=== PATIENT | female | born 1950 | race Caucasian/White ===

== ENCOUNTER 2022-10-08 18:25 | Inpatient (IN) | payer MEDICARE, OTHER, MEDICAID, SELFPAY ==
[2022-10-08 18:35] VITALS: BP 172/68; PULSE 77; RESP 22; TEMP 36.7; O2SAT 97; BMI 39.1
--- NOTE | 2022-10-08 19:01 | ECG_ITS ---
[facility] Test Date: 2022-10-08 Pat Name: Kate Moore Department: Room: - Gender: Female [employer] T[employer] Off: : 1950 Requested By: BARRY RENDON Order Number: [id number] Reading MD: LALI RIVERA Measurements Intervals [place] Rate: 76 P: -[id number] GA: -[id number] QRS: 65 QRSD: 74 T: 4 QT: 394 QTc: 424 Interpretive Statements SINUS RHYTHM Inf wall T wave inversion - possile INferior wall ischemia 9140 abnormal rhythm ECG No previous ECG available for comparison Electronically Signed On 10-09-2022 5:44:01 EDT by LALI RIVERA
--- NOTE | 2022-10-08 19:01 | XR_ITS ---
The [address] [address] Patient Name: MARTIN HAGEN MRN: [id number] date: 1950 Sex: F Assigned Patient Location: ER Current Patient Location: ER Accession/Order Number: [id number] Exam Date: 10/08/2022 19:27 Report Date: 10/08/2022 19:57 At the request of: TOD SANTANA Procedure: XR chest 1V EXAM: XR chest 1V HISTORY: Shortness of breath. COMPARISON: 09/06/2022. TECHNIQUE: AP erect portable chest radiograph performed. FINDINGS: The mandible/chin obscure portions of the thoracic inlet/lung apices. The trachea is unremarkable. There is stable mild enlargement of the cardiomediastinal silhouette which is partially obscured. There is pulmonary vascular congestion with diffuse airspace disease and small bilateral pleural effusions which in the right clinical setting are consistent with congestive heart failure with pulmonary edema. There is a calcified granuloma within the left upper chest. There is no acute osseous abnormality. There are degenerative changes at the glenohumeral articulations, severe on the left and moderate on the right. There is an old ununited fracture of the surgical neck of the proximal left humerus on the previous examination which was not included within the field of imaging on the current examination. There is no pneumothorax. IMPRESSION: Findings which in the right clinical setting are consistent with congestive heart failure with pulmonary edema. Appropriate medical treatment and follow-up chest radiographs to confirm complete resolution recommended. Electronically authenticated by: SIMON NORIEGA Date: 10/08/2022 19:57
--- NOTE | 2022-10-08 19:01 | ED_ITS ---
Documented by User: Mia Sanchez 10/08/22 20:52 HPI - General Adult General Chief complaint: Upper Respiratory Infection Stated complaint: DIFF BREATHING, EDEMA LEGS Time Seen by Provider: 10/08/22 18:55 Source: patient and family Mode of arrival: Wheelchair Limitations: no limitations History of Present Illness HPI narrative: 71-year-old female with a history of congestive heart failure presents to [place] chief complaint bilateral lower extremity edema and shortness of breath. Patient states she has not felt well for the last several days. She does were two there is actually a homeless increase it to three. Daughter is speaking Percocet patient states she is too short of breath. On sounds are clear and diminished. Patient was seen by home health nurse earlier today call primary care physician Dr. Barber and he told her come to the emergency room for evaluation. Related Data Home Medications Medication Instructions Recorded Confirmed albuterol sulfate 2.5 mg/3 mL 2.5 mg continuous nebulization Q6H 10/08/22 10/08/22 (0.083 %) solution for nebulization PRN shortness of breath or wheezing albuterol sulfate 90 mcg/actuation 2 puff inhalation Q4H PRN 10/08/22 10/08/22 aerosol inhaler (Ventolin HFA) shortness of breath or wheezing alprazolam 1 mg tablet 1 mg PO BID PRN anxiety 10/08/22 10/08/22 apixaban 5 mg tablet (Eliquis) 5 mg PO BID 10/08/22 10/08/22 brexpiprazole 1 mg tablet (Rexulti) 1 mg PO QDAY 10/08/22 10/08/22 bumetanide 1 mg tablet 1 mg PO QDAY 10/08/22 10/08/22 calcium carbonate 600 mg-vitamin 1 tab PO BID 10/08/22 10/08/22 D3 10 mcg (400 unit) tablet cyclobenzaprine 10 mg tablet 10 mg PO TID PRN muscle spasm 10/08/22 10/08/22 dulaglutide 0.75 mg/0.5 mL 0.75 mg subcut QWEEK PRN high 10/08/22 10/08/22 subcutaneous pen injector blood sugar (Trulicity) fluoxetine 40 mg capsule 40 mg PO DAILY 10/08/22 10/08/22 magnesium oxide 400 mg (241.3 mg 400 mg PO BID 10/08/22 10/08/22 magnesium) tablet metoprolol tartrate 50 mg tablet 50 mg PO BID 10/08/22 10/08/22 omeprazole 40 mg capsule,delayed 40 mg PO BID 10/08/22 10/08/22 release tizanidine 4 mg tablet 4 mg PO TID PRN muscle spasticity 10/08/22 10/08/22 Allergies Allergy/AdvReac Type Severity Reaction Status Date / Time No Known Drug Allergies Allergy Verified 10/08/22 18:42 Review of Systems ROS Narrative All Systems are negative except as noted/marked.All systems reviewed and otherwise negative [facility] Medical History (Updated 10/09/22 @ 00:42 by Jennifer Trejo) Surgical History (Updated 10/09/22 @ 00:41 by Jennifer Trejo) Family History (Updated 10/09/22 @ 00:43 by Jennifer Trejo) Family/Other Family history of CHF (congestive heart failure) Family history of COPD (chronic obstructive pulmonary disease) Family history of hypertension Social History (Updated 10/09/22 @ 00:44 by Jennifer Trejo) Smoking status: Current every day smoker Second hand tobacco smoke exposure: No Non-prescribed substance use: denies use Previous occupational history: retired Known occupational exposures/hazards: Yes Highest level of school completed/degree received: some college, no degree Are you now , , , , never or living with a partner: In a typical week, how many times do you talk on the telephone with family, friends, or neighbors: 3 or more times per week How often do you get together with friends or relatives: 3 or more times per week How often do you attend jain or jain services: 1-3 times per year Do you belong to any clubs or organizations such as jain groups unions, fraternal or athletic groups, or school groups: no Total score: 1 Score interpretation: A score of less than or equal to 1 indicates the most socially isolated. Little interest or pleasure in doing things: not at all Feeling down, depressed, or hopeless: not at all Feel stressed/tense/nervous/anxious/difficulty sleeping: not at all Due to disability, difficulty making decisions: No Do you think of yourself as: straight/heterosexual Gender Identity: female Exam Narrative Exam Narrative: General: The patient appears ill and mild apparent distress. Patient is sitting up at bedside because she cannot lay back Skin: Warm, dry, no pallor noted. There is no rash noted. Head: Normocephalic, atraumatic Eye: Normal conjunctiva, no drainage, EOMI. PERRL Ears, Nose, Mouth, and Throat: oral mucosa is moist. Nares patent. Mouth without vesicles. Ear canals patent. Tm's without Erythema Cardiovascular: Regular Rate and Rhythm Respiratory: increased respiratory rate, diminished with crackles, Patient is in no distress, no accessory muscle use, lungs are clear to auscultation, no wheezing, rales or rhonchi Back: non-tender, no CVA tenderness bilaterally to percussion. GI: Normal bowel sounds, no tenderness to palpation, no masses appreciated. No rebound, guarding, or rigidity noted. Musculoskeletal: biLateral lower extremity edema 2+ , The patient has no evidence of calf tenderness, symmetrical pulses noted bilaterally Neurological: A&O x4, normal speech Psychiatric: Cooperative Constitutional Vital Signs - 24 hr 10/08/22 18:35 10/08/22 19:25 10/08/22 19:41 Temperature 98.1 F Pulse Rate Pulse Rate [Monitor] 77 Respiratory Rate 22 Blood Pressure 168/68 H Blood Pressure [Right Arm] 172/68 H Pulse Oximetry 97 Oxygen Delivery Method Nasal Cannula Nasal Cannula Oxygen Delivery Flow Rate 3 3 10/08/22 20:29 Temperature Pulse Rate 89 Pulse Rate [Monitor] Respiratory Rate 28 H Blood Pressure 156/104 H Blood Pressure [Right Arm] Pulse Oximetry 96 Oxygen Delivery Method Oxygen Delivery Flow Rate 3 Course Vital Signs Vital signs: Vital Signs Temperature 98.1 F 10/08/22 18:35 Pulse Rate 77 10/08/22 18:35 Respiratory Rate 22 10/08/22 18:35 Blood Pressure 172/68 H 10/08/22 18:35 Pulse Oximetry 97 10/08/22 18:35 Oxygen Delivery Method Nasal Cannula 10/08/22 18:35 Oxygen Delivery Flow Rate 3 10/08/22 18:35 Temperature 98.0 F 10/10/22 05:00 Pulse Rate 76 10/10/22 10:05 Respiratory Rate 18 10/10/22 05:00 Blood Pressure 125/72 H 10/10/22 05:00 Pulse Oximetry 94 L 10/10/22 05:00 Oxygen Delivery Method Room Air 10/10/22 05:00 Oxygen Delivery Flow Rate 2 10/10/22 05:00 Medical Decision Making MDM Narrative Medical decision making narrative: Patient presented chief complaint of bilateral lower extremity edema shortness of breath. Patient has a history of anemia and congestive heart failure. She states her bilateral lower extremity is examined swelling. She was seen by home health care nurse today and they called her primary care physician who told her to the emergency room. Patient evaluated here. She is unable to lay backwards for flat due to shortness of breath. BNP is elevated here twenty-two thousand, calcium is low, chest x-rays consistent with congestive heart failure. Patient was given Lasix here in emergency room she does seem better at this time. Blood pressure heart rate have improved. She does have a history of atrial fib and eliquis. She'll be admitted for congestive heart failure, pulmonary edema. Differential Diagnosis Differential Diagnosis: HF, chronic obstructive pulmonary disease, pneumonia Medical Records Medical records reviewed: Yes I reviewed the patient's medical records Lab Data Lab results reviewed: Yes I reviewed the patient's lab results Labs: Lab Results 10/08/22 Range/Units 19:10 WBC 8.1 (4.0-11.0) 10^3/uL RBC 2.77 L (4.20-5.40) 10^6/uL Hgb 8.1 L (12.0-16.0) g/dL Hct 27.5 L (36.0-48.0) % MCV 99.3 H (81.0-99.0) fL MCH 29.2 (26.7-34.0) pg MCHC 29.5 L (29.9-35.2) g/dL RDW 14.5 (11.0-15.0) % Plt Count 196 (150-450) 10^3/uL MPV 9.7 (9.5-13.5) fL Neut % (Auto) 72.8 (43.0-75.0) % Lymph % (Auto) 18.0 L (20.5-60.0) % [place] % (Auto) 6.0 (1.7-12.0) % Eos % (Auto) 2.6 (0.9-7.0) % Baso % (Auto) 0.4 (0.2-2.0) % Neut # (Auto) 5.9 (1.4-6.5) 10^3/uL Lymph # (Auto) 1.5 (1.2-3.8) 10^3/uL [place] # (Auto) 0.5 (0.3-0.8) 10^3/uL Eos # (Auto) 0.2 (0.0-0.7) 10^3/uL Baso # (Auto) 0.0 (0.0-0.1) 10^3/uL Abs Immat Gran (auto) 0.02 (0.00-0.03) 10^3/uL Imm/Tot Granulo (auto) 0.2 (0.0-0.5) % PT 12.0 H (9.0-11.6) sec INR 1.14 APTT 30.3 (22.3-36.2) sec Sodium 142 (136-145) mmol/L Potassium 5.1 (3.5-5.1) mmol/L Chloride 103 (98-107) mmol/L Carbon Dioxide 34.4 H (21.0-32.0) mmol/L Anion Gap 9.7 BUN 29.0 H (7.0-18.0) mg/dL Creatinine 1.70 H (0.55-1.02) mg/dL Est GFR ( Amer) 36 L (>=60) Est GFR (Non-Af Amer) 29 L (>=60) BUN/Creatinine Ratio 17.1 Glucose 174 H (74-106) mg/dL Calcium 7.3 L (8.5-10.1) mg/dL Total Bilirubin 0.2 (0.2-1.0) mg/dL AST 15 (15-37) U/L ALT 14 (14-59) U/L Alkaline Phosphatase 78 (46-116) U/L Troponin I High Sens 10.9 (4.0-51.3) pg/mL NT-Pro-B Natriuret Pep 00410.0 H* (<=900.0) pg/mL Total Protein 6.3 L (6.4-8.2) g/dL Albumin 2.2 L (3.4-5.0) g/dL Globulin 4.1 g/dL Albumin/Globulin Ratio 0.5 ECG Data Attestation: I personally reviewed and interpreted this ECG as follows: Pacemaker model: 191 atrial fibrillation rate 76 , qrs 74 ms history of afib Discharge Plan Discharge Chief Complaint: Upper Respiratory Infection Clinical Impression: Acute kidney injury, CHF (congestive heart failure), Hypocalcemia, Anemia Patient Disposition: Admitted As Inpatient Time of Disposition Decision: 20:58 Condition: Fair Discharge Date/Time: 10/08/22 23:12 Documented by User: Evelia Marley MD 10/10/22 11:04 HPI - General Adult General Chief complaint: Upper Respiratory Infection Stated complaint: DIFF BREATHING, EDEMA LEGS Time Seen by Provider: 10/08/22 18:55 History of Present Illness HPI narrative: 71-year-old female with a history of congestive heart failure presents to the emergency department w chief complaint bilateral lower extremity edema and shortness of breath. Patient states she has not felt well for the last several days. She does wear 2LNCAt home and they had to increase it to 3 L nasal cannula.. Daughter States the patient is short of breath. lung sounds sounds are clear and diminished. Patient was seen by home health nurse earlier today call primary care physician Dr. Barber and he told her come to the emergency room for evaluation. Related Data Home Medications Medication Instructions Recorded Confirmed albuterol sulfate 2.5 mg/3 mL 2.5 mg continuous nebulization Q6H 10/08/22 10/08/22 (0.083 %) solution for nebulization PRN shortness of breath or wheezing albuterol sulfate 90 mcg/actuation 2 puff inhalation Q4H PRN 10/08/22 10/08/22 aerosol inhaler (Ventolin HFA) shortness of breath or wheezing alprazolam 1 mg tablet 1 mg PO BID PRN anxiety 10/08/22 10/08/22 apixaban 5 mg tablet (Eliquis) 5 mg PO BID 10/08/22 10/08/22 brexpiprazole 1 mg tablet (Rexulti) 1 mg PO QDAY 10/08/22 10/08/22 bumetanide 1 mg tablet 1 mg PO QDAY 10/08/22 10/08/22 calcium carbonate 600 mg-vitamin 1 tab PO BID 10/08/22 10/08/22 D3 10 mcg (400 unit) tablet cyclobenzaprine 10 mg tablet 10 mg PO TID PRN muscle spasm 10/08/22 10/08/22 dulaglutide 0.75 mg/0.5 mL 0.75 mg subcut QWEEK PRN high 10/08/22 10/08/22 subcutaneous pen injector blood sugar (Trulicity) fluoxetine 40 mg capsule 40 mg PO DAILY 10/08/22 10/08/22 magnesium oxide 400 mg (241.3 mg 400 mg PO BID 10/08/22 10/08/22 magnesium) tablet metoprolol tartrate 50 mg tablet 50 mg PO BID 10/08/22 10/08/22 omeprazole 40 mg capsule,delayed 40 mg PO BID 10/08/22 10/08/22 release tizanidine 4 mg tablet 4 mg PO TID PRN muscle spasticity 10/08/22 10/08/22 Allergies Allergy/AdvReac Type Severity Reaction Status Date / Time No Known Drug Allergies Allergy Verified 10/08/22 18:42 [facility] Medical History (Updated 10/09/22 @ 00:42 by Jennifer Trejo) Surgical History (Updated 10/09/22 @ 00:41 by Jennifer Trejo) Family History (Updated 10/09/22 @ 00:43 by Jennifer Trejo) Family/Other Family history of CHF (congestive heart failure) Family history of COPD (chronic obstructive pulmonary disease) Family history of hypertension Social History (Updated 10/09/22 @ 00:44 by Jennifer Trejo) Smoking status: Current every day smoker Second hand tobacco smoke exposure: No Non-prescribed substance use: denies use Previous occupational history: retired Known occupational exposures/hazards: Yes Highest level of school completed/degree received: some college, no degree Are you now , , , , never or living with a partner: In a typical week, how many times do you talk on the telephone with family, friends, or neighbors: 3 or more times per week How often do you get together with friends or relatives: 3 or more times per week How often do you attend jain or jain services: 1-3 times per year Do you belong to any clubs or organizations such as jain groups unions, fraternal or athletic groups, or school groups: no Total score: 1 Score interpretation: A score of less than or equal to 1 indicates the most socially isolated. Little interest or pleasure in doing things: not at all Feeling down, depressed, or hopeless: not at all Feel stressed/tense/nervous/anxious/difficulty sleeping: not at all Due to disability, difficulty making decisions: No Do you think of yourself as: straight/heterosexual Gender Identity: female Exam Constitutional Vital Signs - 24 hr 10/08/22 18:35 10/08/22 19:25 10/08/22 19:41 Temperature 98.1 F Pulse Rate Pulse Rate [Monitor] 77 Respiratory Rate 22 Blood Pressure 168/68 H Blood Pressure [Right Arm] 172/68 H Pulse Oximetry 97 Oxygen Delivery Method Nasal Cannula Nasal Cannula Oxygen Delivery Flow Rate 3 3 10/08/22 20:29 Temperature Pulse Rate 89 Pulse Rate [Monitor] Respiratory Rate 28 H Blood Pressure 156/104 H Blood Pressure [Right Arm] Pulse Oximetry 96 Oxygen Delivery Method Oxygen Delivery Flow Rate 3 Course Vital Signs Vital signs: Vital Signs Temperature 98.1 F 10/08/22 18:35 Pulse Rate 77 10/08/22 18:35 Respiratory Rate 22 10/08/22 18:35 Blood Pressure 172/68 H 10/08/22 18:35 Pulse Oximetry 97 10/08/22 18:35 Oxygen Delivery Method Nasal Cannula 10/08/22 18:35 Oxygen Delivery Flow Rate 3 10/08/22 18:35 Temperature 98.0 F 10/10/22 05:00 Pulse Rate 76 10/10/22 10:05 Respiratory Rate 18 10/10/22 05:00 Blood Pressure 125/72 H 10/10/22 05:00 Pulse Oximetry 94 L 10/10/22 05:00 Oxygen Delivery Method Room Air 10/10/22 05:00 Oxygen Delivery Flow Rate 2 10/10/22 05:00 Medical Decision Making Lab Data Labs: Lab Results 10/08/22 Range/Units 19:10 WBC 8.1 (4.0-11.0) 10^3/uL RBC 2.77 L (4.20-5.40) 10^6/uL Hgb 8.1 L (12.0-16.0) g/dL Hct 27.5 L (36.0-48.0) % MCV 99.3 H (81.0-99.0) fL MCH 29.2 (26.7-34.0) pg MCHC 29.5 L (29.9-35.2) g/dL RDW 14.5 (11.0-15.0) % Plt Count 196 (150-450) 10^3/uL MPV 9.7 (9.5-13.5) fL Neut % (Auto) 72.8 (43.0-75.0) % Lymph % (Auto) 18.0 L (20.5-60.0) % [place] % (Auto) 6.0 (1.7-12.0) % Eos % (Auto) 2.6 (0.9-7.0) % Baso % (Auto) 0.4 (0.2-2.0) % Neut # (Auto) 5.9 (1.4-6.5) 10^3/uL Lymph # (Auto) 1.5 (1.2-3.8) 10^3/uL [place] # (Auto) 0.5 (0.3-0.8) 10^3/uL Eos # (Auto) 0.2 (0.0-0.7) 10^3/uL Baso # (Auto) 0.0 (0.0-0.1) 10^3/uL Abs Immat Gran (auto) 0.02 (0.00-0.03) 10^3/uL Imm/Tot Granulo (auto) 0.2 (0.0-0.5) % PT 12.0 H (9.0-11.6) sec INR 1.14 APTT 30.3 (22.3-36.2) sec Sodium 142 (136-145) mmol/L Potassium 5.1 (3.5-5.1) mmol/L Chloride 103 (98-107) mmol/L Carbon Dioxide 34.4 H (21.0-32.0) mmol/L Anion Gap 9.7 BUN 29.0 H (7.0-18.0) mg/dL Creatinine 1.70 H (0.55-1.02) mg/dL Est GFR ( Amer) 36 L (>=60) Est GFR (Non-Af Amer) 29 L (>=60) BUN/Creatinine Ratio 17.1 Glucose 174 H (74-106) mg/dL Calcium 7.3 L (8.5-10.1) mg/dL Total Bilirubin 0.2 (0.2-1.0) mg/dL AST 15 (15-37) U/L ALT 14 (14-59) U/L Alkaline Phosphatase 78 (46-116) U/L Troponin I High Sens 10.9 (4.0-51.3) pg/mL NT-Pro-B Natriuret Pep 86830.0 H* (<=900.0) pg/mL Total Protein 6.3 L (6.4-8.2) g/dL Albumin 2.2 L (3.4-5.0) g/dL Globulin 4.1 g/dL Albumin/Globulin Ratio 0.5 Discharge Plan Discharge Chief Complaint: Upper Respiratory Infection Clinical Impression: Acute kidney injury, CHF (congestive heart failure), Hypocalcemia, Anemia Patient Disposition: Admitted As Inpatient Time of Disposition Decision: 20:58 Condition: Fair Discharge Date/Time: 10/08/22 23:12
[2022-10-08 19:33] LABS: Basophils Percent Auto 0.4 % (0.2-2.0); Eosinophils Absolute Auto 0.2 10^3/uL (0.0-0.7); Eosinophils Percent Auto 2.6 % (0.9-7.0); Hematocrit 27.5 % (36.0-48.0); Hemoglobin 8.1 g/dL (12.0-16.0); Immature Granulocytes Abs Auto 0.02 10^3/uL (0.00-0.03); Immature Granulocytes Pct Auto 0.2 % (0.0-0.5); Lymphocytes Absolute Auto 1.5 10^3/uL (1.2-3.8); Mean Corpuscular HGB Conc 29.5 g/dL (29.9-35.2); Mean Corpuscular Hemoglobin 29.2 pg (26.7-34.0); Mean Corpuscular Volume 99.3 fL (81.0-99.0); Mean Platelet Volume 9.7 fL (9.5-13.5); Monocytes Absolute Auto 0.5 10^3/uL (0.3-0.8); Neutrophils Absolute Auto 5.9 10^3/uL (1.4-6.5); Neutrophils Percent Auto 72.8 % (43.0-75.0); Platelet Count 196 10^3/uL (150-450); Red Blood Count 2.77 10^6/uL (4.20-5.40); Red Cell Distribution Width 14.5 % (11.0-15.0); White Blood Count 8.1 10^3/uL (4.0-11.0)
[2022-10-08 19:41] VITALS: BP 168/68
[2022-10-08] MEDS: FUROSEMIDE 20 MG/2 ML VIAL IVP (19:41)
[2022-10-08 20:00] LABS: INR 1.14; Partial Thromboplastin Time 30.3 sec (22.3-36.2)
[2022-10-08 20:22] LABS: Alanine Aminotransferase 14 U/L (14-59); Albumin Globulin Ratio 0.5; Albumin Level 2.2 g/dL (3.4-5.0); Alkaline Phosphatase 78 U/L (46-116); Anion Gap 9.7; Aspartate Amino Transferase 15 U/L (15-37); BUN Creatinine Ratio 17.1; Bilirubin Total 0.2 mg/dL (0.2-1.0); Calcium 7.3 mg/dL (8.5-10.1); Carbon Dioxide 34.4 mmol/L (21.0-32.0); Chloride 103 mmol/L (98-107); Estimated GFR (African America 36 (>=60); Estimated GFR (Non-African Ame 29 (>=60); Globulin 4.1 g/dL; Glucose 174 mg/dL (74-106); Potassium 5.1 mmol/L (3.5-5.1); Sodium 142 mmol/L (136-145); Total Protein 6.3 g/dL (6.4-8.2)
[2022-10-08 20:28] LABS: Troponin I High Sensitivity 10.9 pg/mL (4.0-51.3)
[2022-10-08 20:29] VITALS: BP 156/104; PULSE 89; RESP 28; O2SAT 96
[2022-10-08 21:04] VITALS: BP 162/100; PULSE 71; RESP 26; O2SAT 98
[2022-10-08 21:32] VITALS: BP 159/87; PULSE 76; RESP 26; O2SAT 98
--- NOTE | 2022-10-08 21:56 | PC.NURSE ---
called [facility] pharmacy to have med pushed over
[2022-10-08] MEDS: CALCIUM CARBONATE 600 MG TABLET PO (23:02)
[2022-10-08 23:19] VITALS: BP 136/61; PULSE 76; PULSE 81; RESP 20; TEMP 36.1; O2SAT 92; BMI 19.7
--- NOTE | 2022-10-08 23:25 | PC.NURSE ---
Report given to BENITO Rodriguez, pt's glasses, dentures, cane and blood glucose monitor transferred up with pt.
[2022-10-09] VITALS (23 sets, daily range): BP systolic 123–158; BP diastolic 70–78; PULSE 69–99; RESP 16–20; TEMP 36.4–36.8; O2SAT 85–99; BMI 34.0
[2022-10-09 02:11] LABS: Troponin I High Sensitivity 10.6 pg/mL (4.0-51.3)
--- NOTE | 2022-10-09 02:28 | PC.NURSE ---
Patient straight cathed for return of 250 cloudy yellow urine
[2022-10-09] MEDS: BUMETANIDE 1 MG/4 ML VIAL IVP (02:41)
--- NOTE | 2022-10-09 06:35 | CA_ITS ---
Patient: MARTIN HAGEN Exam Date: 10/09/2022 : 1950 Gender:F Ordering : DR Angel Luis Uriarte . Admission #: [id number] Family : DR BARRY RENDON M.D. Order #: [id number] CLICK HERE TO VIEW EXAM ECHOCARDIOGRAM REPORT PROCEDURE: CA ECHO LIMITED INDICATIONS: chf COMPARISON: None. DESCRIPTION: Limited ECHOCARDIOGRAM Real-time transthoracic echocardiography with 2D and M-mode performed. QUALITY: Technical quality was good. LEFT VENTRICLE: Normal chamber size. Moderate concentric left ventricular hypertrophy. D- shaped septum consistent with right ventricular pressure and/or volume overload. LV EF: Hyperdynamic left ventricular systolic function. Calculated left ventricular ejection fraction is 73%. ATRIAL SEPTUM: Inadequately seen LEFT ATRIUM: Severe dilatation. RIGHT ATRIUM: Severe dilatation. RIGHT VENTRICLE: Moderate dilatation. Decreased right ventricular systolic function. TRICUSPID VALVE: Normal mobility and thickness. MITRAL VALVE: Mildly thickened with normal mobility. Moderate mitral annular calcification. AORTIC VALVE: Normal trileaflet appearance. Moderately calcified aortic valve. AORTIC ROOT: Normal diameter and appearance. PULMONIC VALVE: Not well visualized. PERICARDIUM: Anterior free space; trivial effusion versus fat pad. IVC: Mild dilatation. Measuring 2.3cm with no collapse. CONCLUSION: 1. Global left ventricular systolic function is hyperdynamic; visually estimated ejection fraction is 65 to 70%. 2. Moderately increased left ventricular wall thickness. 3. D-shaped septum consistent with right ventricular pressure and volume overload. 4. The right ventricle is moderately dilated with reduced systolic function. 5. Severe biatrial enlargement. 6. Anterior free space; trivial effusion versus fat pad. A limited echocardiogram was performed. Adult Echocardiography Procedure Report Left Ventricle LVEDD (3.7 - 5.6 cm): 5.30 cm LVESD (2.2 - 4.0 cm): 3.53 cm LVIVS thickness (0.6 - 1.2 cm): 1.50 cm LVPW thickness (0.5 - 1.0 cm): 1.26 cm LVOT Diameter 1.80 cm Left Ventricular Ejection Fraction: 72.60 % Left Atrium LA Volume Index (2D A2C): 68.23 ml/m2 Left Atrium Systolic Dimension: 5.63 cm Mitral Valve Right Ventricle RV Internal Diastolic Dimension: 4.35 cm Aorta AO Root Diam: 3.26 cm Aortic Valve Tricuspid Valve Pulmonic Valve Right Atrium Right Atrium Systolic Pressure: 87.65 ml, 87.65 ml Dictated by: Robson Maxwell M.D. on 10/09/2022 at 12:03 Approved by: Robson Maxwell M.D. on 10/09/2022 at 12:10
[2022-10-09] MEDS: ISOSORBIDE MONONITRATE 30 MG TAB.ER.24H PO (07:39)
[2022-10-09 08:08] LABS: Bilirubin Urine NEGATIVE (NEGATIVE); Blood Urine SMALL (NEGATIVE); Clarity Urine CLEAR (CLEAR); Color Urine LT. YELLOW (YELLOW); Glucose Urine UA NEGATIVE (NEGATIVE); Ketones Urine NEGATIVE (NEGATIVE); Leukocyte Esterase Urine NEGATIVE (NEGATIVE); Nitrite Urine NEGATIVE (NEGATIVE); Protein Urine >=300 mg/dL (NEG/TRACE); Specific Gravity Urine 1.025 (1.005-1.025); Urobilinogen Urine 0.2 EU/dL (0.2-1.0); pH Urine 5.5 (5.0-9.0)
[2022-10-09 08:23] LABS: Bacteria Urine TRACE #/HPF (NONE SEEN)
[2022-10-09 08:24] LABS: Cast Seen? NONE SEEN #/LPF (NONE SEEN); Crystals Seen? None Seen #/HPF (None Seen); Mucus Urine NONE SEEN (NONE SEEN); Squamous Epithelial Cell Urine FEW #/LPF (NONE/RARE); Urine Culture Indicated ALREADY ORDERED
[2022-10-09] MEDS: BUMETANIDE 10 MG in 0.9 % SODIUM CHLORIDE 160 ML 20 MG IV (08:24)
[2022-10-09] MEDS: CALCIUM CARBONATE/VITAMIN D3 1 EACH TABLET 1 TAB PO ×2 (08:36→21:28)
[2022-10-09] MEDS: ALPRAZOLAM 1 MG TABLET PO (08:36)
[2022-10-09] MEDS: METOPROLOL TARTRATE 50 MG TABLET PO ×2 (08:36→21:28)
[2022-10-09] MEDS: FLUOXETINE HCL 20 MG CAPSULE 40 MG PO (08:36)
[2022-10-09] MEDS: MAGNESIUM OXIDE 400 MG TABLET PO ×2 (08:36→21:28)
[2022-10-09] MEDS: APIXABAN 5 MG TABLET PO ×2 (08:37→21:28)
[2022-10-09] MEDS: OMEPRAZOLE 40 MG CAPSULE.DR PO ×2 (08:37→21:28)
--- NOTE | 2022-10-09 09:22 | P.HP_ITS ---
H&P: HPI History of Present Illness Chief complaint: DIFF BREATHING, EDEMA LEGS Narrative: Patient presented to the emergency room with increasing shortness of breath. She has a history of acute congestive heart failure in the past. On admission. [facility] Medical History (Updated 10/09/22 @ 00:42 by Jennifer Trejo) Surgical History (Updated 10/09/22 @ 00:41 by Jennifer Trejo) Family History (Updated 10/09/22 @ 00:43 by Jennifer Trejo) Family/Other Family history of CHF (congestive heart failure) Family history of COPD (chronic obstructive pulmonary disease) Family history of hypertension Social History (Updated 10/09/22 @ 00:44 by Jennifer Trejo) Smoking status: Current every day smoker Second hand tobacco smoke exposure: No Non-prescribed substance use: denies use Previous occupational history: retired Known occupational exposures/hazards: Yes Highest level of school completed/degree received: some college, no degree Are you now , , , , never or living with a partner: In a typical week, how many times do you talk on the telephone with family, friends, or neighbors: 3 or more times per week How often do you get together with friends or relatives: 3 or more times per week How often do you attend religion or religion services: 1-3 times per year Do you belong to any clubs or organizations such as religion groups unions, fraternal or athletic groups, or school groups: no Total score: 1 Score interpretation: A score of less than or equal to 1 indicates the most socially isolated. Little interest or pleasure in doing things: not at all Feeling down, depressed, or hopeless: not at all Feel stressed/tense/nervous/anxious/difficulty sleeping: not at all Due to disability, difficulty making decisions: No Do you think of yourself as: straight/heterosexual Gender Identity: female Meds Home Medications and Allergies Home Medications Medication Instructions Recorded Confirmed Type albuterol sulfate 2.5 mg/3 mL 2.5 mg continuous nebulization Q6H 10/08/22 10/08/22 History (0.083 %) solution for nebulization PRN shortness of breath or wheezing albuterol sulfate 90 mcg/actuation 2 puff inhalation Q4H PRN 10/08/22 10/08/22 History aerosol inhaler (Ventolin HFA) shortness of breath or wheezing alprazolam 1 mg tablet 1 mg PO BID PRN anxiety 10/08/22 10/08/22 History apixaban 5 mg tablet (Eliquis) 5 mg PO BID 10/08/22 10/08/22 History brexpiprazole 1 mg tablet (Rexulti) 1 mg PO QDAY 10/08/22 10/08/22 History bumetanide 1 mg tablet 1 mg PO QDAY 10/08/22 10/08/22 History calcium carbonate 600 mg-vitamin 1 tab PO BID 10/08/22 10/08/22 History D3 10 mcg (400 unit) tablet cyclobenzaprine 10 mg tablet 10 mg PO TID PRN muscle spasm 10/08/22 10/08/22 History dulaglutide 0.75 mg/0.5 mL 0.75 mg subcut QWEEK PRN high 10/08/22 10/08/22 History subcutaneous pen injector blood sugar (Trulicity) fluoxetine 40 mg capsule 40 mg PO DAILY 10/08/22 10/08/22 History magnesium oxide 400 mg (241.3 mg 400 mg PO BID 10/08/22 10/08/22 History magnesium) tablet metoprolol tartrate 50 mg tablet 50 mg PO BID 10/08/22 10/08/22 History omeprazole 40 mg capsule,delayed 40 mg PO BID 10/08/22 10/08/22 History release tizanidine 4 mg tablet 4 mg PO TID PRN muscle spasticity 10/08/22 10/08/22 History Allergies Allergy/AdvReac Type Severity Reaction Status Date / Time No Known Drug Allergies Allergy Verified 10/08/22 18:42 Exam Constitutional Vital Signs - 24 hr 10/08/22 18:35 10/08/22 19:25 10/08/22 19:41 Temperature 98.1 F Pulse Rate Pulse Rate [Monitor] 77 Respiratory Rate 22 Blood Pressure 168/68 H Blood Pressure [Right Arm] 172/68 H Pulse Oximetry 97 Oxygen Delivery Method Nasal Cannula Nasal Cannula Oxygen Delivery Flow Rate 3 3 10/08/22 20:29 10/08/22 21:04 10/08/22 21:32 Temperature Pulse Rate 89 71 76 Pulse Rate [Monitor] Respiratory Rate 28 H 26 H 26 H Blood Pressure 156/104 H 162/100 H 159/87 H Blood Pressure [Right Arm] Pulse Oximetry 96 98 98 Oxygen Delivery Method Oxygen Delivery Flow Rate 3 3 3 10/08/22 23:19 10/08/22 23:19 10/08/22 23:19 Temperature 97 F L Pulse Rate 81 76 Pulse Rate [Monitor] Respiratory Rate 20 Blood Pressure Blood Pressure [Right Arm] 136/61 H Pulse Oximetry 92 L Oxygen Delivery Method Nasal Cannula Nasal Cannula Oxygen Delivery Flow Rate 3 10/09/22 00:00 10/09/22 02:00 10/09/22 04:06 Temperature Pulse Rate 76 75 81 Pulse Rate [Monitor] Respiratory Rate Blood Pressure Blood Pressure [Right Arm] Pulse Oximetry Oxygen Delivery Method Oxygen Delivery Flow Rate 10/09/22 04:08 10/09/22 05:48 10/09/22 06:00 Temperature 97.7 F Pulse Rate 78 71 Pulse Rate [Monitor] Respiratory Rate 18 Blood Pressure Blood Pressure [Right Arm] 158/75 H Pulse Oximetry 91 L 90 L Oxygen Delivery Method Nasal Cannula Nasal Cannula Oxygen Delivery Flow Rate 3 3 10/09/22 07:37 10/09/22 08:14 10/09/22 08:00 Temperature 97.9 F Pulse Rate 90 99 H Pulse Rate [Monitor] Respiratory Rate 20 20 Blood Pressure Blood Pressure [Right Arm] 156/78 H Pulse Oximetry 91 L Oxygen Delivery Method Nasal Cannula Oxygen Delivery Flow Rate 3 Common normals: apparent distress Respiratory Effort & inspection: tachypneic Auscultation: rales Cardio Common normals: regular rate and regular rhythm GI Common normals: Normal to inspection, nondistended, normoactive bowel sounds present and soft to palpation Extremity Common normals: abnormal to inspection (2-3+ edema) Results Labs Labs: Short CBC 10/08/22 Range/Units 19:10 WBC 8.1 (4.0-11.0) 10^3/uL Hgb 8.1 L (12.0-16.0) g/dL Hct 27.5 L (36.0-48.0) % Plt Count 196 (150-450) 10^3/uL BMP 10/08/22 19:10 Sodium 142 Potassium 5.1 Chloride 103 Carbon Dioxide 34.4 H BUN 29.0 H Creatinine 1.70 H Glucose 174 H Calcium 7.3 L Liver Function 10/08/22 Range/Units 19:10 Total Bilirubin 0.2 (0.2-1.0) mg/dL AST 15 (15-37) U/L ALT 14 (14-59) U/L Alkaline Phosphatase 78 (46-116) U/L Albumin 2.2 L (3.4-5.0) g/dL Urine 10/09/22 Range/Units 01:55 Urine Color Lt. yellow (YELLOW) Urine Clarity Clear (CLEAR) Urine pH 5.5 (5.0-9.0) Ur Specific Clayton 1.025 (1.005-1.025) Urine Protein >=300 A (NEG/TRACE) mg/dL Urine Glucose (UA) Negative (NEGATIVE) mg/dL Assessment and Plan Assessment and Plan (1) Diabetes: (2) Acute kidney injury: (3) CHF (congestive heart failure): (4) Hypocalcemia: (5) Anemia: Plan Respiratory distress, uncontrolled hypertension, acute hypoxia secondary to acute combined congestive heart failure with peripheral edema and rales on lung exam-we will check an echocardiogram, Bumex drip this morning., Not great output so far with initial treatment, Insulin-dependent diabetes mellitus-insulin sliding scale Cardiac murmur-check an echo Iron deficiency anemia-monitor daily Likely chronic kidney disease stage II worsened by the acute combined congestive heart failure-monitor daily Mild to moderate protein calorie malnutrition-diet management, may need protein supplementation Patient's medical treatment will last more than 2 midnights-we will change patient to inpatient status.
--- NOTE | 2022-10-09 10:09 | CM.NOTE ---
Rounds made with Dr. Uriarte. No plan for discharge today. Currently Kate has [facility]--nursing comes in weekly, PT comes in twice a week. Also has chronic oxygen at 2L/NC from [employer]. Kate lives with daughter and niece and uses a cane or walker. P.T. consult ordered.
--- NOTE | 2022-10-09 10:10 | SWNOTE1 ---
Pt is current with [facility] Li checked previous visit. Pt let Case Management know she had nursing and PT 2x weekly.
--- NOTE | 2022-10-09 10:15 | SWNOTE1 ---
Pt also has home oxygen, 2 liters through [employer].
--- NOTE | 2022-10-09 11:35 | RESP.RT ---
99% on 3 L NC, decreased to 2 LPM
--- NOTE | 2022-10-09 15:08 | SWNOTE1 ---
SW met with pt to discuss dc needs. Pt's daughter in room as well. Pt lives at home with her daughter and niece. She uses a walker at home and wears her home oxygen. SW, pt, and pt's daughter spoke about how she was getting weaker over the last few weeks. Pt's daughter voiced that she needs rehab, short term stay. SW asked pt if she was agreeable. Pt wanted to think about it. SW did review IMM form with pt and daughter. Daughter voiced understanding, pt fell asleep. No questions per daughter. Daughter signed IMM form, no questions. Original given to daughter and copy placed in chart. SW left [email or web address] star rating list in room for them to review nursing homes. SW went back in to talk with pt about rehab. Pt and daughter decided on [facility]. SW let them know that [facility] does not have an opening until early next week. They voiced understanding and decided on [facility]. Referral sent to [facility]. Earliest dc date would be 10/11/22.
--- NOTE | 2022-10-09 16:31 | SWNOTE1 ---
[facility] spoke with Anatoly at [facility] and they are able to accept. They will need H&P and therapy notes sent tomorrow. H&P was not signed Wednesday at 4:32pm. [facility] left number for nursing to fax to [facility] tomorrow. [facility] left packet on floor.
[2022-10-09] MEDS: ONDANSETRON 4 MG RAPDIS TABLET PO (18:22)
[2022-10-09] MEDS: ACETAMINOPHEN 325 MG TABLET 650 MG PO (19:45)
--- NOTE | 2022-10-09 19:48 | PC.NURSE ---
oxygen 88% on2L/nc. Oxygen turned up to 3L/nc
--- NOTE | 2022-10-09 20:07 | RESP.RT ---
Oxygen increased to 3L
[2022-10-10] VITALS (17 sets, daily range): BP systolic 125–153; BP diastolic 71–80; PULSE 64–90; RESP 18–22; TEMP 36.6–36.9; O2SAT 90–94
[2022-10-10] MEDS: ISOSORBIDE MONONITRATE 30 MG TAB.ER.24H PO (05:59)
[2022-10-10 06:22] LABS: Basophils Percent Auto 0.4 % (0.2-2.0); Eosinophils Absolute Auto 0.1 10^3/uL (0.0-0.7); Eosinophils Percent Auto 0.9 % (0.9-7.0); Hematocrit 27.8 % (36.0-48.0); Immature Granulocytes Abs Auto 0.13 10^3/uL (0.00-0.03); Immature Granulocytes Pct Auto 1.7 % (0.0-0.5); Lymphocytes Absolute Auto 1.2 10^3/uL (1.2-3.8); Lymphocytes Percent Auto 15.9 % (20.5-60.0); Mean Corpuscular HGB Conc 28.8 g/dL (29.9-35.2); Mean Corpuscular Hemoglobin 29.4 pg (26.7-34.0); Mean Corpuscular Volume 102.2 fL (81.0-99.0); Mean Platelet Volume 10.4 fL (9.5-13.5); Monocytes Absolute Auto 0.4 10^3/uL (0.3-0.8); Monocytes Percent Auto 4.8 % (1.7-12.0); Neutrophils Absolute Auto 5.7 10^3/uL (1.4-6.5); Neutrophils Percent Auto 76.3 % (43.0-75.0); Platelet Count 199 10^3/uL (150-450); Red Blood Count 2.72 10^6/uL (4.20-5.40); Red Cell Distribution Width 14.8 % (11.0-15.0); White Blood Count 7.5 10^3/uL (4.0-11.0)
[2022-10-10 06:56] LABS: Alanine Aminotransferase 15 U/L (14-59); Albumin Globulin Ratio 0.5; Albumin Level 2.2 g/dL (3.4-5.0); Alkaline Phosphatase 68 U/L (46-116); Anion Gap -0.7; Aspartate Amino Transferase 17 U/L (15-37); BUN Creatinine Ratio 15.9; Bilirubin Total 0.3 mg/dL (0.2-1.0); Calcium 7.7 mg/dL (8.5-10.1); Carbon Dioxide 38.2 mmol/L (21.0-32.0); Chloride 111 mmol/L (98-107); Estimated GFR (African America 33 (>=60); Estimated GFR (Non-African Ame 27 (>=60); Globulin 4.3 g/dL; Glucose 148 mg/dL (74-106); Potassium 5.5 mmol/L (3.5-5.1); Sodium 143 mmol/L (136-145); Total Protein 6.5 g/dL (6.4-8.2)
[2022-10-10] MEDS: FLUOXETINE HCL 20 MG CAPSULE 40 MG PO (09:22)
[2022-10-10] MEDS: APIXABAN 5 MG TABLET PO ×2 (09:22→21:03)
[2022-10-10] MEDS: OMEPRAZOLE 40 MG CAPSULE.DR PO ×2 (09:22→21:02)
[2022-10-10] MEDS: MAGNESIUM OXIDE 400 MG TABLET PO ×2 (09:22→21:02)
[2022-10-10] MEDS: METOPROLOL TARTRATE 50 MG TABLET PO ×2 (09:22→21:02)
[2022-10-10] MEDS: CALCIUM CARBONATE/VITAMIN D3 1 EACH TABLET 1 TAB PO ×2 (09:23→21:02)
--- NOTE | 2022-10-10 09:38 | PT.DAILY ---
Physical Therapy Daily Note PT Daily Note/Assess Start: 10/10/22 09:36 Freq: Status: Active Protocol: Document 10/10/22 09:36 NIK (Rec: 10/10/22 09:38 NIK [id number]) Visit Not Completed Visit Not Completed Visit Not Completed Due to: Other Other Reason Visit Not Completed Patient declined x 1 attempt due to eating breakfast, then patient NA with other staff x 2nd attempt. Physical Therapy Daily Note/Assessment Time In/Time Out Time In 09:30 Time Out 09:35 GG. Functional Abilities and Goals-Complete for Swing Bed Patients Only [id number]. Self-Care [id number]. Mobility
[2022-10-10] MEDS: ALBUTEROL SULFATE 2.5 MG/3 ML VIAL NEB CNTNEBULIZ (11:18)
[2022-10-10] MEDS: INSULIN ASPART 300 UNIT/3 ML PEN SUBQ (11:36)
--- NOTE | 2022-10-10 13:12 | PM.IMPN1 ---
Progress Note: A&P Assessment and Plan (1) Diabetes: Assessment and Plan: On Sliding scale insulin. FSBS reasonably at goal Qualifiers: Diabetes mellitus type: type 2 Diabetes mellitus correction insulin use: without correction use Diabetes mellitus complication status: with kidney complications Diabetes mellitus complication detail: with chronic kidney disease Chronic kidney disease stage 3 subtype: stage 3a (GFR 45-59) Chronic kidney disease stage: stage 3 (moderate) Qualified Code(s): E11.22 - Type 2 diabetes mellitus with diabetic chronic kidney disease; N18.31 - Chronic kidney disease, stage 3a (2) Acute kidney injury: Assessment and Plan: Likely cardiorenal and from volume overload. Needs IV diuresis and close monitoring of her renal function (3) CHF (congestive heart failure): Assessment and Plan: Volume overload on exam, worsening renal function, BNP. Still experiencing dyspnea at rest. Increase Bumex drip infusion rate. Monitor I/O, daily weights. Qualifiers: Heart failure type: diastolic Heart failure chronicity: acute on chronic Qualified Code(s): I50.33 - Acute on chronic diastolic (congestive) heart failure (4) Anemia: Assessment and Plan: Chronic, unchanged. Likely from CKD Qualifiers: Anemia type: due to chronic kidney disease Chronic kidney disease stage: stage 3 (moderate) Chronic kidney disease stage 3 subtype: stage 3b (GFR 30-44) Qualified Code(s): N18.32 - Chronic kidney disease, stage 3b; D63.1 - Anemia in chronic kidney disease (5) CKD (chronic kidney disease) stage 3, GFR 30-59 ml/min: Assessment and Plan: Baseline Cr is 1.5. Monitor UO and Cr closely while on diuretics. (6) Acute and chronic respiratory failure with hypoxia: Assessment and Plan: Back to baseline O2 Requirement. Uses 2 L O via NC (7) Atrial fibrillation: Assessment and Plan: On Lopressor for it. Uses Eliquis for stroke px. C/w same (8) Hypertension: Assessment and Plan: At goal. C/w Lopressor, Imdur. (9) Depression: Assessment and Plan: C/w prozac and rexulti. (10) Generalized weakness: Assessment and Plan: PT/OT evaluation. Lives at home. At baseline walks w/o assistance. (11) Obesity: Assessment and Plan: Would benefit from weight loss. Outpatient f/u Plan C/w IV diuresis, closely monitor UO, renal function. Internal Medicine - PN: Subj Subjective Interval history: Seen and examined. Feels better and back to baseline O2 requirement but still feeling short of breath. No overnight events Exam Constitutional Vital Signs - 24 hr 10/09/22 14:03 10/09/22 16:12 10/09/22 17:08 Temperature 98.2 F Pulse Rate 85 86 Respiratory Rate Blood Pressure [Right Arm] Pulse Oximetry Oxygen Delivery Method Oxygen Delivery Flow Rate 10/09/22 18:11 10/09/22 18:51 10/09/22 19:48 Temperature Pulse Rate 86 Respiratory Rate Blood Pressure [Right Arm] 155/78 H Pulse Oximetry 88 L Oxygen Delivery Method Nasal Cannula Oxygen Delivery Flow Rate 2 10/09/22 19:48 10/09/22 19:47 10/09/22 21:19 Temperature 97.6 F Pulse Rate 85 87 Respiratory Rate 18 Blood Pressure [Right Arm] 123/73 H Pulse Oximetry 85 L 90 L Oxygen Delivery Method Nasal Cannula Nasal Cannula Oxygen Delivery Flow Rate 2 3 10/09/22 21:53 10/09/22 23:55 10/10/22 01:58 Temperature Pulse Rate 86 79 64 Respiratory Rate Blood Pressure [Right Arm] Pulse Oximetry Oxygen Delivery Method Oxygen Delivery Flow Rate 10/10/22 04:00 10/10/22 06:00 10/10/22 05:00 Temperature 98.0 F Pulse Rate 67 71 69 Respiratory Rate 18 Blood Pressure [Right Arm] 125/72 H Pulse Oximetry 94 L Oxygen Delivery Method Room Air Oxygen Delivery Flow Rate 2 10/10/22 08:11 10/10/22 10:05 10/10/22 11:18 Temperature Pulse Rate 73 76 66 Respiratory Rate 22 Blood Pressure [Right Arm] Pulse Oximetry 93 L Oxygen Delivery Method Oxygen Delivery Flow Rate 10/10/22 11:34 10/10/22 11:53 Temperature Pulse Rate 72 69 Respiratory Rate 22 Blood Pressure [Right Arm] Pulse Oximetry Oxygen Delivery Method Oxygen Delivery Flow Rate Documenting provider has reviewed patient's vital signs: yes Common normals: oriented x3 General appearance: cooperative Nutritional appearance: obese Orientation/consciousness: Yes awake, Yes oriented to person and Yes oriented to place Other: appears short of breath HENMT Common normals: normocephalic and head/scalp atraumatic Eye Common normals: conjunctivae normal and no scleral icterus Neck & C-Spine General: other (short thick neck) Respiratory Effort & inspection: symmetric chest movement and other (Appears short of breath, speaking in short sentences) Auscultation: rales bilateral and diminished lung sounds Cardio Common normals: regular rate Rate: regular rate Heart sounds: S1 normal and S2 normal GI Common normals: Normal to inspection, nondistended, normoactive bowel sounds present Palpation: soft and hernia ventral Rectal Exam - Female: deferred Common normals: no CVA tenderness Extremity Common normals: normal to inspection Neuro Common normals: oriented x3, moves all extremities, no focal motor deficits and no sensory deficits noted Psych Common normals: mental status grossly normal, speech normal, denies homicidal ideation and denies suicidal ideation Attitude: calm Internal Medicine - PN: Obj Da Labs Labs: Laboratory Results - last 24 hr 10/10/22 04:30 WBC 7.5 RBC 2.72 L Hgb 8.0 L Hct 27.8 L MCV 102.2 H MCH 29.4 MCHC 28.8 L RDW 14.8 Plt Count 199 MPV 10.4 Neut % (Auto) 76.3 H Lymph % (Auto) 15.9 L Aiken % (Auto) 4.8 Eos % (Auto) 0.9 Baso % (Auto) 0.4 Neut # (Auto) 5.7 Lymph # (Auto) 1.2 Aiken # (Auto) 0.4 Eos # (Auto) 0.1 Baso # (Auto) 0.0 Abs Immat Gran (auto) 0.13 H Imm/Tot Granulo (auto) 1.7 H Sodium 143 Potassium 5.5 H Chloride 111 H Carbon Dioxide 38.2 H Anion Gap -0.7 BUN 29.0 H Creatinine 1.82 H Est GFR ( Amer) 33 L Est GFR (Non-Af Amer) 27 L BUN/Creatinine Ratio 15.9 Glucose 148 H Calcium 7.7 L Total Bilirubin 0.3 AST 17 ALT 15 Alkaline Phosphatase 68 NT-Pro-B Natriuret Pep 25218.0 H* Total Protein 6.5 Albumin 2.2 L Globulin 4.3 Albumin/Globulin Ratio 0.5 Imaging Chest x-ray: Attestation: I have reviewed the pertinent imaging results. (C/w pulmonary edema) Urinary Catheter Management Urinary Catheter Management Straight: Cath placed during this visit: yes Urethral indwelling: No Insertion date: 10/09/22 Insertion time: 09:00
[2022-10-10 13:50] LABS: Adenovirus F 40/41 NOT DETECTED (NOT DETECTE); Astrovirus NOT DETECTED (NOT DETECTE); Campylobacter NOT DETECTED (NOT DETECTE); Cryptosporidium NOT DETECTED (NOT DETECTE); Cyclospora cayetanensis NOT DETECTED (NOT DETECTE); E coli 0157 NOT DETECTED (NOT DETECTE); Entamoeba histolytica NOT DETECTED (NOT DETECTE); Enteroaggregative E.coli NOT DETECTED (NOT DETECTE); Enteropathogenic E.coli NOT DETECTED (NOT DETECTE); Enterotoxigenic E. coli NOT DETECTED (NOT DETECTE); Giardia lamblia NOT DETECTED (NOT DETECTE); Norovirus GI/GII NOT DETECTED (NOT DETECTE); Plesiomonas shigelloides NOT DETECTED (NOT DETECTE); Rotavirus A NOT DETECTED (NOT DETECTE); Salmonella NOT DETECTED (NOT DETECTE); Sapovirus NOT DETECTED (NOT DETECTE); Shiga-like toxin-producing E.C NOT DETECTED (NOT DETECTE); Shigella/Enteroinvasive E.coli NOT DETECTED (NOT DETECTE); Vibrio NOT DETECTED (NOT DETECTE); Vibrio cholerae NOT DETECTED (NOT DETECTE); Yersinia enterocolitica NOT DETECTED (NOT DETECTE)
[2022-10-10] MEDS: BUMETANIDE 10 MG in 0.9 % SODIUM CHLORIDE 160 ML 20 MG IV (14:00)
[2022-10-10 14:14] LABS: Anion Gap 1.1; BUN Creatinine Ratio 19.1; Calcium 7.8 mg/dL (8.5-10.1); Chloride 108 mmol/L (98-107); Estimated GFR (African America 32 (>=60); Estimated GFR (Non-African Ame 26 (>=60); Glucose 122 mg/dL (74-106); Potassium 5.1 mmol/L (3.5-5.1); Sodium 138 mmol/L (136-145)
[2022-10-10] MEDS: ACETAMINOPHEN 325 MG TABLET 650 MG PO (14:37)
[2022-10-10] MEDS: VANCOMYCIN HCL 50 MG/ML SOLN.RECON 250 MG PO ×2 (18:54→21:03)
[2022-10-10] MEDS: ONDANSETRON 4 MG RAPDIS TABLET PO (23:10)
[2022-10-11] VITALS (23 sets, daily range): BP systolic 145–172; BP diastolic 68–83; PULSE 62–88; RESP 16–18; TEMP 36.4–36.9; O2SAT 90–95
[2022-10-11 04:48] LABS: Basophils Percent Auto 0.4 % (0.2-2.0); Eosinophils Absolute Auto 0.1 10^3/uL (0.0-0.7); Eosinophils Percent Auto 1.7 % (0.9-7.0); Hematocrit 26.2 % (36.0-48.0); Hemoglobin 7.6 g/dL (12.0-16.0); Immature Granulocytes Abs Auto 0.03 10^3/uL (0.00-0.03); Immature Granulocytes Pct Auto 0.4 % (0.0-0.5); Lymphocytes Absolute Auto 1.3 10^3/uL (1.2-3.8); Lymphocytes Percent Auto 18.8 % (20.5-60.0); Mean Corpuscular Hemoglobin 28.7 pg (26.7-34.0); Mean Corpuscular Volume 98.9 fL (81.0-99.0); Mean Platelet Volume 9.9 fL (9.5-13.5); Monocytes Absolute Auto 0.4 10^3/uL (0.3-0.8); Monocytes Percent Auto 5.1 % (1.7-12.0); Neutrophils Absolute Auto 5.2 10^3/uL (1.4-6.5); Neutrophils Percent Auto 73.6 % (43.0-75.0); Platelet Count 180 10^3/uL (150-450); Red Blood Count 2.65 10^6/uL (4.20-5.40); Red Cell Distribution Width 14.5 % (11.0-15.0); White Blood Count 7.1 10^3/uL (4.0-11.0)
[2022-10-11 05:15] LABS: Alanine Aminotransferase 14 U/L (14-59); Albumin Globulin Ratio 0.5; Albumin Level 2.2 g/dL (3.4-5.0); Alkaline Phosphatase 64 U/L (46-116); Anion Gap 4.4; Aspartate Amino Transferase 15 U/L (15-37); BUN Creatinine Ratio 18.8; Bilirubin Total 0.3 mg/dL (0.2-1.0); Calcium 8.1 mg/dL (8.5-10.1); Carbon Dioxide 40.4 mmol/L (21.0-32.0); Chloride 100 mmol/L (98-107); Estimated GFR (African America 34 (>=60); Estimated GFR (Non-African Ame 28 (>=60); Globulin 4.1 g/dL; Glucose 145 mg/dL (74-106); Potassium 4.8 mmol/L (3.5-5.1); Sodium 140 mmol/L (136-145); Total Protein 6.3 g/dL (6.4-8.2)
[2022-10-11 05:42] LABS: NT Pro B Type Natriuretic Pept >35000.0 pg/mL (<=900.0)
[2022-10-11] MEDS: VANCOMYCIN HCL 50 MG/ML SOLN.RECON 250 MG PO ×4 (06:13→22:07)
[2022-10-11] MEDS: ISOSORBIDE MONONITRATE 30 MG TAB.ER.24H PO (06:13)
--- NOTE | 2022-10-11 07:11 | XR_ITS ---
The [address] [address] Patient Name: MARTIN HAGEN MRN: [id number] date: 1950 Sex: F Assigned Patient Location: Current Patient Location: Accession/Order Number: [id number] Exam Date: 10/11/2022 05:20 Report Date: 10/11/2022 07:32 At the request of: SHAIKH MARGARITA Procedure: XR chest 1V PROCEDURE: XR chest 1V DATE: 10/11/2022 4:20 AM CDT COMPARISONS: None. CLINICAL INDICATION: 71 years Female Heart failure FINDINGS: The heart is prominent and stable. There is diffuse increased interstitial markings throughout all lung ramirez as on previous exam. This probably represents some interstitial fluid due to congestion. Some of this could represent chronic lung change. It appears there is a small amount of pleural fluid bilaterally, left greater than right. There is no evidence of pneumothorax. There is significant deformity of the left proximal humerus. This is also noted on chest x-ray of 09/06/2022. IMPRESSION: Findings most likely represent pulmonary vascular congestion with small pleural effusions. Some of the increased interstitial markings could represent some chronic lung change. Significant left proximal humerus deformity. This was present previously. Correlation with clinical symptoms recommended. This may be further evaluation depending on clinical scenario. Electronically authenticated by: JULIO CESAR MUELLER Date: 10/11/2022 07:32
[2022-10-11] MEDS: FLUOXETINE HCL 20 MG CAPSULE 40 MG PO (08:19)
[2022-10-11] MEDS: MAGNESIUM OXIDE 400 MG TABLET PO ×2 (08:19→22:05)
[2022-10-11] MEDS: CALCIUM CARBONATE/VITAMIN D3 1 EACH TABLET 1 TAB PO ×2 (08:19→22:05)
[2022-10-11] MEDS: OMEPRAZOLE 40 MG CAPSULE.DR PO ×2 (08:19→22:05)
[2022-10-11] MEDS: ALPRAZOLAM 1 MG TABLET PO (08:19)
[2022-10-11] MEDS: METOPROLOL TARTRATE 50 MG TABLET PO ×2 (08:19→22:05)
[2022-10-11] MEDS: APIXABAN 5 MG TABLET PO ×2 (08:19→22:05)
--- NOTE | 2022-10-11 10:53 | PT.DAILY ---
Physical Therapy Daily Note PT Daily Note/Assess Start: 10/10/22 09:36 Freq: Status: Active Protocol: Document 10/11/22 10:35 NIK (Rec: 10/11/22 10:52 NIK [id number]) Physical Therapy Daily Note/Assessment Time In/Time Out Time In 10:35 Time Out 10:47 Pain In Pain N/A Pain Out Pain N/A Subjective Subjective Denies any complaints, reports just getting cleaned up and feeling better. Agrees to PT this morning. Therapeutic Exercise Time Therapeutic Exercise Minutes (minutes) 8 Therapeutic Exercise Units 1 Therapeutic Exercise Treatment Therapeutic Exercise Treatment Seated exercises B LE all planes 10-15x. Therapeutic Activity Time Therapeutic Activity Minutes (minutes) 4 Therapeutic Activity Units 0 Therapeutic Activity Treatment Chair Transfer Ability Standby Assistance Therapeutic Activity Comments Sit to stand and steps 5x with SC. Patient required SBA however with last 2 reps did required CGA/min assist due to fatigue and decreased balance janette. with initial standing. Gait is limited due to patient O2 tubing this morning. Total Physical Therapy Time Total Therapy Minutes 12 Total Physical Therapy Units 1 Summary Daily Note Summary Patient fatigues quickly with sit to stand and step exercise , requiring increased assistance after 3 reps. Patient is now on isolation precautions and due to this O2 tubing was limited (unable to take tank into room, will see if nursing can get longer tubing for next RX. ) PT will recommend SNF at [place] to build up strength for patient to be able to safely return to home environment to care for self.
[2022-10-11] MEDS: HYDROCHLOROTHIAZIDE 25 MG TABLET PO (12:24)
[2022-10-11] MEDS: BUMETANIDE 10 MG in 0.9 % SODIUM CHLORIDE 160 ML 20 MG IV (12:25)
--- NOTE | 2022-10-11 12:44 | PM.IMPN1 ---
Progress Note: A&P Assessment and Plan (1) Diabetes: Assessment and Plan: On Sliding scale insulin. FSBS reasonably at goal Qualifiers: Diabetes mellitus type: type 2 Diabetes mellitus nursing home insulin use: without nursing home use Diabetes mellitus complication status: with kidney complications Diabetes mellitus complication detail: with chronic kidney disease Chronic kidney disease stage: stage 3 (moderate) Chronic kidney disease stage 3 subtype: stage 3a (GFR 45-59) Qualified Code(s): E11.22 - Type 2 diabetes mellitus with diabetic chronic kidney disease; N18.31 - Chronic kidney disease, stage 3a (2) Acute kidney injury: Assessment and Plan: Likely cardiorenal and from volume overload. Needs IV diuresis and close monitoring of her renal function Cr improved from yesterday (3) CHF (congestive heart failure): Assessment and Plan: Volume overload on exam. Improved from yesterday. Negative 1500 ml. C/w bumex drip at 2 mg /hr and add HCTZ 25 daily Qualifiers: Heart failure chronicity: acute on chronic Heart failure type: diastolic Qualified Code(s): I50.33 - Acute on chronic diastolic (congestive) heart failure (4) Anemia: Assessment and Plan: Chronic. At baseline 8-9. Slighly low this am likely from repeated blood draws. Transfuse one unit. No overt signs of bleeding Qualifiers: Anemia type: due to chronic kidney disease Chronic kidney disease stage: stage 3 (moderate) Chronic kidney disease stage 3 subtype: stage 3b (GFR 30-44) Qualified Code(s): N18.32 - Chronic kidney disease, stage 3b; D63.1 - Anemia in chronic kidney disease (5) CKD (chronic kidney disease) stage 3, GFR 30-59 ml/min: Assessment and Plan: Baseline Cr is 1.5. Monitor UO and Cr closely while on diuretics. (6) Acute and chronic respiratory failure with hypoxia: Assessment and Plan: Back to baseline O2 Requirement. Uses 2 L O via NC (7) Atrial fibrillation: Assessment and Plan: On Lopressor for it. Uses Eliquis for stroke px. C/w same (8) Hypertension: Assessment and Plan: At goal. C/w Lopressor, Imdur. (9) Depression: Assessment and Plan: C/w prozac and rexulti. (10) Generalized weakness: Assessment and Plan: PT/OT evaluation. Lives at home. At baseline walks w/o assistance. (11) Obesity: Assessment and Plan: Would benefit from weight loss. Outpatient f/u (12) C. difficile diarrhea: Assessment and Plan: New onset. Started to have watery diarrhea yesterday, multiple bowel movement. Positive for C diff. Started on PO vancomycin. Denies nausea/vomiting, abdominal pain. Diarrhea improved. C/w PO vancomycin Plan C/w IV diuresis, closely monitor UO, renal function. Internal Medicine - PN: Subj Subjective Interval history: Seen and examined. Diarrhea resolved. Feeling better. She also reports her breathing status is better from yesterday Exam Constitutional Vital Signs - 24 hr 10/10/22 13:58 10/10/22 14:00 10/10/22 16:07 Temperature 98.5 F Pulse Rate 88 88 90 Respiratory Rate 18 Blood Pressure [Left Arm] 135/71 H Blood Pressure [Right Arm] Pulse Oximetry 93 L Oxygen Delivery Method Room Air Oxygen Delivery Flow Rate 10/10/22 18:11 10/10/22 19:43 10/10/22 20:00 Temperature Pulse Rate 87 86 Respiratory Rate Blood Pressure [Left Arm] Blood Pressure [Right Arm] Pulse Oximetry 93 L Oxygen Delivery Method Nasal Cannula Oxygen Delivery Flow Rate 3 10/10/22 21:12 10/10/22 22:00 10/11/22 00:00 Temperature 97.8 F Pulse Rate 90 67 81 Respiratory Rate 22 Blood Pressure [Left Arm] 153/80 H Blood Pressure [Right Arm] Pulse Oximetry 90 L Oxygen Delivery Method Nasal Cannula Oxygen Delivery Flow Rate 2 10/11/22 02:00 10/11/22 04:00 10/11/22 05:27 Temperature 97.6 F Pulse Rate 82 78 88 Respiratory Rate 16 Blood Pressure [Left Arm] Blood Pressure [Right Arm] 147/78 H Pulse Oximetry 91 L Oxygen Delivery Method Nasal Cannula Oxygen Delivery Flow Rate 10/11/22 06:00 10/11/22 07:55 10/11/22 10:11 Temperature Pulse Rate 83 66 79 Respiratory Rate Blood Pressure [Left Arm] Blood Pressure [Right Arm] Pulse Oximetry Oxygen Delivery Method Oxygen Delivery Flow Rate 10/11/22 11:37 10/11/22 11:51 Temperature Pulse Rate 75 Respiratory Rate Blood Pressure [Left Arm] Blood Pressure [Right Arm] Pulse Oximetry 95 Oxygen Delivery Method Nasal Cannula Oxygen Delivery Flow Rate 3 Documenting provider has reviewed patient's vital signs: yes Common normals: no apparent distress General appearance: cooperative and comfortable Nutritional appearance: obese Orientation/consciousness: Yes awake HENMT Common normals: normocephalic and head/scalp atraumatic Eye Common normals: conjunctivae normal and no scleral icterus Neck & C-Spine General: other (short thick neck) Respiratory Common normals: normal respiratory effort and no use of accessory muscles Effort & inspection: able to speak in complete sentences Auscultation: crackles Laterality: bilateral Cardio Common normals: regular rate, regular rhythm, S1 normal heart sound and S2 normal heart sound Back & Pelvis General back: other (kyphoscoliosis of spine) Extremity General: edema (+1) Neuro Common normals: oriented x3, moves all extremities, no focal motor deficits and no sensory deficits noted Psych Common normals: mental status grossly normal, cooperative, denies homicidal ideation and denies suicidal ideation Internal Medicine - PN: Obj Da Labs Labs: Laboratory Results - last 24 hr 10/10/22 10/10/22 10/11/22 13:10 13:45 04:00 WBC 7.1 RBC 2.65 L Hgb 7.6 L Hct 26.2 L MCV 98.9 MCH 28.7 MCHC 29.0 L RDW 14.5 Plt Count 180 MPV 9.9 Neut % (Auto) 73.6 Lymph % (Auto) 18.8 L [place] % (Auto) 5.1 Eos % (Auto) 1.7 Baso % (Auto) 0.4 Neut # (Auto) 5.2 Lymph # (Auto) 1.3 [place] # (Auto) 0.4 Eos # (Auto) 0.1 Baso # (Auto) 0.0 Abs Immat Gran (auto) 0.03 Imm/Tot Granulo (auto) 0.4 Sodium 138 140 Potassium 5.1 4.8 Chloride 108 H 100 Carbon Dioxide 34.0 H 40.4 H Anion Gap 1.1 4.4 BUN 36.0 H 33.0 H Creatinine 1.88 H 1.76 H Est GFR ( Amer) 32 L 34 L Est GFR (Non-Af Amer) 26 L 28 L BUN/Creatinine Ratio 19.1 18.8 Glucose 122 H 145 H Calcium 7.8 L 8.1 L Total Bilirubin 0.3 AST 15 ALT 14 Alkaline Phosphatase 64 NT-Pro-B Natriuret Pep >75469.0 H* Total Protein 6.3 L Albumin 2.2 L Globulin 4.1 Albumin/Globulin Ratio 0.5 Stl C. cayetanensis PCR Not detected Stool Rotavirus (PCR) Not detected Stool Adenovirus (PCR) Not detected Stool Astrovirus (PCR) Not detected Stool Campylobacter PCR Not detected Stool Cryptosporidium PCR Not detected St Sh/Enteroin Ecoli PCR Not detected Stool E.coli 0157 Cult Not detected Stl Enterotoxigenic E PCR Not detected Stool EPEC (PCR) Not detected Stl E. histolytica PCR Not detected Stool Giardia Lamblia PCR Not detected Stl P. shigelloides PCR Not detected Stool Salmonella PCR Not detected Stool Sapovirus (PCR) Not detected Stl Shiga-like Tx [address].enterocolitica PCR Not detected Stl Vibrio cholerae PCR Not detected Stl Enteroaggr Ecoli PCR Not detected Stl Norovirus GI/GII PCR Not detected C. difficile Toxin A&B Detected A* Vibrio Culture Not detected Blood Type Antibody Screen Crossmatch 10/11/22 08:57 WBC RBC Hgb Hct MCV MCH MCHC RDW Plt Count MPV Neut % (Auto) Lymph % (Auto) [place] % (Auto) Eos % (Auto) Baso % (Auto) Neut # (Auto) Lymph # (Auto) [place] # (Auto) Eos # (Auto) Baso # (Auto) Abs Immat Gran (auto) Imm/Tot Granulo (auto) Sodium Potassium Chloride Carbon Dioxide Anion Gap BUN Creatinine Est GFR ( Amer) Est GFR (Non-Af Amer) BUN/Creatinine Ratio Glucose Calcium Total Bilirubin AST ALT Alkaline Phosphatase NT-Pro-B Natriuret Pep Total Protein Albumin Globulin Albumin/Globulin Ratio Stl C. cayetanensis PCR Stool Rotavirus (PCR) Stool Adenovirus (PCR) Stool Astrovirus (PCR) Stool Campylobacter PCR Stool Cryptosporidium PCR St Sh/Enteroin Ecoli PCR Stool E.coli 0157 Cult Stl Enterotoxigenic E PCR Stool EPEC (PCR) Stl E. histolytica PCR Stool Giardia Lamblia PCR Stl P. shigelloides PCR Stool Salmonella PCR Stool Sapovirus (PCR) Stl Shiga-like Tx [address] Y[address]enterocolitica PCR Stl Vibrio cholerae PCR Stl Enteroaggr Ecoli PCR Stl Norovirus GI/GII PCR C. difficile Toxin A&B Vibrio Culture Blood Type O Positive Antibody Screen Negative Crossmatch See Detail Urinary Catheter Management Urinary Catheter Management Straight: Cath placed during this visit: yes Urethral indwelling: No Insertion date: 10/09/22 Insertion time: 09:00
[2022-10-11] MEDS: 0.9 % SODIUM CHLORIDE 250 ML 50 ML IV (15:03)
[2022-10-11 21:18] LABS: Glucometer 132 mg/dL (74-106)
[2022-10-12] VITALS (17 sets, daily range): BP systolic 152–162; BP diastolic 67–78; PULSE 57–88; RESP 16–20; TEMP 36.8–36.9; O2SAT 91–96
[2022-10-12 05:08] LABS: Basophils Percent Auto 0.3 % (0.2-2.0); Eosinophils Absolute Auto 0.2 10^3/uL (0.0-0.7); Eosinophils Percent Auto 3.4 % (0.9-7.0); Hemoglobin 8.5 g/dL (12.0-16.0); Immature Granulocytes Abs Auto 0.04 10^3/uL (0.00-0.03); Immature Granulocytes Pct Auto 0.6 % (0.0-0.5); Lymphocytes Absolute Auto 1.5 10^3/uL (1.2-3.8); Lymphocytes Percent Auto 20.3 % (20.5-60.0); Mean Corpuscular HGB Conc 30.4 g/dL (29.9-35.2); Mean Corpuscular Hemoglobin 28.9 pg (26.7-34.0); Mean Corpuscular Volume 95.2 fL (81.0-99.0); Mean Platelet Volume 9.6 fL (9.5-13.5); Monocytes Absolute Auto 0.5 10^3/uL (0.3-0.8); Monocytes Percent Auto 6.6 % (1.7-12.0); Neutrophils Absolute Auto 4.9 10^3/uL (1.4-6.5); Neutrophils Percent Auto 68.8 % (43.0-75.0); Platelet Count 177 10^3/uL (150-450); Red Blood Count 2.94 10^6/uL (4.20-5.40); Red Cell Distribution Width 14.7 % (11.0-15.0); White Blood Count 7.1 10^3/uL (4.0-11.0)
[2022-10-12 05:31] LABS: Alanine Aminotransferase 13 U/L (14-59); Albumin Globulin Ratio 0.5; Albumin Level 2.2 g/dL (3.4-5.0); Alkaline Phosphatase 60 U/L (46-116); Anion Gap 5.1; Aspartate Amino Transferase 13 U/L (15-37); BUN Creatinine Ratio 20.3; Bilirubin Total 0.5 mg/dL (0.2-1.0); Carbon Dioxide 42.5 mmol/L (21.0-32.0); Chloride 97 mmol/L (98-107); Estimated GFR (African America 39 (>=60); Estimated GFR (Non-African Ame 32 (>=60); Globulin 4.1 g/dL; Glucose 119 mg/dL (74-106); Potassium 4.6 mmol/L (3.5-5.1); Sodium 140 mmol/L (136-145); Total Protein 6.3 g/dL (6.4-8.2)
[2022-10-12] MEDS: VANCOMYCIN HCL 50 MG/ML SOLN.RECON 250 MG PO ×3 (06:32→21:39)
[2022-10-12] MEDS: ISOSORBIDE MONONITRATE 30 MG TAB.ER.24H PO (06:32)
[2022-10-12] MEDS: MAGNESIUM OXIDE 400 MG TABLET PO ×2 (08:49→21:39)
[2022-10-12] MEDS: CALCIUM CARBONATE/VITAMIN D3 1 EACH TABLET 1 TAB PO ×2 (08:50→21:39)
[2022-10-12] MEDS: APIXABAN 5 MG TABLET PO ×2 (08:50→21:39)
[2022-10-12] MEDS: OMEPRAZOLE 40 MG CAPSULE.DR PO ×2 (08:50→21:39)
[2022-10-12] MEDS: FLUOXETINE HCL 20 MG CAPSULE 40 MG PO (08:50)
[2022-10-12] MEDS: METOPROLOL TARTRATE 50 MG TABLET PO ×2 (08:50→21:38)
[2022-10-12] MEDS: ALPRAZOLAM 1 MG TABLET PO ×2 (08:55→19:34)
--- NOTE | 2022-10-12 10:07 | SWNOTE1 ---
SW sent updates to [employer].
--- NOTE | 2022-10-12 10:10 | REH.PTDLY ---
Physical Therapy Daily Note PT Daily Note/Assess Start: 10/10/22 09:36 Freq: Status: Active Protocol: Document 10/12/22 10:00 FERNANDO (Rec[facility]12[facility]22 10[id number] Physical Therapy Daily Note/Assessment Time In 09:32 Time Out 09:45 Pain Level 0 Pain Level 0 Subjective No complaints, just waiting to see if I'm going to the [facility] or going home. Cdiff positive. Therapeutic Exercise Minutes (minutes) 4 Therapeutic Exercise Units 0 Therapeutic Exercise Treatment Instructed in B LE seated exs 10x ea for improved strength, exs included LAQ, hip abd, AP, marching. Minimal fatigue with exs and cues to perform at slower pace. Therapeutic Activity Minutes (minutes) 8 Therapeutic Activity Units 1 Bed Mobility Ability Standby Assistance Chair Transfer Ability Standby Assistance Therapeutic Activity Comments Pt uses bed rails to get out of bed. Sit to stand transfers SBA. Gait training with SC 55 feet CGA with O2 on with pt also grabbing onto furniture along the way, pt pauses twice during gait for break. Promoted use of RW if feeling unsteady. Pt uses O2 at home. Total Therapy Minutes 12 Total Physical Therapy Units 1 Daily Note Summary Progressed gait distance today for improved mobility with fatigue noted and needing CGA for safety as pt is unsteady at times. Fatigue with LE exs. Pt would benefit from rehab stay to gain strength for safety prior to return home.
[2022-10-12] MEDS: BUMETANIDE 10 MG in 0.9 % SODIUM CHLORIDE 160 ML 20 MG IV (11:16)
--- NOTE | 2022-10-12 11:55 | PM.IMPN1 ---
Progress Note: A&P Assessment and Plan (1) Diabetes: Assessment and Plan: On Sliding scale insulin. FSBS reasonably at goal Qualifiers: Diabetes mellitus type: type 2 Diabetes mellitus [facility] insulin use: without [facility] use Diabetes mellitus complication status: with kidney complications Diabetes mellitus complication detail: with chronic kidney disease Chronic kidney disease stage: stage 3 (moderate) Chronic kidney disease stage 3 subtype: stage 3a (GFR 45-59) Qualified Code(s): E11.22 - Type 2 diabetes mellitus with diabetic chronic kidney disease; N18.31 - Chronic kidney disease, stage 3a (2) Acute kidney injury: Assessment and Plan: Likely cardiorenal and from volume overload. Needs IV diuresis and close monitoring of her renal function Cr continues to improve (3) CHF (congestive heart failure): Assessment and Plan: Still volume overload on exam. Slowly improving. Responding to Bumex drip. C/w same. I/O strict, daily weights, fluid restiction Qualifiers: Heart failure chronicity: acute on chronic Heart failure type: diastolic Qualified Code(s): I50.33 - Acute on chronic diastolic (congestive) heart failure (4) Anemia: Assessment and Plan: Chronic. At baseline 8-9. Needed one unIt PRBC 10/11/22. No overt bleeding Qualifiers: Anemia type: due to chronic kidney disease Chronic kidney disease stage: stage 3 (moderate) Chronic kidney disease stage 3 subtype: stage 3b (GFR 30-44) Qualified Code(s): N18.32 - Chronic kidney disease, stage 3b; D63.1 - Anemia in chronic kidney disease (5) CKD (chronic kidney disease) stage 3, GFR 30-59 ml/min: Assessment and Plan: Baseline Cr is 1.5. Monitor UO and Cr closely while on diuretics. (6) Acute and chronic respiratory failure with hypoxia: Assessment and Plan: Back to baseline O2 Requirement. Uses 2 L O via NC (7) Atrial fibrillation: Assessment and Plan: On Lopressor for it. Uses Eliquis for stroke px. C/w same (8) Hypertension: Assessment and Plan: At goal. C/w Lopressor, Imdur. (9) Depression: Assessment and Plan: C/w prozac and rexulti. (10) Generalized weakness: Assessment and Plan: PT/OT evaluation. Lives at home. At baseline walks w/o assistance. Will need rehab after medically ready for discharge (11) Obesity: Assessment and Plan: Would benefit from weight loss. Outpatient f/u (12) C. difficile diarrhea: Assessment and Plan: New onset. Started to have watery diarrhea 10/10, multiple bowel movement. Positive for C diff. Started on PO vancomycin. Denies nausea/vomiting, abdominal pain. Diarrhea resolved. C/w PO vancomycin Plan C/w IV diuresis, closely monitor UO, renal function. Internal Medicine - PN: Subj Subjective Interval history: Seen and examined. Diarrhea resolved. Feeling better. Good UO on bumex Exam Constitutional Vital Signs - 24 hr 10/11/22 13:48 10/11/22 14:45 10/11/22 15:01 Temperature 98.4 F 98.2 F Pulse Rate 63 64 73 Respiratory Rate 16 16 Blood Pressure 151/75 H 149/68 H Blood Pressure [Left Arm] Blood Pressure [Right Arm] Pulse Oximetry 90 L Oxygen Delivery Method Nasal Cannula Oxygen Delivery Flow Rate 2 10/11/22 15:54 10/11/22 16:01 10/11/22 17:01 Temperature 98.3 F 98.3 F Pulse Rate 62 83 65 Respiratory Rate 16 18 Blood Pressure 170/83 H 157/78 H Blood Pressure [Left Arm] Blood Pressure [Right Arm] Pulse Oximetry Oxygen Delivery Method Oxygen Delivery Flow Rate 10/11/22 17:45 10/11/22 18:47 10/11/22 19:00 Temperature 98.4 F Pulse Rate 72 65 Respiratory Rate 16 18 Blood Pressure 145/73 H Blood Pressure [Left Arm] Blood Pressure [Right Arm] Pulse Oximetry 90 L Oxygen Delivery Method Nasal Cannula Oxygen Delivery Flow Rate 3 10/11/22 19:36 10/11/22 20:00 10/11/22 19:57 Temperature Pulse Rate 65 69 Respiratory Rate Blood Pressure Blood Pressure [Left Arm] Blood Pressure [Right Arm] Pulse Oximetry 95 Oxygen Delivery Method Nasal Cannula Oxygen Delivery Flow Rate 3 10/11/22 21:11 10/11/22 22:00 10/12/22 00:00 Temperature 97.6 F Pulse Rate 82 70 69 Respiratory Rate 18 Blood Pressure Blood Pressure [Left Arm] Blood Pressure [Right Arm] 172/81 H Pulse Oximetry 92 L Oxygen Delivery Method Oxygen Delivery Flow Rate 10/12/22 02:00 10/12/22 03:49 10/12/22 04:18 Temperature 98.4 F Pulse Rate 63 57 L 62 Respiratory Rate 16 Blood Pressure Blood Pressure [Left Arm] 154/78 H Blood Pressure [Right Arm] Pulse Oximetry 92 L Oxygen Delivery Method Room Air Oxygen Delivery Flow Rate 10/12/22 05:48 10/12/22 07:52 10/12/22 09:58 Temperature Pulse Rate 71 62 65 Respiratory Rate Blood Pressure Blood Pressure [Left Arm] Blood Pressure [Right Arm] Pulse Oximetry Oxygen Delivery Method Oxygen Delivery Flow Rate 10/12/22 10:36 10/12/22 11:52 Temperature Pulse Rate 60 Respiratory Rate Blood Pressure Blood Pressure [Left Arm] Blood Pressure [Right Arm] Pulse Oximetry 91 L Oxygen Delivery Method Nasal Cannula Oxygen Delivery Flow Rate 3 Documenting provider has reviewed patient's vital signs: yes Common normals: no apparent distress General appearance: cooperative and comfortable Nutritional appearance: obese Orientation/consciousness: Yes awake HENMT Common normals: normocephalic and head/scalp atraumatic Eye Common normals: conjunctivae normal and no scleral icterus Neck & C-Spine General: other (short thick neck) Respiratory Common normals: normal respiratory effort and no use of accessory muscles Effort & inspection: able to speak in complete sentences Auscultation: crackles Laterality: bilateral Cardio Common normals: regular rate, regular rhythm, S1 normal heart sound and S2 normal heart sound Back & Pelvis General back: other (kyphoscoliosis of spine) Extremity General: edema (+1) Neuro Common normals: oriented x3, moves all extremities, no focal motor deficits and no sensory deficits noted Psych Common normals: mental status grossly normal, cooperative, denies homicidal ideation and denies suicidal ideation Internal Medicine - PN: Obj Da Labs Labs: Laboratory Results - last 24 hr 10/11/22 10/11/22 10/12/22 08:57 21:07 04:30 WBC 7.1 RBC 2.94 L Hgb 8.5 L Hct 28.0 L MCV 95.2 MCH 28.9 MCHC 30.4 RDW 14.7 Plt Count 177 MPV 9.6 Neut % (Auto) 68.8 Lymph % (Auto) 20.3 L Bee % (Auto) 6.6 Eos % (Auto) 3.4 Baso % (Auto) 0.3 Neut # (Auto) 4.9 Lymph # (Auto) 1.5 Bee # (Auto) 0.5 Eos # (Auto) 0.2 Baso # (Auto) 0.0 Abs Immat Gran (auto) 0.04 H Imm/Tot Granulo (auto) 0.6 H Sodium 140 Potassium 4.6 Chloride 97 L Carbon Dioxide 42.5 H Anion Gap 5.1 BUN 32.0 H Creatinine 1.58 H Est GFR ( Amer) 39 L Est GFR (Non-Af Amer) 32 L BUN/Creatinine Ratio 20.3 Glucose 119 H Calcium 9.0 Total Bilirubin 0.5 AST 13 L ALT 13 L Alkaline Phosphatase 60 NT-Pro-B Natriuret Pep 80702.0 H* Total Protein 6.3 L Albumin 2.2 L Globulin 4.1 Albumin/Globulin Ratio 0.5 POC Glucose 132 H Blood Type O Positive Antibody Screen Negative Crossmatch See Detail Urinary Catheter Management Urinary Catheter Management Straight: Cath placed during this visit: yes Urethral indwelling: No Reason for continuing: measure accurate output Insertion date: 10/09/22 Insertion time: 09:00
--- NOTE | 2022-10-12 12:04 | CM.NOTE ---
Rounds made with Dr. Moran. Dr. Moran to order Fluid Restrictions. Explained to Kate. Verbalizes understanding. No plan for discharge today.
[2022-10-12 13:15] LABS: Glucometer 149 mg/dL (74-106)
[2022-10-12] MEDS: HYDROCHLOROTHIAZIDE 25 MG TABLET PO (13:16)
[2022-10-12 14:31] LABS: SARS-CoV-2 Ag Negative (NEGATIVE)
--- NOTE | 2022-10-12 15:54 | PC.NURSE ---
Watch Assembly Inspector at bedside. Stated a new order for an echo will be put in place for 10-14-11
[2022-10-12] MEDS: ACETAMINOPHEN 325 MG TABLET 650 MG PO (19:34)
[2022-10-12] MEDS: ALBUTEROL SULFATE 2.5 MG/3 ML VIAL NEB CNTNEBULIZ (19:56)
[2022-10-12 20:55] LABS: Glucometer 183 mg/dL (74-106)
[2022-10-12] MEDS: INSULIN ASPART 300 UNIT/3 ML PEN SUBQ (21:41)
[2022-10-13] VITALS (16 sets, daily range): BP systolic 152–157; BP diastolic 70–75; PULSE 59–83; RESP 16–20; TEMP 36.6–36.7; O2SAT 91–96
[2022-10-13 05:14] LABS: Basophils Percent Auto 0.3 % (0.2-2.0); Eosinophils Absolute Auto 0.2 10^3/uL (0.0-0.7); Eosinophils Percent Auto 3.7 % (0.9-7.0); Hematocrit 28.8 % (36.0-48.0); Immature Granulocytes Abs Auto 0.01 10^3/uL (0.00-0.03); Immature Granulocytes Pct Auto 0.2 % (0.0-0.5); Lymphocytes Absolute Auto 1.5 10^3/uL (1.2-3.8); Lymphocytes Percent Auto 24.3 % (20.5-60.0); Mean Corpuscular HGB Conc 31.3 g/dL (29.9-35.2); Mean Corpuscular Hemoglobin 29.4 pg (26.7-34.0); Mean Corpuscular Volume 94.1 fL (81.0-99.0); Mean Platelet Volume 9.8 fL (9.5-13.5); Monocytes Absolute Auto 0.5 10^3/uL (0.3-0.8); Monocytes Percent Auto 8.1 % (1.7-12.0); Neutrophils Absolute Auto 3.8 10^3/uL (1.4-6.5); Neutrophils Percent Auto 63.4 % (43.0-75.0); Platelet Count 166 10^3/uL (150-450); Red Blood Count 3.06 10^6/uL (4.20-5.40); Red Cell Distribution Width 14.4 % (11.0-15.0)
[2022-10-13 05:38] LABS: Anion Gap 3.4
[2022-10-13 05:46] LABS: Alanine Aminotransferase 13 U/L (14-59); Albumin Globulin Ratio 0.5; Albumin Level 2.2 g/dL (3.4-5.0); Alkaline Phosphatase 60 U/L (46-116); Aspartate Amino Transferase 30 U/L (15-37); BUN Creatinine Ratio 24.4; Bilirubin Total 0.5 mg/dL (0.2-1.0); Calcium 9.4 mg/dL (8.5-10.1); Carbon Dioxide 46.7 mmol/L (21.0-32.0); Chloride 93 mmol/L (98-107); Estimated GFR (African America 37 (>=60); Estimated GFR (Non-African Ame 31 (>=60); Globulin 4.2 g/dL; Glucose 105 mg/dL (74-106); Potassium 4.1 mmol/L (3.5-5.1); Sodium 139 mmol/L (136-145); Total Protein 6.4 g/dL (6.4-8.2)
[2022-10-13] MEDS: ISOSORBIDE MONONITRATE 30 MG TAB.ER.24H PO (06:16)
[2022-10-13] MEDS: VANCOMYCIN HCL 50 MG/ML SOLN.RECON 250 MG PO ×4 (06:16→21:03)
--- NOTE | 2022-10-13 07:51 | XR_ITS ---
[address] [address] Patient Name: MARTIN HAGEN MRN: [id number] date: 1950 Sex: F Assigned Patient Location: [place] Current Patient Location: [place] Accession/Order Number: [id number] Exam Date: 10/13/2022 09:10 Report Date: 10/13/2022 09:27 At the request of: SHAIKH MARGARITA Procedure: XR chest 1V EXAM: XR chest 1V HISTORY: SOB COMPARISON: None. TECHNIQUE: AP view of the chest. Findings/impression: Cardiomegaly with congestion. Bibasilar airspace disease. Trace bilateral pleural effusions. No pneumothorax. Fracture deformity of the left proximal humerus. Electronically authenticated by: CANDACE GRAY Date: 10/13/2022 09:27
[2022-10-13] MEDS: FLUOXETINE HCL 20 MG CAPSULE 40 MG PO (09:38)
[2022-10-13] MEDS: METOPROLOL TARTRATE 50 MG TABLET PO ×2 (09:38→21:03)
[2022-10-13] MEDS: CALCIUM CARBONATE/VITAMIN D3 1 EACH TABLET 1 TAB PO ×2 (09:38→21:03)
[2022-10-13] MEDS: APIXABAN 5 MG TABLET PO ×2 (09:38→21:03)
[2022-10-13] MEDS: MAGNESIUM OXIDE 400 MG TABLET PO ×2 (09:38→21:03)
[2022-10-13] MEDS: OMEPRAZOLE 40 MG CAPSULE.DR PO ×2 (09:38→21:03)
--- NOTE | 2022-10-13 10:55 | REH.PTDLY ---
Physical Therapy Daily Note PT Daily Note/Assess Start: 10/10/22 09:36 Freq: Status: Active Protocol: Document 10/13/22 09:49 FERNANDO (Rec: 10/13/22 10:55 FERNANDO Laptop) Physical Therapy Daily Note/Assessment Time In 09:30 Time Out 09:44 Pain Level 0 Pain Level 0 Subjective No new complaints, just waiting to see if she will go to [facility] today for skilled. Pt sitting up in chair. Therapeutic Exercise Minutes (minutes) 6 Therapeutic Exercise Units 0 Therapeutic Exercise Treatment Instructed in B LE seated exs 10x ea with exs including AP, LAQ, marching, hip abd, hip add for improved strength for ease of functional mobility Therapeutic Activity Minutes (minutes) 8 Therapeutic Activity Units 1 Chair Transfer Ability Contact Guard Assist Therapeutic Activity Comments Sit to stand transfers from chair with cues to push off from chair arms, CGA for safety. Gait training with SC and O2 24 feet x2 with cues to slow down for safety. Pt requires SBA with toilet transfers for safety, pt using grab bar on wall. SBA with dynamic standing while pt washes hands at sink. Fatigue noted afterwards. Total Therapy Minutes 14 Total Physical Therapy Units 1 Daily Note Summary Pt fatigued post rx with no complaints of increased pain. Pt able to ambulate short distances with SC and O2. Would benefit from SNF stay at [facility] to gain more strength for safety at home.
--- NOTE | 2022-10-13 12:25 | CM.NOTE ---
Rounds made with Dr. Moran, no discharge today. Pt will go to the [facility] for skilled therapy at discharge.
[2022-10-13] MEDS: BUMETANIDE 1 MG/4 ML VIAL 2 MG IVP ×2 (12:32→23:14)
[2022-10-13] MEDS: HYDROCHLOROTHIAZIDE 25 MG TABLET PO (12:33)
--- NOTE | 2022-10-13 13:55 | P.IMPN_ITS ---
Progress Note: A&P Assessment and Plan (1) Diabetes: Assessment and Plan: On Sliding scale insulin. FSBS reasonably at goal Qualifiers: Diabetes mellitus type: type 2 Diabetes mellitus [facility] insulin use: without [facility] use Diabetes mellitus complication status: with kidney complications Diabetes mellitus complication detail: with chronic kidney disease Chronic kidney disease stage: stage 3 (moderate) Chronic kidney disease stage 3 subtype: stage 3a (GFR 45-59) Qualified Code(s): E11.22 - Type 2 diabetes mellitus with diabetic chronic kidney disease; N18.31 - Chronic kidney disease, stage 3a (2) Acute kidney injury: Assessment and Plan: Likely cardiorenal and from volume overload. Rersolved now. (3) CHF (congestive heart failure): Assessment and Plan: Still volume overload on exam. Slowly improving. Switch to IV bumex 2 q12 Qualifiers: Heart failure chronicity: acute on chronic Heart failure type: diastolic Qualified Code(s): I50.33 - Acute on chronic diastolic (congestive) heart failure (4) Anemia: Assessment and Plan: Chronic. At baseline 8-9. Needed one unIt PRBC 10/11/22. No overt bleeding Qualifiers: Anemia type: due to chronic kidney disease Chronic kidney disease stage: stage 3 (moderate) Chronic kidney disease stage 3 subtype: stage 3b (GFR 30-44) Qualified Code(s): N18.32 - Chronic kidney disease, stage 3b; D63.1 - Anemia in chronic kidney disease (5) CKD (chronic kidney disease) stage 3, GFR 30-59 ml/min: Assessment and Plan: Baseline Cr is 1.5. Monitor UO and Cr closely while on diuretics. (6) Acute and chronic respiratory failure with hypoxia: Assessment and Plan: Back to baseline O2 Requirement. Uses 2 L O via NC (7) Atrial fibrillation: Assessment and Plan: On Lopressor for it. Uses Eliquis for stroke px. C/w same (8) Hypertension: Assessment and Plan: At goal. C/w Lopressor, Imdur. (9) Depression: Assessment and Plan: C/w prozac and rexulti. (10) Generalized weakness: Assessment and Plan: PT/OT evaluation. Lives at home. At baseline walks w/o assistance. Will need rehab after medically ready for discharge (11) Obesity: Assessment and Plan: Would benefit from weight loss. Outpatient f/u (12) C. difficile diarrhea: Assessment and Plan: New onset. Started to have watery diarrhea 10/10. Positive for C diff. on PO vancomycin. Denies nausea/vomiting, abdominal pain. Diarrhea resolved. C/w PO vancomycin Internal Medicine - PN: Subj Subjective Interval history: Seen and examined. Continues to improve. Good UO on bumex drip. Exam Constitutional Vital Signs - 24 hr 10/12/22 14:00 10/12/22 14:00 10/12/22 16:00 Temperature Pulse Rate 66 64 76 Respiratory Rate 16 Blood Pressure [Left Arm] 152/76 H Blood Pressure [Right Arm] Pulse Oximetry 92 L Oxygen Delivery Method Room Air Oxygen Delivery Flow Rate 10/12/22 18:00 10/12/22 19:56 10/12/22 19:56 Temperature Pulse Rate 65 71 Respiratory Rate 18 Blood Pressure [Left Arm] Blood Pressure [Right Arm] Pulse Oximetry 93 L 93 L Oxygen Delivery Method Nasal Cannula Oxygen Delivery Flow Rate 3 10/12/22 20:06 10/12/22 20:08 10/12/22 22:03 Temperature Pulse Rate 76 76 83 Respiratory Rate 20 Blood Pressure [Left Arm] Blood Pressure [Right Arm] Pulse Oximetry 96 Oxygen Delivery Method Oxygen Delivery Flow Rate 10/12/22 22:35 10/13/22 00:03 10/13/22 02:02 Temperature 98.2 F Pulse Rate 88 63 62 Respiratory Rate 16 Blood Pressure [Left Arm] Blood Pressure [Right Arm] 162/67 H Pulse Oximetry 91 L Oxygen Delivery Method Nasal Cannula Oxygen Delivery Flow Rate 10/13/22 04:01 10/13/22 04:29 10/13/22 06:04 Temperature Pulse Rate 59 L 64 Respiratory Rate Blood Pressure [Left Arm] Blood Pressure [Right Arm] Pulse Oximetry 91 L Oxygen Delivery Method Nasal Cannula Oxygen Delivery Flow Rate 3 10/13/22 06:45 10/13/22 08:12 10/13/22 10:08 Temperature 97.8 F Pulse Rate 61 68 77 Respiratory Rate 16 Blood Pressure [Left Arm] 152/71 H Blood Pressure [Right Arm] Pulse Oximetry 96 Oxygen Delivery Method Oxygen Delivery Flow Rate 3 10/13/22 12:04 10/13/22 13:27 Temperature 98 F Pulse Rate 66 71 Respiratory Rate 20 Blood Pressure [Left Arm] 155/70 H Blood Pressure [Right Arm] Pulse Oximetry 94 L Oxygen Delivery Method Nasal Cannula Oxygen Delivery Flow Rate Documenting provider has reviewed patient's vital signs: yes Common normals: no apparent distress General appearance: cooperative and comfortable Nutritional appearance: obese Orientation/consciousness: Yes awake HENMT Common normals: normocephalic and head/scalp atraumatic Eye Common normals: conjunctivae normal and no scleral icterus Neck & C-Spine General: other (short thick neck) Respiratory Common normals: normal respiratory effort and no use of accessory muscles Effort & inspection: able to speak in complete sentences Auscultation: crackles Laterality: bilateral Cardio Common normals: regular rate, regular rhythm, S1 normal heart sound and S2 normal heart sound Back & Pelvis General back: other (kyphoscoliosis of spine) Extremity General: edema (+1) Neuro Common normals: oriented x3, moves all extremities, no focal motor deficits and no sensory deficits noted Psych Common normals: mental status grossly normal, cooperative, denies homicidal ideation and denies suicidal ideation Internal Medicine - PN: Obj Da Labs Labs: Laboratory Results - last 24 hr 10/12/22 10/12/22 10/13/22 13:59 20:33 04:07 WBC 6.0 RBC 3.06 L Hgb 9.0 L Hct 28.8 L MCV 94.1 MCH 29.4 MCHC 31.3 RDW 14.4 Plt Count 166 MPV 9.8 Neut % (Auto) 63.4 Lymph % (Auto) 24.3 Nicholas % (Auto) 8.1 Eos % (Auto) 3.7 Baso % (Auto) 0.3 Neut # (Auto) 3.8 Lymph # (Auto) 1.5 Nicholas # (Auto) 0.5 Eos # (Auto) 0.2 Baso # (Auto) 0.0 Abs Immat Gran (auto) 0.01 Imm/Tot Granulo (auto) 0.2 Sodium 139 Potassium 4.1 Chloride 93 L Carbon Dioxide 46.7 H Anion Gap 3.4 BUN 40.0 H Creatinine 1.64 H Est GFR ( Amer) 37 L Est GFR (Non-Af Amer) 31 L BUN/Creatinine Ratio 24.4 Glucose 105 Calcium 9.4 Total Bilirubin 0.5 AST 30 ALT 13 L Alkaline Phosphatase 60 NT-Pro-B Natriuret Pep 63822.0 H* Total Protein 6.4 Albumin 2.2 L Globulin 4.2 Albumin/Globulin Ratio 0.5 SARS-CoV-2 (PCR) Negative POC Glucose 183 H Urinary Catheter Management Urinary Catheter Management Straight: Cath placed during this visit: yes Urethral indwelling: No Reason for continuing: measure accurate output Insertion date: 10/09/22 Insertion time: 09:00
[2022-10-13 15:55] LABS: SARS-CoV-2 NAA INVALID (NOT DETECTE)
[2022-10-13] MEDS: INSULIN ASPART 300 UNIT/3 ML PEN SUBQ (16:32)
[2022-10-13] MEDS: ALPRAZOLAM 1 MG TABLET PO (21:03)
[2022-10-14] VITALS (10 sets, daily range): BP systolic 149; BP diastolic 76; PULSE 64–80; RESP 20; TEMP 36.7; O2SAT 93–95
[2022-10-14 05:33] LABS: Basophils Percent Auto 0.5 % (0.2-2.0); Eosinophils Absolute Auto 0.3 10^3/uL (0.0-0.7); Eosinophils Percent Auto 4.4 % (0.9-7.0); Hematocrit 29.4 % (36.0-48.0); Immature Granulocytes Abs Auto 0.02 10^3/uL (0.00-0.03); Immature Granulocytes Pct Auto 0.3 % (0.0-0.5); Lymphocytes Absolute Auto 1.5 10^3/uL (1.2-3.8); Lymphocytes Percent Auto 24.7 % (20.5-60.0); Mean Corpuscular HGB Conc 30.6 g/dL (29.9-35.2); Mean Corpuscular Hemoglobin 29.2 pg (26.7-34.0); Mean Corpuscular Volume 95.5 fL (81.0-99.0); Mean Platelet Volume 9.7 fL (9.5-13.5); Monocytes Absolute Auto 0.5 10^3/uL (0.3-0.8); Monocytes Percent Auto 8.6 % (1.7-12.0); Neutrophils Absolute Auto 3.7 10^3/uL (1.4-6.5); Neutrophils Percent Auto 61.5 % (43.0-75.0); Platelet Count 170 10^3/uL (150-450); Red Blood Count 3.08 10^6/uL (4.20-5.40); Red Cell Distribution Width 14.1 % (11.0-15.0); White Blood Count 6.1 10^3/uL (4.0-11.0)
[2022-10-14] MEDS: ISOSORBIDE MONONITRATE 30 MG TAB.ER.24H PO (05:48)
[2022-10-14] MEDS: VANCOMYCIN HCL 50 MG/ML SOLN.RECON 250 MG PO ×2 (05:48→11:20)
[2022-10-14 06:11] LABS: Alanine Aminotransferase 14 U/L (14-59); Albumin Globulin Ratio 0.6; Albumin Level 2.2 g/dL (3.4-5.0); Alkaline Phosphatase 60 U/L (46-116); Anion Gap 6.2; Aspartate Amino Transferase 17 U/L (15-37); BUN Creatinine Ratio 26.6; Bilirubin Total 0.4 mg/dL (0.2-1.0); Carbon Dioxide 47.4 mmol/L (21.0-32.0); Chloride 91 mmol/L (98-107); Estimated GFR (African America 40 (>=60); Estimated GFR (Non-African Ame 33 (>=60); Glucose 110 mg/dL (74-106); Potassium 3.6 mmol/L (3.5-5.1); Sodium 141 mmol/L (136-145); Total Protein 6.2 g/dL (6.4-8.2)
[2022-10-14] MEDS: APIXABAN 5 MG TABLET PO (08:40)
[2022-10-14] MEDS: FLUOXETINE HCL 20 MG CAPSULE 40 MG PO (08:40)
[2022-10-14] MEDS: METOPROLOL TARTRATE 50 MG TABLET PO (08:40)
[2022-10-14] MEDS: MAGNESIUM OXIDE 400 MG TABLET PO (08:40)
[2022-10-14] MEDS: CALCIUM CARBONATE/VITAMIN D3 1 EACH TABLET 1 TAB PO (08:41)
[2022-10-14] MEDS: OMEPRAZOLE 40 MG CAPSULE.DR PO (08:41)
[2022-10-14] MEDS: HYDROCHLOROTHIAZIDE 25 MG TABLET PO (11:20)
--- NOTE | 2022-10-14 11:50 | REH.PTDLY ---
Physical Therapy Daily Note PT Daily Note/Assess Start: 10/10/22 09:36 Freq: Status: Active Protocol: Document 10/14/22 10:40 FERNANDO (Rec: 10/14/22 11:50 FERNANDO [id number]) Physical Therapy Daily Note/Assessment Time In 10:20 Time Out 10:38 Pain Level 0 Subjective Pt up in bathroom with nurses aide upon arrival, transferred care. Pt denies any complaints currently. Therapeutic Exercise Minutes (minutes) 7 Therapeutic Exercise Units 0 Therapeutic Exercise Treatment Instructed in B LE seated exs 10-15x ea for improved strength of extremities to ease functional mobility. Therapeutic Activity Minutes (minutes) 9 Therapeutic Activity Units 1 Chair Transfer Ability Standby Assistance Therapeutic Activity Comments Pt able to transfer off toilet SBA. Dynamic standing at sink SBA while pt washes hands, tends to lean on counter due to fatigue. Gait training with RW 20 feet SBA with O2 on, pt declines ambulating further at this time. States she feels 'wonky', when asked what that means she replies ' lightheaded'. Denies being lightheaded prior to getting up for restroom. Subsides as she sits. Total Therapy Minutes 16 Total Physical Therapy Units 1 Daily Note Summary Pt more fatigued this morning compared to previous date with ambulation. Pt is planning on going to [facility] today for skilled stay.
--- NOTE | 2022-10-14 11:56 | P.DS_ITS ---
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 Resolved with diuresis (3) CHF (congestive heart failure): Assessment and plan: Required IV bumex, fluid restriction and close monitoring. Euvolemic on exam today. Will discharge on PO Bumex 2 daily Qualifiers: Heart failure chronicity: acute on chronic Heart failure type: diastolic Qualified Code(s): I50.33 - Acute on chronic diastolic (congestive) heart failure (4) Anemia: Assessment and plan: Required one unit PRBC. no overt Bleeding. Stable Qualifiers: Anemia type: due to chronic kidney disease Chronic kidney disease stage: stage 3 (moderate) Chronic kidney disease stage 3 subtype: stage 3b (GFR 30-44) Qualified Code(s): N18.32 - Chronic kidney disease, stage 3b; D63.1 - Anemia in chronic kidney disease (5) CKD (chronic kidney disease) stage 3, GFR 30-59 ml/min: Assessment and plan: Had ELI while in [facility]. Cr back to baseline now. (6) Acute and chronic respiratory failure with hypoxia: Assessment and plan: On baseline O2. Monitor (7) Atrial fibrillation: Assessment and plan: On Eliquis for AC. C/w lopressor (8) Hypertension: Assessment and plan: C/w home meds. Outpatient f/u (9) Depression: Assessment and plan: Stable. No SI/HI. C/w home meds (10) Generalized weakness: Assessment and plan: Improving with PT/OT. D/c to short term rehab for continued PT eval and rx (11) Obesity: Assessment and plan: Outpatient f/u (12) C. difficile diarrhea: Assessment and plan: Developed while in patient. No diarrhea. Finish oral vancomycin PO (13) UTI due to Klebsiella species: Assessment and plan: Klebsiella in urine. Likely colonization. No urinary complaints. High threshold for initiating abx due to current c diff. DS: Summary Hospital Course Hospital Course: Patient admitted for worsening resp failure - sec to acute on chronic diastolic HF for which she received IV diuresis with Bumex drip with slow but progressive clinial improvement. Euvolemic on exam today. No active complaints to offer. More or less back to baseline She also developed c diff while inpatient. On PO vancomycin, no GI complaints. Will d/c on oral vancomycin Status at Discharge Overall status at discharge: patient is back to baseline Time Spent with Patient Time attestation: Total time spent providing and/or coordinating discharge services: Time spent: greater than 30 minutes Exam Constitutional Vital Signs - 24 hr 10/13/22 12:04 10/13/22 13:27 10/13/22 15:58 Temperature 98 F Pulse Rate 66 71 68 Respiratory Rate 20 Blood Pressure [Left Arm] 155/70 H Blood Pressure [Right Arm] Pulse Oximetry 94 L Oxygen Delivery Method Nasal Cannula Oxygen Delivery Flow Rate 10/13/22 18:01 10/13/22 20:00 10/13/22 20:25 Temperature Pulse Rate 73 79 Respiratory Rate Blood Pressure [Left Arm] Blood Pressure [Right Arm] Pulse Oximetry 93 L Oxygen Delivery Method Nasal Cannula Oxygen Delivery Flow Rate 3 10/13/22 21:51 10/13/22 22:00 10/14/22 00:00 Temperature 98.1 F Pulse Rate 63 83 64 Respiratory Rate 18 Blood Pressure [Left Arm] Blood Pressure [Right Arm] 157/75 H Pulse Oximetry 91 L Oxygen Delivery Method Nasal Cannula Oxygen Delivery Flow Rate 3 10/14/22 02:00 10/14/22 03:48 10/14/22 04:13 Temperature Pulse Rate 65 67 Respiratory Rate Blood Pressure [Left Arm] Blood Pressure [Right Arm] Pulse Oximetry 93 L Oxygen Delivery Method Nasal Cannula Oxygen Delivery Flow Rate 3 10/14/22 05:47 10/14/22 05:54 10/14/22 08:09 Temperature 98.0 F Pulse Rate 69 64 76 Respiratory Rate 20 Blood Pressure [Left Arm] 149/76 H Blood Pressure [Right Arm] Pulse Oximetry 93 L Oxygen Delivery Method Nasal Cannula Oxygen Delivery Flow Rate 3 10/14/22 10:20 10/14/22 11:15 10/14/22 11:53 Temperature Pulse Rate 80 76 Respiratory Rate Blood Pressure [Left Arm] Blood Pressure [Right Arm] Pulse Oximetry 95 Oxygen Delivery Method Nasal Cannula Oxygen Delivery Flow Rate 3 Documenting provider has reviewed patient's vital signs: yes Common normals: no apparent distress General appearance: cooperative and comfortable Nutritional appearance: obese Orientation/consciousness: Yes awake HENMT Common normals: normocephalic and head/scalp atraumatic Eye Common normals: conjunctivae normal and no scleral icterus Neck & C-Spine General: other (short thick neck) Respiratory Common normals: normal respiratory effort, no use of accessory muscles and clear to auscultation bilaterally Effort & inspection: able to speak in complete sentences Cardio Common normals: regular rate, regular rhythm, S1 normal heart sound and S2 normal heart sound Back & Pelvis General back: other (kyphoscoliosis of spine) Extremity General: edema (+1) Neuro Common normals: oriented x3, moves all extremities, no focal motor deficits and no sensory deficits noted Psych Common normals: mental status grossly normal, cooperative, denies homicidal ideation and denies suicidal ideation DS: Data Data Completed and Pending Labs on day of discharge: Labs from last 24 hours 10/14/22 10/12/22 04:40 13:59 WBC 6.1 RBC 3.08 L Hgb 9.0 L Hct 29.4 L MCV 95.5 MCH 29.2 MCHC 30.6 RDW 14.1 Plt Count 170 MPV 9.7 Neut % (Auto) 61.5 Lymph % (Auto) 24.7 Lewis % (Auto) 8.6 Eos % (Auto) 4.4 Baso % (Auto) 0.5 Neut # (Auto) 3.7 Lymph # (Auto) 1.5 Lewis # (Auto) 0.5 Eos # (Auto) 0.3 Baso # (Auto) 0.0 Abs Immat Gran (auto) 0.02 Imm/Tot Granulo (auto) 0.3 Sodium 141 Potassium 3.6 Chloride 91 L Carbon Dioxide 47.4 H Anion Gap 6.2 BUN 41.0 H Creatinine 1.54 H Est GFR ( Amer) 40 L Est GFR (Non-Af Amer) 33 L BUN/Creatinine Ratio 26.6 Glucose 110 H Calcium 9.0 Total Bilirubin 0.4 AST 17 ALT 14 Alkaline Phosphatase 60 NT-Pro-B Natriuret Pep 22061.0 H* Total Protein 6.2 L Albumin 2.2 L Globulin 4.0 Albumin/Globulin Ratio 0.6 SARS-CoV-2 RNA (MARRY) Invalid A Discharge Plan Discharge Disposition: Xfer SNF Condition: Fair Discharge Medications: New vancomycin 125 mg capsule 125 mg PO Q6H 7 Days Qty: 28 0RF bumetanide 2 mg tablet 2 mg PO DAILY Qty: 30 0RF potassium chloride 20 mEq tablet extended release 20 meq PO DAILY Qty: 14 0RF Continued albuterol sulfate 2.5 mg /3 mL (0.083 %) solution for nebulization 2.5 mg continuous nebulization Q6H PRN (Reason: shortness of breath or wheezing) albuterol sulfate [Ventolin HFA] 90 mcg/actuation HFA aerosol inhaler 2 puff INHALATION Q4H PRN (Reason: shortness of breath or wheezing) Eliquis 5 mg tablet 5 mg PO BID alprazolam 1 mg tablet 1 mg PO BID PRN (Reason: anxiety) Rexulti 1 mg tablet 1 mg PO QDAY calcium carbonate-vitamin D3 600 mg-10 mcg (400 unit) tablet 1 tab PO BID cyclobenzaprine 10 mg tablet 10 mg PO TID PRN (Reason: muscle spasm) Trulicity 0.75 mg/0.5 mL pen injector 0.75 mg SUBCUT QWEEK PRN (Reason: high blood sugar) Patient Comments: Wednesday fluoxetine 40 mg capsule 40 mg PO DAILY magnesium oxide 400 mg (241.3 mg magnesium) tablet 400 mg PO BID metoprolol tartrate 50 mg tablet 50 mg PO BID omeprazole 40 mg capsule,delayed release(DR/EC) 40 mg PO BID tizanidine 4 mg tablet 4 mg PO TID PRN (Reason: muscle spasticity) Discontinued bumetanide 1 mg tablet 1 mg PO QDAY Forms: Portal Instructions Follow Up Appointments: PCP in one week Cardiology in 1-2 weeks
--- NOTE | 2022-10-14 12:19 | CM.NOTE ---
Rounds made with bobo Cummings for discharge to [facility] for skilled therapy. Dr. Moran discussed with pt importance of daily weights and also 1200cc fluid restriction daily. Both daughter and pt verbalize importance and understanding.
--- NOTE | 2022-10-14 13:56 | PC.NURSE ---
report called to Diana at the [facility] regarding transfer this afternoon. Also informed about Cdiff isolation
--- NOTE | 2022-10-14 14:10 | SWNOTE1 ---
Pt is ready for discharge today. Pt is going to the [facility] skilled. [facility] set up trips transport for 2:45. SW notified nursing, [facility], and pt's daughter. [facility] sent over dc med rec, updated packet, and completed HENS.
== END 2022-10-14 16:34 | DRG 291 ==
LOC: ER 21:39 → MS 21:59
PROVIDERS: Family Medicine; Internal Medicine; Physician Assistant; Admitting Provider Internal Medicine; Emergency Provider Emergency Medicine; PCP Internal Medicine; Visit Provider Internal Medicine
DX: I13.0 Hypertensive heart and chronic kidney disease with heart failure and stage 1 through stage 4 chronic kidney disease, or unspecified chronic kidney disease (principal); I50.33 Acute on chronic diastolic (congestive) heart failure; J96.21 Acute and chronic respiratory failure with hypoxia; N17.9 Acute kidney failure, unspecified; A04.72 Enterocolitis due to Clostridium difficile, not specified as recurrent; N39.0 Urinary tract infection, site not specified; E44.0 Moderate protein-calorie malnutrition; I48.91 Unspecified atrial fibrillation; E11.22 Type 2 diabetes mellitus with diabetic chronic kidney disease; N18.32 Chronic kidney disease, stage 3b; D63.1 Anemia in chronic kidney disease; F32.A Depression, unspecified; R53.1 Weakness; E66.9 Obesity, unspecified; B96.1 Klebsiella pneumoniae [K. pneumoniae] as the cause of diseases classified elsewhere; F17.210 Nicotine dependence, cigarettes, uncomplicated; E83.51 Hypocalcemia; D50.9 Iron deficiency anemia, unspecified; R01.1 Cardiac murmur, unspecified; Z68.39 Body mass index [BMI] 39.0-39.9, adult; Z79.01 Long term (current) use of anticoagulants; Z79.85 Long-term (current) use of injectable non-insulin antidiabetic drugs; Z79.899 Other long term (current) drug therapy; Z82.5 Family history of asthma and other chronic lower respiratory diseases; Z82.49 Family history of ischemic heart disease and other diseases of the circulatory system
CPT/HCPCS: 36415; 36430; 51798; 71045; 80048; 80053; 81001; 83880; 84484; 85025; 85610; 85730; 86850; 86900; 86901; 86920; 87086; 87150; 87186; 87507; 87635; 87811; 93005; 93308; 94640; 94761; 96365; 96366; 96368; 96375; 96376; 97110; 97162; 97530; 99285; P9016; Q3014; U0003

== ENCOUNTER 2022-11-24 12:11 | Outpatient (OUT) | payer MEDICARE, OTHER, MEDICAID, SELFPAY ==
--- NOTE | 2022-11-24 13:25 | CA_ITS ---
Patient: MARTIN HAGEN Exam Date: 11/24/2022 : 1950 Gender:F Ordering : PHILL SIMPSON Admission #: [id number] Family : Order #: [id number] CLICK HERE TO VIEW EXAM ECHOCARDIOGRAM REPORT PROCEDURE: CA ECHO LIMITED INDICATIONS: Pulmonary hypertension COMPARISON: None. DESCRIPTION: Limited ECHOCARDIOGRAM Real-time transthoracic echocardiography with 2D and M-mode performed. QUALITY: Technical quality was good. LEFT VENTRICLE: Normal chamber size. Moderate concentric left ventricular hypertrophy. Normal systolic function. LV EF: Normal left ventricular ejection fraction, (55%). DIASTOLIC: ATRIAL SEPTUM: LEFT ATRIUM: Severe dilatation. RIGHT ATRIUM: Mild dilatation. RIGHT VENTRICLE: Normal chamber size. Normal systolic function. TRICUSPID VALVE: Normal mobility and thickness. No stenosis with mild regurgitation. Doppler studies reveal severely (>60) elevated right sided pressures. RVSP 62 mmHg MITRAL VALVE: Mildly thickened with normal mobility. Moderate mitral annular calcification. AORTIC VALVE: Normal trileaflet appearance. Moderately calcified aortic valve. AORTIC ROOT: Normal diameter and appearance. PULMONIC VALVE: Not well visualized. PERICARDIUM: No evidence of pericardial effusion. IVC: PLEURA: CONCLUSION: 1. Moderate concentric left ventricular hypertrophy with normal systolic function. LVEF is 55%. 2. Normal right ventricular size and systolic function. 3. Severe left atrial dilatation. 4. Mild tricuspid regurgitation. 5. Severely elevated right-sided pressures. 6. The patient appears to be in atrial fibrillation with rapid ventricular response during the exam. 7. Limited study with limited Doppler interrogation performed. Adult Echocardiography Procedure Report Left Ventricle LVEDD (3.7 - 5.6 cm): 4.51 cm LVESD (2.2 - 4.0 cm): 3.58 cm LVIVS thickness (0.6 - 1.2 cm): 1.37 cm LVPW thickness (0.5 - 1.0 cm): 1.52 cm LVOT Diameter 1.82 cm Left Atrium LA Volume Index (2D A2C): 47.72 ml/m2 Left Atrium Systolic Dimension: 3.26 cm Mitral Valve Right Ventricle Aorta AO Root Diam: 3.54 cm Aortic Valve Tricuspid Valve Peak Velocity (Regurgitant Flow): 3.69 m/s, 2.93 m/s Pulmonic Valve Mean Gradient: 4.06 mm[Hg], 4.33 mm[Hg], 3.79 mm[Hg] Mean Velocity: 0.91 m/s, 0.95 m/s, 0.90 m/s Peak Velocity: 1.50 m/s Peak Gradient: 10.10 mm[Hg], 8.61 mm[Hg], 8.20 mm[Hg] Right Atrium Right Atrium Systolic Pressure: 41.69 ml, 41.69 ml Dictated by: Logan Grady M.D. on 11/25/2022 at 18:17 Approved by: Logan Grady M.D. on 11/25/2022 at 18:27
[2022-11-24 13:47] LABS: Anion Gap 8.4; BUN Creatinine Ratio 19.1; Calcium 8.8 mg/dL (8.5-10.1); Carbon Dioxide 43.3 mmol/L (21.0-32.0); Chloride 95 mmol/L (98-107); Estimated GFR (African America 33 (>=60); Estimated GFR (Non-African Ame 27 (>=60); Glucose 172 mg/dL (74-106); Potassium 3.7 mmol/L (3.5-5.1); Sodium 143 mmol/L (136-145)
== END 2022-11-24 12:12 | disposition home or self-care (01) ==
LOC: LAB 12:12
PROVIDERS: PCP Internal Medicine; Visit Provider Nurse Practitioner
DX: I50.32 Chronic diastolic (congestive) heart failure (principal); I27.20 Pulmonary hypertension, unspecified; I07.1 Rheumatic tricuspid insufficiency
CPT/HCPCS: 36415; 80048; 93308

== ENCOUNTER 2022-12-19 13:43 | Outpatient (REF) | payer MEDICARE, OTHER, MEDICAID, SELFPAY ==
[2022-12-19 14:28] LABS: Bilirubin Urine NEGATIVE (NEGATIVE); Blood Urine LARGE (NEGATIVE); Clarity Urine CLEAR (CLEAR); Color Urine LT. YELLOW (YELLOW); Glucose Urine UA NEGATIVE (NEGATIVE); Ketones Urine NEGATIVE (NEGATIVE); Leukocyte Esterase Urine LARGE (NEGATIVE); Nitrite Urine NEGATIVE (NEGATIVE); Protein Urine 100 mg/dL (NEG/TRACE); Urobilinogen Urine 0.2 EU/dL (0.2-1.0); pH Urine 5.5 (5.0-9.0)
[2022-12-19 14:34] LABS: Urine Microscopic Indicated YES
[2022-12-19 14:41] LABS: Bacteria Urine MODERATE #/HPF (NONE SEEN); Crystals Seen? None Seen #/HPF (None Seen); RBC Urine 20-50 #/HPF (0-2); Squamous Epithelial Cell Urine MODERATE #/LPF (NONE/RARE); WBC Urine 20-50 #/HPF (NONE SEEN)
[2022-12-19 14:42] LABS: Cast Seen? NONE SEEN #/LPF (NONE SEEN); Mucus Urine NONE SEEN (NONE SEEN); Urine Culture Indicated YES
== END 2022-12-19 13:44 | disposition home or self-care (01) ==
LOC: LAB 13:43
PROVIDERS: PCP Internal Medicine; Visit Provider Internal Medicine
DX: N39.0 Urinary tract infection, site not specified (principal)
CPT/HCPCS: 81001; 87086; 87150; 87186

== ENCOUNTER 2023-03-09 14:27 | Inpatient (IN) | payer MEDICARE, OTHER, MEDICAID, SELFPAY ==
[2023-03-09] VITALS (16 sets, daily range): BP systolic 91–123; BP diastolic 52–75; PULSE 77–102; RESP 16–26; TEMP 36.5–36.8; O2SAT 94–98; BMI 29.3; BMI 31.6
--- NOTE | 2023-03-09 14:38 | XR_ITS ---
The [address] [address] Patient Name: MARTIN HAGEN MRN: [id number] date: 1950 Sex: F Assigned Patient Location: ER Current Patient Location: ER Accession/Order Number: [id number] Exam Date: 03/09/2023 15:20 Report Date: 03/09/2023 16:22 At the request of: RASHAD BOUCHER Procedure: XR chest 1V ONE-VIEW CHEST RADIOGRAPH, 03/09/2023, 3:20 PM EST COMPARISON: Chest, 10/13/2022. CLINICAL HISTORY: Weakness Findings and impression: 1. No acute pulmonary disease. 2. Borderline heart size. 3. 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 The bones are demineralized. Electronically authenticated by: Gaby PRICE Date: 03/09/2023 16:22
--- NOTE | 2023-03-09 14:38 | ECG_ITS ---
[facility] Test Date: 2023-03-09 Pat Name: MARTIN HAGEN Department: Room: - Gender: Female Respiratory Technician: : 1950 Requested By: BARRY RENDON Order Number: [id number] Reading MD: LALI RIVERA Measurements Intervals [place] Rate: 91 P: -37 IA: 146 QRS: 35 QRSD: 82 T: 99 QT: 434 QTc: 483 Interpretive Statements 1220 Rapid atrial rhythm 1470 with occasional supraventricular premature complexes 7500 Abnormal QRS-T angle 8304 Long QTc interval 9150 abnormal ECG Compared to ECG 10/08/2022 19:14:58 Sinus rhythm no longer present T-wave abnormality no longer present Possible ischemia no longer present Electronically Signed On 03-11-2023 6:27:39 EST by LALI RIVERA
--- NOTE | 2023-03-09 14:39 | CT_ITS ---
The [address] [address] Patient Name: MARTIN HAGEN MRN: [id number] date: 1950 Sex: F Assigned Patient Location: ER Current Patient Location: ER Accession/Order Number: [id number] Exam Date: 03/09/2023 15:18 Report Date: 03/09/2023 15:44 At the request of: RASHAD BOUCHER Procedure: CT head/brain wo con EXAM: CT head/brain wo con HISTORY: Dizziness, seizure. Weakness. COMPARISON: Comparison made to head CT dated 03/08/2022. TECHNIQUE: Contiguous transaxial images were obtained from skull base to vertex without administration of intravenous contrast. Dose reduction: mA and/or kV are were adjusted by automated exposure control software based upon patients height and weight. FINDINGS: There is no focal scalp soft tissue swelling or acute calvarial fracture. The visualized globes and orbits are grossly normal. Visualized paranasal sinuses are clear. Bilateral mastoid air cells are clear. The ventricles and sulci are prominent bilaterally. There is slight asymmetry with slight prominence of the right temporal horn of the lateral ventricles. There is periventricular and deep subcortical white matter low-attenuation consistent with small vessel ischemic disease. There is no intraparenchymal hemorrhage, extraaxial fluid collection, mass lesion, or acute large territory ischemia by noncontrast CT. There is mild intracranial atherosclerosis. CT/CT head/brain wo con IMPRESSION: 1. No acute intracranial hemorrhage or acute large territory ischemia by noncontrast CT 2. Cerebral atrophy and chronic small vessel ischemic disease. If the patient has a focal neurologic deficit or there is clinical suspicion for acute cerebrovascular accident, brain MRI would be recommended for further evaluation. Electronically authenticated by: GINA ART Date: 03/09/2023 15:44
--- NOTE | 2023-03-09 14:40 | ED.GENADUL1 ---
HPI - General Adult General Chief complaint: Seizure Stated complaint: GENERAL WEAKNESS/VOMITTING Time Seen by Provider: 03/09/23 14:38 History of Present Illness HPI narrative: patient is a 72-year-old female with a history of seizure disorder presents to the emergency department for generalized weakness and dizziness that began today. She states she has had nausea and vomiting today. She denies any chest pain, shortness of breath, fevers, chills, cough or congestion. She denies urinary symptoms. She states she has had decreased oral intake. EMS reports that when the patient was placed on their cot and taken out into the sun light, she had a witnessed seizure. No falls or injuries noted with this. They gave 2.5 mg IV Versed. patient denies any pain at this time but states she is nauseous. She has a history of seizure disorder, she does not know when she had her last seizure and states she does not take any medications daily for seizures. She lives at home with her daughters. Related Data Home Medications Medication Instructions Recorded Confirmed albuterol sulfate 90 mcg/actuation 2 puff inhalation Q4H PRN 10/08/22 03/09/23 aerosol inhaler (Ventolin HFA) shortness of breath or wheezing alprazolam 1 mg tablet 1 mg PO TID PRN anxiety 10/08/22 03/09/23 apixaban 5 mg tablet (Eliquis) 5 mg PO BID 10/08/22 03/09/23 brexpiprazole 1 mg tablet (Rexulti) 1 mg PO QDAY 10/08/22 03/09/23 cyclobenzaprine 10 mg tablet 10 mg PO TID PRN muscle spasm 10/08/22 03/09/23 dulaglutide 0.75 mg/0.5 mL 0.75 mg subcut QWEEK PRN high 10/08/22 03/09/23 subcutaneous pen injector blood sugar (Trulicity) fluoxetine 40 mg capsule 40 mg PO DAILY 10/08/22 03/09/23 magnesium oxide 400 mg (241.3 mg 400 mg PO BID 10/08/22 03/09/23 magnesium) tablet metoprolol tartrate 50 mg tablet 50 mg PO BID 10/08/22 03/09/23 omeprazole 40 mg capsule,delayed 40 mg PO BID 10/08/22 03/09/23 release tizanidine 4 mg tablet 4 mg PO TID PRN muscle spasticity 10/08/22 03/09/23 bumetanide 2 mg tablet 2 mg PO DAILY 03/09/23 03/09/23 Previous Rx's Medication Instructions Recorded potassium chloride 20 mEq 20 meq PO DAILY #14 tabs 10/14/22 tablet,extended release vancomycin 125 mg capsule 125 mg PO Q6H 7 days #28 caps 10/14/22 Allergies Allergy/AdvReac Type Severity Reaction Status Date / Time No Known Drug Allergies Allergy Verified 03/09/23 14:42 Review of Systems ROS Constitutional Denies: fever or chills Ears, nose, mouth, and throat Denies: throat pain Cardiovascular Denies: chest pain Respiratory Denies: shortness of breath or cough Gastrointestinal Reports: nausea and vomiting; Denies: diarrhea Genitourinary Denies: painful urination Integumentary/Breast Denies: rash Neurological Denies: headache Hematologic/Lymphatic Denies: easy bruising PFSH PFSH Medical History (Updated 03/09/23 @ 17:19 by KIA Mo) Anemia ?D64.9 - Anemia, unspecified (ICD-10) Atrial fibrillation ?I48.91 - Unspecified atrial fibrillation (ICD-10) CHF (congestive heart failure) ?I50.9 - Heart failure, unspecified (ICD-10) CHF (congestive heart failure) ?I50.9 - Heart failure, unspecified (ICD-10) CKD (chronic kidney disease) stage 3, GFR 30-59 ml/min ?N18.30 - Chronic kidney disease, stage 3 unspecified (ICD-10) COPD (chronic obstructive pulmonary disease) ?J44.9 - Chronic obstructive pulmonary disease, unspecified (ICD-10) Depression ?F32.A - Depression, unspecified (ICD-10) Diabetes ?E11.9 - Type 2 diabetes mellitus without complications (ICD-10) Edema ?R60.9 - Edema, unspecified (ICD-10) Hernia of anterior abdominal wall ?K43.9 - Ventral hernia without obstruction or gangrene (ICD-10) Hypertension ?I10 - Essential (primary) hypertension (ICD-10) Hypocalcemia ?E83.51 - Hypocalcemia (ICD-10) Obesity ?E66.9 - Obesity, unspecified (ICD-10) Reducible umbilical hernia ?K42.9 - Umbilical hernia without obstruction or gangrene (ICD-10) Surgical History (Updated 10/09/22 @ 00:41 by Jennifer Trejo) H/O: hysterectomy ?Z90.710 - Acquired absence of both cervix and uterus (ICD-10) History of cholecystectomy ?Z90.49 - Acquired absence of other specified parts of digestive tract (ICD-10) Family History (Updated 10/09/22 @ 00:43 by Jennifer Trejo) Family/Other Family history of CHF (congestive heart failure) Family history of COPD (chronic obstructive pulmonary disease) Family history of hypertension Social History Smoking status: Never smoker Second hand tobacco smoke exposure: No Non-prescribed substance use: denies use Previous occupational history: retired Known occupational exposures/hazards: Yes Highest level of school completed/degree received: some college, no degree Are you now , , , , never or living with a partner: In a typical week, how many times do you talk on the telephone with family, friends, or neighbors: 3 or more times per week How often do you get together with friends or relatives: 3 or more times per week How often do you attend congregation or orthodoxy services: 1-3 times per year Do you belong to any clubs or organizations such as congregation groups unions, [employer] or athletic groups, or school groups: no Total score: 1 Score interpretation: A score of less than or equal to 1 indicates the most socially isolated. Little interest or pleasure in doing things: not at all Feeling down, depressed, or hopeless: not at all Feel stressed/tense/nervous/anxious/difficulty sleeping: not at all Due to disability, difficulty making decisions: No Do you think of yourself as: straight/heterosexual Gender Identity: female Exam Narrative Exam Narrative: Gen.: Awake, alert, in no distress Head: Normocephalic, atraumatic ENT: Moist mucous membranes Respiratory: No respiratory distress, lungs clear bilaterally Cardio: Regular rate and rhythm Gastrointestinal: Abdomen is soft, nondistended and nontender to palpation Extremities: Moves extremities equally, no injuries noted Psych: Normal mood and affect Neuro: No focal neuro deficit; patient is alert and oriented to person, place, time, she is slow to answer questions but has no slurred speech. No unilateral weakness. 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 with normal dorsiflexion and plantarflexion of the lower extremities Skin: Warm, dry, intact Constitutional Vital Signs, click to edit/add: Last Vital Signs Temp 98.1 F 03/09/23 14:36 Pulse 81 03/09/23 15:50 Resp 26 H 03/09/23 15:10 BP 123/75 03/09/23 14:37 Pulse Ox 97 03/09/23 15:50 O2 Del Method Nasal Cannula 03/09/23 14:36 O2 Flow Rate 2 03/09/23 14:36 Course Vital Signs Vital signs: Vital Signs Temperature 98.1 F 03/09/23 14:36 Pulse Rate 102 H 03/09/23 14:36 Respiratory Rate 22 03/09/23 14:36 Blood Pressure 123/75 03/09/23 14:36 Pulse Oximetry 97 03/09/23 14:36 Oxygen Delivery Method Nasal Cannula 03/09/23 14:36 Oxygen Delivery Flow Rate 2 03/09/23 14:36 Temperature 98.1 F 03/09/23 14:36 Pulse Rate 81 03/09/23 15:50 Respiratory Rate 26 H 03/09/23 15:10 Blood Pressure 123/75 03/09/23 14:37 Pulse Oximetry 97 03/09/23 15:50 Oxygen Delivery Method Nasal Cannula 03/09/23 14:36 Oxygen Delivery Flow Rate 2 03/09/23 14:36 Medical Decision Making MDM Narrative Medical decision making narrative: CT of the brain, chest x-ray are unremarkable. Patient maintains normal vital signs in the Emergency Room and her mental status improved significantly while in the Emergency Room. She has no complaints of chest pain, shortness of breath and is not profoundly dizzy in the Emergency Room. labs studies show the patient has hemoglobin 7.1 with elevated BUN 85.0 and creatinine 4.2. She is treated with IV fluids, rectal exam was performed with light brown stool obtained. Patient had a colonoscopy one year ago, she states she has had bleeding from her hemorrhoids. Vital signs do not show tachycardia or hypotension in the Emergency Room so a type and screen were obtained the blood will be deferred at this time. She was also found to have a critically low calcium, calcium gluconate was given for this. She was also found to have urinary tract infection and was treated with IV Rocephin. Patient will be admitted for anemia, urinary tract infection, acute kidney injury. Medical Records Medical records reviewed: Yes I reviewed the patient's medical records Lab Data Lab results reviewed: Yes I reviewed the patient's lab results Labs: Lab Results 03/09/23 03/09/23 03/09/23 Range/Units 15:10 15:35 16:10 WBC 13.3 H (4.0-11.0) 10^3/uL RBC 2.35 L (4.20-5.40) 10^6/uL Hgb 7.1 L (12.0-16.0) g/dL Hct 21.7 L* (36.0-48.0) % MCV 92.3 (81.0-99.0) fL MCH 30.2 (26.7-34.0) pg MCHC 32.7 (29.9-35.2) g/dL RDW 15.0 (11.0-15.0) % Plt Count 197 (150-450) 10^3/uL MPV 9.7 (9.5-13.5) fL Neut % (Auto) 79.9 H (43.0-75.0) % Lymph % (Auto) 12.6 L (20.5-60.0) % [place] % (Auto) 4.8 (1.7-12.0) % Eos % (Auto) 1.4 (0.9-7.0) % Baso % (Auto) 0.2 (0.2-2.0) % Neut # (Auto) 10.6 H (1.4-6.5) 10^3/uL Lymph # (Auto) 1.7 (1.2-3.8) 10^3/uL [place] # (Auto) 0.6 (0.3-0.8) 10^3/uL Eos # (Auto) 0.2 (0.0-0.7) 10^3/uL Baso # (Auto) 0.0 (0.0-0.1) 10^3/uL Abs Immat Gran (auto) 0.14 H (0.00-0.03) 10^3/uL Imm/Tot Granulo (auto) 1.1 H (0.0-0.5) % Sodium 128 L (136-145) mmol/L Potassium 3.1 L (3.5-5.1) mmol/L Chloride 89 L (98-107) mmol/L Carbon Dioxide 26.8 (21.0-32.0) mmol/L Anion Gap 15.3 BUN 85.0 H* (7.0-18.0) mg/dL Creatinine 4.23 H (0.55-1.02) mg/dL Est GFR ( Amer) 12 L (>=60) Est GFR (Non-Af Amer) 10 L (>=60) BUN/Creatinine Ratio 20.1 Glucose 192 H (74-106) mg/dL Lactate 3.6 H* (0.4-2.0) mmol/L Calcium 5.6 L* (8.5-10.1) mg/dL Magnesium 1.4 L (1.8-2.4) mg/dL Total Bilirubin 0.5 (0.2-1.0) mg/dL AST 22 (15-37) U/L ALT 10 L (14-59) U/L Alkaline Phosphatase 76 (46-116) U/L Troponin I High Sens 7.0 (4.0-51.3) pg/mL Total Protein 7.1 (6.4-8.2) g/dL Albumin 2.7 L (3.4-5.0) g/dL Globulin 4.4 g/dL Albumin/Globulin Ratio 0.6 TSH 0.860 (0.358-3.740) uIU/mL Urine Color Lt. yellow (YELLOW) Urine Clarity Clear (CLEAR) Urine pH 5.0 (5.0-9.0) Ur Specific [place] 1.010 (1.005-1.025) Urine Protein 30 A (NEG/TRACE) mg/dL Urine Glucose (UA) Negative (NEGATIVE) mg/dL Urine Ketones Negative (NEGATIVE) mg/dL Urine Occult Blood Trace-i (NEGATIVE) Urine Nitrite Negative (NEGATIVE) Urine Bilirubin Negative (NEGATIVE) Urine Urobilinogen 0.2 (0.2-1.0) EU/dL Ur Leukocyte Esterase Moderate A (NEGATIVE) Urine RBC 0-2 (0-2) #/HPF Urine WBC 5-10 A (NONE SEEN) #/HPF Ur Squamous Epith Cells Rare (NONE/RARE) #/LPF Urine Crystals None seen (None Seen) #/HPF Urine Bacteria Moderate A (NONE SEEN) #/HPF Urine Casts None seen (NONE SEEN) #/LPF Urine Mucus None seen (NONE SEEN) Ur Culture Indicated? Yes Stool Occult Blood Negative Imaging Data Chest x-ray: Attestation: I have reviewed the pertinent imaging results. CT scan - head: Attestation: I have reviewed the pertinent imaging results. Radiologist's impression: Procedure: CT head/brain wo con EXAM: CT head/brain wo con HISTORY: Dizziness, seizure. Weakness. COMPARISON: Comparison made to head CT dated 03/08/2022. TECHNIQUE: Contiguous transaxial images were obtained from skull base to vertex without administration of intravenous contrast. Dose reduction: mA and/or kV are were adjusted by automated exposure control software based upon patients height and weight. FINDINGS: There is no focal scalp soft tissue swelling or acute calvarial fracture. The visualized globes and orbits are grossly normal. Visualized paranasal sinuses are clear. Bilateral mastoid air cells are clear. The ventricles and sulci are prominent bilaterally. There is slight asymmetry with slight prominence of the right temporal horn of the lateral ventricles. There is periventricular and deep subcortical white matter low-attenuation consistent with small vessel ischemic disease. There is no intraparenchymal hemorrhage, extraaxial fluid collection, mass lesion, or acute large territory ischemia by noncontrast CT. There is mild intracranial atherosclerosis. IMPRESSION: 1. No acute intracranial hemorrhage or acute large territory ischemia by noncontrast CT 2. Cerebral atrophy and chronic small vessel ischemic disease. If the patient has a focal neurologic deficit or there is clinical suspicion for acute cerebrovascular accident, brain MRI would be recommended for further evaluation. Electronically authenticated by: GINA ART Date: 03/09/2023 15:44 ECG Data Attestation: I personally reviewed and interpreted this ECG as follows: (rapid atrial rhythm at a rate of ninety-one, no acute ST elevation, occasional ectopy, QTC 483. EKG reviewed by attending physician) Discharge Plan Discharge Chief Complaint: Seizure Clinical Impression: Acute kidney injury, Dizziness, Anemia, Seizure disorder, Weakness, Hypocalcemia Patient Disposition: Admitted As Inpatient Time of Disposition Decision: 17:18 Condition: Good Prescriptions / Home Meds: No Action albuterol sulfate [Ventolin HFA] 90 mcg/actuation HFA aerosol inhaler 2 puff INHALATION Q4H PRN (Reason: shortness of breath or wheezing) Eliquis 5 mg tablet 5 mg PO BID alprazolam 1 mg tablet 1 mg PO TID PRN (Reason: anxiety) Rexulti 1 mg tablet 1 mg PO QDAY cyclobenzaprine 10 mg tablet 10 mg PO TID PRN (Reason: muscle spasm) Trulicity 0.75 mg/0.5 mL pen injector 0.75 mg SUBCUT QWEEK PRN (Reason: high blood sugar) Patient Comments: Wednesday fluoxetine 40 mg capsule 40 mg PO DAILY magnesium oxide 400 mg (241.3 mg magnesium) tablet 400 mg PO BID metoprolol tartrate 50 mg tablet 50 mg PO BID omeprazole 40 mg capsule,delayed release(DR/EC) 40 mg PO BID tizanidine 4 mg tablet 4 mg PO TID PRN (Reason: muscle spasticity) vancomycin 125 mg capsule 125 mg PO Q6H 7 Days Qty: 28 0RF potassium chloride 20 mEq tablet extended release 20 meq PO DAILY Qty: 14 0RF bumetanide 2 mg tablet 2 mg PO DAILY Rx Instructions: Takes 2 mg in AM and 1 mg at bedtime Referrals: BARRY RENDON [Primary Care Provider] - 1 week
[2023-03-09] MEDS: ONDANSETRON PF 4 MG/2 ML VIAL IV ×2 (14:55→22:53)
[2023-03-09] MEDS: 0.9 % SODIUM CHLORIDE 1,000 ML 1000 ML IV (14:55)
[2023-03-09 15:33] LABS: Basophils Percent Auto 0.2 % (0.2-2.0); Eosinophils Absolute Auto 0.2 10^3/uL (0.0-0.7); Eosinophils Percent Auto 1.4 % (0.9-7.0); Hemoglobin 7.1 g/dL (12.0-16.0); Immature Granulocytes Abs Auto 0.14 10^3/uL (0.00-0.03); Immature Granulocytes Pct Auto 1.1 % (0.0-0.5); Lymphocytes Absolute Auto 1.7 10^3/uL (1.2-3.8); Lymphocytes Percent Auto 12.6 % (20.5-60.0); Mean Corpuscular HGB Conc 32.7 g/dL (29.9-35.2); Mean Corpuscular Hemoglobin 30.2 pg (26.7-34.0); Mean Corpuscular Volume 92.3 fL (81.0-99.0); Mean Platelet Volume 9.7 fL (9.5-13.5); Monocytes Absolute Auto 0.6 10^3/uL (0.3-0.8); Monocytes Percent Auto 4.8 % (1.7-12.0); Neutrophils Absolute Auto 10.6 10^3/uL (1.4-6.5); Neutrophils Percent Auto 79.9 % (43.0-75.0); Platelet Count 197 10^3/uL (150-450); Red Blood Count 2.35 10^6/uL (4.20-5.40); White Blood Count 13.3 10^3/uL (4.0-11.0)
[2023-03-09 15:36] LABS: Hematocrit 21.7 % (36.0-48.0)
[2023-03-09 15:41] LABS: Bilirubin Urine NEGATIVE (NEGATIVE); Blood Urine TRACE-I (NEGATIVE); Clarity Urine CLEAR (CLEAR); Color Urine LT. YELLOW (YELLOW); Glucose Urine UA NEGATIVE (NEGATIVE); Ketones Urine NEGATIVE (NEGATIVE); Leukocyte Esterase Urine MODERATE (NEGATIVE); Nitrite Urine NEGATIVE (NEGATIVE); Protein Urine 30 mg/dL (NEG/TRACE); Urobilinogen Urine 0.2 EU/dL (0.2-1.0)
[2023-03-09 15:42] LABS: Urine Microscopic Indicated YES
[2023-03-09 15:51] LABS: Bacteria Urine MODERATE #/HPF (NONE SEEN); Cast Seen? NONE SEEN #/LPF (NONE SEEN); Crystals Seen? None Seen #/HPF (None Seen); Mucus Urine NONE SEEN (NONE SEEN); RBC Urine 0-2 #/HPF (0-2); Squamous Epithelial Cell Urine RARE #/LPF (NONE/RARE); Urine Culture Indicated YES
[2023-03-09 15:55] LABS: Alanine Aminotransferase 10 U/L (14-59); Albumin Globulin Ratio 0.6; Albumin Level 2.7 g/dL (3.4-5.0); Alkaline Phosphatase 76 U/L (46-116); Anion Gap 15.3; Aspartate Amino Transferase 22 U/L (15-37); BUN Creatinine Ratio 20.1; Bilirubin Total 0.5 mg/dL (0.2-1.0); Carbon Dioxide 26.8 mmol/L (21.0-32.0); Chloride 89 mmol/L (98-107); Estimated GFR (African America 12 (>=60); Estimated GFR (Non-African Ame 10 (>=60); Globulin 4.4 g/dL; Glucose 192 mg/dL (74-106); Magnesium 1.4 mg/dL (1.8-2.4); Potassium 3.1 mmol/L (3.5-5.1); Sodium 128 mmol/L (136-145); Total Protein 7.1 g/dL (6.4-8.2)
[2023-03-09 16:01] LABS: Calcium 5.6 mg/dL (8.5-10.1)
[2023-03-09 16:02] LABS: Lactate/Lactic Acid 3.6 mmol/L (0.4-2.0)
[2023-03-09] MEDS: CEFTRIAXONE 1,000 MG in 0.9 % SODIUM CHLORIDE 50 ML 100 MG IV (16:24)
[2023-03-09] MEDS: CALCIUM GLUCONATE 2,000 MG in 0.9 % SODIUM CHLORIDE 100 ML 120 MG IV (16:29)
[2023-03-09 16:39] LABS: Occult Blood Negative
[2023-03-09 17:54] LABS: Lactate/Lactic Acid 0.8 mmol/L (0.4-2.0)
[2023-03-09 18:01] LABS: Percent Iron Saturation 12.8 %
[2023-03-09] MEDS: LACTATED RINGER'S SOLUTION 1,000 ML 100 ML IV (18:57)
--- NOTE | 2023-03-09 19:55 | RESP.RT ---
decreased to 2L nasal cannula
--- NOTE | 2023-03-09 20:40 | PC.NURSE ---
emesis yellow bile color
[2023-03-09 22:32] LABS: Glucometer 163 mg/dL (74-106)
[2023-03-09] MEDS: APIXABAN 5 MG TABLET PO (22:40)
[2023-03-09] MEDS: OMEPRAZOLE 40 MG CAPSULE.DR PO (22:40)
[2023-03-09] MEDS: MAGNESIUM OXIDE 400 MG TABLET PO (22:40)
[2023-03-09] MEDS: ACETAMINOPHEN 325 MG TABLET 650 MG PO (22:41)
[2023-03-09] MEDS: ALPRAZOLAM 1 MG TABLET PO (22:53)
[2023-03-10] VITALS (23 sets, daily range): BP systolic 93–117; BP diastolic 55–66; PULSE 64–80; RESP 16–22; TEMP 36.6–36.7; O2SAT 94–100
[2023-03-10 05:41] LABS: Basophils Percent Auto 0.2 % (0.2-2.0); Eosinophils Absolute Auto 0.1 10^3/uL (0.0-0.7); Eosinophils Percent Auto 1.2 % (0.9-7.0); Immature Granulocytes Abs Auto 0.09 10^3/uL (0.00-0.03); Lymphocytes Absolute Auto 2.1 10^3/uL (1.2-3.8); Lymphocytes Percent Auto 22.9 % (20.5-60.0); Mean Corpuscular HGB Conc 32.3 g/dL (29.9-35.2); Mean Corpuscular Hemoglobin 29.3 pg (26.7-34.0); Mean Corpuscular Volume 90.8 fL (81.0-99.0); Mean Platelet Volume 9.8 fL (9.5-13.5); Monocytes Absolute Auto 0.6 10^3/uL (0.3-0.8); Monocytes Percent Auto 6.4 % (1.7-12.0); Neutrophils Absolute Auto 6.3 10^3/uL (1.4-6.5); Neutrophils Percent Auto 68.3 % (43.0-75.0); Platelet Count 164 10^3/uL (150-450); Red Blood Count 2.39 10^6/uL (4.20-5.40); Red Cell Distribution Width 15.4 % (11.0-15.0); White Blood Count 9.2 10^3/uL (4.0-11.0)
[2023-03-10 06:06] LABS: Albumin Globulin Ratio 0.6; Albumin Level 2.4 g/dL (3.4-5.0); Alkaline Phosphatase 59 U/L (46-116); Anion Gap 12.3; Aspartate Amino Transferase 19 U/L (15-37); BUN Creatinine Ratio 20.8; Bilirubin Total 0.9 mg/dL (0.2-1.0); Carbon Dioxide 29.4 mmol/L (21.0-32.0); Chloride 94 mmol/L (98-107); Estimated GFR (African America 14 (>=60); Estimated GFR (Non-African Ame 12 (>=60); Globulin 4.1 g/dL; Glucose 88 mg/dL (74-106); Sodium 133 mmol/L (136-145); Total Protein 6.5 g/dL (6.4-8.2)
[2023-03-10] MEDS: ACETAMINOPHEN 325 MG TABLET 650 MG PO (06:15)
[2023-03-10 06:16] LABS: Alanine Aminotransferase <14 U/L (14-59); Calcium 5.9 mg/dL (8.5-10.1); Potassium 2.7 mmol/L (3.5-5.1)
[2023-03-10 06:17] LABS: Hematocrit 21.7 % (36.0-48.0)
[2023-03-10] MEDS: LACTATED RINGER'S SOLUTION 1,000 ML 100 ML IV (06:20)
[2023-03-10] MEDS: MAGNESIUM OXIDE 400 MG TABLET PO ×2 (08:18→20:45)
[2023-03-10] MEDS: OMEPRAZOLE 40 MG CAPSULE.DR PO ×2 (08:19→20:46)
[2023-03-10] MEDS: POTASSIUM CHLORIDE 10 MEQ ER TABLET 40 MEQ PO (08:19)
[2023-03-10] MEDS: METOPROLOL TARTRATE 50 MG TABLET PO ×2 (08:19→20:45)
[2023-03-10] MEDS: ATORVASTATIN CALCIUM 20 MG TABLET PO (08:19)
[2023-03-10] MEDS: CALCIUM CARBONATE 600 MG TABLET PO ×2 (08:19→20:45)
[2023-03-10] MEDS: APIXABAN 5 MG TABLET PO ×2 (08:19→20:45)
[2023-03-10] MEDS: FLUOXETINE HCL 20 MG CAPSULE 40 MG PO (08:19)
[2023-03-10] MEDS: POTASSIUM CHLORIDE 40 MEQ in 0.9 % SODIUM CHLORIDE 250 ML 67.5 MEQ IV ×2 (08:21→17:23)
[2023-03-10] MEDS: BUDESONIDE 0.5 MG/2 ML AMPULE NEB IH ×2 (10:47→20:26)
[2023-03-10] MEDS: ALBUTEROL SULFATE 2.5 MG/3 ML VIAL NEB IH ×2 (10:47→20:26)
--- NOTE | 2023-03-10 11:12 | CM.NOTE ---
Important Message From medicare discussed with pt, pt verbalizes understanding and signs paper. Original given to pt and copy placed on pt's chart.
--- NOTE | 2023-03-10 11:26 | CM.NOTE ---
Rounding with Dr. Moran. Nurse zayra in and out of room. Lengthy conversation with Dr. Moran and patient regarding potential light sensitivity causing seizures. Pt. voices she is current with [facility], has home oxygen and wears at [address] Moran to order EEG, MRI brain and possibly neurology consultation. Continue to follow for d/c needs.
[2023-03-10 14:07] LABS: Hemoglobin 7.6 g/dL (12.0-16.0)
[2023-03-10 14:15] LABS: Anion Gap 15.8; BUN Creatinine Ratio 20.8; Carbon Dioxide 27.6 mmol/L (21.0-32.0); Chloride 96 mmol/L (98-107); Estimated GFR (African America 16 (>=60); Estimated GFR (Non-African Ame 13 (>=60); Glucose 120 mg/dL (74-106); Potassium 3.4 mmol/L (3.5-5.1); Sodium 136 mmol/L (136-145)
[2023-03-10 14:18] LABS: Calcium 5.9 mg/dL (8.5-10.1)
[2023-03-10 14:35] LABS: Hematocrit 22.9 % (36.0-48.0)
[2023-03-10] MEDS: CEFTRIAXONE 1,000 MG in 0.9 % SODIUM CHLORIDE 50 ML 100 MG IV (15:13)
[2023-03-10] MEDS: ONDANSETRON PF 4 MG/2 ML VIAL IV (15:36)
[2023-03-10] MEDS: ALPRAZOLAM 1 MG TABLET PO (16:53)
--- NOTE | 2023-03-10 19:17 | P.HP_ITS ---
H&P: HPI History of Present Illness Chief complaint: Weakness, seizure, diarrhea Narrative: 72 y o female, lives at home, on 3 L O2 via NC for her COPD, HFpEF was experiencing urinary symptoms about two weeks ago, was evaluated by Urology and was prescribed oral Ciprfloxacin for UTI. She finished her oral abx and her urinary symptoms (urgency,cloudy colored urine, dysuria) resolved. However, for past one week, she developed nausea, loss of appetite, recurrent retching but no vomiting along with 2-3 episodes of watery diarrhea. She denies blood in stool, or sig abdominal discomfort. As her symptoms continued, she increasingly felt more weak, tired and was brought over to ED last night via EMS for her symptoms. She typically has diarrhea alternating with constipation but this was different as it accompanied loss of appetite and inability to eat/drink adequately due to nausea. She has prior hx of C diff in 10/23 that was treated with PO vancomycin. While EMS was transporting the patient, she had a generalized tonic clonic seizure followed by post ictal confusion when she arrived to ED. On detailed i nquiry and interview, it seems like for a few months, she would experience seizure like episode 1-2 times per months, usually brought on by bright sunlight. She did not realize she was experiencing what most likely appear to be seizures and has not sought care for those episodes. W/u in ED revealed multiple electrolyte abnormalities along with ELI and anemia. She denies any active GI bleeding. Her Hb ranges from 8-9. Her last colonoscopy/EGD was a little over a year ago. She intermittently requires blood tx. On admission, her Hb was 7.1, Ordered one unit PRBC for her. Earlier today when I evaluated her, she reports feeling better than last night but still feels weak, tired. She was able to et breakfast but had emesis bag in her hand because she felt like she was going to throw up Review of Systems ROS Status of ROS 10 or more systems reviewed and unremarkable except as noted in history and below [facility] Medical History (Updated 03/10/23 @ 19:44 by Shaikh Luisa MD) (HFpEF) heart failure with preserved ejection fraction ?I50.30 - Unspecified diastolic (congestive) heart failure (ICD-10) Anemia ?D64.9 - Anemia, unspecified (ICD-10) Anemia due to chronic kidney disease ?N18.9 - Chronic kidney disease, unspecified (ICD-10) ?D63.1 - Anemia in chronic kidney disease (ICD-10) Atrial fibrillation ?I48.91 - Unspecified atrial fibrillation (ICD-10) CHF (congestive heart failure) ?I50.9 - Heart failure, unspecified (ICD-10) CHF (congestive heart failure) ?I50.9 - Heart failure, unspecified (ICD-10) Chronic respiratory failure with hypoxia ?J96.11 - Chronic respiratory failure with hypoxia (ICD-10) CKD (chronic kidney disease) stage 3, GFR 30-59 ml/min ?N18.30 - Chronic kidney disease, stage 3 unspecified (ICD-10) COPD (chronic obstructive pulmonary disease) ?J44.9 - Chronic obstructive pulmonary disease, unspecified (ICD-10) Depression ?F32.A - Depression, unspecified (ICD-10) Diabetes ?E11.9 - Type 2 diabetes mellitus without complications (ICD-10) Edema ?R60.9 - Edema, unspecified (ICD-10) Heart murmur ?R01.1 - Cardiac murmur, unspecified (ICD-10) Hernia of anterior abdominal wall ?K43.9 - Ventral hernia without obstruction or gangrene (ICD-10) Hypertension ?I10 - Essential (primary) hypertension (ICD-10) Hypocalcemia ?E83.51 - Hypocalcemia (ICD-10) Obesity ?E66.9 - Obesity, unspecified (ICD-10) Reducible umbilical hernia ?K42.9 - Umbilical hernia without obstruction or gangrene (ICD-10) Surgical History (Updated 10/09/22 @ 00:41 by Jennifer Trejo) H/O: hysterectomy ?Z90.710 - Acquired absence of both cervix and uterus (ICD-10) History of cholecystectomy ?Z90.49 - Acquired absence of other specified parts of digestive tract (ICD- 10) Family History (Updated 10/09/22 @ 00:43 by Jennifer Trejo) Family/Other Family history of CHF (congestive heart failure) Family history of COPD (chronic obstructive pulmonary disease) Family history of hypertension Social History Smoking status: Never smoker Second hand tobacco smoke exposure: No Non-prescribed substance use: denies use Previous occupational history: retired Known occupational exposures/hazards: Yes Highest level of school completed/degree received: some college, no degree Are you now , , , , never or living with a partner: In a typical week, how many times do you talk on the telephone with family, friends, or neighbors: 3 or more times per week How often do you get together with friends or relatives: 3 or more times per week How often do you attend rastafari or nondenominational services: 1-3 times per year Do you belong to any clubs or organizations such as rastafari groups unions, [employer] or athleQbaka groups, or school groups: no Total score: 1 Score interpretation: A score of less than or equal to 1 indicates the most socially isolated. Little interest or pleasure in doing things: not at all Feeling down, depressed, or hopeless: not at all Feel stressed/tense/nervous/anxious/difficulty sleeping: not at all Due to disability, difficulty making decisions: No Do you think of yourself as: straight/heterosexual Gender Identity: female Meds Home Medications and Allergies Home Medications Medication Instructions Recorded Confirmed Type albuterol sulfate 90 mcg/actuation 2 puff inhalation Q4H PRN 10/08/22 03/09/23 History aerosol inhaler (Ventolin HFA) shortness of breath or wheezing alprazolam 1 mg tablet 1 mg PO TID PRN anxiety 10/08/22 03/09/23 History apixaban 5 mg tablet (Eliquis) 5 mg PO BID 10/08/22 03/09/23 History brexpiprazole 1 mg tablet (Rexulti) 1 mg PO QDAY 10/08/22 03/09/23 History cyclobenzaprine 10 mg tablet 10 mg PO .qhs PRN muscle spasm 10/08/22 03/09/23 History dulaglutide 0.75 mg/0.5 mL 0.75 mg subcut QWEEK high blood 10/08/22 03/09/23 History subcutaneous pen injector sugar (Trulicity) fluoxetine 40 mg capsule 40 mg PO DAILY 10/08/22 03/09/23 History magnesium oxide 400 mg (241.3 mg 400 mg PO BID 10/08/22 03/09/23 History magnesium) tablet metoprolol tartrate 50 mg tablet 50 mg PO BID 10/08/22 03/09/23 History omeprazole 40 mg capsule,delayed 40 mg PO BID 10/08/22 03/09/23 History release tizanidine 4 mg tablet 4 mg PO TID PRN muscle spasticity 10/08/22 03/09/23 History atorvastatin 20 mg tablet (Lipitor) 20 mg PO DAILY 03/09/23 03/09/23 History bumetanide 2 mg tablet 2 mg PO DAILY 03/09/23 03/09/23 History dapagliflozin propanediol 10 mg 10 mg PO DAILY 03/09/23 03/09/23 History tablet (Farxiga) estradiol 0.01% (0.1 mg/gram) 0.25 appful vaginal .2x a week 03/09/23 03/09/23 History vaginal cream (Estrace) fluticasone 250 mcg-salmeterol 50 1 inh inhalation BID 03/09/23 03/09/23 History mcg/dose blistr powdr for inhalation (Advair Diskus) insulin human U-100 NPH-regulr 20 unit subcut BID 03/09/23 03/09/23 History 70-30 mix 100 unit/mL subcutaneous susp (Humulin 70/30 U-100 Insulin) lisinopril 20 mg tablet 20 mg PO DAILY 03/09/23 03/09/23 History loratadine 10 mg tablet (Claritin) 10 mg PO DAILY 03/09/23 03/09/23 History metolazone 2.5 mg tablet 2.5 mg PO DAILY 03/09/23 03/09/23 History promethazine 25 mg tablet 25 mg PO Q6H PRN nausea and 03/09/23 03/09/23 History vomiting Allergies Allergy/AdvReac Type Severity Reaction Status Date / Time No Known Drug Allergies Allergy Verified 03/09/23 14:42 Exam Constitutional Vital Signs, click to edit/add: Last Vital Signs Temp 98 F 03/10/23 13:26 Pulse 70 03/10/23 17:44 Resp 20 03/10/23 13:26 BP 99/61 03/10/23 13:26 Pulse Ox 94 L 03/10/23 13:26 O2 Del Method Nasal Cannula 03/10/23 13:26 O2 Flow Rate 3 03/10/23 10:48 Documenting provider has reviewed patient's vital signs: yes Common normals: no apparent distress and oriented x3 General appearance: cooperative and frail appearing HENMT Common normals: normocephalic and head/scalp atraumatic Head and scalp: normocephalic and atraumatic Eye Common normals: conjunctivae normal and no scleral icterus Conjunctiva: conjunctiva(e) normal Respiratory Common normals: normal respiratory effort Effort & inspection: able to speak in complete sentences Auscultation: rales Cardio Common normals: no JVD, S1 normal heart sound and S2 normal heart sound Rate: regular rate Heart sounds: S1 normal and S2 normal GI Common normals: Normal to inspection, nondistended, normoactive bowel sounds present, soft to palpation, non-tender and no hepatosplenomegaly Palpation: soft and no hepatosplenomegaly Extremity Common normals: no clubbing, cyanosis or edema Neuro Common normals: oriented x3, moves all extremities and no focal motor deficits Psych Common normals: mental status grossly normal, denies hallucinations, denies homicidal ideation and denies suicidal ideation Results Labs Labs: Short CBC 03/10/23 03/10/23 Range/Units 04:36 14:02 WBC 9.2 (4.0-11.0) 10^3/uL Hgb 7.0 L 7.6 L (12.0-16.0) g/dL Hct 21.7 L* 22.9 L* (36.0-48.0) % Plt Count 164 (150-450) 10^3/uL BMP 03/10/23 03/10/23 04:36 14:02 Sodium 133 L 136 Potassium 2.7 L* 3.4 L Chloride 94 L 96 L Carbon Dioxide 29.4 27.6 BUN 78.0 H* 71.0 H Creatinine 3.75 H 3.41 H Glucose 88 120 H Calcium 5.9 L* 5.9 L* Liver Function 03/10/23 Range/Units 04:36 Total Bilirubin 0.9 (0.2-1.0) mg/dL AST 19 (15-37) U/L ALT <14 L (14-59) U/L Alkaline Phosphatase 59 (46-116) U/L Albumin 2.4 L (3.4-5.0) g/dL Assessment and Plan Assessment and Plan (1) 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 Prior to that, a few episodes in past 2 months concerning for possible seizures with no prior hx of seizure/epilepsy. CTH - no acute pathology. MRI brain - unable to perform because of patient's inability to lay down/flat. Neurology consulted. Routine EEG ordered. Will likely need to be on Anti epileptic drugs as multiple episodes in past few months. (2) Acute kidney injury: Assessment and Plan: Baseline Cr of 1.5-1/8 Presented with Cr of 4.2 C/w gentle IV hydration. Monitor I/O. Hold bumex. Likely pre renal due to dehydration (3) Anemia due to chronic kidney disease: Assessment and Plan: Baseline Hb of 8-9. Presented with Hb of 7.1 Ordered one unit PRBC. Monitor. No active bleeding noted. On Eliquis for stroke px. C/w Eliquis for now. (4) Diarrhea in adult patient: Assessment and Plan: Suspect infectious etiology, considering recent abx use, prior hx of c diff Order Stool for C diff. No urinary symptoms - stop IV rocephin. (5) Generalized weakness: Assessment and Plan: due to dehydration, poor PO intake. Feels better than before. C/w IVF, PT/OT eval. (6) Hypocalcemia: Assessment and Plan: Started on PO calcium Check PTH. (7) (HFpEF) heart failure with preserved ejection fraction: Assessment and Plan: Appears dry on exam. Gentle IVF. Hold Bumex. (8) Chronic respiratory failure with hypoxia: Assessment and Plan: On 3 L O2 due to COPD. At baseline. Monitor. (9) Atrial fibrillation: Assessment and Plan: HR at goal. Eliquis for stroke px. C/w Lopressor. (10) CKD (chronic kidney disease) stage 3, GFR 30-59 ml/min: Assessment and Plan: P/w ELI. Monitor Cr. Hold lisinopril /bumex (11) COPD (chronic obstructive pulmonary disease): Assessment and Plan: Stable. No active wheezing noted. On 3 L O2 at baseline. C.w same. Cw home meds. (12) Diabetes: Assessment and Plan: Levemir 10 units. FSBS Aat goal. Carefully monitor to avoid hypoglycemia. SSI Qualifiers: Diabetes mellitus type: type 2 Diabetes mellitus intermediate insulin use: with watermaster use Diabetes mellitus complication status: with kidney complications Diabetes mellitus complication detail: with chronic kidney disease Chronic kidney disease stage: stage 3 (moderate) Chronic kidney disease stage 3 subtype: stage 3a (GFR 45-59) Qualified Code(s): E11.22 - Type 2 diabetes mellitus with diabetic chronic kidney disease; N18.31 - Chronic kidney disease, stage 3a; Z79.4 - long-term (current) use of insulin (13) Hypertension: Assessment and Plan: Borderline low BP. C/w Lopressor. Hold Lisinopril and Bumex (14) Depression: Assessment and Plan: Stable mood. c/w patient's home medications
[2023-03-10] MEDS: TIZANIDINE HCL 4 MG TABLET PO (20:45)
[2023-03-10] MEDS: LACTATED RINGER'S SOLUTION 1,000 ML 75 ML IV (20:45)
[2023-03-11] VITALS (21 sets, daily range): BP systolic 106–138; BP diastolic 65–83; PULSE 68–90; RESP 18–24; TEMP 36.5–36.8; O2SAT 90–96
[2023-03-11] MEDS: ACETAMINOPHEN 325 MG TABLET 650 MG PO (01:56)
[2023-03-11] MEDS: ALPRAZOLAM 1 MG TABLET PO ×2 (03:49→17:05)
[2023-03-11] MEDS: ALBUTEROL SULFATE 2.5 MG/3 ML VIAL NEB IH ×4 (04:00→20:15)
[2023-03-11 05:52] LABS: Basophils Percent Auto 0.3 % (0.2-2.0); Eosinophils Absolute Auto 0.2 10^3/uL (0.0-0.7); Eosinophils Percent Auto 1.3 % (0.9-7.0); Hematocrit 24.2 % (36.0-48.0); Hemoglobin 7.5 g/dL (12.0-16.0); Immature Granulocytes Abs Auto 0.14 10^3/uL (0.00-0.03); Lymphocytes Absolute Auto 1.5 10^3/uL (1.2-3.8); Lymphocytes Percent Auto 10.8 % (20.5-60.0); Mean Corpuscular Hemoglobin 29.8 pg (26.7-34.0); Mean Platelet Volume 9.5 fL (9.5-13.5); Monocytes Absolute Auto 0.6 10^3/uL (0.3-0.8); Monocytes Percent Auto 4.5 % (1.7-12.0); Neutrophils Absolute Auto 11.6 10^3/uL (1.4-6.5); Neutrophils Percent Auto 82.1 % (43.0-75.0); Platelet Count 200 10^3/uL (150-450); Red Blood Count 2.52 10^6/uL (4.20-5.40); Red Cell Distribution Width 16.4 % (11.0-15.0); White Blood Count 14.1 10^3/uL (4.0-11.0)
[2023-03-11 06:15] LABS: Alanine Aminotransferase 18 U/L (14-59); Albumin Globulin Ratio 0.6; Albumin Level 2.5 g/dL (3.4-5.0); Alkaline Phosphatase 57 U/L (46-116); Anion Gap 14.2; Aspartate Amino Transferase 20 U/L (15-37); BUN Creatinine Ratio 19.9; Bilirubin Total 0.4 mg/dL (0.2-1.0); Calcium 6.2 mg/dL (8.5-10.1); Carbon Dioxide 26.2 mmol/L (21.0-32.0); Chloride 99 mmol/L (98-107); Estimated GFR (African America 17 (>=60); Estimated GFR (Non-African Ame 14 (>=60); Globulin 4.2 g/dL; Glucose 133 mg/dL (74-106); Potassium 3.4 mmol/L (3.5-5.1); Sodium 136 mmol/L (136-145); Total Protein 6.7 g/dL (6.4-8.2)
[2023-03-11] MEDS: MAGNESIUM OXIDE 400 MG TABLET PO ×2 (09:40→21:10)
[2023-03-11] MEDS: APIXABAN 5 MG TABLET PO ×2 (09:40→21:10)
[2023-03-11] MEDS: CALCIUM CARBONATE 600 MG TABLET PO ×2 (09:40→21:10)
[2023-03-11] MEDS: FLUOXETINE HCL 20 MG CAPSULE 40 MG PO (09:40)
[2023-03-11] MEDS: ATORVASTATIN CALCIUM 20 MG TABLET PO (09:40)
[2023-03-11] MEDS: TIZANIDINE HCL 4 MG TABLET PO (09:40)
[2023-03-11] MEDS: ONDANSETRON PF 4 MG/2 ML VIAL IV (09:40)
[2023-03-11] MEDS: OMEPRAZOLE 40 MG CAPSULE.DR PO ×2 (09:40→21:10)
[2023-03-11] MEDS: METOPROLOL TARTRATE 50 MG TABLET PO ×2 (09:41→21:10)
[2023-03-11] MEDS: LACTATED RINGER'S SOLUTION 1,000 ML 75 ML IV (09:42)
[2023-03-11] MEDS: POTASSIUM CHLORIDE 10 MEQ ER TABLET 40 MEQ PO (09:42)
--- NOTE | 2023-03-11 10:04 | CM.NOTE ---
Talked with pt about PT recommendations for pt, skilled therapy at discharge. Pt refuses to go skilled, pt states I have had too many bad experiences. Pt lives with daughter and has [facility]. Pt's plan is to return to daughter's home and continue with HH services. Pt also has home oxygen.
[2023-03-11] MEDS: BUDESONIDE 0.5 MG/2 ML AMPULE NEB IH ×2 (11:01→20:15)
--- NOTE | 2023-03-11 11:26 | PT.DAILY ---
Physical Therapy Daily Note PT Daily Note/Assess Start: 03/11/23 11:22 Freq: Status: Active Protocol: Document 03/11/23 11:22 STACY (Rec: 03/11/23 11:26 STACY [id number]) Physical Therapy Daily Note/Assessment Time In/Time Out Time In 10:40 Time Out 10:51 Pain In Pain N/A Pain Out Pain N/A Subjective Subjective Pt sitting on commode upon arrival. Min pain in small of her back. Agrees to PT. Therapeutic Activity Time Therapeutic Activity Minutes (minutes) 10 Therapeutic Activity Units 1 Therapeutic Activity Treatment Chair Transfer Ability Contact Guard Assist Therapeutic Activity Comments Pt sit>stand from BS commode CGA. Static standing at RW for 3 min while pericare performed by therapist. Pt then amb 40' in room with RW, CGA with assist for IV pole and O2 lines. Pt performs sit> supine transfer SUP. Refuses further activity because she needs to catch her breath. SpO2 92%. Remains supine with call light in reach and needs met. Total Physical Therapy Time Total Therapy Minutes 10 Total Physical Therapy Units 1 Summary Daily Note Summary Improved gait duration/ distance today but does become SOB.
--- NOTE | 2023-03-11 11:59 | P.IMPN_ITS ---
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 Waiting for report. Tele neurology consult - neurology does not think patient had a seizure. I am not sure if they had the full extent of events transpired. Continue to monitor and will d/c neurology after EEG report is avaialable for review (2) Acute kidney injury: Assessment and Plan: due to Poor PO intake. Diarrhea resolved. Still has nausea and poor intake. On IVF, Cr slowly improving. C/w same. Monitor UO, Cr (3) Anemia due to chronic kidney disease: Assessment and Plan: Required one unit PRBC. Hb stable. No active bleeding. (4) Diarrhea in adult patient: Assessment and Plan: Resolved. Could not get stool sample for testing. Continues to have abdominal discomfort, nausea and poor PO intake. Order CT abd to assess the etiology for her symptoms (5) Generalized weakness: Assessment and Plan: Feeling better but still weak and tired. PT/OT eval (6) Hypocalcemia: Assessment and Plan: Improved. Cw PO Calcium (7) (HFpEF) heart failure with preserved ejection fraction: Assessment and Plan: Dehydrated on exam. On IVF. (8) Chronic respiratory failure with hypoxia: Assessment and Plan: Due to COPD, Pum HTN Stable. Monitor. (9) Atrial fibrillation: Assessment and Plan: In NSR. Monitor. Eliquis for AC. (10) CKD (chronic kidney disease) stage 3, GFR 30-59 ml/min: Assessment and Plan: P/w ELI. Lisinopril on hold C/w IVF. (11) COPD (chronic obstructive pulmonary disease): Assessment and Plan: Stable. No wheezing on exam. Monitor. (12) Diabetes: Assessment and Plan: FSBS at goal. C/w lantus, SSI Qualifiers: Diabetes mellitus type: type 2 Diabetes mellitus technician terminal and repeater insulin use: with technician terminal and repeater use Diabetes mellitus complication status: with kidney complications Diabetes mellitus complication detail: with chronic kidney disease Chronic kidney disease stage: stage 3 (moderate) Chronic kidney disease stage 3 subtype: stage 3a (GFR 45-59) Qualified Code(s): E11.22 - Type 2 diabetes mellitus with diabetic chronic kidney disease; N18.31 - Chronic kidney disease, stage 3a; Z79.4 - bed bug exterminator (current) use of insulin (13) Hypertension: Assessment and Plan: Stable. Lisinopril on hold. (14) Depression: Assessment and Plan: C/w prozac and rexulti. Stable. Plan Needs continued IV hydration, monitoring of renal function. CT abd ordered. Awaiting EEG report Internal Medicine - PN: Subj Subjective Interval history: Seen and examined. Continues to feel nauseous. Diarrhea resolved. Has abdominal discomfort. Patient did not eat her breakfast and dinner due to nausea. No events overnight. Exam Constitutional Vital Signs, click to edit/add: Last Vital Signs Temp 98.1 F 03/11/23 03:57 Pulse 85 03/11/23 11:56 Resp 20 03/11/23 04:10 BP 138/83 03/11/23 03:57 Pulse Ox 92 L 03/11/23 11:05 O2 Del Method Nasal Cannula 03/11/23 11:05 O2 Flow Rate 3 03/11/23 11:05 Documenting provider has reviewed patient's vital signs: yes Common normals: no apparent distress and oriented x3 General appearance: cooperative and frail appearing HENND Common normals: normocephalic and head/scalp atraumatic Head and scalp: normocephalic and atraumatic Eye Common normals: conjunctivae normal and no scleral icterus Conjunctiva: conjunctiva(e) normal Respiratory Common normals: normal respiratory effort Effort & inspection: able to speak in complete sentences Auscultation: rales Cardio Common normals: no JVD, S1 normal heart sound and S2 normal heart sound Rate: regular rate Heart sounds: S1 normal and S2 normal GI Common normals: Normal to inspection, nondistended, normoactive bowel sounds present, soft to palpation, non-tender and no hepatosplenomegaly Palpation: soft and no hepatosplenomegaly Other: large incisonal hernia present Extremity Common normals: no clubbing, cyanosis or edema Neuro Common normals: oriented x3, moves all extremities and no focal motor deficits Psych Common normals: mental status grossly normal, denies hallucinations, denies homicidal ideation and denies suicidal ideation Internal Medicine - PN: Obj Da Labs Labs: Laboratory Results - last 24 hr 03/10/23 03/11/23 14:02 05:08 WBC 14.1 H RBC 2.52 L Hgb 7.6 L 7.5 L Hct 22.9 L* 24.2 L MCV 96.0 MCH 29.8 MCHC 31.0 RDW 16.4 H Plt Count 200 MPV 9.5 Neut % (Auto) 82.1 H Lymph % (Auto) 10.8 L [place] % (Auto) 4.5 Eos % (Auto) 1.3 Baso % (Auto) 0.3 Neut # (Auto) 11.6 H Lymph # (Auto) 1.5 [place] # (Auto) 0.6 Eos # (Auto) 0.2 Baso # (Auto) 0.0 Abs Immat Gran (auto) 0.14 H Imm/Tot Granulo (auto) 1.0 H Sodium 136 136 Potassium 3.4 L 3.4 L Chloride 96 L 99 Carbon Dioxide 27.6 26.2 Anion Gap 15.8 14.2 BUN 71.0 H 63.0 H Creatinine 3.41 H 3.16 H Est GFR ( Amer) 16 L 17 L Est GFR (Non-Af Amer) 13 L 14 L BUN/Creatinine Ratio 20.8 19.9 Glucose 120 H 133 H Calcium 5.9 L* 6.2 L Total Bilirubin 0.4 AST 20 ALT 18 Alkaline Phosphatase 57 Total Protein 6.7 Albumin 2.5 L Globulin 4.2 Albumin/Globulin Ratio 0.6 Urinary Catheter Management Urinary Catheter Management Urethral: Cath placed during this visit: yes Urethral indwelling: No Reason for continuing: acute urinary retention Insertion date: 03/09/23 Insertion time: 15:38
--- NOTE | 2023-03-11 11:59 | CT_ITS ---
[address] [address] Patient Name: MARTIN HAGEN MRN: [id number] date: 1950 Sex: F Assigned Patient Location: [place] Current Patient Location: [place] Accession/Order Number: [id number] Exam Date: 03/11/2023 12:17 Report Date: 03/11/2023 13:16 At the request of: SHAIKH MARGARITA Procedure: CT abdomen pelvis wo con EXAMINATION: CT abdomen pelvis wo con HISTORY: abdominal pain , nausea COMPARISON: CT abdomen pelvis 05/05/2022 TECHNIQUE: Axial, Coronal, and Sagittal images were obtained without and/or with IV contrast as indicated by examination type. Dose reduction techniques were achieved by using automated exposure control and/or adjustment of mA and/or kV according to patient size and/or use of iterative reconstruction technique. FINDINGS: LUNG BASES: Bilateral pleural effusions, 1.5 cm in thickness on right, 2.8 cm on left. Mild passive atelectasis versus infiltrates within posterior lung bases. Bilateral bronchiectasis. LIVER: No enlargement, atrophy, suspicious density, or significant focal lesion. BILIARY: Cholecystectomy. PANCREAS: No lesion, fluid collection, or abnormal duct dilatation. SPLEEN: No enlargement or focal lesion. ADRENALS: Bilateral adrenal masses, 4.7 cm on right, 3.3 cm on left. KIDNEYS: No mass, obstruction, or calcification. BOWEL/MESENTERY: Prior small bowel-small bowel anastomosis. Fluid-filled loops of small bowel. No visible mass, obstruction, or bowel wall thickening. Numerous diverticula involving descending and sigmoid colon without acute inflammatory changes. AORTA/VASCULAR: No aneurysm or dissection. RETROPERITONEUM: No mass or adenopathy. LYMPH NODES: No adenopathy. URINARY BLADDER: Empty with Kim catheter in place. PELVIC ORGANS: Hysterectomy. ABDOMINAL WALL: Eventration of the right anterior abdominal wall with outpouching containing fat and small bowel; no defined hernia sac. BONES: Stable mild compression fracture of L1. Multilevel marked degenerative disc disease and moderate degenerative facet arthropathy. OTHER: Negative. CT/CT abdomen pelvis wo con IMPRESSION: 1. Small to moderate bilateral pleural effusions and bibasilar atelectasis versus infiltrates. 2. Bilateral adrenal masses. These have been stable, but the right adrenal mass. History of increased slightly in size, although this could be due to slightly different rotation. Both adrenal masses contain trace amounts of fat which favor benign etiology, but consider CT imaging of the abdomen using adrenal gland protocol for further evaluation. 3. Marked diverticulosis of distal colon without convincing acute inflammatory changes. Fluid-filled loops of small bowel without obstruction or appreciable inflammatory changes. 4. Stable L1 mild compression fracture. Grossly stable multilevel marked degenerative changes of lumbar spine. Electronically authenticated by: ANITA KEYS Date: 03/11/2023 13:16
--- NOTE | 2023-03-11 12:01 | CM.NOTE ---
Rounded with Dr. Moran this AM. Two ladies in room identified themselves as patient's daughters. Dr. Moran spent over 15 minutes plus in the room discussing plan of care with the daughters and answering all of their questions. No discharge planned for today.
[2023-03-11 12:12] LABS: Transferrin 188 mg/dL (192-364)
--- NOTE | 2023-03-11 14:22 | CM.NOTE ---
Pt requesting Living Will packet. Packet given to pt and she will call when ready to complete or with any questions.
[2023-03-11] MEDS: OXYCODONE HCL 5 MG TABLET PO (17:05)
[2023-03-11] MEDS: CYCLOBENZAPRINE HCL 10 MG TABLET PO (21:17)
[2023-03-12] VITALS (26 sets, daily range): BP systolic 98–121; BP diastolic 63–70; PULSE 73–90; RESP 16–206; TEMP 36.1–37.3; O2SAT 93–98
[2023-03-12] MEDS: ALPRAZOLAM 1 MG TABLET PO (02:23)
[2023-03-12] MEDS: ALBUTEROL SULFATE 2.5 MG/3 ML VIAL NEB IH ×4 (04:15→20:06)
[2023-03-12 05:41] LABS: Basophils Percent Auto 0.2 % (0.2-2.0); Eosinophils Percent Auto 0.3 % (0.9-7.0); Immature Granulocytes Abs Auto 0.07 10^3/uL (0.00-0.03); Immature Granulocytes Pct Auto 0.7 % (0.0-0.5); Lymphocytes Absolute Auto 1.7 10^3/uL (1.2-3.8); Lymphocytes Percent Auto 16.8 % (20.5-60.0); Mean Corpuscular HGB Conc 31.1 g/dL (29.9-35.2); Mean Corpuscular Hemoglobin 29.6 pg (26.7-34.0); Mean Corpuscular Volume 95.1 fL (81.0-99.0); Mean Platelet Volume 9.4 fL (9.5-13.5); Monocytes Absolute Auto 0.5 10^3/uL (0.3-0.8); Monocytes Percent Auto 4.8 % (1.7-12.0); Neutrophils Absolute Auto 7.7 10^3/uL (1.4-6.5); Neutrophils Percent Auto 77.2 % (43.0-75.0); Platelet Count 162 10^3/uL (150-450); Red Blood Count 2.06 10^6/uL (4.20-5.40); Red Cell Distribution Width 15.9 % (11.0-15.0)
[2023-03-12 06:01] LABS: Alanine Aminotransferase <6 U/L (14-59); Albumin Globulin Ratio 0.6; Albumin Level 2.1 g/dL (3.4-5.0); Alkaline Phosphatase 45 U/L (46-116); Anion Gap 10.7; Aspartate Amino Transferase 19 U/L (15-37); BUN Creatinine Ratio 20.3; Bilirubin Total 0.5 mg/dL (0.2-1.0); Calcium 6.1 mg/dL (8.5-10.1); Carbon Dioxide 27.2 mmol/L (21.0-32.0); Chloride 101 mmol/L (98-107); Estimated GFR (African America 24 (>=60); Estimated GFR (Non-African Ame 20 (>=60); Globulin 3.8 g/dL; Glucose 113 mg/dL (74-106); Potassium 3.9 mmol/L (3.5-5.1); Sodium 135 mmol/L (136-145); Total Protein 5.9 g/dL (6.4-8.2)
[2023-03-12 06:10] LABS: Hematocrit 19.6 % (36.0-48.0); Hemoglobin 6.1 g/dL (12.0-16.0)
[2023-03-12] MEDS: FLUOXETINE HCL 20 MG CAPSULE 40 MG PO (09:32)
[2023-03-12] MEDS: MAGNESIUM OXIDE 400 MG TABLET PO ×2 (09:32→21:01)
[2023-03-12] MEDS: METOPROLOL TARTRATE 50 MG TABLET PO ×2 (09:33→21:01)
[2023-03-12] MEDS: OMEPRAZOLE 40 MG CAPSULE.DR PO ×2 (09:33→21:01)
[2023-03-12] MEDS: ATORVASTATIN CALCIUM 20 MG TABLET PO (09:33)
[2023-03-12] MEDS: CALCIUM CARBONATE 600 MG TABLET PO ×2 (09:33→21:01)
[2023-03-12] MEDS: APIXABAN 5 MG TABLET PO (09:33)
[2023-03-12] MEDS: OXYCODONE HCL 5 MG TABLET PO (09:33)
--- NOTE | 2023-03-12 10:49 | PT.DAILY ---
Physical Therapy Daily Note PT Daily Note/Assess Start: 03/11/23 11:22 Freq: Status: Active Protocol: Document 03/12/23 10:45 STACY (Rec: 03/12/23 10:49 STACY [id number]) Physical Therapy Daily Note/Assessment Time In/Time Out Time In 09:50 Time Out 10:00 Pain In Pain N/A Pain Out Pain N/A Subjective Subjective Pt sitting EOB upon arrival. O2 thru NC SPO2 99% prior to activity. Therapeutic Exercise Time Therapeutic Exercise Minutes (minutes) 2 Therapeutic Exercise Units 0 Therapeutic Exercise Treatment Therapeutic Exercise Treatment Standing marches, HR and HS curls 5x ea then needed seated rest break due to fatigue/SOB . Spo2 86% with this activity but quickly recovers to 94% within 15 sec seated at EOB. Therapeutic Activity Time Therapeutic Activity Minutes (minutes) 7 Therapeutic Activity Units 1 Therapeutic Activity Treatment Chair Transfer Ability Standby Assistance Therapeutic Activity Comments Sit>stand from EOB SBA. Pt amb 40' in room then needs to sit in BS chair to rest. Spo2 90% with this and recovers to 95% within 10 sec. Pt needs reminders to avoid holding breath with amb/ex. Remains in BS chair upon completion with Dr. Moran present. Total Physical Therapy Time Total Therapy Minutes 9 Total Physical Therapy Units 1 Summary Daily Note Summary SOB/fatigue cont to limit activity. O2 levels did drop with standing ex today.
[2023-03-12] MEDS: BUDESONIDE 0.5 MG/2 ML AMPULE NEB IH ×2 (11:32→20:06)
[2023-03-12] MEDS: LACTATED RINGER'S SOLUTION 1,000 ML 75 ML IV (11:38)
--- NOTE | 2023-03-12 12:05 | CM.NOTE ---
Rounds made with Dr. Moran. Ordered PRBCs today. No plan for discharge today.
[2023-03-12 12:13] LABS: PTH, Intact 166 pg/mL (15-65)
--- NOTE | 2023-03-12 13:00 | P.IMPN_ITS ---
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 Waiting for report. Tele neurology consult - neurology does not think patient had a seizure. I am not sure if they had the full extent of events transpired. Continue to monitor and will d/c neurology after EEG report is avaialable for review (2) Acute kidney injury: Assessment and Plan: due to Poor PO intake. Diarrhea resolved. Still has nausea and poor intake. On IVF, Cr slowly improving. C/w same. Monitor UO, Cr (3) Anemia due to chronic kidney disease: Assessment and Plan: Required one unit PRBC on admission. Hb down to 6.1 today. Her baseline is 8-9. Ordered unit PRBC. Had normal GI w/u last year. Hold Eliquis for now as continues to have low Hb count. Defer GI w/u for now unless acute/overt/persistently low Hb despite transfusion. (4) Diarrhea in adult patient: Assessment and Plan: Resolved. Could not get stool sample for testing. GI symptoms resolved now. CT abd pelvis - no acute pathology noted. Adrenal nodules - outpatient f/u (5) Generalized weakness: Assessment and Plan: Feeling better but still weak and tired. PT/OT eval (6) Hypocalcemia: Assessment and Plan: Improved. Cw PO Calcium (7) (HFpEF) heart failure with preserved ejection fraction: Assessment and Plan: Dehydrated on exam. On IVF. (8) Chronic respiratory failure with hypoxia: Assessment and Plan: Due to COPD, Pum HTN Stable. Monitor. (9) Atrial fibrillation: Assessment and Plan: In NSR. Monitor. Eliquis now on hold. (10) CKD (chronic kidney disease) stage 3, GFR 30-59 ml/min: Assessment and Plan: P/w ELI. Lisinopril on hold C/w IVF. (11) COPD (chronic obstructive pulmonary disease): Assessment and Plan: Stable. No wheezing on exam. Monitor. (12) Diabetes: Assessment and Plan: FSBS at goal. 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 Lisinopril on hold. (14) Depression: Assessment and Plan: C/w prozac and rexulti. Stable. (15) Adrenal adenoma: Assessment and Plan: More or less stable. outpatient f/u Plan Needs continued IV hydration, monitoring of renal function. CT abd ordered. Awaiting EEG report Internal Medicine - PN: Subj Subjective Interval history: Seen and examined. Doing well today. Toelrated PO diet. Denies nausea, vomiting. Hb down to 6 on morning labs. no active bleeding noted. Exam Constitutional Vital Signs, click to edit/add: Last Vital Signs Temp 98.5 F 03/12/23 12:18 Pulse 78 03/12/23 12:24 Resp 18 03/12/23 12:18 BP 98/63 03/12/23 12:18 Pulse Ox 97 03/12/23 12:18 O2 Del Method Nasal Cannula 03/12/23 12:18 O2 Flow Rate 3 03/12/23 12:18 Documenting provider has reviewed patient's vital signs: yes Common normals: no apparent distress and oriented x3 General appearance: cooperative and frail appearing Respiratory Common normals: normal respiratory effort Effort & inspection: able to speak in complete sentences Cardio Common normals: no JVD, S1 normal heart sound and S2 normal heart sound Rate: regular rate Heart sounds: S1 normal and S2 normal GI Common normals: Normal to inspection, nondistended, normoactive bowel sounds present, soft to palpation, non-tender and no hepatosplenomegaly Palpation: soft and no hepatosplenomegaly Other: large incisonal hernia present Extremity Common normals: no clubbing, cyanosis or edema Neuro Common normals: oriented x3, moves all extremities and no focal motor deficits Psych Common normals: mental status grossly normal, denies hallucinations, denies homicidal ideation and denies suicidal ideation Internal Medicine - PN: Obj Da Labs Labs: Laboratory Results - last 24 hr 03/09/23 03/11/23 03/12/23 17:28 05:08 05:10 WBC 10.0 RBC 2.06 L Hgb 6.1 L* Hct 19.6 L* MCV 95.1 MCH 29.6 MCHC 31.1 RDW 15.9 H Plt Count 162 MPV 9.4 L Neut % (Auto) 77.2 H Lymph % (Auto) 16.8 L [place] % (Auto) 4.8 Eos % (Auto) 0.3 L Baso % (Auto) 0.2 Neut # (Auto) 7.7 H Lymph # (Auto) 1.7 [place] # (Auto) 0.5 Eos # (Auto) 0.0 Baso # (Auto) 0.0 Abs Immat Gran (auto) 0.07 H Imm/Tot Granulo (auto) 0.7 H Sodium 135 L Potassium 3.9 Chloride 101 Carbon Dioxide 27.2 Anion Gap 10.7 BUN 49.0 H Creatinine 2.41 H Est GFR ( Amer) 24 L Est GFR (Non-Af Amer) 20 L BUN/Creatinine Ratio 20.3 Glucose 113 H Calcium 6.1 L Total Bilirubin 0.5 AST 19 ALT <6 L Alkaline Phosphatase 45 L Total Protein 5.9 L Albumin 2.1 L Globulin 3.8 Albumin/Globulin Ratio 0.6 PTH Intact 166 H Blood Type O Positive Antibody Screen Negative Crossmatch See Detail Urinary Catheter Management Urinary Catheter Management Urethral: Cath placed during this visit: yes Urethral indwelling: No Reason for continuing: acute urinary retention Insertion date: 03/09/23 Insertion time: 15:38
[2023-03-12 16:16] LABS: Basophils Percent Auto 0.2 % (0.2-2.0); Eosinophils Absolute Auto 0.2 10^3/uL (0.0-0.7); Eosinophils Percent Auto 1.9 % (0.9-7.0); Hemoglobin 7.9 g/dL (12.0-16.0); Immature Granulocytes Abs Auto 0.05 10^3/uL (0.00-0.03); Immature Granulocytes Pct Auto 0.5 % (0.0-0.5); Lymphocytes Absolute Auto 1.8 10^3/uL (1.2-3.8); Lymphocytes Percent Auto 19.7 % (20.5-60.0); Mean Corpuscular HGB Conc 33.1 g/dL (29.9-35.2); Mean Corpuscular Hemoglobin 30.7 pg (26.7-34.0); Mean Platelet Volume 9.3 fL (9.5-13.5); Monocytes Absolute Auto 0.7 10^3/uL (0.3-0.8); Monocytes Percent Auto 7.1 % (1.7-12.0); Neutrophils Absolute Auto 6.6 10^3/uL (1.4-6.5); Neutrophils Percent Auto 70.6 % (43.0-75.0); Platelet Count 146 10^3/uL (150-450); Red Blood Count 2.57 10^6/uL (4.20-5.40); Red Cell Distribution Width 15.6 % (11.0-15.0); White Blood Count 9.3 10^3/uL (4.0-11.0)
[2023-03-12 16:25] LABS: Hematocrit 23.9 % (36.0-48.0)
[2023-03-12] MEDS: ONDANSETRON PF 4 MG/2 ML VIAL IV (20:18)
[2023-03-13] VITALS (19 sets, daily range): BP systolic 132; BP diastolic 77–87; PULSE 69–88; RESP 18–22; TEMP 36.7–36.8; O2SAT 96–99
[2023-03-13] MEDS: LACTATED RINGER'S SOLUTION 1,000 ML 75 ML IV ×2 (00:13→15:18)
[2023-03-13] MEDS: ALBUTEROL SULFATE 2.5 MG/3 ML VIAL NEB IH ×4 (04:40→20:38)
[2023-03-13 05:21] LABS: Basophils Percent Auto 0.3 % (0.2-2.0); Eosinophils Absolute Auto 0.3 10^3/uL (0.0-0.7); Eosinophils Percent Auto 3.4 % (0.9-7.0); Hemoglobin 7.5 g/dL (12.0-16.0); Immature Granulocytes Abs Auto 0.06 10^3/uL (0.00-0.03); Immature Granulocytes Pct Auto 0.6 % (0.0-0.5); Lymphocytes Absolute Auto 1.7 10^3/uL (1.2-3.8); Lymphocytes Percent Auto 17.5 % (20.5-60.0); Mean Corpuscular HGB Conc 31.4 g/dL (29.9-35.2); Mean Corpuscular Hemoglobin 29.8 pg (26.7-34.0); Mean Corpuscular Volume 94.8 fL (81.0-99.0); Mean Platelet Volume 9.5 fL (9.5-13.5); Monocytes Absolute Auto 0.6 10^3/uL (0.3-0.8); Monocytes Percent Auto 6.2 % (1.7-12.0); Neutrophils Absolute Auto 6.9 10^3/uL (1.4-6.5); Platelet Count 176 10^3/uL (150-450); Red Blood Count 2.52 10^6/uL (4.20-5.40); White Blood Count 9.6 10^3/uL (4.0-11.0)
[2023-03-13 05:34] LABS: Alanine Aminotransferase 17 U/L (14-59); Albumin Globulin Ratio 0.6; Albumin Level 2.2 g/dL (3.4-5.0); Alkaline Phosphatase 46 U/L (46-116); Anion Gap 12.9; Aspartate Amino Transferase 20 U/L (15-37); BUN Creatinine Ratio 18.7; Bilirubin Total 0.6 mg/dL (0.2-1.0); Chloride 102 mmol/L (98-107); Estimated GFR (African America 25 (>=60); Estimated GFR (Non-African Ame 21 (>=60); Globulin 3.8 g/dL; Glucose 105 mg/dL (74-106); Potassium 3.9 mmol/L (3.5-5.1); Sodium 139 mmol/L (136-145)
[2023-03-13 05:48] LABS: Hematocrit 23.9 % (36.0-48.0)
[2023-03-13 05:49] LABS: Calcium 5.8 mg/dL (8.5-10.1)
[2023-03-13] MEDS: ATORVASTATIN CALCIUM 20 MG TABLET PO (08:23)
[2023-03-13] MEDS: CALCIUM CARBONATE 600 MG TABLET PO ×2 (08:23→21:02)
[2023-03-13] MEDS: FLUOXETINE HCL 20 MG CAPSULE 40 MG PO (08:23)
[2023-03-13] MEDS: MAGNESIUM OXIDE 400 MG TABLET PO ×2 (08:23→21:02)
[2023-03-13] MEDS: METOPROLOL TARTRATE 50 MG TABLET PO ×2 (08:23→21:02)
[2023-03-13] MEDS: OMEPRAZOLE 40 MG CAPSULE.DR PO ×2 (08:24→21:01)
--- NOTE | 2023-03-13 09:41 | REH.PTDLY ---
Physical Therapy Daily Note PT Daily Note/Assess Start: 03/11/23 11:22 Freq: Status: Active Protocol: Document 03/13/23 09:37 FERNANDO (Rec: 03/13/23 09:41 FERNANDO [id number]) Physical Therapy Daily Note/Assessment Time In 09:25 Time Out 09:35 Subjective Pt up in chair upon arrival and at first declines therapy. Reports she did not sleep one bit last night. Ordered pt's breakfast and then pt agrees to participate in seated exs. Therapeutic Exercise Minutes (minutes) 8 Therapeutic Exercise Units 1 Therapeutic Exercise Treatment Instructed in B LE seated exs 10-15x ea with AP, LAQ, marching, hip abd, and hip add squeezes. Pt has mild SOB with add squeezes. Tried persuading pt to participate in standing exs chair side with RW, but declines. Also declines performing sit to stand transfers and gait. Total Therapy Minutes 8 Total Physical Therapy Units 1 Daily Note Summary Pt participated in seated exs for improved strength, but declines all other levels of ex or gait. Pt reports she is tired from not sleeping all night and does not want to do anything else. Pt maintains sitting up in chair post rx with call light at hand.
--- NOTE | 2023-03-13 09:42 | PM.PN ---
Progress Note: Subjective Subjective Interval history: patient reports that she is feeling better today, she her diarrhea has slowed down and she is only complained of some slight nausea but no vomiting. She denies any fevers or chills. Her daughter is also at bedside at the time of exam this morning and notes that she does have a history of clostridium difficile at least 2-3 other times. She is also been treated for some chronic urinary tract infections recently and anytime she is on an antibiotic it seems that she gets C. difficile. I discussed with the patient and her daughter the positive C. difficile culture and a positive urine culture for E faecalis and I plan to treat them both with oral vancomycin. Her iron level was also low at twenty-eight and discussed giving her an iron infusion today as I know she has received two units of packed red blood cells. We discussed upper endoscopy and colonoscopy in the future but given acute infectious process would likely hold off during this admission unless it becomes and an aunt. But there is no doubt the patient will need outpatient gastroenterology follow-up. Patient also has a history of atrial fibrillation, chronic obstructive pulmonary disease and type 2 diabetes and she is Eliquis which has been held secondary to her anemia. Exam Narrative Exam Narrative: General: Patient is alert, and oriented to person, place and time with normal affect, proper hygiene Skin: no visible rashes, or ulcers Head: atraumatic, acephalic Eyes: PERRLA, no nystagmus present, conjunctiva clear, no scleral icterus Ears: normal gross auditory acuity Neck: no masses palpated, normal thyroid, no JVD or audible carotid bruits Heart: Normal rate and rhythm, no murmurs/rubs/gallops Lungs: no audible wheezes, crackles and normal breath sounds all lung ramirez Abdomen: Normal audible bowel sounds, no distension, No palpable masses, no organomegaly, no rebound/guarding/ or rigidity Musculoskeletal: no swelling bilateral lower extremities Neuro: CN II-X grossly intact Constitutional Vital Signs, click to edit/add: Last Vital Signs Temp 98.2 F 03/13/23 05:22 Pulse 86 03/13/23 07:56 Resp 18 03/13/23 05:22 BP 132/77 03/13/23 05:22 Pulse Ox 97 03/13/23 05:22 O2 Del Method Nasal Cannula 03/13/23 05:22 O2 Flow Rate 3 03/13/23 05:22 Progress Note: Objective Labs Labs: Short CBC 03/12/23 03/13/23 Range/Units 16:08 03:55 WBC 9.3 9.6 (4.0-11.0) 10^3/uL Hgb 7.9 L 7.5 L (12.0-16.0) g/dL Hct 23.9 L* 23.9 L* (36.0-48.0) % Plt Count 146 L 176 (150-450) 10^3/uL BMP 03/13/23 03:55 Sodium 139 Potassium 3.9 Chloride 102 Carbon Dioxide 28.0 BUN 43.0 H Creatinine 2.30 H Glucose 105 Calcium 5.8 L* Liver Function 03/13/23 Range/Units 03:55 Total Bilirubin 0.6 (0.2-1.0) mg/dL AST 20 (15-37) U/L ALT 17 (14-59) U/L Alkaline Phosphatase 46 (46-116) U/L Albumin 2.2 L (3.4-5.0) g/dL Progress Note: A&P Assessment and Plan (1) C. difficile diarrhea: Assessment and Plan: patient is having a recurrence of C. difficile, will place on oral vancomycin 125 mg 4 times a day ?10 days this is most likely contributing to her nausea vomiting diarrhea and many electrolyte abnormalities which may in turn have caused her seizure activity (2) UTI (urinary tract infection) due to Enterococcus: Assessment and Plan: enterococcus sensitive also to the vancomycin (3) New onset seizure without head trauma: Assessment and Plan: EEG pending, neurology felt more metabolic than underlying seizure disorder, no further episodes (4) Acute kidney injury: Assessment and Plan: improving with IV fluids creatinine was 2.30 this morning. (5) Anemia due to chronic kidney disease: Assessment and Plan: has received two units of PRBCs, iron studies also showed iron deficiency anemia we'll give iron infusion today and recheck CBC tomorrow and see if improved. will need outpatient work up with EGD, colonoscopy (6) Generalized weakness: Assessment and Plan: secondary to C. difficile and urinary tract infection (7) (HFpEF) heart failure with preserved ejection fraction: Assessment and Plan: no signs of fluid overload, will monitor IV fluids (8) Atrial fibrillation: Assessment and Plan: patient is rate controlled on home medications and holding eliquis secondary to anemia (9) CKD (chronic kidney disease) stage 3, GFR 30-59 ml/min: Assessment and Plan: improving, uncertain baseline (10) COPD (chronic obstructive pulmonary disease): Assessment and Plan: continue treatments as needed (11) Diabetes: Assessment and Plan: SSI, monitor qachs Qualifiers: Chronic kidney disease stage: stage 3 (moderate) Chronic kidney disease stage 3 subtype: stage 3a (GFR 45-59) Diabetes mellitus complication detail: with chronic kidney disease Diabetes mellitus complication status: with kidney complications Diabetes mellitus long-term insulin use: with long-term use Diabetes mellitus type: type 2 Qualified Code(s): E11.22 - Type 2 diabetes mellitus with diabetic chronic kidney disease; N18.31 - Chronic kidney disease, stage 3a; 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
[2023-03-13] MEDS: IRON SUCROSE COMPLEX 300 MG in 0.9 % SODIUM CHLORIDE 250 ML 176.667 MG IV (09:58)
[2023-03-13] MEDS: BUDESONIDE 0.5 MG/2 ML AMPULE NEB IH ×2 (11:44→20:39)
[2023-03-13] MEDS: VANCOMYCIN HCL 7,500 MG/150 ML BOTTLE 125 MG PO ×3 (12:27→21:01)
[2023-03-13] MEDS: CALCIUM CARBONATE 500 MG (200MG ELEMENTAL) TAB CHEW PO (14:45)
[2023-03-13] MEDS: ALPRAZOLAM 1 MG TABLET PO (23:48)
[2023-03-14] VITALS (26 sets, daily range): BP systolic 127–149; BP diastolic 71–80; PULSE 67–91; RESP 18–20; TEMP 36.3–36.8; O2SAT 3–98
[2023-03-14] MEDS: LACTATED RINGER'S SOLUTION 1,000 ML 75 ML IV (04:15)
[2023-03-14] MEDS: ALBUTEROL SULFATE 2.5 MG/3 ML VIAL NEB IH ×3 (04:34→20:02)
[2023-03-14] MEDS: VANCOMYCIN HCL 7,500 MG/150 ML BOTTLE 125 MG PO ×4 (05:19→21:22)
[2023-03-14 05:35] LABS: Basophils Percent Auto 0.4 % (0.2-2.0); Eosinophils Absolute Auto 0.4 10^3/uL (0.0-0.7); Eosinophils Percent Auto 4.4 % (0.9-7.0); Immature Granulocytes Abs Auto 0.04 10^3/uL (0.00-0.03); Immature Granulocytes Pct Auto 0.5 % (0.0-0.5); Lymphocytes Absolute Auto 1.5 10^3/uL (1.2-3.8); Lymphocytes Percent Auto 17.7 % (20.5-60.0); Mean Corpuscular HGB Conc 31.5 g/dL (29.9-35.2); Mean Corpuscular Volume 95.3 fL (81.0-99.0); Mean Platelet Volume 9.5 fL (9.5-13.5); Monocytes Absolute Auto 0.4 10^3/uL (0.3-0.8); Monocytes Percent Auto 5.1 % (1.7-12.0); Neutrophils Absolute Auto 5.9 10^3/uL (1.4-6.5); Neutrophils Percent Auto 71.9 % (43.0-75.0); Platelet Count 161 10^3/uL (150-450); Red Blood Count 2.33 10^6/uL (4.20-5.40); Red Cell Distribution Width 15.9 % (11.0-15.0); White Blood Count 8.2 10^3/uL (4.0-11.0)
[2023-03-14 05:44] LABS: Alanine Aminotransferase 18 U/L (14-59); Albumin Globulin Ratio 0.6; Albumin Level 2.2 g/dL (3.4-5.0); Alkaline Phosphatase 43 U/L (46-116); Anion Gap 12.9; Aspartate Amino Transferase 12 U/L (15-37); BUN Creatinine Ratio 16.4; Bilirubin Total 0.5 mg/dL (0.2-1.0); Carbon Dioxide 27.8 mmol/L (21.0-32.0); Chloride 102 mmol/L (98-107); Estimated GFR (African America 27 (>=60); Estimated GFR (Non-African Ame 23 (>=60); Globulin 3.7 g/dL; Glucose 87 mg/dL (74-106); Potassium 3.7 mmol/L (3.5-5.1); Sodium 139 mmol/L (136-145); Total Protein 5.9 g/dL (6.4-8.2)
[2023-03-14 06:05] LABS: Hematocrit 22.2 % (36.0-48.0)
--- NOTE | 2023-03-14 08:07 | P.PN_ITS ---
Progress Note: Subjective Subjective Interval history: patient reports that she is feeling better today, she said her diarrhea has stopped but her hemorrhoids have been more painful and bleeding at times. No further nausea or vomiting. She denies any fevers or chills. Hemoglobin has dropped to 7.0 this morning. Discussed that iron infusion yesterday and will give 2 units of PRBCs today. Patient reports no history of issues with transfuion before. Patient also has a history of atrial fibrillation, chronic o bstructive pulmonary disease and type 2 diabetes and she is on Eliquis which has been held secondary to her anemia. We discussed options for EGD and colonoscopy as outpatient. Exam Narrative Exam Narrative: General: Patient is alert, and oriented to person, place and time with normal affect, proper hygiene Skin: no visible rashes, or ulcers Head: atraumatic, acephalic Eyes: PERRLA, no nystagmus present, conjunctiva clear, no scleral icterus Ears: normal gross auditory acuity Neck: no masses palpated, normal thyroid, no JVD or audible carotid bruits Heart: Normal rate and rhythm, no murmurs/rubs/gallops Lungs: no audible wheezes, crackles and normal breath sounds all lung ramirez Abdomen: Normal audible bowel sounds, no distension, No palpable masses, no organomegaly, no rebound/guarding/ or rigidity Musculoskeletal: no swelling bilateral lower extremities Neuro: CN II-X grossly intact Constitutional Vital Signs, click to edit/add: Last Vital Signs Temp 97.3 F L 03/14/23 05:23 Pulse 71 03/14/23 06:00 Resp 18 03/14/23 05:23 BP 145/79 H 03/14/23 05:23 Pulse Ox 96 03/14/23 05:23 O2 Del Method Nasal Cannula 03/14/23 05:23 O2 Flow Rate 3 03/14/23 05:23 Progress Note: Objective Labs Labs: Short CBC 03/14/23 Range/Units 04:20 WBC 8.2 (4.0-11.0) 10^3/uL Hgb 7.0 L (12.0-16.0) g/dL Hct 22.2 L* (36.0-48.0) % Plt Count 161 (150-450) 10^3/uL BMP 03/14/23 04:20 Sodium 139 Potassium 3.7 Chloride 102 Carbon Dioxide 27.8 BUN 35.0 H Creatinine 2.14 H Glucose 87 Calcium 6.0 L Liver Function 03/14/23 Range/Units 04:20 Total Bilirubin 0.5 (0.2-1.0) mg/dL AST 12 L (15-37) U/L ALT 18 (14-59) U/L Alkaline Phosphatase 43 L (46-116) U/L Albumin 2.2 L (3.4-5.0) g/dL Progress Note: A&P Assessment and Plan (1) C. difficile diarrhea: Assessment and Plan: patient is having a recurrence of C. difficile, will place on oral vancomycin 125 mg 4 times a day ?10 days this is most likely contributing to her nausea vomiting diarrhea and many electrolyte abnormalities which may in turn have caused her seizure activity (2) UTI (urinary tract infection) due to Enterococcus: Assessment and Plan: enterococcus sensitive also to the vancomycin (3) New onset seizure without head trauma: Assessment and Plan: EEG pending, neurology felt more metabolic than underlying seizure disorder, no further episodes (4) Acute kidney injury: Assessment and Plan: improving with IV fluids creatinine was 2.14 this morning. stop IVF today (5) Anemia due to chronic kidney disease: Assessment and Plan: has received two units of PRBCs, iron studies also showed iron deficiency anemia had iron infusion. today 2 units PRBC's will need outpatient work up with EGD, colonoscopy, Hemorrhoids? (6) Generalized weakness: Assessment and Plan: secondary to C. difficile and urinary tract infection (7) (HFpEF) heart failure with preserved ejection fraction: Assessment and Plan: no signs of fluid overload, stop IV fluids (8) Atrial fibrillation: Assessment and Plan: patient is rate controlled on home medications and holding eliquis secondary to anemia (9) CKD (chronic kidney disease) stage 3, GFR 30-59 ml/min: Assessment and Plan: improving, uncertain baseline (10) COPD (chronic obstructive pulmonary disease): Assessment and Plan: continue treatments as needed (11) Diabetes: Assessment and Plan: SSI, monitor qachs Qualifiers: Chronic kidney disease stage: stage 3 (moderate) Chronic kidney disease stage 3 subtype: stage 3a (GFR 45-59) Diabetes mellitus complication detail: with chronic kidney disease Diabetes mellitus complication status: with kidney complications 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
[2023-03-14] MEDS: CALCIUM CARBONATE 600 MG TABLET PO ×2 (08:38→21:22)
[2023-03-14] MEDS: METOPROLOL TARTRATE 50 MG TABLET PO ×2 (08:38→21:22)
[2023-03-14] MEDS: OMEPRAZOLE 40 MG CAPSULE.DR PO ×2 (08:38→21:22)
[2023-03-14] MEDS: MAGNESIUM OXIDE 400 MG TABLET PO ×2 (08:39→21:22)
[2023-03-14] MEDS: ATORVASTATIN CALCIUM 20 MG TABLET PO (08:39)
[2023-03-14] MEDS: FLUOXETINE HCL 20 MG CAPSULE 40 MG PO (08:39)
[2023-03-14] MEDS: ACETAMINOPHEN 325 MG TABLET 650 MG PO (10:18)
[2023-03-14] MEDS: BUDESONIDE 0.5 MG/2 ML AMPULE NEB IH ×2 (10:47→20:02)
[2023-03-14 18:35] LABS: Hemoglobin 9.6 g/dL (12.0-16.0)
[2023-03-14] MEDS: OXYCODONE HCL 5 MG TABLET PO (23:59)
[2023-03-15] VITALS (13 sets, daily range): BP systolic 145–153; BP diastolic 71–83; PULSE 64–88; RESP 18–20; TEMP 36.6–36.8; O2SAT 95–98
[2023-03-15] MEDS: ONDANSETRON PF 4 MG/2 ML VIAL IV ×2 (00:55→07:54)
[2023-03-15] MEDS: ALBUTEROL SULFATE 2.5 MG/3 ML VIAL NEB IH ×2 (04:03→10:00)
[2023-03-15] MEDS: VANCOMYCIN HCL 7,500 MG/150 ML BOTTLE 125 MG PO ×2 (05:24→12:03)
[2023-03-15] MEDS: FLUOXETINE HCL 20 MG CAPSULE 40 MG PO (08:27)
[2023-03-15] MEDS: CALCIUM CARBONATE 600 MG TABLET PO (08:27)
[2023-03-15] MEDS: MAGNESIUM OXIDE 400 MG TABLET PO (08:27)
[2023-03-15] MEDS: OMEPRAZOLE 40 MG CAPSULE.DR PO (08:27)
[2023-03-15] MEDS: ATORVASTATIN CALCIUM 20 MG TABLET PO (08:28)
[2023-03-15] MEDS: ACETAMINOPHEN 325 MG TABLET 650 MG PO (08:28)
[2023-03-15] MEDS: METOPROLOL TARTRATE 50 MG TABLET PO (08:28)
[2023-03-15] MEDS: BUDESONIDE 0.5 MG/2 ML AMPULE NEB IH (10:00)
--- NOTE | 2023-03-15 10:50 | CM.NOTE ---
Rounds made with bobo Lomas for discharge to home today. Pt is active with [facility] and has home oxygen. Will send updates to [facility] and call with discharge.
--- NOTE | 2023-03-15 11:03 | P.DS_ITS ---
DS: Providers Provider Date of admission: 03/09/23 18:10 Primary care physician: BARRY RENDON Admitting clinician: Shaikh Luisa Consults: 03/09/23 18:06 Occupational Therapy Eval and Treat Routine Reason for consultation: Ambulatory dysfunction/weakness Physical Therapy Eval and Treat Routine Reason for consultation: Ambulatory dysfunction/weakness 03/10/23 11:41 Consult to TeleNeurology Routine Reason for consultation: New Onset Seziures 03/15/23 08:39 Occupational Therapy Eval and Treat Routine Reason for consultation: weakness Has provider been notified: No Physical Therapy Eval and Treat Routine Reason for consultation: weakness Has provider been notified: No Attending physician on discharge: Thalia Garza DS: Diagnosis Discharge Diagnosis (1) C. difficile diarrhea: (2) UTI (urinary tract infection) due to Enterococcus: (3) New onset seizure without head trauma: (4) Acute kidney injury: (5) Anemia due to chronic kidney disease: (6) Generalized weakness: (7) (HFpEF) heart failure with preserved ejection fraction: (8) Atrial fibrillation: (9) CKD (chronic kidney disease) stage 3, GFR 30-59 ml/min: (10) COPD (chronic obstructive pulmonary disease): (11) Diabetes: Qualifiers: Chronic kidney disease stage: stage 3 (moderate) Chronic kidney disease stage 3 subtype: stage 3a (GFR 45-59) Diabetes mellitus complication detail: with chronic kidney disease Diabetes mellitus complication status: with kidney complications Diabetes mellitus buttermaker continuous churn insulin use: with buttermaker continuous churn use Diabetes mellitus type: type 2 Qualified Code(s): E11.22 - Type 2 diabetes mellitus with diabetic chronic kidney disease; N18.31 - Chronic kidney disease, stage 3a; Z79.4 - salvage determiner (current) use of insulin (12) Hypertension: (13) Depression: (14) Hemorrhoids: DS: Summary Hospital Course Hospital Course: Patient admitted and found to have the following: (1) C. difficile diarrhea: Assessment and Plan: patient is having a recurrence of C. difficile, will place on oral vancomycin 125 mg 4 times a day ?10 days ( sent to pharmacy) this is most likely contributing to her nausea vomiting diarrhea and many electrolyte abnormalities which may in turn have caused her seizure activity, she will address with PCP to see if she needs infectious disease referral (2) UTI (urinary tract infection) due to Enterococcus: Assessment and Plan: enterococcus sensitive also to the vancomycin and Klebsiella, take and complete Vancomycin (3) New onset seizure without head trauma: Assessment and Plan: EEG pending, neurology felt more metabolic than underlying seizure disorder, no further episodes, Neurology had nothing to add. Follow up EEG with PCP. (4) Acute kidney injury: Assessment and Plan: improving with IV fluids creatinine was 2.14 this morning, recheck bmp as outpatient (5) Anemia due to chronic kidney disease: Assessment and Plan: has received three units of PRBCs, iron studies also showed iron deficiency anemia had iron infusion. hemoglobin at the time of discharge was 9.0 will need outpatient work up with EGD, colonoscopy, Hemorrhoids? (6) Generalized weakness: Assessment and Plan: secondary to C. difficile and urinary tract infection, improved. (7) (HFpEF) heart failure with preserved ejection fraction: Assessment and Plan: no signs of fluid overload, resume home medications (8) Atrial fibrillation: Assessment and Plan: patient is rate controlled on home medications resume eliquis (9) CKD (chronic kidney disease) stage 3, GFR 30-59 ml/min: Assessment and Plan: improving (10) COPD (chronic obstructive pulmonary disease): Assessment and Plan: continue treatments at home as needed and continuous oxygen. (11) Diabetes: Assessment and Plan: resume home insulin (12) Hypertension: Assessment and Plan: resume home medications (13) Depression: Assessment and Plan: resume home medications Patient reports much improvement. She will have close outpatient follow up and resume home health services. Resume home meds and home continuous oxygen. Return to the ER with any worsening signs or symptoms. Status at Discharge Functional status at discharge: uses cane/walker Overall status at discharge: patient is progressing back to baseline Time Spent with Patient Time attestation: Total time spent providing and/or coordinating discharge services: Time spent: greater than 30 minutes Exam Narrative Exam Narrative: General: Patient is alert, and oriented to person, place and time with normal affect, proper hygiene Skin: no visible rashes, or ulcers Head: atraumatic, acephalic Eyes: PERRLA, no nystagmus present, conjunctiva clear, no scleral icterus Ears: normal gross auditory acuity Neck: no masses palpated, normal thyroid, no JVD or audible carotid bruits Heart: Normal rate and rhythm, no murmurs/rubs/gallops Lungs: no audible wheezes, crackles and diminished breath sounds all lung ramirez Abdomen: Normal audible bowel sounds, no distension, No palpable masses, no organomegaly, no rebound/guarding/ or rigidity Musculoskeletal: no swelling bilateral lower extremities Neuro: CN II-X grossly intact Constitutional Vital Signs, click to edit/add: Last Vital Signs Temp 98.2 F 03/15/23 08:34 Pulse 65 03/15/23 09:59 Resp 20 03/15/23 08:34 BP 148/80 H 03/15/23 08:34 Pulse Ox 98 03/15/23 10:01 O2 Del Method Nasal Cannula 03/15/23 10:01 O2 Flow Rate 3 03/15/23 10:01 DS: Data Data Completed and Pending Labs on day of discharge: Labs from last 24 hours 03/14/23 03/14/23 18:29 08:25 Hgb 9.6 L Hct 29.0 L Blood Type O Positive Antibody Screen Negative Crossmatch See Detail Discharge Plan Discharge Disposition: Home Health Service Condition: Fair Discharge Medications: New vancomycin [Firvanq] 50 mg/mL Recon Soln 125 mg PO QID 10 Days Qty: 100 0RF Continued albuterol sulfate [Ventolin HFA] 90 mcg/actuation HFA aerosol inhaler 2 puff INHALATION Q4H PRN (Reason: shortness of breath or wheezing) Eliquis 5 mg tablet 5 mg PO BID alprazolam 1 mg tablet 1 mg PO TID PRN (Reason: anxiety) Rexulti 1 mg tablet 1 mg PO QDAY cyclobenzaprine 10 mg tablet 10 mg PO .qhs PRN (Reason: muscle spasm) Trulicity 0.75 mg/0.5 mL pen injector 0.75 mg SUBCUT QWEEK Patient Comments: Wednesday fluoxetine 40 mg capsule 40 mg PO DAILY magnesium oxide 400 mg (241.3 mg magnesium) tablet 400 mg PO BID metoprolol tartrate 50 mg tablet 50 mg PO BID omeprazole 40 mg capsule,delayed release(DR/EC) 40 mg PO BID tizanidine 4 mg tablet 4 mg PO TID PRN (Reason: muscle spasticity) bumetanide 2 mg tablet 2 mg PO DAILY Rx Instructions: Takes 2 mg in AM and 1 mg at bedtime atorvastatin [Lipitor] 20 mg tablet 20 mg PO DAILY metolazone 2.5 mg tablet 2.5 mg PO DAILY Farxiga 10 mg tablet 10 mg PO DAILY estradiol [Estrace] 0.01 % (0.1 mg/gram) cream 0.25 appful vaginal .2x a week fluticasone propion-salmeterol [Advair Diskus] 250-50 mcg/dose blister with device 1 inh inhalation BID Humulin 70/30 U-100 Insulin 100 unit/mL (70-30) suspension 20 unit subcut BID lisinopril 20 mg tablet 20 mg PO DAILY loratadine [Claritin] 10 mg tablet 10 mg PO DAILY promethazine 25 mg tablet 25 mg PO Q6H PRN (Reason: nausea and vomiting) Activity: ambulate only with your walker and wear oxygen at all times Diet: advance to your usual diet Patient Instructions: C. Diff (Clostridioides Difficile) Infection (DC) Forms: Portal Instructions Follow Up Appointments: Follow up appt. with Dr. Rendon on @ 2pm, will need recheck cbc/cmp/address UTI/C. diff infections Office #: [phone] Will Need appt with General Surgeon to address iron def anemia/EGD/colonoscopy and Hemorrhoids Discharge location: Home with [facility]
--- NOTE | 2023-03-15 11:26 | CM.NOTE ---
Faxed discharge summary and medication list to [facility] for discharge today.
--- NOTE | 2023-03-15 11:47 | PC.NURSE ---
Urinary catheter removed, 10 mL removed from balloon, patient tolerated well, víctor care performed
--- NOTE | 2023-03-15 11:57 | CM.NOTE ---
Called [facility], fax received for discharge to home today.
--- NOTE | 2023-03-15 12:55 | PC.NURSE ---
Picc removed from left upper arm, pressure applied till no further bleeding, 2x2 applied to site, covered with tegaderm. PICC length 40 cm long. tolerated well
--- NOTE | 2023-03-15 13:28 | CM.NOTE ---
2nd Notice for Important Message From medicare discussed with pt, pt denies any questions or concerns.
--- NOTE | 2023-03-16 15:50 | CM.DCFOLLOWU ---
1st attempt- no answer
--- NOTE | 2023-03-17 15:37 | CM.DCFOLLOWU ---
Person spoke with: Kate How are you feeling? Much better How is your pain? No pain Did you understand your discharge instructions? Yes Do you have any questions about your discharge instructions? No Were you given any prescriptions at discharge? Yes Were you able to get your prescriptions filled? Yes but they did not provided anything to dispense oral medication. Pt had a cup from cough medicine. Pt given directions on how to measure Do you understand how to take your medications as ordered? yes Do you have any questions about your follow up appointment and do you plan to keep your follow up appointment? No already scheduled Is there anything else that you would like to discuss? No Questions/Comments/Concerns/Other:
--- NOTE | 2023-03-18 12:10 | CM.DCFOLLOWU ---
Person spoke with: patient How are you feeling? ok How is your pain? none Did you understand your discharge instructions? yes Do you have any questions about your discharge instructions? no Were you given any prescriptions at discharge? yes Were you able to get your prescriptions filled? yes Do you understand how to take your medications as ordered? States yes but asks if she can take her medications for C-Diff all at once. When asked patient if she is speaking about her Vancomycin that is ordered to be taken four times a day, she stated yes, I said no, you should never take 4 doses of any medication all at once, you should take it as ordered. Pt. voiced understanding. Do you have any questions about your follow up appointment and do you plan to keep your follow up appointment? Dr. Barber , keeping appointment and reminded patient to ask about referral to general surgeon to address anemia as written on discharge instructions Is there anything else that you would like to discuss? no Questions/Comments/Concerns/Other:
== END 2023-03-15 14:48 | disposition home health service (06) | DRG 372 ==
LOC: ER 18:04 → MS 18:14
PROVIDERS: Physician Assistant; Admitting Provider Internal Medicine; Emergency Provider Emergency Medicine Emergency Medical Services; PCP Internal Medicine; Visit Provider Family Medicine
DX: A04.71 Enterocolitis due to Clostridium difficile, recurrent (principal); I13.0 Hypertensive heart and chronic kidney disease with heart failure and stage 1 through stage 4 chronic kidney disease, or unspecified chronic kidney disease; N17.9 Acute kidney failure, unspecified; N39.0 Urinary tract infection, site not specified; I50.32 Chronic diastolic (congestive) heart failure; J96.11 Chronic respiratory failure with hypoxia; E86.0 Dehydration; D63.1 Anemia in chronic kidney disease; E83.51 Hypocalcemia; G40.909 Epilepsy, unspecified, not intractable, without status epilepticus; F41.9 Anxiety disorder, unspecified; H91.90 Unspecified hearing loss, unspecified ear; I48.91 Unspecified atrial fibrillation; N18.30 Chronic kidney disease, stage 3 unspecified; J44.9 Chronic obstructive pulmonary disease, unspecified; F32.A Depression, unspecified; E11.22 Type 2 diabetes mellitus with diabetic chronic kidney disease; B96.89 Other specified bacterial agents as the cause of diseases classified elsewhere; E66.9 Obesity, unspecified; K21.9 Gastro-esophageal reflux disease without esophagitis; K64.9 Unspecified hemorrhoids; D35.00 Benign neoplasm of unspecified adrenal gland; R33.9 Retention of urine, unspecified; Z90.710 Acquired absence of both cervix and uterus; Z90.49 Acquired absence of other specified parts of digestive tract; Z79.01 Long term (current) use of anticoagulants; Z79.899 Other long term (current) drug therapy; Z68.31 Body mass index [BMI] 31.0-31.9, adult; Z79.85 Long-term (current) use of injectable non-insulin antidiabetic drugs; Z82.49 Family history of ischemic heart disease and other diseases of the circulatory system; Z83.6 Family history of other diseases of the respiratory system; Z87.440 Personal history of urinary (tract) infections
CPT/HCPCS: 36415; 36430; 36569; 36592; 51702; 70450; 71045; 74176; 80048; 80053; 81001; 82607; 82728; 82746; 82948; 83540; 83550; 83605; 83735; 83970; 84443; 84466; 84484; 85014; 85018; 85025; 86850; 86900; 86901; 87086; 87150; 87186; 87493; 93005; 94640; 94761; 95816; 96361; 96365; 96366; 96367; 96375; 96376; 97110; 97163; 97165; 97530; 97535; 99285; C1887; G0328; J1756; J3480; P9016; Q3014

== ENCOUNTER 2023-03-21 19:03 | Inpatient (IN) | payer MEDICARE, OTHER, MEDICAID, SELFPAY ==
[2023-03-21] VITALS (38 sets, daily range): BP systolic 131–168; BP diastolic 62–89; PULSE 66–118; RESP 18–35; TEMP 36.6–36.9; O2SAT 95–98; BMI 31.2; BMI 30.5
--- NOTE | 2023-03-21 19:09 | ECG_ITS ---
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
--- NOTE | 2023-03-21 19:29 | PC.NURSE ---
pt brought in by ems, patient arrives from home, pt always wears 3 liters nasal cannula for copd. patient was at home and after going to bathroom states her left arm began shaking and she had numbness/tingling throughout hands. patient states she lives at home with her daughters and they lowered patient to ground and placed pillow under patients head. pt does have hx of seizures for the last year but has not seen a neurologist for this and does not take any medication for her seizures. patient states she was here 2 weeks ago for a seizure as well. on arrival to ED pt does have some post-ictal confusion but is aware of where she is at and why she is at the hospital.
--- NOTE | 2023-03-21 19:34 | ED.SEIZURE1 ---
HPI - Seizure General Chief Complaint: Seizure Stated Complaint: seizure Time Seen by Provider: 03/21/23 19:24 Source: patient Mode of arrival: ambulance History of Present Illness HPI Narrative: past history of 02 dependent COPD who still smokes cigarettes, diabetes, CKD with associated anemia. recent admission earlier this month for Seizure. Neuro consulted and felt seizure was metabolic and no anti sz medication ordered. During her last hospitalization she was transfused 3U PRBC and iron tranfusion. She was also started on vancomycin for C. Diff. She states she still has some diarrhea but has slowed down. Tonight she was apparently going to the bathroom with her daughter's assistance. Daughter describes holding her mother's hands and they seized up and she became unresponsive the they went to the floor. States her mother was not injured. States her mother stop breathing and her lips turned blue. The daughter then used one hand to push on her chest . She did this 2 separate times. She did not want to apply 2 hands used in CPR because she feels her mother is too frail. States when her mother did wake up she was confused. Did not know her name or date. . She now presents here in no distress. States she feels a little confused but is AxOx3 . No injury or headache. CT earlier this month after her seizure was without acute findings Seizure History: Yes Place: home Related Data Home Medications Medication Instructions Recorded Confirmed albuterol sulfate 90 mcg/actuation 2 puff inhalation Q4H PRN 10/08/22 03/09/23 aerosol inhaler (Ventolin HFA) shortness of breath or wheezing alprazolam 1 mg tablet 1 mg PO TID PRN anxiety 10/08/22 03/09/23 apixaban 5 mg tablet (Eliquis) 5 mg PO BID 10/08/22 03/09/23 brexpiprazole 1 mg tablet (Rexulti) 1 mg PO QDAY 10/08/22 03/09/23 cyclobenzaprine 10 mg tablet 10 mg PO .qhs PRN muscle spasm 10/08/22 03/09/23 dulaglutide 0.75 mg/0.5 mL 0.75 mg subcut QWEEK high blood 10/08/22 03/09/23 subcutaneous pen injector sugar (Trulicity) fluoxetine 40 mg capsule 40 mg PO DAILY 10/08/22 03/09/23 magnesium oxide 400 mg (241.3 mg 400 mg PO BID 10/08/22 03/09/23 magnesium) tablet metoprolol tartrate 50 mg tablet 50 mg PO BID 10/08/22 03/09/23 omeprazole 40 mg capsule,delayed 40 mg PO BID 10/08/22 03/09/23 release tizanidine 4 mg tablet 4 mg PO TID PRN muscle spasticity 10/08/22 03/09/23 atorvastatin 20 mg tablet (Lipitor) 20 mg PO DAILY 03/09/23 03/09/23 bumetanide 2 mg tablet 2 mg PO DAILY 03/09/23 03/09/23 dapagliflozin propanediol 10 mg 10 mg PO DAILY 03/09/23 03/09/23 tablet (Farxiga) estradiol 0.01% (0.1 mg/gram) 0.25 appful vaginal .2x a week 03/09/23 03/09/23 vaginal cream (Estrace) fluticasone 250 mcg-salmeterol 50 1 inh inhalation BID 03/09/23 03/09/23 mcg/dose blistr powdr for inhalation (Advair Diskus) insulin human U-100 NPH-regulr 20 unit subcut BID 03/09/23 03/09/23 70-30 mix 100 unit/mL subcutaneous susp (Humulin 70/30 U-100 Insulin) lisinopril 20 mg tablet 20 mg PO DAILY 03/09/23 03/09/23 loratadine 10 mg tablet (Claritin) 10 mg PO DAILY 03/09/23 03/09/23 metolazone 2.5 mg tablet 2.5 mg PO DAILY 03/09/23 03/09/23 promethazine 25 mg tablet 25 mg PO Q6H PRN nausea and 03/09/23 03/09/23 vomiting ciprofloxacin HCl 500 mg tablet 500 mg PO DAILY 03/21/23 03/21/23 rdacpxic-jhthgpcnz-ryceriwmx 3.5 3 drp otic (ear) Q4H 03/21/23 03/21/23 mg-10,000 unit/mL-1 % ear drops,susp Previous Rx's Medication Instructions Recorded vancomycin 50 mg/mL oral solution 125 mg (2.5 mL) PO QID 10 days 03/15/23 (Firvanq) #100 mL Allergies Allergy/AdvReac Type Severity Reaction Status Date / Time No Known Drug Allergies Allergy Verified 03/21/23 19:07 Review of Systems ROS Status of ROS 10 or more systems reviewed and unremarkable except as noted in history and below [facility] Medical History (Updated 03/21/23 @ 22:52 by Eugene Estevez MD) (HFpEF) heart failure with preserved ejection fraction ?I50.30 - Unspecified diastolic (congestive) heart failure (ICD-10) Adrenal adenoma ?D35.00 - Benign neoplasm of unspecified adrenal gland (ICD-10) Anemia ?D64.9 - Anemia, unspecified (ICD-10) Anemia due to chronic kidney disease ?N18.9 - Chronic kidney disease, unspecified (ICD-10) ?D63.1 - Anemia in chronic kidney disease (ICD-10) Atrial fibrillation ?I48.91 - Unspecified atrial fibrillation (ICD-10) CHF (congestive heart failure) ?I50.9 - Heart failure, unspecified (ICD-10) CHF (congestive heart failure) ?I50.9 - Heart failure, unspecified (ICD-10) Chronic respiratory failure with hypoxia ?J96.11 - Chronic respiratory failure with hypoxia (ICD-10) CKD (chronic kidney disease) stage 3, GFR 30-59 ml/min ?N18.30 - Chronic kidney disease, stage 3 unspecified (ICD-10) COPD (chronic obstructive pulmonary disease) ?J44.9 - Chronic obstructive pulmonary disease, unspecified (ICD-10) Depression ?F32.A - Depression, unspecified (ICD-10) Diabetes ?E11.9 - Type 2 diabetes mellitus without complications (ICD-10) Edema ?R60.9 - Edema, unspecified (ICD-10) Heart murmur ?R01.1 - Cardiac murmur, unspecified (ICD-10) Hernia of anterior abdominal wall ?K43.9 - Ventral hernia without obstruction or gangrene (ICD-10) Hypertension ?I10 - Essential (primary) hypertension (ICD-10) Hypocalcemia ?E83.51 - Hypocalcemia (ICD-10) Obesity ?E66.9 - Obesity, unspecified (ICD-10) Reducible umbilical hernia ?K42.9 - Umbilical hernia without obstruction or gangrene (ICD-10) Surgical History (Updated 10/09/22 @ 00:41 by Jennifer Trejo) H/O: hysterectomy ?Z90.710 - Acquired absence of both cervix and uterus (ICD-10) History of cholecystectomy ?Z90.49 - Acquired absence of other specified parts of digestive tract (ICD-10) Family History (Updated 10/09/22 @ 00:43 by Jennifer Trejo) Family/Other Family history of CHF (congestive heart failure) Family history of COPD (chronic obstructive pulmonary disease) Family history of hypertension Social History Smoking status: Current every day smoker Second hand tobacco smoke exposure: No Non-prescribed substance use: denies use Previous occupational history: retired Known occupational exposures/hazards: Yes Highest level of school completed/degree received: some college, no degree Are you now , , , , never or living with a partner: In a typical week, how many times do you talk on the telephone with family, friends, or neighbors: 3 or more times per week How often do you get together with friends or relatives: 3 or more times per week How often do you attend latter-day or episcopalian services: 1-3 times per year Do you belong to any clubs or organizations such as latter-day groups unions, [employer]ce[employer] or athletic groups, or school groups: no Total score: 1 Score interpretation: A score of less than or equal to 1 indicates the most socially isolated. Little interest or pleasure in doing things: not at all Feeling down, depressed, or hopeless: not at all Feel stressed/tense/nervous/anxious/difficulty sleeping: not at all Due to disability, difficulty making decisions: No Do you think of yourself as: straight/heterosexual Gender Identity: female Exam Constitutional Vital Signs, click to edit/add: Last Vital Signs Temp 97.8 F 03/21/23 19:04 Pulse 66 03/21/23 22:20 Resp 24 03/21/23 22:20 BP 146/80 H 03/21/23 21:30 Pulse Ox 95 03/21/23 22:20 O2 Del Method Nasal Cannula 03/21/23 19:28 O2 Flow Rate 3 03/21/23 19:28 Common normals: no apparent distress, average body habitus, oriented x3, no limitations, healthy appearing, alert and well nourished HENMT Other: white exudate lining the left ear canal. no swelling Eye Common normals: PERRL, EOMs intact bilaterally, conjunctivae normal and no scleral icterus Respiratory Common normals: normal respiratory effort, no retractions, no use of accessory muscles and clear to auscultation bilaterally Cardio Common normals: regular rate, regular rhythm, S1 normal heart sound and S2 normal heart sound GI Common normals: Normal to inspection, nondistended, normoactive bowel sounds present, soft to palpation and non-tender Extremity Common normals: normal to inspection and full ROM Other: trace ankle edema bilat Neuro Common normals: oriented x3, CN's II-XII intact bilaterally, moves all extremities and no focal motor deficits Psych Appearance: grossly normal Course Vital Signs Vital signs: Vital Signs Temperature 97.8 F 03/21/23 19:04 Pulse Rate 82 03/21/23 19:04 Respiratory Rate 18 03/21/23 19:04 Blood Pressure 168/89 H 03/21/23 19:04 Pulse Oximetry 95 03/21/23 19:04 Oxygen Delivery Method Room Air 03/21/23 19:04 Temperature 97.8 F 03/21/23 19:04 Pulse Rate 66 03/21/23 22:20 Respiratory Rate 24 03/21/23 22:20 Blood Pressure 146/80 H 03/21/23 21:30 Pulse Oximetry 95 03/21/23 22:20 Oxygen Delivery Method Nasal Cannula 03/21/23 19:28 Oxygen Delivery Flow Rate 3 03/21/23 19:28 MDM - Seizure MDM Narrative Medical decision making narrative: patient presents from home after a seizure. Per her daughter she was walking to the bathroom when the event occurred. Daughter was holding her hands and they the patient's hands came together in a tonic fashion and she became unresponsive and she fell to the floor. Daughter was able to prevent her from harming herself. She was recently admitted for seizure amongst other illnesses including anemia requiring transfusion and C. Difficle. Workup per Neurology including an EEG and Neurology felt her presentation was not a seizure but metabolic. At this admission she was hypocalcemic and she is again tonight with a calcium of 5.5 and magnesium of 0.7. Patient treated with 1000mg calcium gluconate and 2g magnesium. she has CKD. Tonight creat 2.55 and BUN 35 Discussed with the hospitalist and patient accepted for admission Lab Data Labs: Lab Results 03/21/23 03/21/23 03/21/23 Range/Units 19:11 20:45 22:45 WBC 12.4 H (4.0-11.0) 10^3/uL RBC 3.68 L (4.20-5.40) 10^6/uL Hgb 11.3 L (12.0-16.0) g/dL Hct 35.7 L (36.0-48.0) % MCV 97.0 (81.0-99.0) fL MCH 30.7 (26.7-34.0) pg MCHC 31.7 (29.9-35.2) g/dL RDW 15.2 H (11.0-15.0) % Plt Count 197 (150-450) 10^3/uL MPV 9.3 L (9.5-13.5) fL Neut % (Auto) 60.2 (43.0-75.0) % Lymph % (Auto) 27.7 (20.5-60.0) % [place] % (Auto) 7.2 (1.7-12.0) % Eos % (Auto) 3.8 (0.9-7.0) % Baso % (Auto) 0.6 (0.2-2.0) % Neut # (Auto) 7.5 H (1.4-6.5) 10^3/uL Lymph # (Auto) 3.4 (1.2-3.8) 10^3/uL [place] # (Auto) 0.9 H (0.3-0.8) 10^3/uL Eos # (Auto) 0.5 (0.0-0.7) 10^3/uL Baso # (Auto) 0.1 (0.0-0.1) 10^3/uL Abs Immat Gran (auto) 0.06 H (0.00-0.03) 10^3/uL Imm/Tot Granulo (auto) 0.5 (0.0-0.5) % Sodium 139 (136-145) mmol/L Potassium 3.2 L (3.5-5.1) mmol/L Chloride 96 L (98-107) mmol/L Carbon Dioxide 32.3 H (21.0-32.0) mmol/L Anion Gap 13.9 BUN 35.0 H (7.0-18.0) mg/dL Creatinine 2.55 H (0.55-1.02) mg/dL Est GFR ( Amer) 22 L (>=60) Est GFR (Non-Af Amer) 18 L (>=60) BUN/Creatinine Ratio 13.7 Glucose 159 H (74-106) mg/dL Calcium 5.5 L* (8.5-10.1) mg/dL Magnesium 0.7 L* (1.8-2.4) mg/dL Total Bilirubin 0.6 (0.2-1.0) mg/dL AST 27 (15-37) U/L ALT 23 (14-59) U/L Alkaline Phosphatase 104 (46-116) U/L Troponin I High Sens 17.6 (4.0-51.3) pg/mL Total Protein 7.3 (6.4-8.2) g/dL Albumin 2.9 L (3.4-5.0) g/dL Globulin 4.4 g/dL Albumin/Globulin Ratio 0.7 Urine Color Lt. yellow (YELLOW) Urine Clarity Clear (CLEAR) Urine pH 5.5 (5.0-9.0) Ur Specific [place] 1.020 (1.005-1.025) Urine Protein 100 A (NEG/TRACE) mg/dL Urine Glucose (UA) 250 A (NEGATIVE) mg/dL Urine Ketones Negative (NEGATIVE) mg/dL Urine Occult Blood Moderate A (NEGATIVE) Urine Nitrite Negative (NEGATIVE) Urine Bilirubin Negative (NEGATIVE) Urine Urobilinogen 0.2 (0.2-1.0) EU/dL Ur Leukocyte Esterase Small A (NEGATIVE) Urine RBC 20-50 A (0-2) #/HPF Urine WBC 75-100 A (NONE SEEN) #/HPF Ur Squamous Epith Cells Moderate A (NONE/RARE) #/LPF Urine Crystals None seen (None Seen) #/HPF Urine Bacteria Small A (NONE SEEN) #/HPF Urine Casts None seen (NONE SEEN) #/LPF Urine Mucus None seen (NONE SEEN) Urine Yeast Seen A (NONE SEEN) Ur Culture Indicated? Yes POC Glucose 147 H (74-106) mg/dL Discharge Plan Discharge Chief Complaint: Seizure Clinical Impression: Acute otitis externa of left ear, C. difficile diarrhea, Generalized seizure, Hypomagnesemia, Hypocalcemia Patient Disposition: Admitted As Inpatient
[2023-03-21 19:44] LABS: Basophils Absolute Auto 0.1 10^3/uL (0.0-0.1); Basophils Percent Auto 0.6 % (0.2-2.0); Eosinophils Absolute Auto 0.5 10^3/uL (0.0-0.7); Eosinophils Percent Auto 3.8 % (0.9-7.0); Hematocrit 35.7 % (36.0-48.0); Hemoglobin 11.3 g/dL (12.0-16.0); Immature Granulocytes Abs Auto 0.06 10^3/uL (0.00-0.03); Immature Granulocytes Pct Auto 0.5 % (0.0-0.5); Lymphocytes Absolute Auto 3.4 10^3/uL (1.2-3.8); Lymphocytes Percent Auto 27.7 % (20.5-60.0); Mean Corpuscular HGB Conc 31.7 g/dL (29.9-35.2); Mean Corpuscular Hemoglobin 30.7 pg (26.7-34.0); Mean Platelet Volume 9.3 fL (9.5-13.5); Monocytes Absolute Auto 0.9 10^3/uL (0.3-0.8); Monocytes Percent Auto 7.2 % (1.7-12.0); Neutrophils Absolute Auto 7.5 10^3/uL (1.4-6.5); Neutrophils Percent Auto 60.2 % (43.0-75.0); Platelet Count 197 10^3/uL (150-450); Red Blood Count 3.68 10^6/uL (4.20-5.40); Red Cell Distribution Width 15.2 % (11.0-15.0); White Blood Count 12.4 10^3/uL (4.0-11.0)
[2023-03-21 19:57] LABS: Alanine Aminotransferase 23 U/L (14-59); Albumin Globulin Ratio 0.7; Albumin Level 2.9 g/dL (3.4-5.0); Alkaline Phosphatase 104 U/L (46-116); Anion Gap 13.9; Aspartate Amino Transferase 27 U/L (15-37); BUN Creatinine Ratio 13.7; Bilirubin Total 0.6 mg/dL (0.2-1.0); Carbon Dioxide 32.3 mmol/L (21.0-32.0); Chloride 96 mmol/L (98-107); Estimated GFR (African America 22 (>=60); Estimated GFR (Non-African Ame 18 (>=60); Globulin 4.4 g/dL; Glucose 159 mg/dL (74-106); Potassium 3.2 mmol/L (3.5-5.1); Sodium 139 mmol/L (136-145); Total Protein 7.3 g/dL (6.4-8.2); Troponin I High Sensitivity 17.6 pg/mL (4.0-51.3)
[2023-03-21 19:58] LABS: Calcium 5.5 mg/dL (8.5-10.1); Magnesium 0.7 mg/dL (1.8-2.4)
[2023-03-21] MEDS: CALCIUM GLUCONATE 1,000 MG/10 ML VIAL 1000 MG IVP (20:20)
[2023-03-21] MEDS: MAGNESIUM SULFATE IN WATER 2 GM/50 ML PREMIX IV (20:20)
--- NOTE | 2023-03-21 20:52 | ECG_ITS ---
The [facility] Test Date: 2023-03-21 Pat Name: MARTIN HAGEN Department: Room: [facility] Gender: Female Second Vp Hr Assessment: : 1950 Requested By: BARRY RENDON Order Number: [id number] Reading MD: BRISA POOL Measurements Intervals [place] Rate: 71 P: -37 GA: 122 QRS: 62 QRSD: 76 T: 54 QT: 482 QTc: 504 Interpretive Statements Low atrial verses junctional rhythm 1470 with occasional supraventricular premature complexes 8102 Low QRS voltage in chest leads 8304 Long QTc interval 9150 abnormal ECG Electronically Signed On 03-23-2023 7:08:27 EST by BRISA POOL
[2023-03-21 21:05] LABS: Bilirubin Urine NEGATIVE (NEGATIVE); Blood Urine MODERATE (NEGATIVE); Clarity Urine CLEAR (CLEAR); Color Urine LT. YELLOW (YELLOW); Glucose Urine UA 250 mg/dL (NEGATIVE); Ketones Urine NEGATIVE (NEGATIVE); Leukocyte Esterase Urine SMALL (NEGATIVE); Nitrite Urine NEGATIVE (NEGATIVE); Protein Urine 100 mg/dL (NEG/TRACE); Urobilinogen Urine 0.2 EU/dL (0.2-1.0); pH Urine 5.5 (5.0-9.0)
[2023-03-21] MEDS: 0.9 % SODIUM CHLORIDE 1,000 ML 100 ML IV (21:05)
[2023-03-21 21:06] LABS: Urine Microscopic Indicated YES
[2023-03-21 21:12] LABS: Bacteria Urine SMALL #/HPF (NONE SEEN); Cast Seen? NONE SEEN #/LPF (NONE SEEN); Crystals Seen? None Seen #/HPF (None Seen); Mucus Urine NONE SEEN (NONE SEEN); RBC Urine 20-50 #/HPF (0-2); Squamous Epithelial Cell Urine MODERATE #/LPF (NONE/RARE); Urine Culture Indicated YES; WBC Urine 75-100 #/HPF (NONE SEEN)
[2023-03-21 22:50] LABS: Glucometer 147 mg/dL (74-106)
[2023-03-22] VITALS (127 sets, daily range): BP systolic 128–163; BP diastolic 74–129; PULSE 62–102; RESP 14–28; TEMP 36.6–36.9; O2SAT 92–100
--- NOTE | 2023-03-22 00:34 | PC.NURSE ---
At 0007 Nurse into room to fix patient's iv. Iv to right forearm infiltrated. Iv switched to left antecubital site. As nurse went to exit room, Nurse heard patient make a weird garbled sound. Upon reentering room, patient having seizure activity. Nurse called for nursing Chorus Master. Patient's body was rigid, and shaking, eyes were closed and performing nystagmus. Patient unresponsive and holding breath. This lasted for about 30 seconds. Patient stopped shaking eyes opened and rolled back. Patient not breathing, gasping every couple of seconds. Patient still had pusle. Code blue called. Patient started breathing on own again. Extra personnel to room. ER Dr. Estevez to patient's room. No new orders at this time. Patient started breathing on own. Blood pressure 110/68. Patient moved to icu room 271 for closer observation. Patient was able to tell [facility] nurse her name and where she was at. Telehospitalist Dr. Pau Fung notified of event.
--- NOTE | 2023-03-22 00:47 | PC.NURSE ---
pt arrived to room via bed from floor. pt wearing 2L NC and awake looking around. alert and oriented x3. does not know what happened. states she has no aura before seizure. side rails padded, placed on monitor and vitals assessed
[2023-03-22] MEDS: 0.9 % SODIUM CHLORIDE 1,000 ML 75 ML IV (00:57)
--- NOTE | 2023-03-22 02:32 | P.PN_ITS ---
Progress Note: Subjective Subjective Interval history: Patient is a 72-year-old female with history of CKD stage III, DM type II, HLD, CHF, chronic A-fib on Eliquis, COPD on 2 L home O2, and recently diagnosed UTI and C. difficile infection presenting with altered mentation after patient had a witnessed seizure at home. Patient of note was recently hospitalized here 03/10 - 03/15 for new onset seizure and was diagnosed with C. difficile as well as UTI. During that hospitalization, patient was evaluated by tele-neurology who felt that patient's seizure was metabolic, triggered by electrolyte abnormalities and UTI at that time. Neurology recommended holding off on initiation of antiepileptic agent and treat UTI as well at least replete electrolytes and patient was discharged with a prescription for oral Vanco to treat the C. difficile as well as Cipro for which patient indicates that she is still taking. The patient reports that she lives with 2 of her daughters. Tonight, the patient was being assisted by one of her daughters earlier in the day after walking out of the bathroom when she reports that she reached out for something and felt herself seize up and subsequently had an episode of loss of consciousness. The patient's daughter was able to assist with getting patient to the floor and reportedly attempted CPR but only with 1 hand as she felt that her mom was too frail to apply any significant pressure. It was reported that daughter attempted CPR for 2 pushes before patient became more alert and awake. The daughter did note that patient appeared confused upon coming to. There is no reported fever and no urinary incontinence. Denies any tongue biting.. She denies any precipitating chest pain or palpitations. Does report feeling mildly dizzy earlier in the day. Upon arrival to the ED, vital signs noted for RR of 24, afebrile, 95% on 3 L. Pertinent laboratory parameters include WBC 12.4, hemoglobin 11.3, K3.2, magnesium 0.7, calcium 5.5, BUN 35, creatinine 2.55 from 2.14 on 03/15. No imaging studies were done today as patient just had a negative CT scan done on 03/09. Patient was treated with calcium gluconate 1 g, magnesium 2 g, and Ativan 1 mg. Upon arrival to medical floor around midnight, patient had a recurrent seizure witnessed by staff and was described as tonic-clonic with intermittent apneic episodes. No resuscitative measures were initiated as patient came to very quickly and never lost a pulse, although had a period of postictal state. Patient subsequently was transferred to the ICU where I saw the patient and she was conversive and able to provide some history, although she does not recall the actual seizure episodes. At approximately 3:40 AM, patient had a recurrent episode described as tonic-clonic with intermittent apneic episodes. Patient received stat Ativan 2 mg IV. Patient was reassessed and remains lethargic but is becoming more alert slowly. There was no tongue biting nor any fecal or urinary incontinence. Stat labs ordered earlier are pending and electrolytes are being repleted. CT brain being ordered and patient will be initiated on Keppra given this is the third episode in less than 24 hours Exam Constitutional Vital Signs, click to edit/add: Last Vital Signs Temp 98.0 F 03/21/23 23:12 Pulse 81 03/22/23 01:01 Resp 20 03/22/23 01:01 BP 154/80 H 03/22/23 01:01 Pulse Ox 93 L 03/22/23 01:01 O2 Del Method Nasal Cannula 03/22/23 01:01 O2 Flow Rate 3 03/22/23 01:01 Common normals: no apparent distress General appearance: cooperative and comfortable HENSD Common normals: normocephalic Respiratory Common normals: normal respiratory effort Effort & inspection: able to speak in complete sentences Auscultation: clear to auscultation bilaterally and diminished lung sounds Cardio Rhythm: abnormal rhythm (no tachycardia) irregularly irregular GI Common normals: Normal to inspection, nondistended, normoactive bowel sounds present Other: morbidly obese Extremity Common normals: normal to inspection General: edema (1+ ble) Neuro Common normals: oriented x3 Sensorium/orientation: awake Progress Note: Objective Labs Labs: Short CBC 03/21/23 Range/Units 19:11 WBC 12.4 H (4.0-11.0) 10^3/uL Hgb 11.3 L (12.0-16.0) g/dL Hct 35.7 L (36.0-48.0) % Plt Count 197 (150-450) 10^3/uL BMP 03/21/23 19:11 Sodium 139 Potassium 3.2 L Chloride 96 L Carbon Dioxide 32.3 H BUN 35.0 H Creatinine 2.55 H Glucose 159 H Calcium 5.5 L* Liver Function 03/21/23 Range/Units 19:11 Total Bilirubin 0.6 (0.2-1.0) mg/dL AST 27 (15-37) U/L ALT 23 (14-59) U/L Alkaline Phosphatase 104 (46-116) U/L Albumin 2.9 L (3.4-5.0) g/dL Urine 03/21/23 Range/Units 20:45 Urine Color Lt. yellow (YELLOW) Urine Clarity Clear (CLEAR) Urine pH 5.5 (5.0-9.0) Ur Specific [place] 1.020 (1.005-1.025) Urine Protein 100 A (NEG/TRACE) mg/dL Urine Glucose (UA) 250 A (NEGATIVE) mg/dL Progress Note: A&P Assessment and Plan (1) Generalized seizure: (2) Hypomagnesemia: (3) Hypocalcemia: (4) UTI (urinary tract infection) due to Enterococcus: (5) C. 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: with group home use Diabetes mellitus complication status: with kidney c omplications Diabetes mellitus complication detail: with chronic kidney disease Chronic kidney disease stage: stage 3 (moderate) Chronic kidney disease stage 3 subtype: stage 3a (GFR 45-59) Qualified Code(s): E11.22 - Type 2 diabetes mellitus with diabetic chronic kidney disease; N18.31 - Chronic kidney disease, stage 3a; 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 Seen by teleneurology at that time and it was felt that seizure was metabolic therefore no AED recommended at that time. CT brain 03/09 negative -Patient 3 seizures in less than 24 hours, 1 at home, and 2 since admitted to the floor witnessed by nursing staff. -As needed IV Ativan ordered -After an episode of seizure, will proceed with initiation of Keppra 500 mg IV twice daily for now patient is just received Ativan therefore we will hold off on loading dose to avoid significant lethargy given apneic episodes earlier -Seizure precautions -Check stat CT brain frequent seizures. Patient also on anticoagulation also rule out bleed although no neurological deficits were appreciated -EEG ordered -Aggressively replete electrolytes -Antibiotics for UTI -Placed tele neuro consult for the morning -Serial neurochecks Syncope. 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 Ordering CT brain -On telemetry Hypocalcemia/hypomagnesemia/hypokalemia -Received calcium gluconate and magnesium in the ED -Initially ordered KCl p.o. at that time patient was seen but delay in receiving from pharmacy. Given postictal state, will order IV KCl 40 mEq -Check ionized calcium, vitamin D. BMP already ordered for a.m. labs ELI on CKD stage III -IVF x1 L. Monitor respiratory status given underlying CHF -Avoidance of nephrotoxic agents. Hold Bumex, lisinopril, metolazone -Ordered UA which came back positive. Antibiotics ordered UTI. 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 Unsure if patient was compliant at home -Start IV Cipro -Check urine culture C. difficile infection. 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 Per discharge summary on 03/15, patient was prescribed p.o. Vanco 125 mg 3 times daily x10 days, will continue -Contact isolation Mild leukocytosis -May be secondary from seizure vs UTI. Afebrile -Antibiotics are noted as above -CBC in a.m. Chronic anemia, iron deficient -During last hospitalization, patient required 3 units PRBC transfusion and was referred to general surgery outpatient for colonoscopy and EGD -Monitor H&H, currently stable. Hemoglobin 11.3 History of CHF,HFpEF -Stable, no active issues -Bumex, lisinopril being temporarily held while providing IV hydration. Reassess timing for resumption after 24 hours pending clinical status COPD, stable -As needed nebs, Advair Chronic A-fib -Continue Eliquis DM type II -SSI. Hold oral home meds HTN -Holding Bumex, lisinopril. BP adequate for now HLD -Continue statin DVT prophylaxis Eliquis Full code Telemedicine Attestation Telemedicine Attestation I conducted this encounter from [MD] via secure live, [id number] video conference with the patient, located at [facility] with [Clarita OLIVER]. Prior to the interview, the risks and benefits of telemedicine were discussed with the patient and verbal consent was obtained.
[2023-03-22] MEDS: ACETAMINOPHEN 325 MG TABLET 650 MG PO ×2 (02:47→23:55)
[2023-03-22 03:05] LABS: Glucometer 154 mg/dL (74-106)
[2023-03-22] MEDS: LORAZEPAM 2 MG/ML 1 ML VIAL IV ×2 (03:45→11:06)
--- NOTE | 2023-03-22 04:11 | CT_ITS ---
[address] [address] Patient Name: MARTIN HAGEN MRN: [id number] date: 1950 Sex: F Assigned Patient Location: ICU Current Patient Location: ICU Accession/Order Number: [id number] Exam Date: 03/22/2023 04:25 Report Date: 03/22/2023 05:07 At the request of: JOSE NAM Procedure: CT head/brain wo con EXAM: CT head/brain wo con CLINICAL INDICATION: recurrent seizure COMPARISON: CT head 03/19/2023 TECHNIQUE: Axial CT images of the brain were obtained without contrast. Dose reduction techniques were achieved by using automated exposure control and/or adjustment of mA and/or kV according to patient size and/or use of iterative reconstruction technique. FINDINGS: Study limited by motion degraded artifact. Brain parenchyma: No mass effect or midline shift is seen. Correa-white differentiation is maintained. No findings suspicious for intracranial hemorrhage. No findings suggesting acute stroke. Periventricular hypoattenuation / patchy white matter hypodensities are statistically most often related to small vessel ischemic disease. Stable encephalomalacia along the right temporal occipital region likely sequela to prior infarct. Ventricles and extra-axial spaces: Ventricles are concordant with sulci. No findings suggesting hydrocephalus. Visualized paranasal sinuses: No findings suggesting acute sinusitis. Mastoid air cells: Clear. Included portions of the orbits:Included portions of the orbits with no evidence of fracture or other acute pathology. Bones: No fracture is seen. CT/CT head/brain wo con Impression: Study limited by motion degraded artifact. 1. No acute intracranial process. 2. 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 Electronically authenticated by: DEE DRAKE Date: 03/22/2023 05:07
[2023-03-22] MEDS: POTASSIUM CHLORIDE IN WATER 10 MEQ/100 ML PIGGYBACK 100 MEQ IV ×4 (04:20→06:44)
[2023-03-22] MEDS: ALBUTEROL SULFATE 2.5 MG/3 ML VIAL NEB IH ×4 (05:08→20:18)
[2023-03-22 05:12] LABS: Hematocrit 40.3 % (36.0-48.0); Hemoglobin 12.1 g/dL (12.0-16.0); Mean Corpuscular Hemoglobin 30.3 pg (26.7-34.0); Mean Platelet Volume 9.7 fL (9.5-13.5); Platelet Count 254 10^3/uL (150-450); Red Blood Count 3.99 10^6/uL (4.20-5.40); Red Cell Distribution Width 15.2 % (11.0-15.0); White Blood Count 20.5 10^3/uL (4.0-11.0)
[2023-03-22 05:38] LABS: Anion Gap 16.9; BUN Creatinine Ratio 14.5; Calcium 6.1 mg/dL (8.5-10.1); Carbon Dioxide 31.7 mmol/L (21.0-32.0); Chloride 97 mmol/L (98-107); Estimated GFR (African America 22 (>=60); Estimated GFR (Non-African Ame 18 (>=60); Glucose 141 mg/dL (74-106); Magnesium 1.3 mg/dL (1.8-2.4); Sodium 143 mmol/L (136-145)
[2023-03-22 05:47] LABS: Potassium 2.6 mmol/L (3.5-5.1)
[2023-03-22] MEDS: CIPROFLOXACIN IN 5 % DEXTROSE 400 MG/200 ML PIGGYBACK 200 MG IV (06:31)
[2023-03-22] MEDS: LEVETIRACETAM 500 MG in 0.9 % SODIUM CHLORIDE 100 ML 420 MG IV ×2 (06:32→16:12)
--- NOTE | 2023-03-22 07:00 | XR_ITS ---
[address] [address] Patient Name: MARTIN HAGEN MRN: [id number] date: 1950 Sex: F Assigned Patient Location: ICU Current Patient Location: ICU Accession/Order Number: [id number] Exam Date: 03/22/2023 07:10 Report Date: 03/22/2023 07:25 At the request of: DANIEL AGEE Procedure: XR chest 1V EXAMINATION: XR chest 1V HISTORY: SOB COMPARISON: XR chest 03/09/2023, 10/11/2022 FINDINGS: LUNGS: Underexpanded lungs without appreciable infiltrates or significant pulmonary edema. VASCULATURE: No increased pulmonary vasculature. PLEURA: No pneumothorax, effusion, or pleural thickening. CARDIAC: Mild cardiomegaly. MEDIASTINUM: No visible mass or adenopathy. BONES: Old, incompletely healed left humeral neck fracture. OTHER: Negative. XR/XR chest 1V IMPRESSION: 1. No acute cardiopulmonary process. 2. Stable mild cardiomegaly. Electronically authenticated by: ANITA KEYS Date: 03/22/2023 07:25
[2023-03-22 07:05] LABS: Band Neutrophils Absolute 0.4 10^3/uL (0.0-0.3); Lymphocytes Absolute Manual 7.99 10^3/uL (1.20-3.80); Monocytes Absolute Manual 0.82 10^3/uL (0.30-0.80); Segmented Neut Absolute Manual 11.27 10^3/uL (1.4-6.5)
[2023-03-22] MEDS: MAGNESIUM SULFATE IN WATER 4 GM/100 ML PIGGYBACK IV (07:55)
[2023-03-22 08:25] LABS: Phosphorus 5.1 mg/dL (2.6-4.7)
[2023-03-22 08:43] LABS: Glucometer 152 mg/dL (74-106)
[2023-03-22] MEDS: NEOMYCIN/POLYMYXIN B/HYDROCORTISONE OTIC SUSP 200 DROP/10 ML BOTTLE OT ×3 (08:43→22:06)
[2023-03-22] MEDS: METOPROLOL TARTRATE 50 MG TABLET PO ×2 (08:43→20:18)
[2023-03-22] MEDS: FLUOXETINE HCL 20 MG CAPSULE 40 MG PO (08:43)
[2023-03-22] MEDS: MAGNESIUM OXIDE 400 MG TABLET PO ×2 (08:43→20:18)
[2023-03-22] MEDS: APIXABAN 5 MG TABLET PO ×2 (08:43→20:18)
[2023-03-22] MEDS: ATORVASTATIN CALCIUM 20 MG TABLET PO (08:43)
[2023-03-22] MEDS: OMEPRAZOLE 40 MG CAPSULE.DR PO ×2 (08:43→20:19)
[2023-03-22] MEDS: INSULIN ASPART 300 UNIT/3 ML PEN SUBQ (08:45)
[2023-03-22] MEDS: BREXPIPRAZOLE 1 MG PO (08:49)
[2023-03-22] MEDS: 0.9 % SODIUM CHLORIDE 1,000 ML 100 ML IV (09:10)
[2023-03-22 09:34] LABS: Alanine Aminotransferase 19 U/L (14-59); Albumin Globulin Ratio 0.6; Albumin Level 2.6 g/dL (3.4-5.0); Alkaline Phosphatase 88 U/L (46-116); Anion Gap 13.8; Aspartate Amino Transferase 25 U/L (15-37); BUN Creatinine Ratio 15.4; Bilirubin Total 0.5 mg/dL (0.2-1.0); Carbon Dioxide 32.8 mmol/L (21.0-32.0); Chloride 98 mmol/L (98-107); Estimated GFR (African America 26 (>=60); Estimated GFR (Non-African Ame 22 (>=60); Globulin 4.1 g/dL; Glucose 115 mg/dL (74-106); Potassium 3.6 mmol/L (3.5-5.1); Sodium 141 mmol/L (136-145); Total Protein 6.7 g/dL (6.4-8.2)
[2023-03-22 09:36] LABS: Calcium 5.4 mg/dL (8.5-10.1)
--- NOTE | 2023-03-22 09:42 | CM.NOTE ---
Rounds made with Dr. Uriarte. Slow to answer questions. TeleNeuro Consult ordered. No plan for discharge today.
--- NOTE | 2023-03-22 10:00 | CM.NOTE ---
Important Message From Medicare discussed with pt, pt verbalizes understanding and signs paper. Original given to pt and copy placed on pt's chart.
[2023-03-22] MEDS: CALCIUM GLUC IN NACL, ISO-OSM 1 GM/50 ML PLAST..BAG IV (10:34)
[2023-03-22] MEDS: BUDESONIDE 0.5 MG/2 ML AMPULE NEB IH ×2 (11:00→20:18)
--- NOTE | 2023-03-22 11:44 | MR_ITS ---
The [address] [address] Patient Name: MARTIN HAGEN MRN: [id number] date: 1950 Sex: F Assigned Patient Location: ICU Current Patient Location: ICU Accession/Order Number: [id number] Exam Date: 03/22/2023 11:15 Report Date: 03/22/2023 12:32 At the request of: DANIEL AGEE Procedure: MR head/brain wo con MR head/brain wo con, 03/22/2023 11:15 AM EST INDICATION: Seizure/r/o Mass/CVA COMPARISON: Prior CT of head dated 03/22/2023 and MRI of the head dated 03/09/2022 TECHNIQUE: Only diffusion images of brain were obtained without injection of contrast. FINDINGS: This study is incomplete as the patient was not cooperative. There is no diffusion abnormality. There is no large intracranial mass, or midline shift. MR/MR head/brain wo con IMPRESSION: Incomplete study. No diffusion abnormality to suggest acute CVA. Electronically authenticated by: POOJA LINDSEY Date: 03/22/2023 12:32
[2023-03-22 12:10] LABS: Glucometer 116 mg/dL (74-106)
--- NOTE | 2023-03-22 12:23 | PC.NURSE ---
Patient was administered prn Ativan prior to going down for MRI. Patient was still unable to tolerate lying flat for her MRI and would repeatedly sit up per MRI staff. Patient awakens to name but is still unable to participate in her neuro checks d/t prn ativan that was given. Patient is currently resting comfortably with no s/s of distress noted at this time. Teleneurology consult is scheduled for [address] Garcia. Will continue to monitor patient.
--- NOTE | 2023-03-22 12:40 | P.HP_ITS ---
Pt seen and examined. No difficult with smile. Discussed wiht nurses issue with swallowing. agree with need for mri. Possible tumor as etiology for seiure focus, cva for possible dysphagia H&P: HPI History of Present Illness Chief complaint: SEIZURE Narrative: Date/time of exam: 03/22/23 0810 This is a 72-year-old female patient with a past medical history as outlined below including COPD who still smokes cigarettes, DM2, CKD 3B/4 with associated anemia, and recent admission earlier this month for a seizure; who presented to the ED yesterday evening after suffering another seizure at home. She was seen in consult by neurology during her last admission and they felt her seizure was metabolic related and no antiseizure medications were ordered. The patient was also noted to have C. difficile on her last admission and was initiated on p.o. vancomycin. She still is having some loose stools but they are beginning to thicken and slow down. The patient's daughter was helping her to the bathroom last night when her hands suddenly seized up and she went down to the ground. Her daughter notes that she turned blue and stop breathing during this episode. She did this 2 more times before presenting to the ED for further evaluations. Patient was apparently lethargic and confused after these events but was oriented by the time of arrival in the ED. Work-up in the ED revealed severe electrolyte disturbances (Calcium, magnesiu, potassium), UTI, and ELI. She was admitted overnight to the hospitalist service in ICU due to her severe electrolyte derangements. At the time of my exam this morning the patient is awake and oriented. She does have some minimal expressive aphasia but states this is chronic for her. Chronicity of this symptom is currently unknown based on documentation. After my exam nursing noted that the patient was having difficulty swallowing her pills and had to be suctioned. Although CT of the brain obtained today was negative for acute ischemia or other intracranial abnormality, we will attempt to obtain an MRI for more definitive evaluation. We will have consulted neurology and appreciate their assistance. As the patient did have 2 more seizures after she arrived on the floor last night she was initiated on Keppra with a loading dose followed by 500 mg twice daily pending further recommendations by neurology. Her severe electrolyte derangements are being repleted and are being monitored closely with repeat labs. Review of Systems ROS Status of ROS 10 or more systems reviewed and unremarkable except as noted in history and below [facility] Medical History (Updated 03/22/23 @ 12:54 by Hilary Carpio NP) (HFpEF) heart failure with preserved ejection fraction ?I50.30 - Unspecified diastolic (congestive) heart failure (ICD-10) Adrenal adenoma ?D35.00 - Benign neoplasm of unspecified adrenal gland (ICD-10) Anemia ?D64.9 - Anemia, unspecified (ICD-10) Anemia due to chronic kidney disease ?N18.9 - Chronic kidney disease, unspecified (ICD-10) ?D63.1 - Anemia in chronic kidney disease (ICD-10) Atrial fibrillation ?I48.91 - Unspecified atrial fibrillation (ICD-10) CHF (congestive heart failure) ?I50.9 - Heart failure, unspecified (ICD-10) CHF (congestive heart failure) ?I50.9 - Heart failure, unspecified (ICD-10) Chronic respiratory failure with hypoxia ?J96.11 - Chronic respiratory failure with hypoxia (ICD-10) CKD (chronic kidney disease) stage 3, GFR 30-59 ml/min ?N18.30 - Chronic kidney disease, stage 3 unspecified (ICD-10) COPD (chronic obstructive pulmonary disease) ?J44.9 - Chronic obstructive pulmonary disease, unspecified (ICD-10) Depression ?F32.A - Depression, unspecified (ICD-10) Diabetes ?E11.9 - Type 2 diabetes mellitus without complications (ICD-10) Edema ?R60.9 - Edema, unspecified (ICD-10) Heart murmur ?R01.1 - Cardiac murmur, unspecified (ICD-10) Hernia of anterior abdominal wall ?K43.9 - Ventral hernia without obstruction or gangrene (ICD-10) Hypertension ?I10 - Essential (primary) hypertension (ICD-10) Hypocalcemia ?E83.51 - Hypocalcemia (ICD-10) Obesity ?E66.9 - Obesity, unspecified (ICD-10) Reducible umbilical hernia ?K42.9 - Umbilical hernia without obstruction or gangrene (ICD-10) UTI (urinary tract infection) due to Enterococcus ?N39.0 - Urinary tract infection, site not specified (ICD-10) ?B95.2 - Enterococcus as the cause of diseases classified elsewhere (ICD-10) UTI due to Klebsiella species ?N39.0 - Urinary tract infection, site not specified (ICD-10) ?B96.89 - Other specified bacterial agents as the cause of diseases classified elsewhere (ICD-10) Surgical History (Updated 10/09/22 @ 00:41 by Jennifer Trejo) H/O: hysterectomy ?Z90.710 - Acquired absence of both cervix and uterus (ICD-10) History of cholecystectomy ?Z90.49 - Acquired absence of other specified parts of digestive tract (ICD- 10) Family History (Updated 10/09/22 @ 00:43 by Jennifer Trejo) Family/Other Family history of CHF (congestive heart failure) Family history of COPD (chronic obstructive pulmonary disease) Family history of hypertension Social History Smoking status: Current every day smoker Second hand tobacco smoke exposure: No Non-prescribed substance use: denies use Previous occupational history: retired Known occupational exposures/hazards: Yes Highest level of school completed/degree received: GED or equivalent Are you now , , , , never or living with a partner: In a typical week, how many times do you talk on the telephone with family, friends, or neighbors: 3 or more times per week How often do you get together with friends or relatives: 3 or more times per week How often do you attend religion or gnosticist services: 1-3 times per year Do you belong to any clubs or organizations such as religion groups unions, fraternal or athletic groups, or school groups: no Total score: 1 Score interpretation: A score of less than or equal to 1 indicates the most socially isolated. Little interest or pleasure in doing things: not at all Feeling down, depressed, or hopeless: not at all Feel stressed/tense/nervous/anxious/difficulty sleeping: not at all Due to disability, difficulty making decisions: No Do you think of yourself as: straight/heterosexual Gender Identity: female Meds Home Medications and Allergies Home Medications Medication Instructions Recorded Confirmed Type albuterol sulfate 90 mcg/actuation 2 puff inhalation Q4H PRN 10/08/22 03/21/23 History aerosol inhaler (Ventolin HFA) shortness of breath or wheezing alprazolam 1 mg tablet 1 mg PO TID PRN anxiety 10/08/22 03/21/23 History apixaban 5 mg tablet (Eliquis) 5 mg PO BID 10/08/22 03/21/23 History brexpiprazole 1 mg tablet (Rexulti) 1 mg PO QDAY 10/08/22 03/21/23 History cyclobenzaprine 10 mg tablet 10 mg PO .qhs PRN muscle spasm 10/08/22 03/21/23 History dulaglutide 0.75 mg/0.5 mL 0.75 mg subcut QWEEK high blood 10/08/22 03/21/23 History subcutaneous pen injector sugar (Trulicity) fluoxetine 40 mg capsule 40 mg PO DAILY 10/08/22 03/21/23 History magnesium oxide 400 mg (241.3 mg 400 mg PO BID 10/08/22 03/21/23 History magnesium) tablet metoprolol tartrate 50 mg tablet 50 mg PO BID 10/08/22 03/21/23 History omeprazole 40 mg capsule,delayed 40 mg PO BID 10/08/22 03/21/23 History release tizanidine 4 mg tablet 4 mg PO TID PRN muscle spasticity 10/08/22 03/21/23 History atorvastatin 20 mg tablet (Lipitor) 20 mg PO DAILY 03/09/23 03/21/23 History bumetanide 2 mg tablet 2 mg PO DAILY 03/09/23 03/21/23 History dapagliflozin propanediol 10 mg 10 mg PO DAILY 03/09/23 03/21/23 History tablet (Farxiga) estradiol 0.01% (0.1 mg/gram) 0.25 appful vaginal .2x a week 03/09/23 03/21/23 History vaginal cream (Estrace) fluticasone 250 mcg-salmeterol 50 1 inh inhalation BID 03/09/23 03/21/23 History mcg/dose blistr powdr for inhalation (Advair Diskus) lisinopril 20 mg tablet 20 mg PO DAILY 03/09/23 03/21/23 History metolazone 2.5 mg tablet 2.5 mg PO DAILY 03/09/23 03/21/23 History promethazine 25 mg tablet 25 mg PO Q6H PRN nausea and 03/09/23 03/21/23 History vomiting vancomycin 50 mg/mL oral solution 125 mg (2.5 mL) PO QID 10 days 03/15/23 03/21/23 Rx (Firvanq) #100 mL ciprofloxacin HCl 500 mg tablet 500 mg PO DAILY 03/21/23 03/21/23 History chwaiido-uakzwnfhp-tpwufjzhx 3.5 3 drp otic (ear) Q4H 03/21/23 03/21/23 History mg-10,000 unit/mL-1 % ear drops,susp Allergies Allergy/AdvReac Type Severity Reaction Status Date / Time No Known Drug Allergies Allergy Verified 03/21/23 19:07 Exam Constitutional Vital Signs, click to edit/add: Last Vital Signs Temp 97.9 F 03/22/23 12:07 Pulse 74 03/22/23 12:00 Resp 20 03/22/23 10:59 BP 128/74 03/22/23 06:00 Pulse Ox 92 L 03/22/23 12:00 O2 Del Method Nasal Cannula 03/22/23 07:30 O2 Flow Rate 3 03/22/23 07:30 Common normals: no apparent distress, oriented x3, alert and well nourished General appearance: cooperative Orientation/consciousness: Yes awake HENMT Common normals: normocephalic, head/scalp atraumatic, hearing grossly normal bilaterally, external nose normal and moist oral mucous membranes Face and sinus: normal facial exam Nose: external nose normal Eye Common normals: PERRL, EOMs intact bilaterally, conjunctivae normal and no scleral icterus Alignment: alignment normal Eyelid: eyelids normal Chest Common normals: inspection of chest normal Chest: symmetrical chest wall rise Respiratory Common normals: normal respiratory effort, no retractions, no use of accessory muscles and clear to auscultation bilaterally Effort & inspection: able to speak in complete sentences Auscultation: rales (Fine, micha, LLL) and diminished lung sounds (RLL) Cardio Common normals: no JVD, regular rate, regular rhythm, S1 normal heart sound, S2 normal heart sound, no gallops, no clicks, no murmurs, no rub and peripheral pulses 2+ throughout Heart sounds: murmur (HSM 4/6) GI Common normals: Normal to inspection, nondistended, normoactive bowel sounds pre sent, soft to palpation, no hepatosplenomegaly, no masses and no bruits Inspection: other (R sided periumbilical hernia, reducible) Palpation: tender (Mild, non-focal RUQ) Bladder/kidney exam: bladder normal to palpation Back & Pelvis Common normals: thoracic and lumbar spine normal to inspection Extremity Common normals: normal capillary refill and no pedal edema General: normal exam except as noted; no clubbing and no cyanosis Neuro Tim Coma Scale: GCS not evaluated Common normals: CN's II-XII intact bilaterally, moves all extremities, no focal motor deficits and no sensory deficits noted Motor exam: strength 5/5 throughout Psych Common normals: mental status grossly normal, thought process normal, affect normal and activity/motor behavior normal Results Labs Labs: Short CBC 03/21/23 03/22/23 Range/Units 19:11 03:53 WBC 12.4 H 20.5 H (4.0-11.0) 10^3/uL Hgb 11.3 L 12.1 (12.0-16.0) g/dL Hct 35.7 L 40.3 (36.0-48.0) % Plt Count 197 254 (150-450) 10^3/uL BMP 03/21/23 03/22/23 03/22/23 19:11 03:53 09:05 Sodium 139 143 141 Potassium 3.2 L 2.6 L* 3.6 Chloride 96 L 97 L 98 Carbon Dioxide 32.3 H 31.7 32.8 H BUN 35.0 H 37.0 H 34.0 H Creatinine 2.55 H 2.55 H 2.21 H Glucose 159 H 141 H 115 H Calcium 5.5 L* 6.1 L 5.4 L* Liver Function 03/21/23 03/22/23 Range/Units 19:11 09:05 Total Bilirubin 0.6 0.5 (0.2-1.0) mg/dL AST 27 25 (15-37) U/L ALT 23 19 (14-59) U/L Alkaline Phosphatase 104 88 (46-116) U/L Albumin 2.9 L 2.6 L (3.4-5.0) g/dL Urine 03/21/23 Range/Units 20:45 Urine Color Lt. yellow (YELLOW) Urine Clarity Clear (CLEAR) Urine pH 5.5 (5.0-9.0) Ur Specific [place] 1.020 (1.005-1.025) Urine Protein 100 A (NEG/TRACE) mg/dL Urine Glucose (UA) 250 A (NEGATIVE) mg/dL Pulse Oximetry Attestation: I have reviewed the pertinent pulse oximetry results. Imaging CT scan - head: Attestation: I have reviewed the pertinent imaging results. Radiologist's impression: Impression: Study limited by motion degraded artifact. 1. No acute intracranial process. 2. 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 Chest x-ray: Attestation: I have reviewed the pertinent imaging results. Radiologist's impression: IMPRESSION: 1. No acute cardiopulmonary process. 2. Stable mild cardiomegaly. Assessment and Plan Assessment and Plan (1) Generalized seizure: Assessment and Plan: ACUTE * Adm inpatient * Unclear etiology - likely electrolyte disturbances but r/o other etiologies * see electrolyte disturbances below * c/s TeleNeurology * Continue IV Keppra 500 BID, 1000mg loading dose given last night * MRI brain w/o contrast d/t renal fx - r/o mass or acute CVA * Seizure precautions * CBC, CMP in AM (2) Hypomagnesemia: Assessment and Plan: ACUTE * Mag level 0.7 in ED * 2gm Mag sulfate given in ED * Repeat mag level to day is 1.3 * Give additional 4gm mag sulfate now * repeat mag level at 1400 * Check Phos level and replete if indicated * Mag in AM (3) Hypokalemia: Assessment and Plan: ACUTE * K+ 3.2 in ED, dropped to 2.6 on early am labs * Treated w/ 40 meq KCL PO & IVP - still infusing * repeat BMP at 0900 and replete further if indicated * CMP in AM (4) Hypocalcemia: Assessment and Plan: ACUTE * Ca 5.5 in the ED, Corrected Calcium 6.4 * Calcium gluconate 1gm given in ED * Repeat Ca 6.1, CC 7.0 * Calcium carbonate originally planned, but d/t pt's difficulty swallowing pills, we'll give an additional 1gm calcium gluconate (5) UTI (urinary tract infection): Assessment and Plan: ACUTE * UA positive in ED - Cx pending * Continue IVPB Cipro pending culture results (6) Acute kidney injury superimposed on CKD: Assessment and Plan: ACUTE * ELI on CKD 3b/4 at baseline * Baseline: BUN 16-25, CR 1.6-1.85, GFR 26-33 * IVF at 100/hr * Treat UTI * Hold renal toxic meds including farxiga and lisinopril * CMP in AM (7) 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 * Continue PO vancomycin * Monitor output (8) Atrial fibrillation: Assessment and Plan: CHRONIC * Continue Lopressor for rate control * Continue eliquis for CVA prevention * cardiac monitoring (9) CHF (congestive heart failure): Assessment and Plan: CHRONIC * Hold home bumex and metolazone for now during IVF administration * daily weights, I&O (10) Depression: Assessment and Plan: CHRONIC * Continue home fluoxetine (11) Diabetes: Assessment and Plan: CHRONIC * Hold home farxiga during acute hospitalization * ACHS glucometer checks * Med SS insulin for glucose correction Qualifiers: Diabetes mellitus type: type 2 Diabetes mellitus meterman insulin use: with nursing home use Diabetes mellitus complication status: with kidney complications Diabetes mellitus complication detail: with chronic kidney disease Chronic kidney disease stage: stage 3 (moderate) Chronic kidney disease stage 3 subtype: stage 3a (GFR 45-59) Qualified Code(s): E11.22 - Type 2 diabetes mellitus with diabetic chronic kidney disease; N18.31 - Chronic kidney disease, stage 3a; 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
[2023-03-22 13:26] LABS: Magnesium 2.4 mg/dL (1.8-2.4); Potassium 3.1 mmol/L (3.5-5.1)
[2023-03-22] MEDS: NYSTATIN 15 GM POWDER 1 APPLIC TOPICAL ×2 (13:35→22:07)
--- NOTE | 2023-03-22 14:36 | CM.NOTE ---
Elton Txt sent to [facility] for PT and OT orders.
[2023-03-22] MEDS: POTASSIUM CHLORIDE 40 MEQ in 0.9 % SODIUM CHLORIDE 250 ML 67.5 MEQ IV (16:11)
--- NOTE | 2023-03-22 16:11 | CM.NOTE ---
Updates faxed to [facility].
[2023-03-22 16:23] LABS: Glucometer 117 mg/dL (74-106)
--- NOTE | 2023-03-22 16:41 | PC.NURSE ---
1343 Telehealth Assessment completed with Dr. Triston Garcia and [facility]. Patient is to have q4h neuro checks, stay of Keppra 500 mg BID, and have the EEG done. 1359 Called cardiopulmonary and spoke with Laverne. States that per Dr. Mine Uriarte and Clovis Carpio, HYPERBARIC NURSE that EEG was to be cancelled as she already had one done on 03/10/2023. Advised that this nurse was not made aware of this and would clarify with physician and HYPERBARIC NURSE. 1401 Contacted Navin Carpio via [place] Text for clarification of cancellation of EEG testing even with the additional seizures that were witnessed since admission. 1408 Hilary clarified that the EEG was to be canceled unless a repeat EEG was to be done per neurology since there was one just completed. 1410 Left detailed message with [facility] [phone], inquiring if Dr. Adolfo Garcia was wanting a repeat EEG on patient. Requested a call back. 1608 Received call back from [facility]. States that patient is to have the EEG done, even if there was one done last week due to the more frequent seizures. [facility] states that the only reason it did not need to be repeated would be if the report could be located and if it actually showed an abnormal results as this may show why the seizures are happening. If it was normal the EEG was to be repeated. Advised [facility] would attempt to have report placed into chart. Call was placed to radiology department to determine if an EEG was done and if report could be retrieved at this time. No EEG was done on 03/10/2023 per radiology department. [address] Garcia, and reassurance was given that order would be placed and that it would be followed up with in the morning. Orders were placed, and Dr. Uriarte and Navin Carpio and advised that patient was to have the EEG done. 1648 Spoke with Navin Carpio. Verbal orders given for EEG to be done STAT first thing tomorrow morning.
[2023-03-22] MEDS: VANCOMYCIN HCL 7,500 MG/150 ML BOTTLE 125 MG PO ×2 (17:37→22:18)
[2023-03-22 22:17] LABS: Glucometer 151 mg/dL (74-106)
[2023-03-23] VITALS (121 sets, daily range): BP systolic 100–165; BP diastolic 72–80; PULSE 70–112; RESP 13–87; TEMP 36.1–36.8; O2SAT 71–97
[2023-03-23] MEDS: 0.9 % SODIUM CHLORIDE 1,000 ML 100 ML IV (01:55)
[2023-03-23] MEDS: ALBUTEROL SULFATE 2.5 MG/3 ML VIAL NEB IH ×4 (04:25→20:05)
[2023-03-23] MEDS: LEVETIRACETAM 500 MG in 0.9 % SODIUM CHLORIDE 100 ML 420 MG IV ×2 (05:37→16:47)
[2023-03-23] MEDS: NEOMYCIN/POLYMYXIN B/HYDROCORTISONE OTIC SUSP 200 DROP/10 ML BOTTLE OT ×6 (05:38→23:31)
[2023-03-23] MEDS: VANCOMYCIN HCL 7,500 MG/150 ML BOTTLE 125 MG PO ×4 (05:39→21:27)
[2023-03-23] MEDS: NYSTATIN 15 GM POWDER 1 APPLIC TOPICAL ×3 (05:39→21:25)
[2023-03-23] MEDS: CIPROFLOXACIN IN 5 % DEXTROSE 400 MG/200 ML PIGGYBACK 200 MG IV (05:40)
[2023-03-23 07:01] LABS: Basophils Absolute Auto 0.1 10^3/uL (0.0-0.1); Basophils Percent Auto 0.6 % (0.2-2.0); Eosinophils Absolute Auto 0.2 10^3/uL (0.0-0.7); Eosinophils Percent Auto 1.5 % (0.9-7.0); Hematocrit 31.1 % (36.0-48.0); Hemoglobin 9.6 g/dL (12.0-16.0); Immature Granulocytes Abs Auto 0.04 10^3/uL (0.00-0.03); Immature Granulocytes Pct Auto 0.4 % (0.0-0.5); Lymphocytes Absolute Auto 1.6 10^3/uL (1.2-3.8); Lymphocytes Percent Auto 15.5 % (20.5-60.0); Mean Corpuscular HGB Conc 30.9 g/dL (29.9-35.2); Mean Corpuscular Hemoglobin 30.1 pg (26.7-34.0); Mean Corpuscular Volume 97.5 fL (81.0-99.0); Mean Platelet Volume 9.6 fL (9.5-13.5); Monocytes Absolute Auto 0.6 10^3/uL (0.3-0.8); Monocytes Percent Auto 6.2 % (1.7-12.0); Neutrophils Absolute Auto 7.7 10^3/uL (1.4-6.5); Neutrophils Percent Auto 75.8 % (43.0-75.0); Platelet Count 167 10^3/uL (150-450); Red Blood Count 3.19 10^6/uL (4.20-5.40); Red Cell Distribution Width 14.9 % (11.0-15.0); White Blood Count 10.1 10^3/uL (4.0-11.0)
[2023-03-23 07:24] LABS: Alanine Aminotransferase 22 U/L (14-59); Albumin Globulin Ratio 0.6; Albumin Level 2.5 g/dL (3.4-5.0); Alkaline Phosphatase 80 U/L (46-116); Anion Gap 13.6; Aspartate Amino Transferase 23 U/L (15-37); BUN Creatinine Ratio 13.8; Bilirubin Total 0.7 mg/dL (0.2-1.0); Carbon Dioxide 29.9 mmol/L (21.0-32.0); Chloride 99 mmol/L (98-107); Estimated GFR (African America 30 (>=60); Estimated GFR (Non-African Ame 25 (>=60); Globulin 4.1 g/dL; Glucose 170 mg/dL (74-106); Potassium 3.5 mmol/L (3.5-5.1); Sodium 139 mmol/L (136-145); Total Protein 6.6 g/dL (6.4-8.2)
[2023-03-23 07:28] LABS: Magnesium 1.9 mg/dL (1.8-2.4); Phosphorus 3.5 mg/dL (2.6-4.7)
[2023-03-23 07:57] LABS: Calcium 5.5 mg/dL (8.5-10.1)
[2023-03-23 08:34] LABS: Glucometer 155 mg/dL (74-106)
[2023-03-23] MEDS: ATORVASTATIN CALCIUM 20 MG TABLET PO (08:36)
[2023-03-23] MEDS: OMEPRAZOLE 40 MG CAPSULE.DR PO ×2 (08:37→21:23)
[2023-03-23] MEDS: APIXABAN 5 MG TABLET PO ×2 (08:37→21:23)
[2023-03-23] MEDS: MAGNESIUM OXIDE 400 MG TABLET PO ×2 (08:37→21:23)
[2023-03-23] MEDS: FLUOXETINE HCL 20 MG CAPSULE 40 MG PO (08:37)
[2023-03-23] MEDS: BREXPIPRAZOLE 1 MG PO (08:37)
[2023-03-23] MEDS: METOPROLOL TARTRATE 50 MG TABLET PO ×2 (08:37→21:23)
[2023-03-23] MEDS: INSULIN ASPART 300 UNIT/3 ML PEN SUBQ ×2 (08:41→22:12)
--- NOTE | 2023-03-23 09:01 | CM.NOTE ---
Updates sent to [facility].
--- NOTE | 2023-03-23 09:09 | CM.NOTE ---
Rounds made with Dr. Uriarte. Plan for EEG. No discharge today.
--- NOTE | 2023-03-23 09:53 | P.PN_ITS ---
agree with PE findings and plans as outlined. BP up at times - may nee meds adjuted - cont wiht plan to avoid loni Progress Note: Subjective Subjective Interval history: Date/time of exam: 03/23/23 07 The patient is resting in bed at time of my exam. She appears much improved with a brighter countenance today. She endorses feeling much better and is A&O x 3. She did have several episodes of large diarrhea overnight per nursing, but the patient reports the frequency is slowing with improved consistency of stools. No further seizure episodes occurred overnight and she has been without seizures for a little over 24 hours at this time. We plan to obtain an EEG this morning and we will continue to follow teleneurology recommendations for treatment and care. Nursing also reports that she had no difficulty swallowing her AM pills today. FIRMWARE SOFTWARE VERIFICATION ENGINEER eval is pending. As her electrolyte disturbances appear to be resolving, and if her seizures remain controlled, discharge is possible in the next 24 to 48 hours pending clinical course. Exam Constitutional Vital Signs, click to edit/add: Last Vital Signs Temp 98.1 F 03/23/23 08:30 Pulse 88 03/23/23 09:12 Resp 16 03/23/23 09:12 BP 100/73 03/23/23 07:36 Pulse Ox 94 L 03/23/23 09:19 O2 Del Method Nasal Cannula 03/23/23 05:00 O2 Flow Rate 2 03/23/23 08:30 Common normals: no apparent distress, oriented x3 and alert General appearance: cooperative Orientation/consciousness: Yes awake [facility] Common normals: normocephalic, head/scalp atraumatic and hearing grossly normal bilaterally Eye Common normals: PERRL, EOMs intact bilaterally, conjunctivae normal and no scleral icterus Chest Common normals: inspection of chest normal Chest: symmetrical chest wall rise Respiratory Common normals: normal respiratory effort, no use of accessory muscles and clear to auscultation bilaterally Effort & inspection: able to speak in complete sentences Cardio Common normals: regular rate, regular rhythm, S1 normal heart sound, S2 normal heart sound, no murmurs and peripheral pulses 2+ throughout Heart sounds: murmur (HSM 3/6) GI Common normals: Normal to inspection, nondistended, normoactive bowel sounds present, soft to palpation, non-tender and no hepatosplenomegaly Bladder/kidney exam: bladder normal to palpation Extremity Common normals: normal to inspection and no calf tenderness General: no clubbing, no cyanosis and no edema Neuro Common normals: oriented x3, CN's II-XII intact bilaterally, moves all extremities, no focal motor deficits and no sensory deficits noted Sensorium/orientation: awake and alert Psych Common normals: mental status grossly normal Progress Note: Objective Labs Labs: Short CBC 03/23/23 Range/Units 06:08 WBC 10.1 (4.0-11.0) 10^3/uL Hgb 9.6 L (12.0-16.0) g/dL Hct 31.1 L (36.0-48.0) % Plt Count 167 (150-450) 10^3/uL BMP 03/22/23 03/23/23 13:09 06:08 Sodium 139 Potassium 3.1 L 3.5 Chloride 99 Carbon Dioxide 29.9 BUN 27.0 H Creatinine 1.95 H Glucose 170 H Calcium 5.5 L* Liver Function 03/23/23 Range/Units 06:08 Total Bilirubin 0.7 (0.2-1.0) mg/dL AST 23 (15-37) U/L ALT 22 (14-59) U/L Alkaline Phosphatase 80 (46-116) U/L Albumin 2.5 L (3.4-5.0) g/dL Imaging MRI - head: Attestation: I have reviewed the pertinent imaging results. Radiologist's impression: IMPRESSION: Incomplete study. No diffusion abnormality to suggest acute CVA. Progress Note: A&P Assessment and Plan (1) Generalized seizure: Assessment and Plan: ACUTE * No further seizures overnight - remained seizure free for more than 24 hrs * Unclear etiology - likely electrolyte disturbances but r/o other etiologies * see electrolyte disturbances below * No evidence of acute CVA on MRI head * c/s TeleNeurology * Repeat EEG recommended * Plan to continue Keppra PO at d/c unless otherwise directed by teleneurology * Continue IV Keppra 500 BID. * Seizure precautions * CBC, CMP in AM (2) Hypomagnesemia: Assessment and Plan: ACUTE * Resolving * Mag level 1.9 today * Continue mag oxide PO BID * Phos level remains WNL * Mag in AM (3) Hypokalemia: Assessment and Plan: ACUTE * K+ 3.5 today after aggressive repletion yesterday * Give additional 40 meq KCL IVP as pt continues to have significant GI losses from diarrhea * CMP in AM (4) Hypocalcemia: Assessment and Plan: ACUTE * Ca 5.5 today, Corrected Calcium 6.7 * Calcium carbonate scheduled TID * Consider further calcium gluconate dosing pending clinical course * CMP in AM (5) UTI (urinary tract infection): Assessment and Plan: ACUTE * UA positive in ED - Cx pending * Continue IVPB Cipro pending culture results * Previous UA from 03/09/23 grew out e-faecalis, sensitive to cipro * Previous UA from 12/19/22 grew out klebsiella pneumoniae, sensitive to cipro (6) Acute kidney injury superimposed on CKD: Assessment and Plan: ACUTE Laboratory Tests 03/23/23 06:08 BUN 27.0 H Creatinine 1.95 H Est GFR (Non-Af Amer) 25 L * ELI on CKD 3b/4 at baseline * Baseline: BUN 16-25, CR 1.6-1.85, GFR 26-33 * Improving * Reduce IVF to 75/hr for more gentle hydration * Treat UTI * Continue to hold renal toxic meds including farxiga and lisinopril * CMP in AM (7) 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 * Several episodes of diarrhea noted by nursing overnight - less frequent per pt * Continue PO vancomycin * Monitor output (8) Atrial fibrillation: Assessment and Plan: CHRONIC * Continue Lopressor for rate control * Continue eliquis for CVA prevention * cardiac monitoring (9) CHF (congestive heart failure): Assessment and Plan: CHRONIC * Hold home bumex and metolazone for now during IVF administration * daily weights, I&O (10) Depression: Assessment and Plan: CHRONIC * Continue home fluoxetine (11) Diabetes: Assessment and Plan: CHRONIC * Hold home farxiga during acute hospitalization * ACHS glucometer checks * Med SS insulin for glucose correction Qualifiers: Chronic kidney disease stage: stage 3 (moderate) Chronic kidney disease stage 3 subtype: stage 3a (GFR 45-59) Diabetes mellitus complication detail: with chronic kidney disease Diabetes mellitus complication status: with kidney complications Diabetes mellitus intermediate insulin use: with intermediate use Diabetes mellitus type: type 2 Qualified Code(s): E11.22 - Type 2 diabetes mellitus with diabetic chronic kidney disease; N18.31 - Chronic kidney disease, stage 3a; 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
--- NOTE | 2023-03-23 09:53 | PM.PN ---
Progress Note: Subjective Subjective Interval history: Date/time of exam: 03/23/23 0725 The patient is resting in bed at time of my exam. She appears much improved with a brighter countenance today. She endorses feeling much better and is A&O x 3. She did have several episodes of large diarrhea overnight per nursing, but the patient reports the frequency is slowing with improved consistency of stools. No further seizure episodes occurred overnight and she has been without seizures for a little over 24 hours at this time. We plan to obtain an EEG this morning and we will continue to follow teleneurology recommendations for treatment and care. Nursing also reports that she had no difficulty swallowing her AM pills today. MARKER MACHINE eval is pending. As her electrolyte disturbances appear to be resolving, and if her seizures remain controlled, discharge is possible in the next 24 to 48 hours pending clinical course. Exam Constitutional Vital Signs, click to edit/add: Last Vital Signs Temp 98.1 F 03/23/23 08:30 Pulse 88 03/23/23 09:12 Resp 16 03/23/23 09:12 BP 100/73 03/23/23 07:36 Pulse Ox 94 L 03/23/23 09:19 O2 Del Method Nasal Cannula 03/23/23 05:00 O2 Flow Rate 2 03/23/23 08:30 Common normals: no apparent distress, oriented x3 and alert General appearance: cooperative Orientation/consciousness: Yes awake HENTX Common normals: normocephalic, head/scalp atraumatic and hearing grossly normal bilaterally Eye Common normals: PERRL, EOMs intact bilaterally, conjunctivae normal and no scleral icterus Chest Common normals: inspection of chest normal Chest: symmetrical chest wall rise Respiratory Common normals: normal respiratory effort, no use of accessory muscles and clear to auscultation bilaterally Effort & inspection: able to speak in complete sentences Cardio Common normals: regular rate, regular rhythm, S1 normal heart sound, S2 normal heart sound, no murmurs and peripheral pulses 2+ throughout Heart sounds: murmur (HSM 3/6) GI Common normals: Normal to inspection, nondistended, normoactive bowel sounds present, soft to palpation, non-tender and no hepatosplenomegaly Bladder/kidney exam: bladder normal to palpation Extremity Common normals: normal to inspection and no calf tenderness General: no clubbing, no cyanosis and no edema Neuro Common normals: oriented x3, CN's II-XII intact bilaterally, moves all extremities, no focal motor deficits and no sensory deficits noted Sensorium/orientation: awake and alert Psych Common normals: mental status grossly normal Progress Note: Objective Labs Labs: Short CBC 03/23/23 Range/Units 06:08 WBC 10.1 (4.0-11.0) 10^3/uL Hgb 9.6 L (12.0-16.0) g/dL Hct 31.1 L (36.0-48.0) % Plt Count 167 (150-450) 10^3/uL BMP 03/22/23 03/23/23 13:09 06:08 Sodium 139 Potassium 3.1 L 3.5 Chloride 99 Carbon Dioxide 29.9 BUN 27.0 H Creatinine 1.95 H Glucose 170 H Calcium 5.5 L* Liver Function 03/23/23 Range/Units 06:08 Total Bilirubin 0.7 (0.2-1.0) mg/dL AST 23 (15-37) U/L ALT 22 (14-59) U/L Alkaline Phosphatase 80 (46-116) U/L Albumin 2.5 L (3.4-5.0) g/dL Imaging MRI - head: Attestation: I have reviewed the pertinent imaging results. Radiologist's impression: IMPRESSION: Incomplete study. No diffusion abnormality to suggest acute CVA. Progress Note: A&P Assessment and Plan (1) Generalized seizure: Assessment and Plan: ACUTE No further seizures overnight - remained seizure free for more than 24 hrs Unclear etiology - likely electrolyte disturbances but r/o other etiologies see electrolyte disturbances below No evidence of acute CVA on MRI head c/s TeleNeurology Repeat EEG recommended Plan to continue Keppra PO at d/c unless otherwise directed by teleneurology Continue IV Keppra 500 BID. Seizure precautions CBC, CMP in AM (2) Hypomagnesemia: Assessment and Plan: ACUTE Resolving Mag level 1.9 today Continue mag oxide PO BID Phos level remains WNL Mag in AM (3) Hypokalemia: Assessment and Plan: ACUTE K+ 3.5 today after aggressive repletion yesterday Give additional 40 meq KCL IVP as pt continues to have significant GI losses from diarrhea CMP in AM (4) Hypocalcemia: Assessment and Plan: ACUTE Ca 5.5 today, Corrected Calcium 6.7 Calcium carbonate scheduled TID Consider further calcium gluconate dosing pending clinical course CMP in AM (5) UTI (urinary tract infection): Assessment and Plan: ACUTE UA positive in ED - Cx pending Continue IVPB Cipro pending culture results Previous UA from 03/09/23 grew out e-faecalis, sensitive to cipro Previous UA from 12/19/22 grew out klebsiella pneumoniae, sensitive to cipro (6) Acute kidney injury superimposed on CKD: Assessment and Plan: ACUTE Laboratory Tests 03/23/23 06:08 BUN 27.0 H Creatinine 1.95 H Est GFR (Non-Af Amer) 25 L ELI on CKD 3b/4 at baseline Baseline: BUN 16-25, CR 1.6-1.85, GFR 26-33 Improving Reduce IVF to 75/hr for more gentle hydration Treat UTI Continue to hold renal toxic meds including farxiga and lisinopril CMP in AM (7) 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 Several episodes of diarrhea noted by nursing overnight - less frequent per pt Continue PO vancomycin Monitor output (8) Atrial fibrillation: Assessment and Plan: CHRONIC Continue Lopressor for rate control Continue eliquis for CVA prevention cardiac monitoring (9) CHF (congestive heart failure): Assessment and Plan: CHRONIC Hold home bumex and metolazone for now during IVF administration daily weights, I&O (10) Depression: Assessment and Plan: CHRONIC Continue home fluoxetine (11) Diabetes: Assessment and Plan: CHRONIC Hold home farxiga during acute hospitalization ACHS glucometer checks Med SS insulin for glucose correction Qualifiers: Chronic kidney disease stage: stage 3 (moderate) Chronic kidney disease stage 3 subtype: stage 3a (GFR 45-59) Diabetes mellitus complication detail: with chronic kidney disease Diabetes mellitus complication status: with kidney complications Diabetes mellitus termite treater helper insulin use: with termite treater helper use Diabetes mellitus type: type 2 Qualified Code(s): E11.22 - Type 2 diabetes mellitus with diabetic chronic kidney disease; N18.31 - Chronic kidney disease, stage 3a; Z79.4 - termite treater helper (current) use of insulin (12) Hypertension: Assessment and Plan: CHRONIC Continue home BB Continue to hold LONI d/t renal toxicity Add PRN Hydralazine for uncontrolled HTN
[2023-03-23] MEDS: BUDESONIDE 0.5 MG/2 ML AMPULE NEB IH ×2 (10:25→20:05)
[2023-03-23] MEDS: POTASSIUM CHLORIDE 40 MEQ in 0.9 % SODIUM CHLORIDE 250 ML 67.5 MEQ IV (10:56)
[2023-03-23] MEDS: INSULIN DETEMIR 300 UNIT/3 ML INSULN.PEN SUBQ ×2 (11:00→22:11)
[2023-03-23 12:09] LABS: Glucometer 184 mg/dL (74-106)
[2023-03-23 13:33] LABS: C. Difficile PCR NEGATIVE (NEGATIVE)
[2023-03-23 14:09] LABS: Calcium, Ionized, Serum <3.0 mg/dL (4.5-5.6)
[2023-03-23] MEDS: CALCIUM CARBONATE 500 MG (200MG ELEMENTAL) TAB CHEW PO ×2 (14:12→21:23)
--- NOTE | 2023-03-23 14:28 | CM.NOTE ---
Discussed PT recommendations with pt and daughter, both continue to refused skilled therapy. Daughter states they have went skilled a couple times and the care received was not good. They would just let her sit in her wheelchair all day long. Pt and daughter want to return home with [facility].
[2023-03-23 16:46] LABS: Glucometer 170 mg/dL (74-106)
--- NOTE | 2023-03-23 20:22 | RESP.RT ---
Pt wears 3L at home
[2023-03-23 20:32] LABS: Glucometer 155 mg/dL (74-106)
[2023-03-23] MEDS: 0.9 % SODIUM CHLORIDE 1,000 ML 75 ML IV (21:26)
[2023-03-24] VITALS (24 sets, daily range): BP systolic 144–157; BP diastolic 73–81; PULSE 69–91; RESP 18–22; TEMP 36.4–37; O2SAT 85–100
[2023-03-24] MEDS: ALBUTEROL SULFATE 2.5 MG/3 ML VIAL NEB IH ×4 (04:02→21:33)
[2023-03-24] MEDS: NEOMYCIN/POLYMYXIN B/HYDROCORTISONE OTIC SUSP 200 DROP/10 ML BOTTLE OT ×5 (04:16→21:38)
[2023-03-24] MEDS: CIPROFLOXACIN IN 5 % DEXTROSE 400 MG/200 ML PIGGYBACK 200 MG IV (04:20)
--- NOTE | 2023-03-24 04:22 | RESP.RT ---
titrated up to 4L with significant increase in SpO2 to 97%.
[2023-03-24 05:47] LABS: Basophils Percent Auto 0.4 % (0.2-2.0); Eosinophils Absolute Auto 0.1 10^3/uL (0.0-0.7); Eosinophils Percent Auto 0.5 % (0.9-7.0); Hematocrit 30.7 % (36.0-48.0); Hemoglobin 9.7 g/dL (12.0-16.0); Immature Granulocytes Abs Auto 0.06 10^3/uL (0.00-0.03); Immature Granulocytes Pct Auto 0.5 % (0.0-0.5); Lymphocytes Absolute Auto 1.6 10^3/uL (1.2-3.8); Lymphocytes Percent Auto 14.4 % (20.5-60.0); Mean Corpuscular HGB Conc 31.6 g/dL (29.9-35.2); Mean Corpuscular Hemoglobin 30.4 pg (26.7-34.0); Mean Corpuscular Volume 96.2 fL (81.0-99.0); Mean Platelet Volume 9.8 fL (9.5-13.5); Monocytes Absolute Auto 0.7 10^3/uL (0.3-0.8); Monocytes Percent Auto 6.7 % (1.7-12.0); Neutrophils Absolute Auto 8.5 10^3/uL (1.4-6.5); Neutrophils Percent Auto 77.5 % (43.0-75.0); Platelet Count 200 10^3/uL (150-450); Red Blood Count 3.19 10^6/uL (4.20-5.40); Red Cell Distribution Width 15.1 % (11.0-15.0)
[2023-03-24] MEDS: CALCIUM CARBONATE 500 MG (200MG ELEMENTAL) TAB CHEW PO ×3 (05:58→21:40)
[2023-03-24] MEDS: LEVETIRACETAM 500 MG in 0.9 % SODIUM CHLORIDE 100 ML 420 MG IV (05:58)
[2023-03-24] MEDS: NYSTATIN 15 GM POWDER 1 APPLIC TOPICAL ×3 (05:59→21:39)
[2023-03-24] MEDS: VANCOMYCIN HCL 7,500 MG/150 ML BOTTLE 125 MG PO ×4 (06:00→21:39)
[2023-03-24 06:02] LABS: Alanine Aminotransferase 20 U/L (14-59); Albumin Globulin Ratio 0.6; Albumin Level 2.6 g/dL (3.4-5.0); Alkaline Phosphatase 70 U/L (46-116); Anion Gap 13.3; Aspartate Amino Transferase 22 U/L (15-37); BUN Creatinine Ratio 14.2; Bilirubin Total 0.9 mg/dL (0.2-1.0); Carbon Dioxide 29.6 mmol/L (21.0-32.0); Chloride 102 mmol/L (98-107); Estimated GFR (African America 33 (>=60); Estimated GFR (Non-African Ame 27 (>=60); Globulin 4.4 g/dL; Glucose 142 mg/dL (74-106); Potassium 3.9 mmol/L (3.5-5.1); Sodium 141 mmol/L (136-145)
[2023-03-24 06:06] LABS: Magnesium 1.7 mg/dL (1.8-2.4)
[2023-03-24 06:24] LABS: Calcium 5.9 mg/dL (8.5-10.1)
[2023-03-24] MEDS: MAGNESIUM SULFATE IN WATER 2 GM/50 ML PREMIX IV (06:32)
--- NOTE | 2023-03-24 08:30 | XR_ITS ---
The [address] [address] Patient Name: MARTIN HAGEN MRN: [id number] date: 1950 Sex: F Assigned Patient Location: [place] Current Patient Location: [place] Accession/Order Number: [id number] Exam Date: 03/24/2023 08:41 Report Date: 03/24/2023 10:04 At the request of: DANIEL AGEE Procedure: XR chest 1V EXAMINATION: XR chest 1V HISTORY: shortness of breath COMPARISON: XR chest 03/22/2023, 10/11/2022 FINDINGS: LUNGS: Trace amount of peripheral septal thickening. No focal opacities or nodules. VASCULATURE: No increased pulmonary vasculature. PLEURA: No pneumothorax, effusion, or pleural thickening. CARDIAC: Stable cardiomegaly. MEDIASTINUM: No visible mass or adenopathy. BONES: Remote left humeral neck fracture. OTHER: Negative. XR/XR chest 1V IMPRESSION: 1. Stable cardiomegaly and trace amount of peripheral septal thickening; possibly mild pulmonary edema. Electronically authenticated by: ANITA KEYS Date: 03/24/2023 10:04
[2023-03-24 09:14] LABS: NT Pro B Type Natriuretic Pept >35000.0 pg/mL (<=900.0)
[2023-03-24] MEDS: ATORVASTATIN CALCIUM 20 MG TABLET PO (09:45)
[2023-03-24] MEDS: APIXABAN 5 MG TABLET PO ×2 (09:45→21:40)
[2023-03-24] MEDS: BREXPIPRAZOLE 1 MG PO (09:46)
[2023-03-24] MEDS: FLUOXETINE HCL 20 MG CAPSULE 40 MG PO (09:46)
[2023-03-24] MEDS: POTASSIUM CHLORIDE 10 MEQ ER TABLET 40 MEQ PO (09:48)
[2023-03-24] MEDS: MAGNESIUM OXIDE 400 MG TABLET PO ×2 (09:48→21:40)
[2023-03-24] MEDS: OMEPRAZOLE 40 MG CAPSULE.DR PO ×2 (09:48→21:40)
[2023-03-24] MEDS: METOPROLOL TARTRATE 50 MG TABLET PO ×2 (09:48→21:40)
[2023-03-24] MEDS: FUROSEMIDE 40 MG/4 ML VIAL IVP ×2 (09:52→21:40)
--- NOTE | 2023-03-24 10:09 | P.PN_ITS ---
Agree with input from nurse practitioner note. Patient was up in chair when I saw her. Looking much improved from previous day. Did have some labored breathing. Agree with exam findings. Agree with assessment and plan. With the addition of: Possible acute blood loss anemia-check stool for occult blood. Hemoglobin down 2.5 g since admission. Progress Note: Subjective Subjective Interval history: Date/time of exam: 03/24/23 0810 The patient is resting in bed at time of my exam. She appears much improved with a brighter countenance today, but with a increased WOB noted. She denies SOB and endorses feeling much better and is A&O x 3. She has remained seizure free for more than 48 hrs and is tolerating Keppra dosing well. She is back on her usual 3L O2 supplementation but was bumped up to 4L briefly overnight d/t an episode of hypoxia. Her IVFs were S.L. this morning but a BNP is elevated concerning for fluid overload as her home diuretic has been on hold and she has been on IVF for dehydration d/t diarrhea. IVP Lasix was initiated today w/ supplemental KCL to prevent recurrent hypokalemia. She is improving and discharge is likely in the next 24-48 hrs. Exam Constitutional Vital Signs, click to edit/add: Last Vital Signs Temp 97.8 F 03/24/23 08:00 Pulse 84 03/24/23 09:58 Resp 20 03/24/23 08:00 BP 144/76 H 03/24/23 08:00 Pulse Ox 95 03/24/23 08:00 O2 Del Method Nasal Cannula 03/24/23 08:00 O2 Flow Rate 3 03/24/23 08:00 Common normals: no apparent distress, oriented x3 and alert General appearance: cooperative Orientation/consciousness: Yes awake [facility] Common normals: normocephalic, head/scalp atraumatic and hearing grossly normal bilaterally Eye Common normals: PERRL, EOMs intact bilaterally, conjunctivae normal and no scleral icterus General eye: normal appearance of both eyes Chest Common normals: inspection of chest normal Chest: symmetrical chest wall rise Respiratory Common normals: normal respiratory effort Effort & inspection: able to speak in complete sentences and uses accessory muscles (Mild ) Auscultation: crackles (Fine scattered rales BLL) Cardio Common normals: regular rate, regular rhythm, S1 normal heart sound, S2 normal heart sound, no murmurs and peripheral pulses 2+ throughout Heart sounds: murmur (HSM 2/6) GI Common normals: Normal to inspection, nondistended, normoactive bowel sounds present, soft to palpation, non-tender and no hepatosplenomegaly Palpation: soft and no hepatosplenomegaly Bladder/kidney exam: bladder normal to palpation Extremity Common normals: normal to inspection and no calf tenderness General: edema (Trace bilat ankles); no clubbing and no cyanosis Neuro Common normals: CN's II-XII intact bilaterally, moves all extremities, no focal motor deficits and no sensory deficits noted Psych Common normals: mental status grossly normal Progress Note: Objective Labs Labs: Short CBC 03/24/23 Range/Units 04:27 WBC 11.0 (4.0-11.0) 10^3/uL Hgb 9.7 L (12.0-16.0) g/dL Hct 30.7 L (36.0-48.0) % Plt Count 200 (150-450) 10^3/uL BMP 03/24/23 04:27 Sodium 141 Potassium 3.9 Chloride 102 Carbon Dioxide 29.6 BUN 26.0 H Creatinine 1.83 H Glucose 142 H Calcium 5.9 L* Liver Function 03/24/23 Range/Units 04:27 Total Bilirubin 0.9 (0.2-1.0) mg/dL AST 22 (15-37) U/L ALT 20 (14-59) U/L Alkaline Phosphatase 70 (46-116) U/L Albumin 2.6 L (3.4-5.0) g/dL Progress Note: A&P Assessment and Plan (1) Generalized seizure: Assessment and Plan: ACUTE * No further seizures overnight - remained seizure free for more than 48 hrs * Unclear etiology - likely electrolyte disturbances but r/o other etiologies * see electrolyte disturbances below * No evidence of acute CVA on MRI head * c/s TeleNeurology * Repeat EEG recommended - obtained 03/23/23, no read by neurology yet * Plan to continue Keppra PO at d/c unless otherwise directed by teleneurology * Continue IV Keppra 500 BID for now * Seizure precautions * CBC, CMP in AM (2) Hypomagnesemia: Assessment and Plan: ACUTE * Recurrent, mild * Mag level 1.7 today * give additional Mag Sulfate 2gm IVPB now * Continue mag oxide PO BID * Mag in AM (3) Hypokalemia: Assessment and Plan: ACUTE * Resolved * K+ 3.9 today * CMP in AM (4) Hypocalcemia: Assessment and Plan: ACUTE * Ca 5.9 today, Corrected Calcium 7.0 * Asymptomatic * Continue Calcium carbonate scheduled TID * Consider further calcium gluconate dosing pending clinical course * CMP in AM (5) UTI (urinary tract infection): Assessment and Plan: ACUTE * UA positive in ED * E. 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 * Increased WOB but stable SPO2 on home 3L, faint rales on exam, CXR w/ mild changes suggestive of pulmonary edema * DC IVF * Lasix 40 mg IVP BID today * Hold home bumex and metolazone for now - resume at discharge * daily weights, I&O (10) Depression: Assessment and Plan: CHRONIC * Continue home fluoxetine (11) Diabetes: Assessment and Plan: CHRONIC * Hold home farxiga during acute hospitalization * ACHS glucometer checks * Med SS insulin for glucose correction * Levemir 4 un BID Qualifiers: Chronic kidney disease stage: stage 3 (moderate) Chronic kidney disease stage 3 subtype: stage 3a (GFR 45-59) Diabetes mellitus complication detail: with chronic kidney disease Diabetes mellitus complication status: with kidney complications Diabetes mellitus snf insulin use: with equipment operator intermodal yard use Diabetes mellitus type: type 2 Qualified Code(s): E11.22 - Type 2 diabetes mellitus with diabetic chronic kidney disease; N18.31 - Chronic kidney disease, stage 3a; Z79.4 - remote computer terminal operator (current) use of insulin (12) Hypertension: Assessment and Plan: CHRONIC * Continue home BB * Continue to hold LONI d/t renal toxicity * Add PRN Hydralazine for uncontrolled HTN
--- NOTE | 2023-03-24 10:09 | PM.PN ---
Progress Note: Subjective Subjective Interval history: Date/time of exam: 03/24/23 0810 The patient is resting in bed at time of my exam. She appears much improved with a brighter countenance today, but with a increased WOB noted. She denies SOB and endorses feeling much better and is A&O x 3. She has remained seizure free for more than 48 hrs and is tolerating Keppra dosing well. She is back on her usual 3L O2 supplementation but was bumped up to 4L briefly overnight d/t an episode of hypoxia. Her IVFs were S.L. this morning but a BNP is elevated concerning for fluid overload as her home diuretic has been on hold and she has been on IVF for dehydration d/t diarrhea. IVP Lasix was initiated today w/ supplemental KCL to prevent recurrent hypokalemia. She is improving and discharge is likely in the next 24-48 hrs. Exam Constitutional Vital Signs, click to edit/add: Last Vital Signs Temp 97.8 F 03/24/23 08:00 Pulse 84 03/24/23 09:58 Resp 20 03/24/23 08:00 BP 144/76 H 03/24/23 08:00 Pulse Ox 95 03/24/23 08:00 O2 Del Method Nasal Cannula 03/24/23 08:00 O2 Flow Rate 3 03/24/23 08:00 Common normals: no apparent distress, oriented x3 and alert General appearance: cooperative Orientation/consciousness: Yes awake [facility] Common normals: normocephalic, head/scalp atraumatic and hearing grossly normal bilaterally Eye Common normals: PERRL, EOMs intact bilaterally, conjunctivae normal and no scleral icterus General eye: normal appearance of both eyes Chest Common normals: inspection of chest normal Chest: symmetrical chest wall rise Respiratory Common normals: normal respiratory effort Effort & inspection: able to speak in complete sentences and uses accessory muscles (Mild ) Auscultation: crackles (Fine scattered rales BLL) Cardio Common normals: regular rate, regular rhythm, S1 normal heart sound, S2 normal heart sound, no murmurs and peripheral pulses 2+ throughout Heart sounds: murmur (HSM 2/6) GI Common normals: Normal to inspection, nondistended, normoactive bowel sounds present, soft to palpation, non-tender and no hepatosplenomegaly Palpation: soft and no hepatosplenomegaly Bladder/kidney exam: bladder normal to palpation Extremity Common normals: normal to inspection and no calf tenderness General: edema (Trace bilat ankles); no clubbing and no cyanosis Neuro Common normals: CN's II-XII intact bilaterally, moves all extremities, no focal motor deficits and no sensory deficits noted Psych Common normals: mental status grossly normal Progress Note: Objective Labs Labs: Short CBC 03/24/23 Range/Units 04:27 WBC 11.0 (4.0-11.0) 10^3/uL Hgb 9.7 L (12.0-16.0) g/dL Hct 30.7 L (36.0-48.0) % Plt Count 200 (150-450) 10^3/uL BMP 03/24/23 04:27 Sodium 141 Potassium 3.9 Chloride 102 Carbon Dioxide 29.6 BUN 26.0 H Creatinine 1.83 H Glucose 142 H Calcium 5.9 L* Liver Function 03/24/23 Range/Units 04:27 Total Bilirubin 0.9 (0.2-1.0) mg/dL AST 22 (15-37) U/L ALT 20 (14-59) U/L Alkaline Phosphatase 70 (46-116) U/L Albumin 2.6 L (3.4-5.0) g/dL Progress Note: A&P Assessment and Plan (1) Generalized seizure: Assessment and Plan: ACUTE No further seizures overnight - remained seizure free for more than 48 hrs Unclear etiology - likely electrolyte disturbances but r/o other etiologies see electrolyte disturbances below No evidence of acute CVA on MRI head c/s TeleNeurology Repeat EEG recommended - obtained 03/23/23, no read by neurology yet Plan to continue Keppra PO at d/c unless otherwise directed by teleneurology Continue IV Keppra 500 BID for now Seizure precautions CBC, CMP in AM (2) Hypomagnesemia: Assessment and Plan: ACUTE Recurrent, mild Mag level 1.7 today give additional Mag Sulfate 2gm IVPB now Continue mag oxide PO BID Mag in AM (3) Hypokalemia: Assessment and Plan: ACUTE Resolved K+ 3.9 today CMP in AM (4) Hypocalcemia: Assessment and Plan: ACUTE Ca 5.9 today, Corrected Calcium 7.0 Asymptomatic Continue Calcium carbonate scheduled TID Consider further calcium gluconate dosing pending clinical course CMP in AM (5) UTI (urinary tract infection): Assessment and Plan: ACUTE UA positive in ED E. Faecalis sensitive to cipro Continue IVPB Cipro - Day 07/05 (6) Acute kidney injury superimposed on CKD: Assessment and Plan: ACUTE Laboratory Tests 03/24/23 04:27 Creatinine 1.83 H Est GFR (Non-Af Amer) 27 L ELI on CKD 3b/4 at baseline Baseline: BUN 16-25, CR 1.6-1.85, GFR 26-33 Resolving D/C IVF today d/t concerns for fluid overload Treat UTI Continue to hold renal toxic meds including farxiga and lisinopril CMP in AM (7) 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 Improving - Only 1 episode of diarrhea noted by nursing overnight Continue PO vancomycin - Plan additional 7 days of PO vanco after cipro course is completed Monitor output (8) Atrial fibrillation: Assessment and Plan: CHRONIC Continue Lopressor for rate control Continue eliquis for CVA prevention cardiac monitoring (9) CHF (congestive heart failure): Assessment and Plan: CHRONIC Acute fluid overload today. Increased WOB but stable SPO2 on home 3L, faint rales on exam, CXR w/ mild changes suggestive of pulmonary edema DC IVF Lasix 40 mg IVP BID today Hold home bumex and metolazone for now - resume at discharge daily weights, I&O (10) Depression: Assessment and Plan: CHRONIC Continue home fluoxetine (11) Diabetes: Assessment and Plan: CHRONIC Hold home farxiga during acute hospitalization ACHS glucometer checks Med SS insulin for glucose correction Levemir 4 un BID Qualifiers: Chronic kidney disease stage: stage 3 (moderate) Chronic kidney disease stage 3 subtype: stage 3a (GFR 45-59) Diabetes mellitus complication detail: with chronic kidney disease Diabetes mellitus complication status: with kidney complications Diabetes mellitus predatory animal exterminator insulin use: with predatory animal exterminator use Diabetes mellitus type: type 2 Qualified Code(s): E11.22 - Type 2 diabetes mellitus with diabetic chronic kidney disease; N18.31 - Chronic kidney disease, stage 3a; Z79.4 - equipment operator intermodal yard (current) use of insulin (12) Hypertension: Assessment and Plan: CHRONIC Continue home BB Continue to hold LONI d/t renal toxicity Add PRN Hydralazine for uncontrolled HTN
--- NOTE | 2023-03-24 10:55 | PT.DAILY ---
Physical Therapy Daily Note PT Daily Note/Assess Start: 03/24/23 10:52 Freq: Status: Active Protocol: Document 03/24/23 10:52 STACY (Rec: 03/24/23 10:55 STACY [id number]) Physical Therapy Daily Note/Assessment Time In/Time Out Time In 09:25 Time Out 09:37 Pain In Pain N/A Pain Out Pain N/A Subjective Subjective Pt supine upon arrival. Initially refuses PT but does finally agree to get into BS chair with motivation. Therapeutic Exercise Time Therapeutic Exercise Minutes (minutes) 3 Therapeutic Exercise Units 0 Therapeutic Exercise Treatment Therapeutic Exercise Treatment Seated Bilat LE strengthening ex complete 10x ea in BS chair . Therapeutic Activity Time Therapeutic Activity Minutes (minutes) 7 Therapeutic Activity Units 1 Therapeutic Activity Treatment Bed Mobility Ability Minimum Assist Chair Transfer Ability Contact Guard Assist Therapeutic Activity Comments Pt performs supine>sit with Mirna to advance upper body to sit at EOB. Able to sit EOB unsupported without LOB. Pt stand pivots to BS chair with CGA and increased time to complete. Seated ex complete while sitting in BS chair. Pt declines wanting to amb or further activity at this time. Remains in BS chair with call light in reach and family present. Total Physical Therapy Time Total Therapy Minutes 10 Total Physical Therapy Units 1 Summary Daily Note Summary Limited session due to lack off motivation from pt. Steady with pivot transfer but does require increased time.
[2023-03-24 10:59] LABS: Glucometer 197 mg/dL (74-106)
--- NOTE | 2023-03-24 11:21 | PC.NURSE ---
[facility] from [facility] called to check on EEG results (not back yet) Recommends Keppra 500mg po bid upon discharge and follow up with local neurology.
[2023-03-24] MEDS: BUDESONIDE 0.5 MG/2 ML AMPULE NEB IH ×2 (12:01→21:33)
[2023-03-24] MEDS: INSULIN ASPART 300 UNIT/3 ML PEN SUBQ ×2 (12:07→21:41)
--- NOTE | 2023-03-24 12:20 | CM.NOTE ---
Faxed updated OT and PT note, progress note and CRF to [facility] .
[2023-03-24] MEDS: LEVETIRACETAM 500 MG in 0.9 % SODIUM CHLORIDE 100 ML 105 MG IV (16:01)
[2023-03-24 16:16] LABS: Glucometer 151 mg/dL (74-106)
--- NOTE | 2023-03-24 16:38 | NUTR.NU ---
Kate's Ca++ and Mg+ levels show improvement, but are still under normal limits; she receives supplemental Ca(CO3)2 and Mg+. PO intakes of 1800 kcal CCD diet have been generally good per Nursing; however, appetite is diminished today d/t not feeling well. Will continue to follow PRN.
[2023-03-24 19:54] LABS: Glucometer 148 mg/dL (74-106)
[2023-03-24] MEDS: ALPRAZOLAM 1 MG TABLET PO (21:40)
[2023-03-24] MEDS: INSULIN DETEMIR 300 UNIT/3 ML INSULN.PEN SUBQ (21:42)
[2023-03-25] VITALS (9 sets, daily range): BP systolic 125–143; BP diastolic 66–81; PULSE 68–85; RESP 18–20; TEMP 36.6–36.7; O2SAT 97–100
[2023-03-25] MEDS: NEOMYCIN/POLYMYXIN B/HYDROCORTISONE OTIC SUSP 200 DROP/10 ML BOTTLE OT ×3 (00:30→08:32)
[2023-03-25 05:11] LABS: Basophils Percent Auto 0.4 % (0.2-2.0); Eosinophils Absolute Auto 0.2 10^3/uL (0.0-0.7); Eosinophils Percent Auto 2.5 % (0.9-7.0); Hematocrit 29.6 % (36.0-48.0); Hemoglobin 9.2 g/dL (12.0-16.0); Immature Granulocytes Abs Auto 0.03 10^3/uL (0.00-0.03); Immature Granulocytes Pct Auto 0.3 % (0.0-0.5); Lymphocytes Absolute Auto 1.9 10^3/uL (1.2-3.8); Lymphocytes Percent Auto 20.7 % (20.5-60.0); Mean Corpuscular HGB Conc 31.1 g/dL (29.9-35.2); Mean Corpuscular Volume 99.7 fL (81.0-99.0); Mean Platelet Volume 9.8 fL (9.5-13.5); Monocytes Absolute Auto 0.8 10^3/uL (0.3-0.8); Monocytes Percent Auto 8.8 % (1.7-12.0); Neutrophils Absolute Auto 6.1 10^3/uL (1.4-6.5); Neutrophils Percent Auto 67.3 % (43.0-75.0); Platelet Count 175 10^3/uL (150-450); Red Blood Count 2.97 10^6/uL (4.20-5.40); Red Cell Distribution Width 15.1 % (11.0-15.0); White Blood Count 9.1 10^3/uL (4.0-11.0)
[2023-03-25] MEDS: ALBUTEROL SULFATE 2.5 MG/3 ML VIAL NEB IH ×2 (05:22→11:08)
[2023-03-25 05:45] LABS: Alanine Aminotransferase 22 U/L (14-59); Albumin Globulin Ratio 0.5; Albumin Level 2.4 g/dL (3.4-5.0); Alkaline Phosphatase 68 U/L (46-116); Anion Gap 9.1; Aspartate Amino Transferase 22 U/L (15-37); BUN Creatinine Ratio 15.5; Bilirubin Total 0.8 mg/dL (0.2-1.0); Carbon Dioxide 31.9 mmol/L (21.0-32.0); Chloride 102 mmol/L (98-107); Estimated GFR (African America 32 (>=60); Estimated GFR (Non-African Ame 26 (>=60); Globulin 4.6 g/dL; Glucose 112 mg/dL (74-106); Sodium 139 mmol/L (136-145)
[2023-03-25] MEDS: CALCIUM CARBONATE 500 MG (200MG ELEMENTAL) TAB CHEW PO (05:46)
[2023-03-25] MEDS: CIPROFLOXACIN IN 5 % DEXTROSE 400 MG/200 ML PIGGYBACK 200 MG IV (05:46)
[2023-03-25] MEDS: NYSTATIN 15 GM POWDER 1 APPLIC TOPICAL (05:47)
[2023-03-25] MEDS: VANCOMYCIN HCL 7,500 MG/150 ML BOTTLE 125 MG PO (05:48)
[2023-03-25 06:34] LABS: Calcium 5.9 mg/dL (8.5-10.1)
[2023-03-25 06:35] LABS: NT Pro B Type Natriuretic Pept >35000.0 pg/mL (<=900.0)
[2023-03-25] MEDS: LEVETIRACETAM 500 MG in 0.9 % SODIUM CHLORIDE 100 ML 420 MG IV (06:45)
[2023-03-25] MEDS: INSULIN DETEMIR 300 UNIT/3 ML INSULN.PEN SUBQ (08:32)
[2023-03-25] MEDS: APIXABAN 5 MG TABLET PO (08:33)
[2023-03-25] MEDS: FUROSEMIDE 40 MG/4 ML VIAL IVP (08:33)
[2023-03-25] MEDS: FLUOXETINE HCL 20 MG CAPSULE 40 MG PO (08:33)
[2023-03-25] MEDS: OMEPRAZOLE 40 MG CAPSULE.DR PO (08:33)
[2023-03-25] MEDS: MAGNESIUM OXIDE 400 MG TABLET PO (08:33)
[2023-03-25] MEDS: ATORVASTATIN CALCIUM 20 MG TABLET PO (08:33)
[2023-03-25] MEDS: METOPROLOL TARTRATE 50 MG TABLET PO (08:33)
[2023-03-25] MEDS: CALCIUM CARBONATE 500 MG (200MG ELEMENTAL) TAB CHEW 1000 MG PO (08:33)
[2023-03-25] MEDS: BREXPIPRAZOLE 1 MG PO (08:34)
--- NOTE | 2023-03-25 10:49 | PM.DS1 ---
DS: Providers Provider Date of admission: 03/21/23 23:02 Primary care physician: BARRY RENDON Consults: 03/22/23 08:00 Consult to TeleNeurology Routine Reason for consultation: recurrent seizure activity 03/22/23 09:35 Speech Therapy Eval and Treat Routine Reason for consultation: Aspiration event/r/o dysphagia Has provider been notified: No 03/23/23 Occupational Therapy Eval and Treat Routine Reason for consultation: weakness Has provider been notified: Yes Physical Therapy Eval and Treat Routine Reason for consultation: weakness Has provider been notified: Yes DS: Diagnosis Discharge Diagnosis (1) Generalized seizure: (2) Hypomagnesemia: (3) Hypokalemia: (4) Hypocalcemia: (5) UTI (urinary tract infection): (6) Acute kidney injury superimposed on CKD: (7) C. difficile diarrhea: (8) Atrial fibrillation: (9) CHF (congestive heart failure): (10) Depression: (11) Diabetes: Qualifiers: Chronic kidney disease stage: stage 3 (moderate) Chronic kidney disease stage 3 subtype: stage 3a (GFR 45-59) Diabetes mellitus complication detail: with chronic kidney disease Diabetes mellitus complication status: with kidney complications Diabetes mellitus buttermaker continuous churn insulin use: with buttermaker continuous churn use Diabetes mellitus type: type 2 Qualified Code(s): E11.22 - Type 2 diabetes mellitus with diabetic chronic kidney disease; N18.31 - Chronic kidney disease, stage 3a; 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 At that time was felt to be metabolic in nature and so was not treated. Being a one-time seizure. EEG was obtained at that time but none available at the time of discharge. Patient had a recurrence of her seizure. Presented to emergency room with multiple electrolyte abnormalities. Patient was admitted for workup and treatment of same. She did have 2 other seizures while here in the first 24 hours but has not had a seizure since she was started on Keppra. Her potassium calcium and magnesium are all low. This been corrected except the calcium is still relatively low. She did also have acute UTI. She is recovering from C. difficile colitis. The plan for today is if she can ambulate without significant hypoxia on her baseline home O2 of 3 L she can be discharged home in improving condition. Medications see list. Follow-up with her PCP within the next week. Only other complicating factor was she had some mild acute combined congestive heart failure. Her BNP is significantly elevated but it has been significantly elevated in the past as her baseline. Time Spent with Patient Time attestation: Total time spent providing and/or coordinating discharge services: Exam Constitutional Vital Signs, click to edit/add: Last Vital Signs Temp 97.9 F 03/25/23 04:41 Pulse 76 03/25/23 09:59 Resp 20 03/25/23 05:22 BP 125/66 03/25/23 04:41 Pulse Ox 100 03/25/23 05:22 O2 Del Method Nasal Cannula 03/25/23 05:22 O2 Flow Rate 3 03/25/23 05:22 Common normals: no apparent distress, oriented x3 and alert General appearance: cooperative Orientation/consciousness: Yes awake HENMT Common normals: normocephalic, head/scalp atraumatic and hearing grossly normal bilaterally Eye Common normals: PERRL, EOMs intact bilaterally, conjunctivae normal and no scleral icterus General eye: normal appearance of both eyes Chest Common normals: inspection of chest normal Chest: symmetrical chest wall rise Respiratory Common normals: normal respiratory effort Effort & inspection: able to speak in complete sentences and uses accessory muscles (Mild ) Auscultation: crackles (Fine scattered rales BLL) Cardio Common normals: regular rate, regular rhythm, S1 normal heart sound, S2 normal heart sound, no murmurs and peripheral pulses 2+ throughout Heart sounds: murmur (HSM 2/6) GI Common normals: Normal to inspection, nondistended, normoactive bowel sounds present, soft to palpation, non-tender and no hepatosplenomegaly Palpation: soft and no hepatosplenomegaly Bladder/kidney exam: bladder normal to palpation Extremity Common normals: normal to inspection and no calf tenderness General: edema (Trace bilat ankles); no clubbing and no cyanosis Neuro Common normals: CN's II-XII intact bilaterally, moves all extremities, no focal motor deficits and no sensory deficits noted Psych Common normals: mental status grossly normal DS: Data Data Completed and Pending Labs on day of discharge: Labs from last 24 hours 03/25/23 03/24/23 03/24/23 04:10 19:53 16:15 WBC 9.1 RBC 2.97 L Hgb 9.2 L Hct 29.6 L MCV 99.7 H MCH 31.0 MCHC 31.1 RDW 15.1 H Plt Count 175 MPV 9.8 Neut % (Auto) 67.3 Lymph % (Auto) 20.7 [place] % (Auto) 8.8 Eos % (Auto) 2.5 Baso % (Auto) 0.4 Neut # (Auto) 6.1 Lymph # (Auto) 1.9 [place] # (Auto) 0.8 Eos # (Auto) 0.2 Baso # (Auto) 0.0 Abs Immat Gran (auto) 0.03 Imm/Tot Granulo (auto) 0.3 Sodium 139 Potassium 4.0 Chloride 102 Carbon Dioxide 31.9 Anion Gap 9.1 BUN 29.0 H Creatinine 1.87 H Est GFR ( Amer) 32 L Est GFR (Non-Af Amer) 26 L BUN/Creatinine Ratio 15.5 Glucose 112 H Calcium 5.9 L* Magnesium 2.0 Total Bilirubin 0.8 AST 22 ALT 22 Alkaline Phosphatase 68 NT-Pro-B Natriuret Pep >97263.0 H* Total Protein 7.0 Albumin 2.4 L Globulin 4.6 Albumin/Globulin Ratio 0.5 POC Glucose 148 H 151 H 03/24/23 10:58 WBC RBC Hgb Hct MCV MCH MCHC RDW Plt Count MPV Neut % (Auto) Lymph % (Auto) [place] % (Auto) Eos % (Auto) Baso % (Auto) Neut # (Auto) Lymph # (Auto) [place] # (Auto) Eos # (Auto) Baso # (Auto) Abs Immat Gran (auto) Imm/Tot Granulo (auto) Sodium Potassium Chloride Carbon Dioxide Anion Gap BUN Creatinine Est GFR ( Amer) Est GFR (Non-Af Amer) BUN/Creatinine Ratio Glucose Calcium Magnesium Total Bilirubin AST ALT Alkaline Phosphatase NT-Pro-B Natriuret Pep Total Protein Albumin Globulin Albumin/Globulin Ratio POC Glucose 197 H Discharge Plan Discharge Disposition: Home, Self-Care Discharge Medications: New levetiracetam [Keppra] 500 mg tablet 500 mg PO BID 14 Days Qty: 60 0RF calcium carbonate 200 mg calcium (500 mg) Tablet,Chewable 500 mg PO TID Qty: 90 0RF vancomycin [Firvanq] 50 mg/mL recon soln 125 mg PO QID 10 Days Qty: 100 0RF Rx Instructions: Take for 10 more days, last dose on 04/03/23 ciprofloxacin HCl [Cipro] 500 mg tablet 500 mg PO Q12H Qty: 10 0RF levetiracetam [Keppra] 500 mg tablet 500 mg PO BID Qty: 60 11RF Continued albuterol sulfate [Ventolin HFA] 90 mcg/actuation HFA aerosol inhaler 2 puff INHALATION Q4H PRN (Reason: shortness of breath or wheezing) Eliquis 5 mg tablet 5 mg PO BID alprazolam 1 mg tablet 1 mg PO TID PRN (Reason: anxiety) Rexulti 1 mg tablet 1 mg PO QDAY cyclobenzaprine 10 mg tablet 10 mg PO .qhs PRN (Reason: muscle spasm) Trulicity 0.75 mg/0.5 mL pen injector 0.75 mg SUBCUT QWEEK Patient Comments: Wednesday fluoxetine 40 mg capsule 40 mg PO DAILY magnesium oxide 400 mg (241.3 mg magnesium) tablet 400 mg PO BID metoprolol tartrate 50 mg tablet 50 mg PO BID omeprazole 40 mg capsule,delayed release(DR/EC) 40 mg PO BID tizanidine 4 mg tablet 4 mg PO TID PRN (Reason: muscle spasticity) bumetanide 2 mg tablet 2 mg PO DAILY Rx Instructions: Takes 2 mg in AM and 1 mg at bedtime atorvastatin [Lipitor] 20 mg tablet 20 mg PO DAILY metolazone 2.5 mg tablet 2.5 mg PO DAILY Farxiga 10 mg tablet 10 mg PO DAILY estradiol [Estrace] 0.01 % (0.1 mg/gram) cream 0.25 appful vaginal .2x a week fluticasone propion-salmeterol [Advair Diskus] 250-50 mcg/dose blister with device 1 inh inhalation BID lisinopril 20 mg tablet 20 mg PO DAILY promethazine 25 mg tablet 25 mg PO Q6H PRN (Reason: nausea and vomiting) rlekojnh-pyktjdcus-QM 3.5-10,000-1 mg/mL-unit/mL-% drops,suspension 3 drp OTIC (EAR) Q4H Discontinued vancomycin [Firvanq] 50 mg/mL Recon Soln 125 mg PO QID 10 Days Qty: 100 0RF ciprofloxacin HCl 500 mg tablet 500 mg PO DAILY Activity: as per physical therapy Diet: diabetic diet Patient Instructions: Urinary Tract Infection in Women (DC), Epilepsy (DC), Hypocalcemia (DC), Urinary Tract Infection in Older Adults (DC) Activity Restrictions/Additional Instructions: - Recommend repeat CMP, Mag level in 1 week - electrolyte disturbances Forms: Portal Instructions Follow Up Appointments: Patient is to call and make the following hospital stay follow up appts: - Follow up with Dr. Rendon in 3-5 days office #: [phone] - Follow up with [facility] in 1-2 weeks office #:
[2023-03-25] MEDS: BUDESONIDE 0.5 MG/2 ML AMPULE NEB IH (11:08)
--- NOTE | 2023-03-25 11:26 | RESP.RT ---
HR=68/70 SPO2=98 on 3L
--- NOTE | 2023-03-29 11:18 | CM.DCFOLLOWU ---
Person spoke with: Paul (patient) How are you feeling? feeling ok How is your pain? none Did you understand your discharge instructions? yes. Re-reviewed medications prescribed at discharge and how to take those medications. Also re-reviewed all follow up appointments and phone numbers for them to get the appointments scheduled. Do you have any questions about your discharge instructions? no Were you given any prescriptions at discharge? yes Were you able to get your prescriptions filled? yes Do you understand how to take your medications as ordered? yes Do you have any questions about your follow up appointment and do you plan to keep your follow up appointment? Encouraged to make follow up appointment with Dr. Barber and [facility] TAWNYA, patient and Lavonne both voiced understanding and were given the phone numbers listed on the discharge instructions. Is there anything else that you would like to discuss? no Questions/Comments/Concerns/Other: n/a
--- NOTE | 2023-03-29 11:20 | CM.DCFOLLOWU ---
Patient also voiced during call back that home health would be coming out today.
--- NOTE | 2023-03-29 12:32 | CM.NOTE ---
Sent notes and referral to [facility] for pt to schedule f/u appt. [facility] requesting documentation for patient to be able to schedule f/u. Discharge summary and ER notes sent per request of pt and [facility].
== END 2023-03-25 12:19 | disposition home health service (06) | DRG 100 ==
LOC: ER 22:50 → MS 23:04 → ICU 03-22 00:59 → MS 03-23 10:39
PROVIDERS: Internal Medicine; Nurse Practitioner; Admitting Provider Family Medicine; Emergency Provider Internal Medicine; PCP Internal Medicine; Visit Provider Family Medicine
DX: G40.409 Other generalized epilepsy and epileptic syndromes, not intractable, without status epilepticus (principal); I50.43 Acute on chronic combined systolic (congestive) and diastolic (congestive) heart failure; A04.72 Enterocolitis due to Clostridium difficile, not specified as recurrent; N39.0 Urinary tract infection, site not specified; I13.0 Hypertensive heart and chronic kidney disease with heart failure and stage 1 through stage 4 chronic kidney disease, or unspecified chronic kidney disease; I48.20 Chronic atrial fibrillation, unspecified; E83.42 Hypomagnesemia; E83.51 Hypocalcemia; N18.31 Chronic kidney disease, stage 3a; H60.502 Unspecified acute noninfective otitis externa, left ear; E11.22 Type 2 diabetes mellitus with diabetic chronic kidney disease; J44.9 Chronic obstructive pulmonary disease, unspecified; B95.2 Enterococcus as the cause of diseases classified elsewhere; F32.A Depression, unspecified; D50.9 Iron deficiency anemia, unspecified; E78.5 Hyperlipidemia, unspecified; E87.6 Hypokalemia; E66.9 Obesity, unspecified; F17.210 Nicotine dependence, cigarettes, uncomplicated; D63.1 Anemia in chronic kidney disease; Z79.899 Other long term (current) drug therapy; Z99.81 Dependence on supplemental oxygen; Z79.51 Long term (current) use of inhaled steroids; Z79.4 Long term (current) use of insulin; Z79.01 Long term (current) use of anticoagulants; Z83.6 Family history of other diseases of the respiratory system; Z82.49 Family history of ischemic heart disease and other diseases of the circulatory system; Z87.440 Personal history of urinary (tract) infections; Z68.31 Body mass index [BMI] 31.0-31.9, adult; Z79.84 Long term (current) use of oral hypoglycemic drugs; Z79.85 Long-term (current) use of injectable non-insulin antidiabetic drugs
CPT/HCPCS: 36415; 70450; 70551; 71045; 80048; 80053; 81001; 82306; 82310; 82330; 82948; 83735; 83880; 84100; 84132; 84484; 85025; 85027; 87086; 87150; 87186; 87493; 92610; 93005; 94640; 94761; 95819; 96365; 96366; 96367; 96368; 96375; 96376; 97161; 97165; 97530; 97535; 99285; G0328; J3480; Q3014

== ENCOUNTER 2023-04-09 14:45 | Outpatient (REF) | payer MEDICARE, OTHER, MEDICAID, SELFPAY ==
[2023-04-09 15:48] LABS: Basophils Absolute Auto 0.1 10^3/uL (0.0-0.1); Basophils Percent Auto 0.7 % (0.2-2.0); Eosinophils Absolute Auto 0.3 10^3/uL (0.0-0.7); Eosinophils Percent Auto 2.4 % (0.9-7.0); Hematocrit 30.4 % (36.0-48.0); Hemoglobin 9.9 g/dL (12.0-16.0); Immature Granulocytes Abs Auto 0.05 10^3/uL (0.00-0.03); Immature Granulocytes Pct Auto 0.5 % (0.0-0.5); Lymphocytes Absolute Auto 2.6 10^3/uL (1.2-3.8); Lymphocytes Percent Auto 24.1 % (20.5-60.0); Mean Corpuscular HGB Conc 32.6 g/dL (29.9-35.2); Mean Corpuscular Hemoglobin 30.7 pg (26.7-34.0); Mean Corpuscular Volume 94.1 fL (81.0-99.0); Mean Platelet Volume 9.8 fL (9.5-13.5); Monocytes Absolute Auto 0.6 10^3/uL (0.3-0.8); Neutrophils Absolute Auto 7.1 10^3/uL (1.4-6.5); Neutrophils Percent Auto 66.3 % (43.0-75.0); Platelet Count 254 10^3/uL (150-450); Red Blood Count 3.23 10^6/uL (4.20-5.40); Red Cell Distribution Width 14.1 % (11.0-15.0); White Blood Count 10.7 10^3/uL (4.0-11.0)
[2023-04-09 15:49] LABS: Anion Gap 14.4; BUN Creatinine Ratio 16.8; Calcium 7.5 mg/dL (8.5-10.1); Chloride 89 mmol/L (98-107); Estimated GFR (African America 18 (>=60); Estimated GFR (Non-African Ame 15 (>=60); Glucose 147 mg/dL (74-106); Potassium 3.4 mmol/L (3.5-5.1); Sodium 135 mmol/L (136-145)
== END 2023-04-09 14:46 | disposition home or self-care (01) ==
LOC: LAB 14:45
PROVIDERS: PCP Internal Medicine; Visit Provider Internal Medicine
DX: N39.0 Urinary tract infection, site not specified (principal); N19 Unspecified kidney failure; I48.91 Unspecified atrial fibrillation
CPT/HCPCS: 36415; 80048; 85025

== ENCOUNTER 2023-04-12 14:27 | Outpatient (OUT) | payer MEDICARE, OTHER, MEDICAID, SELFPAY ==
--- NOTE | 2023-04-12 14:29 | MM_ITS ---
Patient Name: MARTIN HAGEN MR#: [id number] : 1950 Exam Date: 04/12/2023 Ordering Doctor: DR BARRY RENDON M.D. RADIOLOGY REPORT PROCEDURE: MM SCREENING MAMMO BI COMPARISON: MG MAMM SCREEN PAUL W CAD, 05/30/2020. MG MAMM SCREEN PAUL W CAD, 03/31/2019. INDICATIONS: Screening Calculator Name NCI Breast Cancer Risk Assessment Tool 5 Year Breast Cancer Risk 1.90% Lifetime Breast Cancer Risk 4.30% Personal Breast Cancer No Personal Ovarian Cancer No Treatments None Family Cancers None LOCATION: [facility] BREAST COMPOSITION: Almost entirely fatty. FINDINGS: DIAGNOSTIC CATEGORY 1--NEGATIVE. NO CHANGE FROM COMPARISON ASSESSMENT. Scattered benign-appearing calcifications are present. Scattered benign-appearing lymph nodes are present. RIGHT BREAST: No significant suspicious finding. LEFT BREAST: No significant suspicious finding. RECOMMENDATIONS: ROUTINE MAMMOGRAM AND CLINICAL EVALUATION IN 12 MONTHS. PLEASE NOTE: A NORMAL MAMMOGRAM DOES NOT EXCLUDE THE POSSIBILITY OF BREAST CANCER. A CLINICALLY SUSPICIOUS PALPABLE LUMP SHOULD BE BIOPSIED. Dictated by: Eitan Blackwell MD on 04/13/2023 at 07:32 Approved by: Eitan Blackwell MD on 04/13/2023 at 07:33
== END 2023-04-12 14:28 | disposition home or self-care (01) ==
LOC: MAMMO 14:27
PROVIDERS: PCP Internal Medicine; Visit Provider Internal Medicine
DX: Z12.31 Encounter for screening mammogram for malignant neoplasm of breast (principal)
CPT/HCPCS: 77067

== ENCOUNTER 2023-04-30 09:48 | Outpatient (OUT) | payer MEDICARE, OTHER, MEDICAID, SELFPAY ==
--- NOTE | 2023-04-30 09:54 | CT_ITS ---
[address] [address] Patient Name: MARTIN HAGEN MRN: [id number] date: 1950 Sex: F Assigned Patient Location: CT Current Patient Location: Accession/Order Number: [id number] Exam Date: 04/30/2023 10:00 Report Date: 05/03/2023 20:54 At the request of: BARRY RENDON Procedure: CT lung screening low-dose EXAMINATION: CT lung screening low-dose HISTORY: Nicotine Dependence F17.210 COMPARISON: CT chest 04/19/2021, CT abdomen pelvis 03/11/2023 TECHNIQUE: Axial, Coronal, and Sagittal images were created without the administration of IV contrast material. Dose reduction techniques were achieved by using automated exposure control and/or adjustment of mA and/or kV according to patient size and/or use of iterative reconstruction technique. FINDINGS: LUNGS: 3 adjacent nodules within right lower lobe superior segment adjacent posterior wall, largest is 7 mm. Mild bronchiectasis within lung bases bilaterally. PLEURA: No mass, effusion, or pneumothorax. VASCULATURE: No abnormality. SE: No mass or pathologic adenopathy. MEDIASTINUM: No mass or pathologic adenopathy. CARDIAC: Atherosclerotic coronary artery disease and valve calcifications. No significant enlargement or pericardial effusion. AORTA: No aneurysm or dissection. CHEST WALL: No mass or axillary adenopathy BONES: No bone lesion or fracture. LIMITED ABDOMEN: Bilateral adrenal masses, 4.7 cm on right, 3.4 cm on left with scattered areas of fat density favoring benign etiology. Limited images of the upper abdomen. OTHER: Negative. CT/CT lung screening low-dose IMPRESSION: 1. Lung-RADS Category 4A- Suspicious. Findings for which additional diagnostic testing and/ or tissue sampling is recommended. 3 month LDCT; PET/CT may be used when there is a >= 8 mm solid component. 2. Nodules within posterior lateral right lower lobe superior segment which had not been seen on prior studies, but there has always been pleural fluid, and atelectasis/infiltrates within this region. While these lesions are not overtly suspicious, follow-up CT chest in 3 months is recommended to document stability. Electronically authenticated by: ANITA KEYS Date: 05/03/2023 20:54
--- NOTE | 2023-04-30 09:54 | XR_ITS ---
[address] [address] Patient Name: MARTIN HAGEN MRN: [id number] date: 1950 Sex: F Assigned Patient Location: CT Current Patient Location: CT Accession/Order Number: [id number] Exam Date: 04/30/2023 10:10 Report Date: 04/30/2023 11:25 At the request of: BARRY RENDON Procedure: XR DEXA axial skeleton EXAMINATION: XR DEXA axial skeleton HISTORY: Age Related Osteoporosis Without Current Fracture COMPARISON: Bone densitometry 10/16/2019 TECHNIQUE: Dual-energy X-ray absorptiometry (DXA) was performed. FINDINGS: SPINE ANALYSIS: Average bone mineral density is 1.352 g/cm2. T-score (standard deviation relative to young adult mean): 1.3 . +13.8% change since prior study. HIP ANALYSIS: Lowest bone mineral density is within the left femoral neck, 0.495 g/cm2. T-score (standard deviation relative to young adult mean): -3.1 (-2.5 within femoral neck) . -11.9% change since prior study. XR/XR DEXA axial skeleton IMPRESSION: [employer] Classification: Osteoporosis - High Fracture Risk Electronically authenticated by: ANITA KEYS Date: 04/30/2023 11:25
--- OUTSIDE RECORDS SUMMARY | 2023-04-30 09:56 | XMS_ITS | CCD ---
Author Name Unknown Address [address] [place] [address] Organization [facility] Care Team Providers Care Guest House Manager Name Role Phone BROWN KASANDRA Unavailable Unavailable KASANDRA BROWN Unavailable Unavailable SELF, REFERRED Unavailable Unavailable SHAWN BARBER Unavailable Unavailable Smiley Davila Unavailable SHAWN BARBER Primary Care Physician Dianne, Ziggy Unavailable JAG, DR MAHAMED Perez Admitting Unavailable JAG, DR MAHAMED Perez Attending Unavailable DR SHAWN BARBER Primary Care Unavailable DR SHAWN BARBER Primary Care Unavailable DR LALI MEHTA Admitting Unavailable HONadir ., DR ESCALERA Attending Unavailable MIGUEL ., DR ESCALERA Consulting Unavailable LYN PIPER Consulting Unavailable ADILENE ., FLAKITA Consulting Unavailable SIMON NORIEGA Consulting Unavailable NALLELY RANGEL Consulting Unavailable DR SHAWN BARBER Primary Care Unavailable DIANNE, ZIGGY Attending Unavailable DIANNE, ZIGGY Admitting Unavailable DR LALI MEHTA Procedure Practitioner Unavail able DR LALI MEHTA Consulting Unavailable MIGUEL ., DR ESCALERA Attending Unavailable DR LALI MEHTA Admitting Unavailable DR SHAWN BARBER Primary Care Unavailable LYN THOMASON Consulting Unavailable RON TADEO Consulting Unavailable DR SHAWN BARBER Primary Care Unavailable ADELAIDA .DR JOSE Admitting Unavailable ADELAIDA ., DR JOSE Berumen Attending Unavailable TAHMINA, DR CANDACE Ambrose Consulting Unavailable ADELAIDA ., DR JOSE Berumen Consulting Unavailable DR ANITA KEYS Consulting Unavailable JOSE ALBERTO CABA Consulting Unavailable INGRID LOJA Consulting Unavailable DR SHAWN BARBER Primary Care Unavailable SALOMÓN, DR ASCENCIO Attending Unavailable SALOMÓN, DR ASCENCIO Admitting Unavailable JOHN RENEE Admitting Unavailable JOHN RENEE Attending Unavailable DR SHAWN BARBER Primary Care Unavailable JOHN RENEE Consulting Unavailable DANN, INES Consulting Unavailable BARBER, DR REDDY Primary Care Unavailable DANN, INES Attending Unavailable DANN, INES Admitting Unavailable ZIEBER, DR ANITA Ambrose Consulting Unavailable KABA JR ., DR PAULINO Faustin Attending Unavaila ble KABA JR ., DR PAULINO Faustin Admitting Unavaila ble BARBER, DR REDDY Primary Care Unavailable KABA JR ., DR PAULINO Faustin Consulting Unavaila ble DANN, INES Consulting Unavailable HENRY, MADI Consulting Unavailable BARBER, DR REDDY Primary Care Unavailable HENRY, MADI Attending Unavailable HENRY, MADI Admitting Unavailable DANN, INES Consulting Unavailable BARBER, DR REDDY Primary Care Unavailable DANN, INES Attending Unavailable DANN, INES Admitting Unavailable SON ., DR JOSE Berumen Consulting Unavailable BARBER, DR REDDY Primary Care Unavailable SON ., DR JOSE Berumen Attending Unavailable SON ., DR JOSE Berumen Admitting Unavailable SON ., DR JOSE Berumen Attending Unavailable SON ., DR JOSE Berumen Admitting Unavailable HOY ., DR ESCALERA Consulting Unavailable BARBER, DR REDDY Primary Care Unavailable SON ., DR JOSE Berumen Consulting Unavailable NOHEMY, MARYLOU Consulting Unavailable Briggs, Gin Consulting Unavailable LOJA, AFTAB Consulting Unavailable SUNIL, DR REDDY Primary Care Unavailable HOY ., DR ESCALERA Admitting Unavailable HOY ., DR ESCALERA Attending Unavailable HOY ., DR ESCALERA Consulting Unavailable NADERER, DR ROXANA Mata Consulting Unavailable MARKER ., DR POLLOCK Consulting Unavailable ADILENE ., FLAKITA Consulting Unavailable MADI SANCHEZ Consulting Unavailable GINA BRITT Consulting Unavailable HEMMER, DR MAHAMED Perez Admitting Unavailable HEMMER, DR MAHAMED Perez Attending Unavailable SUNIL, DR REDDY Primary Care Unavailable HEMMER, DR MAHAMED Perez Consulting Unavailable SON ., DR JOSE Berumen Admitting Unavailable SON ., DR JOSE Berumen Attending Unavailable SUNIL, DR REDDY Primary Care Unavailable SON ., DR JOSE Berumen Consulting Unavailable ELTAHAWY, DR ASCENCIO Consulting Unavailable SUNIL, DR REDDY Primary Care Unavailable ELTAHAWNadir, DR ASCENCIO Attending Unavailable ELTAHAWNadir, DR ASCENCIO Admitting Unavailable SON ., DR JOSE Berumen Admitting Unavailable SON ., DR JOSE Berumen Attending Unavailable BARBER, DR REDDY Primary Care Unavailable SON ., DR JOSE Berumen Consulting Unavailable ELTAHAWNadir, EHAB Attending Unavailable DARLENE MAXWELLAB Attending Unavailable MADI SANCHEZ Attending Unavailable PHILL SIMPSON Attending Unavailable MARTHA Barber Primary Care Provider DO Venkatesh Trammell Emergency Provider DO Gina Poole Admit Provider DO Gina Poole Attending Provider [phone] BENITO Antunez Other Provider Unavailable DO Melody Canela Other Provider MD Colin Carrillo Other Provider MD Rey Arriaga Other Provider MD Jeffry Hardy Other Provider MD Farhat Saleem Other Provider JERMAINE Montanez Other Provider MD Kellie Okeefe Other Provider MD Jack Cooley Other Provider MD Daniella Estrada Other Provider Ayanna [facility] Sonia Faustin Other Provider MD Tatiana Shafer Other Provider Hilary Antunez Consulting Unavailable Gina Poole Admitting Unavailable Gina Poole Attending Unavailable Shawn Barber Primary Care Unavailable Melody Canela Consulting Unavailable Colin Carrillo Consulting Unavailable Rey Arriaga Consulting Unavail able Jeffry Hardy Consulting Unavailable Farhat Saleem Consulting Unavailab Rama Mckeon Consulting Unavailable Kellie Okeefe Consulting Unavailable Jack Cooley Consulting Unavailab Daniella French Consulting Unavailable Sonia Urena Consulting Unavailable Tatiana Shafer Consulting Unavailable Shawn Barber Unavailable Unavailable Unavailable Rama Kaba Referring Unavailable Rama Kaba Attending Unavailable Sunil THOMAS, Dr. Shawn Cage Primary Care Raina Shawn Mathias MD Primary Care Provider Shawn Barber MD Unavailable [phone] SHAWN BARBER Attending Unavailable Shawn Barber MD Primary Care Provider Shawn Barber MD Unavailable Lue, Jacqui M. Attending Unavailable INES WELCH Attending Unavailable Lue, Jacqui M. Referring Unavailable Lue, Jacqui M. Attending Unavailable Lue, Jacqui M. Attending Unavailable INES WELCH Attending Unavailable Lue, Jacqui M. Referring Unavailable Lue, Jacqui M. Admitting Unavailable Lue, Jacqui M. Attending Unavailable Lue, Jacqui M. Admitting Unavailable Lue, Jacqui M. Attending Unavailable Lue, Jacqui M. Admitting Unavailable Lue, Jacqui M. Attending Unavailable Lani Wasserman Attending Unavailable Lue, Jacqui M. Attending Unavailable Allergies Allergy Classification Reported Allergen(s) Allergy Type Date of Onset Reaction(s) Facility (16 sources) GRAPEFRUIT EXTRACT; Translations: [GRAPEFRUIT] Drug Allergy 3 rash, Unknown (qualifier value) [facility] (2 sources) virgin wool Propensity to adverse reactions Unknown [employer] Other (2 sources) pinneapple Propensity to adverse reactions rash [employer] Other (13 sources) Bee/Wasp/Ant venom; Translations: [Bee Stings] Drug allergy Swelling of body region (finding) [facility] (15 sources) Naproxen; Translations: [naproxen] Drug Allergy 5 AOF, Unknown [facility] (14 sources) Pineapple; Translations: [PINEAPPLE] Drug allergy 3 Unknown (qualifier value) [facility] (1 source) Bee Sting Drug allergy Unknown [employer] Other (2 sources) Naproxen Drug Allergy 5 [facility] (1 source) Naproxen; Translations: [NAPROXEN SODIUM] Drug Allergy 5 [facility] (1 source) BEE VENOM PROTEIN (HONEY BEE); Translations: [BEE VENOM PROTEIN (HONEY BEE)] Propensity to adverse reactions to drug (disorder) 3 [facility] (1 source) WOOL; Translations: [WOOL] Propensity to adverse reactions to drug (disorder) 3 [facility] (1 source) No Known Medication Allergies; Translations: [No Known Medication Allergies] Propensity to adverse reactions (disorder) [facility] Repository Medications Current Medications Medication Drug Class(es) Dates Sig (Normalized) Sig (Original) acetaminophen 325 mg / HYDROcodone bitartrate 5 mg oral tablet (10 sources) Opioid Agonist Start: 12-29-2022 acetaminophen-hydr ocodone 325 mg-5 mg oral tablet Refill(s) 0 Start Date: 12/29/22 Status: Ordered Start: 11-18-2022 take 1 tablet by marshal [facility] twice daily Hydrocodone-Acetaminophen Active 1 TAB P O 2 times daily November 18, 2022 12:00am take 1 tablet by marshal th every four to six hours as needed for pain HYDROcodone-Acetaminophen 5-325 MG Oral Tablet TAKE 1 TABLET EVERY 4 TO 6 HOURS NEEDED FOR PAIN. Quantity: 0 Refills: 0 Ordered: 28-Dec-2022 DO Active take 1 tablet by marshal th every six hours HYDROcodone-Acetaminophen 5-325 MG 1 tab let as needed Orally every 6 hrs Active albuterol 0.83 mg/ml inhalation solution (12 sources) beta2-Adrenergic Agonist Start: 11-19-2022 take 2.5 mg by inhalation every six hours Albuterol Sulfate Active 2.5 MG INHALATION Q6H November 19, 2022 12:00am Start: 11-18-2022 Albuterol Sulf ate (Ventolin Hfa) 90 mcg/actuation HFA aerosol inhaler Active INHALATION November 18, 2022 12:00am Start: 05-11-2017 take 1 puff(s) by in halation every four hours ProAir HFA 90 mcg/inh inhalation aerosol 1 puff(s), Inhalation, q4hr Shortness of breath or wheezing, Refill(s) 0 Start Date: 05/11/17 Status: Ordered albuterol 2.5 mg /3 mL (0.083 %) nebulizer solution Take 3 mL (2.5 mg) by nebulization. 0 Active take 1-2 puff(s) by mouth every four to six hours as needed Ventolin HFA 108 (90 Base) MCG/ACT Inhalation Aerosol Solution INHALE 1 TO 2 PUFFS BY MOUTH EVERY 4 TO 6 HOURS NEEDED Quantity: 0 Refills: 0 Ordered: 28-Dec-2022 DO Active Albuterol Sulfat e (2.5 MG/3ML) 0.083% 3 mL as needed Inhalation every 6 hrs Active take 2 puff(s) by in halation every four hours as needed Albuterol Sulfate HFA 108 (90 Base) MCG/ACT 2 puff as needed Inhalation every 4 hrs Active take 1 puff(s) by in halation every four hours as needed Albuterol Sulfate HFA 108 (90 Base) MCG/ACT 1 puff as needed Inhalation every 4 hrs Active ALPRAZolam 1 mg oral tablet (18 sources) Benzodiazepine Start: 02-03-2023 alprazolam 1 m g Tab Refills(s) 0 Start Date: 02/03/23 Status: Ordered Start: 11-18-2022 take 1 mg by mouth twice daily Alprazolam Active 1 MG PO Twice daily November 18, 2022 12:00am Start: 08-16-2014 take 1 tablet by marshal th three times daily as needed for anxiety alprazolam 1 mg Tab 1 mg = 1 tab(s), Oral, TID, PRN for anxiety, Refills(s) 0, Anxiety Start Date: 08/16/14 Status: Ordered take 1 tablet by marshal th once daily in the morning ALPRAZolam XR (Xanax XR) 1 mg 24 hr tablet Take 1 tablet (1 mg) by mouth once daily in the morning. Do not crush, chew, or split. 0 Active take 1 tablet by marshal th every twelve hours ALPRAZolam 1 MG 1 tablet Orally Twice a day Active apixaban 5 mg oral tablet (10 sources) Factor Xa Inhibitor Start: 12-29-2022 Eliquis 5 mg oral tablet Refills(s) 0 Start Date: 12/29/22 Status: Ordered Start: 11-18-2022 take 1 tablet by marshal th once daily Apixaban (Eliquis) 5 mg tablet Active 5 MG PO Daily November 18, 2022 12:00am take 1 tablet by marshal th twice daily apixaban (Eliquis) 5 mg tablet Take 1 tablet (5 mg) by mouth 2 times a day. 0 Active atorvastatin 20 mg oral tablet (15 sources) HMG-CoA Reductase Inhibitor Start: 08-16-2014 take 1 tablet by mouth once daily at bedtime atorvastatin 20 mg Tab 20 mg = 1 tab(s), Oral, Once a day (at bedtime), Refills(s) 0, High cholesterol Start Date: 08/16/14 Status: Ordered benzonatate 100 mg oral capsule (1 source) Non-narcotic Antitussive take 1 capsule by mouth every eight hours Tessalon Perles 100 MG 1 capsule as needed Orally Three times a day Active brexpiprazole 1 mg oral tablet (19 sources) Atypical Antipsychotic Start: 11-18-2022 take 1 tablet by mouth once daily at bedtime Brexpiprazole (Rexulti) 1 mg tablet Active 1 MG PO Daily at bedtime November 18, 2022 12:00am Start: 03-11-2021 take 4 tablets by mo [facility] once daily Rexulti 0.25 mg oral tablet mg tab(s), Oral, Daily, Refills(s) 0, Depression Start Date: 03/11/21 Status: Ordered take 1 tablet by marshal th every twenty-four hours Rexulti 2 MG 1 tablet Orally Once a day Active take 1 tablet by marshal th every twenty-four hours Rexulti 0.5 MG 1 tablet Orally Once a day Active bumetanide 1 mg oral tablet (12 sources) Loop Diuretic Start: 12-29-2022 bumetanide 1 m g Tab Refills(s) 0 Start Date: 12/29/22 Status: Ordered Start: 11-18-2022 take 1 mg by mouth o nce daily at bedtime Bumetanide Active 1 MG PO Daily at bedtime November 18, 2022 12:00am Start: 11-18-2022 take 2 mg by mouth o nce daily in the morning Bumetanide Active 2 MG PO Every morning November 18, 2022 12:00am take 2 tablets by mo uth once daily bumetanide (Bumex) 1 mg tablet Take 2 tablets (2 mg) by mouth once daily. 0 Active take 1 tablet by marshal th every twenty-four hours Bumetanide 1 MG 1 tablet Orally Once a day Active calcium carbonate 500 mg chewable tablet (2 sources) calcium carbonat e (Tums) 200 mg calcium chewable tablet Chew 1 tablet (500 mg) once daily. 0 Active calcium carbonate 1500 mg / cholecalciferol 0.01 mg oral tablet (2 sources) Vitamin D Start: 11-19-19 take 1 tablet by mouth twice daily Calcium Carbonate-Vitamin D3 Active 400 TAB PO Twice daily November 18, 2022 12:00am Calcium Carbonate-Vitamin D 600-5 MG-MCG (1 source) take 1 tablet by mouth twice daily Calcium Carbonate-Vitamin D 600-5 MG-MCG 1 tablet Orally Twice a day Active cholecalciferol 0.025 mg oral tablet (12 sources) Vitamin D Start: 01-01-20 calcium (as carbonate)-vitamin D 90 mg-25 mcg (1000 intl units) oral tablet Refill(s) 0, Prophylaxis Start Date: 12/31/21 Status: Ordered ciprofloxacin 500 mg oral tablet (4 sources) Quinolone Antimicrobial Start: 02-23-20 End: 03-01-20 take 1 tablet by mouth every twelve hours Cipro 500 mg Tab 500 mg = 1 tab(s), Oral, q12hr, X 7 day(s), # 14 tab(s), Refills(s) 0, Pharmacy: [id number], 153, cm, 02/12/23 11:42:00 EDT, Height/Length Dosing, 68.3, kg, 02/03/23 9:09:00 EDT, Weight Dosing Start Date: 02/22/23 Stop Date: 03/01/23 Status: Ordered Start: 02-03-2023 End: 02-06-2023 take 1 tablet by mouth twice daily Cipro 500 mg Tab 500 mg = 1 tab(s), Oral, BID, X 3 day(s), # 6 tab(s), Refills(s) 0, Pharmacy: [id number], 153, cm, 02/03/23 9:09:00 EDT, Height/Length Dosing, 68.3, kg, 02/03/23 9:09:00 EDT, Weight Dosing Start Date: 02/03/23 Stop Date: 02/06/23 Status: Ordered cyclobenzaprine hydrochloride 10 mg oral tablet (10 sources) Muscle Relaxant Start: 11-18-2022 cyclobenzaprin e 10 mg Tab Refills(s) 0 Start Date: 12/29/22 Status: Ordered take 1 tablet by marshal th every twenty-four hours Cyclobenzaprine HCl 10 MG 1 tablet at bedtime as needed Orally Once a day Active dapagliflozin 10 mg oral tablet (9 sources) Sodium-Glucose Cotransporter 2 Inhibitor Start: 11-18-2022 Farxiga 10 mg oral tablet Refills(s) 0 Start Date: 12/29/22 Status: Ordered dexamethasone 1 mg oral tablet (3 sources) Corticosteroid Start: 06-10-2022 take 1 tablet by mouth once dexamethasone 1 mg oral tablet 1 mg = 1 tab(s), Oral, Once, take at 11pm. complete cortisol level at 8am., # 1 tab(s), Refills(s) 0, Pharmacy: [id number], 154, cm, 06/10/22 10:26:00 EST, Height/Length Dosing, 86, kg, 06/10/22 10:26:00 EST, Weight Dosing Start Date: 06/10/22 Status: Ordered 0.5 ml dulaglutide 1.5 mg/ml auto-injector (18 sources) GLP-1 Receptor Agonist Start: 11-18-2022 Dulaglutide (Trulicity) 0.75 mg/0.5 mL pen injector Active 0.75 MG SUBCUT every week November 18, 2022 12:00am Start: 05-10-2017 inject 1.5 mg by sub cutaneous injection every week Trulicity Pen 1.5 mg, SubCutaneous, qWeek, Refills(s) 0, Blood glucose Start Date: 05/10/17 Status: Ordered Trulicity 1.5 MG /0.5ML as directed Subcutaneous Active empagliflozin 5 mg / metFORMIN hydrochloride 1000 mg oral tablet (8 sources) Biguanide, Sodium-Glucose Cotransporter 2 Inhibitor Start: 08-02-2018 take 1 tablet by mouth twice daily Synjardy 5 mg-1000 mg oral tablet 1 tab(s), Oral, BID, Refill(s) 0, Blood glucose Start Date: 08/02/18 Status: Ordered Ensure Active - (1 source) Ensure Active - as directed Orally Active estradiol 0.1 mg/ml vaginal cream (3 sources) Estrogen Start: 02-03-2023 Estrace 0.1 mg/g Cream See Instructions, 42.5 gm, Refill(s) 3, apply pea size amount to urethra/inner vagina 3x/week x 1 month, then 2x/week for maintainence, [id number], 153, cm, 02/03/23 9:09:00 EDT, Height/Length Dosing, 68.3, kg, 02/03/23 9:09:00 EDT, Weight Dosing Start Date: 02/03/23 Status: Ordered ferrous sulfate (8 sources) Start: 12-31-2021 ferrous sulfate Oral, Refills(s) 0, Prophylaxis Start Date: 12/31/21 Status: Ordered Start: 12-31-2021 ferrous sulfat e Oral, Refills(s) 0 Start Date: 12/31/21 Status: Ordered Fish Oils (12 sources) Start: 05-11-2017 take 1000 mg by mouth once daily Fish Oil 1,000 mg, Oral, Daily, Refill(s) 0, Prophylaxis Start Date: 05/11/17 Status: Ordered FLUoxetine 40 mg oral capsule (19 sources) Serotonin Reuptake Inhibitor Start: 08-16-2014 take 40 mg by mouth once daily fluoxetine 40 mg, Oral, Daily, Refills(s) 0, Depression Start Date: 08/16/14 Status: Ordered take 1 capsule by [facility] every twenty-four hours FLUoxetine HCl 20 MG 1 capsule Orally Once a day Active Fluticasone Propion-Salmeterol (18 sources) Corticosteroid, beta2-Adrenergic Agonist Start: 11-18-2022 Fluticasone Propion-Salmeterol (Advair Diskus) 250-50 mcg/dose blister with device Active 2 INH INHALATION Four times daily November 18, 2022 12:00am Start: 05-11-2017 take 1 puff(s) by in halation twice daily Advair 250 mcg-50 mcg Powder 1 puff(s), Inhalation, BID, Refill(s) 0, Shortness of breath or wheezing Start Date: 05/11/17 Status: Ordered take 1 puff(s) by mo ut twice daily fluticasone propion-salmeteroL (Advair Diskus) 250-50 mcg/dose diskus inhaler Inhale 1 puff 2 times a day. Rinse mouth with water after use to reduce aftertaste and incidence of candidiasis. Do not swallow. 0 Active take 2 puff(s) by in halation every four hours Advair Diskus 250-50 MCG/ACT Inhalation Aerosol Powder Breath Activated 2 PUFFS EVERY 4 HOURS Quantity: 0 Refills: 0 Ordered: 28-Dec-2022 DO Active take 1 puff(s) by in halation twice daily Advair Diskus 250-50 MCG/ACT 1 puff Inhalation Twice a day Active furosemide 40 mg oral tablet (9 sources) Loop Diuretic Start: 05-10-2017 take 1 tablet by mouth twice daily furosemide 40 mg Tab 40 mg = 1 tab(s), Oral, BID, Refills(s) 0, diuretic/water pill Start Date: 05/10/17 Status: Ordered insulin isophane, human 70 unt/ml / insulin, regular, human 30 unt/ml injectable suspension (11 sources) Insulin Start: 02-03-2023 Novolin 70/30 10 mL Susp-Inj Refills(s) 0 Start Date: 02/03/23 Status: Ordered Start: 05-10-2017 Novolin 70/30 45 - 50 units, SubCutaneous, BIDAC, Refill(s) 0, Blood glucose Start Date: 05/10/17 Status: Ordered insulin lispro 100 unt/ml injectable solution (1 source) Insulin Analog Insulin Lispro 1 00 UNIT/ML as directed Injection Active ammonium lactate 120 mg/ml topical lotion (2 sources) Start: 11-18-2022 Ammonium Lactate Active TOPICAL November 18, 2022 12:00am lactobacillus acidophilus 0.05 mg / lactobacillus bulgaricus 0.05 mg oral tablet (1 source) Lactobacillus Pr obiotic - as directed Orally TWICE A DAY Active Keppra (3 sources) Start: 04-28-2023 Keppra BID, Refills(s) 0 Start Date: 04/28/23 Status: Ordered take 1 tablet by mouth twice cha ly levETIRAcetam (Keppra) 500 mg tablet Take 1 tablet (500 mg) by mouth 2 times a day. 0 Active lisinopril 20 mg oral tablet (14 sources) Angiotensin Converting Enzyme Inhibitor Start: 08-16-2014 take 1 tablet by mouth once daily lisinopril 20 mg Tab 20 mg = 1 tab(s), Oral, Daily, Refills(s) 0, High blood pressure Start Date: 08/16/14 Status: Ordered loratadine 10 mg oral tablet (4 sources) Start: 12-29-2022 loratadine 10 mg Tab Refills(s) 0 Start Date: 12/29/22 Status: Ordered Magnesium (1 source) take 1 capsule by mouth twice daily at mealtime Magnesium 400 MG 1 capsule with food Orally Twice a day Active magnesium amino acid chelate (8 sources) Start: 12-31-2021 magnesium gibbons o acids chelate Oral, Refills(s) 0, Prophylaxis Start Date: 12/31/21 Status: Ordered Start: 12-31-2021 magnesium gibbons o acids chelate Oral, Refills(s) 0 Start Date: 12/31/21 Status: Ordered magnesium oxide 400 mg oral tablet (9 sources) Start: 11-18-2022 End: 01-27-2023 magnesium oxide 400 mg Tab Refills(s) 0 Start Date: 12/29/22 Status: Ordered magnesium oxide (Mag-Ox) 400 mg tablet 1 tablet (400 mg) once daily. 0 Active metoclopramide 10 mg oral tablet (12 sources) Dopamine-2 Receptor Antagonist Start: 01-25-2020 Reglan 10 mg Tab 10 mg = 1 tab(s), Oral, QIDACHS, # 1 tab(s), Refills(s) 0, Pharmacy: [facility], 154, cm, 01/25/20 14:09:00 EDT, Height/Length Dosing, 88.5, kg, 01/25/20 14:09:00 EDT, Weight Dosing Start Date: 01/25/20 Status: Ordered metOLazone 2.5 mg oral tablet (8 sources) Thiazide-like Diuretic Start: 11-20-2022 metolazone 2.5 mg Tab Refills(s) 0 Start Date: 12/29/22 Status: Ordered metoprolol tartrate 50 mg oral tablet (19 sources) beta-Adrenergic Georgie Start: 08-16-2014 take 1 tablet by mouth twice daily Metoprolol tartrate 50 mg Tab 50 mg = 1 tab(s), Oral, BID, Refills(s) 0, High blood pressure Start Date: 08/16/14 Status: Ordered Midol Extended Relief (8 sources) Start: 08-02-2018 take 220 mg by mouth every eight hours as needed for pain Midol Extended Relief 220 mg, Oral, q8hr, PRN as needed for pain, Refills(s) 0 Start Date: 08/02/18 Status: Ordered 24 hr mirabegron 50 mg extended release oral tablet (1 source) beta3-Adrenergic Agonist Start: 04-28-2023 take 1 tablet by mouth once daily Myrbetriq 50 mg oral tablet, extended release 50 mg = 1 tab(s), Oral, Daily, # 30 tab(s), Refills(s) 6, Pharmacy: [facility], 153, cm, 04/28/23 9:47:00 EST, Height/Length Dosing, 68.3, kg, 04/28/23 9:47:00 EST, Weight Dosing Start Date: 04/28/23 Status: Ordered Multi For Her 50+ - (1 source) Multi For Her 50 + - as directed Orally Active omeprazole 40 mg delayed release oral capsule (5 sources) Proton Pump Inhibitor Start: 12-29-2022 omeprazole 40 mg Cap-DR Refills(s) 0 Start Date: 12/29/22 Status: Ordered take 1 capsule by mouth twice da chitra Omeprazole 40 MG 1 capsule 30 minutes before morning meal Orally twice a day Active ondansetron 4 mg oral tablet (7 sources) Serotonin-3 Receptor Antagonist Start: 12-29-2022 ondansetron 4 mg Tab Refills(s) 0 Start Date: 12/29/22 Status: Ordered oxygen (O2) gas therapy (2 sources) oxygen (O2) gas therapy Inhale 1 each continuously. 0 Active polyethylene glycol 3350 32114 mg powder for oral solution (4 sources) Osmotic Laxative Start: 08-08-2020 Miralax 3350 17 gram packet 17 gram, Oral, Daily, # 255 gram, Refills(s) 3, Pharmacy: [facility], 154, cm, 08/08/20 12:03:00 EDT, Height/Length Dosing, 88.1, kg, 08/08/20 12:03:00 EDT, Weight Dosing Start Date: 08/08/20 Status: Ordered polyethylene glycol 3350 698836 mg / potassium chloride 1480 mg / sodium bicarbonate 5720 mg / sodium chloride 94477 mg powder for oral solution (2 sources) Osmotic Laxative Start: 12-31-2021 NuLYTELY Crane oral powder for reconstitution See Instructions, 1 EA, Refill(s) 0, Prior to colonoscopy., [facility], 154, cm, 12/31/21 14:58:00 EDT, Height/Length Dosing, 79.4, kg, 12/31/21 14:58:00 EDT, Weight Dosing Start Date: 12/31/21 Status: Ordered polymyxin b 98091 unt/ml / trimethoprim 1 mg/ml ophthalmic solution (1 source) Dihydrofolate Reductase Inhibitor Antibacterial, Polymyxin-class Antibacterial Start: 12-13-2021 take 1 drop(s) into the eye(s) four times daily Polymyxin B-Trimethoprim 60887-4.1 UNIT/ML 1 drop into affected eye Ophthalmic Four times a day for 5 day(s) Dec, Active Potassium Chloride (14 sources) Start: 08-16-2014 Klor-Con M20 20 mEq, Oral, BID, Refills(s) 0, Prophylaxis Start Date: 08/16/14 Status: Ordered End: 03-30-2023 take 1 tablet by mouth once daily potassium chloride CR 20 mEq ER tablet Take 1 tablet (20 mEq) by mouth once daily. Do not crush or chew. 0 03/30/2023 Discontinued (Other) ProAir HFA 90 mcg/inh inhalation aerosol (5 sources) Start: 05-11-2017 take 1 puff(s) by inhalation every four hours ProAir HFA 90 mcg/inh inhalation aerosol 1 puff(s), Inhalation, q4hr Shortness of breath or wheezing, Refill(s) 0 Start Date: 05/11/17 Status: Ordered promethazine hydrochloride 25 mg oral tablet (10 sources) Phenothiazine Start: 05-11-2017 take 25 mg by mouth every six hours as needed for nausea promethazine 25 mg, Oral, q6hr, PRN as needed for nausea/vomiting, Refills(s) 0 Start Date: 05/11/17 Status: Ordered psyllium 525 mg oral capsule (3 sources) Start: 12-31-2021 End: 03-31-2022 take 1 capsule by mouth once daily Metamucil 525 mg oral capsule 1 cap, Oral, Daily, X 90 day(s), # 90 cap(s), Refills(s) 0, Pharmacy: [id number], 154, cm, 12/31/21 14:58:00 EDT, Height/Length Dosing, 79.4, kg, 12/31/21 14:58:00 EDT, Weight Dosing Start Date: 12/31/21 Stop Date: 03/31/22 Status: Ordered tiZANidine 4 mg oral tablet (19 sources) Central alpha-2 Adrenergic Agonist Start: 11-18-2022 take 4 mg by mouth three times daily Tizanidine Active 4 MG PO Three times daily November 18, 2022 12:00am Start: 09-10-2020 take 1 mg by mouth t hree times daily tizanidine 4 mg oral capsule mg cap(s), Oral, TID, Refills(s) 0, Spasm Start Date: 09/10/20 Status: Ordered take 1 tablet by marshal th every twelve hours tiZANidine HCl 4 MG 1 tablet as needed Orally TWICE A DAY Active Ventolin HFA 90 mcg/inh Aerosol (12 sources) Start: 05-11-2017 take 2 puff(s) by inhalation four times daily Ventolin HFA 90 mcg/inh Aerosol 2 puff(s), Inhalation, QID, Refill(s) 0, Shortness of breath or wheezing Start Date: 05/11/17 Status: Ordered vitamin e 180 mg oral tablet (8 sources) Start: 08-02-2018 take 180 mg by mouth once daily vitamin E 180 mg, Oral, Daily, Refills(s) 0, Prophylaxis Start Date: 08/02/18 Status: Ordered Completed/Discontinued Medications Medication Drug Class(es) Dates Sig (Normalized) Sig (Original) cephalexin 500 mg oral capsule (4 sources) Cephalosporin Antibacterial Start: 10-30-2020 take 1 capsule by mouth once daily Keflex 500 mg Cap 500 mg = 1 cap(s), Oral, q12hr, take 1 capsule the day prior to procedure, take 2nd capsule day of procedure, # 2 cap(s), Refills(s) 0, called to pharmacy (Rx) Start Date: 10/30/20 Status: Ordered Oxygen (1 source) Oxygen 3-4 LPM Quantity: 0 Refills: 0 Ordered: 28-Dec-2022 DO Active triamcinolone acetonide 40 mg/ml injectable suspension (2 sources) Corticosteroid Start: 12-13-2021 [id number]-40 13 Dec, 2021 40 mg Problems Active Problems Problem Classification Problem Date Documented Date Episodic/Chronic Abdominal hernia (4 sources) Incisional hernia without obstruction or gangrene; Translations: [INCISIONAL HERNIA WITHOUT OBSTRUCTION OR GANGRENE] Onset: 8 Episodic Abdominal pain (13 sources) Lower abdominal pain; Translations: [Lower abdominal pain, unspecified] Onset: 2 Episodic Acute and unspecified renal failure (1 source) Acute kidney failure, unspecified; Translations: [ACUTE KIDNEY FAILURE UNSPECIFIED] Onset: 3 Episodic Allergic reactions (1 source) Allergy status to other drugs, medicaments and biological substances status; Translations: [ALLERGY STATUS OTH RX MED AND BIO SUBST] Onset: 3 Episodic Anxiety disorders (13 sources) Panic attack; Translations: [Anxiety disorder, unspecified] Onset: 3 11-07-2019 Chronic Cardiac dysrhythmias (11 sources) Unspecified atrial fibrillation; Translations: [Paroxysmal atrial fibrillation] Onset: 2 Chronic Chronic kidney disease (6 sources) Chronic kidney disease; Translations: [Chronic kidney disease, unspecified] Onset: 2 03-30-2023 Chronic Chronic kidney disease (2 sources) Chronic kidney disease; Translations: [CHRONIC KIDNEY DISEASE STAGE 3B] Onset: 2 Chronic obstructive pulmonary disease and bronchiectasis (6 sources) Chronic obstructive pulmonary disease with (acute) lower respiratory infection; Translations: [Chronic obstructive pulmonary disease with (acute) exacerbation] Onset: 2 Chronic Congestive heart failure; nonhypertensive (20 sources) Acute on chronic combined systolic (congestive) and diastolic (congestive) heart failure; Translations: [Chronic diastolic (congestive) heart failure] Onset: 2 Chronic Deficiency and other anemia (1 source) Anemia of renal disease; Translations: [Anemia in chronic kidney disease] Chronic Deficiency and other anemia (2 sources) Anemia in chronic kidney disease; Translations: [ANEMIA IN CHRONIC KIDNEY DISEASE] Onset: 2 Chronic Deficiency and other anemia (1 source) Anemia, unspecified; Translations: [ANEMIA UNSPECIFIED] Onset: 3 Episodic Diabetes mellitus with complications (3 sources) Disorder of kidney due to diabetes mellitus; Translations: [Type 2 diabetes mellitus with diabetic chronic kidney disease] Onset: 3 Chronic Diabetes mellitus without complication (17 sources) Type 2 diabetes mellitus without complications; Translations: [Diabetes mellitus] Onset: 8 11-07-2019 Chronic Disorders of lipid metabolism (4 sources) Pure hypercholesterolemia, unspecified; Translations: [Mixed hyperlipidemia] Onset: 3 03-30-2023 Chronic Diverticulosis and diverticulitis (1 source) Diverticulosis of large intestine without perforation or abscess without bleeding; Translations: [DVRTCLOS OF LG INT W/O PERFORATION OR ABSCESS W/O BLEEDING] Onset: 8 Chronic Esophageal disorders (15 sources) Haddad's esophagus; Translations: [Haddad's esophagus without dysplasia] Onset: 2 Chronic Essential hypertension (5 sources) Essential (primary) hypertension; Translations: [Essential hypertension] Onset: 2 Chronic Genitourinary symptoms and ill-defined conditions (3 sources) Incontinence without sensory awareness 02-03-2023 Chronic Genitourinary symptoms and ill-defined conditions (20 sources) Retention of urine; Translations: [Retention of urine, unspecified] Onset: 3 Episodic Heart valve disorders (10 sources) Nonrheumatic aortic (valve) stenosis; Translations: [Rheumatic tricuspid insufficiency] Onset: 2 11-19-2022 Chronic Hypertension with complications and secondary hypertension (2 sources) Chronic kidney disease due to hypertension; Translations: [Hypertensive chronic kidney disease with stage 1 through stage 4 chronic kidney disease, or unspecified chronic kidney disease] Chronic Lymphadenitis (1 source) Localized enlarged lymph nodes; Translations: [LOCALIZED ENLARGED LYMPH NODES] Onset: 8 Episodic Medical examination/evaluatio n (1 source) Encounter for other preprocedural examination; Translations: [ENCOUNTER FOR OTHER PREPROCEDURAL EXAMINATION] Onset: 8 Episodic Mood disorders (14 sources) Depressive disorder; Translations: [Major depressive disorder, single episode, unspecified] Onset: 3 11-07-2019 Chronic Nutritional deficiencies (1 source) Moderate protein-calorie malnutrition; Translations: [MODERATE PROTEIN-CALORIE MLNUTRIT] Onset: 3 Chronic Osteoarthritis (13 sources) Arthritis; Translations: [Unspecified osteoarthritis, unspecified site] Onset: 3 11-07-2019 Chronic Other aftercare (2 sources) Other snf (current) drug therapy; Translations: [OTHER SNF (CURRENT) DRUG THERAPY] Onset: 8 Episodic Other aftercare (1 source) USP (current) use of anticoagulants; Translations: [SNF CURRNT USE ANTICOAGULANTS] Onset: 3 Episodic Other aftercare (1 source) terminal make up operator (current) use of inhaled steroids; Translations: [SNF USE OF INHALED STEROIDS] Onset: 3 Episodic Other aftercare (4 sources) Drug therapy finding; Translations: [Long-term (current) use of anticoagulants] Onset: 3 03-30-2023 Episodic Other and ill-defined heart disease (12 sources) Heart disease 09-10-2020 Chronic Other and unspecified benign neoplasm (20 sources) History of polyp of colon; Translations: [Personal history of colonic polyps] Onset: 2 Episodic Other and unspecified benign neoplasm (12 sources) Polyp of colon 02-27-2020 Episodic Other circulatory disease (1 source) Low blood pressure; Translations: [Hypotension, unspecified] Episodic Other connective tissue disease (12 sources) Spasm 11-07-2019 Episodic Other diseases of kidney and ureters (8 sources) Renal mass 06-10-2022 Chronic Other diseases of kidney and ureters (1 source) Secondary hyperparathyroidism; Translations: [Secondary hyperparathyroidism of renal origin] Chronic Other diseases of kidney and ureters (1 source) Secondary hyperparathyroidism of renal origin Chronic Other diseases of kidney and ureters (4 sources) Other specified disorders of kidney and ureter; Translations: [OTHER SPEC DISORDERS KIDNEY URETER] Onset: 3 Chronic Other diseases of kidney and ureters (1 source) Cyst of kidney, acquired; Translations: [CYST OF KIDNEY, ACQUIRED] Onset: 8 Episodic Other diseases of kidney and ureters (5 sources) Acquired renal cyst without neoplastic change; Translations: [Cyst of kidney, acquired] Onset: 3 Episodic Other diseases of kidney and ureters (8 sources) Cyst of kidney 06-10-2022 Episodic Other disorders of stomach and duodenum (12 sources) Gastroparesis syndrome 01-25-2020 Episodic Other endocrine disorders (6 sources) Other specified disorders of adrenal gland; Translations: [OTHER SPECIFIED DISORDERS OF ADRENAL GLAND] Onset: 8 Chronic Other endocrine disorders (5 sources) Disorder of adrenal gland; Translations: [Other specified disorders of adrenal gland] Onset: 3 Chronic Other gastrointestinal disorders (1 source) Irritable bowel syndrome without diarrhea; Translations: [IRRITABLE BOWEL SYND W/O DIARRHEA] Onset: 2 Chronic Other gastrointestinal disorders (1 source) Irritable bowel syndrome with diarrhea; Translations: [IRRITABLE BOWEL SYND W/DIARRHEA] Onset: 3 Chronic Other gastrointestinal disorders (1 source) Abnormal feces; Translations: [Other fecal abnormalities] Onset: 2 Episodic Other gastrointestinal disorders (13 sources) Dysphagia; Translations: [Dysphagia, unspecified] Onset: 2 Episodic Other gastrointestinal disorders (12 sources) Chronic constipation with overflow 10-17-2020 Episodic Other gastrointestinal disorders (12 sources) Constipation 02-27-2020 Episodic Other gastrointestinal disorders (12 sources) Heartburn 01-25-2020 Episodic Other gastrointestinal disorders (12 sources) Loose stool 12-31-2021 Episodic Other gastrointestinal disorders (1 source) Diarrhea; Translations: [Diarrhea, unspecified] Onset: 2 Episodic Other gastrointestinal disorders (8 sources) Adrenal mass 06-10-2022 Episodic Other hereditary and degenerative nervous system conditions (1 source) Restless legs syndrome; Translations: [RESTLESS LEGS SYNDROME] Onset: 3 Chronic Other inflammatory condition of skin (12 sources) Psoriatic arthritis 11-07-2019 Chronic Other liver diseases (13 sources) Steatosis of liver; Translations: [Fatty (change of) liver, not elsewhere classified] Onset: 2 Chronic Other nutritional; endocrine; and metabolic disorders (12 sources) Morbid obesity 08-20-2014 Chronic Other nutritional; endocrine; and metabolic disorders (1 source) Hypocalcemia; Translations: [HYPOCALCEMIA] Onset: 3 Chronic Other nutritional; endocrine; and metabolic disorders (1 source) Body mass index (BMI) 31.0-31.9, adult; Translations: [BODY MASS INDEX BMI 31.0-31.9 ADULT] Onset: 2 Chronic Other nutritional; endocrine; and metabolic disorders (1 source) Obesity, unspecified; Translations: [OBESITY UNSPECIFIED] Onset: 2 Chronic Other nutritional; endocrine; and metabolic disorders (1 source) Hypomagnesemia; Translations: [HYPOMAGNESEMIA] Onset: 3 Chronic Other nutritional; endocrine; and metabolic disorders (1 source) Body mass index (BMI) 34.0-34.9, adult; Translations: [BODY MASS INDEX BMI 34.0-34.9 ADULT] Onset: 3 Chronic Other nutritional; endocrine; and metabolic disorders (3 sources) Body mass index 30+ - obesity; Translations: [Body mass index (BMI) 31.0-31.9, adult] Onset: 3 03-30-2023 Chronic Other nutritional; endocrine; and metabolic disorders (1 source) Overweight in adulthood with body mass index of 25 or more but less than 30; Translations: [Overweight] Episodic Other screening for suspected conditions (not mental disorders or infectious disease) (4 sources) Echocardiogram abnormal; Translations: [Nonspecific (abnormal) findings on radiological and other examination of other intrathoracic organs] Onset: 3 03-30-2023 Episodic Peripheral and visceral atherosclerosis (1 source) Atherosclerosis of aorta; Translations: [ATHEROSCLEROSIS OF AORTA] Onset: 8 Chronic Pneumonia (except that caused by tuberculosis or sexually transmitted disease) (2 sources) Pneumonia, unspecified organism; Translations: [PNEUMONIA UNSPECIFIED ORGANISM] Onset: 2 Episodic Pulmonary heart disease (10 sources) Pulmonary hypertension, unspecified; Translations: [Pulmonary hypertension] Onset: 3 Chronic Residual codes; unclassified (1 source) Sleep apnea, unspecified; Translations: [SLEEP APNEA UNSPECIFIED] Onset: 3 Chronic Residual codes; unclassified (4 sources) Obstructive sleep apnea (adult) (pediatric); Translations: [OBSTRUCTIVE SLEEP APNEA] Onset: 2 Chronic Residual codes; unclassified (1 source) Acquired absence of both cervix and uterus; Translations: [ACQUIRED ABSENCE BOTH CERVIX AND UTERUS] Onset: 3 Episodic Residual codes; unclassified (1 source) Other specified postprocedural states; Translations: [OTH SPECIFIED POSTPROCEDURAL STATES] Onset: 3 Episodic Residual codes; unclassified (1 source) Family history of asthma and other chronic lower respiratory diseases; Translations: [FAM HX ASTHMA AND OTH CHRON LOW RESP DZ] Onset: 3 Episodic Residual codes; unclassified (1 source) Family history of ischemic heart disease and other diseases of the circulatory system; Translations: [FAM HX ISCHEMIC HRT DZ OTH DZ CIRC] Onset: 3 Episodic Residual codes; unclassified (1 source) Family history of stroke; Translations: [FAMILY HISTORY OF STROKE] Onset: 3 Episodic Respiratory failure; insufficiency; arrest (adult) (3 sources) Dependence on supplemental oxygen; Translations: [Acute and chronic respiratory failure with hypoxia] Onset: 3 Chronic Substance-related disorders (5 sources) Nicotine dependence, cigarettes, uncomplicated; Translations: [Smoker] Onset: 3 03-30-2023 Chronic Comment on above: 1/2 ppd; Syncope (3 sources) Syncope and collapse; Translations: [SYNCOPE AND COLLAPSE] Onset: 3 Episodic Unclassified (2 sources) Acquired absence of other specified parts of digestive tract; Translations: [ACQUIRED ABSENCE OF OTHER SPECIFIED PARTS OF DIGESTIVE TRACT] Onset: 8 Episodic Unclassified (8 sources) Asymptomatic microscopic hematuria 06-10-2022 Unclassified (1 source) PERSONAL HISTORY OF COVID-19; Translations: [PERSONAL HISTORY OF COVID-19] Onset: 3 Unclassified (1 source) Chronic atrial fibrillation, unspecified; Translations: [CHRONIC ATRIAL FIBRILLATION UNSPEC] Onset: 3 Unclassified (1 source) CHRN KIDNEY DISEASE STG 3 UNSP; Translations: [CHRN KIDNEY DISEASE STG 3 UNSP] Onset: 3 Unclassified (1 source) ACCOUNT INSTALLATION SPECIALIST INJECT NONINSULN ANTIDIAB; Translations: [ACCOUNT INSTALLATION SPECIALIST INJECT NONINSULN ANTIDIAB] Onset: 3 Unclassified (1 source) CONTACT W/AND (SUSP) EXPOS COVID-19; Translations: [CONTACT W/AND (SUSP) EXPOS COVID-19] Onset: 3 Unclassified (1 source) COUGH, UNSPECIFIED; Translations: [COUGH, UNSPECIFIED] Onset: 2 Urinary tract infections (20 sources) Acute cystitis; Translations: [Postinfective urethral stricture of female] Onset: 2 06-10-2022 Episodic Viral infection (1 source) COVID-19; Translations: [COVID-19] Onset: 2 Past or Other Problems Problem Classification Problem Date Documented Date Episodic/Chronic Bacterial infection; unspecified site (1 source) Other specified bacterial agents as the cause of diseases classified elsewhere; Translations: [OTH SPEC BACTERIAL DZ CLASS ELSW] Onset: Episodic Deficiency and other anemia (5 sources) Iron deficiency anemia, unspecified; Translations: [IRON DEFICIENCY ANEMIA UNSPECIFIED] Onset: Episodic Epilepsy; convulsions (5 sources) Unspecified convulsions; Translations: [UNSPECIFIED CONVULSIONS] Onset: Episodic Fever of unknown origin (4 sources) Fever, unspecified; Translations: [FEVER UNSPECIFIED] Onset: Episodic Fluid and electrolyte disorders (2 sources) Hyperosmolality and hypernatremia; Translations: [Hypokalemia] Onset: Episodic Intestinal infection (1 source) Enterocolitis due to Clostridium difficile, not specified as recurrent; Translations: [ENTROCOLIT DT C DIF NOT SPEC REC] Onset: Episodic Malaise and fatigue (3 sources) Other fatigue; Translations: [Weakness] Onset: Episodic Mood disorders (2 sources) Mood disorders; Translations: [DEPRESSION UNSPECIFIED] Onset: 04-23-2023 Other aftercare (1 source) USP (current) use of aspirin; Translations: [SNF CURRENT USE OF ASPIRIN] Onset: Episodic Other aftercare (1 source) USP (current) use of insulin; Translations: [ACCOUNT INSTALLATION SPECIALIST CURRENT USE OF INSULIN] Onset: Episodic Other eye disorders (1 source) Other specified disorders of eye and adnexa Onset: Resolve d: Episodic Other hematologic conditions (1 source) Other specified abnormalities of plasma proteins; Translations: [OTH SPEC ABNORM PLASMA PROTEINS] Onset: Episodic Other lower respiratory disease (1 source) Dyspnea, unspecified; Translations: [DYSPNEA UNSPECIFIED] Onset: Episodic Other lower respiratory disease (1 source) Hypoxemia; Translations: [HYPOXEMIA] Onset: Episodic Other lower respiratory disease (3 sources) Shortness of breath; Translations: [SHORTNESS OF BREATH] Onset: Episodic Other upper respiratory disease (1 source) Nasal congestion; Translations: [NASAL CONGESTION] Onset: Episodic Screening and history of mental health and substance abuse codes (1 source) Personal history of nicotine dependence; Translations: [PERSONAL HISTORY OF NICOTINE DEPEND] Onset: Episodic Unclassified (2 sources) Unknown / UNK(Unknown) Onset: Unclassified (10 sources) Esophagogastroduodenoscopy gastric outlet reduction Onset: 02-16-2022 Unclassified (1 source) Exposure to 2019 novel coronavirus; Translations: [Contact with and (suspected) exposure to COVID19] Unclassified (2 sources) Onset: 03-30-2023 Results Test Name Value Interpretation Reference Range Facil ity Ambulatory Visit Summaryon 1 06-29-2022 Ambulatory Visit Summary MARTIN HAGEN :1950 Visit Date:04/28/2023 Ambulatory Visit Instructions Your Diagnosis Recurrent UTI Pneumaturia Adrenal mass Urinary retention Renal cyst Urgency of urination Your Care Team Attending Physician - Jacqui Michael MD Primary Care Physician - SHAWN BARBER MD Referring Physician - Jacqui Michael MD This Is Your Medications List estradiol topical (Estrace 0.1 mg/g Cream) Contact prescribing physician if questions or concerns acetaminophen-hydrocod one (acetaminophen-hydroco done 325 mg-5 mg oral tablet) albuterol (Ventolin HFA 90 mcg/inh Aerosol) alprazolam (alprazolam 1 mg Tab) apixaban (Eliquis 5 mg oral tablet) atorvastatin (atorvastatin 20 mg Tab) brexpiprazole (Rexulti 0.25 mg oral tablet) bumetanide (bumetanide 1 mg Tab) calcium-vitamin D (calcium (as carbonate)-vitamin D 90 mg-25 mcg (1000 intl units) oral tablet) cyclobenzaprine (cyclobenzaprine 10 mg Tab) dapagliflozin (Farxiga 10 mg oral tablet) dulaglutide (Trulicity Pen) fluoxetine fluticasone-salmeterol (Advair 250 mcg-50 mcg Powder) insulin isophane-insulin regular (Novolin 70/30 10 mL Susp-Inj) levetiracetam (Keppra) lisinopril (lisinopril 20 mg Tab) loratadine (loratadine 10 mg Tab) magnesium oxide (magnesium oxide 400 mg Tab) metoclopramide (Reglan 10 mg Tab) metolazone (metolazone 2.5 mg Tab) metoprolol (Metoprolol tartrate 50 mg Tab) omega-3 polyunsaturated fatty acids (Fish Oil) omeprazole (omeprazole 40 mg Cap-DR) ondansetron (ondansetron 4 mg Tab) potassium chloride (Klor-Con M20) tizanidine (tizanidine 4 mg oral capsule) Procedures Performed Cystoscopy (02/22/2023), Cystoscopy (12/02/2020), Cholecystectomy, Colonoscopy, History of hernia repair, History of hysterectomy.. Discharge Vitals Temperature (Temporal Artery) 36.1 ?C Heart Rate (Peripheral) 74 Blood Pressure 124/86 Height 153 cm Height 60 in Weight 68.3 kg Weight 150.26 lb BMI 29.18 What to do next Scheduled Follow-Up Appointments Wednesday 1:20 PM EST With: Lani Wasserman CNP Where: [facility] Ambulatory Visit Summary MARTIN HAGEN :1950 Visit Date:04/28/2023 Ambulatory Visit Instructions Your Diagnosis Recurrent UTI Pneumaturia Adrenal mass Urinary retention Renal cyst Urgency of urination Your Care Team Attending Physician - Jacqui Michael MD Primary Care Physician - SHAWN BARBER MD Referring Physician - Jacqui Michael MD This Is Your Medications List estradiol topical (Estrace 0.1 mg/g Cream) Contact prescribing physician if questions or concerns acetaminophen-hydrocod one (acetaminophen-hydroco done 325 mg-5 mg oral tablet) albuterol (Ventolin HFA 90 mcg/inh Aerosol) alprazolam (alprazolam 1 mg Tab) apixaban (Eliquis 5 mg oral tablet) atorvastatin (atorvastatin 20 mg Tab) brexpiprazole (Rexulti 0.25 mg oral tablet) bumetanide (bumetanide 1 mg Tab) calcium-vitamin D (calcium (as carbonate)-vitamin D 90 mg-25 mcg (1000 intl units) oral tablet) cyclobenzaprine (cyclobenzaprine 10 mg Tab) dapagliflozin (Farxiga 10 mg oral tablet) dulaglutide (Trulicity Pen) fluoxetine fluticasone-salmeterol (Advair 250 mcg-50 mcg Powder) insulin isophane-insulin regular (Novolin 70/30 10 mL Susp-Inj) levetiracetam (Keppra) lisinopril (lisinopril 20 mg Tab) loratadine (loratadine 10 mg Tab) magnesium oxide (magnesium oxide 400 mg Tab) metoclopramide (Reglan 10 mg Tab) metolazone (metolazone 2.5 mg Tab) metoprolol (Metoprolol tartrate 50 mg Tab) omega-3 polyunsaturated fatty acids (Fish Oil) omeprazole (omeprazole 40 mg Cap-DR) ondansetron (ondansetron 4 mg Tab) potassium chloride (Klor-Con M20) tizanidine (tizanidine 4 mg oral capsule) Procedures Performed Cystoscopy (02/22/2023), Cystoscopy (12/02/2020), Cholecystectomy, Colonoscopy, History of hernia repair, History of hysterectomy.. Discharge Vitals Temperature (Temporal Artery) 36.1 ?C Heart Rate (Peripheral) 74 Blood Pressure 124/86 Height 153 cm Height 60 in Weight 68.3 kg Weight 150.26 lb BMI 29.18 What to do next Scheduled Follow-Up Appointments Wednesday 1:20 PM EST With: Lani Wasserman CNP Where: [facility] Patient Educationon 04-28-20 Patient Education Obstetrics and Gynecology Urinary Tract Infection, Adult A urinary tract infection (UTI) is an infection of any part of the urinary tract. The urinary tract includes: ? The kidneys. ? The ureters. ? The bladder. ? The urethra. These organs make, store, and get rid of pee (urine) in the body. What are the causes? This infection is caused by germs (bacteria) in your genital area. These germs grow and cause swelling (inflammation) of your urinary tract. What increases the risk? The following factors may make you more likely to develop this condition: ? Using a small, thin tube (catheter) to drain pee. ? Not being able to control when you pee or poop (incontinence). ? Being female. If you are female, these things can increase the risk: ? Using these methods to prevent : ? A medicine that kills sperm (spermicide). ? A device that blocks sperm (diaphragm). ? Having low levels of a female hormone (estrogen). ? Being . You are more likely to develop this condition if: ? You have genes that add to your risk. ? You are sexually active. ? You take antibiotic medicines. ? You have trouble peeing because of: ? A prostate that is bigger than normal, if you are male. ? A blockage in the part of your body that drains pee from the bladder. ? A kidney stone. ? A nerve condition that affects your bladder. ? Not getting enough to drink. ? Not peeing often enough. ? You have other conditions, such as: ? Diabetes. ? A weak disease-fighting system (immune system). ? Sickle cell disease. ? Gout. ? Injury of the spine. What are the signs or symptoms? Symptoms of this condition include: ? Needing to pee right away. ? Peeing small amounts often. ? Pain or burning when peeing. ? Blood in the pee. ? Pee that smells bad or not like normal. ? Trouble peeing. ? Pee that is cloudy. ? Fluid coming from the vagina, if you are female. ? Pain in the belly or lower back. Other symptoms include: ? Vomiting. ? Not feeling hungry. ? Feeling mixed up (confused). This may be the first symptom in older adults. ? Being tired and grouchy (irritable). ? A fever. ? Watery poop (diarrhea). How is this treated? ? Taking antibiotic medicine. ? Taking other medicines. ? Drinking enough water. In some cases, you may need to see a specialist. Follow these instructions at home: Medicines ? Take zrcm-cux-qvqzqma and prescription medicines only as told by your doctor. ? If you were prescribed an antibiotic medicine, take it as told by your doctor. Do not stop taking it even if you start to feel better. General instructions ? Make sure you: ? Pee until your bladder is empty. ? Do not hold pee for a long time. ? Empty your bladder after sex. ? Wipe from front to back after peeing or pooping if you are a female. Use each tissue one time when you wipe. ? Drink enough fluid to keep your pee pale yellow. ? Keep all follow-up visits. Contact a doctor if: ? You do not get better after 1?2 days. ? Your symptoms go away and then come back. Get help right away if: ? You have very bad back pain. ? You have very bad pain in your lower belly. ? You have a fever. ? You have chills. ? You feeling like you will vomit or you vomit. Summary ? A urinary tract infection (UTI) is an infection of any part of the urinary tract. ? This condition is caused by germs in your genital area. ? There are many risk factors for a UTI. ? Treatment includes antibiotic medicines. ? Drink enough fluid to keep your pee pale yellow. This information is not intended to replace advice given to you by your health care provider. Make sure you discuss any questions you have with your health care provider. Document Revised: 11/29/2020 Document Reviewed: 11/29/2020 [email or web address] Patient Education ? 2022 [employer]. [facility] Urology Office/Clinic Noteon 04-28-2023 Urology Office/Clinic Note Chief Complaint S/p to Cysto HPI Staff S/P Cysto 02/22/23- No problems or concern DX: Recurrent UTI, Pneumaturia, Adrenal Mass, Urinary Retention & Renal Cyst *Started on Estrace Cream at time of last encounter. As well as Cranberry pills. +C&S at time of last encounter >100,000 cfu/ml Klebsiella pneumoniae <10,000 cfu/ml Mixed skin contaminants Tx'd w/Cipro therapy. She states this worked well, but her urine is still cloudy B&BSQ 16 PVR 0 She could give a urine sample today Dysuria: denies Incomplete bladder emptying: as much as she can Hematuria: denies visible blood Frequency: every couple hours Urgency: sometimes Nocturia: denies Stream: yes hesitation, normal stream Leaking: sometimes Post void dripping: yes Wearing pads Depends: Depends wore daily changes couple times a day Urge incontinence: sometimes Stress incontinence: yes when coughing Incontinence without Sensory Awareness: yes Abdominal pain: denies Flank pain: denies Sexual complaints: denies History of Present Illness Tests reviewed: none. I have reviewed the previous health record information and history for this patient from . I have reviewed and verified the staff HPI to be accurate for this encounter. There have been no associated fever, chills, flank pain, or blood in the urine. Denies any urinary infections since last encounter. Review of Systems PHQ Score Initial Depression Screen Score: 0 SCORE ROS - Provider Constitutional: denies weight loss, denies hot flashes. Eyes: denies eye problems. Gastrointestinal: denies nausea, denies vomiting. Cardiovascular: denies chest pain or angina. Integumentary: no dryness Musculoskeletal: denies musculoskeletal symptoms. ENMT: denies otolaryngeal symptoms. Respiratory: no shortness of breath. Heme/Lymph: denies easy bleeding tendency, denies easy bruising tendency. Psychiatric: no confusion, no anxiety. Genitourinary: See HPI. Physical Exam Vitals & Measurements T: 36.1 ?C(Temporal Artery) HR: 74(Peripheral) BP: 124/86 HT: 60 in HT: 153 cm WT: 68.3 kg WT: 150.26 lb BMI: 29.18 General Appearance: alert , no acute distress, well nourished, well developed female. Genitourinary: bladder nonpalpable, no flank pain. Assessment/Plan 72 yo F prior DLS and GPC pt here for follow up from a cysto due to recurrent UTI's. Here with daughter who also serves as historian 1. Recurrent UTI (N39.0: Urinary tract infection, site not specified) pt started w Increased urgency, odor to urine, increased leaking saw PCP +C&S: 12/19/22 >100k Klebsiella pneumoniae (HH obtained sample), started on Wednesday w/Cephalexin 500mg BID x 10 days. +C&S: 10/04/23 >100,000 cfu/ml Klebsiella pneumoniae <10,000 cfu/ml Mixed skin contaminants Tx'd w/Cipro therapy. She states this worked well, but her urine is still cloudy Could not give a urine sample this morning S/p Cysto 02/22/23 - Difficult to view given cloudy urine, however no visible mucosal lesions concerning for fistula. Patient only thinks she passes gas with infection, unclear bladder vs vagina. No passage of stool. Suspect secondary to cystitis rather than fistula. Patient completed Cipro x3 days - sx including air improved. Repeat treatment for 1 week. Hx Cdiff with prolonged antibiotics of 2 weeks. Pt was to start OTC UTI supplements: cranberry and probiotics, Estrace cream, proper hygiene, avoid scented soaps, and change pads frequently. Pt states that she is using the Estrace cream 2x/week. Pt states that she had to get more abx in March, her urine is cloudy currently. Advised pt that the cloudiness is from not drinking enough water, but it is harder for her to drink more water due to being limited. Advised pt that if she were to continue getting infections we could discuss more options for treatment: methenamine vs suppressive abx, but she is to continue the Estrace cream and supplements from now on. Follow up in 3 mos with ANURADHA. All questions/concerns were discussed. Pt to call the office if she encounters any issues prior. Pt acknowledges understanding. -Continue Estrace cream. -cranberry and probiotics -bowel regimen 2. Pneumaturia (R39.89: Other symptoms and signs involving the genitourinary system) Has been passing gas from either vagina or urethra, denies stool in urine. Usually right before or after she voids. Pt has had a large bowel resection from incarcerated hernia in the past. Denies diverticulitis, crohns/UC or prior radiation. S/p Cysto 02/22/23 - Difficult to view given cloudy urine, however no visible mucosal lesions concerning for fistula. Patient only thinks she passes gas with infection, unclear bladder vs vagina. No passage of stool. Suspect secondary to cystitis rather than fistula. Patient completed Cipro x3 days - sx including air improved, gave repeat treatment for 1 week. Hx Cdiff with prolonged antibiotics of 2 weeks. Pt states that she has not had any more air when she voids. -likely due to (more content not included)... [facility] Comment on above: Result Comment: Elec tronically Signed By: Jacqui Michael MD\.br\Date and Time Signed: 04/28/23 10:55 EST\.br\Electronically Co-Signed By: Brisa Russell\.br\Date and Time Co-Signed: 04/28/23 10:25 EST Physician Referralon 023 Physician Referral [id number] 20 [id number] 0TIFF [facility] Physician Referralon 023 Physician Referral [id number] 20 [id number] 0TIFF [facility] Consent for Procedure/Surger yon 02-22-2023 Consent for Procedure/Surgery [id number]. 00TIFF [facility] Consent for Treatmenton 02-01 Consent for Treatment [id number] 0TIFF [facility] Inpatient Patient Summaryon 02-22-2023 Inpatient Patient Summary [place] [address] Clinical Summary Person Information Name: MARTIN HAGEN Age: 72 Years : 1950 Sex: Female PCP: SHAWN BARBER MD Marital Status: Race: White Ethnicity: Non- or Language: Belarusian Visit Id: Visit Reason: RECURRENT UTI Speciality: Acuity: Enc Type: Outpatient Med Service: Surgery Arrival: 02/22/2023 09:20:37 Discharge: Dispo Type: Address: [address] [place] [address] [phone] Provider Notes: Diagnosis: Emphysematous cystitis; Pneumaturia; Recurrent UTI Problems Active Recurrent UTI Incontinence without sensory awareness Emphysematous cystitis UTI (urinary tract infection) Urinary retention Pneumaturia Renal cyst Adrenal mass Microhematuria Renal mass Postinfective urethral stricture, not elsewhere classified, female Asymptomatic microscopic hematuria Acute cystitis Lower abdominal pain Dysphagia Loose stools History of colon polyps Chronic constipation with overflow Fatty liver Haddad's esophagus Constipation Colon polyps Gastroparesis Heartburn Personal history of colonic polyps Muscle spasm Psoriatic arthritis Arthritis Panic attacks Depression Diabetes Extreme obesity Smoking Status: Functional Status: Sensory Deficits: History of Falls: Mobility Assistance Prior to Admission: ADLs: Current Level of Assistance for Self-Care/Mobility: Cognitive Status: Allergies Bee Stings (Swelling of body region) Grapefruit (Unknown) Pineapple (Unknown) Aleve (AOF) Laboratory or Other Results This Visit (last charted value for your 02/22/2023 visit) No Laboratory or Other Results This Visit Measurements: Height: 153 cm Weight: Blood Pressure: Not Valued / Not Valued BMI: Procedures No Procedures Documented Immunizations No Immunizations Documented This Visit Final Med List: acetaminophen-hydrocod one (acetaminophen-hydroco done 325 mg-5 mg oral tablet) albuterol (Ventolin HFA 90 mcg/inh Aerosol) 2 Puffs Inhalation 4 times a day. alprazolam (alprazolam 1 mg Tab) apixaban (Eliquis 5 mg oral tablet) atorvastatin (atorvastatin 20 mg Tab) 1 Tablets By Mouth once a day (at bedtime). brexpiprazole (Rexulti 0.25 mg oral tablet) By Mouth every day. bumetanide (bumetanide 1 mg Tab) calcium-vitamin D (calcium (as carbonate)-vitamin D 90 mg-25 mcg (1000 intl units) oral tablet) ciprofloxacin (Cipro 500 mg Tab) 1 Tablets By Mouth every 12 hours for 7 Days. Refills: 0. cyclobenzaprine (cyclobenzaprine 10 mg Tab) dapagliflozin (Farxiga 10 mg oral tablet) dulaglutide (Trulicity Pen) 1.5 Milligram Subcutaneous every week. estradiol topical (Estrace 0.1 mg/g Cream) apply pea size amount to urethra/inner vagina 3x/week x 1 month, then 2x/week for maintainence. Refills: 3. fluoxetine 40 Milligram By Mouth every day. fluticasone-salmeterol (Advair 250 mcg-50 mcg Powder) 1 Puffs Inhalation 2 times a day. insulin isophane-insulin regular (Novolin 70/30 10 mL Susp-Inj) lisinopril (lisinopril 20 mg Tab) 1 Tablets By Mouth every day. loratadine (loratadine 10 mg Tab) magnesium oxide (magnesium oxide 400 mg Tab) metoclopramide (Reglan 10 mg Tab) 1 Tablets By Mouth four times a day (before meals and at bedtime). Refills: 0. metolazone (metolazone 2.5 mg Tab) metoprolol (Metoprolol tartrate 50 mg Tab) 1 Tablets By Mouth 2 times a day. omega-3 polyunsaturated fatty acids (Fish Oil) 1,000 Milligram By Mouth every day. omeprazole (omeprazole 40 mg Cap-DR) ondansetron (ondansetron 4 mg Tab) potassium chloride (Klor-Con M20) 20 Milliequivalent By Mouth 2 times a day. tizanidine (tizanidine 4 mg oral capsule) By Mouth 3 times a day. Care Team Members: Attending Physician: Jacqui Michael MD Consulting Physician: Referring Physician: Jacqui Michael MD Follow up: With: Address: When: Jacqui Michael [address] [place] [id number] [phone] Business (1) [address] [place] [phone] Business (1) Comments: Office to schedule follow up in 1 to 2 months Patient Education Information: EU - Cystoscopy Discharge Instructions (CUSTOM) [facility] IntraOperative Documentson 1 IntraOperative Documents [id number] 00TIFF [facility] Main OR Intraoperative Recor don 02-22-2023 Main OR Intraoperative Record IntraOp Document Type FTURO Summary Primary Physician: Jacqui Michael MD Finalized Date/Time: 02/22/23 10:39:48 Pt. Name: MARTIN HAGEN/Sex: 1950 Female Med Rec #: [id number] Physician: Jacqui Michael MD Financial #: [id number] Pt. Type: O Room/Bed: / Admit/Disch: 02/22/23 09:20:37 - Institution: Case Times FTURO Entry 1 Patient Times In Room 02/22/23 10:18:00 Out Room 02/22/23 10:35:00 Procedure Times Start 02/22/23 10:23:00 Stop 02/22/23 10:29:00 Anesthesia Times Last Modified By: Keisha Pride RN 02/22/23 10:35:59 Case Attendance FTURO Entry 1 Entry 2 Entry 3 Case Attendee Alec XIE, Jacqui Hampton MILK HOUSE WORKER, Keisha Moore RN Role Performed Surgeon - Primary Scrub - Primary Reservations Manager - Primary Time In 02/22/23 10:18:00 02/22/23 10:18:00 02/22/23 10:18:00 Time Out 02/22/23 10:35:00 02/22/23 10:35:00 02/22/23 10:35:00 Procedure CYSTOSCOPY LOCAL(.) CYSTOSCOPY LOCAL(.) CYSTOSCOPY LOCAL(.) Comments Last Modified By: Keisha Pride RN, RN, Kimberly Y Barbee RN, Kimberly Y 02/22/23 10:36:00 02/22/23 10:36:00 02/22/23 10:36:00 Surgical Procedures FTURO Entry 1 Procedure Description Procedure CYSTOSCOPY LOCAL Modifiers . Surgeon Description CYSTOSCOPY LOCAL Primary Procedure Yes Primary Surgeon Jacqui Michael MD Start 02/22/23 10:23:00 Stop 02/22/23 10:29:00 Anesthesia Type Local Surgical Service Urology Wound Class 2 - Clean-Contaminated Last Modified By: Keisha Pride RN 02/22/23 10:29:55 General Case Data FTURO Pre-Care Text: Classifies surgical wound, implements aseptic technique, initiates traffic control Entry 1 Case Information OR URO 1 FT Case Level None Wound Class 2 - Clean-Contaminated Specialty Urology Preop Diagnosis RECURRENT UTI Postop Same As Preop Yes Postop Diagnosis RECURRENT UTI Outcomes Met? Yes Last Modified By: Keisha Pride RN 02/22/23 10:14:27 Post-Care Text: The patient is free from signs and symptoms of infection EU IntraOp - FTURO Pre-Care Text: Implements protective measures prior to operative or invasive procedure, confirms identity before the operative or invasive procedure, verifies operative procedure, surgical site, and laterality Entry 1 EU Perioperative Protocols Procedure(s) CYSTOSCOPY LOCAL(.) Patient Identity Birthday, ID Band Verified (select at Check, Patient least 2): Participation Consents / H and P HandP, Surgery/Procedure Operative Site N/A Verified Consent Marking Verified Surgical Site Yes Laterality Verified Yes Verified Procedure Verified Yes Correct Patient Yes Position Verified Availability Equipment, Medication Time Out Jacqui Michael MD, Verified (If Participants Keisha Hampton CST Applicable) Shannen Mata RN, Kimberly Y Time Out Complete 02/22/23 10:20:00 Allergies Reviewed? Yes Allergies Reviewed Self/Patient With Body Position Frog Legged Prep Area PERINEUM Prep Agents Betadine Solution Skin. Condition Dry, Warm, Unable to Description UNABLE TO VISUALIZE DUE Visualize TO PATIENT PARTIALLY CLOTHED Additional None Specimens Collected Vitals - EU Blood Pressure 92/54 Pulse 69 bpm Respirations 20 br/min SPO2 99 % EBL 0 IandO - EU Total Intake 0 mL Total Output 0 mL Outcomes Met? Yes Last Modified By: Keisha Pride RN 02/22/23 10:20:24 Post-Care Text: The patient is free from signs and symptoms of injury caused by extraneous objects Sign Out FTURO Entry 1 Before Patient Leaves OR Nurse verbally Yes Nurse verbally Yes confirms with the confirms with the team the name of team that the procedure(s) instrument, sponge, recorded and needle counts are correct (or N/A) Nurse verbally n/a Nurse verbally Yes confirms with the confirms with the team how the team whether there specimen is labeled are any equipment (including patient problems to be name), if applicable addressed Sign Out Complete 02/22/23 10:29:00 Last Modified By: Keisha Pride RN 02/22/23 10:29:53 Case Comments Finalized By: Keisha Pride RN Document Signatures Signed By: Keisha Pride RN 02/22/23 10:39 Normal [facility] Main OR Preoperative Recordo n 02-22-2023 Main OR Preoperative Record Holding Area Document Type FTURO Summary Primary Physician: Jacqui [place] MD Finalized Date/Time: 02/22/23 10:13:17 Pt. Name: MARTIN HAGEN /Sex: 1950 Female Med Rec #: [id number] Physician: Jacqui [place] MD Financial #: [id number] Pt. Type: O Room/Bed: / Admit/Disch: 02/22/23 09:20:37 - Institution: Case Times Holding FTURO Pre-Care Text: Verifies consent for planned procedure, identifies individual values and wishes concerning care, includes family members in perioperative teaching Secures patient's records' belongings, and valuables, maintains patient's dignity and privacy, and maintains patient confidentiality Entry 1 In Holding 02/22/23 09:30:00 Outcomes Met? Yes Last Modified By: Becka Arredondo LPN 02/22/23 09:30:27 Post-Care Text: The patient participates in decisions affecting his or her perioperative plan of care The patient's right to privacy is maintained Surgery Checklist FTURO Entry 1 Patient Birthday, ID Band Procedure Surgical Consent, With Identification: Check, Patient Verification: Patient Participation NPO after Midnight: n/a Date/Time: 02/22/23 09:30:00 Personal Items: Dentures, Glasses, Personal Items upper and lower Jewelry Comment: dentures, glasses, watch, cane, portable oxygen tank Limitations: uses portable oxygen @ Complaints of Pain: Yes 2l/m per n/c, uses cane for ambulation, uses w/c for long distances, hard of hearing, wears hearing aids Pain Comment: chronic back pain Skin Integrity Intact, [place], Warm, & Dry Vitals - EU Blood Pressure 92/54 Pulse 69 bpm Respirations 20 br/min SPO2 99 % RN Reviewed Yes Last Modified By: Kesiha Pride RN 02/22/23 10:13:16 General Comments: Temp 36.6 Finalized By: Keisha Pride RN Document Signatures Signed By: Becka Arredondo LPN 02/22/23 09:34 Keisha Pride RN 02/22/23 10:13 [facility] Operative Reporton 3 Operative Report Patient: LAVELLE HAGEN Age: 72 years Sex: Female : 1950 Associated Diagnoses: None Author: Jacqui Michael MD Procedure Operative Information Details: Date/ Time: 02/22/2023 10:33:00. Pre-Op Dx: Emphysematous cystitis (QZE25-VK N30.80, Discharge, Medical), Pneumaturia (IXP56-BN R39.89, Discharge, Medical), Recurrent UTI (XZX00-UN N39.0, Discharge, Medical). Post-Op Dx: Same. Anesthesia Type: Local. Procedure: Local Cystoscopy. Complications: None. Risks/Benefits/Informe d Consent: Surgical risks, benefits, details of the procedure have been explained to the patient, Full informed consent has been obtained. Intraoperative Information Prepped: Patient is brought back to the endoscopy suite, Patient is placed in supine position, Patient prepped in the usual fashion with Betadine solution, 2% Xylocaine Jelly is placed per Urethra, After waiting several minutes the Cystoscope is introduced. The Urethra is: Normal. The Bladder is: Trabeculated Mild (1), Debris-filled urine. Mucosa appeared to be covered with white scales, easily sloughed off. No bladder tumors, lesions, stones or foreign bodies. No visible openings concerning for fistula. The ureteral orifices: Show efflux of clear urine. Devices Implanted: None. Removal: Cystoscope is removed, The patient tolerated it well. Vaginal examination: Vaginal mucosa: There is severe vaginal atrophy The urethra is patent, orthotopic. There are no masses or lesions. Mild urethral caruncle There is no urethral hypermobility and TAMEKA is not seen. She is unable to correctly identify her pelvic muscles. No significant anterior, apical or posterior prolapse. Non-tender pelvic floor muscles . Postoperative Information Discharge: Patient is discharged home with antibiotic coverage, Follow up arranged. Difficult to view given cloudy urine, however no visible mucosal lesions concerning for fistula. Patient only thinks she passes gas with infection, unclear bladder vs vagina. No passage of stool. Suspect secondary to cystitis rather than fistula. Patient completed Cipro x3 days - sx including air improved. Will give repeat treatment for 1 week. Hx Cdiff with prolonged antibiotics of 2 weeks. Patient did well on Cipro recently. -Continue cranberry pills, probiotics. Patient unable to take d-mannose due to diabetes. -Follow-up in 1 to 2 months.. [facility] Comment on above: Result Comment: Elec tronically Signed By: Jacqui Mihcael MD\.br\Date and Time Signed: 02/22/23 10:37 EDT Outpatient Surgery Discharge Instructionon 02-22-2023 Outpatient Surgery Discharge Instruction [place] [address] Patient Discharge Instructions PERSON INFORMATION Name: MARTIN HAGEN Date of : 1950 Current Date: 02/22/2023 10:33:14 PHYSICIANS Admitting Physician: Jacqui [place] MD Comment: Discharge Diagnosis: Emphysematous cystitis; Pneumaturia; Recurrent UTI MARTIN HAGEN has been given the following list of follow-up instructions, prescriptions, and patient education materials: IF UNABLE TO CONTACT YOUR PHYSICIAN AND YOU FEEL IT IS AN EMERGENCY, GO TO THE NEAREST EMERGENCY ROOM OR CALL 911 Follow up: With: Address: When: Jacqui Michael [address] [place] [phone] Business (1) [address] [place], [place] [phone] Business (1) Comments: Office to schedule follow up in 1 to 2 months Comment: PATIENT EDUCATION INFORMATION Instructions: Cystoscopy ? Voiding after the procedure: there may be some pain, burning, urgency, frequency and blood tinged urine following the procedure. These symptoms usually resolve within 2-5 days. Drink the amount of fluid it takes to keep the urine pink to yellow or clear in color. Drinking enough water and fluids will help to ease any discomfort after your procedure. ? If you are having problems that seem out of the ordinary, please call. ? If unable to contact your physician and you feel it is an emergency, go to the nearest emergency room or call 911 ? Diet ? you may resume your normal diet. ? Activity ? you may resume your normal activities ? Call if you have a fever over 100 degrees. I, MARTIN HAGEN, have received the attached patient education materials/instructions and have verbalized understanding: May we do a follow up call? Yes No I was present when discharge instructions were given Patient Signature Date Clinican/Nurse Signature ___ Date You may receive a survey from Manjit Sanders asking you to rate your care experience. Your feedback is important and will help us understand what we do well and how we can improve the quality of care we provide to you, your loved ones and our community. It?s an honor to serve you. Thank you for choosing [facility] Normal [facility] Lab Reportson 02-10-2023 Lab Reports [id number] 0TIFF Normal [facility] C Urineon 02-05-2023 Bacteria identified Cx Nom (U) Microbiology PROCEDURE: Urine Culture [R1] SOURCE: U CleanCatch BODY SITE: COLLECTED DATE/TIME: 02/03/2023 10:12 EDT RECEIVED DATE/TIME: 02/03/2023 19:48 EDT START DATE/TIME: 02/03/2023 19:48 EDT FREE TEXT SOURCE: Alec XIE, Jacqui [place] MD, Jacqui Nieves FINAL REPORTS Final Report [] Verified Date/Time: 02/05/2023 09:33 EDT >100,000 cfu/ml Klebsiella pneumoniae <10,000 cfu/ml Mixed skin contaminants SUSCEPTIBILITY RESULTS __ LEGEND: S=Susceptible, N/R=Not Reported, Blank=Data not available, or drug not advisable or tested, I=Intermediate, ESBL=Extended spectrum beta-lactamase, R=Resistant, TFG=Thymidine-dependen t strain, SHERICE=Beta-lactamase positive, GISSEL=mcg/m;(mg/L), S*=Predicted susceptible interp, R*=Predicted resistant interp Klepne Antibiotic GISSEL Dilutn GISSEL Interp Amikacin <=16 S Ampicillin >16 R Ampicillin/ <=8/4 S Sulbactam Aztreonam <=4 S Cefazolin <=2 S Cefepime <=2 S Cefoxitin <=8 S Ceftazidime <=1 S Ceftazidime/ <=8 S Avibactam Ceftriaxone <=1 S Ciprofloxacin <=1 S Ertapenem <=0.5 S Gentamicin <=4 S Levofloxacin <=2 S Meropenem <=1 S Nitrofurantoin 64 I Piperacillin/ <=16 S Tazobactam Tetracycline <=4 S Tigecycline <=2 S Tobramycin <=4 S Trimethoprim/ <=2/38 S Sulfa Performing Locations R1: This test was performed at: [facility], [address] [place] [address], [id number] , [place], Normal [facility] Comment on above: Performed By: #### [id number] ####[facility] [id number] [place] [address] Patient Educationon 02-04-20 23 Patient Education Obstetrics and Gynecology Urinary Tract Infection, Adult A urinary tract infection (UTI) is an infection of any part of the urinary tract. The urinary tract includes: ? The kidneys. ? The ureters. ? The bladder. ? The urethra. These organs make, store, and get rid of pee (urine) in the body. What are the causes? This infection is caused by germs (bacteria) in your genital area. These germs grow and cause swelling (inflammation) of your urinary tract. What increases the risk? The following factors may make you more likely to develop this condition: ? Using a small, thin tube (catheter) to drain pee. ? Not being able to control when you pee or poop (incontinence). ? Being female. If you are female, these things can increase the risk: ? Using these methods to prevent : ? A medicine that kills sperm (spermicide). ? A device that blocks sperm (diaphragm). ? Having low levels of a female hormone (estrogen). ? Being . You are more likely to develop this condition if: ? You have genes that add to your risk. ? You are sexually active. ? You take antibiotic medicines. ? You have trouble peeing because of: ? A prostate that is bigger than normal, if you are male. ? A blockage in the part of your body that drains pee from the bladder. ? A kidney stone. ? A nerve condition that affects your bladder. ? Not getting enough to drink. ? Not peeing often enough. ? You have other conditions, such as: ? Diabetes. ? A weak disease-fighting system (immune system). ? Sickle cell disease. ? Gout. ? Injury of the spine. What are the signs or symptoms? Symptoms of this condition include: ? Needing to pee right away. ? Peeing small amounts often. ? Pain or burning when peeing. ? Blood in the pee. ? Pee that smells bad or not like normal. ? Trouble peeing. ? Pee that is cloudy. ? Fluid coming from the vagina, if you are female. ? Pain in the belly or lower back. Other symptoms include: ? Vomiting. ? Not feeling hungry. ? Feeling mixed up (confused). This may be the first symptom in older adults. ? Being tired and grouchy (irritable). ? A fever. ? Watery poop (diarrhea). How is this treated? ? Taking antibiotic medicine. ? Taking other medicines. ? Drinking enough water. In some cases, you may need to see a specialist. Follow these instructions at home: Medicines ? Take tgjp-ibw-uzgqtds and prescription medicines only as told by your doctor. ? If you were prescribed an antibiotic medicine, take it as told by your doctor. Do not stop taking it even if you start to feel better. General instructions ? Make sure you: ? Pee until your bladder is empty. ? Do not hold pee for a long time. ? Empty your bladder after sex. ? Wipe from front to back after peeing or pooping if you are a female. Use each tissue one time when you wipe. ? Drink enough fluid to keep your pee pale yellow. ? Keep all follow-up visits. Contact a doctor if: ? You do not get better after 1?2 days. ? Your symptoms go away and then come back. Get help right away if: ? You have very bad back pain. ? You have very bad pain in your lower belly. ? You have a fever. ? You have chills. ? You feeling like you will vomit or you vomit. Summary ? A urinary tract infection (UTI) is an infection of any part of the urinary tract. ? This condition is caused by germs in your genital area. ? There are many risk factors for a UTI. ? Treatment includes antibiotic medicines. ? Drink enough fluid to keep your pee pale yellow. This information is not intended to replace advice given to you by your health care provider. Make sure you discuss any questions you have with your health care provider. Document Revised: 11/29/2020 Document Reviewed: 11/29/2020 [employer] Patient Education ? 2022 [employer]. [facility] 02-03-2023 Screens [id number]. 00CD:127 Normal [facility] Urology Office/Clinic Noteon 02-03-2023 Urology Office/Clinic Note Chief Complaint 6m HPI Staff 6m DX: Adrenal Mass, Urinary Retention & Renal Cyst (Per last encounter w/KML No further workup at this time given stability and metabolic workup wnl in reference to the Adrenal Mass) Pt has since then been seen in our office 12/29/22 by GEMMA due to UTI. Has been passing gas from either vagina or urethra. Usually right before she voids. Denies current pain/burning. Strong odor to urine. Dark. Cloudy. For the past week and a half. Leaking without sensation. Wears a pull up. Has been changing more frequently. Denies urgency. Denies Hx of UTI. History of Present Illness Tests reviewed: reviewed UA I have reviewed the previous health record information and history for this patient from Dr.Lue kael Vasquez I have reviewed and verified the staff HPI to be accurate for this encounter. There have been no associated fever, chills, flank pain, or blood in the urine. Review of Systems PHQ Score Initial Depression Screen Score: 0 ROS - Provider Constitutional: denies weight loss, denies hot flashes. Eyes: denies eye problems. Gastrointestinal: denies nausea, denies vomiting. Cardiovascular: denies chest pain or angina. Integumentary: no dryness Musculoskeletal: denies musculoskeletal symptoms. ENMT: denies otolaryngeal symptoms. Respiratory: no shortness of breath. Heme/Lymph: denies easy bleeding tendency, denies easy bruising tendency. Psychiatric: no confusion, no anxiety. Genitourinary: See HPI. Physical Exam Vitals & Measurements HR: 68(Peripheral) RR: 16 BP: 120/74 HT: 60 in HT: 153 cm WT: 68.3 kg WT: 150.26 lb BMI: 29.18 General Appearance: alert , no acute distress, well nourished, well developed female. On O2 via NC Genitourinary: bladder nonpalpable, no flank pain. Assessment/Plan 72 yo F prior DLS and GPC pt here for follow up of recurrent UTIs Here with daughter who also serves as historian BBS 18 1. Recurrent UTI (N39.0: Urinary tract infection, site not specified) pt started w Increased urgency, odor to urine, increased leaking saw PCP + culture: >100k Klebsiella pneumoniae (HH obtained sample), started on Wednesday w/Cephalexin 500mg BID x 10 days. UA today shows large leuks and small blood. Denies current pain/burning. Strong odor to urine. Dark. Cloudy, for the past week and a half, and increased urgency. Pt states that she voids every 2-3hrs. Pt states that she gets diarrhea everyday -followed by GI 10% of women over the age of 60 will have recurrent urinary tract infection - 2 or more urinary tract infection in 6 months or 3 or more per year. We discussed the presence of vaginal atrophy on physical examination. I explained the lack of estrogen secondary to menopause causes changes in the vaginal epithelium that can predispose to lower urinary tract symptoms, vaginal discomfort, urinary incontinence, dyspareunia, and recurrent urinary tract infections. Because of these changes to the vaginal tissues the lactobacilli (good bacteria) fail to thrive. The pH of the vagina rises making it easier for harmful bacteria to colonize the vagina. Advised pt to increase water intake. Pt states that she is on a water intake restriction. -Notify our office if patient gets another UTI. -Start OTC UTI supplements: cranberry and probiotics -Start Estrace cream 0.1 mg/g. Apply pea-sized amount around the opening of the urethra and surrounding tissue 3 times per week at night for one month then 2 times per week after for maintenance. SEs discussed. Rx sent to pharm on file. Pt to stop cream and notify office if she experiences breast tenderness and/or bleeding. -Proper hygiene, avoid scented soaps, change pads frequently -Will send UA for culture - call and change abx if resistant to cipro -Will send Cipro 500mg BID x3days. Discussed the medication side effects, and the patient will monitor closely for these, as well as for symptom improvement. If severe side effects occur, the medication should be stopped and the office notified. Holding tizanidine while on cipro -Will schedule cystoscopy per #2 2. Pneumaturia (R39.89: Other symptoms and signs involving the genitourinary system) Has been passing gas from either vagina or urethra, denies stool in urine. Usually right before or after she voids. Pt has had a large bowel resection from incarcerated hernia in the past. Denies diverticulitis, crohns/UC or prior radiation. Discussed workup including cysto and possible imaging pending results. Will schedule cysto. The risks and benefits for cystoscopy have been discussed. The risks include bleeding, infection, and irritation of the bladder and urinary channel, among others. The patient, after being informed of procedural details and after questions have been answered, wishes to proceed. Full informed consent has been obtained. Will order Local anesthesia. 3. Adrenal mass (E27.8: Other specified disorders of adrenal gland) Adrenal labs: Cortisol AM 06/15/22- 2.7 (6.2 (more content not included)... Normal [facility] Comment on above: Result Comment: Elec tronically Signed By: Jacqui Michael MD\.br\Date and Time Signed: 02/03/23 10:45 EDT\.br\Electronically Co-Signed By: Brisa Russell\.br\Date and Time Co-Signed: 02/03/23 10:02 EDT\.br\Electronically Co-Signed By: Brisa Russell\.br\Date and Time Co-Signed: 02/03/23 10:12 EDT [facility] 12-31-2022 Screens [id number] 0CD:127 Normal [facility] Ambulatory Visit Summaryon 0 12-29-2022 Ambulatory Visit Summary MARTIN HAGEN :1950 Visit Date:12/29/2022 Ambulatory Visit Instructions Your Diagnosis UTI (urinary tract infection) Pneumaturia Adrenal mass Urinary retention Renal cyst Your Care Team Attending Physician - DANN العلي, INES Berumen Primary Care Physician - SHAWN BARBER MD This Is Your Medications List Contact prescribing physician if questions or concerns acetaminophen-hydrocod one (acetaminophen-hydroco done 325 mg-5 mg oral tablet) albuterol (Ventolin HFA 90 mcg/inh Aerosol) apixaban (Eliquis 5 mg oral tablet) atorvastatin (atorvastatin 20 mg Tab) brexpiprazole (Rexulti 0.25 mg oral tablet) bumetanide (bumetanide 1 mg Tab) calcium-vitamin D (calcium (as carbonate)-vitamin D 90 mg-25 mcg (1000 intl units) oral tablet) cyclobenzaprine (cyclobenzaprine 10 mg Tab) dapagliflozin (Farxiga 10 mg oral tablet) dulaglutide (Trulicity Pen) fluoxetine fluticasone-salmeterol (Advair 250 mcg-50 mcg Powder) lisinopril (lisinopril 20 mg Tab) loratadine (loratadine 10 mg Tab) magnesium oxide (magnesium oxide 400 mg Tab) metoclopramide (Reglan 10 mg Tab) metolazone (metolazone 2.5 mg Tab) metoprolol (Metoprolol tartrate 50 mg Tab) omega-3 polyunsaturated fatty acids (Fish Oil) omeprazole (omeprazole 40 mg Cap-DR) ondansetron (ondansetron 4 mg Tab) potassium chloride (Klor-Con M20) tizanidine (tizanidine 4 mg oral capsule) Procedures Performed Cystoscopy (12/02/2020), Cholecystectomy, Colonoscopy, History of hernia repair, History of hysterectomy.. Discharge Vitals Heart Rate (Peripheral) 70 Respiratory Rate 16 Blood Pressure 132/70 Height 153 cm Height 60 in Weight 72 kg Weight 158.4 lb BMI 30.76 What to do next Scheduled Follow-Up Appointments Wednesday 9:00 AM EDT With: Jacqui Michael MD Where: [facility] Patient Educationon 12-30-19 23 Patient Education Obstetrics and Gynecology Urinary Tract Infection, Adult A urinary tract infection (UTI) is an infection of any part of the urinary tract. The urinary tract includes the kidneys, ureters, bladder, and urethra. These organs make, store, and get rid of urine in the body. An upper UTI affects the ureters and kidneys. A lower UTI affects the bladder and urethra. What are the causes? Most urinary tract infections are caused by bacteria in your genital area around your urethra, where urine leaves your body. These bacteria grow and cause inflammation of your urinary tract. What increases the risk? You are more likely to develop this condition if: ? You have a urinary catheter that stays in place. ? You are not able to control when you urinate or have a bowel movement (incontinence). ? You are female and you: ? Use a spermicide or diaphragm for control. ? Have low estrogen levels. ? Are . ? You have certain genes that increase your risk. ? You are sexually active. ? You take antibiotic medicines. ? You have a condition that causes your flow of urine to slow down, such as: ? An enlarged prostate, if you are male. ? Blockage in your urethra. ? A kidney stone. ? A nerve condition that affects your bladder control (neurogenic bladder). ? Not getting enough to drink, or not urinating often. ? You have certain medical conditions, such as: ? Diabetes. ? A weak disease-fighting system (immunesystem). ? Sickle cell disease. ? Gout. ? Spinal cord injury. What are the signs or symptoms? Symptoms of this condition include: ? Needing to urinate right away (urgency). ? Frequent urination. This may include small amounts of urine each time you urinate. ? Pain or burning with urination. ? Blood in the urine. ? Urine that smells bad or unusual. ? Trouble urinating. ? Cloudy urine. ? Vaginal discharge, if you are female. ? Pain in the abdomen or the lower back. You may also have: ? Vomiting or a decreased appetite. ? Confusion. ? Irritability or tiredness. ? A fever or chills. ? Diarrhea. The first symptom in older adults may be confusion. In some cases, they may not have any symptoms until the infection has worsened. How is this diagnosed? This condition is diagnosed based on your medical history and a physical exam. You may also have other tests, including: ? Urine tests. ? Blood tests. ? Tests for STIs (sexually transmitted infections). If you have had more than one UTI, a cystoscopy or imaging studies may be done to determine the cause of the infections. How is this treated? Treatment for this condition includes: ? Antibiotic medicine. ? Dttv-nix-hrgkrxl medicines to treat discomfort. ? Drinking enough water to stay hydrated. If you have frequent infections or have other conditions such as a kidney stone, you may need to see a health care provider who specializes in the urinary tract (urologist). In rare cases, urinary tract infections can cause sepsis. Sepsis is a life-threatening condition that occurs when the body responds to an infection. Sepsis is treated in the hospital with IV antibiotics, fluids, and other medicines. Follow these instructions at home: Medicines ? Take zqlw-krt-rokapqs and prescription medicines only as told by your health care provider. ? If you were prescribed an antibiotic medicine, take it as told by your health care provider. Do not stop using the antibiotic even if you start to feel better. General instructions ? Make sure you: ? Empty your bladder often and completely. Do not hold urine for long periods of time. ? Empty your bladder after sex. ? Wipe from front to back after urinating or having a bowel movement if you are female. Use each tissue only one time when you wipe. ? Drink enough fluid to keep your urine pale yellow. ? Keep all follow-up visits. This is important. Contact a health care provider if: ? Your symptoms do not get better after 1?2 days. ? Your symptoms go away and then return. Get help right away if: ? You have severe pain in your back or your lower abdomen. ? You have a fever or chills. ? You have nausea or vomiting. Summary ? A urinary tract infection (UTI) is an infection of any part of the urinary tract, which includes the kidneys, ureters, bladder, and urethra. ? Most urinary tract infections are caused by bacteria in your genital area. ? Treatment for this condition often includes antibiotic medicines. ? If you were prescribed an antibiotic medicine, take it as told by your health care provider. Do not stop using the antibiotic even if you start to feel better. ? Keep all follow-up visits. This is important. This information is not intended to replace advice given to you by your health care provider. Make sure you discuss any questions you have with your health care provider. Document Revised: 11/29/2020 Document Revie (more content not included)... Normal [facility] Urology Office/Clinic Noteon 12-29-2022 Urology Office/Clinic Note Chief Complaint UTI HPI Staff KML pt. Last seen in our office by KML 07/29/22 due to Adrenal Mass, Urinary Retention, and Renal Cyst. Has 6 mos f/u appt w/JAZMYN on 02/03/23. Pt is here today due to recent UTI BMP 11/24/22 *BUN 35.0 & Crea 1.83 +UACS 12/19/22 >100k Klebsiella pneumoniae Tx'd w/Cephalexin 500mg BID [id number] Pt just started taking on Wednesday. Increased urgency. Odor to urine. Increased leaking. Home Health Nurse took sample to [facility]. Pt states she had air in bladder. Feels like a urethra fart after voiding. Denies pain/burning and visible blood in urine. Intermittent leaking has been ongoing. Usually on way to bathroom if she hasn't voided recently. Has tried timed voiding. q1hr. PVR 45ml History of Present Illness staff HPI reviewed and agree. Review of Systems PHQ Score Initial Depression Screen Score: 0 no fever, chills, malaise, myalgia. no rash/lesions. no chest pain, palpitations, or SOB. no abdominal pain, nausea, vomiting. no unilateral calf swelling, redness, pain Physical Exam Vitals & Measurements HR: 70(Peripheral) RR: 16 BP: 132/70 HT: 60 in HT: 153 cm WT: 72 kg WT: 158.4 lb BMI: 30.76 General: nontoxic, NAD Mouth: moist mucosa Lungs: normal respiratory effort Cardio: regular rate, good distal perfusion Abdomen: nondistended, no suprapubic distention or tenderness, no CVA tenderness Neurologic: Grossly normal Skin: No rashes or suspicious lesions Assessment/Plan KM patient, present with daughter. BBSQ - 21 1. UTI (urinary tract infection) (N39.0: Urinary tract infection, site not specified) pt started w Increased urgency, odor to urine, increased leaking. saw PCP + culture: 12/19/22 >100k Klebsiella pneumoniae (HH obtained sample) Just started on Wednesday w/Cephalexin 500mg BID x 10 days. States she has noticed an improvement in sxs. Denies pain/burning and visible blood in urine. Daughter states she had a UTI in October. -Notify our office if patient gets another UTI this year -Increase water intake -Proper hygiene, avoid scented soaps, change pads frequently keep previously Scheduled appointment w/ KML 01/2023. 2. Pneumaturia (R39.89: Other symptoms and signs involving the genitourinary system) Patient states she had air in bladder, noticed foam in urine. denies strong odor. denies particles or stool in urine. denies frequent UTI. has only had 2 in the last year, prior to that very rare. Call our office if it does not resolve. 3. Adrenal mass (E27.8: Other specified disorders of adrenal gland) Adrenal labs: Cortisol AM 06/15/22- 2.7 (6.2-19.4), Aldosterone/Renin Ratio 06/15/22- 12.0 (0.0-30.0), Normetanephrine 06/15/22-67.2 (0.0-285.2), Metanephrine 06/15/22- 16.5 (0.0-88.0) CT AP w/wo con done 01/09/21 shows stable adrenal mass on right side at 4.2 cm and Left side 2.[address] AP wo con done 05/05/22 shows stable 4.3 x 3.5 cm slightly heterogenous right adrenal mass with a few tiny areas of fat density suggestive of a benign adenoma. Stable left adrenal mass 2.5 x 1.9 cm without appreciable fat density. -No further workup at this time given stability and metabolic workup wnl Ordered: [id number] Measure Post Void residual urine and/or bladder capacity by US- non-imaging 4. Urinary retention (R33.9: Retention of urine, unspecified) Hx of UR PVR today 45 ml -No current issues w/ urination 5. Renal cyst (N28.1: Cyst of kidney, acquired) CT AP w/wo con done 01/09/21 shows 2.3 cm complex hyperdense cyst versus mass in the inferior pole of the right kidney. CT AP wo con done 05/05/22 shows 2.6 cm round, nonenhancing complex cyst versus mass projecting laterally from inferior pole of right kidney, 0.8 cm cyst projecting laterally from mid body of left kidney. 05/05/22: Crea 1.49, eGFR 34. 11/24/22: Crea 1.83, eGFR 27 -Does not warrant further imaging Follow-up With When Contact Information Alec XIE, Jacqui Nieves, URL, URO Additional Instructions: KML appt 01/2023 Patient Education Urinary Tract Infection, Adult Documentation recorded by the scribata Ramirez accurately reflects the services(s) I performed and decisions made by me. Authenticated by Ines Welch PA-C on 12/29/2022 15:25:06. I, Danielle Ramirez, personally scribed for Ines Welch PA-C on 12/29/2022 15:04:54. . Problem List/Past Medical History Ongoing Acute cystitis Adrenal mass Arthritis Asymptomatic microscopic hematuria Haddad's esophagus Chronic constipation with overflow Colon polyps Constipation Depression Diabetes Dysphagia Emphysematous cystitis Extreme obesity Fatty liver Gastroparesis Heartburn History of colon polyps Loose stools Lower abdominal pain Microhematuria Muscle spasm Panic attacks Personal history of colonic polyps Pneumaturia Postinfective urethral stricture, not elsewhere classified, female Psoriatic arthrit (more content not included)... Normal [facility] Comment on above: Result Comment: Elec tronically Signed By: DANN العلي, INES Berumen\.br\Date and Time Signed: 12/29/22 15:25 EDT\.br\Electronically Co-Signed By: Danielle Ramirez\.br\Date and Time Co-Signed: 12/29/22 15:05 EDT Office Visit (Cardiology)on 12-28-2022 Follow-up visit Diagnoses/Problems Assessed Paroxysmal atrial fibrillation (427.31) (I48.0) Anticoagulated (V58.61) (Z79.01) Echocardiogram abnormal (793.2) (R93.1) Aortic stenosis, moderate (424.1) (I35.0) Type 2 diabetes mellitus (250.00) (E11.9) Moderate episode of recurrent major depressive disorder (296.32) (F33.1) Current smoker (305.1) (F17.200) 1/2 ppd Since 23 y/o 'working on quitting' reducing one per day Overweight with body mass index (BMI) of 29 to 29.9 in adult (278.02,V85.25) (E66.3,Z68.29) Pulmonary hypertension, moderate to severe (416.8) (I27.20) Hypotension (458.9) (I95.9) asymptomatic Orders Moderate episode of recurrent major depressive disorder PHQ2 Screen Positive; Status:Complete; Done: [id number] Overweight with body mass index (BMI) of 29 to 29.9 in adult Healthy Weight Tips; Status:Complete; Done: [id number] SocHx: Current smoker Tobacco Use Screening; Status:Complete; Done: [id number] You need to stop smoking. Though it is not easy, more than half of all adult smokers have quit. We encourage you to write down all the reasons you should quit smoking and set a quit date for yourself. Ask us how we can help. You may also call 7-621-HRDO-NOW for free resources and assistance.; Status:Complete; Done: [id number] Tobacco Use Screening; Status:Complete; Done: [id number] Patient Instructions Please bring all medicines, vitamins, and herbal supplements with you when you come to the office. Prescriptions will not be filled unless you are compliant with your follow up appointments or have a follow up appointment scheduled as per instruction of your physician. Refills should be requested at the time of your visit. PLAN: Through informed decision making process incorporating patients unique circumstances, the following treatment plan will be initiated: 1. Prescription drug management of cardiovascular medication for efficacy, adherence to treatment, side effect assessment and polypharmacy. Current treatment clinically warranted and to continue without modifications. 2. Records from [facility] 3. Return for follow-up; in the interim, contact the office if new symptoms arise. Dr. Arriaga 4 months Chief Complaint Hospital f/u: 'doing ok' MARTIN HAGEN is being seen for follow-up of a hospitalization for dyspnea. Patient presents to the office in a wheelchair, utilizing oxygen and is accompanied by family member. This is initial in clinic follow-up at [facility]. She has previously been managed by [facility] since approximately 2021. Both she and family member are extremely difficult historian but from what I gather paroxysmal atrial fibrillation was diagnosed in early 2021; no prior antiarrhythmic. Reports prior stress testing but no cardiac catheterization. Has aortic stenosis 'that is being monitored' with repeat echocardiogram and cardiology follow-up towards the end of October 2022 (after hospital discharge). They are requesting to establish cardiology follow-up with [facility]. October 2022 hospitalized at [facility] due to shortness of breath, seen in consultation by Dr. Jean. Echocardiogram at that time showed moderate aortic stenosis peak 46, mean 26. She was diuresed and some documentation that she was to follow-up with nephrology (not completed to date). [facility] but is currently back home. Reportedly has been utilizing oxygen since the 2021 hospitalization for COVID. Denies any routine pulmonary follow-up. She is very sedentary due to overall functional debility, baseline functional class III shortness of breath. Reportedly does light chair exercises at home. She is able to walk through her house using the chairs for help . She sleeps in a hospital bed with the head of bed at 45 degrees. On current diuretic regimen she reports lower extremity edema is good now but prior hospitalizations have been triggered due to lower extremity edema. Metolazone was a new medication at discharge. They report having lab work last month. There is no evidence of effective arterial volume depletion. Her euvolemic weight at home is approximately 146 pounds. In regards to atrial fibrillation, the daughter believes it was diagnosed during one of the hospitalization. Patient remains a very difficult historian. On exam has regular rate and rhythm. She denies any type of palpitations. She does monitor her heart rate pretty regularly with a pulse ox machine and has not noted any elevated heart rates. In regards to moderate aortic stenosis: She denies any type of dizziness or lightheadedness. No prior syncopal episodes. There is no evidence of exertional symptoms consistent with angina. Shortness of breath is more so due to deconditioning and underlying pulmonary disease. Educated on symptoms to report. Her blood pressure in the office today is recorded is 80/44. She reports this is very unusual for her. The daughter does follow on a regular basis (more content not included)... Normal [place] Tobacco Screening.on 023 Adult depression screening assessment Yes [facility] [employer] 250 DO Work Phone: Adult depression screening assessment Moderate (10-14) [facility] [employer] 250 DO Work Phone: Fall risk assessment a) No falls within the last year [facility] [employer] 250 DO Work Phone: Tobacco use status [facility] a) Yes [facility] [employer] 250 DO Work Phone: Tobacco Screening. Yes [facility] [employer] 250 DO Work Phone: Tobacco Screening. 1-Several days [facility] [employer] 250 DO Work Phone: Tobacco Screening. 3-Nearly every day -[facility] Work Phone: Tobacco Screening. 0-Not at all -[facility] 250 DO Work Phone: Tobacco Screening. Somewhat Difficult -[facility] 250 DO Work Phone: Basic Metabolic Panelon -2 Anion gap [Moles/Vol] Not performed Normal 6.0-15.0 [facility] Comment on above: Performed By: #### B MP, MG, FE and TIBC, AFSANEH, CBC #### [facility] [address] Calcium [Mass/Vol] 9.4 mg/dL Normal 8.6-10.3 [facility] Comment on above: Performed By: #### B MP, MG, FE and TIBC, AFSANEH, CBC #### [facility] [address] Chloride [Moles/Vol] 92 mmol/L Low 98-107 [facility] Comment on above: Performed By: #### B MP, MG, FE and TIBC, AFSANEH, CBC #### [address] CO2 [Moles/Vol] mmol/L High 21.0-31.0 [facility] Comment on above: Performed By: #### B MP, MG, FE and TIBC, AFSANEH, CBC #### [facility] [address] Creatinine [Mass/Vol] 1.54 mg/dL High 0.60-1.20 [facility] Comment on above: Performed By: #### B MP, MG, FE and TIBC, AFSANEH, CBC #### [address] Creatinine Clr Calc Pharmacy 29.80 Normal [facility] Comment on above: Result Comment: PERF ORMED BY: [place] [address] PATHOLOGIST FIELD PIPELIN[employer] SUPERVISOR KOBE VENCES M.D. Performed By: #### B MP, MG, FE and TIBC, AFSANEH, CBC #### [facility] [address] [place] [address] [place] GFR/1.73 sq M.predicted MDRD (S/P/Bld) [Vol rate/Area] 35.431 mL/min/{1.73_m2} Normal [facility] Comment on above: Performed By: #### B MP, MG, FE and TIBC, AFSANEH, CBC #### [facility] [address] Glucose [Mass/Vol] 95 mg/dL Normal 70-100 [facility] Comment on above: Result Comment: [facility] Glucose Reference Range is dependent on time and content of last meal. Glucose of more than 200 mg/dL in a nonstressed, ambulatory subject supports the diagnosis of Diabetes Mellitus. ADA recommended reference range Performed By: #### B MP, MG, FE and TIBC, AFSANEH, CBC #### [facility] [address] Potassium [Moles/Vol] 4.6 mmol/L Normal 3.5-5.1 [facility] Comment on above: Performed By: #### B MP, MG, FE and TIBC, AFSANEH, CBC #### [facility] [address] Sodium [Moles/Vol] 141 mmol/L Normal 136-145 [facility] Comment on above: Performed By: #### B MP, MG, FE and TIBC, AFSANEH, CBC #### [facility] [address] [place] [address] [place] Urea nitrogen [Mass/Vol] 35 mg/dL High 7-25 [facility] Comment on above: Performed By: #### B MP, MG, FE and TIBC, AFSANEH, CBC #### [facility] [address] [place] [address] [place] Basophils Auto (Bld) [#/Vol] Ordered By: Gina Poole on 11-21-2022 Basophils (Bld) [#/Vol] 0.0 10*3/uL 0.0-0.2 [facility] Basophils/100 WBC Auto (Bld) Ordered By: Gina Poole on 11-21-2022 Basophils/100 WBC (Bld) 0.3 % . [facility] Calcium [Mass/volume] in Ser um or PlasmaOrdered By: Gina Poole on 11-21-2022 Calcium [Mass/Vol] 9.4 mg/dL 8.6-10.3 [facility] Carbon dioxide, total [Moles /volume] in Serum or PlasmaOrdered By: Gina Poole on 11-21-2022 CO2 [Moles/Vol] mmol/L 21.0-31.0 [facility] Chloride [Moles/volume] in S arti or PlasmaOrdered By: Gina Poole on 11-21-2022 Chloride [Moles/Vol] 92 mmol/L 98-107 [facility] Complete Blood Count Auto Di ffon 11-21-2022 Basophils (Bld) [#/Vol] 0.0 10*3/uL Normal 0.0-0.2 [facility] Comment on above: Result Comment: PERF ORMED BY: [place] [address] PATHOLOGIST FIELD PIPEL[employer] SUPERVISOR KOBE VENCES M.D. Performed By: #### B MP, MG, FE and TIBC, AFSANEH, CBC #### [facility] [address] [place] [address] [place] Basophils/100 WBC (Bld) 0.3 % Normal . [facility] Comment on above: Performed By: #### B MP, MG, FE and TIBC, AFSANEH, CBC #### [facility] [address] [place] [address] [place] Eosinophils (Bld) [#/Vol] 0.2 10*3/uL Normal 0.0-0.45 [facility] Comment on above: Performed By: #### B MP, MG, FE and TIBC, AFSANEH, CBC #### [facility] [address] [place] [address] [place] Eosinophils/100 WBC (Bld) 2.7 % Normal . [facility] Comment on above: Performed By: #### B MP, MG, FE and TIBC, AFSANEH, CBC #### [address] Erythrocyte distribution width (RBC) [Ratio] 15.2 % Normal 11.9-15.3 [facility] Comment on above: Performed By: #### B MP, MG, FE and TIBC, AFSANEH, CBC #### [address] Hematocrit (Bld) [Volume fraction] 24.7 % Low 34.0-46.4 [facility] Comment on above: Performed By: #### B MP, MG, FE and TIBC, AFSANEH, CBC #### [address] Hemoglobin (Bld) [Mass/Vol] 8.0 g/dL Low 11.8-15.4 [facility] Comment on above: Performed By: #### B MP, MG, FE and TIBC, AFSANEH, CBC #### [address] Lymphocytes (Bld) [#/Vol] 1.1 10*3/uL Normal 1.00-4.8 [facility] Comment on above: Performed By: #### B MP, MG, FE and TIBC, AFSANEH, CBC #### [address] Lymphocytes/100 WBC (Bld) 18.9 % Normal . [facility] Comment on above: Performed By: #### B MP, MG, FE and TIBC, AFSANEH, CBC #### [address] MCH (RBC) [Entitic mass] 29.0 pg Normal 24.7-34.3 [facility] Comment on above: Performed By: #### B MP, MG, FE and TIBC, AFSANEH, CBC #### [address] MCV (RBC) [Entitic vol] 89.8 fL Normal 80-100 [facility] Comment on above: Performed By: #### B MP, MG, FE and TIBC, AFSANEH, CBC #### [address] Mean Corpuscular HGB Conc 32.3 g/dL Normal 32.0-35.0 [facility] Comment on above: Performed By: #### B MP, MG, FE and TIBC, AFSANEH, CBC #### [address] Monocytes (Bld) [#/Vol] 0.4 10*3/uL Normal 0.0-0.8 [facility] Comment on above: Performed By: #### B MP, MG, FE and TIBC, AFSANEH, CBC #### [address] Monocytes/100 WBC (Bld) 7.3 % Normal . [facility] Comment on above: Performed By: #### B MP, MG, FE and TIBC, AFSANEH, CBC #### [address] Neutrophils (Bld) [#/Vol] 4.1 10*3/uL Normal 1.8-7.7 [facility] Comment on above: Performed By: #### B MP, MG, FE and TIBC, AFSANEH, CBC #### [address] Neutrophils/100 WBC (Bld) 70.8 % Normal . [facility] Comment on above: Performed By: #### B MP, MG, FE and TIBC, AFSANEH, CBC #### [address] NRBC% 0.1 /100{WBC} Normal 0-0.5 [facility] Comment on above: Performed By: #### B MP, MG, FE and TIBC, AFSANEH, CBC #### [address] Platelet mean volume (Bld) [Entitic vol] 7.8 fL Normal 6.3-10.7 [facility] Comment on above: Performed By: #### B MP, MG, FE and TIBC, AFSANEH, CBC #### [facility] [address] Platelets (Bld) [#/Vol] 132 10*3/uL Low 150-450 [facility] Comment on above: Performed By: #### B MP, MG, FE and TIBC, AFSANEH, CBC #### [facility] [address] RBC (Bld) [#/Vol] 2.75 10*6/uL Low 3.60-5.00 [facility] Comment on above: Performed By: #### B MP, MG, FE and TIBC, AFSANEH, CBC #### [facility] [address] WBC (Bld) [#/Vol] 5.7 10*3/uL Normal 3.8-11.6 [facility] Comment on above: Performed By: #### B MP, MG, FE and TIBC, AFSANEH, CBC #### [facility] [address] Creatinine [Mass/volume] in Serum or PlasmaOrdered By: Gina Poole on 11-21-2022 Creatinine [Mass/Vol] 1.54 mg/dL 0.60-1.20 [facility] Eosinophils Auto (Bld) [#/Vo l]Ordered By: Gina Poloe on 11-21-2022 Eosinophils (Bld) [#/Vol] 0.2 10*3/uL 0.0-0.45 [facility] Eosinophils/100 WBC Auto (Bl d)Ordered By: Gina Poole on 11-21-2022 Eosinophils/100 WBC (Bld) 2.7 % . [facility] Erythrocyte distribution wid th Auto (RBC) [Ratio]Ordered By: Gina Poole on 11-21-2022 Erythrocyte distribution width (RBC) [Ratio] 15.2 % 11.9-15.3 [facility] Glucose Glucometer (BldC) [M ass/Vol]Ordered By: Gina Poole on 11-21-2022 Glucose [Mass/Vol] 149 mg/dL [facility] Comment on above: Random Glucose Refer ence Range is dependent on time and content of last meal. Glucose of more than 200 mg/dL in a nonstressed, ambulatory subject supports the diagnosis of Diabetes Mellitus. Glucose Poct Glucometerson 0 11-21-2022 Glucose [Mass/Vol] 149 mg/dL Normal [facility] Comment on above: Result Comment: [place] Glucose Reference Range is dependent on time and content of last meal. Glucose of more than 200 mg/dL in a nonstressed, ambulatory subject supports the diagnosis of Diabetes Mellitus. PERFORMED BY: [place] [address] PATHOLOGIST FIELD PIPELINES SUPERVISOR KOBE VENCES M.D. Performed By: #### B MP, MG, FE and TIBC, AFSANEH, CBC #### [facility] [address] [place] [address] Glucose [Mass/Vol] 118 mg/dL Normal [facility] Comment on above: Result Comment: [place] [facility] Glucose Reference Range is dependent on time and content of last meal. Glucose of more than 200 mg/dL in a nonstressed, ambulatory subject supports the diagnosis of Diabetes Mellitus. PERFORMED BY: [place] [address] PATHOLOGIST FIELD PIPELINES SUPERVISOR KOBE VENCES M.D. Performed By: #### B MP, MG, FE and TIBC, AFSANEH, CBC #### [facility] [address] [place] [address] Glucose [Mass/volume] in Ser um or PlasmaOrdered By: Gina Poole on 11-21-2022 Glucose [Mass/Vol] 95 mg/dL 70-100 [facility] Comment on above: ADA recommended refe rence rangeRandom Glucose Reference Range is dependent on time and content of last meal. Glucose of more than 200 mg/dL in a nonstressed, ambulatory subject supports the diagnosis of Diabetes Mellitus. Hematocrit Auto (Bld) [Volum e fraction]Ordered By: Gina Poole on 11-21-2022 Hematocrit (Bld) [Volume fraction] 24.7 % 34.0-46.4 [facility] Hemoglobin [Mass/volume] in BloodOrdered By: Gina Poole on 11-21-2022 Hemoglobin (Bld) [Mass/Vol] 8.0 g/dL 11.8-15.4 [facility] Leukocytes [#/volume] correc loan for nucleated erythrocytes in Blood by Automated counOrdered By: Gina Poole on 11-21-2022 WBC corrected for nucl RBC Auto (Bld) [#/Vol] 5.7 10*3/uL 3.8-11.6 [facility] Lymphocytes Auto (Bld) [#/Vo l]Ordered By: Gina Poole on 11-21-2022 Lymphocytes (Bld) [#/Vol] 1.1 10*3/uL 1.00-4.8 [facility] Lymphocytes/100 WBC Auto (Bl d)Ordered By: Gina Poole on 11-21-2022 Lymphocytes/100 WBC (Bld) 18.9 % . [facility] MCH Auto (RBC) [Entitic mass ]Ordered By: Gina Poole on 11-21-2022 MCH (RBC) [Entitic mass] 29.0 pg 24.7-34.3 [facility] MCHC Auto (RBC) [Mass/Vol]Or dered By: Gina Poole on 11-21-2022 MCHC (RBC) [Mass/Vol] 32.3 g/dL 32.0-35.0 [facility] MCV Auto (RBC) [Entitic vol] Ordered By: Gina Poole on 11-21-2022 MCV (RBC) [Entitic vol] 89.8 fL 80-100 [facility] Monocytes Auto (Bld) [#/Vol] Ordered By: Gina Poole on 11-21-2022 Monocytes (Bld) [#/Vol] 0.4 10*3/uL 0.0-0.8 [facility] Monocytes/100 WBC Auto (Bld) Ordered By: Gina Poole on 11-21-2022 Monocytes/100 WBC (Bld) 7.3 % . [facility] Neutrophils Auto (Bld) [#/Vo l]Ordered By: Gina Poole on 11-21-2022 Neutrophils (Bld) [#/Vol] 4.1 10*3/uL 1.8-7.7 [facility] Neutrophils/100 WBC Auto (Bl d)Ordered By: Gina Poole on 11-21-2022 Neutrophils/100 WBC (Bld) 70.8 % . [facility] No Panel InformationOrdered By: Gina Poole on 11-21-2022 Estimated GFR (CKD-EPI) 35.431 mL/Min [facility] Creatinine Clearance (Chem 29.80 [facility] Nucleated erythrocytes [Pres ence] in Blood by Automated countOrdered By: Gina Poole on 11-21-2022 Nucleated RBC Auto Ql (Bld) 0.1 /100{WBC} 0-0.5 [facility] Platelet mean volume Auto (B ld) [Entitic vol]Ordered By: Gina Poole on 11-21-2022 Platelet mean volume (Bld) [Entitic vol] 7.8 fL 6.3-10.7 [facility] Platelets Auto (Bld) [#/Vol] Ordered By: Gina Poole on 11-21-2022 Platelets (Bld) [#/Vol] 132 10*3/uL 150-450 [facility] Potassium [Moles/volume] in Serum or PlasmaOrdered By: Gina Poole on 11-21-2022 Potassium [Moles/Vol] 4.6 mmol/L 3.5-5.1 [facility] RBC Auto (Bld) [#/Vol]Ordere d By: Gina Poole on 11-21-2022 RBC (Bld) [#/Vol] 2.75 10*6/uL 3.60-5.00 [facility] Serum or plasma anion gap de terminationOrdered By: Gina Poole on 11-21-2022 Anion gap [Moles/Vol] TNP [facility] Comment on above: Test not performed Sodium [Moles/volume] in Ser um or PlasmaOrdered By: Gina Poole on 11-21-2022 Sodium [Moles/Vol] 141 mmol/L 136-145 [facility] Urea nitrogen [Mass/volume] in Serum or PlasmaOrdered By: Gina Poole on 11-21-2022 Urea nitrogen [Mass/Vol] 35 mg/dL 7-25 [facility] WBC Auto (Bld) [#/Vol]Ordere d By: Gina Poole on 11-21-2022 WBC (Bld) [#/Vol] 5.7 10*3/uL 3.8-11.6 [facility] XR chest 2V*on 11-21-2022 XR chest 2V* [facility] [place] [address] XRay Report Signed Patient: Martin Hagen MR#: [id number] 52 : 1950 Acct:[id number] Age/Sex: 71 / F ADM Date: 11/18/22 Loc: Room: [address] [place] [address] Type: ADM IN Attending Dr: Gina Poole DO Copies to: DO Rey Pisano MD Ordering Provider: Rey Arriaga MD Date of Service: 11/21/22 XR/XR chest 2V*: shortness of breath XR chest 2V* 11/20/2022 1:00 PM SIGNS AND SYMPTOMS: shortness of breath PROTOCOL: Frontal and lateral radiographs of the chest COMPARISON: 11/18/2022 FINDINGS: The trachea is midline. There is cardiomegaly. There is perihilar vascular prominence and interstitial prominence. Pleural-parenchymal opacities are present in the lung bases. Degenerative changes are present in the shoulders and thoracic spine. Findings also suggest a remote posttraumatic deformity of the left proximal humerus. XR/XR chest 2V* IMPRESSION: Findings suggest congestive heart failure. Impression dictated by: Candace Godfrey M.D.11/21/2022 9:26 AM Dictation Location: [place] [address] Transcribed By: [facility] 11/21/22925 Dictated By: Candace Godfrey II, MD 11/21/22923 Signed By: 11/21/22925 [facility] Basic Metabolic Panelon 11-01 Anion gap [Moles/Vol] 7.5 mmol/L Normal 6.0-15.0 [facility] Comment on above: Performed By: #### C BC, BMP #### [facility] [address] Calcium [Mass/Vol] 8.7 mg/dL Normal 8.6-10.3 [facility] Comment on above: Performed By: #### C BC, BMP #### [facility] [address] [place] [address] [place] Chloride [Moles/Vol] 99 mmol/L Normal 98-107 [facility] Comment on above: Performed By: #### C BC, BMP #### [facility] [address] CO2 [Moles/Vol] 42.2 mmol/L High 21.0-31.0 [facility] Comment on above: Performed By: #### C BC, BMP #### [facility] [address] Creatinine [Mass/Vol] 1.73 mg/dL High 0.60-1.20 [facility] Comment on above: Performed By: #### C BC, BMP #### [place] [address] [place] Creatinine Clr Calc Pharmacy 26.49 [facility] Comment on above: Result Comment: PERF ORMED BY: [place] [address] PATHOLOGIST FI[employer] SUPERVISOR KOBE VENCES M.D. Performed By: #### C BC, BMP #### [place] [address] [place] GFR/1.73 sq M.predicted MDRD (S/P/Bld) [Vol rate/Area] 30.815 mL/min/{1.73_m2} [facility] Comment on above: Performed By: #### C BC, BMP #### [facility] [address] [place] [address] [place] Glucose [Mass/Vol] 104 mg/dL High 70-100 [facility] Comment on above: Result Comment: [place] Glucose Reference Range is dependent on time and content of last meal. Glucose of more than 200 mg/dL in a nonstressed, ambulatory subject supports the diagnosis of Diabetes Mellitus. ADA recommended reference range Performed By: #### C BC, BMP #### [address] Potassium [Moles/Vol] 4.7 mmol/L Normal 3.5-5.1 [facility] Comment on above: Performed By: #### C BC, BMP #### [address] Sodium [Moles/Vol] 144 mmol/L Normal 136-145 [facility] Comment on above: Performed By: #### C BC, BMP #### [address] Urea nitrogen [Mass/Vol] 33 mg/dL High 7-25 [facility] Comment on above: Performed By: #### C BC, BMP #### [address] Complete Blood Count Auto Di ffon 11-20-2022 Basophils (Bld) [#/Vol] 0.0 10*3/uL Normal 0.0-0.2 [facility] Comment on above: Result Comment: PERF ORMED BY: [place] [address] PATHOLOGIST FIELD PIPELIN[employer] SUPERVISOR KOBE VENCES M.D. Performed By: #### C BC, BMP #### [address] Basophils/100 WBC (Bld) 0.4 % Normal . [facility] Comment on above: Performed By: #### C BC, BMP #### [place] [address] [place] Eosinophils (Bld) [#/Vol] 0.1 10*3/uL Normal 0.0-0.45 [facility] Comment on above: Performed By: #### C BC, BMP #### [place] [address] [place] Eosinophils/100 WBC (Bld) 2.1 % Normal . [facility] Comment on above: Performed By: #### C BC, BMP #### [facility] [address] Erythrocyte distribution width (RBC) [Ratio] 15.6 % High 11.9-15.3 [facility] Comment on above: Performed By: #### C BC, BMP #### [facility] [address] Hematocrit (Bld) [Volume fraction] 24.9 % Low 34.0-46.4 [facility] Comment on above: Performed By: #### C BC, BMP #### [address] Hemoglobin (Bld) [Mass/Vol] 8.0 g/dL Low 11.8-15.4 [facility] Comment on above: Performed By: #### C BC, BMP #### [address] Lymphocytes (Bld) [#/Vol] 1.2 10*3/uL Normal 1.00-4.8 [facility] Comment on above: Performed By: #### C BC, BMP #### [address] Lymphocytes/100 WBC (Bld) 22.4 % Normal . [facility] Comment on above: Performed By: #### C BC, BMP #### [address] MCH (RBC) [Entitic mass] 28.9 pg Normal 24.7-34.3 [facility] Comment on above: Performed By: #### C BC, BMP #### [address] MCV (RBC) [Entitic vol] 90.0 fL Normal 80-100 [facility] Comment on above: Performed By: #### C BC, BMP #### [address] Mean Corpuscular HGB Conc 32.1 g/dL Normal 32.0-35.0 [facility] Comment on above: Performed By: #### C BC, BMP #### [address] [place] [address] [place] Monocytes (Bld) [#/Vol] 0.4 10*3/uL Normal 0.0-0.8 [facility] Comment on above: Performed By: #### C BC, BMP #### [facility] [address] [place] [address] [place] Monocytes/100 WBC (Bld) 6.7 % Normal . [facility] Comment on above: Performed By: #### C BC, BMP #### [facility] [address] Neutrophils (Bld) [#/Vol] 3.7 10*3/uL Normal 1.8-7.7 [facility] Comment on above: Performed By: #### C BC, BMP #### [address] Neutrophils/100 WBC (Bld) 68.4 % Normal . [facility] Comment on above: Performed By: #### C BC, BMP #### [address] NRBC% 0.1 /100{WBC} Normal 0-0.5 [facility] Comment on above: Performed By: #### C BC, BMP #### [address] Platelet mean volume (Bld) [Entitic vol] 7.9 fL Normal 6.3-10.7 [facility] Comment on above: Performed By: #### C BC, BMP #### [place] [address] [place] Platelets (Bld) [#/Vol] 133 10*3/uL Low 150-450 [facility] Comment on above: Performed By: #### C BC, BMP #### [place] [address] [place] RBC (Bld) [#/Vol] 2.77 10*6/uL Low 3.60-5.00 [facility] Comment on above: Performed By: #### C BC, BMP #### [address] [address] [place] WBC (Bld) [#/Vol] 5.4 10*3/uL Normal 3.8-11.6 [facility] Comment on above: Performed By: #### C BC, BMP #### [facility] [address] Glucose Poct Glucometerson 0 11-20-2022 Glucose [Mass/Vol] 135 mg/dL Normal [facility] Comment on above: Result Comment: [place] om Glucose Reference Range is dependent on time and content of last meal. Glucose of more than 200 mg/dL in a nonstressed, ambulatory subject supports the diagnosis of Diabetes Mellitus. PERFORMED BY: [place] [address] PATHOLOGIST FIELD PIPELINES SUPERVISOR KOBE VENCES M.D. Performed By: #### G LULS #### Point of Care testing , Glucose [Mass/Vol] 123 mg/dL Normal [facility] Comment on above: Result Comment: [place] om Glucose Reference Range is dependent on time and content of last meal. Glucose of more than 200 mg/dL in a nonstressed, ambulatory subject supports the diagnosis of Diabetes Mellitus. PERFORMED BY: [place] [address] PATHOLOGIST FIELD PIPELINES SUPERVISOR KOBE VENCES M.D. Performed By: #### B MP, MG, FE and TIBC, AFSANEH, CBC #### [facility] [address] [place] [address] Glucose [Mass/Vol] 116 mg/dL Normal [facility] Comment on above: Result Comment: [place] om Glucose Reference Range is dependent on time and content of last meal. Glucose of more than 200 mg/dL in a nonstressed, ambulatory subject supports the diagnosis of Diabetes Mellitus. PERFORMED BY: [place] [address] PATHOLOGIST FIELD PIPELINES SUPERVISOR KOBE VENCES M.D. Performed By: #### G LULS #### Point of Care testing , Glucose [Mass/Vol] 130 mg/dL Normal [facility] Comment on above: Result Comment: [place] om Glucose Reference Range is dependent on time and content of last meal. Glucose of more than 200 mg/dL in a nonstressed, ambulatory subject supports the diagnosis of Diabetes Mellitus. PERFORMED BY: [place] [address] PATHOLOGIST FIELD PIPELINES SUPERVISOR KOBE VENCES M.D. Performed By: #### B MP, MG, FE and TIBC, AFSANEH, CBC #### [address] Basic Metabolic Panelon 07-2 -2022 Anion gap [Moles/Vol] 9.8 mmol/L Normal 6.0-15.0 [facility] Comment on above: Performed By: #### B MP, MG, FE and TIBC, AFSANEH, CBC #### [address] Calcium [Mass/Vol] 8.1 mg/dL Low 8.6-10.3 [facility] Comment on above: Performed By: #### B MP, MG, FE and TIBC, AFSANEH, CBC #### [address] Chloride [Moles/Vol] 101 mmol/L Normal 98-107 [facility] Comment on above: Performed By: #### B MP, MG, FE and TIBC, AFSANEH, CBC #### [address] CO2 [Moles/Vol] 38.1 mmol/L High 21.0-31.0 [facility] Comment on above: Performed By: #### B MP, MG, FE and TIBC, AFSANEH, CBC #### [address] Creatinine [Mass/Vol] 1.76 mg/dL High 0.60-1.20 [facility] Comment on above: Performed By: #### B MP, MG, FE and TIBC, AFSANEH, CBC #### [address] Creatinine Clr Calc Pharmacy 25.90 Normal [facility] Comment on above: Performed By: #### B MP, MG, FE and TIBC, AFSANEH, CBC #### [address] GFR/1.73 sq M.predicted MDRD (S/P/Bld) [Vol rate/Area] 30.185 mL/min/{1.73_m2} Normal [facility] Comment on above: Performed By: #### B MP, MG, FE and TIBC, AFSANEH, CBC #### [facility] [address] Glucose [Mass/Vol] 100 mg/dL Normal 70-100 [facility] Comment on above: Result Comment: [facility] Glucose Reference Range is dependent on time and content of last meal. Glucose of more than 200 mg/dL in a nonstressed, ambulatory subject supports the diagnosis of Diabetes Mellitus. ADA recommended reference range Performed By: #### B MP, MG, FE and TIBC, AFSANEH, CBC #### [address] Potassium [Moles/Vol] 4.9 mmol/L Normal 3.5-5.1 [facility] Comment on above: Performed By: #### B MP, MG, FE and TIBC, AFSANEH, CBC #### [address] Sodium [Moles/Vol] 144 mmol/L Normal 136-145 [facility] Comment on above: Performed By: #### B MP, MG, FE and TIBC, AFSANEH, CBC #### [address] Urea nitrogen [Mass/Vol] 28 mg/dL High 7-25 [facility] Comment on above: Performed By: #### B MP, MG, FE and TIBC, AFSANEH, CBC #### [address] Complete Blood Count Auto Di ffon 11-19-2022 Basophils (Bld) [#/Vol] 0.0 10*3/uL Normal 0.0-0.2 [facility] Comment on above: Result Comment: PERF ORMED BY: [place] [address] PATHOLOGIST FIELD PIPELINES SUPERVISOR KOBE VENCES M.D. Performed By: #### B MP, MG, FE and TIBC, AFSANEH, CBC #### [address] Basophils/100 WBC (Bld) 0.7 % Normal . [facility] Comment on above: Performed By: #### B MP, MG, FE and TIBC, AFSANEH, CBC #### [address] Eosinophils (Bld) [#/Vol] 0.1 10*3/uL Normal 0.0-0.45 [facility] Comment on above: Performed By: #### B MP, MG, FE and TIBC, AFSANEH, CBC #### [address] Eosinophils/100 WBC (Bld) 2.0 % Normal . [facility] Comment on above: Performed By: #### B MP, MG, FE and TIBC, AFSANEH, CBC #### [address] Erythrocyte distribution width (RBC) [Ratio] 15.5 % High 11.9-15.3 [facility] Comment on above: Performed By: #### B MP, MG, FE and TIBC, AFSANEH, CBC #### [address] Hematocrit (Bld) [Volume fraction] 26.7 % Low 34.0-46.4 [facility] Comment on above: Performed By: #### B MP, MG, FE and TIBC, AFSANEH, CBC #### [address] Hemoglobin (Bld) [Mass/Vol] 8.5 g/dL Low 11.8-15.4 [facility] Comment on above: Performed By: #### B MP, MG, FE and TIBC, AFSANEH, CBC #### [address] Lymphocytes (Bld) [#/Vol] 1.6 10*3/uL Normal 1.00-4.8 [facility] Comment on above: Performed By: #### B MP, MG, FE and TIBC, AFSANEH, CBC #### [address] Lymphocytes/100 WBC (Bld) 25.1 % Normal . [facility] Comment on above: Performed By: #### B MP, MG, FE and TIBC, AFSANEH, CBC #### [address] MCH (RBC) [Entitic mass] 29.0 pg Normal 24.7-34.3 [facility] Comment on above: Performed By: #### B MP, MG, FE and TIBC, AFSANEH, CBC #### [address] MCV (RBC) [Entitic vol] 91.3 fL Normal 80-100 [facility] Comment on above: Performed By: #### B MP, MG, FE and TIBC, AFSANEH, CBC #### [address] Mean Corpuscular HGB Conc 31.8 g/dL Low 32.0-35.0 [facility] Comment on above: Performed By: #### B MP, MG, FE and TIBC, AFSANEH, CBC #### [address] Monocytes (Bld) [#/Vol] 0.4 10*3/uL Normal 0.0-0.8 [facility] Comment on above: Performed By: #### B MP, MG, FE and TIBC, AFSANEH, CBC #### [address] Monocytes/100 WBC (Bld) 6.6 % Normal . [facility] Comment on above: Performed By: #### B MP, MG, FE and TIBC, AFSANEH, CBC #### [address] Neutrophils (Bld) [#/Vol] 4.1 10*3/uL Normal 1.8-7.7 [facility] Comment on above: Performed By: #### B MP, MG, FE and TIBC, AFSANEH, CBC #### [address] Neutrophils/100 WBC (Bld) 65.6 % Normal . [facility] Comment on above: Performed By: #### B MP, MG, FE and TIBC, AFSANEH, CBC #### [address] NRBC% 0.1 /100{WBC} Normal 0-0.5 [facility] Comment on above: Performed By: #### B MP, MG, FE and TIBC, AFSANEH, CBC #### [address] Platelet mean volume (Bld) [Entitic vol] 7.6 fL Normal 6.3-10.7 [facility] Comment on above: Performed By: #### B MP, MG, FE and TIBC, AFSANEH, CBC #### [address] Platelets (Bld) [#/Vol] 140 10*3/uL Low 150-450 [facility] Comment on above: Performed By: #### B MP, MG, FE and TIBC, AFSANEH, CBC #### [address] RBC (Bld) [#/Vol] 2.93 10*6/uL Low 3.60-5.00 [facility] Comment on above: Performed By: #### B MP, MG, FE and TIBC, AFSANEH, CBC #### [address] WBC (Bld) [#/Vol] 6.2 10*3/uL Normal 3.8-11.6 [facility] Comment on above: Performed By: #### B MP, MG, FE and TIBC, AFSANEH, CBC #### [address] Creatine Kinaseon 07-20-2023 CK [Catalytic activity/Vol] 31 U/L Normal [facility] Comment on above: Order Comment: ultra sound come back in 10 mins Performed By: #### B MP, MG, FE and TIBC, AFSANEH, CBC #### [facility] [address] [place] [address] [place] CK [Catalytic activity/Vol] 35 U/L Normal [facility] Comment on above: Performed By: #### B MP, MG, FE and TIBC, AFSANEH, CBC #### [facility] [address] [place] [address] [place] Creatine kinase [Enzymatic a ctivity/volume] in Serum or PlasmaOrdered By: Gina Poole on 11-19-2022 CK [Catalytic activity/Vol] 31 U/L [facility] ECH echo transthoracicon ECH echo transthoracic [facility] [place] [address] [place] [address] Echocardiogram Signed Patient: Martin Hagen MR#: [id number] 52 : 1950 Acct:[id number] Age/Sex: 71 / F ADM Date: 11/18/22 Loc: Room: [address] [place] [address] Type: ADM IN Attending Dr: Gina Poole DO Ordering Provider: Gina Poole DO Date of Service: 11/18/22 ECH/ECH echo transthoracic: Shortness of Breath/Dyspnea Copies to: Colin Carrillo MD, FACC Gina Poole DO Height: 60 in Weight: 169 lb Performed By: Adrianna Díza RDCS BSA: 1.7 m2 BP: 150/74 mmHg HR: 67 Reason For Study: Shortness of Breath/Dyspnea History: Atrial fibrillation, CHF, COPD, DM, Hypertension, CPAP, Sleep Apnea, Hyperlipidemia, Smoker Interpretation Summary Mild concentric left ventricular hypertrophy. Ejection Fraction = 60-65%. The left atrium appears moderately dilated. Moderate to severe valvular aortic stenosis. The aortic valve peak velocity is 340 cm/s. The aortic valve maximum pressure gradient is 46 mmHg. The aortic valve mean gradient is 26 mmHg. The aortic valve area is calculated to be 0.9 cm2. Mitral valve annulus tissue Doppler imaging is consistent with elevated left atrial pressure. There is mild to moderate tricuspid regurgitation. The right ventricular systolic pressure is 84 mmHg. Right ventricular systolic pressure is consistent with severe pulmonary hypertension. There is no prior echocardiogram noted for this patient. Procedure/Quality: A two-dimensional transthoracic echocardiogram with color flow and Doppler was performed. The study was technically good in quality. There is no prior echocardiogram noted for this patient. Left Ventricle: Mild concentric left ventricular hypertrophy. Left ventricular systolic function is normal. Ejection Fraction = 60-65%. Mitral valve annulus tissue Doppler imaging is consistent with elevated left atrial pressure. Left Atrium: The left atrium appears moderately dilated. The atrial septum appears normal. Right Atrium: The right atrium appears normal in size. Right Ventricle: The right ventricular size, thickness and function are normal. Aortic Valve: The aortic valve is trileaflet. Moderate to severe valvular aortic stenosis. The aortic valve peak velocity is 340 cm/s. The aortic valve maximum pressure gradient is 46 mmHg. The aortic valve mean gradient is 26 mmHg. The aortic valve area is calculated to be 0.9 cm2. Mitral Valve: There is mild to moderate mitral annular calcification. The mitral valve is mildly sclerotic. There is trace mitral regurgitation. Tricuspid Valve: The tricuspid valve is normal. There is mild to moderate tricuspid regurgitation. The right ventricular systolic pressure is 84 mmHg. Right ventricular systolic pressure is consistent with severe pulmonary hypertension. Pulmonic Valve: The pulmonic valve is not well seen, but is grossly normal. Arteries: The aortic root is normal size. Pericardium/Pleura: No pericardial effusion seen. There is no pleural effusion. IVC/Hepatic Viens: The IVC is normal in size with an inspiratory collapse of greater then 50%, suggesting normal right atrial pressure. Miscellaneous: No thrombus, vegetation or mass is seen. Measurements with Normals IVSd: 1.5 cm (0.7-1.1 cm)LVIDd: 4.1 cm (3.7-5.4 cm) LVPWd: 1.2 cm (0.7-1.1 cm)LVIDs: 2.3 cm (2.3-3.6 cm) LA dimension: 5.6 cm (2.3-4.0 cm)Ao root diam: 2.7 cm(2.0-3.6 cm) asc Aorta Diam: 3.2 cm(2.1-3.4cm) Doppler with Normals RVSP(TR): 84.3 mmHg (18-35mmHg) LV V1 max: 145.5 cm/sec (0.7-1.7m/s)MV E max amrit: 151.0 cm/sec(0.8-1.3m/s) MV A max amrit: 145.5 cm/sec(0.0-0.0m/s) MV E/A: 1.0 (<1.5) MMode/2D Measurements Calculations RVDd: 3.8 cm FS: 44.1 % Ao root area: LVOT diam: 2.1 cm TAPSE: 2.4 cm EDV(Teich): 74.2 ml 5.8 cm2 LVOT area: 3.5 cm2 ESV(Teich): 17.9 ml EF(Teich): 75.8 % __ LVLd ap4: 8.0 cm SV(MOD-sp4): 60.5 ml LAV(MOD-sp4): LA A2 area: 26.7 cm2 EDV(MOD-sp4): 72.4 ml 106.0 ml LAV(MOD-sp2): LA A4 area: 24.3 cm2 LVLs ap4: 6.9 cm 86.0 ml LA length (vol): ESV(MOD-sp4): 6.6 cm 45.5 ml LA vol: 83.2 ml EF(MOD-sp4): LA vol index: 57.1 % 47.9 ml/m2 __ RA Volume: 70.1 mlRA Volume Index: 40.3 ml/m2 Doppler Measurements Calculations MV dec time: MV V2 max: E/E' lat: 28.9 MV dec slope: 0.24 sec 156.4 cm/sec E/E' med: 25.7 MV max P.8 mmHg 641.9 cm/sec2 MV V2 mean: 95.5 cm/sec MV mean P.1 mmHg MV V2 VTI: 51.0 cm MVA(VTI): 2.5 cm2 __ Ao V2 max: LV V1 max PG: TV max PG: TR max amrit: 339.3 cm/sec 8.5 mmHg 81.0 mmHg 451.0 cm/sec Ao max PG: LV V1 mean PG: TR max P.3 mmHg 46.1 mmHg 4.7 mmHg RAP systole: 3.0 mmHg Ao mean PG: LV V1 mean: 25.8 mmHg 101.3 cm/sec Ao V2 mean: LV V1 VTI: 36.3 cm 243.7 cm/sec Ao V2 VTI: 76.8 cm JUDITH(I,D): 1.7 cm2 JUDITH(V,D): 1.5 cm2 (more content not included)... Normal [facility] Ferritinon 11-19-2022 Ferritin [Mass/Vol] 388.8 ng/mL High 11.0-306.8 [facility] Comment on above: Result Comment: PERF ORMED BY: [place] [address] PATHOLOGIST FIELD PIPELINES SUPERVISOR KOBE VENCES M.D. Performed By: #### B MP, MG, FE and TIBC, AFSANEH, CBC #### [facility] [address] [place] [address] [facility] Ferritin [Mass/volume] in Se rum or PlasmaOrdered By: Gina Poole on 11-19-2022 Ferritin [Mass/Vol] 388.8 ng/mL 11.0-306.8 [facility] Glucose Poct Glucometerson 0 11-19-2022 Glucose [Mass/Vol] 140 mg/dL Normal [facility] Comment on above: Result Comment: [facility] Glucose Reference Range is dependent on time and content of last meal. Glucose of more than 200 mg/dL in a nonstressed, ambulatory subject supports the diagnosis of Diabetes Mellitus. PERFORMED BY: [facility] [address] [place] [address] PATHOLOGIST FIELD PIPELINES SUPERVISOR KOBE VENCES M.D. Performed By: #### B MP, MG, FE and TIBC, AFSANEH, CBC #### [facility] [address] [place] [address] [facility] Commemt1 Glu2: Cleaned Meter Normal [facility] Comment on above: Result Comment: PERF ORMED BY: [place] [address] PATHOLOGIST FIELD PIPELINES SUPERVISOR KOBE VENCES M.D. Performed By: #### B MP, MG, FE and TIBC, AFSANEH, CBC #### [address] Glucose [Mass/Vol] 168 mg/dL Normal [facility] Comment on above: Result Comment: [facility] Glucose Reference Range is dependent on time and content of last meal. Glucose of more than 200 mg/dL in a nonstressed, ambulatory subject supports the diagnosis of Diabetes Mellitus. Performed By: #### B MP, MG, FE and TIBC, AFSANEH, CBC #### [address] Iron [Mass/volume] in Serum or PlasmaOrdered By: Gina Poole on 11-19-2022 Iron [Mass/Vol] 28 ug/dL 50-212 [facility] Iron and TIBC Profileon 11-01 0-2022 % Iron Saturation 11.8 % Low 20-50 [facility] Comment on above: Performed By: #### B MP, MG, FE and TIBC, AFSANEH, CBC #### [address] Iron [Mass/Vol] 28 ug/dL Low 50-212 [facility] Comment on above: Performed By: #### B MP, MG, FE and TIBC, AFSANEH, CBC #### [place] [address] [place] Total Iron Binding Capacity 238 ug/dL Low 255-450 [facility] Comment on above: Performed By: #### B MP, MG, FE and TIBC, AFSANEH, CBC #### [place] [address] [place] Transferrin [Mass/Vol] 170 mg/dL Low 203-362 [facility] Comment on above: Performed By: #### B MP, MG, FE and TIBC, AFSANEH, CBC #### [place] [address] [place] Iron binding capacity [Mass/ volume] in Serum or PlasmaOrdered By: Gina Poole on 11-19-2022 Iron binding capacity [Mass/Vol] 238 ug/dL 255-450 [facility] Iron saturation [Mass Fracti on] in Serum or PlasmaOrdered By: Gina Poole on 11-19-2022 Iron saturation [Mass fraction] 11.8 % 20-50 [facility] Magnesiumon 11-19-2022 Magnesium [Mass/Vol] 1.5 mg/dL Low 1.9-2.7 [facility] Comment on above: Performed By: #### B MP, MG, FE and TIBC, AFSANEH, CBC #### [facility] [address] [place] [id number] [facility] Magnesium [Mass/volume] in S arti or PlasmaOrdered By: Gina Poole on 11-19-2022 Magnesium [Mass/Vol] 1.5 mg/dL 1.9-2.7 [facility] No Panel InformationOrdered By: Gina Poole on 11-19-2022 Bedside Glucose Comment Glu2: cleaned meter [facility] Transferrin [Mass/volume] in Serum or PlasmaOrdered By: Gina Poole on 11-19-2022 Transferrin [Mass/Vol] 170 mg/dL 203-362 [facility] Troponin I High Sensitivityo n 11-19-2022 Troponin I High Sensitivity 19.6 pg/mL High 0.0-15.0 [facility] Comment on above: Order Comment: ultra sound come back in 10 mins Result Comment: PERF ORMED BY: [facility] [address] [place] [address] PATHOLOGIST FIELD PIPELINES SUPERVISOR KOBE VENCES M.D. Performed By: #### B MP, MG, FE and TIBC, AFSANEH, CBC #### [facility] [address] [place] [id number] [facility] Troponin I High Sensitivity 17.3 pg/mL High 0.0-15.0 [facility] Comment on above: Result Comment: PERF ORMED BY: [facility] [address] [place] [address] PATHOLOGIST FIELD PIPELINES SUPERVISOR KOBE VENCES M.D. Performed By: #### B MP, MG, FE and TIBC, AFSANEH, CBC #### [facility] [address] [place] [address] Troponin I.cardiac [Mass/vol ume] in Serum or Plasma by Detection limit <= 0.01 ng/Ordered By: Gina Poole on 11-19-2022 Troponin I.cardiac DL <= 0.01 ng/mL [Mass/Vol] 19.6 pg/mL 0.0-15.0 [facility] Activated partial thrombopla stin time (aPTT) in platelet poor plasma by coagulation aOrdered By: Venkatesh Trammell on 11-18-2022 aPTT Coag (PPP) [Time] 35.1 s 25.1-36.5 [facility] Alanine aminotransferase [En zymatic activity/volume] in Serum or PlasmaOrdered By: Venkatesh Trammell on 11-18-2022 ALT [Catalytic activity/Vol] 10 U/L 7-52 [facility] Albumin [Mass/volume] in Ser um or Plasma by Bromocresol green (BCG) dye binding methoOrdered By: Venkatesh Trammell on 11-18-2022 Albumin BCG dye [Mass/Vol] 3.4 g/dL 3.5-5.7 [facility] Alkaline phosphatase [Enzyma tic activity/volume] in Serum or PlasmaOrdered By: Venkatesh Trammell on 11-18-2022 ALP [Catalytic activity/Vol] 54 U/L 34-104 [facility] Aspartate aminotransferase [ Enzymatic activity/volume] in Serum or PlasmaOrdered By: Venkatesh Trammell on 11-18-2022 AST [Catalytic activity/Vol] 15 U/L 13-39 [facility] B-Type Natriuretic Peptideon 11-18-2022 Natriuretic peptide B (Bld) [Mass/Vol] 2080.0 pg/mL High 5-100 [facility] Comment on above: Result Comment: PERF ORMED BY: [place] [address] PATHOLOGIST FIELD PIPELINES SUPERVISOR KOBE VENCES M.D. Performed By: #### B MP, MG, FE and TIBC, AFSANEH, CBC #### [facility] [address] [place] [address] Basic Metabolic Panelon 07- Anion gap [Moles/Vol] 10.0 mmol/L Normal 6.0-15.0 [facility] Comment on above: Performed By: #### B MP, MG, FE and TIBC, AFSANEH, CBC #### [facility] [address] Calcium [Mass/Vol] 8.1 mg/dL Low 8.6-10.3 [facility] Comment on above: Performed By: #### B MP, MG, FE and TIBC, AFSANEH, CBC #### [facility] [address] Chloride [Moles/Vol] 101 mmol/L Normal 98-107 [facility] Comment on above: Performed By: #### B MP, MG, FE and TIBC, AFSANEH, CBC #### [address] CO2 [Moles/Vol] 36.2 mmol/L High 21.0-31.0 [facility] Comment on above: Performed By: #### B MP, MG, FE and TIBC, AFSANEH, CBC #### [address] Creatinine [Mass/Vol] 1.78 mg/dL High 0.60-1.20 [facility] Comment on above: Performed By: #### B MP, MG, FE and TIBC, AFSANEH, CBC #### [address] Creatinine Clr Calc Pharmacy 25.51 Normal [facility] Comment on above: Result Comment: PERF ORMED BY: [place] [address] PATHOLOGIST FIELD PIPELINES SUPERVISOR KOBE VENCES M.D. Performed By: #### B MP, MG, FE and TIBC, AFSANEH, CBC #### [address] GFR/1.73 sq M.predicted MDRD (S/P/Bld) [Vol rate/Area] 29.779 mL/min/{1.73_m2} Normal [facility] Comment on above: Performed By: #### B MP, MG, FE and TIBC, AFSANEH, CBC #### [address] Glucose [Mass/Vol] 101 mg/dL High 70-100 [facility] Comment on above: Result Comment: [place] Glucose Reference Range is dependent on time and content of last meal. Glucose of more than 200 mg/dL in a nonstressed, ambulatory subject supports the diagnosis of Diabetes Mellitus. ADA recommended reference range Performed By: #### B MP, MG, FE and TIBC, AFSANEH, CBC #### [address] Potassium [Moles/Vol] 5.2 mmol/L High 3.5-5.1 [facility] Comment on above: Performed By: #### B MP, MG, FE and TIBC, AFSANEH, CBC #### [address] Sodium [Moles/Vol] 142 mmol/L Normal 136-145 [facility] Comment on above: Performed By: #### B MP, MG, FE and TIBC, AFSANEH, CBC #### [address] Urea nitrogen [Mass/Vol] 29 mg/dL High 7-25 [facility] Comment on above: Performed By: #### B MP, MG, FE and TIBC, AFSANEH, CBC #### [address] Basophils Auto (Bld) [#/Vol] Ordered By: Venkatesh Trammell on 11-18-2022 Basophils (Bld) [#/Vol] 0.0 10*3/uL 0.0-0.2 [facility] Basophils/100 WBC Auto (Bld) Ordered By: Venkatesh Trammell on 11-18-2022 Basophils/100 WBC (Bld) 0.7 % . [facility] Bilirubin.direct [Mass/volum e] in Serum or PlasmaOrdered By: Venkatesh Trammell on 11-18-2022 Bilirubin.direct [Mass/Vol] 0.10 mg/dL 0.03-0.18 [facility] Bilirubin.total [Mass/volume ] in Serum or PlasmaOrdered By: Venkatesh Trammell on 11-18-2022 Bilirubin [Mass/Vol] 0.4 mg/dL 0.3-1.0 [facility] Calcium [Mass/volume] in Ser um or PlasmaOrdered By: Venkatesh Trammell on 11-18-2022 Calcium [Mass/Vol] 8.1 mg/dL 8.6-10.3 [facility] Carbon dioxide, total [Moles /volume] in Serum or PlasmaOrdered By: Venkatesh Trammell on 11-18-2022 CO2 [Moles/Vol] 36.2 mmol/L 21.0-31.0 [facility] Chloride [Moles/volume] in S arti or PlasmaOrdered By: Venkatesh Trammell on 11-18-2022 Chloride [Moles/Vol] 101 mmol/L 98-107 [facility] Complete Blood Count Auto Di ffon 11-18-2022 Basophils (Bld) [#/Vol] 0.0 10*3/uL Normal 0.0-0.2 [facility] Comment on above: Result Comment: PERF ORMED BY: [place] [address] PATHOLOGIST FIELD PIPELINES SUPERVISOR KOBE VENCES M.D. Performed By: #### B MP, MG, FE and TIBC, AFSANEH, CBC #### [address] Basophils/100 WBC (Bld) 0.7 % Normal . [facility] Comment on above: Performed By: #### B MP, MG, FE and TIBC, AFSANEH, CBC #### [facility] [address] [place] [address] Eosinophils (Bld) [#/Vol] 0.1 10*3/uL Normal 0.0-0.45 [facility] Comment on above: Performed By: #### B MP, MG, FE and TIBC, AFSANEH, CBC #### [place] [address] [place] Eosinophils/100 WBC (Bld) 1.7 % Normal . [facility] Comment on above: Performed By: #### B MP, MG, FE and TIBC, AFSANEH, CBC #### [address] Erythrocyte distribution width (RBC) [Ratio] 15.2 % Normal 11.9-15.3 [facility] Comment on above: Performed By: #### B MP, MG, FE and TIBC, AFSANEH, CBC #### [address] Hematocrit (Bld) [Volume fraction] 26.8 % Low 34.0-46.4 [facility] Comment on above: Performed By: #### B MP, MG, FE and TIBC, AFSANEH, CBC #### [address] Hemoglobin (Bld) [Mass/Vol] 8.7 g/dL Low 11.8-15.4 [facility] Comment on above: Performed By: #### B MP, MG, FE and TIBC, AFSANEH, CBC #### [address] Lymphocytes (Bld) [#/Vol] 1.5 10*3/uL Normal 1.00-4.8 [facility] Comment on above: Performed By: #### B MP, MG, FE and TIBC, AFSANEH, CBC #### [address] Lymphocytes/100 WBC (Bld) 22.5 % Normal . [facility] Comment on above: Performed By: #### B MP, MG, FE and TIBC, AFSANEH, CBC #### [address] MCH (RBC) [Entitic mass] 29.1 pg Normal 24.7-34.3 [facility] Comment on above: Performed By: #### B MP, MG, FE and TIBC, AFSANEH, CBC #### [address] MCV (RBC) [Entitic vol] 89.8 fL Normal 80-100 [facility] Comment on above: Performed By: #### B MP, MG, FE and TIBC, AFSANEH, CBC #### [address] Mean Corpuscular HGB Conc 32.4 g/dL Normal 32.0-35.0 [facility] Comment on above: Performed By: #### B MP, MG, FE and TIBC, AFSANEH, CBC #### [address] Monocytes (Bld) [#/Vol] 0.4 10*3/uL Normal 0.0-0.8 [facility] Comment on above: Performed By: #### B MP, MG, FE and TIBC, AFSANEH, CBC #### [address] Monocytes/100 WBC (Bld) 16.05 % Normal 0.00-20.00 [facility] Comment on above: Performed By: #### B MP, MG, FE and TIBC, AFSANEH, CBC #### [address] Monocytes/100 WBC (Bld) 5.7 % Normal . [facility] Comment on above: Performed By: #### B MP, MG, FE and TIBC, AFSANEH, CBC #### [address] Neutrophils (Bld) [#/Vol] 4.7 10*3/uL Normal 1.8-7.7 [facility] Comment on above: Performed By: #### B MP, MG, FE and TIBC, AFSANEH, CBC #### [address] Neutrophils/100 WBC (Bld) 69.4 % Normal . [facility] Comment on above: Performed By: #### B MP, MG, FE and TIBC, AFSANEH, CBC #### [address] NRBC% 0.0 /100{WBC} Normal 0-0.5 [facility] Comment on above: Performed By: #### B MP, MG, FE and TIBC, AFSANEH, CBC #### [address] Platelet mean volume (Bld) [Entitic vol] 8.2 fL Normal 6.3-10.7 [facility] Comment on above: Performed By: #### B MP, MG, FE and TIBC, AFSANEH, CBC #### [address] Platelets (Bld) [#/Vol] 169 10*3/uL Normal 150-450 [facility] Comment on above: Performed By: #### B MP, MG, FE and TIBC, AFSANEH, CBC #### [address] RBC (Bld) [#/Vol] 2.98 10*6/uL Low 3.60-5.00 [facility] Comment on above: Performed By: #### B MP, MG, FE and TIBC, AFSANEH, CBC #### [address] WBC (Bld) [#/Vol] 6.8 10*3/uL Normal 3.8-11.6 [facility] Comment on above: Performed By: #### B MP, MG, FE and TIBC, AFSANEH, CBC #### [address] Creatine Kinaseon 11-18-2022 CK [Catalytic activity/Vol] 44 U/L Normal 30-223 [facility] Comment on above: Performed By: #### B MP, MG, FE and TIBC, AFSANEH, CBC #### [address] CK [Catalytic activity/Vol] 46 U/L Normal 30-223 [facility] Comment on above: Performed By: #### B MP, MG, FE and TIBC, AFSANEH, CBC #### [address] Creatine kinase [Enzymatic a ctivity/volume] in Serum or PlasmaOrdered By: Gina Poole on 11-18-2022 CK [Catalytic activity/Vol] 44 U/L 30-223 [facility] Creatinine [Mass/volume] in Serum or PlasmaOrdered By: Venkatesh Trammell on 11-18-2022 Creatinine [Mass/Vol] 1.78 mg/dL 0.60-1.20 [facility] ECG 12 lead ECGon 11-18-2022 ECG 12 lead ECG [facility] [place] [address] Electrocardiograph Report Signed Patient: Martin Hagen MR#: [id number] 52 : 1950 Acct:[id number] Age/Sex: 71 / F ADM Date: 11/18/22 Loc: Room: [address] [place] [address] Type: ADM IN Attending Dr: Gina Poole DO Ordering Provider: Venkatesh Trammell DO Date of Service: 11/18/22 ECG/ECG 12 lead ECG: Shortness of Breath/Dyspnea Copies to: Test Reason : Blood Pressure : 153/069 mmHG Vent. Rate : 071 BPM Atrial Rate : 071 BPM P-R Int : 170 ms QRS Dur : 076 ms QT Int : 404 ms P-R-T Axes : -04 022 048 degrees QTc Int : 439 ms Normal sinus rhythm Cannot rule out Anterior infarct , age undetermined Abnormal ECG No previous ECGs available Confirmed by Venkatesh Trammell DO ([id number]) on 11/19/2022 12:36:06 AM Referred By: Electronically Signed By:Venkatesh Trammell DO Transcribed By: MUS Signed By Venkatesh Trammell DO 3 0036 Normal [facility] Eosinophils Auto (Bld) [#/Vo l]Ordered By: Venkatesh Trammell on 11-18-2022 Eosinophils (Bld) [#/Vol] 0.1 10*3/uL 0.0-0.45 [facility] Eosinophils/100 WBC Auto (Bl d)Ordered By: Venkatesh Trammell on 11-18-2022 Eosinophils/100 WBC (Bld) 1.7 % . [facility] Erythrocyte distribution wid th Auto (RBC) [Ratio]Ordered By: Venkatesh Trammell on 11-18-2022 Erythrocyte distribution width (RBC) [Ratio] 15.2 % 11.9-15.3 [facility] Globulin Calc (S) [Mass/Vol] Ordered By: Venkatesh Trammell on 11-18-2022 Globulin (S) [Mass/Vol] 3.2 g/dL [facility] Glucose [Mass/volume] in Ser um or PlasmaOrdered By: Venkatesh Trammell on 11-18-2022 Glucose [Mass/Vol] 101 mg/dL 70-100 [facility] Comment on above: ADA recommended refe rence rangeRandom Glucose Reference Range is dependent on time and content of last meal. Glucose of more than 200 mg/dL in a nonstressed, ambulatory subject supports the diagnosis of Diabetes Mellitus. Hematocrit Auto (Bld) [Volum e fraction]Ordered By: Venkatesh Trammell on 11-18-2022 Hematocrit (Bld) [Volume fraction] 26.8 % 34.0-46.4 [facility] Hemoglobin [Mass/volume] in BloodOrdered By: Venkatesh Trammell on 11-18-2022 Hemoglobin (Bld) [Mass/Vol] 8.7 g/dL 11.8-15.4 [facility] Hepatic Panelon 11-18-2022 Albumin [Mass/Vol] 3.4 g/dL Low 3.5-5.7 [facility] Comment on above: Performed By: #### H EPATIC #### [facility] [address] [place] [address] Albumin/Globulin [Mass ratio] 1.1 {ratio} Normal [facility] Comment on above: Performed By: #### H EPATIC #### [facility] [address] [place] [address] [place] ALP [Catalytic activity/Vol] 54 U/L Normal 34-104 [facility] Comment on above: Result Comment: PERF ORMED BY: [place] [address] PATHOLOGIST FIELD PIPELINES SUPERVISOR KOBE VENCES M.D. Performed By: #### H EPATIC #### [facility] [address] [place] [address] ALT [Catalytic activity/Vol] 10 U/L Normal 7-52 [facility] Comment on above: Performed By: #### H EPATIC #### [address] AST [Catalytic activity/Vol] 15 U/L Normal 13-39 [facility] Comment on above: Performed By: #### H EPATIC #### [address] Bilirubin [Mass/Vol] 0.4 mg/dL Normal 0.3-1.0 [facility] Comment on above: Performed By: #### H EPATIC #### [address] Bilirubin,Indirect 0.3 mg/dL Normal [facility] Comment on above: Performed By: #### H EPATIC #### [address] Bilirubin.indirect [Mass/Vol] 0.10 mg/dL Normal 0.03-0.18 [facility] Comment on above: Performed By: #### H EPATIC #### [address] Globulin (S) [Mass/Vol] 3.2 g/dL Normal [facility] Comment on above: Performed By: #### H EPATIC #### [address] Protein [Mass/Vol] 6.6 g/dL Normal 6.4-8.9 [facility] Comment on above: Performed By: #### H EPATIC #### [address] Laboratory - CoagulationOrde red By: Venkatesh Trammell on 11-18-2022 PT Coag (PPP) [Time] 17.6 s 9.0-12.9 [facility] Leukocytes [#/volume] correc loan for nucleated erythrocytes in Blood by Automated counOrdered By: Venkatesh Trammell on 11-18-2022 WBC corrected for nucl RBC Auto (Bld) [#/Vol] 6.8 10*3/uL 3.8-11.6 [facility] Lymphocytes Auto (Bld) [#/Vo l]Ordered By: Venkatesh Trammell on 11-18-2022 Lymphocytes (Bld) [#/Vol] 1.5 10*3/uL 1.00-4.8 [facility] Lymphocytes/100 WBC Auto (Bl d)Ordered By: Venkatesh Trammell on 11-18-2022 Lymphocytes/100 WBC (Bld) 22.5 % . [facility] MCH Auto (RBC) [Entitic mass ]Ordered By: Venkatesh Trammell on 11-18-2022 MCH (RBC) [Entitic mass] 29.1 pg 24.7-34.3 [facility] MCHC Auto (RBC) [Mass/Vol]Or dered By: Venkatesh Trammell on 11-18-2022 MCHC (RBC) [Mass/Vol] 32.4 g/dL 32.0-35.0 [facility] MCV Auto (RBC) [Entitic vol] Ordered By: Venkatesh Trammell on 11-18-2022 MCV (RBC) [Entitic vol] 89.8 fL 80-100 [facility] Monocyte distribution width [Entitic volume] in Blood by AutomatedOrdered By: Venkatesh Trammell on 11-18-2022 Monocyte distribution width Auto (Bld) [Entitic vol] 16.05 % 0.00-20.00 [facility] Monocytes Auto (Bld) [#/Vol] Ordered By: Venkatesh Trammell on 11-18-2022 Monocytes (Bld) [#/Vol] 0.4 10*3/uL 0.0-0.8 [facility] Monocytes/100 WBC Auto (Bld) Ordered By: Venkatesh Trammell on 11-18-2022 Monocytes/100 WBC (Bld) 5.7 % . [facility] Natriuretic peptide B [Mass/ Vol]Ordered By: Venkatesh Trammell on 11-18-2022 Natriuretic peptide B (Bld) [Mass/Vol] 2080.0 pg/mL 5-100 [facility] Neutrophils Auto (Bld) [#/Vo l]Ordered By: Venkatesh Trammell on 11-18-2022 Neutrophils (Bld) [#/Vol] 4.7 10*3/uL 1.8-7.7 [facility] Neutrophils/100 WBC Auto (Bl d)Ordered By: Venkatesh Trammell on 11-18-2022 Neutrophils/100 WBC (Bld) 69.4 % . [facility] No Panel InformationOrdered By: Venkatesh Trammell on 11-18-2022 Estimated GFR (CKD-EPI) 29.779 mL/Min [facility] Creatinine Clearance (Chem 25.51 [facility] Nucleated erythrocytes [Pres ence] in Blood by Automated countOrdered By: Venkatesh Trammell on 11-18-2022 Nucleated RBC Auto Ql (Bld) 0.0 /100{WBC} 0-0.5 [facility] Partial Thromboplastin Timeo n 11-18-2022 aPTT Coag (Bld) [Time] 35.1 s Normal 25.1-36.5 [facility] Comment on above: Result Comment: PERF ORMED BY: [place] [address] PATHOLOGIST FIELD PIPELINES SUPERVISOR KOBE VENCES M.D. Performed By: #### B MP, MG, FE and TIBC, AFSANEH, CBC #### [address] Platelet mean volume Auto (B ld) [Entitic vol]Ordered By: Venkatesh Trammell on 11-18-2022 Platelet mean volume (Bld) [Entitic vol] 8.2 fL 6.3-10.7 [facility] Platelet poor plasma interna tional normalized ratio (INR) by coagulation assay (relatOrdered By: Venkatesh Trammell on 11-18-2022 INR Coag (PPP) [Relative time] 1.5 {INR} [facility] Comment on above: INR Therapeutic Rang e A) Pre- and Peroperative OAT started two weeks before surgery. NOT HIP SURGERY: 1.5 - 2.5 HIP SURGERY: 2 - 3B) Primary and secondary prevention of venous THROMBOSIS: 2 - 3C) Active venous thrombosis, pulmonary embolismand prevention of recurrent venous thrombosis: 2 - 3D) Prevention of arterial thromboembolismincluding patients with mechanical heart valves: 3 - 4.5 Platelets Auto (Bld) [#/Vol] Ordered By: Venkatesh Trammell on 11-18-2022 Platelets (Bld) [#/Vol] 169 10*3/uL 150-450 [facility] Potassium [Moles/volume] in Serum or PlasmaOrdered By: Venkatesh Trammell on 11-18-2022 Potassium [Moles/Vol] 5.2 mmol/L 3.5-5.1 [facility] Protein [Mass/volume] in Ser um or PlasmaOrdered By: Venkatesh Trammell on 11-18-2022 Protein [Mass/Vol] 6.6 g/dL 6.4-8.9 [facility] Prothrombin Time INRon 11-18 INR Coag (PPP) [Relative time] 1.5 {INR} Normal [facility] Comment on above: Result Comment: INR Therapeutic Range A) Pre- and Peroperative OAT started two weeks before surgery. NOT HIP SURGERY: 1.5 - 2.5 HIP SURGERY: 2 - 3 B) Primary and secondary prevention of venous THROMBOSIS: 2 - 3 C) Active venous thrombosis, pulmonary embolism and prevention of recurrent venous thrombosis: 2 - 3 D) Prevention of arterial thromboembolism including patients with mechanical heart valves: 3 - 4.5 Performed By: #### B MP, MG, FE and TIBC, AFSANEH, CBC #### [facility] [address] PT Coag (PPP) [Time] 17.6 s High 9.0-12.9 [facility] Comment on above: Performed By: #### B MP, MG, FE and TIBC, AFSANEH, CBC #### [facility] [address] RBC Auto (Bld) [#/Vol]Ordere d By: Venkatesh Trammell on 11-18-2022 RBC (Bld) [#/Vol] 2.98 10*6/uL 3.60-5.00 [facility] Serum or plasma albumin/glob ulin mass ratioOrdered By: Venkatesh Trammell on 11-18-2022 Albumin/Globulin [Mass ratio] 1.1 {ratio} [facility] Serum or plasma anion gap de terminationOrdered By: Venkatesh Trammell on 11-18-2022 Anion gap [Moles/Vol] 10.0 mmol/L 6.0-15.0 [facility] Serum or plasma non-glucuron idated bilirubin measurement (mass/volume)Ordered By: Venkatesh Trammell on 11-18-2022 Bilirubin.indirect [Mass/Vol] 0.3 mg/dL [facility] Sodium [Moles/volume] in Ser um or PlasmaOrdered By: Venkatesh Trammell on 11-18-2022 Sodium [Moles/Vol] 142 mmol/L 136-145 [facility] Troponin I High Sensitivityo n 11-18-2022 Troponin I High Sensitivity 18.4 pg/mL High 0.0-15.0 [facility] Comment on above: Result Comment: PERF ORMED BY: [place] [address] PATHOLOGIST FIELD PIPELINES SUPERVISOR KOBE VENCES M.D. Performed By: #### B MP, MG, FE and TIBC, AFSANEH, CBC #### [address] Troponin I High Sensitivity 18.0 pg/mL High 0.0-15.0 [facility] Comment on above: Result Comment: PERF ORMED BY: [place] [address] PATHOLOGIST FIELD PIPELINES SUPERVISOR KOBE VENCES M.D. Performed By: #### B MP, MG, FE and TIBC, AFSANEH, CBC #### [facility] [address] [place] [address] Troponin I.cardiac [Mass/vol ume] in Serum or Plasma by Detection limit <= 0.01 ng/Ordered By: Gina Poole on 11-18-2022 Troponin I.cardiac DL <= 0.01 ng/mL [Mass/Vol] 18.4 pg/mL 0.0-15.0 [facility] Urea nitrogen [Mass/volume] in Serum or PlasmaOrdered By: Venkatesh Trammell on 11-18-2022 Urea nitrogen [Mass/Vol] 29 mg/dL 7-25 [facility] WBC Auto (Bld) [#/Vol]Ordere d By: Venkatesh Trammell on 11-18-2022 WBC (Bld) [#/Vol] 6.8 10*3/uL 3.8-11.6 [facility] XR chest 1V portableon 11-18 XR chest 1V portable [facility] [place] [address] [place] [address] XRay Report Signed Patient: Martin Hagen MR#: [id number] 52 : 1950 Acct:[id number] Age/Sex: 71 / F ADM Date: 11/18/22 Loc: ER Room: Type: PRE ER Attending Dr: Copies to: Venkatesh Trammell DO Ordering Provider: Venkatesh Trammell DO Date of Service: 11/18/22 XR/XR chest 1V portable: Shortness of Breath/Dyspnea SINGLE VIEW CHEST CLINICAL HISTORY: Shortness of breath COMPARISON: None FINDINGS: Cardiomegaly with vascular congestion, bibasilar airspace disease and likely small pleural effusions are noted. No pneumothorax or free air. XR/XR chest 1V portable IMPRESSION: CHF FINDINGS. SUPERIMPOSED PNEUMONIA CANNOT BE EXCLUDED. Impression dictated by: Perez Ferreira Jr., D.OJesse11/18/2022 5:40 PM Dictation Location: [id number] Transcribed By: [facility] 11/18/221739 Dictated By: Perez Ferreira Jr, DO 11/18/22 173 Signed By: 11/18/221739 [facility] 36on 10-30-2022 36 Milena from [facility] called to make you aware that patient has gained 5lbs since the [employer] increase on 10/27. She said her lungs are clear and diminished. She is not coughing and she is not edematous. Did you want to make any other changes? Please advise. Thanks. [facility] Telephoneon 10-30-2022 Telephone [id number] Maria G Hagen 1950 F Date Provider Department Center 10/30/2022 PHILL HALEY [facility] Family History Problem Relation Age of Onset Stroke Mother Hypertension Mother Heart attack Father Hypertension Sister Heart attack Sister Heart attack Brother Family Status - Relation Status Age at Mother Father Sister Brother Normal [facility] Office Visiton 10-27-2022 Follow-up visit [id number] Maria G Hagen 1950 F Date Provider Department Center 10/27/2022 Lesley[facility] Family History Problem Relation Age of Onset Stroke Mother Hypertension Mother Heart attack Father Hypertension Sister Heart attack Sister Heart attack Brother Family Status - Relation Status Age at Mother Father Sister Brother Level of Service:41408 NC OFFICE/OUTPATIENT ESTABLISHED MOD MDM 30-39 MIN Normal [facility] Office Visiton 09-22-2022 Follow-up visit [id number] Maria G Hagen 1950 Date Provider Department Center 09/22/2022 Wilmer-SILVA MAXWELL AKILAH [facility] Family History Problem Relation Age of Onset Stroke Mother Hypertension Mother Heart attack Father Hypertension Sister Heart attack Sister Heart attack Brother Family Status - Relation Status Age at Mother Father Sister Brother Level of Service:03788 NC OFFICE/OUTPATIENT ESTABLISHED LOW MDM 20-29 MIN Reason for Visit and Comments: Follow-up [461814] - Event monitor follow up Normal [facility] BNPon 09-08-2022 Natriuretic peptide B (Bld) [Mass/Vol] 67525.0 pg/mL Critically high <=900.[address] [facility] Comment on above: Performed By: #### C MP, BNP ####[facility] [address] [place] [address]Dr. Ivette Hernandez CBC AUTO DIFFon 09-08-2022 BASO # 0.0 103/ul Normal 0.0-0.[address] [facility] Comment on above: Performed By: #### C BC ####[facility] [address] [place] [address]Dr. Ivette Hernandez Basophils/100 WBC (Bld) 0.0 % Critically low 0.2-2.[address] [facility] Comment on above: Performed By: #### C BC ####[facility] [address] [place] [address]Dr. Ivette Hernandez EO # 0.0 103/ul Normal 0.0-0.7 [facility] Comment on above: Performed By: #### C BC ####[facility] [address] [place] [address]Dr. Ivette Hernandez Eosinophils/100 WBC (Bld) 0.0 % Critically low 0.9-7.0 [facility] Comment on above: Performed By: #### C BC ####[facility] [address] [place], [place] [address]Dr. Ivette Hernandez Erythrocyte distribution width (RBC) [Ratio] 14.0 % Normal 11.0-15.0 [facility] Comment on above: Performed By: #### C BC ####[facility] [address] [place], [place] [address]Dr. Ivette Hernandez Hematocrit (Bld) [Volume fraction] 26.0 % Critically low 36.0-48.0 [facility] Comment on above: Performed By: #### C BC ####[facility] [address] [place], [place] [address]Dr. Ivette Hernandez Hemoglobin (Bld) [Mass/Vol] 8.2 g/dL Critically low 12.0-16.0 [facility] Comment on above: Performed By: #### C BC ####[facility] [address] [place], [place] [address]Dr. Ivette Hernandez IG # 0.06 10e3/ul Critically high 0.00-0.03 [facility] Comment on above: Performed By: #### C BC ####[facility] [address] [place], [place] [address]Dr. Ivette Hernandez IG % 0.7 % Critically high 0.0-0.5 [facility] Comment on above: Performed By: #### C BC ####[facility] [address] [place], [place] [address]DrJesse Hernandez LYMPH # 0.7 103/ul Critically low 1.2-3.8 [facility] Comment on above: Performed By: #### C BC ####[facility] [address] [place], [place] [address]Dr. Ivette Hernandez Lymphocytes/100 WBC (Bld) 8.2 % Critically low 20.5-60.[address] [facility] Comment on above: Performed By: #### C BC ####[facility] [address] [place], [place] [address]DrJesse Hernandez MANUAL DIFF REQ NO Normal [facility] Comment on above: Performed By: #### C BC ####[facility] [address] [place], [place] [address]DrJesse Hernandez MCH (RBC) [Entitic mass] 29.4 pg Normal 26.7-34.0 [facility] Comment on above: Performed By: #### C BC ####[facility] [address] [place], [place] [address]DrJesse Hernandez MCHC (RBC) [Mass/Vol] 31.5 g/dL Normal 29.9-35.2 [facility] Comment on above: Performed By: #### C BC ####[facility] [address] [place], [place] [address]DrJesse Hernandez MCV (RBC) [Entitic vol] 93.2 fL Normal 81.0-99.0 [facility] Comment on above: Performed By: #### C BC ####[facility] [address] [place], [place] [address]DrJesse Hernandez MONO # 0.3 103/ul Normal 0.3-0.8 [facility] Comment on above: Performed By: #### C BC ####[facility] [address] [place], [place] [address]DrJesse Hernandez Monocytes/100 WBC (Bld) 3.5 % Normal 1.7-12.0 [facility] Comment on above: Performed By: #### C BC ####[facility] [address] [place], [place] [address]DrJesse Hernandez NEUT # 7.6 103/ul Critically high 1.4-6.5 [facility] Comment on above: Performed By: #### C BC ####[facility] [address] [place], [place] [address]DrJesse Hernandez Neutrophils/100 WBC (Bld) 87.6 % Critically high 43.0-75.[address] [facility] Comment on above: Performed By: #### C BC ####[facility] [address] [place] [address]Dr. Ivette Hernandez Platelet mean volume (Bld) [Entitic vol] 9.6 fL Normal 9.5-13.[address] [facility] Comment on above: Performed By: #### C BC ####[facility] [address] [place] [address]Dr. Ivette Hernandez PLT 224 103/ul Normal 150-[address] [facility] Comment on above: Performed By: #### C BC ####[facility] Jenovuygwb54[address] [place], [place] [address]Dr. Ivette Hernandez RBC 2.79 106/ul Critically low 4.20-5.[address] [facility] Comment on above: Performed By: #### C BC ####[facility] Xnsieiseaq78[address] [place], [place] [address]DrJeses Hernandez WBC 8.7 103/ul Normal 4.0-11.[address] [facility] Comment on above: Performed By: #### C BC ####[facility] Qsfkcizofb14[address] [place], [place] [address]DrJesse Hernandez PROF 14(COMP METB)on 023 Albumin [Mass/Vol] 2.5 g/dL Critically low 3.4-5.0 [facility] Comment on above: Performed By: #### C MP, BNP ####[facility] Idtbjrukox34[address] [place], [place] [address]Dr. Ivette Hernandez Albumin/Globulin [Mass ratio] 0.6 {ratio} Normal [facility] Comment on above: Performed By: #### C MP, BNP ####[facility] Ezzybcdfux350[address] [place], [place] [address]Dr. Ivette Hernandez ALP [Catalytic activity/Vol] 66 U/L Normal 46-[address] [facility] Comment on above: Performed By: #### C MP, BNP ####[facility] Bmvkxfqrub3038[address] [place], [place] [address]Dr. Ivette Hernandez ALT [Catalytic activity/Vol] 20 U/L Normal 14-59 [facility] Comment on above: Performed By: #### C MP, BNP ####[facility] Uwasfjvrvs995[address] [place], [place] [address]Dr. Ivette Hernandez Anion gap [Moles/Vol] 9.1 mmol/L Normal [facility] Comment on above: Performed By: #### C MP, BNP ####[facility] Krmslgwuxb264[address] [place], [place] [address]Dr. Ivette Hernandez AST [Catalytic activity/Vol] 11 U/L Critically low 15-37 [facility] Comment on above: Performed By: #### C MP, BNP ####[facility] Euzgfplbqi5757[address] [place], [place] [address]Dr. Ivette Hernandez Bilirubin [Mass/Vol] 0.4 mg/dL Normal 0.2-1.0 [facility] Comment on above: Performed By: #### C MP, BNP ####[facility] Iigbmxmggj3109[address] [place], [place] [address]Dr. Ivette Hernandez Calcium [Mass/Vol] 8.5 mg/dL Normal 8.5-10.1 [facility] Comment on above: Performed By: #### C MP, BNP ####[facility] Xarsfgrmxf6659[address] [place], [place] [address]Dr. Ivette Hernandez Chloride [Moles/Vol] 103 mmol/L Normal 98-107 [facility] Comment on above: Performed By: #### C MP, BNP ####[facility] Qxccqoyfrb280[address] [place], [place] [address]Dr. Ivette Hernandez CO2 [Moles/Vol] 37.1 mmol/L Critically high 21.0-32.0 [facility] Comment on above: Performed By: #### C MP, BNP ####[facility] Xzjspsyeep0912[address] [place], [place] [address]Dr. Ivette David Creatinine [Mass/Vol] 1.87 mg/dL Critically high 0.55-1.02 [facility] Comment on above: Performed By: #### C MP, BNP ####[facility] Ifxotitgat[address] [place] [address]Dr. Ivette Hernandez EGFR-AF AUSTRALIAN 32 mL/min/1.73m2 Critically low >=[address] [facility] Comment on above: Performed By: #### C MP, BNP ####[facility] Haxuerstur7[address] [place], [place] [address]Dr. Ivette Hernandez EGFR-NON AF AUSTRALIAN 26 mL/min/1.73m2 Critically low >=60 [facility] Comment on above: Performed By: #### C MP, BNP ####[facility] Ladohimhvr8299[address] [place], [place] [address]Dr. Ivette Hernandez Globulin (S) [Mass/Vol] 4.2 g/dL Normal [facility] Comment on above: Performed By: #### C MP, BNP ####[facility] Skcstbpqkd8789[address] [place], [place] [address]Dr. Ivette Hernandez Glucose [Mass/Vol] 196 mg/dL Critically high 74-106 [facility] Comment on above: Performed By: #### C MP, BNP ####[facility] Ymsmnymwxj6230[address] [place], [place] [address]Dr. Ivette Hernandez Potassium [Moles/Vol] 4.2 mmol/L Normal 3.5-5.1 [facility] Comment on above: Performed By: #### C MP, BNP ####[facility] Fskbreeocx5516[address] [place], [place] [address]Dr. Ivette Hernandez Protein [Mass/Vol] 6.7 g/dL Normal 6.4-8.2 [facility] Comment on above: Performed By: #### C MP, BNP ####[facility] Leapzkopeb[address] [place], [place] [address]Dr. Ivette Hernandez Sodium [Moles/Vol] 145 mmol/L Normal 136-[address] [facility] Comment on above: Performed By: #### C MP, BNP ####[facility] Cnkwehffgi566[address] [place], [place] [address]Dr. Ivette Hernandez Urea nitrogen [Mass/Vol] 45.0 mg/dL Critically high 7.0-18.[address] [facility] Comment on above: Performed By: #### C MP, BNP ####[facility] Zaihuvaztw737[address] [place], [place] [address]Dr. Ivette Hernandez Urea nitrogen/Creatinine [Mass ratio] 24.1 mg/mg Normal [facility] Comment on above: Performed By: #### C MP, BNP ####[facility] Cxvzdoqeos750[address] [place], [place] [address]Dr. Ivette Hernandez BNPon 09-07-2022 Natriuretic peptide B (Bld) [Mass/Vol] 41801.0 pg/mL Critically high <=900.[address] [facility] Comment on above: Performed By: #### C MP, BNP ####[facility] Dxbhenwnho9958[address] [place], [place] [address]Dr. Ivette Hernandez CBC AUTO DIFFon 09-07-2022 BASO # 0.0 103/ul Normal 0.0-0.[address] [facility] Comment on above: Performed By: #### C BC ####[facility] Cbpizpcets7914[address] [place], [place] [address]Dr. Ivette Hernandez Basophils/100 WBC (Bld) 0.1 % Critically low 0.2-2.[address] [facility] Comment on above: Performed By: #### C BC ####[facility] Ghvgiyhyyp6184[address] [place], [place] [address]DrJesse Hernandez EO # 0.0 103/ul Normal 0.0-0.[address] [facility] Comment on above: Performed By: #### C BC ####[facility] Uvqgvosmhe9428[address] [place], [place] [address]Dr. Ivette Hernandez Eosinophils/100 WBC (Bld) 0.0 % Critically low 0.9-7.0 [facility] Comment on above: Performed By: #### C BC ####[facility] Lrlzrpypow3353[address] [place], [place] [address]Dr. Ivette Hernandez Erythrocyte distribution width (RBC) [Ratio] 13.9 % Normal 11.0-15.[address] [facility] Comment on above: Performed By: #### C BC ####[facility] Amefoyaybq7785[address] [place], [place] [address]Dr. Ivette Hernandez Hematocrit (Bld) [Volume fraction] 26.6 % Critically low 36.0-48.0 [facility] Comment on above: Performed By: #### C BC ####[facility] Cpyxoyyocb4824[address] [place], [place] [address]DrJesse Hernandez Hemoglobin (Bld) [Mass/Vol] 8.3 g/dL Critically low 12.0-16.0 [facility] Comment on above: Performed By: #### C BC ####[facility] Uehvinbauk047[address] [place], [place] [address]DrJesse Hernandez IG # 0.07 10e3/ul Critically high 0.00-0.[address] [facility] Comment on above: Performed By: #### C BC ####[facility] Zvelmghfdo3123[address] [place], [place] [address]DrJesse Hernandez IG % 0.8 % Critically high 0.0-0.[address] [facility] Comment on above: Performed By: #### C BC ####[facility] Fysukuponr0006[address] [place], [place] [address]DrJesse Hernandez LYMPH # 0.6 103/ul Critically low 1.2-3.[address] [facility] Comment on above: Performed By: #### C BC ####[facility] Uowbqymzmo725[address] [place], [place] [address]DrJesse Hernandez Lymphocytes/100 WBC (Bld) 7.2 % Critically low 20.5-60.0 [facility] Comment on above: Performed By: #### C BC ####[facility] Wcwqvfpjim019[address] [place], [place] [address]DrJesse Hernandez MANUAL DIFF REQ NO Normal [facility] Comment on above: Performed By: #### C BC ####[facility] Nrghygimnb4359[address] [place], [place] [address]DrJesse Hernandez MCH (RBC) [Entitic mass] 29.5 pg Normal 26.7-34.0 [facility] Comment on above: Performed By: #### C BC ####[facility] Gdhswmwjoe6756[address] [place], [place] [address]DrJesse Hernandez MCHC (RBC) [Mass/Vol] 31.2 g/dL Normal 29.9-35.2 [facility] Comment on above: Performed By: #### C BC ####[facility] Sw[address]usgzppd[address] [place] [address]Dr. Ivette David MCV (RBC) [Entitic vol] 94.7 fL Normal 81.0-99.0 [facility] Comment on above: Performed By: #### C BC ####[facility] Extbhaoigm149[address] [place], [place] [address]DrJesse Hernanedz MONO # 0.6 103/ul Normal 0.3-0.8 [facility] Comment on above: Performed By: #### C BC ####[facility] Cvejvyytka9935[address] [place], [place] [address]Dr. Ivette Hernandez Monocytes/100 WBC (Bld) 6.8 % Normal 1.7-12.0 [facility] Comment on above: Performed By: #### C BC ####[facility] Pskouujtmg0153[address] [place], [place] [address]Dr. Ivette Hernandez NEUT # 7.4 103/ul Critically high 1.4-6.5 [facility] Comment on above: Performed By: #### C BC ####[facility] Fqdaajnovs254[address] [place], [place] [address]Dr. Ivette Hernandez Neutrophils/100 WBC (Bld) 85.1 % Critically high 43.0-75.0 [facility] Comment on above: Performed By: #### C BC ####[facility] Eduutegatx1337[address] [place], [place] [address]Dr. Ivette Hernandez Platelet mean volume (Bld) [Entitic vol] 9.5 fL Normal 9.5-13.5 [facility] Comment on above: Performed By: #### C BC ####[facility] Zliodgodhl378[address] [place], [place] [address]Dr. Ivette Hernandez PLT 227 103/ul Normal 150-450 [facility] Comment on above: Performed By: #### C BC ####[facility] Mcoqmkgwle4963[address] [place], [place] [address]Dr. Ivette Hernandez RBC 2.81 106/ul Critically low 4.20-5.40 [facility] Comment on above: Performed By: #### C BC ####[facility] [address]qk[address] [place] [id number]. Ivette Hernandez WBC 8.7 103/ul Normal 4.0-11.0 [facility] Comment on above: Performed By: #### C BC ####[facility] Tgdxbtrzya4[address] [place], [place] [id number] Ivette David BASO # 0.0 103/ul Normal 0.0-0.1 [facility] Comment on above: Performed By: #### C BC ####[facility] Xegdfkdzcq1607[address] [place], [place] [address]DrJesse Cherjun Hernandez Basophils/100 WBC (Bld) 0.0 % Critically low 0.2-2.0 [facility] Comment on above: Performed By: #### C BC ####[facility] Jqwkdaadbf3259[address] [place], [place] [address]DrJesse Ivette David EO # 0.0 103/ul Normal 0.0-0.7 [facility] Comment on above: Performed By: #### C BC ####[facility] Anbwtdmizm85[address] [place], [place] [id number] Cherjun Hernandez Eosinophils/100 WBC (Bld) 0.0 % Critically low 0.9-7.0 [facility] Comment on above: Performed By: #### C BC ####[facility] Hljxwtoaya6[address] [place], [place] [id number] Cherjun Hernandez Erythrocyte distribution width (RBC) [Ratio] 13.1 % Normal 11.0-15.0 [facility] Comment on above: Performed By: #### C BC ####[facility] Effocdofij05[address] [place], [place] [id number] Hernandez Hematocrit (Bld) [Volume fraction] 25.9 % Critically low 36.0-48.0 [facility] Comment on above: Performed By: #### C BC ####[facility] Pofhbsknap0770[address] [place], [place] [address]DrJesse Hernandez Hemoglobin (Bld) [Mass/Vol] 8.0 g/dL Critically low 12.0-16.0 [facility] Comment on above: Performed By: #### C BC ####[facility] K[address]ptgbtzo[address] [place] [address]DrJesse Hernandez IG # 0.06 10e3/ul Critically high 0.00-0.03 [facility] Comment on above: Performed By: #### C BC ####[facility] Vhbwonigws6153[address] [place], [place] [address]DrJesse Hernandez IG % 1.1 % Critically high 0.0-0.5 [facility] Comment on above: Performed By: #### C BC ####[facility] Eoyrjchodw5416[address] [place], [place] [address]DrJesse Hernandez LYMPH # 0.8 103/ul Critically low 1.2-3.8 [facility] Comment on above: Performed By: #### C BC ####[facility] Wivcgfzllt1336[address] [place], [place] [address]DrJesse Hernandez Lymphocytes/100 WBC (Bld) 14.8 % Critically low 20.5-60.0 [facility] Comment on above: Performed By: #### C BC ####[facility] Ghkacssrve5737[address] [place], [place] [address]DrJesse Hernandez MANUAL DIFF REQ NO Normal [facility] Comment on above: Performed By: #### C BC ####[facility] Ztzyjuypxe6526[address] [place], [place] [address]DrJesse Hernandez MCH (RBC) [Entitic mass] 29.7 pg Normal 26.7-34.0 [facility] Comment on above: Performed By: #### C BC ####[facility] Wssmllbngp6[address] [place], [place] [address]DrJesse Hernandez MCHC (RBC) [Mass/Vol] 30.9 g/dL Normal 29.9-35.2 [facility] Comment on above: Performed By: #### C BC ####[facility] Jddflrtvyh5506[address] [place], [place] [address]DrJesse Hernandez MCV (RBC) [Entitic vol] 96.3 fL Normal 81.0-99.0 [facility] Comment on above: Performed By: #### C BC ####[facility] Aylnptcfhp4280[address] [place] [address] Ivette Hernandez MONO # 0.1 103/ul Critically low 0.3-0.8 [facility] Comment on above: Performed By: #### C BC ####[facility] Qtuzvuohjq8129[address] [place], [place] [address]DrJesse Ivette David Monocytes/100 WBC (Bld) 2.0 % Normal 1.7-12.0 [facility] Comment on above: Performed By: #### C BC ####[facility] Oxodzsrtsx403[address] [place] [address] Ivette Hernandez NEUT # 4.5 103/ul Normal 1.4-6.5 [facility] Comment on above: Performed By: #### C BC ####[facility] Skttocenve9788[address] [place], [place] [address]DrJesse Ivette David Neutrophils/100 WBC (Bld) 82.1 % Critically high 43.0-75.0 [facility] Comment on above: Performed By: #### C BC ####[facility] Tuxanlwuzl6349[address] [place], [place] [address]DrJesse Ivette Hernandez Platelet mean volume (Bld) [Entitic vol] 9.4 fL Critically low 9.5-13.5 [facility] Comment on above: Performed By: #### C BC ####[facility] Nszeprrfrq8947[address] [place], [place] [address]DrJesse Ivette David PLT 224 103/ul Normal 150-450 [facility] Comment on above: Performed By: #### C BC ####[facility] Ezbuohnkys2037[address] [place] [address] Cherjun Hernandez RBC 2.69 106/ul Critically low 4.20-5.40 [facility] Comment on above: Performed By: #### C BC ####[facility] Pslukakusk6438[address] [place], [place] [address]Dr. Ivette Hernandez WBC 5.5 103/ul Normal 4.0-11.[address] [facility] Comment on above: Performed By: #### C BC ####[facility] Bakvrrqncm088[address] [place], [place] [address]Dr. Ivette Hernandez CULTURE SPUTUMon 09-07-2022 CULTURE SPUTUM Isolate 1 Carolee albicans Moderate growth of Normal [facility] Comment on above: Performed By: #### S PUTCX ####[facility] Pymmzpuvru[address] [place], [place] [address]Dr. Ivette Hernandez ECHOCARDIO M/2D COMPLETEon 0 09-07-2022 ECHOCARDIO M/2D COMPLETE Normal [facility] PRBC LEUKOREDUCEDon 09-08-19 PRBC LEUKOREDUCED Normal [facility] Comment on above: Performed By: #### P RBC ####[facility] Dflsmlzggx8143[address] [place], [place] [address]Dr. Ivette Hernandez PROF 14(COMP METB)on 023 Albumin [Mass/Vol] 2.4 g/dL Critically low 3.4-5.0 [facility] Comment on above: Performed By: #### C MP, BNP ####[facility] Mcivpupmvz[address] [place], [place] [address]Dr. Ivette Hernandez Albumin/Globulin [Mass ratio] 0.5 {ratio} Normal [facility] Comment on above: Performed By: #### C MP, BNP ####[facility] Icuwawlgen[address] [place] [address]Dr. Ivette Hernandez ALP [Catalytic activity/Vol] 75 U/L Normal 46-[address] [facility] Comment on above: Performed By: #### C MP, BNP ####[facility] Qjuewmxeus[address] [place] [address]Dr. Ivette Hernandez ALT [Catalytic activity/Vol] 17 U/L Normal 14-[address] [facility] Comment on above: Performed By: #### C MP, BNP ####[facility] Bquiuwpkyf26[address] [place] [address]Dr. Ivette Hernandez Anion gap [Moles/Vol] 11.3 mmol/L Normal [facility] Comment on above: Performed By: #### C MP, BNP ####[facility] Twfksjyfjg7[address] [place] [address]Dr. Ivette Hernandez AST [Catalytic activity/Vol] 15 U/L Normal 15-[address] [facility] Comment on above: Performed By: #### C MP, BNP ####[facility] Nljhcbbram[address] [place] [address]Dr. Ivette Hernandez Bilirubin [Mass/Vol] 0.3 mg/dL Normal 0.2-1.[address] [facility] Comment on above: Performed By: #### C MP, BNP ####[facility] Jihveubujy2049[address] [place], [place] [address]Dr. Ivette Hernandez Calcium [Mass/Vol] 7.9 mg/dL Critically low 8.5-10.1 [facility] Comment on above: Performed By: #### C MP, BNP ####[facility] Edysznidtp474[address] [place], [place] [address]Dr. Ivette Hernandez Chloride [Moles/Vol] 104 mmol/L Normal 98-[address] [facility] Comment on above: Performed By: #### C MP, BNP ####[facility] Lrcxqsqucz5249[address] [place], [place] [address]Dr. Ivette Hernandez CO2 [Moles/Vol] 33.3 mmol/L Critically high 21.0-32.[address] [facility] Comment on above: Performed By: #### C MP, BNP ####[facility] Ljapxtjtbx5364[address] [place], [place] [address]Dr. Ivette Hernandez Creatinine [Mass/Vol] 1.68 mg/dL Critically high 0.55-1.[address] [facility] Comment on above: Performed By: #### C MP, BNP ####[facility] Skcbbqqodt4564[address] [place], [place] [address]Dr. Ivette Hernandez EGFR-AF AUSTRALIAN 36 mL/min/1.73m2 Critically low >=60 [facility] Comment on above: Performed By: #### C MP, BNP ####[facility] Xzowbylyfc6368[address] [place], [place] [address]Dr. Ivette Hernandez EGFR-NON AF AUSTRALIAN 30 mL/min/1.73m2 Critically low >=60 [facility] Comment on above: Performed By: #### C MP, BNP ####[facility] Yphuewrzpb0634[address] [place], [place] [address]Dr. Ivette Hernandez Globulin (S) [Mass/Vol] 4.5 g/dL Normal [facility] Comment on above: Performed By: #### C MP, BNP ####[facility] Yhvyivaoaf2677[address] [place], [place] [address]Dr. Ivette Hernandez Glucose [Mass/Vol] 203 mg/dL Critically high 74-106 T [facility] Comment on above: Performed By: #### C MP, BNP ####[facility] Tsaifppotd8874[address] [place], [place] [address]Dr. Ivette Hernandez Potassium [Moles/Vol] 4.6 mmol/L Normal 3.5-5.1 [facility] Comment on above: Performed By: #### C MP, BNP ####[facility] Msrblcedxv9810[address] [place], [place] [address]Dr. Ivette Hernandez Protein [Mass/Vol] 6.9 g/dL Normal 6.4-8.2 [facility] Comment on above: Performed By: #### C MP, BNP ####[facility] Ruxfzjpelh4413[address] [place], [place] [address]Dr. Ivette Hernandez Sodium [Moles/Vol] 144 mmol/L Normal 136-[address] [facility] Comment on above: Performed By: #### C MP, BNP ####[facility] Szhfrvszqs707[address] [place], [place] [address]Dr. Ivette Hernandez Urea nitrogen [Mass/Vol] 33.0 mg/dL Critically high 7.0-18.0 [facility] Comment on above: Performed By: #### C MP, BNP ####[facility] Cdxdizuijm1696[address] [place], [place] [address]Dr. Ivette Hernandez Urea nitrogen/Creatinine [Mass ratio] 19.6 mg/mg Normal [facility] Comment on above: Performed By: #### C MP, BNP ####[facility] Rqlhiqcdxz0605[address] [place], [place] [address]Dr. Ivette Hernandez SPUTUM GRAM STAINon 09-08-19 COMMENTS Normal [facility] Comment on above: Performed By: #### S PUTGS ####[facility] Cgupfgygyx7668[address] [place], [place] [address]Dr. Ivette Hernandez DIPHTHEROIDS Normal [facility] Comment on above: Performed By: #### S PUTGS ####[facility] Gmrqfwraab5701[address] [place], [place] [address]Dr. Ivette Hernandez EPITHELIALS <25 Normal [facility] Comment on above: Performed By: #### S PUTGS ####[facility] Fmdyvtjeiz[address] [place], [place] [address]Dr. Ivette Hernandez FUNGAL ELEMENTS FEW Normal [facility] Comment on above: Performed By: #### S PUTGS ####[facility] Zdahrmrjap40[address] [place], [place] [address]Dr. Ivette Hernandez GRAM NEG BACILLI Normal [facility] Comment on above: Performed By: #### S PUTGS ####[facility] Cwvfgdsorn64[address] [place], [place] [address]Dr. Ivette Hernandez GRAM NEG DIPPLOCOCCI Normal [facility] Comment on above: Performed By: #### S PUTGS ####[facility] Cwqancupot[address] [place], [place] [address]Dr. Ivette Hernandez GRAM POS BACILLI Normal [facility] Comment on above: Performed By: #### S PUTGS ####[facility] Txcajmsefm2087[address] [place], [place] [address]Dr. Ivette Hernandez GRAM POSITIVE COCCI Normal [facility] Comment on above: Performed By: #### S PUTGS ####[facility] Ipmdegdfcs6144[address] [place], [place] [address]Dr. Ivette Hernandez WBC (Bld) [#/Vol] 10*3/uL Normal [facility] Comment on above: Performed By: #### S PUTGS ####[facility] Lpzcjnloze4576[address] [place], [place] [address]Dr. Ivette Hernandez TYPE AND SCREENon 09-07-2022 TYPE AND SCREEN Negative Normal [facility] Comment on above: Performed By: #### T NS ####[facility] [address]hyf[address] [place] [address]Dr. Ivette Hernandez BNPon 09-06-2022 Natriuretic peptide B (Bld) [Mass/Vol] 97865.0 pg/mL Critically high <=900.[address] [facility] Comment on above: Performed By: #### B MAGAZINE WORKER, HSTROPN, LIPA, CMP ####[facility] G[address]egtxas[address] [place] [address]Dr. Ivette Hernandez CARDIAC CANDACE ADMITon 023 CK [Catalytic activity/Vol] 73 U/L Normal 26-192 [facility] Comment on above: Performed By: #### C RODDY, MG ####[facility] Sotiwhapqp[address] [place] [address]Dr. Ivette Hernandez CK.MB [Mass/Vol] 1.68 ng/mL Normal <=3.60 [facility] Comment on above: Performed By: #### C RODDY, MG ####[facility] Dcedrrspzh37[address] [place], [place] [address]Dr. Ivette Hernandez HSTROP 14.7 pg/mL Normal 4.0-51.3 [facility] Comment on above: Result Comment: CUT- OFF POINTS HAVE BEEN ESTABLISHED BASED ON THE FOURTH UNIVERSAL DEFINITIONS OF MYOCARDIALINFARCTION. THE UPPER REFERENCE LIMIT (URL) OF TROPONIN, DEFINED THE 99TH PERCENTILE OFcTnI DISTRIBUTION IN A REFERENCE POPULATION, HAS BEEN CONFIRMED THE DECISION THRESHOLDFOR ID DIAGNOSIS. Performed By: #### C MADM, MG ####[facility] Vaodbapvxe0[address] [place], [place] [address]Dr. Ivette Hernandez CARMITA 151 ng/mL Critically high 9-82 [facility] Comment on above: Performed By: #### C MADM, MG ####[facility] [address]duy[address] [place] [address]Dr. Ivette Hernandez CBC AUTO DIFFon 09-06-2022 BASO # 0.0 103/ul Normal 0.0-0.1 [facility] Comment on above: Performed By: #### C BC ####[facility] Qdzltwvpwd[address] [place] [address]Dr. Ivette Hernandez Basophils/100 WBC (Bld) 0.4 % Normal 0.2-2.0 [facility] Comment on above: Performed By: #### C BC ####[facility] Finnmolywz[address] [place], [place] [address]Dr. Ivette Hernandez EO # 0.1 103/ul Normal 0.0-0.7 [facility] Comment on above: Performed By: #### C BC ####[facility] Eobxfxewuz87[address] [place], [place] [address]Dr. Ivette Hernandez Eosinophils/100 WBC (Bld) 1.5 % Normal 0.9-7.0 [facility] Comment on above: Performed By: #### C BC ####[facility] Snxhjsrhim18[address] [place], [place] [address]Dr. Ivette Hernandez Erythrocyte distribution width (RBC) [Ratio] 13.1 % Normal 11.0-15.0 [facility] Comment on above: Performed By: #### C BC ####[facility] Crxvvtxues7224[address] [place], [place] [address]Dr. Ivette Hernandez Hematocrit (Bld) [Volume fraction] 26.8 % Critically low 36.0-48.0 [facility] Comment on above: Performed By: #### C BC ####[facility] Lrhjahhtjv3236[address] [place], [place] [address]Dr. Ivette Hernandez Hemoglobin (Bld) [Mass/Vol] 8.4 g/dL Critically low 12.0-16.0 [facility] Comment on above: Performed By: #### C BC ####[facility] Iqfsfgpyhm5[address] [place], [place] [address]Dr. Ivette Hernandez IG # 0.05 10e3/ul Critically high 0.00-0.03 [facility] Comment on above: Performed By: #### C BC ####[facility] Vccykmugmh[address] [place], [place] [address]Dr. Ivette Hernandez IG % 0.5 % Normal 0.0-0.5 [facility] Comment on above: Performed By: #### C BC ####[facility] [address] [place] [id number]. Ivette David LYMPH # 1.6 103/ul Normal 1.2-3.8 [facility] Comment on above: Performed By: #### C BC ####[facility] [address] [place] [address]Dr. Ivette David Lymphocytes/100 WBC (Bld) 17.1 % Critically low 20.5-60.0 [facility] Comment on above: Performed By: #### C BC ####[facility] Ofdbbyefot[address] [place] [address]Dr. Cherjun Hernandez MANUAL DIFF REQ NO Normal [facility] Comment on above: Performed By: #### C BC ####[facility] [address]ft[address]ktfs[address] [place] [address]Dr. Ivette David MCH (RBC) [Entitic mass] 30.1 pg Normal 26.7-34.0 [facility] Comment on above: Performed By: #### C BC ####[facility] [address]sc[address] [place], [place] [address]Dr. Ivette David MCHC (RBC) [Mass/Vol] 31.3 g/dL Normal 29.9-35.2 [facility] Comment on above: Performed By: #### C BC ####[facility] [address]xq[address] [place], [place] [address]Dr. Cherjun Hernandez MCV (RBC) [Entitic vol] 96.1 fL Normal 81.0-99.0 [facility] Comment on above: Performed By: #### C BC ####[facility] Iie[address] [place], [place] [address]Dr. Ivette David MONO # 0.5 103/ul Normal 0.3-0.8 [facility] Comment on above: Performed By: #### C BC ####[facility] [address] [place], [place] [address]Dr. Cherjun Hernandez Monocytes/100 WBC (Bld) 5.3 % Normal 1.7-12.0 [facility] Comment on above: Performed By: #### C BC ####[facility] [address]ks[address]mt[address] [place], [place] [address]Dr. Ivette Hernandez NEUT # 7.0 103/ul Critically high 1.4-6.5 [facility] Comment on above: Performed By: #### C BC ####[facility] [address]ybcccxr[address] [place] [address]Dr. Ivette Hernandez Neutrophils/100 WBC (Bld) 75.2 % Critically high 43.0-75.[address] [facility] Comment on above: Performed By: #### C BC ####[facility] [address]yerssx[address] [place] [address]Dr. Ivette Hernandez Platelet mean volume (Bld) [Entitic vol] 9.5 fL Normal 9.5-13.5 [facility] Comment on above: Performed By: #### C BC ####[facility] Htiwtgzxkr[address] [place] [address]Dr. Ivette Hernandez PLT 257 103/ul Normal 150-450 [facility] Comment on above: Performed By: #### C BC ####[facility] [address] [place], [place] [address]Dr. Ivette Hernandez RBC 2.79 106/ul Critically low 4.20-5.40 [facility] Comment on above: Performed By: #### C BC ####[facility] [address] [place], [place] [address]Dr. Ivette Hernandez WBC 9.3 103/ul Normal 4.0-11.0 [facility] Comment on above: Performed By: #### C BC ####[facility] [address] [place], [place] [address]Dr. Ivette Hernandez CULTURE BLOODon 09-06-2022 Microscopic examination of blood, culture Culture Observations: NO GROWTH AT 5 DAYS. Normal [facility] Comment on above: Performed By: #### B LDCX2 ####[facility] Xtviz[address] [place], [place] [address]Dr. Ivette Hernandez Microscopic examination of blood, culture Culture Observations: NO GROWTH AT 5 DAYS. Normal [facility] Comment on above: Performed By: #### B LDCX1 ####[facility] [address] [place], [place] [address]Dr. Ivette Hernandez CULTURE URINEon 09-06-2022 CULTURE URINE Culture Observations : LIGHT GROWTH OF MIXED GENITAL BOB. NO POTENTIAL PATHOGENS SEEN. Normal [facility] Comment on above: Performed By: #### U RCX ####[facility] [address] [place] [id number]. Ivette Hernandez Covid-19 PCR ([facility])on SARS-CoV-2 (COVID-19) RNA MARRY+probe Ql (Unsp spec) Not detected Normal NOT DETECTED [facility] Comment on above: Result Comment: This test is not yet approved or cleared by the [place] FDA. When there are no FDA-approved or cleared tests available, and other criteria are met, FDA can make tests available under an emergency access mechanism called an Emergency Use Authorization (EUA). The EUA for this test is supported by the [place] of Health and Human Service's (HHS's) declaration that circumstances exist to justify the emergency use of in vitro diagnostics for the detection and/or diagnosis of the virus that causes COVID-19. This EUA will remain in effect (meaning this test can be used) for the duration of the COVID-19 declaration justifying emergency of IVDs, unless it is terminated or revoked by FDA (after which the test may no longer be used).When diagnostic testing is negative, the possibility of a false negative should be considered inthe context of a patient's recent exposures and the presence of clinical signs and symptomsconsistent with SARS-CoV-2. Performed By: #### C VDTBH ####[facility] [address] [place] [address]Dr. Ivette Hernandez LACTATE/LACTIC ACIDon 2022 Lactate [Moles/Vol] 0.6 mmol/L Normal 0.4-2.0 [facility] Comment on above: Performed By: #### L ACT ####[facility] [address] [place] [id number]. Ivette Hernandez Lactate [Moles/Vol] 0.8 mmol/L Normal 0.4-2.0 [facility] Comment on above: Performed By: #### L ACT ####[facility] [address]uer[address] [place] [address]Dr. Ivette Hernandez LIPASEon 09-06-2022 Lipase [Catalytic activity/Vol] 157.0 U/L Normal 73.0-393.[address] [facility] Comment on above: Performed By: #### B MAGAZINE WORKER, HSTROPN, LIPA, CMP ####[facility] [address]qs[address] [place] [address]Dr. Ivette Hernandez MAGNESIUMon 09-06-2022 Magnesium [Mass/Vol] 1.6 mg/dL Critically low 1.8-2.[address] [facility] Comment on above: Performed By: #### C MADM, MG ####[facility] [address] [place] [address]Dr. Ivette Hernandez PROF 14(COMP METB)on 023 Albumin [Mass/Vol] 2.5 g/dL Critically low 3.4-5.0 [facility] Comment on above: Performed By: #### B MAGAZINE WORKER, HSTROPN, LIPA, CMP ####[facility] Untd[address]zj[address] [place], [place] [address]Dr. Ivette Hernandez Albumin/Globulin [Mass ratio] 0.5 {ratio} Normal [facility] Comment on above: Performed By: #### B MAGAZINE WORKER, HSTROPN, LIPA, CMP ####[facility] [address]xtqpct[address] [place] [address]Dr. Ivette Hernandez ALP [Catalytic activity/Vol] 85 U/L Normal 46-116 [facility] Comment on above: Performed By: #### B MAGAZINE WORKER, HSTROPN, LIPA, CMP ####[facility] [address]hw[address] [place] [address]Dr. Ivette Hernandez ALT [Catalytic activity/Vol] 18 U/L Normal 14-[address] [facility] Comment on above: Performed By: #### B MAGAZINE WORKER, HSTROPN, LIPA, CMP ####[facility] [address]ftlbatja[address] [place] [address]Dr. Ivette Hernandez Anion gap [Moles/Vol] 9.1 mmol/L Normal [facility] Comment on above: Performed By: #### B MAGAZINE WORKER, HSTROPN, LIPA, CMP ####[facility] [address]ugp[address] [place] [address]Dr. Ivette Hernandez AST [Catalytic activity/Vol] 18 U/L Normal 15-37 [facility] Comment on above: Performed By: #### B MAGAZINE WORKER, HSTROPN, LIPA, CMP ####[facility] [address]ceey[address] [place] [address]Dr. Ivette Hernandez Bilirubin [Mass/Vol] 0.5 mg/dL Normal 0.2-1.[address] [facility] Comment on above: Performed By: #### B MAGAZINE WORKER, HSTROPN, LIPA, CMP ####[facility] [address]es[address] [place], [place] [address]Dr. Ivette Hernandez Calcium [Mass/Vol] 7.8 mg/dL Critically low 8.5-10.1 [facility] Comment on above: Performed By: #### B MAGAZINE WORKER, HSTROPN, LIPA, CMP ####[facility] [address]yt[address] [place], [place] [address]Dr. Ivette Hernandez Chloride [Moles/Vol] 103 mmol/L Normal 98-107 [facility] Comment on above: Performed By: #### B MAGAZINE WORKER, HSTROPN, LIPA, CMP ####[facility] [address]weuyyzzbx[address] [place], [place] [address]Dr. Ivette Hernandez CO2 [Moles/Vol] 32.8 mmol/L Critically high 21.0-32.0 [facility] Comment on above: Performed By: #### B MAGAZINE WORKER, HSTROPN, LIPA, CMP ####[facility] Rollkrfpwz[address] [place] [address]Dr. Ivette Hernandez Creatinine [Mass/Vol] 1.79 mg/dL Critically high 0.55-1.[address] [facility] Comment on above: Performed By: #### B MAGAZINE WORKER, HSTROPN, LIPA, CMP ####[facility] Qjhcoqevtk[address] [place] [address]Dr. Ivette Hernandez EGFR-AF AUSTRALIAN 34 mL/min/1.73m2 Critically low >=60 [facility] Comment on above: Performed By: #### B MAGAZINE WORKER, HSTROPN, LIPA, CMP ####[facility] [address] [place] [address]Dr. Ivette Hernandez EGFR-NON AF AUSTRALIAN 28 mL/min/1.73m2 Critically low >=[address] [facility] Comment on above: Performed By: #### B MAGAZINE WORKER, HSTROPN, LIPA, CMP ####[facility] [address]btesu[address] [place] [address]Dr. Ivette Hernandez Globulin (S) [Mass/Vol] 4.6 g/dL Normal [facility] Comment on above: Performed By: #### B MAGAZINE WORKER, HSTROPN, LIPA, CMP ####[facility] [address]so[address] [place], [place] [address]Dr. Ivette Hernandez Glucose [Mass/Vol] 170 mg/dL Critically high 74-106 [facility] Comment on above: Performed By: #### B MAGAZINE WORKER, HSTROPN, LIPA, CMP ####[facility] Weunixwete[address] [place], [place] [address]Dr. Ivette Hernandez Potassium [Moles/Vol] 3.9 mmol/L Normal 3.5-5.1 [facility] Comment on above: Performed By: #### B MAGAZINE WORKER, HSTROPN, LIPA, CMP ####[facility] Ztcs[address]azspa[address] [place] [address]Dr. Ivette Hernandez Protein [Mass/Vol] 7.1 g/dL Normal 6.4-8.2 [facility] Comment on above: Performed By: #### B MAGAZINE WORKER, HSTROPN, LIPA, CMP ####[facility] Uhazqffjkx[address] [place], [place] [address]Dr. Ivette Hernandez Sodium [Moles/Vol] 141 mmol/L Normal 136-145 [facility] Comment on above: Performed By: #### B MAGAZINE WORKER, HSTROPN, LIPA, CMP ####[facility] Ddtvzotdku[address] [place] [address]Dr. Ivette Hernandez Urea nitrogen [Mass/Vol] 31.0 mg/dL Critically high 7.0-18.[address] [facility] Comment on above: Performed By: #### B MAGAZINE WORKER, HSTROPN, LIPA, CMP ####[facility] Bcsbcqznpz[address] [place] [address]Dr. Ivette Hernandez Urea nitrogen/Creatinine [Mass ratio] 17.3 mg/mg Normal [facility] Comment on above: Performed By: #### B MAGAZINE WORKER, HSTROPN, LIPA, CMP ####[facility] [address]bsjddypfx[address] [place] [address]Dr. Ivette Hernandez PROTIMEon 09-06-2022 INR Coag (PPP) [Relative time] 1.13 {INR} Normal [facility] Comment on above: Performed By: #### P TT, PT ####[facility] B[address]pt[address] [place], [place] [address]Dr. Ivette Hernandez INR GUIDELINES SEE BELOW Normal [facility] Comment on above: Result Comment: MELANIE RED INR: 2.0 - 3.0 CONDITIONS NOT LISTED BELOW 2.5 - 3.5 FOR PROSTHETIC HEART VALVE REPLACEMENT 2.5 - 3.5 RECURRENT THROMBOSIS Performed By: #### P TT, PT ####[facility] E[address]pr[address]lasz[address] [place], [place] [address]Dr. Ivette Hernandez PT Coag (PPP) [Time] 11.9 s Critically high 9.0-11.6 [facility] Comment on above: Performed By: #### P TT, PT ####[facility] R[address]cyxtj[address] [place], [place] [address]Dr. Ivette Hernandez PTTon 09-06-2022 aPTT Coag (Bld) [Time] 29.6 s Normal 22.3-36.2 [facility] Comment on above: Performed By: #### P TT, PT ####[facility] [address]cc[address]cc[address] [place], [place] [address]DrJesse Hernandez SYMPTOMATIC COVID-19 ANTIGEN on 09-06-2022 EUA Statement SEE BELOW Normal [facility] Comment on above: Result Comment: This test has not been FDA cleared or approved, but has been authorized by the FDA under an Emergency Use Authorization (EUA) for use by authorized laboratories certified under CLIA that meet the requirements to perform moderate or high complexity testing. This test has been authorized only for the detection of proteins from SARS-CoV-2, not for any other viruses or pathogens. The emergency use of this test is authorized for the duration of the declaration that circumstances exist justifying the authorization of emergency use of in vitro diagnostic tests for detection and/or diagnosis of Covid-19 under section 564(b)(1) of the Act, 21 U.S.C. 360bbb-3(b)(1), unless the declaration is terminated or authorization is revoked sooner. Performed By: #### C VDAGS ####[facility] X[address]mpnp[address] [place] [address]Dr. Ivette Hernandez SARS-CoV-2 (COVID-19) RNA MARRY+probe Ql (Unsp spec) Negative Normal NEGATIVE [facility] Comment on above: Performed By: #### C VDAGS ####[facility] Ousepwebnp[address] [place], [place] [address]Dr. Ivette Hernandez TROPONIN, HIGH SENSITIVITYon 09-06-2022 HSTROP 13.1 pg/mL Normal 4.0-51.3 [facility] Comment on above: Result Comment: CUT- OFF POINTS HAVE BEEN ESTABLISHED BASED ON THE FOURTH UNIVERSAL DEFINITIONS OF MYOCARDIALINFARCTION. THE UPPER REFERENCE LIMIT (URL) OF TROPONIN, DEFINED THE 99TH PERCENTILE OFcTnI DISTRIBUTION IN A REFERENCE POPULATION, HAS BEEN CONFIRMED THE DECISION THRESHOLDFOR ID DIAGNOSIS. Performed By: #### B MAGAZINE WORKER, HSTROPN, LIPA, CMP ####[facility] [address]row[address] [place] [id number]. Ivette Hernandez UA RANDOM W/MICROSCOPICon BACTERIA SMALL Abnormal NONE SEEN [facility] Comment on above: Performed By: #### U AMIC ####[facility] [address] [place] [id number] Hernandez Bilirubin Ql (U) Negative Normal NEGATIVE [facility] Comment on above: Performed By: #### U AMIC ####[facility] [address] [place] [id number] Hernandez CAST NONE SEEN Normal NONE SEEN [facility] Comment on above: Performed By: #### U AMIC ####[facility] [address] [place] [address]Dr. Ivette Hernandez Clarity (U) CLEAR Normal CLEAR [facility] Comment on above: Performed By: #### U AMIC ####[facility] Py[address]dtfur[address] [place] [address]Dr. Ivette Hernandez Color (U) LT. YELLOW Normal YELLOW [facility] Comment on above: Performed By: #### U AMIC ####[facility] [address]att[address] [place] [address]Dr. Ivette Hernandez Crystals LM Nom (Urine sed) NONE SEEN Normal NONE SEEN [facility] Comment on above: Performed By: #### U AMIC ####[facility] Ubfpjxocpu[address] [place] [address]Dr. Ivette Hernandez Epithelial cells LM Ql (Urine sed) FEW Abnormal NONE SEEN /RARE [facility] Comment on above: Performed By: #### U AMIC ####[facility] Dat[address] [place], [place] [address]Dr. Ivette Hernandez Glucose Ql (U) Negative Normal NEGATIVE [facility] Comment on above: Performed By: #### U AMIC ####[facility] [address]hb[address]or[address] [place], [place] [address]Dr. Ivette Hernandez Hemoglobin Ql (U) SMALL Abnormal NEGATIVE [facility] Comment on above: Performed By: #### U AMIC ####[facility] Quxljrhynl[address] [place], [place] [address]Dr. Ivette Hernandez Ketones Ql (U) Negative Normal NEGATIVE [facility] Comment on above: Performed By: #### U AMIC ####[facility] [address] [place], [place] [address]Dr. Ivette Hernandez LEUKOCYTES TRACE Abnormal NEGATIVE [facility] Comment on above: Performed By: #### U AMIC ####[facility] Sol[address]gtqwjh[address] [place] [address]Dr. Cherlan Hernandez MUCOUS NONE SEEN Normal NONE SEEN [facility] Comment on above: Performed By: #### U AMIC ####[facility] [address]ossqkpn[address] [place] [address]Dr. Ivette Hernandez Nitrite Ql (U) Negative Normal NEGATIVE [facility] Comment on above: Performed By: #### U AMIC ####[facility] G[address]meajyyp[address] [place] [address]Dr. Ivette Hernandez pH (U) 7.5 [pH] Normal 5-9 [facility] Comment on above: Performed By: #### U AMIC ####[facility] [address]pmxsqftd[address] [place] [address]Dr. Ivette Hernandez RBC 0-2 Normal 0-2 [facility] Comment on above: Performed By: #### U AMIC ####[facility] Rvvdlxpttm[address] [place] [address]Dr. Ivette Hernandez SPEC GRAVITY 1.020 Normal 1.005-<=1.025 [facility] Comment on above: Performed By: #### U AMIC ####[facility] [address]ft[address] [place], [place] [address]Dr. Ivette Hernandez UA PROTEIN 300 mg/dl Abnormal NEGATIVE/ TRACE [facility] Comment on above: Performed By: #### U AMIC ####[facility] Qphwrkject[address] [place], [place] [address]Dr. Ivette David Urobilinogen Qn (U) 0.2 {Mack'U}/dL Normal 0.2 - 1. 0 [facility] Comment on above: Performed By: #### U AMIC ####[facility] [address] [place], [place] [address]Dr. Ivette Hernandez WBC 5-10 Abnormal NONE SEEN [facility] Comment on above: Performed By: #### U AMIC ####[facility] [address]vi[address] [place], [place] [address]Dr. Ivette Hernandez XR CHEST 1 Von 09-06-2022 XR CHEST 1 V Normal [facility] Patient Educationon 07-30-19 Patient Education Nutrition Calorie Counting for Weight Loss Calories are units of energy. Your body needs a certain amount of calories from food to keep you going throughout the day. When you eat more calories than your body needs, your body stores the extra calories as fat. When you eat fewer calories than your body needs, your body [place] fat to get the energy it needs. Calorie counting means keeping track of how many calories you eat and drink each day. Calorie counting can be helpful if you need to lose weight. If you make sure to eat fewer calories than your body needs, you should lose weight. Ask your health care provider what a healthy weight is for you. For calorie counting to work, you will need to eat the right number of calories in a day in order to lose a healthy amount of weight per week. A dietitian can help you determine how many calories you need in a day and will give you suggestions on how to reach your calorie goal. ? A healthy amount of weight to lose per week is usually 1?2 lb (0.5?0.9 kg). This usually means that your daily calorie intake should be reduced by 500?750 calories. ? Eating 1,200 ? 1,500 calories per day can help most women lose weight. ? Eating 1,500 ? 1,800 calories per day can help most men lose weight. What is my plan? My goal is to have calories per day. If I have this many calories per day, I should lose around pounds per week. What do I need to know about calorie counting? In order to meet your daily calorie goal, you will need to: ? Find out how many calories are in each food you would like to eat. Try to do this before you eat. ? Decide how much of the food you plan to eat. ? Write down what you ate and how many calories it had. Doing this is called keeping a food log. To successfully lose weight, it is important to balance calorie counting with a healthy lifestyle that includes regular activity. Aim for 150 minutes of moderate exercise (such as walking) or 75 minutes of vigorous exercise (such as running) each week. Where do I find calorie information? The number of calories in a food can be found on a Nutrition Facts label. If a food does not have a Nutrition Facts label, try to look up the calories online or ask your dietitian for help. Remember that calories are listed per serving. If you choose to have more than one serving of a food, you will have to multiply the calories per serving by the amount of servings you plan to eat. For example, the label on a package of bread might say that a serving size is 1 slice and that there are 90 calories in a serving. If you eat 1 slice, you will have eaten 90 calories. If you eat 2 slices, you will have eaten 180 calories. How do I keep a food log? Immediately after each meal, record the following information in your food log: ? What you ate. Don't forget to include toppings, sauces, and other extras on the food. ? How much you ate. This can be measured in cups, ounces, or number of items. ? How many calories each food and drink had. ? The total number of calories in the meal. Keep your food log near you, such as in a small notebook in your pocket, or use a mobile anuradha or website. Some programs will calculate calories for you and show you how many calories you have left for the day to meet your goal. What are some calorie counting tips? ? Use your calories on foods and drinks that will fill you up and not leave you hungry: ? Some examples of foods that fill you up are nuts and nut butters, vegetables, lean proteins, and high-fiber foods like whole grains. High-fiber foods are foods with more than 5 g fiber per serving. ? Drinks such as sodas, specialty coffee drinks, alcohol, and juices have a lot of calories, yet do not fill you up. ? Eat nutritious foods and avoid empty calories. Empty calories are calories you get from foods or beverages that do not have many vitamins or protein, such as candy, sweets, and soda. It is better to have a nutritious high-calorie food (such as an avocado) than a food with few nutrients (such as a bag of chips). ? Know how many calories are in the foods you eat most often. This will help you calculate calorie counts faster. ? Pay attention to calories in drinks. Low-calorie drinks include water and unsweetened drinks. ? Pay attention to nutrition labels for low fat or fat free foods. These foods sometimes have the same amount of calories or more calories than the full fat versions. They also often have added sugar, starch, or salt, to make up for flavor that was removed with the fat. ? Find a way of tracking calories that works for you. Get creative. Try different apps or programs if writing down calories does not work for you. What are some portion control tips? ? Know how many calories are in a serving. This will help you know how many servings of a certain food you can have. ? Use a measuring cup to measure serving sizes. You could (more content not included)... Normal [facility] Urology Office/Clinic Noteon 07-29-2022 Urology Office/Clinic Note Chief Complaint Pt is here for 1 month f/u w/ labs HPI Staff Martin is a 71 y.o. female here to review labs for adrenal labs. Previous Dx: acute cystitis, adrenal mass, asymptomatic microscopic hematuria, urethral stricture, renal cyst, renal mass. S/P cystoscopy done on 12/02/20. Cortisol AM 06/15/22- 2.7 (6.2-19.4), Aldosterone/Renin Ratio 06/15/22- 12.0 (0.0-30.0), Normetanephrine 06/15/22-67.2 (0.0-285.2), Metanephrine 06/15/22- 16.5 (0.0-88.0). PVR at time of last encounter 350ml-Catheter was inserted. C&S also done at time of last encounter. Tx'd w/Bactrim 400mg -80 mg (not DS) q12h x 3 weeks. Catheter was then removed in our office 07/08/22 (after finished abx script). Pt was unable to give urine sample. Dysuria: denies Incomplete bladder emptying: denies Hematuria: denies Frequency: yes w/ fluid intake Urgency: denies Nocturia: 2x a night Stream: steady stream Leaking: yes Post void dripping: denies Wearing pads/ Depends: yes wears depends and changes 2x a day Urge incontinence: yes Stress incontinence: denies Incontinence without Sensory Awareness: denies Abdominal pain: denies Flank pain: denies Sexual complaints: _ History of Present Illness Pt is here to follow up on Adrenal labs due to Adrenal Mass. Reviewed Labs. Pt has no associated symptoms, no fever, no chills, no flank pain. I have reviewed the previous health record information and history for this patient from Dr. Michael Review of Systems PHQ Score Initial Depression Screen Score: 0 ROS - Provider Constitutional: denies weight loss, denies hot flashes. Eyes: denies eye problems. Gastrointestinal: denies nausea, denies vomiting. Cardiovascular: denies chest pain or angina. Integumentary: no dryness Musculoskeletal: denies musculoskeletal symptoms. ENMT: denies otolaryngeal symptoms. Respiratory: no shortness of breath. Heme/Lymph: denies easy bleeding tendency, denies easy bruising tendency. Psychiatric: no confusion, no anxiety. Genitourinary: see HPI Physical Exam Vitals & Measurements HR: 66(Peripheral) BP: 131/89 HT: 61 in HT: 154 cm WT: 86 kg WT: 189.2 lb BMI: 36.26 General Appearance: alert , no acute distress, well nourished, well developed female. On O2 via nasal cannula Genitourinary: bladder nonpalpable, no flank pain. Assessment/Plan Will return for follow up 6 months 1. Adrenal mass (E27.8: Other specified disorders of adrenal gland) Adrenal Labs Cortisol AM 06/15/22- 2.7 (6.2-19.4), Aldosterone/Renin Ratio 06/15/22- 12.0 (0.0-30.0), Normetanephrine 06/15/22-67.2 (0.0-285.2), Metanephrine 06/15/22- 16.5 (0.0-88.0) CT AP w/wo con done 01/09/21 shows stable adrenal mass on right side at 4.2 cm and Left side 2.[address] AP wo con done 05/05/22 shows stable 4.3 x 3.5 cm slightly heterogenous right adrenal mass with a few tiny areas of fat density suggestive of a benign adenoma. Stable left adrenal mass 2.5 x 1.9 cm without appreciable fat density. -No further workup at this time given stability and metabolic workup wnl 2. Urinary retention (R33.9: Retention of urine, unspecified) s/p martinez for 350 ml and air in bladder on recent CT scan Pt states that she is urinating well, voiding more often She is stating that her urine is kind of foaming, UA with protein Pt is encouraged to urinate every 2 hours 3. Renal cyst (N28.1: Cyst of kidney, acquired) CT AP w/wo con done 01/09/21 shows 2.3 cm complex hyperdense cyst versus mass in the inferior pole of the right kidney. CT AP wo con done 05/05/22 shows 2.6 cm round, nonenhancing complex cyst versus mass projecting laterally from inferior pole of right kidney, 0.8 cm cyst projecting laterally from mid body of left kidney. 05/05/22.: Crea 1.49. eGFR 34. Explained findings from CT, Bosniak 2 cysts. Does not warrant further imaging. Follow-up With When Contact Information Jacqui Michael MD, URL, URO In 6 months Additional Instructions: Patient Education Calorie Counting for Weight Loss I, Alba Hayes, personally scribed for Dr. Michael on 07/29/2022 09:52:47. . Documentation recorded by the scribeAlba, accurately reflects the services(s) I performed and decisions made by me. Authenticated by Dr. Michael on 07/29/2022 17:58:14. Problem List/Past Medical History Ongoing Acute cystitis Adrenal mass Arthritis Asymptomatic microscopic hematuria Haddad's esophagus Chronic constipation with overflow Colon polyps Constipation Depression Diabetes Dysphagia Extreme obesity Fatty liver Gastroparesis Heartburn History of colon polyps Loose stools Lower abdominal pain Microhematuria Muscle spasm Panic attacks Personal history of colonic polyps Pneumaturia Postinfective urethral stricture, not elsewhere classified, female Psoriatic arthritis Renal cyst Renal mass Urinary retention Historical Colonoscopy EGD (esophagogastroduodeno scopy) gastric outlet re (more content not included)... Normal [facility] Comment on above: Result Comment: Elec tronically Signed By: Jacqui Michael MD\.br\Date and Time Signed: 07/29/22 17:58 EDT\.br\Electronically Co-Signed By: Alba Hayes\.br\Date and Time Co-Signed: 07/29/22 09:52 EDT Ambulatory Visit Summaryon 0 07-08-2022 Ambulatory Visit Summary MARTIN HAGEN :1950 Visit Date:07/08/2022 Ambulatory Visit Instructions Your Care Team Attending Physician - DANN العلي, INES Berumen Primary Care Physician - SUNIL XIE, SHAWN Pearson This Is Your Medications List albuterol (ProAir HFA 90 mcg/inh inhalation aerosol) albuterol (Ventolin HFA 90 mcg/inh Aerosol) alprazolam (alprazolam 1 mg Tab) atorvastatin (atorvastatin 20 mg Tab) brexpiprazole (Rexulti 0.25 mg oral tablet) calcium-vitamin D (calcium (as carbonate)-vitamin D 90 mg-25 mcg (1000 intl units) oral tablet) dexamethasone (dexamethasone 1 mg oral tablet) dulaglutide (Trulicity Pen) empagliflozin-metFORMI N (Synjardy 5 mg-1000 mg oral tablet) ferrous sulfate fluoxetine fluticasone-salmeterol (Advair 250 mcg-50 mcg Powder) furosemide (furosemide 40 mg Tab) insulin isophane-insulin regular (Novolin 70/30) lisinopril (lisinopril 20 mg Tab) magnesium amino acids chelate metoclopramide (Reglan 10 mg Tab) metoprolol (Metoprolol tartrate 50 mg Tab) naproxen (Midol Extended Relief) omega-3 polyunsaturated fatty acids (Fish Oil) potassium chloride (Klor-Con M20) promethazine tizanidine (tizanidine 4 mg oral capsule) vitamin E Procedures Performed Cystoscopy (12/02/2020), Cholecystectomy, Colonoscopy, History of hernia repair, History of hysterectomy.. What to do next Scheduled Follow-Up Appointments Wednesday 9:00 AM EDT With: Alec XIE, Jacqui Nieves Where: [facility] Nurse Consultation Noteon Nurse Consultation Note Reason for Visit Catheter Removal for Voiding Trial Assessment/Plan 1. Acute cystitis (N30.00: Acute cystitis without hematuria) Pt?s catheter has been removed in office today with no complications. They have been advised to drink plenty of fluids. Pt has been instructed to call the office in the event that they are not able to void in the next 4-6 hours, or go the ER. Advised Pt if they experience any severe bleeding, fever over 101 and/ or shaking chills to go to the ER. Pt has follow up with Dr Michael 07/29/22 to review labs & PVR Normal [facility] PROF CHEM 8 (BAS METB)on Anion gap [Moles/Vol] 12.3 mmol/L Normal [facility] Comment on above: Performed By: #### B MP ####[facility] [address] [place] [address]Dr. Cherjun David Calcium [Mass/Vol] 9.4 mg/dL Normal 8.5-10.[address] [facility] Comment on above: Performed By: #### B MP ####[facility] [address] [place], [place] [address]Dr. Ivette Hernandez Chloride [Moles/Vol] 105 mmol/L Normal 98-[address] [facility] Comment on above: Performed By: #### B MP ####[facility] [address] [place], [place] [address]Dr. Ivette Hernandez CO2 [Moles/Vol] 30.2 mmol/L Normal 21.0-32.[address] [facility] Comment on above: Performed By: #### B MP ####[facility] [address] [place], [place] [address]Dr. Ivette Hernandez Creatinine [Mass/Vol] 2.66 mg/dL Critically high 0.55-1.[address] [facility] Comment on above: Performed By: #### B MP ####[facility] [address] [place], [place] [address]Dr. Ivette Hernandez EGFR-AF AUSTRALIAN 21 mL/min/1.73m2 Critically low >=60 [facility] Comment on above: Performed By: #### B MP ####[facility] [address] [place], [place] [address]Dr. Ivette Hernandez EGFR-NON AF AUSTRALIAN 18 mL/min/1.73m2 Critically low >=[address] [facility] Comment on above: Performed By: #### B MP ####[facility] [address] [place], [place] [address]Dr. Ivette Hernandez Glucose [Mass/Vol] 126 mg/dL Critically high 74-106 [facility] Comment on above: Performed By: #### B MP ####[facility] [address] [place] [address]Dr. Ivette Hernandez Potassium [Moles/Vol] 4.5 mmol/L Normal 3.5-5.[address] [facility] Comment on above: Performed By: #### B MP ####[facility] [address] [place] [id number]. Cherjun David Sodium [Moles/Vol] 143 mmol/L Normal 136-[address] [facility] Comment on above: Performed By: #### B MP ####[facility] [address] [place] [address]Dr. Ivette David Urea nitrogen [Mass/Vol] 55.0 mg/dL Critically high 7.0-18.[address] [facility] Comment on above: Performed By: #### B MP ####[facility] [address] [place] [address]Dr. Ivette Hernandez Urea nitrogen/Creatinine [Mass ratio] 20.7 mg/mg Normal [facility] Comment on above: Performed By: #### B MP ####[facility] [address] [place] [address]Dr. Ivette David Office Visiton 07-06-2022 Follow-up visit [id number] Maria G Hagen 1950 F Date Provider Department Center 07/06/2022 [facility]-ON LICENSE OF [facility], [facility] Family History Problem Relation Age of Onset Stroke Mother Hypertension Mother Heart attack Father Hypertension Sister Heart attack Sister Heart attack Brother Family Status - Relation Status Age at Mother Father Sister Brother Level of Service:78901 NC OFFICE/OUTPATIENT ESTABLISHED MOD MDM 30-39 MIN Reason for Visit and Comments: Congestive Heart Failure [127] Atrial Fibrillation [80] Normal [facility] Lab Reportson 06-24-2022 Lab Reports [id number] 0CD:127 Normal [facility] METANEPHRINES PLASMA FREEon 06-24-2022 Metanephrine, Pl 16.5 pg/mL Normal 0.0-88.[address] [facility] Comment on above: Performed By: #### M ETANPF ####[facility] [address] [place] [id number]. Ivette Hernandez Normetanephrine, Pl 67.2 pg/mL Normal 0.0-285.[address] [facility] Comment on above: Performed By: #### M ETANPF ####[facility] [address] [place] [id number] Hernandez Lab Reportson 06-23-2022 Lab Reports [id number] 0CD:127 Normal [facility] ALDOSTERONE: RENIN RATIOon 0 06-20-2022 Aldos/Renin Ratio 12.0 Normal 0.0-30.[address] [facility] Comment on above: Result Comment: Unit s: ng/dL per ng/mL/hr Performed By: #### A LDOREN ####[facility] [address] [place] [address]DrJesse Hernandez Aldosterone 3.8 ng/dL Normal 0.0-30.[address] [facility] Comment on above: Performed By: #### A LDOREN ####[facility] [address] [place] [address]DrJesse Hernandez Renin Activity, Plasma 0.316 ng/mL/hr Normal 0.167-5.[address] [facility] Comment on above: Performed By: #### A LDOREN ####[facility] [address] [place] [address]DrJesse Hernandez CORTISOLon 06-16-2022 Cortisol 2.7 ug/dL Normal [facility] Comment on above: Result Comment: Too isol AM 6.2 - 19.4 Cortisol PM 2.3 - 11.9 Performed By: #### C NASIM ####[facility] [address] [place], [place] [address]DrJesse Hernandez Coding Summary.on 06-15-2022 Coding Summary. CD:[id number] Gh 0bWw+PGhlYWQ+RL8VHPXiK 74xtDMjkO2IA5iGRS0NLCH EIXWOXY4LOP9gyYN5FKhfP 2VybiAv PranlSKdQU18IOm0PBD1lS iaNVqylR5wiPIvJ9b5WsYb GC00zO10LXzpRCFhOeW0Xs ZpbjsgbWFy C6hyYmToeWPbMxy+PHRhYm xlIHdpZHRoPScxMDAlJyBz dJpfZL1zMr4mVDRoMAVscJ xhcHNlOiBj t1aeZWDkUUytOI0bjIvhU4 CydLM0GUDiw8i2Qr15nRQ+ CAVaGXE9vFhjRNzsw447Wp Wom4jcNQL5 gFUoLElqOYX3D16op9Z4DA SwHKMlQWL2cPG3pR8wqIcq annwJ9OrtQChThB5KQG6yA ZyaM5rxDwg heqvoY5cDts+S46MXT0FCL CTKT9IBjj5P9PrRvufoKU+ EL49TQEgUL68wCVwoOZqz1 ukmKq7BsIu TOJwMZA0rGekHZokd1GkHU PuX99boUWbz3O8VVDerTdc fBZzRxRuvZI6wO7tGFawrf adt1ryygbq Pgggl9yzyz96hC34D49uQD kdONAkWZC8TAAqVHSnvGvi ju6xyN0vCg6+SNrzf5dnb2 thhTj6TxRc HMSdvaYfvDicHSM7w7QfNh 03Y8NamJrkp0SrWvd2cz89 jRUvj0O0mBG3CShgWWJyvS 6hYZzkOqR5 YGWeVfBkkR30yYUzOOtgCv 4jeCkkaGdmLG4rYDRusqnw JMItxT6nGQUlyNEdfAfxUX 4wNTBpbjtm n708BoJmIGW8ZBVmuRVdA7 XafF1uUkAcGPPyVHKwT6Yt dDKjGNglQ776HNjaItK6XZ VlkrIuZ7Xt YUOdjKuxPzM0h2H9Rl2Sj1 WreswiFMM7GFhmUBTmEiPj TxMnWkT2B5HzAgv9SYMpuI egBC6qT5Kx IBEeqenyzitzwDT7DFLoWU JdtV88jXPcUHlzYw4kd6F2 f450LDVnJNOxvO05Zt4jbB ogMTBwdCBU sO4ufzshw6jqpvgcCnGsGV NjYHq6WQs2JRLzwNdnWsEi LFB6SsV9JFH1cNNpuK2mtT htlviorY6l Oyc+C67ctG4tOIX5HTU1zo nhBPXarwGyNO83KM46O0Sh PjwvdGFibGU+PGRpdiBzdH cnLL5nOcIp d1byn5CiLSfrZ1FyPYNxWG jzZbh8RAAjYKM5rJZ2uV6x GRMvDJale0N0hJD1Y5Hdrg Gqaf8to6jo VFPzCYlsM15miWEul3K1QA BxvLT4QROojQylBxNmxK02 Oyc+FWTplVyjw1RyCwnbc7 hdz5rzmWo5 JkIhZTGbnzNkcCunFZA7y6 ZdFa47S18dNUltBJKdXUWq NHSgFXGjlAhqqf8nzL1jYs 8+PGNvbCB3 fCG4uY8rHYVoEeY2EFduF5 67SeBybJYfKjrte0scq2vi kIi6QuZkXTYaowYswSflMO A0i6ZaBd45 F69gTQfyDLBmWICtPPEnHE SoxIkiab7faO7gLd2+PC9j w2fway39eN09hYT+PHRkIH T5sMfxLEbj HEPdpB0kPUyhAxF2CJBeYi YxbP55hAWpLJzzFg1piNdi xMyeOM3fUMMakjsmu156Xu Pyx6alBYFn lCHwNFcrSKH9Z91qy4W2NI SmAEKlYOQ0zQK4hK4kmCkm bjogbGVmdDsgdmVydGljYW esMTzsM040 IHRvcDsnPlBhdGllbnQgTm BuJTc8G1WfSlj5GXKwfSxl NS2imKHfCKnpKb4ykXmwiQ agLZ3aFFUk aspux805CbEbt8mcVBQgoN AjPVhdMDY9P43yz7D9XMUv LAYnDFP2sHQ2iQ9igMrull ogbGVmdDsg saOspZepOBnrEWfiD424BO RvcDsnPkJpcnRoIERhdGU6 WW50NF15nIBja7C1oIZ8J4 BhZGRpbmct mxqpiBV7PFHzGGYeeH57Uc 7xfUmiCv4rGUDnQYM8VVXg pXIuS4GibD8qRiTdTJLfQR SbB8LlsJSy PNvtP271TAgmZfA1VSAjkt VtM0HcCFWgmMqvYfK6d7S9 Up8CF0Z1WX49HZ33lUHrd6 V8cUA6O4Xg TDMuecbhgckfeSS8CHOnUP LvyO06Nq0rySjgRg1sYWGi IYY3CRZhlODsI3StkQ2cGm AjMDAwMDAw U0UfzOLiSRumK301JTzuIt Q9AWAdsfSzU3XoKUCywAfz QhF5y1F8Xu0EHZv6YF30JM 10uTPns9I5 vJT4Y9LbAALjrxvknwethC P6WZXtBOAieJ75Pf1tqZzc Qv6nYLWaQNG2MBDhuFVjQ7 CooU4iGmBx JJAbDFBlF1ZrhGFoSAumI0 47LSjeOkF4IRYbdtFbH5Wo DQXagCirTyQ3y1H3Ra2CIB SzAT82GRD9 rXQ1FH98VU66G2DnEatwgC FibGU+PHRhYmxlIHdpZHRo UObmIPHgIzNiyKqiZT5gCa 9yZGVyLWNv uWsiaWGhDsUan4fgNGQsJK tbNI9jiCjtK6XozJG6QXKb z7h5Id47Z52aR9JhiWD+PG XnhLT7rSB6 zN9pYyIkBgO0CXggX230Uv BnoBAvUsnko8jqq3ernLw9 SiZ2OBXvspDepKlfTYG9q3 StIe85N09c IHdpZHRoPSIxNSUiIHZhbG iqeu2bqY4qTp1+PGNvbCB3 iIT3nE1kGeBlZzC3OMbuF4 49InRvcCIv Uvsbi9ifj3khxXi5NeDcCJ CszaGkvCyoKOR5m4FwTc13 M7OotYmwy2RsAdx5kx16mH Mcr2J7lXP7 J9XaIZAaiixseOYpjEjiIU 2gVOJmbyldAPVklQ2qGQIb X7b8XvNsIaU3FEyhH1Fazn Q4JERitGEt TYopTOR5M50vw7Q6ZPTpSQ JbPVI5aVQ4qW2jnEjwnuxy bGVmdDsgdmVydGljYWwtYW mnE105QIYp qDnfAHJogC0aQYPwdJFhjA vrRB5yJXAvaxqrDmCQO6eJ WVFxBOMHLbC8R0TwKyg4ZC FjcCduAA2x qCAwHYlmHu8xrAxtdVadTK 8bZAEwsdqoALFiuN6bEPIl pUYkvJlkPN2zGQIwqkjpc9 10ArWlISP0 BTQagKLsD8UqkD9bEuGrUQ RuFZFiQ8JyvKAlVBnpG176 HCajBtV8AZAeepZpA3ZpCM FsaWduOiB0 h9V7Kz6nZC3wIy6nLHG6SX 84QR17vCYql6C1bZK3P0Yk VEJrcrxkmhfyzHB9WMVjYQ XjnD52wYYm LDnxLm7ed0G6z740VMOjVX BmtD63Xi9ilZfyTOKokGYL lU5lsqigq4zwbjayCsRiZI GnPQg6YBi3 WTJoaNrtVxUsERG0WtN7AP M3dAUkoI7hbKhnxnycvU6m Oyc+BiOnWXHrzqQ5R7OyAv v8ACEgkSwp SJ1rjHMhBEcxWt4uxZcwhM lwWC8wQGDpcygrWHGkcU0a PCKwyECbrLyvRW8hMRVkvj mfv437XfZb RFB8TYQbiYNdV6KifU0hRh OfURSvHTDlJ9ZueMYqTRoe I960BNoaIhE3QNKpvfZvD8 FsLWFsaWdu NuE9l1P6Fx0XFS1acRH6E9 TnObu4GVCbjOvsWX1cdMQr MDbtFn1olNhtrBwaMM5rXM BpbjtwYWRk aK4kLWUacYAhmOxwKO0gEA Uqqlvru560FcXoPCI6PTWh vPKaU4SaiQ7nNpRvQYGcDO LjC3KglOZt HRtkT153JWvoYoN8EPVxox TuM0XxDOMcnIscOsX1l3Z8 Fq2ZLCHpXRJmjVDpXyY5G2 RkPjwvdHI+ QO28DZBgUN74nNZlrPDki2 etqBd2HbVpQEKlOSV8bDqt SOmey8KsIXNeI78wgBZga5 K7ENNeqZgj iLIuZtThwLR0kO9cMPjpvn rfv1uegdemKubtq0bseu48 kB50A41mKGyvIIFaDOLfXN UiIHZhbGln cp0fyC0aOj5+XXNxjDE9yU F4bL2rWuNhEuR1KImcG830 FkZnaPSyMdpta7nym9eurT k3VuHxAWHe buVmfLobISM6y1AnXt33W0 9sIHdpZHRoPSIyMCUiIHZh zRywcr8vlK1xXj7+PC9jb2 hpaw34sI18 dHI+NTSqVDS0qTozWGpoBY MkuN4eKDwjAvU2VDElDsBt cX34zFDcKLitBg8gpTkblG lbCK8yUAMy vekla267JtAxg3vaPZZleV WzFWneSBC1D08vc7R6XQUj KXKeWDX6jQF3uH6teNoqim ogbGVmdDsg ewMarUgeHNdxGOnhI558HO JyvZdpPfLgzDFkC5leooZK ZR7tXbnlsIA+UJSoEJA2zX xlPSdwYWRk xV3yNKReI4g8XsHgDiN3DR awU8JuanG1KYLhpPErPOZh nETDaO0rssbtg5kncwaoGh AwMDAwMDt0 FHk7OWYjeAhsYsKqMOK8Hf N0YQU6wSEzyO9xlKafmtyl qD3uBjz+RklOOjwvdGQ+PH UlDDL7aIby TVyhOSTygO1fTNHaI4g3Ho UaPhM1CJueK9JqzhX8TIWc fOYrQBExjOSHoD2xijgqn1 xvcjogIzAw MPIgLLb7UFg6LCGlvBecYj XkGBP3OgY1JCS8pFOqiJ4q iSstyafbvH7aSnt+TVJOOj wvdGQ+PHRk CAY1yZhtIEowUNGcdL8gDV HaI2h8DvPdEuD4RYxiI6Ix zjL7MHYxkWKaAWWmkNCUcR 5vhbwhw0uw fbxuVfJfOEDeWVb1IZn4DW JxpFroSbLbOLQ2UhA2VUG7 bIQjrQ4qsLxzbmdgyY8mFs c+FZI0NRD3 JV98QY53E0VcWbtbeAVbaG U+PHRhYmxlIHdpZHRoPScx LZWqGiTwqQrbGW9vUx7oKQ VyLWNvbGxh cHNl (more content not included)... [facility] C Urineon 06-13-2022 Bacteria identified Cx Nom (U) Microbiology PROCEDURE: Urine Culture [R1] SOURCE: U Random BODY SITE: COLLECTED DATE/TIME: 06/10/2022 12:22 EST RECEIVED DATE/TIME: 06/11/2022 08:06 EST START DATE/TIME: 06/11/2022 08:06 EST FREE TEXT SOURCE: Alec XIE, Jacqui Michael MD, Jacqui Nieves FINAL REPORTS Final Report [] Verified Date/Time: 06/13/2022 13:29 EST >100,000 cfu/ml Enterobacter aerogenes SUSCEPTIBILITY RESULTS __ LEGEND: S=Susceptible, N/R=Not Reported, Blank=Data not available, or drug not advisable or tested, I=Intermediate, ESBL=Extended spectrum beta-lactamase, R=Resistant, TFG=Thymidine-dependen t strain, SHERICE=Beta-lactamase positive, GISSEL=mcg/m;(mg/L), S*=Predicted susceptible interp, R*=Predicted resistant interp Entaer Antibiotic GISSEL Dilutn GISSEL Interp Amikacin <=16 S Ampicillin >16 R Ampicillin/ >16/8 R Sulbactam Aztreonam <=4 S Cefazolin >16 R Cefepime <=2 S Cefoxitin >16 R Ceftazidime 16 I Ceftazidime/ <=8 S Avibactam Ceftriaxone 32 R Ciprofloxacin <=1 S Ertapenem <=0.5 S Gentamicin <=4 S Levofloxacin <=2 S Meropenem <=1 S Nitrofurantoin <=32 S Piperacillin/ <=16 S Tazobactam Tetracycline <=4 S Tigecycline <=2 S Tobramycin <=4 S Trimethoprim/ <=2/38 S Sulfa Performing Locations R1: This test was performed at: [facility], [address] [place] [address], [id number] , , [facility] Comment on above: Performed By: #### [id number] #### [facility] [address] [place] [address] Ambulatory Visit Summaryon 0 06-10-2022 Ambulatory Visit Summary MARTIN HAGEN :1950 Visit Date:06/10/2022 Ambulatory Visit Instructions Your Diagnosis Microhematuria Adrenal mass Renal cyst Urinary retention with incomplete bladder emptying Tests Performed Urnls Dip Stick Auto w/o Microscopy POC 63251 Your Care Team Attending Physician - Alec XIE, Jacqui Nieves Primary Care Physician - SHAWN BARBER MD This Is Your Medications List cephalexin (Keflex 500 mg Cap) dexamethasone (dexamethasone 1 mg oral tablet) Contact prescribing physician if questions or concerns albuterol (ProAir HFA 90 mcg/inh inhalation aerosol) albuterol (Ventolin HFA 90 mcg/inh Aerosol) alprazolam (alprazolam 1 mg Tab) atorvastatin (atorvastatin 20 mg Tab) brexpiprazole (Rexulti 0.25 mg oral tablet) calcium-vitamin D (calcium (as carbonate)-vitamin D 90 mg-25 mcg (1000 intl units) oral tablet) dulaglutide (Trulicity Pen) empagliflozin-metFORMI N (Synjardy 5 mg-1000 mg oral tablet) ferrous sulfate fluoxetine fluticasone-salmeterol (Advair 250 mcg-50 mcg Powder) furosemide (furosemide 40 mg Tab) insulin isophane-insulin regular (Novolin 70/30) lisinopril (lisinopril 20 mg Tab) magnesium amino acids chelate metoclopramide (Reglan 10 mg Tab) metoprolol (Metoprolol tartrate 50 mg Tab) naproxen (Midol Extended Relief) omega-3 polyunsaturated fatty acids (Fish Oil) potassium chloride (Klor-Con M20) promethazine tizanidine (tizanidine 4 mg oral capsule) vitamin E Procedures Performed Cystoscopy (12/02/2020), Cholecystectomy, Colonoscopy, History of hernia repair, History of hysterectomy.. Discharge Vitals Heart Rate (Peripheral) 77 Blood Pressure 130/80 Height 154 cm Height 61 in Weight 86 kg Weight 189.2 lb BMI 36.26 What to do next Scheduled Follow-Up Appointments Wednesday 8:30 AM EST With: Where: [facility] Normal [address] [place] [address] \.br\ You Need to Schedule the Following Appointments\.br \ Follow Up with Alec XIE, Jacqui Nieves, URL, URO When: \.br\ Where:\.br\ Medications\.br\ What How Much When Why Instructions\.br \ New dexamethasone (dexamethasone 1 mg oral tablet) 1 Tablets By Mouth Once Adrenal mass take at 11pm. complete cortisol level at 8am. Pickup at [facility] 2597\.br\ Unchanged cephalexin (Keflex 500 mg Cap) 1 Capsules By Mouth Every 12 hours take 1 capsule the day prior to procedure, take 2nd capsule day of procedure \.br\ Unchanged albuterol (ProAir HFA 90 mcg/ inh inhalation aerosol) 1 Puffs Inhalation Every 4 hours as needed for Shortness of breath or wheezing Contact prescribing physician if questions or concerns \.br\ Unchanged albuterol (Ventolin HFA 90 mcg/ inh Aerosol) 2 Puffs Inhalation 4 times a day Contact prescribing physician if questions or concerns \.br\ Unchanged alprazolam (alprazolam 1 mg Tab) 1 Tablets By Mouth 3 times a day as needed for for anxiety Contact prescribing physician if questions or concerns \.br\ Unchanged atorvastatin (atorvastatin 20 mg Tab) 1 Tablets By Mouth Once a day (at bedtime) Contact prescribing physician if questions or concerns \.br\ Unchanged brexpiprazole (Rexulti 0.25 mg oral tablet) By Mouth Every day Contact prescribing physician if questions or concerns \.br\ Unchanged calcium-vitamin D (calcium (as carbonate)-vitam in D 90 mg-25 mcg (1000 intl units) oral tablet) Contact prescribing physician if questions or concerns \.br\ Unchanged dulaglutide (Trulicity Pen) 1.5 Milligram Subcutaneous Every week Contact prescribing physician if questions or concerns \.br\ Unchanged empagliflozin-me tFORMIN (Synjardy 5 mg-1000 mg oral tablet) 1 Tablets By Mouth 2 times a day Contact prescribing physician if questions or concerns \.br\ Unchanged ferrous sulfate By Mouth Contact prescribing physician if questions or concerns \.br\ Unchanged fluoxetine 40 Milligram By Mouth Every day Contact prescribing physician if questions or concerns \.br\ Unchanged fluticasone-salm eterol (Advair 250 mcg-50 mcg Powder) 1 Puffs Inhalation 2 times a day Contact prescribing physician if questions or concerns \.br\ Unchanged furosemide (furosemide 40 mg Tab) 1 Tablets By Mouth 2 times a day Contact prescribing physician if questions or concerns \.br\ Unchanged insulin isophane-insulin regular (Novolin 70/ 30) 45 - 50 units Subcutaneous Twice a day (before meals) Contact prescribing physician if questions or concerns \.br\ Unchanged lisinopril (lisinopril 20 mg Tab) 1 Tablets By Mouth Every day Contact prescribing physician if questions or concerns \.br\ Unchanged magnesium amino acids chelate By Mouth Contact prescribing physician if questions or concerns \.br\ Unchanged metoclopramide (Reglan 10 mg Tab) 1 Tablets By Mouth Four times a day (before meals and at bedtime) Contact prescribing physician if questions or concerns \.br\ Unchanged metoprolol (Metoprolol tartrate 50 mg Tab) 1 Tablets By Mouth 2 times a day Contact prescribing physician if questions or concerns \.br\ Unchanged naproxen (Midol Extended Relief) 220 Milligram By Mouth Every 8 hours as needed for as needed for pain Contact prescribing physician if questions or concerns \.br\ Unchanged omega-3 polyunsaturated fatty acids (Fish Oil) 1,000 Milligram By Mouth Every day Contact prescribing physician if questions or concerns \.br\ Unchanged potassium chloride (Klor-Con M20) 20 Milliequivalent By Mouth 2 times a day Contact prescribing physician if questions or concerns \.br\ Unchanged promethazine 25 Milligram By Mouth Every 6 hours as needed for as needed for nausea/vomiting Contact prescribing physician if questions or concerns \.br\ Unchanged tizanidine (tizanidine 4 mg oral capsule) By Mouth 3 times a day Contact prescribing physician if questions or concerns \.br\ Unchanged vitamin E 180 Milligram By Mouth Every day Contact prescribing physician if questions or concerns \.br\ Pharmacy Information\.br\ [facility] [address] [place], [place] [id number] [phone]\.br\ Test Results\.br\ Urnls Dip Stick Auto w/o Microscopy POC 12496 (06/10/2022)\.br \ Bilirubin Urine Dipstick - Negative\.br\ Blood Urine Dipstick - 3+ Large\.br\ Glucose Urine Dipstick - Negative\.br\ Ketones Urine Dipstick - Negative\.br\ Leukocytes Urine Dipstick - 3+ Large\.br\ Nitrite Urine Dipstick - Negative\.br\ Protein Urine Dipstick - 2+ (100 mg/dl)\.br\ Specific [place] Urine Dipstick - 1.020\.br\ Urine Appearance Urine Dipstick - Clear\.br\ Urine Color Urine Dipstick - Yellow\.br\ Urobilinogen Urine Dipstick - Normal 0.2-1 EU/dl\.br\ pH Urine Dipstick - 5\.br\ Allergies\.br\ Aleve (AOF)\.br\ Bee Stings (Swelling of body region)\.br\ Grapefruit (Unknown)\.br\ Pineapple (Unknown)\.br\ Problems\.br\ Ongoing - Any problem that you are currently receiving treatment for.\.br\ Acute cystitis\.br\ Adrenal mass\.br\ Arthritis\.br\ Asymptomatic microscopic hematuria\.br\ Haddad's esophagus\.br\ Chronic constipation with overflow\.br\ Colon polyps\.br\ Constipation\.br \ Depression\.br\ Diabetes\.br\ Dysphagia\.br\ Extreme obesity\.br\ Fatty liver\.br\ Gastroparesis\.b r\ Heartburn\.br\ History of colon polyps\.br\ Loose stools\.br\ Lower abdominal pain\.br\ Microhematuria\. br\ Muscle spasm\.br\ Panic attacks\.br\ Personal history of colonic polyps\.br\ Postinfective urethral stricture, not elsewhere classified, female\.br\ Psoriatic arthritis\.br\ Renal cyst\.br\ Renal mass\.br\ Historical - Any problem that you are no longer receiving treatment for.\.br\ Colonoscopy\.br\ EGD (esophagogastrod uodenoscopy) gastric outlet reduction\.br\ Heart disease\.br\ Education Materials\.br\ Hematuria, Adult\.br\ \.br\ Hematuria is blood in the urine. Blood may be visible in the urine, or it may be identified with a test. This condition can be caused by infections of the bladder, urethra, kidney, or prostate. Other possible causes include:\.br\ ? \.br\ Kidney stones.\.br\ ? \.br\ Cancer of the urinary tract.\.br\ ? \.br\ Too much calcium in the urine.\.br\ ? \.br\ Conditions that are passed from parent to child (inherited conditions).\.br \ ? \.br\ Exercise that requires a lot of energy.\.br\ Infections can usually be treated with medicine, and a kidney stone usually will pass through your urine. If neither of these is the cause of your hematuria, more tests may be needed to identify the cause of your symptoms.\.br\ It is very important to tell your health care provider about any blood in your urine, even if it is painless or the blood stops without treatment. Blood in the urine, when it happens and then stops and then happens again, can be a symptom of a very serious condition, including cancer. There is no pain in the initial stages of many urinary cancers.\.br\ Follow these instructions at home:\.br\ Medicines\.br\ ? \.br\ Take buhc-sxb-yvspkry and prescription medicines only as told by your health care provider.\.br\ ? \.br\ If you were prescribed an antibiotic medicine, take it as told by your health care provider. Do not stop taking the antibiotic even if you start to feel better.\.br\ Eating and drinking\.br\ ? \.br\ Drink enough fluid to keep your urine clear or pale yellow. It is recommended that you drink 3?4 quarts (2.8?3.8 L) a day. If you have been diagnosed with an infection, it is recommended that you drink cranberry juice in addition to large amounts of water.\.br\ ? \.br\ Avoid caffeine, tea, and [facility] Patient Educationon 06-10-19 Patient Education Urology Hematuria, Adult Hematuria is blood in the urine. Blood may be visible in the urine, or it may be identified with a test. This condition can be caused by infections of the bladder, urethra, kidney, or prostate. Other possible causes include: ? Kidney stones. ? Cancer of the urinary tract. ? Too much calcium in the urine. ? Conditions that are passed from parent to child (inherited conditions). ? Exercise that requires a lot of energy. Infections can usually be treated with medicine, and a kidney stone usually will pass through your urine. If neither of these is the cause of your hematuria, more tests may be needed to identify the cause of your symptoms. It is very important to tell your health care provider about any blood in your urine, even if it is painless or the blood stops without treatment. Blood in the urine, when it happens and then stops and then happens again, can be a symptom of a very serious condition, including cancer. There is no pain in the initial stages of many urinary cancers. Follow these instructions at home: Medicines ? Take wuuh-mti-xnwvqzr and prescription medicines only as told by your health care provider. ? If you were prescribed an antibiotic medicine, take it as told by your health care provider. Do not stop taking the antibiotic even if you start to feel better. Eating and drinking ? Drink enough fluid to keep your urine clear or pale yellow. It is recommended that you drink 3?4 quarts (2.8?3.8 L) a day. If you have been diagnosed with an infection, it is recommended that you drink cranberry juice in addition to large amounts of water. ? Avoid caffeine, tea, and carbonated beverages. These tend to irritate the bladder. ? Avoid alcohol because it may irritate the prostate (men). General instructions ? If you have been diagnosed with a kidney stone, follow your health care provider's instructions about straining your urine to catch the stone. ? Empty your bladder often. Avoid holding urine for long periods of time. ? If you are female: ? After a bowel movement, wipe from front to back and use each piece of toilet paper only once. ? Empty your bladder before and after sex. ? Pay attention to any changes in your symptoms. Tell your health care provider about any changes or any new symptoms. ? It is your responsibility to get your test results. Ask your health care provider, or the department performing the test, when your results will be ready. ? Keep all follow-up visits as told by your health care provider. This is important. Contact a health care provider if: ? You develop back pain. ? You have a fever. ? You have nausea or vomiting. ? Your symptoms do not improve after 3 days. ? Your symptoms get worse. Get help right away if: ? You develop severe vomiting and are unable take medicine without vomiting. ? You develop severe pain in your back or abdomen even though you are taking medicine. ? You pass a large amount of blood in your urine. ? You pass blood clots in your urine. ? You feel very weak or like you might faint. ? You faint. Summary ? Hematuria is blood in the urine. It has many possible causes. ? It is very important that you tell your health care provider about any blood in your urine, even if it is painless or the blood stops without treatment. ? Take hkkv-pwx-oxcgjup and prescription medicines only as told by your health care provider. ? Drink enough fluid to keep your urine clear or pale yellow. This information is not intended to replace advice given to you by your health care provider. Make sure you discuss any questions you have with your health care provider. Document Released: 04/19/2006 Document Revised: 09/13/2019 Document Reviewed: 05/22/2017 [email or web address] Patient Education ? 2019 [email or web address] Normal [facility] URINALYSISOrdered By: Iwona suárez on 06-10-2022 Bacteria LM Ql (Urine sed) 2+ /HPF Invalid Interpretation Code Trace/HPF [facility] [place] Bilirubin Ql (U) Negative (06/10/22 12:20 PM) Normal Negative [facility] [place] Auto SS Clarity (U) Cloudy *ABN* (06/10/22 12:20 PM) Invalid Interpretation Code Clear [facility] [place] Auto SS Color (U) Yellow (2/8/23 12:20 PM) Normal Yellow [facility] UA Auto SS Crystals LM Ql (Urine sed) Present (06/10/22 12:20 PM) Normal [facility] UA Auto SS Epithelial cells.squamous LM.HPF (Urine sed) [#/Area] 3-4 /HPF Normal 0-2/HPF [facility] UA Auto SS Glucose Test strip (U) [Mass/Vol] Negative (06/10/22 12:20 PM) Normal Negative [facility] UA Auto SS Hemoglobin Ql (U) 3+ *ABN* (06/10/22 12:20 PM) Invalid Interpretation Code Negative [facility] UA Auto SS Ketones (U) [Mass/Vol] Negative (06/10/22 12:20 PM) Normal Negative [facility] UA Auto SS [place].plasma/Lithiu m.RBC (Bld) [Mass ratio] 4-20 /HPF Normal 0-3/HPF [facility] UA Auto SS Mucus Ql (Urine sed) Trace (06/10/22 12:20 PM) Normal [facility] UA Auto SS Nitrite Ql (U) Negative (06/10/22 12:20 PM) Normal Negative [facility] UA Auto SS pH (U) 5.5 *NA* (06/10/22 12:20 PM) Invalid Interpretation Code 5.0 - 9.0 [facility] UA Auto SS Protein (U) [Mass/Vol] 1+ *ABN* (06/10/22 12:20 PM) Invalid Interpretation Code Negative [facility] UA Auto SS Specific gravity (U) [Rel density] 1.020 *NA* (06/10/22 12:20 PM) Invalid Interpretation Code 1.005 - 1.030 [facility] UA Auto SS UA Spec Desc Random Urine (06/10/22 12:20 PM) Normal [facility] [place]A Auto SS Urobilinogen Qn (U) 0.3366560 {Mack'U}/dL Normal 0.0 - 1.0 EU/dL [facility] UA Auto SS WBC Auto Ql (U) 2+ *ABN* (06/10/22 12:20 PM) Invalid Interpretation Code Negative [facility] UA Auto SS WBC LM.HPF (Urine sed) [#/Area] /[HPF] Invalid Interpretation Code 0-5/HPF [facility] UA Auto SS Urinalysison 06-10-2022 Bacteria LM Ql (Urine sed) 2+ /HPF Abnormal Trace [facility] Comment on above: Performed By: #### 1 [id number] ####[facility] [address] [place] [address] Bilirubin Ql (U) Negative Normal Negative [facility] Comment on above: Performed By: #### 1 [id number] ####[address] [address] Clarity (U) CLOUDY Abnormal Clear [facility] Comment on above: Performed By: #### 1 [id number] ####[facility] [address] [place] [address] Color (U) YELLOW Normal Yellow [facility] Comment on above: Performed By: #### 1 [id number] ####[address] [address] Crystals LM Ql (Urine sed) Present Normal [facility] Comment on above: Performed By: #### 1 [id number] ####[address] [address] Epithelial cells.squamous LM.HPF (Urine sed) [#/Area] 3-4 Normal 0-2 [facility] Comment on above: Performed By: #### 1 [id number] ####[facility] [address] [place] [address] Glucose Test strip (U) [Mass/Vol] Negative Normal Negative [facility] Comment on above: Performed By: #### 1 [id number] ####[facility] [address] [place] [address] Hemoglobin Ql (U) 3+ Abnormal Negative [facility] Comment on above: Performed By: #### 1 [id number] ####[facility] [address] [place] [address] Ketones (U) [Mass/Vol] Negative Normal Negative [facility] Comment on above: Performed By: #### 1 [id number] ####[address] [address] [place].plasma/Lithiu m.RBC (Bld) [Mass ratio] 4-20 Normal 0-3 [facility] Comment on above: Performed By: #### 1 [id number] ####[facility] [address] [place] [address] Mucus Ql (Urine sed) TRACE Normal [facility] Comment on above: Performed By: #### 1 [id number] ####[address] [address] Nitrite Ql (U) Negative Normal Negative [facility] Comment on above: Performed By: #### 1 [id number] ####[address] [address] pH (U) 5.5 [pH] Invalid Interpretation Code 5.0-9.0 [facility] Comment on above: Performed By: #### 1 [id number] ####[address] [address] Protein (U) [Mass/Vol] 1+ Abnormal Negative [facility] Comment on above: Performed By: #### 1 [id number] ####[address] [address] Specific gravity (U) [Rel density] 1.020 Invalid Interpretation Code 1.005-1.030 [facility] Comment on above: Performed By: #### 1 [id number] ####[address] [address] Type of Urine collection method Random Urine Normal [facility] Comment on above: Performed By: #### 1 [id number] ####[address] [address] Urobilinogen Qn (U) 0.2 {Mack'U}/dL Normal 0.0-1.0 [facility] Comment on above: Performed By: #### 1 [id number] ####[address] [address] WBC Auto Ql (U) 2+ Abnormal Negative [facility] Comment on above: Performed By: #### 1 [id number] ####[address] [place] [address] WBC LM.HPF (Urine sed) [#/Area] /[HPF] Abnormal 0-5 [facility] Comment on above: Performed By: #### 1 [id number] ####[facility] [address] [place] [address] Urology Office/Clinic Noteon 06-10-2022 Urology Office/Clinic Note Chief Complaint Pt is here for 15 month f/u w/ CT HPI Staff Martin is a 71 y.o. female here for 15 month follow up w/ CT scan. Previous Dx: acute cystitis, asymptomatic microscopic hematuria, urethral stricture, renal mass. S/P cystoscopy done on 12/02/20. CT a/p w/ contrast done on 05/05/22 showed 2.6cm round, nonenhancing complex cyst versus mass projecting laterally from inferior pole of right kidney, 0.8cm cyst projecting laterally from mid body of left kidney. CRE 1.49 done on 05/05/22. Dysuria: denies Incomplete bladder emptying: denies Hematuria: denies Frequency: yes varies depending on fluid intake Urgency: yes Nocturia: 1x a night Stream: steady stream Leaking: yes Post void dripping: denies Wearing pads/ Depends: yes wears depends changes 2x a day at least sometimes changes due to bowels Urge incontinence: yes Stress incontinence: denies Incontinence without Sensory Awareness: denies Abdominal pain: denies Flank pain: denies Sexual complaints: _ History of Present Illness Tests reviewed: reviewed UA, CT scan, blood work. I have reviewed the previous health record information and history for this patient from Dr. Kaba. I have reviewed and verified the staff HPI to be accurate for this encounter. There have been no associated fever, chills, flank pain, or blood in the urine. Denies any urinary infections since last encounter. Review of Systems PHQ Score Initial Depression Screen Score: 0 ROS - Provider Constitutional: denies weight loss, denies hot flashes. Eyes: denies eye problems. Gastrointestinal: denies nausea, denies vomiting. Cardiovascular: denies chest pain or angina. Integumentary: no dryness Musculoskeletal: denies musculoskeletal symptoms. ENMT: denies otolaryngeal symptoms. Respiratory: no shortness of breath. Heme/Lymph: denies easy bleeding tendency, denies easy bruising tendency. Psychiatric: no confusion, no anxiety. Genitourinary: See HPI. Physical Exam Vitals & Measurements HR: 77(Peripheral) BP: 130/80 HT: 61 in HT: 154 cm WT: 86 kg WT: 189.2 lb BMI: 36.26 General Appearance: alert , no acute distress, well nourished, well developed female. On supplemental O2 Genitourinary: bladder nonpalpable, no flank pain. Abdominal obesity, excess facial hair, buffalo hump Assessment/Plan Pt is here with her daughter today. 1. Microhematuria (R31.29: Other microscopic hematuria) S/p cysto done 12/02/20 by [facility]. Fish and Cysto was negative. UA today shows large blood and leuks. Denies any visible blood in the urine. Was hospitalized 7-8 times last year for CHF and covid. Had an infection during one stay, was asx. Recent CT AP w/ IV contrast findings below. No hydro, no delayed phase to evaluate for filling defects -will send urine for micro UA and culture. Consider repeat hematuria workup pending results Ordered: Urinalysis 2. Adrenal mass (E27.8: Other specified disorders of adrenal gland) CT AP w/wo con done 01/09/21 shows stable adrenal mass on right side at 4.2 cm and Left side 2.[address] AP wo con done 05/05/22 shows stable 4.3 x 3.5 cm slightly heterogenous right adrenal mass with a few tiny areas of fat density suggestive of a benign adenoma. Stable left adrenal mass 2.5 x 1.9 cm without appreciable fat density. Explained findings from CT, adrenal masses remain stable. No prior metabolic workup, discussed benign adrenal adenomas may be functional. Recommend functional adrenal workup. Will obtain: -Overnight low-dose dexamethasone suppression test: Patient to take 1 mg dexamethasone at 11 PM, obtain serum cortisol at 8 AM -Plasma free metanephrine and normetanephrine levels -Morning plasma aldosterone to renin ratio -Follow up within 2 months to review workup 3. Renal cyst (N28.1: Cyst of kidney, acquired) CT AP w/wo con done 01/09/21 shows 2.3 cm complex hyperdense cyst versus mass in the inferior pole of the right kidney. CT AP wo con done 05/05/22 shows 2.6 cm round, nonenhancing complex cyst versus mass projecting laterally from inferior pole of right kidney, 0.8 cm cyst projecting laterally from mid body of left kidney. 05/05/22.: Crea 1.49. eGFR 34. Explained findings from CT, Bosniak 2 cysts. Does not warrant further imaging. 4. Urinary retention with incomplete bladder emptying (R33.9: Retention of urine, unspecified) PVR 350 ml Denies feeling of incomplete emptying or urinary issues. Likely decreased sensation secondary to DM2 and chronic retention -18Fr martinez placed due to retention and pneumaturia below. -F/u UCx, treat based on sensitivities, f/u 2 wks for nursing visit voiding trial Ordered: Urine Culture 5. Pneumaturia (R39.89: Other symptoms and signs involving the genitourinary system) Significant noted on CT scan 05/2022. Denies instrumentation prior to this. Upon questioning, does not passage of air with urine, no fecaluria. Discussed potential for complications and progression to sepsis, especially in uncontroll (more content not included)... Normal [facility] Comment on above: Result Comment: Elec tronically Signed By: Alec XIE, Jacqui Nieves\.br\Date and Time Signed: 06/10/22 17:35 EST\.br\Electronically Co-Signed By: Marissa Denson\.br\Date and Time Co-Signed: 06/10/22 10:57 EST Lab Reportson 05-07-2022 Lab Reports [id number] 0CD:127 Normal [facility] CT ABD/PELV W CONon 05-06-19 CT ABD/PELV W CON Normal [facility] RAD - CT Reporton 05-06-2022 RAD - CT Report [id number] 0CD:127 Normal [facility] CREATININEon 05-05-2022 Creatinine [Mass/Vol] 1.49 mg/dL Critically high 0.55-1.[address] [facility] Comment on above: Performed By: #### C BENITA ####[facility] [address] [place] [address]Dr. Ivette Hernandez EGFR-AF AUSTRALIAN 42 mL/min/1.73m2 Critically low >=[address] [facility] Comment on above: Performed By: #### C BENITA ####[facility] [address] [place] [address]Dr. Ivette David EGFR-NON AF AUSTRALIAN 34 mL/min/1.73m2 Critically low >=[address] [facility] Comment on above: Performed By: #### C BENITA ####[facility] [address] [place] [address]Dr. Cherjun Hernandez PROF CHEM 8 (BAS METB)on Anion gap [Moles/Vol] 12.6 mmol/L Normal [facility] Comment on above: Performed By: #### B MP ####[facility] [address] [place] [address]Dr. Ivette Hernandez Calcium [Mass/Vol] 8.0 mg/dL Critically low 8.5-10.1 [facility] Comment on above: Performed By: #### B MP ####[facility] [address] [place] [address]Dr. Ivette Hernandez Chloride [Moles/Vol] 103 mmol/L Normal 98-[address] [facility] Comment on above: Performed By: #### B MP ####[facility] [address] [place], [place] [address]Dr. Ivette Hernandez CO2 [Moles/Vol] 28.7 mmol/L Normal 21.0-32.[address] [facility] Comment on above: Performed By: #### B MP ####[facility] [address] [place] [address]Dr. Ivette Hernandez Creatinine [Mass/Vol] 1.54 mg/dL Critically high 0.55-1.[address] [facility] Comment on above: Performed By: #### B MP ####[facility] [address] [place] [address]Dr. Ivette Hernandez EGFR-AF AUSTRALIAN 40 mL/min/1.73m2 Critically low >=[address] [facility] Comment on above: Performed By: #### B MP ####[facility] [address] [place] [id number]. Ivette Hernandez EGFR-NON AF AUSTRALIAN 33 mL/min/1.73m2 Critically low >=[address] [facility] Comment on above: Performed By: #### B MP ####[facility] [address] [place] [id number]. Ivette Hernandez Glucose [Mass/Vol] 126 mg/dL Critically high 74-106 [facility] Comment on above: Performed By: #### B MP ####[facility] [address] [place] [id number]. Ivette Hernandez Potassium [Moles/Vol] 3.3 mmol/L Critically low 3.5-5.[address] [facility] Comment on above: Performed By: #### B MP ####[facility] [address] [place] [address]Dr. Ivette Hernandez Sodium [Moles/Vol] 141 mmol/L Normal 136-145 [facility] Comment on above: Performed By: #### B MP ####[facility] [address] [place] [id number]. Ivette Hernandez Urea nitrogen [Mass/Vol] 21.0 mg/dL Critically high 7.0-18.[address] [facility] Comment on above: Performed By: #### B MP ####[facility] [address] [place] [address]Dr. Ivette David Urea nitrogen/Creatinine [Mass ratio] 13.6 mg/mg Normal [facility] Comment on above: Performed By: #### B MP ####[facility] [address] [place] [id number]. Ivette Hernandez CBC AUTO DIFFon 04-13-2022 BASO # 0.0 103/ul Normal 0.0-0.[address] [facility] Comment on above: Performed By: #### C BC ####[facility] [address] [place] [id number]. Ivette David Basophils/100 WBC (Bld) 0.3 % Normal 0.2-2.[address] [facility] Comment on above: Performed By: #### C BC ####[facility] [address] [place] [address]Dr. Ivette Hernandez EO # 0.3 103/ul Normal 0.0-0.7 [facility] Comment on above: Performed By: #### C BC ####[facility] [address] [place] [address]Dr. Ivette Hernandez Eosinophils/100 WBC (Bld) 4.3 % Normal 0.9-7.0 [facility] Comment on above: Performed By: #### C BC ####[facility] [address] [place], [place] [address]Dr. Ivette Hernandez Erythrocyte distribution width (RBC) [Ratio] 14.2 % Normal 11.0-15.[address] [facility] Comment on above: Performed By: #### C BC ####[facility] [address] [place], [place] [address]Dr. Ivette Hernandez Hematocrit (Bld) [Volume fraction] 26.2 % Critically low 36.0-48.[address] [facility] Comment on above: Performed By: #### C BC ####[facility] [address] [place], [place] [address]Dr. Ivette Hernandez Hemoglobin (Bld) [Mass/Vol] 8.0 g/dL Critically low 12.0-16.[address] [facility] Comment on above: Performed By: #### C BC ####[facility] [address] [place], [place] [address]Dr. Ivette Hernandez IG # 0.03 10e3/ul Normal 0.00-0.03 [facility] Comment on above: Performed By: #### C BC ####[facility] [address] [place], [place] [address]Dr. Ivette Hernandez IG % 0.5 % Normal 0.0-0.5 [facility] Comment on above: Performed By: #### C BC ####[facility] [address] [place], [place] [address]Dr. Ivette Hernandez LYMPH # 2.2 103/ul Normal 1.2-3.8 [facility] Comment on above: Performed By: #### C BC ####[facility] [address] [place] [id number]. Ivette Hernandez Lymphocytes/100 WBC (Bld) 35.5 % Normal 20.5-60.[address] [facility] Comment on above: Performed By: #### C BC ####[facility] [address] [place] [id number]. Cherjun Hernandez MANUAL DIFF REQ NO Normal [facility] Comment on above: Performed By: #### C BC ####[facility] [address] [place], [place] [id number]. Ivette David MCH (RBC) [Entitic mass] 28.0 pg Normal 26.7-34.0 [facility] Comment on above: Performed By: #### C BC ####[facility] [address] [place], [place] [address]Dr. Ivette David MCHC (RBC) [Mass/Vol] 30.5 g/dL Normal 29.9-35.2 [facility] Comment on above: Performed By: #### C BC ####[facility] [address] [place], [place] [address]Dr. Ivette David MCV (RBC) [Entitic vol] 91.6 fL Normal 81.0-99.[address] [facility] Comment on above: Performed By: #### C BC ####[facility] [address] [place], [place] [address]Dr. Cherjun David MONO # 0.5 103/ul Normal 0.3-0.8 [facility] Comment on above: Performed By: #### C BC ####[facility] [address] [place], [place] [address]Dr. Cherjun Hernandez Monocytes/100 WBC (Bld) 8.2 % Normal 1.7-12.0 [facility] Comment on above: Performed By: #### C BC ####[facility] [address] [place], [place] [address]Dr. Ivette Hernandez NEUT # 3.2 103/ul Normal 1.4-6.5 [facility] Comment on above: Performed By: #### C BC ####[facility] [address] [place], [place] [address]Om. Ivette Hernandez Neutrophils/100 WBC (Bld) 51.2 % Normal 43.0-75.[address] [facility] Comment on above: Performed By: #### C BC ####[facility] [address] [place], [place] [address]Fv. Ivette Hernandez Platelet mean volume (Bld) [Entitic vol] 9.8 fL Normal 9.5-13.[address] [facility] Comment on above: Performed By: #### C BC ####[facility] [address] [place] [id number]. Ivette Hernandez PLT 168 103/ul Normal 150-[address] [facility] Comment on above: Performed By: #### C BC ####[facility] [address] [place] [id number]. Ivette Hernandez RBC 2.86 106/ul Critically low 4.20-5.[address] [facility] Comment on above: Performed By: #### C BC ####[facility] [address] [place], [place] [address]Er. Ivette Hernandez WBC 6.2 103/ul Normal 4.0-11.[address] [facility] Comment on above: Performed By: #### C BC ####[facility] [address] [place] [id number]. Ivetet Hernandez Office Visiton 04-13-2022 Follow-up visit [id number] Maria G Hagen 1950 F Date Provider Department Center 04/13/2022 MADI MITCHELL [facility] Family History Problem Relation Age of Onset Stroke Mother Hypertension Mother Heart attack Father Hypertension Sister Heart attack Sister Heart attack Brother Family Status - Relation Status Age at Mother Father Sister Brother Level of Service:10036 NC OFFICE/OUTPATIENT ESTABLISHED MOD MDM 30-39 MIN Reason for Visit and Comments: Congestive Heart Failure [127] Atrial Fibrillation [80] Normal [facility] POINT OF CARE GLUCOSEon 04-02 Glucose [Mass/Vol] 140 mg/dL Critically high 74-106 T [facility] Comment on above: Performed By: #### P OCGLUC ####[facility] Pcimzqbcll[address] [place] [address]Dr. Ivette Hernandez PROF CHEM 8 (BAS METB)on Anion gap [Moles/Vol] 7.9 mmol/L Normal [facility] Comment on above: Performed By: #### B MP ####[facility] Vxafdyrlqq[address] [place], [place] [address]Dr. Ivette Hernandez Calcium [Mass/Vol] 7.9 mg/dL Critically low 8.5-10.1 Th [facility] Comment on above: Performed By: #### B MP ####[facility] Zijwkcziix0[address] [place], [place] [address]Dr. Ivette Hernandez Chloride [Moles/Vol] 106 mmol/L Normal 98-[address] [facility] Comment on above: Performed By: #### B MP ####[facility] Akgtcmgqtb7988[address] [place], [place] [address]Dr. Ivette Hernandez CO2 [Moles/Vol] 32.0 mmol/L Normal 21.0-32.[address] [facility] Comment on above: Performed By: #### B MP ####[facility] Orflckkyzw4[address] [place], [place] [address]Dr. Ivette Hernandez Creatinine [Mass/Vol] 1.67 mg/dL Critically high 0.55-1.[address] [facility] Comment on above: Performed By: #### B MP ####[facility] Iewtlrrfde9[address] [place], [place] [address]Dr. Ivette Hernandez EGFR-AF AUSTRALIAN 36 mL/min/1.73m2 Critically low >=60 [facility] Comment on above: Performed By: #### B MP ####[facility] Ulnrxzwhkn0925[address] [place], [place] [address]Dr. Ivette Hernandez EGFR-NON AF AUSTRALIAN 30 mL/min/1.73m2 Critically low >=[address] [facility] Comment on above: Performed By: #### B MP ####[facility] Jzyahujoss[address] [place], [place] [address]Dr. Ivette Hernandez Glucose [Mass/Vol] 91 mg/dL Normal 74-106 [facility] Comment on above: Performed By: #### B MP ####[facility] Xqmvexqrab7490[address] [place], [place] [address]Dr. Ivette Hernandez Potassium [Moles/Vol] 3.9 mmol/L Normal 3.5-5.1 [facility] Comment on above: Performed By: #### B MP ####[facility] Dzadyucyln3[address] [place], [place] [address]Dr. Ivette Hernandez Sodium [Moles/Vol] 142 mmol/L Normal 136-145 [facility] Comment on above: Performed By: #### B MP ####[facility] Micnianbfq8597[address] [place], [place] [address]Dr. Ivette Hernandez Urea nitrogen [Mass/Vol] 26.0 mg/dL Critically high 7.0-18.0 [facility] Comment on above: Performed By: #### B MP ####[facility] Gkoldzxcqt8405[address] [place], [place] [address]Dr. Ivette Hernandez Urea nitrogen/Creatinine [Mass ratio] 15.6 mg/mg Normal [facility] Comment on above: Performed By: #### B MP ####[facility] Bssiuyeyhs[address] [place], [place] [address]Dr. Ivette Hernandez CBC AUTO DIFFon 04-12-2022 BASO # 0.0 103/ul Normal 0.0-0.1 [facility] Comment on above: Performed By: #### C BC ####[facility] Oipmiavpcj8[address] [place], [place] [address]Dr. Ivette Hernandez Basophils/100 WBC (Bld) 0.5 % Normal 0.2-2.0 [facility] Comment on above: Performed By: #### C BC ####[facility] Xszagxtxtx0063[address] [place], [place] [address]Dr. Ivette Hernandez EO # 0.3 103/ul Normal 0.0-0.7 [facility] Comment on above: Performed By: #### C BC ####[facility] Nefvopafil[address] [place], [place] [address]Dr. Ivette Hernandez Eosinophils/100 WBC (Bld) 4.4 % Normal 0.9-7.0 [facility] Comment on above: Performed By: #### C BC ####[facility] Chwxejalib656[address] [place], [place] [address]Dr. Ivette Hernandez Erythrocyte distribution width (RBC) [Ratio] 14.2 % Normal 11.0-15.0 [facility] Comment on above: Performed By: #### C BC ####[facility] Zgpgdxnxiy484[address] [place], [place] [address]Dr. Cherjun Hernandez Hematocrit (Bld) [Volume fraction] 25.9 % Critically low 36.0-48.0 [facility] Comment on above: Performed By: #### C BC ####[facility] Qaoslllzrk496[address] [place], [place] [address]Dr. Ivette Hernandez Hemoglobin (Bld) [Mass/Vol] 8.0 g/dL Critically low 12.0-16.0 [facility] Comment on above: Performed By: #### C BC ####[facility] Mbxinrbhyc1506[address] [place], [place] [address]Dr. Ivette Hernandez IG # 0.03 10e3/ul Normal 0.00-0.03 [facility] Comment on above: Performed By: #### C BC ####[facility] Ndfhckjjte5356[address] [place], [place] [address]Dr. Ivette Hernandez IG % 0.5 % Normal 0.0-0.5 [facility] Comment on above: Performed By: #### C BC ####[facility] Xtambpnuvv2867[address] [place], [place] [address]Dr. Ivette Hernandez LYMPH # 2.1 103/ul Normal 1.2-3.8 [facility] Comment on above: Performed By: #### C BC ####[facility] Lhxspyxupb3673[address] [place], [place] [address]Dr. Ivette Hernandez Lymphocytes/100 WBC (Bld) 35.0 % Normal 20.5-60.0 [facility] Comment on above: Performed By: #### C BC ####[facility] Myceonclss2858[address] [place], [place] [address]Dr. Ivette Hernandez MANUAL DIFF REQ NO Normal [facility] Comment on above: Performed By: #### C BC ####[facility] Flzootjlnl[address] [place] [address]Dr. Ivette Hernandez MCH (RBC) [Entitic mass] 28.3 pg Normal 26.7-34.[address] [facility] Comment on above: Performed By: #### C BC ####[facility] Gehffvrwbg7694[address] [place], [place] [address]Dr. Ivette Hernandez MCHC (RBC) [Mass/Vol] 30.9 g/dL Normal 29.9-35.2 [facility] Comment on above: Performed By: #### C BC ####[facility] Zkiyelvnna6774[address] [place], [place] [address]DrJesse Hernandez MCV (RBC) [Entitic vol] 91.5 fL Normal 81.0-99.[address] [facility] Comment on above: Performed By: #### C BC ####[facility] Ievgreoysv724[address] [place], [place] [address]DrJesse Hernandez MONO # 0.4 103/ul Normal 0.3-0.8 [facility] Comment on above: Performed By: #### C BC ####[facility] Spxcofbfkh418[address] [place], [place] [address]DrJesse Hernandez Monocytes/100 WBC (Bld) 7.1 % Normal 1.7-12.0 [facility] Comment on above: Performed By: #### C BC ####[facility] Dvpqcndbbv756[address] [place], [place] [address]DrJesse Hernandez NEUT # 3.1 103/ul Normal 1.4-6.5 [facility] Comment on above: Performed By: #### C BC ####[facility] Jldvbconpp6298[address] [place], [place] [address]DrJesse Hernandez Neutrophils/100 WBC (Bld) 52.5 % Normal 43.0-75.0 [facility] Comment on above: Performed By: #### C BC ####[facility] Ndqoqfogvl5299[address] [place], [place] [address]DrJesse Hernandez Platelet mean volume (Bld) [Entitic vol] 9.6 fL Normal 9.5-13.[address] [facility] Comment on above: Performed By: #### C BC ####[facility] Warhfirnky39[address] [place] [address]Dr. Ivette Hernandez PLT 163 103/ul Normal 150-[address] [facility] Comment on above: Performed By: #### C BC ####[facility] Swevfdfrld7[address] [place] [address]Dr. Ivette Hernandez RBC 2.83 106/ul Critically low 4.20-5.[address] [facility] Comment on above: Performed By: #### C BC ####[facility] Thirrahkij20[address] [place] [address]Dr. Ivette David WBC 5.9 103/ul Normal 4.0-11.[address] [facility] Comment on above: Performed By: #### C BC ####[facility] Grqiwtmnpf8836[address] [place], [place] [address]Dr. Ivette David CULTURE URINEon 04-12-2022 CULTURE URINE Normal [facility] Comment on above: Performed By: #### U RCX ####[facility] Zkbhcuhfic5720[address] [place], [place] [address]DrJesse Hernandez POINT OF CARE GLUCOSEon 04-02 Glucose [Mass/Vol] 106 mg/dL Normal 74-[address] [facility] Comment on above: Performed By: #### P OCGLUC ####[facility] Ixvspyrjfz[address] [place], [place] [address]Dr. Ivette Hernandez Glucose [Mass/Vol] 212 mg/dL Critically high 74-106 [facility] Comment on above: Performed By: #### P OCGLUC ####[facility] Bwswdtysrp27[address] [place], [place] [address]DrJesse Hernandez Glucose [Mass/Vol] 136 mg/dL Critically high 74-106 [facility] Comment on above: Performed By: #### P OCGLUC ####[facility] Jxexelriem8327[address] [place], [place] [address]DrJesse Hernandez PROF CHEM 8 (BAS METB)on Anion gap [Moles/Vol] 9.6 mmol/L Normal [facility] Comment on above: Performed By: #### B MP ####[facility] Exfbymqjcf7532[address] [place], [place] [address]Dr. Ivette Hernandez Calcium [Mass/Vol] 7.5 mg/dL Critically low 8.5-10.1 [facility] Comment on above: Performed By: #### B MP ####[facility] Aiwsunpmvh0158[address] [place], [place] [address]Dr. Ivette Hernandez Chloride [Moles/Vol] 106 mmol/L Normal 98-107 [facility] Comment on above: Performed By: #### B MP ####[facility] Odwnzhadqs069[address] [place], [place] [address]Dr. Ivette Hernandez CO2 [Moles/Vol] 29.3 mmol/L Normal 21.0-32.[address] [facility] Comment on above: Performed By: #### B MP ####[facility] Vnlelsdwpm1366[address] [place], [place] [address]Dr. Ivette Hernandez Creatinine [Mass/Vol] 1.48 mg/dL Critically high 0.55-1.[address] [facility] Comment on above: Performed By: #### B MP ####[facility] Kixcrocyym8386[address] [place], [place] [address]Dr. Ivette Hernandez EGFR-AF AUSTRALIAN 42 mL/min/1.73m2 Critically low >=60 [facility] Comment on above: Performed By: #### B MP ####[facility] Qamvtzbcjg810[address] [place], [place] [address]Dr. Ivette Hernandez EGFR-NON AF AUSTRALIAN 35 mL/min/1.73m2 Critically low >=60 [facility] Comment on above: Performed By: #### B MP ####[facility] Pwldbxfyiu7775[address] [place], [place] [address]Dr. Ivette Hernandez Glucose [Mass/Vol] 87 mg/dL Normal 74-106 [facility] Comment on above: Performed By: #### B MP ####[facility] Dfcbuzfsqw4360[address] [place], [place] [address]Dr. Ivette Hernandez Potassium [Moles/Vol] 3.9 mmol/L Normal 3.5-5.1 [facility] Comment on above: Performed By: #### B MP ####[facility] Knbpwssina9664[address] [place], [place] [address]Dr. Ivette Hernandez Sodium [Moles/Vol] 141 mmol/L Normal 136-145 [facility] Comment on above: Performed By: #### B MP ####[facility] Possfdojng939[address] [place], [place] [address]Dr. Ivette Hernandez Urea nitrogen [Mass/Vol] 24.0 mg/dL Critically high 7.0-18.0 [facility] Comment on above: Performed By: #### B MP ####[facility] Yroftzrugy9984[address] [place], [place] [address]Dr. Ivette David Urea nitrogen/Creatinine [Mass ratio] 16.2 mg/mg Normal [facility] Comment on above: Performed By: #### B MP ####[facility] Atxundkusu[address] [place], [place] [address]Dr. Ivette David CBC AUTO DIFFon 04-11-2022 BASO # 0.0 103/ul Normal 0.0-0.1 [facility] Comment on above: Performed By: #### C BC ####[facility] Duituamtqf4449[address] [place], [place] [address]Dr. Ivette David Basophils/100 WBC (Bld) 0.3 % Normal 0.2-2.0 [facility] Comment on above: Performed By: #### C BC ####[facility] Pyrefgvapr7628[address] [place], [place] [address]Dr. Ivette David EO # 0.2 103/ul Normal 0.0-0.7 [facility] Comment on above: Performed By: #### C BC ####[facility] Dtpfwtleis7187[address] [place], [place] [address]Dr. Ivette David Eosinophils/100 WBC (Bld) 2.8 % Normal 0.9-7.0 [facility] Comment on above: Performed By: #### C BC ####[facility] Yfrwtogbdd4786[address] [place], [place] [address]Dr. Cherjun Hernandez Erythrocyte distribution width (RBC) [Ratio] 14.4 % Normal 11.0-15.0 [facility] Comment on above: Performed By: #### C BC ####[facility] Gqjfukhdtk4[address] [place] [address]Dr. Ivette Hernandez Hematocrit (Bld) [Volume fraction] 24.9 % Critically low 36.0-48.0 [facility] Comment on above: Performed By: #### C BC ####[facility] Onlabjwcok28[address] [place] [address]Dr. Ivette Hernandez Hemoglobin (Bld) [Mass/Vol] 7.7 g/dL Critically low 12.0-16.0 [facility] Comment on above: Performed By: #### C BC ####[facility] Syhoeltegu45[address] [place] [address]Dr. Ivette Hernandez IG # 0.02 10e3/ul Normal 0.00-0.03 [facility] Comment on above: Performed By: #### C BC ####[facility] Mipisosodu50[address] [place] [address]Dr. Ivette Hernandez IG % 0.3 % Normal 0.0-0.5 [facility] Comment on above: Performed By: #### C BC ####[facility] Jtbrpvrfqy9[address] [place] [address]Dr. Ivette Hernandez LYMPH # 1.9 103/ul Normal 1.2-3.8 [facility] Comment on above: Performed By: #### C BC ####[facility] Watlokxayi05[address] [place] [address]Dr. Ivette Hernandez Lymphocytes/100 WBC (Bld) 32.7 % Normal 20.5-60.0 [facility] Comment on above: Performed By: #### C BC ####[facility] Qnzzbdzgnd9716 [place] [address]Dr. Ivette Hernandez MANUAL DIFF REQ NO Normal [facility] Comment on above: Performed By: #### C BC ####[facility] Qooqqqihyh97[address] [place] [address]Dr. Ivette Hernandez MCH (RBC) [Entitic mass] 28.3 pg Normal 26.7-34.0 [facility] Comment on above: Performed By: #### C BC ####[facility] Osudgydvgu[address] [place] [address]Dr. Ivette Hernandez MCHC (RBC) [Mass/Vol] 30.9 g/dL Normal 29.9-35.2 [facility] Comment on above: Performed By: #### C BC ####[facility] Dfvgqjqvnf0196[address] [place], [place] [address]Dr. Ivette Hernandez MCV (RBC) [Entitic vol] 91.5 fL Normal 81.0-99.0 [facility] Comment on above: Performed By: #### C BC ####[facility] Eekahgzonk97[address] [place], [place] [address]Dr. Ivette David MONO # 0.5 103/ul Normal 0.3-0.8 [facility] Comment on above: Performed By: #### C BC ####[facility] Uaawwxjzzt6775[address] [place], [place] [address]Dr. Ivette David Monocytes/100 WBC (Bld) 8.2 % Normal 1.7-12.0 [facility] Comment on above: Performed By: #### C BC ####[facility] Whuhpxrfgt7501[address] [place], [place] [address]Dr. Ivette Hernandez NEUT # 3.2 103/ul Normal 1.4-6.5 [facility] Comment on above: Performed By: #### C BC ####[facility] Tivxoqxvfl8732[address] [place], [place] [address]Dr. Ivette David Neutrophils/100 WBC (Bld) 55.7 % Normal 43.0-75.0 [facility] Comment on above: Performed By: #### C BC ####[facility] Netgsiezah4501[address] [place], [place] [address]Dr. Ivette David Platelet mean volume (Bld) [Entitic vol] 9.7 fL Normal 9.5-13.5 [facility] Comment on above: Performed By: #### C BC ####[facility] Ivnqmqqcbf44[address] [place] [id number]. Ivette Hernandez PLT 139 103/ul Critically low 150-[address] [facility] Comment on above: Performed By: #### C BC ####[facility] Jdilvttdcf5[address] [place] [address]Dr. Ivette Hernandez RBC 2.72 106/ul Critically low 4.20-5.[address] [facility] Comment on above: Performed By: #### C BC ####[facility] Clksaydlvf33[address] [place] [address]Dr. Ivette Hernandez WBC 5.8 103/ul Normal 4.0-11.[address] [facility] Comment on above: Performed By: #### C BC ####[facility] Tpfuwjsfro39[address] [place] [address]Dr. Ivette Hernandez IRON AND TIBCon 04-11-2022 % SATURATION 10.4 % Normal [facility] Comment on above: Performed By: #### B 12FOL FETIBC ####[facility] Dwlysijlxj10[address] [place] [address]Dr. Ivette Hernandez Iron [Mass/Vol] 19.0 ug/dL Critically low 50.0-170.[address] [facility] Comment on above: Performed By: #### B 12FOL, FETIBC ####[facility] Grpjquwjyl8[address] [place] [address]Dr. Ivette Hernandez TIBC DIRECT 182.0 ug/dL Critically low 250.0-450.[address] [facility] Comment on above: Performed By: #### B 12FOL, FETIBC ####[facility] Gkewpjljbs2560 [place] [address]Dr. Ivette Hernandez POINT OF CARE GLUCOSEon 04-02 Glucose [Mass/Vol] 124 mg/dL Critically high 74-106 [facility] Comment on above: Performed By: #### P OCGLUC ####[facility] Sbhmdrffpz99[address] [place] [address]Dr. Ivette Hernandez Glucose [Mass/Vol] 128 mg/dL Critically high 74-106 [facility] Comment on above: Performed By: #### P OCGLUC ####[facility] Ayjfhvjakh12[address] [place] [id number]. Ivette Hernandez Glucose [Mass/Vol] 144 mg/dL Critically high 74-106 T [facility] Comment on above: Performed By: #### P OCGLUC ####[facility] Dgjfwqilvq6335 [place] [id number]. Cherjun Hernandez PROF CHEM 8 (BAS METB)on Anion gap [Moles/Vol] 9.7 mmol/L Normal [facility] Comment on above: Performed By: #### B MP ####[facility] Rsxszmkqye29[address] [place] [address]Dr. Ivette Hernandez Calcium [Mass/Vol] 6.9 mg/dL Critically low 8.5-10.1 [facility] Comment on above: Performed By: #### B MP ####[facility] Tqkvzztewg[address] [place], [place] [address]Dr. Ivette Hernandez Chloride [Moles/Vol] 109 mmol/L Critically high 98-[address] [facility] Comment on above: Performed By: #### B MP ####[facility] Aldcvooxne[address] [place] [address]Dr. Cherjun Hernandez CO2 [Moles/Vol] 29.2 mmol/L Normal 21.0-32.[address] [facility] Comment on above: Performed By: #### B MP ####[facility] Kfiuumottb[address] [place] [address]Dr. Ivette Hernandez Creatinine [Mass/Vol] 1.41 mg/dL Critically high 0.55-1.[address] [facility] Comment on above: Performed By: #### B MP ####[facility] Hwsaonzzux77[address] [place] [address]Dr. Ivette Hernandez EGFR-AF AUSTRALIAN 44 mL/min/1.73m2 Critically low >=[address] [facility] Comment on above: Performed By: #### B MP ####[facility] Yqtxfqjbpa30[address] [place] [address]Dr. Ivette Hernandez EGFR-NON AF AUSTRALIAN 37 mL/min/1.73m2 Critically low >=60 [facility] Comment on above: Performed By: #### B MP ####[facility] Wjijbccgwk9664 [place] [address]Dr. Ivette Hernandez Glucose [Mass/Vol] 95 mg/dL Normal 74-106 [facility] Comment on above: Performed By: #### B MP ####[facility] Dwqhpmgamt58[address] [place] [address]Dr. Ivette Hernandez Potassium [Moles/Vol] 3.9 mmol/L Normal 3.5-5.1 [facility] Comment on above: Performed By: #### B MP ####[facility] Cttshvfabi04[address] [place] [address]Dr. Ivette Hernandez Sodium [Moles/Vol] 144 mmol/L Normal 136-145 [facility] Comment on above: Performed By: #### B MP ####[facility] Djslurrvpd10[address] [place], [place] [address]Dr. Ivette Hernandez Urea nitrogen [Mass/Vol] 25.0 mg/dL Critically high 7.0-18.[address] [facility] Comment on above: Performed By: #### B MP ####[facility] Mxqcydrkiu27[address] [place], [place] [address]Dr. Ivette Hernandez Urea nitrogen/Creatinine [Mass ratio] 17.7 mg/mg Normal [facility] Comment on above: Performed By: #### B MP ####[facility] Ltznvjvluf[address] [place], [place] [address]Dr. Ivette Hernandez VIT B12 AND FOLATEon 022 Cobalamin (Vitamin B12) [Mass/Vol] 769.0 pg/mL Normal 193.0-986.0 [facility] Comment on above: Performed By: #### B 12FOL, FETIBC ####[facility] Rmeocrordy[address] [place], [place] [address]Dr. Ivette Hernandez FOLATE 22.60 ng/mL Normal 8.60-58.[address] [facility] Comment on above: Performed By: #### B 12FOL, FETIBC ####[facility] Ocquluqfnj68[address] [place], [place] [address]Dr. Ivette Hernandez CARDIAC CANDACE 3-6on 2 CK [Catalytic activity/Vol] 38 U/L Normal 26-192 [facility] Comment on above: Performed By: #### C MREP ####[facility] Ibarulehka04[address] [place] [id number]. Ivette Hernandez CK.MB [Mass/Vol] 0.75 ng/mL Normal <=3.60 [facility] Comment on above: Performed By: #### C MREP ####[facility] Rjvxrmpuen50[address] [place] [address]Dr. Ivette Hernandez HSTROP 11.9 pg/mL Normal 4.0-51.3 [facility] Comment on above: Result Comment: CUT- OFF POINTS HAVE BEEN ESTABLISHED BASED ON THE FOURTH UNIVERSAL DEFINITIONS OF MYOCARDIALINFARCTION. THE UPPER REFERENCE LIMIT (URL) OF TROPONIN, DEFINED THE 99TH PERCENTILE OFcTnI DISTRIBUTION IN A REFERENCE POPULATION, HAS BEEN CONFIRMED THE DECISION THRESHOLDFOR ID DIAGNOSIS. Performed By: #### C MREP ####[facility] Qcymsyvavx[address] [place] [address]Dr. Ivette Hernandez CK [Catalytic activity/Vol] 38 U/L Normal 26-192 [facility] Comment on above: Performed By: #### C MREP ####[facility] Ksadiemwfk96[address] [place] [address]Dr. Ivette Hernandez CK.MB [Mass/Vol] 0.11 ng/mL Normal <=3.60 [facility] Comment on above: Performed By: #### C MREP ####[facility] Mqsunwrmgd2814 [place] [address]Dr. Ivette Hernandez HSTROP 11.5 pg/mL Normal 4.0-51.3 [facility] Comment on above: Result Comment: CUT- OFF POINTS HAVE BEEN ESTABLISHED BASED ON THE FOURTH UNIVERSAL DEFINITIONS OF MYOCARDIALINFARCTION. THE UPPER REFERENCE LIMIT (URL) OF TROPONIN, DEFINED THE 99TH PERCENTILE OFcTnI DISTRIBUTION IN A REFERENCE POPULATION, HAS BEEN CONFIRMED THE DECISION THRESHOLDFOR ID DIAGNOSIS. Performed By: #### C MREP ####[facility] Hcimwlxuia69[address] [place] [address]Dr. Ivette Hernandez CBC AUTO DIFFon 04-10-2022 BASO # 0.0 103/ul Normal 0.0-0.1 [facility] Comment on above: Performed By: #### C BC ####[facility] Hnclsexcwg6124 [place] [id number]. Ivette Hernandez Basophils/100 WBC (Bld) 0.3 % Normal 0.2-2.0 [facility] Comment on above: Performed By: #### C BC ####[facility] Hpgshhbqov4[address] [place] [address]Dr. Ivette Hernandez EO # 0.1 103/ul Normal 0.0-0.7 [facility] Comment on above: Performed By: #### C BC ####[facility] Hwgmfcjudi6963 [place] [address]Dr. Ivette Hernandez Eosinophils/100 WBC (Bld) 0.9 % Normal 0.9-7.0 [facility] Comment on above: Performed By: #### C BC ####[facility] Lhqrajlwwy58[address] [place] [address]Dr. Ivette Hernandez Erythrocyte distribution width (RBC) [Ratio] 14.5 % Normal 11.0-15.0 [facility] Comment on above: Performed By: #### C BC ####[facility] Xkvgbacebv6231 [place] [id number]. Ivette Hernandez Hematocrit (Bld) [Volume fraction] 26.1 % Critically low 36.0-48.0 [facility] Comment on above: Performed By: #### C BC ####[facility] Vyxehsgkji2950 [place] [id number]. Ivette Hernandez Hemoglobin (Bld) [Mass/Vol] 8.0 g/dL Critically low 12.0-16.0 [facility] Comment on above: Performed By: #### C BC ####[facility] Ymauippkrq8993 [place] [id number]. Ivette Hernandez IG # 0.03 10e3/ul Normal 0.00-0.03 [facility] Comment on above: Performed By: #### C BC ####[facility] Gpssiaephh3992 [place] [id number]. Ivette Hernandez IG % 0.4 % Normal 0.0-0.5 [facility] Comment on above: Performed By: #### C BC ####[facility] Rdbbqpvjqg3249 [place] [id number]. Ivette Hernandez LYMPH # 2.2 103/ul Normal 1.2-3.8 [facility] Comment on above: Performed By: #### C BC ####[facility] Wndtsyrjle9643 [place] [id number]. Ivette Hernandez Lymphocytes/100 WBC (Bld) 29.3 % Normal 20.5-60.0 [facility] Comment on above: Performed By: #### C BC ####[facility] Qkdsozqvyt01[address] [place] [address]Dr. Ivette Hernandez MANUAL DIFF REQ NO Normal [facility] Comment on above: Performed By: #### C BC ####[facility] Cofcsxieqp3907 [place] [id number]. Ivette Hernandez MCH (RBC) [Entitic mass] 28.4 pg Normal 26.7-34.0 [facility] Comment on above: Performed By: #### C BC ####[facility] Ydzbxqnavx2634 [place] [id number]. Ivette Hernandez MCHC (RBC) [Mass/Vol] 30.7 g/dL Normal 29.9-35.2 [facility] Comment on above: Performed By: #### C BC ####[facility] Bdwkaluril3461 [place] [phone]. Ivette Hernandez MCV (RBC) [Entitic vol] 92.6 fL Normal 81.0-99.0 [facility] Comment on above: Performed By: #### C BC ####[facility] Wioexlanhi2200 [place] [phone]. Ivette David MONO # 0.6 103/ul Normal 0.3-0.8 [facility] Comment on above: Performed By: #### C BC ####[facility] Grvtyytrhc8399 [place] [id number]. Ivette Hernandez Monocytes/100 WBC (Bld) 8.7 % Normal 1.7-12.0 [facility] Comment on above: Performed By: #### C BC ####[facility] Bzxhtsykth0179 [place] [id number]. Ivette Hernandez NEUT # 4.5 103/ul Normal 1.4-6.5 [facility] Comment on above: Performed By: #### C BC ####[facility] Jmmelwthfw0759 [place] [id number]. Ivette Hernandez Neutrophils/100 WBC (Bld) 60.4 % Normal 43.0-75.0 [facility] Comment on above: Performed By: #### C BC ####[facility] Aroafnoezg2907 [place] [id number]. Ivette Hernandez Platelet mean volume (Bld) [Entitic vol] 9.8 fL Normal 9.5-13.5 [facility] Comment on above: Performed By: #### C BC ####[facility] Jggqfyksyt0331 [place] [id number]. Ivette Hernandez PLT 139 103/ul Critically low 150-450 [facility] Comment on above: Performed By: #### C BC ####[facility] Jobjqonyuk9353 [place] [id number]. Ivette Hernandez RBC 2.82 106/ul Critically low 4.20-5.40 [facility] Comment on above: Performed By: #### C BC ####[facility] Teqloqoxhr7127 [place] [id number]. Ivette Hernandez WBC 7.4 103/ul Normal 4.0-11.0 [facility] Comment on above: Performed By: #### C BC ####[facility] Jtkdlzhghg1850 [place] [id number]. Ivette Hernandez CULTURE BLOODon 04-10-2022 Microscopic examination of blood, culture Culture Observations: NO GROWTH AT 5 DAYS. Normal [facility] Comment on above: Performed By: #### B LDCX2 ####[facility] Vmxsecrtec7135 [place] [id number]. Ivette Hernandez Microscopic examination of blood, culture Culture Observations: NO GROWTH AT 5 DAYS. Normal [facility] Comment on above: Performed By: #### B LDCX1 ####[facility] Yzafneayqh5742 [place] [address]Dr. Ivette Hernandez [facility]on SARS-CoV-2 (COVID-19) RNA MARRY+probe Ql (Unsp spec) Not detected Normal NOT DETECTED [facility] Comment on above: Result Comment: When diagnostic testing is negative, the possibility of a false negative should be considered inthe context of a patient's recent exposures and the presence of clinical signs and symptomsconsistent with SARS-CoV-2.This test is not yet approved or cleared by the [place] FDA. When there are no FDA-approved or cleared tests available, and other criteria are met, FDA can make tests available under an emergency access mechanism called an Emergency Use Authorization (EUA). The EUA for this test is supported by the [place] of Health and Human Service's declaration that circumstances exist to justify the emergency use of in vitro diagnostics for the detection and/or diagnosis of the virus that causes COVID-19. This EUA will remain in effect for the duration of the COVID-19 declaration justifying emergency of IVDs, unless it is terminated or revoked by the FDA (after which the test may no longer be used). Performed By: #### C VDTBH ####[facility] Dkfmockflr2584 [place] [address]Dr. Ivette Hernandez ER URINE PROFILEon 2 Bilirubin Ql (U) Negative Normal NEGATIVE [facility] Comment on above: Performed By: #### SONNY MCKOY ####[facility] Uehjrhwsyh3400 [place] [address]Dr. Ivette Hernandez Clarity (U) CLEAR Normal CLEAR [facility] Comment on above: Performed By: #### E SONNY RONDON ####[facility] Ugxcbqryql9501 [place] [id number]. Ivette Hernandez Color (U) YELLOW Normal YELLOW [facility] Comment on above: Performed By: #### FIDENCIO MCKOYRO ####[facility] Jqpdtsjijf3969 [place] [address]Dr. Ivette BRICE A micrscopic examination will be performed if indicated. Normal [facility] Comment on above: Performed By: #### FIDENCIO MCKOYRO ####[facility] Jwnvvpnwly[address] [place], [place] [address]Dr. Ivette Hernandez Glucose Ql (U) Negative Normal NEGATIVE [facility] Comment on above: Performed By: #### FIDENCIO MCKOYRO ####[facility] Xtqaczknhb74[address] [place], [place] [address]Dr. Ivette Hernandez Hemoglobin Ql (U) MODERATE Abnormal NEGATIVE [facility] Comment on above: Performed By: #### FIDENCIO MCKOYRO ####[facility] Xmnjonsiin045[address] [place], [place] [address]Dr. Ivette Hernandez Ketones Ql (U) TRACE Abnormal NEGATIVE [facility] Comment on above: Performed By: #### FIDENCIO MCKOYRO ####[facility] Aftpmjcrhe866[address] [place], [place] [address]Dr. Ivette Hernandez LEUKOCYTES MODERATE Abnormal NEGATIVE [facility] Comment on above: Performed By: #### FIDENCIO MCKOYRO ####[facility] Mpmmbasuwk5[address] [place], [place] [address]Dr. Ivette Hernandez Nitrite Ql (U) Negative Normal NEGATIVE [facility] Comment on above: Performed By: #### SONNY MCKOY ####[facility] Adneikydkq64[address] [place], [place] [address]Dr. Ivette Hernandez pH (U) 7.0 [pH] Normal 5-9 [facility] Comment on above: Performed By: #### SONNY MCKOY ####[facility] Sipozjkexe13[address] [place], [place] [address]Dr. Ivette Hernandez SPEC GRAVITY 1.020 Normal 1.005-<=1.025 [facility] Comment on above: Performed By: #### SONNY MCKOY ####[facility] Dzvhnucbwh8587 [place] [address]Dr. Ivette Hernandez UA PROTEIN >300 Abnormal NEGATIVE/ TRACE [facility] Comment on above: Performed By: #### SONNY MCKOY ####[facility] Ekhuydfqlp6320 [place] [address]Dr. Ivette Hernandez UR MICRO IND INDICATED Normal [facility] Comment on above: Performed By: #### SONNY MCKOY ####[facility] Fkbyytwbus6832 [place] [address]Dr. Ivette Hernandez Urobilinogen Qn (U) 0.2 {Mack'U}/dL Normal 0.2 - 1. [address] [facility] Comment on above: Performed By: #### SONNY MCKOY ####[facility] Wzhqrwhakl6346 [place] [address]Dr. Ivette Hernandez POINT OF CARE GLUCOSEon Glucose [Mass/Vol] 164 mg/dL Critically high -106 [facility] Comment on above: Performed By: #### P OCGLUC ####[facility] Oumfcgfuke7[address] [place], [place] [address]Dr. Ivette Hernandez Glucose [Mass/Vol] 123 mg/dL Critically high -106 [facility] Comment on above: Performed By: #### P OCGLUC ####[facility] Hyelfwfigj4444 [place] [address]Dr. Ivette Hernandez Glucose [Mass/Vol] 115 mg/dL Critically high -106 [facility] Comment on above: Performed By: #### P OCGLUC ####[facility] Yuxdpktihe4350 [place] [address]Dr. Ivette Hernandez PROF CHEM 8 (BAS METB)on Anion gap [Moles/Vol] 11.8 mmol/L Normal [facility] Comment on above: Performed By: #### B MP ####[facility] Gsftcpemac[address] [place], [place] [address]Dr. Ivette Hernandez Calcium [Mass/Vol] 6.5 mg/dL Critically low 8.5-10.1 [facility] Comment on above: Performed By: #### B MP ####[facility] Iyscfpiqgo3327 [place] [id number]. Ivette David Chloride [Moles/Vol] 108 mmol/L Critically high 98-[address] [facility] Comment on above: Performed By: #### B MP ####[facility] Wfcxxrmocc1685 [place] [phone]. Ivette David CO2 [Moles/Vol] 29.2 mmol/L Normal 21.0-32.[address] [facility] Comment on above: Performed By: #### B MP ####[facility] Ekkduhswqb2597 [place] [id number]. Ivette David Creatinine [Mass/Vol] 1.61 mg/dL Critically high 0.55-1.[address] [facility] Comment on above: Performed By: #### B MP ####[facility] Dbfzmkrljy3379 [place] [address]Dr. Ivette Hernandez EGFR-AF AUSTRALIAN 38 mL/min/1.73m2 Critically low >=[address] [facility] Comment on above: Performed By: #### B MP ####[facility] Stdyliuzek9785 [place] [id number]. Ivette David EGFR-NON AF AUSTRALIAN 31 mL/min/1.73m2 Critically low >=[address] [facility] Comment on above: Performed By: #### B MP ####[facility] Duxszrbiem6200 [place] [id number]. Ivette Hernandez Glucose [Mass/Vol] 107 mg/dL Critically high 74-106 [facility] Comment on above: Performed By: #### B MP ####[facility] Bumeikzwui9518 [place] [id number]. Ivette Hernandez Potassium [Moles/Vol] 4.0 mmol/L Normal 3.5-5.[address] [facility] Comment on above: Performed By: #### B MP ####[facility] Sawaaoyvch5425 [place] [id number]. Ivette Hernandez Sodium [Moles/Vol] 145 mmol/L Normal 136-[address] [facility] Comment on above: Performed By: #### B MP ####[facility] Yycuzfaydg9375 [place] [address]Dr. Ivette Hernandez Urea nitrogen [Mass/Vol] 23.0 mg/dL Critically high 7.0-18.0 [facility] Comment on above: Performed By: #### B MP ####[facility] Irclkncjxj2151 [place] [address]Dr. Ivette Hernandez Urea nitrogen/Creatinine [Mass ratio] 14.3 mg/mg Normal [facility] Comment on above: Performed By: #### B MP ####[facility] Slzhoxnpyu5276 [place] [address]Dr. Ivette Hernandez URINE MICROSCOPIC ONLYon BACTERIA MODERATE Abnormal NONE SEEN [facility] Comment on above: Performed By: #### Ata RONDON UMICRO ####[facility] Jakdmjezen6[address] [place], [place] [address]Dr. Ivette Hernandez Bacteria identified Cx Nom (U) INDICATED Normal [facility] Comment on above: Performed By: #### Ata RONDON UMICRO ####[facility] Qgoazkkhxx614[address] [place], [place] [address]Dr. Ivette Hernandez CAST NONE SEEN Normal NONE SEEN [facility] Comment on above: Performed By: #### Ata RONDON UMICRO ####[facility] Zzcegjxlrg8[address] [place], [place] [address]Dr. Ivette Hernandez Crystals LM Nom (Urine sed) NONE SEEN Normal NONE SEEN [facility] Comment on above: Performed By: #### Ata RONDON UMICRO ####[facility] Hizyinqbwz5114 [place] [address]Dr. Ivette Hernandez Epithelial cells LM Ql (Urine sed) RARE Normal NONE SEEN /RARE [facility] Comment on above: Performed By: #### Ata RONDON UMICRO ####[facility] Zalmglgsal5879 [place] [address]Dr. Ivette Hernandez MUCOUS NONE SEEN Normal NONE SEEN [facility] Comment on above: Performed By: #### Ata RONDON UMICRO ####[facility] Wcjlkqwzpc6929 [place] [id number]. Ivette Hernandez RBC NONE SEEN Abnormal 0-2 [facility] Comment on above: Performed By: #### SONNY MCKOY ####[facility] Dydwqgblvq0555 [place] [id number]. Ivette Hernandez WBC 20-50 Abnormal NONE SEEN [facility] Comment on above: Performed By: #### SONNY MCKOY ####[facility] Ijbagxyjuj1904 [place] [id number]. Ivette Hernandez XR CHEST 1 Von 04-10-2022 XR CHEST 1 V Normal [facility] CARDIAC CANDACE ADMITon 022 CK [Catalytic activity/Vol] 37 U/L Normal 26-192 [facility] Comment on above: Performed By: #### MYRNA ORTIZ ####[facility] Ysnkyixfds0780 [place] [address]Dr. Ivette David CK.MB [Mass/Vol] 0.14 ng/mL Normal <=3.60 [facility] Comment on above: Performed By: #### MYRNA ORTIZ ####[facility] Ytvxafvxeh0235 [place] [address]Dr. Ivette Hernandez HSTROP 11.0 pg/mL Normal 4.0-51.3 [facility] Comment on above: Result Comment: CUT- OFF POINTS HAVE BEEN ESTABLISHED BASED ON THE FOURTH UNIVERSAL DEFINITIONS OF MYOCARDIALINFARCTION. THE UPPER REFERENCE LIMIT (URL) OF TROPONIN, DEFINED THE 99TH PERCENTILE OFcTnI DISTRIBUTION IN A REFERENCE POPULATION, HAS BEEN CONFIRMED THE DECISION THRESHOLDFOR ID DIAGNOSIS. Performed By: #### Daren PEREYRA, BMP ####[facility] Pxftmgungh5693 [place] [address]Dr. Ivette Hernandez CARMITA 1 ng/mL Critically low 9-82 [facility] Comment on above: Performed By: #### Daren PEREYRA, BMP ####[facility] Xhnfmsxymp7348 [place] [address]Dr. Ivette David CBC AUTO DIFFon 04-09-2022 BASO # 0.0 103/ul Normal 0.0-0.1 [facility] Comment on above: Performed By: #### C BC ####[facility] Kaduouzsbn6701 [place] [address]Dr. Ivette David Basophils/100 WBC (Bld) 0.2 % Normal 0.2-2.0 [facility] Comment on above: Performed By: #### C BC ####[facility] Kivioryelp54[address] [place], [place] [address]Dr. Ivette Hernandez EO # 0.0 103/ul Normal 0.0-0.7 [facility] Comment on above: Performed By: #### C BC ####[facility] Vqtwmfnatt5[address] [place], [place] [address]Dr. Cherjun Hernandez Eosinophils/100 WBC (Bld) 0.5 % Critically low 0.9-7.[address] [facility] Comment on above: Performed By: #### C BC ####[facility] Npkhxkudaf59[address] [place], [place] [address]Dr. Cherjun Hernandez Erythrocyte distribution width (RBC) [Ratio] 14.6 % Normal 11.0-15.[address] [facility] Comment on above: Performed By: #### C BC ####[facility] Xdksyxkjaf2898[address] [place], [place] [address]Dr. Ivette Hernandez Hematocrit (Bld) [Volume fraction] 27.0 % Critically low 36.0-48.0 [facility] Comment on above: Performed By: #### C BC ####[facility] Jhkimiliii8539[address] [place], [place] [address]Dr. Ivette David Hemoglobin (Bld) [Mass/Vol] 8.5 g/dL Critically low 12.0-16.0 [facility] Comment on above: Performed By: #### C BC ####[facility] Kwlsliahhc9220[address] [place], [place] [address]Dr. Ivette Hernandez IG # 0.02 10e3/ul Normal 0.00-0.03 [facility] Comment on above: Performed By: #### C BC ####[facility] Wxzdsvniwd6440[address] [place], [place] [address]Dr. Ivette Hernandez IG % 0.2 % Normal 0.0-0.[address] [facility] Comment on above: Performed By: #### C BC ####[facility] Wbcxyldowy6702 [place] [address]Dr. Ivette David LYMPH # 1.4 103/ul Normal 1.2-3.[address] [facility] Comment on above: Performed By: #### C BC ####[facility] Ljoffraesp8147 [place] [address]Dr. Ivette Hernandez Lymphocytes/100 WBC (Bld) 17.2 % Critically low 20.5-60.[address] [facility] Comment on above: Performed By: #### C BC ####[facility] Abfcntjgtm5111 [place] [address]DrJesse Hernandez MANUAL DIFF REQ NO Normal [facility] Comment on above: Performed By: #### C BC ####[facility] Xwlmaqwkxi32[address] [place], [place] [address]Dr. Ivette Hernandez MCH (RBC) [Entitic mass] 28.7 pg Normal 26.7-34.[address] [facility] Comment on above: Performed By: #### C BC ####[facility] Dbhdffyrnh7384[address] [place], [place] [address]Dr. Cherjun Hernandez MCHC (RBC) [Mass/Vol] 31.5 g/dL Normal 29.9-35.[address] [facility] Comment on above: Performed By: #### C BC ####[facility] Crdicjdixy1264[address] [place], [place] [address]DrJesse Hernandez MCV (RBC) [Entitic vol] 91.2 fL Normal 81.0-99.[address] [facility] Comment on above: Performed By: #### C BC ####[facility] Prqwffurpb1756[address] [place], [place] [address]DrJesse Hernandez MONO # 0.5 103/ul Normal 0.3-0.[address] [facility] Comment on above: Performed By: #### C BC ####[facility] Dfxqsbzlqm4533 [place] [address]Dr. Ivette Hernandez Monocytes/100 WBC (Bld) 6.5 % Normal 1.7-12.[address] [facility] Comment on above: Performed By: #### C BC ####[facility] Yvcoyjdbco4371 [place] [address]Dr. Ivette Hernandez NEUT # 6.3 103/ul Normal 1.4-6.[address] [facility] Comment on above: Performed By: #### C BC ####[facility] Ioeozsvbpu9905 [place] [address]Dr. Ivette Hernandez Neutrophils/100 WBC (Bld) 75.4 % Critically high 43.0-75.[address] [facility] Comment on above: Performed By: #### C BC ####[facility] Ygfuqpxwdz2627 [place] [address]Dr. Ivette Hernandez Platelet mean volume (Bld) [Entitic vol] 9.8 fL Normal 9.5-13.[address] [facility] Comment on above: Performed By: #### C BC ####[facility] Kipbajdzpz39[address] [place], [place] [address]Dr. Ivette Hernandez PLT 158 103/ul Normal 150-450 [facility] Comment on above: Performed By: #### C BC ####[facility] Qqupkhgusd5207[address] [place], [place] [address]Dr. Ivette Hernandez RBC 2.96 106/ul Critically low 4.20-5.[address] [facility] Comment on above: Performed By: #### C BC ####[facility] Nweprkpvxj4446[address] [place], [place] [address]Dr. Ivette Hernandez WBC 8.4 103/ul Normal 4.0-11.0 [facility] Comment on above: Performed By: #### C BC ####[facility] Wdmomxczmr0034 [place] [id number] Hernandez LACTATE/LACTIC ACIDon 2021 Lactate [Moles/Vol] 0.9 mmol/L Normal 0.4-1.[address] [facility] Comment on above: Performed By: #### L ACT ####[facility] Vncylzyxee5916[address] [place], [place] [address]DrJesse Hernandez PROF CHEM 8 (BAS METB)on Anion gap [Moles/Vol] 8.8 mmol/L Normal [facility] Comment on above: Performed By: #### Daren PEREYRA, BMP ####[facility] Ofwcrtyixa379[address] [place], [place] [address]Dr. Ivette Hernandez Calcium [Mass/Vol] 6.9 mg/dL Critically low 8.5-10.1 [facility] Comment on above: Performed By: #### Daren PEREYRA, BMP ####[facility] Ohltrshvoo24[address] [place], [place] [address]Dr. Ivette Hernandez Chloride [Moles/Vol] 105 mmol/L Normal 98-[address] [facility] Comment on above: Performed By: #### Daren PEREYRA, BMP ####[facility] Hkbhcnrpwc5433[address] [place], [place] [address]Dr. Ivette Hernandez CO2 [Moles/Vol] 28.1 mmol/L Normal 21.0-32.[address] [facility] Comment on above: Performed By: #### Daren PEREYRA, BMP ####[facility] Dgqjeplrvq4[address] [place], [place] [address]Dr. Ivette Hernandez Creatinine [Mass/Vol] 1.77 mg/dL Critically high 0.55-1.[address] [facility] Comment on above: Performed By: #### Daren PEREYRA, BMP ####[facility] Xfitlruela7[address] [place], [place] [address]Dr. Ivette Hernandez EGFR-AF AUSTRALIAN 34 mL/min/1.73m2 Critically low >=[address] [facility] Comment on above: Performed By: #### Daren PEREYRA, BMP ####[facility] Geeioalkkt459[address] [place], [place] [address]Dr. Ivette Hernandez EGFR-NON AF AUSTRALIAN 28 mL/min/1.73m2 Critically low >=[address] [facility] Comment on above: Performed By: #### Daren PEREYRA, BMP ####[facility] Iqnchdrlgu9913[address] [place], [place] [address]Dr. Ivette Hernandez Glucose [Mass/Vol] 130 mg/dL Critically high 74-106 [facility] Comment on above: Performed By: #### Daren PEREYRA, BMP ####[facility] Bhkzxegqpl9483 [place] [address]Dr. Ivette Hernandez Potassium [Moles/Vol] 3.9 mmol/L Normal 3.5-5.1 [facility] Comment on above: Performed By: #### C BENJYM, BMP ####[facility] Lmyokklaib1371 [place] [address]Dr. Ivette Hernandez Sodium [Moles/Vol] 138 mmol/L Normal 136-145 [facility] Comment on above: Performed By: #### C BENJYM, BMP ####[facility] Qmalctqcuw7669[address] [place], [place] [address]Dr. Ivette Hernandez Urea nitrogen [Mass/Vol] 25.0 mg/dL Critically high 7.0-18.0 [facility] Comment on above: Performed By: #### C RODDY, BMP ####[facility] Gnsvmrpdrx20[address] [place], [place] [address]Dr. Ivette Hernandez Urea nitrogen/Creatinine [Mass ratio] 14.1 mg/mg Normal [facility] Comment on above: Performed By: #### C RODDY, BMP ####[facility] Qocptvxpdp33[address] [place], [place] [address]Dr. Ivette Hernandez AMMONIAon 03-10-2022 Ammonia (P) [Moles/Vol] 12 umol/L Normal 11-32 [facility] Comment on above: Performed By: #### A MM ####[facility] Zroxudsifg4014[address] [place], [place] [address]Dr. Ivette Hernandez BNPon 03-10-2022 Natriuretic peptide B (Bld) [Mass/Vol] 9132.0 pg/mL Critically high <=900.0 [facility] Comment on above: Performed By: #### M G, CMP, PHOS, BNP ####[facility] Tvrnlwpzgi360[address] [place], [place] [address]Dr. Ivette Hernandez CBC AUTO DIFFon 03-10-2022 BASO # 0.0 103/ul Normal 0.0-0.1 [facility] Comment on above: Performed By: #### C BC ####[facility] Kkhjoecvdw3174 [place] [id number]. Ivette Hernandez Basophils/100 WBC (Bld) 0.3 % Normal 0.2-2.0 [facility] Comment on above: Performed By: #### C BC ####[facility] Hhpshqwoid2285 [place] [id number]. Ivette Hernandez EO # 0.3 103/ul Normal 0.0-0.7 [facility] Comment on above: Performed By: #### C BC ####[facility] Tbtalimotm69[address] [place], [place] [address]Dr. Ivette Hernandez Eosinophils/100 WBC (Bld) 3.2 % Normal 0.9-7.0 [facility] Comment on above: Performed By: #### C BC ####[facility] Lxedgdzibn07[address] [place], [place] [address]Dr. Ivette Hernandez Erythrocyte distribution width (RBC) [Ratio] 14.3 % Normal 11.0-15.0 [facility] Comment on above: Performed By: #### C BC ####[facility] Hrrssxzbli[address] [place], [place] [address]Dr. Ivette Hernandez Hematocrit (Bld) [Volume fraction] 25.5 % Critically low 36.0-48.0 [facility] Comment on above: Performed By: #### C BC ####[facility] Ctbyoncdgt9[address] [place], [place] [address]Dr. Ivette Hernandez Hemoglobin (Bld) [Mass/Vol] 8.0 g/dL Critically low 12.0-16.0 [facility] Comment on above: Performed By: #### C BC ####[facility] Vvinpoweec15[address] [place], [place] [address]Dr. Ivette Hernandez IG # 0.05 10e3/ul Critically high 0.00-0.03 [facility] Comment on above: Performed By: #### C BC ####[facility] Zerprnvsdk66[address] [place], [place] [address]Dr. Ivette Hernandez IG % 0.6 % Critically high 0.0-0.5 [facility] Comment on above: Performed By: #### C BC ####[facility] Pybzlcwwsj2912 [place] [id number]. Ivette Hernandez LYMPH # 1.9 103/ul Normal 1.2-3.8 [facility] Comment on above: Performed By: #### C BC ####[facility] Pqrfikfcdt1320 [place] [id number]. Ivette Hernandez Lymphocytes/100 WBC (Bld) 20.8 % Normal 20.5-60.0 [facility] Comment on above: Performed By: #### C BC ####[facility] Mvgmnqylco3601 [place] [id number]. Ivette David MANUAL DIFF REQ NO Normal [facility] Comment on above: Performed By: #### C BC ####[facility] Ktoovlkwhi1502 [place] [id number]. Ivette David MCH (RBC) [Entitic mass] 28.7 pg Normal 26.7-34.0 [facility] Comment on above: Performed By: #### C BC ####[facility] Asmpazirua0027 [place] [id number]. Ivette Hernandez MCHC (RBC) [Mass/Vol] 31.4 g/dL Normal 29.9-35.2 [facility] Comment on above: Performed By: #### C BC ####[facility] Ewxhkwlekl6927 [place] [id number]. Ivette David MCV (RBC) [Entitic vol] 91.4 fL Normal 81.0-99.0 [facility] Comment on above: Performed By: #### C BC ####[facility] Vjgsuarlkv8369 [place] [id number]. Ivette David MONO # 0.5 103/ul Normal 0.3-0.8 [facility] Comment on above: Performed By: #### C BC ####[facility] Cgwahtpqkg8824 [place] [id number]. Ivette David Monocytes/100 WBC (Bld) 5.6 % Normal 1.7-12.0 [facility] Comment on above: Performed By: #### C BC ####[facility] Wymwweenyo8964 [place] [id number]. Ivette Hernandez NEUT # 6.2 103/ul Normal 1.4-6.5 [facility] Comment on above: Performed By: #### C BC ####[facility] Zkxmnvzwyy5922 [place] [id number]. Ivette Hernandez Neutrophils/100 WBC (Bld) 69.5 % Normal 43.0-75.0 [facility] Comment on above: Performed By: #### C BC ####[facility] Loghivufge7680 [place] [id number]. Ivette Hernandez Platelet mean volume (Bld) [Entitic vol] 9.3 fL Critically low 9.5-13.5 [facility] Comment on above: Performed By: #### C BC ####[facility] Vfpsvlriol1881 [place] [id number]. Ivette Hernandez PLT 213 103/ul Normal 150-450 [facility] Comment on above: Performed By: #### C BC ####[facility] Kxeuewvaur3085 [place] [id number]. Ivette Hernandez RBC 2.79 106/ul Critically low 4.20-5.40 [facility] Comment on above: Performed By: #### C BC ####[facility] Yfvmpcfdpt4984 [place] [id number]. Ivette Hernandez WBC 8.9 103/ul Normal 4.0-11.0 [facility] Comment on above: Performed By: #### C BC ####[facility] Sjvavddzzn7363 [place] [address]Dr. Ivette Hernandez MAGNESIUMon 03-10-2022 Magnesium [Mass/Vol] 1.9 mg/dL Normal 1.8-2.4 [facility] Comment on above: Performed By: #### M G, CMP, PHOS, BNP ####[facility] Uumdzjatck6212 [place] [id number]. Ivette Hernandez PHOSPHORUSon 03-10-2022 Phosphate [Mass/Vol] 3.8 mg/dL Normal 2.6-4.7 [facility] Comment on above: Performed By: #### M G, CMP, PHOS, BNP ####[facility] Wtjzhmypkt9307 [place] [address]Dr. Ivette Hernandez PROF 14(COMP METB)on 022 Albumin [Mass/Vol] 2.3 g/dL Critically low 3.4-5.0 [facility] Comment on above: Performed By: #### M G, CMP, PHOS, BNP ####[facility] Amqsoytgtt6018 [place] [address]Dr. Ivette Hernandez Albumin/Globulin [Mass ratio] 0.6 {ratio} Normal [facility] Comment on above: Performed By: #### M G, CMP, PHOS, BNP ####[facility] Qtvzqrlrjq1822 [place] [address]Dr. Ivette Hernandez ALP [Catalytic activity/Vol] 64 U/L Normal 46-[address] [facility] Comment on above: Performed By: #### M G, CMP, PHOS, BNP ####[facility] F[address]qdbavk[address] [place] [address]Dr. Ivette Hernandez ALT [Catalytic activity/Vol] 14 U/L Normal 14-[address] [facility] Comment on above: Performed By: #### M G, CMP, PHOS, BNP ####[facility] Xazaxkpken[address] [place] [address]Dr. Ivette Hernandez Anion gap [Moles/Vol] 3.4 mmol/L Normal [facility] Comment on above: Performed By: #### M G, CMP, PHOS, BNP ####[facility] Gwzjmbbtqm9[address] [place] [address]Dr. Ivette Hernandez AST [Catalytic activity/Vol] 20 U/L Normal 15-[address] [facility] Comment on above: Performed By: #### M G, CMP, PHOS, BNP ####[facility] Ckihtvprya[address] [place] [address]Dr. Ivette Hernandez Bilirubin [Mass/Vol] 0.3 mg/dL Normal 0.2-1.[address] [facility] Comment on above: Performed By: #### M G, CMP, PHOS, BNP ####[facility] Qeskacklop[address] [place] [address]Dr. Ivette Hernandez Calcium [Mass/Vol] 8.3 mg/dL Critically low 8.5-10.1 [facility] Comment on above: Performed By: #### M G, CMP, PHOS, BNP ####[facility] Pgipagjznh[address] [place] [address]Dr. Ivette Hernandez Chloride [Moles/Vol] 100 mmol/L Normal 98-107 [facility] Comment on above: Performed By: #### M G, CMP, PHOS, BNP ####[facility] Ykockgkuep[address] [place] [address]Dr. Ivette Hernandez CO2 [Moles/Vol] 38.3 mmol/L Critically high 21.0-32.[address] [facility] Comment on above: Performed By: #### M G, CMP, PHOS, BNP ####[facility] Yapwhzcxgo[address] [place], [place] [address]Dr. Ivette Hernandez Creatinine [Mass/Vol] 1.50 mg/dL Critically high 0.55-1.[address] [facility] Comment on above: Performed By: #### M G, CMP, PHOS, BNP ####[facility] Seztipyzuf[address] [place], [place] [address]Dr. Ivette Hernandez EGFR-AF AUSTRALIAN 41 mL/min/1.73m2 Critically low >=60 [facility] Comment on above: Performed By: #### M G, CMP, PHOS, BNP ####[facility] I[address]rmwvjxjg[address] [place], [place] [address]Dr. Ivette Hernandez EGFR-NON AF AUSTRALIAN 34 mL/min/1.73m2 Critically low >=60 [facility] Comment on above: Performed By: #### M G, CMP, PHOS, BNP ####[facility] Qmryccedov[address] [place], [place] [address]Dr. Ivette Hernandez Globulin (S) [Mass/Vol] 4.1 g/dL Normal [facility] Comment on above: Performed By: #### M G, CMP, PHOS, BNP ####[facility] Gblcaaazwn[address] [place] [address]Dr. Ivette Hernandez Glucose [Mass/Vol] 114 mg/dL Critically high 74-106 [facility] Comment on above: Performed By: #### M G, CMP, PHOS, BNP ####[facility] Jdyidtnojz45[address] [place] [address]Dr. Ivette Hernandez Potassium [Moles/Vol] 3.7 mmol/L Normal 3.5-5.[address] [facility] Comment on above: Performed By: #### M G, CMP, PHOS, BNP ####[facility] Gqakuqciwf4[address] [place] [address]Dr. Ivette Hernandez Protein [Mass/Vol] 6.4 g/dL Normal 6.4-8.[address] [facility] Comment on above: Performed By: #### M G, CMP, PHOS, BNP ####[facility] Shrxvptwot[address] [place], [place] [address]Dr. Ivette Hernandez Sodium [Moles/Vol] 138 mmol/L Normal 136-[address] [facility] Comment on above: Performed By: #### M G, CMP, PHOS, BNP ####[facility] Khvbobuegt34[address] [place], [place] [address]Dr. Ivette Hernandez Urea nitrogen [Mass/Vol] 20.0 mg/dL Critically high 7.0-18.[address] [facility] Comment on above: Performed By: #### M G, CMP, PHOS, BNP ####[facility] Gyuqqbhgcu[address] [place], [place] [address]Dr. Ivette Hernandez Urea nitrogen/Creatinine [Mass ratio] 13.3 mg/mg Normal [facility] Comment on above: Performed By: #### M G, CMP, PHOS, BNP ####[facility] Nyngsltekt[address] [place], [place] [address]Dr. Ivette Hernandez AMMONIAon 03-09-2022 Ammonia (P) [Moles/Vol] 15 umol/L Normal 11-[address] [facility] Comment on above: Performed By: #### A MM ####[facility] Isovqjtycq[address] [place], [place] [address]Dr. Ivette Hernandez BNPon 03-09-2022 Natriuretic peptide B (Bld) [Mass/Vol] 95685.0 pg/mL Critically high <=900.0 [facility] Comment on above: Performed By: #### B MAGAZINE WORKER, PHOS, MG, CMP ####[facility] Tjliyjocxx[address] [place] [address]Dr. Ivette Hernandez CBC AUTO DIFFon 03-09-2022 BASO # 0.0 103/ul Normal 0.0-0.1 [facility] Comment on above: Performed By: #### C BC ####[facility] Odtzwcqrqe[address] [place], [place] [address]Dr. Ivette David Basophils/100 WBC (Bld) 0.5 % Normal 0.2-2.0 [facility] Comment on above: Performed By: #### C BC ####[facility] Jmbpenmpan8[address] [place], [place] [address]Dr. Ivette David EO # 0.2 103/ul Normal 0.0-0.7 [facility] Comment on above: Performed By: #### C BC ####[facility] Kcwycljrlp[address] [place], [place] [address]Dr. Ivette David Eosinophils/100 WBC (Bld) 2.6 % Normal 0.9-7.0 [facility] Comment on above: Performed By: #### C BC ####[facility] Umwlvqjyly46[address] [place], [place] [address]Dr. Ivette David Erythrocyte distribution width (RBC) [Ratio] 14.2 % Normal 11.0-15.0 [facility] Comment on above: Performed By: #### C BC ####[facility] Pjxtetwyqt8620[address] [place], [place] [address]Dr. Ivette Hernandez Hematocrit (Bld) [Volume fraction] 26.7 % Critically low 36.0-48.0 [facility] Comment on above: Performed By: #### C BC ####[facility] Katspnzbhj[address] [place], [place] [address]Dr. Ivette David Hemoglobin (Bld) [Mass/Vol] 8.3 g/dL Critically low 12.0-16.[address] [facility] Comment on above: Performed By: #### C BC ####[facility] Tnbqnovhdz64[address] [place] [address]Dr. Ivette Hernandez IG # 0.05 10e3/ul Critically high 0.00-0.[address] [facility] Comment on above: Performed By: #### C BC ####[facility] Smuvvrwvws32[address] [place] [address]DrJesse Hernandez IG % 0.7 % Critically high 0.0-0.[address] [facility] Comment on above: Performed By: #### C BC ####[facility] Hezolycrpm7[address] [place], [place] [address]DrJesse Hernandez LYMPH # 1.4 103/ul Normal 1.2-3.8 [facility] Comment on above: Performed By: #### C BC ####[facility] Thrabltovl33[address] [place], [place] [address]Dr. Ivette Hernandez Lymphocytes/100 WBC (Bld) 17.6 % Critically low 20.5-60.[address] [facility] Comment on above: Performed By: #### C BC ####[facility] Mdsvjtxpgb[address] [place], [place] [address]DrJesse Cherjun Hernandez MANUAL DIFF REQ NO Normal [facility] Comment on above: Performed By: #### C BC ####[facility] Osxhftewvc4[address] [place], [place] [address]Dr. Ivette Hernandez MCH (RBC) [Entitic mass] 28.6 pg Normal 26.7-34.[address] [facility] Comment on above: Performed By: #### C BC ####[facility] Szqgtqoctm[address] [place], [place] [address]Dr. Ivette David MCHC (RBC) [Mass/Vol] 31.1 g/dL Normal 29.9-35.2 [facility] Comment on above: Performed By: #### C BC ####[facility] Zteffhicjh[address] [place] [address]DrJesse Hernandez MCV (RBC) [Entitic vol] 92.1 fL Normal 81.0-99.0 [facility] Comment on above: Performed By: #### C BC ####[facility] Zywtadhirz11[address] [place] [address]Dr. Ivette Hernandez MONO # 0.5 103/ul Normal 0.3-0.[address] [facility] Comment on above: Performed By: #### C BC ####[facility] Megqrrpfrt12[address] [place] [id number]. Ivette Hernandez Monocytes/100 WBC (Bld) 6.2 % Normal 1.7-12.[address] [facility] Comment on above: Performed By: #### C BC ####[facility] Fdzagfeopi2[address] [place] [address]Dr. Ivette Hernandez NEUT # 5.6 103/ul Normal 1.4-6.5 [facility] Comment on above: Performed By: #### C BC ####[facility] Lxxhelteeq6[address] [place], [place] [address]Dr. Ivette Hernandez Neutrophils/100 WBC (Bld) 72.4 % Normal 43.0-75.[address] [facility] Comment on above: Performed By: #### C BC ####[facility] Loupyvqdcd30[address] [place], [place] [address]Dr. Ivette Hernandez Platelet mean volume (Bld) [Entitic vol] 9.6 fL Normal 9.5-13.[address] [facility] Comment on above: Performed By: #### C BC ####[facility] Sebbmfxjrx38[address] [place] [address]Dr. Ivette Hernandez PLT 233 103/ul Normal 150-450 [facility] Comment on above: Performed By: #### C BC ####[facility] Qxtvhszzhz3397 [place] [id number]. Ivette Hernandez RBC 2.90 106/ul Critically low 4.20-5.40 [facility] Comment on above: Performed By: #### C BC ####[facility] Rmbddzxagm9[address] [place] [id number]. Ivette Hernandez WBC 7.7 103/ul Normal 4.0-11.0 [facility] Comment on above: Performed By: #### C BC ####[facility] Ncqmvklxby1145 [place] [id number]. Ivette Hernandez BASO # 0.0 103/ul Normal 0.0-0.1 [facility] Comment on above: Performed By: #### C BC ####[facility] Pwntyekpwy30[address] [place] [id number]. Ivette David Basophils/100 WBC (Bld) 0.5 % Normal 0.2-2.0 [facility] Comment on above: Performed By: #### C BC ####[facility] Wnblgfwjjr[address] [place], [place] [address]Dr. Ivette Hernandez EO # 0.2 103/ul Normal 0.0-0.7 [facility] Comment on above: Performed By: #### C BC ####[facility] Btejsxyijz6[address] [place], [place] [address]Dr. Cherjun Hernandez Eosinophils/100 WBC (Bld) 2.8 % Normal 0.9-7.[address] [facility] Comment on above: Performed By: #### C BC ####[facility] Crpanvtdra14[address] [place], [place] [address]Dr. Ivette Hernandez Erythrocyte distribution width (RBC) [Ratio] 14.3 % Normal 11.0-15.0 [facility] Comment on above: Performed By: #### C BC ####[facility] Iuwclzzfdc98[address] [place], [place] [address]Dr. Ivette Hernandez Hematocrit (Bld) [Volume fraction] 25.2 % Critically low 36.0-48.0 [facility] Comment on above: Performed By: #### C BC ####[facility] Dqlnqtihpm[address] [place], [place] [address]Dr. Ivette Hernandez Hemoglobin (Bld) [Mass/Vol] 7.8 g/dL Critically low 12.0-16.0 [facility] Comment on above: Performed By: #### C BC ####[facility] Fjpboziuvb60[address] [place], [place] [address]Dr. Cherjun Hernandez IG # 0.02 10e3/ul Normal 0.00-0.03 [facility] Comment on above: Performed By: #### C BC ####[facility] Upksuaiaqe65[address] [place] [address]Dr. Cherjun Hernandez IG % 0.3 % Normal 0.0-0.[address] [facility] Comment on above: Performed By: #### C BC ####[facility] Sfqahwrzbx[address] [place], [place] [address]Dr. Ivette David LYMPH # 1.6 103/ul Normal 1.2-3.8 [facility] Comment on above: Performed By: #### C BC ####[facility] Jjhopbyqve88[address] [place], [place] [address]Dr. Cherjun Hernandez Lymphocytes/100 WBC (Bld) 24.5 % Normal 20.5-60.[address] [facility] Comment on above: Performed By: #### C BC ####[facility] Zvcprxqhly[address] [place], [place] [address]Dr. Ivette Hernandez MANUAL DIFF REQ NO Normal [facility] Comment on above: Performed By: #### C BC ####[facility] Hhwzforpac10[address] [place], [place] [address]Dr. Ivette David MCH (RBC) [Entitic mass] 28.4 pg Normal 26.7-34.[address] [facility] Comment on above: Performed By: #### C BC ####[facility] Piozsghvby[address] [place], [place] [address]Dr. Ivette David MCHC (RBC) [Mass/Vol] 31.0 g/dL Normal 29.9-35.2 [facility] Comment on above: Performed By: #### C BC ####[facility] Kkevutlywc[address] [place], [place] [address]Dr. Ivette David MCV (RBC) [Entitic vol] 91.6 fL Normal 81.0-99.0 [facility] Comment on above: Performed By: #### C BC ####[facility] Cdrencoxqc[address] [place], [place] [address]Dr. Ivette Hernandez MONO # 0.5 103/ul Normal 0.3-0.8 [facility] Comment on above: Performed By: #### C BC ####[facility] Rmjdhggvna9[address] [place] [id number]. Ivette Hernandez Monocytes/100 WBC (Bld) 7.8 % Normal 1.7-12.0 [facility] Comment on above: Performed By: #### C BC ####[facility] Xrccyyujza2628 [place] [id number]. Ivette Hernandez NEUT # 4.2 103/ul Normal 1.4-6.5 [facility] Comment on above: Performed By: #### C BC ####[facility] Dxeaglhyye9363 [place] [id number]. Ivette Hernandez Neutrophils/100 WBC (Bld) 64.1 % Normal 43.0-75.0 [facility] Comment on above: Performed By: #### C BC ####[facility] Edgaykvhld6343 [place] [address]Dr. Ivette Hernandez Platelet mean volume (Bld) [Entitic vol] 9.2 fL Critically low 9.5-13.5 [facility] Comment on above: Performed By: #### C BC ####[facility] Xsrixtgbif4[address] [place] [address]Dr. Ivette Hernandez PLT 208 103/ul Normal 150-450 [facility] Comment on above: Performed By: #### C BC ####[facility] Cjnfckkfgu80[address] [place] [address]Dr. Ivette Hernandez RBC 2.75 106/ul Critically low 4.20-5.40 [facility] Comment on above: Performed By: #### C BC ####[facility] Ljqplexanx[address] [place], [place] [id number]. Ivette Hernandez WBC 6.5 103/ul Normal 4.0-11.0 [facility] Comment on above: Performed By: #### C BC ####[facility] Kjzfxpvmms[address] [place], [place] [address]Dr. Ivette Hernandez MAGNESIUMon 03-09-2022 Magnesium [Mass/Vol] 1.7 mg/dL Critically low 1.8-2.[address] [facility] Comment on above: Performed By: #### B MAGAZINE WORKER, PHOS, MG, CMP ####[facility] Yucljsyfqq6[address] [place] [address]Dr. Ivette Hernandez MRI BRAIN WO CONon MRI BRAIN WO CON Normal [facility] PHOSPHORUSon 03-09-2022 Phosphate [Mass/Vol] 3.5 mg/dL Normal 2.6-4.[address] [facility] Comment on above: Performed By: #### B MAGAZINE WORKER, PHOS, MG, CMP ####[facility] Srdyyfrrvs6846 [place] [address]Dr. Ivette Hernandez PROF 14(COMP METB)on 022 Albumin [Mass/Vol] 2.3 g/dL Critically low 3.4-5.0 [facility] Comment on above: Performed By: #### B MAGAZINE WORKER, PHOS, MG, CMP ####[facility] Inggfeupaq5802 [place] [address]Dr. Ivette Hernandez Albumin/Globulin [Mass ratio] 0.6 {ratio} Normal [facility] Comment on above: Performed By: #### B MAGAZINE WORKER, PHOS, MG, CMP ####[facility] Bxeswgwdse84[address] [place] [address]Dr. Ivette Hernandez ALP [Catalytic activity/Vol] 58 U/L Normal 46-[address] [facility] Comment on above: Performed By: #### B MAGAZINE WORKER, PHOS, MG, CMP ####[facility] Qcehyacgal1140 [place] [address]Dr. Ivette Hernandez ALT [Catalytic activity/Vol] 13 U/L Critically low 14-[address] [facility] Comment on above: Performed By: #### B MAGAZINE WORKER, PHOS, MG, CMP ####[facility] Oyeuwvmexf4367 [place] [address]Dr. Ivette Hernandez Anion gap [Moles/Vol] 5.6 mmol/L Normal [facility] Comment on above: Performed By: #### B MAGAZINE WORKER, PHOS, MG, CMP ####[facility] Auhfjhbjub7573 [place] [address]Dr. Ivette Hernandez AST [Catalytic activity/Vol] 16 U/L Normal 15-[address] [facility] Comment on above: Performed By: #### B MAGAZINE WORKER, PHOS, MG, CMP ####[facility] Eneqonvhyd8245 [place] [address]Dr. Ivette Hernandez Bilirubin [Mass/Vol] 0.4 mg/dL Normal 0.2-1.[address] [facility] Comment on above: Performed By: #### B MAGAZINE WORKER, PHOS, MG, CMP ####[facility] Hpwtcbgpip20[address] [place], [place] [address]Dr. Ivette Hernandez Calcium [Mass/Vol] 7.9 mg/dL Critically low 8.5-10.1 [facility] Comment on above: Performed By: #### B MAGAZINE WORKER, PHOS, MG, CMP ####[facility] Rpxnkogqbw[address] [place], [place] [address]Dr. Ivette Hernandez Chloride [Moles/Vol] 99 mmol/L Normal 98-107 [facility] Comment on above: Performed By: #### B MAGAZINE WORKER, PHOS, MG, CMP ####[facility] Kiomifayrm27[address] [place], [place] [address]Dr. Ivette Hernandez CO2 [Moles/Vol] 40.2 mmol/L Critically high 21.0-32.0 [facility] Comment on above: Performed By: #### B MAGAZINE WORKER, PHOS, MG, CMP ####[facility] Txsndtousz33[address] [place], [place] [address]Dr. Ivette Hernandez Creatinine [Mass/Vol] 1.47 mg/dL Critically high 0.55-1.[address] [facility] Comment on above: Performed By: #### B MAGAZINE WORKER, PHOS, MG, CMP ####[facility] Ygtcvndvfv25[address] [place], [place] [address]Dr. Ivette Hernandez EGFR-AF AUSTRALIAN 42 mL/min/1.73m2 Critically low >=60 [facility] Comment on above: Performed By: #### B MAGAZINE WORKER, PHOS, MG, CMP ####[facility] Aupglezsle[address] [place], [place] [address]Dr. Ivette Hernandez EGFR-NON AF AUSTRALIAN 35 mL/min/1.73m2 Critically low >=60 [facility] Comment on above: Performed By: #### B MAGAZINE WORKER, PHOS, MG, CMP ####[facility] Stqnvuiekr4572 [place] [address]Dr. Ivette Hernandez Globulin (S) [Mass/Vol] 4.0 g/dL Normal [facility] Comment on above: Performed By: #### B MAGAZINE WORKER, PHOS, MG, CMP ####[facility] Hbswehmpib4247 [place] [address]Dr. Ivette Hernandez Glucose [Mass/Vol] 100 mg/dL Normal 74-106 [facility] Comment on above: Performed By: #### B MAGAZINE WORKER, PHOS, MG, CMP ####[facility] Frjqrwtier[address] [place], [place] [address]Dr. Ivette Hernandez Potassium [Moles/Vol] 3.8 mmol/L Normal 3.5-5.[address] [facility] Comment on above: Performed By: #### B MAGAZINE WORKER, PHOS, MG, CMP ####[facility] Jhcccahryt99[address] [place], [place] [address]Dr. Ivette Hernandez Protein [Mass/Vol] 6.3 g/dL Critically low 6.4-8.2 [facility] Comment on above: Performed By: #### B MAGAZINE WORKER, PHOS, MG, CMP ####[facility] Lgzcrurffs83[address] [place] [address]Dr. Ivette Hernandez Sodium [Moles/Vol] 141 mmol/L Normal 136-145 [facility] Comment on above: Performed By: #### B MAGAZINE WORKER, PHOS, MG, CMP ####[facility] Ikotrrfclb[address] [place], [place] [address]Dr. Cherlan Hernandez Urea nitrogen [Mass/Vol] 19.0 mg/dL Critically high 7.0-18.0 [facility] Comment on above: Performed By: #### B MAGAZINE WORKER, PHOS, MG, CMP ####[facility] Ijimtobvxv5992 [place] [address]Dr. Ivette Hernandez Urea nitrogen/Creatinine [Mass ratio] 12.9 mg/mg Normal [facility] Comment on above: Performed By: #### B MAGAZINE WORKER, PHOS, MG, CMP ####[facility] Vayjslvlyq80[address] [place] [address]Dr. Ivette Hernandez BNPon 03-08-2022 Natriuretic peptide B (Bld) [Mass/Vol] 70602.0 pg/mL Critically high <=900.[address] [facility] Comment on above: Performed By: #### B MAGAZINE WORKER, CMP, HSTROPN ####[facility] Zwdtpxbcqi8499 [place] [address]Dr. Ivette Hernandez CBC AUTO DIFFon 03-08-2022 BASO # 0.0 103/ul Normal 0.0-0.1 [facility] Comment on above: Performed By: #### C BC ####[facility] Dkwharfgtl12[address] [place], [place] [address]Dr. Ivette Hernandez Basophils/100 WBC (Bld) 0.4 % Normal 0.2-2.0 [facility] Comment on above: Performed By: #### C BC ####[facility] Gdhzvaacpd[address] [place], [place] [address]Dr. Ivette Hernandez EO # 0.3 103/ul Normal 0.0-0.7 [facility] Comment on above: Performed By: #### C BC ####[facility] Uugdfmjrse[address] [place], [place] [address]Dr. Cherjun Hernandez Eosinophils/100 WBC (Bld) 2.5 % Normal 0.9-7.0 [facility] Comment on above: Performed By: #### C BC ####[facility] Knaoddorpd[address] [place], [place] [address]Dr. Cherjun Hernandez Erythrocyte distribution width (RBC) [Ratio] 14.0 % Normal 11.0-15.0 [facility] Comment on above: Performed By: #### C BC ####[facility] Dtvookkrlb[address] [place], [place] [address]Dr. Ivette Hernandez Hematocrit (Bld) [Volume fraction] 29.7 % Critically low 36.0-48.0 [facility] Comment on above: Performed By: #### C BC ####[facility] Ljgcmkcynl[address] [place], [place] [id number]. Ivette Hernandez Hemoglobin (Bld) [Mass/Vol] 9.2 g/dL Critically low 12.0-16.0 [facility] Comment on above: Performed By: #### C BC ####[facility] Rduxdpenye17[address] [place] [address]Dr. Ivette Hernandez IG # 0.08 10e3/ul Critically high 0.00-0.03 [facility] Comment on above: Performed By: #### C BC ####[facility] Cchdsixcei4[address] [place] [address]Dr. Ivette Hernandez IG % 0.8 % Critically high 0.0-0.5 [facility] Comment on above: Performed By: #### C BC ####[facility] Lwntstuazy[address] [place] [address]Dr. Ivette Hernandez LYMPH # 2.5 103/ul Normal 1.2-3.8 [facility] Comment on above: Performed By: #### C BC ####[facility] Gyytfswjqn8956 [place] [address]Dr. Cherjun Hernandez Lymphocytes/100 WBC (Bld) 24.8 % Normal 20.5-60.0 [facility] Comment on above: Performed By: #### C BC ####[facility] Tfvfgmmjxn4435 [place] [address]Dr. Ivette Hernandez MANUAL DIFF REQ NO Normal [facility] Comment on above: Performed By: #### C BC ####[facility] Usmtospylz080[address] [place] [address]Dr. Ivette Hernandez MCH (RBC) [Entitic mass] 28.5 pg Normal 26.7-34.0 [facility] Comment on above: Performed By: #### C BC ####[facility] Exfilbjmcn[address] [place], [place] [address]Dr. Ivette David MCHC (RBC) [Mass/Vol] 31.0 g/dL Normal 29.9-35.2 [facility] Comment on above: Performed By: #### C BC ####[facility] Qbefhtlljq[address] [place], [place] [address]Dr. Ivette David MCV (RBC) [Entitic vol] 92.0 fL Normal 81.0-99.0 [facility] Comment on above: Performed By: #### C BC ####[facility] Uipqhelblv9[address] [place] [address]Dr. Ivette Hernandez MONO # 0.6 103/ul Normal 0.3-0.8 [facility] Comment on above: Performed By: #### C BC ####[facility] Tgyxkhofxk4[address] [place], [place] [address]Dr. Cherjun David Monocytes/100 WBC (Bld) 6.3 % Normal 1.7-12.0 [facility] Comment on above: Performed By: #### C BC ####[facility] Wseaxbrrkk4[address] [place], [place] [address]Dr. Cherjun Hernandez NEUT # 6.6 103/ul Critically high 1.4-6.5 [facility] Comment on above: Performed By: #### C BC ####[facility] Jxwrsynxxs[address] [place], [place] [address]Dr. Cherjun Hernandez Neutrophils/100 WBC (Bld) 65.2 % Normal 43.0-75.0 [facility] Comment on above: Performed By: #### C BC ####[facility] Fjlcsyimfz[address] [place], [place] [address]Dr. Ivette David Platelet mean volume (Bld) [Entitic vol] 9.7 fL Normal 9.5-13.5 [facility] Comment on above: Performed By: #### C BC ####[facility] Rrjronhpcb[address] [place], [place] [address]Dr. Cherjun David PLT 328 103/ul Normal 150-450 [facility] Comment on above: Performed By: #### C BC ####[facility] Oaebxrivom[address] [place], [place] [address]DrJesse Kwonjun David RBC 3.23 106/ul Critically low 4.20-5.40 [facility] Comment on above: Performed By: #### C BC ####[facility] Xhsfnhgstw[address] [place], [place] [address]DrJesse Hernandez WBC 10.1 103/ul Normal 4.0-11.0 [facility] Comment on above: Performed By: #### C BC ####[facility] Rkdfphzrhq9[address] [place] [address]Dr. Ivette Hernandez BASO # 0.0 103/ul Normal 0.0-0.1 [facility] Comment on above: Performed By: #### C BC ####[facility] Apxgckomqm4[address] [place], [place] [address]Dr. Ivette Hernandez Basophils/100 WBC (Bld) 0.4 % Normal 0.2-2.0 [facility] Comment on above: Performed By: #### C BC ####[facility] P[address]ukbvnmvz[address] [place], [place] [address]Dr. Ivette Hernandez EO # 0.2 103/ul Normal 0.0-0.7 [facility] Comment on above: Performed By: #### C BC ####[facility] Imwjysedqk[address] [place], [place] [address]Dr. Ivette Hernandez Eosinophils/100 WBC (Bld) 2.9 % Normal 0.9-7.0 [facility] Comment on above: Performed By: #### C BC ####[facility] Hcjvhmlocw[address] [place], [place] [address]Dr. Ivette Hernandez Erythrocyte distribution width (RBC) [Ratio] 14.2 % Normal 11.0-15.0 [facility] Comment on above: Performed By: #### C BC ####[facility] Fbbzzjcwft[address] [place], [place] [address]Dr. Ivette Hernandez Hematocrit (Bld) [Volume fraction] 27.7 % Critically low 36.0-48.0 [facility] Comment on above: Performed By: #### C BC ####[facility] [address]xeb[address] [place], [place] [address]Dr. Ivette Hernandez Hemoglobin (Bld) [Mass/Vol] 8.5 g/dL Critically low 12.0-16.0 [facility] Comment on above: Performed By: #### C BC ####[facility] Thxkdlpwny[address] [place], [place] [id number]. Ivette Hernandez IG # 0.04 10e3/ul Critically high 0.00-0.[address] [facility] Comment on above: Performed By: #### C BC ####[facility] Zpoqelpgzm57[address] [place] [address]Dr. Ivette Hernandez IG % 0.5 % Normal 0.0-0.[address] [facility] Comment on above: Performed By: #### C BC ####[facility] V[address]cp[address]pc[address] [place], [place] [address]DrJesse Hernandez LYMPH # 2.1 103/ul Normal 1.2-3.8 [facility] Comment on above: Performed By: #### C BC ####[facility] Wglamgaqrh[address] [place], [place] [address]DrJesse Hernandez Lymphocytes/100 WBC (Bld) 27.3 % Normal 20.5-60.0 [facility] Comment on above: Performed By: #### C BC ####[facility] Imnanqidli[address] [place], [place] [address]DrJesse Hernandez MANUAL DIFF REQ NO Normal [facility] Comment on above: Performed By: #### C BC ####[facility] Oiezuoolgp[address] [place], [place] [address]DrJesse Hernandez MCH (RBC) [Entitic mass] 28.1 pg Normal 26.7-34.0 [facility] Comment on above: Performed By: #### C BC ####[facility] Xffnz[address] [place], [place] [address]DrJesse Hernandez MCHC (RBC) [Mass/Vol] 30.7 g/dL Normal 29.9-35.2 [facility] Comment on above: Performed By: #### C BC ####[facility] [address]jmkpsfqu[address] [place], [place] [address]DrJesse Hernandez MCV (RBC) [Entitic vol] 91.4 fL Normal 81.0-99.0 [facility] Comment on above: Performed By: #### C BC ####[facility] Venijfzzqr[address] [place], [place] [address]DrJesse Hernandez MONO # 0.5 103/ul Normal 0.3-0.8 [facility] Comment on above: Performed By: #### C BC ####[facility] Ixqivfckpt94[address] [place] [id number]. Ivette Hernandez Monocytes/100 WBC (Bld) 6.1 % Normal 1.7-12.0 [facility] Comment on above: Performed By: #### C BC ####[facility] Fyjoehjdhj2482 [place] [address]Dr. Ivette Hernandez NEUT # 4.9 103/ul Normal 1.4-6.5 [facility] Comment on above: Performed By: #### C BC ####[facility] Atqbztickp0[address] [place] [address]Dr. Ivette Hernandez Neutrophils/100 WBC (Bld) 62.8 % Normal 43.0-75.0 [facility] Comment on above: Performed By: #### C BC ####[facility] Hgolbypooo[address] [place], [place] [address]Dr. Ivette Hernandez Platelet mean volume (Bld) [Entitic vol] 9.7 fL Normal 9.5-13.5 [facility] Comment on above: Performed By: #### C BC ####[facility] Gnehrsgidy2983 [place] [address]Dr. Ivette Hernandez PLT 227 103/ul Normal 150-450 [facility] Comment on above: Performed By: #### C BC ####[facility] Xqcmtarhma7151 [place] [id number]. Ivette Hernandez RBC 3.03 106/ul Critically low 4.20-5.40 [facility] Comment on above: Performed By: #### C BC ####[facility] Jfjhxlrzxp9829 [place] [id number]. Ivette Hernandez WBC 7.8 103/ul Normal 4.0-11.0 [facility] Comment on above: Performed By: #### C BC ####[facility] Zhimbsaixp62[address] [place] [id number]. Ivette Hernandez CT HEAD WO CONon 03-08-2022 CT HEAD WO CON Normal [facility] CTA HEAD WO W CONon 03-08-20 22 CTA HEAD WO W CON Normal [facility] Covid-19 PCR ([facility])on SARS-CoV-2 (COVID-19) RNA MARRY+probe Ql (Unsp spec) Not detected Normal NOT DETECTED [facility] Comment on above: Result Comment: When diagnostic testing is negative, the possibility of a false negative should be considered inthe context of a patient's recent exposures and the presence of clinical signs and symptomsconsistent with SARS-CoV-2.This test is not yet approved or cleared by the [place] FDA. When there are no FDA-approved or cleared tests available, and other criteria are met, FDA can make tests available under an emergency access mechanism called an Emergency Use Authorization (EUA). The EUA for this test is supported by the [place] of Health and Human Service's declaration that circumstances exist to justify the emergency use of in vitro diagnostics for the detection and/or diagnosis of the virus that causes COVID-19. This EUA will remain in effect for the duration of the COVID-19 declaration justifying emergency of IVDs, unless it is terminated or revoked by the FDA (after which the test may no longer be used). Performed By: #### C VDTBH ####[facility] Nbwhuougsw6[address] [place] [address]Dr. Ivette Hernandez PROF 14(COMP METB)on 022 Albumin [Mass/Vol] 2.6 g/dL Critically low 3.4-5.0 [facility] Comment on above: Performed By: #### B MAGAZINE WORKER, CMP, HSTROPN ####[facility] Iytchdvjse12[address] [place] [address]Dr. Ivette Hernandez Albumin/Globulin [Mass ratio] 0.6 {ratio} Normal [facility] Comment on above: Performed By: #### B MAGAZINE WORKER, CMP, HSTROPN ####[facility] Cpfcmtfmol6597 [place] [address]Dr. Ivette Hernandez ALP [Catalytic activity/Vol] 68 U/L Normal 46-116 [facility] Comment on above: Performed By: #### B MAGAZINE WORKER, CMP, HSTROPN ####[facility] Wwmbffczfs8575 [place] [address]Dr. Ivette Hernandez ALT [Catalytic activity/Vol] 16 U/L Normal 14-[address] [facility] Comment on above: Performed By: #### B MAGAZINE WORKER, CMP, HSTROPN ####[facility] Tltpsneenl1085 [place] [address]Dr. Ivette Hernandez Anion gap [Moles/Vol] 6.8 mmol/L Normal [facility] Comment on above: Performed By: #### B MAGAZINE WORKER, CMP, HSTROPN ####[facility] Jgdxwkqcno8303 [place] [address]Dr. Ivette Hernandez AST [Catalytic activity/Vol] 18 U/L Normal 15-[address] [facility] Comment on above: Performed By: #### B MAGAZINE WORKER, CMP, HSTROPN ####[facility] Jgpbjixiui7734 [place] [address]Dr. Ivette Hernandez Bilirubin [Mass/Vol] 0.5 mg/dL Normal 0.2-1.[address] [facility] Comment on above: Performed By: #### B MAGAZINE WORKER, CMP, HSTROPN ####[facility] Gvcwstrove6141 [place] [address]Dr. Ivette Hernandez Calcium [Mass/Vol] 8.2 mg/dL Critically low 8.5-10.1 [facility] Comment on above: Performed By: #### B MAGAZINE WORKER, CMP, HSTROPN ####[facility] Swxorrpygo8023 [place] [address]Dr. Ivette Hernandez Chloride [Moles/Vol] 97 mmol/L Critically low 98-107 [facility] Comment on above: Performed By: #### B MAGAZINE WORKER, CMP, HSTROPN ####[facility] Mzqdxebnyk8920 [place] [address]Dr. Ivette Hernandez CO2 [Moles/Vol] 37.9 mmol/L Critically high 21.0-32.[address] [facility] Comment on above: Performed By: #### B MAGAZINE WORKER, CMP, HSTROPN ####[facility] Eulnbgksgj8102 [place] [address]Dr. Ivette Hernandez Creatinine [Mass/Vol] 1.65 mg/dL Critically high 0.55-1.[address] [facility] Comment on above: Performed By: #### B MAGAZINE WORKER, CMP, HSTROPN ####[facility] Copjmylbyz8335 [place] [address]Dr. Ivette Hernandez EGFR-AF AUSTRALIAN 37 mL/min/1.73m2 Critically low >=60 [facility] Comment on above: Performed By: #### B MAGAZINE WORKER, CMP, HSTROPN ####[facility] Xlwoxdcqhq[address] [place], [place] [address]Dr. Ivette Hernandez EGFR-NON AF AUSTRALIAN 30 mL/min/1.73m2 Critically low >=60 [facility] Comment on above: Performed By: #### B MAGAZINE WORKER, CMP, HSTROPN ####[facility] Y[address]jfdwqwno[address] [place], [place] [address]Dr. Ivette Hernandez Globulin (S) [Mass/Vol] 4.7 g/dL Normal [facility] Comment on above: Performed By: #### B MAGAZINE WORKER, CMP, HSTROPN ####[facility] Edkucxmkqd[address] [place], [place] [address]Dr. Ivette Hernandez Glucose [Mass/Vol] 203 mg/dL Critically high 74-106 [facility] Comment on above: Performed By: #### B MAGAZINE WORKER, CMP, HSTROPN ####[facility] Aoakmmqbnh[address] [place], [place] [address]Dr. Ivette Hernandez Potassium [Moles/Vol] 3.7 mmol/L Normal 3.5-5.1 [facility] Comment on above: Performed By: #### B MAGAZINE WORKER, CMP, HSTROPN ####[facility] Adpqoqnyfz[address] [place], [place] [address]Dr. Ivette Hernandez Protein [Mass/Vol] 7.3 g/dL Normal 6.4-8.2 [facility] Comment on above: Performed By: #### B MAGAZINE WORKER, CMP, HSTROPN ####[facility] Sdevtpaqbx[address] [place], [place] [address]Dr. Ivette Hernandez Sodium [Moles/Vol] 138 mmol/L Normal 136-[address] [facility] Comment on above: Performed By: #### B MAGAZINE WORKER, CMP, HSTROPN ####[facility] Mwgdvaegar6787 [place] [address]Dr. Ivette Hernandez Urea nitrogen [Mass/Vol] 22.0 mg/dL Critically high 7.0-18.[address] [facility] Comment on above: Performed By: #### B MAGAZINE WORKER, CMP, HSTROPN ####[facility] Rdtmxdemoh7371 [place] [address]Dr. Ivette Hernandez Urea nitrogen/Creatinine [Mass ratio] 13.3 mg/mg Normal [facility] Comment on above: Performed By: #### B MAGAZINE WORKER, CMP, HSTROPN ####[facility] Qfuzibdafx1553 [place] [address]Dr. Ivette Hernandez PROF CHEM 8 (BAS METB)on Anion gap [Moles/Vol] 6.0 mmol/L Normal [facility] Comment on above: Performed By: #### B MP ####[facility] Czlwiceicf8538 [place] [address]Dr. Ivette Hernandez Calcium [Mass/Vol] 8.0 mg/dL Critically low 8.5-10.1 [facility] Comment on above: Performed By: #### B MP ####[facility] Nqvzlkezez8878 [place] [address]Dr. Ivette Hernandez Chloride [Moles/Vol] 98 mmol/L Normal 98-107 [facility] Comment on above: Performed By: #### B MP ####[facility] Lvjm[address]nykv[address] [place], [place] [address]Dr. Ivette Hernandez CO2 [Moles/Vol] 39.9 mmol/L Critically high 21.0-32.0 [facility] Comment on above: Performed By: #### B MP ####[facility] Aalupvuzfc5174 [place] [address]Dr. Ivette Hernandez Creatinine [Mass/Vol] 1.56 mg/dL Critically high 0.55-1.[address] [facility] Comment on above: Performed By: #### B MP ####[facility] Rdkhpfgxvg9593 [place] [id number]. Ivette Hernandez EGFR-AF AUSTRALIAN 39 mL/min/1.73m2 Critically low >=[address] [facility] Comment on above: Performed By: #### B MP ####[facility] Uooucmmohj4494 [place] [id number]. Ivette David EGFR-NON AF AUSTRALIAN 33 mL/min/1.73m2 Critically low >=[address] [facility] Comment on above: Performed By: #### B MP ####[facility] Nkliobqkhg6763 [place] [id number]. Cherjun David Glucose [Mass/Vol] 143 mg/dL Critically high 74-106 T [facility] Comment on above: Performed By: #### B MP ####[facility] Jgxqiybpfe7420 [place] [address]Dr. Ivette Hernandez Potassium [Moles/Vol] 3.9 mmol/L Normal 3.5-5.[address] [facility] Comment on above: Performed By: #### B MP ####[facility] Jtqyvdjuns9154 [place] [address]Dr. Ivette Hernandez Sodium [Moles/Vol] 140 mmol/L Normal 136-[address] [facility] Comment on above: Performed By: #### B MP ####[facility] Tqwjqilgmm1341 [place] [address]Dr. Cherjun David Urea nitrogen [Mass/Vol] 23.0 mg/dL Critically high 7.0-18.[address] [facility] Comment on above: Performed By: #### B MP ####[facility] Fzgtlmjofe4908 [place] [id number]. Ivette Hernandez Urea nitrogen/Creatinine [Mass ratio] 14.7 mg/mg Normal [facility] Comment on above: Performed By: #### B MP ####[facility] Uawzjomhsz5884 [place] [address]Dr. Cherjun David PROTIMEon 03-08-2022 INR Coag (PPP) [Relative time] 1.11 {INR} Normal [facility] Comment on above: Performed By: #### P T, PTT ####[facility] Wmlbalrjez6574 [place] [address]Dr. Ivette Hernandez INR GUIDELINES SEE BELOW Normal [facility] Comment on above: Result Comment: MELANIE RED INR: 2.0 - 3.0 CONDITIONS NOT LISTED BELOW 2.5 - 3.5 FOR PROSTHETIC HEART VALVE REPLACEMENT 2.5 - 3.5 RECURRENT THROMBOSIS Performed By: #### P T, PTT ####[facility] Ztlywmtenv7445 [place] [address]Dr. Ivette Hernandez PT Coag (PPP) [Time] 11.9 s Critically high 9.0-11.6 [facility] Comment on above: Performed By: #### P T, PTT ####[facility] Nywjwcgtek7960 [place] [address]Dr. Cherjun Hernandez PTTon 03-08-2022 aPTT Coag (Bld) [Time] 29.0 s Normal 22.3-36.2 [facility] Comment on above: Performed By: #### P T, PTT ####[facility] Ybyyjalsvw9560 [place] [address]Dr. Ivette Hernandez TROPONIN, HIGH SENSITIVITYon 03-08-2022 HSTROP 74.2 pg/mL Critically high 4.0-51.3 [facility] Comment on above: Result Comment: CUT- OFF POINTS HAVE BEEN ESTABLISHED BASED ON THE FOURTH UNIVERSAL DEFINITIONS OF MYOCARDIALINFARCTION. THE UPPER REFERENCE LIMIT (URL) OF TROPONIN, DEFINED THE 99TH PERCENTILE OFcTnI DISTRIBUTION IN A REFERENCE POPULATION, HAS BEEN CONFIRMED THE DECISION THRESHOLDFOR ID DIAGNOSIS. Performed By: #### B MAGAZINE WORKER, CMP, HSTROPN ####[facility] Mzswprmmpz5848 [place] [address]Dr. Ivette Hernandez XR CHEST 1 Von 03-08-2022 XR CHEST 1 V Normal [facility] CBC AUTO DIFFon 03-07-2022 BASO # 0.0 103/ul Normal 0.0-0.1 [facility] Comment on above: Performed By: #### C BC ####[facility] Nrqfbaaial8574 [place] [id number]. Ivette Hernandez Basophils/100 WBC (Bld) 0.5 % Normal 0.2-2.0 [facility] Comment on above: Performed By: #### C BC ####[facility] Asokoxedzs4744 [place] [address]Dr. Ivette Hernandez EO # 0.3 103/ul Normal 0.0-0.7 [facility] Comment on above: Performed By: #### C BC ####[facility] Xaudmssgmr[address] [place], [place] [address]Dr. Ivette Hernandez Eosinophils/100 WBC (Bld) 3.9 % Normal 0.9-7.0 [facility] Comment on above: Performed By: #### C BC ####[facility] Zhjxpxsind39[address] [place], [place] [address]Dr. Ivette Hernandez Erythrocyte distribution width (RBC) [Ratio] 14.1 % Normal 11.0-15.0 [facility] Comment on above: Performed By: #### C BC ####[facility] Ukqpkwyavj[address] [place], [place] [address]Dr. Ivette Hernandez Hematocrit (Bld) [Volume fraction] 26.9 % Critically low 36.0-48.0 [facility] Comment on above: Performed By: #### C BC ####[facility] Ynojskfije[address] [place], [place] [id number]. Ivette Hernandez Hemoglobin (Bld) [Mass/Vol] 8.1 g/dL Critically low 12.0-16.0 [facility] Comment on above: Performed By: #### C BC ####[facility] Xqznkkfruz[address] [place], [place] [address]Dr. Ivette Hernandez IG # 0.06 10e3/ul Critically high 0.00-0.03 [facility] Comment on above: Performed By: #### C BC ####[facility] Nsbxumrqoi[address] [place], [place] [address]Dr. Ivette Hernandez IG % 0.8 % Critically high 0.0-0.5 [facility] Comment on above: Performed By: #### C BC ####[facility] Vlsmzfnmay3001 [place] [id number]. Ivette Hernandez LYMPH # 1.7 103/ul Normal 1.2-3.8 [facility] Comment on above: Performed By: #### C BC ####[facility] Mihqfnafur1922 [place] [phone]. Ivette Hernandez Lymphocytes/100 WBC (Bld) 21.9 % Normal 20.5-60.0 [facility] Comment on above: Performed By: #### C BC ####[facility] Xjgcrlrqbm9278 [place] [phone]. Ivette David MANUAL DIFF REQ NO Normal [facility] Comment on above: Performed By: #### C BC ####[facility] Uqghlrhvje0860 [place] [phone]. Ivette Hernandez MCH (RBC) [Entitic mass] 28.2 pg Normal 26.7-34.0 [facility] Comment on above: Performed By: #### C BC ####[facility] Ifaiwklooq8131 [place] [phone]. Ivette Hernandez MCHC (RBC) [Mass/Vol] 30.1 g/dL Normal 29.9-35.2 [facility] Comment on above: Performed By: #### C BC ####[facility] Aasaszgeps6593 [place] [phone]. Ivette Hernandez MCV (RBC) [Entitic vol] 93.7 fL Normal 81.0-99.0 [facility] Comment on above: Performed By: #### C BC ####[facility] Vwqlphypxt5800 [place] [phone]. Ivette Hernandez MONO # 0.5 103/ul Normal 0.3-0.8 [facility] Comment on above: Performed By: #### C BC ####[facility] Cdzudijtfx2562 [place] [phone]. Ivette David Monocytes/100 WBC (Bld) 6.5 % Normal 1.7-12.0 [facility] Comment on above: Performed By: #### C BC ####[facility] Epkdyxuniu4908 [place] [phone]. Ivette Hernandez NEUT # 5.3 103/ul Normal 1.4-6.5 [facility] Comment on above: Performed By: #### C BC ####[facility] Bdloigcris6137 [place] [phone]. Ivette Hernandez Neutrophils/100 WBC (Bld) 66.4 % Normal 43.0-75.0 [facility] Comment on above: Performed By: #### C BC ####[facility] Oxnmsokvsb4028 [place] [address]Dr. Ivette Hernandez Platelet mean volume (Bld) [Entitic vol] 9.9 fL Normal 9.5-13.[address] [facility] Comment on above: Performed By: #### C BC ####[facility] Tiuquvmdxw4732 [place] [address]Dr. Cherjun Hernandez PLT 229 103/ul Normal 150-450 [facility] Comment on above: Performed By: #### C BC ####[facility] Kdsiclifya0751 [place] [address]Dr. Ivette David RBC 2.87 106/ul Critically low 4.20-5.[address] [facility] Comment on above: Performed By: #### C BC ####[facility] Lqbokancpq5319 [place] [address]Dr. Ivette Hernandez WBC 7.9 103/ul Normal 4.0-11.0 [facility] Comment on above: Performed By: #### C BC ####[facility] Nzfkirvwtz0452 [place] [address]Dr. Cherjun Hernandez PROF CHEM 8 (BAS METB)on Anion gap [Moles/Vol] 2.9 mmol/L Normal [facility] Comment on above: Performed By: #### B MP ####[facility] Ncbuzkuwpf1041 [place] [address]Dr. Ivette Hernandez Calcium [Mass/Vol] 7.5 mg/dL Critically low 8.5-10.1 [facility] Comment on above: Performed By: #### B MP ####[facility] Wffbwhlmic6891 [place] [phone]. Ivette Hernandez Chloride [Moles/Vol] 102 mmol/L Normal 98-[address] [facility] Comment on above: Performed By: #### B MP ####[facility] Mwkpmperkk8778 [place] [phone]. Ivette Hernandez CO2 [Moles/Vol] 41.1 mmol/L Critically high 21.0-32.0 [facility] Comment on above: Performed By: #### B MP ####[facility] Ylffpsijim0136 [place] [address]Dr. Ivette Hernandez Creatinine [Mass/Vol] 1.58 mg/dL Critically high 0.55-1.[address] [facility] Comment on above: Performed By: #### B MP ####[facility] Bukffthjhh[address] [place], [place] [address]Dr. Ivette Hernandez EGFR-AF AUSTRALIAN 39 mL/min/1.73m2 Critically low >=60 [facility] Comment on above: Performed By: #### B MP ####[facility] Kbjqphraqz72[address] [place], [place] [address]Dr. Ivette Hernandez EGFR-NON AF AUSTRALIAN 32 mL/min/1.73m2 Critically low >=[address] [facility] Comment on above: Performed By: #### B MP ####[facility] Hdbozimcxy9855 [place] [address]Dr. Ivette Hernandez Glucose [Mass/Vol] 115 mg/dL Critically high 74-106 [facility] Comment on above: Performed By: #### B MP ####[facility] Icomzohxcx8256 [place] [phone]. Cherjun Hernandez Potassium [Moles/Vol] 4.0 mmol/L Normal 3.5-5.1 [facility] Comment on above: Performed By: #### B MP ####[facility] C[address]rorqmbqw[address] [place], [place] [address]Dr. Ivette Hernandez Sodium [Moles/Vol] 142 mmol/L Normal 136-145 [facility] Comment on above: Performed By: #### B MP ####[facility] Iewxzjcnyv5243 [place] [phone]. Ivette David Urea nitrogen [Mass/Vol] 23.0 mg/dL Critically high 7.0-18.0 [facility] Comment on above: Performed By: #### B MP ####[facility] Qlgnwddnky[address] [place], [place] [address]Dr. Ivette Hernandez Urea nitrogen/Creatinine [Mass ratio] 14.6 mg/mg Normal [facility] Comment on above: Performed By: #### B MP ####[facility] Vaqzpjsibv12[address] [place], [place] [address]Dr. Ivette Hernandez CBC AUTO DIFFon 03-06-2022 BASO # 0.0 103/ul Normal 0.0-0.1 [facility] Comment on above: Performed By: #### C BC ####[facility] Erfuezsnah22[address] [place], [place] [address]Dr. Ivette Hernandez Basophils/100 WBC (Bld) 0.3 % Normal 0.2-2.0 [facility] Comment on above: Performed By: #### C BC ####[facility] Ylyncysqhn80[address] [place], [place] [address]Dr. Ivette Hernandez EO # 0.2 103/ul Normal 0.0-0.7 [facility] Comment on above: Performed By: #### C BC ####[facility] Mrgleoakgm39[address] [place], [place] [address]Dr. Ivette Hernandez Eosinophils/100 WBC (Bld) 2.4 % Normal 0.9-7.0 [facility] Comment on above: Performed By: #### C BC ####[facility] Jlcqjyklmf8[address] [place], [place] [address]Dr. Ivette Hernandez Erythrocyte distribution width (RBC) [Ratio] 14.3 % Normal 11.0-15.0 [facility] Comment on above: Performed By: #### C BC ####[facility] Vrvpsbelyr60[address] [place], [place] [address]Dr. Ivette Hernandez Hematocrit (Bld) [Volume fraction] 27.2 % Critically low 36.0-48.0 [facility] Comment on above: Performed By: #### C BC ####[facility] Geheykkdqp3020 [place] [phone]. Ivette Hernandez Hemoglobin (Bld) [Mass/Vol] 7.8 g/dL Critically low 12.0-16.[address] [facility] Comment on above: Performed By: #### C BC ####[facility] Uklbpjwmdg1574 [place] [phone]. Ivette Hernandez IG # 0.07 10e3/ul Critically high 0.00-0.[address] [facility] Comment on above: Performed By: #### C BC ####[facility] Hteogbndph9613 [place] [address]Dr. Ivette Hernandez IG % 0.8 % Critically high 0.0-0.[address] [facility] Comment on above: Performed By: #### C BC ####[facility] Ywzictavpr[address] [place], [place] [address]Dr. Cherjun Hernandez LYMPH # 1.8 103/ul Normal 1.2-3.8 [facility] Comment on above: Performed By: #### C BC ####[facility] Sfkptdgswv2819 [place] [address]Dr. Ivette David Lymphocytes/100 WBC (Bld) 21.2 % Normal 20.5-60.[address] [facility] Comment on above: Performed By: #### C BC ####[facility] Adknovitsv7692 [place] [address]Dr. Cherjun Hernandez MANUAL DIFF REQ NO Normal [facility] Comment on above: Performed By: #### C BC ####[facility] Tnjzpzredz2081 [place] [phone]. Ivette David MCH (RBC) [Entitic mass] 27.6 pg Normal 26.7-34.0 [facility] Comment on above: Performed By: #### C BC ####[facility] Mcchfvcwxr0844 [place] [phone]. Ivette David MCHC (RBC) [Mass/Vol] 28.7 g/dL Critically low 29.9-35.[address] [facility] Comment on above: Performed By: #### C BC ####[facility] Twwfakznmp7869 [place] [phone]. Ivette Hernandez MCV (RBC) [Entitic vol] 96.1 fL Normal 81.0-99.0 [facility] Comment on above: Performed By: #### C BC ####[facility] Brcidxfrxa6568 [place] [phone]. Ivette Hernandez MONO # 0.6 103/ul Normal 0.3-0.8 [facility] Comment on above: Performed By: #### C BC ####[facility] Cicvhwxmwk9987 [place] [phone]. Ivette David Monocytes/100 WBC (Bld) 6.8 % Normal 1.7-12.0 [facility] Comment on above: Performed By: #### C BC ####[facility] Clvdgoyixl[address] [place], [place] [address]Dr. Ivette Hernandez NEUT # 5.9 103/ul Normal 1.4-6.5 [facility] Comment on above: Performed By: #### C BC ####[facility] Bxdzsnvwxy[address] [place], [place] [address]Dr. Ivette Hernandez Neutrophils/100 WBC (Bld) 68.5 % Normal 43.0-75.0 [facility] Comment on above: Performed By: #### C BC ####[facility] Jiwqkafekd[address] [place], [place] [address]Dr. Ivette David Platelet mean volume (Bld) [Entitic vol] 9.9 fL Normal 9.5-13.5 [facility] Comment on above: Performed By: #### C BC ####[facility] Uqwvpkpogo5618 [place] [phone]. Ivette David PLT 193 103/ul Normal 150-450 [facility] Comment on above: Performed By: #### C BC ####[facility] Gvggesmrti3825 [place] [phone]. Cherjun David RBC 2.83 106/ul Critically low 4.20-5.40 [facility] Comment on above: Performed By: #### C BC ####[facility] Qtuvnyazsw5576 [place] [phone]. Ivette David WBC 8.7 103/ul Normal 4.0-11.[address] [facility] Comment on above: Performed By: #### C BC ####[facility] Xvamzicljk4407 [place] [place] [id number]. Cherjun Hernandez PROF CHEM 8 (BAS METB)on Anion gap [Moles/Vol] 2.7 mmol/L Normal [facility] Comment on above: Performed By: #### B MP ####[facility] Qqyluvnzpr2107 [place] [address]Dr. Ivette Hernandez Calcium [Mass/Vol] 7.6 mg/dL Critically low 8.5-10.1 [facility] Comment on above: Performed By: #### B MP ####[facility] Exenryec[address] [place], [place] [address]Dr. Ivette Hernandez Chloride [Moles/Vol] 103 mmol/L Normal 98-107 [facility] Comment on above: Performed By: #### B MP ####[facility] Lxmmnxjbzn33[address] [place], [place] [address]Dr. Cherjun Hernandez CO2 [Moles/Vol] 41.1 mmol/L Critically high 21.0-32.[address] [facility] Comment on above: Performed By: #### B MP ####[facility] Sexnzlatjn[address] [place], [place] [address]Dr. Ivette Hernandez Creatinine [Mass/Vol] 1.61 mg/dL Critically high 0.55-1.[address] [facility] Comment on above: Performed By: #### B MP ####[facility] Jtqwfejbxj[address] [place], [place] [address]Dr. Ivette Hernandez EGFR-AF AUSTRALIAN 38 mL/min/1.73m2 Critically low >=60 [facility] Comment on above: Performed By: #### B MP ####[facility] Dsbbzmggpv0691 [place] [address]Dr. Ivette Hernandez EGFR-NON AF AUSTRALIAN 31 mL/min/1.73m2 Critically low >=60 [facility] Comment on above: Performed By: #### B MP ####[facility] Dwstolxbmd2822 [place] [address]Dr. Ivette Hernandez Glucose [Mass/Vol] 124 mg/dL Critically high 74-106 T [facility] Comment on above: Performed By: #### B MP ####[facility] Gqvalzjdlv6411 [place] [address]Dr. Ivette Hernandez Potassium [Moles/Vol] 3.8 mmol/L Normal 3.5-5.[address] [facility] Comment on above: Performed By: #### B MP ####[facility] Dkrgtacgwv4[address] [place], [place] [address]Dr. Ivette Hernandez Sodium [Moles/Vol] 143 mmol/L Normal 136-145 [facility] Comment on above: Performed By: #### B MP ####[facility] Pnzmaazpso45[address] [place], [place] [address]Dr. Ivette Hernandez Urea nitrogen [Mass/Vol] 26.0 mg/dL Critically high 7.0-18.[address] [facility] Comment on above: Performed By: #### B MP ####[facility] Vysmayfutx[address] [place], [place] [address]Dr. Ivette Hernandez Urea nitrogen/Creatinine [Mass ratio] 16.1 mg/mg Normal [facility] Comment on above: Performed By: #### B MP ####[facility] Nnrwxuksts9[address] [place], [place] [address]Dr. Ivette David BNPon 03-05-2022 Natriuretic peptide B (Bld) [Mass/Vol] 90898.0 pg/mL Critically high <=900.[address] [facility] Comment on above: Performed By: #### H STROPN, BNP, CMP ####[facility] Dmafqltwzn34[address] [place], [place] [address]Dr. Ivette Hernandez CBC AUTO DIFFon 03-05-2022 BASO # 0.0 103/ul Normal 0.0-0.[address] [facility] Comment on above: Performed By: #### C BC ####[facility] Wzxzhcdkaf39[address] [place], [place] [address]Dr. Ivette Hernandez Basophils/100 WBC (Bld) 0.4 % Normal 0.2-2.0 [facility] Comment on above: Performed By: #### C BC ####[facility] Tahteabqzo60[address] [place], [place] [address]Dr. Ivette Hernandez EO # 0.4 103/ul Normal 0.0-0.7 [facility] Comment on above: Performed By: #### C BC ####[facility] Huwinwptfk7225[address] [place], [place] [address]Dr. Ivette Hernandez Eosinophils/100 WBC (Bld) 3.1 % Normal 0.9-7.0 [facility] Comment on above: Performed By: #### C BC ####[facility] Cxtuyxxvxm7[address] [place], [place] [address]Dr. Ivette Hernandez Erythrocyte distribution width (RBC) [Ratio] 14.5 % Normal 11.0-15.0 [facility] Comment on above: Performed By: #### C BC ####[facility] Kmfuvfyxnx22[address] [place], [place] [address]Dr. Ivette Hernandez Hematocrit (Bld) [Volume fraction] 25.3 % Critically low 36.0-48.0 [facility] Comment on above: Performed By: #### C BC ####[facility] Umerpyrtao256[address] [place], [place] [address]Dr. Ivette Hernandez Hemoglobin (Bld) [Mass/Vol] 7.5 g/dL Critically low 12.0-16.0 [facility] Comment on above: Performed By: #### C BC ####[facility] Zsphlaxcyl4[address] [place], [place] [address]Dr. Ivette Hernandez IG # 0.08 10e3/ul Critically high 0.00-0.03 [facility] Comment on above: Performed By: #### C BC ####[facility] Bhakgxilys76[address] [place], [place] [address]Dr. Ivette Hernandez IG % 0.7 % Critically high 0.0-0.5 [facility] Comment on above: Performed By: #### C BC ####[facility] Zeyvedqquw3925 [place] [id number]. Ivette David LYMPH # 1.7 103/ul Normal 1.2-3.8 [facility] Comment on above: Performed By: #### C BC ####[facility] Inughlvxyd6941 [place] [id number]. Cherjun Hernandez Lymphocytes/100 WBC (Bld) 14.7 % Critically low 20.5-60.0 [facility] Comment on above: Performed By: #### C BC ####[facility] Zbxfhltmqg3163 [place] [address]Dr. Cherjun Hernandez MANUAL DIFF REQ NO Normal [facility] Comment on above: Performed By: #### C BC ####[facility] Dkqfldtmoz7780 [place] [address]Dr. Ivette David MCH (RBC) [Entitic mass] 27.9 pg Normal 26.7-34.0 [facility] Comment on above: Performed By: #### C BC ####[facility] Ltbunnojqz9531 [place] [address]Dr. Ivette David MCHC (RBC) [Mass/Vol] 29.6 g/dL Critically low 29.9-35.2 [facility] Comment on above: Performed By: #### C BC ####[facility] Rtnbdndluq9794 [place] [address]Dr. Cherjun Hernandez MCV (RBC) [Entitic vol] 94.1 fL Normal 81.0-99.0 [facility] Comment on above: Performed By: #### C BC ####[facility] Gvxskwdgax0538 [place] [address]Dr. Cherjun Hernandez MONO # 0.9 103/ul Critically high 0.3-0.8 [facility] Comment on above: Performed By: #### C BC ####[facility] Lvgwyfxdpi1814 [place] [address]Dr. Cherjun Hernandez Monocytes/100 WBC (Bld) 7.7 % Normal 1.7-12.0 [facility] Comment on above: Performed By: #### C BC ####[facility] Qozjjelwsf9633 [place], [place] [address]Mr. Ivette Hernandez NEUT # 8.3 103/ul Critically high 1.4-6.5 [facility] Comment on above: Performed By: #### C BC ####[facility] Wcebyysblm9626 [place] [id number]. Ivette Hernandez Neutrophils/100 WBC (Bld) 73.4 % Normal 43.0-75.0 [facility] Comment on above: Performed By: #### C BC ####[facility] Codfrxxipr3449 [place] [id number]. Ivette Hernandez Platelet mean volume (Bld) [Entitic vol] 9.8 fL Normal 9.5-13.5 [facility] Comment on above: Performed By: #### C BC ####[facility] Xrzfralsfq5680 [place] [id number]. Ivette Hernandez PLT 256 103/ul Normal 150-450 [facility] Comment on above: Performed By: #### C BC ####[facility] Difxeokzia6639 [place] [id number]. Ivette Hernandez RBC 2.69 106/ul Critically low 4.20-5.40 [facility] Comment on above: Performed By: #### C BC ####[facility] Fovhghnndz4099 [place] [id number]. Ivette Hernandez WBC 11.3 103/ul Critically high 4.0-11.0 [facility] Comment on above: Performed By: #### C BC ####[facility] Smtstcvhjg0987 [place] [address]Dr. Ivette Hernandez [facility]on SARS-CoV-2 (COVID-19) RNA MARRY+probe Ql (Unsp spec) Not detected Normal NOT DETECTED [facility] Comment on above: Result Comment: When diagnostic testing is negative, the possibility of a false negative should be considered inthe context of a patient's recent exposures and the presence of clinical signs and symptomsconsistent with SARS-CoV-2.This test is not yet approved or cleared by the [place] FDA. When there are no FDA-approved or cleared tests available, and other criteria are met, FDA can make tests available under an emergency access mechanism called an Emergency Use Authorization (EUA). The EUA for this test is supported by the [place] of Health and Human Service's declaration that circumstances exist to justify the emergency use of in vitro diagnostics for the detection and/or diagnosis of the virus that causes COVID-19. This EUA will remain in effect for the duration of the COVID-19 declaration justifying emergency of IVDs, unless it is terminated or revoked by the FDA (after which the test may no longer be used). Performed By: #### C VDTBH ####[facility] Wcxwbmjluj9846 [place] [address]Dr. Ivette Hernandez LACTATE/LACTIC ACIDon 2021 Lactate [Moles/Vol] 0.6 mmol/L Normal 0.4-1.[address] [facility] Comment on above: Performed By: #### L ACT ####[facility] Fqnfprjmzn18[address] [place], [place] [address]Dr. Ivette Hernandez PROF 14(COMP METB)on 022 Albumin [Mass/Vol] 2.3 g/dL Critically low 3.4-5.0 [facility] Comment on above: Performed By: #### H STROPN, BNP, CMP ####[facility] Kurygsunhx3038 [place] [address]Dr. Ivette Hernandez Albumin/Globulin [Mass ratio] 0.5 {ratio} Normal [facility] Comment on above: Performed By: #### H STROPN, BNP, CMP ####[facility] Jjondrchhu8739 [place] [address]Dr. Ivette Hernandez ALP [Catalytic activity/Vol] 72 U/L Normal 46-116 [facility] Comment on above: Performed By: #### H STROPN, BNP, CMP ####[facility] Ijnplnfzej6626 [place] [address]Dr. Ivette Hernandez ALT [Catalytic activity/Vol] 15 U/L Normal 14-59 [facility] Comment on above: Performed By: #### H STROPN, BNP, CMP ####[facility] Uvjhyjycwt3053 [place] [id number]. Ivette Hernandez Anion gap [Moles/Vol] 5.3 mmol/L Normal [facility] Comment on above: Performed By: #### H STROPN, BNP, CMP ####[facility] Inrdjzlflh7896 [place] [address]Dr. Ivette Hernandez AST [Catalytic activity/Vol] 16 U/L Normal 15-37 [facility] Comment on above: Performed By: #### H STROPN, BNP, CMP ####[facility] Ozdjbxcdaq8963 [place] [address]Dr. Ivette Hernandez Bilirubin [Mass/Vol] 0.5 mg/dL Normal 0.2-1.[address] [facility] Comment on above: Performed By: #### H STROPN, BNP, CMP ####[facility] Fvroyidwwd3764 [place] [address]Dr. Ivette Hernandez Calcium [Mass/Vol] 7.8 mg/dL Critically low 8.5-10.1 [facility] Comment on above: Performed By: #### H STROPN, BNP, CMP ####[facility] Oqqzlyvmwn8512 [place] [address]Dr. Ivette Hernandez Chloride [Moles/Vol] 102 mmol/L Normal 98-[address] [facility] Comment on above: Performed By: #### H STROPN, BNP, CMP ####[facility] Iqigkdzfgz1274 [place] [address]Dr. Ivette eHrnandez CO2 [Moles/Vol] 38.3 mmol/L Critically high 21.0-32.0 [facility] Comment on above: Performed By: #### H STROPN, BNP, CMP ####[facility] Jbaiqsdbvh7888 [place] [address]Dr. Ivette Hernandez Creatinine [Mass/Vol] 1.50 mg/dL Critically high 0.55-1.[address] [facility] Comment on above: Performed By: #### H STROPN, BNP, CMP ####[facility] Iehuryigmt0301 [place] [address]Dr. Ivette Hernandez EGFR-AF AUSTRALIAN 41 mL/min/1.73m2 Critically low >=[address] [facility] Comment on above: Performed By: #### H STROPN, BNP, CMP ####[facility] Vknvdcnpra2036 [place] [address]Dr. Ivette Hernandez EGFR-NON AF AUSTRALIAN 34 mL/min/1.73m2 Critically low >=60 [facility] Comment on above: Performed By: #### H STROPN, BNP, CMP ####[facility] Dqsqufjxod5428 [place] [address]Dr. Ivette Hernandez Globulin (S) [Mass/Vol] 4.3 g/dL Normal [facility] Comment on above: Performed By: #### H STROPN, BNP, CMP ####[facility] Xxpazkknqm1985 [place] [address]Dr. Ivette Hernandez Glucose [Mass/Vol] 138 mg/dL Critically high 74-106 T [facility] Comment on above: Performed By: #### H STROPN, BNP, CMP ####[facility] Dlnwlfaqgp3820 [place] [address]Dr. Ivette Hernandez Potassium [Moles/Vol] 3.6 mmol/L Normal 3.5-5.1 [facility] Comment on above: Performed By: #### H STROPN, BNP, CMP ####[facility] Vgkonrvkhd[address] [place], [place] [address]Dr. Ivette Hernandez Protein [Mass/Vol] 6.6 g/dL Normal 6.4-8.2 [facility] Comment on above: Performed By: #### H STROPN, BNP, CMP ####[facility] Twydualmpq9995 [place] [address]Dr. Ivette Hernandez Sodium [Moles/Vol] 142 mmol/L Normal 136-[address] [facility] Comment on above: Performed By: #### H STROPN, BNP, CMP ####[facility] Naepnnfjxn4027 [place] [address]Dr. Ivette Hernandez Urea nitrogen [Mass/Vol] 24.0 mg/dL Critically high 7.0-18.0 [facility] Comment on above: Performed By: #### H STROPN, BNP, CMP ####[facility] Ggepqjjwzh7794 [place] [address]Dr. Ivette Hernandez Urea nitrogen/Creatinine [Mass ratio] 16.0 mg/mg Normal [facility] Comment on above: Performed By: #### H STROPN, BNP, CMP ####[facility] Afqjlunbzm7639 [place] [address]Dr. Ivette Hernandez TROPONIN, HIGH SENSITIVITYon 03-05-2022 HSTROP 18.0 pg/mL Normal 4.0-51.3 [facility] Comment on above: Result Comment: CUT- OFF POINTS HAVE BEEN ESTABLISHED BASED ON THE FOURTH UNIVERSAL DEFINITIONS OF MYOCARDIALINFARCTION. THE UPPER REFERENCE LIMIT (URL) OF TROPONIN, DEFINED THE 99TH PERCENTILE OFcTnI DISTRIBUTION IN A REFERENCE POPULATION, HAS BEEN CONFIRMED THE DECISION THRESHOLDFOR ID DIAGNOSIS. Performed By: #### H STROPN, BNP, CMP ####[facility] Xdlkzdjwuf1227 [place] [address]Dr. Ivette Hernandez XR CHEST 1 Von 03-05-2022 XR CHEST 1 V Normal [facility] CBC AUTO DIFFon 02-27-2022 BASO # 0.0 103/ul Normal 0.0-0.1 [facility] Comment on above: Performed By: #### C BC ####[facility] Pvflrmsmrb43[address] [place], [place] [address]Dr. Ivette David Basophils/100 WBC (Bld) 0.2 % Normal 0.2-2.0 [facility] Comment on above: Performed By: #### C BC ####[facility] Fubtzhvxlw0730 [place] [address]Dr. Ivette Hernandez EO # 0.2 103/ul Normal 0.0-0.7 [facility] Comment on above: Performed By: #### C BC ####[facility] Shqonyuwer0144 [place] [address]Dr. Ivette Hernandez Eosinophils/100 WBC (Bld) 1.9 % Normal 0.9-7.0 [facility] Comment on above: Performed By: #### C BC ####[facility] Qfeceqaixu335[address] [place], [place] [address]Dr. Ivette Hernandez Erythrocyte distribution width (RBC) [Ratio] 14.0 % Normal 11.0-15.0 [facility] Comment on above: Performed By: #### C BC ####[facility] Ihqrdgwpgs9415 [place] [address]Dr. Ivette Hernandez Hematocrit (Bld) [Volume fraction] 28.7 % Critically low 36.0-48.0 [facility] Comment on above: Performed By: #### C BC ####[facility] Imueksvnwd1523 [place] [address]Dr. Ivette Hernandez Hemoglobin (Bld) [Mass/Vol] 8.8 g/dL Critically low 12.0-16.0 [facility] Comment on above: Performed By: #### C BC ####[facility] Zcplmizrbt154[address] [place], [place] [address]Dr. Ivette Hernandez IG # 0.05 10e3/ul Critically high 0.00-0.[address] [facility] Comment on above: Performed By: #### C BC ####[facility] Ovmvmziiga5[address] [place], [place] [address]Dr. Ivette Hernandez IG % 0.5 % Normal 0.0-0.5 [facility] Comment on above: Performed By: #### C BC ####[facility] Zvrlzrfkpm4158[address] [place], [place] [address]Dr. Ivette Hernandez LYMPH # 2.1 103/ul Normal 1.2-3.8 [facility] Comment on above: Performed By: #### C BC ####[facility] Dqaodfkzla3438[address] [place], [place] [address]Dr. Ivette Hernandez Lymphocytes/100 WBC (Bld) 21.3 % Normal 20.5-60.0 [facility] Comment on above: Performed By: #### C BC ####[facility] Nbvawaatmg3796[address] [place], [place] [address]Dr. Ivette Hernandez MANUAL DIFF REQ NO Normal [facility] Comment on above: Performed By: #### C BC ####[facility] Ufpkzmjjsw6413[address] [place], [place] [address]Dr. Ivette Hernandez MCH (RBC) [Entitic mass] 27.6 pg Normal 26.7-34.0 [facility] Comment on above: Performed By: #### C BC ####[facility] Ytxrnskurh6911 [place] [address]Dr. Ivette Hernandez MCHC (RBC) [Mass/Vol] 30.7 g/dL Normal 29.9-35.2 [facility] Comment on above: Performed By: #### C BC ####[facility] Cepbdmtiug2463 [place] [address]Dr. Ivette Hernandez MCV (RBC) [Entitic vol] 90.0 fL Normal 81.0-99.0 [facility] Comment on above: Performed By: #### C BC ####[facility] Zkdvjtqvcc4520 [place] [address]Dr. Ivette Hernandez MONO # 0.6 103/ul Normal 0.3-0.8 [facility] Comment on above: Performed By: #### C BC ####[facility] Tbywjvtzvm14[address] [place], [place] [address]Dr. Ivette David Monocytes/100 WBC (Bld) 6.5 % Normal 1.7-12.0 [facility] Comment on above: Performed By: #### C BC ####[facility] Wljioovbib340[address] [place], [place] [address]Dr. Ivette Hernandez NEUT # 6.7 103/ul Critically high 1.4-6.5 [facility] Comment on above: Performed By: #### C BC ####[facility] Gteuwslgol2269[address] [place], [place] [address]Dr. Ivette David Neutrophils/100 WBC (Bld) 69.6 % Normal 43.0-75.0 [facility] Comment on above: Performed By: #### C BC ####[facility] Vopnspkupz0860[address] [place], [place] [address]Dr. Ivette Hernandez Platelet mean volume (Bld) [Entitic vol] 9.6 fL Normal 9.5-13.5 [facility] Comment on above: Performed By: #### C BC ####[facility] Ffbrdagkdn0740 [place] [address]Dr. Ivette Hernandez PLT 236 103/ul Normal 150-450 [facility] Comment on above: Performed By: #### C BC ####[facility] Ngayxcsbpv04[address] [place], [place] [address]Dr. Ivette Hernandez RBC 3.19 106/ul Critically low 4.20-5.40 [facility] Comment on above: Performed By: #### C BC ####[facility] Vwextjfqvf2393[address] [place], [place] [address]Dr. Ivette Hernandez WBC 9.6 103/ul Normal 4.0-11.[address] [facility] Comment on above: Performed By: #### C BC ####[facility] Obxdklgnzv95[address] [place], [place] [address]Dr. Ivette Hernandez GI PANEL (PCR)on 02-27-2022 Adenovirus F 40/41 Not detected Normal NOT DETECTED [facility] Comment on above: Performed By: #### G IPANEL ####[facility] Xnvsakhrtk195[address] [place], [place] [address]Dr. Ivette Hernandez Astrovirus Not detected Normal NOT DETECTED [facility] Comment on above: Performed By: #### G IPANEL ####[facility] Pgnzrxjohk33[address] [place], [place] [address]Dr. Ivette Hernandez C. Diff toxin A/B Detected Critically abnormal NOT DETECTED [facility] Comment on above: Performed By: #### G IPANEL ####[facility] Fmynngnbkq4[address] [place], [place] [address]Dr. Ivette Hernandez Campylobacter Not detected Normal NOT DETECTED [facility] Comment on above: Performed By: #### G IPANEL ####[facility] Jpyygjmdvu8184[address] [place], [place] [address]Dr. Ivette Hernandez Cryptosporidium Not detected Normal NOT DETECTED [facility] Comment on above: Performed By: #### G IPANEL ####[facility] Usqwnldwyu8423[address] [place], [place] [address]Dr. Ivette Hernandez Cyclos. Cayetanensis Not detected Normal NOT DETECTED [facility] Comment on above: Performed By: #### G IPANEL ####[facility] Nhpdsgslhe9254[address] [place], [place] [address]Dr. Ivette Hernandez E. Coli O157 Not Applicable Normal Not Applicable [facility] Comment on above: Performed By: #### G IPANEL ####[facility] Yccfmrfois039[address] [place], [place] [address]Dr. Ivette Hernandez E. histolytica Not detected Normal NOT DETECTED [facility] Comment on above: Performed By: #### G IPANEL ####[facility] Rfrlkujocd035[address] [place], [place] [address]Dr. Ivette Hernandez EAEC Not detected Normal NOT DETECTED [facility] Comment on above: Performed By: #### G IPANEL ####[facility] Rpcpurdxrt55[address] [place], [place] [address]Dr. Ivette Hernandez EIEC Not detected Normal NOT DETECTED [facility] Comment on above: Performed By: #### G IPANEL ####[facility] Ogmdmajdwq7450[address] [place], [place] [address]Dr. Ivette Hernandez EPEC Not detected Normal NOT DETECTED [facility] Comment on above: Performed By: #### G IPANEL ####[facility] Gvrjizttgt4188[address] [place], [place] [address]Dr. Ivette Hernandez ETEC Not detected Normal NOT DETECTED [facility] Comment on above: Performed By: #### G IPANEL ####[facility] Jtosydlfyr[address] [place], [place] [address]Dr. Ivette Hernandez G. Lamblia Not detected Normal NOT DETECTED [facility] Comment on above: Performed By: #### G IPANEL ####[facility] Kaigbakhml9[address] [place], [place] [address]Dr. Ivette Hernandez GIPANEL CONTROLS PASSED Normal [facility] Comment on above: Performed By: #### G IPANEL ####[facility] Gyjwjtrtjk7[address] [place], [place] [address]Dr. Ivette Hernandez GIPNL GITA HEADER GI PANEL BACTERIA Normal T [facility] Comment on above: Performed By: #### G IPANEL ####[facility] Hrheqszcfa4[address] [place], [place] [address]Dr. Ivette Hernandez [facility] ECOLI GI PANEL DIARRHEAGEN IC E.COLI / SHIGELLA Normal [facility] Comment on above: Performed By: #### G IPANEL ####[facility] Kdbnwmuwst908[address] [place], [place] [address]Dr. Ivette Hernandez [facility] INFO SEE BELOW Normal [facility] Comment on above: Result Comment: EAEC - Enteroaggregative E. Coli EPEC- Enteropathogenic E. Coli ETEC- Enterotoxigenic E. Coli lt/st STEC- Shigella-like toxin-producing E. Coli stx1/stx2 EIEC- Shigella/Enteroinvasive E. Coli Performed By: #### G IPANEL ####[facility] Hnhtujpgwm5233[address] [place], [place] [address]Dr. Ivette [facility] GI PANEL PARASITES Normal [facility] Comment on above: Performed By: #### G IPANEL ####[facility] Pxsfujiulo5466[address] [place], [place] [address]Dr. Ivette Hernandez [facility] VIRUS GI PANEL VIRUSES Normal [facility] Comment on above: Performed By: #### G IPANEL ####[facility] Lkrflderhj55[address] [place], [place] [address]Dr. Ivette Hernandez Norovirus GI/GII Not detected Normal NOT DETECTED [facility] Comment on above: Performed By: #### G IPANEL ####[facility] Ipymxepnhk108[address] [place], [place] [address]Dr. Ivette Hernandez P. Shigelloides Not detected Normal NOT DETECTED [facility] Comment on above: Performed By: #### G IPANEL ####[facility] Xriuxduiww4723[address] [place], [place] [address]Dr. Ivette Hernandez Rotavirus A Not detected Normal NOT DETECTED [facility] Comment on above: Performed By: #### G IPANEL ####[facility] Iwjfbwckcy4[address] [place], [place] [address]Dr. Ivette Hernandez Salmonella Not detected Normal NOT DETECTED [facility] Comment on above: Performed By: #### G IPANEL ####[facility] Zxlasggfpf060[address] [place], [place] [address]Dr. Ivette Hernandez Sapovirus Not detected Normal NOT DETECTED [facility] Comment on above: Performed By: #### G IPANEL ####[facility] Vxbipvwmxt7082 [place] [address]Dr. Ivette Hernandez STEC Not detected Normal NOT DETECTED [facility] Comment on above: Performed By: #### G IPANEL ####[facility] Yrpzhnnvev9901 [place] [address]Dr. Ivette Hernandez Vibrio Not detected Normal NOT DETECTED [facility] Comment on above: Performed By: #### G IPANEL ####[facility] Fmxujvtxrr7305 [place] [address]Dr. Ivette Hernandez Vibrio Cholera Not detected Normal NOT DETECTED [facility] Comment on above: Performed By: #### G IPANEL ####[facility] Ninlzamdyt33[address] [place], [place] [address]Dr. Ivette Hernandez Y. Enterocolitica Not detected Normal NOT DETECTED [facility] Comment on above: Performed By: #### G IPANEL ####[facility] Nenbketizh[address] [place], [place] [address]Dr. Ivette Hernandez OCC BLD IMMUNO SCREENon 02-01 OCCULT BLOOD Negative Normal NEGATIVE [facility] Comment on above: Performed By: #### O BSCRN ####[facility] Xmfykrfdll12[address] [place], [place] [address]Dr. Ivette Hernandez PROF 14(COMP METB)on 022 Albumin [Mass/Vol] 2.4 g/dL Critically low 3.4-5.0 [facility] Comment on above: Performed By: #### C MP ####[facility] Jajjkrzcnk7216 [place] [address]Dr. Ivette Hernandez Albumin/Globulin [Mass ratio] 0.6 {ratio} Normal [facility] Comment on above: Performed By: #### C MP ####[facility] Ghutljjuyr0402 [place] [address]Dr. Ivette Hernandez ALP [Catalytic activity/Vol] 68 U/L Normal 46-116 [facility] Comment on above: Performed By: #### C MP ####[facility] Kcrubyzqod6140 [place], [place] [address]Yq. Ivette Hernandez ALT [Catalytic activity/Vol] 12 U/L Critically low 14-[address] [facility] Comment on above: Performed By: #### C MP ####[facility] Vvoastggfc4495 [place] [id number]. Ivette Hernandez Anion gap [Moles/Vol] 10.3 mmol/L Normal [facility] Comment on above: Performed By: #### C MP ####[facility] Obzhnyjcwk230[address] [place] [address]Dr. Ivette Hernandez AST [Catalytic activity/Vol] 15 U/L Normal 15-[address] [facility] Comment on above: Performed By: #### C MP ####[facility] Fneobrsaif[address] [place] [address]Dr. Ivette Hernandez Bilirubin [Mass/Vol] 0.4 mg/dL Normal 0.2-1.[address] [facility] Comment on above: Performed By: #### C MP ####[facility] Cwodskqjir8827 [place] [id number]. Ivette Hernandez Calcium [Mass/Vol] 7.5 mg/dL Critically low 8.5-10.1 [facility] Comment on above: Performed By: #### C MP ####[facility] Oyiytgriue4059 [place] [id number]. Ivette Hernandez Chloride [Moles/Vol] 102 mmol/L Normal 98-107 [facility] Comment on above: Performed By: #### C MP ####[facility] Uroixrbmsp6630 [place] [id number]. Ivette Hernandez CO2 [Moles/Vol] 33.8 mmol/L Critically high 21.0-32.[address] [facility] Comment on above: Performed By: #### C MP ####[facility] Ayxpthxiic2917 [place] [id number]. Ivette Hernandez Creatinine [Mass/Vol] 1.35 mg/dL Critically high 0.55-1.[address] [facility] Comment on above: Performed By: #### C MP ####[facility] Ujdnzzzury1759 [place] [id number]. Ivette Hernandez EGFR-AF AUSTRALIAN 47 mL/min/1.73m2 Critically low >=[address] [facility] Comment on above: Performed By: #### C MP ####[facility] Bnajdsltns1604 [place] [id number]. Ivette Hernandez EGFR-NON AF AUSTRALIAN 38 mL/min/1.73m2 Critically low >=60 [facility] Comment on above: Performed By: #### C MP ####[facility] Anhbtjzkrq1043 [place] [id number]. Ivette Hernandez Globulin (S) [Mass/Vol] 4.0 g/dL Normal [facility] Comment on above: Performed By: #### C MP ####[facility] Zhuxpzregf3699 [place] [id number]. Ivette Hernandez Glucose [Mass/Vol] 142 mg/dL Critically high 74-106 [facility] Comment on above: Performed By: #### C MP ####[facility] Wnduzlaeya8649 [place] [phone]. Ivette Hernandez Potassium [Moles/Vol] 3.1 mmol/L Critically low 3.5-5.1 [facility] Comment on above: Performed By: #### C MP ####[facility] Kuqagypusn6625 [place] [phone]. Ivette Hernandez Protein [Mass/Vol] 6.4 g/dL Normal 6.4-8.2 [facility] Comment on above: Performed By: #### C MP ####[facility] Aiowylnmfn8713 [place] [phone]. Ivette Hernandez Sodium [Moles/Vol] 143 mmol/L Normal 136-[address] [facility] Comment on above: Performed By: #### C MP ####[facility] Lbgjkwfjdx4593 [place] [phone]. Ivette Hernandez Urea nitrogen [Mass/Vol] 32.0 mg/dL Critically high 7.0-18.[address] [facility] Comment on above: Performed By: #### C MP ####[facility] Ojdffhbhwd2954 [place] [phone]. Ivette Hernandez Urea nitrogen/Creatinine [Mass ratio] 23.7 mg/mg Normal [facility] Comment on above: Performed By: #### C MP ####[facility] Ocdqusupnm[address] [place], [place] [address]Dr. Ivette Hernandez CBC AUTO DIFFon 02-26-2022 BASO # 0.0 103/ul Normal 0.0-0.1 [facility] Comment on above: Performed By: #### C BC ####[facility] Zrqiwbdwwu[address] [place], [place] [address]Dr. Ivette David Basophils/100 WBC (Bld) 0.0 % Critically low 0.2-2.0 [facility] Comment on above: Performed By: #### C BC ####[facility] Jcdegnyqgk[address] [place], [place] [address]Dr. Cherjun Hernandez EO # 0.0 103/ul Normal 0.0-0.7 [facility] Comment on above: Performed By: #### C BC ####[facility] Snzvhbbczm6[address] [place], [place] [address]Dr. Ivette Hernandez Eosinophils/100 WBC (Bld) 0.0 % Critically low 0.9-7.0 [facility] Comment on above: Performed By: #### C BC ####[facility] Xwgvlerfgh9[address] [place], [place] [address]Dr. Ivette Hernandez Erythrocyte distribution width (RBC) [Ratio] 13.9 % Normal 11.0-15.0 [facility] Comment on above: Performed By: #### C BC ####[facility] Ektydknwtp45[address] [place], [place] [address]Dr. Ivette Hernandez Hematocrit (Bld) [Volume fraction] 25.9 % Critically low 36.0-48.0 [facility] Comment on above: Performed By: #### C BC ####[facility] Snkserkucz[address] [place], [place] [address]Dr. Cherjun Hernandez Hemoglobin (Bld) [Mass/Vol] 8.2 g/dL Critically low 12.0-16.0 [facility] Comment on above: Performed By: #### C BC ####[facility] Cybgeychqr9044 [place] [phone]. Ivette Hernandez IG # 0.05 10e3/ul Critically high 0.00-0.[address] [facility] Comment on above: Performed By: #### C BC ####[facility] Ugluudmacw4390 [place] [phone] Ivette Hernandez IG % 0.9 % Critically high 0.0-0.[address] [facility] Comment on above: Performed By: #### C BC ####[facility] Kzulpkswoj[address]2 [place] [address]Dr. Ivette David LYMPH # 1.0 103/ul Critically low 1.2-3.8 [facility] Comment on above: Performed By: #### C BC ####[facility] Cjxaywjrkt4219 [place] [address]DrJesse Hernandez Lymphocytes/100 WBC (Bld) 17.4 % Critically low 20.5-60.[address] [facility] Comment on above: Performed By: #### C BC ####[facility] Zecjmelyox5044 [place] [address]DrJesse Cherjun Hernandez MANUAL DIFF REQ NO Normal [facility] Comment on above: Performed By: #### C BC ####[facility] Jvbcpfzuse1766 [place] [address]DrJesse Ivette David MCH (RBC) [Entitic mass] 28.3 pg Normal 26.7-34.0 [facility] Comment on above: Performed By: #### C BC ####[facility] Wewgkveweg6[address] [place], [place] [address]Dr. Ivette David MCHC (RBC) [Mass/Vol] 31.7 g/dL Normal 29.9-35.2 [facility] Comment on above: Performed By: #### C BC ####[facility] Hueffpoywb2305 [place] [phone] Cherjun Hernandez MCV (RBC) [Entitic vol] 89.3 fL Normal 81.0-99.0 [facility] Comment on above: Performed By: #### C BC ####[facility] Utrtmoinlt6880 [place] [phone]. Ivette Hernandez MONO # 0.2 103/ul Critically low 0.3-0.8 [facility] Comment on above: Performed By: #### C BC ####[facility] Ntzqffgrkw7314 [place] [phone]. Ivette Hernandez Monocytes/100 WBC (Bld) 3.6 % Normal 1.7-12.0 [facility] Comment on above: Performed By: #### C BC ####[facility] Mfuqskddsk8021 [place] [phone]. Ivette Hernandez NEUT # 4.6 103/ul Normal 1.4-6.5 [facility] Comment on above: Performed By: #### C BC ####[facility] Itpzuaomxs8038 [place] [address]Dr. Ivette Hernandez Neutrophils/100 WBC (Bld) 78.1 % Critically high 43.0-75.0 [facility] Comment on above: Performed By: #### C BC ####[facility] Yhwbsutxkq3648 [place] [address]Dr. Ivette Hernandez Platelet mean volume (Bld) [Entitic vol] 9.5 fL Normal 9.5-13.5 [facility] Comment on above: Performed By: #### C BC ####[facility] Ldiwplurvn1[address] [place], [place] [address]Dr. Ivette Hernandez PLT 195 103/ul Normal 150-450 [facility] Comment on above: Performed By: #### C BC ####[facility] Ifdkehpnci9538 [place] [phone]. Ivette Hernandez RBC 2.90 106/ul Critically low 4.20-5.40 [facility] Comment on above: Performed By: #### C BC ####[facility] Siluccmjzz4695 [place] [phone]. Ivette Hernandez WBC 5.8 103/ul Normal 4.0-11.0 [facility] Comment on above: Performed By: #### C BC ####[facility] Amuvlhqcgc1210 [place] [address]Dr. Ivette Hernandez ECHOCARDIO M/2D COMPLETEon 1 ECHOCARDIO M/2D COMPLETE Normal [facility] PROF 14(COMP METB)on 022 Albumin [Mass/Vol] 2.3 g/dL Critically low 3.4-5.0 [facility] Comment on above: Performed By: #### C MP ####[facility] Lwckhkzaxx44[address] [place], [place] [address]Dr. Ivette Hernandez Albumin/Globulin [Mass ratio] 0.6 {ratio} Normal [facility] Comment on above: Performed By: #### C MP ####[facility] Ozdzfgeswy5[address] [place], [place] [address]Dr. Ivette Hernandez ALP [Catalytic activity/Vol] 67 U/L Normal 46-[address] [facility] Comment on above: Performed By: #### C MP ####[facility] Ybhnolpqgt9[address] [place], [place] [address]Dr. Ivette Hernandez ALT [Catalytic activity/Vol] 15 U/L Normal 14-[address] [facility] Comment on above: Performed By: #### C MP ####[facility] Zajrvynxny49[address] [place], [place] [address]Dr. Ivette Hernandez Anion gap [Moles/Vol] 7.6 mmol/L Normal [facility] Comment on above: Performed By: #### C MP ####[facility] Ohuowkatkf[address] [place], [place] [address]Dr. Ivette Hernandez AST [Catalytic activity/Vol] 12 U/L Critically low 15-37 [facility] Comment on above: Performed By: #### C MP ####[facility] Fzpkhdhnec7[address] [place], [place] [address]Dr. Ivette Hernandez Bilirubin [Mass/Vol] 0.3 mg/dL Normal 0.2-1.[address] [facility] Comment on above: Performed By: #### C MP ####[facility] Emqhxieuib97[address] [place], [place] [address]Dr. Ivette Hernandez Calcium [Mass/Vol] 6.3 mg/dL Critically low 8.5-10.1 [facility] Comment on above: Performed By: #### C MP ####[facility] Nymcyrsqea8807 [place] [address]Dr. Ivette Hernandez Chloride [Moles/Vol] 104 mmol/L Normal 98-[address] [facility] Comment on above: Performed By: #### C MP ####[facility] Rzbpdecsax7852 [place] [address]Dr. Ivette Hernandez CO2 [Moles/Vol] 34.8 mmol/L Critically high 21.0-32.[address] [facility] Comment on above: Performed By: #### C MP ####[facility] Dteorvghou6654[address] [place], [place] [address]Dr. Ivette Hernandez Creatinine [Mass/Vol] 1.30 mg/dL Critically high 0.55-1.[address] [facility] Comment on above: Performed By: #### C MP ####[facility] Hlinyunozv5524[address] [place], [place] [address]Dr. Ivette Hernandez EGFR-AF AUSTRALIAN 49 mL/min/1.73m2 Critically low >=[address] [facility] Comment on above: Performed By: #### C MP ####[facility] Mwmeeldosx27[address] [place], [place] [address]Dr. Ivette Hernandez EGFR-NON AF AUSTRALIAN 40 mL/min/1.73m2 Critically low >=[address] [facility] Comment on above: Performed By: #### C MP ####[facility] Jhissfyrke9938[address] [place], [place] [address]Dr. Ivette Hernandez Globulin (S) [Mass/Vol] 4.1 g/dL Normal [facility] Comment on above: Performed By: #### C MP ####[facility] Phrcucymsy8499[address] [place], [place] [address]Dr. Ivette Hernandez Glucose [Mass/Vol] 130 mg/dL Critically high 74-106 T [facility] Comment on above: Performed By: #### C MP ####[facility] Vmivoobcma0878[address] [place], [place] [address]Dr. Ivette Hernandez Potassium [Moles/Vol] 3.4 mmol/L Critically low 3.5-5.1 [facility] Comment on above: Performed By: #### C MP ####[facility] Fdyzllzuzl36[address] [place], [place] [address]Dr. Ivette Hernandez Protein [Mass/Vol] 6.4 g/dL Normal 6.4-8.2 [facility] Comment on above: Performed By: #### C MP ####[facility] Eipxtfoeso[address] [place], [place] [address]Dr. Ivette Hernandez Sodium [Moles/Vol] 143 mmol/L Normal 136-145 [facility] Comment on above: Performed By: #### C MP ####[facility] Soxbvjptiv0827[address] [place], [place] [address]Dr. Ivette Hernandez Urea nitrogen [Mass/Vol] 24.0 mg/dL Critically high 7.0-18.0 [facility] Comment on above: Performed By: #### C MP ####[facility] Hcmjronzek9997[address] [place], [place] [address]Dr. Ivette Hernandez Urea nitrogen/Creatinine [Mass ratio] 18.5 mg/mg Normal [facility] Comment on above: Performed By: #### C MP ####[facility] Xhzsrumhxu9964[address] [place], [place] [address]Dr. Ivette Hernandez US KIDNEYS BLADDERon 022 US KIDNEYS BLADDER Normal [facility] BNPon 02-25-2022 Natriuretic peptide B (Bld) [Mass/Vol] 14935.0 pg/mL Critically high <=900.0 [facility] Comment on above: Performed By: #### M G, BMP, BNP ####[facility] Qmqbfhdwzc0880[address] [place], [place] [address]Dr. Ivette Hernandez CBC AUTO DIFFon 02-25-2022 BASO # 0.0 103/ul Normal 0.0-0.1 [facility] Comment on above: Performed By: #### C BC ####[facility] Agpdvfaukf020[address] [place], [place] [address]Dr. Ivette Hernandez Basophils/100 WBC (Bld) 0.4 % Normal 0.2-2.0 [facility] Comment on above: Performed By: #### C BC ####[facility] Mxzsitvbql3725 [place] [address]Dr. Ivette Hernandez EO # 0.1 103/ul Normal 0.0-0.7 [facility] Comment on above: Performed By: #### C BC ####[facility] Yneizxtpku5086[address] [place], [place] [address]Dr. Cherjun Hernandez Eosinophils/100 WBC (Bld) 0.8 % Critically low 0.9-7.0 [facility] Comment on above: Performed By: #### C BC ####[facility] Fjpciotyso8989[address] [place], [place] [address]Dr. Cherjun Hernandez Erythrocyte distribution width (RBC) [Ratio] 14.3 % Normal 11.0-15.0 [facility] Comment on above: Performed By: #### C BC ####[facility] Xpmapoefzm3578[address] [place], [place] [address]Dr. Cherjun Hernandez Hematocrit (Bld) [Volume fraction] 29.3 % Critically low 36.0-48.[address] [facility] Comment on above: Performed By: #### C BC ####[facility] Dbtyxhtyyi1711[address] [place], [place] [address]Dr. Ivette Hernandez Hemoglobin (Bld) [Mass/Vol] 9.2 g/dL Critically low 12.0-16.0 [facility] Comment on above: Performed By: #### C BC ####[facility] Nduaphphwy25[address] [place], [place] [address]Dr. Cherjun Hernandez IG # 0.04 10e3/ul Critically high 0.00-0.03 [facility] Comment on above: Performed By: #### C BC ####[facility] Jtxilyitpl1860[address] [place], [place] [address]Dr. Cherjun Hernandez IG % 0.4 % Normal 0.0-0.5 [facility] Comment on above: Performed By: #### C BC ####[facility] Cpufhjhyzm98[address] [place], [place] [address]DrJesse Hernandez LYMPH # 1.9 103/ul Normal 1.2-3.8 [facility] Comment on above: Performed By: #### C BC ####[facility] Ftfupkjkml7649 [place] [address]Dr. Ivette Hernandez Lymphocytes/100 WBC (Bld) 17.5 % Critically low 20.5-60.[address] [facility] Comment on above: Performed By: #### C BC ####[facility] Jqoenvxwvx8036 [place] [address]DrJesse Hernandez MANUAL DIFF REQ NO Normal [facility] Comment on above: Performed By: #### C BC ####[facility] Xqhilnvyhi1518 [place] [id number] Hernandez MCH (RBC) [Entitic mass] 28.6 pg Normal 26.7-34.0 [facility] Comment on above: Performed By: #### C BC ####[facility] Pslmmvhgtq6724[address] [place], [place] [address]Dr. Ivette Hernandez MCHC (RBC) [Mass/Vol] 31.4 g/dL Normal 29.9-35.[address] [facility] Comment on above: Performed By: #### C BC ####[facility] Ezuugoxlpm5[address] [place], [place] [address]DrJesse Hernandez MCV (RBC) [Entitic vol] 91.0 fL Normal 81.0-99.[address] [facility] Comment on above: Performed By: #### C BC ####[facility] Srqweqgqnm364[address] [place], [place] [address]DrJesse Hernandez MONO # 0.6 103/ul Normal 0.3-0.8 [facility] Comment on above: Performed By: #### C BC ####[facility] Didnagnpbw[address] [place], [place] [id number] Hernandez Monocytes/100 WBC (Bld) 5.4 % Normal 1.7-12.0 [facility] Comment on above: Performed By: #### C BC ####[facility] Kkhsjjdzhb8[address] [place], [place] [id number] Hernandez NEUT # 8.1 103/ul Critically high 1.4-6.5 [facility] Comment on above: Performed By: #### C BC ####[facility] Hplbfpyvas5003 [place] [address]Dr. Ivette Hernandez Neutrophils/100 WBC (Bld) 75.5 % Critically high 43.0-75.[address] [facility] Comment on above: Performed By: #### C BC ####[facility] Aihtpnzlut1517 [place] [address]Dr. Ivette Hernandez Platelet mean volume (Bld) [Entitic vol] 9.7 fL Normal 9.5-13.[address] [facility] Comment on above: Performed By: #### C BC ####[facility] Dkglzahpnd6682 [place] [address]Dr. Ivette Hernandez PLT 242 103/ul Normal 150-[address] [facility] Comment on above: Performed By: #### C BC ####[facility] Dvdcwalhmp[address] [place], [place] [address]Dr. Ivette Hernandez RBC 3.22 106/ul Critically low 4.20-5.[address] [facility] Comment on above: Performed By: #### C BC ####[facility] Xkwaixizkw[address] [place], [place] [address]Dr. Ivette Hernandez WBC 10.8 103/ul Normal 4.0-11.[address] [facility] Comment on above: Performed By: #### C BC ####[facility] Lzxrriropx6[address] [place], [place] [address]Dr. Ivette Hernandez MAGNESIUMon 02-25-2022 Magnesium [Mass/Vol] 1.3 mg/dL Critically low 1.8-2.[address] [facility] Comment on above: Performed By: #### M G, BMP, BNP ####[facility] Fpauiimmdw12[address] [place], [place] [address]Dr. Ivette Hernandez POINT OF CARE GLUCOSEon 02-01 Glucose [Mass/Vol] 191 mg/dL Critically high 74-106 T [facility] Comment on above: Performed By: #### P OCGLUC ####[facility] Jawfnaoibj[address] [place], [place] [address]DrJesse Hernandez PROF CHEM 8 (BAS METB)on Anion gap [Moles/Vol] 7.7 mmol/L Normal [facility] Comment on above: Performed By: #### Chris Aranda BMP, BNP ####[facility] Smtirpugeh9487 [place] [address]Dr. Ivette Hernandez Calcium [Mass/Vol] 6.4 mg/dL Critically low 8.5-10.1 [facility] Comment on above: Performed By: #### Chris Aranda, BMP, BNP ####[facility] Mnmsnydlvs6961 [place] [address]Dr. Ivette Hernandez Chloride [Moles/Vol] 105 mmol/L Normal 98-[address] [facility] Comment on above: Performed By: #### Chris Aranda BMP, BNP ####[facility] Mdvbnixnko7878 [place] [address]Dr. Ivette Hernandez CO2 [Moles/Vol] 37.4 mmol/L Critically high 21.0-32.[address] [facility] Comment on above: Performed By: #### Chris Aranda BMP, BNP ####[facility] Nsgfaxraed8608 [place] [address]Dr. Ivette Hernandez Creatinine [Mass/Vol] 1.41 mg/dL Critically high 0.55-1.[address] [facility] Comment on above: Performed By: #### Chris Aranda BMP, BNP ####[facility] Lwiesbwlha6774 [place] [address]Dr. Ivette Hernandez EGFR-AF AUSTRALIAN 44 mL/min/1.73m2 Critically low >=[address] [facility] Comment on above: Performed By: #### Chris Aranda, BMP, BNP ####[facility] Lkrgihoynz0330 [place] [id number]. Ivette Hernandez EGFR-NON AF AUSTRALIAN 37 mL/min/1.73m2 Critically low >=[address] [facility] Comment on above: Performed By: #### Chris Aranda, BMP, BNP ####[facility] Vlsmjcfquh4066 [place] [address]Dr. Ivette Hernandez Glucose [Mass/Vol] 132 mg/dL Critically high 74-106 [facility] [place] Comment on above: Performed By: #### M G, BMP, BNP ####[facility] Ifuqezwbzd0527 [place] [address]Dr. Cherjun Hernandez Potassium [Moles/Vol] 3.1 mmol/L Critically low 3.5-5.[address] [facility] Comment on above: Performed By: #### M G, BMP, BNP ####[facility] Zfazvowezq4330 [place] [address]Dr. Ivette Hernandez Sodium [Moles/Vol] 147 mmol/L Critically high 136-145 [facility] [place] Comment on above: Performed By: #### M G, BMP, BNP ####[facility] Gameyqqxdy3366 [place] [address]Dr. Cherjun Hernandez Urea nitrogen [Mass/Vol] 15.0 mg/dL Normal 7.0-18.[address] [facility] Comment on above: Performed By: #### M G, BMP, BNP ####[facility] Rofhgrfrhk4997 [place] [address]Dr. Ivette Hernandez Urea nitrogen/Creatinine [Mass ratio] 10.6 mg/mg Normal [facility] Comment on above: Performed By: #### M G, BMP, BNP ####[facility] Gutfttzhym7[address] [place], [place] [address]Dr. Ivette Hernandez TROPONIN, HIGH SENSITIVITYon 02-25-2022 HSTROP 15.5 pg/mL Normal 4.0-51.[address] [facility] Comment on above: Result Comment: CUT- OFF POINTS HAVE BEEN ESTABLISHED BASED ON THE FOURTH UNIVERSAL DEFINITIONS OF MYOCARDIALINFARCTION. THE UPPER REFERENCE LIMIT (URL) OF TROPONIN, DEFINED THE 99TH PERCENTILE OFcTnI DISTRIBUTION IN A REFERENCE POPULATION, HAS BEEN CONFIRMED THE DECISION THRESHOLDFOR ID DIAGNOSIS. Performed By: #### H STROPN ####[facility] Mcrryvgdtk[address] [place], [place] [address]Dr. Ivette Hernandez HSTROP 17.6 pg/mL Normal 4.0-51.[address] [facility] Comment on above: Result Comment: CUT- OFF POINTS HAVE BEEN ESTABLISHED BASED ON THE FOURTH UNIVERSAL DEFINITIONS OF MYOCARDIALINFARCTION. THE UPPER REFERENCE LIMIT (URL) OF TROPONIN, DEFINED THE 99TH PERCENTILE OFcTnI DISTRIBUTION IN A REFERENCE POPULATION, HAS BEEN CONFIRMED THE DECISION THRESHOLDFOR ID DIAGNOSIS. Performed By: #### H STROPN ####[facility] Cigidxmkbp[address] [place], [place] [address]Dr. Ivette Hernandez BNPon 02-24-2022 Natriuretic peptide B (Bld) [Mass/Vol] 36212.0 pg/mL Critically high <=900.0 [facility] Comment on above: Performed By: #### B MAGAZINE WORKER, HSTROPN, CMP ####[facility] Axrkyyxgkx5[address] [place], [place] [address]Dr. Cherjun Hernandez CBC AUTO DIFFon 02-24-2022 BASO # 0.1 103/ul Normal 0.0-0.1 [facility] Comment on above: Performed By: #### C BC ####[facility] Pycmygannm[address] [place], [place] [address]Dr. Ivette Hernandez Basophils/100 WBC (Bld) 0.5 % Normal 0.2-2.0 [facility] Comment on above: Performed By: #### C BC ####[facility] Yjwpcaldwn[address] [place], [place] [address]Dr. Ivette Hernandez EO # 0.2 103/ul Normal 0.0-0.7 [facility] Comment on above: Performed By: #### C BC ####[facility] Sqzdpthxok[address] [place], [place] [address]Dr. Ivette Hernandez Eosinophils/100 WBC (Bld) 2.3 % Normal 0.9-7.0 [facility] Comment on above: Performed By: #### C BC ####[facility] Jualxlrlke[address] [place], [place] [address]Dr. Ivette Hernandez Erythrocyte distribution width (RBC) [Ratio] 14.2 % Normal 11.0-15.0 [facility] Comment on above: Performed By: #### C BC ####[facility] Mlubjaryed82[address] [place], [place] [address]Dr. Ivette Hernandez Hematocrit (Bld) [Volume fraction] 30.2 % Critically low 36.0-48.0 [facility] Comment on above: Performed By: #### C BC ####[facility] Iataznrugj2266 [place] [address]Dr. Ivette Hernandez Hemoglobin (Bld) [Mass/Vol] 9.3 g/dL Critically low 12.0-16.[address] [facility] Comment on above: Performed By: #### C BC ####[facility] Thlklscvxc1353 [place] [address]Dr. Ivette Hernandez IG # 0.04 10e3/ul Critically high 0.00-0.[address] [facility] Comment on above: Performed By: #### C BC ####[facility] Jlzehchhxl45[address] [place], [place] [address]Dr. Ivette Hernandez IG % 0.4 % Normal 0.0-0.[address] [facility] Comment on above: Performed By: #### C BC ####[facility] Krolfkyksv2[address] [place], [place] [address]Dr. Ivette Hernandez LYMPH # 2.6 103/ul Normal 1.2-3.8 [facility] Comment on above: Performed By: #### C BC ####[facility] Bfgtijpyob54[address] [place], [place] [address]Dr. Ivette Hernandez Lymphocytes/100 WBC (Bld) 27.1 % Normal 20.5-60.[address] [facility] Comment on above: Performed By: #### C BC ####[facility] Vpekqbrfum9[address] [place], [place] [address]Dr. Ivette Hernandez MANUAL DIFF REQ NO Normal [facility] Comment on above: Performed By: #### C BC ####[facility] Nxnmcrknen[address] [place], [place] [address]Dr. Ivette Hernandez MCH (RBC) [Entitic mass] 27.8 pg Normal 26.7-34.0 [facility] Comment on above: Performed By: #### C BC ####[facility] Ipvljgmqdj2[address] [place], [place] [address]Dr. Ivette Hernandez MCHC (RBC) [Mass/Vol] 30.8 g/dL Normal 29.9-35.2 [facility] Comment on above: Performed By: #### C BC ####[facility] [address] [place] [id number]. Ivette Hernandez MCV (RBC) [Entitic vol] 90.4 fL Normal 81.0-99.0 [facility] Comment on above: Performed By: #### C BC ####[facility] Ddglxqkylg98[address] [place] [id number]. Ivette Hernandez MONO # 0.6 103/ul Normal 0.3-0.8 [facility] Comment on above: Performed By: #### C BC ####[facility] Iwavjollai06[address] [place] [id number]. Ivette David Monocytes/100 WBC (Bld) 6.1 % Normal 1.7-12.[address] [facility] Comment on above: Performed By: #### C BC ####[facility] [address] [place], [place] [address]Dr. Ivette Hernandez NEUT # 6.1 103/ul Normal 1.4-6.[address] [facility] Comment on above: Performed By: #### C BC ####[facility] [address] [place], [place] [id number]. Ivette David Neutrophils/100 WBC (Bld) 63.6 % Normal 43.0-75.0 [facility] Comment on above: Performed By: #### C BC ####[facility] [address] [place], [place] [id number]. Ivette David Platelet mean volume (Bld) [Entitic vol] 9.2 fL Critically low 9.5-13.5 [facility] Comment on above: Performed By: #### C BC ####[facility] [address] [place], [place] [address]Dr. Ivette David PLT 267 103/ul Normal 150-450 [facility] Comment on above: Performed By: #### C BC ####[facility] Occsmofwlb3164 [place] [id number]. Ivette Hernandez RBC 3.34 106/ul Critically low 4.20-5.40 [facility] Comment on above: Performed By: #### C BC ####[facility] [address]hj[address] [place], [place] [address]Uc. Ivette Hernandez WBC 9.6 103/ul Normal 4.0-11.0 [facility] Comment on above: Performed By: #### C BC ####[facility] [address]kv[address] [place], [place] [address]Mq. Ivette Hernandez Covid-19 PCR (CVDTBH)on 02-01 SARS-CoV-2 (COVID-19) RNA MARRY+probe Ql (Unsp spec) Not detected Normal NOT DETECTED [facility] Comment on above: Result Comment: When diagnostic testing is negative, the possibility of a false negative should be considered inthe context of a patient's recent exposures and the presence of clinical signs and symptomsconsistent with SARS-CoV-2.This test is not yet approved or cleared by the [place] FDA. When there are no FDA-approved or cleared tests available, and other criteria are met, FDA can make tests available under an emergency access mechanism called an Emergency Use Authorization (EUA). The EUA for this test is supported by the [place] of Health and Human Service's declaration that circumstances exist to justify the emergency use of in vitro diagnostics for the detection and/or diagnosis of the virus that causes COVID-19. This EUA will remain in effect for the duration of the COVID-19 declaration justifying emergency of IVDs, unless it is terminated or revoked by the FDA (after which the test may no longer be used). Performed By: #### C VDTBH ####[facility] H[address]zspjge[address] [place] [id number]. Ivette Hernandez IRON AND TIBCon 02-24-2022 % SATURATION 13.8 % Normal [facility] Comment on above: Performed By: #### V ITAD, FETIBC, B12FOL ####[facility] [address]nr[address] [place], [place] [address]Cg. Ivette Hernandez Iron [Mass/Vol] 26.0 ug/dL Critically low 50.0-170.0 [facility] Comment on above: Performed By: #### V ITAD, FETIBC, B12FOL ####[facility] [address] [place] [address]Dr. Ivette Hernandez TIBC DIRECT 188.0 ug/dL Critically low 250.0-450.[address] [facility] Comment on above: Performed By: #### V ITAD, FETIBC, B12FOL ####[facility] [address] [place] [address]Dr. Ivette Hernandez PROF 14(COMP METB)on 022 Albumin [Mass/Vol] 2.6 g/dL Critically low 3.4-5.0 [facility] Comment on above: Performed By: #### B MAGAZINE WORKER, HSTROPN, CMP ####[facility] [address]rlvr[address]ocs[address] [place] [address]Dr. Ivette Hernandez Albumin/Globulin [Mass ratio] 0.6 {ratio} Normal [facility] Comment on above: Performed By: #### B MAGAZINE WORKER, HSTROPN, CMP ####[facility] [address]wsq[address] [place] [address]Dr. Ivette Hernandez ALP [Catalytic activity/Vol] 79 U/L Normal 46-[address] [facility] Comment on above: Performed By: #### B MAGAZINE WORKER, HSTROPN, CMP ####[facility] [address] [place], [place] [address]Dr. Ivette Hernandez ALT [Catalytic activity/Vol] 18 U/L Normal 14-[address] [facility] Comment on above: Performed By: #### B MAGAZINE WORKER, HSTROPN, CMP ####[facility] Qtniihenmg[address] [place] [address]Dr. Ivette Hernandez Anion gap [Moles/Vol] 7.4 mmol/L Normal [facility] Comment on above: Performed By: #### B MAGAZINE WORKER, HSTROPN, CMP ####[facility] Jxmodtxkge[address] [place] [address]Dr. Ivette Hernandez AST [Catalytic activity/Vol] 14 U/L Critically low 15-[address] [facility] Comment on above: Performed By: #### B MAGAZINE WORKER, HSTROPN, CMP ####[facility] [address]msorcdszs[address] [place] [address]Dr. Ivette Hernandez Bilirubin [Mass/Vol] 0.4 mg/dL Normal 0.2-1.[address] [facility] Comment on above: Performed By: #### B MAGAZINE WORKER, HSTROPN, CMP ####[facility] [address]rsh[address] [place] [address]Dr. Ivette Hernandez Calcium [Mass/Vol] 6.3 mg/dL Critically low 8.5-10.1 Th [facility] Comment on above: Performed By: #### B MAGAZINE WORKER, HSTROPN, CMP ####[facility] [address]ipvtijh[address] [place] [address]Dr. Ivette Hernandez Chloride [Moles/Vol] 108 mmol/L Critically high 98-[address] [facility] Comment on above: Performed By: #### B MAGAZINE WORKER, HSTROPN, CMP ####[facility] [address] [place], [place] [address]Dr. Ivette Hernandez CO2 [Moles/Vol] 31.7 mmol/L Normal 21.0-32.[address] [facility] Comment on above: Performed By: #### B MAGAZINE WORKER, HSTROPN, CMP ####[facility] [address] [place], [place] [address]Dr. Ivette Hernandez Creatinine [Mass/Vol] 1.50 mg/dL Critically high 0.55-1.[address] [facility] Comment on above: Performed By: #### B MAGAZINE WORKER, HSTROPN, CMP ####[facility] [address]jf[address]bi[address] [place], [place] [address]Dr. Ivette Hernandez EGFR-AF AUSTRALIAN 41 mL/min/1.73m2 Critically low >=60 [facility] Comment on above: Performed By: #### B MAGAZINE WORKER, HSTROPN, CMP ####[facility] [address] [place], [place] [address]Dr. Ivette Hernandez EGFR-NON AF AUSTRALIAN 34 mL/min/1.73m2 Critically low >=60 [facility] Comment on above: Performed By: #### B MAGAZINE WORKER, HSTROPN, CMP ####[facility] [address]ssqojnx[address] [place], [place] [address]Dr. Ivette Hernandez Globulin (S) [Mass/Vol] 4.3 g/dL Normal [facility] Comment on above: Performed By: #### B MAGAZINE WORKER, HSTROPN, CMP ####[facility] [address] [place] [address]Dr. Ivette Hernandez Glucose [Mass/Vol] 116 mg/dL Critically high 74-106 T [facility] Comment on above: Performed By: #### B MAGAZINE WORKER, HSTROPN, CMP ####[facility] Cgvwjzqsgc[address] [place] [address]Dr. Ivette Hernandez Potassium [Moles/Vol] 3.1 mmol/L Critically low 3.5-5.[address] [facility] Comment on above: Performed By: #### B MAGAZINE WORKER, HSTROPN, CMP ####[facility] Erdhuhff[address] [place], [place] [address]Dr. Ivette Hernandez Protein [Mass/Vol] 6.9 g/dL Normal 6.4-8.[address] [facility] Comment on above: Performed By: #### B MAGAZINE WORKER, HSTROPN, CMP ####[facility] [address]vel[address] [place], [place] [address]Dr. Ivette Hernandez Sodium [Moles/Vol] 144 mmol/L Normal 136-[address] [facility] Comment on above: Performed By: #### B MAGAZINE WORKER, HSTROPN, CMP ####[facility] Mswtmlqbp[address] [place], [place] [address]Dr. Ivette Hernandez Urea nitrogen [Mass/Vol] 16.0 mg/dL Normal 7.0-18.[address] [facility] Comment on above: Performed By: #### B MAGAZINE WORKER, HSTROPN, CMP ####[facility] Y[address]eq[address] [place], [place] [address]Dr. Ivette Hernandez Urea nitrogen/Creatinine [Mass ratio] 10.7 mg/mg Normal [facility] Comment on above: Performed By: #### B MAGAZINE WORKER, HSTROPN, CMP ####[facility] [address] [place], [place] [address]Dr. Ivette Hernandez TROPONIN, HIGH SENSITIVITYon 10-25-2022 HSTROP 20.8 pg/mL Normal 4.0-51.3 [facility] Comment on above: Result Comment: CUT- OFF POINTS HAVE BEEN ESTABLISHED BASED ON THE FOURTH UNIVERSAL DEFINITIONS OF MYOCARDIALINFARCTION. THE UPPER REFERENCE LIMIT (URL) OF TROPONIN, DEFINED THE 99TH PERCENTILE OFcTnI DISTRIBUTION IN A REFERENCE POPULATION, HAS BEEN CONFIRMED THE DECISION THRESHOLDFOR ID DIAGNOSIS. Performed By: #### B MAGAZINE WORKER, HSTROPN, CMP ####[facility] Z[address]kl[address] [place] [address]Dr. Ivette Hernandez VIT B12 AND FOLATEon 022 Cobalamin (Vitamin B12) [Mass/Vol] 930.0 pg/mL Normal 193.0-986.0 [facility] Comment on above: Performed By: #### V ITAD, FETIBC, B12FOL ####[facility] [address] [place] [address]Dr. Ivette Hernandez FOLATE 22.30 ng/mL Normal 8.60-58.90 [facility] Comment on above: Performed By: #### V ITAD, FETIBC, B12FOL ####[facility] Ec[address] [place] [address]Dr. Ivette Hernandez VITAMIN D 25 OHon 02-24-2022 VIT D 25-OH 35.4 ng/mL Normal [facility] Comment on above: Performed By: #### V ITAD, FETIBC, B12FOL ####[facility] [address]ye[address] [place], [place] [address]Dr. Ivette Hernandez VIT D RANGES SEE BELOW Normal [facility] Comment on above: Result Comment: <20 ng/mL Vit D deficient 20 - <30 ng/mL Vit D insufficient 30 - 100 ng/mL Vit D sufficient >100 ng/mL Potential Toxicity Performed By: #### V ITAD, FETIBC, B12FOL ####[facility] [address] [place], [place] [address]Dr. Ivette Hernandez XR CHEST 1 Von 02-24-2022 XR CHEST 1 V Normal [facility] CHEMISTRYOrdered By: SYSTEM SYSTEM on 02-06-2022 Creatinine [Mass/Vol] 1.5 mg/dL High 0.5 - 1.3 mg/d L [facility] [place]isol GFR/1.73 sq M.predicted among blacks MDRD (S/P/Bld) [Vol rate/Area] 41 mL/min/1.73 m2 Low >=59mL/min/1.73 m2 [facility] [place] S GFR/1.73 sq M.predicted among non-blacks MDRD (S/P/Bld) [Vol rate/Area] 34 mL/min/1.73 m2 Low >=59mL/min/1.73 m2 [facility] [place] S Covid-19 PCR (CVDTB)on 11-01 SARS-CoV-2 (COVID-19) RNA MARRY+probe Ql (Unsp spec) Detected Critically abnormal NOT DETECTED [facility] Comment on above: Result Comment: This test is not yet approved or cleared by the [place] FDA. When there are no FDA-approved or cleared tests available, and other criteria are met, FDA can make tests available under an emergency access mechanism called an Emergency Use Authorization (EUA). The EUA for this test is supported by the [place] of Health and Human Service's (HHS's) declaration that circumstances exist to justify the emergency use of in vitro diagnostics for the detection and/or diagnosis of the virus that causes COVID-19. This EUA will remain in effect (meaning this test can be used) for the duration of the COVID-19 declaration justifying emergency of IVDs, unless it is terminated or revoked by FDA (after which the test may no longer be used). Performed By: #### [facility] ####[facility] [address] [place], [place] [address]Ey. Ivette [facility] [[email or web address] Metabolic Pane marky 10-03-2021 Albumin [Mass/Vol] 3.3 g/dL Low 3.6-5.1 Neal [facility] Electrical Helper Comment on above: Performed By: #### C MP #### [facility] [address] [place], [place] [id number] Albumin/Globulin [Mass ratio] 1.5 {ratio} Normal 1.0-2.5 [facility] [place] [facility] Comment on above: Performed By: #### C MP #### [facility] [address] [place], [place] [id number] ALP [Catalytic activity/Vol] 56 U/L Normal 35-119 [facility] Comment on above: Performed By: #### C MP #### [facility] [address] [place], [place] [id number] ALT [Catalytic activity/Vol] 10 U/L Normal 6-33 [facility] Comment on above: Result Comment: 04/02 Female reference range changed. Performed By: #### C MP #### [facility] [address] [place], [place] [id number] Anion gap [Moles/Vol] 15 mmol/L Normal 12-20 [facility] Comment on above: Result Comment: Effe ctive 05/08/2019 reference range changed. Performed By: #### C MP #### [facility] [address] [place], [place] [id number] AST [Catalytic activity/Vol] 15 U/L Normal 9-34 [facility] Comment on above: Performed By: #### C MP #### [facility] [address] [place], [place] [id number] BUN/CREA 15 Ratio Normal 6-22 [facility] Comment on above: Performed By: #### C MP #### [facility] [address] [place], [place] [id number] Calcium [Mass/Vol] 6.2 mg/dL Low 8.6-10.2 [facility] Comment on above: Performed By: #### C MP #### [facility] [address] [place], [place] [id number] Chloride [Moles/Vol] 108 mmol/L High 98-107 [facility] [place] [facility] Comment on above: Performed By: #### C MP #### [facility] [address] [place], [place] [id number] CO2 [Moles/Vol] 24 mmol/L Normal 20-31 [facility] Comment on above: Performed By: #### C MP #### [facility] [address] [place], [place] [id number] Creatinine [Mass/Vol] 1.9 mg/dL High 0.6-1.4 [facility] Comment on above: Performed By: #### C MP #### [facility] [address] [place], [place] [id number] eGFRAA 31 mL/min/1.73m2 Low >60 [facility] Specialist Comment on above: Performed By: #### C MP #### [facility] [address] [place], [place] [id number] eGFRNAA 26 mL/min/1.73m2 Low >60 [facility] Comment on above: Performed By: #### C MP #### [facility] [address] [place], [place] [id number] Globulin (S) [Mass/Vol] 2.2 g/dL Normal 1.9-3.7 [facility] Comment on above: Performed By: #### C MP #### [facility] [address] [place], [place] [id number] Glucose [Mass/Vol] 107 mg/dL High 65-99 [facility] Comment on above: Result Comment: For FASTING Glucose --- ADA reference ranges: Normal 65-99 mg/dl Prediabetes 100-125 Diabetes >/= 126 Performed By: #### C MP #### [facility] [address] [place], [place] [id number] Potassium [Moles/Vol] 4.3 mmol/L Normal 3.5-5.5 [facility] Comment on above: Performed By: #### C MP #### [facility] [address] [place], [place] [id number] Protein [Mass/Vol] 5.5 g/dL Low 6.1-8.1 [facility] Specialist Comment on above: Performed By: #### C MP #### [facility] [address] [place], [place] [id number] Sodium [Moles/Vol] 143 mmol/L Normal 135-146 [facility] Specialist Comment on above: Performed By: #### C MP #### [facility] [address] [place], [place] [id number] TBIL <0.3 Normal [facility] Comment on above: Performed By: #### C MP #### [facility] [address] [place], [place] [id number] Urea nitrogen [Mass/Vol] 29 mg/dL High 7-25 [facility] Specialist Comment on above: Performed By: #### C MP #### [facility] [address] [place], [place] [id number] Q - B-TYPE NATRIURETIC (BNP) on 10-03-2021 Natriuretic peptide B (Bld) [Mass/Vol] 248 pg/mL High <100 [facility] Electrical Helper Comment on above: Order Comment: [facility] performed at: [facility], [facility], [address], [address] [place], [address], General Maintenance Engineer: Chon Manzano MD [facility] Collection Date/Time: [id number] [facility] Results Received Date/Time: [facility] Reported Date/Time: Result Comment: BNP levels increase with age in the general population with the highest values seen in individuals greater than 75 years of age. Reference: J. Am. Dylan. Cardiol. 2002; 40:976-982. Performed By: #### [id number] #### [facility] Default [address] [place] [address] Complete Blood Counton 09-11 Erythrocyte distribution width (RBC) [Ratio] 14.3 % Normal 11.0-15.0 [facility] Specialist Comment on above: Performed By: #### C MP, CBC #### [facility] [address] [place], [place] [id number] Hematocrit (Bld) [Volume fraction] 30.1 % Low 35.0-47.0 [facility] Specialist Comment on above: Performed By: #### C MP, CBC #### [facility] [address] [place], [place] [id number] Hemoglobin (Bld) [Mass/Vol] 9.1 g/dL Low 11.6-15.5 [facility] Specialist Comment on above: Performed By: #### C MP, CBC #### [facility] [address] [place], [place] [id number] MCH (RBC) [Entitic mass] 28.7 pg Normal 27.0-33.0 [facility] Specialist Comment on above: Performed By: #### C MP, CBC #### [facility] [address] [place], [place] [id number] MCHC (RBC) [Mass/Vol] 30.2 g/dL Low 32.0-36.0 [facility] Comment on above: Performed By: #### C MP, CBC #### [facility] [address] [place], [place] [id number] MCV (RBC) [Entitic vol] 95 fL Normal 80-100 [facility] Comment on above: Performed By: #### C MP, CBC #### [facility] [address] [place], [place] [id number] Platelet mean volume (Bld) [Entitic vol] 9.60 fL Normal 7.50-12.50 [facility] Comment on above: Performed By: #### C MP, CBC #### [facility] [address] [place], [place] [id number] Platelets (Bld) [#/Vol] 219 10*3/uL Normal 140-400 [facility] Comment on above: Performed By: #### C MP, CBC #### [facility] [address] [place], [place] [id number] RBC (Bld) [#/Vol] 3.17 10*6/uL Low 3.90-5.20 [facility] Comment on above: Performed By: #### C MP, CBC #### [facility] [address] [place], [place] [id number] RDW-SD 49.8 fL Normal 37.0-50.0 [facility] Comment on above: Performed By: #### C MP, CBC #### [facility] [address] [place], [place] [id number] WBC (Bld) [#/Vol] 11.0 10*3/uL Normal 3.8-11.0 [facility] Comment on above: Performed By: #### C MP, CBC #### [facility] [address] [place], [place] [id number] Comprehensive Metabolic Pane marky 09-11-2021 Albumin [Mass/Vol] 3.4 g/dL Low 3.6-5.1 [facility] Comment on above: Performed By: #### C MP, CBC #### [facility] [address] [place], [place] [id number] Albumin/Globulin [Mass ratio] 1.5 {ratio} Normal 1.0-2.5 [facility] Comment on above: Performed By: #### C MP, CBC #### [facility] [address] [place], [place] [id number] ALP [Catalytic activity/Vol] 65 U/L Normal 35-119 [facility] Comment on above: Performed By: #### C MP, CBC #### [facility] [address] [place], [place] [id number] ALT [Catalytic activity/Vol] 52 U/L High 6-33 [facility] Comment on above: Result Comment: 04/02 Female reference range changed. Performed By: #### C MP, CBC #### [facility] [address] [facility] [place] [id number] Anion gap [Moles/Vol] 17 mmol/L Normal 12-20 [facility] Comment on above: Result Comment: Effe ctive 05/08/2019 reference range changed. Performed By: #### C MP, CBC #### [facility] [address] [place] [id number] AST [Catalytic activity/Vol] 26 U/L Normal 9-34 [facility] Comment on above: Performed By: #### C MP, CBC #### [facility] [address] [facility] [place] [id number] BUN/CREA 20 Ratio Normal 6-22 [facility] Comment on above: Performed By: #### C MP, CBC #### [facility] [address] [place], [place] [id number] Calcium [Mass/Vol] 7.1 mg/dL Low 8.6-10.2 [facility] Comment on above: Performed By: #### C MP, CBC #### [facility] [address] [place] [id number] Chloride [Moles/Vol] 104 mmol/L Normal 98-107 [facility] [place] [facility] Comment on above: Performed By: #### C MP, CBC #### [facility] [address] [place], [place] [id number] CO2 [Moles/Vol] 27 mmol/L Normal 20-31 [facility] Specialist Comment on above: Performed By: #### C MP, CBC #### [facility] [address] [place], [place] [id number] Creatinine [Mass/Vol] 1.6 mg/dL High 0.6-1.4 [facility] Specialist Comment on above: Performed By: #### C MP, CBC #### [facility] [address] [place], [place] [id number] eGFRAA 38 mL/min/1.73m2 Low >60 [facility] Specialist Comment on above: Performed By: #### C MP, CBC #### [facility] [address] [place], [place] [id number] eGFRNAA 31 mL/min/1.73m2 Low >60 [facility] Specialist Comment on above: Performed By: #### C MP, CBC #### [facility] [address] [place], [place] [id number] Globulin (S) [Mass/Vol] 2.3 g/dL Normal 1.9-3.7 [facility] Specialist Comment on above: Performed By: #### C MP, CBC #### [facility] [address] [place], [place] [id number] Glucose [Mass/Vol] 216 mg/dL High 65-99 [facility] Specialist Comment on above: Result Comment: For FASTING Glucose --- ADA reference ranges: Normal 65-99 mg/dl Prediabetes 100-125 Diabetes >/= 126 Performed By: #### C MP, CBC #### [facility] [address] [place], [place] [id number] Potassium [Moles/Vol] 4.9 mmol/L Normal 3.5-5.5 [facility] Specialist Comment on above: Performed By: #### C MP, CBC #### [facility] [address] [place], [place] [id number] Protein [Mass/Vol] 5.7 g/dL Low 6.1-8.1 [facility] Specialist Comment on above: Performed By: #### C MP, CBC #### [facility] [address] [place], [place] [id number] Sodium [Moles/Vol] 143 mmol/L Normal 135-146 [facility] Comment on above: Performed By: #### C MP, CBC #### [facility] [address] [place], [place] [id number] TBIL <0.3 Normal [facility] Comment on above: Performed By: #### C MP, CBC #### [facility] [address] [place], [place] [id number] Urea nitrogen [Mass/Vol] 33 mg/dL High 7-25 [facility] Comment on above: Performed By: #### C MP, CBC #### [facility] [address] [place], [place] [id number] Q - B-TYPE NATRIURETIC (BNP) on 09-11-2021 Natriuretic peptide B (Bld) [Mass/Vol] 963 pg/mL High <100 [facility] Comment on above: Order Comment: [facility] performed at: [place], [facility], [address] [place] [address], [address] [place] [address], [address], General Maintenance Engineer: Chon Manzano MD [facility] Collection Date/Time: [id number] [facility] Results Received Date/Time: [facility] Reported Date/Time: Result Comment: BNP levels increase with age in the general population with the highest values seen in individuals greater than 75 years of age. Reference: J. Am. Dylan. Cardiol. 2002; 40:976-982. Performed By: #### 3 [id number] #### [facility] Default [address] [place] [address] Complete Blood Counton 06-26 Erythrocyte distribution width (RBC) [Ratio] 14.9 % Normal 11.0-15.0 [facility] Comment on above: Performed By: #### C BC, CMP #### [facility] [address] [place], [place] [id number] Hematocrit (Bld) [Volume fraction] 29.4 % Low 35.0-47.0 [facility] Comment on above: Performed By: #### C BC, CMP #### [facility] [address] [place], [place] [id number] Hemoglobin (Bld) [Mass/Vol] 9.3 g/dL Low 11.6-15.5 [facility] Specialist Comment on above: Performed By: #### C BC, CMP #### [facility] [address] [place], [place] [id number] MCH (RBC) [Entitic mass] 29.3 pg Normal 27.0-33.0 [facility] Specialist Comment on above: Performed By: #### C BC, CMP #### [facility] [address] [place], [place] [id number] MCHC (RBC) [Mass/Vol] 31.6 g/dL Low 32.0-36.0 [facility] Comment on above: Performed By: #### C BC, CMP #### [facility] [address] [place], [place] [id number] MCV (RBC) [Entitic vol] 93 fL Normal 80-100 [facility] Specialist Comment on above: Performed By: #### C BC, CMP #### [facility] [address] [place], [place] [id number] Platelet mean volume (Bld) [Entitic vol] 9.60 fL Normal 7.50-12.50 [facility] Specialist Comment on above: Performed By: #### C BC, CMP #### [facility] [address] [place], [place] [id number] Platelets (Bld) [#/Vol] 228 10*3/uL Normal 140-400 [facility] Specialist Comment on above: Performed By: #### C BC, CMP #### [facility] [address] [place], [place] [id number] RBC (Bld) [#/Vol] 3.17 10*6/uL Low 3.90-5.20 [facility] Specialist Comment on above: Performed By: #### C BC, CMP #### [facility] [address], [place] [id number] RDW-SD 51.3 fL High 37.0-50.0 [facility] Specialist Comment on above: Performed By: #### C BC, CMP #### [facility] [address], [place] [id number] WBC (Bld) [#/Vol] 7.9 10*3/uL Normal 3.8-11.0 [place] [employer] Comment on above: Performed By: #### C BC, CMP #### [facility] [address], [place] [id number] Comprehensive Metabolic Pane marky 06-26-2021 Albumin [Mass/Vol] 4.0 g/dL Normal 3.6-5.1 [place] [employer] Comment on above: Performed By: #### C BC, CMP #### [facility] [address], [place] [id number] Albumin/Globulin [Mass ratio] 1.4 {ratio} Normal 1.0-2.5 [facility] Specialist Comment on above: Performed By: #### C BC, CMP #### [facility] [address], [place] [id number] ALP [Catalytic activity/Vol] 69 U/L Normal 35-119 [facility] Specialist Comment on above: Performed By: #### C BC, CMP #### [facility] [address], [place] [id number] ALT [Catalytic activity/Vol] 18 U/L Normal 6-33 [facility] Specialist Comment on above: Result Comment: 04/02 Female reference range changed. Performed By: #### C BC, CMP #### [facility] [address], [place] [id number] Anion gap [Moles/Vol] 23 mmol/L High 12-20 Nor [facility] Comment on above: Result Comment: Effe ctive 05/08/2019 reference range changed. Performed By: #### C BC, CMP #### [facility] [address], [place] [id number] AST [Catalytic activity/Vol] 18 U/L Normal 9-34 [facility] Specialist Comment on above: Performed By: #### C BC, CMP #### [facility] [address], [place] [id number] BUN/CREA 21 Ratio Normal 6-22 [facility] Electrical Helper Comment on above: Performed By: #### C BC, CMP #### [facility] [address] [place], [place] [id number] Calcium [Mass/Vol] 8.8 mg/dL Normal 8.6-10.2 Neal [facility] Electrical Helper Comment on above: Performed By: #### C BC, CMP #### [facility] [address], [place] [id number] Chloride [Moles/Vol] 106 mmol/L Normal 98-107 [facility] Comment on above: Performed By: #### C BC, CMP #### [facility] [address], [place] [id number] CO2 [Moles/Vol] 18 mmol/L Low 20-31 [facility] Specialist Comment on above: Performed By: #### C BC, CMP #### [facility] [address], [place] [id number] Creatinine [Mass/Vol] 2.1 mg/dL High 0.6-1.4 [facility] Comment on above: Performed By: #### C BC, CMP #### [facility] [address], [place] [id number] eGFRAA 29 mL/min/1.73m2 Low >60 [facility] Specialist Comment on above: Performed By: #### C BC, CMP #### [facility] [address], [place] [id number] eGFRNAA 24 mL/min/1.73m2 Low >60 [facility] Specialist Comment on above: Performed By: #### C BC, CMP #### [facility] [address], [place] [id number] Globulin (S) [Mass/Vol] 2.8 g/dL Normal 1.9-3.7 [facility] Specialist Comment on above: Performed By: #### C BC, CMP #### [facility] [address], [place] [id number] Glucose [Mass/Vol] 145 mg/dL High 65-99 [facility] Electrical Helper Comment on above: Result Comment: For FASTING Glucose --- ADA reference ranges: Normal 65-99 mg/dl Prediabetes 100-125 Diabetes >/= 126 Performed By: #### C BC, CMP #### [facility] [address], [place] [id number] Potassium [Moles/Vol] 4.1 mmol/L Normal 3.5-5.5 [facility] Comment on above: Performed By: #### C BC, CMP #### [facility] [address], [place] [id number] Protein [Mass/Vol] 6.8 g/dL Normal 6.1-8.1 [facility] Electrical Helper Comment on above: Performed By: #### C BC, CMP #### [facility] [address], [place] [id number] Sodium [Moles/Vol] 142 mmol/L Normal 135-146 [facility] Electrical Helper Comment on above: Performed By: #### C BC, CMP #### [facility] [address], [place] [id number] TBIL <0.3 Normal [facility] Specialist Comment on above: Performed By: #### C BC, CMP #### [facility] [address], [place] [id number] Urea nitrogen [Mass/Vol] 44 mg/dL High 7-25 [facility] Electrical Helper Comment on above: Performed By: #### C BC, CMP #### [facility] [address], [place] [id number] Complete Blood Counton 05-22 Erythrocyte distribution width (RBC) [Ratio] 14.4 % Normal 11.0-15.0 [facility] Electrical Helper Comment on above: Performed By: #### C BC, CMP #### [facility] [address], [place] [id number] Hematocrit (Bld) [Volume fraction] 31.3 % Low 35.0-47.0 [facility] Electrical Helper Comment on above: Performed By: #### C BC, CMP #### [facility] [address], [place] [id number] Hemoglobin (Bld) [Mass/Vol] 9.5 g/dL Low 11.6-15.5 [facility] Electrical Helper Comment on above: Performed By: #### C BC, CMP #### [facility] [address], [place] [id number] MCH (RBC) [Entitic mass] 28.7 pg Normal 27.0-33.0 [facility] Comment on above: Performed By: #### C BC, CMP #### [facility] [address], [place] [id number] MCHC (RBC) [Mass/Vol] 30.4 g/dL Low 32.0-36.0 [facility] Comment on above: Performed By: #### C BC, CMP #### [facility] [address], [place] [id number] MCV (RBC) [Entitic vol] 95 fL Normal 80-100 [facility] Comment on above: Performed By: #### C BC, CMP #### [facility] [address], [place] [id number] Platelet mean volume (Bld) [Entitic vol] 9.90 fL Normal 7.50-12.50 [facility] Comment on above: Performed By: #### C BC, CMP #### [facility] [address], [place] [id number] Platelets (Bld) [#/Vol] 275 10*3/uL Normal 140-400 [facility] Comment on above: Performed By: #### C BC, CMP #### [facility] [address], [place] [id number] RBC (Bld) [#/Vol] 3.31 10*6/uL Low 3.90-5.20 [facility] Comment on above: Performed By: #### C BC, CMP #### [facility] [address], [place] [id number] RDW-SD 49.4 fL Normal 37.0-50.0 [facility] Comment on above: Performed By: #### C BC, CMP #### [facility] [address], [place] [id number] WBC (Bld) [#/Vol] 11.2 10*3/uL High 3.8-11.0 [facility] Comment on above: Performed By: #### C BC, CMP #### [facility] [address], [place] [id number] Comprehensive Metabolic Pane maryk 05-22-2021 Albumin [Mass/Vol] 3.9 g/dL Normal 3.6-5.1 [place] [employer] Comment on above: Performed By: #### C BC, CMP #### [facility] [address], [place] [id number] Albumin/Globulin [Mass ratio] 1.3 {ratio} Normal 1.0-2.5 [facility] Electrical Helper Comment on above: Performed By: #### C BC, CMP #### [facility] [address], [place] [id number] ALP [Catalytic activity/Vol] 68 U/L Normal 35-119 [facility] Specialist Comment on above: Performed By: #### C BC, CMP #### [facility] [address], [place] [id number] ALT [Catalytic activity/Vol] 16 U/L Normal 6-33 [facility] Specialist Comment on above: Result Comment: 04/02 Female reference range changed. Performed By: #### C BC, CMP #### [facility] [address], [place] [id number] Anion gap [Moles/Vol] 21 mmol/L High 12-20 [facility] Specialist Comment on above: Result Comment: Effe ctive 05/08/2019 reference range changed. Performed By: #### C BC, CMP #### [facility] [address], [place] [id number] AST [Catalytic activity/Vol] 20 U/L Normal 9-34 [facility] Specialist Comment on above: Performed By: #### C BC, CMP #### [facility] [address], [place] [id number] BUN/CREA 16 Ratio Normal 6-22 [facility] Electrical Helper Comment on above: Performed By: #### C BC, CMP #### [facility] [address], [place] [id number] Calcium [Mass/Vol] 7.9 mg/dL Low 8.6-10.2 Neal [place]n [place] [employer] Comment on above: Performed By: #### C BC, CMP #### [facility] [address], [place] [id number] Chloride [Moles/Vol] 102 mmol/L Normal 98-107 [facility] Comment on above: Performed By: #### C BC, CMP #### [facility] [address] [place] [id number] CO2 [Moles/Vol] 26 mmol/L Normal 20-31 [facility] Comment on above: Performed By: #### C BC, CMP #### [facility] [address] [place] [id number] Creatinine [Mass/Vol] 2.0 mg/dL High 0.6-1.4 [facility] Comment on above: Performed By: #### C BC, CMP #### [facility] [address] [place] [id number] eGFRAA 30 mL/min/1.73m2 Low >60 [facility] Comment on above: Performed By: #### C BC, CMP #### [facility] [address] [facility] [place] [place] [id number] eGFRNAA 25 mL/min/1.73m2 Low >60 [facility] Comment on above: Performed By: #### C BC, CMP #### [facility] [address] [place] [id number] Globulin (S) [Mass/Vol] 3.1 g/dL Normal 1.9-3.7 [facility] Comment on above: Performed By: #### C BC, CMP #### [facility] [address], [place] [id number] Glucose [Mass/Vol] 57 mg/dL Low 65-99 [facility] Comment on above: Result Comment: For FASTING Glucose --- ADA reference ranges: Normal 65-99 mg/dl Prediabetes 100-125 Diabetes >/= 126 Performed By: #### C BC, CMP #### [facility] [address] [place] [id number] Potassium [Moles/Vol] 4.9 mmol/L Normal 3.5-5.5 [facility] Comment on above: Performed By: #### C BC, CMP #### [facility] [address] [facility] [place] [id number] Protein [Mass/Vol] 7.0 g/dL Normal 6.1-8.1 [place] [employer] Comment on above: Performed By: #### C BC, CMP #### [facility] [address], [place] [id number] Sodium [Moles/Vol] 144 mmol/L Normal 135-146 [place] [employer] Comment on above: Performed By: #### C BC, CMP #### [facility] [address], [place] [id number] TBIL <0.3 Normal [facility] Specialist Comment on above: Performed By: #### C BC, CMP #### [facility] [address], [place] [id number] Urea nitrogen [Mass/Vol] 31 mg/dL High 7-25 [facility] Specialist Comment on above: Performed By: #### C BC, CMP #### [facility] [address], [place] [id number] Hemoglobin A1Con 05-22-2021 EAG 125.50 Normal [facility] Specialist Comment on above: Performed By: #### A 1C #### [facility] [address], [place] [id number] HbA1c (Bld) [Mass fraction] 6.0 % Normal 4.0-6.0 [facility] Specialist Comment on above: Performed By: #### A 1C #### [facility] [address], [place] [id number] BASIC METABOLIC PANELon 04-2 Calcium 9.6 mg/dL Normal 8.6-10.3 [facility] Comment on above: Performed By: #### 0 0071 ####[facility] [place] [address], [facility] Chloride 100 mmol/L Normal 98-107 [facility] Comment on above: Performed By: #### 0 0071 ####[facility] [place] [address], [facility] CO2 28 mmol/L Normal 21-31 [facility] Comment on above: Performed By: #### 0 0071 ####[facility] [facility].[address] Creatinine 1.15 mg/dL Normal 0.60-1.20 [facility] Comment on above: Performed By: #### 0 0071 ####[facility] [place] [address], [facility] eGFR (black) 57 ml/min/1.73sq m Abnormal >60 [facility] Comment on above: Performed By: #### 0 0071 ####[facility] [facility] [place] [address], [facility] eGFR (non-black) 47 ml/min/1.73sq m Abnormal >60 [facility] Comment on above: Performed By: #### 0 0071 ####[place] [address] [facility].[address] Glucose mass conc 163 mg/dL High 70-100 [facility] Comment on above: Performed By: #### 0 0071 ####[facility] [facility].[address] Potassium molar conc 4.1 mmol/L Normal 3.5-5.1 [facility] Comment on above: Performed By: #### 0 0071 ####[place] [address] [facility].[address] Sodium 135 mmol/L Low 136-145 [facility] Comment on above: Performed By: #### 0 0071 ####[facility] [facility].[address] Urea nitrogen 17 mg/dL Normal 7-25 [facility] Comment on above: Performed By: #### 0 0071 ####[facility] [facility].[address] CBC W/DIFFon 08-24-2017 ABS BASOPHILS 0.1 10*3/uL Normal 0.0-0.2 [facility] Comment on above: Performed By: #### 5 0103 ####[facility] [facility].[address] ABS IMM GRANS 0.1 10*3/uL Normal 0.0-0.2 [facility] Comment on above: Performed By: #### 5 0103 ####[facility] [facility].[address] Basophils Auto #/vol (Bld) 0.5 % Normal 0.0-1.0 [facility] Comment on above: Performed By: #### 0103 ####[facility] Eosinophils 0.4 10*3/uL Normal 0.0-0.5 [facility] Comment on above: Performed By: #### 0103 ####[facility] [facility].[address] Eosinophils/100 leukocytes 3.5 % Normal 0.0-6.0 [facility] Comment on above: Performed By: #### 5 0103 ####[facility] Erythrocyte distribution width Auto Ratio (RBC) 14.2 % Normal 11.5-15.0 [facility] Comment on above: Performed By: #### 5 0103 ####[facility] [facility].[address] Erythrocytes (RBC) 0 % Normal 0-0 [facility] Comment on above: Performed By: #### 5 0103 ####[facility] Erythrocytes (RBC) 4.12 10*6/uL Normal 3.80-5.00 [facility] Comment on above: Performed By: #### 5 3 ####[facility] Hematocrit (HCT) 37.1 % Normal 36.0-45.0 [facility] Comment on above: Performed By: #### 5 0103 ####[facility] [facility].[address] Hemoglobin mass conc (Bld) 12.3 g/dL Normal 12.0-15.0 [facility] Comment on above: Performed By: #### 5 0103 ####[facility] [facility].[address] IMMATURE GRANS 0.4 % Normal 0.0-1.0 [facility] Comment on above: Performed By: #### 5 0103 ####[place] [id number] [address] Lymphocytes 5.1 10*3/uL High 1.2-4.0 [facility] Comment on above: Performed By: #### 5 0103 ####[facility] [facility].[address] Lymphocytes/100 leukocytes 40.5 % Normal 20.0-45.0 [facility] Comment on above: Performed By: #### 5 0103 ####[facility] [facility].[address] MCH 29.9 pg Normal 27.0-33.0 [facility] Comment on above: Performed By: #### 5 0103 ####[facility] [facility].[address] MCHC mass conc (RBC) 33.2 g/dL Normal 32.0-35.0 [facility] Comment on above: Performed By: #### 5 3 ####[facility] [facility].[address] MCV 90.0 fL Normal 82.0-98.0 [facility] Comment on above: Performed By: #### 5 0103 ####[facility] Monocytes 0.9 10*3/uL Normal 0.1-1.0 [facility] Comment on above: Performed By: #### 5 0103 ####[facility] MONOS 7.5 % Normal 5.0-12.0 [facility] Comment on above: Performed By: #### 5 0103 ####[facility] Neutrophils 6.0 10*3/uL Normal 1.6-7.6 [facility] Comment on above: Performed By: #### 5 0103 ####[place] [address] [address] Neutrophils/100 leukocytes 47.6 % Normal 40.0-72.0 [facility] Comment on above: Performed By: #### 5 0103 ####[facility] PLAT CNT 239 10*3/uL Normal 150-400 [facility] Comment on above: Performed By: #### 5 0103 ####[facility] WBC (Leukocytes) 12.5 10*3/uL High 4.0-10.6 [facility] Comment on above: Performed By: #### 5 0103 ####[address] ABDOMEN AND PELVIS WO CON TRASTon 08-24-2017 CT ABDOMEN AND PELVIS WO CONTRAST [facility] [place] [id number] ========Patient Name: MARTIN HAGEN : 1950Sex: FAge: Race: WhiteMRN: [id number]. Location: 85Patient Status: DVisit #: [id number] Date: 08/24/2017 2:00:00 PMCompleted Date: 08/24/2017 04:18 PMRequesting Provider: KASANDRA BROWN Attending Provider: KASANDRA BROWN Report Copy To: SHAWN BARBER Signs & Symptoms: K43.2 Incisional hernia without obstruction or gangrene Y90Tryavpq: AthenaComments: , , oral contrast only , , , Ordering Provider - KASANDRA BROWN MD , Rendering Provider - KASANDRA BROWN MD , Exam: CT ABDOMEN AND PELVIS WO CONTRASTAccession #: [id number] CT ABDOMEN AND PELVIS WO CONTRAST 08/24/2017 4:21 PM EDT SIGNS AND SYMPTOMS: K43.2 Incisional hernia without obstruction or gangrene I10 TECHNOLOGIST COMMENTS: pt. c/o pulling feeling, bulge / hernia near her cholecystectomy inscision, cholecystectomy 18 mos. ago, hx. hysterectomy, bilateral inguinal hernia repair, marker place over area, dx. Incisional hernia without obstruction or gangrene. QUESTION FOR THE RADIOLOGIST: , , oral contrast only , , , Ordering Provider - KASANDRA BROWN MD , Rendering Provider - KASANDRA BROWN MD , PROTOCOL: Axial CT images of the abdomen and pelvis were obtained without IV contrast. TECHNIQUE: Multidetector ct axial images of the abdomen and pelvis were obtained without IV contrast. Multiplanar reformats were performed and viewed on a separate workstation and reviewed to further define anatomy and possible pathology. COMPARISON: None. FINDINGS: Lower Chest: Mild dependent atelectasis, greater on the right. Some lingular scarring or atelectasis is also noted. ABDOMEN:Liver: Within normal limits.Bile Ducts: Normal caliber.Gallbladder: Surgically absent.Pancreas: Within normal limits.Spleen: Single punctate calcification related to prior granulomatous disease.Adrenals: Bilateral low-density lesions within the adrenal glands suggestive of adenomas. However, these measure roughly 15 Hounsfield units and MRI or adrenal protocol CT is recommended to confirm.Kidneys: Small slightly hyperdense cyst along the inferior right kidney. Attention to this lesion on follow-up CT or MRI is recommended. Pelvis:Reproductive Organs: No pelvic masses.Ureters: Within normal limits.Bladder: Within normal limits. Bowel: Small bowel is nondilated. Diverticulosis throughout the colon. No evidence of acute diverticulitis. Evidence of prior partial small bowel resection.Mesenteric Lymph Nodes: Scattered mesenteric and periaortic lymph nodes are noted, however these are pathologically enlarged. Largest measures 12 x 19 mm axially. See series 4 image 142Peritoneum: No ascites or free air, no fluid collection.Vessels: Scattered atherosclerotic changes the abdominal aorta and branch circulation.Retroperit oneum: Scattered retroperitoneal lymph nodes, without pathologic enlargement.Abdominal Wall: There is a shallow, wide necked ventral hernia over the right anterior abdominal wall in the region of external marker. There is some subcutaneous edema and infiltrate changes in this region, which may partly relate to prior surgery. Some large bowel is noted along this region.Bones: Degenerative changes, most significant at L4-5. No acute bony abnormality. IMPRESSION: * Shallow, wide necked ventral hernia along the right anterior abdominal wall in the region of external marker. Some bowel loops extend into the hernia, without evidence of obstruction or strangulation.* Scattered mesenteric and retroperitoneal lymphadenopathy, largest near the mesenteric root measuring up to 12 x 19 mm axially.* Bilateral adrenal nodules, likely adenomas. However, these have density of 15 Hounsfield units and adrenal protocol CT or MRI is recommended for confirmation.* Slightly hyperdense 16 mm right inferior pole renal cyst. Contrast enhanced exam is recommended for further evaluation. Approved by:Luis Rush on 08/24/2017 5:15 PM EDT. I, Colin Clemente, have reviewed the images and report and concur with these findings. Electronically signed by:Colin Clemente. Transcribed by: [email or web address], User Resident: LUIS RUSHElectronically Signed by: COLIN CLEMENTE @ 08/25/2017 10:20 PMI personally read this/these film(s) with this resident Normal [facility] Comment on above: Order Comment: , , o ral contrast only , , , Ordering Provider - KASANDRA BROWN MD , Rendering Provider - KASANDRA BROWN MD , HEMOGLOBIN A1Con 08-24-2017 Glucose mass conc 146 mg/dL High 70-126 [facility] Comment on above: Performed By: #### 4 [id number] ####[facility] [facility].[address] Hemoglobin A1c/Hemoglobin.total mass fraction (Bld) 6.7 % High 4.0-6.0 [facility] Comment on above: Performed By: #### 4 6447 ####[facility] [facility].[address] PROTHROMBIN TIMEon 8 INR Coag RelTime (PPP) 1.10 {INR} Normal 0.91-1.16 [facility] Comment on above: Result Comment: ACCC P RECOMMENDED INR FOR WARFARIN THERAPY CONDITION INRPROPHYLAXIS OF VENOUS THROMBOSIS 2-3(HIGH-RISK SURGERY)TREATMENT OF VENOUS THROMBOSIS 2-3TREATMENT OF PULMONARY EMBOLISM 2-3PREVENTION OF SYSTEMIC EMBOLISM: 2-3 ACUTE MYOCARDIAL INFARCTION TISSUE HEART VALVES VALVULAR HEART DISEASE ATRIAL FIBRILLATION RECURRENT SYSTEMIC EMBOLISMMECHANICAL HEART VALVE 2.5-3.5 FROM: ORAL ANTICOAGULANTS. MECHANISM OF ACTION, CLINICALEFFECTIVENESS, AND OPTIMAL THERAPEUTIC RANGE. [id number]-246S. Performed By: #### 5 6101 ####[facility] [facility].[address] Prothrombin time (PT) Coag time (PPP) 14.3 s Normal 12.3-14.8 [facility] Comment on above: Result Comment: ALL RESULTS MUST BE INTERPRETED WITH RESPECT TO BLOOD DRAWING ARTIFACTOR DILUTION ERROR OF ANTICOAGULANT AT THE TIME OF SAMPLING. Performed By: #### 5 6101 ####[facility] [facility].[address] Vital Signs Date Time Vital Sign Value Performing Clinician Facility 04-29-2023 14:24-0500 Body height 152.[address] 04-29-2023 14:24-0500 Body mass index (BMI) [Ratio] 31.25 kg/m2 [address] 04-29-2023 14:24-0500 Body weight 72.[address] 04-29-2023 14:24-0500 Diastolic blood pressure 64 mm[Hg] [address] 04-29-2023 14:24-0500 Systolic blood pressure 122 mm[Hg] [address] 04-28-2023 09:43-0500 Body temperature 96.98 [degF] Jacqui Michael [facility] 04-28-2023 09:43-0500 Diastolic blood pressure 86 mm[Hg] Jacqui Lue [facility] 04-28-2023 09:43-0500 Heart rate 74 /min Jacuqi Michael [facility] 04-28-2023 09:43-0500 Systolic blood pressure 124 mm[Hg] Jacqui Lue [facility] 03-30-2023 13:55-0500 Body height 152.4 cm Rama Kaba [employer]CE[employer] ROOM SUPERVISOR Work Phone: [facility] 03-30-2023 13:55-0500 Body mass index (BMI) [Ratio] 31.25 kg/m2 Rama Kaba [employer] S[employer]CELL ROOM SUPERVISOR Work Phone: [facility] 03-30-2023 13:55-0500 Body weight 72.58 kg Rama Kaba [employer] S[employer]CE[employer] ROOM SUPERVISOR Work Phone: [facility] 03-30-2023 13:55-0500 Diastolic blood pressure 60 mm[Hg] Rama Kaba [employer] SAND[employer]CELL ROOM SUPERVISOR Work Phone: [facility] 03-30-2023 13:55-0500 Heart rate 70 /min Rama Kaba [employer] S[employer]CE[employer] ROOM SUPERVISOR Work Phone: [facility] 03-30-2023 13:55-0500 Systolic blood pressure 128 mm[Hg] Rama Kaba M[employer] SAND[employer]CELL ROOM SUPERVISOR Work Phone: [facility] 02-03-2023 09:07-0400 Blood Pressure Location Jacqui Lue [facility] 02-03-2023 09:07-0400 Diastolic blood pressure 74 mm[Hg] Jacqui Lue [facility] 02-03-2023 09:07-0400 Heart rate 68 /min Jacqui Lue [facility] 02-03-2023 09:07-0400 Respiratory rate 16 /min Jacqui Lue [facility] 02-03-2023 09:07-0400 Systolic blood pressure 120 mm[Hg] Jacqui Michael [facility] 12-29-2022 14:17-0400 Blood Pressure Location INES DANN [facility] 12-29-2022 14:17-0400 Diastolic blood pressure 70 mm[Hg] INES DANN [facility] 12-29-2022 14:17-0400 Heart rate 70 /min INES DANN [facility] 12-29-2022 14:17-0400 Respiratory rate 16 /min INES DANN [facility] 12-29-2022 14:17-0400 Systolic blood pressure 132 mm[Hg] INES DANN [facility] 12-28-2022 14:33-0400 Body height 152.4 cm Shawn Barber Work Phone: [facility] DO Work Phone: 12-28-2022 14:33-0400 Body mass index (BMI) [Ratio] 29.49 kg/m2 Shawn Barber Work Phone: [facility] 250 DO Work Phone: 12-28-2022 14:33-0400 Body surface area Derived from formula 1.66 m2 Shawn Barber Work Phone: [facility] 250 DO Work Phone: 12-28-2022 14:33-0400 Body weight 68.49 kg Shawn Barber Work Phone: [facility] DO Work Phone: 12-28-2022 14:33-0400 Diastolic blood pressure 44 mm[Hg] Shawn Barber Work Phone: [facility] DO Work Phone: 12-28-2022 14:33-0400 Heart rate 76 /min Shawn Barber Work Phone: [facility] DO Work Phone: 12-28-2022 14:33-0400 Systolic blood pressure 80 mm[Hg] Shawncris Barber Work Phone: [facility] DO Work Phone: 12-28-2022 14:33-0400 11 1 Shawn Barber Work Phone: [facility] DO Work Phone: Comment on above: PHQ-9 TS 11-21-2022 16:00-0400 Inhaled oxygen flow rate 4 L/min II Shawn Barber Work Phone: [facility] 11-21-2022 15:53-0400 Heart rate 65 /min II Shawn Barber Work Phone: [facility] 11-21-2022 15:53-0400 Respiratory rate 20 /min II Shawn Barber Work Phone: [facility] 11-21-2022 12:00-0400 Diastolic blood pressure 79 mm[Hg] II Shawn Barber Work Phone: [facility] 11-21-2022 12:00-0400 SaO2% (BldA) [Mass fraction] 93 % II Shawn Barber Work Phone: [facility] 11-21-2022 12:00-0400 Systolic blood pressure 149 mm[Hg] II Shawn Barber Work Phone: [facility] 11-21-2022 08:30-0400 Body temperature 97.9 [degF] II Shawn Barber Work Phone: [facility] 11-21-2022 06:00-0400 Body weight 74 kg II Shawn Barber Work Phone: [facility] 11-19-2022 09:40-0400 Body height 152.4 cm II Shawn Barber Work Phone: [facility] 11-18-2022 19:23-0400 Diastolic blood pressure 88 mm[Hg] II Shawn Barber Work Phone: [facility] 11-18-2022 19:23-0400 Heart rate 82 /min II Shawn Barber Work Phone: [facility] 11-18-2022 19:23-0400 Inhaled oxygen flow rate 3 L/min II Shawn Barber Work Phone: [facility] 11-18-2022 19:23-0400 Respiratory rate 18 /min II Shawn Barber Work Phone: [facility] 11-18-2022 19:23-0400 SaO2% (BldA) [Mass fraction] 96 % II Shawn Barber Work Phone: [facility] 11-18-2022 19:23-0400 Systolic blood pressure 194 mm[Hg] II Shawn Barber Work Phone: [facility] 11-18-2022 16:13-0400 Body height 152.4 cm II Shawn Barber Work Phone: [facility] 11-18-2022 16:13-0400 Body temperature 98.3 [degF] II Shawn Barber Work Phone: [facility] 11-18-2022 16:13-0400 Body weight 75.29 kg II Shawn Barber Work Phone: [facility] 08-27-2022 16:00-0400 Body height 152.4 cm Ziggy Guerra Other [employer] Other 08-27-2022 16:00-0400 Body mass index (BMI) [Ratio] 34.8 kg/m2 Ziggy Dianne Other [employer] Other 08-27-2022 16:00-0400 Body temperature 97.5 [degF] Ziggy Dianne Other [employer] Other 08-27-2022 16:00-0400 Body weight 80.83 kg Ziggy Dianne Other [employer] Other 08-27-2022 16:00-0400 Diastolic blood pressure 70 mm[Hg] Ziggy Dianne Other [employer] Other 08-27-2022 16:00-0400 Respiratory rate 18 /min Ziggy Dianne Other [employer] Other 08-27-2022 16:00-0400 SaO2% (BldA) [Mass fraction] 91 % Ziggy Dianne Other [employer] Other 08-27-2022 16:00-0400 Systolic blood pressure 124 mm[Hg] Ziggy Dianne Other [employer] Other 07-29-2022 09:08-0400 Blood Pressure Location Jacqui Lue [facility] 07-29-2022 09:08-0400 Diastolic blood pressure 89 mm[Hg] Jacqui Lue [facility] 07-29-2022 09:08-0400 Heart rate 66 /min Jacqui Lue [facility] 07-29-2022 09:08-0400 Systolic blood pressure 131 mm[Hg] Jacqui Lue [facility] 06-10-2022 10:24-0500 Blood Pressure Location Jacqui Lue [facility] 06-10-2022 10:24-0500 Diastolic blood pressure 80 mm[Hg] Jacqui Lue [facility] 06-10-2022 10:24-0500 Heart rate 77 /min Jacqui Lue [facility] 06-10-2022 10:24-0500 Systolic blood pressure 130 mm[Hg] Jacqui Lue [facility] 02-16-2022 13:05-0400 Blood Pressure Location Montero SALAM [facility] 02-16-2022 13:05-0400 Diastolic blood pressure 76 mm[Hg] Montero SALAM [facility] 02-16-2022 13:05-0400 Heart rate 68 /min Montero SALAM [facility] 02-16-2022 13:05-0400 Respiratory rate 30 /min Montero SALAM [facility] 02-16-2022 13:05-0400 SaO2% (BldA) [Mass fraction] 98 % Montero SALAM [facility] 02-16-2022 13:05-0400 Systolic blood pressure 142 mm[Hg] Montero SALAM [facility] 02-16-2022 13:00-0400 Respiratory rate 25 /min Montero SALAM [facility] 02-16-2022 13:00-0400 Systolic blood pressure 127 mm[Hg] Montero SALAM [facility] 02-16-2022 12:55-0400 Blood Pressure Location Montero SALAM [facility] 02-16-2022 12:55-0400 Diastolic blood pressure 71 mm[Hg] Montero SALAM [facility] 02-16-2022 12:55-0400 Heart rate 70 /min Montero SALAM [facility] 02-16-2022 12:55-0400 Respiratory rate 27 /min Montero SALAM [facility] 02-16-2022 12:55-0400 SaO2% (BldA) [Mass fraction] 97 % Montero SALAM [facility] 02-16-2022 12:55-0400 Systolic blood pressure 119 mm[Hg] Montero SALAM [facility] 02-16-2022 12:42-0400 Body temperature 96.98 [degF] Montero SALAM [facility] 02-16-2022 10:46-0400 Body temperature 96.8 [degF] Montero SALAM [facility] 12-31-2021 14:58-0400 Diastolic blood pressure 80 mm[Hg] Lani Lisy [facility] 12-31-2021 14:58-0400 Mean blood pressure 100 mm[Hg] Lani Lisy [facility] 12-31-2021 14:58-0400 Systolic blood pressure 140 mm[Hg] Lani Lisy [facility] 12-31-2021 14:54-0400 Blood Pressure Location Lani Gregoryz [facility] 12-31-2021 14:54-0400 Body temperature 97.7 [degF] Lani Lisy [facility] 12-31-2021 14:54-0400 Diastolic blood pressure 77 mm[Hg] Lani Wasserman [facility] 12-31-2021 14:54-0400 Heart rate 69 /min Lani Lisy [facility] 12-31-2021 14:54-0400 Systolic blood pressure 144 mm[Hg] Lani Lisy [facility] 12-13-2021 11:05-0400 Body weight 79.56 kg Smiley Davila Other [employer] [facility] [employer] Other 12-13-2021 11:05-0400 Diastolic blood pressure 70 mm[Hg] Smiley Davila Other [employer] Other 12-13-2021 11:05-0400 Respiratory rate 18 /min Smiley Davila Other [employer] Other 12-13-2021 11:05-0400 SaO2% (BldA) [Mass fraction] 94 % Smiley Davila Other [employer] Other 12-13-2021 11:05-0400 Systolic blood pressure 129 mm[Hg] Smiley Davila Other [employer] Other Encounters Encounter Date Encounter Type Care Provider Facility Start: 05-14-2023 [facility]ulatory [facility] Start: 04-29-2023 End: 04-29-2023 Subsequent hospital visit by physician Doreen Garcia Echo/Vasc Room [facility] Comment on above: Nonrheumatic aortic valve stenosis; Pulmonary hypertension (CMS/HCC) Start: 04-28-2023 End: 04-29-2023 ambulatory Jacqui Michael Facility:[facility] Start: 04-28-2023 End: 04-28-2023 Patient encounter procedure Jacqui Michael [facility] Start: 04-20-2023 ambulatory Jacqui iMchael Facility:[facility] Start: 04-05-2023 End: 04-05-2023 ambulatory SHAWN Michel BARBER Not Available Start: 03-30-2023 End: 03-30-2023 Office outpatient visit 25 minutes Rama Kaba [employer] ROOM SUPERVISOR Work Phone: [facility] Comment on above: Paroxysmal atrial fi brillation (CMS/HCC) (Primary Dx); Anticoagulated; Nonrheumatic aortic valve stenosis; Abnormal echocardiogram; Pulmonary hypertension (CMS/HCC); Stage 3a chronic kidney disease (CMS/HCC); Current smoker; Diabetes mellitus type II, non insulin dependent (CMS/HCC); BMI 31.0-31.9,adult; Mixed hyperlipidemia; Essential hypertension Start: 02-22-2023 End: 02-23-2023 ambulatory Jacqui Michael [place] Start: 02-22-2023 End: 02-22-2023 Patient encounter procedure Jacqui Michael [facility] Start: 02-03-2023 End: 02-04-2023 ambulatory Jacqui Michael [place] [place] Start: 02-03-2023 End: 02-04-2023 ambulatory Jacqui Michael Facility:[facility] Start: 02-03-2023 End: 02-03-2023 Patient encounter procedure Jacqui Michael [facility] Start: 12-29-2022 End: 12-30-2022 ambulatory INES WELCH Facility: Juan Start: 12-29-2022 End: 12-29-2022 Patient encounter procedure INES E DANN [facility] Start: 12-28-2022 Patient encounter procedure Shawn Barber Work Phone: [facility] 250 DO Work Phone: Start: 12-28-2022 ambulatory Rama Kaba Facility:[id number] Start: 11-21-2022 ambulatory Rama Kaba Facility:[id number] Start: 11-20-2022 ambulatory Rama Kaba Facility:[id number] Start: 11-19-2022 ambulatory Rama Kaba Facility:[id number] Start: 11-18-2022 ambulatory Rama Kaba Facility:[id number] Start: 11-18-2022 End: 11-21-2022 Evaluation and management of inpatient Hilary Antunez Facility:[facility] Start: 11-18-2022 End: 11-21-2022 Evaluation and management of inpatient MARTHA Barber Work Phone: [facility] Work Phone: Start: 10-27-2022 End: 10-27-2022 ambulatory PHILL SIMPSON [facility] Start: 09-22-2022 End: 09-22-2022 ambulatory DARLENEAB SALOMÓN [facility] Start: 09-11-[address] SHAWN BARBER Facilit y:[facility] Start: 09-06-2022 End: 09-08-2022 Evaluation and management of inpatient DR LALI RIVERA . Facility:[facility] Start: 08-27-2022 End: 08-27-2022 ambulatory Ziggy Guerra Other [facility] [employer] Other Start: 08-27-2022 Office outpatient ne w 45 minutes Ziggy Guerra [facility] Start: 07-29-2022 End: 07-30-2022 ambulatory Jacqui MJesse Lue Facility:[facility] Start: 07-29-2022 End: 07-29-2022 Patient encounter procedure Jacqui Michael [facility] Start: 07-22-[address] SHAWN Virk y:[facility] Start: 07-08-2022 End: 07-09-2022 ambulatory INES WELCH Facility:[facility] Start: 07-08-2022 End: 07-08-2022 Patient encounter procedure INES WELCH [facility] Start: 07-07-2022 End: 07-07-[address] SILVA MAXWELL Facility:[facility] Start: 07-06-2022 End: 07-06-20[facility] Start: 06-15-2022 End: 06-16-2022 ambulatory INES WELCH Facility:[facility] Start: 06-14-2022 End: 06-15-2022 ambulatory INES WELCH Facility:[facility] Start: 06-10-2022 End: 06-11-2022 ambulatory Jacqui Mendiolae [place] [place] Start: 06-10-2022 End: 06-10-2022 Lab Drop off Jacqui Michael [facility] Start: 06-10-2022 End: 06-11-2022 ambulatory Jacqui MJesse Lue Facility:[facility] Start: 06-10-2022 End: 06-10-2022 Patient encounter procedure Jacqui Mendiolae [facility] Start: 05-05-2022 End: 05-06-[address] ANITA KEYS Facility:[facility] Start: 04-16-2022 End: 04-16-2022 ambulatory MADI SANCHEZ Facility:[facility] Start: 04-15-2022 End: 04-28-[address] JOSE SON . Facility:[facility] Start: 04-13-2022 End: 04-13-2022 [facility] Start: 04-10-2022 End: 04-13-2022 Evaluation and management of inpatient DR JOSE SON . Facility:[facility] Start: 03-08-2022 End: 03-10-[address] SHAWN BARBER Facility:[facility] Start: 03-05-2022 End: 03-08-[address] SHAWN BARBER Facility:[facility] Start: 03-04-2022 End: 03-04-[address] JOSE SON . Facility:[facility] Start: 02-27-2022 End: 03-01-[address] JOSE SON . Facility:[facility] Start: 02-25-2022 End: 02-27-2022 Evaluation and management of inpatient DR SHAWN BARBER Facility:[facility] Start: 02-16-2022 End: 02-16-2022 Patient encounter procedure Kylah BELL [facility] Start: 02-06-2022 End: 02-06-2022 Patient encounter procedure Lani Wasserman [facility] Start: 12-31-2021 End: 05-07-2022 Recurring Kylah BELL [facility] Start: 12-31-2021 End: 12-31-2021 Patient encounter procedure Lani Wasserman [facility] Start: 12-13-2021 End: 12-13-2021 ambulatory Smiley Davila Other [employer] Other Start: 12-13-2021 Office outpatient ne w 20 minutes Smiley Davila [facility] Start: 11-28-2021 End: 11-28-2021 ambulatory JOHN RENEE Facility:[facility] Start: 10-07-2021 End: 10-08-[address] MAHAMED RM Facility:[facility] Start: 09-23-2021 End: 09-24-[address] MAHAMED RM Facility:[facility] Start: 08-24-2017 End: 08-25-2017 Ambulatory KASANDRA BROWN Facility:[facility] Procedures Date Procedure Procedure Detail Performing Clinician Start: 04-13-2023 Mammography Doreen 2 Start: 02-22-2023 Transurethral cystoscopy Jacqui Michael Start: 11-21-2022 Plain chest X-ray II Da nnoi Barber Work Phone: Start: 11-18-2022 Plain chest X-ray II Da noni Barber Work Phone: Start: 09-22-2022 Follow-up visit Follow-up AB CRIS KOROMA Start: 09-07-2022 Transfusion of Nonau tologous Red Blood Cells into Peripheral Vein, Percutaneous Approach DR MAHAMED RM Start: 02-16-2022 Colonoscopy Colonoscopy Montero INOCENCIA Chris Start: 12-02-2020 Cystoscopy Jacqui Lue Start: 05-30-2020 Mammography Rama Johnnie h [employer] ROOM SUPERVISOR Work Phone: Start: 05-03-2020 Colonoscopic polypectomy Shawn Barber Work Phone: Cholecystectomy Lani conklin Colonoscopy Lani Wasserman Extraction of wisdom tooth D shelly Barber Work Phone: H/O: hysterectomy Lani veras Hernia repair Shawn Barber Work Phone: History of hernia repair Luna Wasserman Hysterectomy Shawn Barber Work Phone: Small intestine excision Juan Manuel iel B Barber Work Phone: Plan of Treatment Date Care Activity Detail Author Start: 02-17-2032 Screening for malignant neoplasm of colon [facility] Start: 04-13-2024 Screening for malignant neoplasm of breast Mammogram [facility] Start: 11-19-2023 Echocardiography Echocardiogram [facility] Start: 05-12-2023 End: 05-12-2023 Patient encounter procedure 05/12/2023 2:30 PM EST Office Visit [facility] [address] [place] [address] Rama Kaba, [employer] ROOM SUPERVISOR [address] [place] [address] [facility] Start: 04-29-2023 End: 04-29-2023 Patient encounter procedure 04/29/2023 2:30 PM EST Appointment [facility] [address] [place] [address] [facility] Start: 03-30-2023 End: 03-30-2024 Basic metabolic 2000 panel - Serum or Plasma Basic Metabolic Panel Lab Routine Paroxysmal atrial fibrillation (CMS/HCC) Expected: 03/30/2023 (Approximate), Expires: 03/30/2024 [facility] Service Area Work Phone: Comment on above: Expected: 03/30/2023 (Approximate), Expi res: 03/30/2024 Start: 03-30-2023 End: 03-30-2024 CBC panel - Blood by Automated count CBC Lab Routine Paroxysmal atrial fibrillation (CMS/HCC) Anticoagulated Expected: 03/30/2023 (Approximate), Expires: 03/30/2024 [facility] Work Phone: Comment on above: Expected: 03/30/2023 (Approximate), Expi res: 03/30/2024 Start: 03-30-2023 End: 03-30-2025 US Heart Transthoracic Transthoracic Echo (TTE) Complete Echocardiography Routine Nonrheumatic aortic valve stenosis Pulmonary hypertension (CMS/HCC) Expected: 03/30/2023 (Approximate), Expires: 03/30/2025 [facility] Work Phone: Comment on above: Expected: 03/30/2023 (Approximate), Expi res: 03/30/2025 Start: 11-23-2022 Blood chemistry [facility] Start: 11-23-2022 [facility] Start: 11-22-2022 Blood chemistry [facility] Start: 11-22-2022 [facility] Start: 11-21-2022 Blood chemistry [facility] Start: 11-21-2022 End: 11-21-2022 [facility] Start: 11-20-2022 Blood chemistry [facility] Start: 11-20-2022 [facility] Start: 11-19-2022 Referral to tourist information officer [facility] Start: 11-19-2022 Blood chemistry [facility] Start: 11-19-2022 End: 11-19-2022 [facility] Start: 11-18-2022 Hospital admission [facility] Start: 11-18-2022 [facility] Start: 05-30-2021 Screening for malignant neoplasm of breast Mammogram [facility] Start: 10-04-2020 Screening for osteoporosis Bone Density Scan [facility] Start: 04-02-2016 Zoster Vaccines (2 of 3) Zoster Vaccines (2 of 3) [facility] Start: 2008 Hepatitis B Vaccines (1 of 3 - Risk 3-dose series) Hepatitis B Vaccines (1 of 3 - Risk 3-dose series) [facility] Start: 1970 DTaP/Tdap/Td Vaccines (1 - Tdap) DTaP/Tdap/Td Vaccines (1 - Tdap) [facility] Start: 12-08-1967 Hepatitis A Vaccines (1 of 2 - Risk 2-dose series) Hepatitis A Vaccines (1 of 2 - Risk 2-dose series) [facility] Start: 12-08-1967 Urine screening for protein Diabetes: Urine Protein Screening [facility] Start: 1966 Hepatitis C screening Hepatitis C Screening [facility] Start: 1958 Diabetic foot examination Diabetes: Foot Exam [facility] Start: 1958 Glaucoma screening Diabetes: Retinopathy Screening [facility] Start: 06-09-1949 COVID-19 Vaccine (#1) COVID-19 Vaccine (#1) [facility] Start: 1948 Creatinine measurement Creatinine Level [facility] Start: 1948 Hemoglobin A1c measurement Diabetes: Hemoglobin A1C [facility] Start: 1948 Lipid panel Lipid Panel [facility] Start: 1948 Medicare Annual Wellness Visit Medicare Annual Wellness Visit (AWV) [facility] Start: 1948 Potassium measurement Potassium Level [facility] Start: 1948 Screening for malignant neoplasm of colon [facility] Patient referral [facility] Work Phone: End: 04-29-2023 [facility] Service Area Work Phone: Comment on above: Once for 1 Occurrences starting 04/29/20 until 04/29/2023 Immunizations Immunization Date Immunization Notes Care Provider Rajan lundberg 03-01-2023 influenza virus vaccine, unspecified formulation Jacqui Michael [facility] 02-05-2022 influenza virus vaccine, unspecified formulation Jacqui Lue [facility] 01-31-2022 influenza virus vaccine, unspecified formulation Jacqui Michael [facility] 01-31-2022 influenza, high dose seasonal, preservative-free Shawn Barber Work Phone: [facility] 250 DO Work Phone: 03-05-2021 influenza virus vaccine, unspecified formulation Jacqui Michael [facility] 03-05-2021 influenza, high dose seasonal, preservative-free Shawn Barber Work Phone: [facility] 250 DO Work Phone: 03-22-2020 influenza virus vaccine, unspecified formulation Jacqui Lue [facility] 03-15-2020 influenza virus vaccine, unspecified formulation Jacqui Lue [facility] 03-15-2020 influenza, high dose seasonal, preservative-free Shawn B Barber Work Phone: [facility] [address] DO Work Phone: 02-09-2019 influenza virus vaccine, unspecified formulation Jacqui Lue [facility] 02-09-2019 influenza, high dose seasonal, preservative-free Shawn B Barber Work Phone: [facility] 250 DO Work Phone: 02-17-2018 influenza virus vaccine, unspecified formulation Jacqui Lue [facility] 02-17-2018 influenza, high dose seasonal, preservative-free Shawn B Barber Work Phone: [facility] [address] DO Work Phone: 01-25-2017 influenza virus vaccine, unspecified formulation Jacqui Lue [facility] 01-25-2017 influenza, high dose seasonal, preservative-free Shawn B Barber Work Phone: [facility] [address] DO Work Phone: 02-19-2016 influenza virus vaccine, unspecified formulation Jacqui Lue [facility] 02-19-2016 influenza, injectabl e, quadrivalent, contains preservative Shawn B Barber Work Phone: [facility] DO Work Phone: 02-06-2016 zoster vaccine, live Jacqui L ue [facility] 02-03-2016 pneumococcal polysaccharide vaccine, 23 valent Jacqui Lue [facility] 04-12-2015 pneumococcal conjuga te vaccine, 13 valent Jacqui Lue [facility] NEGATED: Highlighted row has not occurred!12-31-2021 influenza virus vaccine, unspecified formulation Lani Howardmetz [facility] [facility] Payers Date Payer Category Payer Medicaid MEDICAID MEDICAI D [id number] 2021-Present [address] [place] [address] [id number] 2014 Unknown [id number] 2011 Medicare MEDICARE MEDICAR E PART A AND B [id number] 2011-Present [address] [place] [address] [id number] 1959 Medicaid [id number] 2.16.840.1.754266.19 1959 Medicare [id number] 2.16.840.1.255479.19 1959 Self-pay 1959 Unknown [id number] 2.16.8 40.1.784207.19 1948 Unknown [id number] 2.16.840.1.409823.3.579.2.593 1948 Unknown [id number] 2.16.840.1.798668.3.579.2.593 1948 Unknown [id number] 2.16.840.1.610456.3.579.2.593 1948 Unknown [id number] 2.16.840.1.581287.3.579.2.593 1948 Unknown [id number] 2.16.840.1.212363.3.579.2.593 1948 Unknown [id number] 2.16.840.1.233373.3.579.2.593 1948 Unknown [id number] 2..840.1.229373.3.579.2.593 1948 Unknown [id number] 2.840.1.255455.3.579.2.593 1948 Unknown [id number] 2.840.1.772893.3.579.2.593 1948 Unknown [id number] 2.840.1.320088.3.579.2.593 1948 Unknown [id number] 2.840.1.011351.3.579.2.593 1948 Unknown [id number] 2.840.1.237959.3.579.2.593 1948 Unknown [id number] .840.1.922812.3.579.2.593 1948 Unknown [id number] 2.840.1.031252.3.579.2.593 1948 Unknown [id number] 2..840.1.162204.3.579.2.593 1948 Unknown [id number] 2.16.840.1.598639.3.579.2.593 1948 Unknown [id number] 2.840.1.260447.3.579.2.593 1948 Unknown [id number] 2.16.840.1.687967.3.579.2.593 1948 Unknown [id number] 2.16.840.1.889288.3.579.2.356 1948 Unknown [id number] 2.16.840.1.609672.3.579.2.356 1948 Unknown [id number] 2.16840.1.939593.3.579.2.356 1948 Unknown [id number] 2.16840.1.349002.3.579.2.356 1948 Unknown [id number] 2.840.1.596371.3.579.2.356 1948 Unknown [id number] 2.840.1.373082.3.579.2.1259 1948 Unknown [id number] 2.840.1.451041.3.579.2.72 1948 Unknown [id number] 2.840.1.805372.3.579.2.727 1948 Unknown [id number] 2.840.1.831368.3.579.2.727 1948 Unknown [id number] 2.840.1.187352.3.579.2.727 1948 Unknown [id number] 2.840.1.740049.3.579.2.727 1948 Unknown [id number] 2.16840.1.937759.3.579.2.727 1948 Unknown [id number] 2.16840.1.605642.3.579.2.727 1948 Unknown [id number] 2.16.840.1.593696.3.579.2.727 1948 Unknown [id number] 2.16840.1.575604.3.579.2.727 1948 Unknown [id number] 2.16.840.1.159460.3.579.2.727 1948 Unknown [id number] 2.16.840.1.214962.3.579.2.727 Medicare [id number] Unknown [id number] 2.16.840.1.587299.3.579.2.531 Unknown Unknown [id number] Social History Date Type Detail Facility Start: 12-28-2022 End: 03-30-2023 Sex Assigned At [employer] Other Start: 12-31-2021 Tobacco smoking status Light t obacco smoker (finding) [facility] Tobacco [facility] status Never [facility] Start: 11-18-2022 End: 11-19-2022 Tobacco smoking status NHIS Smoker (finding) [facility] Start: 1950 Sex Assigned At Female [facility] Start: 12-28-2022 End: 03-30-2023 Caffeine use Caffeine use [facility] Comment on above: 2 cups coffee daily most of the time; 1/2 ppd; Start: 12-29-2022 End: 04-28-2023 Tobacco smoking status Heavy tobacco smoker (finding) [facility] Start: 03-30-2023 Tobacco smoking stat us NHIS Smokes tobacco daily [facility] Start: 03-30-2023 Tobacco use and exposure Smokeless tobacco non-user [facility] Work Phone: Start: 03-30-2023 Alcohol intake Lifetime non-d jeffy (finding) [facility] Work Phone: Start: 03-30-2023 Gender identity Identifies as female gender (finding) [facility] Work Phone: Start: 03-30-2023 Sexual orientation Heterosexual (yohan dior) [facility] Work Phone: Start: 03-20-2023 End: 04-29-2023 Exposure to SARS-CoV-2 (event) Not sure [facility] Goals Date Patient Goal Desired Activity /State Functional Status Date Assessment Result Facility 04-28-2023 Functional Status N/A [facility] 02-12-2023 Functional Status N/A [facility] 02-03-2023 Functional Status N/A [facility] 12-29-2022 Functional Status N/A [facility] 11-21-2022 Functional status Patient at Baseline [facility] Work Phone: 07-29-2022 Functional Status N/A [facility] 06-10-2022 Functional Status N/A [facility] 02-16-2022 Functional Status N/A [facility] 12-31-2021 Functional Status N/A [facility] Mental Status Date Assessment Result Facility 11-21-2022 Cognitive function Cognitive Sta tus Patient at Baseline [facility] Work Phone: Clinical Notes 04-02-2021 to 04-28-2023 Assessment & Plan Note - NATALIE Gonsalez - 04/03/2023 12:04 PM ESTAssessment & Plan Note - NATALIE Gonsalez - 04/03/2023 12:04 PM ESTPatient Instructions Note Date & Type Note Facility 04-28-2023 Hospital Discharg e instructions Patient Education 04/28/2023 10:24:50 Urinary Tract Infection, Adult, Uatg-ld-Yioq Urinary Tract Infection, Adult A urinary tract infection (UTI) is an infection of any part of the urinary tract. The urinary tract includes: The kidneys. The ureters. The bladder. The urethra. These organs make, store, and get rid of pee (urine) in the body. What are the causes? This infection is caused by germs (bacteria) in your genital area. These germs grow and cause swelling (inflammation) of your urinary tract. What increases the risk? The following factors may make you more likely to develop this condition: Using a small, thin tube (catheter) to drain pee. Not being able to control when you pee or poop (incontinence). Being female. If you are female, these things can increase the risk: ?Using these methods to prevent : ?A medicine that kills sperm (spermicide). ?A device that blocks sperm (diaphragm). ?Having low levels of a female hormone (estrogen). ?Being . You are more likely to develop this condition if: You have genes that add to your risk. You are sexually active. You take antibiotic medicines. You have trouble peeing because of: ?A prostate that is bigger than normal, if you are male. ?A blockage in the part of your body that drains pee from the bladder. ?A kidney stone. ?A nerve condition that affects your bladder. ?Not getting enough to drink. ?Not peeing often enough. You have other conditions, such as: ?Diabetes. ?A weak disease-fighting system (immune system). ?Sickle cell disease. ?Gout. ?Injury of the spine. What are the signs or symptoms? Symptoms of this condition include: Needing to pee right away. Peeing small amounts often. Pain or burning when peeing. Blood in the pee. Pee that smells bad or not like normal. Trouble peeing. Pee that is cloudy. Fluid coming from the vagina, if you are female. Pain in the belly or lower back. Other symptoms include: Vomiting. Not feeling hungry. Feeling mixed up (confused). This may be the first symptom in older adults. Being tired and grouchy (irritable). A fever. Watery poop (diarrhea). How is this treated? Taking antibiotic medicine. Taking other medicines. Drinking enough water. In some cases, you may need to see a specialist. Follow these instructions at home: Medicines Take fgig-hgr-gpowczp and prescription medicines only as told by your doctor. If you were prescribed an antibiotic medicine, take it as told by your doctor. Do not stop taking it even if you start to feel better. General instructions Make sure you: ?Pee until your bladder is empty. ?Do not hold pee for a long time. ?Empty your bladder after sex. ?Wipe from front to back after peeing or pooping if you are a female. Use each tissue one time when you wipe. Drink enough fluid to keep your pee pale yellow. Keep all follow-up visits. Contact a doctor if: You do not get better after 1 2 days. Your symptoms go away and then come back. Get help right away if: You have very bad back pain. You have very bad pain in your lower belly. You have a fever. You have chills. You feeling like you will vomit or you vomit. Summary A urinary tract infection (UTI) is an infection of any part of the urinary tract. This condition is caused by germs in your genital area. There are many risk factors for a UTI. Treatment includes antibiotic medicines. Drink enough fluid to keep your pee pale yellow. This information is not intended to replace advice given to you by your health care provider. Make sure you discuss any questions you have with your health care provider. Document Revised: 11/29/2020 Document Reviewed: 11/29/2020 [email or web address] Patient Education 2022 [employer]. Follow Up Care 02/22/2023 10:37:46 With:Alec XIE, CARLY [place], [facility] Address: When:Within 3 Month(s) [facility] 04-03-2023 Evaluation + Plan note Associated Problem(s): Current smoker Continued every day tobacco use. Have reviewed the negative cardiovascular impact of nicotine. Continues to decline pharmacological assistance. [facility] Work Phone: 04-03-2023 Evaluation + Plan note Associated Problem(s): Stage 3 chronic kidney disease (CMS/HCC) Report establish follow-up with Dr. Guerra Last creatinine in our system was 4.2 [facility] Work Phone: 04-03-2023 Miscellaneous Notes Associated Problem(s): Current smoker Continued every day tobacco use. Have reviewed the negative cardiovascular impact of nicotine. Continues to decline pharmacological assistance. Associated Problem(s): Stage 3 chronic kidney disease (CMS/HCC) Report establish follow-up with Dr. Guerra Last creatinine in our system was 4.2 Associated Problem(s): Diabetes mellitus type II, non insulin dependent (CMS/HCC) Maintained on statin No LONI/ARB due to CKD Associated Problem(s): Anticoagulated CHADS VASc 4 chronically anticoagulated full dose Eliquis age 72, weight 160 pounds. Associated Problem(s): Essential hypertension Optimal in office Associated Problem(s): Hyperlipidemia Low intensity statin Associated Problem(s): Abnormal echocardiogram October 2022 TTE LVEF 60 to 65% LA moderate/severe Aortic stenosis peak 46, mean 26 RVSP 84 mmHg (denies prior PE, longstanding tobacco abuse, chronic hypoxia and COPD) RV function and size were reportedly normal Associated Problem(s): A-fib (CMS/HCC) Daughter believes this was diagnosed during one of the hospitalizations prior to being under the care of of an [facility]. Regular rate and rhythm on exam Associated Problem(s): Aortic stenosis October 2022 TTE Aortic Stenosis p46;m26 documented in this encounter [facility] Work Phone: 04-03-2023 Evaluation + Plan note Associated Problem(s): Diabetes mellitus type II, non insulin dependent ([facility]/HCC) Maintained on statin No LONI/ARB due to CKD [facility] Work Phone: 04-03-2023 Evaluation + Plan note Associated Problem(s): Anticoagulated CHADS VASc 4 chronically anticoagulated full dose Eliquis age 72, weight 160 pounds. [facility] Work Phone: 04-03-2023 Evaluation + Plan note Associated Problem(s): Essential hypertension Optimal in office [facility] Work Phone: 04-03-2023 Evaluation + Plan note Associated Problem(s): Hyperlipidemia Low intensity statin [facility] Work Phone: 04-03-2023 Evaluation + Plan note Associated Problem(s): Abnormal echocardiogram October 2022 TTE LVEF 60 to 65% LA moderate/severe Aortic stenosis peak 46, mean 26 RVSP 84 mmHg (denies prior PE, longstanding tobacco abuse, chronic hypoxia and COPD) RV function and size were reportedly normal [facility] Work Phone: 04-03-2023 Evaluation + Plan note Associated Problem(s): A-fib (CMS/HCC) Daughter believes this was diagnosed during one of the hospitalizations prior to being under the care of of an [facility]. Regular rate and rhythm on exam [facility] Work Phone: 04-03-2023 Evaluation + Plan note Associated Problem(s): Aortic stenosis October 2022 TTE Aortic Stenosis p46;m26 [facility] Work Phone: 03-30-2023 History of Presen t illness Narrative Chief Complaint So far so good Reason for Visit Routine 4-month follow-up Patient presents to the office today for outpatient follow-up for aortic stenosis, PAF, primary prevention. Last evaluated in clinic by myself December 2022. Presents today in wheelchair, utilizing oxygen. Accompanied by child Both patient and daughter are extremely difficult historians, following December visit I requested cardiology records from [facility] and those were not obtained. She presents today reporting 2 hospitalizations in March due to an seizure activity . First hospitalization she was noted to be anemic, received blood transfusion. Her hemoglobin was 7.1. She was reportedly treated with a Lasix drip. It episode of C. difficile colitis. They report an additional admission due to seizure and hypokalemia. They deny cardiology follow-up during the hospitalization. She has now been home for approximately 5 days. Despite anemia, DOAC was not interrupted. The daughter reports that when things and settle down they would do a GI work-up. Last creatinine is 4.2 and they report follow-up scheduled with nephrology. History of Present Illness Extremely pleasant, both the patient and daughter are really unclear of her prior cardiovascular history. They are of limited records for recent hospitalization. She currently has been home for approximately 5 days. Activity level is limited due to body habitus, chronic O2 usage and COPD. She sleeps in a recliner for comfort, denies PND. She is minimally ambulatory at home with no complaints of orthostatic hypotension. There is no dizziness or lightheadedness. No chest pain. Initial outpatient follow-up in December they reported paroxysmal atrial fibrillation diagnosed early 2021. Prior stress testing but no cardiac catheterization. Has aortic stenosis that is being monitored . Patient reports that overall has no complaint(s) of chest pain, chest pressure/discomfort, exertional chest pressure/discomfort, irregular heart beat, and palpitations Review of Systems Constitutional: Positive for malaise/fatigue. Cardiovascular: Negative for chest pain, dyspnea on exertion, irregular heartbeat, leg swelling, near-syncope, orthopnea, palpitations, paroxysmal nocturnal dyspnea and syncope. Respiratory: Positive for shortness of breath. Visit Vitals BP 128/60 (BP Location: Right arm, Patient Position: Sitting) Pulse 70 Ht 1.524 m (5') Wt 72.6 kg (160 lb) BMI 31.25 kg/m Smoking Status Every Day BSA 1.75 m Physical Exam Vitals and nursing note reviewed. Constitutional: Appearance: She is overweight. She is ill-appearing. HENT: Head: Normocephalic. Cardiovascular: Rate and Rhythm: Normal rate and regular rhythm. Heart sounds: Murmur heard. Systolic murmur is present with a grade of 3/6. Pulmonary: Effort: Pulmonary effort is normal. Breath sounds: Examination of the right-lower field reveals decreased breath sounds. Examination of the left-lower field reveals decreased breath sounds. Decreased breath sounds present. Abdominal: Palpations: Abdomen is soft. Musculoskeletal: Right lower leg: No edema. Left lower leg: No edema. Skin: General: Skin is warm and dry. Neurological: General: No focal deficit present. Mental Status: She is alert. Psychiatric: Mood and Affect: Mood normal. Behavior: Behavior normal. No Known Allergies Current Outpatient Medications Medication Instructions albuterol 2.5 mg, nebulization ALPRAZolam XR (XANAX XR) 1 mg, oral, Every morning, Do not crush, chew, or split. apixaban (ELIQUIS) 5 mg, oral, 2 times daily atorvastatin (LIPITOR) 20 mg, oral, Daily brexpiprazole (REXULTI) 1 mg, oral, Daily bumetanide (BUMEX) 2 mg, oral, Daily calcium carbonate (Tums) 200 mg calcium chewable tablet 1 tablet, oral, Daily ciprofloxacin (CIPRO) 500 mg, oral, Every 12 hours cyclobenzaprine (FLEXERIL) 10 mg, oral, 3 times daily PRN dapagliflozin propanediol (FARXIGA) 10 mg, oral FLUoxetine (PROZAC) 40 mg, oral, Daily fluticasone propion-salmeteroL (Advair Diskus) 250-50 mcg/dose diskus inhaler 1 puff, inhalation, 2 times daily RT, Rinse mouth with water after use to reduce aftertaste and incidence of candidiasis. Do not swallow. HYDROcodone-acetaminophen ([place]) 5-325 mg tablet 1 tablet, oral levETIRAcetam (KEPPRA) 500 mg, oral, 2 times daily lisinopril 20 mg, oral, Daily magnesium oxide (MAG-OX) 400 mg, Daily metOLazone (ZAROXOLYN) 2.5 mg, oral, Daily metoprolol tartrate (LOPRESSOR) 50 mg, oral ondansetron (Zofran) 4 mg tablet 1 tablet, oral, Every 8 hours PRN oxygen (O2) gas therapy 1 each, inhalation, Continuous promethazine (PHENERGAN) 25 mg, oral, Every 6 hours PRN tiZANidine (ZANAFLEX) 4 mg, oral, 3 times daily Trulicity 0.75 mg, subcutaneous, Weekly Assessment: Aortic stenosis October 2022 TTE Aortic Stenosis p46;m26 A-fib (CMS/[facility]) Daughter believes this was diagnosed during one of the hospitalizations prior to being under the care of of an NO. Regular rate and rhythm on exam Abnormal echocardiogram October 2022 TTE LVEF 60 to 65% LA moderate/severe Aortic stenosis peak 46, mean 26 RVSP 84 mmHg (denies prior PE, longstanding tobacco abuse, chronic hypoxia and COPD) RV function and size were reportedly normal Hyperlipidemia Low intensity statin Essential hypertension Optimal in office Anticoagulated CHADS VASc 4 chronically anticoagulated full dose Eliquis age 72, weight 160 pounds. Diabetes mellitus type II, non insulin dependent ([facility]) Maintained on statin No LONI/ARB due to CKD Stage 3 chronic kidney disease ([facility]) Report establish follow-up with Dr. Guerra Last creatinine in our system was 4.2 Current smoker Continued every day tobacco use. Have reviewed the negative cardiovascular impact of nicotine. Continues to decline pharmacological assistance. Plan: Obtain old records Through informed decision making process incorporating patients unique circumstances, the following treatment plan will be initiated: 1. Prescription drug management of cardiovascular medication for efficacy, adherence to treatment, side effect assessment and polypharmacy. Current treatment clinically warranted and to continue without modifications. 2. Labs (CBC, CHEM6) 3. Echo (moderate aortic stenosis) 4. Return for follow-up; in the interim, contact the office if new symptoms arise. 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 Voice recognition software was utilized to prepare this document. documented in this encounter [facility] Work Phone: 03-30-2023 Instructions NATALIE Gonsalez - 03/30/2023 2:00 PM EST Please bring all medicines, vitamins, and herbal supplements with you when you come to the office. Prescriptions will not be filled unless you are compliant with your follow up appointments or have a follow up appointment scheduled as per instruction of your physician. Refills should be requested at the time of your visit. PLAN: Through informed decision making process incorporating patients unique circumstances, the following treatment plan will be initiated: 1. Prescription drug management of cardiovascular medication for efficacy, adherence to treatment, side effect assessment and polypharmacy. Current treatment clinically warranted and to continue without modifications. 2. Labs (CBC, CHEM6) 3. Echo (moderate aortic stenosis) 4. Return for follow-up; in the interim, contact the office if new symptoms arise. 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 Voiding after the procedure: there may be some pain, burning, urgency, frequency and blood tinged urine following the procedure. These symptoms usually resolve within 2-5 days. Drink the amount of fluid it takes to keep the urine pink to yellow or clear in color. Drinking enough water and fluids will help to ease any discomfort after your procedure. ? If you are having problems that seem out of the ordinary, please call. ? If unable to contact your physician and you feel it is an emergency, go to the nearest emergency room or call 911 ? Diet ? you may resume your normal diet. ? Activity ? you may resume your normal activities ? Call if you have a fever over 100 degrees. [facility] 02-22-2023 Hospital Discharg e instructions Patient Education 02/22/2023 10:33:13 EU - Cystoscopy Discharge Instructions (CUSTOM) Cystoscopy Voiding after the procedure: there may be some pain, burning, urgency, frequency and blood tinged urine following the procedure. These symptoms usually resolve within 2-5 days. Drink the amount of fluid it takes to keep the urine pink to yellow or clear in color. Drinking enough water and fluids will help to ease any discomfort after your procedure. If you are having problems that seem out of the ordinary, please call. If unable to contact your physician and you feel it is an emergency, go to the nearest emergency room or call 911 Diet you may resume your normal diet. Activity you may resume your normal activities Call if you have a fever over 100 degrees. Follow Up Care 02/03/2023 10:05:26 With:Jacqui Michael Address: [address] [place] [address] [phone] Business (1) [facility] [place], [address] [address] [phone] Business (1) When: Unknown Comments:Office to schedule follow up in 1 to 2 months [facility] 02-03-2023 Hospital Discharg e instructions Patient Education 02/03/2023 10:01:15 Urinary Tract Infection, Adult, Zkah-gd-Vrfo Urinary Tract Infection, Adult A urinary tract infection (UTI) is an infection of any part of the urinary tract. The urinary tract includes: The kidneys. The ureters. The bladder. The urethra. These organs make, store, and get rid of pee (urine) in the body. What are the causes? This infection is caused by germs (bacteria) in your genital area. These germs grow and cause swelling (inflammation) of your urinary tract. What increases the risk? The following factors may make you more likely to develop this condition: Using a small, thin tube (catheter) to drain pee. Not being able to control when you pee or poop (incontinence). Being female. If you are female, these things can increase the risk: ?Using these methods to prevent : ?A medicine that kills sperm (spermicide). ?A device that blocks sperm (diaphragm). ?Having low levels of a female hormone (estrogen). ?Being . You are more likely to develop this condition if: You have genes that add to your risk. You are sexually active. You take antibiotic medicines. You have trouble peeing because of: ?A prostate that is bigger than normal, if you are male. ?A blockage in the part of your body that drains pee from the bladder. ?A kidney stone. ?A nerve condition that affects your bladder. ?Not getting enough to drink. ?Not peeing often enough. You have other conditions, such as: ?Diabetes. ?A weak disease-fighting system (immune system). ?Sickle cell disease. ?Gout. ?Injury of the spine. What are the signs or symptoms? Symptoms of this condition include: Needing to pee right away. Peeing small amounts often. Pain or burning when peeing. Blood in the pee. Pee that smells bad or not like normal. Trouble peeing. Pee that is cloudy. Fluid coming from the vagina, if you are female. Pain in the belly or lower back. Other symptoms include: Vomiting. Not feeling hungry. Feeling mixed up (confused). This may be the first symptom in older adults. Being tired and grouchy (irritable). A fever. Watery poop (diarrhea). How is this treated? Taking antibiotic medicine. Taking other medicines. Drinking enough water. In some cases, you may need to see a specialist. Follow these instructions at home: Medicines Take olpq-gkj-ksvitvo and prescription medicines only as told by your doctor. If you were prescribed an antibiotic medicine, take it as told by your doctor. Do not stop taking it even if you start to feel better. General instructions Make sure you: ?Pee until your bladder is empty. ?Do not hold pee for a long time. ?Empty your bladder after sex. ?Wipe from front to back after peeing or pooping if you are a female. Use each tissue one time when you wipe. Drink enough fluid to keep your pee pale yellow. Keep all follow-up visits. Contact a doctor if: You do not get better after 1 2 days. Your symptoms go away and then come back. Get help right away if: You have very bad back pain. You have very bad pain in your lower belly. You have a fever. You have chills. You feeling like you will vomit or you vomit. Summary A urinary tract infection (UTI) is an infection of any part of the urinary tract. This condition is caused by germs in your genital area. There are many risk factors for a UTI. Treatment includes antibiotic medicines. Drink enough fluid to keep your pee pale yellow. This information is not intended to replace advice given to you by your health care provider. Make sure you discuss any questions you have with your health care provider. Document Revised: 11/29/2020 Document Reviewed: 11/29/2020 [email or web address] Patient Education 2022 [employer]. Follow Up Care 07/29/2022 09:55:50 With:Alec XIE, CARLY Grove, URO Address: When: Unknown Comments:Sched cysto [facility] 12-29-2022 Hospital Discharg e instructions Patient Education 12/29/2022 15:03:31 Urinary Tract Infection, Adult Urinary Tract Infection, Adult A urinary tract infection (UTI) is an infection of any part of the urinary tract. The urinary tract includes the kidneys, ureters, bladder, and urethra. These organs make, store, and get rid of urine in the body. An upper UTI affects the ureters and kidneys. A lower UTI affects the bladder and urethra. What are the causes? Most urinary tract infections are caused by bacteria in your genital area around your urethra, where urine leaves your body. These bacteria grow and cause inflammation of your urinary tract. What increases the risk? You are more likely to develop this condition if: You have a urinary catheter that stays in place. You are not able to control when you urinate or have a bowel movement (incontinence). You are female and you: ?Use a spermicide or diaphragm for control. ?Have low estrogen levels. ?Are . You have certain genes that increase your risk. You are sexually active. You take antibiotic medicines. You have a condition that causes your flow of urine to slow down, such as: ?An enlarged prostate, if you are male. ?Blockage in your urethra. ?A kidney stone. ?A nerve condition that affects your bladder control (neurogenic bladder). ?Not getting enough to drink, or not urinating often. You have certain medical conditions, such as: ?Diabetes. ?A weak disease-fighting system (immunesystem). ?Sickle cell disease. ?Gout. ?Spinal cord injury. What are the signs or symptoms? Symptoms of this condition include: Needing to urinate right away (urgency). Frequent urination. This may include small amounts of urine each time you urinate. Pain or burning with urination. Blood in the urine. Urine that smells bad or unusual. Trouble urinating. Cloudy urine. Vaginal discharge, if you are female. Pain in the abdomen or the lower back. You may also have: Vomiting or a decreased appetite. Confusion. Irritability or tiredness. A fever or chills. Diarrhea. The first symptom in older adults may be confusion. In some cases, they may not have any symptoms until the infection has worsened. How is this diagnosed? This condition is diagnosed based on your medical history and a physical exam. You may also have other tests, including: Urine tests. Blood tests. Tests for STIs (sexually transmitted infections). If you have had more than one UTI, a cystoscopy or imaging studies may be done to determine the cause of the infections. How is this treated? Treatment for this condition includes: Antibiotic medicine. Ucdo-oxe-mnkzizx medicines to treat discomfort. Drinking enough water to stay hydrated. If you have frequent infections or have other conditions such as a kidney stone, you may need to see a health care provider who specializes in the urinary tract (urologist). In rare cases, urinary tract infections can cause sepsis. Sepsis is a life-threatening condition that occurs when the body responds to an infection. Sepsis is treated in the hospital with IV antibiotics, fluids, and other medicines. Follow these instructions at home: Medicines Take efkl-xya-zbaotjk and prescription medicines only as told by your health care provider. If you were prescribed an antibiotic medicine, take it as told by your health care provider. Do not stop using the antibiotic even if you start to feel better. General instructions Make sure you: ?Empty your bladder often and completely. Do not hold urine for long periods of time. ?Empty your bladder after sex. ?Wipe from front to back after urinating or having a bowel movement if you are female. Use each tissue only one time when you wipe. Drink enough fluid to keep your urine pale yellow. Keep all follow-up visits. This is important. Contact a health care provider if: Your symptoms do not get better after 1 2 days. Your symptoms go away and then return. Get help right away if: You have severe pain in your back or your lower abdomen. You have a fever or chills. You have nausea or vomiting. Summary A urinary tract infection (UTI) is an infection of any part of the urinary tract, which includes the kidneys, ureters, bladder, and urethra. Most urinary tract infections are caused by bacteria in your genital area. Treatment for this condition often includes antibiotic medicines. If you were prescribed an antibiotic medicine, take it as told by your health care provider. Do not stop using the antibiotic even if you start to feel better. Keep all follow-up visits. This is important. This information is not intended to replace advice given to you by your health care provider. Make sure you discuss any questions you have with your health care provider. Document Revised: 11/29/2020 Document Reviewed: 11/29/2020 [email or web address] Patient Education 2022 [employer]. Follow Up Care 12/23/2022 14:08:39 With:Alec XIE, CARLY [place], URO Address: When: Unknown [facility] 11-21-2022 Progress note Note Date/Time November 21, 2022 11:31am [facility] [address] [place] [address] Cardiology Progress Note Signed Patient: Martin Hagen MR#: [id number] : 1950 Acct:[id number] Age/Sex: 71 / F Adm Date: 3 Loc: 4 Room: [address] [place] [address] Type: ADM IN Attending Dr: Gina Poole DO Copies to: ~ Date of Service: 11/21/2022 Subjective Principal diagnosis: Acute diastolic CHF Interval history: Patient is much improved, laying flat in bed with no dyspnea. Patient wishes togo home. She has no more lower extremity edema. Patient can be discharged hometoday with close follow-up with Dr. Arriaga and his nurse practitioner in 2 weeks Exam Physical Exam Vital Signs: Temp Pulse Resp BP Pulse Ox O2 Del Method O2 Flow Rate 97.9 F 70 20 133/77 93 L Nasal Cannula 4 11/21/22 08:30 11/21/22 08:30 11/21/22 08:30 11/21/22 08:30 11/21/22 08:30 11/21/22 08:30 11/21/22 08:30 Const General: healthy appearing, comfortable and no acute distress Nutritional Appearance: obese Orientation: alert, awake and oriented x3 HEENT Head: normal to inspection, normocephalic and atraumatic Ears: hearing grossly normal bilaterally Nose: external nose normal Eyes General: appearance normal, both eyes and all related structures Conjunctivae: conjunctivae normal Pupils: PERRL Neck Neck: normal visual inspection, trachea midline and supple Neck mass: No Thyroid: thyroid normal Carotids: normal carotid upstroke Resp Effort & Inspection: normal respiratory effort Auscultation: clear to auscultation bilaterally Cardio Jugular venous pressure: no JVD Palpation: normal PMI Rate: regular rate Rhythm: regular rhythm Heart Sounds: murmur (2/6 systolic ejection murmur at the right sternal border) GI Inspection: normal to inspection Palpation: soft and no hepatosplenomegaly Auscultation: normal bowel sounds Extrem General: no clubbing, cyanosis or edema Objective Labs 11/21/22 04:47 11/21/22 04:47 Labs: Laboratory Results - last 24 hr 11/20/22 11/20/22 11/21/22 12:08 17:08 04:47 Corrected WBC 5.7 Uncorrected WBC Count 5.7 RBC 2.75 L Hgb 8.0 L Hct 24.7 L MCV 89.8 MCH 29.0 MCHC 32.3 RDW 15.2 Plt Count 132 L MPV 7.8 Neut % (Auto) 70.8 Lymph % (Auto) 18.9 [place] % (Auto) 7.3 Eos % (Auto) 2.7 Baso % (Auto) 0.3 Nucleat RBC Rel Count 0.1 Neut # (Auto) 4.1 Lymph # (Auto) 1.1 [place] # (Auto) 0.4 Eos # (Auto) 0.2 Baso # (Auto) 0.0 PHA Creatinine Clear Sodium Potassium Chloride Carbon Dioxide Anion Gap BUN Creatinine Est GFR (CKD-EPI) Glucose POC Glucose 123 135 Calcium 11/21/22 11/21/22 04:47 08:37 Corrected WBC Uncorrected WBC Count RBC Hgb Hct MCV MCH MCHC RDW Plt Count MPV Neut % (Auto) Lymph % (Auto) [place] % (Auto) Eos % (Auto) Baso % (Auto) Nucleat RBC Rel Count Neut # (Auto) Lymph # (Auto) [place] # (Auto) Eos # (Auto) Baso # (Auto) PHA Creatinine Clear 29.80 Sodium 141 Potassium 4.6 Chloride 92 L Carbon Dioxide > 45.0 H Anion Gap TNP BUN 35 H Creatinine 1.54 H Est GFR (CKD-EPI) 35.431 Glucose 95 POC Glucose 118 Calcium 9.4 A&P - Cardiology (1) Aortic stenosis: Assessment/Problem Details: Moderate?severe in intensity, need follow-up to decide on timing for intervention down the road with annual echocardiograms. Code(s): I35.0 - Nonrheumatic aortic (valve) stenosis Status: Acute Plan: Follow-up as an outpatient with echocardiograms. 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 Code(s): I27.20 - Pulmonary hypertension, unspecified Status: Acute Plan: Aggressive diuresis with metolazone and furosemide with close monitoring of kidney function and electrolytes (3) Acute diastolic CHF (congestive heart failure), NYHA class 3: Assessment/Problem Details: Mostly driven by significant degree of aortic stenosis and hypertension. Code(s): I50.31 - Acute diastolic (congestive) heart failure Status: Acute Plan: Maintaining adequate blood pressure control and aggressive diuresis Documented By: Colin Carrillo MD, [facility] 3 1127 Signed By: <Electronically signed by MD PLACIDO Carrillo> 11/21/22 1131 [facility] Work Phone: 1([phone]) 329-692707-21-2023 Progress note Author Gina Poole [facility] November 20, 2022 2:12pm Note Date/Time November 20, 2022 2:12 pm [facility] [address] [place] [address] Hospitalist Progress Note Signed Patient: Martin Hagen MR#: [id number] : 1950 Acct:[id number] Age/Sex: 71 / F Adm Date: 3 Loc: Room: [address] [place] [address] Type: ADM IN Attending Dr: Gina Poole DO Copies to: ~ Date of Service: 11/20/2022 Subjective Subjective Narrative: Patient was seen and examined at side. No acute events overnight. No new complaints. Breathing mildly improved Physical Examination: GENERAL APPEARANCE: Alert, up in bed AAOx3 HEENT: NCAT, MMM NECK: Neck soft w/o masses, no JVD CARDIAC: Normal S1 and S2. No S3, S4 or murmurs. Holosystolic murmur noted diffusely LUNGS: Clear to auscultation bilaterally. no wheeze/rhonchi/rales ABDOMEN: Positive bowel sounds. Soft, nontender. No guarding or signs of an acute abdomen MUSCULOSKELETAL: No joint erythema or tenderness. EXTREMITIES: No clubbing, cyanosis or 2+ pitting edema bilateral lower extremities PSYCHIATRIC: Appropriate mood and affect Assessment and plan: 1. Acute exacerbation of congestive heart failure Echocardiogram ejection fraction and severe pulmonary hypertension. we will continue diuresis 2. Severe aortic stenosis Appreciate cardiology consultation. No urgent interventions 3. Contraction alkalosis Continue Lasix but león lower this dosing and instead add acetazolamide to prevent further alkalosis 4. Anemia Ferritin level is elevated and iron level is on the lower side. This is seemingly anemia of chronic inflammation rather than iron deficiency. 5. Acute kidney injury versus chronic kidney disease Unchanged with aggressive diuresis 6. Diabetes mellitus #2 sliding scale Disposition: Patient will need continuous telemetry monitoring, daily labs for electrolyte monitoring while receiving work-up for heart failure and IV diuresisfor fluid overload. She is thus admitted as an inpatient. Exam Physical Exam Vital Signs: Temp Pulse Resp BP Pulse Ox O2 Del Method O2 Flow Rate 97.2 F L 67 18 151/71 H 96 Nasal Cannula 4 11/20/22 11:58 11/20/22 12:30 11/20/22 12:30 11/20/22 11:58 11/20/22 11:58 11/20/22 11:58 11/20/22 11:58 Objective Lab Results 11/20/22 04:48 11/20/22 04:48 Meds Allergies and Active Meds Allergies No Known Allergies Allergy (Verified 11/18/22 16:16) Active Meds: Active Medications Generic Name Dose Route Start Last Admin Trade Name Freq PRN Reason Stop Dose Admin Hydrocodone Bitart/Acetaminophen 1 tab 11/18/22 21:55 11/20/22 08:50 Hydrocodone/Acetaminophen 5-325 Mg Tablet PO 1 tab BID PRN Administration Pain Albuterol 2.5 mg 11/20/22 08:00 11/20/22 12:29 Albuterol Neb 2.5 Mg/3 Ml Vial.Neb INHALATION 11/19/23 14:14 2.5 mg QID.RESP OSCAR Administration Alprazolam 1 mg 11/18/22 22:37 11/20/22 08:54 Alprazolam 0.5 Mg Tablet PO 05/17/23 22:36 1 mg BID PRN Administration Anxiety Apixaban 5 mg 11/19/22 09:00 11/20/22 08:29 Apixaban 5 Mg Tablet PO 11/19/23 08:59 5 mg DAILY OSCAR Administration Brexpiprazole 1 mg 11/18/22 23:00 11/19/22 21:40 Brexpiprazole 1 Mg Tablet PO 11/18/23 22:59 1 mg QHS OSCAR Administration Budesonide/Formoterol Fumarate 2 puff 11/19/22 09:00 11/20/22 08:20 Budesonide/Formoterol 160-4.5 Mcg 60 Puff/6 Gm Hfa.Aer.Ad INHALATION 11/19/23 08:59 2 puff BID OSCAR Administration Calcium Carbonate 1 tab 11/19/22 09:00 11/20/22 08:29 Calcium Carbonate/Vitamin D3 500 Mg/200 Unit Tablet PO 11/19/23 08:59 1 tab BID OSCAR Administration Empagliflozin 10 mg 11/19/22 09:00 11/20/22 08:29 Empagliflozin 10 Mg Tablet PO 11/19/23 08:59 10 mg DAILY OSCAR Administration Fluoxetine HCl 40 mg 11/19/22 09:00 11/20/22 08:28 Fluoxetine 20 Mg Capsule PO 11/19/23 08:59 40 mg DAILY OSCAR Administration Furosemide 60 mg 11/19/22 08:00 11/20/22 08:30 Furosemide 40 Mg/4 Ml Vial IV-PUSH 11/19/23 07:59 60 mg BID@0800,1600 OSCAR Administration Magnesium Sulfate 2 gm in 50 mls @ 25 mls/hr 11/18/22 19:07 Magnesium Sulf 2gm-*Swfi* IV 11/18/23 19:06 DAILY PRN Magnesium < 1.6 Insulin Aspart 0 units 11/19/22 12:00 11/20/22 12:17 Insulin Aspart 300 Units/3 Ml Insuln.Pen SUBCUT 11/19/23 11:59 Not Given TID[facility] Protocol Magnesium Oxide 400 mg 11/19/22 09:00 11/20/22 08:28 Magnesium Oxide 400 Mg Tablet PO 11/19/23 08:59 400 mg BID OSCAR Administration Metolazone 2.5 mg 11/20/22 07:30 11/20/22 08:29 Metolazone 2.5 Mg Tablet PO 11/20/23 07:29 2.5 mg DAILY@0730 OSCAR Administration Metoprolol Tartrate 50 mg 11/19/22 09:00 11/20/22 08:29 Metoprolol Tartrate 50 Mg Tablet PO 11/19/23 08:59 50 mg BID OSCAR Administration Non-Formulary Medication 0.75 mg 11/25/22 09:00 Dulaglutide [Trulicity] SUBCUT 11/25/23 08:59 QWEEK OSCAR Potassium Chloride 40 meq 11/18/22 19:07 Potassium Chloride Er 20 Meq Tab.Er.Prt PO 11/18/23 19:06 DAILY PRN Hypokalemia Sodium Chloride 0 ml 11/18/22 16:15 Sodium Chloride 0.9 % 10 Ml Syringe IV-PUSH 11/18/23 16:14 PRN PRN Flush Tizanidine HCl 4 mg 11/18/22 21:55 Tizanidine 4 Mg Tablet PO 11/18/23 21:54 TID PRN Spasms Documented By: Gina Poole DO 11/20/22 14 08 Signed By: <Electronically signed by Gina Poole, DO> 11/20/22 1419 [facility] Work Phone: 1(530) 548-135807-21-2023 Progress note Author Rey Arriaga [facility] November 20, 2022 10:30am Note Date/Time November 20, 2022 10:3 0am [facility] [address] [place] [address] Cardiology Progress Note Signed Patient: Martin Hagen MR#: [id number] : 1950 Acct:[id number] Age/Sex: 71 / F Adm Date: 3 Loc: Room: [address] [place] [address] Type: ADM IN Attending Dr: Gina Poole DO Copies to: ~ Date of Service: 11/20/2022 Subjective Principal diagnosis: Acute diastolic CHF Interval history: Patient notes some clinical improvement. Still some shortness of breath, though, ambulating from bed to bathroom. We discussed going home and she statesshata does not feel well enough to go home today. Exam Physical Exam Vital Signs: Temp Pulse Resp BP Pulse Ox O2 Del Method O2 Flow Rate 97.6 F 67 18 155/74 H 95 Nasal Cannula 4 11/20/22 08:00 11/20/22 08:19 11/20/22 08:19 11/20/22 08:00 11/20/22 08:00 11/20/22 08:00 11/20/22 08:00 HEENT Head: normal to inspection Ears: hearing grossly normal bilaterally Nose: external nose normal and nares normal Face and sinus: normal facial exam Mouth: oral mucosae normal and tongue normal Eyes Conjunctivae: conjunctivae normal Sclera: sclerae normal Neck Neck: normal visual inspection Carotids: normal carotid upstroke Lymphatic: no lymphadenopathy noted Chest Chest palpation & inspection: normal inspection of the chest Resp Other: Patient still has basilar rales Cardio Rate: regular rate Rhythm: regular rhythm Heart Sounds: murmur systolic III/ GI Inspection: normal to inspection Palpation: soft Skin General: no rashes or lesions noted Neuro General: patient alert, patient awake and patient oriented x3 Cognition: normal cognition Motor: muscle tone normal throughout Sensory Exam: no sensory deficits noted Objective Labs 11/20/22 04:48 11/20/22 04:48 Labs: Laboratory Results - last 24 hr 11/19/22 11/19/22 11/19/22 11:30 16:45 20:09 Corrected WBC Uncorrected WBC Count RBC Hgb Hct MCV MCH MCHC RDW Plt Count MPV Neut % (Auto) Lymph % (Auto) [place] % (Auto) Eos % (Auto) Baso % (Auto) Nucleat RBC Rel Count Neut # (Auto) Lymph # (Auto) [place] # (Auto) Eos # (Auto) Baso # (Auto) PHA Creatinine Clear Sodium Potassium Chloride Carbon Dioxide Anion Gap BUN Creatinine Est GFR (CKD-EPI) Glucose POC Glucose 168 140 POC Glucose Comment Glu2: cleaned meter Calcium Total Creatine Kinase 31 Troponin I High Sens 19.6 H 11/20/22 11/20/22 11/20/22 04:48 04:48 06:58 Corrected WBC 5.4 Uncorrected WBC Count 5.4 RBC 2.77 L Hgb 8.0 L Hct 24.9 L MCV 90.0 MCH 28.9 MCHC 32.1 RDW 15.6 H Plt Count 133 L MPV 7.9 Neut % (Auto) 68.4 Lymph % (Auto) 22.4 [place] % (Auto) 6.7 Eos % (Auto) 2.1 Baso % (Auto) 0.4 Nucleat RBC Rel Count 0.1 Neut # (Auto) 3.7 Lymph # (Auto) 1.2 [place] # (Auto) 0.4 Eos # (Auto) 0.1 Baso # (Auto) 0.0 PHA Creatinine Clear 26.49 Sodium 144 Potassium 4.7 Chloride 99 Carbon Dioxide 42.2 H Anion Gap 7.5 BUN 33 H Creatinine 1.73 H Est GFR (CKD-EPI) 30.815 Glucose 104 H POC Glucose 130 POC Glucose Comment Calcium 8.7 Total Creatine Kinase Troponin I High Sens 11/20/22 08:06 Corrected WBC Uncorrected WBC Count RBC Hgb Hct MCV MCH MCHC RDW Plt Count MPV Neut % (Auto) Lymph % (Auto) [place] % (Auto) Eos % (Auto) Baso % (Auto) Nucleat RBC Rel Count Neut # (Auto) Lymph # (Auto) [place] # (Auto) Eos # (Auto) Baso # (Auto) PHA Creatinine Clear Sodium Potassium Chloride Carbon Dioxide Anion Gap BUN Creatinine Est GFR (CKD-EPI) Glucose POC Glucose 116 POC Glucose Comment Calcium Total Creatine Kinase Troponin I High Sens A&P - Cardiology (1) Aortic stenosis: Assessment/Problem Details: Patient's aortic stenosis is moderate to moderately severe. It requires treatment with poly diuretic regimen. Presently it appears that furosemide in combination with metolazone would be most appropriate. At discharge I would recommend lisinopril 20 mg a day in combination with metolazone 2.5 mg a day. Close follow-up with basic metabolic profile and office visit. Code(s): I35.0 - Nonrheumatic aortic (valve) stenosis Status: Acute (2) Pulmonary hypertension: Assessment/Problem Details: Patient's severe pulmonary hypertension is probably on the basis of volume and fluid overload. With diuresis and establishment of euvolemia we hope that her pulmonary hypertension will improve. Code(s): I27.20 - Pulmonary hypertension, unspecified Status: Acute (3) Acute diastolic CHF (congestive heart failure), NYHA class 3: Assessment/Problem Details: Patient's acute diastolic heart failure is in part complicated by her moderatelysevere aortic stenosis. Code(s): I50.31 - Acute diastolic (congestive) heart failure Status: Acute Plan Continue same regimen. Plan discharge tomorrow on furosemide and metolazone as above Other medicines as before. Patient will require close follow-up. Documented By: Rey Arriaga MD [id number] Signed By: <Electronically signed by MD Rey Arriaga> 11/20/22 1030 [facility] Work Phone: 1(805) 755-154807-20-2023 Consult note Author Rey Arriaga [facility] November 19, 2022 2:59pm Note Date/Time November 19, 2022 2:59 pm [facility] [address] [place] [address] Cardiology Consult Note Signed Patient: Martin Hagen MR#: [id number] : 1950 Acct:[id number] Age/Sex: 71 / F Adm Date: 3 Loc: 4 Room: [address] [place] [address] Type: ADM IN Attending Dr: Gina Poole DO Copies to: MD Gina Arambula II, DO William Patrick McGuinn, MD~ Cardiology HPI History of Present Illness Consult Date: 11/19/22 Reason for Consult: Congestive heart failure HPI: Ms. Hagen is a 71 year old female seen for the above She is an individual who presents with complaints of shortness of breath. She has some chronic underlying shortness of breath which she is attributed to long-term COPD. She is on home oxygen and treated accordingly. She states, though, recently she has been more more short of breath and for this reason she came to the hospital She was found to have normal systolic function but moderately severe aortic stenosis. Also severe pulmonary hypertension. She denies a known history of either. She also denies a history of anginal symptoms. She is a diabetic with hypertension previous smoking history and there is a family history of coronary disease. Despite this she is never had manifestations of coronary disease, per se. I know she is on Eliquis for unknown reasons and this will be discussed later. Review of Systems Review of Systems All other systems reviewed & are negative unless noted below or in HPI Constitutional Constitutional: Reports system reviewed and no additional complaints, except as documented Eyes Eyes: Reports system reviewed and no additional complaints, except as documented ENT Ears, Nose, Mouth, and Throat: Reports system reviewed and no additional complaints, except as documented Cardiovascular Cardiovascular: Reports as per HPI Respiratory Respiratory: Reports system reviewed and no additional complaints, except as documented Gastrointestinal Gastrointestinal: Reports system reviewed and no additional complaints, except as documented Genitourinary Genitourinary: Reports system reviewed and no additional complaints, except as documented Musculoskeletal Musculoskeletal: Reports system reviewed and no additional complaints, except asdocumented Integumentary/Breasts Skin/Breast: Reports system reviewed and no additional complaints, except as documented Neurologic Neurologic: Reports system reviewed and no additional complaints, except as documented Psychiatric Psychiatric: Reports system reviewed and no additional complaints, except as documented Endocrine Endocrine: Reports system reviewed and no additional complaints, except as documented Hematologic/Lymphatic Hematologic/Lymphatic: Reports system reviewed and no additional complaints, except as documented Allergic/Immunologic Allergic/Immunologic: Reports system reviewed and no additional complaints, except as documented PMFSH Vaccinated for COVID-19?: No Medical History (Updated 11/19/22 @ 14:58 by Rey Arriaga MD) Afib Anxiety Arthritis Bronchial asthma Bronchial spasms CHF (congestive heart failure) Chronic low back pain COPD (chronic obstructive pulmonary disease) Depression Diabetes Glaucoma, right eye Hyperlipidemia Macular degeneration of both eyes Sleep apnea treated with continuous positive airway pressure (CPAP) Family History Brother Myocardial infarction Father Myocardial infarction Mother History of open heart surgery COPD (chronic obstructive pulmonary disease) Emphysema of lung Sister Stroke Hypertension Sister Stroke Hypertension Sister Stroke Social History Smoking Status: Current every day smoker Tobacco Type: cigarettes Substance Use Type: None Meds Medications and Allergies Allergies No Known Allergies Allergy (Verified 11/18/22 16:16) Home Medications albuterol sulfate 90 mcg/actuation aerosol inhaler (Ventolin HFA) inhalation 11/18/22 [History] alprazolam 1 mg tablet 1 mg PO BID PRN Anxiety 11/18/22 [History Confirmed 11/18/22] ammonium lactate 12 % lotion topical 11/18/22 [History] apixaban 5 mg tablet (Eliquis) 5 mg PO DAILY 11/18/22 [History Confirmed 11/18/22] brexpiprazole 1 mg tablet (Rexulti) 1 mg PO QHS 11/18/22 [History Confirmed 11/18/22] bumetanide 2 mg tablet 1 mg PO QHS 11/18/22 [History Confirmed 11/18/22] bumetanide 2 mg tablet 2 mg PO QAM 11/18/22 [History Confirmed 11/18/22] calcium carbonate 600 mg-vitamin D3 10 mcg (400 unit) tablet 400 tab PO BID 11/18/22 [History Confirmed 11/18/22] cyclobenzaprine 10 mg tablet 10 mg PO TID 11/18/22 [History Confirmed 11/18/22] dapagliflozin propanediol 10 mg tablet (Farxiga) 10 mg PO DAILY 11/18/22 [History Confirmed 11/18/22] dulaglutide 0.75 mg/0.5 mL subcutaneous pen injector (Trulicity) 0.75 mg subcut QWEEK 11/18/22 [History Confirmed 11/18/22] fluoxetine 40 mg capsule 40 mg PO DAILY 11/18/22 [History Confirmed 11/18/22] fluticasone 250 mcg-salmeterol 50 mcg/dose blistr powdr for inhalation (Advair Diskus) 2 inh inhalation QID 11/18/22 [History Confirmed 11/18/22] hydrocodone 5 mg-acetaminophen 325 mg tablet 1 tab PO 2XD PRN Pain 11/18/22 [History Confirmed 11/18/22] magnesium oxide 400 mg (241.3 mg magnesium) tablet 400 mg PO BID 11/18/22 [History Confirmed 11/18/22] metoprolol tartrate 50 mg tablet 50 mg PO BID 11/18/22 [History Confirmed 11/18/22] tizanidine 4 mg tablet 4 mg PO TID PRN Spasms 11/18/22 [History Confirmed 11/18/22] albuterol sulfate 2.5 mg/3 mL (0.083 %) solution for nebulization 2.5 mg inhalation Q6H 11/19/22 [History Confirmed 11/19/22] Exam Physical Exam Vital Signs: Temp Pulse Resp BP Pulse Ox O2 Del Method O2 Flow Rate 98.3 F 71 18 149/77 H 96 Nasal Cannula 4 11/19/22 11:25 11/19/22 11:25 11/19/22 11:25 11/19/22 11:25 11/19/22 11:25 11/19/22 11:25 11/19/22 11:25 HEENT Head: normal to inspection Ears: hearing grossly normal bilaterally Nose: external nose normal and nares normal Face and sinus: normal facial exam Mouth: oral mucosae normal and tongue normal Eyes Conjunctivae: conjunctivae normal Sclera: sclerae normal Neck Neck: normal visual inspection Carotids: normal carotid upstroke Lymphatic: no lymphadenopathy noted Chest Chest palpation & inspection: normal inspection of the chest Resp Effort & Inspection: normal respiratory effort Auscultation: clear to auscultation bilaterally Cardio Rate: regular rate Rhythm: regular rhythm Heart Sounds: S1 normal, S2 normal and murmur systolic III/ GI Inspection: normal to inspection Palpation: soft Skin General: no rashes or lesions noted Neuro General: patient alert, patient awake and patient oriented x3 Cognition: normal cognition Motor: muscle tone normal throughout Sensory Exam: no sensory deficits noted Results Labs 11/19/22 03:13 11/19/22 03:13 Lab results: Cardiac Enzymes 11/18/22 11/18/22 11/18/22 Range/Units 17:51 17:51 17:51 AST 15 (13-39) U/L Total Creatine Kinase 46 (30-223) U/L B-Natriuretic Peptide 2080.0 H (5-100) pg/mL 11/18/22 11/19/22 11/19/22 Range/Units 20:06 03:13 11:30 AST (13-39) U/L Total Creatine Kinase 44 35 31 (30-223) U/L B-Natriuretic Peptide (5-100) pg/mL CBC 11/18/22 11/19/22 Range/Units 17:51 03:13 RBC 2.98 L 2.93 L (3.60-5.00) X10E6/uL Hgb 8.7 L 8.5 L (11.8-15.4) g/dL Hct 26.8 L 26.7 L (34.0-46.4) % Plt Count 169 140 L (150-450) x10E3/uL Neut # (Auto) 4.7 4.1 (1.8-7.7) x10E3/uL Lymph # (Auto) 1.5 1.6 (1.00-4.8) x10E3/uL [place] # (Auto) 0.4 0.4 (0.0-0.8) x10E3/uL Eos # (Auto) 0.1 0.1 (0.0-0.45) x10E3/uL Baso # (Auto) 0.0 0.0 (0.0-0.2) x10E3/uL Comprehensive Metabolic Panel 11/18/22 11/18/22 11/19/22 Range/Units 17:51 17:51 03:13 Sodium 142 144 (136-145) mmol/L Potassium 5.2 H 4.9 (3.5-5.1) mmol/L Chloride 101 101 (98-107) mmol/L Carbon Dioxide 36.2 H 38.1 H (21.0-31.0) mmol/L BUN 29 H 28 H (7-25) mg/dL Creatinine 1.78 H 1.76 H (0.60-1.20) mg/dL Glucose 101 H 100 (70-100) mg/dL Calcium 8.1 L 8.1 L (8.6-10.3) mg/dL Direct Bilirubin 0.10 (0.03-0.18) mg/dL Indirect Bilirubin 0.3 mg/dL AST 15 (13-39) U/L ALT 10 (7-52) U/L Alkaline Phosphatase 54 (34-104) U/L Total Protein 6.6 (6.4-8.9) gm/dL Albumin 3.4 L (3.5-5.7) gm/dL Intake and Output 11/18/22 11/19/22 11/19/22 23:59 07:59 15:59 Intake Total 60 / 60 50 / 500 450 / 500 Output Total 300 / 300 150 / 150 Balance -240 / -240 50 / 350 300 / 350 Intake: Oral 60 / 60 50 / 500 450 / 500 Output: Urine 300 / 300 150 / 150 Other: # Voids 1 # Unmeasured Voids 1 1 4 # Bowel Movements 0 0 Weight 75.8 kg 76.6 kg Patient Weight 11/19/22 23:59 Weight 76.6 kg Lab 11/18/22 17:51 PT 17.6 H INR 1.5 APTT 35.1 A&P - Cardiology (1) Acute diastolic CHF (congestive heart failure), NYHA class 3: Assessment/Problem Details: Patient's symptoms and findings are most consistent with acute diastolic CHF. She has normal systolic function. More than likely it is on the basis of this and the aortic stenosis as noted below. Code(s): I50.31 - Acute diastolic (congestive) heart failure (2) Aortic stenosis: Assessment/Problem Details: At least moderately severe in nature. Previously she did not know she had this. Code(s): I35.0 - Nonrheumatic aortic (valve) stenosis (3) Pulmonary hypertension: Assessment/Problem Details: Patient denies a known history of pulmonary hypertension. She does acknowledge a history of COPD. Code(s): I27.20 - Pulmonary hypertension, unspecified Plan Continue home medication. Parenteral furosemide appears to be an acceptable intervention. I would add metolazone and follow chemistries daily. Patient will most likely require another 24 to 48 hours of inpatient hospital heart failure treatment. Documented By: Rey Arriaga MD [id number] Signed By: <Electronically signed by MD Rey Arriaga> 11/19/22 1453 [facility] Work Phone: 1(539) 495-936907-20-2023 Progress note Author Gina Poole [facility] November 19, 2022 11:54am Note Date/Time November 19, 2022 11:5 4am [facility] [address] [place] [address] Hospitalist Progress Note Signed Patient: Martin Hagen MR#: [id number] : 1950 Acct:[id number] Age/Sex: 71 / F Adm Date: 3 Loc: 4 Room: [address] [place] [address] Type: ADM IN Attending Dr: Gina Poole DO Copies to: ~ Date of Service: 11/19/2022 Subjective Subjective Narrative: Patient was seen and examined at side. No acute events overnight. No new complaints. Breathing mildly improved Physical Examination: GENERAL APPEARANCE: Alert, up in bed AAOx3 HEENT: NCAT, MMM NECK: Neck soft w/o masses, no JVD CARDIAC: Normal S1 and S2. No S3, S4 or murmurs. Holosystolic murmur noted diffusely LUNGS: Clear to auscultation bilaterally. no wheeze/rhonchi/rales ABDOMEN: Positive bowel sounds. Soft, nontender. No guarding or signs of an acute abdomen MUSCULOSKELETAL: No joint erythema or tenderness. EXTREMITIES: No clubbing, cyanosis or 2+ pitting edema bilateral lower extremities PSYCHIATRIC: Appropriate mood and affect Assessment and plan: 1. Acute exacerbation of congestive heart failure Echocardiogram ejection fraction and severe pulmonary hypertension. we will continue diuresis 2. Severe aortic stenosis We will consult cardiology for medical optimization and possible surgical referral. We will avoid vasodilators and can consider decreasing dose of beta-georgie. 3. Contraction alkalosis We will follow with a.m. labs as diuresis is likely to make this worse. Perhapssome component of compensation for CO2 retention. 4. Anemia Ferritin level is elevated and iron level is on the lower side. This is seemingly anemia of chronic inflammation rather than iron deficiency. 5. Acute kidney injury versus chronic kidney disease Unclear baseline. Relatively unchanged today with Lasix. 6. Diabetes mellitus #2 sliding scale Disposition: Patient will need continuous telemetry monitoring, daily labs for electrolyte monitoring while receiving work-up for heart failure and IV diuresisfor fluid overload. She is thus admitted as an inpatient. Exam Physical Exam Vital Signs: Temp Pulse Resp BP Pulse Ox O2 Del Method O2 Flow Rate 98.3 F 71 18 149/77 H 96 Nasal Cannula 4 11/19/22 11:25 11/19/22 11:25 11/19/22 11:25 11/19/22 11:25 11/19/22 11:25 11/19/22 11:25 11/19/22 11:25 Objective Lab Results 11/19/22 03:13 11/19/22 03:13 Meds Allergies and Active Meds Allergies No Known Allergies Allergy (Verified 11/18/22 16:16) Active Meds: Active Medications Generic Name Dose Route Start Last Admin Trade Name Freq PRN Reason Stop Dose Admin Hydrocodone Bitart/Acetaminophen 1 tab 11/18/22 21:55 Hydrocodone/Acetaminophen 5-325 Mg Tablet PO BID PRN Pain Alprazolam 1 mg 11/18/22 22:37 11/19/22 00:14 Alprazolam 0.5 Mg Tablet PO 05/17/23 22:36 1 mg BID PRN Administration Anxiety Apixaban 5 mg 11/19/22 09:00 11/19/22 08:24 Apixaban 5 Mg Tablet PO 11/19/23 08:59 5 mg DAILY OSCAR Administration Brexpiprazole 1 mg 11/18/22 23:00 11/19/22 00:14 Brexpiprazole 1 Mg Tablet PO 11/18/23 22:59 1 mg QHS OSCAR Administration Budesonide/Formoterol Fumarate 2 puff 11/19/22 09:00 11/19/22 08:01 Budesonide/Formoterol 160-4.5 Mcg 60 Puff/6 Gm Hfa.Aer.Ad INHALATION 11/19/23 08:59 2 puff BID OSCAR Administration Calcium Carbonate 1 tab 11/19/22 09:00 11/19/22 08:23 Calcium Carbonate/Vitamin D3 500 Mg/200 Unit Tablet PO 11/19/23 08:59 1 tab BID OSCAR Administration Empagliflozin 10 mg 11/19/22 09:00 11/19/22 08:24 Empagliflozin 10 Mg Tablet PO 11/19/23 08:59 10 mg DAILY OSCAR Administration Fluoxetine HCl 40 mg 11/19/22 09:00 11/19/22 08:23 Fluoxetine 20 Mg Capsule PO 11/19/23 08:59 40 mg DAILY OSCAR Administration Furosemide 60 mg 11/19/22 08:00 11/19/22 08:41 Furosemide 40 Mg/4 Ml Vial IV-PUSH 11/19/23 07:59 60 mg BID@0800,1600 OSCAR Administration Magnesium Sulfate 2 gm in 50 mls @ 25 mls/hr 11/18/22 19:07 Magnesium Sulf 2gm-*Swfi* IV 11/18/23 19:06 DAILY PRN Magnesium < 1.6 Insulin Aspart 0 units 11/19/22 12:00 Insulin Aspart 300 Units/3 Ml Insuln.Pen SUBCUT 11/19/23 11:59 TID.WM.HS OSCAR Protocol Magnesium Oxide 400 mg 11/19/22 09:00 11/19/22 08:24 Magnesium Oxide 400 Mg Tablet PO 11/19/23 08:59 400 mg BID OSCAR Administration Metoprolol Tartrate 50 mg 11/19/22 09:00 11/19/22 08:24 Metoprolol Tartrate 50 Mg Tablet PO 11/19/23 08:59 50 mg BID OSCAR Administration Non-Formulary Medication 0.75 mg 11/25/22 09:00 Dulaglutide [Trulicity] SUBCUT 11/25/23 08:59 QWEEK OSCAR Potassium Chloride 40 meq 11/18/22 19:07 Potassium Chloride Er 20 Meq Tab.Er.Prt PO 11/18/23 19:06 DAILY PRN Hypokalemia Sodium Chloride 0 ml 11/18/22 16:15 Sodium Chloride 0.9 % 10 Ml Syringe IV-PUSH 11/18/23 16:14 PRN PRN Flush Tizanidine HCl 4 mg 11/18/22 21:55 Tizanidine 4 Mg Tablet PO 11/18/23 21:54 TID PRN Spasms Documented By: Gina Poole DO 11/19/22 11 45 Signed By: <Electronically signed by Gina Poole DO> 11/19/22 1154 [facility] Work Phone: 1(812) 464-386707-20-2023 History and physical note Author Gina Poole [facility] November 18, 2022 10:13pm Note Date/Time November 18, 2022 10:1 1pm [facility] [address] [place] [address] Hospitalist H&P Signed Patient: Martin Hagen MR#: [id number] : 1950 Acct:[id number] Age/Sex: 71 / F Adm Date: 3 Loc: Room: [address] [place] [address] Type: ADM IN Attending Dr: Gina Poole DO Copies to: MD Gina Arambula II, DO~ HPI DATE OF EXAMINATION: 11/18/22 CHIEF COMPLAINT: Shortness of breath HISTORY OF PRESENT ILLNESS: This patient is a 71-year-old female presented to the emergency department earlier today with worsening shortness of breath for the past week or so. She describes a dry cough accompanying this and increasing peripheral edema. She adryan 3 L of nasal cannula chronically at home. Her vital signs on arrival to the ER revealed a temperature of 98.3 ?F, heart rate of 73, respirations of 22/min, blood pressure 123/69, saturating in the 90s on 3 L nasal cannula. Repeat bloodpressures increasing into the 190s systolically. Her CBC is significant for an H&H of 8.7/26.8. Chemistries reveal mild hyperkalemia 5.2, alkalosis with bicarb 36.2, BUN and creatinine 29/1.78. Her EKG showed a normal sinus rhythm and no concerning ischemic changes. Her brain natruretic peptide level was significantly elevated at 2080. High-sensitivity troponin 18.0, repeat 18.4. The patient was provided IV Lasix and admitted to the progressive unit for further treatment and evaluation of acute CHF exacerbation. Patient reports having been treated for C. difficile twice, most recently finishing therapy over a month ago. She reports some ongoing looser stools since that time despite finishing antibiotic therapy. She reports ongoing nausea of unclear etiology. Sometimes this is associated with meals. Vague mild discomfort of the abdomen also associated with meals although not always. Physical Examination: GENERAL APPEARANCE: Alert, up in bed AAOx3 HEENT: NCAT, MMM NECK: Neck soft w/o masses, no JVD CARDIAC: Normal S1 and S2. No S3, S4 or murmurs. LUNGS: Clear to auscultation bilaterally. no wheeze/rhonchi/rales ABDOMEN: Positive bowel sounds. Soft, nontender. No guarding or signs of an acute abdomen MUSCULOSKELETAL: No joint erythema or tenderness. EXTREMITIES: No clubbing, cyanosis or 2+ pitting edema bilateral lower extremities PSYCHIATRIC: Appropriate mood and affect Assessment and plan: 1. Acute exacerbation of congestive heart failure Check echocardiogram. Patient endorses a history of CHF in the past however unclear of precise severity. She is on relatively high-dose Bumex at home. Will start the patient on 60 mg IV Lasix twice daily. Monitor I's and O's. 2. Troponin elevation Likely insignificant. Will trend. 3. Contraction alkalosis Likely from chronic diuretics. Monitor for any CO2 retention as this could be compensation for hypercapnia. We will follow with a.m. labs. If worsening may need to consider acetazolamide. 4. Anemia No microcytosis but will check iron studies. She may possibly have anemia of chronic disease including chronic kidney disease 5. Acute kidney injury Unclear baseline. Will monitor response to diuresis. 6. Diabetes mellitus Patient takes SGLT 2 inhibitor and GLP-1 agonist at home. We will order these and give formulary equivalent if possible. Otherwise will monitor sugars and start #2 sliding scale Disposition: Patient will need continuous telemetry monitoring, daily labs for electrolyte monitoring while receiving work-up for heart failure and IV diuresisfor fluid overload. She is thus admitted as an inpatient. Review of Systems Review of Systems All other systems reviewed & are negative unless noted below or in HPI PMFSH Vaccinated for COVID-19?: No Medical History (Updated 11/18/22 @ 21:50 by Hamida Chaparro RN) Afib Anxiety Arthritis Bronchial asthma Bronchial spasms CHF (congestive heart failure) Chronic low back pain COPD (chronic obstructive pulmonary disease) Depression Diabetes Glaucoma, right eye Hyperlipidemia Macular degeneration of both eyes Sleep apnea treated with continuous positive airway pressure (CPAP) Family History Brother Myocardial infarction Father Myocardial infarction Mother History of open heart surgery COPD (chronic obstructive pulmonary disease) Emphysema of lung Sister Stroke Hypertension Sister Stroke Hypertension Sister Stroke Social History Smoking Status: Current every day smoker Tobacco Type: cigarettes Substance Use Type: None Meds Medications and Allergies Allergies No Known Allergies Allergy (Verified 11/18/22 16:16) Home Medications albuterol sulfate 90 mcg/actuation aerosol inhaler (Ventolin HFA) inhalation 11/18/22 [History] alprazolam 1 mg tablet 1 mg PO BID PRN Anxiety 11/18/22 [History Confirmed 11/18/22] ammonium lactate 12 % lotion topical 11/18/22 [History] apixaban 5 mg tablet (Eliquis) 5 mg PO DAILY 11/18/22 [History Confirmed 11/18/22] brexpiprazole 1 mg tablet (Rexulti) 1 mg PO QHS 11/18/22 [History Confirmed 11/18/22] bumetanide 2 mg tablet 1 mg PO QHS 11/18/22 [History Confirmed 11/18/22] bumetanide 2 mg tablet 2 mg PO QAM 11/18/22 [History Confirmed 11/18/22] calcium carbonate 600 mg-vitamin D3 10 mcg (400 unit) tablet 400 tab PO BID 11/18/22 [History Confirmed 11/18/22] cyclobenzaprine 10 mg tablet 10 mg PO TID 11/18/22 [History Confirmed 11/18/22] dapagliflozin propanediol 10 mg tablet (Farxiga) 10 mg PO DAILY 11/18/22 [History Confirmed 11/18/22] dulaglutide 0.75 mg/0.5 mL subcutaneous pen injector (Trulicity) 0.75 mg subcut QWEEK 11/18/22 [History Confirmed 11/18/22] fluoxetine 40 mg capsule 40 mg PO DAILY 11/18/22 [History Confirmed 11/18/22] fluticasone 250 mcg-salmeterol 50 mcg/dose blistr powdr for inhalation (Advair Diskus) 2 inh inhalation QID 11/18/22 [History Confirmed 11/18/22] hydrocodone 5 mg-acetaminophen 325 mg tablet 1 tab PO 2XD PRN Pain 11/18/22 [History Confirmed 11/18/22] magnesium oxide 400 mg (241.3 mg magnesium) tablet 400 mg PO BID 11/18/22 [History Confirmed 11/18/22] metoprolol tartrate 50 mg tablet 50 mg PO BID 11/18/22 [History Confirmed 11/18/22] tizanidine 4 mg tablet 4 mg PO TID PRN Spasms 11/18/22 [History Confirmed 11/18/22] Exam Physical Exam Vital Signs: Temp Pulse Resp BP Pulse Ox O2 Del Method O2 Flow Rate 98.1 F 81 24 166/81 H 97 Nasal Cannula 3 11/18/22 21:27 11/18/22 21:27 11/18/22 21:27 11/18/22 21:27 11/18/22 21:27 11/18/22 21:27 11/18/22 21:27 Results Lab Results Labs: Laboratory Last Values Corrected WBC 6.8 X10E3/uL (3.8-11.6) 11/18/22 17:51 Uncorrected WBC Count 6.8 x10E3/uL (3.8-11.6) 11/18/22 17:51 RBC 2.98 X10E6/uL (3.60-5.00) L 11/18/22 17:51 Hgb 8.7 g/dL (11.8-15.4) L 11/18/22 17:51 Hct 26.8 % (34.0-46.4) L 11/18/22 17:51 MCV 89.8 fl (80-100) 11/18/22 17:51 MCH 29.1 pg (24.7-34.3) 11/18/22 17:51 MCHC 32.4 g/dL (32.0-35.0) 11/18/22 17:51 RDW 15.2 % (11.9-15.3) 11/18/22 17:51 Plt Count 169 x10E3/uL (150-450) 11/18/22 17:51 MPV 8.2 fl (6.3-10.7) 11/18/22 17:51 Neut % (Auto) 69.4 % (.) 11/18/22 17:51 Lymph % (Auto) 22.5 % (.) 11/18/22 17:51 [place] % (Auto) 5.7 % (.) 11/18/22 17:51 Eos % (Auto) 1.7 % (.) 11/18/22 17:51 Baso % (Auto) 0.7 % (.) 11/18/22 17:51 Nucleat RBC Rel Count 0.0 /100 WBC (0-0.5) 11/18/22 17:51 Neut # (Auto) 4.7 x10E3/uL (1.8-7.7) 11/18/22 17:51 Lymph # (Auto) 1.5 x10E3/uL (1.00-4.8) 11/18/22 17:51 [place] # (Auto) 0.4 x10E3/uL (0.0-0.8) 11/18/22 17:51 Eos # (Auto) 0.1 x10E3/uL (0.0-0.45) 11/18/22 17:51 Baso # (Auto) 0.0 x10E3/uL (0.0-0.2) 11/18/22 17:51 Monocyte Dist Width 16.05 % (0.00-20.00) 11/18/22 17:51 PT 17.6 Seconds (9.0-12.9) H 11/18/22 17:51 INR 1.5 11/18/22 17:51 APTT 35.1 Seconds (25.1-36.5) 11/18/22 17:51 PHA Creatinine Clear 25.51 11/18/22 17:51 Sodium 142 mmol/L (136-145) 11/18/22 17:51 Potassium 5.2 mmol/L (3.5-5.1) H 11/18/22 17:51 Chloride 101 mmol/L (98-107) 11/18/22 17:51 Carbon Dioxide 36.2 mmol/L (21.0-31.0) H 11/18/22 17:51 Anion Gap 10.0 mEq/L (6.0-15.0) 11/18/22 17:51 BUN 29 mg/dL (7-25) H 11/18/22 17:51 Creatinine 1.78 mg/dL (0.60-1.20) H 11/18/22 17:51 Est GFR (CKD-EPI) 29.779 mL/Min 11/18/22 17:51 Glucose 101 mg/dL (70-100) H 11/18/22 17:51 Calcium 8.1 mg/dL (8.6-10.3) L 11/18/22 17:51 Total Bilirubin 0.4 mg/dl (0.3-1.0) 11/18/22 17:51 Direct Bilirubin 0.10 mg/dL (0.03-0.18) 11/18/22 17:51 Indirect Bilirubin 0.3 mg/dL 11/18/22 17:51 AST 15 U/L (13-39) 11/18/22 17:51 ALT 10 U/L (7-52) 11/18/22 17:51 Alkaline Phosphatase 54 U/L (34-104) 11/18/22 17:51 Total Creatine Kinase 44 U/L (30-223) 11/18/22 20:06 Troponin I High Sens 18.4 pg/mL (0.0-15.0) H 11/18/22 20:06 B-Natriuretic Peptide 2080.0 pg/mL (5-100) H 11/18/22 17:51 Total Protein 6.6 gm/dL (6.4-8.9) 11/18/22 17:51 Albumin 3.4 gm/dL (3.5-5.7) L 11/18/22 17:51 Globulin 3.2 gm/dL 11/18/22 17:51 Albumin/Globulin Ratio 1.1 11/18/22 17:51 Assessment & Plan IP vs OBS Justification Based on differential dx, clinical care plan, and risk of adverse events, if untreated, in my clinical judgement this patient requires an acute care setting as: INPATIENT because of an expectation of an over 2 midnight stay. Estimated length of stay (# of days): 3 Documented By: Gina Poole DO 11/18/2224 06 Signed By: <Electronically signed by Gina Poole DO> 11/18/22 2212 [facility] Work Phone: 1(795) 391-730406-27-2023 NoteHypertension is well controlled 108/62 Continue all meds Renal function stable for her- will continue to monitor and pt states she is to start F/[facility] Zhou in [place] [facility]-2023 NoteNYHC- III- currently fluid overloaded and weight gain of 15 pounds in 2 weeks Continue GDMT- farxiga Diuretic therapy-increase bumex to 2mg in am and 1 mg in pm, repeat BMP next week Monitor daily weights, I&O, fluid restriction 1.5-2L/day, renal function and electrolytes- RTC 1month for re-evalautionUnOhio [facility]06-27-2023 Note Repeat limited echo to assess RV function, RVSP- rt sided pressures, and noted D shaped septum on inpt echo.[facility]06-27-2023 Note [id number]= 4 continue metoprolol for rate control, and eliquis anticoagulationUnOhio State East Hospital06-27-2023 NotePatient here for follow up [facility] for CHF. She was seen as inpatient consult by Dr. Sterling on 10/12. Has some chest pressure s/p hospital stay. Review of Systems Cardiovascular: Positive for dyspnea on exertion. Respiratory: Positive for cough and shortness of breath. Musculoskeletal: Positive for arthritis, back pain, joint pain, joint swelling, muscle weakness and neck pain. Neurological: Positive for headaches, seizures (hx of) and weakness. All other systems reviewed and are negative.[facility] 10-27-2022 NoteUTP CARDIOLOGY PROGRESS NOTE HPI: Martin Hagen is a 71 y.o. female here for No chief complaint on file. Patient here for follow up [facility] for CHF. She was seen as inpatient consult by Dr. Sterling on 10/12. Has some chest pressure s/p hospital stay. Review of SNF chart and pt's weight is increased 16 pounds over the last 2 weeks, she admits increased heaviness and breathing congestion. Currently she takes bumex 2 mg daily, renal function was CR 1.5 at DC- no aldactone was initiated. She denied chest pain, leg swelling, fever, chills. She recently was inpt at [facility] for resp failure, exacerbation of HFpEF, and she developed c diff as inpt. Discharge summary- 10/08/22-10/14/22 Review of Systems Cardiovascular: Positive for dyspnea on exertion. Respiratory: Positive for cough and shortness of breath. Musculoskeletal: Positive for arthritis, back pain, joint pain, joint swelling, muscle weakness and neck pain. Neurological: Positive for headaches, seizures (hx of) and weakness. All other systems reviewed and are negative. Last note per Dr Maxwell 09/22/22 Assessment: Heart failure with preserved ejection fraction (HFrEF) Pulmonary hypertension; RVSP 101 mmHg echo 08/2022 - Likely WHO Group 3 related to chronic lung disease and hypoxemia Tachycardia - sinus Hypertension Paroxysmal atrial fibrillation; [id number] - 4 (age, female, HTN, HF) - she requires long-term anticoagulation for stroke prophylaxis. She denies bleeding issues. Continue Eliquis 5mg BID. Nonrheumatic aortic valve stenosis; moderate on echocardiogram 08/2021 Benign hypertensive kidney disease with chronic kidney disease stage I through stage IV Visit Vitals BP 108/62 (BP Location: Right arm, Patient Position: Sitting) Pulse 80 Ht 1.524 m (5') SpO2 93% BMI 33.01 kg/m??? Smoking Status Every Day BSA 1.8 m??? Allergies Allergen Reactions Bee Venom Protein (Honey Bee) Other reaction(s): Swelling of body region Grapefruit Unknown Naproxen Sodium Other Pineapple Unknown Wool Medications: Current Outpatient Medications on File Prior to Visit Medication Sig Dispense Refill albuterol 90 mcg/actuation inhaler Inhale 2 puffs every 4 (four) hours if needed. ALPRAZolam (Xanax) 1 mg tablet TAKE 1 TABLET BY MOUTH THREE TIMES DAILY FOR 30 DAYS bumetanide (Bumex) 1 mg tablet Take 2 mg by mouth in the morning. dulaglutide (Trulicity) 1.5 mg/0.5 mL pen injector Inject 0.5 mL every week by subcutaneous route. Eliquis 5 mg tablet Take 5 mg by mouth in the morning and at bedtime. FLUoxetine (PROzac) 40 mg capsule TAKE 1 CAPSULE BY MOUTH ONCE DAILY IN THE MORNING magnesium oxide (Mag-Ox) 400 mg (241.3 mg magnesium) tablet Take 1 tablet by mouth with breakfast and with evening meal. metoprolol tartrate (Lopressor) 50 mg tablet in the morning and at bedtime. metroNIDAZOLE (Flagyl) 500 mg tablet Take 500 mg by mouth in the morning, at noon, and at bedtime. pantoprazole (ProtoNix) 40 mg EC tablet Take 40 mg by mouth in the morning and at bedtime. Do not crush, chew, or split. potassium chloride CR (K-Tab) 20 mEq ER tablet TAKE 1 TABLET BY MOUTH ONCE DAILY FOR 14 DAYS Rexulti 2 mg tablet Take 1 tablet by mouth once daily as directed. [DISCONTINUED] FeroSuL 325 mg (65 mg iron) tablet Take 1 tablet by mouth in the morning and at bedtime. [DISCONTINUED] omeprazole (PriLOSEC) [address] capsule Take 40 mg by mouth in the morning and at bedtime. No current facility-administered medications on file prior to visit. Physical Exam: Constitutional: Appearance: Normal appearance. Without apparent distress, obese, chronically ill, on O2 24/7 HENT: Head: Normocephalic and atraumatic. Nose: Nose normal. Mouth/Throat: Mouth: Mucous membranes are moist. Eyes: Extraocular Movements: Extraocular movements intact. Conjunctiva/sclera: Conjunctivae normal. Neck: Vascular: No JVD. Cardiovascular: Rate and Rhythm: Normal rate and regular rhythm. Pulses: Dorsalis pedis pulses are 3 on the right side and 3on the left side. Posterior tibial pulses are 3 on the right side and 3 on the left side. Heart sounds: Normal heart sounds, S1 normal and S2 normal. Pulmonary: Effort: Pulmonary effort is normal. Breath sounds: Normal breath sounds. Abdominal: General: Bowel sounds are normal. Palpations: Abdomen is soft. Musculoskeletal: General: Normal range of motion. Cervical back: Normal range of motion. Right lower leg: trace edema. Left lower leg: trace edema. Skin: General: Skin is warm and dry. Capillary Refill: Capillary refill takes less than 2 seconds. Neurological: General: No focal deficit present. Mental Status: She is alert and oriented to person, place, and time. Psychiatric: Mood and Affect: Mood normal. Behavior: Behavior normal. Thought Content: Thought content normal. Judgment: Judgment normal. Labs: Last lab values have been reviewed CV Testin10/09/22 Echo (more content not included)...[facility]05-23-2023 Note [facility] Cardiology Clinic Note Chief Complaint: patient is here today for event monitor follow up HPI: Martin Hagen is a 71 y.o. female Chief Complaint: Patient here for 3 mo follow up CHF and afib. She was started on spironolactone at last apt in Apr 2022 by Linette Sanchez CNP. Had labs a few days after that. Denies chest pain and palpitations. Denies lightheadedness and bleeding on Eliquis. HPI: Martin was originally seen by [place] [facility] during her admission to [facility] at the beginning of March,. She was admitted for acute on chronic HFpEF and acute on chronic respiratory failure. She was diuresed and discharged home. We recommended adding spironolactone to her HFpEF regimen, however, it appears this was not initiated at discharge. She was also found to have new onset a.fib and she was started on anticoagulation. Since we saw her, she has been admitted on 2 occasions. 1st occasion for seizure and 2nd for UTI. 04/13/2022 Today she was just discharged from [facility] where she was admitted for UTI. She states she has been feeling well from a fluid standpoint. Denies issues with worsening dyspnea, weight gain, leg swelling, orthopnea, PND, etc. 09/22/2022: The patient is short of breath, she was recently diagnosed with a pneumonia/bronchitis. She was started on p.o. prednisone. She denies chest pain. She has no new cardiovascular symptoms Cardiology ROS: Review of Systems Cardiovascular: Positive for dyspnea on exertion and leg swelling. Respiratory: Positive for cough and shortness of breath. Musculoskeletal: Positive for arthritis, back pain, joint pain, joint swelling, muscle weakness and neck pain. Gastrointestinal: Positive for bloating and abdominal pain. Neurological: Positive for dizziness, headaches, seizures (hx of) and weakness. All other systems reviewed and are negative. Past Medical History She has a past medical history of Atrial fibrillation (CMS/[facility]) and CHF (congestive heart failure) (CMS/[facility]). Surgical History She has no past surgical history on file. Social History She reports that she has been smoking cigarettes. She has been smoking an average of .5 packs per day. She has never used smokeless tobacco. She reports current alcohol use. No history on file for drug use. Family History Family History Problem Relation Name Age of Onset Stroke Mother Hypertension Mother Heart attack Father Hypertension Sister Heart attack Sister Heart attack Brother Allergies Naproxen sodium Medications Current Outpatient Medications: albuterol 90 mcg/actuation inhaler, Inhale 2 puffs every 4 (four) hours if needed., Disp: , Rfl: ALPRAZolam (Xanax) 1 mg tablet, TAKE 1 TABLET BY MOUTH THREE TIMES DAILY FOR 30 DAYS, Disp: , Rfl: bumetanide (Bumex) 1 mg tablet, TAKE 1 TABLET BY MOUTH BEFORE BREAKFAST, Disp: , Rfl: dulaglutide (Trulicity) 1.5 mg/0.5 mL pen injector, Inject 0.5 mL every week by subcutaneous route., Disp: , Rfl: Eliquis 5 mg tablet, Take 5 mg by mouth in the morning and at bedtime., Disp: , Rfl: FeroSuL 325 mg (65 mg iron) tablet, Take 1 tablet by mouth in the morning and at bedtime., Disp: , Rfl: FLUoxetine (PROzac) 40 mg capsule, TAKE 1 CAPSULE BY MOUTH ONCE DAILY IN THE MORNING, Disp: , Rfl: magnesium oxide (Mag-Ox) 400 mg (241.3 mg magnesium) tablet, Take 1 tablet by mouth with breakfast and with evening meal., Disp: , Rfl: metoprolol tartrate (Lopressor) 50 mg tablet, in the morning and at bedtime., Disp: , Rfl: omeprazole (PriLOSEC) [address] capsule, Take 40 mg by mouth in the morning and at bedtime., Disp: , Rfl: Rexulti 2 mg tablet, Take 1 tablet by mouth in the morning and at bedtime., Disp: , Rfl: spironolactone (Aldactone) 25 mg tablet, Take 0.5 tablets (12.5 mg) by mouth in the morning., Disp: 15 tablet, Rfl: 11 Last Recorded Vitals BP 132/68 (BP Location: Right arm, Patient Position: Sitting, BP Cuff Size: Adult) Pulse 75 Ht 1.524 m (5') Wt 76.7 kg (169 lb) SpO2 90% BMI 33.01 kg/m??? Physical Examination: GENERAL: alert and oriented x3, well developed, in no acute distress. HEAD: atraumatic, normocephalic. EYES: LIZZIE, EOMI. NECK: trachea midline, no JVD present, no carotid bruits present. CARDIAC: S1, S2 present. RRR. No murmur, rubs, or gallops. RESPIRATORY: CTAB, no increased effort of breathing, no rales, rhonchi, or wheezing. ABDOMEN: soft, nontender, nondistended. EXTREMITIES: no lower extremity edema, peripheral pulses are 2+ bilaterally. No rash/skin discoloration present. NEURO: strength/sensation equal and symmetric in bilateral upper and lower extremities. PSYCH: appropriate mood, affect, and judgement. Investigations: Echocardiogram 08/2021: Global left ventricular systolic function is normal. EF is 60 to 65%. Grade 2 diastolic dysfunction. Moderate aortic valve stenosis. Mild tricuspid regurgitation. Mildly elevated right-sided pressures. Event monitor: Sinus (more content not included)...[facility]04-27-2023 Evaluation note* Encounter Date Diagnosis Assessment Notes Treatment Notes Treatment Clinical Notes Aug, Chronic kidney disea se, stage 3b (ICD-10 - N18.32) It was a pleasure to see Mrs. Hagen in our office for evaluation and management of CKD. As you know she has a longstanding CKD due to DM and HTN. Recently she was noticed to have worsening renal function due to the recurrent ELI in setting of CHF and diuresis. I have ordered a renal ultrasound to evaluate the renal anatomy. I have ordered a UA UPCR to look for hematuria and proteinuria. I discussed with her the importance of good DM and HTN control to slow down the progression of CKD. Aug, Diabetes mellitus wi th chronic kidney disease (ICD-10 - E11.22) She has a type 2 diabetes mellitus currently on diet control. She reported to have a foamy urine. We will check urine protein creatinine ratio. 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 She appears to be euvolemic. Continue current medications. Aug, Anemia of renal dise ase (ICD-10 - D63.1) Hemoglobin is within the goal. We will check iron studies B12 folate level. We will also do a work-up for paraproteinemia. Aug, Secondary hyperparathyroidism (ICD-10 - N25.81) Calcium is within normal limit. We will check PTH and vitamin D. [employer] Other 03-29-2023 Hospital Discharge instructions Patient Education 07/29/2022 09:52:31 Calorie Counting for Weight Loss Calorie Counting for Weight Loss Calories are units of energy. Your body needs a certain amount of calories from food to keep you going throughout the day. When you eat more calories than your body needs, your body stores the extra calories as fat. When you eat fewer calories than your body needs, your body [place] fat to get the energy it needs. Calorie counting means keeping track of how many calories you eat and drink each day. Calorie counting can be helpful if you need to lose weight. If you make sure to eat fewer calories than your bodyneeds, you should lose weight. Ask your health care provider what a healthy weight is for you. For calorie counting to work, you will need to eat the right number of calories in a day in order to lose a healthy amount of weight per week. A dietitian can help you determine how many calories youneed in a day and will give you suggestions on how to reach your calorie goal. A healthy amount of weight to lose per week is usually 1 2 lb (0.5 0.9 kg). This usually means thatyour daily calorie intake should be reduced by 500 750 calories. Eating 1,200 1,500 calories per day can help most women lose weight. Eating 1,500 1,800 calories per day can help most men lose weight. What is my plan? My goal is to have calories per day. If I have this many calories per day, I should lose around pounds per week. What do I need to know about calorie counting? In order to meet your daily calorie goal, you will need to: Find out how many calories are in each food you would like to eat. Try to do this before you eat. Decide how much of the food you plan to eat. Write down what you ate and how many calories it had. Doing this is called keeping a food log. To successfully lose weight, it is important to balance calorie counting with a healthy lifestyle that includes regular activity. Aim for 150 minutes of moderate exercise (such as walking) or 75 minutes of vigorous exercise (such as running) each week. Where do I find calorie information? The number of calories in a food can be found on a Nutrition Facts label. If a food does not have aNutrition Facts label, try to look up the calories online or ask your dietitian for help. Remember that calories are listed per serving. If you choose to have more than one serving of a food, you will have to multiply the calories per serving by the amount of servings you plan to eat. Forexample, the label on a package of bread might say that a serving size is 1 slice and that there are 90 calories in a serving. If you eat 1 slice, you will have eaten 90 calories. If you eat 2 slices, you will have eaten 180 calories. How do I keep a food log? Immediately after each meal, record the following information in your food log: What you ate. Don't forget to include toppings, sauces, and other extras on the food. How much you ate. This can be measured in cups, ounces, or number of items. How many calories each food and drink had. The total number of calories in the meal. Keep your food log near you, such as in a small notebook in your pocket, or use a mobile anuradha or website. Some programs will calculate calories for you and show you how many calories you have left forthe day to meet your goal. What are some calorie counting tips? Use your calories on foods and drinks that will fill you up and not leave you hungry: ?Some examples of foods that fill you up are nuts and nut butters, vegetables, lean proteins, and high-fiber foods like whole grains. High-fiber foods are foods with more than 5 g fiber per serving. ?Drinks such as sodas, specialty coffee drinks, alcohol, and juices have a lot of calories, yet do not fill you up. Eat nutritious foods and avoid empty calories. Empty calories are calories you get from foods or beverages that do not have many vitamins or protein, such as candy, sweets, and soda. It is better to have a nutritious high-calorie food (such as an avocado) than a food with few nutrients (such as a bag of chips). Know how many calories are in the foods you eat most often. This will help you calculate calorie counts faster. Pay attention to calories in drinks. Low-calorie drinks include water and unsweetened drinks. Pay attention to nutrition labels for low fat or fat free foods. These foods sometimes have thesame amount of calories or more calories than the full fat versions. They also often have added sugar, starch, or salt, to make up for flavor that was removed with the fat. Find a way of tracking calories that works for you. Get creative. Try different apps or programs ifwriting down calories does not work for you. What are some portion control tips? Know how many calories are in a serving. This will help you know how many servings of a certain food you can have. Use a measuring cup to measure serving sizes. You could also try weighing out portions on a kitchenscale. With time, you will be able to estimate serving sizes for some foods. Take some time to put servings of different foods on your favorite plates, bowls, and cups so you know what a serving looks like. Try not to eat straight from a bag or box. Doing this can lead to overeating. Put the amount you would like to eat in a cup or on a plate to make sure you are eating the right portion. Use smaller plates, glasses, and bowls to prevent overeating. Try not to multitask (for example, watch TV or use your computer) while eating. If it is time to eat, sit down at a table and enjoy your food. This will help you to know when you are full. It will also help you to be aware of what you are eating and how much you are eating. What are tips for following this plan? Reading food labels Check the calorie count compared to the serving size. The serving size may be smaller than what youare used to eating. Check the source of the calories. Make sure the food you are eating is high in vitamins and proteinand low in saturated and trans fats. Shopping Read nutrition labels while you shop. This will help you make healthy decisions before you decide to purchase your food. Make a grocery list and stick to it. Cooking Try to cook your favorite foods in a healthier way. For example, try baking instead of frying. Use low-fat dairy products. Meal planning Use more fruits and vegetables. Half of your plate should be fruits and vegetables. Include lean proteins like poultry and fish. How do I count calories when eating out? Ask for smaller portion sizes. Consider sharing an entree and sides instead of getting your own entree. If you get your own entree, eat only half. Ask for a box at the beginning of your meal and put the rest of your entree in it so you are not tempted to eat it. If calories are listed on the menu, choose the lower calorie options. Choose dishes that include vegetables, fruits, whole grains, low-fat dairy products, and lean protein. Choose items that are boiled, broiled, grilled, or steamed. Stay away from items that are buttered,battered, fried, or served with cream sauce. Items labeled crispy are usually fried, unless stated otherwise. Choose water, low-fat milk, unsweetened iced tea, or other drinks without added sugar. If you want an alcoholic beverage, choose a lower calorie option such as a glass of wine or light beer. Ask for dressings, sauces, and syrups on the side. These are usually high in calories, so you should limit the amount you eat. If you want a salad, choose a garden salad and ask for grilled meats. Avoid extra toppings like elizabeth, cheese, or fried items. Ask for the dressing on the side, or ask for olive oil and vinegar or lemon to use as dressing. Estimate how many servings of a food you are given. For example, a serving of cooked rice is cup orabout the size of half a baseball. Knowing serving sizes will help you be aware of how much food you are eating at restaurants. The list below tells you how big or small some common portion sizes arebased on everyday objects: ?1 oz 4 stacked dice. ?3 oz 1 deck of cards. ?1 tsp 1 . ?1 Tbsp a ping-pong ball. ?2 Tbsp 1 ping-pong ball. ? cup baseball. ?1 cup 1 baseball. Summary Calorie counting means keeping track of how many calories you eat and drink each day. If you eat fewer calories than your body needs, you should lose weight. A healthy amount of weight to lose per week is usually 1 2 lb (0.5 0.9 kg). This usually means reducing your daily calorie intake by 500 750 calories. The number of calories in a food can be found on a Nutrition Facts label. If a food does not have aNutrition Facts label, try to look up the calories online or ask your dietitian for help. Use your calories on foods and drinks that will fill you up, and not on foods and drinks that will leave you hungry. Use smaller plates, glasses, and bowls to prevent overeating. This information is not intended to replace advice given to you by your health care provider. Make sure you discuss any questions you have with your health care provider. Document Released: 04/19/2006 Document Revised: 01/06/2019 Document Reviewed: 03/19/2017 [email or web address] Patient Education 2020 [employer]. Follow Up Care 06/10/2022 11:44:43 With:Alec XIE, Jacqui Nieves URL, URO Address: When:Within 6 Month(s) [facility] Chief Complaint: Patient here for 3 mo follow up CHF and afib. She was started on spironolactone at last apt in Apr 2022 by Linette Sanchez CNP. Had labs a few days after that. Denies chest pain and palpitations. Denies lightheadedness and bleeding on Eliquis. HPI: Martin was originally seen by [place] [facility] during her admission to [facility] at the beginning of March,. She was admitted for acute on chronic HFpEF and acute on chronic respiratory failure. She was diuresed and discharged home. We recommended adding spironolactone to her HFpEF regimen, however, it appears this was not initiated at discharge. She was also found to have new onset a.fib and she was started on anticoagulation. Since we saw her, she has been admitted on 2 occasions. 1st occasion for seizure and 2nd for UTI. 04/13/2022 Today she was just discharged from [facility] where she was admitted for UTI. She states she has been feeling well from a fluid standpoint. Denies issues with worsening dyspnea, weight gain, leg swelling, orthopnea, PND, etc. Cardiology ROS: Review of Systems Cardiovascular: Positive for dyspnea on exertion and leg swelling. Respiratory: Positive for cough and shortness of breath. Musculoskeletal: Positive for muscle weakness. Neurological: Positive for seizures (hx of). All other systems reviewed and are negative. Past Medical History She has no past medical history on file. Surgical History She has no past surgical history on file. Social History She reports that she has been smoking cigarettes. She has been smoking an average of .5 packs per day. She has never used smokeless tobacco. She reports current alcohol use. No history on file for drug use. Family History Family History Problem Relation Name Age of Onset Stroke Mother Hypertension Mother Heart attack Father Hypertension Sister Heart attack Sister Heart attack Brother Allergies Naproxen sodium Medications Current Outpatient Medications: albuterol 90 mcg/actuation inhaler, Inhale 2 puffs every 4 (four) hours if needed., Disp: , Rfl: ALPRAZolam (Xanax) 1 mg tablet, TAKE 1 TABLET BY MOUTH THREE TIMES DAILY FOR 30 DAYS, Disp: , Rfl: bumetanide (Bumex) 1 mg tablet, TAKE 1 TABLET BY MOUTH BEFORE BREAKFAST, Disp: , Rfl: dulaglutide (Trulicity) 1.5 mg/0.5 mL pen injector, Inject 0.5 mL every week by subcutaneous route., Disp: , Rfl: Eliquis 5 mg tablet, Take 5 mg by mouth in the morning and at bedtime., Disp: , Rfl: FeroSuL 325 mg (65 mg iron) tablet, Take 1 tablet by mouth in the morning and at bedtime., Disp: , Rfl: FLUoxetine (PROzac) 40 mg capsule, TAKE 1 CAPSULE BY MOUTH ONCE DAILY IN THE MORNING, Disp: , Rfl: magnesium oxide (Mag-Ox) 400 mg (241.3 mg magnesium) tablet, Take 1 tablet by mouth with breakfast and with evening meal., Disp: , Rfl: metoprolol tartrate (Lopressor) 50 mg tablet, in the morning and at bedtime., Disp: , Rfl: omeprazole (PriLOSEC) [address] capsule, Take 40 mg by mouth in the morning and at bedtime., Disp: , Rfl: Rexulti 2 mg tablet, Take 1 tablet by mouth in the morning and at bedtime., Disp: , Rfl: spironolactone (Aldactone) 25 mg tablet, Take 0.5 tablets (12.5 mg) by mouth in the morning., Disp: 15 tablet, Rfl: 11 Last Recorded Vitals BP 97/58 (BP Location: Left arm, Patient Position: Sitting) Pulse 62 Ht 1.524 m (5') SpO2 95% Comment: on 2L O2 BMI 30.66 kg/m??? Physical Examination: GENERAL: alert and oriented x3, well developed, in no acute distress. HEAD: atraumatic, normocephalic. EYES: LIZZIE, EOMI. NECK: trachea midline, no JVD present, no carotid bruits present. CARDIAC: S1, S2 present. RRR. II/ Harsh ejection systolic murmur heard best over the right second intercostal space RESPIRATORY: CTAB, no increased effort of breathing, no rales, rhonchi, or wheezing. ABDOMEN: soft, nontender, nondistended. EXTREMITIES: no lower extremity edema, peripheral pulses are 2+ bilaterally. No rash/skin discoloration present. NEURO: strength/sensation equal and symmetric in bilateral upper and lower extremities. PSYCH: appropriate mood, affect, and judgement. Investigations: Echocardiogram 08/2021: Global left ventricular systolic function is normal. EF is 60 to 65%. Grade 2 diastolic dysfunction. Moderate aortic valve stenosis. Mild tricuspid regurgitation. Mildly elevated right-sided pressures. Assessment: Heart failure with preserved ejection fraction (HFrEF) Tachycardia Hypertension Paroxysmal atrial fibrillation; [id number] - 4 (age, female, HTN, HF) - she requires long-term anticoagulation for stroke prophylaxis. She denies bleeding issues. Continue Eliquis 5mg BID. Nonrheumatic aortic valve stenosis; moderate on echocardiogram 08/2021 Benign hypertensive kidney disease with chronic kidney disease stage I through stage IV Plan: The patient's daughter tells me that her mother's heart rate is typical (more content not included)...[facility]02-08-2023 Hospital Discharge instructions Patient Education 06/10/2022 10:53:36 Hematuria, Adult Hematuria, Adult Hematuria is blood in the urine. Blood may be visible in the urine, or it may be identified with a test. This condition can be caused by infections of the bladder, urethra, kidney, or prostate. Otherpossible causes include: Kidney stones. Cancer of the urinary tract. Too much calcium in the urine. Conditions that are passed from parent to child (inherited conditions). Exercise that requires a lot of energy. Infections can usually be treated with medicine, and a kidney stone usually will pass through your urine. If neither of these is the cause of your hematuria, more tests may be needed to identify the cause of your symptoms. It is very important to tell your health care provider about any blood in your urine, even if it ispainless or the blood stops without treatment. Blood in the urine, when it happens and then stops and then happens again, can be a symptom of a very serious condition, including cancer. There is no pain in the initial stages of many urinary cancers. Follow these instructions at home: Medicines Take qynl-lse-uvybavq and prescription medicines only as told by your health care provider. If you were prescribed an antibiotic medicine, take it as told by your health care provider. Do notstop taking the antibiotic even if you start to feel better. Eating and drinking Drink enough fluid to keep your urine clear or pale yellow. It is recommended that you drink 3 4 quarts (2.8 3.8 L) a day. If you have been diagnosed with an infection, it is recommended that you drink cranberry juice in addition to large amounts of water. Avoid caffeine, tea, and carbonated beverages. These tend to irritate the bladder. Avoid alcohol because it may irritate the prostate (men). General instructions If you have been diagnosed with a kidney stone, follow your health care provider's instructions about straining your urine to catch the stone. Empty your bladder often. Avoid holding urine for long periods of time. If you are female: ?After a bowel movement, wipe from front to back and use each piece of toilet paper only once. ?Empty your bladder before and after sex. Pay attention to any changes in your symptoms. Tell your health care provider about any changes or any new symptoms. It is your responsibility to get your test results. Ask your health care provider, or the department performing the test, when your results will be ready. Keep all follow-up visits as told by your health care provider. This is important. Contact a health care provider if: You develop back pain. You have a fever. You have nausea or vomiting. Your symptoms do not improve after 3 days. Your symptoms get worse. Get help right away if: You develop severe vomiting and are unable take medicine without vomiting. You develop severe pain in your back or abdomen even though you are taking medicine. You pass a large amount of blood in your urine. You pass blood clots in your urine. You feel very weak or like you might faint. You faint. Summary Hematuria is blood in the urine. It has many possible causes. It is very important that you tell your health care provider about any blood in your urine, even ifit is painless or the blood stops without treatment. Take jadx-nxa-fguggal and prescription medicines only as told by your health care provider. Drink enough fluid to keep your urine clear or pale yellow. This information is not intended to replace advice given to you by your health care provider. Make sure you discuss any questions you have with your health care provider. Document Released: 04/19/2006 Document Revised: 09/13/2019 Document Reviewed: 05/22/2017 [email or web address] Patient Education 2020 [email or web address] Follow Up Care 05/06/2022 14:07:41 With:Alec XIE, CARLY [place], [facility] Address: When: Unknown [facility] 12-12-2022 NotePatient here for follow up [facility] for CHF. She was seen as inpatient consult on 03/06/2022 by Madi Sanchez CNP. She was just discharged from [facility] again today for UTI and pneumonia. She will be having iron infusions set up soon for anemia. Denies chest pain and bleeding on Eliquis. Review of Systems Cardiovascular: Positive for dyspnea on exertion. Respiratory: Positive for shortness of breath. Musculoskeletal: Positive for muscle weakness. Neurological: Positive for seizures (hx of). All other systems reviewed and are negative.[facility] 04-13-2022 NoteCardiovascular Medicine [facility] SUBJECTIVE Chief Complaint Patient presents with Congestive Heart Failure Atrial Fibrillation Martin Hagen is a 71 y.o. female here for follow-up. HPI Martin was originally seen by [facility] during her admission to [facility] at the beginning of March,. She was admitted for acute on chronic HFpEF and acute on chronic respiratory failure. She was diuresed and discharged home. We recommended adding spironolactone to her HFpEF regimen, however, it appears this was not initiated at discharge. She was also found to have new onset a.fib and she was started on anticoagulation. Since we saw her, she has been admitted on 2 occasions. 1st occasion for seizure and 2nd for UTI. 04/13/2022 Today she was just discharged from [facility] where she was admitted for UTI. She states she has been feeling well from a fluid standpoint. Denies issues with worsening dyspnea, weight gain, leg swelling, orthopnea, PND, etc. Patient Active Problem List Diagnosis Acute sinusitis Osteoarthritis Gastroesophageal reflux disease Chronic constipation with overflow Chronic obstructive lung disease (CMS/HCC) Congestive heart failure (CMS/HCC) Constipation Cough Depressive disorder Diabetes (CMS/HCC) Fatty liver Gastroparesis Dysphagia Generalized anxiety disorder Heartburn History of colonic polyps Hypertensive disorder Incisional hernia Loose stools Lower abdominal pain Mixed hyperlipidemia Morbid obesity (CMS/HCC) Muscle spasm Nonalcoholic fatty liver disease Obstructive sleep apnea syndrome Panic attacks Polyp of colon Psoriatic arthritis (CMS/HCC) Paroxysmal atrial fibrillation (CMS/HCC) Nonrheumatic aortic valve stenosis Benign hypertensive kidney disease with chronic kidney disease No past medical history on file. Family History Problem Relation Name Age of Onset Stroke Mother Hypertension Mother Heart attack Father Hypertension Sister Heart attack Sister Heart attack Brother Social History Tobacco Use Smoking status: Every Day Packs/day: 0.50 Types: Cigarettes Smokeless tobacco: Never Substance Use Topics Alcohol use: Yes Comment: occasional Allergies Allergen Reactions Naproxen Sodium Other ROS Review of Systems Cardiovascular: Positive for dyspnea on exertion. Respiratory: Positive for shortness of breath. Musculoskeletal: Positive for muscle weakness. Neurological: Positive for seizures (hx of). All other systems reviewed and are negative. OBJECTIVE Visit Vitals BP 147/75 (BP Location: Left arm, Patient Position: Sitting) Pulse 81 Ht 1.524 m (5') Wt 71.2 kg (157 lb) SpO2 93% Comment: on 2-3L O2 BMI 30.66 kg/m??? Smoking Status Every Day BSA 1.74 m??? Medications: Current Outpatient Medications: albuterol 90 mcg/actuation inhaler, Inhale 2 puffs every 4 (four) hours if needed., Disp: , Rfl: ALPRAZolam (Xanax) 1 mg tablet, TAKE 1 TABLET BY MOUTH THREE TIMES DAILY FOR 30 DAYS, Disp: , Rfl: bumetanide (Bumex) 1 mg tablet, TAKE 1 TABLET BY MOUTH BEFORE BREAKFAST, Disp: , Rfl: dulaglutide (Trulicity) 1.5 mg/0.5 mL pen injector, Inject 0.5 mL every week by subcutaneous route., Disp: , Rfl: Eliquis 5 mg tablet, Take 5 mg by mouth in the morning and at bedtime., Disp: , Rfl: FeroSuL 325 mg (65 mg iron) tablet, Take 1 tablet by mouth in the morning and at bedtime., Disp: , Rfl: FLUoxetine (PROzac) 40 mg capsule, TAKE 1 CAPSULE BY MOUTH ONCE DAILY IN THE MORNING, Disp: , Rfl: magnesium oxide (Mag-Ox) 400 mg (241.3 mg magnesium) tablet, Take 1 tablet by mouth with breakfast and with evening meal., Disp: , Rfl: metoprolol tartrate (Lopressor) 50 mg tablet, in the morning and at bedtime., Disp: , Rfl: omeprazole (PriLOSEC) [address] capsule, Take 40 mg by mouth in the morning and at bedtime., Disp: , Rfl: Rexulti 2 mg tablet, Take 1 tablet by mouth in the morning and at bedtime., Disp: , Rfl: spironolactone (Aldactone) 25 mg tablet, Take 0.5 tablets (12.5 mg) by mouth in the morning., Disp: 15 tablet, Rfl: 11 Physical Exam Vitals reviewed. Constitutional: Appearance: Normal appearance. She is obese. HENT: Head: Normocephalic and atraumatic. Right Ear: External ear normal. Left Ear: External ear normal. Eyes: Extraocular Movements: Extraocular movements intact. Conjunctiva/sclera: Conjunctivae normal. Pupils: Pupils are equal, round, and reactive to light. Neck: Vascular: No carotid bruit. Comments: No visible JVD Cardiovascular: Rate and Rhythm: Normal rate and regular rhythm. Pulses: Normal pulses. Heart sounds: Normal heart sounds. Pulmonary: Effort: Pulmonary effort is normal. Breath sounds: Normal breath sounds. Abdominal: General: Bowel sounds are normal. Palpations: Abdomen is soft. Musculoskeletal: Cervical back: Neck supple. Right lower leg: No edema. Left lower leg: No edema. Skin: General: Skin is warm and dry. (more content not included)...[facility]10-17-2022 Hospital Discharge instructions Patient Education 02/16/2022 13:00:15 Haddad's Esophagus Haddad's Esophagus Haddad's esophagus occurs when the tissue that lines the esophagus changes or becomes damaged. Theesophagus is the tube that carries food from the throat to the stomach. With Haddad's esophagus, the cells that line the esophagus are replaced by cells that are similar to the lining of the intestines (intestinal metaplasia). Haddad's esophagus itself may not cause any symptoms. However, many people who have Haddad's esophagus also have gastroesophageal reflux disease (GERD), which may cause symptoms such as heartburn. Over time, a few people with this condition may develop cancer of the esophagus. Treatment may include medicines, procedures to destroy the abnormal cells, or surgery. What are the causes? The exact cause of this condition is not known. In some cases, the condition develops from damage to the lining of the esophagus caused by GERD. GERD occurs when stomach acids flow up from the stomach into the esophagus. Frequent symptoms of GERD may cause intestinal metaplasia or cause cell changes (dysplasia). What increases the risk? You are more likely to develop this condition if you: Have GERD. Are male. Are . Are obese. Are older than 50. Have a hiatal hernia. This is a condition in which part of your stomach bulges into your chest. Smoke. What are the signs or symptoms? People with Haddad's esophagus often have no symptoms. However, many people with this condition also have GERD. Symptoms of GERD may include: Heartburn. Difficulty swallowing. Dry cough. How is this diagnosed? This condition may be diagnosed based on: Results of an upper gastrointestinal endoscopy. For this exam, a thin, flexible tube with a light and a camera on the end (endoscope) is passed down your esophagus. Your health care provider can viewthe inside of your esophagus during this procedure. Results of a biopsy. For this procedure, several tissue samples are removed (biopsy) from your esophagus. They are then checked for intestinal metaplasia or dysplasia. How is this treated? Treatment for this condition may include: Medicines (proton pump inhibitors, or PPIs) to decrease or stop GERD. Periodic endoscopic exams to make sure that cancer is not developing. A procedure or surgery for dysplasia. This may include: ?Removal or destruction of abnormal cells. ?Removal of part of the esophagus (esophagectomy). Follow these instructions at home: Eating and drinking Eat more fruits and vegetables. Avoid fatty foods. Eat small, frequent meals instead of large meals. Avoid foods that cause heartburn. These foods include: ?Coffee and alcoholic drinks. ?Tomatoes and foods made with tomatoes. ?Leith-Hatfield or spicy foods. ?Chocolate and peppermint. Do not drink alcohol. General instructions Take ujvh-tnl-apltfty and prescription medicines only as told by your health care provider. Do not use any products that contain nicotine or tobacco, such as cigarettes and e-cigarettes. If you need help quitting, ask your health care provider. If you are being treated for GERD, make sure you take medicines and follow all instructions as toldby your health care provider. Keep all follow-up visits as told by your health care provider. This is important. Contact a health care provider if: You have heartburn or GERD symptoms. You have difficulty swallowing. Get help right away if: You have chest pain. You are unable to swallow. You vomit blood or material that looks like coffee grounds. Your stool (feces) is bright red or dark. Summary Haddad's esophagus occurs when the tissue that lines the esophagus changes or becomes damaged. Haddad's esophagus may be diagnosed with an upper gastrointestinal endoscopy and a biopsy. Treatment may include medicines, procedures to remove abnormal cells, or surgery. Follow your health care provider's instructions about what to eat and drink, what medicines to take, and when to call for help. 02/16/2022 13:00:15 Diverticulosis [facility] (Custom) Diverticulosis Many people have small pouches in their colon called diverticulum. The diverticulum bulge outward through weak spots in the colon. You could have one or more of these pouches in the colon. The condition of having these pouches in the colon is called diverticulosis or diverticular disease. Diverticulosis is usually diagnosed by tests to evaluate something else. For example, you may have had a colonoscopy to screen for colon cancer when the diverticulosis was found. Most people with diverticulosis do not have any discomfort or problems. If symptoms develop, they may include mild cramps, bloating, and constipation. A complication of this condition is called diverticulitis. This is when the diverticulum become inflamed and infected. How to treat diverticulosis: Increasing the amount of fiber in the diet may reduce symptoms of diverticulosis and prevent complications such as diverticulitis (infected diverticuli). Fiber keeps stool soft and lowers pressure inside the colon so that bowel contents can move througheasily. You should eat 20 to 35 grams of fiber each day. The table below shows the amount of fiber in some foods that you can easily add to your diet. Adding fiber slowly may decrease the bloating and fullness sometimes felt with an immediate high fiber diet. The doctor may also recommend taking a fiber product such as Citrucel or Metamucil once a day. In the past people with diverticulosis were to avoid nuts, corn, and seeds. This has not been foundto be true. If you find that certain foods create cramping or bloating, avoid that food. Foods high in fiber include: Fresh fruits, fresh vegetables, legumes (beans), whole wheat bread, bran muffins or cereal, and nuts. See the table below for examples of high fiber foods. Remember, your goal is 20- 35 grams per day. Amount of fiber in different foods Food Serving Grams of fiber Fruits Apple (with skin) 1 medium apple 4.4 Banana 1 medium banana 3.1 Oranges 1 orange 3.1 Prunes 1 cup, pitted 12.4 Juices Apple, unsweetened, w/added ascorbic acid 1 cup 0.5 Grapefruit, white, canned, sweetened 1 cup 0.2 Grape, unsweetened, w/added ascorbic acid 1 cup 0.5 Ama 1 cup 0.7 Vegetables Cooked Green beans 1 cup 4.0 Carrots 1/2 cup sliced 2.3 Peas 1 cup 8.8 Potato (baked, with skin) 1 medium potato 3.8 Raw [place] (with peel) 1 cucumber 1.5 Lettuce 1 cup shredded 0.5 Tomato 1 medium tomato 1.5 Spinach 1 cup 0.7 Legumes Baked beans, canned, no salt added 1 cup 13.9 Kidney beans, canned 1 cup 13.6 Bryant beans, canned 1 cup 11.6 Lentils, boiled 1 cup 15.6 Breads, pastas, flours Bran muffins 1 medium muffin 5.2 Oatmeal, cooked 1 cup 4.0 White bread 1 slice 0.6 Whole-wheat bread 1 slice 1.9 Pasta and rice, cooked Macaroni 1 cup 2.5 Rice, brown 1 cup 3.5 Rice, white 1 cup 0.6 Spaghetti (regular) 1 cup 2.5 Nuts Almonds 1/2 cup 8.7 Peanuts 1/2 cup 7.9 Chart from [facility] 2012. 02/16/2022 13:00:15 Colonoscopy, Care After Surgery [place] (Custom) Colonoscopy Care After Surgery Please read the instructions outlined below and refer to this sheet in the next few weeks. These discharge instructions provide you with general information on caring for yourself [facility] Your doctor may also give you specific instructions. While your treatment has been planned according to the most current medical practices available, unavoidable complications occasionally occur. If you have any problems or questions after discharge, please call your doctor. ACTIVITY You may resume your regular activity, but move at a slower pace for the next 24 hours. Take frequent rest periods for the next 24 hours. Walking will help get rid of the air and reduce the bloated feeling in your abdomen (belly). No driving for 24 hours (because of the anesthesia (medicine) used during the test). You may shower. Do not sign any important legal documents or operate any machinery for 24 hours (because of the anesthesia used during the test). NUTRITION Drink plenty of fluids. You may resume your normal diet as instructed by your doctor. Begin with a light meal and progress to your normal diet. Heavy or fried foods are harder to digestand may make you feel nauseated (sick to your stomach). Avoid alcoholic beverages for 24 hours or as instructed. MEDICATIONS You may resume your normal medications unless your doctor tells you otherwise. WHAT YOU CAN EXPECT TODAY Some feelings of bloating in the abdomen. Passage of more gas than usual. Spotting of blood in your stool or on the toilet paper. FOLLOW-UP Your doctor will discuss the results of your test with you. SEEK IMMEDIATE MEDICAL ATTENTION IF: There is more than a spotting of blood in your stool. There is abdominal distention (your abdomen is swollen). There is vomiting. You have a temperature over 101.5 F. There is abdominal pain or discomfort that is severe or gets worse throughout the day. Follow Up Care 12/31/2021 15:48:46 With:Kylah BELL Address: [address] [place] [address]. [address] [place] [address] [employer] (1) When: Unknown Comments:Call for any problems.Office will call to schedule follow up appointment (appointment for 1-2 weeksfrom today) [facility]10-17-2022 Evaluation + Plan noteExtracted from: Title:Anesthesia post op endo Author:Shawn Huddleston MD Date:02/16/22 Plan Transfer/ Discharge: Patient can be discharged from PACU when criteria met. Condition good. Extracted from: Title:Anesthesia Pre-Op endo Author:Mine Huddleston MD Date:02/16/22 Plan [place] [employer] Anesthesiologists (ASA) physical status classification: Class III. Anesthetic Preoperative Plan Anesthesia: General. . Anesthetic plan, risks, benefits, and alternatives discussed with the patient and/or family. Patient verbalized understanding. Pt agrees with anesthetic plan and accepts all risks including but not limited to; Bleeding, infection(including covid-19), nerve injury, dental injury, eye injury, headache, low blood pressure, serious problems with the heart and lungs, allergic reactions, and .. Future Scheduled Tests Laboratory* Fecal WBC Lactoferrin 12/31/21 * Giardia lamblia, Direct Detection EIA 12/31/21 * O & P Exam, Routine 12/31/21 * Clostridium difficile by PCR 12/31/21 * Enteric Panel by PCR 12/31/21 * CBC w/ Auto Diff 12/31/21 * Comprehensive Metabolic Panel 12/31/21 [facility]08-31-2022 Hospital Discharge instructions Patient Education 12/31/2021 14:40:35 Haddad's Esophagus Haddad's Esophagus Haddad's esophagus occurs when the tissue that lines the esophagus changes or becomes damaged. Theesophagus is the tube that carries food from the throat to the stomach. With Haddad's esophagus, the cells that line the esophagus are replaced by cells that are similar to the lining of the intestines (intestinal metaplasia). Haddad's esophagus itself may not cause any symptoms. However, many people who have Haddad's esophagus also have gastroesophageal reflux disease (GERD), which may cause symptoms such as heartburn. Over time, a few people with this condition may develop cancer of the esophagus. Treatment may include medicines, procedures to destroy the abnormal cells, or surgery. What are the causes? The exact cause of this condition is not known. In some cases, the condition develops from damage to the lining of the esophagus caused by GERD. GERD occurs when stomach acids flow up from the stomach into the esophagus. Frequent symptoms of GERD may cause intestinal metaplasia or cause cell changes (dysplasia). What increases the risk? You are more likely to develop this condition if you: Have GERD. Are male. Are . Are obese. Are older than 50. Have a hiatal hernia. This is a condition in which part of your stomach bulges into your chest. Smoke. What are the signs or symptoms? People with Haddad's esophagus often have no symptoms. However, many people with this condition also have GERD. Symptoms of GERD may include: Heartburn. Difficulty swallowing. Dry cough. How is this diagnosed? This condition may be diagnosed based on: Results of an upper gastrointestinal endoscopy. For this exam, a thin, flexible tube with a light and a camera on the end (endoscope) is passed down your esophagus. Your health care provider can viewthe inside of your esophagus during this procedure. Results of a biopsy. For this procedure, several tissue samples are removed (biopsy) from your esophagus. They are then checked for intestinal metaplasia or dysplasia. How is this treated? Treatment for this condition may include: Medicines (proton pump inhibitors, or PPIs) to decrease or stop GERD. Periodic endoscopic exams to make sure that cancer is not developing. A procedure or surgery for dysplasia. This may include: ?Removal or destruction of abnormal cells. ?Removal of part of the esophagus (esophagectomy). Follow these instructions at home: Eating and drinking Eat more fruits and vegetables. Avoid fatty foods. Eat small, frequent meals instead of large meals. Avoid foods that cause heartburn. These foods include: ?Coffee and alcoholic drinks. ?Tomatoes and foods made with tomatoes. ?Leith-Hatfield or spicy foods. ?Chocolate and peppermint. Do not drink alcohol. General instructions Take fxdy-pkr-ajeaxya and prescription medicines only as told by your health care provider. Do not use any products that contain nicotine or tobacco, such as cigarettes and e-cigarettes. If you need help quitting, ask your health care provider. If you are being treated for GERD, make sure you take medicines and follow all instructions as toldby your health care provider. Keep all follow-up visits as told by your health care provider. This is important. Contact a health care provider if: You have heartburn or GERD symptoms. You have difficulty swallowing. Get help right away if: You have chest pain. You are unable to swallow. You vomit blood or material that looks like coffee grounds. Your stool (feces) is bright red or dark. Summary Haddad's esophagus occurs when the tissue that lines the esophagus changes or becomes damaged. Haddad's esophagus may be diagnosed with an upper gastrointestinal endoscopy and a biopsy. Treatment may include medicines, procedures to remove abnormal cells, or surgery. Follow your health care provider's instructions about what to eat and drink, what medicines to take, and when to call for help. This information is not intended to replace advice given to you by your health care provider. Make sure you discuss any questions you have with your health care provider. Document Released: 07/09/2004 Document Revised: 08/15/2018 Document Reviewed: 08/15/2018 [employer] Patient Education 2020 [employer]. Follow Up Care 11/24/2021 14:47:03 With:Lani Wasserman CNP Address: When:1 to 2 weeks [facility] 08-13-2022 Evaluation note* Encounter Date Diagnosis Assessment Notes Treatment Notes Treatment Clinical Notes Dec, Swelling of right eye (ICD-10 - H57.89) Discussed diagnosis with patient. Negative Fluroscein test for corneal abrasion. Advised patient that physical exam is consistent with allergy or contact with irritant. Provided Kenalog injection today in office to help with swelling. Will send in rx of Polytrim for bacterial coverage. Encouraged use of OTC Zyrtec/Claritin. Advised patient to follow up with eye doctor Wednesday if symptoms do not improve. Immediate evaluation in ER for warning signs/symptoms as discussed. Patient verbalizes understanding and is agreeable with treatment plan [employer] Other 12-01-2021 History general Narrative - Reported* Type Description Date Medical History Macular degeneration bilateral e yes Medical History Continuous oxygen 2L/NC Medical History CHF- Does not follow with Cardio logy, managed by PCP Dr. Lora Medical History COPD Medical History Hx of COVID 04/2021 [employer] Other 12-01-2021 History general Narrative - Reported* Type Description Date Medical History Macular degeneration bilateral e yes Medical History Continuous oxygen 2L/NC Medical History CHF- Does not follow with Cardiology, managed by PCP Dr. Lora Medical History COPD Medical History Hx of COVID 04/2021 Medical History OSTEOPORESIS Surgical History GALL BLADDER Surgical History HERNIA REPAIR Surgical History BOWEL REDUCTION Surgical History HYSTERECTOMY 1994 Hospitalization History SEE ABOVE [employer] Other Consult note Author Rey Arriaga [facility] November 19, 2022 2:59pm Note Date/Time November 19, 2022 2:59 pm [facility] [address] [place] [address] Cardiology Consult Note Signed Patient: Martin Hagen MR#: [id number] : 1950 Acct:[id number] Age/Sex: 71 / F Adm Date: 3 Loc: Room: 2P6925-5 Type: ADM IN Attending Dr: Gina Poole DO Copies to: MD Gina Arambula II, DO William Patrick McGuinn, MD~ Cardiology HPI History of Present Illness Consult Date: 11/19/22 Reason for Consult: Congestive heart failure HPI: Ms. Hagen is a 71 year old female seen for the above She is an individual who presents with complaints of shortness of breath. She has some chronic underlying shortness of breath which she is attributed to long-term COPD. She is on home oxygen and treated accordingly. She states, though, recently she has been more more short of breath and for this reason she came to the hospital She was found to have normal systolic function but moderately severe aortic stenosis. Also severe pulmonary hypertension. She denies a known history of either. She also denies a history of anginal symptoms. She is a diabetic with hypertension previous smoking history and there is a family history of coronary disease. Despite this she is never had manifestations of coronary disease, per se. I know she is on Eliquis for unknown reasons and this will be discussed later. Review of Systems Review of Systems All other systems reviewed & are negative unless noted below or in HPI Constitutional Constitutional: Reports system reviewed and no additional complaints, except as documented Eyes Eyes: Reports system reviewed and no additional complaints, except as documented ENT Ears, Nose, Mouth, and Throat: Reports system reviewed and no additional complaints, except as documented Cardiovascular Cardiovascular: Reports as per HPI Respiratory Respiratory: Reports system reviewed and no additional complaints, except as documented Gastrointestinal Gastrointestinal: Reports system reviewed and no additional complaints, except as documented Genitourinary Genitourinary: Reports system reviewed and no additional complaints, except as documented Musculoskeletal Musculoskeletal: Reports system reviewed and no additional complaints, except asdocumented Integumentary/Breasts Skin/Breast: Reports system reviewed and no additional complaints, except as documented Neurologic Neurologic: Reports system reviewed and no additional complaints, except as documented Psychiatric Psychiatric: Reports system reviewed and no additional complaints, except as documented Endocrine Endocrine: Reports system reviewed and no additional complaints, except as documented Hematologic/Lymphatic Hematologic/Lymphatic: Reports system reviewed and no additional complaints, except as documented Allergic/Immunologic Allergic/Immunologic: Reports system reviewed and no additional complaints, except as documented PMFSH Vaccinated for COVID-19?: No Medical History (Updated 11/19/22 @ 14:58 by Rey Arriaga MD) Afib Anxiety Arthritis Bronchial asthma Bronchial spasms CHF (congestive heart failure) Chronic low back pain COPD (chronic obstructive pulmonary disease) Depression Diabetes Glaucoma, right eye Hyperlipidemia Macular degeneration of both eyes Sleep apnea treated with continuous positive airway pressure (CPAP) Family History Brother Myocardial infarction Father Myocardial infarction Mother History of open heart surgery COPD (chronic obstructive pulmonary disease) Emphysema of lung Sister Stroke Hypertension Sister Stroke Hypertension Sister Stroke Social History Smoking Status: Current every day smoker Tobacco Type: cigarettes Substance Use Type: None Meds Medications and Allergies Allergies No Known Allergies Allergy (Verified 11/18/22 16:16) Home Medications albuterol sulfate 90 mcg/actuation aerosol inhaler (Ventolin HFA) inhalation 11/18/22 [History] alprazolam 1 mg tablet 1 mg PO BID PRN Anxiety 11/18/22 [History Confirmed 11/18/22] ammonium lactate 12 % lotion topical 11/18/22 [History] apixaban 5 mg tablet (Eliquis) 5 mg PO DAILY 11/18/22 [History Confirmed 11/18/22] brexpiprazole 1 mg tablet (Rexulti) 1 mg PO QHS 11/18/22 [History Confirmed 11/18/22] bumetanide 2 mg tablet 1 mg PO QHS 11/18/22 [History Confirmed 11/18/22] bumetanide 2 mg tablet 2 mg PO QAM 11/18/22 [History Confirmed 11/18/22] calcium carbonate 600 mg-vitamin D3 10 mcg (400 unit) tablet 400 tab PO BID 11/18/22 [History Confirmed 11/18/22] cyclobenzaprine 10 mg tablet 10 mg PO TID 11/18/22 [History Confirmed 11/18/22] dapagliflozin propanediol 10 mg tablet (Farxiga) 10 mg PO DAILY 11/18/22 [History Confirmed 11/18/22] dulaglutide 0.75 mg/0.5 mL subcutaneous pen injector (Trulicity) 0.75 mg subcut QWEEK 11/18/22 [History Confirmed 11/18/22] fluoxetine 40 mg capsule 40 mg PO DAILY 11/18/22 [History Confirmed 11/18/22] fluticasone 250 mcg-salmeterol 50 mcg/dose blistr powdr for inhalation (Advair Diskus) 2 inh inhalation QID 11/18/22 [History Confirmed 11/18/22] hydrocodone 5 mg-acetaminophen 325 mg tablet 1 tab PO 2XD PRN Pain 11/18/22 [History Confirmed 11/18/22] magnesium oxide 400 mg (241.3 mg magnesium) tablet 400 mg PO BID 11/18/22 [History Confirmed 11/18/22] metoprolol tartrate 50 mg tablet 50 mg PO BID 11/18/22 [History Confirmed 11/18/22] tizanidine 4 mg tablet 4 mg PO TID PRN Spasms 11/18/22 [History Confirmed 11/18/22] albuterol sulfate 2.5 mg/3 mL (0.083 %) solution for nebulization 2.5 mg inhalation Q6H 11/19/22 [History Confirmed 11/19/22] Exam Physical Exam Vital Signs: Temp Pulse Resp BP Pulse Ox O2 Del Method O2 Flow Rate 98.3 F 71 18 149/77 H 96 Nasal Cannula 4 11/19/22 11:25 11/19/22 11:25 11/19/22 11:25 11/19/22 11:25 11/19/22 11:25 11/19/22 11:25 11/19/22 11:25 HEENT Head: normal to inspection Ears: hearing grossly normal bilaterally Nose: external nose normal and nares normal Face and sinus: normal facial exam Mouth: oral mucosae normal and tongue normal Eyes Conjunctivae: conjunctivae normal Sclera: sclerae normal Neck Neck: normal visual inspection Carotids: normal carotid upstroke Lymphatic: no lymphadenopathy noted Chest Chest palpation & inspection: normal inspection of the chest Resp Effort & Inspection: normal respiratory effort Auscultation: clear to auscultation bilaterally Cardio Rate: regular rate Rhythm: regular rhythm Heart Sounds: S1 normal, S2 normal and murmur systolic III/ GI Inspection: normal to inspection Palpation: soft Skin General: no rashes or lesions noted Neuro General: patient alert, patient awake and patient oriented x3 Cognition: normal cognition Motor: muscle tone normal throughout Sensory Exam: no sensory deficits noted Results Labs 11/19/22 03:13 11/19/22 03:13 Lab results: Cardiac Enzymes 11/18/22 11/18/22 11/18/22 Range/Units 17:51 17:51 17:51 AST 15 (13-39) U/L Total Creatine Kinase 46 (30-223) U/L B-Natriuretic Peptide 2080.0 H (5-100) pg/mL 11/18/22 11/19/22 11/19/22 Range/Units 20:06 03:13 11:30 AST (13-39) U/L Total Creatine Kinase 44 35 31 (30-223) U/L B-Natriuretic Peptide (5-100) pg/mL CBC 11/18/22 11/19/22 Range/Units 17:51 03:13 RBC 2.98 L 2.93 L (3.60-5.00) X10E6/uL Hgb 8.7 L 8.5 L (11.8-15.4) g/dL Hct 26.8 L 26.7 L (34.0-46.4) % Plt Count 169 140 L (150-450) x10E3/uL Neut # (Auto) 4.7 4.1 (1.8-7.7) x10E3/uL Lymph # (Auto) 1.5 1.6 (1.00-4.8) x10E3/uL [place] # (Auto) 0.4 0.4 (0.0-0.8) x10E3/uL Eos # (Auto) 0.1 0.1 (0.0-0.45) x10E3/uL Baso # (Auto) 0.0 0.0 (0.0-0.2) x10E3/uL Comprehensive Metabolic Panel 11/18/22 11/18/22 11/19/22 Range/Units 17:51 17:51 03:13 Sodium 142 144 (136-145) mmol/L Potassium 5.2 H 4.9 (3.5-5.1) mmol/L Chloride 101 101 (98-107) mmol/L Carbon Dioxide 36.2 H 38.1 H (21.0-31.0) mmol/L BUN 29 H 28 H (7-25) mg/dL Creatinine 1.78 H 1.76 H (0.60-1.20) mg/dL Glucose 101 H 100 (70-100) mg/dL Calcium 8.1 L 8.1 L (8.6-10.3) mg/dL Direct Bilirubin 0.10 (0.03-0.18) mg/dL Indirect Bilirubin 0.3 mg/dL AST 15 (13-39) U/L ALT 10 (7-52) U/L Alkaline Phosphatase 54 (34-104) U/L Total Protein 6.6 (6.4-8.9) gm/dL Albumin 3.4 L (3.5-5.7) gm/dL Intake and Output 11/18/22 11/19/22 11/19/22 23:59 07:59 15:59 Intake Total 60 / 60 50 / 500 450 / 500 Output Total 300 / 300 150 / 150 Balance -240 / -240 50 / 350 300 / 350 Intake: Oral 60 / 60 50 / 500 450 / 500 Output: Urine 300 / 300 150 / 150 Other: # Voids 1 # Unmeasured Voids 1 1 4 # Bowel Movements 0 0 Weight 75.8 kg 76.6 kg Patient Weight 11/19/22 23:59 Weight 76.6 kg Lab 11/18/22 17:51 PT 17.6 H INR 1.5 APTT 35.1 A&P - Cardiology (1) Acute diastolic CHF (congestive heart failure), NYHA class 3: Assessment/Problem Details: Patient's symptoms and findings are most consistent with acute diastolic CHF. She has normal systolic function. More than likely it is on the basis of this and the aortic stenosis as noted below. Code(s): I50.31 - Acute diastolic (congestive) heart failure (2) Aortic stenosis: Assessment/Problem Details: At least moderately severe in nature. Previously she did not know she had this. Code(s): I35.0 - Nonrheumatic aortic (valve) stenosis (3) Pulmonary hypertension: Assessment/Problem Details: Patient denies a known history of pulmonary hypertension. She does acknowledge a history of COPD. Code(s): I27.20 - Pulmonary hypertension, unspecified Plan Continue home medication. Parenteral furosemide appears to be an acceptable intervention. I would add metolazone and follow chemistries daily. Patient will most likely require another 24 to 48 hours of inpatient hospital heart failure treatment. Documented By: Rey Arriaga MD [id number] Signed By: <Electronically signed by MD Rey Arriaga> 11/19/22 1459 [facility] Work Phone: Discharge summary Author Gina Poole [facility] November 21, 2022 3:38pm Note Date/Time November 21, 2022 3:39 pm [facility] [address] [place] [address] Discharge Summary Signed Patient: Martin Hagen MR#: [id number] : 1950 Acct:[id number] Age/Sex: 71 / F Adm Date: 3 Loc: 4 Room: [id number]: Gina Poole DO Copies to: MD Gina Arambula II, DO~ Providers Date of Discharge: 11/21/22 Discharging Provider: Gina Poole Primary Care Provider: Shawn Barber Consults: 11/19/22 11:55 Consult to Cardiology Routine Discharge Diagnosis (1) Aortic stenosis: (2) Pulmonary hypertension: (3) Acute diastolic CHF (congestive heart failure), NYHA class 3: Final Diagnosis Final Discharge Diagnosis: In addition to the above diagnoses: 4. Chronic kidney disease 5. Contraction alkalosis 6. Anemia of chronic inflammation 7. Anemia of chronic kidney disease 8. Diabetes mellitus type 2 Summary Hospital Course Hospital course: This patient is a 71-year-old female presented to the emergency department with complaints of worsening shortness of breath and peripheral edema on 11/18/2022. Symptoms have been worsening over the prior week and despite her chronic 3 L nasal cannula that she wears at home she began increasingly dyspneic. She was tachypneic and hypertensive on arrival with anemia noted hemoglobin 8.7. Mild hyperkalemia 5.2 with slight alkalosis, BUN and creatinine of 29/1.78. Brain atretic peptide level was elevated at 2079. The patient was admitted for IV diuresis with Lasix. Anemia remained stable and iron studies suggested anemia of chronic disease rather than true iron deficiency. Echocardiogram revealed preserved ejection fraction 60 to 65%, left atrial dilation as well as moderate to severe valvular aortic stenosis. Furthermore severe pulmonary hypertension was noted with RVSP of 84 mmHg. In light of these findings cardiology was consulted who recommended continued IV diuresis with Lasix and the initiation ofmetolazone. The patient did develop worsening contraction alkalosis. I attempted to dose her with acetazolamide however this order was unfortunately canceled and not completed. She will receive 1 dose of 250 mg IV acetazolamide prior to discharge. She does have some worsening contraction alkalosis on her labs this morning. I do not feel this needs to keep her in the hospital but do recommend that she follow-up with the labs ordered by cardiology as an outpatient to monitor kidney function. She can resume her previously prescribed2 mg a.m. and 1 mg p.m. Bumex at home in addition to low-dose 2.5 mg metolazone daily provided by cardiology. At this time she has no worsening shortness of breath and her peripheral edema has improved greatly. She will thus be discharged home with home health therapy with her PCP and cardiology as an outpatient. Physical Examination: GENERAL APPEARANCE: Alert, up in bed AAOx3 HEENT: NCAT, MMM NECK: Neck soft w/o masses, no JVD CARDIAC: Normal S1 and S2. No S3, S4 or murmurs.? Holosystolic murmur noted diffusely LUNGS: Clear to auscultation bilaterally. no wheeze/rhonchi/rales ABDOMEN: Positive bowel sounds. Soft, nontender. No guarding or signs of an acute abdomen MUSCULOSKELETAL: No joint erythema or tenderness. EXTREMITIES: No clubbing, cyanosis or 2+ pitting edema bilateral lower extremities PSYCHIATRIC: Appropriate mood and affect 35 minutes were spent coordinating the discharge of this patient. Time Spent with Patient Time spent providing/coordinating discharge services (# min): 35 Diagnostic Studies Completed and Pending Studies Pending studies at discharge: 11/22/22 05:00 Basic Metabolic Panel [CHEM] IN AM Complete Blood Count Auto Diff IN AM 11/23/22 05:00 Basic Metabolic Panel [CHEM] IN AM Complete Blood Count Auto Diff IN AM Labs on day of discharge: 11/21/22 11:59: POC Glucose 149 11/21/22 08:37: POC Glucose 118 11/21/22 04:47: PHA Creatinine Clear 29.80, Sodium 141, Potassium 4.6, Chloride 92 L, Carbon Dioxide > 45.0 H, Anion Gap TNP, BUN 35 H, Creatinine 1.54 H, Est GFR (CKD-EPI) 35.431, Glucose 95, Calcium 9.4 11/21/22 04:47: Corrected WBC 5.7, Uncorrected WBC Count 5.7, RBC 2.75 L, Hgb 8.0 L, Hct 24.7 L, MCV 89.8, MCH 29.0, MCHC 32.3, RDW 15.2, Plt Count 132 L, MPV 7.8, Neut % (Auto) 70.8, Lymph % (Auto) 18.9, [place] % (Auto) 7.3, Eos % (Auto) 2.7, Baso % (Auto) 0.3, Nucleat RBC Rel Count 0.1, Neut # (Auto) 4.1, Lymph # (Auto) 1.1, [place] # (Auto) 0.4, Eos # (Auto) 0.2, Baso # (Auto) 0.0 11/20/22 17:08: POC Glucose 135 Exam Physical Exam Vital Signs: Temp Pulse Resp BP Pulse Ox O2 Del Method O2 Flow Rate 97.9 F 68 18 149/79 H 93 L Nasal Cannula 4 11/21/22 08:30 11/21/22 12:00 11/21/22 12:00 11/21/22 12:00 11/21/22 12:00 11/21/22 12:00 11/21/22 12:00 Discharge Plan Discharge Plan Patient Disposition: Home Health Services Activity: No Activity Restriction Diet: Regular Additional Instructions: Home Health to manage care: - Full code - PT/OT eval and treat - Routine vital signs - Medication management and education - [facility] on 11/26 - result to Primary Care Provider - Prescriptions: New metolazone 2.5 mg Tablet 2.5 mg PO DAILY@729 30 Days Qty: 30 12RF Continued fluoxetine 40 mg capsule 40 mg PO DAILY Patient Comments: TAKE 1 CAPSULE BY MOUTH ONCE DAILY IN THE MORNING cyclobenzaprine 10 mg tablet 10 mg PO TID Patient Comments: TAKE 1 TABLET BY MOUTH THREE TIMES DAILY fluticasone propion-salmeterol [Advair Diskus] 250-50 mcg/dose blister with device 2 inh INHALATION QID bumetanide 2 mg tablet 1 mg PO QHS Patient Comments: TAKE 1 TABLET BY MOUTH IN THE MORNING bumetanide 2 mg tablet 2 mg PO QAM Patient Comments: TAKE 1 TABLET BY MOUTH IN THE MORNING ammonium lactate 12 % lotion TOPICAL Patient Comments: APPLY LOTION EXTERNALLY TWICE DAILY FOR 30 DAYS alprazolam 1 mg tablet 1 mg PO BID PRN (Reason: Anxiety) Patient Comments: TAKE 1 TABLET BY MOUTH TWICE DAILY NEEDED FOR ANXIETY tizanidine 4 mg tablet 4 mg PO TID PRN (Reason: Spasms) Patient Comments: TAKE 1 TABLET BY MOUTH THREE TIMES DAILY NEEDED FOR MUSCLE SPASM FOR 30 DAYS hydrocodone-acetaminophen 5-325 mg tablet 1 tab PO 2XD PRN (Reason: Pain) magnesium oxide 400 mg (241.3 mg magnesium) tablet 400 mg PO BID Patient Comments: TAKE 1 TABLET BY MOUTH TWICE DAILY metoprolol tartrate 50 mg tablet 50 mg PO BID Patient Comments: TAKE 1 TABLET BY MOUTH TWICE DAILY FOR 90 DAYS albuterol sulfate [Ventolin HFA] 90 mcg/actuation HFA aerosol inhaler INHALATION Patient Comments: INHALE 1 PUFF BY MOUTH EVERY 4 HOURS NEEDED calcium carbonate-vitamin D3 600 mg-10 mcg (400 unit) tablet 400 tab PO BID Patient Comments: TAKE 1 TABLET BY MOUTH TWICE DAILY Eliquis 5 mg tablet 5 mg PO DAILY Patient Comments: TAKE 1 TABLET BY MOUTH TWICE DAILY Rexulti 1 mg tablet 1 mg PO QHS Patient Comments: TAKE 1 TABLET BY MOUTH ONCE DAILY FOR 90 DAYS Farxiga 10 mg Tablet 10 mg PO DAILY Trulicity 0.75 mg/0.5 mL pen injector 0.75 mg SUBCUT QWEEK Patient Comments: INJECT 1 DOSE SUBCUTANEOUSLY ONCE A WEEK albuterol sulfate 2.5 mg /3 mL (0.083 %) solution for nebulization 2.5 mg inhalation Q6H Patient Comments: USE 1 VIAL IN NEBULIZER EVERY 6 HOURS NEEDED Other Ambulatory Orders: Basic Metabolic Panel (Routine) Timeframe: 20221126 Location: Determined by Patient Ordered By: Rey Arriaga [facility]iate [facility] (Routine) Timeframe: 1 Day Location: Determined by Patient Ordered By: Gina Poole Follow Up: Rama Montanez APRN [Nurse Practitioner] - 12/28/22 2:00 pm (Follow-up withCardiology. ) Shawn Barber II, MD [Primary Care Provider] - 11/24/22 11:00 am (You have been scheduled for a follow up appointment with Nurse Practioner for the following date and time, please call to reschedule if needed.) Documented By: Gina Poole DO 11/21/22 15 33 Signed By: <Electronically signed by Gina Poole DO> 11/21/22 1538 [facility] Work Phone: Evaluation + Plan note Future Appointments Appointment Date:02/06/2022 01:00:00 PM Scheduled Provider: Location:[facility] Appointment Type:Surgery PAT COVID Testing Appointment Date:02/16/2022 10:30:00 AM Scheduled Provider: Location:[facility] Appointment Type:Surgery FT Appointment Date:02/16/2022 12:30:00 PM Scheduled Provider: Location:[facility] Appointment Type:Surgery FT Future Scheduled Tests Laboratory* Fecal WBC Lactoferrin 12/31/21 * Giardia lamblia, Direct Detection EIA 12/31/21 * O & P Exam, Routine 12/31/21 * Clostridium difficile by PCR 12/31/21 * Enteric Panel by PCR 12/31/21 * CBC w/ Auto Diff 12/31/21 * Comprehensive Metabolic Panel 12/31/21 Radiology* CT Abdomen/Pelvis w/ Contrast 12/31/21 [facility] Evaluation + Plan note Future Appointments Appointment Date:02/16/2022 10:30:00 AM Scheduled Provider: Location:[facility] Appointment Type:Surgery FT Appointment Date:02/16/2022 12:30:00 PM Scheduled Provider: Location:[facility] Appointment Type:Surgery FT Future Scheduled Tests Laboratory* Fecal WBC Lactoferrin 12/31/21 * Giardia lamblia, Direct Detection EIA 12/31/21 * O & P Exam, Routine 12/31/21 * Clostridium difficile by PCR 12/31/21 * Enteric Panel by PCR 12/31/21 * CBC w/ Auto Diff 12/31/21 * Comprehensive [facility] Appointment Date:06/10/2022 09:30:00 AM Scheduled Provider:Alec XIE, Jacqui Nieves Location:[facility] Appointment Type:URO Office Visit Future Scheduled Tests Laboratory* Fecal WBC Lactoferrin 12/31/21 * Giardia lamblia, Direct Detection EIA 12/31/21 * O & P Exam, Routine 12/31/21 * Clostridium difficile by PCR 12/31/21 * Enteric Panel by PCR 12/31/21 * CBC w/ Auto Diff 12/31/21 * Comprehensive Metabolic Panel 12/31/21 [facility]ments Appointment Date:06/24/2022 08:30:00 AM Scheduled Provider: Location:[facility] Appointment Type:URO Nurse Visit Appointment Date:07/29/2022 09:00:00 AM Scheduled Provider:Jacqui Michael MD Location:[facility] Appointment Type:URO Office Visit Diagnostic Tests Pending * Lab Miscellaneous-LC 06/10/22 * Lab Miscellaneous-LC 06/10/22 * Cortisol 06/10/22 Future Scheduled Tests Laboratory* Fecal WBC Lactoferrin 12/31/21 * Giardia lamblia, Direct Detection EIA 12/31/21 * O & P Exam, Routine 12/31/21 * Clostridium difficile by PCR 12/31/21 * Enteric Panel by PCR 12/31/21 * CBC w/ Auto Diff 12/31/21 * Comprehensive Metabolic Panel 12/31/21 [facility] evaluation + Plan note Future Appointments Appointment Date:06/24/2022 08:30:00 AM Scheduled Provider: Location:[facility] Appointment Type:URO Nurse Visit Appointment Date:07/29/2022 09:00:00 AM Scheduled Provider:Jacqui Michael MD Location:[facility] Appointment Type:URO Office Visit Diagnostic Tests Pending * Urine Culture 06/10/22 Future Scheduled Tests Laboratory* Fecal WBC Lactoferrin 12/31/21 * Giardia lamblia, Direct Detection EIA 12/31/21 * O & P Exam, Routine 12/31/21 * Clostridium difficile by PCR 12/31/21 * Enteric Panel by PCR 12/31/21 * CBC w/ Auto Diff 12/31/21 * Comprehensive Metabolic Panel 12/31/21 [facility]ments Appointment Date:07/29/2022 09:00:00 AM Scheduled Provider:Jacqui Michael MD Location:[facility] Appointment Type:URO Office Visit Future Scheduled Tests Laboratory* Fecal WBC Lactoferrin 12/31/21 * Giardia lamblia, Direct Detection EIA 12/31/21 * O & P Exam, Routine 12/31/21 * Clostridium difficile by PCR 12/31/21 * Enteric Panel by PCR 12/31/21 * CBC w/ Auto Diff 12/31/21 * Comprehensive Metabolic Panel 12/31/21 [facility] evaluation + Plan note Future Appointments Appointment Date:02/03/2023 09:00:00 AM Scheduled Provider:Jacqui Michael MD Location:[facility] Appointment Type:URO Office Visit Future Scheduled Tests Laboratory* Fecal WBC Lactoferrin 12/31/21 * Giardia lamblia, Direct Detection EIA 12/31/21 * O & P Exam, Routine 12/31/21 * Clostridium difficile by PCR 12/31/21 * Enteric Panel by PCR 12/31/21 * CBC w/ Auto Diff 12/31/21 * Comprehensive Metabolic Panel 12/31/21 [facility] evaluation + Plan note Future Appointments Appointment Date:02/08/2023 09:45:00 AM Scheduled Provider: Location:[facility] Appointment Type:Urology CALL PAT FT Appointment Date:02/22/2023 10:45:00 AM Scheduled Provider: Location:[facility] Appointment Type:Urology FT [facility] evaluation + Plan note Future Appointments Appointment Date:04/28/2023 09:45:00 AM Scheduled Provider:Jacqui Michael MD Location:[facility] App[facility]ment [facility]ments App[facility]ment Date:05/14/2023 01:20:00 PM Scheduled Provider:Lani Wasserman CNP [place] [place] [facility] [place] Type[place] Follow Up [facility] evaluation note* Diagnosis Onset Date Resolution Status CHF (congestive heart failure) acute CHF exacerbation acute [facility] Work Phone: evaluation note* Diagnosis Onset Date Resolution Status Acute diastolic CHF (congest joan heart failure), NYHA class 3 acute Aortic stenosis acute CHF (congestive heart failure) acute CHF exacerbation acute Pulmonary hypertension [facility] Work Phone: evaluation note* Diagnosis Paroxysmal atrial fibrillation (CMS/HCC)- Primary Atrial fibrillation Anticoagulated Encounter for long-term (current) use of anticoagulants Nonrheumatic aortic valve stenosis Abnormal echocardiogram Nonspecific (abnormal) findings on radiological and other examination of other intrathoracic organs Pulmonary hypertension (CMS/HCC) Other chronic pulmonary heart diseases Stage 3a chronic kidney disease (CMS/HCC) Current smoker Diabetes mellitus type II, non insulin dependent (CMS/HCC) Type II or unspecified type diabetes mellitus without mention of complication, not stated as uncontrolled BMI 31.0-31.9,adult Mixed hyperlipidemia Essential hypertension Unspecified essential hypertension documented in this encounter [facility] Work Phone: Evaluation note* Diagnosis Nonrheumatic aortic valve stenosis Pulmonary hypertension (CMS/HCC) Other chronic pulmonary heart diseases documented in this encounter [facility] Work Phone: History and physical note Author Gina Poole [facility] November 18, 2022 10:13pm Note Date/Time November 18, 2022 10:1 1pm [facility] [address] [place] [address] Hospitalist H&P Signed Patient: Martin Hagen MR#: [id number] : 1950 Acct:[id number] Age/Sex: 71 / F Adm Date: 3 Loc: Room: [address] [place] [address] Type: ADM IN Attending Dr: Gina Poole DO Copies to: MD Gina Arambula II, ~ HPI DATE OF EXAMINATION: 11/18/22 CHIEF COMPLAINT: Shortness of breath HISTORY OF PRESENT ILLNESS: This patient is a 71-year-old female presented to the emergency department earlier today with worsening shortness of breath for the past week or so. She describes a dry cough accompanying this and increasing peripheral edema. She adryan 3 L of nasal cannula chronically at home. Her vital signs on arrival to the ER revealed a temperature of 98.3 ?F, heart rate of 73, respirations of 22/min, blood pressure 123/69, saturating in the 90s on 3 L nasal cannula. Repeat bloodpressures increasing into the 190s systolically. Her CBC is significant for an H&H of 8.7/26.8. Chemistries reveal mild hyperkalemia 5.2, alkalosis with bicarb 36.2, BUN and creatinine 29/1.78. Her EKG showed a normal sinus rhythm and no concerning ischemic changes. Her brain natruretic peptide level was significantly elevated at 2080. High-sensitivity troponin 18.0, repeat 18.4. The patient was provided IV Lasix and admitted to the progressive unit for further treatment and evaluation of acute CHF exacerbation. Patient reports having been treated for C. difficile twice, most recently finishing therapy over a month ago. She reports some ongoing looser stools since that time despite finishing antibiotic therapy. She reports ongoing nausea of unclear etiology. Sometimes this is associated with meals. Vague mild discomfort of the abdomen also associated with meals although not always. Physical Examination: GENERAL APPEARANCE: Alert, up in bed AAOx3 HEENT: NCAT, MMM NECK: Neck soft w/o masses, no JVD CARDIAC: Normal S1 and S2. No S3, S4 or murmurs. LUNGS: Clear to auscultation bilaterally. no wheeze/rhonchi/rales ABDOMEN: Positive bowel sounds. Soft, nontender. No guarding or signs of an acute abdomen MUSCULOSKELETAL: No joint erythema or tenderness. EXTREMITIES: No clubbing, cyanosis or 2+ pitting edema bilateral lower extremities PSYCHIATRIC: Appropriate mood and affect Assessment and plan: 1. Acute exacerbation of congestive heart failure Check echocardiogram. Patient endorses a history of CHF in the past however unclear of precise severity. She is on relatively high-dose Bumex at home. Will start the patient on 60 mg IV Lasix twice daily. Monitor I's and O's. 2. Troponin elevation Likely insignificant. Will trend. 3. Contraction alkalosis Likely from chronic diuretics. Monitor for any CO2 retention as this could be compensation for hypercapnia. We will follow with a.m. labs. If worsening may need to consider acetazolamide. 4. Anemia No microcytosis but will check iron studies. She may possibly have anemia of chronic disease including chronic kidney disease 5. Acute kidney injury Unclear baseline. Will monitor response to diuresis. 6. Diabetes mellitus Patient takes SGLT 2 inhibitor and GLP-1 agonist at home. We will order these and give formulary equivalent if possible. Otherwise will monitor sugars and start #2 sliding scale Disposition: Patient will need continuous telemetry monitoring, daily labs for electrolyte monitoring while receiving work-up for heart failure and IV diuresisfor fluid overload. She is thus admitted as an inpatient. Review of Systems Review of Systems All other systems reviewed & are negative unless noted below or in HPI PMFSH Vaccinated for COVID-19?: No Medical History (Updated 11/18/22 @ 21:50 by Hamida Chaparro RN) Afib Anxiety Arthritis Bronchial asthma Bronchial spasms CHF (congestive heart failure) Chronic low back pain COPD (chronic obstructive pulmonary disease) Depression Diabetes Glaucoma, right eye Hyperlipidemia Macular degeneration of both eyes Sleep apnea treated with continuous positive airway pressure (CPAP) Family History Brother Myocardial infarction Father Myocardial infarction Mother History of open heart surgery COPD (chronic obstructive pulmonary disease) Emphysema of lung Sister Stroke Hypertension Sister Stroke Hypertension Sister Stroke Social History Smoking Status: Current every day smoker Tobacco Type: cigarettes Substance Use Type: None Meds Medications and Allergies Allergies No Known Allergies Allergy (Verified 11/18/22 16:16) Home Medications albuterol sulfate 90 mcg/actuation aerosol inhaler (Ventolin HFA) inhalation 11/18/22 [History] alprazolam 1 mg tablet 1 mg PO BID PRN Anxiety 11/18/22 [History Confirmed 11/18/22] ammonium lactate 12 % lotion topical 11/18/22 [History] apixaban 5 mg tablet (Eliquis) 5 mg PO DAILY 11/18/22 [History Confirmed 11/18/22] brexpiprazole 1 mg tablet (Rexulti) 1 mg PO QHS 11/18/22 [History Confirmed 11/18/22] bumetanide 2 mg tablet 1 mg PO QHS 11/18/22 [History Confirmed 11/18/22] bumetanide 2 mg tablet 2 mg PO QAM 11/18/22 [History Confirmed 11/18/22] calcium carbonate 600 mg-vitamin D3 10 mcg (400 unit) tablet 400 tab PO BID 11/18/22 [History Confirmed 11/18/22] cyclobenzaprine 10 mg tablet 10 mg PO TID 11/18/22 [History Confirmed 11/18/22] dapagliflozin propanediol 10 mg tablet (Farxiga) 10 mg PO DAILY 11/18/22 [History Confirmed 11/18/22] dulaglutide 0.75 mg/0.5 mL subcutaneous pen injector (Trulicity) 0.75 mg subcut QWEEK 11/18/22 [History Confirmed 11/18/22] fluoxetine 40 mg capsule 40 mg PO DAILY 11/18/22 [History Confirmed 11/18/22] fluticasone 250 mcg-salmeterol 50 mcg/dose blistr powdr for inhalation (Advair Diskus) 2 inh inhalation QID 11/18/22 [History Confirmed 11/18/22] hydrocodone 5 mg-acetaminophen 325 mg tablet 1 tab PO 2XD PRN Pain 11/18/22 [History Confirmed 11/18/22] magnesium oxide 400 mg (241.3 mg magnesium) tablet 400 mg PO BID 11/18/22 [History Confirmed 11/18/22] metoprolol tartrate 50 mg tablet 50 mg PO BID 11/18/22 [History Confirmed 11/18/22] tizanidine 4 mg tablet 4 mg PO TID PRN Spasms 11/18/22 [History Confirmed 11/18/22] Exam Physical Exam Vital Signs: Temp Pulse Resp BP Pulse Ox O2 Del Method O2 Flow Rate 98.1 F 81 24 166/81 H 97 Nasal Cannula 3 11/18/22 21:27 11/18/22 21:27 11/18/22 21:27 11/18/22 21:27 11/18/22 21:27 11/18/22 21:27 11/18/22 21:27 Results Lab Results Labs: Laboratory Last Values Corrected WBC 6.8 X10E3/uL (3.8-11.6) 11/18/22 17:51 Uncorrected WBC Count 6.8 x10E3/uL (3.8-11.6) 11/18/22 17:51 RBC 2.98 X10E6/uL (3.60-5.00) L 11/18/22 17:51 Hgb 8.7 g/dL (11.8-15.4) L 11/18/22 17:51 Hct 26.8 % (34.0-46.4) L 11/18/22 17:51 MCV 89.8 fl (80-100) 11/18/22 17:51 MCH 29.1 pg (24.7-34.3) 11/18/22 17:51 MCHC 32.4 g/dL (32.0-35.0) 11/18/22 17:51 RDW 15.2 % (11.9-15.3) 11/18/22 17:51 Plt Count 169 x10E3/uL (150-450) 11/18/22 17:51 MPV 8.2 fl (6.3-10.7) 11/18/22 17:51 Neut % (Auto) 69.4 % (.) 11/18/22 17:51 Lymph % (Auto) 22.5 % (.) 11/18/22 17:51 [place] % (Auto) 5.7 % (.) 11/18/22 17:51 Eos % (Auto) 1.7 % (.) 11/18/22 17:51 Baso % (Auto) 0.7 % (.) 11/18/22 17:51 Nucleat RBC Rel Count 0.0 /100 WBC (0-0.5) 11/18/22 17:51 Neut # (Auto) 4.7 x10E3/uL (1.8-7.7) 11/18/22 17:51 Lymph # (Auto) 1.5 x10E3/uL (1.00-4.8) 11/18/22 17:51 [place] # (Auto) 0.4 x10E3/uL (0.0-0.8) 11/18/22 17:51 Eos # (Auto) 0.1 x10E3/uL (0.0-0.45) 11/18/22 17:51 Baso # (Auto) 0.0 x10E3/uL (0.0-0.2) 11/18/22 17:51 Monocyte Dist Width 16.05 % (0.00-20.00) 11/18/22 17:51 PT 17.6 Seconds (9.0-12.9) H 11/18/22 17:51 INR 1.5 11/18/22 17:51 APTT 35.1 Seconds (25.1-36.5) 11/18/22 17:51 PHA Creatinine Clear 25.51 11/18/22 17:51 Sodium 142 mmol/L (136-145) 11/18/22 17:51 Potassium 5.2 mmol/L (3.5-5.1) H 11/18/22 17:51 Chloride 101 mmol/L (98-107) 11/18/22 17:51 Carbon Dioxide 36.2 mmol/L (21.0-31.0) H 11/18/22 17:51 Anion Gap 10.0 mEq/L (6.0-15.0) 11/18/22 17:51 BUN 29 mg/dL (7-25) H 11/18/22 17:51 Creatinine 1.78 mg/dL (0.60-1.20) H 11/18/22 17:51 Est GFR (CKD-EPI) 29.779 mL/Min 11/18/22 17:51 Glucose 101 mg/dL (70-100) H 11/18/22 17:51 Calcium 8.1 mg/dL (8.6-10.3) L 11/18/22 17:51 Total Bilirubin 0.4 mg/dl (0.3-1.0) 11/18/22 17:51 Direct Bilirubin 0.10 mg/dL (0.03-0.18) 11/18/22 17:51 Indirect Bilirubin 0.3 mg/dL 11/18/22 17:51 AST 15 U/L (13-39) 11/18/22 17:51 ALT 10 U/L (7-52) 11/18/22 17:51 Alkaline Phosphatase 54 U/L (34-104) 11/18/22 17:51 Total Creatine Kinase 44 U/L (30-223) 11/18/22 20:06 Troponin I High Sens 18.4 pg/mL (0.0-15.0) H 11/18/22 20:06 B-Natriuretic Peptide 2080.0 pg/mL (5-100) H 11/18/22 17:51 Total Protein 6.6 gm/dL (6.4-8.9) 11/18/22 17:51 Albumin 3.4 gm/dL (3.5-5.7) L 11/18/22 17:51 Globulin 3.2 gm/dL 11/18/22 17:51 Albumin/Globulin Ratio 1.1 11/18/22 17:51 Assessment & Plan IP vs OBS Justification Based on differential dx, clinical care plan, and risk of adverse events, if untreated, in my clinical judgement this patient requires an acute care setting as: INPATIENT because of an expectation of an over 2 midnight stay. Estimated length of stay (# of days): 3 Documented By: Gina Poole DO 07/19/23 22 02 Signed By: <Electronically signed by Gina Poole DO> 11/18/22 1953 [facility] Work Phone: History of Present illness Narrative* The patient states she has been generally stable since the last visit. Comorbid Illnesses: diabetesmellitus. * Symptoms: denies chest pain at rest, denies exertional chest pain, stable dyspnea, stable fatigue, denies exercise intolerance, denies palpitations, improved edema, denies orthopnea, denies dizzinessand denies orthostatic dizziness. * Associated symptoms: no syncope. * Her symptoms do not limit her activities. * Disease Monitoring: * Medications: the patient is adherent with her medication regimen. She denies medication side effects. [place] [id number] DO Work Phone: Hospital course Narrative No data available for this section [facility] Discharge instructions No data available for this section [facility]* Initiate Home Health Time Frame: 1 Day, Location: Determined By Patient Additional Instructions Home Health to manage care: - Full code - PT/OT eval and treat - Routine vital signs - Medication management and education - [facility] on 11/26 - result to Primary Care Provider -[facility] Work Phone: Progress note No data available for this section [facility] Pronpgfj note Author Gina Poole [facility] November 19, 2022 11:54am Note Date/Time November 19, 2022 11:5 4am [facility] [address] [place] [address] Hospitalist Progress Note Signed Patient: Martin Hagen MR#: [id number] : 1950 Acct:[id number] Age/Sex: 71 / F Adm Date: 3 Loc: 4 Room: [address] [place] [address] Type: ADM IN Attending Dr: Gina Poole DO Copies to: ~ Date of Service: 11/19/2022 Subjective Subjective Narrative: Patient was seen and examined at side. No acute events overnight. No new complaints. Breathing mildly improved Physical Examination: GENERAL APPEARANCE: Alert, up in bed AAOx3 HEENT: NCAT, MMM NECK: Neck soft w/o masses, no JVD CARDIAC: Normal S1 and S2. No S3, S4 or murmurs. Holosystolic murmur noted diffusely LUNGS: Clear to auscultation bilaterally. no wheeze/rhonchi/rales ABDOMEN: Positive bowel sounds. Soft, nontender. No guarding or signs of an acute abdomen MUSCULOSKELETAL: No joint erythema or tenderness. EXTREMITIES: No clubbing, cyanosis or 2+ pitting edema bilateral lower extremities PSYCHIATRIC: Appropriate mood and affect Assessment and plan: 1. Acute exacerbation of congestive heart failure Echocardiogram ejection fraction and severe pulmonary hypertension. we will continue diuresis 2. Severe aortic stenosis We will consult cardiology for medical optimization and possible surgical referral. We will avoid vasodilators and can consider decreasing dose of beta-georgie. 3. Contraction alkalosis We will follow with a.m. labs as diuresis is likely to make this worse. Perhapssome component of compensation for CO2 retention. 4. Anemia Ferritin level is elevated and iron level is on the lower side. This is seemingly anemia of chronic inflammation rather than iron deficiency. 5. Acute kidney injury versus chronic kidney disease Unclear baseline. Relatively unchanged today with Lasix. 6. Diabetes mellitus #2 sliding scale Disposition: Patient will need continuous telemetry monitoring, daily labs for electrolyte monitoring while receiving work-up for heart failure and IV diuresisfor fluid overload. She is thus admitted as an inpatient. Exam Physical Exam Vital Signs: Temp Pulse Resp BP Pulse Ox O2 Del Method O2 Flow Rate 98.3 F 71 18 149/77 H 96 Nasal Cannula 4 11/19/22 11:25 11/19/22 11:25 11/19/22 11:25 11/19/22 11:25 11/19/22 11:25 11/19/22 11:25 11/19/22 11:25 Objective Lab Results 11/19/22 03:13 11/19/22 03:13 Meds Allergies and Active Meds Allergies No Known Allergies Allergy (Verified 11/18/22 16:16) Active Meds: Active Medications Generic Name Dose Route Start Last Admin Trade Name Freq PRN Reason Stop Dose Admin Hydrocodone Bitart/Acetaminophen 1 tab 11/18/22 21:55 Hydrocodone/Acetaminophen 5-325 Mg Tablet PO BID PRN Pain Alprazolam 1 mg 11/18/22 22:37 11/19/22 00:14 Alprazolam 0.5 Mg Tablet PO 05/17/23 22:36 1 mg BID PRN Administration Anxiety Apixaban 5 mg 11/19/22 09:00 11/19/22 08:24 Apixaban 5 Mg Tablet PO 11/19/23 08:59 5 mg DAILY OSCAR Administration Brexpiprazole 1 mg 11/18/22 23:00 11/19/22 00:14 Brexpiprazole 1 Mg Tablet PO 11/18/23 22:59 1 mg QHS OSCAR Administration Budesonide/Formoterol Fumarate 2 puff 11/19/22 09:00 11/19/22 08:01 Budesonide/Formoterol 160-4.5 Mcg 60 Puff/6 Gm Hfa.Aer.Ad INHALATION 11/19/23 08:59 2 puff BID OSCAR Administration Calcium Carbonate 1 tab 11/19/22 09:00 11/19/22 08:23 Calcium Carbonate/Vitamin D3 500 Mg/200 Unit Tablet PO 11/19/23 08:59 1 tab BID OSCAR Administration Empagliflozin 10 mg 11/19/22 09:00 11/19/22 08:24 Empagliflozin 10 Mg Tablet PO 11/19/23 08:59 10 mg DAILY OSCAR Administration Fluoxetine HCl 40 mg 11/19/22 09:00 11/19/22 08:23 Fluoxetine 20 Mg Capsule PO 11/19/23 08:59 40 mg DAILY OSCAR Administration Furosemide 60 mg 11/19/22 08:00 11/19/22 08:41 Furosemide 40 Mg/4 Ml Vial IV-PUSH 11/19/23 07:59 60 mg BID@0800,1600 OSCAR Administration Magnesium Sulfate 2 gm in 50 mls @ 25 mls/hr 11/18/22 19:07 Magnesium Sulf 2gm-*Swfi* IV 11/18/23 19:06 DAILY PRN Magnesium < 1.6 Insulin Aspart 0 units 11/19/22 12:00 Insulin Aspart 300 Units/3 Ml Insuln.Pen SUBCUT 11/19/23 11:59 [facility]ID[facility] Protocol Magnesium Oxide 400 mg 11/19/22 09:00 11/19/22 08:24 Magnesium Oxide 400 Mg Tablet PO 11/19/23 08:59 400 mg BID OSCAR Administration Metoprolol Tartrate 50 mg 11/19/22 09:00 11/19/22 08:24 Metoprolol Tartrate 50 Mg Tablet PO 11/19/23 08:59 50 mg BID OSCAR Administration Non-Formulary Medication 0.75 mg 11/25/22 09:00 Dulaglutide [Trulicity] SUBCUT 11/25/23 08:59 QWEEK OSCAR Potassium Chloride 40 meq 11/18/22 19:07 Potassium Chloride Er 20 Meq Tab.Er.Prt PO 11/18/23 19:06 DAILY PRN Hypokalemia Sodium Chloride 0 ml 11/18/22 16:15 Sodium Chloride 0.9 % 10 Ml Syringe IV-PUSH 11/18/23 16:14 PRN PRN Flush Tizanidine HCl 4 mg 11/18/22 21:55 Tizanidine 4 Mg Tablet PO 11/18/23 21:54 TID PRN Spasms Documented By: Gina Poole DO 11/19/22 11 45 Signed By: <Electronically signed by Gina Poole DO> 11/19/22 1154 [facility] Work Phone: Progress note Author Rey Arriaga [facility] November 20, 2022 10:30am Note Date/Time November 20, 2022 10:3 0am [facility] [address] [place] [address] Cardiology Progress Note Signed Patient: Martin Hagen MR#: [id number] : 1950 Acct:[id number] Age/Sex: 71 / F Adm Date: 3 Loc: 4 Room: 2E3546-9 Type: ADM IN Attending Dr: Gina Poole DO Copies to: ~ Date of Service: 11/20/2022 Subjective Principal diagnosis: Acute diastolic CHF Interval history: Patient notes some clinical improvement. Still some shortness of breath, though, ambulating from bed to bathroom. We discussed going home and she statesshe does not feel well enough to go home today. Exam Physical Exam Vital Signs: Temp Pulse Resp BP Pulse Ox O2 Del Method O2 Flow Rate 97.6 F 67 18 155/74 H 95 Nasal Cannula 4 11/20/22 08:00 11/20/22 08:19 11/20/22 08:19 11/20/22 08:00 11/20/22 08:00 11/20/22 08:00 11/20/22 08:00 HEENT Head: normal to inspection Ears: hearing grossly normal bilaterally Nose: external nose normal and nares normal Face and sinus: normal facial exam Mouth: oral mucosae normal and tongue normal Eyes Conjunctivae: conjunctivae normal Sclera: sclerae normal Neck Neck: normal visual inspection Carotids: normal carotid upstroke Lymphatic: no lymphadenopathy noted Chest Chest palpation & inspection: normal inspection of the chest Resp Other: Patient still has basilar rales Cardio Rate: regular rate Rhythm: regular rhythm Heart Sounds: murmur systolic III/ GI Inspection: normal to inspection Palpation: soft Skin General: no rashes or lesions noted Neuro General: patient alert, patient awake and patient oriented x3 Cognition: normal cognition Motor: muscle tone normal throughout Sensory Exam: no sensory deficits noted Objective Labs 11/20/22 04:48 11/20/22 04:48 Labs: Laboratory Results - last 24 hr 11/19/22 11/19/22 11/19/22 11:30 16:45 20:09 Corrected WBC Uncorrected WBC Count RBC Hgb Hct MCV MCH MCHC RDW Plt Count MPV Neut % (Auto) Lymph % (Auto) [place] % (Auto) Eos % (Auto) Baso % (Auto) Nucleat RBC Rel Count Neut # (Auto) Lymph # (Auto) [place] # (Auto) Eos # (Auto) Baso # (Auto) PHA Creatinine Clear Sodium Potassium Chloride Carbon Dioxide Anion Gap BUN Creatinine Est GFR (CKD-EPI) Glucose POC Glucose 168 140 POC Glucose Comment Glu2: cleaned meter Calcium Total Creatine Kinase 31 Troponin I High Sens 19.6 H 11/20/22 11/20/22 11/20/22 04:48 04:48 06:58 Corrected WBC 5.4 Uncorrected WBC Count 5.4 RBC 2.77 L Hgb 8.0 L Hct 24.9 L MCV 90.0 MCH 28.9 MCHC 32.1 RDW 15.6 H Plt Count 133 L MPV 7.9 Neut % (Auto) 68.4 Lymph % (Auto) 22.4 [place] % (Auto) 6.7 Eos % (Auto) 2.1 Baso % (Auto) 0.4 Nucleat RBC Rel Count 0.1 Neut # (Auto) 3.7 Lymph # (Auto) 1.2 [place] # (Auto) 0.4 Eos # (Auto) 0.1 Baso # (Auto) 0.0 PHA Creatinine Clear 26.49 Sodium 144 Potassium 4.7 Chloride 99 Carbon Dioxide 42.2 H Anion Gap 7.5 BUN 33 H Creatinine 1.73 H Est GFR (CKD-EPI) 30.815 Glucose 104 H POC Glucose 130 POC Glucose Comment Calcium 8.7 Total Creatine Kinase Troponin I High Sens 11/20/22 08:06 Corrected WBC Uncorrected WBC Count RBC Hgb Hct MCV MCH MCHC RDW Plt Count MPV Neut % (Auto) Lymph % (Auto) [place] % (Auto) Eos % (Auto) Baso % (Auto) Nucleat RBC Rel Count Neut # (Auto) Lymph # (Auto) [place] # (Auto) Eos # (Auto) Baso # (Auto) PHA Creatinine Clear Sodium Potassium Chloride Carbon Dioxide Anion Gap BUN Creatinine Est GFR (CKD-EPI) Glucose POC Glucose 116 POC Glucose Comment Calcium Total Creatine Kinase Troponin I High Sens A&P - Cardiology (1) Aortic stenosis: Assessment/Problem Details: Patient's aortic stenosis is moderate to moderately severe. It requires treatment with poly diuretic regimen. Presently it appears that furosemide in combination with metolazone would be most appropriate. At discharge I would recommend lisinopril 20 mg a day in combination with metolazone 2.5 mg a day. Close follow-up with basic metabolic profile and office visit. Code(s): I35.0 - Nonrheumatic aortic (valve) stenosis Status: Acute (2) Pulmonary hypertension: Assessment/Problem Details: Patient's severe pulmonary hypertension is probably on the basis of volume and fluid overload. With diuresis and establishment of euvolemia we hope that her pulmonary hypertension will improve. Code(s): I27.20 - Pulmonary hypertension, unspecified Status: Acute (3) Acute diastolic CHF (congestive heart failure), NYHA class 3: Assessment/Problem Details: Patient's acute diastolic heart failure is in part complicated by her moderatelysevere aortic stenosis. Code(s): I50.31 - Acute diastolic (congestive) heart failure Status: Acute Plan Continue same regimen. Plan discharge tomorrow on furosemide and metolazone as above Other medicines as before. Patient will require close follow-up. Documented By: Rey Arriaga MD [id number] Signed By: <Electronically signed by MD Rey Arriaga> 11/20/22 1030 [facility] Work Phone: Progress note Author Gina Poole [facility] November 20, 2022 2:12pm Note Date/Time November 20, 2022 2:12 pm [facility] [address] [place] [address] Hospitalist Progress Note Signed Patient: Martin Hagen MR#: [id number] : 1950 Acct:[id number] Age/Sex: 71 / F Adm Date: 3 Loc: Room: [address] [place] [address] Type: ADM IN Attending Dr: Gina Poole DO Copies to: ~ Date of Service: 11/20/2022 Subjective Subjective Narrative: Patient was seen and examined at side. No acute events overnight. No new complaints. Breathing mildly improved Physical Examination: GENERAL APPEARANCE: Alert, up in bed AAOx3 HEENT: NCAT, MMM NECK: Neck soft w/o masses, no JVD CARDIAC: Normal S1 and S2. No S3, S4 or murmurs. Holosystolic murmur noted diffusely LUNGS: Clear to auscultation bilaterally. no wheeze/rhonchi/rales ABDOMEN: Positive bowel sounds. Soft, nontender. No guarding or signs of an acute abdomen MUSCULOSKELETAL: No joint erythema or tenderness. EXTREMITIES: No clubbing, cyanosis or 2+ pitting edema bilateral lower extremities PSYCHIATRIC: Appropriate mood and affect Assessment and plan: 1. Acute exacerbation of congestive heart failure Echocardiogram ejection fraction and severe pulmonary hypertension. we will continue diuresis 2. Severe aortic stenosis Appreciate cardiology consultation. No urgent interventions 3. Contraction alkalosis Continue Lasix but león lower this dosing and instead add acetazolamide to prevent further alkalosis 4. Anemia Ferritin level is elevated and iron level is on the lower side. This is seemingly anemia of chronic inflammation rather than iron deficiency. 5. Acute kidney injury versus chronic kidney disease Unchanged with aggressive diuresis 6. Diabetes mellitus #2 sliding scale Disposition: Patient will need continuous telemetry monitoring, daily labs for electrolyte monitoring while receiving work-up for heart failure and IV diuresisfor fluid overload. She is thus admitted as an inpatient. Exam Physical Exam Vital Signs: Temp Pulse Resp BP Pulse Ox O2 Del Method O2 Flow Rate 97.2 F L 67 18 151/71 H 96 Nasal Cannula 4 11/20/22 11:58 11/20/22 12:30 11/20/22 12:30 11/20/22 11:58 11/20/22 11:58 11/20/22 11:58 11/20/22 11:58 Objective Lab Results 11/20/22 04:48 11/20/22 04:48 Meds Allergies and Active Meds Allergies No Known Allergies Allergy (Verified 11/18/22 16:16) Active Meds: Active Medications Generic Name Dose Route Start Last Admin Trade Name Freq PRN Reason Stop Dose Admin Hydrocodone Bitart/Acetaminophen 1 tab 11/18/22 21:55 11/20/22 08:50 Hydrocodone/Acetaminophen 5-325 Mg Tablet PO 1 tab BID PRN Administration Pain Albuterol 2.5 mg 11/20/22 08:00 11/20/22 12:29 Albuterol Neb 2.5 Mg/3 Ml Vial.Neb INHALATION 11/19/23 14:14 2.5 mg QID.RESP OSCAR Administration Alprazolam 1 mg 11/18/22 22:37 11/20/22 08:54 Alprazolam 0.5 Mg Tablet PO 05/17/23 22:36 1 mg BID PRN Administration Anxiety Apixaban 5 mg 11/19/22 09:00 11/20/22 08:29 Apixaban 5 Mg Tablet PO 11/19/23 08:59 5 mg DAILY OSCAR Administration Brexpiprazole 1 mg 11/18/22 23:00 11/19/22 21:40 Brexpiprazole 1 Mg Tablet PO 11/18/23 22:59 1 mg QHS OSCAR Administration Budesonide/Formoterol Fumarate 2 puff 11/19/22 09:00 11/20/22 08:20 Budesonide/Formoterol 160-4.5 Mcg 60 Puff/6 Gm Hfa.Aer.Ad INHALATION 11/19/23 08:59 2 puff BID OSCAR Administration Calcium Carbonate 1 tab 11/19/22 09:00 11/20/22 08:29 Calcium Carbonate/Vitamin D3 500 Mg/200 Unit Tablet PO 11/19/23 08:59 1 tab BID OSCAR Administration Empagliflozin 10 mg 11/19/22 09:00 11/20/22 08:29 Empagliflozin 10 Mg Tablet PO 11/19/23 08:59 10 mg DAILY OSCAR Administration Fluoxetine HCl 40 mg 11/19/22 09:00 11/20/22 08:28 Fluoxetine 20 Mg Capsule PO 11/19/23 08:59 40 mg DAILY OSCAR Administration Furosemide 60 mg 11/19/22 08:00 11/20/22 08:30 Furosemide 40 Mg/4 Ml Vial IV-PUSH 11/19/23 07:59 60 mg BID@0800,1600 OSCAR Administration Magnesium Sulfate 2 gm in 50 mls @ 25 mls/hr 11/18/22 19:07 Magnesium Sulf 2gm-*Swfi* IV 11/18/23 19:06 DAILY PRN Magnesium < 1.6 Insulin Aspart 0 units 11/19/22 12:00 11/20/22 12:17 Insulin Aspart 300 Units/3 Ml Insuln.Pen SUBCUT 11/19/23 11:59 Not Given TID[facility] Protocol Magnesium Oxide 400 mg 11/19/22 09:00 11/20/22 08:28 Magnesium Oxide 400 Mg Tablet PO 11/19/23 08:59 400 mg BID OSCAR Administration Metolazone 2.5 mg 11/20/22 07:30 11/20/22 08:29 Metolazone 2.5 Mg Tablet PO 11/20/23 07:29 2.5 mg DAILY@0730 OSCAR Administration Metoprolol Tartrate 50 mg 11/19/22 09:00 11/20/22 08:29 Metoprolol Tartrate 50 Mg Tablet PO 11/19/23 08:59 50 mg BID OSCAR Administration Non-Formulary Medication 0.75 mg 11/25/22 09:00 Dulaglutide [Trulicity] SUBCUT 11/25/23 08:59 QWEEK OSCAR Potassium Chloride 40 meq 11/18/22 19:07 Potassium Chloride Er 20 Meq Tab.Er.Prt PO 11/18/23 19:06 DAILY PRN Hypokalemia Sodium Chloride 0 ml 11/18/22 16:15 Sodium Chloride 0.9 % 10 Ml Syringe IV-PUSH 11/18/23 16:14 PRN PRN Flush Tizanidine HCl 4 mg 11/18/22 21:55 Tizanidine 4 Mg Tablet PO 11/18/23 21:54 TID PRN Spasms Documented By: Gina Poole DO 11/20/22 14 08 Signed By: <Electronically signed by Gina Poole DO> 11/20/22 1412 [facility] Work Phone: Progress note Author Colin Carrillo [facility] November 21, 2022 11:31am Note Date/Time November 21, 2022 11:3 1am [facility] [address] [place] [address] Cardiology Progress Note Signed Patient: Martin Hagen MR#: [id number] : 1950 Acct:[id number] Age/Sex: 71 / F Adm Date: 3 Loc: 4 Room: [address] [place] [address] Type: ADM IN Attending Dr: Gina Poole DO Copies to: ~ Date of Service: 11/21/2022 Subjective Principal diagnosis: Acute diastolic CHF Interval history: Patient is much improved, laying flat in bed with no dyspnea. Patient wishes togo home. She has no more lower extremity edema. Patient can be discharged hometoday with close follow-up with Dr. Arriaga and his nurse practitioner in 2 weeks Exam Physical Exam Vital Signs: Temp Pulse Resp BP Pulse Ox O2 Del Method O2 Flow Rate 97.9 F 70 20 133/77 93 L Nasal Cannula 4 11/21/22 08:30 11/21/22 08:30 11/21/22 08:30 11/21/22 08:30 11/21/22 08:30 11/21/22 08:30 11/21/22 08:30 Const General: healthy appearing, comfortable and no acute distress Nutritional Appearance: obese Orientation: alert, awake and oriented x3 HEENT Head: normal to inspection, normocephalic and atraumatic Ears: hearing grossly normal bilaterally Nose: external nose normal Eyes General: appearance normal, both eyes and all related structures Conjunctivae: conjunctivae normal Pupils: PERRL Neck Neck: normal visual inspection, trachea midline and supple Neck mass: No Thyroid: thyroid normal Carotids: normal carotid upstroke Resp Effort & Inspection: normal respiratory effort Auscultation: clear to auscultation bilaterally Cardio Jugular venous pressure: no JVD Palpation: normal PMI Rate: regular rate Rhythm: regular rhythm Heart Sounds: murmur (2/6 systolic ejection murmur at the right sternal border) GI Inspection: normal to inspection Palpation: soft and no hepatosplenomegaly Auscultation: normal bowel sounds Extrem General: no clubbing, cyanosis or edema Objective Labs 11/21/22 04:47 11/21/22 04:47 Labs: Laboratory Results - last 24 hr 11/20/22 11/20/22 11/21/22 12:08 17:08 04:47 Corrected WBC 5.7 Uncorrected WBC Count 5.7 RBC 2.75 L Hgb 8.0 L Hct 24.7 L MCV 89.8 MCH 29.0 MCHC 32.3 RDW 15.2 Plt Count 132 L MPV 7.8 Neut % (Auto) 70.8 Lymph % (Auto) 18.9 [place] % (Auto) 7.3 Eos % (Auto) 2.7 Baso % (Auto) 0.3 Nucleat RBC Rel Count 0.1 Neut # (Auto) 4.1 Lymph # (Auto) 1.1 [place] # (Auto) 0.4 Eos # (Auto) 0.2 Baso # (Auto) 0.0 PHA Creatinine Clear Sodium Potassium Chloride Carbon Dioxide Anion Gap BUN Creatinine Est GFR (CKD-EPI) Glucose POC Glucose 123 135 Calcium 11/21/22 11/21/22 04:47 08:37 Corrected WBC Uncorrected WBC Count RBC Hgb Hct MCV MCH MCHC RDW Plt Count MPV Neut % (Auto) Lymph % (Auto) [place] % (Auto) Eos % (Auto) Baso % (Auto) Nucleat RBC Rel Count Neut # (Auto) Lymph # (Auto) [place] # (Auto) Eos # (Auto) Baso # (Auto) PHA Creatinine Clear 29.80 Sodium 141 Potassium 4.6 Chloride 92 L Carbon Dioxide > 45.0 H Anion Gap TNP BUN 35 H Creatinine 1.54 H Est GFR (CKD-EPI) 35.431 Glucose 95 POC Glucose 118 Calcium 9.4 A&P - Cardiology (1) Aortic stenosis: Assessment/Problem Details: Moderate?severe in intensity, need follow-up to decide on timing for intervention down the road with annual echocardiograms. Code(s): I35.0 - Nonrheumatic aortic (valve) stenosis Status: Acute Plan: Follow-up as an outpatient with echocardiograms. 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 Code(s): I27.20 - Pulmonary hypertension, unspecified Status: Acute Plan: Aggressive diuresis with metolazone and furosemide with close monitoring of kidney function and electrolytes (3) Acute diastolic CHF (congestive heart failure), NYHA class 3: Assessment/Problem Details: Mostly driven by significant degree of aortic stenosis and hypertension. Code(s): I50.31 - Acute diastolic (congestive) heart failure Status: Acute Plan: Maintaining adequate blood pressure control and aggressive diuresis Documented By: Colin Carrillo MD, PLACDIO 3 [id number] Signed By: <Electronically signed by MD PLACIDO Carrillo> 11/21/22 1131 [facility] Work Phone: Reason for referral (narrative)* Consultation (Routine) - Authorized Specialty Diagnoses / Procedures Referred By Jack lorenzo Referred To Contact Cardiology Diagnoses Paroxysmal atrial fibrillation (CMS/HCC) Procedures Follow Up In Cardiology Rama Kaba APRN-CNP [address] [address], [address] [address] Referral ID Status Reason Start Date Expiration Date V isits Requested Visits Authorized [id number] Authorized 03/30/2023 03/29/2024 1 1 * CV Imaging (Routine) - Pending Review Specialty Diagnoses / Procedures Referred By Jack lorenzo Referred To Contact Cardiology Diagnoses Nonrheumatic aortic valve stenosis Pulmonary hypertension (CMS/HCC) Procedures Transthoracic Echo (TTE) Complete NC ECHO TRANSTHORC R-T 2D W/WO M-MODE REC F-UP/LMTD NC DOP ECHOCARD COLOR FLOW VELOCITY MAPPING NC DOP ECHOCARD PULSE WAVE W/SPECTRAL F-UP/LMTD STD Rama Kaba APRN-CNP [address] [facility] 2, [address] [address] Referral ID Status Reason Start Date Expiration Date Visits Requested Visits Authorized [id number] Pending Review Perform Procedure 3 03/29/2024 1 1 [facility] Work Phone: Summary Purpose Family History No Family History Records Found Relationship Condition Age at Onset Recorded Date/T emma brother Myocardial infarction Unknown father Myocardial infarction Unknown Not Specified History of open heart surgery Unknown Chronic obstructive pulmonary disease Unk nown Pulmonary emphysema Unknown sister Cerebrovascular accident (CVA) Unknown Hypertension Unknown Unknown Family Member Name Dates Details Family history of hypertensi on: Mother, Sister, Brother(V17.49, Z82.49) Status:Active S/P CABG x 2: Mother(V45.81, Z95.1) Status:Active Family history of coronary a rtery disease: Mother(V17.3, Z82.49) Status:Active Aortic valve replaced: Candice ambrose(V43.3, Z95.2) Status:Active Family history of myocardial infarction: Father(V17.3, Z82.49) Status:Active Family history of sciatica: Sister, Brother(V17.2, Z82.69) Status:Active Family history of diabetes m ellitus: Sister(V18.0, Z83.3) Status:Active Advance Directives No Advanced Directives Records Found Advance Directive Response Recorded Date/ Time Advance Directives No November 18 5:49pm Chief Complaint and Reason for Visit Chief Complaint CHF sent by Reason for Visit CHF (congestive hear t failure) CHF exacerbation Chief Complaint CHF sent by Reason for Visit Acute diastolic CHF (congestive heart failure), NYHA class 3 Aortic stenosis CHF (congestive heart failure) CHF exacerbation Pulmonary hypertension Chief Complaint * Hospital f/u: 'doing ok' * MARTIN HAGEN is being seen for follow-up of a hospitalization for dyspnea. Reason for Referral Specialty Diagnoses / Procedures Referred By Jack t Referred To Contact Cardiology Diagnoses Nonrheumatic aortic valve stenosis Pulmonary hypertension (CMS/HCC) Procedures Transthoracic Echo (TTE) Complete NC ECHO TRANSTHORC R-T 2D W/WO M-MODE REC F-UP/LMTD NC DOP ECHOCARD COLOR FLOW VELOCITY MAPPING NC DOP ECHOCARD PULSE WAVE W/SPECTRAL F-UP/LMTD STD Rama Kaba APRN-CELL ROOM SUPERVISOR 703 [facility] 2, [facility] [address] [place] [address] Referral ID Status Reason Start Date Expiration Date Visits Requested Visits Authorized [id number] Pending Review Perform Procedure 3 03/29/2024 1 1 Additional Source Comments INFORMATION SOURCE (unrecogn ized section and content) DATE CREATED AUTHOR 10/21/2017 [facility] DATE CREATED AUTHOR AUTHOR'S ORGANIZ ATION 10/06/2021 [facility] DATE CREATED AUTHOR AUTHOR'S ORGANIZ ATION 09/13/2022 [facility] DATE CREATED AUTHOR AUTHOR'S ORGANIZ ATION 11/02/2022 [facility] DATE CREATED AUTHOR AUTHOR'S ORGANIZ ATION 12/24/2022 [facility] DATE CREATED AUTHOR AUTHOR'S ORGANIZ ATION 12/29/2022 [facility] DATE CREATED AUTHOR AUTHOR'S ORGANIZ ATION 12/30/2022 [employer] DATE CREATED AUTHOR AUTHOR'S ORGANIZ ATION 04/07/2023 [facility] EPIC DATE CREATED AUTHOR AUTHOR'S ORGANIZ ATION 04/29/2023 [facility] REASON FOR VISIT (unrecogniz ed section and content) Reason Comments Follow-up 4m Specialty Diagnoses / Procedures Referred By Jack t Referred To Contact Cardiology Diagnoses Nonrheumatic aortic valve stenosis Pulmonary hypertension (CMS/HCC) Procedures Transthoracic Echo (TTE) Complete NC ECHO TRANSTHORC R-T 2D W/WO M-MODE REC F-UP/LMTD NC DOP ECHOCARD COLOR FLOW VELOCITY MAPPING NC DOP ECHOCARD PULSE WAVE W/SPECTRAL F-UP/LMTD STD Rama Kaba, MOLD SANDER-CELL ROOM SUPERVISOR 703 [facility] 2, [address] [address] Referral ID Status Reason Start Date Expiration Date Visits Requested Visits Authorized [id number] Pending Review Perform Procedure 3 03/29/2024 1 1 Care Team (unrecognized sect ion and content) Team Status: Active Member Role Status Dates Shawn Barber II MD Primary Care Provider Active Team Status: Inactive Member Role Status Dates Shawn Barber II MD Primary Care Provider Active Venkatesh M Valeri , DO Emergency Provider Active Gina Poole , DO Admit Provider, Attending Provider Active Hilary Antunez RN Other Provider Active Melody Canela , DO Other Provider Active Colin Carrillo MD Other Provider Active Rey Arriaga MD Other Provider Active Jeffry Hardy MD Other Provider Active Farhat Saleem MD Other Provider Active Rama Kaba , MOLD SANDER Other Provider Active Kellie Okeefe MD Other Provider Active Jack Cooley MD Other Provider Active Daniella Estrada MD Other Provider Active Sonia Urena , [facility] Other Provider Active Tatiana Shafer MD Other Provider Active Team Status: Active Member Role Status Dates Shawn Barber II MD Primary Care Provider Active Venkatesh Trammell , DO Emergency Provider Active Gina Poole , DO Admit Provider, Attending Provider Active Guest House Manager Relationship Specialty Start Date End Date Shawn Barber MD [address] [facility] [address] [place] [address] PCP - General 12/28/22 Shawn Barber MD [address] [facility] [address] [place] [address] 12/28/22 Guest House Manager Relationship Specialty Start Date End Date Shawn Barber MD [address] [facility] [address] [place] [address] PCP - General 12/28/22 Shawn Barber MD [address] [facility] [address] [place] [address] 12/28/22 Goals (unrecognized section and content) Goals may be documented in a n alternate section FOR RECORDS PERTAINING TO PATIENTS WHO ARE OR HAVE BEEN ENROLLED IN A CHEMICAL DEPENDENCY/SUBSTANCEABUSE PROGRAM, SOME INFORMATION MAY BE OMITTED. This clinical summary was aggregated from multiple sources. Caution should be exercised in using it in the provision of clinical care. This summary normalizes information from multiple sources, and as a consequence, information in this document may materially change the coding, format and clinical context of patient data. In addition, data may be omitted in some cases. CLINICAL DECISIONS SHOULD BE BASED ON THE PRIMARY CLINICAL RECORDS. [facility] [employer] [facility]. provides no warranty or guarantee of the accuracy or completeness of information in this document.
== END 2023-04-30 09:49 | disposition home or self-care (01) ==
LOC: CT 09:48
PROVIDERS: PCP Internal Medicine; Visit Provider Internal Medicine
DX: M81.0 Age-related osteoporosis without current pathological fracture (principal); F17.210 Nicotine dependence, cigarettes, uncomplicated; F17.200 Nicotine dependence, unspecified, uncomplicated
CPT/HCPCS: 71271; 77080

== ENCOUNTER 2023-05-07 14:40 | Outpatient (REF) | payer MEDICARE, OTHER, MEDICAID, SELFPAY ==
--- OUTSIDE RECORDS SUMMARY | 2023-05-07 14:51 | XMS_ITS | CCD ---
Author Name Unknown Address [address] [place] [address] Organization [facility] Care Team Providers Care Senior C Developer Name Role Phone KASANDRA BROWN Unavailable Unavailable KASANDRA BROWN Unavailable Unavailable SELF, REFERRED Unavailable Unavailable SHAWN BARBER Unavailable Unavailable Smiley Davila Unavailable SHAWN BARBER Primary Care Physician Dianne, Ziggy Unavailable JAG, DR MAHAMED Perez Admitting Unavailable JAG, DR MAHAMED Perez Attending Unavailable DR SHAWN BARBER Primary Care Unavailable DR SHAWN BARBER Primary Care Unavailable DR LALI MEHTA Admitting Unavailable MIGUEL Molina, DR ESCALERA Attending Unavailable DR LALI MEHTA Consulting Unavailable LYN PIPER Consulting Unavailable FLAKITA METZGER Consulting Unavailable SIMON NORIEGA Consulting Unavailable NALLELY RANGEL Consulting Unavailable DR SHAWN BARBER Primary Care Unavailable DIANNE, ZIGGY Attending Unavailable DIANNE, ZIGGY Admitting Unavailable DR LALI MEHTA Procedure Practitioner Unavail able DR LALI MEHTA Consulting Unavailable DR LALI MEHTA Attending Unavailable DR LALI MEHTA Admitting Unavailable DR SHAWN BARBER Primary Care Unavailable LYN THOMASON Consulting Unavailable RON TADEO Consulting Unavailable DR SHWAN BARBER Primary Care Unavailable ADELAIDA .DR JOSE Admitting Unavailable ADELAIDA ., DR JOSE Berumen Attending Unavailable TAHMINA, DR CANDACE Ambrose Consulting Unavailable ADELAIDA ., DR JOSE Berumen Consulting Unavailable DR ANITA KEYS Consulting Unavailable JOSE ALBERTO CABA Consulting Unavailable INGRID LOJA Consulting Unavailable DR SHAWN BARBER Primary Care Unavailable SALOMÓN, DR ASCENCIO Attending Unavailable SALOMÓN, DR ASCENCIO Admitting Unavailable JOHN RENEE Admitting Unavailable VÍCTOR, JOHN Attending Unavailable BARBER, DR REDDY Primary Care Unavailable VÍCTOR, JOHN Consulting Unavailable DANN, INES Consulting Unavailable BARBER, [...] Consulting Unavailable NOHEMY, MARYLOU Consulting Unavailable Briggs, Gisanjeev Consulting Unavailable LOJA, AFTAB Consulting Unavailable BARBER, DR REDDY Primary Care Unavailable HOY ., DR ESCALERA Admitting Unavailable HOY ., DR ESCALERA Attending Unavailable HOY ., DR ESCALERA Consulting Unavailable NADERER, DR ROXANA Mata Consulting Unavailable MARKER ., DR POLLOCK Consulting Unavailable ADILENE ., FLAKITA Consulting Unavailable HENRY, MADI Consulting Unavailable GINA BRITT Consulting Unavailable HEMMER, DR MAHAMED Perez Admitting Unavailable HEMMER, DR MAHAMED Perez Attending Unavailable SUNIL, DR REDDY Primary Care Unavailable HEMMER, DR MAHAMED Perez Consulting Unavailable SON ., DR JOSE Berumen Admitting Unavailable SON ., DR JOSE Berumen Attending Unavailable BARBER, DR REDDY Primary Care Unavailable SON ., DR JOSE Berumen Consulting Unavailable ELTAHAWY, DR ASCENCIO Consulting Unavailable BARBER, DR REDDY Primary Care Unavailable ELTAHAWY, DR ASCENCIO Attending Unavailable ELTAHAWY, DR ASCENCIO Admitting Unavailable SON ., DR JOSE Berumen Admitting Unavailable SON ., DR JOSE Berumen Attending Unavailable BARBER, DR REDDY Primary Care Unavailable SON ., DR GARCIA E Consulting Unavailable SILVA MAXWELL Attending Unavailable SILVA MAXWELL Attending Unavailable MADI SANCHEZ Attending Unavailable PHILL SIMPSON Attending Unavailable MARTHA Barber Primary Care Provider DO Venkatesh Trammell Emergency Provider DO Gina Poole Admit Provider [phone] DO Gina Poole Attending Provider BENITO Antunez Other Provider Unavailable DO Melody Canela Other Provider MD Colin Carrillo Other Provider MD Rey Arriaga Other Provider MD Jeffry Hardy Other Provider MD Farhat Saleem Other Provider JERMAINE Montanez Other Provider MD Kellie Okeefe Other Provider MD Jack Cooley Other Provider MD Daniella Estrada Other Provider Ayanna [facility] Sonia Faustin Other Provider [phone] MD Tatiana Shafer Other Provider [phone] Hilary Antunez Consulting Unavailable Gina Poole Admitting Unavailable Gina Poole Attending Unavailable Shawn Barber Primary Care Unavailable Melody Canela Consulting Unavailable Colin Carrillo Consulting Unavailable Rey Arriaga Consulting Unavail able Jeffry Hardy Consulting Unavailable Farhat Saleem Consulting Unavailab Annika Mckeon Consulting Unavailable Kellie Okeefe Consulting Unavailable Jack Cooley Consulting Unavailab Daniella French Consulting Unavailable Sonai Urena Consulting Unavailable Tatiana Shafer Consulting Unavailable Shawn Barber Unavailable Unavailable Unavailable Annika Kaba Referring Unavailable Annika Kaba Attending Unavailable Sunil THOMAS, Dr. Shawn Cage Primary Care Raina Shawn Mathias MD Primary Care Provider Shawn Barber MD Unavailable SHAWN BARBER Attending Unavailable Shawn Barber MD Primary Care Provider Shawn Barber MD Unavailable Lue, Jacqui M. Attending Unavailable INES WELCH Attending Unavailable Lue, Jacqui M. Referring Unavailable Lue, Jacqui M. Attending Unavailable Lue Jacqui MJesse Attending Unavailable INES WELCH Attending Unavailable Lue, Jacqui MJesse Referring Unavailable Lue, Jacqui M. Admitting Unavailable Lue, Jacqui M. Attending Unavailable Lue, Jacqui M. Admitting Unavailable Lue, Jacqui M. Attending Unavailable Lue, Jacqui M. Admitting Unavailable Lue, Jacqui M. Attending Unavailable Lani Wasserman Attending Unavailable Lue, Jacqui MJesse Attending Unavailable Allergies Allergy Classification Reported Allergen(s) Allergy Type Date of Onset Reaction(s) Facility (16 sources) GRAPEFRUIT EXTRACT; Translations: [GRAPEFRUIT] Drug Allergy 3 rash, Unknown (qualifier value) [facility] (2 sources) virgin wool Propensity to adverse reactions Unknown [facility] Other (2 sources) pinneapple Propensity to adverse reactions rash [facility] Other (13 sources) Bee/Wasp/Ant venom; Translations: [Bee Stings] Drug allergy Swelling of body region (finding) [facility] (15 sources) Naproxen; Translations: [naproxen] Drug Allergy 5 AOF, Unknown [facility] (14 sources) Pineapple; Translations: [PINEAPPLE] Drug allergy 3 Unknown (qualifier value) [facility] (1 source) Bee Sting Drug allergy Unknown [facility] Other (2 sources) Naproxen Drug Allergy 5 [facility] Repository (1 source) Naproxen; Translations: [NAPROXEN SODIUM] Drug Allergy 5 [facility] Repository (1 source) BEE VENOM PROTEIN (HONEY BEE); Translations: [BEE VENOM PROTEIN (HONEY BEE)] Propensity to adverse reactions to drug (disorder) 3 [facility] Repository (1 source) WOOL; Translations: [WOOL] Propensity to adverse reactions to drug (disorder) 3 [facility] Repository (1 source) No Known Medication Allergies; Translations: [No Known Medication Allergies] Propensity to adverse reactions (disorder) [facility] Repository Medications Current Medications Medication Drug Class(es) Dates Sig (Normalized) Sig (Original) acetaminophen 325 mg / HYDROcodone bitartrate 5 mg oral tablet (11 sources) Opioid Agonist Start: 12-29-2022 acetaminophen-hydr ocodone [...] hrs Active albuterol 0.83 mg/ml inhalation solution (13 sources) beta2-Adrenergic Agonist Start: 11-19-2022 take 2.5 [...] hrs Active ALPRAZolam 1 mg oral tablet (19 sources) Benzodiazepine Start: 02-03-2023 alprazolam 1 m [...] day Active apixaban 5 mg oral tablet (11 sources) Factor Xa Inhibitor Start: 12-29-2022 Eliquis [...] 0 Active atorvastatin 20 mg oral tablet (16 sources) HMG-CoA Reductase Inhibitor Start: 08-16-2014 take [...] day Active brexpiprazole 1 mg oral tablet (20 sources) Atypical Antipsychotic Start: 11-18-2022 take 1 tablet by mouth once daily at bedtime Brexpiprazole (Rexulti) 1 mg tablet Active 1 MG PO Daily at bedtime November 18, 2022 12:00am Start: 03-11-2021 take 4 tablets by mo [facility] once daily Rexulti 0.25 mg oral tablet mg tab(s), Oral, Daily, Refills(s) 0, Depression Start Date: 03/11/21 Status: Ordered take 1 tablet by marshal th every twenty-four hours Rexulti 2 MG 1 tablet Orally Once a day Active take 1 tablet by marshal th every twenty-four hours Rexulti 0.5 MG 1 tablet Orally Once a day Active bumetanide 1 mg oral tablet (13 sources) Loop Diuretic Start: 12-29-2022 bumetanide 1 [...] Active calcium carbonate 500 mg chewable tablet (3 sources) calcium carbonat e (Tums) 200 mg [...] Status: Ordered ciprofloxacin 500 mg oral tablet (5 sources) Quinolone Antimicrobial Start: 02-23-20 End: 03-01-20 take 1 tablet by mouth every twelve hours Cipro 500 mg Tab 500 mg = 1 tab(s), Oral, q12hr, X 7 day(s), # 14 tab(s), Refills(s) 0, Pharmacy: [facility], 153, cm, 02/12/23 11:42:00 EDT, Height/Length Dosing, 68.3, kg, 02/03/23 9:09:00 EDT, Weight Dosing Start Date: 02/22/23 Stop Date: 03/01/23 Status: Ordered Start: 02-03-2023 End: 02-06-2023 take 1 tablet by mouth twice daily Cipro 500 mg Tab 500 mg = 1 tab(s), Oral, BID, X 3 day(s), # 6 tab(s), Refills(s) 0, Pharmacy: [facility], 153, cm, 02/03/23 9:09:00 EDT, Height/Length Dosing, 68.3, kg, 02/03/23 9:09:00 EDT, Weight Dosing Start Date: 02/03/23 Stop Date: 02/06/23 Status: Ordered cyclobenzaprine hydrochloride 10 mg oral tablet (11 sources) Muscle Relaxant Start: 11-18-2022 cyclobenzaprin e 10 mg Tab Refills(s) 0 Start Date: 12/29/22 Status: Ordered take 1 tablet by marshal th every twenty-four hours Cyclobenzaprine HCl 10 MG 1 tablet at bedtime as needed Orally Once a day Active dapagliflozin 10 mg oral tablet (10 sources) Sodium-Glucose Cotransporter 2 Inhibitor Start: 11-18-2022 Farxiga 10 mg oral tablet Refills(s) 0 Start Date: 12/29/22 Status: Ordered dexamethasone 1 mg oral tablet (3 sources) Corticosteroid Start: 06-10-2022 take 1 tablet by mouth once dexamethasone 1 mg oral tablet 1 mg = 1 tab(s), Oral, Once, take at 11pm. complete cortisol level at 8am., # 1 tab(s), Refills(s) 0, Pharmacy: [facility], 154, cm, 06/10/22 10:26:00 EST, Height/Length Dosing, 86, kg, 06/10/22 10:26:00 EST, Weight Dosing Start Date: 06/10/22 Status: Ordered 0.5 ml dulaglutide 1.5 mg/ml auto-injector (19 sources) GLP-1 Receptor Agonist Start: 11-18-2022 Dulaglutide [...] x 1 month, then 2x/week for maintainence, [facility], 153, cm, 02/03/23 9:09:00 EDT, [...] Status: Ordered FLUoxetine 40 mg oral capsule (20 sources) Serotonin Reuptake Inhibitor Start: 08-16-2014 take 40 mg by mouth once daily fluoxetine 40 mg, Oral, Daily, Refills(s) 0, Depression Start Date: 08/16/14 Status: Ordered take 1 capsule by [facility] every twenty-four hours FLUoxetine HCl 20 MG 1 capsule Orally Once a day Active Fluticasone Propion-Salmeterol (19 sources) Corticosteroid, beta2-Adrenergic Agonist Start: 11-18-2022 Fluticasone Propion-Salmeterol (Advair Diskus) 250-50 mcg/dose blister with device Active 2 INH INHALATION Four times daily November 18, 2022 12:00am Start: 05-11-2017 take 1 puff(s) by in halation twice daily Advair 250 mcg-50 mcg Powder 1 puff(s), Inhalation, BID, Refill(s) 0, Shortness of breath or wheezing Start Date: 05/11/17 Status: Ordered take 1 puff(s) by mo [facility] twice daily fluticasone propion-salmeteroL (Advair Diskus) 250-50 [...] directed Orally TWICE A DAY Active Keppra (4 sources) Start: 04-28-2023 Keppra BID, Refills(s) 0 Start Date: 04/28/23 Status: Ordered take 1 tablet by mouth twice cha ly levETIRAcetam (Keppra) 500 mg tablet Take 1 tablet (500 mg) by mouth 2 times a day. 0 Active lisinopril 20 mg oral tablet (15 sources) Angiotensin Converting Enzyme Inhibitor Start: 08-16-2014 [...] Ordered magnesium oxide 400 mg oral tablet (10 sources) Start: 11-18-2022 End: 01-27-2023 magnesium oxide 400 mg Tab Refills(s) 0 Start Date: 12/29/22 Status: Ordered magnesium oxide (Mag-Ox) 400 mg tablet 1 tablet (400 mg) once daily. 0 Active metoclopramide 10 mg oral tablet (12 sources) Dopamine-2 Receptor Antagonist Start: 01-25-2020 Reglan 10 mg Tab 10 mg = 1 tab(s), Oral, QIDACHS, # 1 tab(s), Refills(s) 0, Pharmacy: [facility], 154, cm, 01/25/20 14:09:00 EDT, Height/Length Dosing, 88.5, kg, 01/25/20 14:09:00 EDT, Weight Dosing Start Date: 01/25/20 Status: Ordered metOLazone 2.5 mg oral tablet (9 sources) Thiazide-like Diuretic Start: 11-20-2022 metolazone 2.5 mg Tab Refills(s) 0 Start Date: 12/29/22 Status: Ordered metoprolol tartrate 50 mg oral tablet (20 sources) beta-Adrenergic Georgie Start: 08-16-2014 take 1 [...] Daily, # 30 tab(s), Refills(s) 6, Pharmacy: [facility], 153, cm, 04/28/23 9:47:00 EST, [...] day Active ondansetron 4 mg oral tablet (8 sources) Serotonin-3 Receptor Antagonist Start: 12-29-2022 ondansetron 4 mg Tab Refills(s) 0 Start Date: 12/29/22 Status: Ordered oxygen (O2) gas therapy (3 sources) oxygen (O2) gas therapy Inhale 1 each continuously. 0 Active polyethylene glycol 3350 67696 mg powder for oral solution (4 sources) Osmotic Laxative Start: 08-08-2020 Miralax 3350 17 gram packet 17 gram, Oral, Daily, # 255 gram, Refills(s) 3, Pharmacy: [facility], 154, cm, 08/08/20 12:03:00 EDT, Height/Length Dosing, 88.1, kg, 08/08/20 12:03:00 EDT, Weight Dosing Start Date: 08/08/20 Status: Ordered polyethylene glycol 3350 790510 mg / potassium chloride 1480 mg / sodium bicarbonate 5720 mg / sodium chloride 30126 mg powder for oral solution (2 sources) Osmotic Laxative Start: 12-31-2021 NuLYTELY Crane oral powder for reconstitution See Instructions, 1 EA, Refill(s) 0, Prior to colonoscopy., [facility], 154, cm, 12/31/21 14:58:00 EDT, Height/Length Dosing, 79.4, kg, 12/31/21 14:58:00 EDT, Weight Dosing Start Date: 12/31/21 Status: Ordered polymyxin b 42415 unt/ml / trimethoprim 1 mg/ml ophthalmic solution (1 source) Dihydrofolate Reductase Inhibitor Antibacterial, Polymyxin-class Antibacterial Start: 12-13-2021 take 1 drop(s) into the eye(s) four times daily Polymyxin B-Trimethoprim 82826-7.1 UNIT/ML 1 drop into affected eye Ophthalmic [...] Ordered promethazine hydrochloride 25 mg oral tablet (11 sources) Phenothiazine Start: 05-11-2017 take 25 mg [...] day(s), # 90 cap(s), Refills(s) 0, Pharmacy: [facility], 154, cm, 12/31/21 14:58:00 EDT, Height/Length Dosing, 79.4, kg, 12/31/21 14:58:00 EDT, Weight Dosing Start Date: 12/31/21 Stop Date: 03/31/22 Status: Ordered tiZANidine 4 mg oral tablet (20 sources) Central alpha-2 Adrenergic Agonist Start: 11-18-2022 take 4 mg by mouth three times daily Tizanidine Active 4 MG PO Three times daily November 18, 2022 12:00am Start: 09-10-2020 take 1 mg by mouth t hree times daily tizanidine 4 mg oral capsule mg cap(s), Oral, TID, Refills(s) 0, Spasm Start Date: 09/10/20 Status: Ordered take 1 tablet by marshal every twelve hours tiZANidine HCl 4 MG [...] suspension (2 sources) Corticosteroid Start: 12-13-2021 Kenalog-40 Dec, 40 mg Problems Active Problems Problem Classification [...] unspecified] Onset: 3 11-07-2019 Chronic Cardiac dysrhythmias (12 sources) Unspecified atrial fibrillation; Translations: [Paroxysmal atrial fibrillation] Onset: 2 Chronic Chronic kidney disease (7 sources) Chronic kidney disease; Translations: [Chronic kidney [...] Onset: 3 Chronic Diabetes mellitus without complication (18 sources) Type 2 diabetes mellitus without complications; Translations: [Diabetes mellitus] Onset: 8 11-07-2019 Chronic Disorders of lipid metabolism (5 sources) Pure hypercholesterolemia, unspecified; Translations: [Mixed hyperlipidemia] Onset: 3 03-30-2023 Chronic Diverticulosis and diverticulitis (1 source) Diverticulosis of large intestine without perforation or abscess without bleeding; Translations: [DVRTCLOS OF LG INT W/O PERFORATION OR ABSCESS W/O BLEEDING] Onset: 8 Chronic Esophageal disorders (15 sources) Haddad's esophagus; Translations: [Haddad's esophagus without dysplasia] Onset: 2 Chronic Essential hypertension (6 sources) Essential (primary) hypertension; Translations: [Essential hypertension] Onset: 2 Chronic Genitourinary symptoms and ill-defined conditions (3 sources) Incontinence without sensory awareness 02-03-2023 Chronic Genitourinary symptoms and ill-defined conditions (20 sources) Retention of urine; Translations: [Retention of urine, unspecified] Onset: 3 Episodic Heart valve disorders (12 sources) Nonrheumatic aortic (valve) stenosis; Translations: [Rheumatic [...] 11-07-2019 Chronic Other aftercare (2 sources) Other intermediate (current) drug therapy; Translations: [OTHER [facility] (CURRENT) DRUG THERAPY] Onset: 8 Episodic Other aftercare (1 source) terminal gauger supervisor (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) use of anticoagulants; Translations: [[facility] CURRNT USE ANTICOAGULANTS] Onset: 3 Episodic Other aftercare (1 source) terminal gauger supervisor (current) use of inhaled steroids; Translations: [SAFETY GROOVING MACHINE OPERATOR USE OF INHALED STEROIDS] Onset: 3 Episodic Other aftercare (5 sources) Drug therapy finding; Translations: [Long-term (current) [...] Chronic Other nutritional; endocrine; and metabolic disorders (4 sources) Body mass index 30+ - obesity; Translations: [Body mass index (BMI) 31.0-31.9, adult] Onset: 3 03-30-2023 Chronic Other nutritional; endocrine; and metabolic disorders (1 source) Overweight in adulthood with body mass index of 25 or more but less than 30; Translations: [Overweight] Episodic Other screening for suspected conditions (not mental disorders or infectious disease) (5 sources) Echocardiogram abnormal; Translations: [Nonspecific (abnormal) findings on radiological and other examination of other intrathoracic organs] Onset: 3 03-30-2023 Episodic Peripheral and visceral atherosclerosis (1 source) Atherosclerosis of aorta; Translations: [ATHEROSCLEROSIS OF AORTA] Onset: 8 Chronic Pneumonia (except that caused by tuberculosis or sexually transmitted disease) (2 sources) Pneumonia, unspecified organism; Translations: [PNEUMONIA UNSPECIFIED ORGANISM] Onset: 2 Episodic Pulmonary heart disease (12 sources) Pulmonary hypertension, unspecified; Translations: [Pulmonary hypertension] [...] with hypoxia] Onset: 3 Chronic Substance-related disorders (6 sources) Nicotine dependence, cigarettes, uncomplicated; Translations: [Smoker] [...] 3 UNSP] Onset: 3 Unclassified (1 source) 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 GROOVING MACHINE OPERATOR INJECT NONINSULN ANTIDIAB; Translations: [SAFETY GROOVING MACHINE OPERATOR INJECT NONINSULN ANTIDIAB] Onset: 3 Unclassified (1 [...] fatigue; Translations: [Weakness] Onset: Episodic Mood disorders (3 sources) Mood disorders; Translations: [DEPRESSION UNSPECIFIED] Onset: 04-23-2023 Other aftercare (1 source) skilled nursing (current) use of aspirin; Translations: [SAFETY GROOVING MACHINE OPERATOR CURRENT USE OF ASPIRIN] Onset: Episodic Other aftercare (1 source) terminal gauger supervisor (current) use of insulin; Translations: [SAFETY GROOVING MACHINE OPERATOR CURRENT USE OF INSULIN] Onset: Episodic Other [...] with and (suspected) exposure to COVID19] Unclassified (3 sources) Onset: 023 03-30-2023 Results Test Name Value Interpretation Reference Range Facil ity Screenson 04-30-2023 Screens [id number] 20 [id number]#[id number] 0TIFF Normal [facility] US Heart TransthoracicOrdere d By: Colin Carrillo on 04-30-2023 Aortic Valve Area by Continuity of Peak Velocity 1.21 [facility] Work Phone: Aortic Valve Area by Continuity of VTI 1.29 [facility] Work Phone: AV mn grad 15.0 [facility] Work Phone: AV pk grad 28.9 [facility] Work Phone: AV pk amrit 2.69 [facility] Work Phone: LV A4C EF 43.9 [facility] Work Phone: LVIDd 3.90 [facility] Work Phone: LVOT diam 2.10 [facility] Work Phone: MV avg E/e' ratio 18.50 [facility] Work Phone: MV E/A ratio 0.76 [facility] Work Phone: RVSP 34.6 [facility] Work Phone: [facility] Work Phone: Heart Transthoracicon [facility] [address] [place] [address], [address], [place] [address] TRANSTHORACIC ECHOCARDIOGRAM REPORT Patient Name: MARTIN Cuba Physician: [id number] Colin Carrillo MD, [facility] Study Date: 04/29/2023 Ordering Provider: [id number] ANNIKA KABA MRN/PID: [id number] Fellow: Nurse: Date of /Age: 8 1950 / 72 years 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 PHYSICIAN INTERPRETATION: Left Ventricle: Left ventricular systolic function is normal, with an estimated ejection fraction of 60%. There are no regional wall motion abnormalities. The left ventricular cavity size is normal. Spectral Doppler shows an impaired relaxation pattern of left ventricular diastolic filling. There is an elevated mean left atrial pressure. Mild concentric left ventricular hypertrophy. Left Atrium: The left atrium is mildly dilated. Right Ventricle: The right ventricle is normal in size. There is normal right ventricular global systolic function. Right Atrium: The right atrium is normal in size. Aortic Valve: The aortic valve is trileaflet. There is no evidence of aortic valve regurgitation. The peak instantaneous gradient of the aortic valve is 28.9 mmHg. The mean gradient of the aortic valve is 15.0 mmHg. The aortic valve is trileaflet and is calcified. The peak velocity across the valve measures 270 cm/s corresponding to a peak pressure gradient of 30 mmHg and a mean pressure gradient of 15 mmHg, aortic valve area measured 1.2 cm , this is consistent with mild to moderate aortic stenosis. Mitral Valve: The mitral valve is moderately thickened. There is moderate to severe mitral annular calcification. There is trace mitral valve regurgitation. Tricuspid Valve: The tricuspid valve is structurally normal. There is trace tricuspid regurgitation. Pulmonic Valve: The pulmonic valve is structurally normal. There is trace pulmonic valve regurgitation. Pericardium: There is no pericardial effusion noted. Aorta: The aortic root is normal. Systemic Veins: The inferior vena cava appears to be of normal size. CONCLUSIONS: 1. Left ventricular systolic function is normal with a 60% estimated ejection fraction. 2. Mild concentric left ventricular hypertrophy. 3. Spectral Doppler shows an impaired relaxation pattern of left ventricular diastolic filling. 4. There is an elevated mean left atrial pressure. 5. The mitral valve is moderately thickened. 6. There is moderate to severe mitral annular calcification. 7. The aortic valve is trileaflet and is calcified. The peak velocity across the valve measures 270 cm/s corresponding to a peak pressure gradient of 30 mmHg and a mean pressure gradient of 15 mmHg, aortic valve area measured 1.2 cm , this is consistent with mild to moderate aortic stenosis. QUANTITATIVE DATA SUMMARY: 2D MEASUREMENTS: Normal Ranges: Ao Root d: 2.80 cm (2.0-3.7cm) LAs: 3.90 cm (2.7-4.0cm) RVIDd: 3.10 cm (0.9-3.6cm) IVSd: 1.50 cm (0.6-1.1cm) LVPWd: 1.20 cm (0.6-1.1cm) LVIDd: 3.90 cm (3.9-5.9cm) LVIDs: 2.90 cm LV Mass Index: 112.2 g/m2 LV % FS 25.6 % LV SYSTOLIC FUNCTION BY 2D PLANIMETRY (MOD): Normal Ranges: EF-A4C View: 43.9 % (>=55%) LV DIASTOLIC FUNCTION: Normal Ranges: MV Peak E: 0.90 m/s (0.7-1.2 m/s) MV Peak A: 1.19 m/s (0.42-0.7 m/s) E/A Ratio: 0.76 (1.0-2.2) MV lateral e' 0.05 m/s MV medial e' 0.06 m/s E/e' Ratio: 18.50 (<8.0) MITRAL VALVE: Normal Ranges: MV Vmax: 1.35 m/s (<=1.3m/s) MV peak P.3 mmHg (<5mmHg) MV mean P.0 mmHg (<48mmHg) MITRAL INSUFFICIENCY: Normal Ranges: MR Vmax: 388.00 cm/s AORTIC VALVE: Normal Ranges: AoV Vmax: 2.69 m/s (<=1.7m/s) AoV Peak P.9 mmHg (<20mmHg) AoV Mean P.0 mmHg (1.7-11.5mmH (more content not included)... 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 PHYSICIAN INTERPRETATION: Left Ventricle: Left ventricular systolic function is normal, with an estimated ejection fraction of 60%. There are no regional wall motion abnormalities. The left ventricular cavity size is normal. Spectral Doppler shows an impaired relaxation pattern of left ventricular diastolic filling. There is an elevated mean left atrial pressure. Mild concentric left ventricular hypertrophy. Left Atrium: The left atrium is mildly dilated. Right Ventricle: The right ventricle is normal in size. There is normal right ventricular global systolic function. Right Atrium: The right atrium is normal in size. Aortic Valve: The aortic valve is trileaflet. There is no evidence of aortic valve regurgitation. The peak instantaneous gradient of the aortic valve is 28.9 mmHg. The mean gradient of the aortic valve is 15.0 mmHg. The aortic valve is trileaflet and is calcified. The peak velocity across the valve measures 270 cm/s corresponding to a peak pressure gradient of 30 mmHg and a mean pressure gradient of 15 mmHg, aortic valve area measured 1.2 cm , this is consistent with mild to moderate aortic stenosis. Mitral Valve: The mitral valve is moderately thickened. There is moderate to severe mitral annular calcification. There is trace mitral valve regurgitation. Tricuspid Valve: The tricuspid valve is structurally normal. There is trace tricuspid regurgitation. Pulmonic Valve: The pulmonic valve is structurally normal. There is trace pulmonic valve regurgitation. Pericardium: There is no pericardial effusion noted. Aorta: The aortic root is normal. Systemic Veins: The inferior vena cava appears to be of normal size. CONCLUSIONS: 1. Left ventricular systolic function is normal with a 60% estimated ejection fraction. 2. Mild concentric left ventricular hypertrophy. 3. Spectral Doppler shows an impaired relaxation pattern of left ventricular diastolic filling. 4. There is an elevated mean left atrial pressure. 5. The mitral valve is moderately thickened. 6. There is moderate to severe mitral annular calcification. 7. The aortic valve is trileaflet and is calcified. The peak velocity across the valve measures 270 cm/s corresponding to a peak pressure gradient of 30 mmHg and a mean pressure gradient of 15 mmHg, aortic valve area measured 1.2 cm , this is consistent with mild to moderate aortic stenosis. QUANTITATIVE DATA SUMMARY: 2D MEASUREMENTS: Normal Ranges: Ao Root d: 2.80 cm (2.0-3.7cm) LAs: 3.90 cm (2.7-4.0cm) RVIDd: 3.10 cm (0.9-3.6cm) IVSd: 1.50 cm (0.6-1.1cm) LVPWd: 1.20 cm (0.6-1.1cm) LVIDd: 3.90 cm (3.9-5.9cm) LVIDs: 2.90 cm LV Mass Index: 112.2 g/m2 LV % FS 25.6 % LV SYSTOLIC FUNCTION BY 2D PLANIMETRY (MOD): Normal Ranges: EF-A4C View: 43.9 % (>=55%) LV DIASTOLIC FUNCTION: Normal Ranges: MV Peak E: 0.90 m/s (0.7-1.2 m/s) MV Peak A: 1.19 m/s (0.42-0.7 m/s) E/A Ratio: 0.76 (1.0-2.2) MV lateral e' 0.05 m/s MV medial e' 0.06 m/s E/e' Ratio: 18.50 (<8.0) MITRAL VALVE: Normal Ranges: MV Vmax: 1.35 m/s (<=1.3m/s) MV peak P.3 mmHg (<5mmHg) MV mean P.0 mmHg (<48mmHg) MITRAL INSUFFICIENCY: Normal Ranges: MR Vmax: 388.00 cm/s AORTIC VALVE: Normal Ranges: AoV Vmax: 2.69 m/s (<=1.7m/s) AoV Peak P.9 mmHg (<20mmHg) AoV Mean P.0 mmHg (1.7-11.5mmHg) LVOT Max Amrit: 0.94 m/s (<=1.1m/s) AoV VTI: 58.00 cm (18-25cm) LVOT VTI: 21.60 cm LVOT Diameter: 2.10 cm (1.8-2.4cm) AoV Area, VTI: 1.29 cm2 (2.5-5.5cm2) AoV Area,Vmax: 1.21 cm2 (2.5-4.5cm2) AoV Dimensionless Index: 0.37 TRICUSPID VALVE/RVSP: Normal Ranges: Peak TR Velocity: 2.81 m/s RV Syst Pressure: 34.6 mmHg (< 30mmHg) PULMONIC VALVE: Normal Ranges: PV Max Amrit: 0.9 m/s (0.6-0.9m/s) PV Max P.3 mmHg [id number] Colin Carrillo MD, [facility] Electronically signed on 04/30/2023 at 3:47:08 PM Final (more content not included)... [facility] Work Phone: Ambulatory Visit Summaryon 1 06-29-2022 Ambulatory Visit Summary MARTIN HAGEN :1950 Visit Date:04/28/2023 Ambulatory Visit Instructions Your Diagnosis Recurrent UTI Pneumaturia Adrenal mass Urinary retention Renal cyst Urgency of urination Your Care Team Attending Physician - Alec XIE, Jacqui Nieves Primary Care Physician - SHAWN BARBER MD Referring Physician - Alec XIE, Jacqui Nieves This Is Your Medications List estradiol topical [...] PM EST With: Lani Wasserman CNP Where: [facility] Ambulatory Visit Summary MARTIN HAGEN :1950 Visit Date:04/28/2023 Ambulatory Visit Instructions Your Diagnosis Recurrent UTI Pneumaturia Adrenal mass Urinary retention Renal cyst Urgency of urination Your Care Team Attending Physician - Jacqui Michael MD. Primary Care Physician - SHAWN BARBER MD Referring Physician - Jacqui Michael MD. This Is Your Medications List estradiol topical [...] PM EST With: Lani Wasserman CNP Where: [facility] Patient Educationon 04-28-20 Patient Education Obstetrics [...] these instructions at home: Medicines ? Take lvkx-zxz-vtziycq and prescription medicines only as told by [...] provider. Document Revised: 11/29/2020 Document Reviewed: 11/29/2020 [email or web address] Patient Education ? 2022 [employer]. [facility] Urology Office/Clinic Noteon 04-28-2023 Urology Office/Clinic Note [...] saw PCP +C&S: 12/19/22 >100k Klebsiella pneumoniae ( obtained sample), started on Wednesday w/Cephalexin 500mg BID x 10 days. +C&S: 02/03/23 >100,000 cfu/ml Klebsiella pneumoniae <10,000 cfu/ml Mixed [...] -likely due to (more content not included)... [facility] Comment on above: Result Comment: Elec tronically Signed By: Jacqui Michael MD\.br\Date and Time Signed: 04/28/23 10:55 EST\.br\Electronically Co-Signed By: Brisa Russell.br\Date and Time Co-Signed: 04/28/23 10:25 EST Physician Referralon 023 Physician Referral [id number] 0TIFF [facility] Physician Referralon 023 Physician Referral [id number] 0TIFF [facility] Consent for Procedure/Surger yon 02-22-2023 Consent for Procedure/Surgery [id number]. 00TIFF [facility] Consent for Treatmenton 02-01 Consent for Treatment [id number] 0TIFF [facility] Inpatient Patient Summaryon 02-22-2023 Inpatient Patient Summary [address] [address] Clinical Summary Person Information Name: MARTIN HAGEN Age: 72 Years : 1950 Sex: Female PCP: SHAWN BARBER MD Marital Status: Race: White Ethnicity: Non- or Language: Occitan Visit Id: Visit Reason: RECURRENT UTI Speciality: Acuity: Enc Type: Outpatient Med Service: Surgery Arrival: 02/22/2023 09:20:37 Discharge: Dispo Type: Address: [address] [place] [phone] Provider Notes: Diagnosis: Emphysematous cystitis; Pneumaturia; Recurrent [...] up: With: Address: When: Jacqui Michael [address], [place] [phone] Business (1) [address], [place] [address], [facility] [address] [place] [phone] Business (1) Comments: Office to schedule follow up in 1 to 2 months Patient Education Information: EU - Cystoscopy Discharge Instructions (CUSTOM) [facility] IntraOperative Documentson 1 IntraOperative Documents [id number]. 00TIFF [facility] Main OR Intraoperative Recor don 02-22-2023 Main OR Intraoperative Record IntraOp Document Type FTURO Summary Primary Physician: Jaqcui Michael MD Finalized Date/Time: 02/22/23 10:39:48 Pt. Name: MARTIN HAGEN/Sex: 1950 Female Med Rec #: [id number] Physician: Jacqui Michael MD Financial #: [id number] Pt. Type: O Room/Bed: / Admit/Disch: 02/22/23 09:20:37 - Institution: Case Times FTURO Entry 1 Patient Times In Room 02/22/23 10:18:00 Out Room 02/22/23 10:35:00 Procedure Times Start 02/22/23 10:23:00 Stop 02/22/23 10:29:00 Anesthesia Times Last Modified By: Keisha Pride RN 02/22/23 10:35:59 Case Attendance FTURO Entry 1 Entry 2 Entry 3 Case Attendee Jacqui Michael MD, CST, Keisha Moore RN Role Performed Surgeon - Primary Scrub - Primary Residential Monitor - Primary Time In 02/22/23 10:18:00 02/22/23 10:18:00 02/22/23 10:18:00 Time Out 02/22/23 10:35:00 02/22/23 10:35:00 02/22/23 10:35:00 Procedure CYSTOSCOPY LOCAL(.) CYSTOSCOPY LOCAL(.) CYSTOSCOPY LOCAL(.) Comments Last Modified By: Keisha Pride RN, RN, Keisha Mcnamara RN 02/22/23 10:36:00 02/22/23 10:36:00 02/22/23 10:36:00 Surgical [...] Out Jacqui Michael MD, Verified (If Participants Berta CONNELL, Keisha Applicable) Shannen Mata RN, Kimberly Y Time [...] By: Keisha Pride RN 02/22/23 10:39 [facility] Main OR Preoperative Recordo n 02-22-2023 Main OR Preoperative Record Holding Area Document Type FTURO Summary Primary Physician: Jacqui Michael MD Finalized Date/Time: 02/22/23 10:13:17 Pt. Name: MARTIN HAGEN/Sex: 1950 Female Med Rec #: [id number] Physician: Jacqui Michael MD Financial #: [id number] Pt. Type: O Room/Bed: / Admit/Disch: 02/22/23 [...] Comment: chronic back pain Skin Integrity Intact, [place], Warm, & Dry Vitals - EU Blood Pressure 92/54 Pulse 69 bpm Respirations 20 br/min SPO2 99 % RN Reviewed Yes Last Modified By: Keisha Pride RN 02/22/23 10:13:16 General Comments: Temp 36.6 Finalized By: Keisha Pride RN Document Signatures Signed By: Becka Arredondo LPN 02/22/23 09:34 Keisha Pride RN 02/22/23 10:13 [facility] Operative Reporton Operative Report Patient: LAVELLE HAGEN Age: 72 years Sex: Female : 1950 Associated Diagnoses: None Author: Jacqui Michael MD Procedure Operative Information Details: Date/ Time: 02/22/2023 10:33:00. Pre-Op Dx: Emphysematous cystitis (YHH57-MZ N30.80, Discharge, Medical), Pneumaturia (AFT70-TL R39.89, Discharge, Medical), Recurrent UTI (IWH42-ME N39.0, Discharge, Medical). Post-Op Dx: Same. Anesthesia [...] -Follow-up in 1 to 2 months.. [facility] Comment on above: Result Comment: Elec tronically Signed By: Jacqui Michael MD\.br\Date and Time Signed: 02/22/23 10:37 EDT Outpatient Surgery Discharge Instructionon 02-22-2023 Outpatient Surgery Discharge Instruction [address] [address] Patient Discharge Instructions PERSON INFORMATION Name: MARTIN [...] up: With: Address: When: Jacqui Michael [address] [place] [phone] Business (1) [address], [place] [address], [facility] [address] [place] [phone] Business (1) Comments: Office to schedule follow [...] to serve you. Thank you for choosing [facility] Lab Reportson 02-10-2023 Lab Reports [id number] 0TIFF [facility] C Urineon 02-05-2023 Bacteria identified Cx [...] Locations R1: This test was performed at: [facility], [address] [place] [address], [address]- , , [facility] Comment on above: Performed By: #### 2 [id number] ####[place] [id number] [place] [address] Patient Educationon 02-04-20 23 Patient Education Obstetrics [...] these instructions at home: Medicines ? Take hkws-rlw-okidmjs and prescription medicines only as told by [...] provider. Document Revised: 11/29/2020 Document Reviewed: 11/29/2020 [employer] Patient Education ? 2022 [employer]. [facility] Screenson 02-03-2023 Screens [id number]. 00CD:127 [facility] Urology Office/Clinic Noteon 02-03-2023 Urology Office/Clinic [...] 2.7 (6.2 (more content not included)... [facility] Comment on above: Result Comment: Elec tronically Signed By: Jacqui Michael MD\.br\Date and Time Signed: 02/03/23 10:45 EDT\.br\Electronically Co-Signed By: Brisa Russell\.br\Date and Time Co-Signed: 02/03/23 10:02 EDT\.br\Electronically Co-Signed By: Brisa Russell\.br\Date and Time Co-Signed: 02/03/23 10:12 EDT [place] 12-31-2022 Screens [id number] 0CD:127 [facility] Ambulatory Visit Summaryon 0 12-29-2022 Ambulatory Visit Summary MARTIN HAGEN :1950 Visit Date:12/29/2022 Ambulatory Visit Instructions Your Diagnosis UTI (urinary tract infection) Pneumaturia Adrenal mass Urinary retention Renal cyst Your Care Team Attending Physician - DANN العلي, INES Berumen Primary Care Physician - SUNIL XIE, SHAWN Pearson This Is Your Medications List Contact prescribing [...] XIE, Jacqui Nieves Where: [facility] Patient Educationon 12-30-19 Patient Education Obstetrics and Gynecology Urinary Tract [...] this condition includes: ? Antibiotic medicine. ? Onzd-cic-gjhxgss medicines to treat discomfort. ? Drinking enough [...] these instructions at home: Medicines ? Take grbb-zcx-ovjcgjr and prescription medicines only as told by [...] Document Revie (more content not included)... [facility] Urology Office/Clinic Noteon 12-29-2022 Urology Office/Clinic Note Chief Complaint UTI HPI Staff KML pt. Last seen in our office by KML 07/29/22 due to Adrenal Mass, Urinary Retention, and Renal Cyst. Has 6 mos f/u appt w/KML on 02/03/23. Pt is here today due to recent UTI BMP 11/24/22 *BUN 35.0 & Crea 1.83 +UACS 12/19/22 >100k Klebsiella pneumoniae Tx'd w/Cephalexin 500mg BID h60esso Pt just started taking on Wednesday. Increased urgency. Odor to urine. Increased leaking. Home Health Nurse took sample to [facility]. Pt states she had air in bladder. [...] Skin: No rashes or suspicious lesions Assessment/Plan KML patient, present with daughter. BBSQ - 21 1. UTI (urinary tract infection) (N39.0: Urinary tract infection, site not specified) pt started w Increased urgency, odor to urine, increased leaking. saw PCP + culture: 12/19/22 >100k Klebsiella pneumoniae ( obtained sample) Just started on Wednesday w/Cephalexin [...] given stability and metabolic workup wnl Ordered: 64339 Measure Post Void residual urine and/or bladder [...] Tract Infection, Adult Documentation recorded by the tk Ramirez accurately reflects the services(s) I performed [...] Psoriatic arthrit (more content not included)... [facility] Comment on above: Result Comment: Elec tronically Signed By: INES WELCH PA-C\.br\Date and Time Signed: 12/29/22 15:25 EDT\.br\Electronically Co-Signed By: Danielle Ramirez.br\Date and Time Co-Signed: 12/29/22 15:05 EDT Office [...] depressive disorder PHQ2 Screen Positive; Status:Complete; Done: [id number] Overweight with body mass index (BMI) of 29 to 29.9 in adult Healthy Weight Tips; Status:Complete; Done: [id number] SocHx: Current smoker Tobacco Use Screening; Status:Complete; Done: [id number] You need to stop smoking. Though it is not easy, more than half of all adult smokers have quit. We encourage you to write down all the reasons you should quit smoking and set a quit date for yourself. Ask us how we can help. You may also call 8-286-PRQE-NOW for free resources and assistance.; Status:Complete; Done: [id number] Tobacco Use Screening; Status:Complete; Done: [id number] Patient Instructions Please bring all medicines, vitamins, [...] to continue without modifications. 2. Records from [facility] 3. Return for follow-up; in the interim, contact the office if new symptoms arise. Dr. Arriaga 4 months Chief Complaint Hospital f/u: 'doing ok' MARTIN HAGEN is being seen for follow-up of a hospitalization for dyspnea. Patient presents to the office in a wheelchair, utilizing oxygen and is accompanied by family member. This is initial in clinic follow-up at [facility]. She has previously been managed by [facility] since approximately 2021. Both she and [...] are requesting to establish cardiology follow-up with [facility]. October 2022 hospitalized at [facility] due to shortness of breath, seen in consultation by Dr. Jean. Echocardiogram at that time showed moderate aortic stenosis peak 46, mean 26. She was diuresed and some documentation that she was to follow-up with nephrology (not completed to date). Reportedly went to [facility] for comprehensive rehabilitation program but is currently [...] regular basis (more content not included)... [facility] Tobacco Screening.on 023 Adult depression screening assessment Yes [facility] DO Work Phone: Adult depression screening assessment Moderate (10-14) [facility] DO Work Phone: Fall risk assessment a) No falls within the last year [facility] [employer] 250 DO Work Phone: Tobacco use status CP a) Yes [facility] [employer] demi 250 DO Work Phone: Tobacco Screening. Yes [facility] demi 250 DO Work Phone: [phone] Tobacco Screening. 1-Several days [facility] [employer] demi 250 DO Work Phone: Tobacco Screening. 3-Nearly every day [facility] DO Work Phone: Tobacco Screening. 0-Not at all [facility] 250 DO Work Phone: Tobacco Screening. Somewhat Difficult [facility] [employer] 250 DO Work Phone: [phone] Basic Metabolic Panelon 07- Anion gap [Moles/Vol] Not performed Normal 6.0-15.0 [facility] Comment on above: Performed By: #### B MP, MG, FE and TIBC, AFSANEH, CBC #### [facility] [address] Calcium [Mass/Vol] 9.4 mg/dL Normal 8.6-10.3 [facility] Comment on above: Performed By: #### B MP, MG, FE and TIBC, AFSANEH, CBC #### [facility] [address] Chloride [Moles/Vol] 92 mmol/L Low 98-107 [facility] Comment on above: Performed By: #### B MP, MG, FE and TIBC, AFSANEH, CBC #### [address] CO2 [Moles/Vol] mmol/L High 21.0-31.0 [facility] Comment on above: Performed By: #### B MP, MG, FE and TIBC, AFSANEH, CBC #### [address] Creatinine [Mass/Vol] 1.54 mg/dL High 0.60-1.[address] [facility] Comment on above: Performed By: #### B MP, MG, FE and TIBC, AFSANEH, CBC #### [place] [address] [place] Creatinine Clr Calc Pharmacy 29.80 [facility] Comment on above: Result Comment: PERF ORMED BY: [place] [address] PATHOLOGIST MAINTENANCE PAINTER KOBE VENCES M.D. Performed By: #### B MP, MG, FE and TIBC, AFSANEH, CBC #### [place] [address] [place] GFR/1.73 sq M.predicted MDRD (S/P/Bld) [Vol rate/Area] 35.431 mL/min/{1.73_m2} [facility] Comment on above: Performed By: #### B MP, MG, FE and TIBC, AFSANEH, CBC #### [address] Glucose [Mass/Vol] 95 mg/dL Normal 70-100 [facility] Comment on above: Result Comment: [place] Glucose Reference Range is dependent on time and content of last meal. Glucose of more than 200 mg/dL in a nonstressed, ambulatory subject supports the diagnosis of Diabetes Mellitus. ADA recommended reference range Performed By: #### B MP, MG, FE and TIBC, AFSANEH, CBC #### [facility] [address] Potassium [Moles/Vol] 4.6 mmol/L Normal 3.5-5.[address] [facility] Comment on above: Performed By: #### B MP, MG, FE and TIBC, AFSANEH, CBC #### [facility] [address] Sodium [Moles/Vol] 141 mmol/L Normal 136-145 [facility] Comment on above: Performed By: #### B MP, MG, FE and TIBC, AFSANEH, CBC #### [facility] [address] Urea nitrogen [Mass/Vol] 35 mg/dL High 7-25 [facility] Comment on above: Performed By: #### B MP, MG, FE and TIBC, ASFANEH, CBC #### [facility] [address] Basophils Auto (Bld) [#/Vol] Ordered By: Gina Poole on 11-21-2022 Basophils (Bld) [#/Vol] 0.0 10*3/uL 0.0-0.2 [facility] Basophils/100 WBC Auto (Bld) Ordered By: Gina Poole on 11-21-2022 Basophils/100 WBC (Bld) 0.3 % . [facility] Calcium [Mass/volume] in Ser um or PlasmaOrdered By: Gina Poole on 11-21-2022 Calcium [Mass/Vol] 9.4 mg/dL 8.6-10.3 [facility] Carbon dioxide, total [Moles /volume] in Serum or PlasmaOrdered By: Gina Poole on 11-21-2022 CO2 [Moles/Vol] mmol/L 21.0-31.0 [facility] Chloride [Moles/volume] in S arti or PlasmaOrdered By: Gina Poole on 11-21-2022 Chloride [Moles/Vol] 92 mmol/L 98-107 [facility] Complete Blood Count Auto Di ffon 11-21-2022 Basophils (Bld) [#/Vol] 0.0 10*3/uL Normal 0.0-0.2 [facility] Comment on above: Result Comment: PERF ORMED BY: [place] [address] PATHOLOGIST MAINTENANCE PAINTER KOBE VENCES M.D. Performed By: #### B MP, MG, FE and TIBC, AFSANEH, CBC #### [address] Basophils/100 WBC (Bld) 0.3 % Normal . [facility] Comment on above: Performed By: #### B MP, MG, FE and TIBC, AFSANEH, CBC #### [address] Eosinophils (Bld) [#/Vol] 0.2 10*3/uL Normal 0.0-0.45 [facility] Comment on above: Performed By: #### B MP, MG, FE and TIBC, AFSANEH, CBC #### [address] Eosinophils/100 WBC (Bld) 2.7 % Normal . [facility] Comment on above: Performed By: #### B MP, MG, FE and TIBC, AFSANEH, CBC #### [address] Erythrocyte distribution width (RBC) [Ratio] 15.2 % Normal 11.9-15.3 [facility] Comment on above: Performed By: #### B MP, MG, FE and TIBC, AFSANEH, CBC #### [address] Hematocrit (Bld) [Volume fraction] 24.7 % Low 34.0-46.4 [facility] Comment on above: Performed By: #### B MP, MG, FE and TIBC, AFSANEH, CBC #### [address] Hemoglobin (Bld) [Mass/Vol] 8.0 g/dL Low 11.8-15.4 [facility] Comment on above: Performed By: #### B MP, MG, FE and TIBC, AFSANEH, CBC #### [address] Lymphocytes (Bld) [#/Vol] 1.1 10*3/uL Normal 1.00-4.8 [facility] Comment on above: Performed By: #### B MP, MG, FE and TIBC, AFSANEH, CBC #### [address] Lymphocytes/100 WBC (Bld) 18.9 % Normal . [facility] Comment on above: Performed By: #### B MP, MG, FE and TIBC, AFSANEH, CBC #### [address] MCH (RBC) [Entitic mass] 29.0 pg Normal 24.7-34.3 [facility] Comment on above: Performed By: #### B MP, MG, FE and TIBC, AFSANEH, CBC #### [address] MCV (RBC) [Entitic vol] 89.8 fL Normal 80-100 [facility] Comment on above: Performed By: #### B MP, MG, FE and TIBC, AFSANEH, CBC #### [address] Mean Corpuscular HGB Conc 32.3 g/dL Normal 32.0-35.0 [facility] Comment on above: Performed By: #### B MP, MG, FE and TIBC, AFSANEH, CBC #### [address] Monocytes (Bld) [#/Vol] 0.4 10*3/uL Normal 0.0-0.8 [facility] Comment on above: Performed By: #### B MP, MG, FE and TIBC, AFSANEH, CBC #### [address] Monocytes/100 WBC (Bld) 7.3 % Normal . [facility] Comment on above: Performed By: #### B MP, MG, FE and TIBC, AFSANEH, CBC #### [address] Neutrophils (Bld) [#/Vol] 4.1 10*3/uL Normal 1.8-7.7 [facility] Comment on above: Performed By: #### B MP, MG, FE and TIBC, AFSANEH, CBC #### [address] Neutrophils/100 WBC (Bld) 70.8 % Normal . [facility] Comment on above: Performed By: #### B MP, MG, FE and TIBC, AFSANEH, CBC #### [address] NRBC% 0.1 /100{WBC} Normal 0-0.5 [facility] Comment on above: Performed By: #### B MP, MG, FE and TIBC, AFSANEH, CBC #### [address] Platelet mean volume (Bld) [Entitic vol] 7.8 fL Normal 6.3-10.7 [facility] Comment on above: Performed By: #### B MP, MG, FE and TIBC, AFSANEH, CBC #### [address] Platelets (Bld) [#/Vol] 132 10*3/uL Low 150-450 [facility] Comment on above: Performed By: #### B MP, MG, FE and TIBC, AFSANEH, CBC #### [address] RBC (Bld) [#/Vol] 2.75 10*6/uL Low 3.60-5.00 [facility] Comment on above: Performed By: #### B MP, MG, FE and TIBC, AFSANHE, CBC #### [facility] [address] [place] [id number] [place] WBC (Bld) [#/Vol] 5.7 10*3/uL Normal 3.8-11.6 [facility] Comment on above: Performed By: #### B MP, MG, FE and TIBC, AFSANEH, CBC #### [facility] [address] Creatinine [Mass/volume] in Serum or PlasmaOrdered By: Gina Poole on 11-21-2022 Creatinine [Mass/Vol] 1.54 mg/dL 0.60-1.[address] [facility] Eosinophils Auto (Bld) [#/Vo l]Ordered By: Gina Poole on 11-21-2022 Eosinophils (Bld) [#/Vol] 0.2 10*3/uL 0.0-0.45 [facility] Eosinophils/100 WBC Auto (Bl d)Ordered By: Gina Poole on 11-21-2022 Eosinophils/100 WBC (Bld) 2.7 % . [facility] Erythrocyte distribution wid th Auto (RBC) [Ratio]Ordered By: Gina Poole on 11-21-2022 Erythrocyte distribution width (RBC) [Ratio] 15.2 % 11.9-15.3 [facility] Glucose Glucometer (BldC) [M ass/Vol]Ordered By: Gina Poole on 11-21-2022 Glucose [Mass/Vol] 149 mg/dL [facility] Comment on above: Random Glucose Refer ence Range is dependent on time and content of last meal. Glucose of more than 200 mg/dL in a nonstressed, ambulatory subject supports the diagnosis of Diabetes Mellitus. Glucose Poct Glucometerson 0 11-21-2022 Glucose [Mass/Vol] 149 mg/dL Normal [facility] Comment on above: Result Comment: [place] Glucose Reference Range is dependent on time and content of last meal. Glucose of more than 200 mg/dL in a nonstressed, ambulatory subject supports the diagnosis of Diabetes Mellitus. PERFORMED BY: [facility] [address] [facility] [place] [address] PATHOLOGIST MAINTENANCE PAINTER KOBE [employer]ENCES M.D. Performed By: #### B MP, MG, FE and TIBC, AFSANEH, CBC #### [facility] [address] [place] [address] [place] Glucose [Mass/Vol] 118 mg/dL Normal [facility] Comment on above: Result Comment: [place] om Glucose Reference Range is dependent on time and content of last meal. Glucose of more than 200 mg/dL in a nonstressed, ambulatory subject supports the diagnosis of Diabetes Mellitus. PERFORMED BY: [facility] [address] [facility] [place] [address] PATHOLOGIST MAINTENANCE PAINTER KO[employer]ENCES M.D. Performed By: #### B MP, MG, FE and TIBC, AFSANEH, CBC #### [facility] [address] Glucose [Mass/volume] in Ser um or PlasmaOrdered By: Gina Poole on 11-21-2022 Glucose [Mass/Vol] 95 mg/dL 70-100 [facility] Comment on above: ADA recommended refe rence rangeRandom Glucose Reference Range is dependent on time and content of last meal. Glucose of more than 200 mg/dL in a nonstressed, ambulatory subject supports the diagnosis of Diabetes Mellitus. Hematocrit Auto (Bld) [Volum e fraction]Ordered By: Gina Poole on 11-21-2022 Hematocrit (Bld) [Volume fraction] 24.7 % 34.0-46.4 [facility] Hemoglobin [Mass/volume] in BloodOrdered By: Gina Poole on 11-21-2022 Hemoglobin (Bld) [Mass/Vol] 8.0 g/dL 11.8-15.4 [facility] Leukocytes [#/volume] correc loan for nucleated erythrocytes in Blood by Automated counOrdered By: Gina Poole on 11-21-2022 WBC corrected for nucl RBC Auto (Bld) [#/Vol] 5.7 10*3/uL 3.8-11.6 [facility] Lymphocytes Auto (Bld) [#/Vo l]Ordered By: Gina Poole on 11-21-2022 Lymphocytes (Bld) [#/Vol] 1.1 10*3/uL 1.00-4.8 [facility] Lymphocytes/100 WBC Auto (Bl d)Ordered By: Gina Poole on 11-21-2022 Lymphocytes/100 WBC (Bld) 18.9 % . [facility] MCH Auto (RBC) [Entitic mass ]Ordered By: Gina Poole on 11-21-2022 MCH (RBC) [Entitic mass] 29.0 pg 24.7-34.3 [facility] MCHC Auto (RBC) [Mass/Vol]Or dered By: Gina Poole on 11-21-2022 MCHC (RBC) [Mass/Vol] 32.3 g/dL 32.0-35.[address] [facility] MCV Auto (RBC) [Entitic vol] Ordered By: Gina Poole on 11-21-2022 MCV (RBC) [Entitic vol] 89.8 fL 80-100 [facility] Monocytes Auto (Bld) [#/Vol] Ordered By: Gina Poole on 11-21-2022 Monocytes (Bld) [#/Vol] 0.4 10*3/uL 0.0-0.8 [facility] Monocytes/100 WBC Auto (Bld) Ordered By: Gina Poole on 11-21-2022 Monocytes/100 WBC (Bld) 7.3 % . [facility] Neutrophils Auto (Bld) [#/Vo l]Ordered By: Gina Poole on 11-21-2022 Neutrophils (Bld) [#/Vol] 4.1 10*3/uL 1.8-7.7 [facility] Neutrophils/100 WBC Auto (Bl d)Ordered By: Gina Poole on 11-21-2022 Neutrophils/100 WBC (Bld) 70.8 % . [facility] No Panel InformationOrdered By: Gina Poole on 11-21-2022 Estimated GFR (CKD-EPI) 35.431 mL/Min [facility] Creatinine Clearance (Chem 29.80 [facility] Nucleated erythrocytes [Pres ence] in Blood by Automated countOrdered By: Gina Poole on 11-21-2022 Nucleated RBC Auto Ql (Bld) 0.1 /100{WBC} 0-0.5 [facility] Platelet mean volume Auto (B ld) [Entitic vol]Ordered By: Gina Poole on 11-21-2022 Platelet mean volume (Bld) [Entitic vol] 7.8 fL 6.3-10.7 [facility] Platelets Auto (Bld) [#/Vol] Ordered By: Gina Poole on 11-21-2022 Platelets (Bld) [#/Vol] 132 10*3/uL 150-450 [facility] Potassium [Moles/volume] in Serum or PlasmaOrdered By: Gina Poole on 11-21-2022 Potassium [Moles/Vol] 4.6 mmol/L 3.5-5.[address] [facility] RBC Auto (Bld) [#/Vol]Ordere d By: Gnia Poole on 11-21-2022 RBC (Bld) [#/Vol] 2.75 10*6/uL 3.60-5.00 [facility] Serum or plasma anion gap de terminationOrdered By: Gina Poole on 11-21-2022 Anion gap [Moles/Vol] TNP [facility] Comment on above: Test not performed Sodium [Moles/volume] in Ser um or PlasmaOrdered By: Gina Poole on 11-21-2022 Sodium [Moles/Vol] 141 mmol/L 136-145 [facility] Urea nitrogen [Mass/volume] in Serum or PlasmaOrdered By: Gina Poole on 11-21-2022 Urea nitrogen [Mass/Vol] 35 mg/dL 7-25 [facility] WBC Auto (Bld) [#/Vol]Ordere d By: Gina Poole on 11-21-2022 WBC (Bld) [#/Vol] 5.7 10*3/uL 3.8-11.6 [facility] XR chest 2V*on 11-21-2022 XR chest 2V* [facility] Main [place] [id number] XRay Report Signed Patient: Martin Hagen MR#: [id number] 52 : 1950 Acct:[id number] Age/Sex: 71 / F ADM Date: 11/18/22 Loc: 4 Room: [id number] Type: ADM IN Attending Dr: Gina Poole [...] Candace Godfrey M.D.11/21/2022 9:26 AM Dictation Location: [place] [address] Transcribed By: [facility] 11/21/22925 Dictated By: Candace Godfrey II, MD 11/21/22923 Signed By: 11/21/22925 [facility] Basic Metabolic Panelon 11-01 Anion gap [Moles/Vol] 7.5 mmol/L Normal 6.0-15.[address] [facility] Comment on above: Performed By: #### C BC, BMP #### [facility] [address] [place] [address] [place] Calcium [Mass/Vol] 8.7 mg/dL Normal 8.6-10.3 [facility] Comment on above: Performed By: #### C BC, BMP #### [facility] [address] [place] [id number] [place] Chloride [Moles/Vol] 99 mmol/L Normal 98-107 [facility] Comment on above: Performed By: #### C BC, BMP #### [facility] [address] [place] [id number] [place] CO2 [Moles/Vol] 42.2 mmol/L High 21.0-31.0 [facility] Comment on above: Performed By: #### C BC, BMP #### [facility] [address] [place] [address] [place] Creatinine [Mass/Vol] 1.73 mg/dL High 0.60-1.[address] [facility] Comment on above: Performed By: #### C BC, BMP #### [facility] [address] [place] [address] [place] Creatinine Clr Calc Pharmacy 26.49 [facility] Comment on above: Result Comment: PERF ORMED BY: [facility] [address] [place] [address] PATHOLOGIST MAINTENANCE PAINTER [employer]ENCES M.D. Performed By: #### C BC, BMP #### [facility] [address] [place] [address] [place] GFR/1.73 sq M.predicted MDRD (S/P/Bld) [Vol rate/Area] 30.815 mL/min/{1.73_m2} [facility] Comment on above: Performed By: #### C BC, BMP #### [facility] [address] [place] [address] [place] Glucose [Mass/Vol] 104 mg/dL High 70-100 [facility] Comment on above: Result Comment: [place] Glucose Reference Range is dependent on time and content of last meal. Glucose of more than 200 mg/dL in a nonstressed, ambulatory subject supports the diagnosis of Diabetes Mellitus. ADA recommended reference range Performed By: #### C BC, BMP #### [facility] [address] [place] [address] [place] Potassium [Moles/Vol] 4.7 mmol/L Normal 3.5-5.[address] [facility] Comment on above: Performed By: #### C BC, BMP #### [facility] [address] [place] [address] [place] Sodium [Moles/Vol] 144 mmol/L Normal 136-145 [facility] Comment on above: Performed By: #### C BC, BMP #### [facility] [address] Urea nitrogen [Mass/Vol] 33 mg/dL High 7-25 [facility] Comment on above: Performed By: #### C BETTYE, BMP #### [address] Complete Blood Count Auto Di ffon 11-20-2022 Basophils (Bld) [#/Vol] 0.0 10*3/uL Normal 0.0-0.2 [facility] Comment on above: Result Comment: PERF ORMED BY: [place] [address] PATHOLOGIST MAINTENANCE PAINTER [employer]ES M.D. Performed By: #### C BETTYE, BMP #### [address] Basophils/100 WBC (Bld) 0.4 % Normal . [facility] Comment on above: Performed By: #### C BETTYE, BMP #### [address] Eosinophils (Bld) [#/Vol] 0.1 10*3/uL Normal 0.0-0.45 [facility] Comment on above: Performed By: #### C BETTYE, BMP #### [address] Eosinophils/100 WBC (Bld) 2.1 % Normal . [facility] Comment on above: Performed By: #### C BC, BMP #### [address] Erythrocyte distribution width (RBC) [Ratio] 15.6 % High 11.9-15.3 [facility] Comment on above: Performed By: #### C BC, BMP #### [address] Hematocrit (Bld) [Volume fraction] 24.9 % Low 34.0-46.4 [facility] Comment on above: Performed By: #### C BC, BMP #### [address] Hemoglobin (Bld) [Mass/Vol] 8.0 g/dL Low 11.8-15.4 [facility] Comment on above: Performed By: #### C BC, BMP #### [address] Lymphocytes (Bld) [#/Vol] 1.2 10*3/uL Normal 1.00-4.8 [facility] Comment on above: Performed By: #### C BC, BMP #### [address] Lymphocytes/100 WBC (Bld) 22.4 % Normal . [facility] Comment on above: Performed By: #### C BC, BMP #### [address] MCH (RBC) [Entitic mass] 28.9 pg Normal 24.7-34.3 [facility] Comment on above: Performed By: #### C BC, BMP #### [address] MCV (RBC) [Entitic vol] 90.0 fL Normal 80-100 [facility] Comment on above: Performed By: #### C BC, BMP #### [address] Mean Corpuscular HGB Conc 32.1 g/dL Normal 32.0-35.0 [facility] Comment on above: Performed By: #### C BC, BMP #### [place] [address] [place] Monocytes (Bld) [#/Vol] 0.4 10*3/uL Normal 0.0-0.8 [facility] Comment on above: Performed By: #### C BC, BMP #### [place] [address] [place] Monocytes/100 WBC (Bld) 6.7 % Normal . [facility] Comment on above: Performed By: #### C BC, BMP #### [address] Neutrophils (Bld) [#/Vol] 3.7 10*3/uL Normal 1.8-7.7 [facility] Comment on above: Performed By: #### C BC, BMP #### [facility] [address] Neutrophils/100 WBC (Bld) 68.4 % Normal . [facility] Comment on above: Performed By: #### C BC, BMP #### [facility] [address] NRBC% 0.1 /100{WBC} Normal 0-0.5 [facility] Comment on above: Performed By: #### C BC, BMP #### [facility] [address] Platelet mean volume (Bld) [Entitic vol] 7.9 fL Normal 6.3-10.7 [facility] Comment on above: Performed By: #### C BC, BMP #### [facility] [address] Platelets (Bld) [#/Vol] 133 10*3/uL Low 150-450 [facility] Comment on above: Performed By: #### C BC, BMP #### [facility] [address] RBC (Bld) [#/Vol] 2.77 10*6/uL Low 3.60-5.00 [facility] Comment on above: Performed By: #### C BC, BMP #### [facility] [address] [place] [id number] [facility] WBC (Bld) [#/Vol] 5.4 10*3/uL Normal 3.8-11.6 [facility] Comment on above: Performed By: #### C BC, BMP #### [facility] [address] Glucose Poct Glucometerson 0 11-20-2022 Glucose [Mass/Vol] 135 mg/dL Normal [facility] Comment on above: Result Comment: [place] Glucose Reference Range is dependent on time and content of last meal. Glucose of more than 200 mg/dL in a nonstressed, ambulatory subject supports the diagnosis of Diabetes Mellitus. PERFORMED BY: [place] [address] PATHOLOGIST MAINTENANCE PAINTER [employer]ES M.D. Performed By: #### G LULS #### Point of Care testing , Glucose [Mass/Vol] 123 mg/dL Normal [facility] Comment on above: Result Comment: [place] om Glucose Reference Range is dependent on time and content of last meal. Glucose of more than 200 mg/dL in a nonstressed, ambulatory subject supports the diagnosis of Diabetes Mellitus. PERFORMED BY: [place] [address] PATHOLOGIST MAINTENANCE PAINTER [employer] M.D. Performed By: #### B MP, MG, FE and TIBC, AFSANEH, CBC #### [address] Glucose [Mass/Vol] 116 mg/dL Normal [facility] Comment on above: Result Comment: [place] Glucose Reference Range is dependent on time and content of last meal. Glucose of more than 200 mg/dL in a nonstressed, ambulatory subject supports the diagnosis of Diabetes Mellitus. PERFORMED BY: [place] [address] PATHOLOGIST MAINTENANCE PAINTER [employer]ES M.D. Performed By: #### G LULS #### Point of Care testing , Glucose [Mass/Vol] 130 mg/dL Normal [facility] Comment on above: Result Comment: [place] Glucose Reference Range is dependent on time and content of last meal. Glucose of more than 200 mg/dL in a nonstressed, ambulatory subject supports the diagnosis of Diabetes Mellitus. PERFORMED BY: [place] [address] PATHOLOGIST MAINTENANCE PAINTER [employer]ES M.D. Performed By: #### B MP, MG, FE and TIBC, AFSANEH, CBC #### [address] Basic Metabolic Panelon 07-2 0-2022 Anion gap [Moles/Vol] 9.8 mmol/L Normal 6.0-15.[address] [facility] Comment on above: Performed By: #### B MP, MG, FE and TIBC, AFSANEH, CBC #### [address] Calcium [Mass/Vol] 8.1 mg/dL Low 8.6-10.3 [facility] Comment on above: Performed By: #### B MP, MG, FE and TIBC, AFSANEH, CBC #### [address] Chloride [Moles/Vol] 101 mmol/L Normal 98-107 [facility] Comment on above: Performed By: #### B MP, MG, FE and TIBC, AFSANEH, CBC #### [address] CO2 [Moles/Vol] 38.1 mmol/L High 21.0-31.0 [facility] Comment on above: Performed By: #### B MP, MG, FE and TIBC, AFSANEH, CBC #### [address] Creatinine [Mass/Vol] 1.76 mg/dL High 0.60-1.[address] [facility] Comment on above: Performed By: #### B MP, MG, FE and TIBC, AFSANEH, CBC #### [address] Creatinine Clr Calc Pharmacy 25.90 [facility] Comment on above: Performed By: #### B MP, MG, FE and TIBC, AFSANEH, CBC #### [place] [address] [place] GFR/1.73 sq M.predicted MDRD (S/P/Bld) [Vol rate/Area] 30.185 mL/min/{1.73_m2} [facility] Comment on above: Performed By: #### B MP, MG, FE and TIBC, AFSANEH, CBC #### [address] Glucose [Mass/Vol] 100 mg/dL Normal 70-100 [facility] Comment on above: Result Comment: [place] Glucose Reference Range is dependent on time and content of last meal. Glucose of more than 200 mg/dL in a nonstressed, ambulatory subject supports the diagnosis of Diabetes Mellitus. ADA recommended reference range Performed By: #### B MP, MG, FE and TIBC, AFSANEH, CBC #### [address] Potassium [Moles/Vol] 4.9 mmol/L Normal 3.5-5.[address] [facility] Comment on above: Performed By: #### B MP, MG, FE and TIBC, AFSANEH, CBC #### [address] Sodium [Moles/Vol] 144 mmol/L Normal 136-145 [facility] Comment on above: Performed By: #### B MP, MG, FE and TIBC, AFSANEH, CBC #### [address] Urea nitrogen [Mass/Vol] 28 mg/dL High 7-25 [facility] Comment on above: Performed By: #### B MP, MG, FE and TIBC, AFSANEH, CBC #### [address] Complete Blood Count Auto Di ffon 11-19-2022 Basophils (Bld) [#/Vol] 0.0 10*3/uL Normal 0.0-0.2 [facility] Comment on above: Result Comment: PERF ORMED BY: [place] [address] PATHOLOGIST MAINTENANCE PAINTER [employer]ES M.D. Performed By: #### B MP, MG, FE and TIBC, AFSANEH, CBC #### [address] Basophils/100 WBC (Bld) 0.7 % Normal . [facility] Comment on above: Performed By: #### B MP, MG, FE and TIBC, AFSANEH, CBC #### [place] [address] [place] Eosinophils (Bld) [#/Vol] 0.1 10*3/uL Normal 0.0-0.45 [facility] Comment on above: Performed By: #### B MP, MG, FE and TIBC, AFSANEH, CBC #### [address] Eosinophils/100 WBC (Bld) 2.0 % Normal . [facility] Comment on above: Performed By: #### B MP, MG, FE and TIBC, AFSANEH, CBC #### [address] Erythrocyte distribution width (RBC) [Ratio] 15.5 % High 11.9-15.3 [facility] Comment on above: Performed By: #### B MP, MG, FE and TIBC, AFSANEH, CBC #### [address] Hematocrit (Bld) [Volume fraction] 26.7 % Low 34.0-46.4 [facility] Comment on above: Performed By: #### B MP, MG, FE and TIBC, AFSANEH, CBC #### [address] Hemoglobin (Bld) [Mass/Vol] 8.5 g/dL Low 11.8-15.4 [facility] Comment on above: Performed By: #### B MP, MG, FE and TIBC, AFSANEH, CBC #### [address] Lymphocytes (Bld) [#/Vol] 1.6 10*3/uL Normal 1.00-4.8 [facility] Comment on above: Performed By: #### B MP, MG, FE and TIBC, AFSANEH, CBC #### [address] Lymphocytes/100 WBC (Bld) 25.1 % Normal . [facility] Comment on above: Performed By: #### B MP, MG, FE and TIBC, AFSANEH, CBC #### [address] MCH (RBC) [Entitic mass] 29.0 pg Normal 24.7-34.3 [facility] Comment on above: Performed By: #### B MP, MG, FE and TIBC, AFSANEH, CBC #### [address] MCV (RBC) [Entitic vol] 91.3 fL Normal 80-100 [facility] Comment on above: Performed By: #### B MP, MG, FE and TIBC, AFSANEH, CBC #### [address] Mean Corpuscular HGB Conc 31.8 g/dL Low 32.0-35.0 [facility] Comment on above: Performed By: #### B MP, MG, FE and TIBC, AFSANEH, CBC #### [address] Monocytes (Bld) [#/Vol] 0.4 10*3/uL Normal 0.0-0.8 [facility] Comment on above: Performed By: #### B MP, MG, FE and TIBC, AFSANEH, CBC #### [address] Monocytes/100 WBC (Bld) 6.6 % Normal . [facility] Comment on above: Performed By: #### B MP, MG, FE and TIBC, AFSANEH, CBC #### [address] Neutrophils (Bld) [#/Vol] 4.1 10*3/uL Normal 1.8-7.7 [facility] Comment on above: Performed By: #### B MP, MG, FE and TIBC, AFSANEH, CBC #### [address] Neutrophils/100 WBC (Bld) 65.6 % Normal . [facility] Comment on above: Performed By: #### B MP, MG, FE and TIBC, AFSANEH, CBC #### [address] NRBC% 0.1 /100{WBC} Normal 0-0.5 [facility] Comment on above: Performed By: #### B MP, MG, FE and TIBC, AFSANEH, CBC #### [address] Platelet mean volume (Bld) [Entitic vol] 7.6 fL Normal 6.3-10.7 [facility] Comment on above: Performed By: #### B MP, MG, FE and TIBC, AFSANEH, CBC #### [address] Platelets (Bld) [#/Vol] 140 10*3/uL Low 150-450 [facility] Comment on above: Performed By: #### B MP, MG, FE and TIBC, AFSANEH, CBC #### [address] RBC (Bld) [#/Vol] 2.93 10*6/uL Low 3.60-5.00 [facility] Comment on above: Performed By: #### B MP, MG, FE and TIBC, AFSANEH, CBC #### [address] WBC (Bld) [#/Vol] 6.2 10*3/uL Normal 3.8-11.6 [facility] Comment on above: Performed By: #### B MP, MG, FE and TIBC, AFSANEH, CBC #### [address] Creatine Kinaseon 11-19-2022 CK [Catalytic activity/Vol] 31 U/L Normal 30-223 [facility] Comment on above: Order Comment: ultra sound come back in 10 mins Performed By: #### B MP, MG, FE and TIBC, AFSANEH, CBC #### [address] CK [Catalytic activity/Vol] 35 U/L Normal 30-223 [facility] Comment on above: Performed By: #### B MP, MG, FE and TIBC, AFSANEH, CBC #### [address] Creatine kinase [Enzymatic a ctivity/volume] in Serum or PlasmaOrdered By: Gina Poole on 11-19-2022 CK [Catalytic activity/Vol] 31 U/L 30-223 [facility] echo transthoracicon [facility] echo transthoracic [facility] Main [place] [address] [place] [id number] Echocardiogram Signed Patient: Martin Hagen MR#: [id number] 52 : 1950 Acct:[id number] Age/Sex: 71 / F ADM Date: 11/18/22 Loc: Room: [address] [place] [address] Type: ADM IN Attending Dr: Gina Poole DO Ordering Provider: Gina Poole DO Date of Service: 11/18/22 [facility] echo transthoracic: Shortness of Breath/Dyspnea Copies to: Colin Carrillo MD, FAC Gina Poole DO Height: 60 in Weight: 169 lb Performed By: Adrianna Díaz RDCS BSA: 1.7 m2 BP: 150/74 mmHg [...] JUDITH(V,D): 1.5 cm2 (more content not included)... [facility] Ferritinon 11-19-2022 Ferritin [Mass/Vol] 388.8 ng/mL High 11.0-306.8 [facility] Comment on above: Result Comment: PERF ORMED BY: [place] [address] PATHOLOGIST MAINTENANCE PAINTER [employer]ES M.D. Performed By: #### B MP, MG, FE and TIBC, AFSANEH, CBC #### [facility] [address] [place] [address] [place] Ferritin [Mass/volume] in Se rum or PlasmaOrdered By: Gina Poole on 11-19-2022 Ferritin [Mass/Vol] 388.8 ng/mL 11.0-306.8 [facility] Glucose Poct Glucometerson 0 11-19-2022 Glucose [Mass/Vol] 140 mg/dL Normal [facility] Comment on above: Result Comment: [place] om Glucose Reference Range is dependent on time and content of last meal. Glucose of more than 200 mg/dL in a nonstressed, ambulatory subject supports the diagnosis of Diabetes Mellitus. PERFORMED BY: [place] [address] PATHOLOGIST MAINTENANCE PAINTER [employer]ES M.D. Performed By: #### B MP, MG, FE and TIBC, AFSANEH, CBC #### [address] Commemt1 Glu2: Cleaned Meter Normal [facility] Comment on above: Result Comment: PERF ORMED BY: [place] [address] PATHOLOGIST MAINTENANCE PAINTER KOBE VENCES M.D. Performed By: #### B MP, MG, FE and TIBC, AFSANEH, CBC #### [facility] [address] [place] [address] Glucose [Mass/Vol] 168 mg/dL Normal [facility] Comment on above: Result Comment: [place] om Glucose Reference Range is dependent on time and content of last meal. Glucose of more than 200 mg/dL in a nonstressed, ambulatory subject supports the diagnosis of Diabetes Mellitus. Performed By: #### B MP, MG, FE and TIBC, AFSANEH, CBC #### [facility] [address] [place] [id number] [place] Iron [Mass/volume] in Serum or PlasmaOrdered By: Gina Poole on 11-19-2022 Iron [Mass/Vol] 28 ug/dL 50-212 [facility] Iron and TIBC Profileon 11-01 0-202 % Iron Saturation 11.8 % Low 20-50 [facility] Comment on above: Performed By: #### B MP, MG, FE and TIBC, AFSANEH, CBC #### [facility] [address] [place] [address] [facility] Iron [Mass/Vol] 28 ug/dL Low 50-212 [facility] Comment on above: Performed By: #### B MP, MG, FE and TIBC, AFSANEH, CBC #### [facility] [address] [place] [id number] [facility] Total Iron Binding Capacity 238 ug/dL Low 255-450 [facility] Comment on above: Performed By: #### B MP, MG, FE and TIBC, AFSANEH, CBC #### [facility] [address] [place] [id number] [place] Transferrin [Mass/Vol] 170 mg/dL Low 203-362 [facility] Comment on above: Performed By: #### B MP, MG, FE and TIBC, AFSANEH, CBC #### [facility] [address] [place] [id number] [place] Iron binding capacity [Mass/ volume] in Serum or PlasmaOrdered By: Gina Poole on 11-19-2022 Iron binding capacity [Mass/Vol] 238 ug/dL 255-450 [facility] Iron saturation [Mass Fracti on] in Serum or PlasmaOrdered By: Gina Poole on 11-19-2022 Iron saturation [Mass fraction] 11.8 % 20-50 [facility] Magnesiumon 11-19-2022 Magnesium [Mass/Vol] 1.5 mg/dL Low 1.9-2.7 [facility] Comment on above: Performed By: #### B MP, MG, FE and TIBC, AFSANEH, CBC #### [facility] [address] [place] [address] Magnesium [Mass/volume] in S arti or PlasmaOrdered By: Gina Poole on 11-19-2022 Magnesium [Mass/Vol] 1.5 mg/dL 1.9-2.7 [facility] No Panel InformationOrdered By: Gina Poole on 11-19-2022 Bedside Glucose Comment Glu2: cleaned meter [facility] Transferrin [Mass/volume] in Serum or PlasmaOrdered By: Gina Poole on 11-19-2022 Transferrin [Mass/Vol] 170 mg/dL 203-362 [facility] Troponin I High Sensitivityo n 11-19-2022 Troponin I High Sensitivity 19.6 pg/mL High 0.0-15.0 [facility] Comment on above: Order Comment: ultra sound come back in 10 mins Result Comment: PERF ORMED BY: [place] [address] PATHOLOGIST MAINTENANCE PAINTER KOBE VENCES M.D. Performed By: #### B MP, MG, FE and TIBC, AFSANEH, CBC #### [facility] [address] [place] [address] Troponin I High Sensitivity 17.3 pg/mL High 0.0-15.0 [facility] Comment on above: Result Comment: PERF ORMED BY: [place] [address] PATHOLOGIST MAINTENANCE PAINTER KOBE VENCES M.D. Performed By: #### B MP, MG, FE and TIBC, AFSANEH, CBC #### [facility] [address] [place] [address] Troponin I.cardiac [Mass/vol ume] in Serum or Plasma by Detection limit <= 0.01 ng/Ordered By: Gina Poole on 11-19-2022 Troponin I.cardiac DL <= 0.01 ng/mL [Mass/Vol] 19.6 pg/mL 0.0-15.0 [facility] Activated partial thrombopla stin time (aPTT) in platelet poor plasma by coagulation aOrdered By: Venkatesh Trammell on 11-18-2022 aPTT Coag (PPP) [Time] 35.1 s 25.1-36.5 [facility] Alanine aminotransferase [En zymatic activity/volume] in Serum or PlasmaOrdered By: Venkatesh Trammell on 11-18-2022 ALT [Catalytic activity/Vol] 10 U/L 7-52 [facility] Albumin [Mass/volume] in Ser um or Plasma by Bromocresol green (BCG) dye binding methoOrdered By: Venkatesh Trammell on 11-18-2022 Albumin BCG dye [Mass/Vol] 3.4 g/dL 3.5-5.7 [facility] Alkaline phosphatase [Enzyma tic activity/volume] in Serum or PlasmaOrdered By: Venkatesh Trammell on 11-18-2022 ALP [Catalytic activity/Vol] 54 U/L 34-104 [facility] Aspartate aminotransferase [ Enzymatic activity/volume] in Serum or PlasmaOrdered By: Venkatesh Trammell on 11-18-2022 AST [Catalytic activity/Vol] 15 U/L 13-39 [facility] B-Type Natriuretic Peptideon 11-18-2022 Natriuretic peptide B (Bld) [Mass/Vol] 2080.0 pg/mL High 5-100 [facility] Comment on above: Result Comment: PERF ORMED BY: [place] [address] PATHOLOGIST MAINTENANCE PAINTER KOBE VENCES M.D. Performed By: #### B MP, MG, FE and TIBC, AFSANEH, CBC #### [address] Basic Metabolic Panelon 10-31 Anion gap [Moles/Vol] 10.0 mmol/L Normal 6.0-15.0 [facility] Comment on above: Performed By: #### B MP, MG, FE and TIBC, AFSANEH, CBC #### [address] Calcium [Mass/Vol] 8.1 mg/dL Low 8.6-10.3 [facility] Comment on above: Performed By: #### B MP, MG, FE and TIBC, AFSANEH, CBC #### [place] [id number] [place] Chloride [Moles/Vol] 101 mmol/L Normal 98-107 [facility] Comment on above: Performed By: #### B MP, MG, FE and TIBC, AFSANEH, CBC #### [address] CO2 [Moles/Vol] 36.2 mmol/L High 21.0-31.0 [facility] Comment on above: Performed By: #### B MP, MG, FE and TIBC, AFSANEH, CBC #### [facility] [address] Creatinine [Mass/Vol] 1.78 mg/dL High 0.60-1.[address] [facility] Comment on above: Performed By: #### B MP, MG, FE and TIBC, AFSANEH, CBC #### [address] Creatinine Clr Calc Pharmacy 25.51 [facility] Comment on above: Result Comment: PERF ORMED BY: [place] [address] PATHOLOGIST MAINTENANCE PAINTER KOBE VENCES M.D. Performed By: #### B MP, MG, FE and TIBC, AFSANEH, CBC #### [address] GFR/1.73 sq M.predicted MDRD (S/P/Bld) [Vol rate/Area] 29.779 mL/min/{1.73_m2} [facility] Comment on above: Performed By: #### B MP, MG, FE and TIBC, AFSANEH, CBC #### [address] Glucose [Mass/Vol] 101 mg/dL High 70-100 [facility] Comment on above: Result Comment: [place] om Glucose Reference Range is dependent on time and content of last meal. Glucose of more than 200 mg/dL in a nonstressed, ambulatory subject supports the diagnosis of Diabetes Mellitus. ADA recommended reference range Performed By: #### B MP, MG, FE and TIBC, AFSANEH, CBC #### [facility] [address] Potassium [Moles/Vol] 5.2 mmol/L High 3.5-5.[address] [facility] Comment on above: Performed By: #### B MP, MG, FE and TIBC, AFSANEH, CBC #### [facility] [address] Sodium [Moles/Vol] 142 mmol/L Normal 136-145 [facility] Comment on above: Performed By: #### B MP, MG, FE and TIBC, AFSANEH, CBC #### [facility] [address] Urea nitrogen [Mass/Vol] 29 mg/dL High 7-25 [facility] Comment on above: Performed By: #### B MP, MG, FE and TIBC, AFSANEH, CBC #### [facility] [address] Basophils Auto (Bld) [#/Vol] Ordered By: Venkatesh Trammell on 11-18-2022 Basophils (Bld) [#/Vol] 0.0 10*3/uL 0.0-0.2 [facility] Basophils/100 WBC Auto (Bld) Ordered By: Venkatesh Trammell on 11-18-2022 Basophils/100 WBC (Bld) 0.7 % . [facility] Bilirubin.direct [Mass/volum e] in Serum or PlasmaOrdered By: Venkatesh Trammell on 11-18-2022 Bilirubin.direct [Mass/Vol] 0.10 mg/dL 0.03-0.18 [facility] Bilirubin.total [Mass/volume ] in Serum or PlasmaOrdered By: Venkatesh Trammell on 11-18-2022 Bilirubin [Mass/Vol] 0.4 mg/dL 0.3-1.0 [facility] Calcium [Mass/volume] in Ser um or PlasmaOrdered By: Venkatesh Trammell on 11-18-2022 Calcium [Mass/Vol] 8.1 mg/dL 8.6-10.3 [facility] Carbon dioxide, total [Moles /volume] in Serum or PlasmaOrdered By: Venkatesh Trammell on 11-18-2022 CO2 [Moles/Vol] 36.2 mmol/L 21.0-31.0 [facility] Chloride [Moles/volume] in S arti or PlasmaOrdered By: Venkatesh Davisonzi on 11-18-2022 Chloride [Moles/Vol] 101 mmol/L 98-107 [facility] Complete Blood Count Auto Di ffon 11-18-2022 Basophils (Bld) [#/Vol] 0.0 10*3/uL Normal 0.0-0.2 [facility] Comment on above: Result Comment: PERF ORMED BY: [place] [address] PATHOLOGIST MAINTENANCE PAINTER KOBE VENCES M.D. Performed By: #### B MP, MG, FE and TIBC, AFSANEH, CBC #### [address] Basophils/100 WBC (Bld) 0.7 % Normal . [facility] Comment on above: Performed By: #### B MP, MG, FE and TIBC, AFSANEH, CBC #### [facility] [address] [place] [address] Eosinophils (Bld) [#/Vol] 0.1 10*3/uL Normal 0.0-0.45 [facility] Comment on above: Performed By: #### B MP, MG, FE and TIBC, AFSANEH, CBC #### [address] Eosinophils/100 WBC (Bld) 1.7 % Normal . [facility] Comment on above: Performed By: #### B MP, MG, FE and TIBC, AFSANEH, CBC #### [address] Erythrocyte distribution width (RBC) [Ratio] 15.2 % Normal 11.9-15.3 [facility] Comment on above: Performed By: #### B MP, MG, FE and TIBC, AFSANEH, CBC #### [address] Hematocrit (Bld) [Volume fraction] 26.8 % Low 34.0-46.4 [facility] Comment on above: Performed By: #### B MP, MG, FE and TIBC, AFSANEH, CBC #### [address] Hemoglobin (Bld) [Mass/Vol] 8.7 g/dL Low 11.8-15.4 [facility] Comment on above: Performed By: #### B MP, MG, FE and TIBC, AFSANEH, CBC #### [address] Lymphocytes (Bld) [#/Vol] 1.5 10*3/uL Normal 1.00-4.8 [facility] Comment on above: Performed By: #### B MP, MG, FE and TIBC, AFSANEH, CBC #### [address] Lymphocytes/100 WBC (Bld) 22.5 % Normal . [facility] Comment on above: Performed By: #### B MP, MG, FE and TIBC, AFSANEH, CBC #### [address] MCH (RBC) [Entitic mass] 29.1 pg Normal 24.7-34.3 [facility] Comment on above: Performed By: #### B MP, MG, FE and TIBC, AFSANEH, CBC #### [address] MCV (RBC) [Entitic vol] 89.8 fL Normal 80-100 [facility] Comment on above: Performed By: #### B MP, MG, FE and TIBC, AFSANEH, CBC #### [address] Mean Corpuscular HGB Conc 32.4 g/dL Normal 32.0-35.0 [facility] Comment on above: Performed By: #### B MP, MG, FE and TIBC, AFSANEH, CBC #### [address] Monocytes (Bld) [#/Vol] 0.4 10*3/uL Normal 0.0-0.8 [facility] Comment on above: Performed By: #### B MP, MG, FE and TIBC, AFSANEH, CBC #### [address] Monocytes/100 WBC (Bld) 16.05 % Normal 0.00-20.00 [facility] Comment on above: Performed By: #### B MP, MG, FE and TIBC, AFSANEH, CBC #### [address] Monocytes/100 WBC (Bld) 5.7 % Normal . [facility] Comment on above: Performed By: #### B MP, MG, FE and TIBC, AFSANEH, CBC #### [address] Neutrophils (Bld) [#/Vol] 4.7 10*3/uL Normal 1.8-7.7 [facility] Comment on above: Performed By: #### B MP, MG, FE and TIBC, AFSANEH, CBC #### [address] Neutrophils/100 WBC (Bld) 69.4 % Normal . [facility] Comment on above: Performed By: #### B MP, MG, FE and TIBC, AFSANEH, CBC #### [address] NRBC% 0.0 /100{WBC} Normal 0-0.5 [facility] Comment on above: Performed By: #### B MP, MG, FE and TIBC, AFSANEH, CBC #### [address] Platelet mean volume (Bld) [Entitic vol] 8.2 fL Normal 6.3-10.7 [facility] Comment on above: Performed By: #### B MP, MG, FE and TIBC, AFSANEH, CBC #### [place] [address] [place] Platelets (Bld) [#/Vol] 169 10*3/uL Normal 150-450 [facility] Comment on above: Performed By: #### B MP, MG, FE and TIBC, AFSANEH, CBC #### [address] RBC (Bld) [#/Vol] 2.98 10*6/uL Low 3.60-5.00 [facility] Comment on above: Performed By: #### B MP, MG, FE and TIBC, AFSANEH, CBC #### [address] WBC (Bld) [#/Vol] 6.8 10*3/uL Normal 3.8-11.6 [facility] Comment on above: Performed By: #### B MP, MG, FE and TIBC, AFSANEH, CBC #### [address] Creatine Kinaseon 11-18-2022 CK [Catalytic activity/Vol] 44 U/L Normal [facility] Comment on above: Performed By: #### B MP, MG, FE and TIBC, AFSANEH, CBC #### [address] CK [Catalytic activity/Vol] 46 U/L Normal [facility] Comment on above: Performed By: #### B MP, MG, FE and TIBC, AFSANEH, CBC #### [address] Creatine kinase [Enzymatic a ctivity/volume] in Serum or PlasmaOrdered By: Gina Poole on 11-18-2022 CK [Catalytic activity/Vol] 44 U/L [facility] Creatinine [Mass/volume] in Serum or PlasmaOrdered By: Venkatesh Trammell on 11-18-2022 Creatinine [Mass/Vol] 1.78 mg/dL 0.60-1.[address] [facility] ECG 12 lead ECGon 11-18-2022 ECG 12 lead ECG [facility] Main [place] [address] [place] [address] Electrocardiograph Report Signed Patient: Martin Hagen MR#: [id number] 52 : 1950 Acct:[id number] Age/Sex: 71 / F ADM Date: 11/18/22 Loc: 4 Room: [address] [place] [address] Type: ADM IN Attending Dr: Gina Poole [...] ECGs available Confirmed by Venkatesh Trammell DO ([id number]) on 11/19/2022 12:36:06 AM Referred By: Electronically Signed By:Venkatesh Trammell DO Transcribed By: MUS Signed By Venkatesh Trammell DO [address] [facility] Eosinophils Auto (Bld) [#/Vo l]Ordered By: Venkatesh Trammell on 11-18-2022 Eosinophils (Bld) [#/Vol] 0.1 10*3/uL 0.0-0.45 [facility] Eosinophils/100 WBC Auto (Bl d)Ordered By: Venkatesh Trammell on 11-18-2022 Eosinophils/100 WBC (Bld) 1.7 % . [facility] Erythrocyte distribution wid th Auto (RBC) [Ratio]Ordered By: Venkatesh Trammell on 11-18-2022 Erythrocyte distribution width (RBC) [Ratio] 15.2 % 11.9-15.3 [facility] Globulin Calc (S) [Mass/Vol] Ordered By: Venkatesh Trammell on 11-18-2022 Globulin (S) [Mass/Vol] 3.2 g/dL [facility] Glucose [Mass/volume] in Ser um or PlasmaOrdered By: Venkatesh Trammell on 11-18-2022 Glucose [Mass/Vol] 101 mg/dL 70-100 [facility] Comment on above: ADA recommended refe rence rangeRandom Glucose Reference Range is dependent on time and content of last meal. Glucose of more than 200 mg/dL in a nonstressed, ambulatory subject supports the diagnosis of Diabetes Mellitus. Hematocrit Auto (Bld) [Volum e fraction]Ordered By: Venkatesh Trammell on 11-18-2022 Hematocrit (Bld) [Volume fraction] 26.8 % 34.0-46.4 [facility] Hemoglobin [Mass/volume] in BloodOrdered By: Venkatesh Trammell on 11-18-2022 Hemoglobin (Bld) [Mass/Vol] 8.7 g/dL 11.8-15.4 [facility] Hepatic Panelon 11-18-2022 Albumin [Mass/Vol] 3.4 g/dL Low 3.5-5.7 [facility] Comment on above: Performed By: #### H EPATIC #### [address] Albumin/Globulin [Mass ratio] 1.1 {ratio} Normal [facility] Comment on above: Performed By: #### H EPATIC #### [address] ALP [Catalytic activity/Vol] 54 U/L Normal 34-104 [facility] Comment on above: Result Comment: PERF ORMED BY: [place] [address] PATHOLOGIST MAINTENANCE PAINTER KOBE VENCES M.D. Performed By: #### H EPATIC #### [address] ALT [Catalytic activity/Vol] 10 U/L Normal 7-52 [facility] Comment on above: Performed By: #### H EPATIC #### [address] AST [Catalytic activity/Vol] 15 U/L Normal 13-39 [facility] Comment on above: Performed By: #### H EPATIC #### [address] Bilirubin [Mass/Vol] 0.4 mg/dL Normal 0.3-1.0 [facility] Comment on above: Performed By: #### H EPATIC #### [facility] [address] Bilirubin,Indirect 0.3 mg/dL Normal [facility] Comment on above: Performed By: #### H EPATIC #### [facility] [address] Bilirubin.indirect [Mass/Vol] 0.10 mg/dL Normal 0.03-0.18 [facility] Comment on above: Performed By: #### H EPATIC #### [facility] [address] Globulin (S) [Mass/Vol] 3.2 g/dL Normal [facility] Comment on above: Performed By: #### H EPATIC #### [facility] [address] [place] [address] Protein [Mass/Vol] 6.6 g/dL Normal 6.4-8.9 [facility] Comment on above: Performed By: #### H EPATIC #### [facility] [address] [place] [address] Laboratory - CoagulationOrde red By: Venkatesh Trammell on 11-18-2022 PT Coag (PPP) [Time] 17.6 s 9.0-12.9 [facility] Leukocytes [#/volume] correc loan for nucleated erythrocytes in Blood by Automated counOrdered By: Venkatesh Trammell on 11-18-2022 WBC corrected for nucl RBC Auto (Bld) [#/Vol] 6.8 10*3/uL 3.8-11.6 [facility] Lymphocytes Auto (Bld) [#/Vo l]Ordered By: Venkatesh Trammell on 11-18-2022 Lymphocytes (Bld) [#/Vol] 1.5 10*3/uL 1.00-4.8 [facility] Lymphocytes/100 WBC Auto (Bl d)Ordered By: Venkatesh Trammell on 11-18-2022 Lymphocytes/100 WBC (Bld) 22.5 % . [facility] MCH Auto (RBC) [Entitic mass ]Ordered By: Venkatesh Trammell on 11-18-2022 MCH (RBC) [Entitic mass] 29.1 pg 24.7-34.3 [facility] MCHC Auto (RBC) [Mass/Vol]Or dered By: Venkatesh Trammell on 11-18-2022 MCHC (RBC) [Mass/Vol] 32.4 g/dL 32.0-35.[address] [facility] MCV Auto (RBC) [Entitic vol] Ordered By: Venkatesh Trammell on 11-18-2022 MCV (RBC) [Entitic vol] 89.8 fL 80-100 [facility] Monocyte distribution width [Entitic volume] in Blood by AutomatedOrdered By: Venkatesh Trammell on 11-18-2022 Monocyte distribution width Auto (Bld) [Entitic vol] 16.05 % 0.00-20.00 [facility] Monocytes Auto (Bld) [#/Vol] Ordered By: Venkatesh Trammell on 11-18-2022 Monocytes (Bld) [#/Vol] 0.4 10*3/uL 0.0-0.8 [facility] Monocytes/100 WBC Auto (Bld) Ordered By: Venkatesh Trammell on 11-18-2022 Monocytes/100 WBC (Bld) 5.7 % . [facility] Natriuretic peptide B [Mass/ Vol]Ordered By: Venkatesh Trammell on 11-18-2022 Natriuretic peptide B (Bld) [Mass/Vol] 2080.0 pg/mL 5-100 [facility] Neutrophils Auto (Bld) [#/Vo l]Ordered By: Venkatesh Trammell on 11-18-2022 Neutrophils (Bld) [#/Vol] 4.7 10*3/uL 1.8-7.7 [facility] Neutrophils/100 WBC Auto (Bl d)Ordered By: Venkatesh Trammell on 11-18-2022 Neutrophils/100 WBC (Bld) 69.4 % . [facility] No Panel InformationOrdered By: Venkatesh Trammell on 11-18-2022 Estimated GFR (CKD-EPI) 29.779 mL/Min [facility] Creatinine Clearance (Chem 25.51 [facility] Nucleated erythrocytes [Pres ence] in Blood by Automated countOrdered By: Venkatesh Trammell on 11-18-2022 Nucleated RBC Auto Ql (Bld) 0.0 /100{WBC} 0-0.5 [facility] Partial Thromboplastin Timeo n 11-18-2022 aPTT Coag (Bld) [Time] 35.1 s Normal 25.1-36.5 [facility] Comment on above: Result Comment: PERF ORMED BY: [facility] [address] [place] [address] PATHOLOGIST MAINTENANCE PAINTER KOBE VENCES M.D. Performed By: #### B MP, MG, FE and TIBC, AFSANEH, CBC #### [facility] [address] Platelet mean volume Auto (B ld) [Entitic vol]Ordered By: Venkatesh Trammell on 11-18-2022 Platelet mean volume (Bld) [Entitic vol] 8.2 fL 6.3-10.7 [facility] Platelet poor plasma interna tional normalized ratio (INR) by coagulation assay (relatOrdered By: Venkatesh Trammell on 11-18-2022 INR Coag (PPP) [Relative time] 1.5 {INR} [facility] Comment on above: INR Therapeutic Rang e [...] 11-18-2022 Platelets (Bld) [#/Vol] 169 10*3/uL 150-450 [facility] Potassium [Moles/volume] in Serum or PlasmaOrdered By: Venkatesh Trammell on 11-18-2022 Potassium [Moles/Vol] 5.2 mmol/L 3.5-5.[address] [facility] Protein [Mass/volume] in Ser um or PlasmaOrdered By: Venkatesh Trammell on 11-18-2022 Protein [Mass/Vol] 6.6 g/dL 6.4-8.9 [facility] Prothrombin Time INRon 11-18 INR Coag (PPP) [Relative time] 1.5 {INR} Normal [facility] Comment on above: Result Comment: INR Therapeutic [...] MG, FE and TIBC, AFSANEH, CBC #### [facility] [address] PT Coag (PPP) [Time] 17.6 s High 9.0-12.9 [facility] Comment on above: Performed By: #### B MP, MG, FE and TIBC, AFSANEH, CBC #### [facility] [address] RBC Auto (Bld) [#/Vol]Ordere d By: Venkatesh Trammell on 11-18-2022 RBC (Bld) [#/Vol] 2.98 10*6/uL 3.60-5.00 [facility] Serum or plasma albumin/glob ulin mass ratioOrdered By: Venkatesh Trammell on 11-18-2022 Albumin/Globulin [Mass ratio] 1.1 {ratio} [facility] Serum or plasma anion gap de terminationOrdered By: Venkatesh Trammell on 11-18-2022 Anion gap [Moles/Vol] 10.0 mmol/L 6.0-15.0 [facility] Serum or plasma non-glucuron idated bilirubin measurement (mass/volume)Ordered By: Venkatesh Trammell on 11-18-2022 Bilirubin.indirect [Mass/Vol] 0.3 mg/dL [facility] Sodium [Moles/volume] in Ser um or PlasmaOrdered By: Venkatesh Trammell on 11-18-2022 Sodium [Moles/Vol] 142 mmol/L 136-145 [facility] Troponin I High Sensitivityo n 11-18-2022 Troponin I High Sensitivity 18.4 pg/mL High 0.0-15.0 [facility] Comment on above: Result Comment: PERF ORMED BY: [place] [address] PATHOLOGIST MAINTENANCE PAINTER KOBE [employer]ENCES M.D. Performed By: #### B MP, MG, FE and TIBC, AFSANEH, CBC #### [facility] [address] [place] [address] [place] Troponin I High Sensitivity 18.0 pg/mL High 0.0-15.0 [facility] Comment on above: Result Comment: PERF ORMED BY: [place] [address] PATHOLOGIST MAINTENANCE PAINTER KOBE VENCES M.D. Performed By: #### B MP, MG, FE and TIBC, AFSANEH, CBC #### [address] [address] [place] Troponin I.cardiac [Mass/vol ume] in Serum or Plasma by Detection limit <= 0.01 ng/Ordered By: Gina Poole on 11-18-2022 Troponin I.cardiac DL <= 0.01 ng/mL [Mass/Vol] 18.4 pg/mL 0.0-15.0 [facility] Urea nitrogen [Mass/volume] in Serum or PlasmaOrdered By: Venkatesh Trammell on 11-18-2022 Urea nitrogen [Mass/Vol] 29 mg/dL 7-25 [facility] WBC Auto (Bld) [#/Vol]Ordere d By: Venkatesh Trammell on 11-18-2022 WBC (Bld) [#/Vol] 6.8 10*3/uL 3.8-11.6 [facility] XR chest 1V portableon 11-18 XR chest 1V portable [facility] Main [place] [id number] XRay Report Signed Patient: Martin Hagen MR#: [id number] 52 : 1950 Acct:[id number] Age/Sex: 71 / F ADM Date: 11/18/22 [...] Ferreira Jr., D.OJesse11/18/2022 5:40 PM Dictation Location: [id number] Transcribed By: [facility] 11/18/221739 Dictated By: Perez Ferreira Jr, DO 11/18/221738 Signed By: 11/18/221739 [facility] 36on 10-30-2022 36 Milena from [facility] [place] called to make you aware that patient has gained 5lbs since the [employer] increase on 10/27. She said her lungs are clear and diminished. She is not coughing and she is not edematous. Did you want to make any other changes? Please advise. Thanks. [facility] Telephoneon 10-30-2022 Telephone [id number] Maria G Hagen 1950 F Date Provider Department Center 10/30/2022 [facility] Family History Problem Relation Age of Onset Stroke Mother Hypertension Mother Heart attack Father Hypertension Sister Heart attack Sister Heart attack Brother Family Status - Relation Status Age at Mother Father Sister Brother [facility] Office Visiton 10-27-2022 Follow-up visit [id number] Maria G Hagne 1950 F Date Provider Department Center 10/27/2022 [facility] Family History Problem Relation Age of Onset Stroke Mother Hypertension Mother Heart attack Father Hypertension Sister Heart attack Sister Heart attack Brother Family Status - Relation Status Age at Mother Father Sister Brother Level of Service:07155 [place] OFFICE/OUTPATIENT ESTABLISHED MOD MDM 30-39 MIN [facility] Office Visiton 09-22-2022 Follow-up visit [id number] Maria G Hagen 1950 F Date Provider Department Center 09/22/2022 [address] CARD Juan Hos Family History Problem Relation Age of Onset Stroke Mother Hypertension Mother Heart attack Father Hypertension Sister Heart attack Sister Heart attack Brother Family Status - Relation Status Age at Mother Father Sister Brother Level of Service:38161 [place] OFFICE/OUTPATIENT ESTABLISHED LOW MDM 20-29 MIN Reason for Visit and Comments: Follow-up [474930] - Event monitor follow up Normal [facility] BNPon 09-08-2022 Natriuretic peptide B (Bld) [Mass/Vol] 67417.0 pg/mL Critically high <=900.[address] [facility] Comment on above: Performed By: #### C MP, BNP ####[facility] Sykdltzdtv[address] [place], [place] [address]Dr. Ivette Hernandez CBC AUTO DIFFon 09-08-2022 BASO # 0.0 103/ul Normal 0.0-0.1 [facility] Comment on above: Performed By: #### C BC ####[facility] Bxlaturruk[address] [place], [place] [address]Dr. Ivette Hernandez Basophils/100 WBC (Bld) 0.0 % Critically low 0.2-2.[address] [facility] Comment on above: Performed By: #### C BC ####[facility] Nesgcddeij26[address] [place], [place] [address]Dr. Ivette Hernandez EO # 0.0 103/ul Normal 0.0-0.[address] [facility] Comment on above: Performed By: #### C BC ####[facility] Zoyqznlntr6596[address] [place], [place] [address]Dr. Ivette Hernandez Eosinophils/100 WBC (Bld) 0.0 % Critically low 0.9-7.[address] [facility] Comment on above: Performed By: #### C BC ####[facility] Qrnpwpboya369[address] [place], [place] [address]Dr. Ivette Hernandez Erythrocyte distribution width (RBC) [Ratio] 14.0 % Normal 11.0-15.[address] [facility] Comment on above: Performed By: #### C BC ####[facility] [address]xcl[address] [place] [address]Dr. Ivette Hernandez Hematocrit (Bld) [Volume fraction] 26.0 % Critically low 36.0-48.0 [facility] Comment on above: Performed By: #### C BC ####[facility] Ovmdgdcggb7[address] [place] [address]Dr. Ivette David Hemoglobin (Bld) [Mass/Vol] 8.2 g/dL Critically low 12.0-16.[address] [facility] Comment on above: Performed By: #### C BC ####[facility] Ftsovbvzbi33[address] [place], [place] [address]Dr. Ivette David IG # 0.06 10e3/ul Critically high 0.00-0.03 [facility] Comment on above: Performed By: #### C BC ####[facility] Djnqbkhqhr0101[address] [place], [place] [address]Dr. Ivette Hernandez IG % 0.7 % Critically high 0.0-0.[address] [facility] Comment on above: Performed By: #### C BC ####[facility] Xhejfpspdu77[address] [place], [place] [address]Dr. Cherjun Hernandez LYMPH # 0.7 103/ul Critically low 1.2-3.8 [facility] Comment on above: Performed By: #### C BC ####[facility] Bqjqbvtlzn0044[address] [place], [place] [address]Dr. Ivette Hernandez Lymphocytes/100 WBC (Bld) 8.2 % Critically low 20.5-60.[address] [facility] Comment on above: Performed By: #### C BC ####[facility] Tavsqblpea9[address] [place], [place] [address]Dr. Cherjun Hernandez MANUAL DIFF REQ NO Normal [facility] Comment on above: Performed By: #### C BC ####[facility] Zoyimvejvp17[address] [place] [address]Dr. Ivette Hernandez MCH (RBC) [Entitic mass] 29.4 pg Normal 26.7-34.[address] [facility] Comment on above: Performed By: #### C BC ####[facility] Lwvvltlgpx1329 [place] [id number]. Cherjun Hernandez MCHC (RBC) [Mass/Vol] 31.5 g/dL Normal 29.9-35.[address] [facility] Comment on above: Performed By: #### C BC ####[facility] Datawvzxfh2428 [place] [phone]. Ivette Hernandez MCV (RBC) [Entitic vol] 93.2 fL Normal 81.0-99.[address] [facility] Comment on above: Performed By: #### C BC ####[facility] Jfrlehmsxu075[address] [place], [place] [address]Dr. Ivette Hernandez MONO # 0.3 103/ul Normal 0.3-0.[address] [facility] Comment on above: Performed By: #### C BC ####[facility] Tcazxoldqp846[address] [place], [place] [address]Dr. Ivette Hernandez Monocytes/100 WBC (Bld) 3.5 % Normal 1.7-12.[address] [facility] Comment on above: Performed By: #### C BC ####[facility] Atxuaetjvg210[address] [place], [place] [address]Dr. Ivette Hernandez NEUT # 7.6 103/ul Critically high 1.4-6.5 [facility] Comment on above: Performed By: #### C BC ####[facility] Oflbzvkeul1028[address] [place], [place] [address]Dr. Ivette Hernandez Neutrophils/100 WBC (Bld) 87.6 % Critically high 43.0-75.[address] [facility] Comment on above: Performed By: #### C BC ####[facility] Foorzspslo8268[address] [place], [place] [address]Dr. Ivette Hernandez Platelet mean volume (Bld) [Entitic vol] 9.6 fL Normal 9.5-13.[address] [facility] Comment on above: Performed By: #### C BC ####[facility] Ofbrntapyp418[address] [place], [place] [address]Dr. Ivette Hernandez PLT 224 103/ul Normal 150-[address] [facility] Comment on above: Performed By: #### C BC ####[facility] Vdcqhrfhkh3006 [place] [address]Dr. Ivette Hernandez RBC 2.79 106/ul Critically low 4.20-5.40 [facility] Comment on above: Performed By: #### C BC ####[facility] Ezctmmtqkh9759 [place] [phone]. Ivette Hernandez WBC 8.7 103/ul Normal 4.0-11.0 [facility] Comment on above: Performed By: #### C BC ####[facility] Ejsuykjbgf0874 [place] [address]Dr. Ivette Hernandez PROF 14(COMP METB)on 023 Albumin [Mass/Vol] 2.5 g/dL Critically low 3.4-5.[address] [facility] Comment on above: Performed By: #### C MP, BNP ####[facility] Hjujrmfxwe6799[address] [place], [place] [address]Dr. Ivette Hernandez Albumin/Globulin [Mass ratio] 0.6 {ratio} Normal [facility] Comment on above: Performed By: #### C MP, BNP ####[facility] Xzqczbueed0330[address] [place], [place] [address]Dr. Ivette Hernandez ALP [Catalytic activity/Vol] 66 U/L Normal 46-116 [facility] Comment on above: Performed By: #### C MP, BNP ####[facility] Zuerkxpcuv624168 [address] [place], [place] [address]Dr. Ivette Hernandez ALT [Catalytic activity/Vol] 20 U/L Normal 14-59 [facility] Comment on above: Performed By: #### C MP, BNP ####[facility] Cngghiotye9920[address] [place], [place] [address]Dr. Ivette Hernandez Anion gap [Moles/Vol] 9.1 mmol/L Normal [facility] Comment on above: Performed By: #### C MP, BNP ####[facility] Wdjaqkqfrc9626[address] [place], [place] [address]Dr. Ivette Hernandez AST [Catalytic activity/Vol] 11 U/L Critically low 15-37 [facility] Comment on above: Performed By: #### C MP, BNP ####[facility] Uykjbgzqqs4665[address] [place], [place] [address]Dr. Ivette Hernandez Bilirubin [Mass/Vol] 0.4 mg/dL Normal 0.2-1.[address] [facility] Comment on above: Performed By: #### C MP, BNP ####[facility] Cuelzggaug905168 [address] [place], [place] [address]Dr. Ivette Hernandez Calcium [Mass/Vol] 8.5 mg/dL Normal 8.5-10.[address] [facility] Comment on above: Performed By: #### C MP, BNP ####[facility] Wjfyqdiqyd0500[address] [place], [place] [address]Dr. Ivette Hernandez Chloride [Moles/Vol] 103 mmol/L Normal 98-[address] [facility] Comment on above: Performed By: #### C MP, BNP ####[facility] Srvteicqlv248268 [address] [place], [place] [address]Dr. Ivette Hernandez CO2 [Moles/Vol] 37.1 mmol/L Critically high 21.0-32.[address] [facility] Comment on above: Performed By: #### C MP, BNP ####[facility] Fdtjdqdrin216[address] [place], [place] [address]Dr. Ivette Hernandez Creatinine [Mass/Vol] 1.87 mg/dL Critically high 0.55-1.02 [facility] Comment on above: Performed By: #### C MP, BNP ####[facility] Ddkjvwfbbn376[address] [place], [place] [address]Dr. Ivette Hernandez EGFR-AF IVORIAN 32 mL/min/1.73m2 Critically low >=[address] [facility] Comment on above: Performed By: #### C MP, BNP ####[facility] Isujlysddc2230[address] [place], [place] [address]Dr. Ivette Hernandez EGFR-NON AF IVORIAN 26 mL/min/1.73m2 Critically low >=[address] [facility] Comment on above: Performed By: #### C MP, BNP ####[facility] Lkjhdbbjyr2126[address] [place], [place] [address]Dr. Ivette Hernandez Globulin (S) [Mass/Vol] 4.2 g/dL Normal [facility] Comment on above: Performed By: #### C MP, BNP ####[facility] Kxdzgdppdo8325[address] [place], [place] [address]Dr. Ivette Hernandez Glucose [Mass/Vol] 196 mg/dL Critically high 74-106 T [facility] Comment on above: Performed By: #### C MP, BNP ####[facility] Dykzbqyzcd128168 [address] [place], [place] [address]Dr. Ivette Hernandez Potassium [Moles/Vol] 4.2 mmol/L Normal 3.5-5.[address] [facility] Comment on above: Performed By: #### C MP, BNP ####[facility] Cxcmltkquw2744[address] [place], [place] [address]Dr. Ivette Hernandez Protein [Mass/Vol] 6.7 g/dL Normal 6.4-8.[address] [facility] Comment on above: Performed By: #### C MP, BNP ####[facility] Rrtknugroc037[address] [place], [place] [address]Dr. Ivette Hernandez Sodium [Moles/Vol] 145 mmol/L Normal 136-[address] [facility] Comment on above: Performed By: #### C MP, BNP ####[facility] Zqwtcqxscq260[address] [place], [place] [address]Dr. Ivette Hernandez Urea nitrogen [Mass/Vol] 45.0 mg/dL Critically high 7.0-18.[address] [facility] Comment on above: Performed By: #### C MP, BNP ####[facility] Ztlgaosoug4059[address] [place], [place] [address]Dr. Ivette Hernandez Urea nitrogen/Creatinine [Mass ratio] 24.1 mg/mg Normal [facility] Comment on above: Performed By: #### C MP, BNP ####[facility] Rexfbkwcet5708[address] [place], [place] [address]Dr. Ivette Hernandez BNPon 09-07-2022 Natriuretic peptide B (Bld) [Mass/Vol] 48306.0 pg/mL Critically high <=900.[address] [facility] Comment on above: Performed By: #### C MP, BNP ####[facility] Pwqbfyckvw[address] [place] [address]Dr. Ivette David CBC AUTO DIFFon 09-07-2022 BASO # 0.0 103/ul Normal 0.0-0.[address] [facility] Comment on above: Performed By: #### C BC ####[facility] Fclckmodol9070 [place] [address]Dr. Ivette Hernandez Basophils/100 WBC (Bld) 0.1 % Critically low 0.2-2.[address] [facility] Comment on above: Performed By: #### C BC ####[facility] Pebpjrmqjv9024[address] [place], [place] [address]Dr. Ivette Hernandez EO # 0.0 103/ul Normal 0.0-0.[address] [facility] Comment on above: Performed By: #### C BC ####[facility] Cbnvmtslve5280[address] [place], [place] [address]Dr. Ivette Hernandez Eosinophils/100 WBC (Bld) 0.0 % Critically low 0.9-7.[address] [facility] Comment on above: Performed By: #### C BC ####[facility] Tfghqvwfzt4168[address] [place], [place] [address]Dr. Ivette Hernandez Erythrocyte distribution width (RBC) [Ratio] 13.9 % Normal 11.0-15.[address] [facility] Comment on above: Performed By: #### C BC ####[facility] Tkdramndqf1904[address] [place], [place] [address]Dr. Ivette Hernandez Hematocrit (Bld) [Volume fraction] 26.6 % Critically low 36.0-48.[address] [facility] Comment on above: Performed By: #### C BC ####[facility] Cwcsmgtvly906[address] [place], [place] [address]Dr. Ivette Hernandez Hemoglobin (Bld) [Mass/Vol] 8.3 g/dL Critically low 12.0-16.[address] [facility] Comment on above: Performed By: #### C BC ####[facility] Izynbbpxww9637[address] [place], [place] [address]Dr. Ivette Hernandez IG # 0.07 10e3/ul Critically high 0.00-0.[address] [facility] Comment on above: Performed By: #### C BC ####[facility] Gnybhekcxp7537 [place] [id number]. Ivette Hernandez IG % 0.8 % Critically high 0.0-0.5 [facility] Comment on above: Performed By: #### C BC ####[facility] Bsqsaxiafq1276 [place] [phone]. Ivette Hernandez LYMPH # 0.6 103/ul Critically low 1.2-3.8 [facility] Comment on above: Performed By: #### C BC ####[facility] Jwakelsvji5[address] [place] [address]Dr. Ivette David Lymphocytes/100 WBC (Bld) 7.2 % Critically low 20.5-60.0 [facility] Comment on above: Performed By: #### C BC ####[facility] Jgklizdhzy0129[address] [place], [place] [address]Dr. Cherjun Hernandez MANUAL DIFF REQ NO Normal [facility] Comment on above: Performed By: #### C BC ####[facility] Ijjbgivsrx2754 [place] [address]Dr. Ivette Hernandez MCH (RBC) [Entitic mass] 29.5 pg Normal 26.7-34.0 [facility] Comment on above: Performed By: #### C BC ####[facility] Zeucyenzsw7149 [place] [address]Dr. Ivette Hernandez MCHC (RBC) [Mass/Vol] 31.2 g/dL Normal 29.9-35.2 [facility] Comment on above: Performed By: #### C BC ####[facility] Bgplyhhkry6173 [place] [address]Dr. Ivette Hernandez MCV (RBC) [Entitic vol] 94.7 fL Normal 81.0-99.[address] [facility] Comment on above: Performed By: #### C BC ####[facility] Pxikylkoyo665[address] [place], [place] [address]Dr. Ivette David MONO # 0.6 103/ul Normal 0.3-0.8 [facility] Comment on above: Performed By: #### C BC ####[facility] Eewcxfwjll7489 [place] [phone]. Ivette Hernandez Monocytes/100 WBC (Bld) 6.8 % Normal 1.7-12.[address] [facility] Comment on above: Performed By: #### C BC ####[facility] Etqnoqolrl9720 [place] [phone]. Ivette Hernandez NEUT # 7.4 103/ul Critically high 1.4-6.[address] [facility] Comment on above: Performed By: #### C BC ####[facility] Tppnucbfgh5220 [place] [address]Dr. Ivette Hernandez Neutrophils/100 WBC (Bld) 85.1 % Critically high 43.0-75.[address] [facility] Comment on above: Performed By: #### C BC ####[facility] Ijxxumhiyt3385 [place] [address]Dr. Ivette Hernandez Platelet mean volume (Bld) [Entitic vol] 9.5 fL Normal 9.5-13.5 [facility] Comment on above: Performed By: #### C BC ####[facility] Ghfxsxsaqo2385[address] [place], [place] [address]Dr. Ivette Hernandez PLT 227 103/ul Normal 150-[address] [facility] Comment on above: Performed By: #### C BC ####[facility] Kvsogejqme2777 [place] [address]Dr. Ivette Hernandez RBC 2.81 106/ul Critically low 4.20-5.[address] [facility] Comment on above: Performed By: #### C BC ####[facility] Xovhoqplte4262 [place] [phone]. Ivette Hernandez WBC 8.7 103/ul Normal 4.0-11.[address] [facility] Comment on above: Performed By: #### C BC ####[facility] Mwsiiscvaj8796[address] [place], [place] [address]Dr. Ivette Hernandez BASO # 0.0 103/ul Normal 0.0-0.[address] [facility] Comment on above: Performed By: #### C BC ####[facility] Xvrqvpulem0[address] [place], [place] [id number]. Ivette Hernandez Basophils/100 WBC (Bld) 0.0 % Critically low 0.2-2.[address] [facility] Comment on above: Performed By: #### C BC ####[facility] Akbkgaqdve8[address] [place], [place] [address]Dr. Ivette Hernandez EO # 0.0 103/ul Normal 0.0-0.[address] [facility] Comment on above: Performed By: #### C BC ####[facility] Ghjmmadahw6655[address] [place], [place] [address]Dr. Ivette Hernandez Eosinophils/100 WBC (Bld) 0.0 % Critically low 0.9-7.[address] [facility] Comment on above: Performed By: #### C BC ####[facility] Ajplllewdu8528[address] [place], [place] [address]Dr. Cherjun Hernandez Erythrocyte distribution width (RBC) [Ratio] 13.1 % Normal 11.0-15.[address] [facility] Comment on above: Performed By: #### C BC ####[facility] Afhdvhpcee3786[address] [place], [place] [address]Dr. Ivette Hernandez Hematocrit (Bld) [Volume fraction] 25.9 % Critically low 36.0-48.[address] [facility] Comment on above: Performed By: #### C BC ####[facility] Jbfwxzbdvt4896[address] [place], [place] [address]Dr. Ivette Hernandez Hemoglobin (Bld) [Mass/Vol] 8.0 g/dL Critically low 12.0-16.[address] [facility] Comment on above: Performed By: #### C BC ####[facility] Snjcsbdxwq1657[address] [place], [place] [address]Dr. Ivette David IG # 0.06 10e3/ul Critically high 0.00-0.[address] [facility] Comment on above: Performed By: #### C BC ####[facility] Wdbzewvmhj4977[address] [place], [place] [address]Dr. Cherjun Hernandez IG % 1.1 % Critically high 0.0-0.[address] [facility] Comment on above: Performed By: #### C BC ####[facility] Mnudmnuspf5390 [place] [phone]. Ivette David LYMPH # 0.8 103/ul Critically low 1.2-3.8 [facility] Comment on above: Performed By: #### C BC ####[facility] Xseezuegoq9287 [place] [phone]. Ivette Hernandez Lymphocytes/100 WBC (Bld) 14.8 % Critically low 20.5-60.0 [facility] Comment on above: Performed By: #### C BC ####[facility] Pyxzfrcani50[address] [place] [address]Dr. Ivette Hernandez MANUAL DIFF REQ NO Normal [facility] Comment on above: Performed By: #### C BC ####[facility] Aqnebjdrjl345[address] [place], [place] [address]Dr. Ivette Hernandez MCH (RBC) [Entitic mass] 29.7 pg Normal 26.7-34.0 [facility] Comment on above: Performed By: #### C BC ####[facility] Vizzlyhjpj9033[address] [place], [place] [address]Dr. Ivette Hernandez MCHC (RBC) [Mass/Vol] 30.9 g/dL Normal 29.9-35.2 [facility] Comment on above: Performed By: #### C BC ####[facility] Jwtrecqqtw226[address] [place], [place] [address]Dr. Ivette Hernandez MCV (RBC) [Entitic vol] 96.3 fL Normal 81.0-99.0 [facility] Comment on above: Performed By: #### C BC ####[facility] Dcxuzsdfqj280[address] [place], [place] [address]Dr. Ivette Hernandez MONO # 0.1 103/ul Critically low 0.3-0.8 [facility] Comment on above: Performed By: #### C BC ####[facility] Jxiwcdbtor556[address] [place], [place] [address]Dr. Ivette Hernandez Monocytes/100 WBC (Bld) 2.0 % Normal 1.7-12.0 [facility] Comment on above: Performed By: #### C BC ####[facility] Ykorinbzcx5729 [place] [phone]. Ivette Hernandez NEUT # 4.5 103/ul Normal 1.4-6.5 [facility] Comment on above: Performed By: #### C BC ####[facility] Rjybovlcps2231 [place] [phone]. Ivette Hernandez Neutrophils/100 WBC (Bld) 82.1 % Critically high 43.0-75.0 [facility] Comment on above: Performed By: #### C BC ####[facility] Wzwcmqmpci0003 [place] [phone]. Ivette Hernandez Platelet mean volume (Bld) [Entitic vol] 9.4 fL Critically low 9.5-13.5 [facility] Comment on above: Performed By: #### C BC ####[facility] Kkvljgnono7936 [place] [address]Dr. Ivette Hernandez PLT 224 103/ul Normal 150-[address] [facility] Comment on above: Performed By: #### C BC ####[facility] Wzeaeyydml8837 [place] [phone]. Ivette Hernandez RBC 2.69 106/ul Critically low 4.20-5.40 [facility] Comment on above: Performed By: #### C BC ####[facility] Qdfefhaixd3727 [place] [id number]. Ivette Hernandez WBC 5.5 103/ul Normal 4.0-11.[address] [facility] Comment on above: Performed By: #### C BC ####[facility] Uzwgbusbxt1460 [place] [phone]. Ivette Hernandez CULTURE SPUTUMon 09-07-2022 CULTURE SPUTUM Isolate 1 Carolee albicans Moderate growth of Normal [facility] Comment on above: Performed By: #### S PUTCX ####[facility] Wufulyynrf2096 [place] [id number]. Ivette Hernandez ECHOCARDIO M/2D COMPLETEon 0 09-07-2022 ECHOCARDIO M/2D COMPLETE Normal [facility] PRBC LEUKOREDUCEDon 09-08-19 23 PRBC LEUKOREDUCED Normal [facility] Comment on above: Performed By: #### P RBC ####[facility] Nukkyeqimm9199[address] [place], [place] [address]Dr. Ivette Hernandez PROF 14(COMP METB)on 023 Albumin [Mass/Vol] 2.4 g/dL Critically low 3.4-5.0 [facility] Comment on above: Performed By: #### C MP, BNP ####[facility] Lkddyfovts24[address] [place], [place] [address]Dr. Ivette Hernandez Albumin/Globulin [Mass ratio] 0.5 {ratio} Normal [facility] Comment on above: Performed By: #### C MP, BNP ####[facility] Cujhginqmg3875[address] [place], [place] [address]Dr. Ivette Hernandez ALP [Catalytic activity/Vol] 75 U/L Normal 46-116 [facility] Comment on above: Performed By: #### C MP, BNP ####[facility] Abdfdcnfhg0708[address] [place], [place] [address]Dr. Ivette Hernandez ALT [Catalytic activity/Vol] 17 U/L Normal 14-59 [facility] Comment on above: Performed By: #### C MP, BNP ####[facility] Lobkqjdetx1116[address] [place], [place] [address]Dr. Ivette Hernandez Anion gap [Moles/Vol] 11.3 mmol/L Normal [facility] Comment on above: Performed By: #### C MP, BNP ####[facility] Wlebhqtvnr45[address] [place], [place] [address]Dr. Ivette Hernandez AST [Catalytic activity/Vol] 15 U/L Normal 15-37 [facility] Comment on above: Performed By: #### C MP, BNP ####[facility] Piqrwkqofw12[address] [place], [place] [address]Dr. Ivette Hernandez Bilirubin [Mass/Vol] 0.3 mg/dL Normal 0.2-1.0 [facility] Comment on above: Performed By: #### C MP, BNP ####[facility] Agdumqzwcw2399[address] [place], [place] [address]Dr. Ivette Hernandez Calcium [Mass/Vol] 7.9 mg/dL Critically low 8.5-10.1 Th [facility] Comment on above: Performed By: #### C MP, BNP ####[facility] Jttpimtnnt2700[address] [place], [place] [address]Dr. Ivette Hernadnez Chloride [Moles/Vol] 104 mmol/L Normal 98-107 [facility] Comment on above: Performed By: #### C MP, BNP ####[facility] Fkpjgokhee7120[address] [place], [place] [address]Dr. Ivette Hernandez CO2 [Moles/Vol] 33.3 mmol/L Critically high 21.0-32.0 [facility] Comment on above: Performed By: #### C MP, BNP ####[facility] Vzenikgayb87[address] [place], [place] [address]Dr. Ivette Hernandez Creatinine [Mass/Vol] 1.68 mg/dL Critically high 0.55-1.02 [facility] Comment on above: Performed By: #### C MP, BNP ####[facility] Faxiiwolxk9375[address] [place], [place] [address]Dr. Ivette Hernandez EGFR-AF IVORIAN 36 mL/min/1.73m2 Critically low >=60 [facility] Comment on above: Performed By: #### C MP, BNP ####[facility] Yrlzkdtrwt476[address] [place], [place] [address]Dr. Ivette Hernandez EGFR-NON AF IVORIAN 30 mL/min/1.73m2 Critically low >=60 [facility] Comment on above: Performed By: #### C MP, BNP ####[facility] Csheffcnql0968[address] [place], [place] [address]Dr. Ivette Hernandez Globulin (S) [Mass/Vol] 4.5 g/dL Normal [facility] Comment on above: Performed By: #### C MP, BNP ####[facility] Hterahfheh4816[address] [place], [place] [address]Dr. Ivette Hernandez Glucose [Mass/Vol] 203 mg/dL Critically high 74-106 T [facility] Comment on above: Performed By: #### C MP, BNP ####[facility] Xxroiasyoz[address] [place] [address]Dr. Ivette Hernandez Potassium [Moles/Vol] 4.6 mmol/L Normal 3.5-5.[address] [facility] Comment on above: Performed By: #### C MP, BNP ####[facility] Fsoekepqae8857[address] [place], [place] [address]Dr. Ivette Hernandez Protein [Mass/Vol] 6.9 g/dL Normal 6.4-8.[address] [facility] Comment on above: Performed By: #### C MP, BNP ####[facility] Qipkavqlkp306[address] [place], [place] [address]Dr. Ivette Hernandez Sodium [Moles/Vol] 144 mmol/L Normal 136-[address] [facility] Comment on above: Performed By: #### C MP, BNP ####[facility] Hrzfkapzzk044[address] [place], [place] [address]Dr. Ivette Hernandez Urea nitrogen [Mass/Vol] 33.0 mg/dL Critically high 7.0-18.[address] [facility] Comment on above: Performed By: #### C MP, BNP ####[facility] Efvhdcqhds846[address] [place], [place] [address]Dr. Ivette Hernandez Urea nitrogen/Creatinine [Mass ratio] 19.6 mg/mg Normal The [facility] Comment on above: Performed By: #### C MP, BNP ####[facility] Wykmcuprks446[address] [place], [place] [address]Dr. Ivette Hernandez SPUTUM GRAM STAINon 09-08-19 COMMENTS Normal The [facility] Comment on above: Performed By: #### S PUTGS ####[facility] Beruztpeje523[address] [place], [place] [address]Dr. Ivette Hernandez DIPHTHEROIDS Normal The [facility] Comment on above: Performed By: #### S PUTGS ####[facility] Rvfuoijudz4567[address] [place], [place] [address]Dr. Ivette Hernandez EPITHELIALS <25 Normal [facility] Comment on above: Performed By: #### S PUTGS ####[facility] Pfmorsbely7999[address] [place], [place] [address]Dr. Ivette Hernandez FUNGAL ELEMENTS FEW Normal The [facility] Comment on above: Performed By: #### S PUTGS ####[facility] Mkzjzgnjyh64[address] [place] [address]Dr. Ivette Hernandez GRAM NEG BACILLI Normal The [facility] Comment on above: Performed By: #### S PUTGS ####[facility] Xgkovybdvf170[address] [place], [place] [address]Dr. Ivette Hernandez GRAM NEG DIPPLOCOCCI Normal The [facility] Comment on above: Performed By: #### S PUTGS ####[facility] Nwqovjzmht006[address] [place], [place] [address]Dr. Ivette Hernandez GRAM POS BACILLI Normal The [facility] Comment on above: Performed By: #### S PUTGS ####[facility] Hfchjixydh856[address] [place], [place] [address]Dr. Ivette Hernandez GRAM POSITIVE COCCI Normal The [facility] Comment on above: Performed By: #### S PUTGS ####[facility] Iwwfpigfoj8232[address] [place], [place] [address]Dr. Ivette Hernandez WBC (Bld) [#/Vol] 10*3/uL Normal The [facility] Comment on above: Performed By: #### S PUTGS ####[facility] Ehdyxohuhs40[address] [place], [place] [address]Dr. Ivette Hernandez TYPE AND SCREENon 09-07-2022 TYPE AND SCREEN Negative Normal The [facility] Comment on above: Performed By: #### T NS ####[facility] Csxpytwgsb2716[address] [place], [place] [address]Dr. Ivette Hernandez BNPon 09-06-2022 Natriuretic peptide B (Bld) [Mass/Vol] 32458.0 pg/mL Critically high <=900.[address] [facility] Comment on above: Performed By: #### B ENGLISH COMPOSITION INSTRUCTOR, HSTROPN, LIPA, CMP ####[facility] Mcehximnvs8199[address] [place], [place] [address]Dr. Ivette Hernandez CARDIAC CANDACE ADMITon 023 CK [Catalytic activity/Vol] 73 U/L Normal 26-[address] [facility] Comment on above: Performed By: #### C MADM, MG ####[facility] Ywhbvcyfbo4767 [place] [id number]. Cherjun Hernandez CK.MB [Mass/Vol] 1.68 ng/mL Normal <=3.[address] [facility] Comment on above: Performed By: #### C MADM, MG ####[facility] Yuilsfadwl8390 [place] [id number]. Ivette David HSTROP 14.7 pg/mL Normal 4.0-51.[address] [facility] Comment on above: Result Comment: CUT- OFF POINTS HAVE BEEN ESTABLISHED BASED ON THE FOURTH UNIVERSAL DEFINITIONS OF MYOCARDIALINFARCTION. THE UPPER REFERENCE LIMIT (URL) OF TROPONIN, DEFINED THE 99TH PERCENTILE OFcTnI DISTRIBUTION IN A REFERENCE POPULATION, HAS BEEN CONFIRMED THE DECISION THRESHOLDFOR [place] DIAGNOSIS. Performed By: #### C BENJYM, MG ####[facility] Auecxsptss[address] [place] [address]Dr. Cherjun Hernandez CARMITA 151 ng/mL Critically high 9-82 [facility] Comment on above: Performed By: #### C BENJYM, MG ####[facility] Vhicqtgpab8653 [place] [id number]. Cherjun Hernandez CBC AUTO DIFFon 09-06-2022 BASO # 0.0 103/ul Normal 0.0-0.1 [facility] Comment on above: Performed By: #### C BC ####[facility] Tpuvswcnxp0856 [place] [address]Dr. Ivette Hernandez Basophils/100 WBC (Bld) 0.4 % Normal 0.2-2.[address] [facility] Comment on above: Performed By: #### C BC ####[facility] Yuxauskhbw9840 [place] [id number]. Ivette Hernandez EO # 0.1 103/ul Normal 0.0-0.[address] [facility] Comment on above: Performed By: #### C BC ####[facility] Grvekisepq5412 [place] [id number]. Ivette Hernandez Eosinophils/100 WBC (Bld) 1.5 % Normal 0.9-7.[address] [facility] Comment on above: Performed By: #### C BC ####[facility] Jtedzpmpad9104 [place] [address]Dr. Ivette Hernandez Erythrocyte distribution width (RBC) [Ratio] 13.1 % Normal 11.0-15.0 [facility] Comment on above: Performed By: #### C BC ####[facility] Nbmzckauje5[address] [place], [place] [address]Dr. Ivette Hernandez Hematocrit (Bld) [Volume fraction] 26.8 % Critically low 36.0-48.0 [facility] Comment on above: Performed By: #### C BC ####[facility] Dtgmsugyws7798[address] [place], [place] [address]Dr. Ivette Hernandez Hemoglobin (Bld) [Mass/Vol] 8.4 g/dL Critically low 12.0-16.0 [facility] Comment on above: Performed By: #### C BC ####[facility] Mvpvcgaear5097[address] [place], [place] [address]Dr. Ivette Hernandez IG # 0.05 10e3/ul Critically high 0.00-0.03 [facility] Comment on above: Performed By: #### C BC ####[facility] Gexqgevfkw020[address] [place], [place] [address]Dr. Ivette Hernandez IG % 0.5 % Normal 0.0-0.5 [facility] Comment on above: Performed By: #### C BC ####[facility] Hcmflafqyh7718[address] [place], [place] [address]Dr. Ivette Hernandez LYMPH # 1.6 103/ul Normal 1.2-3.[address] [facility] Comment on above: Performed By: #### C BC ####[facility] Rbljkffftp9[address] [place], [place] [address]Dr. Ivette Hernandez Lymphocytes/100 WBC (Bld) 17.1 % Critically low 20.5-60.0 [facility] Comment on above: Performed By: #### C BC ####[facility] Qqzcssxemj6447[address] [place], [place] [address]Dr. Ivette Hernandez MANUAL DIFF REQ NO Normal [facility] Comment on above: Performed By: #### C BC ####[facility] Mtxibevcut1179 [place] [phone]. Ivette David MCH (RBC) [Entitic mass] 30.1 pg Normal 26.7-34.0 [facility] Comment on above: Performed By: #### C BC ####[facility] Nhdfzgmevd9566 [place] [phone]. Ivette David MCHC (RBC) [Mass/Vol] 31.3 g/dL Normal 29.9-35.[address] [facility] Comment on above: Performed By: #### C BC ####[facility] Drwkkcuclb7284 [place] [address]Dr. Ivette David MCV (RBC) [Entitic vol] 96.1 fL Normal 81.0-99.[address] [facility] Comment on above: Performed By: #### C BC ####[facility] Mtyicdbcge6569[address] [place], [place] [address]Dr. Ivette Hernandez MONO # 0.5 103/ul Normal 0.3-0.[address] [facility] Comment on above: Performed By: #### C BC ####[facility] Bslxkewsyd2925[address] [place], [place] [address]Dr. Cherjun Hernandez Monocytes/100 WBC (Bld) 5.3 % Normal 1.7-12.[address] [facility] Comment on above: Performed By: #### C BC ####[facility] Kcxvkmkdiy9[address] [place], [place] [address]Dr. Ivette Hernandez NEUT # 7.0 103/ul Critically high 1.4-6.[address] [facility] Comment on above: Performed By: #### C BC ####[facility] Hcdkvduiuq12[address] [place], [place] [address]DrJesse Hernandez Neutrophils/100 WBC (Bld) 75.2 % Critically high 43.0-75.[address] [facility] Comment on above: Performed By: #### C BC ####[facility] Nndbkrpvvw3780[address] [place], [place] [address]Dr. Ivette Hernandez Platelet mean volume (Bld) [Entitic vol] 9.5 fL Normal 9.5-13.5 [facility] Comment on above: Performed By: #### C BC ####[facility] Tmleibyupn1006 [place] [phone]. Ivette Hernandez PLT 257 103/ul Normal 150-[address] [facility] Comment on above: Performed By: #### C BC ####[facility] Pnbkckoihp1642 [place] [phone]. Ivette Hernandez RBC 2.79 106/ul Critically low 4.20-5.40 [facility] Comment on above: Performed By: #### C BC ####[facility] Sygejttegm5771 [place] [phone]. Ivette Hernandez WBC 9.3 103/ul Normal 4.0-11.0 [facility] Comment on above: Performed By: #### C BC ####[facility] Somqwezguf0131 [place] [phone]. Ivette Hernandez CULTURE BLOODon 09-06-2022 Microscopic examination of blood, culture Culture Observations: NO GROWTH AT 5 DAYS. Normal [facility] Comment on above: Performed By: #### B LDCX2 ####[facility] J[address]qmyznmnb[address] [place], [place] [id number]. Ivette Hernandez Microscopic examination of blood, culture Culture Observations: NO GROWTH AT 5 DAYS. Normal [facility] Comment on above: Performed By: #### B LDCX1 ####[facility] Luerjvtzbb4598 [place] [phone]. Ivette Hernandez CULTURE URINEon 09-06-2022 CULTURE URINE Culture Observations : LIGHT GROWTH OF MIXED GENITAL BOB. NO POTENTIAL PATHOGENS SEEN. Normal [facility] Comment on above: Performed By: #### U RCX ####[facility] Cassolexln7820[address] [place], [place] [address]Dr. Ivette Hernandez Covid-19 PCR (CVDTBH)on SARS-CoV-2 (COVID-19) RNA MARRY+probe Ql (Unsp spec) Not detected Normal NOT DETECTED The [facility] Comment on above: Result Comment: This test is not yet approved or cleared by the [place] FDA. When there are no FDA-approved or cleared tests available, and other criteria are met, FDA can make tests available under an emergency access mechanism called an Emergency Use Authorization (EUA). The EUA for this test is supported by the [place] of Health and Human Service's (HHS's) declaration [...] with SARS-CoV-2. Performed By: #### C VDTBH ####[facility] Rnttajalvk66[address] [place], [place] [address]Dr. Ivette Hernandez LACTATE/LACTIC ACIDon 2022 Lactate [Moles/Vol] 0.6 mmol/L Normal 0.4-2.0 [facility] Comment on above: Performed By: #### L ACT ####[facility] Pypzcvhxnu9176[address] [place], [place] [address]Dr. Ivette [facility] Lactate [Moles/Vol] 0.8 mmol/L Normal 0.4-2.[address] [facility] Comment on above: Performed By: #### L ACT ####[facility] Jcfyzdfune[address] [place], [place] [address]Dr. Ivette Hernandez LIPASEon 09-06-2022 Lipase [Catalytic activity/Vol] 157.0 U/L Normal 73.0-393.[address] [facility] Comment on above: Performed By: #### B ENGLISH COMPOSITION INSTRUCTOR, HSTROPN, LIPA, CMP ####[facility] Chpsdnpuef709[address] [place], [place] [address]Dr. Ivette [facility] MAGNESIUMon 09-06-2022 Magnesium [Mass/Vol] 1.6 mg/dL Critically low 1.8-2.[address] [facility] Comment on above: Performed By: #### C MADM, MG ####[facility] Txlfmxjltm360[address] [place] [address]Dr. Ivette Hernandez PROF 14(COMP METB)on 023 Albumin [Mass/Vol] 2.5 g/dL Critically low 3.4-5.[address] [facility] Comment on above: Performed By: #### B ENGLISH COMPOSITION INSTRUCTOR, HSTROPN, LIPA, CMP ####[facility] Zsgufzrlqs[address] [place] [address]Dr. Ivette Hernandez Albumin/Globulin [Mass ratio] 0.5 {ratio} Normal [facility] Comment on above: Performed By: #### B ENGLISH COMPOSITION INSTRUCTOR, HSTROPN, LIPA, CMP ####[facility] Nyvutxnqkx[address] [place], [place] [address]Dr. Ivette Hernandez ALP [Catalytic activity/Vol] 85 U/L Normal 46-116 [facility] Comment on above: Performed By: #### B ENGLISH COMPOSITION INSTRUCTOR, HSTROPN, LIPA, CMP ####[facility] Wnkolpvpgq15[address] [place], [place] [address]Dr. Ivette Hernandez ALT [Catalytic activity/Vol] 18 U/L Normal 14-59 [facility] Comment on above: Performed By: #### B ENGLISH COMPOSITION INSTRUCTOR, HSTROPN, LIPA, CMP ####[facility] Wiuwuobjfy4127 [place] [address]Dr. Ivette Hernandez Anion gap [Moles/Vol] 9.1 mmol/L Normal [facility] Comment on above: Performed By: #### B ENGLISH COMPOSITION INSTRUCTOR, HSTROPN, LIPA, CMP ####[facility] Drzogoguin9265[address] [place], [place] [address]Dr. Ivette Hernandez AST [Catalytic activity/Vol] 18 U/L Normal 15-37 [facility] Comment on above: Performed By: #### B ENGLISH COMPOSITION INSTRUCTOR, HSTROPN, LIPA, CMP ####[facility] Qvhmsawjrb9118[address] [place], [place] [address]Dr. Ivette Hernandez Bilirubin [Mass/Vol] 0.5 mg/dL Normal 0.2-1.0 [facility] Comment on above: Performed By: #### B ENGLISH COMPOSITION INSTRUCTOR, HSTROPN, LIPA, CMP ####[facility] Edmxeromgl80[address] [place] [address]Dr. Ivette Hernandez Calcium [Mass/Vol] 7.8 mg/dL Critically low 8.5-10.[address] [facility] Comment on above: Performed By: #### B ENGLISH COMPOSITION INSTRUCTOR, HSTROPN, LIPA, CMP ####[facility] Vygyzbjyra8156 [place] [address]Dr. Ivette Hernandez Chloride [Moles/Vol] 103 mmol/L Normal 98-[address] [facility] Comment on above: Performed By: #### B ENGLISH COMPOSITION INSTRUCTOR, HSTROPN, LIPA, CMP ####[facility] Iaewqwqlfh427[address] [place], [place] [address]Dr. Ivette Hernandez CO2 [Moles/Vol] 32.8 mmol/L Critically high 21.0-32.0 [facility] Comment on above: Performed By: #### B ENGLISH COMPOSITION INSTRUCTOR, HSTROPN, LIPA, CMP ####[facility] Mouwuewmrj50[address] [place], [place] [address]Dr. Ivette Hernandez Creatinine [Mass/Vol] 1.79 mg/dL Critically high 0.55-1.02 [facility] Comment on above: Performed By: #### B ENGLISH COMPOSITION INSTRUCTOR, HSTROPN, LIPA, CMP ####[facility] Scsjzjflyf11[address] [place], [place] [address]Dr. Ivette Hernandez EGFR-AF IVORIAN 34 mL/min/1.73m2 Critically low >=[address] [facility] Comment on above: Performed By: #### B ENGLISH COMPOSITION INSTRUCTOR, HSTROPN, LIPA, CMP ####[facility] Lypssvwotk[address] [place], [place] [address]Dr. Ivette Hernandez EGFR-NON AF IVORIAN 28 mL/min/1.73m2 Critically low >=[address] [facility] Comment on above: Performed By: #### B ENGLISH COMPOSITION INSTRUCTOR, HSTROPN, LIPA, CMP ####[facility] Wpzsmdrcby1209 [place] [address]Dr. Ivette Hernandez Globulin (S) [Mass/Vol] 4.6 g/dL Normal The [facility] Comment on above: Performed By: #### B ENGLISH COMPOSITION INSTRUCTOR, HSTROPN, LIPA, CMP ####[facility] Lgjpstkvqw1688 [place] [address]Dr. Ivette Hernandez Glucose [Mass/Vol] 170 mg/dL Critically high 74-106 T [facility] Comment on above: Performed By: #### B ENGLISH COMPOSITION INSTRUCTOR, HSTROPN, LIPA, CMP ####[facility] Wsggpdiimt1115 [place] [address]Dr. Ivette Hernandez Potassium [Moles/Vol] 3.9 mmol/L Normal 3.5-5.1 [facility] Comment on above: Performed By: #### B ENGLISH COMPOSITION INSTRUCTOR, HSTROPN, LIPA, CMP ####[facility] Lgissmndsd430[address] [place], [place] [address]Dr. Ivette Hernandez Protein [Mass/Vol] 7.1 g/dL Normal 6.4-8.[address] [facility] Comment on above: Performed By: #### B ENGLISH COMPOSITION INSTRUCTOR, HSTROPN, LIPA, CMP ####[facility] Zyqxcyyxmm79[address] [place], [place] [address]Dr. Ivette Hernandez Sodium [Moles/Vol] 141 mmol/L Normal 136-[address] [facility] Comment on above: Performed By: #### B ENGLISH COMPOSITION INSTRUCTOR, HSTROPN, LIPA, CMP ####[facility] Uhsrmdkwgz9208 [place] [address]Dr. Ivette Hernandez Urea nitrogen [Mass/Vol] 31.0 mg/dL Critically high 7.0-18.0 [facility] Comment on above: Performed By: #### B ENGLISH COMPOSITION INSTRUCTOR, HSTROPN, LIPA, CMP ####[facility] Eeaiosvzuw6138 [place] [address]Dr. Ivette Hernandez Urea nitrogen/Creatinine [Mass ratio] 17.3 mg/mg Normal The [facility] Comment on above: Performed By: #### B ENGLISH COMPOSITION INSTRUCTOR, HSTROPN, LIPA, CMP ####[facility] Umejmnglut77[address] [place] [address]Dr. Ivette Hernandez PROTIMEon 09-06-2022 INR Coag (PPP) [Relative time] 1.13 {INR} Normal The [facility] Comment on above: Performed By: #### P TT, PT ####[facility] Exwojprrbf67[address] [place] [address]Dr. Ivette Hernandez INR GUIDELINES SEE BELOW Normal The [facility] Comment on above: Result Comment: MELANIE RED INR: 2.0 - 3.0 CONDITIONS NOT LISTED BELOW 2.5 - 3.5 FOR PROSTHETIC HEART VALVE REPLACEMENT 2.5 - 3.5 RECURRENT THROMBOSIS Performed By: #### P TT, PT ####[facility] Sajrxiglmd64[address] [place] [address]Dr. Ivette Hernandez PT Coag (PPP) [Time] 11.9 s Critically high 9.0-11.[address] [facility] Comment on above: Performed By: #### P TT, PT ####[facility] Ljabnomyhc6592 [place] [address]Dr. Cherjun David PTTon 09-06-2022 aPTT Coag (Bld) [Time] 29.6 s Normal 22.3-36.[address] [facility] Comment on above: Performed By: #### P TT, PT ####[facility] Hasdyypvjx59[address] [place] [address]Dr. Ivette Hernandez SYMPTOMATIC COVID-19 ANTIGEN on 09-06-2022 EUA Statement SEE BELOW Normal The [facility] Comment on above: Result Comment: This [...] revoked sooner. Performed By: #### C VDAGS ####[facility] Sbdfsnvbhs4043 [place] [address]Dr. Ivette Hernandez SARS-CoV-2 (COVID-19) RNA MARRY+probe Ql (Unsp spec) Negative Normal NEGATIVE The [facility] Comment on above: Performed By: #### C VDAGS ####[facility] Ysgpxgruqq6[address] [place], [place] [address]Dr. Ivette Hernandez TROPONIN, HIGH SENSITIVITYon 09-06-2022 HSTROP 13.1 pg/mL Normal 4.0-51.[address] [facility] Comment on above: Result Comment: CUT- OFF POINTS HAVE BEEN ESTABLISHED BASED ON THE FOURTH UNIVERSAL DEFINITIONS OF MYOCARDIALINFARCTION. THE UPPER REFERENCE LIMIT (URL) OF TROPONIN, DEFINED THE 99TH PERCENTILE OFcTnI DISTRIBUTION IN A REFERENCE POPULATION, HAS BEEN CONFIRMED THE DECISION THRESHOLDFOR [place] DIAGNOSIS. Performed By: #### B ENGLISH COMPOSITION INSTRUCTOR, HSTROPN, LIPA, CMP ####[facility] [address]upvwpwsoz[address] [place], [place] [address]Dr. Ivette Hernandez UA RANDOM W/MICROSCOPICon BACTERIA SMALL Abnormal NONE SEEN [facility] [facility] Comment on above: Performed By: #### U AMIC ####[facility] Euuxnbqszx[address] [place], [place] [address]Dr. Ivette Hernandez Bilirubin Ql (U) Negative Normal NEGATIVE [facility] Comment on above: Performed By: #### U AMIC ####[facility] Khbymkuolq[address] [place], [place] [address]Dr. Ivette Hernandez CAST NONE SEEN Normal NONE SEEN [facility] Comment on above: Performed By: #### U AMIC ####[facility] Pvlmxwudif[address] [place], [place] [address]Dr. Ivette Hernandez Clarity (U) CLEAR Normal CLEAR [facility] Comment on above: Performed By: #### U AMIC ####[facility] B[address]bhv[address] [place], [place] [address]Dr. Ivette Hernandez Color (U) LT. YELLOW Normal YELLOW [facility] Comment on above: Performed By: #### U AMIC ####[facility] Wwatkrjril[address] [place], [place] [address]Dr. Yilan Hernandez Crystals LM Nom (Urine sed) NONE SEEN Normal NONE SEEN The [facility] Comment on above: Performed By: #### U AMIC ####[facility] [address] [place] [address]Dr. Ivette Hernandez Epithelial cells LM Ql (Urine sed) FEW Abnormal NONE SEEN /RARE [facility] Comment on above: Performed By: #### U AMIC ####[facility] [address] [place] [address]Dr. Ivette Hernadnez Glucose Ql (U) Negative Normal NEGATIVE [facility] Comment on above: Performed By: #### U AMIC ####[facility] Ustudgyllj[address] [place], [place] [address]Dr. Ivette Hernandez Hemoglobin Ql (U) SMALL Abnormal NEGATIVE [facility] Comment on above: Performed By: #### U AMIC ####[facility] O[address]cgj[address] [place], [place] [address]Dr. Ivette Hernandez Ketones Ql (U) Negative Normal NEGATIVE [facility] Comment on above: Performed By: #### U AMIC ####[facility] Dybeqhwtjw[address] [place], [place] [address]Dr. Ivette Hernandez LEUKOCYTES TRACE Abnormal NEGATIVE The [facility] Comment on above: Performed By: #### U AMIC ####[facility] Refrspeipq33[address] [place], [place] [address]Dr. Ivette Hernandez MUCOUS NONE SEEN Normal NONE SEEN [facility] Comment on above: Performed By: #### U AMIC ####[facility] Vuqlubwtqi32[address] [place], [place] [address]Dr. Ivette Hernandez Nitrite Ql (U) Negative Normal NEGATIVE [facility] Comment on above: Performed By: #### U AMIC ####[facility] Jtbwryavbp[address] [place], [place] [address]Dr. Ivette Hernandez pH (U) 7.5 [pH] Normal 5-[address] [facility] Comment on above: Performed By: #### U AMIC ####[facility] Ghqqengepo8[address] [place], [place] [address]Dr. Ivette Hernandez RBC 0-2 Normal 0-[address] [facility] Comment on above: Performed By: #### U AMIC ####[facility] [address] [place], [place] [address]Ol. Ivette Hernandez SPEC GRAVITY 1.020 Normal 1.005-<=1.[address] [facility] Comment on above: Performed By: #### U AMIC ####[facility] [address] [place], [place] [address]Gf. Ivette Hernandez UA PROTEIN 300 mg/dl Abnormal NEGATIVE/ TRACE [facility] Comment on above: Performed By: #### U AMIC ####[facility] [address]gjk[address] [place], [place] [address]Am. Ivette Hernandez Urobilinogen Qn (U) 0.2 {Mack'U}/dL Normal 0.2 - 1. [address] [facility] Comment on above: Performed By: #### U AMIC ####[facility] [address] [place] [address]Dr. Ivette Hernandez WBC 5-10 Abnormal NONE SEEN [facility] Comment on above: Performed By: #### U AMIC ####[facility] [address] [place], [place] [address]Ih. Ivette Hernandez XR CHEST 1 Von 09-06-2022 XR CHEST 1 V Normal [facility] Patient Educationon 07-30-19 Patient Education Nutrition [...] You could (more content not included)... Normal [facility] Urology Office/Clinic Noteon 07-29-2022 Urology Office/Clinic [...] further imaging. Follow-up With When Contact Information Alec XIE, Jacqui Nieves, URL, URO In 6 months Additional Instructions: Patient Education Calorie Counting for Weight Loss I, Alba Hayes, personally scribed for Dr. Michael on 07/29/2022 09:52:47. . Documentation recorded by the luis armandoibAlba berumen, accurately reflects the services(s) I performed and [...] outlet re (more content not included)... Normal [facility] Comment on above: Result Comment: Elec tronically Signed By: Jacqui Michael MD\.br\Date and Time Signed: 07/29/22 17:58 EDT\.br\Electronically Co-Signed By: Alba Hayes\.br\Date and Time Co-Signed: 07/29/22 09:52 EDT Ambulatory Visit Summaryon 0 07-08-2022 Ambulatory Visit Summary MARTIN HAGEN :1950 Visit Date:07/08/2022 Ambulatory Visit Instructions Your Care Team Attending Physician - INES WELCH PA-C Primary Care Physician - SUNIL XIE, SHAWN [...] XIE, Jacqui Nieves Where: [facility] Nurse Consultation Noteon Nurse Consultation [...] 07/29/22 to review labs & PVR Normal [facility] PROF CHEM 8 (BAS METB)on Anion gap [Moles/Vol] 12.3 mmol/L Normal [facility] Comment on above: Performed By: #### B MP ####[facility] [address] [place] [address]Dr. Ivette Hernandez Calcium [Mass/Vol] 9.4 mg/dL Normal 8.5-10.[address] [facility] Comment on above: Performed By: #### B MP ####[facility] [address]ix[address] [place] [address]Dr. Ivette Hernandez Chloride [Moles/Vol] 105 mmol/L Normal 98-107 [facility] Comment on above: Performed By: #### B MP ####[facility] Saymketqon[address] [place], [place] [address]Dr. Ivette Hernandez CO2 [Moles/Vol] 30.2 mmol/L Normal 21.0-32.0 [facility] Comment on above: Performed By: #### B MP ####[facility] Vetmdrkuwx[address] [place], [place] [address]Dr. Ivette Hernandez Creatinine [Mass/Vol] 2.66 mg/dL Critically high 0.55-1.02 [facility] Comment on above: Performed By: #### B MP ####[facility] Mmsnbowvgs06[address] [place], [place] [address]Dr. Ivette Hernandez EGFR-AF IVORIAN 21 mL/min/1.73m2 Critically low >=60 [facility] Comment on above: Performed By: #### B MP ####[facility] Ghqyujimjn13[address] [place], [place] [address]Dr. Ivette Hernandez EGFR-NON AF IVORIAN 18 mL/min/1.73m2 Critically low >=60 [facility] Comment on above: Performed By: #### B MP ####[facility] Hblcixcees[address] [place], [place] [address]Dr. Ivette Hernandez Glucose [Mass/Vol] 126 mg/dL Critically high 74-106 [facility] Comment on above: Performed By: #### B MP ####[facility] Dgmnwgithc[address] [place], [place] [address]Dr. Ivette Hernandez Potassium [Moles/Vol] 4.5 mmol/L Normal 3.5-5.[address] [facility] Comment on above: Performed By: #### B MP ####[facility] Ljfqqjcxir[address] [place], [place] [address]Dr. Ivette Hernandez Sodium [Moles/Vol] 143 mmol/L Normal 136-[address] [facility] Comment on above: Performed By: #### B MP ####[facility] Zftyuhaepv[address] [place], [place] [address]Dr. Ivette Hernandez Urea nitrogen [Mass/Vol] 55.0 mg/dL Critically high 7.0-18.0 [facility] Comment on above: Performed By: #### B MP ####[facility] Lookrmpuny[address] [place] [id number]. Ivette Hernandez Urea nitrogen/Creatinine [Mass ratio] 20.7 mg/mg Normal [facility] Comment on above: Performed By: #### B MP ####[facility] [address]fw[address] [place] [address]Dr. Ivette Hernandez Office Visiton 07-06-2022 Follow-up visit [id number] Maria G Hagen 1950 F Date Provider Department Center 07/06/2022 [facility] Family History Problem Relation Age of Onset Stroke Mother Hypertension Mother Heart attack Father Hypertension Sister Heart attack Sister Heart attack Brother Family Status - Relation Status Age at Mother Father Sister Brother Level of Service:52[address] [place] OFFICE/OUTPATIENT ESTABLISHED MOD MDM 30-39 MIN Reason for Visit and Comments: Congestive Heart Failure [127] Atrial Fibrillation [80] Normal [facility] Lab Reportson 06-24-2022 Lab Reports [id number] 0CD:127 Normal [facility] METANEPHRINES PLASMA FREEon 06-24-2022 Metanephrine, Pl 16.5 pg/mL Normal 0.0-88.0 [facility] Comment on above: Performed By: #### M ETANPF ####[facility] [address]ws[address] [place] [address]Dr. Ivette Hernandez Normetanephrine, Pl 67.2 pg/mL Normal 0.0-285.2 [facility] Comment on above: Performed By: #### M ETANPF ####[facility] [address] [place] [address]Dr. Ivette Hernandez Lab Reportson 06-23-2022 Lab Reports [id number] 0CD:127 Normal [facility] ALDOSTERONE: RENIN RATIOon 0 2-18-2023 Aldos/Renin Ratio 12.0 Normal 0.0-30.0 [facility] Comment on above: Result Comment: Unit s: ng/dL per ng/mL/hr Performed By: #### A LDOREN ####[facility] [address] [place] [id number]. Ivette Hernandez Aldosterone 3.8 ng/dL Normal 0.0-30.[address] [facility] Comment on above: Performed By: #### A LDOREN ####[facility] [address] [place] [address]Dr. Ivette Hernandez Renin Activity, Plasma 0.316 ng/mL/hr Normal 0.167-5.[address] [facility] Comment on above: Performed By: #### A LOUIEOREN ####[facility] [address] [place] [address]Dr. Ivette Hernandez CORTISOLon 06-16-2022 Cortisol 2.7 ug/dL Normal [facility] Comment on above: Result Comment: Too isol AM 6.2 - 19.4 Cortisol PM 2.3 - 11.9 Performed By: #### C ORTISO ####[facility] Q[address]jdf[address] [place] [address]Dr. Ivette Hernandez Coding Summary.on 06-15-2022 Coding Summary. CD:[id number] Gh 0bWw+PGhlYWQ+BU2TYNSvM 09kmZKxjV8KL8nPFO6DLDN XJBGQFE5QNQ3vcJX2PAdpU 2VybiAv UwilbQVaLQ96POj5PTM6zX iaJKhmnY1quOZmH3q3EfEx HA92zC18KDipTUCxWkL9Qw ZpbjsgbWFy S0hjTrYzwTYePua+PHRhYm xlIHdpZHRoPScxMDAlJyBz wAcsLU9pZw2jDVEcSBVyeE xhcHNlOiBj a7vmLDCzHLjyNQ1caUsdO6 ToaFN5CPWbw4y0Mn48aHA+ XLIgXGL1lHvnOFrxm780Od Rrw6knOXO8 zJQnSGrrFJI4H46yr8L7UV QvPWQwERP0hMJ9cI2epQqk kudhT2CflRGiMcK5GNB2aK IdwV3lmGdd bfduwQ8aYfz+W67EBX2TMY KUTE3ODhk3F6QaGudnsKK+ VU87CLEkEG34aMNajNWlr6 snoXh7EsTa WMMrGUX2fSgsLAomv4BfRK OeP43cyOHss2F9HPLlxZnq pMNjPoEyhGQ5vM3vLMerpi vyg0tqebta Ewknn4xjsc71kC53J74rUC erJVWnVRF1AWGuSGJpdYks ye9buK7vKw3+AHaaz5mju2 oifFd5HuKf QOPeffVilOmvSCK0l2OsAc 13H9IluTlqs8AiThu9bk28 oKVgr1L8cQO2EZbcAAXgbI 4qQAsjPvV8 PNEhKuVluB19oBEuHMgiOp 9frDxqiJfmRX2yXUTdewmu ATYvpI9wYOSbaMJfsYnwTT 4wNTBpbjtm d479BnGrZCO2PZFvsFWrD6 OlrB4nTdXgDNQnYZQiU4Ql mUKwTAdrA816DNkrFnP1YR BvcjJfX5Np HBCduChiQlW6d0B8Ed8Bw6 NbitocYWK6WLleEAVeWrLq JxDgKhP5P7GmCpw8SHNisA cdZT1bU3Je QDQmkwhsvcrvzAW1DUEsRP LysV65hLDuOYtuPe3vz4J8 j553HKMhTMAvhH29Mx5xvL ogMTBwdCBU eG3ledzob4txocgdEtQwTS LeBKo7HDl1TJTedCuzAjTh CCI3AdB9NVM6gQXcuH1bzV xggzlkpX0n Oyc+O45laQ0yLMK8HIT5sx ubKOBohqUlMG88XE69A6Zj PjwvdGFibGU+PGRpdiBzdH joNZ2nReFf i2nqs2HnQXfmE5XeHCCkUG wvMpl7ZZJoYOD6rCC5gG2a CQPpZCoim4D9zNV3V4Cbvj Kreo2wr5yu JDEsQAouJ19mkKLay7B5IW GogDW2ULZgyLxvTrJebH33 Oyc+BGXhwIhgv0VfLcnpe8 ean3hfxFy2 ReMsPIQkvwErwUqjMVS4b8 XdJu57W77vCRmjQGGzEWSh ZNAaWNGbyXgvjo5ytQ5gQr 8+PGNvbCB3 zWL5uM3aTYPpMrJ1GHjwW2 87KzEatSZmEqitk1jbc2kh tSz0CoSrLARhwqOodLyoPC G7b5OmCf57 C33mJPblXVDsIMIsVRSsAV IrnDhchd5foK1sUm5+PC9j l8qsmx71fM65nFP+PHRkIH L7aMhqXHjs FTDsqM7zWOyoTeW3JEGiZk BhaC98eQIjTZixAv5lcCmx gNxxWA0uQMPxuaiiy605Yj Ngn9zaZNBu rIVbUZqfZNY1G99do0F5UH LrXEQlYRY6hCJ4dF1hlYvy bjogbGVmdDsgdmVydGljYW axXVcfA263 IHRvcDsnPlBhdGllbnQgTm ZmRMa3G6JhPmo5GHWmcZgh RF6hqACkNUhyAf8qjGtpoD dwTO9cQTBm fiyfn789NfAih4qbUFHjmR VwAQpeCXZ1D18mn2L9TOTu KAIbWFU0jSD1iJ2gaVxyou ogbGVmdDsg dcWqyZukSBhpLCdiJ070OE RvcDsnPkJpcnRoIERhdGU6 RU93FE04iOXfm3A0dLZ6U2 BhZGRpbmct pdpurUG3UPWzQYQhnR42Jb 0ngTbbVx7dMLWjNVO7LTMk xILkC5ZbaR9zByRdQNKoIS UbS7EubKWz WIauB478HDorFeF1XNQoeb JqT1MuUUEqiPznUcV5r6Z0 Ti6TB5Z7AR96SL02wIGjg0 N7dZJ5W9Ft WDFcfnutmrdfsOB0QVEkMY UgwI46Zp7tvIrqMw5uQHLq AFX7KFRbwCLiL0YgkC3mJm AjMDAwMDAw W9MsdTRhGMykD691RIigRh G0IXNvatJuA6DtXKNyqRkh ZiH6t8W0Xv7WIDu5LD89AK 24iSZgt5Y9 oTQ0Q3LrXEQwfhdefvyceT S9OFTqOMJduT84Qm0qdIbr Iy3kOMUtNVQ0HFLamDMcA0 MfkC3pFnUc ZXIwTRWaW5FtxRIyCSerD8 16SBtfTbT7HYQspwObM2Ru NYIuzZtnLkZ8e4V6Na6EQL AiHC44OEZ4 iCL4OP36YG54Q5TmCijrxI FibGU+PHRhYmxlIHdpZHRo LLrpRCIgBxCxlJhwBW6dIj 9yZGVyLWNv oSyvmVGwAdDta7eeDATqIK scTK8elJsyZ8NtpIT1NVZj m5l5Lq54J20cR7ScoVC+PG FvnNN0nOW3 sK1eWkVeJjN4BLiiA283Um RxtDNlZqvtw2mqf3uldPw6 KhS4BSWjgiRswCbyIMZ8c7 ZjVi52H76t IHdpZHRoPSIxNSUiIHZhbG pxlf9pjX7wPo7+PGNvbCB3 sMR6rU4pMvSrVgI0PTcyR4 49InRvcCIv Bvndj5aen7kzgLi4DaJnZC EywhXqhDrzWZZ3y3XtEu78 O0BhwOnij0QaVfp0wu12zG Psy4W7iGQ4 M6WcONDfekeytOPqaYlbYY 2hTVDrkcjjIJOujQ7wEKKh Y7k2QyDsOjZ6GLrkA0Urni Q8KMBwuOSa PEnvNDQ8P73fb9H6UBNjKT CeMHX9uGA4pC4bdCndqqea bGVmdDsgdmVydGljYWwtYW zzZ374JQZr rDvvXXTodY8rQIEgnRMdrP dwJL2aFOXeiqmsJnDCU8oJ JPCvBPIMAzO7D0YvChs5TU QdyAkfAV7j wRCpZGdlSy8koTgesEqmQK 0wBGQiipjrMWQjuT5pPGDc qXVgkCjpXY3rKGNckvvae7 99EwKvJIS0 WZJuoCDmS6JzgN6sIkLtHR YlJSHzA6AtvXHwDUscX267 CEsqBzK0MTBwdqWoN9MdWF FsaWduOiB0 i1D9Lm6uDA1jGs6xOTX8WO 54RP81dPUtd1O5qWG9K6Yy TAFupzitkxgchOS7NACdLN HvmD60eOVv ZKapYf5zh5Q4y637DZHaWB HqrY68Rp3rsBemCHXvvHLH kM4frwziq8cfftsyEyThIY WxQUc0FFx7 BLVewNflDtFpALU6VkM9HI Q4kNGnzX9cyJlllbyomL3m Oyc+HhQkRGNtzfX4K8VeZt c1NKEvmJcl UP0ycXRaXQogJa0szBuolO veZP5gLHPytareUGMkvP5a STRtpDFwwEobCX7yWLQhnk pjg576EeNy KZJ5RLGtgUPzU8HufE1mYn TvWNHkEMTxM2ArpXXlJXmy O728WHzeOxF1IEThscIxM5 FsLWFsaWdu DwN7h5K7Jp3WXZ2plMR9G8 JjAdj9ZMArsUpzGD2xeOAa CMccTh1ycDguuUycMV5fQD BpbjtwYWRk rH9vBFMclVLqwFsmCI2tBT Rmhmljz763OwKqGNO7MMUh fUNlW1DddB8xHzKuHHBzGD KnY0NxjNUh MXksE263WIpbFgK9FXWcxy OvT7CgSBLxzUluHjD4e8U8 Si4EJRVfNQItfPDgVmW0H6 RkPjwvdHI+ LB22EJDtOT51gKEzcKHla4 dbgVf4YqRmQKXyRYK0kJsy AOcpa9BmJCGzK99hbSUvp7 J6DUEjkGnh qANiAeOjvWV0uO7dHIgalx uiw9pcewjdCmsxr7qvpi66 yQ15T16hKEmlJNQdCMAmYZ UiIHZhbGln kb4kzY3dWz1+ATZdnXD7gD G6xM6fTkYgAsH6WWygM245 HoNynTUvHvhzl0nsy0lnhE v5EwQwZCSi vrUpyNiiGLN5x7WsIe97V4 9sIHdpZHRoPSIyMCUiIHZh jOllzb4kaD8qTz8+PC9jb2 etwg66zV29 dHI+YUQpSSY5kZmkMRhhRC BqxO4sBGctCmM5DYMeJaYb pN79xNHkHTriVc9xpSrmvB hnIY3nQKCe gqytk110TrWme1oxXVUydP TgFLquILL0E80uo3P0FHQi QMRjINX2wZP9pT1jsUdech ogbGVmdDsg gvOqxPsfGSapYYxoO505AD RvvUuaBwJghWCsS6rhoaAW JE2iXeslkJE+NUKmIBE4yN xlPSdwYWRk zO0tHUWeO8n5OeNlIdX2VF vsG2KhpnE9TZNooVEmLLQg iJSAlE6wstbmz0tdezpxBy AwMDAwMDt0 VSe0ASQoxWhbAzAyCWY4Ht N4YZE8hHHurZ0ppTybejck bN1jOkl+RklOOjwvdGQ+PH HkZVR3hVdj AHfrDLZtzF1vWNCpX5r1Ft HgBsF5ZHfaQ4QrrtR9TNWk xGSyKJSgiHWJvA0dkrwpo8 xvcjogIzAw PJSgOPy8DYx5EPOblZedVv BxWKJ4SyL4JPJ0zJUzsT5c hSzeoumqwB1jSqz+TVJOOj wvdGQ+PHRk YRC6uTrnYPpkSEEsdM8kIY KbA0j2OgSnJjT0SFrtN1Pi bqN0QBBqdCXdJBZjlJENyL 6mqdcjh1se ocogTmQcQRVmCTp6ANn7NZ TxsCeeXdWtECK7RlQ8YRE4 dNAcaR4hkSymueojhB6pFu c+SQC6NMO9 SB67VQ09Y8IwLetmpFXfpY U+PHRhYmxlIHdpZHRoPScx WHZlPdOzwDefAQ1sPf5oGR VyLWNvbGxh cHNl (more content not included)... Normal [facility] C Urineon 06-13-2022 Bacteria identified Cx Nom [...] Locations R1: This test was performed at: [facility], [address] [place] [address], [phone] , [place], Normal [facility] Comment on above: Performed By: #### 2 [id number] #### [facility] [address] [place] [id number] Ambulatory Visit Summaryon 0 06-10-2022 Ambulatory Visit Summary MARTIN HAGEN :1950 Visit Date:06/10/2022 Ambulatory Visit Instructions Your Diagnosis Microhematuria Adrenal mass Renal cyst Urinary retention with incomplete bladder emptying Tests Performed Urnls Dip Stick Auto w/o Microscopy POC 29090 Your Care Team Attending Physician - Alec XIE, Jacqui Nieves Primary Care Physician - SUNIL XIE, SHAWN Pearson This Is Your Medications List cephalexin (Keflex [...] AM EST [facility]: [facility] [address] [place] [address]- \.br\ You Need to Schedule the Following Appointments\.br \ Follow Up with Alec XIE, Jacqui Nieves, CARLY, URO When: \.br\ Where:\.br\ Medications\.br\ What How Much When Why Instructions\.br \ New dexamethasone (dexamethasone 1 mg oral tablet) 1 Tablets By Mouth Once Adrenal mass take at 11pm. complete cortisol level at 8am. Pickup at [facility]\.br\ Unchanged cephalexin (Keflex 500 mg Cap) 1 [...] if questions or concerns \.br\ Pharmacy Information\.br\ [facility]: [address] [place], [place] [id number] [phone]\.br\ Test Results\.br\ Urnls Dip Stick Auto w/o Microscopy POC 76579 (06/10/2022)\.br \ Bilirubin Urine Dipstick - Negative\.br\ Blood Urine Dipstick - 3+ Large\.br\ Glucose Urine Dipstick - Negative\.br\ Ketones Urine Dipstick - Negative\.br\ Leukocytes Urine Dipstick - 3+ Large\.br\ Nitrite Urine Dipstick - Negative\.br\ Protein Urine Dipstick - 2+ (100 mg/dl)\.br\ Specific [place] Urine Dipstick - 1.020\.br\ Urine Appearance Urine [...] instructions at home:\.br\ Medicines\.br\ ? \.br\ Take vavj-bus-ffcmijr and prescription medicines only as told by [...] ? \.br\ Avoid caffeine, tea, and Quesada [facility] Patient Educationon 06-10-19 Patient Education Urology [...] these instructions at home: Medicines ? Take jsld-tbz-kxqandw and prescription medicines only as told by [...] the blood stops without treatment. ? Take vhzg-sfu-qoqhxly and prescription medicines only as told by your health care provider. ? Drink enough fluid to keep your urine clear or pale yellow. This information is not intended to replace advice given to you by your health care provider. Make sure you discuss any questions you have with your health care provider. Document Released: 04/19/2006 Document Revised: 09/13/2019 Document Reviewed: 05/22/2017 [employer] Patient Education ? 2019 [employer] Normal [facility] URINALYSISOrdered By: Iwona suárez on 06-10-2022 Bacteria LM Ql (Urine sed) 2+ /HPF Invalid Interpretation Code Trace/HPF [facility] UA Auto SS Bilirubin Ql (U) Negative (06/10/22 12:20 PM) Normal Negative [facility] UA Auto SS Clarity (U) Cloudy *ABN* (06/10/22 12:20 PM) Invalid Interpretation Code Clear [facility] UA Auto SS Color (U) Yellow (06/10/22 12:20 PM) Normal Yellow [facility] UA Auto SS Crystals LM Ql (Urine sed) Present (06/10/22 12:20 PM) Normal [facility] UA Auto SS Epithelial cells.squamous LM.HPF (Urine sed) [#/Area] 3-4 /HPF Normal 0-2/HPF [facility] UA Auto SS Glucose Test strip (U) [Mass/Vol] Negative (06/10/22 12:20 PM) Normal Negative [facility] UA Auto SS Hemoglobin Ql (U) 3+ *ABN* (06/10/22 12:20 PM) Invalid Interpretation Code Negative [facility] UA Auto SS Ketones (U) [Mass/Vol] Negative (06/10/22 12:20 PM) Normal Negative [facility] Auto SS [place].plasma/Lithiu m.RBC (Bld) [Mass ratio] 4-20 /HPF Normal 0-3/HPF [facility] UA Auto SS Mucus Ql (Urine sed) Trace (06/10/22 12:20 PM) Normal [facility] Auto SS Nitrite Ql (U) Negative (06/10/22 12:20 PM) Normal Negative [facility] Auto SS pH (U) 5.5 *NA* (06/10/22 12:20 PM) Invalid Interpretation Code 5.0 - 9.0 [facility] Auto SS Protein (U) [Mass/Vol] 1+ *ABN* (06/10/22 12:20 PM) Invalid Interpretation Code Negative [facility] UA Auto SS Specific gravity (U) [Rel density] 1.020 *NA* (06/10/22 12:20 PM) Invalid Interpretation Code 1.005 - 1.030 [facility] Auto SS UA Spec Desc Random Urine (06/10/22 12:20 PM) Normal [facility] UA Auto SS Urobilinogen Qn (U) 0.8247844 {Mack'U}/dL Normal 0.0 - 1.0 EU/dL [facility] Auto SS WBC Auto Ql (U) 2+ *ABN* (06/10/22 12:20 PM) Invalid Interpretation Code Negative FT UA Auto SS WBC LM.HPF (Urine sed) [#/Area] /[HPF] Invalid Interpretation Code 0-5/HPF [facility] UA Auto SS Urinalysison 06-10-2022 Bacteria LM Ql (Urine sed) 2+ /HPF Abnormal Trace [facility] Comment on above: Performed By: #### 1 [id number] ####[facility] [address] [place] [address] Bilirubin Ql (U) Negative Normal Negative [facility] Comment on above: Performed By: #### 1 [id number] ####[facility] [address] [place] [address] Clarity (U) CLOUDY Abnormal Clear [facility] Comment on above: Performed By: #### 1 [id number] ####[facility] [address] [place] [address] Color (U) YELLOW Normal Yellow [facility] Comment on above: Performed By: #### 1 [id number] ####[facility] [address] [facility] [place] [address] Crystals LM Ql (Urine sed) Present Normal [facility] Comment on above: Performed By: #### 1 [id number] ####[facility] [address] [facility] [place] [address] Epithelial cells.squamous LM.HPF (Urine sed) [#/Area] 3-4 Normal 0-2 [facility] Comment on above: Performed By: #### 1 [id number] ####[facility] [address] [facility] [place] [address] Glucose Test strip (U) [Mass/Vol] Negative Normal Negative [facility] Comment on above: Performed By: #### 1 [id number] ####[facility] [address] [facility] [place] [address] Hemoglobin Ql (U) 3+ Abnormal Negative [facility] Comment on above: Performed By: #### 1 [id number] ####[facility] [address] [place] [address] Ketones (U) [Mass/Vol] Negative Normal Negative [facility] Comment on above: Performed By: #### 1 [id number] ####[facility] [address] [place] [address] [place].plasma/Lithiu m.RBC (Bld) [Mass ratio] 4-20 Normal 0-3 [facility] Comment on above: Performed By: #### 1 [id number] ####[facility] [address] [place] [address] Mucus Ql (Urine sed) TRACE Normal [facility] Comment on above: Performed By: #### 1 [id number] ####[facility] [address] [place] [address] Nitrite Ql (U) Negative Normal Negative [facility] Comment on above: Performed By: #### 1 [id number] ####[facility] [address] [facility] [place] [address] pH (U) 5.5 [pH] Invalid Interpretation Code 5.0-9.0 [facility] Comment on above: Performed By: #### 1 [id number] ####[address] [address] Protein (U) [Mass/Vol] 1+ Abnormal Negative [facility] Comment on above: Performed By: #### 1 [id number] ####[place] [id number] Specific gravity (U) [Rel density] 1.020 Invalid Interpretation Code 1.005-1.030 [facility] Comment on above: Performed By: #### 1 [id number] ####[place] [id number] Type of Urine collection method Random Urine Normal [facility] Comment on above: Performed By: #### 1 [id number] ####[place] [id number] Urobilinogen Qn (U) 0.2 {Mack'U}/dL Normal 0.0-1.0 [facility] Comment on above: Performed By: #### 1 [id number] ####[address] [address] WBC Auto Ql (U) 2+ Abnormal Negative [facility] Comment on above: Performed By: #### 1 [id number] ####[place] [id number] WBC LM.HPF (Urine sed) [#/Area] /[HPF] Abnormal 0-5 [facility] Comment on above: Performed By: #### 1 [id number] ####[address] [address] Urology Office/Clinic Noteon 06-10-2022 Urology Office/Clinic Note [...] and history for this patient from Dr. Kaab. I have reviewed and verified the staff [...] in uncontroll (more content not included)... Normal [facility] Comment on above: Result Comment: Elec tronically Signed By: Alec XIE, Jacqui Nieves\.br\Date and Time Signed: 06/10/22 17:35 EST\.br\Electronically Co-Signed By: Marissa Denson\.br\Date and Time Co-Signed: 06/10/22 10:57 EST Lab Reportson 05-07-2022 Lab Reports [id number] 0CD:127 Normal [facility] CT ABD/PELV W CONon 05-06-19 CT ABD/PELV W CON Normal [facility] RAD - CT Reporton 05-06-2022 RAD - CT Report [id number] 0CD:127 Normal [facility] CREATININEon 05-05-2022 Creatinine [Mass/Vol] 1.49 mg/dL Critically high 0.55-1.02 [facility] Comment on above: Performed By: #### C BENITA ####[facility] Nyxqcjogcs4[address] [place] [address]Dr. Ivette Hernandez EGFR-AF IVORIAN 42 mL/min/1.73m2 Critically low >=[address] [facility] Comment on above: Performed By: #### C BENITA ####[facility] Vwidaantrk5380 [place] [address]DrJesse Hernandez EGFR-NON AF IVORIAN 34 mL/min/1.73m2 Critically low >=60 [facility] Comment on above: Performed By: #### C BENITA ####[facility] Svenisjdcc5944 [place] [address]DrJesse Hernandez PROF CHEM 8 (BAS METB)on Anion gap [Moles/Vol] 12.6 mmol/L Normal Th [facility] Comment on above: Performed By: #### B MP ####[facility] Wprnwbnpif8[address] [place], [place] [address]Dr. Cherjun David Calcium [Mass/Vol] 8.0 mg/dL Critically low 8.5-10.1 Th [facility] Comment on above: Performed By: #### B MP ####[facility] Ocxcbkeuij6[address] [place], [place] [address]Dr. Ivette Hernandez Chloride [Moles/Vol] 103 mmol/L Normal 98-107 [facility] Comment on above: Performed By: #### B MP ####[facility] Nuzkeeauaq8810[address] [place], [place] [address]Dr. Ivette Hernandez CO2 [Moles/Vol] 28.7 mmol/L Normal 21.0-32.0 [facility] Comment on above: Performed By: #### B MP ####[facility] Shcxovmyvh5079[address] [place], [place] [address]Dr. Ivette Hernandez Creatinine [Mass/Vol] 1.54 mg/dL Critically high 0.55-1.02 [facility] Comment on above: Performed By: #### B MP ####[facility] Labqhlvkuy045[address] [place], [place] [address]Dr. Ivette Hernandez EGFR-AF IVORIAN 40 mL/min/1.73m2 Critically low >=60 [facility] Comment on above: Performed By: #### B MP ####[facility] Deakoukqhs7557[address] [place], [place] [address]Dr. Ivette Hernandez EGFR-NON AF IVORIAN 33 mL/min/1.73m2 Critically low >=60 [facility] Comment on above: Performed By: #### B MP ####[facility] Iedlqfevxf0823[address] [place], [place] [address]Dr. Ivette Hernandez Glucose [Mass/Vol] 126 mg/dL Critically high 74-106 [facility] Comment on above: Performed By: #### B MP ####[facility] Wbvnfhhfou3160[address] [place], [place] [address]Dr. Ivette Hernandez Potassium [Moles/Vol] 3.3 mmol/L Critically low 3.5-5.1 [facility] Comment on above: Performed By: #### B MP ####[facility] Afiuvaykpv007[address] [place], [place] [address]Dr. Ivette Hernandez Sodium [Moles/Vol] 141 mmol/L Normal 136-[address] [facility] Comment on above: Performed By: #### B MP ####[facility] Xgfmjfqfln0027[address] [place], [place] [address]Dr. Ivette Hernandez Urea nitrogen [Mass/Vol] 21.0 mg/dL Critically high 7.0-18.[address] [facility] Comment on above: Performed By: #### B MP ####[facility] Trvqxocols115[address] [place], [place] [address]Dr. Ivette Hernandez Urea nitrogen/Creatinine [Mass ratio] 13.6 mg/mg Normal [facility] Comment on above: Performed By: #### B MP ####[facility] Oupkeuzbkb8577[address] [place], [place] [address]Dr. Ivette Hernandez CBC AUTO DIFFon 04-13-2022 BASO # 0.0 103/ul Normal 0.0-0.1 [facility] Comment on above: Performed By: #### C BC ####[facility] Rmmzwywubc1755[address] [place], [place] [address]Dr. Ivette Hernandez Basophils/100 WBC (Bld) 0.3 % Normal 0.2-2.[address] [facility] Comment on above: Performed By: #### C BC ####[facility] Grsuxtvxxw5465[address] [place], [place] [address]Dr. Ivette Hernandez EO # 0.3 103/ul Normal 0.0-0.[address] [facility] Comment on above: Performed By: #### C BC ####[facility] Qzjboyvupr7234[address] [place], [place] [address]Dr. Ivette Hernandez Eosinophils/100 WBC (Bld) 4.3 % Normal 0.9-7.[address] [facility] Comment on above: Performed By: #### C BC ####[facility] Qwobsgnpks7270[address] [place], [place] [address]Dr. Ivette Hernandez Erythrocyte distribution width (RBC) [Ratio] 14.2 % Normal 11.0-15.0 [facility] Comment on above: Performed By: #### C BC ####[facility] Znhrfhdgwv1578 [place] [address]Dr. Ivette Hernandez Hematocrit (Bld) [Volume fraction] 26.2 % Critically low 36.0-48.[address] [facility] Comment on above: Performed By: #### C BC ####[facility] Majwfezcdg087[address] [place], [place] [address]Dr. Ivette Hernandez Hemoglobin (Bld) [Mass/Vol] 8.0 g/dL Critically low 12.0-16.[address] [facility] Comment on above: Performed By: #### C BC ####[facility] Jggejxdrfr6749[address] [place], [place] [address]Dr. Ivette Hernandez IG # 0.03 10e3/ul Normal 0.00-0.03 [facility] Comment on above: Performed By: #### C BC ####[facility] Wmzhotcybk1968[address] [place], [place] [address]Dr. Ivette Hernandez IG % 0.5 % Normal 0.0-0.5 [facility] Comment on above: Performed By: #### C BC ####[facility] Yumntzvjzk7019[address] [place], [place] [address]DrJesse Ivette Hernandez LYMPH # 2.2 103/ul Normal 1.2-3.[address] [facility] Comment on above: Performed By: #### C BC ####[facility] Edfbyrtdtb3200[address] [place], [place] [address]DrJesse Ivette Hernandez Lymphocytes/100 WBC (Bld) 35.5 % Normal 20.5-60.[address] [facility] Comment on above: Performed By: #### C BC ####[facility] Ygpzmydfua495[address] [place], [place] [address]DrJesse Ivette David MANUAL DIFF REQ NO Normal [facility] Comment on above: Performed By: #### C BC ####[facility] Nznbpvedbs7986[address] [place], [place] [address]Dr. Cherjun Hernandez MCH (RBC) [Entitic mass] 28.0 pg Normal 26.7-34.[address] [facility] Comment on above: Performed By: #### C BC ####[facility] Soxwrcudcq96[address] [place] [address]Dr. Ivette Hernandez MCHC (RBC) [Mass/Vol] 30.5 g/dL Normal 29.9-35.[address] [facility] Comment on above: Performed By: #### C BC ####[facility] Qfzuqtmzpn0199[address] [place], [place] [address]DrJesse Hernandez MCV (RBC) [Entitic vol] 91.6 fL Normal 81.0-99.[address] [facility] Comment on above: Performed By: #### C BC ####[facility] Rdwojqgcnd4928[address] [place], [place] [address]Dr. Ivette Hernandez MONO # 0.5 103/ul Normal 0.3-0.[address] [facility] Comment on above: Performed By: #### C BC ####[facility] Ypgddlydaz3398[address] [place], [place] [address]Dr. Ivette Hernandez Monocytes/100 WBC (Bld) 8.2 % Normal 1.7-12.[address] [facility] Comment on above: Performed By: #### C BC ####[facility] Coijrspcrh433[address] [place], [place] [address]Dr. Ivette Hernandez NEUT # 3.2 103/ul Normal 1.4-6.[address] [facility] Comment on above: Performed By: #### C BC ####[facility] Hgrzahgbzp56[address] [place], [place] [address]Dr. Ivette Hernandez Neutrophils/100 WBC (Bld) 51.2 % Normal 43.0-75.[address] [facility] Comment on above: Performed By: #### C BC ####[facility] Voslglkhoa93[address] [place], [place] [address]Dr. Ivette Hernandez Platelet mean volume (Bld) [Entitic vol] 9.8 fL Normal 9.5-13.[address] [facility] Comment on above: Performed By: #### C BC ####[facility] Cpnmegvfsg2466[address] [place], [place] [address]Dr. Ivette Hernandez PLT 168 103/ul Normal 150-450 [facility] Comment on above: Performed By: #### C BC ####[facility] Dellkmfrtb7680 [place] [address]DrJesse Kwonjun David RBC 2.86 106/ul Critically low 4.20-5.40 [facility] Comment on above: Performed By: #### C BC ####[facility] Wnesjvufyv2972 [place] [address]DrJesse Hernandez WBC 6.2 103/ul Normal 4.0-11.0 [facility] Comment on above: Performed By: #### C BC ####[facility] Cbsxebtzss8046 [place] [address]DrJesse Hernandez Office Visiton 04-13-2022 Follow-up visit [id number] Maria G Hagen 1950 F Date Provider Department Center 04/13/2022 MADI MITCHELL [facility] Family History Problem Relation Age of Onset Stroke Mother Hypertension Mother Heart attack Father Hypertension Sister Heart attack Sister Heart attack Brother Family Status - Relation Status Age at Mother Father Sister Brother Level of Service:14971 [place] OFFICE/OUTPATIENT ESTABLISHED MOD MDM 30-39 MIN Reason for Visit and Comments: Congestive Heart Failure [127] Atrial Fibrillation [80] Normal [facility] POINT OF CARE GLUCOSEon 04-02 Glucose [Mass/Vol] 140 mg/dL Critically high 74-106 T [facility] Comment on above: Performed By: #### P OCGLUC ####[facility] Chageuaqmw06[address] [place] [address]DrJesse Hernandez PROF CHEM 8 (BAS METB)on Anion gap [Moles/Vol] 7.9 mmol/L Normal [facility] Comment on above: Performed By: #### B MP ####[facility] Gnrwtuvutu6760 [place] [address]DrJesse Hernandez Calcium [Mass/Vol] 7.9 mg/dL Critically low 8.5-10.1 Th [facility] Comment on above: Performed By: #### B MP ####[facility] Dxcrqscyfa0578 [place] [id number]. Ivette Hernandez Chloride [Moles/Vol] 106 mmol/L Normal 98-[address] [facility] Comment on above: Performed By: #### B MP ####[facility] Uogaewltib2329 [place] [address]Dr. Ivette Hernandez CO2 [Moles/Vol] 32.0 mmol/L Normal 21.0-32.[address] [facility] Comment on above: Performed By: #### B MP ####[facility] Ajlrhriwqc7718 [place] [address]Dr. Ivette Hernandez Creatinine [Mass/Vol] 1.67 mg/dL Critically high 0.55-1.[address] [facility] Comment on above: Performed By: #### B MP ####[facility] Htmczfoowl969[address] [place], [place] [address]Dr. Cherjun David EGFR-AF IVORIAN 36 mL/min/1.73m2 Critically low >=[address] [facility] Comment on above: Performed By: #### B MP ####[facility] Grkzwsabts[address] [place], [place] [address]Dr. Ivette Hernandez EGFR-NON AF IVORIAN 30 mL/min/1.73m2 Critically low >=[address] [facility] Comment on above: Performed By: #### B MP ####[facility] Ysnypjwepz1835[address] [place], [place] [address]Dr. Ivette Hernandez Glucose [Mass/Vol] 91 mg/dL Normal 74-[address] [facility] Comment on above: Performed By: #### B MP ####[facility] Pdihphxdat378[address] [place], [place] [address]Dr. Ivette Hernandez Potassium [Moles/Vol] 3.9 mmol/L Normal 3.5-5.[address] [facility] Comment on above: Performed By: #### B MP ####[facility] Rdqkmqngfb5611[address] [place], [place] [address]Dr. Ivette Hernandez Sodium [Moles/Vol] 142 mmol/L Normal 136-[address] [facility] Comment on above: Performed By: #### B MP ####[facility] Ysgszjvfsr8794 [place] [id number]. Cherjun Hernandez Urea nitrogen [Mass/Vol] 26.0 mg/dL Critically high 7.0-18.[address] [facility] Comment on above: Performed By: #### B MP ####[facility] Dgbcjxcygh3214[address] [place], [place] [address]Dr. Ivette Hernandez Urea nitrogen/Creatinine [Mass ratio] 15.6 mg/mg Normal [facility] Comment on above: Performed By: #### B MP ####[facility] Gvlcbsaesp5033[address] [place], [place] [address]Dr. Ivette Hernandez CBC AUTO DIFFon 04-12-2022 BASO # 0.0 103/ul Normal 0.0-0.1 [facility] Comment on above: Performed By: #### C BC ####[facility] Mmxfvrkjmr6507[address] [place], [place] [address]Dr. Ivette Hernandez Basophils/100 WBC (Bld) 0.5 % Normal 0.2-2.[address] [facility] Comment on above: Performed By: #### C BC ####[facility] Dnbnxescda500[address] [place], [place] [address]Dr. Ivette Hernandez EO # 0.3 103/ul Normal 0.0-0.[address] [facility] Comment on above: Performed By: #### C BC ####[facility] Vkcketvhdi670[address] [place], [place] [address]Dr. Ivette Hernandez Eosinophils/100 WBC (Bld) 4.4 % Normal 0.9-7.[address] [facility] Comment on above: Performed By: #### C BC ####[facility] Jupdwotsci0498[address] [place], [place] [address]Dr. Ivette Hernandez Erythrocyte distribution width (RBC) [Ratio] 14.2 % Normal 11.0-15.[address] [facility] Comment on above: Performed By: #### C BC ####[facility] Gborvtnjam0520[address] [place], [place] [address]Dr. Ivette Hernandez Hematocrit (Bld) [Volume fraction] 25.9 % Critically low 36.0-48.[address] [facility] Comment on above: Performed By: #### C BC ####[facility] Ymunktlkfm0353 [place] [id number]. Ivette Hernandez Hemoglobin (Bld) [Mass/Vol] 8.0 g/dL Critically low 12.0-16.0 [facility] Comment on above: Performed By: #### C BC ####[facility] Atnwbycauw9822 [place] [phone]. Ivette Hernandez IG # 0.03 10e3/ul Normal 0.00-0.03 [facility] Comment on above: Performed By: #### C BC ####[facility] Dyrooipeox3374 [place] [address]Dr. Ivette Hernandez IG % 0.5 % Normal 0.0-0.5 [facility] Comment on above: Performed By: #### C BC ####[facility] Nfqucuaqth36[address] [place], [place] [address]Dr. Ivette Hernandez LYMPH # 2.1 103/ul Normal 1.2-3.[address] [facility] Comment on above: Performed By: #### C BC ####[facility] Wrhxuxtkxr1050 [place] [address]Dr. Ivette Hernandez Lymphocytes/100 WBC (Bld) 35.0 % Normal 20.5-60.0 [facility] Comment on above: Performed By: #### C BC ####[facility] Kzbbyjhrjm4435 [place] [address]Dr. Ivette Hernandez MANUAL DIFF REQ NO Normal [facility] Comment on above: Performed By: #### C BC ####[facility] Gmoteayahu0849 [place] [id number]. Ivtete Hernandez MCH (RBC) [Entitic mass] 28.3 pg Normal 26.7-34.[address] [facility] Comment on above: Performed By: #### C BC ####[facility] Koxspvlwyr6071 [place] [id number]. Ivette Hernandez MCHC (RBC) [Mass/Vol] 30.9 g/dL Normal 29.9-35.[address] [facility] Comment on above: Performed By: #### C BC ####[facility] Dmcdxkkcjb1664 [place] [phone]. Ivette Hernandez MCV (RBC) [Entitic vol] 91.5 fL Normal 81.0-99.0 [facility] Comment on above: Performed By: #### C BC ####[facility] Gooinogfub0164 [place] [phone]. Ivette Hernandez MONO # 0.4 103/ul Normal 0.3-0.[address] [facility] Comment on above: Performed By: #### C BC ####[facility] Njmpmkywxs120[address] [place], [place] [address]Dr. Ivette Hernandez Monocytes/100 WBC (Bld) 7.1 % Normal 1.7-12.[address] [facility] Comment on above: Performed By: #### C BC ####[facility] Pbydkrfsmg819[address] [place], [place] [address]Dr. Ivette Hernandez NEUT # 3.1 103/ul Normal 1.4-6.[address] [facility] Comment on above: Performed By: #### C BC ####[facility] Vzaxztnfxd06[address] [place], [place] [address]Dr. Ivette Hernandez Neutrophils/100 WBC (Bld) 52.5 % Normal 43.0-75.[address] [facility] Comment on above: Performed By: #### C BC ####[facility] Amrgkcyhql7158[address] [place], [place] [address]Dr. Ivette Hernandez Platelet mean volume (Bld) [Entitic vol] 9.6 fL Normal 9.5-13.[address] [facility] Comment on above: Performed By: #### C BC ####[facility] Vxohkxujnz4[address] [place], [place] [address]Dr. Ivette Hernandez PLT 163 103/ul Normal 150-[address] [facility] Comment on above: Performed By: #### C BC ####[facility] Gocgcyincl187[address] [place], [place] [address]Dr. Ivette Hernandez RBC 2.83 106/ul Critically low 4.20-5.[address] [facility] Comment on above: Performed By: #### C BC ####[facility] Llhspuinhl3593 [place] [id number]. Ivette Hernandez WBC 5.9 103/ul Normal 4.0-11.0 [facility] Comment on above: Performed By: #### C BC ####[facility] Qtvjobxwck1723 [place] [phone]. Ivette Hernandez CULTURE URINEon 04-12-2022 CULTURE URINE Normal [facility] Comment on above: Performed By: #### U RCX ####[facility] Owsejetaee1908[address] [place], [place] [address]Dr. Ivette David POINT OF CARE GLUCOSEon 04-02 Glucose [Mass/Vol] 106 mg/dL Normal 74-106 [facility] Comment on above: Performed By: #### P OCGLUC ####[facility] Auxghtzity11[address] [place], [place] [address]Dr. Ivette Hernandez Glucose [Mass/Vol] 212 mg/dL Critically high 74-106 [facility] Comment on above: Performed By: #### P OCGLUC ####[facility] Qosjjanplr7266 [place] [address]Dr. Ivette Hernandez Glucose [Mass/Vol] 136 mg/dL Critically high 74-106 [facility] Comment on above: Performed By: #### P OCGLUC ####[facility] Vrugufmvnw7996 [place] [address]Dr. Ivette Hernandez PROF CHEM 8 (BAS METB)on Anion gap [Moles/Vol] 9.6 mmol/L Normal [facility] Comment on above: Performed By: #### B MP ####[facility] Gdvhpabhof184[address] [place], [place] [address]Dr. Ivette Hernandez Calcium [Mass/Vol] 7.5 mg/dL Critically low 8.5-10.1 Th [facility] Comment on above: Performed By: #### B MP ####[facility] Noiipqnqjp778[address] [place], [place] [address]Dr. Ivette Hernandez Chloride [Moles/Vol] 106 mmol/L Normal 98-107 [facility] Comment on above: Performed By: #### B MP ####[facility] Jpzmoyugkn7773 [place] [id number]. Ivette Hernandez CO2 [Moles/Vol] 29.3 mmol/L Normal 21.0-32.0 [facility] Comment on above: Performed By: #### B MP ####[facility] Szxupqrche5268 [place] [address]Dr. Ivette Hernandez Creatinine [Mass/Vol] 1.48 mg/dL Critically high 0.55-1.[address] [facility] Comment on above: Performed By: #### B MP ####[facility] Iewglxbbsf0864 [place] [id number]. Ivette David EGFR-AF IVORIAN 42 mL/min/1.73m2 Critically low >=[address] [facility] Comment on above: Performed By: #### B MP ####[facility] Lmzuggmjvv488[address] [place], [place] [address]Dr. Ivette David EGFR-NON AF IVORIAN 35 mL/min/1.73m2 Critically low >=[address] [facility] Comment on above: Performed By: #### B MP ####[facility] Zqemciipxu12[address] [place], [place] [address]Dr. Ivette David Glucose [Mass/Vol] 87 mg/dL Normal 74-[address] [facility] Comment on above: Performed By: #### B MP ####[facility] Jajobdrfdn396[address] [place], [place] [address]Dr. Ivette David Potassium [Moles/Vol] 3.9 mmol/L Normal 3.5-5.[address] [facility] Comment on above: Performed By: #### B MP ####[facility] Wotrtlnzax0821 [place] [address]Dr. Ivette Hernandez Sodium [Moles/Vol] 141 mmol/L Normal 136-[address] [facility] Comment on above: Performed By: #### B MP ####[facility] Gokomxexmw8126[address] [place], [place] [address]Dr. Ivette Hernandez Urea nitrogen [Mass/Vol] 24.0 mg/dL Critically high 7.0-18.[address] [facility] Comment on above: Performed By: #### B MP ####[facility] Wywryzznre8352 [place] [phone]. Ivette Hernandez Urea nitrogen/Creatinine [Mass ratio] 16.2 mg/mg Normal [facility] Comment on above: Performed By: #### B MP ####[facility] Nwugaejaiz0026 [place] [phone]. Ivette Hernandez CBC AUTO DIFFon 04-11-2022 BASO # 0.0 103/ul Normal 0.0-0.1 [facility] Comment on above: Performed By: #### C BC ####[facility] Zeafkdckhk22[address] [place], [place] [address]Dr. Ivette David Basophils/100 WBC (Bld) 0.3 % Normal 0.2-2.0 [facility] Comment on above: Performed By: #### C BC ####[facility] Ehazfmrwpy36[address] [place], [place] [address]Dr. Ivette Hernandez EO # 0.2 103/ul Normal 0.0-0.7 [facility] Comment on above: Performed By: #### C BC ####[facility] Nsmdhfdttb4[address] [place], [place] [address]Dr. Ivette Hernandez Eosinophils/100 WBC (Bld) 2.8 % Normal 0.9-7.0 [facility] Comment on above: Performed By: #### C BC ####[facility] Ikrlwrwumj4[address] [place], [place] [address]Dr. Ivette Hernandez Erythrocyte distribution width (RBC) [Ratio] 14.4 % Normal 11.0-15.[address] [facility] Comment on above: Performed By: #### C BC ####[facility] Xnvbzjbrys02[address] [place], [place] [address]Dr. Ivette Hernandez Hematocrit (Bld) [Volume fraction] 24.9 % Critically low 36.0-48.0 [facility] Comment on above: Performed By: #### C BC ####[facility] Qrxryneete628[address] [place], [place] [address]Dr. Ivette Hernandez Hemoglobin (Bld) [Mass/Vol] 7.7 g/dL Critically low 12.0-16.0 [facility] Comment on above: Performed By: #### C BC ####[facility] [address] [place] [address]DrJesse Hernandez IG # 0.02 10e3/ul Normal 0.00-0.03 [facility] Comment on above: Performed By: #### C BC ####[facility] Wyizvynhww5668 [place] [address]DrJesse Hernandez IG % 0.3 % Normal 0.0-0.5 [facility] Comment on above: Performed By: #### C BC ####[facility] Ltggruoezr7[address] [place], [place] [address]DrJesse Hernandez LYMPH # 1.9 103/ul Normal 1.2-3.[address] [facility] Comment on above: Performed By: #### C BC ####[facility] Bgjysjpncz6[address] [place], [place] [address]DrJesse Hernandez Lymphocytes/100 WBC (Bld) 32.7 % Normal 20.5-60.0 [facility] Comment on above: Performed By: #### C BC ####[facility] Prectoyxpv5[address] [place], [place] [address]DrJesse Hernandez MANUAL DIFF REQ NO Normal [facility] Comment on above: Performed By: #### C BC ####[facility] Utquztpnti9715[address] [place], [place] [address]DrJesse Hernandez MCH (RBC) [Entitic mass] 28.3 pg Normal 26.7-34.0 [facility] Comment on above: Performed By: #### C BC ####[facility] Khzqtqwnnl8158[address] [place], [place] [address]DrJesse Hernandez MCHC (RBC) [Mass/Vol] 30.9 g/dL Normal 29.9-35.[address] [facility] Comment on above: Performed By: #### C BC ####[facility] Phnsmidoeq54[address] [place] [address]DrJesse Hernandez MCV (RBC) [Entitic vol] 91.5 fL Normal 81.0-99.0 [facility] Comment on above: Performed By: #### C BC ####[facility] Quowrhjije[address] [place] [id number]. Ivette Hernandez MONO # 0.5 103/ul Normal 0.3-0.[address] [facility] Comment on above: Performed By: #### C BC ####[facility] Mbgzlskgwo73[address] [place] [id number]. Ivette Hernandez Monocytes/100 WBC (Bld) 8.2 % Normal 1.7-12.0 [facility] Comment on above: Performed By: #### C BC ####[facility] Ksdefdizvj8[address] [place] [address]Dr. Ivette Hernandez NEUT # 3.2 103/ul Normal 1.4-6.[address] [facility] Comment on above: Performed By: #### C BC ####[facility] Jscvydawih94[address] [place] [address]Dr. Ivette Hernandez Neutrophils/100 WBC (Bld) 55.7 % Normal 43.0-75.0 [facility] Comment on above: Performed By: #### C BC ####[facility] Akvgozgsgv727[address] [place], [place] [address]Dr. Ivette Hernandez Platelet mean volume (Bld) [Entitic vol] 9.7 fL Normal 9.5-13.5 [facility] Comment on above: Performed By: #### C BC ####[facility] Znbygbzwck8695 [place] [address]Dr. Ivette Hernandez PLT 139 103/ul Critically low 150-[address] [facility] Comment on above: Performed By: #### C BC ####[facility] Acxyorpktu6172 [place] [id number]. Ivette Hernandez RBC 2.72 106/ul Critically low 4.20-5.[address] [facility] Comment on above: Performed By: #### C BC ####[facility] Okzgkkhvul7334 [place] [id number]. Ivette Hernandez WBC 5.8 103/ul Normal 4.0-11.[address] [facility] Comment on above: Performed By: #### C BC ####[facility] Lvigrynpsd29[address] [place] [address]Dr. Ivette Hernandez IRON AND TIBCon 04-11-2022 % SATURATION 10.4 % Normal [facility] Comment on above: Performed By: #### B 12FOL, FETIBC ####[facility] Wqcctxgisj[address] [place] [address]Dr. Ivette Hernandez Iron [Mass/Vol] 19.0 ug/dL Critically low 50.0-170.0 [facility] Comment on above: Performed By: #### B 12FOL, FETIBC ####[facility] Pjvglkthkd56[address] [place] [address]Dr. Ivette Hernandez TIBC DIRECT 182.0 ug/dL Critically low 250.0-450.0 [facility] Comment on above: Performed By: #### B 12FOL, FETIBC ####[facility] Onbtijylap44[address] [place] [address]Dr. Ivette David POINT OF CARE GLUCOSEon 04-02 Glucose [Mass/Vol] 124 mg/dL Critically high 74-106 [facility] Comment on above: Performed By: #### P OCGLUC ####[facility] Gmlwppmfsu628[address] [place], [place] [address]Dr. Ivette Hernandez Glucose [Mass/Vol] 128 mg/dL Critically high 74-106 [facility] Comment on above: Performed By: #### P OCGLUC ####[facility] Rwpqaonqla1755 [place] [address]Dr. Ivette Hernandez Glucose [Mass/Vol] 144 mg/dL Critically high 74-106 [facility] Comment on above: Performed By: #### P OCGLUC ####[facility] Fjtkabtmjo1432[address] [place], [place] [address]Dr. Cherjun Hernandez PROF CHEM 8 (BAS METB)on Anion gap [Moles/Vol] 9.7 mmol/L Normal [facility] Comment on above: Performed By: #### B MP ####[facility] Iparnxesas[address] [place], [place] [id number]. Ivette Hernandez Calcium [Mass/Vol] 6.9 mg/dL Critically low 8.5-10.[address] [facility] Comment on above: Performed By: #### B MP ####[facility] Njyqpjbepm88[address] [place] [address]Dr. Ivette Hernandez Chloride [Moles/Vol] 109 mmol/L Critically high 98-[address] [facility] Comment on above: Performed By: #### B MP ####[facility] Mxbumofkdt4640 [place] [address]Dr. Ivette Hernandez CO2 [Moles/Vol] 29.2 mmol/L Normal 21.0-32.[address] [facility] Comment on above: Performed By: #### B MP ####[facility] Wlmfzdixdp3859[address] [place], [place] [address]Dr. Ivette Hernandez Creatinine [Mass/Vol] 1.41 mg/dL Critically high 0.55-1.02 [facility] Comment on above: Performed By: #### B MP ####[facility] Yyuzbllxub260[address] [place], [place] [address]Dr. Ivette Hernandez EGFR-AF IVORIAN 44 mL/min/1.73m2 Critically low >=[address] [facility] Comment on above: Performed By: #### B MP ####[facility] Cntsmpbgvd1710[address] [place], [place] [address]Dr. Ivette Hernandez EGFR-NON AF IVORIAN 37 mL/min/1.73m2 Critically low >=[address] [facility] Comment on above: Performed By: #### B MP ####[facility] Wmylzayrmx01[address] [place], [place] [address]Dr. Ivette Hernandez Glucose [Mass/Vol] 95 mg/dL Normal 74-[address] [facility] Comment on above: Performed By: #### B MP ####[facility] Sabnomjdfr8146[address] [place], [place] [address]Dr. Ivette Hernandez Potassium [Moles/Vol] 3.9 mmol/L Normal 3.5-5.1 [facility] Comment on above: Performed By: #### B MP ####[facility] Lumvawaqbi23[address] [place] [address]Dr. Ivette Hernandez Sodium [Moles/Vol] 144 mmol/L Normal 136-[address] [facility] Comment on above: Performed By: #### B MP ####[facility] Jxlhzrdbmu8949 [place] [address]Dr. Ivette Hernandez Urea nitrogen [Mass/Vol] 25.0 mg/dL Critically high 7.0-18.[address] [facility] Comment on above: Performed By: #### B MP ####[facility] Lfdplaonvt7548 [place] [address]Dr. Ivette Hernandez Urea nitrogen/Creatinine [Mass ratio] 17.7 mg/mg Normal [facility] Comment on above: Performed By: #### B MP ####[facility] Iojngshyew9045[address] [place], [place] [address]Dr. Ivette Hernandez VIT B12 AND FOLATEon 022 Cobalamin (Vitamin B12) [Mass/Vol] 769.0 pg/mL Normal 193.0-986.0 [facility] Comment on above: Performed By: #### B 12FOL, FETIBC ####[facility] Fvyoyoujbi73[address] [place] [address]Dr. Ivette Hernandez FOLATE 22.60 ng/mL Normal 8.60-58.90 [facility] Comment on above: Performed By: #### B 12FOL, FETIBC ####[facility] Rzeoptpqyp5469 [place] [address]Dr. Ivette Hernandez CARDIAC CADNACE 3-6on 2 CK [Catalytic activity/Vol] 38 U/L Normal 26-[address] [facility] Comment on above: Performed By: #### C MREP ####[facility] Lycrlzpmqm4172 [place] [address]Dr. Ivette Hernandez CK.MB [Mass/Vol] 0.75 ng/mL Normal <=3.[address] [facility] Comment on above: Performed By: #### C MREP ####[facility] Guymwggcbl9605 [place] [address]Dr. Ivette Hernandez HSTROP 11.9 pg/mL Normal 4.0-51.3 [facility] Comment on above: Result Comment: CUT- OFF POINTS HAVE BEEN ESTABLISHED BASED ON THE FOURTH UNIVERSAL DEFINITIONS OF MYOCARDIALINFARCTION. THE UPPER REFERENCE LIMIT (URL) OF TROPONIN, DEFINED THE 99TH PERCENTILE OFcTnI DISTRIBUTION IN A REFERENCE POPULATION, HAS BEEN CONFIRMED THE DECISION THRESHOLDFOR [place] DIAGNOSIS. Performed By: #### C MREP ####[facility] Hthpyhzcvs260[address] [place] [address]Dr. Ivette Hernandez CK [Catalytic activity/Vol] 38 U/L Normal 26-[address] [facility] Comment on above: Performed By: #### C MREP ####[facility] Fnvzkufxex6113 [place] [address]Dr. Ivette Hernandez CK.MB [Mass/Vol] 0.11 ng/mL Normal <=3.60 [facility] Comment on above: Performed By: #### C MREP ####[facility] Fkbjvdbyrp09[address] [place], [place] [address]Dr. Ivette Hernandez HSTROP 11.5 pg/mL Normal 4.0-51.[address] [facility] Comment on above: Result Comment: CUT- OFF POINTS HAVE BEEN ESTABLISHED BASED ON THE FOURTH UNIVERSAL DEFINITIONS OF MYOCARDIALINFARCTION. THE UPPER REFERENCE LIMIT (URL) OF TROPONIN, DEFINED THE 99TH PERCENTILE OFcTnI DISTRIBUTION IN A REFERENCE POPULATION, HAS BEEN CONFIRMED THE DECISION THRESHOLDFOR [place] DIAGNOSIS. Performed By: #### C MREP ####[facility] Csnyvzwzrz9151 [place] [address]Dr. Ivette Hernandez CBC AUTO DIFFon 04-10-2022 BASO # 0.0 103/ul Normal 0.0-0.1 [facility] Comment on above: Performed By: #### C BC ####[facility] Ajzjgdhyqb2249 [place] [address]Dr. Ivette Hernandez Basophils/100 WBC (Bld) 0.3 % Normal 0.2-2.[address] [facility] Comment on above: Performed By: #### C BC ####[facility] Aivwfinmhe5328 [place] [address]Dr. Ivette Hernandez EO # 0.1 103/ul Normal 0.0-0.7 [facility] Comment on above: Performed By: #### C BC ####[facility] Kcxssvugvk7013 [place] [address]Dr. Ivette Hernandez Eosinophils/100 WBC (Bld) 0.9 % Normal 0.9-7.0 [facility] Comment on above: Performed By: #### C BC ####[facility] Zhzrbattkm2840[address] [place], [place] [address]Dr. Ivette David Erythrocyte distribution width (RBC) [Ratio] 14.5 % Normal 11.0-15.[address] [facility] Comment on above: Performed By: #### C BC ####[facility] Lomshvetqx214[address] [place], [place] [address]Dr. Ivette Hernandez Hematocrit (Bld) [Volume fraction] 26.1 % Critically low 36.0-48.0 [facility] Comment on above: Performed By: #### C BC ####[facility] Xnexnuyenq2533[address] [place], [place] [address]Dr. Ivette Hernandez Hemoglobin (Bld) [Mass/Vol] 8.0 g/dL Critically low 12.0-16.[address] [facility] Comment on above: Performed By: #### C BC ####[facility] Uzwypzbuyg85[address] [place], [place] [address]Dr. Ivette Hernandez IG # 0.03 10e3/ul Normal 0.00-0.[address] [facility] Comment on above: Performed By: #### C BC ####[facility] Mcbzydmwtr8516[address] [place], [place] [address]Dr. Ivette Hernandez IG % 0.4 % Normal 0.0-0.[address] [facility] Comment on above: Performed By: #### C BC ####[facility] Jskzdrtyho4025[address] [place], [place] [address]Dr. Ivette Hernandez LYMPH # 2.2 103/ul Normal 1.2-3.[address] [facility] Comment on above: Performed By: #### C BC ####[facility] Uolxoyfbbe6130[address] [place], [place] [address]Dr. Ivette Hernandez Lymphocytes/100 WBC (Bld) 29.3 % Normal 20.5-60.0 [facility] Comment on above: Performed By: #### C BC ####[facility] Tqcbgapwfu1772 [place] [address]DrJesse Hernandez MANUAL DIFF REQ NO Normal [facility] Comment on above: Performed By: #### C BC ####[facility] Xhtqpxaztx6107 [place] [address]Dr. Ivette Hernandez MCH (RBC) [Entitic mass] 28.4 pg Normal 26.7-34.0 [facility] Comment on above: Performed By: #### C BC ####[facility] Rlnoyqaatg300[address] [place], [place] [address]Dr. Ivette Hernandez MCHC (RBC) [Mass/Vol] 30.7 g/dL Normal 29.9-35.[address] [facility] Comment on above: Performed By: #### C BC ####[facility] Ngwwewkhln5659[address] [place], [place] [address]DrJesse Hernandez MCV (RBC) [Entitic vol] 92.6 fL Normal 81.0-99.[address] [facility] Comment on above: Performed By: #### C BC ####[facility] Kyqplhivxl9187[address] [place], [place] [address]DrJesse Hernandez MONO # 0.6 103/ul Normal 0.3-0.8 [facility] Comment on above: Performed By: #### C BC ####[facility] Ysquacfexi558[address] [place], [place] [address]DrJesse Hernandez Monocytes/100 WBC (Bld) 8.7 % Normal 1.7-12.[address] [facility] Comment on above: Performed By: #### C BC ####[facility] Zfemakfhal9[address] [place], [place] [address]DrJesse Hernandez NEUT # 4.5 103/ul Normal 1.4-6.[address] [facility] Comment on above: Performed By: #### C BC ####[facility] Hepemljhdg3670[address] [place], [place] [address]DrJesse Hernandez Neutrophils/100 WBC (Bld) 60.4 % Normal 43.0-75.0 [facility] Comment on above: Performed By: #### C BC ####[facility] Rrzjccivsq1260 [place] [address]Dr. Ivette Hernandez Platelet mean volume (Bld) [Entitic vol] 9.8 fL Normal 9.5-13.5 [facility] Comment on above: Performed By: #### C BC ####[facility] Ealjugjjlr5604 [place] [address]Dr. Ivette Hernandez PLT 139 103/ul Critically low 150-450 [facility] Comment on above: Performed By: #### C BC ####[facility] Txmekhauxg5812 [place] [address]Dr. Ivette Hernandez RBC 2.82 106/ul Critically low 4.20-5.40 [facility] Comment on above: Performed By: #### C BC ####[facility] Hkpwepquaw16[address] [place], [place] [address]Dr. Ivette Hernandez WBC 7.4 103/ul Normal 4.0-11.0 [facility] Comment on above: Performed By: #### C BC ####[facility] Wxntpjehkc8973 [place] [address]Dr. Ivette Hernandez CULTURE BLOODon 04-10-2022 Microscopic examination of blood, culture Culture Observations: NO GROWTH AT 5 DAYS. Normal [facility] Comment on above: Performed By: #### B LDCX2 ####[facility] Akvrzggvgb9508[address] [place], [place] [address]Dr. Ivette Hernandez Microscopic examination of blood, culture Culture Observations: NO GROWTH AT 5 DAYS. Normal [facility] Comment on above: Performed By: #### B LDCX1 ####[facility] Ueggexfcef9797[address] [place], [place] [address]Dr. Ivette Hernandez Covid-19 PCR (CVDTB)on SARS-CoV-2 (COVID-19) RNA MARRY+probe Ql (Unsp spec) Not detected Normal NOT DETECTED [facility] Comment on above: Result Comment: When [...] for this test is supported by the Automatic [employer] Operator of Health and Human Service's declaration that [...] longer be used). Performed By: #### C [facility]LA[facility] ####[facility] Johpsqvtct9797[address] [place], [place] [address]Dr. Ivette Hernandez ER URINE PROFILEon 2 Bilirubin Ql (U) Negative Normal NEGATIVE [facility] Comment on above: Performed By: #### SONNY MCKOY ####[facility] Octrkhysqm7525[address] [place], [place] [address]Dr. Ivette Hernandez Clarity (U) CLEAR Normal CLEAR [facility] Comment on above: Performed By: #### FIDENCIO MCKOYRO ####[facility] Tagxiginmw8896[address] [place], [place] [address]Dr. Ivette Hernandez Color (U) YELLOW Normal YELLOW [facility] Comment on above: Performed By: #### FIDENCIO MCKOYRO ####[facility] Imoaukstwb554[address] [place], [place] [address]Dr. Ivette Hernandez ERUAHD A micrscopic examination will be performed if indicated. Normal [facility] Comment on above: Performed By: #### FIDENCIO MCKOYRO ####[facility] Zlkhljzsfo216[address] [place], [place] [address]Dr. Ivette Hernandez Glucose Ql (U) Negative Normal NEGATIVE [facility] Comment on above: Performed By: #### FIDENCIO MCKOYRO ####[facility] Zzedfesaba6840[address] [place], [place] [address]Dr. Ivette Hernandez Hemoglobin Ql (U) MODERATE Abnormal NEGATIVE [facility] Comment on above: Performed By: #### FIDENCIO MCKOYRO ####[facility] Btasxgnxom054[address] [place], [place] [address]Dr. Ivette Hernandez Ketones Ql (U) TRACE Abnormal NEGATIVE [facility] Comment on above: Performed By: #### FILIPE MCKOYICRO ####[facility] Vwvyulgadz3124[address] [place], [place] [address]Dr. Cherjun David LEUKOCYTES MODERATE Abnormal NEGATIVE [facility] Comment on above: Performed By: #### FILIPE MCKOYICRO ####[facility] Klijkxdovk5449[address] [place], [place] [address]Dr. Ivette Hernandez Nitrite Ql (U) Negative Normal NEGATIVE [facility] Comment on above: Performed By: #### FIDENCIO MCKOYRO ####[facility] Nmekanwjez434[address] [place], [place] [address]Dr. Ivette Hernandez pH (U) 7.0 [pH] Normal 5-[address] [facility] Comment on above: Performed By: #### FILIPE MCKOYICRO ####[facility] Gxcfzeuvlr2998[address] [place], [place] [address]Dr. Ivette Hernandez SPEC GRAVITY 1.020 Normal 1.005-<=1.[address] [facility] Comment on above: Performed By: #### FILIPE MCKOYICRO ####[facility] Hsudztaxey5078[address] [place], [place] [address]Dr. Ivette Hernandez UA PROTEIN >300 Abnormal NEGATIVE/ TRACE [facility] Comment on above: Performed By: #### FILIPE MCKOYICRO ####[facility] Zmwkdzmynq3774[address] [place], [place] [address]Dr. Ivette Hernandez UR MICRO IND INDICATED Normal [facility] Comment on above: Performed By: #### Ata RONDON UMICRO ####[facility] Jybsijmrjk3338[address] [place], [place] [address]Dr. Ivette Hernandez Urobilinogen Qn (U) 0.2 {Mack'U}/dL Normal 0.2 - 1. 0 [facility] Comment on above: Performed By: #### E SONNY RONDON ####[facility] Dvershyeip8717 [place] [address]Dr. Ivette David POINT OF CARE GLUCOSEon 12 Glucose [Mass/Vol] 164 mg/dL Critically high 74-106 [facility] Comment on above: Performed By: #### P OCGLUC ####[facility] Lpuflvwkwz2365[address] [place], [place] [address]Dr. Ivette Hernandez Glucose [Mass/Vol] 123 mg/dL Critically high 74-106 [facility] Comment on above: Performed By: #### P OCGLUC ####[facility] Rszcwfcmmn9015[address] [place], [place] [address]Dr. Ivette Hernandez Glucose [Mass/Vol] 115 mg/dL Critically high 74-106 [facility] Comment on above: Performed By: #### P OCGLUC ####[facility] Fejnqfctnl997[address] [place], [place] [address]Dr. Ivette Hernandez PROF CHEM 8 (BAS METB)on Anion gap [Moles/Vol] 11.8 mmol/L Normal [facility] Comment on above: Performed By: #### B MP ####[facility] Oedngukrjo667[address] [place], [place] [address]Dr. Ivette Hernandez Calcium [Mass/Vol] 6.5 mg/dL Critically low 8.5-10.1 [facility] Comment on above: Performed By: #### B MP ####[facility] Rxipbapoui643[address] [place], [place] [address]Dr. Ivette Hernandez Chloride [Moles/Vol] 108 mmol/L Critically high 98-107 [facility] Comment on above: Performed By: #### B MP ####[facility] Nlsdzkmvdk8298[address] [place], [place] [address]Dr. Ivette Hernandez CO2 [Moles/Vol] 29.2 mmol/L Normal 21.0-32.0 [facility] Comment on above: Performed By: #### B MP ####[facility] Pwozvipzaz9603 [place] [address]Dr. Ivette Hernandez Creatinine [Mass/Vol] 1.61 mg/dL Critically high 0.55-1.02 [facility] Comment on above: Performed By: #### B MP ####[facility] Hwbbcjqfwp32[address] [place], [place] [address]Dr. Ivette Hernandez EGFR-AF IVORIAN 38 mL/min/1.73m2 Critically low >=[address] [facility] Comment on above: Performed By: #### B MP ####[facility] Facgwujsam5035[address] [place], [place] [address]Dr. Ivette Hernandez EGFR-NON AF IVORIAN 31 mL/min/1.73m2 Critically low >=[address] [facility] Comment on above: Performed By: #### B MP ####[facility] Stkhexnzgs0338[address] [place], [place] [address]Dr. Ivette Hernandez Glucose [Mass/Vol] 107 mg/dL Critically high 74-106 [facility] Comment on above: Performed By: #### B MP ####[facility] Tygqjtwhvz9[address] [place], [place] [address]Dr. Ivette Hernandez Potassium [Moles/Vol] 4.0 mmol/L Normal 3.5-5.[address] [facility] Comment on above: Performed By: #### B MP ####[facility] Qqafczzspk069[address] [place], [place] [address]Dr. Ivette Hernandez Sodium [Moles/Vol] 145 mmol/L Normal 136-[address] [facility] Comment on above: Performed By: #### B MP ####[facility] Xvwsuufpfm[address] [place], [place] [address]Dr. Ivette Hernandez Urea nitrogen [Mass/Vol] 23.0 mg/dL Critically high 7.0-18.0 [facility] Comment on above: Performed By: #### B MP ####[facility] Rhrbverifq52[address] [place], [place] [address]Dr. Ivette Hernandez Urea nitrogen/Creatinine [Mass ratio] 14.3 mg/mg Normal [facility] Comment on above: Performed By: #### B MP ####[facility] Onpiswjvuk[address] [place] [address]Dr. Ivette Hernandez URINE MICROSCOPIC ONLYon BACTERIA MODERATE Abnormal NONE SEEN The [facility] Comment on above: Performed By: #### SONNY MCKOY ####[facility] Nkqgfnhidz8[address] [place], [place] [address]Dr. Ivette Hernandez Bacteria identified Cx Nom (U) INDICATED Normal [facility] Comment on above: Performed By: #### FIDENCIO MCKOYRO ####[facility] Dgklhwwzun66[address] [place], [place] [address]Dr. Ivette Hernandez CAST NONE SEEN Normal NONE SEEN [facility] Comment on above: Performed By: #### SONNY MCKOY ####[facility] Xeczmnmtxl[address] [place], [place] [address]Dr. Ivette Hernandez Crystals LM Nom (Urine sed) NONE SEEN Normal NONE SEEN The [facility] Comment on above: Performed By: #### SONNY MCKOY ####[facility] Zrafkizuyy9[address] [place], [place] [address]Dr. Ivette Hernandez Epithelial cells LM Ql (Urine sed) RARE Normal NONE SEEN /RARE [facility] Comment on above: Performed By: #### SONNY MCKOY ####[facility] Fhasylvoqm9213[address] [place], [place] [address]Dr. Ivette Hernandez MUCOUS NONE SEEN Normal NONE SEEN The [facility] Comment on above: Performed By: #### SONNY MCKOY ####[facility] Yaggvxrbmp9784[address] [place], [place] [address]Dr. Ivette Hernandez RBC NONE SEEN Abnormal 0-[address] [facility] Comment on above: Performed By: #### FIDENCIO MCKOYRO ####[facility] Gktvwvfaha89[address] [place], [place] [address]Dr. Ivette Hernandez WBC 20-50 Abnormal NONE SEEN The [facility] Comment on above: Performed By: #### FIDENCIO MCKOYRO ####[facility] Mplqzgkavl8[address] [place], [place] [address]Dr. Ivette Hernandez XR CHEST 1 Von 04-10-2022 XR CHEST 1 V Normal [facility] CARDIAC CANDACE ADMITon 022 CK [Catalytic activity/Vol] 37 U/L Normal 26-[address] [facility] Comment on above: Performed By: #### MYRNA ORTIZ ####[facility] Godiogpfzw[address] [place] [address]Dr. Cherjun Hernandez CK.MB [Mass/Vol] 0.14 ng/mL Normal <=3.[address] [facility] Comment on above: Performed By: #### MYRNA ORTIZ ####[facility] Kdstureogq18[address] [place] [address]Dr. Cherjun Hernandez HSTROP 11.0 pg/mL Normal 4.0-51.[address] [facility] Comment on above: Result Comment: CUT- OFF POINTS HAVE BEEN ESTABLISHED BASED ON THE FOURTH UNIVERSAL DEFINITIONS OF MYOCARDIALINFARCTION. THE UPPER REFERENCE LIMIT (URL) OF TROPONIN, DEFINED THE 99TH PERCENTILE OFcTnI DISTRIBUTION IN A REFERENCE POPULATION, HAS BEEN CONFIRMED THE DECISION THRESHOLDFOR [place] DIAGNOSIS. Performed By: #### MYRNA ORTIZ ####[facility] Licgvjdxli60[address] [place] [address]Dr. Ivette Hernandez CARMITA 1 ng/mL Critically low 9-[address] [facility] Comment on above: Performed By: #### MYRNA ORTIZ ####[facility] Zyzfhfrltx02[address] [place] [address]Dr. Ivette Hernandez CBC AUTO DIFFon 04-09-2022 BASO # 0.0 103/ul Normal 0.0-0.[address] [facility] Comment on above: Performed By: #### C BC ####[facility] Qviovnxgxz7239 [place] [address]Dr. Ivette Hernandez Basophils/100 WBC (Bld) 0.2 % Normal 0.2-2.[address] [facility] Comment on above: Performed By: #### C BC ####[facility] Rjveaopnpj15[address] [place] [address]Dr. Ivette Hernandez EO # 0.0 103/ul Normal 0.0-0.[address] [facility] Comment on above: Performed By: #### C BC ####[facility] Bazervnrrg26[address] [place] [address]Dr. Ivette Hernandez Eosinophils/100 WBC (Bld) 0.5 % Critically low 0.9-7.[address] [facility] Comment on above: Performed By: #### C BC ####[facility] Dgslhdqhwl3554[address] [place], [place] [address]Dr. Ivette Hernandez Erythrocyte distribution width (RBC) [Ratio] 14.6 % Normal 11.0-15.[address] [facility] Comment on above: Performed By: #### C BC ####[facility] Gjgsvgekpd9900[address] [place], [place] [address]Dr. Ivette Hernandez Hematocrit (Bld) [Volume fraction] 27.0 % Critically low 36.0-48.[address] [facility] Comment on above: Performed By: #### C BC ####[facility] Flyfxxtzwn1768[address] [place], [place] [address]Dr. Ivette Hernandez Hemoglobin (Bld) [Mass/Vol] 8.5 g/dL Critically low 12.0-16.[address] [facility] Comment on above: Performed By: #### C BC ####[facility] Wkuwjtynyb6076[address] [place], [place] [address]Dr. Ivette Hernandez IG # 0.02 10e3/ul Normal 0.00-0.[address] [facility] Comment on above: Performed By: #### C BC ####[facility] Enpjxeydqn9920[address] [place], [place] [address]Dr. Ivette Hernandez IG % 0.2 % Normal 0.0-0.[address] [facility] Comment on above: Performed By: #### C BC ####[facility] Ywlhakoebh[address] [place], [place] [address]Dr. Ivette Hernandez LYMPH # 1.4 103/ul Normal 1.2-3.[address] [facility] Comment on above: Performed By: #### C BC ####[facility] Dplvrkcjnh5412[address] [place], [place] [address]Dr. Ivette Hernandez Lymphocytes/100 WBC (Bld) 17.2 % Critically low 20.5-60.[address] [facility] Comment on above: Performed By: #### C BC ####[facility] Vfehnstjoj[address] [place] [id number]. Ivette Hernandez MANUAL DIFF REQ NO Normal [facility] Comment on above: Performed By: #### C BC ####[facility] Mrqkokzxsv7611 [place] [id number]. Ivette Hernandez MCH (RBC) [Entitic mass] 28.7 pg Normal 26.7-34.[address] [facility] Comment on above: Performed By: #### C BC ####[facility] Hpxreagmme49[address] [place] [address]Dr. Ivette Hernandez MCHC (RBC) [Mass/Vol] 31.5 g/dL Normal 29.9-35.[address] [facility] Comment on above: Performed By: #### C BC ####[facility] Upckpdwmrp78[address] [place] [address]Dr. Ivette Hernandez MCV (RBC) [Entitic vol] 91.2 fL Normal 81.0-99.[address] [facility] Comment on above: Performed By: #### C BC ####[facility] Gdazjbdwmz9966 [place] [id number]. Ivette Hernandez MONO # 0.5 103/ul Normal 0.3-0.[address] [facility] Comment on above: Performed By: #### C BC ####[facility] Seycyqgpod8585 [place] [address]Dr. Ivette David Monocytes/100 WBC (Bld) 6.5 % Normal 1.7-12.[address] [facility] Comment on above: Performed By: #### C BC ####[facility] Lhcznhhyrm9203 [place] [id number]. Ivette Hernandez NEUT # 6.3 103/ul Normal 1.4-6.[address] [facility] Comment on above: Performed By: #### C BC ####[facility] Aebnmgldva6719 [place] [address]Dr. Ivette Hernandez Neutrophils/100 WBC (Bld) 75.4 % Critically high 43.0-75.[address] [facility] Comment on above: Performed By: #### C BC ####[facility] Oiiptsipln6737 [place] [id number]. Ivette Hernandez Platelet mean volume (Bld) [Entitic vol] 9.8 fL Normal 9.5-13.[address] [facility] Comment on above: Performed By: #### C BC ####[facility] Afdfrnctkc0579 [place] [address]Dr. Ivette Hernandez PLT 158 103/ul Normal 150-[address] [facility] Comment on above: Performed By: #### C BC ####[facility] Kkvspdyebc2675[address] [place], [place] [address]Dr. Ivette Hernandez RBC 2.96 106/ul Critically low 4.20-5.40 [facility] Comment on above: Performed By: #### C BC ####[facility] Ccsscppyyl6647 [place] [address]Dr. Ivette Hernandez WBC 8.4 103/ul Normal 4.0-11.0 [facility] Comment on above: Performed By: #### C BC ####[facility] Yxycotabwh9[address] [place], [place] [address]Dr. Ivette Hernandez LACTATE/LACTIC ACIDon 2021 Lactate [Moles/Vol] 0.9 mmol/L Normal 0.4-1.9 [facility] Comment on above: Performed By: #### L ACT ####[facility] Ipqehuviqp172[address] [place], [place] [address]Dr. Ivette Hernandez PROF CHEM 8 (BAS METB)on Anion gap [Moles/Vol] 8.8 mmol/L Normal [facility] Comment on above: Performed By: #### C MADM, BMP ####[facility] Obaoclfnnx74[address] [place] [address]Dr. Ivette Hernandez Calcium [Mass/Vol] 6.9 mg/dL Critically low 8.5-10.[address] [facility] Comment on above: Performed By: #### C MADM, BMP ####[facility] Swygjkzqdg7060 [place] [address]Dr. Ivette Hernandez Chloride [Moles/Vol] 105 mmol/L Normal 98-[address] [facility] Comment on above: Performed By: #### C RODDY, BMP ####[facility] Ybunjoodvh7963 [place] [address]Dr. Ivette Hernandez CO2 [Moles/Vol] 28.1 mmol/L Normal 21.0-32.0 [facility] Comment on above: Performed By: #### C RODDY, BMP ####[facility] Rrymmvbkje1079 [place] [address]Dr. Ivette Hernandez Creatinine [Mass/Vol] 1.77 mg/dL Critically high 0.55-1.02 [facility] Comment on above: Performed By: #### C RODDY, BMP ####[facility] Rxnypjptdz5174[address] [place], [place] [address]Dr. Ivette Hernandez EGFR-AF IVORIAN 34 mL/min/1.73m2 Critically low >=60 [facility] Comment on above: Performed By: #### C RODDY, BMP ####[facility] Wmfamrklel1740[address] [place], [place] [address]Dr. Ivette Hernandez EGFR-NON AF IVORIAN 28 mL/min/1.73m2 Critically low >=60 [facility] Comment on above: Performed By: #### C RODDY, BMP ####[facility] Zjkjdwiawd4334[address] [place], [place] [address]Dr. Ivette Hernandez Glucose [Mass/Vol] 130 mg/dL Critically high 74-106 T [facility] Comment on above: Performed By: #### C RODDY, BMP ####[facility] Aanuhyoiuu168368 [address] [place], [place] [address]Dr. Ivette Hernandez Potassium [Moles/Vol] 3.9 mmol/L Normal 3.5-5.[address] [facility] Comment on above: Performed By: #### C RODDY, BMP ####[facility] Frmzsmexkj3420[address] [place], [place] [address]Dr. Ivette Hernandez Sodium [Moles/Vol] 138 mmol/L Normal 136-[address] [facility] Comment on above: Performed By: #### C RODDY, BMP ####[facility] Jmobsmbicg4220[address] [place], [place] [address]Dr. Ivette Hernandez Urea nitrogen [Mass/Vol] 25.0 mg/dL Critically high 7.0-18.[address] [facility] Comment on above: Performed By: #### C RODDY, BMP ####[facility] Kathzejilp0014[address] [place], [place] [address]Dr. Ivette Hernandez Urea nitrogen/Creatinine [Mass ratio] 14.1 mg/mg Normal [facility] Comment on above: Performed By: #### C RODDY, BMP ####[facility] Tpesglohfb6817[address] [place], [place] [address]Dr. Ivette Hernandez AMMONIAon 03-10-2022 Ammonia (P) [Moles/Vol] 12 umol/L Normal [facility] Comment on above: Performed By: #### A MM ####[facility] Oysiumteqi6076[address] [place], [place] [address]Dr. Ivette Hernandez BNPon 03-10-2022 Natriuretic peptide B (Bld) [Mass/Vol] 9132.0 pg/mL Critically high <=900.[address] [facility] Comment on above: Performed By: #### M G, CMP, PHOS, BNP ####[facility] Ditcfnxems[address] [place], [place] [address]Dr. Ivette Hernandez CBC AUTO DIFFon 03-10-2022 BASO # 0.0 103/ul Normal 0.0-0.[address] [facility] Comment on above: Performed By: #### C BC ####[facility] Lpncxmmaec2085[address] [place], [place] [address]Dr. Ivette David Basophils/100 WBC (Bld) 0.3 % Normal 0.2-2.[address] [facility] Comment on above: Performed By: #### C BC ####[facility] Zwkvqoahro198168 [address] [place], [place] [address]Dr. Ivette David EO # 0.3 103/ul Normal 0.0-0.[address] [facility] Comment on above: Performed By: #### C BC ####[facility] Llwviuxjzm0738[address] [place], [place] [address]Dr. Ivette David Eosinophils/100 WBC (Bld) 3.2 % Normal 0.9-7.0 [facility] Comment on above: Performed By: #### C BC ####[facility] Jdoxbltmpb6820[address] [place], [place] [address]Dr. Ivette Hernandez Erythrocyte distribution width (RBC) [Ratio] 14.3 % Normal 11.0-15.0 [facility] Comment on above: Performed By: #### C BC ####[facility] Vwpkxyznwu115168 [address] [place], [place] [address]Dr. Ivette Hernandez Hematocrit (Bld) [Volume fraction] 25.5 % Critically low 36.0-48.0 [facility] Comment on above: Performed By: #### C BC ####[facility] Jnptifpvag8901[address] [place], [place] [address]Dr. Ivette Hernandez Hemoglobin (Bld) [Mass/Vol] 8.0 g/dL Critically low 12.0-16.0 [facility] Comment on above: Performed By: #### C BC ####[facility] Hqljxipxjk0936[address] [place], [place] [address]Dr. Ivette Hernandez IG # 0.05 10e3/ul Critically high 0.00-0.03 [facility] Comment on above: Performed By: #### C BC ####[facility] Idszsquyvj239[address] [place], [place] [address]Dr. Ivette Hernandez IG % 0.6 % Critically high 0.0-0.5 [facility] Comment on above: Performed By: #### C BC ####[facility] Hfyjqufgoa0613[address] [place], [place] [address]Dr. Ivette Hernandez LYMPH # 1.9 103/ul Normal 1.2-3.[address] [facility] Comment on above: Performed By: #### C BC ####[facility] Cywehcihwe079[address] [place], [place] [address]Dr. Ivette Hernandez Lymphocytes/100 WBC (Bld) 20.8 % Normal 20.5-60.[address] [facility] Comment on above: Performed By: #### C BC ####[facility] Lqtlosegrx7269[address] [place], [place] [address]Dr. Ivette Hernandez MANUAL DIFF REQ NO Normal [facility] Comment on above: Performed By: #### C BC ####[facility] Kckwtsalvh7286 [place] [address]DrJesse Cherjun Hernandez MCH (RBC) [Entitic mass] 28.7 pg Normal 26.7-34.0 [facility] Comment on above: Performed By: #### C BC ####[facility] Tlcvbtdfxb0109 [place] [address]DrJesse Hernandez MCHC (RBC) [Mass/Vol] 31.4 g/dL Normal 29.9-35.2 [facility] Comment on above: Performed By: #### C BC ####[facility] Oklhfzhlto9290[address] [place], [place] [address]DrJesse Hernandez MCV (RBC) [Entitic vol] 91.4 fL Normal 81.0-99.0 [facility] Comment on above: Performed By: #### C BC ####[facility] Ylimjshqzn6017[address] [place], [place] [address]DrJesse Hernandez MONO # 0.5 103/ul Normal 0.3-0.8 [facility] Comment on above: Performed By: #### C BC ####[facility] Svfxoclesy2486[address] [place], [place] [address]DrJesse Hernandez Monocytes/100 WBC (Bld) 5.6 % Normal 1.7-12.0 [facility] Comment on above: Performed By: #### C BC ####[facility] Iakuezebxo467[address] [place], [place] [address]DrJesse Hernandez NEUT # 6.2 103/ul Normal 1.4-6.[address] [facility] Comment on above: Performed By: #### C BC ####[facility] Kdorzdbhcl099[address] [place], [place] [address]DrJesse Hernandez Neutrophils/100 WBC (Bld) 69.5 % Normal 43.0-75.[address] [facility] Comment on above: Performed By: #### C BC ####[facility] Qivziotfac9175[address] [place], [place] [address]DrJesse Hernandez Platelet mean volume (Bld) [Entitic vol] 9.3 fL Critically low 9.5-13.5 [facility] Comment on above: Performed By: #### C BC ####[facility] Stlhgugrzu2554 [place] [address]Dr. Ivette Hernandez PLT 213 103/ul Normal 150-450 [facility] Comment on above: Performed By: #### C BC ####[facility] Qlkhivwkod5516 [place] [address]Dr. Ivette Hernandez RBC 2.79 106/ul Critically low 4.20-5.40 [facility] Comment on above: Performed By: #### C BC ####[facility] Yldgaeiuuu2975[address] [place], [place] [address]Dr. Ivette Hernandez WBC 8.9 103/ul Normal 4.0-11.0 [facility] Comment on above: Performed By: #### C BC ####[facility] Dixhcamyzk967[address] [place], [place] [address]Dr. Ivette David MAGNESIUMon 03-10-2022 Magnesium [Mass/Vol] 1.9 mg/dL Normal 1.8-2.4 [facility] Comment on above: Performed By: #### M G, CMP, PHOS, BNP ####[facility] Tppabbpais6680[address] [place], [place] [address]Dr. Ivette Hernandez PHOSPHORUSon 03-10-2022 Phosphate [Mass/Vol] 3.8 mg/dL Normal 2.6-4.7 [facility] Comment on above: Performed By: #### M G, CMP, PHOS, BNP ####[facility] Xuemlawykl605[address] [place], [place] [address]Dr. Ivette Hernandez PROF 14(COMP METB)on 022 Albumin [Mass/Vol] 2.3 g/dL Critically low 3.4-5.[address] [facility] Comment on above: Performed By: #### M G, CMP, PHOS, BNP ####[facility] Ljceoviign119[address] [place], [place] [address]Dr. Ivette Hernandez Albumin/Globulin [Mass ratio] 0.6 {ratio} Normal [facility] Comment on above: Performed By: #### M G, CMP, PHOS, BNP ####[facility] Mlpdqrketx1064 [place] [address]Dr. Ivette Hernandez ALP [Catalytic activity/Vol] 64 U/L Normal 46-116 [facility] Comment on above: Performed By: #### M G, CMP, PHOS, BNP ####[facility] Ueqjthryvb6960 [place] [address]Dr. Ivette Hernandez ALT [Catalytic activity/Vol] 14 U/L Normal 14-59 [facility] Comment on above: Performed By: #### M G, CMP, PHOS, BNP ####[facility] Dozodepzzt999[address] [place], [place] [address]Dr. Ivette Hernandez Anion gap [Moles/Vol] 3.4 mmol/L Normal [facility] Comment on above: Performed By: #### M G, CMP, PHOS, BNP ####[facility] Ubmrydmubo6401[address] [place], [place] [address]Dr. Ivette Hernandez AST [Catalytic activity/Vol] 20 U/L Normal 15-37 [facility] Comment on above: Performed By: #### M G, CMP, PHOS, BNP ####[facility] Skhkjfunmp3480[address] [place], [place] [address]Dr. Ivette Hernandez Bilirubin [Mass/Vol] 0.3 mg/dL Normal 0.2-1.0 [facility] Comment on above: Performed By: #### M G, CMP, PHOS, BNP ####[facility] Uawglivtru3365[address] [place], [place] [address]Dr. Ivette Hernandez Calcium [Mass/Vol] 8.3 mg/dL Critically low 8.5-10.1 Th [facility] Comment on above: Performed By: #### M G, CMP, PHOS, BNP ####[facility] Jrxeyllhap018[address] [place], [place] [address]Dr. Ivette Hernandez Chloride [Moles/Vol] 100 mmol/L Normal 98-107 [facility] Comment on above: Performed By: #### M G, CMP, PHOS, BNP ####[facility] Vlegtdsiev9248 [place] [address]Dr. Ivette Hernandez CO2 [Moles/Vol] 38.3 mmol/L Critically high 21.0-32.0 [facility] Comment on above: Performed By: #### M G, CMP, PHOS, BNP ####[facility] Qwdkesicfx6571 [place] [address]Dr. Ivette Hernandez Creatinine [Mass/Vol] 1.50 mg/dL Critically high 0.55-1.02 [facility] Comment on above: Performed By: #### M G, CMP, PHOS, BNP ####[facility] Qvdbgdnlfz5038[address] [place], [place] [address]Dr. Ivette Hernandez EGFR-AF IVORIAN 41 mL/min/1.73m2 Critically low >=60 [facility] Comment on above: Performed By: #### M G, CMP, PHOS, BNP ####[facility] Zslmkalfwy744[address] [place], [place] [address]Dr. Ivette Hernandez EGFR-NON AF IVORIAN 34 mL/min/1.73m2 Critically low >=[address] [facility] Comment on above: Performed By: #### M G, CMP, PHOS, BNP ####[facility] Vuwalzinpe9738[address] [place], [place] [address]Dr. Ivette Hernandez Globulin (S) [Mass/Vol] 4.1 g/dL Normal [facility] Comment on above: Performed By: #### M G, CMP, PHOS, BNP ####[facility] Slrtpprppi0907[address] [place], [place] [address]Dr. Ivette Hernandez Glucose [Mass/Vol] 114 mg/dL Critically high 74-106 T [facility] Comment on above: Performed By: #### M G, CMP, PHOS, BNP ####[facility] Ixdyboljtu70[address] [place], [place] [address]Dr. Ivette Hernandez Potassium [Moles/Vol] 3.7 mmol/L Normal 3.5-5.1 [facility] Comment on above: Performed By: #### M G, CMP, PHOS, BNP ####[facility] Zqopugpfkl4613[address] [place], [place] [address]Dr. Ivette Hernandez Protein [Mass/Vol] 6.4 g/dL Normal 6.4-8.[address] [facility] Comment on above: Performed By: #### M G, CMP, PHOS, BNP ####[facility] Pvupzkkbrc4232 [place] [address]Dr. Ivette Hernandez Sodium [Moles/Vol] 138 mmol/L Normal 136-[address] [facility] Comment on above: Performed By: #### M G, CMP, PHOS, BNP ####[facility] Wqxakovdtr14[address] [place], [place] [address]Dr. Ivette Hernandez Urea nitrogen [Mass/Vol] 20.0 mg/dL Critically high 7.0-18.[address] [facility] Comment on above: Performed By: #### M G, CMP, PHOS, BNP ####[facility] Bzurojpjao[address] [place], [place] [address]Dr. Ivette Hernandez Urea nitrogen/Creatinine [Mass ratio] 13.3 mg/mg Normal [facility] Comment on above: Performed By: #### M G, CMP, PHOS, BNP ####[facility] Jdjpobgevo[address] [place], [place] [address]Dr. Ivette Hernandez AMMONIAon 03-09-2022 Ammonia (P) [Moles/Vol] 15 umol/L Normal 11-[address] [facility] Comment on above: Performed By: #### A MM ####[facility] Sozutwqldi[address] [place], [place] [address]Dr. Ivette Hernandez BNPon 03-09-2022 Natriuretic peptide B (Bld) [Mass/Vol] 41478.0 pg/mL Critically high <=900.[address] [facility] Comment on above: Performed By: #### B ENGLISH COMPOSITION INSTRUCTOR, PHOS, MG, CMP ####[facility] Edcekjbtaq[address] [place], [place] [address]Dr. Ivette Hernandez CBC AUTO DIFFon 03-09-2022 BASO # 0.0 103/ul Normal 0.0-0.[address] [facility] Comment on above: Performed By: #### C BC ####[facility] Fyqtzzzwxl[address] [place], [place] [address]Dr. Ivette Hernandez Basophils/100 WBC (Bld) 0.5 % Normal 0.2-2.[address] [facility] Comment on above: Performed By: #### C BC ####[facility] [address]bniewlfqa[address] [place] [address]Dr. Ivette Hernandez EO # 0.2 103/ul Normal 0.0-0.[address] [facility] Comment on above: Performed By: #### C BC ####[facility] Atcmlmmkho[address] [place] [address]Dr. Ivette Hernandez Eosinophils/100 WBC (Bld) 2.6 % Normal 0.9-7.[address] [facility] Comment on above: Performed By: #### C BC ####[facility] Ncbqgjaycl37[address] [place] [address]Dr. Ivette Hernandez Erythrocyte distribution width (RBC) [Ratio] 14.2 % Normal 11.0-15.[address] [facility] Comment on above: Performed By: #### C BC ####[facility] Durrhlssiy[address] [place] [address]Dr. Ivette Hernandez Hematocrit (Bld) [Volume fraction] 26.7 % Critically low 36.0-48.[address] [facility] Comment on above: Performed By: #### C BC ####[facility] Epiuoiqhez7[address] [place] [address]Dr. Ivette Hernandez Hemoglobin (Bld) [Mass/Vol] 8.3 g/dL Critically low 12.0-16.[address] [facility] Comment on above: Performed By: #### C BC ####[facility] Mqyzrthddr9[address] [place] [address]Dr. Ivette Hernandez IG # 0.05 10e3/ul Critically high 0.00-0.[address] [facility] Comment on above: Performed By: #### C BC ####[facility] Alejsqjqkn9[address] [place] [address]Dr. Ivette Hernandez IG % 0.7 % Critically high 0.0-0.[address] [facility] Comment on above: Performed By: #### C BC ####[facility] Yejankpmfl[address] [place] [id number]. Ivette David LYMPH # 1.4 103/ul Normal 1.2-3.[address] [facility] Comment on above: Performed By: #### C BC ####[facility] Yaxnrryahd7084 [place] [address]Dr. Ivette Hernandez Lymphocytes/100 WBC (Bld) 17.6 % Critically low 20.5-60.[address] [facility] Comment on above: Performed By: #### C BC ####[facility] Amnajweyqr4[address] [place] [address]Dr. Ivette David MANUAL DIFF REQ NO Normal [facility] Comment on above: Performed By: #### C BC ####[facility] Zgkidrcadz8465 [place] [address]Dr. Ivette David MCH (RBC) [Entitic mass] 28.6 pg Normal 26.7-34.[address] [facility] Comment on above: Performed By: #### C BC ####[facility] Nsaquwypps7[address] [place], [place] [address]Dr. Ivette Hernandez MCHC (RBC) [Mass/Vol] 31.1 g/dL Normal 29.9-35.[address] [facility] Comment on above: Performed By: #### C BC ####[facility] Uneeolycri4[address] [place] [address]Dr. Ivette David MCV (RBC) [Entitic vol] 92.1 fL Normal 81.0-99.[address] [facility] Comment on above: Performed By: #### C BC ####[facility] Gsribwdfpb2[address] [place] [address]Dr. Ivette David MONO # 0.5 103/ul Normal 0.3-0.[address] [facility] Comment on above: Performed By: #### C BC ####[facility] Vffhagfmaq2147 [place] [address]Dr. Ivette David Monocytes/100 WBC (Bld) 6.2 % Normal 1.7-12.[address] [facility] Comment on above: Performed By: #### C BC ####[facility] Aleiupjwzu7386 [place] [id number]. Ivette Hernandez NEUT # 5.6 103/ul Normal 1.4-6.[address] [facility] Comment on above: Performed By: #### C BC ####[facility] Zoyusjcyoj8823 [place] [address]Dr. Ivette Hernandez Neutrophils/100 WBC (Bld) 72.4 % Normal 43.0-75.[address] [facility] Comment on above: Performed By: #### C BC ####[facility] Kvszszvkpf0621 [place] [address]Dr. Ivette Hernandez Platelet mean volume (Bld) [Entitic vol] 9.6 fL Normal 9.5-13.[address] [facility] Comment on above: Performed By: #### C BC ####[facility] Oyxfufpcot2[address] [place], [place] [address]Dr. Ivette Hernandez PLT 233 103/ul Normal 150-[address] [facility] Comment on above: Performed By: #### C BC ####[facility] Rfzgbvsvsa47[address] [place], [place] [address]Dr. Ivette Hernandez RBC 2.90 106/ul Critically low 4.20-5.[address] [facility] Comment on above: Performed By: #### C BC ####[facility] Lxvpzcnney[address] [place], [place] [address]Dr. Ivette Hernandez WBC 7.7 103/ul Normal 4.0-11.[address] [facility] Comment on above: Performed By: #### C BC ####[facility] Rhohmxzguv8789[address] [place], [place] [address]Dr. Ivette Hernandez BASO # 0.0 103/ul Normal 0.0-0.[address] [facility] Comment on above: Performed By: #### C BC ####[facility] Hpsyjqprny4059[address] [place], [place] [address]Dr. Ivette Hernandez Basophils/100 WBC (Bld) 0.5 % Normal 0.2-2.[address] [facility] Comment on above: Performed By: #### C BC ####[facility] Wgswctgwkb39[address] [place], [place] [address]Dr. Ivette Hernandez EO # 0.2 103/ul Normal 0.0-0.[address] [facility] Comment on above: Performed By: #### C BC ####[facility] Dwdxhhrkea0813 [place] [address]Dr. Ivette Hernandez Eosinophils/100 WBC (Bld) 2.8 % Normal 0.9-7.[address] [facility] Comment on above: Performed By: #### C BC ####[facility] Ogjqbnfmkf[address] [place], [place] [address]Dr. Ivette Hernandez Erythrocyte distribution width (RBC) [Ratio] 14.3 % Normal 11.0-15.[address] [facility] Comment on above: Performed By: #### C BC ####[facility] Welbggkpao3794[address] [place], [place] [address]Dr. Ivette Hernandez Hematocrit (Bld) [Volume fraction] 25.2 % Critically low 36.0-48.[address] [facility] Comment on above: Performed By: #### C BC ####[facility] Lloqtvrvsl6470[address] [place], [place] [address]Dr. Ivette Hernandez Hemoglobin (Bld) [Mass/Vol] 7.8 g/dL Critically low 12.0-16.[address] [facility] Comment on above: Performed By: #### C BC ####[facility] Ucarxlgztm27[address] [place], [place] [address]Dr. Ivette Hernandez IG # 0.02 10e3/ul Normal 0.00-0.[address] [facility] Comment on above: Performed By: #### C BC ####[facility] Iaeybpxwua6825[address] [place], [place] [address]Dr. Ivette Hernandez IG % 0.3 % Normal 0.0-0.[address] [facility] Comment on above: Performed By: #### C BC ####[facility] Zfjnpaycrx8[address] [place], [place] [address]Dr. Ivette Hernandez LYMPH # 1.6 103/ul Normal 1.2-3.[address] [facility] Comment on above: Performed By: #### C BC ####[facility] Mmlqthhwxv0930[address] [place], [place] [address]Dr. Ivette Hernandez Lymphocytes/100 WBC (Bld) 24.5 % Normal 20.5-60.[address] [facility] Comment on above: Performed By: #### C BC ####[facility] Eqwsiheqjt32[address] [place] [address]Dr. Ivette Hernandez MANUAL DIFF REQ NO Normal [facility] Comment on above: Performed By: #### C BC ####[facility] Uhujmfdgon9199 [place] [address]Dr. Ivette Hernandez MCH (RBC) [Entitic mass] 28.4 pg Normal 26.7-34.[address] [facility] Comment on above: Performed By: #### C BC ####[facility] Knvqkfollw69[address] [place], [place] [address]Dr. Ivette Hernandez MCHC (RBC) [Mass/Vol] 31.0 g/dL Normal 29.9-35.[address] [facility] Comment on above: Performed By: #### C BC ####[facility] Ftuyjuijmh56[address] [place], [place] [address]Dr. Ivette Hernandez MCV (RBC) [Entitic vol] 91.6 fL Normal 81.0-99.[address] [facility] Comment on above: Performed By: #### C BC ####[facility] Tcyzbobxre7[address] [place], [place] [address]Dr. Ivette Hernandez MONO # 0.5 103/ul Normal 0.3-0.[address] [facility] Comment on above: Performed By: #### C BC ####[facility] Pfequvbwwb13[address] [place], [place] [address]Dr. Ivette Hernandez Monocytes/100 WBC (Bld) 7.8 % Normal 1.7-12.[address] [facility] Comment on above: Performed By: #### C BC ####[facility] Eufxsslbvp76[address] [place], [place] [address]DrJesse Hernandez NEUT # 4.2 103/ul Normal 1.4-6.[address] [facility] Comment on above: Performed By: #### C BC ####[facility] Xifssfnjqw5016[address] [place], [place] [address]Dr. Ivette Hernandez Neutrophils/100 WBC (Bld) 64.1 % Normal 43.0-75.[address] [facility] Comment on above: Performed By: #### C BC ####[facility] Ogcfstyqnl5127 [place] [address]Dr. Ivette Hernandez Platelet mean volume (Bld) [Entitic vol] 9.2 fL Critically low 9.5-13.[address] [facility] Comment on above: Performed By: #### C BC ####[facility] Fbhwwcsibw0772 [place] [address]Dr. Ivette Hernandez PLT 208 103/ul Normal 150-[address] [facility] Comment on above: Performed By: #### C BC ####[facility] Tvddnklkvk3394 [place] [address]Dr. Ivette Hernandez RBC 2.75 106/ul Critically low 4.20-5.[address] [facility] Comment on above: Performed By: #### C BC ####[facility] Tumdzklerc09[address] [place], [place] [address]Dr. Ivette Hernandez WBC 6.5 103/ul Normal 4.0-11.[address] [facility] Comment on above: Performed By: #### C BC ####[facility] Gzbcfovsjg5816 [place] [address]Dr. Ivette Hernandez MAGNESIUMon 03-09-2022 Magnesium [Mass/Vol] 1.7 mg/dL Critically low 1.8-2.[address] [facility] Comment on above: Performed By: #### B ENGLISH COMPOSITION INSTRUCTOR, PHOS, MG, CMP ####[facility] Dvjiebinbp0484 [place] [address]Dr. Ivette Hernandez MRI BRAIN WO CONon 2 MRI BRAIN WO CON Normal [facility] PHOSPHORUSon 03-09-2022 Phosphate [Mass/Vol] 3.5 mg/dL Normal 2.6-4.[address] [facility] Comment on above: Performed By: #### B ENGLISH COMPOSITION INSTRUCTOR, PHOS, MG, CMP ####[facility] Ztfifzhtgj0768 [place] [address]Dr. Cherjun Hernandez PROF 14(COMP METB)on 022 Albumin [Mass/Vol] 2.3 g/dL Critically low 3.4-5.0 [facility] Comment on above: Performed By: #### B ENGLISH COMPOSITION INSTRUCTOR, PHOS, MG, CMP ####[facility] Tfktrjiyqx[address] [place], [place] [address]Dr. Ivette Hernandez Albumin/Globulin [Mass ratio] 0.6 {ratio} Normal [facility] Comment on above: Performed By: #### B ENGLISH COMPOSITION INSTRUCTOR, PHOS, MG, CMP ####[facility] Gutzxjxdqh[address] [place], [place] [address]Dr. Ivette Hernandez ALP [Catalytic activity/Vol] 58 U/L Normal 46-116 [facility] Comment on above: Performed By: #### B ENGLISH COMPOSITION INSTRUCTOR, PHOS, MG, CMP ####[facility] Kknghscqdp19[address] [place], [place] [address]Dr. Ivette Hernandez ALT [Catalytic activity/Vol] 13 U/L Critically low 14-59 [facility] Comment on above: Performed By: #### B ENGLISH COMPOSITION INSTRUCTOR, PHOS, MG, CMP ####[facility] Lctonwlnhl54[address] [place], [place] [address]Dr. Ivette Hernandez Anion gap [Moles/Vol] 5.6 mmol/L Normal [facility] Comment on above: Performed By: #### B ENGLISH COMPOSITION INSTRUCTOR, PHOS, MG, CMP ####[facility] Wdtwgrlplp90[address] [place], [place] [address]Dr. Ivette Hernandez AST [Catalytic activity/Vol] 16 U/L Normal 15-37 [facility] Comment on above: Performed By: #### B ENGLISH COMPOSITION INSTRUCTOR, PHOS, MG, CMP ####[facility] Zzgfgvpufm9815[address] [place], [place] [address]Dr. Ivette Hernandez Bilirubin [Mass/Vol] 0.4 mg/dL Normal 0.2-1.0 [facility] Comment on above: Performed By: #### B ENGLISH COMPOSITION INSTRUCTOR, PHOS, MG, CMP ####[facility] Kaiwcmcldo850[address] [place], [place] [address]Dr. Ivette Hernandez Calcium [Mass/Vol] 7.9 mg/dL Critically low 8.5-10.1 [facility] Comment on above: Performed By: #### B ENGLISH COMPOSITION INSTRUCTOR, PHOS, MG, CMP ####[facility] Vmufodipkh6617 [place] [address]Dr. Ivette Hernandez Chloride [Moles/Vol] 99 mmol/L Normal 98-[address] [facility] Comment on above: Performed By: #### B ENGLISH COMPOSITION INSTRUCTOR, PHOS, MG, CMP ####[facility] Epkbzkclxr7584 [place] [address]Dr. Ivette Hernandez CO2 [Moles/Vol] 40.2 mmol/L Critically high 21.0-32.0 [facility] Comment on above: Performed By: #### B ENGLISH COMPOSITION INSTRUCTOR, PHOS, MG, CMP ####[facility] Hnthctpglt40[address] [place], [place] [address]Dr. vIette Hernandez Creatinine [Mass/Vol] 1.47 mg/dL Critically high 0.55-1.02 [facility] Comment on above: Performed By: #### B ENGLISH COMPOSITION INSTRUCTOR, PHOS, MG, CMP ####[facility] Vpmzfhgpjw11[address] [place], [place] [address]Dr. Ivette Hernandez EGFR-AF IVORIAN 42 mL/min/1.73m2 Critically low >=[address] [facility] Comment on above: Performed By: #### B ENGLISH COMPOSITION INSTRUCTOR, PHOS, MG, CMP ####[facility] Xovjjfxnun[address] [place], [place] [address]Dr. Ivette Hernandez EGFR-NON AF IVORIAN 35 mL/min/1.73m2 Critically low >=[address] [facility] Comment on above: Performed By: #### B ENGLISH COMPOSITION INSTRUCTOR, PHOS, MG, CMP ####[facility] Wcxtacizwe3964[address] [place], [place] [address]Dr. Ivette Hernandez Globulin (S) [Mass/Vol] 4.0 g/dL Normal [facility] Comment on above: Performed By: #### B ENGLISH COMPOSITION INSTRUCTOR, PHOS, MG, CMP ####[facility] Lktscdfuqs1728 [place] [address]Dr. Ivette Hernandez Glucose [Mass/Vol] 100 mg/dL Normal 74-[address] [facility] Comment on above: Performed By: #### B ENGLISH COMPOSITION INSTRUCTOR, PHOS, MG, CMP ####[facility] Ghnneovsnf[address]763 [place] [address]Dr. Ivette Hernandez Potassium [Moles/Vol] 3.8 mmol/L Normal 3.5-5.1 [facility] Comment on above: Performed By: #### B ENGLISH COMPOSITION INSTRUCTOR, PHOS, MG, CMP ####[facility] Wtfstlchpq5001 [place] [address]Dr. Ivette Hernandez Protein [Mass/Vol] 6.3 g/dL Critically low 6.4-8.2 [facility] Comment on above: Performed By: #### B ENGLISH COMPOSITION INSTRUCTOR, PHOS, MG, CMP ####[facility] Rdkhgoojmp8[address] [place], [place] [address]Dr. Ivette Hernandez Sodium [Moles/Vol] 141 mmol/L Normal 136-145 [facility] Comment on above: Performed By: #### B ENGLISH COMPOSITION INSTRUCTOR, PHOS, MG, CMP ####[facility] Fjlwqonypi4738[address] [place], [place] [address]Dr. Ivette Hernandez Urea nitrogen [Mass/Vol] 19.0 mg/dL Critically high 7.0-18.0 [facility] Comment on above: Performed By: #### B ENGLISH COMPOSITION INSTRUCTOR, PHOS, MG, CMP ####[facility] Ddsmkebwcx46[address] [place], [place] [address]Dr. Ivette Hernandez Urea nitrogen/Creatinine [Mass ratio] 12.9 mg/mg Normal [facility] Comment on above: Performed By: #### B ENGLISH COMPOSITION INSTRUCTOR, PHOS, MG, CMP ####[facility] Oajueectky[address] [place], [place] [address]Dr. Ivette Hernandez BNPon 03-08-2022 Natriuretic peptide B (Bld) [Mass/Vol] 66194.0 pg/mL Critically high <=900.0 [facility] Comment on above: Performed By: #### B ENGLISH COMPOSITION INSTRUCTOR, CMP, HSTROPN ####[facility] Crwgdimguq26[address] [place], [place] [address]Dr. Ivette Hernandez CBC AUTO DIFFon 03-08-2022 BASO # 0.0 103/ul Normal 0.0-0.1 [facility] Comment on above: Performed By: #### C BC ####[facility] Ykdkzixrkn0810 [place] [id number]. Ivette Hernandez Basophils/100 WBC (Bld) 0.4 % Normal 0.2-2.[address] [facility] Comment on above: Performed By: #### C BC ####[facility] [address]niodilz[address] [place], [place] [id number]. Ivtete Hernandez EO # 0.3 103/ul Normal 0.0-0.[address] [facility] Comment on above: Performed By: #### C BC ####[facility] Vqufyiumum[address] [place], [place] [address]Dr. Ivette Hernandez Eosinophils/100 WBC (Bld) 2.5 % Normal 0.9-7.[address] [facility] Comment on above: Performed By: #### C BC ####[facility] Juyiycklaa88[address] [place], [place] [address]Dr. Ivette Hernandez Erythrocyte distribution width (RBC) [Ratio] 14.0 % Normal 11.0-15.0 [facility] Comment on above: Performed By: #### C BC ####[facility] Dboqcxjnph78[address] [place], [place] [address]Dr. Ivette Hernandez Hematocrit (Bld) [Volume fraction] 29.7 % Critically low 36.0-48.[address] [facility] Comment on above: Performed By: #### C BC ####[facility] Ogprmchgib[address] [place], [place] [address]Dr. Ivette Hernandez Hemoglobin (Bld) [Mass/Vol] 9.2 g/dL Critically low 12.0-16.[address] [facility] Comment on above: Performed By: #### C BC ####[facility] Tmrcmtwxko07[address] [place], [place] [address]Dr. Ivette Hernandez IG # 0.08 10e3/ul Critically high 0.00-0.03 [facility] Comment on above: Performed By: #### C BC ####[facility] [address]vlhcvuv[address] [place], [place] [address]Dr. Ivette Hernandez IG % 0.8 % Critically high 0.0-0.5 [facility] Comment on above: Performed By: #### C BC ####[facility] Khissktdjg[address] [place] [address]Dr. Ivette Hernandez LYMPH # 2.5 103/ul Normal 1.2-3.8 [facility] Comment on above: Performed By: #### C BC ####[facility] Gbsakgdcuu9018 [place] [id number]. Ivette Hernandez Lymphocytes/100 WBC (Bld) 24.8 % Normal 20.5-60.0 [facility] Comment on above: Performed By: #### C BC ####[facility] Wqybfxdjrg1681 [place] [address]Dr. Ivette Hernandez MANUAL DIFF REQ NO Normal [facility] Comment on above: Performed By: #### C BC ####[facility] Aggynchejd9914 [place] [address]Dr. Ivette Hernandez MCH (RBC) [Entitic mass] 28.5 pg Normal 26.7-34.0 [facility] Comment on above: Performed By: #### C BC ####[facility] Hspzxrbcff[address] [place] [address]Dr. Cherjun Hernandez MCHC (RBC) [Mass/Vol] 31.0 g/dL Normal 29.9-35.2 [facility] Comment on above: Performed By: #### C BC ####[facility] Towpskrcfy[address] [place], [place] [address]DrJesse Hernandez MCV (RBC) [Entitic vol] 92.0 fL Normal 81.0-99.0 [facility] Comment on above: Performed By: #### C BC ####[facility] Mwgjiwfzae8129 [place] [address]DrJesse Hernandez MONO # 0.6 103/ul Normal 0.3-0.[address] [facility] Comment on above: Performed By: #### C BC ####[facility] Hjcznnnprl7149 [place] [id number]. Ivette Hernandez Monocytes/100 WBC (Bld) 6.3 % Normal 1.7-12.[address] [facility] Comment on above: Performed By: #### C BC ####[facility] Jishroyyww9635 [place] [id number]. Ivette Hernandez NEUT # 6.6 103/ul Critically high 1.4-6.5 [facility] Comment on above: Performed By: #### C BC ####[facility] Bibhputrzv3598 [place] [id number]. Ivette Hernandez Neutrophils/100 WBC (Bld) 65.2 % Normal 43.0-75.0 [facility] Comment on above: Performed By: #### C BC ####[facility] Pgvopzlhcz3685 [place] [address]Dr. Ivette Hernandez Platelet mean volume (Bld) [Entitic vol] 9.7 fL Normal 9.5-13.5 [facility] Comment on above: Performed By: #### C BC ####[facility] Sowcqqghts39[address] [place] [address]Dr. Ivette Hernandez PLT 328 103/ul Normal 150-[address] [facility] Comment on above: Performed By: #### C BC ####[facility] [address]oiovdz[address] [place], [place] [address]Dr. Ivette Hernandez RBC 3.23 106/ul Critically low 4.20-5.[address] [facility] Comment on above: Performed By: #### C BC ####[facility] Mgqylzafsm6204 [place] [id number]. Ivette Hernandez WBC 10.1 103/ul Normal 4.0-11.[address] [facility] Comment on above: Performed By: #### C BC ####[facility] Gbtokasjwc3293 [place] [id number]. Ivette Hernandez BASO # 0.0 103/ul Normal 0.0-0.[address] [facility] Comment on above: Performed By: #### C BC ####[facility] [facility] Rfsjvhoqko6942 [place] [id number]. Ivette Hernandez Basophils/100 WBC (Bld) 0.4 % Normal 0.2-2.[address] [facility] Comment on above: Performed By: #### C BC ####[facility] Xbxowoqzkv8979 [place] [address]Dr. Ivette Hernandez EO # 0.2 103/ul Normal 0.0-0.7 [facility] Comment on above: Performed By: #### C BC ####[facility] Xiacxnwngl695[address] [place], [place] [address]Dr. Ivette Hernandez Eosinophils/100 WBC (Bld) 2.9 % Normal 0.9-7.0 [facility] Comment on above: Performed By: #### C BC ####[facility] Njybgpgocc8364[address] [place], [place] [address]Dr. Ivette Hernandez Erythrocyte distribution width (RBC) [Ratio] 14.2 % Normal 11.0-15.0 [facility] Comment on above: Performed By: #### C BC ####[facility] Qmuvkrgbqw016168 [address] [place], [place] [address]Dr. Ivette Hernandez Hematocrit (Bld) [Volume fraction] 27.7 % Critically low 36.0-48.0 [facility] Comment on above: Performed By: #### C BC ####[facility] Ljljvaisdv27[address] [place], [place] [address]Dr. Ivette Hernandez Hemoglobin (Bld) [Mass/Vol] 8.5 g/dL Critically low 12.0-16.0 [facility] Comment on above: Performed By: #### C BC ####[facility] Npmnwpratd213[address] [place], [place] [address]Dr. Ivette Hernandez IG # 0.04 10e3/ul Critically high 0.00-0.03 [facility] Comment on above: Performed By: #### C BC ####[facility] Vdxuxsscvi794[address] [place], [place] [address]Dr. Cherjun Hernandez IG % 0.5 % Normal 0.0-0.[address] [facility] Comment on above: Performed By: #### C BC ####[facility] Qkkmvuould140[address] [place], [place] [address]Dr. Cherjun Hernandez LYMPH # 2.1 103/ul Normal 1.2-3.[address] [facility] Comment on above: Performed By: #### C BC ####[facility] Rjljneafop7993 [place] [id number]. Ivette David Lymphocytes/100 WBC (Bld) 27.3 % Normal 20.5-60.0 [facility] Comment on above: Performed By: #### C BC ####[facility] Cdxljqmbup0158 [place] [id number]. Ivette Hernandez MANUAL DIFF REQ NO Normal [facility] Comment on above: Performed By: #### C BC ####[facility] Iryteyunri2483 [place] [id number]. Cherjun Hernandez MCH (RBC) [Entitic mass] 28.1 pg Normal 26.7-34.0 [facility] Comment on above: Performed By: #### C BC ####[facility] Ftbleyxvlf5877[address] [place], [place] [address]Dr. Ivette Hernandez MCHC (RBC) [Mass/Vol] 30.7 g/dL Normal 29.9-35.[address] [facility] Comment on above: Performed By: #### C BC ####[facility] Vgsqflomhl1986[address] [place], [place] [address]Dr. Cherjun Hernandez MCV (RBC) [Entitic vol] 91.4 fL Normal 81.0-99.0 [facility] Comment on above: Performed By: #### C BC ####[facility] Iumesczcss378[address] [place], [place] [address]Dr. Ivette Hernandez MONO # 0.5 103/ul Normal 0.3-0.[address] [facility] Comment on above: Performed By: #### C BC ####[facility] Czlddguhkh432[address] [place], [place] [address]Dr. Ivette Hernandez Monocytes/100 WBC (Bld) 6.1 % Normal 1.7-12.[address] [facility] Comment on above: Performed By: #### C BC ####[facility] Bsaisvveuz15[address] [place], [place] [id number]. Ivette Hernandez NEUT # 4.9 103/ul Normal 1.4-6.[address] [facility] Comment on above: Performed By: #### C BC ####[facility] Bpmeibqdby6049 [place], [place] [address]Rw. Ivette Hernandez Neutrophils/100 WBC (Bld) 62.8 % Normal 43.0-75.0 [facility] Comment on above: Performed By: #### C BC ####[facility] Mzvgsvxiih8654 [place], [place] [address]Dd. Ivette Hernandez Platelet mean volume (Bld) [Entitic vol] 9.7 fL Normal 9.5-13.[address] [facility] Comment on above: Performed By: #### C BC ####[facility] Bbaqngbjgu6658 [place], [place] [address]Gb. Ivette Hernandez PLT 227 103/ul Normal 150-[address] [facility] Comment on above: Performed By: #### C BC ####[facility] Dodxidsdoc9952 [place], [place] [address]Ju. Ivette Hernandez RBC 3.03 106/ul Critically low 4.20-5.[address] [facility] Comment on above: Performed By: #### C BC ####[facility] Xcrwlyatpf3539 [place], [place] [address]Uj. Ivette Hernandez WBC 7.8 103/ul Normal 4.0-11.[address] [facility] Comment on above: Performed By: #### C BC ####[facility] Cofduhbxwi7505 [place], [place] [address]Xf. Ivette Hernandez CT HEAD WO CONon 03-08-2022 CT HEAD WO CON Normal [facility] CTA HEAD WO W CONon 03-08-20 CTA HEAD WO W CON Normal [facility] Covid-19 PCR ([facility])on SARS-CoV-2 (COVID-19) RNA MARRY+probe Ql (Unsp spec) Not detected Normal NOT DETECTED [facility] Comment on above: Result Comment: When [...] for this test is supported by the Automatic [employer]illing [employer] Operator of Health and Human Service's declaration that [...] be used). Performed By: #### C VDTBH ####[facility] Cwrljdiduf8743 [place] [address]Dr. Ivette Hernandez PROF 14(COMP METB)on 022 Albumin [Mass/Vol] 2.6 g/dL Critically low 3.4-5.0 Th [facility] Comment on above: Performed By: #### B ENGLISH COMPOSITION INSTRUCTOR, CMP, HSTROPN ####[facility] Siskiektst1360 [place] [address]Dr. Ivette Hernandez Albumin/Globulin [Mass ratio] 0.6 {ratio} Normal [facility] Comment on above: Performed By: #### B ENGLISH COMPOSITION INSTRUCTOR, CMP, HSTROPN ####[facility] Bqzgldnwgg0823 [place] [address]Dr. Ivette Hernandez ALP [Catalytic activity/Vol] 68 U/L Normal 46-116 [facility] Comment on above: Performed By: #### B ENGLISH COMPOSITION INSTRUCTOR, CMP, HSTROPN ####[facility] Waczvkkgin7603 [place] [address]Dr. Ivette Hernandez ALT [Catalytic activity/Vol] 16 U/L Normal 14-59 [facility] Comment on above: Performed By: #### B ENGLISH COMPOSITION INSTRUCTOR, CMP, HSTROPN ####[facility] Abbgssjyle2690 [place] [address]Dr. Ivette Hernandez Anion gap [Moles/Vol] 6.8 mmol/L Normal [facility] Comment on above: Performed By: #### B ENGLISH COMPOSITION INSTRUCTOR, CMP, HSTROPN ####[facility] Qctbndkjgr0740 [place] [address]Dr. Ivette Hernandez AST [Catalytic activity/Vol] 18 U/L Normal 15-[address] [facility] Comment on above: Performed By: #### B ENGLISH COMPOSITION INSTRUCTOR, CMP, HSTROPN ####[facility] Jwxbqhpbka3432 [place] [address]Dr. Ivette Hernandez Bilirubin [Mass/Vol] 0.5 mg/dL Normal 0.2-1.[address] [facility] Comment on above: Performed By: #### B ENGLISH COMPOSITION INSTRUCTOR, CMP, HSTROPN ####[facility] Nfpfqpoqht5703 [place] [address]Dr. Ivette Hernandez Calcium [Mass/Vol] 8.2 mg/dL Critically low 8.5-10.[address] [facility] Comment on above: Performed By: #### B ENGLISH COMPOSITION INSTRUCTOR, CMP, HSTROPN ####[facility] Xbfcklcedc1967[address] [place], [place] [address]Dr. Ivette Hernandez Chloride [Moles/Vol] 97 mmol/L Critically low 98-[address] [facility] Comment on above: Performed By: #### B ENGLISH COMPOSITION INSTRUCTOR, CMP, HSTROPN ####[facility] Gmfbnhstcm855[address] [place], [place] [address]Dr. Ivette Hernandez CO2 [Moles/Vol] 37.9 mmol/L Critically high 21.0-32.0 [facility] Comment on above: Performed By: #### B ENGLISH COMPOSITION INSTRUCTOR, CMP, HSTROPN ####[facility] Akixooyjof2539[address] [place], [place] [address]Dr. Ivette Hernandez Creatinine [Mass/Vol] 1.65 mg/dL Critically high 0.55-1.02 [facility] Comment on above: Performed By: #### B ENGLISH COMPOSITION INSTRUCTOR, CMP, HSTROPN ####[facility] Yeatcxcdzv9535[address] [place], [place] [address]Dr. Ivette Hernandez EGFR-AF IVORIAN 37 mL/min/1.73m2 Critically low >=[address] [facility] Comment on above: Performed By: #### B ENGLISH COMPOSITION INSTRUCTOR, CMP, HSTROPN ####[facility] Shtpktkxmz1970[address] [place], [place] [address]Dr. Ivette Hernandez EGFR-NON AF IVORIAN 30 mL/min/1.73m2 Critically low >=[address] [facility] Comment on above: Performed By: #### B ENGLISH COMPOSITION INSTRUCTOR, CMP, HSTROPN ####[facility] Gfnayeoctg1409 [place] [address]Dr. Ivette Hernandez Globulin (S) [Mass/Vol] 4.7 g/dL Normal [facility] Comment on above: Performed By: #### B ENGLISH COMPOSITION INSTRUCTOR, CMP, HSTROPN ####[facility] Jtwnxmarbg3282 [place] [address]Dr. Ivette Hernandez Glucose [Mass/Vol] 203 mg/dL Critically high 74-106 T [facility] Comment on above: Performed By: #### B ENGLISH COMPOSITION INSTRUCTOR, CMP, HSTROPN ####[facility] Nekylclhmd8964 [place] [address]Dr. Ivette Hernandez Potassium [Moles/Vol] 3.7 mmol/L Normal 3.5-5.[address] [facility] Comment on above: Performed By: #### B ENGLISH COMPOSITION INSTRUCTOR, CMP, HSTROPN ####[facility] Uozhovyhhh1456 [place] [address]Dr. Ivette Hernandez Protein [Mass/Vol] 7.3 g/dL Normal 6.4-8.[address] [facility] Comment on above: Performed By: #### B ENGLISH COMPOSITION INSTRUCTOR, CMP, HSTROPN ####[facility] Lomcfwozlx6898 [place] [address]Dr. Ivette Hernandez Sodium [Moles/Vol] 138 mmol/L Normal 136-[address] [facility] Comment on above: Performed By: #### B ENGLISH COMPOSITION INSTRUCTOR, CMP, HSTROPN ####[facility] Zzqmzgfrdc3753 [place] [address]Dr. Ivette Hernandez Urea nitrogen [Mass/Vol] 22.0 mg/dL Critically high 7.0-18.[address] [facility] Comment on above: Performed By: #### B ENGLISH COMPOSITION INSTRUCTOR, CMP, HSTROPN ####[facility] Uqaybyrbta8021 [place] [address]Dr. Ivette Hernandez Urea nitrogen/Creatinine [Mass ratio] 13.3 mg/mg Normal [facility] Comment on above: Performed By: #### B ENGLISH COMPOSITION INSTRUCTOR, CMP, HSTROPN ####[facility] Nktscdsxkx1536 [place] [address]Dr. Ivette Hernandez PROF CHEM 8 (BAS METB)on Anion gap [Moles/Vol] 6.0 mmol/L Normal [facility] Comment on above: Performed By: #### B MP ####[facility] Otbqnuluwn344[address] [place], [place] [address]Dr. Ivette Hernandez Calcium [Mass/Vol] 8.0 mg/dL Critically low 8.5-10.[address] [facility] Comment on above: Performed By: #### B MP ####[facility] Qebsjgaxqo09[address] [place], [place] [address]Dr. Ivette Hernandez Chloride [Moles/Vol] 98 mmol/L Normal 98-107 [facility] Comment on above: Performed By: #### B MP ####[facility] Ebmkmvizsp865[address] [place], [place] [address]Dr. Ivette Hernandez CO2 [Moles/Vol] 39.9 mmol/L Critically high 21.0-32.0 [facility] Comment on above: Performed By: #### B MP ####[facility] Yptectwkal3300[address] [place], [place] [address]Dr. Ivette Hernandez Creatinine [Mass/Vol] 1.56 mg/dL Critically high 0.55-1.02 [facility] Comment on above: Performed By: #### B MP ####[facility] Lejykougjs8633[address] [place], [place] [address]Dr. Ivette Hernandez EGFR-AF IVORIAN 39 mL/min/1.73m2 Critically low >=[address] [facility] Comment on above: Performed By: #### B MP ####[facility] Cemhiaszol5347[address] [place], [place] [address]Dr. Ivette Hernandez EGFR-NON AF IVORIAN 33 mL/min/1.73m2 Critically low >=[address] [facility] Comment on above: Performed By: #### B MP ####[facility] Msdfnuwuwo9182 [place] [address]Dr. Ivette Hernandez Glucose [Mass/Vol] 143 mg/dL Critically high 74-106 T [facility] Comment on above: Performed By: #### B MP ####[facility] Wlrxauxnmk7254[address] [place], [place] [address]Dr. Ivette Hernandez Potassium [Moles/Vol] 3.9 mmol/L Normal 3.5-5.1 [facility] Comment on above: Performed By: #### B MP ####[facility] Blrjcrzhyo0729[address] [place], [place] [address]Dr. Ivette Hernandez Sodium [Moles/Vol] 140 mmol/L Normal 136-145 [facility] Comment on above: Performed By: #### B MP ####[facility] Abociffenq4860[address] [place], [place] [address]Dr. Ivette Hernandez Urea nitrogen [Mass/Vol] 23.0 mg/dL Critically high 7.0-18.0 [facility] Comment on above: Performed By: #### B MP ####[facility] Pxxzwwgvyb6078[address] [place], [place] [address]Dr. Ivette Hernandez Urea nitrogen/Creatinine [Mass ratio] 14.7 mg/mg Normal [facility] Comment on above: Performed By: #### B MP ####[facility] Dlczfulwjt9949[address] [place], [place] [address]Dr. Ivette Hernandez PROTIMEon 03-08-2022 INR Coag (PPP) [Relative time] 1.11 {INR} Normal [facility] Comment on above: Performed By: #### P T, PTT ####[facility] Uvkpfepzyb8557[address] [place], [place] [address]Dr. Ivette Hernandez INR GUIDELINES SEE BELOW Normal [facility] Comment on above: Result Comment: MELANIE RED INR: 2.0 - 3.0 CONDITIONS NOT LISTED BELOW 2.5 - 3.5 FOR PROSTHETIC HEART VALVE REPLACEMENT 2.5 - 3.5 RECURRENT THROMBOSIS Performed By: #### P T, PTT ####[facility] Zifuaxansk0797[address] [place], [place] [address]Dr. Ivette Hernandez PT Coag (PPP) [Time] 11.9 s Critically high 9.0-11.[address] [facility] Comment on above: Performed By: #### P T, PTT ####[facility] Hmohwmcait2232 [place] [id number]. Ivette Hernandez PTTon 03-08-2022 aPTT Coag (Bld) [Time] 29.0 s Normal 22.3-36.[address] [facility] Comment on above: Performed By: #### P T, PTT ####[facility] Hlefnqkzva4305 [place] [address]Dr. Ivette Hernandez TROPONIN, HIGH SENSITIVITYon 03-08-2022 HSTROP 74.2 pg/mL Critically high 4.0-51.[address] [facility] Comment on above: Result Comment: CUT- OFF POINTS HAVE BEEN ESTABLISHED BASED ON THE FOURTH UNIVERSAL DEFINITIONS OF MYOCARDIALINFARCTION. THE UPPER REFERENCE LIMIT (URL) OF TROPONIN, DEFINED THE 99TH PERCENTILE OFcTnI DISTRIBUTION IN A REFERENCE POPULATION, HAS BEEN CONFIRMED THE DECISION THRESHOLDFOR WA DIAGNOSIS. Performed By: #### B ENGLISH COMPOSITION INSTRUCTOR, CMP, HSTROPN ####[facility] Jhivkfolju0590[address] [place], [place] [address]Dr. Ivette Hernandez XR CHEST 1 Von 03-08-2022 XR CHEST 1 V Normal [facility] CBC AUTO DIFFon 03-07-2022 BASO # 0.0 103/ul Normal 0.0-0.[address] [facility] Comment on above: Performed By: #### C BC ####[facility] Ptgeldhzub8822[address] [place], [place] [address]Dr. Ivette David Basophils/100 WBC (Bld) 0.5 % Normal 0.2-2.[address] [facility] Comment on above: Performed By: #### C BC ####[facility] Aaidyvepzm1669 [place] [id number]. Cherjun Hernandez EO # 0.3 103/ul Normal 0.0-0.[address] [facility] Comment on above: Performed By: #### C BC ####[facility] [address]dssgnafks[address] [place], [place] [address]Dr. Ivette David Eosinophils/100 WBC (Bld) 3.9 % Normal 0.9-7.0 [facility] Comment on above: Performed By: #### C BC ####[facility] Hiygqamxpz006[address] [place], [place] [address]Dr. Ivette Hernandez Erythrocyte distribution width (RBC) [Ratio] 14.1 % Normal 11.0-15.0 [facility] Comment on above: Performed By: #### C BC ####[facility] Mjoprwikmy7585[address] [place], [place] [address]Dr. Ivette Hernandez Hematocrit (Bld) [Volume fraction] 26.9 % Critically low 36.0-48.[address] [facility] Comment on above: Performed By: #### C BC ####[facility] Emuvwvripv054168 [address] [place], [place] [address]Dr. Ivette Hernandez Hemoglobin (Bld) [Mass/Vol] 8.1 g/dL Critically low 12.0-16.0 [facility] Comment on above: Performed By: #### C BC ####[facility] Nvrculcnuh584[address] [place], [place] [address]DrJesse Hernandez IG # 0.06 10e3/ul Critically high 0.00-0.03 [facility] Comment on above: Performed By: #### C BC ####[facility] Dzvfkgqdgk0030[address] [place], [place] [address]DrJesse Hernandez IG % 0.8 % Critically high 0.0-0.5 [facility] Comment on above: Performed By: #### C BC ####[facility] Zdeughhneh765[address] [place], [place] [address]DrJesse Hernandez LYMPH # 1.7 103/ul Normal 1.2-3.[address] [facility] Comment on above: Performed By: #### C BC ####[facility] Mktvtcwxhq325[address] [place], [place] [address]DrJesse Hernandez Lymphocytes/100 WBC (Bld) 21.9 % Normal 20.5-60.[address] [facility] Comment on above: Performed By: #### C BC ####[facility] Qpkmftbbwp982168 [address] [place], [place] [address]DrJesse Hernandez MANUAL DIFF REQ NO Normal [facility] Comment on above: Performed By: #### C BC ####[facility] Xzwuzvrhjf6218 [place] [address]DrJesse Cherjun Hernandez MCH (RBC) [Entitic mass] 28.2 pg Normal 26.7-34.0 [facility] Comment on above: Performed By: #### C BC ####[facility] Ktgptdfzxq3025 [place] [address]DrJesse Hernandez MCHC (RBC) [Mass/Vol] 30.1 g/dL Normal 29.9-35.2 [facility] Comment on above: Performed By: #### C BC ####[facility] Gsxdojuqil4955[address] [place], [place] [address]DrJesse Hernandez MCV (RBC) [Entitic vol] 93.7 fL Normal 81.0-99.0 [facility] Comment on above: Performed By: #### C BC ####[facility] Jhooryzoax6176[address] [place], [place] [address]DrJesse Hernandez MONO # 0.5 103/ul Normal 0.3-0.[address] [facility] Comment on above: Performed By: #### C BC ####[facility] Lmuvrfslnc5574[address] [place], [place] [address]DrJesse Hernandez Monocytes/100 WBC (Bld) 6.5 % Normal 1.7-12.[address] [facility] Comment on above: Performed By: #### C BC ####[facility] Wvrmzfelkf066[address] [place], [place] [address]DrJesse Hernandez NEUT # 5.3 103/ul Normal 1.4-6.[address] [facility] Comment on above: Performed By: #### C BC ####[facility] Abueqiatpm9812[address] [place], [place] [address]DrJesse Hernandez Neutrophils/100 WBC (Bld) 66.4 % Normal 43.0-75.[address] [facility] Comment on above: Performed By: #### C BC ####[facility] Vmhzrgtkai3907[address] [place], [place] [address]DrJesse Hernandez Platelet mean volume (Bld) [Entitic vol] 9.9 fL Normal 9.5-13.5 [facility] Comment on above: Performed By: #### C BC ####[facility] Shtuvesbcs4505 [place] [address]Dr. Ivette Hernandez PLT 229 103/ul Normal 150-450 [facility] Comment on above: Performed By: #### C BC ####[facility] Zmojvcrcnb8685 [place] [address]Dr. Ivette Hernandez RBC 2.87 106/ul Critically low 4.20-5.40 [facility] Comment on above: Performed By: #### C BC ####[facility] Elezvsswch9258 [place] [address]Dr. Ivette Hernandez WBC 7.9 103/ul Normal 4.0-11.0 [facility] Comment on above: Performed By: #### C BC ####[facility] Ooltkfrlod8887[address] [place], [place] [address]Dr. Ivette Hernandez PROF CHEM 8 (BAS METB)on Anion gap [Moles/Vol] 2.9 mmol/L Normal [facility] Comment on above: Performed By: #### B MP ####[facility] Tdvtfodbsl926[address] [place], [place] [address]Dr. Ivette Hernandez Calcium [Mass/Vol] 7.5 mg/dL Critically low 8.5-10.1 Th [facility] Comment on above: Performed By: #### B MP ####[facility] Dzhdkuhdwj6020[address] [place], [place] [address]Dr. Ivette Hernandez Chloride [Moles/Vol] 102 mmol/L Normal 98-[address] [facility] Comment on above: Performed By: #### B MP ####[facility] Egmxuhjdzr2099[address] [place], [place] [address]Dr. Ivette Hernandez CO2 [Moles/Vol] 41.1 mmol/L Critically high 21.0-32.0 [facility] Comment on above: Performed By: #### B MP ####[facility] Bnhxntolqf2177[address] [place], [place] [address]Dr. Ivette Hernandez Creatinine [Mass/Vol] 1.58 mg/dL Critically high 0.55-1.02 [facility] Comment on above: Performed By: #### B MP ####[facility] Xzxxfihuoz5943 [place] [address]Dr. Ivette Hernandez EGFR-AF IVORIAN 39 mL/min/1.73m2 Critically low >=60 [facility] Comment on above: Performed By: #### B MP ####[facility] Xmgzhadutz6428 [place] [address]Dr. Ivette Hernandez EGFR-NON AF IVORIAN 32 mL/min/1.73m2 Critically low >=60 [facility] Comment on above: Performed By: #### B MP ####[facility] Nlnpywqxsk524[address] [place], [place] [address]Dr. Ivette Hernandez Glucose [Mass/Vol] 115 mg/dL Critically high 74-106 T [facility] Comment on above: Performed By: #### B MP ####[facility] Lkyakmfudz5717[address] [place], [place] [address]Dr. Ivette Hernandez Potassium [Moles/Vol] 4.0 mmol/L Normal 3.5-5.1 [facility] Comment on above: Performed By: #### B MP ####[facility] Wrdzctizmf6945[address] [place], [place] [address]Dr. Ivette Hernandez Sodium [Moles/Vol] 142 mmol/L Normal 136-145 [facility] Comment on above: Performed By: #### B MP ####[facility] Fvixelneha175[address] [place], [place] [address]Dr. Ivette Hernandez Urea nitrogen [Mass/Vol] 23.0 mg/dL Critically high 7.0-18.0 [facility] Comment on above: Performed By: #### B MP ####[facility] Aoltaevkoi[address] [place], [place] [address]Dr. Ivette Hernandez Urea nitrogen/Creatinine [Mass ratio] 14.6 mg/mg Normal [facility] Comment on above: Performed By: #### B MP ####[facility] Ftidakfwxa0439[address] [place], [place] [address]Dr. Ivette Hernandez CBC AUTO DIFFon 03-06-2022 BASO # 0.0 103/ul Normal 0.0-0.[address] [facility] Comment on above: Performed By: #### C BC ####[facility] Wkgbtjzvhw9[address] [place] [address]Dr. Ivette Hernandez Basophils/100 WBC (Bld) 0.3 % Normal 0.2-2.[address] [facility] Comment on above: Performed By: #### C BC ####[facility] Ksgbtadrki7[address] [place], [place] [address]Dr. Ivette Hernandez EO # 0.2 103/ul Normal 0.0-0.[address] [facility] Comment on above: Performed By: #### C BC ####[facility] Dqbdjlaaxn80[address] [place], [place] [address]Dr. Ivette Hernandez Eosinophils/100 WBC (Bld) 2.4 % Normal 0.9-7.[address] [facility] Comment on above: Performed By: #### C BC ####[facility] Dknpeynhzk[address] [place], [place] [address]Dr. Ivette Hernandez Erythrocyte distribution width (RBC) [Ratio] 14.3 % Normal 11.0-15.[address] [facility] Comment on above: Performed By: #### C BC ####[facility] Beiqiqupvf[address] [place], [place] [address]Dr. Ivette Hernandez Hematocrit (Bld) [Volume fraction] 27.2 % Critically low 36.0-48.[address] [facility] Comment on above: Performed By: #### C BC ####[facility] Kzfmbmfgxw[address] [place], [place] [address]Dr. Ivette Hernandez Hemoglobin (Bld) [Mass/Vol] 7.8 g/dL Critically low 12.0-16.[address] [facility] Comment on above: Performed By: #### C BC ####[facility] Nooeiozvmk7[address] [place], [place] [address]Dr. Cherjun Hernandez IG # 0.07 10e3/ul Critically high 0.00-0.[address] [facility] Comment on above: Performed By: #### C BC ####[facility] Emtqdyzbpp25[address] [place] [id number]. Cherjun Hernandez IG % 0.8 % Critically high 0.0-0.[address] [facility] Comment on above: Performed By: #### C BC ####[facility] Stjfnwikvb0277 [place] [address]DrJesse Hernandez LYMPH # 1.8 103/ul Normal 1.2-3.[address] [facility] Comment on above: Performed By: #### C BC ####[facility] Gqvhqdxrry450[address] [place], [place] [address]DrJesse Cherjun Hernandez Lymphocytes/100 WBC (Bld) 21.2 % Normal 20.5-60.[address] [facility] Comment on above: Performed By: #### C BC ####[facility] Xdehzkvhhp65[address] [place], [place] [address]DrJesse Hernandez MANUAL DIFF REQ NO Normal The [facility] Comment on above: Performed By: #### C BC ####[facility] Vbdlbvzosf3704 [place] [address]Dr. Ivette David MCH (RBC) [Entitic mass] 27.6 pg Normal 26.7-34.[address] [facility] Comment on above: Performed By: #### C BC ####[facility] Bqkqmwfczn34[address] [place], [place] [address]DrJesse Ivette David MCHC (RBC) [Mass/Vol] 28.7 g/dL Critically low 29.9-35.[address] [facility] Comment on above: Performed By: #### C BC ####[facility] Rqrthaypwi38[address] [place], [place] [address]DrJesse Hernandez MCV (RBC) [Entitic vol] 96.1 fL Normal 81.0-99.[address] [facility] Comment on above: Performed By: #### C BC ####[facility] Ghubpphqzt8[address] [place], [place] [address]DrJesse Hernandez MONO # 0.6 103/ul Normal 0.3-0.[address] [facility] Comment on above: Performed By: #### C BC ####[facility] Zhowhwmrjq4[address] [place], [place] [id number] Ivette Hernandez Monocytes/100 WBC (Bld) 6.8 % Normal 1.7-12.[address] [facility] Comment on above: Performed By: #### C BC ####[facility] Rjbiyrauyb2636 [place] [address]Dr. Ivette Hernandez NEUT # 5.9 103/ul Normal 1.4-6.[address] [facility] Comment on above: Performed By: #### C BC ####[facility] Fvvwtemwqx5382 [place] [address]Dr. Ivette Hernandez Neutrophils/100 WBC (Bld) 68.5 % Normal 43.0-75.[address] [facility] Comment on above: Performed By: #### C BC ####[facility] Ikxrmeavee3468 [place] [address]Dr. Ivette Hernandez Platelet mean volume (Bld) [Entitic vol] 9.9 fL Normal 9.5-13.[address] [facility] Comment on above: Performed By: #### C BC ####[facility] Wuojpmqaga2288 [place] [address]Dr. Ivette Hernandez PLT 193 103/ul Normal 150-[address] [facility] Comment on above: Performed By: #### C BC ####[facility] Azeeugssgc9732 [place] [address]Dr. Ivette Hernandez RBC 2.83 106/ul Critically low 4.20-5.[address] [facility] Comment on above: Performed By: #### C BC ####[facility] Vjldhdemzm9381 [place] [address]Dr. Ivette Hernandez WBC 8.7 103/ul Normal 4.0-11.[address] [facility] Comment on above: Performed By: #### C BC ####[facility] Hzlhhfrahv4374 [place] [address]Dr. Ivette David PROF CHEM 8 (BAS METB)on Anion gap [Moles/Vol] 2.7 mmol/L Normal The [facility] Comment on above: Performed By: #### B MP ####[facility] Smkuzwexxe737[address] [place], [place] [address]Dr. Ivette Hernandez Calcium [Mass/Vol] 7.6 mg/dL Critically low 8.5-10.[address] [facility] Comment on above: Performed By: #### B MP ####[facility] Dsyhgxhzzf4261 [place] [address]Dr. Ivette Hernandez Chloride [Moles/Vol] 103 mmol/L Normal 98-107 [facility] Comment on above: Performed By: #### B MP ####[facility] Avokwfxxhg3217 [place] [address]Dr. Ivette Hernandez CO2 [Moles/Vol] 41.1 mmol/L Critically high 21.0-32.[address] [facility] Comment on above: Performed By: #### B MP ####[facility] Idpacipgtw153[address] [place], [place] [address]Dr. Ivette Hernandez Creatinine [Mass/Vol] 1.61 mg/dL Critically high 0.55-1.02 [facility] Comment on above: Performed By: #### B MP ####[facility] Xggtwzkkfk4215[address] [place], [place] [address]Dr. Ivette Hernandez EGFR-AF IVORIAN 38 mL/min/1.73m2 Critically low >=60 [facility] Comment on above: Performed By: #### B MP ####[facility] Iohmaznyev0629[address] [place], [place] [address]Dr. Ivette Hernandez EGFR-NON AF IVORIAN 31 mL/min/1.73m2 Critically low >=[address] [facility] Comment on above: Performed By: #### B MP ####[facility] Ufiexlaico7043 [place] [address]Dr. Ivette Hernandez Glucose [Mass/Vol] 124 mg/dL Critically high 74-106 T [facility] Comment on above: Performed By: #### B MP ####[facility] Hiaaauicvg8524[address] [place], [place] [address]Dr. Ivette Hernandez Potassium [Moles/Vol] 3.8 mmol/L Normal 3.5-5.1 [facility] Comment on above: Performed By: #### B MP ####[facility] Avyvekxbed6664 [place] [address]Dr. Ivette Hernandez Sodium [Moles/Vol] 143 mmol/L Normal 136-[address] [facility] Comment on above: Performed By: #### B MP ####[facility] Duttbrnpwk614[address] [place], [place] [address]Dr. Ivette Hernandez Urea nitrogen [Mass/Vol] 26.0 mg/dL Critically high 7.0-18.[address] [facility] Comment on above: Performed By: #### B MP ####[facility] Xshdvchmdc0911[address] [place], [place] [address]Dr. Ivette Hernandez Urea nitrogen/Creatinine [Mass ratio] 16.1 mg/mg Normal The [facility] Comment on above: Performed By: #### B MP ####[facility] Hbaiaihmmt810[address] [place], [place] [address]Dr. Ivette Hernandez BNPon 03-05-2022 Natriuretic peptide B (Bld) [Mass/Vol] 59398.0 pg/mL Critically high <=900.[address] [facility] Comment on above: Performed By: #### H STROPN, BNP, CMP ####[facility] Xyvipspgsf26[address] [place], [place] [address]Dr. Ivette Hernandez CBC AUTO DIFFon 03-05-2022 BASO # 0.0 103/ul Normal 0.0-0.[address] [facility] Comment on above: Performed By: #### C BC ####[facility] Twypofwsay1057[address] [place], [place] [address]Dr. Ivette David Basophils/100 WBC (Bld) 0.4 % Normal 0.2-2.[address] [facility] Comment on above: Performed By: #### C BC ####[facility] Imqrbqhfia3810[address] [place], [place] [address]Dr. Ivette David EO # 0.4 103/ul Normal 0.0-0.[address] [facility] Comment on above: Performed By: #### C BC ####[facility] Akyezqrtgg2315[address] [place], [place] [address]Dr. Ivette David Eosinophils/100 WBC (Bld) 3.1 % Normal 0.9-7.[address] [facility] Comment on above: Performed By: #### C BC ####[facility] Zawdvnomvz1734 [place] [address]Dr. Ivette Hernandez Erythrocyte distribution width (RBC) [Ratio] 14.5 % Normal 11.0-15.0 [facility] Comment on above: Performed By: #### C BC ####[facility] Jswkcrvzkl5250 [place] [address]DrJesse Ivette Hernandez Hematocrit (Bld) [Volume fraction] 25.3 % Critically low 36.0-48.0 [facility] Comment on above: Performed By: #### C BC ####[facility] Zjlihwuqox6410[address] [place], [place] [address]DrJesse Ivette Hernandez Hemoglobin (Bld) [Mass/Vol] 7.5 g/dL Critically low 12.0-16.0 [facility] Comment on above: Performed By: #### C BC ####[facility] Hxlbfyoqge4650[address] [place], [place] [address]DrJesse Ivette Hernandez IG # 0.08 10e3/ul Critically high 0.00-0.03 [facility] Comment on above: Performed By: #### C BC ####[facility] Xympbjcfeb9304[address] [place], [place] [address]DrJesse Ivette Hernandez IG % 0.7 % Critically high 0.0-0.5 [facility] Comment on above: Performed By: #### C BC ####[facility] Enmnnqnoob[address] [place], [place] [address]DrJesse Ivette David LYMPH # 1.7 103/ul Normal 1.2-3.[address] [facility] Comment on above: Performed By: #### C BC ####[facility] Rftquhbtce264[address] [place], [place] [address]DrJesse Ivette David Lymphocytes/100 WBC (Bld) 14.7 % Critically low 20.5-60.0 [facility] Comment on above: Performed By: #### C BC ####[facility] Vcvljkymfq0904[address] [place], [place] [address]DrJsese Cherjun Hernandez MANUAL DIFF REQ NO Normal [facility] Comment on above: Performed By: #### C BC ####[facility] Xpgcooupef5314 [place] [address]Dr. Ivette David MCH (RBC) [Entitic mass] 27.9 pg Normal 26.7-34.0 [facility] Comment on above: Performed By: #### C BC ####[facility] Traklabhrb6809 [place] [address]Dr. Ivette David MCHC (RBC) [Mass/Vol] 29.6 g/dL Critically low 29.9-35.2 [facility] Comment on above: Performed By: #### C BC ####[facility] Djzihmpfzy9700 [place] [address]Dr. Cherjun Hernandez MCV (RBC) [Entitic vol] 94.1 fL Normal 81.0-99.0 [facility] Comment on above: Performed By: #### C BC ####[facility] Pclekiuklq216[address] [place], [place] [address]DrJesse Hernandez MONO # 0.9 103/ul Critically high 0.3-0.8 [facility] Comment on above: Performed By: #### C BC ####[facility] Qrzqbzwlht0880[address] [place], [place] [address]Dr. Cherujn Hernandez Monocytes/100 WBC (Bld) 7.7 % Normal 1.7-12.0 [facility] Comment on above: Performed By: #### C BC ####[facility] Kdkvlbskcy[address] [place], [place] [address]DrJesse Hernandez NEUT # 8.3 103/ul Critically high 1.4-6.[address] [facility] Comment on above: Performed By: #### C BC ####[facility] Krwoehhwsx443[address] [place], [place] [address]DrJesse Hernandez Neutrophils/100 WBC (Bld) 73.4 % Normal 43.0-75.[address] [facility] Comment on above: Performed By: #### C BC ####[facility] Fnnjkoffuy45[address] [place], [place] [address]DrJesse Hernandez Platelet mean volume (Bld) [Entitic vol] 9.8 fL Normal 9.5-13.[address] [facility] Comment on above: Performed By: #### C BC ####[facility] Rldkywwqgi0315 [place], [place] [address]Ho. Ivette Hernandez PLT 256 103/ul Normal 150-[address] [facility] Comment on above: Performed By: #### C BC ####[facility] Peafgnlgrx5079 [place], [place] [address]Mn. Ivette Hernandez RBC 2.69 106/ul Critically low 4.20-5.[address] [facility] Comment on above: Performed By: #### C BC ####[facility] Wknloibzgh3036 [place], [place] [address]Kg. Ivette Hernandez WBC 11.3 103/ul Critically high 4.0-11.[address] [facility] Comment on above: Performed By: #### C BC ####[facility] Uzqctzakls1537 [place], [place] [address]Bt. Ivette Hernandez Covid-19 PCR (CVDTB)on SARS-CoV-2 (COVID-19) RNA MARRY+probe Ql (Unsp spec) Not detected Normal NOT DETECTED [facility] Comment on above: Result Comment: When [...] for this test is supported by the [employer] Operator of Health and Human Service's declaration that [...] be used). Performed By: #### C VDTBH ####[facility] Pulqiglhwu0912 [place] [address]Dr. Ivette Hernandez LACTATE/LACTIC ACIDon 2021 Lactate [Moles/Vol] 0.6 mmol/L Normal 0.4-1.9 [facility] Comment on above: Performed By: #### L ACT ####[facility] Dwfjdjtspm3843 [place] [address]Dr. Ivette Hernandez PROF 14(COMP METB)on 022 Albumin [Mass/Vol] 2.3 g/dL Critically low 3.4-5.0 Th [facility] Comment on above: Performed By: #### H STROPN, BNP, CMP ####[facility] Cxsobdkima7895 [place] [address]Dr. Ivette Hernandez Albumin/Globulin [Mass ratio] 0.5 {ratio} Normal [facility] Comment on above: Performed By: #### H STROPN, BNP, CMP ####[facility] Boawsgvmpy55[address] [place], [place] [address]Dr. Ivette Hernandez ALP [Catalytic activity/Vol] 72 U/L Normal 46-116 [facility] Comment on above: Performed By: #### H STROPN, BNP, CMP ####[facility] Dtfjrtckns1883 [place] [address]Dr. Ivette Hernandez ALT [Catalytic activity/Vol] 15 U/L Normal 14-59 [facility] Comment on above: Performed By: #### H STROPN, BNP, CMP ####[facility] Ezxvtwlftb7384 [place] [address]Dr. Ivette Hernandez Anion gap [Moles/Vol] 5.3 mmol/L Normal [facility] Comment on above: Performed By: #### H STROPN, BNP, CMP ####[facility] Zpfpvzzxyh9453 [place] [address]Dr. Ivette Hernandez AST [Catalytic activity/Vol] 16 U/L Normal 15-37 [facility] Comment on above: Performed By: #### H STROPN, BNP, CMP ####[facility] Jpslhfmvfe9859 [place] [address]Dr. Ivette Hernandez Bilirubin [Mass/Vol] 0.5 mg/dL Normal 0.2-1.0 [facility] Comment on above: Performed By: #### H STROPN, BNP, CMP ####[facility] Tsfajdwbuj35[address] [place], [place] [address]Dr. Ivette Hernandez Calcium [Mass/Vol] 7.8 mg/dL Critically low 8.5-10.[address] [facility] Comment on above: Performed By: #### H STROPN, BNP, CMP ####[facility] Bkeyfboqga7275[address] [place], [place] [address]Dr. Ivette Hernandez Chloride [Moles/Vol] 102 mmol/L Normal 98-107 [facility] Comment on above: Performed By: #### H STROPN, BNP, CMP ####[facility] Bfdiriltrr7125[address] [place], [place] [address]Dr. Ivette Hernandez CO2 [Moles/Vol] 38.3 mmol/L Critically high 21.0-32.0 [facility] Comment on above: Performed By: #### H STROPN, BNP, CMP ####[facility] Orseqlxaji9[address] [place], [place] [address]Dr. Ivette Hernandez Creatinine [Mass/Vol] 1.50 mg/dL Critically high 0.55-1.02 [facility] Comment on above: Performed By: #### H STROPN, BNP, CMP ####[facility] Ixtwwktpbv75[address] [place], [place] [address]Dr. Ivette Hernandez EGFR-AF IVORIAN 41 mL/min/1.73m2 Critically low >=[address] [facility] Comment on above: Performed By: #### H STROPN, BNP, CMP ####[facility] Tgczumuvlz093[address] [place], [place] [address]Dr. Ivette Hernandez EGFR-NON AF IVORIAN 34 mL/min/1.73m2 Critically low >=[address] [facility] Comment on above: Performed By: #### H STROPN, BNP, CMP ####[facility] Huslfeizne6027[address] [place], [place] [address]Dr. Ivette Hernandez Globulin (S) [Mass/Vol] 4.3 g/dL Normal [facility] Comment on above: Performed By: #### H STROPN, BNP, CMP ####[facility] Hjebqhoxre4717 [place] [address]Dr. Ivette Hernandez Glucose [Mass/Vol] 138 mg/dL Critically high 74-106 T [facility] Comment on above: Performed By: #### H STROPN, BNP, CMP ####[facility] Mpbjrbjjgg5627 [place] [address]Dr. Ivette Hernandez Potassium [Moles/Vol] 3.6 mmol/L Normal 3.5-5.1 [facility] Comment on above: Performed By: #### H STROPN, BNP, CMP ####[facility] Zumoyfmzft0521 [place] [address]Dr. Ivette Hernandez Protein [Mass/Vol] 6.6 g/dL Normal 6.4-8.2 [facility] Comment on above: Performed By: #### H STROPN, BNP, CMP ####[facility] Xibpwvajzm05[address] [place], [place] [address]Dr. Ivette Hernandez Sodium [Moles/Vol] 142 mmol/L Normal 136-145 [facility] Comment on above: Performed By: #### H STROPN, BNP, CMP ####[facility] Wpkgmahjhz6389 [place] [address]Dr. Ivette Hernandez Urea nitrogen [Mass/Vol] 24.0 mg/dL Critically high 7.0-18.0 [facility] Comment on above: Performed By: #### H STROPN, BNP, CMP ####[facility] Mivtwgnykb4354 [place] [address]Dr. Ivette Hernandez Urea nitrogen/Creatinine [Mass ratio] 16.0 mg/mg Normal [facility] Comment on above: Performed By: #### H STROPN, BNP, CMP ####[facility] Hnxenbeiop5726 [place] [address]Dr. Ivette Hernandez TROPONIN, HIGH SENSITIVITYon 03-05-2022 HSTROP 18.0 pg/mL Normal 4.0-51.3 [facility] Comment on above: Result Comment: CUT- OFF POINTS HAVE BEEN ESTABLISHED BASED ON THE FOURTH UNIVERSAL DEFINITIONS OF MYOCARDIALINFARCTION. THE UPPER REFERENCE LIMIT (URL) OF TROPONIN, DEFINED THE 99TH PERCENTILE OFcTnI DISTRIBUTION IN A REFERENCE POPULATION, HAS BEEN CONFIRMED THE DECISION THRESHOLDFOR WA DIAGNOSIS. Performed By: #### H STROPN, BNP, CMP ####[facility] Uvmlelhpcm5091 [place] [address]Dr. Ivette Hernandez XR CHEST 1 Von 03-05-2022 XR CHEST 1 V Normal [facility] CBC AUTO DIFFon 02-27-2022 BASO # 0.0 103/ul Normal 0.0-0.1 [facility] Comment on above: Performed By: #### C BC ####[facility] Lzzhwzmnao1708 [place] [address]Dr. Ivette Hernandez Basophils/100 WBC (Bld) 0.2 % Normal 0.2-2.0 [facility] Comment on above: Performed By: #### C BC ####[facility] Ghejgguicc309[address] [place], [place] [address]Dr. Ivette Hernandez EO # 0.2 103/ul Normal 0.0-0.7 [facility] Comment on above: Performed By: #### C BC ####[facility] Rrmknacknv1143 [place] [address]Dr. Ivette Hernandez Eosinophils/100 WBC (Bld) 1.9 % Normal 0.9-7.0 [facility] Comment on above: Performed By: #### C BC ####[facility] Cxditugjhd8448 [place] [address]Dr. Ivette Hernandez Erythrocyte distribution width (RBC) [Ratio] 14.0 % Normal 11.0-15.0 [facility] Comment on above: Performed By: #### C BC ####[facility] Ixucfhunkd1424 [place] [address]Dr. Ivette Hernandez Hematocrit (Bld) [Volume fraction] 28.7 % Critically low 36.0-48.0 [facility] Comment on above: Performed By: #### C BC ####[facility] Gjwxwgwsqu3852 [place] [address]Dr. Ivette Hernandez Hemoglobin (Bld) [Mass/Vol] 8.8 g/dL Critically low 12.0-16.0 [facility] Comment on above: Performed By: #### C BC ####[facility] Cfunudmbdl1209 [place] [address]DrJesse Hernandez IG # 0.05 10e3/ul Critically high 0.00-0.03 [facility] Comment on above: Performed By: #### C BC ####[facility] Aeuvafturo1701 [place] [address]DrJesse Hernandez IG % 0.5 % Normal 0.0-0.5 [facility] Comment on above: Performed By: #### C BC ####[facility] Wcvgyyzlbl97[address] [place], [place] [address]DrJesse Hernandez LYMPH # 2.1 103/ul Normal 1.2-3.[address] [facility] Comment on above: Performed By: #### C BC ####[facility] Evzmnvctft8770[address] [place], [place] [address]DrJesse Hernandez Lymphocytes/100 WBC (Bld) 21.3 % Normal 20.5-60.0 [facility] Comment on above: Performed By: #### C BC ####[facility] Rxdtkgrnde8822[address] [place], [place] [address]DrJesse Hernandez MANUAL DIFF REQ NO Normal [facility] Comment on above: Performed By: #### C BC ####[facility] Havptlhpqy5766[address] [place], [place] [address]DrJesse Hernandez MCH (RBC) [Entitic mass] 27.6 pg Normal 26.7-34.0 [facility] Comment on above: Performed By: #### C BC ####[facility] Gcyfpohrfw14[address] [place], [place] [address]DrJesse Hernandez MCHC (RBC) [Mass/Vol] 30.7 g/dL Normal 29.9-35.[address] [facility] Comment on above: Performed By: #### C BC ####[facility] Wdwcrtumyx0965 [place] [address]DrJesse Hernandez MCV (RBC) [Entitic vol] 90.0 fL Normal 81.0-99.0 [facility] Comment on above: Performed By: #### C BC ####[facility] Utskltmxmc2338 [place] [id number]. Ivette Hernandez MONO # 0.6 103/ul Normal 0.3-0.[address] [facility] Comment on above: Performed By: #### C BC ####[facility] Quecmnynjc7293 [place] [phone]. Ivette Hernandez Monocytes/100 WBC (Bld) 6.5 % Normal 1.7-12.0 [facility] Comment on above: Performed By: #### C BC ####[facility] Qtckbrwhar5922 [place] [address]Dr. Ivette Hernandez NEUT # 6.7 103/ul Critically high 1.4-6.5 [facility] Comment on above: Performed By: #### C BC ####[facility] Vrdrmsnoqy0659 [place] [address]Dr. Ivette Hernandez Neutrophils/100 WBC (Bld) 69.6 % Normal 43.0-75.[address] [facility] Comment on above: Performed By: #### C BC ####[facility] Zfmsnhrxkh5390[address] [place], [place] [address]Dr. Ivette Hernandez Platelet mean volume (Bld) [Entitic vol] 9.6 fL Normal 9.5-13.5 [facility] Comment on above: Performed By: #### C BC ####[facility] Jeebheqygg40[address] [place] [address]Dr. Ivette Hernandez PLT 236 103/ul Normal 150-[address] [facility] Comment on above: Performed By: #### C BC ####[facility] Moduwrqbmg9257 [place] [id number]. Ivette Hernandez RBC 3.19 106/ul Critically low 4.20-5.[address] [facility] Comment on above: Performed By: #### C BC ####[facility] Phwcipwwzp8660 [place] [id number]. Ivette Hernandez WBC 9.6 103/ul Normal 4.0-11.[address] [facility] Comment on above: Performed By: #### C BC ####[facility] Wnaxehihxh33[address] [place], [place] [address]Dr. Ivette Hernandez GI PANEL (PCR)on 02-27-2022 Adenovirus F 40/41 Not detected Normal NOT DETECTED Th [facility] Comment on above: Performed By: #### G IPANEL ####[facility] Tycpmkbuod354[address] [place], [place] [address]Dr. Ivette Hernandez Astrovirus Not detected Normal NOT DETECTED The [facility] Comment on above: Performed By: #### G IPANEL ####[facility] Afbdrfzivz385[address] [place], [place] [address]Dr. Ivette Hernandez C. Diff toxin A/B Detected Critically abnormal NOT DETECTED The [facility] Comment on above: Performed By: #### G IPANEL ####[facility] Oitvndzsgf8010[address] [place], [place] [address]Dr. Ivette Hernandez Campylobacter Not detected Normal NOT DETECTED The [facility] Comment on above: Performed By: #### G IPANEL ####[facility] Hayrznctgr0736[address] [place], [place] [address]Dr. Ivette Hernandez Cryptosporidium Not detected Normal NOT DETECTED The [facility] Comment on above: Performed By: #### G IPANEL ####[facility] Wsqrmnosfx787468 [address] [place], [place] [address]Dr. Ivette Hernandez Cyclos. Cayetanensis Not detected Normal NOT DETECTED The [facility] Comment on above: Performed By: #### G IPANEL ####[facility] Kxplyklrfo474[address] [place], [place] [address]Dr. Ivette Hernandez E. Coli O157 Not Applicable Normal Not Applicable [facility] Comment on above: Performed By: #### G IPANEL ####[facility] Uvhoqwioaf313168 [address] [place], [place] [address]Dr. Ivette Hernandez E. histolytica Not detected Normal NOT DETECTED The [facility] Comment on above: Performed By: #### G IPANEL ####[facility] Xlwakcnrpn5[address] [place], [place] [address]Dr. Ivette Hernandez EAEC Not detected Normal NOT DETECTED The [facility] Comment on above: Performed By: #### G IPANEL ####[facility] Snvwgebuvf9360 [place] [address]Dr. Ivette Hernandez EIEC Not detected Normal NOT DETECTED The [facility] Comment on above: Performed By: #### G IPANEL ####[facility] Xtjoadkdbk2192 [place] [address]Dr. Ivette Hernandez EPEC Not detected Normal NOT DETECTED The [facility] Comment on above: Performed By: #### G IPANEL ####[facility] Zuqhqxtbim924[address] [place], [place] [address]Dr. Ivette Hernandez ETEC Not detected Normal NOT DETECTED The [facility] Comment on above: Performed By: #### G IPANEL ####[facility] Awvhffsbip987068 [address] [place], [place] [address]Dr. Ivette Hernandez G. Lamblia Not detected Normal NOT DETECTED The [facility] Comment on above: Performed By: #### G IPANEL ####[facility] Dkqakzrfel030368 [address] [place], [place] [address]Dr. Ivette [facility] CONTROLS PASSED Normal [facility] Comment on above: Performed By: #### G IPANEL ####[facility] Pugopqbiki3737[address] [place], [place] [address]Dr. Ivette [facility] HEADER GI PANEL BACTERIA Normal T [facility] Comment on above: Performed By: #### G IPANEL ####[facility] Beotxueflf102268 [address] [place], [place] [address]Dr. Ivette [facility] ECOLI GI PANEL DIARRHEAGEN IC E.COLI / SHIGELLA Normal The [facility] Comment on above: Performed By: #### G IPANEL ####[facility] Vaakpeplxz139268 [address] [place], [place] [address]Dr. [facility] INFO SEE BELOW Normal The [facility] Comment on above: Result Comment: EAEC - Enteroaggregative E. Coli EPEC- Enteropathogenic E. Coli ETEC- Enterotoxigenic E. Coli lt/st STEC- Shigella-like toxin-producing E. Coli stx1/stx2 EIEC- Shigella/Enteroinvasive E. Coli Performed By: #### G IPANEL ####[facility] Fgfyqmvrqf5936[address] [place], [place] [address]Dr. Cherjun Hernandez GIPNLHD PARASITES GI PANEL PARASITES Normal The [facility] Comment on above: Performed By: #### G IPANEL ####[facility] Fdpthdhgwr1065[address] [place], [place] [address]Dr. Cherjun Hernandez GIPNLHD VIRUS GI PANEL VIRUSES Normal The [facility] Comment on above: Performed By: #### G IPANEL ####[facility] Sczkfswtzm5644[address] [place], [place] [address]Dr. Cherjun Hernandez Norovirus GI/GII Not detected Normal NOT DETECTED The [facility] Comment on above: Performed By: #### G IPANEL ####[facility] Blvoyblypo0915[address] [place], [place] [address]Dr. Ivette Hernandez P. Shigelloides Not detected Normal NOT DETECTED The [facility] Comment on above: Performed By: #### G IPANEL ####[facility] Ritrfagshm248968 [address] [place], [place] [address]Dr. Cherjun Hernandez Rotavirus A Not detected Normal NOT DETECTED The [facility] Comment on above: Performed By: #### G IPANEL ####[facility] Iqajvywswl6501[address] [place], [place] [address]Dr. Ivette Hernandez Salmonella Not detected Normal NOT DETECTED The [facility] Comment on above: Performed By: #### G IPANEL ####[facility] Npfbtrrfet4210[address] [place], [place] [address]Dr. Ivette Hernandez Sapovirus Not detected Normal NOT DETECTED The [facility] Comment on above: Performed By: #### G IPANEL ####[facility] Zzszfdzmym024468 [address] [place], [place] [address]Dr. Ivette Hernandez STEC Not detected Normal NOT DETECTED The [facility] Comment on above: Performed By: #### G IPANEL ####[facility] Qradycehcv1616[address] [place], [place] [address]Dr. Ivette Hernandez Vibrio Not detected Normal NOT DETECTED The [facility] Comment on above: Performed By: #### G IPANEL ####[facility] Cghwyawitf8299[address] [place], [place] [address]Dr. Ivette Hernandez Vibrio Cholera Not detected Normal NOT DETECTED [facility] Comment on above: Performed By: #### G IPANEL ####[facility] Kkhyllyjuo5926 [place] [address]Dr. Ivette Hernandez Y. Enterocolitica Not detected Normal NOT DETECTED [facility] Comment on above: Performed By: #### G IPANEL ####[facility] Faenowwksd819768 [address] [place], [place] [address]Dr. Ivette Hernandez OCC BLD IMMUNO SCREENon 02-01 OCCULT BLOOD Negative Normal NEGATIVE [facility] Comment on above: Performed By: #### O BSCRN ####[facility] Rddrsdsriv430368 [address] [place], [place] [address]Dr. Ivette Hernandez PROF 14(COMP METB)on 022 Albumin [Mass/Vol] 2.4 g/dL Critically low 3.4-5.0 [facility] Comment on above: Performed By: #### C MP ####[facility] Ggndihzhhr712168 [address] [place], [place] [address]Dr. Ivette Hernandez Albumin/Globulin [Mass ratio] 0.6 {ratio} Normal [facility] Comment on above: Performed By: #### C MP ####[facility] Uxcskomiyk7209[address] [place], [place] [address]Dr. Ivette Hernandez ALP [Catalytic activity/Vol] 68 U/L Normal 46-116 [facility] Comment on above: Performed By: #### C MP ####[facility] Vwcoaoijdj5378[address] [place], [place] [address]Dr. Ivette Hernandez ALT [Catalytic activity/Vol] 12 U/L Critically low 14-59 [facility] Comment on above: Performed By: #### C MP ####[facility] Pyywgphqbq2006[address] [place], [place] [address]Dr. Ivette Hernandez Anion gap [Moles/Vol] 10.3 mmol/L Normal [facility] Comment on above: Performed By: #### C MP ####[facility] Clajlyayew017268 [address] [place], [place] [address]Dr. Ivette Hernandez AST [Catalytic activity/Vol] 15 U/L Normal 15-37 [facility] Comment on above: Performed By: #### C MP ####[facility] Lsbtbexutq4625 [place] [address]Dr. Ivette David Bilirubin [Mass/Vol] 0.4 mg/dL Normal 0.2-1.0 [facility] Comment on above: Performed By: #### C MP ####[facility] Uesgobhggu2294 [place] [address]Dr. Cherjun David Calcium [Mass/Vol] 7.5 mg/dL Critically low 8.5-10.1 Th [facility] Comment on above: Performed By: #### C MP ####[facility] Mvnppeovxf281368 [address] [place], [place] [address]Dr. Cherjun David Chloride [Moles/Vol] 102 mmol/L Normal 98-107 [facility] Comment on above: Performed By: #### C MP ####[facility] Aatltwoeew247968 [address] [place], [place] [address]Dr. Cherjun David CO2 [Moles/Vol] 33.8 mmol/L Critically high 21.0-32.0 [facility] Comment on above: Performed By: #### C MP ####[facility] Ixxwswjusw939[address] [place], [place] [address]Dr. Ivette David Creatinine [Mass/Vol] 1.35 mg/dL Critically high 0.55-1.02 [facility] Comment on above: Performed By: #### C MP ####[facility] Icpmxstrkz3609[address] [place], [place] [address]Dr. Cherjun David EGFR-AF IVORIAN 47 mL/min/1.73m2 Critically low >=[address] [facility] Comment on above: Performed By: #### C MP ####[facility] Lnubpbelxe1469[address] [place], [place] [address]Dr. Ivette Hernandez EGFR-NON AF IVORIAN 38 mL/min/1.73m2 Critically low >=[address] [facility] Comment on above: Performed By: #### C MP ####[facility] Avamjvnjqv0467[address] [place], [place] [address]Dr. Ivette Hernandez Globulin (S) [Mass/Vol] 4.0 g/dL Normal [facility] Comment on above: Performed By: #### C MP ####[facility] Cqvcfytrir2526 [place] [address]Dr. Ivette Hernandez Glucose [Mass/Vol] 142 mg/dL Critically high 74-106 T [facility] Comment on above: Performed By: #### C MP ####[facility] Gtbvxffkbz1697 [place] [address]Dr. Ivette Hernandez Potassium [Moles/Vol] 3.1 mmol/L Critically low 3.5-5.1 [facility] Comment on above: Performed By: #### C MP ####[facility] Bijpnlnzan8465[address] [place], [place] [address]Dr. Ivette Hernandez Protein [Mass/Vol] 6.4 g/dL Normal 6.4-8.2 [facility] Comment on above: Performed By: #### C MP ####[facility] Turpcrvkbj0585[address] [place], [place] [address]Dr. Ivette Hernandez Sodium [Moles/Vol] 143 mmol/L Normal 136-145 [facility] Comment on above: Performed By: #### C MP ####[facility] Neynngsftp072568 [address] [place], [place] [address]Dr. Ivette Hernandez Urea nitrogen [Mass/Vol] 32.0 mg/dL Critically high 7.0-18.0 [facility] Comment on above: Performed By: #### C MP ####[facility] Jinetngjnr0737[address] [place], [place] [address]Dr. Ivette Hernandez Urea nitrogen/Creatinine [Mass ratio] 23.7 mg/mg Normal [facility] Comment on above: Performed By: #### C MP ####[facility] Ftjzooywbv1750[address] [place], [place] [address]Dr. Ivette Hernandez CBC AUTO DIFFon 02-26-2022 BASO # 0.0 103/ul Normal 0.0-0.1 [facility] Comment on above: Performed By: #### C BC ####[facility] Xdgfpwbvgx1629[address] [place], [place] [address]Dr. Ivette Hernandez Basophils/100 WBC (Bld) 0.0 % Critically low 0.2-2.[address] [facility] Comment on above: Performed By: #### C BC ####[facility] Ydlokoyydr293468 [address] [place], [place] [address]Dr. Ivette Hernandez EO # 0.0 103/ul Normal 0.0-0.[address] [facility] Comment on above: Performed By: #### C BC ####[facility] Kfpaautube173868 [address] [place], [place] [address]Dr. Ivette Hernandez Eosinophils/100 WBC (Bld) 0.0 % Critically low 0.9-7.[address] [facility] Comment on above: Performed By: #### C BC ####[facility] Ukenwjkzrs244[address] [place], [place] [address]Dr. Ivette Hernandez Erythrocyte distribution width (RBC) [Ratio] 13.9 % Normal 11.0-15.[address] [facility] Comment on above: Performed By: #### C BC ####[facility] Jegffkxeda325668 [address] [place], [place] [address]Dr. Ivette Hernandez Hematocrit (Bld) [Volume fraction] 25.9 % Critically low 36.0-48.0 [facility] Comment on above: Performed By: #### C BC ####[facility] Arwkbynefz819168 [address] [place], [place] [address]Dr. Ivette Hernandez Hemoglobin (Bld) [Mass/Vol] 8.2 g/dL Critically low 12.0-16.[address] [facility] Comment on above: Performed By: #### C BC ####[facility] Vwzmkllcfn176368 [address] [place], [place] [address]Dr. Ivette Hernandez IG # 0.05 10e3/ul Critically high 0.00-0.[address] [facility] Comment on above: Performed By: #### C BC ####[facility] Buucmbqjia3465[address] [place], [place] [address]Dr. Ivette Hernandez IG % 0.9 % Critically high 0.0-0.[address] [facility] Comment on above: Performed By: #### C BC ####[facility] Uuegfikkmg887168 [address] [place], [place] [address]Dr. Ivette Hernandez LYMPH # 1.0 103/ul Critically low 1.2-3.[address] [facility] Comment on above: Performed By: #### C BC ####[facility] Cvuopwohjk5196 [place] [address]Dr. Cherjun Hernandez Lymphocytes/100 WBC (Bld) 17.4 % Critically low 20.5-60.[address] [facility] Comment on above: Performed By: #### C BC ####[facility] Mvfyjxincn5477 [place] [address]DrJesse Hernandez MANUAL DIFF REQ NO Normal [facility] Comment on above: Performed By: #### C BC ####[facility] Rvkoteeang7907[address] [place], [place] [address]DrJesse Hernandez MCH (RBC) [Entitic mass] 28.3 pg Normal 26.7-34.[address] [facility] Comment on above: Performed By: #### C BC ####[facility] Ehgvxxjiom9984[address] [place], [place] [address]Dr. Ivette Hernandez MCHC (RBC) [Mass/Vol] 31.7 g/dL Normal 29.9-35.[address] [facility] Comment on above: Performed By: #### C BC ####[facility] Qzgvuhrobt5330[address] [place], [place] [address]DrJesse Hernandez MCV (RBC) [Entitic vol] 89.3 fL Normal 81.0-99.[address] [facility] Comment on above: Performed By: #### C BC ####[facility] Nycdwnkkyd9175[address] [place], [place] [address]DrJesse Hernandez MONO # 0.2 103/ul Critically low 0.3-0.[address] [facility] Comment on above: Performed By: #### C BC ####[facility] Jdmwwdvbzh1386[address] [place], [place] [address]DrJesse Hernandez Monocytes/100 WBC (Bld) 3.6 % Normal 1.7-12.[address] [facility] Comment on above: Performed By: #### C BC ####[facility] Fqnantjuhm028[address] [place], [place] [address]Dr. Ivette eHrnandez NEUT # 4.6 103/ul Normal 1.4-6.[address] [facility] Comment on above: Performed By: #### C BC ####[facility] Lbvcmjnile3416 [place] [address]Dr. Ivette Hernandez Neutrophils/100 WBC (Bld) 78.1 % Critically high 43.0-75.[address] [facility] Comment on above: Performed By: #### C BC ####[facility] Ldyjtjedkv4020 [place] [address]Dr. Ivette Hernandez Platelet mean volume (Bld) [Entitic vol] 9.5 fL Normal 9.5-13.[address] [facility] Comment on above: Performed By: #### C BC ####[facility] Qptnorlxzl9576 [place] [address]Dr. Ivette Hernandez PLT 195 103/ul Normal 150-[address] [facility] Comment on above: Performed By: #### C BC ####[facility] Dionwdwfpm3260[address] [place], [place] [address]Dr. Ivette Hernandez RBC 2.90 106/ul Critically low 4.20-5.[address] [facility] Comment on above: Performed By: #### C BC ####[facility] Cbdhjmzoim817[address] [place], [place] [address]Dr. Ivette Hernandez WBC 5.8 103/ul Normal 4.0-11.0 [facility] Comment on above: Performed By: #### C BC ####[facility] Shlshteput[address] [place], [place] [address]Dr. Ivette Hernandez ECHOCARDIO M/2D COMPLETEon 1 ECHOCARDIO M/2D COMPLETE Normal [facility] PROF 14(COMP METB)on 022 Albumin [Mass/Vol] 2.3 g/dL Critically low 3.4-5.[address] [facility] Comment on above: Performed By: #### C MP ####[facility] Bmuicokfhx4389[address] [place], [place] [address]Dr. Ivette Hernandez Albumin/Globulin [Mass ratio] 0.6 {ratio} Normal [facility] Comment on above: Performed By: #### C MP ####[facility] Xloayuomwp3848 [place] [address]Dr. Ivette Hernandez ALP [Catalytic activity/Vol] 67 U/L Normal 46-116 [facility] Comment on above: Performed By: #### C MP ####[facility] Qungdavsvz3777 [place] [id number]. Ivette Hernandez ALT [Catalytic activity/Vol] 15 U/L Normal 14-[address] [facility] Comment on above: Performed By: #### C MP ####[facility] Iqqzeltzcm0035 [place] [address]Dr. Ivette Hernandez Anion gap [Moles/Vol] 7.6 mmol/L Normal [facility] Comment on above: Performed By: #### C MP ####[facility] Ypwlxjsvby9445[address] [place], [place] [address]Dr. Ivette Hernandez AST [Catalytic activity/Vol] 12 U/L Critically low 15-37 [facility] Comment on above: Performed By: #### C MP ####[facility] Wmbecpemxb6330 [place] [address]Dr. Ivette Hernandez Bilirubin [Mass/Vol] 0.3 mg/dL Normal 0.2-1.0 [facility] Comment on above: Performed By: #### C MP ####[facility] Qlnhmtctxu339[address] [place], [place] [address]Dr. Ivette Hernandez Calcium [Mass/Vol] 6.3 mg/dL Critically low 8.5-10.1 Th [facility] Comment on above: Performed By: #### C MP ####[facility] Xwandiijnu6880 [place] [address]Dr. Ivette Hernandez Chloride [Moles/Vol] 104 mmol/L Normal 98-[address] [facility] Comment on above: Performed By: #### C MP ####[facility] Qmjrbplyjv2486[address] [place], [place] [address]Dr. Ivette Hernandez CO2 [Moles/Vol] 34.8 mmol/L Critically high 21.0-32.[address] [facility] Comment on above: Performed By: #### C MP ####[facility] Ydxoochtsb4557 [place] [id number]. Ivette Hernandez Creatinine [Mass/Vol] 1.30 mg/dL Critically high 0.55-1.02 [facility] Comment on above: Performed By: #### C MP ####[facility] Hhonbpeclw2530 [place] [id number]. Ivette Hernandez EGFR-AF IVORIAN 49 mL/min/1.73m2 Critically low >=60 [facility] Comment on above: Performed By: #### C MP ####[facility] Jaicpkdwcf7013 [place] [id number]. Ivette Hernandez EGFR-NON AF IVORIAN 40 mL/min/1.73m2 Critically low >=60 [facility] Comment on above: Performed By: #### C MP ####[facility] Slfljgazta3498 [place] [address]Dr. Ivette Hernandez Globulin (S) [Mass/Vol] 4.1 g/dL Normal [facility] Comment on above: Performed By: #### C MP ####[facility] Pglwmbisie2683 [place] [address]Dr. Ivette Hernandez Glucose [Mass/Vol] 130 mg/dL Critically high 74-106 [facility] Comment on above: Performed By: #### C MP ####[facility] Otiyjeayqx2275 [place] [id number]. Ivette Hernandez Potassium [Moles/Vol] 3.4 mmol/L Critically low 3.5-5.[address] [facility] Comment on above: Performed By: #### C MP ####[facility] Aiiycbbclg8527 [place] [address]Dr. Ivette Hernandez Protein [Mass/Vol] 6.4 g/dL Normal 6.4-8.[address] [facility] Comment on above: Performed By: #### C MP ####[facility] Lectmhmnqo0538 [place] [id number]. Ivette Hernandez Sodium [Moles/Vol] 143 mmol/L Normal 136-145 [facility] Comment on above: Performed By: #### C MP ####[facility] Ahqstgcgng06[address] [place], [place] [address]Dr. Ivette Hernandez Urea nitrogen [Mass/Vol] 24.0 mg/dL Critically high 7.0-18.[address] [facility] Comment on above: Performed By: #### C MP ####[facility] S[address]ufqkflv[address] [place], [place] [address]Dr. Ivette Hernandez Urea nitrogen/Creatinine [Mass ratio] 18.5 mg/mg Normal [facility] Comment on above: Performed By: #### C MP ####[facility] Dxeijcqzfg214[address] [place], [place] [address]Dr. Ivette Hernandez US KIDNEYS BLADDERon 022 US KIDNEYS BLADDER Normal [facility] BNPon 02-25-2022 Natriuretic peptide B (Bld) [Mass/Vol] 33640.0 pg/mL Critically high <=900.[address] [facility] Comment on above: Performed By: #### M G, BMP, BNP ####[facility] Ajnsepamll[address] [place], [place] [address]Dr. Ivette Hernandez CBC AUTO DIFFon 02-25-2022 BASO # 0.0 103/ul Normal 0.0-0.[address] [facility] Comment on above: Performed By: #### C BC ####[facility] Icpggrqjnd49[address] [place], [place] [address]Dr. Ivette Hernandez Basophils/100 WBC (Bld) 0.4 % Normal 0.2-2.[address] [facility] Comment on above: Performed By: #### C BC ####[facility] Lmddkozess06[address] [place], [place] [address]Dr. Ivette Hernandez EO # 0.1 103/ul Normal 0.0-0.[address] [facility] Comment on above: Performed By: #### C BC ####[facility] Mtblzgvbep6774[address] [place], [place] [address]Dr. Ivette Hernandez Eosinophils/100 WBC (Bld) 0.8 % Critically low 0.9-7.[address] [facility] Comment on above: Performed By: #### C BC ####[facility] Jajgfjxtiu1057[address] [place], [place] [address]Dr. Ivette Hernandez Erythrocyte distribution width (RBC) [Ratio] 14.3 % Normal 11.0-15.[address] [facility] Comment on above: Performed By: #### C BC ####[facility] Rgeiahywah230[address] [place], [place] [address]Dr. Ivette Hernandez Hematocrit (Bld) [Volume fraction] 29.3 % Critically low 36.0-48.[address] [facility] Comment on above: Performed By: #### C BC ####[facility] Ovisqkbjec8[address] [place], [place] [address]Dr. Ivette Hernandez Hemoglobin (Bld) [Mass/Vol] 9.2 g/dL Critically low 12.0-16.[address] [facility] Comment on above: Performed By: #### C BC ####[facility] Jxrstcjwmu688[address] [place], [place] [address]Dr. Ivette Hernandez IG # 0.04 10e3/ul Critically high 0.00-0.03 [facility] Comment on above: Performed By: #### C BC ####[facility] Awcvdteoue4101[address] [place], [place] [address]Dr. Ivette Hernandez IG % 0.4 % Normal 0.0-0.[address] [facility] Comment on above: Performed By: #### C BC ####[facility] Puoxtlmnda160[address] [place], [place] [address]Dr. Ivette Hernandez LYMPH # 1.9 103/ul Normal 1.2-3.[address] [facility] Comment on above: Performed By: #### C BC ####[facility] Xrkpefiigm4457[address] [place], [place] [address]Dr. Ivette Hernandez Lymphocytes/100 WBC (Bld) 17.5 % Critically low 20.5-60.[address] [facility] Comment on above: Performed By: #### C BC ####[facility] Ivchcsvwhw824168 [address] [place], [place] [address]Dr. Ivette Hernandez MANUAL DIFF REQ NO Normal [facility] Comment on above: Performed By: #### C BC ####[facility] Fznsvnmfse2178[address] [place], [place] [address]Dr. Ivette Hernandez MCH (RBC) [Entitic mass] 28.6 pg Normal 26.7-34.[address] [facility] Comment on above: Performed By: #### C BC ####[facility] [address]fiftepzg[address] [place] [address]Dr. Ivette Hernandez MCHC (RBC) [Mass/Vol] 31.4 g/dL Normal 29.9-35.[address] [facility] Comment on above: Performed By: #### C BC ####[facility] Ndbrfuohww[address] [place] [address]Dr. Ivette David MCV (RBC) [Entitic vol] 91.0 fL Normal 81.0-99.[address] [facility] Comment on above: Performed By: #### C BC ####[facility] Hevzifrgss[address] [place] [address]Dr. Ivette David MONO # 0.6 103/ul Normal 0.3-0.[address] [facility] Comment on above: Performed By: #### C BC ####[facility] Ntvahntpvg101[address] [place], [place] [address]Dr. Cherjun Hernandez Monocytes/100 WBC (Bld) 5.4 % Normal 1.7-12.[address] [facility] Comment on above: Performed By: #### C BC ####[facility] Sdljvffhwk9[address] [place], [place] [address]Dr. Ivette Hernandez NEUT # 8.1 103/ul Critically high 1.4-6.[address] [facility] Comment on above: Performed By: #### C BC ####[facility] Kwpfwcewjx65[address] [place], [place] [address]Dr. Cherjun Hernandez Neutrophils/100 WBC (Bld) 75.5 % Critically high 43.0-75.[address] [facility] Comment on above: Performed By: #### C BC ####[facility] Jnrmgwuasr119[address] [place], [place] [address]Dr. Cherjun Hernandez Platelet mean volume (Bld) [Entitic vol] 9.7 fL Normal 9.5-13.[address] [facility] Comment on above: Performed By: #### C BC ####[facility] Rvqticarje[address] [place] [id number]. Ivette Hernandez PLT 242 103/ul Normal 150-[address] [facility] Comment on above: Performed By: #### C BC ####[facility] Pkovpatozg7177 [place] [id number]. Ivette Hernandez RBC 3.22 106/ul Critically low 4.20-5.40 [facility] Comment on above: Performed By: #### C BC ####[facility] Bqqhlnolkr38[address] [place] [address]Dr. Ivette Hernandez WBC 10.8 103/ul Normal 4.0-11.0 [facility] Comment on above: Performed By: #### C BC ####[facility] Gjbyxrwlng[address] [place], [place] [address]Dr. Ivette Hernandez MAGNESIUMon 02-25-2022 Magnesium [Mass/Vol] 1.3 mg/dL Critically low 1.8-2.4 [facility] Comment on above: Performed By: #### M Rosi BMP, BNP ####[facility] Pvzmzcdjmv44[address] [place], [place] [address]Dr. Ivette Hernandez POINT OF CARE GLUCOSEon 02-01 Glucose [Mass/Vol] 191 mg/dL Critically high 74-106 T [facility] Comment on above: Performed By: #### P OCGLUC ####[facility] Dndyngjenj3147[address] [place], [place] [address]Dr. Ivette Hernandez PROF CHEM 8 (BAS METB)on Anion gap [Moles/Vol] 7.7 mmol/L Normal [facility] Comment on above: Performed By: #### M G, BMP, BNP ####[facility] Moablrtghz3917[address] [place], [place] [address]Dr. Ivette Hernandez Calcium [Mass/Vol] 6.4 mg/dL Critically low 8.5-10.1 Th [facility] Comment on above: Performed By: #### M G, BMP, BNP ####[facility] Ypirnepdbh00[address] [place], [place] [address]Dr. Ivette Hernandez Chloride [Moles/Vol] 105 mmol/L Normal 98-107 [facility] Comment on above: Performed By: #### Chris Aranda BMP, BNP ####[facility] Ebdktqnukx9192 [place] [address]Dr. Ivette Hernandez CO2 [Moles/Vol] 37.4 mmol/L Critically high 21.0-32.0 [facility] Comment on above: Performed By: #### Chris Aranda BMP, BNP ####[facility] Wgmavzvimn9129[address] [place], [place] [address]Dr. Ivette Hernandez Creatinine [Mass/Vol] 1.41 mg/dL Critically high 0.55-1.02 [facility] Comment on above: Performed By: #### Chris Aranda BMP, BNP ####[facility] Ueglyqrpgq7038[address] [place], [place] [address]Dr. Ivette Hernandez EGFR-AF IVORIAN 44 mL/min/1.73m2 Critically low >=60 [facility] Comment on above: Performed By: #### Chris Aranda BMP, BNP ####[facility] Cvhefimsqf24[address] [place], [place] [address]Dr. Ivette Hernandez EGFR-NON AF IVORIAN 37 mL/min/1.73m2 Critically low >=60 [facility] Comment on above: Performed By: #### MYRNA Moreira, BNP ####[facility] Qzvqlxzlyi9440[address] [place], [place] [address]Dr. Ivette Hernandez Glucose [Mass/Vol] 132 mg/dL Critically high 74-106 [facility] Comment on above: Performed By: #### Chris Aranda BMP, BNP ####[facility] Tjxhhacasz32[address] [place], [place] [address]Dr. Ivette Hernandez Potassium [Moles/Vol] 3.1 mmol/L Critically low 3.5-5.1 [facility] Comment on above: Performed By: #### Chris Aranda BMP, BNP ####[facility] [address]vjmsqwcme[address] [place] [address]Dr. Ivette Hernandez Sodium [Moles/Vol] 147 mmol/L Critically high 136-145 [facility] Comment on above: Performed By: #### Chris Aranda BMP, BNP ####[facility] Jitkhvceim[address] [place] [id number]. Ivette Hernandez Urea nitrogen [Mass/Vol] 15.0 mg/dL Normal 7.0-18.0 [facility] Comment on above: Performed By: #### M G, BMP, BNP ####[facility] Zqrgrabors1216 [place] [id number]. Ivette Hernandez Urea nitrogen/Creatinine [Mass ratio] 10.6 mg/mg Normal [facility] Comment on above: Performed By: #### M G, BMP, BNP ####[facility] Kkhafhcgjk9[address] [place] [address]Dr. Ivette Hernandez TROPONIN, HIGH SENSITIVITYon 02-25-2022 HSTROP 15.5 pg/mL Normal 4.0-51.3 [facility] Comment on above: Result Comment: CUT- OFF POINTS HAVE BEEN ESTABLISHED BASED ON THE FOURTH UNIVERSAL DEFINITIONS OF MYOCARDIALINFARCTION. THE UPPER REFERENCE LIMIT (URL) OF TROPONIN, DEFINED THE 99TH PERCENTILE OFcTnI DISTRIBUTION IN A REFERENCE POPULATION, HAS BEEN CONFIRMED THE DECISION THRESHOLDFOR [place] DIAGNOSIS. Performed By: #### H STROPN ####[facility] Xztycqxlks4965[address] [place], [place] [address]Dr. Ivette Hernandez HSTROP 17.6 pg/mL Normal 4.0-51.3 [facility] Comment on above: Result Comment: CUT- OFF POINTS HAVE BEEN ESTABLISHED BASED ON THE [facility] UNIVERSAL DEFINITIONS OF MYOCARDIALINFARCTION. THE UPPER REFERENCE LIMIT (URL) OF TROPONIN, DEFINED THE 99TH PERCENTILE OFcTnI DISTRIBUTION IN A REFERENCE POPULATION, HAS BEEN CONFIRMED THE DECISION THRESHOLDFOR [place] DIAGNOSIS. Performed By: #### H STROPN ####[facility] [address]qepnrmv[address] [place] [address]Dr. Ivette Hernandez BNPon 02-24-2022 Natriuretic peptide B (Bld) [Mass/Vol] 09160.0 pg/mL Critically high <=900.0 [facility] Comment on above: Performed By: #### B ENGLISH COMPOSITION INSTRUCTOR, HSTROPN, CMP ####[facility] Wmgplwaqmn1603 [place] [address]Dr. Ivette Hernandez CBC AUTO DIFFon 02-24-2022 BASO # 0.1 103/ul Normal 0.0-0.[address] [facility] Comment on above: Performed By: #### C BC ####[facility] Tnfzegtajg69[address] [place], [place] [address]Dr. Ivette Hernandez Basophils/100 WBC (Bld) 0.5 % Normal 0.2-2.[address] [facility] Comment on above: Performed By: #### C BC ####[facility] Yfufdsqqik224[address] [place], [place] [address]Dr. Ivette Hernandez EO # 0.2 103/ul Normal 0.0-0.[address] [facility] Comment on above: Performed By: #### C BC ####[facility] Jvjqluaafk57[address] [place], [place] [address]Dr. Ivette Hernandez Eosinophils/100 WBC (Bld) 2.3 % Normal 0.9-7.[address] [facility] Comment on above: Performed By: #### C BC ####[facility] Udpttowrqp2140[address] [place], [place] [address]Dr. Ivette Hernandez Erythrocyte distribution width (RBC) [Ratio] 14.2 % Normal 11.0-15.[address] [facility] Comment on above: Performed By: #### C BC ####[facility] Psyatwncfv4[address] [place], [place] [address]Dr. Ivette Hernandez Hematocrit (Bld) [Volume fraction] 30.2 % Critically low 36.0-48.[address] [facility] Comment on above: Performed By: #### C BC ####[facility] Wzhbusbdrx58[address] [place], [place] [address]Dr. Ivette Hernandez Hemoglobin (Bld) [Mass/Vol] 9.3 g/dL Critically low 12.0-16.[address] [facility] Comment on above: Performed By: #### C BC ####[facility] Vvjgpnyodv33[address] [place], [place] [address]Dr. Ivette Hernandez IG # 0.04 10e3/ul Critically high 0.00-0.[address] [facility] Comment on above: Performed By: #### C BC ####[facility] Sjfqvemmyv9705 [place] [id number]. Cherjun Hernandez IG % 0.4 % Normal 0.0-0.[address] [facility] Comment on above: Performed By: #### C BC ####[facility] Udnjapvkcn23[address] [place] [address]Dr. Ivette Hernandez LYMPH # 2.6 103/ul Normal 1.2-3.[address] [facility] Comment on above: Performed By: #### C BC ####[facility] Puokvhatqp[address]83 [place] [address]Dr. Cherjun Hernandez Lymphocytes/100 WBC (Bld) 27.1 % Normal 20.5-60.[address] [facility] Comment on above: Performed By: #### C BC ####[facility] Esuhbsqfkf[address]856 [place] [address]Dr. Ivette Hernandez MANUAL DIFF REQ NO Normal [facility] Comment on above: Performed By: #### C BC ####[facility] Acsfhljmfu3283 [place] [address]Dr. Ivette David MCH (RBC) [Entitic mass] 27.8 pg Normal 26.7-34.[address] [facility] Comment on above: Performed By: #### C BC ####[facility] Pqncxerqpb99[address] [place], [place] [address]Dr. Ivette David MCHC (RBC) [Mass/Vol] 30.8 g/dL Normal 29.9-35.[address] [facility] Comment on above: Performed By: #### C BC ####[facility] Lycxqwyxec[address] [place], [place] [address]Dr. Cherjun Hernandez MCV (RBC) [Entitic vol] 90.4 fL Normal 81.0-99.[address] [facility] Comment on above: Performed By: #### C BC ####[facility] Uuvwguvrac5[address] [place], [place] [address]Dr. Ivette Hernandez MONO # 0.6 103/ul Normal 0.3-0.[address] [facility] Comment on above: Performed By: #### C BC ####[facility] Gsaoeotztj[address] [place], [place] [address]Dr. Ivette Hernandez Monocytes/100 WBC (Bld) 6.1 % Normal 1.7-12.[address] [facility] Comment on above: Performed By: #### C BC ####[facility] Ojqfwhadwt6100 [place] [id number]. Ivette Hernandez NEUT # 6.1 103/ul Normal 1.4-6.[address] [facility] Comment on above: Performed By: #### C BC ####[facility] Bobkaezgir6774 [place] [address]Dr. Ivette Hernandez Neutrophils/100 WBC (Bld) 63.6 % Normal 43.0-75.[address] [facility] Comment on above: Performed By: #### C BC ####[facility] Bkdymqhacd9131 [place] [address]Dr. Ivette Hernandez Platelet mean volume (Bld) [Entitic vol] 9.2 fL Critically low 9.5-13.[address] [facility] Comment on above: Performed By: #### C BC ####[facility] Ihcfohjsvb5419 [place] [address]Dr. Ivette Hernandez PLT 267 103/ul Normal 150-[address] [facility] Comment on above: Performed By: #### C BC ####[facility] Gsthgozvvh4887 [place] [address]Dr. Ivette Hernandez RBC 3.34 106/ul Critically low 4.20-5.[address] [facility] Comment on above: Performed By: #### C BC ####[facility] Hrxxqvqkfv9813 [place] [address]Dr. Ivette Hernandez WBC 9.6 103/ul Normal 4.0-11.[address] [facility] Comment on above: Performed By: #### C BC ####[facility] [address]yrwavoyw[address] [place], [place] [address]Dr. Ivette Hernandez Covid-19 PCR [facility]on [facility]-01 SARS-CoV-2 (COVID-19) RNA MARRY+probe Ql (Unsp spec) Not detected Normal NOT DETECTED [facility] Comment on above: Result Comment: When [...] for this test is supported by the Automatic [employer]illing [employer] Operator of Health and Human Service's declaration that [...] be used). Performed By: #### C VDTBH ####[facility] Ndmguxskne[address] [place] [address]Dr. Ivette Hernandez IRON AND TIBCon 02-24-2022 % SATURATION 13.8 % Normal [facility] Comment on above: Performed By: #### V ITAD, FETIBC, B12FOL ####[facility] Zkensrjdcz3206 [place] [address]Dr. Cherjun Hernandez Iron [Mass/Vol] 26.0 ug/dL Critically low 50.0-170.0 [facility] Comment on above: Performed By: #### V ITAD, FETIBC, B12FOL ####[facility] Svzeqsxpaz[address] [place], [place] [address]Dr. Ivette Hernandez TIBC DIRECT 188.0 ug/dL Critically low 250.0-450.0 [facility] Comment on above: Performed By: #### V ITAD, FETIBC, B12FOL ####[facility] Iwnjzkhssc55[address] [place] [address]Dr. Cherjun Hernandez PROF 14(COMP METB)on 022 Albumin [Mass/Vol] 2.6 g/dL Critically low 3.4-5.[address] [facility] Comment on above: Performed By: #### B ENGLISH COMPOSITION INSTRUCTOR, HSTROPN, CMP ####[facility] Comutwnqfu9[address] [place] [address]Dr. Ivette Hernandez Albumin/Globulin [Mass ratio] 0.6 {ratio} Normal [facility] Comment on above: Performed By: #### B ENGLISH COMPOSITION INSTRUCTOR, HSTROPN, CMP ####[facility] Qsvkvcsddx5476 [place] [address]Dr. Cherjun Hernandez ALP [Catalytic activity/Vol] 79 U/L Normal 46-116 [facility] Comment on above: Performed By: #### B ENGLISH COMPOSITION INSTRUCTOR, HSTROPN, CMP ####[facility] Gsdldkyvjh39[address] [place] [address]Dr. Cherjun Hernandez ALT [Catalytic activity/Vol] 18 U/L Normal 14-59 [facility] Comment on above: Performed By: #### B ENGLISH COMPOSITION INSTRUCTOR, HSTROPN, CMP ####[facility] Jkhausxoqd013[address] [place], [place] [address]Dr. Ivette Hernandez Anion gap [Moles/Vol] 7.4 mmol/L Normal [facility] Comment on above: Performed By: #### B ENGLISH COMPOSITION INSTRUCTOR, HSTROPN, CMP ####[facility] Brezuimsdx23[address] [place], [place] [address]Dr. Cherjun Hernandez AST [Catalytic activity/Vol] 14 U/L Critically low 15-37 [facility] Comment on above: Performed By: #### B ENGLISH COMPOSITION INSTRUCTOR, HSTROPN, CMP ####[facility] Kyngsfurnh[address] [place], [place] [address]Dr. Ivette Hernandez Bilirubin [Mass/Vol] 0.4 mg/dL Normal 0.2-1.0 [facility] Comment on above: Performed By: #### B ENGLISH COMPOSITION INSTRUCTOR, HSTROPN, CMP ####[facility] Eksdglptwm[address] [place], [place] [address]Dr. Ivette Hernandez Calcium [Mass/Vol] 6.3 mg/dL Critically low 8.5-10.[address] [facility] Comment on above: Performed By: #### B ENGLISH COMPOSITION INSTRUCTOR, HSTROPN, CMP ####[facility] Hwnqiawccb[address] [place], [place] [address]Dr. Ivette Hernandez Chloride [Moles/Vol] 108 mmol/L Critically high 98-[address] [facility] Comment on above: Performed By: #### B ENGLISH COMPOSITION INSTRUCTOR, HSTROPN, CMP ####[facility] Zahmglajbs[address]267 [place] [address]Dr. Ivette Hernandez CO2 [Moles/Vol] 31.7 mmol/L Normal 21.0-32.0 [facility] Comment on above: Performed By: #### B ENGLISH COMPOSITION INSTRUCTOR, HSTROPN, CMP ####[facility] Mqoclycjlz7449 [place] [address]Dr. Ivette Hernandez Creatinine [Mass/Vol] 1.50 mg/dL Critically high 0.55-1.[address] [facility] Comment on above: Performed By: #### B ENGLISH COMPOSITION INSTRUCTOR, HSTROPN, CMP ####[facility] Pjyntiepbc0979 [place] [address]Dr. Ivette Hernandez EGFR-AF IVORIAN 41 mL/min/1.73m2 Critically low >=[address] [facility] Comment on above: Performed By: #### B ENGLISH COMPOSITION INSTRUCTOR, HSTROPN, CMP ####[facility] Dowfqwngxu[address] [place], [place] [address]Dr. Ivette Hernandez EGFR-NON AF IVORIAN 34 mL/min/1.73m2 Critically low >=60 [facility] Comment on above: Performed By: #### B ENGLISH COMPOSITION INSTRUCTOR, HSTROPN, CMP ####[facility] Naylfsgqpt4[address] [place], [place] [address]Dr. Ivette Hernandez Globulin (S) [Mass/Vol] 4.3 g/dL Normal [facility] Comment on above: Performed By: #### B ENGLISH COMPOSITION INSTRUCTOR, HSTROPN, CMP ####[facility] Kmldgiwrbp9301 [place] [address]Dr. Ivette Hernandez Glucose [Mass/Vol] 116 mg/dL Critically high 74-106 [facility] Comment on above: Performed By: #### B ENGLISH COMPOSITION INSTRUCTOR, HSTROPN, CMP ####[facility] Msavzhcvqe4342 [place] [address]Dr. Ivette Hernandez Potassium [Moles/Vol] 3.1 mmol/L Critically low 3.5-5.[address] [facility] Comment on above: Performed By: #### B ENGLISH COMPOSITION INSTRUCTOR, HSTROPN, CMP ####[facility] Vjkbdpxecg1817 [place] [address]Dr. Ivette Hernandez Protein [Mass/Vol] 6.9 g/dL Normal 6.4-8.[address] [facility] Comment on above: Performed By: #### B ENGLISH COMPOSITION INSTRUCTOR, HSTROPN, CMP ####[facility] Anieguvfiv8612 [place] [address]Dr. Ivette Hernandez Sodium [Moles/Vol] 144 mmol/L Normal 136-[address] [facility] Comment on above: Performed By: #### B ENGLISH COMPOSITION INSTRUCTOR, HSTROPN, CMP ####[facility] Lryrfsxslk9468 [place] [address]Dr. Ivette Hernandez Urea nitrogen [Mass/Vol] 16.0 mg/dL Normal 7.0-18.[address] [facility] Comment on above: Performed By: #### B ENGLISH COMPOSITION INSTRUCTOR, HSTROPN, CMP ####[facility] Ouepnzaggj65[address] [place] [address]Dr. Ivette Hernandez Urea nitrogen/Creatinine [Mass ratio] 10.7 mg/mg Normal The [facility] Comment on above: Performed By: #### B ENGLISH COMPOSITION INSTRUCTOR, HSTROPN, CMP ####[facility] Vjujbcssjo27[address] [place] [address]Dr. Ivette Hernandez TROPONIN, HIGH SENSITIVITYon 02-24-2022 HSTROP 20.8 pg/mL Normal 4.0-51.[address] [facility] Comment on above: Result Comment: CUT- OFF POINTS HAVE BEEN ESTABLISHED BASED ON THE FOURTH UNIVERSAL DEFINITIONS OF MYOCARDIALINFARCTION. THE UPPER REFERENCE LIMIT (URL) OF TROPONIN, DEFINED THE 99TH PERCENTILE OFcTnI DISTRIBUTION IN A REFERENCE POPULATION, HAS BEEN CONFIRMED THE DECISION THRESHOLDFOR [place] DIAGNOSIS. Performed By: #### B ENGLISH COMPOSITION INSTRUCTOR, HSTROPN, CMP ####[facility] [address] [place] [address]Dr. Ivette Hernandez VIT B12 AND FOLATEon 022 Cobalamin (Vitamin B12) [Mass/Vol] 930.0 pg/mL Normal 193.0-986.0 [facility] Comment on above: Performed By: #### V ITAD, FETIBC, B12FOL ####[facility] [address] [place] [id number]. Ivette Hernandez FOLATE 22.30 ng/mL Normal 8.60-58.90 [facility] Comment on above: Performed By: #### V ITAD, FETIBC, B12FOL ####[facility] [address] [place] [id number]. Ivette Hernandez VITAMIN D 25 OHon 02-24-2022 VIT D 25-OH 35.4 ng/mL Normal [facility] Comment on above: Performed By: #### V ITAD, FETIBC, B12FOL ####[facility] [address] [place] [address]Dr. Ivette Hernandez VIT D RANGES SEE BELOW Normal [facility] Comment on above: Result Comment: <20 ng/mL Vit D deficient 20 - <30 ng/mL Vit D insufficient 30 - 100 ng/mL Vit D sufficient >100 ng/mL Potential Toxicity Performed By: #### V ITAD, FETIBC, B12FOL ####[facility] [address] [place] [address]Dr. Ivette Hernandez XR CHEST 1 Von 02-24-2022 XR CHEST 1 V Normal [facility] CHEMISTRYOrdered By: SYSTEM SYSTEM on 02-06-2022 Creatinine [Mass/Vol] 1.5 mg/dL High 0.5 - 1.3 mg/d L [facility] Remisol GFR/1.73 sq M.predicted among blacks MDRD (S/P/Bld) [Vol rate/Area] 41 mL/min/1.73 m2 Low >=59mL/min/1.73 m2 [facility] Chem S GFR/1.73 sq M.predicted among non-blacks MDRD (S/P/Bld) [Vol rate/Area] 34 mL/min/1.73 m2 Low >=59mL/min/1.73 m2 [facility] Chem S Covid-19 PCR (CVDTBH)on 11-01 SARS-CoV-2 (COVID-19) RNA MARRY+probe Ql (Unsp spec) Detected Critically abnormal NOT DETECTED [facility] Comment on above: Result Comment: This test is not yet approved or cleared by the [place] FDA. When there are no FDA-approved or cleared tests available, and other criteria are met, FDA can make tests available under an emergency access mechanism called an Emergency Use Authorization (EUA). The EUA for this test is supported by the Automatic Quilling Machine Operator of Health and Human Service's (HHS's) declaration [...] longer be used). Performed By: #### [facility] ####[facility] [address] [place], [place] [address]Zi. Ivette [facility] Metabolic Pane [facility] 10-03-2021 Albumin [Mass/Vol] 3.3 g/dL Low 3.6-5.1 [facility] Specialist Comment on above: Performed By: #### C MP #### [facility] [address], [place] [id number] Albumin/Globulin [Mass ratio] 1.5 {ratio} Normal 1.0-2.5 [facility] Specialist Comment on above: Performed By: #### C MP #### [facility] [address], [place] [id number] ALP [Catalytic activity/Vol] 56 U/L Normal 35-119 [facility] Specialist Comment on above: Performed By: #### C MP #### [facility] [address], [place] [id number] ALT [Catalytic activity/Vol] 10 U/L Normal 6-33 [facility] Specialist Comment on above: Result Comment: 04/02 Female reference range changed. Performed By: #### C MP #### [facility] [address], [place] [id number] Anion gap [Moles/Vol] 15 mmol/L Normal 12-20 [facility] Specialist Comment on above: Result Comment: Effe ctive 05/08/2019 reference range changed. Performed By: #### C MP #### [facility] [address], [place] [id number] AST [Catalytic activity/Vol] 15 U/L Normal 9-34 [facility] Comment on above: Performed By: #### C MP #### [facility] [address], [place] [id number] BUN/CREA 15 Ratio Normal 6-22 [facility] Comment on above: Performed By: #### C MP #### [facility] [address], [place] [id number] Calcium [Mass/Vol] 6.2 mg/dL Low 8.6-10.2 [facility] Comment on above: Performed By: #### C MP #### [facility] [address], [place] [id number] Chloride [Moles/Vol] 108 mmol/L High 98-107 [facility] Comment on above: Performed By: #### C MP #### [facility] [address], [place] [id number] CO2 [Moles/Vol] 24 mmol/L Normal 20-31 [facility] Comment on above: Performed By: #### C MP #### [facility] [address], [place] [id number] Creatinine [Mass/Vol] 1.9 mg/dL High 0.6-1.4 [facility] Comment on above: Performed By: #### C MP #### [facility] [address], [place] [id number] eGFRAA 31 mL/min/1.73m2 Low >60 [facility] Comment on above: Performed By: #### C MP #### [facility] [address], [place] [id number] eGFRNAA 26 mL/min/1.73m2 Low >60 [facility] Comment on above: Performed By: #### C MP #### [facility] [address], [place] [id number] Globulin (S) [Mass/Vol] 2.2 g/dL Normal 1.9-3.7 [facility] Specialist Comment on above: Performed By: #### C MP #### [facility] [address], [place] [id number] Glucose [Mass/Vol] 107 mg/dL High 65-99 [facility] Specialist Comment on above: Result Comment: For FASTING Glucose --- ADA reference ranges: Normal 65-99 mg/dl Prediabetes 100-125 Diabetes >/= 126 Performed By: #### C MP #### [facility] [address], [place] [id number] Potassium [Moles/Vol] 4.3 mmol/L Normal 3.5-5.5 [facility] Comment on above: Performed By: #### C MP #### [facility] [address], [place] [id number] Protein [Mass/Vol] 5.5 g/dL Low 6.1-8.1 [facility] Specialist Comment on above: Performed By: #### C MP #### [facility] [address], [place] [id number] Sodium [Moles/Vol] 143 mmol/L Normal 135-146 [facility] Specialist Comment on above: Performed By: #### C MP #### [facility] [address], [place] [id number] TBIL <0.3 Normal [facility] Comment on above: Performed By: #### C MP #### [facility] [address], [place] [id number] Urea nitrogen [Mass/Vol] 29 mg/dL High 7-25 [facility] Specialist Comment on above: Performed By: #### C MP #### [facility] [address], [place] [id number] Q - B-TYPE NATRIURETIC (BNP) on 10-03-2021 Natriuretic peptide B (Bld) [Mass/Vol] 248 pg/mL High <100 [facility] Specialist Comment on above: Order Comment: [facility] performed at: QPT, [facility], [address] , [address] [place] [address], [place], [address], Survey Analyst: Chon Manzano MD [facility] Collection Date/Time: [id number] [facility] Results Received Date/Time: [facility] Reported Date/Time: Result Comment: BNP levels increase with age in the general population with the highest values seen in individuals greater than 75 years of age. Reference: J. Am. Dylan. Cardiol. 2002; 40:976-982. Performed By: #### [id number] #### [facility] [address] [place] [address] Complete Blood Counton 09-11 Erythrocyte distribution width (RBC) [Ratio] 14.3 % Normal 11.0-15.0 [facility] Comment on above: Performed By: #### C MP, CBC #### [facility] [address], [place] [id number] Hematocrit (Bld) [Volume fraction] 30.1 % Low 35.0-47.0 [facility] Specialist Comment on above: Performed By: #### C MP, CBC #### [facility] [address], [place] [id number] Hemoglobin (Bld) [Mass/Vol] 9.1 g/dL Low 11.6-15.5 [facility] Comment on above: Performed By: #### C MP, CBC #### [facility] [address], [place] [id number] MCH (RBC) [Entitic mass] 28.7 pg Normal 27.0-33.0 [facility] Specialist Comment on above: Performed By: #### C MP, CBC #### [facility] [address], [place] [id number] MCHC (RBC) [Mass/Vol] 30.2 g/dL Low 32.0-36.0 [facility] Comment on above: Performed By: #### C MP, CBC #### [facility] [address], [place] [id number] MCV (RBC) [Entitic vol] 95 fL Normal 80-100 [facility] Specialist Comment on above: Performed By: #### C MP, CBC #### [facility] [address], [place] [id number] Platelet mean volume (Bld) [Entitic vol] 9.60 fL Normal 7.50-12.50 [facility] Comment on above: Performed By: #### C MP, CBC #### [facility] [address], [place] [id number] Platelets (Bld) [#/Vol] 219 10*3/uL Normal 140-400 [facility] Comment on above: Performed By: #### C MP, CBC #### [facility] [address], [place] [id number] RBC (Bld) [#/Vol] 3.17 10*6/uL Low 3.90-5.20 [facility] Comment on above: Performed By: #### C MP, CBC #### [facility] [address], [place] [id number] RDW-SD 49.8 fL Normal 37.0-50.0 [facility] Comment on above: Performed By: #### C MP, CBC #### [facility] [address], [place] [id number] WBC (Bld) [#/Vol] 11.0 10*3/uL Normal 3.8-11.0 [facility] Comment on above: Performed By: #### C MP, CBC #### [facility] [address], [place] [id number] Comprehensive Metabolic Pane [facility] 09-11-2021 Albumin [Mass/Vol] 3.4 g/dL Low 3.6-5.1 [facility] Comment on above: Performed By: #### C MP, CBC #### [facility] [address], [place] [id number] Albumin/Globulin [Mass ratio] 1.5 {ratio} Normal 1.0-2.5 [facility] Comment on above: Performed By: #### C MP, CBC #### [facility] [address], [place] [id number] ALP [Catalytic activity/Vol] 65 U/L Normal 35-119 [facility] Comment on above: Performed By: #### C MP, CBC #### [facility] [address], [place] [id number] ALT [Catalytic activity/Vol] 52 U/L High 6-33 [facility] Comment on above: Result Comment: 04/02 Female reference range changed. Performed By: #### C MP, CBC #### [facility] [address], [place] [id number] Anion gap [Moles/Vol] 17 mmol/L Normal 12-20 [facility] Comment on above: Result Comment: Effe ctive 05/08/2019 reference range changed. Performed By: #### C MP, CBC #### [facility] [address], [place] [id number] AST [Catalytic activity/Vol] 26 U/L Normal 9-34 [facility] Comment on above: Performed By: #### C MP, CBC #### [facility] [address], [place] [id number] BUN/CREA 20 Ratio Normal 6-22 [facility] Comment on above: Performed By: #### C MP, CBC #### [facility] [address], [place] [id number] Calcium [Mass/Vol] 7.1 mg/dL Low 8.6-10.2 [facility] Comment on above: Performed By: #### C MP, CBC #### [facility] [address], [place] [id number] Chloride [Moles/Vol] 104 mmol/L Normal 98-107 [facility] Comment on above: Performed By: #### C MP, CBC #### [facility] [address], [place] [id number] CO2 [Moles/Vol] 27 mmol/L Normal 20-31 [facility] Comment on above: Performed By: #### C MP, CBC #### [facility] [address], [place] [id number] Creatinine [Mass/Vol] 1.6 mg/dL High 0.6-1.4 [facility] Comment on above: Performed By: #### C MP, CBC #### [facility] [address], [place] [id number] eGFRAA 38 mL/min/1.73m2 Low >60 [facility] Specialist Comment on above: Performed By: #### C MP, CBC #### [facility] [address], [place] [id number] eGFRNAA 31 mL/min/1.73m2 Low >60 [facility] Specialist Comment on above: Performed By: #### C MP, CBC #### [facility] [address], [place] [id number] Globulin (S) [Mass/Vol] 2.3 g/dL Normal 1.9-3.7 [facility] Specialist Comment on above: Performed By: #### C MP, CBC #### [facility] [address], [place] [id number] Glucose [Mass/Vol] 216 mg/dL High 65-99 [facility] Specialist Comment on above: Result Comment: For FASTING Glucose --- ADA reference ranges: Normal 65-99 mg/dl Prediabetes 100-125 Diabetes >/= 126 Performed By: #### C MP, CBC #### [facility] [address], [place] [id number] Potassium [Moles/Vol] 4.9 mmol/L Normal 3.5-5.5 [facility] Comment on above: Performed By: #### C MP, CBC #### [facility] [address], [place] [id number] Protein [Mass/Vol] 5.7 g/dL Low 6.1-8.1 [facility] Specialist Comment on above: Performed By: #### C MP, CBC #### [facility] [address], [place] [id number] Sodium [Moles/Vol] 143 mmol/L Normal 135-146 [facility] Specialist Comment on above: Performed By: #### C MP, CBC #### [facility] [address], [place] [id number] TBIL <0.3 Normal [facility] Specialist Comment on above: Performed By: #### C MP, CBC #### [facility] [address], [place] [id number] Urea nitrogen [Mass/Vol] 33 mg/dL High 7-25 [facility] Specialist Comment on above: Performed By: #### C MP, CBC #### [facility] [address], [place] [id number] Q - B-TYPE NATRIURETIC (BNP) on 09-11-2021 Natriuretic peptide B (Bld) [Mass/Vol] 963 pg/mL High <100 [facility] Comment on above: Order Comment: [facility] performed at: QPT[facility], [address], [address] [facility], [place], [address], Survey Analyst: Chon Manzano MD [facility] Collection Date/Time: [id number] [facility] Results Received Date/Time: [id number] [facility] Reported Date/Time: Result Comment: BNP levels increase with age in the general population with the highest values seen in individuals greater than 75 years of age. Reference: J. Am. Dylan. Cardiol. 2002; 40:976-982. Performed By: #### 3 [id number] #### [facility] [address] [place] [address] Complete Blood Counton 06-26 Erythrocyte distribution width (RBC) [Ratio] 14.9 % Normal 11.0-15.0 [facility] Comment on above: Performed By: #### C BC, CMP #### [facility] [address], [place] [id number] Hematocrit (Bld) [Volume fraction] 29.4 % Low 35.0-47.0 [facility] Comment on above: Performed By: #### C BC, CMP #### [facility] [address], [place] [id number] Hemoglobin (Bld) [Mass/Vol] 9.3 g/dL Low 11.6-15.5 [facility] Comment on above: Performed By: #### C BC, CMP #### [facility] [address], [place] [id number] MCH (RBC) [Entitic mass] 29.3 pg Normal 27.0-33.0 [facility] Comment on above: Performed By: #### C BC, CMP #### [facility] [address], [place] [id number] MCHC (RBC) [Mass/Vol] 31.6 g/dL Low 32.0-36.0 [facility] Comment on above: Performed By: #### C BC, CMP #### [facility] [address], [place] [id number] MCV (RBC) [Entitic vol] 93 fL Normal 80-100 [facility] Comment on above: Performed By: #### C BC, CMP #### [facility] [address], [place] [id number] Platelet mean volume (Bld) [Entitic vol] 9.60 fL Normal 7.50-12.50 [facility] Comment on above: Performed By: #### C BC, CMP #### [facility] [address], [place] [id number] Platelets (Bld) [#/Vol] 228 10*3/uL Normal 140-400 [facility] Comment on above: Performed By: #### C BC, CMP #### [facility] [address], [place] [id number] RBC (Bld) [#/Vol] 3.17 10*6/uL Low 3.90-5.20 [facility] Comment on above: Performed By: #### C BC, CMP #### [facility] [address], [place] [id number] RDW-SD 51.3 fL High 37.0-50.0 [facility] Comment on above: Performed By: #### C BC, CMP #### [facility] [address], [place] [id number] WBC (Bld) [#/Vol] 7.9 10*3/uL Normal 3.8-11.0 [facility] Comment on above: Performed By: #### C BC, CMP #### [facility] [address], [place] [id number] Comprehensive Metabolic Pane marky 06-26-2021 Albumin [Mass/Vol] 4.0 g/dL Normal 3.6-5.1 [facility] Comment on above: Performed By: #### C BC, CMP #### [facility] [address], [place] [id number] Albumin/Globulin [Mass ratio] 1.4 {ratio} Normal 1.0-2.5 [facility] Specialist Comment on above: Performed By: #### C BC, CMP #### [facility] [address], [place] [id number] ALP [Catalytic activity/Vol] 69 U/L Normal 35-119 [facility] Specialist Comment on above: Performed By: #### C BC, CMP #### [facility] [address], [place] [id number] ALT [Catalytic activity/Vol] 18 U/L Normal 6-33 [facility] Specialist Comment on above: Result Comment: 04/02 Female reference range changed. Performed By: #### C BC, CMP #### [facility] [address], [place] [id number] Anion gap [Moles/Vol] 23 mmol/L High 12-20 [facility] Comment on above: Result Comment: Effe ctive 05/08/2019 reference range changed. Performed By: #### C BC, CMP #### [facility] [address], [place] [id number] AST [Catalytic activity/Vol] 18 U/L Normal 9-34 [facility] Specialist Comment on above: Performed By: #### C BC, CMP #### [facility] [address], [place] [id number] BUN/CREA 21 Ratio Normal 6-22 [facility] Specialist Comment on above: Performed By: #### C BC, CMP #### [facility] [address], [place] [id number] Calcium [Mass/Vol] 8.8 mg/dL Normal 8.6-10.2 [facility] Comment on above: Performed By: #### C BC, CMP #### [facility] [address], [place] [id number] Chloride [Moles/Vol] 106 mmol/L Normal 98-107 [facility] Comment on above: Performed By: #### C BC, CMP #### [facility] [address], [place] [id number] CO2 [Moles/Vol] 18 mmol/L Low 20-31 [facility] Specialist Comment on above: Performed By: #### C BC, CMP #### [facility] [address] [place] [id number] Creatinine [Mass/Vol] 2.1 mg/dL High 0.6-1.4 [facility] Specialist Comment on above: Performed By: #### C BC, CMP #### [facility] [address] [place], [place] [id number] eGFRAA 29 mL/min/1.73m2 Low >60 [facility] Specialist Comment on above: Performed By: #### C BC, CMP #### [facility] [address] [place], [place] [id number] eGFRNAA 24 mL/min/1.73m2 Low >60 [facility] Specialist Comment on above: Performed By: #### C BC, CMP #### [facility] [address], [place] [id number] Globulin (S) [Mass/Vol] 2.8 g/dL Normal 1.9-3.7 [facility] Comment on above: Performed By: #### C BC, CMP #### [facility] [address] [facility] [place] [id number] Glucose [Mass/Vol] 145 mg/dL High 65-99 [facility] Comment on above: Result Comment: For FASTING Glucose --- ADA reference ranges: Normal 65-99 mg/dl Prediabetes 100-125 Diabetes >/= 126 Performed By: #### C BC, CMP #### [facility] [address], [place] [id number] Potassium [Moles/Vol] 4.1 mmol/L Normal 3.5-5.5 [facility] Comment on above: Performed By: #### C BC, CMP #### [facility] [address] [facility] [place] [id number] Protein [Mass/Vol] 6.8 g/dL Normal 6.1-8.1 [facility] Comment on above: Performed By: #### C BC, CMP #### [facility] [address] [facility] [place] [id number] Sodium [Moles/Vol] 142 mmol/L Normal 135-146 [facility] Comment on above: Performed By: #### C BC, CMP #### [facility] [address], [place] [id number] TBIL <0.3 Normal [facility] Comment on above: Performed By: #### C BC, CMP #### [facility] [address], [place] [id number] Urea nitrogen [Mass/Vol] 44 mg/dL High 7-25 [facility] Comment on above: Performed By: #### C BC, CMP #### [facility] [address], [place] [id number] Complete Blood Counton 05-22 Erythrocyte distribution width (RBC) [Ratio] 14.4 % Normal 11.0-15.0 [facility] Comment on above: Performed By: #### C BC, CMP #### [facility] [address], [place] [id number] Hematocrit (Bld) [Volume fraction] 31.3 % Low 35.0-47.0 [facility] Comment on above: Performed By: #### C BC, CMP #### [facility] [address], [place] [id number] Hemoglobin (Bld) [Mass/Vol] 9.5 g/dL Low 11.6-15.5 [facility] Comment on above: Performed By: #### C BC, CMP #### [facility] [address], [place] [id number] MCH (RBC) [Entitic mass] 28.7 pg Normal 27.0-33.0 [facility] Comment on above: Performed By: #### C BC, CMP #### [facility] [address], [place] [id number] MCHC (RBC) [Mass/Vol] 30.4 g/dL Low 32.0-36.0 [facility] Comment on above: Performed By: #### C BC, CMP #### [facility] [address], [place] [id number] MCV (RBC) [Entitic vol] 95 fL Normal 80-100 [facility] Comment on above: Performed By: #### C BC, CMP #### [facility] [address], [place] [id number] Platelet mean volume (Bld) [Entitic vol] 9.90 fL Normal 7.50-12.50 [facility] Comment on above: Performed By: #### C BC, CMP #### [facility] [address], [place] [id number] Platelets (Bld) [#/Vol] 275 10*3/uL Normal 140-400 [facility] Comment on above: Performed By: #### C BETTYE, CMP #### [facility] [address], [place] [id number] RBC (Bld) [#/Vol] 3.31 10*6/uL Low 3.90-5.20 [facility] Comment on above: Performed By: #### Daren WEN, CMP #### [facility] [address], [place] [id number] RDW-SD 49.4 fL Normal 37.0-50.0 [facility] Comment on above: Performed By: #### C BETTYE, CMP #### [facility] [address], [place] [id number] WBC (Bld) [#/Vol] 11.2 10*3/uL High 3.8-11.0 [facility] Comment on above: Performed By: #### Daren WEN, CMP #### [facility] [address], [place] [id number] Comprehensive Metabolic Pane marky 05-22-2021 Albumin [Mass/Vol] 3.9 g/dL Normal 3.6-5.1 [facility] Comment on above: Performed By: #### C BETTYE, CMP #### [facility] [address], [place] [id number] Albumin/Globulin [Mass ratio] 1.3 {ratio} Normal 1.0-2.5 [facility] Comment on above: Performed By: #### C BC, CMP #### [facility] [address], [place] [id number] ALP [Catalytic activity/Vol] 68 U/L Normal 35-119 [facility] Comment on above: Performed By: #### C BC, CMP #### [facility] [address] [place], [place] [id number] ALT [Catalytic activity/Vol] 16 U/L Normal 6-33 [facility] Comment on above: Result Comment: 04/02 Female reference range changed. Performed By: #### C BC, CMP #### [facility] [address] [place], [place] [id number] Anion gap [Moles/Vol] 21 mmol/L High 12-20 [facility] Comment on above: Result Comment: Effe ctive 05/08/2019 reference range changed. Performed By: #### C BC, CMP #### [facility] [address] [place], [place] [id number] AST [Catalytic activity/Vol] 20 U/L Normal 9-34 [facility] Comment on above: Performed By: #### C BC, CMP #### [facility] [address] [place], [place] [id number] BUN/CREA 16 Ratio Normal 6-22 [facility] Comment on above: Performed By: #### C BC, CMP #### [facility] [address] [place], [place] [id number] Calcium [Mass/Vol] 7.9 mg/dL Low 8.6-10.2 [facility] Comment on above: Performed By: #### C BC, CMP #### [facility] [address] [place], [place] [id number] Chloride [Moles/Vol] 102 mmol/L Normal 98-107 [facility] Comment on above: Performed By: #### C BC, CMP #### [facility] [address] [place], [place] [id number] CO2 [Moles/Vol] 26 mmol/L Normal 20-31 [facility] Comment on above: Performed By: #### C BC, CMP #### [facility] [address] [place], [place] [id number] Creatinine [Mass/Vol] 2.0 mg/dL High 0.6-1.4 [facility] Comment on above: Performed By: #### C BC, CMP #### [facility] [address] [place], [place] [id number] eGFRAA 30 mL/min/1.73m2 Low >60 [facility] Specialist Comment on above: Performed By: #### C BC, CMP #### [facility] [address], [place] [id number] eGFRNAA 25 mL/min/1.73m2 Low >60 [facility] [facility] Comment on above: Performed By: #### C BC, CMP #### [facility] [address], [place] [id number] Globulin (S) [Mass/Vol] 3.1 g/dL Normal 1.9-3.7 [facility] Comment on above: Performed By: #### C BC, CMP #### [facility] [address], [place] [id number] Glucose [Mass/Vol] 57 mg/dL Low 65-99 [facility] Comment on above: Result Comment: For FASTING Glucose --- ADA reference ranges: Normal 65-99 mg/dl Prediabetes 100-125 Diabetes >/= 126 Performed By: #### C BC, CMP #### [facility] [address], [place] [id number] Potassium [Moles/Vol] 4.9 mmol/L Normal 3.5-5.5 [facility] Comment on above: Performed By: #### C BC, CMP #### [facility] [address], [place] [id number] Protein [Mass/Vol] 7.0 g/dL Normal 6.1-8.1 [facility] Comment on above: Performed By: #### C BC, CMP #### [facility] [address], [place] [id number] Sodium [Moles/Vol] 144 mmol/L Normal 135-146 [facility] Comment on above: Performed By: #### C BC, CMP #### [facility] [address], [place] [id number] TBIL <0.3 Normal [facility] Specialist Comment on above: Performed By: #### C BC, CMP #### [facility] [address], [place] [id number] Urea nitrogen [Mass/Vol] 31 mg/dL High 7-25 [facility] Comment on above: Performed By: #### C BC, CMP #### [facility] [address], [place] [id number] Hemoglobin A1Con 05-22-2021 EAG 125.50 Normal [facility] Comment on above: Performed By: #### A 1C #### [facility] [address], [place] [id number] HbA1c (Bld) [Mass fraction] 6.0 % Normal 4.0-6.0 [facility] Comment on above: Performed By: #### A 1C #### [facility] [address], [place] [id number] BASIC METABOLIC PANELon 08-02 Calcium 9.6 mg/dL Normal 8.6-10.3 [facility] Comment on above: Performed By: #### 0 0071 ####[facility] [place] [address], [facility] Chloride 100 mmol/L Normal 98-107 [facility] Comment on above: Performed By: #### 0 0071 ####[facility] [place] [address], [facility] CO2 28 mmol/L Normal 21-31 [facility] Comment on above: Performed By: #### 0 0071 ####[facility] [place] [address], [facility] Creatinine 1.15 mg/dL Normal 0.60-1.20 [facility] Comment on above: Performed By: #### 0 0071 ####[facility] [place] [address], [facility] eGFR (black) 57 ml/min/1.73sq m Abnormal >60 [facility] Comment on above: Performed By: #### 0 0071 ####[facility] [place] [address], [facility] eGFR (non-black) 47 ml/min/1.73sq m Abnormal >60 [facility] Comment on above: Performed By: #### 0 0071 ####[facility] Glucose mass conc 163 mg/dL High 70-100 [facility] Comment on above: Performed By: #### 0 0071 ####[facility] Potassium molar conc 4.1 mmol/L Normal 3.5-5.1 [facility] Comment on above: Performed By: #### 0 0071 ####[place] [address] [address] Sodium 135 mmol/L Low 136-145 [facility] Comment on above: Performed By: #### 0 0071 ####[place] [address]70 [address] Urea nitrogen 17 mg/dL Normal 7-25 [facility] Comment on above: Performed By: #### 0 0071 ####[address] CBC W/DIFFon 08-24-2017 ABS BASOPHILS 0.1 10*3/uL Normal 0.0-0.2 [facility] Comment on above: Performed By: #### 5 102 ####[place] [address] [address] ABS IMM GRANS 0.1 10*3/uL Normal 0.0-0.2 [facility] Comment on above: Performed By: #### 5 102 ####[facility] Basophils Auto #/vol (Bld) 0.5 % Normal 0.0-1.0 [facility] Comment on above: Performed By: #### 5 0103 ####[facility] [place] [address], [facility] Eosinophils 0.4 10*3/uL Normal 0.0-0.5 [facility] Comment on above: Performed By: #### 5 0103 ####[facility] [place] [address], [facility] Eosinophils/100 leukocytes 3.5 % Normal 0.0-6.0 [facility] Comment on above: Performed By: #### 0103 ####[facility].[address] Erythrocyte distribution width Auto Ratio (RBC) 14.2 % Normal 11.5-15.0 [facility] Comment on above: Performed By: #### 3 ####[facility].[address] Erythrocytes (RBC) 0 % Normal 0-0 [facility] Comment on above: Performed By: #### 0103 ####[facility].[address] Erythrocytes (RBC) 4.12 10*6/uL Normal 3.80-5.00 [facility] Comment on above: Performed By: #### 3 ####[facility].[address] Hematocrit (HCT) 37.1 % Normal 36.0-45.0 [facility] Comment on above: Performed By: #### 3 ####[facility] Hemoglobin mass conc (Bld) 12.3 g/dL Normal 12.0-15.0 [facility] Comment on above: Performed By: #### 3 ####[facility] [place] [address], [facility] IMMATURE GRANS 0.4 % Normal 0.0-1.0 [facility] Comment on above: Performed By: #### 5 0103 ####[facility] Lymphocytes 5.1 10*3/uL High 1.2-4.0 [facility] Comment on above: Performed By: #### 5 0103 ####[facility] Lymphocytes/100 leukocytes 40.5 % Normal 20.0-45.0 [facility] Comment on above: Performed By: #### 5 0103 ####[facility] MCH 29.9 pg Normal 27.0-33.0 [facility] Comment on above: Performed By: #### 5 0103 ####[facility] MCHC mass conc (RBC) 33.2 g/dL Normal 32.0-35.0 [facility] Comment on above: Performed By: #### 5 0103 ####[address] MCV 90.0 fL Normal 82.0-98.0 [facility] Comment on above: Performed By: #### 5 0103 ####[facility] Monocytes 0.9 10*3/uL Normal 0.1-1.0 [facility] Comment on above: Performed By: #### 5 3 ####[facility] MONOS 7.5 % Normal 5.0-12.0 [facility] Comment on above: Performed By: #### 5 3 ####[facility]3000 [facility].[address] Neutrophils 6.0 10*3/uL Normal 1.6-7.6 [facility] Comment on above: Performed By: #### 5 0103 ####[facility] [place] [address], [facility] Neutrophils/100 leukocytes 47.6 % Normal 40.0-72.0 [facility] Comment on above: Performed By: #### 5 0103 ####[facility]3000 [facility] [place] [address], [facility] PLAT CNT 239 10*3/uL Normal 150-400 [facility] Comment on above: Performed By: #### 5 0103 ####[facility] [place] [address], [facility] WBC (Leukocytes) 12.5 10*3/uL High 4.0-10.6 [facility] Comment on above: Performed By: #### 5 0103 ####[facility] [place] [address] CT ABDOMEN AND PELVIS WO CON TRASTon 08-24-2017 CT ABDOMEN AND PELVIS WO CONTRAST [facility] Bspxfgxmx[address] [place] [id number] ========Patient Name: MARTIN HAGEN : 1950Sex: FAge: Race: WhiteMRN: [id number]. 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 Electronically signed by:Colin Clemente. Transcribed by: [email or web address], User Resident: LUIS RUSHElectronically Signed by: COLIN CLEMENTE @ 08/25/2017 10:20 PMI personally read this/these film(s) with this resident Normal [facility] Comment on above: Order Comment: , , o ral contrast only , , , Ordering Provider - KASANDRA BROWN MD , Rendering Provider - KASANDRA BROWN MD , HEMOGLOBIN A1Con 08-24-2017 Glucose mass conc 146 mg/dL High 70-126 [facility] Comment on above: Performed By: #### 4 6447 ####[facility]3000 [facility].[address] Hemoglobin A1c/Hemoglobin.total mass fraction (Bld) 6.7 % High 4.0-6.0 [facility] Comment on above: Performed By: #### 4 6447 ####[facility]3000 [facility].[address] PROTHROMBIN TIMEon 8 INR Coag RelTime (PPP) 1.10 {INR} Normal 0.91-1.16 [facility] Comment on above: Result Comment: ACCC P RECOMMENDED INR FOR WARFARIN THERAPY CONDITION INRPROPHYLAXIS OF VENOUS THROMBOSIS 2-3(HIGH-RISK SURGERY)TREATMENT OF VENOUS THROMBOSIS 2-3TREATMENT OF PULMONARY EMBOLISM 2-3PREVENTION OF SYSTEMIC EMBOLISM: 2-3 ACUTE MYOCARDIAL INFARCTION TISSUE HEART VALVES VALVULAR HEART DISEASE ATRIAL FIBRILLATION RECURRENT SYSTEMIC EMBOLISMMECHANICAL HEART VALVE 2.5-3.5 FROM: ORAL ANTICOAGULANTS. MECHANISM OF ACTION, CLINICALEFFECTIVENESS, AND OPTIMAL THERAPEUTIC RANGE. [id number]. Performed By: #### 5 6101 ####[facility]3000 [facility].[address] Prothrombin time (PT) Coag time (PPP) 14.3 s Normal 12.3-14.8 [facility] Comment on above: Result Comment: ALL RESULTS MUST BE INTERPRETED WITH RESPECT TO BLOOD DRAWING ARTIFACTOR DILUTION ERROR OF ANTICOAGULANT AT THE TIME OF SAMPLING. Performed By: #### 5 6101 ####[facility] Vital Signs Date Time Vital Sign Value Performing Clinician Facility 04-29-2023 14:24-0500 Body height 152.[address] 04-29-2023 14:24-0500 Body mass index (BMI) [Ratio] 31.25 kg/m2 [address] 04-29-2023 14:24-0500 Body weight 72.[address] 04-29-2023 14:24-0500 Diastolic blood pressure 64 mm[Hg] [address] 04-29-2023 14:24-0500 Systolic blood pressure 122 mm[Hg] [address] 04-28-2023 09:43-0500 Body temperature 96.98 [degF] Jacqui Lue [facility] 04-28-2023 09:43-0500 Diastolic blood pressure 86 mm[Hg] Jacqui Lue [facility] 04-28-2023 09:43-0500 Heart rate 74 /min Jacqui Lue [facility] 04-28-2023 09:43-0500 Systolic blood pressure 124 mm[Hg] Jacqui Lue [facility] 03-30-2023 13:55-0500 Body height 152.4 cm Annika Kaba APRN-VISUAL TRAINING AIDE Work Phone: [facility] 03-30-2023 13:55-0500 Body mass index (BMI) [Ratio] 31.25 kg/m2 Annika Kaba APRN-VISUAL TRAINING AIDE Work Phone: [facility] 03-30-2023 13:55-0500 Body weight 72.58 kg Annika Kaba COVER MAKING MACHINE OPERATOR-VISUAL TRAINING AIDE Work Phone: [facility] 03-30-2023 13:55-0500 Diastolic blood pressure 60 mm[Hg] Annika Kaba COVER MAKING MACHINE OPERATOR-VISUAL TRAINING AIDE Work Phone: [facility] 03-30-2023 13:55-0500 Heart rate 70 /min Annika Kaba COVER MAKING MACHINE OPERATOR-VISUAL TRAINING AIDE Work Phone: [facility] 03-30-2023 13:55-0500 Systolic blood pressure 128 mm[Hg] Annika Kaba COVER MAKING MACHINE OPERATOR-VISUAL TRAINING AIDE Work Phone: [facility] 02-03-2023 09:07-0400 Blood Pressure Location Jacqui Lue [facility] 02-03-2023 09:07-0400 Diastolic blood pressure 74 mm[Hg] Jacqui Lue [facility] 02-03-2023 09:07-0400 Heart rate 68 /min Jacqui Lue [facility] 02-03-2023 09:07-0400 Respiratory rate 16 /min Jacqui Lue [facility] 02-03-2023 09:07-0400 Systolic blood pressure 120 mm[Hg] Jacqui Lue [facility] 12-29-2022 14:17-0400 Blood Pressure Location INES CUENCARY [facility] 12-29-2022 14:17-0400 Diastolic blood pressure 70 mm[Hg] INES DANN [facility] 12-29-2022 14:17-0400 Heart rate 70 /min INES DANN [facility] 12-29-2022 14:17-0400 Respiratory rate 16 /min INES WELCH [facility] 12-29-2022 14:17-0400 Systolic blood pressure 132 mm[Hg] INES WELCH [facility] 12-28-2022 14:33-0400 Body height 152.4 cm Shawn Pearson Barber Work Phone[facility] [address] Work Phone: 12-28-2022 14:33-0400 Body mass index (BMI) [Ratio] 29.49 kg/m2 Shawn Barber Work Phone: [facility] DO Work Phone: 12-28-2022 14:33-0400 Body surface area Derived from formula 1.66 m2 Shawn Barber Work Phone: [facility] DO Work Phone: 12-28-2022 14:33-0400 Body weight 68.49 kg Shawn Barber Work Phone: [facility] DO Work Phone: 12-28-2022 14:33-0400 Diastolic blood pressure 44 mm[Hg] Shawn Barber Work Phone: [facility] DO Work Phone: 12-28-2022 14:33-0400 Heart rate 76 /min Shawn Barber Work Phone: [facility] DO Work Phone: 12-28-2022 14:33-0400 Systolic blood pressure 80 mm[Hg] Shawn Barber Work Phone: [facility] DO Work Phone: 12-28-2022 14:33-0400 11 1 Shawn Barber Work Phone: [facility] DO Work Phone: Comment on above: PHQ-9 TS 11-21-2022 16:00-0400 Inhaled oxygen flow rate 4 L/min II Shawn Barber Work Phone: [facility] 11-21-2022 15:53-0400 Heart rate 65 /min II Shawn Barber Work Phone: [facility] 11-21-2022 15:53-0400 Respiratory rate 20 /min II Shawn Barber Work Phone: [facility] 11-21-2022 12:00-0400 Diastolic blood pressure 79 mm[Hg] II Shawn Barber Work Phone: [facility] 11-21-2022 12:00-0400 SaO2% (BldA) [Mass fraction] 93 % II Shawncris Barber Work Phone: [facility] 11-21-2022 12:00-0400 Systolic blood pressure 149 mm[Hg] II Shawncris Barber Work Phone: [facility] 11-21-2022 08:30-0400 Body temperature 97.9 [degF] II Shawn Barber Work Phone: [facility] 11-21-2022 06:00-0400 Body weight 74 kg II Shawncris Barber Work Phone: [facility] 11-19-2022 09:40-0400 Body height 152.4 cm II Shawn Barber Work Phone: [facility] 11-18-2022 19:23-0400 Diastolic blood pressure 88 mm[Hg] II Shawn Barber Work Phone: [facility] 11-18-2022 19:23-0400 Heart rate 82 /min II Shawn Barber Work Phone: [facility] 11-18-2022 19:23-0400 Inhaled oxygen flow rate 3 L/min II Shawn Barber Work Phone: [facility] 11-18-2022 19:23-0400 Respiratory rate 18 /min II Shawn Barber Work Phone: [facility] 11-18-2022 19:23-0400 SaO2% (BldA) [Mass fraction] 96 % II Shawn Barber Work Phone: [facility] 11-18-2022 19:23-0400 Systolic blood pressure 194 mm[Hg] II Shawn Barber Work Phone: [facility] 11-18-2022 16:13-0400 Body height 152.4 cm II Shawn Barber Work Phone: [facility] 11-18-2022 16:13-0400 Body temperature 98.3 [degF] II Shawn Barber Work Phone: [facility] 11-18-2022 16:13-0400 Body weight 75.29 kg II Shawn Barber Work Phone: [facility] 08-27-2022 16:00-0400 Body height 152.4 cm Ziggy Dianne Other [employer] Other 08-27-2022 16:00-0400 Body mass index (BMI) [Ratio] 34.8 kg/m2 Ziggy Dianne Other [employer] Other 08-27-2022 16:00-0400 Body temperature 97.5 [degF] Ziggy Dianne Other [employer] Other 08-27-2022 16:00-0400 Body weight 80.83 kg Ziggy Dianne Other [employer] Other 08-27-2022 16:00-0400 Diastolic blood pressure 70 mm[Hg] Ziggy Dianne Other [facility] [employer] Other 08-27-2022 16:00-0400 Respiratory rate 18 /min Ziggy Dianne Other [facility] [employer] Other 08-27-2022 16:00-0400 SaO2% (BldA) [Mass fraction] 91 % Ziggy Dianne Other [facility] [employer] Other 08-27-2022 16:00-0400 Systolic blood pressure 124 mm[Hg] Ziggy Dianne Other [facility] [employer] Other 07-29-2022 09:08-0400 Blood Pressure Location Jacqui Lue [facility] 07-29-2022 09:08-0400 Diastolic blood pressure 89 mm[Hg] Jacqui Lue [facility] 07-29-2022 09:08-0400 Heart rate 66 /min Jacqui Lue [facility] 07-29-2022 09:08-0400 Systolic blood pressure 131 mm[Hg] Jacqui Lue [facility] 06-10-2022 10:24-0500 Blood Pressure Location Jacqui Lue [facility] 06-10-2022 10:24-0500 Diastolic blood pressure 80 mm[Hg] Jacqui Lue [facility] 06-10-2022 10:24-0500 Heart rate 77 /min Jacqui Lue [facility] 06-10-2022 10:24-0500 Systolic blood pressure 130 mm[Hg] Jacqui Lue [facility] 02-16-2022 13:05-0400 Blood Pressure Location Montero SALAM [facility] 02-16-2022 13:05-0400 Diastolic blood pressure 76 mm[Hg] Montero SALAM [facility] 02-16-2022 13:05-0400 Heart rate 68 /min Montero SALAM [facility] 02-16-2022 13:05-0400 Respiratory rate 30 /min Montero SALAM [facility] 02-16-2022 13:05-0400 SaO2% (BldA) [Mass fraction] 98 % Montero SALAM [facility] 02-16-2022 13:05-0400 Systolic blood pressure 142 mm[Hg] Montero SALAM [facility] 02-16-2022 13:00-0400 Respiratory rate 25 /min Montero SALAM [facility] 02-16-2022 13:00-0400 Systolic blood pressure 127 mm[Hg] Montero SALAM [facility] 02-16-2022 12:55-0400 Blood Pressure Location Montero SALAM [facility] 02-16-2022 12:55-0400 Diastolic blood pressure 71 mm[Hg] Montero SALAM [facility] 02-16-2022 12:55-0400 Heart rate 70 /min Montero SALAM [facility] 02-16-2022 12:55-0400 Respiratory rate 27 /min Montero SALAM [facility] 02-16-2022 12:55-0400 SaO2% (BldA) [Mass fraction] 97 % Montero SALAM [facility] 02-16-2022 12:55-0400 Systolic blood pressure 119 mm[Hg] Montero SALAM [facility] 02-16-2022 12:42-0400 Body temperature 96.98 [degF] Montero SALAM [facility] 02-16-2022 10:46-0400 Body temperature 96.8 [degF] Montero SALAM [facility] 12-31-2021 14:58-0400 Diastolic blood pressure 80 mm[Hg] Lani Lisy [facility] 12-31-2021 14:58-0400 Mean blood pressure 100 mm[Hg] Lani Lisy [facility] 12-31-2021 14:58-0400 Systolic blood pressure 140 mm[Hg] Lani Lisy [facility] 12-31-2021 14:54-0400 Blood Pressure Location Lani Lisy [facility] 12-31-2021 14:54-0400 Body temperature 97.7 [degF] Lani Lisy [facility] 12-31-2021 14:54-0400 Diastolic blood pressure 77 mm[Hg] Lani Lisy [facility] 12-31-2021 14:54-0400 Heart rate 69 /min Lani Lisy [facility] 12-31-2021 14:54-0400 Systolic blood pressure 144 mm[Hg] Lani Wasserman [facility] 12-13-2021 11:05-0400 Body weight 79.56 kg Smiley Davila Other [employer] Other 12-13-2021 11:05-0400 Diastolic blood pressure 70 mm[Hg] Smiley Davila Other [employer] Other 12-13-2021 11:05-0400 Respiratory rate 18 /min Smiley Davila Other [employer] Other 12-13-2021 11:05-0400 SaO2% (BldA) [Mass fraction] 94 % Smiley Davila Other [employer] Other 12-13-2021 11:05-0400 Systolic blood pressure 129 mm[Hg] Smiley Davila Other [employer] Other Encounters Encounter Date Encounter Type Care Provider Facility Start: 05-14-2023 ambulatory Lani Wasserman Facili ty:[facility] Start: 04-29-2023 End: 04-29-2023 Subsequent hospital visit by physician Doreen Garcia Echo/Vasc Room 2 [facility] Comment on above: Nonrheumatic aortic valve stenosis; Pulmonary hypertension (CMS/HCC) Start: 04-28-2023 End: 04-29-2023 ambulatory Jacqui Michael Facility:[facility] Start: 04-28-2023 End: 04-28-2023 Patient encounter procedure Jacqui Michael [facility] Start: 04-20-2023 ambulatory Jacqui Michael Facility:[facility] Start: 04-05-2023 End: 04-05-2023 ambulatory SHAWN BARBER Not Available Start: 03-30-2023 End: 03-30-2023 Office outpatient visit 25 minutes 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 Phone: [facility] Comment on above: Paroxysmal atrial fi brillation ([facility]/HCC) (Primary Dx); Anticoagulated; Nonrheumatic aortic valve stenosis; Abnormal echocardiogram; Pulmonary hypertension ([facility]); Stage 3a chronic kidney disease ([facility]); Current smoker; Diabetes mellitus type II, non insulin dependent ([facility]); BMI 31.0-31.9,adult; Mixed hyperlipidemia; Essential hypertension Start: 02-22-2023 End: 02-23-2023 ambulatory Jacqui Michael Facility[facility] Start: 02-22-2023 End: 02-22-2023 Patient encounter procedure Jacqui Michael [facility] Start: 02-03-2023 End: 02-04-2023 ambulatory Jacqui Michael Facility[facility] Start: 02-03-2023 End: 02-04-2023 ambulatory Jacqui Michael Facility:[facility] Start: 02-03-2023 End: 02-03-2023 Patient encounter procedure Jacqui Michael [facility] Start: 12-29-2022 End: 12-30-2022 ambulatory INES WELCH Facility:[facility] [place] Start: 12-29-2022 End: 12-29-2022 Patient encounter procedure INES WELCH [facility] Start: 12-28-2022 Patient encounter procedure Shawn Barber Work Phone[facility] [address] DO Work Phone: Start: 12-28-2022 ambulatory Annika Kaba Facility:1 [id number] Start: 11-21-2022 ambulatory Annika Kaba Facility:9 090 Start: 11-20-2022 ambulatory Annika Kaba Facility:9 090 Start: 11-19-2022 ambulatory Annika Kaba Facility:9 090 Start: 11-18-2022 ambulatory Annika Kaba Facility:9 090 Start: 11-18-2022 End: 11-21-2022 Evaluation and management of inpatient Hilary Mischler Facility:[facility] Start: 11-18-2022 End: 11-21-2022 Evaluation and management of inpatient MARTHA Barber Work Phone: [facility] [facility] Work Phone: Start: 10-27-2022 End: 10-27-2022 ambulatory PHILL SIMPSON [facility] Start: 09-22-2022 End: 09-22-2022 ambulatory SILVA [facility] Start: 09-11-[address] SHAWN BARBER Facilit y:H1 Start: 09-06-2022 End: 09-08-2022 Evaluation and management of inpatient DR LALI RIVERA . Facility:H1 Start: 08-27-2022 End: 08-27-2022 ambulatory Ziggy Morganr Other [facility] Other Start: 08-27-2022 Office outpatient ne w 45 minutes Ziggy Dianne [facility] Nephrology Bucky Start: 07-29-2022 End: 07-30-2022 ambulatory Jacqui Michael Facility: Juan Start: 07-29-2022 End: 07-29-2022 Patient encounter procedure Jacqui Michael [facility] Juan Start: 07-22-[address] SHAWN Virk y:H1 Start: 07-08-2022 End: 07-09-2022 ambulatory INES WELCH Facility:EU Juan Start: 07-08-2022 End: 07-08-2022 Patient encounter procedure INES WELCH [facility] Start: 07-07-2022 End: 07-07-[address] SILVA MAXWELL Facility:H1 Start: 07-06-2022 End: 07-06-2022 ambulatory SILVA MAXWELL [facility] Start: 06-15-2022 End: 06-16-2022 ambulatory INES WELCH Facility:H1 Start: 06-14-2022 End: 06-15-2022 ambulatory INES WELCH Facility:H1 Start: 06-10-2022 End: 06-11-2022 ambulatory Jacqui Michael Facility[facility] Start: 06-10-2022 End: 06-10-2022 Lab Drop off Jacqui iMchael [facility] Start: 06-10-2022 End: 06-11-2022 ambulatory Jacqui Michael Facility:[facility] Start: 06-10-2022 End: 06-10-2022 Patient encounter procedure Jacqui Michael [facility] Start: 05-05-2022 End: 05-06-[address] ANITA KEYS Facility:H1 Start: 04-16-2022 End: 04-16-2022 ambulatory MADI SANCHEZ Facility:H1 Start: 04-15-2022 End: 04-28-[address] JOSE SON . Facility:H1 Start: 04-13-2022 End: 04-13-2022 ambulatory [facility] Start: 04-10-2022 End: 04-13-2022 Evaluation and management [...] End: 02-16-2022 Patient encounter procedure Kylah BELL [facility] Start: 02-06-2022 End: 02-06-2022 Patient encounter procedure Lani Wasserman [facility] Start: 12-31-2021 End: 05-07-2022 Recurring Kylah BELL [facility] Start: 12-31-2021 End: 12-31-2021 Patient encounter procedure Lani Wasserman [facility] Start: 12-13-2021 End: 12-13-2021 ambulatory Smiley Davila Other [employer] Other Start: 12-13-2021 Office outpatient ne w 20 minutes Smiley Davila [facility] Urgent Care Bucky Start: 11-28-2021 End: 11-28-2021 ambulatory JOHN RENEE Facility:H1 Start: 10-07-2021 End: 10-08-[address] MAHAMED RM Facility:H1 Start: 09-23-2021 End: 09-24-[address] MAHAMED RM Facility:H1 Start: 08-24-2017 End: 08-25-2017 Ambulatory KASANDRA BROWN Facility:[facility] Procedures Date Procedure Procedure Detail Performing Clinician Start: 04-29-2023 Echo tthrc r-t 2d w/ wom-mode compl spec&colr d Annika Kaba COVER MAKING MACHINE OPERATOR-VISUAL TRAINING AIDE Work Phone: Start: 04-13-2023 Mammography Doreen 2 Start: 02-22-2023 Transurethral cystoscopy Jacqui Lue Start: 11-21-2022 Plain chest X-ray II Da noni Barber Work Phone: Start: 11-18-2022 Plain chest X-ray II Da noni Barber Work Phone: Start: 09-22-2022 Follow-up visit Follow-up SILVA KOROMA Start: 09-07-2022 Transfusion of Nonau tologous Red Blood Cells into Peripheral Vein, Percutaneous Approach DR MAHAMED RM Start: 02-16-2022 Colonoscopy Colonoscopy Kylah Perez Start: 12-02-2020 Cystoscopy Jacqui Lue Start: 05-30-2020 Mammography Annika lyle COVER MAKING MACHINE OPERATOR-VISUAL TRAINING AIDE Work Phone: Start: 05-03-2020 Colonoscopic polypectomy Shawn Michel Sunil Work Phone: Cholecystectomy Lani conklin Colonoscopy Lani Wasserman Extraction of wisdom tooth D shelly Pearson Barber Work Phone: H/O: hysterectomy Lani Lee veras Hernia repair Shawn Barber Work Phone: History of hernia repair Luna dariela Lisy Hysterectomy Shawn Pearson Barber Work Phone: Small intestine excision Juan Manuel iel Michel Barber Work Phone: Plan of Treatment Date Care Activity Detail Author Start: 02-17-2032 Screening for malignant neoplasm of colon [facility] Start: 04-29-2024 Echocardiography Echocardiogram [facility] Start: 04-13-2024 Screening for malignant neoplasm of breast Mammogram [facility] Start: 11-19-2023 Echocardiography Echocardiogram [facility] Start: 05-12-2023 End: 05-12-2023 Patient encounter procedure 05/12/2023 2:30 PM EST Office Visit [facility] [address] [place] [address] Annika Kaba, COVER MAKING MACHINE OPERATOR-VISUAL TRAINING AIDE [address] [place] [address] [facility] Start: 04-29-2023 End: 04-29-2023 Patient encounter procedure 04/29/2023 2:30 PM EST [facility] [address] [place] [address] [facility] Start: 03-30-2023 End: 03-30-2024 Basic metabolic 2000 panel - Serum or Plasma Basic Metabolic Panel Lab Routine Paroxysmal atrial fibrillation (CMS/HCC) Expected: 03/30/2023 (Approximate), Expires: 03/30/2024 [facility] Service Area Work Phone: Comment on above: Expected: 03/30/2023 (Approximate), Expi res: 03/30/2024 Start: 03-30-2023 End: 03-30-2024 CBC panel - Blood by Automated count CBC Lab Routine Paroxysmal atrial fibrillation (CMS/HCC) Anticoagulated Expected: 03/30/2023 (Approximate), Expires: 03/30/2024 [facility] Work Phone: Comment on above: Expected: 03/30/2023 (Approximate), Expi res: 03/30/2024 Start: 03-30-2023 End: 03-30-2025 Heart Transthoracic Transthoracic Echo (TTE) Complete Echocardiography Routine Nonrheumatic aortic valve stenosis Pulmonary hypertension (CMS/HCC) Expected: 03/30/2023 (Approximate), Expires: 03/30/2025 [facility] Work Phone: Comment on above: Expected: 03/30/2023 (Approximate), Expi res: 03/30/2025 Start: 11-23-[address] [facility] Start: 11-23-2022 [facility] Start: 11-22-[address] [facility] Start: 11-22-2022 [facility] Start: 11-21-[address] [facility] Start: 11-21-2022 End: 11-21-2022 [facility] Start: 11-20-[address] [facility] Start: 11-20-2022 [facility] Start: 11-19-2022 Referral to desk assistant [facility] Start: 11-19-[address] [facility] Start: 11-19-2022 End: 11-19-2022 [facility] Start: 11-18-[address] [facility] Start: 11-18-2022 [facility] Start: 05-30-2021 Screening for malignant neoplasm of breast Mammogram [facility] Start: 10-04-2020 Screening for osteoporosis Bone Density Scan [facility] Start: 04-02-2016 Zoster Vaccines (2 of 3) Zoster Vaccines (2 of 3) [facility] Start: 2008 Hepatitis B Vaccines (1 of 3 - Risk 3-dose series) Hepatitis B Vaccines (1 of 3 - Risk 3-dose series) [facility] Start: 1970 DTaP/Tdap/Td Vaccines (1 - Tdap) DTaP/Tdap/Td Vaccines (1 - Tdap) [facility] Start: 12-08-1967 Hepatitis A Vaccines (1 of 2 - Risk 2-dose series) Hepatitis A Vaccines (1 of 2 - Risk 2-dose series) [facility] Start: 12-08-1967 Urine screening for protein Diabetes: Urine Protein Screening [facility] Start: 1966 Hepatitis C screening Hepatitis C Screening [facility] Start: 1958 Diabetic foot examination Diabetes: Foot Exam [facility] Start: 1958 Glaucoma screening Diabetes: Retinopathy Screening [facility] Start: 06-09-1949 COVID-19 Vaccine (#1) COVID-19 Vaccine (#1) [facility] Start: 1948 Creatinine measurement Creatinine Level [facility] Start: 1948 Hemoglobin A1c measurement Diabetes: Hemoglobin A1C [facility] Start: 1948 Lipid panel Lipid Panel [facility] Start: 1948 Medicare Annual Wellness Visit Medicare Annual Wellness Visit (AWV) [facility] Start: 1948 Potassium measurement Potassium Level [facility] Start: 1948 Screening for malignant neoplasm of colon [facility] Patient referral [facility] Work Phone: End: 04-29-2023 [facility] Service Area Work Phone: Comment on above: Once for 1 Occurrences starting 04/29/20 until 04/29/2023 Immunizations Immunization Date Immunization Notes Care Provider Rajan lundberg 03-01-2023 influenza virus vaccine, unspecified formulation Jacqui Lue [facility] 02-05-2022 influenza virus vaccine, unspecified formulation Jacqui Lue [facility] 01-31-2022 influenza virus vaccine, unspecified formulation Jacqui Lue [facility] 01-31-2022 influenza, high dose seasonal, preservative-free Shawn B Barber Work Phone: [facility] 250 DO Work Phone: 03-05-2021 influenza virus vaccine, unspecified formulation Jacqui Lue [facility] 03-05-2021 influenza, high dose seasonal, preservative-free Shawn B Barber Work Phone: [facility] 250 DO Work Phone: 03-22-2020 influenza virus vaccine, unspecified formulation Jacqui Lue [facility] 03-15-2020 influenza virus vaccine, unspecified formulation Jacqui Lue [facility] 03-15-2020 influenza, high dose seasonal, preservative-free Shawn B Barber Work Phone: [facility] DO Work Phone: 02-09-2019 influenza virus vaccine, unspecified formulation Jacqui Lue [facility] 02-09-2019 influenza, high dose seasonal, preservative-free Shawn B Barber Work Phone: [facility] 250 DO Work Phone: 02-17-2018 influenza virus vaccine, unspecified formulation Jacqui Lue [facility] 02-17-2018 influenza, high dose seasonal, preservative-free Shawn B Barber Work Phone: [facility] 250 DO Work Phone: 01-25-2017 influenza virus vaccine, unspecified formulation Jacqui Lue [facility] 01-25-2017 influenza, high dose seasonal, preservative-free Shawn B Barber Work Phone: [facility] 250 DO Work Phone: 02-19-2016 influenza virus vaccine, unspecified formulation Jacqui Lue [facility] 02-19-2016 influenza, injectabl e, quadrivalent, contains preservative Shawn B Barber Work Phone: [facility] 250 DO Work Phone: 02-06-2016 zoster vaccine, live Jacqui L ue [facility] 02-03-2016 pneumococcal polysaccharide vaccine, 23 valent Jacqui Lue [facility] 04-12-2015 pneumococcal conjuga te vaccine, 13 valent Jacqui Lue [facility] NEGATED: Highlighted row has not occurred!12-31-2021 influenza virus vaccine, unspecified formulation Lani Wasserman [facility] Payers Date Payer Category Payer Medicaid MEDICAID MEDICAI D [id number] 2021-Present [address] [place] [address] [id number] 2014 Unknown [id number] 2011 Medicare MEDICARE MEDICAR E PART A AND B [id number] 2011-Present [address] [place] [address] [id number] [id number] 1959 Medicaid [id number] 2.16.840.1.085236.19 1959 Medicare [id number] 2.16.840.1.561671.19 1959 Self-pay 1959 Unknown [id number] 2.16.8 40.1.321034.19 1948 Unknown [id number] 2.16.840.1.914160.3.579.2.593 1948 Unknown [id number] 2.16.840.1.638027.3.579.2.593 1948 Unknown [id number] 2.16.840.1.209833.3.579.2.593 1948 Unknown [id number] 2.16.840.1.749636.3.579.2.593 1948 Unknown [id number] 2.16.840.1.820410.3.579.2.593 1948 Unknown [id number] 2.16.840.1.264375.3.579.2.593 1948 Unknown [id number] 2.16.840.1.519332.3.579.2.593 1948 Unknown [id number] 2.16.840.1.577710.3.579.2.593 1948 Unknown [id number] 2.16840.1.339387.3.579.2.593 1948 Unknown [id number] 2.16840.1.377685.3.579.2.593 1948 Unknown [id number] 2.840.1.077203.3.579.2.593 1948 Unknown [id number] 2.840.1.699276.3.579.2.593 1948 Unknown [id number] 2.840.1.517427.3.579.2.593 1948 Unknown [id number] 2.840.1.101468.3.579.2.593 1948 Unknown [id number] 2.840.1.414614.3.579.2.593 1948 Unknown [id number] 2.840.1.743088.3.579.2.593 1948 Unknown [id number] 2.840.1.696654.3.579.2.593 1948 Unknown [id number] 2.16840.1.175622.3.579.2.593 1948 Unknown [id number] 2.16840.1.326524.3.579.2.356 1948 Unknown [id number] 2.16840.1.540448.3.579.2.356 1948 Unknown [id number] 2.16.840.1.092052.3.579.2.356 1948 Unknown [id number] 2.840.1.379700.3.579.2.356 1948 Unknown [id number] 2.16840.1.690477.3.579.2.356 1948 Unknown [id number] 2.840.1.778318.3.579.2.1259 1948 Unknown [id number] 2.840.1.747621.3.579.2.72 1948 Unknown [id number] 2.840.1.300190.3.579.2.72 1948 Unknown [id number] 2.840.1.686362.3.579.2.72 1948 Unknown [id number] 2.840.1.033803.3.579.2.72 1948 Unknown [id number] 2.840.1.646656.3.579.2.72 1948 Unknown [id number] 2.840.1.776433.3.579.2.72 1948 Unknown [id number] 2.840.1.447917.3.579.2.72 1948 Unknown [id number] 2.840.1.700556.3.579.2.72 1948 Unknown [id number] 2.840.1.775760.3.579.2.72 1948 Unknown [id number] 2.840.1.406624.3.579.2.72 1948 Unknown [id number] 2.840.1.659576.3.579.2.727 Medicare [id number] Unknown [id number] 2.840.1.757324.3.579.2.531 Unknown Unknown [id number] Social History Date Type Detail Facility Start: 12-28-2022 End: 03-30-2023 Sex Assigned At [facility] Other Start: 12-31-2021 Tobacco smoking status Light t obacco smoker (finding) [facility] Tobacco smoking status Never Rosse [facility] Start: 11-18-2022 End: 11-19-2022 Tobacco smoking status NHIS Smoker (finding) [facility] Start: 1950 Sex Assigned At Female F [facility] Start: 12-28-2022 End: 03-30-2023 Caffeine use Caffeine use [facility] Comment on above: 2 cups coffee daily most of the time; 1/2 ppd; Start: 12-29-2022 End: 04-28-2023 Tobacco smoking status Heavy tobacco smoker (finding) [facility] Start: 03-30-2023 Tobacco smoking stat us NHIS Smokes tobacco daily [facility] Start: 03-30-2023 Tobacco use and exposure Smokeless tobacco non-user [facility] Work Phone: Start: 03-30-2023 Alcohol intake Lifetime non-d jeffy (finding) [facility] Work Phone: Start: 03-30-2023 Gender identity Identifies as female gender (finding) [facility] Work Phone: Start: 03-30-2023 Sexual orientation Heterosexual (fin ding) [facility] Work Phone: Start: 03-20-2023 End: 04-29-2023 Exposure to SARS-CoV-2 (event) Not sure [facility] Goals Date Patient Goal Desired Activity /State Functional Status Date Assessment Result Facility 04-28-2023 Functional Status N/A [facility] 02-12-2023 Functional Status N/A [facility] 02-03-2023 Functional Status N/A [facility] 12-29-2022 Functional Status N/A [facility] 11-21-2022 Functional status Patient at Baseline [facility] Work Phone: 07-29-2022 Functional Status N/A [facility] 06-10-2022 Functional Status N/A [facility] 02-16-2022 Functional Status N/A [facility] 12-31-2021 Functional Status N/A [facility] Mental Status Date Assessment Result Facility 11-21-2022 Cognitive function Cognitive Sta tus Patient at Baseline [facility] Work Phone: Clinical Notes 04-02-2021 to 04-28-2023 Assessment & Plan Note - NATALIE Gonsalez - 04/03/2023 12:04 PM ESTAssessment & Plan Note - NATALIE Gonsalez - 04/03/2023 12:04 PM ESTPatient Instructions Note Date & Type Note Facility 04-28-2023 Hospital Discharg e instructions Patient Education 04/28/2023 10:24:50 Urinary Tract Infection, Adult, Djlk-oi-Mjup Urinary Tract Infection, Adult A urinary tract [...] Follow these instructions at home: Medicines Take mrie-pgq-yzljwwu and prescription medicines only as told by [...] provider. Document Revised: 11/29/2020 Document Reviewed: 11/29/2020 [employer] Patient Education 2022 [employer]. Follow Up Care 02/22/2023 10:37:46 With:Alec XIE, CARLY Grove, URO Address: When:Within 3 Month(s) [facility] 04-03-2023 Evaluation + Plan note Associated Problem(s): Current smoker Continued every day tobacco use. Have reviewed the negative cardiovascular impact of nicotine. Continues to decline pharmacological assistance. [facility] Work Phone: 04-03-2023 Evaluation + Plan note Associated Problem(s): Stage 3 chronic kidney disease (CMS/HCC) Report establish follow-up with Dr. Guerra Last creatinine in our system was 4.2 [facility] Work Phone: 04-03-2023 Miscellaneous Notes Associated Problem(s): [...] Aortic Stenosis p46;m26 documented in this encounter [facility] Work Phone: 04-03-2023 Evaluation + Plan note Associated Problem(s): Diabetes mellitus type II, non insulin dependent (CMS/HCC) Maintained on statin No LONI/ARB due to CKD [facility] Work Phone: 04-03-2023 Evaluation + Plan note Associated Problem(s): Anticoagulated CHADS VASc 4 chronically anticoagulated full dose Eliquis age 72, weight 160 pounds. [facility] Work Phone: 04-03-2023 Evaluation + Plan note Associated Problem(s): Essential hypertension Optimal in office [facility] Work Phone: 04-03-2023 Evaluation + Plan note Associated Problem(s): Hyperlipidemia Low intensity statin [facility] Work Phone: 04-03-2023 Evaluation + Plan note Associated Problem(s): Abnormal echocardiogram October 2022 TTE LVEF 60 to 65% LA moderate/severe Aortic stenosis peak 46, mean 26 RVSP 84 mmHg (denies prior PE, longstanding tobacco abuse, chronic hypoxia and COPD) RV function and size were reportedly normal [facility] Work Phone: 04-03-2023 Evaluation + Plan note Associated Problem(s): A-fib (CMS/[facility]) Daughter believes this was diagnosed during one of the hospitalizations prior to being under the care of of an [facility]. Regular rate and rhythm on exam [facility] Work Phone: 04-03-2023 Evaluation + Plan note Associated Problem(s): Aortic stenosis October 2022 TTE Aortic Stenosis p46;m26 [facility] Work Phone: 03-30-2023 History of Presen [...] December visit I requested cardiology records from [place] [facility] and those were not obtained. She [...] incidence of candidiasis. Do not swallow. HYDROcodone-acetaminophen ([place]) 5-325 mg tablet 1 tablet, oral levETIRAcetam [...] October 2022 TTE Aortic Stenosis p46;m26 A-fib ([facility]) Daughter believes this was diagnosed during one [...] Diabetes mellitus type II, non insulin dependent ([facility]) Maintained on statin No LONI/ARB due to CKD Stage 3 chronic kidney disease ([facility]) Report establish follow-up with Dr. Guerra Last [...] contact the office if new symptoms arise. 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 Voice recognition software was utilized to prepare this document. documented in this encounter [facility] Work Phone: 03-30-2023 Instructions NATALIE Gonsalez - [...] contact the office if new symptoms arise. 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 Voiding after [...] you have a fever over 100 degrees. [facility] 02-22-2023 [facility] Discharg e instructions Patient Education 02/22/2023 [...] Up Care 02/03/2023 10:05:26 With:Jacqui Michael Address: [address] [place] [address] [phone] Business (1) [facility] [place] [address] [phone] Business (1) When: Unknown Comments:Office to schedule follow up in 1 to 2 months [facility] 02-03-2023 [facility] Discharg e instructions Patient Education 02/03/2023 10:01:15 Urinary Tract Infection, Adult, Fdap-pp-Fshr Urinary Tract Infection, Adult A urinary tract [...] Follow these instructions at home: Medicines Take reqa-rma-rgffhub and prescription medicines only as told by [...] provider. Document Revised: 11/29/2020 Document Reviewed: 11/29/2020 [employer] Patient Education 2022 [employer]. Follow Up Care 07/29/2022 09:55:50 With:Alec XIE, CARLY Grove, URO Address: When: Unknown Comments:Sched cysto [facility] 12-29-2022 Hospital Discharg e instructions Patient [...] Treatment for this condition includes: Antibiotic medicine. Nvdc-pgl-bymolog medicines to treat discomfort. Drinking enough water [...] Follow these instructions at home: Medicines Take wwoi-vvs-zsrfpbg and prescription medicines only as told by [...] provider. Document Revised: 11/29/2020 Document Reviewed: 11/29/2020 [employer] Patient Education 2022 [employer]. Follow Up Care 12/23/2022 14:08:39 With:Alec XIE, CARLY Grove, URO Address: When: Unknown [facility] 11-21-2022 Progress note Note Date/Time November 21, 2022 11:31am [facility] [address] [place] [address] Cardiology Progress Note Signed Patient: Martin Hagen MR#: [id number] : 1950 Acct:[id number] Age/Sex: 71 / F Adm Date: 3 Loc: 4P Room: 4R7895-1 Type: ADM IN Attending Dr: Gina Poole [...] % (Auto) 70.8 Lymph % (Auto) 18.9 Spencer % (Auto) 7.3 Eos % (Auto) 2.7 Baso % (Auto) 0.3 Nucleat RBC Rel Count 0.1 Neut # (Auto) 4.1 Lymph # (Auto) 1.1 Spencer # (Auto) 0.4 Eos # (Auto) 0.2 Baso # (Auto) 0.0 PHA Creatinine Clear Sodium Potassium Chloride Carbon Dioxide Anion Gap BUN Creatinine Est GFR (CKD-EPI) Glucose POC Glucose 123 135 Calcium 11/21/22 11/21/22 04:47 08:37 Corrected WBC Uncorrected WBC Count RBC Hgb Hct MCV MCH MCHC RDW Plt Count MPV Neut % (Auto) Lymph % (Auto) Spencer % (Auto) Eos % (Auto) Baso % (Auto) Nucleat RBC Rel Count Neut # (Auto) Lymph # (Auto) Spencer # (Auto) Eos # (Auto) Baso # [...] aggressive diuresis Documented By: Colin Carrillo MD, [facility] 3 1127 Signed By: <Electronically signed by MD PLACIDO Carrillo> 11/21/22 1131 [facility] Work Phone: 1(259) 764-533807-21-2023 Progress note Author Gina Poole [facility] November 20, 2022 2:12pm Note Date/Time November 20, 2022 2:12 pm [facility] [address] [place], [place] [id number] Hospitalist Progress Note Signed Patient: Martin Hagen MR#: [id number] : 1950 Acct:[id number] Age/Sex: 71 / F Adm Date: 3 Loc: 4 Room: [address] [place] [address] Type: ADM IN Attending Dr: Gina Poole [...] 18 151/71 H 96 Nasal Cannula 4 07/21/23 11:58 11/20/22 12:30 11/20/22 12:30 11/20/22 11:58 [...] Insuln.Pen SUBCUT 11/19/23 11:59 Not Given TID.WM.[facility] Protocol Magnesium Oxide 400 mg 11/19/22 [...] signed by Gina Poole DO> 11/20/22 1412 [facility] Work Phone: 1(815) 891-885107-21-2023 Progress note Author Rey Arriaga [facility] November 20, 2022 10:30am Note Date/Time November 20, 2022 10:3 0am [facility] [address] [place] [address] Cardiology Progress Note Signed Patient: Martin Hagen MR#: [id number] : 1950 Acct:[id number] Age/Sex: 71 / F Adm Date: 3 Loc: Room: [address] [place] [address] Type: ADM IN Attending Dr: Gina Poole [...] MPV Neut % (Auto) Lymph % (Auto) Spencer % (Auto) Eos % (Auto) Baso % (Auto) Nucleat RBC Rel Count Neut # (Auto) Lymph # (Auto) Spencer # (Auto) Eos # (Auto) Baso # [...] % (Auto) 68.4 Lymph % (Auto) 22.4 Spencer % (Auto) 6.7 Eos % (Auto) 2.1 Baso % (Auto) 0.4 Nucleat RBC Rel Count 0.1 Neut # (Auto) 3.7 Lymph # (Auto) 1.2 Spencer # (Auto) 0.4 Eos # (Auto) 0.1 [...] MPV Neut % (Auto) Lymph % (Auto) Spencer % (Auto) Eos % (Auto) Baso % (Auto) Nucleat RBC Rel Count Neut # (Auto) Lymph # (Auto) Spencer # (Auto) Eos # (Auto) Baso # [...] signed by MD Rey Arriaga> 11/20/22 [address] [facility] Work Phone: 1(406) 918-781407-20-2023 Consult note Author Rey Arriaga [facility] November 19, 2022 2:59pm Note Date/Time November 19, 2022 2:59 pm [facility] [address] [place] [address] Cardiology Consult Note Signed Patient: Martin Hagen MR#: [id number] : 1950 Acct:[id number] Age/Sex: 71 / F Adm Date: 3 Loc: 4 Room: 7D8189-4 Type: ADM IN Attending Dr: Gina Poole DO Copies to: MD Gina Arambula II, DO Rey Arriaga MD~ Cardiology HPI History of Present Illness [...] U/L B-Natriuretic Peptide 2080.0 H (5-100) pg/mL 0711/19/22 11/19/22 Range/Units 20:06 03:13 11:30 AST (13-39) [...] Lymph # (Auto) 1.5 1.6 (1.00-4.8) x10E3/uL Spencer # (Auto) 0.4 0.4 (0.0-0.8) x10E3/uL Eos [...] signed by MD Rey Arriaga> 11/19/22 1459 [facility] Work Phone: 1(809) 127-797507-20-2023 Progress note Author Gina Poole [facility] November 19, 2022 11:54am Note Date/Time November 19, 2022 11:5 4am [facility] [address] [place] [address] Hospitalist Progress Note Signed Patient: Martin Hagen MR#: [id number] : 1950 Acct:[id number] Age/Sex: 71 / F Adm Date: 3 Loc: 4 Room: [address] [place] [address] Type: ADM IN Attending Dr: Gina Poole [...] <Electronically signed by Gina Poole DO> 11/19/[address] [place] [address] Work Phone: 1(762) 163-197507-20-2023 History and physical note Author Gina Poole [facility] November 18, 2022 10:13pm Note Date/Time November 18, 2022 10:1 1pm [facility] [address] [place] [address] Hospitalist H&P Signed Patient: Martin Hagen MR#: [id number] : 1950 Acct:[id number] Age/Sex: 71 / F Adm Date: 3 Loc: 4 Room: [id number] Type: ADM IN Attending Dr: Gina Poole [...] % (Auto) 22.5 % (.) 11/18/22 17:51 Spencer % (Auto) 5.7 % (.) 11/18/22 17:51 Eos % (Auto) 1.7 % (.) 11/18/22 17:51 Baso % (Auto) 0.7 % (.) 11/18/22 17:51 Nucleat RBC Rel Count 0.0 /100 WBC (0-0.5) 11/18/22 17:51 Neut # (Auto) 4.7 x10E3/uL (1.8-7.7) 11/18/22 17:51 Lymph # (Auto) 1.5 x10E3/uL (1.00-4.8) 11/18/22 17:51 Spencer # (Auto) 0.4 x10E3/uL (0.0-0.8) 11/18/22 17:51 [...] days): 3 Documented By: Gina Poole DO 11/18/22 22 02 Signed By: <Electronically signed by Gina Poole DO> 11/18/22 [address] [facility] Work Phone: 1(470) 938-953506-27-2023 NoteHypertension is well controlled 108/62 Continue all meds Renal function stable for her- will continue to monitor and pt states she is to start F/[facility]Un[facility]-27-2023 NoteNYHC- III- currently fluid overloaded and weight gain of 15 pounds in 2 weeks Continue GDMT- farxiga Diuretic therapy-increase bumex to 2mg in am and 1 mg in pm, repeat BMP next week Monitor daily weights, I&O, fluid restriction 1.5-2L/day, renal function and electrolytes- RTC 1month for re-evalautionUnMer[facility] Health St[facility]06-27-2023 Note Repeat limited echo to assess RV function, RVSP- rt sided pressures, and noted D shaped septum on inpt echo.[facility]06-27-2023 Note QLZ0pm3-MUBn= 4 continue metoprolol for rate control, and eliquis anticoagulationUnMercy Health St. [facility]06-27-2023 NotePatient here for follow up [facility] for CHF. She was seen as inpatient [...] weakness. All other systems reviewed and are negative.[facility] 10-27-2022 NoteUTP CARDIOLOGY PROGRESS NOTE HPI: Martin Hagen is a 71 y.o. female here for No chief complaint on file. Patient here for follow up [facility] for CHF. She was seen as [...] fever, chills. She recently was inpt at [facility] for resp failure, exacerbation of HFpEF, [...] Tachycardia - sinus Hypertension Paroxysmal atrial fibrillation; [id number] - 4 (age, female, HTN, HF) - [...] reviewed CV Testin10/09/22 Echo (more content not included)...[facility]05-23-2023 Note [place] [facility] Note Chief Complaint: patient is [...] Eliquis. HPI: Martin was originally seen by [facility] during her admission to [facility] at the beginning of March,. She [...] 04/13/2022 Today she was just discharged from [facility] where she was admitted for UTI. [...] a past medical history of Atrial fibrillation ([facility]) and CHF (congestive heart failure) ([facility]). Surgical History She has no past surgical [...] pressures. Event monitor: Sinus (more content not included)...[facility]04-27-2023 Evaluation note* Encounter Date Diagnosis Assessment Notes [...] We will check PTH and vitamin D. [facility] Other 03-29-2023 Hospital Discharge instructions Patient Education [...] 04/19/2006 Document Revised: 01/06/2019 Document Reviewed: 03/19/2017 [employer] Patient Education 2020 [employer]. Follow Up Care 06/10/2022 11:44:43 With:Alec XIE, Jacqui Nieves, URL, URO Address: When:Within 6 Month(s) [facility] 03-06-2023 [facility] Note Chief Complaint: Patient here for 3 mo follow up CHF and afib. She was started on spironolactone at last apt in Apr 2022 by Linette Sanchez CNP. Had labs a few days after that. Denies chest pain and palpitations. Denies lightheadedness and bleeding on Eliquis. HPI: Martin was originally seen by [facility] during her admission to [facility] at the beginning of March,. She [...] 04/13/2022 Today she was just discharged from [facility] where she was admitted for UTI. [...] fraction (HFrEF) Tachycardia Hypertension Paroxysmal atrial fibrillation; [id number] - 4 (age, female, HTN, HF) - she requires long-term anticoagulation for stroke prophylaxis. She denies bleeding issues. Continue Eliquis 5mg BID. Nonrheumatic aortic valve stenosis; moderate on echocardiogram 08/2021 Benign hypertensive kidney disease with chronic kidney disease stage I through stage IV Plan: The patient's daughter tells me that her mother's heart rate is typical (more content not included)...[facility]02-08-2023 Hospital Discharge instructions Patient Education 06/10/2022 10:53:36 [...] Follow these instructions at home: Medicines Take qhzp-ril-xoyfuqc and prescription medicines only as told by [...] or the blood stops without treatment. Take qwte-ues-fohsxoz and prescription medicines only as told by your health care provider. Drink enough fluid to keep your urine clear or pale yellow. This information is not intended to replace advice given to you by your health care provider. Make sure you discuss any questions you have with your health care provider. Document Released: 04/19/2006 Document Revised: 09/13/2019 Document Reviewed: 05/22/2017 [employer] Patient Education 2020 [employer]. Follow Up Care 05/06/2022 14:07:41 With:Alec XIE, CARLY Grove, URO Address: When: Unknown [facility] 12-12-2022 NotePatient here for follow up [facility] for CHF. She was seen as inpatient consult on 03/06/2022 by Madi Sanchez CNP. She was just discharged from [facility] again today for UTI and pneumonia. She will be having iron infusions set up soon for anemia. Denies chest pain and bleeding on Eliquis. Review of Systems Cardiovascular: Positive for dyspnea on exertion. Respiratory: Positive for shortness of breath. Musculoskeletal: Positive for muscle weakness. Neurological: Positive for seizures (hx of). All other systems reviewed and are negative.[facility] 04-13-2022 NoteCardiovascular Medicine [facility] SUBJECTIVE Chief Complaint Patient presents with Congestive Heart Failure Atrial Fibrillation Martin Hagen is a 71 y.o. female here for follow-up. HPI Martin was originally seen by [facility] during her admission to [facility] at the beginning of March,. She [...] 04/13/2022 Today she was just discharged from [facility] where she was admitted for UTI. [...] is warm and dry. (more content not included)...[facility]10-17-2022 Hospital Discharge instructions Patient Education 02/16/2022 13:00:15 [...] drinks. ?Tomatoes and foods made with tomatoes. ?[place] or spicy foods. ?Chocolate and peppermint. Do not drink alcohol. General instructions Take znjd-auy-sprzoyd and prescription medicines only as told by [...] unsweetened, w/added ascorbic acid 1 cup 0.5 [place] 1 cup 0.7 Vegetables Cooked Green beans 1 cup 4.0 Carrots 1/2 cup sliced 2.3 Peas 1 cup 8.8 Potato (baked, with skin) 1 medium potato 3.8 Raw [place] (with peel) 1 cucumber 1.5 Lettuce 1 [...] Peanuts 1/2 cup 7.9 Chart from [facility] 2013. 02/16/2022 13:00:15 Colonoscopy, Care After Surgery [place] (Custom) Colonoscopy Care After Surgery Please read the instructions outlined below and refer to this sheet in the next few weeks. These discharge instructions provide you with general information on [facility] Your doctor may also give you specific [...] Up Care 12/31/2021 15:48:46 With:Kylah BELL Address: [facility] [employer] [address] [place] [address] Business (1) When: Unknown Comments:Call for any problems.Office will call to schedule follow up appointment (appointment for 1-2 weeksfrom today) [facility]10-17-2022 Evaluation + Plan noteExtracted from: Title:Anesthesia post op endo Author:Shawn Huddleston MD Date:02/16/22 Plan Transfer/ Discharge: Patient can be discharged from PACU when criteria met. Condition good. Extracted from: Title:Anesthesia Pre-Op endo Author:Mine Huddleston MD Date:02/16/22 Plan [place] [employer]esthesi[employer] (ASA) physical status classification: [...] Diff 12/31/21 * Comprehensive Metabolic Panel 12/31/21 [facility]08-31-2022 Hospital Discharge instructions Patient Education 12/31/2021 [...] drinks. ?Tomatoes and foods made with tomatoes. ?[place] or spicy foods. ?Chocolate and peppermint. Do not drink alcohol. General instructions Take otuf-gok-qbhxsaq and prescription medicines only as told by [...] 07/09/2004 Document Revised: 08/15/2018 Document Reviewed: 08/15/2018 [employer] Patient Education 2020 [employer]. Follow Up Care 11/24/2021 14:47:03 With:Lani Wasserman CNP Address: When:1 to 2 weeks [facility] 08-13-2022 Evaluation note* Encounter Date [...] understanding and is agreeable with treatment plan [employer] Other 12-01-2021 History general Narrative - Reported* Type Description Date Medical History Macular degeneration bilateral e yes Medical History Continuous oxygen 2L/NC Medical History CHF- Does not follow with Cardio logy, managed by PCP Dr. Lora Medical History COPD Medical History Hx of COVID 04/2021 [facility] Other 12-01-2021 History general Narrative - Reported* Type Description Date Medical History Macular degeneration bilateral e yes Medical History Continuous oxygen 2L/NC Medical History CHF- Does not follow with Cardiology, managed by PCP Dr. Lora Medical History COPD Medical History Hx of JayporeID 04/2021 Medical History OSTEOPORESIS Surgical History GALL BLADDER Surgical History HERNIA REPAIR Surgical History BOWEL REDUCTION Surgical History HYSTERECTOMY 1994 Hospitalization History SEE ABOVE [facility] Other Consult note Author Rey Arriaga [facility] November 19, 2022 2:59pm Note Date/Time November 19, 2022 2:59 pm [facility] [address] [place] [address] Cardiology Consult Note Signed Patient: Martin Hagen MR#: [id number] : 1950 Acct:[id number] Age/Sex: 71 / F Adm Date: 3 Loc: Room: [address] [place] [address] Type: ADM IN Attending Dr: Gina Poole [...] 90 mcg/actuation aerosol inhaler (Ventolin HFA) inhalation 07/19/23 [History] alprazolam 1 mg tablet 1 mg [...] Lymph # (Auto) 1.5 1.6 (1.00-4.8) x10E3/uL Spencer # (Auto) 0.4 0.4 (0.0-0.8) x10E3/uL Eos [...] <Electronically signed by MD Rey Arriaga> 11/19/22 [facility]9 [facility] Work Phone: Discharge summary Author Gina Poole [facility] November 21, 2022 3:38pm Note Date/Time November 21, 2022 3:39 pm [facility] [address] [place] [address] Discharge Summary Signed Patient: Martin Hagen MR#: [id number] : 1950 Acct:[id number] Age/Sex: 71 / F Adm Date: 3 Loc: 4 Room: [address] [place] [address]: Gina Poole DO Copies to: [...] Brain atretic peptide level was elevated at 2080. The patient was admitted for IV diuresis [...] % (Auto) 70.8, Lymph % (Auto) 18.9, Spencer % (Auto) 7.3, Eos % (Auto) 2.7, Baso % (Auto) 0.3, Nucleat RBC Rel Count 0.1, Neut # (Auto) 4.1, Lymph # (Auto) 1.1, Spencer # (Auto) 0.4, Eos # (Auto) 0.2, [...] signs - Medication management and education - [facility] on 11/26 - result to Primary Care [...] Patient Ordered By: Gina Poole Follow Up: Annika Montanez APRN [Nurse Practitioner] - 12/28/22 2:00 pm (Follow-up withCardiology. ) Shawn Barber II, MD [Primary Care Provider] - 11/24/22 11:00 am (You have been scheduled for a follow up appointment with Nurse Practioner for the following date and time, please call to reschedule if needed.) Documented By: Gina Poole DO 11/21/22 15 33 Signed By: <Electronically signed by Gina Poole DO> 11/21/22 9873 [facility] Work Phone: Evaluation + Plan note Future Appointments Appointment Date:02/06/2022 01:00:00 PM Scheduled Provider: Location:[facility] Appointment Type:Surgery PAT COVID Testing Appointment Date:02/16/2022 10:30:00 AM Scheduled Provider: Location:[facility] Appointment Type:Surgery FT Appointment Date:02/16/2022 12:30:00 PM Scheduled Provider: Location:[facility] Appointment Type:Surgery FT Future Scheduled Tests Laboratory* Fecal WBC Lactoferrin 12/31/21 * Giardia lamblia, Direct Detection EIA 12/31/21 * O & P Exam, Routine 12/31/21 * Clostridium difficile by PCR 12/31/21 * Enteric Panel by PCR 12/31/21 * CBC w/ Auto Diff 12/31/21 * Comprehensive Metabolic Panel 12/31/21 Radiology* CT Abdomen/Pelvis w/ Contrast 12/31/21 [facility] Evaluation + Plan note Future Appointments Appointment Date:02/16/2022 10:30:00 AM Scheduled Provider: Location:[facility] Appointment Type:Surgery FT Appointment Date:02/16/2022 12:30:00 PM Scheduled Provider: Location:[facility] Appointment Type:Surgery FT Future Scheduled Tests Laboratory* Fecal WBC Lactoferrin 12/31/21 * Giardia lamblia, Direct Detection EIA 12/31/21 * O & P Exam, Routine 12/31/21 * Clostridium difficile by PCR 12/31/21 * Enteric Panel by PCR 12/31/21 * CBC w/ Auto Diff 12/31/21 * Comprehensive Metabolic Panel 12/31/21 [facility] Future App[facility]ments Appointment Date:06/10/2022 09:30:00 AM Scheduled Provider:Jacqui Michael MD Location:[facility] Appointment Type:URO Office Visit Future Scheduled Tests Laboratory* Fecal WBC Lactoferrin 12/31/21 * Giardia lamblia, Direct Detection EIA 12/31/21 * O & P Exam, Routine 12/31/21 * Clostridium difficile by PCR 12/31/21 * Enteric Panel by PCR 12/31/21 * CBC w/ Auto Diff 12/31/21 * Comprehensive Metabolic Panel 12/31/21 [facility] Future Appointments Appointment Date:06/24/2022 08:30:00 AM Scheduled Provider: Location:[facility] Appointment Type:URO Nurse Visit Appointment Date:07/29/2022 09:00:00 AM Scheduled Provider:Jacqui Michael MD Location:[facility] Appointment Type:URO Office Visit Diagnostic Tests Pending [...] Comprehensive Metabolic Panel 12/31/21 [facility] evaluation + Plan note Future Appointments Appointment Date:06/24/2022 08:30:00 AM Scheduled Provider: Location:[facility] Appointment Type:URO Nurse Visit Appointment Date:07/29/2022 09:00:00 AM Scheduled Provider:Jacqui Michael MD Location:[facility] Appointment Type:URO Office Visit Diagnostic Tests Pending * Urine Culture 06/10/22 Future Scheduled Tests Laboratory* Fecal WBC Lactoferrin 12/31/21 * Giardia lamblia, Direct Detection EIA 12/31/21 * O & P Exam, Routine 12/31/21 * Clostridium difficile by PCR 12/31/21 * Enteric Panel by PCR 12/31/21 * CBC w/ Auto Diff 12/31/21 * Comprehensive Metabolic Panel 12/31/21 [facility] Future Appointments Appointment Date:07/29/2022 09:00:00 AM Scheduled Provider:Jacqui Michael MD Location:[facility] Appointment Type:URO Office Visit Future Scheduled Tests Laboratory* Fecal WBC Lactoferrin 12/31/21 * Giardia lamblia, Direct Detection EIA 12/31/21 * O & P Exam, Routine 12/31/21 * Clostridium difficile by PCR 12/31/21 * Enteric Panel by PCR 12/31/21 * CBC w/ Auto Diff 12/31/21 * Comprehensive Metabolic Panel 12/31/21 [facility] evaluation + Plan note Future Appointments Appointment Date:02/03/2023 09:00:00 AM Scheduled Provider:Jacqui Michael MD Location:[facility] Appointment Type:URO Office Visit Future Scheduled Tests Laboratory* Fecal WBC Lactoferrin 12/31/21 * Giardia lamblia, Direct Detection EIA 12/31/21 * O & P Exam, Routine 12/31/21 * Clostridium difficile by PCR 12/31/21 * Enteric Panel by PCR 12/31/21 * CBC w/ Auto Diff 12/31/21 * Comprehensive Metabolic Panel 12/31/21 [facility] evaluation + Plan note Future Appointments Appointment Date:02/08/2023 09:45:00 AM Scheduled Provider: Location:[facility] Appointment Type:Urology CALL PAT FT Appointment Date:02/22/2023 10:45:00 AM Scheduled Provider: Location:[facility] Appointment Type:Urology FT [facility] evaluation + Plan note Future Appointments Appointment Date:04/28/2023 09:45:00 AM Scheduled Provider:Jacqui Michael MD Location:[facility] Appointment Type:URO [facility] Visit [facility] Future Appointments Appointment Date:05/14/2023 01:20:00 PM Scheduled Provider:Lani Wasserman CNP Location:[facility] Appointment Type:BADH Follow Up [facility] evaluation note* Diagnosis Onset Date Resolution Status CHF (congestive heart failure) acute CHF exacerbation [facility] Work Phone: evaluation note* Diagnosis Onset Date Resolution Status Acute diastolic CHF (congest joan heart failure), NYHA class 3 acute Aortic stenosis acute CHF (congestive heart failure) acute CHF exacerbation acute Pulmonary hypertension [facility] Work Phone: evaluation note* Diagnosis Paroxysmal atrial fibrillation ([facility]/HCC)- Primary Atrial fibrillation Anticoagulated Encounter for long-term (current) use of anticoagulants Nonrheumatic aortic valve stenosis Abnormal echocardiogram Nonspecific (abnormal) findings on radiological and other examination of other intrathoracic organs Pulmonary hypertension (CMS/HCC) Other chronic pulmonary heart diseases Stage 3a chronic kidney disease ([facility]/HCC) Current smoker Diabetes mellitus type II, non insulin dependent ([facility]) Type II or unspecified type diabetes mellitus without mention of complication, not stated as uncontrolled BMI 31.0-31.9,adult Mixed hyperlipidemia Essential hypertension Unspecified essential hypertension documented in this encounter [facility] Work Phone: Evaluation note* Diagnosis Nonrheumatic aortic valve stenosis Pulmonary hypertension (CMS/HCC) Other chronic pulmonary heart diseases documented in this encounter [facility] Work Phone: Evaluation note* Diagnosis Nonrheumatic aortic valve stenosis Pulmonary hypertension (CMS/HCC) Other chronic pulmonary heart diseases documented in this encounter [facility] Work Phone: History and physical note Author Gina Poole [facility] November 18, 2022 10:13pm Note Date/Time November 18, 2022 10:1 1pm [facility] [address] [place] [address] Hospitalist H&P Signed Patient: Martin Hagen MR#: [id number] : 1950 Acct:[id number] Age/Sex: 71 / F Adm Date: 3 Loc: Room: [address] [place] [address] Type: ADM IN Attending Dr: Gina Poole [...] History (Updated 11/18/22 @ 21:50 by Hamida Chaaprro RN) Afib Anxiety Arthritis Bronchial asthma Bronchial [...] % (Auto) 22.5 % (.) 11/18/22 17:51 Spencer % (Auto) 5.7 % (.) 11/18/22 17:51 Eos % (Auto) 1.7 % (.) 11/18/22 17:51 Baso % (Auto) 0.7 % (.) 11/18/22 17:51 Nucleat RBC Rel Count 0.0 /100 WBC (0-0.5) 11/18/22 17:51 Neut # (Auto) 4.7 x10E3/uL (1.8-7.7) 11/18/22 17:51 Lymph # (Auto) 1.5 x10E3/uL (1.00-4.8) 11/18/22 17:51 Spencer # (Auto) 0.4 x10E3/uL (0.0-0.8) 11/18/22 17:51 [...] days): 3 Documented By: Gina Poole DO 11/18/22 22 02 Signed By: <Electronically signed by Gina Poole DO> 11/18/22 1070 [facility] Work Phone: History of Present illness Narrative* [...] medication regimen. She denies medication side effects. [facility] 250 DO Work Phone: Hospital course Narrative No data available for this section [facility] Hospital Discharge instructions No data available for this section [facility] instructionsAmbulatory Orders* Initiate Home Health Time Frame: 1 Day, Location: Determined By Patient Additional Instructions Home Health to manage care: - Full code - PT/OT eval and treat - Routine vital signs - Medication management and education - [facility] on 11/26 - result to Primary Care Provider -[facility] Work Phone: Progress note No data available for this section [facility] Protfaap note Author Gina Poole [facility] November 19, 2022 11:54am Note Date/Time November 19, 2022 11:5 4am [facility] [address] [place] [address] Hospitalist Progress Note Signed Patient: Martin Hagen MR#: [id number] : 1950 Acct:[id number] Age/Sex: 71 / F Adm Date: 3 Loc: 4 Room: [address] [place] [address] Type: ADM IN Attending Dr: Gina Poole [...] Units/3 Ml Insuln.Pen SUBCUT 11/19/23 11:59 TID.WM.[facility] Protocol Magnesium Oxide 400 mg 11/19/22 [...] <Electronically signed by Gina Poole DO> 11/19/22 1157 [facility] Work Phone: Progress note Author Rey Arriaga [facility] November 20, 2022 10:30am Note Date/Time November 20, 2022 10:3 0am [facility] [address] [place] [address] Cardiology Progress Note Signed Patient: Martin Hagen MR#: [id number] : 1950 Acct:[id number] Age/Sex: 71 / F Adm Date: 3 Loc: Room: [address] [place] [address] Type: ADM IN Attending Dr: Gina Poole [...] MPV Neut % (Auto) Lymph % (Auto) Spencer % (Auto) Eos % (Auto) Baso % (Auto) Nucleat RBC Rel Count Neut # (Auto) Lymph # (Auto) Spencer # (Auto) Eos # (Auto) Baso # [...] % (Auto) 68.4 Lymph % (Auto) 22.4 Spencer % (Auto) 6.7 Eos % (Auto) 2.1 Baso % (Auto) 0.4 Nucleat RBC Rel Count 0.1 Neut # (Auto) 3.7 Lymph # (Auto) 1.2 Spencer # (Auto) 0.4 Eos # (Auto) 0.1 [...] MPV Neut % (Auto) Lymph % (Auto) Spencer % (Auto) Eos % (Auto) Baso % (Auto) Nucleat RBC Rel Count Neut # (Auto) Lymph # (Auto) Spencer # (Auto) Eos # (Auto) Baso # [...] signed by MD Rey Arriaga> 11/20/22 1030 [facility] Work Phone: Progress note Author Gina Poole [facility] November 20, 2022 2:12pm Note Date/Time November 20, 2022 2:12 pm [facility] [address] [place], [place] [id number] Hospitalist Progress Note Signed Patient: Martin Hagen MR#: [id number] : 1950 Acct:[id number] Age/Sex: 71 / F Adm Date: 3 Loc: Room: [address] [place] [address] Type: ADM IN Attending Dr: Gina Poole [...] Dose Route Start Last Admin Trade Name Minerva PRN Reason Stop Dose Admin Hydrocodone Bitart/Acetaminophen [...] Insuln.Pen SUBCUT 11/19/23 11:59 Not Given TID.WM.[facility] Protocol Magnesium Oxide 400 mg 11/19/22 [...] Signed By: <Electronically signed by Gina Poole, > 11/20/22 1412 [facility] Work Phone: Progress note Author Colin Carrillo [facility] November 21, 2022 11:31am Note Date/Time November 21, 2022 11:3 1am [facility] [address] [place], [place] [id number] Cardiology Progress Note Signed Patient: Martin Hagen MR#: [id number] : 1950 Acct:[id number] Age/Sex: 71 / F Adm Date: 3 Loc: Room: [address] [place] [address] Type: ADM IN Attending Dr: Gina Poole [...] % (Auto) 70.8 Lymph % (Auto) 18.9 Spencer % (Auto) 7.3 Eos % (Auto) 2.7 Baso % (Auto) 0.3 Nucleat RBC Rel Count 0.1 Neut # (Auto) 4.1 Lymph # (Auto) 1.1 Spencer # (Auto) 0.4 Eos # (Auto) 0.2 Baso # (Auto) 0.0 PHA Creatinine Clear Sodium Potassium Chloride Carbon Dioxide Anion Gap BUN Creatinine Est GFR (CKD-EPI) Glucose POC Glucose 123 135 Calcium 11/21/22 11/21/22 04:47 08:37 Corrected WBC Uncorrected WBC Count RBC Hgb Hct MCV MCH MCHC RDW Plt Count MPV Neut % (Auto) Lymph % (Auto) Spencer % (Auto) Eos % (Auto) Baso % (Auto) Nucleat RBC Rel Count Neut # (Auto) Lymph # (Auto) Spencer # (Auto) Eos # (Auto) Baso # [...] aggressive diuresis Documented By: Colin Carrillo MD, PLACIDO 3 1127 Signed By: <Electronically signed by MD PLACIDO Carrillo> 11/21/22 1131 [facility] Work Phone: Reason for referral (narrative)* Consultation (Routine) - Authorized Specialty Diagnoses / Procedures Referred By Jack lorenzo Referred To Contact Cardiology Diagnoses Paroxysmal atrial fibrillation (CMS/HCC) Procedures Follow Up In Cardiology Annika Kaba APRN-CNP [address] [address], [address] [address] Referral ID Status Reason Start Date Expiration Date V isits Requested Visits Authorized [id number] Authorized 03/30/2023 03/29/2024 1 1 * CV Imaging (Routine) - Pending Review Specialty Diagnoses / Procedures Referred By Jack lorenzo Referred To Contact Cardiology Diagnoses Nonrheumatic aortic valve stenosis Pulmonary hypertension (CMS/HCC) Procedures Transthoracic Echo (TTE) Complete WV ECHO TRANSTHORC R-T 2D W/WO M-MODE REC F-UP/LMTD WV DOP ECHOCARD COLOR FLOW VELOCITY MAPPING WV DOP ECHOCARD PULSE WAVE W/SPECTRAL F-UP/LMTD STD Annika Kaba APRN-VISUAL TRAINING AIDE [address] [facility] [address], [address] [address] Referral ID Status Reason Start Date Expiration Date Visits Requested Visits Authorized [id number] Pending Review Perform Procedure 3 03/29/2024 1 1 [facility] Work Phone: Summary Purpose Family History No [...] hypertension (CMS/HCC) Procedures Transthoracic Echo (TTE) Complete [place] ECHO TRANSTHORC R-T 2D W/WO M-MODE REC F-UP/LMTD WV DOP ECHOCARD COLOR FLOW VELOCITY MAPPING WV DOP ECHOCARD PULSE WAVE W/SPECTRAL F-UP/LMTD STD Annika Kaba, COVER MAKING MACHINE OPERATOR-VISUAL TRAINING AIDE [address] [facility], [address] [place] [address] Referral ID Status Reason Start Date Expiration Date Visits Requested Visits Authorized [id number] Pending Review Perform Procedure 3 03/29/2024 1 1 Additional Source Comments INFORMATION SOURCE (unrecogn ized section and content) DATE CREATED AUTHOR 10/21/2017 [facility] DATE CREATED AUTHOR AUTHOR'S ORGANIZ ATION 10/06/2021 [facility] DATE CREATED AUTHOR AUTHOR'S ORGANIZ ATION 09/13/2022 [facility] DATE CREATED AUTHOR AUTHOR'S ORGANIZ ATION 11/02/[address] [facility] DATE CREATED AUTHOR AUTHOR'S ORGANIZ ATION 12/24/2022 [facility] DATE CREATED AUTHOR AUTHOR'S ORGANIZ ATION 12/29/2022 [facility] DATE CREATED AUTHOR AUTHOR'S ORGANIZ ATION 12/30/2022 [facility] DATE CREATED AUTHOR AUTHOR'S ORGANIZ ATION 04/07/2023 [facility] d[facility] Specialists EPIC DATE CREATED AUTHOR AUTHOR'S ORGANIZ ATION 05/02/2023 [facility] REASON FOR VISIT (unrecogniz ed section and content) Reason Comments Follow-up 4m Specialty Diagnoses / Procedures Referred By Contac t Referred To Contact Cardiology Diagnoses Nonrheumatic aortic valve stenosis Pulmonary hypertension (CMS/HCC) Procedures Transthoracic Echo (TTE) Complete WV ECHO TRANSTHORC R-T 2D W/WO M-MODE REC F-UP/LMTD WV DOP ECHOCARD COLOR FLOW VELOCITY MAPPING WV DOP ECHOCARD PULSE WAVE W/SPECTRAL F-UP/LMTD STD Annika Kaba, COVER MAKING MACHINE OPERATOR-VISUAL TRAINING AIDE [address] [address], [address] [address] Referral ID Status Reason Start Date Expiration Date Visits Requested Visits Authorized [id number] Pending Review Perform Procedure 3 03/29/2024 1 [...] Active Farhat Saleem MD Other Provider Active Annika Kaba APRN Other Provider Active Kellie Okeefe MD Other Provider Active Jack Cooley MD Other Provider Active Daniella Estrada MD Other Provider Active Sonia Urena , [facility]- Other Provider Active Tatiana Shafer MD Other Provider Active Team Status: Active Member Role Status Dates Shawn Barber , MARTHA XIE Primary Care Provider Active Venkatesh Trammell , DO Emergency Provider Active Gina Poole , DO Admit Provider, Attending Provider Active Senior C Developer Relationship Specialty Start Date End Date Shawn Barber MD [address] [place] [address] PCP - General 12/28/22 Shawn Barber MD [address] [place] [address] 12/28/22 Senior C Developer Relationship Specialty Start Date End Date Shawn Barber MD [address] [place] [address] PCP - General 12/28/22 Shawn Barber MD [address] [place] [address] 12/28/22 Senior C Developer Relationship Specialty Start Date End Date Shawn Barber MD [address] [place] [address] PCP - General 12/28/22 Shawn Barber MD [address] [place] [address] 12/28/22 Goals (unrecognized section and content) Goals [...] BE BASED ON THE PRIMARY CLINICAL RECORDS. [facility] [employer] [facility]. provides no warranty or guarantee of the accuracy or completeness of information in this document.
[2023-05-07 16:35] LABS: SARS-CoV-2 Ag NEGATIVE (NEGATIVE)
[2023-05-08 16:05] LABS: SARS-CoV-2 NAA NOT DETECTED (NOT DETECTE)
== END 2023-05-07 14:41 | disposition home or self-care (01) ==
LOC: LAB 14:40
PROVIDERS: PCP Internal Medicine; Visit Provider Internal Medicine
DX: R05.8 Other specified cough (principal); Z20.822 Contact with and (suspected) exposure to COVID-19
CPT/HCPCS: 87635; 87811

== ENCOUNTER 2023-05-11 16:36 | Inpatient (IN) | payer MEDICARE, OTHER, MEDICAID, SELFPAY ==
[2023-05-11] VITALS (14 sets, daily range): BP systolic 91–118; BP diastolic 57–72; PULSE 80–97; RESP 12–32; TEMP 36.6–36.8; O2SAT 89–100; BMI 31.0; BMI 28.2
--- NOTE | 2023-05-11 16:45 | XR_ITS ---
[address] [address] Patient Name: MARTIN HAGEN MRN: [id number] date: 1950 Sex: F Assigned Patient Location: ER Current Patient Location: ER Accession/Order Number: [id number] Exam Date: 05/11/2023 17:05 Report Date: 05/11/2023 17:29 At the request of: RASHAD BOUCHER Procedure: XR femur RT 2V EXAM: XR hip RT 2V w/ pelvis, XR femur RT 2V TECHNIQUE: AP pelvis. AP and lateral views right hip. AP and lateral views of the right femur HISTORY: Fall COMPARISON: None. FINDINGS: Comminuted intertrochanteric fracture of the proximal right femur with varus angulation. No additional fracture site. Soft tissue swelling about the hip. Mild degenerative spurring of the hip joint. XR/XR femur RT 2V IMPRESSION: Comminuted intertrochanteric fracture of the proximal right femur. Electronically authenticated by: CYNDIE TAI Date: 05/11/2023 17:29
--- NOTE | 2023-05-11 16:45 | CT_ITS ---
[address] [address] Patient Name: MARTIN HAGEN MRN: [id number] date: 1950 Sex: F Assigned Patient Location: ER Current Patient Location: ER Accession/Order Number: [id number] Exam Date: 05/11/2023 16:58 Report Date: 05/11/2023 17:54 At the request of: RASHAD BOUCHER Procedure: CT cervical spine wo con EXAM: CT cervical spine wo con HISTORY: Patient fell. TECHNIQUE: Axial CT scans through the cervical spine were obtained without contrast administration. Sagittal and coronal reconstruction images were obtained. A trauma Dose reduction techniques were achieved by using: automated exposure control and/or adjustment of mA and /or kV according to patient size and/or use of iterative reconstruction technique. COMPARISON: CTA of the neck on 03/18/2022. FINDINGS: An acute intra-articular displaced fracture of the visualized left mandibular condyle. The cervical spine shows no acute fracture or posttraumatic malalignment is shown. Probably subacute mild compression fractures of the superior endplates of T1, T2 on T3 with resultant subchondral sclerosis without prevertebral edema. Decreased disc height and mild posterior discovertebral complexes without central spinal stenosis at C3-C4 and C4-C5. A small posterior central disc protrusion each at C2-C3 and C3-C4. Intracanalicular compartment appears unremarkable. The prevertebral soft tissue space appears normal. 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 Visualized neck shows no adenopathy. Visualized lung apices show mild centrilobular emphysema. CT/CT cervical spine wo con IMPRESSION: An acute intra-articular displaced fracture of the visualized left mandibular condyle. The cervical spine shows no acute fracture or posttraumatic malalignment. Probably subacute mild compression fractures of the superior endplates of T1, T2 on T3 with resultant subchondral sclerosis without prevertebral edema. Mild centrilobular emphysema. Electronically authenticated by: MERLENE RONDON Date: 05/11/2023 17:54
--- NOTE | 2023-05-11 16:45 | XR_ITS ---
The [address] [address] Patient Name: MARTIN AHGEN MRN: [id number] date: 1950 Sex: F Assigned Patient Location: ER Current Patient Location: ER Accession/Order Number: [id number] Exam Date: 05/11/2023 17:05 Report Date: 05/11/2023 17:35 At the request of: RASHAD BOUCHER Procedure: XR chest 1V EXAM: XR chest 1V at 1657 hours HISTORY: Fall COMPARISON: 03/24/2023 TECHNIQUE: AP upright portable chest x-ray FINDINGS: The heart is at the upper limits of normal in size. Slight prominence of interstitial markings are seen throughout the lungs which appear chronic in nature. A calcified granuloma is seen in the left upper lung. No acute infiltrate, effusion or pneumothorax is identified. A healing fracture of the proximal left humerus is again noted. The osseous structures are otherwise grossly intact. XR/XR chest 1V IMPRESSION: No acute infiltrate or evidence of cardiac decompensation. Mild chronic changes are present. The overall appearance is unchanged. Electronically authenticated by: SIMON KUMAR Date: 05/11/2023 17:35
--- NOTE | 2023-05-11 16:45 | ECG_ITS ---
The [facility] Test Date: 2023-05-11 Pat Name: MARTIN HAGEN Department: Room: - Gender: Female Barkeeper: : 1950 Requested By: BARRY RENDON Order Number: [id number] Reading MD: BRISA POOL Measurements Intervals Diboll Rate: 86 P: -39 NE: 130 QRS: 40 QRSD: 82 T: 51 QT: 428 QTc: 471 Interpretive Statements 1220 Rapid atrial rhythm 1470 with occasional supraventricular premature complexes 8304 Long QTc interval 9150 abnormal ECG Compared to ECG 03/21/2023 20:52:55 Junctional rhythm no longer present Electronically Signed On 05-11-2023 22:25:44 EST by BRISA POOL
--- NOTE | 2023-05-11 16:45 | XR_ITS ---
[address] [address] Patient Name: MARTIN HAGEN MRN: [id number] date: 1950 Sex: F Assigned Patient Location: ER Current Patient Location: ER Accession/Order Number: [id number] Exam Date: 05/11/2023 17:05 Report Date: 05/11/2023 17:29 At the request of: RASHAD BOUCHER Procedure: XR hip RT 2V w/ pelvis EXAM: XR hip RT 2V w/ pelvis, XR femur RT 2V TECHNIQUE: AP pelvis. AP and lateral views right hip. AP and lateral views of the right femur HISTORY: Fall COMPARISON: None. FINDINGS: Comminuted intertrochanteric fracture of the proximal right femur with varus angulation. No additional fracture site. Soft tissue swelling about the hip. Mild degenerative spurring of the hip joint. XR/XR hip RT 2V w/ pelvis IMPRESSION: Comminuted intertrochanteric fracture of the proximal right femur. Electronically authenticated by: CYNDIE TAI Date: 05/11/2023 17:29
--- NOTE | 2023-05-11 16:46 | CT_ITS ---
The [address] [address] Patient Name: MARTIN HAGNE MRN: [id number] date: 1950 Sex: F Assigned Patient Location: ER Current Patient Location: ER Accession/Order Number: [id number] Exam Date: 05/11/2023 16:58 Report Date: 05/11/2023 17:44 At the request of: RASHAD BOUCHER Procedure: CT head/brain wo con EXAM: CT head/brain wo con HISTORY: Fall COMPARISON: None. TECHNIQUE: Axial CT scans through the head and cervical spine were obtained without IV contrast administration. Dose reduction techniques were achieved by using: automated exposure control and/or adjustment of mA and /or kV according to patient size and/or use of iterative reconstruction technique. CT BRAIN FINDINGS: There is no evidence of acute intracranial hemorrhage or abnormal extra-axial fluid collection. No mass effect or midline shift is seen. There is no evidence of large acute territorial infarction. There is no hydrocephalus. 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 Mild enlarged cortical sulci, consistent with age appropriate cerebral atrophy. Patchy areas of low-attenuation are present in supratentorial white matter, likely represents chronic microvascular ischemia. To the limit of CT, the posterior fossa appears unremarkable. No definite acute fracture is identified. Soft tissues are unremarkable. The visualized orbits show no abnormality The visualized paranasal sinuses show no air-fluid level. Mastoid air cells are clear. CT/CT head/brain wo con IMPRESSION: No CT evidence of acute intracranial abnormality. Nonemergent findings, as described. Electronically authenticated by: TOBY ELLISU Date: 05/11/2023 17:44
--- NOTE | 2023-05-11 16:47 | PC.NURSE ---
right hip injury
[2023-05-11 16:53] LABS: Basophils Percent Auto 0.2 % (0.2-2.0); Eosinophils Absolute Auto 0.1 10^3/uL (0.0-0.7); Eosinophils Percent Auto 0.6 % (0.9-7.0); Hematocrit 25.8 % (36.0-48.0); Hemoglobin 9.1 g/dL (12.0-16.0); Immature Granulocytes Abs Auto 0.05 10^3/uL (0.00-0.03); Immature Granulocytes Pct Auto 0.6 % (0.0-0.5); Lymphocytes Absolute Auto 2.9 10^3/uL (1.2-3.8); Lymphocytes Percent Auto 32.4 % (20.5-60.0); Mean Corpuscular HGB Conc 35.3 g/dL (29.9-35.2); Mean Corpuscular Hemoglobin 30.7 pg (26.7-34.0); Mean Corpuscular Volume 87.2 fL (81.0-99.0); Mean Platelet Volume 9.2 fL (9.5-13.5); Monocytes Absolute Auto 0.5 10^3/uL (0.3-0.8); Monocytes Percent Auto 5.1 % (1.7-12.0); Neutrophils Absolute Auto 5.5 10^3/uL (1.4-6.5); Neutrophils Percent Auto 61.1 % (43.0-75.0); Platelet Count 219 10^3/uL (150-450); Red Blood Count 2.96 10^6/uL (4.20-5.40)
--- NOTE | 2023-05-11 16:54 | ED.GENADUL1 ---
HPI - General Adult General Chief complaint: Extremity Injury, Lower Stated complaint: FALL Time Seen by Provider: 05/11/23 16:44 Source: patient Mode of arrival: ambulance History of Present Illness HPI narrative: Patient is a 72-year-old female who presents to the emergency department by ambulance for the evaluation of pain in the right hip. She states she has had some ongoing pain in the left hip from previous falls, she has had 3 falls this week. She states the left hip is mildly sore but she is having most of her pain in the right hip from the fall today, she states her leg gave out on her and she fell onto her right side onto her hip. She complains of pain in the posterior and lateral hip. She denies head injury. She has a small skin tear to the right forearm from a fall earlier this week. She states she is not dizzy, she had no syncope, chest pain, shortness of breath. She is supposed to be on Eliquis but ran out of this 1 week ago. She has a history of COPD on oxygen by nasal cannula at 3 L chronically. She has a history of seizure disorder and chronic kidney disease. Related Data Home Medications Medication Instructions Recorded Confirmed albuterol sulfate 90 mcg/actuation 2 puff inhalation Q4H PRN 10/08/22 05/11/23 aerosol inhaler (Ventolin HFA) shortness of breath or wheezing alprazolam 1 mg tablet 1 mg PO TID PRN anxiety 10/08/22 05/11/23 apixaban 5 mg tablet (Eliquis) 5 mg PO BID 10/08/22 05/11/23 brexpiprazole 1 mg tablet (Rexulti) 1 mg PO QDAY 10/08/22 05/11/23 cyclobenzaprine 10 mg tablet 10 mg PO .qhs PRN muscle spasm 10/08/22 05/11/23 dulaglutide 0.75 mg/0.5 mL 0.75 mg subcut QWEEK high blood 10/08/22 05/11/23 subcutaneous pen injector sugar (Trulicity) fluoxetine 40 mg capsule 40 mg PO DAILY 10/08/22 05/11/23 magnesium oxide 400 mg (241.3 mg 400 mg PO BID 10/08/22 05/11/23 magnesium) tablet metoprolol tartrate 50 mg tablet 50 mg PO BID 10/08/22 05/11/23 omeprazole 40 mg capsule,delayed 40 mg PO BID 10/08/22 05/11/23 release tizanidine 4 mg tablet 4 mg PO TID PRN muscle spasticity 10/08/22 05/11/23 atorvastatin 20 mg tablet (Lipitor) 20 mg PO DAILY 03/09/23 05/11/23 bumetanide 2 mg tablet 2 mg PO DAILY 03/09/23 05/11/23 dapagliflozin propanediol 10 mg 10 mg PO DAILY 03/09/23 05/11/23 tablet (Farxiga) estradiol 0.01% (0.1 mg/gram) 0.25 appful vaginal .2x a week 03/09/23 05/11/23 vaginal cream (Estrace) fluticasone 250 mcg-salmeterol 50 1 inh inhalation BID 03/09/23 05/11/23 mcg/dose blistr powdr for inhalation (Advair Diskus) lisinopril 20 mg tablet 20 mg PO DAILY 03/09/23 05/11/23 metolazone 2.5 mg tablet 2.5 mg PO DAILY 03/09/23 05/11/23 promethazine 25 mg tablet 25 mg PO Q6H PRN nausea and 03/09/23 05/11/23 vomiting [id number] 3.5 3 drp otic (ear) Q4H 03/21/23 05/11/23 mg-10,000 unit/mL-1 % ear drops,susp levetiracetam 500 mg tablet 250 mg PO BID 05/11/23 05/11/23 (Keppra) levetiracetam 500 mg tablet 250 mg PO BID 05/11/23 05/11/23 (Keppra) Previous Rx's Medication Instructions Recorded calcium carbonate 200 mg calcium 500 mg (2.5 x 200 mg calcium (500 03/24/23 (500 mg) chewable tablet mg)) PO TID #90 tabs Allergies Allergy/AdvReac Type Severity Reaction Status Date / Time No Known Drug Allergies Allergy Verified 03/21/23 19:07 Review of Systems ROS Constitutional Denies: fever or chills Ears, nose, mouth, and throat Denies: throat pain or nasal congestion Cardiovascular Denies: chest pain Respiratory Denies: shortness of breath or cough Gastrointestinal Denies: nausea or vomiting Genitourinary Denies: painful urination Musculoskeletal Reports: extremity pain, joint pain and limited range of motion; Denies: back pain or neck pain Integumentary/Breast Denies: rash Neurological Denies: headache [facility] Medical History (Updated 05/11/23 @ 18:32 by KIA Mo) Acute kidney injury superimposed on CKD ?N17.9 - Acute kidney failure, unspecified (ICD-10) ?N18.9 - Chronic kidney disease, unspecified (ICD-10) UTI (urinary tract infection) ?N39.0 - Urinary tract infection, site not specified (ICD-10) Hypokalemia ?E87.6 - Hypokalemia (ICD-10) Hypocalcemia ?E83.51 - Hypocalcemia (ICD-10) Hypomagnesemia ?E83.42 - Hypomagnesemia (ICD-10) Generalized seizure ?R56.9 - Unspecified convulsions (ICD-10) Acute otitis externa of left ear ?H60.502 - Unspecified acute noninfective otitis externa, left ear (ICD-10) UTI (urinary tract infection) due to Enterococcus ?N39.0 - Urinary tract infection, site not specified (ICD-10) ?B95.2 - Enterococcus as the cause of diseases classified elsewhere (ICD-10) Adrenal adenoma ?D35.00 - Benign neoplasm of unspecified adrenal gland (ICD-10) (HFpEF) heart failure with preserved ejection fraction ?I50.30 - Unspecified diastolic (congestive) heart failure (ICD-10) Chronic respiratory failure with hypoxia ?J96.11 - Chronic respiratory failure with hypoxia (ICD-10) Anemia due to chronic kidney disease ?N18.9 - Chronic kidney disease, unspecified (ICD-10) ?D63.1 - Anemia in chronic kidney disease (ICD-10) Heart murmur ?R01.1 - Cardiac murmur, unspecified (ICD-10) UTI due to Klebsiella species ?N39.0 - Urinary tract infection, site not specified (ICD-10) ?B96.89 - Other specified bacterial agents as the cause of diseases classified elsewhere (ICD-10) C. difficile diarrhea ?A04.72 - Enterocolitis due to Clostridium difficile, not specified as recurrent (ICD-10) Obesity ?E66.9 - Obesity, unspecified (ICD-10) Depression ?F32.A - Depression, unspecified (ICD-10) Hypertension ?I10 - Essential (primary) hypertension (ICD-10) Atrial fibrillation ?I48.91 - Unspecified atrial fibrillation (ICD-10) CKD (chronic kidney disease) stage 3, GFR 30-59 ml/min ?N18.30 - Chronic kidney disease, stage 3 unspecified (ICD-10) Reducible umbilical hernia ?K42.9 - Umbilical hernia without obstruction or gangrene (ICD-10) Hernia of anterior abdominal wall ?K43.9 - Ventral hernia without obstruction or gangrene (ICD-10) Diabetes ?E11.9 - Type 2 diabetes mellitus without complications (ICD-10) Anemia ?D64.9 - Anemia, unspecified (ICD-10) Hypocalcemia ?E83.51 - Hypocalcemia (ICD-10) CHF (congestive heart failure) ?I50.9 - Heart failure, unspecified (ICD-10) Edema ?R60.9 - Edema, unspecified (ICD-10) CHF (congestive heart failure) ?I50.9 - Heart failure, unspecified (ICD-10) COPD (chronic obstructive pulmonary disease) ?J44.9 - Chronic obstructive pulmonary disease, unspecified (ICD-10) Surgical History (Updated 10/09/22 @ 00:41 by Jennifer Trejo) History of cholecystectomy ?Z90.49 - Acquired absence of other specified parts of digestive tract (ICD-10) H/O: hysterectomy ?Z90.710 - Acquired absence of both cervix and uterus (ICD-10) Family History (Updated 10/09/22 @ 00:43 by Jennifer Trejo) Family/Other Family history of CHF (congestive heart failure) Family history of COPD (chronic obstructive pulmonary disease) Family history of hypertension Social History Smoking status: Current every day smoker Second hand tobacco smoke exposure: No Non-prescribed substance use: denies use Previous occupational history: retired Known occupational exposures/hazards: Yes Highest level of school completed/degree received: GED or equivalent Are you now , , , , never or living with a partner: In a typical week, how many times do you talk on the telephone with family, friends, or neighbors: 3 or more times per week How often do you get together with friends or relatives: 3 or more times per week How often do you attend buddhist or islam services: 1-3 times per year Do you belong to any clubs or organizations such as buddhist groups unions, fraternal or athletic groups, or school groups: no Total score: 1 Score interpretation: A score of less than or equal to 1 indicates the most socially isolated. Little interest or pleasure in doing things: not at all Feeling down, depressed, or hopeless: not at all Feel stressed/tense/nervous/anxious/difficulty sleeping: not at all Due to disability, difficulty making decisions: No Do you think of yourself as: straight/heterosexual Gender Identity: female Exam Narrative Exam Narrative: Gen.: Awake, alert, in no distress Head: Normocephalic, atraumatic ENT: Moist mucous membranes Respiratory: Oxygen by nasal cannula, harsh cough noted, no wheezing or rhonchi Cardio: Regular rate and rhythm Gastrointestinal: Abdomen is soft, nondistended and nontender to palpation Extremities: Patient resting with right hip flexed, left hip is nontender. Pelvis is stable. No bony tenderness of the bilateral knees or ankles Psych: Normal mood and affect Neuro: No focal neuro deficit Skin: Warm, dry, Small skin tear noted to the right forearm, no active bleeding or deep laceration Constitutional Vital Signs, click to edit/add: Last Vital Signs Temp 97.8 F 05/11/23 16:39 Pulse 91 H 05/11/23 18:20 Resp 12 05/11/23 18:20 BP 107/70 05/11/23 18:00 Pulse Ox 99 05/11/23 18:00 O2 Del Method Nasal Cannula 05/11/23 16:47 O2 Flow Rate 3 05/11/23 16:47 Course Vital Signs Vital signs: Vital Signs Temperature 97.8 F 05/11/23 16:39 Pulse Rate 89 05/11/23 16:39 Respiratory Rate 20 05/11/23 16:39 Blood Pressure 94/72 05/11/23 16:39 Pulse Oximetry 100 05/11/23 16:39 Oxygen Delivery Method Nasal Cannula 05/11/23 16:39 Oxygen Delivery Flow Rate 3 05/11/23 16:39 Temperature 97.8 F 05/11/23 16:39 Pulse Rate 91 H 05/11/23 18:20 Respiratory Rate 12 05/11/23 18:20 Blood Pressure 107/70 05/11/23 18:00 Pulse Oximetry 99 05/11/23 18:00 Oxygen Delivery Method Nasal Cannula 05/11/23 16:47 Oxygen Delivery Flow Rate 3 05/11/23 16:47 Medical Decision Making MDM Narrative Medical decision making narrative: Patient sent for CTs of the head, C-spine, x-rays of the chest, pelvis and right hip and right femur. She was found to have a right intertrochanteric hip fracture and lab studies show rapid atrial rhythm on EKG with potassium 2.6, hemoglobin 9.1 and creatinine 2.3. All of these values are stable and chronic for the patient. She was given IV fluids with potassium in the ER. Additional fentanyl and Zofran given for pain. CT of the cervical spine shows subacute thoracic fractures but also a condylar fracture of the left mandible that appears acute. Additional facial bones imaging was ordered. Patient discussed with Dr. Dodson for orthopedics who is comfortable taking care of the patient if hospitalist is comfortable with management, Dr. Uriarte is agreeable to admission at this facility. Patient was reevaluated by attending physician prior to discharge, she has no complaint of jaw pain and is able to open her mouth with no difficulty. She is admitted to [facility] with telemetry as an inpatient for further management. Medical Records Medical records reviewed: Yes I reviewed the patient's medical records Lab Data Lab results reviewed: Yes I reviewed the patient's lab results Labs: Lab Results 05/11/23 Range/Units 16:48 WBC 9.0 (4.0-11.0) 10^3/uL RBC 2.96 L (4.20-5.40) 10^6/uL Hgb 9.1 L (12.0-16.0) g/dL Hct 25.8 L (36.0-48.0) % MCV 87.2 (81.0-99.0) fL MCH 30.7 (26.7-34.0) pg MCHC 35.3 H (29.9-35.2) g/dL RDW 13.0 (11.0-15.0) % Plt Count 219 (150-450) 10^3/uL MPV 9.2 L (9.5-13.5) fL Neut % (Auto) 61.1 (43.0-75.0) % Lymph % (Auto) 32.4 (20.5-60.0) % Schleicher % (Auto) 5.1 (1.7-12.0) % Eos % (Auto) 0.6 L (0.9-7.0) % Baso % (Auto) 0.2 (0.2-2.0) % Neut # (Auto) 5.5 (1.4-6.5) 10^3/uL Lymph # (Auto) 2.9 (1.2-3.8) 10^3/uL Schleicher # (Auto) 0.5 (0.3-0.8) 10^3/uL Eos # (Auto) 0.1 (0.0-0.7) 10^3/uL Baso # (Auto) 0.0 (0.0-0.1) 10^3/uL Abs Immat Gran (auto) 0.05 H (0.00-0.03) 10^3/uL Imm/Tot Granulo (auto) 0.6 H (0.0-0.5) % PT 11.0 (9.0-11.6) sec INR 1.04 Sodium 125 L (136-145) mmol/L Potassium 2.6 L* (3.5-5.1) mmol/L Chloride 89 L (98-107) mmol/L Carbon Dioxide 24.7 (21.0-32.0) mmol/L Anion Gap 13.9 BUN 68.0 H (7.0-18.0) mg/dL Creatinine 2.53 H (0.55-1.02) mg/dL Est GFR ( Amer) 23 L (>=60) Est GFR (Non-Af Amer) 19 L (>=60) BUN/Creatinine Ratio 26.9 Glucose 115 H (74-106) mg/dL Calcium 5.7 L* (8.5-10.1) mg/dL Total Bilirubin 0.3 (0.2-1.0) mg/dL AST 26 (15-37) U/L ALT 23 (14-59) U/L Alkaline Phosphatase 86 (46-116) U/L Troponin I High Sens 11.5 (4.0-51.3) pg/mL Total Protein 6.1 L (6.4-8.2) g/dL Albumin 2.1 L (3.4-5.0) g/dL Globulin 4.0 g/dL Albumin/Globulin Ratio 0.[address] scan - head: Attestation: I have reviewed the pertinent imaging results. Radiologist's impression: ITS Impressions Cervical Spine CT 05/11/23 16:45 IMPRESSION: An acute intra-articular displaced fracture of the visualized left mandibular condyle. The cervical spine shows no acute fracture or posttraumatic malalignment. Probably subacute mild compression fractures of the superior endplates of T1, T2 on T3 with resultant subchondral sclerosis without prevertebral edema. Mild centrilobular emphysema. Electronically authenticated by: MERLENE RONDON Date: 05/11/2023 17:54 Chest X-Ray 05/11/23 16:45 IMPRESSION: No acute infiltrate or evidence of cardiac decompensation. Mild chronic changes are present. The overall appearance is unchanged. Electronically authenticated by: SIMON KUMAR Date: 05/11/2023 17:35 Femur X-Ray 05/11/23 16:45 IMPRESSION: Comminuted intertrochanteric fracture of the proximal right femur. Electronically authenticated by: CYNDIE TAI Date: 05/11/2023 17:29 Hip/Pelvis X-Ray 05/11/23 16:45 IMPRESSION: Comminuted intertrochanteric fracture of the proximal right femur. Electronically authenticated by: CYNDIE TAI Date: 05/11/2023 17:[address] 05/11/23 16:46 IMPRESSION: No CT evidence of acute intracranial abnormality. Nonemergent findings, as described. Electronically authenticated by: TOBY ELLISU Date: 05/11/2023 17:44 ADDENDUM: 05/11/23 1805 IMPRESSION: No CT evidence of acute intracranial abnormality. Acute intracapsular left mandibular condyle fracture with inferior medial displacement of the fracture fragment. Nonemergent findings, as described. Original Report EXAM: CT head/brain wo con HISTORY: Fall COMPARISON: None. TECHNIQUE: Axial CT scans through the head and cervical spine were obtained without IV contrast administration. Dose reduction techniques were achieved by using: automated exposure control and/or adjustment of mA and /or kV according to patient size and/or use of iterative reconstruction technique. CT BRAIN FINDINGS: There is no evidence of acute intracranial hemorrhage or abnormal extra-axial fluid collection. No mass effect or midline shift is seen. There is no evidence of large acute territorial infarction. There is no hydrocephalus. 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 Mild enlarged cortical sulci, consistent with age appropriate cerebral atrophy. Patchy areas of low-attenuation are present in supratentorial white matter, likely represents chronic microvascular ischemia. To the limit of CT, the posterior fossa appears unremarkable. No definite acute fracture is identified. Soft tissues are unremarkable. The visualized orbits show no abnormality The visualized paranasal sinuses show no air-fluid level. Mastoid air cells are clear. IMPRESSION: No CT evidence of acute intracranial abnormality. Nonemergent findings, as described. Electronically authenticated by: [facility] Date: 05/11/2023 18:02 ECG Data Attestation: I personally reviewed and interpreted this ECG as follows: (Rapid atrial rhythm at a rate of 86, no acute ST elevation, occasional PVCs. EKG reviewed by attending physician.) Discharge Plan Discharge Chief Complaint: Extremity Injury, Lower Patient Disposition: Admitted As Inpatient Time of Disposition Decision: 18:32 Prescriptions / Home Meds: No Action albuterol sulfate [Ventolin HFA] 90 mcg/actuation HFA aerosol inhaler 2 puff INHALATION Q4H PRN (Reason: shortness of breath or wheezing) Eliquis 5 mg tablet 5 mg PO BID alprazolam 1 mg tablet 1 mg PO TID PRN (Reason: anxiety) Rexulti 1 mg tablet 1 mg PO QDAY cyclobenzaprine 10 mg tablet 10 mg PO .qhs PRN (Reason: muscle spasm) Trulicity 0.75 mg/0.5 mL pen injector 0.75 mg SUBCUT QWEEK Patient Comments: Wednesday fluoxetine 40 mg capsule 40 mg PO DAILY magnesium oxide 400 mg (241.3 mg magnesium) tablet 400 mg PO BID metoprolol tartrate 50 mg tablet 50 mg PO BID omeprazole 40 mg capsule,delayed release(DR/EC) 40 mg PO BID tizanidine 4 mg tablet 4 mg PO TID PRN (Reason: muscle spasticity) bumetanide 2 mg tablet 2 mg PO DAILY Rx Instructions: Takes 2 mg in AM and 1 mg at bedtime atorvastatin [Lipitor] 20 mg tablet 20 mg PO DAILY metolazone 2.5 mg tablet 2.5 mg PO DAILY Farxiga 10 mg tablet 10 mg PO DAILY estradiol [Estrace] 0.01 % (0.1 mg/gram) cream 0.25 appful vaginal .2x a week fluticasone propion-salmeterol [Advair Diskus] 250-50 mcg/dose blister with device 1 inh inhalation BID lisinopril 20 mg tablet 20 mg PO DAILY promethazine 25 mg tablet 25 mg PO Q6H PRN (Reason: nausea and vomiting) [id number]-[id number] 3.5-10,000-1 mg/mL-unit/mL-% drops,suspension 3 drp OTIC (EAR) Q4H calcium carbonate 200 mg calcium (500 mg) Tablet,Chewable 500 mg PO TID Qty: 90 0RF levetiracetam [Keppra] 500 mg tablet 250 mg PO BID levetiracetam [Keppra] 500 mg tablet 250 mg PO BID Referrals: BARRY RENDON [Primary Care Provider] - 1 week
--- OUTSIDE RECORDS SUMMARY | 2023-05-11 16:58 | XMS_ITS | CCD ---
Author Name Unknown Address [address] [place] [address] Organization [facility] Care Team Providers Care Wick And Base Assembler Name Role Phone KASANDRA BROWN Unavailable Unavailable KASANDRA BROWN Unavailable Unavailable SELF, REFERRED Unavailable Unavailable SHAWN BARBER Unavailable Unavailable Smiley Davila Unavailable SHAWN BARBER Primary Care Physician Dianne, Ziggy Unavailable JAG, DR MAHAMED Perez Admitting Unavailable JAG, DR MAHAMED Perez Attending Unavailable DR SHAWN BARBER Primary Care Unavailable DR SHAWN BARBER Primary Care Unavailable MIGUEL Molina, DR ESCALERA Admitting Unavailable MIGUEL ., DR ESCALERA Attending Unavailable MIGUEL ., DR ESCALERA Consulting Unavailable LYN PIPER Consulting Unavailable ADILENE ., FLAKITA Consulting Unavailable SIMON NORIEGA Consulting Unavailable NALLELY RANGEL Consulting Unavailable DR SHAWN BARBER Primary Care Unavailable DIANNE, ZIGGY Attending Unavailable DIANNE, ZIGGY Admitting Unavailable DR LALI MEHTA Procedure Practitioner Unavail able MIGUEL Molina, DR ESCALERA Consulting Unavailable MIGUEL Molina, DR ESCALERA Attending Unavailable MIGUEL Molina, DR ESCALERA Admitting Unavailable DR SHAWN BARBER Primary Care Unavailable LYN THOMASON Consulting Unavailable RON TADEO Consulting Unavailable SUNIL, DR REDDY Primary Care Unavailable ADELAIDA ., DR JOSE Berumen Admitting Unavailable ADELAIDA ., DR JOSE Berumen Attending Unavailable TAHMINA, DR CANDACE Ambrose Consulting Unavailable ADELAIDA ., DR JOSE Berumen Consulting Unavailable LUDMILA, DR ANITA Ambrose Consulting Unavailable JOSE ALBERTO CABA Consulting Unavailable INGRID LOJA Consulting Unavailable DR SHAWN BARBER Primary Care Unavailable SALOMÓN, DR ASCENCIO Attending Unavailable SALOMÓN, DR ASCENCIO Admitting Unavailable JOHN RENEE Admitting Unavailable JOHN RENEE Attending Unavailable BARBER, DR REDDY Primary Care Unavailable VÍCTORJOHN Consulting Unavailable DANN, INES Consulting Unavailable BARBER, [...] Unavailable BARBER, DR REDDY Primary Care Unavailable HENRYMADI Attending Unavailable HENRY, MADI Admitting Unavailable DANN, INES Consulting Unavailable BARBER, DR REDDY Primary Care Unavailable DANN, INES Attending Unavailable DANN, INES Admitting Unavailable SON ., DR JOSE Berumen Consulting Unavailable BARBER, DR REDDY Primary Care Unavailable SON ., DR JOSE Berumen Attending Unavailable SNO ., DR JOSE Berumen Admitting Unavailable SON [...] ., DR JOSE Berumen Consulting Unavailable [place], EHAB Attending Unavailable SILVA MAXWELL Attending Unavailable MADI SANCHEZ Attending Unavailable PHILL SIMPSON Attending Unavailable MARTHA Barber Primary Care Provider DO Venkatesh Trammell Emergency Provider [phone] DO Gina Poole Admit Provider [phone] DO Gina Poole Attending Provider [phone] BENITO Antunez Other Provider Unavailable DO Melody Canela Other Provider MD Colin Carrillo Other Provider MD Rey Arriaga Other Provider MD Jeffry Hardy Other Provider MD Farhat Saleem Other Provider JERMAINE Montanez Other Provider MD Kellie Okeefe Other Provider MD Jack Cooley Other Provider MD Daniella Estrada Other Provider Ayanna [facility] Sonia Faustin Other Provider MD Tatiana Shafer [...] Primary Care Provider Shawn Barber MD Unavailable LueJacqui MJesse Attending Unavailable ZOHRA WELCH Attending Unavailab Jacqui Owen Attending Unavailable ZOHRA WELCH Attending Unavailab Jacqui Owen Attending Unavailable LueJacqui MJesse Referring Unavailable Lue Jacqui MJesse Admitting Unavailable Lue Jacqui MJesse Attending Unavailable LueJacqui MJesse Admitting Unavailable Lue Jacqui MJesse Attending Unavailable MarlenaeJacqui MJesse Admitting Unavailable LueJacqui MJesse Attending Unavailable Lani Wasserman Attending Unavailable Jacqui Michael MJesse Referring Unavailable Jacqui Michael MJesse Attending Unavailable SOM MADRIGAL Referring Unavailable SHAWN BARBER Primary Care Unavailable SOM MADRIGAL Attending Unavailable LALI RIVERA Referring Unavailable SHAWN BARBER Primary Care Unavailable Allergies Allergy Classification Reported Allergen(s) Allergy Type Date of Onset Reaction(s) Facility (16 sources) GRAPEFRUIT EXTRACT; Translations: [GRAPEFRUIT] Drug Allergy 3 rash, Unknown (qualifier value) [facility] (2 sources) virgin wool Propensity to adverse reactions Unknown [facility] [employer] Other (2 sources) pinneapple Propensity to adverse reactions rash [facility] [employer] Other (13 sources) Bee/Wasp/Ant venom; Translations: [Bee Stings] Drug allergy Swelling of body region (finding) [facility] (15 sources) Naproxen; Translations: [naproxen] Drug Allergy 5 AOF, Unknown [facility] (14 sources) Pineapple; Translations: [PINEAPPLE] Drug allergy 3 Unknown (qualifier value) [facility] (1 source) Bee Sting Drug allergy Unknown [employer] Other (2 sources) Naproxen Drug Allergy 5 [facility]ository (1 source) Naproxen; Translations: [NAPROXEN SODIUM] Drug Allergy 5 [facility] (1 source) BEE VENOM PROTEIN (HONEY BEE); Translations: [BEE VENOM PROTEIN (HONEY BEE)] Propensity to adverse reactions to drug (disorder) 3 [facility] (1 source) WOOL; Translations: [WOOL] Propensity to adverse reactions to drug (disorder) 3 [facility] (1 source) No Known Medication Allergies; Translations: [No Known Medication Allergies] Propensity to adverse reactions (disorder) [facility] Repository Medications Current Medications Medication Drug [...] Start: 03-11-2021 take 4 tablets by mo [facility] once daily Rexulti 0.25 mg oral [...] day(s), # 14 tab(s), Refills(s) 0, Pharmacy: [facility], 153, cm, 02/12/23 11:42:00 EDT, Height/Length Dosing, 68.3, kg, 02/03/23 9:09:00 EDT, Weight Dosing Start Date: 02/22/23 Stop Date: 03/01/23 Status: Ordered Start: 02-03-2023 End: 02-06-2023 take 1 tablet by mouth twice daily Cipro 500 mg Tab 500 mg = 1 tab(s), Oral, BID, X 3 day(s), # 6 tab(s), Refills(s) 0, Pharmacy: [facility], 153, cm, 02/03/23 9:09:00 [...] 8am., # 1 tab(s), Refills(s) 0, Pharmacy: [facility], 154, cm, 06/10/22 10:26:00 [...] x 1 month, then 2x/week for maintainence, [facility], 153, cm, 02/03/23 9:09:00 [...] 08/16/14 Status: Ordered take 1 capsule by [facility] every twenty-four hours FLUoxetine HCl 20 [...] 05/11/17 Status: Ordered take 1 puff(s) by [facility] twice daily fluticasone propion-salmeteroL (Advair Diskus) 250-50 [...] QIDACHS, # 1 tab(s), Refills(s) 0, Pharmacy: [facility], 154, cm, 01/25/20 14:09:00 [...] Daily, # 30 tab(s), Refills(s) 6, Pharmacy: [facility], 153, cm, 04/28/23 9:47:00 [...] each continuously. 0 Active polyethylene glycol 3350 78746 mg powder for oral solution (4 sources) Osmotic Laxative Start: 08-08-2020 Miralax 3350 17 gram packet 17 gram, Oral, Daily, # 255 gram, Refills(s) 3, Pharmacy: [facility], 154, cm, 08/08/20 12:03:00 EDT, Height/Length Dosing, 88.1, kg, 08/08/20 12:03:00 EDT, Weight Dosing Start Date: 08/08/20 Status: Ordered polyethylene glycol 3350 159177 mg / potassium chloride 1480 mg / sodium bicarbonate 5720 mg / sodium chloride 37759 mg powder for oral solution (2 sources) Osmotic Laxative Start: 12-31-2021 NuLYTELY Crane oral powder for reconstitution See Instructions, 1 EA, Refill(s) 0, Prior to colonoscopy., [facility], 154, cm, 12/31/21 14:58:00 EDT, Height/Length Dosing, 79.4, kg, 12/31/21 14:58:00 EDT, Weight Dosing Start Date: 12/31/21 Status: Ordered polymyxin b 55788 unt/ml / trimethoprim 1 mg/ml ophthalmic solution (1 source) Dihydrofolate Reductase Inhibitor Antibacterial, Polymyxin-class Antibacterial Start: 12-13-2021 take 1 drop(s) into the eye(s) four times daily Polymyxin B-Trimethoprim 49165-4.1 UNIT/ML 1 drop into affected eye Ophthalmic [...] day(s), # 90 cap(s), Refills(s) 0, Pharmacy: [facility], 154, cm, 12/31/21 14:58:00 [...] [Lower abdominal pain, unspecified] Onset: 2 Episodic Acquired foot deformities (1 source) Foot drop, right foot; Translations: [Foot drop, right foot] Onset: 3 Episodic Acute and unspecified renal failure (1 [...] Onset: 3 Episodic Diabetes mellitus with complications (4 sources) Disorder of kidney due to diabetes [...] OR ABSCESS W/O BLEEDING] Onset: 8 Chronic Epilepsy; convulsions (7 sources) Unspecified convulsions; Translations: [Seizure] Onset: 2 Episodic Esophageal disorders (15 sources) Haddad's esophagus; Translations: [...] 11-07-2019 Chronic Other aftercare (2 sources) Other terminal operator (current) drug therapy; Translations: [OTHER PRISON (CURRENT) DRUG THERAPY] Onset: 8 Episodic Other aftercare (1 source) 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; Translations: [PRISON CURRNT USE ANTICOAGULANTS] Onset: 3 Episodic Other aftercare (1 source) 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) use of inhaled steroids; Translations: [MOBILE SOLUTIONS ARCHITECT USE OF INHALED STEROIDS] Onset: 3 Episodic Other aftercare (2 sources) [facility] (current) use of insulin; Translations: [MOBILE SOLUTIONS ARCHITECT CURRENT USE OF INSULIN] Onset: 3 Episodic Other aftercare (5 sources) [...] not elsewhere classified] Onset: 2 Chronic Other nervous system disorders (1 source) Unspecified abnormalities of gait and mobility; Translations: [Unspecified abnormalities of gait and mobility] Onset: 3 Episodic Other nutritional; endocrine; and metabolic disorders (12 [...] 3 UNSP] Onset: 3 Unclassified (1 source) PRISON INJECT NONINSULN ANTIDIAB; Translations: [MOBILE SOLUTIONS ARCHITECT INJECT NONINSULN ANTIDIAB] Onset: 3 Unclassified (1 [...] Translations: [IRON DEFICIENCY ANEMIA UNSPECIFIED] Onset: Episodic Fever of unknown origin (4 sources) Fever, unspecified; Translations: [FEVER UNSPECIFIED] Onset: Episodic Fluid and electrolyte disorders (2 sources) Hyperosmolality and hypernatremia; Translations: [Hypokalemia] Onset: Episodic Intestinal infection (1 source) Enterocolitis due to Clostridium difficile, not specified as recurrent; Translations: [ENTROCOLIT DT C DIF NOT SPEC REC] Onset: Episodic Malaise and fatigue (3 sources) Other fatigue; Translations: [Weakness] Onset: 018 Episodic Mood disorders (3 sources) Mood disorders; Translations: [DEPRESSION UNSPECIFIED] Onset: 04-23-2023 Other aftercare (1 source) 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 Chronic small vessel ischemic changes are noted. There is no mass or midline shift. Basilar cisterns are patent. Sinuses are clear. No calvarial abnormality. IMPRESSION: No acute intracranial findings. All CT scans at this facility use dose modulation, iterative reconstruction, and/or weight based dosing when appropriate to reduce radiation dose to as low as reasonably achievable. Finalized by Percy Lin MD on 05/07/2023 5:32 PM Normal [facility] 04-30-2023 Screens [id number]#[id number] 0TIFF Normal [facility] Heart TransthoracicOrdere d By: Colin Carrillo on 04-30-2023 Aortic Valve Area by Continuity of Peak Velocity 1.[address] [facility] Work Phone: Aortic Valve Area by Continuity of VTI 1.[address] [facility] Work Phone: [phone] AV mn grad 15.[address] [facility] Work Phone: AV pk grad 28.[address] [facility] Work Phone: AV pk amrit 2.[address] [facility] Work Phone: LV A4C EF 43.[address] [facility] Work Phone: LVIDd 3.[address] [facility] Work Phone: [phone] LVOT diam 2.[address] [facility] Work Phone: MV avg E/e' ratio 18.50 [facility] Work Phone: MV E/A ratio 0.[address] [facility] Work Phone: RVSP 34.[address] [facility] Work Phone: [facility] Work Phone: Heart Transthoracicon [address], [address] [facility], [place] [address] TRANSTHORACIC ECHOCARDIOGRAM REPORT Patient Name: MARTIN Cuba Physician: [id number] Colin Carrillo MD, [facility] Study Date: 04/29/2023 Ordering Provider: [id number] ANNIKA KABA MRN/PID: [id number] Fellow: Nurse: Date of /Age: 8 1950 Storage Management Consultant: ROBER Gender: F Additional Staff: Height: 152.40 cm Admit Date: Weight: 72.58 kg Admission Status: BSA: 1.70 m2 Department Location: [facility] Blood Pressure: 122 /64 mmHg Study Type: TRANSTHORACIC ECHO (TTE) COMPLETE Diagnosis/ICD: Nonrheumatic aortic (valve) stenosis-I35.0 Indication: Paroxysmal Atrial Fibrillation, COPD-on O2 at 2-3l, Diabetes, HTN, Hyperlipidemia, Tobacco Abuse, CKD-Stage III, Pulmonary HTN CPT Codes: Echo Complete w Full Doppler-[id number] Study Detail: The following Echo studies were [...] included)... Colin Henderson M D - 04/30/2023 [facility] [address], [address], [place] [address] TRANSTHORACIC ECHOCARDIOGRAM REPORT Patient Name: MARTIN HAGEN Reading Physician: [id number] Colin Carrillo MD, [facility] Study Date: 04/29/2023 Ordering Provider: [id number] ANNIKA KABA MRN/PID: [id number] Fellow: Nurse: Date of /Age: 8 1950 / 72 years Storage Management Consultant: ROBER Gender: F Additional Staff: Height: 152.40 cm Admit Date: Weight: 72.58 kg Admission Status: BSA: 1.70 m2 Department Location: [facility] Blood Pressure: 122 /64 mmHg Study Type: TRANSTHORACIC ECHO (TTE) COMPLETE Diagnosis/ICD: Nonrheumatic aortic (valve) stenosis-I35.0 Indication: Paroxysmal Atrial Fibrillation, COPD-on O2 at 2-3l, Diabetes, HTN, Hyperlipidemia, Tobacco Abuse, CKD-Stage III, Pulmonary HTN CPT Codes: Echo Complete w Full Doppler-08343 Study Detail: The following Echo studies were [...] 0.9 m/s (0.6-0.9m/s) PV Max P.3 mmHg [id number] Colin Carrillo MD, [facility] Electronically signed on 04/30/2023 at 3:47:08 PM Final (more content not included)... [facility] Work Phone: Ambulatory Visit Summaryon 1 06-29-2022 [...] PM EST With: Lani Wasserman CNP Where: [facility] Normal [facility] Ambulatory Visit Summary MARTIN HAGEN :1950 Visit Date:04/28/2023 Ambulatory Visit Instructions Your Diagnosis Recurrent UTI Pneumaturia Adrenal mass Urinary retention Renal cyst Urgency of urination Your Care Team Attending Physician - Alec XIE, Jacqui Perez. Primary Care Physician - SHAWN BARBER MD Referring Physician - Alec XIE, Jacqui Perez. This Is Your Medications List estradiol topical [...] PM EST With: Lani Wasserman CNP Where: [facility] Normal [facility] Patient Educationon 04-28-20 Patient Education Obstetrics [...] these instructions at home: Medicines ? Take jmmo-ycn-ngzapnm and prescription medicines only as told by [...] provider. Document Revised: 11/29/2020 Document Reviewed: 11/29/2020 Elsevier Patient Education ? 2022 [employer] [facility] Urology Office/Clinic Noteon 04-28-2023 Urology Office/Clinic [...] due to (more content not included)... Normal [facility] Comment on above: Result Comment: Elec tronically Signed By: Alec XIE, Jacqui Nieves\.br\Date and Time Signed: 04/28/23 10:55 EST\.br\Electronically Co-Signed By: Brisa Russell\.br\Date and Time Co-Signed: 04/28/23 10:25 EST Physician Referralon 023 Physician Referral [id number] 20 [id number]#1.0 0TIFF [facility] Physician Referralon 023 Physician Referral [id number] 20 [id number]#1.0 0TIFF [facility] Consent for Procedure/Surger yon 02-22-2023 Consent for Procedure/Surgery [id number]#1. 00TIFF [facility] Consent for Treatmenton 02-01 Consent for Treatment [id number]#1.0 0TIFF [facility] Inpatient Patient Summaryon 02-22-2023 Inpatient Patient Summary [place] [address] Clinical Summary Person Information Name: MARTIN HAGEN Age: 72 Years : 1950 Sex: Female PCP: SHAWN BARBER MD Marital Status: Race: White Ethnicity: Non- or Language: Setswana Visit Id: Visit Reason: RECURRENT UTI Speciality: Acuity: Enc Type: Outpatient Med Service: Surgery Arrival: 02/22/2023 09:20:37 Discharge: Dispo Type: Address: [address] [place] [phone] Provider Notes: Diagnosis: Emphysematous cystitis; Pneumaturia; Recurrent [...] Address: When: Jacqui Michael [address] [place] [phone] Business (1) [facility] Alli [facility], [place] [phone] Business (1) Comments: Office to schedule follow up in 1 to 2 months Patient Education Information: EU - Cystoscopy Discharge Instructions (CUSTOM) Normal [facility] IntraOperative Documentson 1 IntraOperative Documents [id number]#1. 00TIFF Normal [facility] Main OR Intraoperative Recor don 02-22-2023 Main OR Intraoperative Record IntraOp Document Type FTURO Summary Primary Physician: Jacqui Michael MD Finalized Date/Time: 02/22/23 10:39:48 Pt. Name: MARTIN HAGEN Jocelin/Sex: 1950 Female Med Rec #: [id number] Physician: Jacqui Michael MD Financial #: [id number] Pt. Type: O Room/Bed: / Admit/Disch: 02/22/23 09:20:37 - Institution: Case Times FTURO Entry 1 Patient Times In Room 02/22/23 10:18:00 Out Room 02/22/23 10:35:00 Procedure Times Start 02/22/23 10:23:00 Stop 02/22/23 10:29:00 Anesthesia Times Last Modified By: Keisha Pride RN 02/22/23 10:35:59 Case Attendance FTURO Entry 1 Entry 2 Entry 3 Case Attendee Jacqui Michael MD [facility], Keisha Pride RN, Keisha Schmitz Role Performed Surgeon - Primary Scrub - Primary Geographical Historian - Primary Time In 02/22/23 10:18:00 02/22/23 [...] CYSTOSCOPY LOCAL Primary Procedure Yes Primary Surgeon aJcqui Michael MD Start 02/22/23 10:23:00 Stop 02/22/23 [...] By: Keisha Pride RN 02/22/23 10:39 Normal [facility] Main OR Preoperative Recordo n 02-22-2023 Main OR Preoperative Record Holding Area Document Type FTURO Summary Primary Physician: Jacqui Michael MD Finalized Date/Time: 02/22/23 10:13:17 Pt. Name: XIAOMARTIN/Sex: 1950 Female Med Rec #: [id number] Physician: Jacqui Michael MD Financial #: [id number] Pt. Type: O Room/Bed: / Admit/Disch: 02/22/23 [...] Comment: chronic back pain Skin Integrity Intact, [place], Warm, & Dry Vitals - EU Blood Pressure 92/54 Pulse 69 bpm Respirations 20 br/min SPO2 99 % RN Reviewed Yes Last Modified By: Keisha Pride RN 02/22/23 10:13:16 General Comments: Temp 36.6 Finalized By: Keisha Pride RN Document Signatures Signed By: Maria Elena TEJEDABrisara 02/22/23 09:34 Keisha Pride RN 02/22/23 10:13 Normal [facility] Operative Reporton Operative Report Patient: LAVELLE HAGEN Age: 72 years Sex: Female : 1950 Associated Diagnoses: None Author: Jacqui Michael MD Procedure Operative Information Details: Date/ Time: 02/22/2023 10:33:00. Pre-Op Dx: Emphysematous cystitis (BFB32-OG N30.80, Discharge, Medical), Pneumaturia (KLN66-GF R39.89, Discharge, Medical), Recurrent UTI (PYJ91-CA N39.0, Discharge, Medical). Post-Op Dx: Same. Anesthesia [...] -Follow-up in 1 to 2 months.. Normal [facility] Comment on above: Result Comment: Elec tronically Signed By: Jacqui Michael MD\.br\Date and Time Signed: 02/22/23 10:37 EDT Outpatient Surgery Discharge Instructionon 02-22-2023 Outpatient Surgery Discharge Instruction [address] [address] Patient Discharge Instructions PERSON INFORMATION [...] Follow up: With: Address: When: Jacqui Michael [address] [place] [address] [phone] Business (1) [address] [place], [place] [phone] Business (1) Comments: Office to schedule follow [...] you have a fever over 100 degrees. XIAO Rivas ANNA, have received the attached patient education materials/instructions [...] to serve you. Thank you for choosing [facility] Normal [facility] Lab Reportson 02-10-2023 Lab Reports [id number]#1.0 0TIFF Normal [facility] C Urineon 02-05-2023 Bacteria identified Cx [...] Locations R1: This test was performed at: [facility], [address] [place] [address], [address]- , [place], Normal [facility] Comment on above: Performed By: #### 2 [id number] ####[facility] [address] [place] [address] Patient Educationon 02-04-20 23 Patient Education Obstetrics [...] these instructions at home: Medicines ? Take vtpj-rdx-idwsnup and prescription medicines only as told by [...] provider. Document Revised: 11/29/2020 Document Reviewed: 11/29/2020 [employer] Patient Education ? 2022 [employer] Normal [facility] 02-03-2023 Screens [id number]. 00CD:127 Normal [facility] Urology Office/Clinic Noteon 02-03-2023 Urology Office/Clinic [...] 2.7 (6.2 (more content not included)... Normal [facility] Comment on above: Result Comment: Elec tronically Signed By: Jacqui Michael MD\.br\Date and Time Signed: 02/03/23 10:45 EDT\.br\Electronically Co-Signed By: Brisa Russell\.br\Date and Time Co-Signed: 02/03/23 10:02 EDT\.br\Electronically Co-Signed By: Brisa Russell\.br\Date and Time Co-Signed: 02/03/23 10:12 EDT [facility] 12-31-2022 Screens [id number] 0CD:127 Normal [facility] Ambulatory Visit Summaryon 0 12-29-2022 Ambulatory [...] XIE, Jacqui Nieves Where: [facility] Patient Educationon 12-30-19 23 Patient [...] this condition includes: ? Antibiotic medicine. ? Htzt-rcc-omiragh medicines to treat discomfort. ? Drinking enough [...] these instructions at home: Medicines ? Take nsuz-dyi-wyohmfc and prescription medicines only as told by [...] Document Revie (more content not included)... Normal [facility] Urology Office/Clinic Noteon 12-29-2022 Urology Office/Clinic Note Chief Complaint UTI HPI Staff KML pt. Last seen in our office by JAZMYN 07/29/22 due to Adrenal Mass, Urinary Retention, and Renal Cyst. Has 6 mos f/u appt w/JAZMYN on 02/03/23. Pt is here today due to recent UTI BMP 11/24/22 *BUN 35.0 & Crea 1.83 +UACS 12/19/22 >100k Klebsiella pneumoniae Tx'd w/Cephalexin 500mg BID a19lpwt Pt just started taking on Wednesday. Increased urgency. Odor to urine. Increased leaking. Home Health Nurse took sample to [facility]. Pt states she had air in [...] Skin: No rashes or suspicious lesions Assessment/Plan [facility] patient, present with daughter. BBSQ - 21 [...] given stability and metabolic workup wnl Ordered: [id number] Measure Post Void residual urine and/or bladder [...] Psoriatic arthrit (more content not included)... Normal [facility] Comment on above: Result Comment: Elec [...] depressive disorder PHQ2 Screen Positive; Status:Complete; Done: [id number] Overweight with body mass index (BMI) of 29 to 29.9 in adult Healthy Weight Tips; Status:Complete; Done: [id number] SocHx: Current smoker Tobacco Use Screening; Status:Complete; Done: [id number] You need to stop smoking. Though it is not easy, more than half of all adult smokers have quit. We encourage you to write down all the reasons you should quit smoking and set a quit date for yourself. Ask us how we can help. You may also call 2-410-SNZRThumbtackNOW for free resources and assistance.; Status:Complete; Done: [id number] Tobacco Use Screening; Status:Complete; Done: [id number] Patient Instructions Please bring all medicines, vitamins, [...] to continue without modifications. 2. Records from [facility] 3. Return for follow-up; in the interim, contact the office if new symptoms arise. Dr. Arriaga 4 months [facility] f/u: 'doing ok' MARTIN HAGEN is being seen for follow-up of a hospitalization for dyspnea. Patient presents to the office in a wheelchair, utilizing oxygen and is accompanied by family member. This is initial in clinic follow-up at [facility]. She has previously been managed by [facility] since approximately 2021. Both she and [...] are requesting to establish cardiology follow-up with [facility]. October 2022 hospitalized at [facility] due to shortness of breath, seen in consultation by Dr. Jean. Echocardiogram at that time showed moderate aortic stenosis peak 46, mean 26. She was diuresed and some documentation that she was to follow-up with nephrology (not completed to date). [facility] but is currently [...] regular basis (more content not included)... Normal [facility] Tobacco Screening.on 023 Adult depression screening assessment Yes [place] [employer] 250 DO Work Phone: Adult depression screening assessment Moderate (10-14) [place] [employer] 250 DO Work Phone: Fall risk assessment a) No falls within the last year -[place] [employer] demi 250 DO Work Phone: Tobacco use status CPHS a) Yes ALVIN-[facility]Astrid simms 250 DO Work Phone: Tobacco Screening. Yes Uvaldo [facility]-Sandtrevon demi 250 DO Work Phone: Tobacco Screening. 1-Several days ALVIN -[facility]-Astrid simms 250 DO Work Phone: Tobacco Screening. 3-Nearly every day [facility] HeartRocky simms 250 DO Work Phone: Tobacco Screening. 0-Not at all Micha [facility]-Astrid simms 250 DO Work Phone: Tobacco Screening. Somewhat Difficult [facility] Heart[facility] simms 250 DO Work Phone: Basic Metabolic Panelon 07-2 Anion gap [Moles/Vol] Not performed Normal 6.0-15.0 [facility] Comment on above: Performed By: #### B MP, MG, FE and TIBC, AFSANEH, CBC #### [facility] [address] [place] [address] [place] Calcium [Mass/Vol] 9.4 mg/dL Normal 8.6-10.3 [facility] Comment on above: Performed By: #### B MP, MG, FE and TIBC, AFSANEH, CBC #### [facility] [address] [place] [address] [place] Chloride [Moles/Vol] 92 mmol/L Low 98-107 [facility] Comment on above: Performed By: #### B MP, MG, FE and TIBC, AFSANEH, CBC #### [facility] [address] [place] [address] [place] CO2 [Moles/Vol] mmol/L High 21.0-31.0 [facility] Comment on above: Performed By: #### B MP, MG, FE and TIBC, AFSANEH, CBC #### [facility] [address] [place] [id number] [place] Creatinine [Mass/Vol] 1.54 mg/dL High 0.60-1.20 [facility] Comment on above: Performed By: #### B MP, MG, FE and TIBC, AFSANEH, CBC #### [address] Creatinine Clr Calc Pharmacy 29.80 [facility] Comment on above: Result Comment: PERF ORMED BY: [place] [address] PATHOLOGIST MILK RUNNER KOBE VENCES M.D. Performed By: #### B MP, MG, FE and TIBC, AFSANEH, CBC #### [address] GFR/1.73 sq M.predicted MDRD (S/P/Bld) [Vol rate/Area] 35.431 mL/min/{1.73_m2} [facility] Comment on above: Performed By: #### B MP, MG, FE and TIBC, AFSANEH, CBC #### [address] Glucose [Mass/Vol] 95 mg/dL Normal 70-100 [facility] Comment on above: Result Comment: [facility] Glucose Reference Range is dependent on time and content of last meal. Glucose of more than 200 mg/dL in a nonstressed, ambulatory subject supports the diagnosis of Diabetes Mellitus. ADA recommended reference range Performed By: #### B MP, MG, FE and TIBC, AFSANEH, CBC #### [address] Potassium [Moles/Vol] 4.6 mmol/L Normal 3.5-5.1 [facility] Comment on above: Performed By: #### B MP, MG, FE and TIBC, AFSANEH, CBC #### [address] Sodium [Moles/Vol] 141 mmol/L Normal 136-145 [facility] Comment on above: Performed By: #### B MP, MG, FE and TIBC, AFSANEH, CBC #### [facility] [address] [place] [address] [place] Urea nitrogen [Mass/Vol] 35 mg/dL High 7-25 [facility] Comment on above: Performed By: #### B MP, MG, FE and TIBC, AFSANEH, CBC #### [facility] [address] Basophils Auto (Bld) [#/Vol] Ordered By: Gina Poole on 11-21-2022 Basophils (Bld) [#/Vol] 0.0 10*3/uL 0.0-0.2 [facility] Basophils/100 WBC Auto (Bld) Ordered By: Gina Poole on 11-21-2022 Basophils/100 WBC (Bld) 0.3 % . [facility] Calcium [Mass/volume] in Ser um or PlasmaOrdered By: Gina Poole on 11-21-2022 Calcium [Mass/Vol] 9.4 mg/dL 8.6-10.3 [facility] Carbon dioxide, total [Moles /volume] in Serum or PlasmaOrdered By: Gina Poole on 11-21-2022 CO2 [Moles/Vol] mmol/L 21.0-31.0 [facility] Chloride [Moles/volume] in S arti or PlasmaOrdered By: Gina Poole on 11-21-2022 Chloride [Moles/Vol] 92 mmol/L 98-107 [facility] Complete Blood Count Auto Di ffon 11-21-2022 Basophils (Bld) [#/Vol] 0.0 10*3/uL Normal 0.0-0.2 [facility] Comment on above: Result Comment: PERF ORMED BY: [place] [address] PATHOLOGIST MILK RUNNER KOBE VENCES M.D. Performed By: #### B MP, MG, FE and TIBC, AFSANEH, CBC #### [facility] [address] Basophils/100 WBC (Bld) 0.3 % Normal . [facility] Comment on above: Performed By: #### B MP, MG, FE and TIBC, AFSANEH, CBC #### [facility] [address] [place] [address] Eosinophils (Bld) [#/Vol] 0.2 10*3/uL Normal 0.0-0.45 [facility] Comment on above: Performed By: #### B MP, MG, FE and TIBC, AFSANEH, CBC #### [address] Eosinophils/100 WBC (Bld) 2.7 % Normal . [facility] Comment on above: Performed By: #### B MP, MG, FE and TIBC, AFSANEH, CBC #### [address] Erythrocyte distribution width (RBC) [Ratio] 15.2 % Normal 11.9-15.3 [facility] Comment on above: Performed By: #### B MP, MG, FE and TIBC, AFSANEH, CBC #### [address] Hematocrit (Bld) [Volume fraction] 24.7 % Low 34.0-46.4 [facility] Comment on above: Performed By: #### B MP, MG, FE and TIBC, AFSANEH, CBC #### [address] Hemoglobin (Bld) [Mass/Vol] 8.0 g/dL Low 11.8-15.4 [facility] Comment on above: Performed By: #### B MP, MG, FE and TIBC, AFSANEH, CBC #### [address] Lymphocytes (Bld) [#/Vol] 1.1 10*3/uL Normal 1.00-4.8 [facility] Comment on above: Performed By: #### B MP, MG, FE and TIBC, AFSANEH, CBC #### [address] Lymphocytes/100 WBC (Bld) 18.9 % Normal . [facility] Comment on above: Performed By: #### B MP, MG, FE and TIBC, AFSANEH, CBC #### [address] MCH (RBC) [Entitic mass] 29.0 pg Normal 24.7-34.3 [facility] Comment on above: Performed By: #### B MP, MG, FE and TIBC, AFSANEH, CBC #### [address] MCV (RBC) [Entitic vol] 89.8 fL Normal 80-100 [facility] Comment on above: Performed By: #### B MP, MG, FE and TIBC, AFSANEH, CBC #### [address] Mean Corpuscular HGB Conc 32.3 g/dL Normal 32.0-35.0 [facility] Comment on above: Performed By: #### B MP, MG, FE and TIBC, AFSANEH, CBC #### [address] Monocytes (Bld) [#/Vol] 0.4 10*3/uL Normal 0.0-0.8 [facility] Comment on above: Performed By: #### B MP, MG, FE and TIBC, AFSANEH, CBC #### [address] Monocytes/100 WBC (Bld) 7.3 % Normal . [facility] Comment on above: Performed By: #### B MP, MG, FE and TIBC, AFSANEH, CBC #### [address] Neutrophils (Bld) [#/Vol] 4.1 10*3/uL Normal 1.8-7.7 [facility] Comment on above: Performed By: #### B MP, MG, FE and TIBC, AFSANEH, CBC #### [address] Neutrophils/100 WBC (Bld) 70.8 % Normal . [facility] Comment on above: Performed By: #### B MP, MG, FE and TIBC, AFSANEH, CBC #### [address] NRBC% 0.1 /100{WBC} Normal 0-0.5 [facility] Comment on above: Performed By: #### B MP, MG, FE and TIBC, AFSANEH, CBC #### [address] Platelet mean volume (Bld) [Entitic vol] 7.8 fL Normal 6.3-10.7 [facility] Comment on above: Performed By: #### B MP, MG, FE and TIBC, AFSANEH, CBC #### [address] Platelets (Bld) [#/Vol] 132 10*3/uL Low 150-450 [facility] Comment on above: Performed By: #### B MP, MG, FE and TIBC, AFSANEH, CBC #### [address] RBC (Bld) [#/Vol] 2.75 10*6/uL Low 3.60-5.00 [facility] Comment on above: Performed By: #### B MP, MG, FE and TIBC, AFSANEH, CBC #### [address] WBC (Bld) [#/Vol] 5.7 10*3/uL Normal 3.8-11.6 [facility] Comment on above: Performed By: #### B MP, MG, FE and TIBC, AFSANEH, CBC #### [address] Creatinine [Mass/volume] in Serum or PlasmaOrdered By: Gina Poole on 11-21-2022 Creatinine [Mass/Vol] 1.54 mg/dL 0.60-1.20 [facility] Eosinophils Auto (Bld) [#/Vo l]Ordered By: Gina Poole on 11-21-2022 Eosinophils (Bld) [#/Vol] 0.2 10*3/uL 0.0-0.45 [facility] Eosinophils/100 WBC Auto (Bl d)Ordered By: Gina Poole on 11-21-2022 Eosinophils/100 WBC (Bld) 2.7 % . [facility] Erythrocyte distribution wid th Auto (RBC) [Ratio]Ordered By: Gina Poole on 11-21-2022 Erythrocyte distribution width (RBC) [Ratio] 15.2 % 11.9-15.3 [facility] Glucose Glucometer (BldC) [M ass/Vol]Ordered By: Gina Poole on 11-21-2022 Glucose [Mass/Vol] 149 mg/dL [facility] Comment on above: Random Glucose Refer ence Range is dependent on time and content of last meal. Glucose of more than 200 mg/dL in a nonstressed, ambulatory subject supports the diagnosis of Diabetes Mellitus. Glucose Poct Glucometerson 0 11-21-2022 Glucose [Mass/Vol] 149 mg/dL Normal [facility] Comment on above: Result Comment: [place] Glucose Reference Range is dependent on time and content of last meal. Glucose of more than 200 mg/dL in a nonstressed, ambulatory subject supports the diagnosis of Diabetes Mellitus. PERFORMED BY: [place] [address] PATHOLOGIST MILK RUNNER KOBE VENCES M.D. Performed By: #### B MP, MG, FE and TIBC, AFSANEH, CBC #### [facility] [address] [place] [address] Glucose [Mass/Vol] 118 mg/dL Normal [facility] Comment on above: Result Comment: [place] Glucose Reference Range is dependent on time and content of last meal. Glucose of more than 200 mg/dL in a nonstressed, ambulatory subject supports the diagnosis of Diabetes Mellitus. PERFORMED BY: [place] [address] PATHOLOGIST MILK RUNNER KOBE VENCES M.D. Performed By: #### B MP, MG, FE and TIBC, AFSANEH, CBC #### [facility] [address] [place] [address] [place] Glucose [Mass/volume] in Ser um or PlasmaOrdered By: Gina Poole on 11-21-2022 Glucose [Mass/Vol] 95 mg/dL 70-100 [facility] Comment on above: ADA recommended refe rence rangeRandom Glucose Reference Range is dependent on time and content of last meal. Glucose of more than 200 mg/dL in a nonstressed, ambulatory subject supports the diagnosis of Diabetes Mellitus. Hematocrit Auto (Bld) [Volum e fraction]Ordered By: Gina Poole on 11-21-2022 Hematocrit (Bld) [Volume fraction] 24.7 % 34.0-46.4 [facility] Hemoglobin [Mass/volume] in BloodOrdered By: Gina Poole on 11-21-2022 Hemoglobin (Bld) [Mass/Vol] 8.0 g/dL 11.8-15.4 [facility] Leukocytes [#/volume] correc loan for nucleated erythrocytes in Blood by Automated counOrdered By: Gina Poole on 11-21-2022 WBC corrected for nucl RBC Auto (Bld) [#/Vol] 5.7 10*3/uL 3.8-11.6 [facility] Lymphocytes Auto (Bld) [#/Vo l]Ordered By: Gina Poole on 11-21-2022 Lymphocytes (Bld) [#/Vol] 1.1 10*3/uL 1.00-4.8 [facility] Lymphocytes/100 WBC Auto (Bl d)Ordered By: Gina Poole on 11-21-2022 Lymphocytes/100 WBC (Bld) 18.9 % . [facility] MCH Auto (RBC) [Entitic mass ]Ordered By: Gina Poole on 11-21-2022 MCH (RBC) [Entitic mass] 29.0 pg 24.7-34.3 [facility] MCHC Auto (RBC) [Mass/Vol]Or dered By: Gina Poole on 11-21-2022 MCHC (RBC) [Mass/Vol] 32.3 g/dL 32.0-35.0 [facility] MCV Auto (RBC) [Entitic vol] Ordered By: Gina Poole on 11-21-2022 MCV (RBC) [Entitic vol] 89.8 fL 80-100 [facility] Monocytes Auto (Bld) [#/Vol] Ordered By: Gina Poloe on 11-21-2022 Monocytes (Bld) [#/Vol] 0.4 10*3/uL 0.0-0.8 [facility] Monocytes/100 WBC Auto (Bld) Ordered By: Gina Poole on 11-21-2022 Monocytes/100 WBC (Bld) 7.3 % . [facility] Neutrophils Auto (Bld) [#/Vo l]Ordered By: Gina Poole on 11-21-2022 Neutrophils (Bld) [#/Vol] 4.1 10*3/uL 1.8-7.7 [facility] Neutrophils/100 WBC Auto (Bl d)Ordered By: Gina Poole on 11-21-2022 Neutrophils/100 WBC (Bld) 70.8 % . [facility] No Panel InformationOrdered By: Gina Poole on 11-21-2022 Estimated GFR (CKD-EPI) 35.431 mL/Min [facility] Creatinine Clearance (Chem 29.80 [facility] Nucleated erythrocytes [Pres ence] in Blood by Automated countOrdered By: Gina Poole on 11-21-2022 Nucleated RBC Auto Ql (Bld) 0.1 /100{WBC} 0-0.5 [facility] Platelet mean volume Auto (B ld) [Entitic vol]Ordered By: Gina Poole on 11-21-2022 Platelet mean volume (Bld) [Entitic vol] 7.8 fL 6.3-10.7 [facility] Platelets Auto (Bld) [#/Vol] Ordered By: Gina Poole on 11-21-2022 Platelets (Bld) [#/Vol] 132 10*3/uL 150-450 [facility] Potassium [Moles/volume] in Serum or PlasmaOrdered By: Gina Poole on 11-21-2022 Potassium [Moles/Vol] 4.6 mmol/L 3.5-5.1 [facility] RBC Auto (Bld) [#/Vol]Ordere d By: Gina Poole on 11-21-2022 RBC (Bld) [#/Vol] 2.75 10*6/uL 3.60-5.00 [facility] Serum or plasma anion gap de terminationOrdered By: Gina Poole on 11-21-2022 Anion gap [Moles/Vol] TNP [facility] Comment on above: Test not performed Sodium [Moles/volume] in Ser um or PlasmaOrdered By: Gina Poole on 11-21-2022 Sodium [Moles/Vol] 141 mmol/L 136-145 [facility] Urea nitrogen [Mass/volume] in Serum or PlasmaOrdered By: Gina Poole on 11-21-2022 Urea nitrogen [Mass/Vol] 35 mg/dL 7- [facility] WBC Auto (Bld) [#/Vol]Ordere d By: Gina Poole on 11-21-2022 WBC (Bld) [#/Vol] 5.7 10*3/uL 3.8-11.6 [facility] XR chest 2V*on 11-21-2022 XR chest 2V* [facility] [place] [address] XRay Report Signed Patient: Martin Hagen MR#: [id number] 52 : 1950 Acct:[id number] Age/Sex: 71 / F ADM Date: 11/18/22 Loc: Room: [address] [place] [address] Type: ADM IN Attending Dr: Gina Poole [...] Candace Godfrey M.D.11/21/2022 9:26 AM Dictation Location: [place] [address] Transcribed By: ELIANA 11/21/22925 Dictated By: Candace Godfrey II, MD 11/21/22923 Signed By: 11/21/22925 [facility] Basic Metabolic Panelon 11-01 Anion gap [Moles/Vol] 7.5 mmol/L Normal 6.0-15.0 [facility] Comment on above: Performed By: #### C BC, BMP #### [facility] [address] Calcium [Mass/Vol] 8.7 mg/dL Normal 8.6-10.3 [facility] Comment on above: Performed By: #### C BC, BMP #### [facility] [address] Chloride [Moles/Vol] 99 mmol/L Normal 98-107 [facility] Comment on above: Performed By: #### C BC, BMP #### [facility] [address] [place] [address] [place] CO2 [Moles/Vol] 42.2 mmol/L High 21.0-31.0 [facility] Comment on above: Performed By: #### C BC, BMP #### [facility] [address] [place] [address] [place] Creatinine [Mass/Vol] 1.73 mg/dL High 0.60-1.20 [facility] Comment on above: Performed By: #### C BC, BMP #### [facility] [address] [place] [address] [place] Creatinine Clr Calc Pharmacy 26.49 [facility] Comment on above: Result Comment: PERF ORMED BY: [place] [address] PATHOLOGIST MILK RUNNER KOBE VENCES M.D. Performed By: #### C BC, BMP #### [facility] [address] [place] [address] [place] GFR/1.73 sq M.predicted MDRD (S/P/Bld) [Vol rate/Area] 30.815 mL/min/{1.73_m2} [facility] Comment on above: Performed By: #### C BC, BMP #### [address] Glucose [Mass/Vol] 104 mg/dL High 70-100 [facility] Comment on above: Result Comment: [place] Glucose Reference Range is dependent on time and content of last meal. Glucose of more than 200 mg/dL in a nonstressed, ambulatory subject supports the diagnosis of Diabetes Mellitus. ADA recommended reference range Performed By: #### C BC, BMP #### [facility] [address] Potassium [Moles/Vol] 4.7 mmol/L Normal 3.5-5.1 [facility] Comment on above: Performed By: #### C BC, BMP #### [address] Sodium [Moles/Vol] 144 mmol/L Normal 136-145 [facility] Comment on above: Performed By: #### C BC, BMP #### [address] Urea nitrogen [Mass/Vol] 33 mg/dL High 7-25 [facility] Comment on above: Performed By: #### C BC, BMP #### [address] Complete Blood Count Auto Di ffon 11-20-2022 Basophils (Bld) [#/Vol] 0.0 10*3/uL Normal 0.0-0.2 [facility] Comment on above: Result Comment: PERF ORMED BY: [place] [address] PATHOLOGIST MILK RUNNER KOBE VENCES M.D. Performed By: #### C BC, BMP #### [place] [address] [place] Basophils/100 WBC (Bld) 0.4 % Normal . [facility] Comment on above: Performed By: #### C BC, BMP #### [place] [address] [place] Eosinophils (Bld) [#/Vol] 0.1 10*3/uL Normal 0.0-0.45 [facility] Comment on above: Performed By: #### C BC, BMP #### [address] Eosinophils/100 WBC (Bld) 2.1 % Normal . [facility] Comment on above: Performed By: #### C BC, BMP #### [address] Erythrocyte distribution width (RBC) [Ratio] 15.6 % High 11.9-15.3 [facility] Comment on above: Performed By: #### C BC, BMP #### [address] Hematocrit (Bld) [Volume fraction] 24.9 % Low 34.0-46.4 [facility] Comment on above: Performed By: #### C BC, BMP #### [address] Hemoglobin (Bld) [Mass/Vol] 8.0 g/dL Low 11.8-15.4 [facility] Comment on above: Performed By: #### C BC, BMP #### [address] Lymphocytes (Bld) [#/Vol] 1.2 10*3/uL Normal 1.00-4.8 [facility] Comment on above: Performed By: #### C BC, BMP #### [address] Lymphocytes/100 WBC (Bld) 22.4 % Normal . [facility] Comment on above: Performed By: #### C BC, BMP #### [address] MCH (RBC) [Entitic mass] 28.9 pg Normal 24.7-34.3 [facility] Comment on above: Performed By: #### C BC, BMP #### [address] MCV (RBC) [Entitic vol] 90.0 fL Normal 80-100 [facility] Comment on above: Performed By: #### C BC, BMP #### [facility] [address] Mean Corpuscular HGB Conc 32.1 g/dL Normal 32.0-35.0 [facility] Comment on above: Performed By: #### C BC, BMP #### [facility] [address] [place] [address] [place] Monocytes (Bld) [#/Vol] 0.4 10*3/uL Normal 0.0-0.8 [facility] Comment on above: Performed By: #### C BC, BMP #### [place] [address] [place] Monocytes/100 WBC (Bld) 6.7 % Normal . [facility] Comment on above: Performed By: #### C BC, BMP #### [facility] [address] [place] [address] Neutrophils (Bld) [#/Vol] 3.7 10*3/uL Normal 1.8-7.7 [facility] Comment on above: Performed By: #### C BC, BMP #### [place] [address] [place] Neutrophils/100 WBC (Bld) 68.4 % Normal . [facility] Comment on above: Performed By: #### C BC, BMP #### [facility] [address] [place] [address] [place] NRBC% 0.1 /100{WBC} Normal 0-0.5 [facility] Comment on above: Performed By: #### C BC, BMP #### [address] Platelet mean volume (Bld) [Entitic vol] 7.9 fL Normal 6.3-10.7 [facility] Comment on above: Performed By: #### C BC, BMP #### [place] [address] [place] Platelets (Bld) [#/Vol] 133 10*3/uL Low 150-450 [facility] Comment on above: Performed By: #### C BC, BMP #### [facility] [address] RBC (Bld) [#/Vol] 2.77 10*6/uL Low 3.60-5.00 [facility] Comment on above: Performed By: #### C BC, BMP #### [facility] [address] WBC (Bld) [#/Vol] 5.4 10*3/uL Normal 3.8-11.6 [facility] Comment on above: Performed By: #### C BC, BMP #### [facility] [address] Glucose Poct Glucometerson 0 11-20-2022 Glucose [Mass/Vol] 135 mg/dL Normal [facility] Comment on above: Result Comment: [facility] Glucose Reference Range is dependent on time and content of last meal. Glucose of more than 200 mg/dL in a nonstressed, ambulatory subject supports the diagnosis of Diabetes Mellitus. PERFORMED BY: [place] [address] PATHOLOGIST MILK RUNNER KOBE VENCES M.D. Performed By: #### G LULS #### Point of Care testing , Glucose [Mass/Vol] 123 mg/dL Normal [facility] Comment on above: Result Comment: [facility] Glucose Reference Range is dependent on time and content of last meal. Glucose of more than 200 mg/dL in a nonstressed, ambulatory subject supports the diagnosis of Diabetes Mellitus. PERFORMED BY: [place] [address] PATHOLOGIST MILK RUNNER KOBE VENCES M.D. Performed By: #### B MP, MG, FE and TIBC, AFSANEH, CBC #### [address] Glucose [Mass/Vol] 116 mg/dL Normal [facility] Comment on above: Result Comment: [facility] Glucose Reference Range is dependent on time and content of last meal. Glucose of more than 200 mg/dL in a nonstressed, ambulatory subject supports the diagnosis of Diabetes Mellitus. PERFORMED BY: [place] [address] PATHOLOGIST MILK RUNNER KOBE VENCES M.D. Performed By: #### G TASHA #### Point of Care testing , Glucose [Mass/Vol] 130 mg/dL Normal [facility] Comment on above: Result Comment: [facility] Glucose Reference Range is dependent on time and content of last meal. Glucose of more than 200 mg/dL in a nonstressed, ambulatory subject supports the diagnosis of Diabetes Mellitus. PERFORMED BY: [place] [address] PATHOLOGIST MILK RUNNER KOBE VENCES M.D. Performed By: #### B MP, MG, FE and TIBC, AFSANEH, CBC #### [address] Basic Metabolic Panelon 07-2 -2022 Anion gap [Moles/Vol] 9.8 mmol/L Normal 6.0-15.0 [facility] Comment on above: Performed By: #### B MP, MG, FE and TIBC, AFSANEH, CBC #### [address] Calcium [Mass/Vol] 8.1 mg/dL Low 8.6-10.3 [facility] Comment on above: Performed By: #### B MP, MG, FE and TIBC, AFSANEH, CBC #### [address] Chloride [Moles/Vol] 101 mmol/L Normal 98-107 [facility] Comment on above: Performed By: #### B MP, MG, FE and TIBC, AFSANEH, CBC #### [address] CO2 [Moles/Vol] 38.1 mmol/L High 21.0-31.0 [facility] Comment on above: Performed By: #### B MP, MG, FE and TIBC, AFSANEH, CBC #### [facility] [address] Creatinine [Mass/Vol] 1.76 mg/dL High 0.60-1.20 [facility] Comment on above: Performed By: #### B MP, MG, FE and TIBC, AFSANEH, CBC #### [facility] [address] [place] [address] [place] Creatinine Clr Calc Pharmacy 25.90 [facility] Comment on above: Performed By: #### B MP, MG, FE and TIBC, AFSANEH, CBC #### [facility] [address] [place] [address] [place] GFR/1.73 sq M.predicted MDRD (S/P/Bld) [Vol rate/Area] 30.185 mL/min/{1.73_m2} [facility] Comment on above: Performed By: #### B MP, MG, FE and TIBC, AFSANEH, CBC #### [address] Glucose [Mass/Vol] 100 mg/dL Normal 70-100 [facility] Comment on above: Result Comment: [facility] Glucose Reference Range is dependent on time and content of last meal. Glucose of more than 200 mg/dL in a nonstressed, ambulatory subject supports the diagnosis of Diabetes Mellitus. ADA recommended reference range Performed By: #### B MP, MG, FE and TIBC, AFSANEH, CBC #### [facility] [address] Potassium [Moles/Vol] 4.9 mmol/L Normal 3.5-5.1 [facility] Comment on above: Performed By: #### B MP, MG, FE and TIBC, AFSANEH, CBC #### [place] [address] [place] Sodium [Moles/Vol] 144 mmol/L Normal 136-145 [facility] Comment on above: Performed By: #### B MP, MG, FE and TIBC, AFSANEH, CBC #### [facility] [address] [place] [address] [place] Urea nitrogen [Mass/Vol] 28 mg/dL High 7-25 [facility] Comment on above: Performed By: #### B MP, MG, FE and TIBC, AFSANEH, CBC #### [address] Complete Blood Count Auto Di ffon 11-19-2022 Basophils (Bld) [#/Vol] 0.0 10*3/uL Normal 0.0-0.2 [facility] Comment on above: Result Comment: PERF ORMED BY: [place] [address] PATHOLOGIST MILK RUNNER KOBE VENCES M.D. Performed By: #### B MP, MG, FE and TIBC, AFSANEH, CBC #### [address] Basophils/100 WBC (Bld) 0.7 % Normal . [facility] Comment on above: Performed By: #### B MP, MG, FE and TIBC, AFSANEH, CBC #### [address] Eosinophils (Bld) [#/Vol] 0.1 10*3/uL Normal 0.0-0.45 [facility] Comment on above: Performed By: #### B MP, MG, FE and TIBC, AFSANEH, CBC #### [address] Eosinophils/100 WBC (Bld) 2.0 % Normal . [facility] Comment on above: Performed By: #### B MP, MG, FE and TIBC, AFSANEH, CBC #### [address] Erythrocyte distribution width (RBC) [Ratio] 15.5 % High 11.9-15.3 [facility] Comment on above: Performed By: #### B MP, MG, FE and TIBC, AFSANEH, CBC #### [address] Hematocrit (Bld) [Volume fraction] 26.7 % Low 34.0-46.4 [facility] Comment on above: Performed By: #### B MP, MG, FE and TIBC, AFSANEH, CBC #### [address] Hemoglobin (Bld) [Mass/Vol] 8.5 g/dL Low 11.8-15.4 [facility] Comment on above: Performed By: #### B MP, MG, FE and TIBC, AFSANEH, CBC #### [address] Lymphocytes (Bld) [#/Vol] 1.6 10*3/uL Normal 1.00-4.8 [facility] Comment on above: Performed By: #### B MP, MG, FE and TIBC, AFSANEH, CBC #### [address] Lymphocytes/100 WBC (Bld) 25.1 % Normal . [facility] Comment on above: Performed By: #### B MP, MG, FE and TIBC, AFSANEH, CBC #### [address] MCH (RBC) [Entitic mass] 29.0 pg Normal 24.7-34.3 [facility] Comment on above: Performed By: #### B MP, MG, FE and TIBC, AFSANEH, CBC #### [address] MCV (RBC) [Entitic vol] 91.3 fL Normal 80-100 [facility] Comment on above: Performed By: #### B MP, MG, FE and TIBC, AFSANEH, CBC #### [address] Mean Corpuscular HGB Conc 31.8 g/dL Low 32.0-35.0 [facility] Comment on above: Performed By: #### B MP, MG, FE and TIBC, AFSANEH, CBC #### [address] Monocytes (Bld) [#/Vol] 0.4 10*3/uL Normal 0.0-0.8 [facility] Comment on above: Performed By: #### B MP, MG, FE and TIBC, AFSANEH, CBC #### [address] Monocytes/100 WBC (Bld) 6.6 % Normal . [facility] Comment on above: Performed By: #### B MP, MG, FE and TIBC, AFSANEH, CBC #### [address] Neutrophils (Bld) [#/Vol] 4.1 10*3/uL Normal 1.8-7.7 [facility] Comment on above: Performed By: #### B MP, MG, FE and TIBC, AFSANEH, CBC #### [address] Neutrophils/100 WBC (Bld) 65.6 % Normal . [facility] Comment on above: Performed By: #### B MP, MG, FE and TIBC, AFSANEH, CBC #### [address] NRBC% 0.1 /100{WBC} Normal 0-0.5 [facility] Comment on above: Performed By: #### B MP, MG, FE and TIBC, AFSANEH, CBC #### [address] Platelet mean volume (Bld) [Entitic vol] 7.6 fL Normal 6.3-10.7 [facility] Comment on above: Performed By: #### B MP, MG, FE and TIBC, AFSANEH, CBC #### [address] Platelets (Bld) [#/Vol] 140 10*3/uL Low 150-450 [facility] Comment on above: Performed By: #### B MP, MG, FE and TIBC, AFSANEH, CBC #### [address] RBC (Bld) [#/Vol] 2.93 10*6/uL Low 3.60-5.00 [facility] Comment on above: Performed By: #### B MP, MG, FE and TIBC, AFSANEH, CBC #### [facility] [address] WBC (Bld) [#/Vol] 6.2 10*3/uL Normal 3.8-11.6 [facility] Comment on above: Performed By: #### B MP, MG, FE and TIBC, AFSANEH, CBC #### [facility] [address] [place] [address] Creatine Kinaseon 11-19-2022 CK [Catalytic activity/Vol] 31 U/L Normal [facility] Comment on above: Order Comment: ultra sound come back in 10 mins Performed By: #### B MP, MG, FE and TIBC, AFSANEH, CBC #### [address] CK [Catalytic activity/Vol] 35 U/L Normal [facility] Comment on above: Performed By: #### B MP, MG, FE and TIBC, AFSANEH, CBC #### [address] Creatine kinase [Enzymatic a ctivity/volume] in Serum or PlasmaOrdered By: Gina Poole on 11-19-2022 CK [Catalytic activity/Vol] 31 U/L [facility] ECH echo transthoracicon ECH echo transthoracic [facility] Main [place] [address] [place] [address] Echocardiogram Signed Patient: Martin Hagen MR#: [id number] 52 : 1950 Acct:[id number] Age/Sex: 71 / F ADM Date: 11/18/22 Loc: Room: [address] [place] [address] Type: ADM IN Attending Dr: Gina Poole DO Ordering Provider: Gina Poole DO Date of Service: 11/18/22 ECH/ECH echo transthoracic: Shortness of Breath/Dyspnea Copies to: Colin Carrillo MD, FACC Gina Poole DO Height: 60 in Weight: 169 lb Performed By: Adrianna Díaz [facility] BSA: 1.7 m2 BP: 150/74 mmHg HR: [...] 1.5 cm2 (more content not included)... Normal [facility] Ferritinon 11-19-2022 Ferritin [Mass/Vol] 388.8 ng/mL High 11.0-306.8 [facility] Comment on above: Result Comment: PERF ORMED BY: [place] [address] PATHOLOGIST MILK RUNNER KOBE VENCES M.D. Performed By: #### B MP, MG, FE and TIBC, AFSANEH, CBC #### [facility] [address] Ferritin [Mass/volume] in Se rum or PlasmaOrdered By: Gina Poole on 11-19-2022 Ferritin [Mass/Vol] 388.8 ng/mL 11.0-306.8 [facility] Glucose Poct Glucometerson 0 11-19-2022 Glucose [Mass/Vol] 140 mg/dL Normal [facility] Comment on above: Result Comment: [place] [facility] Glucose Reference Range is dependent on time and content of last meal. Glucose of more than 200 mg/dL in a nonstressed, ambulatory subject supports the diagnosis of Diabetes Mellitus. PERFORMED BY: [facility] [address] [place] [address] PATHOLOGIST MILK RUNNER KOBE VENCES M.D. Performed By: #### B MP, MG, FE and TIBC, AFSANEH, CBC #### [address] Commemt1 Glu2: Cleaned Meter Normal [facility] Comment on above: Result Comment: PERF ORMED BY: [facility] [address] [place] [address] PATHOLOGIST MILK RUNNER KOBE VENCES M.D. Performed By: #### B MP, MG, FE and TIBC, AFSANEH, CBC #### [address] Glucose [Mass/Vol] 168 mg/dL Normal [facility] Comment on above: Result Comment: [facility] Glucose Reference Range is dependent on time and content of last meal. Glucose of more than 200 mg/dL in a nonstressed, ambulatory subject supports the diagnosis of Diabetes Mellitus. Performed By: #### B MP, MG, FE and TIBC, AFSANEH, CBC #### [address] Iron [Mass/volume] in Serum or PlasmaOrdered By: Gina Poole on 11-19-2022 Iron [Mass/Vol] 28 ug/dL 50-212 [facility] Iron and TIBC Profileon 11-01 0-2022 % Iron Saturation 11.8 % Low 20-50 [facility] Comment on above: Performed By: #### B MP, MG, FE and TIBC, AFSANEH, CBC #### [address] Iron [Mass/Vol] 28 ug/dL Low 50-212 [facility] Comment on above: Performed By: #### B MP, MG, FE and TIBC, AFSANEH, CBC #### [address] Total Iron Binding Capacity 238 ug/dL Low 255-450 [facility] Comment on above: Performed By: #### B MP, MG, FE and TIBC, AFSANEH, CBC #### [facility] [address] [place] [id number] [place] Transferrin [Mass/Vol] 170 mg/dL Low 203-362 [facility] Comment on above: Performed By: #### B MP, MG, FE and TIBC, AFSANEH, CBC #### [facility] [address] [place] [id number] [facility] Iron binding capacity [Mass/ volume] in Serum or PlasmaOrdered By: Gina Poole on 11-19-2022 Iron binding capacity [Mass/Vol] 238 ug/dL 255-450 [facility] Iron saturation [Mass Fracti on] in Serum or PlasmaOrdered By: Gina Poole on 11-19-2022 Iron saturation [Mass fraction] 11.8 % 20-50 [facility] Magnesiumon 11-19-2022 Magnesium [Mass/Vol] 1.5 mg/dL Low 1.9-2.7 [facility] Comment on above: Performed By: #### B MP, MG, FE and TIBC, AFSANEH, CBC #### [facility] [address] [place] [id number] [facility] Magnesium [Mass/volume] in S arti or PlasmaOrdered By: Gina Poole on 11-19-2022 Magnesium [Mass/Vol] 1.5 mg/dL 1.9-2.7 [facility] No Panel InformationOrdered By: Gina Poole on 11-19-2022 Bedside Glucose Comment Glu2: cleaned meter [facility] Transferrin [Mass/volume] in Serum or PlasmaOrdered By: Gina Poole on 11-19-2022 Transferrin [Mass/Vol] 170 mg/dL -362 [facility] Troponin I High Sensitivityo n 11-19-2022 Troponin I High Sensitivity 19.6 pg/mL High 0.0-15.0 [facility] Comment on above: Order Comment: ultra sound come back in 10 mins Result Comment: PERF ORMED BY: [place] [address] PATHOLOGIST MILK RUNNER KOBE VENCES M.D. Performed By: #### B MP, MG, FE and TIBC, AFSANEH, CBC #### [facility] [address] [place] [address] [place] Troponin I High Sensitivity 17.3 pg/mL High 0.0-15.0 [facility] Comment on above: Result Comment: PERF ORMED BY: [facility] [address] [place] [address] PATHOLOGIST MILK RUNNER KOBE VENCES M.D. Performed By: #### B MP, MG, FE and TIBC, AFSANEH, CBC #### [facility] [address] Troponin I.cardiac [Mass/vol ume] in Serum or Plasma by Detection limit <= 0.01 ng/Ordered By: Gina Poole on 11-19-2022 Troponin I.cardiac DL <= 0.01 ng/mL [Mass/Vol] 19.6 pg/mL 0.0-15.0 [facility] Activated partial thrombopla stin time (aPTT) in platelet poor plasma by coagulation aOrdered By: Venkatesh Trammell on 11-18-2022 aPTT Coag (PPP) [Time] 35.1 s 25.1-36.5 [facility] Alanine aminotransferase [En zymatic activity/volume] in Serum or PlasmaOrdered By: Venkatesh Trammell on 11-18-2022 ALT [Catalytic activity/Vol] 10 U/L 7-52 [facility] Albumin [Mass/volume] in Ser um or Plasma by Bromocresol green (BCG) dye binding methoOrdered By: Venkatesh Trammell on 11-18-2022 Albumin BCG dye [Mass/Vol] 3.4 g/dL 3.5-5.7 [facility] Alkaline phosphatase [Enzyma tic activity/volume] in Serum or PlasmaOrdered By: Venkatesh Trammell on 11-18-2022 ALP [Catalytic activity/Vol] 54 U/L 34-104 [facility] Aspartate aminotransferase [ Enzymatic activity/volume] in Serum or PlasmaOrdered By: Venkatesh Trammell on 11-18-2022 AST [Catalytic activity/Vol] 15 U/L 13-39 [facility] B-Type Natriuretic Peptideon 11-18-2022 Natriuretic peptide B (Bld) [Mass/Vol] 2080.0 pg/mL High 5-100 [facility] Comment on above: Result Comment: PERF ORMED BY: [place] [address] PATHOLOGIST MILK RUNNER KOBE VENCES M.D. Performed By: #### B MP, MG, FE and TIBC, AFSANEH, CBC #### [facility] [address] Basic Metabolic Panelon 07- Anion gap [Moles/Vol] 10.0 mmol/L Normal 6.0-15.0 [facility] Comment on above: Performed By: #### B MP, MG, FE and TIBC, AFSANEH, CBC #### [facility] [address] Calcium [Mass/Vol] 8.1 mg/dL Low 8.6-10.3 [facility] Comment on above: Performed By: #### B MP, MG, FE and TIBC, AFSANEH, CBC #### [facility] [address] Chloride [Moles/Vol] 101 mmol/L Normal 98-107 [facility] Comment on above: Performed By: #### B MP, MG, FE and TIBC, AFSANEH, CBC #### [address] CO2 [Moles/Vol] 36.2 mmol/L High 21.0-31.0 [facility] Comment on above: Performed By: #### B MP, MG, FE and TIBC, AFSANEH, CBC #### [facility] [address] Creatinine [Mass/Vol] 1.78 mg/dL High 0.60-1.20 [facility] Comment on above: Performed By: #### B MP, MG, FE and TIBC, AFSANEH, CBC #### [facility] [address] Creatinine Clr Calc Pharmacy 25.51 Normal [facility] Comment on above: Result Comment: PERF ORMED BY: [place] [address] PATHOLOGIST MILK RUNNER KOBE VENCES M.D. Performed By: #### B MP, MG, FE and TIBC, AFSANEH, CBC #### [address] GFR/1.73 sq M.predicted MDRD (S/P/Bld) [Vol rate/Area] 29.779 mL/min/{1.73_m2} Normal [facility] Comment on above: Performed By: #### B MP, MG, FE and TIBC, AFSANEH, CBC #### [address] Glucose [Mass/Vol] 101 mg/dL High 70-100 [facility] Comment on above: Result Comment: [facility] Glucose Reference Range is dependent on time and content of last meal. Glucose of more than 200 mg/dL in a nonstressed, ambulatory subject supports the diagnosis of Diabetes Mellitus. ADA recommended reference range Performed By: #### B MP, MG, FE and TIBC, AFSANEH, CBC #### [address] Potassium [Moles/Vol] 5.2 mmol/L High 3.5-5.1 [facility] Comment on above: Performed By: #### B MP, MG, FE and TIBC, AFSANEH, CBC #### [address] Sodium [Moles/Vol] 142 mmol/L Normal 136-145 [facility] Comment on above: Performed By: #### B MP, MG, FE and TIBC, AFSANEH, CBC #### [place] [address] [place] Urea nitrogen [Mass/Vol] 29 mg/dL High 7-25 [facility] Comment on above: Performed By: #### B MP, MG, FE and TIBC, AFSANEH, CBC #### [facility] [address] [place] [address] [place] Basophils Auto (Bld) [#/Vol] Ordered By: Venkatesh Trammell on 11-18-2022 Basophils (Bld) [#/Vol] 0.0 10*3/uL 0.0-0.2 [facility] Basophils/100 WBC Auto (Bld) Ordered By: Venkatesh Trammell on 11-18-2022 Basophils/100 WBC (Bld) 0.7 % . [facility] Bilirubin.direct [Mass/volum e] in Serum or PlasmaOrdered By: Venkatesh Trammell on 11-18-2022 Bilirubin.direct [Mass/Vol] 0.10 mg/dL 0.03-0.18 [facility] Bilirubin.total [Mass/volume ] in Serum or PlasmaOrdered By: Venkatesh Trammell on 11-18-2022 Bilirubin [Mass/Vol] 0.4 mg/dL 0.3-1.0 [facility] Calcium [Mass/volume] in Ser um or PlasmaOrdered By: Venkatesh Trammell on 11-18-2022 Calcium [Mass/Vol] 8.1 mg/dL 8.6-10.3 [facility] Carbon dioxide, total [Moles /volume] in Serum or PlasmaOrdered By: Venkatesh Trammell on 11-18-2022 CO2 [Moles/Vol] 36.2 mmol/L 21.0-31.0 [facility] Chloride [Moles/volume] in S arti or PlasmaOrdered By: Venkatesh Trammell on 11-18-2022 Chloride [Moles/Vol] 101 mmol/L 98-107 [facility] Complete Blood Count Auto Di ffon 11-18-2022 Basophils (Bld) [#/Vol] 0.0 10*3/uL Normal 0.0-0.2 [facility] Comment on above: Result Comment: PERF ORMED BY: [facility] [address] [place] [address] PATHOLOGIST MILK RUNNER KOBE VENCES M.D. Performed By: #### B MP, MG, FE and TIBC, AFSANEH, CBC #### [facility] [address] Basophils/100 WBC (Bld) 0.7 % Normal . [facility] Comment on above: Performed By: #### B MP, MG, FE and TIBC, AFSANEH, CBC #### [address] Eosinophils (Bld) [#/Vol] 0.1 10*3/uL Normal 0.0-0.45 [facility] Comment on above: Performed By: #### B MP, MG, FE and TIBC, AFSANEH, CBC #### [address] Eosinophils/100 WBC (Bld) 1.7 % Normal . [facility] Comment on above: Performed By: #### B MP, MG, FE and TIBC, AFSANEH, CBC #### [address] Erythrocyte distribution width (RBC) [Ratio] 15.2 % Normal 11.9-15.3 [facility] Comment on above: Performed By: #### B MP, MG, FE and TIBC, AFSANEH, CBC #### [address] Hematocrit (Bld) [Volume fraction] 26.8 % Low 34.0-46.4 [facility] Comment on above: Performed By: #### B MP, MG, FE and TIBC, AFSANEH, CBC #### [address] Hemoglobin (Bld) [Mass/Vol] 8.7 g/dL Low 11.8-15.4 [facility] Comment on above: Performed By: #### B MP, MG, FE and TIBC, AFSANEH, CBC #### [address] Lymphocytes (Bld) [#/Vol] 1.5 10*3/uL Normal 1.00-4.8 [facility] Comment on above: Performed By: #### B MP, MG, FE and TIBC, AFSANEH, CBC #### [address] Lymphocytes/100 WBC (Bld) 22.5 % Normal . [facility] Comment on above: Performed By: #### B MP, MG, FE and TIBC, AFSANEH, CBC #### [address] MCH (RBC) [Entitic mass] 29.1 pg Normal 24.7-34.3 [facility] Comment on above: Performed By: #### B MP, MG, FE and TIBC, AFSANEH, CBC #### [address] MCV (RBC) [Entitic vol] 89.8 fL Normal 80-100 [facility] Comment on above: Performed By: #### B MP, MG, FE and TIBC, AFSANEH, CBC #### [address] Mean Corpuscular HGB Conc 32.4 g/dL Normal 32.0-35.0 [facility] Comment on above: Performed By: #### B MP, MG, FE and TIBC, AFSANEH, CBC #### [address] Monocytes (Bld) [#/Vol] 0.4 10*3/uL Normal 0.0-0.8 [facility] Comment on above: Performed By: #### B MP, MG, FE and TIBC, AFSANEH, CBC #### [address] Monocytes/100 WBC (Bld) 16.05 % Normal 0.00-20.00 [facility] Comment on above: Performed By: #### B MP, MG, FE and TIBC, AFSANEH, CBC #### [address] Monocytes/100 WBC (Bld) 5.7 % Normal . [facility] Comment on above: Performed By: #### B MP, MG, FE and TIBC, AFSANEH, CBC #### [address] Neutrophils (Bld) [#/Vol] 4.7 10*3/uL Normal 1.8-7.7 [facility] Comment on above: Performed By: #### B MP, MG, FE and TIBC, AFSANEH, CBC #### [address] Neutrophils/100 WBC (Bld) 69.4 % Normal . [facility] Comment on above: Performed By: #### B MP, MG, FE and TIBC, AFSANEH, CBC #### [address] NRBC% 0.0 /100{WBC} Normal 0-0.5 [facility] Comment on above: Performed By: #### B MP, MG, FE and TIBC, AFSANEH, CBC #### [address] Platelet mean volume (Bld) [Entitic vol] 8.2 fL Normal 6.3-10.7 [facility] Comment on above: Performed By: #### B MP, MG, FE and TIBC, AFSANEH, CBC #### [address] Platelets (Bld) [#/Vol] 169 10*3/uL Normal 150-450 [facility] Comment on above: Performed By: #### B MP, MG, FE and TIBC, AFSANEH, CBC #### [address] RBC (Bld) [#/Vol] 2.98 10*6/uL Low 3.60-5.00 [facility] Comment on above: Performed By: #### B MP, MG, FE and TIBC, AFSANEH, CBC #### [address] WBC (Bld) [#/Vol] 6.8 10*3/uL Normal 3.8-11.6 [facility] Comment on above: Performed By: #### B MP, MG, FE and TIBC, AFSANEH, CBC #### [address] Creatine Kinaseon 11-18-2022 CK [Catalytic activity/Vol] 44 U/L Normal 30-223 [facility] Comment on above: Performed By: #### B MP, MG, FE and TIBC, AFSANEH, CBC #### [facility] [address] [place] [address] [place] CK [Catalytic activity/Vol] 46 U/L Normal [facility] Comment on above: Performed By: #### B MP, MG, FE and TIBC, AFSANEH, CBC #### [facility] [address] [place] [address] [place] Creatine kinase [Enzymatic a ctivity/volume] in Serum or PlasmaOrdered By: Gina Poole on 11-18-2022 CK [Catalytic activity/Vol] 44 U/L [facility] Creatinine [Mass/volume] in Serum or PlasmaOrdered By: Venkatesh Trammell on 11-18-2022 Creatinine [Mass/Vol] 1.78 mg/dL 0.60-1.20 [facility] ECG 12 lead ECGon 11-18-2022 ECG 12 lead ECG [facility] Main [place] [address] [place] [address] Electrocardiograph Report Signed Patient: Martin Hagen MR#: [id number] 52 : 1950 Acct:[id number] Age/Sex: 71 / F ADM Date: 11/18/22 Loc: Room: [address] [place] [address] Type: ADM IN Attending Dr: Gina Poole [...] ECGs available Confirmed by Venkatesh Trammell DO ([id number]) on 11/19/2022 12:36:06 AM Referred By: Electronically Signed By:Venkatesh Trammell DO Transcribed By: MUS Signed By Venkatesh Trammell DO 3 0036 Normal [facility] Eosinophils Auto (Bld) [#/Vo l]Ordered By: Venkatesh Trammell on 11-18-2022 Eosinophils (Bld) [#/Vol] 0.1 10*3/uL 0.0-0.45 [facility] Eosinophils/100 WBC Auto (Bl d)Ordered By: Venkatesh Trammell on 11-18-2022 Eosinophils/100 WBC (Bld) 1.7 % . [facility] Erythrocyte distribution wid th Auto (RBC) [Ratio]Ordered By: Venkatesh Trammell on 11-18-2022 Erythrocyte distribution width (RBC) [Ratio] 15.2 % 11.9-15.3 [facility] Globulin Calc (S) [Mass/Vol] Ordered By: Venkatesh Trammell on 11-18-2022 Globulin (S) [Mass/Vol] 3.2 g/dL [facility] Glucose [Mass/volume] in Ser um or PlasmaOrdered By: Venkatesh Trammell on 11-18-2022 Glucose [Mass/Vol] 101 mg/dL 70-100 [facility] Comment on above: ADA recommended refe rence rangeRandom Glucose Reference Range is dependent on time and content of last meal. Glucose of more than 200 mg/dL in a nonstressed, ambulatory subject supports the diagnosis of Diabetes Mellitus. Hematocrit Auto (Bld) [Volum e fraction]Ordered By: Venkatesh Trammell on 11-18-2022 Hematocrit (Bld) [Volume fraction] 26.8 % 34.0-46.4 [facility] Hemoglobin [Mass/volume] in BloodOrdered By: Venkatesh Trammell on 11-18-2022 Hemoglobin (Bld) [Mass/Vol] 8.7 g/dL 11.8-15.4 [facility] Hepatic Panelon 11-18-2022 Albumin [Mass/Vol] 3.4 g/dL Low 3.5-5.7 [facility] Comment on above: Performed By: #### H EPATIC #### [facility] [address] [place] [id number] [facility] Albumin/Globulin [Mass ratio] 1.1 {ratio} Normal [facility] Comment on above: Performed By: #### H EPATIC #### [facility] [address] [place] [address] ALP [Catalytic activity/Vol] 54 U/L Normal 34-104 [facility] Comment on above: Result Comment: PERF ORMED BY: [place] [address] PATHOLOGIST MILK RUNNER KOBE VENCES M.D. Performed By: #### H EPATIC #### [address] ALT [Catalytic activity/Vol] 10 U/L Normal 7-52 [facility] Comment on above: Performed By: #### H EPATIC #### [address] AST [Catalytic activity/Vol] 15 U/L Normal 13-39 [facility] Comment on above: Performed By: #### H EPATIC #### [address] Bilirubin [Mass/Vol] 0.4 mg/dL Normal 0.3-1.0 [facility] Comment on above: Performed By: #### H EPATIC #### [address] Bilirubin,Indirect 0.3 mg/dL Normal [facility] Comment on above: Performed By: #### H EPATIC #### [address] Bilirubin.indirect [Mass/Vol] 0.10 mg/dL Normal 0.03-0.18 [facility] Comment on above: Performed By: #### H EPATIC #### [address] Globulin (S) [Mass/Vol] 3.2 g/dL Normal [facility] Comment on above: Performed By: #### H EPATIC #### [address] Protein [Mass/Vol] 6.6 g/dL Normal 6.4-8.9 [facility] Comment on above: Performed By: #### H EPATIC #### [address] [place] [address] [facility] Laboratory - CoagulationOrde red By: Venkatesh Trammell on 11-18-2022 PT Coag (PPP) [Time] 17.6 s 9.0-12.9 [facility] Leukocytes [#/volume] correc loan for nucleated erythrocytes in Blood by Automated counOrdered By: Venkatesh Trammell on 11-18-2022 WBC corrected for nucl RBC Auto (Bld) [#/Vol] 6.8 10*3/uL 3.8-11.6 [facility] Lymphocytes Auto (Bld) [#/Vo l]Ordered By: Venkatesh Trammell on 11-18-2022 Lymphocytes (Bld) [#/Vol] 1.5 10*3/uL 1.00-4.8 [facility] Lymphocytes/100 WBC Auto (Bl d)Ordered By: Venkatesh Trammell on 11-18-2022 Lymphocytes/100 WBC (Bld) 22.5 % . [facility] MCH Auto (RBC) [Entitic mass ]Ordered By: Venkatesh Trammell on 11-18-2022 MCH (RBC) [Entitic mass] 29.1 pg 24.7-34.3 [facility] MCHC Auto (RBC) [Mass/Vol]Or dered By: Venkatesh Trammell on 11-18-2022 MCHC (RBC) [Mass/Vol] 32.4 g/dL 32.0-35.0 [facility] MCV Auto (RBC) [Entitic vol] Ordered By: Venkatesh Trammell on 11-18-2022 MCV (RBC) [Entitic vol] 89.8 fL 80-100 [facility] Monocyte distribution width [Entitic volume] in Blood by AutomatedOrdered By: Venkatesh Trammell on 11-18-2022 Monocyte distribution width Auto (Bld) [Entitic vol] 16.05 % 0.00-20.00 [facility] Monocytes Auto (Bld) [#/Vol] Ordered By: Venkatesh Trammell on 11-18-2022 Monocytes (Bld) [#/Vol] 0.4 10*3/uL 0.0-0.8 [facility] Monocytes/100 WBC Auto (Bld) Ordered By: Venkatesh Trammell on 11-18-2022 Monocytes/100 WBC (Bld) 5.7 % . [facility] Natriuretic peptide B [Mass/ Vol]Ordered By: Venkatesh Trammell on 11-18-2022 Natriuretic peptide B (Bld) [Mass/Vol] 2080.0 pg/mL 5-100 [facility] Neutrophils Auto (Bld) [#/Vo l]Ordered By: Venkatesh Trammell on 11-18-2022 Neutrophils (Bld) [#/Vol] 4.7 10*3/uL 1.8-7.7 [facility] Neutrophils/100 WBC Auto (Bl d)Ordered By: Venkatesh Trammell on 11-18-2022 Neutrophils/100 WBC (Bld) 69.4 % . [facility] No Panel InformationOrdered By: Venkatesh Trammell on 11-18-2022 Estimated GFR (CKD-EPI) 29.779 mL/Min [facility] Creatinine Clearance (Chem 25.51 [facility] Nucleated erythrocytes [Pres ence] in Blood by Automated countOrdered By: Venkatesh Trammell on 11-18-2022 Nucleated RBC Auto Ql (Bld) 0.0 /100{WBC} 0-0.5 [facility] Partial Thromboplastin Timeo n 11-18-2022 aPTT Coag (Bld) [Time] 35.1 s Normal 25.1-36.5 [facility] Comment on above: Result Comment: PERF ORMED BY: [place] [address] PATHOLOGIST MILK RUNNER KOBE VENCES M.D. Performed By: #### B MP, MG, FE and TIBC, AFSANEH, CBC #### [address] Platelet mean volume Auto (B ld) [Entitic vol]Ordered By: Venkatesh Trammell on 11-18-2022 Platelet mean volume (Bld) [Entitic vol] 8.2 fL 6.3-10.7 [facility] Platelet poor plasma interna tional normalized ratio (INR) by coagulation assay (relatOrdered By: Venkatesh Trammell on 11-18-2022 INR Coag (PPP) [Relative time] 1.5 {INR} [facility] Comment on above: INR Therapeutic Rang e [...] 11-18-2022 Platelets (Bld) [#/Vol] 169 10*3/uL 150-450 [facility] Potassium [Moles/volume] in Serum or PlasmaOrdered By: Venkatesh Trammell on 11-18-2022 Potassium [Moles/Vol] 5.2 mmol/L 3.5-5.1 [facility] Protein [Mass/volume] in Ser um or PlasmaOrdered By: Venkatesh Trammell on 11-18-2022 Protein [Mass/Vol] 6.6 g/dL 6.4-8.9 [facility] Prothrombin Time INRon 11-18 INR Coag (PPP) [Relative time] 1.5 {INR} Normal [facility] Comment on above: Result Comment: INR Therapeutic [...] MG, FE and TIBC, AFSANEH, CBC #### [facility] [address] [place] [address] [place] PT Coag (PPP) [Time] 17.6 s High 9.0-12.9 [facility] Comment on above: Performed By: #### B MP, MG, FE and TIBC, AFSANEH, CBC #### [facility] [address] [place] [address] [place] RBC Auto (Bld) [#/Vol]Ordere d By: Venkatesh Trammell on 11-18-2022 RBC (Bld) [#/Vol] 2.98 10*6/uL 3.60-5.00 [facility] Serum or plasma albumin/glob ulin mass ratioOrdered By: Venkatesh Trammell on 11-18-2022 Albumin/Globulin [Mass ratio] 1.1 {ratio} [facility] Serum or plasma anion gap de terminationOrdered By: Venkatesh Trammell on 11-18-2022 Anion gap [Moles/Vol] 10.0 mmol/L 6.0-15.0 [facility] Serum or plasma non-glucuron idated bilirubin measurement (mass/volume)Ordered By: Venkatesh Trammell on 11-18-2022 Bilirubin.indirect [Mass/Vol] 0.3 mg/dL [facility] Sodium [Moles/volume] in Ser um or PlasmaOrdered By: Venkatesh Trammell on 11-18-2022 Sodium [Moles/Vol] 142 mmol/L 136-145 [facility] Troponin I High Sensitivityo n 11-18-2022 Troponin I High Sensitivity 18.4 pg/mL High 0.0-15.0 [facility] Comment on above: Result Comment: PERF ORMED BY: [place] [address] PATHOLOGIST MILK RUNNER KOBE VENCES M.D. Performed By: #### B MP, MG, FE and TIBC, AFSANEH, CBC #### [facility] [address] [place] [address] [place] Troponin I High Sensitivity 18.0 pg/mL High 0.0-15.0 [facility] Comment on above: Result Comment: PERF ORMED BY: [facility] [address] [place] [address] PATHOLOGIST MILK RUNNER KOBE VENCES M.D. Performed By: #### B MP, MG, FE and TIBC, AFSANEH, CBC #### [facility] [address] [place] [address] [place] Troponin I.cardiac [Mass/vol ume] in Serum or Plasma by Detection limit <= 0.01 ng/Ordered By: Gina Poole on 11-18-2022 Troponin I.cardiac DL <= 0.01 ng/mL [Mass/Vol] 18.4 pg/mL 0.0-15.0 [facility] Urea nitrogen [Mass/volume] in Serum or PlasmaOrdered By: Venkatesh Trammell on 11-18-2022 Urea nitrogen [Mass/Vol] 29 mg/dL 7- [facility] WBC Auto (Bld) [#/Vol]Ordere d By: Venkatesh Trammell on 11-18-2022 WBC (Bld) [#/Vol] 6.8 10*3/uL 3.8-11.6 [facility] XR chest 1V portableon 11-18 XR chest 1V portable [facility] [place] [address] XRay Report Signed Patient: Martin Hagen MR#: [id number] 52 : 1950 Acct:[id number] Age/Sex: 71 / F ADM Date: 11/18/22 [...] EXCLUDED. Impression dictated by: Perez Ferreira Jr., D.O.11/18/2022 5:40 PM Dictation Location: [facility] Transcribed By: [facility] 11/18/221739 Dictated By: Perez Ferreira Jr, DO 11/18/221738 Signed By: 11/18/221739 Normal [facility] 36on 10-30-2022 36 Milena from [facility] called to make you aware that patient has gained 5lbs since the Bumex increase on 10/27. She said her lungs are clear and diminished. She is not coughing and she is not edematous. Did you want to make any other changes? Please advise. Thanks. Normal [facility] Telephoneon 10-30-2022 Telephone [id number] Maria G Hagen 1950 F Date Provider Department Center 10/30/2022 [facility] Family History Problem Relation Age of Onset Stroke Mother Hypertension Mother Heart attack Father Hypertension Sister Heart attack Sister Heart attack Brother Family Status - Relation Status Age at Mother Father Sister Brother [facility] Office Visiton 10-27-2022 Follow-up visit [id number] Maria G Hagen 1950 F Date Provider Department Center 10/27/2022 [facility] Family History Problem Relation Age of Onset Stroke Mother Hypertension Mother Heart attack Father Hypertension Sister Heart attack Sister Heart attack Brother Family Status - Relation Status Age at Mother Father Sister Brother Level of Service:92460 DC OFFICE/OUTPATIENT ESTABLISHED MOD MDM 30-39 MIN [facility] Office Visiton 09-22-2022 Follow-up visit [id number] Maria G Hagen 1950 F Date Provider Department Center 09/22/2022 [facility] Family History Problem Relation Age of Onset Stroke Mother Hypertension Mother Heart attack Father Hypertension Sister Heart attack Sister Heart attack Brother Family Status - Relation Status Age at Mother Father Sister Brother Level of Service:24318 DC OFFICE/OUTPATIENT ESTABLISHED LOW MDM 20-29 MIN Reason for Visit and Comments: Follow-up [166175] - Event monitor follow up [facility] BNPon 09-08-2022 Natriuretic peptide B (Bld) [Mass/Vol] 88643.0 pg/mL Critically high <=900.0 [facility] Comment on above: Performed By: #### C MP, BNP ####[facility] [address] [place] [address]DrJesse Hernandez CBC AUTO DIFFon 09-08-2022 BASO # 0.0 103/ul Normal 0.0-0.1 [facility] Comment on above: Performed By: #### C BC ####[facility] [address] [place] [id number]. Ivette Hernandez Basophils/100 WBC (Bld) 0.0 % Critically low 0.2-2.0 [facility] Comment on above: Performed By: #### C BC ####[facility] [address] [place], [place] [address]Dr. Ivette Hernandez EO # 0.0 103/ul Normal 0.0-0.7 [facility] Comment on above: Performed By: #### C BC ####[facility] X[address] [place], [place] [address]Dr. Ivette Hernandez Eosinophils/100 WBC (Bld) 0.0 % Critically low 0.9-7.0 [facility] Comment on above: Performed By: #### C BC ####[facility] Mcfvct[address]so[address] [place], [place] [address]Dr. Cherjun Hernandez Erythrocyte distribution width (RBC) [Ratio] 14.0 % Normal 11.0-15.0 [facility] Comment on above: Performed By: #### C BC ####[facility] Ghbmngbesg[address] [place], [place] [address]Dr. Ivette Hernandez Hematocrit (Bld) [Volume fraction] 26.0 % Critically low 36.0-48.0 [facility] Comment on above: Performed By: #### C BC ####[facility] Ghpaykgfbo[address] [place], [place] [address]Dr. Ivette Hernandez Hemoglobin (Bld) [Mass/Vol] 8.2 g/dL Critically low 12.0-16.0 [facility] Comment on above: Performed By: #### C BC ####[facility] [address] [place], [place] [address]Dr. Cherjun Hernandez IG # 0.06 10e3/ul Critically high 0.00-0.03 [facility] Comment on above: Performed By: #### C BC ####[facility] M[address] [place], [place] [address]Dr. Ivette Hernandez IG % 0.7 % Critically high 0.0-0.5 [facility] Comment on above: Performed By: #### C BC ####[facility] [address] [place] [phone]. Ivette Hernandez LYMPH # 0.7 103/ul Critically low 1.2-3.8 [facility] Comment on above: Performed By: #### C BC ####[facility] [address]dexs34[address] [place] [phone]. Ivette Hernandez Lymphocytes/100 WBC (Bld) 8.2 % Critically low 20.5-60.0 [facility] Comment on above: Performed By: #### C BC ####[facility] [address] [place] [address]Dr. Ivette Hernandez MANUAL DIFF REQ NO Normal [facility] Comment on above: Performed By: #### C BC ####[facility] [address] [place] [address]Dr. Ivette Hernandez MCH (RBC) [Entitic mass] 29.4 pg Normal 26.7-34.0 [facility] Comment on above: Performed By: #### C BC ####[facility] [address] [place] [phone]. Ivette Hernandez MCHC (RBC) [Mass/Vol] 31.5 g/dL Normal 29.9-35.2 [facility] Comment on above: Performed By: #### C BC ####[facility] [address]zulo[address] [place] [phone]. Ivette Hernandez MCV (RBC) [Entitic vol] 93.2 fL Normal 81.0-99.0 [facility] Comment on above: Performed By: #### C BC ####[facility] [address] [place] [phone]. Ivette Hernandez MONO # 0.3 103/ul Normal 0.3-0.8 [facility] Comment on above: Performed By: #### C BC ####[facility] [address]xl[address]ru[address] [place] [phone]. Ivette Hernandez Monocytes/100 WBC (Bld) 3.5 % Normal 1.7-12.0 [facility] Comment on above: Performed By: #### C BC ####[facility] F[address]mszj[address] [place] [phone]. Ivette Hernandez NEUT # 7.6 103/ul Critically high 1.4-6.5 [facility] Comment on above: Performed By: #### C BC ####[facility] U[address]idwort[address] [place] [phone]. Ivette David Neutrophils/100 WBC (Bld) 87.6 % Critically high 43.0-75.0 [facility] Comment on above: Performed By: #### C BC ####[facility] [address]q40[address] [place] [phone]. Ivette David Platelet mean volume (Bld) [Entitic vol] 9.6 fL Normal 9.5-13.5 [facility] Comment on above: Performed By: #### C BC ####[facility] [address] [place] [address]Dr. Ivette David PLT 224 103/ul Normal 150-450 [facility] Comment on above: Performed By: #### C BC ####[facility] [address]jlf[address] [place] [phone]. Ivette Hernandez RBC 2.79 106/ul Critically low 4.20-5.40 [facility] Comment on above: Performed By: #### C BC ####[facility] [address]qrtewx27[address] [place] [phone]. Ivette David WBC 8.7 103/ul Normal 4.0-11.0 [facility] Comment on above: Performed By: #### C BC ####[facility] [address] [place] [phone] Hernandez PROF 14(COMP METB)on 023 Albumin [Mass/Vol] 2.5 g/dL Critically low 3.4-5.0 [facility] Comment on above: Performed By: #### C MP, BNP ####[facility] Y[address]ttli[address] [place] [phone]. Ivette Hernandez Albumin/Globulin [Mass ratio] 0.6 {ratio} Normal [facility] Comment on above: Performed By: #### C MP, BNP ####[facility] [address] [place] [address]Dr. Ivette Hernandez ALP [Catalytic activity/Vol] 66 U/L Normal 46-116 [facility] Comment on above: Performed By: #### C MP, BNP ####[facility] Tp[address]bfbxms8[address] [place] [address]Dr. Ivette Hernandez ALT [Catalytic activity/Vol] 20 U/L Normal 14-59 [facility] Comment on above: Performed By: #### C MP, BNP ####[facility] [address]etvwrat6[address] [place] [address]Dr. Ivette David Anion gap [Moles/Vol] 9.1 mmol/L Normal [facility] Comment on above: Performed By: #### C MP, BNP ####[facility] Oil[address]aiycl[address] [place], [place] [address]Dr. Ivette David AST [Catalytic activity/Vol] 11 U/L Critically low 15-37 [facility] Comment on above: Performed By: #### C MP, BNP ####[facility] Dmmxpmhtae[address] [place], [place] [address]Dr. Ivette David Bilirubin [Mass/Vol] 0.4 mg/dL Normal 0.2-1.0 [facility] Comment on above: Performed By: #### C MP, BNP ####[facility] Wtsxyvfwka[address] [place], [place] [address]Dr. Ivette David Calcium [Mass/Vol] 8.5 mg/dL Normal 8.5-10.1 [facility] Comment on above: Performed By: #### C MP, BNP ####[facility] Izq[address]lzxcs[address] [place] [address]Dr. Ivette Hernandez Chloride [Moles/Vol] 103 mmol/L Normal 98-107 [facility] Comment on above: Performed By: #### C MP, BNP ####[facility] C[address]ievbpbo57[address] [place] [address]Dr. Ivette Hernandez CO2 [Moles/Vol] 37.1 mmol/L Critically high 21.0-32.0 [facility] Comment on above: Performed By: #### C MP, BNP ####[facility] [address]zpt[address]ktte[address] [place], [place] [address]Dr. Ivette Hernandez Creatinine [Mass/Vol] 1.87 mg/dL Critically high 0.55-1.02 [facility] Comment on above: Performed By: #### C MP, BNP ####[facility] Zzwxhtjvgl[address] [place], [place] [address]Dr. Ivette Hernandez EGFR-AF MOSOTHO 32 mL/min/1.73m2 Critically low >=60 [facility] Comment on above: Performed By: #### C MP, BNP ####[facility] Rnksqflvxv[address] [place], [place] [address]Dr. Ivette Hernandez EGFR-NON AF MOSOTHO 26 mL/min/1.73m2 Critically low >=60 [facility] Comment on above: Performed By: #### C MP, BNP ####[facility] Wfkdrisqzh[address] [place], [place] [address]Dr. Ivette Hernandez Globulin (S) [Mass/Vol] 4.2 g/dL Normal [facility] Comment on above: Performed By: #### C MP, BNP ####[facility] Komzsmbftv[address] [place], [place] [address]Dr. Ivette Hernandez Glucose [Mass/Vol] 196 mg/dL Critically high 74-106 [facility] Comment on above: Performed By: #### C MP, BNP ####[facility] B[address]hihjrtd[address] [place], [place] [address]Dr. Ivette Hernandez Potassium [Moles/Vol] 4.2 mmol/L Normal 3.5-5.1 [facility] Comment on above: Performed By: #### C MP, BNP ####[facility] Jpwpieknjn[address] [place], [place] [address]Dr. Ivette Hernandez Protein [Mass/Vol] 6.7 g/dL Normal 6.4-8.2 [facility] Comment on above: Performed By: #### C MP, BNP ####[facility] E[address]xqssjex[address] [place], [place] [address]Dr. Ivette Hernandez Sodium [Moles/Vol] 145 mmol/L Normal 136-145 [facility] Comment on above: Performed By: #### C MP, BNP ####[facility] Pwglffjsce[address] [place], [place] [address]Dr. Ivette Hernandez Urea nitrogen [Mass/Vol] 45.0 mg/dL Critically high 7.0-18.0 [facility] Comment on above: Performed By: #### C MP, BNP ####[facility] Kvvdoabodx[address] [place], [place] [address]Dr. Ivette Hernandez Urea nitrogen/Creatinine [Mass ratio] 24.1 mg/mg Normal [facility] Comment on above: Performed By: #### C MP, BNP ####[facility] Qsyrkejogu[address] [place], [place] [address]Dr. Ivette Hernandez BNPon 09-07-2022 Natriuretic peptide B (Bld) [Mass/Vol] 12832.0 pg/mL Critically high <=900.0 [facility] Comment on above: Performed By: #### C MP, BNP ####[facility] B[address]jdpthfo[address] [place], [place] [address]Dr. Ivette David CBC AUTO DIFFon 09-07-2022 BASO # 0.0 103/ul Normal 0.0-0.1 [facility] Comment on above: Performed By: #### C BC ####[facility] Mrbuinefcv[address] [place], [place] [address]Dr. Ivette David Basophils/100 WBC (Bld) 0.1 % Critically low 0.2-2.0 [facility] Comment on above: Performed By: #### C BC ####[facility] Wfzdxgatra[address] [place], [place] [address]Dr. Ivette David EO # 0.0 103/ul Normal 0.0-0.7 [facility] Comment on above: Performed By: #### C BC ####[facility] Cwghrrmfbc[address] [place], [place] [address]Dr. Cherjun Hernandez Eosinophils/100 WBC (Bld) 0.0 % Critically low 0.9-7.0 [facility] Comment on above: Performed By: #### C BC ####[facility] [address]zqbtg[address] [place] [address]Dr. Ivette Hernandez Erythrocyte distribution width (RBC) [Ratio] 13.9 % Normal 11.0-15.0 [facility] Comment on above: Performed By: #### C BC ####[facility] Z[address]afty[address] [place], [place] [address]Dr. Ivette Hernandez Hematocrit (Bld) [Volume fraction] 26.6 % Critically low 36.0-48.0 [facility] Comment on above: Performed By: #### C BC ####[facility] Jcqtyqpclk[address] [place], [place] [address]Dr. Ivette Hernandez Hemoglobin (Bld) [Mass/Vol] 8.3 g/dL Critically low 12.0-16.0 [facility] Comment on above: Performed By: #### C BC ####[facility] [address]fimz[address] [place], [place] [address]Dr. Ivette Hernandez IG # 0.07 10e3/ul Critically high 0.00-0.03 [facility] Comment on above: Performed By: #### C BC ####[facility] K[address]fol[address] [place], [place] [address]Dr. Ivette Hernandez IG % 0.8 % Critically high 0.0-0.5 [facility] Comment on above: Performed By: #### C BC ####[facility] Zfxmkdeqhv[address] [place], [place] [address]Dr. Ivette Hernandez LYMPH # 0.6 103/ul Critically low 1.2-3.8 [facility] Comment on above: Performed By: #### C BC ####[facility] [address]tz[address]wlxy[address] [place], [place] [address]Dr. Ivette Hernandez Lymphocytes/100 WBC (Bld) 7.2 % Critically low 20.5-60.0 [facility] Comment on above: Performed By: #### C BC ####[facility] [address]ce[address] [place], [place] [address]Dr. Ivette Hernandez MANUAL DIFF REQ NO Normal [facility] Comment on above: Performed By: #### C BC ####[facility] Z[address]vplltzz9583 [place] [phone]. Ivette Hernandez MCH (RBC) [Entitic mass] 29.5 pg Normal 26.7-34.0 [facility] Comment on above: Performed By: #### C BC ####[facility] Ak[address]azijb5[address] [place] [phone]. Ivette Hernandez MCHC (RBC) [Mass/Vol] 31.2 g/dL Normal 29.9-35.2 [facility] Comment on above: Performed By: #### C BC ####[facility] Tevmauxzwq84[address] [place] [address]Dr. Ivette David MCV (RBC) [Entitic vol] 94.7 fL Normal 81.0-99.0 [facility] Comment on above: Performed By: #### C BC ####[facility] Feamztqkus[address] [place], [place] [address]Dr. Cherjun Hernandez MONO # 0.6 103/ul Normal 0.3-0.8 [facility] Comment on above: Performed By: #### C BC ####[facility] R[address]woqgwot[address] [place], [place] [address]Dr. Cherjun Hernandez Monocytes/100 WBC (Bld) 6.8 % Normal 1.7-12.0 [facility] Comment on above: Performed By: #### C BC ####[facility] [address]imjdpf[address] [place], [place] [address]Dr. Ivette David NEUT # 7.4 103/ul Critically high 1.4-6.5 [facility] Comment on above: Performed By: #### C BC ####[facility] [address] [place], [place] [address]DrJesse Cherjun Hernandez Neutrophils/100 WBC (Bld) 85.1 % Critically high 43.0-75.0 [facility] Comment on above: Performed By: #### C BC ####[facility] Oefebxmkcu[address] [place], [place] [address]Dr. Cherjun Hernandez Platelet mean volume (Bld) [Entitic vol] 9.5 fL Normal 9.5-13.5 [facility] Comment on above: Performed By: #### C BC ####[facility] [address]rdonrezu[address] [place] [phone]. Ivette Hernandez PLT 227 103/ul Normal 150-450 [facility] Comment on above: Performed By: #### C BC ####[facility] Sckpekqocx0997 [place] [phone]. Ivette Hernandez RBC 2.81 106/ul Critically low 4.20-5.40 [facility] Comment on above: Performed By: #### C BC ####[facility] Qgoxnppnjt4213 [place] [phone]. Ivette Hernandez WBC 8.7 103/ul Normal 4.0-11.0 [facility] Comment on above: Performed By: #### C BC ####[facility] [address] [place], [place] [address]Dr. Ivette Hernadnez BASO # 0.0 103/ul Normal 0.0-0.1 [facility] Comment on above: Performed By: #### C BC ####[facility] N[address]jbzui8856 [place] [phone]. Ivette Hernandez Basophils/100 WBC (Bld) 0.0 % Critically low 0.2-2.0 [facility] Comment on above: Performed By: #### C BC ####[facility] Y[address]gygspoqr6362 [place] [phone]. Ivette Hernandez EO # 0.0 103/ul Normal 0.0-0.7 [facility] Comment on above: Performed By: #### C BC ####[facility] [address]obcrbfgzv1790 [place] [phone]. Ivette Hernandez Eosinophils/100 WBC (Bld) 0.0 % Critically low 0.9-7.0 [facility] Comment on above: Performed By: #### C BC ####[facility] [address]xp[address]uj[address] [place] [place] [id number]. Ivette Hernandez Erythrocyte distribution width (RBC) [Ratio] 13.1 % Normal 11.0-15.0 [facility] Comment on above: Performed By: #### C BC ####[facility] Ypcuxinioh4337 [place] [address]Dr. Ivette Hernandez Hematocrit (Bld) [Volume fraction] 25.9 % Critically low 36.0-48.0 [facility] Comment on above: Performed By: #### C BC ####[facility] Svtlddcded0359 [place] [address]DrJesse Ivette David Hemoglobin (Bld) [Mass/Vol] 8.0 g/dL Critically low 12.0-16.0 [facility] Comment on above: Performed By: #### C BC ####[facility] Otkxqxkxun[address] [place], [place] [address]DrJesse Hernandez IG # 0.06 10e3/ul Critically high 0.00-0.03 [facility] Comment on above: Performed By: #### C BC ####[facility] Zxntnwxbcb45[address] [place], [place] [address]DrJesse Hernandez IG % 1.1 % Critically high 0.0-0.5 [facility] Comment on above: Performed By: #### C BC ####[facility] Fdfpcjaqux854[address] [place], [place] [address]DrJesse Cherjun Hernandez LYMPH # 0.8 103/ul Critically low 1.2-3.8 [facility] Comment on above: Performed By: #### C BC ####[facility] Vosucpzqox117[address] [place], [place] [address]DrJesse Hernandez Lymphocytes/100 WBC (Bld) 14.8 % Critically low 20.5-60.0 [facility] Comment on above: Performed By: #### C BC ####[facility] Tkgqlgrngd407[address] [place], [place] [address]DrJesse Cherjun Hernandez MANUAL DIFF REQ NO Normal [facility] Comment on above: Performed By: #### C BC ####[facility] Jmpwuroxhx101[address] [place], [place] [address]DrJesse Hernandez MCH (RBC) [Entitic mass] 29.7 pg Normal 26.7-34.0 [facility] Comment on above: Performed By: #### C BC ####[facility] Alqaeojpgl7514 [place] [id number]. Ivette David MCHC (RBC) [Mass/Vol] 30.9 g/dL Normal 29.9-35.2 [facility] Comment on above: Performed By: #### C BC ####[facility] Bmyyrmutgo8141 [place] [phone] Hernandez MCV (RBC) [Entitic vol] 96.3 fL Normal 81.0-99.0 [facility] Comment on above: Performed By: #### C BC ####[facility] Ylqvjshbaf8935 [place] [address]DrJesse Hernandez MONO # 0.1 103/ul Critically low 0.3-0.8 [facility] Comment on above: Performed By: #### C BC ####[facility] Rnfbtujwyw4429 [place] [address]Dr. Ivette Hernandez Monocytes/100 WBC (Bld) 2.0 % Normal 1.7-12.0 [facility] Comment on above: Performed By: #### C BC ####[facility] Qyobbfxpxh3567[address] [place], [place] [address]Dr. Ivette Hernandez NEUT # 4.5 103/ul Normal 1.4-6.5 [facility] Comment on above: Performed By: #### C BC ####[facility] Mztpncpxqx555[address] [place], [place] [address]DrJesse Hernandez Neutrophils/100 WBC (Bld) 82.1 % Critically high 43.0-75.0 [facility] Comment on above: Performed By: #### C BC ####[facility] Ewyyeuiabp[address] [place], [place] [id number] Hernandez Platelet mean volume (Bld) [Entitic vol] 9.4 fL Critically low 9.5-13.5 [facility] Comment on above: Performed By: #### C BC ####[facility] Sgltikqmjs[address] [place], [place] [address]DrJesse Hernandez PLT 224 103/ul Normal 150-450 [facility] Comment on above: Performed By: #### C BC ####[facility] Zexnebaivx9717 [place] [address]Dr. Ivette Hernandez RBC 2.69 106/ul Critically low 4.20-5.40 [facility] Comment on above: Performed By: #### C BC ####[facility] Lmxovjocqz5804 [place] [address]Dr. Ivette Hernandez WBC 5.5 103/ul Normal 4.0-11.0 [facility] Comment on above: Performed By: #### C BC ####[facility] Fdvijkzuti9916 [place] [address]Dr. Ivette Hernandez CULTURE SPUTUMon 09-07-2022 CULTURE SPUTUM Isolate 1 Carolee albicans Moderate growth of Normal [facility] Comment on above: Performed By: #### S PUTCX ####[facility] Zsvtxegiwz76[address] [place], [place] [address]Dr. Ivette Hernandez ECHOCARDIO M/2D COMPLETEon 0 09-07-2022 ECHOCARDIO M/2D COMPLETE Normal [facility] PRBC LEUKOREDUCEDon 09-08-19 23 PRBC LEUKOREDUCED Normal [facility] Comment on above: Performed By: #### P RBC ####[facility] Qxymmgtjms832[address] [place], [place] [address]Dr. Ivette Hernandez PROF 14(COMP METB)on 023 Albumin [Mass/Vol] 2.4 g/dL Critically low 3.4-5.0 [facility] Comment on above: Performed By: #### C MP, BNP ####[facility] Rmxmvznovc9529[address] [place], [place] [address]Dr. Ivette Hernandez Albumin/Globulin [Mass ratio] 0.5 {ratio} Normal [facility] Comment on above: Performed By: #### C MP, BNP ####[facility] Ydkazyfnbq0422 [place] [address]Dr. Ivette Hernandez ALP [Catalytic activity/Vol] 75 U/L Normal 46-116 [facility] Comment on above: Performed By: #### C MP, BNP ####[facility] Hahpsqrxnh5640 [place] [address]Dr. Ivette Hernandez ALT [Catalytic activity/Vol] 17 U/L Normal 14-59 [facility] Comment on above: Performed By: #### C MP, BNP ####[facility] Klznewzbed59280[address] [place], [place] [address]Dr. Ivette Hernandez Anion gap [Moles/Vol] 11.3 mmol/L Normal Th [facility] Comment on above: Performed By: #### C MP, BNP ####[facility] Grxgeeqirc179[address] [place], [place] [address]Dr. Ivette Hernandez AST [Catalytic activity/Vol] 15 U/L Normal 15-37 [facility] Comment on above: Performed By: #### C MP, BNP ####[facility] Izltqardky297[address] [place], [place] [address]Dr. Ivette Hernandez Bilirubin [Mass/Vol] 0.3 mg/dL Normal 0.2-1.0 [facility] Comment on above: Performed By: #### C MP, BNP ####[facility] Shvkhmimyf907[address] [place], [place] [address]Dr. Ivette Hernandez Calcium [Mass/Vol] 7.9 mg/dL Critically low 8.5-10.1 [facility] Comment on above: Performed By: #### C MP, BNP ####[facility] Acvixnzdsq450[address] [place], [place] [address]Dr. Ivette Hernandez Chloride [Moles/Vol] 104 mmol/L Normal 98-107 [facility] Comment on above: Performed By: #### C MP, BNP ####[facility] Eczdyilkdj479[address] [place], [place] [address]Dr. Ivette Hernandez CO2 [Moles/Vol] 33.3 mmol/L Critically high 21.0-32.0 [facility] Comment on above: Performed By: #### C MP, BNP ####[facility] Acaxoyluwm7637[address] [place], [place] [address]Dr. Ivette Hernandez Creatinine [Mass/Vol] 1.68 mg/dL Critically high 0.55-1.02 [facility] Comment on above: Performed By: #### C MP, BNP ####[facility] Iortcijhnb1719 [place] [phone]. Ivette Hernandez EGFR-AF MOSOTHO 36 mL/min/1.73m2 Critically low >=60 [facility] Comment on above: Performed By: #### C MP, BNP ####[facility] Uwcbllhoxo2492 [place] [address]Dr. Ivette Hernandez EGFR-NON AF MOSOTHO 30 mL/min/1.73m2 Critically low >=60 [facility] Comment on above: Performed By: #### C MP, BNP ####[facility] Fwpaqbdtjs1287[address] [place], [place] [address]Dr. Ivette Hernandez Globulin (S) [Mass/Vol] 4.5 g/dL Normal [facility] Comment on above: Performed By: #### C MP, BNP ####[facility] Qisxrtdpch764[address] [place], [place] [address]Dr. Ivette Hernandez Glucose [Mass/Vol] 203 mg/dL Critically high 74-106 [facility] Comment on above: Performed By: #### C MP, BNP ####[facility] Gfutftrttp0527[address] [place], [place] [address]Dr. Ivette Hernandez Potassium [Moles/Vol] 4.6 mmol/L Normal 3.5-5.1 [facility] Comment on above: Performed By: #### C MP, BNP ####[facility] Hhixvvyqpk465[address] [place], [place] [address]Dr. Ivette Hernandez Protein [Mass/Vol] 6.9 g/dL Normal 6.4-8.2 [facility] Comment on above: Performed By: #### C MP, BNP ####[facility] Fktfkxbczs5517[address] [place], [place] [address]Dr. Ivette Hernandez Sodium [Moles/Vol] 144 mmol/L Normal 136-145 [facility] Comment on above: Performed By: #### C MP, BNP ####[facility] Fdwrqasjwd315[address] [place], [place] [address]Dr. Ivette Hernandez Urea nitrogen [Mass/Vol] 33.0 mg/dL Critically high 7.0-18.0 [facility] Comment on above: Performed By: #### C MP, BNP ####[facility] Oeeabzdprd8418 [place] [address]Dr. Cherjun David Urea nitrogen/Creatinine [Mass ratio] 19.6 mg/mg Normal [facility] Comment on above: Performed By: #### C MP, BNP ####[facility] Gpzuydvspc1993 [place] [address]Dr. Cherjun David SPUTUM GRAM STAINon 09-08-19 COMMENTS Normal [facility] Comment on above: Performed By: #### S PUTGS ####[facility] Oigqhdyjiw7569[address] [place], [place] [address]Dr. Ivette Hernandez DIPHTHEROIDS Normal [facility] Comment on above: Performed By: #### S PUTGS ####[facility] Kkogrltjob327[address] [place], [place] [address]Dr. Ivette Hernandez EPITHELIALS <25 Normal [facility] Comment on above: Performed By: #### S PUTGS ####[facility] Sdylkiccon886[address] [place], [place] [address]Dr. Ivette Hernandez FUNGAL ELEMENTS FEW Normal [facility] Comment on above: Performed By: #### S PUTGS ####[facility] Esxrhuxjls125[address] [place], [place] [address]Dr. Ivette Hernandez GRAM NEG BACILLI Normal [facility] Comment on above: Performed By: #### S PUTGS ####[facility] Covqsfxobj5325[address] [place], [place] [address]Dr. Ivette Hernandez GRAM NEG DIPPLOCOCCI Normal [facility] Comment on above: Performed By: #### S PUTGS ####[facility] Xkeqtzxaom635[address] [place], [place] [address]Dr. Ivette Hernandez GRAM POS BACILLI Normal [facility] Comment on above: Performed By: #### S PUTGS ####[facility] Peboqeaxbp[address]19[address] [place], [place] [address]Dr. Ivette Hernandez GRAM POSITIVE COCCI Normal [facility] Comment on above: Performed By: #### S PUTGS ####[facility] Jofuanbpmn758[address] [place], [place] [address]Dr. Ivette Hernandez WBC (Bld) [#/Vol] 10*3/uL Normal [facility] Comment on above: Performed By: #### S PUTGS ####[facility] Yzoyerxlzq5572 [place] [address]Dr. Ivette Hernandez TYPE AND SCREENon 09-07-2022 TYPE AND SCREEN Negative Normal [facility] Comment on above: Performed By: #### T NS ####[facility] Yapkdahvfh8645 [place] [address]Dr. Ivette Hernandez BNPon 09-06-2022 Natriuretic peptide B (Bld) [Mass/Vol] 09974.0 pg/mL Critically high <=900.0 [facility] Comment on above: Performed By: #### B CELL INSTALLER, HSTROPN, LIPA, CMP ####[facility] Igozwcravw4880 [place] [address]Dr. Ivette Hernandez CARDIAC CANDACE ADMITon 023 CK [Catalytic activity/Vol] 73 U/L Normal 26-192 [facility] Comment on above: Performed By: #### C MADM, MG ####[facility] Hmhxsjqxde3578 [place] [address]Dr. Ivette Hernandez CK.MB [Mass/Vol] 1.68 ng/mL Normal <=3.60 [facility] Comment on above: Performed By: #### C MADM, MG ####[facility] Fpopcyzsqe4981 [place] [address]Dr. Ivette Hernandez HSTROP 14.7 pg/mL Normal 4.0-51.3 [facility] Comment on above: Result Comment: CUT- OFF POINTS HAVE BEEN ESTABLISHED BASED ON THE FOURTH UNIVERSAL DEFINITIONS OF MYOCARDIALINFARCTION. THE UPPER REFERENCE LIMIT (URL) OF TROPONIN, DEFINED THE 99TH PERCENTILE OFcTnI DISTRIBUTION IN A REFERENCE POPULATION, HAS BEEN CONFIRMED THE DECISION THRESHOLDFOR NC DIAGNOSIS. Performed By: #### C MADM, MG ####[facility] Fuiunvmbak3076 [place] [address]Dr. Ivette Hernandez CARMITA 151 ng/mL Critically high 9-82 [facility] Comment on above: Performed By: #### C MADM, MG ####[facility] Mcfaeqtifs3691 [place] [id number]. Ivette Hernandez CBC AUTO DIFFon 09-06-2022 BASO # 0.0 103/ul Normal 0.0-0.1 [facility] Comment on above: Performed By: #### C BC ####[facility] Wggfoofvff3178 [place] [address]Dr. Ivette David Basophils/100 WBC (Bld) 0.4 % Normal 0.2-2.0 [facility] Comment on above: Performed By: #### C BC ####[facility] Mfvfhzwowf063[address] [place], [place] [address]Dr. Ivette David EO # 0.1 103/ul Normal 0.0-0.7 [facility] Comment on above: Performed By: #### C BC ####[facility] Mznibzauwm607[address] [place], [place] [address]Dr. Cherjun Hernandez Eosinophils/100 WBC (Bld) 1.5 % Normal 0.9-7.0 [facility] Comment on above: Performed By: #### C BC ####[facility] Uoflpdyyqa2097[address] [place], [place] [address]Dr. Ivette Hernandez Erythrocyte distribution width (RBC) [Ratio] 13.1 % Normal 11.0-15.0 [facility] Comment on above: Performed By: #### C BC ####[facility] Rtyzfqosra332[address] [place], [place] [address]Dr. Ivette Hernandez Hematocrit (Bld) [Volume fraction] 26.8 % Critically low 36.0-48.0 [facility] Comment on above: Performed By: #### C BC ####[facility] Abdxvtmcfr700[address] [place], [place] [address]Dr. Ivette Hernandez Hemoglobin (Bld) [Mass/Vol] 8.4 g/dL Critically low 12.0-16.0 [facility] Comment on above: Performed By: #### C BC ####[facility] Xewuvoxapf0001[address] [place], [place] [address]Dr. Ivette Hernandez IG # 0.05 10e3/ul Critically high 0.00-0.03 [facility] Comment on above: Performed By: #### C BC ####[facility] Ccjckvetuk6133 [place] [address]DrJesse Ivette Hernandez IG % 0.5 % Normal 0.0-0.5 [facility] Comment on above: Performed By: #### C BC ####[facility] Ryzvqxujoq7547[address] [place], [place] [address]DrJesse Ivette David LYMPH # 1.6 103/ul Normal 1.2-3.8 [facility] Comment on above: Performed By: #### C BC ####[facility] Zhgwzsefgr410[address] [place], [place] [address]DrJesse Ivette David Lymphocytes/100 WBC (Bld) 17.1 % Critically low 20.5-60.0 [facility] Comment on above: Performed By: #### C BC ####[facility] Gyltshbrby4[address] [place], [place] [address]DrJesse Cherjun Hernandez MANUAL DIFF REQ NO Normal [facility] Comment on above: Performed By: #### C BC ####[facility] Yvruoshjwz150[address] [place], [place] [address]DrJesse Ivette David MCH (RBC) [Entitic mass] 30.1 pg Normal 26.7-34.0 [facility] Comment on above: Performed By: #### C BC ####[facility] Somkbljprc894[address] [place], [place] [address]DrJesse Ivette David MCHC (RBC) [Mass/Vol] 31.3 g/dL Normal 29.9-35.2 [facility] Comment on above: Performed By: #### C BC ####[facility] Ognjxjfdjp064[address] [place], [place] [address]DrJesse Ivette David MCV (RBC) [Entitic vol] 96.1 fL Normal 81.0-99.0 [facility] Comment on above: Performed By: #### C BC ####[facility] Mbluhuhsrs558[address] [place], [place] [address]DrJesse Hernandez MONO # 0.5 103/ul Normal 0.3-0.8 [facility] Comment on above: Performed By: #### C BC ####[facility] Jxsuhkuzgo0524 [place] [address]Dr. Ivette Hernandez Monocytes/100 WBC (Bld) 5.3 % Normal 1.7-12.0 [facility] Comment on above: Performed By: #### C BC ####[facility] Bfbryeeoig7961 [place] [id number]. Ivette Hernandez NEUT # 7.0 103/ul Critically high 1.4-6.5 [facility] Comment on above: Performed By: #### C BC ####[facility] Vfbpyakogf2840 [place] [address]Dr. Ivette Hernandez Neutrophils/100 WBC (Bld) 75.2 % Critically high 43.0-75.0 [facility] Comment on above: Performed By: #### C BC ####[facility] Pzjhphiniu0225 [place] [address]Dr. Ivette Hernandez Platelet mean volume (Bld) [Entitic vol] 9.5 fL Normal 9.5-13.5 [facility] Comment on above: Performed By: #### C BC ####[facility] Lwwdrgohdv7444 [place] [address]Dr. Ivette Hernandez PLT 257 103/ul Normal 150-450 [facility] Comment on above: Performed By: #### C BC ####[facility] Slhgnfhvqe2100 [place] [address]Dr. Ivette Hernandez RBC 2.79 106/ul Critically low 4.20-5.40 [facility] Comment on above: Performed By: #### C BC ####[facility] Oplyaufapv0227 [place] [id number]. Ivette Hernandez WBC 9.3 103/ul Normal 4.0-11.0 [facility] Comment on above: Performed By: #### C BC ####[facility] Xsaxzsynxw3908 [place] [phone]. Ivette Hernandez CULTURE BLOODon 09-06-2022 Microscopic examination of blood, culture Culture Observations: NO GROWTH AT 5 DAYS. Normal [facility] Comment on above: Performed By: #### B LDCX2 ####[facility] Qfrhscdjfk0156 [place] [address]Dr. Ivette Hernandez Microscopic examination of blood, culture Culture Observations: NO GROWTH AT 5 DAYS. Normal [facility] Comment on above: Performed By: #### B LDCX1 ####[facility] Popxnwrifj8269 [place] [phone]. Ivette Hernandez CULTURE URINEon 09-06-2022 CULTURE URINE Culture Observations : LIGHT GROWTH OF MIXED GENITAL BOB. NO POTENTIAL PATHOGENS SEEN. Normal [facility] Comment on above: Performed By: #### U RCX ####[facility] Bcqbiccwjj[address] [place], [place] [address]Dr. Ivette Hernandez Covid-19 PCR (CVDTB)on SARS-CoV-2 (COVID-19) RNA MARRY+probe Ql (Unsp spec) Not detected Normal NOT DETECTED [facility] Comment on above: Result Comment: This test is not yet approved or cleared by the [place] FDA. When there are no FDA-approved or cleared tests available, and other criteria are met, FDA can make tests available under an emergency access mechanism called an Emergency Use Authorization (EUA). The EUA for this test is supported by the Security Orderly of Health and Human Service's (HHS's) declaration [...] with SARS-CoV-2. Performed By: #### C VDTBH ####[facility] Kpfruxhlik2609 [place] [id number]. Ivette Hernandez LACTATE/LACTIC ACIDon 2022 Lactate [Moles/Vol] 0.6 mmol/L Normal 0.4-2.0 [facility] Comment on above: Performed By: #### L ACT ####[facility] Xwngxzspgr0884 [place] [address]Dr. Ivette Hernandez Lactate [Moles/Vol] 0.8 mmol/L Normal 0.4-2.0 [facility] Comment on above: Performed By: #### L ACT ####[facility] Sajiolxwdr3107 [place] [address]Dr. Ivette Hernandez LIPASEon 09-06-2022 Lipase [Catalytic activity/Vol] 157.0 U/L Normal 73.0-393.0 [facility] Comment on above: Performed By: #### B CELL INSTALLER, HSTROPN, LIPA, CMP ####[facility] Tgxrfdbwtw156[address] [place], [place] [address]Dr. Ivette Hernandez MAGNESIUMon 09-06-2022 Magnesium [Mass/Vol] 1.6 mg/dL Critically low 1.8-2.4 [facility] Comment on above: Performed By: #### C MADM, MG ####[facility] Sjphcndrlu569[address] [place], [place] [address]Dr. Ivette Hernandez PROF 14(COMP METB)on 023 Albumin [Mass/Vol] 2.5 g/dL Critically low 3.4-5.0 [facility] Comment on above: Performed By: #### B CELL INSTALLER, HSTROPN, LIPA, CMP ####[facility] Xvnhnckwnc9[address] [place], [place] [address]Dr. Ivette Hernandez Albumin/Globulin [Mass ratio] 0.5 {ratio} Normal [facility] Comment on above: Performed By: #### B CELL INSTALLER, HSTROPN, LIPA, CMP ####[facility] Zthettolfb[address] [place], [place] [address]Dr. Ivette Hernandez ALP [Catalytic activity/Vol] 85 U/L Normal 46-116 [facility] Comment on above: Performed By: #### B CELL INSTALLER, HSTROPN, LIPA, CMP ####[facility] Fyvhaqsfup474[address] [place], [place] [address]Dr. Ivette Hernandez ALT [Catalytic activity/Vol] 18 U/L Normal 14-59 [facility] Comment on above: Performed By: #### B CELL INSTALLER, HSTROPN, LIPA, CMP ####[facility] Urxmayupdr5205 [place] [address]Dr. Ivette Hernandez Anion gap [Moles/Vol] 9.1 mmol/L Normal [facility] Comment on above: Performed By: #### B CELL INSTALLER, HSTROPN, LIPA, CMP ####[facility] Ljvaveupmj9231 [place] [address]Dr. Ivette Hernandez AST [Catalytic activity/Vol] 18 U/L Normal 15-37 [facility] Comment on above: Performed By: #### B CELL INSTALLER, HSTROPN, LIPA, CMP ####[facility] Wvtzftchfe4332 [place] [address]Dr. Ivette Hernandez Bilirubin [Mass/Vol] 0.5 mg/dL Normal 0.2-1.0 [facility] Comment on above: Performed By: #### B CELL INSTALLER, HSTROPN, LIPA, CMP ####[facility] Sbpzfuupfw5136 [place] [address]Dr. Ivette Hernandez Calcium [Mass/Vol] 7.8 mg/dL Critically low 8.5-10.1 Th [facility] Comment on above: Performed By: #### B CELL INSTALLER, HSTROPN, LIPA, CMP ####[facility] Fkmrtxarkd8277 [place] [address]Dr. Ivette Hernandez Chloride [Moles/Vol] 103 mmol/L Normal 98-107 [facility] Comment on above: Performed By: #### B CELL INSTALLER, HSTROPN, LIPA, CMP ####[facility] Qtwsyumaqh1011 [place] [address]Dr. Ivette Hernandez CO2 [Moles/Vol] 32.8 mmol/L Critically high 21.0-32.0 [facility] Comment on above: Performed By: #### B CELL INSTALLER, HSTROPN, LIPA, CMP ####[facility] Ecfxtjlykq187[address] [place], [place] [address]Dr. Ivette Hernandez Creatinine [Mass/Vol] 1.79 mg/dL Critically high 0.55-1.02 [facility] Comment on above: Performed By: #### B CELL INSTALLER, HSTROPN, LIPA, CMP ####[facility] Gcerkblaiq9695 [place] [address]Dr. Ivette Hernandez EGFR-AF MOSOTHO 34 mL/min/1.73m2 Critically low >=60 [facility] Comment on above: Performed By: #### B CELL INSTALLER, HSTROPN, LIPA, CMP ####[facility] Ymelmhkibw0491 [place] [address]Dr. Ivette Hernandez EGFR-NON AF MOSOTHO 28 mL/min/1.73m2 Critically low >=60 [facility] Comment on above: Performed By: #### B CELL INSTALLER, HSTROPN, LIPA, CMP ####[facility] Xqvgyrtuxm[address] [place], [place] [address]Dr. Ivette Hernandez Globulin (S) [Mass/Vol] 4.6 g/dL Normal [facility] Comment on above: Performed By: #### B CELL INSTALLER, HSTROPN, LIPA, CMP ####[facility] Rwsnopbvfa0055 [place] [address]Dr. Ivette Hernandez Glucose [Mass/Vol] 170 mg/dL Critically high 74-106 [facility] Comment on above: Performed By: #### B CELL INSTALLER, HSTROPN, LIPA, CMP ####[facility] Deieixugpa0[address] [place], [place] [address]Dr. Ivette Hernandez Potassium [Moles/Vol] 3.9 mmol/L Normal 3.5-5.1 [facility] Comment on above: Performed By: #### B CELL INSTALLER, HSTROPN, LIPA, CMP ####[facility] Gbvaoiyoou47[address] [place], [place] [address]Dr. Ivette Hernandez Protein [Mass/Vol] 7.1 g/dL Normal 6.4-8.2 [facility] Comment on above: Performed By: #### B CELL INSTALLER, HSTROPN, LIPA, CMP ####[facility] Ckolygkjex9906 [place] [address]Dr. Ivette Hernandez Sodium [Moles/Vol] 141 mmol/L Normal 136-145 [facility] Comment on above: Performed By: #### B CELL INSTALLER, JAX GARRIDO, CMP ####[facility] Zzhciyynyv5001 [place] [address]Dr. Ivette Hernandez Urea nitrogen [Mass/Vol] 31.0 mg/dL Critically high 7.0-18.0 [facility] Comment on above: Performed By: #### B CELL INSTALLER, RADHATROPSanjeev LIPA, CMP ####[facility] Agntyxsohc7260 [place] [address]Dr. Ivette Hernandez Urea nitrogen/Creatinine [Mass ratio] 17.3 mg/mg Normal [facility] Comment on above: Performed By: #### B CELL INSTALLER, SCOTTIE GARRIDOA, CMP ####[facility] Atrnoorhqb[address] [place], [place] [address]Dr. Ivette Hernandez PROTIMEon 09-06-2022 INR Coag (PPP) [Relative time] 1.13 {INR} Normal [facility] Comment on above: Performed By: #### P TT, PT ####[facility] Wrzabfjvlv[address] [place], [place] [address]Dr. Ivette Hernandez INR GUIDELINES SEE BELOW Normal [facility] Comment on above: Result Comment: MELANIE RED INR: 2.0 - 3.0 CONDITIONS NOT LISTED BELOW 2.5 - 3.5 FOR PROSTHETIC HEART VALVE REPLACEMENT 2.5 - 3.5 RECURRENT THROMBOSIS Performed By: #### P TT, PT ####[facility] [address] [place], [place] [address]Dr. Ivette Hernandez PT Coag (PPP) [Time] 11.9 s Critically high 9.0-11.6 [facility] Comment on above: Performed By: #### P TT, PT ####[facility] [address] [place], [place] [address]Dr. Ivette Hernandez PTTon 09-06-2022 aPTT Coag (Bld) [Time] 29.6 s Normal 22.3-36.2 [facility] Comment on above: Performed By: #### P TT, PT ####[facility] [address] [place] [id number]. Ivette Hernandez SYMPTOMATIC COVID-19 ANTIGEN on 09-06-2022 EUA Statement SEE BELOW Normal [facility] Comment on above: Result Comment: This [...] revoked sooner. Performed By: #### C VDAGS ####[facility] [address] [place] [phone]. Ivette Hernandez SARS-CoV-2 (COVID-19) RNA MARRY+probe Ql (Unsp spec) Negative Normal NEGATIVE [facility] Comment on above: Performed By: #### C VDAGS ####[facility] [address]jflhsfvm[address] [place] [phone]. Ivette Hernandez TROPONIN, HIGH SENSITIVITYon 09-06-2022 HSTROP 13.1 pg/mL Normal 4.0-51.3 [facility] Comment on above: Result Comment: CUT- OFF POINTS HAVE BEEN ESTABLISHED BASED ON THE FOURTH UNIVERSAL DEFINITIONS OF MYOCARDIALINFARCTION. THE UPPER REFERENCE LIMIT (URL) OF TROPONIN, DEFINED THE 99TH PERCENTILE OFcTnI DISTRIBUTION IN A REFERENCE POPULATION, HAS BEEN CONFIRMED THE DECISION THRESHOLDFOR NC DIAGNOSIS. Performed By: #### B CELL INSTALLER, HSTROPN, LIPA, CMP ####[facility] [address] [place] [phone]. Ivette Hernandez UA RANDOM W/MICROSCOPICon BACTERIA SMALL Abnormal NONE SEEN [facility] Comment on above: Performed By: #### U AMIC ####[facility] [address] [place], [place] [address]Dr. Cherjun David Bilirubin Ql (U) Negative Normal NEGATIVE [facility] Comment on above: Performed By: #### U AMIC ####[facility] [address] [place] [address]Dr. Ivette Hernandez CAST NONE SEEN Normal NONE SEEN [facility] Comment on above: Performed By: #### U AMIC ####[facility] J[address] [place], [place] [address]Dr. Ivette Hernandez Clarity (U) CLEAR Normal CLEAR [facility] Comment on above: Performed By: #### U AMIC ####[facility] [address] [place], [place] [address]Dr. Ivette Hernandez Color (U) LT. YELLOW Normal YELLOW [facility] Comment on above: Performed By: #### U AMIC ####[facility] O[address] [place], [place] [address]Dr. Ivette Hernandez Crystals LM Nom (Urine sed) NONE SEEN Normal NONE SEEN [facility] Comment on above: Performed By: #### U AMIC ####[facility] [address] [place], [place] [address]Dr. Ivette Hernandez Epithelial cells LM Ql (Urine sed) FEW Abnormal NONE SEEN /RARE [facility] Comment on above: Performed By: #### U AMIC ####[facility] R[address]ikcc[address]jf[address] [place], [place] [address]Dr. Ivette Hernandez Glucose Ql (U) Negative Normal NEGATIVE [facility] Comment on above: Performed By: #### U AMIC ####[facility] [address]qc[address] [place], [place] [address]Dr. Ivette Hernandez Hemoglobin Ql (U) SMALL Abnormal NEGATIVE [facility] Comment on above: Performed By: #### U AMIC ####[facility] Uct[address]fw[address] [place], [place] [address]Dr. Ivette Hernandez Ketones Ql (U) Negative Normal NEGATIVE [facility] Comment on above: Performed By: #### U AMIC ####[facility] [address] [place] [address]Dr. Ivette Hernandez LEUKOCYTES TRACE Abnormal NEGATIVE [facility] Comment on above: Performed By: #### U AMIC ####[facility] [address] [place] [address]Dr. Ivette Hernandez MUCOUS NONE SEEN Normal NONE SEEN [facility] Comment on above: Performed By: #### U AMIC ####[facility] Es[address] [place], [place] [address]Dr. Ivette Hernandez Nitrite Ql (U) Negative Normal NEGATIVE [facility] Comment on above: Performed By: #### U AMIC ####[facility] Ug[address] [place], [place] [address]Dr. Ivette Hernandez pH (U) 7.5 [pH] Normal 5-9 [facility] Comment on above: Performed By: #### U AMIC ####[facility] [address]iq[address] [place], [place] [address]Dr. Ivette Hernandez RBC 0-2 Normal 0-2 [facility] Comment on above: Performed By: #### U AMIC ####[facility] V[address] [place], [place] [address]Dr. Ivette David SPEC GRAVITY 1.020 Normal 1.005-<=1.025 [facility] Comment on above: Performed By: #### U AMIC ####[facility] [address] [place], [place] [address]Dr. Ivette Hernandez UA PROTEIN 300 mg/dl Abnormal NEGATIVE/ TRACE [facility] Comment on above: Performed By: #### U AMIC ####[facility] H[address] [place], [place] [address]Dr. Ivette Hernandez Urobilinogen Qn (U) 0.2 {Mack'U}/dL Normal 0.2 - 1. 0 [facility] Comment on above: Performed By: #### U AMIC ####[facility] [address] [place], [place] [address]Dr. Ivette Hernandez WBC 5-10 Abnormal NONE SEEN [facility] Comment on above: Performed By: #### U [facility] ####[facility] [address] [place], [place] [address]Su. Ivette Hernandez XR CHEST 1 Von 09-06-2022 XR CHEST 1 V Normal [facility] Patient Educationon 07-30-19 Patient Education Nutrition Calorie [...] You could (more content not included)... Normal [facility] Urology Office/Clinic Noteon 07-29-2022 Urology Office/Clinic [...] Patient Education Calorie Counting for Weight Loss IAlba, personally scribed for Dr. Michael on 07/29/2022 09:52:47. . Documentation recorded by the scribe, Alba Hayes, accurately reflects the services(s) I performed and [...] outlet re (more content not included)... Normal [facility] Comment on above: Result Comment: Elec [...] XIE, Jacqui Nieves Where: [facility] Nurse Consultation Noteon Nurse Consultation [...] 07/29/22 to review labs & PVR Normal [facility] PROF CHEM 8 (BAS METB)on Anion gap [Moles/Vol] 12.3 mmol/L Normal [facility] Comment on above: Performed By: #### B MP ####[facility] [address] [place] [address]Dr. Ivette Hernandez Calcium [Mass/Vol] 9.4 mg/dL Normal 8.5-10.1 [facility] Comment on above: Performed By: #### B MP ####[facility] U[address] [place], [place] [address]Dr. Ivette Hernandez Chloride [Moles/Vol] 105 mmol/L Normal 98-107 [facility] Comment on above: Performed By: #### B MP ####[facility] Tr[address] [place], [place] [address]Dr. Ivette Hernandez CO2 [Moles/Vol] 30.2 mmol/L Normal 21.0-32.0 [facility] Comment on above: Performed By: #### B MP ####[facility] [address]utss[address] [place] [address]Dr. Ivette Hernandez Creatinine [Mass/Vol] 2.66 mg/dL Critically high 0.55-1.02 [facility] Comment on above: Performed By: #### B MP ####[facility] H[address]in[address] [place], [place] [address]Dr. Ivette Hernandez EGFR-AF MOSOTHO 21 mL/min/1.73m2 Critically low >=60 [facility] Comment on above: Performed By: #### B MP ####[facility] [address] [place] [address]Dr. Ivette Hernandez EGFR-NON AF MOSOTHO 18 mL/min/1.73m2 Critically low >=60 [facility] Comment on above: Performed By: #### B MP ####[facility] [address]zs[address] [place] [address]Dr. Ivette Hernandez Glucose [Mass/Vol] 126 mg/dL Critically high 74-106 [facility] Comment on above: Performed By: #### B MP ####[facility] [address]ui[address] [place] [address]Dr. Ivette Hernandez Potassium [Moles/Vol] 4.5 mmol/L Normal 3.5-5.1 [facility] Comment on above: Performed By: #### B MP ####[facility] [address]wbekg59[address] [place] [address]Dr. Ivette Hernandez Sodium [Moles/Vol] 143 mmol/L Normal 136-145 [facility] Comment on above: Performed By: #### B MP ####[facility] [address]ws[address] [place] [address]Dr. Ivette Hernandez Urea nitrogen [Mass/Vol] 55.0 mg/dL Critically high 7.0-18.0 [facility] Comment on above: Performed By: #### B MP ####[facility] [address]cjcc8[address] [place] [address]Dr. Ivette Hernandez Urea nitrogen/Creatinine [Mass ratio] 20.7 mg/mg Normal [facility] Comment on above: Performed By: #### B MP ####[facility] [address] [place] [address]Dr. Ivette Hernandez Office Visiton 07-06-2022 Follow-up visit [id number] Maria G Hagen 1950 F Date Provider Department Center 07/06/2022 SILVA COOK [facility] Family History Problem Relation Age of Onset Stroke Mother Hypertension Mother Heart attack Father Hypertension Sister Heart attack Sister Heart attack Brother Family Status - Relation Status Age at Mother Father Sister Brother Level of Service:31330 DC OFFICE/OUTPATIENT ESTABLISHED MOD MDM 30-39 MIN Reason for Visit and Comments: Congestive Heart Failure [127] Atrial Fibrillation [80] Normal [facility] Lab Reportson 06-24-2022 Lab Reports [id number] 0CD:127 Normal [facility] METANEPHRINES PLASMA FREEon 06-24-2022 Metanephrine, Pl 16.5 pg/mL Normal 0.0-88.0 [facility] Comment on above: Performed By: #### M ETANPF ####[facility] [address]og[address] [place] [address]Dr. Ivette Hernandez Normetanephrine, Pl 67.2 pg/mL Normal 0.0-285.2 [facility] Comment on above: Performed By: #### M ETANPF ####[facility] X[address] [place], [place] [address]Dr. Ivette Hernandez Lab Reportson 06-23-2022 Lab Reports [id number] 0CD:127 Normal [facility] ALDOSTERONE: RENIN RATIOon 0 06-20-2022 Aldos/Renin Ratio 12.0 Normal 0.0-30.0 [facility] Comment on above: Result Comment: Unit s: ng/dL per ng/mL/hr Performed By: #### A LDOREN ####[facility] [address] [place], [place] [address]Dr. Ivette Hernandez Aldosterone 3.8 ng/dL Normal 0.0-30.0 [facility] Comment on above: Performed By: #### A LDOREN ####[facility] [address] [place], [place] [address]DrJesse Hernandez Renin Activity, Plasma 0.316 ng/mL/hr Normal 0.167-5.380 [facility] Comment on above: Performed By: #### A LDOREN ####[facility] [address] [place], [place] [address]DrJesse Hernandez CORTISOLon 06-16-2022 Cortisol 2.7 ug/dL Normal [facility] Comment on above: Result Comment: Too isol AM 6.2 - 19.4 Cortisol PM 2.3 - 11.9 Performed By: #### C [facility] ####[place] [address]DrJesse Ivette David Coding Summary.on 06-15-2022 Coding Summary. CD:[id number] Gh 0bWw+PGhlYWQ+ZN0YWRCqS 75brFXmaD0KF7sNTD4RBOU LPOIWNY4IZF9gyKT4FGlbG 2VybiAv SwdbjBEbUV18FJx4RWU8lY ozDChudQ5qvCBlS4a8MsKt WS22oC33VWvdCXNzRjB3Ua ZpbjsgbWFy D5erZzRqwEIcJgu+PHRhYm xlIHdpZHRoPScxMDAlJyBz eVzeDR3pVq5nKNRpOSLuzY xhcHNlOiBj t7uiQXNhNZqkDD4xoNsrA1 YduOP5ANYku4j8Eo76kEU+ UBSvZFW7oTvmQRhmc085Sd Pad6smYZE4 eZDvQEufSDD5P27jn9U5AB NnMPMrGFL7pZJ2cZ7jaBqv qjrsH7GfaYTeXdR9IVW3iT IjzV0dfUgk eadrmI1eFnz+R96GGF3EMI NJKL5QAyj0U3DvGymcxHZ+ CX25TAFfTE99tEJpuSWct4 hqrDb1YkLp LTZdRZD0cJltGEium5ZqUF HqH50pvWNsv0G1GFEczBag wYDsWsZsoUA6pD5yFIoayl uml9uqsuwz Uteou6lvjv97hM71I95oLY emQURbAFE1DEXiELZgaCpn ok2vcW8vSn9+JOmdp5nov0 typWl6JfDt NSPwwiAmtWtuHDY5d2BbOl 38A4GaiUkbh5CoHmn8sr25 dIKnw4Q0uCP4HVkeJCOhaL 5lUGirVvY1 RAJvArVrmZ73gSTzETbmBj 3urNqnaImsLB2wZQNxyjqw RXObxG0aCFZkzLDqsRyhNX 4wNTBpbjtm w211MnBtYAE8AQYjqVAdE9 FrdI7xUyIgXDZkDCKuP6Zz wDSeERytG618HQtpTtY9YX LgklPrB4Da BOUmqKcjJfP4r4P5Jf3Fp4 LwlzzfPZL0MAncJEFyYtLi DfScEzC7J2DtMvt7PLStbQ kfQM8qZ3Vv WUKoqpfgqwpeoZX0MMMzPI YlaA84wONaHUksOe4ry7K2 s627TTHiSIAyrY23Xr0ucS ogMTBwdCBU lU7decmtf7pmmrfpRuQmLG OiKPu9XLt3AQYvbPrpWeWj PCK2IoZ9MQT1pXHlyB1ywN badwvuwT8e Oyc+J90ydC8gUJR4MTP1nx unVKVdmbRaJG85KL93B2Bf PjwvdGFibGU+PGRpdiBzdH zfLL3xXiWa i4vwr7VtNHnqW3IgTNZrPT qtJwi7AOYdKAZ8tOU7kO7n LWBbWKavy1Z2nDT3Y0Jdyt Vdmn1es8gh UQOeHMcjI20ekMDva5E1SP OvnPS8TIDjdOqpKiVwnB36 Oyc+JJMhzGacw9KtTpftc9 ymm3djiTo5 AiWjPHQjcmCijSzdKPL7w9 TaYz81D80mSNmyCNLoIXUr EOEgQDXeiAasrh9bkM5dDq 8+PGNvbCB3 tDR9zT9oHBNlZgZ7GXyxI9 74GmMleVWmIyhgo2nfk9xn lGl1ExKpGUNszxIheYusHC Q1o4WcOo09 U47xTUvkCHZrYUUaUJFrZP DeqNxmgg7weX5bZe4+PC9j r2nopa11zZ13eHQ+PHRkIH M7xDkbGWpv CHNhgJ6rTOdzQlW8DYOuGm EnoI35yTTnFDhdTc7bkYjq tDhhPI5xKLJhiwsud975Id Kfd1bxNOJp nQVeTEgyIIG2X71ao8E9QZ MbSZUbYNX6wEQ0jI7yfDuw bjogbGVmdDsgdmVydGljYW bvYDvnW931 IHRvcDsnPlBhdGllbnQgTm HbVQb3S7VjSeb4DAWehXnb MT4ypCNcAAnyUq8saPaktE jsLJ8pGLQc btzyl437FlDcg2nhZQOhlS EfTHjkRSP7D81rr9U4TFYs TBGaCMD6bMF6gI2pjEpzyr ogbGVmdDsg nvSbuRcoBSheSOalF701UM RvcDsnPkJpcnRoIERhdGU6 GI10SK31cHYkq8G1gAJ3P7 BhZGRpbmct zsofxYJ4PJKgMWOesM07Op 3myNcdMb5fBZRfWBQ0ZXLa yQPsV6SudJ7eYrHdRTAvYH TuY4DwqBDw GHcsD632THqxAjL4AFZwbb IhE6VuXTGmrHirXhG6u2Z1 Kb1VG6Z7WV92FU02qPSbs3 U0eST8N0Kq GMIzdvjfbuzwxAB0VWOmOC WusH78Na2msNrmGa7jBZOa GZJ9FXSwgHZjY0CulT7fTi AjMDAwMDAw B8LzcBXyARuhM621YZpaDa B2UMBhlzPwJ0RgXNEdnZlj MtJ5t3B0Yn2DSMi4UN12ZU 47cWQxi2C9 pBE2I5PrFXKyibdmbwfwpH A0QSMpJOHigE46Zz8gsWkn Gk9qAXDnNBU5RSTcfKPdK1 FysV0aHnWn GNWeVAXeJ7UlcRKiUWlnK1 01LDxeHbS3UHZtcfFjD9Gx EYIccJhjPnK1k9G7Eb9DLO JuQB28BJA6 mLD7HT41SK06V9FoNedthJ FibGU+PHRhYmxlIHdpZHRo FNcqUSMvEhScsZzjZH4nYp 9yZGVyLWNv sTnexOEvOhNro3peEQBsSJ zaKV1hzBmiH9HgtKP0GDYz r4k3Wd79V32tD7ZezHG+PG OzwAH2qNA4 dW7bBeAzJrD7IYbiS270Fd LfbAChZtxwb5hpe3cnyXo6 QpI1BZHoedNqfGkiJAR5l0 WsUq70Z98c IHdpZHRoPSIxNSUiIHZhbG bxep8wwV2dHo5+PGNvbCB3 xFM8lQ1lYbBcOsA1GIeoC7 49InRvcCIv Beefx6vpi2xfsRp2AoNmLP ZrxtLceVpaMUI8a7OmVx52 I9UljOpie8CvEge9bw44rM Gdl8T3cSL0 O8XiZBAllxrngWOikLrfNR 3kKKJbpsdoLEAetM5tDMNi Z7j3HwOkJhR4RPylS2Xawm N3ENWzlLYn LYekPSK4N67fs7H0RVDvXD TxNFK6hKU0mX5wbJfvpjno bGVmdDsgdmVydGljYWwtYW voL518JPKa oLqeOCDtdX4kQQSytLSbyL nfMX5pGRLbhwpaChCLT3wI QWQwEBJTRuZ8S9OiTyg1BY CsjPlhBU1g jFNaVHkpDb1cuBymwIkeKF 3qMIBwfoblFSVwiP5tTANl lLUlwRpzLG4dPNMcdmpvm3 89FdLpHND3 EHZerPPhM8BclO9pZvReHF HcUSIrO9LafCYmFEozK555 QSmqTcS1MEEmocMoQ4PeXV FsaWduOiB0 m2L0Rw0sQW8nCl0zHYQ9UA 88PE12yPXpq0U9nEW0X9Lx SBVogssdbwxajGN2QTFdOH ArlO20iISc PYopHe1lt0D3w481XWXjHT FlvW28Sv4lzVppCUHlmTOF hK1bloszi1dyrokeScElJP FvMFr3OAi3 DBWvhCemHqWtXJN8JrA2BN P9zDYvvW7nsMgtjqlbmQ0f Oyc+XsFeDFFkrdM9R4WsOi f1MYNonZti TK8beESrSWuoAg9ofVfwmE xuFV1uUSWzknhkRXPboL4t BUJzlBZtkZsfSB1gTTEkea eph308AsXm SWF7JDQsjBJyG7NyxL1cNi VzNTPiAPBuN3KehOWlISpi D769VZgfSmD7UWNgwxXtM7 FsLWFsaWdu OeS1k9B9Ph0JUF4zrXT9R3 GcHnn1VJHwqGncXT9ynSVy IQrvMe0fkMcccMgqFX7tDL BpbjtwYWRk yB7cOOLcaVNibXpeFZ3cIC Sncbpmr571BxEmYGT0SFTz yGHlO5VuhQ0lWiLbBQHcED ZbK5DrvNLo VEgwA764VSczKmY9YBKbfe YxW5YcWLTxhJkhSdD2y1C2 Oi0PFHAjBEExkDFkXlT4Z5 RkPjwvdHI+ FC67EYGbSF96bUWwoODjn7 grrYi5LmZeYQLxUFN8wViz XMxhk2DpUWRdB69yeVSla4 A1AMHpmVxt kQGoCcVyrVX4fG6oPFympv wzo7botniiCvtfj2dmxo43 fO35L61gQLdwUKYgRXNaQL UiIHZhbGln hb0hyP1cMm6+OGPmqMR0lZ V4zG2aFuHqUcZ4GYloI381 PsNduOKkCyyya3vls7hrlP x5VxPmMTUl mpPfhSvjQPC1a1FgJo95A3 9sIHdpZHRoPSIyMCUiIHZh nXuxgk1cdH3eJo2+PC9jb2 dysc31cS97 dHI+BINiKWD4zMqvYUljVT CgrW6bVKgbKsH3GAYlTwYc bR62aKTsBSqtLy8usOeraU dzNR9aEIKx emdmz736LxHve5quBDBeaP NiZRlfCMY9V18yb3G4LBUd GGCjMHZ7xDL2gG9lvIvuxe ogbGVmdDsg iwWusWvrHAigRGheI249GN VeeNmiFzHepGWqB1wgldKG DG6yLnibkFR+AEVzNRN3gB xlPSdwYWRk dV9qBSKxE0a2MhEoDuH7MS wjO2OdnjN4BURfxGElTTSy yCTSsY0pkbvjh4jlkxeuBc AwMDAwMDt0 ZPh7BYMddZyhYwXzKRZ5Ne F4HOV1bNQavP3tkWgcxmcq iO9eNxa+RklOOjwvdGQ+PH TiLUD4zWqx MFtdWPPwnC2yBZFzF8p4Zm ErHcA8WPcyJ6DvzlA7SLWp jGPbXLHmgLYNwF5ntmpbk4 xvcjogIzAw LGPwSKs7AGz9YRRkoGegIa VpQOV0LlL3ZIS4nIJfpR6q kRdeobjmcK4xNlr+TVJOOj wvdGQ+PHRk ZDL4tUunDOnwGRFbdN7bGY UcN1x7ZzUbGbT4HIwiU2Lu qfG5EVRihAGiYKFpsCXLpK 7cinjyd2kl kgijVaPvPSSuDCr1PMn0WE MyyKijDuOxOTU5AjV0WIX9 fDSebK8ptHmtwcllyQ6mXx c+LTV1ZFH2 PJ07YS52M4IvPgpkoGEnuF U+PHRhYmxlIHdpZHRoPScx BAFfHrIkjJxrVT0xAs5rDV VyLWNvbGxh cHNl (more content not included)... Normal [facility] C Urineon 06-13-2022 Bacteria identified Cx [...] Locations R1: This test was performed at: [facility], [address] [place] [address], [address]- , , [facility] Comment on above: Performed By: #### 2 [id number] #### [facility] [address] [place] [address] Ambulatory Visit Summaryon 0 06-10-2022 Ambulatory Visit Summary MARTIN HAGEN :1950 Visit Date:06/10/2022 Ambulatory Visit Instructions Your Diagnosis Microhematuria Adrenal mass Renal cyst Urinary retention with incomplete bladder emptying Tests Performed Urnls Dip Stick Auto w/o Microscopy POC 71445 Your Care Team Attending Physician - Alec [...] AM EST With: Where: [facility] [address] [place] [id number]- \.br\ You Need to Schedule the Following Appointments\.br \ Follow Up with Alec XIE, Jacqui Nieves, ARIANNEL, URO When: \.br\ Where:\.br\ Medications\.br\ What How Much When Why Instructions\.br \ New dexamethasone (dexamethasone 1 mg oral tablet) 1 Tablets By Mouth Once Adrenal mass take at 11pm. complete cortisol level at 8am. Pickup at [facility]\.br\ Unchanged cephalexin (Keflex 500 mg Cap) 1 [...] if questions or concerns \.br\ Pharmacy Information\.br\ [facility]: [address] [place], [place] [id number] [phone]\.br\ Test Results\.br\ Urnls Dip Stick Auto w/o Microscopy POC 88162 (06/10/2022)\.br \ Bilirubin Urine Dipstick - Negative\.br\ Blood Urine Dipstick - 3+ Large\.br\ Glucose Urine Dipstick - Negative\.br\ Ketones Urine Dipstick - Negative\.br\ Leukocytes Urine Dipstick - 3+ Large\.br\ Nitrite Urine Dipstick - Negative\.br\ Protein Urine Dipstick - 2+ (100 mg/dl)\.br\ Specific [place] Urine Dipstick - 1.020\.br\ Urine Appearance Urine [...] instructions at home:\.br\ Medicines\.br\ ? \.br\ Take wtwq-gxl-ksndkic and prescription medicines only as told by [...] ? \.br\ Avoid caffeine, tea, and [facility] Patient Educationon 06-10-19 Patient Education Urology Hematuria, [...] these instructions at home: Medicines ? Take hweb-msy-tymihdc and prescription medicines only as told by [...] the blood stops without treatment. ? Take iujl-kid-rqtiuhi and prescription medicines only as told by your health care provider. ? Drink enough fluid to keep your urine clear or pale yellow. This information is not intended to replace advice given to you by your health care provider. Make sure you discuss any questions you have with your health care provider. Document Released: 04/19/2006 Document Revised: 09/13/2019 Document Reviewed: 05/22/2017 [employer] Patient Education ? 2019 [employer] Normal [facility] URINALYSISOrdered By: Iwona suárez on 06-10-2022 [...] PM) Normal Negative [facility] UA Auto SS Allouez.plasma/Lithiu m.RBC (Bld) [Mass ratio] 4-20 /HPF Normal 0-3/HPF [facility] UA Auto SS Mucus Ql (Urine sed) Trace (06/10/22 12:20 PM) Normal [facility] UA Auto SS Nitrite Ql (U) Negative (06/10/22 12:20 PM) Normal Negative [facility] UA Auto SS pH (U) 5.5 *NA* (06/10/22 12:20 PM) Invalid Interpretation Code 5.0 - 9.0 [facility] UA Auto SS Protein (U) [Mass/Vol] 1+ *ABN* (06/10/22 12:20 PM) Invalid Interpretation Code Negative [facility] UA Auto SS Specific gravity (U) [Rel density] 1.020 *NA* (06/10/22 12:20 PM) Invalid Interpretation Code 1.005 - 1.030 [facility] UA Auto SS UA Spec Desc Random Urine (06/10/22 12:20 PM) Normal [facility] UA Auto SS Urobilinogen Qn (U) 0.4542033 {Mack'U}/dL Normal 0.0 - 1.0 EU/dL [facility] UA Auto SS WBC Auto Ql (U) 2+ *ABN* (06/10/22 12:20 PM) Invalid Interpretation Code Negative [facility] UA Auto SS WBC LM.HPF (Urine sed) [#/Area] /[HPF] Invalid Interpretation Code 0-5/HPF [facility] UA Auto SS Urinalysison 06-10-2022 Bacteria LM Ql (Urine sed) 2+ /HPF Abnormal Trace [facility] Comment on above: Performed By: #### 1 [id number] ####[facility] [address] [place] [address] Bilirubin Ql (U) Negative Normal Negative [facility] Comment on above: Performed By: #### 1 [id number] ####[address] [address] Clarity (U) CLOUDY Abnormal Clear [facility] Comment on above: Performed By: #### 1 [id number] ####[facility] [address] [place] [address] Color (U) YELLOW Normal Yellow [facility] Comment on above: Performed By: #### 1 [id number] ####[facility] [address] [place] [address] Crystals LM Ql (Urine sed) Present Normal [facility] Comment on above: Performed By: #### 1 [id number] ####[facility] [address] [place] [address] Epithelial cells.squamous LM.HPF (Urine sed) [#/Area] 3-4 Normal 0-2 [facility] Comment on above: Performed By: #### 1 [id number] ####[facility] [address] [place] [address] Glucose Test strip (U) [Mass/Vol] Negative Normal Negative [facility] Comment on above: Performed By: #### 1 [id number] ####[facility] [address] [place] [address] Hemoglobin Ql (U) 3+ Abnormal Negative [facility] Comment on above: Performed By: #### 1 [id number] ####[facility] [address] [place] [address] Ketones (U) [Mass/Vol] Negative Normal Negative [facility] Comment on above: Performed By: #### 1 [id number] ####[address] [address] Allouez.plasma/Lithiu m.RBC (Bld) [Mass ratio] 4-20 Normal 0-3 [facility] Comment on above: Performed By: #### 1 [id number] ####[address] [place] [address] Mucus Ql (Urine sed) TRACE Normal [facility] Comment on above: Performed By: #### 1 [id number] ####[address] [address] Nitrite Ql (U) Negative Normal Negative [facility] Comment on above: Performed By: #### 1 [id number] ####[address] [address] pH (U) 5.5 [pH] Invalid Interpretation Code 5.0-9.0 [facility] Comment on above: Performed By: #### 1 [id number] ####[address] [address] Protein (U) [Mass/Vol] 1+ Abnormal Negative [facility] Comment on above: Performed By: #### 1 [id number] ####[address] [address] Specific gravity (U) [Rel density] 1.020 Invalid Interpretation Code 1.005-1.030 [facility] Comment on above: Performed By: #### 1 [id number] ####[address] [address] Type of Urine collection method Random Urine Normal [facility] Comment on above: Performed By: #### 1 [id number] ####[address] [address] Urobilinogen Qn (U) 0.2 {Mack'U}/dL Normal 0.0-1.0 [facility] Comment on above: Performed By: #### 1 [id number] ####[facility] [address] [place] [address] WBC Auto Ql (U) 2+ Abnormal Negative [facility] Comment on above: Performed By: #### 1 [id number] ####[facility] [address] [place] [address] WBC LM.HPF (Urine sed) [#/Area] /[HPF] Abnormal 0-5 [facility] Comment on above: Performed By: #### 1 [id number] ####[facility] [address] [place] [address] Urology Office/Clinic Noteon 06-10-2022 Urology Office/Clinic Note [...] in uncontroll (more content not included)... Normal [facility] Comment on above: Result Comment: Elec tronically Signed By: Jacqui Michael MD\.br\Date and Time Signed: 06/10/22 17:35 EST\.br\Electronically Co-Signed By: Marissa Denson\.br\Date and Time Co-Signed: 06/10/22 10:[address] ABD/PELV W CONon 05-06-19 CT ABD/PELV W CON Normal [facility] CREATININEon 05-05-2022 Creatinine [Mass/Vol] 1.49 mg/dL Critically high 0.55-1.02 [facility] Comment on above: Performed By: #### C BENITA ####[facility] [address] [address]Dr. Ivette Hernandez EGFR-AF MOSOTHO 42 mL/min/1.73m2 Critically low >=60 [facility] Comment on above: Performed By: #### C BENITA ####[facility] Hlprdtxksn208[address] [place], [place] [address]Dr. Ivette Hernandez EGFR-NON AF MOSOTHO 34 mL/min/1.73m2 Critically low >=60 [facility] Comment on above: Performed By: #### C BENITA ####[facility] Kpkrkxldeh411[address] [place], [place] [address]Dr. Ivette Hernandez PROF CHEM 8 (BAS METB)on Anion gap [Moles/Vol] 12.6 mmol/L Normal [facility] Comment on above: Performed By: #### B MP ####[facility] Emwggslhsw3219[address] [place], [place] [address]Dr. Ivette Hernandez Calcium [Mass/Vol] 8.0 mg/dL Critically low 8.5-10.1 [facility] Comment on above: Performed By: #### B MP ####[facility] Rapmsoxirp069[address] [place], [place] [address]Dr. Ivette Hernandez Chloride [Moles/Vol] 103 mmol/L Normal 98-107 [facility] Comment on above: Performed By: #### B MP ####[facility] Xksicliddq698[address] [place], [place] [address]Dr. Ivette Hernandez CO2 [Moles/Vol] 28.7 mmol/L Normal 21.0-32.0 [facility] Comment on above: Performed By: #### B MP ####[facility] Ajagykwzda801[address] [place], [place] [address]Dr. Ivette Hernandez Creatinine [Mass/Vol] 1.54 mg/dL Critically high 0.55-1.02 [facility] Comment on above: Performed By: #### B MP ####[facility] Oneumujjtl897[address] [place], [place] [address]Dr. Ivette Hernandez EGFR-AF MOSOTHO 40 mL/min/1.73m2 Critically low >=60 [facility] Comment on above: Performed By: #### B MP ####[facility] [address]uxuovk[address] [place] [address]Dr. Ivette Hernandez EGFR-NON AF MOSOTHO 33 mL/min/1.73m2 Critically low >=60 [facility] Comment on above: Performed By: #### B MP ####[facility] Rrvsnabrmr13[address] [place] [address]Dr. Ivette Hernandez Glucose [Mass/Vol] 126 mg/dL Critically high 74-106 [facility] Comment on above: Performed By: #### B MP ####[facility] Gwsagcnghd69[address] [place] [address]Dr. Ivette Hernandez Potassium [Moles/Vol] 3.3 mmol/L Critically low 3.5-5.1 [facility] Comment on above: Performed By: #### B MP ####[facility] Pxodekzqyp15[address] [place], [place] [address]Dr. Ivette Hernandez Sodium [Moles/Vol] 141 mmol/L Normal 136-145 [facility] Comment on above: Performed By: #### B MP ####[facility] Ofvkwvkgad499[address] [place], [place] [address]Dr. Ivette Hernandez Urea nitrogen [Mass/Vol] 21.0 mg/dL Critically high 7.0-18.0 [facility] Comment on above: Performed By: #### B MP ####[facility] Kpqutucjiw9219[address] [place], [place] [address]Dr. Ivette Hernandez Urea nitrogen/Creatinine [Mass ratio] 13.6 mg/mg Normal [facility] Comment on above: Performed By: #### B MP ####[facility] Lxljuiwaea928[address] [place], [place] [address]Dr. Ivette Hernandez CBC AUTO DIFFon 04-13-2022 BASO # 0.0 103/ul Normal 0.0-0.1 [facility] Comment on above: Performed By: #### C BC ####[facility] Qzzzphcebp0225[address] [place], [place] [address]Dr. Ivette Hernandez Basophils/100 WBC (Bld) 0.3 % Normal 0.2-2.0 [facility] Comment on above: Performed By: #### C BC ####[facility] Ahhywvgbcd12[address] [place] [address]Dr. Ivette Hernandez EO # 0.3 103/ul Normal 0.0-0.7 [facility] Comment on above: Performed By: #### C BC ####[facility] Sywuhlvdrf380[address] [place], [place] [address]Dr. Cherjun Hernandez Eosinophils/100 WBC (Bld) 4.3 % Normal 0.9-7.0 [facility] Comment on above: Performed By: #### C BC ####[facility] Ajszvsbyfq0887[address] [place], [place] [address]Dr. Cherjun Hernandez Erythrocyte distribution width (RBC) [Ratio] 14.2 % Normal 11.0-15.0 [facility] Comment on above: Performed By: #### C BC ####[facility] Uipjnnjscn115[address] [place], [place] [address]Dr. Cherjun Hernandez Hematocrit (Bld) [Volume fraction] 26.2 % Critically low 36.0-48.0 [facility] Comment on above: Performed By: #### C BC ####[facility] Dkmerzlvvo2101[address] [place], [place] [address]Dr. Ivette Hernandez Hemoglobin (Bld) [Mass/Vol] 8.0 g/dL Critically low 12.0-16.0 [facility] Comment on above: Performed By: #### C BC ####[facility] Ximyzrglak732[address] [place], [place] [address]Dr. Cherjun Hernandez IG # 0.03 10e3/ul Normal 0.00-0.03 [facility] Comment on above: Performed By: #### C BC ####[facility] Cqmehkaiep3219[address] [place], [place] [address]Dr. Cherjun Hernandez IG % 0.5 % Normal 0.0-0.5 [facility] Comment on above: Performed By: #### C BC ####[facility] Jpzsszfrcm788[address] [place], [place] [address]DrJesse Hernandez LYMPH # 2.2 103/ul Normal 1.2-3.8 [facility] Comment on above: Performed By: #### C BC ####[facility] Gjnifqypdu8446 [place] [id number]. Ivette Hernandez Lymphocytes/100 WBC (Bld) 35.5 % Normal 20.5-60.0 [facility] Comment on above: Performed By: #### C BC ####[facility] Orcpszvdzs8283 [place] [phone]. Ivette Hernandez MANUAL DIFF REQ NO Normal [facility] Comment on above: Performed By: #### C BC ####[facility] Jwnpicphbt6389 [place] [phone]. Ivette Hernandez MCH (RBC) [Entitic mass] 28.0 pg Normal 26.7-34.0 [facility] Comment on above: Performed By: #### C BC ####[facility] Chywpvukty648[address] [place], [place] [address]Dr. Ivette Hernandez MCHC (RBC) [Mass/Vol] 30.5 g/dL Normal 29.9-35.2 [facility] Comment on above: Performed By: #### C BC ####[facility] Tfabgebijw706[address] [place], [place] [address]Dr. Ivette Hernandez MCV (RBC) [Entitic vol] 91.6 fL Normal 81.0-99.0 [facility] Comment on above: Performed By: #### C BC ####[facility] Vjjdwvccym435[address] [place], [place] [address]Dr. Ivette Hernandez MONO # 0.5 103/ul Normal 0.3-0.8 [facility] Comment on above: Performed By: #### C BC ####[facility] Hujhueyblq[address] [place], [place] [address]Dr. Ivette Hernandez Monocytes/100 WBC (Bld) 8.2 % Normal 1.7-12.0 [facility] Comment on above: Performed By: #### C BC ####[facility] Ypotkciyet94[address] [place], [place] [address]DrJesse Hernandez NEUT # 3.2 103/ul Normal 1.4-6.5 [facility] Comment on above: Performed By: #### C BC ####[facility] Uxgrjoxbvi7079 [place], [place] [address]Kf. Ivette Hernandez Neutrophils/100 WBC (Bld) 51.2 % Normal 43.0-75.0 [facility] Comment on above: Performed By: #### C BC ####[facility] Eolyvdctlf3258 [place], [place] [address]Vk. Ivette Hernandez Platelet mean volume (Bld) [Entitic vol] 9.8 fL Normal 9.5-13.5 [facility] Comment on above: Performed By: #### C BC ####[facility] Trlhqtiosx9249 [place], [place] [address]Yb. Ivette Hernandez PLT 168 103/ul Normal 150-450 [facility] Comment on above: Performed By: #### C BC ####[facility] Cwcpmveezs3726 [place], [place] [address]Za. Ivette Hernandez RBC 2.86 106/ul Critically low 4.20-5.40 [facility] Comment on above: Performed By: #### C BC ####[facility] Aorbhmwiwz9601 [place], [place] [address]Gj. Ivette Hernandez WBC 6.2 103/ul Normal 4.0-11.0 [facility] Comment on above: Performed By: #### C BC ####[facility] Iakmajqdmx5769 [place] [phone]. Ivette Hernandez Office Visiton 04-13-2022 Follow-up visit [id number] Maria G Hagen 1950 F Date Provider Department Center 04/13/2022 MADI MITCHELL [facility] Family History Problem Relation Age of Onset Stroke Mother Hypertension Mother Heart attack Father Hypertension Sister Heart attack Sister Heart attack Brother Family Status - Relation Status Age at Mother Father Sister Brother Level of Service:86551 DC OFFICE/OUTPATIENT ESTABLISHED MOD MDM 30-39 MIN Reason for Visit and Comments: Congestive Heart Failure [127] Atrial Fibrillation [80] Normal [facility] POINT OF CARE GLUCOSEon 04-02 Glucose [Mass/Vol] 140 mg/dL Critically high 74-106 [facility] Comment on above: Performed By: #### P OCGLUC ####[facility] Ukirkrfwvy4501[address] [place], [place] [address]Dr. Ivette Hernandez PROF CHEM 8 (BAS METB)on Anion gap [Moles/Vol] 7.9 mmol/L Normal [facility] Comment on above: Performed By: #### B MP ####[facility] Mwnpfcrdop558[address] [place], [place] [address]Dr. Ivette Hernandez Calcium [Mass/Vol] 7.9 mg/dL Critically low 8.5-10.1 [facility] Comment on above: Performed By: #### B MP ####[facility] Ewbatqqrse5219[address] [place], [place] [address]Dr. Ivette Hernandez Chloride [Moles/Vol] 106 mmol/L Normal 98-107 [facility] Comment on above: Performed By: #### B MP ####[facility] Zszjapynrw5969[address] [place], [place] [address]Dr. Ivette Hernandez CO2 [Moles/Vol] 32.0 mmol/L Normal 21.0-32.0 [facility] Comment on above: Performed By: #### B MP ####[facility] Iqhhzlrmbu786[address] [place], [place] [address]Dr. Ivette Hernandez Creatinine [Mass/Vol] 1.67 mg/dL Critically high 0.55-1.02 [facility] Comment on above: Performed By: #### B MP ####[facility] Vkvsrdktqy786[address] [place], [place] [address]Dr. Ivette Hernandez EGFR-AF MOSOTHO 36 mL/min/1.73m2 Critically low >=60 [facility] Comment on above: Performed By: #### B MP ####[facility] Qlmilodnjv4989[address] [place], [place] [address]Dr. Ivette Hernandez EGFR-NON AF MOSOTHO 30 mL/min/1.73m2 Critically low >=60 [facility] Comment on above: Performed By: #### B MP ####[facility] Feukpbcair06[address] [place], [place] [address]Dr. Ivette David Glucose [Mass/Vol] 91 mg/dL Normal 74-106 [facility] Comment on above: Performed By: #### B MP ####[facility] Pnacjobiqb959[address] [place], [place] [address]Dr. Ivette Hernandez Potassium [Moles/Vol] 3.9 mmol/L Normal 3.5-5.1 [facility] Comment on above: Performed By: #### B MP ####[facility] Kwxoywossj486[address] [place], [place] [address]Dr. Ivette David Sodium [Moles/Vol] 142 mmol/L Normal 136-145 [facility] Comment on above: Performed By: #### B MP ####[facility] Rjouazxacb1277[address] [place], [place] [address]Dr. Ivette David Urea nitrogen [Mass/Vol] 26.0 mg/dL Critically high 7.0-18.0 [facility] Comment on above: Performed By: #### B MP ####[facility] Sqdtaxvlwy47450[address] [place], [place] [address]Dr. Cherjun David Urea nitrogen/Creatinine [Mass ratio] 15.6 mg/mg Normal [facility] Comment on above: Performed By: #### B MP ####[facility] Vtwblurvxu428[address] [place], [place] [address]Dr. Ivette David CBC AUTO DIFFon 04-12-2022 BASO # 0.0 103/ul Normal 0.0-0.1 [facility] Comment on above: Performed By: #### C BC ####[facility] Qiodrmcaiw28[address] [place], [place] [address]Dr. Ivette Hernandez Basophils/100 WBC (Bld) 0.5 % Normal 0.2-2.0 [facility] Comment on above: Performed By: #### C BC ####[facility] Sasvavgfdx7929[address] [place], [place] [address]Dr. Ivette Hernandez EO # 0.3 103/ul Normal 0.0-0.7 [facility] Comment on above: Performed By: #### C BC ####[facility] Dbzwjwxyxs8024[address] [place], [place] [address]Dr. Ivette Hernandez Eosinophils/100 WBC (Bld) 4.4 % Normal 0.9-7.0 [facility] Comment on above: Performed By: #### C BC ####[facility] Izxjqdvide4765 [place] [address]Dr. Ivette Hernandez Erythrocyte distribution width (RBC) [Ratio] 14.2 % Normal 11.0-15.0 [facility] Comment on above: Performed By: #### C BC ####[facility] Utrzpgmtrx7760 [place] [address]Dr. Ivette Hernandez Hematocrit (Bld) [Volume fraction] 25.9 % Critically low 36.0-48.0 [facility] Comment on above: Performed By: #### C BC ####[facility] Xhfieafqwi2137[address] [place], [place] [address]Dr. Ivette Hernandez Hemoglobin (Bld) [Mass/Vol] 8.0 g/dL Critically low 12.0-16.0 [facility] Comment on above: Performed By: #### C BC ####[facility] Yxdpegywqo2967[address] [place], [place] [address]Dr. Ivette Hernandez IG # 0.03 10e3/ul Normal 0.00-0.03 [facility] Comment on above: Performed By: #### C BC ####[facility] Pmpioovtlq364[address] [place], [place] [address]Dr. Ivette Hernandez IG % 0.5 % Normal 0.0-0.5 [facility] Comment on above: Performed By: #### C BC ####[facility] Badzebuqbh736[address] [place], [place] [address]Dr. Ivette Hernandez LYMPH # 2.1 103/ul Normal 1.2-3.8 [facility] Comment on above: Performed By: #### C BC ####[facility] Arzrawgmpk005[address] [place], [place] [address]Dr. Ivette Hernandez Lymphocytes/100 WBC (Bld) 35.0 % Normal 20.5-60.0 [facility] Comment on above: Performed By: #### C BC ####[facility] Vqptekydxy69[address] [place] [address]Dr. Ivette David MANUAL DIFF REQ NO Normal [facility] Comment on above: Performed By: #### C BC ####[facility] Qxayrckitj8100 [place] [address]Dr. Ivette David MCH (RBC) [Entitic mass] 28.3 pg Normal 26.7-34.0 [facility] Comment on above: Performed By: #### C BC ####[facility] Ovjgvnnotp4900 [place] [address]Dr. Ivette David MCHC (RBC) [Mass/Vol] 30.9 g/dL Normal 29.9-35.2 [facility] Comment on above: Performed By: #### C BC ####[facility] Xwucbuiebe095[address] [place], [place] [address]Dr. Cherjun Hernandez MCV (RBC) [Entitic vol] 91.5 fL Normal 81.0-99.0 [facility] Comment on above: Performed By: #### C BC ####[facility] Isypnkecvg0557[address] [place], [place] [address]Dr. Ivette David MONO # 0.4 103/ul Normal 0.3-0.8 [facility] Comment on above: Performed By: #### C BC ####[facility] Vcwzagxqxy00[address] [place], [place] [address]Dr. Ivette Hernandez Monocytes/100 WBC (Bld) 7.1 % Normal 1.7-12.0 [facility] Comment on above: Performed By: #### C BC ####[facility] Cmbyhquedf6657[address] [place], [place] [address]Dr. Cherjun David NEUT # 3.1 103/ul Normal 1.4-6.5 [facility] Comment on above: Performed By: #### C BC ####[facility] Uvklvxpcez6397[address] [place], [place] [address]Dr. Ivette Hernandez Neutrophils/100 WBC (Bld) 52.5 % Normal 43.0-75.0 [facility] Comment on above: Performed By: #### C BC ####[facility] Krwfbnpccv[address] [place], [place] [address]Dr. Ivette Hernandez Platelet mean volume (Bld) [Entitic vol] 9.6 fL Normal 9.5-13.5 [facility] Comment on above: Performed By: #### C BC ####[facility] Jekqusuvco98[address] [place] [address]Dr. Ivette Hernandez PLT 163 103/ul Normal 150-450 [facility] Comment on above: Performed By: #### C BC ####[facility] Szkdoosgpt059[address] [place], [place] [address]Dr. Ivette Hernandez RBC 2.83 106/ul Critically low 4.20-5.40 [facility] Comment on above: Performed By: #### C BC ####[facility] Kreqjraubg146[address] [place], [place] [address]Dr. Ivette David WBC 5.9 103/ul Normal 4.0-11.0 [facility] Comment on above: Performed By: #### C BC ####[facility] Snhmpcdezd2427[address] [place], [place] [address]Dr. Ivette Hernandez CULTURE URINEon 04-12-2022 CULTURE URINE Normal [facility] Comment on above: Performed By: #### U RCX ####[facility] Rqjwmwjgit7059[address] [place], [place] [address]Dr. Ivette David POINT OF CARE GLUCOSEon 04-02-2021 Glucose [Mass/Vol] 106 mg/dL Normal 74-106 [facility] Comment on above: Performed By: #### P OCGLUC ####[facility] Tvgceserwd777[address] [place], [place] [address]Dr. Ivette David Glucose [Mass/Vol] 212 mg/dL Critically high 74-106 [facility] Comment on above: Performed By: #### P OCGLUC ####[facility] Cnwscztcvy24350[address] [place], [place] [address]Dr. Ivette Hernandez Glucose [Mass/Vol] 136 mg/dL Critically high 74-106 [facility] Comment on above: Performed By: #### P OCGLUC ####[facility] Gbpubxgnuz6613[address] [place], [place] [address]Dr. Ivette Hernandez PROF CHEM 8 (BAS METB)on Anion gap [Moles/Vol] 9.6 mmol/L Normal [facility] Comment on above: Performed By: #### B MP ####[facility] Jpdlayomgi7351 [place] [address]Dr. Ivette Hernandez Calcium [Mass/Vol] 7.5 mg/dL Critically low 8.5-10.1 [facility] Comment on above: Performed By: #### B MP ####[facility] Tsjaydroim837[address] [place], [place] [address]Dr. Ivette Hernandez Chloride [Moles/Vol] 106 mmol/L Normal 98-107 [facility] Comment on above: Performed By: #### B MP ####[facility] Rivdhogpzg2387[address] [place], [place] [address]Dr. Ivette Hernandez CO2 [Moles/Vol] 29.3 mmol/L Normal 21.0-32.0 [facility] Comment on above: Performed By: #### B MP ####[facility] Scojzlnmla929[address] [place], [place] [address]Dr. Ivette Hernandez Creatinine [Mass/Vol] 1.48 mg/dL Critically high 0.55-1.02 [facility] Comment on above: Performed By: #### B MP ####[facility] Pbjkxwfklx368[address] [place], [place] [address]Dr. Ivette Hernandez EGFR-AF MOSOTHO 42 mL/min/1.73m2 Critically low >=60 [facility] Comment on above: Performed By: #### B MP ####[facility] Ikawunvisd609[address] [place], [place] [address]Dr. Ivette Hernandez EGFR-NON AF MOSOTHO 35 mL/min/1.73m2 Critically low >=60 [facility] Comment on above: Performed By: #### B MP ####[facility] Vuqkphmemk827[address] [place], [place] [address]Dr. Ivette Hernandez Glucose [Mass/Vol] 87 mg/dL Normal 74-106 [facility] Comment on above: Performed By: #### B MP ####[facility] Xoqkoiapfy5128 [place] [address]Dr. Ivette Hernandez Potassium [Moles/Vol] 3.9 mmol/L Normal 3.5-5.1 [facility] Comment on above: Performed By: #### B MP ####[facility] Edbnpzpqvi86230[address] [place], [place] [address]Dr. Ivette Hernandez Sodium [Moles/Vol] 141 mmol/L Normal 136-145 [facility] Comment on above: Performed By: #### B MP ####[facility] Dkmacxzhcx911[address] [place], [place] [address]Dr. Ivette Hernandez Urea nitrogen [Mass/Vol] 24.0 mg/dL Critically high 7.0-18.0 [facility] Comment on above: Performed By: #### B MP ####[facility] Elegrhdjkz049[address] [place], [place] [address]Dr. Ivette Hernandez Urea nitrogen/Creatinine [Mass ratio] 16.2 mg/mg Normal [facility] Comment on above: Performed By: #### B MP ####[facility] Jhzbrqwsew37[address] [place], [place] [address]Dr. Ivette Hernandez CBC AUTO DIFFon 04-11-2022 BASO # 0.0 103/ul Normal 0.0-0.1 [facility] Comment on above: Performed By: #### C BC ####[facility] Qduzigtayx0201[address] [place], [place] [address]Dr. Ivette David Basophils/100 WBC (Bld) 0.3 % Normal 0.2-2.0 [facility] Comment on above: Performed By: #### C BC ####[facility] Utqdcdvunw89360[address] [place], [place] [address]Dr. Ivette Hernandez EO # 0.2 103/ul Normal 0.0-0.7 [facility] Comment on above: Performed By: #### C BC ####[facility] Mocyswywkh9499[address] [place], [place] [address]Dr. Ivette David Eosinophils/100 WBC (Bld) 2.8 % Normal 0.9-7.0 [facility] Comment on above: Performed By: #### C BC ####[facility] Znimltophj3036 [place] [address]Dr. Ivette Hernandez Erythrocyte distribution width (RBC) [Ratio] 14.4 % Normal 11.0-15.0 [facility] Comment on above: Performed By: #### C BC ####[facility] Zgdnlpmads6033 [place] [address]Dr. Ivette Hernandez Hematocrit (Bld) [Volume fraction] 24.9 % Critically low 36.0-48.0 [facility] Comment on above: Performed By: #### C BC ####[facility] Rewsrpqiof104[address] [place], [place] [address]Dr. Ivette Hernandez Hemoglobin (Bld) [Mass/Vol] 7.7 g/dL Critically low 12.0-16.0 [facility] Comment on above: Performed By: #### C BC ####[facility] Nqccnjpcgq215[address] [place], [place] [address]Dr. Ivette Hernandez IG # 0.02 10e3/ul Normal 0.00-0.03 [facility] Comment on above: Performed By: #### C BC ####[facility] Xitaagfqbt9787[address] [place], [place] [address]Dr. Ivette Hernandez IG % 0.3 % Normal 0.0-0.5 [facility] Comment on above: Performed By: #### C BC ####[facility] Fvispesaok9379[address] [place], [place] [address]Dr. Ivette Hernandez LYMPH # 1.9 103/ul Normal 1.2-3.8 [facility] Comment on above: Performed By: #### C BC ####[facility] Jexhoiipbq6269[address] [place], [place] [address]Dr. Ivette Hernandez Lymphocytes/100 WBC (Bld) 32.7 % Normal 20.5-60.0 [facility] Comment on above: Performed By: #### C BC ####[facility] Dkaonxgiaf377[address] [place], [place] [address]Dr. Ivette Hernandez MANUAL DIFF REQ NO Normal [facility] Comment on above: Performed By: #### C BC ####[facility] Rmovssjkws3596 [place] [address]Dr. Ivette Hernandez MCH (RBC) [Entitic mass] 28.3 pg Normal 26.7-34.0 [facility] Comment on above: Performed By: #### C BC ####[facility] Wyovokdswc3717 [place] [address]Dr. Ivette Hernandez MCHC (RBC) [Mass/Vol] 30.9 g/dL Normal 29.9-35.2 [facility] Comment on above: Performed By: #### C BC ####[facility] Guvyljprzr514[address] [place], [place] [address]Dr. Ivette Hernandez MCV (RBC) [Entitic vol] 91.5 fL Normal 81.0-99.0 [facility] Comment on above: Performed By: #### C BC ####[facility] Hareywxdag1216[address] [place], [place] [address]Dr. Ivette David MONO # 0.5 103/ul Normal 0.3-0.8 [facility] Comment on above: Performed By: #### C BC ####[facility] Efarmansut14[address] [place], [place] [address]Dr. Ivette David Monocytes/100 WBC (Bld) 8.2 % Normal 1.7-12.0 [facility] Comment on above: Performed By: #### C BC ####[facility] Nqlbsdpbtk4689[address] [place], [place] [address]Dr. Ivette Hernandez NEUT # 3.2 103/ul Normal 1.4-6.5 [facility] Comment on above: Performed By: #### C BC ####[facility] Yesrqkxfqp6307[address] [place], [place] [address]Dr. Ivette David Neutrophils/100 WBC (Bld) 55.7 % Normal 43.0-75.0 [facility] Comment on above: Performed By: #### C BC ####[facility] Lfnpiquieb[address] [place], [place] [address]Dr. Ivette David Platelet mean volume (Bld) [Entitic vol] 9.7 fL Normal 9.5-13.5 [facility] Comment on above: Performed By: #### C BC ####[facility] Qhkptymiss3455 [place] [id number]. Ivette Hernandez PLT 139 103/ul Critically low 150-450 [facility] Comment on above: Performed By: #### C BC ####[facility] Xekvvjpmmu3207 [place] [phone]. Ivette Hernandez RBC 2.72 106/ul Critically low 4.20-5.40 [facility] Comment on above: Performed By: #### C BC ####[facility] Fiphmyezps5023 [place] [phone]. Ivette Hernandez WBC 5.8 103/ul Normal 4.0-11.0 [facility] Comment on above: Performed By: #### C BC ####[facility] Gzvimtngdw4613 [place] [address]Dr. Ivette Hernandez IRON AND TIBCon 04-11-2022 % SATURATION 10.4 % Normal [facility] Comment on above: Performed By: #### B 12FOL, FETIBC ####[facility] Btcmvyjznc3895 [place] [address]Dr. Ivette Hernandez Iron [Mass/Vol] 19.0 ug/dL Critically low 50.0-170.0 [facility] Comment on above: Performed By: #### B 12FOL, FETIBC ####[facility] Toykuftopj0896 [place] [phone]. Ivette Hernandez TIBC DIRECT 182.0 ug/dL Critically low 250.0-450.0 [facility] Comment on above: Performed By: #### B 12FOL, FETIBC ####[facility] Jnkyykhsrx3812 [place] [phone]. Ivette Hernandez POINT OF CARE GLUCOSEon 04-02 Glucose [Mass/Vol] 124 mg/dL Critically high 74-106 [facility] [facility] Comment on above: Performed By: #### P OCGLUC ####[facility] [address]ujyw[address] [place] [address]Dr. Ivette Hernandez Glucose [Mass/Vol] 128 mg/dL Critically high 74-106 [facility] Comment on above: Performed By: #### P OCGLUC ####[facility] K[address]bculmsb[address] [place] [address]Dr. Ivette Hernandez Glucose [Mass/Vol] 144 mg/dL Critically high 74-106 [facility] Comment on above: Performed By: #### P OCGLUC ####[facility] Grjcrywhtg[address] [place] [address]Dr. Ivette Hernandez PROF CHEM 8 (BAS METB)on Anion gap [Moles/Vol] 9.7 mmol/L Normal [facility] Comment on above: Performed By: #### B MP ####[facility] Onvsootssb[address] [place] [address]Dr. Ivette Hernandez Calcium [Mass/Vol] 6.9 mg/dL Critically low 8.5-10.1 [facility] Comment on above: Performed By: #### B MP ####[facility] Pphrkmdwrb376[address] [place], [place] [address]Dr. Ivette Hernandez Chloride [Moles/Vol] 109 mmol/L Critically high 98-107 [facility] Comment on above: Performed By: #### B MP ####[facility] Bfpxvtrgit[address] [place], [place] [address]Dr. Ivette Hernandez CO2 [Moles/Vol] 29.2 mmol/L Normal 21.0-32.0 [facility] Comment on above: Performed By: #### B MP ####[facility] Vexqmeyyyq[address] [place], [place] [address]Dr. Ivette Hernandez Creatinine [Mass/Vol] 1.41 mg/dL Critically high 0.55-1.02 [facility] Comment on above: Performed By: #### B MP ####[facility] Zwrfubwvth[address] [place], [place] [address]Dr. Ivette Hernandez EGFR-AF MOSOTHO 44 mL/min/1.73m2 Critically low >=60 [facility] Comment on above: Performed By: #### B MP ####[facility] Laezwoogla[address] [place], [place] [address]Dr. Ivette Hernandez EGFR-NON AF MOSOTHO 37 mL/min/1.73m2 Critically low >=60 [facility] Comment on above: Performed By: #### B MP ####[facility] Qdlrplzfma[address] [place] [address]Dr. Ivette Hernandez Glucose [Mass/Vol] 95 mg/dL Normal 74-106 [facility] Comment on above: Performed By: #### B MP ####[facility] Vrtacnifoa[address] [place], [place] [address]Dr. Ivette Hernandez Potassium [Moles/Vol] 3.9 mmol/L Normal 3.5-5.1 [facility] Comment on above: Performed By: #### B MP ####[facility] Wakhddojra258[address] [place], [place] [address]Dr. Ivette Hernandez Sodium [Moles/Vol] 144 mmol/L Normal 136-145 [facility] Comment on above: Performed By: #### B MP ####[facility] Faqilpljia5[address] [place], [place] [address]Dr. Ivette Hernandez Urea nitrogen [Mass/Vol] 25.0 mg/dL Critically high 7.0-18.0 [facility] Comment on above: Performed By: #### B MP ####[facility] Avsvvckhib603[address] [place], [place] [address]Dr. Ivette David Urea nitrogen/Creatinine [Mass ratio] 17.7 mg/mg Normal [facility] Comment on above: Performed By: #### B MP ####[facility] Jevvmcdshw7879[address] [place], [place] [address]Dr. Ivette Hernandez VIT B12 AND FOLATEon 022 Cobalamin (Vitamin B12) [Mass/Vol] 769.0 pg/mL Normal 193.0-986.0 [facility] Comment on above: Performed By: #### B 12FOL, FETIBC ####[facility] Pzbarhxpiz65[address] [place], [place] [address]Dr. Ivette Hernandez FOLATE 22.60 ng/mL Normal 8.60-58.90 [facility] Comment on above: Performed By: #### B 12FOL, FETIBC ####[facility] Vrweyeikls4484 [place], [place] [address]Rh. Ivette Hernandez CARDIAC CANDACE 3-6on 2 CK [Catalytic activity/Vol] 38 U/L Normal 26-192 [facility] Comment on above: Performed By: #### C MREP ####[facility] Lhbrwhsghv2805 [place], [place] [address]Ip. Ivette Hernandez CK.MB [Mass/Vol] 0.75 ng/mL Normal <=3.60 [facility] Comment on above: Performed By: #### C MREP ####[facility] Xdbzqirvmh[address] [place] [phone]. Ivette Hernandez HSTROP 11.9 pg/mL Normal 4.0-51.3 [facility] Comment on above: Result Comment: CUT- OFF POINTS HAVE BEEN ESTABLISHED BASED ON THE FOURTH UNIVERSAL DEFINITIONS OF MYOCARDIALINFARCTION. THE UPPER REFERENCE LIMIT (URL) OF TROPONIN, DEFINED THE 99TH PERCENTILE OFcTnI DISTRIBUTION IN A REFERENCE POPULATION, HAS BEEN CONFIRMED THE DECISION THRESHOLDFOR [place] DIAGNOSIS. Performed By: #### C MREP ####[facility] Xfqeprjvij[address] [place] [phone]. Ivette Hernandez CK [Catalytic activity/Vol] 38 U/L Normal 26-192 [facility] Comment on above: Performed By: #### C MREP ####[facility] Cdgfbndsfi6[address] [place] [phone]. Ivette Hernandez CK.MB [Mass/Vol] 0.11 ng/mL Normal <=3.60 [facility] Comment on above: Performed By: #### C MREP ####[facility] Hdwyxqjfal0343 [place] [phone]. Ivette Hernandez HSTROP 11.5 pg/mL Normal 4.0-51.3 [facility] Comment on above: Result Comment: CUT- OFF POINTS HAVE BEEN ESTABLISHED BASED ON THE FOURTH UNIVERSAL DEFINITIONS OF MYOCARDIALINFARCTION. THE UPPER REFERENCE LIMIT (URL) OF TROPONIN, DEFINED THE 99TH PERCENTILE OFcTnI DISTRIBUTION IN A REFERENCE POPULATION, HAS BEEN CONFIRMED THE DECISION THRESHOLDFOR NC DIAGNOSIS. Performed By: #### C MREP ####[facility] Racfpuoxop35[address] [place] [phone]. Ivette David CBC AUTO DIFFon 04-10-2022 BASO # 0.0 103/ul Normal 0.0-0.1 [facility] Comment on above: Performed By: #### C BC ####[facility] Zvfycstaji92[address] [place], [place] [address]Dr. Cherjun Hernandez Basophils/100 WBC (Bld) 0.3 % Normal 0.2-2.0 [facility] Comment on above: Performed By: #### C BC ####[facility] Alozxmfprb450[address] [place], [place] [address]Dr. Cherjun Hernandez EO # 0.1 103/ul Normal 0.0-0.7 [facility] Comment on above: Performed By: #### C BC ####[facility] Ddslqaeatb0657[address] [place], [place] [address]Dr. Ivette Hernandez Eosinophils/100 WBC (Bld) 0.9 % Normal 0.9-7.0 [facility] Comment on above: Performed By: #### C BC ####[facility] Exzqrcfhcu2899[address] [place], [place] [address]Dr. Cherjun Hernandez Erythrocyte distribution width (RBC) [Ratio] 14.5 % Normal 11.0-15.0 [facility] Comment on above: Performed By: #### C BC ####[facility] Iutvlefmsi[address] [place], [place] [address]Dr. Cherjun Hernandez Hematocrit (Bld) [Volume fraction] 26.1 % Critically low 36.0-48.0 [facility] Comment on above: Performed By: #### C BC ####[facility] Dbnrdmjlio016[address] [place], [place] [address]Dr. Cherjun Hernandez Hemoglobin (Bld) [Mass/Vol] 8.0 g/dL Critically low 12.0-16.0 [facility] Comment on above: Performed By: #### C BC ####[facility] Moxyzqkqex006[address] [place], [place] [address]Dr. Ivette Hernandez IG # 0.03 10e3/ul Normal 0.00-0.03 [facility] Comment on above: Performed By: #### C BC ####[facility] Daxdydwunc[address] [place] [phone]. Ivette Hernandez IG % 0.4 % Normal 0.0-0.5 [facility] Comment on above: Performed By: #### C BC ####[facility] R[address]fgelgde[address] [place] [address]Dr. Ivette Hernandez LYMPH # 2.2 103/ul Normal 1.2-3.8 [facility] Comment on above: Performed By: #### C BC ####[facility] Njblkheojg7901[address] [place], [place] [address]Dr. Ivette David Lymphocytes/100 WBC (Bld) 29.3 % Normal 20.5-60.0 [facility] Comment on above: Performed By: #### C BC ####[facility] Bkswlgpamn7[address] [place], [place] [address]Dr. Cherjun Hernandez MANUAL DIFF REQ NO Normal [facility] Comment on above: Performed By: #### C BC ####[facility] Quoikuseuz[address] [place], [place] [address]Dr. Ivette Hernandez MCH (RBC) [Entitic mass] 28.4 pg Normal 26.7-34.0 [facility] Comment on above: Performed By: #### C BC ####[facility] Tlfbxiiots278[address] [place], [place] [address]Dr. Ivette Hernandez MCHC (RBC) [Mass/Vol] 30.7 g/dL Normal 29.9-35.2 [facility] Comment on above: Performed By: #### C BC ####[facility] Twpydelwon9617[address] [place], [place] [address]Dr. Ivette Hernandez MCV (RBC) [Entitic vol] 92.6 fL Normal 81.0-99.0 [facility] Comment on above: Performed By: #### C BC ####[facility] Xkqxubmunm[address] [place], [place] [address]Dr. Cherjun Hernandez MONO # 0.6 103/ul Normal 0.3-0.8 [facility] Comment on above: Performed By: #### C BC ####[facility] Ksroibazoc6[address] [place] [phone]. Ivette Hernandez Monocytes/100 WBC (Bld) 8.7 % Normal 1.7-12.0 [facility] Comment on above: Performed By: #### C BC ####[facility] Xeblksyoon76[address] [place] [phone]. Ivette Hernandez NEUT # 4.5 103/ul Normal 1.4-6.5 [facility] Comment on above: Performed By: #### C BC ####[facility] Jxknbhiqwl9219 [place] [phone]. Ivette Hernandez Neutrophils/100 WBC (Bld) 60.4 % Normal 43.0-75.0 [facility] Comment on above: Performed By: #### C BC ####[facility] Ftxtwwreck22[address] [place] [address]Dr. Ivette Hernandez Platelet mean volume (Bld) [Entitic vol] 9.8 fL Normal 9.5-13.5 [facility] Comment on above: Performed By: #### C BC ####[facility] Zjvehhjvdy4[address] [place] [phone]. Ivette Hernandez PLT 139 103/ul Critically low 150-450 [facility] Comment on above: Performed By: #### C BC ####[facility] Rucllkzrce7[address] [place] [phone]. Ivette Hernandez RBC 2.82 106/ul Critically low 4.20-5.40 [facility] Comment on above: Performed By: #### C BC ####[facility] J[address]ec[address]xf[address] [place], [place] [address]Dr. Ivette Hernandez WBC 7.4 103/ul Normal 4.0-11.0 [facility] Comment on above: Performed By: #### C BC ####[facility] S[address]qdowds[address] [place] [address]Dr. Ivette Hernandez CULTURE BLOODon 04-10-2022 Microscopic examination of blood, culture Culture Observations: NO GROWTH AT 5 DAYS. Normal [facility] Comment on above: Performed By: #### B LDCX2 ####[facility] V[address]wwidxkq[address] [place] [address]Dr. Ivette Hernandez Microscopic examination of blood, culture Culture Observations: NO GROWTH AT 5 DAYS. Normal [facility] Comment on above: Performed By: #### B LDCX1 ####[facility] Jkmyjlmtoz034[address] [place] [address]Dr. Ivette Hernandez Covid-19 PCR (CVDTB)on SARS-CoV-2 (COVID-19) RNA MARRY+probe Ql (Unsp spec) Not detected Normal NOT DETECTED [facility] Comment on above: Result Comment: When diagnostic [...] for this test is supported by the [place] of Health and Human Service's declaration that [...] be used). Performed By: #### C VDTBH ####[facility] Auvlwajqct6[address] [place], [place] [address]Dr. Ivette Hernandez ER URINE PROFILEon 2 Bilirubin Ql (U) Negative Normal NEGATIVE [facility] Comment on above: Performed By: #### SONNY MCKOY ####[facility] Odkwdgkaba2747[address] [place], [place] [address]Dr. Ivette Hernandez Clarity (U) CLEAR Normal CLEAR [facility] Comment on above: Performed By: #### SONNY MCKOY ####[facility] Ftqshxbfpg305[address] [place], [place] [address]Dr. Ivette Hernandez Color (U) YELLOW Normal YELLOW [facility] Comment on above: Performed By: #### FILIPE MCKOYICRO ####[facility] Atwbrpodpq4[address] [place] [address]Dr. Cherjun Hernandez ERUAHD A micrscopic examination will be performed if indicated. Normal [facility] Comment on above: Performed By: #### Ata RONDON UMICRO ####[facility] Trynyzjcwf47[address] [place] [address]Dr. Ivette Hernandez Glucose Ql (U) Negative Normal NEGATIVE [facility] Comment on above: Performed By: #### Ata RONDON UMICRO ####[facility] Ajwqtujwez0114[address] [place], [place] [address]Dr. Ivette David Hemoglobin Ql (U) MODERATE Abnormal NEGATIVE [facility] Comment on above: Performed By: #### Ata RONDON UMICRO ####[facility] Cacxaogfca[address] [place], [place] [address]Dr. Ivette Hernandez Ketones Ql (U) TRACE Abnormal NEGATIVE [facility] Comment on above: Performed By: #### Ata RONDON UMICRO ####[facility] Xczckcdyds768[address] [place], [place] [address]Dr. Cherjun Hernandez LEUKOCYTES MODERATE Abnormal NEGATIVE [facility] Comment on above: Performed By: #### Ata RONDON UMICRO ####[facility] Xqoewnoijx256[address] [place], [place] [address]Dr. Ivette Hernandez Nitrite Ql (U) Negative Normal NEGATIVE [facility] Comment on above: Performed By: #### Ata RONDON UMICRO ####[facility] Ddxrmbwstm5[address] [place] [address]Dr. Ivette Hernandez pH (U) 7.0 [pH] Normal 5-9 [facility] Comment on above: Performed By: #### Ata RONDON UMICRO ####[facility] Otakhspvxx88[address] [place], [place] [address]Dr. Ivette Hernandez SPEC GRAVITY 1.020 Normal 1.005-<=1.025 [facility] Comment on above: Performed By: #### SONNY MCKOY ####[facility] Kycuskurrf[address] [place] [address]Dr. Ivette Hernandez UA PROTEIN >300 Abnormal NEGATIVE/ TRACE [facility] Comment on above: Performed By: #### SONNY MCKOY ####[facility] Husvdcbyfv24[address] [place] [address]Dr. Ivette Hernandez UR MICRO IND INDICATED Normal [facility] Comment on above: Performed By: #### SONNY MCKOY ####[facility] Xrzozqfvee37[address] [place] [address]Dr. Ivette Hernandez Urobilinogen Qn (U) 0.2 {Mack'U}/dL Normal 0.2 - 1. 0 [facility] Comment on above: Performed By: #### SONNY MCKOY ####[facility] Noluxocduu[address] [place] [address]Dr. Ivette Hernandez POINT OF CARE GLUCOSEon Glucose [Mass/Vol] 164 mg/dL Critically high [address] [place] [address] Comment on above: Performed By: #### P OCGLUC ####[facility] Crhsorvlja[address] [place], [place] [address]Dr. Ivette Hernandez Glucose [Mass/Vol] 123 mg/dL Critically high [address] [place] [address] Comment on above: Performed By: #### P OCGLUC ####[facility] Iphwchatrb60[address] [place], [place] [address]Dr. Ivette Hernandez Glucose [Mass/Vol] 115 mg/dL Critically high [address] [place] [address] Comment on above: Performed By: #### P OCGLUC ####[facility] Binddiiijo43[address] [place], [place] [address]Dr. Ivette Hernandez PROF CHEM 8 (BAS METB)on Anion gap [Moles/Vol] 11.8 mmol/L Normal [facility] Comment on above: Performed By: #### B MP ####[facility] Josawiqjwd8859[address] [place], [place] [address]Dr. Ivette Hernandez Calcium [Mass/Vol] 6.5 mg/dL Critically low 8.5-10.1 [facility] Comment on above: Performed By: #### B MP ####[facility] Vpobkdnibv96[address] [place] [address]Dr. Ivette Hernandez Chloride [Moles/Vol] 108 mmol/L Critically high 98-107 [facility] Comment on above: Performed By: #### B MP ####[facility] Ibbzsdsdrs[address] [place], [place] [address]Dr. Ivette Hernandez CO2 [Moles/Vol] 29.2 mmol/L Normal 21.0-32.0 [facility] Comment on above: Performed By: #### B MP ####[facility] Eqgvrnobup808[address] [place], [place] [address]Dr. Ivette Hernandez Creatinine [Mass/Vol] 1.61 mg/dL Critically high 0.55-1.02 [facility] Comment on above: Performed By: #### B MP ####[facility] Vnmulrrala250[address] [place], [place] [address]Dr. Ivette Hernandez EGFR-AF MOSOTHO 38 mL/min/1.73m2 Critically low >=60 [facility] Comment on above: Performed By: #### B MP ####[facility] Lhrwiocbbn3567[address] [place], [place] [address]Dr. Ivette Hernandez EGFR-NON AF MOSOTHO 31 mL/min/1.73m2 Critically low >=60 [facility] Comment on above: Performed By: #### B MP ####[facility] Mnpkucfavo944[address] [place], [place] [address]Dr. Ivette Hernandez Glucose [Mass/Vol] 107 mg/dL Critically high 74-106 [facility] Comment on above: Performed By: #### B MP ####[facility] Spshbhcnds[address] [place], [place] [address]Dr. Ivette Hernandez Potassium [Moles/Vol] 4.0 mmol/L Normal 3.5-5.1 [facility] Comment on above: Performed By: #### B MP ####[facility] Wfijdoqimu054[address] [place], [place] [address]Dr. Ivette Hernandez Sodium [Moles/Vol] 145 mmol/L Normal 136-145 [facility] Comment on above: Performed By: #### B MP ####[facility] Cilxnthstr2[address] [place], [place] [address]Dr. Ivette Hernandez Urea nitrogen [Mass/Vol] 23.0 mg/dL Critically high 7.0-18.0 [facility] Comment on above: Performed By: #### B MP ####[facility] Jdvoghzbpt803[address] [place], [place] [address]Dr. Ivette Hernandez Urea nitrogen/Creatinine [Mass ratio] 14.3 mg/mg Normal [facility] Comment on above: Performed By: #### B MP ####[facility] Vwblqdnldf708[address] [place], [place] [address]Dr. Ivette Hernandez URINE MICROSCOPIC ONLYon BACTERIA MODERATE Abnormal NONE SEEN [facility] Comment on above: Performed By: #### Ata RONDON UMICRO ####[facility] Lclfeyjtit914[address] [place], [place] [address]Dr. Ivette Hernandez Bacteria identified Cx Nom (U) INDICATED Normal [facility] Comment on above: Performed By: #### Ata RONDON UMICRO ####[facility] Xwvjhjhzib[address] [place], [place] [address]Dr. Ivette Hernandez CAST NONE SEEN Normal NONE SEEN [facility] Comment on above: Performed By: #### Ata RONDON UMICRO ####[facility] Nwehghlqgi325[address] [place], [place] [address]Dr. Ivette Hernandez Crystals LM Nom (Urine sed) NONE SEEN Normal NONE SEEN [facility] Comment on above: Performed By: #### Ata RONDON UMICRO ####[facility] Grelxjfvsf627[address] [place], [place] [address]Dr. Ivette Hernandez Epithelial cells LM Ql (Urine sed) RARE Normal NONE SEEN /RARE [facility] Comment on above: Performed By: #### Ata RONDON UMICRO ####[facility] Exulilbbff767[address] [place], [place] [address]Dr. Ivette Hernandez MUCOUS NONE SEEN Normal NONE SEEN [facility] Comment on above: Performed By: #### SONNY MCKOY ####[facility] Lbraivuuzj50[address] [place] [phone]. Ivette Hernandez RBC NONE SEEN Abnormal 0-2 [facility] Comment on above: Performed By: #### SONNY MCKOY ####[facility] Hngpodwsnr7857 [place] [phone]. Ivette Hernandez WBC 20-50 Abnormal NONE SEEN [facility] Comment on above: Performed By: #### SONNY MCKOY ####[facility] Gqnroallbv4765 [place] [phone]. Ivette Hernandez XR CHEST 1 Von 04-10-2022 XR CHEST 1 V Normal [facility] CARDIAC CANDACE ADMITon 022 CK [Catalytic activity/Vol] 37 U/L Normal 26-192 [facility] Comment on above: Performed By: #### MYRNA ORTIZ ####[facility] Petewihqxo97[address] [place] [address]Dr. Ivette Hernandez CK.MB [Mass/Vol] 0.14 ng/mL Normal <=3.60 [facility] Comment on above: Performed By: #### MYRNA ORTIZ ####[facility] Suuvxtagbb13[address] [place], [place] [address]Dr. Ivette Hernandez HSTROP 11.0 pg/mL Normal 4.0-51.3 [facility] Comment on above: Result Comment: CUT- OFF POINTS HAVE BEEN ESTABLISHED BASED ON THE FOURTH UNIVERSAL DEFINITIONS OF MYOCARDIALINFARCTION. THE UPPER REFERENCE LIMIT (URL) OF TROPONIN, DEFINED THE 99TH PERCENTILE OFcTnI DISTRIBUTION IN A REFERENCE POPULATION, HAS BEEN CONFIRMED THE DECISION THRESHOLDFOR [place] DIAGNOSIS. Performed By: #### Daren PEREYRA, BMP ####[facility] Cufqiygglb[address] [place] [address]Dr. Ivette Hernandez CARMITA 1 ng/mL Critically low 9-82 [facility] Comment on above: Performed By: #### Daren PEREYRA, BMP ####[facility] Lsdpmmtwrc04[address] [place] [address]Dr. Ivette Hernandez CBC AUTO DIFFon 04-09-2022 BASO # 0.0 103/ul Normal 0.0-0.1 [facility] Comment on above: Performed By: #### C BC ####[facility] Cuerghpfjp85[address] [place], [place] [address]Dr. Ivette Hernandez Basophils/100 WBC (Bld) 0.2 % Normal 0.2-2.0 [facility] Comment on above: Performed By: #### C BC ####[facility] Gzailkryjp774[address] [place], [place] [address]DrJesse Hernandez EO # 0.0 103/ul Normal 0.0-0.7 [facility] Comment on above: Performed By: #### C BC ####[facility] Ktfsakszgj[address] [place], [place] [address]Dr. Ivette Hernandez Eosinophils/100 WBC (Bld) 0.5 % Critically low 0.9-7.0 [facility] Comment on above: Performed By: #### C BC ####[facility] Brzidclodq6499[address] [place], [place] [address]Dr. Ivette Hernandez Erythrocyte distribution width (RBC) [Ratio] 14.6 % Normal 11.0-15.0 [facility] Comment on above: Performed By: #### C BC ####[facility] Hfwgmmntty9219[address] [place], [place] [address]Dr. Ivette Hernandez Hematocrit (Bld) [Volume fraction] 27.0 % Critically low 36.0-48.0 [facility] Comment on above: Performed By: #### C BC ####[facility] Irzdepuyft[address] [place], [place] [address]DrJesse Hernandez Hemoglobin (Bld) [Mass/Vol] 8.5 g/dL Critically low 12.0-16.0 [facility] Comment on above: Performed By: #### C BC ####[facility] Fxhohumvrz37[address] [place], [place] [address]DrJesse Hernandez IG # 0.02 10e3/ul Normal 0.00-0.03 [facility] Comment on above: Performed By: #### C BC ####[facility] Azbdqgwymu586[address] [place], [place] [address]Dr. Ivette Hernandez IG % 0.2 % Normal 0.0-0.5 [facility] Comment on above: Performed By: #### C BC ####[facility] Eewkvtotkt20[address] [place] [address]DrJesse Hernandez LYMPH # 1.4 103/ul Normal 1.2-3.8 [facility] Comment on above: Performed By: #### C BC ####[facility] Xcgvzwlves9726 [place] [address]DrJesse Hernandez Lymphocytes/100 WBC (Bld) 17.2 % Critically low 20.5-60.0 [facility] Comment on above: Performed By: #### C BC ####[facility] Upoplosvzs734[address] [place], [place] [address]DrJesse Hernandez MANUAL DIFF REQ NO Normal [facility] Comment on above: Performed By: #### C BC ####[facility] Fiarufucbw414[address] [place], [place] [address]DrJesse Hernandez MCH (RBC) [Entitic mass] 28.7 pg Normal 26.7-34.0 [facility] Comment on above: Performed By: #### C BC ####[facility] Hzivdgtfwx913[address] [place], [place] [address]DrJesse Hernandez MCHC (RBC) [Mass/Vol] 31.5 g/dL Normal 29.9-35.2 [facility] Comment on above: Performed By: #### C BC ####[facility] Azxaclyyry76[address] [place], [place] [address]DrJesse Hernandez MCV (RBC) [Entitic vol] 91.2 fL Normal 81.0-99.0 [facility] Comment on above: Performed By: #### C BC ####[facility] Wfdtkkhrna007[address] [place], [place] [address]DrJesse Hernandez MONO # 0.5 103/ul Normal 0.3-0.8 [facility] Comment on above: Performed By: #### C BC ####[facility] Ywmzfuhsxb3357[address] [place], [place] [address]DrJesse Hernandez Monocytes/100 WBC (Bld) 6.5 % Normal 1.7-12.0 [facility] Comment on above: Performed By: #### C BC ####[facility] Hdoemnmrza12[address] [place] [address]Dr. Ivette Hernandez NEUT # 6.3 103/ul Normal 1.4-6.5 [facility] Comment on above: Performed By: #### C BC ####[facility] Ktnelpkdmo34[address] [place] [address]Dr. Ivette Hernandez Neutrophils/100 WBC (Bld) 75.4 % Critically high 43.0-75.0 [facility] Comment on above: Performed By: #### C BC ####[facility] Csuimhzjhz7[address] [place], [place] [address]DrJesse Hernandez Platelet mean volume (Bld) [Entitic vol] 9.8 fL Normal 9.5-13.5 [facility] Comment on above: Performed By: #### C BC ####[facility] Lnvrcrweer[address] [place], [place] [address]Dr. Ivette Hernandez PLT 158 103/ul Normal 150-450 [facility] Comment on above: Performed By: #### C BC ####[facility] Lyqykevunw[address] [place], [place] [address]DrJesse Hernandez RBC 2.96 106/ul Critically low 4.20-5.40 [facility] Comment on above: Performed By: #### C BC ####[facility] Bkcerzktwh[address] [place], [place] [address]DrJesse Hernandez WBC 8.4 103/ul Normal 4.0-11.0 [facility] Comment on above: Performed By: #### C BC ####[facility] Hklzsyzfcv399[address] [place], [place] [address]DrJesse Hernandez LACTATE/LACTIC ACIDon 2021 Lactate [Moles/Vol] 0.9 mmol/L Normal 0.4-1.9 [facility] Comment on above: Performed By: #### L ACT ####[facility] Deslldurxz797[address] [place], [place] [address]DrJesse Hernandez PROF CHEM 8 (BAS METB)on Anion gap [Moles/Vol] 8.8 mmol/L Normal [facility] Comment on above: Performed By: #### Daren PEREYRA, BMP ####[facility] Ojjcorarcv785[address] [place], [place] [address]Dr. Ivette Hernandez Calcium [Mass/Vol] 6.9 mg/dL Critically low 8.5-10.1 Th [facility] Comment on above: Performed By: #### C RODDY, BMP ####[facility] Cubnpgmzqm709[address] [place], [place] [address]Dr. Ivette Hernandez Chloride [Moles/Vol] 105 mmol/L Normal 98-107 [facility] Comment on above: Performed By: #### Daren PEREYRA, BMP ####[facility] Lbpignigbg487[address] [place], [place] [address]Dr. Ivette Hernandez CO2 [Moles/Vol] 28.1 mmol/L Normal 21.0-32.0 [facility] Comment on above: Performed By: #### Daren PEREYRA, BMP ####[facility] Muhlbpudxw153[address] [place], [place] [address]Dr. Ivette Hernandez Creatinine [Mass/Vol] 1.77 mg/dL Critically high 0.55-1.02 [facility] Comment on above: Performed By: #### Daren PEREYRA, BMP ####[facility] Wpmpecefii7207[address] [place], [place] [address]Dr. Ivette Hernandez EGFR-AF MOSOTHO 34 mL/min/1.73m2 Critically low >=60 [facility] Comment on above: Performed By: #### C RODDY, BMP ####[facility] Ufchddseav7718[address] [place], [place] [address]Dr. Ivette Hernandez EGFR-NON AF MOSOTHO 28 mL/min/1.73m2 Critically low >=60 [facility] Comment on above: Performed By: #### Daren PEREYRA, BMP ####[facility] Knsgpqnzkl430[address] [place], [place] [address]Dr. Ivette Hernandez Glucose [Mass/Vol] 130 mg/dL Critically high 74-106 [facility] Comment on above: Performed By: #### C RODDY, BMP ####[facility] Nlkmobnqnf199[address] [place], [place] [address]Dr. Ivette Hernandez Potassium [Moles/Vol] 3.9 mmol/L Normal 3.5-5.1 [facility] Comment on above: Performed By: #### C RODDY, BMP ####[facility] Vhjmqlxdzs9507[address] [place], [place] [address]Dr. Ivette Hernandez Sodium [Moles/Vol] 138 mmol/L Normal 136-145 [facility] Comment on above: Performed By: #### C RODDY, BMP ####[facility] Fcegxxvkpy168[address] [place], [place] [address]Dr. Ivette Hernanedz Urea nitrogen [Mass/Vol] 25.0 mg/dL Critically high 7.0-18.0 [facility] Comment on above: Performed By: #### C RODDY, BMP ####[facility] Icoknjtllo80000[address] [place], [place] [address]Dr. Ivette Hernandez Urea nitrogen/Creatinine [Mass ratio] 14.1 mg/mg Normal [facility] Comment on above: Performed By: #### C RODDY, BMP ####[facility] Ycjrougfvy599[address] [place], [place] [address]Dr. Ivette Hernandez AMMONIAon 03-10-2022 Ammonia (P) [Moles/Vol] 12 umol/L Normal 11-32 [facility] Comment on above: Performed By: #### A MM ####[facility] Soanxzvbtk1977[address] [place], [place] [address]Dr. Ivette Hernandez BNPon 03-10-2022 Natriuretic peptide B (Bld) [Mass/Vol] 9132.0 pg/mL Critically high <=900.0 [facility] Comment on above: Performed By: #### M G, CMP, PHOS, BNP ####[facility] Wiespjkkyi[address] [place], [place] [address]Dr. Ivette Hernandez CBC AUTO DIFFon 03-10-2022 BASO # 0.0 103/ul Normal 0.0-0.1 [facility] Comment on above: Performed By: #### C BC ####[facility] Qfqziscdub1660 [place] [id number]. Ivette Hernandez Basophils/100 WBC (Bld) 0.3 % Normal 0.2-2.0 [facility] Comment on above: Performed By: #### C BC ####[facility] Xtgobeiwlm[address] [place], [place] [address]Dr. Ivette Hernandez EO # 0.3 103/ul Normal 0.0-0.7 [facility] Comment on above: Performed By: #### C BC ####[facility] Zdwaakvdzz499[address] [place], [place] [address]Dr. Ivette Hernandez Eosinophils/100 WBC (Bld) 3.2 % Normal 0.9-7.0 [facility] Comment on above: Performed By: #### C BC ####[facility] Xenckotfnc070[address] [place], [place] [address]Dr. Ivette Hernandez Erythrocyte distribution width (RBC) [Ratio] 14.3 % Normal 11.0-15.0 [facility] Comment on above: Performed By: #### C BC ####[facility] Vyxmisywsv078[address] [place], [place] [address]Dr. Ivette Hernandez Hematocrit (Bld) [Volume fraction] 25.5 % Critically low 36.0-48.0 [facility] Comment on above: Performed By: #### C BC ####[facility] Vunvujjooj742[address] [place], [place] [address]Dr. Ivette Hernandez Hemoglobin (Bld) [Mass/Vol] 8.0 g/dL Critically low 12.0-16.0 [facility] Comment on above: Performed By: #### C BC ####[facility] Bixwpspuko0617[address] [place], [place] [address]Dr. Ivette Hernandez IG # 0.05 10e3/ul Critically high 0.00-0.03 [facility] Comment on above: Performed By: #### C BC ####[facility] Rtbbmglahr134[address] [place], [place] [address]Dr. Ivette Hernandez IG % 0.6 % Critically high 0.0-0.5 [facility] Comment on above: Performed By: #### C BC ####[facility] Spdryufmmb1493 [place] [phone]. Ivette Hernandez LYMPH # 1.9 103/ul Normal 1.2-3.8 [facility] Comment on above: Performed By: #### C BC ####[facility] Azaxbmvmka5569 [place] [phone]. Ivette David Lymphocytes/100 WBC (Bld) 20.8 % Normal 20.5-60.0 [facility] Comment on above: Performed By: #### C BC ####[facility] Gwyskznhtf21[address] [place] [address]Dr. Ivette David MANUAL DIFF REQ NO Normal [facility] Comment on above: Performed By: #### C BC ####[facility] Qnophpzoxv163[address] [place], [place] [address]Dr. Ivette David MCH (RBC) [Entitic mass] 28.7 pg Normal 26.7-34.0 [facility] Comment on above: Performed By: #### C BC ####[facility] Pixhpmravs708[address] [place], [place] [address]Dr. Ivette Hernandez MCHC (RBC) [Mass/Vol] 31.4 g/dL Normal 29.9-35.2 [facility] Comment on above: Performed By: #### C BC ####[facility] Drbktoxqom8656 [place] [phone]. Ivette David MCV (RBC) [Entitic vol] 91.4 fL Normal 81.0-99.0 [facility] Comment on above: Performed By: #### C BC ####[facility] Wmgjqsobgx[address] [place], [place] [address]Dr. Ivette Hernandez MONO # 0.5 103/ul Normal 0.3-0.8 [facility] Comment on above: Performed By: #### C BC ####[facility] Sagmqgoscr7994 [place] [phone]. Ivette David Monocytes/100 WBC (Bld) 5.6 % Normal 1.7-12.0 [facility] Comment on above: Performed By: #### C BC ####[facility] Hsppxiypgw0961 [place] [phone]. Ivette Hernandez NEUT # 6.2 103/ul Normal 1.4-6.5 [facility] Comment on above: Performed By: #### C BC ####[facility] Sdzvyjyzbw8936 [place] [phone]. Ivette Hernandez Neutrophils/100 WBC (Bld) 69.5 % Normal 43.0-75.0 [facility] Comment on above: Performed By: #### C BC ####[facility] Wxneiqrecl9174 [place] [address]Dr. Ivette Hernandez Platelet mean volume (Bld) [Entitic vol] 9.3 fL Critically low 9.5-13.5 [facility] Comment on above: Performed By: #### C BC ####[facility] Dygwmzjnss8996 [place] [address]Dr. Ivette Hernandez PLT 213 103/ul Normal 150-450 [facility] Comment on above: Performed By: #### C BC ####[facility] Uscntnnzjg[address] [place], [place] [address]Dr. Ivette Hernandez RBC 2.79 106/ul Critically low 4.20-5.40 [facility] Comment on above: Performed By: #### C BC ####[facility] Lwdnjucvud[address] [place], [place] [address]Dr. Ivette Hernandez WBC 8.9 103/ul Normal 4.0-11.0 [facility] Comment on above: Performed By: #### C BC ####[facility] Hgkvnmimti[address] [place], [place] [address]Dr. Ivette Hernandez MAGNESIUMon 03-10-2022 Magnesium [Mass/Vol] 1.9 mg/dL Normal 1.8-2.4 [facility] Comment on above: Performed By: #### M G, CMP, PHOS, BNP ####[facility] Vvdanlxsgh0212 [place] [phone]. Ivette Hernandez PHOSPHORUSon 03-10-2022 Phosphate [Mass/Vol] 3.8 mg/dL Normal 2.6-4.7 [facility] Comment on above: Performed By: #### M G, CMP, PHOS, BNP ####[facility] Veytihrdwk4358 [place] [address]Dr. Ivette Hernandez PROF 14(COMP METB)on 022 Albumin [Mass/Vol] 2.3 g/dL Critically low 3.4-5.0 Th e [facility] Comment on above: Performed By: #### M G, CMP, PHOS, BNP ####[facility] Aqkyfabnfv80[address] [place], [place] [address]Dr. Ivette Hernandez Albumin/Globulin [Mass ratio] 0.6 {ratio} Normal [facility] Comment on above: Performed By: #### M G, CMP, PHOS, BNP ####[facility] Iascxcymnn436[address] [place], [place] [address]Dr. Ivette Hernandez ALP [Catalytic activity/Vol] 64 U/L Normal 46-116 [facility] Comment on above: Performed By: #### M G, CMP, PHOS, BNP ####[facility] Qanbyvvlrp811[address] [place], [place] [address]Dr. Ivette Hernandez ALT [Catalytic activity/Vol] 14 U/L Normal 14-59 [facility] Comment on above: Performed By: #### M G, CMP, PHOS, BNP ####[facility] Ltmldfueni1890 [place] [address]Dr. Ivette Hernandez Anion gap [Moles/Vol] 3.4 mmol/L Normal [facility] Comment on above: Performed By: #### M G, CMP, PHOS, BNP ####[facility] Grhxgieyha996[address] [place], [place] [address]Dr. Ivette Hernandez AST [Catalytic activity/Vol] 20 U/L Normal 15-37 [facility] Comment on above: Performed By: #### M G, CMP, PHOS, BNP ####[facility] Xbmnmfuviw277[address] [place], [place] [address]Dr. Ivette Hernandez Bilirubin [Mass/Vol] 0.3 mg/dL Normal 0.2-1.0 [facility] Comment on above: Performed By: #### M G, CMP, PHOS, BNP ####[facility] Dbxlfajioo6232 [place] [address]Dr. Ivette Hernandez Calcium [Mass/Vol] 8.3 mg/dL Critically low 8.5-10.1 [facility] Comment on above: Performed By: #### M G, CMP, PHOS, BNP ####[facility] Oivucmoobe2835 [place] [address]Dr. Ivette Hernadnez Chloride [Moles/Vol] 100 mmol/L Normal 98-107 [facility] Comment on above: Performed By: #### M G, CMP, PHOS, BNP ####[facility] Gzlfhijuzv727[address] [place], [place] [address]Dr. Ivette Hernandez CO2 [Moles/Vol] 38.3 mmol/L Critically high 21.0-32.0 [facility] Comment on above: Performed By: #### M G, CMP, PHOS, BNP ####[facility] Ympdjzdwlk246[address] [place], [place] [address]Dr. Ivette Hernandez Creatinine [Mass/Vol] 1.50 mg/dL Critically high 0.55-1.02 [facility] Comment on above: Performed By: #### M G, CMP, PHOS, BNP ####[facility] Yipwazubxp5878 [place] [address]Dr. Ivette Hernandez EGFR-AF MOSOTHO 41 mL/min/1.73m2 Critically low >=60 [facility] Comment on above: Performed By: #### M G, CMP, PHOS, BNP ####[facility] Jrcyrslroc295[address] [place], [place] [address]Dr. Ivette Hernandez EGFR-NON AF MOSOTHO 34 mL/min/1.73m2 Critically low >=60 [facility] Comment on above: Performed By: #### M G, CMP, PHOS, BNP ####[facility] Cqtbxgifbt7969 [place] [address]Dr. Ivette Hernandez Globulin (S) [Mass/Vol] 4.1 g/dL Normal [facility] Comment on above: Performed By: #### M G, CMP, PHOS, BNP ####[facility] Mddmvkulaj3718 [place] [address]Dr. Ivette Hernandez Glucose [Mass/Vol] 114 mg/dL Critically high 74-106 [facility] Comment on above: Performed By: #### M G, CMP, PHOS, BNP ####[facility] Igbukfghjk4162 [place] [address]Dr. Ivette Hernandez Potassium [Moles/Vol] 3.7 mmol/L Normal 3.5-5.1 [facility] Comment on above: Performed By: #### M G, CMP, PHOS, BNP ####[facility] Anwdnbqxpu727[address] [place], [place] [address]Dr. Ivette Hernandez Protein [Mass/Vol] 6.4 g/dL Normal 6.4-8.2 [facility] Comment on above: Performed By: #### M G, CMP, PHOS, BNP ####[facility] Nlpotnnmgr67350[address] [place], [place] [address]Dr. Ivette Hernandez Sodium [Moles/Vol] 138 mmol/L Normal 136-145 [facility] Comment on above: Performed By: #### M G, CMP, PHOS, BNP ####[facility] Ojlcxqtfwt405[address] [place], [place] [address]Dr. Ivette Hernandez Urea nitrogen [Mass/Vol] 20.0 mg/dL Critically high 7.0-18.0 [facility] Comment on above: Performed By: #### M G, CMP, PHOS, BNP ####[facility] Rhkpsmrqun3237[address] [place], [place] [address]Dr. Ivette Hernandez Urea nitrogen/Creatinine [Mass ratio] 13.3 mg/mg Normal [facility] Comment on above: Performed By: #### M G, CMP, PHOS, BNP ####[facility] Omqhnirkin[address] [place], [place] [address]Dr. Ivette Hernandez AMMONIAon 03-09-2022 Ammonia (P) [Moles/Vol] 15 umol/L Normal 11-32 [facility] Comment on above: Performed By: #### A MM ####[facility] Mmwjkzmtzf4191 [place] [address]Dr. Ivette Hernandez BNPon 03-09-2022 Natriuretic peptide B (Bld) [Mass/Vol] 22104.0 pg/mL Critically high <=900.0 [facility] Comment on above: Performed By: #### B CELL INSTALLER, PHOS, MG, CMP ####[facility] Uomqypjzul623[address] [place], [place] [address]Dr. Ivette Hernandez CBC AUTO DIFFon 03-09-2022 BASO # 0.0 103/ul Normal 0.0-0.1 [facility] Comment on above: Performed By: #### C BC ####[facility] Ticybdstou816[address] [place], [place] [address]Dr. Ivette Hernandez Basophils/100 WBC (Bld) 0.5 % Normal 0.2-2.0 [facility] Comment on above: Performed By: #### C BC ####[facility] Jadyihhqdu27360[address] [place], [place] [address]Dr. Ivette Hernandez EO # 0.2 103/ul Normal 0.0-0.7 [facility] Comment on above: Performed By: #### C BC ####[facility] Qamhzrockg434[address] [place], [place] [address]Dr. Ivette Hernandez Eosinophils/100 WBC (Bld) 2.6 % Normal 0.9-7.0 [facility] Comment on above: Performed By: #### C BC ####[facility] Uhddpusqnm778[address] [place], [place] [address]Dr. Ivette Hernandez Erythrocyte distribution width (RBC) [Ratio] 14.2 % Normal 11.0-15.0 [facility] Comment on above: Performed By: #### C BC ####[facility] Nqtuptrbeo988[address] [place], [place] [address]Dr. Ivette Hernandez Hematocrit (Bld) [Volume fraction] 26.7 % Critically low 36.0-48.0 [facility] Comment on above: Performed By: #### C BC ####[facility] Ypwbqsosur246[address] [place], [place] [address]Dr. Ivette Hernandez Hemoglobin (Bld) [Mass/Vol] 8.3 g/dL Critically low 12.0-16.0 [facility] Comment on above: Performed By: #### C BC ####[facility] Bwwqzjxkhr4751 [place] [address]DrJesse Hernandez IG # 0.05 10e3/ul Critically high 0.00-0.03 [facility] Comment on above: Performed By: #### C BC ####[facility] Jjxvpuzalr5173 [place] [address]DrJesse Hernandez IG % 0.7 % Critically high 0.0-0.5 [facility] Comment on above: Performed By: #### C BC ####[facility] Sxpjabfryp[address] [place], [place] [address]DrJesse Hernandez LYMPH # 1.4 103/ul Normal 1.2-3.8 [facility] Comment on above: Performed By: #### C BC ####[facility] Rfyyfsjoki38[address] [place], [place] [address]DrJesse Hernandez Lymphocytes/100 WBC (Bld) 17.6 % Critically low 20.5-60.0 [facility] Comment on above: Performed By: #### C BC ####[facility] Dsgpqymcya1767[address] [place], [place] [address]DrJesse Hernandez MANUAL DIFF REQ NO Normal [facility] Comment on above: Performed By: #### C BC ####[facility] Zlkwexwqeu433[address] [place], [place] [address]DrJesse Hernandez MCH (RBC) [Entitic mass] 28.6 pg Normal 26.7-34.0 [facility] Comment on above: Performed By: #### C BC ####[facility] Xvbxykdqfl0203 [place] [address]DrJesse Hernandez MCHC (RBC) [Mass/Vol] 31.1 g/dL Normal 29.9-35.2 [facility] Comment on above: Performed By: #### C BC ####[facility] Ioozwkmliv2320 [place] [address]DrJesse Hernandez MCV (RBC) [Entitic vol] 92.1 fL Normal 81.0-99.0 [facility] Comment on above: Performed By: #### C BC ####[facility] Pyerqlmqbp0444 [place] [address]DrJesse Hernandez MONO # 0.5 103/ul Normal 0.3-0.8 [facility] Comment on above: Performed By: #### C BC ####[facility] Yexmsmslwp1629 [place] [address]DrJesse Hernandez Monocytes/100 WBC (Bld) 6.2 % Normal 1.7-12.0 [facility] Comment on above: Performed By: #### C BC ####[facility] Gugxezlnpb955[address] [place], [place] [address]DrJesse Hernandez NEUT # 5.6 103/ul Normal 1.4-6.5 [facility] Comment on above: Performed By: #### C BC ####[facility] Pmgqqptrsv5789[address] [place], [place] [address]DrJesse Hernandez Neutrophils/100 WBC (Bld) 72.4 % Normal 43.0-75.0 [facility] Comment on above: Performed By: #### C BC ####[facility] Gdwrisjsvk9357[address] [place], [place] [address]DrJesse Hernandez Platelet mean volume (Bld) [Entitic vol] 9.6 fL Normal 9.5-13.5 [facility] Comment on above: Performed By: #### C BC ####[facility] Oxdhvvndsh1919[address] [place], [place] [address]Dr. Ivette Hernandez PLT 233 103/ul Normal 150-450 [facility] Comment on above: Performed By: #### C BC ####[facility] Mlfzrjjyhg[address] [place], [place] [address]DrJesse Hernandez RBC 2.90 106/ul Critically low 4.20-5.40 [facility] Comment on above: Performed By: #### C BC ####[facility] Zzfupeckwm8752 [place] [phone] Hernandez WBC 7.7 103/ul Normal 4.0-11.0 [facility] Comment on above: Performed By: #### C BC ####[facility] Tfawsjdqet4622 [place] [phone]. Ivette Hernandez BASO # 0.0 103/ul Normal 0.0-0.1 [facility] Comment on above: Performed By: #### C BC ####[facility] Ecweympnmh0390 [place] [phone]. Ivette David Basophils/100 WBC (Bld) 0.5 % Normal 0.2-2.0 [facility] Comment on above: Performed By: #### C BC ####[facility] Fxjzctiemk4415[address] [place], [place] [address]Dr. Ivette David EO # 0.2 103/ul Normal 0.0-0.7 [facility] Comment on above: Performed By: #### C BC ####[facility] Dtdbzuvgwh9499[address] [place], [place] [address]Dr. Cherjun Hernandez Eosinophils/100 WBC (Bld) 2.8 % Normal 0.9-7.0 [facility] Comment on above: Performed By: #### C BC ####[facility] Ftsjpxbhcu935[address] [place], [place] [address]Dr. Ivette Hernandez Erythrocyte distribution width (RBC) [Ratio] 14.3 % Normal 11.0-15.0 [facility] Comment on above: Performed By: #### C BC ####[facility] Wsygpbsuwl901[address] [place], [place] [address]Dr. Ivette Hernandez Hematocrit (Bld) [Volume fraction] 25.2 % Critically low 36.0-48.0 [facility] Comment on above: Performed By: #### C BC ####[facility] Ivliuysdwj024[address] [place], [place] [address]Dr. Cherjun Hernandez Hemoglobin (Bld) [Mass/Vol] 7.8 g/dL Critically low 12.0-16.0 [facility] Comment on above: Performed By: #### C BC ####[facility] Eddwgtovzg414[address] [place], [place] [address]Dr. Ivette Hernandez IG # 0.02 10e3/ul Normal 0.00-0.03 [facility] Comment on above: Performed By: #### C BC ####[facility] Hyalksnnuq3415 [place] [address]DrJesse Cherjun Hernandez IG % 0.3 % Normal 0.0-0.5 [facility] Comment on above: Performed By: #### C BC ####[facility] Vtpgchbvbz7057 [place] [address]DrJesse Ivette David LYMPH # 1.6 103/ul Normal 1.2-3.8 [facility] Comment on above: Performed By: #### C BC ####[facility] Ztdujxwfbv914[address] [place], [place] [address]DrJesse Cherjun Hernandez Lymphocytes/100 WBC (Bld) 24.5 % Normal 20.5-60.0 [facility] Comment on above: Performed By: #### C BC ####[facility] Yydyszwomx98[address] [place], [place] [address]DrJesse Cherjun Hernandez MANUAL DIFF REQ NO Normal [facility] Comment on above: Performed By: #### C BC ####[facility] Etmoobspqu923[address] [place], [place] [address]DrJesse Ivette David MCH (RBC) [Entitic mass] 28.4 pg Normal 26.7-34.0 [facility] Comment on above: Performed By: #### C BC ####[facility] Yuuogkxnki163[address] [place], [place] [address]DrJesse Ivette David MCHC (RBC) [Mass/Vol] 31.0 g/dL Normal 29.9-35.2 [facility] Comment on above: Performed By: #### C BC ####[facility] Xmfoqkmqvd369[address] [place], [place] [address]DrJesse Cherjun Hernandez MCV (RBC) [Entitic vol] 91.6 fL Normal 81.0-99.0 [facility] Comment on above: Performed By: #### C BC ####[facility] Vkyznrkwxd44[address] [place], [place] [address]DrJesse Hernandez MONO # 0.5 103/ul Normal 0.3-0.8 [facility] Comment on above: Performed By: #### C BC ####[facility] Fcuzcotjtf7543 [place] [id number]. Ivette Hernandez Monocytes/100 WBC (Bld) 7.8 % Normal 1.7-12.0 [facility] Comment on above: Performed By: #### C BC ####[facility] Ogaiodhjux0772 [place] [id number]. Ivette Hernandez NEUT # 4.2 103/ul Normal 1.4-6.5 [facility] Comment on above: Performed By: #### C BC ####[facility] Moxgsjgfwu6995 [place] [address]Dr. Ivette Hernandez Neutrophils/100 WBC (Bld) 64.1 % Normal 43.0-75.0 [facility] Comment on above: Performed By: #### C BC ####[facility] Loabjeixzq6750 [place] [address]Dr. Ivette Hernandez Platelet mean volume (Bld) [Entitic vol] 9.2 fL Critically low 9.5-13.5 [facility] Comment on above: Performed By: #### C BC ####[facility] Awbafffjhq6275 [place] [address]Dr. Ivette Hernandez PLT 208 103/ul Normal 150-450 [facility] Comment on above: Performed By: #### C BC ####[facility] Qitpbchoak6575 [place] [address]Dr. Ivette Hernandez RBC 2.75 106/ul Critically low 4.20-5.40 [facility] Comment on above: Performed By: #### C BC ####[facility] Kdwyaqzyhz1252 [place] [phone]. Ivette Hernandez WBC 6.5 103/ul Normal 4.0-11.0 [facility] Comment on above: Performed By: #### C BC ####[facility] Edprrejmez8569 [place] [address]Dr. Ivette Hernandez MAGNESIUMon 03-09-2022 Magnesium [Mass/Vol] 1.7 mg/dL Critically low 1.8-2.4 [facility] Comment on above: Performed By: #### B CELL INSTALLER, PHOS, MG, CMP ####[facility] Hokathelpn1405 [place] [address]Dr. Ivette Hernandez MRI BRAIN WO CONon 2 MRI BRAIN WO CON Normal [facility] PHOSPHORUSon 03-09-2022 Phosphate [Mass/Vol] 3.5 mg/dL Normal 2.6-4.7 [facility] Comment on above: Performed By: #### B CELL INSTALLER, PHOS, MG, CMP ####[facility] Kbctgjnihg8277 [place] [address]Dr. Ivette Hernandez PROF 14(COMP METB)on 022 Albumin [Mass/Vol] 2.3 g/dL Critically low 3.4-5.0 Th [facility] Comment on above: Performed By: #### B CELL INSTALLER, PHOS, MG, CMP ####[facility] Qwwpbcocgm6988 [place] [address]Dr. Ivette Hernandez Albumin/Globulin [Mass ratio] 0.6 {ratio} Normal [facility] Comment on above: Performed By: #### B CELL INSTALLER, PHOS, MG, CMP ####[facility] Tpqceongqh069[address] [place], [place] [address]Dr. Ivette Hernandez ALP [Catalytic activity/Vol] 58 U/L Normal 46-116 [facility] Comment on above: Performed By: #### B CELL INSTALLER, PHOS, MG, CMP ####[facility] Rthdwfxqyv1818 [place] [address]Dr. Ivette Hernandez ALT [Catalytic activity/Vol] 13 U/L Critically low 14-59 [facility] Comment on above: Performed By: #### B CELL INSTALLER, PHOS, MG, CMP ####[facility] Dayqtlayqy[address] [place] [address]Dr. Ivette Hernandez Anion gap [Moles/Vol] 5.6 mmol/L Normal [facility] Comment on above: Performed By: #### B CELL INSTALLER, PHOS, MG, CMP ####[facility] Guyuodrmkm02[address] [place] [address]Dr. Ivette Hernandez AST [Catalytic activity/Vol] 16 U/L Normal 15-37 [facility] Comment on above: Performed By: #### B CELL INSTALLER, PHOS, MG, CMP ####[facility] Drvrsjuwji5766 [place] [address]Dr. Ivette Hernandez Bilirubin [Mass/Vol] 0.4 mg/dL Normal 0.2-1.0 [facility] Comment on above: Performed By: #### B CELL INSTALLER, PHOS, MG, CMP ####[facility] Bpsxkecerc[address] [place], [place] [address]Dr. Ivette Hernandez Calcium [Mass/Vol] 7.9 mg/dL Critically low 8.5-10.1 Th [facility] Comment on above: Performed By: #### B CELL INSTALLER, PHOS, MG, CMP ####[facility] Jowqhptxqi[address] [place], [place] [address]Dr. Ivette Hernandez Chloride [Moles/Vol] 99 mmol/L Normal 98-107 [facility] Comment on above: Performed By: #### B CELL INSTALLER, PHOS, MG, CMP ####[facility] Nrylgmncvg[address] [place], [place] [address]Dr. Ivette Hernandez CO2 [Moles/Vol] 40.2 mmol/L Critically high 21.0-32.0 [facility] Comment on above: Performed By: #### B CELL INSTALLER, PHOS, MG, CMP ####[facility] Kgsuivqlfg[address] [place], [place] [address]Dr. Ivette Hernandez Creatinine [Mass/Vol] 1.47 mg/dL Critically high 0.55-1.02 [facility] Comment on above: Performed By: #### B CELL INSTALLER, PHOS, MG, CMP ####[facility] Wuornzstco7[address] [place], [place] [address]Dr. Ivette Hernandez EGFR-AF MOSOTHO 42 mL/min/1.73m2 Critically low >=60 [facility] Comment on above: Performed By: #### B CELL INSTALLER, PHOS, MG, CMP ####[facility] Cnvumtrvvp[address] [place], [place] [address]Dr. Ivette Hernandez EGFR-NON AF MOSOTHO 35 mL/min/1.73m2 Critically low >=60 [facility] Comment on above: Performed By: #### B CELL INSTALLER, PHOS, MG, CMP ####[facility] Adesattmkw6[address] [place] [address]Dr. Ivette Hernandez Globulin (S) [Mass/Vol] 4.0 g/dL Normal [facility] Comment on above: Performed By: #### B CELL INSTALLER, PHOS, MG, CMP ####[facility] Vbhtbvowem6665 [place] [address]Dr. Cherlan Hernandez Glucose [Mass/Vol] 100 mg/dL Normal 74-106 [facility] Comment on above: Performed By: #### B CELL INSTALLER, PHOS, MG, CMP ####[facility] Gjmqpiiqlx[address] [place], [place] [address]Dr. Ivette Hernandez Potassium [Moles/Vol] 3.8 mmol/L Normal 3.5-5.1 [facility] Comment on above: Performed By: #### B CELL INSTALLER, PHOS, MG, CMP ####[facility] Yhbianyyvu[address] [place], [place] [address]Dr. Cherlan Hernandez Protein [Mass/Vol] 6.3 g/dL Critically low 6.4-8.2 Th [facility] Comment on above: Performed By: #### B CELL INSTALLER, PHOS, MG, CMP ####[facility] Djogeytnjw5407 [place] [address]Dr. Cherlan Hernandez Sodium [Moles/Vol] 141 mmol/L Normal 136-145 [facility] Comment on above: Performed By: #### B CELL INSTALLER, PHOS, MG, CMP ####[facility] Rfitgjpqwp5947 [place] [address]Dr. Cherlan Hernandez Urea nitrogen [Mass/Vol] 19.0 mg/dL Critically high 7.0-18.0 [facility] Comment on above: Performed By: #### B CELL INSTALLER, PHOS, MG, CMP ####[facility] Tvlkwczuwe9924 [place] [address]Dr. Ivette Hernandez Urea nitrogen/Creatinine [Mass ratio] 12.9 mg/mg Normal [facility] Comment on above: Performed By: #### B CELL INSTALLER, PHOS, MG, CMP ####[facility] Ipebvbcfek4292 [place] [address]Dr. Ivette Hernandez BNPon 03-08-2022 Natriuretic peptide B (Bld) [Mass/Vol] 64524.0 pg/mL Critically high <=900.0 [facility] Comment on above: Performed By: #### B CELL INSTALLER, CMP, HSTROPN ####[facility] Kmhfqeldkh[address] [place], [place] [address]Dr. Ivette David CBC AUTO DIFFon 03-08-2022 BASO # 0.0 103/ul Normal 0.0-0.1 [facility] Comment on above: Performed By: #### C BC ####[facility] Ibppyioxje[address] [place], [place] [address]Dr. Ivette Hernandez Basophils/100 WBC (Bld) 0.4 % Normal 0.2-2.0 [facility] Comment on above: Performed By: #### C BC ####[facility] Bnxvfhkevr58[address] [place], [place] [address]Dr. Ivette Hernandez EO # 0.3 103/ul Normal 0.0-0.7 [facility] Comment on above: Performed By: #### C BC ####[facility] Apngvghosf4701[address] [place], [place] [address]Dr. Ivette Hernandez Eosinophils/100 WBC (Bld) 2.5 % Normal 0.9-7.0 [facility] Comment on above: Performed By: #### C BC ####[facility] Tpxgoecqsn2[address] [place], [place] [address]Dr. Ivette Hernandez Erythrocyte distribution width (RBC) [Ratio] 14.0 % Normal 11.0-15.0 [facility] Comment on above: Performed By: #### C BC ####[facility] Nxuaywdyuo066[address] [place], [place] [address]Dr. Ivette Hernandez Hematocrit (Bld) [Volume fraction] 29.7 % Critically low 36.0-48.0 [facility] Comment on above: Performed By: #### C BC ####[facility] Isesyeqlro84[address] [place] [phone]. Ivette Hernandez Hemoglobin (Bld) [Mass/Vol] 9.2 g/dL Critically low 12.0-16.0 [facility] Comment on above: Performed By: #### C BC ####[facility] Wjurrkqrga6919 [place] [address]Dr. Ivette Hernandez IG # 0.08 10e3/ul Critically high 0.00-0.03 [facility] Comment on above: Performed By: #### C BC ####[facility] Iakdchfavc5577 [place] [address]Dr. Ivette Hernandez IG % 0.8 % Critically high 0.0-0.5 [facility] Comment on above: Performed By: #### C BC ####[facility] Jyipwmglcy8[address] [place], [place] [address]Dr. Ivette Hernandez LYMPH # 2.5 103/ul Normal 1.2-3.8 [facility] Comment on above: Performed By: #### C BC ####[facility] Sqxkffiwni237[address] [place], [place] [address]Dr. Ivette Hernandez Lymphocytes/100 WBC (Bld) 24.8 % Normal 20.5-60.0 [facility] Comment on above: Performed By: #### C BC ####[facility] Tzeahccxqq[address] [place], [place] [address]Dr. Ivette Hernandez MANUAL DIFF REQ NO Normal [facility] Comment on above: Performed By: #### C BC ####[facility] Nirjtlvxtd678[address] [place], [place] [address]Dr. Ivette Hernandez MCH (RBC) [Entitic mass] 28.5 pg Normal 26.7-34.0 [facility] Comment on above: Performed By: #### C BC ####[facility] Rxyxjwdlwq9815[address] [place], [place] [address]Dr. Ivette Hernandez MCHC (RBC) [Mass/Vol] 31.0 g/dL Normal 29.9-35.2 [facility] Comment on above: Performed By: #### C BC ####[facility] Kcjpbvcwxl2685 [place] [phone]. Ivette Hernandez MCV (RBC) [Entitic vol] 92.0 fL Normal 81.0-99.0 [facility] Comment on above: Performed By: #### C BC ####[facility] Wbzkmdtazr0802 [place] [phone]. Ivette Hernandez MONO # 0.6 103/ul Normal 0.3-0.8 [facility] Comment on above: Performed By: #### C BC ####[facility] Xzwqbahfab6143 [place] [phone]. Ivette Hernandez Monocytes/100 WBC (Bld) 6.3 % Normal 1.7-12.0 [facility] Comment on above: Performed By: #### C BC ####[facility] Eetxbyijdr2886 [place] [phone]. Ivette Hernandez NEUT # 6.6 103/ul Critically high 1.4-6.5 [facility] Comment on above: Performed By: #### C BC ####[facility] Zbs[address]iswwu[address] [place], [place] [address]Dr. Ivette Hernandez Neutrophils/100 WBC (Bld) 65.2 % Normal 43.0-75.0 [facility] Comment on above: Performed By: #### C BC ####[facility] Wfbiobatak0808 [place] [phone]. Ivette Hernandez Platelet mean volume (Bld) [Entitic vol] 9.7 fL Normal 9.5-13.5 [facility] Comment on above: Performed By: #### C BC ####[facility] Ltgtnzpmbf6620 [place] [phone]. Ivette Hernandez PLT 328 103/ul Normal 150-450 [facility] Comment on above: Performed By: #### C BC ####[facility] Pgkiirjozk5629 [place] [phone]. Ivette Hernandez RBC 3.23 106/ul Critically low 4.20-5.40 [facility] Comment on above: Performed By: #### C BC ####[facility] Kbnvxnrhrk4969 [place] [phone]. Ivette Hernandez WBC 10.1 103/ul Normal 4.0-11.0 [facility] Comment on above: Performed By: #### C BC ####[facility] Ycnfczivgs7309 [place] [phone]. Ivette Hernandez BASO # 0.0 103/ul Normal 0.0-0.1 [facility] Comment on above: Performed By: #### C BC ####[facility] Bvrfxluwhf[address] [place], [place] [address]Dr. Ivette Hernandez Basophils/100 WBC (Bld) 0.4 % Normal 0.2-2.0 [facility] Comment on above: Performed By: #### C BC ####[facility] Duwrqjnjgo039[address] [place], [place] [address]Dr. Ivette Hernandez EO # 0.2 103/ul Normal 0.0-0.7 [facility] Comment on above: Performed By: #### C BC ####[facility] Wwtlfqmhfs814[address] [place], [place] [address]Dr. Ivette Hernandez Eosinophils/100 WBC (Bld) 2.9 % Normal 0.9-7.0 [facility] Comment on above: Performed By: #### C BC ####[facility] Toxzglbqgu[address] [place], [place] [address]Dr. Ivette Hernandez Erythrocyte distribution width (RBC) [Ratio] 14.2 % Normal 11.0-15.0 [facility] Comment on above: Performed By: #### C BC ####[facility] Uxxljebnkj939[address] [place], [place] [address]Dr. Ivette Hernandez Hematocrit (Bld) [Volume fraction] 27.7 % Critically low 36.0-48.0 [facility] Comment on above: Performed By: #### C BC ####[facility] Louvnxewfc[address] [place], [place] [address]Dr. Ivette Hernandez Hemoglobin (Bld) [Mass/Vol] 8.5 g/dL Critically low 12.0-16.0 [facility] Comment on above: Performed By: #### C BC ####[facility] Urwtffhjhc7778 [place] [phone]. Cherjun Hernandez IG # 0.04 10e3/ul Critically high 0.00-0.03 [facility] Comment on above: Performed By: #### C BC ####[facility] Hpbpflziau7570 [place] [address]Dr. Ivette Hernandez IG % 0.5 % Normal 0.0-0.5 [facility] Comment on above: Performed By: #### C BC ####[facility] Mrwslzrbpc7070 [place] [address]Dr. Ivette Hernandez LYMPH # 2.1 103/ul Normal 1.2-3.8 [facility] Comment on above: Performed By: #### C BC ####[facility] Djrvbcnbkg4587 [place] [address]Dr. Ivette Hernandez Lymphocytes/100 WBC (Bld) 27.3 % Normal 20.5-60.0 [facility] Comment on above: Performed By: #### C BC ####[facility] Ynsxnrnylu5334 [place] [address]Dr. Ivette Hernandez MANUAL DIFF REQ NO Normal [facility] Comment on above: Performed By: #### C BC ####[facility] Lztbxfqasq7095 [place] [address]Dr. Ivette David MCH (RBC) [Entitic mass] 28.1 pg Normal 26.7-34.0 [facility] Comment on above: Performed By: #### C BC ####[facility] Hlyxkefmod4111 [place] [address]Dr. Ivette David MCHC (RBC) [Mass/Vol] 30.7 g/dL Normal 29.9-35.2 [facility] Comment on above: Performed By: #### C BC ####[facility] Hpsoziedpy6333 [place] [address]Dr. Ivette David MCV (RBC) [Entitic vol] 91.4 fL Normal 81.0-99.0 [facility] Comment on above: Performed By: #### C BC ####[facility] Kmupylmpvg6923 [place] [phone]. Ivette Hernandez MONO # 0.5 103/ul Normal 0.3-0.8 [facility] Comment on above: Performed By: #### C BC ####[facility] Bvfuzdnovz2664 [place] [phone]. Ivette Hernandez Monocytes/100 WBC (Bld) 6.1 % Normal 1.7-12.0 [facility] Comment on above: Performed By: #### C BC ####[facility] Xuyhbcqmwh7308 [place] [phone]. Ivette Hernandez NEUT # 4.9 103/ul Normal 1.4-6.5 [facility] Comment on above: Performed By: #### C BC ####[facility] Jsvukfbmmg220[address] [place], [place] [address]Dr. Ivette Hernandez Neutrophils/100 WBC (Bld) 62.8 % Normal 43.0-75.0 [facility] Comment on above: Performed By: #### C BC ####[facility] Mjtnyarkya1323 [place] [address]Dr. Ivette Hernandez Platelet mean volume (Bld) [Entitic vol] 9.7 fL Normal 9.5-13.5 [facility] Comment on above: Performed By: #### C BC ####[facility] Gigiglybnu[address] [place], [place] [address]Dr. Ivette David PLT 227 103/ul Normal 150-450 [facility] Comment on above: Performed By: #### C BC ####[facility] Ajsfcoenpq9[address] [place], [place] [address]Dr. Ivette Hernandez RBC 3.03 106/ul Critically low 4.20-5.40 [facility] Comment on above: Performed By: #### C BC ####[facility] Rqbqdjglgu[address] [place], [place] [address]Dr. Ivette David WBC 7.8 103/ul Normal 4.0-11.0 [facility] Comment on above: Performed By: #### C BC ####[facility] Uljwpfzqaq67[address] [place], [place] [address]DrJesse Hernandez CT HEAD WO CONon 03-08-2022 CT HEAD WO CON Normal [facility] CTA HEAD WO W CONon 03-08-20 CTA HEAD WO W CON Normal [facility]on SARS-CoV-2 (COVID-19) RNA MARRY+probe Ql (Unsp spec) Not detected Normal NOT DETECTED [facility] Comment on above: Result Comment: When diagnostic [...] for this test is supported by the Security Orderly of Health and Human Service's declaration that [...] be used). Performed By: #### C VDTBH ####[facility] Ntkdcpxlen7426 [place] [phone]. Ivette Hernandez PROF 14(COMP METB)on 022 Albumin [Mass/Vol] 2.6 g/dL Critically low 3.4-5.0 Th [facility] Comment on above: Performed By: #### B CELL INSTALLER, CMP, HSTROPN ####[facility] Amuzdkrzst6[address] [place], [place] [address]BdJesse Hernandez Albumin/Globulin [Mass ratio] 0.6 {ratio} Normal [facility] Comment on above: Performed By: #### B CELL INSTALLER, CMP, HSTROPN ####[facility] Pssmnyecbg9685 [place], [place] [address]XvJesse Hernandez ALP [Catalytic activity/Vol] 68 U/L Normal 46-116 [facility] Comment on above: Performed By: #### B CELL INSTALLER, CMP, HSTROPN ####[facility] Kwgjexhszn4923 [place] [address]Dr. Ivette Hernandez ALT [Catalytic activity/Vol] 16 U/L Normal 14-59 [facility] Comment on above: Performed By: #### B CELL INSTALLER, CMP, HSTROPN ####[facility] Kvnzktlsgi2100 [place] [address]Dr. Ivette Hernandez Anion gap [Moles/Vol] 6.8 mmol/L Normal [facility] Comment on above: Performed By: #### B CELL INSTALLER, CMP, HSTROPN ####[facility] Yaagvnpzaq14[address] [place], [place] [address]Dr. Ivette Hernandez AST [Catalytic activity/Vol] 18 U/L Normal 15-37 [facility] Comment on above: Performed By: #### B CELL INSTALLER, CMP, HSTROPN ####[facility] Iasoejkvda163[address] [place], [place] [address]Dr. Ivette Hernandez Bilirubin [Mass/Vol] 0.5 mg/dL Normal 0.2-1.0 [facility] Comment on above: Performed By: #### B CELL INSTALLER, CMP, HSTROPN ####[facility] Cqybhdfsbx[address] [place], [place] [address]Dr. Ivette Hernandez Calcium [Mass/Vol] 8.2 mg/dL Critically low 8.5-10.1 Th [facility] Comment on above: Performed By: #### B CELL INSTALLER, CMP, HSTROPN ####[facility] Kzbrwxpwwe[address] [place], [place] [address]Dr. Ivette Hernandez Chloride [Moles/Vol] 97 mmol/L Critically low 98-107 [facility] Comment on above: Performed By: #### B CELL INSTALLER, CMP, HSTROPN ####[facility] Mtkoehlphr9815 [place] [address]Dr. Ivette Hernandez CO2 [Moles/Vol] 37.9 mmol/L Critically high 21.0-32.0 [facility] Comment on above: Performed By: #### B CELL INSTALLER, CMP, HSTROPN ####[facility] Nlzgnhmfcq5920 [place] [address]Dr. Ivette Hernandez Creatinine [Mass/Vol] 1.65 mg/dL Critically high 0.55-1.02 [facility] Comment on above: Performed By: #### B CELL INSTALLER, CMP, HSTROPN ####[facility] Lykcavihjy7995 [place] [address]Dr. Ivette Hernandez EGFR-AF MOSOTHO 37 mL/min/1.73m2 Critically low >=60 [facility] Comment on above: Performed By: #### B CELL INSTALLER, CMP, HSTROPN ####[facility] Wuiwiatopx[address] [place], [place] [address]Dr. Ivette Hernandez EGFR-NON AF MOSOTHO 30 mL/min/1.73m2 Critically low >=60 [facility] Comment on above: Performed By: #### B CELL INSTALLER, CMP, HSTROPN ####[facility] Ejjdsdqlrs7[address] [place], [place] [address]Dr. Ivette Hernandez Globulin (S) [Mass/Vol] 4.7 g/dL Normal [facility] Comment on above: Performed By: #### B CELL INSTALLER, CMP, HSTROPN ####[facility] Kjxotxruec[address] [place], [place] [address]Dr. Ivette Hernandez Glucose [Mass/Vol] 203 mg/dL Critically high 74-106 [facility] Comment on above: Performed By: #### B CELL INSTALLER, CMP, HSTROPN ####[facility] Zkfqeybpjt153[address] [place], [place] [address]Dr. Ivette Hernandez Potassium [Moles/Vol] 3.7 mmol/L Normal 3.5-5.1 [facility] Comment on above: Performed By: #### B CELL INSTALLER, CMP, HSTROPN ####[facility] Ruuwzlgolz9[address] [place], [place] [address]Dr. Ivette Hernandez Protein [Mass/Vol] 7.3 g/dL Normal 6.4-8.2 [facility] Comment on above: Performed By: #### B CELL INSTALLER, CMP, HSTROPN ####[facility] Rtmpkduqsa3848 [place] [address]Dr. Ivette Hernandez Sodium [Moles/Vol] 138 mmol/L Normal 136-145 [facility] Comment on above: Performed By: #### B CELL INSTALLER, CMP, HSTROPN ####[facility] Wlozrqhjak7809 [place] [address]Dr. Ivette Hernandez Urea nitrogen [Mass/Vol] 22.0 mg/dL Critically high 7.0-18.0 [facility] Comment on above: Performed By: #### B CELL INSTALLER, CMP, HSTROPN ####[facility] Kdkyjvkqrb8471 [place] [address]Dr. Ivette Hernandez Urea nitrogen/Creatinine [Mass ratio] 13.3 mg/mg Normal [facility] Comment on above: Performed By: #### B CELL INSTALLER, CMP, HSTROPN ####[facility] Uuwbohfhrr9578 [place] [address]Dr. Ivette Hernandez PROF CHEM 8 (BAS METB)on Anion gap [Moles/Vol] 6.0 mmol/L Normal [facility] Comment on above: Performed By: #### B MP ####[facility] Xlyguappml5[address] [place], [place] [address]Dr. Ivette Hernandez Calcium [Mass/Vol] 8.0 mg/dL Critically low 8.5-10.1 Th [facility] Comment on above: Performed By: #### B MP ####[facility] Fmexsyhbdp1768 [place] [address]Dr. Ivette Hernandez Chloride [Moles/Vol] 98 mmol/L Normal 98-107 [facility] Comment on above: Performed By: #### B MP ####[facility] Fgvatamkif659[address] [place], [place] [address]Dr. Ivette Hernandez CO2 [Moles/Vol] 39.9 mmol/L Critically high 21.0-32.0 [facility] Comment on above: Performed By: #### B MP ####[facility] Okctvdrzso239[address] [place], [place] [address]Dr. Ivette Hernandez Creatinine [Mass/Vol] 1.56 mg/dL Critically high 0.55-1.02 [facility] Comment on above: Performed By: #### B MP ####[facility] Jqxcboeqnp5019 [place] [address]Dr. Ivette Hernandez EGFR-AF MOSOTHO 39 mL/min/1.73m2 Critically low >=60 [facility] Comment on above: Performed By: #### B MP ####[facility] Uxzmbyuhag0460 [place] [address]Dr. Ivette Hernandez EGFR-NON AF MOSOTHO 33 mL/min/1.73m2 Critically low >=60 [facility] Comment on above: Performed By: #### B MP ####[facility] Urwockgeyu1087 [place] [address]Dr. Ivette Hernandez Glucose [Mass/Vol] 143 mg/dL Critically high 74-106 [facility] Comment on above: Performed By: #### B MP ####[facility] Snjocauqwr[address] [place], [place] [address]Dr. Ivette Hernandez Potassium [Moles/Vol] 3.9 mmol/L Normal 3.5-5.1 [facility] Comment on above: Performed By: #### B MP ####[facility] Avrmopytsk[address] [place], [place] [address]Dr. Ivette Hernandez Sodium [Moles/Vol] 140 mmol/L Normal 136-145 [facility] Comment on above: Performed By: #### B MP ####[facility] Ulkiwumsmv006[address] [place], [place] [address]Dr. Ivette Hernandez Urea nitrogen [Mass/Vol] 23.0 mg/dL Critically high 7.0-18.0 [facility] Comment on above: Performed By: #### B MP ####[facility] Efpbhhcheq06[address] [place], [place] [address]Dr. Ivette Hernandez Urea nitrogen/Creatinine [Mass ratio] 14.7 mg/mg Normal [facility] Comment on above: Performed By: #### B MP ####[facility] Oahvxaidvm[address] [place], [place] [address]Dr. Ivette Hernandez PROTIMEon 03-08-2022 INR Coag (PPP) [Relative time] 1.11 {INR} Normal [facility] Comment on above: Performed By: #### P T, PTT ####[facility] Bcdqyvoput5206 [place] [address]Dr. Ivette Hernandez INR GUIDELINES SEE BELOW Normal [facility] Comment on above: Result Comment: MELANIE RED INR: 2.0 - 3.0 CONDITIONS NOT LISTED BELOW 2.5 - 3.5 FOR PROSTHETIC HEART VALVE REPLACEMENT 2.5 - 3.5 RECURRENT THROMBOSIS Performed By: #### P T, PTT ####[facility] Ugkhggyhle[address] [place], [place] [address]Dr. Ivette Hernandez PT Coag (PPP) [Time] 11.9 s Critically high 9.0-11.6 [facility] Comment on above: Performed By: #### P T, PTT ####[facility] Qwylftkpmi475[address] [place], [place] [address]Dr. Ivette David PTTon 03-08-2022 aPTT Coag (Bld) [Time] 29.0 s Normal 22.3-36.2 [facility] Comment on above: Performed By: #### P T, PTT ####[facility] Jkddfhhfhh734[address] [place], [place] [address]Dr. Ivette Hernandez TROPONIN, HIGH SENSITIVITYon 03-08-2022 HSTROP 74.2 pg/mL Critically high 4.0-51.3 [facility] Comment on above: Result Comment: CUT- OFF POINTS HAVE BEEN ESTABLISHED BASED ON THE FOURTH UNIVERSAL DEFINITIONS OF MYOCARDIALINFARCTION. THE UPPER REFERENCE LIMIT (URL) OF TROPONIN, DEFINED THE 99TH PERCENTILE OFcTnI DISTRIBUTION IN A REFERENCE POPULATION, HAS BEEN CONFIRMED THE DECISION THRESHOLDFOR NC DIAGNOSIS. Performed By: #### B CELL INSTALLER, CMP, HSTROPN ####[facility] Ptnssmrjqz[address] [place], [place] [address]Dr. Ivette Hernandez XR CHEST 1 Von 03-08-2022 XR CHEST 1 V Normal [facility] CBC AUTO DIFFon 03-07-2022 BASO # 0.0 103/ul Normal 0.0-0.1 [facility] Comment on above: Performed By: #### C BC ####[facility] Iwrnvbhidx1825 [place] [id number]. Ivette Hernandez Basophils/100 WBC (Bld) 0.5 % Normal 0.2-2.0 [facility] Comment on above: Performed By: #### C BC ####[facility] Drfcbqnlwb[address] [place], [place] [address]Dr. Ivette Hernandez EO # 0.3 103/ul Normal 0.0-0.7 [facility] Comment on above: Performed By: #### C BC ####[facility] Haxcatuffm[address] [place], [place] [address]Dr. Ivette Hernandez Eosinophils/100 WBC (Bld) 3.9 % Normal 0.9-7.0 [facility] Comment on above: Performed By: #### C BC ####[facility] Etrjqoonng69[address] [place], [place] [address]Dr. Ivette Hernandez Erythrocyte distribution width (RBC) [Ratio] 14.1 % Normal 11.0-15.0 [facility] Comment on above: Performed By: #### C BC ####[facility] Okqrdsnfef14[address] [place], [place] [address]Dr. Ivette Hernandez Hematocrit (Bld) [Volume fraction] 26.9 % Critically low 36.0-48.0 [facility] Comment on above: Performed By: #### C BC ####[facility] [address]uhqnxmfvw[address] [place], [place] [address]Dr. Ivette Hernandez Hemoglobin (Bld) [Mass/Vol] 8.1 g/dL Critically low 12.0-16.0 [facility] Comment on above: Performed By: #### C BC ####[facility] Hlaxfjjesg[address] [place], [place] [address]Dr. Ivette Hernandez IG # 0.06 10e3/ul Critically high 0.00-0.03 [facility] Comment on above: Performed By: #### C BC ####[facility] Ijscmgxsbl[address] [place], [place] [address]Dr. Ivette Hernandez IG % 0.8 % Critically high 0.0-0.5 [facility] Comment on above: Performed By: #### C BC ####[facility] Bobpufnxlw5[address] [place] [phone]. Ivette Hernandez LYMPH # 1.7 103/ul Normal 1.2-3.8 [facility] Comment on above: Performed By: #### C BC ####[facility] Uilpjdmguu4022 [place] [phone]. Ivette David Lymphocytes/100 WBC (Bld) 21.9 % Normal 20.5-60.0 [facility] Comment on above: Performed By: #### C BC ####[facility] Wddcjsucle8680 [place] [address]Dr. Cherjun Hernandez MANUAL DIFF REQ NO Normal [facility] Comment on above: Performed By: #### C BC ####[facility] Yzaxisffxj883[address] [place], [place] [address]Dr. Ivette David MCH (RBC) [Entitic mass] 28.2 pg Normal 26.7-34.0 [facility] Comment on above: Performed By: #### C BC ####[facility] Inemkemizq66[address] [place], [place] [address]Dr. Ivette Hernandez MCHC (RBC) [Mass/Vol] 30.1 g/dL Normal 29.9-35.2 [facility] Comment on above: Performed By: #### C BC ####[facility] Yhehizudju57[address] [place] [address]Dr. Ivette David MCV (RBC) [Entitic vol] 93.7 fL Normal 81.0-99.0 [facility] Comment on above: Performed By: #### C BC ####[facility] Gjecrjxmrf9358 [place] [phone]. Ivette Hernandez MONO # 0.5 103/ul Normal 0.3-0.8 [facility] Comment on above: Performed By: #### C BC ####[facility] Qpvzcwypyt[address] [place], [place] [address]Dr. Ivette David Monocytes/100 WBC (Bld) 6.5 % Normal 1.7-12.0 [facility] Comment on above: Performed By: #### C BC ####[facility] Wnepuxvjgh7426 [place] [phone]. Ivette Hernandez NEUT # 5.3 103/ul Normal 1.4-6.5 [facility] Comment on above: Performed By: #### C BC ####[facility] Moiylvccpd1684 [place] [phone]. Ivette Hernandez Neutrophils/100 WBC (Bld) 66.4 % Normal 43.0-75.0 [facility] Comment on above: Performed By: #### C BC ####[facility] Jlyefublec5207 [place] [address]Dr. vIette Hernandez Platelet mean volume (Bld) [Entitic vol] 9.9 fL Normal 9.5-13.5 [facility] Comment on above: Performed By: #### C BC ####[facility] Inocifmzjc8780 [place] [address]Dr. Ivette David PLT 229 103/ul Normal 150-450 [facility] Comment on above: Performed By: #### C BC ####[facility] Sgxkspgdqa995[address] [place], [place] [address]Dr. Ivette Hernandez RBC 2.87 106/ul Critically low 4.20-5.40 [facility] Comment on above: Performed By: #### C BC ####[facility] Edrfmzyrlw77[address] [place], [place] [address]Dr. Ivette Hernandez WBC 7.9 103/ul Normal 4.0-11.0 [facility] Comment on above: Performed By: #### C BC ####[facility] Sxamusxlxl660[address] [place], [place] [address]Dr. Ivette David PROF CHEM 8 (BAS METB)on Anion gap [Moles/Vol] 2.9 mmol/L Normal [facility] Comment on above: Performed By: #### B MP ####[facility] Ciiorkkmix656[address] [place], [place] [address]Dr. Ivette David Calcium [Mass/Vol] 7.5 mg/dL Critically low 8.5-10.1 Th [facility] Comment on above: Performed By: #### B MP ####[facility] Rxlgxrfafc9530 [place] [address]Dr. Ivette Hernandez Chloride [Moles/Vol] 102 mmol/L Normal 98-107 [facility] Comment on above: Performed By: #### B MP ####[facility] Tbqacmvzno4717 [place] [address]Dr. Ivette David CO2 [Moles/Vol] 41.1 mmol/L Critically high 21.0-32.0 [facility] Comment on above: Performed By: #### B MP ####[facility] Vnpayausbh885[address] [place], [place] [address]Dr. Ivette Hernandez Creatinine [Mass/Vol] 1.58 mg/dL Critically high 0.55-1.02 [facility] Comment on above: Performed By: #### B MP ####[facility] Arwfuejvcj9107[address] [place], [place] [address]Dr. Ivette Hernandez EGFR-AF MOSOTHO 39 mL/min/1.73m2 Critically low >=60 [facility] Comment on above: Performed By: #### B MP ####[facility] Vshyijlyve506[address] [place], [place] [address]Dr. Ivette David EGFR-NON AF MOSOTHO 32 mL/min/1.73m2 Critically low >=60 [facility] Comment on above: Performed By: #### B MP ####[facility] Kjtrjjcjyu534[address] [place], [place] [address]Dr. Cherjun David Glucose [Mass/Vol] 115 mg/dL Critically high 74-106 [facility] Comment on above: Performed By: #### B MP ####[facility] Gmajdxkyaj1916[address] [place], [place] [address]Dr. Ivette Hernandez Potassium [Moles/Vol] 4.0 mmol/L Normal 3.5-5.1 [facility] Comment on above: Performed By: #### B MP ####[facility] Wnmgjgaxxk2477[address] [place], [place] [address]Dr. Ivette Hernandez Sodium [Moles/Vol] 142 mmol/L Normal 136-145 [facility] Comment on above: Performed By: #### B MP ####[facility] Pizpvpeavw3360 [place] [phone]. Ivette David Urea nitrogen [Mass/Vol] 23.0 mg/dL Critically high 7.0-18.0 [facility] Comment on above: Performed By: #### B MP ####[facility] Qdtxkuvosg824[address] [place], [place] [address]Dr. Ivette Hernandez Urea nitrogen/Creatinine [Mass ratio] 14.6 mg/mg Normal [facility] Comment on above: Performed By: #### B MP ####[facility] Swucwwracm59450[address] [place], [place] [address]Dr. Cherjun Hernandez CBC AUTO DIFFon 03-06-2022 BASO # 0.0 103/ul Normal 0.0-0.1 [facility] Comment on above: Performed By: #### C BC ####[facility] Imbgampnon015[address] [place], [place] [address]Dr. Ivette Hernandez Basophils/100 WBC (Bld) 0.3 % Normal 0.2-2.0 [facility] Comment on above: Performed By: #### C BC ####[facility] Ecaxfsdtbq5714[address] [place], [place] [address]Dr. Ivette David EO # 0.2 103/ul Normal 0.0-0.7 [facility] Comment on above: Performed By: #### C BC ####[facility] Uvnnbjwnyf065[address] [place], [place] [address]Dr. Ivette Hernandez Eosinophils/100 WBC (Bld) 2.4 % Normal 0.9-7.0 [facility] Comment on above: Performed By: #### C BC ####[facility] Dbsmxrhyoj410[address] [place], [place] [address]Dr. Cherjun Hernandez Erythrocyte distribution width (RBC) [Ratio] 14.3 % Normal 11.0-15.0 [facility] Comment on above: Performed By: #### C BC ####[facility] Nsvljmhlzy947[address] [place], [place] [address]Dr. Ivette Hernandez Hematocrit (Bld) [Volume fraction] 27.2 % Critically low 36.0-48.0 [facility] Comment on above: Performed By: #### C BC ####[facility] Elzwysdshh0801 [place] [address]Dr. Ivette Hernandez Hemoglobin (Bld) [Mass/Vol] 7.8 g/dL Critically low 12.0-16.0 [facility] Comment on above: Performed By: #### C BC ####[facility] Ifcewzpzvo3062 [place] [address]Dr. Ivette Hernandez IG # 0.07 10e3/ul Critically high 0.00-0.03 [facility] Comment on above: Performed By: #### C BC ####[facility] Ewujortcbb3879 [place] [address]Dr. Ivette Hernandez IG % 0.8 % Critically high 0.0-0.5 [facility] Comment on above: Performed By: #### C BC ####[facility] Gpmlapkbpf110[address] [place], [place] [address]Dr. Ivette Hernandez LYMPH # 1.8 103/ul Normal 1.2-3.8 [facility] Comment on above: Performed By: #### C BC ####[facility] Zymtaijgvp00[address] [place], [place] [address]Dr. Cherjun Hernandez Lymphocytes/100 WBC (Bld) 21.2 % Normal 20.5-60.0 [facility] Comment on above: Performed By: #### C BC ####[facility] Rgqtmuibfw064[address] [place], [place] [address]Dr. Ivette Hernandez MANUAL DIFF REQ NO Normal [facility] Comment on above: Performed By: #### C BC ####[facility] Oglxwvwtds2215[address] [place], [place] [address]Dr. Ivette Hernandez MCH (RBC) [Entitic mass] 27.6 pg Normal 26.7-34.0 [facility] Comment on above: Performed By: #### C BC ####[facility] Zfyomciydc1522 [place] [address]Dr. Ivette Hernandez MCHC (RBC) [Mass/Vol] 28.7 g/dL Critically low 29.9-35.2 [facility] Comment on above: Performed By: #### C BC ####[facility] Zduvosafim1036 [place] [address]Dr. Ivette Hernandez MCV (RBC) [Entitic vol] 96.1 fL Normal 81.0-99.0 [facility] Comment on above: Performed By: #### C BC ####[facility] Wwnbdoaekc9932 [place] [address]Dr. Ivette Hernandez MONO # 0.6 103/ul Normal 0.3-0.8 [facility] Comment on above: Performed By: #### C BC ####[facility] Kcpgflvtni4235 [place] [address]Dr. Ivette David Monocytes/100 WBC (Bld) 6.8 % Normal 1.7-12.0 [facility] Comment on above: Performed By: #### C BC ####[facility] Lrkxevhehr917[address] [place], [place] [address]Dr. Ivette Hernandez NEUT # 5.9 103/ul Normal 1.4-6.5 [facility] Comment on above: Performed By: #### C BC ####[facility] Sebzuccrnb622[address] [place], [place] [address]Dr. Cherjun Hernandez Neutrophils/100 WBC (Bld) 68.5 % Normal 43.0-75.0 [facility] Comment on above: Performed By: #### C BC ####[facility] Usbnduvtre123[address] [place], [place] [address]Dr. Ivette David Platelet mean volume (Bld) [Entitic vol] 9.9 fL Normal 9.5-13.5 [facility] Comment on above: Performed By: #### C BC ####[facility] Moimnsgylx32350[address] [place], [place] [address]Dr. Cherjun David PLT 193 103/ul Normal 150-450 [facility] Comment on above: Performed By: #### C BC ####[facility] Dsdfmwomjb2128 [place] [phone]. Ivette Hernandez RBC 2.83 106/ul Critically low 4.20-5.40 [facility] Comment on above: Performed By: #### C BC ####[facility] Krfjpgkvgl8015 [place] [address]Dr. Ivette Hernandez WBC 8.7 103/ul Normal 4.0-11.0 [facility] Comment on above: Performed By: #### C BC ####[facility] Msnalrwxvr6892 [place] [address]Dr. Ivette Hernandez PROF CHEM 8 (BAS METB)on Anion gap [Moles/Vol] 2.7 mmol/L Normal [facility] Comment on above: Performed By: #### B MP ####[facility] Fpgokcccmm4728 [place] [address]Dr. Ivette Hernandez Calcium [Mass/Vol] 7.6 mg/dL Critically low 8.5-10.1 Th [facility] Comment on above: Performed By: #### B MP ####[facility] Zqjodiknnq143[address] [place], [place] [address]Dr. Ivette Hernandez Chloride [Moles/Vol] 103 mmol/L Normal 98-107 [facility] Comment on above: Performed By: #### B MP ####[facility] Lxemppprko490[address] [place], [place] [address]Dr. Ivette Hernandez CO2 [Moles/Vol] 41.1 mmol/L Critically high 21.0-32.0 [facility] Comment on above: Performed By: #### B MP ####[facility] Wbvdqenffv860[address] [place], [place] [address]Dr. Ivette Hernandez Creatinine [Mass/Vol] 1.61 mg/dL Critically high 0.55-1.02 [facility] Comment on above: Performed By: #### B MP ####[facility] Tfnmrltxrn006[address] [place], [place] [address]Dr. Ivette Hernandez EGFR-AF MOSOTHO 38 mL/min/1.73m2 Critically low >=60 [facility] Comment on above: Performed By: #### B MP ####[facility] Mbgdyfnchv7277[address] [place], [place] [address]Dr. Ivette Hernandez EGFR-NON AF MOSOTHO 31 mL/min/1.73m2 Critically low >=60 [facility] Comment on above: Performed By: #### B MP ####[facility] Oipfhyoeqh985[address] [place], [place] [address]Dr. Cherjun Hernandez Glucose [Mass/Vol] 124 mg/dL Critically high 74-106 [facility] Comment on above: Performed By: #### B MP ####[facility] Aygfwkeyju486[address] [place], [place] [address]Dr. Ivette Hernandez Potassium [Moles/Vol] 3.8 mmol/L Normal 3.5-5.1 [facility] Comment on above: Performed By: #### B MP ####[facility] Gpxqeohsrn3414[address] [place], [place] [address]Dr. Ivette Hernandez Sodium [Moles/Vol] 143 mmol/L Normal 136-145 [facility] Comment on above: Performed By: #### B MP ####[facility] Itsljzflyb700[address] [place], [place] [address]Dr. Ivette Hernandez Urea nitrogen [Mass/Vol] 26.0 mg/dL Critically high 7.0-18.0 [facility] Comment on above: Performed By: #### B MP ####[facility] Ostdjvysgo8597[address] [place], [place] [address]Dr. Cherjun David Urea nitrogen/Creatinine [Mass ratio] 16.1 mg/mg Normal [facility] Comment on above: Performed By: #### B MP ####[facility] Oesgfjgnnk57360[address] [place], [place] [address]Dr. Ivette Hernandez BNPon 03-05-2022 Natriuretic peptide B (Bld) [Mass/Vol] 11478.0 pg/mL Critically high <=900.0 [facility] Comment on above: Performed By: #### H STROPN, BNP, CMP ####[facility] Oyvrvmqbdt177[address] [place], [place] [address]Dr. Ivette Hernandez CBC AUTO DIFFon 03-05-2022 BASO # 0.0 103/ul Normal 0.0-0.1 [facility] Comment on above: Performed By: #### C BC ####[facility] Cqcwomvgnh9744 [place] [phone]. Ivette Hernandez Basophils/100 WBC (Bld) 0.4 % Normal 0.2-2.0 [facility] Comment on above: Performed By: #### C BC ####[facility] Ualsblobvi5377 [place] [phone]. Ivette Hernandez EO # 0.4 103/ul Normal 0.0-0.7 [facility] Comment on above: Performed By: #### C BC ####[facility] Rjcfqwxerl[address] [place], [place] [address]Dr. Ivette Hernandez Eosinophils/100 WBC (Bld) 3.1 % Normal 0.9-7.0 [facility] Comment on above: Performed By: #### C BC ####[facility] Yoiloyfhxr547[address] [place], [place] [address]Dr. Ivette Hernandez Erythrocyte distribution width (RBC) [Ratio] 14.5 % Normal 11.0-15.0 [facility] Comment on above: Performed By: #### C BC ####[facility] Iinsfuwkte34[address] [place], [place] [address]Dr. Ivette Hernandez Hematocrit (Bld) [Volume fraction] 25.3 % Critically low 36.0-48.0 [facility] Comment on above: Performed By: #### C BC ####[facility] Uxytibovei[address] [place], [place] [address]Dr. Ivette Hernandez Hemoglobin (Bld) [Mass/Vol] 7.5 g/dL Critically low 12.0-16.0 [facility] Comment on above: Performed By: #### C BC ####[facility] Nljcpgdxfp5596 [place] [phone]. Ivette Hernandez IG # 0.08 10e3/ul Critically high 0.00-0.03 [facility] Comment on above: Performed By: #### C BC ####[facility] K[address]czfvrf[address] [place], [place] [address]Dr. Ivette Hernandez IG % 0.7 % Critically high 0.0-0.5 [facility] Comment on above: Performed By: #### C BC ####[facility] Hugjauvszp4720 [place] [phone]. Ivette Hernandez LYMPH # 1.7 103/ul Normal 1.2-3.8 [facility] Comment on above: Performed By: #### C BC ####[facility] Avydftdnjb7185 [place], [place] [address]Gh. Ivette Hernandez Lymphocytes/100 WBC (Bld) 14.7 % Critically low 20.5-60.0 [facility] Comment on above: Performed By: #### C BC ####[facility] Ylxquhxmfe4001 [place] [phone]. Ivette Hernandez MANUAL DIFF REQ NO Normal [facility] Comment on above: Performed By: #### C BC ####[facility] Grteqnvoym2147 [place] [phone]. Ivette David MCH (RBC) [Entitic mass] 27.9 pg Normal 26.7-34.0 [facility] Comment on above: Performed By: #### C BC ####[facility] Yxoqwmvkdw6801 [place] [phone]. Ivette Hernandez MCHC (RBC) [Mass/Vol] 29.6 g/dL Critically low 29.9-35.2 [facility] Comment on above: Performed By: #### C BC ####[facility] Taiezkqtbb3631 [place] [phone]. Ivette Hernandez MCV (RBC) [Entitic vol] 94.1 fL Normal 81.0-99.0 [facility] Comment on above: Performed By: #### C BC ####[facility] Hhpqdgdjyi1096 [place] [phone]. Ivette Hernandez MONO # 0.9 103/ul Critically high 0.3-0.8 [facility] Comment on above: Performed By: #### C BC ####[facility] Ujhpzsjwqf8899 [place] [phone]. Ivette David Monocytes/100 WBC (Bld) 7.7 % Normal 1.7-12.0 [facility] Comment on above: Performed By: #### C BC ####[facility] Kctfoqmjln7069 [place], [place] [address]Ir. Ivette Hernandez NEUT # 8.3 103/ul Critically high 1.4-6.5 [facility] Comment on above: Performed By: #### C BC ####[facility] Sjeaerwnji1390 [place], [place] [address]Cz. Ivette Hernandez Neutrophils/100 WBC (Bld) 73.4 % Normal 43.0-75.0 [facility] Comment on above: Performed By: #### C BC ####[facility] Lfqcnfqccr0538 [place] [phone]. Ivette Hernandez Platelet mean volume (Bld) [Entitic vol] 9.8 fL Normal 9.5-13.5 [facility] Comment on above: Performed By: #### C BC ####[facility] Zvbqrxuyog5487 [place] [phone]. Ivette Hernandez PLT 256 103/ul Normal 150-450 [facility] Comment on above: Performed By: #### C BC ####[facility] Qlynmebbxd4772 [place] [phone]. Ivette Hernandez RBC 2.69 106/ul Critically low 4.20-5.40 [facility] Comment on above: Performed By: #### C BC ####[facility] Unlmzztlyw7736 [place] [phone]. Ivette Hernandez WBC 11.3 103/ul Critically high 4.0-11.0 [facility] Comment on above: Performed By: #### C BC ####[facility] Ekqrdllpbw[address] [place], [place] [address]Dr. Ivette Hernandez [facility]on SARS-CoV-2 (COVID-19) RNA MARRY+probe Ql (Unsp spec) Not detected Normal NOT DETECTED [facility] Comment on above: Result Comment: When diagnostic [...] for this test is supported by the Security Orderly of Health and Human Service's declaration that [...] be used). Performed By: #### C VDTBH ####[facility] Zmtcexgclb[address] [place], [place] [address]Dr. Ivette Hernandez LACTATE/LACTIC ACIDon 2021 Lactate [Moles/Vol] 0.6 mmol/L Normal 0.4-1.9 [facility] Comment on above: Performed By: #### L ACT ####[facility] Oysfhjvqkm822[address] [place], [place] [address]Dr. Ivette Hernandez PROF 14(COMP METB)on 022 Albumin [Mass/Vol] 2.3 g/dL Critically low 3.4-5.0 Th [facility] Comment on above: Performed By: #### H STROPN, BNP, CMP ####[facility] Ssidrqlczj335[address] [place], [place] [address]Dr. Ivette Hernandez Albumin/Globulin [Mass ratio] 0.5 {ratio} Normal [facility] Comment on above: Performed By: #### H STROPN, BNP, CMP ####[facility] Ravhnqsaxl513[address] [place], [place] [address]Dr. Ivette Hernandez ALP [Catalytic activity/Vol] 72 U/L Normal 46-116 [facility] Comment on above: Performed By: #### H STROPN, BNP, CMP ####[facility] Uajwfkhukl67[address] [place], [place] [address]Dr. Ivette Hernandez ALT [Catalytic activity/Vol] 15 U/L Normal 14-59 [facility] Comment on above: Performed By: #### H STROPN, BNP, CMP ####[facility] Mzkhjxffxo8087 [place] [address]Dr. Ivette Hernandez Anion gap [Moles/Vol] 5.3 mmol/L Normal [facility] Comment on above: Performed By: #### H STROPN, BNP, CMP ####[facility] Cvdfwztigg4149 [place] [address]Dr. Ivette Hernandez AST [Catalytic activity/Vol] 16 U/L Normal 15-37 [facility] Comment on above: Performed By: #### H STROPN, BNP, CMP ####[facility] Ulxeuwhucn0680 [place] [address]Dr. Ivette Hernandez Bilirubin [Mass/Vol] 0.5 mg/dL Normal 0.2-1.0 [facility] Comment on above: Performed By: #### H STROPN, BNP, CMP ####[facility] Pyfeoyixtp419[address] [place], [place] [address]Dr. Ivette Hernandez Calcium [Mass/Vol] 7.8 mg/dL Critically low 8.5-10.1 Th [facility] Comment on above: Performed By: #### H STROPN, BNP, CMP ####[facility] Zrucdvvhgo317[address] [place], [place] [address]Dr. Ivette Hernandez Chloride [Moles/Vol] 102 mmol/L Normal 98-107 [facility] Comment on above: Performed By: #### H STROPN, BNP, CMP ####[facility] Fatirlhsyr211[address] [place], [place] [address]Dr. Ivette Hernandez CO2 [Moles/Vol] 38.3 mmol/L Critically high 21.0-32.0 [facility] Comment on above: Performed By: #### H STROPN, BNP, CMP ####[facility] Ohpenubevs307[address] [place], [place] [address]Dr. Ivette Hernandez Creatinine [Mass/Vol] 1.50 mg/dL Critically high 0.55-1.02 [facility] Comment on above: Performed By: #### H STROPN, BNP, CMP ####[facility] Ilucdcdfhl5[address] [place], [place] [address]Dr. Ivette Hernandez EGFR-AF MOSOTHO 41 mL/min/1.73m2 Critically low >=60 [facility] Comment on above: Performed By: #### H STROPN, BNP, CMP ####[facility] Tbezajvqer8978 [place] [address]Dr. Ivette Hernandez EGFR-NON AF MOSOTHO 34 mL/min/1.73m2 Critically low >=60 [facility] Comment on above: Performed By: #### H STROPN, BNP, CMP ####[facility] Vjfplbimqi8000 [place] [address]Dr. Ivette Hernandez Globulin (S) [Mass/Vol] 4.3 g/dL Normal [facility] Comment on above: Performed By: #### H STROPN, BNP, CMP ####[facility] Kpdwezfmoq9995 [place] [address]Dr. Ivette Hernandez Glucose [Mass/Vol] 138 mg/dL Critically high 74-106 [facility] Comment on above: Performed By: #### H STROPN, BNP, CMP ####[facility] Vvusiriqaz88[address] [place], [place] [address]Dr. Ivette Hernandez Potassium [Moles/Vol] 3.6 mmol/L Normal 3.5-5.1 [facility] Comment on above: Performed By: #### H STROPN, BNP, CMP ####[facility] Lszerhunjy230[address] [place], [place] [address]Dr. Ivette Hernandez Protein [Mass/Vol] 6.6 g/dL Normal 6.4-8.2 [facility] Comment on above: Performed By: #### H STROPN, BNP, CMP ####[facility] Ueamjuhqlj9116 [place] [address]Dr. Ivette Hernandez Sodium [Moles/Vol] 142 mmol/L Normal 136-145 [facility] Comment on above: Performed By: #### H STROPN, BNP, CMP ####[facility] Wlguuhiubl3081 [place] [address]Dr. Ivette Hernandez Urea nitrogen [Mass/Vol] 24.0 mg/dL Critically high 7.0-18.0 [facility] Comment on above: Performed By: #### H STROPN, BNP, CMP ####[facility] Yjbgigqluq5193 [place] [phone]. Ivette Hernandez Urea nitrogen/Creatinine [Mass ratio] 16.0 mg/mg Normal [facility] Comment on above: Performed By: #### H STROPN, BNP, CMP ####[facility] Xlwyamtoyl3358 [place] [address]Dr. Ivette Hernandez TROPONIN, HIGH SENSITIVITYon 03-05-2022 HSTROP 18.0 pg/mL Normal 4.0-51.3 [facility] Comment on above: Result Comment: CUT- OFF POINTS HAVE BEEN ESTABLISHED BASED ON THE FOURTH UNIVERSAL DEFINITIONS OF MYOCARDIALINFARCTION. THE UPPER REFERENCE LIMIT (URL) OF TROPONIN, DEFINED THE 99TH PERCENTILE OFcTnI DISTRIBUTION IN A REFERENCE POPULATION, HAS BEEN CONFIRMED THE DECISION THRESHOLDFOR NC DIAGNOSIS. Performed By: #### H STROPN, BNP, CMP ####[facility] Zikyamjojw8412 [place] [address]Dr. Ivette Hernandez XR CHEST 1 Von 03-05-2022 XR CHEST 1 V Normal [facility] CBC AUTO DIFFon 02-27-2022 BASO # 0.0 103/ul Normal 0.0-0.1 [facility] Comment on above: Performed By: #### C BC ####[facility] Pcqneutkir0273 [place] [address]Dr. Ivette Hernandez Basophils/100 WBC (Bld) 0.2 % Normal 0.2-2.0 [facility] Comment on above: Performed By: #### C BC ####[facility] Rhvwpertfr7461 [place] [address]Dr. Ivette Hernandez EO # 0.2 103/ul Normal 0.0-0.7 [facility] Comment on above: Performed By: #### C BC ####[facility] Ckjzetvgcq4600 [place] [address]Dr. Ivette Hernandez Eosinophils/100 WBC (Bld) 1.9 % Normal 0.9-7.0 [facility] Comment on above: Performed By: #### C BC ####[facility] Nrsigmdrkd9292 [place] [address]Dr. Ivette Hernandez Erythrocyte distribution width (RBC) [Ratio] 14.0 % Normal 11.0-15.0 [facility] Comment on above: Performed By: #### C BC ####[facility] Wiwxonbmmb0955 [place] [address]Dr. Ivette Hernandez Hematocrit (Bld) [Volume fraction] 28.7 % Critically low 36.0-48.0 [facility] Comment on above: Performed By: #### C BC ####[facility] Httctatnwn[address] [place], [place] [address]Dr. Ivette Hernandez Hemoglobin (Bld) [Mass/Vol] 8.8 g/dL Critically low 12.0-16.0 [facility] Comment on above: Performed By: #### C BC ####[facility] Phrwmhdzfi0[address] [place], [place] [address]Dr. Cherjun Hernandez IG # 0.05 10e3/ul Critically high 0.00-0.03 [facility] Comment on above: Performed By: #### C BC ####[facility] Hndkchjnus8[address] [place], [place] [address]Dr. Ivette Hernandez IG % 0.5 % Normal 0.0-0.5 [facility] Comment on above: Performed By: #### C BC ####[facility] Gzzrrqkoxx9618[address] [place], [place] [address]Dr. Ivette Hernandez LYMPH # 2.1 103/ul Normal 1.2-3.8 [facility] Comment on above: Performed By: #### C BC ####[facility] Zwksvjfspe1429[address] [place], [place] [address]Dr. Cherjun Hernandez Lymphocytes/100 WBC (Bld) 21.3 % Normal 20.5-60.0 [facility] Comment on above: Performed By: #### C BC ####[facility] Ibzaiydxts926[address] [place], [place] [address]Dr. Cherjun Hernandez MANUAL DIFF REQ NO Normal [facility] Comment on above: Performed By: #### C BC ####[facility] F[address]wujp[address] [place] [address]Dr. Ivette Hernandez MCH (RBC) [Entitic mass] 27.6 pg Normal 26.7-34.0 [facility] Comment on above: Performed By: #### C BC ####[facility] Iibwrafdoi63[address] [place] [address]Dr. Ivette Hernandez MCHC (RBC) [Mass/Vol] 30.7 g/dL Normal 29.9-35.2 [facility] Comment on above: Performed By: #### C BC ####[facility] Lmonxdmtiy524[address] [place], [place] [address]Dr. Ivette David MCV (RBC) [Entitic vol] 90.0 fL Normal 81.0-99.0 [facility] Comment on above: Performed By: #### C BC ####[facility] Pgvqzeqimg115[address] [place], [place] [address]Dr. Ivette David MONO # 0.6 103/ul Normal 0.3-0.8 [facility] Comment on above: Performed By: #### C BC ####[facility] Lcjuvsdhlj725[address] [place], [place] [address]Dr. Cherjun Hernandez Monocytes/100 WBC (Bld) 6.5 % Normal 1.7-12.0 [facility] Comment on above: Performed By: #### C BC ####[facility] Igvnnjobjx615[address] [place], [place] [address]Dr. Ivette Hernandez NEUT # 6.7 103/ul Critically high 1.4-6.5 [facility] Comment on above: Performed By: #### C BC ####[facility] Akxpidenlf133[address] [place], [place] [address]Dr. Ivette David Neutrophils/100 WBC (Bld) 69.6 % Normal 43.0-75.0 [facility] Comment on above: Performed By: #### C BC ####[facility] Audmbvxvxh90[address] [place], [place] [address]Dr. Ivette David Platelet mean volume (Bld) [Entitic vol] 9.6 fL Normal 9.5-13.5 [facility] Comment on above: Performed By: #### C BC ####[facility] W[address]ixkkimbs36[address] [place] [address]Dr. Ivette Hernandez PLT 236 103/ul Normal 150-450 [facility] Comment on above: Performed By: #### C BC ####[facility] Suemkoesrd9919[address] [place], [place] [address]Dr. Ivette Hernandez RBC 3.19 106/ul Critically low 4.20-5.40 [facility] Comment on above: Performed By: #### C BC ####[facility] Wjrmvzoppa0125[address] [place], [place] [address]Dr. Ivette Hernandez WBC 9.6 103/ul Normal 4.0-11.0 [facility] Comment on above: Performed By: #### C BC ####[facility] Eohnjfovie7437[address] [place], [place] [address]Dr. Ivette Hernandez GI PANEL (PCR)on 02-27-2022 Adenovirus F 40/41 Not detected Normal NOT DETECTED [facility] Comment on above: Performed By: #### G IPANEL ####[facility] Jfoygkxdjf403[address] [place], [place] [address]Dr. Ivette Hernandez Astrovirus Not detected Normal NOT DETECTED [facility] Comment on above: Performed By: #### G IPANEL ####[facility] Zgrfnabjla76[address] [place], [place] [address]Dr. Ivette Hernandez C. Diff toxin A/B Detected Critically abnormal NOT DETECTED [facility] Comment on above: Performed By: #### G IPANEL ####[facility] Qtdtyypyus7237[address] [place], [place] [address]Dr. Ivette Hernandez Campylobacter Not detected Normal NOT DETECTED [facility] Comment on above: Performed By: #### G IPANEL ####[facility] Okfwlastdw947[address] [place], [place] [address]Dr. Ivette Hernandez Cryptosporidium Not detected Normal NOT DETECTED [facility] Comment on above: Performed By: #### G IPANEL ####[facility] Nhuseohcss16450[address] [place], [place] [address]Dr. Ivette Hernandez Cyclos. Cayetanensis Not detected Normal NOT DETECTED [facility] Comment on above: Performed By: #### G IPANEL ####[facility] Eyetkzewww4297[address] [place], [place] [address]Dr. Ivette Hernandez E. Coli O157 Not Applicable Normal Not Applicable [facility] Comment on above: Performed By: #### G IPANEL ####[facility] Nlvdlgsrao119[address] [place], [place] [address]Dr. Cherjun Hernandez E. histolytica Not detected Normal NOT DETECTED [facility] Comment on above: Performed By: #### G IPANEL ####[facility] Nunnwqzoiy99[address] [place], [place] [address]Dr. [facility] EA[facility] Not detected Normal NOT DETECTED [facility] Comment on above: Performed By: #### G IPANEL ####[facility] Wafusimokn926[address] [place], [place] [address]Dr. [facility] EIEC Not detected Normal NOT DETECTED [facility] Comment on above: Performed By: #### G IPANEL ####[facility] Qcnzmjyoie437[address] [place], [place] [address]Dr. Cherjun Hernandez EPEC Not detected Normal NOT DETECTED [facility] Comment on above: Performed By: #### G IPANEL ####[facility] Qcgybtixul44280[address] [place], [place] [address]Dr. jun Hernandez ETEC Not detected Normal NOT DETECTED [facility] Comment on above: Performed By: #### G IPANEL ####[facility] Dejgdklegl078[address] [place], [place] [address]Dr. Ivette Hernandez G. Lamblia Not detected Normal NOT DETECTED [facility] Comment on above: Performed By: #### G IPANEL ####[facility] Dnhprtzium087[address] [place], [place] [address]Dr. Ivette Hernandez GIPANEL CONTROLS PASSED Normal [facility] Comment on above: Performed By: #### G IPANEL ####[facility] Hovcixdsxr3814[address] [place], [place] [address]Dr. Ivette Hernandez GIPNL GITA HEADER GI PANEL BACTERIA Normal [facility] Comment on above: Performed By: #### G IPANEL ####[facility] Ytybsrurcu[address] [place] [address]Dr. Cherjun Hernandez [facility] GI PANEL DIARRHEAGEN IC E.COLI / SHIGELLA Normal [facility] Comment on above: Performed By: #### G IPANEL ####[facility] Cxgriqomnj878[address] [place], [place] [address]Dr. Cherjun Hernandez [facility] INFO SEE BELOW Normal [facility] Comment on above: Result Comment: EAEC - Enteroaggregative E. Coli EPEC- Enteropathogenic E. Coli ETEC- Enterotoxigenic E. Coli lt/st STEC- Shigella-like toxin-producing E. Coli stx1/stx2 EIEC- Shigella/Enteroinvasive E. Coli Performed By: #### G IPANEL ####[facility] Wfjxqsrgnw3937[address] [place], [place] [address]Dr. Ivette Hernandez GIPNLHD PARASITES GI PANEL PARASITES Normal [facility] Comment on above: Performed By: #### G IPANEL ####[facility] Hssxhvspre279[address] [place], [place] [address]Dr. Ivette Hernandez [facility] GI PANEL VIRUSES Normal [facility] Comment on above: Performed By: #### G IPANEL ####[facility] Czgndjzrhx33350[address] [place], [place] [address]Dr. Ivette Hernandez Norovirus GI/GII Not detected Normal NOT DETECTED [facility] Comment on above: Performed By: #### G IPANEL ####[facility] Ymyyhystei138[address] [place], [place] [address]Dr. Ivette Hernandez P. Shigelloides Not detected Normal NOT DETECTED [facility] Comment on above: Performed By: #### G IPANEL ####[facility] Ptffqssasn049[address] [place], [place] [address]Dr. Ivette Hernandez Rotavirus A Not detected Normal NOT DETECTED [facility] Comment on above: Performed By: #### G IPANEL ####[facility] Npngamixyo4829[address] [place], [place] [address]Dr. Ivette Hernandez Salmonella Not detected Normal NOT DETECTED [facility] Comment on above: Performed By: #### G IPANEL ####[facility] Qrgktfkisc699[address] [place], [place] [address]Dr. Ivette Hernandez Sapovirus Not detected Normal NOT DETECTED [facility] Comment on above: Performed By: #### G IPANEL ####[facility] Aweyyyhnae506[address] [place], [place] [address]Dr. Ivette Hernandez STEC Not detected Normal NOT DETECTED [facility] Comment on above: Performed By: #### G IPANEL ####[facility] Disnfudvbb3687[address] [place], [place] [address]Dr. Ivette Hernandez Vibrio Not detected Normal NOT DETECTED [facility] Comment on above: Performed By: #### G IPANEL ####[facility] Wqjdutupbh0497[address] [place], [place] [address]Dr. Ivette Hernandez Vibrio Cholera Not detected Normal NOT DETECTED [facility] Comment on above: Performed By: #### G IPANEL ####[facility] Mioeozmckm70220[address] [place], [place] [address]Dr. Ivette Hernandez Y. Enterocolitica Not detected Normal NOT DETECTED [facility] Comment on above: Performed By: #### G IPANEL ####[facility] Qyhysooogb590[address] [place], [place] [address]Dr. Ivette Hernandez OCC BLD IMMUNO SCREENon 02-01 OCCULT BLOOD Negative Normal NEGATIVE [facility] Comment on above: Performed By: #### O BSCRN ####[facility] Mbkxmfllxh293[address] [place], [place] [address]Dr. Ivette Hernandez PROF 14(COMP METB)on 022 Albumin [Mass/Vol] 2.4 g/dL Critically low 3.4-5.0 [facility] Comment on above: Performed By: #### C MP ####[facility] Kcfmtwhjgy667[address] [place], [place] [address]Dr. Ivette Hernandez Albumin/Globulin [Mass ratio] 0.6 {ratio} Normal [facility] Comment on above: Performed By: #### C MP ####[facility] O[address]utjvuhr[address] [place] [address]Dr. Ivette Hernandez ALP [Catalytic activity/Vol] 68 U/L Normal 46-116 [facility] Comment on above: Performed By: #### C MP ####[facility] Hrttvfgryr6[address] [place] [phone]. Ivette Hernandez ALT [Catalytic activity/Vol] 12 U/L Critically low 14-59 [facility] Comment on above: Performed By: #### C MP ####[facility] Ykyxpzorix2516 [place] [phone]. Ivette Hernandez Anion gap [Moles/Vol] 10.3 mmol/L Normal [facility] Comment on above: Performed By: #### C MP ####[facility] Gdybpuhrun33[address] [place] [phone]. Ivette Hernandez AST [Catalytic activity/Vol] 15 U/L Normal 15-37 [facility] Comment on above: Performed By: #### C MP ####[facility] Obcippsmyk[address] [place] [address]Dr. Ivette Hernandez Bilirubin [Mass/Vol] 0.4 mg/dL Normal 0.2-1.0 [facility] Comment on above: Performed By: #### C MP ####[facility] Ccvdnsrbek84[address] [place] [address]Dr. Ivette Hernandez Calcium [Mass/Vol] 7.5 mg/dL Critically low 8.5-10.1 [facility] Comment on above: Performed By: #### C MP ####[facility] Ehclcymzzv86[address] [place] [address]Dr. Cherjun David Chloride [Moles/Vol] 102 mmol/L Normal 98-107 [facility] Comment on above: Performed By: #### C MP ####[facility] Kaxioyachs20[address] [place] [phone]. Ivette Hernandez CO2 [Moles/Vol] 33.8 mmol/L Critically high 21.0-32.0 [facility] Comment on above: Performed By: #### C MP ####[facility] Emjzfwuhgu[address] [place], [place] [address]Dr. Ivette David Creatinine [Mass/Vol] 1.35 mg/dL Critically high 0.55-1.02 [facility] Comment on above: Performed By: #### C MP ####[facility] Lfxvjadyrd02[address] [place] [phone]. Ivette Hernandez EGFR-AF MOSOTHO 47 mL/min/1.73m2 Critically low >=60 [facility] Comment on above: Performed By: #### C MP ####[facility] Vmxhpefmgi9660 [place] [phone]. Ivette Hernandez EGFR-NON AF MOSOTHO 38 mL/min/1.73m2 Critically low >=60 [facility] Comment on above: Performed By: #### C MP ####[facility] Yuqzmraerz0838 [place] [address]Dr. Ivette Hernandez Globulin (S) [Mass/Vol] 4.0 g/dL Normal [facility] Comment on above: Performed By: #### C MP ####[facility] Eebjpizyew309[address] [place], [place] [address]Dr. Ivette Hernandez Glucose [Mass/Vol] 142 mg/dL Critically high 74-106 [facility] Comment on above: Performed By: #### C MP ####[facility] Dingyuecwz68[address] [place] [address]Dr. Ivette Hernandez Potassium [Moles/Vol] 3.1 mmol/L Critically low 3.5-5.1 [facility] Comment on above: Performed By: #### C MP ####[facility] Zceftsxwej838[address] [place], [place] [address]Dr. Ivette Hernandez Protein [Mass/Vol] 6.4 g/dL Normal 6.4-8.2 [facility] Comment on above: Performed By: #### C MP ####[facility] Gvgntthutj949[address] [place], [place] [address]Dr. Ivette Hernandez Sodium [Moles/Vol] 143 mmol/L Normal 136-145 [facility] Comment on above: Performed By: #### C MP ####[facility] Ncameusemx035[address] [place], [place] [address]Dr. Ivette Hernandez Urea nitrogen [Mass/Vol] 32.0 mg/dL Critically high 7.0-18.0 [facility] Comment on above: Performed By: #### C MP ####[facility] Nsulavqbzi7024 [place] [phone]. Ivette Hernandez Urea nitrogen/Creatinine [Mass ratio] 23.7 mg/mg Normal [facility] Comment on above: Performed By: #### C MP ####[facility] Padncgiqpa9679 [place] [phone]. Ivette David CBC AUTO DIFFon 02-26-2022 BASO # 0.0 103/ul Normal 0.0-0.1 [facility] Comment on above: Performed By: #### C BC ####[facility] Ssvvtzzezf113[address] [place], [place] [address]Dr. Cherjun Hernandez Basophils/100 WBC (Bld) 0.0 % Critically low 0.2-2.0 [facility] Comment on above: Performed By: #### C BC ####[facility] Xsfpzobuht9701[address] [place], [place] [address]Dr. Cherjun Hernandez EO # 0.0 103/ul Normal 0.0-0.7 [facility] Comment on above: Performed By: #### C BC ####[facility] Qoagocmycv3627[address] [place], [place] [address]Dr. Ivette David Eosinophils/100 WBC (Bld) 0.0 % Critically low 0.9-7.0 [facility] Comment on above: Performed By: #### C BC ####[facility] Gjwwcvlshd27260[address] [place], [place] [address]Dr. Ivette Hernandez Erythrocyte distribution width (RBC) [Ratio] 13.9 % Normal 11.0-15.0 [facility] Comment on above: Performed By: #### C BC ####[facility] Jqeooclsxg9[address] [place], [place] [address]Dr. Ivette Hernandez Hematocrit (Bld) [Volume fraction] 25.9 % Critically low 36.0-48.0 [facility] Comment on above: Performed By: #### C BC ####[facility] Eghvfqjeqf144[address] [place], [place] [address]Dr. Ivette David Hemoglobin (Bld) [Mass/Vol] 8.2 g/dL Critically low 12.0-16.0 [facility] Comment on above: Performed By: #### C BC ####[facility] Vvnzinslut2426 [place] [address]DrJesse Hernandez IG # 0.05 10e3/ul Critically high 0.00-0.03 [facility] Comment on above: Performed By: #### C BC ####[facility] Lcmcsdlcqv2623 [place] [address]DrJesse Hernandez IG % 0.9 % Critically high 0.0-0.5 [facility] Comment on above: Performed By: #### C BC ####[facility] Ulqzalcirk7425[address] [place], [place] [address]DrJesse Hernandez LYMPH # 1.0 103/ul Critically low 1.2-3.8 [facility] Comment on above: Performed By: #### C BC ####[facility] Uosovlnrmb4725[address] [place], [place] [address]DrJesse Hernandez Lymphocytes/100 WBC (Bld) 17.4 % Critically low 20.5-60.0 [facility] Comment on above: Performed By: #### C BC ####[facility] Mehqmutlgp6769[address] [place], [place] [address]DrJesse Hernandez MANUAL DIFF REQ NO Normal [facility] Comment on above: Performed By: #### C BC ####[facility] Fttfypxngr701[address] [place], [place] [address]DrJesse Hernandez MCH (RBC) [Entitic mass] 28.3 pg Normal 26.7-34.0 [facility] Comment on above: Performed By: #### C BC ####[facility] Pnlkpajamk178[address] [place], [place] [address]DrJesse Cherjun Hernandez MCHC (RBC) [Mass/Vol] 31.7 g/dL Normal 29.9-35.2 [facility] Comment on above: Performed By: #### C BC ####[facility] Xgcddyestb5976 [place] [address]DrJesse Hernandez MCV (RBC) [Entitic vol] 89.3 fL Normal 81.0-99.0 [facility] Comment on above: Performed By: #### C BC ####[facility] Ratcealnvg4366 [place] [address]Dr. Ivette Hernandez MONO # 0.2 103/ul Critically low 0.3-0.8 [facility] Comment on above: Performed By: #### C BC ####[facility] Egdvnelcza[address] [place] [address]Dr. Ivette Hernandez Monocytes/100 WBC (Bld) 3.6 % Normal 1.7-12.0 [facility] Comment on above: Performed By: #### C BC ####[facility] Qkdagmshrt7416 [place] [address]Dr. Ivette Hernandez NEUT # 4.6 103/ul Normal 1.4-6.5 [facility] Comment on above: Performed By: #### C BC ####[facility] Tlusmgxoyj9947[address] [place], [place] [address]Dr. Ivette Hernandez Neutrophils/100 WBC (Bld) 78.1 % Critically high 43.0-75.0 [facility] Comment on above: Performed By: #### C BC ####[facility] Junrfxwwxk81980[address] [place], [place] [address]Dr. Ivette Hernandez Platelet mean volume (Bld) [Entitic vol] 9.5 fL Normal 9.5-13.5 [facility] Comment on above: Performed By: #### C BC ####[facility] Aixvvaxuvb58[address] [place] [address]Dr. Ivette Hernandez PLT 195 103/ul Normal 150-450 [facility] Comment on above: Performed By: #### C BC ####[facility] Eckeunnnoj0652 [place] [phone]. Ivette Hernandez RBC 2.90 106/ul Critically low 4.20-5.40 [facility] Comment on above: Performed By: #### C BC ####[facility] Itypkgjtob1763 [place] [address]Dr. Cherjun Hernandez WBC 5.8 103/ul Normal 4.0-11.0 [facility] Comment on above: Performed By: #### C BC ####[facility] Jxdymmgpmg0392 [place] [address]Dr. Ivette Hernandez ECHOCARDIO M/2D COMPLETEon 1 ECHOCARDIO M/2D COMPLETE Normal [facility] PROF 14(COMP METB)on 022 Albumin [Mass/Vol] 2.3 g/dL Critically low 3.4-5.0 [facility] Comment on above: Performed By: #### C MP ####[facility] Ihttdbjhvk1313 [place] [address]Dr. Ivette Hernandez Albumin/Globulin [Mass ratio] 0.6 {ratio} Normal [facility] Comment on above: Performed By: #### C MP ####[facility] Bobeyoscsv647[address] [place], [place] [address]Dr. Ivette Hernandez ALP [Catalytic activity/Vol] 67 U/L Normal 46-116 [facility] Comment on above: Performed By: #### C MP ####[facility] Ttjxmfsoox504[address] [place], [place] [address]Dr. Ivette Hernandez ALT [Catalytic activity/Vol] 15 U/L Normal 14-59 [facility] Comment on above: Performed By: #### C MP ####[facility] Fmlnaaznvq804[address] [place], [place] [address]Dr. Ivette Hernandez Anion gap [Moles/Vol] 7.6 mmol/L Normal [facility] Comment on above: Performed By: #### C MP ####[facility] Keqokbjsbt60480[address] [place], [place] [address]Dr. Ivette Hernandez AST [Catalytic activity/Vol] 12 U/L Critically low 15-37 [facility] Comment on above: Performed By: #### C MP ####[facility] Xfbjxvoieu386[address] [place], [place] [address]Dr. Ivette Hernandez Bilirubin [Mass/Vol] 0.3 mg/dL Normal 0.2-1.0 [facility] Comment on above: Performed By: #### C MP ####[facility] Cadmdtcyfx257[address] [place], [place] [address]Dr. Ivette Hernandez Calcium [Mass/Vol] 6.3 mg/dL Critically low 8.5-10.1 [facility] Comment on above: Performed By: #### C MP ####[facility] Zjeipwhhfr711[address] [place], [place] [address]Dr. Ivette Hernandez Chloride [Moles/Vol] 104 mmol/L Normal 98-107 [facility] Comment on above: Performed By: #### C MP ####[facility] Nlddsawawb360[address] [place], [place] [address]Dr. Cherjun David CO2 [Moles/Vol] 34.8 mmol/L Critically high 21.0-32.0 [facility] Comment on above: Performed By: #### C MP ####[facility] Dczajbmwrp248[address] [place], [place] [address]Dr. Ivette Hernandez Creatinine [Mass/Vol] 1.30 mg/dL Critically high 0.55-1.02 [facility] Comment on above: Performed By: #### C MP ####[facility] Itmwrbmzjt255[address] [place], [place] [address]Dr. Ivette Hernandez EGFR-AF MOSOTHO 49 mL/min/1.73m2 Critically low >=60 [facility] Comment on above: Performed By: #### C MP ####[facility] Zustpxmcph8379[address] [place], [place] [address]Dr. Cherjun David EGFR-NON AF MOSOTHO 40 mL/min/1.73m2 Critically low >=60 [facility] Comment on above: Performed By: #### C MP ####[facility] Lxkaiagxda0989[address] [place], [place] [address]Dr. Ivette Hernandez Globulin (S) [Mass/Vol] 4.1 g/dL Normal [facility] Comment on above: Performed By: #### C MP ####[facility] Qclzdtezdp295[address] [place], [place] [address]Dr. Ivette Hernandez Glucose [Mass/Vol] 130 mg/dL Critically high 74-106 [facility] Comment on above: Performed By: #### C MP ####[facility] Saeqgfnysj359[address] [place], [place] [address]Dr. Ivette Hernandez Potassium [Moles/Vol] 3.4 mmol/L Critically low 3.5-5.1 [facility] Comment on above: Performed By: #### C MP ####[facility] Lcdzjharlh095[address] [place], [place] [address]Dr. Ivette Hernandez Protein [Mass/Vol] 6.4 g/dL Normal 6.4-8.2 [facility] Comment on above: Performed By: #### C MP ####[facility] Zxmhssngdg8627[address] [place], [place] [address]Dr. Ivette Hernandez Sodium [Moles/Vol] 143 mmol/L Normal 136-145 [facility] Comment on above: Performed By: #### C MP ####[facility] Nhxcvxcfkb529[address] [place], [place] [address]Dr. Ivette David Urea nitrogen [Mass/Vol] 24.0 mg/dL Critically high 7.0-18.0 [facility] Comment on above: Performed By: #### C MP ####[facility] Vcwriocvds178[address] [place], [place] [address]Dr. Ivette David Urea nitrogen/Creatinine [Mass ratio] 18.5 mg/mg Normal [facility] Comment on above: Performed By: #### C MP ####[facility] Iygvvvtafu426[address] [place], [place] [address]Dr. Ivette David US KIDNEYS BLADDERon 022 US KIDNEYS BLADDER Normal [facility] BNPon 02-25-2022 Natriuretic peptide B (Bld) [Mass/Vol] 93232.0 pg/mL Critically high <=900.0 [facility] Comment on above: Performed By: #### M G, BMP, BNP ####[facility] Bwnnvtvjzz[address] [place], [place] [address]Dr. Ivette David CBC AUTO DIFFon 02-25-2022 BASO # 0.0 103/ul Normal 0.0-0.1 [facility] Comment on above: Performed By: #### C BC ####[facility] Vzeljrmxxf2139[address] [place], [place] [address]Dr. Ivette David Basophils/100 WBC (Bld) 0.4 % Normal 0.2-2.0 [facility] Comment on above: Performed By: #### C BC ####[facility] Bxptlsiplt145[address] [place], [place] [address]Dr. Ivette Hernandez EO # 0.1 103/ul Normal 0.0-0.7 [facility] Comment on above: Performed By: #### C BC ####[facility] Btcwrownem1101[address] [place], [place] [address]Dr. Ivette Hernandez Eosinophils/100 WBC (Bld) 0.8 % Critically low 0.9-7.0 [facility] Comment on above: Performed By: #### C BC ####[facility] Feneijdfde1947[address] [place], [place] [address]Dr. Ivette Hernandez Erythrocyte distribution width (RBC) [Ratio] 14.3 % Normal 11.0-15.0 [facility] Comment on above: Performed By: #### C BC ####[facility] Qcagnesecj158[address] [place], [place] [address]Dr. Ivette Hernandez Hematocrit (Bld) [Volume fraction] 29.3 % Critically low 36.0-48.0 [facility] Comment on above: Performed By: #### C BC ####[facility] Osdekxdmzz[address] [place], [place] [address]DrJesse Hernandez Hemoglobin (Bld) [Mass/Vol] 9.2 g/dL Critically low 12.0-16.0 [facility] Comment on above: Performed By: #### C BC ####[facility] Ccqesrkxlq[address] [place], [place] [address]DrJesse Hernandez IG # 0.04 10e3/ul Critically high 0.00-0.03 [facility] Comment on above: Performed By: #### C BC ####[facility] Rrrsmmrjzp[address] [place], [place] [address]DrJesse Hernandez IG % 0.4 % Normal 0.0-0.5 [facility] Comment on above: Performed By: #### C BC ####[facility] Jzbbzjghqo408[address] [place], [place] [address]DrJesse Hernandez LYMPH # 1.9 103/ul Normal 1.2-3.8 [facility] Comment on above: Performed By: #### C BC ####[facility] Xbfigejwph[address] [place] [address]Dr. Ivette Hernandez Lymphocytes/100 WBC (Bld) 17.5 % Critically low 20.5-60.0 [facility] Comment on above: Performed By: #### C BC ####[facility] Pfnymiijfk[address] [place], [place] [address]Dr. Ivette Hernandez MANUAL DIFF REQ NO Normal [facility] Comment on above: Performed By: #### C BC ####[facility] Qyiagchewq489[address] [place], [place] [address]Dr. Ivette Hernandez MCH (RBC) [Entitic mass] 28.6 pg Normal 26.7-34.0 [facility] Comment on above: Performed By: #### C BC ####[facility] Pnhzjnaqsr568[address] [place], [place] [address]Dr. Ivette Hernandez MCHC (RBC) [Mass/Vol] 31.4 g/dL Normal 29.9-35.2 [facility] Comment on above: Performed By: #### C BC ####[facility] Ublsqiayiw853[address] [place], [place] [address]DrJesse Hernandez MCV (RBC) [Entitic vol] 91.0 fL Normal 81.0-99.0 [facility] Comment on above: Performed By: #### C BC ####[facility] Tefvtisxpn754[address] [place], [place] [address]Dr. Ivette Hernandez MONO # 0.6 103/ul Normal 0.3-0.8 [facility] Comment on above: Performed By: #### C BC ####[facility] Spvxsqrafe66[address] [place], [place] [address]Dr. Ivette Hernandez Monocytes/100 WBC (Bld) 5.4 % Normal 1.7-12.0 [facility] Comment on above: Performed By: #### C BC ####[facility] Cskurayrhy813[address] [place], [place] [address]Dr. Ivette Hernandez NEUT # 8.1 103/ul Critically high 1.4-6.5 [facility] Comment on above: Performed By: #### C BC ####[facility] Gczetrbedw8[address] [place] [address]Dr. Ivette Hernandez Neutrophils/100 WBC (Bld) 75.5 % Critically high 43.0-75.0 [facility] Comment on above: Performed By: #### C BC ####[facility] Rtyvzsvhur3236 [place] [address]Dr. Ivette Hernandez Platelet mean volume (Bld) [Entitic vol] 9.7 fL Normal 9.5-13.5 [facility] Comment on above: Performed By: #### C BC ####[facility] Lyxycloesk457[address] [place], [place] [address]Dr. Ivette Hernandez PLT 242 103/ul Normal 150-450 [facility] Comment on above: Performed By: #### C BC ####[facility] Pwrxmtsgtn02[address] [place], [place] [address]Dr. Ivette Hernandez RBC 3.22 106/ul Critically low 4.20-5.40 [facility] Comment on above: Performed By: #### C BC ####[facility] Ebjnstyzfx[address] [place], [place] [address]Dr. Ivette Hernandez WBC 10.8 103/ul Normal 4.0-11.0 [facility] Comment on above: Performed By: #### C BC ####[facility] Ldtvsysgvp468[address] [place], [place] [address]Dr. Ivette David MAGNESIUMon 02-25-2022 Magnesium [Mass/Vol] 1.3 mg/dL Critically low 1.8-2.4 [facility] Comment on above: Performed By: #### M G, BMP, BNP ####[facility] Sgahhfigpk058[address] [place], [place] [address]Dr. Ivette Hernandez POINT OF CARE GLUCOSEon 02-01 Glucose [Mass/Vol] 191 mg/dL Critically high 74-106 [facility] Comment on above: Performed By: #### P OCGLUC ####[facility] Oeyvpfoztn[address] [place], [place] [address]Dr. Ivette Hernandez PROF CHEM 8 (BAS METB)on Anion gap [Moles/Vol] 7.7 mmol/L Normal [facility] Comment on above: Performed By: #### M Rosi, BMP, BNP ####[facility] Srcffqnspw6[address] [place] [address]Dr. Ivette Hernandez Calcium [Mass/Vol] 6.4 mg/dL Critically low 8.5-10.1 Th [facility] Comment on above: Performed By: #### M G, BMP, BNP ####[facility] Qdpwbnsxhk4716[address] [place], [place] [address]Dr. Ivette Hernandez Chloride [Moles/Vol] 105 mmol/L Normal 98-107 [facility] Comment on above: Performed By: #### M Rosi, BMP, BNP ####[facility] Xpjucbxddv911[address] [place], [place] [address]Dr. Ivette Hernandez CO2 [Moles/Vol] 37.4 mmol/L Critically high 21.0-32.0 [facility] Comment on above: Performed By: #### M Rosi, BMP, BNP ####[facility] Jzegmtwras[address] [place], [place] [address]Dr. Ivette Hernandez Creatinine [Mass/Vol] 1.41 mg/dL Critically high 0.55-1.02 [facility] Comment on above: Performed By: #### M G, BMP, BNP ####[facility] Jfwrzfoetv0085 [place] [address]Dr. Ivette Hernandez EGFR-AF MOSOTHO 44 mL/min/1.73m2 Critically low >=60 [facility] Comment on above: Performed By: #### M G, BMP, BNP ####[facility] Dvfpeifzqb493[address] [place], [place] [address]Dr. Ivette Hernandez EGFR-NON AF MOSOTHO 37 mL/min/1.73m2 Critically low >=60 [facility] Comment on above: Performed By: #### M G, BMP, BNP ####[facility] Cwsvsapqba725[address] [place], [place] [address]Dr. Ivette Hernandez Glucose [Mass/Vol] 132 mg/dL Critically high 74-106 [facility] Comment on above: Performed By: #### M G, BMP, BNP ####[facility] Ijugsaulha4047 [place] [address]Dr. Ivette Hernandez Potassium [Moles/Vol] 3.1 mmol/L Critically low 3.5-5.1 [facility] Comment on above: Performed By: #### M G, BMP, BNP ####[facility] Somssdyapg9183 [place] [address]Dr. Ivette Hernandez Sodium [Moles/Vol] 147 mmol/L Critically high 136-145 [facility] Comment on above: Performed By: #### M G, BMP, BNP ####[facility] Ryvypchnjj5902 [place] [address]Dr. Ivette Hernandez Urea nitrogen [Mass/Vol] 15.0 mg/dL Normal 7.0-18.0 [facility] Comment on above: Performed By: #### M Rosi BMP, BNP ####[facility] Vyohecaszt3209[address] [place], [place] [address]Dr. Ivette Hernandez Urea nitrogen/Creatinine [Mass ratio] 10.6 mg/mg Normal [facility] Comment on above: Performed By: #### M Rosi BMP, BNP ####[facility] Fszbtudmcy04[address] [place], [place] [address]Dr. Ivette David TROPONIN, HIGH SENSITIVITYon 02-25-2022 HSTROP 15.5 pg/mL Normal 4.0-51.3 [facility] Comment on above: Result Comment: CUT- OFF POINTS HAVE BEEN ESTABLISHED BASED ON THE FOURTH UNIVERSAL DEFINITIONS OF MYOCARDIALINFARCTION. THE UPPER REFERENCE LIMIT (URL) OF TROPONIN, DEFINED THE 99TH PERCENTILE OFcTnI DISTRIBUTION IN A REFERENCE POPULATION, HAS BEEN CONFIRMED THE DECISION THRESHOLDFOR NC DIAGNOSIS. Performed By: #### H STROPN ####[facility] Sbvhjejlgd389[address] [place], [place] [address]Dr. Cherjun David HSTROP 17.6 pg/mL Normal 4.0-51.3 [facility] Comment on above: Result Comment: CUT- OFF POINTS HAVE BEEN ESTABLISHED BASED ON THE FOURTH UNIVERSAL DEFINITIONS OF MYOCARDIALINFARCTION. THE UPPER REFERENCE LIMIT (URL) OF TROPONIN, DEFINED THE 99TH PERCENTILE OFcTnI DISTRIBUTION IN A REFERENCE POPULATION, HAS BEEN CONFIRMED THE DECISION THRESHOLDFOR NC DIAGNOSIS. Performed By: #### H STROPN ####[facility] Uylspjjfcb012[address] [place], [place] [address]Dr. Ivette Hernandez BNPon 02-24-2022 Natriuretic peptide B (Bld) [Mass/Vol] 90506.0 pg/mL Critically high <=900.0 [facility] Comment on above: Performed By: #### B CELL INSTALLER, HSTROPN, CMP ####[facility] Xsgnaffbrf357[address] [place], [place] [address]Dr. Ivette David CBC AUTO DIFFon 02-24-2022 BASO # 0.1 103/ul Normal 0.0-0.1 [facility] Comment on above: Performed By: #### C BC ####[facility] Fuqkbazpyu433[address] [place], [place] [address]Dr. Ivette Hernandez Basophils/100 WBC (Bld) 0.5 % Normal 0.2-2.0 [facility] Comment on above: Performed By: #### C BC ####[facility] Epoipoxdjn[address] [place], [place] [address]Dr. Ivette Hernandez EO # 0.2 103/ul Normal 0.0-0.7 [facility] Comment on above: Performed By: #### C BC ####[facility] Qqxefallmn038[address] [place], [place] [address]Dr. Ivette Hernandez Eosinophils/100 WBC (Bld) 2.3 % Normal 0.9-7.0 [facility] Comment on above: Performed By: #### C BC ####[facility] Ptbvhlicpm819[address] [place], [place] [address]Dr. Ivette Hernandez Erythrocyte distribution width (RBC) [Ratio] 14.2 % Normal 11.0-15.0 [facility] Comment on above: Performed By: #### C BC ####[facility] Hrftsxnsso396[address] [place], [place] [address]Dr. Ivette Hernandez Hematocrit (Bld) [Volume fraction] 30.2 % Critically low 36.0-48.0 [facility] Comment on above: Performed By: #### C BC ####[facility] Qcsjhbzaug3230 [place] [address]Dr. Ivette David Hemoglobin (Bld) [Mass/Vol] 9.3 g/dL Critically low 12.0-16.0 [facility] Comment on above: Performed By: #### C BC ####[facility] Cwoslbrtjb23[address] [place] [address]DrJesse Kwonjun David IG # 0.04 10e3/ul Critically high 0.00-0.03 [facility] Comment on above: Performed By: #### C BC ####[facility] Xcgekchmgq225[address] [place], [place] [address]Dr. Ivette Hernandez IG % 0.4 % Normal 0.0-0.5 [facility] Comment on above: Performed By: #### C BC ####[facility] Zzlbnzbhjk[address] [place], [place] [address]DrJesse Hernandez LYMPH # 2.6 103/ul Normal 1.2-3.8 [facility] Comment on above: Performed By: #### C BC ####[facility] Hcyuwhklui[address] [place], [place] [address]DrJesse Hernandez Lymphocytes/100 WBC (Bld) 27.1 % Normal 20.5-60.0 [facility] Comment on above: Performed By: #### C BC ####[facility] Znpjnrilyl34[address] [place] [address]Dr. Ivette Hernandez MANUAL DIFF REQ NO Normal [facility] Comment on above: Performed By: #### C BC ####[facility] Agqvkjrzzn5089 [place] [address]DrJesse Hernandez MCH (RBC) [Entitic mass] 27.8 pg Normal 26.7-34.0 [facility] Comment on above: Performed By: #### C BC ####[facility] Uyalwvmsis0687 [place] [address]Dr. Ivette Hernandez MCHC (RBC) [Mass/Vol] 30.8 g/dL Normal 29.9-35.2 [facility] Comment on above: Performed By: #### C BC ####[facility] Hjsnbihhfk7377 [place] [id number]. Ivette Hernandez MCV (RBC) [Entitic vol] 90.4 fL Normal 81.0-99.0 [facility] Comment on above: Performed By: #### C BC ####[facility] Xylzpqfymn6802 [place] [id number]. Ivette David MONO # 0.6 103/ul Normal 0.3-0.8 [facility] Comment on above: Performed By: #### C BC ####[facility] Ubtjvyodnq[address] [place], [place] [address]Dr. Ivette David Monocytes/100 WBC (Bld) 6.1 % Normal 1.7-12.0 [facility] Comment on above: Performed By: #### C BC ####[facility] Qfuvschsvn[address] [place], [place] [address]Dr. Ivette Hernandez NEUT # 6.1 103/ul Normal 1.4-6.5 [facility] Comment on above: Performed By: #### C BC ####[facility] Zywcbwbven363[address] [place], [place] [address]Dr. Ivette David Neutrophils/100 WBC (Bld) 63.6 % Normal 43.0-75.0 [facility] Comment on above: Performed By: #### C BC ####[facility] Vzsycoyvih[address] [place], [place] [address]Dr. Ivette David Platelet mean volume (Bld) [Entitic vol] 9.2 fL Critically low 9.5-13.5 [facility] Comment on above: Performed By: #### C BC ####[facility] Im[address] [place], [place] [address]Dr. Ivette David PLT 267 103/ul Normal 150-450 [facility] Comment on above: Performed By: #### C BC ####[facility] Ipgvfcbpky2883 [place] [phone]. Cherjun Hernandez RBC 3.34 106/ul Critically low 4.20-5.40 [facility] Comment on above: Performed By: #### C BC ####[facility] [address]rmoo80[address] [place], [place] [address]Hy. Ivette Hernandez WBC 9.6 103/ul Normal 4.0-11.0 [facility] Comment on above: Performed By: #### C BC ####[facility] Ujfygqjexs[address] [place], [place] [address]Wq. Ivette Hernandez Covid-19 PCR (CVDTB)on 02-01 SARS-CoV-2 (COVID-19) RNA MARRY+probe Ql (Unsp spec) Not detected Normal NOT DETECTED [facility] Comment on above: Result Comment: When diagnostic [...] for this test is supported by the Security Orderly of Health and Human Service's declaration that [...] be used). Performed By: #### C VDTBH ####[facility] Xyfmuvkvjv1470 [place], [place] [address]Rv. Ivette Hernandez IRON AND TIBCon 02-24-2022 % SATURATION 13.8 % Normal [facility] Comment on above: Performed By: #### V ITAD, FETIBC, B12FOL ####[facility] Woqyndjagf1020 [place], [place] [address]Sw. Ivette Hernandez Iron [Mass/Vol] 26.0 ug/dL Critically low 50.0-170.0 [facility] Comment on above: Performed By: #### V ITAD, FETIBC, B12FOL ####[facility] Hebxqjtuua9[address] [place] [address]Dr. Ivette Hernandez TIBC DIRECT 188.0 ug/dL Critically low 250.0-450.0 [facility] Comment on above: Performed By: #### V ITAD, FETIBC, B12FOL ####[facility] Dcjazkzirj6716 [place] [address]Dr. Ivette Hernandez PROF 14(COMP METB)on 02-24- 022 Albumin [Mass/Vol] 2.6 g/dL Critically low 3.4-5.0 [facility] Comment on above: Performed By: #### B CELL INSTALLER, HSTROPN, CMP ####[facility] Oirhnzwofy69[address] [place] [address]Dr. Ivette Hernandez Albumin/Globulin [Mass ratio] 0.6 {ratio} Normal [facility] Comment on above: Performed By: #### B CELL INSTALLER, HSTROPN, CMP ####[facility] Mobvpdodih3265 [place] [address]Dr. Ivette Hernandez ALP [Catalytic activity/Vol] 79 U/L Normal 46-116 [facility] Comment on above: Performed By: #### B CELL INSTALLER, HSTROPN, CMP ####[facility] Npktkmodla9224 [place] [address]Dr. Ivette Hernandez ALT [Catalytic activity/Vol] 18 U/L Normal 14-59 [facility] Comment on above: Performed By: #### B CELL INSTALLER, HSTROPN, CMP ####[facility] Ozowuywywz7462 [place] [address]Dr. Ivette Hernandez Anion gap [Moles/Vol] 7.4 mmol/L Normal [facility] Comment on above: Performed By: #### B CELL INSTALLER, HSTROPN, CMP ####[facility] Eqkdbwzklv1938 [place] [address]Dr. Ivette Hernandez AST [Catalytic activity/Vol] 14 U/L Critically low 15-37 [facility] Comment on above: Performed By: #### B CELL INSTALLER, HSTROPN, CMP ####[facility] Wgrnixkoov4047 [place] [address]Dr. Ivette Hernandez Bilirubin [Mass/Vol] 0.4 mg/dL Normal 0.2-1.0 [facility] Comment on above: Performed By: #### B CELL INSTALLER, HSTROPN, CMP ####[facility] Udamrsfbxv5065 [place] [address]Dr. Ivette Hernandez Calcium [Mass/Vol] 6.3 mg/dL Critically low 8.5-10.1 [facility] Comment on above: Performed By: #### B CELL INSTALLER, HSTROPN, CMP ####[facility] Uqjioebtcw24[address] [place], [place] [address]Dr. Ivette Hernandez Chloride [Moles/Vol] 108 mmol/L Critically high 98-107 [facility] Comment on above: Performed By: #### B CELL INSTALLER, HSTROPN, CMP ####[facility] Qxktcpawua8937[address] [place], [place] [address]Dr. Ivette Hernandez CO2 [Moles/Vol] 31.7 mmol/L Normal 21.0-32.0 [facility] Comment on above: Performed By: #### B CELL INSTALLER, HSTROPN, CMP ####[facility] Ggerxnteks[address] [place], [place] [address]Dr. Ivette Hernandez Creatinine [Mass/Vol] 1.50 mg/dL Critically high 0.55-1.02 [facility] Comment on above: Performed By: #### B CELL INSTALLER, HSTROPN, CMP ####[facility] Tuvsbnfhdk9[address] [place], [place] [address]Dr. Ivette Hernandez EGFR-AF MOSOTHO 41 mL/min/1.73m2 Critically low >=60 [facility] Comment on above: Performed By: #### B CELL INSTALLER, HSTROPN, CMP ####[facility] Xfjmbtkqkz12[address] [place], [place] [address]Dr. Ivette Hernandez EGFR-NON AF MOSOTHO 34 mL/min/1.73m2 Critically low >=60 [facility] Comment on above: Performed By: #### B CELL INSTALLER, HSTROPN, CMP ####[facility] Hlbricaacl4992 [place] [address]Dr. Ivette Hernandez Globulin (S) [Mass/Vol] 4.3 g/dL Normal [facility] Comment on above: Performed By: #### B CELL INSTALLER, HSTROPN, CMP ####[facility] Ervsuathth[address] [place], [place] [address]Dr. Ivette Hernandez Glucose [Mass/Vol] 116 mg/dL Critically high 74-106 [facility] Comment on above: Performed By: #### B CELL INSTALLER, HSTROPN, CMP ####[facility] Tfrzvlkuds[address] [place], [place] [address]Dr. Ivette Hernandez Potassium [Moles/Vol] 3.1 mmol/L Critically low 3.5-5.1 [facility] Comment on above: Performed By: #### B CELL INSTALLER, HSTROPN, CMP ####[facility] Hevqzlugno[address] [place], [place] [address]Dr. Ivette Hernandez Protein [Mass/Vol] 6.9 g/dL Normal 6.4-8.2 [facility] Comment on above: Performed By: #### B CELL INSTALLER, HSTROPN, CMP ####[facility] Huremdghci994[address] [place], [place] [address]Dr. Ivette Hernandez Sodium [Moles/Vol] 144 mmol/L Normal 136-145 [facility] Comment on above: Performed By: #### B CELL INSTALLER, HSTROPN, CMP ####[facility] Auaynqiswr[address] [place], [place] [address]Dr. Ivette Hernandez Urea nitrogen [Mass/Vol] 16.0 mg/dL Normal 7.0-18.0 [facility] Comment on above: Performed By: #### B CELL INSTALLER, HSTROPN, CMP ####[facility] Nsbtobfcem9[address] [place], [place] [address]Dr. Ivette Hernandez Urea nitrogen/Creatinine [Mass ratio] 10.7 mg/mg Normal [facility] Comment on above: Performed By: #### B CELL INSTALLER, HSTROPN, CMP ####[facility] Xlugevfnjm[address] [place], [place] [address]Dr. Ivette Hernandez TROPONIN, HIGH SENSITIVITYon 02-24-2022 HSTROP 20.8 pg/mL Normal 4.0-51.3 [facility] Comment on above: Result Comment: CUT- OFF POINTS HAVE BEEN ESTABLISHED BASED ON THE FOURTH UNIVERSAL DEFINITIONS OF MYOCARDIALINFARCTION. THE UPPER REFERENCE LIMIT (URL) OF TROPONIN, DEFINED THE 99TH PERCENTILE OFcTnI DISTRIBUTION IN A REFERENCE POPULATION, HAS BEEN CONFIRMED THE DECISION THRESHOLDFOR NC DIAGNOSIS. Performed By: #### B CELL INSTALLER, HSTROPN, CMP ####[facility] Mkvnxaeuat2[address] [place] [address]Dr. Ivette Hernandez VIT B12 AND FOLATEon Cobalamin (Vitamin B12) [Mass/Vol] 930.0 pg/mL Normal 193.0-986.0 [facility] Comment on above: Performed By: #### V ITAD, FETIBC, B12FOL ####[facility] [address]smzybuugc[address] [place] [address]Dr. Ivette Hernandez FOLATE 22.30 ng/mL Normal 8.60-58.90 [facility] Comment on above: Performed By: #### V ITAD, FETIBC, B12FOL ####[facility] Ulchcztydx[address] [place] [address]Dr. Ivette Hernandez VITAMIN D 25 OHon 02-24-2022 VIT D 25-OH 35.4 ng/mL Normal [facility] Comment on above: Performed By: #### V ITAD, FETIBC, B12FOL ####[facility] Wnpkkiwouv48[address] [place] [address]Dr. Ivette Hernandez VIT D RANGES SEE BELOW Normal [facility] Comment on above: Result Comment: <20 ng/mL Vit D deficient 20 - <30 ng/mL Vit D insufficient 30 - 100 ng/mL Vit D sufficient >100 ng/mL Potential Toxicity Performed By: #### V ITAD, FETIBC, B12FOL ####[facility] Tpgxqwgwfu3[address] [place] [address]Dr. Cherjun Hernandez XR CHEST 1 Von 02-24-2022 XR CHEST 1 V Normal [facility] CHEMISTRYOrdered By: SYSTEM SYSTEM on 02-06-2022 Creatinine [Mass/Vol] 1.5 mg/dL High 0.5 - 1.3 mg/d [place] [facility] Remisol GFR/1.73 sq M.predicted among blacks MDRD (S/P/Bld) [Vol rate/Area] 41 mL/min/1.73 m2 Low >=59mL/min/1.73 m2 [facility] Chem S GFR/1.73 sq M.predicted among non-blacks MDRD (S/P/Bld) [Vol rate/Area] 34 mL/min/1.73 m2 Low >=59mL/min/1.73 m2 [facility] Chem S Covid-19 PCR (CVDTBH)on 11-01 SARS-CoV-2 (COVID-19) RNA MARRY+probe Ql (Unsp spec) Detected Critically abnormal NOT DETECTED [facility] Comment on above: Result Comment: This test is not yet approved or cleared by the [place] FDA. When there are no FDA-approved or cleared tests available, and other criteria are met, FDA can make tests available under an emergency access mechanism called an Emergency Use Authorization (EUA). The EUA for this test is supported by the Security Orderly of Health and Human Service's (HHS's) declaration [...] longer be used). Performed By: #### C VDTB ####[facility] [address]ks[address]rihba[address] [place], [place] [address]Ej. Ivette [facility] Metabolic Pane marky 10-03-2021 Albumin [Mass/Vol] 3.3 g/dL Low 3.6-5.1 [facility] [employer] Comment on above: Performed By: #### C MP #### [facility] [address] [place], [place] [id number] Albumin/Globulin [Mass ratio] 1.5 {ratio} Normal 1.0-2.5 [facility] [employer] Comment on above: Performed By: #### C MP #### [facility] [address], [place] [id number] ALP [Catalytic activity/Vol] 56 U/L Normal 35-119 [facility] Comment on above: Performed By: #### C MP #### [facility] [address] [place], [place] [id number] ALT [Catalytic activity/Vol] 10 U/L Normal 6-33 [facility] Comment on above: Result Comment: 04/02 Female reference range changed. Performed By: #### C MP #### [facility] [address] [place], [place] [id number] Anion gap [Moles/Vol] 15 mmol/L Normal 12-20 [facility] Comment on above: Result Comment: Effe ctive 05/08/2019 reference range changed. Performed By: #### C MP #### [facility] [address] [place], [place] [id number] AST [Catalytic activity/Vol] 15 U/L Normal 9-34 [facility] Comment on above: Performed By: #### C MP #### [facility] [address] [place], [place] [id number] BUN/CREA 15 Ratio Normal 6-22 [facility] Comment on above: Performed By: #### C MP #### [facility] [address] [place], [place] [id number] Calcium [Mass/Vol] 6.2 mg/dL Low 8.6-10.2 [facility] Comment on above: Performed By: #### C MP #### [facility] [address] [facility] [id number] Chloride [Moles/Vol] 108 mmol/L High 98-107 [facility] Comment on above: Performed By: #### C MP #### [facility] [address] [facility] [id number] CO2 [Moles/Vol] 24 mmol/L Normal 20-31 [facility] Comment on above: Performed By: #### C MP #### [facility] [address] [place], [place] [id number] Creatinine [Mass/Vol] 1.9 mg/dL High 0.6-1.4 [facility] Comment on above: Performed By: #### C MP #### [facility] [address] [id number] eGFRAA 31 mL/min/1.73m2 Low >60 [facility] Comment on above: Performed By: #### C MP #### [facility] [address] [place], [place] [id number] eGFRNAA 26 mL/min/1.73m2 Low >60 [facility] Comment on above: Performed By: #### C MP #### [facility] [address] [id number] Globulin (S) [Mass/Vol] 2.2 g/dL Normal 1.9-3.7 [facility] Comment on above: Performed By: #### C MP #### [facility] [address] [place], [place] [id number] Glucose [Mass/Vol] 107 mg/dL High 65-99 [facility] Comment on above: Result Comment: For FASTING Glucose --- ADA reference ranges: Normal 65-99 mg/dl Prediabetes 100-125 Diabetes >/= 126 Performed By: #### C MP #### [facility] [address] [place], [place] [id number] Potassium [Moles/Vol] 4.3 mmol/L Normal 3.5-5.5 [facility] Comment on above: Performed By: #### C MP #### [facility] [address] [place] [id number] Protein [Mass/Vol] 5.5 g/dL Low 6.1-8.1 [facility] Specialist Comment on above: Performed By: #### C MP #### [facility] [address] [place] [id number] Sodium [Moles/Vol] 143 mmol/L Normal 135-146 [facility] [employer] Operator Comment on above: Performed By: #### C MP #### [facility] [address] [place] [id number] TBIL <0.3 Normal [facility] Comment on above: Performed By: #### C MP #### [facility] [address] [place], [place] [id number] Urea nitrogen [Mass/Vol] 29 mg/dL High 7-25 [facility] [employer] Operator Comment on above: Performed By: #### C MP #### [facility] [address] [place], [place] [id number] Q - B-TYPE NATRIURETIC (BNP) on 10-03-2021 Natriuretic peptide B (Bld) [Mass/Vol] 248 pg/mL High <100 [facility] [employer] Comment on above: Order Comment: [facility] performed at: QPT, [facility], [address], [address] [place], [address], Dietetics Professor: Chon Manzano MD [facility] Collection Date/Time: [id number] [facility] Results Received Date/Time: [facility] Reported Date/Time: Result Comment: BNP levels increase with age in the general population with the highest values seen in individuals greater than 75 years of age. Reference: J. Am. Dylan. Cardiol. 2002; 40:976-982. Performed By: #### 3 [id number] #### [facility] [address] [place] [address] Complete Blood Counton 09-11 Erythrocyte distribution width (RBC) [Ratio] 14.3 % Normal 11.0-15.0 [facility] Specialist Comment on above: Performed By: #### C MP, CBC #### [facility] [address] [place], [place] [id number] Hematocrit (Bld) [Volume fraction] 30.1 % Low 35.0-47.0 [facility] Specialist Comment on above: Performed By: #### C MP, CBC #### [facility] [address] [place], [place] [id number] Hemoglobin (Bld) [Mass/Vol] 9.1 g/dL Low 11.6-15.5 [facility] Specialist Comment on above: Performed By: #### C MP, CBC #### [facility] [address] [place], [place] [id number] MCH (RBC) [Entitic mass] 28.7 pg Normal 27.0-33.0 [place] [employer] Operator Comment on above: Performed By: #### C MP, CBC #### [facility] [address] [place], [place] [id number] MCHC (RBC) [Mass/Vol] 30.2 g/dL Low 32.0-36.0 [facility] Comment on above: Performed By: #### C MP, CBC #### [facility] [address] [place], [place] [id number] MCV (RBC) [Entitic vol] 95 fL Normal 80-100 [facility] Comment on above: Performed By: #### C MP, CBC #### [facility] [address] [place], [place] [id number] Platelet mean volume (Bld) [Entitic vol] 9.60 fL Normal 7.50-12.50 [facility] Comment on above: Performed By: #### C MP, CBC #### [facility] [address] [place], [place] [id number] Platelets (Bld) [#/Vol] 219 10*3/uL Normal 140-400 [facility] Comment on above: Performed By: #### C MP, CBC #### [facility] [address] [place], [place] [id number] RBC (Bld) [#/Vol] 3.17 10*6/uL Low 3.90-5.20 [facility] Comment on above: Performed By: #### C MP, CBC #### [facility] [address] [place], [place] [id number] RDW-SD 49.8 fL Normal 37.0-50.0 [facility] Comment on above: Performed By: #### C MP, CBC #### [facility] [address] [place], [place] [id number] WBC (Bld) [#/Vol] 11.0 10*3/uL Normal 3.8-11.0 [facility] Comment on above: Performed By: #### C MP, CBC #### [facility] [address] [place], [place] [id number] Comprehensive Metabolic Pane marky 09-11-2021 Albumin [Mass/Vol] 3.4 g/dL Low 3.6-5.1 [place] [employer] Comment on above: Performed By: #### C MP, CBC #### [facility] [address] [place], [place] [id number] Albumin/Globulin [Mass ratio] 1.5 {ratio} Normal 1.0-2.5 [facility] Specialist Comment on above: Performed By: #### C MP, CBC #### [facility] [address] [place], [place] [id number] ALP [Catalytic activity/Vol] 65 U/L Normal 35-119 [facility] Specialist Comment on above: Performed By: #### C MP, CBC #### [facility] [address] [place], [place] [id number] ALT [Catalytic activity/Vol] 52 U/L High 6-33 [facility] Specialist Comment on above: Result Comment: 04/02 Female reference range changed. Performed By: #### C MP, CBC #### [facility] [address] [place] [id number] Anion gap [Moles/Vol] 17 mmol/L Normal 12-20 [facility] Comment on above: Result Comment: Effe ctive 05/08/2019 reference range changed. Performed By: #### C MP, CBC #### [facility] [address] [place] [id number] AST [Catalytic activity/Vol] 26 U/L Normal 9-34 [facility] Specialist Comment on above: Performed By: #### C MP, CBC #### [facility] [address] [place] [id number] BUN/CREA 20 Ratio Normal 6-22 [facility] Specialist Comment on above: Performed By: #### C MP, CBC #### [facility] [address] [place], [place] [id number] Calcium [Mass/Vol] 7.1 mg/dL Low 8.6-10.2 [facility] [employer] Operator Comment on above: Performed By: #### C MP, CBC #### [facility] [address] [place] [id number] Chloride [Moles/Vol] 104 mmol/L Normal 98-107 [facility] Specialist Comment on above: Performed By: #### C MP, CBC #### [facility] [address] [place], [place] [id number] CO2 [Moles/Vol] 27 mmol/L Normal 20-31 [facility] Specialist Comment on above: Performed By: #### C MP, CBC #### [facility] [address] [place], [place] [id number] Creatinine [Mass/Vol] 1.6 mg/dL High 0.6-1.4 [facility] Specialist Comment on above: Performed By: #### C MP, CBC #### [facility] [address] [place], [place] [id number] eGFRAA 38 mL/min/1.73m2 Low >60 [facility] Specialist Comment on above: Performed By: #### C MP, CBC #### [facility] [address] [place], [place] [id number] eGFRNAA 31 mL/min/1.73m2 Low >60 [facility] Specialist Comment on above: Performed By: #### C MP, CBC #### [facility] [address] [place], [place] [id number] Globulin (S) [Mass/Vol] 2.3 g/dL Normal 1.9-3.7 [facility] Specialist Comment on above: Performed By: #### C MP, CBC #### [facility] [address] [place], [place] [id number] Glucose [Mass/Vol] 216 mg/dL High 65-99 [facility] [employer] Operator Comment on above: Result Comment: For FASTING Glucose --- ADA reference ranges: Normal 65-99 mg/dl Prediabetes 100-125 Diabetes >/= 126 Performed By: #### C MP, CBC #### [facility] [address] [place], [place] [id number] Potassium [Moles/Vol] 4.9 mmol/L Normal 3.5-5.5 [facility] Specialist Comment on above: Performed By: #### C MP, CBC #### [facility] [address] [place], [place] [id number] Protein [Mass/Vol] 5.7 g/dL Low 6.1-8.1 [facility] Specialist Comment on above: Performed By: #### C MP, CBC #### [facility] [address] [place], [place] [id number] Sodium [Moles/Vol] 143 mmol/L Normal 135-146 [facility] Comment on above: Performed By: #### C MP, CBC #### [facility] [address] [place], [place] [id number] TBIL <0.3 Normal [facility] Comment on above: Performed By: #### C MP, CBC #### [facility] [address] [place], [place] [id number] Urea nitrogen [Mass/Vol] 33 mg/dL High 7-25 [facility] Comment on above: Performed By: #### C MP, CBC #### [facility] [address] [place], [place] [id number] Q - B-TYPE NATRIURETIC (BNP) on 09-11-2021 Natriuretic peptide B (Bld) [Mass/Vol] 963 pg/mL High <100 [facility] Comment on above: Order Comment: [facility] performed at: QPT, [facility], [address] [place] [address], [address] [place], [address], Dietetics Professor: Chon Manzano MD [facility] Collection Date/Time: [id number] [facility] Results Received Date/Time: [id number] [facility] Reported Date/Time: Result Comment: BNP levels increase with age in the general population with the highest values seen in individuals greater than 75 years of age. Reference: J. Am. Dylan. Cardiol. 2002; 40:976-982. Performed By: #### 3 [id number] #### [facility] [address] [place] [address] Complete Blood Counton 06-26 Erythrocyte distribution width (RBC) [Ratio] 14.9 % Normal 11.0-15.0 [facility] Comment on above: Performed By: #### C BC, CMP #### [facility] [address] [place], [place] [id number] Hematocrit (Bld) [Volume fraction] 29.4 % Low 35.0-47.0 [facility] Comment on above: Performed By: #### C BC, CMP #### [facility] [address] [place], [place] [id number] Hemoglobin (Bld) [Mass/Vol] 9.3 g/dL Low 11.6-15.5 [facility] Comment on above: Performed By: #### C BC, CMP #### [facility] [address] [place], [place] [id number] MCH (RBC) [Entitic mass] 29.3 pg Normal 27.0-33.0 [facility] Comment on above: Performed By: #### C BC, CMP #### [facility] [address] [place], [place] [id number] MCHC (RBC) [Mass/Vol] 31.6 g/dL Low 32.0-36.0 [facility] Comment on above: Performed By: #### C BC, CMP #### [facility] [address] [place], [place] [id number] MCV (RBC) [Entitic vol] 93 fL Normal 80-100 [facility] Comment on above: Performed By: #### C BC, CMP #### [facility] [address] [place], [place] [id number] Platelet mean volume (Bld) [Entitic vol] 9.60 fL Normal 7.50-12.50 [facility] Comment on above: Performed By: #### C BC, CMP #### [facility] [address] [place], [place] [id number] Platelets (Bld) [#/Vol] 228 10*3/uL Normal 140-400 [facility] Comment on above: Performed By: #### C BC, CMP #### [facility] [address] [place], [place] [id number] RBC (Bld) [#/Vol] 3.17 10*6/uL Low 3.90-5.20 [facility] Comment on above: Performed By: #### C BC, CMP #### [facility] [address] [place], [place] [id number] RDW-SD 51.3 fL High 37.0-50.0 [facility] Comment on above: Performed By: #### C BC, CMP #### [facility] [address] [place] [id number] WBC (Bld) [#/Vol] 7.9 10*3/uL Normal 3.8-11.0 [facility] [employer] Operator Comment on above: Performed By: #### C BC, CMP #### [facility] [address] [place] [id number] Comprehensive Metabolic Pane marky 06-26-2021 Albumin [Mass/Vol] 4.0 g/dL Normal 3.6-5.1 [facility] [employer] Operator Comment on above: Performed By: #### C BC, CMP #### [facility] [address] [place] [id number] Albumin/Globulin [Mass ratio] 1.4 {ratio} Normal 1.0-2.5 [facility] Specialist Comment on above: Performed By: #### C BC, CMP #### [facility] [address] [place] [id number] ALP [Catalytic activity/Vol] 69 U/L Normal 35-119 [facility] Specialist Comment on above: Performed By: #### C BC, CMP #### [facility] [address] [place] [id number] ALT [Catalytic activity/Vol] 18 U/L Normal 6-33 [facility] Specialist Comment on above: Result Comment: 04/02 Female reference range changed. Performed By: #### C BC, CMP #### [facility] [address] [place] [id number] Anion gap [Moles/Vol] 23 mmol/L High 12-20 [facility] Comment on above: Result Comment: Effe ctive 05/08/2019 reference range changed. Performed By: #### C BC, CMP #### [facility] [address] [place] [id number] AST [Catalytic activity/Vol] 18 U/L Normal 9-34 [facility] Specialist Comment on above: Performed By: #### C BC, CMP #### [facility] [address] [place] [id number] BUN/CREA 21 Ratio Normal 6-22 [facility] Specialist Comment on above: Performed By: #### C BC, CMP #### [facility] [address] [place], [place] [id number] Calcium [Mass/Vol] 8.8 mg/dL Normal 8.6-10.2 [facility] [employer] Operator Comment on above: Performed By: #### C BC, CMP #### [facility] [address] [place], [place] [id number] Chloride [Moles/Vol] 106 mmol/L Normal 98-107 [facility] Comment on above: Performed By: #### C BC, CMP #### [facility] [address] [place], [place] [id number] CO2 [Moles/Vol] 18 mmol/L Low 20-31 [facility] Comment on above: Performed By: #### C BC, CMP #### [facility] [address] [place], [place] [id number] Creatinine [Mass/Vol] 2.1 mg/dL High 0.6-1.4 [facility] Comment on above: Performed By: #### C BC, CMP #### [facility] [address] [place], [place] [id number] eGFRAA 29 mL/min/1.73m2 Low >60 [facility] Specialist Comment on above: Performed By: #### C BC, CMP #### [facility] [address] [place], [place] [id number] eGFRNAA 24 mL/min/1.73m2 Low >60 [facility] Specialist Comment on above: Performed By: #### C BC, CMP #### [facility] [address] [place], [place] [id number] Globulin (S) [Mass/Vol] 2.8 g/dL Normal 1.9-3.7 [facility] Specialist Comment on above: Performed By: #### C BC, CMP #### [facility] [address] [place], [place] [id number] Glucose [Mass/Vol] 145 mg/dL High 65-99 [facility] [employer] Operator Comment on above: Result Comment: For FASTING Glucose --- ADA reference ranges: Normal 65-99 mg/dl Prediabetes 100-125 Diabetes >/= 126 Performed By: #### C BC, CMP #### [facility] [address] [place], [place] [id number] Potassium [Moles/Vol] 4.1 mmol/L Normal 3.5-5.[address] [facility] Comment on above: Performed By: #### C BC, CMP #### [facility] [address] [place], [place] [id number] Protein [Mass/Vol] 6.8 g/dL Normal 6.1-8.1 [facility] Specialist Comment on above: Performed By: #### C BC, CMP #### [facility] [address] [place], [place] [id number] Sodium [Moles/Vol] 142 mmol/L Normal 135-146 [facility] Specialist Comment on above: Performed By: #### C BC, CMP #### [facility] [address] [place], [place] [id number] TBIL <0.3 Normal [facility] Comment on above: Performed By: #### C BC, CMP #### [facility] [address] [place], [place] [id number] Urea nitrogen [Mass/Vol] 44 mg/dL High 7-25 [facility] Comment on above: Performed By: #### C BC, CMP #### [facility] [address] [place], [place] [id number] Complete Blood Counton 05-22 Erythrocyte distribution width (RBC) [Ratio] 14.4 % Normal 11.0-15.0 [facility] Comment on above: Performed By: #### C BC, CMP #### [facility] [address] [place], [place] [id number] Hematocrit (Bld) [Volume fraction] 31.3 % Low 35.0-47.0 [facility] Comment on above: Performed By: #### C BC, CMP #### [facility] [address] [place], [place] [id number] Hemoglobin (Bld) [Mass/Vol] 9.5 g/dL Low 11.6-15.5 [facility] Comment on above: Performed By: #### C BC, CMP #### [facility] [address] [place], [place] [id number] MCH (RBC) [Entitic mass] 28.7 pg Normal 27.0-33.0 [facility] Comment on above: Performed By: #### C BC, CMP #### [facility] [address] [place], [place] [id number] MCHC (RBC) [Mass/Vol] 30.4 g/dL Low 32.0-36.0 [facility] Comment on above: Performed By: #### C BC, CMP #### [facility] [address] [place], [place] [id number] MCV (RBC) [Entitic vol] 95 fL Normal 80-100 [facility] Specialist Comment on above: Performed By: #### C BC, CMP #### [facility] [address] [place], [place] [id number] Platelet mean volume (Bld) [Entitic vol] 9.90 fL Normal 7.50-12.50 [facility] Specialist Comment on above: Performed By: #### C BC, CMP #### [facility] [address] [place], [place] [id number] Platelets (Bld) [#/Vol] 275 10*3/uL Normal 140-400 [facility] Specialist Comment on above: Performed By: #### C BETTYE, CMP #### [facility] [address] [place], [place] [id number] RBC (Bld) [#/Vol] 3.31 10*6/uL Low 3.90-5.20 [facility] Comment on above: Performed By: #### C BC, CMP #### [facility] [address] [place], [place] [id number] RDW-SD 49.4 fL Normal 37.0-50.0 [facility] Specialist Comment on above: Performed By: #### C BC, CMP #### [facility] [address] [place], [place] [id number] WBC (Bld) [#/Vol] 11.2 10*3/uL High 3.8-11.0 [facility] Comment on above: Performed By: #### C BC, CMP #### [facility] [address] [place], [place] [id number] Comprehensive Metabolic Pane marky 05-22-2021 Albumin [Mass/Vol] 3.9 g/dL Normal 3.6-5.1 [place] [employer] Comment on above: Performed By: #### C BC, CMP #### [facility] [address] [place], [place] [id number] Albumin/Globulin [Mass ratio] 1.3 {ratio} Normal 1.0-2.5 [facility] [employer] Operator Comment on above: Performed By: #### C BC, CMP #### [facility] [address] [place], [place] [id number] ALP [Catalytic activity/Vol] 68 U/L Normal 35-119 [facility] [employer] Operator Comment on above: Performed By: #### C BC, CMP #### [facility] [address] [place], [place] [id number] ALT [Catalytic activity/Vol] 16 U/L Normal 6-33 [facility] [employer] Operator Comment on above: Result Comment: 04/02 Female reference range changed. Performed By: #### C BC, CMP #### [facility] [address] [place], [place] [id number] Anion gap [Moles/Vol] 21 mmol/L High 12-20 [facility] Specialist Comment on above: Result Comment: Effe ctive 05/08/2019 reference range changed. Performed By: #### C BC, CMP #### [facility] [address] [place], [place] [id number] AST [Catalytic activity/Vol] 20 U/L Normal 9-34 [facility] [employer] Operator Comment on above: Performed By: #### C BC, CMP #### [facility] [address] [place], [place] [id number] BUN/CREA 16 Ratio Normal 6-22 [facility] [employer] Operator Comment on above: Performed By: #### C BC, CMP #### [facility] [address] [place], [place] [id number] Calcium [Mass/Vol] 7.9 mg/dL Low 8.6-10.2 [place] [employer] Comment on above: Performed By: #### C BC, CMP #### [facility] [address] [place], [place] [id number] Chloride [Moles/Vol] 102 mmol/L Normal 98-107 [facility] Comment on above: Performed By: #### C BC, CMP #### [facility] [address] [place], [place] [id number] CO2 [Moles/Vol] 26 mmol/L Normal 20-31 [facility] Comment on above: Performed By: #### C BC, CMP #### [facility] [address] [place], [place] [id number] Creatinine [Mass/Vol] 2.0 mg/dL High 0.6-1.4 [facility] Comment on above: Performed By: #### C BC, CMP #### [facility] [address] [place], [place] [id number] eGFRAA 30 mL/min/1.73m2 Low >60 [facility] Specialist Comment on above: Performed By: #### C BC, CMP #### [facility] [address] [place], [place] [id number] eGFRNAA 25 mL/min/1.73m2 Low >60 [facility] Specialist Comment on above: Performed By: #### C BC, CMP #### [facility] [address] [place], [place] [id number] Globulin (S) [Mass/Vol] 3.1 g/dL Normal 1.9-3.7 [facility] Specialist Comment on above: Performed By: #### C BC, CMP #### [facility] [address] [place], [place] [id number] Glucose [Mass/Vol] 57 mg/dL Low 65-99 [facility] Comment on above: Result Comment: For FASTING Glucose --- ADA reference ranges: Normal 65-99 mg/dl Prediabetes 100-125 Diabetes >/= 126 Performed By: #### C BC, CMP #### [facility] [address] [place], [place] [id number] Potassium [Moles/Vol] 4.9 mmol/L Normal 3.5-5.5 [facility] Comment on above: Performed By: #### C BC, CMP #### [facility] [address] [place], [place] [id number] Protein [Mass/Vol] 7.0 g/dL Normal 6.1-8.1 [place] [employer] Comment on above: Performed By: #### C BC, CMP #### [facility] [address] [place], [place] [id number] Sodium [Moles/Vol] 144 mmol/L Normal 135-146 [place] [facility] [employer] Comment on above: Performed By: #### C BC, CMP #### [facility] [address] [place], [place] [id number] TBIL <0.3 Normal [facility] Specialist Comment on above: Performed By: #### C BC, CMP #### [facility] [address] [place], [place] [id number] Urea nitrogen [Mass/Vol] 31 mg/dL High 7-25 [facility] Specialist Comment on above: Performed By: #### C BC, CMP #### [facility] [address] [place], [place] [id number] Hemoglobin A1Con 05-22-2021 EAG 125.50 Normal [facility] Specialist Comment on above: Performed By: #### A 1C #### [facility] [address] [place], [place] [id number] HbA1c (Bld) [Mass fraction] 6.0 % Normal 4.0-6.0 [facility] Specialist Comment on above: Performed By: #### A 1C #### [facility] [address] [place], [place] [id number] BASIC METABOLIC PANELon 08-02 Calcium 9.6 mg/dL Normal 8.6-10.3 [facility] Comment on above: Performed By: #### 0 0071 ####[facility] [facility] [place] [address], [place] Chloride 100 mmol/L Normal 98-107 [facility] Comment on above: Performed By: #### 0 0071 ####[facility] [place] [address], [place] CO2 28 mmol/L Normal 21-31 [facility] Comment on above: Performed By: #### 0 0071 ####[facility] [facility] [place] [place] [address], [facility] Creatinine 1.15 mg/dL Normal 0.60-1.20 [facility] Comment on above: Performed By: #### 0 0071 ####[facility] [place] [address], [facility] eGFR (black) 57 ml/min/1.73sq m Abnormal >60 [facility] Comment on above: Performed By: #### 0 0071 ####[facility] [facility] [place] [place] [address], [facility] eGFR (non-black) 47 ml/min/1.73sq m Abnormal >60 [facility] Comment on above: Performed By: #### 0 0071 ####[place] [id number] [facility].[address] Glucose mass conc 163 mg/dL High 70-100 [facility] Comment on above: Performed By: #### 0 0071 ####[place] [address] [facility].[address] Potassium molar conc 4.1 mmol/L Normal 3.5-5.1 [facility] Comment on above: Performed By: #### 0 0071 ####[place] [address] [facility].[address] Sodium 135 mmol/L Low 136-145 [facility] Comment on above: Performed By: #### 0 0071 ####[facility] [facility].[address] Urea nitrogen 17 mg/dL Normal 7-25 [facility] Comment on above: Performed By: #### 0 0071 ####[facility] [facility] [place] [address], [facility] CBC W/DIFFon 08-24-2017 ABS BASOPHILS 0.1 10*3/uL Normal 0.0-0.2 [facility] Comment on above: Performed By: #### 5 0103 ####[facility] ABS IMM GRANS 0.1 10*3/uL Normal 0.0-0.2 [facility] Comment on above: Performed By: #### 5 0103 ####[facility] Basophils Auto #/vol (Bld) 0.5 % Normal 0.0-1.0 [facility] Comment on above: Performed By: #### 5 0103 ####[facility] Eosinophils 0.4 10*3/uL Normal 0.0-0.5 [facility] Comment on above: Performed By: #### 5 0103 ####[facility] Eosinophils/100 leukocytes 3.5 % Normal 0.0-6.0 [facility] Comment on above: Performed By: #### 5 0103 ####[facility] Erythrocyte distribution width Auto Ratio (RBC) 14.2 % Normal 11.5-15.0 [facility] Comment on above: Performed By: #### 5 0103 ####[facility] Erythrocytes (RBC) 0 % Normal 0-0 [facility] Comment on above: Performed By: #### 5 3 ####[facility] Erythrocytes (RBC) 4.12 10*6/uL Normal 3.80-5.00 [facility] Comment on above: Performed By: #### 5 3 ####[facility] Hematocrit (HCT) 37.1 % Normal 36.0-45.0 [facility] Comment on above: Performed By: #### 5 0103 ####[facility] [facility].[address] Hemoglobin mass conc (Bld) 12.3 g/dL Normal 12.0-15.0 [facility] Comment on above: Performed By: #### 5 0103 ####[facility].[address] IMMATURE GRANS 0.4 % Normal 0.0-1.0 [facility] Comment on above: Performed By: #### 5 0103 ####[facility] Lymphocytes 5.1 10*3/uL High 1.2-4.0 [facility] Comment on above: Performed By: #### 5 0103 ####[facility].[address] Lymphocytes/100 leukocytes 40.5 % Normal 20.0-45.0 [facility] Comment on above: Performed By: #### 5 0103 ####[facility].[address] MCH 29.9 pg Normal 27.0-33.0 [facility] Comment on above: Performed By: #### 5 0103 ####[facility].[address] MCHC mass conc (RBC) 33.2 g/dL Normal 32.0-35.0 [facility] Comment on above: Performed By: #### 5 3 ####[facility].[address] MCV 90.0 fL Normal 82.0-98.0 [facility] Comment on above: Performed By: #### 5 0103 ####[facility] [address] Monocytes 0.9 10*3/uL Normal 0.1-1.0 [facility] Comment on above: Performed By: #### 5 0103 ####[address] MONOS 7.5 % Normal 5.0-12.0 [facility] Comment on above: Performed By: #### 5 0103 ####[address] Neutrophils 6.0 10*3/uL Normal 1.6-7.6 [facility] Comment on above: Performed By: #### 5 0103 ####[address] Neutrophils/100 leukocytes 47.6 % Normal 40.0-72.0 [facility] Comment on above: Performed By: #### 5 0103 ####[address] PLAT CNT 239 10*3/uL Normal 150-400 [facility] Comment on above: Performed By: #### 5 0103 ####[address] WBC (Leukocytes) 12.5 10*3/uL High 4.0-10.6 [facility] Comment on above: Performed By: #### 5 0103 ####[address] ABDOMEN AND PELVIS WO CON TRASTon 08-24-2017 CT ABDOMEN AND PELVIS WO [facility]AST [facility] [address] [place] [address] ========Patient Name: MARTIN HAGEN : 1950Sex: FAge: Race: WhiteMRN: [id number]. Location: 85Patient Status: DVisit #: [id number] Date: 08/24/2017 2:00:00 PMCompleted Date: 08/24/2017 04:18 PMRequesting Provider: KASANDRA BROWN Attending Provider: KASANDRA BROWN Report Copy To: SHAWN BARBER Signs & Symptoms: K43.2 Incisional hernia without obstruction or gangrene [id number]: AthenaComments: , , oral contrast only , , , Ordering Provider - KASANDRA BROWN MD , Rendering Provider - KASANDRA BROWN MD , Exam: CT ABDOMEN AND PELVIS WO CONTRASTAccession #: [id number] CT ABDOMEN AND PELVIS WO CONTRAST 08/24/2017 [...] is recommended for further evaluation. Approved by:Luis beckwith 08/24/2017 5:15 PM EDT. I, Colin Clemente, have reviewed the images and report and concur with these findings. Electronically signed by:Colin Clemente. Transcribed by: [email or web address], User Resident: LUIS BARRAGANElectronically Signed by: COLIN CLEMENTE @ 08/25/2017 10:20 PMI personally read this/these film(s) with this resident Normal [facility] Comment on above: Order Comment: , , o ral contrast only , , , Ordering Provider - KASANDRA BROWN MD , Rendering Provider - KASANDRA BROWN MD , HEMOGLOBIN A1Con 08-24-2017 Glucose mass conc 146 mg/dL High 70-126 [facility] Comment on above: Performed By: #### 4 6447 ####[facility] [address] Hemoglobin A1c/Hemoglobin.total mass fraction (Bld) 6.7 % High 4.0-6.0 [facility] Comment on above: Performed By: #### 4 6447 ####[facility] [address] PROTHROMBIN TIMEon 8 INR Coag RelTime (PPP) 1.10 {INR} Normal 0.91-1.16 [facility] Comment on above: Result Comment: ACCC P RECOMMENDED INR FOR WARFARIN THERAPY CONDITION INRPROPHYLAXIS OF VENOUS THROMBOSIS 2-3(HIGH-RISK SURGERY)TREATMENT OF VENOUS THROMBOSIS 2-3TREATMENT OF PULMONARY EMBOLISM 2-3PREVENTION OF SYSTEMIC EMBOLISM: 2-3 ACUTE MYOCARDIAL INFARCTION TISSUE HEART VALVES VALVULAR HEART DISEASE ATRIAL FIBRILLATION RECURRENT SYSTEMIC EMBOLISMMECHANICAL HEART VALVE 2.5-3.5 FROM: ORAL ANTICOAGULANTS. MECHANISM OF ACTION, CLINICALEFFECTIVENESS, AND OPTIMAL THERAPEUTIC RANGE. [id number]. Performed By: #### 5 6101 ####[facility] [address] Prothrombin time (PT) Coag time (PPP) 14.3 s Normal 12.3-14.8 [facility] Comment on above: Result Comment: ALL RESULTS MUST BE INTERPRETED WITH RESPECT TO BLOOD DRAWING ARTIFACTOR DILUTION ERROR OF ANTICOAGULANT AT THE TIME OF SAMPLING. Performed By: #### 5 6101 ####[facility].[address] Vital Signs Date Time Vital Sign Value Performing Clinician Facility 04-29-2023 14:24-0500 Body height 152.[address] 04-29-2023 14:24-0500 Body mass index (BMI) [Ratio] 31.25 kg/m2 [address] 04-29-2023 14:24-0500 Body weight 72.[address] 04-29-2023 14:24-0500 Diastolic blood pressure 64 mm[Hg] [address] 04-29-2023 14:24-0500 Systolic blood pressure 122 mm[Hg] [address] 04-28-2023 09:43-0500 Body temperature 96.98 [degF] Jacqui Michael [facility] 04-28-2023 09:43-0500 Diastolic blood pressure 86 mm[Hg] Jacqui Michael [facility] 04-28-2023 09:43-0500 Heart rate 74 /min Jacqui Lue [facility] 04-28-2023 09:43-0500 Systolic blood pressure 124 mm[Hg] Jacqui Lue [facility] 03-30-2023 13:55-0500 Body height 152.4 cm Annika Kaba MID LEVEL BUSINESS ANALYST-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 Work Phone: [facility] 03-30-2023 13:55-0500 Body mass index (BMI) [Ratio] 31.25 kg/m2 Annika Kaba MID LEVEL BUSINESS ANALYST-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 Work Phone: [facility] 03-30-2023 13:55-0500 Body weight 72.58 kg Annika Kaba MID LEVEL BUSINESS ANALYST-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MER Work Phone: [facility] 03-30-2023 13:55-0500 Diastolic blood pressure 60 mm[Hg] Annika Kaba MID LEVEL BUSINESS ANALYST-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 Work Phone: [facility] 03-30-2023 13:55-0500 Heart rate 70 /min Annika Kaba [employer] LEVEL BUSINESS ANALYST-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 Work Phone: [facility] 03-30-2023 13:55-0500 Systolic blood pressure 128 mm[Hg] Annika Kaba [employer] LEVEL BUSINESS ANALYST-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 Work Phone: [facility] 02-03-2023 09:07-0400 Blood Pressure Location Jacqui Lue [facility] 02-03-2023 09:07-0400 Diastolic blood pressure 74 mm[Hg] Jacqui Lue [facility] 02-03-2023 09:07-0400 Heart rate 68 /min Jacqui Lue [facility] 02-03-2023 09:07-0400 Respiratory rate 16 /min Jacqui Lue [facility] 02-03-2023 09:07-0400 Systolic blood pressure 120 mm[Hg] Jacqui Michael [facility] 12-29-2022 14:17-0400 Blood Pressure Location INES DANN [facility] 12-29-2022 14:17-0400 Diastolic blood pressure 70 mm[Hg] INES DANN [facility] 12-29-2022 14:17-0400 Heart rate 70 /min INES DANN [facility] 12-29-2022 14:17-0400 Respiratory rate 16 /min INES DANN [facility] 12-29-2022 14:17-0400 Systolic blood pressure 132 mm[Hg] INES DANN [facility] 12-28-2022 14:33-0400 Body height 152.4 cm Shawn Barber Work Phone: [facility] 250 DO Work Phone: 12-28-2022 14:33-0400 Body mass index (BMI) [Ratio] 29.49 kg/m2 Shawn Barber Work Phone: [facility] 250 DO Work Phone: 12-28-2022 14:33-0400 Body surface area Derived from formula 1.66 m2 Shawn Barber Work Phone: [facility] 250 DO Work Phone: 12-28-2022 14:33-0400 Body weight 68.49 kg Shawn Barber Work Phone: [facility] 250 DO Work Phone: 12-28-2022 14:33-0400 Diastolic blood pressure 44 mm[Hg] Shawncris Barber Work Phone: [facility] 250 DO Work Phone: 12-28-2022 14:33-0400 Heart rate 76 /min Shawncris Barber Work Phone: [facility] 250 DO Work Phone: 12-28-2022 14:33-0400 Systolic blood pressure 80 mm[Hg] Shawn Michel Barber Work Phone: [facility] 250 DO Work Phone: 12-28-2022 14:33-0400 11 1 Shawn Barber Work Phone: [facility] 250 DO Work Phone: Comment on above: PHQ-9 TS 11-21-2022 16:00-0400 Inhaled oxygen flow rate 4 L/min II Shawn Barber Work Phone: [facility] 11-21-2022 15:53-0400 Heart rate 65 /min II Shawn Barber Work Phone: [facility] 11-21-2022 15:53-0400 Respiratory rate 20 /min II Shawn Barber Work Phone: [facility] 11-21-2022 12:00-0400 Diastolic blood pressure 79 mm[Hg] II Shawn Barber Work Phone: [facility] 11-21-2022 12:00-0400 SaO2% (BldA) [Mass fraction] 93 % II Shawn Barber Work Phone: [facility] 11-21-2022 12:00-0400 Systolic blood pressure 149 mm[Hg] II Shawn Barber Work Phone: [facility] 11-21-2022 08:30-0400 Body temperature 97.9 [degF] II Shawn Barber Work Phone: [facility] 11-21-2022 06:00-0400 Body weight 74 kg II Shawn Barber Work Phone: [facility] 11-19-2022 09:40-0400 Body height 152.4 cm II Shawn Barber Work Phone: [facility] 11-18-2022 19:23-0400 Diastolic blood pressure 88 mm[Hg] II Shawn Barber Work Phone: [facility] 11-18-2022 19:23-0400 Heart rate 82 /min II Shawn Barber Work Phone: [facility] 11-18-2022 19:23-0400 Inhaled oxygen flow rate 3 L/min II Shawn Barber Work Phone: [facility] 11-18-2022 19:23-0400 Respiratory rate 18 /min II Shawn Barber Work Phone: [facility] 11-18-2022 19:23-0400 SaO2% (BldA) [Mass fraction] 96 % II Shawn Barber Work Phone: [facility] 11-18-2022 19:23-0400 Systolic blood pressure 194 mm[Hg] II Shawn Barber Work Phone: [facility] 11-18-2022 16:13-0400 Body height 152.4 cm II Shawn Barber Work Phone: [facility] 11-18-2022 16:13-0400 Body temperature 98.3 [degF] II Shawn Barber Work Phone: [facility] 11-18-2022 16:13-0400 Body weight 75.29 kg II Shawn Barber Work Phone: [facility] 08-27-2022 16:00-0400 Body height 152.4 cm Ziggy Guerra Other [place] [employer] Other 08-27-2022 16:00-0400 Body mass index (BMI) [Ratio] 34.8 kg/m2 Ziggy Dianne Other [employer] Other 08-27-2022 16:00-0400 Body temperature 97.5 [degF] Ziggy Dianne Other [employer] Other 08-27-2022 16:00-0400 Body weight 80.83 kg Ziggy Dianne Other [employer] Other 08-27-2022 16:00-0400 Diastolic blood pressure 70 mm[Hg] Ziggy Dianne Other [employer] Other 08-27-2022 16:00-0400 Respiratory rate 18 /min Ziggy Dianne Other [employer] Other 08-27-2022 16:00-0400 SaO2% (BldA) [Mass fraction] 91 % Ziggy Dianne Other [employer] Other 08-27-2022 16:00-0400 Systolic blood pressure 124 mm[Hg] Ziggy Dianne Other [employer] Other 07-29-2022 09:08-0400 Blood Pressure Location Jacqui Lue [facility] 07-29-2022 09:08-0400 Diastolic blood pressure 89 mm[Hg] Jacqui Lue [facility] 07-29-2022 09:08-0400 Heart rate 66 /min Jacqui Lue [facility] 07-29-2022 09:08-0400 Systolic blood pressure 131 mm[Hg] Jacqui Lue [facility] 06-10-2022 10:24-0500 Blood Pressure Location Jacqui Lue [facility] 06-10-2022 10:24-0500 Diastolic blood pressure 80 mm[Hg] Jacqui Lue [facility] 06-10-2022 10:24-0500 Heart rate 77 /min Jacqui Lue [facility] 06-10-2022 10:24-0500 Systolic blood pressure 130 mm[Hg] Jacqui Lue [facility] 02-16-2022 13:05-0400 Blood Pressure Location Montero SALAM [facility] 02-16-2022 13:05-0400 Diastolic blood pressure 76 mm[Hg] Montero SALAM [facility] 02-16-2022 13:05-0400 Heart rate 68 /min Montero SALAM [facility] 02-16-2022 13:05-0400 Respiratory rate 30 /min Montero SALAM [facility] 02-16-2022 13:05-0400 SaO2% (BldA) [Mass fraction] 98 % Montero SALAM [facility] 02-16-2022 13:05-0400 Systolic blood pressure 142 mm[Hg] Montero SALAM [facility] 02-16-2022 13:00-0400 Respiratory rate 25 /min Montero SALAM [facility] 02-16-2022 13:00-0400 Systolic blood pressure 127 mm[Hg] Montero SALAM [facility] 02-16-2022 12:55-0400 Blood Pressure Location Montero SALAM [facility] 02-16-2022 12:55-0400 Diastolic blood pressure 71 mm[Hg] Montero SALAM [facility] 02-16-2022 12:55-0400 Heart rate 70 /min Montero SALAM [facility] 02-16-2022 12:55-0400 Respiratory rate 27 /min Montero SALAM [facility] 02-16-2022 12:55-0400 SaO2% (BldA) [Mass fraction] 97 % Montero SALAM [facility] 02-16-2022 12:55-0400 Systolic blood pressure 119 mm[Hg] Montero SALAM [facility] 02-16-2022 12:42-0400 Body temperature 96.98 [degF] Montero SALAM [facility] 02-16-2022 10:46-0400 Body temperature 96.8 [degF] Montero SALAM [facility] 12-31-2021 14:58-0400 Diastolic blood pressure 80 mm[Hg] Lani Lisy [facility] 12-31-2021 14:58-0400 Mean blood pressure 100 mm[Hg] Alni Lisy [facility] 12-31-2021 14:58-0400 Systolic blood pressure 140 mm[Hg] Lani Lisy [facility] 12-31-2021 14:54-0400 Blood Pressure Location Lani Lisy [facility] 12-31-2021 14:54-0400 Body temperature 97.7 [degF] Lani Lisy [facility] 12-31-2021 14:54-0400 Diastolic blood pressure 77 mm[Hg] Lani Wasserman [facility] 12-31-2021 14:54-0400 Heart rate 69 /min Lani Wasserman [facility] 12-31-2021 14:54-0400 Systolic blood pressure 144 mm[Hg] Lani Wasserman [facility] 12-13-2021 11:05-0400 Body weight 79.56 kg Smiley Davila Other [employer] [facility] [employer] Other 12-13-2021 11:05-0400 Diastolic blood pressure 70 mm[Hg] Smiley Davila Other [employer] [facility] [employer] Other 12-13-2021 11:05-0400 Respiratory rate 18 /min Smiley Davila Other [employer] Other 12-13-2021 11:05-0400 SaO2% (BldA) [Mass fraction] 94 % Smiley Davila Other [employer] Other 12-13-2021 11:05-0400 Systolic blood pressure 129 mm[Hg] Smiley Davila Other [employer] Other Encounters Encounter Date Encounter Type Care Provider Facility Start: 05-14-2023 ambulatory Lani Bakeri ty:[facility] Start: 05-07-2023 End: 05-08-2023 ambulatory [facility] Start: 04-29-2023 End: 04-29-2023 Subsequent hospital visit by physician Doreen Garcia Echo/Vasc Room 2 [facility] Comment on above: Nonrheumatic aortic valve stenosis; Pulmonary hypertension (CMS/HCC) Start: 04-28-2023 End: 04-29-2023 ambulatory Jacqui Michael Facility:[facility] Start: 04-28-2023 End: 04-28-2023 Patient encounter procedure Jacqui Michael [facility] Start: 04-20-2023 End: 04-20-2023 ambulatory [facility] Start: 04-20-2023 ambulatory Jacqui Michael Facility:[facility] Start: 04-05-2023 End: 04-05-2023 ambulatory SHAWN BARBER Not Available Start: 03-30-2023 End: 03-30-2023 Office outpatient visit 25 minutes Annika Kaba APRN-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MER Work Phone: [facility] Comment on above: Paroxysmal atrial fi brillation (CMS/HCC) (Primary Dx); Anticoagulated; Nonrheumatic aortic valve stenosis; Abnormal echocardiogram; Pulmonary hypertension (CMS/HCC); Stage 3a chronic kidney disease (CMS/HCC); Current smoker; Diabetes mellitus type II, non insulin dependent (CMS/HCC); BMI 31.0-31.9,adult; Mixed hyperlipidemia; Essential hypertension Start: 02-22-2023 End: 02-23-2023 ambulatory Jacqui Michael Facility[facility] Start: 02-22-2023 End: 02-22-2023 Patient encounter procedure Jacqui Michael [facility] Start: 02-03-2023 End: 02-04-2023 ambulatory Jacqui Michael Facility:[facility] Start: 02-03-2023 End: 02-04-2023 ambulatory [facility] Start: 02-03-2023 End: 02-03-2023 Patient encounter procedure Jacqui Michael [facility] Start: 12-29-2022 End: 12-30-2022 ambulatory PA-C INES WELCH [facility] Start: 12-29-2022 End: 12-29-2022 Patient encounter procedure INES WELCH [facility] [place] Start: 12-28-2022 Patient encounter procedure Shawn Barber Work Phone: [facility] 250 DO Work Phone: Start: 12-28-2022 ambulatory Annika Kaba Facility:1 [id number] Start: 11-21-2022 ambulatory Annika Kaba Facility:9 090 Start: 11-20-2022 ambulatory Annika Kaba Facility:9 090 Start: 11-19-2022 ambulatory Annika Kaba Facility:9 090 Start: 11-18-2022 ambulatory Annika Kaba Facility:9 090 Start: 11-18-2022 End: 11-21-2022 Evaluation and management of inpatient Hilary Mischler Facility:[facility] Start: 11-18-2022 End: 11-21-2022 Evaluation and management of inpatient MARTHA Barber Work Phone: [facility] [place] [facility] Work Phone: Start: 10-27-2022 End: 10-27-2022 ambulatory PHILL SIMPSON [facility] Start: 09-22-2022 End: 09-22-2022 ambulatory SILVA MAXWELL [facility] Start: 09-11-[address] SHAWN BARBER Facilit y:[facility] Start: 09-06-2022 End: 09-08-2022 Evaluation and management of inpatient DR LALI RIVERA . Facility: Start: 08-27-2022 End: 08-27-2022 ambulatory Ziggy Dianne Other [employer] Other Start: 08-27-2022 Office outpatient ne w 45 minutes Ziggy Dianne [facility] Start: 07-29-2022 End: 07-30-2022 ambulatory Jacqui Michael Facility:[facility] Start: 07-29-2022 End: 07-29-2022 Patient encounter procedure [facility] Start: 07-22-[address] SHAWN BARBER Facilit y:[facility] Start: 07-08-2022 End: 07-09-2022 ambulatory ZOHRA WELCH Facility:[facility] Start: 07-08-2022 End: 07-08-2022 Patient encounter procedure INES WELCH [facility] Start: 07-07-2022 End: 07-07-[address] SILVA MAXWELL Facility:[facility] Start: 07-06-2022 End: 07-06-2022 ambulatory SILVA MAXWELL [facility] Start: 06-15-2022 End: 06-16-2022 ambulatory INES WELCH Facility:[facility] Start: 06-14-2022 End: 06-15-2022 ambulatory INES WELCH Facility:[facility] Start: 06-10-2022 End: 06-11-2022 ambulatory Jacqui Michael Facility:[facility] Start: 06-10-2022 End: 06-10-2022 Lab Drop off Jacqui Michael [facility] Start: 06-10-2022 End: 06-11-2022 ambulatory Jacqui Michael Facility:[facility] [place] Start: 06-10-2022 End: 06-10-2022 Patient encounter procedure Jacqui Michael [facility] Start: 05-05-2022 End: 05-06-[address] ANITA KEYS Facility:[facility] Start: 04-16-2022 End: 04-16-2022 ambulatory [facility] Facility:[facility] Start: 04-15-2022 End: 04-28-[address] JOSE SON . Facility:[facility] Start: 04-13-2022 End: 04-13-2022 ambulatory [facility] Start: 04-10-2022 End: 04-13-2022 Evaluation and management [...] End: 02-16-2022 Patient encounter procedure Kylah BELL [facility] Start: 02-06-2022 End: 02-06-2022 Patient encounter procedure Lani Wasserman [facility] Start: 12-31-2021 End: 05-07-2022 Recurring Kylah BELL [facility] Start: 12-31-2021 End: 12-31-2021 Patient encounter procedure Lani Wasserman [facility] Start: 12-13-2021 End: 12-13-2021 ambulatory Smiley Davila Other [place] [employer] Other Start: 12-13-2021 Office outpatient ne w 20 minutes Smiley Davila [facility] Start: 11-28-2021 End: 11-28-2021 ambulatory JOHN VÍCTOR Facility:[facility] Start: 10-07-2021 End: 10-08-[address] MAHAMED RM Facility:[facility] Start: 09-23-2021 End: 09-24-[address] MAHAMED RM Facility:[facility] Start: 08-24-2017 End: 08-25-2017 Ambulatory KASANDRA BROWN Facility:[facility] Procedures Date Procedure Procedure Detail Performing Clinician Start: 04-29-2023 Echo tthrc r-t 2d w/ wom-mode compl spec&colr d Annika Kaba [employer]EV[employer] BUSINESS ANALYST-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 Work Phone: Start: 04-13-2023 Mammography Doreen 2 Start: 02-22-2023 Transurethral cystoscopy Jacqui Michael Start: 11-21-2022 Plain chest X-ray II Da noni Barber Work Phone: Start: 11-18-2022 Plain chest X-ray II Da noni Barber Work Phone: Start: 09-22-2022 Follow-up visit Follow-up [facility] Start: 09-07-2022 Transfusion of Nonau tologous Red Blood Cells into Peripheral Vein, Percutaneous Approach DR MAHAMED RM Start: 02-16-2022 Colonoscopy Colonoscopy Kylah Perez Start: 12-02-2020 Cystoscopy Jacqui Lue Start: 05-30-2020 Mammography Annika lyle [employer] ANALYST-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 Work Phone: Start: 05-03-2020 Colonoscopic polypectomy Shawn [...] 02-17-2032 Screening for malignant neoplasm of colon [facility] Start: 04-29-[address] [facility] Start: 04-13-2024 Screening for malignant neoplasm of breast Mammogram [facility] Start: 11-19-[address] [facility] Start: 05-12-2023 End: 05-12-2023 Patient encounter procedure 05/12/2023 2:30 PM EST Office Visit [facility] [address] [facility] [address] [place] [id number] Annika Kaba, MID LEVEL BUSINESS ANALYST-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 [address] [place] [address] [facility] Start: 04-29-2023 End: 04-29-2023 Patient encounter procedure 04/29/2023 2:30 PM EST Appointment [place] [id number] [facility] [address] [place] [phone] [facility] Start: 03-30-2023 End: 03-30-2024 Basic metabolic 2000 panel - Serum or Plasma Basic Metabolic Panel Lab Routine Paroxysmal atrial fibrillation (CMS/HCC) Expected: 03/30/2023 (Approximate), Expires: 03/30/2024 [facility] Service Area Work Phone: Comment on above: Expected: 03/30/2023 (Approximate), Expi res: 03/30/2024 Start: 03-30-2023 End: 03-30-2024 CBC panel - Blood by Automated count CBC Lab Routine Paroxysmal atrial fibrillation (CMS/HCC) Anticoagulated Expected: 03/30/2023 (Approximate), Expires: 03/30/[address] [facility] Work Phone: Comment on above: Expected: 03/30/2023 (Approximate), Expi res: 03/30/2024 Start: 03-30-2023 End: 03-30-2025 Heart Transthoracic Transthoracic Echo (TTE) Complete Echocardiography Routine Nonrheumatic aortic valve stenosis Pulmonary hypertension (CMS/HCC) Expected: 03/30/2023 (Approximate), Expires: 03/30/[address] [facility] Work Phone: Comment on above: Expected: 03/30/2023 (Approximate), Expi res: 03/30/2025 Start: 11-23-2022 Blood chemistry [facility] Start: 11-23-2022 [facility] Start: 11-22-2022 Blood chemistry [facility] Start: 11-22-2022 [facility] Start: 11-21-2022 Blood chemistry [facility] Start: 11-21-2022 End: 11-21-2022 [facility] Start: 11-20-2022 Blood chemistry [facility] Start: 11-20-2022 [facility] Start: 11-19-2022 Referral to lap checker [facility] Start: 11-19-2022 Blood chemistry [facility] Start: 11-19-2022 End: 11-19-2022 [facility] Start: 11-18-2022 Hospital admission [facility] Start: 11-18-2022 [facility] Start: 05-30-2021 Screening for malignant neoplasm of breast Mammogram [facility] Start: 10-04-2020 Screening for osteoporosis Bone Density Scan [facility] Start: 04-02-2016 Zoster Vaccines (2 of 3) Zoster Vaccines (2 of 3) [facility] Start: 2008 Hepatitis B Vaccines (1 of 3 - Risk 3-dose series) Hepatitis B Vaccines (1 of 3 - Risk 3-dose series) [facility] Start: 1970 DTaP/Tdap/Td Vaccines (1 - Tdap) DTaP/Tdap/Td Vaccines (1 - Tdap) [facility] Start: 12-08-1967 Hepatitis A Vaccines (1 of 2 - Risk 2-dose series) Hepatitis A Vaccines (1 of 2 - Risk 2-dose series) [facility] Start: 12-08-1967 Urine screening for protein Diabetes: Urine Protein Screening [facility] Start: 1966 Hepatitis C screening Hepatitis C Screening [facility] Start: 1958 Diabetic foot examination Diabetes: Foot Exam [facility] Start: 1958 Glaucoma screening Diabetes: Retinopathy Screening [facility] Start: 06-09-1949 COVID-19 Vaccine (#1) COVID-19 Vaccine (#1) [facility] Start: 1948 Creatinine measurement Creatinine Level [facility] Start: 1948 Hemoglobin A1c measurement Diabetes: Hemoglobin A1C [facility] Start: 1948 Lipid panel Lipid Panel [facility] Start: 1948 Medicare Annual Wellness Visit Medicare Annual Wellness Visit (AWV) [facility] Start: 1948 Potassium measurement Potassium Level [facility] Start: 1948 Screening for malignant neoplasm of colon [facility] Patient referral [facility] Work Phone: End: 04-29-2023 [facility] Work Phone: Comment on above: Once for 1 Occurrences starting 04/29/20 23 until 04/29/2023 Immunizations Immunization Date Immunization Notes Care Provider Rajan [facility] 03-01-2023 influenza virus vaccine, unspecified formulation Jacqui Michael [facility] 02-05-2022 influenza virus vaccine, unspecified formulation Jacqui Michael [facility] 01-31-2022 influenza virus vaccine, unspecified formulation Jacqui Michael [facility] 01-31-2022 influenza, high dose seasonal, preservative-free Shawn B Barber Work Phone: [facility] 250 DO Work Phone: 03-05-2021 influenza virus vaccine, unspecified formulation Jacqui Lue [facility] 03-05-2021 influenza, high dose seasonal, preservative-free [facility] B [facility] Work Phone: 03-22-2020 influenza virus vaccine, unspecified formulation Jacqui Lue [facility] 03-15-2020 influenza virus vaccine, unspecified formulation Jacqui Lue [facility] 03-15-2020 influenza, high dose seasonal, preservative-free Shawn B Barber Work Phone: [facility] 250 DO Work Phone: 02-09-2019 influenza virus vaccine, unspecified formulation Jacqui Lue [facility] 02-09-2019 influenza, high dose seasonal, preservative-free Shawn B Barber Work Phone: [facility] 250 DO Work Phone: 02-17-2018 influenza virus vaccine, unspecified formulation Jacqui Lue [facility] 02-17-2018 influenza, high dose seasonal, preservative-free Shawn B Barber [facility] DO Work Phone: 01-25-2017 influenza virus vaccine, unspecified formulation Jacqui Lue [facility] 01-25-2017 influenza, high dose seasonal, preservative-free Shawn Michel Barber Work Phone: [facility] 250 DO Work Phone: 02-19-2016 influenza virus vaccine, unspecified formulation Jacqui Michael [facility] 02-19-2016 influenza, injectabl e, quadrivalent, contains preservative Shawn Michel Barber Work Phone: [facility] 250 DO Work Phone: 02-06-2016 zoster vaccine, live Jacqui L ue [facility] 02-03-2016 pneumococcal polysaccharide vaccine, 23 valent Jacqui Lue [facility] 04-12-2015 pneumococcal conjuga te vaccine, 13 valent Jacqui Lue [facility] NEGATED: Highlighted row has not occurred!12-31-2021 influenza virus vaccine, unspecified formulation Lani Wasserman [facility] Payers Date Payer Category Payer Medicaid MEDICAID MEDICAI D [id number] 2021-Present [address] [place] [address] [id number] 2014 Unknown [id number] 2011 Medicare MEDICARE MEDICAR E PART A AND B [id number] 2011-Present [address] [place] [address] [id number] 1959 Medicaid [id number] 2.16.840.1.730868.19 1959 Medicare [id number] 2.16.840.1.129834.19 1959 Self-pay 1959 Unknown [id number] 2.16.8 40.1.029099.19 1948 Unknown [id number] 2.16.840.1.442966.3.579.2.593 1948 Unknown [id number] 2.16.840.1.231414.3.579.2.593 1948 Unknown [id number] 2.16.840.1.895791.3.579.2.593 1948 Unknown [id number] 2.16.840.1.726278.3.579.2.593 1948 Unknown [id number] 2.16.840.1.615231.3.579.2.593 1948 Unknown [id number] 2.16.840.1.563570.3.579.2.593 1948 Unknown [id number] 2.16.840.1.245007.3.579.2.593 1948 Unknown [id number] 2.16.840.1.713717.3.579.2.593 1948 Unknown [id number] 2.16.840.1.266276.3.579.2.593 1948 Unknown [id number] 2.16.840.1.016158.3.579.2.593 1948 Unknown [id number] 2.16.840.1.436588.3.579.2.593 1948 Unknown [id number] 2.16.840.1.671488.3.579.2.593 1948 Unknown [id number] 2.16.840.1.215988.3.579.2.593 1948 Unknown [id number] 2.16.840.1.690359.3.579.2.593 1948 Unknown [id number] 2.16.840.1.688393.3.579.2.593 1948 Unknown [id number] 2.16.840.1.000545.3.579.2.593 1948 Unknown [id number] 2.16.840.1.597237.3.579.2.593 1948 Unknown [id number] 2.16.840.1.187941.3.579.2.593 1948 Unknown [id number] 2.16840.1.947000.3.579.2.356 1948 Unknown [id number] 2.840.1.337999.3.579.2.356 1948 Unknown [id number] 2.840.1.337249.3.579.2.356 1948 Unknown [id number] 2.840.1.429540.3.579.2.356 1948 Unknown [id number] 2.840.1.576679.3.579.2.356 1948 Unknown [id number] 2.840.1.380563.3.579.2.1259 1948 Unknown [id number] 2.840.1.558356.3.579.2.727 1948 Unknown [id number] 2.840.1.443207.3.579.2.727 1948 Unknown [id number] 2.16840.1.203369.3.579.2.727 1948 Unknown [id number] 2.16840.1.420003.3.579.2.727 1948 Unknown [id number] 2.16840.1.957958.3.579.2.727 1948 Unknown [id number] 2.16.840.1.689196.3.579.2.727 1948 Unknown [id number] 2.16.840.1.075961.3.579.2.727 1948 Unknown [id number] 2.16.840.1.883920.3.579.2.727 1948 Unknown [id number] 2.16.840.1.321054.3.579.2.727 1948 Unknown [id number] 2.16.840.1.750134.3.579.2.727 1948 Unknown [id number] 2.16.840.1.786204.3.579.2.727 1948 Unknown [id number] 2.16.840.1.662289.3.579.2.1286 1948 Unknown [id number] 2.16.840.1.862093.3.579.2.1286 Medicare [id number] Unknown [id number] 2.16.840.1.175558.3.579.2.531 Unknown Unknown [id number] Social History Date Type Detail Facility Start: 12-28-2022 End: 03-30-2023 Sex Assigned At [facility] Other Start: 12-31-2021 Tobacco smoking status Light t obacco smoker (finding) [facility] Tobacco smoking status Never Kameron [facility] Start: 11-18-2022 End: 11-19-2022 Tobacco smoking status NHIS Smoker (finding) [facility] Start: 1950 Sex Assigned At Female [facility] Start: 12-28-2022 End: 03-30-2023 Caffeine use Caffeine use [facility] Comment on above: 2 cups coffee daily most of the time; 1/2 ppd; Start: 12-29-2022 End: 04-28-2023 Tobacco smoking status Heavy tobacco smoker (finding) [facility] Start: 03-30-2023 Tobacco smoking stat us NHIS Smokes tobacco daily [facility] History of tobacco use [facility] Start: 03-30-2023 Tobacco use and exposure Smokeless tobacco non-user [facility] Work Phone: Start: 03-30-2023 Alcohol intake Lifetime non-d jeffy (finding) [facility] Work Phone: Start: 03-30-2023 Gender identity Identifies as female gender (finding) [facility] Work Phone: Start: 03-30-2023 Sexual orientation Heterosexual (fin ding) [facility] Work Phone: Start: 03-20-2023 End: 04-29-2023 Exposure to SARS-CoV-2 (event) Not sure [facility] Goals Date Patient Goal Desired Activity /State Functional Status Date Assessment Result Facility 04-28-2023 Functional Status N/A [facility] 02-12-2023 Functional Status N/A [facility] 02-03-2023 Functional Status N/A [facility] 12-29-2022 Functional Status N/A [facility] 11-21-2022 Functional status Patient at Baseline [facility] Work Phone: 07-29-2022 Functional Status N/A [facility] 06-10-2022 Functional Status N/A [facility] 02-16-2022 Functional Status N/A [facility] 12-31-2021 Functional Status N/A [facility] Mental Status Date Assessment Result Facility 11-21-2022 Cognitive function Cognitive Sta tus Patient at Baseline [facility] Work Phone: Clinical Notes 04-02-2021 to 04-28-2023 Assessment & Plan Note - Annika Johnny NATALIE Kaba - 04/03/2023 12:04 PM ESTAssessment & Plan Note - Annika K NATALIE Kaba - 04/03/2023 12:04 PM ESTPatient Instructions Note Date & Type Note Facility 04-28-2023 Hospital Discharg e instructions Patient Education 04/28/2023 10:24:50 Urinary Tract Infection, Adult, Mdbm-zz-Dqbl Urinary Tract Infection, Adult A urinary tract [...] Follow these instructions at home: Medicines Take btwk-bqq-fhxpdyf and prescription medicines only as told by [...] provider. Document Revised: 11/29/2020 Document Reviewed: 11/29/2020 [employer] Patient Education 2022 [employer] Follow Up Care 02/22/2023 10:37:46 With:Alec XIE, CARLY [place], [place] Address: When:Within 3 Month(s) [facility] 04-03-2023 Evaluation + Plan note Associated Problem(s): Current smoker Continued every day tobacco use. Have reviewed the negative cardiovascular impact of nicotine. Continues to decline pharmacological assistance. [facility] Work Phone: 04-03-2023 Evaluation + Plan note Associated Problem(s): Stage 3 chronic kidney disease (CMS/HCC) Report establish follow-up with Dr. Guerra Last creatinine in our system was 4.[address] [facility] Work Phone: 04-03-2023 Miscellaneous Notes Associated [...] size were reportedly normal Associated Problem(s): A-fib ([facility]) Daughter believes this was diagnosed during one of the hospitalizations prior to being under the care of of an NO. Regular rate and rhythm on exam Associated Problem(s): Aortic stenosis October 2022 TTE Aortic Stenosis p46;m26 documented in this encounter [facility] Work Phone: 04-03-2023 Evaluation + Plan note Associated Problem(s): Diabetes mellitus type II, non insulin dependent ([facility]) Maintained on statin No LONI/ARB due to CKD [facility] Work Phone: 04-03-2023 Evaluation + Plan note Associated Problem(s): Anticoagulated CHADS VASc 4 chronically anticoagulated full dose Eliquis age 72, weight [address] [facility] Work Phone: 04-03-2023 Evaluation + Plan note Associated Problem(s): Essential hypertension Optimal in office [facility] Work Phone: 04-03-2023 Evaluation + Plan note Associated Problem(s): Hyperlipidemia Low intensity statin [facility] Work Phone: 04-03-2023 Evaluation + Plan note Associated Problem(s): Abnormal echocardiogram October 2022 TTE LVEF 60 to 65% LA moderate/severe Aortic stenosis peak 46, mean 26 RVSP 84 mmHg (denies prior PE, longstanding tobacco abuse, chronic hypoxia and COPD) RV function and size were reportedly normal [facility] Work Phone: 04-03-2023 Evaluation + Plan note Associated Problem(s): A-fib (CMS/HCC) Daughter believes this was diagnosed during one of the hospitalizations prior to being under the care of of an [facility]. Regular rate and rhythm on exam [facility] Work Phone: 04-03-2023 Evaluation + Plan note Associated Problem(s): Aortic stenosis October 2022 TTE Aortic Stenosis p46;m26 [facility] Work Phone: 03-30-2023 History of Presen t [...] December visit I requested cardiology records from [place] [facility] and those were not obtained. She [...] incidence of candidiasis. Do not swallow. HYDROcodone-acetaminophen ([place]) 5-325 mg tablet 1 tablet, oral levETIRAcetam [...] October 2022 TTE Aortic Stenosis p46;m26 A-fib ([facility]) Daughter believes this was diagnosed during one of the hospitalizations prior to being under the care of of an [facility]. Regular rate and rhythm on exam Abnormal [...] Diabetes mellitus type II, non insulin dependent ([facility]) Maintained on statin No LONI/ARB due to CKD Stage 3 chronic kidney disease ([facility]) Report establish follow-up with Dr. Guerra Last [...] contact the office if new symptoms arise. 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 Voice recognition software was utilized to prepare this document. documented in this encounter [facility] Work Phone: 11-28-2023 Instructions NATALIE Gonsalez - 03/30/2023 2:00 PM [...] contact the office if new symptoms arise. 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 Work Phone: 02-22-2023 Note [id number] [facility] 02-22-2023 Note Cystoscopy ? Voiding after [...] you have a fever over 100 degrees. [facility] 02-22-2023 Hospital Discharg e instructions Patient [...] Up Care 02/03/2023 10:05:26 With:Jacqui Michael Address: [address] [place] [address] [phone] Business (1) [address], [address] [address] [phone] Business (1) When: Unknown Comments:Office to schedule follow up in 1 to 2 months [facility] 02-03-2023 Hospital Discharg e instructions Patient Education 02/03/2023 10:01:15 Urinary Tract Infection, Adult, Zfzb-jh-Geat Urinary Tract Infection, Adult A urinary tract [...] Follow these instructions at home: Medicines Take djqe-ipg-uhacrrt and prescription medicines only as told by [...] provider. Document Revised: 11/29/2020 Document Reviewed: 11/29/2020 Elsevier Patient Education 2022 [employer]. Follow Up Care 07/29/2022 09:55:50 With:Alec XIE, Jacqui Nieves [place], U[place] Address: When: Unknown Comments:Sched cysto [facility] 12-29-2022 Hospital Discharg e instructions Patient [...] Treatment for this condition includes: Antibiotic medicine. Daxt-wsq-opmottp medicines to treat discomfort. Drinking enough water [...] Follow these instructions at home: Medicines Take jecg-efe-vioktlr and prescription medicines only as told by [...] provider. Document Revised: 11/29/2020 Document Reviewed: 11/29/2020 [employer] Patient Education 2022 [employer] Follow Up Care 12/23/2022 14:08:39 With:Alec XIE, CARLY [place], URO Address: When: Unknown [facility] 11-21-2022 Progress note Note Date/Time November 21, 2022 11:31am [facility] [address] [place] [address] Cardiology Progress Note Signed Patient: Martin Hagen MR#: [id number] : 1950 Acct:[id number] Age/Sex: 71 / F Adm Date: 3 Loc: Room: [address] [place] [address] Type: ADM IN Attending Dr: Gina Poole [...] % (Auto) 70.8 Lymph % (Auto) 18.9 Wake % (Auto) 7.3 Eos % (Auto) 2.7 Baso % (Auto) 0.3 Nucleat RBC Rel Count 0.1 Neut # (Auto) 4.1 Lymph # (Auto) 1.1 Wake # (Auto) 0.4 Eos # (Auto) 0.2 Baso # (Auto) 0.0 PHA Creatinine Clear Sodium Potassium Chloride Carbon Dioxide Anion Gap BUN Creatinine Est GFR (CKD-EPI) Glucose POC Glucose 123 135 Calcium 11/21/22 11/21/22 04:47 08:37 Corrected WBC Uncorrected WBC Count RBC Hgb Hct MCV MCH MCHC RDW Plt Count MPV Neut % (Auto) Lymph % (Auto) Wake % (Auto) Eos % (Auto) Baso % (Auto) Nucleat RBC Rel Count Neut # (Auto) Lymph # (Auto) Wake # (Auto) Eos # (Auto) Baso # [...] aggressive diuresis Documented By: Colin Carrillo MD, [facility] 3 1127 Signed By: <Electronically signed by [facility] Colin Carrillo> 11/21/22 1131 [facility] Work Phone: 1(949) 356-749807-21-2023 Progress note Author Gina Poole [facility] November 20, 2022 2:12pm Note Date/Time November 20, 2022 2:12 pm [facility] [address] [place] [address] Hospitalist Progress Note Signed Patient: Martin Hagen MR#: [id number] : 1950 Acct:[id number] Age/Sex: 71 / F Adm Date: 3 Loc: Room: 8G9320-7 Type: ADM IN Attending Dr: Gina Poole [...] Ml Insuln.Pen SUBCUT 11/19/23 11:59 Not Given TID.WM.[facility] Protocol Magnesium Oxide 400 mg 11/19/22 09:00 [...] <Electronically signed by Gina Poole DO> 11/20/[address] [place] [address] Work Phone: 1(889) 838-755207-21-2023 Progress note Author Rey Arriaga [facility] November 20, 2022 10:30am Note Date/Time November 20, 2022 10:3 0am [facility] [address] [place] [address] Cardiology Progress Note Signed Patient: Martin Hagen MR#: [id number] : 1950 Acct:[id number] Age/Sex: 71 / F Adm Date: 3 Loc: Room: [address] [place] [address] Type: ADM IN Attending Dr: Gina Poole DO Copies to: ~ Date of Service: 11/20/2022 Subjective Principal diagnosis: Acute diastolic CHF Interval history: Patient notes some clinical improvement. Still some shortness of breath, though, ambulating from bed to bathroom. We discussed going home and she statesrai does not feel well enough to go [...] MPV Neut % (Auto) Lymph % (Auto) Wake % (Auto) Eos % (Auto) Baso % (Auto) Nucleat RBC Rel Count Neut # (Auto) Lymph # (Auto) Wake # (Auto) Eos # (Auto) Baso # [...] % (Auto) 68.4 Lymph % (Auto) 22.4 Wake % (Auto) 6.7 Eos % (Auto) 2.1 Baso % (Auto) 0.4 Nucleat RBC Rel Count 0.1 Neut # (Auto) 3.7 Lymph # (Auto) 1.2 Wake # (Auto) 0.4 Eos # (Auto) 0.1 [...] MPV Neut % (Auto) Lymph % (Auto) Wake % (Auto) Eos % (Auto) Baso % (Auto) Nucleat RBC Rel Count Neut # (Auto) Lymph # (Auto) Wake # (Auto) Eos # (Auto) Baso # [...] signed by MD Rey Arriaga> 11/20/22 10[address] [facility] Work Phone: 1(403) 742-779407-20-2023 Consult note Author Rey Arriaga [facility] November 19, 2022 2:59pm Note Date/Time November 19, 2022 2:59 pm [facility] [address] [place] [address] Cardiology Consult Note Signed Patient: Martin Hagen MR#: [id number] : 1950 Acct:[id number] Age/Sex: 71 / F Adm Date: 3 Loc: Room: [address] [place] [address] Type: ADM IN Attending Dr: Gina Poole [...] Lymph # (Auto) 1.5 1.6 (1.00-4.8) x10E3/uL Wake # (Auto) 0.4 0.4 (0.0-0.8) x10E3/uL Eos [...] <Electronically signed by MD Rey Arriaga> 11/19/22 [facility] Work Phone: 1(564) 462-986407-20-2023 Progress note Author Gina Poole [facility] November 19, 2022 11:54am Note Date/Time November 19, 2022 11:5 4am [facility] [address] [place] [address] Hospitalist Progress Note Signed Patient: Martin Hagen MR#: [id number] : 1950 Acct:[id number] Age/Sex: 71 / F Adm Date: 3 Loc: Room: [address] [place] [address] Type: ADM IN Attending Dr: Gina Poole [...] Units/3 Ml Insuln.Pen SUBCUT 11/19/23 11:59 TID.WM.[facility] Protocol Magnesium Oxide 400 mg 11/19/22 09:00 [...] <Electronically signed by Gina Poole DO> 11/19/22 115[address] [facility] Work Phone: 1(124) 268-467607-20-2023 History and physical note Author Gina Poole [facility] November 18, 2022 10:13pm Note Date/Time November 18, 2022 10:1 1pm [facility] [address] [place] [address] Hospitalist H&P Signed Patient: Martin Hagen MR#: [id number] : 1950 Acct:[id number] Age/Sex: 71 / F Adm Date: 3 Loc: Room: [address] [place] [address] Type: ADM IN Attending Dr: Gina Poole [...] negative unless noted below or in HPI [facility]?: No Medical History (Updated [...] % (Auto) 22.5 % (.) 11/18/22 17:51 Wake % (Auto) 5.7 % (.) 11/18/22 17:51 Eos % (Auto) 1.7 % (.) 11/18/22 17:51 Baso % (Auto) 0.7 % (.) 11/18/22 17:51 Nucleat RBC Rel Count 0.0 /100 WBC (0-0.5) 11/18/22 17:51 Neut # (Auto) 4.7 x10E3/uL (1.8-7.7) 11/18/22 17:51 Lymph # (Auto) 1.5 x10E3/uL (1.00-4.8) 11/18/22 17:51 Wake # (Auto) 0.4 x10E3/uL (0.0-0.8) 11/18/22 17:51 [...] <Electronically signed by Gina Poole DO> 11/18/22 [address] [facility] Work Phone: 1(271) 568-654406-27-2023 NoteHypertension is well controlled 108/62 Continue all meds Renal function stable for her- will continue to monitor and pt states she is to start F[facility]rologyUn[facility]06-27-2023 NoteNYHC- III- currently fluid overloaded and weight gain of 15 pounds in 2 weeks Continue GDMT- farxiga Diuretic therapy-increase bumex to 2mg in am and 1 mg in pm, repeat BMP next week Monitor daily weights, I&O, fluid restriction 1.5-2L/day, renal function and electrolytes- RTC 1month for re-evalautionUnMetroHealth Main Campus [facility] Center06-27-2023 Note Repeat limited echo to assess RV function, RVSP- rt sided pressures, and noted D shaped septum on inpt echo.[facility]06-27-2023 Note NCC2ns4-[id number]= 4 continue metoprolol for rate control, and eliquis anticoagulationUnMetroHealth Main Campus Medical Center06-27-2023 NotePatient here for follow up [facility] for [...] weakness. All other systems reviewed and are negative.[facility] 10-27-2022 NoteUTP CARDIOLOGY PROGRESS NOTE HPI: Martin Hagen is a 71 y.o. female here for No chief complaint on file. Patient here for follow up [facility] for CHF. She was seen as inpatient consult by Dr. Sterling on 10/12. Has some chest pressure s/p hospital stay. Review of SNF chart and pt's weight is increased 16 pounds over the last 2 weeks, she admits increased heaviness and breathing congestion. Currently she takes bumex 2 mg daily, renal function was CR 1.5 at [facility]- no aldactone was initiated. She denied chest pain, leg swelling, fever, chills. She recently was inpt at [facility] for resp failure, exacerbation of HFpEF, and [...] Tachycardia - sinus Hypertension Paroxysmal atrial fibrillation; [id number] - 4 (age, female, HTN, HF) - [...] reviewed CV Testin10/09/22 Echo (more content not included)...[facility]05-23-2023 Note [facility] Cardiology Clinic Note Chief Complaint: patient is [...] Eliquis. HPI: Martin was originally seen by [facility]iology during her admission to [facility] at the beginning of March,. She was [...] 04/13/2022 Today she was just discharged from [facility] where she was admitted for UTI. She [...] a past medical history of Atrial fibrillation (CMS/HCC) and CHF (congestive heart failure) (CMS/HCC). Surgical History She has no past surgical [...] pressures. Event monitor: Sinus (more content not included)...[facility]04-27-2023 Evaluation note* Encounter Date Diagnosis Assessment [...] We will check PTH and vitamin D. [employer] Other 03-29-2023 Hospital Discharge instructions Patient Education [...] 04/19/2006 Document Revised: 01/06/2019 Document Reviewed: 03/19/2017 [employer] Patient Education [employer]. Follow Up Care 06/10/2022 11:44:43 With:Alec XIE, CARLY [place], [place] Address: When:Within 6 Month(s) [facility] 03-06-2023 [facility] Clinic Note Chief Complaint: Patient here for 3 mo follow up CHF and afib. She was started on spironolactone at last apt in Apr 2022 by Linette Sanchez CNP. Had labs a few days after that. Denies chest pain and palpitations. Denies lightheadedness and bleeding on Eliquis. HPI: Martin was originally seen by [place] Cardiology during her admission to [facility] at the beginning of March,. She was [...] 04/13/2022 Today she was just discharged from [facility] where she was admitted for UTI. She [...] fraction (HFrEF) Tachycardia Hypertension Paroxysmal atrial fibrillation; [id number] - 4 (age, female, HTN, HF) - she requires long-term anticoagulation for stroke prophylaxis. She denies bleeding issues. Continue Eliquis 5mg BID. Nonrheumatic aortic valve stenosis; moderate on echocardiogram 08/2021 Benign hypertensive kidney disease with chronic kidney disease stage I through stage IV Plan: The patient's daughter tells me that her mother's heart rate is typical (more content not included)...[facility]23 Hospital Discharge instructions Patient Education 06/10/2022 [...] Follow these instructions at home: Medicines Take skue-yyl-dftneqk and prescription medicines only as told by [...] or the blood stops without treatment. Take fpnu-mrg-almqvne and prescription medicines only as told by your health care provider. Drink enough fluid to keep your urine clear or pale yellow. This information is not intended to replace advice given to you by your health care provider. Make sure you discuss any questions you have with your health care provider. Document Released: 04/19/2006 Document Revised: 09/13/2019 Document Reviewed: 05/22/2017 [employer] Patient Education 2020 [employer]. Follow Up Care 05/06/2022 14:07:41 With:Alec XIE, CARLY [place], URO Address: When: Unknown [facility] 12-12-2022 NotePatient here for follow up [facility] for CHF. She was seen as inpatient consult on 03/06/2022 by Madi Sanchez CNP. She was just discharged from [facility] again today for UTI and pneumonia. She will be having iron infusions set up soon for anemia. Denies chest pain and bleeding on Eliquis. Review of Systems Cardiovascular: Positive for dyspnea on exertion. Respiratory: Positive for shortness of breath. Musculoskeletal: Positive for muscle weakness. Neurological: Positive for seizures (hx of). All other systems reviewed and are negative.[facility] 04-13-2022 [facility]Cardiovascular Medicine [facility] SUBJECTIVE Chief Complaint Patient presents with Congestive Heart Failure Atrial Fibrillation Martin Hagen is a 71 y.o. female here for follow-up. MARIBEL Love was originally seen by [place] Cardiology during her admission to [facility] at the beginning of March,. She was [...] 04/13/2022 Today she was just discharged from [facility] where she was admitted for UTI. She [...] is warm and dry. (more content not included)...[facility] Hospital Discharge instructions Patient Education 02/16/2022 [...] drinks. ?Tomatoes and foods made with tomatoes. ?Alcolu or spicy foods. ?Chocolate and peppermint. Do not drink alcohol. General instructions Take gyqh-pqn-njanhoi and prescription medicines only as told by [...] unsweetened, w/added ascorbic acid 1 cup 0.5 [place] 1 cup 0.7 Vegetables Cooked Green beans 1 cup 4.0 Carrots 1/2 cup sliced 2.3 Peas 1 cup 8.8 Potato (baked, with skin) 1 medium potato 3.8 Raw [place] (with peel) 1 cucumber 1.5 Lettuce 1 [...] 8.7 Peanuts 1/2 cup 7.9 Chart from [facility] 02/16/2022 13:00:15 Colonoscopy, Care After Surgery [place] (Custom) Colonoscopy Care After Surgery Please read the instructions outlined below and refer to this sheet in the next few weeks. These discharge instructions provide you with general information on caring for yourself after you leave thespital. Your doctor may also give you specific [...] Up Care 12/31/2021 15:48:46 With:Kylah BELL Address: [address] [place] [address] Business (1) When: Unknown Comments:Call for any problems.Office will call to schedule follow up appointment (appointment for 1-2 weeksfrom today) [facility]10-17-2022 Evaluation + Plan noteExtracted from: Title:Anesthesia post op endo Author:Shawn Huddleston MD Date:02/16/22 Plan Transfer/ Discharge: Patient can be discharged from PACU when criteria met. Condition good. Extracted from: Title:Anesthesia Pre-Op endo Author:Mine Huddleston MD Date:02/16/22 Plan [place] [employer] Anesthesiologists (ASA) physical status classification: [...] Diff 12/31/21 * Comprehensive Metabolic Panel 12/31/21 [facility]08-31-2022 Hospital Discharge instructions Patient Education 12/31/2021 [...] drinks. ?Tomatoes and foods made with tomatoes. ?Alcolu or spicy foods. ?Chocolate and peppermint. Do not drink alcohol. General instructions Take trkz-lew-dalfrut and prescription medicines only as told by [...] 07/09/2004 Document Revised: 08/15/2018 Document Reviewed: 08/15/2018 Peerlyst Patient Education 2020 [employer] Follow Up Care 11/24/2021 14:47:03 With:Lani Wasserman CNP Address: When:[address] [facility] 08-13-2022 Evaluation note* Encounter [...] understanding and is agreeable with treatment plan [facility] Other 12-01-2021 History general Narrative - Reported* Type Description Date Medical History Macular degeneration bilateral e yes Medical History Continuous oxygen 2L/NC Medical History CHF- Does not follow with Cardio logy, managed by PCP Dr. Lora Medical History COPD Medical History Hx of COVID 04/2021 [facility] Other 12-01-2021 History general Narrative - Reported* [...] History HYSTERECTOMY 1994 Hospitalization History SEE ABOVE [facility] Other Consult note Author Rey Arriaga [facility] November 19, 2022 2:59pm Note Date/Time November 19, 2022 2:59 pm [facility] [address] [place], [place] [id number] Cardiology Consult Note Signed Patient: Martin Hagen MR#: [id number] : 1950 Acct:[id number] Age/Sex: 71 / F Adm Date: 3 Loc: Room: [address] [place] [address] Type: ADM IN Attending Dr: Gina Poole [...] Lymph # (Auto) 1.5 1.6 (1.00-4.8) x10E3/uL Wake # (Auto) 0.4 0.4 (0.0-0.8) x10E3/uL Eos [...] failure treatment. Documented By: Rey Arriaga MD [id number] Signed By: <Electronically signed by MD Rey Arriaga> 11/19/22 1459 [facility] Work Phone: Discharge summary Author Gina Poole [facility] November 21, 2022 3:38pm Note Date/Time November 21, 2022 3:39 pm [facility] [address] [place] [address] Discharge Summary Signed Patient: Martin Hagen MR#: [id number] : 1950 Acct:[id number] Age/Sex: 71 / F Adm Date: 3 Loc: Room: [address] [place] [address]: Gina Poole DO Copies to: [...] % (Auto) 70.8, Lymph % (Auto) 18.9, Wake % (Auto) 7.3, Eos % (Auto) 2.7, Baso % (Auto) 0.3, Nucleat RBC Rel Count 0.1, Neut # (Auto) 4.1, Lymph # (Auto) 1.1, Wake # (Auto) 0.4, Eos # (Auto) 0.2, [...] signs - Medication management and education - [facility] on 11/26 - result to Primary Care Provider - Prescriptions: New metolazone 2.5 mg Tablet 2.5 mg PO DAILY@30 30 Days Qty: 30 12RF Continued fluoxetine [...] 33 Signed By: <Electronically signed by Gina Poole, > 11/21/22 1538 [facility] Work Phone: Evaluation + Plan note Future Appointments Appointment Date:02/06/2022 01:00:00 PM Scheduled Provider: Location:[facility] Surgical Services Appointment Type:Surgery PAT COVID Testing Appointment Date:02/16/2022 10:30:00 AM Scheduled Provider: Location:[facility] Surgical [facility] Appointment Type:Surgery FT Appointment Date:02/16/2022 12:30:00 PM Scheduled Provider: Location:[facility] Surgical [facility] Appointment Type:Surgery FT Future Scheduled Tests Laboratory* Fecal WBC Lactoferrin 12/31/21 * Giardia lamblia, Direct Detection EIA 12/31/21 * O & P Exam, Routine 12/31/21 * Clostridium difficile by PCR 12/31/21 * Enteric Panel by PCR 12/31/21 * CBC w/ Auto Diff 12/31/21 * Comprehensive Metabolic Panel 12/31/21 Radiology* CT Abdomen/Pelvis w/ Contrast 12/31/21 [facility] Evaluation + Plan note Future Appointments Appointment Date:02/16/2022 10:30:00 AM Scheduled Provider: Location:[facility] Surgical [facility] Appointment Type:Surgery FT Appointment Date:02/16/2022 12:30:00 PM Scheduled Provider: Location:[facility] Surgical [facility] Appointment Type:Surgery FT Future Scheduled Tests Laboratory* Fecal WBC Lactoferrin 12/31/21 * Giardia lamblia, Direct Detection EIA 12/31/21 * O & P Exam, Routine 12/31/21 * Clostridium difficile by PCR 12/31/21 * Enteric Panel by PCR 12/31/21 * CBC w/ Auto Diff 12/31/21 * Comprehensive Metabolic Panel 12/31/21 [facility] App[facility]ments Appointment Date:06/10/2022 09:30:00 AM Scheduled Provider:Jacqui Michael MD Location:[facility] Appointment Type:URO Office Visit Future Scheduled Tests Laboratory* Fecal WBC Lactoferrin 12/31/21 * Giardia lamblia, Direct Detection EIA 12/31/21 * O & P Exam, Routine 12/31/21 * Clostridium difficile by PCR 12/31/21 * Enteric Panel by PCR 12/31/21 * CBC w/ Auto Diff 12/31/21 * Comprehensive Metabolic Panel 12/31/21 [facility] App[facility]ments Appointment Date:06/24/2022 08:30:00 AM Scheduled Provider: Location:[facility] Appointment Type:URO Nurse Visit Appointment Date:07/29/2022 09:00:00 AM Scheduled Provider:Jacqui Michael MD Location:[facility] Appointment Type:URO Office Visit Diagnostic Tests [...] Comprehensive Metabolic Panel 12/31/21 [facility] evaluation + Plan note Future Appointments Appointment Date:06/24/2022 08:30:00 AM Scheduled Provider: Location:[facility] Appointment Type:URO Nurse Visit Appointment Date:07/29/2022 09:00:00 AM Scheduled Provider:Jacqui Michael MD Location:[facility] Appointment Type:URO Office Visit Diagnostic Tests Pending * Urine Culture 06/10/22 Future Scheduled Tests Laboratory* Fecal WBC Lactoferrin 12/31/21 * Giardia lamblia, Direct Detection EIA 12/31/21 * O & P Exam, Routine 12/31/21 * Clostridium difficile by PCR 12/31/21 * Enteric Panel by PCR 12/31/21 * CBC w/ Auto Diff 12/31/21 * Comprehensive Metabolic Panel 12/31/21 [facility] App[facility]ments Appointment Date:07/29/2022 09:00:00 AM Scheduled Provider:Jacqui Michael MD Location:[facility] Appointment Type:URO Office Visit Future Scheduled Tests Laboratory* Fecal WBC Lactoferrin 12/31/21 * Giardia lamblia, Direct Detection EIA 12/31/21 * O & P Exam, Routine 12/31/21 * Clostridium difficile by PCR 12/31/21 * Enteric Panel by PCR 12/31/21 * CBC w/ Auto Diff 12/31/21 * Comprehensive Metabolic Panel 12/31/21 [facility] evaluation + Plan note Future Appointments Appointment Date:02/03/2023 09:00:00 AM Scheduled Provider:Jacqui Michael MD Location:[facility] Appointment Type:URO Office Visit Future Scheduled Tests Laboratory* Fecal WBC Lactoferrin 12/31/21 * Giardia lamblia, Direct Detection EIA 12/31/21 * O & P Exam, Routine 12/31/21 * Clostridium difficile by PCR 12/31/21 * Enteric Panel by PCR 12/31/21 * CBC w/ Auto Diff 12/31/21 * Comprehensive Metabolic Panel 12/31/21 [facility] evaluation + Plan note Future Appointments Appointment Date:02/08/2023 09:45:00 AM Scheduled Provider: Location:[facility] Surgical Services Appointment Type:Urology CALL PAT FT Appointment Date:02/22/2023 10:45:00 AM Scheduled Provider: Location:[facility] Services Appointment Type:Urology FT [facility] evaluation + Plan note Future Appointments Appointment Date:04/28/2023 09:45:00 AM Scheduled Provider:Jacqui Michael MD Location:[facility] App[facility]ment [facility]:URO [facility] App[facility]ments Appointment Date:05/14/2023 01:20:00 PM Scheduled Provider:Lani Wasserman CNP Location:[facility] App[facility]ment Type:[facility] Diagnosis Onset Date Resolution Status CHF (congestive heart failure) acute CHF exacerbation acute [facility] Work Phone: Evaluation note* Diagnosis Onset Date Resolution Status Acute diastolic CHF (congest joan heart failure), NYHA class 3 acute Aortic stenosis acute CHF (congestive heart failure) acute CHF exacerbation acute Pulmonary hypertension acute [facility] Work Phone: Evaluation note* Diagnosis Paroxysmal atrial fibrillation (CMS/HCC)- Primary Atrial fibrillation Anticoagulated Encounter for long-term (current) use of anticoagulants Nonrheumatic aortic valve stenosis Abnormal echocardiogram Nonspecific (abnormal) findings on radiological and other examination of other intrathoracic organs Pulmonary hypertension (CMS/HCC) Other chronic pulmonary heart diseases Stage 3a chronic kidney disease (CMS/HCC) Current smoker Diabetes mellitus type II, non insulin dependent ([facility]/HCC) Type II or unspecified type diabetes mellitus without mention of complication, not stated as uncontrolled BMI 31.0-31.9,adult Mixed hyperlipidemia Essential hypertension Unspecified essential hypertension documented in this encounter [facility] Work Phone: Evaluation note* Diagnosis Nonrheumatic aortic valve stenosis Pulmonary hypertension (CMS/HCC) Other chronic pulmonary heart diseases documented in this encounter [facility] Work Phone: Evaluation note* Diagnosis Nonrheumatic aortic valve stenosis Pulmonary hypertension (CMS/HCC) Other chronic pulmonary heart diseases documented in this encounter [facility] Work Phone: History and physical note Author Gina Poole [facility] November 18, 2022 10:13pm Note Date/Time November 18, 2022 10:1 1pm [facility] [address] [place] [address] Hospitalist H&P Signed Patient: Martin Hagen MR#: [id number] : 1950 Acct:[id number] Age/Sex: 71 / F Adm Date: 3 Loc: 4 Room: [address] [place] [address] Type: ADM IN Attending Dr: Gina Poole [...] dulaglutide 0.75 mg/0.5 mL subcutaneous pen injector ([facility] 0.75 mg subcut QWEEK 11/18/22 [History Confirmed [...] % (Auto) 22.5 % (.) 11/18/22 17:51 Wake % (Auto) 5.7 % (.) 11/18/22 17:51 Eos % (Auto) 1.7 % (.) 11/18/22 17:51 Baso % (Auto) 0.7 % (.) 11/18/22 17:51 Nucleat RBC Rel Count 0.0 /100 WBC (0-0.5) 11/18/22 17:51 Neut # (Auto) 4.7 x10E3/uL (1.8-7.7) 11/18/22 17:51 Lymph # (Auto) 1.5 x10E3/uL (1.00-4.8) 11/18/22 17:51 [place] # (Auto) 0.4 x10E3/uL (0.0-0.8) 11/18/22 17:51 [...] <Electronically signed by Gina Poole DO> 11/18/22 8365 [facility] Work Phone: History of Present illness Narrative* [...] medication regimen. She denies medication side effects. [facility] 250 DO Work Phone: Hospital course Narrative No data available for this section [facility] Hospital Discharge instructions No data available for this section [facility]* Initiate Home Health Time Frame: 1 Day, Location: Determined By Patient Additional Instructions Home Health to manage care: - Full code - PT/OT eval and treat - Routine vital signs - Medication management and education - BMP on 11/26 - result to Primary Care Provider -[facility] Work Phone: Progress note No data available for this section [facility] Progress note Author Gina Poole [facility] November 19, 2022 11:54am Note Date/Time November 19, 2022 11:5 4am [facility] [address] [place] [address] Hospitalist Progress Note Signed Patient: Martin Hagen MR#: [id number] : 1950 Acct:[id number] Age/Sex: 71 / F Adm Date: 3 Loc: Room: [address] [place] [address] Type: ADM IN Attending Dr: Gina Poole [...] Dose Route Start Last Admin Trade Name Vijayq PRN Reason Stop Dose Admin Hydrocodone Bitart/Acetaminophen [...] 45 Signed By: <Electronically signed by Gina Poole, > 11/19/22 3251 [facility] Work Phone: Progress note Author Rey Arriaga [facility] November 20, 2022 10:30am Note Date/Time November 20, 2022 10:3 0am [facility] [address] [place], [place] [id number] Cardiology Progress Note Signed Patient: Martin Hagen MR#: [id number] : 1950 Acct:[id number] Age/Sex: 71 / F Adm Date: 3 Loc: 4 Room: [address] [place] [address] Type: ADM IN Attending Dr: Gina Poole [...] MPV Neut % (Auto) Lymph % (Auto) [place] % (Auto) Eos % (Auto) Baso % (Auto) Nucleat RBC Rel Count Neut # (Auto) Lymph # (Auto) [place] # (Auto) Eos # (Auto) Baso # [...] % (Auto) 68.4 Lymph % (Auto) 22.4 [place] % (Auto) 6.7 Eos % (Auto) 2.1 Baso % (Auto) 0.4 Nucleat RBC Rel Count 0.1 Neut # (Auto) 3.7 Lymph # (Auto) 1.2 [place] # (Auto) 0.4 Eos # (Auto) 0.1 [...] MPV Neut % (Auto) Lymph % (Auto) [place] % (Auto) Eos % (Auto) Baso % (Auto) Nucleat RBC Rel Count Neut # (Auto) Lymph # (Auto) [place] # (Auto) Eos # (Auto) Baso # [...] signed by MD Rey Arriaga> 11/20/22 1030 [facility] Work Phone: Progress note Author Gina Poole [facility] November 20, 2022 2:12pm Note Date/Time November 20, 2022 2:12 pm [facility] [address] [place] [address] Hospitalist Progress Note Signed Patient: Martin Hagen MR#: [id number] : 1950 Acct:[id number] Age/Sex: 71 / F Adm Date: 3 Loc: Room: [address] [place] [address] Type: ADM IN Attending Dr: Gina Poole [...] Tablet PO 11/19/23 08:59 10 mg DAILY OSCRA Administration Fluoxetine HCl 40 mg 11/19/22 09:00 [...] Insuln.Pen SUBCUT 11/19/23 11:59 Not Given TID.WM.HS [facility] Protocol Magnesium Oxide 400 mg 11/19/22 09:00 [...] <Electronically signed by Gina Poole DO> 11/20/[address] [place] [address] Work Phone: Progress note Author Colin Carrillo [facility] November 21, 2022 11:31am Note Date/Time November 21, 2022 11:3 1am [facility] [address] [place] [address] Cardiology Progress Note Signed Patient: Martin Hagen MR#: [id number] : 1950 Acct:[id number] Age/Sex: 71 / F Adm Date: 3 Loc: Room: [address] [place] [address] Type: ADM IN Attending Dr: Gina Poole [...] % (Auto) 70.8 Lymph % (Auto) 18.9 [place] % (Auto) 7.3 Eos % (Auto) 2.7 Baso % (Auto) 0.3 Nucleat RBC Rel Count 0.1 Neut # (Auto) 4.1 Lymph # (Auto) 1.1 [place] # (Auto) 0.4 Eos # (Auto) 0.2 Baso # (Auto) 0.0 PHA Creatinine Clear Sodium Potassium Chloride Carbon Dioxide Anion Gap BUN Creatinine Est GFR (CKD-EPI) Glucose POC Glucose 123 135 Calcium 11/21/22 11/21/22 04:47 08:37 Corrected WBC Uncorrected WBC Count RBC Hgb Hct MCV MCH MCHC RDW Plt Count MPV Neut % (Auto) Lymph % (Auto) Wake % (Auto) Eos % (Auto) Baso % (Auto) Nucleat RBC Rel Count Neut # (Auto) Lymph # (Auto) [place] # (Auto) Eos # (Auto) Baso # [...] aggressive diuresis Documented By: Colin Carrillo MD, [facility] 3 1127 Signed By: <Electronically signed by MD PLACIDO Carrillo> 11/21/22 1131 [facility] Work Phone: Reason for referral (narrative)* Consultation (Routine) - Authorized Specialty Diagnoses / Procedures Referred By Contac t Referred To Contact Cardiology Diagnoses Paroxysmal atrial fibrillation (CMS/HCC) Procedures Follow Up In Cardiology Annika Kaba, MID LEVEL BUSINESS ANALYST-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 WHEEL FORMER [facility] [facility] [address], [address] [address] Referral ID Status Reason Start Date Expiration Date V isits Requested Visits Authorized [id number] Authorized 03/30/2023 03/29/2024 1 1 * CV Imaging (Routine) - Pending Review Specialty Diagnoses / Procedures Referred By Contac t Referred To Contact Cardiology Diagnoses Nonrheumatic aortic valve stenosis Pulmonary hypertension (CMS/HCC) Procedures Transthoracic Echo (TTE) Complete DC ECHO TRANSTHORC R-T 2D W/WO M-MODE REC F-UP/LMTD DC DOP ECHOCARD COLOR FLOW VELOCITY MAPPING DC DOP ECHOCARD PULSE WAVE W/SPECTRAL F-UP/LMTD STD 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 Work Phone: Summary Purpose Family History [...] Mother(V17.3, Z82.49) Status:Active Aortic valve replaced: Candice r(V43.3, Z95.2) Status:Active Family history of myocardial infarction: [...] Referral Specialty Diagnoses / Procedures Referred By Contac t Referred To Contact Cardiology Diagnoses Nonrheumatic aortic valve stenosis Pulmonary hypertension (CMS/HCC) Procedures Transthoracic Echo (TTE) Complete DC ECHO TRANSTHORC R-T 2D W/WO M-MODE REC F-UP/LMTD DC DOP ECHOCARD COLOR FLOW VELOCITY MAPPING DC DOP ECHOCARD PULSE WAVE W/SPECTRAL F-UP/LMTD STD Annika Kaba, MID LEVEL BUSINESS 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-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 [employer] FORMER [facility] [facility] 2, [facility] [address] [place] [address] Referral ID Status Reason Start Date Expiration Date Visits Requested Visits Authorized [id number] Pending Review Perform Procedure 3 03/29/2024 1 1 Additional Source Comments INFORMATION SOURCE (unrecogn ized section and content) DATE CREATED AUTHOR 10/21/2017 [facility] DATE CREATED AUTHOR AUTHOR'S ORGANIZ ATION 10/06/2021 [facility] DATE CREATED AUTHOR AUTHOR'S ORGANIZ ATION 09/13/2022 [facility] DATE CREATED AUTHOR AUTHOR'S ORGANIZ ATION 11/02/2022 [facility] DATE CREATED AUTHOR AUTHOR'S ORGANIZ ATION 12/24/2022 [facility] DATE CREATED AUTHOR AUTHOR'S ORGANIZ ATION 12/29/2022 [facility] DATE CREATED AUTHOR AUTHOR'S ORGANIZ ATION 12/30/2022 [employer] DATE CREATED AUTHOR AUTHOR'S ORGANIZ ATION 04/07/2023 [facility] DATE CREATED AUTHOR AUTHOR'S ORGANIZ ATION 05/07/2023 Dipak Pulido [facility] DATE CREATED AUTHOR AUTHOR'S ORGANIZ ATION 05/09/2023 [facility] REASON FOR VISIT (unrecogniz ed section and content) Reason Comments Follow-up 4m Specialty Diagnoses / Procedures Referred By Contcharles t Referred To Contact Cardiology Diagnoses Nonrheumatic aortic valve stenosis Pulmonary hypertension (CMS/HCC) Procedures Transthoracic Echo (TTE) Complete DC ECHO TRANSTHORC R-T 2D W/WO M-MODE REC F-UP/LMTD DC DOP ECHOCARD COLOR FLOW VELOCITY MAPPING DC DOP ECHOCARD PULSE WAVE W/SPECTRAL F-UP/LMTD STD Annika Kaba, MID LEVEL BUSINESS ANALYST-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 FORMER [facility] [facility] 2, [address] [place] [address] Referral ID Status Reason Start Date Expiration Date Visits Requested Visits Authorized [id number] Pending Review Perform Procedure 3 03/29/2024 1 [...] Antunez RN Other Provider Active Melody Canela DO Other Provider Active Colin Carrillo MD Other Provider Active Rey Arriaga MD Other Provider Active Jeffry Hardy MD Other Provider Active Farhat Saleem MD Other Provider Active Annika Kaba APRN Other Provider Active Kellie Okeefe MD Other Provider Active Jack Cooley MD Other Provider Active Daniella Estrada MD Other Provider Active Sonia Urena [facility]- Other Provider Active Tatiana Shafer MD Other Provider Active Team Status: Active Member Role Status Arlyn Barber II MD Primary Care Provider Active Venkatesh Trammell DO Emergency Provider Active Gina Poole DO Admit Provider, Attending Provider Active [employer] Relationship Specialty Start Date End Date Shawn Barber MD [address] [facility] [address] [place] [address] PCP - General 12/28/22 Shawn Barber MD [address] [place] [address] 12/28/22 [employer] 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 [employer] [facility]. provides no warranty or guarantee of the accuracy or completeness of information in this document.
[2023-05-11 17:08] LABS: INR 1.04
[2023-05-11 17:12] LABS: Alanine Aminotransferase 23 U/L (14-59); Albumin Globulin Ratio 0.5; Albumin Level 2.1 g/dL (3.4-5.0); Alkaline Phosphatase 86 U/L (46-116); Anion Gap 13.9; Aspartate Amino Transferase 26 U/L (15-37); BUN Creatinine Ratio 26.9; Bilirubin Total 0.3 mg/dL (0.2-1.0); Carbon Dioxide 24.7 mmol/L (21.0-32.0); Chloride 89 mmol/L (98-107); Estimated GFR (African America 23 (>=60); Estimated GFR (Non-African Ame 19 (>=60); Glucose 115 mg/dL (74-106); Sodium 125 mmol/L (136-145); Total Protein 6.1 g/dL (6.4-8.2); Troponin I High Sensitivity 11.5 pg/mL (4.0-51.3)
[2023-05-11 17:16] LABS: Calcium 5.7 mg/dL (8.5-10.1); Potassium 2.6 mmol/L (3.5-5.1)
[2023-05-11] MEDS: ONDANSETRON PF 4 MG/2 ML VIAL IV (17:25)
[2023-05-11] MEDS: FENTANYL CITRATE/PF 100 MCG/2 ML VIAL 50 MCG IV (17:25)
[2023-05-11] MEDS: BACITRACIN 0.9 GM PACKET 1 PACKET TOPICAL (17:25)
[2023-05-11] MEDS: 0.9 % SODIUM CHLORIDE 1,000 ML 100 ML IV (17:26)
[2023-05-11] MEDS: POTASSIUM CHLORIDE IN 0.9%NACL 1,000 ML 250 MEQ IV (17:44)
--- NOTE | 2023-05-11 18:02 | CT_ITS ---
The [address] [address] Patient Name: MARTIN HAGEN MRN: [id number] date: 1950 Sex: F Assigned Patient Location: ER Current Patient Location: ED.MAIN Accession/Order Number: [id number] Exam Date: 05/11/2023 18:13 Report Date: 05/11/2023 18:34 At the request of: RASHAD BOUCHER Procedure: CT facial bones wo con EXAM: Facial bone CT without contrast. Dose reduction technique used: Automated exposure control and/or adjustment of the mA and/or kV according to patient size and/or use of iterative reconstruction technique. REASON FOR EXAM: fall COMPARISON: None FINDINGS: Acute prominently displaced fracture of the left mandibular condyle with the mandibular head displaced and dislocated anteriorly. No other acute facial bone or paranasal sinus fractures. Bilateral orbits are intact. Bilateral globes are grossly intact. No orbital hematoma or inflammatory changes. Paranasal sinuses and mastoid air cells are clear. Remainder unremarkable. CT/CT facial bones wo con IMPRESSION: Acute left mandibular condyle fracture with anterior displacement of the mandibular head and dislocation of the temporomandibular joint. Electronically authenticated by: EBEN REIS Date: 05/11/2023 18:34
[2023-05-11 18:41] LABS: Troponin I High Sensitivity 12.1 pg/mL (4.0-51.3)
--- OUTSIDE RECORDS SUMMARY | 2023-05-11 20:21 | XMS_ITS | CCD ---
Author Name Unknown Address [address] [place] [address] Organization [facility] Care Team Providers Care Casting Chipper Name Role Phone KASANDRA BROWN Unavailable Unavailable [...] Care Provider DO Venkatesh Trammell Emergency Provider [phone] DO Gina Poole Admit Provider [phone] DO Gina Poole Attending Provider BENITO Antunez Other Provider Unavailable DO Melody Canela Other Provider MD Colin Carrillo Other Provider MD Rey Arriaga Other Provider MD Jeffry Hardy Other Provider MD Farhat Saleem Other Provider JERMAINE Montanez Other Provider MD Kellie Okeefe Other Provider MD Jack Cooley Other Provider MD Daniella Estrada Other Provider Ayanna [facility] Sonia Faustin Other Provider MD Tatiana Shafer [...] rash, Unknown (qualifier value) [facility] (2 sources) virgin wool Propensity to adverse reactions Unknown [employer] [facility] [employer] Other (2 sources) pinneapple Propensity to adverse reactions rash [facility] [employer] Other (13 sources) Bee/Wasp/Ant venom; Translations: [Bee Stings] Drug allergy Swelling of body region (finding) [facility] (15 sources) Naproxen; Translations: [naproxen] Drug Allergy 5 AOF, Unknown [facility] (14 sources) Pineapple; Translations: [PINEAPPLE] Drug allergy 3 Unknown (qualifier value) [facility] (1 source) Bee Sting Drug allergy Unknown [employer] Other (2 sources) Naproxen Drug Allergy 5 [facility] Repository (1 source) Naproxen; Translations: [NAPROXEN SODIUM] Drug Allergy 5 [facility] Repository (1 source) BEE VENOM PROTEIN (HONEY BEE); Translations: [BEE VENOM PROTEIN (HONEY BEE)] Propensity to adverse reactions to drug (disorder) 3 [facility] Rep[facility] (1 source) WOOL; Translations: [WOOL] Propensity to adverse reactions to drug (disorder) 3 [facility] (1 source) No Known Medication Allergies; Translations: [No Known Medication Allergies] Propensity to adverse reactions (disorder) [facility] Repository Medications Current Medications Medication Drug [...] Start: 03-11-2021 take 4 tablets by mo [facility] once daily Rexulti 0.25 mg oral tablet [...] day(s), # 14 tab(s), Refills(s) 0, Pharmacy: [facility], 153, cm, 02/12/23 11:42:00 EDT, Height/Length Dosing, 68.3, kg, 02/03/23 9:09:00 EDT, Weight Dosing Start Date: 02/22/23 Stop Date: 03/01/23 Status: Ordered Start: 02-03-2023 End: 02-06-2023 take 1 tablet by mouth twice daily Cipro 500 mg Tab 500 mg = 1 tab(s), Oral, BID, X 3 day(s), # 6 tab(s), Refills(s) 0, Pharmacy: [facility], 153, cm, 02/03/23 9:09:00 EDT, [...] 8am., # 1 tab(s), Refills(s) 0, Pharmacy: [facility], 154, cm, 06/10/22 10:26:00 EST, [...] x 1 month, then 2x/week for maintainence, [facility], 153, cm, 02/03/23 9:09:00 EDT, [...] 08/16/14 Status: Ordered take 1 capsule by [facility] every twenty-four hours FLUoxetine HCl 20 MG [...] 05/11/17 Status: Ordered take 1 puff(s) by [facility] twice daily fluticasone propion-salmeteroL (Advair Diskus) 250-50 [...] QIDACHS, # 1 tab(s), Refills(s) 0, Pharmacy: [facility], 154, cm, 01/25/20 14:09:00 EDT, [...] Daily, # 30 tab(s), Refills(s) 6, Pharmacy: [facility], 153, cm, 04/28/23 9:47:00 EST, [...] each continuously. 0 Active polyethylene glycol 3350 84466 mg powder for oral solution (4 sources) Osmotic Laxative Start: 08-08-2020 Miralax 3350 17 gram packet 17 gram, Oral, Daily, # 255 gram, Refills(s) 3, Pharmacy: [facility], 154, cm, 08/08/20 12:03:00 EDT, Height/Length Dosing, 88.1, kg, 08/08/20 12:03:00 EDT, Weight Dosing Start Date: 08/08/20 Status: Ordered polyethylene glycol 3350 930332 mg / potassium chloride 1480 mg / sodium bicarbonate 5720 mg / sodium chloride 19348 mg powder for oral solution (2 sources) Osmotic Laxative Start: 12-31-2021 NuLYTELY Crane oral powder for reconstitution See Instructions, 1 EA, Refill(s) 0, Prior to colonoscopy., [facility], 154, cm, 12/31/21 14:58:00 EDT, Height/Length Dosing, 79.4, kg, 12/31/21 14:58:00 EDT, Weight Dosing Start Date: 12/31/21 Status: Ordered polymyxin b 66164 unt/ml / trimethoprim 1 mg/ml ophthalmic solution (1 source) Dihydrofolate Reductase Inhibitor Antibacterial, Polymyxin-class Antibacterial Start: 12-13-2021 take 1 drop(s) into the eye(s) four times daily Polymyxin B-Trimethoprim 74938-4.1 UNIT/ML 1 drop into affected eye Ophthalmic [...] day(s), # 90 cap(s), Refills(s) 0, Pharmacy: [facility], 154, cm, 12/31/21 14:58:00 EDT, [...] 11-07-2019 Chronic Other aftercare (2 sources) 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; Translations: [OTHER SHELTER (CURRENT) DRUG THERAPY] Onset: 8 Episodic Other aftercare (1 source) exterminator helper (current) use of anticoagulants; Translations: [SHELTER CURRNT USE ANTICOAGULANTS] Onset: 3 Episodic Other aftercare (1 source) exterminator helper (current) use of inhaled steroids; Translations: [DAMASCENER USE OF INHALED STEROIDS] Onset: 3 Episodic Other aftercare (2 sources) [facility] (current) use of insulin; Translations: [DAMASCENER CURRENT USE OF INSULIN] Onset: 3 Episodic [...] 3 UNSP] Onset: 3 Unclassified (1 source) SHELTER INJECT NONINSULN ANTIDIAB; Translations: [DAMASCENER INJECT NONINSULN ANTIDIAB] Onset: 3 Unclassified (1 [...] UNSPECIFIED] Onset: 04-23-2023 Other aftercare (1 source) exterminator helper (current) use of aspirin; Translations: [SHELTER CURRENT USE OF ASPIRIN] Onset: Episodic Other [...] Lin MD on 05/07/2023 5:32 PM Normal [facility] Screenson 04-30-2023 Screens [id number] 20 [id number]#[id number] 0TIFF Normal [facility] Heart TransthoracicOrdere d By: Colin Carrillo on 04-30-2023 Aortic Valve Area by Continuity of Peak Velocity 1.21 [facility] Work Phone: Aortic Valve Area by Continuity of VTI 1.29 [facility] Work Phone: AV mn grad 15.0 [facility] Work Phone: [phone] AV pk grad 28.9 [facility] Work Phone: AV pk amrit 2.69 [facility] Work Phone: LV A4C EF 43.9 [facility] Work Phone: LVIDd 3.90 [facility] Work Phone: LVOT diam 2.10 [facility] Work Phone: MV avg E/e' ratio 18.50 [facility] Work Phone: MV E/A ratio 0.76 [facility] Work Phone: RVSP 34.6 [facility] Work Phone: [facility] Work Phone: Heart Transthoracicon [address], Suite [facility], [place] [address] TRANSTHORACIC ECHOCARDIOGRAM REPORT Patient Name: MARTIN Cuba Physician: [id number] Colin Carrillo MD, [facility] Study Date: 04/29/2023 Ordering Provider: [id number] ANNIKA KABA MRN/PID: [id number] Fellow: Nurse: Date of /Age: 8 1950 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 Gender: F Additional Staff: Height: 152.40 cm Admit Date: Weight: 72.58 kg Admission Status: BSA: 1.70 m2 Department Location: [facility] Blood Pressure: 122 /64 mmHg Study Type: TRANSTHORACIC ECHO (TTE) COMPLETE Diagnosis/ICD: Nonrheumatic aortic (valve) stenosis-I35.0 Indication: Paroxysmal Atrial Fibrillation, COPD-on O2 at 2-3l, Diabetes, HTN, Hyperlipidemia, Tobacco Abuse, CKD-Stage III, Pulmonary HTN CPT Codes: Echo Complete w Full Doppler-34304 Study Detail: The following Echo studies were [...] 0.9 m/s (0.6-0.9m/s) PV Max P.3 mmHg [id number] Colin Carrillo MD, [facility] Electronically signed on 04/30/2023 at 3:47:08 PM Final (more content not included)... [facility] Work Phone: Ambulatory Visit Summaryon 1 [...] PM EST With: Lani Wasserman CNP Where: [facility] Ambulatory Visit Summary MARTIN HAGEN :1950 [...] PM EST With: Lani Wasserman CNP Where: [facility] Patient Educationon 04-28-20 Patient Education Obstetrics [...] these instructions at home: Medicines ? Take xtby-bzx-nxfdhkg and prescription medicines only as told by [...] Reviewed: 11/29/2020 Elsevier Patient Education ? [address] [employer] [facility] Urology Office/Clinic Noteon 04-28-2023 Urology Office/Clinic [...] due to (more content not included)... Normal [facility] Comment on above: Result Comment: Elec tronically Signed By: Alec XIE, Jacqui Nieves\.br\Date and Time Signed: 04/28/23 10:55 EST\.br\Electronically Co-Signed By: Brisa Russell\.br\Date and Time Co-Signed: 04/28/23 10:25 EST Physician Referralon 023 Physician Referral [id number] [id number]#[address] [facility] Physician Referralon 023 Physician Referral [id number] 20 [id number]#1.[address] [facility] Consent for Procedure/Surger yon 02-22-2023 Consent for Procedure/Surgery [id number]#1. 00TIFF [facility] Consent for Treatmenton 02-01 Consent for Treatment [id number]#1.[address] [facility] Inpatient Patient Summaryon 02-22-2023 Inpatient Patient Summary [place] [address] Clinical Summary Person Information Name: MARTIN HAGEN Age: 72 Years : 1950 Sex: Female PCP: SHAWN BARBER MD Marital Status: Race: White Ethnicity: Non- or Language: Serbian Visit Id: Visit Reason: RECURRENT UTI Speciality: Acuity: Enc Type: Outpatient Med Service: Surgery Arrival: 02/22/2023 09:20:37 Discharge: Dispo Type: Address: [address] [place] [phone] Provider Notes: Diagnosis: Emphysematous cystitis; Pneumaturia; Recurrent [...] Address: When: Jacqui Michael [address] [place] [address] [phone] Business (1) [facility] Alli [facility], [place] [id number] [phone] Business (1) Comments: Office to schedule follow up in 1 to 2 months Patient Education Information: EU - Cystoscopy Discharge Instructions (CUSTOM) Normal [facility] IntraOperative Documentson 1 IntraOperative Documents [id number]. 00TIFF Normal [facility] Main OR Intraoperative Recor don 02-22-2023 Main OR Intraoperative Record IntraOp Document Type FTURO Summary Primary Physician: Jacqui Michael MD Finalized Date/Time: 02/22/23 10:39:48 Pt. Name: MARTIN HAGEN Jocelin/Sex: 1950 Female Med Rec #: [id number] Physician: Jacqui Michael MD Financial #: [id number] Pt. Type: O Room/Bed: / Admit/Disch: 02/22/23 09:20:37 - Institution: Case Times FTURO Entry 1 Patient Times In Room 02/22/23 10:18:00 Out Room 02/22/23 10:35:00 Procedure Times Start 02/22/23 10:23:00 Stop 02/22/23 10:29:00 Anesthesia Times Last Modified By: Keisha Pride RN 02/22/23 10:35:59 Case Attendance FTURO Entry 1 Entry 2 Entry 3 Case Attendee Jacqui Michael MD [place] [facility], Keisha Pride RN, Keisha Schmitz Role Performed Surgeon - Primary Scrub - Primary Chemist Organic - Primary Time In 02/22/23 10:18:00 02/22/23 [...] By: Keisha Pride RN 02/22/23 10:[address] [facility] Main OR Preoperative Recordo n 02-22-2023 Main OR Preoperative Record Holding Area Document Type FTURO Summary Primary Physician: Jacqui Michael MD Finalized Date/Time: 02/22/23 10:13:17 Pt. Name: XIAOMARTIN/Sex: 1950 Female Med Rec #: [id number] Physician: Jacqui Michael MD Financial #: [id number] Pt. Type: O Room/Bed: / Admit/Disch: 02/22/23 [...] Comment: chronic back pain Skin Integrity Intact, Wilkinson, Warm, & Dry Vitals - EU Blood Pressure 92/54 Pulse 69 bpm Respirations 20 br/min SPO2 99 % RN Reviewed Yes Last Modified By: Keisha Pride RN 02/22/23 10:13:16 General Comments: Temp 36.6 Finalized By: Keisha Pride RN Document Signatures Signed By: Maria Elena TEJEDABrisara 02/22/23 09:34 Keisha Pride RN 02/22/23 10:[address] [facility] Operative Reporton Operative Report Patient: LAVELLE HAGEN Age: 72 years Sex: Female : 1950 Associated Diagnoses: None Author: Jacqui Michael MD Procedure Operative Information Details: Date/ Time: 02/22/2023 10:33:00. Pre-Op Dx: Emphysematous cystitis (NUG21-YU N30.80, Discharge, Medical), Pneumaturia (CCG65-MF R39.89, Discharge, Medical), Recurrent UTI (QGR89-UL N39.0, Discharge, Medical). Post-Op Dx: Same. Anesthesia [...] -Follow-up in 1 to [address] [facility] Comment on above: Result Comment: Elec tronically Signed By: Jacqui Michael MD\.br\Date and Time Signed: 02/22/23 10:37 EDT Outpatient Surgery Discharge Instructionon 02-22-2023 Outpatient Surgery Discharge Instruction [address] [address] Patient Discharge Instructions PERSON INFORMATION [...] Follow up: With: Address: When: Jacqui Michael [address] [place] [phone] Business (1) [address] [place], [place] [phone] Business (1) Comments: Office to schedule follow [...] to serve you. Thank you for choosing [facility] Normal [facility] Lab Reportson 02-10-2023 Lab Reports [id number] [facility] C Urineon 02-05-2023 Bacteria identified Cx [...] Locations R1: This test was performed at: [facility], [address] [place] [address], [address]- , [place], Normal [facility] Comment on above: Performed By: #### 2 [id number] ####[facility] [id number] [place] [address] Patient Educationon 02-04-20 23 Patient Education Obstetrics [...] these instructions at home: Medicines ? Take fimn-gff-qtgogex and prescription medicines only as told by [...] provider. Document Revised: 11/29/2020 Document Reviewed: 11/29/2020 [employer] Patient Education ? [address] [employer] [facility] Screenson 02-03-2023 Screens [id number]. 00CD:[address] [facility] Urology Office/Clinic Noteon 02-03-2023 Urology Office/Clinic [...] 2.7 (6.2 (more content not included)... Normal [facility] Comment on above: Result Comment: Elec tronically Signed By: Jacqui Michael MD\.br\Date and Time Signed: 02/03/23 10:45 EDT\.br\Electronically Co-Signed By: Brisa Russell\.br\Date and Time Co-Signed: 02/03/23 10:02 EDT\.br\Electronically Co-Signed By: Brisa Russell\.br\Date and Time Co-Signed: 02/03/23 10:12 EDT [place] 12-31-2022 Screens [id number] 0CD:[address] [facility] Ambulatory Visit Summaryon 0 12-29-2022 Ambulatory [...] XIE, Jacqui Nieves Where: [facility] Patient Educationon 12-30-19 23 Patient Education Obstetrics [...] this condition includes: ? Antibiotic medicine. ? Uehv-gyc-vyrpzkj medicines to treat discomfort. ? Drinking enough [...] these instructions at home: Medicines ? Take vpyn-gzf-kclvkpo and prescription medicines only as told by [...] Document Revie (more content not included)... Normal [facility] Urology Office/Clinic Noteon 12-29-2022 Urology Office/Clinic [...] >100k Klebsiella pneumoniae Tx'd w/Cephalexin 500mg BID [id number] Pt just started taking on Wednesday. Increased urgency. Odor to urine. Increased leaking. Home Health Nurse took sample to [facility]. Pt states she had air in [...] Skin: No rashes or suspicious lesions Assessment/Plan [facility] patient, present with daughter. BBSQ - [...] given stability and metabolic workup wnl Ordered: 20698 Measure Post Void residual urine and/or bladder [...] Psoriatic arthrit (more content not included)... Normal [facility] Comment on above: Result Comment: Elec [...] depressive disorder PHQ2 Screen Positive; Status:Complete; Done: [id number] Overweight with body mass index (BMI) of 29 to 29.9 in adult Healthy Weight Tips; Status:Complete; Done: [id number] SocHx: Current smoker Tobacco Use Screening; Status:Complete; Done: 10Kng2482 You need to stop smoking. Though it is not easy, more than half of all adult smokers have quit. We encourage you to write down all the reasons you should quit smoking and set a quit date for yourself. Ask us how we can help. You may also call 9-175-CGUBRed [employer] for free resources and assistance.; Status:Complete; Done: 35Jfv5068 Tobacco Use Screening; Status:Complete; Done: 94Nht4505 Patient Instructions Please bring all medicines, vitamins, [...] to continue without modifications. 2. Records from [facility] 3. Return for follow-up; in the interim, contact the office if new symptoms arise. Dr. Arriaga 4 months [facility] f/u: 'doing ok' MARTIN HAGEN is being seen for follow-up of a hospitalization for dyspnea. Patient presents to the office in a wheelchair, utilizing oxygen and is accompanied by family member. This is initial in clinic follow-up at [facility]. She has previously been managed by [facility] since approximately 2021. Both she and [...] are requesting to establish cardiology follow-up with [facility]. October 2022 [facility] [place] [facility] [place] to shortness of breath, seen in consultation by Dr. Jean. Echocardiogram at that time showed moderate aortic stenosis peak 46, mean 26. She was diuresed and some documentation that she was to follow-up with nephrology (not completed to date). [facility] but is [...] regular basis (more content not included)... Normal [facility] Tobacco Screening.on 023 Adult depression screening assessment Yes [place] to be 250 DO Work Phone: Adult depression screening assessment Moderate (10-14) [place] to be 250 DO Work Phone: Fall risk assessment a) No falls within the last year [place] demi 250 DO Work Phone: Tobacco use status [facility] a) Yes ALVIN-[facility] [place] [facility]-Astrid simms 250 DO Work Phone: Tobacco Screening. Yes [facility]-Sandtrevon demi 250 DO Work Phone: Tobacco Screening. 1-Several days ALVIN -[facility] Heart-Astrid simms 250 DO Work Phone: Tobacco Screening. 3-Nearly every day [facility]ms 250 DO Work Phone: Tobacco Screening. 0-Not at all Micha [facility]-Astrid simms 250 DO Work Phone: Tobacco Screening. Somewhat Difficult [facility] 250 DO Work Phone: Basic Metabolic Panelon 07-2 Anion gap [Moles/Vol] Not performed Normal 6.0-15.0 [facility] Comment on above: Performed By: #### B MP, MG, FE and TIBC, AFSANEH, CBC #### [facility] [address] [place] [address] [place] Calcium [Mass/Vol] 9.4 mg/dL Normal 8.6-10.3 [facility] Comment on above: Performed By: #### B MP, MG, FE and TIBC, AFSANEH, CBC #### [facility] [address] [place] [address] [place] Chloride [Moles/Vol] 92 mmol/L Low 98-107 [facility] Comment on above: Performed By: #### B MP, MG, FE and TIBC, AFSANEH, CBC #### [facility] [address] [place] [address] [place] CO2 [Moles/Vol] mmol/L High 21.0-31.0 [facility] Comment on above: Performed By: #### B MP, MG, FE and TIBC, AFSANEH, CBC #### [facility] [address] [place] [id number] [place] Creatinine [Mass/Vol] 1.54 mg/dL High 0.60-1.[address] [facility] Comment on above: Performed By: #### B MP, MG, FE and TIBC, AFSANEH, CBC #### [address] Creatinine Clr Calc Pharmacy 29.[address] [facility] Comment on above: Result Comment: PERF ORMED BY: [place] [address] PATHOLOGIST CERTIFIED MEDICAL TRANSCRIPTIONIST KOBE VENCES M.D. Performed By: #### B MP, MG, FE and TIBC, AFSANEH, CBC #### [address] GFR/1.73 sq M.predicted MDRD (S/P/Bld) [Vol rate/Area] 35.431 mL/min/{1.73_m2} [facility] Comment on above: Performed By: #### B MP, MG, FE and TIBC, AFSANEH, CBC #### [address] Glucose [Mass/Vol] 95 mg/dL Normal 70-100 [facility] Comment on above: Result Comment: [facility] Glucose Reference Range is dependent on time and content of last meal. Glucose of more than 200 mg/dL in a nonstressed, ambulatory subject supports the diagnosis of Diabetes Mellitus. ADA recommended reference range Performed By: #### B MP, MG, FE and TIBC, AFSANEH, CBC #### [address] Potassium [Moles/Vol] 4.6 mmol/L Normal 3.5-5.[address] [facility] Comment on above: Performed By: #### B MP, MG, FE and TIBC, AFSANEH, CBC #### [address] Sodium [Moles/Vol] 141 mmol/L Normal 136-145 [facility] Comment on above: Performed By: #### B MP, MG, FE and TIBC, AFSANEH, CBC #### [facility] [address] [place] [address] [place] Urea nitrogen [Mass/Vol] 35 mg/dL High 7-25 [facility] Comment on above: Performed By: #### B MP, MG, FE and TIBC, AFSANEH, CBC #### [facility] [address] Basophils Auto (Bld) [#/Vol] Ordered By: Gina Poole on 11-21-2022 Basophils (Bld) [#/Vol] 0.0 10*3/uL 0.0-0.2 [facility] Basophils/100 WBC Auto (Bld) Ordered By: Gina Poole on 11-21-2022 Basophils/100 WBC (Bld) 0.3 % . [facility] Calcium [Mass/volume] in Ser um or PlasmaOrdered By: Gina Poole on 11-21-2022 Calcium [Mass/Vol] 9.4 mg/dL 8.6-10.3 [facility] Carbon dioxide, total [Moles /volume] in Serum or PlasmaOrdered By: Gina Poole on 11-21-2022 CO2 [Moles/Vol] mmol/L 21.0-31.0 [facility] Chloride [Moles/volume] in S arti or PlasmaOrdered By: Gina Poole on 11-21-2022 Chloride [Moles/Vol] 92 mmol/L 98-107 [facility] Complete Blood Count Auto Di ffon 11-21-2022 Basophils (Bld) [#/Vol] 0.0 10*3/uL Normal 0.0-0.2 [facility] Comment on above: Result Comment: PERF ORMED BY: [place] [address] PATHOLOGIST CERTIFIED MEDICAL TRANSCRIPTIONIST KOBE VENCES M.D. Performed By: #### B MP, MG, FE and TIBC, AFSANEH, CBC #### [facility] [address] Basophils/100 WBC (Bld) 0.3 % Normal . [facility] Comment on above: Performed By: #### B MP, MG, FE and TIBC, AFSNAEH, CBC #### [facility] [address] [place] [address] Eosinophils (Bld) [#/Vol] 0.2 10*3/uL Normal 0.0-0.45 [facility] Comment on above: Performed By: #### B MP, MG, FE and TIBC, AFSANEH, CBC #### [address] Eosinophils/100 WBC (Bld) 2.7 % Normal . [facility] Comment on above: Performed By: #### B MP, MG, FE and TIBC, AFSANEH, CBC #### [address] Erythrocyte distribution width (RBC) [Ratio] 15.2 % Normal 11.9-15.3 [facility] Comment on above: Performed By: #### B MP, MG, FE and TIBC, AFSANEH, CBC #### [address] Hematocrit (Bld) [Volume fraction] 24.7 % Low 34.0-46.4 [facility] Comment on above: Performed By: #### B MP, MG, FE and TIBC, AFSANEH, CBC #### [address] Hemoglobin (Bld) [Mass/Vol] 8.0 g/dL Low 11.8-15.4 [facility] Comment on above: Performed By: #### B MP, MG, FE and TIBC, AFSANEH, CBC #### [address] Lymphocytes (Bld) [#/Vol] 1.1 10*3/uL Normal 1.00-4.8 [facility] Comment on above: Performed By: #### B MP, MG, FE and TIBC, AFSANEH, CBC #### [address] Lymphocytes/100 WBC (Bld) 18.9 % Normal . [facility] Comment on above: Performed By: #### B MP, MG, FE and TIBC, AFSANEH, CBC #### [address] MCH (RBC) [Entitic mass] 29.0 pg Normal 24.7-34.3 [facility] Comment on above: Performed By: #### B MP, MG, FE and TIBC, AFSANEH, CBC #### [address] MCV (RBC) [Entitic vol] 89.8 fL Normal 80-100 [facility] Comment on above: Performed By: #### B MP, MG, FE and TIBC, AFSANEH, CBC #### [address] Mean Corpuscular HGB Conc 32.3 g/dL Normal 32.0-35.0 [facility] Comment on above: Performed By: #### B MP, MG, FE and TIBC, AFSANEH, CBC #### [address] Monocytes (Bld) [#/Vol] 0.4 10*3/uL Normal 0.0-0.8 [facility] Comment on above: Performed By: #### B MP, MG, FE and TIBC, AFSANEH, CBC #### [address] Monocytes/100 WBC (Bld) 7.3 % Normal . [facility] Comment on above: Performed By: #### B MP, MG, FE and TIBC, AFSANEH, CBC #### [address] Neutrophils (Bld) [#/Vol] 4.1 10*3/uL Normal 1.8-7.7 [facility] Comment on above: Performed By: #### B MP, MG, FE and TIBC, AFSANEH, CBC #### [address] Neutrophils/100 WBC (Bld) 70.8 % Normal . [facility] Comment on above: Performed By: #### B MP, MG, FE and TIBC, AFSANEH, CBC #### [address] NRBC% 0.1 /100{WBC} Normal 0-0.5 [facility] Comment on above: Performed By: #### B MP, MG, FE and TIBC, AFSANEH, CBC #### [address] Platelet mean volume (Bld) [Entitic vol] 7.8 fL Normal 6.3-10.7 [facility] Comment on above: Performed By: #### B MP, MG, FE and TIBC, AFSANEH, CBC #### [address] Platelets (Bld) [#/Vol] 132 10*3/uL Low 150-450 [facility] Comment on above: Performed By: #### B MP, MG, FE and TIBC, AFSANEH, CBC #### [address] RBC (Bld) [#/Vol] 2.75 10*6/uL Low 3.60-5.00 [facility] Comment on above: Performed By: #### B MP, MG, FE and TIBC, AFSANEH, CBC #### [address] WBC (Bld) [#/Vol] 5.7 10*3/uL Normal 3.8-11.6 [facility] Comment on above: Performed By: #### B MP, MG, FE and TIBC, AFSANEH, CBC #### [address] Creatinine [Mass/volume] in Serum or PlasmaOrdered By: Gina Poole on 11-21-2022 Creatinine [Mass/Vol] 1.54 mg/dL 0.60-1.[address] [facility] Eosinophils Auto (Bld) [#/Vo l]Ordered By: Gina Poole on 11-21-2022 Eosinophils (Bld) [#/Vol] 0.2 10*3/uL 0.0-0.45 [facility] Eosinophils/100 WBC Auto (Bl d)Ordered By: Gina Poole on 11-21-2022 Eosinophils/100 WBC (Bld) 2.7 % . [facility] Erythrocyte distribution wid th Auto (RBC) [Ratio]Ordered By: Gina Poole on 11-21-2022 Erythrocyte distribution width (RBC) [Ratio] 15.2 % 11.9-15.3 [facility] Glucose Glucometer (BldC) [M ass/Vol]Ordered By: Gina Poole on 11-21-2022 Glucose [Mass/Vol] 149 mg/dL [facility] Comment on above: Random Glucose Refer ence Range is dependent on time and content of last meal. Glucose of more than 200 mg/dL in a nonstressed, ambulatory subject supports the diagnosis of Diabetes Mellitus. Glucose Poct Glucometerson 0 11-21-2022 Glucose [Mass/Vol] 149 mg/dL Normal [facility] Comment on above: Result Comment: [place] [facility] Glucose Reference Range is dependent on time and content of last meal. Glucose of more than 200 mg/dL in a nonstressed, ambulatory subject supports the diagnosis of Diabetes Mellitus. PERFORMED BY: [place] [address] PATHOLOGIST CERTIFIED MEDICAL TRANSCRIPTIONIST KOBE VENCES M.D. Performed By: #### B MP, MG, FE and TIBC, AFSANEH, CBC #### [facility] [address] [place] [address] Glucose [Mass/Vol] 118 mg/dL Normal [facility] Comment on above: Result Comment: [place] [facility] Glucose Reference Range is dependent on time and content of last meal. Glucose of more than 200 mg/dL in a nonstressed, ambulatory subject supports the diagnosis of Diabetes Mellitus. PERFORMED BY: [place] [address] PATHOLOGIST CERTIFIED MEDICAL TRANSCRIPTIONIST KOBE VENCES M.D. Performed By: #### B MP, MG, FE and TIBC, AFSANEH, CBC #### [facility] [address] [place] [address] [place] Glucose [Mass/volume] in Ser um or PlasmaOrdered By: iGna Poole on 11-21-2022 Glucose [Mass/Vol] 95 mg/dL 70-100 [facility] Comment on above: ADA recommended refe rence rangeRandom Glucose Reference Range is dependent on time and content of last meal. Glucose of more than 200 mg/dL in a nonstressed, ambulatory subject supports the diagnosis of Diabetes Mellitus. Hematocrit Auto (Bld) [Volum e fraction]Ordered By: Gina Poole on 11-21-2022 Hematocrit (Bld) [Volume fraction] 24.7 % 34.0-46.4 [facility] Hemoglobin [Mass/volume] in BloodOrdered By: Gina Poole on 11-21-2022 Hemoglobin (Bld) [Mass/Vol] 8.0 g/dL 11.8-15.4 [facility] Leukocytes [#/volume] correc loan for nucleated erythrocytes in Blood by Automated counOrdered By: Gina Poole on 11-21-2022 WBC corrected for nucl RBC Auto (Bld) [#/Vol] 5.7 10*3/uL 3.8-11.6 [facility] Lymphocytes Auto (Bld) [#/Vo l]Ordered By: Gina Poole on 11-21-2022 Lymphocytes (Bld) [#/Vol] 1.1 10*3/uL 1.00-4.8 [facility] Lymphocytes/100 WBC Auto (Bl d)Ordered By: Gina Poole on 11-21-2022 Lymphocytes/100 WBC (Bld) 18.9 % . [facility] MCH Auto (RBC) [Entitic mass ]Ordered By: Gina Poole on 11-21-2022 MCH (RBC) [Entitic mass] 29.0 pg 24.7-34.3 [facility] MCHC Auto (RBC) [Mass/Vol]Or dered By: Gina Poole on 11-21-2022 MCHC (RBC) [Mass/Vol] 32.3 g/dL 32.0-35.[address] [facility] MCV Auto (RBC) [Entitic vol] Ordered By: Gina Poole on 11-21-2022 MCV (RBC) [Entitic vol] 89.8 fL 80-100 [facility] Monocytes Auto (Bld) [#/Vol] Ordered By: Gina Poole on 11-21-2022 Monocytes (Bld) [#/Vol] 0.4 10*3/uL 0.0-0.8 [facility] Monocytes/100 WBC Auto (Bld) Ordered By: Gina Poole on 11-21-2022 Monocytes/100 WBC (Bld) 7.3 % . [facility] Neutrophils Auto (Bld) [#/Vo l]Ordered By: Gina Poole on 11-21-2022 Neutrophils (Bld) [#/Vol] 4.1 10*3/uL 1.8-7.7 [facility] Neutrophils/100 WBC Auto (Bl d)Ordered By: Gina Poole on 11-21-2022 Neutrophils/100 WBC (Bld) 70.8 % . [facility] No Panel InformationOrdered By: Gina Poole on 11-21-2022 Estimated GFR (CKD-EPI) 35.431 mL/Min [facility] Creatinine Clearance (Chem 29.80 [facility] Nucleated erythrocytes [Pres ence] in Blood by Automated countOrdered By: Gina Poole on 11-21-2022 Nucleated RBC Auto Ql (Bld) 0.1 /100{WBC} 0-0.5 [facility] Platelet mean volume Auto (B ld) [Entitic vol]Ordered By: Gina Poole on 11-21-2022 Platelet mean volume (Bld) [Entitic vol] 7.8 fL 6.3-10.7 [facility] Platelets Auto (Bld) [#/Vol] Ordered By: Gina Poole on 11-21-2022 Platelets (Bld) [#/Vol] 132 10*3/uL 150-450 [facility] Potassium [Moles/volume] in Serum or PlasmaOrdered By: Gina Poole on 11-21-2022 Potassium [Moles/Vol] 4.6 mmol/L 3.5-5.[address] [facility] RBC Auto (Bld) [#/Vol]Ordere d By: Gina Poole on 11-21-2022 RBC (Bld) [#/Vol] 2.75 10*6/uL 3.60-5.00 [facility] Serum or plasma anion gap de terminationOrdered By: Gina Poole on 11-21-2022 Anion gap [Moles/Vol] TNP [facility] Comment on above: Test not performed Sodium [Moles/volume] in Ser um or PlasmaOrdered By: Gina Poole on 11-21-2022 Sodium [Moles/Vol] 141 mmol/L 136-145 [facility] Urea nitrogen [Mass/volume] in Serum or PlasmaOrdered By: Gina Poole on 11-21-2022 Urea nitrogen [Mass/Vol] 35 mg/dL 7- [facility] WBC Auto (Bld) [#/Vol]Ordere d By: Gina Poole on 11-21-2022 WBC (Bld) [#/Vol] 5.7 10*3/uL 3.8-11.6 [facility] XR chest 2V*on 11-21-2022 XR chest 2V* [facility] [place] [address] XRay Report Signed Patient: Martin Hagen MR#: [id number] 52 : 1950 Acct:[id number] Age/Sex: 71 / F ADM Date: 11/18/22 Loc: Room: [address] [place] [address] Type: ADM IN Attending Dr: Gina Poole DO Copies to: DO Rey Pisano MD Ordering Provider: Rey Ariraga MD Date of Service: 11/21/22 XR/XR chest [...] Candace Godfrey M.D.11/21/2022 9:26 AM Dictation Location: [place] [address] Transcribed By: ELIANA 11/21/22925 Dictated By: Candace Godfrey II, MD 11/21/22923 Signed By: 11/21/[address] [facility] Basic Metabolic Panelon 11-01 Anion gap [Moles/Vol] 7.5 mmol/L Normal 6.0-15.[address] [facility] Comment on above: Performed By: #### C BC, BMP #### [facility] [address] Calcium [Mass/Vol] 8.7 mg/dL Normal 8.6-10.3 [facility] Comment on above: Performed By: #### C BC, BMP #### [facility] [address] Chloride [Moles/Vol] 99 mmol/L Normal 98-107 [facility] Comment on above: Performed By: #### C BC, BMP #### [facility] [address] [place] [address] [place] CO2 [Moles/Vol] 42.2 mmol/L High 21.0-31.0 [facility] Comment on above: Performed By: #### C BC, BMP #### [facility] [address] [place] [address] [place] Creatinine [Mass/Vol] 1.73 mg/dL High 0.60-1.[address] [facility] Comment on above: Performed By: #### C BC, BMP #### [facility] [address] [place] [address] [place] Creatinine Clr Calc Pharmacy 26.[address] [facility] Comment on above: Result Comment: PERF ORMED BY: [place] [address] PATHOLOGIST CERTIFIED MEDICAL TRANSCRIPTIONIST KOBE VENCES M.D. Performed By: #### C BC, BMP #### [facility] [address] [place] [address] [place] GFR/1.73 sq M.predicted MDRD (S/P/Bld) [Vol rate/Area] 30.815 mL/min/{1.73_m2} [facility] Comment on above: Performed By: #### C BC, BMP #### [address] Glucose [Mass/Vol] 104 mg/dL High 70-100 [facility] Comment on above: Result Comment: [place] Glucose Reference Range is dependent on time and content of last meal. Glucose of more than 200 mg/dL in a nonstressed, ambulatory subject supports the diagnosis of Diabetes Mellitus. ADA recommended reference range Performed By: #### C BC, BMP #### [facility] [address] Potassium [Moles/Vol] 4.7 mmol/L Normal 3.5-5.[address] [facility] Comment on above: Performed By: #### C BC, BMP #### [address] Sodium [Moles/Vol] 144 mmol/L Normal 136-145 [facility] Comment on above: Performed By: #### C BC, BMP #### [address] Urea nitrogen [Mass/Vol] 33 mg/dL High 7-25 [facility] Comment on above: Performed By: #### C BC, BMP #### [address] Complete Blood Count Auto Di ffon 11-20-2022 Basophils (Bld) [#/Vol] 0.0 10*3/uL Normal 0.0-0.2 [facility] Comment on above: Result Comment: PERF ORMED BY: [place] [address] PATHOLOGIST CERTIFIED MEDICAL TRANSCRIPTIONIST KOBE VENCES M.D. Performed By: #### C BC, BMP #### [place] [address] [place] Basophils/100 WBC (Bld) 0.4 % Normal . [facility] Comment on above: Performed By: #### C BC, BMP #### [place] [address] [place] Eosinophils (Bld) [#/Vol] 0.1 10*3/uL Normal 0.0-0.45 [facility] Comment on above: Performed By: #### C BC, BMP #### [address] Eosinophils/100 WBC (Bld) 2.1 % Normal . [facility] Comment on above: Performed By: #### C BC, BMP #### [address] Erythrocyte distribution width (RBC) [Ratio] 15.6 % High 11.9-15.3 [facility] Comment on above: Performed By: #### C BC, BMP #### [address] Hematocrit (Bld) [Volume fraction] 24.9 % Low 34.0-46.4 [facility] Comment on above: Performed By: #### C BC, BMP #### [address] Hemoglobin (Bld) [Mass/Vol] 8.0 g/dL Low 11.8-15.4 [facility] Comment on above: Performed By: #### C BC, BMP #### [address] Lymphocytes (Bld) [#/Vol] 1.2 10*3/uL Normal 1.00-4.8 [facility] Comment on above: Performed By: #### C BC, BMP #### [address] Lymphocytes/100 WBC (Bld) 22.4 % Normal . [facility] Comment on above: Performed By: #### C BC, BMP #### [address] MCH (RBC) [Entitic mass] 28.9 pg Normal 24.7-34.3 [facility] Comment on above: Performed By: #### C BC, BMP #### [address] MCV (RBC) [Entitic vol] 90.0 fL Normal 80-100 [facility] Comment on above: Performed By: #### C BC, BMP #### [facility] [address] Mean Corpuscular HGB Conc 32.1 g/dL Normal 32.0-35.0 [facility] Comment on above: Performed By: #### C BC, BMP #### [facility] [address] [place] [address] [place] Monocytes (Bld) [#/Vol] 0.4 10*3/uL Normal 0.0-0.8 [facility] Comment on above: Performed By: #### C BC, BMP #### [place] [address] [place] Monocytes/100 WBC (Bld) 6.7 % Normal . [facility] Comment on above: Performed By: #### C BC, BMP #### [facility] [address] [place] [address] Neutrophils (Bld) [#/Vol] 3.7 10*3/uL Normal 1.8-7.7 [facility] Comment on above: Performed By: #### C BC, BMP #### [place] [address] [place] Neutrophils/100 WBC (Bld) 68.4 % Normal . [facility] Comment on above: Performed By: #### C BC, BMP #### [facility] [address] [place] [address] [place] NRBC% 0.1 /100{WBC} Normal 0-0.5 [facility] Comment on above: Performed By: #### C BC, BMP #### [address] Platelet mean volume (Bld) [Entitic vol] 7.9 fL Normal 6.3-10.7 [facility] Comment on above: Performed By: #### C BC, BMP #### [place] [address] [place] Platelets (Bld) [#/Vol] 133 10*3/uL Low 150-450 [facility] Comment on above: Performed By: #### C BC, BMP #### [facility] [address] RBC (Bld) [#/Vol] 2.77 10*6/uL Low 3.60-5.00 [facility] Comment on above: Performed By: #### C BC, BMP #### [facility] [address] WBC (Bld) [#/Vol] 5.4 10*3/uL Normal 3.8-11.6 [facility] Comment on above: Performed By: #### C BC, BMP #### [facility] [address] Glucose Poct Glucometerson 0 11-20-2022 Glucose [Mass/Vol] 135 mg/dL Normal [facility] Comment on above: Result Comment: [facility] Glucose Reference Range is dependent on time and content of last meal. Glucose of more than 200 mg/dL in a nonstressed, ambulatory subject supports the diagnosis of Diabetes Mellitus. PERFORMED BY: [place] [address] PATHOLOGIST CERTIFIED MEDICAL TRANSCRIPTIONIST KOBE VENCES M.D. Performed By: #### G LULS #### Point of Care testing , Glucose [Mass/Vol] 123 mg/dL Normal [facility] Comment on above: Result Comment: [facility] Glucose Reference Range is dependent on time and content of last meal. Glucose of more than 200 mg/dL in a nonstressed, ambulatory subject supports the diagnosis of Diabetes Mellitus. PERFORMED BY: [place] [address] PATHOLOGIST CERTIFIED MEDICAL TRANSCRIPTIONIST KOBE VENCES M.D. Performed By: #### B MP, MG, FE and TIBC, AFSANEH, CBC #### [address] Glucose [Mass/Vol] 116 mg/dL Normal [facility] Comment on above: Result Comment: [facility] Glucose Reference Range is dependent on time and content of last meal. Glucose of more than 200 mg/dL in a nonstressed, ambulatory subject supports the diagnosis of Diabetes Mellitus. PERFORMED BY: [place] [address] PATHOLOGIST CERTIFIED MEDICAL TRANSCRIPTIONIST KOBE VENCES M.D. Performed By: #### G TASHA #### Point of Care testing , Glucose [Mass/Vol] 130 mg/dL Normal [facility] Comment on above: Result Comment: [facility] Glucose Reference Range is dependent on time and content of last meal. Glucose of more than 200 mg/dL in a nonstressed, ambulatory subject supports the diagnosis of Diabetes Mellitus. PERFORMED BY: [place] [address] PATHOLOGIST CERTIFIED MEDICAL TRANSCRIPTIONIST KOBE VENCES M.D. Performed By: #### B MP, MG, FE and TIBC, AFSANEH, CBC #### [address] Basic Metabolic Panelon 07-2 -2022 Anion gap [Moles/Vol] 9.8 mmol/L Normal 6.0-15.[address] [facility] Comment on above: Performed By: #### B MP, MG, FE and TIBC, AFSANEH, CBC #### [address] Calcium [Mass/Vol] 8.1 mg/dL Low 8.6-10.3 [facility] Comment on above: Performed By: #### B MP, MG, FE and TIBC, AFSANEH, CBC #### [address] Chloride [Moles/Vol] 101 mmol/L Normal 98-107 [facility] Comment on above: Performed By: #### B MP, MG, FE and TIBC, AFSANEH, CBC #### [address] CO2 [Moles/Vol] 38.1 mmol/L High 21.0-31.0 [facility] Comment on above: Performed By: #### B MP, MG, FE and TIBC, AFSANEH, CBC #### [facility] [address] Creatinine [Mass/Vol] 1.76 mg/dL High 0.60-1.[address] [facility] Comment on above: Performed By: #### B MP, MG, FE and TIBC, AFSANEH, CBC #### [facility] [address] [place] [address] [place] Creatinine Clr Calc Pharmacy 25.[address] [facility] Comment on above: Performed By: #### B MP, MG, FE and TIBC, AFSANEH, CBC #### [facility] [address] [place] [address] [place] GFR/1.73 sq M.predicted MDRD (S/P/Bld) [Vol rate/Area] 30.185 mL/min/{1.73_m2} [facility] Comment on above: Performed By: #### B MP, MG, FE and TIBC, AFSANEH, CBC #### [address] Glucose [Mass/Vol] 100 mg/dL Normal 70-100 [facility] Comment on above: Result Comment: [facility] Glucose Reference Range is dependent on time and content of last meal. Glucose of more than 200 mg/dL in a nonstressed, ambulatory subject supports the diagnosis of Diabetes Mellitus. ADA recommended reference range Performed By: #### B MP, MG, FE and TIBC, AFSANEH, CBC #### [facility] [address] Potassium [Moles/Vol] 4.9 mmol/L Normal 3.5-5.[address] [facility] Comment on above: Performed By: #### B MP, MG, FE and TIBC, AFSANEH, CBC #### [place] [address] [place] Sodium [Moles/Vol] 144 mmol/L Normal 136-145 [facility] Comment on above: Performed By: #### B MP, MG, FE and TIBC, AFSANEH, CBC #### [facility] [address] [place] [address] [place] Urea nitrogen [Mass/Vol] 28 mg/dL High 7-25 [facility] Comment on above: Performed By: #### B MP, MG, FE and TIBC, AFSANEH, CBC #### [address] Complete Blood Count Auto Di ffon 11-19-2022 Basophils (Bld) [#/Vol] 0.0 10*3/uL Normal 0.0-0.2 [facility] Comment on above: Result Comment: PERF ORMED BY: [place] [address] PATHOLOGIST CERTIFIED MEDICAL TRANSCRIPTIONIST KOBE VENCES M.D. Performed By: #### B MP, MG, FE and TIBC, AFSANEH, CBC #### [address] Basophils/100 WBC (Bld) 0.7 % Normal . [facility] Comment on above: Performed By: #### B MP, MG, FE and TIBC, AFSANEH, CBC #### [address] Eosinophils (Bld) [#/Vol] 0.1 10*3/uL Normal 0.0-0.45 [facility] Comment on above: Performed By: #### B MP, MG, FE and TIBC, AFSANEH, CBC #### [address] Eosinophils/100 WBC (Bld) 2.0 % Normal . [facility] Comment on above: Performed By: #### B MP, MG, FE and TIBC, AFSANEH, CBC #### [address] Erythrocyte distribution width (RBC) [Ratio] 15.5 % High 11.9-15.3 [facility] Comment on above: Performed By: #### B MP, MG, FE and TIBC, AFSANEH, CBC #### [address] Hematocrit (Bld) [Volume fraction] 26.7 % Low 34.0-46.4 [facility] Comment on above: Performed By: #### B MP, MG, FE and TIBC, AFSANEH, CBC #### [address] Hemoglobin (Bld) [Mass/Vol] 8.5 g/dL Low 11.8-15.4 [facility] Comment on above: Performed By: #### B MP, MG, FE and TIBC, AFSANEH, CBC #### [address] Lymphocytes (Bld) [#/Vol] 1.6 10*3/uL Normal 1.00-4.8 [facility] Comment on above: Performed By: #### B MP, MG, FE and TIBC, AFSANEH, CBC #### [address] Lymphocytes/100 WBC (Bld) 25.1 % Normal . [facility] Comment on above: Performed By: #### B MP, MG, FE and TIBC, AFSANEH, CBC #### [address] MCH (RBC) [Entitic mass] 29.0 pg Normal 24.7-34.3 [facility] Comment on above: Performed By: #### B MP, MG, FE and TIBC, AFSANEH, CBC #### [address] MCV (RBC) [Entitic vol] 91.3 fL Normal 80-100 [facility] Comment on above: Performed By: #### B MP, MG, FE and TIBC, AFSANEH, CBC #### [address] Mean Corpuscular HGB Conc 31.8 g/dL Low 32.0-35.0 [facility] Comment on above: Performed By: #### B MP, MG, FE and TIBC, AFSANEH, CBC #### [address] Monocytes (Bld) [#/Vol] 0.4 10*3/uL Normal 0.0-0.8 [facility] Comment on above: Performed By: #### B MP, MG, FE and TIBC, AFSANEH, CBC #### [address] Monocytes/100 WBC (Bld) 6.6 % Normal . [facility] Comment on above: Performed By: #### B MP, MG, FE and TIBC, AFSANEH, CBC #### [address] Neutrophils (Bld) [#/Vol] 4.1 10*3/uL Normal 1.8-7.7 [facility] Comment on above: Performed By: #### B MP, MG, FE and TIBC, AFSANEH, CBC #### [address] Neutrophils/100 WBC (Bld) 65.6 % Normal . [facility] Comment on above: Performed By: #### B MP, MG, FE and TIBC, AFSANEH, CBC #### [address] NRBC% 0.1 /100{WBC} Normal 0-0.5 [facility] Comment on above: Performed By: #### B MP, MG, FE and TIBC, AFSANEH, CBC #### [address] Platelet mean volume (Bld) [Entitic vol] 7.6 fL Normal 6.3-10.7 [facility] Comment on above: Performed By: #### B MP, MG, FE and TIBC, AFSANEH, CBC #### [address] Platelets (Bld) [#/Vol] 140 10*3/uL Low 150-450 [facility] Comment on above: Performed By: #### B MP, MG, FE and TIBC, AFSANEH, CBC #### [address] RBC (Bld) [#/Vol] 2.93 10*6/uL Low 3.60-5.00 [facility] Comment on above: Performed By: #### B MP, MG, FE and TIBC, AFSANEH, CBC #### [facility] [address] WBC (Bld) [#/Vol] 6.2 10*3/uL Normal 3.8-11.6 [facility] Comment on above: Performed By: #### B MP, MG, FE and TIBC, AFSANEH, CBC #### [facility] [address] [place] [address] Creatine Kinaseon 11-19-2022 CK [Catalytic activity/Vol] 31 U/L Normal [facility] Comment on above: Order Comment: ultra sound come back in 10 mins Performed By: #### B MP, MG, FE and TIBC, AFSANEH, CBC #### [address] CK [Catalytic activity/Vol] 35 U/L Normal [facility] Comment on above: Performed By: #### B MP, MG, FE and TIBC, AFSANEH, CBC #### [address] Creatine kinase [Enzymatic a ctivity/volume] in Serum or PlasmaOrdered By: Gina Poole on 11-19-2022 CK [Catalytic activity/Vol] 31 U/L [facility] ECH echo transthoracicon ECH echo transthoracic [facility] [place] [address] [place] [address] Echocardiogram Signed Patient: Martin Hagen MR#: [id number] 52 : 1950 Acct:[id number] Age/Sex: 71 / F ADM Date: 11/18/22 Loc: Room: [address] [place] [address] Type: ADM IN Attending Dr: Gina Poole DO Ordering Provider: Gina Poole DO Date of Service: 11/18/22 ECH/ECH echo transthoracic: Shortness of Breath/Dyspnea Copies to: Colin Carrillo MD, FACC Gina Poole DO Height: 60 in Weight: 169 lb Performed By: Adrianna Díaz [facility] BSA: 1.7 m2 BP: 150/74 mmHg HR: [...] 1.5 cm2 (more content not included)... Normal [facility] Ferritinon 11-19-2022 Ferritin [Mass/Vol] 388.8 ng/mL High 11.0-306.8 [facility] Comment on above: Result Comment: PERF ORMED BY: [place] [address] PATHOLOGIST CERTIFIED MEDICAL TRANSCRIPTIONIST KOBE VENCES M.D. Performed By: #### B MP, MG, FE and TIBC, AFSANEH, CBC #### [facility] [address] Ferritin [Mass/volume] in Se rum or PlasmaOrdered By: Gina Poole on 11-19-2022 Ferritin [Mass/Vol] 388.8 ng/mL 11.0-306.8 [facility] Glucose Poct Glucometerson 0 11-19-2022 Glucose [Mass/Vol] 140 mg/dL Normal [facility] Comment on above: Result Comment: [place] om Glucose Reference Range is dependent on time and content of last meal. Glucose of more than 200 mg/dL in a nonstressed, ambulatory subject supports the diagnosis of Diabetes Mellitus. PERFORMED BY: [facility] [address] [place] [address] PATHOLOGIST CERTIFIED MEDICAL TRANSCRIPTIONIST KOBE VENCES M.D. Performed By: #### B MP, MG, FE and TIBC, AFSANEH, CBC #### [address] Commemt1 Glu2: Cleaned Meter Normal [facility] Comment on above: Result Comment: PERF ORMED BY: [facility] [address] [place] [address] PATHOLOGIST CERTIFIED MEDICAL TRANSCRIPTIONIST KOBE VENCES M.D. Performed By: #### B MP, MG, FE and TIBC, AFSANEH, CBC #### [address] Glucose [Mass/Vol] 168 mg/dL Normal [facility] Comment on above: Result Comment: [facility] Glucose Reference Range is dependent on time and content of last meal. Glucose of more than 200 mg/dL in a nonstressed, ambulatory subject supports the diagnosis of Diabetes Mellitus. Performed By: #### B MP, MG, FE and TIBC, AFSANEH, CBC #### [address] Iron [Mass/volume] in Serum or PlasmaOrdered By: Gina Poole on 11-19-2022 Iron [Mass/Vol] 28 ug/dL 50-212 [facility] Iron and TIBC Profileon 11-01 0-2022 % Iron Saturation 11.8 % Low 20-50 [facility] Comment on above: Performed By: #### B MP, MG, FE and TIBC, AFSANEH, CBC #### [address] Iron [Mass/Vol] 28 ug/dL Low 50-212 [facility] Comment on above: Performed By: #### B MP, MG, FE and TIBC, AFSANEH, CBC #### [address] Total Iron Binding Capacity 238 ug/dL Low 255-450 [facility] Comment on above: Performed By: #### B MP, MG, FE and TIBC, AFSANEH, CBC #### [facility] [address] [place] [id number] [place] Transferrin [Mass/Vol] 170 mg/dL Low 203-362 [facility] Comment on above: Performed By: #### B MP, MG, FE and TIBC, AFSANEH, CBC #### [facility] [address] [place] [id number] [facility] Iron binding capacity [Mass/ volume] in Serum or PlasmaOrdered By: Gina Poole on 11-19-2022 Iron binding capacity [Mass/Vol] 238 ug/dL 255-450 [facility] Iron saturation [Mass Fracti on] in Serum or PlasmaOrdered By: Gina Poole on 11-19-2022 Iron saturation [Mass fraction] 11.8 % 20-50 [facility] Magnesiumon 11-19-2022 Magnesium [Mass/Vol] 1.5 mg/dL Low 1.9-2.7 [facility] Comment on above: Performed By: #### B MP, MG, FE and TIBC, AFSANEH, CBC #### [facility] [address] [place] [address] [facility] Magnesium [Mass/volume] in S arti or PlasmaOrdered By: Gina Poole on 11-19-2022 Magnesium [Mass/Vol] 1.5 mg/dL 1.9-2.7 [facility] No Panel InformationOrdered By: Gina Poole on 11-19-2022 Bedside Glucose Comment Glu2: cleaned meter [facility] Transferrin [Mass/volume] in Serum or PlasmaOrdered By: Gina Poole on 11-19-2022 Transferrin [Mass/Vol] 170 mg/dL -362 [facility] Troponin I High Sensitivityo n 11-19-2022 Troponin I High Sensitivity 19.6 pg/mL High 0.0-15.0 [facility] Comment on above: Order Comment: ultra sound come back in 10 mins Result Comment: PERF ORMED BY: [place] [address] PATHOLOGIST CERTIFIED MEDICAL TRANSCRIPTIONIST KOBE VENCES M.D. Performed By: #### B MP, MG, FE and TIBC, AFSANEH, CBC #### [facility] [address] [place] [address] [place] Troponin I High Sensitivity 17.3 pg/mL High 0.0-15.0 [facility] Comment on above: Result Comment: PERF ORMED BY: [facility] [address] [place] [address] PATHOLOGIST CERTIFIED MEDICAL TRANSCRIPTIONIST KOBE VENCES M.D. Performed By: #### B MP, MG, FE and TIBC, AFSANEH, CBC #### [facility] [address] Troponin I.cardiac [Mass/vol ume] in Serum or Plasma by Detection limit <= 0.01 ng/Ordered By: Gina Poole on 11-19-2022 Troponin I.cardiac DL <= 0.01 ng/mL [Mass/Vol] 19.6 pg/mL 0.0-15.0 [facility] Activated partial thrombopla stin time (aPTT) in platelet poor plasma by coagulation aOrdered By: Venkatesh Trammell on 11-18-2022 aPTT Coag (PPP) [Time] 35.1 s 25.1-36.5 [facility] Alanine aminotransferase [En zymatic activity/volume] in Serum or PlasmaOrdered By: Venkatesh Trammell on 11-18-2022 ALT [Catalytic activity/Vol] 10 U/L 7-52 [facility] Albumin [Mass/volume] in Ser um or Plasma by Bromocresol green (BCG) dye binding methoOrdered By: Venkatesh Trammell on 11-18-2022 Albumin BCG dye [Mass/Vol] 3.4 g/dL 3.5-5.7 [facility] Alkaline phosphatase [Enzyma tic activity/volume] in Serum or PlasmaOrdered By: Venkatesh Trammell on 11-18-2022 ALP [Catalytic activity/Vol] 54 U/L 34-104 [facility] Aspartate aminotransferase [ Enzymatic activity/volume] in Serum or PlasmaOrdered By: Venkatesh Trammell on 11-18-2022 AST [Catalytic activity/Vol] 15 U/L 13-39 [facility] B-Type Natriuretic Peptideon 11-18-2022 Natriuretic peptide B (Bld) [Mass/Vol] 2080.0 pg/mL High 5-100 [facility] Comment on above: Result Comment: PERF ORMED BY: [place] [address] PATHOLOGIST CERTIFIED MEDICAL TRANSCRIPTIONIST KOBE VENCES M.D. Performed By: #### B MP, MG, FE and TIBC, AFSANEH, CBC #### [facility] [address] Basic Metabolic Panelon 07- Anion gap [Moles/Vol] 10.0 mmol/L Normal 6.0-15.0 [facility] Comment on above: Performed By: #### B MP, MG, FE and TIBC, AFSANEH, CBC #### [facility] [address] Calcium [Mass/Vol] 8.1 mg/dL Low 8.6-10.3 [facility] Comment on above: Performed By: #### B MP, MG, FE and TIBC, AFSANEH, CBC #### [facility] [address] Chloride [Moles/Vol] 101 mmol/L Normal 98-107 [facility] Comment on above: Performed By: #### B MP, MG, FE and TIBC, AFSANEH, CBC #### [address] CO2 [Moles/Vol] 36.2 mmol/L High 21.0-31.0 [facility] Comment on above: Performed By: #### B MP, MG, FE and TIBC, AFSANEH, CBC #### [facility] [address] Creatinine [Mass/Vol] 1.78 mg/dL High 0.60-1.[address] [facility] Comment on above: Performed By: #### B MP, MG, FE and TIBC, AFSANEH, CBC #### [facility] [address] Creatinine Clr Calc Pharmacy 25.51 Normal [facility] Comment on above: Result Comment: PERF ORMED BY: [place] [address] PATHOLOGIST CERTIFIED MEDICAL TRANSCRIPTIONIST KOBE VENCES M.D. Performed By: #### B MP, MG, FE and TIBC, AFSANEH, CBC #### [address] GFR/1.73 sq M.predicted MDRD (S/P/Bld) [Vol rate/Area] 29.779 mL/min/{1.73_m2} Normal [facility] Comment on above: Performed By: #### B MP, MG, FE and TIBC, AFSANEH, CBC #### [address] Glucose [Mass/Vol] 101 mg/dL High 70-100 [facility] Comment on above: Result Comment: [facility] Glucose Reference Range is dependent on time and content of last meal. Glucose of more than 200 mg/dL in a nonstressed, ambulatory subject supports the diagnosis of Diabetes Mellitus. ADA recommended reference range Performed By: #### B MP, MG, FE and TIBC, AFSANEH, CBC #### [address] Potassium [Moles/Vol] 5.2 mmol/L High 3.5-5.[address] [facility] Comment on above: Performed By: #### B MP, MG, FE and TIBC, AFSANEH, CBC #### [address] Sodium [Moles/Vol] 142 mmol/L Normal 136-145 [facility] Comment on above: Performed By: #### B MP, MG, FE and TIBC, AFSANEH, CBC #### [place] [address] [place] Urea nitrogen [Mass/Vol] 29 mg/dL High 7-25 [facility] Comment on above: Performed By: #### B MP, MG, FE and TIBC, AFSANEH, CBC #### [facility] [address] [place] [address] [place] Basophils Auto (Bld) [#/Vol] Ordered By: Venkatesh Trammell on 11-18-2022 Basophils (Bld) [#/Vol] 0.0 10*3/uL 0.0-0.2 [facility] Basophils/100 WBC Auto (Bld) Ordered By: Venkatesh Trammell on 11-18-2022 Basophils/100 WBC (Bld) 0.7 % . [facility] Bilirubin.direct [Mass/volum e] in Serum or PlasmaOrdered By: Venkatesh Trammell on 11-18-2022 Bilirubin.direct [Mass/Vol] 0.10 mg/dL 0.03-0.18 [facility] Bilirubin.total [Mass/volume ] in Serum or PlasmaOrdered By: Venkatesh Trammell on 11-18-2022 Bilirubin [Mass/Vol] 0.4 mg/dL 0.3-1.0 [facility] Calcium [Mass/volume] in Ser um or PlasmaOrdered By: Venkatesh Trammell on 11-18-2022 Calcium [Mass/Vol] 8.1 mg/dL 8.6-10.3 [facility] Carbon dioxide, total [Moles /volume] in Serum or PlasmaOrdered By: Venkatesh Trammell on 11-18-2022 CO2 [Moles/Vol] 36.2 mmol/L 21.0-31.0 [facility] Chloride [Moles/volume] in S arti or PlasmaOrdered By: Venkatesh Trammell on 11-18-2022 Chloride [Moles/Vol] 101 mmol/L 98-107 [facility] Complete Blood Count Auto Di ffon 11-18-2022 Basophils (Bld) [#/Vol] 0.0 10*3/uL Normal 0.0-0.2 [facility] Comment on above: Result Comment: PERF ORMED BY: [facility] [address] [place] [address] PATHOLOGIST CERTIFIED MEDICAL TRANSCRIPTIONIST KOBE VENCES M.D. Performed By: #### B MP, MG, FE and TIBC, AFSANEH, CBC #### [facility] [address] Basophils/100 WBC (Bld) 0.7 % Normal . [facility] Comment on above: Performed By: #### B MP, MG, FE and TIBC, AFSANEH, CBC #### [address] Eosinophils (Bld) [#/Vol] 0.1 10*3/uL Normal 0.0-0.45 [facility] Comment on above: Performed By: #### B MP, MG, FE and TIBC, AFSANEH, CBC #### [address] Eosinophils/100 WBC (Bld) 1.7 % Normal . [facility] Comment on above: Performed By: #### B MP, MG, FE and TIBC, AFSANEH, CBC #### [address] Erythrocyte distribution width (RBC) [Ratio] 15.2 % Normal 11.9-15.3 [facility] Comment on above: Performed By: #### B MP, MG, FE and TIBC, AFSANEH, CBC #### [address] Hematocrit (Bld) [Volume fraction] 26.8 % Low 34.0-46.4 [facility] Comment on above: Performed By: #### B MP, MG, FE and TIBC, AFSANEH, CBC #### [address] Hemoglobin (Bld) [Mass/Vol] 8.7 g/dL Low 11.8-15.4 [facility] Comment on above: Performed By: #### B MP, MG, FE and TIBC, AFSANEH, CBC #### [address] Lymphocytes (Bld) [#/Vol] 1.5 10*3/uL Normal 1.00-4.8 [facility] Comment on above: Performed By: #### B MP, MG, FE and TIBC, AFSANEH, CBC #### [address] Lymphocytes/100 WBC (Bld) 22.5 % Normal . [facility] Comment on above: Performed By: #### B MP, MG, FE and TIBC, AFSANEH, CBC #### [address] MCH (RBC) [Entitic mass] 29.1 pg Normal 24.7-34.3 [facility] Comment on above: Performed By: #### B MP, MG, FE and TIBC, AFSANEH, CBC #### [address] MCV (RBC) [Entitic vol] 89.8 fL Normal 80-100 [facility] Comment on above: Performed By: #### B MP, MG, FE and TIBC, AFSANEH, CBC #### [address] Mean Corpuscular HGB Conc 32.4 g/dL Normal 32.0-35.0 [facility] Comment on above: Performed By: #### B MP, MG, FE and TIBC, AFSANEH, CBC #### [address] Monocytes (Bld) [#/Vol] 0.4 10*3/uL Normal 0.0-0.8 [facility] Comment on above: Performed By: #### B MP, MG, FE and TIBC, AFSANEH, CBC #### [address] Monocytes/100 WBC (Bld) 16.05 % Normal 0.00-20.00 [facility] Comment on above: Performed By: #### B MP, MG, FE and TIBC, AFSANEH, CBC #### [address] Monocytes/100 WBC (Bld) 5.7 % Normal . [facility] Comment on above: Performed By: #### B MP, MG, FE and TIBC, AFSANEH, CBC #### [address] Neutrophils (Bld) [#/Vol] 4.7 10*3/uL Normal 1.8-7.7 [facility] Comment on above: Performed By: #### B MP, MG, FE and TIBC, AFSANEH, CBC #### [address] Neutrophils/100 WBC (Bld) 69.4 % Normal . [facility] Comment on above: Performed By: #### B MP, MG, FE and TIBC, AFSANEH, CBC #### [address] NRBC% 0.0 /100{WBC} Normal 0-0.5 [facility] Comment on above: Performed By: #### B MP, MG, FE and TIBC, AFSANEH, CBC #### [address] Platelet mean volume (Bld) [Entitic vol] 8.2 fL Normal 6.3-10.7 [facility] Comment on above: Performed By: #### B MP, MG, FE and TIBC, AFSANEH, CBC #### [address] Platelets (Bld) [#/Vol] 169 10*3/uL Normal 150-450 [facility] Comment on above: Performed By: #### B MP, MG, FE and TIBC, AFSANEH, CBC #### [address] RBC (Bld) [#/Vol] 2.98 10*6/uL Low 3.60-5.00 [facility] Comment on above: Performed By: #### B MP, MG, FE and TIBC, AFSANEH, CBC #### [address] WBC (Bld) [#/Vol] 6.8 10*3/uL Normal 3.8-11.6 [facility] Comment on above: Performed By: #### B MP, MG, FE and TIBC, AFSANEH, CBC #### [address] Creatine Kinaseon 11-18-2022 CK [Catalytic activity/Vol] 44 U/L Normal 30-223 [facility] Comment on above: Performed By: #### B MP, MG, FE and TIBC, AFSANEH, CBC #### [facility] [address] [place] [address] [place] CK [Catalytic activity/Vol] 46 U/L Normal [facility] Comment on above: Performed By: #### B MP, MG, FE and TIBC, AFSANEH, CBC #### [facility] [address] [place] [address] [place] Creatine kinase [Enzymatic a ctivity/volume] in Serum or PlasmaOrdered By: Gina Poole on 11-18-2022 CK [Catalytic activity/Vol] 44 U/L [facility] Creatinine [Mass/volume] in Serum or PlasmaOrdered By: Venkatesh Trammell on 11-18-2022 Creatinine [Mass/Vol] 1.78 mg/dL 0.60-1.[address] [facility] ECG 12 lead ECGon 11-18-2022 ECG 12 lead ECG [facility] [place] [address] [place] [address] Electrocardiograph Report Signed Patient: Martin Hagen MR#: [id number] 52 : 1950 Acct:[id number] Age/Sex: 71 / F ADM Date: 11/18/22 Loc: Room: [address] [place] [address] Type: ADM IN Attending Dr: Gina Poole [...] ECGs available Confirmed by Venkatesh Trammell DO ([id number]) on 11/19/2022 12:36:06 AM Referred By: Electronically Signed By:Venkatesh Trammell DO Transcribed By: MUS Signed By Venkatesh Trammell DO 3 0036 Normal [facility] Eosinophils Auto (Bld) [#/Vo l]Ordered By: Venkatesh Trammell on 11-18-2022 Eosinophils (Bld) [#/Vol] 0.1 10*3/uL 0.0-0.45 [facility] Eosinophils/100 WBC Auto (Bl d)Ordered By: Venkatesh Trammell on 11-18-2022 Eosinophils/100 WBC (Bld) 1.7 % . [facility] Erythrocyte distribution wid th Auto (RBC) [Ratio]Ordered By: Venkatesh Trammell on 11-18-2022 Erythrocyte distribution width (RBC) [Ratio] 15.2 % 11.9-15.3 [facility] Globulin Calc (S) [Mass/Vol] Ordered By: Venkatesh Trammell on 11-18-2022 Globulin (S) [Mass/Vol] 3.2 g/dL [facility] Glucose [Mass/volume] in Ser um or PlasmaOrdered By: Venkatesh Trammell on 11-18-2022 Glucose [Mass/Vol] 101 mg/dL 70-100 [facility] Comment on above: ADA recommended refe rence rangeRandom Glucose Reference Range is dependent on time and content of last meal. Glucose of more than 200 mg/dL in a nonstressed, ambulatory subject supports the diagnosis of Diabetes Mellitus. Hematocrit Auto (Bld) [Volum e fraction]Ordered By: Venkatesh Trammell on 11-18-2022 Hematocrit (Bld) [Volume fraction] 26.8 % 34.0-46.4 [facility] Hemoglobin [Mass/volume] in BloodOrdered By: Venkatesh Trammell on 11-18-2022 Hemoglobin (Bld) [Mass/Vol] 8.7 g/dL 11.8-15.4 [facility] Hepatic Panelon 11-18-2022 Albumin [Mass/Vol] 3.4 g/dL Low 3.5-5.7 [facility] Comment on above: Performed By: #### H EPATIC #### [facility] [address] [place] [id number] [facility] Albumin/Globulin [Mass ratio] 1.1 {ratio} Normal [facility] Comment on above: Performed By: #### H EPATIC #### [facility] [address] [place] [address] ALP [Catalytic activity/Vol] 54 U/L Normal 34-104 [facility] Comment on above: Result Comment: PERF ORMED BY: [place] [address] PATHOLOGIST CERTIFIED MEDICAL TRANSCRIPTIONIST KOBE VENCES M.D. Performed By: #### H EPATIC #### [address] ALT [Catalytic activity/Vol] 10 U/L Normal 7-52 [facility] Comment on above: Performed By: #### H EPATIC #### [address] AST [Catalytic activity/Vol] 15 U/L Normal 13-39 [facility] Comment on above: Performed By: #### H EPATIC #### [address] Bilirubin [Mass/Vol] 0.4 mg/dL Normal 0.3-1.0 [facility] Comment on above: Performed By: #### H EPATIC #### [address] Bilirubin,Indirect 0.3 mg/dL Normal [facility] Comment on above: Performed By: #### H EPATIC #### [address] Bilirubin.indirect [Mass/Vol] 0.10 mg/dL Normal 0.03-0.18 [facility] Comment on above: Performed By: #### H EPATIC #### [address] Globulin (S) [Mass/Vol] 3.2 g/dL Normal [facility] Comment on above: Performed By: #### H EPATIC #### [address] Protein [Mass/Vol] 6.6 g/dL Normal 6.4-8.9 [facility] Comment on above: Performed By: #### H EPATIC #### [address] [place] [address] [facility] Laboratory - CoagulationOrde red By: Venkatesh Trammell on 11-18-2022 PT Coag (PPP) [Time] 17.6 s 9.0-12.9 [facility] Leukocytes [#/volume] correc loan for nucleated erythrocytes in Blood by Automated counOrdered By: Venkatesh Trammell on 11-18-2022 WBC corrected for nucl RBC Auto (Bld) [#/Vol] 6.8 10*3/uL 3.8-11.6 [facility] Lymphocytes Auto (Bld) [#/Vo l]Ordered By: Venkatesh Trammell on 11-18-2022 Lymphocytes (Bld) [#/Vol] 1.5 10*3/uL 1.00-4.8 [facility] Lymphocytes/100 WBC Auto (Bl d)Ordered By: Venkatesh Trammell on 11-18-2022 Lymphocytes/100 WBC (Bld) 22.5 % . [facility] MCH Auto (RBC) [Entitic mass ]Ordered By: Venkatesh Trammell on 11-18-2022 MCH (RBC) [Entitic mass] 29.1 pg 24.7-34.3 [facility] MCHC Auto (RBC) [Mass/Vol]Or dered By: Venkatesh Trammell on 11-18-2022 MCHC (RBC) [Mass/Vol] 32.4 g/dL 32.0-35.[address] [facility] MCV Auto (RBC) [Entitic vol] Ordered By: Venkatesh Trammell on 11-18-2022 MCV (RBC) [Entitic vol] 89.8 fL 80-100 [facility] Monocyte distribution width [Entitic volume] in Blood by AutomatedOrdered By: Venkatesh Trammell on 11-18-2022 Monocyte distribution width Auto (Bld) [Entitic vol] 16.05 % 0.00-20.00 [facility] Monocytes Auto (Bld) [#/Vol] Ordered By: Venkatesh Trammell on 11-18-2022 Monocytes (Bld) [#/Vol] 0.4 10*3/uL 0.0-0.8 [facility] Monocytes/100 WBC Auto (Bld) Ordered By: Venkatesh Trammell on 11-18-2022 Monocytes/100 WBC (Bld) 5.7 % . [facility] Natriuretic peptide B [Mass/ Vol]Ordered By: Venkatesh Trammell on 11-18-2022 Natriuretic peptide B (Bld) [Mass/Vol] 2080.0 pg/mL 5-100 [facility] Neutrophils Auto (Bld) [#/Vo l]Ordered By: Venkatesh Trammell on 11-18-2022 Neutrophils (Bld) [#/Vol] 4.7 10*3/uL 1.8-7.7 [facility] Neutrophils/100 WBC Auto (Bl d)Ordered By: Venkatesh Trammell on 11-18-2022 Neutrophils/100 WBC (Bld) 69.4 % . [facility] No Panel InformationOrdered By: Venkatesh Trammell on 11-18-2022 Estimated GFR (CKD-EPI) 29.779 mL/Min [facility] Creatinine Clearance (Chem 25.51 [facility] Nucleated erythrocytes [Pres ence] in Blood by Automated countOrdered By: Venkatesh Trammell on 11-18-2022 Nucleated RBC Auto Ql (Bld) 0.0 /100{WBC} 0-0.5 [facility] Partial Thromboplastin Timeo n 11-18-2022 aPTT Coag (Bld) [Time] 35.1 s Normal 25.1-36.5 [facility] Comment on above: Result Comment: PERF ORMED BY: [place] [address] PATHOLOGIST CERTIFIED MEDICAL TRANSCRIPTIONIST KOBE VENCES M.D. Performed By: #### B MP, MG, FE and TIBC, AFSANEH, CBC #### [address] Platelet mean volume Auto (B ld) [Entitic vol]Ordered By: Venkatesh Trammell on 11-18-2022 Platelet mean volume (Bld) [Entitic vol] 8.2 fL 6.3-10.7 [facility] Platelet poor plasma interna tional normalized ratio (INR) by coagulation assay (relatOrdered By: Venkatesh Trammell on 11-18-2022 INR Coag (PPP) [Relative time] 1.5 {INR} [facility] Comment on above: INR Therapeutic Rang [...] 11-18-2022 Platelets (Bld) [#/Vol] 169 10*3/uL 150-450 [facility] Potassium [Moles/volume] in Serum or PlasmaOrdered By: Venkatesh Trammell on 11-18-2022 Potassium [Moles/Vol] 5.2 mmol/L 3.5-5.[address] [facility] Protein [Mass/volume] in Ser um or PlasmaOrdered By: Venkatesh Trammell on 11-18-2022 Protein [Mass/Vol] 6.6 g/dL 6.4-8.9 [facility] Prothrombin Time INRon 11-18 INR Coag (PPP) [Relative time] 1.5 {INR} Normal [facility] Comment on above: Result Comment: INR [...] MG, FE and TIBC, AFSANEH, CBC #### [facility] [address] [place] [address] [place] PT Coag (PPP) [Time] 17.6 s High 9.0-12.9 [facility] Comment on above: Performed By: #### B MP, MG, FE and TIBC, AFSANEH, CBC #### [facility] [address] [place] [address] [place] RBC Auto (Bld) [#/Vol]Ordere d By: Venkatesh Trammell on 11-18-2022 RBC (Bld) [#/Vol] 2.98 10*6/uL 3.60-5.00 [facility] Serum or plasma albumin/glob ulin mass ratioOrdered By: Venkatesh Trammell on 11-18-2022 Albumin/Globulin [Mass ratio] 1.1 {ratio} [facility] Serum or plasma anion gap de terminationOrdered By: Venkatesh Trammell on 11-18-2022 Anion gap [Moles/Vol] 10.0 mmol/L 6.0-15.0 [facility] Serum or plasma non-glucuron idated bilirubin measurement (mass/volume)Ordered By: Venkatesh Trammell on 11-18-2022 Bilirubin.indirect [Mass/Vol] 0.3 mg/dL [facility] Sodium [Moles/volume] in Ser um or PlasmaOrdered By: Venkatesh Trammell on 11-18-2022 Sodium [Moles/Vol] 142 mmol/L 136-145 [facility] Troponin I High Sensitivityo n 11-18-2022 Troponin I High Sensitivity 18.4 pg/mL High 0.0-15.0 [facility] Comment on above: Result Comment: PERF ORMED BY: [place] [address] PATHOLOGIST CERTIFIED MEDICAL TRANSCRIPTIONIST KOBE VENCES M.D. Performed By: #### B MP, MG, FE and TIBC, AFSANEH, CBC #### [facility] [address] [place] [address] [place] Troponin I High Sensitivity 18.0 pg/mL High 0.0-15.0 [facility] Comment on above: Result Comment: PERF ORMED BY: [facility] [address] [place] [address] PATHOLOGIST CERTIFIED MEDICAL TRANSCRIPTIONIST KOBE VENCES M.D. Performed By: #### B MP, MG, FE and TIBC, AFSANEH, CBC #### [facility] [address] [place] [address] [place] Troponin I.cardiac [Mass/vol ume] in Serum or Plasma by Detection limit <= 0.01 ng/Ordered By: Gina Poole on 11-18-2022 Troponin I.cardiac DL <= 0.01 ng/mL [Mass/Vol] 18.4 pg/mL 0.0-15.0 [facility] Urea nitrogen [Mass/volume] in Serum or PlasmaOrdered By: Venkatesh Trammell on 11-18-2022 Urea nitrogen [Mass/Vol] 29 mg/dL 7- [facility] WBC Auto (Bld) [#/Vol]Ordere d By: Venkatesh Trammell on 11-18-2022 WBC (Bld) [#/Vol] 6.8 10*3/uL 3.8-11.6 [facility] XR chest 1V portableon 11-18 XR chest 1V portable [facility] [place] [address] XRay Report Signed Patient: Martin Hagen MR#: [id number] 52 : 1950 Acct:[id number] Age/Sex: 71 / F ADM Date: 11/18/22 [...] Ferreira Jr., D.O.11/18/2022 5:40 PM Dictation Location: [facility]15 Transcribed By: [facility] 11/18/221739 Dictated By: Perez Ferreira Jr, DO 11/18/221738 Signed By: 11/18/221739 Normal [facility] 36on 10-30-2022 36 Milena from [facility] called to make you aware that patient has gained 5lbs since the [employer] increase on 10/27. She said her lungs are clear and diminished. She is not coughing and she is not edematous. Did you want to make any other changes? Please advise. Thanks. Normal [facility] Telephoneon 10-30-2022 Telephone [id number] Maria G Hagen 1950 F Date Provider Department Center 10/30/2022 [facility] Family History Problem Relation Age of Onset Stroke Mother Hypertension Mother Heart attack Father Hypertension Sister Heart attack Sister Heart attack Brother Family Status - Relation Status Age at Mother Father Sister Brother [facility] Office Visiton 10-27-2022 Follow-up visit [id number] Maria G Hagen 1950 F Date Provider Department Center 10/27/2022 [facility] Family History Problem Relation Age of Onset Stroke Mother Hypertension Mother Heart attack Father Hypertension Sister Heart attack Sister Heart attack Brother Family Status - Relation Status Age at Mother Father Sister Brother Level of Service:37068 SD OFFICE/OUTPATIENT ESTABLISHED MOD MDM 30-39 MIN [facility] Office Visiton 09-22-2022 Follow-up visit [id number] Maria G Hagen 1950 F Date Provider Department Center 09/22/2022 [facility] Family History Problem Relation Age of Onset Stroke Mother Hypertension Mother Heart attack Father Hypertension Sister Heart attack Sister Heart attack Brother Family Status - Relation Status Age at Mother Father Sister Brother Level of Service:30582 SD OFFICE/OUTPATIENT ESTABLISHED LOW MDM 20-29 MIN Reason for Visit and Comments: Follow-up [269316] - Event monitor follow up [facility] BNPon 09-08-2022 Natriuretic peptide B (Bld) [Mass/Vol] 35268.0 pg/mL Critically high <=900.0 [facility] Comment on above: Performed By: #### C MP, BNP ####[facility] [address] [place] [address]DrJesse Hernandez CBC AUTO DIFFon 09-08-2022 BASO # 0.0 103/ul Normal 0.0-0.1 [facility] Comment on above: Performed By: #### C BC ####[facility] Mzpj[address]pxepg[address] [place] [id number]. Ivette Hernandez Basophils/100 WBC (Bld) 0.0 % Critically low 0.2-2.0 [facility] Comment on above: Performed By: #### C BC ####[facility] [address] [place], [place] [id number]. Ivette Hernandez EO # 0.0 103/ul Normal 0.0-0.7 [facility] Comment on above: Performed By: #### C BC ####[facility] Tnc[address] [place], [place] [address]Dr. Ivette Hernandez Eosinophils/100 WBC (Bld) 0.0 % Critically low 0.9-7.0 [facility] Comment on above: Performed By: #### C BC ####[facility] Zugeejhqmq[address] [place], [place] [address]Dr. Cherjun Hernandez Erythrocyte distribution width (RBC) [Ratio] 14.0 % Normal 11.0-15.0 [facility] Comment on above: Performed By: #### C BC ####[facility] Lrefbdiabh[address] [place], [place] [address]Dr. Ivette Hernandez Hematocrit (Bld) [Volume fraction] 26.0 % Critically low 36.0-48.0 [facility] Comment on above: Performed By: #### C BC ####[facility] [address]pkhkr[address] [place], [place] [address]Dr. Ivette Hernandez Hemoglobin (Bld) [Mass/Vol] 8.2 g/dL Critically low 12.0-16.0 [facility] Comment on above: Performed By: #### C BC ####[facility] Eoskqqqhlx[address] [place], [place] [address]Dr. Cherjun Hernandez IG # 0.06 10e3/ul Critically high 0.00-0.03 [facility] Comment on above: Performed By: #### C BC ####[facility] Okrtmvqftb[address] [place], [place] [address]Dr. Ivette Hernandez IG % 0.7 % Critically high 0.0-0.5 [facility] Comment on above: Performed By: #### C BC ####[facility] B[address]clzelhn[address] [place] [phone]. Ivette Hernandez LYMPH # 0.7 103/ul Critically low 1.2-3.8 [facility] Comment on above: Performed By: #### C BC ####[facility] Vuxqdqpkzu79[address] [place] [phone]. Ivette Hernandez Lymphocytes/100 WBC (Bld) 8.2 % Critically low 20.5-60.0 [facility] Comment on above: Performed By: #### C BC ####[facility] [address]ciab[address]yb[address] [place] [address]Dr. Ivette Hernandez MANUAL DIFF REQ NO Normal [facility] Comment on above: Performed By: #### C BC ####[facility] Iyuh[address]klrjr35[address] [place] [address]Dr. Ivette Hernandez MCH (RBC) [Entitic mass] 29.4 pg Normal 26.7-34.0 [facility] Comment on above: Performed By: #### C BC ####[facility] Ktwkyicdcr65[address] [place] [phone]. Ivette Hernandez MCHC (RBC) [Mass/Vol] 31.5 g/dL Normal 29.9-35.2 [facility] Comment on above: Performed By: #### C BC ####[facility] Xyanewucwr24[address] [place] [phone]. Ivette Hernandez MCV (RBC) [Entitic vol] 93.2 fL Normal 81.0-99.0 [facility] Comment on above: Performed By: #### C BC ####[facility] Khwsjllwnq4447 [place] [phone]. Ivette Hernandez MONO # 0.3 103/ul Normal 0.3-0.8 [facility] Comment on above: Performed By: #### C BC ####[facility] [address]dtctfb[address] [place] [phone]. Ivette Hernandez Monocytes/100 WBC (Bld) 3.5 % Normal 1.7-12.0 [facility] Comment on above: Performed By: #### C BC ####[facility] Jraenovfzg5787 [place] [phone]. Ivette Hernandez NEUT # 7.6 103/ul Critically high 1.4-6.5 [facility] Comment on above: Performed By: #### C BC ####[facility] Ikfpnxgbvu0770 [place] [phone]. Ivette David Neutrophils/100 WBC (Bld) 87.6 % Critically high 43.0-75.0 [facility] Comment on above: Performed By: #### C BC ####[facility] Ehfimnfapv36[address] [place] [phone]. Ivette David Platelet mean volume (Bld) [Entitic vol] 9.6 fL Normal 9.5-13.5 [facility] Comment on above: Performed By: #### C BC ####[facility] Tt[address] [place] [address]Dr. Ivette David PLT 224 103/ul Normal 150-450 [facility] Comment on above: Performed By: #### C BC ####[facility] Govvlutfnp6135 [place] [phone]. Ivette Hernandez RBC 2.79 106/ul Critically low 4.20-5.40 [facility] Comment on above: Performed By: #### C BC ####[facility] Tdmjxlksdw9991 [place] [phone]. Ivette David WBC 8.7 103/ul Normal 4.0-11.0 [facility] Comment on above: Performed By: #### C BC ####[facility] Jevhnsbzeb1390 [place] [phone] Hernandez PROF 14(COMP METB)on 023 Albumin [Mass/Vol] 2.5 g/dL Critically low 3.4-5.0 [facility] Comment on above: Performed By: #### C MP, BNP ####[facility] Imihpshwgl6984 [place] [phone]. Ivette Hernandez Albumin/Globulin [Mass ratio] 0.6 {ratio} Normal [facility] Comment on above: Performed By: #### C MP, BNP ####[facility] Mslrgurvpb45[address] [place] [address]Dr. Ivette Hernandez ALP [Catalytic activity/Vol] 66 U/L Normal 46-116 [facility] Comment on above: Performed By: #### C MP, BNP ####[facility] Gvnpspijdk7334 [place] [address]Dr. Ivette Hernandez ALT [Catalytic activity/Vol] 20 U/L Normal 14-59 [facility] Comment on above: Performed By: #### C MP, BNP ####[facility] Zvwnrncteo89[address] [place] [address]Dr. Ivette David Anion gap [Moles/Vol] 9.1 mmol/L Normal [facility] Comment on above: Performed By: #### C MP, BNP ####[facility] Qtxxmyhcqa324[address] [place], [place] [address]Dr. Ivette David AST [Catalytic activity/Vol] 11 U/L Critically low 15-37 [facility] Comment on above: Performed By: #### C MP, BNP ####[facility] Rzltzpzjdc[address] [place], [place] [address]Dr. Ivette David Bilirubin [Mass/Vol] 0.4 mg/dL Normal 0.2-1.0 [facility] Comment on above: Performed By: #### C MP, BNP ####[facility] Oolxcfuqvm20[address] [place], [place] [address]Dr. Ivette David Calcium [Mass/Vol] 8.5 mg/dL Normal 8.5-10.1 [facility] Comment on above: Performed By: #### C MP, BNP ####[facility] Fxtiluuzml4[address] [place] [address]Dr. Ivette Hernandez Chloride [Moles/Vol] 103 mmol/L Normal 98-107 [facility] Comment on above: Performed By: #### C MP, BNP ####[facility] Cetsfojgnz2977 [place] [address]Dr. Ivette Hernandez CO2 [Moles/Vol] 37.1 mmol/L Critically high 21.0-32.0 [facility] Comment on above: Performed By: #### C MP, BNP ####[facility] Bcrbovbptx[address] [place], [place] [address]Dr. Ivette Hernandez Creatinine [Mass/Vol] 1.87 mg/dL Critically high 0.55-1.02 [facility] Comment on above: Performed By: #### C MP, BNP ####[facility] Biiolztdvd18[address] [place], [place] [address]Dr. Ivette Hernandez EGFR-AF CROATIAN 32 mL/min/1.73m2 Critically low >=60 [facility] Comment on above: Performed By: #### C MP, BNP ####[facility] Xpumkshppn352[address] [place], [place] [address]Dr. Ivette Hernandez EGFR-NON AF CROATIAN 26 mL/min/1.73m2 Critically low >=60 [facility] Comment on above: Performed By: #### C MP, BNP ####[facility] Yywindgjgt015[address] [place], [place] [address]Dr. Ivette Hernandez Globulin (S) [Mass/Vol] 4.2 g/dL Normal [facility] Comment on above: Performed By: #### C MP, BNP ####[facility] Xdqpkdugkv565[address] [place], [place] [address]Dr. Ivette Hernandez Glucose [Mass/Vol] 196 mg/dL Critically high 74-106 [facility] Comment on above: Performed By: #### C MP, BNP ####[facility] Wbekshkhfn[address] [place], [place] [address]Dr. Ivette Hernandez Potassium [Moles/Vol] 4.2 mmol/L Normal 3.5-5.1 [facility] Comment on above: Performed By: #### C MP, BNP ####[facility] Norpdtajis8034[address] [place], [place] [address]Dr. Ivette Hernandez Protein [Mass/Vol] 6.7 g/dL Normal 6.4-8.2 [facility] Comment on above: Performed By: #### C MP, BNP ####[facility] Tvavnxzuwd14[address] [place], [place] [address]Dr. Ivette Hernandez Sodium [Moles/Vol] 145 mmol/L Normal 136-145 [facility] Comment on above: Performed By: #### C MP, BNP ####[facility] Lkhubztcmd5093[address] [place], [place] [address]Dr. Ivette Hernandez Urea nitrogen [Mass/Vol] 45.0 mg/dL Critically high 7.0-18.0 [facility] Comment on above: Performed By: #### C MP, BNP ####[facility] Dgfkkeqagx6[address] [place], [place] [address]Dr. Ivette Hernandez Urea nitrogen/Creatinine [Mass ratio] 24.1 mg/mg Normal [facility] Comment on above: Performed By: #### C MP, BNP ####[facility] Clitbhmiiz3687[address] [place], [place] [address]Dr. Ivette Hernandez BNPon 09-07-2022 Natriuretic peptide B (Bld) [Mass/Vol] 60267.0 pg/mL Critically high <=900.0 [facility] Comment on above: Performed By: #### C MP, BNP ####[facility] Hpxdemxyvt39[address] [place], [place] [address]Dr. Ivette David CBC AUTO DIFFon 09-07-2022 BASO # 0.0 103/ul Normal 0.0-0.1 [facility] Comment on above: Performed By: #### C BC ####[facility] Aqhkevrddb4[address] [place], [place] [address]Dr. Ivette David Basophils/100 WBC (Bld) 0.1 % Critically low 0.2-2.0 [facility] Comment on above: Performed By: #### C BC ####[facility] Nwcdhqdlmp25[address] [place], [place] [address]Dr. Ivette David EO # 0.0 103/ul Normal 0.0-0.7 [facility] Comment on above: Performed By: #### C BC ####[facility] Zuophjnccf[address] [place], [place] [address]Dr. Cherjun Hernandez Eosinophils/100 WBC (Bld) 0.0 % Critically low 0.9-7.0 [facility] Comment on above: Performed By: #### C BC ####[facility] Qvvunrmoyu8928 [place] [address]Dr. Ivette Hernandez Erythrocyte distribution width (RBC) [Ratio] 13.9 % Normal 11.0-15.0 [facility] Comment on above: Performed By: #### C BC ####[facility] Uxsdseyucv0[address] [place], [place] [address]Dr. Ivette Hernandez Hematocrit (Bld) [Volume fraction] 26.6 % Critically low 36.0-48.0 [facility] Comment on above: Performed By: #### C BC ####[facility] Iphwjglxkg07[address] [place], [place] [address]Dr. Ivette Hernandez Hemoglobin (Bld) [Mass/Vol] 8.3 g/dL Critically low 12.0-16.0 [facility] Comment on above: Performed By: #### C BC ####[facility] Zsddhqidlo[address] [place], [place] [address]Dr. Ivette Hernandez IG # 0.07 10e3/ul Critically high 0.00-0.03 [facility] Comment on above: Performed By: #### C BC ####[facility] Zchqtvtord0[address] [place], [place] [address]Dr. Ivette Hernandez IG % 0.8 % Critically high 0.0-0.5 [facility] Comment on above: Performed By: #### C BC ####[facility] Iuczeusgga[address] [place], [place] [address]Dr. Ivette Hernandez LYMPH # 0.6 103/ul Critically low 1.2-3.8 [facility] Comment on above: Performed By: #### C BC ####[facility] Oionwznsow[address] [place], [place] [address]Dr. Ivette Hernandez Lymphocytes/100 WBC (Bld) 7.2 % Critically low 20.5-60.0 [facility] Comment on above: Performed By: #### C BC ####[facility] Tbqayicroz9113[address] [place], [place] [address]Dr. Ivette Hernandez MANUAL DIFF REQ NO Normal [facility] Comment on above: Performed By: #### C BC ####[facility] Wzusosgurn5558 [place] [phone]. Ivette Hernandez MCH (RBC) [Entitic mass] 29.5 pg Normal 26.7-34.0 [facility] Comment on above: Performed By: #### C BC ####[facility] Gcmwvhezit3991 [place] [id number]. Ivette Hernandez MCHC (RBC) [Mass/Vol] 31.2 g/dL Normal 29.9-35.2 [facility] Comment on above: Performed By: #### C BC ####[facility] Lazsykcplq9[address] [place] [address]Dr. Ivette David MCV (RBC) [Entitic vol] 94.7 fL Normal 81.0-99.0 [facility] Comment on above: Performed By: #### C BC ####[facility] Fqghyasgjg[address] [place], [place] [address]Dr. Cherjun Hernandez MONO # 0.6 103/ul Normal 0.3-0.8 [facility] Comment on above: Performed By: #### C BC ####[facility] Ryxycodoqd[address] [place], [place] [address]Dr. Cherjun Hernandez Monocytes/100 WBC (Bld) 6.8 % Normal 1.7-12.0 [facility] Comment on above: Performed By: #### C BC ####[facility] Vplliibzjn6[address] [place], [place] [address]Dr. Ivette David NEUT # 7.4 103/ul Critically high 1.4-6.5 [facility] Comment on above: Performed By: #### C BC ####[facility] [address]fpqjd[address] [place], [place] [id number] Cherjun Hernandez Neutrophils/100 WBC (Bld) 85.1 % Critically high 43.0-75.0 [facility] Comment on above: Performed By: #### C BC ####[facility] Zlasjjgazi[address] [place], [place] [address]Dr. Cherjun Hernandez Platelet mean volume (Bld) [Entitic vol] 9.5 fL Normal 9.5-13.5 [facility] Comment on above: Performed By: #### C BC ####[facility] Rxdckbqhnr6[address] [place] [phone]. Ivette Hernandez PLT 227 103/ul Normal 150-450 [facility] Comment on above: Performed By: #### C BC ####[facility] Qxqcewgbrt9062 [place] [phone]. Ivette Hernandez RBC 2.81 106/ul Critically low 4.20-5.40 [facility] Comment on above: Performed By: #### C BC ####[facility] Whzkmxnakl8755 [place] [phone]. Ivette Hernandez WBC 8.7 103/ul Normal 4.0-11.0 [facility] Comment on above: Performed By: #### C BC ####[facility] Kgcxwrqijs[address] [place], [place] [address]Dr. Ivette Hernandez BASO # 0.0 103/ul Normal 0.0-0.1 [facility] Comment on above: Performed By: #### C BC ####[facility] Cgkcuutivh2314 [place] [phone]. Ivette Hernandez Basophils/100 WBC (Bld) 0.0 % Critically low 0.2-2.0 [facility] Comment on above: Performed By: #### C BC ####[facility] Mlocctawav0835 [place] [phone]. Ivette Hernandez EO # 0.0 103/ul Normal 0.0-0.7 [facility] Comment on above: Performed By: #### C BC ####[facility] Bzeqjzpbwk8848 [place] [phone]. Ivette Hernandez Eosinophils/100 WBC (Bld) 0.0 % Critically low 0.9-7.0 [facility] Comment on above: Performed By: #### C BC ####[facility] Grqcsyssyx8698 [place] [phone]. Ivette Hernandez Erythrocyte distribution width (RBC) [Ratio] 13.1 % Normal 11.0-15.0 [facility] Comment on above: Performed By: #### C BC ####[facility] Idbkucujhz2106 [place] [address]Dr. Ivette Hernandez Hematocrit (Bld) [Volume fraction] 25.9 % Critically low 36.0-48.0 [facility] Comment on above: Performed By: #### C BC ####[facility] Tlutlwszsi3623 [place] [address]DrJesse Ivette David Hemoglobin (Bld) [Mass/Vol] 8.0 g/dL Critically low 12.0-16.0 [facility] Comment on above: Performed By: #### C BC ####[facility] Gcfwpmnibx[address] [place], [place] [address]DrJesse Hernandez IG # 0.06 10e3/ul Critically high 0.00-0.03 [facility] Comment on above: Performed By: #### C BC ####[facility] Ennnlxbqus9[address] [place], [place] [address]DrJesse Hernandez IG % 1.1 % Critically high 0.0-0.5 [facility] Comment on above: Performed By: #### C BC ####[facility] Ndzqfuvpaj66[address] [place], [place] [address]DrJesse Cherjun Hernandez LYMPH # 0.8 103/ul Critically low 1.2-3.8 [facility] Comment on above: Performed By: #### C BC ####[facility] Imbvbrjkqz7[address] [place], [place] [address]DrJesse Hernandez Lymphocytes/100 WBC (Bld) 14.8 % Critically low 20.5-60.0 [facility] Comment on above: Performed By: #### C BC ####[facility] Gbytdiqtay[address] [place], [place] [address]DrJesse Cherjun Hernandez MANUAL DIFF REQ NO Normal [facility] Comment on above: Performed By: #### C BC ####[facility] Fvcehszqae9[address] [place], [place] [address]DrJesse Hernandez MCH (RBC) [Entitic mass] 29.7 pg Normal 26.7-34.0 [facility] Comment on above: Performed By: #### C BC ####[facility] Soiaqfrras5749 [place] [phone]. Ivette David MCHC (RBC) [Mass/Vol] 30.9 g/dL Normal 29.9-35.2 [facility] Comment on above: Performed By: #### C BC ####[facility] Yucniibfys9555 [place] [phone] Hernandez MCV (RBC) [Entitic vol] 96.3 fL Normal 81.0-99.0 [facility] Comment on above: Performed By: #### C BC ####[facility] Ymwaemwiog3592 [place] [address]DrJesse Hernandez MONO # 0.1 103/ul Critically low 0.3-0.8 [facility] Comment on above: Performed By: #### C BC ####[facility] Owyfhwnijf9[address] [place] [address]Dr. Ivette Hernandez Monocytes/100 WBC (Bld) 2.0 % Normal 1.7-12.0 [facility] Comment on above: Performed By: #### C BC ####[facility] Gkkqdhxeld524[address] [place], [place] [address]Dr. Ivette Hernandez NEUT # 4.5 103/ul Normal 1.4-6.5 [facility] Comment on above: Performed By: #### C BC ####[facility] Yexeylksxb8634[address] [place], [place] [address]DrJesse Hernandez Neutrophils/100 WBC (Bld) 82.1 % Critically high 43.0-75.0 [facility] Comment on above: Performed By: #### C BC ####[facility] [address]tjqktealh[address] [place], [place] [id number] Hernandez Platelet mean volume (Bld) [Entitic vol] 9.4 fL Critically low 9.5-13.5 [facility] Comment on above: Performed By: #### C BC ####[facility] [address] [place], [place] [id number] Hernandez PLT 224 103/ul Normal 150-450 [facility] Comment on above: Performed By: #### C BC ####[facility] [address]iojynhtxt[address] [place] [address]Dr. Ivette Hernandez RBC 2.69 106/ul Critically low 4.20-5.40 [facility] Comment on above: Performed By: #### C BC ####[facility] Brwvxsdnuh[address] [place] [address]Dr. Ivette Hernandez WBC 5.5 103/ul Normal 4.0-11.0 [facility] Comment on above: Performed By: #### C BC ####[facility] Muhwhrnujc[address] [place] [address]Dr. Ivette Hernandez CULTURE SPUTUMon 09-07-2022 CULTURE SPUTUM Isolate 1 Carolee albicans Moderate growth of Normal [facility] Comment on above: Performed By: #### S PUTCX ####[facility] Riawkceqrr[address] [place], [place] [address]Dr. Ivette Hernandez ECHOCARDIO M/2D COMPLETEon 0 09-07-2022 ECHOCARDIO M/2D COMPLETE Normal [facility] PRBC LEUKOREDUCEDon 09-08-19 23 PRBC LEUKOREDUCED Normal [facility] Comment on above: Performed By: #### P RBC ####[facility] Bjjdoxbbkt[address] [place], [place] [address]Dr. Ivette Hernandez PROF 14(COMP METB)on 023 Albumin [Mass/Vol] 2.4 g/dL Critically low 3.4-5.0 [facility] Comment on above: Performed By: #### C MP, BNP ####[facility] Jechwasrbo[address] [place], [place] [address]Dr. Ivette Hernandez Albumin/Globulin [Mass ratio] 0.5 {ratio} Normal [facility] Comment on above: Performed By: #### C MP, BNP ####[facility] Vwpqzqvpkj[address] [place] [address]Dr. Ivette Hernandez ALP [Catalytic activity/Vol] 75 U/L Normal 46-116 [facility] Comment on above: Performed By: #### C MP, BNP ####[facility] Wxzouuekap[address] [place] [address]Dr. Ivette Hernandez ALT [Catalytic activity/Vol] 17 U/L Normal 14-59 [facility] Comment on above: Performed By: #### C MP, BNP ####[facility] Msyhlbzcgq[address] [place], [place] [address]Dr. Ivette Hernandez Anion gap [Moles/Vol] 11.3 mmol/L Normal [facility] Comment on above: Performed By: #### C MP, BNP ####[facility] Opsegwlukb[address] [place], [place] [address]Dr. Ivette Hernandez AST [Catalytic activity/Vol] 15 U/L Normal 15-37 [facility] Comment on above: Performed By: #### C MP, BNP ####[facility] Wekcdmdacz9062[address] [place], [place] [address]Dr. Ivette Hernandez Bilirubin [Mass/Vol] 0.3 mg/dL Normal 0.2-1.0 [facility] Comment on above: Performed By: #### C MP, BNP ####[facility] Wzejmoszvj[address] [place], [place] [address]Dr. Ivette Hernandez Calcium [Mass/Vol] 7.9 mg/dL Critically low 8.5-10.1 [facility] Comment on above: Performed By: #### C MP, BNP ####[facility] Qzizdyuhrl[address] [place], [place] [address]Dr. Ivette Hernandez Chloride [Moles/Vol] 104 mmol/L Normal 98-107 [facility] Comment on above: Performed By: #### C MP, BNP ####[facility] Yuvkeavuwi10[address] [place], [place] [address]Dr. Ivette Hernandez CO2 [Moles/Vol] 33.3 mmol/L Critically high 21.0-32.0 [facility] Comment on above: Performed By: #### C MP, BNP ####[facility] Wmmjcidmwo[address] [place], [place] [address]Dr. Ivette Hernandez Creatinine [Mass/Vol] 1.68 mg/dL Critically high 0.55-1.02 [facility] Comment on above: Performed By: #### C MP, BNP ####[facility] Ydcwdxcpwg8[address] [place] [id number]. Ivette Hernandez EGFR-AF CROATIAN 36 mL/min/1.73m2 Critically low >=60 [facility] Comment on above: Performed By: #### C MP, BNP ####[facility] Pkkdvyrpfs[address] [place] [address]Dr. Ivette Hernandez EGFR-NON AF CROATIAN 30 mL/min/1.73m2 Critically low >=60 [facility] Comment on above: Performed By: #### C MP, BNP ####[facility] Inxfmerdmo59[address] [place], [place] [address]Dr. Ivette Hernandez Globulin (S) [Mass/Vol] 4.5 g/dL Normal [facility] Comment on above: Performed By: #### C MP, BNP ####[facility] Xxxiqoazzb[address] [place], [place] [address]Dr. Ivette Hernandez Glucose [Mass/Vol] 203 mg/dL Critically high 74-106 [facility] Comment on above: Performed By: #### C MP, BNP ####[facility] Ijkjktctzs13[address] [place], [place] [address]Dr. Ivette Hernandez Potassium [Moles/Vol] 4.6 mmol/L Normal 3.5-5.1 [facility] Comment on above: Performed By: #### C MP, BNP ####[facility] Hhaevksnya[address] [place], [place] [address]Dr. Ivette Hernandez Protein [Mass/Vol] 6.9 g/dL Normal 6.4-8.2 [facility] Comment on above: Performed By: #### C MP, BNP ####[facility] Dijsfmydbs4[address] [place], [place] [address]Dr. Ivette Hernandez Sodium [Moles/Vol] 144 mmol/L Normal 136-145 [facility] Comment on above: Performed By: #### C MP, BNP ####[facility] Ajfzilkbez0004[address] [place], [place] [address]Dr. Ivette Hernandez Urea nitrogen [Mass/Vol] 33.0 mg/dL Critically high 7.0-18.0 [facility] Comment on above: Performed By: #### C MP, BNP ####[facility] Wnygfzvyol57[address] [place] [address]Dr. Cherjun David Urea nitrogen/Creatinine [Mass ratio] 19.6 mg/mg Normal [facility] Comment on above: Performed By: #### C MP, BNP ####[facility] Zdterptjkb[address] [place] [address]Dr. Cherjun David SPUTUM GRAM STAINon 09-08-19 COMMENTS Normal [facility] Comment on above: Performed By: #### S PUTGS ####[facility] Duracvnjmy[address] [place], [place] [address]Dr. Ivette Hernandez DIPHTHEROIDS Normal [facility] Comment on above: Performed By: #### S PUTGS ####[facility] Fzxjwqaxrl[address] [place], [place] [address]Dr. Ivette Hernandez EPITHELIALS <25 Normal [facility] Comment on above: Performed By: #### S PUTGS ####[facility] Qqgkiqulnk[address] [place], [place] [address]Dr. Ivette Hernandez FUNGAL ELEMENTS FEW Normal [facility] Comment on above: Performed By: #### S PUTGS ####[facility] Qbvuxcsaid3832[address] [place], [place] [address]Dr. Ivette Hernandez GRAM NEG BACILLI Normal [facility] Comment on above: Performed By: #### S PUTGS ####[facility] Fttuomjvmj[address] [place], [place] [address]Dr. Ivette Hernandez GRAM NEG DIPPLOCOCCI Normal [facility] Comment on above: Performed By: #### S PUTGS ####[facility] Qqbimetmnl[address] [place], [place] [address]Dr. Ivette Hernandez GRAM POS BACILLI Normal [facility] Comment on above: Performed By: #### S PUTGS ####[facility] Pitrtamnmc[address] [place], [place] [address]Dr. Ivette Hernandez GRAM POSITIVE COCCI Normal [facility] Comment on above: Performed By: #### S PUTGS ####[facility] Aqwukhdole[address] [place], [place] [address]Dr. Ivette Hernandez WBC (Bld) [#/Vol] 10*3/uL Normal [facility] Comment on above: Performed By: #### S PUTGS ####[facility] Ettvfhwljy[address] [place] [address]Dr. Ivette Hernandez TYPE AND SCREENon 09-07-2022 TYPE AND SCREEN Negative Normal [facility] Comment on above: Performed By: #### T NS ####[facility] Ihjfthkxqs62[address] [place] [address]Dr. Ivette Hernandez BNPon 09-06-2022 Natriuretic peptide B (Bld) [Mass/Vol] 65882.0 pg/mL Critically high <=900.0 [facility] Comment on above: Performed By: #### B OPERATIONS LEAD, HSTROPN, LIPA, CMP ####[facility] Isnwnsncww35[address] [place] [address]Dr. Ivette Hernandez CARDIAC CANDACE ADMITon 023 CK [Catalytic activity/Vol] 73 U/L Normal 26-192 [facility] Comment on above: Performed By: #### C MADM, MG ####[facility] Ogsfzqkkef[address] [place] [address]Dr. Ivette Hernandez CK.MB [Mass/Vol] 1.68 ng/mL Normal <=3.60 [facility] Comment on above: Performed By: #### C MADM, MG ####[facility] Waqaqrztwg4[address] [place] [address]Dr. Ivette Hernandez HSTROP 14.7 pg/mL Normal 4.0-51.3 [facility] Comment on above: Result Comment: CUT- OFF POINTS HAVE BEEN ESTABLISHED BASED ON THE FOURTH UNIVERSAL DEFINITIONS OF MYOCARDIALINFARCTION. THE UPPER REFERENCE LIMIT (URL) OF TROPONIN, DEFINED THE 99TH PERCENTILE OFcTnI DISTRIBUTION IN A REFERENCE POPULATION, HAS BEEN CONFIRMED THE DECISION THRESHOLDFOR SD DIAGNOSIS. Performed By: #### C MADM, MG ####[facility] Nzflzjjppx4[address] [place] [address]Dr. Ivette Hernandez CARMITA 151 ng/mL Critically high 9-82 [facility] Comment on above: Performed By: #### C MADM, MG ####[facility] Ufturfnltc35[address] [place] [id number]. Ivette Hernandez CBC AUTO DIFFon 09-06-2022 BASO # 0.0 103/ul Normal 0.0-0.1 [facility] Comment on above: Performed By: #### C BC ####[facility] Encgjdpmay9[address] [place] [address]Dr. Ivette David Basophils/100 WBC (Bld) 0.4 % Normal 0.2-2.0 [facility] Comment on above: Performed By: #### C BC ####[facility] Rzzobkprbt[address] [place], [place] [address]Dr. Ivette David EO # 0.1 103/ul Normal 0.0-0.7 [facility] Comment on above: Performed By: #### C BC ####[facility] Cbgypkrcfq9212[address] [place], [place] [address]Dr. Cherjun Hernandez Eosinophils/100 WBC (Bld) 1.5 % Normal 0.9-7.0 [facility] Comment on above: Performed By: #### C BC ####[facility] Qflpcimesm03[address] [place], [place] [address]Dr. Ivette Hernandez Erythrocyte distribution width (RBC) [Ratio] 13.1 % Normal 11.0-15.0 [facility] Comment on above: Performed By: #### C BC ####[facility] Kukcucwmkq216[address] [place], [place] [address]Dr. Ivette Hernandez Hematocrit (Bld) [Volume fraction] 26.8 % Critically low 36.0-48.0 [facility] Comment on above: Performed By: #### C BC ####[facility] Twwdrvssig264[address] [place], [place] [address]Dr. Ivette Hernandez Hemoglobin (Bld) [Mass/Vol] 8.4 g/dL Critically low 12.0-16.0 [facility] Comment on above: Performed By: #### C BC ####[facility] Hzqaiipsjb7807[address] [place], [place] [address]Dr. Ivette Hernandez IG # 0.05 10e3/ul Critically high 0.00-0.03 [facility] Comment on above: Performed By: #### C BC ####[facility] Sqrtcgrtum40[address] [place] [address]DrJesse Ivette Hernandez IG % 0.5 % Normal 0.0-0.5 [facility] Comment on above: Performed By: #### C BC ####[facility] Aliamobjzv[address] [place], [place] [address]DrJesse Ivette David LYMPH # 1.6 103/ul Normal 1.2-3.8 [facility] Comment on above: Performed By: #### C BC ####[facility] Qfgetsjjjb7315[address] [place], [place] [address]DrJesse Ivette David Lymphocytes/100 WBC (Bld) 17.1 % Critically low 20.5-60.0 [facility] Comment on above: Performed By: #### C BC ####[facility] Tnlfepuwps[address] [place], [place] [address]DrJesse Cherjun Hernandez MANUAL DIFF REQ NO Normal [facility] Comment on above: Performed By: #### C BC ####[facility] Mbxedaaroo[address] [place], [place] [address]DrJesse Ivette David MCH (RBC) [Entitic mass] 30.1 pg Normal 26.7-34.0 [facility] Comment on above: Performed By: #### C BC ####[facility] Smxpnfxbzu[address] [place], [place] [address]DrJesse Ivette David MCHC (RBC) [Mass/Vol] 31.3 g/dL Normal 29.9-35.2 [facility] Comment on above: Performed By: #### C BC ####[facility] Foilzqurdq7[address] [place], [place] [address]DrJesse Ivette David MCV (RBC) [Entitic vol] 96.1 fL Normal 81.0-99.0 [facility] Comment on above: Performed By: #### C BC ####[facility] Sqrjsfonwm[address] [place], [place] [address]DrJesse Hernandez MONO # 0.5 103/ul Normal 0.3-0.8 [facility] Comment on above: Performed By: #### C BC ####[facility] Ytlxjvzmhq7[address] [place] [address]Dr. Ivette Hernandez Monocytes/100 WBC (Bld) 5.3 % Normal 1.7-12.0 [facility] Comment on above: Performed By: #### C BC ####[facility] Cmsceixlio6[address] [place] [id number]. Ivette Hernandez NEUT # 7.0 103/ul Critically high 1.4-6.5 [facility] Comment on above: Performed By: #### C BC ####[facility] Ksowsorabx119[address] [place] [address]Dr. Ivette Hernandez Neutrophils/100 WBC (Bld) 75.2 % Critically high 43.0-75.0 [facility] Comment on above: Performed By: #### C BC ####[facility] Xetenwplok15[address] [place] [address]Dr. Ivette Hernandez Platelet mean volume (Bld) [Entitic vol] 9.5 fL Normal 9.5-13.5 [facility] Comment on above: Performed By: #### C BC ####[facility] Dphhyupzuw18[address] [place] [address]Dr. Ivette Hernandez PLT 257 103/ul Normal 150-450 [facility] Comment on above: Performed By: #### C BC ####[facility] Aschxgtgre94[address] [place] [address]Dr. Ivette Hernandez RBC 2.79 106/ul Critically low 4.20-5.40 [facility] Comment on above: Performed By: #### C BC ####[facility] Dvxwwxkozn9499 [place] [id number]. Ivette Hernandez WBC 9.3 103/ul Normal 4.0-11.0 [facility] Comment on above: Performed By: #### C BC ####[facility] Ucwqjmhvzo27[address] [place] [id number]. Ivette Hernandez CULTURE BLOODon 09-06-2022 Microscopic examination of blood, culture Culture Observations: NO GROWTH AT 5 DAYS. Normal [facility] Comment on above: Performed By: #### B LDCX2 ####[facility] Iyrtyyvmtc[address] [place] [address]Dr. Ivette Hernandez Microscopic examination of blood, culture Culture Observations: NO GROWTH AT 5 DAYS. Normal [facility] Comment on above: Performed By: #### B LDCX1 ####[facility] Yyburrsreg4315 [place] [id number]. Ivette Hernandez CULTURE URINEon 09-06-2022 CULTURE URINE Culture Observations : LIGHT GROWTH OF MIXED GENITAL BOB. NO POTENTIAL PATHOGENS SEEN. Normal [facility] Comment on above: Performed By: #### U RCX ####[facility] Lpzvsjgids[address] [place], [place] [address]Dr. Ivette Hernandez Covid-19 PCR (CVDTB)on SARS-CoV-2 (COVID-19) RNA MARRY+probe Ql (Unsp spec) Not detected Normal NOT DETECTED [facility] Comment on above: Result Comment: This test is not yet approved or cleared by the [place] FDA. When there are no FDA-approved or cleared tests available, and other criteria are met, FDA can make tests available under an emergency access mechanism called an Emergency Use Authorization (EUA). The EUA for this test is supported by the [employer] of Health and Human Service's [...] with SARS-CoV-2. Performed By: #### C VDTBH ####[facility] Rxfhbkiihh8648 [place] [id number]. Ivette Hernandez LACTATE/LACTIC ACIDon 2022 Lactate [Moles/Vol] 0.6 mmol/L Normal 0.4-2.0 [facility] Comment on above: Performed By: #### L ACT ####[facility] Uzyqagfaaa34[address] [place] [address]Dr. Ivette Hernandez Lactate [Moles/Vol] 0.8 mmol/L Normal 0.4-2.0 [facility] Comment on above: Performed By: #### L ACT ####[facility] Rzevzgndwv7[address] [place] [address]Dr. Ivette Hernandez LIPASEon 09-06-2022 Lipase [Catalytic activity/Vol] 157.0 U/L Normal 73.0-393.0 [facility] Comment on above: Performed By: #### B OPERATIONS LEAD, HSTROPN, LIPA, CMP ####[facility] Zywddjguke4[address] [place], [place] [address]Dr. Ivette Hernandez MAGNESIUMon 09-06-2022 Magnesium [Mass/Vol] 1.6 mg/dL Critically low 1.8-2.4 [facility] Comment on above: Performed By: #### C MADM, MG ####[facility] Hdsydebdsx[address] [place], [place] [address]Dr. Ivette Hernandez PROF 14(COMP METB)on 023 Albumin [Mass/Vol] 2.5 g/dL Critically low 3.4-5.0 [facility] Comment on above: Performed By: #### B OPERATIONS LEAD, HSTROPN, LIPA, CMP ####[facility] Pxedsuokzk7[address] [place], [place] [address]Dr. Ivette Hernandez Albumin/Globulin [Mass ratio] 0.5 {ratio} Normal [facility] Comment on above: Performed By: #### B OPERATIONS LEAD, HSTROPN, LIPA, CMP ####[facility] Fylkvbkayk[address] [place], [place] [address]Dr. Ivette Hernandez ALP [Catalytic activity/Vol] 85 U/L Normal 46-116 [facility] Comment on above: Performed By: #### B OPERATIONS LEAD, HSTROPN, LIPA, CMP ####[facility] Pqunefieuv[address] [place], [place] [address]Dr. Ivette Hernandez ALT [Catalytic activity/Vol] 18 U/L Normal 14-59 [facility] Comment on above: Performed By: #### B OPERATIONS LEAD, HSTROPN, LIPA, CMP ####[facility] Bpwwnwxzew[address] [place] [address]Dr. Ivette Hernandez Anion gap [Moles/Vol] 9.1 mmol/L Normal [facility] Comment on above: Performed By: #### B OPERATIONS LEAD, HSTROPN, LIPA, CMP ####[facility] Rvaoobwjdv90[address] [place] [address]Dr. Ivette Hernandez AST [Catalytic activity/Vol] 18 U/L Normal 15-37 [facility] Comment on above: Performed By: #### B OPERATIONS LEAD, HSTROPN, LIPA, CMP ####[facility] Laijtrcauj[address] [place] [address]Dr. Ivette Hernandez Bilirubin [Mass/Vol] 0.5 mg/dL Normal 0.2-1.0 [facility] Comment on above: Performed By: #### B OPERATIONS LEAD, HSTROPN, LIPA, CMP ####[facility] Btogxqlhtr95[address] [place] [address]Dr. Ivette Hernandez Calcium [Mass/Vol] 7.8 mg/dL Critically low 8.5-10.1 [facility] Comment on above: Performed By: #### B OPERATIONS LEAD, HSTROPN, LIPA, CMP ####[facility] Mhqhtmwrim[address] [place] [address]Dr. Ivette Hernandez Chloride [Moles/Vol] 103 mmol/L Normal 98-107 [facility] Comment on above: Performed By: #### B OPERATIONS LEAD, HSTROPN, LIPA, CMP ####[facility] Rssnahuujt17[address] [place] [address]Dr. Ivette Hernandez CO2 [Moles/Vol] 32.8 mmol/L Critically high 21.0-32.0 [facility] Comment on above: Performed By: #### B OPERATIONS LEAD, HSTROPN, LIPA, CMP ####[facility] Otjppxovhw39[address] [place], [place] [address]Dr. Ivette Hernandez Creatinine [Mass/Vol] 1.79 mg/dL Critically high 0.55-1.02 [facility] Comment on above: Performed By: #### B OPERATIONS LEAD, HSTROPN, LIPA, CMP ####[facility] Wvszckknqy22[address] [place] [address]Dr. Ivette Hernandez EGFR-AF CROATIAN 34 mL/min/1.73m2 Critically low >=60 [facility] Comment on above: Performed By: #### B OPERATIONS LEAD, HSTROPN, LIPA, CMP ####[facility] Mhpydlzgqq9685 [place] [address]Dr. Ivette Hernandez EGFR-NON AF CROATIAN 28 mL/min/1.73m2 Critically low >=60 [facility] Comment on above: Performed By: #### B OPERATIONS LEAD, HSTROPN, LIPA, CMP ####[facility] Tongjkqaqi9[address] [place], [place] [address]Dr. Ivette Hernandez Globulin (S) [Mass/Vol] 4.6 g/dL Normal [facility] Comment on above: Performed By: #### B OPERATIONS LEAD, HSTROPN, LIPA, CMP ####[facility] Wjtjbqgder84[address] [place] [address]Dr. Ivette Hernandez Glucose [Mass/Vol] 170 mg/dL Critically high 74-106 [facility] Comment on above: Performed By: #### B OPERATIONS LEAD, HSTROPN, LIPA, CMP ####[facility] Yybluieofq65[address] [place], [place] [address]Dr. Ivette Hernandez Potassium [Moles/Vol] 3.9 mmol/L Normal 3.5-5.1 [facility] Comment on above: Performed By: #### B OPERATIONS LEAD, HSTROPN, LIPA, CMP ####[facility] Lytdxmhqby658[address] [place], [place] [address]Dr. Ivette Hernandez Protein [Mass/Vol] 7.1 g/dL Normal 6.4-8.2 [facility] Comment on above: Performed By: #### B OPERATIONS LEAD, HSTROPN, LIPA, CMP ####[facility] Xjnfnrqsat5108 [place] [address]Dr. Ivette Hernandez Sodium [Moles/Vol] 141 mmol/L Normal 136-145 [facility] Comment on above: Performed By: #### B OPERATIONS LEAD, JAX GARRIDO, CMP ####[facility] Ufacqrqsgx[address] [place] [address]Dr. Ivette Hernandez Urea nitrogen [Mass/Vol] 31.0 mg/dL Critically high 7.0-18.0 [facility] Comment on above: Performed By: #### B OPERATIONS LEAD, RADHATROPSanjeev LIPA, CMP ####[facility] Anqduqpmqn37[address] [place] [address]Dr. Ivette Hernandez Urea nitrogen/Creatinine [Mass ratio] 17.3 mg/mg Normal [facility] Comment on above: Performed By: #### B OPERATIONS LEAD, SCOTTIE GARRIDOA, CMP ####[facility] Yawpscffkv9[address] [place], [place] [address]Dr. Ivette Hernandez PROTIMEon 09-06-2022 INR Coag (PPP) [Relative time] 1.13 {INR} Normal [facility] Comment on above: Performed By: #### P TT, PT ####[facility] Xgramwvbwn1956[address] [place], [place] [address]Dr. Ivette Hernandez INR GUIDELINES SEE BELOW Normal [facility] Comment on above: Result Comment: MELANIE RED INR: 2.0 - 3.0 CONDITIONS NOT LISTED BELOW 2.5 - 3.5 FOR PROSTHETIC HEART VALVE REPLACEMENT 2.5 - 3.5 RECURRENT THROMBOSIS Performed By: #### P TT, PT ####[facility] Cnqqngkdjv[address] [place], [place] [address]Dr. Ivette Hernandez PT Coag (PPP) [Time] 11.9 s Critically high 9.0-11.6 [facility] Comment on above: Performed By: #### P TT, PT ####[facility] Gcrutqlrgq[address] [place], [place] [address]Dr. Ivette Hernandez PTTon 09-06-2022 aPTT Coag (Bld) [Time] 29.6 s Normal 22.3-36.2 [facility] Comment on above: Performed By: #### P TT, PT ####[facility] Xqexkigzln74[address] [place] [id number]. Ivette Hernandez SYMPTOMATIC COVID-19 ANTIGEN on 09-06-2022 EUA Statement SEE BELOW Normal [facility] Comment on above: Result Comment: This test [...] revoked sooner. Performed By: #### C VDAGS ####[facility] [address] [place] [id number]. Ivette Hernandez SARS-CoV-2 (COVID-19) RNA MARRY+probe Ql (Unsp spec) Negative Normal NEGATIVE [facility] Comment on above: Performed By: #### C VDAGS ####[facility] [address] [place] [phone]. Ivette Hernandez TROPONIN, HIGH SENSITIVITYon 09-06-2022 HSTROP 13.1 pg/mL Normal 4.0-51.3 [facility] Comment on above: Result Comment: CUT- OFF POINTS HAVE BEEN ESTABLISHED BASED ON THE FOURTH UNIVERSAL DEFINITIONS OF MYOCARDIALINFARCTION. THE UPPER REFERENCE LIMIT (URL) OF TROPONIN, DEFINED THE 99TH PERCENTILE OFcTnI DISTRIBUTION IN A REFERENCE POPULATION, HAS BEEN CONFIRMED THE DECISION THRESHOLDFOR SD DIAGNOSIS. Performed By: #### B OPERATIONS LEAD, HSTROPN, LIPA, CMP ####[facility] [address] [place] [phone]. Ivette Hernandez UA RANDOM W/MICROSCOPICon BACTERIA SMALL Abnormal NONE SEEN [facility] Comment on above: Performed By: #### U AMIC ####[facility] Qwtobicbpl[address] [place], [place] [address]Dr. Cherjun David Bilirubin Ql (U) Negative Normal NEGATIVE [facility] Comment on above: Performed By: #### U AMIC ####[facility] [address] [place] [address]Dr. Ivette Hernandez CAST NONE SEEN Normal NONE SEEN [facility] Comment on above: Performed By: #### U AMIC ####[facility] [address] [place], [place] [address]Dr. Ivette Hernandez Clarity (U) CLEAR Normal CLEAR [facility] Comment on above: Performed By: #### U AMIC ####[facility] Xsolpqeqte[address] [place], [place] [address]Dr. Ivette Hernandez Color (U) LT. YELLOW Normal YELLOW [facility] Comment on above: Performed By: #### U AMIC ####[facility] [address]frtd[address] [place], [place] [address]Dr. Ivette Hernandez Crystals LM Nom (Urine sed) NONE SEEN Normal NONE SEEN [facility] Comment on above: Performed By: #### U AMIC ####[facility] F[address]kn[address]pcsir[address] [place], [place] [address]Dr. Ivette Hernandez Epithelial cells LM Ql (Urine sed) FEW Abnormal NONE SEEN /RARE [facility] Comment on above: Performed By: #### U AMIC ####[facility] Znklnuquus[address] [place], [place] [address]Dr. Ivette Hernandez Glucose Ql (U) Negative Normal NEGATIVE [facility] Comment on above: Performed By: #### U AMIC ####[facility] Jaktpoebsu[address] [place], [place] [address]Dr. Ivette Hernandez Hemoglobin Ql (U) SMALL Abnormal NEGATIVE [facility] Comment on above: Performed By: #### U AMIC ####[facility] Hjpuvhljqy[address] [place], [place] [address]Dr. Ivette Hernandez Ketones Ql (U) Negative Normal NEGATIVE [facility] Comment on above: Performed By: #### U AMIC ####[facility] [address] [place] [address]Dr. Ivette Hernandez LEUKOCYTES TRACE Abnormal NEGATIVE [facility] Comment on above: Performed By: #### U AMIC ####[facility] [address]kekgtf[address] [place] [address]Dr. Ivette Hernandez MUCOUS NONE SEEN Normal NONE SEEN [facility] Comment on above: Performed By: #### U AMIC ####[facility] Kw[address]rdy[address] [place], [place] [address]Dr. Ivette Hernandez Nitrite Ql (U) Negative Normal NEGATIVE [facility] Comment on above: Performed By: #### U AMIC ####[facility] Rbiyndtqnx[address] [place], [place] [address]Dr. Ivette Hernandez pH (U) 7.5 [pH] Normal 5-9 [facility] Comment on above: Performed By: #### U AMIC ####[facility] [address]ivfnzbi[address] [place], [place] [address]Dr. Ivette Hernandez RBC 0-2 Normal 0-2 [facility] Comment on above: Performed By: #### U AMIC ####[facility] Toiocvdmrz[address] [place], [place] [address]Dr. Ivette David SPEC GRAVITY 1.020 Normal 1.005-<=1.025 [facility] Comment on above: Performed By: #### U AMIC ####[facility] [address]zbxcskuv[address] [place], [place] [address]Dr. Ivette Hernandez UA PROTEIN 300 mg/dl Abnormal NEGATIVE/ TRACE [facility] Comment on above: Performed By: #### U AMIC ####[facility] [address]kmz[address] [place], [place] [address]Dr. Ivette Hernandez Urobilinogen Qn (U) 0.2 {Mack'U}/dL Normal 0.2 - 1. 0 [facility] Comment on above: Performed By: #### U AMIC ####[facility] [address]vcw[address] [place], [place] [address]Dr. Ivette Hernandez WBC 5-10 Abnormal NONE SEEN [facility] Comment on above: Performed By: #### U [facility] ####[facility] Miglbcbtqq4754 [place], [place] [address]Gt. Ivette Hernandez XR CHEST 1 Von 09-06-2022 XR CHEST 1 V Normal [facility] Patient Educationon 07-30-19 Patient Education Nutrition Calorie [...] You could (more content not included)... Normal [facility] Urology Office/Clinic Noteon 07-29-2022 Urology Office/Clinic [...] outlet re (more content not included)... Normal [facility] Comment on above: Result Comment: Elec [...] XIE, Jacqui Nieves Where: [facility] Nurse Consultation Noteon Nurse Consultation Note Reason [...] 07/29/22 to review labs & PVR Normal [facility] PROF CHEM 8 (BAS METB)on Anion gap [Moles/Vol] 12.3 mmol/L Normal [facility] Comment on above: Performed By: #### B MP ####[facility] [address] [place] [address]Dr. Ivette Hernandez Calcium [Mass/Vol] 9.4 mg/dL Normal 8.5-10.1 [facility] Comment on above: Performed By: #### B MP ####[facility] Ubidazisum[address] [place], [place] [address]Dr. Ivette Hernandez Chloride [Moles/Vol] 105 mmol/L Normal 98-107 [facility] Comment on above: Performed By: #### B MP ####[facility] K[address]xaiwuk[address] [place], [place] [address]Dr. Ivette Hernandez CO2 [Moles/Vol] 30.2 mmol/L Normal 21.0-32.0 [facility] Comment on above: Performed By: #### B MP ####[facility] [address]fr[address] [place] [address]Dr. Ivette Hernandez Creatinine [Mass/Vol] 2.66 mg/dL Critically high 0.55-1.02 [facility] Comment on above: Performed By: #### B MP ####[facility] Ohlbnkhqrg[address] [place], [place] [address]Dr. Ivette Hernandez EGFR-AF CROATIAN 21 mL/min/1.73m2 Critically low >=60 [facility] Comment on above: Performed By: #### B MP ####[facility] [address]ery[address] [place] [address]Dr. Ivette Hernandez EGFR-NON AF CROATIAN 18 mL/min/1.73m2 Critically low >=60 [facility] Comment on above: Performed By: #### B MP ####[facility] [address] [place] [address]Dr. Ivette Hernandez Glucose [Mass/Vol] 126 mg/dL Critically high 74-106 [facility] Comment on above: Performed By: #### B MP ####[facility] [address]lpsu[address] [place] [address]Dr. Ivette Hernandez Potassium [Moles/Vol] 4.5 mmol/L Normal 3.5-5.1 [facility] Comment on above: Performed By: #### B MP ####[facility] [address] [place] [address]Dr. Ivette Hernandez Sodium [Moles/Vol] 143 mmol/L Normal 136-145 [facility] Comment on above: Performed By: #### B MP ####[facility] [address]iaqmr[address] [place] [address]Dr. Ivette Hernandez Urea nitrogen [Mass/Vol] 55.0 mg/dL Critically high 7.0-18.0 [facility] Comment on above: Performed By: #### B MP ####[facility] Hzahbsbeaq16[address] [place] [address]Dr. Ivette Hernandez Urea nitrogen/Creatinine [Mass ratio] 20.7 mg/mg Normal [facility] Comment on above: Performed By: #### B MP ####[facility] [address] [place] [address]Dr. Ivette Hernandez Office Visiton 07-06-2022 Follow-up visit [id number] Maria G Hagen 1950 F Date Provider Department Center 07/06/2022 SILVA COOK [facility] Family History Problem Relation Age of Onset Stroke Mother Hypertension Mother Heart attack Father Hypertension Sister Heart attack Sister Heart attack Brother Family Status - Relation Status Age at Mother Father Sister Brother Level of Service:18881 SD OFFICE/OUTPATIENT ESTABLISHED MOD MDM 30-39 MIN Reason for Visit and Comments: Congestive Heart Failure [127] Atrial Fibrillation [80] Normal [facility] Lab Reportson 06-24-2022 Lab Reports [id number]#[id number] 0CD:[address] [facility] METANEPHRINES PLASMA FREEon 06-24-2022 Metanephrine, Pl 16.5 pg/mL Normal 0.0-88.0 [facility] Comment on above: Performed By: #### M ETANPF ####[facility] Upiasnyhyj[address] [place] [address]Dr. Ivette Hernandez Normetanephrine, Pl 67.2 pg/mL Normal 0.0-285.2 [facility] Comment on above: Performed By: #### M ETANPF ####[facility] [address] [place], [place] [address]Dr. Ivette Hernandez Lab Reportson 06-23-2022 Lab Reports [id number] 0CD:[address] [facility] ALDOSTERONE: RENIN RATIOon 0 06-20-2022 Aldos/Renin Ratio 12.0 Normal 0.0-30.0 [facility] Comment on above: Result Comment: Unit s: ng/dL per ng/mL/hr Performed By: #### A LDOREN ####[facility] [address]vxmkug[address] [place], [place] [address]Dr. Ivette Hernandez Aldosterone 3.8 ng/dL Normal 0.0-30.0 [facility] Comment on above: Performed By: #### A LDOREN ####[facility] Xzorlusvor[address] [place], [place] [address]DrJesse Hernandez Renin Activity, Plasma 0.316 ng/mL/hr Normal 0.167-5.380 [facility] Comment on above: Performed By: #### A LDOREN ####[facility] Wzkeyvzcwl[address] [place], [place] [address]DrJesse Hernandez CORTISOLon 06-16-2022 Cortisol 2.7 ug/dL Normal [facility] Comment on above: Result Comment: Too isol AM 6.2 - 19.4 Cortisol PM 2.3 - 11.9 Performed By: #### C [facility] ####[place] [address]DrJesse Ivette David Coding Summary.on 06-15-2022 Coding Summary. CD:[id number] Gh 0bWw+PGhlYWQ+KD3NPPNqB 94pmSSqzI9DM8nAAD5NRRU DKHRWWV1UDI6dgRE3OZhmP 2VybiAv JwbngRLtSJ79QQt5VOY6eX xjLHmedF8huKCpH8f7XvRn OE50uH53NXuvWUYuIyT1Lw ZpbjsgbWFy T4yaFfUzeLByOps+PHRhYm xlIHdpZHRoPScxMDAlJyBz rFsiRE4gCh6wDRPuJAAhaA xhcHNlOiBj o0hiWEXrHKxrEO4xlOclZ8 CguPC3FOOvn3u4Bb78rKA+ NGAgCUG7xHqnQAnvu516Ei Den8odEMB9 eHIsSWxoEAH3A73il4P6JJ QfMSWwGHQ9qNW5vK1kuTgf bovlX9YvlBBjMhV4EMP4sE IkcH9haTnm ebamsG5xQnf+X78MDY2MUN EIIC1BKxp2F7PyOvbetXA+ LN92JDYrKQ70oYZzlVWew3 dubEd7CaUu WDKqBRO8bYbxDRsif5CxJR NyN15yyIKow7F5GPTnnItv zNInBaIxxSO7rL7cTVpaqz ucd6pnsllp Pqixd2gwze22wC81S75pHG mqUHEgLYX3DTPiMXWzyQxh hh4ceK5tYf9+SVkjg4cxz0 aszMu1YnEp MPVclgTjhRcvVUN3o4TjPa 82L3NabFhlj4IwVnx4ly62 qKGxb1K5lQI5TUzfJOLwwS 8lLAznJsI5 JSZfEqOtcB84wXYbJIosQb 3tsPjutHgrPE6wWIKnslon HUFnoA1tHZTfjGGriSbmPO 4wNTBpbjtm m906SiTvYAL5AEFxlACtD4 JdqF8jYmQxTFGtYREiM4Dd qWFkASgpT717BEyhFuK0LF PdkoTxB0Rb CCImyUaoFbS7k6E8Sk7Es6 WgigrdWBJ9FMuaEXBvJrMa RuPoMeW2S1UsGbj9BUZdjH moWR3vK2Ev UBSwwrxghuipuEE9UZLxIP AjlC19tVQlOUdrOq1ok0K0 x621CQWcOGDbyO66Wj0laH ogMTBwdCBU xC3iocebv3xylwbtVdZnHM MbZKy9SDe4RWGuqIoqZbQl XQW4LiL7WSE6wAMcpZ4bjF lgauvisV3h Oyc+Y09yoP0dQEX5HHK6py ddYLZaqdKpCF60CA35F0Vx PjwvdGFibGU+PGRpdiBzdH byWT6bOwJq g0lkx9AlPFbzO5HxLMAzCP gvThx9IQMwXWQ1dGB1fB4d MJNiMFpag8G3uNN3J8Lnhn Trvg2ar0ru TXZqGScuS42jnTEum8D7XI SaeVC0UOHxwRvnPvNsyP91 Oyc+FEUgsRvdq0YkIqnkw0 jpu0leuWr3 OkOePHRyixBizXfkOOF1c2 YnGq30A49kBKnvGOAyLNAh TRFmTXWbqBftfu1owO6uHn 8+PGNvbCB3 fHN0oW8xTMJrWdW2XHkyU1 68DzMreQMnAxlxr6cqi1av mGw8FjHwSFOixxNjtGnyYY S8f2IpVx77 G38mFYyxFFJnVYCaBLUjWR EjpMlebw0ieP1wYx8+PC9j f7mmif23jM47jTS+PHRkIH R6fLovXHvn BIPjjW2kDCkaMtA7OKMhLu MxeS03xCGgCNlfCg5daPzn wBjrKW1gLSMffoyxn755Iz Kzi1ymRFEh kFWmTBduQQZ0V56io8V3QP MqMERjKTR4yAX5jL1xjGxk bjogbGVmdDsgdmVydGljYW rhTKqeC860 IHRvcDsnPlBhdGllbnQgTm ElPOh5P4XuYmr8LNBamUns EH7csOTgGDzfUh9fnOzqoE nlIG8nOQMi htdgc500VaEoo6ieFGKkxC JsMLjrVQT3P18es8W4RHPk EBCrONK2iPA3sK1eeIcdhr ogbGVmdDsg bxWdzMkaWCvlDOujX999YH RvcDsnPkJpcnRoIERhdGU6 DT70XK59dKNvr2V1xCE9D9 BhZGRpbmct vbtjsZN9BZBiVBFvfN18Ao 4wgZmzGl6wUZXjREH8YLDq nUDkE6FwdA3jIsTvSFUfLH WcJ7YlaJWy QDatU134RTkfLxQ5DLFpme UeG9SfNRZhyNriCtL4w3G7 Pd0BP0P0VS22QF78cLJwv4 E6eYR4D0Le DWIblnydgoulpLR4FIBrAB CppC78Rb8noSqdYy5yZGDm MAJ9JMTdkZWjA8KjoE1mKn AjMDAwMDAw I6AklHCmCOwbR630JPghDk W3MZXldgLzH0WrYOFtaNhw JwB5l7X3Xa1KMHr6ZI36GV 47bDZut1I2 cSU8I9HmENBiinmktakxxY V1QVOwYYVrdO84Df5xwXmz Bp2iVRVaMQV7FCMzdRRzZ3 RzeD2cPsLd WRMiIYDdP9OftIUeSHpfY5 81MMreMhM3AQWrayXvU9Zf LPRixCgqNmE9n7Q6Qy5TGY HtFB39PPI0 kJA9OH27NM12G9KsQmtofH FibGU+PHRhYmxlIHdpZHRo BTsvOEAyIsBglPerBZ3hEx 9yZGVyLWNv vTehrPThYqQzq0vyFESaVW koJL0vrPwpS4NcbEW4RNLq j6k4Qc90K16eG0OhsXR+PG SvnVV7uSY8 pU4qVtRlWoU9SSocZ053Ei LviSDrTfknm7bdj8zzjIr0 AwX5NLLwyaPwjTbuOAH9v2 KuIi64P07o IHdpZHRoPSIxNSUiIHZhbG imgc4cdJ4iHh9+PGNvbCB3 uZZ1dW7rWuDmAhN0GLoeI7 49InRvcCIv Ildtb4tjh1fwcAq2IcGqSI IrliDhjZbaLZR5n7KfHv31 M4CavXsql9SwMzy0qk29fF Cdq5Y3pWO6 B4ZdIKSoqmvumUSzvZwuCU 5oZFJvrlugKJDtiA4vMFBh T3f9CuGaPfQ8UTecV3Tcct N9YDYhiQHt XTpfHKZ9H03ea6J7OFSpMZ NlZCM2tQO9sB3mnJmgcynv bGVmdDsgdmVydGljYWwtYW rtF794VLCc tVogBAPfgP4bDHAdoKMliS ljMC6iEPRbqnldCoEJP7uX JFTtNZHSAlC1K4ZfQli1BC PjeIgzTO6w uRMfGJlaEn9zuPvafVjqPZ 7uYJWvucfgEKKvfM7iJFKl wZPkeVboGA9xUQDmrsppo1 33PdIiMHZ9 NRWhxFChM4EipW2lSfBjIY YfQKOqF7IriMNkGAjfZ614 SYywPjY4ZTVykuOiW1AxCZ FsaWduOiB0 j5Q8Vh5sVO7aZl3zCGH8FY 05DT47eKTka8C4wYI3V7Bi ZWWaahbeaytfyRS9NLKbQN ZhpZ56bHYw TCykYw3pr5R8z031SVAtTV DslO01Vx3ciUpgRKZkbDNT oA0jkqogz2rznfcpLaIfPL HqXNu3EUa4 AYLbwAxbXwYdBUK5HgN5BW F4pKGhkH8qaSojkxhdlS7v Oyc+PrYfRORansT6S4NxCh a7WIEivHwo GV8pxEUnFGlfZn6imLbgeX dvAR6yPMZrfskqBVMlrS9m ORIdwLOprHqxPF7jGUGknn ruz358MiRk TAI3JBGtyZHaP0TrtG3hKd QoWNCeWFTmD4JdsHUbNWlo M351NZpjJxT6XHNlgkLxY8 FsLWFsaWdu KvO4o3E1Hl8FTZ2usCA8M5 ClRjq3CYIjoNzcMF0snVOu UMryGs9hxVubpTutRN5rKC BpbjtwYWRk pI4uFEOfxMPclGbqMS1mRJ Yjdlncg523PqRcUYC7LWNx kFOeZ1UekA6rRsRxVFSfBE OuQ4BciUJc IMqrM284HCkeNsG8FIMwls NdS4XjMDDutZmyFvD1r9U7 Fw8EPGMlRRVroRJdWfS3T2 RkPjwvdHI+ AE39CBLvWU56pFEbqRUku0 ilaHp9JpFzTMKtRLH5uDtg YIqnc8ZlJEYuE20rcULes2 U3YEDmrEuk nMLaRfHtgJM6sN7dVTymnu csf1ddbkdbYakam4znmp27 xS81P42hEGivBHUpGUQrLX UiIHZhbGln fv2naU1uNj1+FXFmmEU3eH W9kB6pPfRdAdX6EEchW643 WgFarAKoWokwf2jqq9kkiJ d3MzVtDVOp cgWzjDkrRXC4z5FtOw47B0 9sIHdpZHRoPSIyMCUiIHZh wUqvvz7ijP2rMn5+PC9jb2 flhu51zK03 dHI+AMNmVXZ4iGvwSAxvKC FzeD7pCMggHgC3KFWiRuSw jY11jSOtODnpXu2ayEbdoA oxZQ1wREVl xarwj905QqDls6tmQWUyqR LoBJayYHL8D95ho8V8OAYm UIRiRWY1wYY3pB2jvBlohh ogbGVmdDsg msVzwLleYYpiVIhkB397UQ YvlYuuKdRhnUBiQ9vwgvBQ HB1jZviqbEV+ZZGzBVC3cJ xlPSdwYWRk iP7vOVYhC3d0ZrZaStO9LA faS3DikjD9SEQtwPPpLUGd xNYFgV7pxinyn8lxootzLj AwMDAwMDt0 TPk4YBTptNbrAkUwIAT4Rd A3OYZ8jDTqwX2deSzfcqii vX8pDya+RklOOjwvdGQ+PH YmRGU4dYti KGoiHUVguV3tGEXgZ0v4Qa MuSbA0EYfnB9OftfU3ANCh wACdTNZfkBDHrL2jhnbth4 xvcjogIzAw SHLdRPk1XYg0YECooEtpId DwBUO1UnJ8NMZ5wKHmwJ1w iTgcwfkblC0xKuc+TVJOOj wvdGQ+PHRk SBT7wPaoIFzuFHFjnK1eNG YeT0r5IcZcBfS7ABmnL4Js kzU3AWWniCEaSPEgeSKXjB 7hljmta6on irlfVvPmYQFaFLn0GDh4CM WrrKucTpUxGWT9YlG0JVS4 gXQevN1vkPiyriktaO7jOg c+WOU4WCX9 VY97MS05O3LlEhkonCYnaF U+PHRhYmxlIHdpZHRoPScx KWVvUoXreWjsJK6eHx9cWJ VyLWNvbGxh cHNl (more content not included)... Normal [facility] C Urineon 06-13-2022 Bacteria identified Cx [...] Locations R1: This test was performed at: [facility], [address] [place] [address], [phone] , , [facility] Comment on above: Performed By: #### 2 [id number] #### [facility] [address] [place] [address] Ambulatory Visit Summaryon 0 06-10-2022 Ambulatory Visit Summary MARTIN HAGEN :1950 Visit Date:06/10/2022 Ambulatory Visit Instructions Your Diagnosis Microhematuria Adrenal mass Renal cyst Urinary retention with incomplete bladder emptying Tests Performed Urnls Dip Stick Auto w/o Microscopy POC 62500 Your Care Team Attending Physician - Alec [...] AM EST With: Where: [facility] [address] [place] [address]- \.br\ You Need to Schedule the Following Appointments\.br \ Follow Up with Alec XIE, Jacqui Nieves, ARIANNEL, URO When: \.br\ Where:\.br\ Medications\.br\ What How Much When Why Instructions\.br \ New dexamethasone (dexamethasone 1 mg oral tablet) 1 Tablets By Mouth Once Adrenal mass take at 11pm. complete cortisol level at 8am. Pickup at [facility] 6047\.br\ Unchanged cephalexin (Keflex 500 mg Cap) 1 [...] if questions or concerns \.br\ Pharmacy Information\.br\ [facility] 1429: [address] [place], [place] [id number] [phone]\.br\ Test Results\.br\ Urnls Dip Stick Auto w/o Microscopy POC 81089 (06/10/2022)\.br \ Bilirubin Urine Dipstick - Negative\.br\ Blood Urine Dipstick - 3+ Large\.br\ Glucose Urine Dipstick - Negative\.br\ Ketones Urine Dipstick - Negative\.br\ Leukocytes Urine Dipstick - 3+ Large\.br\ Nitrite Urine Dipstick - Negative\.br\ Protein Urine Dipstick - 2+ (100 mg/dl)\.br\ Specific [place] Urine Dipstick - 1.020\.br\ Urine Appearance Urine [...] instructions at home:\.br\ Medicines\.br\ ? \.br\ Take vqhm-hsu-svmkokj and prescription medicines only as told by [...] ? \.br\ Avoid caffeine, tea, and Quesada [facility] Patient Educationon 06-10-19 Patient Education Urology Hematuria, [...] these instructions at home: Medicines ? Take ylew-mqf-atggfrt and prescription medicines only as told by [...] the blood stops without treatment. ? Take cxfc-kwg-hhswedi and prescription medicines only as told by your health care provider. ? Drink enough fluid to keep your urine clear or pale yellow. This information is not intended to replace advice given to you by your health care provider. Make sure you discuss any questions you have with your health care provider. Document Released: 04/19/2006 Document Revised: 09/13/2019 Document Reviewed: 05/22/2017 [employer] Patient Education ? 2019 [employer] Normal [facility] URINALYSISOrdered By: Iwona suárez on 06-10-2022 [...] PM) Normal Negative [facility] UA Auto SS [place].plasma/Lithiu m.RBC (Bld) [Mass ratio] 4-20 /HPF Normal [...] [facility] UA Auto SS Urobilinogen Qn (U) 0.4156300 {Mack'U}/dL Normal 0.0 - 1.0 EU/dL [facility] UA Auto SS WBC Auto Ql (U) 2+ *ABN* (06/10/22 12:20 PM) Invalid Interpretation Code Negative [facility] UA Auto SS WBC LM.HPF (Urine sed) [#/Area] /[HPF] Invalid Interpretation Code 0-5/HPF [facility] UA Auto SS Urinalysison 06-10-2022 Bacteria LM Ql (Urine sed) 2+ /HPF Abnormal Trace [facility] Comment on above: Performed By: #### 1 [id number] ####[facility] [address] [place] [address] Bilirubin Ql (U) Negative Normal Negative [facility] Comment on above: Performed By: #### 1 [id number] ####[address] [address] Clarity (U) CLOUDY Abnormal Clear [facility] Comment on above: Performed By: #### 1 [id number] ####[facility] [address] [place] [address] Color (U) YELLOW Normal Yellow [facility] Comment on above: Performed By: #### 1 [id number] ####[facility] [address] [place] [address] Crystals LM Ql (Urine sed) Present Normal [facility] Comment on above: Performed By: #### 1 [id number] ####[facility] [address] [place] [address] Epithelial cells.squamous LM.HPF (Urine sed) [#/Area] 3-4 Normal 0-2 [facility] Comment on above: Performed By: #### 1 [id number] ####[facility] [address] [place] [address] Glucose Test strip (U) [Mass/Vol] Negative Normal Negative [facility] Comment on above: Performed By: #### 1 [id number] ####[facility] [address] [place] [address] Hemoglobin Ql (U) 3+ Abnormal Negative [facility] Comment on above: Performed By: #### 1 [id number] ####[facility] [address] [place] [address] Ketones (U) [Mass/Vol] Negative Normal Negative [facility] Comment on above: Performed By: #### 1 [id number] ####[address] [address] [place].plasma/Lithiu m.RBC (Bld) [Mass ratio] 4-20 Normal 0-3 [facility] Comment on above: Performed By: #### 1 [id number] ####[address] [place] [address] Mucus Ql (Urine sed) TRACE Normal [facility] Comment on above: Performed By: #### 1 [id number] ####[address] [address] Nitrite Ql (U) Negative Normal Negative [facility] Comment on above: Performed By: #### 1 [id number] ####[address] [address] pH (U) 5.5 [pH] Invalid Interpretation Code 5.0-9.0 [facility] Comment on above: Performed By: #### 1 [id number] ####[address] [address] Protein (U) [Mass/Vol] 1+ Abnormal Negative [facility] Comment on above: Performed By: #### 1 [id number] ####[address] [address] Specific gravity (U) [Rel density] 1.020 Invalid Interpretation Code 1.005-1.030 [facility] Comment on above: Performed By: #### 1 [id number] ####[address] [address] Type of Urine collection method Random Urine Normal [facility] Comment on above: Performed By: #### 1 [id number] ####[address] [address] Urobilinogen Qn (U) 0.2 {Mack'U}/dL Normal 0.0-1.0 [facility] Comment on above: Performed By: #### 1 [id number] ####[facility] [address] [place] [address] WBC Auto Ql (U) 2+ Abnormal Negative [facility] Comment on above: Performed By: #### 1 [id number] ####[facility] [address] [place] [address] WBC LM.HPF (Urine sed) [#/Area] /[HPF] Abnormal 0-5 [facility] Comment on above: Performed By: #### 1 [id number] ####[facility] [address] [place] [address] Urology Office/Clinic Noteon 06-10-2022 Urology Office/Clinic Note [...] in uncontroll (more content not included)... Normal [facility] Comment on above: Result Comment: Elec tronically Signed By: Jacqui Michael MD\.br\Date and Time Signed: 06/10/22 17:35 EST\.br\Electronically Co-Signed By: Marissa Denson\.br\Date and Time Co-Signed: 06/10/22 10:[address] ABD/PELV W CONon 05-06-19 CT ABD/PELV W CON Normal [facility] CREATININEon 05-05-2022 Creatinine [Mass/Vol] 1.49 mg/dL Critically high 0.55-1.02 [facility] Comment on above: Performed By: #### C BENITA ####[facility] [address] [place] [address]Dr. Ivette Hernandez EGFR-AF CROATIAN 42 mL/min/1.73m2 Critically low >=60 [facility] Comment on above: Performed By: #### C BENITA ####[facility] [address] [place], [place] [address]Dr. Ivette Hernandez EGFR-NON AF CROATIAN 34 mL/min/1.73m2 Critically low >=60 [facility] Comment on above: Performed By: #### C BENITA ####[facility] [address] [address] [place], [place] [address]Dr. Ivette Hernandez PROF CHEM 8 (BAS METB)on Anion gap [Moles/Vol] 12.6 mmol/L Normal [facility] Comment on above: Performed By: #### B MP ####[facility] Smdtrhnocz[address] [place], [place] [address]Dr. Ivette Hernandez Calcium [Mass/Vol] 8.0 mg/dL Critically low 8.5-10.1 [facility] Comment on above: Performed By: #### B MP ####[facility] Nzjzivdnmw[address] [place], [place] [address]Dr. Ivette Hernandez Chloride [Moles/Vol] 103 mmol/L Normal 98-107 [facility] Comment on above: Performed By: #### B MP ####[facility] Rbqflrkszf[address] [place], [place] [address]Dr. Ivette Hernandez CO2 [Moles/Vol] 28.7 mmol/L Normal 21.0-32.0 [facility] Comment on above: Performed By: #### B MP ####[facility] Lfhgojayav317[address] [place], [place] [address]Dr. Ivette Hernandez Creatinine [Mass/Vol] 1.54 mg/dL Critically high 0.55-1.02 [facility] Comment on above: Performed By: #### B MP ####[facility] Fylldqcaya[address] [place], [place] [address]Dr. Ivette Hernandez EGFR-AF CROATIAN 40 mL/min/1.73m2 Critically low >=60 [facility] Comment on above: Performed By: #### B MP ####[facility] [address]tr[address] [place] [address]Dr. Ivette Hernandez EGFR-NON AF CROATIAN 33 mL/min/1.73m2 Critically low >=60 [facility] Comment on above: Performed By: #### B MP ####[facility] Fmknbpumfe60[address] [place] [address]Dr. Ivette Hernandez Glucose [Mass/Vol] 126 mg/dL Critically high 74-106 [facility] Comment on above: Performed By: #### B MP ####[facility] Ajsufwljed5[address] [place] [address]Dr. Ivette Hernandez Potassium [Moles/Vol] 3.3 mmol/L Critically low 3.5-5.1 [facility] Comment on above: Performed By: #### B MP ####[facility] Mjwkmoktwz[address] [place], [place] [address]Dr. Ivette Hernandez Sodium [Moles/Vol] 141 mmol/L Normal 136-145 [facility] Comment on above: Performed By: #### B MP ####[facility] Xpsnicsdro327[address] [place], [place] [address]Dr. Ivette Hernandez Urea nitrogen [Mass/Vol] 21.0 mg/dL Critically high 7.0-18.0 [facility] Comment on above: Performed By: #### B MP ####[facility] Kntpjdqzar39[address] [place], [place] [address]Dr. Ivette Hernandez Urea nitrogen/Creatinine [Mass ratio] 13.6 mg/mg Normal [facility] Comment on above: Performed By: #### B MP ####[facility] Oboqcxmdme20[address] [place], [place] [address]Dr. Ivette Hernandez CBC AUTO DIFFon 04-13-2022 BASO # 0.0 103/ul Normal 0.0-0.1 [facility] Comment on above: Performed By: #### C BC ####[facility] Ziuqvebvaa1899[address] [place], [place] [address]Dr. Ivette Hernandez Basophils/100 WBC (Bld) 0.3 % Normal 0.2-2.0 [facility] Comment on above: Performed By: #### C BC ####[facility] Mkqhyscamj4[address] [place] [address]Dr. Ivette Hernandez EO # 0.3 103/ul Normal 0.0-0.7 [facility] Comment on above: Performed By: #### C BC ####[facility] Xtymnedngg8926[address] [place], [place] [address]Dr. Cherjun Hernandez Eosinophils/100 WBC (Bld) 4.3 % Normal 0.9-7.0 [facility] Comment on above: Performed By: #### C BC ####[facility] Tgtywcunzt388[address] [place], [place] [address]Dr. Cherjun Hernandez Erythrocyte distribution width (RBC) [Ratio] 14.2 % Normal 11.0-15.0 [facility] Comment on above: Performed By: #### C BC ####[facility] Hnhlbkrhaf8100[address] [place], [place] [address]Dr. Cherjun Hernandez Hematocrit (Bld) [Volume fraction] 26.2 % Critically low 36.0-48.0 [facility] Comment on above: Performed By: #### C BC ####[facility] Sqtvwliyru268[address] [place], [place] [address]Dr. Ivette Hernandez Hemoglobin (Bld) [Mass/Vol] 8.0 g/dL Critically low 12.0-16.0 [facility] Comment on above: Performed By: #### C BC ####[facility] Bfrjeuwyxf1182[address] [place], [place] [address]Dr. Cherjun Hernandez IG # 0.03 10e3/ul Normal 0.00-0.03 [facility] Comment on above: Performed By: #### C BC ####[facility] Avoghcclvf7584[address] [place], [place] [address]Dr. Cherjun Hernandez IG % 0.5 % Normal 0.0-0.5 [facility] Comment on above: Performed By: #### C BC ####[facility] Svvijqcfcu[address] [place], [place] [address]DrJesse Hernandez LYMPH # 2.2 103/ul Normal 1.2-3.8 [facility] Comment on above: Performed By: #### C BC ####[facility] Qbcdofsrjf7001 [place] [id number]. Ivette Hernandez Lymphocytes/100 WBC (Bld) 35.5 % Normal 20.5-60.0 [facility] Comment on above: Performed By: #### C BC ####[facility] Izcpedjufd9845 [place] [id number]. Ivette Hernandez MANUAL DIFF REQ NO Normal [facility] Comment on above: Performed By: #### C BC ####[facility] Hwqokxopmx3483 [place] [id number]. Ivette Hernandez MCH (RBC) [Entitic mass] 28.0 pg Normal 26.7-34.0 [facility] Comment on above: Performed By: #### C BC ####[facility] Tsbsstagbo2365[address] [place], [place] [address]Dr. Ivette Hernandez MCHC (RBC) [Mass/Vol] 30.5 g/dL Normal 29.9-35.2 [facility] Comment on above: Performed By: #### C BC ####[facility] Gurgaocxve316[address] [place], [place] [address]Dr. Ivette Hernandez MCV (RBC) [Entitic vol] 91.6 fL Normal 81.0-99.0 [facility] Comment on above: Performed By: #### C BC ####[facility] Pvfqiayvec3894[address] [place], [place] [address]Dr. Ivette Hernandez MONO # 0.5 103/ul Normal 0.3-0.8 [facility] Comment on above: Performed By: #### C BC ####[facility] Suedliymhy[address] [place], [place] [id number]. Ivette Hernandez Monocytes/100 WBC (Bld) 8.2 % Normal 1.7-12.0 [facility] Comment on above: Performed By: #### C BC ####[facility] Evbkadvmww75[address] [place], [place] [id number] Hernandez NEUT # 3.2 103/ul Normal 1.4-6.5 [facility] Comment on above: Performed By: #### C BC ####[facility] Dghwsppltl8733 [place], [place] [address]Tp. Ivette Hernandez Neutrophils/100 WBC (Bld) 51.2 % Normal 43.0-75.0 [facility] Comment on above: Performed By: #### C BC ####[facility] Fvsnmhjgzd2547 [place], [place] [address]Kr. Ivette Hernadnez Platelet mean volume (Bld) [Entitic vol] 9.8 fL Normal 9.5-13.5 [facility] Comment on above: Performed By: #### C BC ####[facility] Lykrukwhnj6413 [place], [place] [address]Uj. Ivette Hernandez PLT 168 103/ul Normal 150-450 [facility] Comment on above: Performed By: #### C BC ####[facility] Rwabcyaoyb3915 [place], [place] [address]Lx. Ivette Hernandez RBC 2.86 106/ul Critically low 4.20-5.40 [facility] Comment on above: Performed By: #### C BC ####[facility] Cwdrpxirjg3469 [place], [place] [address]Nx. Ivette Hernandez WBC 6.2 103/ul Normal 4.0-11.0 [facility] Comment on above: Performed By: #### C BC ####[facility] Rwhlnvksno[address] [place] [id number]. Ivette Hernandez Office Visiton 04-13-2022 Follow-up visit [id number] Maria G Hagen 1950 F Date Provider Department Center 04/13/2022 MADI MITCHELL [facility] Family History Problem Relation Age of Onset Stroke Mother Hypertension Mother Heart attack Father Hypertension Sister Heart attack Sister Heart attack Brother Family Status - Relation Status Age at Mother Father Sister Brother Level of Service:80625 SD OFFICE/OUTPATIENT ESTABLISHED MOD MDM 30-39 MIN Reason for Visit and Comments: Congestive Heart Failure [127] Atrial Fibrillation [80] Normal [facility] POINT OF CARE GLUCOSEon 04-02 Glucose [Mass/Vol] 140 mg/dL Critically high 74-106 [facility] Comment on above: Performed By: #### P OCGLUC ####[facility] Vfxgnnhgqq397[address] [place], [place] [address]Dr. Ivette Hernandez PROF CHEM 8 (BAS METB)on Anion gap [Moles/Vol] 7.9 mmol/L Normal [facility] Comment on above: Performed By: #### B MP ####[facility] Nbucxdsdow9[address] [place], [place] [address]Dr. Ivette Hernandez Calcium [Mass/Vol] 7.9 mg/dL Critically low 8.5-10.1 [facility] Comment on above: Performed By: #### B MP ####[facility] Jkaqdxdhgb2006[address] [place], [place] [address]Dr. Ivette Hernandez Chloride [Moles/Vol] 106 mmol/L Normal 98-107 [facility] Comment on above: Performed By: #### B MP ####[facility] Vjrtldfhxe6926[address] [place], [place] [address]Dr. Ivette Hernandez CO2 [Moles/Vol] 32.0 mmol/L Normal 21.0-32.0 [facility] Comment on above: Performed By: #### B MP ####[facility] Akknjghmvn098[address] [place], [place] [address]Dr. Ivette Hernandez Creatinine [Mass/Vol] 1.67 mg/dL Critically high 0.55-1.02 [facility] Comment on above: Performed By: #### B MP ####[facility] Aaiwktutdv409[address] [place], [place] [address]Dr. Ivette Hernandez EGFR-AF CROATIAN 36 mL/min/1.73m2 Critically low >=60 [facility] Comment on above: Performed By: #### B MP ####[facility] Jvtbhkdzoc1144[address] [place], [place] [address]Dr. Ivette Hernandez EGFR-NON AF CROATIAN 30 mL/min/1.73m2 Critically low >=60 [facility] Comment on above: Performed By: #### B MP ####[facility] Txbzimcqvc33[address] [place], [place] [address]Dr. Ivette David Glucose [Mass/Vol] 91 mg/dL Normal 74-106 [facility] Comment on above: Performed By: #### B MP ####[facility] Fvsklhfbfq6174[address] [place], [place] [address]Dr. Ivette Hernandez Potassium [Moles/Vol] 3.9 mmol/L Normal 3.5-5.1 [facility] Comment on above: Performed By: #### B MP ####[facility] Scarlxjbtf42[address] [place], [place] [address]Dr. Ivette David Sodium [Moles/Vol] 142 mmol/L Normal 136-145 [facility] Comment on above: Performed By: #### B MP ####[facility] Aehoiunomx4077[address] [place], [place] [address]Dr. Ivette David Urea nitrogen [Mass/Vol] 26.0 mg/dL Critically high 7.0-18.0 [facility] Comment on above: Performed By: #### B MP ####[facility] Jwyxaqvlxs1528[address] [place], [place] [address]Dr. Cherjun David Urea nitrogen/Creatinine [Mass ratio] 15.6 mg/mg Normal [facility] Comment on above: Performed By: #### B MP ####[facility] Xdwsnuhiwt437[address] [place], [place] [address]Dr. Ivette David CBC AUTO DIFFon 04-12-2022 BASO # 0.0 103/ul Normal 0.0-0.1 [facility] Comment on above: Performed By: #### C BC ####[facility] Vdcfgqbfei33[address] [place], [place] [address]Dr. Ivette Hernandez Basophils/100 WBC (Bld) 0.5 % Normal 0.2-2.0 [facility] Comment on above: Performed By: #### C BC ####[facility] Iwdwoeiyvn27[address] [place], [place] [address]Dr. Ivette Hernandez EO # 0.3 103/ul Normal 0.0-0.7 [facility] Comment on above: Performed By: #### C BC ####[facility] Cujyahofba6037[address] [place], [place] [address]Dr. Ivette Hernandez Eosinophils/100 WBC (Bld) 4.4 % Normal 0.9-7.0 [facility] Comment on above: Performed By: #### C BC ####[facility] Bqyofpnxiz8[address] [place] [address]Dr. Ivette Hernandez Erythrocyte distribution width (RBC) [Ratio] 14.2 % Normal 11.0-15.0 [facility] Comment on above: Performed By: #### C BC ####[facility] Jykkzcnrdc8648 [place] [address]Dr. Ivette Hernandez Hematocrit (Bld) [Volume fraction] 25.9 % Critically low 36.0-48.0 [facility] Comment on above: Performed By: #### C BC ####[facility] Fogsiupaqn49[address] [place], [place] [address]Dr. Ivette Hernandez Hemoglobin (Bld) [Mass/Vol] 8.0 g/dL Critically low 12.0-16.0 [facility] Comment on above: Performed By: #### C BC ####[facility] Bcngpyvdcy00[address] [place], [place] [address]Dr. Ivette Hernandez IG # 0.03 10e3/ul Normal 0.00-0.03 [facility] Comment on above: Performed By: #### C BC ####[facility] Qaczkiqkvj967[address] [place], [place] [address]Dr. Ivette Hernandez IG % 0.5 % Normal 0.0-0.5 [facility] Comment on above: Performed By: #### C BC ####[facility] Lkrvmtarpe3[address] [place], [place] [address]Dr. Ivette Hernandez LYMPH # 2.1 103/ul Normal 1.2-3.8 [facility] Comment on above: Performed By: #### C BC ####[facility] Elnjxttfig2977[address] [place], [place] [address]Dr. Ivette Hernandez Lymphocytes/100 WBC (Bld) 35.0 % Normal 20.5-60.0 [facility] Comment on above: Performed By: #### C BC ####[facility] Lmdduorqcc3[address] [place] [address]Dr. Ivette David MANUAL DIFF REQ NO Normal [facility] Comment on above: Performed By: #### C BC ####[facility] Wwxbuxodge88[address] [place] [address]Dr. Ivette David MCH (RBC) [Entitic mass] 28.3 pg Normal 26.7-34.0 [facility] Comment on above: Performed By: #### C BC ####[facility] Vfbsdgetzi9482 [place] [address]Dr. Ivette David MCHC (RBC) [Mass/Vol] 30.9 g/dL Normal 29.9-35.2 [facility] Comment on above: Performed By: #### C BC ####[facility] Sasxqfvcsj5715[address] [place], [place] [address]Dr. Cherjun Hernandez MCV (RBC) [Entitic vol] 91.5 fL Normal 81.0-99.0 [facility] Comment on above: Performed By: #### C BC ####[facility] Ouzshkjoht86[address] [place], [place] [address]Dr. Ivette David MONO # 0.4 103/ul Normal 0.3-0.8 [facility] Comment on above: Performed By: #### C BC ####[facility] Tktvnuyjoo087[address] [place], [place] [address]Dr. Ivette Hernandez Monocytes/100 WBC (Bld) 7.1 % Normal 1.7-12.0 [facility] Comment on above: Performed By: #### C BC ####[facility] Vhfcpmrzpm9444[address] [place], [place] [address]Dr. Cherjun David NEUT # 3.1 103/ul Normal 1.4-6.5 [facility] Comment on above: Performed By: #### C BC ####[facility] Wfypfkszcd8945[address] [place], [place] [address]Dr. Ivette Hernandez Neutrophils/100 WBC (Bld) 52.5 % Normal 43.0-75.0 [facility] Comment on above: Performed By: #### C BC ####[facility] Ivzwjllayn[address] [place], [place] [id number]. Ivette Hernandez Platelet mean volume (Bld) [Entitic vol] 9.6 fL Normal 9.5-13.5 [facility] Comment on above: Performed By: #### C BC ####[facility] Krutccqrzs027[address] [place] [address]Dr. Ivette Hernandez PLT 163 103/ul Normal 150-450 [facility] Comment on above: Performed By: #### C BC ####[facility] Gppfuujtob066[address] [place], [place] [address]Dr. Ivette Hernandez RBC 2.83 106/ul Critically low 4.20-5.40 [facility] Comment on above: Performed By: #### C BC ####[facility] Hsfbdfcohn380[address] [place], [place] [address]Dr. Ivette David WBC 5.9 103/ul Normal 4.0-11.0 [facility] Comment on above: Performed By: #### C BC ####[facility] Vfxtluxxne2888[address] [place], [place] [address]Dr. Ivette Hernandez CULTURE URINEon 04-12-2022 CULTURE URINE Normal [facility] Comment on above: Performed By: #### U RCX ####[facility] Ggsghzfpak8768[address] [place], [place] [address]Dr. Ivette David POINT OF CARE GLUCOSEon 04-02-2021 Glucose [Mass/Vol] 106 mg/dL Normal 74-106 [facility] Comment on above: Performed By: #### P OCGLUC ####[facility] Mrrtibrbgd2701[address] [place], [place] [address]Dr. Ivette David Glucose [Mass/Vol] 212 mg/dL Critically high 74-106 [facility] [place] [facility] Comment on above: Performed By: #### P OCGLUC ####[facility] Jdprqbfkak926[address] [place], [place] [address]Dr. Ivette Hernandez Glucose [Mass/Vol] 136 mg/dL Critically high 74-106 [facility] [place] [facility] Comment on above: Performed By: #### P OCGLUC ####[facility] Svytfyjskm314[address] [place], [place] [address]Dr. Ivette Hernandez PROF CHEM 8 (BAS METB)on Anion gap [Moles/Vol] 9.6 mmol/L Normal [facility] Comment on above: Performed By: #### B MP ####[facility] Wwxnfrepvv4432 [place] [address]Dr. Ivette Hernandez Calcium [Mass/Vol] 7.5 mg/dL Critically low 8.5-10.1 [facility] e [facility] Comment on above: Performed By: #### B MP ####[facility] Asjqmawtve3074[address] [place], [place] [address]Dr. Ivette Hernandez Chloride [Moles/Vol] 106 mmol/L Normal 98-107 [facility] Comment on above: Performed By: #### B MP ####[facility] Mpvjkxwqox1489[address] [place], [place] [address]Dr. Ivette Hernandez CO2 [Moles/Vol] 29.3 mmol/L Normal 21.0-32.0 [facility] Comment on above: Performed By: #### B MP ####[facility] Pterqostet9329[address] [place], [place] [address]Dr. Ivette Hernandez Creatinine [Mass/Vol] 1.48 mg/dL Critically high 0.55-1.02 [facility] Comment on above: Performed By: #### B MP ####[facility] Nisydgzkie659[address] [place], [place] [address]Dr. Ivette Hernandez EGFR-AF CROATIAN 42 mL/min/1.73m2 Critically low >=60 [facility] Comment on above: Performed By: #### B MP ####[facility] Sdbayqbcnn8505[address] [place], [place] [address]Dr. Ivette Hernandez EGFR-NON AF CROATIAN 35 mL/min/1.73m2 Critically low >=60 [facility] Comment on above: Performed By: #### B MP ####[facility] Rgtxnatxfg0201[address] [place], [place] [address]Dr. Ivette Hernandez Glucose [Mass/Vol] 87 mg/dL Normal 74-106 [facility] Comment on above: Performed By: #### B MP ####[facility] Ryiztqxyac299[address] [place] [address]Dr. Ivette Hernandez Potassium [Moles/Vol] 3.9 mmol/L Normal 3.5-5.1 [facility] Comment on above: Performed By: #### B MP ####[facility] Mvqozullgt9068[address] [place], [place] [address]Dr. Ivette Hernandez Sodium [Moles/Vol] 141 mmol/L Normal 136-145 [facility] Comment on above: Performed By: #### B MP ####[facility] Rumevqcoss7003[address] [place], [place] [address]Dr. Ivette Hernandez Urea nitrogen [Mass/Vol] 24.0 mg/dL Critically high 7.0-18.0 [facility] Comment on above: Performed By: #### B MP ####[facility] Jjsatpfzrx2878[address] [place], [place] [address]Dr. Ivette Hernandez Urea nitrogen/Creatinine [Mass ratio] 16.2 mg/mg Normal [facility] Comment on above: Performed By: #### B MP ####[facility] Nsuflitfwz60[address] [place], [place] [address]Dr. Ivette Hernandez CBC AUTO DIFFon 04-11-2022 BASO # 0.0 103/ul Normal 0.0-0.1 [facility] Comment on above: Performed By: #### C BC ####[facility] Hdemjevsvk1288[address] [place], [place] [address]Dr. Ivette David Basophils/100 WBC (Bld) 0.3 % Normal 0.2-2.0 [facility] Comment on above: Performed By: #### C BC ####[facility] Yaoutjrbpk2638[address] [place], [place] [address]Dr. Ivette Hernandez EO # 0.2 103/ul Normal 0.0-0.7 [facility] Comment on above: Performed By: #### C BC ####[facility] Twoqpibqwr916[address] [place], [place] [address]Dr. Ivette David Eosinophils/100 WBC (Bld) 2.8 % Normal 0.9-7.0 [facility] Comment on above: Performed By: #### C BC ####[facility] Sbuuadaeiw07[address] [place] [address]Dr. Ivette Hernandez Erythrocyte distribution width (RBC) [Ratio] 14.4 % Normal 11.0-15.0 [facility] Comment on above: Performed By: #### C BC ####[facility] Mpxqabydhn3779 [place] [address]Dr. Ivette Hernandez Hematocrit (Bld) [Volume fraction] 24.9 % Critically low 36.0-48.0 [facility] Comment on above: Performed By: #### C BC ####[facility] Yzxhjfqsoe788[address] [place], [place] [address]Dr. Ivette Hernandez Hemoglobin (Bld) [Mass/Vol] 7.7 g/dL Critically low 12.0-16.0 [facility] Comment on above: Performed By: #### C BC ####[facility] Kmglrniftt0942[address] [place], [place] [address]Dr. Ivette Hernandez IG # 0.02 10e3/ul Normal 0.00-0.03 [facility] Comment on above: Performed By: #### C BC ####[facility] Jheexxkjdq163[address] [place], [place] [address]Dr. Ivette Hernandez IG % 0.3 % Normal 0.0-0.5 [facility] Comment on above: Performed By: #### C BC ####[facility] Bgxlvfwfau63[address] [place], [place] [address]Dr. Ivette Hernandez LYMPH # 1.9 103/ul Normal 1.2-3.8 [facility] Comment on above: Performed By: #### C BC ####[facility] Eegmhsrrbd230[address] [place], [place] [address]Dr. Ivette Hernandez Lymphocytes/100 WBC (Bld) 32.7 % Normal 20.5-60.0 [facility] Comment on above: Performed By: #### C BC ####[facility] Vcmuimhwby8073[address] [place], [place] [address]Dr. Ivette Hernandez MANUAL DIFF REQ NO Normal [facility] Comment on above: Performed By: #### C BC ####[facility] Ro[address]epycjcd[address] [place] [address]Dr. Ivette Hernandez MCH (RBC) [Entitic mass] 28.3 pg Normal 26.7-34.0 [facility] Comment on above: Performed By: #### C BC ####[facility] Uevkxlwyqm6[address] [place] [address]Dr. Ivette Hernandez MCHC (RBC) [Mass/Vol] 30.9 g/dL Normal 29.9-35.2 [facility] Comment on above: Performed By: #### C BC ####[facility] Tsypfealwl2124[address] [place], [place] [address]Dr. Ivette Hernandez MCV (RBC) [Entitic vol] 91.5 fL Normal 81.0-99.0 [facility] Comment on above: Performed By: #### C BC ####[facility] Ojlpdtctsm[address] [place], [place] [address]Dr. Ivette David MONO # 0.5 103/ul Normal 0.3-0.8 [facility] Comment on above: Performed By: #### C BC ####[facility] Ykhdyytmyv[address] [place], [place] [address]Dr. Ivette David Monocytes/100 WBC (Bld) 8.2 % Normal 1.7-12.0 [facility] Comment on above: Performed By: #### C BC ####[facility] Zpqdcgjmdr6[address] [place], [place] [address]Dr. Ivette Hernandez NEUT # 3.2 103/ul Normal 1.4-6.5 [facility] Comment on above: Performed By: #### C BC ####[facility] Vmfimxnthh99[address] [place], [place] [address]Dr. Ivette David Neutrophils/100 WBC (Bld) 55.7 % Normal 43.0-75.0 [facility] Comment on above: Performed By: #### C BC ####[facility] Leyemchohm[address] [place], [place] [address]Dr. Ivette David Platelet mean volume (Bld) [Entitic vol] 9.7 fL Normal 9.5-13.5 [facility] Comment on above: Performed By: #### C BC ####[facility] [address] [place] [id number]. Ivette Hernandez PLT 139 103/ul Critically low 150-450 [facility] Comment on above: Performed By: #### C BC ####[facility] Kcuogsrwnx3767 [place] [id number]. Ivette Hernandez RBC 2.72 106/ul Critically low 4.20-5.40 [facility] Comment on above: Performed By: #### C BC ####[facility] Smzgwvznbs0795 [place] [id number]. Ivette Hernandez WBC 5.8 103/ul Normal 4.0-11.0 [facility] Comment on above: Performed By: #### C BC ####[facility] Ymznhyozea88[address] [place] [address]Dr. Ivette Hernandez IRON AND TIBCon 04-11-2022 % SATURATION 10.4 % Normal [facility] Comment on above: Performed By: #### B 12FOL, FETIBC ####[facility] Dcmnhnxptr3[address] [place] [address]Dr. Ivette Hernandez Iron [Mass/Vol] 19.0 ug/dL Critically low 50.0-170.0 [facility] Comment on above: Performed By: #### B 12FOL, FETIBC ####[facility] Mryykhqjhk3242 [place] [id number]. Ivette Hernandez TIBC DIRECT 182.0 ug/dL Critically low 250.0-450.0 [facility] Comment on above: Performed By: #### B 12FOL, FETIBC ####[facility] Ppfmfiiiml[address] [place] [id number]. Ivette Hernandez POINT OF CARE GLUCOSEon 04-02 Glucose [Mass/Vol] 124 mg/dL Critically high 74-106 [facility] [place] [facility] Comment on above: Performed By: #### P OCGLUC ####[facility] Bdkhisdgnc8[address] [place] [address]Dr. Ivette Hernandez Glucose [Mass/Vol] 128 mg/dL Critically high 74-106 [facility] [place] [facility] Comment on above: Performed By: #### P OCGLUC ####[facility] Eanubhiidp4152 [place] [address]Dr. Ivette Hernandez Glucose [Mass/Vol] 144 mg/dL Critically high 74-106 [facility] [place] [facility] Comment on above: Performed By: #### P OCGLUC ####[facility] Pfeyrmakoa99[address] [place] [address]Dr. Ivette Hernandez PROF CHEM 8 (BAS METB)on Anion gap [Moles/Vol] 9.7 mmol/L Normal [facility] Comment on above: Performed By: #### B MP ####[facility] Kfbbhxohha36[address] [place] [address]Dr. Ivette Hernandez Calcium [Mass/Vol] 6.9 mg/dL Critically low 8.5-10.1 [facility] Comment on above: Performed By: #### B MP ####[facility] Ofwsmawlbq7254[address] [place], [place] [address]Dr. Ivette Hernandez Chloride [Moles/Vol] 109 mmol/L Critically high 98-107 [facility] Comment on above: Performed By: #### B MP ####[facility] Cesjujvqma0[address] [place], [place] [address]Dr. Ivette Hernandez CO2 [Moles/Vol] 29.2 mmol/L Normal 21.0-32.0 [facility] Comment on above: Performed By: #### B MP ####[facility] Owwhbwoych37[address] [place], [place] [address]Dr. Ivette Hernandez Creatinine [Mass/Vol] 1.41 mg/dL Critically high 0.55-1.02 [facility] Comment on above: Performed By: #### B MP ####[facility] Qmtgcvhqzp8[address] [place], [place] [address]Dr. Ivette Hernandez EGFR-AF CROATIAN 44 mL/min/1.73m2 Critically low >=60 [facility] Comment on above: Performed By: #### B MP ####[facility] Faogaxiajz162[address] [place], [place] [address]Dr. Ivette Hernandez EGFR-NON AF CROATIAN 37 mL/min/1.73m2 Critically low >=60 [facility] Comment on above: Performed By: #### B MP ####[facility] Xafoamjzoc[address] [place] [address]Dr. Ivette Hernandez Glucose [Mass/Vol] 95 mg/dL Normal 74-106 [facility] Comment on above: Performed By: #### B MP ####[facility] Kezldyrbsm70[address] [place], [place] [address]Dr. Ivette Hernandez Potassium [Moles/Vol] 3.9 mmol/L Normal 3.5-5.1 [facility] Comment on above: Performed By: #### B MP ####[facility] Orysinsxiq15[address] [place], [place] [address]Dr. Ivette Hernandez Sodium [Moles/Vol] 144 mmol/L Normal 136-145 [facility] Comment on above: Performed By: #### B MP ####[facility] Dmbinzthim8975[address] [place], [place] [address]Dr. Ivette Hernandez Urea nitrogen [Mass/Vol] 25.0 mg/dL Critically high 7.0-18.0 [facility] Comment on above: Performed By: #### B MP ####[facility] Mkzfxinfax6[address] [place], [place] [address]Dr. Ivette David Urea nitrogen/Creatinine [Mass ratio] 17.7 mg/mg Normal [facility] Comment on above: Performed By: #### B MP ####[facility] Yoaazznuod[address] [place], [place] [address]Dr. Ivette Hernandez VIT B12 AND FOLATEon 022 Cobalamin (Vitamin B12) [Mass/Vol] 769.0 pg/mL Normal 193.0-986.0 [facility] Comment on above: Performed By: #### B 12FOL, FETIBC ####[facility] Mjkxmcfabz[address] [place], [place] [address]Dr. Ivette Hernandez FOLATE 22.60 ng/mL Normal 8.60-58.90 [facility] Comment on above: Performed By: #### B 12FOL, FETIBC ####[facility] V[address]qpclmpr1169 [place], [place] [address]Du. Ivette Hernandez CARDIAC CANDACE 3-6on 2 CK [Catalytic activity/Vol] 38 U/L Normal 26-192 [facility] Comment on above: Performed By: #### C MREP ####[facility] Utzsvaqllg8[address] [place], [place] [address]Ks. Ivette Hernandez CK.MB [Mass/Vol] 0.75 ng/mL Normal <=3.60 [facility] Comment on above: Performed By: #### C MREP ####[facility] Igzerboqur22[address] [place] [id number]. Ivette Hernandez HSTROP 11.9 pg/mL Normal 4.0-51.3 [facility] Comment on above: Result Comment: CUT- OFF POINTS HAVE BEEN ESTABLISHED BASED ON THE FOURTH UNIVERSAL DEFINITIONS OF MYOCARDIALINFARCTION. THE UPPER REFERENCE LIMIT (URL) OF TROPONIN, DEFINED THE 99TH PERCENTILE OFcTnI DISTRIBUTION IN A REFERENCE POPULATION, HAS BEEN CONFIRMED THE DECISION THRESHOLDFOR SD DIAGNOSIS. Performed By: #### C MREP ####[facility] Idtnsxsuhi64[address] [place] [id number]. Ivette Hernandez CK [Catalytic activity/Vol] 38 U/L Normal 26-192 [facility] Comment on above: Performed By: #### C MREP ####[facility] Mbsrdyckhy4[address] [place] [id number]. Ivette Hernandez CK.MB [Mass/Vol] 0.11 ng/mL Normal <=3.60 [facility] Comment on above: Performed By: #### C MREP ####[facility] Brngrpdvaa4071 [place] [id number]. Ivette Hernandez HSTROP 11.5 pg/mL Normal 4.0-51.3 [facility] Comment on above: Result Comment: CUT- OFF POINTS HAVE BEEN ESTABLISHED BASED ON THE FOURTH UNIVERSAL DEFINITIONS OF MYOCARDIALINFARCTION. THE UPPER REFERENCE LIMIT (URL) OF TROPONIN, DEFINED THE 99TH PERCENTILE OFcTnI DISTRIBUTION IN A REFERENCE POPULATION, HAS BEEN CONFIRMED THE DECISION THRESHOLDFOR SD DIAGNOSIS. Performed By: #### C MREP ####[facility] Kwqhuaxgbd5509 [place] [phone]. Ivette David CBC AUTO DIFFon 04-10-2022 BASO # 0.0 103/ul Normal 0.0-0.1 [facility] Comment on above: Performed By: #### C BC ####[facility] Mvuufrokcm[address] [place], [place] [address]Dr. Cherjun Hernandez Basophils/100 WBC (Bld) 0.3 % Normal 0.2-2.0 [facility] Comment on above: Performed By: #### C BC ####[facility] Adsrclljny7[address] [place], [place] [address]Dr. Cherjun Hernandez EO # 0.1 103/ul Normal 0.0-0.7 [facility] Comment on above: Performed By: #### C BC ####[facility] Lbyjhtwjox[address]67[address] [place], [place] [address]Dr. Ivette Hernandez Eosinophils/100 WBC (Bld) 0.9 % Normal 0.9-7.0 [facility] Comment on above: Performed By: #### C BC ####[facility] Kejsohchqt[address] [place], [place] [address]Dr. Cherjun Hernandez Erythrocyte distribution width (RBC) [Ratio] 14.5 % Normal 11.0-15.0 [facility] Comment on above: Performed By: #### C BC ####[facility] Osqgqducpp17[address] [place], [place] [address]Dr. Cherjun Hernandez Hematocrit (Bld) [Volume fraction] 26.1 % Critically low 36.0-48.0 [facility] Comment on above: Performed By: #### C BC ####[facility] Oqjeqdephl9[address] [place], [place] [address]Dr. Cherjun Hernandez Hemoglobin (Bld) [Mass/Vol] 8.0 g/dL Critically low 12.0-16.0 [facility] Comment on above: Performed By: #### C BC ####[facility] Jtzbdfneuc[address] [place], [place] [address]Dr. Ivette Hernandez IG # 0.03 10e3/ul Normal 0.00-0.03 [facility] Comment on above: Performed By: #### C BC ####[facility] Tazphyhiqy70[address] [place] [id number]. Ivette Hernandez IG % 0.4 % Normal 0.0-0.5 [facility] Comment on above: Performed By: #### C BC ####[facility] Jrcamlfxui8[address] [place] [address]Dr. Ivette Hernandez LYMPH # 2.2 103/ul Normal 1.2-3.8 [facility] Comment on above: Performed By: #### C BC ####[facility] Cxjtcotvmx6765[address] [place], [place] [address]Dr. Ivette David Lymphocytes/100 WBC (Bld) 29.3 % Normal 20.5-60.0 [facility] Comment on above: Performed By: #### C BC ####[facility] Hibvgglkeg4[address] [place], [place] [address]Dr. Cherjun Hernandez MANUAL DIFF REQ NO Normal [facility] Comment on above: Performed By: #### C BC ####[facility] Vesuohxfnd18[address] [place], [place] [address]Dr. Ivette Hernandez MCH (RBC) [Entitic mass] 28.4 pg Normal 26.7-34.0 [facility] Comment on above: Performed By: #### C BC ####[facility] Dwbdkxuhpc8039[address] [place], [place] [address]Dr. Ivette Hernandez MCHC (RBC) [Mass/Vol] 30.7 g/dL Normal 29.9-35.2 [facility] Comment on above: Performed By: #### C BC ####[facility] Aobkvcnrix34[address] [place], [place] [address]Dr. Ivette Hernandez MCV (RBC) [Entitic vol] 92.6 fL Normal 81.0-99.0 [facility] Comment on above: Performed By: #### C BC ####[facility] Pfnkwgazim6[address] [place], [place] [address]Dr. Cherjun Hernandez MONO # 0.6 103/ul Normal 0.3-0.8 [facility] Comment on above: Performed By: #### C BC ####[facility] Krggrstxng8690 [place] [id number]. Ivette Hernandez Monocytes/100 WBC (Bld) 8.7 % Normal 1.7-12.0 [facility] Comment on above: Performed By: #### C BC ####[facility] Ldiprecpnk6415 [place] [id number]. Ivette Hernandez NEUT # 4.5 103/ul Normal 1.4-6.5 [facility] Comment on above: Performed By: #### C BC ####[facility] Yhnmpmgycj8987 [place] [id number]. Ivette Hernandez Neutrophils/100 WBC (Bld) 60.4 % Normal 43.0-75.0 [facility] Comment on above: Performed By: #### C BC ####[facility] Ltitgtvdfz0074 [place] [address]Dr. Ivette Hernandez Platelet mean volume (Bld) [Entitic vol] 9.8 fL Normal 9.5-13.5 [facility] Comment on above: Performed By: #### C BC ####[facility] Gycaeirgvp0417 [place] [id number]. Ivette Hernandez PLT 139 103/ul Critically low 150-450 [facility] Comment on above: Performed By: #### C BC ####[facility] Tejwtbqapk1453 [place] [id number]. Ivette Hernandez RBC 2.82 106/ul Critically low 4.20-5.40 [facility] Comment on above: Performed By: #### C BC ####[facility] V[address]wrupak[address] [place], [place] [address]Dr. Ivette Hernandez WBC 7.4 103/ul Normal 4.0-11.0 [facility] Comment on above: Performed By: #### C BC ####[facility] Thlijotlqp37[address] [place] [address]Dr. Ivette Hernandez CULTURE BLOODon 04-10-2022 Microscopic examination of blood, culture Culture Observations: NO GROWTH AT 5 DAYS. Normal [facility] Comment on above: Performed By: #### B LDCX2 ####[facility] Wapcxzjygd[address] [place] [address]Dr. Ivette Hernandez Microscopic examination of blood, culture Culture Observations: NO GROWTH AT 5 DAYS. Normal [facility] Comment on above: Performed By: #### B LDCX1 ####[facility] Fnklkbbokd69[address] [place] [address]Dr. Ivette Hernandez Covid-19 PCR (CVDTB)on SARS-CoV-2 (COVID-19) RNA MARRY+probe Ql (Unsp spec) Not detected Normal NOT DETECTED [facility] Comment on above: Result Comment: When diagnostic [...] for this test is supported by the [place] of Health and Human Service's declaration that [...] be used). Performed By: #### C VDTBH ####[facility] Tzqzqsntbx[address] [place], [place] [address]Dr. Ivette Hernandez ER URINE PROFILEon 2 Bilirubin Ql (U) Negative Normal NEGATIVE [facility] Comment on above: Performed By: #### SONNY MCKOY ####[facility] Yryfbsfpjz22[address] [place], [place] [address]Dr. Ivette Hernandez Clarity (U) CLEAR Normal CLEAR [facility] Comment on above: Performed By: #### SONNY MCKOY ####[facility] Pecmvjbquh[address] [place], [place] [address]Dr. Ivette Hernandez Color (U) YELLOW Normal YELLOW [facility] Comment on above: Performed By: #### FILIPE MCKOYICRO ####[facility] Jteggwnbma340[address] [place] [address]Dr. Cherjun Hernandez ERUAHD A micrscopic examination will be performed if indicated. Normal [facility] Comment on above: Performed By: #### Ata RONDON UMICRO ####[facility] Shpmxvcrst29[address] [place] [address]Dr. Ivette Hernandez Glucose Ql (U) Negative Normal NEGATIVE [facility] Comment on above: Performed By: #### Ata RONDNO UMICRO ####[facility] Fykvfrwsac[address] [place], [place] [address]Dr. Ivette David Hemoglobin Ql (U) MODERATE Abnormal NEGATIVE [facility] Comment on above: Performed By: #### Ata RONDON UMICRO ####[facility] Voprapdaxr8104[address] [place], [place] [address]Dr. Ivette Hernandez Ketones Ql (U) TRACE Abnormal NEGATIVE [facility] Comment on above: Performed By: #### Ata RONDON UMICRO ####[facility] Cdpustctrg16[address] [place], [place] [address]Dr. Cherjun Hernandez LEUKOCYTES MODERATE Abnormal NEGATIVE [facility] Comment on above: Performed By: #### Ata RONDON UMICRO ####[facility] Xwqrwpaekp39[address] [place], [place] [address]Dr. Ivette Hernandez Nitrite Ql (U) Negative Normal NEGATIVE [facility] Comment on above: Performed By: #### Ata RONDON UMICRO ####[facility] Fbemopqzfa7468 [place] [address]Dr. Ivette Hernandez pH (U) 7.0 [pH] Normal 5-9 [facility] Comment on above: Performed By: #### Ata RONDON UMICRO ####[facility] Jkrzyafitc37[address] [place], [place] [address]Dr. Ivette Hernandez SPEC GRAVITY 1.020 Normal 1.005-<=1.025 [facility] Comment on above: Performed By: #### SONNY MCKOY ####[facility] Fqynjcbtzf2174 [place] [address]Dr. Ivette Hernandez UA PROTEIN >300 Abnormal NEGATIVE/ TRACE [facility] Comment on above: Performed By: #### SONNY MCKOY ####[facility] Zrswxbjgwg29[address] [place] [address]Dr. Ivette Hernandez UR MICRO IND INDICATED Normal [facility] Comment on above: Performed By: #### SONNY MCKOY ####[facility] Zcrewxnmwr4177 [place] [address]Dr. Ivette Hernandez Urobilinogen Qn (U) 0.2 {Mack'U}/dL Normal 0.2 - 1. 0 [facility] Comment on above: Performed By: #### SONNY MCKOY ####[facility] Qicslcstqr7270 [place] [address]Dr. Ivette Hernandez POINT OF CARE GLUCOSEon Glucose [Mass/Vol] 164 mg/dL Critically high [address] [place] [address] Comment on above: Performed By: #### P OCGLUC ####[facility] Splvrpjmkd9416[address] [place], [place] [address]Dr. Ivette Hernandez Glucose [Mass/Vol] 123 mg/dL Critically high [address] [place] [address] Comment on above: Performed By: #### P OCGLUC ####[facility] Vhmylhcxfj093[address] [place], [place] [address]Dr. Ivette Hernandez Glucose [Mass/Vol] 115 mg/dL Critically high [address] [place] [address] Comment on above: Performed By: #### P OCGLUC ####[facility] Ydexasmdig7308[address] [place], [place] [address]Dr. Ivette Hernandez PROF CHEM 8 (BAS METB)on Anion gap [Moles/Vol] 11.8 mmol/L Normal [facility] Comment on above: Performed By: #### B MP ####[facility] Bejwniordy0[address] [place], [place] [address]Dr. Ivette Hernandez Calcium [Mass/Vol] 6.5 mg/dL Critically low 8.5-10.1 [facility] Comment on above: Performed By: #### B MP ####[facility] Osewiiusid27[address] [place] [address]Dr. Ivette Hernandez Chloride [Moles/Vol] 108 mmol/L Critically high 98-107 [facility] Comment on above: Performed By: #### B MP ####[facility] Xxovmqwucw8164[address] [place], [place] [address]Dr. Ivette Hernandez CO2 [Moles/Vol] 29.2 mmol/L Normal 21.0-32.0 [facility] Comment on above: Performed By: #### B MP ####[facility] Misvyxnxzg3703[address] [place], [place] [address]Dr. Ivette Hernandez Creatinine [Mass/Vol] 1.61 mg/dL Critically high 0.55-1.02 [facility] Comment on above: Performed By: #### B MP ####[facility] Spdfvxjtfp[address] [place], [place] [address]Dr. Ivette Hernandez EGFR-AF CROATIAN 38 mL/min/1.73m2 Critically low >=60 [facility] Comment on above: Performed By: #### B MP ####[facility] Hxvdxfbtot2033[address] [place], [place] [address]Dr. Ivette Hernandez EGFR-NON AF CROATIAN 31 mL/min/1.73m2 Critically low >=60 [facility] Comment on above: Performed By: #### B MP ####[facility] Uuuxgfltwb6873[address] [place], [place] [address]Dr. Ivette Hernandez Glucose [Mass/Vol] 107 mg/dL Critically high 74-106 [facility] [place] [facility] Comment on above: Performed By: #### B MP ####[facility] Hrwzpgtloy9455[address] [place], [place] [address]Dr. Ivette Hernandez Potassium [Moles/Vol] 4.0 mmol/L Normal 3.5-5.1 [facility] Comment on above: Performed By: #### B MP ####[facility] Ohebioykjx0696[address] [place], [place] [address]Dr. Ivette Hernandez Sodium [Moles/Vol] 145 mmol/L Normal 136-145 [facility] Comment on above: Performed By: #### B MP ####[facility] Bzzoleouuo6623[address] [place], [place] [address]Dr. Ivette Hernandez Urea nitrogen [Mass/Vol] 23.0 mg/dL Critically high 7.0-18.0 [facility] Comment on above: Performed By: #### B MP ####[facility] Lcucjpljwt04[address] [place], [place] [address]Dr. Ivette Hernandez Urea nitrogen/Creatinine [Mass ratio] 14.3 mg/mg Normal [facility] Comment on above: Performed By: #### B MP ####[facility] Zjtrkbwtnp1442[address] [place], [place] [address]Dr. Ivette Hernandez URINE MICROSCOPIC ONLYon BACTERIA MODERATE Abnormal NONE SEEN [facility] Comment on above: Performed By: #### Ata RONDON UMICRO ####[facility] Yunxlfekfj4623[address] [place], [place] [address]Dr. Ivette Hernandez Bacteria identified Cx Nom (U) INDICATED Normal [facility] Comment on above: Performed By: #### Ata RONDON UMICRO ####[facility] Ejxtnxmrbu[address] [place], [place] [address]Dr. Ivette Hernandez CAST NONE SEEN Normal NONE SEEN [facility] Comment on above: Performed By: #### Ata RONDON UMICRO ####[facility] Pqrtdbmsvy6535[address] [place], [place] [address]Dr. Ivette Hernandez Crystals LM Nom (Urine sed) NONE SEEN Normal NONE SEEN [facility] Comment on above: Performed By: #### Ata RONDON UMICRO ####[facility] Bwisyvjucl24[address] [place], [place] [address]Dr. Ivette Hernandez Epithelial cells LM Ql (Urine sed) RARE Normal NONE SEEN /RARE [facility] Comment on above: Performed By: #### Ata RONDON UMICRO ####[facility] Qeigcgoslj9063[address] [place], [place] [address]Dr. Ivette Hernandez MUCOUS NONE SEEN Normal NONE SEEN [facility] Comment on above: Performed By: #### SONNY MCKOY ####[facility] Irvjkconfw0469 [place] [id number]. Ivette Hernandez RBC NONE SEEN Abnormal 0-2 [facility] Comment on above: Performed By: #### SONNY MCKOY ####[facility] Nwcdpvqawa9854 [place] [id number]. Ivette Hernandez WBC 20-50 Abnormal NONE SEEN [facility] Comment on above: Performed By: #### SONNY MCKOY ####[facility] Vyryyrqbtx1537 [place] [id number]. Ivette Hernandez XR CHEST 1 Von 04-10-2022 XR CHEST 1 V Normal [facility] CARDIAC CANDACE ADMITon 022 CK [Catalytic activity/Vol] 37 U/L Normal 26-192 [facility] Comment on above: Performed By: #### MYRNA ORTIZ ####[facility] Qqqgmfrlxi5732 [place] [address]Dr. Ivette Hernandez CK.MB [Mass/Vol] 0.14 ng/mL Normal <=3.60 [facility] Comment on above: Performed By: #### MYRNA ORTIZ ####[facility] Cpaeknfhtq[address] [place], [place] [address]Dr. Ivette Hernandez HSTROP 11.0 pg/mL Normal 4.0-51.3 [facility] Comment on above: Result Comment: CUT- OFF POINTS HAVE BEEN ESTABLISHED BASED ON THE FOURTH UNIVERSAL DEFINITIONS OF MYOCARDIALINFARCTION. THE UPPER REFERENCE LIMIT (URL) OF TROPONIN, DEFINED THE 99TH PERCENTILE OFcTnI DISTRIBUTION IN A REFERENCE POPULATION, HAS BEEN CONFIRMED THE DECISION THRESHOLDFOR SD DIAGNOSIS. Performed By: #### Daren PEREYRA, BMP ####[facility] [address] [place] [address]Dr. Ivette Hernandez CARMITA 1 ng/mL Critically low 9-82 [facility] Comment on above: Performed By: #### Daren PEREYRA, BMP ####[facility] Dvkajdfvdv[address] [place] [address]Dr. Ivette Hernandez CBC AUTO DIFFon 04-09-2022 BASO # 0.0 103/ul Normal 0.0-0.1 [facility] Comment on above: Performed By: #### C BC ####[facility] Ajeqsiwkmi6[address] [place], [place] [address]Dr. Ivette Hernandez Basophils/100 WBC (Bld) 0.2 % Normal 0.2-2.0 [facility] Comment on above: Performed By: #### C BC ####[facility] Mcpksbijlc8[address] [place], [place] [address]DrJesse Hernandez EO # 0.0 103/ul Normal 0.0-0.7 [facility] Comment on above: Performed By: #### C BC ####[facility] Ikywnhtlyd94[address] [place], [place] [address]Dr. Ivette Hernandez Eosinophils/100 WBC (Bld) 0.5 % Critically low 0.9-7.0 [facility] Comment on above: Performed By: #### C BC ####[facility] Kdeuvzwjvt4564[address] [place], [place] [address]Dr. Ivette Hernandez Erythrocyte distribution width (RBC) [Ratio] 14.6 % Normal 11.0-15.0 [facility] Comment on above: Performed By: #### C BC ####[facility] Epnrxfnpae[address] [place], [place] [address]Dr. Ivette Hernandez Hematocrit (Bld) [Volume fraction] 27.0 % Critically low 36.0-48.0 [facility] Comment on above: Performed By: #### C BC ####[facility] Srnrveugom067[address] [place], [place] [address]DrJesse Hernandez Hemoglobin (Bld) [Mass/Vol] 8.5 g/dL Critically low 12.0-16.0 [facility] Comment on above: Performed By: #### C BC ####[facility] Cmsdnfzltt60[address] [place], [place] [address]DrJesse Hernandez IG # 0.02 10e3/ul Normal 0.00-0.03 [facility] Comment on above: Performed By: #### C BC ####[facility] Bsaojwzjha05[address] [place], [place] [address]Dr. Ivette Hernandez IG % 0.2 % Normal 0.0-0.5 [facility] Comment on above: Performed By: #### C BC ####[facility] A[address]vviiutd[address] [place] [address]DrJesse Hernandez LYMPH # 1.4 103/ul Normal 1.2-3.8 [facility] Comment on above: Performed By: #### C BC ####[facility] [address]lswsu[address] [place] [address]DrJesse Hernandez Lymphocytes/100 WBC (Bld) 17.2 % Critically low 20.5-60.0 [facility] Comment on above: Performed By: #### C BC ####[facility] Uncaffacoa[address] [place], [place] [address]DrJesse Hernandez MANUAL DIFF REQ NO Normal [facility] Comment on above: Performed By: #### C BC ####[facility] Adgdyfscwf9[address] [place], [place] [address]DrJesse Hernandez MCH (RBC) [Entitic mass] 28.7 pg Normal 26.7-34.0 [facility] Comment on above: Performed By: #### C BC ####[facility] Xpkcdhryva932[address] [place], [place] [address]DrJesse Hernandez MCHC (RBC) [Mass/Vol] 31.5 g/dL Normal 29.9-35.2 [facility] Comment on above: Performed By: #### C BC ####[facility] Phvhmkqujm942[address] [place], [place] [address]DrJesse Hernandez MCV (RBC) [Entitic vol] 91.2 fL Normal 81.0-99.0 [facility] Comment on above: Performed By: #### C BC ####[facility] Ivdpzxhowr3108[address] [place], [place] [address]DrJesse Hernandez MONO # 0.5 103/ul Normal 0.3-0.8 [facility] Comment on above: Performed By: #### C BC ####[facility] Cciululdbw6537[address] [place], [place] [address]DrJesse Hernandez Monocytes/100 WBC (Bld) 6.5 % Normal 1.7-12.0 [facility] Comment on above: Performed By: #### C BC ####[facility] [address]ajclpte[address] [place] [address]Dr. Ivette Hernandez NEUT # 6.3 103/ul Normal 1.4-6.5 [facility] Comment on above: Performed By: #### C BC ####[facility] Otczxwiypv[address] [place] [address]Dr. Ivette Hernandez Neutrophils/100 WBC (Bld) 75.4 % Critically high 43.0-75.0 [facility] Comment on above: Performed By: #### C BC ####[facility] Dphbfbfaro[address] [place], [place] [address]DrJesse Hernandez Platelet mean volume (Bld) [Entitic vol] 9.8 fL Normal 9.5-13.5 [facility] Comment on above: Performed By: #### C BC ####[facility] Bbnnvrmtge[address] [place], [place] [address]Dr. Ivette Hernandez PLT 158 103/ul Normal 150-450 [facility] Comment on above: Performed By: #### C BC ####[facility] Wiqnideoyl6355[address] [place], [place] [address]DrJesse Hernandez RBC 2.96 106/ul Critically low 4.20-5.40 [facility] Comment on above: Performed By: #### C BC ####[facility] Ojmfpzsmfo10[address] [place], [place] [address]DrJesse Hernandez WBC 8.4 103/ul Normal 4.0-11.0 [facility] Comment on above: Performed By: #### C BC ####[facility] Csvvpcrgsk1818[address] [place], [place] [address]DrJesse Hernandez LACTATE/LACTIC ACIDon 2021 Lactate [Moles/Vol] 0.9 mmol/L Normal 0.4-1.9 [facility] Comment on above: Performed By: #### L ACT ####[facility] Fcaghdjcxg8024[address] [place], [place] [address]DrJesse Hernandez PROF CHEM 8 (BAS METB)on Anion gap [Moles/Vol] 8.8 mmol/L Normal [facility] Comment on above: Performed By: #### Daren PEREYRA, BMP ####[facility] Ytftceoqwl[address] [place], [place] [address]Dr. Ivette Hernandez Calcium [Mass/Vol] 6.9 mg/dL Critically low 8.5-10.1 [facility] Comment on above: Performed By: #### C RODDY, BMP ####[facility] Wcbdfixfuf3136[address] [place], [place] [address]Dr. Ivette Hernandez Chloride [Moles/Vol] 105 mmol/L Normal 98-107 [facility] Comment on above: Performed By: #### Daren PEREYRA, BMP ####[facility] Odvhwzwvti4656[address] [place], [place] [address]Dr. Ivette Hernandez CO2 [Moles/Vol] 28.1 mmol/L Normal 21.0-32.0 [facility] Comment on above: Performed By: #### Daren PEREYRA, BMP ####[facility] Zgjsacyiql39[address] [place], [place] [address]Dr. Ivette Hernandez Creatinine [Mass/Vol] 1.77 mg/dL Critically high 0.55-1.02 [facility] Comment on above: Performed By: #### Daren PEREYRA, BMP ####[facility] Vturtkhayz14[address] [place], [place] [address]Dr. Ivette Hernandez EGFR-AF CROATIAN 34 mL/min/1.73m2 Critically low >=60 [facility] Comment on above: Performed By: #### C RODDY, BMP ####[facility] Jnzopcproo13[address] [place], [place] [address]Dr. Ivette Hernandez EGFR-NON AF CROATIAN 28 mL/min/1.73m2 Critically low >=60 [facility] Comment on above: Performed By: #### Daren PEREYRA, BMP ####[facility] Syhdniauyr4279[address] [place], [place] [address]Dr. Ivette Hernandez Glucose [Mass/Vol] 130 mg/dL Critically high 74-106 [facility] Comment on above: Performed By: #### C RODDY, BMP ####[facility] Ikstgibcva465[address] [place], [place] [address]Dr. Ivette Hernandez Potassium [Moles/Vol] 3.9 mmol/L Normal 3.5-5.1 [facility] Comment on above: Performed By: #### C RODDY, BMP ####[facility] Krsyklkqob433[address] [place], [place] [address]Dr. Ivette Hernandez Sodium [Moles/Vol] 138 mmol/L Normal 136-145 [facility] Comment on above: Performed By: #### C RODDY, BMP ####[facility] Nbvdviatyc[address] [place], [place] [address]Dr. Ivette Hernandez Urea nitrogen [Mass/Vol] 25.0 mg/dL Critically high 7.0-18.0 [facility] Comment on above: Performed By: #### C RODDY, BMP ####[facility] Ezaytijxda69[address] [place], [place] [address]Dr. Ivette Hernandez Urea nitrogen/Creatinine [Mass ratio] 14.1 mg/mg Normal [facility] Comment on above: Performed By: #### C RODDY, BMP ####[facility] Ibgxytrzvg[address] [place], [place] [address]Dr. Ivette Hernandez AMMONIAon 03-10-2022 Ammonia (P) [Moles/Vol] 12 umol/L Normal 11-32 [facility] Comment on above: Performed By: #### A MM ####[facility] Oirakpmbli[address] [place], [place] [address]Dr. Ivette Hernandez BNPon 03-10-2022 Natriuretic peptide B (Bld) [Mass/Vol] 9132.0 pg/mL Critically high <=900.0 [facility] Comment on above: Performed By: #### M G, CMP, PHOS, BNP ####[facility] Lhinbtwhlq6254[address] [place], [place] [address]Dr. Ivette Hernandez CBC AUTO DIFFon 03-10-2022 BASO # 0.0 103/ul Normal 0.0-0.1 [facility] Comment on above: Performed By: #### C BC ####[facility] [address] [place] [id number]. Ivette Hernandez Basophils/100 WBC (Bld) 0.3 % Normal 0.2-2.0 [facility] Comment on above: Performed By: #### C BC ####[facility] Vbmhqxgfug[address] [place], [place] [address]Dr. Ivette Hernandez EO # 0.3 103/ul Normal 0.0-0.7 [facility] Comment on above: Performed By: #### C BC ####[facility] Puitcfcjps6532[address] [place], [place] [address]Dr. Ivette Hernandez Eosinophils/100 WBC (Bld) 3.2 % Normal 0.9-7.0 [facility] Comment on above: Performed By: #### C BC ####[facility] Saplqnhxox5[address] [place], [place] [address]Dr. Ivette Hernandez Erythrocyte distribution width (RBC) [Ratio] 14.3 % Normal 11.0-15.0 [facility] Comment on above: Performed By: #### C BC ####[facility] Vpsjaoujvn[address]17[address] [place], [place] [address]Dr. Ivette Hernandez Hematocrit (Bld) [Volume fraction] 25.5 % Critically low 36.0-48.0 [facility] Comment on above: Performed By: #### C BC ####[facility] Atkkelxhqj36[address] [place], [place] [address]Dr. Ivette Hernandez Hemoglobin (Bld) [Mass/Vol] 8.0 g/dL Critically low 12.0-16.0 [facility] Comment on above: Performed By: #### C BC ####[facility] Vmkhqjhpuf5[address] [place], [place] [address]Dr. Ivette Hernandez IG # 0.05 10e3/ul Critically high 0.00-0.03 [facility] Comment on above: Performed By: #### C BC ####[facility] Uljshzzsxx3462[address] [place], [place] [address]Dr. Ivette Hernandez IG % 0.6 % Critically high 0.0-0.5 [facility] Comment on above: Performed By: #### C BC ####[facility] [address]aufd[address] [place] [id number]. Ivette Hernandez LYMPH # 1.9 103/ul Normal 1.2-3.8 [facility] Comment on above: Performed By: #### C BC ####[facility] Fe[address]xsnuhv[address] [place] [address]Dr. Ivette David Lymphocytes/100 WBC (Bld) 20.8 % Normal 20.5-60.0 [facility] Comment on above: Performed By: #### C BC ####[facility] [address]khke[address] [place] [address]Dr. Ivette David MANUAL DIFF REQ NO Normal [facility] Comment on above: Performed By: #### C BC ####[facility] Wgtaawdkro[address] [place], [place] [address]Dr. Ivette David MCH (RBC) [Entitic mass] 28.7 pg Normal 26.7-34.0 [facility] Comment on above: Performed By: #### C BC ####[facility] Wpkhzyigvj9[address] [place], [place] [address]Dr. Ivette Hernandez MCHC (RBC) [Mass/Vol] 31.4 g/dL Normal 29.9-35.2 [facility] Comment on above: Performed By: #### C BC ####[facility] Qti[address]ouduh[address] [place] [id number]. Ivette David MCV (RBC) [Entitic vol] 91.4 fL Normal 81.0-99.0 [facility] Comment on above: Performed By: #### C BC ####[facility] G[address]wcyq[address] [place], [place] [address]Dr. Ivette Hernandez MONO # 0.5 103/ul Normal 0.3-0.8 [facility] Comment on above: Performed By: #### C BC ####[facility] [address]qwvznn[address] [place] [address]Dr. Ivette David Monocytes/100 WBC (Bld) 5.6 % Normal 1.7-12.0 [facility] Comment on above: Performed By: #### C BC ####[facility] Pjsutuuajo[address] [place] [id number]. Ivette Hernandez NEUT # 6.2 103/ul Normal 1.4-6.5 [facility] Comment on above: Performed By: #### C BC ####[facility] Xopolycimb8[address] [place] [id number]. Ivette Hernandez Neutrophils/100 WBC (Bld) 69.5 % Normal 43.0-75.0 [facility] Comment on above: Performed By: #### C BC ####[facility] [address]oeanx[address] [place] [address]Dr. Ivette Hernandez Platelet mean volume (Bld) [Entitic vol] 9.3 fL Critically low 9.5-13.5 [facility] Comment on above: Performed By: #### C BC ####[facility] H[address]ufrfhqw[address] [place] [address]Dr. Ivette Hernandez PLT 213 103/ul Normal 150-450 [facility] Comment on above: Performed By: #### C BC ####[facility] Msbkaynfvo[address] [place], [place] [address]Dr. Ivtete Hernandez RBC 2.79 106/ul Critically low 4.20-5.40 [facility] Comment on above: Performed By: #### C BC ####[facility] Npigtouyzj[address] [place], [place] [address]Dr. Ivette Hernandez WBC 8.9 103/ul Normal 4.0-11.0 [facility] Comment on above: Performed By: #### C BC ####[facility] Zkjjzgbjex[address] [place], [place] [address]Dr. Ivette Hernandez MAGNESIUMon 03-10-2022 Magnesium [Mass/Vol] 1.9 mg/dL Normal 1.8-2.4 [facility] Comment on above: Performed By: #### M G, CMP, PHOS, BNP ####[facility] [address]ippelxaa[address] [place] [id number]. Ivette Hernandez PHOSPHORUSon 03-10-2022 Phosphate [Mass/Vol] 3.8 mg/dL Normal 2.6-4.7 [facility] Comment on above: Performed By: #### M G, CMP, PHOS, BNP ####[facility] Zcrlovfdgv[address] [place] [address]Dr. Ivette Hernandez PROF 14(COMP METB)on 022 Albumin [Mass/Vol] 2.3 g/dL Critically low 3.4-5.0 Th e [facility] Comment on above: Performed By: #### M G, CMP, PHOS, BNP ####[facility] Fuypkwyvei37[address] [place], [place] [address]Dr. Ivette Hernandez Albumin/Globulin [Mass ratio] 0.6 {ratio} Normal [facility] Comment on above: Performed By: #### M G, CMP, PHOS, BNP ####[facility] Evpnmnugcc50[address] [place], [place] [address]Dr. Ivette Hernandez ALP [Catalytic activity/Vol] 64 U/L Normal 46-116 [facility] Comment on above: Performed By: #### M G, CMP, PHOS, BNP ####[facility] Bzobsiffow[address] [place], [place] [address]Dr. Ivette Hernandez ALT [Catalytic activity/Vol] 14 U/L Normal 14-59 [facility] Comment on above: Performed By: #### M G, CMP, PHOS, BNP ####[facility] Xywyjkduwe[address] [place] [address]Dr. Ivette Hernandez Anion gap [Moles/Vol] 3.4 mmol/L Normal [facility] Comment on above: Performed By: #### M G, CMP, PHOS, BNP ####[facility] Maqywgeoia8[address] [place], [place] [address]Dr. Ivette Hernandez AST [Catalytic activity/Vol] 20 U/L Normal 15-37 [facility] Comment on above: Performed By: #### M G, CMP, PHOS, BNP ####[facility] Ptkezlpxno15[address] [place], [place] [address]Dr. Ivette Hernandez Bilirubin [Mass/Vol] 0.3 mg/dL Normal 0.2-1.0 [facility] Comment on above: Performed By: #### M G, CMP, PHOS, BNP ####[facility] Prv[address]hdlbc[address] [place] [address]Dr. Ivette Hernandez Calcium [Mass/Vol] 8.3 mg/dL Critically low 8.5-10.1 Th e [facility] Comment on above: Performed By: #### M G, CMP, PHOS, BNP ####[facility] Efmrmikrbq[address] [place] [address]Dr. Ivette Hernandez Chloride [Moles/Vol] 100 mmol/L Normal 98-107 [facility] Comment on above: Performed By: #### M G, CMP, PHOS, BNP ####[facility] Vhfcqjdbas8[address] [place], [place] [address]Dr. Ivette Hernandez CO2 [Moles/Vol] 38.3 mmol/L Critically high 21.0-32.0 [facility] Comment on above: Performed By: #### M G, CMP, PHOS, BNP ####[facility] Vovhsdnumm6[address] [place], [place] [address]Dr. Ivette Hernandez Creatinine [Mass/Vol] 1.50 mg/dL Critically high 0.55-1.02 [facility] Comment on above: Performed By: #### M G, CMP, PHOS, BNP ####[facility] Ajfbjnvlka[address] [place] [address]Dr. Ivette Hernandez EGFR-AF CROATIAN 41 mL/min/1.73m2 Critically low >=60 [facility] Comment on above: Performed By: #### M G, CMP, PHOS, BNP ####[facility] Yqmwgtduze32[address] [place], [place] [address]Dr. Ivette Hernandez EGFR-NON AF CROATIAN 34 mL/min/1.73m2 Critically low >=60 [facility] Comment on above: Performed By: #### M G, CMP, PHOS, BNP ####[facility] Dhkjuxbskz[address] [place] [address]Dr. Ivette Hernandez Globulin (S) [Mass/Vol] 4.1 g/dL Normal [facility] Comment on above: Performed By: #### M G, CMP, PHOS, BNP ####[facility] T[address]rfbrnkgq[address] [place] [address]Dr. Ivette Hernandez Glucose [Mass/Vol] 114 mg/dL Critically high 74-106 [facility] Comment on above: Performed By: #### M G, CMP, PHOS, BNP ####[facility] Jkdqaxexnb[address] [place] [address]Dr. Ivette Hernandez Potassium [Moles/Vol] 3.7 mmol/L Normal 3.5-5.1 [facility] Comment on above: Performed By: #### M G, CMP, PHOS, BNP ####[facility] Qzhbvsvbvr7438[address] [place], [place] [address]Dr. Ivette Hernandez Protein [Mass/Vol] 6.4 g/dL Normal 6.4-8.2 [facility] Comment on above: Performed By: #### M G, CMP, PHOS, BNP ####[facility] Xxenwcisfc105[address] [place], [place] [address]Dr. Ivette Hernandez Sodium [Moles/Vol] 138 mmol/L Normal 136-145 [facility] Comment on above: Performed By: #### M G, CMP, PHOS, BNP ####[facility] Bbujkdljmj4539[address] [place], [place] [address]Dr. Ivette Hernandez Urea nitrogen [Mass/Vol] 20.0 mg/dL Critically high 7.0-18.0 [facility] Comment on above: Performed By: #### M G, CMP, PHOS, BNP ####[facility] Cflpssqrkj026[address] [place], [place] [address]Dr. Ivette Hernandez Urea nitrogen/Creatinine [Mass ratio] 13.3 mg/mg Normal [facility] Comment on above: Performed By: #### M G, CMP, PHOS, BNP ####[facility] Vkojrpmsqd05[address] [place], [place] [address]Dr. Ivette Hernandez AMMONIAon 03-09-2022 Ammonia (P) [Moles/Vol] 15 umol/L Normal 11-32 [facility] Comment on above: Performed By: #### A MM ####[facility] [address]zitfswatc[address] [place] [address]Dr. Ivette Hernandez BNPon 03-09-2022 Natriuretic peptide B (Bld) [Mass/Vol] 39842.0 pg/mL Critically high <=900.0 [facility] Comment on above: Performed By: #### B OPERATIONS LEAD, PHOS, MG, CMP ####[facility] Ralekipavq017[address] [place], [place] [address]Dr. Ivette Hernandez CBC AUTO DIFFon 03-09-2022 BASO # 0.0 103/ul Normal 0.0-0.1 [facility] Comment on above: Performed By: #### C BC ####[facility] Yudzdcnreg04[address] [place], [place] [address]Dr. Ivette Hernandez Basophils/100 WBC (Bld) 0.5 % Normal 0.2-2.0 [facility] Comment on above: Performed By: #### C BC ####[facility] Aoifoszcww7733[address] [place], [place] [address]Dr. Ivette Hernandez EO # 0.2 103/ul Normal 0.0-0.7 [facility] Comment on above: Performed By: #### C BC ####[facility] Xtuelueplj73[address] [place], [place] [address]Dr. Ivette Hernandez Eosinophils/100 WBC (Bld) 2.6 % Normal 0.9-7.0 [facility] Comment on above: Performed By: #### C BC ####[facility] Ewtvnskwsb[address]167[address] [place], [place] [address]Dr. Ivette Hernandez Erythrocyte distribution width (RBC) [Ratio] 14.2 % Normal 11.0-15.0 [facility] Comment on above: Performed By: #### C BC ####[facility] Vmzeklgrum1732[address] [place], [place] [address]Dr. Ivette Hernandez Hematocrit (Bld) [Volume fraction] 26.7 % Critically low 36.0-48.0 [facility] Comment on above: Performed By: #### C BC ####[facility] Hwppupusas[address] [place], [place] [address]Dr. Ivette Hernandez Hemoglobin (Bld) [Mass/Vol] 8.3 g/dL Critically low 12.0-16.0 [facility] Comment on above: Performed By: #### C BC ####[facility] Hwvtdkwicf[address] [place] [address]DrJesse Hernandez IG # 0.05 10e3/ul Critically high 0.00-0.03 [facility] Comment on above: Performed By: #### C BC ####[facility] Wpcqlsxvom[address] [place] [address]DrJesse Hernandez IG % 0.7 % Critically high 0.0-0.5 [facility] Comment on above: Performed By: #### C BC ####[facility] Fkrsutoljf[address] [place], [place] [address]DrJesse Hernandez LYMPH # 1.4 103/ul Normal 1.2-3.8 [facility] Comment on above: Performed By: #### C BC ####[facility] Qabrwezzin74[address] [place], [place] [address]DrJesse Hernandez Lymphocytes/100 WBC (Bld) 17.6 % Critically low 20.5-60.0 [facility] Comment on above: Performed By: #### C BC ####[facility] Bqgqdfbuma[address] [place], [place] [address]DrJesse Hernandez MANUAL DIFF REQ NO Normal [facility] Comment on above: Performed By: #### C BC ####[facility] Ebcdpqeisk13[address] [place], [place] [address]DrJesse Hernandez MCH (RBC) [Entitic mass] 28.6 pg Normal 26.7-34.0 [facility] Comment on above: Performed By: #### C BC ####[facility] Mlrsubccyd4[address] [place] [address]DrJesse Hernandez MCHC (RBC) [Mass/Vol] 31.1 g/dL Normal 29.9-35.2 [facility] Comment on above: Performed By: #### C BC ####[facility] Gfurzpkdww89[address] [place] [address]DrJesse Hernandez MCV (RBC) [Entitic vol] 92.1 fL Normal 81.0-99.0 [facility] Comment on above: Performed By: #### C BC ####[facility] Mzyfnqfwjx70[address] [place] [address]DrJesse Hernandez MONO # 0.5 103/ul Normal 0.3-0.8 [facility] Comment on above: Performed By: #### C BC ####[facility] Fdznggzlad1033 [place] [address]DrJesse Hernandez Monocytes/100 WBC (Bld) 6.2 % Normal 1.7-12.0 [facility] Comment on above: Performed By: #### C BC ####[facility] Kmxnjudkkq[address] [place], [place] [address]DrJesse Hernandez NEUT # 5.6 103/ul Normal 1.4-6.5 [facility] Comment on above: Performed By: #### C BC ####[facility] Yoklpwhapn[address] [place], [place] [address]DrJesse Hernandez Neutrophils/100 WBC (Bld) 72.4 % Normal 43.0-75.0 [facility] Comment on above: Performed By: #### C BC ####[facility] Yepwxxtxuf1982[address] [place], [place] [address]DrJesse Hernandez Platelet mean volume (Bld) [Entitic vol] 9.6 fL Normal 9.5-13.5 [facility] Comment on above: Performed By: #### C BC ####[facility] Ytyxnggvxv98[address] [place], [place] [address]Dr. Ivette Hernandez PLT 233 103/ul Normal 150-450 [facility] Comment on above: Performed By: #### C BC ####[facility] Mrgiupxqge88[address] [place], [place] [id number] Hernandez RBC 2.90 106/ul Critically low 4.20-5.40 [facility] Comment on above: Performed By: #### C BC ####[facility] Xgxexrzcha0254 [place] [id number] Hernandez WBC 7.7 103/ul Normal 4.0-11.0 [facility] Comment on above: Performed By: #### C BC ####[facility] Xdrvcagtge6094 [place] [id number]. Ivette Hernandez BASO # 0.0 103/ul Normal 0.0-0.1 [facility] Comment on above: Performed By: #### C BC ####[facility] Fxazltzwnj5301 [place] [id number]. Ivette David Basophils/100 WBC (Bld) 0.5 % Normal 0.2-2.0 [facility] Comment on above: Performed By: #### C BC ####[facility] Wcepifffdw9[address] [place], [place] [address]Dr. Ivette David EO # 0.2 103/ul Normal 0.0-0.7 [facility] Comment on above: Performed By: #### C BC ####[facility] Hknhujaccn6032[address] [place], [place] [address]Dr. Cherjun Hernandez Eosinophils/100 WBC (Bld) 2.8 % Normal 0.9-7.0 [facility] Comment on above: Performed By: #### C BC ####[facility] Zhpvhugooc16[address] [place], [place] [address]Dr. Ivette Hernandez Erythrocyte distribution width (RBC) [Ratio] 14.3 % Normal 11.0-15.0 [facility] Comment on above: Performed By: #### C BC ####[facility] Mxnakgxevh793[address] [place], [place] [address]Dr. Ivette Hernandez Hematocrit (Bld) [Volume fraction] 25.2 % Critically low 36.0-48.0 [facility] Comment on above: Performed By: #### C BC ####[facility] Rpionvcfvv0534[address] [place], [place] [address]Dr. Cherjun Hernandez Hemoglobin (Bld) [Mass/Vol] 7.8 g/dL Critically low 12.0-16.0 [facility] Comment on above: Performed By: #### C BC ####[facility] Uacaqdmsqi7[address] [place], [place] [address]Dr. Ivette Hernandez IG # 0.02 10e3/ul Normal 0.00-0.03 [facility] Comment on above: Performed By: #### C BC ####[facility] Bwvhzupcpy7[address] [place] [address]DrJesse Cherjun Hernandez IG % 0.3 % Normal 0.0-0.5 [facility] Comment on above: Performed By: #### C BC ####[facility] Wjexpwvbgj9568 [place] [address]DrJesse Ivette David LYMPH # 1.6 103/ul Normal 1.2-3.8 [facility] Comment on above: Performed By: #### C BC ####[facility] Phiktxlkbi2425[address] [place], [place] [address]DrJesse Cherjun Hernandez Lymphocytes/100 WBC (Bld) 24.5 % Normal 20.5-60.0 [facility] Comment on above: Performed By: #### C BC ####[facility] Htlwamjiza7[address] [place], [place] [address]DrJesse Cherjun Hernandez MANUAL DIFF REQ NO Normal [facility] Comment on above: Performed By: #### C BC ####[facility] Gkjnjerrew6864[address] [place], [place] [address]DrJesse Ivette David MCH (RBC) [Entitic mass] 28.4 pg Normal 26.7-34.0 [facility] Comment on above: Performed By: #### C BC ####[facility] Fzujqmdqbn9173[address] [place], [place] [address]DrJesse Ivette David MCHC (RBC) [Mass/Vol] 31.0 g/dL Normal 29.9-35.2 [facility] Comment on above: Performed By: #### C BC ####[facility] Gamiwnqzig05[address] [place], [place] [address]DrJesse Cherjun Hernandez MCV (RBC) [Entitic vol] 91.6 fL Normal 81.0-99.0 [facility] Comment on above: Performed By: #### C BC ####[facility] Eaotchosag9[address] [place], [place] [address]DrJesse Hernandez MONO # 0.5 103/ul Normal 0.3-0.8 [facility] Comment on above: Performed By: #### C BC ####[facility] Jvejjjbuzy57[address] [place] [id number]. Ivette Hernandez Monocytes/100 WBC (Bld) 7.8 % Normal 1.7-12.0 [facility] Comment on above: Performed By: #### C BC ####[facility] Uihlhihfwd64[address] [place] [phone]. Ivette Hernandez NEUT # 4.2 103/ul Normal 1.4-6.5 [facility] Comment on above: Performed By: #### C BC ####[facility] Jmvmqyokvq89[address] [place] [address]Dr. Ivette Hernandez Neutrophils/100 WBC (Bld) 64.1 % Normal 43.0-75.0 [facility] Comment on above: Performed By: #### C BC ####[facility] Jejksmmtjj9[address] [place] [address]Dr. Ivette Hernandez Platelet mean volume (Bld) [Entitic vol] 9.2 fL Critically low 9.5-13.5 [facility] Comment on above: Performed By: #### C BC ####[facility] Gpbknxkeug7[address] [place] [address]Dr. Ivetet Hernandez PLT 208 103/ul Normal 150-450 [facility] Comment on above: Performed By: #### C BC ####[facility] Akicgdcrxm4[address] [place] [address]Dr. Ivette Hernandez RBC 2.75 106/ul Critically low 4.20-5.40 [facility] Comment on above: Performed By: #### C BC ####[facility] Zyvporhhbl09[address] [place] [id number]. Ivette Hernandez WBC 6.5 103/ul Normal 4.0-11.0 [facility] Comment on above: Performed By: #### C BC ####[facility] Dwmbgdmmzq5[address] [place] [address]Dr. Ivette Hernandez MAGNESIUMon 03-09-2022 Magnesium [Mass/Vol] 1.7 mg/dL Critically low 1.8-2.4 [facility] Comment on above: Performed By: #### B OPERATIONS LEAD, PHOS, MG, CMP ####[facility] Ofjswhfsac[address] [place] [address]Dr. Ivette Hernandez MRI BRAIN WO CONon 2 MRI BRAIN WO CON Normal [facility] PHOSPHORUSon 03-09-2022 Phosphate [Mass/Vol] 3.5 mg/dL Normal 2.6-4.7 [facility] Comment on above: Performed By: #### B OPERATIONS LEAD, PHOS, MG, CMP ####[facility] Tkfwkgtfls35[address] [place] [address]Dr. Ivette Hernandez PROF 14(COMP METB)on 022 Albumin [Mass/Vol] 2.3 g/dL Critically low 3.4-5.0 [facility] Comment on above: Performed By: #### B OPERATIONS LEAD, PHOS, MG, CMP ####[facility] Ceuffmxdcg38[address] [place] [address]Dr. Ivette Hernandez Albumin/Globulin [Mass ratio] 0.6 {ratio} Normal [facility] Comment on above: Performed By: #### B OPERATIONS LEAD, PHOS, MG, CMP ####[facility] Hpwlmikbyj6396[address] [place], [place] [address]Dr. Ivette Hernandez ALP [Catalytic activity/Vol] 58 U/L Normal 46-116 [facility] Comment on above: Performed By: #### B OPERATIONS LEAD, PHOS, MG, CMP ####[facility] Etpdbqfhfd69[address] [place] [address]Dr. Ivette Hernandez ALT [Catalytic activity/Vol] 13 U/L Critically low 14-59 [facility] Comment on above: Performed By: #### B OPERATIONS LEAD, PHOS, MG, CMP ####[facility] Quuzrwfdsf27[address] [place] [address]Dr. Ivette Hernandez Anion gap [Moles/Vol] 5.6 mmol/L Normal [facility] Comment on above: Performed By: #### B OPERATIONS LEAD, PHOS, MG, CMP ####[facility] Ngkdtunrrc29[address] [place] [address]Dr. Ivette eHrnandez AST [Catalytic activity/Vol] 16 U/L Normal 15-37 [facility] Comment on above: Performed By: #### B OPERATIONS LEAD, PHOS, MG, CMP ####[facility] Wrvtnaucwo4[address] [place] [address]Dr. Ivette Hernandez Bilirubin [Mass/Vol] 0.4 mg/dL Normal 0.2-1.0 [facility] Comment on above: Performed By: #### B OPERATIONS LEAD, PHOS, MG, CMP ####[facility] Dleavylvlw7102[address] [place], [place] [address]Dr. Ivette Hernandez Calcium [Mass/Vol] 7.9 mg/dL Critically low 8.5-10.1 [facility] Comment on above: Performed By: #### B OPERATIONS LEAD, PHOS, MG, CMP ####[facility] Lsltbcgmgb3[address] [place], [place] [address]Dr. Ivette Hernandez Chloride [Moles/Vol] 99 mmol/L Normal 98-107 [facility] Comment on above: Performed By: #### B OPERATIONS LEAD, PHOS, MG, CMP ####[facility] Vrfwiaukau[address] [place], [place] [address]Dr. Ivette Hernandez CO2 [Moles/Vol] 40.2 mmol/L Critically high 21.0-32.0 [facility] Comment on above: Performed By: #### B OPERATIONS LEAD, PHOS, MG, CMP ####[facility] Maggrfdqkq365[address] [place], [place] [address]Dr. Ivette Hernandez Creatinine [Mass/Vol] 1.47 mg/dL Critically high 0.55-1.02 [facility] Comment on above: Performed By: #### B OPERATIONS LEAD, PHOS, MG, CMP ####[facility] Bbqinoutkw1412[address] [place], [place] [address]Dr. Ivette Hernandez EGFR-AF CROATIAN 42 mL/min/1.73m2 Critically low >=60 [facility] Comment on above: Performed By: #### B OPERATIONS LEAD, PHOS, MG, CMP ####[facility] Lnenotcmbc2943[address] [place], [place] [address]Dr. Ivette Hernandez EGFR-NON AF CROATIAN 35 mL/min/1.73m2 Critically low >=60 [facility] Comment on above: Performed By: #### B OPERATIONS LEAD, PHOS, MG, CMP ####[facility] Jvbreqdknq86[address] [place] [address]Dr. Ivette Hernandez Globulin (S) [Mass/Vol] 4.0 g/dL Normal [facility] Comment on above: Performed By: #### B OPERATIONS LEAD, PHOS, MG, CMP ####[facility] Pibgepapkr[address] [place] [address]Dr. Cherlan Hernandez Glucose [Mass/Vol] 100 mg/dL Normal 74-106 [facility] Comment on above: Performed By: #### B OPERATIONS LEAD, PHOS, MG, CMP ####[facility] Bqhkamxwdt30[address] [place], [place] [address]Dr. Ivette Hernandez Potassium [Moles/Vol] 3.8 mmol/L Normal 3.5-5.1 [facility] Comment on above: Performed By: #### B OPERATIONS LEAD, PHOS, MG, CMP ####[facility] Pnyogrzccm4316[address] [place], [place] [address]Dr. Cherlan Hernandez Protein [Mass/Vol] 6.3 g/dL Critically low 6.4-8.2 [facility] Comment on above: Performed By: #### B OPERATIONS LEAD, PHOS, MG, CMP ####[facility] Xueclvrfcq38[address] [place] [address]Dr. Cherlan Hernandez Sodium [Moles/Vol] 141 mmol/L Normal 136-145 [facility] Comment on above: Performed By: #### B OPERATIONS LEAD, PHOS, MG, CMP ####[facility] Wafytvlqug37[address] [place] [address]Dr. Cherlan Hernandez Urea nitrogen [Mass/Vol] 19.0 mg/dL Critically high 7.0-18.0 [facility] Comment on above: Performed By: #### B OPERATIONS LEAD, PHOS, MG, CMP ####[facility] Soninufrii2[address] [place] [address]Dr. Ivette Hernandez Urea nitrogen/Creatinine [Mass ratio] 12.9 mg/mg Normal [facility] Comment on above: Performed By: #### B OPERATIONS LEAD, PHOS, MG, CMP ####[facility] Ziktwncsru79[address] [place] [address]Dr. Ivette Hernandez BNPon 03-08-2022 Natriuretic peptide B (Bld) [Mass/Vol] 01547.0 pg/mL Critically high <=900.0 [facility] Comment on above: Performed By: #### B OPERATIONS LEAD, CMP, HSTROPN ####[facility] Aptqnyizek12[address] [place], [place] [address]Dr. Ivette David CBC AUTO DIFFon 03-08-2022 BASO # 0.0 103/ul Normal 0.0-0.1 [facility] Comment on above: Performed By: #### C BC ####[facility] Bnmiphirif6676[address] [place], [place] [address]Dr. Ivette Hernandez Basophils/100 WBC (Bld) 0.4 % Normal 0.2-2.0 [facility] Comment on above: Performed By: #### C BC ####[facility] Oowlnujeiv909[address] [place], [place] [address]Dr. Ivette Hernandez EO # 0.3 103/ul Normal 0.0-0.7 [facility] Comment on above: Performed By: #### C BC ####[facility] Qaxvsryqcb2785[address] [place], [place] [address]Dr. Ivette Hernandez Eosinophils/100 WBC (Bld) 2.5 % Normal 0.9-7.0 [facility] Comment on above: Performed By: #### C BC ####[facility] Cbkmdrymeg6104[address] [place], [place] [address]Dr. Ivette Hernandez Erythrocyte distribution width (RBC) [Ratio] 14.0 % Normal 11.0-15.0 [facility] Comment on above: Performed By: #### C BC ####[facility] Qsebpcvyke632[address] [place], [place] [address]Dr. Ivette Hernandez Hematocrit (Bld) [Volume fraction] 29.7 % Critically low 36.0-48.0 [facility] Comment on above: Performed By: #### C BC ####[facility] Skmfulrdvn1217 [place] [id number]. Ivette Hernandez Hemoglobin (Bld) [Mass/Vol] 9.2 g/dL Critically low 12.0-16.0 [facility] Comment on above: Performed By: #### C BC ####[facility] Suzwwwdaug3991 [place] [address]Dr. Ivette Hernandez IG # 0.08 10e3/ul Critically high 0.00-0.03 [facility] Comment on above: Performed By: #### C BC ####[facility] Vobxyfprnq9[address] [place] [address]Dr. Ivette Hernandez IG % 0.8 % Critically high 0.0-0.5 [facility] Comment on above: Performed By: #### C BC ####[facility] Pyjzivyfoe[address] [place], [place] [address]Dr. Ivette Hernandez LYMPH # 2.5 103/ul Normal 1.2-3.8 [facility] Comment on above: Performed By: #### C BC ####[facility] Hvwbqfvutn7189[address] [place], [place] [address]Dr. Ivette Hernandez Lymphocytes/100 WBC (Bld) 24.8 % Normal 20.5-60.0 [facility] Comment on above: Performed By: #### C BC ####[facility] Xevmlkwuvr6426[address] [place], [place] [address]Dr. Ivette Hernandez MANUAL DIFF REQ NO Normal [facility] Comment on above: Performed By: #### C BC ####[facility] Pcbamwlwdd35[address] [place], [place] [address]Dr. Ivette Hernandez MCH (RBC) [Entitic mass] 28.5 pg Normal 26.7-34.0 [facility] Comment on above: Performed By: #### C BC ####[facility] Ehbultmdkf965[address] [place], [place] [address]Dr. Ivette Hernandez MCHC (RBC) [Mass/Vol] 31.0 g/dL Normal 29.9-35.2 [facility] Comment on above: Performed By: #### C BC ####[facility] Kjnyfgcieh6827 [place] [id number]. Ivette Hernandez MCV (RBC) [Entitic vol] 92.0 fL Normal 81.0-99.0 [facility] Comment on above: Performed By: #### C BC ####[facility] Ptlxskawxf8491 [place] [id number]. Ivette Hernandez MONO # 0.6 103/ul Normal 0.3-0.8 [facility] Comment on above: Performed By: #### C BC ####[facility] Yjbruasbrd4575 [place] [phone]. Ivette Hernandez Monocytes/100 WBC (Bld) 6.3 % Normal 1.7-12.0 [facility] Comment on above: Performed By: #### C BC ####[facility] Fnurehlpim0035 [place] [address]Dr. Ivette Hernandez NEUT # 6.6 103/ul Critically high 1.4-6.5 [facility] Comment on above: Performed By: #### C BC ####[facility] Nwunwuntip[address] [place], [place] [address]Dr. Ivette Hernandez Neutrophils/100 WBC (Bld) 65.2 % Normal 43.0-75.0 [facility] Comment on above: Performed By: #### C BC ####[facility] Pmvfsygwtf0134 [place] [phone]. Ivette Hernandez Platelet mean volume (Bld) [Entitic vol] 9.7 fL Normal 9.5-13.5 [facility] Comment on above: Performed By: #### C BC ####[facility] Oxduvlmmlp7410 [place] [phone]. Ivette Hernandez PLT 328 103/ul Normal 150-450 [facility] Comment on above: Performed By: #### C BC ####[facility] Rbubvapqfr8675 [place] [phone]. Ivette Hernandez RBC 3.23 106/ul Critically low 4.20-5.40 [facility] Comment on above: Performed By: #### C BC ####[facility] Euqammmhfw8283 [place] [id number]. Ivette Hernandez WBC 10.1 103/ul Normal 4.0-11.0 [facility] Comment on above: Performed By: #### C BC ####[facility] Ejjlvefoae4233 [place] [phone]. Ivette Hernandez BASO # 0.0 103/ul Normal 0.0-0.1 [facility] Comment on above: Performed By: #### C BC ####[facility] Xfkpnqimsn2115[address] [place], [place] [address]Dr. Ivette Hernandez Basophils/100 WBC (Bld) 0.4 % Normal 0.2-2.0 [facility] Comment on above: Performed By: #### C BC ####[facility] Sagdcsdwzs0968[address] [place], [place] [address]Dr. Ivette Hernandez EO # 0.2 103/ul Normal 0.0-0.7 [facility] Comment on above: Performed By: #### C BC ####[facility] Tbdfbxsemx6625[address] [place], [place] [address]Dr. Ivette Hernandez Eosinophils/100 WBC (Bld) 2.9 % Normal 0.9-7.0 [facility] Comment on above: Performed By: #### C BC ####[facility] Ifmrrkttxz3127[address] [place], [place] [address]Dr. Ivette Hernandez Erythrocyte distribution width (RBC) [Ratio] 14.2 % Normal 11.0-15.0 [facility] Comment on above: Performed By: #### C BC ####[facility] Dfvxemccie5[address] [place], [place] [address]Dr. Ivette Hernandez Hematocrit (Bld) [Volume fraction] 27.7 % Critically low 36.0-48.0 [facility] Comment on above: Performed By: #### C BC ####[facility] Wtcdwqrrse4625[address] [place], [place] [address]Dr. Ivette Hernandez Hemoglobin (Bld) [Mass/Vol] 8.5 g/dL Critically low 12.0-16.0 [facility] Comment on above: Performed By: #### C BC ####[facility] Rznhrqzgwc8822 [place] [id number]. Cherjun Hernandez IG # 0.04 10e3/ul Critically high 0.00-0.03 [facility] Comment on above: Performed By: #### C BC ####[facility] Khbggcemcl58[address] [place] [address]Dr. Ivette Hernandez IG % 0.5 % Normal 0.0-0.5 [facility] Comment on above: Performed By: #### C BC ####[facility] Nkjavkiwgv3070 [place] [address]Dr. Ivette Hernandez LYMPH # 2.1 103/ul Normal 1.2-3.8 [facility] Comment on above: Performed By: #### C BC ####[facility] Uddbxdagmd6087 [place] [address]Dr. Ivette Hernandez Lymphocytes/100 WBC (Bld) 27.3 % Normal 20.5-60.0 [facility] Comment on above: Performed By: #### C BC ####[facility] Pqajjgiljx04[address] [place] [address]Dr. Ivette Hernandez MANUAL DIFF REQ NO Normal [facility] Comment on above: Performed By: #### C BC ####[facility] Ciahnjgudv0[address] [place] [address]Dr. Ivette David MCH (RBC) [Entitic mass] 28.1 pg Normal 26.7-34.0 [facility] Comment on above: Performed By: #### C BC ####[facility] Ohqeivrnxx16[address] [place] [address]Dr. Ivette David MCHC (RBC) [Mass/Vol] 30.7 g/dL Normal 29.9-35.2 [facility] Comment on above: Performed By: #### C BC ####[facility] Zmltlsbjyf2832 [place] [address]Dr. Ivette David MCV (RBC) [Entitic vol] 91.4 fL Normal 81.0-99.0 [facility] Comment on above: Performed By: #### C BC ####[facility] Ldalxmcmjj5794 [place] [phone]. Ivette Hernandez MONO # 0.5 103/ul Normal 0.3-0.8 [facility] Comment on above: Performed By: #### C BC ####[facility] Iueylnoqkz6980 [place] [phone]. Ivette Hernandez Monocytes/100 WBC (Bld) 6.1 % Normal 1.7-12.0 [facility] Comment on above: Performed By: #### C BC ####[facility] Ddjfughlbj3238 [place] [phone]. Ivette Hernandez NEUT # 4.9 103/ul Normal 1.4-6.5 [facility] Comment on above: Performed By: #### C BC ####[facility] Lqlzpjcvcy589[address] [place], [place] [address]Dr. Ivette Hernandez Neutrophils/100 WBC (Bld) 62.8 % Normal 43.0-75.0 [facility] Comment on above: Performed By: #### C BC ####[facility] Ansqluhoep05[address] [place] [address]Dr. Ivette Hernandez Platelet mean volume (Bld) [Entitic vol] 9.7 fL Normal 9.5-13.5 [facility] Comment on above: Performed By: #### C BC ####[facility] Sulfzxrufu[address] [place], [place] [id number]. Ivette David PLT 227 103/ul Normal 150-450 [facility] Comment on above: Performed By: #### C BC ####[facility] Jzhvbrtngh[address] [place], [place] [address]Dr. Ivette Hernandez RBC 3.03 106/ul Critically low 4.20-5.40 [facility] Comment on above: Performed By: #### C BC ####[facility] Rymqcowijj[address] [place], [place] [address]Dr. Ivette David WBC 7.8 103/ul Normal 4.0-11.0 [facility] Comment on above: Performed By: #### C BC ####[facility] Pytdcuxdml6[address] [place], [place] [address]DrJesse Hernandez CT HEAD WO CONon 03-08-2022 CT HEAD WO CON Normal [facility] CTA HEAD WO W CONon 03-08-20 CTA HEAD WO W CON Normal [facility]on SARS-CoV-2 (COVID-19) RNA MARRY+probe Ql (Unsp spec) Not detected Normal NOT DETECTED [facility] Comment on above: Result Comment: When diagnostic [...] for this test is supported by the [employer] of [employer] and Human Service's [...] be used). Performed By: #### C VDTBH ####[facility] V[address]wipspik[address] [place] [id number]. Ivette Hernandez PROF 14(COMP METB)on 022 Albumin [Mass/Vol] 2.6 g/dL Critically low 3.4-5.0 [facility] Comment on above: Performed By: #### B OPERATIONS LEAD, CMP, HSTROPN ####[facility] Mvmzzkinwc[address] [place], [place] [address]AlJesse Hernandez Albumin/Globulin [Mass ratio] 0.6 {ratio} Normal [facility] Comment on above: Performed By: #### B OPERATIONS LEAD, CMP, HSTROPN ####[facility] Djcixgaywp3658 [place], [place] [address]BtJesse Hernandez ALP [Catalytic activity/Vol] 68 U/L Normal 46-116 [facility] Comment on above: Performed By: #### B OPERATIONS LEAD, CMP, HSTROPN ####[facility] Ypbvzigiyd[address] [place] [address]Dr. Ivette Hernandez ALT [Catalytic activity/Vol] 16 U/L Normal 14-59 [facility] Comment on above: Performed By: #### B OPERATIONS LEAD, CMP, HSTROPN ####[facility] Smfysbgpnc[address] [place] [address]Dr. Ivette Hernandez Anion gap [Moles/Vol] 6.8 mmol/L Normal [facility] Comment on above: Performed By: #### B OPERATIONS LEAD, CMP, HSTROPN ####[facility] Wkuqatswsl[address] [place], [place] [address]Dr. Ivette Hernandez AST [Catalytic activity/Vol] 18 U/L Normal 15-37 [facility] Comment on above: Performed By: #### B OPERATIONS LEAD, CMP, HSTROPN ####[facility] Gabohzowgi[address] [place], [place] [address]Dr. Ivette Hernandez Bilirubin [Mass/Vol] 0.5 mg/dL Normal 0.2-1.0 [facility] Comment on above: Performed By: #### B OPERATIONS LEAD, CMP, HSTROPN ####[facility] Cjhfowtmdg[address] [place], [place] [address]Dr. Ivette Hernandez Calcium [Mass/Vol] 8.2 mg/dL Critically low 8.5-10.1 [facility] Comment on above: Performed By: #### B OPERATIONS LEAD, CMP, HSTROPN ####[facility] Anhdbnomsb[address] [place], [place] [address]Dr. Ivette Hernandez Chloride [Moles/Vol] 97 mmol/L Critically low 98-107 [facility] Comment on above: Performed By: #### B OPERATIONS LEAD, CMP, HSTROPN ####[facility] Qclozlvgyj4[address] [place] [address]Dr. Ivette Hernandez CO2 [Moles/Vol] 37.9 mmol/L Critically high 21.0-32.0 [facility] Comment on above: Performed By: #### B OPERATIONS LEAD, CMP, HSTROPN ####[facility] Zicpuhccgm[address] [place] [address]Dr. Ivette Hernandez Creatinine [Mass/Vol] 1.65 mg/dL Critically high 0.55-1.02 [facility] Comment on above: Performed By: #### B OPERATIONS LEAD, CMP, HSTROPN ####[facility] Ooc[address]cmczd[address] [place] [address]Dr. Ivette Hernandez EGFR-AF CROATIAN 37 mL/min/1.73m2 Critically low >=60 [facility] Comment on above: Performed By: #### B OPERATIONS LEAD, CMP, HSTROPN ####[facility] Dcfdtlmmfu[address] [place], [place] [address]Dr. Ivette Hernandez EGFR-NON AF CROATIAN 30 mL/min/1.73m2 Critically low >=60 [facility] Comment on above: Performed By: #### B OPERATIONS LEAD, CMP, HSTROPN ####[facility] Skgueazxbb[address] [place], [place] [address]Dr. Ivette Hernandez Globulin (S) [Mass/Vol] 4.7 g/dL Normal [facility] Comment on above: Performed By: #### B OPERATIONS LEAD, CMP, HSTROPN ####[facility] Blzoxfekem[address] [place], [place] [address]Dr. Ivette Hernandez Glucose [Mass/Vol] 203 mg/dL Critically high 74-106 [facility] Comment on above: Performed By: #### B OPERATIONS LEAD, CMP, HSTROPN ####[facility] Bhjixhmnhp[address] [place], [place] [address]Dr. Ivette Hernandez Potassium [Moles/Vol] 3.7 mmol/L Normal 3.5-5.1 [facility] Comment on above: Performed By: #### B OPERATIONS LEAD, CMP, HSTROPN ####[facility] Aaydlvrsfb0[address] [place], [place] [address]Dr. Ivette Hernandez Protein [Mass/Vol] 7.3 g/dL Normal 6.4-8.2 [facility] Comment on above: Performed By: #### B OPERATIONS LEAD, CMP, HSTROPN ####[facility] Vdmozvcpth[address] [place] [address]Dr. Ivette Hernandez Sodium [Moles/Vol] 138 mmol/L Normal 136-145 [facility] Comment on above: Performed By: #### B OPERATIONS LEAD, CMP, HSTROPN ####[facility] Ydmlihghng5[address] [place] [address]Dr. Ivette Hernandez Urea nitrogen [Mass/Vol] 22.0 mg/dL Critically high 7.0-18.0 [facility] Comment on above: Performed By: #### B OPERATIONS LEAD, CMP, HSTROPN ####[facility] Piyibtnibx[address] [place] [address]Dr. Ivette Hernandez Urea nitrogen/Creatinine [Mass ratio] 13.3 mg/mg Normal [facility] Comment on above: Performed By: #### B OPERATIONS LEAD, CMP, HSTROPN ####[facility] Toszwtzttl[address] [place] [address]Dr. Ivette Hernandez PROF CHEM 8 (BAS METB)on Anion gap [Moles/Vol] 6.0 mmol/L Normal [facility] Comment on above: Performed By: #### B MP ####[facility] Bdmbeywayv[address] [place], [place] [address]Dr. Ivette Hernandez Calcium [Mass/Vol] 8.0 mg/dL Critically low 8.5-10.1 [facility] Comment on above: Performed By: #### B MP ####[facility] Cbzacklmoc[address] [place] [address]Dr. Ivette Hernandez Chloride [Moles/Vol] 98 mmol/L Normal 98-107 [facility] Comment on above: Performed By: #### B MP ####[facility] Npzoizcjem8[address] [place], [place] [address]Dr. Ivette Hernandez CO2 [Moles/Vol] 39.9 mmol/L Critically high 21.0-32.0 [facility] Comment on above: Performed By: #### B MP ####[facility] Vtfyrwhprr[address] [place], [place] [address]Dr. Ivette Hernandez Creatinine [Mass/Vol] 1.56 mg/dL Critically high 0.55-1.02 [facility] Comment on above: Performed By: #### B MP ####[facility] R[address]zbapgfss[address] [place] [address]Dr. Ivette Hernandez EGFR-AF CROATIAN 39 mL/min/1.73m2 Critically low >=60 [facility] Comment on above: Performed By: #### B MP ####[facility] Waoohotmef[address] [place] [address]Dr. Ivette Hernandez EGFR-NON AF CROATIAN 33 mL/min/1.73m2 Critically low >=60 [facility] Comment on above: Performed By: #### B MP ####[facility] Mgiapifthv[address] [place] [address]Dr. Ivette Hernandez Glucose [Mass/Vol] 143 mg/dL Critically high 74-106 [facility] Comment on above: Performed By: #### B MP ####[facility] Oezabdblzb[address] [place], [place] [address]Dr. Ivette Hernandez Potassium [Moles/Vol] 3.9 mmol/L Normal 3.5-5.1 [facility] Comment on above: Performed By: #### B MP ####[facility] Fzoewppstb[address] [place], [place] [address]Dr. Ivette Hernandez Sodium [Moles/Vol] 140 mmol/L Normal 136-145 [facility] Comment on above: Performed By: #### B MP ####[facility] Nqgkwfnisc9[address] [place], [place] [address]Dr. Ivette Hernandez Urea nitrogen [Mass/Vol] 23.0 mg/dL Critically high 7.0-18.0 [facility] Comment on above: Performed By: #### B MP ####[facility] Bjyidjkgyj20[address] [place], [place] [address]Dr. Ivette Hernandez Urea nitrogen/Creatinine [Mass ratio] 14.7 mg/mg Normal [facility] Comment on above: Performed By: #### B MP ####[facility] Ybkqgvviff[address] [place], [place] [address]Dr. Ivette Hernandez PROTIMEon 03-08-2022 INR Coag (PPP) [Relative time] 1.11 {INR} Normal [facility] Comment on above: Performed By: #### P T, PTT ####[facility] [address] [place] [address]Dr. Ivette Hernandez INR GUIDELINES SEE BELOW Normal [facility] Comment on above: Result Comment: MELANIE RED INR: 2.0 - 3.0 CONDITIONS NOT LISTED BELOW 2.5 - 3.5 FOR PROSTHETIC HEART VALVE REPLACEMENT 2.5 - 3.5 RECURRENT THROMBOSIS Performed By: #### P T, PTT ####[facility] Fjqbsdiovg0[address] [place], [place] [address]Dr. Ivette Hernandez PT Coag (PPP) [Time] 11.9 s Critically high 9.0-11.6 [facility] Comment on above: Performed By: #### P T, PTT ####[facility] Ndutpkgmpc[address] [place], [place] [address]Dr. Ivette David PTTon 03-08-2022 aPTT Coag (Bld) [Time] 29.0 s Normal 22.3-36.2 [facility] Comment on above: Performed By: #### P T, PTT ####[facility] Xufuwkvfzl[address] [place], [place] [address]Dr. Ivette Hernandez TROPONIN, HIGH SENSITIVITYon 03-08-2022 HSTROP 74.2 pg/mL Critically high 4.0-51.3 [facility] Comment on above: Result Comment: CUT- OFF POINTS HAVE BEEN ESTABLISHED BASED ON THE FOURTH UNIVERSAL DEFINITIONS OF MYOCARDIALINFARCTION. THE UPPER REFERENCE LIMIT (URL) OF TROPONIN, DEFINED THE 99TH PERCENTILE OFcTnI DISTRIBUTION IN A REFERENCE POPULATION, HAS BEEN CONFIRMED THE DECISION THRESHOLDFOR SD DIAGNOSIS. Performed By: #### B OPERATIONS LEAD, CMP, HSTROPN ####[facility] Iwugooaasv[address] [place], [place] [address]Dr. Ivette Hernandez XR CHEST 1 Von 03-08-2022 XR CHEST 1 V Normal [facility] CBC AUTO DIFFon 03-07-2022 BASO # 0.0 103/ul Normal 0.0-0.1 [facility] Comment on above: Performed By: #### C BC ####[facility] [address]vkbzphe[address] [place] [id number]. Ivette Hernandez Basophils/100 WBC (Bld) 0.5 % Normal 0.2-2.0 [facility] Comment on above: Performed By: #### C BC ####[facility] Peonnptcro[address] [place], [place] [id number]. Ivette Hernandez EO # 0.3 103/ul Normal 0.0-0.7 [facility] Comment on above: Performed By: #### C BC ####[facility] Xynlrlvrml[address] [place], [place] [address]Dr. Ivette Hernandez Eosinophils/100 WBC (Bld) 3.9 % Normal 0.9-7.0 [facility] Comment on above: Performed By: #### C BC ####[facility] Acwebwxwhf[address] [place], [place] [address]Dr. Ivette Hernandez Erythrocyte distribution width (RBC) [Ratio] 14.1 % Normal 11.0-15.0 [facility] Comment on above: Performed By: #### C BC ####[facility] Kwnzvaakup[address] [place], [place] [address]Dr. Ivette Hernandez Hematocrit (Bld) [Volume fraction] 26.9 % Critically low 36.0-48.0 [facility] Comment on above: Performed By: #### C BC ####[facility] Lrrhgetrie[address] [place], [place] [id number]. Ivette Hernandez Hemoglobin (Bld) [Mass/Vol] 8.1 g/dL Critically low 12.0-16.0 [facility] Comment on above: Performed By: #### C BC ####[facility] Kmpiinhwxd64[address] [place], [place] [address]Dr. Ivette Hernandez IG # 0.06 10e3/ul Critically high 0.00-0.03 [facility] Comment on above: Performed By: #### C BC ####[facility] Srfafkoewa[address] [place], [place] [address]Dr. Ivette Hernandez IG % 0.8 % Critically high 0.0-0.5 [facility] Comment on above: Performed By: #### C BC ####[facility] Djzanusvjz[address] [place] [id number]. Ivette Hernandez LYMPH # 1.7 103/ul Normal 1.2-3.8 [facility] Comment on above: Performed By: #### C BC ####[facility] Wgzeexqilk6[address] [place] [id number]. Ivette David Lymphocytes/100 WBC (Bld) 21.9 % Normal 20.5-60.0 [facility] Comment on above: Performed By: #### C BC ####[facility] N[address]idbbibqe[address] [place] [address]Dr. Cherjun Hernandez MANUAL DIFF REQ NO Normal [facility] Comment on above: Performed By: #### C BC ####[facility] Kcrdvxlujd[address] [place], [place] [address]Dr. Ivette David MCH (RBC) [Entitic mass] 28.2 pg Normal 26.7-34.0 [facility] Comment on above: Performed By: #### C BC ####[facility] Cqtkvraqjx[address] [place], [place] [address]Dr. Ivette Hernandez MCHC (RBC) [Mass/Vol] 30.1 g/dL Normal 29.9-35.2 [facility] Comment on above: Performed By: #### C BC ####[facility] B[address]lpndl[address] [place] [address]Dr. Ivette David MCV (RBC) [Entitic vol] 93.7 fL Normal 81.0-99.0 [facility] Comment on above: Performed By: #### C BC ####[facility] Oxveqxevtn[address] [place] [id number]. Ivette Hernandez MONO # 0.5 103/ul Normal 0.3-0.8 [facility] Comment on above: Performed By: #### C BC ####[facility] Lvrqdnsddc[address] [place], [place] [id number]. Ivette David Monocytes/100 WBC (Bld) 6.5 % Normal 1.7-12.0 [facility] Comment on above: Performed By: #### C BC ####[facility] Dejkltoaec[address] [place] [id number]. Ivette Hernandez NEUT # 5.3 103/ul Normal 1.4-6.5 [facility] Comment on above: Performed By: #### C BC ####[facility] G[address]acwxzohj[address] [place] [id number]. Ivette Hernandez Neutrophils/100 WBC (Bld) 66.4 % Normal 43.0-75.0 [facility] Comment on above: Performed By: #### C BC ####[facility] Jjmrygxkvi3[address] [place] [address]Dr. Ivette Hernandez Platelet mean volume (Bld) [Entitic vol] 9.9 fL Normal 9.5-13.5 [facility] Comment on above: Performed By: #### C BC ####[facility] Ntuwesddch[address] [place] [address]Dr. Ivette David PLT 229 103/ul Normal 150-450 [facility] Comment on above: Performed By: #### C BC ####[facility] Fxmoiaenua[address] [place], [place] [address]Dr. Ivette Hernandez RBC 2.87 106/ul Critically low 4.20-5.40 [facility] Comment on above: Performed By: #### C BC ####[facility] Oswuauhnfa[address] [place], [place] [address]Dr. Ivette Hernandez WBC 7.9 103/ul Normal 4.0-11.0 [facility] Comment on above: Performed By: #### C BC ####[facility] Rsqzwyyard[address] [place], [place] [address]Dr. Ivette David PROF CHEM 8 (BAS METB)on Anion gap [Moles/Vol] 2.9 mmol/L Normal [facility] Comment on above: Performed By: #### B MP ####[facility] Fafrumccks06[address] [place], [place] [address]Dr. Ivette David Calcium [Mass/Vol] 7.5 mg/dL Critically low 8.5-10.1 [facility] Comment on above: Performed By: #### B MP ####[facility] Gvvblmridg[address] [place] [address]Dr. Ivette Hernandez Chloride [Moles/Vol] 102 mmol/L Normal 98-107 [facility] Comment on above: Performed By: #### B MP ####[facility] Ztsuoqduli4[address] [place] [address]Dr. Ivette David CO2 [Moles/Vol] 41.1 mmol/L Critically high 21.0-32.0 [facility] Comment on above: Performed By: #### B MP ####[facility] Falhfsrasq[address] [place], [place] [address]Dr. Ivette Hernandez Creatinine [Mass/Vol] 1.58 mg/dL Critically high 0.55-1.02 [facility] Comment on above: Performed By: #### B MP ####[facility] Dvwiypwkut[address] [place], [place] [address]Dr. Ivette Hernandez EGFR-AF CROATIAN 39 mL/min/1.73m2 Critically low >=60 [facility] Comment on above: Performed By: #### B MP ####[facility] Ztzqfnydcf040[address] [place], [place] [address]Dr. Ivette David EGFR-NON AF CROATIAN 32 mL/min/1.73m2 Critically low >=60 [facility] Comment on above: Performed By: #### B MP ####[facility] Jtnnpntxad324[address] [place], [place] [address]Dr. Cherjun David Glucose [Mass/Vol] 115 mg/dL Critically high 74-106 [facility] [place] [facility] Comment on above: Performed By: #### B MP ####[facility] Vxiaaysbjf27[address] [place], [place] [address]Dr. Ivette Hernandez Potassium [Moles/Vol] 4.0 mmol/L Normal 3.5-5.1 [facility] Comment on above: Performed By: #### B MP ####[facility] Bzfreuupro60[address] [place], [place] [address]Dr. Ivette Hernanedz Sodium [Moles/Vol] 142 mmol/L Normal 136-145 [facility] Comment on above: Performed By: #### B MP ####[facility] Hzvcsdlgbt8837 [place] [id number]. Ivette David Urea nitrogen [Mass/Vol] 23.0 mg/dL Critically high 7.0-18.0 [facility] Comment on above: Performed By: #### B MP ####[facility] Uqwtdlzrgb[address] [place], [place] [address]Dr. Ivette Hernandez Urea nitrogen/Creatinine [Mass ratio] 14.6 mg/mg Normal [facility] Comment on above: Performed By: #### B MP ####[facility] Fdiapmosij4[address] [place], [place] [address]Dr. Cherjun Hernandez CBC AUTO DIFFon 03-06-2022 BASO # 0.0 103/ul Normal 0.0-0.1 [facility] Comment on above: Performed By: #### C BC ####[facility] Tdmgniedua[address] [place], [place] [address]Dr. Ivette Hernandez Basophils/100 WBC (Bld) 0.3 % Normal 0.2-2.0 [facility] Comment on above: Performed By: #### C BC ####[facility] Jjsjiviwla9[address] [place], [place] [address]Dr. Ivette David EO # 0.2 103/ul Normal 0.0-0.7 [facility] Comment on above: Performed By: #### C BC ####[facility] Ozjceizovd2137[address] [place], [place] [address]Dr. Ivette Hernandez Eosinophils/100 WBC (Bld) 2.4 % Normal 0.9-7.0 [facility] Comment on above: Performed By: #### C BC ####[facility] Jekczolbrx[address] [place], [place] [address]Dr. Cherjun Hernandez Erythrocyte distribution width (RBC) [Ratio] 14.3 % Normal 11.0-15.0 [facility] Comment on above: Performed By: #### C BC ####[facility] Ciuamotubd8[address] [place], [place] [address]Dr. Ivette Hernandez Hematocrit (Bld) [Volume fraction] 27.2 % Critically low 36.0-48.0 [facility] Comment on above: Performed By: #### C BC ####[facility] Restxvpfgm[address] [place] [address]Dr. Ivette Hernandez Hemoglobin (Bld) [Mass/Vol] 7.8 g/dL Critically low 12.0-16.0 [facility] Comment on above: Performed By: #### C BC ####[facility] Oqshnldabj[address] [place] [address]Dr. Ivette Hernandez IG # 0.07 10e3/ul Critically high 0.00-0.03 [facility] Comment on above: Performed By: #### C BC ####[facility] Bmisfqwdyc[address] [place] [address]Dr. Ivette Hernandez IG % 0.8 % Critically high 0.0-0.5 [facility] Comment on above: Performed By: #### C BC ####[facility] Xnornrmovh[address] [place], [place] [address]Dr. Ivette Hernandez LYMPH # 1.8 103/ul Normal 1.2-3.8 [facility] Comment on above: Performed By: #### C BC ####[facility] Qjntwrjmhe[address] [place], [place] [address]Dr. Cherjun Hernandez Lymphocytes/100 WBC (Bld) 21.2 % Normal 20.5-60.0 [facility] Comment on above: Performed By: #### C BC ####[facility] Jlaekmqfni66[address] [place], [place] [address]Dr. Ivette Hernandez MANUAL DIFF REQ NO Normal [facility] Comment on above: Performed By: #### C BC ####[facility] Gngmrzensf[address] [place], [place] [address]Dr. Ivette Hernandez MCH (RBC) [Entitic mass] 27.6 pg Normal 26.7-34.0 [facility] Comment on above: Performed By: #### C BC ####[facility] Dtklqluyot[address] [place] [address]Dr. Ivette Hernandez MCHC (RBC) [Mass/Vol] 28.7 g/dL Critically low 29.9-35.2 [facility] Comment on above: Performed By: #### C BC ####[facility] Yufzidyixm[address] [place] [address]Dr. Ivette Hernandez MCV (RBC) [Entitic vol] 96.1 fL Normal 81.0-99.0 [facility] Comment on above: Performed By: #### C BC ####[facility] Lttsjyiraj[address] [place] [address]Dr. Ivette Hernandez MONO # 0.6 103/ul Normal 0.3-0.8 [facility] Comment on above: Performed By: #### C BC ####[facility] Gpsswonrlt[address] [place] [address]Dr. Ivette David Monocytes/100 WBC (Bld) 6.8 % Normal 1.7-12.0 [facility] Comment on above: Performed By: #### C BC ####[facility] Bcuokahngw[address] [place], [place] [address]Dr. Ivette Hernandez NEUT # 5.9 103/ul Normal 1.4-6.5 [facility] Comment on above: Performed By: #### C BC ####[facility] Vvpyqwuxiz[address] [place], [place] [address]Dr. Cherjun Hernandez Neutrophils/100 WBC (Bld) 68.5 % Normal 43.0-75.0 [facility] Comment on above: Performed By: #### C BC ####[facility] Ybfgzssnac[address] [place], [place] [address]Dr. Ivette David Platelet mean volume (Bld) [Entitic vol] 9.9 fL Normal 9.5-13.5 [facility] Comment on above: Performed By: #### C BC ####[facility] Flzpwfjtau346[address] [place], [place] [address]Dr. Cherjun David PLT 193 103/ul Normal 150-450 [facility] Comment on above: Performed By: #### C BC ####[facility] [address]wsbkuzvo[address] [place] [id number]. Ivette Hernandez RBC 2.83 106/ul Critically low 4.20-5.40 [facility] Comment on above: Performed By: #### C BC ####[facility] Atlfakmwwx[address] [place] [address]Dr. Ivette Hernandez WBC 8.7 103/ul Normal 4.0-11.0 [facility] Comment on above: Performed By: #### C BC ####[facility] Cowqvhaxuh[address] [place] [address]Dr. Ivette Hernandez PROF CHEM 8 (BAS METB)on Anion gap [Moles/Vol] 2.7 mmol/L Normal [facility] Comment on above: Performed By: #### B MP ####[facility] Vsrvkafnek[address] [place] [address]Dr. Ivette Hernandez Calcium [Mass/Vol] 7.6 mg/dL Critically low 8.5-10.1 [facility] Comment on above: Performed By: #### B MP ####[facility] Mznuqxxmmi[address] [place], [place] [address]Dr. Ivette Hernandez Chloride [Moles/Vol] 103 mmol/L Normal 98-107 [facility] Comment on above: Performed By: #### B MP ####[facility] Wnjkovbiat[address] [place], [place] [address]Dr. Ivette Hernandez CO2 [Moles/Vol] 41.1 mmol/L Critically high 21.0-32.0 [facility] Comment on above: Performed By: #### B MP ####[facility] Yscuwfhzmq6[address] [place], [place] [address]Dr. Ivette Hernandez Creatinine [Mass/Vol] 1.61 mg/dL Critically high 0.55-1.02 [facility] Comment on above: Performed By: #### B MP ####[facility] Nzsnvlrokk[address] [place], [place] [address]Dr. Ivette Hernandez EGFR-AF CROATIAN 38 mL/min/1.73m2 Critically low >=60 [facility] Comment on above: Performed By: #### B MP ####[facility] Ciqudfjttr[address] [place], [place] [address]Dr. Ivette Hernandez EGFR-NON AF CROATIAN 31 mL/min/1.73m2 Critically low >=60 [facility] Comment on above: Performed By: #### B MP ####[facility] Hitceungwq[address] [place], [place] [address]Dr. Cherjun Hernandez Glucose [Mass/Vol] 124 mg/dL Critically high 74-106 [facility] Comment on above: Performed By: #### B MP ####[facility] Lwkxjrzgnf[address] [place], [place] [address]Dr. Ivette Hernandez Potassium [Moles/Vol] 3.8 mmol/L Normal 3.5-5.1 [facility] Comment on above: Performed By: #### B MP ####[facility] Pfohhvsgdr03[address] [place], [place] [address]Dr. Ivette Hernandez Sodium [Moles/Vol] 143 mmol/L Normal 136-145 [facility] Comment on above: Performed By: #### B MP ####[facility] Yjfpnsrwnc[address] [place], [place] [address]Dr. Ivette Hernandez Urea nitrogen [Mass/Vol] 26.0 mg/dL Critically high 7.0-18.0 [facility] Comment on above: Performed By: #### B MP ####[facility] Foqbhxvarr8[address] [place], [place] [address]Dr. Cherjun David Urea nitrogen/Creatinine [Mass ratio] 16.1 mg/mg Normal [facility] Comment on above: Performed By: #### B MP ####[facility] Tgqvkyjazc[address] [place], [place] [address]Dr. Ivette Hernandez BNPon 03-05-2022 Natriuretic peptide B (Bld) [Mass/Vol] 53337.0 pg/mL Critically high <=900.0 [facility] Comment on above: Performed By: #### H STROPN, BNP, CMP ####[facility] Qbmthvhpni225[address] [place], [place] [address]Dr. Ivette Hernandez CBC AUTO DIFFon 03-05-2022 BASO # 0.0 103/ul Normal 0.0-0.1 [facility] Comment on above: Performed By: #### C BC ####[facility] [address]ydn[address] [place] [id number]. Ivette Hernandez Basophils/100 WBC (Bld) 0.4 % Normal 0.2-2.0 [facility] Comment on above: Performed By: #### C BC ####[facility] Eddwoksaoa[address] [place] [id number]. Ivette Hernandez EO # 0.4 103/ul Normal 0.0-0.7 [facility] Comment on above: Performed By: #### C BC ####[facility] Nqerrxkxwm[address] [place], [place] [id number]. Ivette Hernandez Eosinophils/100 WBC (Bld) 3.1 % Normal 0.9-7.0 [facility] Comment on above: Performed By: #### C BC ####[facility] Kfasbrlzuo[address] [place], [place] [address]Dr. Ivette Hernandez Erythrocyte distribution width (RBC) [Ratio] 14.5 % Normal 11.0-15.0 [facility] Comment on above: Performed By: #### C BC ####[facility] Wktueuygne[address] [place], [place] [id number]. Ivette Hernandez Hematocrit (Bld) [Volume fraction] 25.3 % Critically low 36.0-48.0 [facility] Comment on above: Performed By: #### C BC ####[facility] Jjtvnoicxm[address] [place], [place] [id number]. Ivette Hernandez Hemoglobin (Bld) [Mass/Vol] 7.5 g/dL Critically low 12.0-16.0 [facility] Comment on above: Performed By: #### C BC ####[facility] V[address]blbkhji[address] [place] [id number]. Ivette Hernandez IG # 0.08 10e3/ul Critically high 0.00-0.03 [facility] Comment on above: Performed By: #### C BC ####[facility] Rrgrwmhool[address] [place], [place] [id number]. Ivette Hernandez IG % 0.7 % Critically high 0.0-0.5 [facility] Comment on above: Performed By: #### C BC ####[facility] Orytxcjjzm36[address] [place] [id number]. Ivette Hernandez LYMPH # 1.7 103/ul Normal 1.2-3.8 [facility] Comment on above: Performed By: #### C BC ####[facility] Ncyzdkslhi0319 [place], [place] [address]Dd. Ivette Hernandez Lymphocytes/100 WBC (Bld) 14.7 % Critically low 20.5-60.0 [facility] Comment on above: Performed By: #### C BC ####[facility] Hjlbmlueaf18[address] [place] [id number]. Ivette Hernandez MANUAL DIFF REQ NO Normal [facility] Comment on above: Performed By: #### C BC ####[facility] Fgniyixbvy45[address] [place] [phone]. Ivette David MCH (RBC) [Entitic mass] 27.9 pg Normal 26.7-34.0 [facility] Comment on above: Performed By: #### C BC ####[facility] Ujcmeropfj[address] [place] [id number]. Ivette Hernandez MCHC (RBC) [Mass/Vol] 29.6 g/dL Critically low 29.9-35.2 [facility] Comment on above: Performed By: #### C BC ####[facility] Fkomlguwxd216[address] [place] [id number]. Ivette Hernandez MCV (RBC) [Entitic vol] 94.1 fL Normal 81.0-99.0 [facility] Comment on above: Performed By: #### C BC ####[facility] Kxrwtagfoc08[address] [place] [id number]. Ivette Hernandez MONO # 0.9 103/ul Critically high 0.3-0.8 [facility] Comment on above: Performed By: #### C BC ####[facility] Qitrcacpab88[address] [place] [id number]. Ivette David Monocytes/100 WBC (Bld) 7.7 % Normal 1.7-12.0 [facility] Comment on above: Performed By: #### C BC ####[facility] Ecpjixrzlu6034 [place], [place] [address]Cp. Ivette Hernandez NEUT # 8.3 103/ul Critically high 1.4-6.5 [facility] Comment on above: Performed By: #### C BC ####[facility] Fcgfbxwvot0718 [place], [place] [address]Rh. Ivette Hernandez Neutrophils/100 WBC (Bld) 73.4 % Normal 43.0-75.0 [facility] Comment on above: Performed By: #### C BC ####[facility] Uyiptmnzhs38[address] [place] [id number]. Ivette Hernandez Platelet mean volume (Bld) [Entitic vol] 9.8 fL Normal 9.5-13.5 [facility] Comment on above: Performed By: #### C BC ####[facility] Cpuvicorek49[address] [place] [id number]. Ivette Hernandez PLT 256 103/ul Normal 150-450 [facility] Comment on above: Performed By: #### C BC ####[facility] Lhydjugbcj3364 [place] [phone]. Ivette Hernandez RBC 2.69 106/ul Critically low 4.20-5.40 [facility] Comment on above: Performed By: #### C BC ####[facility] Opakkshopd9[address] [place] [phone]. Ivette Hernandez WBC 11.3 103/ul Critically high 4.0-11.0 [facility] Comment on above: Performed By: #### C BC ####[facility] Zwbuyesoqf[address] [place], [place] [id number]. Ivette Hernandez [facility]on SARS-CoV-2 (COVID-19) RNA MARRY+probe Ql (Unsp spec) Not detected Normal NOT DETECTED [facility] Comment on above: Result Comment: When diagnostic [...] for this test is supported by the [employer] and Human Service's [...] be used). Performed By: #### C VDTBH ####[facility] Pzhgxzagjz[address] [place], [place] [address]Dr. Ivette Hernandez LACTATE/LACTIC ACIDon 2021 Lactate [Moles/Vol] 0.6 mmol/L Normal 0.4-1.9 [facility] Comment on above: Performed By: #### L ACT ####[facility] Kbiuwblaer[address] [place], [place] [address]Dr. Ivette Hernandez PROF 14(COMP METB)on 022 Albumin [Mass/Vol] 2.3 g/dL Critically low 3.4-5.0 [facility] Comment on above: Performed By: #### H STROPN, BNP, CMP ####[facility] Iuuejoqlxa[address] [place], [place] [address]Dr. Ivette Hernandez Albumin/Globulin [Mass ratio] 0.5 {ratio} Normal [facility] Comment on above: Performed By: #### H STROPN, BNP, CMP ####[facility] B[address]wuvxtohk20[address] [place], [place] [address]Dr. Ivette Hernandez ALP [Catalytic activity/Vol] 72 U/L Normal 46-116 [facility] Comment on above: Performed By: #### H STROPN, BNP, CMP ####[facility] Rflacpfdcm9[address] [place], [place] [address]Dr. Ivette Hernandez ALT [Catalytic activity/Vol] 15 U/L Normal 14-59 [facility] Comment on above: Performed By: #### H STROPN, BNP, CMP ####[facility] Dcqqqksyuy[address] [place] [address]Dr. Ivette Hernandez Anion gap [Moles/Vol] 5.3 mmol/L Normal [facility] Comment on above: Performed By: #### H STROPN, BNP, CMP ####[facility] Scizaevmzo0[address] [place] [address]Dr. Ivette Hernandez AST [Catalytic activity/Vol] 16 U/L Normal 15-37 [facility] Comment on above: Performed By: #### H STROPN, BNP, CMP ####[facility] Wbxsxntzoc5[address] [place] [address]Dr. Ivette Hernandez Bilirubin [Mass/Vol] 0.5 mg/dL Normal 0.2-1.0 [facility] Comment on above: Performed By: #### H STROPN, BNP, CMP ####[facility] Dmpfjlwiql03[address] [place], [place] [address]Dr. Ivette Hernandez Calcium [Mass/Vol] 7.8 mg/dL Critically low 8.5-10.1 [facility] Comment on above: Performed By: #### H STROPN, BNP, CMP ####[facility] Arxvklsjgf746[address] [place], [place] [address]Dr. Ivette Hernandez Chloride [Moles/Vol] 102 mmol/L Normal 98-107 [facility] Comment on above: Performed By: #### H STROPN, BNP, CMP ####[facility] Zqnxdscwqv432[address] [place], [place] [address]Dr. Ivette Hernanedz CO2 [Moles/Vol] 38.3 mmol/L Critically high 21.0-32.0 [facility] Comment on above: Performed By: #### H STROPN, BNP, CMP ####[facility] Vvdvwxmbec110[address] [place], [place] [address]Dr. Ivette Hernandez Creatinine [Mass/Vol] 1.50 mg/dL Critically high 0.55-1.02 [facility] Comment on above: Performed By: #### H STROPN, BNP, CMP ####[facility] Atqmdkmyib8364[address] [place], [place] [address]Dr. Ivette Hernandez EGFR-AF CROATIAN 41 mL/min/1.73m2 Critically low >=60 [facility] Comment on above: Performed By: #### H STROPN, BNP, CMP ####[facility] T[address]zcrniuq[address] [place] [address]Dr. Ivette Hernandez EGFR-NON AF CROATIAN 34 mL/min/1.73m2 Critically low >=60 [facility] Comment on above: Performed By: #### H STROPN, BNP, CMP ####[facility] Lvueekavpt4[address] [place] [address]Dr. Ivette Hernandez Globulin (S) [Mass/Vol] 4.3 g/dL Normal [facility] Comment on above: Performed By: #### H STROPN, BNP, CMP ####[facility] Rjvmmpuuak7[address] [place] [address]Dr. Ivette Hernandez Glucose [Mass/Vol] 138 mg/dL Critically high 74-106 [facility] [place] [facility] Comment on above: Performed By: #### H STROPN, BNP, CMP ####[facility] Bvzdbhpjpl20[address] [place], [place] [address]Dr. Ivette Hernandez Potassium [Moles/Vol] 3.6 mmol/L Normal 3.5-5.1 [facility] Comment on above: Performed By: #### H STROPN, BNP, CMP ####[facility] Imooozpxub4[address] [place], [place] [address]Dr. Ivette Hernandez Protein [Mass/Vol] 6.6 g/dL Normal 6.4-8.2 [facility] Comment on above: Performed By: #### H STROPN, BNP, CMP ####[facility] Oeeglcixiw[address] [place] [address]Dr. Ivette Hernandez Sodium [Moles/Vol] 142 mmol/L Normal 136-145 [facility] Comment on above: Performed By: #### H STROPN, BNP, CMP ####[facility] Wlxkfyrtmt6258 [place] [address]Dr. Ivette Hernandez Urea nitrogen [Mass/Vol] 24.0 mg/dL Critically high 7.0-18.0 [facility] Comment on above: Performed By: #### H STROPN, BNP, CMP ####[facility] Nyoesldlwk95[address] [place] [id number]. Ivette Hernandez Urea nitrogen/Creatinine [Mass ratio] 16.0 mg/mg Normal [facility] Comment on above: Performed By: #### H STROPN, BNP, CMP ####[facility] Jfnpdpoffl[address] [place] [address]Dr. Ivette Hernandez TROPONIN, HIGH SENSITIVITYon 03-05-2022 HSTROP 18.0 pg/mL Normal 4.0-51.3 [facility] Comment on above: Result Comment: CUT- OFF POINTS HAVE BEEN ESTABLISHED BASED ON THE FOURTH UNIVERSAL DEFINITIONS OF MYOCARDIALINFARCTION. THE UPPER REFERENCE LIMIT (URL) OF TROPONIN, DEFINED THE 99TH PERCENTILE OFcTnI DISTRIBUTION IN A REFERENCE POPULATION, HAS BEEN CONFIRMED THE DECISION THRESHOLDFOR SD DIAGNOSIS. Performed By: #### H STROPN, BNP, CMP ####[facility] Izlvoppjfc38[address] [place] [address]Dr. Ivette Hernandez XR CHEST 1 Von 03-05-2022 XR CHEST 1 V Normal [facility] CBC AUTO DIFFon 02-27-2022 BASO # 0.0 103/ul Normal 0.0-0.1 [facility] Comment on above: Performed By: #### C BC ####[facility] Cxxruzokyt59[address] [place] [address]Dr. Ivette Hernandez Basophils/100 WBC (Bld) 0.2 % Normal 0.2-2.0 [facility] Comment on above: Performed By: #### C BC ####[facility] Knoqhmqyfa10[address] [place] [address]Dr. Ivette Hernandez EO # 0.2 103/ul Normal 0.0-0.7 [facility] Comment on above: Performed By: #### C BC ####[facility] Zkltjwvboq5174 [place] [address]Dr. Ivette Hernandez Eosinophils/100 WBC (Bld) 1.9 % Normal 0.9-7.0 [facility] Comment on above: Performed By: #### C BC ####[facility] Dyeduyecrg45[address] [place] [address]Dr. Ivette Hernandez Erythrocyte distribution width (RBC) [Ratio] 14.0 % Normal 11.0-15.0 [facility] Comment on above: Performed By: #### C BC ####[facility] Wqxpfqqduy1680 [place] [address]Dr. Ivette Hernandez Hematocrit (Bld) [Volume fraction] 28.7 % Critically low 36.0-48.0 [facility] Comment on above: Performed By: #### C BC ####[facility] Nvyyqsppoh7[address] [place], [place] [address]Dr. Ivette Hernandez Hemoglobin (Bld) [Mass/Vol] 8.8 g/dL Critically low 12.0-16.0 [facility] Comment on above: Performed By: #### C BC ####[facility] Aqjwwrmgra27[address] [place], [place] [address]Dr. Cherjun Hernandez IG # 0.05 10e3/ul Critically high 0.00-0.03 [facility] Comment on above: Performed By: #### C BC ####[facility] Nyaqhvzyhi7249[address] [place], [place] [address]Dr. Ivette Hernandez IG % 0.5 % Normal 0.0-0.5 [facility] Comment on above: Performed By: #### C BC ####[facility] Gmodtmxlsg3043[address] [place], [place] [address]Dr. Ivette Hernandez LYMPH # 2.1 103/ul Normal 1.2-3.8 [facility] Comment on above: Performed By: #### C BC ####[facility] Mwjvpvayyp495[address] [place], [place] [address]Dr. Cherjun Hernandez Lymphocytes/100 WBC (Bld) 21.3 % Normal 20.5-60.0 [facility] Comment on above: Performed By: #### C BC ####[facility] Xsqenueroc1593[address] [place], [place] [address]Dr. Cherjun Hernandez MANUAL DIFF REQ NO Normal [facility] Comment on above: Performed By: #### C BC ####[facility] Qobegnkqxr5752 [place] [address]Dr. Ivette Hernandez MCH (RBC) [Entitic mass] 27.6 pg Normal 26.7-34.0 [facility] Comment on above: Performed By: #### C BC ####[facility] Rrdbzoxtwm0436 [place] [address]Dr. Ivette Hernandez MCHC (RBC) [Mass/Vol] 30.7 g/dL Normal 29.9-35.2 [facility] Comment on above: Performed By: #### C BC ####[facility] Rwzotwruaj1034[address] [place], [place] [address]Dr. Ivette David MCV (RBC) [Entitic vol] 90.0 fL Normal 81.0-99.0 [facility] Comment on above: Performed By: #### C BC ####[facility] Uicejqricr6544[address] [place], [place] [address]Dr. Ivette David MONO # 0.6 103/ul Normal 0.3-0.8 [facility] Comment on above: Performed By: #### C BC ####[facility] Afyfkisabc527[address] [place], [place] [address]Dr. Cherjun Hernandez Monocytes/100 WBC (Bld) 6.5 % Normal 1.7-12.0 [facility] Comment on above: Performed By: #### C BC ####[facility] Yahwoiafik9[address] [place], [place] [address]Dr. Ivette Hernandez NEUT # 6.7 103/ul Critically high 1.4-6.5 [facility] Comment on above: Performed By: #### C BC ####[facility] Zpnrsreycr324[address] [place], [place] [address]Dr. Ivette David Neutrophils/100 WBC (Bld) 69.6 % Normal 43.0-75.0 [facility] Comment on above: Performed By: #### C BC ####[facility] Ckuavrcvlc1672[address] [place], [place] [address]Dr. Ivette David Platelet mean volume (Bld) [Entitic vol] 9.6 fL Normal 9.5-13.5 [facility] Comment on above: Performed By: #### C BC ####[facility] Mskwxmykzz69[address] [place] [address]Dr. Ivette Hernandez PLT 236 103/ul Normal 150-450 [facility] Comment on above: Performed By: #### C BC ####[facility] Umegpdqrjq3476[address] [place], [place] [address]Dr. Ivette Hernandez RBC 3.19 106/ul Critically low 4.20-5.40 [facility] Comment on above: Performed By: #### C BC ####[facility] Wuqrxgufbm6027[address] [place], [place] [address]Dr. Ivette Hernandez WBC 9.6 103/ul Normal 4.0-11.0 [facility] Comment on above: Performed By: #### C BC ####[facility] Umoxwyigdf1917[address] [place], [place] [address]Dr. Ivette Hernandez GI PANEL (PCR)on 02-27-2022 Adenovirus F 40/41 Not detected Normal NOT DETECTED [facility] Comment on above: Performed By: #### G IPANEL ####[facility] Zarttvabuy998[address] [place], [place] [address]Dr. Ivette Hernandez Astrovirus Not detected Normal NOT DETECTED [facility] Comment on above: Performed By: #### G IPANEL ####[facility] Kqskwjcqle0996[address] [place], [place] [address]Dr. Ivette Hernandez C. Diff toxin A/B Detected Critically abnormal NOT DETECTED [facility] Comment on above: Performed By: #### G IPANEL ####[facility] Hjyuvjbuaz8407[address] [place], [place] [address]Dr. Ivette Hernandez Campylobacter Not detected Normal NOT DETECTED [facility] Comment on above: Performed By: #### G IPANEL ####[facility] Yotqpqaait110[address] [place], [place] [address]Dr. Ivette Hernandez Cryptosporidium Not detected Normal NOT DETECTED [facility] Comment on above: Performed By: #### G IPANEL ####[facility] Xxdpegyusb5344[address] [place], [place] [address]Dr. Ivette Hernandez Cyclos. Cayetanensis Not detected Normal NOT DETECTED [facility] Comment on above: Performed By: #### G IPANEL ####[facility] Agmpdkgktm0489[address] [place], [place] [address]Dr. Ivette Hernandez E. Coli O157 Not Applicable Normal Not Applicable [facility] Comment on above: Performed By: #### G IPANEL ####[facility] Brkdiqkntb6706[address] [place], [place] [address]Dr. Cherjun Hernandez E. histolytica Not detected Normal NOT DETECTED [facility] Comment on above: Performed By: #### G IPANEL ####[facility] Kzkyagzztv426[address] [place], [place] [address] Not detected Normal NOT DETECTED [facility] Comment on above: Performed By: #### G IPANEL ####[facility] Tjnnlmipea8288[address] [place], [place] [address]Dr. [facility] EIEC Not detected Normal NOT DETECTED [facility] Comment on above: Performed By: #### G IPANEL ####[facility] Prfhtupxvm8077[address] [place], [place] [address]Dr. Cherjun Hernandez EPEC Not detected Normal NOT DETECTED [facility] Comment on above: Performed By: #### G IPANEL ####[facility] Krootymjvc060[address] [place], [place] [address]Dr. jun Hernandez ETEC Not detected Normal NOT DETECTED [facility] Comment on above: Performed By: #### G IPANEL ####[facility] Kcvkacagdz2596[address] [place], [place] [address]Dr. Ivette Hernandez G. Lamblia Not detected Normal NOT DETECTED [facility] Comment on above: Performed By: #### G IPANEL ####[facility] Wkpmdejspb1492[address] [place], [place] [address]Dr. Ivette Hernandez GIPANEL CONTROLS PASSED Normal [facility] Comment on above: Performed By: #### G IPANEL ####[facility] Rquxttvxoq415[address] [place], [place] [address]Dr. Ivette Hernandez GIPNL GITA HEADER GI PANEL BACTERIA Normal [facility] Comment on above: Performed By: #### G IPANEL ####[facility] Spgdugfdwj9[address] [place] [address]Dr. Cherjun Hernandez [facility] ECOLI GI PANEL DIARRHEAGEN IC E.COLI / SHIGELLA Normal [facility] Comment on above: Performed By: #### G IPANEL ####[facility] Ncppxmukmd9158[address] [place], [place] [address]Dr. Cherjun Hernandez [facility] INFO SEE BELOW Normal [facility] Comment on above: Result Comment: EAEC - Enteroaggregative E. Coli EPEC- Enteropathogenic E. Coli ETEC- Enterotoxigenic E. Coli lt/st STEC- Shigella-like toxin-producing E. Coli stx1/stx2 EIEC- Shigella/Enteroinvasive E. Coli Performed By: #### G IPANEL ####[facility] Rebmtrjcbs12[address] [place], [place] [address]Dr. Ivette Hernandez GIPNLHD PARASITES GI PANEL PARASITES Normal [facility] Comment on above: Performed By: #### G IPANEL ####[facility] Ycwhrjktwz834[address] [place], [place] [address]Dr. Ivette Hernandez [facility] VIRUS GI PANEL VIRUSES Normal [facility] Comment on above: Performed By: #### G IPANEL ####[facility] Ulfozpicaj0509[address] [place], [place] [address]Dr. Ivette Hernandez Norovirus GI/GII Not detected Normal NOT DETECTED [facility] Comment on above: Performed By: #### G IPANEL ####[facility] Zcuuajbqar896[address] [place], [place] [address]Dr. Ivette Hernandez P. Shigelloides Not detected Normal NOT DETECTED [facility] Comment on above: Performed By: #### G IPANEL ####[facility] [place] Atixsfvt[address] [place], [place] [address]Dr. Ivette Hernandez Rotavirus A Not detected Normal NOT DETECTED [facility] Comment on above: Performed By: #### G IPANEL ####[facility] Ydsfqmevvt[address] [place], [place] [address]Dr. Ivette Hernandez Salmonella Not detected Normal NOT DETECTED [facility] Comment on above: Performed By: #### G IPANEL ####[facility] Lfozeoxxjh[address] [place], [place] [address]Dr. Ivette Hernandez Sapovirus Not detected Normal NOT DETECTED [facility] Comment on above: Performed By: #### G IPANEL ####[facility] Rnoiruoagz[address] [place], [place] [address]Dr. Ivette Hernandez STEC Not detected Normal NOT DETECTED [facility] Comment on above: Performed By: #### G IPANEL ####[facility] Isdzkhbvac[address] [place], [place] [address]Dr. Ivette Hernandez Vibrio Not detected Normal NOT DETECTED [facility] Comment on above: Performed By: #### G IPANEL ####[facility] Krvsmmqizl[address] [place], [place] [address]Dr. Ivette Hernandez Vibrio Cholera Not detected Normal NOT DETECTED [facility] Comment on above: Performed By: #### G IPANEL ####[facility] Awazivqmoy[address] [place], [place] [address]Dr. Ivette Hernandez Y. Enterocolitica Not detected Normal NOT DETECTED [facility] Comment on above: Performed By: #### G IPANEL ####[facility] C[address]wdqyjhz[address] [place], [place] [address]Dr. Ivette Hernandez OCC BLD IMMUNO SCREENon 02-01 OCCULT BLOOD Negative Normal NEGATIVE [facility] Comment on above: Performed By: #### O BSCRN ####[facility] Mxrflevhgc[address] [place], [place] [address]Dr. Ivette Hernandez PROF 14(COMP METB)on 022 Albumin [Mass/Vol] 2.4 g/dL Critically low 3.4-5.0 [facility] Comment on above: Performed By: #### C MP ####[facility] Pcwzglmhit[address] [place], [place] [address]Dr. Ivette Hernandez Albumin/Globulin [Mass ratio] 0.6 {ratio} Normal [facility] Comment on above: Performed By: #### C MP ####[facility] [address]dw[address] [place] [address]Dr. Ivette Hernandez ALP [Catalytic activity/Vol] 68 U/L Normal 46-116 [facility] Comment on above: Performed By: #### C MP ####[facility] Sxd[address]xceu[address] [place] [id number]. Ivette Hernandez ALT [Catalytic activity/Vol] 12 U/L Critically low 14-59 [facility] Comment on above: Performed By: #### C MP ####[facility] Belevzjxla[address] [place] [id number]. Ivette Hernandez Anion gap [Moles/Vol] 10.3 mmol/L Normal [facility] Comment on above: Performed By: #### C MP ####[facility] Dfjtuzmrlg1142 [place] [id number]. Ivette Hernandez AST [Catalytic activity/Vol] 15 U/L Normal 15-37 [facility] Comment on above: Performed By: #### C MP ####[facility] Ascfpxmzhd67[address] [place] [address]Dr. Ivette Hernandez Bilirubin [Mass/Vol] 0.4 mg/dL Normal 0.2-1.0 [facility] Comment on above: Performed By: #### C MP ####[facility] Hjftqqadpi[address] [place] [address]Dr. Ivette Hernandez Calcium [Mass/Vol] 7.5 mg/dL Critically low 8.5-10.1 [facility] Comment on above: Performed By: #### C MP ####[facility] Uhzxsyiwnu5[address] [place] [address]Dr. Cherjun David Chloride [Moles/Vol] 102 mmol/L Normal 98-107 [facility] Comment on above: Performed By: #### C MP ####[facility] Joycmoegti[address] [place] [id number]. Ivette Hernandez CO2 [Moles/Vol] 33.8 mmol/L Critically high 21.0-32.0 [facility] Comment on above: Performed By: #### C MP ####[facility] Sc[address]ck[address] [place], [place] [id number]. Ivette David Creatinine [Mass/Vol] 1.35 mg/dL Critically high 0.55-1.02 [facility] Comment on above: Performed By: #### C MP ####[facility] Xsaipzqvmz4[address] [place] [id number]. Ivette Hernandez EGFR-AF CROATIAN 47 mL/min/1.73m2 Critically low >=60 [facility] Comment on above: Performed By: #### C MP ####[facility] Jraojdhrqq9[address] [place] [id number]. Ivette Hernandez EGFR-NON AF CROATIAN 38 mL/min/1.73m2 Critically low >=60 [facility] Comment on above: Performed By: #### C MP ####[facility] Ncauiptdwc[address] [place] [address]Dr. Ivette Hernandez Globulin (S) [Mass/Vol] 4.0 g/dL Normal [facility] Comment on above: Performed By: #### C MP ####[facility] Iurmjhspue[address] [place], [place] [address]Dr. Ivette Hernandez Glucose [Mass/Vol] 142 mg/dL Critically high 74-106 [facility] Comment on above: Performed By: #### C MP ####[facility] Wsuyqomfsn[address] [place] [address]Dr. Ivette Hernandez Potassium [Moles/Vol] 3.1 mmol/L Critically low 3.5-5.1 [facility] Comment on above: Performed By: #### C MP ####[facility] Kxhhvnodli[address] [place], [place] [address]Dr. Ivette Hernandez Protein [Mass/Vol] 6.4 g/dL Normal 6.4-8.2 [facility] Comment on above: Performed By: #### C MP ####[facility] Xxzraajbbx[address] [place], [place] [address]Dr. Ivette Hernandez Sodium [Moles/Vol] 143 mmol/L Normal 136-145 [facility] Comment on above: Performed By: #### C MP ####[facility] Nhqzolexob[address] [place], [place] [address]Dr. Ivette Hernandez Urea nitrogen [Mass/Vol] 32.0 mg/dL Critically high 7.0-18.0 [facility] Comment on above: Performed By: #### C MP ####[facility] Jmxpbewxat56[address] [place] [id number]. Ivette Hernandez Urea nitrogen/Creatinine [Mass ratio] 23.7 mg/mg Normal [facility] Comment on above: Performed By: #### C MP ####[facility] Sbkqkpqtiw4138 [place] [phone]. Ivette David CBC AUTO DIFFon 02-26-2022 BASO # 0.0 103/ul Normal 0.0-0.1 [facility] Comment on above: Performed By: #### C BC ####[facility] Vamjjweobp[address] [place], [place] [address]Dr. Cherjun Hernandez Basophils/100 WBC (Bld) 0.0 % Critically low 0.2-2.0 [facility] Comment on above: Performed By: #### C BC ####[facility] Xamezehtnt[address] [place], [place] [address]Dr. Cherjun Hernandez EO # 0.0 103/ul Normal 0.0-0.7 [facility] Comment on above: Performed By: #### C BC ####[facility] Bsaobonfsw[address] [place], [place] [address]Dr. Ivette David Eosinophils/100 WBC (Bld) 0.0 % Critically low 0.9-7.0 [facility] Comment on above: Performed By: #### C BC ####[facility] Cnlvzoignc9225[address] [place], [place] [address]Dr. Ivette Hernandez Erythrocyte distribution width (RBC) [Ratio] 13.9 % Normal 11.0-15.0 [facility] Comment on above: Performed By: #### C BC ####[facility] [address]muixeapt[address] [place], [place] [id number]. Ivette Hernandez Hematocrit (Bld) [Volume fraction] 25.9 % Critically low 36.0-48.0 [facility] Comment on above: Performed By: #### C BC ####[facility] Fddcixueya78[address] [place], [place] [address]Dr. Ivette David Hemoglobin (Bld) [Mass/Vol] 8.2 g/dL Critically low 12.0-16.0 [facility] Comment on above: Performed By: #### C BC ####[facility] Bbtitvcmxh7[address] [place] [address]DrJesse Hernandez IG # 0.05 10e3/ul Critically high 0.00-0.03 [facility] Comment on above: Performed By: #### C BC ####[facility] Jasyrkfxlf8[address] [place] [address]DrJesse Hernandez IG % 0.9 % Critically high 0.0-0.5 [facility] Comment on above: Performed By: #### C BC ####[facility] Hzgjjjyudx30[address] [place], [place] [address]DrJesse Hernandez LYMPH # 1.0 103/ul Critically low 1.2-3.8 [facility] Comment on above: Performed By: #### C BC ####[facility] Gauxnardcy[address] [place], [place] [address]DrJesse Hernandez Lymphocytes/100 WBC (Bld) 17.4 % Critically low 20.5-60.0 [facility] Comment on above: Performed By: #### C BC ####[facility] Fnnequjddo[address] [place], [place] [address]DrJesse Hernandez MANUAL DIFF REQ NO Normal [facility] Comment on above: Performed By: #### C BC ####[facility] Lisnusgnef[address] [place], [place] [address]DrJesse Hernandez MCH (RBC) [Entitic mass] 28.3 pg Normal 26.7-34.0 [facility] Comment on above: Performed By: #### C BC ####[facility] Li[address]tyebxev[address] [place], [place] [address]DrJesse Cherjun Hernandez MCHC (RBC) [Mass/Vol] 31.7 g/dL Normal 29.9-35.2 [facility] Comment on above: Performed By: #### C BC ####[facility] Wqzqrebrew[address] [place] [address]DrJesse Hernandez MCV (RBC) [Entitic vol] 89.3 fL Normal 81.0-99.0 [facility] Comment on above: Performed By: #### C BC ####[facility] Mjxuxapslr[address] [place] [address]Dr. Ivette Hernandez MONO # 0.2 103/ul Critically low 0.3-0.8 [facility] Comment on above: Performed By: #### C BC ####[facility] Jmivspmqto4[address] [place] [address]Dr. Ivette Hernandez Monocytes/100 WBC (Bld) 3.6 % Normal 1.7-12.0 [facility] Comment on above: Performed By: #### C BC ####[facility] Qmenbicuuy3672 [place] [address]Dr. Ivette Hernandez NEUT # 4.6 103/ul Normal 1.4-6.5 [facility] Comment on above: Performed By: #### C BC ####[facility] Nperfuwqrg[address] [place], [place] [address]Dr. Ivette Hernandez Neutrophils/100 WBC (Bld) 78.1 % Critically high 43.0-75.0 [facility] Comment on above: Performed By: #### C BC ####[facility] Gvreqohrdi[address] [place], [place] [address]Dr. Ivette Hernandez Platelet mean volume (Bld) [Entitic vol] 9.5 fL Normal 9.5-13.5 [facility] Comment on above: Performed By: #### C BC ####[facility] Eqjbftrgdb63[address] [place] [address]Dr. Ivette Hernandez PLT 195 103/ul Normal 150-450 [facility] Comment on above: Performed By: #### C BC ####[facility] Btcxnspsvf15[address] [place] [id number]. Ivette Hernandez RBC 2.90 106/ul Critically low 4.20-5.40 [facility] Comment on above: Performed By: #### C BC ####[facility] Ymdmlyxdvx8[address] [place] [address]Dr. Cherjun Hernandez WBC 5.8 103/ul Normal 4.0-11.0 [facility] Comment on above: Performed By: #### C BC ####[facility] Vajqcmubij[address] [place] [address]Dr. Ivette Hernandez ECHOCARDIO M/2D COMPLETEon 1 ECHOCARDIO M/2D COMPLETE Normal [facility] PROF 14(COMP METB)on 022 Albumin [Mass/Vol] 2.3 g/dL Critically low 3.4-5.0 [facility] Comment on above: Performed By: #### C MP ####[facility] Cxtlyvbvtv7[address] [place] [address]Dr. Ivette Hernandez Albumin/Globulin [Mass ratio] 0.6 {ratio} Normal [facility] Comment on above: Performed By: #### C MP ####[facility] Pmykpovhda[address] [place], [place] [address]Dr. Ivette Hernandez ALP [Catalytic activity/Vol] 67 U/L Normal 46-116 [facility] Comment on above: Performed By: #### C MP ####[facility] Clljuwoxxz50[address] [place], [place] [address]Dr. Ivette Hernandez ALT [Catalytic activity/Vol] 15 U/L Normal 14-59 [facility] Comment on above: Performed By: #### C MP ####[facility] Bkjdnhbzay6535[address] [place], [place] [address]Dr. Ivette Hernandez Anion gap [Moles/Vol] 7.6 mmol/L Normal [facility] Comment on above: Performed By: #### C MP ####[facility] Bptdfkbbvf0312[address] [place], [place] [address]Dr. Ivette Hernandez AST [Catalytic activity/Vol] 12 U/L Critically low 15-37 [facility] Comment on above: Performed By: #### C MP ####[facility] Rsapxrswtt32[address] [place], [place] [address]Dr. Ivette Hernandez Bilirubin [Mass/Vol] 0.3 mg/dL Normal 0.2-1.0 [facility] Comment on above: Performed By: #### C MP ####[facility] Feyameumsq7099[address] [place], [place] [address]Dr. Ivette Hernandez Calcium [Mass/Vol] 6.3 mg/dL Critically low 8.5-10.1 [facility] Comment on above: Performed By: #### C MP ####[facility] Ybeoxwscxv[address] [place], [place] [address]Dr. Ivette Hernandez Chloride [Moles/Vol] 104 mmol/L Normal 98-107 [facility] Comment on above: Performed By: #### C MP ####[facility] Hyywiqdjci[address] [place], [place] [address]Dr. Cherjun David CO2 [Moles/Vol] 34.8 mmol/L Critically high 21.0-32.0 [facility] Comment on above: Performed By: #### C MP ####[facility] Efuggiaoir67[address] [place], [place] [address]Dr. Ivette Hernandez Creatinine [Mass/Vol] 1.30 mg/dL Critically high 0.55-1.02 [facility] Comment on above: Performed By: #### C MP ####[facility] Rftzmcsrfp30[address] [place], [place] [address]Dr. Ivette Hernandez EGFR-AF CROATIAN 49 mL/min/1.73m2 Critically low >=60 [facility] Comment on above: Performed By: #### C MP ####[facility] Snlracztfv[address] [place], [place] [address]Dr. Cherjun David EGFR-NON AF CROATIAN 40 mL/min/1.73m2 Critically low >=60 [facility] Comment on above: Performed By: #### C MP ####[facility] Tyjphbmoea9634[address] [place], [place] [address]Dr. Ivette Hernandez Globulin (S) [Mass/Vol] 4.1 g/dL Normal [facility] Comment on above: Performed By: #### C MP ####[facility] Ucwnkkftqq6779[address] [place], [place] [address]Dr. Ivette Hernandez Glucose [Mass/Vol] 130 mg/dL Critically high 74-106 [facility] Comment on above: Performed By: #### C MP ####[facility] Assbyygbxm2954[address] [place], [place] [address]Dr. Ivette Hernandez Potassium [Moles/Vol] 3.4 mmol/L Critically low 3.5-5.1 [facility] Comment on above: Performed By: #### C MP ####[facility] Htpmngespa25[address] [place], [place] [address]Dr. Ivette Hernandez Protein [Mass/Vol] 6.4 g/dL Normal 6.4-8.2 [facility] Comment on above: Performed By: #### C MP ####[facility] Iolrcwrhxa[address] [place], [place] [address]Dr. Ivette Hernandez Sodium [Moles/Vol] 143 mmol/L Normal 136-145 [facility] Comment on above: Performed By: #### C MP ####[facility] Ddjvhmoojg9057[address] [place], [place] [address]Dr. Ivette David Urea nitrogen [Mass/Vol] 24.0 mg/dL Critically high 7.0-18.0 [facility] Comment on above: Performed By: #### C MP ####[facility] Ufgtmsbcmn[address] [place], [place] [address]Dr. Ivette David Urea nitrogen/Creatinine [Mass ratio] 18.5 mg/mg Normal [facility] Comment on above: Performed By: #### C MP ####[facility] Bribreykfd[address] [place], [place] [address]Dr. Ivette David US KIDNEYS BLADDERon 022 US KIDNEYS BLADDER Normal [facility] BNPon 02-25-2022 Natriuretic peptide B (Bld) [Mass/Vol] 05849.0 pg/mL Critically high <=900.0 [facility] Comment on above: Performed By: #### M G, BMP, BNP ####[facility] Ioopsroeuy1273[address] [place], [place] [address]Dr. Ivette David CBC AUTO DIFFon 02-25-2022 BASO # 0.0 103/ul Normal 0.0-0.1 [facility] Comment on above: Performed By: #### C BC ####[facility] Laaanhlrha[address] [place], [place] [address]Dr. Ivette David Basophils/100 WBC (Bld) 0.4 % Normal 0.2-2.0 [facility] Comment on above: Performed By: #### C BC ####[facility] Qiojwbyfmu5[address] [place], [place] [address]Dr. Ivette Hernandez EO # 0.1 103/ul Normal 0.0-0.7 [facility] Comment on above: Performed By: #### C BC ####[facility] Vwhbezxzfn1864[address] [place], [place] [address]Dr. Ivette Hernandez Eosinophils/100 WBC (Bld) 0.8 % Critically low 0.9-7.0 [facility] Comment on above: Performed By: #### C BC ####[facility] Rgobyexiiy124[address] [place], [place] [address]Dr. Ivette Hernandez Erythrocyte distribution width (RBC) [Ratio] 14.3 % Normal 11.0-15.0 [facility] Comment on above: Performed By: #### C BC ####[facility] Fdggcamlxq360[address] [place], [place] [address]Dr. Ivette Hernandez Hematocrit (Bld) [Volume fraction] 29.3 % Critically low 36.0-48.0 [facility] Comment on above: Performed By: #### C BC ####[facility] Uhjidcqwus8244[address] [place], [place] [address]DrJesse Hernandez Hemoglobin (Bld) [Mass/Vol] 9.2 g/dL Critically low 12.0-16.0 [facility] Comment on above: Performed By: #### C BC ####[facility] Craxxbdcdj2023[address] [place], [place] [address]DrJesse Hernandez IG # 0.04 10e3/ul Critically high 0.00-0.03 [facility] Comment on above: Performed By: #### C BC ####[facility] Yxygswnagn9184[address] [place], [place] [address]DrJesse Hernandez IG % 0.4 % Normal 0.0-0.5 [facility] Comment on above: Performed By: #### C BC ####[facility] Unlrnbatyi5594[address] [place], [place] [address]DrJesse Hernandez LYMPH # 1.9 103/ul Normal 1.2-3.8 [facility] Comment on above: Performed By: #### C BC ####[facility] Uhpuzcqjvw[address] [place] [address]Dr. Ivette Hernandez Lymphocytes/100 WBC (Bld) 17.5 % Critically low 20.5-60.0 [facility] Comment on above: Performed By: #### C BC ####[facility] Zfhlxobcdt5138[address] [place], [place] [address]Dr. Ivette Hernandez MANUAL DIFF REQ NO Normal [facility] Comment on above: Performed By: #### C BC ####[facility] Kdeuwfrpqf027[address] [place], [place] [address]Dr. Ivette Hernandez MCH (RBC) [Entitic mass] 28.6 pg Normal 26.7-34.0 [facility] Comment on above: Performed By: #### C BC ####[facility] Ncpijlbzon0492[address] [place], [place] [address]Dr. Ivette Hernandez MCHC (RBC) [Mass/Vol] 31.4 g/dL Normal 29.9-35.2 [facility] Comment on above: Performed By: #### C BC ####[facility] Chkdxwpbjc11[address] [place], [place] [address]DrJesse Hernandez MCV (RBC) [Entitic vol] 91.0 fL Normal 81.0-99.0 [facility] Comment on above: Performed By: #### C BC ####[facility] Ygtvnyfyon5256[address] [place], [place] [address]Dr. Ivette Hernandez MONO # 0.6 103/ul Normal 0.3-0.8 [facility] Comment on above: Performed By: #### C BC ####[facility] Rdtwrsnbun6547[address] [place], [place] [address]Dr. Ivette Hernandez Monocytes/100 WBC (Bld) 5.4 % Normal 1.7-12.0 [facility] Comment on above: Performed By: #### C BC ####[facility] Bfbqtvyomz4063[address] [place], [place] [address]Dr. Ivette Hernandez NEUT # 8.1 103/ul Critically high 1.4-6.5 [facility] Comment on above: Performed By: #### C BC ####[facility] Upyvhkuxtq54[address] [place] [address]Dr. Ivette Hernandez Neutrophils/100 WBC (Bld) 75.5 % Critically high 43.0-75.0 [facility] Comment on above: Performed By: #### C BC ####[facility] Ajfrhvhisx3918 [place] [address]Dr. Ivette Hernandez Platelet mean volume (Bld) [Entitic vol] 9.7 fL Normal 9.5-13.5 [facility] Comment on above: Performed By: #### C BC ####[facility] Yggspbmoqv1502[address] [place], [place] [address]Dr. Ivette Hernandez PLT 242 103/ul Normal 150-450 [facility] Comment on above: Performed By: #### C BC ####[facility] Tcexgrbpfs4716[address] [place], [place] [address]Dr. Ivette Hernandez RBC 3.22 106/ul Critically low 4.20-5.40 [facility] Comment on above: Performed By: #### C BC ####[facility] Zebgifqxwc9875[address] [place], [place] [address]Dr. Ivette Hernandez WBC 10.8 103/ul Normal 4.0-11.0 [facility] Comment on above: Performed By: #### C BC ####[facility] Hlaetwxlyl65[address] [place], [place] [address]Dr. Ivette David MAGNESIUMon 02-25-2022 Magnesium [Mass/Vol] 1.3 mg/dL Critically low 1.8-2.4 [facility] Comment on above: Performed By: #### M G, BMP, BNP ####[facility] Grvzexsvca211[address] [place], [place] [address]Dr. Ivette Hernandez POINT OF CARE GLUCOSEon 02-01 Glucose [Mass/Vol] 191 mg/dL Critically high 74-106 [facility] Comment on above: Performed By: #### P OCGLUC ####[facility] Hxwxgrbqyd[address] [place], [place] [id number]. Ivette Hernandez PROF CHEM 8 (BAS METB)on Anion gap [Moles/Vol] 7.7 mmol/L Normal [facility] Comment on above: Performed By: #### M Rosi, BMP, BNP ####[facility] Dombgapduq8[address] [place] [address]Dr. Ivette Hernandez Calcium [Mass/Vol] 6.4 mg/dL Critically low 8.5-10.1 [facility] Comment on above: Performed By: #### M G, BMP, BNP ####[facility] Mkrywtqakg4143[address] [place], [place] [address]Dr. Ivette Hernandez Chloride [Moles/Vol] 105 mmol/L Normal 98-107 [facility] Comment on above: Performed By: #### M Rosi, BMP, BNP ####[facility] Urotrwwibu9[address] [place], [place] [address]Dr. Ivette Hernandez CO2 [Moles/Vol] 37.4 mmol/L Critically high 21.0-32.0 [facility] Comment on above: Performed By: #### M Rosi, BMP, BNP ####[facility] Gwppozhjob[address] [place], [place] [address]Dr. Ivette Hernandez Creatinine [Mass/Vol] 1.41 mg/dL Critically high 0.55-1.02 [facility] Comment on above: Performed By: #### M G, BMP, BNP ####[facility] [address] [place] [address]Dr. Ivette Hernandez EGFR-AF CROATIAN 44 mL/min/1.73m2 Critically low >=60 [facility] Comment on above: Performed By: #### M G, BMP, BNP ####[facility] T[address] [place], [place] [address]Dr. Ivette Hernandez EGFR-NON AF CROATIAN 37 mL/min/1.73m2 Critically low >=60 [facility] Comment on above: Performed By: #### M G, BMP, BNP ####[facility] Yucp[address] [place], [place] [address]Dr. Ivette Hernandez Glucose [Mass/Vol] 132 mg/dL Critically high 74-106 [facility] Comment on above: Performed By: #### M G, BMP, BNP ####[facility] [address] [place] [address]Dr. Ivette Hernandez Potassium [Moles/Vol] 3.1 mmol/L Critically low 3.5-5.1 [facility] Comment on above: Performed By: #### M G, BMP, BNP ####[facility] [address] [place] [address]Dr. Ivette Hernandez Sodium [Moles/Vol] 147 mmol/L Critically high 136-145 [facility] Comment on above: Performed By: #### M G, BMP, BNP ####[facility] [address]vios[address] [place] [address]Dr. Ivette Hernandez Urea nitrogen [Mass/Vol] 15.0 mg/dL Normal 7.0-18.0 [facility] Comment on above: Performed By: #### M Rosi BMP, BNP ####[facility] [address] [place], [place] [address]Dr. Ivette Hernandez Urea nitrogen/Creatinine [Mass ratio] 10.6 mg/mg Normal [facility] Comment on above: Performed By: #### M Rosi BMP, BNP ####[facility] [address]mrvd[address] [place], [place] [address]Dr. Ivette David TROPONIN, HIGH SENSITIVITYon 02-25-2022 HSTROP 15.5 pg/mL Normal 4.0-51.3 [facility] Comment on above: Result Comment: CUT- OFF POINTS HAVE BEEN ESTABLISHED BASED ON THE FOURTH UNIVERSAL DEFINITIONS OF MYOCARDIALINFARCTION. THE UPPER REFERENCE LIMIT (URL) OF TROPONIN, DEFINED THE 99TH PERCENTILE OFcTnI DISTRIBUTION IN A REFERENCE POPULATION, HAS BEEN CONFIRMED THE DECISION THRESHOLDFOR SD DIAGNOSIS. Performed By: #### H STROPN ####[facility] [address] [place], [place] [address]Dr. Cherjun David HSTROP 17.6 pg/mL Normal 4.0-51.3 [facility] Comment on above: Result Comment: CUT- OFF POINTS HAVE BEEN ESTABLISHED BASED ON THE FOURTH UNIVERSAL DEFINITIONS OF MYOCARDIALINFARCTION. THE UPPER REFERENCE LIMIT (URL) OF TROPONIN, DEFINED THE 99TH PERCENTILE OFcTnI DISTRIBUTION IN A REFERENCE POPULATION, HAS BEEN CONFIRMED THE DECISION THRESHOLDFOR SD DIAGNOSIS. Performed By: #### H STROPN ####[facility] [address]tigfmdfrd[address] [place], [place] [address]Dr. Ivette Hernandez BNPon 02-24-2022 Natriuretic peptide B (Bld) [Mass/Vol] 46403.0 pg/mL Critically high <=900.0 [facility] Comment on above: Performed By: #### B OPERATIONS LEAD, HSTROPN, CMP ####[facility] [address]brwwgdj[address] [place], [place] [address]Dr. Ivette David CBC AUTO DIFFon 02-24-2022 BASO # 0.1 103/ul Normal 0.0-0.1 [facility] Comment on above: Performed By: #### C BC ####[facility] Klkdvfagio[address] [place], [place] [address]Dr. Ivette Hernandez Basophils/100 WBC (Bld) 0.5 % Normal 0.2-2.0 [facility] Comment on above: Performed By: #### C BC ####[facility] Abaiickhry[address] [place], [place] [address]Dr. Ivette Hernandez EO # 0.2 103/ul Normal 0.0-0.7 [facility] Comment on above: Performed By: #### C BC ####[facility] L[address]yxhplyb[address] [place], [place] [address]Dr. Ivette Hernandez Eosinophils/100 WBC (Bld) 2.3 % Normal 0.9-7.0 [facility] Comment on above: Performed By: #### C BC ####[facility] Mwsrhvcwmk[address] [place], [place] [address]Dr. Ivette Hernandez Erythrocyte distribution width (RBC) [Ratio] 14.2 % Normal 11.0-15.0 [facility] Comment on above: Performed By: #### C BC ####[facility] F[address]wlt[address] [place], [place] [address]Dr. Ivette Hernandez Hematocrit (Bld) [Volume fraction] 30.2 % Critically low 36.0-48.0 [facility] Comment on above: Performed By: #### C BC ####[facility] [address] [place] [address]Dr. Ivette David Hemoglobin (Bld) [Mass/Vol] 9.3 g/dL Critically low 12.0-16.0 [facility] Comment on above: Performed By: #### C BC ####[facility] [address] [place] [address]DrJesse Kwonjun David IG # 0.04 10e3/ul Critically high 0.00-0.03 [facility] Comment on above: Performed By: #### C BC ####[facility] Erbxuebevm[address] [place], [place] [address]Dr. Ivette Hernandez IG % 0.4 % Normal 0.0-0.5 [facility] Comment on above: Performed By: #### C BC ####[facility] Z[address]cl[address]uz[address] [place], [place] [address]DrJesse Hernandez LYMPH # 2.6 103/ul Normal 1.2-3.8 [facility] Comment on above: Performed By: #### C BC ####[facility] Un[address]gu[address]ry[address] [place], [place] [address]DrJesse Hernandez Lymphocytes/100 WBC (Bld) 27.1 % Normal 20.5-60.0 [facility] Comment on above: Performed By: #### C BC ####[facility] [address] [place] [address]Dr. Ivette Hernandez MANUAL DIFF REQ NO Normal [facility] Comment on above: Performed By: #### C BC ####[facility] [address] [place] [address]DrJesse Hernandez MCH (RBC) [Entitic mass] 27.8 pg Normal 26.7-34.0 [facility] Comment on above: Performed By: #### C BC ####[facility] [address] [place] [address]Dr. Ivette Hernandez MCHC (RBC) [Mass/Vol] 30.8 g/dL Normal 29.9-35.2 [facility] Comment on above: Performed By: #### C BC ####[facility] [address] [place] [id number]. Ivette Hernandez MCV (RBC) [Entitic vol] 90.4 fL Normal 81.0-99.0 [facility] Comment on above: Performed By: #### C BC ####[facility] [address] [place] [id number]. Ivette David MONO # 0.6 103/ul Normal 0.3-0.8 [facility] Comment on above: Performed By: #### C BC ####[facility] Mdccpq[address] [place], [place] [address]Dr. Ivette David Monocytes/100 WBC (Bld) 6.1 % Normal 1.7-12.0 [facility] Comment on above: Performed By: #### C BC ####[facility] [address]xrbvxpxcb[address] [place], [place] [address]Dr. Ivette Hernandez NEUT # 6.1 103/ul Normal 1.4-6.5 [facility] Comment on above: Performed By: #### C BC ####[facility] Rkycpvfro[address] [place], [place] [address]Dr. Ivette David Neutrophils/100 WBC (Bld) 63.6 % Normal 43.0-75.0 [facility] Comment on above: Performed By: #### C BC ####[facility] [address]nszjnar[address] [place], [place] [address]Dr. Ivette David Platelet mean volume (Bld) [Entitic vol] 9.2 fL Critically low 9.5-13.5 [facility] Comment on above: Performed By: #### C BC ####[facility] [address] [place], [place] [id number]. Ivette David PLT 267 103/ul Normal 150-450 [facility] Comment on above: Performed By: #### C BC ####[facility] [address] [place] [phone]. Cherjun Hernandez RBC 3.34 106/ul Critically low 4.20-5.40 [facility] Comment on above: Performed By: #### C BC ####[facility] [address] [place], [place] [address]Vc. Ivette Hernandez WBC 9.6 103/ul Normal 4.0-11.0 [facility] Comment on above: Performed By: #### C BC ####[facility] [address] [place], [place] [address]Vt. Ivette Hernandez Covid-19 PCR (CVDTB)on 02-01 SARS-CoV-2 (COVID-19) RNA MARRY+probe Ql (Unsp spec) Not detected Normal NOT DETECTED [facility] Comment on above: Result Comment: When diagnostic [...] for this test is supported by the [employer] of Health and Human Service's [...] be used). Performed By: #### C VDTBH ####[facility] [address] [place], [place] [address]Hf. Ivette Hernandez IRON AND TIBCon 02-24-2022 % SATURATION 13.8 % Normal [facility] Comment on above: Performed By: #### V ITAD, FETIBC, B12FOL ####[facility] [address]ts[address] [place], [place] [address]Mh. Ivette Hernandez Iron [Mass/Vol] 26.0 ug/dL Critically low 50.0-170.0 [facility] Comment on above: Performed By: #### V ITAD, FETIBC, B12FOL ####[facility] [address] [place] [address]Dr. Ivette Hernandez TIBC DIRECT 188.0 ug/dL Critically low 250.0-450.0 [facility] Comment on above: Performed By: #### V ITAD, FETIBC, B12FOL ####[facility] [address] [place] [address]Dr. Ivette Hernandez PROF 14(COMP METB)on 02-24- 022 Albumin [Mass/Vol] 2.6 g/dL Critically low 3.4-5.0 [facility] Comment on above: Performed By: #### B OPERATIONS LEAD, HSTROPN, CMP ####[facility] [address] [place] [address]Dr. Ivette Hernandez Albumin/Globulin [Mass ratio] 0.6 {ratio} Normal [facility] Comment on above: Performed By: #### B OPERATIONS LEAD, HSTROPN, CMP ####[facility] [address] [place] [address]Dr. Ivette Hernandez ALP [Catalytic activity/Vol] 79 U/L Normal 46-116 [facility] Comment on above: Performed By: #### B OPERATIONS LEAD, HSTROPN, CMP ####[facility] [address] [place] [address]Dr. Ivette Hernandez ALT [Catalytic activity/Vol] 18 U/L Normal 14-59 [facility] Comment on above: Performed By: #### B OPERATIONS LEAD, HSTROPN, CMP ####[facility] [address]owrj[address] [place] [address]Dr. Ivette Hernandez Anion gap [Moles/Vol] 7.4 mmol/L Normal [facility] Comment on above: Performed By: #### B OPERATIONS LEAD, HSTROPN, CMP ####[facility] [address]ufj[address] [place] [address]Dr. Ivette Hernandez AST [Catalytic activity/Vol] 14 U/L Critically low 15-37 [facility] Comment on above: Performed By: #### B OPERATIONS LEAD, HSTROPN, CMP ####[facility] [address]zt[address]veg[address] [place] [address]Dr. Ivette Hernandez Bilirubin [Mass/Vol] 0.4 mg/dL Normal 0.2-1.0 [facility] Comment on above: Performed By: #### B OPERATIONS LEAD, HSTROPN, CMP ####[facility] Pe[address]avqmqf[address] [place] [address]Dr. Ivette Hernandez Calcium [Mass/Vol] 6.3 mg/dL Critically low 8.5-10.1 [facility] Comment on above: Performed By: #### B OPERATIONS LEAD, HSTROPN, CMP ####[facility] Hxyzi[address] [place], [place] [address]Dr. Ivette Hernandez Chloride [Moles/Vol] 108 mmol/L Critically high 98-107 [facility] Comment on above: Performed By: #### B OPERATIONS LEAD, HSTROPN, CMP ####[facility] J[address]faotqnbt[address] [place], [place] [address]Dr. Ivette Hernandez CO2 [Moles/Vol] 31.7 mmol/L Normal 21.0-32.0 [facility] Comment on above: Performed By: #### B OPERATIONS LEAD, HSTROPN, CMP ####[facility] Q[address]tysadhuc[address] [place], [place] [address]Dr. Ivette Hernandez Creatinine [Mass/Vol] 1.50 mg/dL Critically high 0.55-1.02 [facility] Comment on above: Performed By: #### B OPERATIONS LEAD, HSTROPN, CMP ####[facility] [address]qakjhq[address] [place], [place] [address]Dr. Ivette Hernandez EGFR-AF CROATIAN 41 mL/min/1.73m2 Critically low >=60 [facility] Comment on above: Performed By: #### B OPERATIONS LEAD, HSTROPN, CMP ####[facility] Hznthvcsxb[address] [place], [place] [address]Dr. Ivette Hernandez EGFR-NON AF CROATIAN 34 mL/min/1.73m2 Critically low >=60 [facility] Comment on above: Performed By: #### B OPERATIONS LEAD, HSTROPN, CMP ####[facility] [address]jffgosrp[address] [place] [address]Dr. Ivette Hernandez Globulin (S) [Mass/Vol] 4.3 g/dL Normal [facility] Comment on above: Performed By: #### B OPERATIONS LEAD, HSTROPN, CMP ####[facility] Rvcfsiscfp[address] [place], [place] [address]Dr. Ivette Hernandez Glucose [Mass/Vol] 116 mg/dL Critically high 74-106 [facility] Comment on above: Performed By: #### B OPERATIONS LEAD, HSTROPN, CMP ####[facility] Quozdskjoi[address] [place], [place] [address]Dr. Ivette Hernandez Potassium [Moles/Vol] 3.1 mmol/L Critically low 3.5-5.1 [facility] Comment on above: Performed By: #### B OPERATIONS LEAD, HSTROPN, CMP ####[facility] [address]suys[address]bn[address] [place], [place] [address]Dr. Ivette Hernandez Protein [Mass/Vol] 6.9 g/dL Normal 6.4-8.2 [facility] Comment on above: Performed By: #### B OPERATIONS LEAD, HSTROPN, CMP ####[facility] Husxsoftpx[address] [place], [place] [address]Dr. Ivette Hernandez Sodium [Moles/Vol] 144 mmol/L Normal 136-145 [facility] Comment on above: Performed By: #### B OPERATIONS LEAD, HSTROPN, CMP ####[facility] [address]gseivw[address] [place], [place] [address]Dr. Ivette Hernandez Urea nitrogen [Mass/Vol] 16.0 mg/dL Normal 7.0-18.0 [facility] Comment on above: Performed By: #### B OPERATIONS LEAD, HSTROPN, CMP ####[facility] [address]dtkfl[address] [place], [place] [address]Dr. Ivette Hernandez Urea nitrogen/Creatinine [Mass ratio] 10.7 mg/mg Normal [facility] Comment on above: Performed By: #### B OPERATIONS LEAD, HSTROPN, CMP ####[facility] [address]kbzvfwf[address] [place], [place] [address]Dr. Ivette Hernandez TROPONIN, HIGH SENSITIVITYon 02-24-2022 HSTROP 20.8 pg/mL Normal 4.0-51.3 [facility] Comment on above: Result Comment: CUT- OFF POINTS HAVE BEEN ESTABLISHED BASED ON THE FOURTH UNIVERSAL DEFINITIONS OF MYOCARDIALINFARCTION. THE UPPER REFERENCE LIMIT (URL) OF TROPONIN, DEFINED THE 99TH PERCENTILE OFcTnI DISTRIBUTION IN A REFERENCE POPULATION, HAS BEEN CONFIRMED THE DECISION THRESHOLDFOR SD DIAGNOSIS. Performed By: #### B OPERATIONS LEAD, HSTROPN, CMP ####[facility] [address] [place] [address]Dr. Ivette Hernandez VIT B12 AND FOLATEon Cobalamin (Vitamin B12) [Mass/Vol] 930.0 pg/mL Normal 193.0-986.0 [facility] Comment on above: Performed By: #### V ITAD, FETIBC, B12FOL ####[facility] [address]wiz[address] [place] [address]Dr. Ivette Hernandez FOLATE 22.30 ng/mL Normal 8.60-58.90 [facility] Comment on above: Performed By: #### V ITAD, FETIBC, B12FOL ####[facility] [address] [place] [address]Dr. Ivette Hernandez VITAMIN D 25 OHon 02-24-2022 VIT D 25-OH 35.4 ng/mL Normal [facility] Comment on above: Performed By: #### V ITAD, FETIBC, B12FOL ####[facility] [address] [place] [address]Dr. Ivette Hernandez VIT D RANGES SEE BELOW Normal [facility] Comment on above: Result Comment: <20 ng/mL Vit D deficient 20 - <30 ng/mL Vit D insufficient 30 - 100 ng/mL Vit D sufficient >100 ng/mL Potential Toxicity Performed By: #### V ITAD, FETIBC, B12FOL ####[facility] [address] [place] [address]Dr. Cherjun Hernandez XR CHEST 1 Von 02-24-2022 XR CHEST 1 V Normal [facility] CHEMISTRYOrdered By: SYSTEM SYSTEM on 02-06-2022 Creatinine [Mass/Vol] 1.5 mg/dL High 0.5 - 1.3 mg/d L [facility] Remisol GFR/1.73 sq M.predicted among blacks MDRD (S/P/Bld) [Vol rate/Area] 41 mL/min/1.73 m2 Low >=59mL/min/1.73 m2 [facility] Chem S GFR/1.73 sq M.predicted among non-blacks MDRD (S/P/Bld) [Vol rate/Area] 34 mL/min/1.73 m2 Low >=59mL/min/1.73 m2 [facility] Chem S Covid-19 PCR (CVDTBH)on 11-01 SARS-CoV-2 (COVID-19) RNA MARRY+probe Ql (Unsp spec) Detected Critically abnormal NOT DETECTED [facility] Comment on above: Result Comment: This test is not yet approved or cleared by the [place] FDA. When there are no FDA-approved or cleared tests available, and other criteria are met, FDA can make tests available under an emergency access mechanism called an Emergency Use Authorization (EUA). The EUA for this test is supported by the [employer] of Health and Human Service's [...] be used). Performed By: #### C VDTB ####[facility] [address] [place], [place] [address]Hk. vIette [facility] Metabolic Pane marky 10-03-2021 Albumin [Mass/Vol] 3.3 g/dL Low 3.6-5.[address] [facility] Radiation Officer Comment on above: Performed By: #### C MP #### [facility] [address] [place], [place] [id number] Albumin/Globulin [Mass ratio] 1.5 {ratio} Normal 1.0-2.5 [facility] Radiation Officer Comment on above: Performed By: #### C MP #### [facility] [address] [place], [place] [id number] ALP [Catalytic activity/Vol] 56 U/L Normal 35-119 [facility] Comment on above: Performed By: #### C MP #### [facility] [address] [place], [place] [id number] ALT [Catalytic activity/Vol] 10 U/L Normal 6-33 [facility] Comment on above: Result Comment: 04/02 Female reference range changed. Performed By: #### C MP #### [facility] [address] [place], [place] [id number] Anion gap [Moles/Vol] 15 mmol/L Normal 12-20 [facility] Comment on above: Result Comment: Effe ctive 05/08/2019 reference range changed. Performed By: #### C MP #### [facility] [address] [place], [place] [id number] AST [Catalytic activity/Vol] 15 U/L Normal 9-34 [facility] Comment on above: Performed By: #### C MP #### [facility] [address] [place], [place] [id number] BUN/CREA 15 Ratio Normal 6-22 [facility] Comment on above: Performed By: #### C MP #### [facility] [address] [place], [place] [id number] Calcium [Mass/Vol] 6.2 mg/dL Low 8.6-10.2 [facility] Comment on above: Performed By: #### C MP #### [facility] [address] [facility] [place] [id number] Chloride [Moles/Vol] 108 mmol/L High 98-107 [facility] Comment on above: Performed By: #### C MP #### [facility] [address] [facility] [place] [id number] CO2 [Moles/Vol] 24 mmol/L Normal 20-31 [facility] Comment on above: Performed By: #### C MP #### [facility] [address] [place], [place] [id number] Creatinine [Mass/Vol] 1.9 mg/dL High 0.6-1.4 [facility] Comment on above: Performed By: #### C MP #### [facility] [address] [place], [place] [id number] eGFRAA 31 mL/min/1.73m2 Low >60 [facility] Specialist Comment on above: Performed By: #### C MP #### [facility] [address] [place], [place] [id number] eGFRNAA 26 mL/min/1.73m2 Low >60 [facility] Specialist Comment on above: Performed By: #### C MP #### [facility] [address] [place], [place] [id number] Globulin (S) [Mass/Vol] 2.2 g/dL Normal 1.9-3.7 [facility] Specialist Comment on above: Performed By: #### C MP #### [facility] [address] [place], [place] [id number] Glucose [Mass/Vol] 107 mg/dL High 65-99 [facility] Specialist Comment on above: Result Comment: For FASTING Glucose --- ADA reference ranges: Normal 65-99 mg/dl Prediabetes 100-125 Diabetes >/= 126 Performed By: #### C MP #### [facility] [address] [place], [place] [id number] Potassium [Moles/Vol] 4.3 mmol/L Normal 3.5-5.5 [facility] Comment on above: Performed By: #### C MP #### [facility] [address] [facility] [place] [id number] Protein [Mass/Vol] 5.5 g/dL Low 6.1-8.1 [facility] Specialist Comment on above: Performed By: #### C MP #### [facility] [address] [place], [place] [id number] Sodium [Moles/Vol] 143 mmol/L Normal 135-146 [facility] Radiation Officer Comment on above: Performed By: #### C MP #### [facility] [address] [place], [place] [id number] TBIL <0.3 Normal [facility] Comment on above: Performed By: #### C MP #### [facility] [address] [place], [place] [id number] Urea nitrogen [Mass/Vol] 29 mg/dL High 7-25 [facility] Radiation Officer Comment on above: Performed By: #### C MP #### [facility] [address] [place], [place] [id number] Q - B-TYPE NATRIURETIC (BNP) on 10-03-2021 Natriuretic peptide B (Bld) [Mass/Vol] 248 pg/mL High <100 [facility] Radiation Officer Comment on above: Order Comment: [facility] performed at: QPT, [facility], [address], [address] [place], [address], Dial Polisher: Chon Manzano MD [facility] Collection Date/Time: [id number] [facility] Results Received Date/Time: [facility] Reported Date/Time: Result Comment: BNP levels increase with age in the general population with the highest values seen in individuals greater than 75 years of age. Reference: J. Am. Dylan. Cardiol. 2002; 40:976-982. Performed By: #### [id number] #### [facility] Default [address] [place] [address] Complete Blood Counton 09-11 Erythrocyte distribution width (RBC) [Ratio] 14.3 % Normal 11.0-15.0 [facility] Specialist Comment on above: Performed By: #### C MP, CBC #### [facility] [address] [place], [place] [id number] Hematocrit (Bld) [Volume fraction] 30.1 % Low 35.0-47.0 [facility] Specialist Comment on above: Performed By: #### C MP, CBC #### [facility] [address] [place], [place] [id number] Hemoglobin (Bld) [Mass/Vol] 9.1 g/dL Low 11.6-15.5 [facility] Specialist Comment on above: Performed By: #### C MP, CBC #### [facility] [address] [place], [place] [id number] MCH (RBC) [Entitic mass] 28.7 pg Normal 27.0-33.0 [facility] Radiation Officer Comment on above: Performed By: #### C MP, CBC #### [facility] [address] [place], [place] [id number] MCHC (RBC) [Mass/Vol] 30.2 g/dL Low 32.0-36.0 [facility] Comment on above: Performed By: #### C MP, CBC #### [facility] [address] [place], [place] [id number] MCV (RBC) [Entitic vol] 95 fL Normal 80-100 [facility] Comment on above: Performed By: #### C MP, CBC #### [facility] [address] [place], [place] [id number] Platelet mean volume (Bld) [Entitic vol] 9.60 fL Normal 7.50-12.50 [facility] Comment on above: Performed By: #### C MP, CBC #### [facility] [address] [place], [place] [id number] Platelets (Bld) [#/Vol] 219 10*3/uL Normal 140-400 [facility] Comment on above: Performed By: #### C MP, CBC #### [facility] [address] [place], [place] [id number] RBC (Bld) [#/Vol] 3.17 10*6/uL Low 3.90-5.20 [facility] Comment on above: Performed By: #### C MP, CBC #### [facility] [address] [place], [place] [id number] RDW-SD 49.8 fL Normal 37.0-50.0 [facility] Comment on above: Performed By: #### C MP, CBC #### [facility] [address] [place], [place] [id number] WBC (Bld) [#/Vol] 11.0 10*3/uL Normal 3.8-11.0 [facility] Comment on above: Performed By: #### C MP, CBC #### [facility] [address] [place], [place] [id number] Comprehensive Metabolic Pane marky 09-11-2021 Albumin [Mass/Vol] 3.4 g/dL Low 3.6-5.1 [place] [facility] Comment on above: Performed By: #### C MP, CBC #### [facility] [address] [place], [place] [id number] Albumin/Globulin [Mass ratio] 1.5 {ratio} Normal 1.0-2.5 [facility] Specialist Comment on above: Performed By: #### C MP, CBC #### [facility] [address] [place], [place] [id number] ALP [Catalytic activity/Vol] 65 U/L Normal 35-119 [facility] Specialist Comment on above: Performed By: #### C MP, CBC #### [facility] [address] [place], [place] [id number] ALT [Catalytic activity/Vol] 52 U/L High 6-33 [facility] Specialist Comment on above: Result Comment: 04/02 Female reference range changed. Performed By: #### C MP, CBC #### [facility] [address] [facility] [place] [id number] Anion gap [Moles/Vol] 17 mmol/L Normal 12-20 [facility] Comment on above: Result Comment: Effe ctive 05/08/2019 reference range changed. Performed By: #### C MP, CBC #### [facility] [address] [facility] [place] [place] [id number] AST [Catalytic activity/Vol] 26 U/L Normal 9-34 [facility] Specialist Comment on above: Performed By: #### C MP, CBC #### [facility] [address] [facility] [place] [id number] BUN/CREA 20 Ratio Normal 6-22 [facility] Specialist Comment on above: Performed By: #### C MP, CBC #### [facility] [address] [place], [place] [id number] Calcium [Mass/Vol] 7.1 mg/dL Low 8.6-10.[address] [facility] Radiation Officer Comment on above: Performed By: #### C MP, CBC #### [facility] [address] [place] [id number] Chloride [Moles/Vol] 104 mmol/L Normal 98-107 [facility] Specialist Comment on above: Performed By: #### C MP, CBC #### [facility] [address] [place], [place] [id number] CO2 [Moles/Vol] 27 mmol/L Normal 20-31 [facility] Specialist Comment on above: Performed By: #### C MP, CBC #### [facility] [address] [place], [place] [id number] Creatinine [Mass/Vol] 1.6 mg/dL High 0.6-1.4 [facility] Specialist Comment on above: Performed By: #### C MP, CBC #### [facility] [address], [place] [id number] eGFRAA 38 mL/min/1.73m2 Low >60 [facility] Specialist Comment on above: Performed By: #### C MP, CBC #### [facility] [address], [place] [id number] eGFRNAA 31 mL/min/1.73m2 Low >60 [facility] Specialist Comment on above: Performed By: #### C MP, CBC #### [facility] [address], [place] [id number] Globulin (S) [Mass/Vol] 2.3 g/dL Normal 1.9-3.7 [facility] Specialist Comment on above: Performed By: #### C MP, CBC #### [facility] [address], [place] [id number] Glucose [Mass/Vol] 216 mg/dL High 65-99 [facility] Radiation Officer Comment on above: Result Comment: For FASTING Glucose --- ADA reference ranges: Normal 65-99 mg/dl Prediabetes 100-125 Diabetes >/= 126 Performed By: #### C MP, CBC #### [facility] [address] [place], [place] [id number] Potassium [Moles/Vol] 4.9 mmol/L Normal 3.5-5.5 [facility] Specialist Comment on above: Performed By: #### C MP, CBC #### [facility] [address] [place], [place] [id number] Protein [Mass/Vol] 5.7 g/dL Low 6.1-8.1 [facility] Specialist Comment on above: Performed By: #### C MP, CBC #### [facility] [address] [place], [place] [id number] Sodium [Moles/Vol] 143 mmol/L Normal 135-146 [facility] Comment on above: Performed By: #### C MP, CBC #### [facility] [address], [place] [id number] TBIL <0.3 Normal [facility] Comment on above: Performed By: #### C MP, CBC #### [facility] [address] [place], [place] [id number] Urea nitrogen [Mass/Vol] 33 mg/dL High 7-25 [facility] Comment on above: Performed By: #### C MP, CBC #### [facility] [address] [place], [place] [id number] Q - B-TYPE NATRIURETIC (BNP) on 09-11-2021 Natriuretic peptide B (Bld) [Mass/Vol] 963 pg/mL High <100 [facility] Comment on above: Order Comment: [facility] performed at: Q[facility], [facility], [address] [place] [address], [address] [place], [address], Dial Polisher: Chon Manzano MD [facility] Collection Date/Time: [id number] [facility] Results Received Date/Time: [id number] [facility] Reported Date/Time: Result Comment: BNP levels increase with age in the general population with the highest values seen in individuals greater than 75 years of age. Reference: J. Am. Dylan. Cardiol. 2002; 40:976-982. Performed By: #### 3 [id number] #### [facility] [address] [place] [address] Complete Blood Counton 06-26 Erythrocyte distribution width (RBC) [Ratio] 14.9 % Normal 11.0-15.0 [facility] Comment on above: Performed By: #### C BC, CMP #### [facility] [address] [place], [place] [id number] Hematocrit (Bld) [Volume fraction] 29.4 % Low 35.0-47.0 [facility] Comment on above: Performed By: #### C BC, CMP #### [facility] [address], [place] [id number] Hemoglobin (Bld) [Mass/Vol] 9.3 g/dL Low 11.6-15.5 [facility] Comment on above: Performed By: #### C BC, CMP #### [facility] [address] [place], [place] [id number] MCH (RBC) [Entitic mass] 29.3 pg Normal 27.0-33.0 [facility] Comment on above: Performed By: #### C BC, CMP #### [facility] [address] [place], [place] [id number] MCHC (RBC) [Mass/Vol] 31.6 g/dL Low 32.0-36.0 [facility] Comment on above: Performed By: #### C BC, CMP #### [facility] [address], [place] [id number] MCV (RBC) [Entitic vol] 93 fL Normal 80-100 [facility] Comment on above: Performed By: #### C BC, CMP #### [facility] [address], [place] [id number] Platelet mean volume (Bld) [Entitic vol] 9.60 fL Normal 7.50-12.50 [facility] Comment on above: Performed By: #### C BC, CMP #### [facility] [address], [place] [id number] Platelets (Bld) [#/Vol] 228 10*3/uL Normal 140-400 [facility] Comment on above: Performed By: #### C BC, CMP #### [facility] [address] [place], [place] [id number] RBC (Bld) [#/Vol] 3.17 10*6/uL Low 3.90-5.20 [facility] Comment on above: Performed By: #### C BC, CMP #### [facility] [address], [place] [id number] RDW-SD 51.3 fL High 37.0-50.0 [facility] Comment on above: Performed By: #### C BC, CMP #### [facility] [address] [facility] [place] [id number] WBC (Bld) [#/Vol] 7.9 10*3/uL Normal 3.8-11.0 [facility] Radiation Officer Comment on above: Performed By: #### C BC, CMP #### [facility] [address] [facility] [place] [id number] Comprehensive Metabolic Pane marky 06-26-2021 Albumin [Mass/Vol] 4.0 g/dL Normal 3.6-5.1 [facility] Radiation Officer Comment on above: Performed By: #### C BC, CMP #### [facility] [address] [facility] [place] [id number] Albumin/Globulin [Mass ratio] 1.4 {ratio} Normal 1.0-2.5 [facility] Specialist Comment on above: Performed By: #### C BC, CMP #### [facility] [address] [facility] [place] [id number] ALP [Catalytic activity/Vol] 69 U/L Normal 35-119 [facility] Specialist Comment on above: Performed By: #### C BC, CMP #### [facility] [address] [facility] [place] [id number] ALT [Catalytic activity/Vol] 18 U/L Normal 6-33 [facility] Specialist Comment on above: Result Comment: 04/02 Female reference range changed. Performed By: #### C BC, CMP #### [facility] [address] [facility] [place] [id number] Anion gap [Moles/Vol] 23 mmol/L High 12-20 [facility] Comment on above: Result Comment: Effe ctive 05/08/2019 reference range changed. Performed By: #### C BC, CMP #### [facility] [address] [facility] [place] [id number] AST [Catalytic activity/Vol] 18 U/L Normal 9-34 [facility] Specialist Comment on above: Performed By: #### C BC, CMP #### [facility] [address] [facility] [place] [id number] BUN/CREA 21 Ratio Normal 6-22 [facility] Specialist Comment on above: Performed By: #### C BC, CMP #### [facility] [address] [place], [place] [id number] Calcium [Mass/Vol] 8.8 mg/dL Normal 8.6-10.[address] [facility] Radiation Officer Comment on above: Performed By: #### C BC, CMP #### [facility] [address] [place], [place] [id number] Chloride [Moles/Vol] 106 mmol/L Normal 98-107 [facility] Comment on above: Performed By: #### C BC, CMP #### [facility] [address] [place], [place] [id number] CO2 [Moles/Vol] 18 mmol/L Low 20-31 [facility] Comment on above: Performed By: #### C BC, CMP #### [facility] [address] [place], [place] [id number] Creatinine [Mass/Vol] 2.1 mg/dL High 0.6-1.4 [facility] Comment on above: Performed By: #### C BC, CMP #### [facility] [address] [place], [place] [id number] eGFRAA 29 mL/min/1.73m2 Low >60 [facility] Specialist Comment on above: Performed By: #### C BC, CMP #### [facility] [address] [place], [place] [id number] eGFRNAA 24 mL/min/1.73m2 Low >60 [facility] Specialist Comment on above: Performed By: #### C BC, CMP #### [facility] [address] [place], [place] [id number] Globulin (S) [Mass/Vol] 2.8 g/dL Normal 1.9-3.7 [facility] Specialist Comment on above: Performed By: #### C BC, CMP #### [facility] [address] [place], [place] [id number] Glucose [Mass/Vol] 145 mg/dL High 65-99 [facility] Radiation Officer Comment on above: Result Comment: For FASTING Glucose --- ADA reference ranges: Normal 65-99 mg/dl Prediabetes 100-125 Diabetes >/= 126 Performed By: #### C BC, CMP #### [facility] [address] [place], [place] [id number] Potassium [Moles/Vol] 4.1 mmol/L Normal 3.5-5.5 Nor [facility] Comment on above: Performed By: #### C BC, CMP #### [facility] [address] [place], [place] [id number] Protein [Mass/Vol] 6.8 g/dL Normal 6.1-8.1 [facility] Specialist Comment on above: Performed By: #### C BC, CMP #### [facility] [address] [place], [place] [id number] Sodium [Moles/Vol] 142 mmol/L Normal 135-146 [facility] Specialist Comment on above: Performed By: #### C BC, CMP #### [facility] [address] [place], [place] [id number] TBIL <0.3 Normal [facility] Comment on above: Performed By: #### C BC, CMP #### [facility] [address], [place] [id number] Urea nitrogen [Mass/Vol] 44 mg/dL High 7-25 [facility] Comment on above: Performed By: #### C BC, CMP #### [facility] [address] [place], [place] [id number] Complete Blood Counton 05-22 Erythrocyte distribution width (RBC) [Ratio] 14.4 % Normal 11.0-15.0 [facility] Comment on above: Performed By: #### C BC, CMP #### [facility] [address], [place] [id number] Hematocrit (Bld) [Volume fraction] 31.3 % Low 35.0-47.0 [facility] Comment on above: Performed By: #### C BC, CMP #### [facility] [address], [place] [id number] Hemoglobin (Bld) [Mass/Vol] 9.5 g/dL Low 11.6-15.5 [facility] Comment on above: Performed By: #### C BC, CMP #### [facility] [address], [place] [id number] MCH (RBC) [Entitic mass] 28.7 pg Normal 27.0-33.0 [facility] Comment on above: Performed By: #### C BC, CMP #### [facility] [address], [place] [id number] MCHC (RBC) [Mass/Vol] 30.4 g/dL Low 32.0-36.0 [facility] Comment on above: Performed By: #### C BC, CMP #### [facility] [address], [place] [id number] MCV (RBC) [Entitic vol] 95 fL Normal 80-100 [facility] Specialist Comment on above: Performed By: #### C BC, CMP #### [facility] [address] [place], [place] [id number] Platelet mean volume (Bld) [Entitic vol] 9.90 fL Normal 7.50-12.50 [facility] Specialist Comment on above: Performed By: #### C BC, CMP #### [facility] [address], [place] [id number] Platelets (Bld) [#/Vol] 275 10*3/uL Normal 140-400 [facility] Specialist Comment on above: Performed By: #### C BETTYE, CMP #### [facility] [address], [place] [id number] RBC (Bld) [#/Vol] 3.31 10*6/uL Low 3.90-5.20 [facility] Comment on above: Performed By: #### C BC, CMP #### [facility] [address], [place] [id number] RDW-SD 49.4 fL Normal 37.0-50.0 [facility] Specialist Comment on above: Performed By: #### C BC, CMP #### [facility] [address] [place], [place] [id number] WBC (Bld) [#/Vol] 11.2 10*3/uL High 3.8-11.0 [facility] Comment on above: Performed By: #### C BC, CMP #### [facility] [address], [place] [id number] Comprehensive Metabolic Pane marky 05-22-2021 Albumin [Mass/Vol] 3.9 g/dL Normal 3.6-5.1 Neal [place] Radiation Officer Comment on above: Performed By: #### C BC, CMP #### [facility] [address] [place], [place] [id number] Albumin/Globulin [Mass ratio] 1.3 {ratio} Normal 1.0-2.5 [facility] Radiation Officer Comment on above: Performed By: #### C BC, CMP #### [facility] [address] [place], [place] [id number] ALP [Catalytic activity/Vol] 68 U/L Normal 35-119 [facility] Radiation Officer Comment on above: Performed By: #### C BC, CMP #### [facility] [address] [place], [place] [id number] ALT [Catalytic activity/Vol] 16 U/L Normal 6-33 [facility] Radiation Officer Comment on above: Result Comment: 04/02 Female reference range changed. Performed By: #### C BC, CMP #### [facility] [address] [place], [place] [id number] Anion gap [Moles/Vol] 21 mmol/L High 12-20 [facility] Specialist Comment on above: Result Comment: Effe ctive 05/08/2019 reference range changed. Performed By: #### C BC, CMP #### [facility] [address] [place], [place] [id number] AST [Catalytic activity/Vol] 20 U/L Normal 9-34 [facility] Radiation Officer Comment on above: Performed By: #### C BC, CMP #### [facility] [address] [place], [place] [id number] BUN/CREA 16 Ratio Normal 6-22 [facility] Radiation Officer Comment on above: Performed By: #### C BC, CMP #### [facility] [address], [place] [id number] Calcium [Mass/Vol] 7.9 mg/dL Low 8.6-10.2 [place] Radiation Officer Comment on above: Performed By: #### C BC, CMP #### [facility] [address], [place] [id number] Chloride [Moles/Vol] 102 mmol/L Normal 98-107 [facility] Comment on above: Performed By: #### C BC, CMP #### [facility] [address], [place] [id number] CO2 [Moles/Vol] 26 mmol/L Normal 20-31 [facility] Comment on above: Performed By: #### C BC, CMP #### [facility] [address] [place], [place] [id number] Creatinine [Mass/Vol] 2.0 mg/dL High 0.6-1.4 [facility] Comment on above: Performed By: #### C BC, CMP #### [facility] [address] [place], [place] [id number] eGFRAA 30 mL/min/1.73m2 Low >60 [facility] Specialist Comment on above: Performed By: #### C BC, CMP #### [facility] [address], [place] [id number] eGFRNAA 25 mL/min/1.73m2 Low >60 [facility] Specialist Comment on above: Performed By: #### C BC, CMP #### [facility] [address] [place], [place] [id number] Globulin (S) [Mass/Vol] 3.1 g/dL Normal 1.9-3.7 [facility] Specialist Comment on above: Performed By: #### C BC, CMP #### [facility] [address] [place], [place] [id number] Glucose [Mass/Vol] 57 mg/dL Low 65-99 [facility] Comment on above: Result Comment: For FASTING Glucose --- ADA reference ranges: Normal 65-99 mg/dl Prediabetes 100-125 Diabetes >/= 126 Performed By: #### C BC, CMP #### [facility] [address] [place], [place] [id number] Potassium [Moles/Vol] 4.9 mmol/L Normal 3.5-5.5 [facility] Comment on above: Performed By: #### C BC, CMP #### [facility] [address], [place] [id number] Protein [Mass/Vol] 7.0 g/dL Normal 6.1-8.1 Neal rn [place] Radiation Officer Comment on above: Performed By: #### C BC, CMP #### [facility] [address] [place], [place] [id number] Sodium [Moles/Vol] 144 mmol/L Normal 135-146 Neal [place]n [place] Radiation Officer Comment on above: Performed By: #### C BC, CMP #### [facility] [address], [place] [id number] TBIL <0.3 Normal [facility] Specialist Comment on above: Performed By: #### C BC, CMP #### [facility] [address], [place] [id number] Urea nitrogen [Mass/Vol] 31 mg/dL High 7-25 [facility] Specialist Comment on above: Performed By: #### C BC, CMP #### [facility] [address], [place] [id number] Hemoglobin A1Con 05-22-2021 EAG 125.50 Normal [facility] Specialist Comment on above: Performed By: #### A 1C #### [facility] [address], [place] [id number] HbA1c (Bld) [Mass fraction] 6.0 % Normal 4.0-6.0 [facility] Specialist Comment on above: Performed By: #### A 1C #### [facility] [address] [place], [place] [id number] BASIC METABOLIC PANELon 08-02 Calcium 9.6 mg/dL Normal 8.6-10.3 [facility] Comment on above: Performed By: #### 0 0071 ####[facility] [place] [address], [place] Chloride 100 mmol/L Normal 98-107 [facility] Comment on above: Performed By: #### 0 0071 ####[facility] [place] [address], [place] CO2 28 mmol/L Normal 21-31 [facility] Comment on above: Performed By: #### 0 0071 ####[facility] [place] [address], [facility] Creatinine 1.15 mg/dL Normal 0.60-1.20 [facility] Comment on above: Performed By: #### 0 0071 ####[facility] [place] [address], [facility] eGFR (black) 57 ml/min/1.73sq m Abnormal >60 [facility] Comment on above: Performed By: #### 0 0071 ####[facility] [place] [address], [facility] eGFR (non-black) 47 ml/min/1.73sq m Abnormal >60 [facility] Comment on above: Performed By: #### 0 0071 ####[place] [address] [facility] Glucose mass conc 163 mg/dL High 70-100 [facility] Comment on above: Performed By: #### 0 0071 ####[place] [address]10450 [facility].[address] Potassium molar conc 4.1 mmol/L Normal 3.5-5.1 [facility] Comment on above: Performed By: #### 0 0071 ####[place] [address] [facility].[address] Sodium 135 mmol/L Low 136-145 [facility] Comment on above: Performed By: #### 0 0071 ####[facility] [facility].[address] Urea nitrogen 17 mg/dL Normal 7-25 [facility] Comment on above: Performed By: #### 0 0071 ####[facility] [facility] [address], [facility] CBC W/DIFFon 08-24-2017 ABS BASOPHILS 0.1 10*3/uL Normal 0.0-0.2 [facility] Comment on above: Performed By: #### 5 0103 ####[facility] ABS IMM GRANS 0.1 10*3/uL Normal 0.0-0.2 [facility] Comment on above: Performed By: #### 5 0103 ####[facility] Basophils Auto #/vol (Bld) 0.5 % Normal 0.0-1.0 [facility] Comment on above: Performed By: #### 5 0103 ####[facility] Eosinophils 0.4 10*3/uL Normal 0.0-0.5 [facility] Comment on above: Performed By: #### 5 0103 ####[facility] Eosinophils/100 leukocytes 3.5 % Normal 0.0-6.0 [facility] Comment on above: Performed By: #### 5 0103 ####[facility] Erythrocyte distribution width Auto Ratio (RBC) 14.2 % Normal 11.5-15.0 [facility] Comment on above: Performed By: #### 5 0103 ####[facility] Erythrocytes (RBC) 0 % Normal 0-0 [facility] Comment on above: Performed By: #### 5 3 ####[facility] Erythrocytes (RBC) 4.12 10*6/uL Normal 3.80-5.00 [facility] Comment on above: Performed By: #### 5 3 ####[facility] Hematocrit (HCT) 37.1 % Normal 36.0-45.0 [facility] Comment on above: Performed By: #### 5 0103 ####[facility] [facility].[address] Hemoglobin mass conc (Bld) 12.3 g/dL Normal 12.0-15.0 [facility] Comment on above: Performed By: #### 5 0103 ####[facility] [facility].[address] IMMATURE GRANS 0.4 % Normal 0.0-1.0 [facility] Comment on above: Performed By: #### 5 0103 ####[facility] Lymphocytes 5.1 10*3/uL High 1.2-4.0 [facility] Comment on above: Performed By: #### 5 0103 ####[facility] [facility].[address] Lymphocytes/100 leukocytes 40.5 % Normal 20.0-45.0 [facility] Comment on above: Performed By: #### 5 0103 ####[facility] [facility].[address] MCH 29.9 pg Normal 27.0-33.0 [facility] Comment on above: Performed By: #### 5 0103 ####[facility] [facility].[address] MCHC mass conc (RBC) 33.2 g/dL Normal 32.0-35.0 [facility] Comment on above: Performed By: #### 5 3 ####[facility] [facility].[address] MCV 90.0 fL Normal 82.0-98.0 [facility] Comment on above: Performed By: #### 5 0103 ####[facility] Monocytes 0.9 10*3/uL Normal 0.1-1.0 [facility] Comment on above: Performed By: #### 5 0103 ####[address] MONOS 7.5 % Normal 5.0-12.0 [facility] Comment on above: Performed By: #### 5 0103 ####[address] Neutrophils 6.0 10*3/uL Normal 1.6-7.6 [facility] Comment on above: Performed By: #### 5 0103 ####[address] Neutrophils/100 leukocytes 47.6 % Normal 40.0-72.0 [facility] Comment on above: Performed By: #### 5 0103 ####[address] PLAT CNT 239 10*3/uL Normal 150-400 [facility] Comment on above: Performed By: #### 5 0103 ####[address] WBC (Leukocytes) 12.5 10*3/uL High 4.0-10.6 [facility] Comment on above: Performed By: #### 5 0103 ####[address] ABDOMEN AND PELVIS WO CON TRASTon 08-24-2017 CT ABDOMEN AND PELVIS WO [facility]AST [facility] [address] [place] [address] ========Patient Name: MARTIN HAGEN : 1950Sex: FAge: Race: WhiteMRN: [id number]. Location: 85Patient Status: DVisit #: [id number] Date: 08/24/2017 2:00:00 PMCompleted Date: 08/24/2017 04:18 PMRequesting Provider: KASANDRA BROWN Attending Provider: KASANDRA BROWN Report Copy To: SHAWN BARBER Signs & Symptoms: K43.2 Incisional hernia without obstruction or gangrene [id number]: AthenaComments: , , oral contrast only , , , Ordering Provider - KASANDRA BROWN MD , Rendering Provider - KASANDRA BROWN MD , Exam: CT ABDOMEN AND PELVIS WO CONTRASTAccession #: [id number] CT ABDOMEN AND PELVIS WO CONTRAST 08/24/2017 [...] findings. Electronically signed by:Colin Clemente. Transcribed by: [email or web address], User Resident: LUIS BARRAGANElectronically Signed by: CLOIN CLEMENTE @ 08/25/2017 10:20 PMI personally read this/these film(s) with this resident Normal [facility] [facility] Comment on above: Order Comment: , , o ral contrast only , , , Ordering Provider - KASANDRA BROWN MD , Rendering Provider - KAASNDRA BROWN MD , HEMOGLOBIN A1Con 08-24-2017 Glucose mass conc 146 mg/dL High 70-126 [facility] Comment on above: Performed By: #### [id number] ####[facility] [address] Hemoglobin A1c/Hemoglobin.total mass fraction (Bld) 6.7 % High 4.0-6.0 [facility] Comment on above: Performed By: #### [id number] ####[facility] [address] PROTHROMBIN TIMEon 8 INR Coag RelTime (PPP) 1.10 {INR} Normal 0.91-1.16 [facility] Comment on above: Result Comment: ACCC P RECOMMENDED INR FOR WARFARIN THERAPY CONDITION INRPROPHYLAXIS OF VENOUS THROMBOSIS 2-3(HIGH-RISK SURGERY)TREATMENT OF VENOUS THROMBOSIS 2-3TREATMENT OF PULMONARY EMBOLISM 2-3PREVENTION OF SYSTEMIC EMBOLISM: 2-3 ACUTE MYOCARDIAL INFARCTION TISSUE HEART VALVES VALVULAR HEART DISEASE ATRIAL FIBRILLATION RECURRENT SYSTEMIC EMBOLISMMECHANICAL HEART VALVE 2.5-3.5 FROM: ORAL ANTICOAGULANTS. MECHANISM OF ACTION, CLINICALEFFECTIVENESS, AND OPTIMAL THERAPEUTIC RANGE. [id number]. Performed By: #### [id number] ####[facility] [address] Prothrombin time (PT) Coag time (PPP) 14.3 s Normal 12.3-14.8 [facility] Comment on above: Result Comment: ALL RESULTS MUST BE INTERPRETED WITH RESPECT TO BLOOD DRAWING ARTIFACTOR DILUTION ERROR OF ANTICOAGULANT AT THE TIME OF SAMPLING. Performed By: #### [id number] ####[facility].[address] Vital Signs Date Time Vital Sign Value Performing Clinician Facility 04-29-2023 14:24-0500 Body height 152.[address] 04-29-2023 14:24-0500 Body mass index (BMI) [Ratio] 31.25 kg/m2 [address] 04-29-2023 14:24-0500 Body weight 72.[address] 04-29-2023 14:24-0500 Diastolic blood pressure 64 mm[Hg] [address] 04-29-2023 14:24-0500 Systolic blood pressure 122 mm[Hg] [address] 04-28-2023 09:43-0500 Body temperature 96.98 [degF] Jacqui Michael [facility] 04-28-2023 09:43-0500 Diastolic blood pressure 86 mm[Hg] Jacqui Michael [facility] 04-28-2023 09:43-0500 Heart rate 74 /min Jacqui Lue [facility] 04-28-2023 09:43-0500 Systolic blood pressure 124 mm[Hg] Jacqui Lue [facility] 03-30-2023 13:55-0500 Body height 152.4 cm Annika Kaba WEB SOFTWARE ENGINEER-PROJECT EXECUTIVE Work Phone: [facility] 03-30-2023 13:55-0500 Body mass index (BMI) [Ratio] 31.25 kg/m2 Annika Kaba WEB SOFTWARE ENGINEER-PROJECT EXECUTIVE Work Phone: [facility] 03-30-2023 13:55-0500 Body weight 72.58 kg Annika Kaba WEB SOFTWARE ENGINEER-PROJECT EXECUTIVE Work Phone: [facility] 03-30-2023 13:55-0500 Diastolic blood pressure 60 mm[Hg] Annika Kaba WEB SOFTWARE ENGINEER-PROJECT EXECUTIVE Work Phone: [facility] 03-30-2023 13:55-0500 Heart rate 70 /min Annika Kaba WEB SOFTWARE ENGINEER-PROJECT EXECUTIVE Work Phone: [facility] 03-30-2023 13:55-0500 Systolic blood pressure 128 mm[Hg] Annika Kaba WEB SOFTWARE ENGINEER-PROJECT EXECUTIVE Work Phone: [facility] 02-03-2023 09:07-0400 Blood Pressure Location Jacqui Lue [facility] 02-03-2023 09:07-0400 Diastolic blood pressure 74 mm[Hg] Jacqui Lue [facility] 02-03-2023 09:07-0400 Heart rate 68 /min Jacqui Lue [facility] 02-03-2023 09:07-0400 Respiratory rate 16 /min Jacqui Lue [facility] 02-03-2023 09:07-0400 Systolic blood pressure 120 mm[Hg] Jacqui Michael [facility] 12-29-2022 14:17-0400 Blood Pressure Location INES DANN [facility] 12-29-2022 14:17-0400 Diastolic blood pressure 70 mm[Hg] INES DANN [facility] 12-29-2022 14:17-0400 Heart rate 70 /min INES DANN [facility] 12-29-2022 14:17-0400 Respiratory rate 16 /min INES DANN [facility] 12-29-2022 14:17-0400 Systolic blood pressure 132 mm[Hg] INES DANN [facility] 12-28-2022 14:33-0400 Body height 152.4 cm Shawn Barber Work Phone: [facility] [address] DO Work Phone: 12-28-2022 14:33-0400 Body mass index (BMI) [Ratio] 29.49 kg/m2 Shawn Barber Work Phone: [facility] 250 DO Work Phone: 12-28-2022 14:33-0400 Body surface area Derived from formula 1.66 m2 Shawn Barber Work Phone: [facility] 250 DO Work Phone: 12-28-2022 14:33-0400 Body weight 68.49 kg Shawn Barber Work Phone: [facility] 250 DO Work Phone: 12-28-2022 14:33-0400 Diastolic blood pressure 44 mm[Hg] Shawncris Barber Work Phone: [facility] 250 DO Work Phone: 12-28-2022 14:33-0400 Heart rate 76 /min Shawncris Barber Work Phone: [facility] 250 DO Work Phone: 12-28-2022 14:33-0400 Systolic blood pressure 80 mm[Hg] Shawn Michel Barber Work Phone: [facility] 250 DO Work Phone: 12-28-2022 14:33-0400 11 1 Shawn Barber Work Phone: [facility] 250 DO Work Phone: Comment on above: PHQ-9 TS 11-21-2022 16:00-0400 Inhaled oxygen flow rate 4 L/min II Shawn Barber Work Phone: [facility] 11-21-2022 15:53-0400 Heart rate 65 /min II Shawn Barber Work Phone: [facility] 11-21-2022 15:53-0400 Respiratory rate 20 /min II Shawn Barber Work Phone: [facility] 11-21-2022 12:00-0400 Diastolic blood pressure 79 mm[Hg] II Shawn Barber Work Phone: [facility] 11-21-2022 12:00-0400 SaO2% (BldA) [Mass fraction] 93 % II Shawn Barber Work Phone: [facility] 11-21-2022 12:00-0400 Systolic blood pressure 149 mm[Hg] II Shawn Barber Work Phone: [facility] 11-21-2022 08:30-0400 Body temperature 97.9 [degF] II Shawn Barber Work Phone: [facility] 11-21-2022 06:00-0400 Body weight 74 kg II Shawn Barber Work Phone: [facility] 11-19-2022 09:40-0400 Body height 152.4 cm II Shawn Barber Work Phone: [facility] 11-18-2022 19:23-0400 Diastolic blood pressure 88 mm[Hg] II Shawn Barber Work Phone: [facility] 11-18-2022 19:23-0400 Heart rate 82 /min II Shawn Barber Work Phone: [facility] 11-18-2022 19:23-0400 Inhaled oxygen flow rate 3 L/min II Shawn Barber Work Phone: [facility] 11-18-2022 19:23-0400 Respiratory rate 18 /min II Shawn Barber Work Phone: [facility] 11-18-2022 19:23-0400 SaO2% (BldA) [Mass fraction] 96 % II Shawn Barber Work Phone: [facility] 11-18-2022 19:23-0400 Systolic blood pressure 194 mm[Hg] II Shawn Barber Work Phone: [facility] 11-18-2022 16:13-0400 Body height 152.4 cm II Shawn Barber Work Phone: [facility] 11-18-2022 16:13-0400 Body temperature 98.3 [degF] II Shawn Barber Work Phone: [facility] 11-18-2022 16:13-0400 Body weight 75.29 kg II Shawn Barber Work Phone: [facility] 08-27-2022 16:00-0400 Body height 152.4 cm Ziggy Guerra Other [employer] Other 08-27-2022 16:00-0400 Body mass index (BMI) [Ratio] 34.8 kg/m2 Ziggy Dianne Other [employer] Other 08-27-2022 16:00-0400 Body temperature 97.5 [degF] Ziggy Dianne Other [employer] Other 08-27-2022 16:00-0400 Body weight 80.83 kg Ziggy Dianne Other [employer] Other 08-27-2022 16:00-0400 Diastolic blood pressure 70 mm[Hg] Ziggy Dianne Other [employer] Other 08-27-2022 16:00-0400 Respiratory rate 18 /min Ziggy Dianne Other [employer] Other 08-27-2022 16:00-0400 SaO2% (BldA) [Mass fraction] 91 % Ziggy Dianne Other [employer] Other 08-27-2022 16:00-0400 Systolic blood pressure 124 mm[Hg] Ziggy Dianne Other [employer] Other 07-29-2022 09:08-0400 Blood Pressure Location Jacqui Lue [facility] 07-29-2022 09:08-0400 Diastolic blood pressure 89 mm[Hg] Jacqui Lue [facility] 07-29-2022 09:08-0400 Heart rate 66 /min Jacqui Lue [facility] 07-29-2022 09:08-0400 Systolic blood pressure 131 mm[Hg] Jacqui Lue [facility] 06-10-2022 10:24-0500 Blood Pressure Location Jacqui Lue [facility] 06-10-2022 10:24-0500 Diastolic blood pressure 80 mm[Hg] Jacqui Lue [facility] 06-10-2022 10:24-0500 Heart rate 77 /min Jacqui Lue [facility] 06-10-2022 10:24-0500 Systolic blood pressure 130 mm[Hg] Jacqui Lue [facility] 02-16-2022 13:05-0400 Blood Pressure Location Montero SALAM [facility] 02-16-2022 13:05-0400 Diastolic blood pressure 76 mm[Hg] Montero SALAM [facility] 02-16-2022 13:05-0400 Heart rate 68 /min Montero SALAM [facility] 02-16-2022 13:05-0400 Respiratory rate 30 /min Montero SALAM [facility] 02-16-2022 13:05-0400 SaO2% (BldA) [Mass fraction] 98 % Montero SALAM [facility] 02-16-2022 13:05-0400 Systolic blood pressure 142 mm[Hg] Montero SALAM [facility] 02-16-2022 13:00-0400 Respiratory rate 25 /min Montero SALAM [facility] 02-16-2022 13:00-0400 Systolic blood pressure 127 mm[Hg] Montero SALAM [facility] 02-16-2022 12:55-0400 Blood Pressure Location Montero SALAM [facility] 02-16-2022 12:55-0400 Diastolic blood pressure 71 mm[Hg] Montero SALAM [facility] 02-16-2022 12:55-0400 Heart rate 70 /min Montero SALAM [facility] 02-16-2022 12:55-0400 Respiratory rate 27 /min Montero SALAM [facility] 02-16-2022 12:55-0400 SaO2% (BldA) [Mass fraction] 97 % Montero SALAM [facility] 02-16-2022 12:55-0400 Systolic blood pressure 119 mm[Hg] Montero SALAM [facility] 02-16-2022 12:42-0400 Body temperature 96.98 [degF] Montero SALAM [facility] 02-16-2022 10:46-0400 Body temperature 96.8 [degF] Montero SALAM [facility] 12-31-2021 14:58-0400 Diastolic blood pressure 80 mm[Hg] Lani Lisy [facility] 12-31-2021 14:58-0400 Mean blood pressure 100 mm[Hg] Lani Lisy [facility] 12-31-2021 14:58-0400 Systolic blood pressure 140 mm[Hg] Lani Lisy [facility] 12-31-2021 14:54-0400 Blood Pressure Location Lani Lisy [facility] 12-31-2021 14:54-0400 Body temperature 97.7 [degF] Lani Lisy [facility] 12-31-2021 14:54-0400 Diastolic blood pressure 77 mm[Hg] Lani Wasserman [facility] 12-31-2021 14:54-0400 Heart rate 69 /min Lani Wasserman [facility] 12-31-2021 14:54-0400 Systolic blood pressure 144 mm[Hg] Lani Wasserman [facility] 12-13-2021 11:05-0400 Body weight 79.56 kg Smiley Davila Other [employer] [facility] [employer] Other 12-13-2021 11:05-0400 Diastolic blood pressure 70 mm[Hg] Smiley Davila Other [employer] [facility] [employer] Other 12-13-2021 11:05-0400 Respiratory rate 18 /min Smiley Davila Other [employer] Other 12-13-2021 11:05-0400 SaO2% (BldA) [Mass fraction] 94 % Smiley Davila Other [employer] Other 12-13-2021 11:05-0400 Systolic blood pressure 129 mm[Hg] Smiley Davila Other [employer] Other Encounters Encounter Date Encounter Type Care Provider Facility Start: 05-14-2023 ambulatory Lani Bakeri ty:[facility] Start: 05-07-2023 End: 05-08-2023 ambulatory [facility] Start: 04-29-2023 End: 04-29-2023 Subsequent hospital visit by physician Doreen Garcia Echo/Vasc Room 2 [facility] Comment on above: Nonrheumatic aortic valve stenosis; Pulmonary hypertension (CMS/HCC) Start: 04-28-2023 End: 04-29-2023 ambulatory Jacqui Michael Facility:[facility] Start: 04-28-2023 End: 04-28-2023 Patient encounter procedure Jacqui Michael [facility] Start: 04-20-2023 End: 04-20-2023 ambulatory [facility] Start: 04-20-2023 ambulatory Jacqui Michael Facility:[facility] Start: 04-05-2023 End: 04-05-2023 ambulatory SHAWN BARBER Not Available Start: 03-30-2023 End: 03-30-2023 Office outpatient visit 25 minutes Annika Kaba APRN-PROJECT EXECUTIVE Work Phone: [facility] Comment on above: Paroxysmal atrial fi brillation (CMS/HCC) (Primary Dx); Anticoagulated; Nonrheumatic aortic valve stenosis; Abnormal echocardiogram; Pulmonary hypertension (CMS/HCC); Stage 3a chronic kidney disease (CMS/HCC); Current smoker; Diabetes mellitus type II, non insulin dependent (CMS/HCC); BMI 31.0-31.9,adult; Mixed hyperlipidemia; Essential hypertension Start: 02-22-2023 End: 02-23-2023 ambulatory Jacqui Michael Facility:[facility] Start: 02-22-2023 End: 02-22-2023 Patient encounter procedure Jacqui Michael [facility] Start: 02-03-2023 End: 02-04-2023 ambulatory Jacqui Michael Facility:[facility] Start: 02-03-2023 End: 02-04-2023 ambulatory Jacqui Michael [facility] Start: 02-03-2023 End: 02-03-2023 Patient encounter procedure Jacqui Michael [facility] Start: 12-29-2022 End: 12-30-2022 ambulatory PA-C INES WELCH [facility] Start: 12-29-2022 End: 12-29-2022 Patient encounter procedure INES WELCH [facility] [place] Start: 12-28-2022 Patient encounter procedure Shawn Barber Work Phone: [facility] 250 DO Work Phone: Start: 12-28-2022 ambulatory Annika Kaba Facility:[id number] Start: 11-21-2022 ambulatory Annika Kaba Facility:9 090 Start: 11-20-2022 ambulatory Annika Kaba Facility:9 090 Start: 11-19-2022 ambulatory Annika Kaba Facility:9 090 Start: 11-18-2022 ambulatory Annika Kaba Facility:9 090 Start: 11-18-2022 End: 11-21-2022 Evaluation and management of inpatient Hilary Mischler Facility:[facility] Start: 11-18-2022 End: 11-21-2022 Evaluation and management of inpatient MARTHA Barber Work Phone: [facility] [place] [facility] Work Phone: Start: 10-27-2022 End: 10-27-2022 ambulatory PHILL SIMPSON [facility] Start: 09-22-2022 End: 09-22-2022 ambulatory SILVA MAXWELL [facility] Start: 09-11-[address] SHAWN BARBER Facilit y:[facility] Start: 09-06-2022 End: 09-08-2022 Evaluation and management of inpatient DR LALI RIVERA . Facility: Start: 08-27-2022 End: 08-27-2022 ambulatory Ziggy Dianne Other [employer] Other Start: 08-27-2022 Office outpatient ne w 45 minutes Ziggy Dianne [facility] Start: 07-29-2022 End: 07-30-2022 ambulatory Jacqui Michael Facility:[facility] Start: 07-29-2022 End: 07-29-2022 Patient encounter procedure Jacqui Michael [facility] Start: 07-22-[address] SHAWN BARBER Facilit y:[facility] Start: 07-08-2022 End: 07-09-2022 ambulatory ZOHRA WELCH Facility:[facility] Start: 07-08-2022 End: 07-08-2022 Patient encounter procedure INES WELCH [facility] Start: 07-07-2022 End: 07-07-[address] SILVA MAXWELL Facility:[facility] Start: 07-06-2022 End: 07-06-2022 ambulatory SILVA MAXWELL [facility] Start: 06-15-2022 End: 06-16-2022 ambulatory INES WELCH Facility:[facility] Start: 06-14-2022 End: 06-15-2022 ambulatory INES WELCH Facility:[facility] Start: 06-10-2022 End: 06-11-2022 ambulatory Jacqui Michael Facility:[facility] Start: 06-10-2022 End: 06-10-2022 Lab Drop off Jacqui Michael [facility] Start: 06-10-2022 End: 06-11-2022 ambulatory Jacqui Michael Facility:[facility] [place] Start: 06-10-2022 End: 06-10-2022 Patient encounter procedure Jacqui Michael [facility] Start: 05-05-2022 End: 05-06-[address] ANITA KEYS Facility:[facility] Start: 04-16-2022 End: 04-16-2022 ambulatory [facility] Facility:[facility] Start: 04-15-2022 End: 04-28-[address] JOSE SON . Facility:[facility] Start: 04-13-2022 End: 04-13-2022 ambulatory [facility] Start: 04-10-2022 End: 04-13-2022 Evaluation and [...] End: 02-16-2022 Patient encounter procedure Kylah BELL [facility] Start: 02-06-2022 End: 02-06-2022 Patient encounter procedure Lani Wasserman [facility] Start: 12-31-2021 End: 05-07-2022 Recurring Kylah BELL [facility] Start: 12-31-2021 End: 12-31-2021 Patient encounter procedure Lani Wasserman [facility] Start: 12-13-2021 End: 12-13-2021 ambulatory Smiley Davila Other [employer] Other Start: 12-13-2021 Office outpatient ne w 20 minutes Smiley Davila [facility] Start: 11-28-2021 End: 11-28-2021 ambulatory JOHN VÍCTOR Facility:[facility] Start: 10-07-2021 End: 10-08-[address] MAHAMED RM Facility:[facility] Start: 09-23-2021 End: 09-24-[address] MAHAMED RM Facility:[facility] Start: 08-24-2017 End: 08-25-2017 Ambulatory KASANDRA BROWN Facility:[facility] Procedures Date Procedure Procedure Detail Performing Clinician Start: 04-29-2023 Echo tthrc r-t 2d w/ wom-mode compl spec&colr d Annika Kaba WEB SOFTWARE ENGINEER-PROJECT EXECUTIVE Work Phone: Start: 04-13-2023 Mammography Doreen 2 Start: 02-22-2023 Transurethral cystoscopy Jacqui Michael Start: 11-21-2022 Plain chest X-ray II Da noni Barber Work Phone: Start: 11-18-2022 Plain chest X-ray II Da noni Barber Work Phone: Start: 09-22-2022 Follow-up visit Follow-up [facility] Start: 09-07-2022 Transfusion of Nonau tologous Red Blood Cells into Peripheral Vein, Percutaneous Approach DR MAHAMED RM Start: 02-16-2022 Colonoscopy Colonoscopy Kylah Perez Start: 12-02-2020 Cystoscopy Jacqui Lue Start: 05-30-2020 Mammography Annika lyle WEB SOFTWARE ENGINEER-PROJECT EXECUTIVE Work Phone: Start: 05-03-2020 Colonoscopic polypectomy Shawn [...] 02-17-2032 Screening for malignant neoplasm of colon [facility] Start: 04-29-2024 Echocardiography Echocardiogram [facility] Start: 04-13-2024 Screening for malignant neoplasm of breast Mammogram [facility] Start: 11-19-2023 Echocardiography Echocardiogram [facility] Start: 05-12-2023 End: 05-12-2023 Patient encounter procedure 05/12/2023 2:30 PM EST Office Visit [facility] [address] [facility] [address] [place] [id number] Annika Kaba, WEB SOFTWARE ENGINEER-PROJECT EXECUTIVE [address] [place] [address] [facility] Start: 04-29-2023 End: 04-29-2023 Patient encounter procedure 04/29/2023 2:30 PM EST Appointment [place] [id number] [facility] [address] [place] [id number] [facility] Start: 03-30-2023 End: 03-30-2024 [...] (CMS/HCC) Anticoagulated Expected: 03/30/2023 (Approximate), Expires: 03/30/2024 [facility] Work Phone: Comment on above: Expected: 03/30/2023 (Approximate), Expi res: 03/30/2024 Start: 03-30-2023 End: 03-30-2025 Heart Transthoracic Transthoracic Echo (TTE) Complete Echocardiography Routine Nonrheumatic aortic valve stenosis Pulmonary hypertension (CMS/HCC) Expected: 03/30/2023 (Approximate), Expires: 03/30/2025 [facility] Work Phone: Comment on above: Expected: 03/30/2023 (Approximate), Expi res: 03/30/2025 Start: 11-23-2022 Blood chemistry [facility] Start: 11-23-2022 [facility] Start: 11-22-2022 Blood chemistry [facility] Start: 11-22-2022 [facility] Start: 11-21-2022 Blood chemistry [facility] Start: 11-21-2022 End: 11-21-2022 [facility] Start: 11-20-2022 Blood chemistry [facility] Start: 11-20-2022 [facility] Start: 11-19-2022 Referral to [employer] operator [facility] Start: 11-19-2022 Blood chemistry [facility] Start: 11-19-2022 End: 11-19-2022 [facility] Start: 11-18-2022 Hospital admission [facility] Start: 11-18-2022 [facility] Start: 05-30-2021 Screening for malignant neoplasm of breast Mammogram [facility] Start: 10-04-2020 Screening for osteoporosis Bone Density Scan [facility] Start: 04-02-2016 Zoster Vaccines (2 of 3) Zoster Vaccines (2 of 3) [facility] Start: 2008 Hepatitis B Vaccines (1 of 3 - Risk 3-dose series) Hepatitis B Vaccines (1 of 3 - Risk 3-dose series) [facility] Start: 1970 DTaP/Tdap/Td Vaccines (1 - Tdap) DTaP/Tdap/Td Vaccines (1 - Tdap) [facility] Start: 12-08-1967 Hepatitis A Vaccines (1 of 2 - Risk 2-dose series) Hepatitis A Vaccines (1 of 2 - Risk 2-dose series) [facility] Start: 12-08-1967 Urine screening for protein Diabetes: Urine Protein Screening [facility] Start: 1966 Hepatitis C screening Hepatitis C Screening [facility] Start: 1958 Diabetic foot examination Diabetes: Foot Exam [facility] Start: 1958 Glaucoma screening Diabetes: Retinopathy Screening [facility] Start: 06-09-1949 COVID-19 Vaccine (#1) COVID-19 Vaccine (#1) [facility] Start: 1948 Creatinine measurement Creatinine Level [facility] Start: 1948 Hemoglobin A1c measurement Diabetes: Hemoglobin A1C [facility] Start: 1948 Lipid panel Lipid Panel [facility] Start: 1948 Medicare Annual Wellness Visit Medicare Annual Wellness Visit (AWV) [facility] Start: 1948 Potassium measurement Potassium Level [facility] Start: 1948 Screening for malignant neoplasm of colon [facility] Patient referral [facility] Work Phone: End: 04-29-2023 [facility] Work Phone: Comment on above: Once for 1 Occurrences starting 04/29/20 23 until 04/29/2023 Immunizations Immunization Date Immunization Notes Care Provider Rajan [facility] 03-01-2023 influenza virus vaccine, unspecified formulation Jacqui Michael [facility] 02-05-2022 influenza virus vaccine, unspecified formulation Jacqui Michael [facility] 01-31-2022 influenza virus vaccine, unspecified formulation Jacqui Michael [facility] 01-31-2022 influenza, high dose seasonal, preservative-free Shawn B Barber Work Phone: [facility] 250 DO Work Phone: 03-05-2021 influenza virus vaccine, unspecified formulation Jacqui Lue [facility] 03-05-2021 influenza, high dose seasonal, preservative-free Shawn B Barber Work Phone: [facility] DO Work Phone: 03-22-2020 influenza virus vaccine, unspecified formulation Jacqui Lue [facility] 03-15-2020 influenza virus vaccine, unspecified formulation Jacqui Lue [facility] 03-15-2020 influenza, high dose seasonal, preservative-free Shawn B Barber Work Phone: [facility] 250 DO Work Phone: 02-09-2019 influenza virus vaccine, unspecified formulation Jacqui Lue [facility] 02-09-2019 influenza, high dose seasonal, preservative-free Shawn B Barber Work Phone: [facility] 250 DO Work Phone: 02-17-2018 influenza virus vaccine, unspecified formulation Jacqui Lue [facility] 02-17-2018 influenza, high dose seasonal, preservative-free Shawn B Barber Work Phone: [facility] 250 DO Work Phone: 01-25-2017 influenza virus vaccine, unspecified formulation Jacqui Lue [facility] 01-25-2017 influenza, high dose seasonal, preservative-free Shawn Michel Barber Work Phone: [facility] 250 DO Work Phone: 02-19-2016 influenza virus vaccine, unspecified formulation Jacqui Michael [facility] 02-19-2016 influenza, injectabl e, quadrivalent, contains preservative Shawn Michel Barber Work Phone: [facility] 250 DO Work Phone: 02-06-2016 zoster vaccine, live Jacqui L ue [facility] 02-03-2016 pneumococcal polysaccharide vaccine, 23 valent Jacqui Lue [facility] 04-12-2015 pneumococcal conjuga te vaccine, 13 valent Jacqui Lue [facility] NEGATED: Highlighted row has not occurred!12-31-2021 influenza virus vaccine, unspecified formulation Lani Wasserman [facility] Payers Date Payer Category Payer Medicaid MEDICAID MEDICAI D [id number] 2021-Present [address] [place] [address] [id number] 2014 Unknown [id number] 2011 Medicare MEDICARE MEDICAR E PART A AND B [id number] 2011-Present [address] [place] [address] [id number] [id number] 1959 Medicaid [id number] 2.16.840.1.944989.19 1959 Medicare [id number] 2.16.840.1.792462.19 1959 Self-pay 1959 Unknown [id number] 2.16.8 40.1.570573.19 1948 Unknown [id number] 2.16.840.1.767649.3.579.2.593 1948 Unknown [id number] 2.16.840.1.431534.3.579.2.593 1948 Unknown [id number] 2.16.840.1.217063.3.579.2.593 1948 Unknown [id number] 2.16.840.1.024372.3.579.2.593 1948 Unknown [id number] 2.16.840.1.582129.3.579.2.593 1948 Unknown [id number] 2.16.840.1.148593.3.579.2.593 1948 Unknown [id number] 2.16.840.1.144661.3.579.2.593 1948 Unknown [id number] 2.16.840.1.322038.3.579.2.593 1948 Unknown [id number] 2.16.840.1.093297.3.579.2.593 1948 Unknown [id number] 2.16.840.1.443723.3.579.2.593 1948 Unknown [id number] 2.16.840.1.143812.3.579.2.593 1948 Unknown [id number] 2.16.840.1.334764.3.579.2.593 1948 Unknown [id number] 2.16.840.1.778055.3.579.2.593 1948 Unknown [id number] 2.16.840.1.574192.3.579.2.593 1948 Unknown [id number] 2.16.840.1.712484.3.579.2.593 1948 Unknown [id number] 2.16.840.1.894704.3.579.2.593 1948 Unknown [id number] 2.16.840.1.907975.3.579.2.593 1948 Unknown [id number] 2.16.840.1.747349.3.579.2.593 1948 Unknown [id number] 2.16840.1.782944.3.579.2.356 1948 Unknown [id number] 2.840.1.238669.3.579.2.356 1948 Unknown [id number] 2.840.1.138490.3.579.2.356 1948 Unknown [id number] 2.840.1.364892.3.579.2.356 1948 Unknown [id number] 2.840.1.687244.3.579.2.356 1948 Unknown [id number] 2.840.1.437760.3.579.2.1259 1948 Unknown [id number] 2.840.1.647285.3.579.2.727 1948 Unknown [id number] 2.840.1.848375.3.579.2.727 1948 Unknown [id number] 2.16840.1.487239.3.579.2.727 1948 Unknown [id number] 2.16840.1.306322.3.579.2.727 1948 Unknown [id number] 2.16840.1.591704.3.579.2.727 1948 Unknown [id number] 2.16.840.1.235910.3.579.2.727 1948 Unknown [id number] 2.16.840.1.955673.3.579.2.727 1948 Unknown [id number] 2.16.840.1.853100.3.579.2.727 1948 Unknown [id number] 2.16.840.1.072102.3.579.2.727 1948 Unknown [id number] 2.16.840.1.668703.3.579.2.727 1948 Unknown [id number] 2.16.840.1.782448.3.579.2.727 1948 Unknown [id number] 2.16.840.1.635700.3.579.2.1286 1948 Unknown [id number] 2.16.840.1.834442.3.579.2.1286 Medicare [id number] Unknown [id number] 2.16.840.1.217878.3.579.2.531 Unknown Unknown [id number] Social History Date Type Detail Facility Start: 12-28-2022 End: 03-30-2023 Sex Assigned At [employer] Other Start: 12-31-2021 Tobacco smoking status Light t obacco smoker (finding) [facility] Tobacco smoking status Never Kameron [facility] Start: 11-18-2022 End: 11-19-2022 Tobacco smoking status NHIS Smoker (finding) [facility] Start: 1950 Sex Assigned At Female [facility] Start: 12-28-2022 End: 03-30-2023 Caffeine use Caffeine use [facility] Comment on above: 2 cups coffee daily most of the time; 1/2 ppd; Start: 12-29-2022 End: 04-28-2023 Tobacco smoking status Heavy tobacco smoker (finding) [facility] Start: 03-30-2023 Tobacco smoking stat us NHIS Smokes tobacco daily [facility] History of tobacco [facility] Start: 03-30-2023 Tobacco use and exposure Smokeless tobacco non-user [facility] Work Phone: Start: 03-30-2023 Alcohol intake Lifetime non-d jeffy (finding) [facility] Work Phone: Start: 03-30-2023 Gender identity Identifies as female gender (finding) [facility] Work Phone: Start: 03-30-2023 Sexual orientation Heterosexual (fin ding) [facility] Work Phone: Start: 03-20-2023 End: 04-29-2023 Exposure to SARS-CoV-2 (event) Not sure [facility] Goals Date Patient Goal Desired Activity /State Functional Status Date Assessment Result Facility 04-28-2023 Functional Status N/A [facility] 02-12-2023 Functional Status N/A [facility] 02-03-2023 Functional Status N/A [facility] 12-29-2022 Functional Status N/A [facility] 11-21-2022 Functional status Patient at Baseline [facility] Work Phone: 07-29-2022 Functional Status N/A [facility] 06-10-2022 Functional Status N/A [facility] 02-16-2022 Functional Status N/A [facility] 12-31-2021 Functional Status N/A [facility] Mental Status Date Assessment Result Facility 11-21-2022 Cognitive function Cognitive Sta tus Patient at Baseline [facility] Work Phone: Clinical Notes 04-02-2021 to 04-28-2023 Assessment & Plan Note - Annika Johnny NATALIE Kaba - 04/03/2023 12:04 PM ESTAssessment & Plan Note - Annika K NATALIE Kaba - 04/03/2023 12:04 PM ESTPatient Instructions Note Date & Type Note Facility 04-28-2023 Hospital Discharg e instructions Patient Education 04/28/2023 10:24:50 Urinary Tract Infection, Adult, Tuwm-xj-Nlwv Urinary Tract Infection, Adult A urinary tract [...] Follow these instructions at home: Medicines Take vwfo-xoj-pfkdkwe and prescription medicines only as told by [...] provider. Document Revised: 11/29/2020 Document Reviewed: 11/29/2020 [employer] Patient Education 2022 [employer] Follow Up Care 02/22/2023 10:37:46 With:Alec XIE, CARLY [place], URO Address: When:Within 3 Month(s) [facility] 04-03-2023 Evaluation + Plan note Associated Problem(s): Current smoker Continued every day tobacco use. Have reviewed the negative cardiovascular impact of nicotine. Continues to decline pharmacological assistance. [facility] Work Phone: 04-03-2023 Evaluation + Plan note Associated Problem(s): Stage 3 chronic kidney disease (CMS/HCC) Report establish follow-up with Dr. Guerra Last creatinine in our system was 4.2 [facility] Work Phone: 04-03-2023 Miscellaneous Notes Associated [...] size were reportedly normal Associated Problem(s): A-fib ([facility]) Daughter believes this was diagnosed during one of the hospitalizations prior to being under the care of of an NO. Regular rate and rhythm on exam Associated Problem(s): Aortic stenosis October 2022 TTE Aortic Stenosis p46;m26 documented in this encounter [facility] Work Phone: 04-03-2023 Evaluation + Plan note Associated Problem(s): Diabetes mellitus type II, non insulin dependent ([facility]) Maintained on statin No LONI/ARB due to CKD [facility] Work Phone: 04-03-2023 Evaluation + Plan note Associated Problem(s): Anticoagulated CHADS VASc 4 chronically anticoagulated full dose Eliquis age 72, weight 160 pounds. [facility] Work Phone: 04-03-2023 Evaluation + Plan note Associated Problem(s): Essential hypertension Optimal in office [facility] Work Phone: 04-03-2023 Evaluation + Plan note Associated Problem(s): Hyperlipidemia Low intensity statin [facility] Work Phone: 04-03-2023 Evaluation + Plan note Associated Problem(s): Abnormal echocardiogram October 2022 TTE LVEF 60 to 65% LA moderate/severe Aortic stenosis peak 46, mean 26 RVSP 84 mmHg (denies prior PE, longstanding tobacco abuse, chronic hypoxia and COPD) RV function and size were reportedly normal [facility] Work Phone: 04-03-2023 Evaluation + Plan note Associated Problem(s): A-fib (CMS/HCC) Daughter believes this was diagnosed during one of the hospitalizations prior to being under the care of of an [facility]. Regular rate and rhythm on exam [facility] Work Phone: 04-03-2023 Evaluation + Plan note Associated Problem(s): Aortic stenosis October 2022 TTE Aortic Stenosis p46;m26 [facility] Work Phone: 03-30-2023 History of Presen [...] December visit I requested cardiology records from [facility] and those were not obtained. She [...] incidence of candidiasis. Do not swallow. HYDROcodone-acetaminophen ([place]) 5-325 mg tablet 1 tablet, oral levETIRAcetam [...] October 2022 TTE Aortic Stenosis p46;m26 A-fib ([facility]) Daughter believes this was diagnosed during one of the hospitalizations prior to being under the care of of an [facility]. Regular rate and rhythm on exam Abnormal [...] Diabetes mellitus type II, non insulin dependent ([facility]) Maintained on statin No LONI/ARB due to CKD Stage 3 chronic kidney disease ([facility]) Report establish follow-up with Dr. Guerra Last [...] contact the office if new symptoms arise. OPERATIONS LEAD 2 months I will get hospital records to see if she should be holding Kathie Kaba MSN, WEB SOFTWARE ENGINEER-PROJECT EXECUTIVE, PMHNP-[facility] Please excuse any errors in grammar or translation related to this dictation. Voice recognition software was utilized to prepare this document. documented in this encounter [facility] Work Phone: 11-28-2023 Instructions NATALIE Gonsalez [...] contact the office if new symptoms arise. OPERATIONS LEAD 2 months I will get hospital records to see if she should be holding Eliquis documented in this encounter [facility] Work Phone: 02-22-2023 Note [id number] [facility] 02-22-2023 Note Cystoscopy ? Voiding after [...] you have a fever over [address] [facility] 02-22-2023 Hospital Discharg e instructions Patient [...] Up Care 02/03/2023 10:05:26 With:Jacqui Michael Address: [address] [place] [address] [phone] Business (1) [address], [address] [address] [phone] Business (1) When: Unknown Comments:Office to schedule follow up in 1 to 2 months [facility] 02-03-2023 Hospital Discharg e instructions Patient Education 02/03/2023 10:01:15 Urinary Tract Infection, Adult, Tsnu-bp-Fxiq Urinary Tract Infection, Adult A urinary tract [...] Follow these instructions at home: Medicines Take ggux-jir-osihneg and prescription medicines only as told by [...] Document Reviewed: 11/29/2020 Elsevier Patient Education 2022 [employer]. Follow Up Care 07/29/2022 09:55:50 With:Alec XIE, Jacqui Nieves [place], URO Address: When: Unknown Comments:Sched cysto [facility] 12-29-2022 Hospital Discharg e instructions Patient Education [...] Treatment for this condition includes: Antibiotic medicine. Cygb-nqt-mxmvimb medicines to treat discomfort. Drinking enough water [...] Follow these instructions at home: Medicines Take tkys-wnp-gdwngji and prescription medicines only as told by [...] provider. Document Revised: 11/29/2020 Document Reviewed: 11/29/2020 [employer] Patient Education 2022 [employer]. Follow Up Care 12/23/2022 14:08:39 With:Alec XIE, CARLY [place], URO Address: When: Unknown [facility] 11-21-2022 Progress note Note Date/Time November 21, 2022 11:31am [facility] [address] [place] [address] Cardiology Progress Note Signed Patient: Martin Hagen MR#: [id number] : 1950 Acct:[id number] Age/Sex: 71 / F Adm Date: 3 Loc: Room: [address] [place] [address] Type: ADM IN Attending Dr: Gina Poole [...] % (Auto) 70.8 Lymph % (Auto) 18.9 [place] % (Auto) 7.3 Eos % (Auto) 2.7 Baso % (Auto) 0.3 Nucleat RBC Rel Count 0.1 Neut # (Auto) 4.1 Lymph # (Auto) 1.1 Ripley # (Auto) 0.4 Eos # (Auto) 0.2 Baso # (Auto) 0.0 PHA Creatinine Clear Sodium Potassium Chloride Carbon Dioxide Anion Gap BUN Creatinine Est GFR (CKD-EPI) Glucose POC Glucose 123 135 Calcium 11/21/22 11/21/22 04:47 08:37 Corrected WBC Uncorrected WBC Count RBC Hgb Hct MCV MCH MCHC RDW Plt Count MPV Neut % (Auto) Lymph % (Auto) Ripley % (Auto) Eos % (Auto) Baso % (Auto) Nucleat RBC Rel Count Neut # (Auto) Lymph # (Auto) Ripley # (Auto) Eos # (Auto) Baso # [...] aggressive diuresis Documented By: Colin Carrillo MD, [facility] 3 1127 Signed By: <Electronically signed by [facility] Colin Carrillo> 11/21/22 1131 [facility] Work Phone: 1(289) 450-857207-21-2023 Progress note Author Gina Poole [facility] November 20, 2022 2:12pm Note Date/Time November 20, 2022 2:12 pm [facility] [address] [place] [address] Hospitalist Progress Note Signed Patient: Martin Hagen MR#: [id number] : 1950 Acct:[id number] Age/Sex: 71 / F Adm Date: 3 Loc: Room: 2C8326-2 Type: ADM IN Attending Dr: Gina Poole [...] Ml Insuln.Pen SUBCUT 11/19/23 11:59 Not Given TID.WM.[facility] Protocol Magnesium Oxide 400 mg 11/19/22 09:00 [...] <Electronically signed by Gina Poole DO> 11/20/[address] [place] [address] Work Phone: 1(553) 422-932207-21-2023 Progress note Author Rey Arriaga [facility] November 20, 2022 10:30am Note Date/Time November 20, 2022 10:3 0am [facility] [address] [place] [address] Cardiology Progress Note Signed Patient: Martin Hagen MR#: [id number] : 1950 Acct:[id number] Age/Sex: 71 / F Adm Date: 3 Loc: Room: [address] [place] [address] Type: ADM IN Attending Dr: Gina Poole [...] MPV Neut % (Auto) Lymph % (Auto) Ripley % (Auto) Eos % (Auto) Baso % (Auto) Nucleat RBC Rel Count Neut # (Auto) Lymph # (Auto) Ripley # (Auto) Eos # (Auto) Baso # [...] % (Auto) 68.4 Lymph % (Auto) 22.4 Ripley % (Auto) 6.7 Eos % (Auto) 2.1 Baso % (Auto) 0.4 Nucleat RBC Rel Count 0.1 Neut # (Auto) 3.7 Lymph # (Auto) 1.2 Ripley # (Auto) 0.4 Eos # (Auto) 0.1 [...] MPV Neut % (Auto) Lymph % (Auto) [place] % (Auto) Eos % (Auto) Baso % (Auto) Nucleat RBC Rel Count Neut # (Auto) Lymph # (Auto) Ripley # (Auto) Eos # (Auto) Baso # [...] signed by MD Rey Arriaga> 11/20/22 1030 [facility] Work Phone: 1(664) 553-559107-20-2023 Consult note Author Rey Arriaga [facility] November 19, 2022 2:59pm Note Date/Time November 19, 2022 2:59 pm [facility] [address] [place] [address] Cardiology Consult Note Signed Patient: Martin Hagen MR#: [id number] : 1950 Acct:[id number] Age/Sex: 71 / F Adm Date: 3 Loc: Room: [address] [place] [address] Type: ADM IN Attending Dr: Gina Poole [...] Lymph # (Auto) 1.5 1.6 (1.00-4.8) x10E3/uL Ripley # (Auto) 0.4 0.4 (0.0-0.8) x10E3/uL Eos [...] <Electronically signed by MD Rey Arriaga> 11/19/22 [facility] Work Phone: 1(642) 104-412407-20-2023 Progress note Author Gina Poole [facility] November 19, 2022 11:54am Note Date/Time November 19, 2022 11:5 4am [facility] [address] [place] [address] Hospitalist Progress Note Signed Patient: Martin Hagen MR#: [id number] : 1950 Acct:[id number] Age/Sex: 71 / F Adm Date: 3 Loc: Room: [address] [place] [address] Type: ADM IN Attending Dr: Gina Poole [...] Units/3 Ml Insuln.Pen SUBCUT 11/19/23 11:59 TID.WM.HS [facility] Protocol Magnesium Oxide 400 mg [...] <Electronically signed by Gina Poole DO> 11/19/22 1153 [facility] Work Phone: 1(680) 194-686607-20-2023 History and physical note Author Gina Poole [facility] November 18, 2022 10:13pm Note Date/Time November 18, 2022 10:1 1pm [facility] [address] [place] [address] Hospitalist H&P Signed Patient: Martin Hagen MR#: [id number] : 1950 Acct:[id number] Age/Sex: 71 / F Adm Date: 3 Loc: Room: [address] [place] [address] Type: ADM IN Attending Dr: Gina Poole [...] negative unless noted below or in HPI [facility] Vacc[facility] for [facility]-19?: No Medical History (Updated [...] % (Auto) 22.5 % (.) 11/18/22 17:51 Ripley % (Auto) 5.7 % (.) 11/18/22 17:51 Eos % (Auto) 1.7 % (.) 11/18/22 17:51 Baso % (Auto) 0.7 % (.) 11/18/22 17:51 Nucleat RBC Rel Count 0.0 /100 WBC (0-0.5) 11/18/22 17:51 Neut # (Auto) 4.7 x10E3/uL (1.8-7.7) 11/18/22 17:51 Lymph # (Auto) 1.5 x10E3/uL (1.00-4.8) 11/18/22 17:51 Ripley # (Auto) 0.4 x10E3/uL (0.0-0.8) 11/18/22 17:51 [...] <Electronically signed by Gina Poole DO> 11/18/22 2219 [facility] Work Phone: 1(415) 979-518706-27-2023 NoteHypertension is well controlled 108/62 Continue all meds Renal function stable for her- will continue to monitor and pt states she is to start F[facility]Un[facility]06-27-2023 NoteNYHC- III- currently fluid overloaded and weight gain of 15 pounds in 2 weeks Continue GDMT- farxiga Diuretic therapy-increase bumex to 2mg in am and 1 mg in pm, repeat BMP next week Monitor daily weights, I&O, fluid restriction 1.5-2L/day, renal function and electrolytes- RTC 1month for re-evalautionUnMercer County Community Hospital06-27-2023 Note Repeat limited echo to assess RV function, RVSP- rt sided pressures, and noted D shaped septum on inpt echo.[facility]06-27-2023 Note ZIX2lt8-UHQs= 4 continue metoprolol for rate control, and eliquis anticoagulationUnMercer County Community Hospital06-27-2023 NotePatient here for follow up [facility] [...] weakness. All other systems reviewed and are negative.[facility] 10-27-2022 NoteUTP CARDIOLOGY PROGRESS NOTE HPI: [...] daily, renal function was CR 1.5 at [place]- no aldactone was initiated. She denied chest pain, leg swelling, fever, chills. She recently was inpt at [facility] for resp failure, exacerbation of HFpEF, [...] Tachycardia - sinus Hypertension Paroxysmal atrial fibrillation; VBPLW0EANm - 4 (age, female, HTN, HF) - [...] reviewed CV Testin10/09/22 Echo (more content not included)...[facility]05-23-2023 Note [facility] Clinic Note Chief Complaint: patient is [...] Eliquis. HPI: Martin was originally seen by [facility] during her admission to [facility] at the beginning of March,. She [...] 04/13/2022 Today she was just discharged from [facility] where she was admitted for UTI. [...] pressures. Event monitor: Sinus (more content not included)...[facility]04-27-2023 Evaluation note* Encounter Date Diagnosis Assessment [...] We will check PTH and vitamin D. [employer] Other 03-29-2023 Hospital Discharge instructions Patient Education [...] 04/19/2006 Document Revised: 01/06/2019 Document Reviewed: 03/19/2017 [employer] Patient Education [employer]. Follow Up Care 06/10/2022 11:44:43 With:Alec XIE, CARLY [place], URO Address: When:Within 6 Month(s) [facility] 03-06-2023 NoteBELLFORMERLY [facility] Cardiology Clinic Note Chief Complaint: Patient here for 3 mo follow up CHF and afib. She was started on spironolactone at last apt in Apr 2022 by Linette Sanchez CNP. Had labs a few days after that. Denies chest pain and palpitations. Denies lightheadedness and bleeding on Eliquis. HPI: Martin was originally seen by [facility] during her admission to [facility] at the beginning of March,. She [...] 04/13/2022 Today she was just discharged from [facility] where she was admitted for UTI. [...] fraction (HFrEF) Tachycardia Hypertension Paroxysmal atrial fibrillation; LHKEH1RUBf - 4 (age, female, HTN, HF) - she requires long-term anticoagulation for stroke prophylaxis. She denies bleeding issues. Continue Eliquis 5mg BID. Nonrheumatic aortic valve stenosis; moderate on echocardiogram 08/2021 Benign hypertensive kidney disease with chronic kidney disease stage I through stage IV Plan: The patient's daughter tells me that her mother's heart rate is typical (more content not included)...[facility]02-08-2023 Hospital Discharge instructions Patient Education 06/10/2022 [...] Follow these instructions at home: Medicines Take vycs-rfr-nxjjfjq and prescription medicines only as told by [...] or the blood stops without treatment. Take kmut-uzw-fvsvxoj and prescription medicines only as told by your health care provider. Drink enough fluid to keep your urine clear or pale yellow. This information is not intended to replace advice given to you by your health care provider. Make sure you discuss any questions you have with your health care provider. Document Released: 04/19/2006 Document Revised: 09/13/2019 Document Reviewed: 05/22/2017 [employer] Patient Education 2020 [employer]. Follow Up Care 05/06/2022 14:07:41 With:Alec XIE, CARLY [place], URO Address: When: Unknown [facility] 12-12-2022 NotePatient here for follow up [facility] for CHF. She was seen as inpatient consult on 03/06/2022 by Madi Sanchez CNP. She was just discharged from [facility] again today for UTI and pneumonia. She will be having iron infusions set up soon for anemia. Denies chest pain and bleeding on Eliquis. Review of Systems Cardiovascular: Positive for dyspnea on exertion. Respiratory: Positive for shortness of breath. Musculoskeletal: Positive for muscle weakness. Neurological: Positive for seizures (hx of). All other systems reviewed and are negative.[facility] 04-13-2022 NoteCardiovascular Medicine [facility] SUBJECTIVE Chief Complaint Patient presents with Congestive Heart Failure Atrial Fibrillation Martin Hagen is a 71 y.o. female here for follow-up. MARIBEL Love was originally seen by [facility] during her admission to [facility] at the beginning of March,. She [...] 04/13/2022 Today she was just discharged from [facility] where she was admitted for UTI. [...] is warm and dry. (more content not included)...[facility]10-17-2022 Hospital Discharge instructions Patient Education 02/16/2022 [...] drinks. ?Tomatoes and foods made with tomatoes. ?Farmers or spicy foods. ?Chocolate and peppermint. Do not drink alcohol. General instructions Take hugy-zsi-cewrbhn and prescription medicines only as told by [...] unsweetened, w/added ascorbic acid 1 cup 0.5 Monarch 1 cup 0.7 Vegetables Cooked Green beans 1 cup 4.0 Carrots 1/2 cup sliced 2.3 Peas 1 cup 8.8 Potato (baked, with skin) 1 medium potato 3.8 Raw Chrisney (with peel) 1 cucumber 1.5 Lettuce 1 [...] 8.7 Peanuts 1/2 cup 7.9 Chart from [facility] 02/16/2022 13:00:15 Colonoscopy, Care After Surgery [...] With:Kylah BELL Address: [address] [place] [address] Business (1) When: Unknown Comments:Call for any problems.Office will call to schedule follow up appointment (appointment for 1-2 weeksfrom today) [facility]10-17-2022 Evaluation + Plan noteExtracted from: Title:Anesthesia post op endo Author:Shawn Huddleston MD Date:02/16/22 Plan Transfer/ Discharge: Patient can be discharged from PACU when criteria met. Condition good. Extracted from: Title:Anesthesia Pre-Op endo Author:Mine Huddleston MD Date:02/16/22 Plan [employer]esthesi[employer] (ASA) physical status classification: [...] Diff 12/31/21 * Comprehensive Metabolic Panel 12/31/21 [facility]08-[facility]-2022 Hospital Discharge instructions Patient Education 12/31/2021 [...] drinks. ?Tomatoes and foods made with tomatoes. ?Farmers or spicy foods. ?Chocolate and peppermint. Do not drink alcohol. General instructions Take njqv-krq-ycacoea and prescription medicines only as told by [...] 07/09/2004 Document Revised: 08/15/2018 Document Reviewed: 08/15/2018 [employer] Patient Education 2020 [facility] Follow Up Care 11/24/2021 14:47:03 With:Lani Wasserman CNP Address: When:1 to 2 weeks [facility] 08-13-2022 Evaluation note* Encounter [...] understanding and is agreeable with treatment plan [employer] Other 12-01-2021 History general Narrative - Reported* Type Description Date Medical History Macular degeneration bilateral e yes Medical History Continuous oxygen 2L/NC Medical History CHF- Does not follow with Cardio logy, managed by PCP Dr. Lora Medical History COPD Medical History Hx of COVID 04/2021 [employer] Other 12-01-2021 History general Narrative - Reported* [...] History HYSTERECTOMY 1994 Hospitalization History SEE ABOVE [employer] Other Consult note Author Rey Arriaga [facility] November 19, 2022 2:59pm Note Date/Time November 19, 2022 2:59 pm [facility] [address] [place], [place] [id number] Cardiology Consult Note Signed Patient: Martin Hagen MR#: [id number] : 1950 Acct:[id number] Age/Sex: 71 / F Adm Date: 3 Loc: Room: [address] [place] [address] Type: ADM IN Attending Dr: Gina Poole [...] Lymph # (Auto) 1.5 1.6 (1.00-4.8) x10E3/uL Ripley # (Auto) 0.4 0.4 (0.0-0.8) x10E3/uL Eos [...] signed by MD Rey Arriaga> 11/19/22 1459 [facility] Work Phone: Discharge summary Author Gina Poole [facility] November 21, 2022 3:38pm Note Date/Time November 21, 2022 3:39 pm [facility] [address] [place] [address] Discharge Summary Signed Patient: Martin Hagen MR#: [id number] : 1950 Acct:[id number] Age/Sex: 71 / F Adm Date: 3 Loc: Room: [address] [place] [address]: Gina Poole DO Copies to: [...] % (Auto) 70.8, Lymph % (Auto) 18.9, Ripley % (Auto) 7.3, Eos % (Auto) 2.7, Baso % (Auto) 0.3, Nucleat RBC Rel Count 0.1, Neut # (Auto) 4.1, Lymph # (Auto) 1.1, Ripley # (Auto) 0.4, Eos # (Auto) 0.2, [...] signs - Medication management and education - [facility] on 11/26 - result to [...] signed by Gina Poole, > 11/21/22 1538 [facility] Work Phone: Evaluation + Plan note Future Appointments Appointment Date:02/06/2022 01:00:00 PM Scheduled Provider: Location:[facility] Appointment Type:Surgery PAT COVID Testing Appointment Date:02/16/2022 10:30:00 AM Scheduled Provider: Location:[facility] Appointment Type:Surgery FT Appointment Date:02/16/2022 12:30:00 PM Scheduled Provider: Location:[facility] Appointment Type:Surgery FT Future Scheduled Tests Laboratory* Fecal WBC Lactoferrin 12/31/21 * Giardia lamblia, Direct Detection EIA 12/31/21 * O & P Exam, Routine 12/31/21 * Clostridium difficile by PCR 12/31/21 * Enteric Panel by PCR 12/31/21 * CBC w/ Auto Diff 12/31/21 * Comprehensive Metabolic Panel 12/31/21 Radiology* CT Abdomen/Pelvis w/ Contrast 12/31/21 [facility] Evaluation + Plan note Future Appointments Appointment Date:02/16/2022 10:30:00 AM Scheduled Provider: Location:[facility] Appointment Type:Surgery FT Appointment Date:02/16/2022 12:30:00 PM Scheduled Provider: Location:[facility] Appointment Type:Surgery FT Future Scheduled Tests Laboratory* Fecal WBC Lactoferrin 12/31/21 * Giardia lamblia, Direct Detection EIA 12/31/21 * O & P Exam, Routine 12/31/21 * Clostridium difficile by PCR 12/31/21 * Enteric Panel by PCR 12/31/21 * CBC w/ Auto Diff 12/31/21 * Comprehensive Metabolic Panel 12/31/21 [facility] App[facility]ments Appointment Date:06/10/2022 09:30:00 AM Scheduled Provider:Jacqui Michael MD Location:[facility] Appointment Type:URO Office Visit Future Scheduled Tests Laboratory* Fecal WBC Lactoferrin 12/31/21 * Giardia lamblia, Direct Detection EIA 12/31/21 * O & P Exam, Routine 12/31/21 * Clostridium difficile by PCR 12/31/21 * Enteric Panel by PCR 12/31/21 * CBC w/ Auto Diff 12/31/21 * Comprehensive Metabolic Panel 12/31/21 [facility] Future Appointments Appointment Date:06/24/2022 08:30:00 AM Scheduled Provider: Location:[facility] Appointment Type:URO Nurse Visit Appointment Date:07/29/2022 09:00:00 AM Scheduled Provider:Jacqui Michael MD Location:[facility] Appointment Type:URO Office Visit Diagnostic Tests [...] Comprehensive Metabolic Panel 12/31/21 [facility] evaluation + Plan note Future Appointments Appointment Date:06/24/2022 08:30:00 AM Scheduled Provider: Location:[facility] Appointment Type:URO Nurse Visit Appointment Date:07/29/2022 09:00:00 AM Scheduled Provider:Jacqui Michael MD Location:[facility] Appointment Type:URO Office Visit Diagnostic Tests Pending * Urine Culture 06/10/22 Future Scheduled Tests Laboratory* Fecal WBC Lactoferrin 12/31/21 * Giardia lamblia, Direct Detection EIA 12/31/21 * O & P Exam, Routine 12/31/21 * Clostridium difficile by PCR 12/31/21 * Enteric Panel by PCR 12/31/21 * CBC w/ Auto Diff 12/31/21 * Comprehensive Metabolic Panel 12/31/21 [facility] Appointments Appointment Date:07/29/2022 09:00:00 AM Scheduled Provider:Jacqui Michael MD Location:[facility] Appointment Type:URO Office Visit Future Scheduled Tests Laboratory* Fecal WBC Lactoferrin 12/31/21 * Giardia lamblia, Direct Detection EIA 12/31/21 * O & P Exam, Routine 12/31/21 * Clostridium difficile by PCR 12/31/21 * Enteric Panel by PCR 12/31/21 * CBC w/ Auto Diff 12/31/21 * Comprehensive Metabolic Panel 12/31/21 [facility] evaluation + Plan note Future Appointments Appointment Date:02/03/2023 09:00:00 AM Scheduled Provider:Jacqui Michael MD Location:[facility] Appointment Type:URO Office Visit Future Scheduled Tests Laboratory* Fecal WBC Lactoferrin 12/31/21 * Giardia lamblia, Direct Detection EIA 12/31/21 * O & P Exam, Routine 12/31/21 * Clostridium difficile by PCR 12/31/21 * Enteric Panel by PCR 12/31/21 * CBC w/ Auto Diff 12/31/21 * Comprehensive Metabolic Panel 12/31/21 [facility] evaluation + Plan note Future Appointments Appointment Date:02/08/2023 09:45:00 AM Scheduled Provider: Location:[facility] Appointment Type:Urology CALL PAT FT Appointment Date:02/22/2023 10:45:00 AM Scheduled Provider: Location:[facility] Appointment Type:Urology FT [facility] evaluation + Plan note Future Appointments Appointment Date:04/28/2023 09:45:00 AM Scheduled Provider:Jacqui Michael MD Location:[facility] Appointment Type:URO [facility] Future Appointments Appointment Date:05/14/2023 01:20:00 PM Scheduled Provider:Lani Wasserman CNP Location:[facility] Appointment Type:[facility] Follow [facility]* Diagnosis Onset Date Resolution Status CHF (congestive heart failure) acute CHF exacerbation acute [facility] Work Phone: Evaluation note* Diagnosis Onset Date Resolution Status Acute diastolic CHF (congest joan heart failure), NYHA class 3 acute Aortic stenosis acute CHF (congestive heart failure) acute CHF exacerbation acute Pulmonary hypertension acute [facility] Work Phone: Evaluation note* [...] Diabetes mellitus type II, non insulin dependent ([facility]/HCC) Type II or unspecified type diabetes mellitus without mention of complication, not stated as uncontrolled BMI 31.0-31.9,adult Mixed hyperlipidemia Essential hypertension Unspecified essential hypertension documented in this encounter [facility] Work Phone: Evaluation note* Diagnosis Nonrheumatic aortic valve stenosis Pulmonary hypertension (CMS/HCC) Other chronic pulmonary heart diseases documented in this encounter [facility] Work Phone: Evaluation note* Diagnosis Nonrheumatic aortic valve stenosis Pulmonary hypertension (CMS/HCC) Other chronic pulmonary heart diseases documented in this encounter [facility] Work Phone: History and physical note Author Gina Poole [facility] November 18, 2022 10:13pm Note Date/Time November 18, 2022 10:1 1pm [facility] [address] [place] [address] Hospitalist H&P Signed Patient: Martin Hagen MR#: [id number] : 1950 Acct:[id number] Age/Sex: 71 / F Adm Date: 3 Loc: 4 Room: [address] [place] [address] Type: ADM IN Attending Dr: Gina Poole [...] dulaglutide 0.75 mg/0.5 mL subcutaneous pen injector ([facility]) 0.75 mg subcut QWEEK 11/18/22 [...] % (Auto) 22.5 % (.) 11/18/22 17:51 Ripley % (Auto) 5.7 % (.) 11/18/22 17:51 Eos % (Auto) 1.7 % (.) 11/18/22 17:51 Baso % (Auto) 0.7 % (.) 11/18/22 17:51 Nucleat RBC Rel Count 0.0 /100 WBC (0-0.5) 11/18/22 17:51 Neut # (Auto) 4.7 x10E3/uL (1.8-7.7) 11/18/22 17:51 Lymph # (Auto) 1.5 x10E3/uL (1.00-4.8) 11/18/22 17:51 Ripley # (Auto) 0.4 x10E3/uL (0.0-0.8) 11/18/22 17:51 [...] <Electronically signed by Gina Poole DO> 11/18/22 6265 [facility] Work Phone: History of Present illness [...] medication regimen. She denies medication side effects. [facility] DO Work Phone: Hospital course Narrative No data available for this section [facility] Hospital Discharge instructions No data available for this section [facility]* Initiate Home Health Time Frame: 1 Day, Location: Determined By Patient Additional Instructions Home Health to manage care: - Full code - PT/OT eval and treat - Routine vital signs - Medication management and education - BMP on 11/26 - result to Primary Care Provider -[facility] Work Phone: Progress note No data available for this section [facility] Progress note Author Gina Poole [facility] November 19, 2022 11:54am Note Date/Time November 19, 2022 11:5 4am [facility] [address] [place] [address] Hospitalist Progress Note Signed Patient: Martin Hagen MR#: [id number] : 1950 Acct:[id number] Age/Sex: 71 / F Adm Date: 3 Loc: Room: [address] [place] [address] Type: ADM IN Attending Dr: Gina oPole DO Copies to: ~ Date of Service: [...] <Electronically signed by Gina Poole, > 11/19/22 6357 [facility] Work Phone: Progress note Author Rey Arriaga [facility] November 20, 2022 10:30am Note Date/Time November 20, 2022 10:3 0am [facility] [address] [place], [place] [id number] Cardiology Progress Note Signed Patient: Martin Hagen MR#: [id number] : 1950 Acct:[id number] Age/Sex: 71 / F Adm Date: 3 Loc: 4 Room: [address] [place] [address] Type: ADM IN Attending Dr: Gina Poole [...] MPV Neut % (Auto) Lymph % (Auto) Ripley % (Auto) Eos % (Auto) Baso % (Auto) Nucleat RBC Rel Count Neut # (Auto) Lymph # (Auto) Ripley # (Auto) Eos # (Auto) Baso # [...] % (Auto) 68.4 Lymph % (Auto) 22.4 Ripley % (Auto) 6.7 Eos % (Auto) 2.1 Baso % (Auto) 0.4 Nucleat RBC Rel Count 0.1 Neut # (Auto) 3.7 Lymph # (Auto) 1.2 Ripley # (Auto) 0.4 Eos # (Auto) 0.1 [...] MPV Neut % (Auto) Lymph % (Auto) Ripley % (Auto) Eos % (Auto) Baso % (Auto) Nucleat RBC Rel Count Neut # (Auto) Lymph # (Auto) Ripley # (Auto) Eos # (Auto) Baso # [...] signed by MD Rey Arriaga> 11/20/22 1030 [facility] Work Phone: Progress note Author Gina Poole [facility] November 20, 2022 2:12pm Note Date/Time November 20, 2022 2:12 pm [facility] [address] [place] [address] Hospitalist Progress Note Signed Patient: Martin Hagen MR#: [id number] : 1950 Acct:[id number] Age/Sex: 71 / F Adm Date: 3 Loc: Room: [address] [place] [address] Type: ADM IN Attending Dr: Gina Poole [...] Insuln.Pen SUBCUT 11/19/23 11:59 Not Given TID.WM.HS [facility] Protocol Magnesium Oxide 400 mg [...] <Electronically signed by Gina Poole DO> 11/20/[address] [place] [address] Work Phone: Progress note Author Colin Carrillo [facility] November 21, 2022 11:31am Note Date/Time November 21, 2022 11:3 1am [facility] [address] [place] [address] Cardiology Progress Note Signed Patient: Martin Hagen MR#: [id number] : 1950 Acct:[id number] Age/Sex: 71 / F Adm Date: 3 Loc: Room: [address] [place] [address] Type: ADM IN Attending Dr: Gina Poole [...] % (Auto) 70.8 Lymph % (Auto) 18.9 Ripley % (Auto) 7.3 Eos % (Auto) 2.7 Baso % (Auto) 0.3 Nucleat RBC Rel Count 0.1 Neut # (Auto) 4.1 Lymph # (Auto) 1.1 Ripley # (Auto) 0.4 Eos # (Auto) 0.2 Baso # (Auto) 0.0 PHA Creatinine Clear Sodium Potassium Chloride Carbon Dioxide Anion Gap BUN Creatinine Est GFR (CKD-EPI) Glucose POC Glucose 123 135 Calcium 11/21/22 11/21/22 04:47 08:37 Corrected WBC Uncorrected WBC Count RBC Hgb Hct MCV MCH MCHC RDW Plt Count MPV Neut % (Auto) Lymph % (Auto) Ripley % (Auto) Eos % (Auto) Baso % (Auto) Nucleat RBC Rel Count Neut # (Auto) Lymph # (Auto) Ripley # (Auto) Eos # (Auto) Baso # [...] aggressive diuresis Documented By: Colin Carrillo MD, [facility] 3 1127 Signed By: <Electronically signed by MD PLACIDO Carrillo> 11/21/22 1131 [facility] Work Phone: Reason for referral (narrative)* Consultation (Routine) - Authorized Specialty Diagnoses / Procedures Referred By Contac t Referred To Contact Cardiology Diagnoses Paroxysmal atrial fibrillation (CMS/HCC) Procedures Follow Up In Cardiology Annika Kaba, WEB SOFTWARE ENGINEER-PROJECT EXECUTIVE [facility] [facility] 2, [address] [address] Referral ID Status Reason Start Date Expiration Date V isits Requested Visits Authorized [id number] Authorized 03/30/2023 03/29/2024 1 1 * CV Imaging (Routine) - Pending Review Specialty Diagnoses / Procedures Referred By Contac t Referred To Contact Cardiology Diagnoses Nonrheumatic aortic valve stenosis Pulmonary hypertension (CMS/HCC) Procedures Transthoracic Echo (TTE) Complete SD ECHO TRANSTHORC R-T 2D W/WO M-MODE REC F-UP/LMTD SD DOP ECHOCARD COLOR FLOW VELOCITY MAPPING SD DOP ECHOCARD PULSE WAVE W/SPECTRAL F-UP/LMTD STD Annika Kaba APRN-PROJECT EXECUTIVE [facility] [facility] 2, [address] [address] Referral ID Status Reason Start Date Expiration Date Visits Requested Visits Authorized [id number] Pending Review Perform Procedure 03/29/2024 1 1 [facility] Work Phone: Summary Purpose Family History [...] hypertension (CMS/HCC) Procedures Transthoracic Echo (TTE) Complete SD ECHO TRANSTHORC R-T 2D W/WO M-MODE REC F-UP/LMTD SD DOP ECHOCARD COLOR FLOW VELOCITY MAPPING SD DOP ECHOCARD PULSE WAVE W/SPECTRAL F-UP/LMTD STD Annika Kaba, WEB SOFTWARE ENGINEER-PROJECT EXECUTIVE [facility] [facility], [facility] [address] [place] [address] Referral ID Status Reason Start Date Expiration Date Visits Requested Visits Authorized [id number] Pending Review Perform Procedure 3 03/29/2024 1 1 Additional Source Comments INFORMATION SOURCE (unrecogn ized section and content) DATE CREATED AUTHOR 10/21/2017 [facility] DATE CREATED AUTHOR AUTHOR'S ORGANIZ ATION 10/06/2021 [facility] dical Specialist DATE CREATED AUTHOR AUTHOR'S ORGANIZ ATION 09/13/2022 [facility] DATE CREATED AUTHOR AUTHOR'S ORGANIZ ATION 11/02/2022 [facility] DATE CREATED AUTHOR AUTHOR'S ORGANIZ ATION 12/24/2022 [facility] DATE CREATED AUTHOR AUTHOR'S ORGANIZ ATION 12/29/2022 [facility] [place] DATE CREATED AUTHOR AUTHOR'S ORGANIZ ATION 12/30/2022 [employer] DATE CREATED AUTHOR AUTHOR'S ORGANIZ ATION 04/07/2023 [facility] dical Specialists [facility] DATE CREATED AUTHOR AUTHOR'S ORGANIZ ATION 05/07/2023 Dipak Pulido [facility] DATE CREATED AUTHOR AUTHOR'S ORGANIZ ATION 05/09/2023 [facility] REASON FOR VISIT (unrecogniz ed section and content) Reason Comments Follow-up 4m Specialty Diagnoses / Procedures Referred By Contcharles t Referred To Contact Cardiology Diagnoses Nonrheumatic aortic valve stenosis Pulmonary hypertension (CMS/HCC) Procedures Transthoracic Echo (TTE) Complete SD ECHO TRANSTHORC R-T 2D W/WO M-MODE REC F-UP/LMTD SD DOP ECHOCARD COLOR FLOW VELOCITY MAPPING SD DOP ECHOCARD PULSE WAVE W/SPECTRAL F-UP/LMTD STD Annika Kaba, WEB SOFTWARE ENGINEER-PROJECT EXECUTIVE [facility] [facility], [address] [place] [address] Referral ID Status Reason Start Date Expiration Date Visits Requested Visits Authorized [id number] Pending Review Perform Procedure 3 03/29/2024 1 [...] Estrada MD Other Provider Active Sonia Urena [facility]- Other Provider Active Tatiana Shafer MD Other Provider Active Team Status: Active Member Role Status Arlyn Barber II MD Primary Care Provider Active Venkatesh Trammell DO Emergency Provider Active Gina Poole DO Admit Provider, Attending Provider Active Casting Chipper Relationship Specialty Start Date End Date Shawn Barber MD [address] [facility] [address] [place] [address] PCP - General 12/28/22 Shawn Barber MD [address] [place] [address] 12/28/22 Casting Chipper Relationship Specialty Start Date End Date Shawn Barber MD [address] [place] [address] PCP - General 12/28/22 Shawn Barber MD [address] [place] [address] 12/28/22 Casting Chipper Relationship Specialty Start Date End Date Shawn Barber MD [address] [place] [address] PCP - General 12/28/22 Shawn Barber MD [address] [place] [address] 12/28/22 Goals (unrecognized section and content) Goals [...] BE BASED ON THE PRIMARY CLINICAL RECORDS. [employer] [facility]. provides no warranty or guarantee of the accuracy or completeness of information in this document.
[2023-05-11 20:58] LABS: Bilirubin Urine NEGATIVE (NEGATIVE); Blood Urine TRACE-I (NEGATIVE); Clarity Urine CLEAR (CLEAR); Color Urine LT. YELLOW (YELLOW); Glucose Urine UA NEGATIVE (NEGATIVE); Ketones Urine NEGATIVE (NEGATIVE); Leukocyte Esterase Urine LARGE (NEGATIVE); Nitrite Urine NEGATIVE (NEGATIVE); Protein Urine 30 mg/dL (NEG/TRACE); Specific Gravity Urine 1.015 (1.005-1.025); Urobilinogen Urine 0.2 EU/dL (0.2-1.0); pH Urine 5.5 (5.0-9.0)
[2023-05-11 21:04] LABS: Bacteria Urine MODERATE #/HPF (NONE SEEN); Crystals Seen? None Seen #/HPF (None Seen); Mucus Urine NONE SEEN (NONE SEEN)
[2023-05-11 21:05] LABS: Cast Seen? NONE SEEN #/LPF (NONE SEEN); Squamous Epithelial Cell Urine NONE SEEN #/LPF (NONE/RARE); Urine Culture Indicated ALREADY ORDERED
[2023-05-11] MEDS: BUDESONIDE 0.5 MG/2 ML AMPULE NEB IH (21:05)
[2023-05-11] MEDS: ALBUTEROL SULFATE 2.5 MG/3 ML VIAL NEB IH (21:05)
[2023-05-11] MEDS: OMEPRAZOLE 40 MG CAPSULE.DR PO (21:09)
[2023-05-11] MEDS: CALCIUM CARBONATE 500 MG (200MG ELEMENTAL) TAB CHEW PO (21:09)
[2023-05-11] MEDS: LEVETIRACETAM 500 MG TABLET 250 MG PO (21:09)
[2023-05-11] MEDS: METOPROLOL TARTRATE 50 MG TABLET PO (21:09)
[2023-05-11] MEDS: MAGNESIUM OXIDE 400 MG TABLET PO (21:09)
[2023-05-11 21:58] LABS: Troponin I High Sensitivity 13.2 pg/mL (4.0-51.3)
[2023-05-12] VITALS (18 sets, daily range): BP systolic 118–137; BP diastolic 66–77; PULSE 87–102; RESP 18–22; TEMP 36.6–36.9; O2SAT 96–100
[2023-05-12] MEDS: 0.9 % SODIUM CHLORIDE 1,000 ML 125 ML IV ×3 (00:11→23:07)
[2023-05-12] MEDS: CYCLOBENZAPRINE HCL 10 MG TABLET PO ×2 (00:18→21:04)
[2023-05-12] MEDS: ACETAMINOPHEN 500 MG TABLET 1000 MG PO ×3 (00:18→19:56)
--- NOTE | 2023-05-12 03:20 | PC.NURSE ---
loose watery stool
[2023-05-12] MEDS: ALBUTEROL SULFATE 2.5 MG/3 ML VIAL NEB IH ×4 (04:01→20:13)
[2023-05-12] MEDS: CALCIUM CARBONATE 500 MG (200MG ELEMENTAL) TAB CHEW PO ×2 (05:24→21:00)
[2023-05-12 05:28] LABS: Basophils Percent Auto 0.1 % (0.2-2.0); Eosinophils Percent Auto 0.1 % (0.9-7.0); Hematocrit 25.4 % (36.0-48.0); Hemoglobin 8.7 g/dL (12.0-16.0); Immature Granulocytes Abs Auto 0.06 10^3/uL (0.00-0.03); Immature Granulocytes Pct Auto 0.6 % (0.0-0.5); Lymphocytes Absolute Auto 2.1 10^3/uL (1.2-3.8); Lymphocytes Percent Auto 20.7 % (20.5-60.0); Mean Corpuscular HGB Conc 34.3 g/dL (29.9-35.2); Mean Corpuscular Hemoglobin 30.2 pg (26.7-34.0); Mean Corpuscular Volume 88.2 fL (81.0-99.0); Mean Platelet Volume 9.5 fL (9.5-13.5); Monocytes Absolute Auto 0.5 10^3/uL (0.3-0.8); Monocytes Percent Auto 4.8 % (1.7-12.0); Neutrophils Absolute Auto 7.4 10^3/uL (1.4-6.5); Neutrophils Percent Auto 73.7 % (43.0-75.0); Platelet Count 186 10^3/uL (150-450); Red Blood Count 2.88 10^6/uL (4.20-5.40); Red Cell Distribution Width 12.9 % (11.0-15.0)
[2023-05-12 05:54] LABS: Alanine Aminotransferase 25 U/L (14-59); Albumin Globulin Ratio 0.6; Albumin Level 2.4 g/dL (3.4-5.0); Alkaline Phosphatase 92 U/L (46-116); Anion Gap 17.6; Aspartate Amino Transferase 27 U/L (15-37); BUN Creatinine Ratio 26.9; Bilirubin Direct 0.2 mg/dL (0.0-0.2); Bilirubin Total 0.5 mg/dL (0.2-1.0); Calcium 6.7 mg/dL (8.5-10.1); Carbon Dioxide 23.7 mmol/L (21.0-32.0); Chloride 88 mmol/L (98-107); Estimated GFR (African America 20 (>=60); Estimated GFR (Non-African Ame 16 (>=60); Globulin 4.3 g/dL; Glucose 123 mg/dL (74-106); Potassium 3.3 mmol/L (3.5-5.1); Sodium 126 mmol/L (136-145); Total Protein 6.7 g/dL (6.4-8.2)
--- NOTE | 2023-05-12 08:08 | CM.NOTE ---
Rounds made with Dr. Uriarte, discussed with pt about transfer to higher level of care for mandibular fx and femur fx. Pt verbalizes understanding and is in agreement to transfer.
[2023-05-12] MEDS: POTASSIUM CHLORIDE 40 MEQ in 0.9 % SODIUM CHLORIDE 250 ML 67.5 MEQ IV (08:59)
[2023-05-12] MEDS: 0.9 % SODIUM CHLORIDE 1,000 ML 1000 ML IV (09:00)
[2023-05-12] MEDS: LISINOPRIL 20 MG TABLET PO (09:03)
[2023-05-12] MEDS: FLUOXETINE HCL 20 MG CAPSULE 40 MG PO (09:04)
[2023-05-12] MEDS: OMEPRAZOLE 40 MG CAPSULE.DR PO ×2 (09:05→20:59)
[2023-05-12] MEDS: LEVETIRACETAM 250 MG TABLET PO ×2 (09:05→20:59)
[2023-05-12] MEDS: METOPROLOL TARTRATE 50 MG TABLET PO ×2 (09:05→20:59)
[2023-05-12] MEDS: ATORVASTATIN CALCIUM 20 MG TABLET PO (09:05)
[2023-05-12] MEDS: MAGNESIUM OXIDE 400 MG TABLET PO ×2 (09:05→20:59)
--- NOTE | 2023-05-12 10:11 | CM.NOTE ---
Important Message From Medicare discussed with pt, pt verbalizes understanding and signs paper. Original given to pt and copy placed on pt's chart.
--- NOTE | 2023-05-12 10:27 | P.HP_ITS ---
H&P: HPI History of Present Illness Chief complaint: FALL Narrative: Patient sustained a fall at home. Had significant right-sided leg pain. Seen and evaluated in the emergency room and found to have a right femur fracture. Further scans as screening for the fall did demonstrate left radicular fracture as well. Review of Systems ROS Status of ROS 10 or more systems reviewed and unremark able except as noted in history and below [facility] Medical History (Updated 05/11/23 @ 18:32 by KIA Mo) Acute kidney injury superimposed on CKD ?N17.9 - Acute kidney failure, unspecified (ICD-10) ?N18.9 - Chronic kidney disease, unspecified (ICD-10) UTI (urinary tract infection) ?N39.0 - Urinary tract infection, site not specified (ICD-10) Hypokalemia ?E87.6 - Hypokalemia (ICD-10) Hypocalcemia ?E83.51 - Hypocalcemia (ICD-10) Hypomagnesemia ?E83.42 - Hypomagnesemia (ICD-10) Generalized seizure ?R56.9 - Unspecified convulsions (ICD-10) Acute otitis externa of left ear ?H60.502 - Unspecified acute noninfective otitis externa, left ear (ICD-10) UTI (urinary tract infection) due to Enterococcus ?N39.0 - Urinary tract infection, site not specified (ICD-10) ?B95.2 - Enterococcus as the cause of diseases classified elsewhere (ICD-10) Adrenal adenoma ?D35.00 - Benign neoplasm of unspecified adrenal gland (ICD-10) (HFpEF) heart failure with preserved ejection fraction ?I50.30 - Unspecified diastolic (congestive) heart failure (ICD-10) Chronic respiratory failure with hypoxia ?J96.11 - Chronic respiratory failure with hypoxia (ICD-10) Anemia due to chronic kidney disease ?N18.9 - Chronic kidney disease, unspecified (ICD-10) ?D63.1 - Anemia in chronic kidney disease (ICD-10) Heart murmur ?R01.1 - Cardiac murmur, unspecified (ICD-10) UTI due to Klebsiella species ?N39.0 - Urinary tract infection, site not specified (ICD-10) ?B96.89 - Other specified bacterial agents as the cause of diseases classified elsewhere (ICD-10) C. difficile diarrhea ?A04.72 - Enterocolitis due to Clostridium difficile, not specified as recurrent (ICD-10) Obesity ?E66.9 - Obesity, unspecified (ICD-10) Depression ?F32.A - Depression, unspecified (ICD-10) Hypertension ?I10 - Essential (primary) hypertension (ICD-10) Atrial fibrillation ?I48.91 - Unspecified atrial fibrillation (ICD-10) CKD (chronic kidney disease) stage 3, GFR 30-59 ml/min ?N18.30 - Chronic kidney disease, stage 3 unspecified (ICD-10) Reducible umbilical hernia ?K42.9 - Umbilical hernia without obstruction or gangrene (ICD-10) Hernia of anterior abdominal wall ?K43.9 - Ventral hernia without obstruction or gangrene (ICD-10) Diabetes ?E11.9 - Type 2 diabetes mellitus without complications (ICD-10) Anemia ?D64.9 - Anemia, unspecified (ICD-10) Hypocalcemia ?E83.51 - Hypocalcemia (ICD-10) CHF (congestive heart failure) ?I50.9 - Heart failure, unspecified (ICD-10) Edema ?R60.9 - Edema, unspecified (ICD-10) CHF (congestive heart failure) ?I50.9 - Heart failure, unspecified (ICD-10) COPD (chronic obstructive pulmonary disease) ?J44.9 - Chronic obstructive pulmonary disease, unspecified (ICD-10) Surgical History (Updated 10/09/22 @ 00:41 by Jennifer Trejo) History of cholecystectomy ?Z90.49 - Acquired absence of other specified parts of digestive tract (ICD- 10) H/O: hysterectomy ?Z90.710 - Acquired absence of both cervix and uterus (ICD-10) Family History (Updated 10/09/22 @ 00:43 by Jennifer Trejo) Family/Other Family history of CHF (congestive heart failure) Family history of COPD (chronic obstructive pulmonary disease) Family history of hypertension Social History Smoking status: Current every day smoker Second hand tobacco smoke exposure: No Non-prescribed substance use: denies use Previous occupational history: retired Known occupational exposures/hazards: Yes Highest level of school completed/degree received: some college, no degree Are you now , , , , never or living with a partner: In a typical week, how many times do you talk on the telephone with family, friends, or neighbors: 3 or more times per week How often do you get together with friends or relatives: 3 or more times per week How often do you attend sikhism or shinto services: 1-3 times per year Do you belong to any clubs or organizations such as sikhism groups unions, [employer] or athletic groups, or school groups: no Total score: 1 Score interpretation: A score of less than or equal to 1 indicates the most socially isolated. Little interest or pleasure in doing things: not at all Feeling down, depressed, or hopeless: not at all Feel stressed/tense/nervous/anxious/difficulty sleeping: not at all Due to disability, difficulty making decisions: No Do you think of yourself as: straight/heterosexual Gender Identity: female Meds Home Medications and Allergies Home Medications Medication Instructions Recorded Confirmed Type albuterol sulfate 90 mcg/actuation 2 puff inhalation Q4H PRN 10/08/22 05/11/23 History aerosol inhaler (Ventolin HFA) shortness of breath or wheezing alprazolam 1 mg tablet 1 mg PO TID PRN anxiety 10/08/22 05/11/23 History apixaban 5 mg tablet (Eliquis) 5 mg PO BID 10/08/22 05/11/23 History brexpiprazole 1 mg tablet (Rexulti) 1 mg PO QDAY 10/08/22 05/11/23 History cyclobenzaprine 10 mg tablet 10 mg PO .qhs PRN muscle spasm 10/08/22 05/11/23 History dulaglutide 0.75 mg/0.5 mL 0.75 mg subcut QWEEK high blood 10/08/22 05/11/23 History subcutaneous pen injector sugar (Trulicity) fluoxetine 40 mg capsule 40 mg PO DAILY 10/08/22 05/11/23 History magnesium oxide 400 mg (241.3 mg 400 mg PO BID 10/08/22 05/11/23 History magnesium) tablet metoprolol tartrate 50 mg tablet 50 mg PO BID 10/08/22 05/11/23 History omeprazole 40 mg capsule,delayed 40 mg PO BID 10/08/22 05/11/23 History release tizanidine 4 mg tablet 4 mg PO TID PRN muscle spasticity 10/08/22 05/11/23 History atorvastatin 20 mg tablet (Lipitor) 20 mg PO DAILY 03/09/23 05/11/23 History bumetanide 2 mg tablet 2 mg PO DAILY 03/09/23 05/11/23 History dapagliflozin propanediol 10 mg 10 mg PO DAILY 03/09/23 05/11/23 History tablet (Farxiga) estradiol 0.01% (0.1 mg/gram) 0.25 appful vaginal .2x a week 03/09/23 05/11/23 History vaginal cream (Estrace) fluticasone 250 mcg-salmeterol 50 1 inh inhalation BID 03/09/23 05/11/23 History mcg/dose blistr powdr for inhalation (Advair Diskus) lisinopril 20 mg tablet 20 mg PO DAILY 03/09/23 05/11/23 History metolazone 2.5 mg tablet 2.5 mg PO DAILY 03/09/23 05/11/23 History promethazine 25 mg tablet 25 mg PO Q6H PRN nausea and 03/09/23 05/11/23 History vomiting [id number] 3.5 3 drp otic (ear) Q4H PRN ear pain 03/21/23 05/11/23 History mg-10,000 unit/mL-1 % ear drops,susp calcium carbonate 200 mg calcium 500 mg (2.5 x 200 mg calcium (500 03/24/23 05/11/23 Rx (500 mg) chewable tablet mg)) PO TID #90 tabs levetiracetam 500 mg tablet 250 mg PO BID 05/11/23 05/11/23 History (Keppra) levetiracetam 500 mg tablet 250 mg PO BID 05/11/23 05/11/23 History (Keppra) Allergies Allergy/AdvReac Type Severity Reaction Status Date / Time No Known Drug Allergies Allergy Verified 03/21/23 19:07 Exam Constitutional Vital Signs, click to edit/add: Last Vital Signs Temp 97.9 F 05/12/23 05:25 Pulse 87 05/12/23 10:00 Resp 18 05/12/23 05:25 BP 128/66 05/12/23 05:25 Pulse Ox 96 05/12/23 05:25 O2 Del Method Nasal Cannula 05/12/23 05:25 O2 Flow Rate 3 05/12/23 05:25 Common normals: no apparent distress, oriented x3 and alert General appearance: cooperative Orientation/consciousness: Yes awake HENMT Common normals: head/scalp atraumatic (Denies pain on palpation of left mandibular area) and oropharynx normal Eye Common normals: PERRL, EOMs intact bilaterally, conjunctivae normal and no scleral icterus General eye: normal appearance of both eyes Chest Common normals: inspection of chest normal Chest: symmetrical chest wall rise Respiratory Common normals: normal respiratory effort Effort & inspection: able to speak in complete sentences and uses accessory muscles (Mild ) Auscultation: crackles (Fine scattered rales BLL) Cardio Common normals: regular rate, regular rhythm, S1 normal heart sound, S2 normal heart sound, no murmurs and peripheral pulses 2+ throughout Heart sounds: murmur (HSM 2/6) GI Common normals: Normal to inspection, nondistended, normoactive bowel sounds present, soft to palpation, non-tender and no hepatosplenomegaly Palpation: soft and no hepatosplenomegaly Bladder/kidney exam: bladder normal to palpation Extremity Other: Did not move right leg secondary to fracture. Neuro Common normals: CN's II-XII intact bilaterally, moves all extremities, no focal motor deficits and no sensory deficits noted Psych Common normals: mental status grossly normal Results Labs Labs: Short CBC 05/11/23 05/12/23 Range/Units 16:48 04:40 WBC 9.0 10.0 (4.0-11.0) 10^3/uL Hgb 9.1 L 8.7 L (12.0-16.0) g/dL Hct 25.8 L 25.4 L (36.0-48.0) % Plt Count 219 186 (150-450) 10^3/uL BMP 05/11/23 05/12/23 16:48 04:40 Sodium 125 L 126 L Potassium 2.6 L* 3.3 L Chloride 89 L 88 L Carbon Dioxide 24.7 23.7 BUN 68.0 H 77.0 H* Creatinine 2.53 H 2.86 H Glucose 115 H 123 H Calcium 5.7 L* 6.7 L Liver Function 05/11/23 05/12/23 Range/Units 16:48 04:40 Total Bilirubin 0.3 0.5 (0.2-1.0) mg/dL Direct Bilirubin 0.2 (0.0-0.2) mg/dL AST 26 27 (15-37) U/L ALT 23 25 (14-59) U/L Alkaline Phosphatase 86 92 (46-116) U/L Albumin 2.1 L 2.4 L (3.4-5.0) g/dL Urine 05/11/23 Range/Units 20:33 Urine Color Lt. yellow (YELLOW) Urine Clarity Clear (CLEAR) Urine pH 5.5 (5.0-9.0) Ur Specific [place] 1.015 (1.005-1.025) Urine Protein 30 A (NEG/TRACE) mg/dL Urine Glucose (UA) Negative (NEGATIVE) mg/dL Assessment and Plan Assessment and Plan (1) Acute hypokalemia: (2) Closed fracture of right hip: (3) Fall: (4) Chronic anemia: (5) Closed fracture of left condylar process of mandible: (6) Hemorrhoids: Plan Patient status post fall. This is likely secondary to dehydration with significant hyponatremia and hypokalemia. Started on IV fluids, potassium supplementation, serial labs. Increased transfer fall risk with positive UA-started on antibiotics today. Right femur fracture-will need orthopedic repair Left mandibular jaw. Discussed with oral surgeon, these do not always need to be repaired. Just need to make sure things are lined up correctly. Will work on patient to be transferred to [facility] in [facility],. Diet for now. Oxygen dependent COPD-she is fairly stable on her 3 L. Denies cough, fever or increased sputum production Atrial fibrillation-currently rate controlled will change patient from p.o. anticoagulation Hypertension by history-maintain current medications NIDDM-continue with medications and insulin sliding scale This issues as outlined above, acute patient inpatient status Urinary Catheter Management Urinary Catheter Management Urethral: Cath placed during this visit: yes Urethral indwelling: Yes Reason for continuing: surgical procedure Insertion date: 05/12/23 Insertion time: 04:29
[2023-05-12 10:54] LABS: Estimated Average Glucose 111 mg/dL; Glycohemoglobin A1C 5.5 % (4.5-6.2)
[2023-05-12 10:57] LABS: Chol HDL Ratio 2.1; Cholesterol 92 mg/dL (<=200); HDL Cholesterol 43 mg/dL (40-60); LDL Cholesterol Calculated 24.8 mg/dL; Triglycerides 121 mg/dL (<=150); VLDL CHOLESTEROL 24.2 mg/dL
[2023-05-12] MEDS: BUDESONIDE 0.5 MG/2 ML AMPULE NEB IH ×2 (11:57→20:13)
[2023-05-12] MEDS: CIPROFLOXACIN IN 5 % DEXTROSE 400 MG/200 ML PIGGYBACK 200 MG IV ×2 (12:21→23:07)
[2023-05-12] MEDS: HYDROMORPHONE HCL 0.5 MG/0.5 ML SYRINGE IV ×2 (14:33→23:10)
[2023-05-12 16:55] LABS: Anion Gap 14.1; BUN Creatinine Ratio 26.8; Calcium 6.3 mg/dL (8.5-10.1); Carbon Dioxide 24.4 mmol/L (21.0-32.0); Chloride 93 mmol/L (98-107); Estimated GFR (African America 23 (>=60); Estimated GFR (Non-African Ame 19 (>=60); Glucose 143 mg/dL (74-106); Potassium 3.5 mmol/L (3.5-5.1); Sodium 128 mmol/L (136-145)
[2023-05-12] MEDS: CEFTRIAXONE 1,000 MG in 0.9 % SODIUM CHLORIDE 50 ML 100 MG IV (17:54)
[2023-05-12] MEDS: HEPARIN SODIUM (PORCINE) 5,000 UNIT/ML VIAL 5000 UNIT SUBQ (19:56)
[2023-05-13] VITALS (20 sets, daily range): BP systolic 125–150; BP diastolic 70–88; PULSE 82–106; RESP 18; TEMP 36.6–36.8; O2SAT 98–100
[2023-05-13] MEDS: ALBUTEROL SULFATE 2.5 MG/3 ML VIAL NEB IH ×3 (05:06→16:52)
[2023-05-13 05:08] LABS: Alanine Aminotransferase 21 U/L (14-59); Albumin Globulin Ratio 0.5; Alkaline Phosphatase 74 U/L (46-116); Anion Gap 15.4; Aspartate Amino Transferase 20 U/L (15-37); BUN Creatinine Ratio 26.7; Basophils Percent Auto 0.1 % (0.2-2.0); Bilirubin Direct 0.1 mg/dL (0.0-0.2); Bilirubin Total 0.3 mg/dL (0.2-1.0); Calcium 6.6 mg/dL (8.5-10.1); Chloride 97 mmol/L (98-107); Eosinophils Percent Auto 0.1 % (0.9-7.0); Estimated GFR (African America 28 (>=60); Estimated GFR (Non-African Ame 23 (>=60); Globulin 4.2 g/dL; Glucose 131 mg/dL (74-106); Hemoglobin 7.9 g/dL (12.0-16.0); Immature Granulocytes Abs Auto 0.04 10^3/uL (0.00-0.03); Immature Granulocytes Pct Auto 0.4 % (0.0-0.5); Lymphocytes Absolute Auto 0.9 10^3/uL (1.2-3.8); Lymphocytes Percent Auto 9.9 % (20.5-60.0); Mean Corpuscular HGB Conc 33.2 g/dL (29.9-35.2); Mean Corpuscular Hemoglobin 30.4 pg (26.7-34.0); Mean Corpuscular Volume 91.5 fL (81.0-99.0); Mean Platelet Volume 9.2 fL (9.5-13.5); Monocytes Absolute Auto 0.4 10^3/uL (0.3-0.8); Monocytes Percent Auto 4.4 % (1.7-12.0); Neutrophils Absolute Auto 8.1 10^3/uL (1.4-6.5); Neutrophils Percent Auto 85.1 % (43.0-75.0); Platelet Count 157 10^3/uL (150-450); Potassium 3.4 mmol/L (3.5-5.1); Red Cell Distribution Width 13.2 % (11.0-15.0); Sodium 133 mmol/L (136-145); Total Protein 6.2 g/dL (6.4-8.2); White Blood Count 9.5 10^3/uL (4.0-11.0)
[2023-05-13] MEDS: CALCIUM CARBONATE 500 MG (200MG ELEMENTAL) TAB CHEW PO (05:10)
[2023-05-13 05:26] LABS: Hematocrit 23.8 % (36.0-48.0)
[2023-05-13] MEDS: ACETAMINOPHEN 500 MG TABLET 1000 MG PO (06:07)
--- NOTE | 2023-05-13 08:25 | P.PN_ITS ---
<Statement entered by Angel Luis Uriarte MD - 05/13/23 18:41> This documentation has been reviewed and approved. Agree with input and Dx provided by [employer] Hopeful for transfer rekha Progress Note: Subjective Subjective Interval history: 05/13/23 0825 The pt is awake and alert and resting in bed comfortably but poor tolerance to position changes 2/2 pain. Nursing reports poor pain control overnight. Pt c/o of R hip pain, primarily, but mild L jaw pain also noted. PO Percocet added today in hopes of improved pain management. Transfer to tertiary facility for trauma services is pending, hopefully later today. Her hgb is dropping (7.9 today) so we will transfuse 1 un PRBCs in preparation for planned orthopedic surgery. Repeat hgb after PRBC transfusion with low threshold to give further PRBCs pending result. IVF rate decreased to 100/hr to avoid fluid overload in pt w/ known HFpEF (LVEF 55%) on Bumex. ADDENDUM 1000: Nursing reports pt's LS are increasingly wet and she is coughing. Will order a CXR to assess for pulmonary edema. IVF rate decreased to 85 ml/hr. Consider resuming home bumex dosing. Pt is on clear liquids and may transition to NPO pending surgery - possibly later today if bed becomes available at [facility]. IVFs to maintain hydration are still indicated in this setting. Lasix has been ordered after PRBC transfusion. Exam Constitutional Vital Signs, click to edit/add: Last Vital Signs Temp 98.3 F 05/13/23 05:13 Pulse 106 H 05/13/23 08:00 Resp 18 05/13/23 05:13 BP 150/70 H 05/13/23 05:13 Pulse Ox 99 05/13/23 08:00 O2 Del Method Nasal Cannula 05/13/23 05:13 O2 Flow Rate 3 05/13/23 05:13 Common normals: no apparent distress, oriented x3 and alert General appearance: cooperative Orientation/consciousness: Yes awake HENMT Common normals: normocephalic, head/scalp atraumatic and hearing grossly normal bilaterally Eye Common normals: PERRL, EOMs intact bilaterally, conjunctivae normal and no scleral icterus General eye: normal appearance of both eyes Chest Common normals: inspection of chest normal Chest: symmetrical chest wall rise Respiratory Common normals: normal respiratory effort, no use of accessory muscles and clear to auscultation bilaterally Auscultation: rales (LLL - faint) and diminished lung sounds (BLL) Cardio Common normals: regular rhythm, S1 normal heart sound, S2 normal heart sound and peripheral pulses 2+ throughout Rate: tachycardic (Mild 100-105) Heart sounds: murmur (HSM 3/6, low pitched) GI Common normals: Normal to inspection, nondistended, normoactive bowel sounds present, soft to palpation, non-tender and no hepatosplenomegaly Bladder/kidney exam: bladder normal to palpation Extremity Common normals: normal to inspection and no calf tenderness General: no clubbing, no cyanosis and no edema Right lower extremity: hip joint (Painful. External rotation.) Neuro Common normals: CN's II-XII intact bilaterally, moves all extremities, no focal motor deficits and no sensory deficits noted Psych Common normals: mental status grossly normal Progress Note: Objective Labs Labs: Short CBC 05/13/23 Range/Units 04:16 WBC 9.5 (4.0-11.0) 10^3/uL Hgb 7.9 L (12.0-16.0) g/dL Hct 23.8 L* (36.0-48.0) % Plt Count 157 (150-450) 10^3/uL BMP 05/12/23 05/13/23 16:20 04:16 Sodium 128 L 133 L Potassium 3.5 3.4 L Chloride 93 L 97 L Carbon Dioxide 24.4 24.0 BUN 67.0 H 56.0 H Creatinine 2.50 H 2.10 H Glucose 143 H 131 H Calcium 6.3 L 6.6 L Liver Function 05/13/23 Range/Units 04:16 Total Bilirubin 0.3 (0.2-1.0) mg/dL Direct Bilirubin 0.1 (0.0-0.2) mg/dL AST 20 (15-37) U/L ALT 21 (14-59) U/L Alkaline Phosphatase 74 (46-116) U/L Albumin 2.0 L (3.4-5.0) g/dL Progress Note: A&P Assessment and Plan (1) Closed fracture of right hip: Assessment and Plan: ACUTE * 2/2 to mechanical fall at home * Pending tx to [facility] to Trauma service w/ surgical repair of hip fracture indicated in setting of concurrent mandibular fx (difficult intubation) * Possible tx later today if bed is available * Clear liquids for now and likely change to NPO by lunch time in preparation for possible OR later today * Home Eliquis on hold - not taken since at least 05/07/22 as pt ran out of medication prior to fall/admission * If transfer is still going to be delayed, will resume pureed diet before dinner * Start PRN Percocet for more long acting pain management * Continue IVP Dilauded PRN for breakthrough pain * Continue NS IVF at reduced rate of 100/hr to maintain hydration * Low threshold to reduce IVF rate further pending clinical course d/t known HFpEF on bumex at baseline * CBC, CMP daily (2) Closed fracture of left condylar process of mandible: Assessment and Plan: ACUTE * Attending physician, Dr Uriarte, discussed pt's care w/ oral surgeon on 05/12/23. * Surgical repair may not be indicated but will need to be further evaluated by oral surgery at a tertiary facility * Transfer to [facility] trauma service pending bed availability * Pureed diet for now if pt is not NPO (3) Fall: Assessment and Plan: ACUTE * Mechanical fall likely 2/2 weakness and electrolyte disturbances * PT consult * High fall risk (4) UTI (urinary tract infection): Assessment and Plan: ACUTE * Continue IVPB Rocephin & Cipro as initiated by the attending physician on admission * Deescalate to monotherapy per urine culture results when available * UA C&S pending (5) Hyponatremia: Assessment and Plan: ACUTE * Improving * Na 133 today, up from 125 on admission * Suspect 2/2 dehydration * Decrease IVF rate d/t concerns for CHF exacerbation * Change NS to 100/hr, but low threshold to decrease rate further pending clinical course * CMP daily (6) Acute hypokalemia: Assessment and Plan: ACUTE * Mild - 3.4 today. * Improved from 2.6 on admission * Start PO KCL 10 meq BID supplementation * CMP in AM (7) Anemia: Assessment and Plan: ACUTE ON CHRONIC * Acute (suspected blood loss from fx) on chronic anemia from CKD 3b/4 * Likely also reflects some hemodilution after IVF administration at 125/hr overnight * Hgb 7.9 today, down from 9.1 on admission (baseline) * Transfuse 1 un PRBCs now in preparation for surgery possibly later today * Repeat HH after transfusion for close monitoring * Consider further PRBC transfusions pending clinical course * Home Eliquis on hold * Continue low dose subQ heparin for DVT prophylaxis for now. Consider holding pending clinical course. * CBC daily Qualifiers: Anemia type: due to chronic kidney disease Chronic kidney disease stage: stage 3 (moderate) Chronic kidney disease stage 3 subtype: stage 3b (GFR 30-44) Qualified Code(s): N18.32 - Chronic kidney disease, stage 3b; D63.1 - Anemia in chronic kidney disease (8) (HFpEF) heart failure with preserved ejection fraction: Assessment and Plan: CHRONIC * Home Bumex & metolazone on hold since admission d/t concern for d ehydration/hyponatremia * Reduce IVF rate today d/t concern for CHF exacerbation risk * Consider resuming home bumex pending clinical course * Daily weights, strict I&O * Last Echo October 2022 - LVEF 55%, indeterminate diastolic fx d/t a-fib, severe LA dilatation, mild tricuspid regurg, severely elevated R side pressures (9) Atrial fibrillation: Assessment and Plan: CHRONIC * Continue home metoprolol for rate control * HR adequately controlled * Home eliquis for CVA prevention currently on hold pending orthopedic surgery * Continue holding pending OR and in setting of acute on chronic anemia * Resume anticoagulation when clinically indicated (10) Diabetes: Assessment and Plan: CHRONIC * Hold home Farxiga and Trulicity during acute hospitalization * At risk for euglycemic DKA * ACHS glucometer checks * Med dose SSI for glucose correction * Plan to resume Med CC diet after surgery Qualifiers: Chronic kidney disease stage: stage 3 (moderate) Chronic kidney disease stage 3 subtype: stage 3a (GFR 45-59) Diabetes mellitus complication detail: with chronic kidney disease Diabetes mellitus complication status: with kidney complications Diabetes mellitus detention insulin use: with director long term care use Diabetes mellitus type: type 2 Qualified Code(s): E11.22 - Type 2 diabetes mellitus with diabetic chronic kidney disease; N18.31 - Chronic kidney disease, stage 3a; Z79.4 - FDC (current) use of insulin (11) Hypocalcemia: Assessment and Plan: CHRONIC * Likely 2/2 chronic CKD 3b/4 * Corrected Calcium 8.2 - still mildly low * Continue home TID calcium carbonate dosing in setting of orthopedic fx and high calcium demand for healing * Add Vitamin D3 dosing and check Vitamin D level - consider higher dosing pending result * CMP in AM (12) COPD (chronic obstructive pulmonary disease): Assessment and Plan: CHRONIC * Continue home Advair (or hospital formulary substitution) * PRN Albuterol * Continue home O2 delivery at 3L - stable O2 sats on home O2 (13) Hypertension: Assessment and Plan: CHRONIC * Continue home lisinopril and metoprolol (14) Depression: Assessment and Plan: CHRONIC * Continue home Rexulti, fluoxetine, and PRN Alprazolam (15) Generalized seizure: Assessment and Plan: CHRONIC * Continue home Keppra (16) CKD (chronic kidney disease) stage 4, GFR 15-29 ml/min: Assessment and Plan: CHRONIC * ELI on admission * Near baseline CKD 3b/4 today but still not completely resolved * IVF as above - reduced rate to avoid chf exacerbation * Holding home diuretics * CMP daily (17) 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 * Hx of recent C-diff colitis withn 2 months * Start prophylactic PO Vanco as pt is on antibiotics for a UTI and is high risk for recurrent c-diff * Plan to d/c double gram neg cov and deescalate to single agent once urine cultures result Urinary Catheter Management Urinary Catheter Management Urethral: Cath placed during this visit: yes Urethral indwelling: Yes Reason for continuing: prolonged immobilization Insertion date: 05/12/23 Insertion time: 04:29
--- NOTE | 2023-05-13 08:25 | PM.PN ---
Progress Note: Subjective Subjective Interval history: 05/13/23 0825 The pt is awake and alert and resting in bed comfortably but poor tolerance to position changes 2/2 pain. Nursing reports poor pain control overnight. Pt c/o of R hip pain, primarily, but mild L jaw pain also noted. PO Percocet added today in hopes of improved pain management. Transfer to tertiary facility for trauma services is pending, hopefully later today. Her hgb is dropping (7.9 today) so we will transfuse 1 un PRBCs in preparation for planned orthopedic surgery. Repeat hgb after PRBC transfusion with low threshold to give further PRBCs pending result. IVF rate decreased to 100/hr to avoid fluid overload in pt w/ known HFpEF (LVEF 55%) on Bumex. ADDENDUM 1000: Nursing reports pt's LS are increasingly wet and she is coughing. Will order a CXR to assess for pulmonary edema. IVF rate decreased to 85 ml/hr. Consider resuming home bumex dosing. Pt is on clear liquids and may transition to NPO pending surgery - possibly later today if bed becomes available at [facility]. IVFs to maintain hydration are still indicated in this setting. Lasix has been ordered after PRBC transfusion. Exam Constitutional Vital Signs, click to edit/add: Last Vital Signs Temp 98.3 F 05/13/23 05:13 Pulse 106 H 05/13/23 08:00 Resp 18 05/13/23 05:13 BP 150/70 H 05/13/23 05:13 Pulse Ox 99 05/13/23 08:00 O2 Del Method Nasal Cannula 05/13/23 05:13 O2 Flow Rate 3 05/13/23 05:13 Common normals: no apparent distress, oriented x3 and alert General appearance: cooperative Orientation/consciousness: Yes awake HENOR Common normals: normocephalic, head/scalp atraumatic and hearing grossly normal bilaterally Eye Common normals: PERRL, EOMs intact bilaterally, conjunctivae normal and no scleral icterus General eye: normal appearance of both eyes Chest Common normals: inspection of chest normal Chest: symmetrical chest wall rise Respiratory Common normals: normal respiratory effort, no use of accessory muscles and clear to auscultation bilaterally Auscultation: rales (LLL - faint) and diminished lung sounds (BLL) Cardio Common normals: regular rhythm, S1 normal heart sound, S2 normal heart sound and peripheral pulses 2+ throughout Rate: tachycardic (Mild 100-105) Heart sounds: murmur (HSM 3/6, low pitched) GI Common normals: Normal to inspection, nondistended, normoactive bowel sounds present, soft to palpation, non-tender and no hepatosplenomegaly Bladder/kidney exam: bladder normal to palpation Extremity Common normals: normal to inspection and no calf tenderness General: no clubbing, no cyanosis and no edema Right lower extremity: hip joint (Painful. External rotation.) Neuro Common normals: CN's II-XII intact bilaterally, moves all extremities, no focal motor deficits and no sensory deficits noted Psych Common normals: mental status grossly normal Progress Note: Objective Labs Labs: Short CBC 05/13/23 Range/Units 04:16 WBC 9.5 (4.0-11.0) 10^3/uL Hgb 7.9 L (12.0-16.0) g/dL Hct 23.8 L* (36.0-48.0) % Plt Count 157 (150-450) 10^3/uL BMP 05/12/23 05/13/23 16:20 04:16 Sodium 128 L 133 L Potassium 3.5 3.4 L Chloride 93 L 97 L Carbon Dioxide 24.4 24.0 BUN 67.0 H 56.0 H Creatinine 2.50 H 2.10 H Glucose 143 H 131 H Calcium 6.3 L 6.6 L Liver Function 05/13/23 Range/Units 04:16 Total Bilirubin 0.3 (0.2-1.0) mg/dL Direct Bilirubin 0.1 (0.0-0.2) mg/dL AST 20 (15-37) U/L ALT 21 (14-59) U/L Alkaline Phosphatase 74 (46-116) U/L Albumin 2.0 L (3.4-5.0) g/dL Progress Note: A&P Assessment and Plan (1) Closed fracture of right hip: Assessment and Plan: ACUTE 2/2 to mechanical fall at home Pending tx to [facility] to Trauma service w/ surgical repair of hip fracture indicated in setting of concurrent mandibular fx (difficult intubation) Possible tx later today if bed is available Clear liquids for now and likely change to NPO by lunch time in preparation for possible OR later today Home Eliquis on hold - not taken since at least 05/07/22 as pt ran out of medication prior to fall/admission If transfer is still going to be delayed, will resume pureed diet before dinner Start PRN Percocet for more long acting pain management Continue IVP Dilauded PRN for breakthrough pain Continue NS IVF at reduced rate of 100/hr to maintain hydration Low threshold to reduce IVF rate further pending clinical course d/t known HFpEF on bumex at baseline CBC, CMP daily (2) Closed fracture of left condylar process of mandible: Assessment and Plan: ACUTE Attending physician, Dr Uriarte, discussed pt's care w/ oral surgeon on 05/12/23. Surgical repair may not be indicated but will need to be further evaluated by oral surgery at a tertiary facility Transfer to [facility] trauma service pending bed availability Pureed diet for now if pt is not NPO (3) Fall: Assessment and Plan: ACUTE Mechanical fall likely 2/2 weakness and electrolyte disturbances PT consult High fall risk (4) UTI (urinary tract infection): Assessment and Plan: ACUTE Continue IVPB Rocephin & Cipro as initiated by the attending physician on admission Deescalate to monotherapy per urine culture results when available UA C&S pending (5) Hyponatremia: Assessment and Plan: ACUTE Improving Na 133 today, up from 125 on admission Suspect 2/2 dehydration Decrease IVF rate d/t concerns for CHF exacerbation Change NS to 100/hr, but low threshold to decrease rate further pending clinical course CMP daily (6) Acute hypokalemia: Assessment and Plan: ACUTE Mild - 3.4 today. Improved from 2.6 on admission Start PO KCL 10 meq BID supplementation CMP in AM (7) Anemia: Assessment and Plan: ACUTE ON CHRONIC Acute (suspected blood loss from fx) on chronic anemia from CKD 3b/4 Likely also reflects some hemodilution after IVF administration at 125/hr overnight Hgb 7.9 today, down from 9.1 on admission (baseline) Transfuse 1 un PRBCs now in preparation for surgery possibly later today Repeat HH after transfusion for close monitoring Consider further PRBC transfusions pending clinical course Home Eliquis on hold Continue low dose subQ heparin for DVT prophylaxis for now. Consider holding pending clinical course. CBC daily Qualifiers: Anemia type: due to chronic kidney disease Chronic kidney disease stage: stage 3 (moderate) Chronic kidney disease stage 3 subtype: stage 3b (GFR 30-44) Qualified Code(s): N18.32 - Chronic kidney disease, stage 3b; D63.1 - Anemia in chronic kidney disease (8) (HFpEF) heart failure with preserved ejection fraction: Assessment and Plan: CHRONIC Home Bumex & metolazone on hold since admission d/t concern for dehydration/hyponatremia Reduce IVF rate today d/t concern for CHF exacerbation risk Consider resuming home bumex pending clinical course Daily weights, strict I&O Last Echo October 2022 - LVEF 55%, indeterminate diastolic fx d/t a-fib, severe LA dilatation, mild tricuspid regurg, severely elevated R side pressures (9) Atrial fibrillation: Assessment and Plan: CHRONIC Continue home metoprolol for rate control HR adequately controlled Home eliquis for CVA prevention currently on hold pending orthopedic surgery Continue holding pending OR and in setting of acute on chronic anemia Resume anticoagulation when clinically indicated (10) Diabetes: Assessment and Plan: CHRONIC Hold home Farxiga and Trulicity during acute hospitalization At risk for euglycemic DKA ACHS glucometer checks Med dose SSI for glucose correction Plan to resume Med CC diet after surgery Qualifiers: Chronic kidney disease stage: stage 3 (moderate) Chronic kidney disease stage 3 subtype: stage 3a (GFR 45-59) Diabetes mellitus complication detail: with chronic kidney disease Diabetes mellitus complication status: with kidney complications Diabetes mellitus terminal computer operator insulin use: with terminal computer operator use Diabetes mellitus type: type 2 Qualified Code(s): E11.22 - Type 2 diabetes mellitus with diabetic chronic kidney disease; N18.31 - Chronic kidney disease, stage 3a; Z79.4 - skilled nursing (current) use of insulin (11) Hypocalcemia: Assessment and Plan: CHRONIC Likely 2/2 chronic CKD 3b/4 Corrected Calcium 8.2 - still mildly low Continue home TID calcium carbonate dosing in setting of orthopedic fx and high calcium demand for healing Add Vitamin D3 dosing and check Vitamin D level - consider higher dosing pending result CMP in AM (12) COPD (chronic obstructive pulmonary disease): Assessment and Plan: CHRONIC Continue home Advair (or hospital formulary substitution) PRN Albuterol Continue home O2 delivery at 3L - stable O2 sats on home O2 (13) Hypertension: Assessment and Plan: CHRONIC Continue home lisinopril and metoprolol (14) Depression: Assessment and Plan: CHRONIC Continue home Rexulti, fluoxetine, and PRN Alprazolam (15) Generalized seizure: Assessment and Plan: CHRONIC Continue home Keppra (16) CKD (chronic kidney disease) stage 4, GFR 15-29 ml/min: Assessment and Plan: CHRONIC ELI on admission Near baseline CKD 3b/4 today but still not completely resolved IVF as above - reduced rate to avoid chf exacerbation Holding home diuretics CMP daily (17) 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
[2023-05-13] MEDS: MAGNESIUM OXIDE 400 MG TABLET PO (09:08)
[2023-05-13] MEDS: OXYCODONE HCL/ACETAMINOPHEN 5MG/325MG 1 TAB PO (09:08)
[2023-05-13] MEDS: ATORVASTATIN CALCIUM 20 MG TABLET PO (09:09)
[2023-05-13] MEDS: LISINOPRIL 20 MG TABLET PO (09:10)
[2023-05-13] MEDS: OMEPRAZOLE 40 MG CAPSULE.DR PO (09:10)
[2023-05-13] MEDS: LEVETIRACETAM 250 MG TABLET PO (09:10)
[2023-05-13] MEDS: METOPROLOL TARTRATE 50 MG TABLET PO (09:10)
[2023-05-13] MEDS: FLUOXETINE HCL 20 MG CAPSULE 40 MG PO (09:10)
[2023-05-13] MEDS: 0.9 % SODIUM CHLORIDE 1,000 ML 100 ML IV (09:11)
[2023-05-13] MEDS: HEPARIN SODIUM (PORCINE) 5,000 UNIT/ML VIAL 5000 UNIT SUBQ (09:11)
--- NOTE | 2023-05-13 09:44 | CM.NOTE ---
Rounds made with Dr. Uriarte, awaiting bed at [facility] for transfer.
--- NOTE | 2023-05-13 09:55 | XR_ITS ---
The [address] [address] Patient Name: MARTIN HAGEN MRN: [id number] date: 1950 Sex: F Assigned Patient Location: [place] Current Patient Location: [place] Accession/Order Number: [id number] Exam Date: 05/13/2023 10:20 Report Date: 05/13/2023 10:56 At the request of: DANIEL AGEE Procedure: XR chest 1V EXAM: XR chest 1V HISTORY: cough, sob COMPARISON: 05/11/2023 TECHNIQUE: AP portable erect FINDINGS: LUNGS: No significant pulmonary parenchymal abnormalities. VASCULATURE: Pulmonary vascular congestion PLEURA: No pneumothorax, effusion, or pleural thickening. CARDIAC: No cardiomegaly or cardiac silhouette abnormality. MEDIASTINUM: No visible mass or adenopathy. BONES: No fracture or visible bone lesion. OTHER: Negative. XR/XR chest 1V IMPRESSION: Pulmonary vascular congestion Clear lungs Electronically authenticated by: LYN LEBRON Date: 05/13/2023 10:56
[2023-05-13] MEDS: CHOLECALCIFEROL (VITAMIN D3) 125 MCG/5000 UNIT TABLET PO (11:27)
[2023-05-13] MEDS: POTASSIUM CHLORIDE 10 MEQ ER TABLET PO (11:28)
[2023-05-13] MEDS: BUDESONIDE 0.5 MG/2 ML AMPULE NEB IH (11:49)
--- NOTE | 2023-05-13 11:59 | SWNOTE1 ---
Discharge plan is for pt to be transferred.
--- NOTE | 2023-05-13 13:32 | PC.NURSE ---
Pt voiced to nurse that her whole right leg feels like its asleep (pins and needles.) pt can feel the nurse touching her foot and had good pedal pulse in RLE. Checked bed status and updated on pt condition, no beds at this time.
[2023-05-13] MEDS: CIPROFLOXACIN IN 5 % DEXTROSE 400 MG/200 ML PIGGYBACK 200 MG IV (14:20)
[2023-05-13] MEDS: FUROSEMIDE 20 MG/2 ML VIAL IVP (15:07)
[2023-05-13] MEDS: OXYCODONE HCL/ACETAMINOPHEN 5MG/325MG 2 TAB PO (15:10)
[2023-05-13] MEDS: PIPERACILLIN SODIUM/TAZOBACTAM 3.375 GM in 0.9 % SODIUM CHLORIDE 50 ML IV (17:48)
[2023-05-13 18:05] LABS: Adenovirus F 40/41 NOT DETECTED (NOT DETECTE); Astrovirus NOT DETECTED (NOT DETECTE); Campylobacter NOT DETECTED (NOT DETECTE); Cryptosporidium NOT DETECTED (NOT DETECTE); Cyclospora cayetanensis NOT DETECTED (NOT DETECTE); Entamoeba histolytica NOT DETECTED (NOT DETECTE); Enteroaggregative E.coli NOT DETECTED (NOT DETECTE); Enteropathogenic E.coli NOT DETECTED (NOT DETECTE); Enterotoxigenic E. coli NOT DETECTED (NOT DETECTE); Giardia lamblia NOT DETECTED (NOT DETECTE); Norovirus GI/GII NOT DETECTED (NOT DETECTE); Plesiomonas shigelloides NOT DETECTED (NOT DETECTE); Rotavirus A NOT DETECTED (NOT DETECTE); Salmonella NOT DETECTED (NOT DETECTE); Sapovirus NOT DETECTED (NOT DETECTE); Shiga-like toxin-producing E.C NOT DETECTED (NOT DETECTE); Shigella/Enteroinvasive E.coli NOT DETECTED (NOT DETECTE); Vibrio NOT DETECTED (NOT DETECTE); Vibrio cholerae NOT DETECTED (NOT DETECTE); Yersinia enterocolitica NOT DETECTED (NOT DETECTE)
--- NOTE | 2023-05-13 18:46 | P.DS_ITS ---
DS: Providers Provider Date of admission: 05/11/23 18:33 Primary care physician: BARRY RENDON Consults: 05/11/23 17:54 Consult to Anesthesiology Routine Consulting Provider: Angel Luis Uriarte Reason for consultation: Any more tests for clearance Has provider been notified: No Consult to Orthopedic Surgery Routine Consulting Provider: Mata Dodson Reason For Exam: Reason for consultation: hip fx Has provider been notified: Yes Occupational Therapy Eval and Treat Routine Reason for consultation: Only if needed for Rehab Has provider been notified: No Physical Therapy Eval and Treat Routine Reason for consultation: Eval and Treat Has provider been notified: No DS: Diagnosis Discharge Diagnosis (1) Closed fracture of right hip: (2) Closed fracture of left condylar process of mandible: (3) Fall: (4) UTI (urinary tract infection): (5) Hyponatremia: (6) Acute hypokalemia: (7) Anemia: Qualifiers: Anemia type: due to chronic kidney disease Chronic kidney disease stage: stage 3 (moderate) Chronic kidney disease stage 3 subtype: stage 3b (GFR 30-44) Qualified Code(s): N18.32 - Chronic kidney disease, stage 3b; D63.1 - Anemia in chronic kidney disease (8) (HFpEF) heart failure with preserved ejection fraction: (9) Atrial fibrillation: (10) Diabetes: Qualifiers: Diabetes mellitus type: type 2 Diabetes mellitus detention insulin use: with detention use Diabetes mellitus complication status: with kidney complications Diabetes mellitus complication detail: with chronic kidney disease Chronic kidney disease stage: stage 3 (moderate) Chronic kidney disease stage 3 subtype: stage 3a (GFR 45-59) Qualified Code(s): E11.22 - Type 2 diabetes mellitus with diabetic chronic kidney disease; N18.31 - Chronic kidney disease, stage 3a; Z79.4 - FPC (current) use of insulin (11) Hypocalcemia: (12) COPD (chronic obstructive pulmonary disease): (13) Hypertension: (14) Depression: (15) Generalized seizure: (16) CKD (chronic kidney disease) stage 4, GFR 15-29 ml/min: (17) C. difficile diarrhea: DS: Summary Hospital Course Hospital Course: Patient was seen and evaluated in the emergency room status post fall, found to have hip fracture. Right-sided. Case was discussed with orthopedics who agreed to accept patient for likely surgery the following day. Case was discussed with me, patient found to have some dehydration she has some chronic COPD and was admitted for workup to get tuned up for surgery. Following morning discovered patient had a left mandibular fracture. Case was discussed with multiple hospitals looking for someone to treat or evaluate the mandibular fracture. Fortunately [facility] had a oral surgeon though became involved evaluating the fracture for risk for surgical procedures. Need for surgical procedures. Since admission patient has been given IV fluids. Her sodium is improved almost to baseline she is at 133 currently. She did have some significant anemia, she has a chronic anemia as well as probably some acute blood loss anemia secondary to the hip fracture. She was given 1 unit of blood today. Urine culture does show 3 different organisms although only 1 is listed as significant at over 100,000. She is been on antibiotics since admission. Sensitivities will not be back until tomorrow. Patient was accepted for transfer. Urine culture results will be relayed to [facility]. Patient cleared for transfer to [facility]. Time Spent with Patient Time attestation: Total time spent providing and/or coordinating discharge services: Exam Constitutional Vital Signs, click to edit/add: Last Vital Signs Temp 98.2 F 05/13/23 13:23 Pulse 93 H 05/13/23 17:33 Resp 18 05/13/23 14:50 BP 147/82 H 05/13/23 14:50 Pulse Ox 99 05/13/23 16:53 O2 Del Method Nasal Cannula 05/13/23 14:50 O2 Flow Rate 3 05/13/23 16:53 Common normals: no apparent distress, oriented x3 and alert General appearance: cooperative Orientation/consciousness: Yes awake [facility] Common normals: normocephalic, head/scalp atraumatic and hearing grossly normal bilaterally Eye Common normals: PERRL, EOMs intact bilaterally, conjunctivae normal and no scleral icterus General eye: normal appearance of both eyes Chest Common normals: inspection of chest normal Chest: symmetrical chest wall rise Respiratory Common normals: normal respiratory effort, no use of accessory muscles and clear to auscultation bilaterally Auscultation: rales (LLL - faint) and diminished lung sounds (BLL) Cardio Common normals: regular rhythm, S1 normal heart sound, S2 normal heart sound and peripheral pulses 2+ throughout Rate: tachycardic (Mild 100-105) Heart sounds: murmur (HSM 3/6, low pitched) GI Common normals: Normal to inspection, nondistended, normoactive bowel sounds present, soft to palpation, non-tender and no hepatosplenomegaly Bladder/kidney exam: bladder normal to palpation Extremity Common normals: normal to inspection and no calf tenderness General: no clubbing, no cyanosis and no edema Right lower extremity: hip joint (Painful. External rotation.) Neuro Common normals: CN's II-XII intact bilaterally, moves all extremities, no focal motor deficits and no sensory deficits noted Psych Common normals: mental status grossly normal DS: Data Data Completed and Pending Labs on day of discharge: Labs from last 24 hours 05/13/23 05/13/23 05/13/23 14:13 09:10 04:16 WBC 9.5 RBC 2.60 L Hgb 9.0 L 7.9 L Hct 23.8 L* MCV 91.5 MCH 30.4 MCHC 33.2 RDW 13.2 Plt Count 157 MPV 9.2 L Neut % (Auto) 85.1 H Lymph % (Auto) 9.9 L Treasure % (Auto) 4.4 Eos % (Auto) 0.1 L Baso % (Auto) 0.1 L Neut # (Auto) 8.1 H Lymph # (Auto) 0.9 L Treasure # (Auto) 0.4 Eos # (Auto) 0.0 Baso # (Auto) 0.0 Abs Immat Gran (auto) 0.04 H Imm/Tot Granulo (auto) 0.4 Sodium 133 L Potassium 3.4 L Chloride 97 L Carbon Dioxide 24.0 Anion Gap 15.4 BUN 56.0 H Creatinine 2.10 H Est GFR ( Amer) 28 L Est GFR (Non-Af Amer) 23 L BUN/Creatinine Ratio 26.7 Glucose 131 H Calcium 6.6 L Total Bilirubin 0.3 Direct Bilirubin 0.1 AST 20 ALT 21 Alkaline Phosphatase 74 Total Protein 6.2 L Albumin 2.0 L Globulin 4.2 Albumin/Globulin Ratio 0.5 Vitamin D Level 50.6 Blood Type O Positive Antibody Screen Negative Crossmatch See Detail Preliminary micro results at discharge 05/11/23 20:33 Urine Culture - Preliminary Urine,Clean Catch Enterococcus faecalis Escherichia coli Klebsiella pneumoniae Discharge Plan Discharge Disposition: Xfer Acute Care Hospital Condition: Fair
[2023-05-13 19:02] LABS: Occult Blood Negative
--- NOTE | 2023-05-13 19:06 | PC.NURSE ---
Pt received a bed [address] [facility] [address]. [facility], 5 east room 707 bed 1. Number for report is [phone]
[2023-05-13] MEDS: HYDROMORPHONE HCL 0.5 MG/0.5 ML SYRINGE IV (19:07)
--- NOTE | 2023-05-13 20:05 | PC.NURSE ---
RN called report to [facility] at 1999 and spoke with BENITO Nguyen. Pt left with [facility] transportation at 1945.
== END 2023-05-13 19:45 | disposition short-term general hospital (02) | DRG 536 ==
LOC: ER 20:11 → MS 20:17 → FBC 05-13 17:22 → MS 05-13 17:24
PROVIDERS: Physician Assistant; Admitting Provider Family Medicine; Emergency Provider Emergency Medicine; PCP Internal Medicine; Visit Provider Nurse Practitioner
DX: S72.141A Displaced intertrochanteric fracture of right femur, initial encounter for closed fracture (principal); S02.612A Fracture of condylar process of left mandible, initial encounter for closed fracture; M48.54XA Collapsed vertebra, not elsewhere classified, thoracic region, initial encounter for fracture; I13.0 Hypertensive heart and chronic kidney disease with heart failure and stage 1 through stage 4 chronic kidney disease, or unspecified chronic kidney disease; I50.30 Unspecified diastolic (congestive) heart failure; N18.4 Chronic kidney disease, stage 4 (severe); N17.9 Acute kidney failure, unspecified; N39.0 Urinary tract infection, site not specified; A04.72 Enterocolitis due to Clostridium difficile, not specified as recurrent; E87.1 Hypo-osmolality and hyponatremia; I48.20 Chronic atrial fibrillation, unspecified; D62 Acute posthemorrhagic anemia; D63.1 Anemia in chronic kidney disease; E87.6 Hypokalemia; E83.51 Hypocalcemia; E11.22 Type 2 diabetes mellitus with diabetic chronic kidney disease; E86.0 Dehydration; F32.A Depression, unspecified; F17.200 Nicotine dependence, unspecified, uncomplicated; J44.9 Chronic obstructive pulmonary disease, unspecified; R56.9 Unspecified convulsions; R29.6 Repeated falls; W19.XXXA Unspecified fall, initial encounter; Y92.009 Unspecified place in unspecified non-institutional (private) residence as the place of occurrence of the external cause; Z79.4 Long term (current) use of insulin; Z79.01 Long term (current) use of anticoagulants; Z79.899 Other long term (current) drug therapy; Z99.81 Dependence on supplemental oxygen; Z90.710 Acquired absence of both cervix and uterus; Z90.49 Acquired absence of other specified parts of digestive tract; Z87.440 Personal history of urinary (tract) infections; Z91.81 History of falling; Z82.5 Family history of asthma and other chronic lower respiratory diseases; Z82.49 Family history of ischemic heart disease and other diseases of the circulatory system
CPT/HCPCS: 36415; 36430; 51702; 70450; 70486; 71045; 72125; 73502; 73552; 80048; 80053; 80061; 80076; 81001; 82306; 83036; 84484; 85018; 85025; 85610; 86850; 86900; 86901; 87070; 87086; 87150; 87186; 87493; 87507; 93005; 94640; 94667; 94668; 94761; 96365; 96366; 96367; 96368; 96372; 96375; 96376; 97165; 97535; 99285; G0328; J0696; J0744; J1170; J1940; J2405; J2543; J3010; J3480; P9016

== ENCOUNTER 2023-10-25 20:20 | Inpatient (IN) | payer MEDICARE, MEDICAID, SELFPAY ==
[2023-10-25] VITALS (9 sets, daily range): BP systolic 110–163; BP diastolic 70–90; PULSE 67–77; TEMP 36.4–37.1; O2SAT 91–97; BMI 26.6; BMI 27.9
--- OUTSIDE RECORDS SUMMARY | 2023-10-25 20:27 | XMS_ITS ---
Patient Summarization (C-CDA 2.1 CCD) Created on: October 25, 2023 KATE HAGEN : 1950 Sex: Female Author Organization Sample organization Care Team Providers Care Mobile Game Engineer Name Role Phone BROWN KASANDRA Unavailable Unavailable KASANDRA BROWN Unavailable Unavailable SELF, REFERRED Unavailable Unavailable SHAWN BARBER Unavailable Unavailable Smiley Davila Unavailable SHAWN BARBER Primary Care Physician [phone] Ziggy Dean Unavailable JAG, DR MAHAMED Perez Admitting Unavailable JAG, DR MAHAMED Perez Attending Unavailable DR SHAWN BARBER Primary Care Unavailable DR SHAWN BARBER Primary Care Unavailable MIGUEL ., DR ESCALERA Admitting Unavailable MIGUEL ., DR ESCALERA Attending Unavailable MIGUEL ., DR ESCALERA Consulting Unavailable LYN PIPER Consulting Unavailable ADILENE ., FLAKITA Consulting Unavailable SIMON NORIEGA Consulting Unavailable RANGELNALLELY VILCHIS Consulting Unavailable DR SHAWN BARBER Primary Care Unavailable ZIGGY DEAN Attending Unavailable ZIGGY DEAN Admitting Unavailable MIGUEL ., DR ESCALERA Procedure Practitioner Unavail able HONadir ., DR ESCALERA Consulting Unavailable HOaNdir ., DR ESCALERA Attending Unavailable MIGUEL ., DR ESCALERA Admitting Unavailable DR SHAWN BARBER Primary Care Unavailable LYN THOMASON Consulting Unavailable RON TADEO Consulting Unavailable SUNIL, DR REDDY Primary Care Unavailable ADELAIDA ., DR JOSE Berumen Admitting Unavailable SON ., DR JOSE Berumen Attending Unavailable TAHMINA, [...] DR SHAWN BARBER Primary Care Unavailable JOHN REENE Consulting Unavailable INES WELCH Consulting Unavailable SUNIL, DR REDDY Primary Care Unavailable DANN, INES Attending Unavailable DANN, INES Admitting Unavailable ZIEBER, DR ANITA Ambrose Consulting Unavailable TAHMINA SHABAZZ ., DR PAULINO Faustin Attending Unavaila ble TAHMINA SHABAZZ ., DR PAULINO Faustin Admitting Unavaila ble BARBER, DR REDDY Primary Care Unavailable KABA JR ., DR PAULINO Faustin Consulting Unavaila ble DANN, INES Consulting Unavailable HENRY, MADI Consulting Unavailable BARBER, DR REDDY Primary Care Unavailable HENRYMADI NOVAK Attending Unavailable HENRY, MADI Admitting Unavailable DANN, [...] Unavailable HOY ., DR ESCALERA Consulting Unavailable SUNIL, DR REDDY Primary Care Unavailable SON ., DR JOSE Berumen Consulting Unavailable MARYLOU SLATER Consulting Unavailable Mitra Briggs Consulting Unavailable LOJA, AFTAB Consulting Unavailable BARBER, [...] Unavailable SUNIL, DR REDDY Primary Care Unavailable ELTAHAWY, DR ASCENCIO Attending Unavailable ELTAHAWY, DR ASCENCIO Admitting Unavailable SON ., DR JOSE Berumen Admitting Unavailable SON ., DR JOSE Berumen Attending Unavailable BARBER, DR REDDY Primary Care Unavailable SON ., DR JOSE Berumen Consulting Unavailable ELTAHAWY, SILVA Attending Unavailable ELTAHAWY, SILVA Attending Unavailable HENRY, MADI Attending Unavailable CALVINPHILL Attending Unavailable Barber, II Shawn Primary Care Provider DO Venkatesh Trammell Emergency Provider DO Gina Poole Admit Provider DO Gina Poole Attending Provider BENITO Antunez Other Provider Unavailable DO Daniel Canela Other Provider MD Colin Carrillo Other Provider MD Rey Arriaga Other Provider MD Jeffry Hardy Other Provider MD Farhat Saleem Other Provider JERMAINE Montanez Other Provider MD Kellie Okeefe Other Provider MD Jack Cooley Other Provider MD Daniella Estrada Other Provider PATRICIA UrenaBETTYE Faustin Other Provider [phone] MD Tatiana Shafer Other Provider [phone] Hilary Antunez Consulting Unavailable Gina Poole Admitting Unavailable Gina Poole Attending Unavailable Shawn Barber Primary Care Unavailable Daniel Canela Consulting Unavailable Colin Carrillo Consulting Unavailable [...] Primary Care Provider Shawn Barber MD Unavailable Shawn Barber MD Primary Care Provider Shawn Barber MD Unavailable SOM MADRIGAL Referring Unavailable SHAWN BARBER Primary Care Unavailable SOM MADRIGAL Attending Unavailable LALI RIVERA Referring Unavailable SHAWN BARBER Primary Care Unavailable Unavailable Primary Care Provider Unavailabl e Shawn Barber MD Unavailable Shawn Barber MD Primary Care Provider [phone] Wednesday ASSOCIATE DIRECTOR CAREER SERVICES, Randee Unavailable [facility], Becca Unavailable ANNIKA MONTANEZ Referring Unavailable SHAWN BARBER Primary Care Unavailable Colt Live DO Unavailable Viky Madera Unavailable Unavailable Giovanni BACON MD, Meng Unavailable Jacqui Michael Attending Unavailable Jacqui Michael Referring Unavailable Jacqui Michael Admitting Unavailable Jacqui Michael Attending Unavailable Jacqui Michael Admitting Unavailable Lani Wasserman Attending Unavailable Jacqui Michael Attending Unavailable Jacqui Michael Referring Unavailable Jacqui Michael Attending Unavailable Shaye Pittman Attending Unavailable Jacqui Michael Attending Unavailable INES WELCH Attending Unavailable KAYDEN LEE Referring Unavailable PROVIDER, UNKNOWN Admitting Unavailable PROVIDER, UNKNOWN Attending Unavailable KAYDEN LEE Referring Unavailable PROVIDER, UNKNOWN Admitting Unavailable PROVIDER, UNKNOWN Attending Unavailable KAYDEN LEE Referring Unavailable PROVIDER, UNKNOWN Attending Unavailable PROVIDER, UNKNOWN Admitting Unavailable PROVIDER, UNKNOWN Attending Unavailable LALI RIVERA Referring Unavailable REY CARBAJAL Admitting Unavailable LALI RIVERA Referring Unavailable REY CARBAJAL Admitting Unavailable PROVIDER, UNKNOWN Attending Unavailable LALI RIVERA Referring Unavailable REQUEST, IP PHYSICAL THERAPY SERVICE Consulting Unavailable REY CARBAJAL Attending Unavailable REY CARBAJAL Admitting Unavailable REQUEST, IP OCCUPATIONAL THERAPY SERVICE Consult ing Unavailable CONSULT, IP ORTHOPAEDICS GENERAL Consulting Unavailable CONSULT, IP SURGERY OMFS Consulting Unavail able CONSULT, IP GERIATRIC Consulting Unavailabl e REQUEST, IP ARTIFACTS CONSERVATOR SERVICE Consulting Unavaila ble PROVIDER, UNKNOWN Admitting Unavailable COLT LIVE Attending Unavailable PROVIDER, UNKNOWN Admitting Unavailable MENG LEOS Attending Unavailable PROVIDER, UNKNOWN Admitting Unavailable COLT LIVE Attending Unavailable PROVIDER, UNKNOWN Admitting Unavailable PROVIDER, UNKNOWN Attending Unavailable PROVIDER, UNKNOWN Admitting Unavailable MAHAMED RM Attending Unavailable SHAWN BARBER Attending Unavailable SHAWN BARBER Attending Unavailable SHAWN BARBER Attending Unavailable BARBERSHAWN Referring Unavailable SHAWN BARBER Attending Unavailable Allergies Allergy Classification Reported Allergen(s) Allergy Type Date of Onset Reaction(s) Facility (20 sources) GRAPEFRUIT EXTRACT; Translations: [GRAPEFRUIT] Drug Allergy 3 rash, Unknown (qualifier value), Unknown [facility] (2 sources) virgin wool Propensity to adverse reactions Unknown [facility] Other (2 sources) pinneapple Propensity to adverse reactions rash [employer] Other (14 sources) Bee/Wasp/Ant venom; Translations: [Bee Stings] Drug allergy Swelling of body region (finding) [facility] (20 sources) Naproxen; Translations: [naproxen] Drug Allergy 5 Other, Unknown [facility] (20 sources) Pineapple; Translations: [PINEAPPLE] Drug allergy 3 Unknown (qualifier value), Other, Unknown [facility] (1 source) Bee Sting Drug allergy Unknown [facility] Other (2 sources) Naproxen Drug Allergy 5 [facility] Repository (1 source) Naproxen; Translations: [NAPROXEN SODIUM] Drug Allergy 5 [facility] Repository (1 source) BEE VENOM PROTEIN (HONEY BEE); Translations: [BEE VENOM PROTEIN (HONEY BEE)] Propensity to adverse reactions to drug (disorder) 3 [facility] Repository (1 source) WOOL; Translations: [WOOL] Propensity to adverse reactions to drug (disorder) 3 [facility] Repository (14 sources) bee venom; Translations: [BEE VENOM] Propensity to adverse reactions to drug 4 [facility] (17 sources) Lanolin; Translations: [LANOLIN] Drug Allergy 3 [facility] (14 sources) Extra Strength Grapefruit; Translations: [EXTRA STRENGTH GRAPEFRUIT] Propensity to adverse reactions to drug 3 Rash [facility] (3 sources) Honey bee venom Allergy to substance 3 [facility] Work Phone: (3 sources) Other Allergy to substance 3 [facility] (1 source) No Known Medication Allergies; Translations: [No Known Medication Allergies] Propensity to adverse reactions (disorder) [facility] Repository (1 source) GRAPEFRUIT EXTRACT; Translations: [GRAPEFRUIT EXTRACT] Drug Allergy 3 [facility] Repository Encounters Encounter Date Encounter Type Care Provider Facility Start: 03-15-2024 ambulatory Jacqui Michael Facility:[facility] Start: 10-13-2023 End: 10-13-2023 ambulatory SHAWN BARBER Not Available Start: 09-12-2023 Letter encounter Colt gonzalez DO Work Phone: [facility] Start: 09-10-2023 End: 09-10-2023 ambulatory SHAWN BARBER Not Available Start: 09-08-2023 End: 09-09-2023 ambulatory KAYDEN LEE Facility:[facility] Start: 09-08-2023 End: 09-08-2023 Office outpatient visit 15 minutes Colt Live DO Work Phone: [facility] Comment on above: Closed displaced int ertrochanteric fracture of right femur, initial encounter (HCC) (Primary Dx) Start: 09-08-2023 End: 09-08-2023 Subsequent hospital visit by physician Phe Op X-Ray 4 [facility] Comment on above: Closed displaced int ertrochanteric fracture of right femur, initial encounter (HCC) Start: 09-07-2023 End: 09-08-2023 ambulatory Shaye Pittman Facility:[facility] Start: 09-07-2023 End: 09-07-2023 Patient encounter procedure Shaye Pittman [facility] Start: 08-18-2023 ambulatory [facility]ENG LEOS [facility] Start: 08-18-2023 End: 08-18-2023 Patient encounter procedure Meng Leos DMD, MD Work Phone: [facility] Oral Surgery Comment on above: Edentulous (Primary Dx) Start: 08-12-2023 End: 08-12-2023 ambulatory SHAWN B SUNIL Not Available Start: 08-11-2023 End: 08-12-2023 ambulatory ANNIKA KABA [facility] Start: 07-26-2023 End: 07-26-2023 Office outpatient visit 25 minutes Annika Kaba TORPEDO MAN-INDUSTRIAL TRAINER Work Phone: [facility] Comment on above: Anticoagulated (Prim omar Dx); Paroxysmal atrial fibrillation (CMS/HCC); Nonrheumatic aortic valve stenosis; Abnormal echocardiogram; Pulmonary hypertension (CMS/HCC); Mixed hyperlipidemia; Essential hypertension; Diabetes mellitus type II, non insulin dependent (CMS/HCC); Stage 3b chronic kidney disease (CMS/HCC); BMI 25.0-25.9,adult; Current smoker Start: 07-07-2023 End: 07-08-2023 ambulatory [facility] Start: 07-06-2023 End: 07-06-2023 ambulatory MAHAMED RM Not Available Start: 06-16-2023 Clinisync Result Encounter Annabelle Rivas MD Work Phone: [facility] External Department Unsolicited Start: 06-16-2023 Clinisync Result Encounter Annabelle Rivas MD Work Phone: [facility] External Department Unsolicited Start: 06-15-2023 ambulatory Elmo Allen RN Work Phone: [facility] Care Management/Patient Access Start: 06-15-2023 Coordination of care plan Epifanio Allen RN Work Phone: [facility] Care Management/Patient Access Comment on above: Care Coordination; T ransitional Care Management Start: 06-14-2023 Clinisync Result Encounter Annabelle Rivas MD Work Phone: [facility] External Department Unsolicited Start: 06-14-2023 Clinisync Result Encounter Annabelle Rivas MD Work Phone: [facility] External Department Unsolicited Start: 06-11-2023 Clinisync Result Encounter Jose Conti BALE STACKER Work Phone: [facility] External Department Unsolicited Start: 06-11-2023 Clinisync Result Encounter Jose Conti BALE STACKER Work Phone: [facility] External Department Unsolicited Start: 06-09-2023 End: 06-10-2023 ambulatory KAYDEN LEE Facility:[facility] Start: 06-09-2023 End: 06-09-2023 Patient encounter procedure Coltreyna Live DO Work Phone: [facility] Comment on above: Closed displaced int ertrochanteric fracture of right femur, initial encounter ([facility]) (Primary Dx) Start: 06-09-2023 End: 06-09-2023 Subsequent hospital visit by physician Phe Op X-Ray 4 [facility] Comment on above: Closed displaced int ertrochanteric fracture of right femur, initial encounter (HCC) Start: 06-07-2023 Ancillary Orders Kayden Lee PA-C Work Phone: [facility] Start: 06-01-2023 ambulatory Elmo Allen RN Work Phone: [facility] Care Management/Patient Access Start: 06-01-2023 Coordination of care plan Epifanio Allen RN Work Phone: [facility] Care Management/Patient Access Comment on above: Care Coordination; T ransitional Care Management Start: 05-25-2023 ambulatory Elmo Allen RN Work Phone: [facility] Care Management/Patient Access Start: 05-25-2023 Coordination of care plan Epifanio Allen RN Work Phone: [facility] Care Management/Patient Access Comment on above: Care Coordination; T ransitional Care Management Start: 05-19-2023 ambulatory Elmo Allen RN Work Phone: [facility] Care Management/Patient Access Start: 05-19-2023 Follow-up encounter Elmo de leon RN Work Phone: [facility] Care Management/Patient Access Comment on above: Care Coordination; T ransitional Care Management; Hospital follow-up Start: 05-14-2023 ambulatory Lani Garcia ty:[facility] Start: 05-14-2023 Evaluation and manag ement of inpatient UNKNOWN PROVIDER Facility:[facility] Start: 05-13-2023 End: 05-18-2023 Evaluation and management of inpatient LALI RIVERA Facility:[facility] Start: 05-07-2023 End: 05-08-2023 ambulatory [facility] Start: 04-29-2023 End: 04-29-2023 Subsequent hospital visit by physician Doreen Garcia Echo/Vasc Room 2 [facility] Comment on above: Nonrheumatic aortic valve stenosis; Pulmonary hypertension ([facility]/HCC) Start: 04-28-2023 End: 04-29-2023 ambulatory Jacqui Michael Facility:[facility] Start: 04-28-2023 End: 04-28-2023 Patient encounter procedure Jacqui Michael [facility] Start: 04-20-2023 End: 04-20-2023 ambulatory [facility] Start: 04-20-2023 ambulatory Jacqui Michael Facility:[facility] Start: 04-19-2023 End: 04-19-2023 ambulatory SHAWN BARBER Not Available Start: 04-05-2023 End: 04-05-2023 ambulatory SHAWN B BARBER Not Available Start: 03-30-2023 End: 03-30-2023 Office outpatient visit 25 minutes Annika Kaba TORPEDO MAN-INDUSTRIAL TRAINER Work Phone: [facility] Comment on above: Paroxysmal atrial fi brillation ([facility]/HCC) (Primary Dx); Anticoagulated; Nonrheumatic aortic valve stenosis; Abnormal echocardiogram; Pulmonary hypertension ([facility]); Stage 3a chronic kidney disease ([facility]); Current smoker; Diabetes mellitus type II, non insulin dependent ([facility]); BMI 31.0-31.9,adult; Mixed hyperlipidemia; Essential hypertension Start: 02-22-2023 End: 02-23-2023 ambulatory Jacqui Michael Facility:[facility] Start: 02-22-2023 End: 02-22-2023 Patient encounter procedure Jacqui Michael [facility] Start: 02-03-2023 End: 02-04-2023 ambulatory Jacqui Michael Facility:[facility] Start: 02-03-2023 End: 02-04-2023 ambulatory Jacqui Michael Facility:[facility] Start: 02-03-2023 End: 02-03-2023 Patient encounter procedure [facility] Start: 12-29-2022 End: 12-30-2022 ambulatory INES WELCH Facility:[facility] Start: 12-29-2022 End: 12-29-2022 Patient encounter procedure INES WELCH [facility] Start: 12-28-2022 Patient encounter procedure Balaji Barber Work Phone: [facility] [place] 250 DO Work Phone: Start: 12-28-2022 ambulatory Annika Kaba Facility:[id number] Start: 11-21-2022 ambulatory Annika Kaba Facility:[id number] Start: 11-20-2022 ambulatory Annika Kaba Facility:[id number] Start: 11-19-2022 ambulatory Annika Kaba Facility:[id number] Start: 11-18-2022 ambulatory Annika Kaba Facility:[id number] Start: 11-18-2022 End: 11-21-2022 Evaluation and management of inpatient Hilary Antunez Facility:[facility] Start: 11-18-2022 End: 11-21-2022 Evaluation and management of inpatient MARTHA Barber Work Phone: [facility] [place] [facility] Work Phone: Start: 10-27-2022 End: 10-27-2022 ambulatory [facility] Start: 09-22-2022 End: 09-22-2022 ambulatory [facility] Start: 09-11-[address] SHAWN BARBER Facilit y:[facility] Start: 09-06-2022 End: 09-08-2022 Evaluation and management of inpatient DR LALI RIVERA . Facility:[facility] Start: 08-27-2022 End: 08-27-2022 ambulatory Ziggy Charlie Other [employer] Other Start: 08-27-2022 Office outpatient ne w 45 minutes Ziggy Charlie [facility] Start: 07-29-2022 End: 07-29-2022 Patient encounter procedure Jacqui Michael [facility] Start: 07-22-[address] SHAWN BARBER Facilit y:[facility] Start: 07-08-2022 End: 07-08-2022 Patient encounter procedure INES WELCH [facility] Start: 07-07-2022 End: 07-07-[address] SILVA MAXWELL Facility:[facility] Start: 07-06-2022 End: 07-06-2022 ambulatory SILVA [facility] Start: 06-15-2022 End: 06-16-2022 ambulatory INES WELCH Facility:[facility] Start: 06-14-2022 End: 06-15-2022 ambulatory INES WELCH Facility:[facility] Start: 06-10-2022 End: 06-10-2022 Lab Drop off Jacqui Michael [facility] Start: 06-10-2022 End: 06-10-2022 Patient encounter procedure Jacqui PerezJesse Alec [facility] Start: 05-05-2022 End: 05-06-[address] ANITA KEYS Facility:[facility] Start: 04-16-2022 End: 04-16-2022 ambulatory MADI HENRY Facility:[facility] Start: 04-15-2022 End: 04-28-[address] JOSE SON . Facility:[facility] Start: 04-13-2022 End: 04-13-2022 ambulatory [facility] Start: 04-10-2022 End: 04-13-2022 Evaluation and [...] End: 02-16-2022 Patient encounter procedure Kylah BELL [facility] Start: 02-06-2022 End: 02-06-2022 Patient encounter procedure Lani Wasserman [facility] Start: 12-31-2021 End: 05-07-2022 Recurring Kylah BELL [facility] Start: 12-31-2021 End: 12-31-2021 Patient encounter procedure Lani Wasserman [facility] Start: 12-13-2021 End: 12-13-2021 ambulatory Smiley Davila Other [employer] Other Start: 12-13-2021 Office outpatient ne w 20 minutes Smiley Davila [facility] Start: 11-28-2021 End: 11-28-2021 ambulatory JOHN RENEE Facility:[facility] Start: 10-07-2021 End: 10-08-[address] MAHAMED RM Facility:[facility] Start: 09-23-2021 End: 09-24-[address] MAHAMED RM Facility:[facility] Start: 08-24-2017 End: 08-25-2017 Ambulatory KASANDRA BROWN Facility:[facility] Medical Equipment Procedure Code Equipment Code Equipment Origin al Text Equipment Identifier Dates Gamma Long Nail Right 10mm X 360mm 130deg Sterile [id number] Start: 05-14-2023 Scr Bn 10.5mm 85 mm Gma Lg Strl [id number] - [id number] Start: 05-14-2023 Inject 1 each un gino the skin in the morning and 1 each before bedtime. [id number] Goals Date Patient Goal Desired Activity /State Immunizations Immunization Date Immunization Notes Care Provider Fa cility 05-20-2023 Pneumococcal conjuga te 20 valent (PCV20), polysaccharide [id number] conjugate, adjuvant, PF (ISZ=531) Meng Leos DMD, MD Work Phone: [facility] 05-20-2023 tuberculin skin test ; unspecified formulation Meng Leos DMD, MD Work Phone: [facility] 05-18-2023 Hemoglobin A1C Elmo ambrose RN Work Phone: [facility] 03-01-2023 influenza virus vaccine, unspecified formulation Jacqui Lue [facility] 03-01-2023 Influenza, High-dose Seasonal, Quadrivalent, Preservative Free Jose Conti BALE STACKER Work Phone: [facility] 02-05-2022 influenza virus vaccine, unspecified formulation Jacqui Lue [facility] 02-05-2022 Influenza, High-dose Seasonal, Quadrivalent, Preservative Free Jose Conti BALE STACKER Work Phone: [facility] 01-31-2022 influenza virus vaccine, unspecified formulation Jacqui Lue [facility] 01-31-2022 influenza, high dose seasonal, preservative-free Shawn B Barber Work Phone: [facility] 250 DO Work Phone: 03-05-2021 influenza virus vaccine, unspecified formulation Jacqui Lue [facility] 03-05-2021 influenza, high dose seasonal, preservative-free Shawn B Barber Work Phone: [facility] 03-22-2020 influenza virus vaccine, unspecified formulation Jacqui Lue [facility] 03-15-2020 influenza virus vaccine, unspecified formulation Jacqui Lue [facility] 03-15-2020 influenza, high dose seasonal, preservative-free Shawn B Barber Work Phone: [facility] 250 DO Work Phone: 02-09-2019 influenza virus vaccine, unspecified formulation Jacqui Lue [facility] 02-09-2019 influenza, high dose seasonal, preservative-free Shawn B Sunil Work Phone: [facility] 250 DO Work Phone: 02-17-2018 influenza virus vaccine, unspecified formulation Jacqui Lue [facility] 02-17-2018 influenza, high dose seasonal, preservative-free Shawn B Sunil Work Phone: [facility] 250 DO Work Phone: 01-25-2017 influenza virus vaccine, unspecified formulation Jacqui Lue [facility] 01-25-2017 influenza, high dose seasonal, preservative-free Shawn B Sunil Work Phone: [facility] 250 DO Work Phone: 02-19-2016 influenza virus vaccine, unspecified formulation Jacqui Lue [facility] 02-19-2016 influenza, injectabl e, quadrivalent, contains preservative Shawn B Sunil Work Phone: [facility] 250 DO Work Phone: 02-06-2016 zoster vaccine, live Jacqui L ue [facility] 02-03-2016 pneumococcal polysaccharide vaccine, 23 valent Jacqui Lue [facility] 04-12-2015 pneumococcal conjuga te vaccine, 13 valent Jacqui Lue [facility] 01-21-2015 pneumococcal polysaccharide vaccine, 23 valent Elmo Allen RN Work Phone: [facility] 01-21-2015 seasonal influenza, intradermal, preservative free Elmo Allen RN Work Phone: [facility] 02-05-2014 influenza, seasonal, injectable Jose Conti BALE STACKER Work Phone: [facility] NEGATED: Highlighted row has not occurred!12-31-2021 influenza virus vaccine, unspecified formulation Lani Wasserman [facility] Medications Current Medications Medication Drug Class(es) Dates Sig (Normalized) Sig (Original) acetaminophen 500 mg oral tablet (13 sources) Start: 05-18-2023 take 2 tablets by mouth every six hours as needed acetaminophen (TYLENOL) 500 MG tablet Take 2 Tablets by mouth every 6 hours as needed. 80 Tablet 0 05/18/2023 Active acetaminophen 325 mg / HYDROcodone bitartrate 5 mg oral tablet (20 sources) Opioid Agonist Start: 12-29-2022 acetaminophen-hydro codone 325 mg-5 mg oral tablet Refill(s) 0 Start Date: 12/29/22 Status: Ordered Start: 11-18-2022 take 1 tablet by marshal th every six hours as needed hydrocodone-acetaminophen (NORCO) 5-325 mg per tablet Take 1 Tablet by mouth every 6 hours as needed. 0 11/18/2022 Active Start: 11-18-2022 take 1 tablet by marshal [...] hrs Active albuterol 0.83 mg/ml inhalation solution (20 sources) beta2-Adrenergic Agonist Start: 11-19-2022 take 2.5 mg by inhalation every six hours Albuterol Sulfate Active 2.5 MG INHALATION Q6H November 19, 2022 12:00am Start: 11-18-2022 Albuterol Sulf ate (Ventolin Hfa) 90 mcg/actuation HFA aerosol inhaler Active INHALATION November 18, 2022 12:00am Start: 02-24-2022 take 2 puff(s) by in halation every four hours albuterol (Ventolin HFA) INHALATION HFA inhaler (VENTOLIN,PROAIR,PROVENTIL) 90mcg Inhale 2 puffs every 4 hours by inhalation route. 0 02/24/2022 Active Start: 05-11-2017 take 1 puff(s) by in halation every four hours ProAir HFA 90 mcg/inh inhalation aerosol 1 puff(s), Inhalation, q4hr Shortness of breath or wheezing, Refill(s) 0 Start Date: 05/11/17 Status: Ordered albuterol 2.5 mg /3 mL (0.083 %) nebulizer solution Take 3 mL (2.5 mg) by nebulization. 0 Active take 2 puff(s) by in halation every four hours for wheezing Ventolin HFA 108 (90 Base) MCG/ACT inhaler Inhale 2 puffs every 4 (four) hours if needed for wheezing or shortness of breath. 0 Active take 1-2 puff(s) by mouth [...] hrs Active ALPRAZolam 1 mg oral tablet (20 sources) Benzodiazepine Start: 01-22-2023 take 1 tablet by mouth three times daily as needed ALPRAZolam (XANAX) 1 MG tablet Take 1 mg by mouth 3 times daily as needed. 0 01/22/2023 Active Start: 11-18-2022 take 1 mg by mouth twice daily Alprazolam Active 1 MG PO Twice daily November 18, 2022 12:00am Start: 08-16-2014 take 1 tablet by marshal th three times daily as needed for anxiety alprazolam 1 mg Tab 1 mg = 1 tab(s), Oral, TID, PRN for anxiety, Refills(s) 0, Anxiety Start Date: 08/16/14 Status: Ordered take 1 mg by mouth e very twenty-four hours as needed ALPRAZolam XR (Xanax XR) 1 mg 24 hr tablet Take 1 tablet (1 mg) by mouth once daily as needed. Do not crush, chew, or split. 0 Active take 1 tablet by marshal th every twelve hours ALPRAZolam 1 MG 1 tablet Orally Twice a day Active Amino Acids (3 sources) take 15 g by mouth every eight hours AMINO ACIDS PO Take 15 g by mouth every 8 (eight) hours. 0 Active apixaban 2.5 mg oral tablet (20 sources) Factor Xa Inhibitor Start: 07-26-2023 End: 07-25-2024 take 1 tablet by mouth twice daily apixaban (Eliquis) 2.5 mg tablet Indications: Paroxysmal atrial fibrillation (CMS/HCC) , Anticoagulated Take 1 tablet (2.5 mg) by mouth 2 times a day. 60 tablet 11 07/26/2023 07/25/2024 Active Start: 12-29-2022 take 1 tablet by marshal th in the morning apixaban (Eliquis) 5 MG tablet Indications: Nonrheumatic aortic valve stenosis Take 1 tablet (5 mg) by mouth in the morning and 1 tablet (5 mg) before bedtime. 60 tablet 0 05/11/2023 Active Start: 11-18-2022 take 1 tablet by marshal th once daily Apixaban (Eliquis) 5 mg tablet Active 5 MG PO Daily November 18, 2022 12:00am Start: 04-05-2022 End: 07-26-2023 take 1 tablet by mouth twice daily Apixaban (ELIQUIS) 5 MG tablet Take 5 mg by mouth 2 times daily. 0 04/05/2022 Active ascorbic acid 500 mg extended release oral capsule (3 sources) Vitamin C take 1 capsule by mouth in the morning ascorbic acid (Vitamin C) 500 MG ER capsule Take 500 mg by mouth in the morning. 0 Active atorvastatin 20 mg oral tablet (20 sources) HMG-CoA Reductase Inhibitor Start: 5 take 1 tablet by mouth once daily atorvastatin (LIPITOR) 20 mg tablet Take 20 mg by mouth daily. 0 12/17/2022 Active benzonatate 100 mg oral capsule (4 sources) Non-narcotic Antitussive Start: 3 take 1 capsule by mouth three times daily as needed for cough benzonatate (Tessalon) 100 MG capsule Take 100 mg by mouth 3 (three) times a day as needed for cough. 0 02/23/2023 Active take 1 capsule by mouth every ei ght hours Tessalon Perles 100 MG 1 capsule as needed Orally Three times a day Active bisacodyl 5 mg delayed release oral tablet (12 sources) Stimulant Laxative Start: 05-18-2023 End: 06-17-2023 take 2 tablets by mouth once daily as needed for constipation bisacodyl (DULCOLAX) 5 MG enteric coated tablet Take 2 Tablets by mouth daily as needed for Constipation. 30 Tablet 0 05/18/2023 Active brexpiprazole 1 mg oral tablet (20 sources) Atypical Antipsychotic Start: 01-24-2022 take 1 tablet by mouth at bedtime brexpiprazole (Rexulti) 1 MG TABS tablet Take 1 Tablet by mouth at bedtime. 0 01/24/2022 Active Start: 03-11-2021 [facility] 4 tablets [facility] daily Rexulti 0.25 mg oral tablet mg tab(s), Oral, Daily, Refills(s) 0, Depression Start Date: 03/11/21 Status: Ordered take 1 tablet by marshal every twenty-four hours Rexulti 2 MG 1 tablet Orally Once a day Active take 1 tablet by marshal th every twenty-four hours Rexulti 0.5 MG 1 tablet Orally Once a day Active bumetanide 2 mg oral tablet (20 sources) Loop Diuretic Start: 05-17-2023 take 1 tablet by mouth once daily bumetanide (Bumex) 2 mg tablet Take 1 tablet (2 mg) by mouth once daily. 0 05/17/2023 Active Start: 11-27-2022 End: 11-22-2023 take 1 tablet by mouth twice daily bumetanide (BUMEX) 2 MG tablet Take 2 mg by mouth 2 times daily. 0 11/27/2022 11/22/2023 Active Start: 11-27-2022 End: 11-22-2023 bumetanide 1 mg Tab Refills( s) 0 Start Date: 12/29/22 Status: Ordered Start: 11-18-2022 take 2 mg by mouth o nce daily in the morning Bumetanide Active 2 MG PO Every morning November 18, 2022 12:00am Start: 11-18-2022 take 1 mg by mouth o nce daily at bedtime Bumetanide Active 1 MG PO Daily at bedtime November 18, 2022 12:00am Start: 03-28-2022 End: 07-26-2023 take 2 tablets by mouth at bedtime bumetanide (BUMEX) 1 MG tablet Take 2 mg by mouth at bedtime. 0 03/28/2022 Active take 1 tablet by marshal th every twenty-four hours Bumetanide 1 MG 1 tablet Orally Once a day Active calcium carbonate 1250 mg ch ewable tablet (20 sources) calcium carbonat e (OS-PEDRO) 1250 (500 Ca) MG chewable tablet Take 500 mg by mouth 3 times a day. 0 Active calcium carbonat e (Tums) 200 mg calcium chewable tablet Chew 1 tablet (500 mg) once daily. 0 Active calcium carbonate 600 mg / cholecalciferol 0.01 mg oral tablet (5 sources) Vitamin D Start: 05-28-2023 take 1 tablet by mouth twice daily Calcium Carb-Cholecalciferol 600-10 MG-MCG tablet Indications: Decreased estrogen level Take 1 tablet by mouth twice daily 60 tablet 0 05/28/2023 Active Start: 11-18-2022 take 1 tablet by marshal th twice daily Calcium Carbonate-Vitamin D3 Active 400 TAB PO Twice daily November 18, 2022 12:00am Calcium Carbonate / Vitamin D (3 sources) take 1 tablet by mouth once Calcium Carbonate-Vitamin D (CALCIUM CARBONATE W/VITAMIN D PO) Take 1 tablet by mouth every 12 (twelve) hours. 0 Active Calcium Carbonate-Vitamin D 600-5 MG-MCG (1 source) take 1 tablet by mouth twice daily Calcium Carbonate-Vitamin D 600-5 MG-MCG 1 tablet Orally Twice a day Active cholecalciferol 0.025 mg oral tablet (16 sources) Vitamin D Start: calcium (as carbonate)-vitamin D 90 mg-25 mcg (1000 intl units) oral tablet Refill(s) 0, Prophylaxis Start Date: 12/31/21 Status: Ordered Start: 12-31-2021 calcium (as ca rbonate)-vitamin D 90 mg-25 mcg (1000 intl units) oral tablet Refill(s) 0, Prophylaxis Start Date: 12/31/21 Status: Ordered take 1 capsule by [facility] in the morning cholecalciferol (Vitamin D-3) 50 MCG (1999 UT) capsule Take 2,000 Units by mouth in the morning. 0 Active ciprofloxacin 500 mg oral tablet (6 sources) Quinolone Antimicrobial Start: 02-22-2023 End: 07-26-2023 take 1 tablet by mouth every twelve hours Cipro 500 mg Tab 500 mg = 1 tab(s), Oral, q12hr, X 7 day(s), # 14 tab(s), Refills(s) 0, Pharmacy: [id number], 153, cm, 02/12/23 11:42:00 EDT, Height/Length Dosing, 68.3, kg, 02/03/23 9:09:00 EDT, Weight Dosing Start Date: 02/22/23 Stop Date: 03/01/23 Status: Ordered Start: 02-03-2023 End: 02-06-2023 take 1 tablet by mouth twice daily Cipro 500 mg Tab 500 mg = 1 tab(s), Oral, BID, X 3 day(s), # 6 tab(s), Refills(s) 0, Pharmacy: [id number], 153, cm, 02/03/23 9:09:00 EDT, Height/Length Dosing, 68.3, kg, 02/03/23 9:09:00 EDT, Weight Dosing Start Date: 02/03/23 Stop Date: 02/06/23 Status: Ordered Continuous Blood Gluc Receiv er (FreeStyle Lilliam 2 Vidal) device (6 sources) Start: 05-17-2023 End: 05-16-2024 Continuous Blood Gluc Receiv er (FreeStyle Lilliam 2 Vidal) device Indications: Diabetic peripheral neuropathy associated with type 2 diabetes mellitus (CMS/HCC) 1 each in the morning and 1 each at noon and 1 each in the evening and 1 each before bedtime. 1 each 0 05/17/2023 05/16/2024 Active Start: 04-02-2023 End: 04-01-2024 Continuous Blood Gluc Receiv er (FreeStyle Lilliam 2 Vidal) device Indications: Diabetic peripheral neuropathy associated with type 2 diabetes mellitus (CMS/HCC) 1 Product yearly. 1 each 0 04/02/2023 04/01/2024 Active Continuous Blood Gluc Sensor (FreeStyle Lilliam 2 Sensor) misc (6 sources) Start: 05-17-2023 End: 05-16-2024 Continuous Blood Gluc Sensor (FreeStyle Lilliam 2 Sensor) misc Indications: Diabetic peripheral neuropathy associated with type 2 diabetes mellitus (CMS/HCC) 1 each every 14 (fourteen) days 6 each 3 05/17/2023 05/16/2024 Active Start: 04-02-2023 End: 04-01-2024 Continuous Blood Gluc Sensor (FreeStyle Lilliam 2 Sensor) misc Indications: Diabetic peripheral neuropathy associated with type 2 diabetes mellitus (CMS/HCC) Inject 1 application under the skin every 14 (fourteen) days. 6 each 3 04/02/2023 04/01/2024 Active cyclobenzaprine hydrochloride 10 mg oral tablet (20 sources) Muscle Relaxant Start: 11-18-2022 cyclobenzaprin e 10 mg Tab Refills(s) 0 Start Date: 12/29/22 Status: Ordered take 1 tablet by marshal th every twenty-four hours Cyclobenzaprine HCl 10 MG 1 tablet at bedtime as needed Orally Once a day Active dapagliflozin 10 mg oral tablet (20 sources) Sodium-Glucose Cotransporter 2 Inhibitor Start: 10-27-2022 End: 11-25-2023 take 1 tablet by mouth once daily dapagliflozin (FARXIGA) 10 MG TABS tablet Take 10 mg by mouth daily. 0 10/27/2022 Active 1 ml denosumab 60 mg/ml prefilled syringe (3 sources) RANK Ligand Inhibitor denosumab (Prolia) 60 MG/ML solution prefilled syringe Inject 60 mg under the skin every 6 (six) months. 0 Active dexamethasone 1 mg oral tablet (3 sources) Corticosteroid Start: 06-10-2022 take 1 tablet by mouth once dexamethasone 1 mg oral tablet 1 mg = 1 tab(s), Oral, Once, take at 11pm. complete cortisol level at 8am., # 1 tab(s), Refills(s) 0, Pharmacy: [id number], 154, cm, 06/10/22 10:26:00 EST, Height/Length Dosing, 86, kg, 06/10/22 10:26:00 EST, Weight Dosing Start Date: 06/10/22 Status: Ordered diphenhydrAMINE hydrochloride 25 mg oral capsule (3 sources) Histamine-1 Receptor Antagonist diphenhydrAMINE (BENADryl) 25 MG capsule Take 25 mg by mouth as needed at bedtime for itching or allergies. 0 Active 0.5 ml dulaglutide 1.5 mg/ml auto-injector (20 sources) GLP-1 Receptor Agonist Start: 11-18-2022 inject 0.75 mg by subcutaneous injection once dulaglutide (Trulicity) 0.75 MG/0.5ML SOPN injection pen Inject 0.75 mg under the skin every Wednesday. 0 04/05/2023 Active Start: 05-10-2017 inject 1.5 mg by sub [...] Orally Active estradiol 0.1 mg/ml vaginal cream (8 sources) Estrogen Start: 05-02-2023 estradiol (Estrace) 0.01 % (0.1 mg/gram) vaginal cream 2 times a week. 0 05/02/2023 Active Start: 02-04-2023 estradiol (Est race) 0.1 MG/GM vaginal cream APPLY A PEA SIZE AMOUNT TO URETHRA OR INNER VAGINA 3 TIMES A WEEK FOR 1 MONTH THEN 2 TIMES A WEEK FOR MAINTENANCE 0 02/04/2023 Active Start: 02-03-2023 Estrace 0.1 mg /g Cream See Instructions, 42.5 gm, Refill(s) 3, apply pea size amount to urethra/inner vagina 3x/week x 1 month, then 2x/week for maintainence, [id number], 153, cm, 02/03/23 9:09:00 EDT, Height/Length Dosing, 68.3, kg, 02/03/23 9:09:00 EDT, Weight Dosing Start Date: 02/03/23 Status: Ordered ferrous sulfate (8 sources) Start: 12-31-2021 ferrous sulfat e Oral, Refills(s) 0, Prophylaxis Start Date: 12/31/21 Status: Ordered Start: 12-31-2021 ferrous sulfat e Oral, Refills(s) 0 Start Date: 12/31/21 Status: Ordered Fish Oils (13 sources) Start: 05-11-2017 take 1000 mg by mouth once daily Fish Oil 1,000 mg, Oral, Daily, Refill(s) 0, Prophylaxis Start Date: 05/11/17 Status: Ordered FLUoxetine 40 mg oral capsule (20 sources) Serotonin Reuptake Inhibitor Start: 08-16-2014 take 1 capsule by mouth once daily fluoxetine (PROZAC) 40 MG capsule Take 40 mg by mouth daily. 0 02/14/2022 Active take 1 capsule by [facility] every twenty-four hours FLUoxetine HCl 20 MG 1 capsule Orally Once a day Active Fluticasone Propion-Salmeterol (20 sources) Corticosteroid, beta2-Adrenergic Agonist Start: 11-18-2022 Fluticasone Propion-Salmeterol (Advair Diskus) 250-50 mcg/dose blister with device Active 2 INH INHALATION Four times daily November 18, 2022 12:00am Start: 05-11-2017 take 1 puff(s) by in halation twice daily Advair 250 mcg-50 mcg Powder 1 puff(s), Inhalation, BID, Refill(s) 0, Shortness of breath or wheezing Start Date: 05/11/17 Status: Ordered take 2 puff(s) by [facility] four times daily fluticasone-salmeterol (ADVAIR DISKUS) 250-50 MCG/ACT inhaler Inhale 2 Puffs by mouth 4 times daily. 0 Active take 1 puff(s) by inhalation onc e Fluticasone-Salmeterol (Advair Diskus) 250-50 MCG/ACT aerosol powder Inhale 1 puff every 12 (twelve) hours. 0 Active take 1 puff(s) by [facility] twice daily fluticasone propion-salmeteroL (Advair Diskus) 250-50 [...] insulin, regular, human 30 unt/ml injectable suspension (15 sources) Insulin Start: 02-03-2023 Novolin 70/30 10 mL Susp-Inj Refills(s) 0 Start Date: 02/03/23 Status: Ordered Start: 01-17-2023 inject 20 [IU] by [place] bcutaneous injection in the morning NovoLIN 70/30 (70-30) 100 UNIT/ML injection Inject 20 Units under the skin in the morning and 20 Units in the evening. Inject before meals. 0 01/17/2023 Active Start: 05-10-2017 Novolin 70/30 45 - 50 units, SubCutaneous, BIDAC, Refill(s) 0, Blood glucose Start Date: 05/10/17 Status: Ordered insulin lispro 100 unt/ml injectable solution (1 source) Insulin Analog Insulin Lispro 1 00 UNIT/ML as directed Injection Active isopropyl alcohol 0.7 ml/ml medicated pad (3 sources) Start: 06-12-2022 Alcohol Swabs (B-D SINGLE USE SWABS REGULAR) pads Apply 1 Swab topically 1 (one) time each day. 0 06/12/2022 Active ammonium lactate 120 mg/ml topical lotion (5 sources) Start: 11-18-2022 Ammonium Lactate Active TOPICAL November 18, 2022 12:00am Lactobacillus (13 sources) take 1 tablet by mouth every eight hours LACTOBACILLUS ORAL Take 1 Tablet by mouth every 8 hours. 0 Active lactobacillus acidophilus 0.05 mg / lactobacillus bulgaricus 0.05 mg oral tablet (1 source) Lactobacillus Probiotic - as directed Orally TWICE A DAY Active Lactobacillus pack (3 sources) take 1 tablet by mouth every eight hours Lactobacillus pack Take 1 tablet by mouth every 8 (eight) hours. 0 Active Keppra (20 sources) Start: 04-28-2023 Keppra BID, Refills(s) 0 Start Date: 04/28/23 Status: Ordered Start: 04-05-2023 End: 04-04-2024 take 1 tablet by mouth twice daily levETIRAcetam (KEPPRA) 250 MG tablet Take 250 mg by mouth 2 times daily. 0 04/05/2023 04/04/2024 Active take 1 tablet by marshal th twice daily levETIRAcetam (Keppra) 500 mg tablet Take 1 tablet (500 mg) by mouth 2 times a day. 0 Active lisinopril 20 mg oral tablet (19 sources) Angiotensin Converting Enzyme Inhibitor Start: 08-16-2014 End: 07-26-2023 take 1 tablet by mouth in the morning lisinopril 20 MG tablet Indications: Essential hypertension (CMS/HCC) Take 1 tablet (20 mg) by mouth in the morning. 100 tablet 3 12/17/2022 Active loratadine 10 mg oral tablet (7 sources) Start: 12-19-2022 take 1 tablet by mouth in the morning loratadine (Claritin) 10 MG tablet Take 10 mg by mouth in the morning. 0 12/19/2022 Active Magnesium (1 source) take 1 capsule by [...] Ordered magnesium oxide 400 mg oral tablet (20 sources) Start: 05-01-2022 End: 01-27-2023 take 1 tablet by mouth twice daily at mealtime magnesium oxide (MAG-OX) 400 mg (240 mg) tablet Take 400 mg by mouth 2 times daily (with meals). 0 05/01/2022 Active magnesium oxide (Mag-Ox) 400 mg tablet 1 tablet (400 mg) once daily. 0 Active metoclopramide 10 mg oral tablet (12 sources) Dopamine-2 Receptor Antagonist Start: 01-25-2020 Reglan 10 mg Tab 10 mg = 1 tab(s), Oral, QIDACHS, # 1 tab(s), Refills(s) 0, Pharmacy: [id number], 154, cm, 01/25/20 14:09:00 EDT, Height/Length Dosing, 88.5, kg, 01/25/20 14:09:00 EDT, Weight Dosing Start Date: 01/25/20 Status: Ordered metOLazone 2.5 mg oral tablet (20 sources) Thiazide-like Diuretic Start: 11-20-2022 take 1 tablet by mouth once daily metolazone (ZAROXOLYN) 2.5 MG tablet Take 2.5 mg by mouth daily. 0 11/24/2022 Active metoprolol tartrate 50 mg oral tablet (20 sources) beta-Adrenergic Georgie Start: 08-16-2014 End: 07-26-2023 metoprolol (LOPRESSOR) 50 MG tablet 50 mg 2 times daily. 0 04/27/2023 Active Midol Extended Relief (8 sources) Start: 08-02-2018 take 220 mg by mouth every eight hours as needed for pain Midol Extended Relief 220 mg, Oral, q8hr, PRN as needed for pain, Refills(s) 0 Start Date: 08/02/18 Status: Ordered 24 hr mirabegron 50 mg extended release oral tablet (2 sources) beta3-Adrenergic Agonist Start: 04-28-2023 take 1 tablet by mouth once daily Myrbetriq 50 mg oral tablet, extended release 50 mg = 1 tab(s), Oral, Daily, # 30 tab(s), Refills(s) 6, Pharmacy: [id number], 153, cm, 04/28/23 9:47:00 EST, Height/Length Dosing, 68.3, kg, 04/28/23 9:47:00 EST, Weight Dosing Start Date: 04/28/23 Status: Ordered Multi For Her 50+ - (1 source) Multi For Her 50 + - as directed Orally Active Multiple Vitamin (MULTIVITAMINS PO) (3 sources) take 1 tablet by mouth once daily Multiple Vitamin (MULTIVITAMINS PO) Take 1 tablet by mouth 1 (one) time each day. 0 Active naloxone hydrochloride 40 mg/ml nasal spray (13 sources) Opioid Antagonist Start: 05-18-2023 naloxone 4 mg/0.1 mL nasal liquid Use 1 [place] in one nostril (alternate sides) as needed for Drug Overdose for up to 1 dose. Every 2-3 mins. until help arrives. 1 Each 0 05/18/2023 Active omeprazole 40 mg delayed release oral capsule (20 sources) Proton Pump Inhibitor Start: 12-29-2022 omeprazole 40 mg Cap-DR Refills(s) 0 Start Date: 12/29/22 Status: Ordered ondansetron 4 mg oral tablet (13 sources) Serotonin-3 Receptor Antagonist Start: 12-29-2022 ondansetron 4 mg Tab Refills(s) 0 Start Date: 12/29/22 Status: Ordered Start: 11-11-2022 take 1 tablet by marshal th every six hours for nausea ondansetron (Zofran) 4 MG tablet Indications: Gastroesophageal reflux disease without esophagitis Take 1 tablet (4 mg) by mouth every 6 (six) hours if needed for nausea or vomiting. 120 tablet 5 11/11/2022 Active oxyCODONE hydrochloride 5 mg oral tablet (1 source) Opioid Agonist Start: 05-18-2023 End: 05-20-2023 take 1 tablet by mouth every six hours as needed oxyCODONE 5 MG immediate release tablet Indications: Closed displaced intertrochanteric fracture of right femur, initial encounter ([facility]) Take 1 Tablet by mouth every 6 hours as needed for up to 2 days. 8 Tablet 0 05/18/2023 05/20/2023 Active Oxygen (4 sources) oxygen (O2) gas Inhale 3 L/min continuously. via nasal canula 0 Active Oxygen 3-4 LPM Q uantity: 0 Refills: 0 Ordered: 28-Dec-2022 DO Active oxygen (O2) gas therapy (4 sources) oxygen (O2) gas therapy Inhale 1 each continuously. 0 Active pantoprazole 40 mg delayed release oral tablet (16 sources) Proton Pump Inhibitor take 1 tablet by mouth twice daily pantoprazole (PROTONIX) 40 MG tablet Take 40 mg by mouth 2 times daily. 0 Active polyethylene glycol 3350 30569 mg powder for oral solution (4 sources) Osmotic Laxative Start: 021 Miralax 3350 17 gram packet 17 gram, Oral, Daily, # 255 gram, Refills(s) 3, Pharmacy: [id number], 154, cm, 08/08/20 12:03:00 EDT, Height/Length Dosing, 88.1, kg, 08/08/20 12:03:00 EDT, Weight Dosing Start Date: 08/08/20 Status: Ordered polyethylene glycol 3350 792186 mg / potassium chloride 1480 mg / sodium bicarbonate 5720 mg / sodium chloride 51969 mg powder for oral solution (2 sources) Osmotic Laxative Start: 022 NuLYTELY Crane oral powder for reconstitution See Instructions, 1 EA, Refill(s) 0, Prior to colonoscopy., [id number], 154, cm, 12/31/21 14:58:00 EDT, Height/Length Dosing, 79.4, kg, 12/31/21 14:58:00 EDT, Weight Dosing Start Date: 12/31/21 Status: Ordered polymyxin b 74861 unt/ml / trimethoprim 1 mg/ml ophthalmic solution (1 source) Dihydrofolate Reductase Inhibitor Antibacterial, Polymyxin-class Antibacterial Start: 022 take 1 drop(s) into the eye(s) four times daily Polymyxin B-Trimethoprim 33745-5.1 UNIT/ML 1 drop into affected eye Ophthalmic Four times a day for 5 day(s) Dec, Active microencapsulated potassium chloride 20 meq extended release oral tablet (20 sources) Start: 023 End: 023 take 1 tablet by mouth once daily potassium chloride SA (K-DUR) 20 MEQ controlled release tablet Take 20 mEq by mouth daily. 0 10/15/2022 Active Start: 10-15-2022 take 1 tablet by marshal [facility] in the morning potassium chloride CR (K-Tab) 20 MEQ ER tablet Take 20 mEq by mouth in the morning. 0 10/15/2022 Active Start: 08-16-2014 Klor-Con M20 2 0 mEq, Oral, BID, Refills(s) 0, Prophylaxis Start Date: 08/16/14 Status: Ordered ProAir HFA 90 mcg/inh inhalation aerosol (5 sources) Start: 05-11-2017 take 1 puff(s) by inhalation every four hours ProAir HFA 90 mcg/inh inhalation aerosol 1 puff(s), Inhalation, q4hr Shortness of breath or wheezing, Refill(s) 0 Start Date: 05/11/17 Status: Ordered promethazine hydrochloride 25 mg oral tablet (15 sources) Phenothiazine Start: 05-11-2017 take 1 tablet by mouth every six hours for nausea promethazine (Phenergan) 25 MG tablet Indications: Gastroesophageal reflux disease without esophagitis Take 1 tablet (25 mg) by mouth every 6 (six) hours if needed for nausea or vomiting. 120 tablet 5 11/11/2022 Active psyllium 525 mg oral capsule (3 sources) Start: 12-31-2021 End: 03-31-2022 take 1 capsule by mouth once daily Metamucil 525 mg oral capsule 1 cap, Oral, Daily, X 90 day(s), # 90 cap(s), Refills(s) 0, Pharmacy: [id number], 154, cm, 12/31/21 14:58:00 EDT, Height/Length Dosing, 79.4, kg, 12/31/21 14:58:00 EDT, Weight Dosing Start Date: 12/31/21 Stop Date: 03/31/22 Status: Ordered sennosides, senior care 8.6 mg oral tablet (13 sources) Start: 05-18-2023 take 1 tablet by mouth once daily as needed for constipation senna (SENOKOT) 8.6 MG tablet Take 1 Tablet by mouth daily as needed for Constipation. 30 Tablet 0 05/18/2023 Active tiZANidine 4 mg oral tablet (20 sources) Central alpha-2 Adrenergic Agonist Start: 07-06-2023 tizanidine (ZANAFLEX) 4 MG tablet Start: 01-22-2023 take 1 tablet by marshal [facility] three times daily as needed for muscle spasms tiZANidine (Zanaflex) 4 MG tablet Indications: Muscle spasm TAKE 1 TABLET BY MOUTH THREE TIMES DAILY NEEDED FOR MUSCLE SPASM FOR 30 DAYS 90 tablet 3 01/22/2023 Active Start: 11-18-2022 take 4 mg by mouth t hree times daily Tizanidine Active 4 MG PO [...] DAY Active Ventolin HFA 90 mcg/inh Aerosol (13 sources) Start: 05-11-2017 take 2 puff(s) by [...] pharmacy (Rx) Start Date: 10/30/20 Status: Ordered triamcinolone acetonide 40 mg/ml injectable suspension (2 sources) Corticosteroid Start: 12-13-2021 Kenalog-40 Dec, 40 mg Payers Date Payer Category Payer Unknown 2021 Medicaid [id number] [id number] 2014 Unknown [id number] 2011 Medicare [id number]. [id number] 1959 Medicaid [id number] 2. 16.840.1.599972.19 1959 Medicare [id number] 2.1 6.840.1.202752.19 1959 Self-pay 1959 Unknown [id number] 2.16.8 40.1.526498.19 1948 Unknown [id number] 2.16.84 0.1.754008.3.579.2.593 1948 Unknown [id number] 2.16.84 0.1.472471.3.579.2.593 1948 Unknown [id number] 2.16.84 0.1.443812.3.579.2.593 1948 Unknown [id number] 2.16.84 0.1.745532.3.579.2.593 1948 Unknown [id number] 2.16.84 0.1.720525.3.579.2.593 1948 Unknown [id number] 2.16.84 0.1.485253.3.579.2.593 1948 Unknown [id number] 2.16.84 0.1.409736.3.579.2.593 1948 Unknown [id number] 2.16.84 0.1.351495.3.579.2.593 1948 Unknown [id number] 2.16.84 0.1.176022.3.579.2.593 1948 Unknown [id number] 2.16.84 0.1.022560.3.579.2.593 1948 Unknown [id number] 2.16.84 0.1.431671.3.579.2.593 1948 Unknown [id number] 2.16.84 0.1.098258.3.579.2.593 1948 Unknown [id number] 2.16.84 0.1.099436.3.579.2.593 1948 Unknown [id number] 2.16.84 0.1.457430.3.579.2.593 1948 Unknown [id number] 2.16.84 0.1.069083.3.579.2.593 1948 Unknown [id number] 2.16.84 0.1.914810.3.579.2.593 1948 Unknown [id number] 2.16.84 0.1.364624.3.579.2.593 1948 Unknown [id number] 2.16.84 0.1.360294.3.579.2.593 1948 Unknown [id number] 2.16. 840.1.935149.3.579.2.356 1948 Unknown [id number] 2.16. 840.1.021369.3.579.2.356 1948 Unknown [id number] 2.16. 840.1.474663.3.579.2.356 1948 Unknown [id number] 2.16. 840.1.169320.3.579.2.356 1948 Unknown [id number] 2.16. 840.1.397887.3.579.2.356 1948 Unknown [id number] 2.16.84 0.1.073507.3.579.2.1286 1948 Unknown [id number] 2.16.840 .1.465779.3.579.2.1286 1948 Unknown [id number] 2.16.8 40.1.724743.3.579.2.1286 1948 Unknown [id number] 2.16.8 40.1.376705.3.579.2.727 1948 Unknown [id number] 2.16.8 40.1.116745.3.579.2.727 1948 Unknown [id number] 2.16.8 40.1.071270.3.579.2.727 1948 Unknown [id number] 2.16.8 40.1.896140.3.579.2.727 1948 Unknown [id number] 2.16.8 40.1.335924.3.579.2.727 1948 Unknown [id number] 2.16.8 40.1.098062.3.579.2.727 1948 Unknown [id number] 2.16.8 40.1.790388.3.579.2.727 1948 Unknown [id number] 2.16.8 40.1.855277.3.579.2.727 1948 Unknown [id number] 2.16.8 40.1.406887.3.579.2.727 1948 Unknown [id number] ..1.175679.3.579.2.73 1948 Unknown [id number] .1.463217.3.579.2.73 1948 Unknown [id number] .1.049692.3.579.2.732 1948 Unknown [id number] .1.825931.3.579.2.73 1948 Unknown [id number] .1.452718.3.579.2.732 1948 Unknown [id number] .1.620030.3.579.2.73 1948 Unknown [id number] 0.1.896304.3.579.2.732 1948 Unknown [id number] .1.380349.3.579.2.73 1948 Unknown [id number] 2.16. 840.1.336480.3.579.2.732 1948 Unknown [id number] 2.16. 840.1.693967.3.579.2.732 1948 Unknown [id number] 2.16. 840.1.185949.3.579.2.732 1948 Unknown [id number] 2.16. 840.1.620832.3.579.2.732 1948 Unknown [id number] 2.16. 840.1.786436.3.579.2.732 1948 Unknown [id number] 2.16. 840.1.412305.3.579.2.732 1948 Unknown [id number] 2.16. 840.1.202203.3.579.2.732 1948 Unknown [id number] 2.16. 840.1.736321.3.579.2.732 1948 Unknown [id number] 2.16. 840.1.210150.3.579.2.732 1948 Unknown [id number] 2.16. 840.1.414441.3.579.2.732 1948 Unknown [id number] 2.16. 840.1.162245.3.579.2.732 1948 Unknown [id number] 2.16. 840.1.588535.3.579.2.732 1948 Unknown [id number] 2.16. 840.1.313685.3.579.2.732 1948 Unknown [id number] 2.16.84 0.1.596282.3.579.2.1259 1948 Unknown [id number] 2.16.84 0.1.178566.3.579.2.1259 1948 Unknown [id number] 2.16.84 0.1.643992.3.579.2.1259 1948 Unknown [id number] 2.16.84 0.1.991888.3.579.2.1259 1948 Unknown [id number] 2.16.840 .1.997343.3.579.2.1259 1948 Unknown [id number] 2.16.840 .1.198591.3.579.2.1259 Medicare [id number] Unknown [id number] 2.16.8 40.1.749664.3.579.2.531 Unknown [id number] Plan of Treatment Date Care Activity Detail Author Start: 02-17-2032 Screening for malignant neoplasm of colon [facility] Start: 02-01-2030 Screening for malignant neoplasm of colon [facility] Start: 08-10-2024 Creatinine measurement Basic Metabolic Panel [facility] Start: 05-18-2024 Creatinine measurement [facility] Start: 05-18-2024 Potassium measurement Potassium Level [facility] Start: 05-12-2024 Lipid panel Lipid Profile [facility] Start: 04-29-2024 Echocardiography Echocardiogram [facility] Start: 04-19-2024 Medicare Annual Wellness (AWV) Medicare Annual Wellness (AWV) [facility] Start: 04-13-2024 Screening for malignant neoplasm of breast [facility] Start: 01-24-2024 End: 01-24-2024 Patient encounter procedure 01/24/2024 2:30 PM EDT Office Visit [facility] [address] [facility] [address] [place] [address] Annika Kaba, [employer]ER [address] [facility] [address] [place] [address] [facility] Start: 11-19-2023 Echocardiography Echocardiogram [facility] Start: 11-17-2023 End: 11-17-2023 Patient encounter procedure 11/17/2023 1:30 PM EDT Office Visit [facility] [address] [place] [phone] [facility] Start: 11-16-2023 Hemoglobin A1c measurement Hemoglobin A1C [facility] Start: 09-08-2023 End: 09-08-2023 Patient encounter procedure 09/08/2023 1:00 PM EDT Office Visit [facility] [address] [place] [address] [employer] DO [address] [place] [address] [facility] Start: 08-19-2023 Glaucoma screening Diabetes: Retinopathy Screening [facility] Start: 08-18-2023 End: 08-18-2023 Patient encounter procedure 08/18/2023 1:00 PM EDT Office Visit [facility] [address] [place] [id number] Meng Leos DMD, MD [address] [place] [address] [facility] Start: 08-17-2023 Hemoglobin A1c measurement Diabetes: Hemoglobin A1C [facility] Start: 07-26-2023 End: 07-25-2024 Basic metabolic 2000 panel - Serum or Plasma Basic Metabolic Panel Lab Routine Stage 3b chronic kidney disease (CMS/HCC) Expected: 07/26/2023 (Approximate), Expires: 07/25/2024 [facility] Service Area Work Phone: Comment on above: Expected: 07/26/2023 (Approximate), Expi res: 07/25/2024 Start: 07-07-2023 End: 07-07-2023 Patient encounter procedure 07/07/2023 1:00 PM EST Office Visit [facility] [address] [place] [address] [employer] DO [address] [place] [address] [facility] Start: 06-09-2023 End: 06-09-2023 Patient encounter procedure [facility] Start: 06-07-2023 End: 06-07-2024 XR Femur - right 2 Views XR FEMUR RIGHT MINIMUM 2 VIEWS Imaging Routine Closed displaced intertrochanteric fracture of right femur, initial encounter ([facility]) Expected: 06/07/2023, Expires: 06/07/2024 [facility] Comment on above: Expected: 06/07/2023, Expires: Start: 06-07-2023 End: 06-07-2024 XR Pelvis and Hip - right Views XR HIP RIGHT W/ PELVIS MIN 2-3 VIEWS Imaging Routine Closed displaced intertrochanteric fracture of right femur, initial encounter ([facility]) Expected: 06/07/2023, Expires: 06/07/2024 [employer] Work Phone: Comment on above: Expected: 06/07/2023, Expires: Start: 05-12-2023 End: 05-12-2023 Patient encounter procedure 05/12/2023 2:30 PM EST Office Visit [facility] [address] [facility] [address] [place] [id number] Annika Kaba, [employer]RIAL TRAINER [address] [facility] [address] [place], [place] [id number] (work) [facility] Start: 04-29-2023 End: 04-29-2023 Patient encounter procedure 04/29/2023 2:30 PM EST Appointment [facility] [address] [facility] [address] [place] [phone] [facility] Start: 03-30-2023 End: 03-30-2024 Basic metabolic 2000 panel - Serum or Plasma Basic Metabolic Panel Lab Routine Paroxysmal atrial fibrillation (CMS/HCC) Expected: 03/30/2023 (Approximate), Expires: 03/30/2024 [facility] Service Area Work Phone: Comment on above: Expected: 03/30/2023 (Approximate), Expi res: 03/30/2024 Start: 03-30-2023 End: 03-30-2024 CBC panel - Blood by Automated count CBC Lab Routine Paroxysmal atrial fibrillation (CMS/HCC) Anticoagulated Expected: 03/30/2023 (Approximate), Expires: 03/30/2024 [facility] Work Phone: Comment on above: Expected: 03/30/2023 (Approximate), Expi res: 03/30/2024 Start: 03-30-2023 End: 03-30-2025 Heart Transthoracic Transthoracic Echo (TTE) Complete Echocardiography Routine Nonrheumatic aortic valve stenosis Pulmonary hypertension (CMS/HCC) Expected: 03/30/2023 (Approximate), Expires: 03/30/2025 [facility] Work Phone: Comment on above: Expected: 03/30/2023 (Approximate), Expi res: 03/30/2025 Start: 11-23-[address] [facility] Start: 11-23-2022 [facility] Start: 11-22-[address] [facility] Start: 11-22-2022 [facility] Start: 11-21-[address] [facility] Start: 11-21-2022 End: 11-21-2022 [facility] Start: 11-20-[address] [facility] Start: 11-20-2022 [facility] Start: 11-19-2022 Referral to shoe coverer [facility] Start: 11-19-[address] [facility] Start: 11-19-2022 End: 11-19-2022 [facility] Start: 11-18-[address] [facility] Start: 11-18-2022 [facility] Start: 08-18-2022 Glaucoma screening Eye Exam [facility] Start: 10-04-2021 Screening for osteoporosis Bone Density Scan [facility] Start: 05-30-2021 Screening for malignant neoplasm of breast Mammogram [facility] Start: 10-04-2020 Screening for osteoporosis Bone Density Scan [facility] Start: 04-02-2016 Shingles (RZV) Vaccine (2 of 3) Shingles (RZV) Vaccine (2 of 3) [facility] Start: 04-02-2016 Zoster Vaccines (2 of 3) Zoster Vaccines (2 of 3) [facility] Start: 2008 Hepatitis B (HBV) Vaccine (optional start 60+ years) Hepatitis B (HBV) Vaccine (optional start 60+ years) [facility] Start: 2008 Hepatitis B Vaccines (1 of 3 - Risk 3-dose series) Hepatitis B Vaccines (1 of 3 - Risk 3-dose series) [facility] Start: 2008 RSV vaccine (optional 60+ years) RSV vaccine (optional 60+ years) [facility] Start: 1998 Shingles (RZV) Vaccine (1 of 2) Shingles (RZV) Vaccine (1 of 2) [facility] Start: 1993 Screening for malignant neoplasm of colon [facility] Start: 1970 DTaP/Tdap/Td Vaccines (1 - Tdap) DTaP/Tdap/Td Vaccines (1 - Tdap) [facility] Start: 12-08-1967 Hepatitis A (HAV) Vaccine (optional start 19+ years) Hepatitis A (HAV) Vaccine (optional start 19+ years) [facility] Start: 12-08-1967 Hepatitis A Vaccines (1 of 2 - Risk 2-dose series) Hepatitis A Vaccines (1 of 2 - Risk 2-dose series) [facility] Start: 12-08-1967 Urine screening for protein Diabetes: Urine Protein Screening [facility] Start: 1966 Hepatitis C screening [facility] Start: 1966 Tetanus + diphtheria + acellular pertussis vaccine (product) Tdap Booster [facility] Start: 1958 Diabetic foot examination Diabetes: Foot Exam [facility] Start: 1958 Glaucoma screening Diabetes: Retinopathy Screening [facility] Start: 06-09-1949 COVID-19 Vaccine (#1) COVID-19 Vaccine (#1) [facility] Start: 1948 Glaucoma screening Eye Exam [facility] Start: 1948 Urine screening for protein Microalbumin [facility] Start: 1948 Creatinine measurement Creatinine Level [facility] Start: 1948 Diabetic foot examination Foot Exam [facility] Start: 1948 Hemoglobin A1c measurement Diabetes: Hemoglobin A1C [facility] Start: 1948 Lipid panel Lipid Panel [facility] Start: 1948 Medicare Annual Wellness Visit Medicare Annual Wellness Visit (AWV) [facility] Start: 1948 Potassium measurement Potassium Level [facility] Start: 1948 Pulmonary Function Testing Pulmonary Function Testing [facility] Start: 1948 Screening for malignant neoplasm of colon [facility] Patient referral [facility] Work Phone: End: 04-29-2023 [facility] Service Area Work Phone: Comment on above: Once for 1 Occurrences starting 04/29/20 until 04/29/2023 Problems Active Problems Problem Classification Problem Date Documented Date Episodic/Chronic Acquired foot deformities (16 sources) Acquired hallux valgus; Translations: [Hallux valgus (acquired), unspecified foot] Onset: 1 05-18-2023 Chronic Acute and unspecified renal failure (1 source) Acute kidney failure, unspecified; Translations: [ACUTE KIDNEY FAILURE UNSPECIFIED] Onset: 3 Episodic Allergic reactions (1 source) Allergy status to other drugs, medicaments and biological substances status; Translations: [ALLERGY STATUS OTH RX MED AND BIO SUBST] Onset: 3 Episodic Anxiety disorders (20 sources) Panic attack; Translations: [Anxiety disorder, unspecified] Onset: 8 11-07-2019 Chronic Cardiac dysrhythmias (20 sources) Unspecified atrial fibrillation; Translations: [Paroxysmal atrial fibrillation] Onset: 2 Chronic Chronic kidney disease (20 sources) Chronic kidney disease; Translations: [Chronic kidney disease, unspecified] Onset: 2 03-30-2023 Chronic Chronic kidney disease (3 sources) Chronic kidney disease; Translations: [CHRONIC KIDNEY DISEASE STAGE 3B] Onset: 2 Chronic obstructive pulmonary disease and bronchiectasis (20 sources) Chronic obstructive pulmonary disease with (acute) lower respiratory infection; Translations: [Chronic obstructive pulmonary disease with (acute) exacerbation] Onset: 8 Chronic Congestive heart failure; nonhypertensive (20 sources) Acute on chronic combined systolic (congestive) and diastolic (congestive) heart failure; Translations: [Chronic diastolic (congestive) heart failure] Onset: 8 Chronic Deficiency and other anemia (1 source) Anemia of renal disease; Translations: [Anemia in chronic kidney disease] Chronic Deficiency and other anemia (2 sources) Anemia in chronic kidney disease; Translations: [ANEMIA IN CHRONIC KIDNEY DISEASE] Onset: 2 Chronic Deficiency and other anemia (1 source) Anemia, unspecified; Translations: [ANEMIA UNSPECIFIED] Onset: 3 Episodic Diabetes mellitus with complications (20 sources) Disorder of kidney due to diabetes mellitus; Translations: [Type 2 diabetes mellitus with diabetic chronic kidney disease] Onset: 6 Chronic Diabetes mellitus without complication (20 sources) Type 2 diabetes mellitus without complications; Translations: [Diabetes mellitus] Onset: 8 11-07-2019 Chronic Disorders of lipid metabolism (20 sources) Pure hypercholesterolemia, unspecified; Translations: [Mixed hyperlipidemia] Onset: 8 03-30-2023 Chronic Disorders of teeth and jaw (3 sources) Edentulous; Translations: [Complete loss of teeth, unspecified cause, unspecified class] Onset: 4 08-18-2023 Chronic Diverticulosis and diverticulitis (1 source) Diverticulosis of large intestine without perforation or abscess without bleeding; Translations: [DVRTCLOS OF LG INT W/O PERFORATION OR ABSCESS W/O BLEEDING] Onset: 8 Chronic Epilepsy; convulsions (16 sources) Epilepsy; Translations: [Epilepsy, unspecified, not intractable, without status epilepticus] Onset: 3 05-18-2023 Chronic Esophageal disorders (20 sources) Haddad's esophagus; Translations: [Haddad's esophagus without dysplasia] Onset: 8 Chronic Essential hypertension (20 sources) Essential (primary) hypertension; Translations: [Essential hypertension] Onset: 8 Chronic Genitourinary symptoms and ill-defined conditions (17 sources) Incontinence without sensory awareness; Translations: [Incontinence without sensory awareness] Onset: 4 02-03-2023 Chronic Heart valve disorders (20 sources) Nonrheumatic aortic (valve) stenosis; Translations: [Rheumatic tricuspid insufficiency] Onset: 2 11-19-2022 Chronic Hepatitis (16 sources) Nonalcoholic steatohepatitis; Translations: [Nonalcoholic steatohepatitis (RASMUSSEN)] Onset: 3 05-18-2023 Chronic Hypertension with complications and secondary hypertension (20 sources) Chronic kidney disease due to hypertension; Translations: [Hypertensive chronic kidney disease with stage 1 through stage 4 chronic kidney disease, or unspecified chronic kidney disease] Onset: 2 Chronic Lymphadenitis (1 source) Localized enlarged lymph nodes; Translations: [LOCALIZED ENLARGED LYMPH NODES] Onset: 8 Episodic Medical examination/evaluatio n (1 source) Encounter for other preprocedural examination; Translations: [ENCOUNTER FOR OTHER PREPROCEDURAL EXAMINATION] Onset: 8 Episodic Menopausal disorders (16 sources) Decreased estrogen level; Translations: [Other primary ovarian failure] Onset: 0 05-18-2023 Chronic Mood disorders (20 sources) Depressive disorder; Translations: [Major depressive disorder, single episode, unspecified] Onset: 8 11-07-2019 Chronic Nutritional deficiencies (17 sources) Moderate protein-calorie malnutrition; Translations: [Deficiency of macronutrients] Onset: 3 05-18-2023 Chronic Osteoarthritis (20 sources) Arthritis; Translations: [Unspecified osteoarthritis, unspecified site] Onset: 5 11-07-2019 Chronic Osteoporosis (16 sources) Osteoporosis; Translations: [Age-related osteoporosis without current pathological fracture] Onset: 7 05-18-2023 Chronic Other aftercare (2 sources) Other superintendent [employer] (current) drug therapy; Translations: [OTHER EGG CASER (CURRENT) DRUG THERAPY] Onset: 8 Episodic Other aftercare (1 source) [employer] (current) use of anticoagulants; Translations: [EGG CASER CURRNT USE ANTICOAGULANTS] Onset: 3 Episodic Other aftercare (1 source) [employer] (current) use of inhaled steroids; Translations: [EGG CASER USE OF INHALED STEROIDS] Onset: 3 Episodic Other aftercare (2 sources) [employer] (current) use of insulin; Translations: [[facility] CURRENT USE OF INSULIN] Onset: 3 Episodic Other and ill-defined heart disease (13 sources) Heart disease 05-11-2021 Chronic Other circulatory disease (1 source) Low blood pressure; Translations: [Hypotension, unspecified] Episodic Other diseases of kidney and ureters (20 sources) Renal mass; Translations: [Other specified disorders of kidney and ureter] Onset: 4 06-10-2022 Chronic Other diseases of kidney and [...] Episodic Other diseases of kidney and ureters (6 sources) Acquired renal cyst without neoplastic change; Translations: [Cyst of kidney, acquired] Onset: 3 Episodic Other diseases of kidney and ureters (9 sources) Cyst of kidney 06-10-2022 Episodic Other ear and sense organ disorders (16 sources) Bilateral hearing loss; Translations: [Unspecified hearing loss, bilateral] Onset: 3 05-18-2023 Chronic Other ear and sense organ disorders (16 sources) Sensorineural hearing loss, bilateral; Translations: [Sensorineural hearing loss, bilateral] Onset: 3 05-18-2023 Chronic Other endocrine disorders (6 sources) Other specified disorders of adrenal gland; Translations: [OTHER SPECIFIED DISORDERS OF ADRENAL GLAND] Onset: 8 Chronic Other endocrine disorders (6 sources) Disorder of adrenal gland; Translations: [Other specified disorders of adrenal gland] Onset: 3 Chronic Other endocrine disorders (16 sources) Adrenal mass; Translations: [Other specified disorders of adrenal gland] Onset: 1 05-18-2023 Chronic Other gastrointestinal disorders (1 source) Irritable bowel syndrome without diarrhea; Translations: [IRRITABLE BOWEL SYND W/O DIARRHEA] Onset: 2 Chronic Other gastrointestinal disorders (1 source) Irritable bowel syndrome with diarrhea; Translations: [IRRITABLE BOWEL SYND W/DIARRHEA] Onset: 3 Chronic Other gastrointestinal disorders (1 source) Abnormal feces; Translations: [Other fecal abnormalities] Onset: 2 Episodic Other gastrointestinal disorders (1 source) Diarrhea; Translations: [Diarrhea, unspecified] Onset: 2 Episodic Other gastrointestinal disorders (9 sources) Adrenal mass 06-10-2022 Episodic Other hereditary and degenerative nervous system conditions (1 source) Restless legs syndrome; Translations: [RESTLESS LEGS SYNDROME] Onset: 3 Chronic Other inflammatory condition of skin (20 sources) Psoriatic arthritis; Translations: [Arthropathic psoriasis, unspecified] Onset: 2 11-07-2019 Chronic Other inflammatory condition of skin (16 sources) Psoriasis; Translations: [Psoriasis, unspecified] Onset: 9 05-18-2023 Chronic Other liver diseases (14 sources) Steatosis of liver; Translations: [Fatty (change of) liver, not elsewhere classified] Onset: 2 Chronic Other nervous system disorders (16 sources) Chronic pain; Translations: [Other chronic pain] Onset: 8 05-18-2023 Chronic Other nervous system disorders (1 source) Unspecified abnormalities of gait and mobility; Translations: [Unspecified abnormalities of gait and mobility] Onset: 3 Episodic Other nutritional; endocrine; and metabolic disorders (20 sources) Morbid obesity; Translations: [Morbid (severe) obesity due to excess calories] Onset: 2 08-20-2014 Chronic Other nutritional; endocrine; and metabolic [...] Chronic Other nutritional; endocrine; and metabolic disorders (20 sources) Body mass index 30+ - obesity; Translations: [Body mass index (BMI) 31.0-31.9, adult] Onset: 3 Resolved: 4 03-30-2023 Chronic Other nutritional; endocrine; and metabolic disorders (3 sources) Overweight in adulthood with body mass index of 25 or more but less than 30; Translations: [Overweight] Onset: 4 07-26-2023 Episodic Peripheral and visceral atherosclerosis (1 source) Atherosclerosis of aorta; Translations: [ATHEROSCLEROSIS OF AORTA] Onset: 8 Chronic Pneumonia (except that caused by tuberculosis or sexually transmitted disease) (2 sources) Pneumonia, unspecified organism; Translations: [PNEUMONIA UNSPECIFIED ORGANISM] Onset: 2 Episodic Pulmonary heart disease (20 sources) Pulmonary hypertension, unspecified; Translations: [Pulmonary hypertension] Onset: 3 Chronic Residual codes; unclassified (1 source) Sleep apnea, unspecified; Translations: [SLEEP APNEA UNSPECIFIED] Onset: 3 Chronic Residual codes; unclassified (4 sources) Obstructive sleep apnea (adult) (pediatric); Translations: [OBSTRUCTIVE SLEEP APNEA] Onset: 2 Chronic Residual codes; unclassified (16 sources) Obstructive sleep apnea syndrome; Translations: [Obstructive sleep apnea (adult) (pediatric)] Onset: 8 05-18-2023 Chronic Residual codes; unclassified (1 source) Acquired [...] 3 Episodic Respiratory failure; insufficiency; arrest (adult) (19 sources) Dependence on supplemental oxygen; Translations: [Acute and chronic respiratory failure with hypoxia] Onset: 2 05-18-2023 Chronic Substance-related disorders (20 sources) Nicotine dependence, cigarettes, uncomplicated; Translations: [Smoker] Onset: 0 03-30-2023 Chronic Comment on above: 1/2 ppd; Syncope (3 sources) Syncope and collapse; Translations: [SYNCOPE AND COLLAPSE] Onset: 3 Episodic Unclassified (2 sources) Acquired absence of other specified parts of digestive tract; Translations: [ACQUIRED ABSENCE OF OTHER SPECIFIED PARTS OF DIGESTIVE TRACT] Onset: 8 Episodic Unclassified (9 sources) Asymptomatic microscopic hematuria 06-10-2022 Unclassified (1 source) PERSONAL HISTORY OF COVID-19; Translations: [PERSONAL HISTORY OF COVID-19] Onset: 3 Unclassified (1 source) Chronic atrial fibrillation, unspecified; Translations: [CHRONIC ATRIAL FIBRILLATION UNSPEC] Onset: 3 Unclassified (1 source) CHRN KIDNEY DISEASE STG 3 UNSP; Translations: [CHRN KIDNEY DISEASE STG 3 UNSP] Onset: 3 Unclassified (1 source) EGG CASER INJECT NONINSULN ANTIDIAB; Translations: [EGG CASER INJECT NONINSULN ANTIDIAB] Onset: 3 Unclassified (1 source) CONTACT W/AND (SUSP) EXPOS COVID-19; Translations: [CONTACT W/AND (SUSP) EXPOS COVID-19] Onset: 3 Unclassified (1 source) COUGH, UNSPECIFIED; Translations: [COUGH, UNSPECIFIED] Onset: 2 Viral infection (1 source) COVID-19; Translations: [COVID-19] Onset: 2 Past or Other Problems Problem Classification Problem Date Documented Date Episodic/Chronic Abdominal hernia (20 sources) Incisional hernia without obstruction or gangrene; Translations: [Incisional hernia] Onset: 018 05-18-2023 Episodic Abdominal pain (20 sources) Lower abdominal pain; Translations: [Lower abdominal pain, unspecified] Onset: Episodic Acquired foot deformities (14 sources) Foot drop, right foot; Translations: [Right foot drop] Onset: 05-18-2023 Episodic Acute posthemorrhagic anemia (13 sources) Acute posthemorrhagic anemia; Translations: [Acute posthemorrhagic anemia] Onset: 05-18-2023 Episodic Bacterial infection; unspecified site (1 source) Other specified bacterial agents as the cause of diseases classified elsewhere; Translations: [OTH SPEC BACTERIAL DZ CLASS ELSW] Onset: Episodic Deficiency and other anemia (5 sources) Iron deficiency anemia, unspecified; Translations: [IRON DEFICIENCY ANEMIA UNSPECIFIED] Onset: Episodic E Codes: Fall (13 sources) Fall; Translations: [Unspecified fall, initial encounter] Onset: 05-18-2023 Episodic Epilepsy; convulsions (20 sources) Unspecified convulsions; Translations: [Seizure] Onset: Episodic Fever of unknown origin (4 sources) Fever, unspecified; Translations: [FEVER UNSPECIFIED] Onset: Episodic Fluid and electrolyte disorders (2 sources) Hyperosmolality and hypernatremia; Translations: [Hypokalemia] Onset: Episodic Fracture of neck of femur (hip) (20 sources) Closed intertrochanteric fracture; Translations: [Displaced intertrochanteric fracture of right femur, initial encounter for closed fracture] Onset: 05-18-2023 Episodic Genitourinary symptoms and ill-defined conditions (20 sources) Retention of urine; Translations: [Retention of urine, unspecified] Onset: Episodic Heart valve disorders (16 sources) Systolic murmur; Translations: [Cardiac murmur, unspecified] Onset: 05-18-2023 Episodic Hemorrhoids (16 sources) External hemorrhoids; Translations: [Residual hemorrhoidal skin tags] Onset: 05-18-2023 Episodic Intestinal infection (14 sources) Enterocolitis due to Clostridium difficile, not specified as recurrent; Translations: [Clostridium difficile colitis] Onset: 05-14-2023 Episodic Joint disorders and dislocations; trauma-related (13 sources) Dislocation of temporomandibular joint; Translations: [Dislocation of jaw, unspecified side, initial encounter] Onset: 024 05-18-2023 Episodic Malaise and fatigue (3 sources) Other fatigue; Translations: [Weakness] Onset: Episodic Mood disorders (4 sources) Mood disorders; Translations: [DEPRESSION UNSPECIFIED] Onset: 04-23-2023 Other aftercare (1 source) superintendent [employer] (current) use of aspirin; Translations: [EGG CASER CURRENT USE OF ASPIRIN] Onset: Episodic Other aftercare (20 sources) Drug therapy finding; Translations: [Long-term (current) use of anticoagulants] Onset: 03-30-2023 Episodic Other and unspecified benign neoplasm (20 sources) History of polyp of colon; Translations: [Personal history of colonic polyps] Onset: Episodic Other and unspecified benign neoplasm (20 sources) Polyp of colon; Translations: [Polyp of colon] Onset: 02-27-2020 Episodic Other connective tissue disease (20 sources) Spasm; Translations: [Other muscle spasm] Onset: 11-07-2019 Episodic Other connective tissue disease (16 sources) Adhesive capsulitis of left shoulder; Translations: [Adhesive capsulitis of left shoulder] Onset: 05-18-2023 Episodic Other diseases of veins and lymphatics (16 sources) Peripheral venous insufficiency; Translations: [Venous insufficiency (chronic) (peripheral)] Onset: 05-18-2023 Episodic Other disorders of stomach and duodenum (20 sources) Gastroparesis syndrome; Translations: [Gastroparesis] Onset: 01-25-2020 Episodic Other ear and sense organ disorders (16 sources) Bilateral tinnitus; Translations: [Tinnitus, bilateral] Onset: 05-18-2023 Episodic Other eye disorders (1 source) Other specified disorders of eye and adnexa Onset: Resolve d: Episodic Other gastrointestinal disorders (20 sources) Dysphagia; Translations: [Dysphagia, unspecified] Onset: Episodic Other gastrointestinal disorders (20 sources) Chronic constipation with overflow; Translations: [Other constipation] Onset: 10-17-2020 Episodic Other gastrointestinal disorders (20 sources) Constipation; Translations: [Constipation, unspecified] Onset: 02-27-2020 Episodic Other gastrointestinal disorders (20 sources) Heartburn; Translations: [Heartburn] Onset: 01-25-2020 Episodic Other gastrointestinal disorders (20 sources) Loose stool; Translations: [Other fecal abnormalities] Onset: 12-31-2021 Episodic Other hematologic conditions (1 source) Other specified abnormalities of plasma proteins; Translations: [OTH SPEC ABNORM PLASMA PROTEINS] Onset: Episodic Other injuries and conditions due to external causes (13 sources) H/O: fracture; Translations: [Personal history of (healed) traumatic fracture] Onset: 05-14-2023 Episodic Other lower respiratory disease (1 source) Dyspnea, unspecified; Translations: [DYSPNEA UNSPECIFIED] Onset: Episodic Other lower respiratory disease (1 source) Hypoxemia; Translations: [HYPOXEMIA] Onset: Episodic Other lower respiratory disease (3 sources) Shortness of breath; Translations: [SHORTNESS OF BREATH] Onset: Episodic Other lower respiratory disease (13 sources) Cough; Translations: [Cough] Onset: 05-18-2023 Episodic Other lower respiratory disease (3 sources) Chronic cough; Translations: [Chronic cough] Onset: 11-10-2022 Episodic Other nervous system disorders (13 sources) Acute pain due to injury; Translations: [Acute pain due to trauma] Onset: 05-18-2023 Episodic Other nervous system disorders (13 sources) Acute postoperative pain; Translations: [Other acute postprocedural pain] Onset: 05-18-2023 Episodic Other nervous system disorders (13 sources) Abnormal gait; Translations: [Unspecified abnormalities of gait and mobility] Onset: 05-18-2023 Episodic Other screening for suspected conditions (not mental disorders or infectious disease) (20 sources) Echocardiogram abnormal; Translations: [Nonspecific (abnormal) findings on radiological and other examination of other intrathoracic organs] Onset: 03-30-2023 Episodic Other upper respiratory disease (1 source) Nasal congestion; Translations: [NASAL CONGESTION] Onset: Episodic Other upper respiratory infections (16 sources) Acute sinusitis; Translations: [Acute sinusitis, unspecified] Onset: 05-18-2023 Episodic Screening and history of mental health and substance abuse codes (1 source) Personal history of nicotine dependence; Translations: [PERSONAL HISTORY OF NICOTINE DEPEND] Onset: Episodic Skull and face fractures (13 sources) Fracture of mandible; Translations: [Fracture of mandible, unspecified, initial encounter for closed fracture] Onset: 05-18-2023 Episodic Unclassified (2 sources) Unknown / UNK(Unknown) Onset: Unclassified (11 sources) Esophagogastroduodenoscopy gastric outlet reduction Onset: 02-16-2022 Unclassified (1 source) Exposure to 2019 novel coronavirus; Translations: [Contact with and (suspected) exposure to COVID19] Unclassified (4 sources) Onset: Resolve d: 03-30-2023 Urinary tract infections (20 sources) Acute cystitis; Translations: [Postinfective urethral stricture of female] Onset: 06-10-2022 Episodic Procedures Date Procedure Procedure Detail Performing Clinician Start: 09-08-2023 End: 09-08-2023 Radex hip unilateral with pelvis 2-3 views Kayden Lee PA-C Work Phone: Start: 08-18-2023 panoramic radiographic image Emma Robb DDS Work Phone: Start: 06-16-2023 ALL BASIC METABOLIC PANEL Austin Rivas MD Work Phone: Start: 06-14-2023 ALL BASIC METABOLIC PANEL Austin Rivas MD Work Phone: Start: 06-11-2023 ALL HGB HCT Jose novak [employer] ST[employer]ER Work Phone: Start: 06-09-2023 End: 06-09-2023 Radex hip unilateral with pelvis 2-3 views Kayden WELLSC Work Phone: Start: 04-29-2023 Echo tthrc r-t 2d w/ wom-mode compl spec&colr d Annika Kaba [employer]USTRIAL TRAINER Work Phone: Start: 04-13-2023 Mammography Doreen 2 Start: 02-22-2023 Transurethral cystoscopy Jacqui Lue Start: 11-21-2022 Plain chest X-ray II Da noni Barber Work Phone: Start: 11-18-2022 Plain chest X-ray II Da noni Barber Work Phone: Start: 09-22-2022 Follow-up visit Follow-up [facility] Start: 09-07-2022 Transfusion of Nonau tologous Red Blood Cells into Peripheral Vein, Percutaneous Approach DR MAHAMED RM Start: 02-16-2022 Colonoscopy Colonoscopy Kylah Perez Start: 12-02-2020 Cystoscopy Jacqui Lue Start: 05-30-2020 Mammography Annika Johnnie lyle [employer] TRA[employer] Work Phone: Start: 05-03-2020 Colonoscopic polypectomy Shawn Barber Work Phone: Start: 02-02-2020 Colonoscopy Jose Conti [employer] Work Phone: Cholecystectomy Lani conklin Colonoscopy Lani Wasserman Extraction of wisdom tooth Mine Barber Work Phone: H/O: hysterectomy Lani muroz Hernia repair Shawn Barber Work Phone: History of hernia repair Bet dariela Lisy Hysterectomy Shawn Barber Work Phone: Repair of hip Shaye Pittman Small intestine excision Juan Manuel Barber Work Phone: Results Test Name Value Interpretation Reference Range Facility Patient Education 09-09-19 Patient Education Obstetrics and Gynec ology Urinary Tract Infection, Adult A urinary tract [...] this condition includes: ? Antibiotic medicine. ? Cmdo-ekp-dorfcro medicines to treat discomfort. ? Drinking enough [...] these instructions at home: Medicines ? Take tkle-bqv-dxliteh and prescription medicines only as told by [...] Document Revie (more content not included)... Normal [place] Urology Office/Clinic Noteon 09-09-2023 Urology Office/Clinic Note Chief Complaint f/u HPI Staff F/U for recurrent UTI Dx: Recurrent UTI, Pneumaturia, Adrenal mass, Urinary retention, Renal cyst, Urgency of urination Estrace 0.1mg/g cream, Myrbetriq 50mg Dysuria: denies Incomplete bladder emptying: sometimes Hematuria: denies Frequency: yes Urgency: yes Nocturia: 1x a night Stream: stop and go Leaking: malika Post void dripping: yes Wearing pads/ Depends: wears depends Urge incontinence: yes Stress incontinence: yes Incontinence without Sensory Awareness: denies Abdominal pain: denies Flank pain: denies Sexual complaints: _ History of Present Illness I have reviewed and verified the staff HPI to be accurate for this encounter. Portions of this record may have been created with voice recognition artificial intelligence software, specifically [facility], [employer] and or [employer]. Substitutions may have occurred due to the inherent limitations of voice recognition and artificial intelligence software. Review of Systems PHQ Score Initial Depression Screen Score: 0 SCORE Physical Exam Vitals & Measurements T: 36.7 ?C(Temporal Artery) HR: 78(Peripheral) RR: 16 BP: 125/62 HT: 60 in HT: 153 cm WT: 61.2 kg WT: 134.64 lb BMI: 26.14 General: Well developed, well nourished, in no acute distress. Genitourinary: Flank Pain: none. Bladder: nonpalpable. Assessment/Plan 1. Recurrent UTI (N39.0: Urinary tract infection, site not specified) +C&S: 12/19/22 >100k Klebsiella pneumoniae ( obtained [...] Hx Cdiff with prolonged antibiotics of 2 weeks [1] Patient continues to take pogi-nrv-hbturcv preventative supplements-cranberry, probiotics. She is using vaginal Estrace cream 2 times per week and tolerating well without side effects. Reiterated importance of proper hygiene and wiping, avoiding scented soap and changing pads frequently during episodes of incontinence. Patient has not had any urinary infections since prior office visit in April. No urinalysis in office today due to patient missing hat. She denies symptoms of infection at this time. -Continue cranberry and probiotics, Estrace cream. -Contact office with future urinary symptoms. 2. Urgency of urination (R39.15: Urgency of urination) BBSQ 16 (16) At prior office visit, patient inquired about starting medication to help with her urinary symptoms. Myrbetriq 50 mg ER was sent to pharmacy at that time. However, patient never started medication as geriatric trick specialist was concerned about her polypharmacy. Today she notes that her urinary symptoms really are not that bothersome to her. She uses timed voiding, but states she often goes back into the bathroom minutes later and empties more. We did discuss voiding maneuvers and double voiding techniques, which patient states she will try. - Follow-up 6 months with [facility] per patient preference 3. Pneumaturia (R39.89: Other symptoms and signs involving [...] Cdiff with prolonged antibiotics of 2 weeks. [2] Patient denies any air with voiding since prior office visit, continue to monitor symptoms. 4. Urinary retention (R33.9: Retention of urine, unspecified) Patient with history of urinary retention PVR today 37 mL Continue timed voids, discussed voiding maneuvers. 5. Renal cyst (N28.1: Cyst of kidney, [...] Crea 1.49, eGFR 34. 11/24/22: Crea 1.83, e (more content not included)... Normal [facility] Comment on above: Result Comment: Elec tronically Signed By: NICOLA Pittman APRN, Shaye Pires\.br\Date and Time Signed: 09/09/23 10:34 EDT No Panel Informationon 09-07 Radiology Study observation (narrative) [facility] No Panel InformationOrdered By: Fabian Ayala on 09-08-2023 [employer] Work Phone: Patient Instructionson 09-07 Food And Beverage Manager Authentication Interface Message Text You are doing excellent. Return to see me at 1 year from surgery Normal [facility] Progress Noteson 09-08-2023 Food And Beverage Manager Authentication Interface Message Text Patient seen examined. She is doing quite well. Ambulating with a walker. He is getting fitted for an AFO for her chronic footdrop. He is working towards a cane when she gets the AFO. On exam incisions well healed without signs of infection. No pain with range of motion of the hip. Radiographically AP pelvis well as AP and lateral radiographs the patient's right hip and femur display maintained position the patient's proximal femur fracture with intact implants. The fracture appears united and all cortices. Discussed with the patient and her family that she is doing quite well. Recommend she follow up at 1 year from surgery. She was certainly welcome to return sooner if having any difficulties. All of her questions were answered. Normal [facility] XR FEMUR RIGHT MINIMUM 2 VIE WSon 09-08-2023 XR FEMUR RIGHT MINIMUM 2 VIEWS EXAMINATION: XR FEMUR RIGHT MINIMUM 2 VIEWSPRO/RT 09/08/2023 12:32 PM CLINICAL HISTORY: fu ASSOCIATED DIAGNOSIS: Closed displaced intertrochanteric fracture of right femur, initial encounter ([facility]) ORDERING PROVIDER: KAYDEN SMALLS NOTE: COMPARISON: XR FEMUR RIGHT MINIMUM 2 VIEWS 07/07/2023, 12:52 PM IMPRESSION: Comparison with the previous studies shows no change in position or alignment of the previously described right femur fracture. There is slight maturation of callus formation consistent with progression in healing. Hardware is intact without signs of loosening. Right femur MACRO: None Normal [facility] XR Femur - right 2 Viewson 0 09-08-2023 EXAMINATION: XR FEMU R RIGHT MINIMUM 2 VIEWSPRO/RT 09/08/2023 12:32 PM CLINICAL HISTORY: fu ASSOCIATED DIAGNOSIS: Closed displaced intertrochanteric fracture of right femur, initial encounter ([facility]) ORDERING PROVIDER: KAYDEN SMALLS NOTE: COMPARISON: XR FEMUR RIGHT MINIMUM 2 VIEWS 07/07/2023, 12:52 PM IMPRESSION: Comparison with the previous studies shows no change in position or alignment of the previously described right femur fracture. There is slight maturation of callus formation consistent with progression in healing. Hardware is intact without signs of loosening. Right femur MACRO: None RADIOLOGY Fabian Ayala MD - 09/08/2023 EXAMINATION: XR FEMUR RIGHT MINIMUM 2 VIEWSPRO/RT 09/08/2023 12:32 PM CLINICAL HISTORY: fu ASSOCIATED DIAGNOSIS: Closed displaced intertrochanteric fracture of right femur, initial encounter ([facility]) ORDERING PROVIDER: KAYDEN LEE TECHNEARLE NOTE: COMPARISON: XR FEMUR RIGHT MINIMUM 2 VIEWS 07/07/2023, 12:52 PM IMPRESSION: Comparison with the previous studies shows no change in position or alignment of the previously described right femur fracture. There is slight maturation of callus formation consistent with progression in healing. Hardware is intact without signs of loosening. Right femur MACRO: None [facility] XR HIP RIGHT W/ PELVIS MIN 2 -3 VIEWSon 09-08-2023 XR HIP RIGHT W/ PELVIS MIN 2-3 VIEWS EXAMINATION: XR HIP RIGHT W/ PELVIS MIN 2-3 VIEWSPRO/RT 09/08/2023 12:32 PM CLINICAL HISTORY: fu or pain ASSOCIATED DIAGNOSIS: Closed displaced intertrochanteric fracture of right femur, initial encounter ([facility]) ORDERING PROVIDER: KAYDEN LEE TECHNOLOGISTS NOTE: COMPARISON: XR PELVIS SINGLE VIEW 07/07/2023, 12:51 PM FINDINGS: The bones are osteopenic. Comparison with the previous studies shows no change in position or alignment of the previously described fracture. There is slight maturation of callus formation consistent with progression in healing. Hardware is intact without signs of loosening. There are degenerative changes of the lower lumbar spine, partially imaged. IMPRESSION: Progression of healing without change in position or alignment of the previously described fracture. Right hip MACRO: None Normal [facility] XR Pelvis and Hip - right Vi ewson 09-08-2023 EXAMINATION: XR HIP RIGHT W/ PELVIS MIN 2-3 VIEWSPRO/RT 09/08/2023 12:32 PM CLINICAL HISTORY: fu or pain ASSOCIATED DIAGNOSIS: Closed displaced intertrochanteric fracture of right femur, initial encounter ([facility]) ORDERING PROVIDER: KAYDEN LEE TECHNEARLE NOTE: COMPARISON: XR PELVIS SINGLE VIEW 07/07/2023, 12:51 PM FINDINGS: The bones are osteopenic. Comparison with the previous studies shows no change in position or alignment of the previously described fracture. There is slight maturation of callus formation consistent with progression in healing. Hardware is intact without signs of loosening. There are degenerative changes of the lower lumbar spine, partially imaged. IMPRESSION: Progression of healing without change in position or alignment of the previously described fracture. Right hip MACRO: None RADIOLOGY Fabian Ayala MD - 09/08/2023 EXAMINATION: XR HIP RIGHT W/ PELVIS MIN 2-3 VIEWSPRO/RT 09/08/2023 12:32 PM CLINICAL HISTORY: fu or pain ASSOCIATED DIAGNOSIS: Closed displaced intertrochanteric fracture of right femur, initial encounter ([facility]) ORDERING PROVIDER: KAYDEN LEE TECHNEARLE NOTE: COMPARISON: XR PELVIS SINGLE VIEW 07/07/2023, 12:51 PM FINDINGS: The bones are osteopenic. Comparison with the previous studies shows no change in position or alignment of the previously described fracture. There is slight maturation of callus formation consistent with progression in healing. Hardware is intact without signs of loosening. There are degenerative changes of the lower lumbar spine, partially imaged. IMPRESSION: Progression of healing without change in position or alignment of the previously described fracture. Right hip MACRO: None [facility] Ambulatory Visit Summaryon 0 09-07-2023 Ambulatory Visit Summary KATE HAGEN :1950 Visit Date:09/07/2023 Ambulatory Visit Instructions Your Diagnosis Recurrent UTI Pneumaturia Adrenal mass Urinary retention Renal cyst Urgency of urination Your Care Team Attending Physician - NICOLA Pittman APRN, Shaye Pires Primary Care Physician - SHAWN BARBER MD This Is Your Medications List Contact prescribing physician if questions or concerns acetaminophen-hydrocodone (acetaminophen-hydrocodon e 325 mg-5 mg oral tablet) albuterol (Ventolin [...] 10 mg oral tablet) dulaglutide (Trulicity Pen) estradiol topical (Estrace 0.1 mg/g Cream) fluoxetine fluticasone-salmeterol (Advair 250 mcg-50 mcg Powder) insulin isophane-insulin regular (Novolin 70/30 10 mL Susp-Inj) levetiracetam (Keppra) magnesium oxide (magnesium oxide 400 mg Tab) metolazone (metolazone 2.5 mg Tab) metoprolol (Metoprolol tartrate 50 mg Tab) mirabegron (Myrbetriq 50 mg oral tablet, extended release) omega-3 polyunsaturated fatty acids (Fish Oil) omeprazole (omeprazole 40 mg Cap-DR) ondansetron (ondansetron 4 mg Tab) potassium chloride (Klor-Con M20) tizanidine (tizanidine 4 mg oral capsule) Procedures Performed Cystoscopy (02/22/2023), Cystoscopy (12/02/2020), Cholecystectomy, Colonoscopy, History of hernia repair, History of hysterectomy., Repair of hip. Discharge Vitals Temperature (Temporal Artery) 36.7 ?C Heart Rate (Peripheral) 78 Respiratory Rate 16 Blood Pressure 125/62 Height 153 cm Height 60 in Weight 61.2 kg Weight 134.64 lb BMI 26.14 What to do next Scheduled Follow-Up Appointments Wednesday 10:45 AM EST With: Jacqui Michael MD Where: [facility] Progress Noteson 08-23-2023 Food And Beverage Manager Authentication Interface Message Text Teaching Physician Note: I saw and evaluated the patient. I personally obtained the kim and critical portions of the history and physical exam. I reviewed the resident's documentation and discussed the patient with the resident. I agree with the resident's medical decision making as documented in the resident's note. Left condylar head fracture shows no change in position on panoramic imaging today. Occlusion is stable with dentures, and KEN is 40mm without pain. No operative intervention required given appropriate judaism of function. Follow up with dentistry for denture adjustment. Meng Leos DMD, MD Normal [facility] Progress Noteson 08-19-2023 Food And Beverage Manager Authentication Interface Message Text [facility] FOLLOW UP VISIT Chief Complaint: Pt presents for follow up. History of present illness: 72 yrs old White female 14 weeks s/p Fracture of left side of mandible and TMJ (dislocation of temporomandibular joint). Patient's chief complaint: aphthous ulcer on left side of mandibular ridge (lingually) causing difficulty in using dentures and chewing. Review of Systems: no change Physical findings: aphthous ulcer on left side of mandibular ridge (lingually) No purulence or erythema noted No signs or symptoms of infection Maximum interincisal opening is 30mm No V3 hypoesthesia Neurosensory testing reveals: appropriate reaction Occlusion stable and reproducible Patient reports pain in left TMJ from time to time, but pin is tolerable and sporadic. Panoramic xray taken and visible left condylar head fracture. Procedure: Due to lack of acrylic bur and instruments to correct denture in our [facility] clinic, no denture adjustments were made today. Patient is properly healing. Assessment / Diagnosis: Edentulous [[id number]] Normal post operative course Normal postoperative course. Healing as expected. Dr. Meng Leos clinically assessed and spoke with the patient. Plan: Recommended to patient to present to general dentistry clinic for denture adjustment in the region of aphthous ulcer (due to slight mandibular shift), although occlusion is correct. Furthermore, it would be beneficial to have new dentures fabricated due to change in mandibular position. Referral for general dentistry was placed for patient and instruction were given. Patient instructed to follow up if new or worsening symptoms appear. Emma Zamudio DDS Normal [facility] Progress Noteson 08-18-2023 Food And Beverage Manager Authentication Interface Message Text Normal [facility] BASIC METABOLIC PANLon 08-10 Anion gap [Moles/Vol] 15 mmol/L Normal 5-15 [facility] Comment on above: Performed By: #### B MP #### [facility] ([id number]) [address], [address] [place] [address] Calcium [Mass/Vol] 7.4 mg/dL Low 8.5-10.5 [facility] Comment on above: Performed By: #### B MP #### [facility] ([id number]) [address], [address] [place] [address] Chloride [Moles/Vol] 100 mmol/L Normal 98-109 [facility] Comment on above: Performed By: #### B MP #### [facility] ([id number]) [address], [address] [place] [address] CO2 [Moles/Vol] 29 mmol/L Normal 22-32 [facility] Comment on above: Performed By: #### B MP #### [facility] ([id number]) [address], [address] [place] [address] Creatinine [Mass/Vol] 3.89 mg/dL High 0.40-1.00 [facility] Comment on above: Result Comment: METH OD TRACEABLE TO IDMS STANDARD Performed By: #### B MP #### [facility] ([id number]) [address], [address] [place] [address] GFR/1.73 sq M.predicted among non-blacks MDRD (S/P/Bld) [Vol rate/Area] 12 mL/min/{1.73_m2} Low >59 [facility] Comment on above: Result Comment: Reported eGFR is based on the CKD-EPI 2020 equation that does not use a race coefficient. Performed By: #### B MP #### [facility] ([id number]) [address], [address] [place] [address] Glucose [Mass/Vol] 76 mg/dL Normal 65-99 [facility] Comment on above: Performed By: #### B MP #### [facility] ([id number]) [address] [place] [address] Potassium [Moles/Vol] 3.8 mmol/L Normal 3.5-5.0 [facility] Comment on above: Performed By: #### B MP #### [facility] ([id number]) [address], [address] [place] [address] Sodium [Moles/Vol] 144 mmol/L Normal 134-146 [facility] Comment on above: Performed By: #### B MP #### [facility] ([id number]) [address] [place] [address] Urea nitrogen [Mass/Vol] 95 mg/dL High 5-27 [facility] Comment on above: Performed By: #### B MP #### [facility] ([id number]) [address], [address] [place] [address] XR FEMUR RIGHT MINIMUM 2 VIE WSon 07-08-2023 XR FEMUR RIGHT MINIMUM 2 VIEWS EXAMINATION: XR FEMUR RIGHT MINIMUM 2 VIEWSPRO/RT 07/07/2023 12:51 PM CLINICAL HISTORY: fu ASSOCIATED DIAGNOSIS: Closed displaced intertrochanteric fracture of right femur, initial encounter ([facility]) ORDERING PROVIDER: KAYDEN SMALLS NOTE: COMPARISON: XR FEMUR RIGHT MINIMUM 2 VIEWS 06/09/2023, 8:34 AM IMPRESSION: Comparison with the previous studies shows no change in position or alignment of the previously described right femur fracture. There is slight maturation of callus formation consistent with progression in healing. Hardware is intact without signs of loosening. Right femur MACRO: None Normal [facility] XR PELVIS SINGLE VIEWon 03-0 XR PELVIS SINGLE VIEW EXAMINATION: XR PE LVIS SINGLE VIEW 07/07/2023 12:51 PM CLINICAL HISTORY: pain or f/u ASSOCIATED DIAGNOSIS: Closed displaced intertrochanteric fracture of right femur, initial encounter ([facility]) ORDERING PROVIDER: KAYDEN SMALLS NOTE: COMPARISON: XR HIP RIGHT W/ PELVIS MIN 2-3 VIEWS 06/09/2023, 8:34 AM FINDINGS: Large body habitus and bowel gas limits examination. Degenerative changes of the visualized lower lumbar spine are again noted with levoconvex scoliosis. Femoral heads are well-seated within the acetabula. Intertrochanteric right femur fracture post internal fixation appears grossly stable in orientation with mild increased bony callus formation. No new fracture or dislocation. IMPRESSION: Stable examination. MACRO: None Normal [facility] Patient Instructionson 07-06 Food And Beverage Manager Authentication Interface Message Text Your fracture remains well aligned. I expect that your knee pain is from a combination of pain from your hip joint as well as some muscular imbalance from your injury. Continue to work with physical therapy on this. Return to see me in 2 months. Normal [facility] Progress Noteson 07-07-2023 Food And Beverage Manager Authentication Interface Message Text Patient returns for follow-up I am now right femur. Doing well overall regarding the hip. He is having some knee discomfort anteriorly. This is present more so with prolonged ambulation. She has no tenderness to the knee no erythema. Incisions well healed. Radiographs of the femur display maintain alignment proximal femur there is some early healing noted. Maintain alignment present. Discussed with the patient and her daughter that I feel as though her knee discomfort is likely from some muscular imbalance from her quadriceps and hamstrings as well as likely some contribution from her hip with referred pain. There are no signs of infection or any and she has no joint line tenderness suggesting there is no inflammation within the knee joint itself. There are no fractures present in the distal femur or visible portion of the proximal tibia. Discussed continued physical therapy for this. Tylenol as needed for any discomfort in the knee. Will return to see me in 2 months. Normal [facility] ALL BASIC METABOLIC PANELon 06-16-2023 Anion gap [Moles/Vol] 11.3 mmol/L NO [facility] Calcium [Mass/Vol] 9.0 mg/dL 8.5 - 10. 1 mg/dL [facility] Chloride [Moles/Vol] 101 mmol/L 98 - 10 7 mmol/L [facility] CO2 [Moles/Vol] 33.9 mmol/L High 21.0 - 32.0 mmol/L [facility] Creatinine [Mass/Vol] 2.20 mg/dL High 0.55 - 1.02 mg/dL [facility] GFR/1.73 sq M.predicted CKD-EPI (S/P/Bld) [Vol rate/Area] 26 Low 60 - PINF [facility] Glucose [Mass/Vol] 104 mg/dL 74 - 106 mg/dL [facility] Interpretation and review of laboratory results Abnormal [facility] Potassium [Moles/Vol] 4.2 mmol/L 3.5 - 5.1 mmol/L [facility] Sodium [Moles/Vol] 142 mmol/L 136 - 145 mmol/L [facility] TBH EGFR-NON AF MALAWIAN 22 Low 60 - PINF [facility] Urea nitrogen [Mass/Vol] 55.0 mg/dL High 7.0 - 18.0 mg/dL [facility] Urea nitrogen/Creatinine [Mass ratio] 25.0 mg/mg [facility] Telephone Encounteron 2023 Food And Beverage Manager Authentication Interface Message Text What is the need: Medicare PHU SNF Review Situation: Patient approaching the 30 day readmission period Background: Attending Meng Whitaker MD Date of Admission 05/13/2023 Date of Discharge 05/18/2023 [facility] OF TRAUMA SURGERY FINAL DIAGNOSES: Hospital Problems as of 05/18/2023 * (Principal) H/O traumatic fracture Assessment: Reviewed careport patient remains in SNF 05/18/2023 7:35 PM [facility] (SNF) Recommendation: continue PHU SNF Review Program closed at this time Normal [facility] ALL BASIC METABOLIC PANELon 06-14-2023 Anion gap [Moles/Vol] 9.3 mmol/L [facility] Calcium [Mass/Vol] 9.1 mg/dL 8.5 - 10. 1 mg/dL [facility] Chloride [Moles/Vol] 98 mmol/L 98 - 10 7 mmol/L [facility] CO2 [Moles/Vol] 35.7 mmol/L High 21.0 - 32.0 mmol/L [facility] Creatinine [Mass/Vol] 2.27 mg/dL High 0.55 - 1.02 mg/dL [facility] GFR/1.73 sq M.predicted CKD-EPI (S/P/Bld) [Vol rate/Area] 26 Low 60 - PINF [facility] Glucose [Mass/Vol] 108 mg/dL High 74 - 106 mg/dL [facility] Interpretation and review of laboratory results Abnormal [facility] Potassium [Moles/Vol] 4.0 mmol/L 3.5 - 5.1 mmol/L [facility] Sodium [Moles/Vol] 139 mmol/L 136 - 145 mmol/L [facility] TBH EGFR-NON AF MALAWIAN 21 Low 60 - PINF [facility] Urea nitrogen [Mass/Vol] 78.0 mg/dL Critically high 7.0 - 18.0 mg/dL [facility] Comment on above: RESULTS CALLED TO FANNIE STALEY LPN @BY Iwona Goff at 1039 Urea nitrogen/Creatinine [Mass ratio] 34.4 mg/mg [facility] Research Noteon 06-14-2023 Food And Beverage Manager Authentication Interface Message Text ..Documentation of Human Investigation Informed Consent Process Informed Consent (Adult) IRB Screening/Consent Visit for study: Post Market Clinical Evaluation of Gamma 4: Prospective, Multicenter, Follow Up Study (MILEY) PI Dr. Colt GRANDE TITLE: [facility]LEY PI CONTACT NUMBER [phone] HAIR BOILER Giovanna Serrano PHONE [phone] The above research study consent was explained to this subject and her Health Care Proxy. The informed consent was read to the subject. All study related procedures, potential risks, benefits and alternative treatments were reviewed, discussed and explained. No study related activities or procedures were done prior to the subject signing the Informed Consent Form. The Informed Consent process allowed the Subject an opportunity to ask questions, receive substantial answers and understand the content of the ICF. The subject verbalized an understanding of the research study (study related procedures, potential risks, benefits and visit procedures) and agrees to participate. All questions answered by Dr. Live. The subject was informed that study participation is voluntary and she can withdraw consent at any time. This study is not being conducted with women as subjects. This study is not being conducted with Minor Children. Subject has signed and dated the informed consent. A signed and dated copy of the Informed Consent and HIPAA was given to Subject for their records. Date of informed consent 06/09/2023. Time of informed consent 9:45am Normal [facility] ALL HGB HCTon 06-11-2023 Hematocrit (Bld) [Volume fraction] 27.3 % Low 36.0 - 48.0 % [facility] Hemoglobin (Bld) [Mass/Vol] 9.0 g/dL Low 12.0 - 16.0 g/dL [facility] Interpretation and review of laboratory results Abnormal [facility] No Panel Informationon 06-09 Radiology Study observation (narrative) [facility] Patient Instructionson 06-09 Food And Beverage Manager Authentication Interface Message Text Weight bearing: weight bear as tolerated on your left lower extremity Continue eliquis twice daily to help prevent blood clots You may shower Continue to work with therapy on strengthening/gait training No tub soaks/baths Call with any questions/concerns, fevers greater than 101F, significant increases in pain, increased incisional redness/drainage Return to clinic in 4 weeks MAKE AN APPOINTMENT WITH A SPINE SURGEON near you I recommend Dr. James Noriega who sees patients at [facility] Normal [facility] Progress Noteson 06-09-2023 Food And Beverage Manager Authentication Interface Message Text Doing well overall. Has had difficulties ambulating for months prior to fall. Has not been worked up much. Bilateral foot drop which was new in the past few months but present prior to surgery. Recommended she see neurology or spine surgeon near [place]. They are closer to [facility] and 1.5 hrs from here. They would prefer to see someone at [facility]. On eliquis. Incisions well healed. Ambulating with PT. Incisions well healed. No signs of infection. Sutures removed today. Xrays with maintained alignment an intact implants PLAN: Weight bearing: weight bear as tolerated on your left lower extremity Continue eliquis twice daily to help prevent blood clots You may shower Continue to work with therapy on strengthening/gait training No tub soaks/baths Call with any questions/concerns, fevers greater than 101F, significant increases in pain, increased incisional redness/drainage Return to clinic in 4 weeks MAKE AN APPOINTMENT WITH A SPINE SURGEON near you I recommend Dr. James Noriega who sees patients at [facility] Normal [facility] XR FEMUR RIGHT MINIMUM 2 VIE WSon 06-09-2023 XR FEMUR RIGHT MINIMUM 2 VIEWS EXAMINATION: XR FEMUR RIGHT MINIMUM 2 VIEWSPRO/RT 06/09/2023 08:28 AM CLINICAL HISTORY: fu ASSOCIATED DIAGNOSIS: Closed displaced intertrochanteric fracture of right femur, initial encounter ([facility]) ORDERING PROVIDER: KAYDEN SMALLS NOTE: COMPARISON: None IMPRESSION: Threaded nail intramedullary ramon with distal screw fixation provides ORIF for previously noted comminuted intratrochanteric fracture. Overall alignment is nearly anatomic. Hardware is intact. Underlying osteopenia. Right femur MACRO: None Normal [facility] XR Femur - right 2 Viewson 0 06-09-2023 EXAMINATION: XR FEMU R RIGHT MINIMUM 2 VIEWSPRO/RT 06/09/2023 08:28 AM CLINICAL HISTORY: fu ASSOCIATED DIAGNOSIS: Closed displaced intertrochanteric fracture of right femur, initial encounter ([facility]) ORDERING PROVIDER: KAYDEN SMALLS NOTE: COMPARISON: None IMPRESSION: Threaded nail intramedullary ramon with distal screw fixation provides ORIF for previously noted comminuted intratrochanteric fracture. Overall alignment is nearly anatomic. Hardware is intact. Underlying osteopenia. Right femur MACRO: None RADIOLOGY Gina Ruiz MD - 06/09/2023 EXAMINATION: XR FEMUR RIGHT MINIMUM 2 VIEWSPRO/RT 06/09/2023 08:28 AM CLINICAL HISTORY: fu ASSOCIATED DIAGNOSIS: Closed displaced intertrochanteric fracture of right femur, initial encounter ([facility]) ORDERING PROVIDER: KAYDEN SMALLS NOTE: COMPARISON: None IMPRESSION: Threaded nail intramedullary ramon with distal screw fixation provides ORIF for previously noted comminuted intratrochanteric fracture. Overall alignment is nearly anatomic. Hardware is intact. Underlying osteopenia. Right femur MACRO: None [facility] XR HIP RIGHT W/ PELVIS MIN 2 -3 VIEWSon 06-09-2023 XR HIP RIGHT W/ PELVIS MIN 2-3 VIEWS EXAMINATION: XR HIP RIGHT W/ PELVIS MIN 2-3 VIEWSPRO/RT 06/09/2023 08:18 AM CLINICAL HISTORY: fu or pain ASSOCIATED DIAGNOSIS: Closed displaced intertrochanteric fracture of right femur, initial encounter ([facility]) ORDERING PROVIDER: KAYDEN LEE TECHNEARLE NOTE: COMPARISON: XR HIP RIGHT W/ PELVIS MIN 2-3 VIEWS 05/14/2023, 3:51 AM FINDINGS: IMPRESSION: Status post ORIF right intratrochanteric fracture. Email intramedullary ramon device. Alignment is essentially anatomic. Underlying osteopenia. 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 Surgical clips-presumably from cholecystectomy-correlate with history. Right hip MACRO: None Normal [facility] XR Pelvis and Hip - right Vi ewson 06-09-2023 EXAMINATION: XR HIP RIGHT W/ PELVIS MIN 2-3 VIEWSPRO/RT 06/09/2023 08:18 AM CLINICAL HISTORY: fu or pain ASSOCIATED DIAGNOSIS: Closed displaced intertrochanteric fracture of right femur, initial encounter ([facility]) ORDERING PROVIDER: KAYDEN LEE TECHNEARLE NOTE: COMPARISON: XR HIP RIGHT W/ PELVIS MIN 2-3 VIEWS 05/14/2023, 3:51 AM FINDINGS: IMPRESSION: Status post ORIF right intratrochanteric fracture. Email intramedullary ramon device. Alignment is essentially anatomic. Underlying osteopenia. 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 Surgical clips-presumably from cholecystectomy-correlate with history. Right hip MACRO: None RADIOLOGY Gina Ruiz MD - 06/09/2023 EXAMINATION: XR HIP RIGHT W/ PELVIS MIN 2-3 VIEWSPRO/RT 06/09/2023 08:18 AM CLINICAL HISTORY: fu or pain ASSOCIATED DIAGNOSIS: Closed displaced intertrochanteric fracture of right femur, initial encounter ([facility]) ORDERING PROVIDER: KAYDEN LEE TECHNEARLE NOTE: COMPARISON: XR HIP RIGHT W/ PELVIS MIN 2-3 VIEWS 05/14/2023, 3:51 AM FINDINGS: IMPRESSION: Status post ORIF right intratrochanteric fracture. Email intramedullary ramon device. Alignment is essentially anatomic. Underlying osteopenia. 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 Surgical clips-presumably from cholecystectomy-correlate with history. Right hip MACRO: None [facility] Telephone Encounteron 2023 Food And Beverage Manager Authentication Interface Message Text Pt unable to make 2/7 appt needs rescheduled please call facility at [phone] to reschedule can be any day after 9 am. Normal [facility] Telephone Encounteron 2023 Food And Beverage Manager Authentication Interface Message Text Situation: F/U w [facility] Background: [facility]ia [place] [facility] calling to schedule Pt for F/U w [facility]. Pt seen in ED by [facility] on 05/13/23. ED discharge instructed F/U w provider [facility]. Basia would like office to contact at earliest convenience to get Pt scheduled. Assessment: Please assist Recommendation: Basia can be reached at [phone] Normal [facility] Food And Beverage Manager Authentication Interface Message Text What is the need: Medicare TOC SNF Review Situation: Patient within the 30 day readmission period Background: Attending Meng Whitaker MD Date of Admission 05/13/2023 Date of Discharge 05/18/2023 [facility] DIVISION OF TRAUMA SURGERY FINAL DIAGNOSES: Hospital Problems as of 05/18/2023 * (Principal) H/O traumatic fracture Assessment: Reviewed careport patient remains in SNF 05/18/2023 7:35 PM [facility] ([facility]) Recommendation: continue PHU SNF Review Process Normal [facility] Telephone Encounteron 2023 Food And Beverage Manager Authentication Interface Message Text What is the need: Medicare PHU SNF Review Situation: Patient within the 30 day readmission period Background: Attending Meng Whitaker MD Date of Admission 05/13/2023 Date of Discharge 05/18/2023 [facility] DIVISION OF TRAUMA SURGERY FINAL DIAGNOSES: Hospital Problems as of 05/18/2023 * (Principal) H/O traumatic fracture Assessment: Reviewed careport patient remains in SNF 05/18/2023 7:35 PM [facility] ([facility]) Recommendation: continue PHU SNF Review Process Elmo Allen RN Normal [facility] Telephone Encounteron 2023 Food And Beverage Manager Authentication Interface Message Text Patient discharged to a SNF Name of [facility]: [facility] Phone number: [phone] Patient enrolled in [facility] to begin discharge review Normal [facility] BASIC METABOLIC PANELon 05-03 Anion gap [Moles/Vol] 18 mmol/L Normal 10-20 [facility] Comment on above: Performed By: #### 8 2948 #### [facility] [address] [place], [address] Calcium [Mass/Vol] 9.1 mg/dL Normal 8.6-10.3 [facility] Comment on above: Result Comment: Note updated reference ranges. Performed By: #### 8 2948 #### [facility] [address] [place], [address] Chloride [Moles/Vol] 100 mmol/L Normal 98-107 [facility] Comment on above: Result Comment: Note updated reference ranges. Performed By: #### 8 2948 #### [facility]UCOSE [facility] [address] [place], [address] CO2 [Moles/Vol] 25 mmol/L Normal 21-31 [facility] Comment on above: Result Comment: Note updated reference ranges. Performed By: #### 8 2948 #### [facility]UCO[facility] [address] [place], [address] Creatinine [Mass/Vol] 2.06 mg/dL High 0.60-1.20 [facility] Comment on above: Result Comment: Note updated reference ranges. Performed By: #### 8 2948 #### NURSING [facility]UCOSE [facility] [address] [place], [address] ESTIMATED GFR (CKD-EPI) 25 mL/min/1.73sqm Low >=60 [facility] Comment on above: Result Comment: 2020 CKD EPI Equation using Creatinine without Race Comment: Estimated glomerular filtration rate (eGFR) is calculated without a race coefficient. Values should be interpreted in the context of the patient's full clinical presentation. Reference: 1. Miguel Ángel Mercedes, Kushal M, Good DAVIS, et al.. A Unifying Approach for GFR Estimation: Recommendations of the NKF-ASN Task Force on Reassessing the Inclusion of Race in Diagnosing Kidney Disease. [place] Journal of Kidney Diseases 2021;79(2):268-88.e1. 2. N Engl J Med 2020 Vol. 385 Issue 19 Pages 8828-9748 Performed By: #### 8 2948 #### NURSING GLUCOSE [facility] [address] [place], [address] Glucose [Mass/Vol] 109 mg/dL Normal 74-109 [facility] Comment on above: Performed By: #### 8 2948 #### NURSING GLUCOSE PRO[facility] [address] [place], [address] Potassium [Moles/Vol] 4.0 mmol/L Normal 3.5-5.0 [facility] Comment on above: Result Comment: Note updated reference ranges. Note updated reference ranges. Performed By: #### 8 2948 #### NURSING [facility]UCOSE [facility] [address] [place], [address] Sodium [Moles/Vol] 139 mmol/L Normal 136-145 [facility] Comment on above: Result Comment: Note updated reference ranges. Performed By: #### 8 2948 #### NURSING GLUCOSE PROGRAM [address] [place], [address] Urea nitrogen [Mass/Vol] 68 mg/dL High 7-25 [facility] Comment on above: Result Comment: Note updated reference ranges. Performed By: #### 8 2948 #### NURSING GLUCOSE PROGRAM [address] [place], [address] COMPLETE BLOOD COUNTon 05-18 Erythrocyte distribution width (RBC) [Ratio] 14.0 % Normal 11.5-14.5 [facility] Comment on above: Performed By: #### 8 2948 #### NURSING GLUCOSE PROGRAM [address] [place], [address] Hematocrit (Bld) [Volume fraction] 24.3 % Low 36.0-46.0 [facility] Comment on above: Performed By: #### 8 2948 #### NURSING GLUCOSE PROGRAM [address] [place], [address] Hemoglobin (Bld) [Mass/Vol] 8.3 g/dL Low 12.0-15.0 [facility] Comment on above: Performed By: #### 8 2948 #### NURSING GLUCOSE PROGRAM [address] [place], [address] MCH (RBC) [Entitic mass] 31.5 pg Normal 26.0-34.0 [facility] Comment on above: Performed By: #### 8 2948 #### NURSING GLUCOSE PROGRAM [address] [place], [address] MCHC (RBC) [Mass/Vol] 34.3 g/dL Normal 32.0-35.9 [facility] Comment on above: Performed By: #### 8 2948 #### NURSING GLUCOSE PROGRAM [address] [place] [address], [address] MCV (RBC) [Entitic vol] 92 fL Normal 80-100 [facility] Comment on above: Performed By: #### 8 2948 #### NURSING GLUCOSE PRO[facility] [address] [place], [address] Platelet mean volume (Bld) [Entitic vol] 7.5 fL Normal 7.5-11.2 [facility] Comment on above: Performed By: #### 8 2948 #### NURSING GLUCOSE PROGRAM [address] [place] [address], [address] Platelets (Bld) [#/Vol] 252 10*3/uL Normal 150-400 [facility] Comment on above: Performed By: #### 8 2948 #### NURSING GLUCOSE PROGRAM [address] [place], [address] RBC (Bld) [#/Vol] 2.64 10*6/uL Low 4.00-5.20 [facility] Comment on above: Performed By: #### 8 2948 #### NURSING GLUCOSE PROGRAM [address] [place], [address] WBC (Bld) [#/Vol] 10.0 10*3/uL Normal 4.5-11.5 [facility] Comment on above: Performed By: #### 8 2948 #### NURSING GLUCOSE PROGRAM [address] [place], [place], [address] Care Plan Noteon 05-18-2023 Food And Beverage Manager Authentication Interface Message Text Nursing staff notified resident team patient was tachycardic concerned for dehydration. Patient has also had liquid stool output with contamination in the vaginal region. Urine will be sent off for UTI analysis and cultures. Patient is afrebrile. Given 500mL of normal saline for tachycardia. Need to follow up on stool output in the am for continued possible dehydration. Normal [facility] Food And Beverage Manager Authentication Interface Message Text Problem: Routine Care: Goal: Patient care will be managed and maintained throughout hospital stay per unit specific routine care procedure Outcome: Progressing Problem: Impaired Skin Integrity: Goal: Acheive wound healing without signs and symptoms of infection Outcome: Progressing Problem: Altered Elimination: Goal: Establishment of normal bowel function will be achieved and maintained Outcome: Progressing Problem: Impaired Mobility: Goal: Ability to tolerate increased activity will improve and be maintained Outcome: Progressing Goal: Ability to maintain or regain baseline function will be acheived Outcome: Progressing Problem: Activity Intolerance: Goal: Demonstrate progressive return to baseline activity level Outcome: Progressing Problem: VTE Prophylaxis: Goal: Will be free of DVT Outcome: Progressing Problem: Fluid and Electrolyte Imbalance: Goal: Adequate fluid and electrolyte balance will be achieved and maintained Outcome: Progressing Problem: Anxiety: Goal: Level of anxiety will decrease Outcome: Progressing Problem: Altered Neurological Status: Goal: Optimal neurological status will be maintained or regained Outcome: Progressing Problem: Alteration in Tissue Perfusion: Peripheral: Goal: Promote adequate perfusion and limit complications for a person experiencing or is at risk for inadequate tissue perfusion in peripheral circulation Outcome: Progressing Problem: Alteration in Respiratory Status: Goal: Achieve Optimal Respiratory Status with Minimal Ventilatory/Oxygen Support Outcome: Progressing Problem: Acute Pain: Goal: Ability to identify pain intensity on a pain scale and rate it consistently will be achieved and maintained Outcome: Progressing Goal: Understanding of proper administration and use of medicines will be achieved Outcome: Progressing Goal: Acceptable level of pain which allows the patient to achieve functional outcome goals Outcome: Progressing Problem: Safety: Goal: Patient will remain free of falls during hospital stay Outcome: Progressing Goal: Free from injury during hospitalization Outcome: Progressing Problem: Discharge Planning: Goal: Discharge needs of the adult patient will be met Outcome: Progressing Problem: Routine Care: Goal: Patient care will be managed and maintained throughout hospital stay per unit specific routine care procedure Outcome: Progressing Problem: Acute Pain: Goal: Ability to identify pain intensity on a pain scale and rate it consistently will be achieved and maintained Outcome: Progressing Side rails in place x3. Call light within reach. Bed alarm on. Problem: Safety: Goal: Patient will remain free of falls during hospital stay Outcome: Progressing Normal [facility] Consultson 05-18-2023 Food And Beverage Manager Authentication Interface Message Text Dietitian vs DietaryTech: Open Cut Examiner Diet Software Development Engineer Nutrition Screening Reason for visit: LOS 5 or more days Assessment Admitting Diagnosis: Mandibular fracture, hip fracture High risk nutrition diagnosis: No - no points Past Medical History: History reviewed. No pertinent past medical history. Food Allergies: pineapple, grapefruit Labs: LFT's (last 3 years, up to 5 values) None Albumin: n/a - no points Skin Integrity: Surgical incision - no points Fluid Accumulation: non-pitting Diet Order: Regular; DM [place]; Dental Mechanical Soft Supplements: boost glucose max - 3 times daily % PO Intake: 50% Intake Difficulties: Diarrhea and/or constipation - 0 points 5' 5 144.4 lbs BODY MASS INDEX 05/13/2023 05/13/2023 Kg 65.499 kg 65.499 kg Lbs 144 lb 6.4 oz 144 lb 6.4 oz BMI 24.03 kg/m2 BMI: 24.03 BMI Screening value: 21 or greater - 0 points % Weight Loss: not significant Weight Loss Screening Value: Not significant - 0 points Education: No nutrition education indicated at this time. Comments: intake fair. C-diff+. MBS 05/17 - recommendations for Soft diet/thin liquids. Oral supplements are in place per orders. Will follow. Number of Points: 0 Nutritional Plan of Care: Less than or equal to 6 points: At this time, patient is at low nutrition risk. DTR to provide routine follow up. Will continue to follow, Kasey Brand, Diet Software Development Engineer Pager [phone] Normal [facility] Discharge Planning Noteon Food And Beverage Manager Authentication Interface Message Text CASE MANAGEMENT/SOCIAL WORK SNF DC NOTE: Pt has been cleared for transfer to SNF on this date. Pt will be transferred to [facility] via Paulino Galeano ([id number]) at 4PM. Nursing report may be called to [phone] Support person notified: DaughterKirstin ([phone]) Patient/Family, team aware of above and agreeable. For discharge, please ensure the following is completed: MD to place DC order, reconcile meds, and print narcotics to go with patient to SNF [place] to print Discharge Summary, [place], Summary of Care, Narcotic Scripts, and Signature Page and place in a packet to be given to sheet pile driver operator If transport/discharge needs to be adjusted/cancelled, team (/RN) to cancel transport, update support person, and update receiving facility. Lidia Morel, AUTOMOTIVE PARTS COUNTERPERSON, MACHINE STONE POLISHER APPRENTICE Normal [facility] GLUCOSE, FINGERSTICK-IN OFFI CEon 05-18-2023 Glucose [Mass/Vol] 140 mg/dL High 80-116 [facility] Comment on above: Performed By: #### [id number] #### NURSING GLUCOSE PROGRAM [address] [place] [address], Glucose [Mass/Vol] 144 mg/dL High 80-116 [facility] Comment on above: Performed By: #### C R BGA, CR GLU, CR ICA, CR COOX, CR LYTES, LACT #### [facility] [address] [place] [address], Glucose [Mass/Vol] 143 mg/dL High 80-116 [facility] Comment on above: Performed By: #### [id number] #### NURSING GLUCOSE PROGRAM [address] [place] [address], [id number] HEMOGLOBIN A1Con 05-18-2023 Glucose [Mass/Vol] 128 mg/dL Normal [facility] Comment on above: Performed By: #### C R BGA, CR GLU, CR ICA, CR COOX, CR LYTES, LACT #### [facility] [address] [place] [address], HbA1c (Bld) [Mass fraction] 6.1 % High 4.0-5.6 [facility] Comment on above: Performed By: #### C R BGA, CR GLU, CR ICA, CR COOX, CR LYTES, LACT #### [facility] [address] [place] [address], MAGNESIUMon 05-18-2023 Magnesium [Mass/Vol] 1.6 mg/dL Low 1.9-2.7 [facility] Comment on above: Result Comment: Note updated reference ranges. 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 Patient tripped over large package of toilet paper at home, causing her to fall and strike her face. OSH imaging showed right hip fracture, L mandibular fracture with TMJ dislocation. Transferred to [facility] for operative intervention. Hospital Course: 05/13/2023: Transferred to [facility] for R hip fracture, L mandibular fracture following mechanical FFS. Ortho and OMFS consulted. 05/14/2023: OR with Ortho for R CMN (Dr. Live). Geriatrics consult for frequent falls in the home, polypharmacy. 05/15/2023: Known afib, rates up to 120 bpm. 5 mg metoprolol given per Trauma resident. Thought to be related to held metoprolol dose on day of surgery, as well as volume deficit as patient's home diuretics were given and recent echo suggested hyperdynamic EF (75%) and RAP < 5. 1L fluid given throughout the day for worsening ELI. Adequate PO intake, kim removed. 05/16/2023: 1 unit PRBCs overnight for hemoglobin 6.3 with improvement to 8.1. Pain control. 05/17/2023:remained admitted d/t drift in hgb and for pain control 24 Hour Events: This is my first time meeting this patient. There was concern overnight for possible dehydration by night team and given 500cc bolus for tachycardia. Patient reports feeling well today, tolerating PO, no N/V. AM labs reviewed, no leukocytosis, improved creatinine to 2.06 from 2.24, up-trending BUN to 68 from 65, otherwise lytes appropriate UOP: 3 occurrences BM: 0 occurrences Tmax: 36.9C PHYSICAL EXAM Vital Signs: Vital sign ranges over the past 24 hours (retrieved 05/18/2023 at 8:28 AM): Tmax (24 hours): 98.4 ???F (36.9 ???C) Pulse Av.8 Min: 104 Max: 113 Systolic (24hrs), Av , Min:132 , Max:139 Diastolic (24hrs), Av, Min:75, Max:81 MAP (mmHg) Av.3 mmHg Min: 91 mmHg Max: 96 mmHg Resp Av Min: 16 Max: 20 SpO2 Av % Min: 100 % Max: 100 % PHYSICAL EXAM GENERAL:resting in bed, no acute distress HEENT: nasal cannula in place, 3L CARDIOVASCULAR: irregularly irregular, rate controlled PULMONARY:Non-labored respirations, able to speak in complete sentences, CTABL ABDOMINAL: soft, non-tender, non-distended EXTREMITIES: MINAYA to command, aquacel dressings to RLE with mild swelling noted. Distal motor and sensation intact, no calf tenderness or swelling SKIN: warm and dry NEUROLOGICAL: awake and alert, clear speech, follows commands LABORATORY RESULTS (LAST 24 HOURS) CBC/PT/INR WBC RBC Hgb Hct MCV RDW Plt PT aPTT INR 05/18/2340 10.0 2.64 8.3 24.3 92 14.0 252 Basic Metabolic Panel Na K Cl CO2 Gap Glu BUN Cr Ca Mg PO4 05/18/23 0041 1.6 Comment: Note updated reference ranges. 05/18/23 0041 139 Comment: Note updated reference ranges. 4.0 Comment: Note updated reference ranges. Note updated reference ranges. 100 Comment: Note updated reference ranges. 25 Comment: Note updated reference ranges. 18 109 68 Comment: Note updated reference ranges. 2.06 Comment: Note updated reference ranges. 9.1 Comment: Note updated reference ranges. Fingerstick Glucose (last 72 hours) (Last 10 results in the past 72 hours) Glucose 05/18/23 0802 140 05/17/23 1956 138 05/17/23 1646 138 05/17/23 1150 153 05/17/23 0800 132 05/16/23 2112 142 05/16/23 1649 134 05/16/23 1221 156 05/16/23 0758 132 05/15/23 2045 162 IMAGING RESULTS (PERSONALLY REVIEWED) MBS: 1. Delayed initiation of the pharyngeal phase of swallowing with the head of the contrast column at the level of the piriform. 2. Deep laryngeal penetration. 3. Minimal residual pooling of contrast in the valleculae and piriform sinuses. 4. 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 All admit imaging and follow up imaging reviewed. No new imaging ------ ASSESSMENT AND PLAN --------- Diagnoses: Mechanical fall from standing R displaced IT fracture Left mandibular fracture with dislocated L TMJ joint Acute pain due to trauma Acute blood loss anemia Acute post-op p (more content not included)... Normal [facility] URINALYSIS WITH REFLEX CULTU RE PERFORMABLEon 05-18-2023 Glucose Ql (U) Negative Normal Negative [facility] Comment on above: Order Comment: A neg ative leukocyte esterase AND negative nitrite test or absence of pyuria (urine WBC count <= 5-10) make a UTI (urinary tract infection) very unlikely in a non-neutropenic adult (<=5% likelihood in many studies). A positive leukocyte esterase, nitrite and/or pyuria is a nonspecific result. This can be seen in conditions other than a UTI e.g. asymptomatic bacteriuria, gynecologic infections, sexually transmitted infections, and noninfectious conditions (positive predictive value for UTI around 50%) Performed By: #### u rinalysiswcul ####[facility] [id number] [place], [place], #### C URINE ####[facility] [address] [place], [place] Protein (U) [Mass/Vol] 30 mg/dL Abnormal Negative [facility] Comment on above: Order Comment: A neg ative leukocyte esterase AND negative nitrite test or absence of pyuria (urine WBC count <= 5-10) make a UTI (urinary tract infection) very unlikely in a non-neutropenic adult (<=5% likelihood in many studies). A positive leukocyte esterase, nitrite and/or pyuria is a nonspecific result. This can be seen in conditions other than a UTI e.g. asymptomatic bacteriuria, gynecologic infections, sexually transmitted infections, and noninfectious conditions (positive predictive value for UTI around 50%) Performed By: #### u rinalysiswcul ####S PATHOLOG[facility] [id number] [place], [place], #### C URINE ####[facility] [address] [place], [place] SQUAMOUS EPITHELIAL 3-5 Normal 0-10 [facility] Comment on above: Order Comment: A neg ative leukocyte esterase AND negative nitrite test or absence of pyuria (urine WBC count <= 5-10) make a UTI (urinary tract infection) very unlikely in a non-neutropenic adult (<=5% likelihood in many studies). A positive leukocyte esterase, nitrite and/or pyuria is a nonspecific result. This can be seen in conditions other than a UTI e.g. asymptomatic bacteriuria, gynecologic infections, sexually transmitted infections, and noninfectious conditions (positive predictive value for UTI around 50%) Performed By: #### u rinalysiswcul ####[facility] [id number] [place], [place], #### C URINE ####[facility] [address] [place], [place] U APPEAR Clear Normal Clear [facility] Comment on above: Order Comment: A neg ative leukocyte esterase AND negative nitrite test or absence of pyuria (urine WBC count <= 5-10) make a UTI (urinary tract infection) very unlikely in a non-neutropenic adult (<=5% likelihood in many studies). A positive leukocyte esterase, nitrite and/or pyuria is a nonspecific result. This can be seen in conditions other than a UTI e.g. asymptomatic bacteriuria, gynecologic infections, sexually transmitted infections, and noninfectious conditions (positive predictive value for UTI around 50%) Performed By: #### u rinalysiswcul ####[facility] [id number] [place], [place], #### C URINE ####[facility] [address] [place], [place] U BACTERIA Few Normal [facility] Comment on above: Order Comment: A neg ative leukocyte esterase AND negative nitrite test or absence of pyuria (urine WBC count <= 5-10) make a UTI (urinary tract infection) very unlikely in a non-neutropenic adult (<=5% likelihood in many studies). A positive leukocyte esterase, nitrite and/or pyuria is a nonspecific result. This can be seen in conditions other than a UTI e.g. asymptomatic bacteriuria, gynecologic infections, sexually transmitted infections, and noninfectious conditions (positive predictive value for UTI around 50%) Performed By: #### u rinalysiswcul ####[facility] [id number] [place], [place], #### C URINE ####[facility] [address] [place], [place] U BILI Negative Normal Negative [facility] Comment on above: Order Comment: A neg ative leukocyte esterase AND negative nitrite test or absence of pyuria (urine WBC count <= 5-10) make a UTI (urinary tract infection) very unlikely in a non-neutropenic adult (<=5% likelihood in many studies). A positive leukocyte esterase, nitrite and/or pyuria is a nonspecific result. This can be seen in conditions other than a UTI e.g. asymptomatic bacteriuria, gynecologic infections, sexually transmitted infections, and noninfectious conditions (positive predictive value for UTI around 50%) Performed By: #### u rinalysiswcul ####[facility] [id number] [place], [place], #### C URINE ####[facility] [address] [place], [place] [address] U BLOOD Trace Abnormal Negative [facility] Comment on above: Order Comment: A neg ative leukocyte esterase AND negative nitrite test or absence of pyuria (urine WBC count <= 5-10) make a UTI (urinary tract infection) very unlikely in a non-neutropenic adult (<=5% likelihood in many studies). A positive leukocyte esterase, nitrite and/or pyuria is a nonspecific result. This can be seen in conditions other than a UTI e.g. asymptomatic bacteriuria, gynecologic infections, sexually transmitted infections, and noninfectious conditions (positive predictive value for UTI around 50%) Performed By: #### u rinalysiswcul ####[facility] [id number] [place], [place], #### C URINE ####[facility] [address] [place], [place] U COLOR Colorless Normal Colorless [facility] Comment on above: Order Comment: A neg ative leukocyte esterase AND negative nitrite test or absence of pyuria (urine WBC count <= 5-10) make a UTI (urinary tract infection) very unlikely in a non-neutropenic adult (<=5% likelihood in many studies). A positive leukocyte esterase, nitrite and/or pyuria is a nonspecific result. This can be seen in conditions other than a UTI e.g. asymptomatic bacteriuria, gynecologic infections, sexually transmitted infections, and noninfectious conditions (positive predictive value for UTI around 50%) Performed By: #### u rinalysiswcul ####[facility] [id number] [place], [place], #### C URINE ####[facility] [address] [place], [place] U KETONE Negative Normal Negative [facility] Comment on above: Order Comment: A neg ative leukocyte esterase AND negative nitrite test or absence of pyuria (urine WBC count <= 5-10) make a UTI (urinary tract infection) very unlikely in a non-neutropenic adult (<=5% likelihood in many studies). A positive leukocyte esterase, nitrite and/or pyuria is a nonspecific result. This can be seen in conditions other than a UTI e.g. asymptomatic bacteriuria, gynecologic infections, sexually transmitted infections, and noninfectious conditions (positive predictive value for UTI around 50%) Performed By: #### u rinalysiswcul ####[facility] [id number] [place], [place], #### C URINE ####[facility] [address] [place], [place] U LEUK Positive Abnormal Negative [facility] Comment on above: Order Comment: A neg ative leukocyte esterase AND negative nitrite test or absence of pyuria (urine WBC count <= 5-10) make a UTI (urinary tract infection) very unlikely in a non-neutropenic adult (<=5% likelihood in many studies). A positive leukocyte esterase, nitrite and/or pyuria is a nonspecific result. This can be seen in conditions other than a UTI e.g. asymptomatic bacteriuria, gynecologic infections, sexually transmitted infections, and noninfectious conditions (positive predictive value for UTI around 50%) Result Comment: Norm al urine specimens will not produce a positive reaction. Small amounts of leukocyte esterase, causing a positive reaction should be repeated, using a fresh urine specimen, from the same patient. Positive results require further testing for pyuria. Performed By: #### u rinalysiswcul ####[facility] [id number] [place], [place], #### C URINE ####[facility] [address] [place], [place] U MUCOUS Present Normal [facility] Comment on above: Order Comment: A neg ative leukocyte esterase AND negative nitrite test or absence of pyuria (urine WBC count <= 5-10) make a UTI (urinary tract infection) very unlikely in a non-neutropenic adult (<=5% likelihood in many studies). A positive leukocyte esterase, nitrite and/or pyuria is a nonspecific result. This can be seen in conditions other than a UTI e.g. asymptomatic bacteriuria, gynecologic infections, sexually transmitted infections, and noninfectious conditions (positive predictive value for UTI around 50%) Performed By: #### u rinalysiswcul ####[facility] [id number] [place], [place], #### C URINE ####[facility] [address] [place], [place] [id number] U NITRITE Negative Normal Negative [facility] Comment on above: Order Comment: A neg ative leukocyte esterase AND negative nitrite test or absence of pyuria (urine WBC count <= 5-10) make a UTI (urinary tract infection) very unlikely in a non-neutropenic adult (<=5% likelihood in many studies). A positive leukocyte esterase, nitrite and/or pyuria is a nonspecific result. This can be seen in conditions other than a UTI e.g. asymptomatic bacteriuria, gynecologic infections, sexually transmitted infections, and noninfectious conditions (positive predictive value for UTI around 50%) Performed By: #### u rinalysiswcul ####[facility] [id number] [place], [place], #### C URINE ####[facility] [address] [place], [place] [id number] U PH 6.0 Normal 5.0-8.0 [facility] Comment on above: Order Comment: A neg ative leukocyte esterase AND negative nitrite test or absence of pyuria (urine WBC count <= 5-10) make a UTI (urinary tract infection) very unlikely in a non-neutropenic adult (<=5% likelihood in many studies). A positive leukocyte esterase, nitrite and/or pyuria is a nonspecific result. This can be seen in conditions other than a UTI e.g. asymptomatic bacteriuria, gynecologic infections, sexually transmitted infections, and noninfectious conditions (positive predictive value for UTI around 50%) Performed By: #### u rinalysiswcul ####[facility] [id number] [place], [place], #### C URINE ####[facility] [address] [place], [place] U RBC 0-2 Normal 0-2 [facility] Comment on above: Order Comment: A neg ative leukocyte esterase AND negative nitrite test or absence of pyuria (urine WBC count <= 5-10) make a UTI (urinary tract infection) very unlikely in a non-neutropenic adult (<=5% likelihood in many studies). A positive leukocyte esterase, nitrite and/or pyuria is a nonspecific result. This can be seen in conditions other than a UTI e.g. asymptomatic bacteriuria, gynecologic infections, sexually transmitted infections, and noninfectious conditions (positive predictive value for UTI around 50%) Performed By: #### u rinalysiswcul ####[facility] [id number] [place], [place], #### C URINE ####[facility] [address] [place], [place] [id number] U SG 1.011 Normal <=1.030 [facility] Comment on above: Order Comment: A neg ative leukocyte esterase AND negative nitrite test or absence of pyuria (urine WBC count <= 5-10) make a UTI (urinary tract infection) very unlikely in a non-neutropenic adult (<=5% likelihood in many studies). A positive leukocyte esterase, nitrite and/or pyuria is a nonspecific result. This can be seen in conditions other than a UTI e.g. asymptomatic bacteriuria, gynecologic infections, sexually transmitted infections, and noninfectious conditions (positive predictive value for UTI around 50%) Performed By: #### u rinalysiswcul ####[facility] [id number] [place], [place], #### C URINE ####[facility] [id number] [place], [place] U UROBILI Negative Normal Negative The [facility] Comment on above: Order Comment: A neg ative leukocyte esterase AND negative nitrite test or absence of pyuria (urine WBC count <= 5-10) make a UTI (urinary tract infection) very unlikely in a non-neutropenic adult (<=5% likelihood in many studies). A positive leukocyte esterase, nitrite and/or pyuria is a nonspecific result. This can be seen in conditions other than a UTI e.g. asymptomatic bacteriuria, gynecologic infections, sexually transmitted infections, and noninfectious conditions (positive predictive value for UTI around 50%) Performed By: #### u rinalysiswcul ####[facility] [id number] [place] [address], #### C URINE ####[facility] [id number] [place], [place] [id number] U WBC 11-30 Abnormal 0-2 The [facility] Comment on above: Order Comment: A neg ative leukocyte esterase AND negative nitrite test or absence of pyuria (urine WBC count <= 5-10) make a UTI (urinary tract infection) very unlikely in a non-neutropenic adult (<=5% likelihood in many studies). A positive leukocyte esterase, nitrite and/or pyuria is a nonspecific result. This can be seen in conditions other than a UTI e.g. asymptomatic bacteriuria, gynecologic infections, sexually transmitted infections, and noninfectious conditions (positive predictive value for UTI around 50%) Performed By: #### u rinalysiswcul ####[facility] [id number] [place] [address], #### C URINE ####[address] URINE CULTUREon 05-18-2023 Bacteria identified Cx Nom (U) C URINE: Positive Culture Report ENTEROCOCCUS FAECIUM >100,000 CFU/ml Enterococcus faecium Normal The [facility] Comment on above: Performed By: #### u rinalysiswcul ####[facility] [id number] [place] [address], #### C URINE ####[facility] [id number] [place], [place] [id number] GISSEL ORGANISM: ENTEROCOCCUS FAECIUM ANTIBIOTIC GISSEL SENSITIVITY Ampicillin >= 32 R Ciprofloxacin >= 8 R Linezolid 2 S Vancomycin <= 0.5 S Tetracycline >= 16 R Nitrofurantoin 64 I Normal The [facility] Comment on above: Performed By: #### u rinalysiswcul ####[facility] [id number] [place], [place], #### C URINE ####[facility] [id number] [place], [place] BASIC METABOLIC PANELon 05-03 Anion gap [Moles/Vol] 19 mmol/L Normal 10-20 The [facility] Comment on above: Performed By: #### C BC #### [facility] [address] [place], [place], Calcium [Mass/Vol] 8.5 mg/dL Low 8.6-10.3 The [facility] Comment on above: Result Comment: Note updated reference ranges. Performed By: #### C BC #### [facility] [address] [place], [place], Chloride [Moles/Vol] 100 mmol/L Normal 98-107 The [facility] Comment on above: Result Comment: Note updated reference ranges. Performed By: #### C BC #### [facility] [address] [place], [place], CO2 [Moles/Vol] 24 mmol/L Normal 21-31 The [facility] Comment on above: Result Comment: Note updated reference ranges. Performed By: #### C BC #### [facility] [address] [place], [place], Creatinine [Mass/Vol] 2.24 mg/dL High 0.60-1.20 [facility] Comment on above: Result Comment: Note updated reference ranges. Performed By: #### C BC #### [facility] [address] [place], [place], ESTIMATED GFR (CKD-EPI) 22 mL/min/1.73sqm Low >=60 [facility] Comment on above: Result Comment: 2020 CKD EPI Equation using Creatinine without Race Comment: Estimated glomerular filtration rate (eGFR) is calculated without a race coefficient. Values should be interpreted in the context of the patient's full clinical presentation. Reference: 1. Miguel Ángel C, Kushal M, Good DAVIS, et al.. A Unifying Approach for GFR Estimation: Recommendations of the NKF-ASN Task Force on Reassessing the Inclusion of Race in Diagnosing Kidney Disease. [place] Journal of Kidney Diseases 2021;79(2):268-88.e1. 2. N Engl J Med 2020 Vol. 385 Issue 19 Pages 1801-2538 Performed By: #### C BC #### [facility] [address] [place], [place], Glucose [Mass/Vol] 116 mg/dL High 74-109 [facility] Comment on above: Performed By: #### C BC #### [facility] [address] [place], [place], Potassium [Moles/Vol] 3.8 mmol/L Normal 3.5-5.0 [facility] Comment on above: Result Comment: Note updated reference ranges. Note updated reference ranges. Performed By: #### C BC #### [facility] [address] [place], [place], Sodium [Moles/Vol] 139 mmol/L Normal 136-145 [facility] Comment on above: Result Comment: Note updated reference ranges. Performed By: #### C BC #### [facility] [address] [place], [place], Urea nitrogen [Mass/Vol] 65 mg/dL High 7-25 [facility] Comment on above: Result Comment: Note updated reference ranges. Performed By: #### C BC #### [facility] [address] [place], [place], COMPLETE BLOOD COUNTon 05-17 Erythrocyte distribution width (RBC) [Ratio] 14.0 % Normal 11.5-14.5 [facility] Comment on above: Performed By: #### C BC #### [facility] [address] [place] [address], Hematocrit (Bld) [Volume fraction] 23.3 % Low 36.0-46.0 [facility] Comment on above: Performed By: #### C BC #### [facility] [address] [place] [address], Hemoglobin (Bld) [Mass/Vol] 7.9 g/dL Low 12.0-15.0 [facility] Comment on above: Performed By: #### C BC #### [facility] [address] [place] [address], MCH (RBC) [Entitic mass] 31.1 pg Normal 26.0-34.0 [facility] Comment on above: Performed By: #### C BC #### [facility] [address] [place] [address], MCHC (RBC) [Mass/Vol] 33.9 g/dL Normal 32.0-35.9 [facility] Comment on above: Performed By: #### C BC #### [facility] [address] [place] [address], MCV (RBC) [Entitic vol] 92 fL Normal 80-100 [facility] Comment on above: Performed By: #### C BC #### [facility] [address] [place] [address], Platelet mean volume (Bld) [Entitic vol] 7.4 fL Low 7.5-11.2 [facility] Comment on above: Performed By: #### C BC #### [facility] [address] [place] [address], Platelets (Bld) [#/Vol] 225 10*3/uL Normal 150-400 [facility] Comment on above: Performed By: #### C BC #### [facility] [address] [place] [address], RBC (Bld) [#/Vol] 2.55 10*6/uL Low 4.00-5.20 [facility] Comment on above: Performed By: #### C BC #### [facility] [address] [place], [place], WBC (Bld) [#/Vol] 9.8 10*3/uL Normal 4.5-11.5 [facility] Comment on above: Performed By: #### C BC #### [facility] [address] [place], [place], Care Plan Noteon 05-17-2023 Food And Beverage Manager Authentication Interface Message Text Problem: Routine Care: Goal: Patient care will be managed and maintained throughout hospital stay per unit specific routine care procedure Outcome: Progressing Note: Patient rounded on per unit protocol and encouraged to use call cesar for assistance Problem: Impaired Skin Integrity: Goal: Acheive wound healing without signs and symptoms of infection Outcome: Progressing Problem: Altered Elimination: Goal: Establishment of normal bowel function will be achieved and maintained Outcome: Progressing Problem: Impaired Mobility: Goal: Ability to tolerate increased activity will improve and be maintained Outcome: Progressing Goal: Ability to maintain or regain baseline function will be acheived Outcome: Progressing Problem: Activity Intolerance: Goal: Demonstrate progressive return to baseline activity level Outcome: Progressing Problem: VTE Prophylaxis: Goal: Will be free of DVT Outcome: Progressing Problem: Fluid and Electrolyte Imbalance: Goal: Adequate fluid and electrolyte balance will be achieved and maintained Outcome: Progressing Problem: Anxiety: Goal: Level of anxiety will decrease Outcome: Progressing Problem: Altered Neurological Status: Goal: Optimal neurological status will be maintained or regained Outcome: Progressing Problem: Alteration in Tissue Perfusion: Peripheral: Goal: Promote adequate perfusion and limit complications for a person experiencing or is at risk for inadequate tissue perfusion in peripheral circulation Outcome: Progressing Problem: Alteration in Respiratory Status: Goal: Achieve Optimal Respiratory Status with Minimal Ventilatory/Oxygen Support Outcome: Progressing Problem: Acute Pain: Goal: Ability to identify pain intensity on a pain scale and rate it consistently will be achieved and maintained Outcome: Progressing Goal: Understanding of proper administration and use of medicines will be achieved Outcome: Progressing Goal: Acceptable level of pain which allows the patient to achieve functional outcome goals Outcome: Progressing Problem: Safety: Goal: Patient will remain free of falls during hospital stay Outcome: Progressing Goal: Free from injury during hospitalization Outcome: Progressing Problem: Discharge Planning: Goal: Discharge needs of the adult patient will be met Outcome: Progressing Problem: Routine Care: Goal: Patient care will be managed and maintained throughout hospital stay per unit specific routine care procedure Outcome: Progressing Problem: Acute Pain: Goal: Ability to identify pain intensity on a pain scale and rate it consistently will be achieved and maintained Outcome: Progressing Problem: Safety: Goal: Patient will remain free of falls during hospital stay Outcome: Progressing Normal [facility] Consultson 05-17-2023 Food And Beverage Manager Authentication Interface Message Text Modified Barium Swallow Study (MBSS) Time of service: 4230-1465 Duration: 10 minutes HPI Reason for Admit: 72 year old year old female with a history of HTN, HLD, DM2 c/b gastroparesis and neuropathy, CKD3b c/b anemia and secondary hyperparathyroidism, HFpEF, pAFib, COPD, MARGARITA, pHTN, seizure disorder, NAFLD, Haddad's esophagus, diverticulosis, IBS, RLS, depression, anxiety presenting to ED on 05/13/2023 for mechanical fall after tripping, multiple recent falls. Trauma work-up revealed R hip and L mandibular fractures. Ortho consult, brought patient to OR on 05/14/2023 for R CMN. On 05/17/22, team requested MBS d/t RN reports of aspiration during medication administration Imaging: CXR imaging negative for infiltrates in gravity dependent zones. Previous MBS: Patient has not participated in previous instrumental study. Current Diet: Soft, no chew diet/ Thin liquids Significant hospital events, surgeries, procedures: N/A PMHx History reviewed. No pertinent past medical history. S Patient referred for MBS 2/2 further evaluation of oropharyngeal phases of swallow function. Pain: The patient denies pain at this time. Cognitive Status: The patient is alert. Respiration: The patient is on 3L of O2 via NC. Collar: N/A Phonation: WFL Dentition: O Videofluoroscopic Swallow Study was conducted in the lateral projections by Speech-Language Pathologist Berta Harrison M.A., CCC-ARTIFACTS CONSERVATOR, in collaboration with Radiology Department, to evaluate oropharyngeal swallow function. Anatomic view under fluoroscopy Structural Variations: Cricopharyngeal bar. Post-Surgical Changes: N/A Lines, Tubes, and Collars: N/A Foreign Bodies: N/A P.O. barium contrast trials Varibar Thin liquid, Varibar [place], Varibar Pudding, solid coated in Varibar Pudding, Barium Tablet Oral phase findings Lip closure No labial escape/anterior loss of bolus Tongue control Cohesive bolus between tongue to palatal seal Bolus preparation Mastication not assessed secondary to mandibular precautions (fracture) Bolus transport Brisk tongue motion for A-P movement of the bolus Oral residue Trace residue lining oral structures Pharyngeal phase findings Initiation of swallow Bolus head at posterior angle of ramus Velar elevation No bolus between soft palate/pharyngeal wall Laryngeal elevation Complete superior movement of thyroid cartilage with contact of arytenoids to epiglottic petiole Anterior hyoid excursion Anterior Hyoid Excursion: Complete anterior movement Epiglottic movement Complete inversion Laryngeal vestibule closure Incomplete- narrow column of air/contrast in laryngeal vestibule Pharyngeal stripping wave Complete Pharyngeal contraction A-P view only Not tested Pharyngo- esophageal Segment Opening Complete distension and complete duration/no obstruction of flow of bolus Base of Tongue Retraction No bolus between tongue base and posterior pharyngeal wall Pharyngeal residue Trace residue within or on the pharyngeal structures Esophageal findings Esophageal clearance Not evaluated 8-point Penetration-Aspiration Scale (PAS) Mode: Most commonly occurring PAS score Max: Most severe PAS Score Thin liquid or IDDSI Level 0 Thin liquid Mode Rating: (2) Material enters the airway, remains above the vocal folds, and is ejected from the airway. Max Rating: (2) Material enters the airway, remains above the vocal folds, and is ejected from the airway. [place] Thick Liquid/ IDDSI 2 Mildly-thick liquid Mode Rating: (2) Material enters the airway, remains above the vocal folds, and is ejected from the airway. Max Rating: (2) Material enters the airway, remains above the vocal folds, and is ejected from the airway. Honey Thick Liquid/ IDDSI Level 3 Moderately-thick liquid Did not test Pureed Solids/ IDDSI 4 Pureed Mode Rating: (1) Material does not enter the airway Max Rating: (1) Material does not enter the airway Regular Solids/ IDDSI 7 Regular Did not test Barium Tablets with Thin liquid wash (1) Material does not enter the airway Compensatory Swallow Strategies Postures: N/A Maneuvers: N/A Bolus Modifications: N/A Dysphagia Outcome and Severity Scale (EDUARD) LEVEL 7 Normal in all situations, Normal diet, No strategies or extra time needed. A The patient exhibits within functional oral and pharyngeal phases of swallow function. At this time, both swallow safety and efficiency are intact. There is flash laryngeal penetration noted per this study, which in the absence of other pharyngeal deficits, is considered normal aging swallow. There is no aspiration visualized. Of note, patient exhibits cough under fluoro when there was no evidence of contrast in airway. The patient appears to be at low risk for aspiration related pulmonary complications and low risk for malnutrition/dehydration. Behavioral swallow therapy is not recommended given functional swallow. P Diet recommendation Soft diet/ Thin l (more content not included)... Normal [facility] [place] MODIFIED BARIUM SWALLOWon 05-17-2023 FL MODIFIED BARIUM SWALLOW EXAMINATION: FL MODIFIED BARIUM SWALLOW 05/17/2023 02:43 PM CLINICAL HISTORY: persisent coughing with PO intake following previous ARTIFACTS CONSERVATOR evaluation ASSOCIATED DIAGNOSIS: ORDERING PROVIDER: RENEE CHAU TECHNEARLE NOTE: COMPARISON: None FLUOROSCOPIST: WES MILLER FLUORO TIME: 1.4 Minutes TECHNIQUE: The examination was performed in conjunction with the Dysphagia/Speech Pathology Team. Various consistencies of contrast (thin barium, nectar thickened barium, barium mixed with apple sauce, barium pill and barium on a cookie) were administered and deglutition was evaluated in the lateral projection utilizing video fluoroscopy. INTRA-PROCEDURE MEDS: Barium Sulfate 60 % 30 g Route: Oral barium Sulfate 40 % 5 oz Route: Oralbarium Sulfate 40 % 5 oz Route: OralBarium Sulfate 1 Tab Route: Oral FINDINGS: Oral phase: Normal. Pharyngeal phase: Delayed initiation of the pharyngeal phase of swallowing with the head of the contrast column at the level of the piriform sinuses. Elevation of the larynx and epiglottic inversion: Demonstrated. Laryngeal penetration, tracheal aspiration or nasopharyngeal reflux: Deep laryngeal penetration Significant residual pooling of contrast within the valleculae or pyriform: Minimal residual pooling of contrast in the valleculae and piriform sinuses. Ancillary findings: 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. A complete report will also be performed by the Dysphagia/Speech Pathology Team. IMPRESSION: 1. Delayed initiation of the pharyngeal phase of swallowing with the head of the contrast column at the level of the piriform. 2. Deep laryngeal penetration. 3. Minimal residual pooling of contrast in the valleculae and piriform sinuses. 4. 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 MACRO: None Normal [facility] GLUCOSE, FINGERSTICK-IN OFFI CEon 05-17-2023 Glucose [Mass/Vol] 132 mg/dL High 80-116 [facility] Comment on above: Performed By: #### [id number] #### NURSING GLUCOSE PROGRAM [address] [place], [address] Glucose [Mass/Vol] 153 mg/dL High 80-116 [facility] Comment on above: Performed By: #### C R BGA, CR GLU, CR ICA, CR COOX, CR LYTES, LACT #### [facility] [address] [place] [address], Glucose [Mass/Vol] 138 mg/dL High 80-116 [facility] Comment on above: Performed By: #### C BC #### [facility] [address] [place] [address], Glucose [Mass/Vol] 138 mg/dL High 80-116 [facility] Comment on above: Performed By: #### 8 [id number] #### NURSING GLUCOSE PROGRAM [address] [place] [address], [id number] [facility]23 Food And Beverage Manager Authentication Interface Message Text Social Work/Case Management: Reason for placement: PT/OT Therapies Patient level of care required : Skilled Applicant's potential for returning to community: Convalescent stay:<30 days Prognosis: Good Rehab Potential: Improve Mental/Behavioral status:Alert Affect: Calm Social Work Assessment Functional status prior to admission: Independent functional ambulation with cane Community agencies active with patient: N/A Support system: Family 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: Return home Other hospital admissions within the past 60 days: No Other pertinent problems: Normal [facility] MAGNESIUMon 05-17-2023 Magnesium [Mass/Vol] 2.0 mg/dL Normal 1.6-2.8 [facility] Comment on above: Performed By: #### C R BGA, CR GLU, CR ICA, CR COOX, CR LYTES, LACT #### [facility] [address] [place] [address], Progress Noteson 05-17-2023 Food And Beverage Manager Authentication Interface Message Text ----- GENERAL INFORMATION ---- TRAUMA FLOOR - STAFF NOTE Patient Name: Kate Hagen Admission Date: 05/13/2023 Patient seen and examined on 05/17/23 --- INTERVAL HISTORY/EVENTS - Background: Kate Hagen is a 72 year old female with a PMHx of atrial fibrillation (on Eliquis - ran out 7 days prior to fall), DM2, Margarita, neuropathy, idiopathic epilepsy (does 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 Patient tripped over large package of toilet paper at home, causing her to fall and strike her face. OSH imaging showed right hip fracture, L mandibular fracture with TMJ dislocation. Transferred to [facility] for operative intervention. Hospital Course: 05/13/23: Transferred to [facility] for R hip fracture, L mandibular fracture following mechanical FFS. Ortho and OMFS consulted. 05/14/23: OR with Ortho for R CMN (Dr. Live). Geriatrics consult for frequent falls in the home, polypharmacy. 05/15/23: Known afib, rates up to 120 bpm. 5 mg metoprolol given per Trauma resident. Thought to be related to held metoprolol dose on day of surgery, as well as volume deficit as patient's home diuretics were given and recent echo suggested hyperdynamic EF (75%) and RAP < 5. 1L fluid given throughout the day for worsening ELI. Adequate PO intake, kim removed. 05/16/23: 1 unit PRBCs overnight for hemoglobin 6.3 with improvement to 8.1. Pain control. 24 Hour Events: No acute events overnight. Patient's daughter and niece at beside at time of interview. Patient reporting difficulty moving RLE secondary to pain, though able to range with assistance. Per nursing, patient coughing with PO intake. Previously evaluated by ARTIFACTS CONSERVATOR, who recommended MBS with change in respiratory status. Patient on 3L at home, MBS ordered given persistent cough with intake. Otherwise patient continues to have bowel function, family with SNF choices in mind. Labs: Na 139, K 3.8 (replaced with 40 mEq), mag 2. Improvement in renal function from 2.36 to 2.24. No leukocytosis, slight drift in hemoglobin fron 8.1 to 7.9. Vitals: Normotensive, improvement in HR from 56-117. Sats appropriate on home 3L NC. Tmax 98.5F. Intake: PO: 420 mL Output: UOP: 900 mL BM: Last BM documented 05/16 (2x occurrences) PHYSICAL EXAM Vital Signs: Vital sign ranges over the past 24 hours (retrieved 05/17/2023 at 6:31 AM): Tmax (24 hours): 98.5 ???F (36.9 ???C) Pulse Av.8 Min: 56 Max: 117 Systolic (24hrs), Av , Min:120 , Max:149 Diastolic (24hrs), Av, Min:62, Max:80 MAP (mmHg) Av.3 mmHg Min: 78 mmHg Max: 91 mmHg Resp Av Min: 16 Max: 22 SpO2 Av.8 % Min: 94 % Max: 100 % 24 Hour Input/Output Intake/Output Summary (Last 24 hours) at 05/17/2023 0611 Last data filed at 05/17/2023 0535 Gross per 24 hour Intake 470 ml Output 1051 ml Net -581 ml PHYSICAL EXAM GENERAL: No acute distress, laying in bed. Family at bedside. NEURO: GCS 15, no focal deficits. Weakness in RLE secondary to pain. Sensation intact. HEENT: L mandibular pain due to fracture CARDIOVASCULAR: Rate and rhythm irregular. No peripheral edema suggestive of FVO. Radial/DP pulses palpable. PULMONARY: Breathing easily on home 3L NC. No use of accessory muscles. Productive cough. Rales auscultated in R lung. ABDOMINAL: Soft, non-tender. Chronic R-sided ventral hernia. EXTREMITIES: Moves all extremities, weakness in RLE secondary to pain. LONI compression dressing to thigh, scant amount of strike-through to Aquacel dressing. Firmness palpated to proximal incision; stable since yesterday. No obvious bruising. SKIN: Warm, dry LABORATORY RESULTS (LAST 24 HOURS) CBC/PT/INR WBC RBC Hgb Hct MCV RDW Plt PT aPTT INR 05/17/23 0013 9.8 2.55 7.9 23.3 92 14.0 225 05/16/23 1140 9.8 2.59 8.1 23.8 92 14.1 218 Basic Metabolic Panel Na K Cl CO2 Gap Glu BUN Cr Ca Mg PO4 05/17/23 0013 2.0 05/17/23 0013 139 Comment: Note updated reference ranges. 3.8 Comment: Note updated reference ranges. Note updated reference ranges. 100 Comment: Note updated reference ranges. 24 Comment: Note updated reference ranges. 19 116 65 Comment: Note updated reference ranges. 2.24 Comment: Note updated reference ranges. 8.5 Comment: Note updated reference ranges. 05/16/23 1140 2.1 05/16/23 1140 136 Comment: Note updated reference ranges. 3.9 Comment: Note updated reference ranges. Note updated reference ranges. 100 Commen (more content not included)... Normal [facility] Food And Beverage Manager Authentication Interface Message Text PT/OT are recommending SNF. Reviewed therapy recommendations with pt and daughter, Kirstin ([phone]) CM/SW provided pt's daughter the quality and resource use measure data from available post-acute (PAC) providers, that best align with the patient's treatment goals and preferences from the medicare.gov compare site for SNFs. [place] of Choice was provided to the patient/patient event representative. Referrals were sent to: 1.) [facility] 2.) [facility] Awaiting review. KONRAD Kevin, MACHINE STONE POLISHER APPRENTICE ADDENDUM 4:00PM Obtained pt's SS# from daughter and updated [facility] as requested. Awaiting final determination. KONRAD Kevin, MACHINE STONE POLISHER APPRENTICE Normal [facility] TYPE AND SCREENon 05-17-2023 ABO and Rh group Nom (Bld) Blood group O Rh(D) positive Normal [facility] Comment on above: Performed By: #### C BC #### [facility] [address] [place] [address], ABSC INT Negative Normal [facility] Comment on above: Performed By: #### C BC #### [facility] [address] [place] [address], ANTI FXA-UNFRACT. HEPARINon 05-16-2023 ANTI FXA-UNFRACT. HEPARIN 0.21 IU/mL Normal <=1.20 [facility] Comment on above: Order Comment: The r ecommended therapeutic range for treatment of thrombosis with Unfractionated Heparin is 0.3-0.7 IU/mL.The recommended range for VTE prophylaxis with Unfractionated Heparin is 0.1-0.3 IU/mL Performed By: #### C R BGA, CR GLU, CR ICA, CR COOX, CR LYTES, LACT #### S [facility]OLOG[facility] LABORATORY [address] [place] [address], BASIC METABOLIC PANELon 05-03 Anion gap [Moles/Vol] 15 mmol/L Normal 10-20 [facility] Comment on above: Performed By: #### C BC #### [facility] [address] [place] [address], Calcium [Mass/Vol] 8.2 mg/dL Low 8.6-10.3 [facility] Comment on above: Result Comment: Note updated reference ranges. Performed By: #### C BC #### S [facility] [address] [place] [address], Chloride [Moles/Vol] 100 mmol/L Normal 98-107 [facility] Comment on above: Result Comment: Note updated reference ranges. Performed By: #### C BC #### S [facility] [address] [place], [place], CO2 [Moles/Vol] 25 mmol/L Normal 21-31 [facility] Comment on above: Result Comment: Note updated reference ranges. Performed By: #### C BC #### [facility] [address] [place], [place], Creatinine [Mass/Vol] 2.36 mg/dL High 0.60-1.20 [facility] Comment on above: Result Comment: Note updated reference ranges. Performed By: #### C BC #### [facility] [address] [place], [place], ESTIMATED GFR (CKD-EPI) 21 mL/min/1.73sqm Low >=60 [facility] Comment on above: Result Comment: 2020 CKD EPI Equation using Creatinine without Race Comment: Estimated glomerular filtration rate (eGFR) is calculated without a race coefficient. Values should be interpreted in the context of the patient's full clinical presentation. Reference: 1. Miguel Ángel C, Kushal M, Good DC, et al.. A Unifying Approach for GFR Estimation: Recommendations of the NKF-ASN Task Force on Reassessing the Inclusion of Race in Diagnosing Kidney Disease. [place] Journal of Kidney Diseases 2021;79(2):268-88.e1. 2. N Engl J Med 1 Vol. 385 Issue 19 Pages 0187-4676 Performed By: #### C BC #### S [facility] [address] [place], [place], Glucose [Mass/Vol] 146 mg/dL High 74-109 [facility] Comment on above: Performed By: #### C BC #### S [facility] [address] [place], [place], Potassium [Moles/Vol] 3.9 mmol/L Normal 3.5-5.0 [facility] Comment on above: Result Comment: Note updated reference ranges. Note updated reference ranges. Performed By: #### C BC #### [facility] [address] [place], [place], Sodium [Moles/Vol] 136 mmol/L Normal 136-145 [facility] Comment on above: Result Comment: Note updated reference ranges. Performed By: #### C BC #### S [facility] [address] [place], [place], Urea nitrogen [Mass/Vol] 61 mg/dL High 7-25 [facility] Comment on above: Result Comment: Note updated reference ranges. Performed By: #### C BC #### [facility] [address] [place], [place], COMPLETE BLOOD COUNTon 05-16 Erythrocyte distribution width (RBC) [Ratio] 13.9 % Normal 11.5-14.5 [facility] Comment on above: Performed By: #### C BC ####[facility] [id number] [place], [place], Erythrocyte distribution width (RBC) [Ratio] 14.2 % Normal 11.5-14.5 [facility] Comment on above: Performed By: #### C BC ####[facility] [id number] [place], [place], Erythrocyte distribution width (RBC) [Ratio] 14.1 % Normal 11.5-14.5 [facility] Comment on above: Performed By: #### C BC #### [facility] [address] [place], [place], Hematocrit (Bld) [Volume fraction] 18.9 % Critically low 36.0-46.0 [facility] Comment on above: Performed By: #### C BC ####S PATHOLOGY [id number] [place], [place], Hematocrit (Bld) [Volume fraction] 18.8 % Critically low 36.0-46.0 [facility] Comment on above: Performed By: #### C BC ####S PATHOLOGY [id number] [place], Hematocrit (Bld) [Volume fraction] 23.8 % Low 36.0-46.0 [facility] Comment on above: Performed By: #### C BC #### [facility] [address] [place], [place], Hemoglobin (Bld) [Mass/Vol] 6.5 g/dL Critically low 12.0-15.0 [facility] Comment on above: Performed By: #### C BC ####[facility] [id number] [place], Hemoglobin (Bld) [Mass/Vol] 6.3 g/dL Critically low 12.0-15.0 [facility] Comment on above: Performed By: #### C BC ####[facility] [id number] [place], Hemoglobin (Bld) [Mass/Vol] 8.1 g/dL Low 12.0-15.0 [facility] Comment on above: Performed By: #### C BC #### [facility] [address] [place], [place], MCH (RBC) [Entitic mass] 31.5 pg Normal 26.0-34.0 [facility] Comment on above: Performed By: #### C BC ####[facility] [id number] [place], MCH (RBC) [Entitic mass] 30.8 pg Normal 26.0-34.0 [facility] Comment on above: Performed By: #### C BC ####[facility] [id number] [place], MCH (RBC) [Entitic mass] 31.2 pg Normal 26.0-34.0 [facility] Comment on above: Performed By: #### C BC #### [facility] [address] [place], [place], MCHC (RBC) [Mass/Vol] 34.6 g/dL Normal 32.0-35.9 [facility] Comment on above: Performed By: #### C BC ####[facility] [id number] [place], MCHC (RBC) [Mass/Vol] 33.5 g/dL Normal 32.0-35.9 [facility] Comment on above: Performed By: #### C BC ####[facility] [id number] [place], MCHC (RBC) [Mass/Vol] 34.0 g/dL Normal 32.0-35.9 [facility] Comment on above: Performed By: #### C BC #### [facility] [address] [place] [address], MCV (RBC) [Entitic vol] 91 fL Normal 80-100 [facility] Comment on above: Performed By: #### C BC ####[facility] [id number] [place], MCV (RBC) [Entitic vol] 92 fL Normal 80-100 [facility] Comment on above: Performed By: #### C BC ####[facility] [id number] [place] [address], MCV (RBC) [Entitic vol] 92 fL Normal 80-100 [facility] Comment on above: Performed By: #### C BC #### [facility] [address] [place] [address], Platelet mean volume (Bld) [Entitic vol] 7.5 fL Normal 7.5-11.2 [facility] Comment on above: Performed By: #### C BC ####[facility] [id number] [place] [address], Platelet mean volume (Bld) [Entitic vol] 7.4 fL Low 7.5-11.2 [facility] Comment on above: Performed By: #### C BC ####[facility] [id number] [place], Platelet mean volume (Bld) [Entitic vol] 7.2 fL Low 7.5-11.2 [facility] Comment on above: Performed By: #### C BC #### [facility] [address] [place] [address], Platelets (Bld) [#/Vol] 217 10*3/uL Normal 150-400 [facility] Comment on above: Performed By: #### C BC ####[facility] [id number] [place], Platelets (Bld) [#/Vol] 217 10*3/uL Normal 150-400 [facility] Comment on above: Performed By: #### C BC ####[facility] [id number] [place], Platelets (Bld) [#/Vol] 218 10*3/uL Normal 150-400 [facility] Comment on above: Performed By: #### C BC #### [facility] [address] [place], [place], RBC (Bld) [#/Vol] 2.07 10*6/uL Low 4.00-5.20 [facility] Comment on above: Performed By: #### C BC ####[facility] [id number] [place], RBC (Bld) [#/Vol] 2.04 10*6/uL Low 4.00-5.20 [facility] Comment on above: Performed By: #### C BC ####[facility] [id number] [place] [address], RBC (Bld) [#/Vol] 2.59 10*6/uL Low 4.00-5.20 [facility] Comment on above: Performed By: #### C BC #### [facility] [address] [place], [place], WBC (Bld) [#/Vol] 10.2 10*3/uL Normal 4.5-11.5 [facility] Comment on above: Performed By: #### C BC ####[facility] [id number] [place], WBC (Bld) [#/Vol] 9.3 10*3/uL Normal 4.5-11.5 [facility] Comment on above: Performed By: #### C BC ####[facility] [id number] [place], WBC (Bld) [#/Vol] 9.8 10*3/uL Normal 4.5-11.5 [facility] Comment on above: Performed By: #### C #### [facility] [address] [place], [id number] Care Plan Noteon 05-16-2023 Food And Beverage Manager Authentication Interface Message Text Problem: Routine Care: Goal: Patient care will be managed and maintained throughout hospital stay per unit specific routine care procedure Outcome: Progressing Problem: Impaired Skin Integrity: Goal: Acheive wound healing without signs and symptoms of infection Outcome: Progressing Problem: Altered Elimination: Goal: Establishment of normal bowel function will be achieved and maintained Outcome: Progressing Problem: Impaired Mobility: Goal: Ability to tolerate increased activity will improve and be maintained Outcome: Progressing Goal: Ability to maintain or regain baseline function will be acheived Outcome: Progressing Problem: Activity Intolerance: Goal: Demonstrate progressive return to baseline activity level Outcome: Progressing Problem: VTE Prophylaxis: Goal: Will be free of DVT Outcome: Progressing Problem: Fluid and Electrolyte Imbalance: Goal: Adequate fluid and electrolyte balance will be achieved and maintained Outcome: Progressing Problem: Anxiety: Goal: Level of anxiety will decrease Outcome: Progressing Problem: Altered Neurological Status: Goal: Optimal neurological status will be maintained or regained Outcome: Progressing Problem: Alteration in Tissue Perfusion: Peripheral: Goal: Promote adequate perfusion and limit complications for a person experiencing or is at risk for inadequate tissue perfusion in peripheral circulation Outcome: Progressing Problem: Alteration in Respiratory Status: Goal: Achieve Optimal Respiratory Status with Minimal Ventilatory/Oxygen Support Outcome: Progressing Problem: Acute Pain: Goal: Ability to identify pain intensity on a pain scale and rate it consistently will be achieved and maintained Outcome: Progressing Goal: Understanding of proper administration and use of medicines will be achieved Outcome: Progressing Goal: Acceptable level of pain which allows the patient to achieve functional outcome goals Outcome: Progressing Problem: Safety: Goal: Patient will remain free of falls during hospital stay Outcome: Progressing Goal: Free from injury during hospitalization Outcome: Progressing Problem: Discharge Planning: Goal: Discharge needs of the adult patient will be met Outcome: Progressing Problem: Routine Care: Goal: Patient care will be managed and maintained throughout hospital stay per unit specific routine care procedure Outcome: Progressing Problem: Acute Pain: Goal: Ability to identify pain intensity on a pain scale and rate it consistently will be achieved and maintained Outcome: Progressing Problem: Safety: Goal: Patient will remain free of falls during hospital stay Hourly rounding performed. Outcome: Progressing Normal [facility] GLUCOSE, FINGERSTICK-IN OFFI CEon 05-16-2023 Glucose [Mass/Vol] 132 mg/dL High 80-116 [facility] Comment on above: Performed By: #### [id number] ####NURSING GLUCOSE [id number] [place], [address] Glucose [Mass/Vol] 156 mg/dL High 80-116 [facility] Comment on above: Performed By: #### C R BGA, CR GLU, CR ICA, CR COOX, CR LYTES, LACT #### [facility] [address] [place] [address], Glucose [Mass/Vol] 134 mg/dL High 80-116 [facility] Comment on above: Performed By: #### C R BGA, CR GLU, CR ICA, CR COOX, CR LYTES, LACT #### [facility] [address] [place] [address], Glucose [Mass/Vol] 142 mg/dL High 80-116 [facility] Comment on above: Performed By: #### C BC #### [facility] [address] [place] [address], LEVETIRACETAMon 05-16-2023 LEVETIRA 22.4 ug/mL Normal 6.0-46.0 [facility] Comment on above: Performed By: #### C R BGA, CR GLU, CR ICA, CR COOX, CR LYTES, LACT #### [facility] [address] [place] [address], MAGNESIUMon 05-16-2023 Magnesium [Mass/Vol] 2.1 mg/dL Normal 1.6-2.8 [facility] Comment on above: Performed By: #### C BC #### [facility] [address] [place] [address], Progress Noteson 05-16-2023 Food And Beverage Manager Authentication Interface Message Text /SCOTTIE Valles notified of critical Hematocrit and Hemoglobin value of 18.8 and 6.3. /SCOTTIE Valles read back critical results. New orders received. Normal [facility] Authentication Interface Message Text ----- GENERAL INFORMATION ---- TRAUMA FLOOR - STAFF NOTE Patient Name: Kate Hagen Admission Date: 05/13/2023 Patient seen and examined on 05/16/23 --- INTERVAL HISTORY/EVENTS - Background: Kate Hagen is a 72 year old female with a PMHx of atrial fibrillation (on Eliquis - ran out 7 days prior to fall), DM2, Margarita, neuropathy, idiopathic epilepsy (does 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 Patient tripped over large package of toilet paper at home, causing her to fall and strike her face. OSH imaging showed right hip fracture, L mandibular fracture with TMJ dislocation. Transferred to [facility] for operative intervention. Hospital Course: 05/13/23: Transferred to [facility] for R hip fracture, L mandibular fracture following mechanical FFS. Ortho and OMFS consulted. 05/14/23: OR with Ortho for R CMN (Dr. Live). Geriatrics consult for frequent falls in the home, polypharmacy. 05/15/23: Known afib, rates up to 120 bpm. 5 mg metoprolol given per Trauma resident. Thought to be related to held metoprolol dose on day of surgery, as well as volume deficit as patient's home diuretics were given and recent echo suggested hyperdynamic EF (75%) and RAP < 5. 1L fluid given throughout the day for worsening ELI. Adequate PO intake, kim removed. 24 Hour Events: No acute events overnight. Hemoglobin dropped to 6.3 requiring 1 unit PRBCs. Continues to tolerate PO intake and pass flatus; reports low urine output since last evening. Bladder scan discussed with RN. States pain today is a 7-8/10. Compressive wrap removed from leg. Labs: Na 136, K 3.9 (not replaced due to ELI), mag 2.1. Worsening renal function, BUN 61, creatinine now 2.36 from 2.26. Drop in hemoglobin from 8 to 6.3. 1 unit PRBCs ordered. Platelets remain stable. Vitals: Normotensive, systolics 102-124. HR 104-110, again suspect volume deficit. Sats 100% on home 3L NC. Tmax 98.2F. Intake: PO: 1140 mL IV: 1L LR bolus given, blood currently transfusing. Output: UOP: 600 mL, 1 occurrence documented following kim catheter removal BM: Last BM documented 05/15/23 (3x occurrences) PHYSICAL EXAM Vital Signs: Vital sign ranges over the past 24 hours (retrieved 05/16/2023 at 6:27 AM): Tmax (24 hours): 98.4 ???F (36.9 ???C) Pulse Av Min: 103 Max: 132 Systolic (24hrs), Av , Min:90 , Max:124 Diastolic (24hrs), Av, Min:54, Max:76 MAP (mmHg) Av.2 mmHg Min: 66 mmHg Max: 83 mmHg Resp Av.6 Min: 16 Max: 20 SpO2 Av.9 % Min: 97 % Max: 100 % 24 Hour Input/Output Intake/Output Summary (Last 24 hours) at 05/16/2023 0614 Last data filed at 05/16/2023 0300 Gross per 24 hour Intake 1140 ml Output 600 ml Net 540 ml PHYSICAL EXAM GENERAL: No acute distress, laying in bed watching television on entry into room NEURO: GCS 15, no focal deficit HEENT: Tenderness to L mandible, tolerating soft diet CARDIOVASCULAR: Rate and rhythm irregular; 105-115 on pulse oximetry. Radial/DP pulses remain palpable bilaterally. PULMONARY: Breathing easily on home 3L. Productive cough. No use of accessory muscles. ABDOMINAL: Soft, nontender. Chronic R-sided ventral hernia. EXTREMITIES: Moves all extremities, sensation intact. LONI wrap removed to better assess surgical site. [address]; scant amount of strike-through. Small, firm area to superior aspect of lower Aquacel dressing. Ice applied; thigh edematous. SKIN: Warm, dry LABORATORY RESULTS (LAST 24 HOURS) CBC/PT/INR WBC RBC Hgb Hct MCV RDW Plt PT aPTT INR 05/16/23 0321 9.3 2.04 6.3 18.8 92 14.2 217 05/16/23 0143 10.2 2.07 6.5 18.9 91 13.9 217 Basic Metabolic Panel None Fingerstick Glucose (last 72 hours) Glucose 05/15/23 2045 162 05/15/23 1642 171 05/15/23 1146 190 05/15/23 0745 149 05/14/23 2134 184 05/14/23 1605 166 05/14/23 1229 120 05/14/23 0826 143 IMAGING RESULTS (PERSONALLY REVIEWED) No new imaging following surgery. ------ ASSESSMENT AND PLAN --------- Diagnoses: Mechanical fall from standing R displaced IT fracture Left mandibular fracture with dislocated L TMJ joint Acute pain due to trauma Acute blood loss anemia Acute post-op pain Polypharmacy ELI on CKD Incidental Findings: None on imaging obtained at [facility] ([facility], 05/14/23) Plan: Neurological: Acute pain due to trauma, acute post-op pain. Hx (more content not included)... Normal [facility] RED BLOOD CELL COMPONENTon 0 05-16-2023 BB ORDER ITEM Product status info to follow Normal The [facility] Comment on above: Performed By: #### R EMILIANO ####S PATHOLOGY [id number] [place], [place], RED BLOOD CELL UNIT STATUSon 05-16-2023 BLOOD PRODUCT CODE [id number] Normal [facility] Comment on above: Performed By: #### C BC #### S PATHOLOG[facility] LABORATORY [address] [place] [address], BLOOD PRODUCT DESCRIPTION Red Blood Cells Normal [facility] Comment on above: Performed By: #### C BC #### S [facility] LABORATORY [address] [place] [address], BLOOD PRODUCT STATUS Transfused Normal [facility] Comment on above: Performed By: #### C BC #### S [facility] LAB[facility] [address] [place] [address], BLOOD PRODUCT UNIT INFO [id number] Normal [facility] Comment on above: Performed By: #### C BC #### S [facility] LAB[facility]ATORY [address] [place] [address], BLOOD PRODUCT UNIT TYPE 5100 Normal [facility] Comment on above: Result Comment: O Po s Performed By: #### C BC #### S [facility] LAB[facility]ORY [address] [place] [address], CROSSMATCH INTERPRETATION Compatible (E) Normal [facility] Comment on above: Performed By: #### C BC #### S [facility] LAB[facility]ATORY [address] [place] [address], VITAMIN D, 25-HYDROXYon 05-03 VITD25 54 ng/mL Normal 30-100 [facility] Comment on above: Order Comment: Defic ient : <20.0 ng/mLInsufficient : 20.0-29.9 ng/mLSufficient : 30.0 - 100.0 ng/mLPotential Toxicity : >100.0 ng/mL Performed By: #### V ITD25 ####[facility] [id number] [place], [place], BASIC METABOLIC PANELon 05-03 Anion gap [Moles/Vol] 19 mmol/L Normal 10-20 [facility] Comment on above: Performed By: #### C R BGA, CR GLU, CR ICA, CR COOX, CR LYTES, LACT #### [facility] [address] [place], [place], Calcium [Mass/Vol] 7.7 mg/dL Low 8.6-10.3 [facility] Comment on above: Result Comment: Note updated reference ranges. Performed By: #### C R BGA, CR GLU, CR ICA, CR COOX, CR LYTES, LACT #### [facility] [address] [place], [place], Chloride [Moles/Vol] 98 mmol/L Normal 98-107 [facility] Comment on above: Result Comment: Note updated reference ranges. Performed By: #### C R BGA, CR GLU, CR ICA, CR COOX, CR LYTES, LACT #### [facility] [address] [place] [address], CO2 [Moles/Vol] 22 mmol/L Normal 21-31 [facility] Comment on above: Result Comment: Note updated reference ranges. Performed By: #### C R BGA, CR GLU, CR ICA, CR COOX, CR LYTES, LACT #### [facility] [address] [place] [address], Creatinine [Mass/Vol] 2.26 mg/dL High 0.60-1.20 [facility] Comment on above: Result Comment: Note updated reference ranges. Performed By: #### C R BGA, CR GLU, CR ICA, CR COOX, CR LYTES, LACT #### [facility] [address], [place], ESTIMATED GFR (CKD-EPI) 22 mL/min/1.73sqm Low >=60 The [facility] Comment on above: Result Comment: 2020 CKD EPI Equation using Creatinine without Race Comment: Estimated glomerular filtration rate (eGFR) is calculated without a race coefficient. Values should be interpreted in the context of the patient's full clinical presentation. Reference: 1. Miguel Ángel C, Kushal M, Good DC, et al.. A Unifying Approach for GFR Estimation: Recommendations of the NKF-ASN Task Force on Reassessing the Inclusion of Race in Diagnosing Kidney Disease. [place] Journal of Kidney Diseases 202;79(2):268-88.e1. 2. N Engl J Med 1 Vol. 385 Issue 19 Pages 8613-3041 Performed By: #### C R BGA, CR GLU, CR ICA, CR COOX, CR LYTES, LACT #### [facility] [address] [place] [address], Glucose [Mass/Vol] 126 mg/dL High 74-109 [facility] Comment on above: Performed By: #### C R BGA, CR GLU, CR ICA, CR COOX, CR LYTES, LACT #### [facility] [address] [place] [address], Potassium [Moles/Vol] 4.0 mmol/L Normal 3.5-5.0 The [facility] Comment on above: Result Comment: Note updated reference ranges. Note updated reference ranges. Performed By: #### C R BGA, CR GLU, CR ICA, CR COOX, CR LYTES, LACT #### [facility] [address] [place] [address], Sodium [Moles/Vol] 135 mmol/L Low 136-145 [facility] Comment on above: Result Comment: Note updated reference ranges. Performed By: #### C R BGA, CR GLU, CR ICA, CR COOX, CR LYTES, LACT #### [facility] [address] [place] [address], Urea nitrogen [Mass/Vol] 52 mg/dL High 7-25 [facility] Comment on above: Result Comment: Note updated reference ranges. Performed By: #### C R BGA, CR GLU, CR ICA, CR COOX, CR LYTES, LACT #### [facility] [address] [place] [address], COMPLETE BLOOD COUNTon 05-15 Erythrocyte distribution width (RBC) [Ratio] 14.3 % Normal 11.5-14.5 The [facility] Comment on above: Performed By: #### C BC #### [facility] [address] [place] [address], Hematocrit (Bld) [Volume fraction] 23.8 % Low 36.0-46.0 [facility] Comment on above: Performed By: #### C BC #### [facility] [address] [place] [address], Hemoglobin (Bld) [Mass/Vol] 8.0 g/dL Low 12.0-15.0 [facility] Comment on above: Performed By: #### C BC #### [facility] [address] [place] [address], MCH (RBC) [Entitic mass] 31.0 pg Normal 26.0-34.0 [facility] Comment on above: Performed By: #### C BC #### [facility] [address] [place] [address], MCHC (RBC) [Mass/Vol] 33.8 g/dL Normal 32.0-35.9 The [facility] Comment on above: Performed By: #### C BC #### [facility] [address] [place] [address], MCV (RBC) [Entitic vol] 92 fL Normal 80-100 The [facility] Comment on above: Performed By: #### C BC #### [facility] [address] [place] [address], Platelet mean volume (Bld) [Entitic vol] 7.7 fL Normal 7.5-11.2 [facility] Comment on above: Performed By: #### C BC #### [facility] [address] [place] [address], Platelets (Bld) [#/Vol] 225 10*3/uL Normal 150-400 [facility] Comment on above: Performed By: #### C BC #### [facility] [address] [place] [address], RBC (Bld) [#/Vol] 2.60 10*6/uL Low 4.00-5.20 [facility] Comment on above: Performed By: #### C BC #### [facility] [address] [place] [address], WBC (Bld) [#/Vol] 10.3 10*3/uL Normal 4.5-11.5 [facility] Comment on above: Performed By: #### C BC #### [facility] [address] [place] [address], Care Plan Noteon 05-15-2023 Food And Beverage Manager Authentication Interface Message Text I was called to bedside for A-fib with RVR, patient HR 100-120, EKG shows a fib RVR at 119 BPM. Patient does have hx a fib, takes 50 mg metoprolol BID, next dose 9am. Patient BP was 115/76, instructed nurse to give 1 dose 5 mg IV push, and hold for HR < 100, systolic < 90. Patient otherwise asymptomatic. Will give 9 am PO dose of metopolol. Ramy Whitfield, DO Normal [facility] GLUCOSE, FINGERSTICK-IN OFFI CEon 05-15-2023 Glucose [Mass/Vol] 149 mg/dL High 80-116 [facility] Comment on above: Performed By: #### C R BGA, CR GLU, CR ICA, CR COOX, CR LYTES, LACT #### [facility] [address] [place] [address], Glucose [Mass/Vol] 190 mg/dL High 80-116 [facility] Comment on above: Performed By: #### C R BGA, CR GLU, CR ICA, CR COOX, CR LYTES, LACT #### [facility] [address] [place] [address], Glucose [Mass/Vol] 171 mg/dL High 80-116 [facility] Comment on above: Performed By: #### [id number] #### NURSING GLUCOSE PROGRAM [address] [place] [address], Glucose [Mass/Vol] 162 mg/dL High 80-116 [facility] Comment on above: Performed By: #### 8 [id number] #### NURSING GLUCOSE PROGRAM [address] [place] [address], MAGNESIUMon 05-15-2023 Magnesium [Mass/Vol] 1.4 mg/dL Low 1.6-2.8 [facility] Comment on above: Performed By: #### C R BGA, CR GLU, CR ICA, CR COOX, CR LYTES, LACT #### [facility] [address] [place], [phone] Progress Noteson 05-15-2023 Food And Beverage Manager Authentication Interface Message Text ----- GENERAL INFORMATION ---- TRAUMA FLOOR - STAFF NOTE Patient Name: Kate Hagen Admission Date: 05/13/2023 Patient seen and examined on 05/15/23 --- INTERVAL HISTORY/EVENTS - Background: Kate Hagen is a 72 year old female with a PMHx of atrial fibrillation (on Eliquis - ran out 7 days prior to fall), DM2, Margarita, neuropathy, idiopathic epilepsy (does 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 Patient tripped over large package of toilet paper at home, causing her to fall and strike her face. OSH imaging showed right hip fracture, L mandibular fracture with TMJ dislocation. Transferred to [facility] for operative intervention. Hospital Course: 05/13/23: Transferred to [facility] for R hip fracture, L mandibular fracture following mechanical FFS. Ortho and OMFS consulted. 05/14/23: OR with Ortho for R CMN (Dr. Live). Geriatrics consult for frequent falls in the home, polypharmacy. 24 Hour Events: No events overnight. On review of VS, patient noted to be tachycardic with rates in 120s. EKG ordered, known history of persistent atrial fibrillation. Atrial fibrillation with rapid ventricular response confirmed on EKG, though patient remained HDS with acceptable BP. Trauma resident paged per RN, 5 mg IVP metoprolol ordered. 500 mL fluid ordered previously this morning due to suspected volume deficit given worsening ELI, drop in hemoglobin, administration of home diuretics pre-operatively, and hyperdynamic LV on echocardiogram. HR improved following above interventions. Otherwise, patient reporting consistent 5-6/10 on pain scale post-operatively to RLE. Tolerating PO intake with soft diet, passing flatus. Kim catheter currently in place, plan to remove today. Labs: Na 135, K 4, mag 1.4 (replaced with 4g IVPB). Bump in creatinine to 2.26 (1.8). No leukocytosis, hemoglobin 8 (10). Platelets 225. Vitals: Tachycardic from 113-120 post-op, EKG ordered. BP 92/74 to 122/58 post-op. Sats appropriate on home 3L NC. Tmax 98.5F. Intake: PO: 430 mL IV: 1977.5 mL IVPB: 150 mL Output: UOP: 1950 mL (kim catheter) BM: Last BM documented GLAZIER SUPERVISOR PHYSICAL EXAM Vital Signs: Vital sign ranges over the past 24 hours (retrieved 05/15/2023 at 6:21 AM): Tmax (24 hours): 98.5 ???F (36.9 ???C) Pulse Av.3 Min: 82 Max: 120 Systolic (24hrs), Av , Min:92 , Max:137 Diastolic (24hrs), Av, Min:57, Max:82 MAP (mmHg) Av.3 mmHg Min: 67 mmHg Max: 95 mmHg Resp Av.2 Min: 16 Max: 20 SpO2 Av.6 % Min: 96 % Max: 100 % 24 Hour Input/Output Intake/Output Summary (Last 24 hours) at 05/15/2023 0621 Last data filed at 05/15/2023 0600 Gross per 24 hour Intake 2557.5 ml Output 1950 ml Net 607.5 ml PHYSICAL EXAM GENERAL: No acute distress, laying in bed. Awake upon entry into room. NEURO: GCS 15, no focal deficits. HEENT: L-sided mandibular pain CARDIOVASCULAR: Improvement in HR to 60s; rhythm remains irregular. No peripheral edema appreciated. Palpable 1+ radial/DP pulses bilaterally. PULMONARY: Breathing easily on home 3L NC. No use of accessory muscles. Symmetric chest rise. ABDOMINAL: Soft, non-tender, non-distended EXTREMITIES: Moves all extremities to command, sensation intact. Splint placed post-op per Ortho from R foot through R proximal R femur. Small portion of Aquacel seen on lateral aspect of hip, no obvious strike-through or bruising. Compartments soft when palpated through splint. SKIN: Warm, dry LABORATORY RESULTS (LAST 24 HOURS) CBC/PT/INR WBC RBC Hgb Hct MCV RDW Plt PT aPTT INR 05/15/23 0203 10.3 2.60 8.0 23.8 92 14.3 225 05/14/23 1428 10.0 31.0 Basic Metabolic Panel Na K Cl CO2 Gap Glu BUN Cr Ca Mg PO4 05/15/23 0203 1.4 05/15/23 0203 135 Comment: Note updated reference ranges. 4.0 Comment: Note updated reference ranges. Note updated reference ranges. 98 Comment: Note updated reference ranges. 22 Comment: Note updated reference ranges. 19 126 52 Comment: Note updated reference ranges. 2.26 Comment: Note updated reference ranges. 7.7 Comment: Note updated reference ranges. 05/14/23 1428 146 05/14/23 1428 135 3.2 100 Fingerstick Glucose (last 72 hours) Glucose 05/14/23 2134 184 01/12/24 1605 166 05/14/23 1229 120 05/14/23 0826 143 IMAGING RESULTS (PERSONALLY REVIEWED) No new imaging following surgery. ------ ASSESSMENT AND PLAN ------- (more content not included)... Normal [facility] ABO RH TYPEon 05-14-2023 ABO and Rh group Nom (Bld) Blood group O Rh(D) positive Normal [facility] Comment on above: Performed By: #### C R BGA, CR GLU, CR ICA, CR COOX, CR LYTES, LACT #### [facility] [address] [place] [address], [id number] AdmissionCareon 05-14-2023 Food And Beverage Manager Authentication Interface Message Text AdmissionCare Guideline: Hip Fracture, Inpatient Based on the indications selected for the patient, the bed status of Admit to Inpatient was determined to be MET The following indications were selected as present at the time of evaluation of the patient: - Hip fractureOperative Status Criteria selected: Inpatient AdmissionCare documentation entered by: Cira Hernández [facility] Facile System, 27th edition, Copyright ??? 2022 [employer] [facility] All Rights Reserved. [id number]:12:[id number]:00 Normal [facility] Anesthesia Postprocedure Stefani luationon 05-14-2023 Food And Beverage Manager Authentication Interface Message Text Anesthesia Postoperative Assessment: Vital Signs (most recent): BP 117/60 (BP Location: right arm) Pulse 82 Temp 36.6 ???C (97.9 ???F) (Oral) Resp 19 Ht 5' 5 (1.651 m) Wt 144 lb 6.4 oz (65.5 kg) SpO2 98% BMI 24.03 kg/m??? Anesthesia Post Evaluation Level of consciousness: awake Post-procedure exam normal. Body temperature, hydration status, PONV and pain evaluated and addressed. Pain management: adequate Hydration status: normal PONV:No nausea/vomiting reported Cardiopulmonary status stable Respiratory status: acceptable Cardiovascular status: acceptable ANESTHESIA NOTABLE EVENTS: No notable events documented. Normal [facility] Anesthesia Preprocedure Roula armstrong 05-14-2023 Food And Beverage Manager Authentication Interface Message Text ASA: 4 Past Medical History and Review of Systems Pulmonary (+) sleep apnea, shortness of breath (on 3 liters baseline oxygen ) Comment: Emphysema 04-30-23: FINDINGS: LUNGS: 3 adjacent nodules within right lower lobe superior segment adjacent posterior wall, largest is 7 mm. Mild bronchiectasis within lung bases bilaterally. PLEURA: No mass, effusion, or pneumothorax. VASCULATURE: No abnormality. SE: No mass or pathologic adenopathy. MEDIASTINUM: No mass or pathologic adenopathy. CARDIAC: Atherosclerotic coronary artery disease and valve calcifications. No significant enlargement or pericardial effusion. AORTA: No aneurysm or dissection. CHEST WALL: No mass or axillary adenopathy BONES: No bone lesion or fracture. LIMITED ABDOMEN: Bilateral adrenal masses, 4.7 cm on right, 3.4 cm on left with scattered areas of fat density favoring benign etiology. Limited images of the upper abdomen. 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 Left ventricular systolic function is [...] 15 mmHg, aortic valve area measured 1.2 cm???, this is consistent with mild to moderate aortic stenosis. Acute combined systolic and diastolic CHF, NYHA class 3 (CMS/HCC); Nonintractable generalized idiopathic epilepsy without status epilepticus Essential hypertension Nonrheumatic aortic valve stenosis; Paroxysmal atrial fibrillation RVSP: 34.6 GI/Hepatic/Renal (+) GERD, renal disease CRI, liver disease (RASMUSSEN)nephrolithiasis Comment: Nonalcoholic steatohepatitis (RASMUSSEN); Benign hypertensive kidney disease with chronic kidney disease stage I through stage IV, or unspecified (CMS/HCC); Stage 3b chronic kidney disease Adrenal mass (CMS/HCC); GFR 29 today. Cr at baseline 1.8. Baseline GFR 35 per care everywhere. Heme/Other (+) anemia (9.4) Other ROS: 72 yo M here with T2DM, neuropahty, MARGARITA, epilepsy, emphysema, CHF, afib, CKD stage 3b, depression, anxiety presents to [facility] c/o right hip pain after falling. C. Diff + CTA head/neck: 1. No acute intracranial abnormality. 2. Displaced left mandibular condyle fracture with dislocated TMJ joint. 3. No significant stenosis, dissection, or aneurysm in the intracranial circulation. CT facial bones: PRELIM RESULT 1. Displaced left mandibular condyle fracture with dislocated left TMJ joint. 2. Paranasal sinus disease. XR right hip: Acute comminuted displaced right femoral intertrochanteric fracture. No right hip joint dislocation. No radiopaque foreign body. Degenerative change of the lumbar spine and lumbosacral joint. She admits to a ground level fall, denies loss of consciousness. She has had multiple falls over the last few weeks. She also states that she recently developed seizures. Physical Exam Airway TM distance: Adequate Micrognathia: Not present Jaw opening: Adequate Neck flexion: Adequate Dental PE (+) upper dentures, lower dentures and missing teeth Pulmonary Cardiovascular Abnormal rhythm Neuro Abnormal sensation Plan Attestation: Normal [facility] Anesthesia Transfer Of [facility] n 05-14-2023 Food And Beverage Manager Authentication Interface Message Text Patient taken to PACU. Patient was awake, comfortable and stable on arrival. Anesthesia Transfer of Care Note Past Medical History: History reviewed. No pertinent past medical history. Sleep Apnea/Positive STOP-BANG: No Problem List: Patient Active Problem List: H/O traumatic fracture [Z87.81] C. difficile colitis [A04.72] Type 2 diabetes mellitus with kidney complication, with long-term current use of insulin (HCC) [E11.29, Z79.4] Heart failure (HCC) [I50.9] Hypertension [I10] Closed displaced intertrochanteric fracture of right femur ([facility]) [S72141A] Past Surgical History: There is no previous surgical history on file. Allergies: Bee venom, Extra strength grapefruit, Grapefruit extract, Lanolin, Naproxen, and Pineapple Basic Operating Room Facts: Surgeon(s): Colt Live DO Anesthesiologist: Meng Bustillo MD; Oma Sneed MD MANAGER FIELD INVESTIGATIONS: Dale Whiteside APRN-WALI Instructor Modeling: Ramon Paez MD REDUCTION, OPEN, FEMUR, INTRAMEDULLARY RAMON (Right: Leg Upper) Intraoperative Events: No acute event ASA: 4 EBL: Not documented Urine Not documented Lactated Ringers and NaCl 0.9%: Fluid Totals (Filter: LR and NaCl 0.9% Medications Shown) Medication Calculated Total Lactated Ringers 800 mL / 1 bag Lactated Ringers 400 mL / 1 bag Cell Saver: Not documented Blood Volume Values: Blood Products None MTP Blood: MTP PRBC: Not documented MTP FFP: Not documented MTP PLT: Not documented MTP Cryo: Not documented MTP Whole Blood: Not documented Current Vasoactive Medications: {Vasoactive Medications: None Lines, Drains, Airways Peripheral IV Access: 05/13/23 20 gauge Anterior;Left Forearm Present on Transfer to Unit / Floor (Active) Site Assessment WNL;Dressing intact 05/14/23 0905 Infusion Status Port #1 Infusing;Patent 05/14/23 0905 Peripheral IV Access: 05/14/23 1357 18 gauge Right Hand (Active) Site Assessment WNL;Dressing intact 05/14/23 1357 Infusion Status Port #1 Infusing;Patent;Positive blood return 05/14/23 1357 Arterial Line: 05/14/23 Left (Active) Site Assessment WNL;Dressing intact 05/14/23 1351 Line Status WNL 05/14/23 1351 Airway Insertion Details [REMOVED] Advanced Airway: ETT, Oral;Cuffed #7 (Removed) 05/14/23 1339 Pre-Oxygenation/ Induction: Mask Rapid Sequence Induction?: Mask Ventilation: Easy;Two-person Blade Type: Mac Blade Size: 3.5 Visualization: Grade 1 Airway Type: ETT, Oral;Cuffed Airway Size: #7 Post Insertion Assessment: Confirmation: Equal bilateral breath sounds, CO2 confirmed # Attempts >1: Special Equipment: Present on Admission?: Previously Removed / Not Present: Removal Reason: Not Removed at Discharge: Removed 05/14/23 1550 Location (cm) 19 05/14/23 1339 Measured from: Other (comment) 05/14/23 1339 Secured via: Taped 05/14/23 1339 Site Assessment WNL 05/14/23 1339 All non-working IVs have been removed: N/A Laboratory Data: CBC (last 3 years, up to 5 values) WBC RBC Hgb Hct MCV RDW Plt 05/14/23 1428 10.0 31.0 05/13/23 2334 9.7 2.98 9.4 27.0 91 14.1 149 Basic Metabolic Panel Na K Cl CO2 Gap Glu BUN Cr Ca 05/14/23 1428 146 05/14/23 1428 135 3.2 100 05/13/23 2334 134 Comment: Note updated reference ranges. 3.5 Comment: Note updated reference ranges. Note updated reference ranges. 98 Comment: Note updated reference ranges. 23 Comment: Note updated reference ranges. 140 47 Comment: Note updated reference ranges. 1.80 Comment: Note updated reference ranges. 6.9 Comment: Note updated reference ranges. Basic Metabolic Panel Na K Cl CO2 Gap Glu BUN Cr Ca Mg PO4 05/14/23 1428 146 05/14/23 1428 135 3.2 100 05/13/23 2334 134 Comment: Note updated reference ranges. 3.5 Comment: Note updated reference ranges. Note updated reference ranges. 98 Comment: Note updated reference ranges. 23 Comment: Note updated reference ranges. 140 47 Comment: Note updated reference ranges. 1.80 Comment: Note updated reference ranges. 6.9 Comment: Note updated reference ranges. INR (no units) Date Value 05/13/2023 1.30 (H) No result for BNP LFT's (last 3 years, up to 5 values) None Arterial Blood Gases T Site Mode LPM FIO2 pH pCO2 pO2 Sat Base Ex HCO3- A-a 05/14/23 1428 23 05/14/23 1428 7.349 42.4 187 99.0 -2.2 23 Hand off Completed: Yes 1. The patient was identified. 2. Pertinent medical history was relayed. 3. A brief discussion was had about any pertinent surgical/ procedural issues. 4. Intraoperative/ anesthetic management issue and concerns were discussed. 5. Plans for the early post-operative period relayed. 6. An opportunity for questions and acknowledgment of understanding of the report was received. Ramon Paez MD Normal [facility] BASIC METABOLIC PANELon 05-03 Anion gap [Moles/Vol] 17 mmol/L Normal 10-20 [facility] Comment on above: Performed By: #### C R BGA, CR GLU, CR ICA, CR COOX, CR LYTES, LACT #### [facility] [address] [place] [address], Calcium [Mass/Vol] 6.9 mg/dL Low 8.6-10.3 [facility] Comment on above: Result Comment: Note updated reference ranges. Performed By: #### C R BGA, CR GLU, CR ICA, CR COOX, CR LYTES, LACT #### [facility] [address] [place] [address], Chloride [Moles/Vol] 98 mmol/L Normal 98-107 [facility] Comment on above: Result Comment: Note updated reference ranges. Performed By: #### C R BGA, CR GLU, CR ICA, CR COOX, CR LYTES, LACT #### [facility] [address] [place] [address], CO2 [Moles/Vol] 23 mmol/L Normal 21-31 [facility] Comment on above: Result Comment: Note updated reference ranges. Performed By: #### C R BGA, CR GLU, CR ICA, CR COOX, CR LYTES, LACT #### [facility] [address] [place] [address], Creatinine [Mass/Vol] 1.80 mg/dL High 0.60-1.20 [facility] Comment on above: Result Comment: Note updated reference ranges. Performed By: #### C R BGA, CR GLU, CR ICA, CR COOX, CR LYTES, LACT #### [facility] [address] [place] [address], ESTIMATED GFR (CKD-EPI) 29 mL/min/1.73sqm Low >=60 [facility] Comment on above: Result Comment: 2020 CKD EPI Equation using Creatinine without Race Comment: Estimated glomerular filtration rate (eGFR) is calculated without a race coefficient. Values should be interpreted in the context of the patient's full clinical presentation. Reference: 1. Miguel Ángel Mercedes, Kushal M, Good DAVIS, et al.. A Unifying Approach for GFR Estimation: Recommendations of the NKF-ASN Task Force on Reassessing the Inclusion of Race in Diagnosing Kidney Disease. [place] Journal of Kidney Diseases 2021;79(2):268-88.e1. 2. N Engl J Med 2020 Vol. 385 Issue 19 Pages 2439-4197 Performed By: #### C R BGA, CR GLU, CR ICA, CR COOX, CR LYTES, LACT #### [facility] [address] [place] [address], Glucose [Mass/Vol] 140 mg/dL High 74-109 [facility] Comment on above: Performed By: #### C R BGA, CR GLU, CR ICA, CR COOX, CR LYTES, LACT #### [facility] [address] [place] [address], Potassium [Moles/Vol] 3.5 mmol/L Normal 3.5-5.0 [facility] Comment on above: Result Comment: Note updated reference ranges. Note updated reference ranges. Performed By: #### C R BGA, CR GLU, CR ICA, CR COOX, CR LYTES, LACT #### [facility] [address] [place] [address], Sodium [Moles/Vol] 134 mmol/L Low 136-145 [facility] Comment on above: Result Comment: Note updated reference ranges. Performed By: #### C R BGA, CR GLU, CR ICA, CR COOX, CR LYTES, LACT #### [facility] [address] [place] [address], Urea nitrogen [Mass/Vol] 47 mg/dL High 7-25 [facility] Comment on above: Result Comment: Note updated reference ranges. Performed By: #### C R BGA, CR GLU, CR ICA, CR COOX, CR LYTES, LACT #### [facility] [address] [place] [address], BLOOD GAS, ARTERIALon 2023 CR JAIRO -2.2 mmol/L Low -2.0-3.0 [facility] Comment on above: Performed By: #### C R BGA, CR GLU, CR ICA, CR COOX, CR LYTES, LACT #### [facility] [address] [place] [address], CR PCO2 42.4 mm Hg Normal 35.0-45.0 The [facility] Comment on above: Performed By: #### C R BGA, CR GLU, CR ICA, CR COOX, CR LYTES, LACT #### [facility] [address] [place] [address], CR PHA 7.349 Low 7.350-7.450 [facility] Comment on above: Performed By: #### C R BGA, CR GLU, CR ICA, CR COOX, CR LYTES, LACT #### [facility] [address] [place] [address], CR PO2 187 mm Hg High 80-100 [facility] Comment on above: Performed By: #### C R BGA, CR GLU, CR ICA, CR COOX, CR LYTES, LACT #### [facility] [address] [place] [address], HCO3 (Bld) [Moles/Vol] 23 mmol/L Normal 21-28 e [facility] Comment on above: Performed By: #### C R BGA, CR GLU, CR ICA, CR COOX, CR LYTES, LACT #### [facility] [address] [place] [address], Oxygen saturation in Blood 99.0 % Normal 95.0-99.0 [facility] Comment on above: Performed By: #### C R BGA, CR GLU, CR ICA, CR COOX, CR LYTES, LACT #### [facility] [address] [place] [address], Blood Attestationon 05-14-19 Food And Beverage Manager Authentication Interface Message Text Blood Attestation: ATTESTATION OF INFORMED CONSENT FOR BLOOD: The transfusion of blood and/or blood components were discussed with the patient and/or legal event representative. The risks, benefits and alternatives were reviewed. Questions regarding blood transfusions were answered. The patient /or the patient's legal event representative agree with the plan for transfusion of blood and/or blood components. Normal [facility] Brief Operative Noteon 05-14 Food And Beverage Manager Authentication Interface Message Text Brief Operative Note MAIN OR 02 Kate Hagen 72 year old female Surgical Contact Serial Number: [id number] Preoperative Diagnosis: Pre-op Diagnosis * Closed displaced intertrochanteric fracture of right femur, initial encounter ([facility]) [S72.141A] Postoperative Diagnosis: * Closed displaced intertrochanteric fracture of right femur, initial encounter ([facility]) [S72.141A] Procedures: Cephalomedullary ramon right femur Surgeon(s): Surgeon(s): Colt Live DO Staff: Nurse: Cindy Lovett RN Scrub: Carole Snyder; Federico Buckner Tariff Inspector Nurse: Cierra Marquez RN Stock Raiser: Karena Worthy Mash Filter Press Operator: Cathy Juárez MD; Gregorio Cho MD Anesthesia: General Anesthesiologist: Meng Bustillo MD; Oma Sneed MD MANAGER FIELD INVESTIGATIONS: Dale Whiteside APRN-MANAGER FIELD INVESTIGATIONS Instructor Modeling: Ramon Paez MD Specimen(s): * No specimens in log * Estimated Blood Loss: greater than 10 cc -- Esitmated Amount: 50 ccs Lines/Drains: Peripheral IV Access: 05/13/23 20 gauge Anterior;Left Forearm Present on Transfer to Unit / Floor (Active) Site Assessment WNL;Dressing intact 05/14/23 09 Infusion Status Port #1 Infusing;Patent 05/14/23 09 Peripheral IV Access: 05/14/23 1357 18 gauge Right Hand (Active) Site Assessment WNL;Dressing intact 05/14/23 135 Infusion Status Port #1 Infusing;Patent;Positive blood return 05/14/23 135 Temporarily Retained Foreign Object: No Location: N/a Object: N/a Anticipated removal date: N/a Findings: Ortho Fracture Complications: None Status at end of surgery: Stable Activity: WBAT RLE in soft dressing Surgical wound class: Yes, wound was clean. Patient Class: Inpatient. Is this a patient scheduled as an outpatient that needs to be admitted as an inpatient? No Plan: - Pain meds - Bowel regimen - Ancef - Vitamin D / Calcium - 6 weeks 81mg BID ASA or equivalent - Readmit to Trauma from PACU - Ortho trauma will continue to follow Dr. Colt Live was present in the OR for the critical portion of the procedure and procedure sign-out. Signed by Gregorio Cho MD 05/14/2023 3:27 PM Normal [facility] CALCIUM, IONIZEDon CR ICA 1.00 mmol/L Low 1.15-1.33 [facility] Comment on above: Result Comment: This test was developed, and its performance characteristics determined by the Department of Pathology of The [facility]. It has not been cleared or approved by the FDA. This test is used for clinical purposes only. Performed By: #### C R BGA, CR GLU, CR ICA, CR COOX, CR LYTES, LACT #### [facility] [address] [place] [address], CO-OXIMETERon 05-14-2023 CARBOXYHEMOGLOBIN 1.0 % Normal 0.5-1.5 [facility] Comment on above: Performed By: #### C R BGA, CR GLU, CR ICA, CR COOX, CR LYTES, LACT #### [facility] [address] [place] [address], CR HBMET 1.5 % Normal 0.0-1.5 [facility] Comment on above: Performed By: #### C R BGA, CR GLU, CR ICA, CR COOX, CR LYTES, LACT #### [facility] [address] [place] [address], Hematocrit (Bld) [Volume fraction] 31.0 % Low 38.0-46.0 [facility] Comment on above: Performed By: #### C R BGA, CR GLU, CR ICA, CR COOX, CR LYTES, LACT #### [facility] [address] [place] [address], Hemoglobin (Bld) [Mass/Vol] 10.0 g/dL Low 12.0-16.0 [facility] Comment on above: Performed By: #### C R BGA, CR GLU, CR ICA, CR COOX, CR LYTES, LACT #### [facility] [address] [place] [address], OXYHEMOGLOBIN 96.5 % Normal 94.0-98.0 [facility] Comment on above: Performed By: #### C R BGA, CR GLU, CR ICA, CR COOX, CR LYTES, LACT #### [facility] [address] [place] [address], COMPLETE BLOOD COUNTon 05-14 Erythrocyte distribution width (RBC) [Ratio] 14.1 % Normal 11.5-14.5 [facility] Comment on above: Performed By: #### C BC #### [facility] [address] [place] [address], Hematocrit (Bld) [Volume fraction] 27.0 % Low 36.0-46.0 [facility] Comment on above: Performed By: #### C BC #### [facility] [address] [place] [address], Hemoglobin (Bld) [Mass/Vol] 9.4 g/dL Low 12.0-15.0 [facility] Comment on above: Performed By: #### C BC #### [facility] [address] [place] [address], MCH (RBC) [Entitic mass] 31.5 pg Normal 26.0-34.0 [facility] Comment on above: Performed By: #### C BC #### [facility] [address] [place] [address], MCHC (RBC) [Mass/Vol] 34.8 g/dL Normal 32.0-35.9 [facility] Comment on above: Performed By: #### C BC #### [facility] [address] [place] [address], MCV (RBC) [Entitic vol] 91 fL Normal 80-100 [facility] Comment on above: Performed By: #### C BC #### [facility] [address] [place] [address], Platelet mean volume (Bld) [Entitic vol] 7.1 fL Low 7.5-11.2 [facility] Comment on above: Performed By: #### C BC #### [facility] [address] [place], [place], Platelets (Bld) [#/Vol] 149 10*3/uL Low 150-400 [facility] Comment on above: Performed By: #### C BC #### [facility] [address] [place], [place], RBC (Bld) [#/Vol] 2.98 10*6/uL Low 4.00-5.20 [facility] Comment on above: Performed By: #### C BC #### [facility] [address], [place], WBC (Bld) [#/Vol] 9.7 10*3/uL Normal 4.5-11.5 [facility] Comment on above: Performed By: #### C BC #### [facility] [address], [place], CT FACIAL BONES W/O CONTRAST on 05-14-2023 CT FACIAL BONES W/O CONTRAST EXAMINATION: CT FACIAL BONES W/O CONTRAST 05/14/2023 03:28 AM CLINICAL HISTORY: Trauma, blunt COMPARISON: None TECHNIQUE: Thin isotropic axial images were obtained through the maxillofacial area without intravenous contrast. 2D sagittal and coronal reconstructions were obtained from the axial data. FINDINGS: Facial bones: No acute facial fracture. Mandible and TMJs: Displaced left mandibular condyle fracture with dislocated left TMJ joint. Orbits: No globe rupture or retrobulbar hematoma. Sinuses: Mild paranasal sinus mucosal thickening. Right maxillary sinus fluid. IMPRESSION: 1. Displaced left mandibular condyle fracture with dislocated left TMJ joint. 2. Paranasal sinus disease. MACRO: None Normal [facility] CTA HEAD W/on 05-14-2023 CTA HEAD W/ EXAMINATION: CTA HEA D W/ 05/14/2023 03:28 AM CLINICAL HISTORY: Trauma, blunt; and mandible fx COMPARISON: None TECHNIQUE: CT angiogram of the head with intravenous contrast. Thin isotropic axial imaging was obtained through the brain during rapid IV contrast administration for evaluation of the vessels. Multiplanar and 3D maximum intensity projection reformulations were created from the raw CT data which were interpreted in conjunction with the axial images to render the findings listed below. Before infusion of intravenous contrast, radiology personnel investigated the possibility of an allergic history and any history of reaction to iodinated contrast material. Contrast Protocol: Omnipaque 350 [>or =75lb] 75ml [<75 lb] 1 ml per 1 lb. INTRA-PROCEDURE MEDS: iohexol (OMNIPAQUE) 350 MG/ML injection 75 mL Route: Intravenous Push FINDINGS: CT BRAIN: No mass or acute hemorrhage. No evidence of acute infarct. Mild generalized brain parenchymal volume loss with normal caliber ventricles. Scattered patchy foci of white matter hypoattenuation, most likely mild chronic microvascular angiopathy. Mucosal thickening of paranasal sinuses with small volume of right maxillary fluid. The remainder of the skull, paranasal sinuses and tympanomastoid cavities are normal. Displaced left mandibular condyle fracture with dislocated TMJ joint. CTA HEAD: Anterior Circulation: The internal carotid arteries are patent. ACAs and MCAs are patent. No vessel cutoff, aneurysm or focal hemodynamically significant stenosis. Vertebrobasilar Circulation: Intracranial vertebral arteries, PICA/AICA branches, basilar artery, SCAs and med spa manager are patent. No vessel cutoff, aneurysm or focal hemodynamically significant stenosis. IMPRESSION: 1. No acute intracranial abnormality. 2. Displaced left mandibular condyle fracture with dislocated TMJ joint. 3. No significant stenosis, dissection, or aneurysm in the intracranial circulation. MACRO: None Normal [facility] Care Plan Noteon 05-14-2023 Food And Beverage Manager Authentication Interface Message Text Problem: Routine Care: Goal: Patient care will be managed and maintained throughout hospital stay per unit specific routine care procedure Outcome: Progressing Problem: Impaired Skin Integrity: Goal: Acheive wound healing without signs and symptoms of infection Outcome: Progressing Problem: Altered Elimination: Goal: Establishment of normal bowel function will be achieved and maintained Outcome: Progressing Problem: Impaired Mobility: Goal: Ability to tolerate increased activity will improve and be maintained Outcome: Progressing Goal: Ability to maintain or regain baseline function will be acheived Outcome: Progressing Problem: Activity Intolerance: Goal: Demonstrate progressive return to baseline activity level Outcome: Progressing Problem: VTE Prophylaxis: Goal: Will be free of DVT Outcome: Progressing Note: Patient has SCDs intact and DVT prophylaxis ordered at this time to prevent blood clots. Problem: Fluid and Electrolyte Imbalance: Goal: Adequate fluid and electrolyte balance will be achieved and maintained Outcome: Progressing Problem: Anxiety: Goal: Level of anxiety will decrease Outcome: Progressing Problem: Altered Neurological Status: Goal: Optimal neurological status will be maintained or regained Outcome: Progressing Problem: Alteration in Tissue Perfusion: Peripheral: Goal: Promote adequate perfusion and limit complications for a person experiencing or is at risk for inadequate tissue perfusion in peripheral circulation Outcome: Progressing Problem: Alteration in Respiratory Status: Goal: Achieve Optimal Respiratory Status with Minimal Ventilatory/Oxygen Support Outcome: Progressing Problem: Acute Pain: Goal: Ability to identify pain intensity on a pain scale and rate it consistently will be achieved and maintained Outcome: Progressing Note: Patient consistently rates pain using numeric pain scale. Pain managed at this time through PRN medications. Goal: Understanding of proper administration and use of medicines will be achieved Outcome: Progressing Goal: Acceptable level of pain which allows the patient to achieve functional outcome goals Outcome: Progressing Problem: Safety: Goal: Patient will remain free of falls during hospital stay Outcome: Progressing Note: Patient has room close to nurse's station, call light within reach, bed alarm intact, encouraged not to get out of bed without assistance. Goal: Free from injury during hospitalization Outcome: Progressing Problem: Discharge Planning: Goal: Discharge needs of the adult patient will be met Outcome: Progressing Normal [facility] [employer] Authentication Interface Message Text Trauma Surgery Benefits of contrast outweigh risks for CT Neck in setting of recent trauma. GFR 29 today. Cr at baseline 1.8. Baseline GFR 35 per care everywhere. On LR while NPO. Not on dialysis. Cira Hernández MD Resident Physician Trauma Surgery Pager: [phone] Normal [facility] Interface Message Text Clear for surgery Cira Hernández MD Resident Physician Trauma Surgery Pager: [phone] Normal [facility] Interface Message Text Problem: Routine Care: Goal: Patient care will be managed and maintained throughout hospital stay per unit specific routine care procedure Outcome: Progressing Note: Patient rounded on per unit protocol and encouraged to use call cesar for assistance Problem: Impaired Skin Integrity: Goal: Acheive wound healing without signs and symptoms of infection Outcome: Progressing Problem: Altered Elimination: Goal: Establishment of normal bowel function will be achieved and maintained Outcome: Progressing Problem: Impaired Mobility: Goal: Ability to tolerate increased activity will improve and be maintained Outcome: Progressing Goal: Ability to maintain or regain baseline function will be acheived Outcome: Progressing Problem: Activity Intolerance: Goal: Demonstrate progressive return to baseline activity level Outcome: Progressing Problem: VTE Prophylaxis: Goal: Will be free of DVT Outcome: Progressing Problem: Fluid and Electrolyte Imbalance: Goal: Adequate fluid and electrolyte balance will be achieved and maintained Outcome: Progressing Problem: Anxiety: Goal: Level of anxiety will decrease Outcome: Progressing Problem: Altered Neurological Status: Goal: Optimal neurological status will be maintained or regained Outcome: Progressing Problem: Alteration in Tissue Perfusion: Peripheral: Goal: Promote adequate perfusion and limit complications for a person experiencing or is at risk for inadequate tissue perfusion in peripheral circulation Outcome: Progressing Problem: Alteration in Respiratory Status: Goal: Achieve Optimal Respiratory Status with Minimal Ventilatory/Oxygen Support Outcome: Progressing Problem: Acute Pain: Goal: Ability to identify pain intensity on a pain scale and rate it consistently will be achieved and maintained Outcome: Progressing Goal: Understanding of proper administration and use of medicines will be achieved Outcome: Progressing Goal: Acceptable level of pain which allows the patient to achieve functional outcome goals Outcome: Progressing Problem: Safety: Goal: Patient will remain free of falls during hospital stay Outcome: Progressing Goal: Free from injury during hospitalization Outcome: Progressing Problem: Discharge Planning: Goal: Discharge needs of the adult patient will be met Outcome: Progressing Normal [facility] 05-14-2023 Food And Beverage Manager Authentication Interface Message Text ----- Attestation signed by Colt Live DO at 05/14/2023 7:19 PM Teaching Physician Note: I saw and evaluated the patient. I personally obtained the kim and critical portions of the history and physical exam. I reviewed the resident's documentation and discussed the patient with the resident. I agree with the resident's medical decision making as documented in the resident's note. Pt seen and examined prior to surgery. Risk, benefits, alternatives and expected outcomes of surgery were discussed with the patient with risks including, but not limited to infection, wound complications, need for further surgery, nonunion, malunion, arthritis, loss of motion, blood loss, blood clot, pain, scarring, damage to nerves/vessels/nearby structures, need for blood product transfusion as well as other complications. They verbalized their understanding of this and would like to proceed with surgery. Colt Live, DO ----- Orthopaedic Surgery Consult H AND P Requesting Provider / Service: Trauma CC: Right hip pain HPI: 72 year old female with PMH of T2DM, neuropahty, MARGARITA, epilepsy, emphysema, CHF, afib, CKD stage 3b, depression, anxiety presents to [facility] c/o right hip pain after falling. She was transferred from [facility]. She admits to a ground level fall after tripping over a large package. She denies loss of consciousness. She has had multiple falls over the last few weeks. She also states that she recently developed seizures. Patient participates during exam and history. Patient ambulates with a cane at baseline. Orthopedic Injuries: Right intertroch fracture, Displaced left mandibular condyle fracture with dislocated TMJ joint. Other Injuries: facial fracture No history of VTE. PMH: History reviewed. No pertinent past medical history. History reviewed. No pertinent surgical history. Social History Socioeconomic History Marital status: Tobacco Use Smoking status: Former Types: Cigarettes Smokeless tobacco: Never Vaping Use Vaping Use: Never used Substance and Sexual Activity Alcohol use: Not Currently Drug use: Never Sexual activity: Not Currently Social Determinants of Health Financial Resource Strain: Medium Risk (01/29/2023) Received from [facility] Overall Financial Resource Strain (CARDIA) Difficulty of Paying Living Expenses: Somewhat hard Food Insecurity: No Food Insecurity (04/20/2023) Received from [facility] Hunger Screening Within the past 12 months we worried whether our food would run out before we got money to buy more.: Never True Within the past 12 months the food we bought just didn't last and we didn't have money to get more.: Never True Transportation Needs: No Transportation Needs (01/29/2023) Received from [facility] PRAPARE - Transportation Lack of Transportation (Medical): No Lack of Transportation (Non-Medical): No Physical Activity: Inactive (01/29/2023) Received from [facility] Exercise Vital Sign Days of Exercise per Week: 0 days Minutes of Exercise per Session: 0 min Stress: Stress Concern Present (01/29/2023) Received from [facility] [employer] [place] of Occupational Health - Occupational Stress Questionnaire Feeling of Stress : To some extent Social Connections: Socially Isolated (01/29/2023) Received from [facility] Social Connection and Isolation Panel [NHANES] Frequency of Communication with Friends and Family: Once a week Frequency of Social Gatherings with Friends and Family: Three times a week Attends Shinto Services: Never Active Member of Clubs or Organizations: No Attends Club or Organization Meetings: Never Marital Status: Intimate Partner Violence: Not At Risk (01/29/2023) Received from [facility] Humiliation, Afraid, Rape, and Kick questionnaire Fear of Current or Ex-Partner: No Emotionally Abused: No Physically Abused: No Sexually Abused: No Allergies Allergen Reactions Bee Venom Swelling Extra Strength Grapefruit Rash Grapefruit Extract Rash Lanolin Naproxen Other Pineapple Other Current Facility-Administered Medications: bumetanide (BUMEX) tablet, 2 mg, Oral, 2x Daily Diuretic, Cira Hernández MD metoprolol (LOPRESSOR) tablet, 50 mg, Oral, 2x Daily, Cira Hernández MD, 50 mg at 05/13/23 2252 metolazone (ZAROXOLYN) tablet, 2.5 mg, Oral, Daily, Cira Hernández MD budesonide-formoterol (SYMBICORT) 80-4.5 MCG/ACT inhaler, 2 Puff, Inhalation, BID RT, Cira Hernández MD albuterol (PROVENTIL HFA) 108 (90 Base) MCG/ACT HFA inhaler, 2 Puff, Inhalation, Q4H RT, Cira Hernández MD, 2 Puff at 05/14/23 0051 cyclobenzaprine (FLEXERIL) tablet, 10 mg, Oral, 3x Daily PRN, Cira Hernández MD bumetanide (BUMEX) tablet, 1 mg, Oral, At Bedtime, Cira Hernández MD (more content not included)... Normal [facility] Food And Beverage Manager Authentication Interface Message Text Wound Ostomy Continence (WOC) Nursing Photo Consult Reason for Photo Consult: consult order placed with a reason of WOC Reason for Consult: pressure injury Assessment/Findings based on medical images provided and chart review: Pt has multiple skin tears to her upper arms s/p fall as well as some mild blanchable erythema to her sacral region. Primary RN confirms no pressure injuries present. See below for recs. Based on the medical images provided and chart review, [facility] Nursing recommendations are as follows: 1. B/L upper arm skin tears: Clean wound with soap and water and allow to dry. Then apply PolyMem directly to wound bed and secure with Kerlix wrap. Avoid applying adhesives/tape to skin if able. Change every 7 days and PRN. PolyMem will cleanse the wound, absorb drainage and keep a moist wound healing environment. PolyMem does not adhere to wound bed, so it will not cause trauma to wound bed upon removal, and it has a surfactant that will provide cleansing and may reduce discomfort. 2. Sacrum AND buttocks: Offload area at all times, as able, using 2 foam wedges. Clean wound/area with soap and water then dry. Apply SensiCare ointment twice daily. Pad area with Mepilex foam dressing and monitor area at regular intervals. If/when up in chair, please use a [employer] chair cushion (#[phone]) to assist with pressure redistribution. Continue using foam wedges to alternate right/left every hour if/when up in chair. Remove enough of the ointment to assess skin prior to reapplying ointment. (SensiCare contains petrolatum and zinc oxide). Patient is at an increased risk for skin breakdown due to frequent moisture exposure. If/when a break in the skin occurs, please re-consult [facility] Nursing for updated treatment recommendations. Additional Interventions for Skin Integrity: off load heels use pH-balanced cleanser for skin care moisture barrier maintain turning wedges turn/reposition every 2 hours keep HOB lower than 30 degrees if not contraindicated reposition hourly while in chair and use seat cushion pad and protect skin exposed to any medical devices minimize the use of padding in bed to one underpad only re-consult with [facility] Nursing Team as needed SEBASTIAN Reyna RN, CWOCN Normal [facility] Food And Beverage Manager Authentication Interface Message Text ----- Attestation signed by Meng Leos DMD, MD at 05/17/2023 12:33 PM Teaching Physician Note: I saw and evaluated the patient. I personally obtained the kim and critical portions of the history and physical exam. I reviewed the resident's documentation and discussed the patient with the resident. I agree with the resident's medical decision making as documented in the resident's note. Meng Leos DMD, MD ----- ELECTRIC POWER LINE REPAIRER CONSULTATION NOTE Attending requesting consult: Rey Carbajal DO Reason for consult: Mandibular Condyle Fracture HPI: Kate Hagen is a 72 year old female with PMHx significant for A-fib (Eliquis), HTN, T2DM (A1C = 5.6), Chronic back pain, currently under contact precautions d/t C. Diff colitis, is being consulted by the [facility] Facial trauma team for evaluation of a fracture to the L mandibular condyle. Patient states she sustained the trauma 1 week ago after suffering a GLF, went to an outside facility on 05/13/23 and was transferred to [facility]. Patient was taken to the OR today for surgical repair of a R femur fracture. Patient states that she is doing well, initially had jaw soreness after she had sustained the trauma butshe says that the pain has mostly subsided. Patient does not reports any issues with jaw opening or motion, intra/extraoral pain, or difficulty chewing or swallowing food. ROS: 14 point review of systems completed and all negative except as noted in HPI. Negative for fevers, chills. Negative for dizziness, syncope, visual problems Negative for ear pain Negative for blurry vision Negative for chest pain Negative for shortness of breath Negative for nausea. Negative for vomiting. Negative for diarrhea. Negative for dysuria Negative for muscle aches/pains Negative for rash History reviewed. No pertinent past medical history. History reviewed. No pertinent surgical history. No family history on file. Social History Socioeconomic History Marital status: Tobacco Use Smoking status: Former Types: Cigarettes Smokeless tobacco: Never Vaping Use Vaping Use: Never used Substance and Sexual Activity Alcohol use: Not Currently Drug use: Never Sexual activity: Not Currently Social Determinants of Health Financial Resource Strain: Medium Risk (01/29/2023) Received from [facility] Overall Financial Resource Strain (CARDIA) Difficulty of Paying Living Expenses: Somewhat hard Food Insecurity: No Food Insecurity (04/20/2023) Received from [facility] Hunger Screening Within the past 12 months we worried whether our food would run out before we got money to buy more.: Never True Within the past 12 months the food we bought just didn't last and we didn't have money to get more.: Never True Transportation Needs: No Transportation Needs (01/29/2023) Received from [facility] PRAPARE - Transportation Lack of Transportation (Medical): No Lack of Transportation (Non-Medical): No Physical Activity: Inactive (01/29/2023) Received from [facility] Exercise Vital Sign Days of Exercise per Week: 0 days Minutes of Exercise per Session: 0 min Stress: Stress Concern Present (01/29/2023) Received from [facility] [employer] [place] of Occupational Health - Occupational Stress Questionnaire Feeling of Stress : To some extent Social Connections: Socially Isolated (01/29/2023) Received from [facility] Social Connection and Isolation Panel [NHANES] Frequency of Communication with Friends and Family: Once a week Frequency of Social Gatherings with Friends and Family: Three times a week Attends Shinto Services: Never Active Member of Clubs or Organizations: No Attends Club or Organization Meetings: Never Marital Status: Intimate Partner Violence: Not At Risk (01/29/2023) Received from [facility] Humiliation, Afraid, Rape, and Kick questionnaire Fear of Current or Ex-Partner: No Emotionally Abused: No Physically Abused: No Sexually Abused: No Allergies: Allergies Allergen Reactions Bee Venom Swelling Extra Strength Grapefruit Rash Grapefruit Extract Rash Lanolin Naproxen Other Pineapple Other Current Facility-Administered Medications: oxyCODONE immediate release tablet, 2.5 mg, Oral, Q4H PRN OR oxyCODONE immediate release tablet, 5 mg, Oral, Q4H PRN, Renee Chau APRN-CNP cyclobenzaprine (FLEXERIL) tablet, 10 mg, Oral, Every 8 hours, Renee Chau APRN-CNP lidocaine (LIDODERM) 4 % patch, 1 Patch, Transdermal, Every 24 hours, Renee Chau APRN-CNP ALPRAZolam (XANAX) tablet, 0.5 mg, Oral, 2x Daily PRN, Renee Chau APRN-CNP [START ON 05/15/2023] polyethylene glycol (MIRALAX) 17 g packet, 17 g, Oral, Daily, Renee Chau APRN-CNP [START ON more content not included)... Normal [facility] ELECTR[facility] 05-14-2023 Chloride [Moles/Vol] 100 mmol/L Normal 98-107 The [facility] Comment on above: Performed By: #### C R BGA, CR GLU, CR ICA, CR COOX, CR LYTES, LACT #### [facility] [address] [place] [address], Potassium [Moles/Vol] 3.2 mmol/L Low 3.5-5.0 [facility] Comment on above: Performed By: #### C R BGA, CR GLU, CR ICA, CR COOX, CR LYTES, LACT #### [facility] [address] [place] [address], Sodium [Moles/Vol] 135 mmol/L Low 136-146 [facility] Comment on above: Performed By: #### C R BGA, CR GLU, CR ICA, CR COOX, CR LYTES, LACT #### [facility] [address] [place] [address], GLUCOSE, FINGERSTICK-IN OFFI CEon 05-14-2023 Glucose [Mass/Vol] 143 mg/dL High 80-116 [facility] Comment on above: Performed By: #### [id number] ####NURSING GLUCOSE [id number] [place], [address] Glucose [Mass/Vol] 120 mg/dL High 80-116 [facility] Comment on above: Performed By: #### C R BGA, CR GLU, CR ICA, CR COOX, CR LYTES, LACT #### [facility] [address] [place] [address], Glucose [Mass/Vol] 166 mg/dL High 80-116 [facility] Comment on above: Performed By: #### C R BGA, CR GLU, CR ICA, CR COOX, CR LYTES, LACT #### [facility] [address] [place] [address], Glucose [Mass/Vol] 184 mg/dL High 80-116 The [facility] Comment on above: Performed By: #### C R BGA, CR GLU, CR ICA, CR COOX, CR LYTES, LACT #### [facility] [address] [place] [address], GLUCOSE, WHOLE BLOODon 05-14 CR GLU 146 mg/dL High 70-105 [facility] Comment on above: Performed By: #### C R BGA, CR GLU, CR ICA, CR COOX, CR LYTES, LACT #### [facility] [address] [place] [address], LACTIC ACIDon 05-14-2023 CR LACT 0.8 mmol/L Normal 0.5-1.6 [facility] Comment on above: Performed By: #### C R BGA, CR GLU, CR ICA, CR COOX, CR LYTES, LACT #### [facility] [address] [place] [address], OP Noteon 05-14-2023 Food And Beverage Manager Authentication Interface Message Text Kate Hagen CSN: [id number] : 1950 Date of surgery: 05/14/23 Preop Dx: Closed, neurovascularly intact right intertrochanteric femur fracture Postop Dx: Same Procedure: Intramedullary ramon placement (CPT 28534) Use and interpretation of operating fluoroscopy less than 1 hour (CPT 43911) Surgeon: Roberto Resident/Fellow: Franck Cho Anesthesia: GETA Findings: Consistent with preoperative diagonsis Tourniquet: Not used EBL: 50 ccs Specimens: * No specimens in log * Complications: None Implants: Implant Name Type Inv. Item Serial No. Wet Sander Lot No. LRB No. Used Action GAMMA LONG NAIL RIGHT 10MM X 360MM 130DEG STERILE Nail Rods AND Pins Deep [id number] Right 1 Implanted SCR BN 5MM 60MM T2 ALPHA LCK EA1 [id number] - [id number] Screw SCR BN 5MM 60MM T2 ALPHA LCK EA1 [id number] [place] [id number] Right 1 Implanted SCR BN 5MM 45MM T2 ALPHA LCK EA1 [id number] - [id number] Screw SCR BN 5MM 45MM T2 ALPHA LCK EA1 [id number] Deep [id number] Right 1 Implanted SCR BN 10.5MM 85MM GMA LG STRL EA1 [id number] - [id number] Screw SCR BN 10.5MM 85MM GMA LG STRL EA1 [id number] Deep [id number] Right 1 Implanted Indications: This is a 72 year old female who sustained the above injury after a fall. She was evaluated by the orthopaedic surgery resident air route controller and found to have a closed and neurovascularly intact injury. In order to restore early ambulation and reduce the risk of comorbidities she was offered surgery in fhe form of open reduction intramedullary ramon fixation. The risks, benefits, and alternatives to surgery were discussed at length. An informed consent form was signed. The operative limb was marked. The patient was cleared for surgery prior to transport by the Trauma team as well as by the anaesthesia team. Procedure: The patient was met on the floor and agreeable to proceed. She was brought to the OR. A huddle was performed. GETA was induced. IV abx were administered. She was placed on a Conklin table in the supine position. A timeout procedure was performed. All team members were in agreement. The limb was prepped and draped in typical sterile fashion. All bony prominences were well padded. A pre incision pause was performed. The fracture was reduced using traction, some abduction, and some external rotation, as well as some flexion. This reduced the fracture nicely on fluorscopy. We then proceeded with our fixation. A stab incision was made in line with the ASIS and the GT. A starting guidewire was introduced into the medial aspect of the tip of the trochanter. It was well aligned with the neck and shaft on both views. We advanced the wire into the femur. We then extended the incision 2cm distally and proximally and down through the abductors with a 10 blade. We used the opening reamer to ream down just below the level of the lesser trochanter. We removed these and inserted a ball tip guidewire down to the physeal scar. It measured 368 and so we selected a 360mm ramon. We passed the 12mm flexible reamer down by hand to confirm that a 10 nail would insert easily. We then inserted the ramon. We pulled the wire. We confirmed we had maintained our reduction. We inserted the cephalomedullary wire into the neck keeping it low in the neck on the AP and centered on the lateral. This was done through a second 3cm longitudinal incision on the lateral proximal femur. We measured 90mm and so selected an 85mm screw. We drilled for the screw and then placed it by hand through the jig. It had excellent bite and was well seated in the head and subchondral bone. We then removed the sleeves and turned our attention to the distal interlocks. We drilled and placed two bicortical 5mm interlocking screws through 1cm stab incisions through the lateral thigh using the perfect circles technique. These too had excellent bite. The set screw was locked staticallly. We removed the jig and obtained and saved final fluoroscopy. We were very happy with our length, alignment, and fixation. The wounds were copiously irrigated. Hemostasis was confirmed. They were closed with 2-0 vicryl and 3-0 nylon. We then applied dry sterile dressings. The patient was placed back on a hospital bed. GETA was reversed uneventfully. The patient tolerated the procedure well. Plan: The patient will be weightbearing as tolerated on her right lower extremity. She will receive 24hrs IV abx, 6 weeks Vitamin D / Calcium, and 6 weeks 81mg BID ASA or equivalent per the trauma team. She will be followed by the Ortho Trauma team while in house and be readmitted to the Trauma service. Her family was updated and all questions answered. She will follow up in 2 weeks for a wound check. Disposition: Stable to PACU: Yes Dr. Colt Live was personally present for the kim portions of the procedure. Gregorio Cho MD, dictating on behalf of Dr. Live Normal [facility] PARTIAL THROMBOPLASTIN TIMEo n 05-14-2023 aPTT Coag (Bld) [Time] 31 s Normal 25-37 Th [facility] Comment on above: Performed By: #### 8 [id number] #### NURSING GLUCOSE PROGRAM [address] [facility] [place], [address] PROTHROMBIN TIME AND INRon 0 05-14-2023 INR Coag (PPP) [Relative time] 1.30 {INR} High 0.90-1.10 [facility] Comment on above: Performed By: #### 8 [id number] #### NURSING GLUCOSE PROGRAM [address] [place], [address] PT Coag (PPP) [Time] 14.6 s High 9.7-12.9 [facility] Comment on above: Performed By: #### 8 [id number] #### NURSING GLUCOSE PROGRAM [address] [facility] [place], [address] Procedureson 05-14-2023 Food And Beverage Manager Authentication Interface Message Text Transthoracic Echocardiographic Report Name: XIAO KATE Interpreting DAVID Perez Physician: : 1950 Referring PETRONA DENIS MD Physician: Age: 72 Bellow[employer] Charger Assembler: Thalia Conti RDCS Exam Date: 05/14/2023 Fellow: 10:36 AM CVT: PCP: Gender: Female Height 165.1 cm Weight 65.3184 kg Encounter #: BSA 1.72 m2 Study SICU BMI 23.96 kg/m2 Location: Technical Fair-Good Quality: Type of Study: TTE procedure: 2D echocardiogram, M-Mode, Doppler , Color Doppler, Contrast study. Indications for Study:Hypertensive heart disease and Arrhythmia-atrial fibrillation. Tech. Comments Patient identified by name and date of . Doctor's order(s) verified. Patient's preferred language is Zimbabwean . Verbal consent for left heart echo contrast was obtained after explanation of the risks (1/10,000 significant and 1/3,000 minor allergic reactions) and benefits (needed enhancement of imaging) were explained. Administration of 1 dose(s) of 1.5 ml of Definity diluted to 8.5 ml of saline was administered by Thalia Conti IZZY . Supine HR: 94 bpm Supine BP: 114/69 mmHg Patient Status: Routine Contrast Medium: Definity. Left Ventricle Value Normal Value Normal LVIDd: 4.2 cm <5.7 cm Post. Wall 1.4 cm <1.2 cm Thickness: Septum 1.3 cm <1.2 cm LV FS: 35.71 % 30-40% Diastolic: Systolic 2.7 cm <4 cm LV Mass 251g Dimension: LV Mass Index: 146 <110 Women<120 g/m2 Men Left Atrium LA Dimension: 4.6 cm <3.92cm Right Cavities Ventricle RV (apical 4): 3.4 cm <4.3 cm Vessels Sinus of 2.5cm Valsalva: Findings/Conclusions Chambers LV Left ventricular systolic function is hyperdynamic. The left ventricular ejection fraction (LVEF) is 75% +/- 5%by the biplane summation of discs (Carmona's rule) method. Left ventricular size is normal. LA The left atrial size is mildly increased. The left atrial volume index is 37 mL/m2 (normal: <35 mL/m2, mild: 35-41 mL/m2, moderate: 42-48 mL/m2, severe: >48 mL/m2). RV Normal right ventricular size and function. The tricuspid annular plane systolic excursion (TAPSE, a marker of RV systolic function) is normal at 25 mm (normal >16 mm). RA Normal right atrium. Valves AV Aortic valvular stenosis is present. Peak gradient is 44 mmHg, mean gradient is 26 mmHg and the orifice is 1.2 cm2 (+/- 0.15cm2) by continuity equation (LVOTd = 2 cm, V1 = 1.4 m/s, V2 = 3.6 m/s). This suggests the stenosis is moderate from the continuity equation, gradients. This stenotic aortic valve calcification is moderate. 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 Peak gradient is 12 mmHg, mean gradient is 5 mmHg and the orifice is 2.4 cm2. These were at an average heart rate of 102 bpm. Gradients are elevated across the mitral valve due to high output state. TV There is moderate tricuspid regurgitation. The vena contracta measures 0.4 cm (significant >0.6 cm). PV Normal pulmonic valve. Great Vessels Normal sinus of Valsalva. Pericardium/Pleura No evidence of a pericardial effusion. Hemodynamics Estimated pulmonary artery systolic pressure is 60 mmHg +/- 5 mmHg. (Upper normal is <40 mmHg). Estimated RA pressure is <5 mmHg. The cardiac index is high at 6.1 L/min/m2 (normal is 2.5 to 4.3 L/min/m2: D lvot = 2 cm, TVI lvot = 33 cm, HR = 102 bpm). Summary Left ventricular systolic function is hyperdynamic. The left ventricular ejection fraction (LVEF) is 75% +/- 5%. Normal RV systolic function. Moderate aortic valve stenosis. Moderate tricuspid valve regurgitation. Noninvasive hemodynamic assessment is consistent with severe pulmonary hypertension (>60 mmHg), a low CVP, a high cardiac output state. See above for further details. Authenticated by: Invalid Interpretation Code [facility] Noteson 05-14-2023 Food And Beverage Manager Authentication Interface Message Text Trauma Surgery Updated imaging results overnight CTA head/neck: 1. No acute intracranial abnormality. 2. Displaced left mandibular condyle fracture with dislocated TMJ joint. 3. No significant stenosis, dissection, or aneurysm in the intracranial circulation. CT facial bones: PRELIM RESULT 1. Displaced left mandibular condyle fracture with dislocated left TMJ joint. 2. Paranasal sinus disease. XR right hip: Acute comminuted displaced right femoral intertrochanteric fracture. No right hip joint dislocation. No radiopaque foreign body. Degenerative change of the lumbar spine and lumbosacral joint. XR right femur: IN PROCESS Cria Hernández MD Resident Physician Trauma Surgery Pager: [phone] Normal [facility] Food And Beverage Manager Authentication Interface Message Text ----- GENERAL INFORMATION ---- TRAUMA FLOOR - STAFF NOTE Patient Name: Kate Hagen Admission Date: 05/13/2023 Patient seen and examined on 05/14/23 --- INTERVAL HISTORY/EVENTS - Background: Kate Hagen is a 72 year old female with a PMHx of atrial fibrillation (on Eliquis - ran out 7 days prior to fall), DM2, Margarita, neuropathy, idiopathic epilepsy (does 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 Patient tripped over large package of toilet paper at home, causing her to fall and strike her face. OSH imaging showed right hip fracture, L mandibular fracture with TMJ dislocation. Transferred to [facility] for operative intervention. Hospital Course: 05/13/23: Transferred to [facility] for R hip fracture, L mandibular fracture following mechanical FFS. Ortho and OMFS consulted. 05/14/23: Tentative plan for OR with Ortho. Geriatrics consult for frequent falls in the home, polypharmacy. 24 Hour Events: Patient examined pre-operatively. Reporting pain to R hip, as well as L jaw pain which she initially attributed to her dentures. OMFS consulted and informed of OR with Ortho today. Patient remains NPO, kim catheter in place. Daughter at bedside later in the afternoon, medications reviewed. Labs: Last drawn last evening. NA 134, K 3.5. BUN/Creatinine 47/1.8. No leukocytosis, hemoglobin 9.4, platelets 149. INR 1.3. Vitals: Normotensive, BP 97/60-117/60. HR 80s-90. Sats 98% on 3L NC (home dose). Tmax 98.4F. Intake: PO: 100 mL IV: 556.3 mL Output: UOP: 750 mL (kim catheter from OSH) BM: Last BM documented GLAZIER SUPERVISOR PHYSICAL EXAM Vital Signs: Vital sign ranges over the past 24 hours (retrieved 05/14/2023 at 6:31 AM): Tmax (24 hours): 98.7 ???F (37.1 ???C) Pulse Av.3 Min: 91 Max: 101 Systolic (24hrs), Av , Min:114 , Max:150 Diastolic (24hrs), Av, Min:63, Max:81 MAP (mmHg) Av.5 mmHg Min: 79 mmHg Max: 80 mmHg Resp Av.8 Min: 16 Max: 19 SpO2 Av.3 % Min: 98 % Max: 99 % 24 Hour Input/Output Intake/Output Summary (Last 24 hours) at 05/14/2023 0631 Last data filed at 05/14/2023 0600 Gross per 24 hour Intake 656.25 ml Output 750 ml Net -93.75 ml PHYSICAL EXAM GENERAL: Laying in bed, no acute distress NEURO: GCS 15, no focal deficits. Sensation intact. HEENT: Pain to L jaw; no obvious deformity or bruising CARDIOVASCULAR: Rhythm irregular; radial/DP pulses palpable bilaterally. PULMONARY: Breathing easily on home 3L NC. No use of accessory muscles. ABDOMINAL: Soft, non-tender. Large ventral hernia to R of umbilicus, several scars observed EXTREMITIES: Gross motor intact in all extremities; R hip tender to palpation SKIN: Warm, dry LABORATORY RESULTS (LAST 24 HOURS) CBC/PT/INR WBC RBC Hgb Hct MCV RDW Plt PT aPTT INR 05/13/234 31 05/13/23 2334 1.30 05/13/23 2334 9.7 2.98 9.4 27.0 91 14.1 149 Basic Metabolic Panel Na K Cl CO2 Gap Glu BUN Cr Ca Mg PO4 01/11/24 2334 134 Comment: Note updated reference ranges. 3.5 Comment: Note updated reference ranges. Note updated reference ranges. 98 Comment: Note updated reference ranges. 23 Comment: Note updated reference ranges. 17 140 47 Comment: Note updated reference ranges. 1.80 Comment: Note updated reference ranges. 6.9 Comment: Note updated reference ranges. Fingerstick Glucose (last 72 hours) None IMAGING RESULTS (PERSONALLY REVIEWED) Echo 05/14/23: Left ventricular systolic function is hyperdynamic. The left ventricular ejection fraction (LVEF) is 75% +/- 5%. Normal RV systolic function and size. Moderate aortic valve stenosis. Moderate tricuspid valve regurgitation. Noninvasive hemodynamic assessment is consistent with severe pulmonary hypertension (>60 mmHg), a low CVP, a high cardiac output state. ------ ASSESSMENT AND PLAN --------- Diagnoses: Mechanical fall from standing R displaced IT fracture Left mandibular fracture with dislocated L TMJ joint Acute pain due to trauma Incidental Findings: None on imaging obtained at [facility] ([facility], 05/14/23) Plan: Neurological: Acute pain due to trauma. 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 Normal [facility] Food And Beverage Manager Authentication Interface Message Text Home medications reviewed with patient's daughter, Kirstin: - Metolazone 2.5 mg daily - Advair 250-50 mcg/dose 2 puffs QID - Ventolin 90 mcg/actuation - Hydrocodone-acetaminophen 5-325 mg - Flexeril 10 mg TID - Bumetanide 2 mg BID - Bumetanide 1 mg daily at bedtime - Eliquis 5 mg BID - Farxiga 10 mg daily - Fluoxetine 40 mg daily - Magnesium oxide 400 mg BID - Metoprolol tartrate 50 mg BID - Zofran 4 mg q6h PRN - Pantoprazole 40 mg BID - Potassium chloride 20 mEq daily - Rexalti 1 mg once at bedtime - Tizanidine 4 mg TID PRN - Trulicity 0.75 mg on Sundays - Xanax 1 mg TID PRN - Keppra 250 mg BID - Calcium carbonate 500 mg TID - Atorvastatin 20 mg daily - Estradiol 0.25 twice a week - Omeprazole 40 mg BID - Promethazine 25 mg q6h PRN - 3L home oxygen Normal [facility] TYPE AND SCREENon 05-14-2023 ABO and Rh group Nom (Bld) No Previous Results Normal [facility] Comment on above: Performed By: #### C R BGA, CR GLU, CR ICA, CR COOX, CR LYTES, LACT #### S PATHOLOGY LABORATORY [address] [place], [place], ABSC INT Negative Normal [facility] Comment on above: Performed By: #### C R BGA, CR GLU, CR ICA, CR COOX, CR LYTES, LACT #### [facility] [address] [place], [place], XR CHEST AP OR PA 1 VIEWon 0 05-14-2023 XR CHEST AP OR PA 1 VIEW EXAMINATION: XR CHEST AP OR PA 1 VIEW 05/13/2023 11:15 PM CLINICAL HISTORY: Trauma, blunt; preop ASSOCIATED DIAGNOSIS: Trauma, blunt preop ORDERING PROVIDER: CIRA HERNÁNDEZ TECHNOLOGISTS NOTE: COMPARISON: None FINDINGS: Lines, tubes, and devices: None. Lungs and pleura: No focal pulmonary consolidation, effusion or pneumothorax. Cardiomediastinal silhouette: Normal cardiomediastinal silhouette. Musculoskeletal: Age indeterminate proximal left humerus fracture is partially visualized. IMPRESSION: No acute cardiopulmonary abnormality identified. MACRO: None Normal [facility] [employer] XR FEMUR RIGHT MINIMUM 2 VIE WSon 05-14-2023 XR FEMUR RIGHT MINIMUM 2 VIEWS EXAMINATION: XR FEMUR RIGHT MINIMUM 2 VIEWSPRO/RT 05/14/2023 03:52 AM CLINICAL HISTORY: trauma ASSOCIATED DIAGNOSIS: ORDERING PROVIDER: CIRA HERNÁNDEZ TECHNEARLE NOTE: COMPARISON: None IMPRESSION: Intertrochanteric femur fracture with angulation. No dislocation. Right femur MACRO: None Normal [facility] [employer] [facility] XR HIP RIGHT W/ PELVIS MIN 2 -3 VIEWSon 05-14-2023 XR HIP RIGHT W/ PELVIS MIN 2-3 VIEWS EXAMINATION: XR HIP RIGHT W/ PELVIS MIN 2-3 VIEWSPRO/RT 05/14/2023 03:51 AM CLINICAL HISTORY: fx COMPARISON: None IMPRESSION: Acute comminuted displaced right femoral intertrochanteric fracture. No right hip joint dislocation. No radiopaque foreign body. Degenerative change of the lumbar spine and lumbosacral joint. Right hip MACRO: None Normal [facility] [employer] [facility] H AND Guille 05-13-2023 Food And Beverage Manager Authentication Interface Message Text ----- Attestation signed by Alejandro Arana MD at 05/13/2023 11:00 PM Teaching Physician Note: I saw and evaluated the patient. I personally obtained the kim and critical portions of the history and physical exam. I reviewed the resident's documentation and discussed the patient with the resident. I agree with the resident's medical decision making as documented in the resident's note. Alejandro Arana MD Division of Trauma, Critical Care, Palacio, and Emergency General Surgery [facility] Department of [facility] Division of Trauma Surgery, Acute Care Surgery, Critical Care, and Palacio TRAUMA SURGERY HISTORY AND PHYSICAL Kate Hagen [id number] BASIC INJURY INFORMATION: Level of activation: Trauma transfer from [facility] direct admit Mode of transport: Ambulance: transfer from [facility] Mechanism of injury: Fall from ground level Complicating features: Not applicable Protective measures: Not applicable Date of Injury: 05/07/2023 Time of Injury: N/a Patient origin: Transfer from outside facility HISTORY OF PRESENT INJURY: Kate Hagen is a 72 year old female brought in by EMS transferred from OSH following mechanical fall at ground level by tripping over a large package of toilet paper at home. History provided by daughter JASVIR via phone. Reports that patient fell and broke her right hip and maybe hit her face because of the facial pain she reports. Loss of consciousness: No Initial interventions: None Hemodynamic status in ED: None applicable PRIMARY SURVEY: Airway: Intact Breathing: Normal Breath Sounds: Breath sounds equal bilaterally. Circulation: Pulses: Normal Skin: Warm and Dry Disability: Pupils: PERRL GCS: Best Eyes: 4 Best Verbal: 5 Best Motor: 6 Total: 15 SECONDARY SURVEY: There were no vitals taken for this visit. Neurologic: Alert and oriented, appropriate, moves all extremities. HEENT: Head: Tender to palpation left jaw TMJ Eyes: PERRLA, conjunctiva/corneas without lesions. and EOM intact, corrective lenses removed. Ears: Bilateral TMs could no be visualized Nose: Septum midline, no crepitus with motion. Throat: Oral cavity without trauma. Neck: No midline tenderness, lacerations, or wounds Chest: Tender when palpating right chest wall Pulmonary: Breath sounds clear, symmetrical; no wheezes, rales, or consolidation Cardiovascular: Pulses: Bilateral radial, femoral, DP and PT pulses are normal. Abdomen: Gross deformity, described as: incisional hernia RUQ easily reducible. Healed surgical scars consistent with history. No tenderness. Soft. Rectal: Not performed. Pelvis/Perineum: Tender upon palpation of right hip Musculoskeletal: Back/Spine: Thoracolumbar spinal column non-tender and No step-off or deformity noted Extremities: Right LOWER extremity abnormality: decreased sensation, right hip pain. Tremor bilateral hands L>R. RLE paresthesias in foot. Left lower extremity superficial abrasion left knee. Additional exam findings: None PAST MEDICAL HISTORY: Atrial fibrillation (AFib) On 3L oxygen at home PAST SURGICAL HISTORY: No past surgical history on file. Surgical history per patient: Gallbladder Hernia Hysterectomy PRE-ADMISSION MEDICATIONS: No medications prior to admission. No current outpatient medications Meds per patient: 3L oxygen at home Metoprolol Xanax Hydrocodone for back pain lower back chronic Flexeril Additional medications fully reconciled with daughter via phone Anti-platelet use: No Anti-coagulant use: Yes: eliquis (name) and unknown (date of last use) ALLERGIES: Not on File Denies medication allergies SOCIAL HISTORY: Social History Socioeconomic History Marital status: Quit smoking 50 pack year history Two daughters and niece lives with Daughter: Kirstin gilmore pt would like us to talk to her about medical history and care Living status: Home Primary language: Zimbabwean Functional status: Partly dependent Impairments: Impaired mobility Assistive Devices Used: Cane. Cannot do stairs. FAMILY HISTORY: The patient's family history is non-contributory to this acute trauma. Denies bleeding or clotting disorders. REVIEW OF SYSTEMS: Constitutional: Negative Eyes: Negative Ears/Nose/Mouth/Throat: Positive Respiratory: Negative Cardiovascular: Negative Gastrointestinal: Negative Genitourinary: Negative Musculoskeletal: Positive Neurologic: Negative Psychiatric: Negative Skin/Breast: Negative Endocrine: Negative Rheumatologic: Negative Allergic/Immunologic: Negative Significant positives: Right hip, left jaw pain, right foot numbness BASIC LABS No results found for this or any previous visit. RADIOLOGY: CXR: ordered (more content not included)... Normal [facility] CT BRAIN WO CONTon 4 CT BRAIN WO CONT CT BRAIN WO [...] Lin MD on 05/07/2023 5:32 PM Normal [facility] Screenson 04-30-2023 Screens [id number]#[id number] Normal [facility] Heart TransthoracicOrdere d By: Colin Carrillo on 04-30-2023 Aortic Valve Area by Continuity of Peak Velocity 1.21 [facility] Work Phone: Aortic Valve Area by Continuity of VTI 1.29 [facility] Work Phone: [phone] AV mn grad 15.0 [facility] Work Phone: [phone] AV pk grad 28.9 [facility] Work Phone: [phone] AV pk amrit 2.69 [facility] Work Phone: [phone] LV A4C EF 43.9 [facility] Work Phone: [phone] LVIDd 3.90 [facility] Work Phone: [phone] LVOT diam 2.10 [facility] Work Phone: [phone] MV avg E/e' ratio 18.50 [facility] Work Phone: [phone] MV E/A ratio 0.76 [facility] Work Phone: [phone] RVSP 34.6 [facility] Work Phone: [phone] [facility] Work Phone: [phone] Heart Transthoracicon [address], [address] [place] [address] TRANSTHORACIC ECHOCARDIOGRAM REPORT Patient Name: KATE Cuba Physician: [id number] Colin Carrillo MD, [facility] Study Date: 04/29/2023 Ordering Provider: [id number] ANNIKA KABA MRN/PID: [id number] Fellow: Nurse: Date of /Age: 8 1950 / 72 years [employer] Charger Assembler: ROBER Gender: F Additional Staff: Height: 152.40 cm Admit Date: Weight: 72.58 kg Admission Status: BSA: 1.70 m2 Department Location: [facility] Blood Pressure: 122 /64 mmHg Study Type: TRANSTHORACIC ECHO (TTE) COMPLETE Diagnosis/ICD: Nonrheumatic aortic (valve) stenosis-I35.0 Indication: Paroxysmal Atrial Fibrillation, COPD-on O2 at 2-3l, Diabetes, HTN, Hyperlipidemia, Tobacco Abuse, CKD-Stage III, Pulmonary HTN CPT Codes: Echo Complete w Full Doppler-[id number] Study Detail: The following Echo studies were [...] included)... Colin Henderson M D - 04/30/[address], [address], [place] [address] TRANSTHORACIC ECHOCARDIOGRAM REPORT Patient Name: KATE Cuba Physician: [id number] Colin Carrillo MD, [facility] Study Date: 04/29/2023 Ordering Provider: [id number] ANNIKA KABA MRN/PID: [id number] Fellow: Nurse: Date of /Age: 8 1950 / 72 years [employer] Charger Assembler: ROBER Gender: F Additional Staff: Height: 152.40 cm Admit Date: Weight: 72.58 kg Admission Status: BSA: 1.70 m2 Department Location: [facility] Blood Pressure: 122 /64 mmHg Study Type: TRANSTHORACIC ECHO (TTE) COMPLETE Diagnosis/ICD: Nonrheumatic aortic (valve) stenosis-I35.0 Indication: Paroxysmal Atrial Fibrillation, COPD-on O2 at 2-3l, Diabetes, HTN, Hyperlipidemia, Tobacco Abuse, CKD-Stage III, Pulmonary HTN CPT Codes: Echo Complete w Full Doppler-[id number] Study Detail: The following Echo studies were [...] 0.9 m/s (0.6-0.9m/s) PV Max P.3 mmHg [id number] Colin Carrillo MD, [facility] Electronically signed on 04/30/2023 at 3:47:08 PM Final (more content not included)... [facility] Work Phone: Ambulatory Visit Summaryon 1 06-29-2022 Ambulatory Visit Summary KATE HAGEN :1950 Visit Date:04/28/2023 Ambulatory Visit Instructions Your Diagnosis Recurrent UTI Pneumaturia Adrenal mass Urinary retention Renal cyst Urgency of urination Your Care Team Attending Physician - Jacqui Michael MD Primary Care Physician - SHAWN BARBER MD Referring Physician - Jacqui Michael MD This Is Your Medications List estradiol topical (Estrace 0.1 mg/g Cream) Contact prescribing physician if questions or concerns acetaminophen-hydrocodone (acetaminophen-hydrocodon e 325 mg-5 mg oral tablet) albuterol (Ventolin [...] PM EST With: Lani Wasserman CNP Where: [facility] Normal [facility] Patient Educationon 04-28-20 23 Patient Education Obstetrics and Gynec ology Urinary Tract Infection, Adult A urinary tract [...] these instructions at home: Medicines ? Take swcw-cpk-vrfmqyt and prescription medicines only as told by [...] provider. Document Revised: 11/29/2020 Document Reviewed: 11/29/2020 [employer] Patient Education ? 2022 [employer]. [facility] Urology Office/Clinic Noteon 04-28-2023 Urology [...] due to (more content not included)... Normal [facility] Comment on above: Result Comment: Elec tronically Signed By: Jacqui Michael MD\.br\Date and Time Signed: 04/28/23 10:55 EST\.br\Electronically Co-Signed By: Brisa Russell.br\Date and Time Co-Signed: 04/28/23 10:25 EST Physician Referralon 023 Physician Referral [id number]#1.00TIFF Normal [facility] Physician Referralon 023 Physician Referral [id number]#1.00TIFF Normal [facility] Consent for Procedure/Surger yon 02-22-2023 Consent for Procedure/Surgery [id number]#1.00TIFF Normal [facility] Consent for Treatmenton 02-01 Consent for Treatment [id number]#1.00TIFF Normal [facility] Inpatient Patient Summaryon 02-22-2023 Inpatient Patient Summary [place] [id number] Clinical Summary Person Information Name: KATE HAGEN Age: 72 Years : 1950 Sex: Female PCP: SHAWN BARBER MD Marital Status: Race: White Ethnicity: Non- or Language: Zimbabwean Visit Id: Visit Reason: RECURRENT UTI Speciality: Acuity: Enc Type: Outpatient Med Service: Surgery Arrival: 02/22/2023 09:20:37 Discharge: Dispo Type: Address: [address] [place] [address] [phone] Provider Notes: Diagnosis: Emphysematous cystitis; Pneumaturia; Recurrent [...] Immunizations Documented This Visit Final Med List: acetaminophen-hydrocodone (acetaminophen-hydrocodon e 325 mg-5 mg oral tablet) albuterol (Ventolin [...] Michael MD Follow up: With: Address: When: Jacquirandal Michael [address], [place] [address] [phone] Business (1) [address] [place] [address], [address] [address] [phone] Business (1) Comments: Office to schedule follow up in 1 to 2 months Patient Education Information: EU - Cystoscopy Discharge Instructions (CUSTOM) [facility] IntraOperative Documentson 1 IntraOperative Documents [id number]#1.00TIFF [facility] Main OR Intraoperative Recor don 02-22-2023 Main OR Intraoperative Record IntraOp Document Type FTURO Summary Primary Physician: Jacqui Michael MD Finalized Date/Time: 02/22/23 10:39:48 Pt. Name: XIAOKATE/Sex: 1950 Female Med Rec #: [id number] Physician: Jacqui Michael MD Financial #: [id number] Pt. Type: O Room/Bed: / Admit/Disch: 02/22/23 09:20:37 - Institution: Case Times FTURO Entry 1 Patient Times In Room 02/22/23 10:18:00 Out Room 02/22/23 10:35:00 Procedure Times Start 02/22/23 10:23:00 Stop 02/22/23 10:29:00 Anesthesia Times Last Modified By: Keisha Pride RN 02/22/23 10:35:59 Case Attendance FTURO Entry 1 Entry 2 Entry 3 Case Attendee Jacqui Michael MD, CST, Kimberly A Barbee RN, Keisha Y Role Performed Surgeon - Primary Scrub - Primary Tariff Inspector - Primary Time In 02/22/23 10:18:00 02/22/23 [...] UTI Outcomes Met? Yes Last Modified By: Keihsa Pride RN 02/22/23 10:14:27 Post-Care Text: The [...] Michael MD, Verified (If Participants Keisha Hampton CST) Shannen Mata RN, Kimberly Y Time Out [...] By: Keisha Pride RN 02/22/23 10:39 Normal [facility] Main OR Preoperative Recordo n 02-22-2023 Main OR Preoperative Record Holding Area Document Type FTURO Summary Primary Physician: Jacqui Michael MD Finalized Date/Time: 02/22/23 10:13:17 Pt. Name: KATE HAGEN/Sex: 1950 Female Med Rec #: [id number] Physician: Jacqui Michael MD Financial #: [id number] Pt. Type: O Room/Bed: / Admit/Disch: 02/22/23 [...] Comment: chronic back pain Skin Integrity Intact, [place], Warm, & Dry Vitals - EU Blood Pressure 92/54 Pulse 69 bpm Respirations 20 br/min SPO2 99 % RN Reviewed Yes Last Modified By: Keisha Pride RN 02/22/23 10:13:16 General Comments: Temp 36.6 Finalized By: Keisha Pride RN Document Signatures Signed By: Becka Arredondo LPN 02/22/23 09:34 Keisha Pride RN 02/22/23 10:13 Normal [facility] Operative Reporton Operative Report Patient: LAEVLLE HAGEN Age: 72 years Sex: Female : 1950 Associated Diagnoses: None Author: Jacqui Michael MD Procedure Operative Information Details: Date/ Time: 02/22/2023 10:33:00. Pre-Op Dx: Emphysematous cystitis (IFA77-JZ N30.80, Discharge, Medical), Pneumaturia (IKP49-WL R39.89, Discharge, Medical), Recurrent UTI (CCX73-LJ N39.0, Discharge, Medical). Post-Op Dx: Same. Anesthesia Type: Local. Procedure: Local Cystoscopy. Complications: None. Risks/Benefits/Informed Consent: Surgical risks, benefits, details of the [...] -Follow-up in 1 to 2 months.. Normal [facility] Comment on above: Result Comment: Elec tronically Signed By: Alec XIE, Jacqui Nieves\.br\Date and Time Signed: 02/22/23 10:37 EDT Outpatient Surgery Discharge Instructionon 02-22-2023 Outpatient Surgery Discharge Instruction [address] [address] Patient Discharge Instructions PERSON INFORMATION Name: KATE HAGEN Date of : 1950 Current Date: 02/22/2023 10:33:14 PHYSICIANS Admitting Physician: Jacqui Michael MD Comment: Discharge Diagnosis: Emphysematous cystitis; Pneumaturia; Recurrent UTI KATE HAGEN has been given the following list of follow-up instructions, prescriptions, and patient education materials: IF UNABLE TO CONTACT YOUR PHYSICIAN AND YOU FEEL IT IS AN EMERGENCY, GO TO THE NEAREST EMERGENCY ROOM OR CALL 911 Follow up: With: Address: When: Jacqui Michael [address], [facility] [place] [address] [phone] Business (1) [address], [place] [address], [facility] [address] [place] [address] [phone] Business (1) Comments: Office to schedule follow [...] have a fever over 100 degrees. I, KATE HAGEN, have received the attached patient education materials/instructions and have verbalized understanding: May we do a follow up call? Yes No I was present when discharge instructions were given Patient Signature ___ Date Clinican/Nurse Signature Date You may receive a survey from Manjit Sanders asking you to rate your care experience. Your feedback is important and will help us understand what we do well and how we can improve the quality of care we provide to you, your loved ones and our community. It?s an honor to serve you. Thank you for choosing [facility] Normal [facility] Lab Reportson 02-10-2023 Lab Reports [id number]#[id number] Normal [facility] C Urineon 02-05-2023 Bacteria identified Cx [...] or tested, I=Intermediate, ESBL=Extended spectrum beta-lactamase, R=Resistant, TFG=Thymidine-dependent strain, SHERICE=Beta-lactamase positive, GISSEL=mcg/m;(mg/L), S*=Predicted susceptible interp, [...] Locations R1: This test was performed at: [facility], [address] [place] [address], [id number] , [place], Normal [facility] Comment on above: Performed By: #### 2 1955[address] ####[place] [address] Patient Educationon 02-04-20 23 Patient Education Obstetrics and Gynec ology Urinary Tract Infection, Adult A urinary tract [...] these instructions at home: Medicines ? Take fahz-kzn-zfamrle and prescription medicines only as told by [...] provider. Document Revised: 11/29/2020 Document Reviewed: 11/29/2020 [employer] Patient Education ? 2022 [employer]. Normal [facility] [place] 02-03-2023 Screens [id number]#[id number]:1 27 Normal [facility] Urology Office/Clinic Noteon 02-03-2023 Urology Office/Clinic [...] 06/15/22- 2.7 (6.2 (more content not included)... [facility] Comment on above: Result Comment: Elec tronically Signed By: Jacqui Michael MD\.br\Date and Time Signed: 02/03/23 10:45 EDT\.br\Electronically Co-Signed By: Brisa Russell\.br\Date and Time Co-Signed: 02/03/23 10:02 EDT\.br\Electronically Co-Signed By: Brisa Russell\.br\Date and Time Co-Signed: 02/03/23 10:12 EDT [place] 12-31-2022 Screens [id number]:12 7 [facility] Ambulatory Visit Summaryon 0 12-29-2022 Ambulatory Visit Summary KATE HAGEN :1950 Visit Date:12/29/2022 Ambulatory Visit Instructions Your Diagnosis UTI (urinary tract infection) Pneumaturia Adrenal mass Urinary retention Renal cyst Your Care Team Attending Physician - INES WELCH PA-C Primary Care Physician - SHAWN BARBER MD This Is Your Medications List Contact prescribing physician if questions or concerns acetaminophen-hydrocodone (acetaminophen-hydrocodon e 325 mg-5 mg oral tablet) albuterol (Ventolin [...] Jacqui Michael MD Where: [facility] Patient Educationon 12-30-19 Patient Education Obstetrics and Gynec ology Urinary Tract Infection, Adult A urinary tract [...] this condition includes: ? Antibiotic medicine. ? Qdry-jkv-gretaha medicines to treat discomfort. ? Drinking enough [...] these instructions at home: Medicines ? Take sxcn-rio-wzgnqxe and prescription medicines only as told by [...] Document Revie (more content not included)... Normal [facility] Urology Office/Clinic Noteon 12-29-2022 Urology Office/Clinic Note Chief Complaint UTI HPI Staff KML pt. Last seen in our office by MARLINL 07/29/22 due to Adrenal Mass, Urinary Retention, and Renal Cyst. Has 6 mos f/u appt w/JAZMYN on 02/03/23. Pt is here today due to recent UTI BMP 11/24/22 *BUN 35.0 & Crea 1.83 +UACS 12/19/22 >100k Klebsiella pneumoniae Tx'd w/Cephalexin 500mg BID a33qsrx Pt just started taking on Wednesday. Increased urgency. Odor to urine. Increased leaking. Home Health Nurse took sample to [facility]. Pt states she had air in bladder. [...] given stability and metabolic workup wnl Ordered: [id number] Measure Post Void residual urine and/or bladder [...] by Ines Welch PA-C on 12/29/2022 15:25:06. IDanielle, personally scribed for Ines Welch PA-C on [...] Psoriatic arthrit (more content not included)... Normal [facility] Comment on above: Result Comment: Elec tronically [...] depressive disorder PHQ2 Screen Positive; Status:Complete; Done: [id number] Overweight with body mass index (BMI) of 29 to 29.9 in adult Healthy Weight Tips; Status:Complete; Done: [id number] SocHx: Current smoker Tobacco Use Screening; Status:Complete; Done: [id number] You need to stop smoking. Though it is not easy, more than half of all adult smokers have quit. We encourage you to write down all the reasons you should quit smoking and set a quit date for yourself. Ask us how we can help. You may also call 0-333-GJCV-NOW for free resources and assistance.; Status:Complete; Done: [id number] Tobacco Use Screening; Status:Complete; Done: [id number] Patient Instructions Please bring all medicines, vitamins, [...] to continue without modifications. 2. Records from [facility] 3. Return for follow-up; in the interim, contact the office if new symptoms arise. Dr. Arriaga 4 months Chief Complaint Hospital f/u: 'doing ok' KATE HAGEN is being seen for follow-up of a hospitalization for dyspnea. Patient presents to the office in a wheelchair, utilizing oxygen and is accompanied by family member. This is initial in clinic follow-up at [facility]. She has previously been managed by [facility] since approximately 2021. Both she and [...] are requesting to establish cardiology follow-up with [facility]. October 2022 hospitalized at [facility] due to shortness of breath, seen in consultation by Dr. Jean. Echocardiogram at that time showed moderate aortic stenosis peak 46, mean 26. She was diuresed and some documentation that she was to follow-up with nephrology (not completed to date). Reportedly went to [facility] for comprehensive rehabilitation program but is [...] regular basis (more content not included)... Normal [employer] Tobacco Screening.on 023 Adult depression screening assessment Yes [facility] DO Work Phone: Adult depression screening assessment Moderate (10-14) [facility] [employer] DO Work Phone: [phone] Fall risk assessment a) No falls within the last year [facility] [employer] 250 DO Work Phone: [phone] Tobacco use status CPHS a) Yes [facility] [employer] 250 DO Work Phone: Tobacco Screening. Yes [facility] [employer] 250 DO Work Phone: Tobacco Screening. 1-Several days [facility] [employer] 250 DO Work Phone: Tobacco Screening. 3-Nearly every day [facility] 250 DO Work Phone: Tobacco Screening. 0-Not at all [facility] [employer] 250 DO Work Phone: Tobacco Screening. Somewhat Difficult [facility] [employer] 250 DO Work Phone: [phone] Basic Metabolic Panelon 11-01 Anion gap [Moles/Vol] Not performed Normal 6.0-15.0 [facility] Comment on above: Performed By: #### B MP, MG, FE and TIBC, AFSANEH, CBC #### [address] Calcium [Mass/Vol] 9.4 mg/dL Normal 8.6-10.3 [facility] Comment on above: Performed By: #### B MP, MG, FE and TIBC, AFSANEH, CBC #### [address] Chloride [Moles/Vol] 92 mmol/L Low 98-107 [facility] Comment on above: Performed By: #### B MP, MG, FE and TIBC, AFSANEH, CBC #### [address] CO2 [Moles/Vol] mmol/L High 21.0-31.0 [facility] Comment on above: Performed By: #### B MP, MG, FE and TIBC, AFSANEH, CBC #### [address] Creatinine [Mass/Vol] 1.54 mg/dL High 0.60-1.20 [facility] Comment on above: Performed By: #### B MP, MG, FE and TIBC, AFSANEH, CBC #### [address] Creatinine Clr Calc Pharmacy 29.80 [facility] Comment on above: Result Comment: PERF ORMED BY: [place] [address] PATHOLOGIST COMPLEX CARE NURSE KOBE VENCES M.D. Performed By: #### B MP, MG, FE and TIBC, AFSANEH, CBC #### [place] [address] [place] GFR/1.73 sq M.predicted MDRD (S/P/Bld) [Vol rate/Area] 35.431 mL/min/{1.73_m2} [facility] Comment on above: Performed By: #### B MP, MG, FE and TIBC, AFSANEH, CBC #### [facility] [address] Glucose [Mass/Vol] 95 mg/dL Normal 70-100 [facility] Comment on above: Result Comment: [facility] Glucose Reference Range is dependent on time and content of last meal. Glucose of more than 200 mg/dL in a nonstressed, ambulatory subject supports the diagnosis of Diabetes Mellitus. ADA recommended reference range Performed By: #### B MP, MG, FE and TIBC, AFSANEH, CBC #### [facility] [address] Potassium [Moles/Vol] 4.6 mmol/L Normal 3.5-5.1 [facility] Comment on above: Performed By: #### B MP, MG, FE and TIBC, AFSANEH, CBC #### [facility] [address] Sodium [Moles/Vol] 141 mmol/L Normal 136-145 [facility] Comment on above: Performed By: #### B MP, MG, FE and TIBC, AFSANEH, CBC #### [facility] [address] Urea nitrogen [Mass/Vol] 35 mg/dL High 7-25 [facility] Comment on above: Performed By: #### B MP, MG, FE and TIBC, AFSANEH, CBC #### [address] Basophils Auto (Bld) [#/Vol] Ordered By: Gina Poole on 11-21-2022 Basophils (Bld) [#/Vol] 0.0 10*3/uL 0.0-0.2 [facility] Basophils/100 WBC Auto (Bld) Ordered By: Gina Poole on 11-21-2022 Basophils/100 WBC (Bld) 0.3 % . [facility] Calcium [Mass/volume] in Ser um or PlasmaOrdered By: Gina Poole on 11-21-2022 Calcium [Mass/Vol] 9.4 mg/dL 8.6-10.3 [facility] Carbon dioxide, total [Moles /volume] in Serum or PlasmaOrdered By: Gina Poole on 11-21-2022 CO2 [Moles/Vol] mmol/L 21.0-31.0 [facility] Chloride [Moles/volume] in S arti or PlasmaOrdered By: Gina Poole on 11-21-2022 Chloride [Moles/Vol] 92 mmol/L 98-107 [facility] Complete Blood Count Auto Di ffon 11-21-2022 Basophils (Bld) [#/Vol] 0.0 10*3/uL Normal 0.0-0.2 [facility] Comment on above: Result Comment: PERF ORMED BY: [place] [address] PATHOLOGIST COMPLEX CARE NURSE KOBE VENCES M.D. Performed By: #### B MP, MG, FE and TIBC, AFSANEH, CBC #### [address] Basophils/100 WBC (Bld) 0.3 % Normal . [facility] Comment on above: Performed By: #### B MP, MG, FE and TIBC, AFSANEH, CBC #### [facility] [address] [place] [address] Eosinophils (Bld) [#/Vol] 0.2 10*3/uL Normal 0.0-0.45 [facility] Comment on above: Performed By: #### B MP, MG, FE and TIBC, AFSANEH, CBC #### [address] Eosinophils/100 WBC (Bld) 2.7 % Normal . [facility] Comment on above: Performed By: #### B MP, MG, FE and TIBC, AFSANEH, CBC #### [address] Erythrocyte distribution width (RBC) [Ratio] 15.2 % Normal 11.9-15.3 [facility] Comment on above: Performed By: #### B MP, MG, FE and TIBC, AFSANEH, CBC #### [address] Hematocrit (Bld) [Volume fraction] 24.7 % Low 34.0-46.4 [facility] Comment on above: Performed By: #### B MP, MG, FE and TIBC, AFSANEH, CBC #### [address] Hemoglobin (Bld) [Mass/Vol] 8.0 g/dL Low 11.8-15.4 [facility] Comment on above: Performed By: #### B MP, MG, FE and TIBC, AFSANEH, CBC #### [address] Lymphocytes (Bld) [#/Vol] 1.1 10*3/uL Normal 1.00-4.8 [facility] Comment on above: Performed By: #### B MP, MG, FE and TIBC, AFSANEH, CBC #### [address] Lymphocytes/100 WBC (Bld) 18.9 % Normal . [facility] Comment on above: Performed By: #### B MP, MG, FE and TIBC, AFSANEH, CBC #### [address] MCH (RBC) [Entitic mass] 29.0 pg Normal 24.7-34.3 [facility] Comment on above: Performed By: #### B MP, MG, FE and TIBC, AFSANEH, CBC #### [address] MCV (RBC) [Entitic vol] 89.8 fL Normal 80-100 [facility] Comment on above: Performed By: #### B MP, MG, FE and TIBC, AFSANEH, CBC #### [address] Mean Corpuscular HGB Conc 32.3 g/dL Normal 32.0-35.0 [facility] Comment on above: Performed By: #### B MP, MG, FE and TIBC, AFSANEH, CBC #### [address] Monocytes (Bld) [#/Vol] 0.4 10*3/uL Normal 0.0-0.8 [facility] Comment on above: Performed By: #### B MP, MG, FE and TIBC, AFSANEH, CBC #### [address] Monocytes/100 WBC (Bld) 7.3 % Normal . [facility] Comment on above: Performed By: #### B MP, MG, FE and TIBC, AFSANEH, CBC #### [address] Neutrophils (Bld) [#/Vol] 4.1 10*3/uL Normal 1.8-7.7 [facility] Comment on above: Performed By: #### B MP, MG, FE and TIBC, AFSANEH, CBC #### [address] Neutrophils/100 WBC (Bld) 70.8 % Normal . [facility] Comment on above: Performed By: #### B MP, MG, FE and TIBC, AFSANEH, CBC #### [address] NRBC% 0.1 /100{WBC} Normal 0-0.5 [facility] Comment on above: Performed By: #### B MP, MG, FE and TIBC, AFSANEH, CBC #### [address] Platelet mean volume (Bld) [Entitic vol] 7.8 fL Normal 6.3-10.7 [facility] Comment on above: Performed By: #### B MP, MG, FE and TIBC, AFSANEH, CBC #### [place] [address] [place] Platelets (Bld) [#/Vol] 132 10*3/uL Low 150-450 [facility] Comment on above: Performed By: #### B MP, MG, FE and TIBC, AFSANEH, CBC #### [address] RBC (Bld) [#/Vol] 2.75 10*6/uL Low 3.60-5.00 [facility] Comment on above: Performed By: #### B MP, MG, FE and TIBC, AFSANEH, CBC #### [facility] [address] [place] [address] [place] WBC (Bld) [#/Vol] 5.7 10*3/uL Normal 3.8-11.6 [facility] Comment on above: Performed By: #### B MP, MG, FE and TIBC, AFSANEH, CBC #### [facility] [address] Creatinine [Mass/volume] in Serum or PlasmaOrdered By: Gina Poole on 11-21-2022 Creatinine [Mass/Vol] 1.54 mg/dL 0.60-1.20 [facility] Eosinophils Auto (Bld) [#/Vo l]Ordered By: Gina Poole on 11-21-2022 Eosinophils (Bld) [#/Vol] 0.2 10*3/uL 0.0-0.45 [facility] Eosinophils/100 WBC Auto (Bl d)Ordered By: Gina Poole on 11-21-2022 Eosinophils/100 WBC (Bld) 2.7 % . [facility] Erythrocyte distribution wid th Auto (RBC) [Ratio]Ordered By: Gina Poole on 11-21-2022 Erythrocyte distribution width (RBC) [Ratio] 15.2 % 11.9-15.3 [facility] Glucose Glucometer (BldC) [M ass/Vol]Ordered By: Gina Poole on 11-21-2022 Glucose [Mass/Vol] 149 mg/dL [facility] Comment on above: Random Glucose Refer ence Range is dependent on time and content of last meal. Glucose of more than 200 mg/dL in a nonstressed, ambulatory subject supports the diagnosis of Diabetes Mellitus. Glucose Poct Glucometerson 0 11-21-2022 Glucose [Mass/Vol] 118 mg/dL Normal [facility] Comment on above: Result Comment: [place] Glucose Reference Range is dependent on time and content of last meal. Glucose of more than 200 mg/dL in a nonstressed, ambulatory subject supports the diagnosis of Diabetes Mellitus. PERFORMED BY: [place] [id number] PATHOLOGIST COMPLEX CARE NURSE KOBE VENCES M.D. Performed By: #### B MP, MG, FE and TIBC, AFSANEH, CBC #### [facility] [address] [place] [address] [facility] Glucose [Mass/Vol] 149 mg/dL Normal [facility] Comment on above: Result Comment: [place] Glucose Reference Range is dependent on time and content of last meal. Glucose of more than 200 mg/dL in a nonstressed, ambulatory subject supports the diagnosis of Diabetes Mellitus. PERFORMED BY: [place] [address] PATHOLOGIST COMPLEX CARE NURSE KOBE VENCES M.D. Performed By: #### B MP, MG, FE and TIBC, AFSANEH, CBC #### [address] [facility] Glucose [Mass/volume] in Ser um or PlasmaOrdered By: Gina Poole on 11-21-2022 Glucose [Mass/Vol] 95 mg/dL 70-100 [facility] Comment on above: ADA recommended refe rence rangeRandom Glucose Reference Range is dependent on time and content of last meal. Glucose of more than 200 mg/dL in a nonstressed, ambulatory subject supports the diagnosis of Diabetes Mellitus. Hematocrit Auto (Bld) [Volum e fraction]Ordered By: Gina Poole on 11-21-2022 Hematocrit (Bld) [Volume fraction] 24.7 % 34.0-46.4 [facility] Hemoglobin [Mass/volume] in BloodOrdered By: Gina Poole on 11-21-2022 Hemoglobin (Bld) [Mass/Vol] 8.0 g/dL 11.8-15.4 [facility] Leukocytes [#/volume] correc loan for nucleated erythrocytes in Blood by Automated counOrdered By: Gina Poole on 11-21-2022 WBC corrected for nucl RBC Auto (Bld) [#/Vol] 5.7 10*3/uL 3.8-11.6 [facility] Lymphocytes Auto (Bld) [#/Vo l]Ordered By: Gina Poole on 11-21-2022 Lymphocytes (Bld) [#/Vol] 1.1 10*3/uL 1.00-4.8 [facility] Lymphocytes/100 WBC Auto (Bl d)Ordered By: Gina Poole on 11-21-2022 Lymphocytes/100 WBC (Bld) 18.9 % . [facility] MCH Auto (RBC) [Entitic mass ]Ordered By: Gina Poole on 11-21-2022 MCH (RBC) [Entitic mass] 29.0 pg 24.7-34.3 [facility] MCHC Auto (RBC) [Mass/Vol]Or dered By: Gina Poole on 11-21-2022 MCHC (RBC) [Mass/Vol] 32.3 g/dL 32.0-35.0 [facility] MCV Auto (RBC) [Entitic vol] Ordered By: Gina Poole on 11-21-2022 MCV (RBC) [Entitic vol] 89.8 fL 80-100 [facility] Monocytes Auto (Bld) [#/Vol] Ordered By: Gina Poole on 11-21-2022 Monocytes (Bld) [#/Vol] 0.4 10*3/uL 0.0-0.8 [facility] Monocytes/100 WBC Auto (Bld) Ordered By: Gina Poole on 11-21-2022 Monocytes/100 WBC (Bld) 7.3 % . [facility] Neutrophils Auto (Bld) [#/Vo l]Ordered By: Gina Poole on 11-21-2022 Neutrophils (Bld) [#/Vol] 4.1 10*3/uL 1.8-7.7 [facility] Neutrophils/100 WBC Auto (Bl d)Ordered By: Gina Poole on 11-21-2022 Neutrophils/100 WBC (Bld) 70.8 % . [facility] No Panel InformationOrdered By: Gina Poole on 11-21-2022 Estimated GFR (CKD-EPI) 35.431 mL/Min [facility] Creatinine Clearance (Chem 29.80 [facility] Nucleated erythrocytes [Pres ence] in Blood by Automated countOrdered By: Gina Poole on 11-21-2022 Nucleated RBC Auto Ql (Bld) 0.1 /100{WBC} 0-0.5 [facility] Platelet mean volume Auto (B ld) [Entitic vol]Ordered By: Gina Poole on 11-21-2022 Platelet mean volume (Bld) [Entitic vol] 7.8 fL 6.3-10.7 [facility] Platelets Auto (Bld) [#/Vol] Ordered By: Gina Poole on 11-21-2022 Platelets (Bld) [#/Vol] 132 10*3/uL 150-450 [facility] Potassium [Moles/volume] in Serum or PlasmaOrdered By: Gina Poole on 11-21-2022 Potassium [Moles/Vol] 4.6 mmol/L 3.5-5.1 [facility] RBC Auto (Bld) [#/Vol]Ordere d By: Gina Poole on 11-21-2022 RBC (Bld) [#/Vol] 2.75 10*6/uL 3.60-5.00 [facility] Serum or plasma anion gap de terminationOrdered By: Gina Poole on 11-21-2022 Anion gap [Moles/Vol] TNP [facility] Comment on above: Test not performed Sodium [Moles/volume] in Ser um or PlasmaOrdered By: Gina Poole on 11-21-2022 Sodium [Moles/Vol] 141 mmol/L 136-145 [facility] Urea nitrogen [Mass/volume] in Serum or PlasmaOrdered By: Gina Poole on 11-21-2022 Urea nitrogen [Mass/Vol] 35 mg/dL 7-25 [facility] WBC Auto (Bld) [#/Vol]Ordere d By: Gina Poole on 11-21-2022 WBC (Bld) [#/Vol] 5.7 10*3/uL 3.8-11.6 [facility] XR chest 2V*on 11-21-2022 XR chest 2V* [facility] [place] [address] XRay Report Signed Patient: Kate Hagen MR#: [id number] 52 : 1950 Acct:[id number] Age/Sex: 71 / F ADM Date: 11/18/22 Loc: Room: [address] [place] [address] Type: ADM IN Attending Dr: Gina Poole [...] Candace Godfrey M.D.11/21/2022 9:26 AM Dictation Location: [place] [address] Transcribed By: [facility] 11/21/22925 Dictated By: Candace Godfrey II, MD 11/21/22923 Signed By: 11/21/22925 [facility] Basic Metabolic Panelon 07-2 Anion gap [Moles/Vol] 7.5 mmol/L Normal 6.0-15.0 [facility] Comment on above: Performed By: #### C BETTYE, BMP #### [facility] [address] [place] [address] [place] Calcium [Mass/Vol] 8.7 mg/dL Normal 8.6-10.3 [facility] Comment on above: Performed By: #### C BC, BMP #### [facility] [address] [place] [id number] [place] Chloride [Moles/Vol] 99 mmol/L Normal 98-107 [facility] Comment on above: Performed By: #### C BETTYE, BMP #### [facility] [address] CO2 [Moles/Vol] 42.2 mmol/L High 21.0-31.0 [facility] Comment on above: Performed By: #### C BC, BMP #### [address] Creatinine [Mass/Vol] 1.73 mg/dL High 0.60-1.20 [facility] Comment on above: Performed By: #### C BC, BMP #### [place] [address] [place] Creatinine Clr Calc Pharmacy 26.[address] [facility] Comment on above: Result Comment: PERF ORMED BY: [place] [address] PATHOLOGIST COMPLEX CARE NURSE KOBE VENCES M.D. Performed By: #### C BC, BMP #### [place] [address] [place] GFR/1.73 sq M.predicted MDRD (S/P/Bld) [Vol rate/Area] 30.815 mL/min/{1.73_m2} Normal [facility] Comment on above: Performed By: #### C BC, BMP #### [place] [address] [place] Glucose [Mass/Vol] 104 mg/dL High 70-100 [facility] Comment on above: Result Comment: [place] Glucose Reference Range is dependent on time and content of last meal. Glucose of more than 200 mg/dL in a nonstressed, ambulatory subject supports the diagnosis of Diabetes Mellitus. ADA recommended reference range Performed By: #### C BC, BMP #### [place] [address] [place] Potassium [Moles/Vol] 4.7 mmol/L Normal 3.5-5.1 [facility] Comment on above: Performed By: #### C BC, BMP #### [place] [address] [place] Sodium [Moles/Vol] 144 mmol/L Normal 136-145 [facility] Comment on above: Performed By: #### C BC, BMP #### [facility] [address] Urea nitrogen [Mass/Vol] 33 mg/dL High 7-25 [facility] Comment on above: Performed By: #### C BC, BMP #### [facility] [address] Complete Blood Count Auto Di ffon 11-20-2022 Basophils (Bld) [#/Vol] 0.0 10*3/uL Normal 0.0-0.2 [facility] Comment on above: Result Comment: PERF ORMED BY: [place] [address] PATHOLOGIST COMPLEX CARE NURSE KOBE VENCES M.D. Performed By: #### C BC, BMP #### [address] Basophils/100 WBC (Bld) 0.4 % Normal . [facility] Comment on above: Performed By: #### C BC, BMP #### [facility] [address] Eosinophils (Bld) [#/Vol] 0.1 10*3/uL Normal 0.0-0.45 [facility] Comment on above: Performed By: #### C BC, BMP #### [address] Eosinophils/100 WBC (Bld) 2.1 % Normal . [facility] Comment on above: Performed By: #### C BC, BMP #### [facility] [address] Erythrocyte distribution width (RBC) [Ratio] 15.6 % High 11.9-15.3 [facility] Comment on above: Performed By: #### C BC, BMP #### [facility] [address] Hematocrit (Bld) [Volume fraction] 24.9 % Low 34.0-46.4 [facility] Comment on above: Performed By: #### C BC, BMP #### [facility] [address] [place] [address] [place] Hemoglobin (Bld) [Mass/Vol] 8.0 g/dL Low 11.8-15.4 [facility] Comment on above: Performed By: #### C BC, BMP #### [facility] [address] Lymphocytes (Bld) [#/Vol] 1.2 10*3/uL Normal 1.00-4.8 [facility] Comment on above: Performed By: #### C BC, BMP #### [facility] [address] Lymphocytes/100 WBC (Bld) 22.4 % Normal . [facility] Comment on above: Performed By: #### C BETTYE, BMP #### [address] MCH (RBC) [Entitic mass] 28.9 pg Normal 24.7-34.3 [facility] Comment on above: Performed By: #### C BETTYE, BMP #### [address] MCV (RBC) [Entitic vol] 90.0 fL Normal 80-100 [facility] Comment on above: Performed By: #### C BETTYE, BMP #### [address] Mean Corpuscular HGB Conc 32.1 g/dL Normal 32.0-35.0 [facility] Comment on above: Performed By: #### C BC, BMP #### [place] [address] [place] Monocytes (Bld) [#/Vol] 0.4 10*3/uL Normal 0.0-0.8 [facility] Comment on above: Performed By: #### C BC, BMP #### [place] [address] [place] Monocytes/100 WBC (Bld) 6.7 % Normal . [facility] Comment on above: Performed By: #### C BC, BMP #### [address] [address] [place] Neutrophils (Bld) [#/Vol] 3.7 10*3/uL Normal 1.8-7.7 [facility] Comment on above: Performed By: #### C BETTYE, BMP #### [facility] [address] Neutrophils/100 WBC (Bld) 68.4 % Normal . [facility] Comment on above: Performed By: #### C BETTYE, BMP #### [facility] [address] NRBC% 0.1 /100{WBC} Normal 0-0.5 [facility] Comment on above: Performed By: #### C BETTYE, BMP #### [facility] [address] Platelet mean volume (Bld) [Entitic vol] 7.9 fL Normal 6.3-10.7 [facility] Comment on above: Performed By: #### C BETTYE, BMP #### [address] Platelets (Bld) [#/Vol] 133 10*3/uL Low 150-450 [facility] Comment on above: Performed By: #### C BETTYE, BMP #### [address] RBC (Bld) [#/Vol] 2.77 10*6/uL Low 3.60-5.00 [facility] Comment on above: Performed By: #### C BETTYE, BMP #### [address] WBC (Bld) [#/Vol] 5.4 10*3/uL Normal 3.8-11.6 [facility] Comment on above: Performed By: #### C BETTYE, BMP #### [address] Glucose Poct Glucometerson 0 11-20-2022 Glucose [Mass/Vol] 130 mg/dL Normal [facility] Comment on above: Result Comment: [place] Glucose Reference Range is dependent on time and content of last meal. Glucose of more than 200 mg/dL in a nonstressed, ambulatory subject supports the diagnosis of Diabetes Mellitus. PERFORMED BY: [place] [address] PATHOLOGIST COMPLEX CARE NURSE KOBE VENCES M.D. Performed By: #### B MP, MG, FE and TIBC, AFSANEH, CBC #### [facility] [address] [place] [address] Glucose [Mass/Vol] 116 mg/dL Normal [facility] Comment on above: Result Comment: [place] om Glucose Reference Range is dependent on time and content of last meal. Glucose of more than 200 mg/dL in a nonstressed, ambulatory subject supports the diagnosis of Diabetes Mellitus. PERFORMED BY: [place] [address] PATHOLOGIST COMPLEX CARE NURSE KOBE VENCES M.D. Performed By: #### G LULS #### Point of Care testing , Glucose [Mass/Vol] 123 mg/dL Normal [facility] Comment on above: Result Comment: [place] om Glucose Reference Range is dependent on time and content of last meal. Glucose of more than 200 mg/dL in a nonstressed, ambulatory subject supports the diagnosis of Diabetes Mellitus. PERFORMED BY: [place] [address] PATHOLOGIST COMPLEX CARE NURSE KOBE VENCES M.D. Performed By: #### B MP, MG, FE and TIBC, AFSANEH, CBC #### [address] Glucose [Mass/Vol] 135 mg/dL Normal [facility] Comment on above: Result Comment: [place] om Glucose Reference Range is dependent on time and content of last meal. Glucose of more than 200 mg/dL in a nonstressed, ambulatory subject supports the diagnosis of Diabetes Mellitus. PERFORMED BY: [place] [address] PATHOLOGIST COMPLEX CARE NURSE KOBE VENCES M.D. Performed By: #### G LULS #### Point of Care testing , Basic Metabolic Panelon 07-2 0-2023 Anion gap [Moles/Vol] 9.8 mmol/L Normal 6.0-15.0 [facility] Comment on above: Performed By: #### B MP, MG, FE and TIBC, AFSANEH, CBC #### [address] Calcium [Mass/Vol] 8.1 mg/dL Low 8.6-10.3 [facility] Comment on above: Performed By: #### B MP, MG, FE and TIBC, AFSANEH, CBC #### [address] Chloride [Moles/Vol] 101 mmol/L Normal 98-107 [facility] Comment on above: Performed By: #### B MP, MG, FE and TIBC, AFSANEH, CBC #### [address] CO2 [Moles/Vol] 38.1 mmol/L High 21.0-31.0 [facility] Comment on above: Performed By: #### B MP, MG, FE and TIBC, AFSANEH, CBC #### [address] Creatinine [Mass/Vol] 1.76 mg/dL High 0.60-1.20 [facility] Comment on above: Performed By: #### B MP, MG, FE and TIBC, AFSANEH, CBC #### [place] [address] [place] Creatinine Clr Calc Pharmacy 25.90 [facility] Comment on above: Performed By: #### B MP, MG, FE and TIBC, AFSANEH, CBC #### [place] [address] [place] GFR/1.73 sq M.predicted MDRD (S/P/Bld) [Vol rate/Area] 30.185 mL/min/{1.73_m2} [facility] Comment on above: Performed By: #### B MP, MG, FE and TIBC, AFSANEH, CBC #### [place] [address] Glucose [Mass/Vol] 100 mg/dL Normal 70-100 [facility] Comment on above: Result Comment: [facility] Glucose Reference Range is dependent on time and content of last meal. Glucose of more than 200 mg/dL in a nonstressed, ambulatory subject supports the diagnosis of Diabetes Mellitus. ADA recommended reference range Performed By: #### B MP, MG, FE and TIBC, AFSANEH, CBC #### [address] Potassium [Moles/Vol] 4.9 mmol/L Normal 3.5-5.1 [facility] Comment on above: Performed By: #### B MP, MG, FE and TIBC, AFSANEH, CBC #### [address] Sodium [Moles/Vol] 144 mmol/L Normal 136-145 [facility] Comment on above: Performed By: #### B MP, MG, FE and TIBC, AFSANEH, CBC #### [address] Urea nitrogen [Mass/Vol] 28 mg/dL High 7-25 [facility] Comment on above: Performed By: #### B MP, MG, FE and TIBC, AFSANEH, CBC #### [address] Complete Blood Count Auto Di ffon 11-19-2022 Basophils (Bld) [#/Vol] 0.0 10*3/uL Normal 0.0-0.2 [facility] Comment on above: Result Comment: PERF ORMED BY: [place] [address] PATHOLOGIST COMPLEX CARE NURSE KOBE VENCES M.D. Performed By: #### B MP, MG, FE and TIBC, AFSANEH, CBC #### [place] [address] [place] Basophils/100 WBC (Bld) 0.7 % Normal . [facility] Comment on above: Performed By: #### B MP, MG, FE and TIBC, AFSANEH, CBC #### [address] Eosinophils (Bld) [#/Vol] 0.1 10*3/uL Normal 0.0-0.45 [facility] Comment on above: Performed By: #### B MP, MG, FE and TIBC, AFSANEH, CBC #### [address] Eosinophils/100 WBC (Bld) 2.0 % Normal . [facility] Comment on above: Performed By: #### B MP, MG, FE and TIBC, AFSANEH, CBC #### [address] Erythrocyte distribution width (RBC) [Ratio] 15.5 % High 11.9-15.3 [facility] Comment on above: Performed By: #### B MP, MG, FE and TIBC, AFSANEH, CBC #### [address] Hematocrit (Bld) [Volume fraction] 26.7 % Low 34.0-46.4 [facility] Comment on above: Performed By: #### B MP, MG, FE and TIBC, AFSANEH, CBC #### [address] Hemoglobin (Bld) [Mass/Vol] 8.5 g/dL Low 11.8-15.4 [facility] Comment on above: Performed By: #### B MP, MG, FE and TIBC, AFASNEH, CBC #### [address] Lymphocytes (Bld) [#/Vol] 1.6 10*3/uL Normal 1.00-4.8 [facility] Comment on above: Performed By: #### B MP, MG, FE and TIBC, AFSANEH, CBC #### [address] Lymphocytes/100 WBC (Bld) 25.1 % Normal . [facility] Comment on above: Performed By: #### B MP, MG, FE and TIBC, AFSANEH, CBC #### [address] MCH (RBC) [Entitic mass] 29.0 pg Normal 24.7-34.3 [facility] Comment on above: Performed By: #### B MP, MG, FE and TIBC, AFSANEH, CBC #### [address] MCV (RBC) [Entitic vol] 91.3 fL Normal 80-100 [facility] Comment on above: Performed By: #### B MP, MG, FE and TIBC, AFSANEH, CBC #### [address] Mean Corpuscular HGB Conc 31.8 g/dL Low 32.0-35.0 [facility] Comment on above: Performed By: #### B MP, MG, FE and TIBC, AFSANEH, CBC #### [address] Monocytes (Bld) [#/Vol] 0.4 10*3/uL Normal 0.0-0.8 [facility] Comment on above: Performed By: #### B MP, MG, FE and TIBC, AFSANEH, CBC #### [address] Monocytes/100 WBC (Bld) 6.6 % Normal . [facility] Comment on above: Performed By: #### B MP, MG, FE and TIBC, AFSANEH, CBC #### [address] Neutrophils (Bld) [#/Vol] 4.1 10*3/uL Normal 1.8-7.7 [facility] Comment on above: Performed By: #### B MP, MG, FE and TIBC, AFSANEH, CBC #### [address] Neutrophils/100 WBC (Bld) 65.6 % Normal . [facility] Comment on above: Performed By: #### B MP, MG, FE and TIBC, AFSANEH, CBC #### [address] [place] [address] [place] NRBC% 0.1 /100{WBC} Normal 0-0.5 [facility] Comment on above: Performed By: #### B MP, MG, FE and TIBC, AFSANEH, CBC #### [address] Platelet mean volume (Bld) [Entitic vol] 7.6 fL Normal 6.3-10.7 [facility] Comment on above: Performed By: #### B MP, MG, FE and TIBC, AFSANEH, CBC #### [address] Platelets (Bld) [#/Vol] 140 10*3/uL Low 150-450 [facility] Comment on above: Performed By: #### B MP, MG, FE and TIBC, AFSANEH, CBC #### [address] RBC (Bld) [#/Vol] 2.93 10*6/uL Low 3.60-5.00 [facility] Comment on above: Performed By: #### B MP, MG, FE and TIBC, AFSANEH, CBC #### [address] WBC (Bld) [#/Vol] 6.2 10*3/uL Normal 3.8-11.6 [facility] Comment on above: Performed By: #### B MP, MG, FE and TIBC, AFSANEH, CBC #### [address] Creatine Kinaseon 11-19-2022 CK [Catalytic activity/Vol] 35 U/L Normal 30-223 [facility] Comment on above: Performed By: #### B MP, MG, FE and TIBC, AFSANEH, CBC #### [address] CK [Catalytic activity/Vol] 31 U/L Normal 30-223 [facility] Comment on above: Order Comment: ultra sound come back in 10 mins Performed By: #### B MP, MG, FE and TIBC, AFSANEH, CBC #### [facility] [id number] [facility] Creatine kinase [Enzymatic a ctivity/volume] in Serum or PlasmaOrdered By: Gina Poole on 11-19-2022 CK [Catalytic activity/Vol] 31 U/L 30-223 [facility] ECH echo transthoracicon [facility] echo transthoracic [facility] [address] [place] [address] [place] [address] Echocardiogram Signed Patient: Kate Hagen MR#: [id number] 52 : 1950 Acct:[id number] Age/Sex: 71 / F ADM Date: 11/18/22 Loc: Room: [address] [place] [address] Type: ADM IN Attending Dr: Gina Poole DO Ordering Provider: Gina Poole DO Date of Service: 11/18/22 [facility] echo transthoracic: Shortness of Breath/Dyspnea Copies to: [...] 1.5 cm2 (more content not included)... Normal [facility] Ferritinon 11-19-2022 Ferritin [Mass/Vol] 388.8 ng/mL High 11.0-306.8 [facility] Comment on above: Result Comment: PERF ORMED BY: [place] [address] PATHOLOGIST COMPLEX CARE NURSE KOBE VENCES M.D. Performed By: #### B MP, MG, FE and TIBC, AFSANEH, CBC #### [facility] [address] [place] [address] [place] Ferritin [Mass/volume] in Se rum or PlasmaOrdered By: Gina Poole on 11-19-2022 Ferritin [Mass/Vol] 388.8 ng/mL 11.0-306.8 [facility] Glucose Poct Glucometerson 0 11-19-2022 Commemt1 Glu2: Cleaned Meter Normal [facility] Comment on above: Result Comment: PERF ORMED BY: [facility] [address] [place] [address] PATHOLOGIST COMPLEX CARE NURSE KOBE VENCES M.D. Performed By: #### B MP, MG, FE and TIBC, AFSANEH, CBC #### [facility] [address] [place] [address] Glucose [Mass/Vol] 168 mg/dL Normal [facility] Comment on above: Result Comment: [place] Glucose Reference Range is dependent on time and content of last meal. Glucose of more than 200 mg/dL in a nonstressed, ambulatory subject supports the diagnosis of Diabetes Mellitus. Performed By: #### B MP, MG, FE and TIBC, AFSANEH, CBC #### [facility] [address] [place] [address] Glucose [Mass/Vol] 140 mg/dL Normal [facility] Comment on above: Result Comment: [place] Glucose Reference Range is dependent on time and content of last meal. Glucose of more than 200 mg/dL in a nonstressed, ambulatory subject supports the diagnosis of Diabetes Mellitus. PERFORMED BY: [facility] [address] [place] [address] PATHOLOGIST COMPLEX CARE NURSE KOBE VENCES M.D. Performed By: #### B MP, MG, FE and TIBC, AFSANEH, CBC #### [facility] [address] Iron [Mass/volume] in Serum or PlasmaOrdered By: Gina Poole on 11-19-2022 Iron [Mass/Vol] 28 ug/dL 50-212 [facility] Iron and TIBC Profileon 11-01 0-2022 % Iron Saturation 11.8 % Low 20-50 [facility] [place] [facility] Comment on above: Performed By: #### B MP, MG, FE and TIBC, AFSANEH, CBC #### [facility] [address] Iron [Mass/Vol] 28 ug/dL Low 50-212 [facility] Comment on above: Performed By: #### B MP, MG, FE and TIBC, AFSANEH, CBC #### [facility] [address] Total Iron Binding Capacity 238 ug/dL Low 255-450 [facility] Comment on above: Performed By: #### B MP, MG, FE and TIBC, AFSANEH, CBC #### [facility] [address] Transferrin [Mass/Vol] 170 mg/dL Low 203-362 [facility] Comment on above: Performed By: #### B MP, MG, FE and TIBC, AFSANEH, CBC #### [facility] [address] Iron binding capacity [Mass/ volume] in Serum or PlasmaOrdered By: Gina Poole on 11-19-2022 Iron binding capacity [Mass/Vol] 238 ug/dL 255-450 [facility] Iron saturation [Mass Fracti on] in Serum or PlasmaOrdered By: Gina Poole on 11-19-2022 Iron saturation [Mass fraction] 11.8 % 20-50 [facility] Magnesiumon 11-19-2022 Magnesium [Mass/Vol] 1.5 mg/dL Low 1.9-2.7 [facility] Comment on above: Performed By: #### B MP, MG, FE and TIBC, AFSANEH, CBC #### [facility] [address] Magnesium [Mass/volume] in S arti or PlasmaOrdered By: Gina Poole on 11-19-2022 Magnesium [Mass/Vol] 1.5 mg/dL 1.9-2.7 [facility] No Panel InformationOrdered By: Gina Poole on 11-19-2022 Bedside Glucose Comment Glu2: cleaned meter [facility] Transferrin [Mass/volume] in Serum or PlasmaOrdered By: Gina Poole on 11-19-2022 Transferrin [Mass/Vol] 170 mg/dL 203-362 [facility] Troponin I High Sensitivityo n 11-19-2022 Troponin I High Sensitivity 17.3 pg/mL High 0.0-15.0 [facility] Comment on above: Result Comment: PERF ORMED BY: [facility] [address] [place] [address] PATHOLOGIST COMPLEX CARE NURSE KOBE VENCES M.D. Performed By: #### B MP, MG, FE and TIBC, AFSANEH, CBC #### [facility] [address] Troponin I High Sensitivity 19.6 pg/mL High 0.0-15.0 [facility] Comment on above: Order Comment: ultra sound come back in 10 mins Result Comment: PERF ORMED BY: [place] [address] PATHOLOGIST COMPLEX CARE NURSE KOBE VENCES M.D. Performed By: #### B MP, MG, FE and TIBC, AFSANEH, CBC #### [facility] [address] Troponin I.cardiac [Mass/vol ume] in Serum or Plasma by Detection limit <= 0.01 ng/Ordered By: Gina Poole on 11-19-2022 Troponin I.cardiac DL <= 0.01 ng/mL [Mass/Vol] 19.6 pg/mL 0.0-15.0 [facility] Activated partial thrombopla stin time (aPTT) in platelet poor plasma by coagulation aOrdered By: Venkatesh Trammell on 11-18-2022 aPTT Coag (PPP) [Time] 35.1 s 25.1-36.5 [facility] Alanine aminotransferase [En zymatic activity/volume] in Serum or PlasmaOrdered By: Venkatesh Trammell on 11-18-2022 ALT [Catalytic activity/Vol] 10 U/L 7-52 [facility] Albumin [Mass/volume] in Ser um or Plasma by Bromocresol green (BCG) dye binding methoOrdered By: Venkatesh Trammell on 11-18-2022 Albumin BCG dye [Mass/Vol] 3.4 g/dL 3.5-5.7 [facility] Alkaline phosphatase [Enzyma tic activity/volume] in Serum or PlasmaOrdered By: Venkatesh Trammell on 11-18-2022 ALP [Catalytic activity/Vol] 54 U/L 34-104 [facility] Aspartate aminotransferase [ Enzymatic activity/volume] in Serum or PlasmaOrdered By: Venkatesh Trammell on 11-18-2022 AST [Catalytic activity/Vol] 15 U/L 13-39 [facility] B-Type Natriuretic Peptideon 11-18-2022 Natriuretic peptide B (Bld) [Mass/Vol] 2080.0 pg/mL High 5-100 [facility] Comment on above: Result Comment: PERF ORMED BY: [place] [address] PATHOLOGIST COMPLEX CARE NURSE KOBE VENCES M.D. Performed By: #### B MP, MG, FE and TIBC, AFSANEH, CBC #### [facility] [address] Basic Metabolic Panelon 10-31 Anion gap [Moles/Vol] 10.0 mmol/L Normal 6.0-15.0 [facility] Comment on above: Performed By: #### B MP, MG, FE and TIBC, AFSANEH, CBC #### [facility] [id number] [facility] Calcium [Mass/Vol] 8.1 mg/dL Low 8.6-10.3 [facility] Comment on above: Performed By: #### B MP, MG, FE and TIBC, AFSANEH, CBC #### [facility] [address] Chloride [Moles/Vol] 101 mmol/L Normal 98-107 [facility] Comment on above: Performed By: #### B MP, MG, FE and TIBC, AFSANEH, CBC #### [facility] [address] CO2 [Moles/Vol] 36.2 mmol/L High 21.0-31.0 [facility] Comment on above: Performed By: #### B MP, MG, FE and TIBC, AFSANEH, CBC #### [facility] [address] Creatinine [Mass/Vol] 1.78 mg/dL High 0.60-1.20 [facility] Comment on above: Performed By: #### B MP, MG, FE and TIBC, AFSANEH, CBC #### [address] Creatinine Clr Calc Pharmacy 25.51 [facility] Comment on above: Result Comment: PERF ORMED BY: [place] [address] PATHOLOGIST COMPLEX CARE NURSE KOBE VENCES M.D. Performed By: #### B MP, MG, FE and TIBC, AFSANEH, CBC #### [address] GFR/1.73 sq M.predicted MDRD (S/P/Bld) [Vol rate/Area] 29.779 mL/min/{1.73_m2} [facility] Comment on above: Performed By: #### B MP, MG, FE and TIBC, AFSANEH, CBC #### [facility] [address] Glucose [Mass/Vol] 101 mg/dL High 70-100 [facility] Comment on above: Result Comment: [facility] Glucose Reference Range is dependent on time and content of last meal. Glucose of more than 200 mg/dL in a nonstressed, ambulatory subject supports the diagnosis of Diabetes Mellitus. ADA recommended reference range Performed By: #### B MP, MG, FE and TIBC, AFSANEH, CBC #### [facility] [address] Potassium [Moles/Vol] 5.2 mmol/L High 3.5-5.1 [facility] Comment on above: Performed By: #### B MP, MG, FE and TIBC, AFSANEH, CBC #### [facility] [address] Sodium [Moles/Vol] 142 mmol/L Normal 136-145 [facility] Comment on above: Performed By: #### B MP, MG, FE and TIBC, AFSANEH, CBC #### [facility] [address] Urea nitrogen [Mass/Vol] 29 mg/dL High 7-25 [facility] Comment on above: Performed By: #### B MP, MG, FE and TIBC, AFSANEH, CBC #### [facility] [address] Basophils Auto (Bld) [#/Vol] Ordered By: Venkatesh Trammell on 11-18-2022 Basophils (Bld) [#/Vol] 0.0 10*3/uL 0.0-0.2 [facility] Basophils/100 WBC Auto (Bld) Ordered By: Venkatesh Trammell on 11-18-2022 Basophils/100 WBC (Bld) 0.7 % . [facility] Bilirubin.direct [Mass/volum e] in Serum or PlasmaOrdered By: Venkatesh Trammell on 11-18-2022 Bilirubin.direct [Mass/Vol] 0.10 mg/dL 0.03-0.18 [facility] Bilirubin.total [Mass/volume ] in Serum or PlasmaOrdered By: Venkatesh Trammell on 11-18-2022 Bilirubin [Mass/Vol] 0.4 mg/dL 0.3-1.0 [facility] Calcium [Mass/volume] in Ser um or PlasmaOrdered By: Venkatesh Trammell on 11-18-2022 Calcium [Mass/Vol] 8.1 mg/dL 8.6-10.3 [facility] Carbon dioxide, total [Moles /volume] in Serum or PlasmaOrdered By: Venkatesh Trammell on 11-18-2022 CO2 [Moles/Vol] 36.2 mmol/L 21.0-31.0 [facility] Chloride [Moles/volume] in S arti or PlasmaOrdered By: Venkatesh Trammell on 11-18-2022 Chloride [Moles/Vol] 101 mmol/L 98-107 [facility] Complete Blood Count Auto Di ffon 11-18-2022 Basophils (Bld) [#/Vol] 0.0 10*3/uL Normal 0.0-0.2 [facility] Comment on above: Result Comment: PERF ORMED BY: [place] [address] PATHOLOGIST COMPLEX CARE NURSE KOBE VENCES M.D. Performed By: #### B MP, MG, FE and TIBC, AFSANEH, CBC #### [address] Basophils/100 WBC (Bld) 0.7 % Normal . [facility] Comment on above: Performed By: #### B MP, MG, FE and TIBC, AFSANEH, CBC #### [address] Eosinophils (Bld) [#/Vol] 0.1 10*3/uL Normal 0.0-0.45 [facility] Comment on above: Performed By: #### B MP, MG, FE and TIBC, AFSANEH, CBC #### [address] Eosinophils/100 WBC (Bld) 1.7 % Normal . [facility] Comment on above: Performed By: #### B MP, MG, FE and TIBC, AFSANEH, CBC #### [address] Erythrocyte distribution width (RBC) [Ratio] 15.2 % Normal 11.9-15.3 [facility] Comment on above: Performed By: #### B MP, MG, FE and TIBC, AFSANEH, CBC #### [address] Hematocrit (Bld) [Volume fraction] 26.8 % Low 34.0-46.4 [facility] Comment on above: Performed By: #### B MP, MG, FE and TIBC, AFSANEH, CBC #### [address] Hemoglobin (Bld) [Mass/Vol] 8.7 g/dL Low 11.8-15.4 [facility] Comment on above: Performed By: #### B MP, MG, FE and TIBC, AFSANEH, CBC #### [address] Lymphocytes (Bld) [#/Vol] 1.5 10*3/uL Normal 1.00-4.8 [facility] Comment on above: Performed By: #### B MP, MG, FE and TIBC, AFSANEH, CBC #### [address] Lymphocytes/100 WBC (Bld) 22.5 % Normal . [facility] Comment on above: Performed By: #### B MP, MG, FE and TIBC, AFSANEH, CBC #### [address] MCH (RBC) [Entitic mass] 29.1 pg Normal 24.7-34.3 [facility] Comment on above: Performed By: #### B MP, MG, FE and TIBC, AFSANEH, CBC #### [address] MCV (RBC) [Entitic vol] 89.8 fL Normal 80-100 [facility] Comment on above: Performed By: #### B MP, MG, FE and TIBC, AFSANEH, CBC #### [address] Mean Corpuscular HGB Conc 32.4 g/dL Normal 32.0-35.0 [facility] Comment on above: Performed By: #### B MP, MG, FE and TIBC, AFSANEH, CBC #### [address] Monocytes (Bld) [#/Vol] 0.4 10*3/uL Normal 0.0-0.8 [facility] Comment on above: Performed By: #### B MP, MG, FE and TIBC, AFSANEH, CBC #### [address] Monocytes/100 WBC (Bld) 16.05 % Normal 0.00-20.00 [facility] Comment on above: Performed By: #### B MP, MG, FE and TIBC, AFSANEH, CBC #### [address] Monocytes/100 WBC (Bld) 5.7 % Normal . [facility] Comment on above: Performed By: #### B MP, MG, FE and TIBC, AFSANEH, CBC #### [address] Neutrophils (Bld) [#/Vol] 4.7 10*3/uL Normal 1.8-7.7 [facility] Comment on above: Performed By: #### B MP, MG, FE and TIBC, AFSANEH, CBC #### [address] Neutrophils/100 WBC (Bld) 69.4 % Normal . [facility] Comment on above: Performed By: #### B MP, MG, FE and TIBC, AFSANEH, CBC #### [address] NRBC% 0.0 /100{WBC} Normal 0-0.5 [facility] Comment on above: Performed By: #### B MP, MG, FE and TIBC, AFSANEH, CBC #### [address] Platelet mean volume (Bld) [Entitic vol] 8.2 fL Normal 6.3-10.7 [facility] Comment on above: Performed By: #### B MP, MG, FE and TIBC, AFSANEH, CBC #### [address] Platelets (Bld) [#/Vol] 169 10*3/uL Normal 150-450 [facility] Comment on above: Performed By: #### B MP, MG, FE and TIBC, AFSANEH, CBC #### [address] RBC (Bld) [#/Vol] 2.98 10*6/uL Low 3.60-5.00 [facility] Comment on above: Performed By: #### B MP, MG, FE and TIBC, AFSANEH, CBC #### [address] WBC (Bld) [#/Vol] 6.8 10*3/uL Normal 3.8-11.6 [facility] Comment on above: Performed By: #### B MP, MG, FE and TIBC, AFSANEH, CBC #### [address] Creatine Kinaseon 11-18-2022 CK [Catalytic activity/Vol] 46 U/L Normal 30-223 [facility] Comment on above: Performed By: #### B MP, MG, FE and TIBC, AFSANEH, CBC #### [address] CK [Catalytic activity/Vol] 44 U/L Normal 30-223 [facility] Comment on above: Performed By: #### B MP, MG, FE and TIBC, AFSANEH, CBC #### [address] Creatine kinase [Enzymatic a ctivity/volume] in Serum or PlasmaOrdered By: Gina Poole on 11-18-2022 CK [Catalytic activity/Vol] 44 U/L [facility] Creatinine [Mass/volume] in Serum or PlasmaOrdered By: Venkatesh Trammell on 11-18-2022 Creatinine [Mass/Vol] 1.78 mg/dL 0.60-1.20 [facility] ECG 12 lead ECGon 11-18-2022 ECG 12 lead ECG [facility] [place] [address] Electrocardiograph Report Signed Patient: Kate Hagen MR#: [id number] 52 : 1950 Acct:[id number] Age/Sex: 71 / F ADM Date: 11/18/22 Loc: Room: [address] [place] [address] Type: ADM IN Attending Dr: Gina Poole [...] ECGs available Confirmed by Venkatesh Trammell DO ([id number]) on 11/19/2022 12:36:06 AM Referred By: Electronically Signed By:Venkatesh Trammell DO Transcribed By: MUS Signed By Venkatesh Trammell DO [address] [facility] Eosinophils Auto (Bld) [#/Vo l]Ordered By: Venkatesh Trammell on 11-18-2022 Eosinophils (Bld) [#/Vol] 0.1 10*3/uL 0.0-0.45 [facility] Eosinophils/100 WBC Auto (Bl d)Ordered By: Venkatesh Trammell on 11-18-2022 Eosinophils/100 WBC (Bld) 1.7 % . [facility] Erythrocyte distribution wid th Auto (RBC) [Ratio]Ordered By: Venkatesh Trammell on 11-18-2022 Erythrocyte distribution width (RBC) [Ratio] 15.2 % 11.9-15.3 [facility] Globulin Calc (S) [Mass/Vol] Ordered By: Venkatesh Trammell on 11-18-2022 Globulin (S) [Mass/Vol] 3.2 g/dL [facility] Glucose [Mass/volume] in Ser um or PlasmaOrdered By: Venkatesh Trammell on 11-18-2022 Glucose [Mass/Vol] 101 mg/dL 70-100 [facility] Comment on above: ADA recommended refe rence rangeRandom Glucose Reference Range is dependent on time and content of last meal. Glucose of more than 200 mg/dL in a nonstressed, ambulatory subject supports the diagnosis of Diabetes Mellitus. Hematocrit Auto (Bld) [Volum e fraction]Ordered By: Venkatesh Trammell on 11-18-2022 Hematocrit (Bld) [Volume fraction] 26.8 % 34.0-46.4 [facility] Hemoglobin [Mass/volume] in BloodOrdered By: Venkatesh Trammell on 11-18-2022 Hemoglobin (Bld) [Mass/Vol] 8.7 g/dL 11.8-15.4 [facility] Hepatic Panelon 11-18-2022 Albumin [Mass/Vol] 3.4 g/dL Low 3.5-5.7 [facility] Comment on above: Performed By: #### H EPATIC #### [address] Albumin/Globulin [Mass ratio] 1.1 {ratio} Normal [facility] Comment on above: Performed By: #### H EPATIC #### [address] ALP [Catalytic activity/Vol] 54 U/L Normal 34-104 [facility] Comment on above: Result Comment: PERF ORMED BY: [place] [address] PATHOLOGIST COMPLEX CARE NURSE KOBE VENCES M.D. Performed By: #### H EPATIC #### [address] ALT [Catalytic activity/Vol] 10 U/L Normal 7-52 [facility] Comment on above: Performed By: #### H EPATIC #### [address] AST [Catalytic activity/Vol] 15 U/L Normal 13-39 [facility] Comment on above: Performed By: #### H EPATIC #### [facility] [address] [place] [address] [place] Bilirubin [Mass/Vol] 0.4 mg/dL Normal 0.3-1.0 [facility] Comment on above: Performed By: #### H EPATIC #### [facility] [address] Bilirubin,Indirect 0.3 mg/dL Normal [facility] Comment on above: Performed By: #### H EPATIC #### [facility] [address] Bilirubin.indirect [Mass/Vol] 0.10 mg/dL Normal 0.03-0.18 [facility] Comment on above: Performed By: #### H EPATIC #### [facility] [address] Globulin (S) [Mass/Vol] 3.2 g/dL Normal [facility] Comment on above: Performed By: #### H EPATIC #### [facility] [address] Protein [Mass/Vol] 6.6 g/dL Normal 6.4-8.9 [facility] Comment on above: Performed By: #### H EPATIC #### [facility] [address] [place] [address] Laboratory - CoagulationOrde red By: Venkatesh Trammell on 11-18-2022 PT Coag (PPP) [Time] 17.6 s 9.0-12.9 [facility] Leukocytes [#/volume] correc loan for nucleated erythrocytes in Blood by Automated counOrdered By: Venkatesh Trammell on 11-18-2022 WBC corrected for nucl RBC Auto (Bld) [#/Vol] 6.8 10*3/uL 3.8-11.6 [facility] Lymphocytes Auto (Bld) [#/Vo l]Ordered By: Venkatesh Trammell on 11-18-2022 Lymphocytes (Bld) [#/Vol] 1.5 10*3/uL 1.00-4.8 [facility] Lymphocytes/100 WBC Auto (Bl d)Ordered By: Venkatesh Trammell on 11-18-2022 Lymphocytes/100 WBC (Bld) 22.5 % . [facility] MCH Auto (RBC) [Entitic mass ]Ordered By: Venkatesh Trammell on 11-18-2022 MCH (RBC) [Entitic mass] 29.1 pg 24.7-34.3 [facility] MCHC Auto (RBC) [Mass/Vol]Or dered By: Venkatesh Trammell on 11-18-2022 MCHC (RBC) [Mass/Vol] 32.4 g/dL 32.0-35.0 [facility] MCV Auto (RBC) [Entitic vol] Ordered By: Venkatesh Trammell on 11-18-2022 MCV (RBC) [Entitic vol] 89.8 fL 80-100 [facility] Monocyte distribution width [Entitic volume] in Blood by AutomatedOrdered By: Venkatesh Trammell on 11-18-2022 Monocyte distribution width Auto (Bld) [Entitic vol] 16.05 % 0.00-20.00 [facility] Monocytes Auto (Bld) [#/Vol] Ordered By: Venkatesh Trammell on 11-18-2022 Monocytes (Bld) [#/Vol] 0.4 10*3/uL 0.0-0.8 [facility] Monocytes/100 WBC Auto (Bld) Ordered By: Venkatesh Trammell on 11-18-2022 Monocytes/100 WBC (Bld) 5.7 % . [facility] Natriuretic peptide B [Mass/ Vol]Ordered By: Venkatesh Trammell on 11-18-2022 Natriuretic peptide B (Bld) [Mass/Vol] 2080.0 pg/mL 5-100 [facility] Neutrophils Auto (Bld) [#/Vo l]Ordered By: Venkatesh Trammell on 11-18-2022 Neutrophils (Bld) [#/Vol] 4.7 10*3/uL 1.8-7.7 [facility] Neutrophils/100 WBC Auto (Bl d)Ordered By: Venkatesh Trammell on 11-18-2022 Neutrophils/100 WBC (Bld) 69.4 % . [facility] No Panel InformationOrdered By: Venkatesh Trammell on 11-18-2022 Estimated GFR (CKD-EPI) 29.779 mL/Min [facility] Creatinine Clearance (Chem 25.51 [facility] Nucleated erythrocytes [Pres ence] in Blood by Automated countOrdered By: Venkatesh Trammell on 11-18-2022 Nucleated RBC Auto Ql (Bld) 0.0 /100{WBC} 0-0.5 [facility] Partial Thromboplastin Timeo n 11-18-2022 aPTT Coag (Bld) [Time] 35.1 s Normal 25.1-36.5 Fi [facility] Comment on above: Result Comment: PERF ORMED BY: [place] [address] PATHOLOGIST COMPLEX CARE NURSE KOBE VENCES M.D. Performed By: #### B MP, MG, FE and TIBC, AFSANEH, CBC #### [address] Platelet mean volume Auto (B ld) [Entitic vol]Ordered By: Venkatesh Trammell on 11-18-2022 Platelet mean volume (Bld) [Entitic vol] 8.2 fL 6.3-10.7 [facility] Platelet poor plasma interna tional normalized ratio (INR) by coagulation assay (relatOrdered By: Venkatesh Trammell on 11-18-2022 INR Coag (PPP) [Relative time] 1.5 {INR} [facility] Comment on above: INR Therapeutic Rang e [...] Platelets (Bld) [#/Vol] 169 10*3/uL 150-450 [facility] Potassium [Moles/volume] in Serum or PlasmaOrdered By: Venkatesh Trammell on 11-18-2022 Potassium [Moles/Vol] 5.2 mmol/L 3.5-5.1 [facility] Protein [Mass/volume] in Ser um or PlasmaOrdered By: Venkatesh Tramemll on 11-18-2022 Protein [Mass/Vol] 6.6 g/dL 6.4-8.9 [facility] Prothrombin Time INRon 11-18 INR Coag (PPP) [Relative time] 1.5 {INR} Normal [facility] Comment on above: Result Comment: INR Therapeutic [...] #### [facility] [address] PT Coag (PPP) [Time] 17.6 s High 9.0-12.9 [facility] Comment on above: Performed By: #### B MP, MG, FE and TIBC, AFSANEH, CBC #### [facility] [address] RBC Auto (Bld) [#/Vol]Ordere d By: Venkatesh Trammell on 11-18-2022 RBC (Bld) [#/Vol] 2.98 10*6/uL 3.60-5.00 [facility] Serum or plasma albumin/glob ulin mass ratioOrdered By: Venkatesh Trmamell on 11-18-2022 Albumin/Globulin [Mass ratio] 1.1 {ratio} [facility] Serum or plasma anion gap de terminationOrdered By: Venkatesh Trammell on 11-18-2022 Anion gap [Moles/Vol] 10.0 mmol/L 6.0-15.0 [facility] Serum or plasma non-glucuron idated bilirubin measurement (mass/volume)Ordered By: Venkatesh Trammell on 11-18-2022 Bilirubin.indirect [Mass/Vol] 0.3 mg/dL [facility] Sodium [Moles/volume] in Ser um or PlasmaOrdered By: Venkatesh Trammell on 11-18-2022 Sodium [Moles/Vol] 142 mmol/L 136-145 [facility] Troponin I High Sensitivityo n 11-18-2022 Troponin I High Sensitivity 18.0 pg/mL High 0.0-15.0 [facility] Comment on above: Result Comment: PERF ORMED BY: [place] [address] PATHOLOGIST COMPLEX CARE NURSE KOBE VENCES M.D. Performed By: #### B MP, MG, FE and TIBC, AFSANEH, CBC #### [place] [id number] [facility] Troponin I High Sensitivity 18.4 pg/mL High 0.0-15.0 [facility] Comment on above: Result Comment: PERF ORMED BY: [place] [address] PATHOLOGIST COMPLEX CARE NURSE KOBE VENCES M.D. Performed By: #### B MP, MG, FE and TIBC, AFSANEH, CBC #### [address] [facility] Troponin I.cardiac [Mass/vol ume] in Serum or Plasma by Detection limit <= 0.01 ng/Ordered By: Gina Poole on 11-18-2022 Troponin I.cardiac DL <= 0.01 ng/mL [Mass/Vol] 18.4 pg/mL 0.0-15.0 [facility] Urea nitrogen [Mass/volume] in Serum or PlasmaOrdered By: Venkatesh Trammell on 11-18-2022 Urea nitrogen [Mass/Vol] 29 mg/dL 7-25 [facility] WBC Auto (Bld) [#/Vol]Ordere d By: Venkatesh Trammell on 11-18-2022 WBC (Bld) [#/Vol] 6.8 10*3/uL 3.8-11.6 [facility] XR chest 1V portableon 11-18 XR chest 1V portable [facility] Main [address] [address] XRay Report Signed Patient: Kate Hagen MR#: [id number] 52 : 1950 Acct:[id number] Age/Sex: 71 / F ADM Date: 11/18/22 [...] Ferreira Jr., D.OJesse11/18/2022 5:40 PM Dictation Location: [facility] Transcribed By: [facility] 11/18/221739 Dictated By: Perez Ferreira Jr, DO 11/18/22 173 Signed By: 11/18/221739 [facility] 36on 10-30-2022 36 Milena from [facility] [place] called to make you aware that patient has gained 5lbs since the [employer] increase on 10/27. She said her lungs are clear and diminished. She is not coughing and she is not edematous. Did you want to make any other changes? Please advise. Thanks. [facility] Telephoneon 10-30-2022 Telephone [id number] Maria G Hagen 1950 Provider Department Center 10/30/2022 PHILL HALEY Family History Problem Relation Age of Onset Stroke Mother Hypertension Mother Heart attack Father Hypertension Sister Heart attack Sister Heart attack Brother Family Status - Relation Status Age at Mother Father Sister Brother [facility] Office Visiton 10-27-2022 Follow-up visit [id number] Maria G Hagen 1950 Provider Department Center 10/27/2022 PHILL HALEY Family History Problem Relation Age of Onset Stroke Mother Hypertension Mother Heart attack Father Hypertension Sister Heart attack Sister Heart attack Brother Family Status - Relation Status Age at Mother Father Sister Brother Level of Service:09930 AL OFFICE/OUTPATIENT ESTABLISHED MOD MDM 30-39 MIN Normal [facility] Office Visiton 09-22-2022 Follow-up visit [id number] Maria G Hagen 1950 F Date Provider Department Center 09/22/2022 271-CRISALPARUBYNadirSILVA CARD [facility] Family History Problem Relation Age of Onset Stroke Mother Hypertension Mother Heart attack Father Hypertension Sister Heart attack Sister Heart attack Brother Family Status - Relation Status Age at Mother Father Sister Brother Level of Service:56514 AL OFFICE/OUTPATIENT ESTABLISHED LOW MDM 20-29 MIN Reason for Visit and Comments: Follow-up [785505] - Event monitor follow up Normal [facility] BNPon 09-08-2022 Natriuretic peptide B (Bld) [Mass/Vol] 62141.0 pg/mL Critically high <=900.0 [facility] Comment on above: Performed By: #### C MP, BNP ####[facility] Lelnmbwpum[address] [place], [place] [address]Dr. Ivette Hernandez CBC AUTO DIFFon 09-08-2022 BASO # 0.0 103/ul Normal 0.0-0.1 [facility] Comment on above: Performed By: #### C BC ####[facility] [address] [place], [place] [address]Dr. Ivette Hernandez Basophils/100 WBC (Bld) 0.0 % Critically low 0.2-2.0 [facility] Comment on above: Performed By: #### C BC ####[facility] [address] [place], [place] [address]Dr. Ivette Hernandez EO # 0.0 103/ul Normal 0.0-0.7 [facility] Comment on above: Performed By: #### C BC ####[facility] W[address]ib[address]zcv[address] [place], [place] [address]Dr. Ivette Hernandez Eosinophils/100 WBC (Bld) 0.0 % Critically low 0.9-7.0 [facility] Comment on above: Performed By: #### C BC ####[facility] F[address]px[address] [place], [place] [address]Dr. Ivette Hernandez Erythrocyte distribution width (RBC) [Ratio] 14.0 % Normal 11.0-15.0 [facility] Comment on above: Performed By: #### C BC ####[facility] X[address] [place] [address]Dr. Ivette Hernandez Hematocrit (Bld) [Volume fraction] 26.0 % Critically low 36.0-48.0 [facility] Comment on above: Performed By: #### C BC ####[facility] [address] [place] [address]Dr. Cherjun Hernandez Hemoglobin (Bld) [Mass/Vol] 8.2 g/dL Critically low 12.0-16.0 [facility] Comment on above: Performed By: #### C BC ####[facility] I[address] [place], [place] [address]Dr. Ivette Hernandez IG # 0.06 10e3/ul Critically high 0.00-0.03 [facility] Comment on above: Performed By: #### C BC ####[facility] C[address]xkx[address] [place], [place] [address]Dr. Ivette Hernandez IG % 0.7 % Critically high 0.0-0.5 [facility] Comment on above: Performed By: #### C BC ####[facility] [address] [place], [place] [address]Dr. Ivette Hernandez LYMPH # 0.7 103/ul Critically low 1.2-3.8 [facility] Comment on above: Performed By: #### C BC ####[facility] Ifckin[address]ti[address] [place], [place] [address]Dr. Ivette Hernandez Lymphocytes/100 WBC (Bld) 8.2 % Critically low 20.5-60.0 [facility] Comment on above: Performed By: #### C BC ####[facility] Yeutfvpiqc[address] [place], [place] [address]Dr. Ivette Hernandez MANUAL DIFF REQ NO Normal [facility] Comment on above: Performed By: #### C BC ####[facility] Shvmtf[address]ud[address] [place], [place] [address]Dr. Ivette Hernandez MCH (RBC) [Entitic mass] 29.4 pg Normal 26.7-34.0 [facility] Comment on above: Performed By: #### C BC ####[facility] [address] [place] [id number]. Ivette Hernandez MCHC (RBC) [Mass/Vol] 31.5 g/dL Normal 29.9-35.2 [facility] Comment on above: Performed By: #### C BC ####[facility] [address] [place] [address]Dr. Ivette Hernandez MCV (RBC) [Entitic vol] 93.2 fL Normal 81.0-99.0 [facility] Comment on above: Performed By: #### C BC ####[facility] [address] [place] [address]Dr. Ivette David MONO # 0.3 103/ul Normal 0.3-0.8 [facility] Comment on above: Performed By: #### C BC ####[facility] V[address]iz[address] [place], [place] [address]Dr. Cherjun Hernandez Monocytes/100 WBC (Bld) 3.5 % Normal 1.7-12.0 [facility] Comment on above: Performed By: #### C BC ####[facility] Hb[address] [place], [place] [address]Dr. Ivette Hernandez NEUT # 7.6 103/ul Critically high 1.4-6.5 [facility] Comment on above: Performed By: #### C BC ####[facility] Qeblembgpb[address] [place] [address]Dr. Ivette David Neutrophils/100 WBC (Bld) 87.6 % Critically high 43.0-75.0 [facility] Comment on above: Performed By: #### C BC ####[facility] [address]aw[address] [place], [place] [address]Dr. Ivette David Platelet mean volume (Bld) [Entitic vol] 9.6 fL Normal 9.5-13.5 [facility] Comment on above: Performed By: #### C BC ####[facility] [address] [place] [id number]. Ivette Hernandez PLT 224 103/ul Normal 150-450 [facility] Comment on above: Performed By: #### C BC ####[facility] Rsoriqcumm[address] [place] [id number]. Ivette Hernandez RBC 2.79 106/ul Critically low 4.20-5.40 [facility] Comment on above: Performed By: #### C BC ####[facility] Rojuordapy[address] [place] [address]Dr. Ivette Hernandez WBC 8.7 103/ul Normal 4.0-11.0 [facility] Comment on above: Performed By: #### C BC ####[facility] Iggq[address]cedfq2514 [place] [address]Dr. Ivette Hernandez PROF 14(COMP METB)on 023 Albumin [Mass/Vol] 2.5 g/dL Critically low 3.4-5.0 [facility] Comment on above: Performed By: #### C MP, BNP ####[facility] [address] [place] [address]Dr. Ivette Hernandez Albumin/Globulin [Mass ratio] 0.6 {ratio} Normal [facility] Comment on above: Performed By: #### C MP, BNP ####[facility] Slbbpehpdj[address]32 [place] [address]Dr. Ivette Hernandez ALP [Catalytic activity/Vol] 66 U/L Normal 46-116 [facility] Comment on above: Performed By: #### C MP, BNP ####[facility] Waowgulybg[address] [place] [address]Dr. Ivette Hernandez ALT [Catalytic activity/Vol] 20 U/L Normal 14-59 [facility] Comment on above: Performed By: #### C MP, BNP ####[facility] Douqcfdjii6525 [place] [address]Dr. Ivette Hernandez Anion gap [Moles/Vol] 9.1 mmol/L Normal [facility] Comment on above: Performed By: #### C MP, BNP ####[facility] Zslgajhiqr8461 [place] [address]Dr. Ivette Hernandez AST [Catalytic activity/Vol] 11 U/L Critically low 15-37 [facility] Comment on above: Performed By: #### C MP, BNP ####[facility] Exeeocikpt[address] [place], [place] [address]Dr. Ivette Hernandez Bilirubin [Mass/Vol] 0.4 mg/dL Normal 0.2-1.0 [facility] Comment on above: Performed By: #### C MP, BNP ####[facility] [address]frjiqyb[address] [place], [place] [address]Dr. Ivette Hernandez Calcium [Mass/Vol] 8.5 mg/dL Normal 8.5-10.1 [facility] Comment on above: Performed By: #### C MP, BNP ####[facility] Ffehfdtksx[address] [place], [place] [address]Dr. Ivette Hernandez Chloride [Moles/Vol] 103 mmol/L Normal 98-107 [facility] Comment on above: Performed By: #### C MP, BNP ####[facility] Tlxrqvnhkr[address] [place], [place] [address]Dr. Ivette Hernandez CO2 [Moles/Vol] 37.1 mmol/L Critically high 21.0-32.0 [facility] Comment on above: Performed By: #### C MP, BNP ####[facility] Bfztdclmkg[address] [place], [place] [address]Dr. Ivette Hernandez Creatinine [Mass/Vol] 1.87 mg/dL Critically high 0.55-1.02 [facility] Comment on above: Performed By: #### C MP, BNP ####[facility] Qzpgbtjogc[address] [place], [place] [address]Dr. Ivette Hernandez EGFR-AF MALAWIAN 32 mL/min/1.73m2 Critically low >=60 [facility] Comment on above: Performed By: #### C MP, BNP ####[facility] Sfojjcghtd[address] [place], [place] [address]Dr. Ivette David EGFR-NON AF MALAWIAN 26 mL/min/1.73m2 Critically low >=60 [facility] Comment on above: Performed By: #### C MP, BNP ####[facility] Holpioqnnr4351 [place] [address]Dr. Ivette Hernandez Globulin (S) [Mass/Vol] 4.2 g/dL Normal [facility] Comment on above: Performed By: #### C MP, BNP ####[facility] Tjnbafbwmz[address] [place], [place] [address]Dr. Ivette Hernandez Glucose [Mass/Vol] 196 mg/dL Critically high 74-106 [facility] Comment on above: Performed By: #### C MP, BNP ####[facility] Uxdasgtqfj[address] [place], [place] [address]Dr. Ivette Hernandez Potassium [Moles/Vol] 4.2 mmol/L Normal 3.5-5.1 [facility] Comment on above: Performed By: #### C MP, BNP ####[facility] Zxmcfdlcct[address] [place], [place] [address]Dr. Ivette Hernandez Protein [Mass/Vol] 6.7 g/dL Normal 6.4-8.2 [facility] Comment on above: Performed By: #### C MP, BNP ####[facility] Eqdhbsasdy[address] [place], [place] [address]Dr. Ivette Hernandez Sodium [Moles/Vol] 145 mmol/L Normal 136-145 [facility] Comment on above: Performed By: #### C MP, BNP ####[facility] Lwgzahpwlh[address] [place], [place] [address]Dr. Ivette Hernandez Urea nitrogen [Mass/Vol] 45.0 mg/dL Critically high 7.0-18.0 [facility] Comment on above: Performed By: #### C MP, BNP ####[facility] T[address]cawvqnz[address] [place], [place] [address]Dr. Ivette Hernandez Urea nitrogen/Creatinine [Mass ratio] 24.1 mg/mg Normal [facility] Comment on above: Performed By: #### C MP, BNP ####[facility] Qovkdxzhfq[address] [place], [place] [address]Dr. Ivette Hernandez BNPon 09-07-2022 Natriuretic peptide B (Bld) [Mass/Vol] 76938.0 pg/mL Critically high <=900.0 [facility] Comment on above: Performed By: #### C MP, BNP ####[facility] Wnqqjjphwe[address] [place], [place] [address]Dr. Ivette Hernandez CBC AUTO DIFFon 09-07-2022 BASO # 0.0 103/ul Normal 0.0-0.1 [facility] Comment on above: Performed By: #### C BC ####[facility] Asjmvfdort[address] [place], [place] [address]Dr. Ivette Hernandez BASO # 0.0 103/ul Normal 0.0-0.1 [facility] Comment on above: Performed By: #### C BC ####[facility] Wbzqrnhjaq[address] [place], [place] [address]Dr. Ivette Hernandez Basophils/100 WBC (Bld) 0.0 % Critically low 0.2-2.0 [facility] Comment on above: Performed By: #### C BC ####[facility] Ycrfejdjrr[address] [place], [place] [address]Dr. Ivette Hernandez Basophils/100 WBC (Bld) 0.1 % Critically low 0.2-2.0 [facility] Comment on above: Performed By: #### C BC ####[facility] Dfjgwioxwn[address] [place], [place] [address]Dr. Ivette Hernandez EO # 0.0 103/ul Normal 0.0-0.7 [facility] Comment on above: Performed By: #### C BC ####[facility] Sspdmqctty[address] [place], [place] [address]Dr. Ivette Hernandez EO # 0.0 103/ul Normal 0.0-0.7 [facility] Comment on above: Performed By: #### C BC ####[facility] Pvkswdmmfl[address] [place], [place] [address]Dr. Ivette Hernandez Eosinophils/100 WBC (Bld) 0.0 % Critically low 0.9-7.0 [facility] Comment on above: Performed By: #### C BC ####[facility] Gaditfevcg[address] [place], [place] [address]Dr. Ivette Hernandez Eosinophils/100 WBC (Bld) 0.0 % Critically low 0.9-7.0 [facility] Comment on above: Performed By: #### C BC ####[facility] C[address]hrpxyivf[address] [place], [place] [address]Dr. Ivette Hernandez Erythrocyte distribution width (RBC) [Ratio] 13.1 % Normal 11.0-15.0 [facility] Comment on above: Performed By: #### C BC ####[facility] [address]zwdar[address] [place], [place] [address]Dr. Ivette Hernandez Erythrocyte distribution width (RBC) [Ratio] 13.9 % Normal 11.0-15.0 [facility] Comment on above: Performed By: #### C BC ####[facility] Iyhqtnaktn[address] [place], [place] [address]Dr. Ivette Hernandez Hematocrit (Bld) [Volume fraction] 25.9 % Critically low 36.0-48.0 [facility] Comment on above: Performed By: #### C BC ####[facility] Seutokvnav[address] [place], [place] [address]Dr. Ivette Hernandez Hematocrit (Bld) [Volume fraction] 26.6 % Critically low 36.0-48.0 [facility] Comment on above: Performed By: #### C BC ####[facility] N[address]xq[address]dtc[address] [place], [place] [address]Dr. Ivette Hernandez Hemoglobin (Bld) [Mass/Vol] 8.0 g/dL Critically low 12.0-16.0 [facility] Comment on above: Performed By: #### C BC ####[facility] Sxbgxfjhma[address] [place], [place] [address]Dr. Ivette Hernandez Hemoglobin (Bld) [Mass/Vol] 8.3 g/dL Critically low 12.0-16.0 [facility] Comment on above: Performed By: #### C BC ####[facility] Dipwwoccnr[address] [place], [place] [address]Dr. Ivette Hernandez IG # 0.06 10e3/ul Critically high 0.00-0.[address] [facility] Comment on above: Performed By: #### C BC ####[facility] [address] [place], [place] [address]Hg. Ivette Hernandez IG # 0.07 10e3/ul Critically high 0.00-0.03 [facility] Comment on above: Performed By: #### C BC ####[facility] [address]cs[address]hom[address] [place] [id number]. Ivette Hernandez IG % 1.1 % Critically high 0.0-0.5 [facility] Comment on above: Performed By: #### C BC ####[facility] Rraklwqdsm14[address] [place], [place] [address]Tb. Ivette Hernandez IG % 0.8 % Critically high 0.0-0.5 [facility] Comment on above: Performed By: #### C BC ####[facility] Kjuwuqwgpb[address] [place] [id number]. Ivette Hernandez LYMPH # 0.8 103/ul Critically low 1.2-3.8 [facility] Comment on above: Performed By: #### C BC ####[facility] Elvvtclxvs38[address] [place] [id number]. Ivette Hernandez LYMPH # 0.6 103/ul Critically low 1.2-3.8 [facility] Comment on above: Performed By: #### C BC ####[facility] Nnxkefnclv5973 [place] [id number]. Ivette Hernandez Lymphocytes/100 WBC (Bld) 14.8 % Critically low 20.5-60.0 [facility] Comment on above: Performed By: #### C BC ####[facility] Ligiezvntq6[address] [place] [id number]. Ivette Hernandez Lymphocytes/100 WBC (Bld) 7.2 % Critically low 20.5-60.0 The [facility] Comment on above: Performed By: #### C BC ####[facility] Sgyhpllawu5166 [place] [id number]. Ivette Hernandez MANUAL DIFF REQ NO Normal [facility] Comment on above: Performed By: #### C BC ####[facility] Nolqaqkrxm6109 [place] [id number]. Ivette Hernandez MANUAL DIFF REQ NO Normal [facility] Comment on above: Performed By: #### C BC ####[facility] Vnjidseprv9477 [place] [id number]. Cherjun David MCH (RBC) [Entitic mass] 29.7 pg Normal 26.7-34.0 The [facility] Comment on above: Performed By: #### C BC ####[facility] Lqdpkutlnl044[address] [place] [address]Dr. Ivette Hernandez MCH (RBC) [Entitic mass] 29.5 pg Normal 26.7-34.0 The [facility] Comment on above: Performed By: #### C BC ####[facility] Rpajngsmdw[address] [place], [place] [address]Dr. Ivette Hernandez MCHC (RBC) [Mass/Vol] 30.9 g/dL Normal 29.9-35.2 The [facility] Comment on above: Performed By: #### C BC ####[facility] Xqwdexrxqa26[address] [place] [address]Dr. Cherjun Hernandez MCHC (RBC) [Mass/Vol] 31.2 g/dL Normal 29.9-35.2 The [facility] Comment on above: Performed By: #### C BC ####[facility] Lmzptdetmn9[address] [place] [address]Dr. Ivette Hernandez MCV (RBC) [Entitic vol] 96.3 fL Normal 81.0-99.0 The [facility] Comment on above: Performed By: #### C BC ####[facility] Dfcqtwysnp[address] [place], [place] [address]Dr. Ivette Hernandez MCV (RBC) [Entitic vol] 94.7 fL Normal 81.0-99.0 The [facility] Comment on above: Performed By: #### C BC ####[facility] Yyntsdtcyw94[address] [place], [place] [address]Dr. Ivette Hernandez MONO # 0.1 103/ul Critically low 0.3-0.8 [facility] Comment on above: Performed By: #### C BC ####[facility] Bvozodoozg9989 [place], [place] [address]Pq. Ivette Hernandez MONO # 0.6 103/ul Normal 0.3-0.8 The [facility] Comment on above: Performed By: #### C BC ####[facility] Cvnmgxqeeo1610 [place], [place] [address]Oi. Ivette Hernandez Monocytes/100 WBC (Bld) 2.0 % Normal 1.7-12.0 [facility] Comment on above: Performed By: #### C BC ####[facility] Hqbekkbihu5399 [place], [place] [address]Ic. Ivette Hernandez Monocytes/100 WBC (Bld) 6.8 % Normal 1.7-12.0 The [facility] Comment on above: Performed By: #### C BC ####[facility] Oltzoqvbmw[address] [place], [place] [address]Dr. Ivette Hernandez NEUT # 4.5 103/ul Normal 1.4-6.5 The [facility] Comment on above: Performed By: #### C BC ####[facility] Ucdhxqicaq6321 [place] [id number]. Ivette Hernandez NEUT # 7.4 103/ul Critically high 1.4-6.5 [facility] Comment on above: Performed By: #### C BC ####[facility] Oqnmytpkvw8279 [place] [id number]. Ivette Hernandez Neutrophils/100 WBC (Bld) 82.1 % Critically high 43.0-75.0 The [facility] Comment on above: Performed By: #### C BC ####[facility] Jzdwimavma9826 [place] [id number]. Ivette Hernandez Neutrophils/100 WBC (Bld) 85.1 % Critically high 43.0-75.0 The [facility] Comment on above: Performed By: #### C BC ####[facility] Ylbzmtcton0170 [place] [id number]. Ivette Hernandez Platelet mean volume (Bld) [Entitic vol] 9.4 fL Critically low 9.5-13.5 [facility] Comment on above: Performed By: #### C BC ####[facility] Jbqekxhcco5013 [place] [id number]. Ivette Hernandez Platelet mean volume (Bld) [Entitic vol] 9.5 fL Normal 9.5-13.5 [facility] Comment on above: Performed By: #### C BC ####[facility] Tmskvmdhca5260 [place] [id number]. Ivette Hernandez PLT 224 103/ul Normal 150-450 The [facility] Comment on above: Performed By: #### C BC ####[facility] Beppkjoeur4182 [place] [id number]. Ivette Hernandez PLT 227 103/ul Normal 150-450 The [facility] Comment on above: Performed By: #### C BC ####[facility] Hcarbonzjp[address] [place] [address]Dr. Ivette Hernandez RBC 2.69 106/ul Critically low 4.20-5.40 [facility] Comment on above: Performed By: #### C BC ####[facility] Zmydxibjvl1483 [place] [id number]. Ivette Hernandez RBC 2.81 106/ul Critically low 4.20-5.40 [facility] Comment on above: Performed By: #### C BC ####[facility] Xbsxmgsnpd3032 [place] [id number]. Ivette Hernandez WBC 5.5 103/ul Normal 4.0-11.0 The [facility] Comment on above: Performed By: #### C BC ####[facility] Biuqdekemx9833 [place] [id number]. Ivette Hernandez WBC 8.7 103/ul Normal 4.0-11.0 The [facility] Comment on above: Performed By: #### C BC ####[facility] Oqwpnekxnr0219 [place] [id number]. Ivette Hernadnez CULTURE SPUTUMon 09-07-2022 CULTURE SPUTUM Isolate 1 Carolee albicans Moderate growth of Normal The [facility] Comment on above: Performed By: #### S PUTCX ####[facility] Bzgeldgsra10[address] [place], [place] [address]Dr. Ivette Hernandez ECHOCARDIO M/2D COMPLETEon 0 09-07-2022 ECHOCARDIO M/2D COMPLETE Normal [facility] PRBC LEUKOREDUCEDon 09-08-19 PRBC LEUKOREDUCED Normal [facility] Comment on above: Performed By: #### P RBC ####[facility] Kponafancw67[address] [place], [place] [address]Dr. Ivette Hernandez PROF 14(COMP METB)on 023 Albumin [Mass/Vol] 2.4 g/dL Critically low 3.4-5.0 [facility] Comment on above: Performed By: #### C MP, BNP ####[facility] Seijgmgkis23[address] [place], [place] [address]Dr. Ivette Hernandez Albumin/Globulin [Mass ratio] 0.5 {ratio} Normal [facility] Comment on above: Performed By: #### C MP, BNP ####[facility] Lprqipglve5499[address] [place], [place] [address]Dr. Ivette Hernandez ALP [Catalytic activity/Vol] 75 U/L Normal 46-116 [facility] Comment on above: Performed By: #### C MP, BNP ####[facility] Vbiqoxmuvk8434[address] [place], [place] [address]Dr. Ivette Hernandez ALT [Catalytic activity/Vol] 17 U/L Normal 14-59 [facility] Comment on above: Performed By: #### C MP, BNP ####[facility] Avzuyucyvl3899[address] [place], [place] [address]Dr. Ivette Hernandez Anion gap [Moles/Vol] 11.3 mmol/L Normal [facility] Comment on above: Performed By: #### C MP, BNP ####[facility] Rwplynqtrz6157[address] [place], [place] [address]Dr. Ivette Hernandez AST [Catalytic activity/Vol] 15 U/L Normal 15-37 [facility] Comment on above: Performed By: #### C MP, BNP ####[facility] Uyomxjnryu6203[address] [place], [place] [address]Dr. Ivette Hernandez Bilirubin [Mass/Vol] 0.3 mg/dL Normal 0.2-1.0 [facility] Comment on above: Performed By: #### C MP, BNP ####[facility] Rkgfkttyze6[address] [place], [place] [address]Dr. Ivette Hernandez Calcium [Mass/Vol] 7.9 mg/dL Critically low 8.5-10.1 Th e [facility] Comment on above: Performed By: #### C MP, BNP ####[facility] Uynqtempqn5438[address] [place], [place] [address]Dr. Ivette Hernandez Chloride [Moles/Vol] 104 mmol/L Normal 98-107 [facility] Comment on above: Performed By: #### C MP, BNP ####[facility] Znfqebklxp4199[address] [place], [place] [address]Dr. Ivette Hernandez CO2 [Moles/Vol] 33.3 mmol/L Critically high 21.0-32.0 [facility] Comment on above: Performed By: #### C MP, BNP ####[facility] Azjlrdpeeu39[address] [place], [place] [address]Dr. Ivette Hernandez Creatinine [Mass/Vol] 1.68 mg/dL Critically high 0.55-1.02 [facility] Comment on above: Performed By: #### C MP, BNP ####[facility] Zpljcteeue[address] [place], [place] [address]Dr. Ivette Hernandez EGFR-AF MALAWIAN 36 mL/min/1.73m2 Critically low >=60 The [facility] Comment on above: Performed By: #### C MP, BNP ####[facility] Pzcoiwhetd00[address] [place], [place] [address]Dr. Ivette Hernandez EGFR-NON AF MALAWIAN 30 mL/min/1.73m2 Critically low >=60 The [facility] Comment on above: Performed By: #### C MP, BNP ####[facility] Esnvoujzgk4378[address] [place], [place] [address]Dr. Ivette Hernandez Globulin (S) [Mass/Vol] 4.5 g/dL Normal The [facility] Comment on above: Performed By: #### C MP, BNP ####[facility] Vhqeorkwju52[address] [place] [address]Dr. Ivette Hernandez Glucose [Mass/Vol] 203 mg/dL Critically high 74-106 [facility] Comment on above: Performed By: #### C MP, BNP ####[facility] Qeewfiixyv1909 [place] [address]Dr. Ivette Hernandez Potassium [Moles/Vol] 4.6 mmol/L Normal 3.5-5.1 [facility] Comment on above: Performed By: #### C MP, BNP ####[facility] Wwszspwmss4680 [place] [address]Dr. Ivette Hernandez Protein [Mass/Vol] 6.9 g/dL Normal 6.4-8.2 [facility] Comment on above: Performed By: #### C MP, BNP ####[facility] Excjyibwne[address] [place], [place] [address]Dr. Ivette Hernandez Sodium [Moles/Vol] 144 mmol/L Normal 136-145 [facility] Comment on above: Performed By: #### C MP, BNP ####[facility] Uhmogcqyhc[address] [place], [place] [address]Dr. Ivette Hernandez Urea nitrogen [Mass/Vol] 33.0 mg/dL Critically high 7.0-18.0 [facility] Comment on above: Performed By: #### C MP, BNP ####[facility] Stghoswujd[address] [place], [place] [address]Dr. Ivette Hernandez Urea nitrogen/Creatinine [Mass ratio] 19.6 mg/mg Normal [facility] Comment on above: Performed By: #### C MP, BNP ####[facility] Bnvmmxuxmc3[address] [place] [address]Dr. Ivette David SPUTUM GRAM STAINon 09-08-19 COMMENTS Normal [facility] Comment on above: Performed By: #### S PUTGS ####[facility] Qxpkiyqgqy[address] [place], [place] [address]Dr. Ivette David DIPHTHEROIDS Normal [facility] Comment on above: Performed By: #### S PUTGS ####[facility] Dhicgmkozd9893 [place] [address]Dr. Ivette Hernandez EPITHELIALS <25 Normal The [facility] Comment on above: Performed By: #### S PUTGS ####[facility] Dwzdhophhm45[address] [place], [place] [address]Dr. Ivette Hernandez FUNGAL ELEMENTS FEW Normal [facility] Comment on above: Performed By: #### S PUTGS ####[facility] Rmmchlphqy27[address] [place], [place] [address]Dr. Cherjun Hernandez GRAM NEG BACILLI Normal The [facility] Comment on above: Performed By: #### S PUTGS ####[facility] Dbswgjewew7165[address] [place], [place] [address]Dr. Cherjun Hernandez GRAM NEG DIPPLOCOCCI Normal The [facility] Comment on above: Performed By: #### S PUTGS ####[facility] Mqjeuyqkic39[address] [place], [place] [address]Dr. Cherjun Hernandez GRAM POS BACILLI Normal The [facility] Comment on above: Performed By: #### S PUTGS ####[facility] Lyouibxbaq6[address] [place], [place] [address]Dr. Ivette Hernandez GRAM POSITIVE COCCI Normal [facility] Comment on above: Performed By: #### S PUTGS ####[facility] Fwcwwfmcok4[address] [place], [place] [address]Dr. Ivette Hernandez WBC (Bld) [#/Vol] 10*3/uL Normal [facility] Comment on above: Performed By: #### S PUTGS ####[facility] Zjuoppcnqg58[address] [place], [place] [address]Dr. Ivette Hernandez TYPE AND SCREENon 09-07-2022 TYPE AND SCREEN Negative Normal [facility] Comment on above: Performed By: #### T NS ####[facility] Yyelwtlyxo50[address] [place], [place] [address]Dr. Ivette Hernandez BNPon 09-06-2022 Natriuretic peptide B (Bld) [Mass/Vol] 30874.0 pg/mL Critically high <=900.0 The [facility] Comment on above: Performed By: #### B BALE STACKER, HSTROPN, LIPA, CMP ####[facility] Wlkubxxdmf0416 [place], [place] [address]Pm. Ivette Hernandez CARDIAC CANDACE ADMITon 023 CK [Catalytic activity/Vol] 73 U/L Normal 26-192 The [facility] Comment on above: Performed By: #### C MADM, MG ####[facility] Sshdninqik5109 [place] [id number]. Ivette Hernandez CK.MB [Mass/Vol] 1.68 ng/mL Normal <=3.60 The [facility] Comment on above: Performed By: #### C MADM, MG ####[facility] Bkxxqnmjfi1951 [place] [id number]. Cherjun Hernandez HSTROP 14.7 pg/mL Normal 4.0-51.3 The [facility] Comment on above: Result Comment: CUT- OFF POINTS HAVE BEEN ESTABLISHED BASED ON THE FOURTH UNIVERSAL DEFINITIONS OF MYOCARDIALINFARCTION. THE UPPER REFERENCE LIMIT (URL) OF TROPONIN, DEFINED THE 99TH PERCENTILE OFcTnI DISTRIBUTION IN A REFERENCE POPULATION, HAS BEEN CONFIRMED THE DECISION THRESHOLDFOR IA DIAGNOSIS. Performed By: #### C MADM, MG ####[facility] Epxwmojxlb8530 [place] [id number]. Ivette Hernandez CARMITA 151 ng/mL Critically high 9-82 [facility] Comment on above: Performed By: #### C MADM, MG ####[facility] Bjuxamajsn3357 [place] [id number]. Ivette Hernandez CBC AUTO DIFFon 09-06-2022 BASO # 0.0 103/ul Normal 0.0-0.1 The [facility] Comment on above: Performed By: #### C BC ####[facility] Vivswugsay9756 [place] [address]Dr. Ivette Hernandez Basophils/100 WBC (Bld) 0.4 % Normal 0.2-2.0 The [facility] Comment on above: Performed By: #### C BC ####[facility] Acetezbtkm5323 [place] [address]Dr. Ivette Hernandez EO # 0.1 103/ul Normal 0.0-0.7 The [facility] Comment on above: Performed By: #### C BC ####[facility] Aionfjraii1361 [place] [address]Dr. Ivette Hernandez Eosinophils/100 WBC (Bld) 1.5 % Normal 0.9-7.0 The [facility] Comment on above: Performed By: #### C BC ####[facility] Gtmkssyxwd4474 [place] [address]Dr. Ivette Hernandez Erythrocyte distribution width (RBC) [Ratio] 13.1 % Normal 11.0-15.0 [facility] Comment on above: Performed By: #### C BC ####[facility] Urfnapywvf8713 [place] [address]Dr. Ivette Hernandez Hematocrit (Bld) [Volume fraction] 26.8 % Critically low 36.0-48.0 The [facility] Comment on above: Performed By: #### C BC ####[facility] Bsyanenmdl[address] [place], [place] [address]Dr. Ivette Hernandez Hemoglobin (Bld) [Mass/Vol] 8.4 g/dL Critically low 12.0-16.0 The [facility] Comment on above: Performed By: #### C BC ####[facility] Yqtgcghmnd60[address] [place], [place] [address]Dr. Ivette Hernandez IG # 0.05 10e3/ul Critically high 0.00-0.03 [facility] Comment on above: Performed By: #### C BC ####[facility] Zoeiqscthh3924 [place] [address]Dr. Ivette Hernandez IG % 0.5 % Normal 0.0-0.5 The [facility] Comment on above: Performed By: #### C BC ####[facility] Qrcuqjzxtj04[address] [place], [place] [address]Dr. Ivette Hernandez LYMPH # 1.6 103/ul Normal 1.2-3.8 The [facility] Comment on above: Performed By: #### C BC ####[facility] Npzxenrelp9[address] [place], [place] [address]Dr. Ivette Hernandez Lymphocytes/100 WBC (Bld) 17.1 % Critically low 20.5-60.0 [facility] Comment on above: Performed By: #### C BC ####[facility] Metnemqylb53[address] [place] [address]Dr. Ivette Hernandez MANUAL DIFF REQ NO Normal [facility] Comment on above: Performed By: #### C BC ####[facility] Pjxteynzss9016 [place] [id number]. Ivette Hernandez MCH (RBC) [Entitic mass] 30.1 pg Normal 26.7-34.0 [facility] Comment on above: Performed By: #### C BC ####[facility] Xivijkrzlo5799 [place] [address]Dr. Ivette Hernandez MCHC (RBC) [Mass/Vol] 31.3 g/dL Normal 29.9-35.2 The [facility] Comment on above: Performed By: #### C BC ####[facility] Kqjwgthpux2[address] [place], [place] [address]Dr. Ivette Hernandez MCV (RBC) [Entitic vol] 96.1 fL Normal 81.0-99.0 [facility] Comment on above: Performed By: #### C BC ####[facility] Kpkhtjzsfm[address] [place], [place] [address]DrJesse Hernandez MONO # 0.5 103/ul Normal 0.3-0.8 The [facility] Comment on above: Performed By: #### C BC ####[facility] Zrjdufwjcv1195 [place] [address]Dr. Ivette Hernandez Monocytes/100 WBC (Bld) 5.3 % Normal 1.7-12.0 The [facility] Comment on above: Performed By: #### C BC ####[facility] Wkvybylxmk74[address] [place], [place] [address]DrJesse Hernandez NEUT # 7.0 103/ul Critically high 1.4-6.5 [facility] Comment on above: Performed By: #### C BC ####[facility] Esrtoqvquf1187 [place] [address]DrJesse Hernandez Neutrophils/100 WBC (Bld) 75.2 % Critically high 43.0-75.0 [facility] Comment on above: Performed By: #### C BC ####[facility] Xvihxvjqvk8244 [place] [id number]. Ivette Hernandez Platelet mean volume (Bld) [Entitic vol] 9.5 fL Normal 9.5-13.5 [facility] Comment on above: Performed By: #### C BC ####[facility] Vbixozcuyi9324 [place] [id number]. Ivette Hernandez PLT 257 103/ul Normal 150-450 [facility] Comment on above: Performed By: #### C BC ####[facility] Hqfslimbgz6586 [place] [id number]. Ivette Hernandez RBC 2.79 106/ul Critically low 4.20-5.40 [facility] Comment on above: Performed By: #### C BC ####[facility] Flsudbwbic7[address] [place] [address]Dr. Ivette Hernandez WBC 9.3 103/ul Normal 4.0-11.0 [facility] Comment on above: Performed By: #### C BC ####[facility] H[address]iofjue[address] [place], [place] [address]Dr. Ivette Hernandez CULTURE BLOODon 09-06-2022 Microscopic examination of blood, culture Culture Observations: NO GROWTH AT 5 DAYS. Normal [facility] Comment on above: Performed By: #### B LDCX2 ####[facility] Hfjwrolsvr7[address] [place], [place] [address]Dr. Ivette Hernandez Performed By: #### B LDCX1 ####[facility] Nnsffcsxdp[address] [place], [place] [address]Dr. Ivette Hernandez CULTURE URINEon 09-06-2022 CULTURE URINE Culture Observations : LIGHT GROWTH OF MIXED GENITAL BOB. NO POTENTIAL PATHOGENS SEEN. Normal The [facility] Comment on above: Performed By: #### U RCX ####[facility] Gqkzuukkmz[address] [place], [place] [address]Dr. Ivette Hernandez Covid-19 PCR (CVDTB)on SARS-CoV-2 (COVID-19) RNA MARRY+probe Ql (Unsp spec) Not detected Normal NOT DETECTED The [facility] Comment on above: Result Comment: This test is not yet approved or cleared by the [place] FDA. When there are no FDA-approved or cleared tests available, and other criteria are met, FDA can make tests available under an emergency access mechanism called an Emergency Use Authorization (EUA). The EUA for this test is supported by the [employer] of Health and Human Service's (HHS's) declaration [...] with SARS-CoV-2. Performed By: #### C VDTBH ####[facility] [address]atqgfebx[address] [place], [place] [address]Dr. Cherjun Hernandez LACTATE/LACTIC ACIDon 2022 Lactate [Moles/Vol] 0.8 mmol/L Normal 0.4-2.0 [facility] Comment on above: Performed By: #### L ACT ####[facility] Yoptskwwss30[address] [address] [place], [place] [address]Dr. Ivette Hernandez Lactate [Moles/Vol] 0.6 mmol/L Normal 0.4-2.0 [facility] Comment on above: Performed By: #### L ACT ####[facility] O[address] [place], [place] [address]Dr. Ivette Hernandez LIPASEon 09-06-2022 Lipase [Catalytic activity/Vol] 157.0 U/L Normal 73.0-393.0 The [facility] Comment on above: Performed By: #### B BALE STACKER, HSTROPN, LIPA, CMP ####[facility] Wrtgzilx[address] [place], [place] [address]Dr. Ivette Hernandez MAGNESIUMon 09-06-2022 Magnesium [Mass/Vol] 1.6 mg/dL Critically low 1.8-2.4 [facility] Comment on above: Performed By: #### C MADM, MG ####[facility] Y[address] [place] [address]Dr. Ivette Hernandez PROF 14(COMP METB)on 023 Albumin [Mass/Vol] 2.5 g/dL Critically low 3.4-5.0 Th [facility] Comment on above: Performed By: #### B BALE STACKER, HSTROPN, LIPA, CMP ####[facility] Vymfrifkws[address] [place] [address]Dr. Ivette Hernandez Albumin/Globulin [Mass ratio] 0.5 {ratio} Normal [facility] Comment on above: Performed By: #### B BALE STACKER, HSTROPN, LIPA, CMP ####[facility] Elebtzsakd[address] [place] [address]Dr. Ivette Hernandez ALP [Catalytic activity/Vol] 85 U/L Normal 46-116 [facility] Comment on above: Performed By: #### B BALE STACKER, HSTROPN, LIPA, CMP ####[facility] Cerjnbsmfi[address] [place], [place] [address]Dr. Ivette Hernandez ALT [Catalytic activity/Vol] 18 U/L Normal 14-59 [facility] Comment on above: Performed By: #### B BALE STACKER, HSTROPN, LIPA, CMP ####[facility] Nklkcuzrur[address] [place] [address]Dr. Ivette Hernandez Anion gap [Moles/Vol] 9.1 mmol/L Normal [facility] Comment on above: Performed By: #### B BALE STACKER, HSTROPN, LIPA, CMP ####[facility] Osc[address]kjzzz[address] [place] [address]Dr. Ivette Hernandez AST [Catalytic activity/Vol] 18 U/L Normal 15-37 [facility] Comment on above: Performed By: #### B BALE STACKER, HSTROPN, LIPA, CMP ####[facility] Eseguefurg[address] [place], [place] [address]Dr. Ivette Hernandez Bilirubin [Mass/Vol] 0.5 mg/dL Normal 0.2-1.0 [facility] Comment on above: Performed By: #### B BALE STACKER, HSTROPN, LIPA, CMP ####[facility] Usdchnsyqs[address] [place] [address]Dr. Ivette Hernandez Calcium [Mass/Vol] 7.8 mg/dL Critically low 8.5-10.1 Th [facility] Comment on above: Performed By: #### B BALE STACKER, HSTROPN, LIPA, CMP ####[facility] Ebulzrvhcn[address] [place], [place] [address]Dr. Ivette Hernandez Chloride [Moles/Vol] 103 mmol/L Normal 98-107 The [facility] Comment on above: Performed By: #### B BALE STACKER, HSTROPN, LIPA, CMP ####[facility] Hbcolvjjjc8599[address] [place], [place] [address]Dr. Ivette Hernandez CO2 [Moles/Vol] 32.8 mmol/L Critically high 21.0-32.0 [facility] Comment on above: Performed By: #### B BALE STACKER, HSTROPN, LIPA, CMP ####[facility] Icgvuctubu[address] [place], [place] [address]Dr. Ivette Hernandez Creatinine [Mass/Vol] 1.79 mg/dL Critically high 0.55-1.02 [facility] Comment on above: Performed By: #### B BALE STACKER, HSTROPN, LIPA, CMP ####[facility] Fctcadmasc[address] [place], [place] [address]Dr. Ivette Hernandez EGFR-AF MALAWIAN 34 mL/min/1.73m2 Critically low >=60 The [facility] Comment on above: Performed By: #### B BALE STACKER, HSTROPN, LIPA, CMP ####[facility] Radamtkppr[address] [place], [place] [address]Dr. Ivette Hernandez EGFR-NON AF MALAWIAN 28 mL/min/1.73m2 Critically low >=60 The [facility] Comment on above: Performed By: #### B BALE STACKER, HSTROPN, LIPA, CMP ####[facility] Thtazxyhbr[address] [place] [address]Dr. Ivette Hernandez Globulin (S) [Mass/Vol] 4.6 g/dL Normal [facility] Comment on above: Performed By: #### B BALE STACKER, HSTROPN, LIPA, CMP ####[facility] Odbnmebues[address] [place] [address]Dr. Ivette Hernandez Glucose [Mass/Vol] 170 mg/dL Critically high 74-106 T [facility] Comment on above: Performed By: #### B BALE STACKER, HSTROPN, LIPA, CMP ####[facility] Azkhenewyp6[address] [place] [address]Dr. Ivette Hernandez Potassium [Moles/Vol] 3.9 mmol/L Normal 3.5-5.1 [facility] Comment on above: Performed By: #### B BALE STACKER, HSTROPN, LIPA, CMP ####[facility] Vapxzxfs[address] [place], [place] [address]Dr. Ivette Hernandez Protein [Mass/Vol] 7.1 g/dL Normal 6.4-8.2 The [facility] Comment on above: Performed By: #### B BALE STACKER, HSTROPN, LIPA, CMP ####[facility] Wkbuaykckb[address] [place], [place] [address]Dr. Ivette Hernandez Sodium [Moles/Vol] 141 mmol/L Normal 136-145 [facility] Comment on above: Performed By: #### B BALE STACKER, HSTROPN, LIPA, CMP ####[facility] Ipakiobfuq[address] [place], [place] [address]Dr. Ivette Hernandez Urea nitrogen [Mass/Vol] 31.0 mg/dL Critically high 7.0-18.0 The [facility] Comment on above: Performed By: #### B BALE STACKER, HSTROPN, LIPA, CMP ####[facility] Rsdtolqwhf[address] [place], [place] [address]Dr. Ivette Hernandez Urea nitrogen/Creatinine [Mass ratio] 17.3 mg/mg Normal [facility] Comment on above: Performed By: #### B BALE STACKER, HSTROPN, LIPA, CMP ####[facility] Lqnzuczxwp[address] [place] [id number]. Ivette Hernandez PROTIMEon 09-06-2022 INR Coag (PPP) [Relative time] 1.13 {INR} Normal [facility] Comment on above: Performed By: #### P TT, PT ####[facility] [address]lpwl64[address] [place] [id number]. Ivette Hernandez INR GUIDELINES SEE BELOW Normal [facility] Comment on above: Result Comment: MELANIE RED INR: 2.0 - 3.0 CONDITIONS NOT LISTED BELOW 2.5 - 3.5 FOR PROSTHETIC HEART VALVE REPLACEMENT 2.5 - 3.5 RECURRENT THROMBOSIS Performed By: #### P TT, PT ####[facility] Rqgafgclwj[address] [place] [address]Dr. Ivette Hernandez PT Coag (PPP) [Time] 11.9 s Critically high 9.0-11.6 [facility] Comment on above: Performed By: #### P TT, PT ####[facility] Udg[address]csrshq[address] [place] [address]Dr. Ivette Hernandez PTTon 09-06-2022 aPTT Coag (Bld) [Time] 29.6 s Normal 22.3-36.2 Th [facility] Comment on above: Performed By: #### P TT, PT ####[facility] Ewsontypup[address] [place] [address]Dr. Ivette Hernandez SYMPTOMATIC COVID-19 ANTIGEN on 09-06-2022 EUA Statement SEE BELOW Normal [facility] Comment on above: Result Comment: This [...] revoked sooner. Performed By: #### C VDAGS ####[facility] Atytbhauoi[address] [place] [address]Dr. Ivette Hernandez SARS-CoV-2 (COVID-19) RNA MARRY+probe Ql (Unsp spec) Negative Normal NEGATIVE The [facility] Comment on above: Performed By: #### C VDAGS ####[facility] Sreuocgtvk[address] [place], [place] [address]Dr. Ivette Hernandez TROPONIN, HIGH SENSITIVITYon 09-06-2022 HSTROP 13.1 pg/mL Normal 4.0-51.3 The [facility] Comment on above: Result Comment: CUT- OFF POINTS HAVE BEEN ESTABLISHED BASED ON THE FOURTH UNIVERSAL DEFINITIONS OF MYOCARDIALINFARCTION. THE UPPER REFERENCE LIMIT (URL) OF TROPONIN, DEFINED THE 99TH PERCENTILE OFcTnI DISTRIBUTION IN A REFERENCE POPULATION, HAS BEEN CONFIRMED THE DECISION THRESHOLDFOR IA DIAGNOSIS. Performed By: #### B BALE STACKER, HSTROPN, LIPA, CMP ####[facility] Kaijxcnlna[address] [place], [place] [address]Dr. Ivette Hernandez UA RANDOM W/MICROSCOPICon BACTERIA SMALL Abnormal NONE SEEN The [facility] Comment on above: Performed By: #### U AMIC ####[facility] Hgxgrkldfy[address] [place], [place] [address]Dr. Ivette Hernandez Bilirubin Ql (U) Negative Normal NEGATIVE The [facility] Comment on above: Performed By: #### U AMIC ####[facility] Gjkdavwrmd[address] [place], [place] [address]Dr. Ivette Hernandez CAST NONE SEEN Normal NONE SEEN The [facility] Comment on above: Performed By: #### U AMIC ####[facility] Gzgirqqdwz[address] [place], [place] [address]Dr. Ivette Hernandez Clarity (U) CLEAR Normal CLEAR The [facility] Comment on above: Performed By: #### U AMIC ####[facility] Mytxalairy[address] [place], [place] [address]Dr. Ivette Hernandez Color (U) LT. YELLOW Normal YELLOW The [facility] Comment on above: Performed By: #### U AMIC ####[facility] H[address]jmqempex[address] [place] [address]Dr. Ivette Hernandez Crystals LM Nom (Urine sed) NONE SEEN Normal NONE SEEN The [facility] Comment on above: Performed By: #### U AMIC ####[facility] Ipgatklomb[address] [place] [id number]. Ivette Hernandez Epithelial cells LM Ql (Urine sed) FEW Abnormal NONE SEEN /RARE The [facility] Comment on above: Performed By: #### U AMIC ####[facility] Jyhqgfppbm[address] [place] [address]Dr. Ivette Hernandez Glucose Ql (U) Negative Normal NEGATIVE The [facility] Comment on above: Performed By: #### U AMIC ####[facility] Cghlarduoz37[address] [place] [address]Dr. Ivette Hernandez Hemoglobin Ql (U) SMALL Abnormal NEGATIVE The [facility] Comment on above: Performed By: #### U AMIC ####[facility] Ngqroaaazr3134 [place] [address]Dr. Ivette Hernandez Ketones Ql (U) Negative Normal NEGATIVE [facility] Comment on above: Performed By: #### U AMIC ####[facility] Fzyyjjpiny60[address] [place] [address]Dr. Ivette Hernandez LEUKOCYTES TRACE Abnormal NEGATIVE The [facility] Comment on above: Performed By: #### U AMIC ####[facility] Vtzyhneotl[address] [place] [address]Dr. Ivette Hernandez MUCOUS NONE SEEN Normal NONE SEEN The [facility] Comment on above: Performed By: #### U AMIC ####[facility] Wyiozppxux3346 [place] [address]Dr. Ivette Hernandez Nitrite Ql (U) Negative Normal NEGATIVE [facility] Comment on above: Performed By: #### U AMIC ####[facility] Upbsclnesa5462 [place] [address]Dr. Ivette Hernandez pH (U) 7.5 [pH] Normal 5-9 [facility] Comment on above: Performed By: #### U AMIC ####[facility] Ijhadnsscl0472 [place] [address]Dr. Ivette Hernandez RBC 0-2 Normal 0-2 [facility] Comment on above: Performed By: #### U AMIC ####[facility] Mnzcrkbmxe[address] [place] [id number]. Ivette Hernandez SPEC GRAVITY 1.020 Normal 1.005-<=1.0 25 [facility] Comment on above: Performed By: #### U AMIC ####[facility] Jvikeeaslm6164 [place] [address]Dr. Ivette Hernandez UA PROTEIN 300 mg/dl Abnormal NEGATIVE/ TRACE The [facility] Comment on above: Performed By: #### U AMIC ####[facility] Ufalijxndz7199 [place] [address]Dr. Ivette Hernandez Urobilinogen Qn (U) 0.2 {Mack'U}/dL Normal 0.2 - 1. 0 [facility] Comment on above: Performed By: #### U AMIC ####[facility] Jxwnbvtzon[address] [place], [place] [address]Dr. Ivette Hernandez WBC 5-10 Abnormal NONE SEEN The [facility] Comment on above: Performed By: #### U AMIC ####[facility] Soocbaekok4[address] [place], [place] [address]Dr. Ivette Hernandez XR CHEST 1 Von 09-06-2022 XR CHEST 1 V Normal [facility] PROF CHEM 8 (BAS METB)on Anion gap [Moles/Vol] 12.3 mmol/L Normal [facility] Comment on above: Performed By: #### B MP ####[facility] Bvrstzajts[address] [place], [place] [address]Dr. Ivette Hernandez Calcium [Mass/Vol] 9.4 mg/dL Normal 8.5-10.1 [facility] Comment on above: Performed By: #### B MP ####[facility] Ebxwcwtrze[address] [place], [place] [address]Dr. Ivette Hernandez Chloride [Moles/Vol] 105 mmol/L Normal 98-107 [facility] Comment on above: Performed By: #### B MP ####[facility] Pganqayiwk39[address] [place] [address]Dr. Cherjun David CO2 [Moles/Vol] 30.2 mmol/L Normal 21.0-32.0 [facility] Comment on above: Performed By: #### B MP ####[facility] Dddukzeipf6494 [place] [address]Dr. Ivette Hernandez Creatinine [Mass/Vol] 2.66 mg/dL Critically high 0.55-1.02 [facility] Comment on above: Performed By: #### B MP ####[facility] Ozsjlzlgkl22[address] [place], [place] [address]Dr. Ivette Hernandez EGFR-AF MALAWIAN 21 mL/min/1.73m2 Critically low >=60 [facility] Comment on above: Performed By: #### B MP ####[facility] Jgfbxxvzsp[address] [place], [place] [address]Dr. Ivette Hernandez EGFR-NON AF MALAWIAN 18 mL/min/1.73m2 Critically low >=60 [facility] Comment on above: Performed By: #### B MP ####[facility] Dwdfyttqpo18[address] [place], [place] [address]Dr. Ivette Hernandez Glucose [Mass/Vol] 126 mg/dL Critically high 74-106 [facility] Comment on above: Performed By: #### B MP ####[facility] Loezmlzexw[address] [place], [place] [address]Dr. Ivette Hernandez Potassium [Moles/Vol] 4.5 mmol/L Normal 3.5-5.1 [facility] Comment on above: Performed By: #### B MP ####[facility] Mfdffbyxmn[address] [place], [place] [address]Dr. Ivette Hernandez Sodium [Moles/Vol] 143 mmol/L Normal 136-145 [facility] Comment on above: Performed By: #### B MP ####[facility] Eedasxchxm[address] [place], [place] [address]Dr. Ivette Hernandez Urea nitrogen [Mass/Vol] 55.0 mg/dL Critically high 7.0-18.0 [facility] Comment on above: Performed By: #### B MP ####[facility] Camcuzcxqb8780 [place] [id number] Ivette Hernandez Urea nitrogen/Creatinine [Mass ratio] 20.7 mg/mg Normal [facility] Comment on above: Performed By: #### B MP ####[facility] Jxvbzsfnnq1828 [place] [id number] Ivette Hernandez Office Visiton 07-06-2022 Follow-up visit [id number] Maria G Hagen 1950 F Date Provider Department Center 07/06/2022 Wilmer-SILVA MAXWELL [facility] Family History Problem Relation Age of Onset Stroke Mother Hypertension Mother Heart attack Father Hypertension Sister Heart attack Sister Heart attack Brother Family Status - Relation Status Age at Mother Father Sister Brother Level of Service:77346 AL OFFICE/OUTPATIENT ESTABLISHED MOD MDM 30-39 MIN Reason for Visit and Comments: Congestive Heart Failure [127] Atrial Fibrillation [80] Normal [facility] METANEPHRINES PLASMA FREEon 06-24-2022 Metanephrine, Pl 16.5 pg/mL Normal 0.0-88.0 [facility] Comment on above: Performed By: #### M ETANPF ####[facility] Mvrbwkzgft15[address] [place] [address]Dr. Ivette David Normetanephrine, Pl 67.2 pg/mL Normal 0.0-285.2 [facility] Comment on above: Performed By: #### M ETANPF ####[facility] Niruniwrtv[address] [place] [id number] Ivette Hernandez ALDOSTERONE: RENIN RATIOon 0 06-20-2022 Aldos/Renin Ratio 12.0 Normal 0.0-30.0 [facility] Comment on above: Result Comment: Unit s: ng/dL per ng/mL/hr Performed By: #### A LDOREN ####[facility] Sxahhlemqp18[address] [place] [id number] Kwonjun David Aldosterone 3.8 ng/dL Normal 0.0-30.0 [facility] Comment on above: Performed By: #### A LDOREN ####[facility] Jnxzwrsdfw6125 [place] [id number]. Ivette Hernandez Renin Activity, Plasma 0.316 ng/mL/hr Normal 0.167-5.3 80 [facility] Comment on above: Performed By: #### A LDOREN ####[facility] Fkrdbwlpfg037[address] [place] [id number]. Ivette Hernandez CORTISOLon 06-16-2022 Cortisol 2.7 ug/dL Normal [facility] Comment on above: Result Comment: Too isol AM 6.2 - 19.4 Cortisol PM 2.3 - 11.9 Performed By: #### C ORTISO ####[facility] Fzeqbxalhe[address] [place] [address]Dr. Ivette Hernandez URINALYSISOrdered By: Iwona suárez on 06-10-2022 Bacteria [...] [#/Area] 3-4 /HPF Normal 0-2/HPF [facility] UA Aut o SS Glucose Test strip (U) [Mass/Vol] Negative (06/10/22 12:20 PM) Normal Negative [facility] UA Auto SS Hemoglobin Ql (U) 3+ *ABN* (06/10/22 12:20 PM) Invalid Interpretation Code Negative [facility] UA Auto SS Ketones (U) [Mass/Vol] Negative (06/10/22 12:20 PM) Normal Negative [facility] UA Auto SS [place].plasma/[place] .RBC (Bld) [Mass ratio] 4-20 /HPF Normal 0-3/HPF [...] Desc Random Urine (06/10/22 12:20 PM) Normal [facility] UA Auto SS Urobilinogen Qn (U) 0.5024081 {Mack'U}/dL Normal 0.0 - 1.0 EU/dL FT UA Auto SS WBC Auto Ql (U) 2+ *ABN* (06/10/22 12:20 PM) Invalid Interpretation Code Negative [facility] UA Auto SS WBC LM.HPF (Urine sed) [#/Area] /[HPF] Invalid Interpretation Code 0-5/HPF [facility] UA Auto SS CT ABD/PELV W CONon 05-06-19 CT ABD/PELV W CON Normal [facility] CREATININEon 05-05-2022 Creatinine [Mass/Vol] 1.49 mg/dL Critically high 0.55-1.02 [facility] Comment on above: Performed By: #### C BENITA ####[facility] Cemotcaicx[address] [place], [place] [address]Dr. Ivette Hernandez EGFR-AF MALAWIAN 42 mL/min/1.73m2 Critically low >=60 [facility] Comment on above: Performed By: #### C BENITA ####[facility] Imbkootpwt3459 [place] [address]DrJesse Hernandez EGFR-NON AF MALAWIAN 34 mL/min/1.73m2 Critically low >=60 [facility] Comment on above: Performed By: #### C BENITA ####[facility] Dnbyianxhz3088 [place] [address]DrJesse Hernandez PROF CHEM 8 (BAS METB)on Anion gap [Moles/Vol] 12.6 mmol/L Normal [facility] Comment on above: Performed By: #### B MP ####[facility] Ikcsvywtym650[address] [place], [place] [address]Dr. Cherjun Hernandez Calcium [Mass/Vol] 8.0 mg/dL Critically low 8.5-10.1 [facility] Comment on above: Performed By: #### B MP ####[facility] Qcjuucaors[address] [place], [place] [address]Dr. Ivette Hernandez Chloride [Moles/Vol] 103 mmol/L Normal 98-107 [facility] Comment on above: Performed By: #### B MP ####[facility] Elsmdqyoxf01[address] [place], [place] [address]Dr. Ivette Hernandez CO2 [Moles/Vol] 28.7 mmol/L Normal 21.0-32.0 [facility] Comment on above: Performed By: #### B MP ####[facility] Hxsderfrst1922[address] [place], [place] [address]Dr. Ivette Hernandez Creatinine [Mass/Vol] 1.54 mg/dL Critically high 0.55-1.02 [facility] Comment on above: Performed By: #### B MP ####[facility] Zacwaacmxx[address] [place], [place] [address]Dr. Ivette Hernandez EGFR-AF MALAWIAN 40 mL/min/1.73m2 Critically low >=60 [facility] Comment on above: Performed By: #### B MP ####[facility] Oskeoqwjnr[address] [place], [place] [address]Dr. Ivette Hernandez EGFR-NON AF MALAWIAN 33 mL/min/1.73m2 Critically low >=60 [facility] Comment on above: Performed By: #### B MP ####[facility] Jhwooaznyc7[address] [place], [place] [address]Dr. Ivette Hernandez Glucose [Mass/Vol] 126 mg/dL Critically high 74-106 [facility] Comment on above: Performed By: #### B MP ####[facility] Jywbdwedyz39[address] [place] [address]Dr. Ivette Hernandez Potassium [Moles/Vol] 3.3 mmol/L Critically low 3.5-5.1 [facility] Comment on above: Performed By: #### B MP ####[facility] Qktqjjsfhm[address] [place], [place] [address]Dr. Ivette Hernandez Sodium [Moles/Vol] 141 mmol/L Normal 136-145 [facility] Comment on above: Performed By: #### B MP ####[facility] Ezbeobarpo35[address] [place], [place] [address]Dr. Ivette Hernandez Urea nitrogen [Mass/Vol] 21.0 mg/dL Critically high 7.0-18.0 [facility] Comment on above: Performed By: #### B MP ####[facility] Ddskhtqnrf9[address] [place], [place] [address]Dr. Ivette David Urea nitrogen/Creatinine [Mass ratio] 13.6 mg/mg Normal [facility] Comment on above: Performed By: #### B MP ####[facility] Bzuyvxrmhy[address] [place], [place] [address]Dr. Ivette Hernandez CBC AUTO DIFFon 04-13-2022 BASO # 0.0 103/ul Normal 0.0-0.1 [facility] Comment on above: Performed By: #### C BC ####[facility] Center [address]jnexvgqee[address] [place], [place] [address]Dr. Ivette David Basophils/100 WBC (Bld) 0.3 % Normal 0.2-2.0 [facility] Comment on above: Performed By: #### C BC ####[facility] Lvmivljzwk[address] [place], [place] [address]Dr. Ivette David EO # 0.3 103/ul Normal 0.0-0.7 [facility] Comment on above: Performed By: #### C BC ####[facility] Tdlqhmaplm90[address] [place], [place] [address]Dr. Ivette David Eosinophils/100 WBC (Bld) 4.3 % Normal 0.9-7.0 [facility] Comment on above: Performed By: #### C BC ####[facility] Ivireknizd[address] [place] [address]Dr. Ivette Hernandez Erythrocyte distribution width (RBC) [Ratio] 14.2 % Normal 11.0-15.0 [facility] Comment on above: Performed By: #### C BC ####[facility] Qvikkevvgq485[address] [place], [place] [address]Dr. Ivette Hernandez Hematocrit (Bld) [Volume fraction] 26.2 % Critically low 36.0-48.0 [facility] Comment on above: Performed By: #### C BC ####[facility] Txkhkpnqlx50[address] [place], [place] [address]Dr. Ivette Hernandez Hemoglobin (Bld) [Mass/Vol] 8.0 g/dL Critically low 12.0-16.0 [facility] Comment on above: Performed By: #### C BC ####[facility] Lrgztjabgd[address] [place], [place] [address]Dr. Ivette Hernandez IG # 0.03 10e3/ul Normal 0.00-0.03 [facility] Comment on above: Performed By: #### C BC ####[facility] Qaubviihqe4938[address] [place], [place] [address]Dr. Ivette Hernandez IG % 0.5 % Normal 0.0-0.5 [facility] Comment on above: Performed By: #### C BC ####[facility] Tglqqdzzgl2742[address] [place], [place] [address]Dr. Ivette Hernandez LYMPH # 2.2 103/ul Normal 1.2-3.8 [facility] Comment on above: Performed By: #### C BC ####[facility] Krbuailmnr1499[address] [place], [place] [address]Dr. Ivette Hernandez Lymphocytes/100 WBC (Bld) 35.5 % Normal 20.5-60.0 [facility] Comment on above: Performed By: #### C BC ####[facility] Bsgjraexww[address] [place], [place] [address]Dr. Ivette Hernandez MANUAL DIFF REQ NO Normal [facility] Comment on above: Performed By: #### C BC ####[facility] Su[address] [place] [id number]. Ivette Hernandez MCH (RBC) [Entitic mass] 28.0 pg Normal 26.7-34.0 [facility] Comment on above: Performed By: #### C BC ####[facility] Yknchkjkjd2962 [place] [id number]. Ivette Hernandez MCHC (RBC) [Mass/Vol] 30.5 g/dL Normal 29.9-35.2 [facility] Comment on above: Performed By: #### C BC ####[facility] Nggmbwlxuo[address] [place], [place] [id number]. Ivette Hernandez MCV (RBC) [Entitic vol] 91.6 fL Normal 81.0-99.0 [facility] Comment on above: Performed By: #### C BC ####[facility] Qtgcwfxyru280[address] [place], [place] [address]Dr. Ivette David MONO # 0.5 103/ul Normal 0.3-0.8 [facility] Comment on above: Performed By: #### C BC ####[facility] Fkycfkynww99[address] [place], [place] [address]Dr. Ivette David Monocytes/100 WBC (Bld) 8.2 % Normal 1.7-12.0 [facility] Comment on above: Performed By: #### C BC ####[facility] Tjsnubtcha10[address] [place], [place] [address]Dr. Ivette Hernandez NEUT # 3.2 103/ul Normal 1.4-6.5 [facility] Comment on above: Performed By: #### C BC ####[facility] M[address]crqbjpcs[address] [place], [place] [id number]. Ivette Hernandez Neutrophils/100 WBC (Bld) 51.2 % Normal 43.0-75.0 [facility] Comment on above: Performed By: #### C BC ####[facility] Migesfmsqn633[address] [place], [place] [address]Dr. Ivette Hernandez Platelet mean volume (Bld) [Entitic vol] 9.8 fL Normal 9.5-13.5 [facility] Comment on above: Performed By: #### C BC ####[facility] Whxyejyund3292 [place], [place] [address]Bc. Ivette Hernandez PLT 168 103/ul Normal 150-450 [facility] Comment on above: Performed By: #### C BC ####[facility] Wujtwepkzo5196 [place], [place] [address]Wj. Ivette Hernandez RBC 2.86 106/ul Critically low 4.20-5.40 [facility] Comment on above: Performed By: #### C BC ####[facility] Njabocwvrb7537 [place], [place] [address]Gm. Ivette Hernandez WBC 6.2 103/ul Normal 4.0-11.0 [facility] Comment on above: Performed By: #### C BC ####[facility] Rfnndxjtld7843 [place], [place] [address]Ne. Ivette Hernandez Office Visiton 04-13-2022 Follow-up visit [id number] Maria G Hagen 1950 F Date Provider Department Center 04/13/2022 MADI MITCHELL [facility] Family History Problem Relation Age of Onset Stroke Mother Hypertension Mother Heart attack Father Hypertension Sister Heart attack Sister Heart attack Brother Family Status - Relation Status Age at Mother Father Sister Brother Level of Service:82423 AL OFFICE/OUTPATIENT ESTABLISHED MOD MDM 30-39 MIN Reason for Visit and Comments: Congestive Heart Failure [127] Atrial Fibrillation [80] Normal [facility] POINT OF CARE GLUCOSEon 04-02 Glucose [Mass/Vol] 140 mg/dL Critically high 74-106 T [facility] Comment on above: Performed By: #### P OCGLUC ####[facility] Fessgvubnm7985 [place], [place] [address]BrJesse Hernandez PROF CHEM 8 (BAS METB)on Anion gap [Moles/Vol] 7.9 mmol/L Normal [facility] Comment on above: Performed By: #### B MP ####[facility] Yjryuatjth24[address] [place] [id number] Hernandez Calcium [Mass/Vol] 7.9 mg/dL Critically low 8.5-10.1 Th e [facility] Comment on above: Performed By: #### B MP ####[facility] Qeemiudynl57[address] [place] [address]Dr. Ivette David Chloride [Moles/Vol] 106 mmol/L Normal 98-107 [facility] Comment on above: Performed By: #### B MP ####[facility] Kexklhgtvf29[address] [place] [id number]. Ivette David CO2 [Moles/Vol] 32.0 mmol/L Normal 21.0-32.0 [facility] Comment on above: Performed By: #### B MP ####[facility] Wqnqzsdnpb5006 [place] [address]Dr. Ivette David Creatinine [Mass/Vol] 1.67 mg/dL Critically high 0.55-1.02 [facility] Comment on above: Performed By: #### B MP ####[facility] Swrfbjjyrn94[address] [place], [place] [address]Dr. Cherjun David EGFR-AF MALAWIAN 36 mL/min/1.73m2 Critically low >=60 [facility] Comment on above: Performed By: #### B MP ####[facility] Rlxcxiguan[address] [place], [place] [address]Dr. Ivette David EGFR-NON AF MALAWIAN 30 mL/min/1.73m2 Critically low >=60 [facility] Comment on above: Performed By: #### B MP ####[facility] Zjdjmmzxpm6439 [place] [address]Dr. Cherjun David Glucose [Mass/Vol] 91 mg/dL Normal 74-106 [facility] Comment on above: Performed By: #### B MP ####[facility] Ebaneekldb1635 [place] [id number]. Cherjun David Potassium [Moles/Vol] 3.9 mmol/L Normal 3.5-5.1 [facility] Comment on above: Performed By: #### B MP ####[facility] Kilerwjltd4466 [place] [id number]. Ivette Hernandez Sodium [Moles/Vol] 142 mmol/L Normal 136-145 [facility] Comment on above: Performed By: #### B MP ####[facility] Gzlpfahdgc[address] [place], [place] [address]Dr. Ivette Hernandez Urea nitrogen [Mass/Vol] 26.0 mg/dL Critically high 7.0-18.0 [facility] Comment on above: Performed By: #### B MP ####[facility] Xbmjpzkjbj[address] [place], [place] [address]Dr. Ivette Hernandez Urea nitrogen/Creatinine [Mass ratio] 15.6 mg/mg Normal [facility] Comment on above: Performed By: #### B MP ####[facility] Qgkagrecco7[address] [place], [place] [address]Dr. Ivette Hernandez CBC AUTO DIFFon 04-12-2022 BASO # 0.0 103/ul Normal 0.0-0.1 [facility] Comment on above: Performed By: #### C BC ####[facility] Oy[address]uwihik[address] [place], [place] [address]Dr. Ivette Hernandez Basophils/100 WBC (Bld) 0.5 % Normal 0.2-2.0 [facility] Comment on above: Performed By: #### C BC ####[facility] W[address]rqlavq8[address] [place], [place] [address]Dr. Ivette Hernandez EO # 0.3 103/ul Normal 0.0-0.7 [facility] Comment on above: Performed By: #### C BC ####[facility] Bwmsniblsj9[address] [place], [place] [address]Dr. Ivette Hernandez Eosinophils/100 WBC (Bld) 4.4 % Normal 0.9-7.0 [facility] Comment on above: Performed By: #### C BC ####[facility] Ewgzrktpjm5996[address] [place], [place] [address]Dr. Ivette Hernandez Erythrocyte distribution width (RBC) [Ratio] 14.2 % Normal 11.0-15.0 [facility] Comment on above: Performed By: #### C BC ####[facility] Dbxpwputmq6059[address] [place], [place] [address]Dr. Ivette Hernandez Hematocrit (Bld) [Volume fraction] 25.9 % Critically low 36.0-48.0 [facility] Comment on above: Performed By: #### C BC ####[facility] Hrmbcblndc5609 [place] [address]DrJesse Ivette Hernandez Hemoglobin (Bld) [Mass/Vol] 8.0 g/dL Critically low 12.0-16.0 [facility] Comment on above: Performed By: #### C BC ####[facility] Fkgbehbkyp2916[address] [place], [place] [address]DrJesse Ivette Hernandez IG # 0.03 10e3/ul Normal 0.00-0.03 [facility] Comment on above: Performed By: #### C BC ####[facility] Upzkktvdca[address] [place], [place] [address]DrJesse Ivette David IG % 0.5 % Normal 0.0-0.5 [facility] Comment on above: Performed By: #### C BC ####[facility] Yvoblifthg3924[address] [place], [place] [address]DrJesse Ivette David LYMPH # 2.1 103/ul Normal 1.2-3.8 [facility] Comment on above: Performed By: #### C BC ####[facility] Uhiqnsmuwt355[address] [place], [place] [address]DrJesse Ivette David Lymphocytes/100 WBC (Bld) 35.0 % Normal 20.5-60.0 [facility] Comment on above: Performed By: #### C BC ####[facility] Yhinqxpukl05[address] [place], [place] [address]DrJesse Ivette David MANUAL DIFF REQ NO Normal [facility] Comment on above: Performed By: #### C BC ####[facility] Oblmdefcak8734[address] [place], [place] [address]DrJesse Ivette David MCH (RBC) [Entitic mass] 28.3 pg Normal 26.7-34.0 [facility] Comment on above: Performed By: #### C BC ####[facility] Fzsuglmrki8232[address] [place], [place] [address]DrJesse Cherjun Hernandez MCHC (RBC) [Mass/Vol] 30.9 g/dL Normal 29.9-35.2 [facility] Comment on above: Performed By: #### C BC ####[facility] Huptwtytfb1038 [place] [address]DrJesse Hernandez MCV (RBC) [Entitic vol] 91.5 fL Normal 81.0-99.0 [facility] Comment on above: Performed By: #### C BC ####[facility] Cqrwfmqhct39[address] [place], [place] [address]DrJesse Hernandez MONO # 0.4 103/ul Normal 0.3-0.8 [facility] Comment on above: Performed By: #### C BC ####[facility] Rqnuhvhiqj4021[address] [place], [place] [address]DrJesse Hernandez Monocytes/100 WBC (Bld) 7.1 % Normal 1.7-12.0 [facility] Comment on above: Performed By: #### C BC ####[facility] Ixfykvmpnl0989[address] [place], [place] [address]DrJesse Hernandez NEUT # 3.1 103/ul Normal 1.4-6.5 [facility] Comment on above: Performed By: #### C BC ####[facility] Tnkaveofty6349[address] [place], [place] [address]DrJesse Hernandez Neutrophils/100 WBC (Bld) 52.5 % Normal 43.0-75.0 [facility] Comment on above: Performed By: #### C BC ####[facility] Vpanavnplj[address] [place], [place] [address]DrJesse Hernandez Platelet mean volume (Bld) [Entitic vol] 9.6 fL Normal 9.5-13.5 [facility] Comment on above: Performed By: #### C BC ####[facility] Ycdhqwllzp25[address] [place], [place] [address]DrJesse Hernandez PLT 163 103/ul Normal 150-450 [facility] Comment on above: Performed By: #### C BC ####[facility] Woxmivreqw1263[address] [place], [place] [address]DrJesse Hernandez RBC 2.83 106/ul Critically low 4.20-5.40 [facility] Comment on above: Performed By: #### C BC ####[facility] Qkpbgysvyv6754 [place] [address]Dr. Ivette Hernandez WBC 5.9 103/ul Normal 4.0-11.0 [facility] Comment on above: Performed By: #### C BC ####[facility] Qigdgomsop8516 [place] [address]Dr. Ivette Hernandez CULTURE URINEon 04-12-2022 CULTURE URINE Normal [facility] Comment on above: Performed By: #### U RCX ####[facility] Trlgoszjgn1737[address] [place], [place] [address]Dr. Ivette Hernandez POINT OF CARE GLUCOSEon 04-02 Glucose [Mass/Vol] 136 mg/dL Critically high 74-106 [facility] Comment on above: Performed By: #### P OCGLUC ####[facility] Zyimmpthww[address] [place], [place] [address]Dr. Ivette Hernandez Glucose [Mass/Vol] 212 mg/dL Critically high 74-106 [facility] Comment on above: Performed By: #### P OCGLUC ####[facility] Lbankakrur5922[address] [place], [place] [address]Dr. Ivette Hernandez Glucose [Mass/Vol] 106 mg/dL Normal 74-106 [facility] Comment on above: Performed By: #### P OCGLUC ####[facility] Fnuxoxgelr436[address] [place], [place] [address]Dr. Ivette Hernandez PROF CHEM 8 (BAS METB)on Anion gap [Moles/Vol] 9.6 mmol/L Normal [facility] Comment on above: Performed By: #### B MP ####[facility] Zwqxfciivc5437[address] [place], [place] [address]Dr. Ivette Hernandez Calcium [Mass/Vol] 7.5 mg/dL Critically low 8.5-10.1 [facility] Comment on above: Performed By: #### B MP ####[facility] Misaejjnua335[address] [place], [place] [address]Dr. Ivette Hernandez Chloride [Moles/Vol] 106 mmol/L Normal 98-107 [facility] Comment on above: Performed By: #### B MP ####[facility] Kysckfpslj2045 [place] [address]Dr. Ivette Hernandez CO2 [Moles/Vol] 29.3 mmol/L Normal 21.0-32.0 [facility] Comment on above: Performed By: #### B MP ####[facility] Rlmofnenwk6971[address] [place], [place] [address]Dr. Ivette Hernandez Creatinine [Mass/Vol] 1.48 mg/dL Critically high 0.55-1.02 [facility] Comment on above: Performed By: #### B MP ####[facility] Djhtuhbkvz67[address] [place], [place] [address]Dr. Ivette Hernandez EGFR-AF MALAWIAN 42 mL/min/1.73m2 Critically low >=60 [facility] Comment on above: Performed By: #### B MP ####[facility] Kijlrsypeq8274[address] [place], [place] [address]Dr. Ivette Hernandez EGFR-NON AF MALAWIAN 35 mL/min/1.73m2 Critically low >=60 [facility] Comment on above: Performed By: #### B MP ####[facility] Gxdpeyajtf24[address] [place], [place] [address]Dr. Ivette Hernandez Glucose [Mass/Vol] 87 mg/dL Normal 74-106 [facility] Comment on above: Performed By: #### B MP ####[facility] Eiqdesehiz[address] [place], [place] [address]Dr. Ivette Hernandez Potassium [Moles/Vol] 3.9 mmol/L Normal 3.5-5.1 [facility] Comment on above: Performed By: #### B MP ####[facility] Qlukfkvoyr3389[address] [place], [place] [address]Dr. Ivette Hernandez Sodium [Moles/Vol] 141 mmol/L Normal 136-145 [facility] Comment on above: Performed By: #### B MP ####[facility] Ykdtwcqrlv0701[address] [place], [place] [address]Dr. Ivette Hernandez Urea nitrogen [Mass/Vol] 24.0 mg/dL Critically high 7.0-18.0 [facility] Comment on above: Performed By: #### B MP ####[facility] Fwuoxfgsbq4266[address] [place], [place] [address]Dr. Ivette Hernandez Urea nitrogen/Creatinine [Mass ratio] 16.2 mg/mg Normal [facility] Comment on above: Performed By: #### B MP ####[facility] Aulffibvxy6[address] [place], [place] [address]Dr. Ivette Hernandez CBC AUTO DIFFon 04-11-2022 BASO # 0.0 103/ul Normal 0.0-0.1 [facility] Comment on above: Performed By: #### C BC ####[facility] Ayeodlhiiv7943[address] [place], [place] [address]Dr. Cherjun Hernandez Basophils/100 WBC (Bld) 0.3 % Normal 0.2-2.0 [facility] Comment on above: Performed By: #### C BC ####[facility] Tslnhmeoti4589[address] [place], [place] [address]Dr. Ivette Hernandez EO # 0.2 103/ul Normal 0.0-0.7 [facility] Comment on above: Performed By: #### C BC ####[facility] Qlcdsxxwbe8578[address] [place], [place] [address]Dr. Ivette David Eosinophils/100 WBC (Bld) 2.8 % Normal 0.9-7.0 [facility] Comment on above: Performed By: #### C BC ####[facility] Oombgqekvo1367[address] [place], [place] [address]Dr. Ivette Hernandez Erythrocyte distribution width (RBC) [Ratio] 14.4 % Normal 11.0-15.0 [facility] Comment on above: Performed By: #### C BC ####[facility] Iczvargxin9359[address] [place], [place] [address]Dr. Ivette Hernandez Hematocrit (Bld) [Volume fraction] 24.9 % Critically low 36.0-48.0 [facility] Comment on above: Performed By: #### C BC ####[facility] Ks[address]ryuqavi[address] [place] [id number]. Ivette Hernandez Hemoglobin (Bld) [Mass/Vol] 7.7 g/dL Critically low 12.0-16.0 [facility] Comment on above: Performed By: #### C BC ####[facility] Wdamvkqbyb2739 [place] [id number]. Ivette Hernandez IG # 0.02 10e3/ul Normal 0.00-0.03 [facility] Comment on above: Performed By: #### C BC ####[facility] Cunvszwoyd36[address] [place] [id number]. Ivette Hernandez IG % 0.3 % Normal 0.0-0.5 [facility] Comment on above: Performed By: #### C BC ####[facility] Fvnpzxmrpz29[address] [place] [address]Dr. Ivette Hernandez LYMPH # 1.9 103/ul Normal 1.2-3.8 [facility] Comment on above: Performed By: #### C BC ####[facility] Oictfudapc30[address] [place] [address]Dr. Ivette Hernandez Lymphocytes/100 WBC (Bld) 32.7 % Normal 20.5-60.0 [facility] Comment on above: Performed By: #### C BC ####[facility] Htmfguhtrs26[address] [place] [id number]. Ivette Hernandez MANUAL DIFF REQ NO Normal [facility] Comment on above: Performed By: #### C BC ####[facility] Atihddneiw2586 [place] [id number]. Ivette Hernandez MCH (RBC) [Entitic mass] 28.3 pg Normal 26.7-34.0 [facility] Comment on above: Performed By: #### C BC ####[facility] Bjpxhqnctk6867 [place] [id number]. Ivette Hernandez MCHC (RBC) [Mass/Vol] 30.9 g/dL Normal 29.9-35.2 [facility] Comment on above: Performed By: #### C BC ####[facility] Tppyjmmyds7637 [place] [address]Dr. Ivette Hernandez MCV (RBC) [Entitic vol] 91.5 fL Normal 81.0-99.0 [facility] Comment on above: Performed By: #### C BC ####[facility] Fzgflouzip6461 [place] [id number]. Ivette Hernandez MONO # 0.5 103/ul Normal 0.3-0.8 [facility] Comment on above: Performed By: #### C BC ####[facility] Rstwkgczuo8369 [place] [address]Dr. Ivette Hernandez Monocytes/100 WBC (Bld) 8.2 % Normal 1.7-12.0 [facility] Comment on above: Performed By: #### C BC ####[facility] Hncuerdkxe[address] [place], [place] [address]Dr. Ivette Hernandez NEUT # 3.2 103/ul Normal 1.4-6.5 [facility] Comment on above: Performed By: #### C BC ####[facility] Gsbmuwpqbx1934 [place] [address]Dr. Ivette Hernandez Neutrophils/100 WBC (Bld) 55.7 % Normal 43.0-75.0 [facility] [facility] Comment on above: Performed By: #### C BC ####[facility] Kdz[address] [place], [place] [address]Dr. Ivette Hernandez Platelet mean volume (Bld) [Entitic vol] 9.7 fL Normal 9.5-13.5 [facility] Comment on above: Performed By: #### C BC ####[facility] Vu[address]ef[address] [place] [id number]. Ivette Hernandez PLT 139 103/ul Critically low 150-450 [facility] Comment on above: Performed By: #### C BC ####[facility] Vrxrskwthq[address] [place] [address]Dr. Ivette Hernandez RBC 2.72 106/ul Critically low 4.20-5.40 [facility] Comment on above: Performed By: #### C BC ####[facility] Um[address] [place], [place] [address]Dr. Ivette Hernandez WBC 5.8 103/ul Normal 4.0-11.0 [facility] Comment on above: Performed By: #### C BC ####[facility] Nq[address] [place] [address]Dr. Ivette Hernandez IRON AND TIBCon 04-11-2022 % SATURATION 10.4 % Normal [facility] Comment on above: Performed By: #### B 12FOL, FETIBC ####[facility] Bl[address]qvedmg[address] [place] [address]Dr. Ivette David Iron [Mass/Vol] 19.0 ug/dL Critically low 50.0-170.0 [facility] Comment on above: Performed By: #### B 12FOL, FETIBC ####[facility] Vvnhkczmwt[address] [place] [address]Dr. Ivette Hernandez TIBC DIRECT 182.0 ug/dL Critically low 250.0-450.0 [facility] Comment on above: Performed By: #### B 12FOL, FETIBC ####[facility] Cpztzipuxu[address] [place] [address]Dr. Ivette Hernandez POINT OF CARE GLUCOSEon 04-02 Glucose [Mass/Vol] 144 mg/dL Critically high -106 [facility] Comment on above: Performed By: #### P OCGLUC ####[facility] Gzrvcoikpo[address] [place] [address]Dr. Cherjun David Glucose [Mass/Vol] 128 mg/dL Critically high -106 [facility] Comment on above: Performed By: #### P OCGLUC ####[facility] Bhwqvsvxjk[address] [place] [address]Dr. Cherjun Hernandez Glucose [Mass/Vol] 124 mg/dL Critically high -106 [facility] Comment on above: Performed By: #### P OCGLUC ####[facility] Aqnfpngaab[address] [place] [address]Dr. Ivette Hernandez PROF CHEM 8 (BAS METB)on Anion gap [Moles/Vol] 9.7 mmol/L Normal [facility] Comment on above: Performed By: #### B MP ####[facility] Dnjccngdxi3[address] [place] [address]Dr. Ivette Hernandez Calcium [Mass/Vol] 6.9 mg/dL Critically low 8.5-10.1 Th e [facility] Comment on above: Performed By: #### B MP ####[facility] Awycnffjjq[address] [place] [address]Dr. Cherjun David Chloride [Moles/Vol] 109 mmol/L Critically high 98-107 [facility] Comment on above: Performed By: #### B MP ####[facility] Soirzkhgan4[address] [place] [address]Dr. Ivette David CO2 [Moles/Vol] 29.2 mmol/L Normal 21.0-32.0 [facility] Comment on above: Performed By: #### B MP ####[facility] Bufwmlsdth[address] [place], [place] [address]Dr. Ivette Davdi Creatinine [Mass/Vol] 1.41 mg/dL Critically high 0.55-1.02 [facility] Comment on above: Performed By: #### B MP ####[facility] Yduuuomxao[address] [place], [place] [address]Dr. Ivette David EGFR-AF MALAWIAN 44 mL/min/1.73m2 Critically low >=60 [facility] Comment on above: Performed By: #### B MP ####[facility] Wcvjsdtwyb[address] [place], [place] [address]Dr. Cherjun David EGFR-NON AF MALAWIAN 37 mL/min/1.73m2 Critically low >=60 [facility] Comment on above: Performed By: #### B MP ####[facility] Liqbhvvxbv[address] [place], [place] [address]Dr. Cherjun David Glucose [Mass/Vol] 95 mg/dL Normal 74-106 [facility] Comment on above: Performed By: #### B MP ####[facility] Naomegwdmf[address] [place], [place] [address]Dr. Ivette Hernandez Potassium [Moles/Vol] 3.9 mmol/L Normal 3.5-5.1 [facility] Comment on above: Performed By: #### B MP ####[facility] Cbnihbkkij[address] [place] [address]Dr. Ivette Hernandez Sodium [Moles/Vol] 144 mmol/L Normal 136-145 [facility] Comment on above: Performed By: #### B MP ####[facility] Sdqakxbmve20[address] [place] [address]Dr. Ivette Hernandez Urea nitrogen [Mass/Vol] 25.0 mg/dL Critically high 7.0-18.0 [facility] Comment on above: Performed By: #### B MP ####[facility] Uniqxmbjcz[address] [place] [address]Dr. Ivette Hernandez Urea nitrogen/Creatinine [Mass ratio] 17.7 mg/mg Normal [facility] Comment on above: Performed By: #### B MP ####[facility] Mvtqiukypp24[address] [place] [address]Dr. Ivette Hernandez VIT B12 AND FOLATEon 022 Cobalamin (Vitamin B12) [Mass/Vol] 769.0 pg/mL Normal 193.0-986.0 [facility] Comment on above: Performed By: #### B 12FOL, FETIBC ####[facility] Ltktxouclr[address] [place] [address]Dr. Ivette Hernandez FOLATE 22.60 ng/mL Normal 8.60-58.90 [facility] Comment on above: Performed By: #### B 12FOL, FETIBC ####[facility] J[address] [place] [address]Dr. Ivette Hernandez CARDIAC CANDACE 3-6on 2 CK [Catalytic activity/Vol] 38 U/L Normal 26-192 [facility] Comment on above: Performed By: #### C MREP ####[facility] [address]ic[address]ad[address] [place] [address]Dr. Ivette Hernandez CK [Catalytic activity/Vol] 38 U/L Normal 26-192 [facility] Comment on above: Performed By: #### C MREP ####[facility] Gx[address]yt[address]ih3598 [place], [place] [address]Rw. Ivette Hernandez CK.MB [Mass/Vol] 0.11 ng/mL Normal <=3.60 The [facility] Comment on above: Performed By: #### C MREP ####[facility] Dxfqwxsgmc7525 [place], [place] [address]Ay. Ivette Hernandez CK.MB [Mass/Vol] 0.75 ng/mL Normal <=3.60 The [facility] Comment on above: Performed By: #### C MREP ####[facility] Ksunllqruo9[address] [place], [place] [address]Pf. Ivette Hernandez HSTROP 11.5 pg/mL Normal 4.0-51.3 [facility] Comment on above: Result Comment: CUT- OFF POINTS HAVE BEEN ESTABLISHED BASED ON THE FOURTH UNIVERSAL DEFINITIONS OF MYOCARDIALINFARCTION. THE UPPER REFERENCE LIMIT (URL) OF TROPONIN, DEFINED THE 99TH PERCENTILE OFcTnI DISTRIBUTION IN A REFERENCE POPULATION, HAS BEEN CONFIRMED THE DECISION THRESHOLDFOR IA DIAGNOSIS. Performed By: #### C MREP ####[facility] Bvzx[address]uhas[address] [place] [id number]. Ivette Hernandez HSTROP 11.9 pg/mL Normal 4.0-51.3 [facility] Comment on above: Result Comment: CUT- OFF POINTS HAVE BEEN ESTABLISHED BASED ON THE FOURTH UNIVERSAL DEFINITIONS OF MYOCARDIALINFARCTION. THE UPPER REFERENCE LIMIT (URL) OF TROPONIN, DEFINED THE 99TH PERCENTILE OFcTnI DISTRIBUTION IN A REFERENCE POPULATION, HAS BEEN CONFIRMED THE DECISION THRESHOLDFOR IA DIAGNOSIS. Performed By: #### C MREP ####[facility] Zakncgorom[address] [place] [id number]. Ivette Hernandez CBC AUTO DIFFon 04-10-2022 BASO # 0.0 103/ul Normal 0.0-0.1 [facility] Comment on above: Performed By: #### C BC ####[facility] Vtbickkhmi3334 [place], [place] [address]Zr. Ivette Hernandez Basophils/100 WBC (Bld) 0.3 % Normal 0.2-2.0 [facility] Comment on above: Performed By: #### C BC ####[facility] Krztvggnwh224[address] [place] [address]Dr. Ivette Hernandez EO # 0.1 103/ul Normal 0.0-0.7 [facility] Comment on above: Performed By: #### C BC ####[facility] Hxbwayenvo13[address] [place] [address]Dr. Ivette Hernandez Eosinophils/100 WBC (Bld) 0.9 % Normal 0.9-7.0 [facility] Comment on above: Performed By: #### C BC ####[facility] Cqhzkzjozi[address] [place], [place] [address]Dr. Ivette Hernandez Erythrocyte distribution width (RBC) [Ratio] 14.5 % Normal 11.0-15.0 [facility] Comment on above: Performed By: #### C BC ####[facility] Qbabslbwus[address] [place], [place] [address]Dr. Ivette Hernandez Hematocrit (Bld) [Volume fraction] 26.1 % Critically low 36.0-48.0 [facility] Comment on above: Performed By: #### C BC ####[facility] Rolzuzkwuv[address] [place], [place] [address]Dr. Ivette Hernandez Hemoglobin (Bld) [Mass/Vol] 8.0 g/dL Critically low 12.0-16.0 [facility] Comment on above: Performed By: #### C BC ####[facility] K[address]epizfoh[address] [place], [place] [address]Dr. Ivette Hernandez IG # 0.03 10e3/ul Normal 0.00-0.03 [facility] Comment on above: Performed By: #### C BC ####[facility] Dgcrpmnada[address] [place], [place] [address]Dr. Ivette Hernandez IG % 0.4 % Normal 0.0-0.5 [facility] Comment on above: Performed By: #### C BC ####[facility] Raccgzthaj[address] [place], [place] [address]Dr. Ivette Hernandez LYMPH # 2.2 103/ul Normal 1.2-3.8 [facility] Comment on above: Performed By: #### C BC ####[facility] Fschygsdfp35[address] [place] [id number]. Ivette Hernandez Lymphocytes/100 WBC (Bld) 29.3 % Normal 20.5-60.0 [facility] Comment on above: Performed By: #### C BC ####[facility] Rigzhidhpt8399 [place] [id number]. Ivette David MANUAL DIFF REQ NO Normal [facility] Comment on above: Performed By: #### C BC ####[facility] Tpnmyvymib3218 [place] [id number]. Ivette David MCH (RBC) [Entitic mass] 28.4 pg Normal 26.7-34.0 [facility] Comment on above: Performed By: #### C BC ####[facility] Edqgopecye[address] [place], [place] [address]Dr. Ivette David MCHC (RBC) [Mass/Vol] 30.7 g/dL Normal 29.9-35.2 [facility] Comment on above: Performed By: #### C BC ####[facility] Zlputwmikk3671 [place] [id number]. Ivette Hernandez MCV (RBC) [Entitic vol] 92.6 fL Normal 81.0-99.0 [facility] Comment on above: Performed By: #### C BC ####[facility] Hsgketueyv[address] [place], [place] [address]Dr. Ivette David MONO # 0.6 103/ul Normal 0.3-0.8 [facility] Comment on above: Performed By: #### C BC ####[facility] Lwcmnprqmr[address] [place], [place] [address]Dr. Ivette David Monocytes/100 WBC (Bld) 8.7 % Normal 1.7-12.0 [facility] Comment on above: Performed By: #### C BC ####[facility] Udnuwgizis[address] [place], [place] [address]Dr. Ivette Hernandez NEUT # 4.5 103/ul Normal 1.4-6.5 [facility] Comment on above: Performed By: #### C BC ####[facility] Oiunrfummk1838 [place] [id number]. Ivette Hernandze Neutrophils/100 WBC (Bld) 60.4 % Normal 43.0-75.0 [facility] Comment on above: Performed By: #### C BC ####[facility] Xmhgptayho4970 [place] [id number]. Ivette Hernandez Platelet mean volume (Bld) [Entitic vol] 9.8 fL Normal 9.5-13.5 [facility] Comment on above: Performed By: #### C BC ####[facility] Fsmoigavyx8204 [place] [id number]. Ivette Hernandez PLT 139 103/ul Critically low 150-450 [facility] Comment on above: Performed By: #### C BC ####[facility] Yhlhmfjiyj8552 [place] [id number]. Ivette Hernandez RBC 2.82 106/ul Critically low 4.20-5.40 [facility] Comment on above: Performed By: #### C BC ####[facility] Vteskzzgwl8606 [place] [address]Dr. Ivette Hernandez WBC 7.4 103/ul Normal 4.0-11.0 [facility] Comment on above: Performed By: #### C BC ####[facility] Ubdacxwnnz8213 [place] [id number]. Ivette Hernandez CULTURE BLOODon 04-10-2022 Microscopic examination of blood, culture Culture Observations: NO GROWTH AT 5 DAYS. Normal [facility] Comment on above: Performed By: #### B LDCX2 ####[facility] Cgbnoxthto12[address] [place] [id number]. Ivette Hernandez Performed By: #### B LDCX1 ####[facility] Trpdbgrvls[address] [place], [place] [address]Dr. Ivette Hernandez Covid-19 PCR (CVDTB)on SARS-CoV-2 (COVID-19) RNA MARRY+probe Ql (Unsp spec) Not detected Normal NOT DETECTED [facility] Comment on above: Result Comment: When diagnostic [...] for this test is supported by the [place] of Health and Human Service's declaration that [...] longer be used). Performed By: #### C [facility] ####[facility] Wtmnfkvbec[address] [place], [place] [address]Dr. Ivette Hernandez ER URINE PROFILEon 2 Bilirubin Ql (U) Negative Normal NEGATIVE [facility] Comment on above: Performed By: #### Ata RONDON UMICRO ####[facility] Cjhdzzketj[address] [place], [place] [address]Dr. Ivette Hernandez Clarity (U) CLEAR Normal CLEAR [facility] Comment on above: Performed By: #### Ata RONDON UMICRO ####[facility] Uyyemzbild60[address] [place], [place] [address]Dr. Ivette Hernandez Color (U) YELLOW Normal YELLOW [facility] Comment on above: Performed By: #### Ata RONDON UMICRO ####[facility] Aavmicibpq[address] [place] [address]Dr. Ivette Hernandez ERUAHD A micrscopic examina tion will be performed if indicated. Normal [facility] Comment on above: Performed By: #### Ata RONDON UMICRO ####[facility] Alachtohrc[address] [place], [place] [address]Dr. Ivette Hernandez Glucose Ql (U) Negative Normal NEGATIVE [facility] Comment on above: Performed By: #### FIDENCIO MCKOYRO ####[facility] Vujbksgfyw27[address] [place] [address]Dr. Ivette Hernandez Hemoglobin Ql (U) MODERATE Abnormal NEGATIVE [facility] Comment on above: Performed By: #### FIDENCIO MCKOYRO ####[facility] Trsyiasxoi5321 [place] [address]Dr. Ivette Hernandez Ketones Ql (U) TRACE Abnormal NEGATIVE [facility] Comment on above: Performed By: #### FIDENCIO MCKOYRO ####[facility] Xzkmuujhgh[address] [place], [place] [address]Dr. Ivette Hernandez LEUKOCYTES MODERATE Abnormal NEGATIVE [facility] Comment on above: Performed By: #### FIDENCIO MCKOYRO ####[facility] Qdzaqsfpza[address] [place], [place] [address]Dr. Ivette Hernandez Nitrite Ql (U) Negative Normal NEGATIVE [facility] Comment on above: Performed By: #### FIDENCIO MCKOYRO ####[facility] Vjbjftxtaw[address] [place], [place] [address]Dr. Ivette Hernandez pH (U) 7.0 [pH] Normal 5-9 [facility] Comment on above: Performed By: #### FIDENCIO MCKOYRO ####[facility] Uysickkmtm[address] [place], [place] [address]Dr. Ivette Hernandez SPEC GRAVITY 1.020 Normal 1.005-<=1.0 25 [facility] Comment on above: Performed By: #### FIDENCIO MCKOYRO ####[facility] Cpkahrinuh[address] [place], [place] [address]Dr. Ivette Hernandez UA PROTEIN >300 Abnormal NEGATIVE/ TRACE [facility] Comment on above: Performed By: #### FIDENCIO MCKOYRO ####[facility] Doqlpsfmda[address] [place], [place] [address]Dr. Ivette Hernandez UR MICRO IND INDICATED Normal [facility] Comment on above: Performed By: #### FIDENCIO MCKOYRO ####[facility] Qevwjgchiv8[address] [place], [place] [address]Dr. Ivette Hernandez Urobilinogen Qn (U) 0.2 {Mack'U}/dL Normal 0.2 - 1. 0 [facility] Comment on above: Performed By: #### E SONNY RONDON ####[facility] Bvueykpzzt[address] [place] [address]Dr. Ivette Hernandez POINT OF CARE GLUCOSEon 12-0 Glucose [Mass/Vol] 115 mg/dL Critically high 74-106 [facility] Comment on above: Performed By: #### P OCGLUC ####[facility] Zohuvauikt[address] [place] [address]Dr. Ivette Hernandez Glucose [Mass/Vol] 123 mg/dL Critically high 74-106 [facility] Comment on above: Performed By: #### P OCGLUC ####[facility] Ypbmiermrk[address] [place], [place] [address]Dr. Ivette Hernandez Glucose [Mass/Vol] 164 mg/dL Critically high 74-106 [facility] Comment on above: Performed By: #### P OCGLUC ####[facility] Zfxtlszfae[address] [place], [place] [address]Dr. Ivette Hernandez PROF CHEM 8 (BAS METB)on Anion gap [Moles/Vol] 11.8 mmol/L Normal [facility] Comment on above: Performed By: #### B MP ####[facility] Maebsmgupc[address] [place], [place] [address]Dr. Ivette Hernandez Calcium [Mass/Vol] 6.5 mg/dL Critically low 8.5-10.1 [facility] Comment on above: Performed By: #### B MP ####[facility] Ehthnohnkq[address] [place], [place] [address]Dr. Ivette Hernandez Chloride [Moles/Vol] 108 mmol/L Critically high 98-107 [facility] Comment on above: Performed By: #### B MP ####[facility] Mzrrljflov[address] [place], [place] [address]Dr. Ivette Hernandez CO2 [Moles/Vol] 29.2 mmol/L Normal 21.0-32.0 [facility] Comment on above: Performed By: #### B MP ####[facility] Yehqdzxala[address] [place] [address]Dr. Ivette Hernandez Creatinine [Mass/Vol] 1.61 mg/dL Critically high 0.55-1.02 [facility] Comment on above: Performed By: #### B MP ####[facility] Llpcepxaor5[address] [place] [address]Dr. Ivette Hernandez EGFR-AF MALAWIAN 38 mL/min/1.73m2 Critically low >=60 [facility] Comment on above: Performed By: #### B MP ####[facility] Qpzlulhoiy[address] [place] [address]Dr. Ivette David EGFR-NON AF MALAWIAN 31 mL/min/1.73m2 Critically low >=60 [facility] Comment on above: Performed By: #### B MP ####[facility] Cragstlnoq[address] [place], [place] [address]Dr. Ivette David Glucose [Mass/Vol] 107 mg/dL Critically high 74-106 [facility] Comment on above: Performed By: #### B MP ####[facility] Elnedjdnaj9[address] [place], [place] [address]Dr. Ivette David Potassium [Moles/Vol] 4.0 mmol/L Normal 3.5-5.1 [facility] Comment on above: Performed By: #### B MP ####[facility] Nzviaeqvwt39[address] [place], [place] [address]Dr. Ivette Hernandez Sodium [Moles/Vol] 145 mmol/L Normal 136-145 [facility] Comment on above: Performed By: #### B MP ####[facility] Mxdqcqemjq1760 [place] [address]Dr. Ivette Hernandez Urea nitrogen [Mass/Vol] 23.0 mg/dL Critically high 7.0-18.0 [facility] Comment on above: Performed By: #### B MP ####[facility] Mvdrdphlmn0661 [place] [address]Dr. Ivette Hernandez Urea nitrogen/Creatinine [Mass ratio] 14.3 mg/mg Normal [facility] Comment on above: Performed By: #### B MP ####[facility] Hmnnjoxfqt7[address] [place], [place] [address]Dr. Ivette Hernandez URINE MICROSCOPIC ONLYon BACTERIA MODERATE Abnormal NONE SEEN [facility] Comment on above: Performed By: #### FIDENCIO MCKOYRO ####[facility] Xknkurgybx55[address] [place] [address]Dr. Ivette Hernandez Bacteria identified Cx Nom (U) INDICATED Normal [facility] Comment on above: Performed By: #### Ata RONDON UMICRO ####[facility] Hklbprgonj[address] [place], [place] [address]Dr. Ivette Hernandez CAST NONE SEEN Normal NONE SEEN [facility] Comment on above: Performed By: #### FIDENCIO MCKOYRO ####[facility] Bqmrjkdkiw[address] [place], [place] [address]Dr. Ivette Hernandez Crystals LM Nom (Urine sed) NONE SEEN Normal NONE SEEN [facility] Comment on above: Performed By: #### Ata RONDON UMICRO ####[facility] Zoieasetxf63[address] [place], [place] [address]Dr. Ivette Hernandez Epithelial cells LM Ql (Urine sed) RARE Normal NONE SEEN /RARE [facility] Comment on above: Performed By: #### Ata RONDON UMICRO ####[facility] Nkqnxcnibi8[address] [place], [place] [address]Dr. Ivette Hernandez MUCOUS NONE SEEN Normal NONE SEEN [facility] Comment on above: Performed By: #### FIDENCIO MCKOYRO ####[facility] Esmxgwcefy[address] [place], [place] [address]Dr. Ivette Hernandez RBC NONE SEEN Abnormal 0-2 [facility] Comment on above: Performed By: #### FIDENCIO MCKOYRO ####[facility] [address]rmfud[address]exf[address] [place], [place] [address]Dr. Ivette Hernandez WBC 20-50 Abnormal NONE SEEN The [facility] Comment on above: Performed By: #### FIDENCIO MCKOYRO ####[facility] Vsjwphmsda[address] [place], [place] [address]Dr. Ivette Hernandez XR CHEST 1 Von 04-10-2022 XR CHEST 1 V Normal The [facility] CARDIAC CANDACE ADMITon 022 CK [Catalytic activity/Vol] 37 U/L Normal 26-192 The [facility] Comment on above: Performed By: #### C RODDY, BMP ####[facility] Iesxsxmowc[address] [place] [id number]. Cherjun Hernandez CK.MB [Mass/Vol] 0.14 ng/mL Normal <=3.60 The [facility] Comment on above: Performed By: #### C RODDY, BMP ####[facility] Flpnbunbbe[address] [place] [address]Dr. Ivette David HSTROP 11.0 pg/mL Normal 4.0-51.3 The [facility] Comment on above: Result Comment: CUT- OFF POINTS HAVE BEEN ESTABLISHED BASED ON THE FOURTH UNIVERSAL DEFINITIONS OF MYOCARDIALINFARCTION. THE UPPER REFERENCE LIMIT (URL) OF TROPONIN, DEFINED THE 99TH PERCENTILE OFcTnI DISTRIBUTION IN A REFERENCE POPULATION, HAS BEEN CONFIRMED THE DECISION THRESHOLDFOR IA DIAGNOSIS. Performed By: #### C RODDY, BMP ####[facility] Mlenhgccho[address] [place] [address]Dr. Cherjun Hernandez CARMITA 1 ng/mL Critically low 9-82 The [facility] Comment on above: Performed By: #### C RODDY, BMP ####[facility] Jhvzxcpmlm15[address] [place] [id number]. Ivette Hernandez CBC AUTO DIFFon 04-09-2022 BASO # 0.0 103/ul Normal 0.0-0.1 The [facility] Comment on above: Performed By: #### C BC ####[facility] Bqltgxjygx06[address] [place] [id number] Hernandez Basophils/100 WBC (Bld) 0.2 % Normal 0.2-2.0 The [facility] Comment on above: Performed By: #### C BC ####[facility] Ezgiwfxogl5[address] [place] [id number] Hernandez EO # 0.0 103/ul Normal 0.0-0.7 The [facility] Comment on above: Performed By: #### C BC ####[facility] Kxycutlogw84[address] [place] [id number]. Ivette Hernandez Eosinophils/100 WBC (Bld) 0.5 % Critically low 0.9-7.0 The [facility] Comment on above: Performed By: #### C BC ####[facility] Kyekoorwij[address] [place] [address]Dr. Ivette Hernandez Erythrocyte distribution width (RBC) [Ratio] 14.6 % Normal 11.0-15.0 The [facility] Comment on above: Performed By: #### C BC ####[facility] Mytslvvmpa01[address] [place], [place] [address]Dr. Ivette Hernandez Hematocrit (Bld) [Volume fraction] 27.0 % Critically low 36.0-48.0 The [facility] Comment on above: Performed By: #### C BC ####[facility] Cktsfrihtd[address] [place], [place] [address]Dr. Ivette Hernandez Hemoglobin (Bld) [Mass/Vol] 8.5 g/dL Critically low 12.0-16.0 The [facility] Comment on above: Performed By: #### C BC ####[facility] Dtybpubtro7[address] [place], [place] [address]Dr. Ivette Hernandez IG # 0.02 10e3/ul Normal 0.00-0.03 The [facility] Comment on above: Performed By: #### C BC ####[facility] Oyzvyvwvwu[address] [place], [place] [address]Dr. Ivette Hernandez IG % 0.2 % Normal 0.0-0.5 The [facility] Comment on above: Performed By: #### C BC ####[facility] Axauygpnad205[address] [place], [place] [address]Dr. Ivette Hernandez LYMPH # 1.4 103/ul Normal 1.2-3.8 The [facility] Comment on above: Performed By: #### C BC ####[facility] Bhkcaqyiqt40[address] [place], [place] [address]Dr. Ivette Hernandez Lymphocytes/100 WBC (Bld) 17.2 % Critically low 20.5-60.0 [facility] Comment on above: Performed By: #### C BC ####[facility] Mvcglbgktt[address] [place] [address]Dr. Ivette Hernandez MANUAL DIFF REQ NO Normal [facility] Comment on above: Performed By: #### C BC ####[facility] Ippotsrass8406 [place] [id number]. Ivette Hernandez MCH (RBC) [Entitic mass] 28.7 pg Normal 26.7-34.0 [facility] Comment on above: Performed By: #### C BC ####[facility] Aeqrnogglx7362 [place] [address]Dr. Ivette Hernandez MCHC (RBC) [Mass/Vol] 31.5 g/dL Normal 29.9-35.2 The [facility] Comment on above: Performed By: #### C BC ####[facility] Lfliorilld[address] [place], [place] [address]Dr. Ivette Hernandez MCV (RBC) [Entitic vol] 91.2 fL Normal 81.0-99.0 [facility] Comment on above: Performed By: #### C BC ####[facility] Dhceyrnhkw[address] [place], [place] [address]Dr. Ivette Hernandez MONO # 0.5 103/ul Normal 0.3-0.8 The [facility] Comment on above: Performed By: #### C BC ####[facility] Lwhkluljix65[address] [place], [place] [address]Dr. Ivette Hernandez Monocytes/100 WBC (Bld) 6.5 % Normal 1.7-12.0 The [facility] Comment on above: Performed By: #### C BC ####[facility] Wrgzssiqpc[address] [place], [place] [address]DrJesse Hernandez NEUT # 6.3 103/ul Normal 1.4-6.5 The [facility] Comment on above: Performed By: #### C BC ####[facility] Xqybckhltd[address] [place], [place] [address]DrJesse Hernandez Neutrophils/100 WBC (Bld) 75.4 % Critically high 43.0-75.0 [facility] Comment on above: Performed By: #### C BC ####[facility] Mbsvearqhl87[address] [place] [address]Dr. Ivette David Platelet mean volume (Bld) [Entitic vol] 9.8 fL Normal 9.5-13.5 [facility] Comment on above: Performed By: #### C BC ####[facility] Eyshasleya[address] [place] [address]Dr. Cherjun David PLT 158 103/ul Normal 150-450 [facility] Comment on above: Performed By: #### C BC ####[facility] Dasdsbnuus3[address] [place] [address]Dr. Ivette Hernandez RBC 2.96 106/ul Critically low 4.20-5.40 [facility] Comment on above: Performed By: #### C BC ####[facility] Vmeesiwiyk04[address] [place] [address]Dr. Ivette Hernandez WBC 8.4 103/ul Normal 4.0-11.0 [facility] Comment on above: Performed By: #### C BC ####[facility] Avzisasocu[address] [place] [address]DrJesse Hernandez LACTATE/LACTIC ACIDon 2021 Lactate [Moles/Vol] 0.9 mmol/L Normal 0.4-1.9 [facility] Comment on above: Performed By: #### L ACT ####[facility] Chblwgjbjj5036 [place] [address]DrJesse Hernandez PROF CHEM 8 (BAS METB)on Anion gap [Moles/Vol] 8.8 mmol/L Normal [facility] Comment on above: Performed By: #### C RODDY BMP ####[facility] Bphlkclwig[address] [place] [address]DrJesse Hernandez Calcium [Mass/Vol] 6.9 mg/dL Critically low 8.5-10.1 [facility] Comment on above: Performed By: #### C RODDY, BMP ####[facility] Xtvprnmdpm9[address] [place] [address]Dr. Ivette Hernandez Chloride [Moles/Vol] 105 mmol/L Normal 98-107 [facility] Comment on above: Performed By: #### Daren PEREYRA, BMP ####[facility] Jsyiljwzza8[address] [place] [address]Dr. Ivette Hernandez CO2 [Moles/Vol] 28.1 mmol/L Normal 21.0-32.0 The [facility] Comment on above: Performed By: #### C RODDY, BMP ####[facility] Qclcuxwiou7822 [place] [address]Dr. Ivette Hernandez Creatinine [Mass/Vol] 1.77 mg/dL Critically high 0.55-1.02 [facility] Comment on above: Performed By: #### C RODDY, BMP ####[facility] Ljvegdofte6465 [place] [address]Dr. Ivette Hernandez EGFR-AF MALAWIAN 34 mL/min/1.73m2 Critically low >=60 [facility] Comment on above: Performed By: #### Daren PEREYRA, BMP ####[facility] Jxuwlkfthj8180 [place] [address]Dr. Ivette Hernandez EGFR-NON AF MALAWIAN 28 mL/min/1.73m2 Critically low >=60 [facility] Comment on above: Performed By: #### Daren PEREYRA, BMP ####[facility] Mbluqhpksj[address] [place] [address]Dr. Ivette Hernandez Glucose [Mass/Vol] 130 mg/dL Critically high 74-106 [facility] Comment on above: Performed By: #### C RODDY, BMP ####[facility] Cfjogerooz8468 [place] [address]Dr. Ivette Hernandez Potassium [Moles/Vol] 3.9 mmol/L Normal 3.5-5.1 [facility] Comment on above: Performed By: #### C RODDY, BMP ####[facility] Hpozhggwcs364[address] [place] [address]Dr. Ivette Hernandez Sodium [Moles/Vol] 138 mmol/L Normal 136-145 [facility] Comment on above: Performed By: #### C RODDY, BMP ####[facility] Qotzsavvwz[address] [place], [place] [address]Dr. Ivette Hernandez Urea nitrogen [Mass/Vol] 25.0 mg/dL Critically high 7.0-18.0 The [facility] Comment on above: Performed By: #### C BENJYM, BMP ####[facility] Hvloigjbry[address] [place], [place] [address]Dr. Ivette Hernandez Urea nitrogen/Creatinine [Mass ratio] 14.1 mg/mg Normal The [facility] Comment on above: Performed By: #### C RODDY, BMP ####[facility] Dankcvibkl6[address] [place], [place] [address]Dr. Ivette Hernandez AMMONIAon 03-10-2022 Ammonia (P) [Moles/Vol] 12 umol/L Normal The [facility] Comment on above: Performed By: #### A MM ####[facility] Lzwblcwqiq[address] [place], [place] [address]Dr. Ivette Hernandez BNPon 03-10-2022 Natriuretic peptide B (Bld) [Mass/Vol] 9132.0 pg/mL Critically high <=900.0 The [facility] Comment on above: Performed By: #### M G, CMP, PHOS, BNP ####[facility] Xwvzcnjkgs[address] [place], [place] [address]Dr. Ivette Hernandez CBC AUTO DIFFon 03-10-2022 BASO # 0.0 103/ul Normal 0.0-0.1 The [facility] Comment on above: Performed By: #### C BC ####[facility] Gdcjfcmxzk3264[address] [place], [place] [address]Dr. Ivette Hernandez Basophils/100 WBC (Bld) 0.3 % Normal 0.2-2.0 The [facility] Comment on above: Performed By: #### C BC ####[facility] Yjgjszsxfv[address] [place], [place] [address]Dr. Ivette Hernandez EO # 0.3 103/ul Normal 0.0-0.7 The [facility] Comment on above: Performed By: #### C BC ####[facility] Zisqcmubwj080[address] [place] [address]Dr. Ivette Hernandez Eosinophils/100 WBC (Bld) 3.2 % Normal 0.9-7.0 The [facility] Comment on above: Performed By: #### C BC ####[facility] Qajjndftad[address] [place], [place] [address]Dr. Ivette Hernandez Erythrocyte distribution width (RBC) [Ratio] 14.3 % Normal 11.0-15.0 The [facility] Comment on above: Performed By: #### C BC ####[facility] Nswhawshij8[address] [place], [place] [address]Dr. Ivette Hernandez Hematocrit (Bld) [Volume fraction] 25.5 % Critically low 36.0-48.0 The [facility] Comment on above: Performed By: #### C BC ####[facility] Wbitjgbrsf[address] [place], [place] [address]Dr. Ivette Hernandez Hemoglobin (Bld) [Mass/Vol] 8.0 g/dL Critically low 12.0-16.0 [facility] Comment on above: Performed By: #### C BC ####[facility] Sajstlgmqe39[address] [place], [place] [address]Dr. Ivette Hernandez IG # 0.05 10e3/ul Critically high 0.00-0.03 [facility] Comment on above: Performed By: #### C BC ####[facility] Npqtctbiig64[address] [place], [place] [address]Dr. Ivette Hernandez IG % 0.6 % Critically high 0.0-0.5 [facility] Comment on above: Performed By: #### C BC ####[facility] Pyxvgwccoa00[address] [place], [place] [address]Dr. Ivette Hernandez LYMPH # 1.9 103/ul Normal 1.2-3.8 The [facility] Comment on above: Performed By: #### C BC ####[facility] Ymreqevbdn20[address] [place], [place] [address]Dr. Ivette Hernandez Lymphocytes/100 WBC (Bld) 20.8 % Normal 20.5-60.0 The [facility] Comment on above: Performed By: #### C BC ####[facility] Clwdegazbt[address] [place] [id number]. Ivette Hernandez MANUAL DIFF REQ NO Normal [facility] Comment on above: Performed By: #### C BC ####[facility] Aygbtqrfhy5125 [place] [id number]. Ivette Hernandez MCH (RBC) [Entitic mass] 28.7 pg Normal 26.7-34.0 The [facility] Comment on above: Performed By: #### C BC ####[facility] Pofnaejwhs58[address] [place] [id number]. Ivette Hernandez MCHC (RBC) [Mass/Vol] 31.4 g/dL Normal 29.9-35.2 The [facility] Comment on above: Performed By: #### C BC ####[facility] Dzmlgtmxxw20[address] [place] [address]Dr. Ivette David MCV (RBC) [Entitic vol] 91.4 fL Normal 81.0-99.0 The [facility] Comment on above: Performed By: #### C BC ####[facility] Ufbbhrtrdt7[address] [place] [id number]. Ivette David MONO # 0.5 103/ul Normal 0.3-0.8 The [facility] Comment on above: Performed By: #### C BC ####[facility] Ajfimmhdxh6950 [place] [address]Dr. Cherjun Hernandez Monocytes/100 WBC (Bld) 5.6 % Normal 1.7-12.0 The [facility] Comment on above: Performed By: #### C BC ####[facility] Wtlldpqugf7296 [place] [id number]. Ivette Hernandez NEUT # 6.2 103/ul Normal 1.4-6.5 The [facility] Comment on above: Performed By: #### C BC ####[facility] Laxpnteymt6551 [place] [id number]. Cherjun Hernandez Neutrophils/100 WBC (Bld) 69.5 % Normal 43.0-75.0 The [facility] Comment on above: Performed By: #### C BC ####[facility] Tlusibemhe1232 [place] [id number]. Ivette Hernandez Platelet mean volume (Bld) [Entitic vol] 9.3 fL Critically low 9.5-13.5 [facility] Comment on above: Performed By: #### C BC ####[facility] Ntmbdttguk46[address] [place] [id number]. Ivette Hernandez PLT 213 103/ul Normal 150-450 The [facility] Comment on above: Performed By: #### C BC ####[facility] Xymiglirrf1142 [place] [id number]. Ivette Hernandez RBC 2.79 106/ul Critically low 4.20-5.40 [facility] Comment on above: Performed By: #### C BC ####[facility] Lannocpszw[address] [place] [address]Dr. Ivette Hernandez WBC 8.9 103/ul Normal 4.0-11.0 The [facility] Comment on above: Performed By: #### C BC ####[facility] Gyttsdsjas8[address] [place], [place] [address]Dr. Ivette Hernandez MAGNESIUMon 03-10-2022 Magnesium [Mass/Vol] 1.9 mg/dL Normal 1.8-2.4 [facility] Comment on above: Performed By: #### M G, CMP, PHOS, BNP ####[facility] Vdqwnkzrhj46[address] [place] [address]Dr. Ivette Hernandez PHOSPHORUSon 03-10-2022 Phosphate [Mass/Vol] 3.8 mg/dL Normal 2.6-4.7 [facility] Comment on above: Performed By: #### M G, CMP, PHOS, BNP ####[facility] Spifiegyil39[address] [place] [address]Dr. Cherjun Hernandez PROF 14(COMP METB)on 022 Albumin [Mass/Vol] 2.3 g/dL Critically low 3.4-5.0 Th [facility] Comment on above: Performed By: #### M G, CMP, PHOS, BNP ####[facility] Tgyycmqyzg[address] [place], [place] [address]Dr. Ivette Hernandez Albumin/Globulin [Mass ratio] 0.6 {ratio} Normal [facility] Comment on above: Performed By: #### M G, CMP, PHOS, BNP ####[facility] Bqejsdoxmk22[address] [place] [address]Dr. Ivette Hernandez ALP [Catalytic activity/Vol] 64 U/L Normal 46-116 [facility] Comment on above: Performed By: #### M G, CMP, PHOS, BNP ####[facility] Jllzyrupto5[address] [place] [address]Dr. Ivette Hernandez ALT [Catalytic activity/Vol] 14 U/L Normal 14-59 [facility] Comment on above: Performed By: #### M G, CMP, PHOS, BNP ####[facility] Riuuwqwksb8254 [place] [address]Dr. Ivette Hernandez Anion gap [Moles/Vol] 3.4 mmol/L Normal [facility] Comment on above: Performed By: #### M G, CMP, PHOS, BNP ####[facility] Iwccfhyftb[address] [place], [place] [address]Dr. Cherjun Hernandez AST [Catalytic activity/Vol] 20 U/L Normal 15-37 [facility] Comment on above: Performed By: #### M G, CMP, PHOS, BNP ####[facility] Zsgvsxrzpb4165 [place] [address]Dr. Ivette Hernandez Bilirubin [Mass/Vol] 0.3 mg/dL Normal 0.2-1.0 [facility] Comment on above: Performed By: #### M G, CMP, PHOS, BNP ####[facility] Rfiqkqnncn55[address] [place] [address]Dr. Ivette Hernandez Calcium [Mass/Vol] 8.3 mg/dL Critically low 8.5-10.1 Th e [facility] Comment on above: Performed By: #### M G, CMP, PHOS, BNP ####[facility] Qpnlsirvrl6893 [place] [address]Dr. Ivette Hernandez Chloride [Moles/Vol] 100 mmol/L Normal 98-107 [facility] Comment on above: Performed By: #### M G, CMP, PHOS, BNP ####[facility] Mbidywgayy17[address] [place] [address]Dr. Ivette Hernandez CO2 [Moles/Vol] 38.3 mmol/L Critically high 21.0-32.0 [facility] Comment on above: Performed By: #### M G, CMP, PHOS, BNP ####[facility] Qmaeqnoszu1801 [place] [address]Dr. Ivette Hernandez Creatinine [Mass/Vol] 1.50 mg/dL Critically high 0.55-1.02 [facility] Comment on above: Performed By: #### M G, CMP, PHOS, BNP ####[facility] Egokixwotp42[address] [place] [address]Dr. Ivette Hernandez EGFR-AF MALAWIAN 41 mL/min/1.73m2 Critically low >=60 [facility] Comment on above: Performed By: #### M G, CMP, PHOS, BNP ####[facility] Mcozervglu8275 [place] [address]Dr. Ivette Hernandez EGFR-NON AF MALAWIAN 34 mL/min/1.73m2 Critically low >=60 The [facility] Comment on above: Performed By: #### M G, CMP, PHOS, BNP ####[facility] Qhmuqyocgy0634 [place] [address]Dr. Ivette Hernandez Globulin (S) [Mass/Vol] 4.1 g/dL Normal [facility] Comment on above: Performed By: #### M G, CMP, PHOS, BNP ####[facility] Qpuuqpfjbo5[address] [place] [address]Dr. Ivette Hernandez Glucose [Mass/Vol] 114 mg/dL Critically high 74-106 [facility] Comment on above: Performed By: #### M G, CMP, PHOS, BNP ####[facility] Mkosslewek26[address] [place] [address]Dr. Ivette Hernandez Potassium [Moles/Vol] 3.7 mmol/L Normal 3.5-5.1 The [facility] Comment on above: Performed By: #### M G, CMP, PHOS, BNP ####[facility] Iyfovilpin38[address] [place] [address]Dr. Ivette Hernandez Protein [Mass/Vol] 6.4 g/dL Normal 6.4-8.2 [facility] Comment on above: Performed By: #### M G, CMP, PHOS, BNP ####[facility] Hugktsdbab3173 [place] [address]Dr. Ivette Hernandez Sodium [Moles/Vol] 138 mmol/L Normal 136-145 [facility] Comment on above: Performed By: #### M G, CMP, PHOS, BNP ####[facility] Mxeulzvakv[address] [place], [place] [address]Dr. Ivette Hernandez Urea nitrogen [Mass/Vol] 20.0 mg/dL Critically high 7.0-18.0 The [facility] Comment on above: Performed By: #### M G, CMP, PHOS, BNP ####[facility] Gbstfzrtar65[address] [place], [place] [address]Dr. Ivette Hernandez Urea nitrogen/Creatinine [Mass ratio] 13.3 mg/mg Normal [facility] Comment on above: Performed By: #### M G, CMP, PHOS, BNP ####[facility] Wnslrkxqzz67[address] [place], [place] [address]Dr. Ivette Hernandez AMMONIAon 03-09-2022 Ammonia (P) [Moles/Vol] 15 umol/L Normal 11-32 The [facility] Comment on above: Performed By: #### A MM ####[facility] Grvdifwxae[address] [place], [place] [address]Dr. Ivette Hernandez BNPon 03-09-2022 Natriuretic peptide B (Bld) [Mass/Vol] 83122.0 pg/mL Critically high <=900.0 The [facility] Comment on above: Performed By: #### B BALE STACKER, PHOS, MG, CMP ####[facility] Crgrlwduoe[address] [place], [place] [address]Dr. Ivette Hernandez CBC AUTO DIFFon 03-09-2022 BASO # 0.0 103/ul Normal 0.0-0.1 The [facility] Comment on above: Performed By: #### C BC ####[facility] Yclgoknsuk[address] [place] [id number]. Ivette Hernandez BASO # 0.0 103/ul Normal 0.0-0.1 The [facility] Comment on above: Performed By: #### C BC ####[facility] [address] [place] [id number]. Ivette Hernandez Basophils/100 WBC (Bld) 0.5 % Normal 0.2-2.0 [facility] Comment on above: Performed By: #### C BC ####[facility] P[address]ws[address] [place], [place] [id number]. Ivette Hernandez Basophils/100 WBC (Bld) 0.5 % Normal 0.2-2.0 [facility] Comment on above: Performed By: #### C BC ####[facility] Viaqfaqgpd[address] [place], [place] [id number]. Ivette Hernandez EO # 0.2 103/ul Normal 0.0-0.7 [facility] Comment on above: Performed By: #### C BC ####[facility] Gglqzjtuas[address] [place], [place] [id number]. Ivette Hernandez EO # 0.2 103/ul Normal 0.0-0.7 [facility] Comment on above: Performed By: #### C BC ####[facility] Lnkrpvdesn[address] [place], [place] [id number]. Ivette Hernandez Eosinophils/100 WBC (Bld) 2.8 % Normal 0.9-7.0 [facility] Comment on above: Performed By: #### C BC ####[facility] B[address]uv[address]ie[address] [place], [place] [id number]. Ivette Hernandez Eosinophils/100 WBC (Bld) 2.6 % Normal 0.9-7.0 [facility] Comment on above: Performed By: #### C BC ####[facility] Bmzejvwjpr[address] [place], [place] [id number]. Ivette Hernandez Erythrocyte distribution width (RBC) [Ratio] 14.3 % Normal 11.0-15.0 [facility] Comment on above: Performed By: #### C BC ####[facility] [address] [place] [address]Dr. Ivette Hernandez Erythrocyte distribution width (RBC) [Ratio] 14.2 % Normal 11.0-15.0 [facility] Comment on above: Performed By: #### C BC ####[facility] Okxobeeqov319[address] [place], [place] [address]Dr. Ivette Hernandez Hematocrit (Bld) [Volume fraction] 25.2 % Critically low 36.0-48.0 [facility] Comment on above: Performed By: #### C BC ####[facility] Ljxoqwqsln[address] [place], [place] [address]Dr. Ivette Hernandez Hematocrit (Bld) [Volume fraction] 26.7 % Critically low 36.0-48.0 [facility] Comment on above: Performed By: #### C BC ####[facility] Glfsrhrsrp466[address] [place], [place] [address]Dr. Ivette Hernandez Hemoglobin (Bld) [Mass/Vol] 7.8 g/dL Critically low 12.0-16.0 [facility] Comment on above: Performed By: #### C BC ####[facility] Eyduezyacl[address] [place], [place] [address]Dr. Ivette Hernandez Hemoglobin (Bld) [Mass/Vol] 8.3 g/dL Critically low 12.0-16.0 [facility] Comment on above: Performed By: #### C BC ####[facility] Hkwcnxubng50[address] [place], [place] [address]Dr. Ivette Hernandez IG # 0.02 10e3/ul Normal 0.00-0.03 [facility] Comment on above: Performed By: #### C BC ####[facility] Gveevfqosy725[address] [place], [place] [address]Dr. Ivette Hernandez IG # 0.05 10e3/ul Critically high 0.00-0.03 [facility] Comment on above: Performed By: #### C BC ####[facility] Vykojiwpar15[address] [place], [place] [address]Dr. Ivette Hernandez IG % 0.3 % Normal 0.0-0.5 [facility] Comment on above: Performed By: #### C BC ####[facility] Weudjqmvyx[address] [place] [address]Dr. Ivette Hernandez IG % 0.7 % Critically high 0.0-0.5 [facility] Comment on above: Performed By: #### C BC ####[facility] Ornofpwnus[address] [place] [address]Dr. Ivette Hernandez LYMPH # 1.6 103/ul Normal 1.2-3.8 [facility] Comment on above: Performed By: #### C BC ####[facility] Vpwlipdndd6784[address] [place], [place] [address]Dr. Ivette Hernandez LYMPH # 1.4 103/ul Normal 1.2-3.8 [facility] Comment on above: Performed By: #### C BC ####[facility] Reeosxhqzm5[address] [place], [place] [address]Dr. Ivette Hernandez Lymphocytes/100 WBC (Bld) 24.5 % Normal 20.5-60.0 [facility] Comment on above: Performed By: #### C BC ####[facility] Tnyivbcrvl[address] [place], [place] [address]Dr. Ivette Hernandez Lymphocytes/100 WBC (Bld) 17.6 % Critically low 20.5-60.0 [facility] Comment on above: Performed By: #### C BC ####[facility] Gehetgjmei8256[address] [place], [place] [address]Dr. Ivette Hernandez MANUAL DIFF REQ NO Normal [facility] Comment on above: Performed By: #### C BC ####[facility] Wtvmvbzjss4[address] [place], [place] [address]Dr. Ivette Hernandez MANUAL DIFF REQ NO Normal [facility] Comment on above: Performed By: #### C BC ####[facility] Sqbkqupval4632[address] [place], [place] [address]Dr. Ivette Hernandez MCH (RBC) [Entitic mass] 28.4 pg Normal 26.7-34.0 [facility] Comment on above: Performed By: #### C BC ####[facility] [address]ysm[address] [place] [address]Dr. Ivette Hernandez MCH (RBC) [Entitic mass] 28.6 pg Normal 26.7-34.0 [facility] Comment on above: Performed By: #### C BC ####[facility] Murxjwffnp[address] [place], [place] [address]Dr. Ivette Hernandez MCHC (RBC) [Mass/Vol] 31.0 g/dL Normal 29.9-35.2 [facility] Comment on above: Performed By: #### C BC ####[facility] Lazuajzrhz30[address] [place] [address]Dr. Ivette Hernandez MCHC (RBC) [Mass/Vol] 31.1 g/dL Normal 29.9-35.2 [facility] Comment on above: Performed By: #### C BC ####[facility] Cvkfeafgga7699[address] [place], [place] [address]Dr. Ivette Hernandez MCV (RBC) [Entitic vol] 91.6 fL Normal 81.0-99.0 [facility] Comment on above: Performed By: #### C BC ####[facility] Rvwxfsdgrb6[address] [place], [place] [address]Dr. Ivette Hernandez MCV (RBC) [Entitic vol] 92.1 fL Normal 81.0-99.0 [facility] Comment on above: Performed By: #### C BC ####[facility] Idjgxmxfge6[address] [place], [place] [address]Dr. Ivette Hernandez MONO # 0.5 103/ul Normal 0.3-0.8 [facility] Comment on above: Performed By: #### C BC ####[facility] Dviiunvpkg6354[address] [place], [place] [address]Dr. Ivette Hernandez MONO # 0.5 103/ul Normal 0.3-0.8 [facility] Comment on above: Performed By: #### C BC ####[facility] Issxhzbtpb2737[address] [place], [place] [address]Dr. Ivette Hernandez Monocytes/100 WBC (Bld) 7.8 % Normal 1.7-12.0 [facility] Comment on above: Performed By: #### C BC ####[facility] Fcojzkdidf[address] [place] [address]Dr. Ivette Hernandez Monocytes/100 WBC (Bld) 6.2 % Normal 1.7-12.0 [facility] Comment on above: Performed By: #### C BC ####[facility] Iwzzeukvaa20[address] [place], [place] [address]Dr. Ivette Hernandez NEUT # 4.2 103/ul Normal 1.4-6.5 [facility] Comment on above: Performed By: #### C BC ####[facility] Jwowjgexya898[address] [place], [place] [address]Dr. Ivette Hernandez NEUT # 5.6 103/ul Normal 1.4-6.5 [facility] Comment on above: Performed By: #### C BC ####[facility] Oimootgujy7333[address] [place], [place] [address]Dr. Ivette Hernandez Neutrophils/100 WBC (Bld) 64.1 % Normal 43.0-75.0 [facility] Comment on above: Performed By: #### C BC ####[facility] Nateiejofq1585[address] [place], [place] [address]Dr. Ivette Hernandez Neutrophils/100 WBC (Bld) 72.4 % Normal 43.0-75.0 [facility] Comment on above: Performed By: #### C BC ####[facility] Zksyxtntnn37[address] [place], [place] [address]Dr. Ivette Hernandez Platelet mean volume (Bld) [Entitic vol] 9.2 fL Critically low 9.5-13.5 [facility] Comment on above: Performed By: #### C BC ####[facility] Tdarhkaaig[address] [place], [place] [address]Dr. Ivette Hernandez Platelet mean volume (Bld) [Entitic vol] 9.6 fL Normal 9.5-13.5 [facility] Comment on above: Performed By: #### C BC ####[facility] Osimxolhfv[address] [place], [place] [address]Dr. Ivette Hernandez PLT 208 103/ul Normal 150-450 [facility] Comment on above: Performed By: #### C BC ####[facility] U[address] [place], [place] [address]Zi. Ivette Hernandez PLT 233 103/ul Normal 150-450 [facility] Comment on above: Performed By: #### C BC ####[facility] Wsxichgvhu4[address] [place], [place] [address]Bd. Ivette Hernandez RBC 2.75 106/ul Critically low 4.20-5.40 [facility] Comment on above: Performed By: #### C BC ####[facility] Itwsytopab032[address] [place] [id number]. Ivette Hernandez RBC 2.90 106/ul Critically low 4.20-5.40 [facility] Comment on above: Performed By: #### C BC ####[facility] Jryoqnyggl7[address] [place], [place] [address]Dr. Ivette Hernandez WBC 6.5 103/ul Normal 4.0-11.0 [facility] Comment on above: Performed By: #### C BC ####[facility] M[address]mvhuqvc8[address] [place] [id number]. Ivette Hernandez WBC 7.7 103/ul Normal 4.0-11.0 [facility] Comment on above: Performed By: #### C BC ####[facility] Vsjsmrhpqf9[address] [place] [id number]. Ivette Hernandez MAGNESIUMon 03-09-2022 Magnesium [Mass/Vol] 1.7 mg/dL Critically low 1.8-2.4 The [facility] Comment on above: Performed By: #### B BALE STACKER, PHOS, MG, CMP ####[facility] Teixirbwqp24[address] [place] [id number]. Ivette Hernandez MRI BRAIN WO CONon 2 MRI BRAIN WO CON Normal [facility] PHOSPHORUSon 03-09-2022 Phosphate [Mass/Vol] 3.5 mg/dL Normal 2.6-4.7 The [facility] Comment on above: Performed By: #### B BALE STACKER, PHOS, MG, CMP ####[facility] Xw[address]hnvmcn20[address] [place] [address]Dr. Ivette Hernandez PROF 14(COMP METB)on 022 Albumin [Mass/Vol] 2.3 g/dL Critically low 3.4-5.0 [facility] Comment on above: Performed By: #### B BALE STACKER, PHOS, MG, CMP ####[facility] Gwogndupnx[address] [place] [address]Dr. Ivette Hernandez Albumin/Globulin [Mass ratio] 0.6 {ratio} Normal [facility] Comment on above: Performed By: #### B BALE STACKER, PHOS, MG, CMP ####[facility] Pkivxsunqn[address] [place] [address]Dr. Ivette Hernandez ALP [Catalytic activity/Vol] 58 U/L Normal 46-116 [facility] Comment on above: Performed By: #### B BALE STACKER, PHOS, MG, CMP ####[facility] Thoekgyspu68[address] [place], [place] [address]Dr. Ivette Hernandez ALT [Catalytic activity/Vol] 13 U/L Critically low 14-59 [facility] Comment on above: Performed By: #### B BALE STACKER, PHOS, MG, CMP ####[facility] Tlxepdgvqq5767[address] [place], [place] [address]Dr. Ivette Hernandez Anion gap [Moles/Vol] 5.6 mmol/L Normal [facility] Comment on above: Performed By: #### B BALE STACKER, PHOS, MG, CMP ####[facility] Wioikfrmzv9[address] [place], [place] [address]Dr. Ivette Hernandez AST [Catalytic activity/Vol] 16 U/L Normal 15-37 [facility] Comment on above: Performed By: #### B BALE STACKER, PHOS, MG, CMP ####[facility] Rqxfisgdua93[address] [place], [place] [address]Dr. Ivette Hernandez Bilirubin [Mass/Vol] 0.4 mg/dL Normal 0.2-1.0 [facility] Comment on above: Performed By: #### B BALE STACKER, PHOS, MG, CMP ####[facility] Pptbakefgs[address] [place] [address]Dr. Ivette Hernandez Calcium [Mass/Vol] 7.9 mg/dL Critically low 8.5-10.1 Th e [facility] Comment on above: Performed By: #### B BALE STACKER, PHOS, MG, CMP ####[facility] Viunvttpoq7[address] [place] [address]Dr. Ivette Hernandez Chloride [Moles/Vol] 99 mmol/L Normal 98-107 [facility] Comment on above: Performed By: #### B BALE STACKER, PHOS, MG, CMP ####[facility] Epbasczjam04[address] [place] [address]Dr. Ivette Hernandez CO2 [Moles/Vol] 40.2 mmol/L Critically high 21.0-32.0 [facility] Comment on above: Performed By: #### B BALE STACKER, PHOS, MG, CMP ####[facility] Wdyvslgpla[address] [place], [place] [address]Dr. Ivette Hernandez Creatinine [Mass/Vol] 1.47 mg/dL Critically high 0.55-1.02 [facility] Comment on above: Performed By: #### B BALE STACKER, PHOS, MG, CMP ####[facility] Hqxczjwbxd740[address] [place], [place] [address]Dr. Ivette Hernandez EGFR-AF MALAWIAN 42 mL/min/1.73m2 Critically low >=60 [facility] Comment on above: Performed By: #### B BALE STACKER, PHOS, MG, CMP ####[facility] Zfvgmpuaoc1639[address] [place], [place] [address]Dr. Ivette Hernandez EGFR-NON AF MALAWIAN 35 mL/min/1.73m2 Critically low >=60 The [facility] Comment on above: Performed By: #### B BALE STACKER, PHOS, MG, CMP ####[facility] Ksmorquqco59[address] [place], [place] [address]Dr. Ivette Hernandez Globulin (S) [Mass/Vol] 4.0 g/dL Normal [facility] Comment on above: Performed By: #### B BALE STACKER, PHOS, MG, CMP ####[facility] Xftnrliyac[address] [place], [place] [address]Dr. Ivette Hernandez Glucose [Mass/Vol] 100 mg/dL Normal 74-106 [facility] Comment on above: Performed By: #### B BALE STACKER, PHOS, MG, CMP ####[facility] Iacbwkwvvk29[address] [place] [address]Dr. Ivette Hernandez Potassium [Moles/Vol] 3.8 mmol/L Normal 3.5-5.1 [facility] Comment on above: Performed By: #### B BALE STACKER, PHOS, MG, CMP ####[facility] Xhesntddqv6640 [place] [address]Dr. Ivette Hernandez Protein [Mass/Vol] 6.3 g/dL Critically low 6.4-8.2 Th [facility] Comment on above: Performed By: #### B BALE STACKER, PHOS, MG, CMP ####[facility] Ctxiftldkm0[address] [place] [address]Dr. Ivette Hernandez Sodium [Moles/Vol] 141 mmol/L Normal 136-145 [facility] Comment on above: Performed By: #### B BALE STACKER, PHOS, MG, CMP ####[facility] Ktlqpqztzp01[address] [place] [address]Dr. Ivette Hernandez Urea nitrogen [Mass/Vol] 19.0 mg/dL Critically high 7.0-18.0 [facility] Comment on above: Performed By: #### B BALE STACKER, PHOS, MG, CMP ####[facility] Fxowafauyp90[address] [place], [place] [address]Dr. Ivette Hernandez Urea nitrogen/Creatinine [Mass ratio] 12.9 mg/mg Normal [facility] Comment on above: Performed By: #### B BALE STACKER, PHOS, MG, CMP ####[facility] L[address]zokprvmv[address] [place] [address]Dr. Ivette Hernandez BNPon 03-08-2022 Natriuretic peptide B (Bld) [Mass/Vol] 33618.0 pg/mL Critically high <=900.0 [facility] Comment on above: Performed By: #### B BALE STACKER, CMP, HSTROPN ####[facility] Rfkvnjnnsa50[address] [place], [place] [address]Dr. Ivette Hernandez CBC AUTO DIFFon 03-08-2022 BASO # 0.0 103/ul Normal 0.0-0.1 [facility] Comment on above: Performed By: #### C BC ####[facility] Ahvmqvzjma[address] [place] [id number]. Ivette Hernandez BASO # 0.0 103/ul Normal 0.0-0.1 [facility] Comment on above: Performed By: #### C BC ####[facility] Aitjvxrvmc33[address] [place] [address]Dr. Ivette Hernandez Basophils/100 WBC (Bld) 0.4 % Normal 0.2-2.0 [facility] Comment on above: Performed By: #### C BC ####[facility] Kogzsgxhss27[address] [place], [place] [address]Dr. Ivette Hernandez Basophils/100 WBC (Bld) 0.4 % Normal 0.2-2.0 [facility] Comment on above: Performed By: #### C BC ####[facility] Tvhgdeazfw55[address] [place], [place] [address]Dr. Ivette Hernandez EO # 0.2 103/ul Normal 0.0-0.7 [facility] Comment on above: Performed By: #### C BC ####[facility] Yqzthefobk[address] [place], [place] [address]Dr. Ivette Hernandez EO # 0.3 103/ul Normal 0.0-0.7 [facility] Comment on above: Performed By: #### C BC ####[facility] Efhgrzdnqp6137[address] [place], [place] [address]Dr. Ivette Hernandez Eosinophils/100 WBC (Bld) 2.9 % Normal 0.9-7.0 [facility] Comment on above: Performed By: #### C BC ####[facility] Rcywinaiqw[address] [place], [place] [address]Dr. Yilan Hernandez Eosinophils/100 WBC (Bld) 2.5 % Normal 0.9-7.0 [facility] Comment on above: Performed By: #### C BC ####[facility] Hhhauiyikz58[address] [place] [id number]. Ivette Hernandez Erythrocyte distribution width (RBC) [Ratio] 14.2 % Normal 11.0-15.0 [facility] Comment on above: Performed By: #### C BC ####[facility] Wctainlwea[address] [place] [id number]. Ivette Hernandez Erythrocyte distribution width (RBC) [Ratio] 14.0 % Normal 11.0-15.0 [facility] Comment on above: Performed By: #### C BC ####[facility] Tulvqzyzec[address] [place], [place] [address]Dr. Ivette Hernandez Hematocrit (Bld) [Volume fraction] 27.7 % Critically low 36.0-48.0 [facility] Comment on above: Performed By: #### C BC ####[facility] Fdprmurmdk[address] [place], [place] [address]Dr. Ivette Hernandez Hematocrit (Bld) [Volume fraction] 29.7 % Critically low 36.0-48.0 [facility] Comment on above: Performed By: #### C BC ####[facility] Yxbhvvdjjt7[address] [place], [place] [address]Dr. Ivette Hernandez Hemoglobin (Bld) [Mass/Vol] 8.5 g/dL Critically low 12.0-16.0 [facility] Comment on above: Performed By: #### C BC ####[facility] [address]okxdfmxuc[address] [place], [place] [id number]. Ivette Hernandez Hemoglobin (Bld) [Mass/Vol] 9.2 g/dL Critically low 12.0-16.0 [facility] Comment on above: Performed By: #### C BC ####[facility] Zywqcxdzip7[address] [place], [place] [address]Dr. Ivette Hernandez IG # 0.04 10e3/ul Critically high 0.00-0.[address] [facility] Comment on above: Performed By: #### C BC ####[facility] Donszvaaex8[address] [place], [place] [address]Dr. Ivette Hernandez IG # 0.08 10e3/ul Critically high 0.00-0.[address] [facility] Comment on above: Performed By: #### C BC ####[facility] Hsrnznoanp23[address] [place] [id number]. Ivette Hernandez IG % 0.5 % Normal 0.0-0.5 [facility] Comment on above: Performed By: #### C BC ####[facility] Wowrfcyyyh5490 [place] [id number]. Ivette Hernandez IG % 0.8 % Critically high 0.0-0.5 [facility] Comment on above: Performed By: #### C BC ####[facility] Rkjpmslevi8[address] [place], [place] [address]Dr. Ivette Hernandez LYMPH # 2.1 103/ul Normal 1.2-3.8 [facility] Comment on above: Performed By: #### C BC ####[facility] Pjrgbiwdnl[address] [place], [place] [address]Dr. Ivette Hernandez LYMPH # 2.5 103/ul Normal 1.2-3.8 [facility] Comment on above: Performed By: #### C BC ####[facility] Hyxmuhelaw[address] [place], [place] [address]Dr. Ivette Hernandez Lymphocytes/100 WBC (Bld) 27.3 % Normal 20.5-60.0 [facility] Comment on above: Performed By: #### C BC ####[facility] Kdoovyjuan07[address] [place] [id number]. Ivette Hernandez Lymphocytes/100 WBC (Bld) 24.8 % Normal 20.5-60.0 [facility] Comment on above: Performed By: #### C BC ####[facility] [address]ztheblmep[address] [place], [place] [address]Dr. Ivette Hernandez MANUAL DIFF REQ NO Normal [facility] Comment on above: Performed By: #### C BC ####[facility] Bploknuygo8[address] [place], [place] [address]Dr. Ivette Hernandez MANUAL DIFF REQ NO Normal [facility] Comment on above: Performed By: #### C BC ####[facility] Wkfhgxkzey[address] [place], [place] [address]Dr. Ivette Hernandez MCH (RBC) [Entitic mass] 28.1 pg Normal 26.7-34.0 [facility] Comment on above: Performed By: #### C BC ####[facility] Yndmqoxkmp0235 [place] [address]Dr. Ivette Hernandez MCH (RBC) [Entitic mass] 28.5 pg Normal 26.7-34.0 The [facility] Comment on above: Performed By: #### C BC ####[facility] Aomfdzqsre9214 [place] [address]Dr. Ivette Hernandez MCHC (RBC) [Mass/Vol] 30.7 g/dL Normal 29.9-35.2 The [facility] Comment on above: Performed By: #### C BC ####[facility] Ljagppus[address] [place], [place] [address]Dr. Ivette Hernandez MCHC (RBC) [Mass/Vol] 31.0 g/dL Normal 29.9-35.2 The [facility] Comment on above: Performed By: #### C BC ####[facility] Esiwjwhdlg5512 [place] [address]Dr. Ivette Hernandez MCV (RBC) [Entitic vol] 91.4 fL Normal 81.0-99.0 The [facility] Comment on above: Performed By: #### C BC ####[facility] Xnbfyfwkqn9978 [place] [address]Dr. Ivette Hernandez MCV (RBC) [Entitic vol] 92.0 fL Normal 81.0-99.0 The [facility] Comment on above: Performed By: #### C BC ####[facility] Epfdqwpgli7918 [place] [address]Dr. Ivette Hernandez MONO # 0.5 103/ul Normal 0.3-0.8 The [facility] Comment on above: Performed By: #### C BC ####[facility] Sbfkomvhhy[address] [place], [place] [address]Dr. Ivette Hernandez MONO # 0.6 103/ul Normal 0.3-0.8 The [facility] Comment on above: Performed By: #### C BC ####[facility] Javngninsx2919 [place], [place] [address]Hn. Ivette Hernandez Monocytes/100 WBC (Bld) 6.1 % Normal 1.7-12.0 The [facility] Comment on above: Performed By: #### C BC ####[facility] Uhkjviwreh6534 [place], [place] [address]Dg. Ivette Henrandez Monocytes/100 WBC (Bld) 6.3 % Normal 1.7-12.0 The [facility] Comment on above: Performed By: #### C BC ####[facility] Ukizavnhaj8461 [place], [place] [address]Nn. Ivette Hernandez NEUT # 4.9 103/ul Normal 1.4-6.5 The [facility] Comment on above: Performed By: #### C BC ####[facility] Gypgauazqo6664 [place] [address]Dr. Ivette Hernandez NEUT # 6.6 103/ul Critically high 1.4-6.5 [facility] Comment on above: Performed By: #### C BC ####[facility] Yhnrxgzdku0845 [place] [address]Dr. Ivette Hernandez Neutrophils/100 WBC (Bld) 62.8 % Normal 43.0-75.0 The [facility] Comment on above: Performed By: #### C BC ####[facility] Mgguxgfixn8841 [place] [address]Dr. Ivette Hernandez Neutrophils/100 WBC (Bld) 65.2 % Normal 43.0-75.0 The [facility] Comment on above: Performed By: #### C BC ####[facility] Kxniwdmclz8929 [place] [address]Dr. Ivette Hernandez Platelet mean volume (Bld) [Entitic vol] 9.7 fL Normal 9.5-13.5 The [facility] Comment on above: Performed By: #### C BC ####[facility] Eizvrgstfr6446 [place] [address]Dr. Ivette Hernandez Platelet mean volume (Bld) [Entitic vol] 9.7 fL Normal 9.5-13.5 The [facility] Comment on above: Performed By: #### C BC ####[facility] Sdmhvtaevs0345 [place], [place] [address]Cb. Ivette Hernandez PLT 227 103/ul Normal 150-450 The [facility] Comment on above: Performed By: #### C BC ####[facility] Osdswsyhqb8929 [place], [place] [address]Sw. Ivette Hernandez PLT 328 103/ul Normal 150-450 [facility] Comment on above: Performed By: #### C BC ####[facility] Xyybwldhpi2553 [place], [place] [address]Nr. Ivette Hernandez RBC 3.03 106/ul Critically low 4.20-5.40 [facility] Comment on above: Performed By: #### C BC ####[facility] Ixecglogsx9827 [place], [place] [address]Is. Ivette Hernandez RBC 3.23 106/ul Critically low 4.20-5.40 [facility] Comment on above: Performed By: #### C BC ####[facility] Lyeaqjxsje3160 [place], [place] [address]Ip. Ivette Hernandez WBC 7.8 103/ul Normal 4.0-11.0 The [facility] Comment on above: Performed By: #### C BC ####[facility] Hxzcpxfewj8990 [place], [place] [address]Ch. Ivette Hernandez WBC 10.1 103/ul Normal 4.0-11.0 The [facility] Comment on above: Performed By: #### C BC ####[facility] Viikfssgom8514 [place], [place] [address]Bf. Ivette Hernandez CTA HEAD WO W CONon 03-08-20 CTA HEAD WO W CON Normal [facility] Covid-19 PCR ([facility])on SARS-CoV-2 (COVID-19) RNA MARRY+probe Ql (Unsp spec) Not detected Normal NOT DETECTED The [facility] Comment on above: Result Comment: When diagnostic [...] for this test is supported by the [employer] of Health and Human Service's declaration that [...] be used). Performed By: #### C VDTB ####[facility] Jdahabjwcx7063 [place] [address]Dr. Ivette Hernandez PROF 14(COMP METB)on 022 Albumin [Mass/Vol] 2.6 g/dL Critically low 3.4-5.0 Th [facility] Comment on above: Performed By: #### B BALE STACKER, CMP, HSTROPN ####[facility] Gojbagtscc7595 [place] [address]Dr. Ivette Hernandze Albumin/Globulin [Mass ratio] 0.6 {ratio} Normal [facility] Comment on above: Performed By: #### B BALE STACKER, CMP, HSTROPN ####[facility] Rqodkjjmah3412 [place] [address]Dr. Ivette Hernandez ALP [Catalytic activity/Vol] 68 U/L Normal 46-116 [facility] Comment on above: Performed By: #### B BALE STACKER, CMP, HSTROPN ####[facility] Pnbkwzaexk1960 [place] [address]Dr. Ivette Hernandez ALT [Catalytic activity/Vol] 16 U/L Normal 14-59 [facility] Comment on above: Performed By: #### B BALE STACKER, CMP, HSTROPN ####[facility] Pvfvhzqcdx4234 [place] [address]Dr. Ivette Hernandez Anion gap [Moles/Vol] 6.8 mmol/L Normal [facility] Comment on above: Performed By: #### B BALE STACKER, CMP, HSTROPN ####[facility] Hsxowhdyzb6918 [place] [address]Dr. Ivette Hernandez AST [Catalytic activity/Vol] 18 U/L Normal 15-37 The [facility] Comment on above: Performed By: #### B BALE STACKER, CMP, HSTROPN ####[facility] Ouzwenhdgu7031 [place] [address]Dr. Ivette Hernandez Bilirubin [Mass/Vol] 0.5 mg/dL Normal 0.2-1.0 [facility] Comment on above: Performed By: #### B BALE STACKER, CMP, HSTROPN ####[facility] Urgoovvppe5607 [place] [address]Dr. Ivette Hernandez Calcium [Mass/Vol] 8.2 mg/dL Critically low 8.5-10.1 Th e [facility] Comment on above: Performed By: #### B BALE STACKER, CMP, HSTROPN ####[facility] Ypwusokvgt[address] [place], [place] [address]Dr. Ivette Hernandez Chloride [Moles/Vol] 97 mmol/L Critically low 98-107 The [facility] Comment on above: Performed By: #### B BALE STACKER, CMP, HSTROPN ####[facility] Gkatetfaxq[address] [place], [place] [address]Dr. Ivette Hernandez CO2 [Moles/Vol] 37.9 mmol/L Critically high 21.0-32.0 The [facility] Comment on above: Performed By: #### B BALE STACKER, CMP, HSTROPN ####[facility] Jjkuovolli[address] [place], [place] [address]Dr. Ivette Hernandez Creatinine [Mass/Vol] 1.65 mg/dL Critically high 0.55-1.02 [facility] Comment on above: Performed By: #### B BALE STACKER, CMP, HSTROPN ####[facility] Hycphnaozs3235 [place] [address]Dr. Ivette Hernandez EGFR-AF MALAWIAN 37 mL/min/1.73m2 Critically low >=60 The [facility] Comment on above: Performed By: #### B BALE STACKER, CMP, HSTROPN ####[facility] Klixkqyxbq2159 [place] [address]Dr. Ivette Hernandez EGFR-NON AF MALAWIAN 30 mL/min/1.73m2 Critically low >=60 The [facility] Comment on above: Performed By: #### B BALE STACKER, CMP, HSTROPN ####[facility] Idiapmblqp2913 [place] [address]Dr. Ivette Hernandez Globulin (S) [Mass/Vol] 4.7 g/dL Normal [facility] Comment on above: Performed By: #### B BALE STACKER, CMP, HSTROPN ####[facility] Yqainuycwz8120 [place] [address]Dr. Ivette Hernandez Glucose [Mass/Vol] 203 mg/dL Critically high 74-106 T [facility] Comment on above: Performed By: #### B BALE STACKER, CMP, HSTROPN ####[facility] Xxiypyrjbv1267 [place] [address]Dr. Ivette Hernandez Potassium [Moles/Vol] 3.7 mmol/L Normal 3.5-5.1 The [facility] Comment on above: Performed By: #### B BALE STACKER, CMP, HSTROPN ####[facility] Cjckkktjql9859 [place] [address]Dr. Ivette Hernandez Protein [Mass/Vol] 7.3 g/dL Normal 6.4-8.2 The [facility] Comment on above: Performed By: #### B BALE STACKER, CMP, HSTROPN ####[facility] Jtlzzuwqzd5456 [place] [address]Dr. Ivette Hernandez Sodium [Moles/Vol] 138 mmol/L Normal 136-145 The [facility] Comment on above: Performed By: #### B BALE STACKER, CMP, HSTROPN ####[facility] Apsmbznqzc2245 [place] [address]Dr. Ivette Hernandez Urea nitrogen [Mass/Vol] 22.0 mg/dL Critically high 7.0-18.0 [facility] Comment on above: Performed By: #### B BALE STACKER, CMP, HSTROPN ####[facility] Dfflozflfp4925 [place] [address]Dr. Ivette Hernandez Urea nitrogen/Creatinine [Mass ratio] 13.3 mg/mg Normal [facility] Comment on above: Performed By: #### B BALE STACKER, CMP, HSTROPN ####[facility] Zqicyhdwym5325 [place] [address]Dr. Ivette Hernandez PROF CHEM 8 (BAS METB)on Anion gap [Moles/Vol] 6.0 mmol/L Normal [facility] Comment on above: Performed By: #### B MP ####[facility] Cvfxxvpgix2313 [place] [address]Dr. Ivette Hernandez Calcium [Mass/Vol] 8.0 mg/dL Critically low 8.5-10.1 e [facility] Comment on above: Performed By: #### B MP ####[facility] Zjvwlqpclx[address] [place], [place] [address]Dr. Ivette Hernandez Chloride [Moles/Vol] 98 mmol/L Normal 98-107 [facility] Comment on above: Performed By: #### B MP ####[facility] Pbodxnqnpp9412 [place] [address]Dr. Ivette Hernandez CO2 [Moles/Vol] 39.9 mmol/L Critically high 21.0-32.0 [facility] Comment on above: Performed By: #### B MP ####[facility] Bovppgpikx1623 [place] [address]Dr. Ivette Hernandez Creatinine [Mass/Vol] 1.56 mg/dL Critically high 0.55-1.02 [facility] Comment on above: Performed By: #### B MP ####[facility] Klfrbxxlui2284 [place] [address]Dr. Ivette Hernandez EGFR-AF MALAWIAN 39 mL/min/1.73m2 Critically low >=60 [facility] Comment on above: Performed By: #### B MP ####[facility] Zpwbrgsdny9701 [place] [address]Dr. Ivette Hernandez EGFR-NON AF MALAWIAN 33 mL/min/1.73m2 Critically low >=60 [facility] Comment on above: Performed By: #### B MP ####[facility] Xslundjdny8569 [place] [address]Dr. Ivette Hernandez Glucose [Mass/Vol] 143 mg/dL Critically high 74-106 [facility] Comment on above: Performed By: #### B MP ####[facility] Nrkfbnchep8310 [place] [address]Dr. Ivette Hernandez Potassium [Moles/Vol] 3.9 mmol/L Normal 3.5-5.1 [facility] Comment on above: Performed By: #### B MP ####[facility] Qswqkpooop2804 [place] [address]Dr. Ivette Hernandez Sodium [Moles/Vol] 140 mmol/L Normal 136-145 [facility] Comment on above: Performed By: #### B MP ####[facility] Zdmcsdfmzq6994 [place] [address]Dr. Ivette Hernandez Urea nitrogen [Mass/Vol] 23.0 mg/dL Critically high 7.0-18.0 [facility] Comment on above: Performed By: #### B MP ####[facility] Wvrqpnfeav80[address] [place], [place] [address]Dr. Ivette Hernandez Urea nitrogen/Creatinine [Mass ratio] 14.7 mg/mg Normal [facility] Comment on above: Performed By: #### B MP ####[facility] Nrhmsiakfp3650 [place] [address]Dr. Ivette Hernandez PROTIMEon 03-08-2022 INR Coag (PPP) [Relative time] 1.11 {INR} Normal [facility] Comment on above: Performed By: #### P T, PTT ####[facility] Dnxafshynd8915 [place] [address]Dr. Ivette Hernandez INR GUIDELINES SEE BELOW Normal [facility] Comment on above: Result Comment: MELANIE RED INR: 2.0 - 3.0 CONDITIONS NOT LISTED BELOW 2.5 - 3.5 FOR PROSTHETIC HEART VALVE REPLACEMENT 2.5 - 3.5 RECURRENT THROMBOSIS Performed By: #### P T, PTT ####[facility] Kxzlvcotki1168 [place] [address]Dr. Ivette David PT Coag (PPP) [Time] 11.9 s Critically high 9.0-11.6 [facility] Comment on above: Performed By: #### P T, PTT ####[facility] Uusamqhilw3984 [place] [address]Dr. Ivette Hernandez PTTon 03-08-2022 aPTT Coag (Bld) [Time] 29.0 s Normal 22.3-36.2 Th [facility] Comment on above: Performed By: #### P T, PTT ####[facility] Ltyzblrtsx[address] [place], [place] [address]Dr. Ivette Hernandez TROPONIN, HIGH SENSITIVITYon 03-08-2022 HSTROP 74.2 pg/mL Critically high 4.0-51.3 [facility] Comment on above: Result Comment: CUT- OFF POINTS HAVE BEEN ESTABLISHED BASED ON THE FOURTH UNIVERSAL DEFINITIONS OF MYOCARDIALINFARCTION. THE UPPER REFERENCE LIMIT (URL) OF TROPONIN, DEFINED THE 99TH PERCENTILE OFcTnI DISTRIBUTION IN A REFERENCE POPULATION, HAS BEEN CONFIRMED THE DECISION THRESHOLDFOR IA DIAGNOSIS. Performed By: #### B BALE STACKER, CMP, HSTROPN ####[facility] Tvalewvqsq56[address] [place], [place] [address]Dr. Ivetet David XR CHEST 1 Von 03-08-2022 XR CHEST 1 V Normal [facility] CBC AUTO DIFFon 03-07-2022 BASO # 0.0 103/ul Normal 0.0-0.1 [facility] Comment on above: Performed By: #### C BC ####[facility] Gbhtuxupqu0[address] [place], [place] [address]Dr. Cherjun Hernandez Basophils/100 WBC (Bld) 0.5 % Normal 0.2-2.0 [facility] Comment on above: Performed By: #### C BC ####[facility] Bkujfskpco79[address] [place], [place] [address]Dr. Ivette Hernandez EO # 0.3 103/ul Normal 0.0-0.7 [facility] Comment on above: Performed By: #### C BC ####[facility] Bohyirgrcp5619 [place] [address]Dr. Ivette Hernandez Eosinophils/100 WBC (Bld) 3.9 % Normal 0.9-7.0 [facility] Comment on above: Performed By: #### C BC ####[facility] Smraqjcazv[address] [place], [place] [address]Dr. Ivette Hernandez Erythrocyte distribution width (RBC) [Ratio] 14.1 % Normal 11.0-15.0 [facility] Comment on above: Performed By: #### C BC ####[facility] Jzirxbbvuc[address] [place], [place] [address]Dr. Ivette Hernandez Hematocrit (Bld) [Volume fraction] 26.9 % Critically low 36.0-48.0 [facility] Comment on above: Performed By: #### C BC ####[facility] Pnajnlfivd79[address] [place], [place] [address]Dr. Ivette Hernandez Hemoglobin (Bld) [Mass/Vol] 8.1 g/dL Critically low 12.0-16.0 [facility] Comment on above: Performed By: #### C BC ####[facility] Nzvgfcytne[address] [place], [place] [address]Dr. Ivette Hernandez IG # 0.06 10e3/ul Critically high 0.00-0.03 [facility] Comment on above: Performed By: #### C BC ####[facility] Qzfkywzsws3866 [place] [address]Dr. Ivette Hernandez IG % 0.8 % Critically high 0.0-0.5 [facility] Comment on above: Performed By: #### C BC ####[facility] Trwahrcmny57[address] [place], [place] [address]Dr. Ivette Hernandez LYMPH # 1.7 103/ul Normal 1.2-3.8 [facility] Comment on above: Performed By: #### C BC ####[facility] Alpeirdmih9[address] [place], [place] [address]Dr. Ivette Hernandez Lymphocytes/100 WBC (Bld) 21.9 % Normal 20.5-60.0 [facility] Comment on above: Performed By: #### C BC ####[facility] Hokkwytxkp7419 [place] [address]Dr. Ivette Hernandez MANUAL DIFF REQ NO Normal [facility] Comment on above: Performed By: #### C BC ####[facility] Ieqnnoanoa6410 [place] [address]Dr. Ivette Hernandez MCH (RBC) [Entitic mass] 28.2 pg Normal 26.7-34.0 [facility] Comment on above: Performed By: #### C BC ####[facility] Kixysdtylk5020 [place] [address]Dr. Ivette Hernandez MCHC (RBC) [Mass/Vol] 30.1 g/dL Normal 29.9-35.2 [facility] Comment on above: Performed By: #### C BC ####[facility] Ozrfvfkwzw3108 [place] [address]Dr. Ivette David MCV (RBC) [Entitic vol] 93.7 fL Normal 81.0-99.0 [facility] Comment on above: Performed By: #### C BC ####[facility] Vlzwavllhp5326 [place] [address]Dr. Ivette David MONO # 0.5 103/ul Normal 0.3-0.8 [facility] Comment on above: Performed By: #### C BC ####[facility] Ocbikqflyd99[address] [place], [place] [address]Dr. Cherjun Hernandez Monocytes/100 WBC (Bld) 6.5 % Normal 1.7-12.0 [facility] Comment on above: Performed By: #### C BC ####[facility] Vnqkhsewaj1174 [place] [id number]. Ivette Hernandez NEUT # 5.3 103/ul Normal 1.4-6.5 [facility] Comment on above: Performed By: #### C BC ####[facility] Hpceioveuh66[address] [place], [place] [address]Dr. Cherjun Hernandez Neutrophils/100 WBC (Bld) 66.4 % Normal 43.0-75.0 [facility] Comment on above: Performed By: #### C BC ####[facility] Bydmsebbue8280 [place] [id number]. Ivette David Platelet mean volume (Bld) [Entitic vol] 9.9 fL Normal 9.5-13.5 [facility] Comment on above: Performed By: #### C BC ####[facility] Djntojhscu9631 [place] [address]Dr. Ivette Hernandez PLT 229 103/ul Normal 150-450 [facility] Comment on above: Performed By: #### C BC ####[facility] Mjinynbvqg1204 [place] [address]Dr. Ivette Hernandez RBC 2.87 106/ul Critically low 4.20-5.40 [facility] Comment on above: Performed By: #### C BC ####[facility] Vlshwropfh2218 [place] [address]Dr. Ivette Hernandez WBC 7.9 103/ul Normal 4.0-11.0 [facility] Comment on above: Performed By: #### C BC ####[facility] Xwhnwhokuw9176 [place] [address]Dr. Ivette Hernandez PROF CHEM 8 (BAS METB)on Anion gap [Moles/Vol] 2.9 mmol/L Normal [facility] Comment on above: Performed By: #### B MP ####[facility] Iqgsyelaxa9483 [place] [address]Dr. Ivette Hernandez Calcium [Mass/Vol] 7.5 mg/dL Critically low 8.5-10.1 [facility] Comment on above: Performed By: #### B MP ####[facility] Ierwhrodem4406 [place] [address]Dr. Ivette Hernandez Chloride [Moles/Vol] 102 mmol/L Normal 98-107 [facility] Comment on above: Performed By: #### B MP ####[facility] Ieqncvlbkh3307 [place] [address]Dr. Ivette Hernandez CO2 [Moles/Vol] 41.1 mmol/L Critically high 21.0-32.0 [facility] Comment on above: Performed By: #### B MP ####[facility] Ioanwxfwdq0211 [place] [address]Dr. Ivette Hernandez Creatinine [Mass/Vol] 1.58 mg/dL Critically high 0.55-1.02 [facility] Comment on above: Performed By: #### B MP ####[facility] Nzqhrjopqp6774 [place] [address]Dr. Ivette Hernandez EGFR-AF MALAWIAN 39 mL/min/1.73m2 Critically low >=60 [facility] Comment on above: Performed By: #### B MP ####[facility] Mujtlrbtct5201 [place] [address]Dr. Ivette Hernandez EGFR-NON AF MALAWIAN 32 mL/min/1.73m2 Critically low >=60 [facility] Comment on above: Performed By: #### B MP ####[facility] Xirhfgmbjc46[address] [place], [place] [address]Dr. Ivette Hernandez Glucose [Mass/Vol] 115 mg/dL Critically high 74-106 [facility] Comment on above: Performed By: #### B MP ####[facility] Hgwfxgwhrp34[address] [place], [place] [address]Dr. Ivette Hernandez Potassium [Moles/Vol] 4.0 mmol/L Normal 3.5-5.1 [facility] Comment on above: Performed By: #### B MP ####[facility] Jugvieobxt46[address] [place], [place] [address]Dr. Ivette Hernandez Sodium [Moles/Vol] 142 mmol/L Normal 136-145 [facility] Comment on above: Performed By: #### B MP ####[facility] Ospdgszfyk[address] [place], [place] [address]Dr. Ivette Hernandez Urea nitrogen [Mass/Vol] 23.0 mg/dL Critically high 7.0-18.0 [facility] Comment on above: Performed By: #### B MP ####[facility] Qxtrgkncfc[address] [place], [place] [address]Dr. Ivette Hernandez Urea nitrogen/Creatinine [Mass ratio] 14.6 mg/mg Normal [facility] Comment on above: Performed By: #### B MP ####[facility] Nrxhzqndem76[address] [place] [id number]. Ivette Hernandez CBC AUTO DIFFon 03-06-2022 BASO # 0.0 103/ul Normal 0.0-0.1 [facility] Comment on above: Performed By: #### C BC ####[facility] Xvglrzavrv[address] [place] [address]Dr. Ivette David Basophils/100 WBC (Bld) 0.3 % Normal 0.2-2.0 [facility] Comment on above: Performed By: #### C BC ####[facility] Syojbkndcy44[address] [place], [place] [address]Dr. Ivette Hernandez EO # 0.2 103/ul Normal 0.0-0.7 [facility] Comment on above: Performed By: #### C BC ####[facility] Nhrlydyffz6[address] [place], [place] [address]Dr. Ivette David Eosinophils/100 WBC (Bld) 2.4 % Normal 0.9-7.0 [facility] Comment on above: Performed By: #### C BC ####[facility] Fknmqbmebj[address] [place], [place] [address]Dr. Ivette Hernandez Erythrocyte distribution width (RBC) [Ratio] 14.3 % Normal 11.0-15.0 [facility] Comment on above: Performed By: #### C BC ####[facility] Iwwcaviymv6[address] [place], [place] [address]Dr. Ivette Hernandez Hematocrit (Bld) [Volume fraction] 27.2 % Critically low 36.0-48.0 [facility] Comment on above: Performed By: #### C BC ####[facility] Jdzpldjlvw9[address] [place], [place] [address]Dr. Ivette Hernandez Hemoglobin (Bld) [Mass/Vol] 7.8 g/dL Critically low 12.0-16.0 [facility] Comment on above: Performed By: #### C BC ####[facility] Onnewoijyl[address] [place], [place] [address]Dr. Ivette Hernandez IG # 0.07 10e3/ul Critically high 0.00-0.03 [facility] Comment on above: Performed By: #### C BC ####[facility] Tuddjkwygy[address] [place] [id number] Cherjun Hernandez IG % 0.8 % Critically high 0.0-0.5 [facility] Comment on above: Performed By: #### C BC ####[facility] Solpzxniwz75[address] [place] [id number] Ivette David LYMPH # 1.8 103/ul Normal 1.2-3.8 [facility] Comment on above: Performed By: #### C BC ####[facility] Pqcgvhpplq8096 [place] [id number] Cherjun Hernandez Lymphocytes/100 WBC (Bld) 21.2 % Normal 20.5-60.0 [facility] Comment on above: Performed By: #### C BC ####[facility] Adxzdbdwbo75[address] [place] [address]DrJesse Cherjun Hernandez MANUAL DIFF REQ NO Normal [facility] Comment on above: Performed By: #### C BC ####[facility] Svpvejknak9176 [place] [id number] Ivette David MCH (RBC) [Entitic mass] 27.6 pg Normal 26.7-34.0 [facility] Comment on above: Performed By: #### C BC ####[facility] Tcrfaeyaxj7596 [place] [id number] Ivette David MCHC (RBC) [Mass/Vol] 28.7 g/dL Critically low 29.9-35.2 [facility] Comment on above: Performed By: #### C BC ####[facility] Evuqrpsuvu0937 [place] [id number] Ivette aDvid MCV (RBC) [Entitic vol] 96.1 fL Normal 81.0-99.0 [facility] Comment on above: Performed By: #### C BC ####[facility] Mdgiigjrsx6658 [place] [id number] Hernandez MONO # 0.6 103/ul Normal 0.3-0.8 [facility] Comment on above: Performed By: #### C BC ####[facility] Qmtzqllpfm3115 [place] [id number]. Ivette Hernandez Monocytes/100 WBC (Bld) 6.8 % Normal 1.7-12.0 [facility] Comment on above: Performed By: #### C BC ####[facility] Dozsdjwmah2971 [place] [id number]. Ivette Hernandez NEUT # 5.9 103/ul Normal 1.4-6.5 [facility] Comment on above: Performed By: #### C BC ####[facility] Dqtqzrhpfl6944 [place] [id number]. Ivette Hernandez Neutrophils/100 WBC (Bld) 68.5 % Normal 43.0-75.0 [facility] Comment on above: Performed By: #### C BC ####[facility] Pfjoiegwbd3666 [place] [address]Dr. Ivette Hernandez Platelet mean volume (Bld) [Entitic vol] 9.9 fL Normal 9.5-13.5 [facility] Comment on above: Performed By: #### C BC ####[facility] Ebrudhclik6[address] [place] [address]Dr. Ivette Hernandez PLT 193 103/ul Normal 150-450 [facility] Comment on above: Performed By: #### C BC ####[facility] Iurklgyirh7125 [place] [id number]. Ivette Hernandez RBC 2.83 106/ul Critically low 4.20-5.40 [facility] Comment on above: Performed By: #### C BC ####[facility] Zthodtzmnq2381 [place] [id number]. Ivette Hernandez WBC 8.7 103/ul Normal 4.0-11.0 [facility] Comment on above: Performed By: #### C BC ####[facility] Pqgaoxsjgi1264 [place] [id number] Ivette Hernandez PROF CHEM 8 (BAS METB)on Anion gap [Moles/Vol] 2.7 mmol/L Normal [facility] Comment on above: Performed By: #### B MP ####[facility] Ukersjuxrd2181 [place] [address]Dr. Ivette Hernandez Calcium [Mass/Vol] 7.6 mg/dL Critically low 8.5-10.1 [facility] Comment on above: Performed By: #### B MP ####[facility] Urninrznvd15[address] [place] [address]Dr. Cherjun David Chloride [Moles/Vol] 103 mmol/L Normal 98-107 [facility] Comment on above: Performed By: #### B MP ####[facility] Nsdckjmroi8[address] [place], [place] [address]Dr. Cherjun David CO2 [Moles/Vol] 41.1 mmol/L Critically high 21.0-32.0 [facility] Comment on above: Performed By: #### B MP ####[facility] Orgfewbzpf6491[address] [place], [place] [address]Dr. Cherjun David Creatinine [Mass/Vol] 1.61 mg/dL Critically high 0.55-1.02 [facility] Comment on above: Performed By: #### B MP ####[facility] Bgbphqchzd[address] [place], [place] [address]Dr. Cherjun David EGFR-AF MALAWIAN 38 mL/min/1.73m2 Critically low >=60 [facility] Comment on above: Performed By: #### B MP ####[facility] Goxmvvpsks[address] [place], [place] [address]Dr. Cherjun David EGFR-NON AF MALAWIAN 31 mL/min/1.73m2 Critically low >=60 [facility] Comment on above: Performed By: #### B MP ####[facility] Ykobgryveb9308[address] [place], [place] [address]Dr. Ivette Hernandez Glucose [Mass/Vol] 124 mg/dL Critically high 74-106 [facility] Comment on above: Performed By: #### B MP ####[facility] Slmkoijepe0747[address] [place], [place] [address]Dr. Ivette Hernandez Potassium [Moles/Vol] 3.8 mmol/L Normal 3.5-5.1 [facility] Comment on above: Performed By: #### B MP ####[facility] Mbkgxxoorj206[address] [place], [place] [address]Dr. Ivette Hernandez Sodium [Moles/Vol] 143 mmol/L Normal 136-145 [facility] Comment on above: Performed By: #### B MP ####[facility] Aemzkdrpve9[address] [place], [place] [address]Dr. Cherjun Hernandez Urea nitrogen [Mass/Vol] 26.0 mg/dL Critically high 7.0-18.0 [facility] Comment on above: Performed By: #### B MP ####[facility] Vohuxzwlzo[address] [place], [place] [address]Dr. Ivette Hernandez Urea nitrogen/Creatinine [Mass ratio] 16.1 mg/mg Normal [facility] Comment on above: Performed By: #### B MP ####[facility] Pwbslyjbpb0311[address] [place], [place] [address]Dr. Ivette David BNPon 03-05-2022 Natriuretic peptide B (Bld) [Mass/Vol] 73900.0 pg/mL Critically high <=900.0 [facility] Comment on above: Performed By: #### H STROPN, BNP, CMP ####[facility] Etolgyhznx5114[address] [place], [place] [address]Dr. Ivette David CBC AUTO DIFFon 03-05-2022 BASO # 0.0 103/ul Normal 0.0-0.1 [facility] Comment on above: Performed By: #### C BC ####[facility] Rlqpqjprdz4[address] [place], [place] [address]Dr. Cherjun Hernandez Basophils/100 WBC (Bld) 0.4 % Normal 0.2-2.0 [facility] Comment on above: Performed By: #### C BC ####[facility] Zrpnyoxzpj9376[address] [place], [place] [address]Dr. Ivette Hernandez EO # 0.4 103/ul Normal 0.0-0.7 [facility] Comment on above: Performed By: #### C BC ####[facility] Cynvjvuspo8786 [place] [address]Dr. Ivette Hernandez Eosinophils/100 WBC (Bld) 3.1 % Normal 0.9-7.0 [facility] Comment on above: Performed By: #### C BC ####[facility] Hadytppedc2926 [place] [address]Dr. Ivette Hernandez Erythrocyte distribution width (RBC) [Ratio] 14.5 % Normal 11.0-15.0 [facility] Comment on above: Performed By: #### C BC ####[facility] Pyoxdbkwdg4486[address] [place], [place] [address]Dr. Ivette Hernandez Hematocrit (Bld) [Volume fraction] 25.3 % Critically low 36.0-48.0 [facility] Comment on above: Performed By: #### C BC ####[facility] Ahrjheyism0833[address] [place], [place] [address]Dr. Ivette Hernandez Hemoglobin (Bld) [Mass/Vol] 7.5 g/dL Critically low 12.0-16.0 [facility] Comment on above: Performed By: #### C BC ####[facility] Jccbbmkdrm[address] [place], [place] [address]Dr. Ivette Hernandez IG # 0.08 10e3/ul Critically high 0.00-0.03 [facility] Comment on above: Performed By: #### C BC ####[facility] Zxvqchurdk7[address] [place] [address]Dr. Ivette Hernandez IG % 0.7 % Critically high 0.0-0.5 [facility] Comment on above: Performed By: #### C BC ####[facility] Wwagvutxsz4374[address] [place], [place] [address]Dr. Ivette Hernandez LYMPH # 1.7 103/ul Normal 1.2-3.8 [facility] Comment on above: Performed By: #### C BC ####[facility] Mkthvkkpup86[address] [place], [place] [address]Dr. Ivette Hernandez Lymphocytes/100 WBC (Bld) 14.7 % Critically low 20.5-60.0 [facility] Comment on above: Performed By: #### C BC ####[facility] Wgiarwamac4453 [place] [id number]. Ivette Hernandez MANUAL DIFF REQ NO Normal [facility] Comment on above: Performed By: #### C BC ####[facility] Jkibdlzuef1524 [place] [id number]. Ivette Hernandez MCH (RBC) [Entitic mass] 27.9 pg Normal 26.7-34.0 [facility] Comment on above: Performed By: #### C BC ####[facility] Sqtoigvily9267[address] [place], [place] [address]Dr. Ivette Hernandez MCHC (RBC) [Mass/Vol] 29.6 g/dL Critically low 29.9-35.2 [facility] Comment on above: Performed By: #### C BC ####[facility] Oglcbqztbq24[address] [place], [place] [address]Dr. Ivette David MCV (RBC) [Entitic vol] 94.1 fL Normal 81.0-99.0 [facility] Comment on above: Performed By: #### C BC ####[facility] Jbaqxavagb4411 [place] [address]Dr. Ivette Hernandez MONO # 0.9 103/ul Critically high 0.3-0.8 [facility] Comment on above: Performed By: #### C BC ####[facility] Holbummdqx6961 [place] [address]Dr. Ivette Hernandez Monocytes/100 WBC (Bld) 7.7 % Normal 1.7-12.0 [facility] Comment on above: Performed By: #### C BC ####[facility] Uopxaqedak89[address] [place], [place] [address]Dr. Cherjun Hernandez NEUT # 8.3 103/ul Critically high 1.4-6.5 [facility] Comment on above: Performed By: #### C BC ####[facility] Dbubsrplhf564[address] [place], [place] [address]Dr. Ivette Hernandez Neutrophils/100 WBC (Bld) 73.4 % Normal 43.0-75.0 [facility] Comment on above: Performed By: #### C BC ####[facility] Jmmgzfbcwa3621 [place], [place] [address]Xp. Ivette Hernandez Platelet mean volume (Bld) [Entitic vol] 9.8 fL Normal 9.5-13.5 [facility] Comment on above: Performed By: #### C BC ####[facility] Qlyivhxbxy8304 [place], [place] [address]Tq. Ivette Hernandez PLT 256 103/ul Normal 150-450 [facility] Comment on above: Performed By: #### C BC ####[facility] Wpvfwfnysj9503 [place], [place] [address]Eo. Ivette Hernandez RBC 2.69 106/ul Critically low 4.20-5.40 [facility] Comment on above: Performed By: #### C BC ####[facility] Sqjnlhzkur3101 [place], [place] [address]Za. Ivette Hernandez WBC 11.3 103/ul Critically high 4.0-11.0 [facility] Comment on above: Performed By: #### C BC ####[facility] Lguchsbezp7156 [place], [place] [address]Sg. Ivette Hernandez [facility]on SARS-CoV-2 (COVID-19) RNA MARRY+probe Ql (Unsp spec) Not detected Normal NOT DETECTED [facility] Comment on above: Result Comment: When diagnostic [...] for this test is supported by the [place] of Health and Human Service's declaration that [...] be used). Performed By: #### C VDTBH ####[facility] Litpkazqag8[address] [place] [address]Dr. Ivette Hernandez LACTATE/LACTIC ACIDon 2021 Lactate [Moles/Vol] 0.6 mmol/L Normal 0.4-1.9 [facility] Comment on above: Performed By: #### L ACT ####[facility] Rhgvmnurwj38[address] [place], [place] [address]Dr. Ivette Hernandez PROF 14(COMP METB)on 022 Albumin [Mass/Vol] 2.3 g/dL Critically low 3.4-5.0 [facility] Comment on above: Performed By: #### H STROPN, BNP, CMP ####[facility] Cxssjblvqg8[address] [place], [place] [address]Dr. Ivette Hernandez Albumin/Globulin [Mass ratio] 0.5 {ratio} Normal [facility] Comment on above: Performed By: #### H STROPN, BNP, CMP ####[facility] Rjkewpsmhj5[address] [place], [place] [address]Dr. Ivette Hernandez ALP [Catalytic activity/Vol] 72 U/L Normal 46-116 [facility] Comment on above: Performed By: #### H STROPN, BNP, CMP ####[facility] Jclicvrdmc4204 [place] [address]Dr. Ivette Hernandez ALT [Catalytic activity/Vol] 15 U/L Normal 14-59 [facility] Comment on above: Performed By: #### H STROPN, BNP, CMP ####[facility] Lqgcpihvbd5578 [place] [address]Dr. Ivette Hernandez Anion gap [Moles/Vol] 5.3 mmol/L Normal [facility] Comment on above: Performed By: #### H STROPN, BNP, CMP ####[facility] Kvnbxiknhm2623 [place] [address]Dr. Ivette Hernandez AST [Catalytic activity/Vol] 16 U/L Normal 15-37 [facility] Comment on above: Performed By: #### H STROPN, BNP, CMP ####[facility] Xnjknrbuiy4960 [place] [address]Dr. Ivette Hernandez Bilirubin [Mass/Vol] 0.5 mg/dL Normal 0.2-1.0 [facility] Comment on above: Performed By: #### H STROPN, BNP, CMP ####[facility] Awelpqzzbg5[address] [place], [place] [address]Dr. Ivette Hernandez Calcium [Mass/Vol] 7.8 mg/dL Critically low 8.5-10.1 [facility] Comment on above: Performed By: #### H STROPN, BNP, CMP ####[facility] Xicwoedaei17[address] [place], [place] [address]Dr. Ivette Hernandez Chloride [Moles/Vol] 102 mmol/L Normal 98-107 [facility] Comment on above: Performed By: #### H STROPN, BNP, CMP ####[facility] Gujobnvgcg6899[address] [place], [place] [address]Dr. Ivette Hernandez CO2 [Moles/Vol] 38.3 mmol/L Critically high 21.0-32.0 [facility] Comment on above: Performed By: #### H STROPN, BNP, CMP ####[facility] Kfviuiclej7[address] [place], [place] [address]Dr. Ivette Hernandez Creatinine [Mass/Vol] 1.50 mg/dL Critically high 0.55-1.02 [facility] Comment on above: Performed By: #### H STROPN, BNP, CMP ####[facility] Qnoimyushr6377[address] [place], [place] [address]Dr. Ivette Hernandez EGFR-AF MALAWIAN 41 mL/min/1.73m2 Critically low >=60 [facility] Comment on above: Performed By: #### H STROPN, BNP, CMP ####[facility] Zwnfsobtgy217[address] [place], [place] [address]Dr. Ivette Hernandez EGFR-NON AF MALAWIAN 34 mL/min/1.73m2 Critically low >=60 [facility] Comment on above: Performed By: #### H STROPN, BNP, CMP ####[facility] Tdbsyxpcuc1292 [place] [address]Dr. Ivette Hernandez Globulin (S) [Mass/Vol] 4.3 g/dL Normal [facility] Comment on above: Performed By: #### H STROPN, BNP, CMP ####[facility] Krmwphvffz9[address] [place] [address]Dr. Ivette Hernandez Glucose [Mass/Vol] 138 mg/dL Critically high 74-106 [facility] Comment on above: Performed By: #### H STROPN, BNP, CMP ####[facility] Ckpmgeyion79[address] [place] [address]Dr. Ivette Hernandez Potassium [Moles/Vol] 3.6 mmol/L Normal 3.5-5.1 [facility] Comment on above: Performed By: #### H STROPN, BNP, CMP ####[facility] Ruglavjpzh11[address] [place], [place] [address]Dr. Ivette Hernandez Protein [Mass/Vol] 6.6 g/dL Normal 6.4-8.2 [facility] Comment on above: Performed By: #### H STROPN, BNP, CMP ####[facility] Wnheiovshr3[address] [place], [place] [address]Dr. Ivette Hernandez Sodium [Moles/Vol] 142 mmol/L Normal 136-145 [facility] Comment on above: Performed By: #### H STROPN, BNP, CMP ####[facility] Emkebgudcy4568 [place] [address]Dr. Ivette Hernandez Urea nitrogen [Mass/Vol] 24.0 mg/dL Critically high 7.0-18.0 [facility] Comment on above: Performed By: #### H STROPN, BNP, CMP ####[facility] Vddhrkvtbv3580 [place] [address]Dr. Ivette Hernandez Urea nitrogen/Creatinine [Mass ratio] 16.0 mg/mg Normal [facility] Comment on above: Performed By: #### H STROPN, BNP, CMP ####[facility] Igllkucsvn6187 [place] [address]Dr. Ivetet Hernandez TROPONIN, HIGH SENSITIVITYon 03-05-2022 HSTROP 18.0 pg/mL Normal 4.0-51.3 [facility] Comment on above: Result Comment: CUT- OFF POINTS HAVE BEEN ESTABLISHED BASED ON THE FOURTH UNIVERSAL DEFINITIONS OF MYOCARDIALINFARCTION. THE UPPER REFERENCE LIMIT (URL) OF TROPONIN, DEFINED THE 99TH PERCENTILE OFcTnI DISTRIBUTION IN A REFERENCE POPULATION, HAS BEEN CONFIRMED THE DECISION THRESHOLDFOR IA DIAGNOSIS. Performed By: #### H STROPN, BNP, CMP ####[facility] Qjyhityqra73[address] [place] [address]Dr. Ivette Hernandez XR CHEST 1 Von 03-05-2022 XR CHEST 1 V Normal [facility] CBC AUTO DIFFon 02-27-2022 BASO # 0.0 103/ul Normal 0.0-0.1 [facility] Comment on above: Performed By: #### C BC ####[facility] Cqpgsqtxtu55[address] [place], [place] [address]Dr. Ivette Hernandez Basophils/100 WBC (Bld) 0.2 % Normal 0.2-2.0 [facility] Comment on above: Performed By: #### C BC ####[facility] Xkbheypqrg10[address] [place], [place] [address]Dr. Cherjun Hernandez EO # 0.2 103/ul Normal 0.0-0.7 [facility] Comment on above: Performed By: #### C BC ####[facility] Mcrrefrike[address] [place], [place] [address]Dr. Ivette Hernandez Eosinophils/100 WBC (Bld) 1.9 % Normal 0.9-7.0 [facility] Comment on above: Performed By: #### C BC ####[facility] [address]zjjkjylp[address] [place], [place] [address]Dr. Ivette Hernandez Erythrocyte distribution width (RBC) [Ratio] 14.0 % Normal 11.0-15.0 [facility] Comment on above: Performed By: #### C BC ####[facility] Agljwhwdre79[address] [place], [place] [address]Dr. Ivette Hernandez Hematocrit (Bld) [Volume fraction] 28.7 % Critically low 36.0-48.0 [facility] Comment on above: Performed By: #### C BC ####[facility] Rfyeqpzzsc4223 [place] [id number]. Ivette Hernandez Hemoglobin (Bld) [Mass/Vol] 8.8 g/dL Critically low 12.0-16.0 [facility] Comment on above: Performed By: #### C BC ####[facility] [facility] [address]wi[address] [place] [id number]. Ivette Hernandez IG # 0.05 10e3/ul Critically high 0.00-0.03 [facility] Comment on above: Performed By: #### C BC ####[facility] Pmxvcgmotc[address] [place] [address]Dr. Ivette Hernandez IG % 0.5 % Normal 0.0-0.5 [facility] Comment on above: Performed By: #### C BC ####[facility] Qpefydatkb[address] [place], [place] [address]Dr. Ivette Hernandez LYMPH # 2.1 103/ul Normal 1.2-3.8 [facility] Comment on above: Performed By: #### C BC ####[facility] Rlmjdgizan[address] [place] [address]Dr. Ivette Hernandez Lymphocytes/100 WBC (Bld) 21.3 % Normal 20.5-60.0 [facility] Comment on above: Performed By: #### C BC ####[facility] Fefupsvnpo[address] [place] [address]Dr. Ivette Hernandez MANUAL DIFF REQ NO Normal [facility] Comment on above: Performed By: #### C BC ####[facility] Gcjxosxsux[address] [place], [place] [id number]. Ivette Hernandez MCH (RBC) [Entitic mass] 27.6 pg Normal 26.7-34.0 [facility] Comment on above: Performed By: #### C BC ####[facility] Migfhyljiw[address] [place] [address]Dr. Ivette Hernandez MCHC (RBC) [Mass/Vol] 30.7 g/dL Normal 29.9-35.2 [facility] Comment on above: Performed By: #### C BC ####[facility] Pcjlxffyih45[address] [place] [id number]. Ivette Hernandez MCV (RBC) [Entitic vol] 90.0 fL Normal 81.0-99.0 [facility] Comment on above: Performed By: #### C BC ####[facility] Rkgbwsrfpe68[address] [place] [id number]. Ivette Hernandez MONO # 0.6 103/ul Normal 0.3-0.8 [facility] Comment on above: Performed By: #### C BC ####[facility] Fsjruslhfx57[address] [place], [place] [address]Dr. Ivette Hernandez Monocytes/100 WBC (Bld) 6.5 % Normal 1.7-12.0 [facility] Comment on above: Performed By: #### C BC ####[facility] Necfqkjvxb87[address] [place], [place] [address]Dr. Ivette Hernandez NEUT # 6.7 103/ul Critically high 1.4-6.5 [facility] Comment on above: Performed By: #### C BC ####[facility] Llbukileny3437[address] [place], [place] [address]Dr. Ivette Hernandez Neutrophils/100 WBC (Bld) 69.6 % Normal 43.0-75.0 [facility] Comment on above: Performed By: #### C BC ####[facility] Xnurukikxu7[address] [place], [place] [address]Dr. Ivette Hernandez Platelet mean volume (Bld) [Entitic vol] 9.6 fL Normal 9.5-13.5 [facility] Comment on above: Performed By: #### C BC ####[facility] Dktaqteuba25[address] [place], [place] [address]Dr. Ivette Hernandez PLT 236 103/ul Normal 150-450 [facility] Comment on above: Performed By: #### C BC ####[facility] Aevvbcxilw92[address] [place], [place] [address]Dr. Ivette Hernandez RBC 3.19 106/ul Critically low 4.20-5.40 [facility] Comment on above: Performed By: #### C BC ####[facility] Rsvrccxgux9[address] [place], [place] [address]Dr. Ivette Hernandez WBC 9.6 103/ul Normal 4.0-11.0 [facility] Comment on above: Performed By: #### C BC ####[facility] Ooryzmsscs4[address] [place], [place] [address]Dr. Ivette Hernandez GI PANEL (PCR)on 02-27-2022 Adenovirus F 40/41 Not detected Normal NOT DETECTED [facility] Comment on above: Performed By: #### G IPANEL ####[facility] Lsxkkhgtxp4[address] [place], [place] [address]Dr. Ivette Hernandez Astrovirus Not detected Normal NOT DETECTED [facility] Comment on above: Performed By: #### G IPANEL ####[facility] Juensfpxup7621[address] [place], [place] [address]Dr. Cherjun David C. Diff toxin A/B Detected Critically abnormal NOT DETECTED [facility] Comment on above: Performed By: #### G IPANEL ####[facility] Bgazthfibx726[address] [place], [place] [address]Dr. Ivette Hernandez Campylobacter Not detected Normal NOT DETECTED [facility] Comment on above: Performed By: #### G IPANEL ####[facility] Mkghkfroyo16[address] [place], [place] [address]Dr. Ivette Hernandez Cryptosporidium Not detected Normal NOT DETECTED [facility] Comment on above: Performed By: #### G IPANEL ####[facility] Kznbohgnfs2946[address] [place], [place] [address]Dr. Cherjun Hernandez Cyclos. Cayetanensis Not detected Normal NOT DETECTED [facility] Comment on above: Performed By: #### G IPANEL ####[facility] Ilenpnbbnu3751[address] [place], [place] [address]Dr. Ivette Hernandez E. Coli O157 Not Applicable Normal Not Applicable [facility] Comment on above: Performed By: #### G IPANEL ####[facility] Rqxebocdwq7762[address] [place], [place] [address]Dr. Ivette Hernandez E. histolytica Not detected Normal NOT DETECTED [facility] Comment on above: Performed By: #### G IPANEL ####[facility] Fjewwhlngj[address] [place] [id number]. Ivette Hernandez EAEC Not detected Normal NOT DETECTED [facility] Comment on above: Performed By: #### G IPANEL ####[facility] F[address]ciemdzv[address] [place] [address]Dr. Ivette Hernandez EIEC Not detected Normal NOT DETECTED [facility] Comment on above: Performed By: #### G IPANEL ####[facility] Kbxbqdphyx62[address] [place] [address]Dr. Ivette Hernandez EPEC Not detected Normal NOT DETECTED [facility] Comment on above: Performed By: #### G IPANEL ####[facility] Eudbvynzev89[address] [place], [place] [address]Dr. Ivette Hernandez ETEC Not detected Normal NOT DETECTED [facility] Comment on above: Performed By: #### G IPANEL ####[facility] Mlxzxfpgfg0735[address] [place], [place] [address]Dr. Ivette Hernandez G. Lamblia Not detected Normal NOT DETECTED [facility] Comment on above: Performed By: #### G IPANEL ####[facility] Vfsnlkuvrm7218[address] [place], [place] [address]Dr. Ivette Hernandez GIPANEL CONTROLS PASSED Normal [facility] Comment on above: Performed By: #### G IPANEL ####[facility] Rycyzbnbjv9736[address] [place], [place] [address]Dr. Ivette BRUMFIELDNL GITA HEADER GI PANEL BACTERIA Normal [facility] Comment on above: Performed By: #### G IPANEL ####[facility] Vpwadamwsf4[address] [place] [address]Dr. Ivette Hernandez GIPNLHD ECOLI GI PANEL DIARRHEAGEN IC E.COLI / SHIGELLA Normal [facility] Comment on above: Performed By: #### G IPANEL ####[facility] Nmtrsgyvmz7635[address] [place], [place] [address]Dr. Ivette Hernandez GIPNLHD INFO SEE BELOW Normal [facility] Comment on above: Result Comment: EAEC - Enteroaggregative E. Coli EPEC- Enteropathogenic E. Coli ETEC- Enterotoxigenic E. Coli lt/st STEC- Shigella-like toxin-producing E. Coli stx1/stx2 EIEC- Shigella/Enteroinvasive E. Coli Performed By: #### G IPANEL ####[facility] Yffuastknx[address] [place], [place] [address]Dr. Ivette Hernandez GIPNLHD PARASITES GI PANEL PARASITES Normal [facility] Comment on above: Performed By: #### G IPANEL ####[facility] Cxqhmtixav624[address] [place], [place] [address]Dr. Ivette Hernandez GIPNLHD VIRUS GI PANEL VIRUSES Normal [facility] Comment on above: Performed By: #### G IPANEL ####[facility] Dvspxcnuqh1337[address] [place], [place] [address]Dr. Ivette Hernandez Norovirus GI/GII Not detected Normal NOT DETECTED [facility] Comment on above: Performed By: #### G IPANEL ####[facility] Tgkxhnaopg2536[address] [place], [place] [address]Dr. Ivette Hernandez P. Shigelloides Not detected Normal NOT DETECTED [facility] Comment on above: Performed By: #### G IPANEL ####[facility] Afhbbhuimg4794[address] [place], [place] [address]Dr. Ivette Hernandez Rotavirus A Not detected Normal NOT DETECTED [facility] Comment on above: Performed By: #### G IPANEL ####[facility] Hgqwwjrhqz87[address] [place], [place] [address]Dr. Ivette Hernandez Salmonella Not detected Normal NOT DETECTED [facility] Comment on above: Performed By: #### G IPANEL ####[facility] Zdjkshregv725[address] [place], [place] [address]Dr. Ivette Hernandez Sapovirus Not detected Normal NOT DETECTED [facility] Comment on above: Performed By: #### G IPANEL ####[facility] Sdfecglmnn5417[address] [place], [place] [address]Dr. Ivette Hernandez STEC Not detected Normal NOT DETECTED [facility] Comment on above: Performed By: #### G IPANEL ####[facility] Swcqmwanbq[address] [place], [place] [address]Dr. Ivette Hernandez Vibrio Not detected Normal NOT DETECTED [facility] Comment on above: Performed By: #### G IPANEL ####[facility] Ehvceshgbg[address] [place] [address]Dr. Ivette Hernandez Vibrio Cholera Not detected Normal NOT DETECTED [facility] Comment on above: Performed By: #### G IPANEL ####[facility] Camxfhwutw5[address] [place] [address]Dr. Ivette Hernandez Y. Enterocolitica Not detected Normal NOT DETECTED [facility] Comment on above: Performed By: #### G IPANEL ####[facility] Afrpfgttlz45[address] [place] [address]Dr. Ivette Hernandez OCC BLD IMMUNO SCREENon 02-01 OCCULT BLOOD Negative Normal NEGATIVE [facility] Comment on above: Performed By: #### O BSCRN ####[facility] Pniachcwku[address] [place], [place] [address]Dr. Ivette Hernandez PROF 14(COMP METB)on 022 Albumin [Mass/Vol] 2.4 g/dL Critically low 3.4-5.0 [facility] Comment on above: Performed By: #### C MP ####[facility] Degsaybemi9[address] [place], [place] [address]Dr. Ivette Hernandez Albumin/Globulin [Mass ratio] 0.6 {ratio} Normal [facility] Comment on above: Performed By: #### C MP ####[facility] Dthhiodlma7267[address] [place], [place] [address]Dr. Ivette Hernandez ALP [Catalytic activity/Vol] 68 U/L Normal 46-116 [facility] Comment on above: Performed By: #### C MP ####[facility] Wnyruyhrsy73[address] [place] [address]Dr. Ivette Hernandez ALT [Catalytic activity/Vol] 12 U/L Critically low 14-59 [facility] Comment on above: Performed By: #### C MP ####[facility] Kwuigqhetp036[address] [place] [address]Dr. Ivette Hernandez Anion gap [Moles/Vol] 10.3 mmol/L Normal [facility] Comment on above: Performed By: #### C MP ####[facility] Qipossjuuk9[address] [place] [id number]. Ivette Hernandez AST [Catalytic activity/Vol] 15 U/L Normal 15-37 [facility] Comment on above: Performed By: #### C MP ####[facility] Njeovxwzdg3092 [place] [address]Dr. Ievtte Hernandez Bilirubin [Mass/Vol] 0.4 mg/dL Normal 0.2-1.0 [facility] Comment on above: Performed By: #### C MP ####[facility] Lhdaycyspd64[address] [place] [address]Dr. Ivette Hernandez Calcium [Mass/Vol] 7.5 mg/dL Critically low 8.5-10.1 Th e [facility] Comment on above: Performed By: #### C MP ####[facility] Lqgzuubvqo31[address] [place], [place] [address]Dr. Ivette Hernandez Chloride [Moles/Vol] 102 mmol/L Normal 98-107 [facility] Comment on above: Performed By: #### C MP ####[facility] Sitokrlmrs1759[address] [place], [place] [address]Dr. Ivette Hernandez CO2 [Moles/Vol] 33.8 mmol/L Critically high 21.0-32.0 [facility] Comment on above: Performed By: #### C MP ####[facility] Tlqmkgkmrl8878[address] [place], [place] [address]Dr. Ivette Hrenandez Creatinine [Mass/Vol] 1.35 mg/dL Critically high 0.55-1.02 [facility] Comment on above: Performed By: #### C MP ####[facility] Irblxpisxy[address] [place] [address]Dr. Ivette David EGFR-AF MALAWIAN 47 mL/min/1.73m2 Critically low >=60 [facility] Comment on above: Performed By: #### C MP ####[facility] Tmeifdoypf46[address] [place] [address]Dr. Cherjun David EGFR-NON AF MALAWIAN 38 mL/min/1.73m2 Critically low >=60 [facility] Comment on above: Performed By: #### C MP ####[facility] Syigaxfsvz97[address] [place] [address]Dr. Ivette Hernandez Globulin (S) [Mass/Vol] 4.0 g/dL Normal [facility] Comment on above: Performed By: #### C MP ####[facility] Vcuxpwnrfd34[address] [place] [address]Dr. Ivette Hernandez Glucose [Mass/Vol] 142 mg/dL Critically high 74-106 [facility] Comment on above: Performed By: #### C MP ####[facility] Zhacjjwfsy4880 [place] [address]Dr. Ivette Hernandez Potassium [Moles/Vol] 3.1 mmol/L Critically low 3.5-5.1 [facility] Comment on above: Performed By: #### C MP ####[facility] Ljapypvcvr32[address] [place] [address]Dr. Ivette Hernandez Protein [Mass/Vol] 6.4 g/dL Normal 6.4-8.2 [facility] Comment on above: Performed By: #### C MP ####[facility] Kwtlxasfhh2615[address] [place], [place] [address]Dr. Ivette Hernandez Sodium [Moles/Vol] 143 mmol/L Normal 136-145 [facility] Comment on above: Performed By: #### C MP ####[facility] Qmjahuzkmv8[address] [place] [address]Dr. Ivette Hernandez Urea nitrogen [Mass/Vol] 32.0 mg/dL Critically high 7.0-18.0 [facility] Comment on above: Performed By: #### C MP ####[facility] Kdyrwesamu37[address] [place] [address]Dr. Ivette Hernandez Urea nitrogen/Creatinine [Mass ratio] 23.7 mg/mg Normal [facility] Comment on above: Performed By: #### C MP ####[facility] Twokgzypjp5[address] [place] [address]Dr. Ivette David CBC AUTO DIFFon 02-26-2022 BASO # 0.0 103/ul Normal 0.0-0.1 [facility] Comment on above: Performed By: #### C BC ####[facility] Pjgpdoxidq3388[address] [place], [place] [address]Dr. Ivette Hernandez Basophils/100 WBC (Bld) 0.0 % Critically low 0.2-2.0 [facility] Comment on above: Performed By: #### C BC ####[facility] Dmtjxnhqsp469[address] [place], [place] [address]DrJesse Hernandez EO # 0.0 103/ul Normal 0.0-0.7 [facility] Comment on above: Performed By: #### C BC ####[facility] Xnbdlcvvbn3037[address] [place], [place] [address]Dr. Ivette Hernandez Eosinophils/100 WBC (Bld) 0.0 % Critically low 0.9-7.0 [facility] Comment on above: Performed By: #### C BC ####[facility] Eafrhzqxcl6486[address] [place], [place] [address]Dr. Ivette Hernandez Erythrocyte distribution width (RBC) [Ratio] 13.9 % Normal 11.0-15.0 [facility] Comment on above: Performed By: #### C BC ####[facility] Qiezmfxrrd2531[address] [place], [place] [address]Dr. Ivette Hernandez Hematocrit (Bld) [Volume fraction] 25.9 % Critically low 36.0-48.0 [facility] Comment on above: Performed By: #### C BC ####[facility] Cbwqmriyte9[address] [place], [place] [address]Dr. Ivette Hernandez Hemoglobin (Bld) [Mass/Vol] 8.2 g/dL Critically low 12.0-16.0 [facility] Comment on above: Performed By: #### C BC ####[facility] Elhbxepptl6078[address] [place], [place] [address]DrJesse Hernandez IG # 0.05 10e3/ul Critically high 0.00-0.03 [facility] Comment on above: Performed By: #### C BC ####[facility] Tubrcpgdaw5626[address] [place], [place] [address]DrJesse Hernandez IG % 0.9 % Critically high 0.0-0.5 [facility] Comment on above: Performed By: #### C BC ####[facility] Plnwjxzsde[address] [place] [address]DrJesse Hernandez LYMPH # 1.0 103/ul Critically low 1.2-3.8 [facility] Comment on above: Performed By: #### C BC ####[facility] Dynmpmryot4486 [place] [address]DrJesse Hernandez Lymphocytes/100 WBC (Bld) 17.4 % Critically low 20.5-60.0 [facility] Comment on above: Performed By: #### C BC ####[facility] Dhvrvulsor4866[address] [place], [place] [address]DrJesse Hernandez MANUAL DIFF REQ NO Normal [facility] Comment on above: Performed By: #### C BC ####[facility] Zouolnvolt033[address] [place], [place] [address]DrJesse Hernandez MCH (RBC) [Entitic mass] 28.3 pg Normal 26.7-34.0 [facility] Comment on above: Performed By: #### C BC ####[facility] Jnsudfpesv8207[address] [place], [place] [address]DrJesse Hernandez MCHC (RBC) [Mass/Vol] 31.7 g/dL Normal 29.9-35.2 [facility] Comment on above: Performed By: #### C BC ####[facility] Fqhgacsavt[address] [place], [place] [id number] Hernandez MCV (RBC) [Entitic vol] 89.3 fL Normal 81.0-99.0 [facility] Comment on above: Performed By: #### C BC ####[facility] Mqblzsltsl8[address] [place], [place] [address]DrJesse Hernandez MONO # 0.2 103/ul Critically low 0.3-0.8 [facility] Comment on above: Performed By: #### C BC ####[facility] Sgtksatmzo0184[address] [place], [place] [address]DrJesse Hernandez Monocytes/100 WBC (Bld) 3.6 % Normal 1.7-12.0 [facility] Comment on above: Performed By: #### C BC ####[facility] Jiqxpqgwra040[address] [place] [address]Dr. Ivette Hernandez NEUT # 4.6 103/ul Normal 1.4-6.5 [facility] Comment on above: Performed By: #### C BC ####[facility] Ledhbzfuxd9[address] [place] [address]Dr. Ivette Hernandez Neutrophils/100 WBC (Bld) 78.1 % Critically high 43.0-75.0 [facility] Comment on above: Performed By: #### C BC ####[facility] Sgzdazkhfw5966[address] [place], [place] [address]Dr. Ivette Hernanedz Platelet mean volume (Bld) [Entitic vol] 9.5 fL Normal 9.5-13.5 [facility] Comment on above: Performed By: #### C BC ####[facility] Qdkxsyzhll7194[address] [place], [place] [address]Dr. Ivette Hernandez PLT 195 103/ul Normal 150-450 [facility] Comment on above: Performed By: #### C BC ####[facility] Bxyezupwtd426[address] [place], [place] [address]Dr. Ivette Hernandez RBC 2.90 106/ul Critically low 4.20-5.40 [facility] Comment on above: Performed By: #### C BC ####[facility] Jywtwckqts[address] [place], [place] [address]Dr. Ivette Heranndez WBC 5.8 103/ul Normal 4.0-11.0 [facility] Comment on above: Performed By: #### C BC ####[facility] Tdzrbblgib26[address] [place], [place] [address]Dr. Ivette Hernandez ECHOCARDIO M/2D COMPLETEon 1 ECHOCARDIO M/2D COMPLETE Normal [facility] PROF 14(COMP METB)on 022 Albumin [Mass/Vol] 2.3 g/dL Critically low 3.4-5.0 [facility] Comment on above: Performed By: #### C MP ####[facility] Rurdkbddyg[address] [place] [address]Dr. Ivette David Albumin/Globulin [Mass ratio] 0.6 {ratio} Normal [facility] Comment on above: Performed By: #### C MP ####[facility] Yvsrpmgrdg7941 [place] [id number]. Ivette David ALP [Catalytic activity/Vol] 67 U/L Normal 46-116 [facility] Comment on above: Performed By: #### C MP ####[facility] Qchqeqbpyx264[address] [place], [place] [address]Dr. Ivette David ALT [Catalytic activity/Vol] 15 U/L Normal 14-59 [facility] Comment on above: Performed By: #### C MP ####[facility] Dyldcqrmnj60[address] [place], [place] [address]Dr. Ivette Hernandez Anion gap [Moles/Vol] 7.6 mmol/L Normal [facility] Comment on above: Performed By: #### C MP ####[facility] Bvnosimhxw[address] [place], [place] [address]Dr. Ivette David AST [Catalytic activity/Vol] 12 U/L Critically low 15-37 [facility] Comment on above: Performed By: #### C MP ####[facility] Rlnohygbdo[address] [place], [place] [address]Dr. Ivette Hernandez Bilirubin [Mass/Vol] 0.3 mg/dL Normal 0.2-1.0 [facility] Comment on above: Performed By: #### C MP ####[facility] Cxafidotsz40[address] [place], [place] [address]Dr. Ivette Hernandez Calcium [Mass/Vol] 6.3 mg/dL Critically low 8.5-10.1 Th [facility] Comment on above: Performed By: #### C MP ####[facility] Ttjdyhkwwi[address] [place], [place] [address]Dr. Ivette Hernadnez Chloride [Moles/Vol] 104 mmol/L Normal 98-107 The [facility] Comment on above: Performed By: #### C MP ####[facility] Mcgmhxawlx024[address] [place] [id number]. Ivette Hernandez CO2 [Moles/Vol] 34.8 mmol/L Critically high 21.0-32.0 [facility] Comment on above: Performed By: #### C MP ####[facility] Jwswevtgig4302 [place] [id number]. Ivette Hernandez Creatinine [Mass/Vol] 1.30 mg/dL Critically high 0.55-1.02 [facility] Comment on above: Performed By: #### C MP ####[facility] Zoklndbkgm4439 [place] [id number]. Ivette Hernandez EGFR-AF MALAWIAN 49 mL/min/1.73m2 Critically low >=60 [facility] Comment on above: Performed By: #### C MP ####[facility] Jwonizzyze18[address] [place], [place] [address]Dr. Ivette Hernandez EGFR-NON AF MALAWIAN 40 mL/min/1.73m2 Critically low >=60 [facility] Comment on above: Performed By: #### C MP ####[facility] Uvvzsftjil1120 [place] [id number]. Ivette Hernandez Globulin (S) [Mass/Vol] 4.1 g/dL Normal [facility] Comment on above: Performed By: #### C MP ####[facility] Fwgivgnvdw85[address] [place] [address]Dr. Ivette Hernandez Glucose [Mass/Vol] 130 mg/dL Critically high 74-106 T [facility] Comment on above: Performed By: #### C MP ####[facility] Ugmlesllbd7548 [place] [id number]. Ivette Hernandez Potassium [Moles/Vol] 3.4 mmol/L Critically low 3.5-5.1 [facility] Comment on above: Performed By: #### C MP ####[facility] Wfpbolrtjt7442 [place] [id number]. Ivette Hernandez Protein [Mass/Vol] 6.4 g/dL Normal 6.4-8.2 [facility] Comment on above: Performed By: #### C MP ####[facility] Jlnhypqnie039[address] [place] [address]Dr. Ivette David Sodium [Moles/Vol] 143 mmol/L Normal 136-145 [facility] Comment on above: Performed By: #### C MP ####[facility] Cakcoviidh[address] [place], [place] [address]Dr. Ivette David Urea nitrogen [Mass/Vol] 24.0 mg/dL Critically high 7.0-18.0 The [facility] Comment on above: Performed By: #### C MP ####[facility] Yjzojdtdxl[address] [place], [place] [address]Dr. Ivette Hernandez Urea nitrogen/Creatinine [Mass ratio] 18.5 mg/mg Normal The [facility] Comment on above: Performed By: #### C MP ####[facility] Wwallpkvdl9[address] [place], [place] [address]Dr. Ivette Hernandez US KIDNEYS BLADDERon 022 US KIDNEYS BLADDER Normal [facility] BNPon 02-25-2022 Natriuretic peptide B (Bld) [Mass/Vol] 48558.0 pg/mL Critically high <=900.0 The [facility] Comment on above: Performed By: #### M G, BMP, BNP ####[facility] Islzveixbq[address] [place], [place] [address]Dr. Ivette David CBC AUTO DIFFon 02-25-2022 BASO # 0.0 103/ul Normal 0.0-0.1 The [facility] Comment on above: Performed By: #### C BC ####[facility] Mmeifntxps[address] [place], [place] [address]Dr. Ivette Hernandez Basophils/100 WBC (Bld) 0.4 % Normal 0.2-2.0 The [facility] Comment on above: Performed By: #### C BC ####[facility] Azazvzeuff37[address] [place], [place] [address]Dr. Ivette Hernandez EO # 0.1 103/ul Normal 0.0-0.7 The [facility] Comment on above: Performed By: #### C BC ####[facility] Pqwxknqvnl32[address] [place], [place] [address]Dr. Ivette Hernandez Eosinophils/100 WBC (Bld) 0.8 % Critically low 0.9-7.0 The [facility] Comment on above: Performed By: #### C BC ####[facility] Dxgqdvxpyq9162 [place] [address]Dr. Ivette Hernandez Erythrocyte distribution width (RBC) [Ratio] 14.3 % Normal 11.0-15.0 The [facility] Comment on above: Performed By: #### C BC ####[facility] Nrhcrjgrta8[address] [place], [place] [address]Dr. Ivette Hernandez Hematocrit (Bld) [Volume fraction] 29.3 % Critically low 36.0-48.0 The [facility] Comment on above: Performed By: #### C BC ####[facility] Odwuhbfscd[address] [place], [place] [address]Dr. Ivette Hernandez Hemoglobin (Bld) [Mass/Vol] 9.2 g/dL Critically low 12.0-16.0 The [facility] Comment on above: Performed By: #### C BC ####[facility] Ecwedzzhmz3[address] [place], [place] [address]Dr. Ivette Hernandez IG # 0.04 10e3/ul Critically high 0.00-0.03 [facility] Comment on above: Performed By: #### C BC ####[facility] Wtppfkwxxa[address] [place], [place] [address]Dr. Ivette Hernandez IG % 0.4 % Normal 0.0-0.5 The [facility] Comment on above: Performed By: #### C BC ####[facility] Zlqksikyer[address] [place], [place] [address]Dr. Ivette Hernandez LYMPH # 1.9 103/ul Normal 1.2-3.8 The [facility] Comment on above: Performed By: #### C BC ####[facility] Gselswebnp6[address] [place], [place] [address]Dr. Ivette Hernandez Lymphocytes/100 WBC (Bld) 17.5 % Critically low 20.5-60.0 The [facility] Comment on above: Performed By: #### C BC ####[facility] Ckxsrtehpp64[address] [place] [address]Dr. Ivette Hernandez MANUAL DIFF REQ NO Normal [facility] Comment on above: Performed By: #### C BC ####[facility] Zpgjabfoyb5078 [place] [id number]. Ivette Hernandez MCH (RBC) [Entitic mass] 28.6 pg Normal 26.7-34.0 The [facility] Comment on above: Performed By: #### C BC ####[facility] Vcbnnwbtqz8191 [place] [address]Dr. Ivette Hernandez MCHC (RBC) [Mass/Vol] 31.4 g/dL Normal 29.9-35.2 The [facility] Comment on above: Performed By: #### C BC ####[facility] Sjetqyrjao89[address] [place] [address]Dr. Ivette David MCV (RBC) [Entitic vol] 91.0 fL Normal 81.0-99.0 The [facility] Comment on above: Performed By: #### C BC ####[facility] Kahkyehgfi[address] [place], [place] [address]Dr. Ivette David MONO # 0.6 103/ul Normal 0.3-0.8 The [facility] Comment on above: Performed By: #### C BC ####[facility] Vldqytolpn3057 [place] [address]Dr. Cherjun Hernandez Monocytes/100 WBC (Bld) 5.4 % Normal 1.7-12.0 The [facility] Comment on above: Performed By: #### C BC ####[facility] Nemjjztiug5957 [place] [address]Dr. Cherjun David NEUT # 8.1 103/ul Critically high 1.4-6.5 [facility] Comment on above: Performed By: #### C BC ####[facility] Whshaghpsd2687 [place] [address]Dr. Ivette Hernandez Neutrophils/100 WBC (Bld) 75.5 % Critically high 43.0-75.0 The [facility] Comment on above: Performed By: #### C BC ####[facility] Zomycqkmlc9105 [place] [id number]. Ivette Hernandez Platelet mean volume (Bld) [Entitic vol] 9.7 fL Normal 9.5-13.5 [facility] Comment on above: Performed By: #### C BC ####[facility] Kofqvydpyd70[address] [place] [address]Dr. Ivette Hernandez PLT 242 103/ul Normal 150-450 [facility] Comment on above: Performed By: #### C BC ####[facility] Gbqwocqblo3022 [place] [id number]. Cherjun Hernandez RBC 3.22 106/ul Critically low 4.20-5.40 [facility] Comment on above: Performed By: #### C BC ####[facility] Tnqgmldwxs87[address] [place] [address]Dr. Ivette Hernandez WBC 10.8 103/ul Normal 4.0-11.0 [facility] Comment on above: Performed By: #### C BC ####[facility] Hrsbxgnawl3184 [place] [address]Dr. Ivette Hernandez MAGNESIUMon 02-25-2022 Magnesium [Mass/Vol] 1.3 mg/dL Critically low 1.8-2.4 [facility] Comment on above: Performed By: #### M MYRNA Aranda, BNP ####[facility] Ikjnsgwskp1442 [place] [address]Dr. Ivette Hernandez POINT OF CARE GLUCOSEon 02-01 Glucose [Mass/Vol] 191 mg/dL Critically high 74-106 T [facility] Comment on above: Performed By: #### P OCGLUC ####[facility] Pycamcgzpb8840 [place] [address]Dr. Ivette Hernandez PROF CHEM 8 (BAS METB)on Anion gap [Moles/Vol] 7.7 mmol/L Normal [facility] Comment on above: Performed By: #### M MYRNA Aranda, BNP ####[facility] Bltjwtblaw9034 [place] [address]Dr. Ivette Hernandez Calcium [Mass/Vol] 6.4 mg/dL Critically low 8.5-10.1 Th e [facility] Comment on above: Performed By: #### Chris Aranda BMP, BNP ####[facility] Pgbsziuzvo4787 [place] [address]Dr. Cherjun Hernandez Chloride [Moles/Vol] 105 mmol/L Normal 98-107 [facility] Comment on above: Performed By: #### Chris Aranda BMP, BNP ####[facility] D[address]psivdujj[address] [place], [place] [address]Dr. Cherjun Hernandez CO2 [Moles/Vol] 37.4 mmol/L Critically high 21.0-32.0 [facility] Comment on above: Performed By: #### hCris Aranda BMP, BNP ####[facility] Pxbykuszlk12[address] [place], [place] [address]Dr. Cherjun Hernandez Creatinine [Mass/Vol] 1.41 mg/dL Critically high 0.55-1.02 [facility] Comment on above: Performed By: #### Chris Aranda BMP, BNP ####[facility] Bdqozzygol22[address] [place], [place] [address]Dr. Cherjun David EGFR-AF MALAWIAN 44 mL/min/1.73m2 Critically low >=60 The [facility] Comment on above: Performed By: #### Chris Aranda BMP, BNP ####[facility] Edanpwrklt7[address] [place], [place] [address]Dr. Cherjun Hernandez EGFR-NON AF MALAWIAN 37 mL/min/1.73m2 Critically low >=60 [facility] Comment on above: Performed By: #### Chris Aranda BMP, BNP ####[facility] Vatymoqbtu[address] [place], [place] [address]Dr. Ivette Hernandez Glucose [Mass/Vol] 132 mg/dL Critically high 74-106 T [facility] Comment on above: Performed By: #### Chris Aranda BMP, BNP ####[facility] Hxettslhwz14[address] [place], [place] [address]Dr. Ivette Hernandez Potassium [Moles/Vol] 3.1 mmol/L Critically low 3.5-5.1 [facility] Comment on above: Performed By: #### M G, BMP, BNP ####[facility] Bkvcixrkze9995 [place] [id number]. Ivette Hernandez Sodium [Moles/Vol] 147 mmol/L Critically high 136-145 T [facility] Comment on above: Performed By: #### M G, BMP, BNP ####[facility] Zymagbfjta9343 [place] [id number]. Ivette Hernandez Urea nitrogen [Mass/Vol] 15.0 mg/dL Normal 7.0-18.0 [facility] Comment on above: Performed By: #### M G, BMP, BNP ####[facility] Xcnrwlzfxh5233 [place] [address]Dr. Ivette Hernandez Urea nitrogen/Creatinine [Mass ratio] 10.6 mg/mg Normal [facility] Comment on above: Performed By: #### M G, BMP, BNP ####[facility] Ypvkrfxjow[address] [place], [place] [address]Dr. Ivette Hernandez TROPONIN, HIGH SENSITIVITYon 02-25-2022 HSTROP 17.6 pg/mL Normal 4.0-51.3 [facility] Comment on above: Result Comment: CUT- OFF POINTS HAVE BEEN ESTABLISHED BASED ON THE FOURTH UNIVERSAL DEFINITIONS OF MYOCARDIALINFARCTION. THE UPPER REFERENCE LIMIT (URL) OF TROPONIN, DEFINED THE 99TH PERCENTILE OFcTnI DISTRIBUTION IN A REFERENCE POPULATION, HAS BEEN CONFIRMED THE DECISION THRESHOLDFOR IA DIAGNOSIS. Performed By: #### H STROPN ####[facility] Ysrsffbqmh[address] [place], [place] [address]Dr. Ivette Hernandez HSTROP 15.5 pg/mL Normal 4.0-51.3 [facility] Comment on above: Result Comment: CUT- OFF POINTS HAVE BEEN ESTABLISHED BASED ON THE FOURTH UNIVERSAL DEFINITIONS OF MYOCARDIALINFARCTION. THE UPPER REFERENCE LIMIT (URL) OF TROPONIN, DEFINED THE 99TH PERCENTILE OFcTnI DISTRIBUTION IN A REFERENCE POPULATION, HAS BEEN CONFIRMED THE DECISION THRESHOLDFOR IA DIAGNOSIS. Performed By: #### H STROPN ####[facility] Qvaxuldrte7109 [place] [address]Dr. Ivette Hernandez BNPon 02-24-2022 Natriuretic peptide B (Bld) [Mass/Vol] 27508.0 pg/mL Critically high <=900.0 The [facility] Comment on above: Performed By: #### B BALE STACKER, HSTROPN, CMP ####[facility] Lindkqdphj[address] [place], [place] [address]Dr. Ivette Hernandez CBC AUTO DIFFon 02-24-2022 BASO # 0.1 103/ul Normal 0.0-0.1 The [facility] Comment on above: Performed By: #### C BC ####[facility] Prflbfwqvm10[address] [place], [place] [address]Dr. Ivette David Basophils/100 WBC (Bld) 0.5 % Normal 0.2-2.0 The [facility] Comment on above: Performed By: #### C BC ####[facility] Rwnruwcrqp2[address] [place], [place] [address]Dr. Ivette Hernandez EO # 0.2 103/ul Normal 0.0-0.7 The [facility] Comment on above: Performed By: #### C BC ####[facility] Btlpksrbqs8[address] [place], [place] [address]Dr. Cherjun Hernandez Eosinophils/100 WBC (Bld) 2.3 % Normal 0.9-7.0 The [facility] Comment on above: Performed By: #### C BC ####[facility] Tgsgspbxgf[address] [place], [place] [address]Dr. Ivette Hernandez Erythrocyte distribution width (RBC) [Ratio] 14.2 % Normal 11.0-15.0 The [facility] Comment on above: Performed By: #### C BC ####[facility] Bkrrlybhwu[address] [place], [place] [address]Dr. Ivette Hernandez Hematocrit (Bld) [Volume fraction] 30.2 % Critically low 36.0-48.0 The [facility] Comment on above: Performed By: #### C BC ####[facility] Bmswmbtawu0726[address] [place], [place] [address]Dr. Ivette Hernandez Hemoglobin (Bld) [Mass/Vol] 9.3 g/dL Critically low 12.0-16.0 The [facility] Comment on above: Performed By: #### C BC ####[facility] Kjeodsxust13[address] [place] [id number]. Cherjun David IG # 0.04 10e3/ul Critically high 0.00-0.03 [facility] Comment on above: Performed By: #### C BC ####[facility] Xfthiwvewv6064 [place] [address]Dr. Ivette Hernandez IG % 0.4 % Normal 0.0-0.5 The [facility] Comment on above: Performed By: #### C BC ####[facility] Dhrjwkyptx4468 [place] [address]Dr. Ivette Hernandez LYMPH # 2.6 103/ul Normal 1.2-3.8 The [facility] Comment on above: Performed By: #### C BC ####[facility] Ypigpguvzt9215 [place] [address]Dr. Ivette Hernandez Lymphocytes/100 WBC (Bld) 27.1 % Normal 20.5-60.0 The [facility] Comment on above: Performed By: #### C BC ####[facility] Wwtjemelcq7750 [place] [address]Dr. Ivette Hernandez MANUAL DIFF REQ NO Normal [facility] Comment on above: Performed By: #### C BC ####[facility] Foaoqzeeif9590 [place] [address]Dr. Ivette Hernandez MCH (RBC) [Entitic mass] 27.8 pg Normal 26.7-34.0 The [facility] Comment on above: Performed By: #### C BC ####[facility] Tlsjqjgizc6490 [place] [address]Dr. Ivette David MCHC (RBC) [Mass/Vol] 30.8 g/dL Normal 29.9-35.2 The [facility] Comment on above: Performed By: #### C BC ####[facility] Jcdtnaccle4[address] [place], [place] [address]Dr. Ivette David MCV (RBC) [Entitic vol] 90.4 fL Normal 81.0-99.0 The [facility] Comment on above: Performed By: #### C BC ####[facility] Vkfpafawpw2295 [place] [id number]. Ivette Hernandez MONO # 0.6 103/ul Normal 0.3-0.8 The [facility] Comment on above: Performed By: #### C BC ####[facility] Eychwvloal8972 [place] [id number]. Ivette Hernandez Monocytes/100 WBC (Bld) 6.1 % Normal 1.7-12.0 The [facility] Comment on above: Performed By: #### C BC ####[facility] Ikbdlxicox[address] [place], [place] [address]Dr. Ivette Hernandez NEUT # 6.1 103/ul Normal 1.4-6.5 The [facility] Comment on above: Performed By: #### C BC ####[facility] Mjakjicovu14[address] [place], [place] [address]Dr. Ivette Hernandez Neutrophils/100 WBC (Bld) 63.6 % Normal 43.0-75.0 The [facility] Comment on above: Performed By: #### C BC ####[facility] Eaerxqanfv57[address] [place], [place] [address]Dr. Ivette Hernandez Platelet mean volume (Bld) [Entitic vol] 9.2 fL Critically low 9.5-13.5 The [facility] Comment on above: Performed By: #### C BC ####[facility] Tpjsfkrphg4532 [place] [id number]. Ivette Hernandez PLT 267 103/ul Normal 150-450 The [facility] Comment on above: Performed By: #### C BC ####[facility] Ov[address]qq[address] [place], [place] [address]Dr. Ivette Hernandez RBC 3.34 106/ul Critically low 4.20-5.40 [facility] Comment on above: Performed By: #### C BC ####[facility] Rdvcimipmf[address] [place], [place] [address]Dr. Ivette Hernandez WBC 9.6 103/ul Normal 4.0-11.0 The [facility] Comment on above: Performed By: #### C BC ####[facility] Rwiqjgfyaz[address] [place], [place] [address]DrJesse Hernandez Covid-19 PCR (CVDTBH)on 02-01 SARS-CoV-2 (COVID-19) RNA MARRY+probe Ql (Unsp spec) Not detected Normal NOT DETECTED [facility] Comment on above: Result Comment: When diagnostic [...] for this test is supported by the [employer] of Health and Human Service's declaration that [...] be used). Performed By: #### C VDTBH ####[facility] Aldoihfbbi[address] [place] [address]Dr. Ivette Hernandez IRON AND TIBCon 02-24-2022 % SATURATION 13.8 % Normal [facility] Comment on above: Performed By: #### V ITAD, FETIBC, B12FOL ####[facility] Pzqujvtomw10[address] [place] [address]DrJesse Hernandez Iron [Mass/Vol] 26.0 ug/dL Critically low 50.0-170.0 [facility] Comment on above: Performed By: #### V ITAD, FETIBC, B12FOL ####[facility] Tyimojqkkv5489 [place] [address]DrJesse Hernandez TIBC DIRECT 188.0 ug/dL Critically low 250.0-450.0 [facility] Comment on above: Performed By: #### V ITAD, FETIBC, B12FOL ####[facility] Ztxhisdyjs2340 [place] [address]DrJesse Hernandez PROF 14(COMP METB)on 022 Albumin [Mass/Vol] 2.6 g/dL Critically low 3.4-5.0 Th [facility] Comment on above: Performed By: #### B BALE STACKER, HSTROPN, CMP ####[facility] Znpkdadnbm6018 [place] [address]Dr. Ivette Hernandez Albumin/Globulin [Mass ratio] 0.6 {ratio} Normal [facility] Comment on above: Performed By: #### B BALE STACKER, HSTROPN, CMP ####[facility] Iimjbotxqw1712 [place] [address]Dr. Ivette Hernandez ALP [Catalytic activity/Vol] 79 U/L Normal 46-116 [facility] Comment on above: Performed By: #### B BALE STACKER, HSTROPN, CMP ####[facility] Cthzgzqcmb[address] [place], [place] [address]Dr. Ivette Hernandez ALT [Catalytic activity/Vol] 18 U/L Normal 14-59 [facility] Comment on above: Performed By: #### B BALE STACKER, HSTROPN, CMP ####[facility] Saakhyflmr[address] [place], [place] [address]Dr. Ivette Hernandez Anion gap [Moles/Vol] 7.4 mmol/L Normal [facility] Comment on above: Performed By: #### B BALE STACKER, HSTROPN, CMP ####[facility] Swhvzogsng[address] [place], [place] [address]Dr. Ivette Hernandez AST [Catalytic activity/Vol] 14 U/L Critically low 15-37 [facility] Comment on above: Performed By: #### B BALE STACKER, HSTROPN, CMP ####[facility] Mnpnaihvtn9627 [place] [address]Dr. Ivette Hernandez Bilirubin [Mass/Vol] 0.4 mg/dL Normal 0.2-1.0 [facility] Comment on above: Performed By: #### B BALE STACKER, HSTROPN, CMP ####[facility] [facility] [id number] [place] [address]Dr. Ivette Hernandez Calcium [Mass/Vol] 6.3 mg/dL Critically low 8.5-10.1 Th e [facility] Comment on above: Performed By: #### B BALE STACKER, HSTROPN, CMP ####[facility] [address] [place] [address]Dr. Ivette Hernandez Chloride [Moles/Vol] 108 mmol/L Critically high 98-107 [facility] Comment on above: Performed By: #### B BALE STACKER, HSTROPN, CMP ####[facility] [address] [place] [address]Dr. Ivette Hernandez CO2 [Moles/Vol] 31.7 mmol/L Normal 21.0-32.0 [facility] Comment on above: Performed By: #### B BALE STACKER, HSTROPN, CMP ####[facility] [address] [place], [place] [address]Dr. Ivette Hernandez Creatinine [Mass/Vol] 1.50 mg/dL Critically high 0.55-1.02 [facility] Comment on above: Performed By: #### B BALE STACKER, HSTROPN, CMP ####[facility] [address] [place] [address]Dr. Ivette David EGFR-AF MALAWIAN 41 mL/min/1.73m2 Critically low >=60 [facility] Comment on above: Performed By: #### B BALE STACKER, HSTROPN, CMP ####[facility] [address] [place] [address]Dr. Cherjun David EGFR-NON AF MALAWIAN 34 mL/min/1.73m2 Critically low >=60 [facility] Comment on above: Performed By: #### B BALE STACKER, HSTROPN, CMP ####[facility] [address] [place] [address]Dr. Ivette Hernandez Globulin (S) [Mass/Vol] 4.3 g/dL Normal [facility] Comment on above: Performed By: #### B BALE STACKER, HSTROPN, CMP ####[facility] [address] [place] [address]Dr. Cherjun Hernandez Glucose [Mass/Vol] 116 mg/dL Critically high 74-106 [facility] Comment on above: Performed By: #### B BALE STACKER, HSTROPN, CMP ####[facility] [address] [place] [address]Dr. Ivette Hernandez Potassium [Moles/Vol] 3.1 mmol/L Critically low 3.5-5.1 [facility] Comment on above: Performed By: #### B BALE STACKER, HSTROPN, CMP ####[facility] [address] [place] [address]Dr. Ivette Hernandez Protein [Mass/Vol] 6.9 g/dL Normal 6.4-8.2 [facility] Comment on above: Performed By: #### B BALE STACKER, HSTROPN, CMP ####[facility] [address] [place] [address]Dr. Ivette Hernandez Sodium [Moles/Vol] 144 mmol/L Normal 136-145 [facility] Comment on above: Performed By: #### B BALE STACKER, HSTROPN, CMP ####[facility] [address] [place] [address]Dr. Ivette Hernandez Urea nitrogen [Mass/Vol] 16.0 mg/dL Normal 7.0-18.0 [facility] Comment on above: Performed By: #### B BALE STACKER, HSTROPN, CMP ####[facility] [address] [place] [address]Dr. Ivette Hernandez Urea nitrogen/Creatinine [Mass ratio] 10.7 mg/mg Normal [facility] Comment on above: Performed By: #### B BALE STACKER, HSTROPN, CMP ####[facility] [address] [place] [address]Dr. Ivette Hernandez TROPONIN, HIGH SENSITIVITYon 02-24-2022 HSTROP 20.8 pg/mL Normal 4.0-51.3 [facility] Comment on above: Result Comment: CUT- OFF POINTS HAVE BEEN ESTABLISHED BASED ON THE FOURTH UNIVERSAL DEFINITIONS OF MYOCARDIALINFARCTION. THE UPPER REFERENCE LIMIT (URL) OF TROPONIN, DEFINED THE 99TH PERCENTILE OFcTnI DISTRIBUTION IN A REFERENCE POPULATION, HAS BEEN CONFIRMED THE DECISION THRESHOLDFOR IA DIAGNOSIS. Performed By: #### B BALE STACKER, HSTROPN, CMP ####[facility] [address] [place] [id number]. Ivette Hernandez VIT B12 AND FOLATEon Cobalamin (Vitamin B12) [Mass/Vol] 930.0 pg/mL Normal 193.0-986.0 [facility] Comment on above: Performed By: #### V ITAD, FETIBC, B12FOL ####[facility] [address] [place] [address]Dr. Ivette Hernandez FOLATE 22.30 ng/mL Normal 8.60-58.90 [facility] Comment on above: Performed By: #### V ITAD, FETIBC, B12FOL ####[facility] [address] [place] [address]Dr. Ivette Hernandez VITAMIN D 25 OHon 02-24-2022 VIT D 25-OH 35.4 ng/mL Normal [facility] Comment on above: Performed By: #### V ITAD, FETIBC, B12FOL ####[facility] [address] [place] [address]Dr. Ivette Hernandez VIT D RANGES SEE BELOW Normal [facility] Comment on above: Result Comment: <20 ng/mL Vit D deficient 20 - <30 ng/mL Vit D insufficient 30 - 100 ng/mL Vit D sufficient >100 ng/mL Potential Toxicity Performed By: #### V ITAD, FETIBC, B12FOL ####[facility] [address] [place] [address]Dr. Ivette Hernandez XR CHEST 1 Von 02-24-2022 XR CHEST 1 V Normal [facility] CHEMISTRYOrdered By: SYSTEM SYSTEM on 02-06-2022 Creatinine [Mass/Vol] 1.5 mg/dL High 0.5 - 1.3 mg/dL [facility] Remisol GFR/1.73 sq M.predicted among blacks MDRD (S/P/Bld) [Vol rate/Area] 41 mL/min/1.73 m2 Low >=59mL/min/ 1.73 m2 [facility] Chem S GFR/1.73 sq M.predicted among non-blacks MDRD (S/P/Bld) [Vol rate/Area] 34 mL/min/1.73 m2 Low >=59mL/min/ 1.73 m2 [facility] Chem S Covid-19 PCR (CVDTB)on 11-01 SARS-CoV-2 (COVID-19) RNA MARRY+probe Ql (Unsp spec) Detected Critically abnormal NOT DETECTED [facility] Comment on above: Result Comment: This test is not yet approved or cleared by the [place] FDA. When there are no FDA-approved or cleared tests available, and other criteria are met, FDA can make tests available under an emergency access mechanism called an Emergency Use Authorization (EUA). The EUA for this test is supported by the [place] of Health and Human Service's (HHS's) declaration [...] be used). Performed By: #### C VDTB ####[facility] [address] [place], [place] [address]Kw. Ivette [facility] Metabolic Pane marky 10-03-2021 Albumin [Mass/Vol] 3.3 g/dL Low 3.6-5.1 [facility] Comment on above: Performed By: #### C MP #### [facility] [address], [place] [id number] Albumin/Globulin [Mass ratio] 1.5 {ratio} Normal 1.0-2.5 [facility] Comment on above: Performed By: #### C MP #### [facility] [address] [place], [place] [id number] ALP [Catalytic activity/Vol] 56 U/L Normal 35-119 [facility] Comment on above: Performed By: #### C MP #### [facility] [address], [place] [id number] ALT [Catalytic activity/Vol] 10 U/L Normal 6-33 [facility] Comment on above: Result Comment: 04/02 Female reference range changed. Performed By: #### C MP #### [facility] [address] [place], [place] [id number] Anion gap [Moles/Vol] 15 mmol/L Normal 12-20 [facility] Comment on above: Result Comment: Effata ctive 05/08/2019 reference range changed. Performed By: #### C MP #### [facility] [address] [place], [place] [id number] AST [Catalytic activity/Vol] 15 U/L Normal 9-34 [facility] Comment on above: Performed By: #### C MP #### [facility] [address], [place] [id number] BUN/CREA 15 Ratio Normal 6-22 [facility] Comment on above: Performed By: #### C MP #### [facility] [address], [place] [id number] Calcium [Mass/Vol] 6.2 mg/dL Low 8.6-10.2 [facility] Comment on above: Performed By: #### C MP #### [facility] [address] [facility] [place] [id number] Chloride [Moles/Vol] 108 mmol/L High 98-107 [facility] Comment on above: Performed By: #### C MP #### [facility] [address] [facility] [place] [id number] CO2 [Moles/Vol] 24 mmol/L Normal 20-31 [facility] Comment on above: Performed By: #### C MP #### [facility] [address] [facility] [place] [id number] Creatinine [Mass/Vol] 1.9 mg/dL High 0.6-1.4 [facility] Comment on above: Performed By: #### C MP #### [facility] [address] [facility] [place] [id number] eGFRAA 31 mL/min/1.73m2 Low >60 [facility] Comment on above: Performed By: #### C MP #### [facility] [address] [facility] [place] [id number] eGFRNAA 26 mL/min/1.73m2 Low >60 [facility] Comment on above: Performed By: #### C MP #### [facility] [address], [place] [id number] Globulin (S) [Mass/Vol] 2.2 g/dL Normal 1.9-3.7 [facility] Comment on above: Performed By: #### C MP #### [facility] [address], [place] [id number] Glucose [Mass/Vol] 107 mg/dL High 65-99 [facility] Comment on above: Result Comment: For FASTING Glucose --- ADA reference ranges: Normal 65-99 mg/dl Prediabetes 100-125 Diabetes >/= 126 Performed By: #### C MP #### [facility] [address], [place] [id number] Potassium [Moles/Vol] 4.3 mmol/L Normal 3.5-5.5 [facility] Comment on above: Performed By: #### C MP #### [facility] [address], [place] [id number] Protein [Mass/Vol] 5.5 g/dL Low 6.1-8.1 [facility] Comment on above: Performed By: #### C MP #### [facility] [address], [place] [id number] Sodium [Moles/Vol] 143 mmol/L Normal 135-146 [facility] Comment on above: Performed By: #### C MP #### [facility] [address], [place] [id number] TBIL <0.3 Normal [facility] Comment on above: Performed By: #### C MP #### [facility] [address], [place] [id number] Urea nitrogen [Mass/Vol] 29 mg/dL High 7-25 [facility] Comment on above: Performed By: #### C MP #### [facility] [address], [place] [id number] Q - B-TYPE NATRIURETIC (BNP) on 10-03-2021 Natriuretic peptide B (Bld) [Mass/Vol] 248 pg/mL High <100 [facility] Comment on above: Order Comment: [facility] performed at: QPT, [facility], [address], [address] [facility], [place], [address], [employer] Records Clerk: Chon Manzano MD [facility] Date/Time: [id number] [facility] Results Received Date/Time: [facility] Reported Date/Time: Result Comment: BNP levels increase with age in the general population with the highest values seen in individuals greater than 75 years of age. Reference: J. Am. Dylan. Cardiol. 2002; 40:976-982. Performed By: #### [id number] #### [facility] [address] [place] [address] Complete Blood Count 09-11 Erythrocyte distribution width (RBC) [Ratio] 14.3 % Normal 11.0-15.0 [facility] Comment on above: Performed By: #### C MP, CBC #### [facility] [address], [place] [id number] Hematocrit (Bld) [Volume fraction] 30.1 % Low 35.0-47.0 [facility] Comment on above: Performed By: #### C MP, CBC #### [facility] [address], [place] [id number] Hemoglobin (Bld) [Mass/Vol] 9.1 g/dL Low 11.6-15.5 [facility] Comment on above: Performed By: #### C MP, CBC #### [facility] [address], [place] [id number] MCH (RBC) [Entitic mass] 28.7 pg Normal 27.0-33.0 [facility] Comment on above: Performed By: #### C MP, CBC #### [facility] [address], [place] [id number] MCHC (RBC) [Mass/Vol] 30.2 g/dL Low 32.0-36.0 [facility] Comment on above: Performed By: #### C MP, CBC #### [facility] [address], [place] [id number] MCV (RBC) [Entitic vol] 95 fL Normal 80-100 [facility] Comment on above: Performed By: #### C MP, CBC #### [facility] [address], [place] [id number] Platelet mean volume (Bld) [Entitic vol] 9.60 fL Normal 7.50-12.50 [facility] Comment on above: Performed By: #### C MP, CBC #### [facility] [address] [place], [place] [id number] Platelets (Bld) [#/Vol] 219 10*3/uL Normal 140-400 [facility] Comment on above: Performed By: #### C MP, CBC #### [facility] [address], [place] [id number] RBC (Bld) [#/Vol] 3.17 10*6/uL Low 3.90-5.20 [facility] Comment on above: Performed By: #### C MP, CBC #### [facility] [address], [place] [id number] RDW-SD 49.8 fL Normal 37.0-50.0 [facility] Comment on above: Performed By: #### C MP, CBC #### [facility] [address], [place] [id number] WBC (Bld) [#/Vol] 11.0 10*3/uL Normal 3.8-11.0 [facility] Comment on above: Performed By: #### C MP, CBC #### [facility] [address], [place] [id number] Comprehensive Metabolic Pane [facility] 09-11-2021 Albumin [Mass/Vol] 3.4 g/dL Low 3.6-5.1 [facility] Comment on above: Performed By: #### C MP, CBC #### [facility] [address], [place] [id number] Albumin/Globulin [Mass ratio] 1.5 {ratio} Normal 1.0-2.5 [facility] Comment on above: Performed By: #### C MP, CBC #### [facility] [address], [place] [id number] ALP [Catalytic activity/Vol] 65 U/L Normal 35-119 [facility] Comment on above: Performed By: #### C MP, CBC #### [facility] [address], [place] [id number] ALT [Catalytic activity/Vol] 52 U/L High 6-33 [facility] Comment on above: Result Comment: 04/02 Female reference range changed. Performed By: #### C MP, CBC #### [facility] [address], [place] [id number] Anion gap [Moles/Vol] 17 mmol/L Normal 12-20 [facility] Comment on above: Result Comment: Effe ctive 05/08/2019 reference range changed. Performed By: #### C MP, CBC #### [facility] [address], [place] [id number] AST [Catalytic activity/Vol] 26 U/L Normal 9-34 [facility] Comment on above: Performed By: #### C MP, CBC #### [facility] [address] [place], [place] [id number] BUN/CREA 20 Ratio Normal 6-22 [facility] Comment on above: Performed By: #### C MP, CBC #### [facility] [address], [place] [id number] Calcium [Mass/Vol] 7.1 mg/dL Low 8.6-10.2 [facility] Comment on above: Performed By: #### C MP, CBC #### [facility] [address], [place] [id number] Chloride [Moles/Vol] 104 mmol/L Normal 98-107 [facility] Comment on above: Performed By: #### C MP, CBC #### [facility] [address], [place] [id number] CO2 [Moles/Vol] 27 mmol/L Normal 20-31 [facility] Comment on above: Performed By: #### C MP, CBC #### [facility] [address], [place] [id number] Creatinine [Mass/Vol] 1.6 mg/dL High 0.6-1.4 [facility] Comment on above: Performed By: #### C MP, CBC #### [facility] [address], [place] [id number] eGFRAA 38 mL/min/1.73m2 Low >60 [facility] Comment on above: Performed By: #### C MP, CBC #### [facility] [address], [place] [id number] eGFRNAA 31 mL/min/1.73m2 Low >60 [facility] Comment on above: Performed By: #### C MP, CBC #### [facility] [address], [place] [id number] Globulin (S) [Mass/Vol] 2.3 g/dL Normal 1.9-3.7 [facility] Comment on above: Performed By: #### C MP, CBC #### [facility] [address] [place], [place] [id number] Glucose [Mass/Vol] 216 mg/dL High 65-99 [facility] Comment on above: Result Comment: For FASTING Glucose --- ADA reference ranges: Normal 65-99 mg/dl Prediabetes 100-125 Diabetes >/= 126 Performed By: #### C MP, CBC #### [facility] [address] [place], [place] [id number] Potassium [Moles/Vol] 4.9 mmol/L Normal 3.5-5.5 [facility] Comment on above: Performed By: #### C MP, CBC #### [facility] [address], [place] [id number] Protein [Mass/Vol] 5.7 g/dL Low 6.1-8.1 [facility] Comment on above: Performed By: #### C MP, CBC #### [facility] [address], [place] [id number] Sodium [Moles/Vol] 143 mmol/L Normal 135-146 [facility] Comment on above: Performed By: #### C MP, CBC #### [facility] [address], [place] [id number] TBIL <0.3 Normal [facility] Comment on above: Performed By: #### C MP, CBC #### [facility] [address] [place], [place] [id number] Urea nitrogen [Mass/Vol] 33 mg/dL High 7-25 [facility] Comment on above: Performed By: #### C MP, CBC #### [facility] [address] [place], [place] [id number] Q - B-TYPE NATRIURETIC (BNP) on 09-11-2021 Natriuretic peptide B (Bld) [Mass/Vol] 963 pg/mL High <100 [facility] Comment on above: Order Comment: [facility] performed at: [facility] [place], [address] [facility], [address] [place], [address], [employer] Records Clerk: Chon Manzano MD [facility] Collection Date/Time: [id number] [facility] Results Received Date/Time: [facility] Reported Date/Time: Result Comment: BNP levels increase with age in the general population with the highest values seen in individuals greater than 75 years of age. Reference: J. Am. Dylan. Cardiol. 2002; 40:976-982. Performed By: #### 3 [id number] #### [facility] [address] [place] [address] Complete Blood Counton 06-26 Erythrocyte distribution width (RBC) [Ratio] 14.9 % Normal 11.0-15.0 [facility] Comment on above: Performed By: #### C BC, CMP #### [facility] [address] [place], [place] [id number] Hematocrit (Bld) [Volume fraction] 29.4 % Low 35.0-47.0 [facility] Comment on above: Performed By: #### C BC, CMP #### [facility] [address] [place], [place] [id number] Hemoglobin (Bld) [Mass/Vol] 9.3 g/dL Low 11.6-15.5 [facility] Comment on above: Performed By: #### C BC, CMP #### [facility] [address], [place] [id number] MCH (RBC) [Entitic mass] 29.3 pg Normal 27.0-33.0 [facility] Comment on above: Performed By: #### C BC, CMP #### [facility] [address] [place], [place] [id number] MCHC (RBC) [Mass/Vol] 31.6 g/dL Low 32.0-36.0 [facility] Comment on above: Performed By: #### C BC, CMP #### [facility] [address], [place] [id number] MCV (RBC) [Entitic vol] 93 fL Normal 80-100 [facility] Comment on above: Performed By: #### C BC, CMP #### [facility] [address], [place] [id number] Platelet mean volume (Bld) [Entitic vol] 9.60 fL Normal 7.50-12.50 [facility] Comment on above: Performed By: #### C BC, CMP #### [facility] [address] [place], [place] [id number] Platelets (Bld) [#/Vol] 228 10*3/uL Normal 140-400 [facility] Comment on above: Performed By: #### C BC, CMP #### [facility] [address] [place], [place] [id number] RBC (Bld) [#/Vol] 3.17 10*6/uL Low 3.90-5.20 [facility] Comment on above: Performed By: #### C BC, CMP #### [facility] [address] [place], [place] [id number] RDW-SD 51.3 fL High 37.0-50.0 [facility] Comment on above: Performed By: #### C BC, CMP #### [facility] [address], [place] [id number] WBC (Bld) [#/Vol] 7.9 10*3/uL Normal 3.8-11.0 [facility] Comment on above: Performed By: #### C BC, CMP #### [facility] [address] [place], [place] [id number] Comprehensive Metabolic Pane marky 06-26-2021 Albumin [Mass/Vol] 4.0 g/dL Normal 3.6-5.1 [facility] Comment on above: Performed By: #### C BC, CMP #### [facility] [address] [place], [place] [id number] Albumin/Globulin [Mass ratio] 1.4 {ratio} Normal 1.0-2.5 [facility] Comment on above: Performed By: #### C BC, CMP #### [facility] [address], [place] [id number] ALP [Catalytic activity/Vol] 69 U/L Normal 35-119 [facility] Comment on above: Performed By: #### C BC, CMP #### [facility] [address], [place] [id number] ALT [Catalytic activity/Vol] 18 U/L Normal 6-33 [facility] Comment on above: Result Comment: 04/02 Female reference range changed. Performed By: #### C BC, CMP #### [facility] [address], [place] [id number] Anion gap [Moles/Vol] 23 mmol/L High 12-20 [facility] Comment on above: Result Comment: Effe ctive 05/08/2019 reference range changed. Performed By: #### C BC, CMP #### [facility] [address], [place] [id number] AST [Catalytic activity/Vol] 18 U/L Normal 9-34 [facility] Comment on above: Performed By: #### C BC, CMP #### [facility] [address], [place] [id number] BUN/CREA 21 Ratio Normal 6-22 [facility] Comment on above: Performed By: #### C BC, CMP #### [facility] [address], [place] [id number] Calcium [Mass/Vol] 8.8 mg/dL Normal 8.6-10.2 [facility] Comment on above: Performed By: #### C BC, CMP #### [facility] [address] [place], [place] [id number] Chloride [Moles/Vol] 106 mmol/L Normal 98-107 [facility] Comment on above: Performed By: #### C BC, CMP #### [facility] [address], [place] [id number] CO2 [Moles/Vol] 18 mmol/L Low 20-31 [facility] Comment on above: Performed By: #### C BC, CMP #### [facility] [address] [place] [id number] Creatinine [Mass/Vol] 2.1 mg/dL High 0.6-1.4 [facility] Comment on above: Performed By: #### C BC, CMP #### [facility] [address] [place], [place] [id number] eGFRAA 29 mL/min/1.73m2 Low >60 [facility] Comment on above: Performed By: #### C BC, CMP #### [facility] [address] [facility] [place] [id number] eGFRNAA 24 mL/min/1.73m2 Low >60 [facility] Comment on above: Performed By: #### C BC, CMP #### [facility] [address] [place], [place] [id number] Globulin (S) [Mass/Vol] 2.8 g/dL Normal 1.9-3.7 [facility] Comment on above: Performed By: #### C BC, CMP #### [facility] [address] [place], [place] [id number] Glucose [Mass/Vol] 145 mg/dL High 65-99 [facility] Comment on above: Result Comment: For FASTING Glucose --- ADA reference ranges: Normal 65-99 mg/dl Prediabetes 100-125 Diabetes >/= 126 Performed By: #### C BC, CMP #### [facility] [address] [facility] [place] [id number] Potassium [Moles/Vol] 4.1 mmol/L Normal 3.5-5.5 [facility] Comment on above: Performed By: #### C BC, CMP #### [facility] [address] [facility] [place] [id number] Protein [Mass/Vol] 6.8 g/dL Normal 6.1-8.1 [facility] Comment on above: Performed By: #### C BC, CMP #### [facility] [address] [place], [place] [id number] Sodium [Moles/Vol] 142 mmol/L Normal 135-146 [facility] Comment on above: Performed By: #### C BC, CMP #### [facility] [address] [place], [place] [id number] TBIL <0.[address] [facility] Comment on above: Performed By: #### C BC, CMP #### [facility] [address] [place], [place] [id number] Urea nitrogen [Mass/Vol] 44 mg/dL High 7-25 [facility] Comment on above: Performed By: #### C BC, CMP #### [facility] [address] [place], [place] [id number] Complete Blood Counton 05-22 Erythrocyte distribution width (RBC) [Ratio] 14.4 % Normal 11.0-15.0 [facility] Comment on above: Performed By: #### C BC, CMP #### [facility] [address] [place], [place] [id number] Hematocrit (Bld) [Volume fraction] 31.3 % Low 35.0-47.0 [facility] Comment on above: Performed By: #### C BC, CMP #### [facility] [address] [place], [place] [id number] Hemoglobin (Bld) [Mass/Vol] 9.5 g/dL Low 11.6-15.5 [facility] Comment on above: Performed By: #### C BC, CMP #### [facility] [address] [place], [place] [id number] MCH (RBC) [Entitic mass] 28.7 pg Normal 27.0-33.0 [facility] Agriculture Intern Comment on above: Performed By: #### C BC, CMP #### [facility] [address], [place] [id number] MCHC (RBC) [Mass/Vol] 30.4 g/dL Low 32.0-36.0 Nor thern Weber Agriculture Intern Comment on above: Performed By: #### C BC, CMP #### [facility] [address], [place] [id number] MCV (RBC) [Entitic vol] 95 fL Normal 80-100 [facility] Comment on above: Performed By: #### C BC, CMP #### [facility] [address], [place] [id number] Platelet mean volume (Bld) [Entitic vol] 9.90 fL Normal 7.50-12.50 [facility] Comment on above: Performed By: #### C BC, CMP #### [facility] [address], [place] [id number] Platelets (Bld) [#/Vol] 275 10*3/uL Normal 140-400 [facility] Comment on above: Performed By: #### C BC, CMP #### [facility] [address], [place] [id number] RBC (Bld) [#/Vol] 3.31 10*6/uL Low 3.90-5.20 [facility] Comment on above: Performed By: #### C BC, CMP #### [facility] [address], [place] [id number] RDW-SD 49.4 fL Normal 37.0-50.0 [facility] Comment on above: Performed By: #### C BC, CMP #### [facility] [address], [place] [id number] WBC (Bld) [#/Vol] 11.2 10*3/uL High 3.8-11.0 [facility] Comment on above: Performed By: #### C BC, CMP #### [facility] [address], [place] [id number] Comprehensive Metabolic Pane marky 05-22-2021 Albumin [Mass/Vol] 3.9 g/dL Normal 3.6-5.1 [facility] Comment on above: Performed By: #### C BC, CMP #### [facility] [address], [place] [id number] Albumin/Globulin [Mass ratio] 1.3 {ratio} Normal 1.0-2.5 [facility] Comment on above: Performed By: #### C BC, CMP #### [facility] [address] [place], [place] [id number] ALP [Catalytic activity/Vol] 68 U/L Normal 35-119 [facility] Comment on above: Performed By: #### C BC, CMP #### [facility] [address] [place], [place] [id number] ALT [Catalytic activity/Vol] 16 U/L Normal 6-33 [facility] Comment on above: Result Comment: 04/02 Female reference range changed. Performed By: #### C BC, CMP #### [facility] [address] [place], [place] [id number] Anion gap [Moles/Vol] 21 mmol/L High 12-20 [facility] Comment on above: Result Comment: Effe ctive 05/08/2019 reference range changed. Performed By: #### C BC, CMP #### [facility] [address] [place], [place] [id number] AST [Catalytic activity/Vol] 20 U/L Normal 9-34 [facility] Comment on above: Performed By: #### C BC, CMP #### [facility] [address] [place], [place] [id number] BUN/CREA 16 Ratio Normal 6-22 [facility] Comment on above: Performed By: #### C BC, CMP #### [facility] [address] [place], [place] [id number] Calcium [Mass/Vol] 7.9 mg/dL Low 8.6-10.2 [facility] Comment on above: Performed By: #### C BC, CMP #### [facility] [address] [place], [place] [id number] Chloride [Moles/Vol] 102 mmol/L Normal 98-107 [facility] Comment on above: Performed By: #### C BC, CMP #### [facility] [address] [place], [place] [id number] CO2 [Moles/Vol] 26 mmol/L Normal 20-31 [facility] Comment on above: Performed By: #### C BC, CMP #### [facility] [address] [place], [place] [id number] Creatinine [Mass/Vol] 2.0 mg/dL High 0.6-1.4 [facility] Specialist Comment on above: Performed By: #### C BC, CMP #### [facility] [address], [place] [id number] eGFRAA 30 mL/min/1.73m2 Low >60 [facility] Comment on above: Performed By: #### C BC, CMP #### [facility] [address], [place] [id number] eGFRNAA 25 mL/min/1.73m2 Low >60 [facility] Comment on above: Performed By: #### C BC, CMP #### [facility] [address], [place] [id number] Globulin (S) [Mass/Vol] 3.1 g/dL Normal 1.9-3.7 [facility] Agriculture Intern Comment on above: Performed By: #### C BC, CMP #### [facility] [address], [place] [id number] Glucose [Mass/Vol] 57 mg/dL Low 65-99 [facility] Agriculture Intern Comment on above: Result Comment: For FASTING Glucose --- ADA reference ranges: Normal 65-99 mg/dl Prediabetes 100-125 Diabetes >/= 126 Performed By: #### C BC, CMP #### [facility] [address], [place] [id number] Potassium [Moles/Vol] 4.9 mmol/L Normal 3.5-5.5 [facility] Specialist Comment on above: Performed By: #### C BC, CMP #### [facility] [address], [place] [id number] Protein [Mass/Vol] 7.0 g/dL Normal 6.1-8.1 [facility] Agriculture Intern Comment on above: Performed By: #### C BC, CMP #### [facility] [address], [place] [id number] Sodium [Moles/Vol] 144 mmol/L Normal 135-146 [facility] Agriculture Intern Comment on above: Performed By: #### C BC, CMP #### [facility] [address] [place], [place] [id number] TBIL <0.[address] [facility] Comment on above: Performed By: #### C BC, CMP #### [facility] [address], [place] [id number] Urea nitrogen [Mass/Vol] 31 mg/dL High 7-25 [facility] Agriculture Intern Comment on above: Performed By: #### C BC, CMP #### [facility] [address], [place] [id number] Hemoglobin A1Con 05-22-[address] [facility] Comment on above: Performed By: #### A 1C #### [facility] [address], [place] [id number] HbA1c (Bld) [Mass fraction] 6.0 % Normal 4.0-6.0 [facility] Agriculture Intern Comment on above: Performed By: #### A 1C #### [facility] [address], [place] [id number] BASIC METABOLIC PANELon 08-02 Calcium 9.6 mg/dL Normal 8.6-10.3 [facility] Comment on above: Performed By: #### 0 0071 ####[facility] [place] [address], [facility] Chloride 100 mmol/L Normal 98-107 [facility] Comment on above: Performed By: #### 0 0071 ####[facility] [place] [address], [facility] CO2 28 mmol/L Normal 21-31 [facility] Comment on above: Performed By: #### 0 0071 ####[facility] [place] [address], [facility] Creatinine 1.15 mg/dL Normal 0.60-1.20 [facility] Comment on above: Performed By: #### 0 0071 ####[facility] [place] [address], [facility] eGFR (black) 57 ml/min/1.73sq m Abnormal >60 [facility] Comment on above: Performed By: #### 0 0071 ####[facility] eGFR (non-black) 47 ml/min/1.73sq m Abnormal >60 [facility] Comment on above: Performed By: #### 0 0071 ####[address] Glucose mass conc 163 mg/dL High 70-100 [facility] Comment on above: Performed By: #### 0 0071 ####[address] Potassium molar conc 4.1 mmol/L Normal 3.5-5.1 [facility] Comment on above: Performed By: #### 0 0071 ####[address] Sodium 135 mmol/L Low 136-145 [facility] Comment on above: Performed By: #### 0 0071 ####[address] Urea nitrogen 17 mg/dL Normal 7-25 [facility] Comment on above: Performed By: #### 0 0071 ####[facility] CBC W/DIFFon 08-24-2017 ABS BASOPHILS 0.1 10*3/uL Normal 0.0-0.2 [facility] Comment on above: Performed By: #### 5 102 ####[facility] ABS IMM GRANS 0.1 10*3/uL Normal 0.0-0.2 [facility] Comment on above: Performed By: #### 5 3 ####[facility] [place] [address], [facility] Basophils Auto #/vol (Bld) 0.5 % Normal 0.0-1.0 [facility] Comment on above: Performed By: #### 5 0103 ####[facility] [place] [address], [facility] Eosinophils 0.4 10*3/uL Normal 0.0-0.5 [facility] Comment on above: Performed By: #### 5 0103 ####[facility] [place] [address], [facility] Eosinophils/100 leukocytes 3.5 % Normal 0.0-6.0 [facility] Comment on above: Performed By: #### 0103 ####[facility] [facility] Erythrocyte distribution width Auto Ratio (RBC) 14.2 % Normal 11.5-15.0 [facility] Comment on above: Performed By: #### 0103 ####[facility]3000 [facility].[address] Erythrocytes (RBC) 0 % Normal 0-0 [facility] Comment on above: Performed By: #### 5 3 ####[facility] Erythrocytes (RBC) 4.12 10*6/uL Normal 3.80-5.00 [facility] Comment on above: Performed By: #### 0103 ####[facility] Hematocrit (HCT) 37.1 % Normal 36.0-45.0 [facility] Comment on above: Performed By: #### 5 3 ####[facility] Hemoglobin mass conc (Bld) 12.3 g/dL Normal 12.0-15.0 [facility] Comment on above: Performed By: #### 5 0103 ####[facility] IMMATURE GRANS 0.4 % Normal 0.0-1.0 [facility] Comment on above: Performed By: #### 5 0103 ####[facility] Lymphocytes 5.1 10*3/uL High 1.2-4.0 [facility] Comment on above: Performed By: #### 5 0103 ####[place] [id number] [address] Lymphocytes/100 leukocytes 40.5 % Normal 20.0-45.0 [facility] Comment on above: Performed By: #### 5 0103 ####[facility] MCH 29.9 pg Normal 27.0-33.0 [facility] Comment on above: Performed By: #### 5 0103 ####[place] [address] [address] MCHC mass conc (RBC) 33.2 g/dL Normal 32.0-35.0 [facility] Comment on above: Performed By: #### 5 0103 ####[facility] MCV 90.0 fL Normal 82.0-98.0 [facility] Comment on above: Performed By: #### 5 3 ####[facility] Monocytes 0.9 10*3/uL Normal 0.1-1.0 [facility] Comment on above: Performed By: #### 5 3 ####[facility] [facility] [place] [address], [facility] MONOS 7.5 % Normal 5.0-12.0 [facility] Comment on above: Performed By: #### 5 0103 ####[facility] [facility] [place] [place] [address], [facility] Neutrophils 6.0 10*3/uL Normal 1.6-7.6 [facility] Comment on above: Performed By: #### 5 0103 ####[facility] [place] [address], [facility] Neutrophils/100 leukocytes 47.6 % Normal 40.0-72.0 [facility] Comment on above: Performed By: #### 5 0103 ####[address] [place] [address], [facility] PLAT CNT 239 10*3/uL Normal 150-400 [facility] Comment on above: Performed By: #### 5 0103 ####[facility] [facility] [place] [address], [facility] WBC (Leukocytes) 12.5 10*3/uL High 4.0-10.6 [facility] Comment on above: Performed By: #### 5 3 ####[address] ABDOMEN AND PELVIS WO CON TRASTon 08-24-2017 CT ABDOMEN AND PELVIS [facility]AST [facility] [place] [address] P atient Name: KATE HAGEN : 1950Sex: FAge: Race: WhiteMRN: [id number]. Location: 85Patient Status: DVisit #: [id number] Date: 08/24/2017 2:00:00 PMCompleted Date: 08/24/2017 04:18 PMRequesting Provider: KASANDRA BROWN Attending Provider: KASANDRA BROWN Report Copy To: SHAWN BARBER Signs & Symptoms: K43.2 Incisional hernia without obstruction or gangrene [id number]: AthenaComments: , , oral contrast only , , , Ordering Provider - KASANDRA BROWN MD , Rendering Provider - KASANDRA BROWN MD , Exam: CT ABDOMEN AND PELVIS WO CONTRASTAccession #: [id number] ======CT ABDOMEN AND PELVIS WO CONTRAST 08/24/2017 4:21 [...] atherosclerotic changes the abdominal aorta and branch circulation.Retroperitone um: Scattered retroperitoneal lymph nodes, without pathologic enlargement.Abdominal [...] findings. Electronically signed by:Colin Clemente. Transcribed by: [email or web address], User Resident: LUIS RUSHElectronically Signed by: COLIN CLEMENTE @ 08/25/2017 10:20 PMI personally read this/these film(s) with this resident Normal [facility] Comment on above: Order Comment: , , o ral contrast only , , , Ordering Provider - KASANDRA BROWN MD , Rendering Provider - KASANDRA BROWN MD , HEMOGLOBIN A1Con 08-24-2017 Glucose mass conc 146 mg/dL High 70-126 [facility] Comment on above: Performed By: #### 4 6495 ####[facility] Hemoglobin A1c/Hemoglobin.total mass fraction (Bld) 6.7 % High 4.0-6.0 [facility] Comment on above: Performed By: #### 4 6447 ####[facility] PROTHROMBIN TIMEon 8 INR Coag RelTime (PPP) 1.10 {INR} Normal 0.91-1.16 [facility] Comment on above: Result Comment: ACCC P RECOMMENDED INR FOR WARFARIN THERAPY CONDITION INRPROPHYLAXIS OF VENOUS THROMBOSIS 2-3(HIGH-RISK SURGERY)TREATMENT OF VENOUS THROMBOSIS 2-3TREATMENT OF PULMONARY EMBOLISM 2-3PREVENTION OF SYSTEMIC EMBOLISM: 2-3 ACUTE MYOCARDIAL INFARCTION TISSUE HEART VALVES VALVULAR HEART DISEASE ATRIAL FIBRILLATION RECURRENT SYSTEMIC EMBOLISMMECHANICAL HEART VALVE 2.5-3.5 FROM: ORAL ANTICOAGULANTS. MECHANISM OF ACTION, CLINICALEFFECTIVENESS, AND OPTIMAL THERAPEUTIC RANGE. [id number]. Performed By: #### 5 6109 ####[facility] [place] [address], [facility] Prothrombin time (PT) Coag time (PPP) 14.3 s Normal 12.3-14.8 [facility] Comment on above: Result Comment: ALL RESULTS MUST BE INTERPRETED WITH RESPECT TO BLOOD DRAWING ARTIFACTOR DILUTION ERROR OF ANTICOAGULANT AT THE TIME OF SAMPLING. Performed By: #### 5 6101 ####[facility] [facility].[address] Social History Date Type Detail Facility Start: 05-19-2023 End: 09-08-2023 Alcohol intake Ex-drinker (finding) [facility] Start: 05-13-2023 Tobacco smoking stat us [facility] Start: 03-30-2023 Gender identity Identifies as female gender (finding) [facility] Work Phone: Start: 03-30-2023 Sexual orientation Heterosexual (fin ding) [facility] Work Phone: Start: 03-30-2023 End: 09-08-2023 Sex Assigned At [employer] Other Start: 03-30-2023 End: 09-08-2023 Caffeine use Caffeine use [facility] Comment on above: 2 cups coffee daily most of the time; 1/2 ppd; Start: 03-30-2023 End: 04-19-2023 Tobacco smoking status NHIS Smokes tobacco daily [facility] Start: 03-30-2023 End: 05-13-2023 Tobacco use and exposure Smokeless tobacco non-user [facility] Work Phone: Start: 03-30-2023 Alcohol intake Lifetime non-d jeffy (finding) [facility] Work Phone: Start: 03-20-2023 End: 07-26-2023 Exposure to SARS-CoV-2 (event) Not sure [facility] Start: 12-29-2022 End: 09-07-2023 Tobacco smoking status Heavy tobacco smoker (finding) [facility] Start: 11-18-2022 End: 11-19-2022 Tobacco smoking status NHIS Smoker (finding) [facility] Start: 12-31-2021 Tobacco smoking status Light t obacco smoker (finding) [facility] Start: 1950 Sex Assigned At Female [facility] Start: 1950 Sex Assigned At Not on file [facility] Tobacco smoking status Never [facility] History of tobacco use Cigarette Smoker [facility] Work Phone: Within the last year , have you been afraid of your partner or ex-partner? No [facility] Are you now , , , , never or living with a partner? [facility] How often to you hav e a drink containing alcohol? Never [facility] How hard is it for y ou to pay for the very basics like food, housing, medical care, and heating Somewhat hard [facility] Do you feel stress - tense, restless, nervous, or anxious, or unable to sleep at night because your mind is troubled all the time - these days [OSQ] To some extent [facility] (I/We) worried wheth er (my/our) food would run out before (I/we) got money to buy more. Never true [facility] Are you now , , , , never or living with a partner? Refused [facility] (I/We) worried wheth er (my/our) food would run out before (I/we) got money to buy more. DK or Refused [facility] Vital Signs Date Time Vital Sign Value Performing Clinician Facility 09-07-2023 15:24-0400 Blood Pressure Location rag & bone [facility] 09-07-2023 15:24-0400 Body temperature 98.06 [degF] [employer] [facility] 09-07-2023 15:24-0400 Diastolic blood pressure 62 mm[Hg] [employer] [facility] 09-07-2023 15:24-0400 Heart rate 78 /min Shaye Orzech [facility] 09-07-2023 15:24-0400 Respiratory rate 16 /min Shaye Orzech [facility] 09-07-2023 15:24-0400 Systolic blood pressure 125 mm[Hg] Shaye Orzech [facility] 07-26-2023 14:20-0400 Body height 152.4 cm Annika Kaba [employer]UST[employer] Work Phone: [facility] 07-26-2023 14:20-0400 Body mass index (BMI) [Ratio] 25.78 kg/m2 Annika Kaba [employer]USTRI[employer] TRA[employer] Work Phone: [facility] 07-26-2023 14:20-0400 Body weight 59.88 kg Annika Kaba [employer]INDUSTRIAL TRAINER Work Phone: [facility] 07-26-2023 14:20-0400 Diastolic blood pressure 56 mm[Hg] Annika Kaba [employer]INDUSTRIAL TRAINER Work Phone: [facility] 07-26-2023 14:20-0400 Heart rate 72 /min Annika Kaba [employer]INDUSTRIAL TRAINER Work Phone: [facility] 07-26-2023 14:20-0400 Systolic blood pressure 106 mm[Hg] Annika Kaba [employer]INDUSTRIAL TRAINER Work Phone: [facility] 04-29-2023 14:24-0500 Body height 152.[address] 04-29-2023 14:24-0500 Body mass index (BMI) [Ratio] 31.25 kg/m2 [address] 04-29-2023 14:24-0500 Body weight 72.[address] 04-29-2023 14:24-0500 Diastolic blood pressure 64 mm[Hg] [address] 04-29-2023 14:24-0500 Systolic blood pressure 122 mm[Hg] [address] 04-28-2023 09:43-0500 Body temperature 96.98 [degF] Jacqui Lue [facility] 04-28-2023 09:43-0500 Diastolic blood pressure 86 mm[Hg] Jacqui Lue [facility] 04-28-2023 09:43-0500 Heart rate 74 /min Jacqui Lue [facility] 04-28-2023 09:43-0500 Systolic blood pressure 124 mm[Hg] Jacqui Lue [facility] 03-30-2023 13:55-0500 Body height 152.4 cm Annika Kaba [employer]INDUSTRIAL TRAINER Work Phone: [facility] 03-30-2023 13:55-0500 Body mass index (BMI) [Ratio] 31.25 kg/m2 Annika Kaba [employer]INDUSTRIAL TRAINER Work Phone: [facility] 03-30-2023 13:55-0500 Body weight 72.58 kg Annika Kaba [employer]INDUSTRIAL TRAINER Work Phone: [facility] 03-30-2023 13:55-0500 Diastolic blood pressure 60 mm[Hg] Aninka Kaba [employer]INDUSTRIAL TRAINER Work Phone: [facility] 03-30-2023 13:55-0500 Heart rate 70 /min Annika Kaba [employer]INDUSTRIAL TRAINER Work Phone: [facility] 03-30-2023 13:55-0500 Systolic blood pressure 128 mm[Hg] Annika Kaba [employer]INDUSTRIAL TRAINER Work Phone: [facility] 02-03-2023 09:07-0400 Blood Pressure Location Jacqui Lue [facility] 02-03-2023 09:07-0400 Diastolic blood pressure 74 mm[Hg] Jacqui Lue [facility] 02-03-2023 09:07-0400 Heart rate 68 /min Jacqui Lue [facility] 02-03-2023 09:07-0400 Respiratory rate 16 /min Jacqui Lue [facility] 02-03-2023 09:07-0400 Systolic blood pressure 120 mm[Hg] Jacqui Lue [facility] 12-29-2022 14:17-0400 Blood Pressure Location INES DANN [facility] 12-29-2022 14:17-0400 Diastolic blood pressure 70 mm[Hg] INES DANN [facility] 12-29-2022 14:17-0400 Heart rate 70 /min INES DANN [facility] 12-29-2022 14:17-0400 Respiratory rate 16 /min INES DANN [facility] 12-29-2022 14:17-0400 Systolic blood pressure 132 mm[Hg] INES DANN [facility] 12-28-2022 14:33-0400 Body height 152.4 cm Shawn B Barber Work Phone: [facility] [place] [address] DO Work Phone: 12-28-2022 14:33-0400 Body mass index (BMI) [Ratio] 29.49 kg/m2 Shawn Michel Barber Work Phone: [facility] [place] 250 DO Work Phone: 12-28-2022 14:33-0400 Body surface area Derived from formula 1.66 m2 Shawn Pearson Barber Work Phone: [facility] [place] 250 DO Work Phone: 12-28-2022 14:33-0400 Body weight 68.49 kg Shawn Pearson Sunil Work Phone: [facility] 250 DO Work Phone: 12-28-2022 14:33-0400 Diastolic blood pressure 44 mm[Hg] Shawn Pearson Sunil Work Phone: [facility] 250 DO Work Phone: 12-28-2022 14:33-0400 Heart rate 76 /min Shawn Pearson Sunil Work Phone: [facility] [place] 250 DO Work Phone: 12-28-2022 14:33-0400 Systolic blood pressure 80 mm[Hg] Shawn Pearson Sunil Work Phone: [facility] [place] 250 DO Work Phone: 12-28-2022 14:33-0400 11 1 Shawncris Barber Work Phone: [facility] DO Work Phone: Comment on above: PHQ-9 TS 11-21-2022 16:00-0400 Inhaled oxygen flow rate 4 L/min II Shawn Barber Work Phone: [facility] 11-21-2022 15:53-0400 Heart rate 65 /min II Shawn Sunil Work Phone: [facility] 11-21-2022 15:53-0400 Respiratory rate 20 /min II Shawn Barber Work Phone: [facility] 11-21-2022 12:00-0400 Diastolic blood pressure 79 mm[Hg] II Shawn Barber Work Phone: [facility] 11-21-2022 12:00-0400 SaO2% (BldA) [Mass fraction] 93 % II Shawn Barber Work Phone: [facility] 11-21-2022 12:00-0400 Systolic blood pressure 149 mm[Hg] II Shawn Barber Work Phone: [facility] 11-21-2022 08:30-0400 Body temperature 97.9 [degF] II Shawn Barber Work Phone: [facility] 11-21-2022 06:00-0400 Body weight 74 kg II Shawn Barber Work Phone: [facility] 11-19-2022 09:40-0400 Body height 152.4 cm II Shawn Barber Work Phone: [facility] 11-18-2022 19:23-0400 Diastolic blood pressure 88 mm[Hg] II Shawn Barber Work Phone: [facility] 11-18-2022 19:23-0400 Heart rate 82 /min II Shawn Barber Work Phone: [facility] 11-18-2022 19:23-0400 Inhaled oxygen flow rate 3 L/min II Shawn Barber Work Phone: [facility] 11-18-2022 19:23-0400 Respiratory rate 18 /min II Shawn Barber Work Phone: [facility] [facility] 11-18-2022 19:23-0400 SaO2% (BldA) [Mass fraction] 96 % II Shawn Barber Work Phone: [facility] 11-18-2022 19:23-0400 Systolic blood pressure 194 mm[Hg] II Shawn Barber Work Phone: [facility] 11-18-2022 16:13-0400 Body height 152.4 cm II Shawn Barber Work Phone: [facility] 11-18-2022 16:13-0400 Body temperature 98.3 [degF] II Shawn Barber Work Phone: [facility] 11-18-2022 16:13-0400 Body weight 75.29 kg II Shawn Barber Work Phone: [facility] 08-27-2022 16:00-0400 Body height 152.4 cm Ziggy Charlie Other [employer] Other 08-27-2022 16:00-0400 Body mass index (BMI) [Ratio] 34.8 kg/m2 Ziggy Charlie Other [employer] Other 08-27-2022 16:00-0400 Body temperature 97.5 [degF] Ziggy Charlie Other [employer] Other 08-27-2022 16:00-0400 Body weight 80.83 kg Ziggy Charlie Other [employer] Other 08-27-2022 16:00-0400 Diastolic blood pressure 70 mm[Hg] Ziggy Charlie Other [employer] Other 08-27-2022 16:00-0400 Respiratory rate 18 /min Ziggy Charlie Other [employer] Other 08-27-2022 16:00-0400 SaO2% (BldA) [Mass fraction] 91 % Ziggy Charlie Other [employer] Other 08-27-2022 16:00-0400 Systolic blood pressure 124 mm[Hg] Ziggy Charlie Other [facility] [employer] Other 07-29-2022 09:08-0400 Blood Pressure Location Jacqui Lue [facility] 07-29-2022 09:08-0400 Diastolic blood pressure 89 mm[Hg] Jacqui Lue [facility] 07-29-2022 09:08-0400 Heart rate 66 /min Jacqui Lue [facility] 07-29-2022 09:08-0400 Systolic blood pressure 131 mm[Hg] Jacqui Lue [facility] 06-10-2022 10:24-0500 Blood Pressure Location Jacqui Lue [facility] 06-10-2022 10:24-0500 Diastolic blood pressure 80 mm[Hg] Jacqui Lue [facility] 06-10-2022 10:24-0500 Heart rate 77 /min Jacqui Lue [facility] 06-10-2022 10:24-0500 Systolic blood pressure 130 mm[Hg] Jacqui Lue [facility] 02-16-2022 13:05-0400 Blood Pressure Location Montero SALAM [facility] 02-16-2022 13:05-0400 Diastolic blood pressure 76 mm[Hg] Montero SALAM [facility] 02-16-2022 13:05-0400 Heart rate 68 /min Montero SALAM [facility] 02-16-2022 13:05-0400 Respiratory rate 30 /min Montero SALAM [facility] 02-16-2022 13:05-0400 SaO2% (BldA) [Mass fraction] 98 % Montero SALAM [facility] 02-16-2022 13:05-0400 Systolic blood pressure 142 mm[Hg] Montero SALAM [facility] 02-16-2022 13:00-0400 Respiratory rate 25 /min Montero SALAM [facility] 02-16-2022 13:00-0400 Systolic blood pressure 127 mm[Hg] Montero SALAM [facility] 02-16-2022 12:55-0400 Diastolic blood pressure 71 mm[Hg] Montero SALAM [facility] 02-16-2022 12:55-0400 Heart rate 70 /min Montero SALAM [facility] 02-16-2022 12:55-0400 Respiratory rate 27 /min Montero SALAM [facility] 02-16-2022 12:55-0400 SaO2% (BldA) [Mass fraction] 97 % Montero SALAM [facility] 02-16-2022 12:55-0400 Systolic blood pressure 119 mm[Hg] Montero SALAM [facility] 02-16-2022 12:42-0400 Body temperature 96.98 [degF] Montero SALAM [facility] 02-16-2022 10:46-0400 Body temperature 96.8 [degF] Monteromariah PYLEAM [facility] 12-31-2021 14:58-0400 Diastolic blood pressure 80 mm[Hg] Lanidariela HowardLisy [facility] 12-31-2021 14:58-0400 Mean blood pressure 100 mm[Hg] Lanidariela HowardLisy [facility] 12-31-2021 14:58-0400 Systolic blood pressure 140 mm[Hg] Lanidariela HowardLisy [facility] 12-31-2021 14:54-0400 Blood Pressure Location Lanidariela HowardLisy [facility] 12-31-2021 14:54-0400 Body temperature 97.7 [degF] Lani Howardmetz [facility] 12-31-2021 14:54-0400 Diastolic blood pressure 77 mm[Hg] Lanidariela HowardLisy [facility] 12-31-2021 14:54-0400 Heart rate 69 /min Lani Howardmetz [facility] 12-31-2021 14:54-0400 Systolic blood pressure 144 mm[Hg] Lanidariela HowardLisy [facility] 12-13-2021 11:05-0400 Body weight 79.56 kg Smiley Davila Other [employer] Other 12-13-2021 11:05-0400 Diastolic blood pressure 70 mm[Hg] Smiley Davila Other [employer] Other 12-13-2021 11:05-0400 Respiratory rate 18 /min Smiley Davila Other [facility] [employer] Other 12-13-2021 11:05-0400 SaO2% (BldA) [Mass fraction] 94 % Smiley Davila Other [facility] [employer] Other 12-13-2021 11:05-0400 Systolic blood pressure 129 mm[Hg] Smiley Davila Other [facility] [employer] Other Functional Status Date Assessment Result Facility 09-07-2023 Functional Status N/A [facility] 04-28-2023 Functional Status N/A [facility] 02-12-2023 Functional Status N/A [facility] 02-03-2023 Functional Status N/A [facility] 12-29-2022 Functional Status N/A [facility] 11-21-2022 Functional status Patient at Baseline [facility] Work Phone: 07-29-2022 Functional Status N/A [facility] 06-10-2022 Functional Status N/A [facility] 02-16-2022 Functional Status N/A [facility] 12-31-2021 Functional Status N/A [facility] Mental Status Date Assessment Result Facility 11-21-2022 Cognitive function Cognitive Sta tus Patient at Baseline [facility] Work Phone: Clinical Notes 04-02-2021 to 09-10-2023 Patient Colt Terry DO - 09/08/2023 1:18 PM Meng Galloway DMD, MD - 08/23/2023 8:35 AM Emma Yates DDS - 08/18/2023 10:24 PM EDTPatient InstructionsPatient Instructions Note Date & Type Note Facility 09-10-2023 Note PROCEDURE: Without IV contrast, axial helical 5 mm slice thickness images of the chest performed. FINDINGS: No suspicious lung nodule or mass. Several millimeter left perihilar calcified granuloma. Several mm noncalcified pleural plaques right both posterior midlung regions. No aggressive pleural-based mass. No pleural or pericardial effusion. Low-volume nonspecific paratracheal lymph nodes. No axillary lymphadenopathy. Upper abdominal images demonstrate bilateral adrenal gland masses, not fully visualized on this exam, right measuring 4.8 x 3.8 cm. No ascites. IMPRESSION: 1. No evidence of a primary intrathoracic malignancy, non-calcified pleural plaques, remote rib fractures no significant lymphadenopathy. 2. Bilateral adrenal gland masses not fully visualized on this exam no prior exams for comparison/stability. If this represents a new finding recommend abdomen pelvis CT imaging for further characterization (adrenal gland protocol) and to evaluate for evidence of a primary intra-abdominal/pelvic malignancy. TRANSCRIBED BY: ELECTRONICALLY SIGNED BY: Perez Gamble MD Not Available 09-08-2023 Instructions Colt Live DO - 09/08/2023 1:25 PM EDT You are doing excellent. Return to see me at 1 year from surgery documented in this encounter [facility] 09-08-2023 History of Present illness Narrative Patient seen examined. She is doing quite well. Ambulating with a walker. He is getting fitted for an AFO for her chronic footdrop. He is working towards a cane when she gets the AFO. On exam incisions well healed without signs of infection. No pain with range of motion of the hip. Radiographically AP pelvis well as AP and lateral radiographs the patient's right hip and femur display maintained position the patient's proximal femur fracture with intact implants. The fracture appears united and all cortices. Discussed with the patient and her family that she is doing quite well. Recommend she follow up at 1 year from surgery. She was certainly welcome to return sooner if having any difficulties. All of her questions were answered. documented in this encounter [facility] 08-23-2023 History of Present illness Narrative Teaching Physician Note: I saw and evaluated the patient. I personally obtained the kim and critical portions of the history and physical exam. I reviewed the resident's documentation and discussed the patient with the resident. I agree with the resident's medical decision making as documented in the resident's note. Left condylar head fracture shows no change in position on panoramic imaging today. Occlusion is stable with dentures, and KEN is 40mm without pain. No operative intervention required given appropriate judaism of function. Follow up with dentistry for denture adjustment. Meng Leos DMD, MD [facility] SURGERY CLINIC FOLLOW UP VISIT Chief Complaint: Pt presents for follow up. History of present illness: 72 yrs old White female 14 weeks s/p Fracture of left side of mandible and TMJ (dislocation of temporomandibular joint). Patient's chief complaint: aphthous ulcer on left side of mandibular ridge (lingually) causing difficulty in using dentures and chewing. Review of Systems: no change Physical findings: aphthous ulcer on left side of mandibular ridge (lingually) No purulence or erythema noted No signs or symptoms of infection Maximum interincisal opening is 30mm No V3 hypoesthesia Neurosensory testing reveals: appropriate reaction Occlusion stable and reproducible Patient reports pain in left TMJ from time to time, but pin is tolerable and sporadic. Panoramic xray taken and visible left condylar head fracture. Procedure: Due to lack of acrylic bur and instruments to correct denture in our [facility] clinic, no denture adjustments were made today. Patient is properly healing. Assessment / Diagnosis: Edentulous [[id number]] Normal post operative course Normal postoperative course. Healing as expected. Dr. Meng Leos clinically assessed and spoke with the patient. Plan: Recommended to patient to present to general dentistry clinic for denture adjustment in the region of aphthous ulcer (due to slight mandibular shift), although occlusion is correct. Furthermore, it would be beneficial to have new dentures fabricated due to change in mandibular position. Referral for general dentistry was placed for patient and instruction were given. Patient instructed to follow up if new or worsening symptoms appear. Emma Zamudio DDS Images from the original note were not included. documented in this encounter [facility] 08-18-2023 History of Present illness Narrative [facility] SURGERY CLINIC FOLLOW UP VISIT Chief Complaint: Pt presents for follow up. History of present illness: 72 yrs old White female 14 weeks s/p Fracture of left side of mandible and TMJ (dislocation of temporomandibular joint). Patient's chief complaint: aphthous ulcer on left side of mandibular ridge (lingually) causing difficulty in using dentures and chewing. Review of Systems: no change Physical findings: aphthous ulcer on left side of mandibular ridge (lingually) No purulence or erythema noted No signs or symptoms of infection Maximum interincisal opening is 30mm No V3 hypoesthesia Neurosensory testing reveals: appropriate reaction Occlusion stable and reproducible Patient reports pain in left TMJ from time to time, but pin is tolerable and sporadic. Panoramic xray taken and visible left condylar head fracture. Procedure: Due to lack of acrylic bur and instruments to correct denture in our [facility] clinic, no denture adjustments were made today. Patient is properly healing. Assessment / Diagnosis: Edentulous [[id number]] Normal post operative course Normal postoperative course. Healing as expected. Dr. Meng Leos clinically assessed and spoke with the patient. Plan: Recommended to patient to present to general dentistry clinic for denture adjustment in the region of aphthous ulcer (due to slight mandibular shift), although occlusion is correct. Furthermore, it would be beneficial to have new dentures fabricated due to change in mandibular position. Referral for general dentistry was placed for patient and instruction were given. Patient instructed to follow up if new or worsening symptoms appear. Emma Zamudio DDS Images from the original note were not included. documented in this encounter [facility] 07-27-2023 Evaluation + Plan note Associated Problem(s): Stage 3 chronic kidney disease (CMS/HCC) They have not followed up recently with Dr. Dean At one point her creatinine right about 4.2, May 2023 creatinine 2.06 [facility] Work Phone: 07-27-2023 Evaluation + Plan note Associated Problem(s): BMI 25.0-25.9,adult Her weight is down approximately 30 pounds. She relates this to recent mandibular fracture and difficulty with dentures. [facility] Work Phone: 07-27-2023 Miscellaneous Notes Associated Problem(s): Stage 3 chronic kidney disease (CMS/HCC) They have not followed up recently with Dr. Dean At one point her creatinine right about 4.2, May 2023 creatinine 2.06 Associated Problem(s): BMI 25.0-25.9,adult Her weight is down approximately 30 pounds. She relates this to recent mandibular fracture and difficulty with dentures. Associated Problem(s): Anticoagulated CHADS VASc 4 Currently on full dose Eliquis. Recent 30 pound weight loss puts her weight at 60 kg, discharge creatinine 2.0 Will reduce to Eliquis 2.5 mg twice daily She denies bleeding diatheses Had 1 accidental fall, denies recurrent episode. Briefly introduced Watchman device Associated Problem(s): Essential hypertension Optimal in office Associated Problem(s): Hyperlipidemia Moderate intensity statin Associated Problem(s): Pulmonary hypertension (CMS/HCC) October 2022 TTE RVSP 84 mmHg She denies any prior PE, has longstanding tobacco abuse, chronic hypoxia and COPD May 2023 TTE RVSP 60 mmHg RV function size reported to be normal Associated Problem(s): Abnormal echocardiogram May 2023 TTE LVEF 75% Aortic valve area 1.2 cm RVSP 60 mmHg Associated Problem(s): A-fib (CMS/HCC) PAF May 2023 discharge summary documents inpatient afib with RVR - spontaneous conversion RRR in office today No prior antiarrhythmic No MR Associated Problem(s): Aortic stenosis October 2022 TTE Aortic Stenosis p46;m26 May 2023 TTE Aortic stenosis p28:m15 JUDITH 1.2 centimeter squared Associated Problem(s): Current smoker 'can take it or leave it' Did ok while in SNF Currently 5 per day Continued every day tobacco use. Have reviewed the negative cardiovascular impact of nicotine. Continues to decline pharmacological assistance. documented in this encounter [facility] Work Phone: 07-27-2023 Evaluation + Plan note Associated Problem(s): Anticoagulated CHADS VASc 4 Currently on full dose Eliquis. Recent 30 pound weight loss puts her weight at 60 kg, discharge creatinine 2.0 Will reduce to Eliquis 2.5 mg twice daily She denies bleeding diatheses Had 1 accidental fall, denies recurrent episode. Briefly introduced Watchman device [facility] Work Phone: 07-27-2023 Evaluation + Plan note Associated Problem(s): Essential hypertension Optimal in office [facility] Work Phone: 07-27-2023 Evaluation + Plan note Associated Problem(s): Hyperlipidemia Moderate intensity statin [facility] Work Phone: 07-27-2023 Evaluation + Plan note Associated Problem(s): Pulmonary hypertension (CMS/HCC) October 2022 TTE RVSP 84 mmHg She denies any prior PE, has longstanding tobacco abuse, chronic hypoxia and COPD May 2023 TTE RVSP 60 mmHg RV function size reported to be normal [facility] Work Phone: 07-27-2023 Evaluation + Plan note Associated Problem(s): Abnormal echocardiogram May 2023 TTE LVEF 75% Aortic valve area 1.2 cm RVSP 60 mmHg [facility] Work Phone: 07-27-2023 Evaluation + Plan note Associated Problem(s): A-fib ([facility]) PAF May 2023 discharge summary documents inpatient afib with RVR - spontaneous conversion RRR in office today No prior antiarrhythmic No MR [facility] Work Phone: 07-27-2023 Evaluation + Plan note Associated Problem(s): Aortic stenosis October 2022 TTE Aortic Stenosis p46;m26 May 2023 TTE Aortic stenosis p28:m15 JUDITH 1.2 centimeter squared [facility] Work Phone: 07-26-2023 Evaluation + Plan note Associated Problem(s): Current smoker 'can take it or leave it' Did ok while in SNF Currently 5 per day Continued every day tobacco use. Have reviewed the negative cardiovascular impact of nicotine. Continues to decline pharmacological assistance. [facility] Work Phone: 07-26-2023 History of Present illness Narrative Chief Complaint I am getting along Reason for Visit Patient presents to the office today for outpatient follow-up for hospital follow-up. Last evaluated in clinic by myself March 2023. In December 2022 patient transferred care to [facility]. I still have not been able to obtain prior cardiology records. They deny any prior IA or cardiac catheterization, report prior stress testing. In the meantime have been able to document meant paroxysmal atrial fibrillation and aortic stenosis. Presents today and wheeled walker with oxygen on. Accompanied by child In May 2023 patient had a mechanical fall with hip and mandibular fracture. During that hospitalization they document atrial fibrillation, inpatient echo LVEF 75% with aortic valve area 1.2 cm . I believe she spent 30 days at a comprehensive rehabilitation program, reportedly has been home for approximately 1 month. History of Present Illness Remains an extremely pleasant 72-year-old female, but she and her daughter remain unclear as to her prior cardiovascular history and are somewhat difficult historians. She reestablished care with [facility] during summer 2022. Have not been able to get [facility]ology records. They deny any prior cardiac cath or IA but do report prior stress testing. I have not been able to document paroxysmal atrial fibrillation and she remains anticoagulated, no prior antiarrhythmic. Aortic stenosis in the mild/moderate range. She has severe pulmonary hypertension due to underlying pulmonary disease. She reports a accidental fall due to foot drop, and is currently trying to obtain some orthopedic devices. She is in a wheelchair today for ease of transport, does utilize a walker at home. She denies recurrent falls. She reports being symptomatic in atrial fibrillation with feeling had sweating and denies any type of recurrent symptoms. Remains compliant with anticoagulation. Her weight is down 30 pounds that she relates to recent mandibular fracture and difficulty with her dentures. She has chronic hypoxia, continuous O2 usage. Denies orthopnea or PND. No evidence of right-sided volume overload. Patient reports that overall has no complaint(s) of chest pain, chest pressure/discomfort, claudication, dyspnea, exertional chest pressure/discomfort, irregular heart beat, and lower extremity edema Review of Systems Cardiovascular: Negative for chest pain, dyspnea on exertion, irregular heartbeat, leg swelling, near-syncope, orthopnea, palpitations, paroxysmal nocturnal dyspnea and syncope. Visit Vitals BP 106/56 (BP Location: Right arm, Patient Position: Sitting) Pulse 72 Ht 1.524 m (5') Wt 59.9 kg (132 lb) BMI 25.78 kg/m Smoking Status Every Day BSA 1.59 m Physical Exam Vitals and nursing note reviewed. HENT: Head: Normocephalic. Cardiovascular: Rate and Rhythm: Normal rate and regular rhythm. Heart sounds: Murmur heard. Systolic murmur is present with a grade of 2/6. Pulmonary: Effort: Pulmonary effort is normal. Breath sounds: Normal breath sounds. Abdominal: Palpations: Abdomen is soft. Musculoskeletal: Right lower leg: No edema. Left lower leg: No edema. Skin: General: Skin is warm and dry. Neurological: General: No focal deficit present. Mental Status: She is alert. Psychiatric: Mood and Affect: Mood normal. Behavior: Behavior normal. No Known Allergies Current Outpatient Medications Medication Instructions albuterol 2.5 mg, nebulization ALPRAZolam XR (XANAX XR) 1 mg, oral, Daily PRN, Do not crush, chew, or split. apixaban (ELIQUIS) 2.5 mg, oral, 2 times daily atorvastatin (LIPITOR) 20 mg, oral, Daily brexpiprazole (REXULTI) 1 mg, oral, Daily bumetanide (BUMEX) 2 mg, oral, Daily calcium carbonate (Tums) 200 mg calcium chewable tablet 1 tablet, oral, Daily cyclobenzaprine (FLEXERIL) 10 mg, oral, 3 times daily PRN dapagliflozin propanediol (FARXIGA) 10 mg, oral estradiol (Estrace) 0.01 % (0.1 mg/gram) vaginal cream 2 times weekly FLUoxetine (PROZAC) 40 mg, oral, Daily fluticasone propion-salmeteroL (Advair Diskus) 250-50 mcg/dose diskus inhaler 1 puff, inhalation, 2 times daily RT, Rinse mouth with water after use to reduce aftertaste and incidence of candidiasis. Do not swallow. HYDROcodone-acetaminophen ([place]) 5-325 mg tablet 1 tablet, oral levETIRAcetam (KEPPRA) 500 mg, oral, 2 times daily magnesium oxide (MAG-OX) 400 mg, 2 times daily metOLazone (ZAROXOLYN) 2.5 mg, oral, Daily metoprolol tartrate (LOPRESSOR) 50 mg, oral, 2 times daily omeprazole (PRILOSEC) 40 mg, oral, 2 times daily ondansetron (Zofran) 4 mg tablet 1 tablet, oral, Every 8 hours PRN oxygen (O2) gas therapy 1 each, inhalation, Continuous promethazine (PHENERGAN) 25 mg, oral, Every 6 hours PRN tiZANidine (ZANAFLEX) 4 mg, oral, 3 times daily PRN Trulicity 0.75 mg, subcutaneous, Weekly Assessment: Current smoker 'can take it or leave it' Did ok while in SNF Currently 5 per day Continued every day tobacco use. Have reviewed the negative cardiovascular impact of nicotine. Continues to decline pharmacological assistance. Aortic stenosis October 2022 TTE Aortic Stenosis p46;m26 May 2023 TTE Aortic stenosis p28:m15 JUDITH 1.2 centimeter squared A-fib ([facility]) PAF May 2023 discharge summary documents inpatient afib with RVR - spontaneous conversion RRR in office today No prior antiarrhythmic No MR Abnormal echocardiogram May 2023 TTE LVEF 75% Aortic valve area 1.2 cm RVSP 60 mmHg Pulmonary hypertension ([facility]) October 2022 TTE RVSP 84 mmHg She denies any prior PE, has longstanding tobacco abuse, chronic hypoxia and COPD May 2023 TTE RVSP 60 mmHg RV function size reported to be normal Hyperlipidemia Moderate intensity statin Essential hypertension Optimal in office Anticoagulated CHADS VASc 4 Currently on full dose Eliquis. Recent 30 pound weight loss puts her weight at 60 kg, discharge creatinine 2.0 Will reduce to Eliquis 2.5 mg twice daily She denies bleeding diatheses Had 1 accidental fall, denies recurrent episode. Briefly introduced Watchman device BMI 25.0-25.9,adult Her weight is down approximately 30 pounds. She relates this to recent mandibular fracture and difficulty with dentures. Stage 3 chronic kidney disease ([facility]) They have not followed up recently with Dr. Dean At one point her creatinine right about 4.2, May 2023 creatinine 2.06 Plan: Through informed decision making process incorporating patients unique circumstances, the following treatment plan will be initiated: 1. Prescription drug management of cardiovascular medication for efficacy, adherence to treatment, side effect assessment and polypharmacy. Current treatment clinically warranted and to continue with following modifications: - Reduce Eliquis 2.5mg twice daily 2. Labs (chem6) 3. Return for follow-up; in the interim, contact the office if new symptoms arise. BALE STACKER 6 months Annika Kaba MSN, TORPEDO MAN-INDUSTRIAL TRAINER, PMHNP-[facility] Please excuse any errors in grammar or translation related to this dictation. Voice recognition software was utilized to prepare this document. documented in this encounter [facility] Work Phone: 07-26-2023 Instructions NATALIE Gonsalez - 07/26/2023 2:30 PM EDT Please bring all medicines, vitamins, and herbal supplements with you when you come to the office. Prescriptions will not be filled unless you are compliant with your follow up appointments or have a follow up appointment scheduled as per instruction of your physician. Refills should be requested at the time of your visit. Fall Prevention Education Given PLAN: Through informed decision making process incorporating patients unique circumstances, the following treatment plan will be initiated: 1. Prescription drug management of cardiovascular medication for efficacy, adherence to treatment, side effect assessment and polypharmacy. Current treatment clinically warranted and to continue with following modifications: - Reduce Eliquis 2.5mg twice daily 2. Labs (chem6) 3. Return for follow-up; in the interim, contact the office if new symptoms arise. BALE STACKER 6 months You need to stop smoking. Though it is not easy, more than half of all adults smokers have quit. We encourage you to write down all the reasons you should quit smoking and set a quit date for yourself. Ask us how we can help. You may also call 4-264-SIYSNOW for free resources and assistance. documented in this encounter [facility] Work Phone: 06-15-2023 Telephone encounter Note What is the need: Medicare PHU SNF Review Situation: Patient approaching the 30 day readmission period Background: Attending Meng Whitaker MD Date of Admission 05/13/2023 Date of Discharge 05/18/2023 [facility] FINAL DIAGNOSES: Hospital Problems as of 05/18/2023 * (Principal) H/O traumatic fracture Assessment: Reviewed careport patient remains in SNF 05/18/2023 7:35 PM [facility] ([facility]) Recommendation: continue [facility] SNF Review Program closed at this time [facility] Work Phone: 06-15-2023 Miscellaneous Notes What is the need: Medicare TOC SNF Review Situation: Patient approaching the 30 day readmission period Background: Attending Meng Whitaker MD Date of Admission 05/13/2023 Date of Discharge 05/18/2023 [facility] FINAL DIAGNOSES: Hospital Problems as of 05/18/2023 * (Principal) H/O traumatic fracture Assessment: Reviewed careport patient remains in SNF 05/18/2023 7:35 PM EST [facility] (SNF) Recommendation: [facility] SNF Review Program closed at this time documented in this encounter [facility] 06-09-2023 Instructions Colt Live DO - 06/09/2023 8:55 AM EST Weight bearing: weight bear as tolerated on your left lower extremity Continue eliquis twice daily to help prevent blood clots You may shower Continue to work with therapy on strengthening/gait training No tub soaks/baths Call with any questions/concerns, fevers greater than 101F, significant increases in pain, increased incisional redness/drainage Return to clinic in 4 weeks MAKE AN APPOINTMENT WITH A SPINE SURGEON near you I recommend Dr. James Noriega who sees patients at [facility] documented in this encounter [facility] 06-09-2023 History of Present illness Narrative Doing well overall. Has had difficulties ambulating for months prior to fall. Has not been worked up much. Bilateral foot drop which was new in the past few months but present prior to surgery. Recommended she see neurology or spine surgeon near [place]. They are closer to [facility] and 1.5 hrs from here. They would prefer to see someone at [facility]. On eliquis. Incisions well healed. Ambulating with PT. Incisions well healed. No signs of infection. Sutures removed today. Xrays with maintained alignment an intact implants PLAN: Weight bearing: weight bear as tolerated on your left lower extremity Continue eliquis twice daily to help prevent blood clots You may shower Continue to work with therapy on strengthening/gait training No tub soaks/baths Call with any questions/concerns, fevers greater than 101F, significant increases in pain, increased incisional redness/drainage Return to clinic in 4 weeks MAKE AN APPOINTMENT WITH A SPINE SURGEON near you I recommend Dr. James Noriega who sees patients at [facility] documented in this encounter [facility] 06-01-2023 Telephone encounter Note What is the need: Medicare TOC SNF Review Situation: Patient within the 30 day readmission period Background: Attending Meng Whitaker MD Date of Admission 05/13/2023 Date of Discharge 05/18/2023 [facility] FINAL DIAGNOSES: Hospital Problems as of 05/18/2023 * (Principal) H/O traumatic fracture Assessment: Reviewed careport patient remains in SNF 05/18/2023 7:35 PM [facility] ([facility]) Recommendation: continue [facility] SNF Review Process [facility] Work Phone: 06-01-2023 Miscellaneous Notes What is the need: Medicare TOC SNF Review Situation: Patient within the 30 day readmission period Background: Attending Meng Whitaker MD Date of Admission 05/13/2023 Date of Discharge 05/18/2023 [facility] SURGERY FINAL DIAGNOSES: Hospital Problems as of 05/18/2023 * (Principal) H/O traumatic fracture Assessment: Reviewed careport patient remains in SNF 05/18/2023 7:35 PM [facility] ([facility]) Recommendation: continue [facility] SNF Review Process documented in this encounter [facility] 05-25-2023 Telephone encounter Note What is the need: Medicare TOC SNF Review Situation: Patient within the 30 day readmission period Background: Attending Meng Whitaker MD Date of Admission 05/13/2023 Date of Discharge 05/18/2023 [facility] SURG[facility] FINAL DIAGNOSES: Hospital Problems as of 05/18/2023 * (Principal) H/O traumatic fracture Assessment: Reviewed careport patient remains in SNF 05/18/2023 7:35 PM EST [facility] ([facility]) Recommendation: continue [facility] SNF Review Process Elmo Allen RN [facility] Work Phone: 05-25-2023 Miscellaneous Notes What is the need: Medicare PHU SNF Review Situation: Patient within the 30 day readmission period Background: Attending Meng Whitaker MD Date of Admission 05/13/2023 Date of Discharge 05/18/2023 [facility] FINAL DIAGNOSES: Hospital Problems as of 05/18/2023 * (Principal) H/O traumatic fracture Assessment: Reviewed careport patient remains in SNF 05/18/2023 7:35 PM EST [facility] ([facility]) Recommendation: continue [facility]U SNF Review Process Elmo Allen RN documented in this encounter [facility] 05-19-2023 Miscellaneous Notes Patient discharged to a SNF Name of [facility]: [facility] Phone number: [phone] Patient enrolled in [facility] to begin discharge review documented in this encounter [facility] 05-19-2023 Telephone encounter Note Patient discharged to a [facility] Name of [facility]: [facility] Phone number: [phone] Patient enrolled in [facility] to begin discharge review [facility] Work Phone: 05-18-2023 Note DISCHARGE SUMMARY [address] [address] Kate Hagen Date of : 1950 72 year oldfemale Attending Meng Whitaker MD Date of Admission 05/13/2023 Date of Discharge 05/18/2023 [facility] FINAL DIAGNOSES: Hospital Problems as of 05/18/2023 * (Principal) H/O traumatic fracture C. difficile colitis Diabetes mellitus type II, non insulin dependent ([facility]) Congestive heart failure ([facility]) Hypertension Closed displaced intertrochanteric fracture of right femur ([facility]) Fall Fracture of left side of mandible ([facility]) TMJ (dislocation of temporomandibular joint), initial encounter Acute pain due to trauma Acute blood loss anemia Acute post-operative pain PROCEDURES: 05/14/2023: Echocardiogram with Dr. Conklin 05/14/2023: Cephalomedullary ramon right femur with Dr. Cho/Dr. Live DISCHARGE MEDICATIONS: Current Discharge Medication List START taking these medications Details acetaminophen (TYLENOL) 500 MG tablet Take 2 Tablets by mouth every 6 hours as needed. Qty: 80 Tablet, Refills: 0 bisacodyl (DULCOLAX) 5 MG enteric coated tablet Take 2 Tablets by mouth daily as needed for Constipation. Qty: 30 Tablet, Refills: 0 oxyCODONE 5 MG immediate release tablet Take 1 Tablet by mouth every 6 hours as needed for up to 2 days. Qty: 8 Tablet, Refills: 0 Associated Diagnoses: Closed displaced intertrochanteric fracture of right femur, initial encounter ([facility]) senna (SENOKOT) 8.6 MG tablet Take 1 Tablet by mouth daily as needed for Constipation. Qty: 30 Tablet, Refills: 0 naloxone 4 mg/0.1 mL nasal liquid Use 1 [place] in one nostril (alternate sides) as needed for Drug Overdose for up to 1 dose. Every 2-3 mins. until help arrives. Qty: 1 Each, Refills: 0 CONTINUE these medications which have NOT CHANGED Details brexpiprazole (Rexulti) 1 MG TABS tablet Take 1 Tablet by mouth at bedtime. atorvastatin (LIPITOR) 20 mg tablet Take 20 mg by mouth daily. cyclobenzaprine (FLEXERIL) 10 MG tablet Take 10 mg by mouth 3 times daily as needed. potassium chloride SA (K-DUR) 20 MEQ controlled release tablet Take 20 mEq by mouth daily. pantoprazole (PROTONIX) 40 MG tablet Take 40 mg by mouth 2 times daily. omeprazole (PRILOSEC) 40 MG capsule Take 40 mg by mouth 2 times daily. metoprolol (LOPRESSOR) 50 MG tablet 50 mg 2 times daily. magnesium oxide (MAG-OX) 400 mg (240 mg) tablet Take 400 mg by mouth 2 times daily (with meals). fluoxetine (PROZAC) 40 MG capsule Take 40 mg by mouth daily. dapagliflozin (FARXIGA) 10 MG TABS tablet Take 10 mg by mouth daily. LACTOBACILLUS ORAL Take 1 Tablet by mouth every 8 hours. albuterol (Ventolin HFA) INHALATION HFA inhaler (VENTOLIN,PROAIR,PROVENTIL) 90mcg Inhale 2 puffs every 4 hours by inhalation route. Apixaban (ELIQUIS) 5 MG tablet Take 5 mg by mouth 2 times daily. !! bumetanide (BUMEX) 2 MG tablet Take 2 mg by mouth 2 times daily. !! bumetanide (BUMEX) 1 MG tablet Take 2 mg by mouth at bedtime. hydrocodone-acetaminophen (NORCO) 5-325 mg per tablet Take 1 Tablet by mouth every 6 hours as needed. dulaglutide (Trulicity) 0.75 MG/0.5ML SOPN injection pen Inject 0.75 mg under the skin every Wednesday. ALPRAZolam (XANAX) 1 MG tablet Take 1 mg by mouth 3 times daily as needed. calcium carbonate (OS-PEDRO) 1250 (500 Ca) MG chewable tablet Take 500 mg by mouth 3 times a day. levETIRAcetam (KEPPRA) 250 MG tablet Take 250 mg by mouth 2 times daily. metolazone (ZAROXOLYN) 2.5 MG tablet Take 2.5 mg by mouth daily. fluticasone-salmeterol (ADVAIR DISKUS) 250-50 MCG/ACT inhaler Inhale 2 Puffs by mouth 4 times daily. !! - Potential duplicate medications found. Please discuss with provider. STOP taking these medications ondansetron (ZOFRAN) 4 MG tablet Comments: Reason for Stopping: estradiol (ESTRACE) 0.1 MG/GM vaginal cream Comments: Reason for Stopping: tizanidine (ZANAFLEX) 4 MG capsule Comments: Reason for Stopping: promethazine (PHENERGAN) 25 MG tablet Comments: Reason for Stopping: Current Facility-Administered Medications: dyclonine (SUCRETS) 2 MG lozenge, 2 mg, Mouth/Throat, Q4H PRN, Anatoly Gilliam PA-C barium Sulfate 40 %, 5 oz, Oral, Once at Radiology exam, Eduardo Escobar PA-C metolazone (ZAROXOLYN) tablet, 2.5 mg, Oral, Daily, Renee Chau APRN-CNP, 2.5 mg at 05/18/23 1008 bumetanide (BUMEX) tablet, 2 mg, Oral, 2x Daily Diuretic, Renee Chau APRN-CNP, 2 mg at 05/18/23 1145 bumetanide (BUMEX) tablet, 1 mg, Oral, At Bedtime, Renee Chau APRN-CNP, 1 mg at 05/17/23 2201 ALPRAZolam (XANAX) tablet, 0.5 mg, Oral, Daily PRN, Renee Chau APRN-CNP guaifenesin (MUCINEX) 600 MG 12 hour tablet, 600 mg, Oral, 2x Daily PRN, Renee Chau APRN-CNP, 600 mg at 05/17/23 2201 ondansetron (ZOFRAN) 4 MG/2ML injection, 4 mg, Intravenous Push, Q4H PRN, Becca Valles MD, 4 mg at 05/15/23 0237 albuterol (PROVENTIL HFA (more content not included)... [facility] 05[facility]18[facility]2023 Note Discharge plan remai ns SNF. Pt has been accepted at [facility]. Pt does not require precert prior to transfer, awaiting medical clearance. Lidia Morel, AUTOMOTIVE PARTS COUNTERPERSON, MACHINE STONE POLISHER APPRENTICE [facility] 05-16-2023 Note Orthopaedics Progres s Note Kate Hagen [id number] S: No acute events overnight. Tachycardia overnight. Pain is well-controlled. Denies cp/sob/n/v/f/c O: BP 90/59 (BP Location: right arm) Pulse 109 Temp 98.4 ???F (36.9 ???C) (Oral) Resp 18 Ht 5' 5 (1.651 m) Wt 144 lb 6.4 oz (65.5 kg) SpO2 100% BMI 24.03 kg/m??? Alert, awake Right Lower Extremity Dressing c/d/i Baseline 3/5 DF; 5/5 PF/EHL SILT LFCN, PFCN, Obturator, Saphenous, Sural, DP, SP, Tibial intact 2+ DP, PT pulses; foot warm, well-perfused Compartments soft (thigh, leg, foot) Labs Basic Metabolic Panel Na K Cl CO2 Gap Glu BUN Cr Ca 05/15/23 0203 135 Comment: Note updated reference ranges. 4.0 Comment: Note updated reference ranges. Note updated reference ranges. 98 Comment: Note updated reference ranges. 22 Comment: Note updated reference ranges. 19 126 52 Comment: Note updated reference ranges. 2.26 Comment: Note updated reference ranges. 7.7 Comment: Note updated reference ranges. 05/14/23 1428 146 05/14/23 1428 135 3.2 100 05/13/23 2334 134 Comment: Note updated reference ranges. 3.5 Comment: Note updated reference ranges. Note updated reference ranges. 98 Comment: Note updated reference ranges. 23 Comment: Note updated reference ranges. 17 140 47 Comment: Note updated reference ranges. 1.80 Comment: Note updated reference ranges. 6.9 Comment: Note updated reference ranges. CBC (last 3 years, up to 5 values) WBC RBC Hgb Hct MCV RDW Plt 05/15/23 0203 10.3 2.60 8.0 23.8 92 14.3 225 05/14/23 1428 10.0 31.0 05/13/23 2334 9.7 2.98 9.4 27.0 91 14.1 149 A/P: Kate Hagen is a 72 year old female s/p Right femur CMN with Dr. Live on 05/14/2023. Hgb 6.3 this am. - Pain control: multimodal per primary - Periop antibiotics: Ancef 2g x 24h (complete) - Encourage aggressive incentive spirometry - PT/OT, WBAT RLE - Dressing Aquacel + compressive LONI warp - DVT ppx: SCDs and ASA 81mg BID x 6 weeks (or equivalent per primary) - Vitamin D/Calcium supplementation x 6 weeks - Follow up with Dr. Live in 2 weeks - Orthopaedics will follow peripherally at this time; please contact with questions/concerns - Dispo per trauma; skilled for SNF Andre Colunga, Orthopaedic Surgery, PGY-4 Ortho Team A Pager [phone] (Plasmon Chat works best - please include all of Team A in Tessella messages) After 5 pm and on weekends, please page air route controller resident ([phone]) with questions or concerns. [facility] 05-15-2023 Note SPEECH SUPERVISOR TESTING OLOGY SWALLOW EVALUATION: [id number] Referral received, chart reviewed and history is noted. Time In: 1235 Time Out: 1247 Session Duration: 12 minutes Patient is identified by patient/armband stating name and date of . Date of Onset: 05/13/2023 Reason for Consult: Swallow evaluation, concern for dysphagia History/Diagnosis: 72 year old year old female with a history of HTN, HLD, DM2 c/b gastroparesis and neuropathy, CKD3b c/b anemia and secondary hyperparathyroidism, HFpEF, pAFib, COPD, MARGARITA, pHTN, seizure disorder, NAFLD, Haddad's esophagus, diverticulosis, IBS, RLS, depression, anxiety presenting to ED on 05/13/2023 for mechanical fall after tripping, multiple recent falls. Trauma work-up revealed R hip and L mandibular fractures. Ortho consult, brought patient to OR on 05/14/2023 for R CMN. Precautions: WBAT RLE in soft dressing, Soft, non-chew diet for 6 wks d/t mandibular fracture, Contact Precautions: CDiff, fall precautions, Full Code Imaging: CT BRAIN: No mass or acute hemorrhage. No evidence of acute infarct. Mild generalized brain parenchymal volume loss with normal caliber ventricles. Scattered patchy foci of white matter hypoattenuation, most likely mild chronic microvascular angiopathy. Mucosal thickening of paranasal sinuses with small volume of right maxillary fluid. The remainder of the skull, paranasal sinuses and tympanomastoid cavities are normal. Displaced left mandibular condyle fracture with dislocated TMJ joint. CTA HEAD: Anterior Circulation: The internal carotid arteries are patent. ACAs and MCAs are patent. No vessel cutoff, aneurysm or focal hemodynamically significant stenosis. Vertebrobasilar Circulation: Intracranial vertebral arteries, PICA/AICA branches, basilar artery, SCAs and med spa manager are patent. No vessel cutoff, aneurysm or focal hemodynamically significant stenosis. Impression 1. No acute intracranial abnormality. 2. Displaced left mandibular condyle fracture with dislocated TMJ joint. 3. No significant stenosis, dissection, or aneurysm in the intracranial circulation. Prior Level of Functioning: Patient denies any history of oropharyngeal dysphagia. She states that she has GERD that she takes a PPI to treat. SUBJECTIVE: Patient subjective/goals: Patient is alert and resting in bed. She is agreeable to assessment. Patient states she had an episode of coughing with thin liquids this am which she attributes to taking too large of a sip. Patient states this occurs rarely. Pain: no Scale (if yes): 0/10 Location: N/A OBJECTIVE: Speech: Speech Production: Patient is judged to be 100% intelligible at the conversational level. Speech production is WFL. Fluency, prosody, and resonance are intact. Phonation: WFL Oral-Motor Assessment: Lingual protrusion: midline Lingual lateralization: able to lateralize fully left and right. Labial protrusion: WFL Labial retraction: WFL Mandible: N/A due to mandibular fracture Symmetry: grossly symmetric facies Secretions: intact management Dentition: upper and lower dentures Respiratory: Oxygen Requirements: 3L O2 via NC Patient reports baseline oxygen support needs Swallowing -Patient is currently on a Dental Mechanical Soft Diet, Thin Liquids -Oral mucosa is pink and moist Jessika Swallow Protocol: State: alert; maintained across session Brief Cognitive Screen: What is your Name?: + Where are you right now?: + What year is it?: + Oral Mechanism Assessment: Tongue ROM: WFL Facial Symmetry: WFL Smile: WFL Pucker: WFL Lip Closure (cheek puff and hold): WFL 3-ounce water swallow challenge: Positioning: upright 60 degrees Mode of administration: straw, per patient preference Consecutive drinking of 3oz Thin water: completes uninterrupted x 2 Cough/Throat Clear: absent FAIL: Inability to drink the entire 3 ounces (90cc)in sequential swallows due to stopping/starting or patient exhibits over signs of aspiration (I.e. coughing or choking, either during or immediately after completion) xxx PASS: Complete and uninterrupted drinking of all 3 ounces (90cc) of water without overt signs of aspiration (I.e. coughing or choking, either during or immediate after completion) *The Jessika Swallow Protocol (YSP) is a standardized measure with high sensitivity(96.5%) and negative prediction value (97.9%). Other Consistencies Presented: Soft solids Puree Thin Liquids via cup and straw Oral Phase: Complete bilabial seal around cup, straw and spoon No anterior spillage Timely mastication, complete bolus breakdown No oral residuals Pharyngeal Phase: No evidence of airway compromise w/ oral intake RISK ASSESSMENT Dysphagia Risk Factors: Predisposing: COPD, HF, COPD, seizure disorder, Haddad's esophagus Clinical signs of possible chronic dysphagia: none identified Precipitating: none identified Factors contributing to aspiration related pu (more content not included)... [facility] 05-15-2023 Note GERIATRIC CONSULTATI ON Patient Name: Kate Hagen Location: [place] [address] PCP: No primary care provider on file. Geriatric Medicine team has been consulted by Rey Carbajal DO to provide recommendations for the following problem(s): Evaluate older adult with co-morbid medical problems and recent trauma Falls evaluation Multiple medications effecting the older adult Our opinion has been requested to help clarify the presenting problem(s) and provide medication evaluation and recommendations, disease management recommendations, and recommendations for an appropriate plan of care. The following note reflects my opinion and services performed, as well as recommendations pertaining to treatments, medications and post-acute care History was obtained by: discussion with patient - reliable historian discussion with patient's family/responsible democrat - reliable historian discussion with nursing staff and review of chart HPI: 72 year old year old female with a history of HTN, HLD, DM2 c/b gastroparesis and neuropathy, CKD3b c/b anemia and secondary hyperparathyroidism, HFpEF, pAFib, COPD, MARGARITA, pHTN, seizure disorder, NAFLD, Haddad's esophagus, diverticulosis, IBS, RLS, depression, anxiety presenting to ED on 05/13/2023 for mechanical fall after tripping, multiple recent falls. Trauma work-up revealed R hip and L mandibular fractures. Ortho consult, brought patient to OR on 05/14/2023 for R CMN. Transferred to trauma floor post-op Reason for consult: Polypharmacy; frequent falls Home meds per Renee Chau, TORPEDO MAN-INDUSTRIAL TRAINER note: - Atorvastatin 20 mg daily - Eliquis 5 mg BID - Metoprolol tartrate 50 mg BID - Farxiga 10 mg daily - Bumetanide 2 mg BID - Bumetanide 1 mg daily at bedside - Metolazone 2.5 mg daily - Magnesium oxide 400 mg BID - Potassium chloride 20 mEq daily - Advair 250-50 mcg/dose 2 puffs QID - Ventolin 90 mcg/actuation - 3L home oxygen. - Trulicity 0.75 mg on Sundays - Keppra 250 mg BID - Hydrocodone-acetaminophen 5-325 mg - Flexeril 10 mg TID - Tizanidine 4 mg TID PRN - Fluoxetine 40 mg daily - Rexulti 1 mg once at bedtime - Xanax 1 mg TID PRN - Pantoprazole 40 mg BID - Omeprazole 40 mg BID - Zofran 4 mg q6h PRN - Promethazine 25 mg q6h PRN - Calcium carbonate 500 mg TID - Estradiol 0.25 twice a week A/P: Medication management - current and outpatient medication list reviewed - agree with scheduled tylenol, low dose oxycodone, wean as tolerated - agree with reduced benzo dose while receiving opioids - follow-up with PCP at [facility] for further benzo taper - may continue home fluoxetine and brexipiprazole for now - cyclobenzaprine and tizanidine, discontinue one - ondansetron and promethazine, discontinue one - omeprazole and pantoprazole, discontinue one - continue home Keppra at current dose, check level At risk for delirium - promote sleep-wake cycle, nocturnal quiet hours 10 p to 7 am - frequent re-orientation, encourage family visitation - encourage use of glasses, hearing aids if available - daily mobilization, consider music therapy, art therapy - avoid lines and restraints, order sitter if needed - avoid anticholinergics, psychoactive meds, minimize opioids Frequent falls - unsteady gait, R foot drop, polypharmacy contributing factors - daughter reports increase in falls since starting Keppra last year, check Keppra level - continue PT/OT - check 25-OH Vit D, supplement if low Possible dysphagia - some choking/coughing with liquids, prior work-up reportedly normal - consider ARTIFACTS CONSERVATOR for swallow evaluation Discharge planning - tentative discharge plan is SNF Thank you for the consultation and allowing the Geriatric Medicine service to work with you for the benefit of your older patient. Jayro Olmedo MD Department of Geriatric Medicine GERIATRIC ASSESSMENT: Baseline Cognitive Status: mild forgetfulness at baseline Depression/anxiety: Yes, low mood recently, isolated due to weather Sleep disturbance: Yes, chronic insomnia Reduced appetite: No Chewing/swallowing difficulty: Yes, some choking/coughing with liquids Weight change: No, weight stable over the last year Bowel/bladder function: recent diarrhea, mixed incontinence Ambulation: independent with cane, unsteady gait, R foot drop Falls: Yes, multiple recent falls Pain: Yes, chronic R shoulder pain on [place] Change in ADLs: Yes, s/p R hip fracture Dressing: independent Grooming: independent Bathing: moderate assistance Toileting: independent Continence: independent Feeding: independent Transfers: independent Transportation: moderate assistance Grocery shopping: moderate assistance Meal preparation: moderate assistance Housecleaning: moderate assistance Laundry: moderate assistance Finances: minimal assistance, occasionally needs reminders Telephone use: independent Medications: independent Living Situation: with 2 daughters, ni (more content not included)... [facility] 05-15-2023 Note Orthopaedic Surgery Progress Note S: Afib with RVR early this am, received metoprolol and rate controlled. Pt is asymptomatic. Doing well this am, pain controlled. Contact precaution for C diff dx from previous hospital, pt not having any diarrhea. O: Patient Vitals for the past 24 hrs: BP Temp Temp src Pulse Resp SpO2 O2 Device O2 Flow Rate (l/min) 05/15/23 0818 -- -- -- 110 -- 100 % -- -- 05/15/23 0655 115/76 -- -- 132 20 99 % Nasal cannula 05/15/23 0633 -- -- -- 110 16 98 % Nasal cannula 05/15/23 0556 113/71 98.2 ???F (36.8 ???C) Oral 117 17 99 % Nasal cannula 05/15/23 0143 100/57 98.1 ???F (36.7 ???C) Oral 120 18 100 % Nasal cannula 05/14/23 2135 122/58 98.2 ???F (36.8 ???C) Oral 117 20 100 % Nasal cannula 3 05/14/232014 -- -- -- -- 18 -- Nasal cannula 05/14/231944 -- -- -- -- -- -- Nasal cannula 05/14/23 1719 117/62 98.5 ???F (36.9 ???C) Oral 115 16 99 % Nasal cannula 3 05/14/23 1630 92/74 -- -- 114 17 97 % Nasal cannula 3 05/14/23 1615 110/82 -- -- 113 18 96 % Nasal cannula 3 05/14/23 1600 137/79 98.2 ???F (36.8 ???C) Temporal 120 19 100 % Nonrebreather 10 05/14/23 1223 -- -- -- 82 19 98 % Nasal cannula 3 05/14/23 1100 117/60 97.9 ???F (36.6 ???C) Oral 86 20 99 % Nasal cannula 3 05/14/23 0916 -- -- -- 90 18 98 % Nasal cannula 3 05/14/23 0905 97/60 -- -- 84 -- -- Nasal cannula -- Gen: NAD, AOx3 RLE: - baseline 3/ dorsiflexion - 5 PF/EHL - SILT s/s/t/dp/sp - 2+ DP - Dressing c/d/i; no drainage noted Labs: CBC/PT/INR WBC RBC Hgb Hct MCV RDW Plt PT aPTT INR 05/15/23 0203 10.3 2.60 8.0 23.8 92 14.3 225 05/14/23 1428 10.0 31.0 05/13/23 2334 31 05/13/23 2334 1.30 05/13/23 2334 9.7 2.98 9.4 27.0 91 14.1 149 Basic Metabolic Panel Na K Cl CO2 Gap Glu BUN Cr Ca Mg PO4 05/15/23 0203 1.4 05/15/23 0203 135 Comment: Note updated reference ranges. 4.0 Comment: Note updated reference ranges. Note updated reference ranges. 98 Comment: Note updated reference ranges. 22 Comment: Note updated reference ranges. 19 126 52 Comment: Note updated reference ranges. 2.26 Comment: Note updated reference ranges. 7.7 Comment: Note updated reference ranges. 05/14/23 1428 146 05/14/23 1428 135 3.2 100 05/13/23 2334 134 Comment: Note updated reference ranges. 3.5 Comment: Note updated reference ranges. Note updated reference ranges. 98 Comment: Note updated reference ranges. 23 Comment: Note updated reference ranges. 17 140 47 Comment: Note updated reference ranges. 1.80 Comment: Note updated reference ranges. 6.9 Comment: Note updated reference ranges. Imaging: Intra-op shows successful fracture reduction and hardware placement A/P: 72F s/p Right femur CMN with Dr. Live on 05/14/2023 Afib with RVR on 05/15, rate controlled with Metoprolol. - Pain control: multimodal per primary - Periop antibiotics: Ancef 2g x 24h - Encourage aggressive incentive spirometry - ADAT, Heplock IV when tolerating PO - PT/OT, WBAT RLE - Dressing Aquacel + compressive LONI warp - DVT ppx: SCDs and ASA 81mg BID x 6 weeks (or equivalent per primary) - Vitamin D/Calcium supplementation x 6 weeks - Dispo per trauma Deisi Hu MD Orthopaedic Surgery, PGY-1 Ortho Team A Epic Chat Preferred For questions/issues, patient will be followed by Team A: Ortho Team A: Summer PGY-3 ([phone]); Fritz PGY-1 ([phone]), Keanu PGY-4 ([phone]) Between 5pm-7am, weekends, and holidays please page ortho consult pager with urgent/emergent issues, [phone] [facility] 05-15-2023 Note PHYSICAL THERAPY ACU TE EVALUATION Referral received, chart reviewed. Time In: 0815 Time Out: 0825 Patient seen for 10 minutes evaluation Unit: [facility] Admit date/time: 05/13/2023 9:30 PM Reason for Admit: 72 yo female admit s/p mechanical fall from standing after tripping over object at home. 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 Uses w/c PRN for community distances. Daughters assist with showering, and daughters mostly complete IADLs. Uses 3L [place] O2 at home. Pt is retired. Daughters provide transportation Falls: pt reports multiple falls in the last 6 months d/t LE buckling and R foot drop (new in the last few months, no injury that caused it) Home: Pt lives with her 2 daughters and niece in a 1 story house with ramp entrance. 0 steps to bedroom/bathroom. Assistance available: 1 daughter is home/available 23/11 to assist; other daughter works Equipment available: shower chair, cane, RW, rollator, manual w/c OBJECTIVE: Appearance: Oxygen, IV, kim, and Dressings RLE Behavior: WFL Oriented x 3 Follows 2 step commands consistently Pain: Pain Scale: 6/10; Site/Location: R foot and leg Pain Relief Interventions Implemented: Positioning, Rest, and RN aware and reports patient received medication according to time schedule Vitals: HR 110 bpm SpO2 100% Passive ROM: R ankle to -5* DF L ankle to 0* DF R knee 0* ext to 90* flex R hip 20-80* flex (supine) L knee WFL L hip WFL Strength/Active ROM: R ankle DF 1/5 R ankle PF 3/5 L ankle DF 2-/5 L ankle PF 3/5 R knee flex/ext 2-/5 L knee flex/ext at least 3/5 Mobility: NT secondary to pt had rapid response called 1 hr ago d/t a-fib with RVR; RN requesting PT hold mobility at this time Endurance: Impaired Patient/Family Education: Instructed Patient in roles, goals, treatment plan: demonstrated good verbal understanding. Pt educated on performing LLE AROM in bed frequently throughout the day, and attempting R ankle DF/PF as able At end of session, patient in bed with call light in reach and bed alarm on 6 Clicks Basic Mobility PT 05/15/2023 Difficulty turning over in bed 1 Difficulty sitting down and standing up from a chair with arms 1 Difficulty moving from lying on back to sitting on the side of the bed 1 Help from another person moving to and from bed to a chair 1 Help from another person to walk in hospital room 1 Help from another person climbing 3-5 steps with a railing 1 PT 6 Clicks Score 6 6 Click Score Guidelines: 1 - Total = Requires total assistance, or cannot do at all. 2 - A lot = Requires a lot of help (maximun to moderate assistance) Can use assistive devices. 3 - A little = Requires a little help (supervision, minimal assistance) Can use assistive devices. 4 - None = Does not require any help and does the activity independently. Can use assistive devices. ASSESSMENT: Kate Hagen is a 72 year old yo female s/p R femur fracture and mandibular fracture from fall. Pt demonstrates impairments in strength, balance, endurance and functional mobility. Of note, pt has recently developed foot drop R>L and has had frequent falls at home. Unable to assess mobility this date d/t a-fib with RVR; pt not medically appropriate for upright mobility at this time. Pt requires continued skilled PT to address impairments and progress independence with mobility. Recommend further therapy services in a Nursing Home Setting once medically cleared. Will continue to follow patient while in hospital as appropriate. Will continue to assess pt mobility as medical status allows. Problems: Pain Decreased ROM/strength Decreased functional mobility Decreased endurance Decreased balance Decreased education in exercise/precautions Rehabilitation Potential: Good Goals, to be achieved by discharge from acute care: Patient will achieve acceptable level of pain control to allow participation in therapy. Patient will increase bed mobility to modified independent Patien (more content not included)... [facility] 05-15-2023 Note OCCUPATIONAL THERAPY INITIAL EVALUATION Per RN: to keep patient at bed level for evaluation secondary to A-fib with RVR this A.M. Patient seen from 8:13 AM to 8:25 AM on 5 [facility] unit for 12 minutes. Reason for Admit: 72 year old female presents to [facility] c/o right hip pain after falling. Diagnosis: Displaced (L) mandibular condyle fracture with dislocated (L) TMJ joint (R) Intertrochanteric Femur Fx Precautions/Activity Order: [place] Full code Contact precautions: C-diff WBAT RLE in soft dressing Soft, non-chew diet for 6 wks d/t mandibular fracture Procedures this admit: 05/14/23 Dr. Live Cephalomedullary ramon right femur Past Medical and Surgical History: PMH: T2DM, neuropahty, MARGARITA, epilepsy, emphysema, CHF, afib, CKD stage 3b, depression, anxiety PSH: History reviewed. No pertinent surgical history. SUBJECTIVE: Patient Subjective: I've a lot of falls my legs buckle and I have drop toe Patient Identified Goal(s): to return home Home Living Situation Prior Functional Status: -Independent functional ambulation with cane -Sometimes utilizes wheelchair for community distances -Daughters assists with showering -Daughters mostly completes IADLS -wears 3L 02 at home -works (-) retired -drives (-) daughters provide transportation -reports multiple falls (legs been buckling) Assistance Available at Home: Lives with 2 daughters and niece. Has near 24/7 assistance. Patient lives in a single story home ramp to enter Full Bathroom on 1 level Bedroom on 1 level. Equipment available at home: shower chair, cane, RW, rollator, wheelchair OBJECTIVE: Patient Identification: patient verbalizing his/her name and date of . Risks and benefits of occupational therapy: Patient informed of risks and benefits of treatment Appearance: Supine in bed upon arrival, kim, adult brief, dressing intact to (R) LE Alertness: Awake Affect: WNL Cooperation/Behavior: Appropriate dialogue with therapist and Pleasant and cooperative Communication: WFL Pain: Pain ratin/10, Location: (R) LE Pain Relief Interventions Implemented: Positioning Self Care: Assistance Level Dep Max Mod Min CG CS DS IA I Set-Up Comment Feeding x Grooming/Hygiene x x Simulated at bed level Bathing:UB x Simulated at bed level Bathing:LB x Simulated at bed level Dressing:UB x x To adjust hospital gown at bed level Dressing: LB x To adjust socks at bed level Toileting x Kim+ Transfers/Bed Mobility: Assistance Level Dep Max Mod Min CG CS DS IA I Set-Up Comment Toilet Transfers NT: deferred secondary to a-fib with RVR; RN requesting OT hold mobility at this time Bed Transfers Bed Mobility Endurance for Self Care: Impaired Static Sitting Balance: Impaired Dynamic Sitting Balance: Impaired UE Motor: (B) UE AROM shoulder flexion ~3/4 range (B) UE elbow flex/ext WFL (B) UE wrist flex/ext WFL (B) auto wheel alignment specialist strength 4/5 Cognition: Orientation: Oriented to person, place, and date Follows Commands: WFL Patient/Family Education: Patient instructed in roles, goals, treatment plan: demonstrated good verbal understanding Patient up in bed with call light in reach. DME: With Patients permission ordered no equipment via [employer] Order. If any questions contact [facility] DME Provider at [phone]. 6 Clicks Daily Activity OT 05/15/2023 Help from another person Eating meals 4 Help from another person taking care of personal grooming 3 Help from another person bathing 2 Help from another person putting on and taking off regular upper body clothing 3 Help from another person putting on and taking off regular lower body clothing 1 Help from another person toileting 1 OT 6 Clicks Score 14 6 Click Score Guidelines: 1 - Unable = Total/Dependent Assist 2 - A lot = Max/Moderate Assist 3 - A little = Minimum/Contact Guard Assist/Supervision 4 - Non = Modified [place]/Independent ASSESSMENT: Kate Hagen s/p Cephalomedullary ramon right femur with frequent falls at home. Patient is performing below baseline for mobility and ADLS. Recommend further therapy services in a Skilled Rehab Setting once medically cleared. Will continue to follow patient while in hospital as appropriate. Rehabilitation Potential: Good Problem List: decreased ADLs, impaired upper extremity motor function, decreased endurance, decreased functional transfers/mobility, impaired balance, decreased home management tasks/IADLs, decreased functional activity tolerance, and increased pain Goals (to be achieved by discharge from acute care): Patient will perform grooming with Distant supervision Patient will dress upper body with Distant supervision Patient will dress lower body with Minimal assistance Patient will perform bed mobility with Minimal assistance Patient will perform bathing with Minimal assistance Patient will perform toileting with Minimal assistance Patient will perform bed transfers w (more content not included)... [facility] 05-14-2023 Note 05/14/23 7967 Assessment and Discharge Planning Evaluation READMISSION LESS THAN 30 DAYS No READMISSION RISK SCORE IS High Risk INTERVIEWED Chart Review COGNITIVE STATUS Oriented to person, place, time and location LIVING SITUATION Home - Own PCP VERIFIED No ADMISSION INSURANCE Medicare;Private Insurance (comment) Medicare Traditional HOME HEALTH CARE PRIOR TO ADMISSION No Dialysis No TENTATIVE DISCHARGE PLAN Other (Comment) (TBD) READMISSION RISK SCORE SHOULD BE Remain Unchanged REASON READMISSION SCORE NEEDS ADJUSTED n/a SDOH Completed? Unable to assess patient Pt in OR today for Right femur CMN, chart reviewed for care coordination. PT/OT consults pending. Awaiting post-op therapy recommendations. Please Note: For patients who have Traditional Medicare as their primary payor source, they must meet a 3 midnight inpatient stay to qualify for SNF placement. If at any time pt no longer meets inpatient criteria prior to their DC date, they no longer qualify for SNF placement. SW will continue to follow and intervene as needed for discharge planning. KONRAD Rivas, GUILLAUME [facility] 05-14-2023 Note Orthopaedic Surgery Progress Note S: Patient examined after extubation. Doing well. O: Patient Vitals for the past 24 hrs: BP Temp Temp src Pulse Resp SpO2 O2 Device O2 Flow Rate (l/min) 05/14/23 1223 -- -- -- 82 19 98 % Nasal cannula 3 05/14/23 1100 117/60 97.9 ???F (36.6 ???C) Oral 86 20 99 % Nasal cannula 3 05/14/23 0916 -- -- -- 90 18 98 % Nasal cannula 3 05/14/23 0905 97/60 -- -- 84 -- -- Nasal cannula -- 05/14/23 0613 -- -- -- -- -- -- Nasal cannula -- 05/14/23 0516 -- -- -- -- -- -- Nasal cannula -- 05/14/23 0409 -- -- -- -- -- -- Nasal cannula -- 05/14/23 0404 114/69 98.4 ???F (36.9 ???C) Oral 91 19 98 % Nasal cannula 3 05/14/23 0203 -- -- -- -- -- -- Nasal cannula -- 05/14/23 0102 -- -- -- -- -- -- Nasal cannula -- 05/14/23 0053 -- -- -- -- 16 -- Nasal cannula 3 05/14/23 0027 -- -- -- -- -- -- Nasal cannula -- 05/13/23 2256 127/63 98.7 ???F (37.1 ???C) Oral 101 18 98 % Nasal cannula 3 05/13/235 -- -- -- -- -- -- Nasal cannula 3 Gen: arousable, appropriately conversational RLE: - 5/5 DF/PF/EHL - SILT s/s/t/dp/sp - 2+ DP - Dressing c/d/i; no drainage noted; appropriate incisional tenderness Labs: CBC/PT/INR WBC RBC Hgb Hct MCV RDW Plt PT aPTT INR 05/14/23 1428 10.0 31.0 05/13/23 2334 31 05/13/23 2334 1.30 05/13/23 2334 9.7 2.98 9.4 27.0 91 14.1 149 Basic Metabolic Panel Na K Cl CO2 Gap Glu BUN Cr Ca Mg PO4 05/14/23 1428 146 05/14/23 1428 135 3.2 100 05/13/23 2334 134 Comment: Note updated reference ranges. 3.5 Comment: Note updated reference ranges. Note updated reference ranges. 98 Comment: Note updated reference ranges. 23 Comment: Note updated reference ranges. 17 140 47 Comment: Note updated reference ranges. 1.80 Comment: Note updated reference ranges. 6.9 Comment: Note updated reference ranges. Imaging: Intra-op shows successful fracture reduction and hardware placement A/P: POD# 0 s/p Right femur CMN with Dr. Live on 05/14/2023 - Pain control: multimodal per primary - Periop antibiotics: Ancef 2g x 24h (ordered) - Encourage aggressive incentive spirometry - ADAT, Heplock IV when tolerating PO - PT/OT, WBAT RLE - Dressing Aquacel + compressive LONI warp - DVT ppx: SCDs and ASA 81mg BID x 6 weeks (or equivalent per primary) - Vitamin D/Calcium supplementation x 6 weeks - Dispo per trauma Cathy Juárez MD, PGY-2 Orthopaedic Surgery [facility] Pager: [phone] Ortho Team B: Cathy Juárez MD, PGY-2 Pager [phone] Jennifer Pond, PGY-2 Pager [phone] Pau Weaver MD, PGY-2 Pager [phone] Team A: Summer PGY-3 ([phone]); Fritz PGY-1 ([phone]), Keanu PGY-4 ([phone]) Elective Team: Stephanie PGY-3 ([phone]); Alyssa PGY-2 ([phone]) Hand Team: Rachel PGY-3 ([phone]) After 5pm, weekends, and holidays please page Ortho consult pager, [phone] [facility] 05-14-2023 Note EXAMINATION: XR CHES T AP OR PA 1 VIEW 05/14/2023 10:20 AM CLINICAL HISTORY: pre-operative evaluation ASSOCIATED DIAGNOSIS: pre-operative evaluation ORDERING PROVIDER: RENEE CHAU TECHNEARLE NOTE: COMPARISON: XR CHEST AP OR PA 1 VIEW 05/13/2023, 11:15 PM FINDINGS: Limited by technique and patient positioning. Lines, tubes, and devices: None. Lungs and pleura: Mild left basilar atelectasis or airspace disease. Cardiomediastinal silhouette: Normal cardiomediastinal silhouette. Musculoskeletal: Osteopenia limits the examination. Degenerative changes of the thoracic spine are noted. IMPRESSION: Mild left basilar atelectasis or airspace disease. MACRO: None [facility] 05-14-2023 Note PHYSICAL THERAPY KAIR RT REVIEW Referral received, chart reviewed. Admit date/time: 05/13/2023 9:30 PM Reason for Admit: 72 yo female admit s/p mechanical fall from standing after tripping over object at home. 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 I have personally seen and evaluated the patient, repeating kim portions. There is no significant interval change. Surgery is still indicated. Yes Consent reviewed and signed by patient/family: Yes Operative site verified: Yes Jennifer Pond, DO Orthopedic Surgery PGY-2 [facility] Orthopaedic Trauma After 6:00 PM, or on weekends, please page the orthopaedic on-call resident at [phone]. [facility] 04-28-2023 Hospital Discharge instructions Patient Education 04/28/2023 10:24:50 Urinary Tract Infection, Adult, [id number] Urinary Tract Infection, Adult A urinary tract [...] Follow these instructions at home: Medicines Take [id number] and prescription medicines only as told by [...] provider. Document Revised: 11/29/2020 Document Reviewed: 11/29/2020 [employer] Patient Education 2022 [employer]. Follow Up Care 02/22/2023 10:37:46 With:Alec XIE, Jacqui Nieves, URL, URO Address: When:Within 3 Month(s) [facility] 04-03-2023 Evaluation + Plan note Associated Problem(s): Current smoker Continued every day tobacco use. Have reviewed the negative cardiovascular impact of nicotine. Continues to decline pharmacological assistance. [facility] Work Phone: 04-03-2023 Evaluation + Plan note Associated Problem(s): Stage 3 chronic kidney disease (CMS/HCC) Report establish follow-up with Dr. Dean Last creatinine in our system was 4.2 [facility] Work Phone: 04-03-2023 Miscellaneous Notes Associated Problem(s): Current smoker Continued every day tobacco use. Have reviewed the negative cardiovascular impact of nicotine. Continues to decline pharmacological assistance. Associated Problem(s): Stage 3 chronic kidney disease (CMS/HCC) Report establish follow-up with Dr. eDan Last creatinine in our system was 4.2 [...] size were reportedly normal Associated Problem(s): A-fib (CMS/[facility]) Daughter believes this was diagnosed during one of the hospitalizations prior to being under the care of of an NO. Regular rate and rhythm on exam Associated Problem(s): Aortic stenosis October 2022 TTE Aortic Stenosis p46;m26 documented in this encounter [facility] Work Phone: 04-03-2023 Evaluation + Plan note Associated Problem(s): Diabetes mellitus type II, non insulin dependent (CMS/HCC) Maintained on statin No LONI/ARB due to CKD [facility] Work Phone: 04-03-2023 Evaluation + Plan note Associated Problem(s): Anticoagulated CHADS VASc 4 chronically anticoagulated full dose Eliquis age 72, weight 160 pounds. [facility] Work Phone: 04-03-2023 Evaluation + Plan note Associated Problem(s): Essential hypertension Optimal in office [facility] Work Phone: 04-03-2023 Evaluation + Plan note Associated Problem(s): Hyperlipidemia Low intensity statin [facility] Work Phone: 04-03-2023 Evaluation + Plan note Associated Problem(s): Abnormal echocardiogram October 2022 TTE LVEF 60 to 65% LA moderate/severe Aortic stenosis peak 46, mean 26 RVSP 84 mmHg (denies prior PE, longstanding tobacco abuse, chronic hypoxia and COPD) RV function and size were reportedly normal [facility] Work Phone: 04-03-2023 Evaluation + Plan note Associated Problem(s): A-fib (CMS/HCC) Daughter believes this was diagnosed during one of the hospitalizations prior to being under the care of of an [facility]. Regular rate and rhythm on exam [facility] Work Phone: 04-03-2023 Evaluation + Plan note Associated Problem(s): Aortic stenosis October 2022 TTE Aortic Stenosis p46;m26 [facility] Work Phone: 03-30-2023 History of Present illness Narrative Chief Complaint So far so good Reason for Visit Routine 4-month follow-up Patient presents to the office today for outpatient follow-up for aortic stenosis, PAF, primary prevention. Last evaluated in clinic by myself December 2022. Presents today in wheelchair, utilizing oxygen. Accompanied by child Both patient and daughter are extremely difficult historians, following December visit I requested cardiology records from [facility] and those were not obtained. She [...] incidence of candidiasis. Do not swallow. HYDROcodone-acetaminophen ([place]) 5-325 mg tablet 1 tablet, oral levETIRAcetam [...] October 2022 TTE Aortic Stenosis p46;m26 A-fib ([facility]) Daughter believes this was diagnosed during one of the hospitalizations prior to being under the care of of an [facility]. Regular rate and rhythm on exam Abnormal echocardiogram October 2022 TTE LVEF 60 to 65% LA moderate/severe Aortic stenosis peak 46, mean 26 RVSP 84 mmHg (denies prior PE, longstanding tobacco abuse, chronic hypoxia and COPD) RV function and size were reportedly normal Hyperlipidemia Low intensity statin Essential hypertension Optimal in office Anticoagulated CHADS VASc 4 chronically anticoagulated full dose Kathie age 72, weight 160 pounds. Diabetes mellitus type II, non insulin dependent ([facility]) Maintained on statin No LONI/ARB due to CKD Stage 3 chronic kidney disease ([facility]) Report establish follow-up with Dr. Dean Last creatinine in our system was 4.2 [...] contact the office if new symptoms arise. 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 Please excuse any errors in grammar or translation related to this dictation. Voice recognition software was utilized to prepare this document. documented in this encounter [facility] Work Phone: 03-30-2023 Instructions NATALIE Gonsalez - [...] contact the office if new symptoms arise. 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 Voiding after [...] you have a fever over 100 degrees. [facility] 02-22-2023 Hospital Discharge instructions Patient Education 02/22/2023 10:33:13 EU - [...] Up Care 02/03/2023 10:05:26 With:Jacqui Michael Address: [address] [place] [phone] Business (1) [facility] [place] [address]- [phone] Business (1) When: Unknown Comments:Office to schedule follow up in 1 to 2 months [facility] 02-03-2023 Hospital Discharge instructions Patient Education 02/03/2023 10:01:15 Urinary Tract Infection, Adult, Hcyu-kn-Ufai Urinary Tract Infection, Adult A urinary tract [...] Follow these instructions at home: Medicines Take btjo-fdm-ktvxvdr and prescription medicines only as told by [...] provider. Document Revised: 11/29/2020 Document Reviewed: 11/29/2020 [employer] Patient Education 2022 Privatext Follow Up Care 07/29/2022 09:55:50 With:Alec XIE, CARLY Grove, URO Address: When: Unknown Comments:Sched cysto [facility] 12-29-2022 Hospital Discharge instructions Patient Education 12/29/2022 15:03:31 Urinary Tract [...] Treatment for this condition includes: Antibiotic medicine. Ftsh-bam-zyxlitk medicines to treat discomfort. Drinking enough water [...] Follow these instructions at home: Medicines Take xvla-dci-itkaugu and prescription medicines only as told by [...] provider. Document Revised: 11/29/2020 Document Reviewed: 11/29/2020 [employer] Patient Education 2022 [employer]. Follow Up Care 12/23/2022 14:08:39 With:Alec XIE, CARLY Grove, URO Address: When: Unknown [facility] 11-21-2022 Progress note Note Date/Time November 21, 2022 11:31am [facility] [address] [place] [address] Cardiology Progress Note Signed Patient: Kate Hagen MR#: [id number] : 1950 Acct:[id number] Age/Sex: 71 / F Adm Date: 3 Loc: Room: [address] [place] [address] Type: ADM IN Attending Dr: Gina Poole [...] % (Auto) 70.8 Lymph % (Auto) 18.9 Glascock % (Auto) 7.3 Eos % (Auto) 2.7 Baso % (Auto) 0.3 Nucleat RBC Rel Count 0.1 Neut # (Auto) 4.1 Lymph # (Auto) 1.1 [place]ock # (Auto) 0.4 Eos # (Auto) 0.2 Baso # (Auto) 0.0 PHA Creatinine Clear Sodium Potassium Chloride Carbon Dioxide Anion Gap BUN Creatinine Est GFR (CKD-EPI) Glucose POC Glucose 123 135 Calcium 11/21/22 11/21/22 04:47 08:37 Corrected WBC Uncorrected WBC Count RBC Hgb Hct MCV MCH MCHC RDW Plt Count MPV Neut % (Auto) Lymph % (Auto) Glascock % (Auto) Eos % (Auto) Baso % (Auto) Nucleat RBC Rel Count Neut # (Auto) Lymph # (Auto) Glascock # (Auto) Eos # (Auto) Baso # [...] aggressive diuresis Documented By: Colin Carrillo MD, [facility] 3 [id number] Signed By: <Electronically signed by [facility] Colin Carrillo> 11/21/22 1139 [facility] Work Phone: 1(941) 978-308907-21-2023 Progress note Author Gina Poole [facility] November 20, 2022 2:12pm Note Date/Time November 20, 2022 2:12 pm [facility] [address] [place] [address] Hospitalist Progress Note Signed Patient: Kate Hagen MR#: [id number] : 1950 Acct:[id number] Age/Sex: 71 / F Adm Date: 3 Loc: Room: [address] [place] [address] Type: ADM IN Attending Dr: Gina Poole [...] Insuln.Pen SUBCUT 11/19/23 11:59 Not Given TID.WM.HS [facility] Protocol Magnesium Oxide 400 mg [...] <Electronically signed by Gina Poole DO> 11/20/[address] [place] [address] Ctr Work Phone: 1(884) 815-936007-21-2023 Progress note Author Rey Arriaga [facility] November 20, 2022 10:30am Note Date/Time November 20, 2022 10:3 0am [facility] [address] [place] [address] Cardiology Progress Note Signed Patient: Kate Hagen MR#: [id number] : 1950 Acct:[id number] Age/Sex: 71 / F Adm Date: 3 Loc: Room: 7I4471-5 Type: ADM IN Attending Dr: Gina Poole [...] MPV Neut % (Auto) Lymph % (Auto) [place]ascock % (Auto) Eos % (Auto) Baso % (Auto) Nucleat RBC Rel Count Neut # (Auto) Lymph # (Auto) [place] # (Auto) Eos # (Auto) Baso # [...] % (Auto) 68.4 Lymph % (Auto) 22.4 [place] % (Auto) 6.7 Eos % (Auto) 2.1 Baso % (Auto) 0.4 Nucleat RBC Rel Count 0.1 Neut # (Auto) 3.7 Lymph # (Auto) 1.2 [place] # (Auto) 0.4 Eos # (Auto) 0.1 [...] MPV Neut % (Auto) Lymph % (Auto) [place] % (Auto) Eos % (Auto) Baso % (Auto) Nucleat RBC Rel Count Neut # (Auto) Lymph # (Auto) [place] # (Auto) Eos # (Auto) Baso # [...] signed by MD Rey Arriaga> 11/20/22 1030 [facility] Work Phone: 1(967) 751-136207-20-2023 Consult note Author Rey Arriaga [facility] November 19, 2022 2:59pm Note Date/Time November 19, 2022 2:59 pm [facility] [address] [place] [address] Cardiology Consult Note Signed Patient: Kate Hagen MR#: [id number] : 1950 Acct:[id number] Age/Sex: 71 / F Adm Date: 3 Loc: Room: [address] [place] [address] Type: ADM IN Attending Dr: Gina Poole [...] dulaglutide 0.75 mg/0.5 mL subcutaneous pen injector ([employer]) 0.75 mg subcut QWEEK 11/18/22 [History Confirmed [...] Lymph # (Auto) 1.5 1.6 (1.00-4.8) x10E3/uL [place] # (Auto) 0.4 0.4 (0.0-0.8) x10E3/uL Eos [...] signed by MD Rey Arriaga> 11/19/22 1459 [facility] Work Phone: 1(623) 270-103507-20-2023 Progress note Author Gina Poole [facility] November 19, 2022 11:54am Note Date/Time November 19, 2022 11:5 4am [facility] [address] [place] [address] Hospitalist Progress Note Signed Patient: Kate Hagen MR#: [id number] : 1950 Acct:[id number] Age/Sex: 71 / F Adm Date: 3 Loc: Room: [address] [place] [address] Type: ADM IN Attending Dr: Gina Poole [...] 11/19/22 00:14 Alprazolam 0.5 Mg Tablet PO 01/15/24 22:36 1 mg BID PRN Administration Anxiety [...] Units/3 Ml Insuln.Pen SUBCUT 11/19/23 11:59 TID.WM.HS [facility] Protocol Magnesium Oxide 400 mg 11/19/22 09:00 [...] <Electronically signed by Gina Poole DO> 11/19/22 5715 [facility] Work Phone: 1(848) 454-437207-20-2023 History and physical note Author Gina Poole [facility] November 18, 2022 10:13pm Note Date/Time November 18, 2022 10:1 1pm [facility] [address] [place] [address] Hospitalist H&P Signed Patient: Kate Hagen MR#: [id number] : 1950 Acct:[id number] Age/Sex: 71 / F Adm Date: 3 Loc: Room: [address] [place] [address] Type: ADM IN Attending Dr: Gina Poole [...] % (Auto) 22.5 % (.) 11/18/22 17:51 Glascock % (Auto) 5.7 % (.) 11/18/22 17:51 Eos % (Auto) 1.7 % (.) 11/18/22 17:51 Baso % (Auto) 0.7 % (.) 11/18/22 17:51 Nucleat RBC Rel Count 0.0 /100 WBC (0-0.5) 11/18/22 17:51 Neut # (Auto) 4.7 x10E3/uL (1.8-7.7) 11/18/22 17:51 Lymph # (Auto) 1.5 x10E3/uL (1.00-4.8) 11/18/22 17:51 [place]ock # (Auto) 0.4 x10E3/uL (0.0-0.8) 11/18/22 17:51 [...] (# of days): 3 Documented By: Gina Pooel DO 11/18/2224 06 Signed By: <Electronically signed by Gina Poole, > 11/18/22 2217 [facility] Work Phone: [phone]) 469-321506-27-2023 NoteHypertension is well controlled 108/62 Continue all meds Renal function stable for her- will continue to monitor and pt states she is to start F/U with Dr Zhou in [place] for nephrologyUn[facility]06-27-2023 NoteNYHC- III- currently fluid overloaded and weight gain of 15 pounds in 2 weeks Continue GDMT- farxiga Diuretic therapy-increase bumex to 2mg in am and 1 mg in pm, repeat BMP next week Monitor daily weights, I&O, fluid restriction 1.5-2L/day, renal function and electrolytes- RTC 1month for re-evalautionUnDiley Ridge [facility]06-27-2023 Note Repeat limited echo to assess RV function, RVSP- rt sided pressures, and noted D shaped septum on inpt echo.[facility]06-27-2023 Note CHY1fl1-OWAx= 4 continue metoprolol for rate control, and eliquis anticoagulationUnDiley Ridge Medical Center06-27-2023 NotePatient here for follow up [...] weakness. All other systems reviewed and are negative.[facility] 10-27-2022 NoteUTP CARDIOLOGY PROGRESS NOTE HPI: Kate Hagen is a 71 y.o. female here [...] fever, chills. She recently was inpt at [facility] for resp failure, exacerbation of HFpEF, [...] Tachycardia - sinus Hypertension Paroxysmal atrial fibrillation; RDMKZ7XLIn - 4 (age, female, HTN, HF) - [...] reviewed CV Testin10/09/22 Echo (more content not included)...[facility]05-23-2023 Note [facility] Note Chief Complaint: patient is here today for event monitor follow up HPI: Kate Hagen is a 71 y.o. female Chief Complaint: Patient here for 3 mo follow up CHF and afib. She was started on spironolactone at last apt in Apr 2022 by Linette Sanchez CNP. Had labs a few days after that. Denies chest pain and palpitations. Denies lightheadedness and bleeding on Eliquis. HPI: Kate was originally seen by [facility] during her admission to [facility] at the beginning of March,. She [...] 04/13/2022 Today she was just discharged from [facility] where she was admitted for UTI. [...] pressures. Event monitor: Sinus (more content not included)...[facility]04-27-2023 Evaluation note* Encounter Date Diagnosis Assessment [...] We will check PTH and vitamin D. [employer] [facility] 03-29-2023 Hospital Discharge instructions Patient Education [...] calories than your body needs, your body palacio fat to get the energy it needs. [...] 04/19/2006 Document Revised: 01/06/2019 Document Reviewed: 03/19/2017 [employer] Patient Education 2020 [employer]. Follow Up Care 06/10/2022 11:44:43 With:Alec XIE, CARLY [place], URO Address: When:Within 6 Month(s) [facility] Chief Complaint: Patient here for 3 mo follow up CHF and afib. She was started on spironolactone at last apt in Apr 2022 by Linette Sanchez CNP. Had labs a few days after that. Denies chest pain and palpitations. Denies lightheadedness and bleeding on Eliquis. HPI: Kate was originally seen by [facility] during her admission to [facility] at the beginning of March,. She [...] 04/13/2022 Today she was just discharged from [facility] where she was admitted for UTI. [...] fraction (HFrEF) Tachycardia Hypertension Paroxysmal atrial fibrillation; [id number] - 4 (age, female, HTN, HF) - she requires long-term anticoagulation for stroke prophylaxis. She denies bleeding issues. Continue Eliquis 5mg BID. Nonrheumatic aortic valve stenosis; moderate on echocardiogram 08/2021 Benign hypertensive kidney disease with chronic kidney disease stage I through stage IV Plan: The patient's daughter tells me that her mother's heart rate is typical (more content not included)...[facility]02-08-2023 Hospital Discharge instructions Patient Education 06/10/2022 [...] Follow these instructions at home: Medicines Take jncf-vmw-zvehvff and prescription medicines only as told by [...] or the blood stops without treatment. Take uiyi-rni-sqqspru and prescription medicines only as told by your health care provider. Drink enough fluid to keep your urine clear or pale yellow. This information is not intended to replace advice given to you by your health care provider. Make sure you discuss any questions you have with your health care provider. Document Released: 04/19/2006 Document Revised: 09/13/2019 Document Reviewed: 05/22/2017 [employer] Patient Education 2020 [employer]. Follow Up Care 05/06/2022 14:07:41 With:Alec XIE, CARLY Grove, URO Address: When: Unknown [facility] 12-12-2022 NotePatient here for follow up [facility] for CHF. She was seen as inpatient consult on 03/06/2022 by Madi Sanchez CNP. She was just discharged from [facility] again today for UTI and pneumonia. She will be having iron infusions set up soon for anemia. Denies chest pain and bleeding on Eliquis. Review of Systems Cardiovascular: Positive for dyspnea on exertion. Respiratory: Positive for shortness of breath. Musculoskeletal: Positive for muscle weakness. Neurological: Positive for seizures (hx of). All other systems reviewed and are negative.[facility] 04-13-2022 NoteCardiovascular Medicine [facility] SUBJECTIVE Chief Complaint Patient presents with Congestive Heart Failure Atrial Fibrillation Kate Hagen is a 71 y.o. female here for follow-up. HPI Kate was originally seen by [facility] during her admission to [facility] at the beginning of March,. She [...] 04/13/2022 Today she was just discharged from [facility] where she was admitted for UTI. [...] is warm and dry. (more content not included)...[facility]10-17-2022 Hospital Discharge instructions Patient Education 02/16/2022 [...] drinks. ?Tomatoes and foods made with tomatoes. ?Grampian or spicy foods. ?Chocolate and peppermint. Do not drink alcohol. General instructions Take rtif-gha-ewhhcig and prescription medicines only as told by [...] unsweetened, w/added ascorbic [address] [place] 1 cup 0.7 Vegetables Cooked Green beans 1 cup 4.0 Carrots 1/2 cup sliced 2.3 Peas 1 cup 8.8 Potato (baked, with skin) 1 medium potato 3.8 Raw [place] (with peel) 1 cucumber 1.5 Lettuce 1 [...] 8.7 Peanuts 1/2 cup 7.9 Chart from [facility] 2012. 02/16/2022 13:00:15 Colonoscopy, Care After Surgery [...] Up Care 12/31/2021 15:48:46 With:Kylah BELL Address: [address] [place], [place] [address]dict Maria Fern[address] [place] [address] [facility] (1) When: Unknown Comments:Call for any problems.Office will call to schedule follow up appointment (appointment for 1-2 weeksfrom today) [facility]10-17-2022 Evaluation + Plan noteExtracted from: Title:Anesthesia post op endo Author:Shawn Huddleston MD Date:02/16/22 Plan Transfer/ Discharge: Patient can be discharged from PACU when criteria met. Condition good. Extracted from: Title:Anesthesia Pre-Op endo Author:Mine Huddleston MD Date:02/16/22 Plan [place] [employer]esthesi[employer] (ASA) physical status classification: [...] Diff 12/31/21 * Comprehensive Metabolic Panel 12/31/21 [facility]08-31-2022 Hospital Discharge instructions Patient Education 12/31/2021 [...] drinks. ?Tomatoes and foods made with tomatoes. ?Grampian or spicy foods. ?Chocolate and peppermint. Do not drink alcohol. General instructions Take qdyo-drt-hsgktis and prescription medicines only as told by [...] 07/09/2004 Document Revised: 08/15/2018 Document Reviewed: 08/15/2018 [employer] Patient Education Get Me Listed Follow Up Care 11/24/2021 14:47:03 With:Lani Wasserman CNP Address: When:1 to 2 weeks [facility] 08-13-2022 Evaluation note* Encounter [...] understanding and is agreeable with treatment plan [employer] [facility] 12-01-2021 History general Narrative - Reported* Type Description Date Medical History Macular degeneration bilateral e yes Medical History Continuous oxygen 2L/NC Medical History CHF- Does not follow with Cardio logy, managed by PCP Dr. Lora Medical History COPD Medical History Hx of COVID 04/2021 [employer] Other 12-01-2021 History general Narrative - Reported* [...] History HYSTERECTOMY 1994 Hospitalization History SEE ABOVE [employer] Other Consult note Author Rey Arriaga [facility] November 19, 2022 2:59pm Note Date/Time November 19, 2022 2:59 pm [facility] [address] [place] [address] Cardiology Consult Note Signed Patient: Kate Hagen MR#: [id number] : 1950 Acct:[id number] Age/Sex: 71 / F Adm Date: 3 Loc: Room: [address] [place] [address] Type: ADM IN Attending Dr: Gina Poole [...] Lymph # (Auto) 1.5 1.6 (1.00-4.8) x10E3/uL [place] # (Auto) 0.4 0.4 (0.0-0.8) x10E3/uL Eos [...] <Electronically signed by MD Rey Arriaga> 11/19/22 145 [facility] Work Phone: Discharge summary Author Gina Poole [facility] November 21, 2022 3:38pm Note Date/Time November 21, 2022 3:39 pm [facility] [address] [place] [address] Discharge Summary Signed Patient: Kate Hagen MR#: [id number] : 1950 Acct:[id number] Age/Sex: 71 / F Adm Date: 3 Loc: Room: [address] [place] [address]: Gina Poole DO Copies to: MD Gina Arambula II, ~ Providers Date of Discharge: 11/21/22 Discharging Provider: [...] % (Auto) 70.8, Lymph % (Auto) 18.9, Glascock % (Auto) 7.3, Eos % (Auto) 2.7, Baso % (Auto) 0.3, Nucleat RBC Rel Count 0.1, Neut # (Auto) 4.1, Lymph # (Auto) 1.1, Gl[place]ock # (Auto) 0.4, Eos # (Auto) 0.2, [...] metolazone 2.5 mg Tablet 2.5 mg PO DAILY@0730 30 Days Qty: 30 12RF Continued fluoxetine [...] signed by Gina Poole DO> 11/21/22 1538 [facility] Work Phone: Evaluation + Plan note Future Appointments Appointment Date:02/06/2022 01:00:00 PM Scheduled Provider: Location:[facility] Appointment Type:Surgery PAT COVID Testing Appointment Date:02/16/2022 10:30:00 AM Scheduled Provider: Location:[facility] Appointment Type:Surgery FT Appointment Date:02/16/2022 12:30:00 PM Scheduled Provider: Location:[facility] Appointment Type:Surgery FT Future Scheduled Tests Laboratory* Fecal WBC Lactoferrin 12/31/21 * Giardia lamblia, Direct Detection EIA 12/31/21 * O & P Exam, Routine 12/31/21 * Clostridium difficile by PCR 12/31/21 * Enteric Panel by PCR 12/31/21 * CBC w/ Auto Diff 12/31/21 * Comprehensive Metabolic Panel 12/31/21 Radiology* CT Abdomen/Pelvis w/ Contrast 12/31/21 [facility] Evaluation + Plan note Future Appointments Appointment Date:02/16/2022 10:30:00 AM Scheduled Provider: Location:[facility] Appointment Type:Surgery FT Appointment Date:02/16/2022 12:30:00 PM Scheduled Provider: Location:[facility] Appointment Type:Surgery FT Future Scheduled Tests Laboratory* Fecal WBC Lactoferrin 12/31/21 * Giardia lamblia, Direct Detection EIA 12/31/21 * O & P Exam, Routine 12/31/21 * Clostridium difficile by PCR 12/31/21 * Enteric Panel by PCR 12/31/21 * CBC w/ Auto Diff 12/31/21 * Comprehensive Metabolic [facility]31/21 [facility] Appointment Date:06/10/2022 09:30:00 AM Scheduled Provider:Jacqui Michael MD Location:[facility] Appointment Type:URO Office Visit Future Scheduled Tests Laboratory* Fecal WBC Lactoferrin 12/31/21 * Giardia lamblia, Direct Detection EIA 12/31/21 * O & P Exam, Routine 12/31/21 * Clostridium difficile by PCR 12/31/21 * Enteric Panel by PCR 12/31/21 * CBC w/ Auto Diff 12/31/21 * Comprehensive Metabolic Panel 12/31/21 [facility]ments Appointment Date:06/24/2022 08:30:00 AM Scheduled Provider: Location:[facility] Appointment Type:URO Nurse Visit Appointment Date:07/29/2022 09:00:00 AM Scheduled Provider:Jacqui Michael MD Location:[facility] Appointment Type:URO Office Visit Diagnostic Tests [...] Comprehensive Metabolic Panel 12/31/21 [facility] evaluation + Plan note Future Appointments Appointment Date:06/24/2022 08:30:00 AM Scheduled Provider: Location:[facility] Appointment Type:URO Nurse Visit Appointment Date:07/29/2022 09:00:00 AM Scheduled Provider:Jacqui Michael MD Location:[facility] Appointment Type:URO Office Visit Diagnostic Tests Pending * Urine Culture 06/10/22 Future Scheduled Tests Laboratory* Fecal WBC Lactoferrin 12/31/21 * Giardia lamblia, Direct Detection EIA 12/31/21 * O & P Exam, Routine 12/31/21 * Clostridium difficile by PCR 12/31/21 * Enteric Panel by PCR 12/31/21 * CBC w/ Auto Diff 12/31/21 * Comprehensive Metabolic Panel [facility]31/21 [facility]ments Appointment Date:07/29/2022 09:00:00 AM Scheduled Provider:Jacqui Michael MD Location:[facility] Appointment Type:URO Office Visit Future Scheduled Tests Laboratory* Fecal WBC Lactoferrin 12/31/21 * Giardia lamblia, Direct Detection EIA 12/31/21 * O & P Exam, Routine 12/31/21 * Clostridium difficile by PCR 12/31/21 * Enteric Panel by PCR 12/31/21 * CBC w/ Auto Diff 12/31/21 * Comprehensive Metabolic Panel 12/31/21 [facility] evaluation + Plan note Future Appointments Appointment Date:02/03/2023 09:00:00 AM Scheduled Provider:Jacqui Michael MD Location:[facility] Appointment Type:URO Office Visit Future Scheduled Tests Laboratory* Fecal WBC Lactoferrin 12/31/21 * Giardia lamblia, Direct Detection EIA 12/31/21 * O & P Exam, Routine 12/31/21 * Clostridium difficile by PCR 12/31/21 * Enteric Panel by PCR 12/31/21 * CBC w/ Auto Diff 12/31/21 * Comprehensive Metabolic Panel 12/31/21 [facility] evaluation + Plan note Future Appointments Appointment Date:02/08/2023 09:45:00 AM Scheduled Provider: Location:[facility] Appointment Type:Urology CALL PAT FT Appointment Date:02/22/2023 10:45:00 AM Scheduled Provider: Location:[facility] Appointment Type:Urology FT [facility] evaluation + Plan note Future Appointments Appointment Date:04/28/2023 09:45:00 AM Scheduled Provider:Jacqui Michael MD Location:[facility] Appointment Type:[facility]O [facility] Future Appointments Appointment Date:05/14/2023 01:20:00 PM Scheduled Provider:Lani Wasserman CNP Location:[facility] Appointment Type:[facility] Follow Up [facility] evaluation + Plan note Future Appointments Appointment Date:03/15/2024 10:45:00 AM Scheduled Provider:Jacqui Michael MD Location:[facility] Appointment Type:URO Office Visit [facility] evaluation note* Diagnosis Onset Date Resolution Status CHF (congestive heart failure) acute CHF exacerbation [facility] Work Phone: evaluation note* Diagnosis Onset Date Resolution Status Acute diastolic CHF (congest joan heart failure), NYHA class 3 acute Aortic stenosis acute CHF (congestive heart failure) acute CHF exacerbation acute Pulmonary hypertension [facility] Work Phone: evaluation note* Diagnosis Paroxysmal atrial fibrillation ([facility])- Primary Atrial fibrillation Anticoagulated Encounter for long-term (current) use of anticoagulants Nonrheumatic aortic valve stenosis Abnormal echocardiogram Nonspecific (abnormal) findings on radiological and other examination of other intrathoracic organs Pulmonary hypertension (CMS/HCC) Other chronic pulmonary heart diseases Stage 3a chronic kidney disease ([facility]/HCC) Current smoker Diabetes mellitus type II, non insulin dependent ([facility]/HCC) Type II or unspecified type diabetes mellitus without mention of complication, not stated as uncontrolled BMI 31.0-31.9,adult Mixed hyperlipidemia Essential hypertension Unspecified essential hypertension documented in this encounter [facility] Work Phone: Evaluation note* Diagnosis Nonrheumatic aortic valve stenosis Pulmonary hypertension (CMS/HCC) Other chronic pulmonary heart diseases documented in this encounter [facility] Work Phone: Evaluation note* Diagnosis Nonrheumatic aortic valve stenosis Pulmonary hypertension ([facility]) Other chronic pulmonary heart diseases documented in this encounter [facility] Work Phone: Evaluation note* Diagnosis Closed displaced intertrochanteric fracture of right femur, initial encounter ([facility])- [facility] Closed displaced intertrochanteric fracture of right femur, initial encounter ([facility]) [facility] Diagnosis Anticoagulated- Primary Encounter for long-term (current) use of anticoagulants Paroxysmal atrial fibrillation ([facility]) Atrial fibrillation Nonrheumatic aortic valve stenosis Abnormal echocardiogram Nonspecific (abnormal) findings on radiological and other examination of other intrathoracic organs Pulmonary hypertension ([facility]) Other chronic pulmonary heart diseases Mixed hyperlipidemia Essential hypertension Unspecified essential hypertension Diabetes mellitus type II, non insulin dependent ([facility]) Type II or unspecified type diabetes mellitus without mention of complication, not stated as uncontrolled Stage 3b chronic kidney disease ([facility]) BMI 25.0-25.9,adult Current smoker documented in this encounter [facility] Work Phone: Evaluation note* Diagnosis Edentulous- Primary Anodontia [facility] Diagnosis Edentulous- Primary Anodontia [facility]* Diagnosis Closed displaced intertrochanteric fracture of right femur, initial encounter ([facility])- Primary [facility] Diagnosis Closed displaced intertrochanteric fracture of right femur, initial encounter ([facility]) [facility] Author Gina Poole [facility] November 18, 2022 10:13pm Note Date/Time November 18, 2022 10:1 1pm [facility] [address] [place] [address] Hospitalist H&P Signed Patient: Kate Hagen MR#: [id number] : 1950 Acct:[id number] Age/Sex: 71 / F Adm Date: 3 Loc: Room: [address] [place] [address] Type: ADM IN Attending Dr: Gina Poole [...] dulaglutide 0.75 mg/0.5 mL subcutaneous [facility] 0.75 mg subcut QWEEK 11/18/22 [History Confirmed [...] % (Auto) 22.5 % (.) 11/18/22 17:51 Glascock % (Auto) 5.7 % (.) 11/18/22 17:51 Eos % (Auto) 1.7 % (.) 11/18/22 17:51 Baso % (Auto) 0.7 % (.) 11/18/22 17:51 Nucleat RBC Rel Count 0.0 /100 WBC (0-0.5) 11/18/22 17:51 Neut # (Auto) 4.7 x10E3/uL (1.8-7.7) 11/18/22 17:51 Lymph # (Auto) 1.5 x10E3/uL (1.00-4.8) 11/18/22 17:51 Glascock # (Auto) 0.4 x10E3/uL (0.0-0.8) 11/18/22 17:51 [...] <Electronically signed by Gina Poole DO> 11/18/22 6211 [facility] Work Phone: History of Present illness Narrative* [...] medication regimen. She denies medication side effects. [facility] 250 DO Work Phone: Hospital course Narrative No data available for this section [facility] Discharge instructions No data available for this section [facility] instructions[facility] Orders* Initiate Home Health Time Frame: 1 Day, Location: Determined By Patient Additional Instructions Home Health to manage care: - Full code - PT/OT eval and treat - Routine vital signs - Medication management and education - [facility] on 11/26 - result to Primary Care Provider -[facility] Work Phone: Progress note No data available for this section [facility] Promress note Author Gina Poole [facility] November 19, 2022 11:54am Note Date/Time November 19, 2022 11:5 4am [facility] [address] [place], [place] [id number] Hospitalist Progress Note Signed Patient: Kate Hagen MR#: [id number] : 1950 Acct:[id number] Age/Sex: 71 / F Adm Date: 3 Loc: 4 Room: [address] [place] [address] Type: ADM IN Attending Dr: Gina Poole [...] [facility] Work Phone: Progress note Author Rey Arriaga [facility] November 20, 2022 10:30am Note Date/Time November 20, 2022 10:3 0am [facility] [address] [place] [address] Cardiology Progress Note Signed Patient: Kate Hagen MR#: [id number] : 1950 Acct:[id number] Age/Sex: 71 / F Adm Date: 3 Loc: 4P Room: [address] [place] [address] Type: ADM IN Attending Dr: Gina Poole [...] MPV Neut % (Auto) Lymph % (Auto) Glascock % (Auto) Eos % (Auto) Baso % (Auto) Nucleat RBC Rel Count Neut # (Auto) Lymph # (Auto) Glascock # (Auto) Eos # (Auto) Baso # [...] % (Auto) 68.4 Lymph % (Auto) 22.4 Glascock % (Auto) 6.7 Eos % (Auto) 2.1 Baso % (Auto) 0.4 Nucleat RBC Rel Count 0.1 Neut # (Auto) 3.7 Lymph # (Auto) 1.2 Glascock # (Auto) 0.4 Eos # (Auto) 0.1 [...] MPV Neut % (Auto) Lymph % (Auto) Glascock % (Auto) Eos % (Auto) Baso % (Auto) Nucleat RBC Rel Count Neut # (Auto) Lymph # (Auto) Glascock # (Auto) Eos # (Auto) Baso # [...] signed by MD Rey Arriaga> 11/20/22 1030 [facility] Work Phone: Progress note Author Gina Poole [facility] November 20, 2022 2:12pm Note Date/Time November 20, 2022 2:12 pm [facility] [address] [place] [address] Hospitalist Progress Note Signed Patient: Kate Hagen MR#: [id number] : 1950 Acct:[id number] Age/Sex: 71 / F Adm Date: 3 Loc: Room: [address] [place] [address] Type: ADM IN Attending Dr: Gina Poole [...] Insuln.Pen SUBCUT 11/19/23 11:59 Not Given TID.WM.HS OSCAR Protocol Magnesium Oxide 400 mg 11/19/22 09:00 11/20/22 08:28 Magnesium Oxide 400 Mg Tablet PO 11/19/23 08:59 400 mg BID OSCAR Administration Metolazone 2.5 mg 11/20/22 07:30 11/20/22 08:29 Metolazone 2.5 Mg Tablet PO 11/20/23 07:29 2.5 mg DAILY@0730 OSCAR Administration Metoprolol Tartrate 50 mg 07/20/23 09:00 11/20/22 08:29 Metoprolol Tartrate 50 Mg [...] <Electronically signed by Gina Poole DO> 11/20/[address] [place] [address] Work Phone: Progress note Author [facility] November 21, 2022 11:31am Note Date/Time November 21, 2022 11:3 1am [facility] [address] [place] [address] Cardiology Progress Note Signed Patient: Kate Hagen MR#: [id number] : 1950 Acct:[id number] Age/Sex: 71 / F Adm Date: 3 Loc: Room: [address] [place] [address] Type: ADM IN Attending Dr: Gina Poole [...] 93 L Nasal Cannula 4 11/21/22 08:30 07/22/23 08:30 11/21/22 08:30 11/21/22 08:30 11/21/22 08:30 [...] % (Auto) 70.8 Lymph % (Auto) 18.9 Glascock % (Auto) 7.3 Eos % (Auto) 2.7 Baso % (Auto) 0.3 Nucleat RBC Rel Count 0.1 Neut # (Auto) 4.1 Lymph # (Auto) 1.1 Glascock # (Auto) 0.4 Eos # (Auto) 0.2 Baso # (Auto) 0.0 PHA Creatinine Clear Sodium Potassium Chloride Carbon Dioxide Anion Gap BUN Creatinine Est GFR (CKD-EPI) Glucose POC Glucose 123 135 Calcium 11/21/22 11/21/22 04:47 08:37 Corrected WBC Uncorrected WBC Count RBC Hgb Hct MCV MCH MCHC RDW Plt Count MPV Neut % (Auto) Lymph % (Auto) Glascock % (Auto) Eos % (Auto) Baso % (Auto) Nucleat RBC Rel Count Neut # (Auto) Lymph # (Auto) Glascock # (Auto) Eos # (Auto) Baso # [...] aggressive diuresis Documented By: Colin Carrillo MD, [facility] 3 1127 Signed By: <Electronically signed by MD PLACIDO Carrillo> 11/21/22 1131 [facility] Work Phone: Reason for referral (narrative)* Consultation (Routine) - Authorized Specialty Diagnoses / Procedures Referred By Contac t Referred To Contact Cardiology Diagnoses Paroxysmal atrial fibrillation (CMS/HCC) Procedures Follow Up In Cardiology Annika Kaba, JERMAINE-INDUSTRIAL TRAINER [address] [facility] 2, [email or web address] [address] [place] [address] Referral ID Status Reason Start Date Expiration Date V isits Requested Visits Authorized [id number] Authorized 03/30/2023 03/29/2024 1 1 * CV Imaging (Routine) - Pending Review Specialty Diagnoses / Procedures Referred By Jack lorenzo Referred To Contact Cardiology Diagnoses Nonrheumatic aortic valve stenosis Pulmonary hypertension (CMS/HCC) Procedures Transthoracic Echo (TTE) Complete AL ECHO TRANSTHORC R-T 2D W/WO M-MODE REC F-UP/LMTD AL DOP ECHOCARD COLOR FLOW VELOCITY MAPPING AL DOP ECHOCARD PULSE WAVE W/SPECTRAL F-UP/LMTD STD Annika Kaba APRN-CNP [address] [address], [address] [address] Referral ID Status Reason Start Date Expiration Date Visits Requested Visits Authorized [id number] Pending Review Perform Procedure 3 03/29/2024 1 1 [facility] Work Phone: Reason for referral (narrative)* Consultation (Routine) - Authorized Specialty Diagnoses / Procedures Referred By Jack lorenzo Referred To Contact Cardiology Diagnoses Paroxysmal atrial fibrillation (CMS/HCC) Procedures Follow Up In Cardiology Annika Kaba APRN-CNP [address] [place] [address], [address] [address] Referral ID Status Reason Start Date Expiration Date V isits Requested Visits Authorized [id number] Authorized 07/26/2023 07/25/2024 1 1 [facility] Work Phone: Summary Purpose Family History Relationship Condition Age at Onset Recorded Date/T [...] m ellitus: Sister(V18.0, Z83.3) Status:Active Advance Directives Advance Directive Response Recorded Date/ Time Advance Directives No November 18 5:49pm Latest Code Status on File Code Status Date Activated Date Inactivated Comments Full Code 05/13/2023 10:21 PM 05/18/2023 7:57 PM Question Answer Comments Documentation of decision process for this code status: Discussed with patient or surrogate. This is the code status chosen by the patient/surrogate. Latest Code Status on File Code Status Date Activated Date Inactivated Comments Full Code 05/13/2023 10:21 PM 05/18/2023 7:57 PM Question Answer Comments Documentation of decision process for this code status: Discussed with patient or surrogate. This is the code status chosen by the patient/surrogate. Latest Code Status on File Code Status Date Activated Date Inactivated Comments Full Code 05/13/2023 10:21 PM 05/18/2023 7:57 PM Question Answer Comments Documentation of decision process for this code status: Discussed with patient or surrogate. This is the code status chosen by the patient/surrogate. 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 Reason for Referral Specialty Diagnoses / Procedures Referred By Jack lorenzo Referred To Contact Dentistry Diagnoses Edentulous Meng Leos DMD, MD [facility] [place] [address] Dentistry [phone] [phone] Referral ID Status Reason Start Date Expiration Date V isits Requested Visits Authorized [id number] Authorized 08/18/2023 02/14/2024 3 3 Scheduling Instructions Please call the [facility] at to schedule an appointment if one was not made for you today. Comments Please treat patient for current denture adjustment, and if possible new dentures. Patient had mandibular fracture in May 2023. Specialty Diagnoses / Procedures Referred By Contac t Referred To Contact Radiology Diagnoses Closed displaced intertrochanteric fracture of right femur, initial encounter ([facility]) Procedures XR FEMUR RIGHT MINIMUM 2 VIEWS Kayden Lee PA-C [address] [place] [address] S DIAGNOSTIC RADIOLOGY [address] [place] [address] [place] [address] Referral ID Status Reason Start Date Expiration Date V isits Requested Visits Authorized [id number] Authorized 06/07/2023 06/06/2024 1 1 Specialty Diagnoses / Procedures Referred By Contac t Referred To Contact Radiology Diagnoses Closed displaced intertrochanteric fracture of right femur, initial encounter ([facility]) Procedures XR HIP RIGHT W/ PELVIS MIN 2-3 VIEWS Kayden Lee PA-C [address] [place] [address] [facility] DIAGNOSTIC RADIOLOGY [address] [place] [address] [place] [address] Referral ID Status Reason Start Date Expiration Date V isits Requested Visits Authorized [id number] Authorized 06/07/2023 06/06/2024 1 1 Specialty Diagnoses / Procedures Referred By Contac t Referred To Contact Cardiology Diagnoses Nonrheumatic aortic valve stenosis Pulmonary hypertension (CMS/HCC) Procedures Transthoracic Echo (TTE) Complete AL ECHO TRANSTHORC R-T 2D W/WO M-MODE REC F-UP/LMTD AL DOP ECHOCARD COLOR FLOW VELOCITY MAPPING AL DOP ECHOCARD PULSE WAVE W/SPECTRAL F-UP/LMTD STD Annika Kaba, TORPEDO MAN-INDUSTRIAL TRAINER [address] [facility] 2, [address] [place] [address] Referral ID Status Reason Start Date Expiration Date Visits Requested Visits Authorized [id number] Pending Review Perform Procedure 3 03/29/2024 1 1 Additional Source Comments INFORMATION SOURCE (unrecogn ized section and content) DATE CREATED AUTHOR 10/21/2017 [facility] DATE CREATED AUTHOR AUTHOR'S ORGANIZ ATION 10/06/2021 [facility] DATE CREATED AUTHOR AUTHOR'S ORGANIZ ATION 09/13/2022 [facility] DATE CREATED AUTHOR AUTHOR'S ORGANIZ ATION 11/02/2022 [facility] DATE CREATED AUTHOR AUTHOR'S ORGANIZ ATION 12/24/2022 [facility] DATE CREATED AUTHOR AUTHOR'S ORGANIZ ATION 12/29/2022 [facility] DATE CREATED AUTHOR AUTHOR'S ORGANIZ ATION 12/30/2022 [facility] DATE CREATED AUTHOR AUTHOR'S ORGANIZ ATION 05/09/2023 [facility] DATE CREATED AUTHOR AUTHOR'S ORGANIZ ATION 08/13/2023 [facility] DATE CREATED AUTHOR AUTHOR'S ORGANIZ ATION 09/09/2023 [facility] DATE CREATED AUTHOR AUTHOR'S ORGANIZ ATION 09/10/2023 [facility] DATE CREATED AUTHOR AUTHOR'S ORGANIZ ATION 10/15/2023 [facility] Specialists EPIC REASON FOR VISIT (unrecogniz ed section and content) Reason Comments Follow-up 4m Specialty Diagnoses / Procedures Referred By Jack t Referred To Contact Cardiology Diagnoses Nonrheumatic aortic valve stenosis Pulmonary hypertension (CMS/HCC) Procedures Transthoracic Echo (TTE) Complete AL ECHO TRANSTHORC R-T 2D W/WO M-MODE REC F-UP/LMTD AL DOP ECHOCARD COLOR FLOW VELOCITY MAPPING AL DOP ECHOCARD PULSE WAVE W/SPECTRAL F-UP/LMTD STD Annika Kaba, TORPEDO MAN-INDUSTRIAL TRAINER [facility], [address] [place] [address] Referral ID Status Reason Start Date Expiration Date Visits Requested Visits Authorized [id number] Pending Review Perform Procedure 03/29/2024 1 1 Reason Comments Care Coordination Transitional Care Management Reason Comments Post-op Follow-up Specialty Diagnoses / Procedures Referred By Contac t Referred To Contact Radiology Diagnoses Closed displaced intertrochanteric fracture of right femur, initial encounter ([facility]) Procedures XR HIP RIGHT W/ PELVIS MIN 2-3 VIEWS Kayden Lee PA-C [address] [place] [address] [facility] DIAGNOSTIC RADIOLOGY [address] [place] [address] [place] [phone] Referral ID Status Reason Start Date Expiration Date Visits Re quested Visits Authorized [id number] Closed 06/07/2023 06/06/2024 1 1 Reason Comments Follow-up 2 months Specialty Diagnoses / Procedures Referred By Contac t Referred To Contact Cardiology Diagnoses Paroxysmal atrial fibrillation ([facility]/HCC) Procedures Follow Up In Cardiology Annika Kaba, TORPEDO MAN-INDUSTRIAL TRAINER [address] [facility] [address], [address] [address] Referral ID Status Reason Start Date Expiration Date V isits Requested Visits Authorized [id number] Authorized 03/30/2023 03/29/2024 1 1 Reason Comments Joint Pain Specialty Diagnoses / Procedures Referred By Contac t Referred To Contact Radiology Diagnoses Closed displaced intertrochanteric fracture of right femur, initial encounter ([facility]) Procedures XR FEMUR RIGHT MINIMUM 2 VIEWS Kayden Lee PA-C [address] [id number] [facility] RAD[facility]OLOG[facility] [address] [place] [address] [place] [address] Referral ID Status Reason Start Date Expiration Date Visits Re quested Visits Authorized [id number] Closed 09/06/2023 09/05/2024 1 1 Reason Comments Care Coordination Transitional Care Management Hospital follow-up Care Team (unrecognized sect ion and content) Team Status: Active Member Role Status Dates Shawn Barber II MD Primary Care Provider Active Team Status: Inactive Member Role Status Dates Shawn Barber II MD Primary Care Provider Active Venkatesh Trammell , Emergency Provider Active Gina Poole , DO Admit Provider, Attending Provider Active Hilary Antunez RN Other Provider Active Daniel Canela , DO Other Provider Active Colin Carrillo MD Other Provider Active Rey Arriaga MD Other Provider Active Jeffry Hardy MD Other Provider Active Farhat Saleem MD Other Provider Active Annika Kaba , TORPEDO MAN Other Provider Active Kellie Okeefe MD Other Provider Active Jack Cooley MD Other Provider Active Daniella Estrada MD Other Provider Active Sonia Urena , [facility] Other Provider Active Tatiana Shafer MD Other Provider Active Team Status: Active Member Role Status Dates Shawn Barber II MD Primary Care Provider Active Venkatesh Trammell , DO Emergency Provider Active Gina Poole , DO Admit Provider, Attending Provider Active Mobile Game Engineer Relationship Specialty Start Date End Date Shawn Barber MD [address] [place] [address] PCP - General 12/28/22 Shawn Barber MD [address] [place] [address] 12/28/22 Mobile Game Engineer Relationship Specialty Start Date End Date Shawn Barber MD [address] [place] [address] PCP - General 12/28/22 Shawn Barber MD [address] [place] [address] 12/28/22 Mobile Game Engineer Relationship Specialty Start Date End Date Shawn Barber MD [address] [place] [address] PCP - General 12/28/22 hSawn Barber MD [address] [place] [address] 12/28/22 Mobile Game Engineer Relationship Specialty Start Date End Date Shawn Barber MD [address] [place] [address] PCP - ACO Reach 09/24/22 Shawn Barber MD [address] [place] [address] PCP - General Internal Medicine 10/22/22Wednesday, NIKHIL Jeff [address] [place] [address] Licensed Practical Nurse Family Medicine 12/29/22 Becca Campos, MACHINE STONE POLISHER APPRENTICE [facility] 12/29/22 Mobile Game Engineer Relationship Specialty Start Date End Date Shawn Barber MD [address] [place] [address] PCP - General 12/28/22 Shawn Barber MD [address] [place] [address] 12/28/22 Mobile Game Engineer Relationship Specialty Start Date End Date Colt Live DO [address] [facility] [address] [place] [address] Physician Orthopaedic Surgery 07/03/23 Mobile Game Engineer Relationship Specialty Start Date End Date Colt Live DO [address] [place] [address] Physician Orthopaedic Surgery 07/03/23 Mobile Game Engineer Relationship Specialty Start Date End Date Colt Live DO [address] [place] [address] Physician Orthopaedic Surgery 07/03/23 Meng Leos DMD, MD [address] [place] [address] Physician Oral & Maxillofacial Surgery 09/04/23 Mobile Game Engineer Relationship Specialty Start Date End Date Colt Live DO [address] [place] [address] [place] [address] Physician Orthopaedic Surgery 07/03/23 Meng Leos DMD, MD [address] [place] [address] Physician Oral & Maxillofacial Surgery 09/04/23 Mobile Game Engineer Relationship Specialty Start Date End Date Colt Live DO [address] [place] [address] Physician Orthopaedic Surgery 07/03/23 Meng Leos DMD, MD [address] [place] [address] Physician Oral & Maxillofacial Surgery 09/04/23 Goals (unrecognized section and content) Goals may [...] BE BASED ON THE PRIMARY CLINICAL RECORDS. [facility] [employer] [facility] provides no warranty or guarantee of the accuracy or completeness of information in this document.
--- NOTE | 2023-10-25 20:34 | XR_ITS ---
The [address] [address] Patient Name: MARTIN HAGEN MRN: [id number] date: 1950 Sex: F Assigned Patient Location: ER Current Patient Location: ER Accession/Order Number: [id number] Exam Date: 10/25/2023 19:49 Report Date: 10/25/2023 21:34 At the request of: PHILL MARKER Procedure: XR chest 1V EXAM: XR chest 1V CLINICAL INDICATION: SOB TECHNIQUE: Portable frontal semi-erect view of the chest. COMPARISON: 05/13/2023 FINDINGS: Lines and tubes: None. Lungs: Mild interstitial and airspace opacities in the left lower lung zone. Stable left upper lobe calcified granuloma. No pleural effusion or pneumothorax. Heart: Cardiac and mediastinal contours are unremarkable. No overt pulmonary vascular congestion. Osseous structures: No acute abnormalities. XR/XR chest 1V IMPRESSION: Mild interstitial pneumonitis in the left lower lung zone. Electronically authenticated by: DEACON WHITFIELD Date: 10/25/2023 21:34
--- NOTE | 2023-10-25 20:34 | ED_ITS ---
HPI - SOB/Dyspnea General Chief Complaint: Shortness of Breath/Dyspnea Stated Complaint: Shortness of Breath Time Seen by Provider: 10/25/23 20:24 Source: patient Mode of arrival: ambulance History of Present Illness HPI Narrative: This 72-year-old female with a history of COPD and congestive heart failure who is on home oxygen is brought to the emergency department by EMS from home for evaluation of increasing shortness of breath. The patient does continue to smoke at least 2 cigarettes on a daily basis. She has not had a fever. She is on diuretics but states her legs are more swollen than usual and she has gained weight. She typically wears 3 L of supplemental oxygen. Upon EMS arrival they increased her to 5 L because her pulse ox was in the low 90s. She denies any chest pain. She has a dry cough. She admits that she does not have air conditioning in her house in the past week has been very difficult for her. Related Data Home Medications ?Medication ?Instructions ?Recorded ?Confirmed albuterol sulfate 90 mcg/actuation 2 puff inhalation Q4H PRN 10/08/22 10/25/23 aerosol inhaler (Ventolin HFA) shortness of breath or wheezing alprazolam 1 mg tablet 1 mg PO TID PRN anxiety 10/08/22 10/25/23 apixaban 5 mg tablet (Eliquis) 5 mg PO BID 10/08/22 10/25/23 brexpiprazole 1 mg tablet (Rexulti) 1 mg PO QDAY 10/08/22 10/25/23 cyclobenzaprine 10 mg tablet 10 mg PO .qhs PRN muscle spasm 10/08/22 10/25/23 dulaglutide 0.75 mg/0.5 mL 0.75 mg subcut QWEEK high blood 10/08/22 10/25/23 subcutaneous pen injector sugar (Trulicity) fluoxetine 40 mg capsule 40 mg PO DAILY 10/08/22 10/25/23 magnesium oxide 400 mg (241.3 mg 400 mg PO BID 10/08/22 10/25/23 magnesium) tablet metoprolol tartrate 50 mg tablet 50 mg PO BID 10/08/22 10/25/23 omeprazole 40 mg capsule,delayed 40 mg PO BID 10/08/22 10/25/23 release tizanidine 4 mg tablet 4 mg PO TID PRN muscle spasticity 10/08/22 10/25/23 atorvastatin 20 mg tablet (Lipitor) 20 mg PO DAILY 03/09/23 10/25/23 bumetanide 2 mg tablet 2 mg PO DAILY 03/09/23 10/25/23 dapagliflozin propanediol 10 mg 10 mg PO DAILY 03/09/23 10/25/23 tablet (Farxiga) estradiol 0.01% (0.1 mg/gram) 0.25 appful vaginal .2x a week 03/09/23 10/25/23 vaginal cream (Estrace) fluticasone 250 mcg-salmeterol 50 1 inh inhalation BID 03/09/23 10/25/23 mcg/dose blistr powdr for inhalation (Advair Diskus) lisinopril 20 mg tablet 20 mg PO DAILY 03/09/23 10/25/23 metolazone 2.5 mg tablet 2.5 mg PO DAILY 03/09/23 10/25/23 promethazine 25 mg tablet 25 mg PO Q6H PRN nausea and 03/09/23 10/25/23 vomiting wbxflgob-jcqwafmgs-[id number] 3.5 3 drp otic (ear) Q4H PRN ear pain 03/21/23 10/25/23 mg-10,000 unit/mL-1 % ear drops,susp levetiracetam 500 mg tablet 250 mg PO BID 05/11/23 10/25/23 (Keppra) hydrocodone 5 mg-acetaminophen 325 1 tab PO Q8H PRN pain 10/25/23 10/25/23 mg tablet pantoprazole 20 mg tablet,delayed 20 mg PO Q12H 10/25/23 10/25/23 release potassium chloride 20 mEq 20 meq PO DAILY 10/25/23 10/25/23 tablet,extended release Previous Rx's ?Medication ?Instructions ?Recorded calcium carbonate 500 mg (2.5 x 200 mg calcium (500 03/24/23 mg)) PO TID #90 tabs Allergies Allergy/AdvReac Type Severity Reaction Status Date / Time No Known Drug Allergies Allergy Verified 03/21/23 19:07 Review of Systems ROS Status of ROS 10 or more systems reviewed and unremark able except as noted in history and below [facility] Medical History (Updated 10/25/23 @ 21:45 by Harper Cordon MD) Hyponatremia ?E87.1 - Hypo-osmolality and hyponatremia (ICD-10) Acute hypokalemia ?E87.6 - Hypokalemia (ICD-10) Closed fracture of right hip ?S72.001A - Fracture of unspecified part of neck of right femur, initial encounter for closed fracture (ICD-10) Fall ?W19.XXXA - Unspecified fall, initial encounter (ICD-10) Closed fracture of left condylar process of mandible ?S02.612A - Fracture of condylar process of left mandible, initial encounter for closed fracture (ICD-10) UTI (urinary tract infection) ?N39.0 - Urinary tract infection, site not specified (ICD-10) Hypocalcemia ?E83.51 - Hypocalcemia (ICD-10) CKD (chronic kidney disease) stage 4, GFR 15-29 ml/min ?N18.4 - Chronic kidney disease, stage 4 (severe) (ICD-10) Chronic anemia ?D64.9 - Anemia, unspecified (ICD-10) Hemorrhoids ?K64.9 - Unspecified hemorrhoids (ICD-10) Diarrhea in adult patient ?R19.7 - Diarrhea, unspecified (ICD-10) New onset seizure without head trauma ?R56.9 - Unspecified convulsions (ICD-10) Acute kidney injury superimposed on CKD ?N17.9 - Acute kidney failure, unspecified (ICD-10) ?N18.9 - Chronic kidney disease, unspecified (ICD-10) Hypokalemia ?E87.6 - Hypokalemia (ICD-10) Hypomagnesemia ?E83.42 - Hypomagnesemia (ICD-10) Generalized seizure ?R56.9 - Unspecified convulsions (ICD-10) Acute otitis externa of left ear ?H60.502 - Unspecified acute noninfective otitis externa, left ear (ICD-10) UTI (urinary tract infection) due to Enterococcus ?N39.0 - Urinary tract infection, site not specified (ICD-10) ?B95.2 - Enterococcus as the cause of diseases classified elsewhere (ICD-10) Adrenal adenoma ?D35.00 - Benign neoplasm of unspecified adrenal gland (ICD-10) (HFpEF) heart failure with preserved ejection fraction ?I50.30 - Unspecified diastolic (congestive) heart failure (ICD-10) Chronic respiratory failure with hypoxia ?J96.11 - Chronic respiratory failure with hypoxia (ICD-10) Anemia due to chronic kidney disease ?N18.9 - Chronic kidney disease, unspecified (ICD-10) ?D63.1 - Anemia in chronic kidney disease (ICD-10) Heart murmur ?R01.1 - Cardiac murmur, unspecified (ICD-10) UTI due to Klebsiella species ?N39.0 - Urinary tract infection, site not specified (ICD-10) ?B96.89 - Other specified bacterial agents as the cause of diseases classified elsewhere (ICD-10) C. difficile diarrhea ?A04.72 - Enterocolitis due to Clostridium difficile, not specified as recurrent (ICD-10) Obesity ?E66.9 - Obesity, unspecified (ICD-10) Depression ?F32.A - Depression, unspecified (ICD-10) Hypertension ?I10 - Essential (primary) hypertension (ICD-10) Atrial fibrillation ?I48.91 - Unspecified atrial fibrillation (ICD-10) CKD (chronic kidney disease) stage 3, GFR 30-59 ml/min ?N18.30 - Chronic kidney disease, stage 3 unspecified (ICD-10) Reducible umbilical hernia ?K42.9 - Umbilical hernia without obstruction or gangrene (ICD-10) Hernia of anterior abdominal wall ?K43.9 - Ventral hernia without obstruction or gangrene (ICD-10) Diabetes ?E11.9 - Type 2 diabetes mellitus without complications (ICD-10) Anemia ?D64.9 - Anemia, unspecified (ICD-10) Hypocalcemia ?E83.51 - Hypocalcemia (ICD-10) CHF (congestive heart failure) ?I50.9 - Heart failure, unspecified (ICD-10) Edema ?R60.9 - Edema, unspecified (ICD-10) CHF (congestive heart failure) ?I50.9 - Heart failure, unspecified (ICD-10) COPD (chronic obstructive pulmonary disease) ?J44.9 - Chronic obstructive pulmonary disease, unspecified (ICD-10) Surgical History History of cholecystectomy ?Z90.49 - Acquired absence of other specified parts of digestive tract (ICD- 10) H/O: hysterectomy ?Z90.710 - Acquired absence of both cervix and uterus (ICD-10) Family History (Updated 10/09/22 @ 00:43 by Jennifer Trejo) Family/Other Family history of CHF (congestive heart failure) Family history of COPD (chronic obstructive pulmonary disease) Family history of hypertension Social History Smoking status: Current every day smoker Second hand tobacco smoke exposure: No Non-prescribed substance use: denies use Previous occupational history: retired Known occupational exposures/hazards: Yes Highest level of school completed/degree received: some college, no degree Are you now , , , , never or living with a partner: In a typical week, how many times do you talk on the telephone with family, friends, or neighbors: 3 or more times per week How often do you get together with friends or relatives: 3 or more times per week How often do you attend hoahaoism or evangelical services: 1-3 times per year Do you belong to any clubs or organizations such as hoahaoism groups unions, [employer] or athletic groups, or school groups: no Total score: 1 Score interpretation: A score of less than or equal to 1 indicates the most socially isolated. Little interest or pleasure in doing things: not at all Feeling down, depressed, or hopeless: not at all Feel stressed/tense/nervous/anxious/difficulty sleeping: not at all Due to disability, difficulty making decisions: No Do you think of yourself as: straight/heterosexual Gender Identity: female Exam Narrative Exam Narrative: Vital signs and Nursing Notes reviewed: Patient is afebrile, she is tachypneic with a respiratory rate of 22, she has a normal pulse, blood pressure is elevated at 163/90, she is not hypoxic on 3 L nasal cannula with pulse ox of 97% General: Nontoxic, chronically ill-appearing moderately overweight female, she is speaking in 3-4 word sentences HEENT: Normocephalic atraumatic, mucous membranes are moist and pink, eyes are clear, normal conjunctiva, vision is grossly intact, posterior pharynx is normal in appearance Neck: Supple, no meningeal signs, no anterior or posterior cervical lymphadenopathy Chest: Lungs are diffusely diminished with scattered expiratory wheezing and bibasilar rales, patient is speaking in 3-4 word sentences with mild pursed lip breathing CVS: Regular rate and rhythm S1-S2, no murmurs rubs or gallops, pulses are brisk and equal bilaterally ABD: Soft, nondistended, nontender, no rebound guarding or rigidity, bowel sounds are normal Extremities: Moving all extremities, 2+ lower extremity pitting edema with mild lower extremity redness. Skin: Normal in appearance without rash,pallor, petechiae or purpura Neuro: No focal deficits Constitutional Vital Signs, click to edit/add: Last Vital Signs Temp 98.7 F 10/25/23 20:30 Pulse 77 10/25/23 20:30 Resp 22 H 10/25/23 20:30 BP 138/81 10/25/23 21:58 Pulse Ox 96 10/25/23 21:00 O2 Del Method Nasal Cannula 10/25/23 21:00 O2 Flow Rate 3 10/25/23 21:00 Course Vital Signs Vital signs: Vital Signs Temperature 98.7 F 10/25/23 20:30 Pulse Rate 77 10/25/23 20:30 Respiratory Rate 22 H 10/25/23 20:30 Blood Pressure 163/90 H 10/25/23 20:30 Pulse Oximetry 97 10/25/23 20:30 Oxygen Delivery Method Nasal Cannula 10/25/23 20:30 Oxygen Delivery Flow Rate 3 10/25/23 20:30 Temperature 98.7 F 10/25/23 20:30 Pulse Rate 77 10/25/23 20:30 Respiratory Rate 22 H 10/25/23 20:30 Blood Pressure 138/81 10/25/23 21:58 Pulse Oximetry 96 10/25/23 21:00 Oxygen Delivery Method Nasal Cannula 10/25/23 21:00 Oxygen Delivery Flow Rate 3 10/25/23 21:00 MDM - SOB/Dyspnea MDM Narrative Medical decision making narrative: This 72-year-old female with a history of COPD and CHF who also has had anemia in the past and hypocalcemia and is on Eliquis due to a history of paroxysmal atrial fibrillation and according her daughter a leaky heart valve presents for evaluation of increasing shortness of breath. The patient states she has no air conditioning in her house in the last week has been difficult for her. She wears 3 L nasal cannula supplemental oxygen. Upon EMS arrival they increase it to 5 L due to her pulse ox being fairly low. The patient denies any fever. She does have a cough. She continues to smoke at least 2 cigarettes a day. She admits to increased weight and increased lower extremity swelling. She has 2+ lower extremity pitting edema and bibasilar rales. She also has expiratory wheezing. EKG done upon arrival was a sinus rhythm at 75 bpm with a first- degree AV block and a long QTc interval. She is not in A-fib today. An IV was placed and routine labs were ordered. She was given a DuoNeb for expiratory wheezing. She has a normal white count. Hemoglobin is low at 7.4. The patient states she has had blood transfusions in the past. She is on Eliquis. She denies any abdominal pain but states she does intermittently have dark tarry stools. Her daughter states she was scheduled for a colonoscopy but the provider who is supposed to perform the colonoscopy left the area. I did a rectal exam and an occult blood was ordered. She was typed and screened and a unit of packed red blood cells was ordered. The patient also has a calcium less than 4 today. She has had low calcium in the past. She was given 1 g of IV calcium for the hypocalcemia. Stool was positive for occult blood. Her ABG is consistent with a respiratory acidosis with a pH of 7.28 and pCO2 of 65. She was given 40 mg of IV Lasix as her BNP is greater than 17,000. She has a normal troponin. Her BUN and creatinine are at her baseline. The case was discussed with the hospitalist and the patient is excepted for admission to [facility]. Medical Records Medical records narrative: The [address] [address] XRay Report Signed Patient: MARTIN HAGEN MR#: [id number] : 1950 Acct:[id number] Age/Sex: 72 / F ADM Date: 10/25/23 Loc: ER Attending Dr: Ordering Physician: Harper Cordon Date of Service: 10/25/23 Procedure(s): XR chest 1V Accession Number(s): [id number] cc: Harper Cordon; Physician,Non-Staff Kurtis~ The [address] [address] Patient Name: MARTIN HAGEN MRN: [id number] date: 1950 Sex: F Assigned Patient Location: ER Current Patient Location: ER Accession/Order Number: [id number] Exam Date: 10/25/2023 19:49 Report Date: 10/25/2023 21:34 At the request of: HARPER MARKER Procedure: XR chest 1V EXAM: XR chest 1V CLINICAL INDICATION: SOB TECHNIQUE: Portable frontal semi-erect view of the chest. COMPARISON: 05/13/2023 FINDINGS: Lines and tubes: None. Lungs: Mild interstitial and airspace opacities in the left lower lung zone. Stable left upper lobe calcified granuloma. No pleural effusion or pneumothorax. Heart: Cardiac and mediastinal contours are unremarkable. No overt pulmonary vascular congestion. Osseous structures: No acute abnormalities. XR/XR chest 1V IMPRESSION: Mild interstitial pneumonitis in the left lower lung zone. Electronically authenticated by: DEACON WHITFIELD Date: 10/25/2023 21:34 Lab Data Labs: Lab Results 10/25/23 10/25/23 10/25/23 Range/Units 20:42 21:13 21:25 WBC 10.7 (4.0-11.0) 10^3/uL RBC 2.34 L (4.20-5.40) 10^6/uL Hgb 7.4 L (12.0-16.0) g/dL Hct 23.2 L* (36.0-48.0) % MCV 99.1 H (81.0-99.0) fL MCH 31.6 (26.7-34.0) pg MCHC 31.9 (29.9-35.2) g/dL RDW 13.9 (11.0-15.0) % Plt Count 281 (150-450) 10^3/uL MPV 9.9 (9.5-13.5) fL Neut % (Auto) 69.5 (43.0-75.0) % Lymph % (Auto) 21.4 (20.5-60.0) % Carolina % (Auto) 5.6 (1.7-12.0) % Eos % (Auto) 2.3 (0.9-7.0) % Baso % (Auto) 0.4 (0.2-2.0) % Neut # (Auto) 7.4 H (1.4-6.5) 10^3/uL Lymph # (Auto) 2.3 (1.2-3.8) 10^3/uL Carolina # (Auto) 0.6 (0.3-0.8) 10^3/uL Eos # (Auto) 0.2 (0.0-0.7) 10^3/uL Baso # (Auto) 0.0 (0.0-0.1) 10^3/uL Abs Immat Gran (auto) 0.08 H (0.00-0.03) 10^3/uL Imm/Tot Granulo (auto) 0.8 H (0.0-0.5) % Puncture Site ABG pH (7.350-7.450) ABG pCO2 (35.0-45.0) mmHg ABG pO2 (80.0-100.0) mmHg ABG HCO3 (22.0-26.0) mmol/L ABG O2 Saturation % ABG Base Excess (-2.0-2.0) mmol/L Jose Test (POSITIVE) O2 Liters/Min Sodium 136 (136-145) mmol/L Potassium 3.6 (3.5-5.1) mmol/L Chloride 95 L (98-107) mmol/L Carbon Dioxide 31.7 (21.0-32.0) mmol/L Anion Gap 12.9 BUN 48.0 H (7.0-18.0) mg/dL Creatinine 2.23 H (0.55-1.02) mg/dL Est GFR ( Amer) 26 L (>=60) Est GFR (Non-Af Amer) 21 L (>=60) BUN/Creatinine Ratio 21.5 Glucose 120 H (74-106) mg/dL Calcium <5.0 L* (8.5-10.1) mg/dL Total Bilirubin 0.4 (0.2-1.0) mg/dL AST 20 (15-37) U/L ALT 16 (14-59) U/L Alkaline Phosphatase 88 (46-116) U/L Troponin I High Sens 8.5 (4.0-51.3) pg/mL NT-Pro-B Natriuret Pep 14549.0 H* (<=900.0) pg/mL Total Protein 6.8 (6.4-8.2) g/dL Albumin 2.3 L (3.4-5.0) g/dL Globulin 4.5 g/dL Albumin/Globulin Ratio 0.5 Stool Occult Blood Positive A Blood Type Antibody Screen Crossmatch 10/25/23 10/25/23 Range/Units 21:30 22:15 WBC (4.0-11.0) 10^3/uL RBC (4.20-5.40) 10^6/uL Hgb (12.0-16.0) g/dL Hct (36.0-48.0) % MCV (81.0-99.0) fL MCH (26.7-34.0) pg MCHC (29.9-35.2) g/dL RDW (11.0-15.0) % Plt Count (150-450) 10^3/uL MPV (9.5-13.5) fL Neut % (Auto) (43.0-75.0) % Lymph % (Auto) (20.5-60.0) % Carolina % (Auto) (1.7-12.0) % Eos % (Auto) (0.9-7.0) % Baso % (Auto) (0.2-2.0) % Neut # (Auto) (1.4-6.5) 10^3/uL Lymph # (Auto) (1.2-3.8) 10^3/uL Carolina # (Auto) (0.3-0.8) 10^3/uL Eos # (Auto) (0.0-0.7) 10^3/uL Baso # (Auto) (0.0-0.1) 10^3/uL Abs Immat Gran (auto) (0.00-0.03) 10^3/uL Imm/Tot Granulo (auto) (0.0-0.5) % Puncture Site R radial ABG pH 7.287 L* (7.350-7.450) ABG pCO2 65.9 H* (35.0-45.0) mmHg ABG pO2 62.4 L (80.0-100.0) mmHg ABG HCO3 31.5 H (22.0-26.0) mmol/L ABG O2 Saturation 91.0 % ABG Base Excess 4.8 H (-2.0-2.0) mmol/L Jose Test Positive (POSITIVE) O2 Liters/Min 3 Sodium (136-145) mmol/L Potassium (3.5-5.1) mmol/L Chloride (98-107) mmol/L Carbon Dioxide (21.0-32.0) mmol/L Anion Gap BUN (7.0-18.0) mg/dL Creatinine (0.55-1.02) mg/dL Est GFR ( Amer) (>=60) Est GFR (Non-Af Amer) (>=60) BUN/Creatinine Ratio Glucose (74-106) mg/dL Calcium (8.5-10.1) mg/dL Total Bilirubin (0.2-1.0) mg/dL AST (15-37) U/L ALT (14-59) U/L Alkaline Phosphatase (46-116) U/L Troponin I High Sens (4.0-51.3) pg/mL NT-Pro-B Natriuret Pep (<=900.0) pg/mL Total Protein (6.4-8.2) g/dL Albumin (3.4-5.0) g/dL Globulin g/dL Albumin/Globulin Ratio Stool Occult Blood Blood Type O Positive Antibody Screen Negative Crossmatch See Detail ECG Data Attestation: I personally reviewed and interpreted this ECG as follows: (Sinus rhythm at 75 bpm with occasional PVCs, first-degree AV block, long QTc interval with a QTc of 471 ms, no acute ST segment elevation or T wave inversion) Discharge Plan Discharge Chief Complaint: Shortness of Breath/Dyspnea Clinical Impression: Congestive heart failure, Shortness of breath, COPD exacerbation, Anemia, Hypocalcemia, Chronic kidney disease (CKD) Patient Disposition: Admitted As Inpatient Time of Disposition Decision: 21:53 Condition: Good
--- NOTE | 2023-10-25 20:37 | ECG_ITS ---
The [facility] Test Date: 2023-10-25 Pat Name: MARTIN HAGEN Department: Room: - Gender: Female Otolaryngology Surgeon: : 1950 Requested By: [id number] Order Number: [id number] Reading MD: BRISA POOL Measurements Intervals [place] Rate: 76 P: 90 [place]: 154 QRS: 40 QRSD: 76 T: 28 QT: 442 QTc: 472 Interpretive Statements 1100 Sinus rhythm 1470 with occasional supraventricular premature complexes 8102 Low QRS voltage in chest leads 8304 Long QTc interval 9150 abnormal ECG Compared to ECG 05/11/2023 16:50:20 Low QRS voltage now present Electronically Signed On 10-25-2023 23:07:03 EDT by BRISA POOL
[2023-10-25] MEDS: METHYLPREDNISOLONE SOD SUCC PF 125 MG/2 ML VIAL IVP (20:45)
[2023-10-25 20:53] LABS: Basophils Percent Auto 0.4 % (0.2-2.0); Eosinophils Absolute Auto 0.2 10^3/uL (0.0-0.7); Eosinophils Percent Auto 2.3 % (0.9-7.0); Hemoglobin 7.4 g/dL (12.0-16.0); Immature Granulocytes Abs Auto 0.08 10^3/uL (0.00-0.03); Immature Granulocytes Pct Auto 0.8 % (0.0-0.5); Lymphocytes Absolute Auto 2.3 10^3/uL (1.2-3.8); Lymphocytes Percent Auto 21.4 % (20.5-60.0); Mean Corpuscular HGB Conc 31.9 g/dL (29.9-35.2); Mean Corpuscular Hemoglobin 31.6 pg (26.7-34.0); Mean Corpuscular Volume 99.1 fL (81.0-99.0); Mean Platelet Volume 9.9 fL (9.5-13.5); Monocytes Absolute Auto 0.6 10^3/uL (0.3-0.8); Monocytes Percent Auto 5.6 % (1.7-12.0); Neutrophils Absolute Auto 7.4 10^3/uL (1.4-6.5); Neutrophils Percent Auto 69.5 % (43.0-75.0); Platelet Count 281 10^3/uL (150-450); Red Blood Count 2.34 10^6/uL (4.20-5.40); Red Cell Distribution Width 13.9 % (11.0-15.0); White Blood Count 10.7 10^3/uL (4.0-11.0)
[2023-10-25 20:55] LABS: Hematocrit 23.2 % (36.0-48.0)
[2023-10-25] MEDS: MAGNESIUM SULFATE IN WATER 2 GM/50 ML PREMIX IV (20:55)
[2023-10-25] MEDS: IPRATROPIUM/ALBUTEROL SULFATE 3 ML AMPUL.NEB IH (21:06)
[2023-10-25] MEDS: ONDANSETRON PF 4 MG/2 ML VIAL IV (21:06)
--- NOTE | 2023-10-25 21:06 | RESP.RT ---
HHN given by nursing
[2023-10-25 21:11] LABS: Troponin I High Sensitivity 8.5 pg/mL (4.0-51.3)
--- NOTE | 2023-10-25 21:15 | ECG_ITS ---
The [facility] Test Date: 2023-10-25 Pat Name: MARTIN HAGEN Department: Room: Gender: Female [employer]: : 1950 Requested By: [id number] Order Number: [id number] Reading MD: BRISA POOL Measurements Intervals [place] Rate: 75 P: 69 [place]: 226 QRS: 31 QRSD: 78 T: 23 QT: 442 QTc: 471 Interpretive Statements 1100 Sinus rhythm 1470 with occasional supraventricular premature complexes 2231 First degree AV block 8304 Long QTc interval 9150 abnormal ECG Compared to ECG 10/25/2023 20:42:20 First degree AV block now present Electronically Signed On 10-26-2023 6:45:03 EDT by BRISA POOL
[2023-10-25 21:33] LABS: Alanine Aminotransferase 16 U/L (14-59); Albumin Globulin Ratio 0.5; Albumin Level 2.3 g/dL (3.4-5.0); Alkaline Phosphatase 88 U/L (46-116); Anion Gap 12.9; Aspartate Amino Transferase 20 U/L (15-37); BUN Creatinine Ratio 21.5; Bilirubin Total 0.4 mg/dL (0.2-1.0); Calcium <5.0 mg/dL (8.5-10.1); Carbon Dioxide 31.7 mmol/L (21.0-32.0); Chloride 95 mmol/L (98-107); Estimated GFR (African America 26 (>=60); Estimated GFR (Non-African Ame 21 (>=60); Globulin 4.5 g/dL; Glucose 120 mg/dL (74-106); Potassium 3.6 mmol/L (3.5-5.1); Sodium 136 mmol/L (136-145); Total Protein 6.8 g/dL (6.4-8.2)
--- NOTE | 2023-10-25 21:41 | PC.NURSE ---
Patient report increasing SOB worsening with exertion for a couple days. worse with the increased heat. hx of heartfailure, COPD. used rescue inhaler once, did not do any breathing treatment prior to arrival. patient lives at home with daughter and niece.
[2023-10-25] MEDS: CALCIUM GLUCONATE IV (21:58)
[2023-10-25] MEDS: [UNRECOGNIZED DRUG - OTHER] IV (21:58)
[2023-10-25] MEDS: FUROSEMIDE 40 MG/4 ML VIAL IVP (21:58)
[2023-10-25 22:00] LABS: Internal Control Within Normal Limits; Occult Blood Positive
[2023-10-25 22:28] LABS: Allen Test POSITIVE (POSITIVE); Base Excess ABG 4.8 mmol/L (-2.0-2.0); HCO3 ABG 31.5 mmol/L (22.0-26.0); Liters per Minute 3; O2 Mode NASAL CANULLA; PO2 ABG 62.4 mmHg (80.0-100.0)
[2023-10-25 22:29] LABS: Puncture Site R RADIAL
[2023-10-25 22:30] LABS: ABG PCO2 65.9 mmHg (35.0-45.0); pH ABG 7.287 (7.350-7.450)
--- OUTSIDE RECORDS SUMMARY | 2023-10-25 23:01 | XMS_ITS | CCD ---
Author Organization [facility]iniSyak Care Team Providers Care Environmental Science Program Director Name Role Phone JUANY BROWNYASIR Unavailable Unavailable KASANDRA BROWN Unavailable Unavailable SELF, REFERRED Unavailable Unavailable BARRY BARBER Unavailable Unavailable Smiley Davila Unavailable BARRY BARBER Primary Care Physician Ziggy Dean Unavailable JAG, DR MAHAMED Perez Admitting Unavailable HEMDENAE, DR MAHAMED Perez Attending Unavailable DR BARRY BARBER Primary Care Unavailable DR BARRY BARBER Primary Care Unavailable MIGUEL ., DR ESCALERA Admitting Unavailable HONadir ., DR ESCALERA Attending Unavailable HONadir ., DR ESCALERA Consulting Unavailable LYN PIPER Consulting Unavailable ADILENE ., FLAKITA Consulting Unavailable SIMON NORIEGA Consulting Unavailable NALLELY RANGEL Consulting Unavailable DR BARRY BARBER Primary Care Unavailable ZIGGY DEAN Attending Unavailable ZIGGY DEAN Admitting Unavailable MIGUEL ., DR ESCALERA Procedure Practitioner Unavail able HONadir ., DR ESCALERA Consulting Unavailable HONadir ., DR ESCALERA Attending Unavailable MIGUEL ., DR ESCALERA Admitting Unavailable DR BARRY BARBER Primary Care Unavailable LYN THOMASON Consulting Unavailable RON TADEO Consulting Unavailable DR BARRY BARBER Primary Care Unavailable ADELAIDA ., DR JOSE Berumen Admitting Unavailable ADELAIDA ., DR JOSE Berumen Attending Unavailable TAHMINA, DR CANDACE Ambrose Consulting Unavailable ADELAIDA ., DR JOSE Berumen Consulting Unavailable LUDMILA, DR ANITA Ambrose Consulting Unavailable JOSE ALBERTO CABA Consulting Unavailable INGRID LOJA Consulting Unavailable DR BARRY BARBER Primary Care Unavailable SALOMÓN, DR ASCENCIO Attending Unavailable SALOMÓN, DR ASCENCIO Admitting Unavailable JOHN RENEE Admitting Unavailable JOHN RENEE Attending Unavailable DR BARRY BARBER Primary Care Unavailable JOHN RENEE Consulting Unavailable INES WELCH Consulting Unavailable DR BARRY BARBER Primary Care Unavailable DANN, INES Attending Unavailable DANN, INES Admitting Unavailable ZIEBER, DR ANITA Ambrose Consulting Unavailable KABA JR ., DR PAULINO Faustin Attending Unavaila ble KABA JR ., DR PAULINO Faustin Admitting Unavaila ble BARBER, DR REDDY Primary Care Unavailable KABA JR ., DR PAULINO Faustin Consulting Unavaila ble DANN, INES Consulting Unavailable HENRY, MADI Consulting Unavailable JUSTICE, DR REDDY Primary Care Unavailable HENRY, MADI [...] Unavailable HOY ., DR ESCALERA Consulting Unavailable JUSTICE, DR REDDY Primary Care Unavailable SON ., DR JOSE Berumen Consulting Unavailable NOHEMY, MARYLOU Consulting Unavailable Briggs, Gisanjeev Consulting Unavailable LOJA, AFTAB Consulting Unavailable BARBER, DR REDDY Primary Care Unavailable HOY ., DR ESCALERA Admitting Unavailable HOY ., DR ESCALERA Attending Unavailable HOY ., DR ESCALERA Consulting Unavailable NADERER, DR ROXANA Mata Consulting Unavailable MARKER ., DR POLLOCK Consulting Unavailable ADIELNE ., FLAKITA Consulting Unavailable HENRYMADI CLEMENS Consulting Unavailable GINA BRITT Consulting Unavailable HEMMER, DR MAHAMED Perez Admitting Unavailable HEMMER, DR MAHAMED Perez Attending Unavailable JUSTICE, DR REDDY Primary Care Unavailable HEMMER, DR MAHAMED Perez Consulting Unavailable SON ., DR JOSE Berumen Admitting Unavailable SON ., DR JOSE Berumen Attending Unavailable BARBER, DR REDDY Primary Care Unavailable SON ., DR JOSE Berumen Consulting Unavailable ELTAHAWY, DR ASCENCIO Consulting Unavailable JUSTICE, DR REDDY Primary Care Unavailable ELTAHAWY, DR ASCENCIO Attending Unavailable ELTAHAWNadir, DR ASCENCIO Admitting Unavailable SON ., DR JOSE Berumen Admitting Unavailable SON ., DR JOSE Berumen Attending Unavailable BARBER, DR REDDY Primary Care Unavailable SON ., DR JOSE Berumen Consulting Unavailable ELTAHAWY, SILVA Attending Unavailable ELTAHAWY, SILVA Attending Unavailable HENRY, MADI Attending Unavailable CALVIN, PHILL Attending Unavailable MARTHA Barber Primary Care Provider DO Venkatesh Trammell Emergency Provider FringDO Gina orellana Admit Provider DO Gina Poole Attending Provider BENITO Antunez Other Provider Unavailable DO Melody Canela Other Provider MD Colin Carrillo Other Provider MD Jose Arriaga Other Provider MD Jeffry Hardy Other Provider MD Farhat Saleem Other Provider JERMAINE Montanez Other Provider MD Kellie Okeefe Other Provider MD Jack Cooley Other Provider MD Daniella Estrada Other Provider Ayanna [facility] Sonia Faustin Other Provider [phone] MD Tatiaan Shafer Other Provider [phone] Hilary Antunez Consulting Unavailable Gina Poole Admitting Unavailable Gina Poole Attending Unavailable Barry Barbre Primary Care Unavailable Melody Canela Consulting Unavailable Colin Carrillo Consulting Unavailable Jose Arriaga Consulting Unavail able Jeffry Hardy Consulting Unavailable Farhat Saleem Consulting Unavailab Annika Mckeon Consulting Unavailable Kellie Okeefe Consulting Unavailable Jack Cooley Consulting Unavailab Daniella French Consulting Unavailable Sonia Urena Consulting Unavailable Tatiana Shafer Consulting Unavailable Barry Barber Unavailable Unavailable Unavailable Annika Kaba Referring Unavailable Annika Kaba Attending Unavailable Justice THOMAS, Dr. Barry Cage Primary Care Raina Barry Mathias MD Primary Care Provider Barry Barber MD Unavailable [phone] Barry Barber MD Primary Care Provider Barry Barber MD Unavailable [phone] SOM MADRIGAL Referring Unavailable BARRY BARBER Primary Care Unavailable SOM MADRIGAL Attending Unavailable LALI RIVERA Referring Unavailable BARRY BARBER Primary Care Unavailable Unavailable Primary Care Provider Unavailabl e Barry Barber MD Unavailable [phone] Barry Barber MD Primary Care Provider Wednesday PIPING DRAFTER, Randee Unavailable Beth BALLET SOLOIST, Becca Unavailable ANNIKA MONTANEZ Referring Unavailable BARRY BARBER Primary Care Unavailable Colt Live DO Unavailable [phone] Viky Madera Unavailable Unavailable Giovanni BACON MD, Meng Unavailable Jacqui Michael Attending Unavailable Jacqui Michael MJesse Referring Unavailable Jacqui Michael MJesse Admitting Unavailable Jacqui Michael Attending Unavailable Jacqui Michael Admitting Unavailable Lani Wasserman Attending Unavailable Jacqui Michael Attending Unavailable Jacqui Michael MJesse Referring Unavailable Jacqui Michael Attending Unavailable Shaye Pittman Attending Unavailable Jacqui Michael Attending Unavailable INES WELCH Attending Unavailable KAYDEN LEE Referring Unavailable PROVIDER, UNKNOWN Admitting Unavailable PROVIDER, UNKNOWN Attending Unavailable KAYDEN LEE Referring Unavailable PROVIDER, UNKNOWN Admitting Unavailable PROVIDER, UNKNOWN Attending Unavailable KAYDEN LEE Referring Unavailable PROVIDER, UNKNOWN Attending Unavailable PROVIDER, UNKNOWN Admitting Unavailable PROVIDER, UNKNOWN Attending Unavailable LALI RIVERA Referring Unavailable JOSE CARBAJAL Admitting Unavailable LALI RIVERA Referring Unavailable JOSE CARBAJAL Admitting Unavailable PROVIDER, UNKNOWN Attending Unavailable LALI RIVERA Referring Unavailable REQUEST, IP PHYSICAL THERAPY SERVICE Consulting Unavailable JOSE CARBAJAL Attending Unavailable JOSE CARBAJAL Admitting Unavailable REQUEST, IP OCCUPATIONAL THERAPY SERVICE Consult ing Unavailable CONSULT, IP ORTHOPAEDICS GENERAL Consulting Unavailable CONSULT, IP SURGERY OMFS Consulting Unavail able CONSULT, IP GERIATRIC Consulting Unavailabl e REQUEST, IP FINANCIAL REPORTING SPECIALIST SERVICE Consulting Unavaila ble PROVIDER, UNKNOWN Admitting Unavailable COLT LIVE Attending Unavailable PROVIDER, UNKNOWN Admitting Unavailable MENG LEOS Attending Unavailable PROVIDER, UNKNOWN Admitting Unavailable COLT LIVE Attending Unavailable PROVIDER, UNKNOWN Admitting Unavailable PROVIDER, UNKNOWN Attending Unavailable PROVIDER, UNKNOWN Admitting Unavailable MAHAMED RM Attending Unavailable BARRY BARBER Attending Unavailable BARRY BARBER Attending Unavailable BARRY BARBER Attending Unavailable BARRY BARBER Referring Unavailable BARRY BARBER Attending Unavailable Allergies Allergy Classification Reported Allergen(s) Allergy Type Date of Onset Reaction(s) Facility (20 sources) GRAPEFRUIT EXTRACT; Translations: [GRAPEFRUIT] Drug Allergy 3 rash, Unknown (qualifier value), Unknown [facility] (2 sources) virgin wool Propensity to adverse reactions Unknown AdvanDx [facility] [employer] Other (2 sources) pinneapple Propensity to adverse reactions rash [employer] Other (14 sources) Bee/Wasp/Ant venom; Translations: [Bee Stings] Drug allergy Swelling of body region (finding) [facility] (20 sources) Naproxen; Translations: [naproxen] Drug Allergy 5 Other, Unknown [facility] (20 sources) Pineapple; Translations: [PINEAPPLE] Drug allergy 3 Unknown (qualifier value), Other, Unknown [facility] (1 source) Bee Sting Drug allergy Unknown [employer] Other (2 sources) Naproxen Drug Allergy 5 [facility] Repository (1 source) Naproxen; Translations: [NAPROXEN SODIUM] Drug Allergy 5 [facility] Repository (1 source) BEE VENOM PROTEIN (HONEY BEE); Translations: [BEE VENOM PROTEIN (HONEY BEE)] Propensity to adverse reactions to drug (disorder) 3 [facility] Repository (1 source) WOOL; Translations: [WOOL] Propensity to adverse reactions to drug (disorder) 3 [facility] Repository (14 sources) bee venom; Translations: [BEE VENOM] Propensity to adverse reactions to drug 4 [facility] Lanolin; Translations: [LANOLIN] Drug Allergy 3 [facility] (14 sources) Extra Strength Grapefruit; Translations: [EXTRA STRENGTH GRAPEFRUIT] Propensity to adverse reactions to drug 3 Rash [facility] (3 sources) Honey bee venom Allergy to substance 3 [facility] Healthcare Work Phone: (3 sources) Other Allergy to substance 3 [facility] (1 source) No Known Medication Allergies; Translations: [No Known Medication Allergies] Propensity to adverse reactions (disorder) [facility] Repository (1 source) GRAPEFRUIT EXTRACT; Translations: [GRAPEFRUIT EXTRACT] Drug Allergy 3 [facility] Medications Current Medications Medication Drug Class(es) [...] Start: 03-11-2021 take 4 tablets by mo uth once daily Rexulti 0.25 mg oral tablet [...] 12/31/21 Status: Ordered take 1 capsule by mo uth in the morning cholecalciferol (Vitamin D-3) 50 MCG (2000 UT) capsule Take 2,000 Units by mouth in the morning. 0 Active ciprofloxacin 500 mg oral tablet (6 sources) Quinolone Antimicrobial Start: 02-22-2023 End: 07-26-2023 take 1 tablet by mouth every twelve hours Cipro 500 mg Tab 500 mg = 1 tab(s), Oral, q12hr, X 7 day(s), # 14 tab(s), Refills(s) 0, Pharmacy: [facility], 153, cm, 02/12/23 11:42:00 EDT, Height/Length Dosing, 68.3, kg, 02/03/23 9:09:00 EDT, Weight Dosing Start Date: 02/22/23 Stop Date: 03/01/23 Status: Ordered Start: 02-03-2023 End: 02-06-2023 take 1 tablet by mouth twice daily Cipro 500 mg Tab 500 mg = 1 tab(s), Oral, BID, X 3 day(s), # 6 tab(s), Refills(s) 0, Pharmacy: [facility], 153, cm, 02/03/23 9:09:00 EDT, Height/Length Dosing, 68.3, kg, 02/03/23 9:09:00 EDT, Weight Dosing Start Date: 02/03/23 Stop Date: 02/06/23 Status: Ordered Continuous Blood Gluc Receiv er (FreeStyle L[place]am 2 [place]) device (6 sources) Start: 05-17-2023 End: 05-16-2024 Continuous Blood Gluc Receiv er (FreeStyle Lilliam 2 [place]) device Indications: Diabetic peripheral neuropathy associated with type 2 diabetes mellitus (CMS/HCC) 1 each in the morning and 1 each at noon and 1 each in the evening and 1 each before bedtime. 1 each 0 05/17/2023 05/16/2024 Active Start: 04-02-2023 End: 04-01-2024 Continuous Blood Gluc Receiv er (FreeStyle Lilliam 2 [place]) device Indications: Diabetic peripheral neuropathy associated with [...] 8am., # 1 tab(s), Refills(s) 0, Pharmacy: [facility] 1429, 154, cm, 06/10/22 10:26:00 EST, Height/Length [...] 1 month, then 2x/week for maintainence, [facility], 153, cm, 02/03/23 9:09:00 [...] 0 02/14/2022 Active take 1 capsule by [facility] every twenty-four hours FLUoxetine HCl [...] Status: Ordered take 2 puff(s) by mo [facility] four times daily fluticasone-salmeterol (ADVAIR DISKUS) 250-50 MCG/ACT inhaler Inhale 2 Puffs by mouth 4 times daily. 0 Active take 1 puff(s) by inhalation onc e Fluticasone-Salmeterol (Advair Diskus) 250-50 MCG/ACT aerosol powder Inhale 1 puff every 12 (twelve) hours. 0 Active take 1 puff(s) by mo [facility] twice daily fluticasone propion-salmeteroL (Advair Diskus) [...] # 1 tab(s), Refills(s) 0, Pharmacy: [facility], 154, cm, 01/25/20 14:09:00 [...] # 30 tab(s), Refills(s) 6, Pharmacy: [facility], 153, cm, 04/28/23 9:47:00 [...] 4 mg/0.1 mL nasal liquid Use 1 [place] in one nostril (alternate sides) as needed [...] intertrochanteric fracture of right femur, initial encounter (HCC) Take 1 Tablet by mouth every 6 [...] times daily. 0 Active polyethylene glycol 3350 72011 mg powder for oral solution (4 sources) Osmotic Laxative Start: Miralax 3350 17 gram packet 17 gram, Oral, Daily, # 255 gram, Refills(s) 3, Pharmacy: [facility], 154, cm, 08/08/20 12:03:00 EDT, Height/Length Dosing, 88.1, kg, 08/08/20 12:03:00 EDT, Weight Dosing Start Date: 08/08/20 Status: Ordered polyethylene glycol 3350 777416 mg / potassium chloride 1480 mg / sodium bicarbonate 5720 mg / sodium chloride 13281 mg powder for oral solution (2 sources) Osmotic Laxative Start: NuLYTELY Crane oral powder for reconstitution See Instructions, 1 EA, Refill(s) 0, Prior to colonoscopy., [facility], 154, cm, 12/31/21 14:58:00 EDT, Height/Length Dosing, 79.4, kg, 12/31/21 14:58:00 EDT, Weight Dosing Start Date: 12/31/21 Status: Ordered polymyxin b 50815 unt/ml / trimethoprim 1 mg/ml ophthalmic solution (1 source) Dihydrofolate Reductase Inhibitor Antibacterial, Polymyxin-class Antibacterial Start: 022 take 1 drop(s) into the eye(s) four times daily Polymyxin B-Trimethoprim 98336-6.1 UNIT/ML 1 drop into affected eye Ophthalmic [...] # 90 cap(s), Refills(s) 0, Pharmacy: [facility], 154, cm, 12/31/21 14:58:00 EDT, Height/Length Dosing, 79.4, kg, 12/31/21 14:58:00 EDT, Weight Dosing Start Date: 12/31/21 Stop Date: 03/31/22 Status: Ordered sennosides, [facility] 8.6 mg oral tablet (13 sources) Start: [...] 05-18-2023 Chronic Other aftercare (2 sources) Other care home (current) drug therapy; Translations: [OTHER SENIOR LIVING (CURRENT) DRUG THERAPY] Onset: 8 Episodic Other aftercare (1 source) detention (current) use of anticoagulants; Translations: [SENIOR LIVING CURRNT USE ANTICOAGULANTS] Onset: 3 Episodic Other aftercare (1 source) ocean transportation intermediary (current) use of inhaled steroids; Translations: [SENIOR LIVING USE OF INHALED STEROIDS] Onset: 3 Episodic Other aftercare (2 sources) ocean transportation intermediary (current) use of insulin; Translations: [SENIOR LIVING CURRENT USE OF INSULIN] Onset: 3 Episodic Other and ill-defined heart disease (13 sources) Heart disease 09-10-2020 Chronic Other circulatory disease (1 source) Low [...] 3 UNSP] Onset: 3 Unclassified (1 source) SENIOR LIVING INJECT NONINSULN ANTIDIAB; Translations: [CORNER TRIMMER OPERATOR INJECT NONINSULN ANTIDIAB] Onset: 3 Unclassified [...] pain; Translations: [Lower abdominal pain, unspecified] Onset: 022 Episodic Acquired foot deformities (14 sources) Foot drop, right foot; Translations: [Right foot drop] Onset: 023 05-18-2023 Episodic Acute posthemorrhagic anemia (13 sources) Acute posthemorrhagic anemia; Translations: [Acute posthemorrhagic anemia] Onset: 024 05-18-2023 Episodic Bacterial infection; unspecified site (1 [...] of jaw, unspecified side, initial encounter] Onset: 05-18-2023 Episodic Malaise and fatigue (3 sources) Other fatigue; Translations: [Weakness] Onset: Episodic Mood disorders (4 sources) Mood disorders; Translations: [DEPRESSION UNSPECIFIED] Onset: 04-23-2023 Other aftercare (1 source) detention (current) use of aspirin; Translations: [SENIOR LIVING CURRENT USE OF ASPIRIN] Onset: Episodic Other [...] unspecified, initial encounter for closed fracture] Onset: 024 05-18-2023 Episodic Unclassified (2 sources) Unknown / UNK(Unknown) Onset: 018 Unclassified (11 sources) Esophagogastroduodenoscopy gastric outlet reduction Onset: 022 02-16-2022 Unclassified (1 source) Exposure to 2019 novel coronavirus; Translations: [Contact with and (suspected) exposure to COVID19] Unclassified (4 sources) Onset: Resolve d: 03-30-2023 Urinary tract infections (20 sources) Acute cystitis; Translations: [Postinfective urethral stricture of female] Onset: 06-10-2022 Episodic Results Test Name Value Interpretation Reference Range [...] this condition includes: ? Antibiotic medicine. ? Uebt-pxh-ofxosfj medicines to treat discomfort. ? Drinking enough [...] these instructions at home: Medicines ? Take fjvh-fcs-bwvjfuc and prescription medicines only as told by [...] Document Revie (more content not included)... Normal [facility] Urology Office/Clinic Noteon 09-09-2023 Urology Office/Clinic Note [...] with voice recognition artificial intelligence software, specifically [employer], [email or web address] and or [employer]. Substitutions may have occurred due to the [...] 2 weeks [1] Patient continues to take njoe-ayd-ooyqvoq preventative supplements-cranberry, probiotics. She is using vaginal [...] 1.83, e (more content not included)... Normal [facility] Comment on above: Result Comment: Elec tronically Signed By: NICOLA Pittman APRN, [place] X\.shilpa\Date and Time Signed: 09/09/23 10:34 EDT Patient Instructionson 09-07 Healthcare Consulting Manager Authentication Interface Message Text You are doing excellent. Return to see me at 1 year from surgery Normal [facility] Progress Noteson 09-08-2023 Healthcare Consulting Manager Authentication Interface Message Text Patient seen [...] intertrochanteric fracture of right femur, initial encounter ([facility]) ORDERING PROVIDER: KAYDEN LEE TECHNOLOGISTS NOTE: COMPARISON: XR FEMUR RIGHT MINIMUM 2 [...] intertrochanteric fracture of right femur, initial encounter ([facility]) ORDERING PROVIDER: KAYDEN LEE TECHNOLOGISTS NOTE: COMPARISON: XR FEMUR RIGHT MINIMUM 2 [...] intertrochanteric fracture of right femur, initial encounter ([facility]) ORDERING PROVIDER: KAYDEN LEE TECHNEARLE NOTE: COMPARISON: XR FEMUR RIGHT MINIMUM 2 VIEWS 07/07/2023, 12:52 PM IMPRESSION: Comparison with the previous studies shows no change in position or alignment of the previously described right femur fracture. There is slight maturation of callus formation consistent with progression in healing. Hardware is intact without signs of loosening. Right femur MACRO: None [facility] Radiology Study observation (narrative) [employer] XR Femur - right 2 ViewsOrde red By: Fabian Ayala on 09-08-2023 [employer] [employer] Work Phone: XR HIP RIGHT W/ PELVIS MIN 2 -3 VIEWSon 09-08-2023 XR HIP RIGHT W/ PELVIS MIN 2-3 VIEWS EXAMINATION: XR HIP RIGHT W/ PELVIS MIN 2-3 VIEWSPRO/RT 09/08/2023 12:32 PM CLINICAL HISTORY: fu or pain ASSOCIATED DIAGNOSIS: Closed displaced intertrochanteric fracture of right femur, initial encounter ([facility]) ORDERING PROVIDER: KAYDEN LEE TECHNEARLE NOTE: [...] fracture. Right hip MACRO: None Normal [facility] XR Pelvis and Hip - right Vi ewson 09-08-2023 EXAMINATION: XR HIP RIGHT W/ PELVIS MIN 2-3 VIEWSPRO/RT 09/08/2023 12:32 PM CLINICAL HISTORY: fu or pain ASSOCIATED DIAGNOSIS: Closed displaced intertrochanteric fracture of right femur, initial encounter ([facility]) ORDERING PROVIDER: KAYDEN LEE TECHNEARLE NOTE: [...] intertrochanteric fracture of right femur, initial encounter ([facility]) ORDERING PROVIDER: KAYDEN LEE TECHNEARLE NOTE: [...] previously described fracture. Right hip MACRO: None [facility] Radiology Study observation (narrative) [facility] Ambulatory Visit Summaryon 0 09-07-2023 Ambulatory Visit Summary KATE HAGEN :1950 Visit Date:09/07/2023 Ambulatory Visit Instructions Your Diagnosis Recurrent UTI Pneumaturia Adrenal mass Urinary retention Renal cyst Urgency of urination Your Care Team Attending Physician - NICOLA Pittman APRN, Shaye Pires Primary Care Physician - JUSTICE XIE, BARRY Pearson This Is Your Medications List Contact [...] Follow-Up Appointments Wednesday 10:45 AM EST With: Alec XIE, Jacqui Nieves Where: [facility] Progress Noteson 08-23-2023 Healthcare Consulting Manager Authentication Interface Message Text Teaching Physician [...] pain. No operative intervention required given appropriate mormonism of function. Follow up with dentistry for denture adjustment. Meng Leos DMD, MD Normal [facility] Progress Noteson 08-19-2023 Healthcare Consulting Manager Authentication Interface Message Text ORAL SURGERY [...] and instruments to correct denture in our [facility], no denture adjustments were made today. Patient is properly healing. Assessment / Diagnosis: Edentulous [[id number]] Normal post operative course Normal postoperative course. [...] symptoms appear. Emma Zamudio DDS [facility] 08-18-2023 Healthcare Consulting Manager Authentication Interface Message Text Normal [facility] BASIC METABOLIC PANLon 08-10 Anion gap [Moles/Vol] 15 mmol/L Normal 5-15 [facility] Comment on above: Performed By: #### B MP #### [facility] ([id number]) [address], [address] [place] [address] Calcium [Mass/Vol] 7.4 mg/dL Low 8.5-10.5 [facility] Comment on above: Performed By: #### B MP #### [facility] ([id number]) [address], [address] [place] [address] Chloride [Moles/Vol] 100 mmol/L Normal 98-109 [facility] Comment on above: Performed By: #### B MP #### [facility] ([id number]) [address], [address] [place] [address] CO2 [Moles/Vol] 29 mmol/L Normal 22-32 [facility] Comment on above: Performed By: #### B MP #### [facility] ([id number]) [address] [place] [address] Creatinine [Mass/Vol] 3.89 mg/dL High 0.40-1.00 [facility] Comment on above: Result Comment: METH OD TRACEABLE TO IDMS STANDARD Performed By: #### B MP #### [facility] ([id number]) [address], [address] [place] [address] GFR/1.73 sq M.predicted among non-blacks MDRD (S/P/Bld) [Vol rate/Area] 12 mL/min/{1.73_m2} Low >59 [facility] Comment on above: Result Comment: Reported eGFR is based on the CKD-EPI 2020 equation that does not use a race coefficient. Performed By: #### B MP #### [facility] ([id number]) [address], [address] [place] [address] Glucose [Mass/Vol] 76 mg/dL Normal 65-99 [facility] Comment on above: Performed By: #### B MP #### [facility] ([id number]) [address] [place] [address] Potassium [Moles/Vol] 3.8 mmol/L Normal 3.5-5.0 [facility] Comment on above: Performed By: #### B MP #### [facility] ([id number]) [address] [place] [address] Sodium [Moles/Vol] 144 mmol/L Normal 134-146 [facility] Comment on above: Performed By: #### B MP #### [facility] ([id number]) [address], [address] [place] [address] Urea nitrogen [Mass/Vol] 95 mg/dL High 5-27 [facility] Comment on above: Performed By: #### B MP #### [facility] ([id number]) [address], [address] [place] [address] XR FEMUR RIGHT MINIMUM 2 VIE WSon 07-08-2023 XR FEMUR RIGHT MINIMUM 2 VIEWS EXAMINATION: XR FEMUR RIGHT MINIMUM 2 VIEWSPRO/RT 07/07/2023 12:51 PM CLINICAL HISTORY: fu ASSOCIATED DIAGNOSIS: Closed displaced intertrochanteric fracture of right femur, initial encounter ([facility]) ORDERING PROVIDER: KAYDEN SMALLS NOTE: COMPARISON: XR FEMUR RIGHT MINIMUM 2 VIEWS 06/09/2023, 8:34 AM IMPRESSION: Comparison with the previous studies shows no change in position or alignment of the previously described right femur fracture. There is slight maturation of callus formation consistent with progression in healing. Hardware is intact without signs of loosening. Right femur MACRO: None Normal [facility] XR PELVIS SINGLE VIEWon XR PELVIS SINGLE VIEW EXAMINATION: XR PE LVIS SINGLE VIEW 07/07/2023 12:51 PM CLINICAL HISTORY: pain or f/u ASSOCIATED DIAGNOSIS: Closed displaced intertrochanteric fracture of right femur, initial encounter ([facility]) ORDERING PROVIDER: KAYDEN SMALLS NOTE: COMPARISON: [...] IMPRESSION: Stable examination. MACRO: None Normal [facility] Patient Instructionson 07-06 Healthcare Consulting Manager Authentication Interface Message Text Your fracture remains well aligned. I expect that your knee pain is from a combination of pain from your hip joint as well as some muscular imbalance from your injury. Continue to work with physical therapy on this. Return to see me in 2 months. Normal [facility] Progress Noteson 07-07-2023 Healthcare Consulting Manager Authentication Interface Message Text Patient returns [...] see me in 2 months. Normal [facility] ALL BASIC METABOLIC PANELon 06-16-2023 Anion gap [Moles/Vol] 11.3 mmol/L [facility] Calcium [Mass/Vol] 9.0 mg/dL 8.5 - 10. 1 mg/dL [facility] Chloride [Moles/Vol] 101 mmol/L 98 - 10 7 mmol/L [facility] CO2 [Moles/Vol] 33.9 mmol/L High 21.0 - 32.0 mmol/L [facility] Creatinine [Mass/Vol] 2.20 mg/dL High 0.55 - 1.02 mg/dL [facility] GFR/1.73 sq M.predicted CKD-EPI (S/P/Bld) [Vol rate/Area] 26 Low 60 - PINF [facility] Glucose [Mass/Vol] 104 mg/dL 74 - 106 mg/dL [facility] Interpretation and review of laboratory results Abnormal [facility] Potassium [Moles/Vol] 4.2 mmol/L 3.5 - 5.1 mmol/L [facility] Sodium [Moles/Vol] 142 mmol/L 136 - 145 mmol/L [facility] TBH EGFR-NON AF [place] 22 Low 60 - PINF [facility] Urea nitrogen [Mass/Vol] 55.0 mg/dL High 7.0 - 18.0 mg/dL [facility] Urea nitrogen/Creatinine [Mass ratio] 25.0 mg/mg [facility] Telephone Encounteron 2023 Healthcare Consulting Manager Authentication Interface Message Text What is the need: Medicare PHU SNF Review Situation: Patient approaching the 30 day readmission period Background: Attending Meng Whitaker MD Date of Admission 05/13/2023 Date of Discharge 05/18/2023 [facility] DIVISION OF TRAUMA SURGERY FINAL DIAGNOSES: Hospital Problems as of 05/18/2023 * (Principal) H/O traumatic fracture Assessment: Reviewed careport patient remains in SNF 05/18/2023 7:[address] [facility] ([facility]) Recommendation: continue PHU SNF Review Program closed at this time Normal [facility] ALL BASIC METABOLIC PANELon 06-14-2023 Anion gap [Moles/Vol] 9.3 mmol/L [facility] Calcium [Mass/Vol] 9.1 mg/dL 8.5 - 10. 1 mg/dL [facility] Healthcare Chloride [Moles/Vol] 98 mmol/L 98 - 10 7 mmol/L [facility] CO2 [Moles/Vol] 35.7 mmol/L High 21.0 - 32.0 mmol/L [facility] Healthcare Creatinine [Mass/Vol] 2.27 mg/dL High 0.55 - 1.02 mg/dL [facility] GFR/1.73 sq M.predicted CKD-EPI (S/P/Bld) [Vol rate/Area] 26 Low 60 - PINF [facility] Healthcare Glucose [Mass/Vol] 108 mg/dL High 74 - 106 mg/dL [facility] Interpretation and review of laboratory results Abnormal [facility] Potassium [Moles/Vol] 4.0 mmol/L 3.5 - 5.1 mmol/L [facility] Healthcare Sodium [Moles/Vol] 139 mmol/L 136 - 145 mmol/L [facility] TBH EGFR-NON AF [place] 21 Low 60 - PINF [facility] Healthcare Urea nitrogen [Mass/Vol] 78.0 mg/dL Critically high 7.0 - 18.0 mg/dL [facility] Comment on above: RESULTS CALLED TO FANNIE STALEY LPN @BY Iwona Goff at 1039 Urea nitrogen/Creatinine [Mass ratio] 34.4 mg/mg [facility] Research Noteon 06-14-2023 Healthcare Consulting Manager Authentication Interface Message Text ..Documentation of Human Investigation Informed Consent Process Informed Consent (Adult) IRB Screening/Consent Visit for study: Post Market Clinical Evaluation of Gamma 4: Prospective, Multicenter, Follow Up Study (MILEY) PI Dr. Colt Live SHORT TITLE: [facility] PI CONTACT NUMBER [phone] CLOCK REPAIR TECHNICIAN Giovanna Serrano PHONE [phone] The above research study consent was explained [...] Time of informed consent 9:45am Normal [facility] ALL HGB HCTon 06-11-2023 Hematocrit (Bld) [Volume fraction] 27.3 % Low 36.0 - 48.0 % [facility] Hemoglobin (Bld) [Mass/Vol] 9.0 g/dL Low 12.0 - 16.0 g/dL [facility] Interpretation and review of laboratory results Abnormal [facility] Patient Instructionson 06-09 Healthcare Consulting Manager Authentication Interface Message Text Weight bearing: [...] Dr. James Noriega who sees patients at [facility] Progress Noteson 06-09-2023 Healthcare Consulting Manager Authentication Interface Message Text Doing well overall. Has had difficulties ambulating for months prior to fall. Has not been worked up much. Bilateral foot drop which was new in the past few months but present prior to surgery. Recommended she see neurology or spine surgeon near her [place]. They are closer to [facility] and 1.5 hrs from here. They would prefer to see someone at [facility]. On eliquis. Incisions well healed. Ambulating [...] Dr. James Noriega who sees patients at [facility] XR FEMUR RIGHT MINIMUM 2 VIE WSon 06-09-2023 XR FEMUR RIGHT MINIMUM 2 VIEWS EXAMINATION: XR FEMUR RIGHT MINIMUM 2 VIEWSPRO/RT 06/09/2023 08:28 AM CLINICAL HISTORY: fu ASSOCIATED DIAGNOSIS: Closed displaced intertrochanteric fracture of right femur, initial encounter ([facility]) ORDERING PROVIDER: KAYDEN SMALLS NOTE: COMPARISON: None IMPRESSION: Threaded nail intramedullary ramon with distal screw fixation provides ORIF for previously noted comminuted intratrochanteric fracture. Overall alignment is nearly anatomic. Hardware is intact. Underlying osteopenia. Right femur MACRO: None Normal [facility] XR Femur - right 2 Viewson 0 06-09-2023 EXAMINATION: XR FEMU R RIGHT MINIMUM 2 VIEWSPRO/RT 06/09/2023 08:28 AM CLINICAL HISTORY: fu ASSOCIATED DIAGNOSIS: Closed displaced intertrochanteric fracture of right femur, initial encounter ([facility]) ORDERING PROVIDER: KAYDEN SMALLS NOTE: COMPARISON: [...] intertrochanteric fracture of right femur, initial encounter ([facility]) ORDERING PROVIDER: KAYDEN LEE TECHNEARLE NOTE: COMPARISON: None IMPRESSION: Threaded nail intramedullary ramon with distal screw fixation provides ORIF for previously noted comminuted intratrochanteric fracture. Overall alignment is nearly anatomic. Hardware is intact. Underlying osteopenia. Right femur MACRO: None [facility] Radiology Study observation [facility]narrative) [facility] X[facility] HIP RIGHT W/ PELVIS MIN 2 -3 VIEWSon 06-09-2023 XR HIP RIGHT W/ PELVIS MIN 2-3 VIEWS EXAMINATION: XR HIP RIGHT W/ PELVIS MIN 2-3 VIEWSPRO/RT 06/09/2023 08:18 AM CLINICAL HISTORY: fu or pain ASSOCIATED DIAGNOSIS: Closed displaced intertrochanteric fracture of right femur, initial encounter ([facility]) ORDERING PROVIDER: KAYDEN LEE TECHNEARLE NOTE: [...] history. Right hip MACRO: None Normal [facility] XR Pelvis and Hip - right Vi ewson 06-09-2023 EXAMINATION: XR HIP RIGHT W/ PELVIS MIN 2-3 VIEWSPRO/RT 06/09/2023 08:18 AM CLINICAL HISTORY: fu or pain ASSOCIATED DIAGNOSIS: Closed displaced intertrochanteric fracture of right femur, initial encounter ([facility]) ORDERING PROVIDER: KAYDEN LEE TECHNOLOGISTS NOTE: COMPARISON: XR HIP RIGHT W/ PELVIS [...] intertrochanteric fracture of right femur, initial encounter ([facility]) ORDERING PROVIDER: KAYDEN LEE TECHNEARLE NOTE: COMPARISON: XR HIP RIGHT W/ PELVIS MIN 2-3 VIEWS 05/14/2023, 3:51 AM FINDINGS: IMPRESSION: Status post ORIF right intratrochanteric fracture. Email intramedullary ramon device. Alignment is essentially anatomic. Underlying osteopenia. 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 Surgical clips-presumably from cholecystectomy-correlate with history. Right hip MACRO: None [facility] Radiology Study observation (narrative) [facility] [place]R Pelvis and Hip - right Vi ewsOrdered By: Gina Ruiz on 06-09-2023 [facility] Work Phone: Telephone Encounteron 2023 Healthcare Consulting Manager Authentication Interface Message Text Pt unable to make 2/7 appt needs rescheduled please call facility at [phone] to reschedule can be any day after 9 am. Normal [facility] Telephone Encounteron 2023 Healthcare Consulting Manager Authentication Interface Message Text What is the need: Medicare PHU SNF Review Situation: Patient within the 30 day readmission period Background: Attending Meng Whitaker MD Date of Admission 05/13/2023 Date of Discharge 05/18/2023 [facility] DIVISION OF TRAUMA SURGERY FINAL DIAGNOSES: Hospital Problems as of 05/18/2023 * (Principal) H/O traumatic fracture Assessment: Reviewed careport patient remains in SNF 05/18/2023 7:[address] [facility] ([facility]) Recommendation: continue PHU SNF Review Process Normal [facility] Healthcare Consulting Manager Authentication Interface Message Text Situation: F/U w [facility] Background: Emma calling to schedule Pt for F/U w [facility]. Pt seen in ED by Giovanni on 1/11/24. ED discharge instructed F/U w provider Basia would like office to contact at earliest convenience to get Pt scheduled. Assessment: Please assist Recommendation: Basia can be reached at [phone] Normal [facility] Telephone Encounteron 2023 Healthcare Consulting Manager Authentication Interface Message Text What is the need: Medicare PHU SNF Review Situation: Patient within the 30 day readmission period Background: Attending Meng Whitaker MD Date of Admission 05/13/2023 Date of Discharge 05/18/2023 [facility] DIVISION OF TRAUMA SURGERY FINAL DIAGNOSES: Hospital Problems as of 05/18/2023 * (Principal) H/O traumatic fracture Assessment: [facility] 05/18/2023 7:35 PM EST [facility] ([facility]) Recommendation: continue PHU SNF Review Process Elmo Allen RN Normal [facility] Telephone Encounteron 2023 Healthcare Consulting Manager Authentication Interface Message Text Patient discharged to a SNF Name of SNF: [facility] Phone number: [phone] [facility] review Normal [facility] BASIC METABOLIC PANELon 05-03 Anion gap [Moles/Vol] 18 mmol/L Normal 10-20 [facility] Comment on above: Performed By: #### 8 2948 #### NURSING GLUCOSE PRO[facility] [address] [place], [address] Calcium [Mass/Vol] 9.1 mg/dL Normal 8.6-10.3 [facility] Comment on above: Result Comment: Note updated reference ranges. Performed By: #### 8 2948 #### NUR[facility] GLUCOSE PRO[facility] [address] [place], [address] Chloride [Moles/Vol] 100 mmol/L Normal 98-107 [facility] Comment on above: Result Comment: Note updated reference ranges. Performed By: #### 8 2948 #### NURSING GLUCOSE PROGRAM [address] [place], [address] CO2 [Moles/Vol] 25 mmol/L Normal 21-31 [facility] Comment on above: Result Comment: Note updated reference ranges. Performed By: #### 8 2943 #### NURSING GLUCOSE PROGRAM [address] [place], [address] Creatinine [Mass/Vol] 2.06 mg/dL High 0.60-1.20 [facility] Comment on above: Result Comment: Note updated reference ranges. Performed By: #### 8 2948 #### NURSING GLUCOSE PROGRAM [address] [place], [address] ESTIMATED GFR (CKD-EPI) 25 mL/min/1.73sqm Low >=60 [facility] Comment on above: Result Comment: 2020 [...] Inclusion of Race in Diagnosing Kidney Disease. [place] Journal of Kidney Diseases 2021;79(2):268-88.e1. 2. N Engl J Med 1 Vol. 385 Issue 19 Pages 7990-0868 Performed By: #### 8 2948 #### NURSING GLUCOSE PROGRAM [address] [place], [address] Glucose [Mass/Vol] 109 mg/dL Normal 74-109 [facility] Comment on above: Performed By: #### 8 2948 #### NURSING GLUCOSE PROGRAM [address] [place], [address] Potassium [Moles/Vol] 4.0 mmol/L Normal 3.5-5.0 [facility] Comment on above: Result Comment: Note updated reference ranges. Note updated reference ranges. Performed By: #### 8 2948 #### NURSING GLUCOSE PROGRAM [address] [place], [address] Sodium [Moles/Vol] 139 mmol/L Normal 136-145 [facility] Comment on above: Result Comment: Note updated reference ranges. Performed By: #### 8 2948 #### NURSING GLUCOSE PROGRAM [address] [place], [address] Urea nitrogen [Mass/Vol] 68 mg/dL High 7-25 [facility] Comment on above: Result Comment: Note updated reference ranges. Performed By: #### 8 2948 #### NURSING GLUCOSE PROGRAM [address] [place], [address] COMPLETE BLOOD COUNTon 05-18 Erythrocyte distribution width (RBC) [Ratio] 14.0 % Normal 11.5-14.5 [facility] Comment on above: Performed By: #### 8 2948 #### NURSING GLUCOSE PROGRAM [address] [place] [address], [address] Hematocrit (Bld) [Volume fraction] 24.3 % Low 36.0-46.0 [facility] Comment on above: Performed By: #### 8 2948 #### NURSING GLUCOSE PROGRAM [address] [place] [address], [address] Hemoglobin (Bld) [Mass/Vol] 8.3 g/dL Low 12.0-15.0 [facility] Comment on above: Performed By: #### 8 2948 #### NURSING GLUCOSE PROGRAM [address] [place] [address], [address] MCH (RBC) [Entitic mass] 31.5 pg Normal 26.0-34.0 [facility] Comment on above: Performed By: #### 8 2948 #### NURSING GLUCOSE PROGRAM [address] [place] [address], [address] MCHC (RBC) [Mass/Vol] 34.3 g/dL Normal 32.0-35.9 [facility] Comment on above: Performed By: #### 8 2948 #### NURSING GLUCOSE PROGRAM [address] [place] [address], [address] MCV (RBC) [Entitic vol] 92 fL Normal 80-100 [facility] Comment on above: Performed By: #### 8 6078 #### NURSING GLUCOSE PROGRAM [address] [place] [address], [address] Platelet mean volume (Bld) [Entitic vol] 7.5 fL Normal 7.5-11.2 [facility] Comment on above: Performed By: #### 8 2948 #### NURSING GLUCOSE PROGRAM [address] [place] [address], [address] Platelets (Bld) [#/Vol] 252 10*3/uL Normal 150-400 [facility] Comment on above: Performed By: #### 8 2948 #### NURSING GLUCOSE PROGRAM [address] [place] [address], [address] RBC (Bld) [#/Vol] 2.64 10*6/uL Low 4.00-5.20 [facility] Comment on above: Performed By: #### 8 2948 #### NURSING GLUCOSE PROGRAM [address] [place], [address] WBC (Bld) [#/Vol] 10.0 10*3/uL Normal 4.5-11.5 [facility] Comment on above: Performed By: #### 8 2948 #### NURSING GLUCOSE PROGRAM [address] [place], [address] Care Plan Noteon 05-18-2023 Healthcare Consulting Manager Authentication Interface Message Text Problem: Routine [...] during hospital stay Outcome: Progressing Normal [facility] Healthcare Consulting Manager Authentication Interface Message Text Nursing staff [...] am for continued possible dehydration. Normal [facility] Consultson 05-18-2023 Healthcare Consulting Manager Authentication Interface Message Text Dietitian vs DietaryTech: Psych Therapist Diet Precipitator Supervisor Nutrition Screening Reason for visit: LOS 5 [...] Fluid Accumulation: non-pitting Diet Order: Regular; DM [place]; Dental Mechanical Soft Supplements: boost glucose max [...] at this time. Comments: intake fair. C-diff+. [facility] 05/17 - recommendations for Soft diet/thin liquids. Oral supplements are in place per orders. Will follow. Number of Points: 0 Nutritional Plan of Care: Less than or equal to 6 points: At this time, patient is at low nutrition risk. DTR to provide routine follow up. Will continue to follow, Kasey Brand Diet Precipitator Supervisor Pager [phone] Normal [facility] Discharge Planning Noteon Healthcare Consulting Manager Authentication Interface Message Text CASE MANAGEMENT/SOCIAL WORK SNF DC NOTE: Pt has been cleared for transfer to SNF on this date. Pt will be transferred to [facility] via Paulino Galeano ([id number]) at 4PM. Nursing report may be called to [phone] Support person notified: DaughterKirstin ([phone]) Patient/Family, team aware of above and agreeable. For discharge, please ensure the following is completed: MD to place DC order, reconcile meds, and print narcotics to go with patient to SNF Director Of Corporate Sales to print Discharge Summary, [place], Summary of Care, Narcotic Scripts, and Signature Page and place in a packet to be given to local tanker truck driver If transport/discharge needs to be adjusted/cancelled, team (MD/RN) to cancel transport, update support person, and update receiving facility. Lidia Morel, TRUCK HEADLIGHT ASSEMBLER, BALLET SOLOIST Normal [facility] GLUCOSE, FINGERSTICK-IN OFFI CEon 05-18-2023 Glucose [Mass/Vol] 143 mg/dL High 80-116 [facility] Comment on above: Performed By: #### 8 2948 #### NURSING GLUCOSE PROGRAM [address] [place] [address], [address] Glucose [Mass/Vol] 144 mg/dL High 80-116 [facility] Comment on above: Performed By: #### C R BGA, CR GLU, CR ICA, CR COOX, CR LYTES, LACT #### [facility] [address] [place] [address], Glucose [Mass/Vol] 140 mg/dL High 80-116 [facility] Comment on above: Performed By: #### 8 2948 #### NURSING GLUCOSE PROGRAM [address] [place] [address], [address] HEMOGLOBIN A1Con 05-18-2023 Glucose [Mass/Vol] 128 mg/dL Normal [facility] Comment on above: Performed By: #### C R BGA, CR GLU, CR ICA, CR COOX, CR LYTES, LACT #### [facility] [address] [place] [address], HbA1c (Bld) [Mass fraction] 6.1 % High 4.0-5.6 [facility] Comment on above: Performed By: #### C R BGA, CR GLU, CR ICA, CR COOX, CR LYTES, LACT #### [facility] [address] [place], [place], MAGNESIUMon 05-18-2023 Magnesium [Mass/Vol] 1.6 mg/dL Low 1.9-2.7 [facility] Comment on above: Result Comment: Note updated reference ranges. Performed By: #### 8 2948 #### NURSING GLUCOSE PROGRAM [address] [place], [address] Progress Noteson 05-18-2023 Healthcare Consulting Manager Authentication Interface Message Text ----- GENERAL [...] mandibular fracture with TMJ dislocation. Transferred to [facility] for operative intervention. Hospital Course: 05/13/2023: Transferred to [facility] for R hip fracture, L mandibular fracture [...] Hct MCV RDW Plt PT aPTT INR 05/18/23 0041 10.0 2.64 8.3 24.3 92 14.0 252 [...] p (more content not included)... Normal [facility] URINALYSIS WITH REFLEX CULTU RE PERFORMABLEon 05-18-2023 Glucose Ql (U) Negative Normal Negative [facility] Comment on above: Order Comment: A [...] Performed By: #### u rinalysiswcul ####S PATHOLOGY [id number] [place], [address]#### C URINE ####[facility] [address] [place], [place] Protein (U) [Mass/Vol] 30 mg/dL Abnormal Negative e [facility] Comment on above: Order Comment: A [...] around 50%) Performed By: #### u rinalysiswcul ####[facility] PATHOLOGY [id number] [place], [place], #### C URINE ####[facility] [address]tb[address] [place], [place] SQUAMOUS EPITHELIAL 3-5 Normal 0-10 [facility] Comment on above: Order Comment: A [...] Performed By: #### u rinalysiswcul ####S PATHOLOGY RODXPAILVQ7088 [place], [place], #### C URINE ####[facility] [address] [place], [place] U APPEAR Clear Normal Clear [facility] Comment on above: Order Comment: A [...] around 50%) Performed By: #### u rinalysiswcul ####[facility] PATHOLOGY [id number] [place], [place], #### C URINE ####[facility] [address]rlfyje67[address] [place], [place] U BACTERIA Few Normal [facility] Comment on above: Order Comment: A [...] around 50%) Performed By: #### u rinalysiswcul ####[facility] PATHOLOGY [id number] [place], [place], #### C URINE ####[facility] [address] [place], [place] [address] U BILI Negative Normal Negative [facility] Comment on above: Order Comment: A [...] around 50%) Performed By: #### u rinalysiswcul ####[facility] PATHOLOGY [id number] [place], [place], #### C URINE ####[facility] [address] [place], [place] [address] U BLOOD Trace Abnormal Negative [facility] Comment on above: Order Comment: A [...] around 50%) Performed By: #### u rinalysiswcul ####[facility] PATHOLOGY [id number] [place], [place], #### C URINE ####[facility] Lycoebavy38[address] [place], [place] U COLOR Colorless Normal Colorless [facility] Comment on above: Order Comment: A [...] around 50%) Performed By: #### u rinalysiswcul ####[facility] PATHOLOGY [id number] [place], [place], #### C URINE ####[facility] [address] [place], [place] [id number] U KETONE Negative Normal Negative [facility] Comment on above: Order Comment: A [...] around 50%) Performed By: #### u rinalysiswcul ####[facility] PATHOLOGY [id number] [place], [place], #### C URINE ####[facility] [address] [place], [place] [address] U LEUK Positive Abnormal Negative [facility] Comment on above: Order Comment: A [...] for pyuria. Performed By: #### u rinalysiswcul ####[facility] PATHOLOGY UTISQIHHBA2271 [place], [place], #### C URINE ####[facility] [address] [place], [place] [id number] U MUCOUS Present Normal [facility] Comment on above: Order Comment: A [...] around 50%) Performed By: #### u rinalysiswcul ####[facility] [id number] [place], [place], #### C URINE ####[facility] Nzrdwbfpb6794 [place], [place] U NITRITE Negative Normal Negative [facility] Comment on above: Order Comment: A [...] around 50%) Performed By: #### u rinalysiswcul ####[facility] PATH[facility]Y [id number] [place], [place], #### C URINE ####[facility] Lxywtkdfd8911 [place], [place] U PH 6.0 Normal 5.0-8.0 [facility] Comment on above: Order Comment: A [...] around 50%) Performed By: #### u rinalysiswcul ####[facility] PATH[facility] [id number] [place], [place], #### C URINE ####[facility] [address] [place], [place] [id number] U RBC 0-2 Normal 0-2 [facility] Comment on above: Order Comment: A [...] around 50%) Performed By: #### u rinalysiswcul ####[facility] PATH[facility] [id number] [place], [place], #### C URINE ####[facility] [address]xfq[address] [place], [place] [id number] U SG 1.011 Normal <=1.030 [facility] Comment on above: Order Comment: A [...] Performed By: #### u rinalysiswcul ####S PATHOLOGY [id number] [place], [place], #### C URINE ####[facility] Eelnleiyc1845 [place], [place] U UROBILI Negative Normal Negative [facility] Comment on above: Order Comment: A [...] Performed By: #### u rinalysiswcul ####S PATHOLOGY [id number] [place], [place], #### C URINE ####[facility] Tawlyvhaz3854 [place], [place] U WBC 11-30 Abnormal 0-2 [facility] Comment on above: Order Comment: A [...] around 50%) Performed By: #### u rinalysiswcul ####[facility] [id number] [place], [place], #### C URINE ####[facility] [address]sp[address]uf[address] [place], [place] [id number] URINE CULTUREon 05-18-2023 Bacteria identified Cx Nom (U) C URINE: Positive Culture Report ENTEROCOCCUS FAECIUM >100,000 CFU/ml Enterococcus faecium Normal [facility] Comment on above: Performed By: #### u rinalysiswcul ####[facility] PATH[facility] [id number] [place] [address], #### C URINE ####[facility] Fojom[address]kb[address] [place], [place] [id number] GISSEL ORGANISM: ENTEROCOCCUS FAECIUM ANTIBIOTIC GISSEL SENSITIVITY Ampicillin >= 32 R Ciprofloxacin >= 8 R Linezolid 2 S Vancomycin <= 0.5 S Tetracycline >= 16 R Nitrofurantoin 64 I Normal [facility] Comment on above: Performed By: #### u rinalysiswcul ####[facility] [id number] [place] [address], #### C URINE ####[facility] Qtpgiyuzv[address] [place], [place] [id number] BASIC METABOLIC PANELon 05-03 Anion gap [Moles/Vol] 19 mmol/L Normal 10-20 [facility] Comment on above: Performed By: #### C BC #### [facility] [address] [place] [address], Calcium [Mass/Vol] 8.5 mg/dL Low 8.6-10.3 [facility] Comment on above: Result Comment: Note updated reference ranges. Performed By: #### C BC #### [facility] [address] [place], [place], Chloride [Moles/Vol] 100 mmol/L Normal 98-107 [facility] Comment on above: Result Comment: Note updated reference ranges. Performed By: #### C BC #### [facility] [address] [place], [place], CO2 [Moles/Vol] 24 mmol/L Normal 21-31 [facility] Comment on above: Result Comment: Note updated reference ranges. Performed By: #### C BC #### S PATHOLOGY LABORATORY [address] [place], [place], Creatinine [Mass/Vol] 2.24 mg/dL High 0.60-1.20 [facility] Comment on above: Result Comment: Note updated reference ranges. Performed By: #### C BC #### [facility] [address] [place], [place], ESTIMATED GFR (CKD-EPI) 22 mL/min/1.73sqm Low >=60 [facility] Comment on above: Result Comment: 2020 [...] Inclusion of Race in Diagnosing Kidney Disease. [place] Journal of Kidney Diseases 2021;79(2):268-88.e1. 2. N Engl J Med 2020 Vol. 385 Issue 19 Pages 9940-3498 Performed By: #### C BC #### S PATHOLOGY LABORATORY [address] [place], [place], Glucose [Mass/Vol] 116 mg/dL High 74-109 [facility] Comment on above: Performed By: #### C BC #### S PATHOLOGY LABORATORY [address] [place], [place], Potassium [Moles/Vol] 3.8 mmol/L Normal 3.5-5.0 [facility] Comment on above: Result Comment: Note updated reference ranges. Note updated reference ranges. Performed By: #### C BC #### [facility] [address] [place] [address], Sodium [Moles/Vol] 139 mmol/L Normal 136-145 [facility] [place] Comment on above: Result Comment: Note updated reference ranges. Performed By: #### C BC #### [facility] [address] [place] [address], Urea nitrogen [Mass/Vol] 65 mg/dL High 7-25 [facility] [place] Comment on above: Result Comment: Note updated reference ranges. Performed By: #### C BC #### [facility] [address] [place] [address], COMPLETE BLOOD COUNTon 05-17 Erythrocyte distribution width (RBC) [Ratio] 14.0 % Normal 11.5-14.5 [facility] Comment on above: Performed By: #### C BC #### [facility] [address] [place] [address], Hematocrit (Bld) [Volume fraction] 23.3 % Low 36.0-46.0 [facility] [place] Comment on above: Performed By: #### C BC #### [facility] [address] [place] [address], Hemoglobin (Bld) [Mass/Vol] 7.9 g/dL Low 12.0-15.0 [facility] Comment on above: Performed By: #### C BC #### [facility] [address] [place] [address], MCH (RBC) [Entitic mass] 31.1 pg Normal 26.0-34.0 [facility] Comment on above: Performed By: #### C BC #### [facility] [address] [place] [address], MCHC (RBC) [Mass/Vol] 33.9 g/dL Normal 32.0-35.9 [facility] Comment on above: Performed By: #### C BC #### [facility] [address] [place] [address], MCV (RBC) [Entitic vol] 92 fL Normal 80-100 [facility] Comment on above: Performed By: #### C BC #### S PATHOLOGY LABORATORY [address] [place] [address], Platelet mean volume (Bld) [Entitic vol] 7.4 fL Low 7.5-11.2 [facility] Comment on above: Performed By: #### C BC #### S PATHOLOGY LABORATORY [address] [place] [address], Platelets (Bld) [#/Vol] 225 10*3/uL Normal 150-400 [facility] Comment on above: Performed By: #### C BC #### S PATHOLOGY LABORATORY [address] [place] [address], RBC (Bld) [#/Vol] 2.55 10*6/uL Low 4.00-5.20 [facility] Comment on above: Performed By: #### C BC #### [facility] [address] [place] [address], WBC (Bld) [#/Vol] 9.8 10*3/uL Normal 4.5-11.5 [facility] Comment on above: Performed By: #### C BC #### [facility] [address] [place] [address], Care Plan Noteon 05-17-2023 Healthcare Consulting Manager Authentication Interface Message Text Problem: Routine [...] during hospital stay Outcome: Progressing Normal [facility] Consultson 05-17-2023 Healthcare Consulting Manager Authentication Interface Message Text Modified Barium Swallow Study (MBSS) Time of service: 8349-4497 Duration: 10 minutes HPI Reason for Admit: [...] past medical history. S Patient referred for [facility] 2/2 further evaluation of oropharyngeal phases of swallow function. Pain: The patient denies pain at this time. Cognitive Status: The patient is alert. Respiration: The patient is on 3L of O2 via NC. Collar: N/A Phonation: WFL Dentition: O Videofluoroscopic Swallow Study was conducted in the lateral projections by Speech-Language Pathologist Berta Harrison M.A., CCC-FINANCIAL REPORTING SPECIALIST, in collaboration with Radiology Department, to evaluate oropharyngeal swallow function. Anatomic view under fluoroscopy Structural Variations: Cricopharyngeal bar. Post-Surgical Changes: N/A Lines, Tubes, and Collars: N/A Foreign Bodies: N/A P.O. barium contrast trials Varibar Thin liquid, Varibar [place], Varibar Pudding, solid coated in Varibar Pudding, [...] folds, and is ejected from the airway. [place] Thick Liquid/ IDDSI 2 Mildly-thick liquid Mode [...] l (more content not included)... Normal [facility] [place] MODIFIED BARIUM SWALLOWon 05-17-2023 MD MODIFIED BARIUM SWALLOW EXAMINATION: [place] MODIFIED BARIUM SWALLOW 05/17/2023 02:43 PM CLINICAL HISTORY: persisent coughing with PO intake following previous FINANCIAL REPORTING SPECIALIST evaluation ASSOCIATED DIAGNOSIS: ORDERING PROVIDER: JOHNSON CHAU TECHNOLOGISTS NOTE: COMPARISON: None FLUOROSCOPIST: WES MILLER FLUORO [...] bar is demonstrated MACRO: None Normal [facility] GLUCOSE, FINGERSTICK-IN OFFI CEon 05-17-2023 Glucose [Mass/Vol] 138 mg/dL High 80-116 [facility] Comment on above: Performed By: #### 8 [id number] #### NURSING GLUCOSE PROGRAM [address] [place] [address], [address] Glucose [Mass/Vol] 138 mg/dL High 80-116 [facility] Comment on above: Performed By: #### C BC #### [facility] [address] [place] [address], Glucose [Mass/Vol] 153 mg/dL High 80-116 [facility] Comment on above: Performed By: #### C R BGA, CR GLU, CR ICA, CR COOX, CR LYTES, LACT #### [facility] [address] [place] [address], Glucose [Mass/Vol] 132 mg/dL High 80-116 [facility] Comment on above: Performed By: #### 8 2948 #### NURSING GLUCOSE PROGRAM [address] [place], [address] [facility] 05-17-2023 Healthcare Consulting Manager Authentication Interface Message Text Social Work/Case Management: Reason for placement: PT/OT Therapies Patient level of care required : Skilled Applicant's potential for returning to community: Convalescent stay:<30 days Prognosis: Good Rehab Potential: Improve Mental/Behavioral status:Alert Affect: Calm Social Work Assessment Functional status prior to admission: Independent functional ambulation with cane Community agencies active with patient: N/A Support system: Family Capacity for independent living/joint terminal attack controller plan: Return home Other hospital admissions within the past 60 days: No Other pertinent problems: Normal [facility] MAGNESIUMon 05-17-2023 Magnesium [Mass/Vol] 2.0 mg/dL Normal 1.6-2.8 [facility] Comment on above: Performed By: #### C R BGA, CR GLU, CR ICA, CR COOX, CR LYTES, LACT #### [facility] [address] [place], [address] Progress Noteson 05-17-2023 Healthcare Consulting Manager Authentication Interface Message Text PT/OT are recommending SNF. Reviewed therapy recommendations with pt and daughter, Kirstin ([phone]) CM/SW provided pt's daughter the quality and resource use measure data from available post-acute (PAC) providers, that best align with the patient's treatment goals and preferences from the medicare.gov compare site for SNFs. [place] of Choice was provided to the patient/patient accounts receivable representative. Referrals were sent to: 1.) [facility] 2.) [facility] Awaiting review. KONRAD Kevin, BALLET SOLOIST ADDENDUM 4:00PM Obtained pt's SS# from daughter and updated [facility] as requested. Awaiting final determination. KONRAD Kevin, BALLET SOLOIST Normal [facility] Healthcare Consulting Manager Authentication Interface Message Text ----- GENERAL [...] mandibular fracture with TMJ dislocation. Transferred to [facility] for operative intervention. Hospital Course: 05/13/23: Transferred to [facility] for R hip fracture, L mandibular fracture [...] coughing with PO intake. Previously evaluated by FINANCIAL REPORTING SPECIALIST, who recommended MBS with change in respiratory [...] Intake/Output Summary (Last 24 hours) at 05/17/2023 0631 Last data filed at 05/17/2023 0535 Gross [...] Commen (more content not included)... Normal [facility] TYPE AND SCREENon 05-17-2023 ABO and Rh group Nom (Bld) Blood group O Rh(D) positive Normal [facility] Comment on above: Performed By: #### C BC #### S PATHOLOGY LABORATORY [address] [place] [address], ABSC INT Negative Normal [facility] Comment on above: Performed By: #### C BC #### S PATHOLOGY LABORATORY [address] [place], [place], ANTI FXA-UNFRACT. HEPARINon 05-16-2023 ANTI FXA-UNFRACT. HEPARIN 0.21 IU/mL Normal <=1.20 [facility] Comment on above: Order Comment: The r ecommended therapeutic range for treatment of thrombosis with Unfractionated Heparin is 0.3-0.7 IU/mL.The recommended range for VTE prophylaxis with Unfractionated Heparin is 0.1-0.3 IU/mL Performed By: #### C R BGA, CR GLU, CR ICA, CR COOX, CR LYTES, LACT #### S PATHOLOGY LABORATORY [address] [place] [address], BASIC METABOLIC PANELon 05-03 Anion gap [Moles/Vol] 15 mmol/L Normal 10-20 [facility] Comment on above: Performed By: #### C BC #### S PATHOLOGY LABORATORY [address] [place] [address], Calcium [Mass/Vol] 8.2 mg/dL Low 8.6-10.3 [facility] Comment on above: Result Comment: Note updated reference ranges. Performed By: #### C BC #### S PATHOLOGY LABORATORY [address] [place] [address], Chloride [Moles/Vol] 100 mmol/L Normal 98-107 [facility] Comment on above: Result Comment: Note updated reference ranges. Performed By: #### C BC #### [facility] [address] [place] [address], CO2 [Moles/Vol] 25 mmol/L Normal 21-31 [facility] Comment on above: Result Comment: Note updated reference ranges. Performed By: #### C BC #### S PATHOLOGY LABORATORY [address] [place] [address], Creatinine [Mass/Vol] 2.36 mg/dL High 0.60-1.20 [facility] Comment on above: Result Comment: Note updated reference ranges. Performed By: #### C BC #### [facility] [address] [place] [address], ESTIMATED GFR (CKD-EPI) 21 mL/min/1.73sqm Low >=60 [facility] Comment on above: Result Comment: 2020 [...] Inclusion of Race in Diagnosing Kidney Disease. [place] Journal of Kidney Diseases 2021;79(2):268-88.e1. 2. N Engl J Med 1 Vol. 385 Issue 19 Pages 5015-1781 Performed By: #### C BC #### S PATHOLOGY LABORATORY [address] [place] [address], Glucose [Mass/Vol] 146 mg/dL High 74-109 [facility] Comment on above: Performed By: #### C BC #### S PATHOLOGY LABORATORY [address] [place] [address], Potassium [Moles/Vol] 3.9 mmol/L Normal 3.5-5.0 [facility] Comment on above: Result Comment: Note updated reference ranges. Note updated reference ranges. Performed By: #### C BC #### S PATHOLOGY LABORATORY [address] [place] [address], Sodium [Moles/Vol] 136 mmol/L Normal 136-145 [facility] Comment on above: Result Comment: Note updated reference ranges. Performed By: #### C BC #### S PATHOLOGY LABORATORY [address] [place] [address], Urea nitrogen [Mass/Vol] 61 mg/dL High 7-25 [facility] Comment on above: Result Comment: Note updated reference ranges. Performed By: #### C BC #### S PATHOLOGY LABORATORY [address] [place] [address], COMPLETE BLOOD COUNTon 05-16 Erythrocyte distribution width (RBC) [Ratio] 14.1 % Normal 11.5-14.5 [facility] Comment on above: Performed By: #### C BC #### S PATHOLOGY LABORATORY [address] [place] [address], Hematocrit (Bld) [Volume fraction] 23.8 % Low 36.0-46.0 [facility] Comment on above: Performed By: #### C BC #### S PATHOLOGY LABORATORY [address] [place] [address], Hemoglobin (Bld) [Mass/Vol] 8.1 g/dL Low 12.0-15.0 [facility] Comment on above: Performed By: #### C BC #### S PATHOLOGY LABORATORY [address] [place], [place], MCH (RBC) [Entitic mass] 31.2 pg Normal 26.0-34.0 [facility] Comment on above: Performed By: #### C BC #### S PATHOLOGY LABORATORY [address] [place], [place], MCHC (RBC) [Mass/Vol] 34.0 g/dL Normal 32.0-35.9 [facility] Comment on above: Performed By: #### C BC #### S PATHOLOGY LABORATORY [address] [place], [place], MCV (RBC) [Entitic vol] 92 fL Normal 80-100 [facility] [place] Comment on above: Performed By: #### C BC #### S PATHOLOGY LABORATORY [address] [place], [place], Platelet mean volume (Bld) [Entitic vol] 7.2 fL Low 7.5-11.2 [facility] [place] Comment on above: Performed By: #### C BC #### [facility] [address] [place], [place], Platelets (Bld) [#/Vol] 218 10*3/uL Normal 150-400 [facility] [place] Comment on above: Performed By: #### C BC #### [facility] [address] [place], [place], RBC (Bld) [#/Vol] 2.59 10*6/uL Low 4.00-5.20 [facility] Comment on above: Performed By: #### C BC #### [facility] [address] [place], [place], WBC (Bld) [#/Vol] 9.8 10*3/uL Normal 4.5-11.5 [facility] Comment on above: Performed By: #### C BC #### S PATHOLOGY LABORATORY [address] [place], [place], Erythrocyte distribution width (RBC) [Ratio] 14.2 % Normal 11.5-14.5 [facility] [place] Comment on above: Performed By: #### C BC ####[facility] [id number] [place], [place], Hematocrit (Bld) [Volume fraction] 18.8 % Critically low 36.0-46.0 [facility] Comment on above: Performed By: #### C BC ####[facility] [id number] [place], Hemoglobin (Bld) [Mass/Vol] 6.3 g/dL Critically low 12.0-15.0 [facility] Comment on above: Performed By: #### C BC ####[facility] [id number] [place], [place], MCH (RBC) [Entitic mass] 30.8 pg Normal 26.0-34.0 [facility] Comment on above: Performed By: #### C BC ####[facility] [id number] [place], MCHC (RBC) [Mass/Vol] 33.5 g/dL Normal 32.0-35.9 [facility] Comment on above: Performed By: #### C BC ####[facility] [id number] [place], MCV (RBC) [Entitic vol] 92 fL Normal 80-100 [facility] Comment on above: Performed By: #### C BC ####[facility] [id number] [place], Platelet mean volume (Bld) [Entitic vol] 7.4 fL Low 7.5-11.2 [facility] Comment on above: Performed By: #### C BC ####[facility] [id number] [place], Platelets (Bld) [#/Vol] 217 10*3/uL Normal 150-400 [facility] Comment on above: Performed By: #### C BC ####[facility] [id number] [place], RBC (Bld) [#/Vol] 2.04 10*6/uL Low 4.00-5.20 [facility] [place] Comment on above: Performed By: #### C BC ####[facility] [id number] [place], WBC (Bld) [#/Vol] 9.3 10*3/uL Normal 4.5-11.5 [facility] Comment on above: Performed By: #### C BC ####[facility] [id number] [place], Erythrocyte distribution width (RBC) [Ratio] 13.9 % Normal 11.5-14.5 [facility] Comment on above: Performed By: #### C BC ####[facility] [id number] [place], Hematocrit (Bld) [Volume fraction] 18.9 % Critically low 36.0-46.0 [facility] Comment on above: Performed By: #### C BC ####[facility] [id number] [place], Hemoglobin (Bld) [Mass/Vol] 6.5 g/dL Critically low 12.0-15.0 [facility] Comment on above: Performed By: #### C BC ####[facility] [id number] [place] [address], MCH (RBC) [Entitic mass] 31.5 pg Normal 26.0-34.0 [facility] Comment on above: Performed By: #### C BC ####[facility] [id number] [place], MCHC (RBC) [Mass/Vol] 34.6 g/dL Normal 32.0-35.9 [facility] Comment on above: Performed By: #### C BC ####[facility] [id number] [place], MCV (RBC) [Entitic vol] 91 fL Normal 80-100 [facility] [place] Comment on above: Performed By: #### C BC ####[facility] [id number] [place], Platelet mean volume (Bld) [Entitic vol] 7.5 fL Normal 7.5-11.2 [facility] Comment on above: Performed By: #### C BC ####S PATHOLOGY [id number] [place], Platelets (Bld) [#/Vol] 217 10*3/uL Normal 150-400 [facility] Comment on above: Performed By: #### C BC ####S PATHOLOGY [id number] [place], [place], RBC (Bld) [#/Vol] 2.07 10*6/uL Low 4.00-5.20 [facility] Comment on above: Performed By: #### C BC ####[facility] [id number] [place], WBC (Bld) [#/Vol] 10.2 10*3/uL Normal 4.5-11.5 [facility] Comment on above: Performed By: #### C BC ####[facility] [id number] [place], [place], Care Plan Noteon 05-16-2023 Healthcare Consulting Manager Authentication Interface Message Text Problem: Routine [...] Hourly rounding performed. Outcome: Progressing Normal [facility] GLUCOSE, FINGERSTICK-IN OFFI CEon 05-16-2023 Glucose [Mass/Vol] 142 mg/dL High 80-116 [facility] Comment on above: Performed By: #### C BC #### [facility] [address] [place] [address], Glucose [Mass/Vol] 134 mg/dL High 80-116 [facility] Comment on above: Performed By: #### C R BGA, CR GLU, CR ICA, CR COOX, CR LYTES, LACT #### [facility] [address] [place] [address], Glucose [Mass/Vol] 156 mg/dL High 80-116 [facility] Comment on above: Performed By: #### C R BGA, CR GLU, CR ICA, CR COOX, CR LYTES, LACT #### [facility] [address] [place] [address], Glucose [Mass/Vol] 132 mg/dL High 80-116 [facility] Comment on above: Performed By: #### 8 2948 ####NURSING GLUCOSE [id number] [place], [address] LEVETIRACETAMon 05-16-2023 LEVETIRA 22.4 ug/mL Normal 6.0-46.0 [facility] Comment on above: Performed By: #### C R BGA, CR GLU, CR ICA, CR COOX, CR LYTES, LACT #### S PATHOLOGY LABORATORY [address] [place], [place], MAGNESIUMon 05-16-2023 Magnesium [Mass/Vol] 2.1 mg/dL Normal 1.6-2.8 [facility] Comment on above: Performed By: #### C BC #### S PATHOLOGY LABORATORY [address] [place], [place], Progress Noteson 05-16-2023 Healthcare Consulting Manager Authentication Interface Message Text ----- GENERAL [...] mandibular fracture with TMJ dislocation. Transferred to [facility] for operative intervention. Hospital Course: 05/13/23: Transferred to [facility] for R hip fracture, L mandibular fracture [...] Intake/Output Summary (Last 24 hours) at 05/16/2023 0627 Last data filed at 05/16/2023 0300 Gross [...] Incidental Findings: None on imaging obtained at [facility] ([facility], 05/14/23) Plan: Neurological: Acute pain due to trauma, acute post-op pain. Hx (more content not included)... Normal [facility] Healthcare Consulting Manager Authentication Interface Message Text /SCOTTIE Valles notified of critical Hematocrit and Hemoglobin value of 18.8 and 6.3. /SCOTTIE Valles read back critical results. New orders received. Normal [facility] RED BLOOD CELL COMPONENTon 0 05-16-2023 BB ORDER ITEM Product status info to follow Normal [facility] Comment on above: Performed By: #### R EMILIANO ####S PATHOLOGY [id number] [place], [place], RED BLOOD CELL UNIT STATUSon 05-16-2023 BLOOD PRODUCT CODE [id number] Normal [facility] Comment on above: Performed By: #### C BC #### [facility] [address], [place], BLOOD PRODUCT DESCRIPTION Red Blood Cells Normal [facility] Comment on above: Performed By: #### C BC #### [facility] [address], [place], BLOOD PRODUCT STATUS Transfused Normal [facility] Comment on above: Performed By: #### C BC #### [facility] [address] [place], [place], BLOOD PRODUCT UNIT INFO [id number] Normal [facility] Comment on above: Performed By: #### C BC #### [facility] [address], [place], BLOOD PRODUCT UNIT TYPE 5100 Normal [facility] Comment on above: Result Comment: O Po s Performed By: #### C BC #### [facility] [address], [place], CROSSMATCH INTERPRETATION Compatible (E) Normal [facility] Comment on above: Performed By: #### C BC #### [facility] [address], [place], VITAMIN D, 25-HYDROXYon 05-03 VITD25 54 ng/mL Normal 30-100 [facility] Comment on above: Order Comment: Defic ient : <20.0 ng/mLInsufficient : 20.0-29.9 ng/mLSufficient : 30.0 - 100.0 ng/mLPotential Toxicity : >100.0 ng/mL Performed By: #### V ITD25 ####[facility] [id number] [place], [place], BASIC METABOLIC PANELon 05-03 Anion gap [Moles/Vol] 19 mmol/L Normal 10-20 [facility] Comment on above: Performed By: #### C R BGA, CR GLU, CR ICA, CR COOX, CR LYTES, LACT #### [facility] [address] [place] [address], Calcium [Mass/Vol] 7.7 mg/dL Low 8.6-10.3 [facility] Comment on above: Result Comment: Note updated reference ranges. Performed By: #### C R BGA, CR GLU, CR ICA, CR COOX, CR LYTES, LACT #### [facility] [address], [place], Chloride [Moles/Vol] 98 mmol/L Normal 98-107 [facility] Comment on above: Result Comment: Note updated reference ranges. Performed By: #### C R BGA, CR GLU, CR ICA, CR COOX, CR LYTES, LACT #### [facility] [address] [place] [address], CO2 [Moles/Vol] 22 mmol/L Normal 21-31 [facility] Comment on above: Result Comment: Note updated reference ranges. Performed By: #### C R BGA, CR GLU, CR ICA, CR COOX, CR LYTES, LACT #### [facility] [address] [place] [address], Creatinine [Mass/Vol] 2.26 mg/dL High 0.60-1.20 [facility] Comment on above: Result Comment: Note updated reference ranges. Performed By: #### C R BGA, CR GLU, CR ICA, CR COOX, CR LYTES, LACT #### [facility] [address] [place], [place], ESTIMATED GFR (CKD-EPI) 22 mL/min/1.73sqm Low >=60 [facility] Comment on above: Result Comment: 2020 [...] Inclusion of Race in Diagnosing Kidney Disease. [place] Journal of Kidney Diseases 202;79(2):268-88.e1. 2. N Engl J Med 1 Vol. 385 Issue 19 Pages 8083-1582 Performed By: #### C R BGA, CR GLU, CR ICA, CR COOX, CR LYTES, LACT #### [facility] [address] [place], [place], Glucose [Mass/Vol] 126 mg/dL High 74-109 [facility] Comment on above: Performed By: #### C R BGA, CR GLU, CR ICA, CR COOX, CR LYTES, LACT #### [facility] [address] [place], [place], Potassium [Moles/Vol] 4.0 mmol/L Normal 3.5-5.0 [facility] Comment on above: Result Comment: Note updated reference ranges. Note updated reference ranges. Performed By: #### C R BGA, CR GLU, CR ICA, CR COOX, CR LYTES, LACT #### [facility] [address] [place] [address], Sodium [Moles/Vol] 135 mmol/L Low 136-145 [facility] Comment on above: Result Comment: Note updated reference ranges. Performed By: #### C R BGA, CR GLU, CR ICA, CR COOX, CR LYTES, LACT #### S [facility] LABORATORY [address] [place] [address], Urea nitrogen [Mass/Vol] 52 mg/dL High 7-25 [facility] Comment on above: Result Comment: Note updated reference ranges. Performed By: #### C R BGA, CR GLU, CR ICA, CR COOX, CR LYTES, LACT #### [facility] [address] [place] [address], COMPLETE BLOOD COUNTon 05-15 Erythrocyte distribution width (RBC) [Ratio] 14.3 % Normal 11.5-14.5 [facility] Comment on above: Performed By: #### C BC #### [facility] [address] [place] [address], Hematocrit (Bld) [Volume fraction] 23.8 % Low 36.0-46.0 [facility] Comment on above: Performed By: #### C BC #### [facility] [address] [place] [address], Hemoglobin (Bld) [Mass/Vol] 8.0 g/dL Low 12.0-15.0 [facility] Comment on above: Performed By: #### C BC #### [facility] [address] [place] [address], MCH (RBC) [Entitic mass] 31.0 pg Normal 26.0-34.0 [facility] Comment on above: Performed By: #### C BC #### [facility] [address] [place] [address], MCHC (RBC) [Mass/Vol] 33.8 g/dL Normal 32.0-35.9 [facility] Comment on above: Performed By: #### C BC #### [facility] [address] [place] [address], MCV (RBC) [Entitic vol] 92 fL Normal 80-100 [facility] Comment on above: Performed By: #### C BC #### [facility] [address] [place] [address], Platelet mean volume (Bld) [Entitic vol] 7.7 fL Normal 7.5-11.2 [facility] Comment on above: Performed By: #### C BC #### [facility] [address] [place], [place], Platelets (Bld) [#/Vol] 225 10*3/uL Normal 150-400 [facility] Comment on above: Performed By: #### C BC #### [facility] [address] [place] [address], RBC (Bld) [#/Vol] 2.60 10*6/uL Low 4.00-5.20 [facility] Comment on above: Performed By: #### C BC #### [facility] [address] [place] [address], WBC (Bld) [#/Vol] 10.3 10*3/uL Normal 4.5-11.5 [facility] Comment on above: Performed By: #### C BC #### [facility] [address] [place] [address], Care Plan Noteon 05-15-2023 Healthcare Consulting Manager Authentication Interface Message Text I was [...] of metopolol. Ramy Whitfield, DO Normal [facility] GLUCOSE, FINGERSTICK-IN OFFI CEon 05-15-2023 Glucose [Mass/Vol] 162 mg/dL High 80-116 [facility] Comment on above: Performed By: #### 8 [id number] #### NURSING GLUCOSE PROGRAM [address] [place] [address], Glucose [Mass/Vol] 171 mg/dL High 80-116 [facility] Comment on above: Performed By: #### 8 2948 #### NURSING GLUCOSE PROGRAM [address] [place], [address] Glucose [Mass/Vol] 190 mg/dL High 80-116 [facility] Comment on above: Performed By: #### C R BGA, CR GLU, CR ICA, CR COOX, CR LYTES, LACT #### [facility] [address] [place] [address], Glucose [Mass/Vol] 149 mg/dL High 80-116 [facility] Comment on above: Performed By: #### C R BGA, CR GLU, CR ICA, CR COOX, CR LYTES, LACT #### [facility] [address] [place] [address], MAGNESIUMon 05-15-2023 Magnesium [Mass/Vol] 1.4 mg/dL Low 1.6-2.8 [facility] Comment on above: Performed By: #### C R BGA, CR GLU, CR ICA, CR COOX, CR LYTES, LACT #### [facility] [address] [place] [address], Progress Noteson 05-15-2023 Healthcare Consulting Manager Authentication Interface Message Text ----- GENERAL [...] mandibular fracture with TMJ dislocation. Transferred to [facility] for operative intervention. Hospital Course: 05/13/23: Transferred to [facility] for R hip fracture, L mandibular fracture [...] mL (kim catheter) BM: Last BM documented RESEARCH ASST PHYSICAL EXAM Vital Signs: Vital sign ranges [...] (last 72 hours) Glucose 05/14/23 2134 184 05/14/23 1605 166 05/14/23 1229 120 05/14/23 0826 143 IMAGING RESULTS (PERSONALLY REVIEWED) No new imaging following surgery. ------ ASSESSMENT AND PLAN ------- (more content not included)... Normal [facility] ABO RH TYPEon 05-14-2023 ABO and Rh group Nom (Bld) Blood group O Rh(D) positive Normal [facility] Comment on above: Performed By: #### C R BGA, CR GLU, CR ICA, CR COOX, CR LYTES, LACT #### [facility] [address] [place], [address] AdmissionCareon 05-14-2023 Healthcare Consulting Manager Authentication Interface Message Text AdmissionCare Guideline: Hip Fracture, Inpatient Based on the indications selected for the patient, the bed status of Admit to Inpatient was determined to be MET The following indications were selected as present at the time of evaluation of the patient: - Hip fractureOperative Status Criteria selected: Inpatient AdmissionCare documentation entered by: Laura Hernández [facility] [place] [employer], 27 edition, Copyright ??? 2022 [facility] [place] [employer] [facility] All Rights Reserved. [id number]:[id number]:00 Normal [facility] Anesthesia Postprocedure Stefani luationon 05-14-2023 Healthcare Consulting Manager Authentication Interface Message Text Anesthesia Postoperative [...] EVENTS: No notable events documented. Normal [facility] Anesthesia Preprocedure Eval uationon 05-14-2023 Healthcare Consulting Manager Authentication Interface Message Text ASA: 4 [...] missing Endo (+) diabetes mellitus type 2 manager information (+) post-menopausal (-) not Neuro/Psych (+) depression, [...] CKD stage 3b, depression, anxiety presents to [facility] c/o right hip pain after falling. C. [...] Neuro Abnormal sensation Plan Attestation: Normal [facility] Anesthesia Transfer Of Gloriao n 05-14-2023 Healthcare Consulting Manager Authentication Interface Message Text Patient taken [...] Closed displaced intertrochanteric fracture of right femur ([facility]) [S72.141A] Past Surgical History: There is no previous surgical history on file. Allergies: Bee venom, Extra strength grapefruit, Grapefruit extract, Lanolin, Naproxen, and Pineapple Basic Operating Room Facts: Surgeon(s): Colt Live DO Anesthesiologist: Meng Bustillo MD; Oma Sneed MD INSTRUCTOR PROGRAMMABLE CONTROLLERS: Dale Whiteside APRN-INSTRUCTOR PROGRAMMABLE CONTROLLERS Spoon Maker: Ramon Paez MD REDUCTION, OPEN, FEMUR, INTRAMEDULLARY [...] Secured via: Taped 05/14/23 1339 Site Assessment WN 05/14/23 1339 All non-working IVs have been [...] was received. Ramon Paez MD Normal [facility] BASIC METABOLIC PANELon 05-03 Anion gap [Moles/Vol] 17 mmol/L Normal 10-20 [facility] Comment on above: Performed By: #### C R BGA, CR GLU, CR ICA, CR COOX, CR LYTES, LACT #### [facility] [address] [place] [address], Calcium [Mass/Vol] 6.9 mg/dL Low 8.6-10.3 [facility] Comment on above: Result Comment: Note updated reference ranges. Performed By: #### C R BGA, CR GLU, CR ICA, CR COOX, CR LYTES, LACT #### [facility] [address] [place] [address], Chloride [Moles/Vol] 98 mmol/L Normal 98-107 [facility] Comment on above: Result Comment: Note updated reference ranges. Performed By: #### C R BGA, CR GLU, CR ICA, CR COOX, CR LYTES, LACT #### [facility] [address] [place] [address], CO2 [Moles/Vol] 23 mmol/L Normal 21-31 [facility] Comment on above: Result Comment: Note updated reference ranges. Performed By: #### C R BGA, CR GLU, CR ICA, CR COOX, CR LYTES, LACT #### [facility] [address], [place], Creatinine [Mass/Vol] 1.80 mg/dL High 0.60-1.20 [facility] Comment on above: Result Comment: Note updated reference ranges. Performed By: #### C R BGA, CR GLU, CR ICA, CR COOX, CR LYTES, LACT #### [facility] [address] [place], [place], ESTIMATED GFR (CKD-EPI) 29 mL/min/1.73sqm Low >=60 [facility] Comment on above: Result Comment: 2020 [...] Inclusion of Race in Diagnosing Kidney Disease. [place] Journal of Kidney Diseases 202;79(2):268-88.e1. 2. N Engl J Med 2020 Vol. 385 Issue 19 Pages 9352-4949 Performed By: #### C R BGA, CR GLU, CR ICA, CR COOX, CR LYTES, LACT #### [facility] [address], [place], Glucose [Mass/Vol] 140 mg/dL High 74-109 [facility] Comment on above: Performed By: #### C R BGA, CR GLU, CR ICA, CR COOX, CR LYTES, LACT #### [facility] [address], [place], Potassium [Moles/Vol] 3.5 mmol/L Normal 3.5-5.0 [facility] Comment on above: Result Comment: Note updated reference ranges. Note updated reference ranges. Performed By: #### C R BGA, CR GLU, CR ICA, CR COOX, CR LYTES, LACT #### [facility] [address], [place], Sodium [Moles/Vol] 134 mmol/L Low 136-145 [facility] Comment on above: Result Comment: Note updated reference ranges. Performed By: #### C R BGA, CR GLU, CR ICA, CR COOX, CR LYTES, LACT #### [facility] [address] [place] [address], Urea nitrogen [Mass/Vol] 47 mg/dL High 7-25 [facility] [place] Comment on above: Result Comment: Note updated reference ranges. Performed By: #### C R BGA, CR GLU, CR ICA, CR COOX, CR LYTES, LACT #### [facility] [address] [place] [address], BLOOD GAS, ARTERIALon 2023 CR JAIRO -2.2 mmol/L Low -2.0-3.0 [facility] [place] Comment on above: Performed By: #### C R BGA, CR GLU, CR ICA, CR COOX, CR LYTES, LACT #### [facility] [address] [place] [address], CR PCO2 42.4 mm Hg Normal 35.0-45.0 [facility] Comment on above: Performed By: #### C R BGA, CR GLU, CR ICA, CR COOX, CR LYTES, LACT #### [facility] [address] [place] [address], CR PHA 7.349 Low 7.350-7.450 [facility] Comment on above: Performed By: #### C R BGA, CR GLU, CR ICA, CR COOX, CR LYTES, LACT #### [facility] [address] [place] [address], CR PO2 187 mm Hg High 80-100 [facility] Comment on above: Performed By: #### C R BGA, CR GLU, CR ICA, CR COOX, CR LYTES, LACT #### [facility] [address] [place] [address], HCO3 (Bld) [Moles/Vol] 23 mmol/L Normal 21-28 [facility] Comment on above: Performed By: #### C R BGA, CR GLU, CR ICA, CR COOX, CR LYTES, LACT #### S [facility] LAB[facility]AT[facility] [address], [place], Oxygen saturation in Blood 99.0 % Normal 95.0-99.0 [facility] Comment on above: Performed By: #### C R BGA, CR GLU, CR ICA, CR COOX, CR LYTES, LACT #### S [facility] [address], [place], Blood Attestationon 05-14-19 Healthcare Consulting Manager Authentication Interface Message Text Blood Attestation: ATTESTATION OF INFORMED CONSENT FOR BLOOD: The transfusion of blood and/or blood components were discussed with the patient and/or legal accounts receivable representative. The risks, benefits and alternatives were reviewed. Questions regarding blood transfusions were answered. The patient /or the patient's legal accounts receivable representative agree with the plan for transfusion of blood and/or blood components. Normal [facility] Brief Operative Noteon 05-14 Healthcare Consulting Manager Authentication Interface Message Text Brief Operative Note MAIN OR 02 Kate Hagen 72 year old female Surgical Contact Serial Number: [id number] Preoperative Diagnosis: Pre-op Diagnosis * Closed displaced intertrochanteric fracture of right femur, initial encounter ([facility]) [S72.141A] Postoperative Diagnosis: * Closed displaced intertrochanteric fracture of right femur, initial encounter ([facility]) [S72.141A] Procedures: Cephalomedullary ramon right femur Surgeon(s): Surgeon(s): Colt Live DO Staff: Nurse: Cindy Lovett RN Scrub: Carole Snyder Rodney It Communications Manager Nurse: Cierra Marquez RN Fiber Locking Supervisor: Karena Worthy Pediatric Anesthesiologist: Cathy Juárez MD; Gregorio Cho MD Anesthesia: General Anesthesiologist: Meng Bustillo MD; Oma Sneed MD INSTRUCTOR PROGRAMMABLE CONTROLLERS: Dale Whiteside APRN-INSTRUCTOR PROGRAMMABLE CONTROLLERS Spoon Maker: Ramon Paez MD Specimen(s): * No specimens in log * Estimated Blood Loss: greater than 10 cc -- Esitmated Amount: 50 ccs Lines/Drains: Peripheral IV Access: 05/13/23 20 gauge Anterior;Left Forearm Present on Transfer to Unit / Floor (Active) Site Assessment WNL;Dressing intact 05/14/23904 Infusion Status Port #1 Infusing;Patent 05/14/23904 Peripheral IV Access: 05/14/23 135 18 gauge Right Hand (Active) Site Assessment WNL;Dressing intact 05/14/23 135 Infusion Status Port #1 Infusing;Patent;Positive blood return 05/14/231356 Temporarily Retained Foreign Object: No Location: N/a [...] Cho MD 05/14/2023 3:27 PM Normal [facility] CALCIUM, IONIZEDon CR ICA 1.00 mmol/L Low 1.15-1.33 [facility] Comment on above: Result Comment: This test was developed, and its performance characteristics determined by the Department of Pathology of [facility]. It has not been cleared or approved by the FDA. This test is used for clinical purposes only. Performed By: #### C R BGA, CR GLU, CR ICA, CR COOX, CR LYTES, LACT #### S PATHOLOGY LABORATORY [address] [place] [address], CO-OXIMETERon 05-14-2023 CARBOXYHEMOGLOBIN 1.0 % Normal 0.5-1.5 [facility] Comment on above: Performed By: #### C R BGA, CR GLU, CR ICA, CR COOX, CR LYTES, LACT #### [facility] [address], [place], CR HBMET 1.5 % Normal 0.0-1.5 [facility] Comment on above: Performed By: #### C R BGA, CR GLU, CR ICA, CR COOX, CR LYTES, LACT #### [facility] [address] [place] [address], Hematocrit (Bld) [Volume fraction] 31.0 % Low 38.0-46.0 [facility] [place] Comment on above: Performed By: #### C R BGA, CR GLU, CR ICA, CR COOX, CR LYTES, LACT #### [facility] [address] [place] [address], Hemoglobin (Bld) [Mass/Vol] 10.0 g/dL Low 12.0-16.0 [facility] Comment on above: Performed By: #### C R BGA, CR GLU, CR ICA, CR COOX, CR LYTES, LACT #### [facility] [address] [place] [address], OXYHEMOGLOBIN 96.5 % Normal 94.0-98.0 [facility] [place] Comment on above: Performed By: #### C R BGA, CR GLU, CR ICA, CR COOX, CR LYTES, LACT #### [facility] [address] [place] [address], COMPLETE BLOOD COUNTon 05-14 Erythrocyte distribution width (RBC) [Ratio] 14.1 % Normal 11.5-14.5 [facility] [place] Comment on above: Performed By: #### C BC #### [facility] [address] [place] [address], Hematocrit (Bld) [Volume fraction] 27.0 % Low 36.0-46.0 [facility] Comment on above: Performed By: #### C BC #### [facility] [address] [place] [address], Hemoglobin (Bld) [Mass/Vol] 9.4 g/dL Low 12.0-15.0 [facility] [place] Comment on above: Performed By: #### C BC #### [facility] [address] [place] [address], MCH (RBC) [Entitic mass] 31.5 pg Normal 26.0-34.0 [facility] Comment on above: Performed By: #### C BC #### [facility] [address] [place], [place], MCHC (RBC) [Mass/Vol] 34.8 g/dL Normal 32.0-35.9 [facility] Comment on above: Performed By: #### C BC #### [facility] [address] [place], [place], MCV (RBC) [Entitic vol] 91 fL Normal 80-100 [facility] Comment on above: Performed By: #### C BC #### S PATHOLOGY LABORATORY [address], [place], Platelet mean volume (Bld) [Entitic vol] 7.1 fL Low 7.5-11.2 [facility] Comment on above: Performed By: #### C BC #### [facility] [address], [place], Platelets (Bld) [#/Vol] 149 10*3/uL Low 150-400 [facility] Comment on above: Performed By: #### C BC #### [facility] [address], [place], RBC (Bld) [#/Vol] 2.98 10*6/uL Low 4.00-5.20 [facility] Comment on above: Performed By: #### C BC #### [facility] [address], [place], WBC (Bld) [#/Vol] 9.7 10*3/uL Normal 4.5-11.5 [facility] Comment on above: Performed By: #### C BC #### [facility] [address] [place], [place], CT FACIAL BONES W/O CONTRAST on [...] Paranasal sinus disease. MACRO: None Normal [facility] [employer] CTA HEAD W/on 05-14-2023 CTA HEAD W/ [...] arteries, PICA/AICA branches, basilar artery, SCAs and investigator claims are patent. No vessel cutoff, aneurysm or focal hemodynamically significant stenosis. IMPRESSION: 1. No acute intracranial abnormality. 2. Displaced left mandibular condyle fracture with dislocated TMJ joint. 3. No significant stenosis, dissection, or aneurysm in the intracranial circulation. MACRO: None Normal [facility] [employer] Care Plan Noteon 05-14-2023 Healthcare Consulting Manager Authentication Interface Message Text Problem: Routine [...] will be met Outcome: Progressing Normal The [employer] Interface Message Text Clear for surgery Laura Hernández MD Resident Physician Trauma Surgery Pager: [phone] Normal [facility] [employer] Authentication Interface Message Text Trauma Surgery Benefits of contrast outweigh risks for CT Neck in setting of recent trauma. GFR 29 today. Cr at baseline 1.8. Baseline GFR 35 per care everywhere. On LR while NPO. Not on dialysis. Laura Hernández MD Resident Physician Trauma Surgery Pager: [phone] Normal [facility] Differential Authentication Interface Message Text Problem: Routine Care: [...] will be met Outcome: Progressing Normal [facility] 05-14-2023 Healthcare Consulting Manager Authentication Interface Message Text ----- Attestation [...] resident's note. Meng Leos DMD, MD ----- PERSONAL CLOTHING LAUNDRY AIDE CONSULTATION NOTE Attending requesting consult: Jose Carbajal DO Reason for consult: Mandibular Condyle Fracture HPI: Kate Hagen is a 72 year old female with PMHx significant for A-fib (Eliquis), HTN, T2DM (A1C = 5.6), Chronic back pain, currently under contact precautions d/t C. Diff colitis, is being consulted by the [facility] Facial trauma team for evaluation of a fracture to the L mandibular condyle. Patient states she sustained the trauma 1 week ago after suffering a GLF, went to an outside facility on 05/13/23 and was transferred to [facility]. Patient was taken to the OR today [...] Resource Strain: Medium Risk (01/29/2023) Received from [facility] Overall Financial Resource Strain (CARDIA) Difficulty of Paying Living Expenses: Somewhat hard Food Insecurity: No Food Insecurity (04/20/2023) Received from [facility] Hunger Screening Within the past 12 months we worried whether our food would run out before we got money to buy more.: Never True Within the past 12 months the food we bought just didn't last and we didn't have money to get more.: Never True Transportation Needs: No Transportation Needs (01/29/2023) Received from [facility] PRAPARE - Transportation Lack of Transportation (Medical): No Lack of Transportation (Non-Medical): No Physical Activity: Inactive (01/29/2023) Received from [facility] Exercise Vital Sign Days of Exercise per Week: 0 days Minutes of Exercise per Session: 0 min Stress: Stress Concern Present (01/29/2023) Received from [facility] [place] [facility] - Occupational Stress Questionnaire Feeling of Stress : To some extent Social Connections: Socially Isolated (01/29/2023) Received from [facility] Social Connection and Isolation Panel [NHANES] Frequency of Communication with Friends and Family: Once a week Frequency of Social Gatherings with Friends and Family: Three times a week Attends Restorationist Services: Never Active Member of Clubs or Organizations: No Attends Club or Organization Meetings: Never Marital Status: Intimate Partner Violence: Not At Risk (01/29/2023) Received from [facility] Humiliation, Afraid, Rape, and Kick questionnaire Fear of Current or Ex-Partner: No Emotionally Abused: No Physically Abused: No Sexually Abused: No Allergies: Allergies Allergen Reactions Bee Venom Swelling Extra Strength Grapefruit Rash Grapefruit Extract Rash Lanolin Naproxen Other Pineapple Other Current Facility-Administered Medications: oxyCODONE immediate release tablet, 2.5 mg, Oral, Q4H PRN OR oxyCODONE immediate release tablet, 5 mg, Oral, Q4H PRN, Johnson Chau APRN-CNP cyclobenzaprine (FLEXERIL) tablet, 10 mg, Oral, Every 8 hours, Johnson Chau APRN-CNP lidocaine (LIDODERM) 4 % patch, 1 Patch, Transdermal, Every 24 hours, Johnson Chau APRN-CNP ALPRAZolam (XANAX) tablet, 0.5 mg, Oral, 2x Daily PRN, Johnson Chau APRN-CNP [START ON 05/15/2023] polyethylene glycol (MIRALAX) 17 g packet, 17 g, Oral, Daily, Johnson Chau APRN-CNP [START ON (more content not included)... Normal [facility] Healthcare Consulting Manager Authentication Interface Message Text Wound Ostomy [...] the medical images provided and chart review, WOC Nursing recommendations are as follows: 1. B/L [...] If/when up in chair, please use a Shop pirate chair cushion (#[phone]) to assist with pressure redistribution. Continue using foam wedges to alternate right/left every hour if/when up in chair. Remove enough of the ointment to assess skin prior to reapplying ointment. (SensiCare contains petrolatum and zinc oxide). Patient is at an increased risk for skin breakdown due to frequent moisture exposure. If/when a break in the skin occurs, please re-consult [facility] Nursing for updated treatment recommendations. Additional [...] bed to one underpad only re-consult with [facility] Nursing Team as needed SEBASTIAN Reyna RN, CWOCN Normal [facility] Healthcare Consulting Manager Authentication Interface Message Text ----- Attestation [...] would like to proceed with surgery. Colt Live DO ----- Orthopaedic Surgery Consult H AND P Requesting Provider / Service: Trauma CC: Right hip pain HPI: 72 year old female with PMH of T2DM, neuropahty, MARGARITA, epilepsy, emphysema, CHF, afib, CKD stage 3b, depression, anxiety presents to [facility] c/o right hip pain after falling. She was transferred from [facility]. She admits to a ground level [...] Resource Strain: Medium Risk (01/29/2023) Received from [facility] Overall Financial Resource Strain (CARDIA) Difficulty of Paying Living Expenses: Somewhat hard Food Insecurity: No Food Insecurity (04/20/2023) Received from [facility] Hunger Screening Within the past 12 months we worried whether our food would run out before we got money to buy more.: Never True Within the past 12 months the food we bought just didn't last and we didn't have money to get more.: Never True Transportation Needs: No Transportation Needs (01/29/2023) Received from [facility] PRAPARE - Transportation Lack of Transportation (Medical): No Lack of Transportation (Non-Medical): No Physical Activity: Inactive (01/29/2023) Received from [facility] Exercise Vital Sign Days of Exercise per Week: 0 days Minutes of Exercise per Session: 0 min Stress: Stress Concern Present (01/29/2023) Received from [facility] [place] of [employer]ational [facility] - Occupational Stress Questionnaire Feeling of Stress : To some extent Social Connections: Socially Isolated (01/29/2023) Received from [facility] Social Connection and Isolation Panel [NHANES] Frequency of Communication with Friends and Family: Once a week Frequency of Social Gatherings with Friends and Family: Three times a week Attends Restorationist Services: Never Active Member of Clubs or Organizations: No Attends Club or Organization Meetings: Never Marital Status: Intimate Partner Violence: Not At Risk (01/29/2023) Received from [facility] Humiliation, Afraid, Rape, and Kick questionnaire Fear of Current or Ex-Partner: No Emotionally Abused: No Physically Abused: No Sexually Abused: No Allergies Allergen Reactions Bee Venom Swelling Extra Strength Grapefruit Rash Grapefruit Extract Rash Lanolin Naproxen Other Pineapple Other Current Facility-Administered Medications: bumetanide (BUMEX) tablet, 2 mg, Oral, 2x Daily Diuretic, Laura Hernández MD metoprolol (LOPRESSOR) tablet, 50 mg, Oral, 2x Daily, Laura Hernández MD, 50 mg at 05/13/23 2252 metolazone (ZAROXOLYN) tablet, 2.5 mg, Oral, Daily, Laura Hernández MD budesonide-formoterol (SYMBICORT) 80-4.5 MCG/ACT inhaler, 2 Puff, Inhalation, BID RT, Laura Hernández MD albuterol (PROVENTIL HFA) 108 (90 Base) MCG/ACT HFA inhaler, 2 Puff, Inhalation, Q4H RT, Laura Hernández MD, 2 Puff at 05/14/23 0051 cyclobenzaprine (FLEXERIL) tablet, 10 mg, Oral, 3x Daily PRN, Laura Hernández MD bumetanide (BUMEX) tablet, 1 mg, Oral, At Bedtime, Laura Hernández MD (more content not included)... Normal [facility] ELECTROLYTES[facility] 05-14-2023 Chloride [Moles/Vol] 100 mmol/L Normal 98-107 [facility] [place], [facility] Comment on above: Performed By: #### C R BGA, CR GLU, CR ICA, CR COOX, CR LYTES, LACT #### [facility] [address] [place] [address], [id number] Potassium [Moles/Vol] 3.2 mmol/L Low 3.5-5.0 [facility] Comment on above: Performed By: #### C R BGA, CR GLU, CR ICA, CR COOX, CR LYTES, LACT #### [facility] [address] [place] [address], Sodium [Moles/Vol] 135 mmol/L Low 136-146 [facility] Comment on above: Performed By: #### C R BGA, CR GLU, CR ICA, CR COOX, CR LYTES, LACT #### [facility] [address] [place] [address], GLUCOSE, FINGERSTICK-IN OFFI CEon 05-14-2023 Glucose [Mass/Vol] 184 mg/dL High 80-116 [facility] Comment on above: Performed By: #### C R BGA, CR GLU, CR ICA, CR COOX, CR LYTES, LACT #### [facility] [address] [place] [address], Glucose [Mass/Vol] 166 mg/dL High 80-116 [facility] Comment on above: Performed By: #### C R BGA, CR GLU, CR ICA, CR COOX, CR LYTES, LACT #### [facility] [address] [place] [address], Glucose [Mass/Vol] 120 mg/dL High 80-116 [facility] Comment on above: Performed By: #### C R BGA, CR GLU, CR ICA, CR COOX, CR LYTES, LACT #### [facility] [address] [place] [address], Glucose [Mass/Vol] 143 mg/dL High 80-116 [facility] Comment on above: Performed By: #### 8 2948 ####NURSING GLUCOSE [id number] [place], [address] GLUCOSE, WHOLE BLOODon 05-14 CR GLU 146 mg/dL High 70-105 [facility] Comment on above: Performed By: #### C R BGA, CR GLU, CR ICA, CR COOX, CR LYTES, LACT #### [facility] [address] [place] [address], LACTIC ACIDon 05-14-2023 CR LACT 0.8 mmol/L Normal 0.5-1.6 [facility] Comment on above: Performed By: #### C R BGA, CR GLU, CR ICA, CR COOX, CR LYTES, LACT #### [facility] [address] [place], [place], OP Noteon 05-14-2023 Healthcare Consulting Manager Authentication Interface Message Text Kate Hagen CSN: [id number] : 1950 Date of surgery: 05/14/23 Preop Dx: Closed, neurovascularly intact right intertrochanteric femur fracture Postop Dx: Same Procedure: Intramedullary ramon placement (CPT 51153) Use and interpretation of operating fluoroscopy less than 1 hour (CPT 22566) Surgeon: Roberto Resident/Fellow: Franck Cho Anesthesia: GETA Findings: Consistent with preoperative diagonsis Tourniquet: Not used EBL: 50 ccs Specimens: * No specimens in log * Complications: None Implants: Implant Name Type Inv. Item Serial No. Geophysics Scientist Lot No. LRB No. Used Action GAMMA LONG NAIL RIGHT 10MM X 360MM 130DEG STERILE Nail Rods AND Pins Deep [id number] Right 1 Implanted SCR BN 5MM 60MM T2 ALPHA LCK EA1 [id number] - [id number] Screw SCR BN 5MM 60MM T2 ALPHA LCK EA1 [id number] Sprague [id number] Right 1 Implanted SCR BN 5MM 45MM T2 ALPHA LCK EA1 [id number] - [id number] Screw SCR BN 5MM 45MM T2 ALPHA LCK EA1 [id number] Sprague [id number] Right 1 Implanted SCR BN 10.5MM 85MM GMA LG STRL EA1 [id number] - [id number] Screw SCR BN 10.5MM 85MM GMA LG STRL EA1 [id number] Deep [id number] Right 1 Implanted Indications: This is a 72 year old female who sustained the above injury after a fall. She was evaluated by the orthopaedic surgery resident communication electronic technician and found to have a closed and [...] were administered. She was placed on a Cataumet table in the supine position. A timeout [...] on behalf of Dr. Live Normal [facility] PARTIAL THROMBOPLASTIN TIMEo n 05-14-2023 aPTT Coag (Bld) [Time] 31 s Normal 25-37 Th e [facility] Comment on above: Performed By: #### 8 2948 #### NURSING GLUCOSE PROGRAM [address] [place] [address], [id number] PROTHROMBIN TIME AND INRon 0 05-14-2023 INR Coag (PPP) [Relative time] 1.30 {INR} High 0.90-1.10 [facility] Comment on above: Performed By: #### 8 2948 #### NURSING GLUCOSE PROGRAM [address] [place], [address] PT Coag (PPP) [Time] 14.6 s High 9.7-12.9 [facility] Comment on above: Performed By: #### 8 2948 #### NURSING GLUCOSE PROGRAM [address] [place], [address] Procedureson 05-14-2023 Healthcare Consulting Manager Authentication Interface Message Text Transthoracic Echocardiographic Report Name: XIAO Perez Physician: : 1950 Referring PETRONA DENIS MD Physician: Age: 72 Linux Network Engineer: Thalia Conti RDCS Exam Date: 05/14/2023 Fellow: [...] of saline was administered by Thalia Conti RDCS . Supine HR: 94 bpm Supine BP: [...] details. Authenticated by: Invalid Interpretation Code [facility] Progress Noteson 05-14-2023 Healthcare Consulting Manager Authentication Interface Message Text Home medications reviewed with patient's daughterKirstin: - Metolazone 2.5 mg daily - Advair [...] PRN - 3L home oxygen Normal [facility] Healthcare Consulting Manager Authentication Interface Message Text ----- GENERAL [...] mandibular fracture with TMJ dislocation. Transferred to [facility] for operative intervention. Hospital Course: 05/13/23: Transferred to [facility] for R hip fracture, L mandibular fracture [...] catheter from OSH) BM: Last BM documented RESEARCH ASST PHYSICAL EXAM Vital Signs: Vital sign ranges [...] Hct MCV RDW Plt PT aPTT INR 05/13/23 2334 31 05/13/23 2334 1.30 05/13/23 2334 9.7 2.98 9.4 27.0 91 14.1 149 Basic Metabolic Panel Na K Cl CO2 Gap Glu BUN Cr Ca Mg PO4 05/13/23 2334 134 Comment: Note updated reference [...] Incidental Findings: None on imaging obtained at [facility] ([facility], 05/14/23) Plan: Neurological: Acute pain due to trauma. 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 Normal [facility] Healthcare Consulting Manager Authentication Interface Message Text Trauma Surgery [...] lumbosacral joint. XR right femur: IN PROCESS Laura Hernández MD Resident Physician Trauma Surgery Pager: [phone] Normal [facility] TYPE AND SCREENon 05-14-2023 ABO and Rh group Nom (Bld) Blood group O Rh(D) positive Normal [facility] Comment on above: Performed By: #### C R BGA, CR GLU, CR ICA, CR COOX, CR LYTES, LACT #### S [facility] [address] [place] [address], ABO and Rh group Nom (Bld) No Previous Results Normal [facility] Comment on above: Performed By: #### C R BGA, CR GLU, CR ICA, CR COOX, CR LYTES, LACT #### S [facility] [address] [place], [place], ABSC INT Negative Normal [facility] Comment on above: Performed By: #### C R BGA, CR GLU, CR ICA, CR COOX, CR LYTES, LACT #### [facility] [address] [place] [address], [phone] XR CHEST AP OR PA 1 VIEWon 0 05-14-2023 XR CHEST AP OR PA 1 VIEW EXAMINATION: XR CHEST AP OR PA 1 VIEW 05/13/2023 11:15 PM CLINICAL HISTORY: Trauma, blunt; preop ASSOCIATED DIAGNOSIS: Trauma, blunt preop ORDERING PROVIDER: LAURA HERNÁNDEZ TECHNOLOGISTS NOTE: COMPARISON: None FINDINGS: Lines, tubes, and devices: None. Lungs and pleura: No focal pulmonary consolidation, effusion or pneumothorax. Cardiomediastinal silhouette: Normal cardiomediastinal silhouette. Musculoskeletal: Age indeterminate proximal left humerus fracture is partially visualized. IMPRESSION: No acute cardiopulmonary abnormality identified. MACRO: None Normal [facility] XR FEMUR RIGHT MINIMUM 2 VIE WSon 05-14-2023 XR FEMUR RIGHT MINIMUM 2 VIEWS EXAMINATION: XR FEMUR RIGHT MINIMUM 2 VIEWSPRO/RT 05/14/2023 03:52 AM CLINICAL HISTORY: trauma ASSOCIATED DIAGNOSIS: ORDERING PROVIDER: LAURA HERNÁNDEZ TECHNOLOGISTS NOTE: COMPARISON: None IMPRESSION: Intertrochanteric femur fracture with angulation. No dislocation. Right femur MACRO: None Normal [facility] XR HIP RIGHT W/ PELVIS MIN [...] joint. Right hip MACRO: None Normal [facility] H AND Guille 05-13-2023 Healthcare Consulting Manager Authentication Interface Message Text ----- Attestation [...] and Emergency General Surgery Department of Surgery [facility] ----- [facility] Department of Surgery Division of Trauma Surgery, Acute Care Surgery, Critical Care, and [place] TRAUMA SURGERY HISTORY AND PHYSICAL Kate Hagen [id number] BASIC INJURY INFORMATION: Level of activation: Trauma transfer from OSH direct admit Mode of transport: Ambulance: transfer from [place] Mechanism of injury: Fall from ground level [...] paper at home. History provided by daughter DPROBINA via phone. Reports that patient fell and [...] ordered (more content not included)... Normal [facility] CT BRAIN WO CONTon CT BRAIN WO [...] Lin MD on 05/07/2023 5:32 PM Normal [facility] Screenson 04-30-2023 Screens [id number]#1.00TIFF Normal [facility] Heart TransthoracicOrdere d By: Colin Carrillo on 04-30-2023 Aortic Valve Area by Continuity of Peak Velocity 1.21 [facility] Work Phone: [phone] Aortic Valve Area by Continuity of VTI 1.29 [facility] Work Phone: 1 00 AV mn grad 15.0 [facility] Work Phone: 1 00 AV pk grad 28.9 [facility] Work Phone: 1 00 AV pk amrit 2.69 [facility] Work Phone: 1 00 LV A4C EF 43.9 [facility] Work Phone: 1 00 LVIDd 3.90 [facility] Work Phone: 1 00 LVOT diam 2.10 [facility] Work Phone: 1 00 MV avg E/e' ratio 18.50 [facility] Work Phone: 1 00 MV E/A ratio 0.76 [facility] Work Phone: 1 00 RVSP 34.6 [facility] Work Phone: 1 [facility] Work Phone: Heart Transthoracicon [facility] [address] [facility], [address], [place] [address] TRANSTHORACIC ECHOCARDIOGRAM REPORT Patient Name: KATE HAGEN Reading Physician: [id number] Colin Carrillo MD, 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 Colin Henderson M D - 04/30/[address], [address] [address] TRANSTHORACIC ECHOCARDIOGRAM REPORT Patient Name: KATE Cuba Physician: [id number] Colin Carrillo MD, 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: ROBER Gender: F Additional Staff: Height: 152.40 cm Admit Date: Weight: 72.58 kg Admission Status: BSA: 1.70 m2 Department Location: [facility] Blood Pressure: 122 /64 mmHg Study Type: TRANSTHORACIC ECHO (TTE) COMPLETE Diagnosis/ICD: Nonrheumatic aortic (valve) stenosis-I35.0 Indication: Paroxysmal Atrial Fibrillation, COPD-on O2 at 2-3l, Diabetes, HTN, Hyperlipidemia, Tobacco Abuse, CKD-Stage III, Pulmonary HTN CPT Codes: Echo Complete w Full Doppler-[id number] Study Detail: The following Echo studies were [...] 0.9 m/s (0.6-0.9m/s) PV Max P.3 mmHg [id number] Colin Carrillo MD, FACC Electronically signed on 04/30/2023 at 3:47:08 PM Final (more content not included)... [facility] Work Phone: Ambulatory Visit Summaryon 1 06-29-2022 Ambulatory Visit Summary KATE HAGEN :1950 Visit Date:04/28/2023 Ambulatory Visit Instructions Your Diagnosis Recurrent UTI Pneumaturia Adrenal mass Urinary retention Renal cyst Urgency of urination Your Care Team Attending Physician - Jacqui Michael MD Primary Care Physician - BARRY BARBER MD Referring Physician - Jacqui Michael [...] PM EST With: Lani Wasserman CNP Where: [facility] Normal [facility] Ambulatory Visit Summary KATE HAGEN :1950 Visit Date:04/28/2023 Ambulatory Visit Instructions Your Diagnosis Recurrent UTI Pneumaturia Adrenal mass Urinary retention Renal cyst Urgency of urination Your Care Team Attending Physician - Alec XIE, Jacqui Perez. Primary Care Physician - BARRY BARBER MD Referring Physician - Jacqui Michael [...] PM EST With: Lani Wasserman CNP Where: [facility] Normal [facility] Patient Educationon 04-28-20 Patient Education Obstetrics and Gynec ology Urinary [...] these instructions at home: Medicines ? Take kgbm-leh-anqxjbm and prescription medicines only as told by [...] provider. Document Revised: 11/29/2020 Document Reviewed: 11/29/2020 [employer] [employer] Patient Education ? 2022 [employer]. Carline [facility] Urology Office/Clinic Noteon 04-28-2023 Urology Office/Clinic [...] on. Follow up in 3 mos with [facility]. All questions/concerns were discussed. Pt to call [...] -likely due to (more content not included)... [facility] Comment on above: Result Comment: Elec tronically Signed By: Alec XIE, Jacqui Nieves\.br\Date and Time Signed: 04/28/23 10:55 EST\.br\Electronically Co-Signed By: Brisa Russell\.br\Date and Time Co-Signed: 04/28/23 10:25 EST Physician Referralon 023 Physician Referral [id number]#1.00TIFF [facility] Physician Referralon 023 Physician Referral [id number]#1.00TIFF [facility] Consent for Procedure/Surger yon 02-22-2023 Consent for Procedure/Surgery [id number]#1.00TIFF [facility] Consent for Treatmenton 02-01 Consent for Treatment [id number]#1.00TIFF [facility] Inpatient Patient Summaryon 02-22-2023 Inpatient Patient Summary [address] [address] Clinical Summary Person Information Name: KATE HAGEN Age: 72 Years : 1950 Sex: Female PCP: BARRY BARBER MD Marital Status: Race: White Ethnicity: Non- or Language: Zimbabwean Visit Id: Visit Reason: RECURRENT UTI Speciality: Acuity: Enc Type: Outpatient Med Service: Surgery Arrival: 02/22/2023 09:20:37 Discharge: Dispo Type: Address: [address] [place] [phone] Provider Notes: Diagnosis: Emphysematous cystitis; Pneumaturia; Recurrent [...] Follow up: With: Address: When: Jacqui Michael [address] [place] [phone] Business (1) [address], [address], [facility] [facility] [address] [place] [address] [phone] Business (1) Comments: Office to schedule follow up in 1 to 2 months Patient Education Information: EU - Cystoscopy Discharge Instructions (CUSTOM) Normal [facility] IntraOperative Documentson 1 IntraOperative Documents [id number] Normal [facility] Main OR Intraoperative Recor don 02-22-2023 Main OR Intraoperative Record IntraOp Document Type FTURO Summary Primary Physician: Jacqui Michael MD Finalized Date/Time: 02/22/23 10:39:48 Pt. Name: KATE HAGEN/Sex: 1950 Female Med Rec #: [id number] Physician: Jacqui Michael MD Financial #: [id number] Pt. Type: O Room/Bed: / Admit/Disch: 02/22/23 09:20:37 - Institution: Case Times FTURO Entry 1 Patient Times In Room 02/22/23 10:18:00 Out Room 02/22/23 10:35:00 Procedure Times Start 02/22/23 10:23:00 Stop 02/22/23 10:29:00 Anesthesia Times Last Modified By: Keisha Pride RN 02/22/23 10:35:59 Case Attendance FTURO Entry 1 Entry 2 Entry 3 Case Attendee Jacqui Michael MD [facility], Keisha Pride RN, Keisha Schmitz Role Performed Surgeon - Primary Scrub - Primary It Communications Manager - Primary Time In 02/22/23 10:18:00 02/22/23 10:18:00 02/22/23 10:18:00 Time Out 02/22/23 10:35:00 02/22/23 10:35:00 02/22/23 10:35:00 Procedure CYSTOSCOPY LOCAL(.) CYSTOSCOPY LOCAL(.) CYSTOSCOPY LOCAL(.) Comments Last Modified By: Keisha Pride RN RN, Keisha Mcnamara RN 02/22/23 10:36:00 02/22/23 [...] By: Keisha Pride RN 02/22/23 10:39 Normal [facility] Main OR Preoperative Recordo n 02-22-2023 Main OR Preoperative Record Holding Area Document Type FTURO Summary Primary Physician: Jacqui Michael MD Finalized Date/Time: 02/22/23 10:13:17 Pt. Name: KATE HAGEN/Sex: 1950 Female Med Rec #: [id number] Physician: Jacqui Michael MD Financial #: [id number] Pt. Type: O Room/Bed: / Admit/Disch: 02/22/23 [...] Comment: chronic back pain Skin Integrity Intact, [place], Warm, & Dry Vitals - EU Blood Pressure 92/54 Pulse 69 bpm Respirations 20 br/min SPO2 99 % RN Reviewed Yes Last Modified By: Keisha Pride RN 02/22/23 10:13:16 General Comments: Temp 36.6 Finalized By: Keisha Pride RN Document Signatures Signed By: Becka Arredondo LPN 02/22/23 09:34 Keisha Pride RN 02/22/23 10:13 Normal [facility] Operative Reporton Operative Report Patient: LAVELLE HAGEN Age: 72 years Sex: Female : 1950 Associated Diagnoses: None Author: Jacqui Michael MD Procedure Operative Information Details: Date/ Time: 02/22/2023 10:33:00. Pre-Op Dx: Emphysematous cystitis (BET39-RE N30.80, Discharge, Medical), Pneumaturia (INU38-YF R39.89, Discharge, Medical), Recurrent UTI (TGK58-AS N39.0, Discharge, Medical). Post-Op Dx: Same. Anesthesia [...] -Follow-up in 1 to 2 months.. Normal [facility] Comment on above: Result Comment: Elec tronically Signed By: Jacqui Michael MD\.br\Date and Time Signed: 02/22/23 10:37 EDT Outpatient Surgery Discharge Instructionon 02-22-2023 Outpatient Surgery Discharge Instruction [address] [address] Patient Discharge Instructions PERSON INFORMATION [...] Follow up: With: Address: When: Jacqui Michael [address] [place] [address] [phone] Business (1) [address] [place], [place] [address], [address] [address] [phone] Business (1) Comments: Office to schedule follow [...] to serve you. Thank you for choosing [facility] Normal [facility] Lab Reportson 02-10-2023 Lab Reports [id number] Normal [facility] C Urineon 02-05-2023 Bacteria identified Cx Nom (U) Microbiology PROCEDURE: Urine Culture [R1] SOURCE: U CleanCatch BODY SITE: COLLECTED DATE/TIME: 02/03/2023 10:12 EDT RECEIVED DATE/TIME: 02/03/2023 19:48 EDT START DATE/TIME: 02/03/2023 19:48 EDT FREE TEXT SOURCE: Alec XIE, Jacqui Michael MD, Jacqui Nivees FINAL REPORTS Final Report [] Verified Date/Time: [...] Locations R1: This test was performed at: [facility], [address] [place] [address], [id number] , , Normal [facility] Comment on above: Performed By: #### 2 [id number] ####[place] [address] Patient Educationon 02-04-20 Patient Education Obstetrics and Gynec ology Urinary [...] these instructions at home: Medicines ? Take ohlf-tbd-dhncouq and prescription medicines only as told by [...] provider. Document Revised: 11/29/2020 Document Reviewed: 11/29/2020 Else[employer] Green Night's Sleep Patient Education ? 2022 [employer]. [facility] Screenson 02-03-2023 Screens [id number]:1 27 Normal [facility] Urology Office/Clinic Noteon 02-03-2023 Urology Office/Clinic [...] 2.7 (6.2 (more content not included)... Normal [facility] Comment on above: Result Comment: Elec tronically Signed By: Jacqui Michael MD\.br\Date and Time Signed: 02/03/23 10:45 EDT\.br\Electronically Co-Signed By: Brisa Russell\.br\Date and Time Co-Signed: 02/03/23 10:02 EDT\.br\Electronically Co-Signed By: Brisa Russell\.br\Date and Time Co-Signed: 02/03/23 10:12 EDT [place] 12-31-2022 Screens [id number]:12 7 [facility] Ambulatory Visit Summaryon 0 12-29-2022 Ambulatory Visit Summary KATE HAGEN :1950 Visit Date:12/29/2022 Ambulatory Visit Instructions Your Diagnosis UTI (urinary tract infection) Pneumaturia Adrenal mass Urinary retention Renal cyst Your Care Team Attending Physician - DANN العلي, INES Berumen Primary Care Physician - BARRY BARBER MD This Is Your Medications List [...] XIE, Jacqui Nieves Where: [facility] Juan Normal [facility] Patient Educationon 12-30-19 Patient Education Obstetrics and [...] this condition includes: ? Antibiotic medicine. ? Caec-yjt-trqoyfb medicines to treat discomfort. ? Drinking enough [...] these instructions at home: Medicines ? Take vytq-woi-ygkuemv and prescription medicines only as told by [...] Revie (more content not included)... Normal [facility] Urology Office/Clinic Noteon 12-29-2022 Urology Office/Clinic Note Chief Complaint UTI HPI Staff KML pt. Last seen in our office by KML 07/29/22 due to Adrenal Mass, Urinary Retention, and Renal Cyst. Has 6 mos f/u appt w/KMRoxie on 02/03/23. Pt is here today due to recent UTI BMP 11/24/22 *BUN 35.0 & Crea 1.83 +UACS 12/19/22 >100k Klebsiella pneumoniae Tx'd w/Cephalexin 500mg BID [id number] Pt just started taking on Wednesday. Increased urgency. Odor to urine. Increased leaking. Home Health Nurse took sample to [facility]. Pt states she had air in [...] given stability and metabolic workup wnl Ordered: [id number] Measure Post Void residual urine and/or bladder [...] Psoriatic arthrit (more content not included)... Normal [facility] Comment on above: Result Comment: Elec tronically Signed By: INES WELCH PA-C\Date and Time Signed: 12/29/22 15:25 EDT\.br\Electronically Co-Signed By: Danielle Ramirez\Date and Time Co-Signed: 12/29/22 15:05 EDT Office [...] depressive disorder PHQ2 Screen Positive; Status:Complete; Done: [id number] Overweight with body mass index (BMI) of 29 to 29.9 in adult Healthy Weight Tips; Status:Complete; Done: [id number] SocHx: Current smoker Tobacco Use Screening; Status:Complete; Done: 58Ilz7069 You need to stop smoking. Though it is not easy, more than half of all adult smokers have quit. We encourage you to write down all the reasons you should quit smoking and set a quit date for yourself. Ask us how we can help. You may also call 9-381-DMRRNOW for free resources and assistance.; Status:Complete; Done: [id number] Tobacco Use Screening; Status:Complete; Done: 27Tei9565 Patient Instructions Please bring all medicines, vitamins, [...] to continue without modifications. 2. Records from [facility] 3. Return for follow-up; in the interim, contact the office if new symptoms arise. Dr. Arriaga 4 months Chief Complaint Hospital f/u: 'doing ok' KATE HAGEN is being seen for follow-up of a hospitalization for dyspnea. Patient presents to the office in a wheelchair, utilizing oxygen and is accompanied by family member. This is initial in clinic follow-up at [facility]. She has previously been managed by [facility] since approximately 2021. Both she and [...] are requesting to establish cardiology follow-up with [facility]. October 2022 hospitalized at [facility] due to shortness of breath, seen in consultation by Dr. Jean. Echocardiogram at that time showed moderate aortic stenosis peak 46, mean 26. She was diuresed and some documentation that she was to follow-up with nephrology (not completed to date). [facility] program but is currently [...] regular basis (more content not included)... Normal [facility] Tobacco Screening.on 023 Adult depression screening [facility] [address] DO Work Phone: [phone] Adult depression screening assessment Moderate (10-14) [facility] [place] hamilton 250 DO Work Phone: Fall risk assessment a) No falls within the last year [facility] [place] hamilton 250 DO Work Phone: Tobacco use status CP a) Yes [facility]-[place]a hamilton 250 DO Work Phone: Tobacco Screening. Yes [facility] Heart-Brisaus joy 250 DO Work Phone: Tobacco Screening. 1-Several days [facility] Zeeshan hamilton 250 DO Work Phone: Tobacco Screening. 3-Nearly every day [facility]-[place] hamilton 250 DO Work Phone: Tobacco Screening. 0-Not at all [facility] Heart-Roula hamilton 250 DO Work Phone: Tobacco Screening. Somewhat Difficult [facility] Heart-[place] hamilton 250 DO Work Phone: [phone] Basic Metabolic Panelon 11-01 Anion gap [Moles/Vol] Not performed Normal 6.0-15.0 [facility] Comment on above: Performed By: #### B MP, MG, FE and TIBC, AFSANEH, CBC #### [facility] [address] [place] [id number] [place] Calcium [Mass/Vol] 9.4 mg/dL Normal 8.6-10.3 [facility] Comment on above: Performed By: #### B MP, MG, FE and TIBC, AFSANEH, CBC #### [facility] [address] [place] [id number] [place] Chloride [Moles/Vol] 92 mmol/L Low 98-107 [place] Comment on above: Performed By: #### B MP, MG, FE and TIBC, AFSANEH, CBC #### [facility] [address] [place] [address] [place] CO2 [Moles/Vol] mmol/L High 21.0-31.0 [facility] Comment on above: Performed By: #### B MP, MG, FE and TIBC, AFSANEH, CBC #### [facility] [address] [place] [address] [place] Creatinine [Mass/Vol] 1.54 mg/dL High 0.60-1.20 [facility] Comment on above: Performed By: #### B MP, MG, FE and TIBC, AFSANEH, CBC #### [facility] [address] [place] [address] [place] Creatinine Clr Calc Pharmacy 29.80 [facility] Comment on above: Result Comment: PERF ORMED BY: [place] [address] PATHOLOGIST PEDIATRIC NEUROPSYCHOLOGIST KOBE VENCES M.D. Performed By: #### B MP, MG, FE and TIBC, AFSANEH, CBC #### [facility] [address] GFR/1.73 sq M.predicted MDRD (S/P/Bld) [Vol rate/Area] 35.431 mL/min/{1.73_m2} [facility] Comment on above: Performed By: #### B MP, MG, FE and TIBC, AFSANEH, CBC #### [facility] [address] Glucose [Mass/Vol] 95 mg/dL Normal 70-100 [facility] Comment on above: Result Comment: [place] Glucose Reference Range is dependent on time and content of last meal. Glucose of more than 200 mg/dL in a nonstressed, ambulatory subject supports the diagnosis of Diabetes Mellitus. ADA recommended reference range Performed By: #### B MP, MG, FE and TIBC, AFSANEH, CBC #### [facility] [address] Potassium [Moles/Vol] 4.6 mmol/L Normal 3.5-5.1 [facility] Comment on above: Performed By: #### B MP, MG, FE and TIBC, AFSANEH, CBC #### [facility] [address] Sodium [Moles/Vol] 141 mmol/L Normal 136-145 [facility] Comment on above: Performed By: #### B MP, MG, FE and TIBC, AFSANEH, CBC #### [facility] [address] Urea nitrogen [Mass/Vol] 35 mg/dL High 7-25 [facility] Comment on above: Performed By: #### B MP, MG, FE and TIBC, AFSANEH, CBC #### [facility] [address] Basophils Auto (Bld) [#/Vol] Ordered By: Gina Poole on 11-21-2022 Basophils (Bld) [#/Vol] 0.0 10*3/uL 0.0-0.2 [facility] Basophils/100 WBC Auto (Bld) Ordered By: Gina Poole on 11-21-2022 Basophils/100 WBC (Bld) 0.3 % . [facility] Calcium [Mass/volume] in Ser um or PlasmaOrdered By: Gina Poole on 11-21-2022 Calcium [Mass/Vol] 9.4 mg/dL 8.6-10.3 [facility] Carbon dioxide, total [Moles /volume] in Serum or PlasmaOrdered By: Gina Poole on 11-21-2022 CO2 [Moles/Vol] mmol/L 21.0-31.0 [facility] Chloride [Moles/volume] in S arti or PlasmaOrdered By: Gina Poole on 11-21-2022 Chloride [Moles/Vol] 92 mmol/L 98-107 [place] Complete Blood Count Auto Di ffon 11-21-2022 Basophils (Bld) [#/Vol] 0.0 10*3/uL Normal 0.0-0.2 [facility] Comment on above: Result Comment: PERF ORMED BY: [facility] [address] [place] [address] PATHOLOGIST PEDIATRIC NEUROPSYCHOLOGIST KOBE VENCES M.D. Performed By: #### B MP, MG, FE and TIBC, AFSANEH, CBC #### [address] Basophils/100 WBC (Bld) 0.3 % Normal . [facility] Comment on above: Performed By: #### B MP, MG, FE and TIBC, AFSANEH, CBC #### [address] Eosinophils (Bld) [#/Vol] 0.2 10*3/uL Normal 0.0-0.45 [facility] Comment on above: Performed By: #### B MP, MG, FE and TIBC, AFSANEH, CBC #### [address] Eosinophils/100 WBC (Bld) 2.7 % Normal . [facility] Comment on above: Performed By: #### B MP, MG, FE and TIBC, AFSANEH, CBC #### [address] Erythrocyte distribution width (RBC) [Ratio] 15.2 % Normal 11.9-15.3 [facility] Comment on above: Performed By: #### B MP, MG, FE and TIBC, AFSANEH, CBC #### [address] Hematocrit (Bld) [Volume fraction] 24.7 % Low 34.0-46.4 [facility] Comment on above: Performed By: #### B MP, MG, FE and TIBC, AFSANEH, CBC #### [address] Hemoglobin (Bld) [Mass/Vol] 8.0 g/dL Low 11.8-15.4 [facility] Comment on above: Performed By: #### B MP, MG, FE and TIBC, AFSANEH, CBC #### [address] Lymphocytes (Bld) [#/Vol] 1.1 10*3/uL Normal 1.00-4.8 [facility] Comment on above: Performed By: #### B MP, MG, FE and TIBC, AFSANEH, CBC #### [address] Lymphocytes/100 WBC (Bld) 18.9 % Normal . [facility] Comment on above: Performed By: #### B MP, MG, FE and TIBC, AFSANEH, CBC #### [address] MCH (RBC) [Entitic mass] 29.0 pg Normal 24.7-34.3 [facility] Comment on above: Performed By: #### B MP, MG, FE and TIBC, AFSANEH, CBC #### [address] MCV (RBC) [Entitic vol] 89.8 fL Normal 80-100 [facility] Comment on above: Performed By: #### B MP, MG, FE and TIBC, AFSANEH, CBC #### [address] Mean Corpuscular HGB Conc 32.3 g/dL Normal 32.0-35.0 [facility] Comment on above: Performed By: #### B MP, MG, FE and TIBC, AFSANEH, CBC #### [address] Monocytes (Bld) [#/Vol] 0.4 10*3/uL Normal 0.0-0.8 [facility] Comment on above: Performed By: #### B MP, MG, FE and TIBC, AFSANEH, CBC #### [address] Monocytes/100 WBC (Bld) 7.3 % Normal . [facility] Comment on above: Performed By: #### B MP, MG, FE and TIBC, AFSANEH, CBC #### [address] Neutrophils (Bld) [#/Vol] 4.1 10*3/uL Normal 1.8-7.7 [facility] Comment on above: Performed By: #### B MP, MG, FE and TIBC, AFSANEH, CBC #### [address] Neutrophils/100 WBC (Bld) 70.8 % Normal . [facility] Comment on above: Performed By: #### B MP, MG, FE and TIBC, AFSANEH, CBC #### [address] NRBC% 0.1 /100{WBC} Normal 0-0.5 [facility] Comment on above: Performed By: #### B MP, MG, FE and TIBC, AFSANEH, CBC #### [address] Platelet mean volume (Bld) [Entitic vol] 7.8 fL Normal 6.3-10.7 [facility] Comment on above: Performed By: #### B MP, MG, FE and TIBC, AFSANEH, CBC #### [address] Platelets (Bld) [#/Vol] 132 10*3/uL Low 150-450 [facility] Comment on above: Performed By: #### B MP, MG, FE and TIBC, AFSANEH, CBC #### [address] RBC (Bld) [#/Vol] 2.75 10*6/uL Low 3.60-5.[address] [facility] Comment on above: Performed By: #### B MP, MG, FE and TIBC, AFSANEH, CBC #### [address] WBC (Bld) [#/Vol] 5.7 10*3/uL Normal 3.8-11.6 [facility] Comment on above: Performed By: #### B MP, MG, FE and TIBC, AFSANEH, CBC #### [address] Creatinine [Mass/volume] in Serum or PlasmaOrdered By: Gina Poole on 11-21-2022 Creatinine [Mass/Vol] 1.54 mg/dL 0.60-1.20 [facility] Eosinophils Auto (Bld) [#/Vo l]Ordered By: Gina Poole on 11-21-2022 Eosinophils (Bld) [#/Vol] 0.2 10*3/uL 0.0-0.45 [facility] Eosinophils/100 WBC Auto (Bl d)Ordered By: Gina Poole on 11-21-2022 Eosinophils/100 WBC (Bld) 2.7 % . [facility] Erythrocyte distribution wid th Auto (RBC) [Ratio]Ordered By: Gina Poole on 11-21-2022 Erythrocyte distribution width (RBC) [Ratio] 15.2 % 11.9-15.3 [facility] Glucose Glucometer (BldC) [M ass/Vol]Ordered By: Gina Poole on 11-21-2022 Glucose [Mass/Vol] 149 mg/dL [facility] Comment on above: Random Glucose Refer ence Range is dependent on time and content of last meal. Glucose of more than 200 mg/dL in a nonstressed, ambulatory subject supports the diagnosis of Diabetes Mellitus. Glucose Poct Glucometerson 0 11-21-2022 Glucose [Mass/Vol] 149 mg/dL Normal [facility] Comment on above: Result Comment: [place] Glucose Reference Range is dependent on time and content of last meal. Glucose of more than 200 mg/dL in a nonstressed, ambulatory subject supports the diagnosis of Diabetes Mellitus. PERFORMED BY: [place] [address] PATHOLOGIST PEDIATRIC NEUROPSYCHOLOGIST KOBE VENCES M.D. Performed By: #### B MP, MG, FE and TIBC, AFSANEH, CBC #### [facility] [address] [place] [address] Glucose [Mass/Vol] 118 mg/dL Normal [facility] Comment on above: Result Comment: [facility] Glucose Reference Range is dependent on time and content of last meal. Glucose of more than 200 mg/dL in a nonstressed, ambulatory subject supports the diagnosis of Diabetes Mellitus. PERFORMED BY: [place] [address] PATHOLOGIST PEDIATRIC NEUROPSYCHOLOGIST KOBE VENCES M.D. Performed By: #### B MP, MG, FE and TIBC, AFSANEH, CBC #### [facility] [address] Glucose [Mass/volume] in Ser um or PlasmaOrdered By: Gina Poole on 11-21-2022 Glucose [Mass/Vol] 95 mg/dL 70-100 [facility] Comment on above: ADA recommended refe rence rangeRandom Glucose Reference Range is dependent on time and content of last meal. Glucose of more than 200 mg/dL in a nonstressed, ambulatory subject supports the diagnosis of Diabetes Mellitus. Hematocrit Auto (Bld) [Volum e fraction]Ordered By: Gina Poole on 11-21-2022 Hematocrit (Bld) [Volume fraction] 24.7 % 34.0-46.4 [facility] Hemoglobin [Mass/volume] in BloodOrdered By: Gina Poole on 11-21-2022 Hemoglobin (Bld) [Mass/Vol] 8.0 g/dL 11.8-15.4 [facility] Leukocytes [#/volume] correc loan for nucleated erythrocytes in Blood by Automated counOrdered By: Gina Poole on 11-21-2022 WBC corrected for nucl RBC Auto (Bld) [#/Vol] 5.7 10*3/uL 3.8-11.6 [facility] Lymphocytes Auto (Bld) [#/Vo l]Ordered By: Gina Poole on 11-21-2022 Lymphocytes (Bld) [#/Vol] 1.1 10*3/uL 1.00-4.8 [facility] Lymphocytes/100 WBC Auto (Bl d)Ordered By: Gina Poole on 11-21-2022 Lymphocytes/100 WBC (Bld) 18.9 % . [facility] MCH Auto (RBC) [Entitic mass ]Ordered By: Gina Poole on 11-21-2022 MCH (RBC) [Entitic mass] 29.0 pg 24.7-34.3 [facility] MCHC Auto (RBC) [Mass/Vol]Or dered By: Gina Poole on 11-21-2022 MCHC (RBC) [Mass/Vol] 32.3 g/dL 32.0-35.0 [facility] MCV Auto (RBC) [Entitic vol] Ordered By: Gina Poole on 11-21-2022 MCV (RBC) [Entitic vol] 89.8 fL 80-100 [facility] Monocytes Auto (Bld) [#/Vol] Ordered By: Gina Poole on 11-21-2022 Monocytes (Bld) [#/Vol] 0.4 10*3/uL 0.0-0.8 [facility] Monocytes/100 WBC Auto (Bld) Ordered By: Gina Poole on 11-21-2022 Monocytes/100 WBC (Bld) 7.3 % . [facility] Neutrophils Auto (Bld) [#/Vo l]Ordered By: Gina Poole on 11-21-2022 Neutrophils (Bld) [#/Vol] 4.1 10*3/uL 1.8-7.7 [facility] Neutrophils/100 WBC Auto (Bl d)Ordered By: Gina Poole on 11-21-2022 Neutrophils/100 WBC (Bld) 70.8 % . [facility] No Panel InformationOrdered By: Gina Poole on 11-21-2022 Estimated GFR (CKD-EPI) 35.431 mL/Min [facility] Creatinine Clearance (Chem 29.80 [facility] Nucleated erythrocytes [Pres ence] in Blood by Automated countOrdered By: Gina Poole on 11-21-2022 Nucleated RBC Auto Ql (Bld) 0.1 /100{WBC} 0-0.5 [facility] Platelet mean volume Auto (B ld) [Entitic vol]Ordered By: Gina Poole on 11-21-2022 Platelet mean volume (Bld) [Entitic vol] 7.8 fL 6.3-10.7 [facility] Platelets Auto (Bld) [#/Vol] Ordered By: Gina Poole on 11-21-2022 Platelets (Bld) [#/Vol] 132 10*3/uL 150-450 [facility] Potassium [Moles/volume] in Serum or PlasmaOrdered By: Gina Poole on 11-21-2022 Potassium [Moles/Vol] 4.6 mmol/L 3.5-5.1 [facility] RBC Auto (Bld) [#/Vol]Ordere d By: Gina Poole on 11-21-2022 RBC (Bld) [#/Vol] 2.75 10*6/uL 3.60-5.[address] [facility] Serum or plasma anion gap de terminationOrdered By: Gina Poole on 11-21-2022 Anion gap [Moles/Vol] TNP [facility] Comment on above: Test not performed Sodium [Moles/volume] in Ser um or PlasmaOrdered By: Gina Poole on 11-21-2022 Sodium [Moles/Vol] 141 mmol/L 136-145 [facility] Urea nitrogen [Mass/volume] in Serum or PlasmaOrdered By: Gina Poole on 11-21-2022 Urea nitrogen [Mass/Vol] 35 mg/dL 7-25 [facility] WBC Auto (Bld) [#/Vol]Ordere d By: Gina Poole on 11-21-2022 WBC (Bld) [#/Vol] 5.7 10*3/uL 3.8-11.6 [facility] XR chest 2V*on 11-21-2022 XR chest 2V* [facility] [place] [address] XRay Report Signed Patient: Kate Hagen MR#: [id number] 52 : 1950 Acct:[id number] Age/Sex: 71 / F ADM Date: 11/18/22 Loc: Room: [address] [place] [address] Type: ADM IN Attending Dr: Gina Poole DO Copies to: DO Jose Pisano MD Ordering Provider: Jose Arriaga MD Date of Service: 11/21/22 XR/XR [...] Candace Godfrey M.D.11/21/2022 9:26 AM Dictation Location: [place] [address] Transcribed By: ELIANA 11/21/22925 Dictated By: Candace Godfrey II, MD 11/21/22923 Signed By: 11/21/22925 [facility] Basic Metabolic Panelon 11-01 Anion gap [Moles/Vol] 7.5 mmol/L Normal 6.0-15.0 [facility] Comment on above: Performed By: #### C BC, BMP #### [facility] [address] Calcium [Mass/Vol] 8.7 mg/dL Normal 8.6-10.3 [facility] Comment on above: Performed By: #### C BC, BMP #### [facility] [address] [place] [id number] [place] Chloride [Moles/Vol] 99 mmol/L Normal 98-107 [place] Comment on above: Performed By: #### C BC, BMP #### [facility] [address] [place] [address] [place] CO2 [Moles/Vol] 42.2 mmol/L High 21.0-31.0 [facility] Comment on above: Performed By: #### C BC, BMP #### [facility] [address] [place] [address] [place] Creatinine [Mass/Vol] 1.73 mg/dL High 0.60-1.20 [facility] Comment on above: Performed By: #### C BC, BMP #### [facility] [address] [place] [id number] [place] Creatinine Clr Calc Pharmacy 26.49 [facility] [place] Comment on above: Result Comment: PERF ORMED BY: [place] [address] PATHOLOGIST PEDIATRIC NEUROPSYCHOLOGIST KOBE VENCES M.D. Performed By: #### C BC, BMP #### [place] [address] [place] GFR/1.73 sq M.predicted MDRD (S/P/Bld) [Vol rate/Area] 30.815 mL/min/{1.73_m2} Normal [facility] Comment on above: Performed By: #### C BETTYE, BMP #### [address] Glucose [Mass/Vol] 104 mg/dL High 70-100 [facility] Comment on above: Result Comment: [place] Glucose Reference Range is dependent on time and content of last meal. Glucose of more than 200 mg/dL in a nonstressed, ambulatory subject supports the diagnosis of Diabetes Mellitus. ADA recommended reference range Performed By: #### C BETTYE, BMP #### [address] Potassium [Moles/Vol] 4.7 mmol/L Normal 3.5-5.1 [facility] Comment on above: Performed By: #### C BETTYE, BMP #### [address] Sodium [Moles/Vol] 144 mmol/L Normal 136-145 [facility] Comment on above: Performed By: #### C BETTYE, BMP #### [place] [address] [place] Urea nitrogen [Mass/Vol] 33 mg/dL High 7-25 [facility] Comment on above: Performed By: #### C BETTYE, BMP #### [address] Complete Blood Count Auto Di ffon 11-20-2022 Basophils (Bld) [#/Vol] 0.0 10*3/uL Normal 0.0-0.2 [facility] Comment on above: Result Comment: PERF ORMED BY: [place] [address] PATHOLOGIST PEDIATRIC NEUROPSYCHOLOGIST KOBE VENCES M.D. Performed By: #### C BC, BMP #### [address] Basophils/100 WBC (Bld) 0.4 % Normal . [facility] Comment on above: Performed By: #### C BC, BMP #### [place] [address] [place] Eosinophils (Bld) [#/Vol] 0.1 10*3/uL Normal 0.0-0.45 [facility] Comment on above: Performed By: #### C BC, BMP #### [address] Eosinophils/100 WBC (Bld) 2.1 % Normal . [facility] Comment on above: Performed By: #### C BC, BMP #### [address] Erythrocyte distribution width (RBC) [Ratio] 15.6 % High 11.9-15.3 [facility] Comment on above: Performed By: #### C BC, BMP #### [address] Hematocrit (Bld) [Volume fraction] 24.9 % Low 34.0-46.4 [facility] Comment on above: Performed By: #### C BC, BMP #### [place] [address] [place] Hemoglobin (Bld) [Mass/Vol] 8.0 g/dL Low 11.8-15.4 [facility] Comment on above: Performed By: #### C BC, BMP #### [place] [address] [place] Lymphocytes (Bld) [#/Vol] 1.2 10*3/uL Normal 1.00-4.8 [facility] Comment on above: Performed By: #### C BC, BMP #### [place] [address] [place] Lymphocytes/100 WBC (Bld) 22.4 % Normal . [facility] Comment on above: Performed By: #### C BC, BMP #### [facility] [address] MCH (RBC) [Entitic mass] 28.9 pg Normal 24.7-34.3 [facility] Comment on above: Performed By: #### C BC, BMP #### [facility] [address] MCV (RBC) [Entitic vol] 90.0 fL Normal 80-100 [facility] Comment on above: Performed By: #### C BC, BMP #### [facility] [address] Mean Corpuscular HGB Conc 32.1 g/dL Normal 32.0-35.0 [facility] Comment on above: Performed By: #### C BC, BMP #### [address] Monocytes (Bld) [#/Vol] 0.4 10*3/uL Normal 0.0-0.8 [facility] Comment on above: Performed By: #### C BC, BMP #### [address] Monocytes/100 WBC (Bld) 6.7 % Normal . [facility] Comment on above: Performed By: #### C BC, BMP #### [address] Neutrophils (Bld) [#/Vol] 3.7 10*3/uL Normal 1.8-7.7 [facility] Comment on above: Performed By: #### C BC, BMP #### [address] Neutrophils/100 WBC (Bld) 68.4 % Normal . [facility] Comment on above: Performed By: #### C BC, BMP #### [address] NRBC% 0.1 /100{WBC} Normal 0-0.5 [facility] Comment on above: Performed By: #### C BC, BMP #### [facility] [address] [place] [address] [place] Platelet mean volume (Bld) [Entitic vol] 7.9 fL Normal 6.3-10.7 [facility] Comment on above: Performed By: #### C BC, BMP #### [facility] [address] [place] [address] [place] Platelets (Bld) [#/Vol] 133 10*3/uL Low 150-450 [facility] Comment on above: Performed By: #### C BC, BMP #### [facility] [address] RBC (Bld) [#/Vol] 2.77 10*6/uL Low 3.60-5.[address] [facility] Comment on above: Performed By: #### C BC, BMP #### [facility] [address] WBC (Bld) [#/Vol] 5.4 10*3/uL Normal 3.8-11.6 [facility] Comment on above: Performed By: #### C BETTYE, BMP #### [facility] [address] Glucose Poct Glucometerson 0 11-20-2022 Glucose [Mass/Vol] 135 mg/dL Normal [facility] Comment on above: Result Comment: [place] Glucose Reference Range is dependent on time and content of last meal. Glucose of more than 200 mg/dL in a nonstressed, ambulatory subject supports the diagnosis of Diabetes Mellitus. PERFORMED BY: [place] [address] PATHOLOGIST PEDIATRIC NEUROPSYCHOLOGIST KOBE VENCES M.D. Performed By: #### G TASHA #### Point of Care testing , Glucose [Mass/Vol] 123 mg/dL Normal [facility] Comment on above: Result Comment: [place] Glucose Reference Range is dependent on time and content of last meal. Glucose of more than 200 mg/dL in a nonstressed, ambulatory subject supports the diagnosis of Diabetes Mellitus. PERFORMED BY: [place] [address] PATHOLOGIST PEDIATRIC NEUROPSYCHOLOGIST KOBE VENCES M.D. Performed By: #### B MP, MG, FE and TIBC, AFSANEH, CBC #### [address] Glucose [Mass/Vol] 116 mg/dL Normal [facility] Comment on above: Result Comment: [facility] Glucose Reference Range is dependent on time and content of last meal. Glucose of more than 200 mg/dL in a nonstressed, ambulatory subject supports the diagnosis of Diabetes Mellitus. PERFORMED BY: [place] [address] PATHOLOGIST PEDIATRIC NEUROPSYCHOLOGIST KOBE VENCES M.D. Performed By: #### G LULS #### Point of Care testing , Glucose [Mass/Vol] 130 mg/dL Normal [facility] Comment on above: Result Comment: [facility] Glucose Reference Range is dependent on time and content of last meal. Glucose of more than 200 mg/dL in a nonstressed, ambulatory subject supports the diagnosis of Diabetes Mellitus. PERFORMED BY: [place] [address] PATHOLOGIST PEDIATRIC NEUROPSYCHOLOGIST KOBE VENCES M.D. Performed By: #### B MP, MG, FE and TIBC, AFSANEH, CBC #### [address] Basic Metabolic Panelon 07-2 Anion gap [Moles/Vol] 9.8 mmol/L Normal 6.0-15.0 [facility] Comment on above: Performed By: #### B MP, MG, FE and TIBC, AFSANEH, CBC #### [place] [address] [place] Calcium [Mass/Vol] 8.1 mg/dL Low 8.6-10.3 [facility] Comment on above: Performed By: #### B MP, MG, FE and TIBC, AFSANEH, CBC #### [place] [address] [place] Chloride [Moles/Vol] 101 mmol/L Normal 98-107 [place] Comment on above: Performed By: #### B MP, MG, FE and TIBC, AFSANEH, CBC #### [facility] [address] CO2 [Moles/Vol] 38.1 mmol/L High 21.0-31.0 [facility] Comment on above: Performed By: #### B MP, MG, FE and TIBC, AFSANEH, CBC #### [address] Creatinine [Mass/Vol] 1.76 mg/dL High 0.60-1.20 [facility] Comment on above: Performed By: #### B MP, MG, FE and TIBC, AFSANEH, CBC #### [address] Creatinine Clr Calc Pharmacy 25.90 [facility] Comment on above: Performed By: #### B MP, MG, FE and TIBC, AFSANEH, CBC #### [place] [address] [place] GFR/1.73 sq M.predicted MDRD (S/P/Bld) [Vol rate/Area] 30.185 mL/min/{1.73_m2} [facility] Comment on above: Performed By: #### B MP, MG, FE and TIBC, AFSANEH, CBC #### [address] Glucose [Mass/Vol] 100 mg/dL Normal 70-100 [facility] Comment on above: Result Comment: [place] Glucose Reference Range is dependent on time and content of last meal. Glucose of more than 200 mg/dL in a nonstressed, ambulatory subject supports the diagnosis of Diabetes Mellitus. ADA recommended reference range Performed By: #### B MP, MG, FE and TIBC, AFSANEH, CBC #### [address] Potassium [Moles/Vol] 4.9 mmol/L Normal 3.5-5.1 [facility] Comment on above: Performed By: #### B MP, MG, FE and TIBC, AFSANEH, CBC #### [address] Sodium [Moles/Vol] 144 mmol/L Normal 136-145 [facility] Comment on above: Performed By: #### B MP, MG, FE and TIBC, AFSANEH, CBC #### [address] Urea nitrogen [Mass/Vol] 28 mg/dL High 7-25 [facility] Comment on above: Performed By: #### B MP, MG, FE and TIBC, AFSANEH, CBC #### [address] Complete Blood Count Auto Di ffon 11-19-2022 Basophils (Bld) [#/Vol] 0.0 10*3/uL Normal 0.0-0.2 [facility] Comment on above: Result Comment: PERF ORMED BY: [place] [address] PATHOLOGIST PEDIATRIC NEUROPSYCHOLOGIST KOBE VENCES M.D. Performed By: #### B MP, MG, FE and TIBC, AFSANEH, CBC #### [address] Basophils/100 WBC (Bld) 0.7 % Normal . [facility] Comment on above: Performed By: #### B MP, MG, FE and TIBC, AFSANEH, CBC #### [address] Eosinophils (Bld) [#/Vol] 0.1 10*3/uL Normal 0.0-0.45 [facility] Comment on above: Performed By: #### B MP, MG, FE and TIBC, AFSANEH, CBC #### [address] Eosinophils/100 WBC (Bld) 2.0 % Normal . [facility] Comment on above: Performed By: #### B MP, MG, FE and TIBC, AFSANEH, CBC #### [place] [address] Erythrocyte distribution width (RBC) [Ratio] 15.5 % High 11.9-15.3 [facility] Comment on above: Performed By: #### B MP, MG, FE and TIBC, AFSANEH, CBC #### [address] Hematocrit (Bld) [Volume fraction] 26.7 % Low 34.0-46.4 [facility] Comment on above: Performed By: #### B MP, MG, FE and TIBC, AFSANEH, CBC #### [address] Hemoglobin (Bld) [Mass/Vol] 8.5 g/dL Low 11.8-15.4 [facility] Comment on above: Performed By: #### B MP, MG, FE and TIBC, AFSANEH, CBC #### [address] Lymphocytes (Bld) [#/Vol] 1.6 10*3/uL Normal 1.00-4.8 [facility] Comment on above: Performed By: #### B MP, MG, FE and TIBC, AFSANEH, CBC #### [address] Lymphocytes/100 WBC (Bld) 25.1 % Normal . [facility] Comment on above: Performed By: #### B MP, MG, FE and TIBC, AFSANEH, CBC #### [address] MCH (RBC) [Entitic mass] 29.0 pg Normal 24.7-34.3 [facility] Comment on above: Performed By: #### B MP, MG, FE and TIBC, AFSANEH, CBC #### [address] MCV (RBC) [Entitic vol] 91.3 fL Normal 80-100 [facility] Comment on above: Performed By: #### B MP, MG, FE and TIBC, AFSANEH, CBC #### [address] Mean Corpuscular HGB Conc 31.8 g/dL Low 32.0-35.0 [facility] Comment on above: Performed By: #### B MP, MG, FE and TIBC, AFSANEH, CBC #### [facility] [address] Monocytes (Bld) [#/Vol] 0.4 10*3/uL Normal 0.0-0.8 [facility] Comment on above: Performed By: #### B MP, MG, FE and TIBC, AFSANEH, CBC #### [address] Monocytes/100 WBC (Bld) 6.6 % Normal . [facility] Comment on above: Performed By: #### B MP, MG, FE and TIBC, AFSANEH, CBC #### [address] Neutrophils (Bld) [#/Vol] 4.1 10*3/uL Normal 1.8-7.7 [facility] Comment on above: Performed By: #### B MP, MG, FE and TIBC, AFSANEH, CBC #### [address] Neutrophils/100 WBC (Bld) 65.6 % Normal . [facility] Comment on above: Performed By: #### B MP, MG, FE and TIBC, AFSANEH, CBC #### [address] NRBC% 0.1 /100{WBC} Normal 0-0.5 [facility] Comment on above: Performed By: #### B MP, MG, FE and TIBC, AFSANEH, CBC #### [address] Platelet mean volume (Bld) [Entitic vol] 7.6 fL Normal 6.3-10.7 [facility] Comment on above: Performed By: #### B MP, MG, FE and TIBC, AFSANEH, CBC #### [address] Platelets (Bld) [#/Vol] 140 10*3/uL Low 150-450 [facility] Comment on above: Performed By: #### B MP, MG, FE and TIBC, AFSANEH, CBC #### [facility] [address] [place] [address] RBC (Bld) [#/Vol] 2.93 10*6/uL Low 3.60-5.[address] [facility] Comment on above: Performed By: #### B MP, MG, FE and TIBC, AFSANEH, CBC #### [facility] [address] WBC (Bld) [#/Vol] 6.2 10*3/uL Normal 3.8-11.6 [facility] Comment on above: Performed By: #### B MP, MG, FE and TIBC, AFSANEH, CBC #### [facility] [address] [place] [address] Creatine Kinaseon 11-19-2022 CK [Catalytic activity/Vol] 31 U/L Normal 30- [facility] Comment on above: Order Comment: ultra sound come back in 10 mins Performed By: #### B MP, MG, FE and TIBC, AFSANEH, CBC #### [facility] [address] [place] [address] CK [Catalytic activity/Vol] 35 U/L Normal - [facility] Comment on above: Performed By: #### B MP, MG, FE and TIBC, AFSANEH, CBC #### [facility] [address] [place] [address] Creatine kinase [Enzymatic a ctivity/volume] in Serum or PlasmaOrdered By: Gina Poole on 11-19-2022 CK [Catalytic activity/Vol] 31 U/L 30-223 [facility] ECH echo transthoracicon ECH echo transthoracic [facility] [place] [address] [place] [address] Echocardiogram Signed Patient: aKte Hagen MR#: [id number] 52 : 1950 Acct:[id number] Age/Sex: 71 / F ADM Date: 11/18/22 Loc: 4P Room: 9T2876-3 Type: ADM IN Attending Dr: Gina Poole DO Ordering Provider: Gina Poole DO Date of Service: 11/18/22 ECH/ECH echo transthoracic: Shortness of Breath/Dyspnea Copies to: Colin Carrillo MD, [facility] Gina Poole DO Height: 60 in Weight: [...] 1.5 cm2 (more content not included)... Normal [facility] Ferritinon 11-19-2022 Ferritin [Mass/Vol] 388.8 ng/mL High 11.0-306.8 [place] Comment on above: Result Comment: PERF ORMED BY: [facility] [address] [place] [address] PATHOLOGIST PEDIATRIC NEUROPSYCHOLOGIST KOBE VENCES M.D. Performed By: #### B MP, MG, FE and TIBC, AFSANEH, CBC #### [facility] [address] Ferritin [Mass/volume] in Se rum or PlasmaOrdered By: Gina Poole on 11-19-2022 Ferritin [Mass/Vol] 388.8 ng/mL 11.0-306.8 [place] Glucose Poct Glucometerson 0 11-19-2022 Glucose [Mass/Vol] 140 mg/dL Normal [facility] Comment on above: Result Comment: [place] Glucose Reference Range is dependent on time and content of last meal. Glucose of more than 200 mg/dL in a nonstressed, ambulatory subject supports the diagnosis of Diabetes Mellitus. PERFORMED BY: [place] [address] PATHOLOGIST PEDIATRIC NEUROPSYCHOLOGIST KOBE VENCES M.D. Performed By: #### B MP, MG, FE and TIBC, AFSANEH, CBC #### [address] Commemt1 Glu2: Cleaned Meter Normal [facility] Comment on above: Result Comment: PERF ORMED BY: [place] [address] PATHOLOGIST PEDIATRIC NEUROPSYCHOLOGIST KOBE VENCES M.D. Performed By: #### B MP, MG, FE and TIBC, AFSANEH, CBC #### [facility] [address] [place] [address] Glucose [Mass/Vol] 168 mg/dL Normal [facility] Comment on above: Result Comment: [facility] Glucose Reference Range is dependent on time and content of last meal. Glucose of more than 200 mg/dL in a nonstressed, ambulatory subject supports the diagnosis of Diabetes Mellitus. Performed By: #### B MP, MG, FE and TIBC, AFSANEH, CBC #### [facility] [address] Iron [Mass/volume] in Serum or PlasmaOrdered By: Gina Poole on 11-19-2022 Iron [Mass/Vol] 28 ug/dL 50-212 [facility] Iron and TIBC Profileon 11-01 % Iron Saturation 11.8 % Low 20-50 [facility] Comment on above: Performed By: #### B MP, MG, FE and TIBC, AFSANEH, CBC #### [facility] [address] [place] [id number] [facility] Iron [Mass/Vol] 28 ug/dL Low 50-212 [facility] Comment on above: Performed By: #### B MP, MG, FE and TIBC, AFSANEH, CBC #### [facility] [address] [place] [id number] [facility] Total Iron Binding Capacity 238 ug/dL Low 255-450 [facility] Comment on above: Performed By: #### B MP, MG, FE and TIBC, AFSANEH, CBC #### [facility] [address] Transferrin [Mass/Vol] 170 mg/dL Low 203-362 [facility] Comment on above: Performed By: #### B MP, MG, FE and TIBC, AFSANEH, CBC #### [facility] [address] Iron binding capacity [Mass/ volume] in Serum or PlasmaOrdered By: Gina Poole on 11-19-2022 Iron binding capacity [Mass/Vol] 238 ug/dL 255-450 [facility] Iron saturation [Mass Fracti on] in Serum or PlasmaOrdered By: Gina Poole on 11-19-2022 Iron saturation [Mass fraction] 11.8 % 20-50 [facility] Magnesiumon 11-19-2022 Magnesium [Mass/Vol] 1.5 mg/dL Low 1.9-2.7 [place] Comment on above: Performed By: #### B MP, MG, FE and TIBC, AFSANEH, CBC #### [facility] [address] [place] [id number] [facility] Magnesium [Mass/volume] in S arti or PlasmaOrdered By: Gina Poole on 11-19-2022 Magnesium [Mass/Vol] 1.5 mg/dL 1.9-2.7 [place] No Panel InformationOrdered By: Gina Poole on 11-19-2022 Bedside Glucose Comment Glu2: cleaned meter [facility] Transferrin [Mass/volume] in Serum or PlasmaOrdered By: Gina Poole on 07-20-2023 Transferrin [Mass/Vol] 170 mg/dL 203-362 [facility] Troponin I High Sensitivityo n 11-19-2022 Troponin I High Sensitivity 19.6 pg/mL High 0.0-15.0 [facility] Comment on above: Order Comment: ultra sound come back in 10 mins Result Comment: PERF ORMED BY: [place] [address] PATHOLOGIST PEDIATRIC NEUROPSYCHOLOGIST KOBE VENCES M.D. Performed By: #### B MP, MG, FE and TIBC, AFSANEH, CBC #### [address] Troponin I High Sensitivity 17.3 pg/mL High 0.0-15.0 [facility] Comment on above: Result Comment: PERF ORMED BY: [place] [address] PATHOLOGIST PEDIATRIC NEUROPSYCHOLOGIST KOBE VENCES M.D. Performed By: #### B MP, MG, FE and TIBC, AFSANEH, CBC #### [facility] [address] [place] [address] Troponin I.cardiac [Mass/vol ume] in Serum or Plasma by Detection limit <= 0.01 ng/Ordered By: Gina Poole on 11-19-2022 Troponin I.cardiac DL <= 0.01 ng/mL [Mass/Vol] 19.6 pg/mL 0.0-15.0 [facility] Activated partial thrombopla stin time (aPTT) in platelet poor plasma by coagulation aOrdered By: Venkatesh Trammell on 11-18-2022 aPTT Coag (PPP) [Time] 35.1 s 25.1-36.5 [facility] Alanine aminotransferase [En zymatic activity/volume] in Serum or PlasmaOrdered By: Venkatesh Trammell on 11-18-2022 ALT [Catalytic activity/Vol] 10 U/L 7- [facility] Albumin [Mass/volume] in Ser um or Plasma by Bromocresol green (BCG) dye binding methoOrdered By: Venkatesh Trammell on 11-18-2022 Albumin BCG dye [Mass/Vol] 3.4 g/dL 3.5-5.7 [facility] Alkaline phosphatase [Enzyma tic activity/volume] in Serum or PlasmaOrdered By: Venkatesh Trammell on 11-18-2022 ALP [Catalytic activity/Vol] 54 U/L 34-104 [facility] Aspartate aminotransferase [ Enzymatic activity/volume] in Serum or PlasmaOrdered By: Venkatesh Trammell on 11-18-2022 AST [Catalytic activity/Vol] 15 U/L 13-39 [facility] B-Type Natriuretic Peptideon 11-18-2022 Natriuretic peptide B (Bld) [Mass/Vol] 2080.0 pg/mL High 5-100 [facility] Comment on above: Result Comment: PERF ORMED BY: [place] [address] PATHOLOGIST PEDIATRIC NEUROPSYCHOLOGIST KOBE VENCES M.D. Performed By: #### B MP, MG, FE and TIBC, AFSANEH, CBC #### [address] Basic Metabolic Panelon 10-31 Anion gap [Moles/Vol] 10.0 mmol/L Normal 6.0-15.0 [facility] Comment on above: Performed By: #### B MP, MG, FE and TIBC, AFSANEH, CBC #### [address] Calcium [Mass/Vol] 8.1 mg/dL Low 8.6-10.3 [facility] Comment on above: Performed By: #### B MP, MG, FE and TIBC, AFSANEH, CBC #### [address] Chloride [Moles/Vol] 101 mmol/L Normal 98-107 [place] Comment on above: Performed By: #### B MP, MG, FE and TIBC, AFSANEH, CBC #### [address] CO2 [Moles/Vol] 36.2 mmol/L High 21.0-31.0 [facility] Comment on above: Performed By: #### B MP, MG, FE and TIBC, AFSANEH, CBC #### [facility] [address] Creatinine [Mass/Vol] 1.78 mg/dL High 0.60-1.20 [facility] Comment on above: Performed By: #### B MP, MG, FE and TIBC, AFSANEH, CBC #### [facility] [address] [place] [address] [place] Creatinine Clr Calc Pharmacy 25.51 [facility] Comment on above: Result Comment: PERF ORMED BY: [place] [address] PATHOLOGIST PEDIATRIC NEUROPSYCHOLOGIST KOBE VENCES M.D. Performed By: #### B MP, MG, FE and TIBC, AFSANEH, CBC #### [address] GFR/1.73 sq M.predicted MDRD (S/P/Bld) [Vol rate/Area] 29.779 mL/min/{1.73_m2} [facility] Comment on above: Performed By: #### B MP, MG, FE and TIBC, AFSANEH, CBC #### [address] Glucose [Mass/Vol] 101 mg/dL High 70-100 [facility] Comment on above: Result Comment: [place] Glucose Reference Range is dependent on time and content of last meal. Glucose of more than 200 mg/dL in a nonstressed, ambulatory subject supports the diagnosis of Diabetes Mellitus. ADA recommended reference range Performed By: #### B MP, MG, FE and TIBC, AFSANEH, CBC #### [facility] [address] Potassium [Moles/Vol] 5.2 mmol/L High 3.5-5.1 [facility] Comment on above: Performed By: #### B MP, MG, FE and TIBC, AFSANEH, CBC #### [facility] [address] Sodium [Moles/Vol] 142 mmol/L Normal 136-145 [facility] Comment on above: Performed By: #### B MP, MG, FE and TIBC, AFSANEH, CBC #### [facility] [address] Urea nitrogen [Mass/Vol] 29 mg/dL High 7-25 [facility] Comment on above: Performed By: #### B MP, MG, FE and TIBC, AFSANEH, CBC #### [facility] [address] Basophils Auto (Bld) [#/Vol] Ordered By: Venkatesh Trammell on 11-18-2022 Basophils (Bld) [#/Vol] 0.0 10*3/uL 0.0-0.2 [facility] Basophils/100 WBC Auto (Bld) Ordered By: Venkatesh Trammell on 11-18-2022 Basophils/100 WBC (Bld) 0.7 % . [facility] Bilirubin.direct [Mass/volum e] in Serum or PlasmaOrdered By: Venkatesh Trammell on 11-18-2022 Bilirubin.direct [Mass/Vol] 0.10 mg/dL 0.03-0.18 [facility] Bilirubin.total [Mass/volume ] in Serum or PlasmaOrdered By: Venkatesh Trammell on 11-18-2022 Bilirubin [Mass/Vol] 0.4 mg/dL 0.3-1.0 [place] Calcium [Mass/volume] in Ser um or PlasmaOrdered By: Venkatesh Trammell on 11-18-2022 Calcium [Mass/Vol] 8.1 mg/dL 8.6-10.3 [facility] Carbon dioxide, total [Moles /volume] in Serum or PlasmaOrdered By: Venkatesh Trammell on 11-18-2022 CO2 [Moles/Vol] 36.2 mmol/L 21.0-31.0 [facility] Chloride [Moles/volume] in S arti or PlasmaOrdered By: Venkatesh Trammell on 11-18-2022 Chloride [Moles/Vol] 101 mmol/L 98-107 [place] Complete Blood Count Auto Di ffon 11-18-2022 Basophils (Bld) [#/Vol] 0.0 10*3/uL Normal 0.0-0.2 [facility] Comment on above: Result Comment: PERF ORMED BY: [place] [address] PATHOLOGIST PEDIATRIC NEUROPSYCHOLOGIST KOBE VENCES M.D. Performed By: #### B MP, MG, FE and TIBC, AFSANEH, CBC #### [address] Basophils/100 WBC (Bld) 0.7 % Normal . [facility] Comment on above: Performed By: #### B MP, MG, FE and TIBC, AFSANEH, CBC #### [address] Eosinophils (Bld) [#/Vol] 0.1 10*3/uL Normal 0.0-0.45 [facility] Comment on above: Performed By: #### B MP, MG, FE and TIBC, AFSANEH, CBC #### [address] Eosinophils/100 WBC (Bld) 1.7 % Normal . [facility] Comment on above: Performed By: #### B MP, MG, FE and TIBC, AFSANEH, CBC #### [address] Erythrocyte distribution width (RBC) [Ratio] 15.2 % Normal 11.9-15.3 [facility] Comment on above: Performed By: #### B MP, MG, FE and TIBC, AFSANEH, CBC #### [address] Hematocrit (Bld) [Volume fraction] 26.8 % Low 34.0-46.4 [facility] Comment on above: Performed By: #### B MP, MG, FE and TIBC, AFSANEH, CBC #### [address] [address] Hemoglobin (Bld) [Mass/Vol] 8.7 g/dL Low 11.8-15.4 [facility] Comment on above: Performed By: #### B MP, MG, FE and TIBC, AFSANEH, CBC #### [address] Lymphocytes (Bld) [#/Vol] 1.5 10*3/uL Normal 1.00-4.8 [facility] Comment on above: Performed By: #### B MP, MG, FE and TIBC, AFSANEH, CBC #### [address] Lymphocytes/100 WBC (Bld) 22.5 % Normal . [facility] Comment on above: Performed By: #### B MP, MG, FE and TIBC, AFSANEH, CBC #### [address] MCH (RBC) [Entitic mass] 29.1 pg Normal 24.7-34.3 [facility] Comment on above: Performed By: #### B MP, MG, FE and TIBC, AFSANEH, CBC #### [address] MCV (RBC) [Entitic vol] 89.8 fL Normal 80-100 [facility] Comment on above: Performed By: #### B MP, MG, FE and TIBC, AFSANEH, CBC #### [address] Mean Corpuscular HGB Conc 32.4 g/dL Normal 32.0-35.0 [facility] Comment on above: Performed By: #### B MP, MG, FE and TIBC, AFSANEH, CBC #### [address] Monocytes (Bld) [#/Vol] 0.4 10*3/uL Normal 0.0-0.8 [facility] Comment on above: Performed By: #### B MP, MG, FE and TIBC, AFSAENH, CBC #### [address] Monocytes/100 WBC (Bld) 16.05 % Normal 0.00-20.00 [facility] Comment on above: Performed By: #### B MP, MG, FE and TIBC, AFSANEH, CBC #### [address] Monocytes/100 WBC (Bld) 5.7 % Normal . [facility] Comment on above: Performed By: #### B MP, MG, FE and TIBC, AFSANEH, CBC #### [address] Neutrophils (Bld) [#/Vol] 4.7 10*3/uL Normal 1.8-7.7 [facility] Comment on above: Performed By: #### B MP, MG, FE and TIBC, AFSANEH, CBC #### [address] Neutrophils/100 WBC (Bld) 69.4 % Normal . [facility] Comment on above: Performed By: #### B MP, MG, FE and TIBC, AFSANEH, CBC #### [address] NRBC% 0.0 /100{WBC} Normal 0-0.5 [facility] Comment on above: Performed By: #### B MP, MG, FE and TIBC, AFSANEH, CBC #### [address] Platelet mean volume (Bld) [Entitic vol] 8.2 fL Normal 6.3-10.7 [facility] Comment on above: Performed By: #### B MP, MG, FE and TIBC, AFSANEH, CBC #### [place] [address] [place] Platelets (Bld) [#/Vol] 169 10*3/uL Normal 150-450 [facility] Comment on above: Performed By: #### B MP, MG, FE and TIBC, AFSANEH, CBC #### [place] [address] [place] RBC (Bld) [#/Vol] 2.98 10*6/uL Low 3.60-5.[address] [facility] Comment on above: Performed By: #### B MP, MG, FE and TIBC, AFSANEH, CBC #### [place] [id number] [place] WBC (Bld) [#/Vol] 6.8 10*3/uL Normal 3.8-11.6 [facility] Comment on above: Performed By: #### B MP, MG, FE and TIBC, AFSANEH, CBC #### [facility] [address] [place] [id number] [place] Creatine Kinaseon 11-18-2022 CK [Catalytic activity/Vol] 44 U/L Normal [facility] Comment on above: Performed By: #### B MP, MG, FE and TIBC, AFSANEH, CBC #### [facility] [address] CK [Catalytic activity/Vol] 46 U/L Normal [facility] Comment on above: Performed By: #### B MP, MG, FE and TIBC, AFSANEH, CBC #### [address] Creatine kinase [Enzymatic a ctivity/volume] in Serum or PlasmaOrdered By: Gina Poole on 11-18-2022 CK [Catalytic activity/Vol] 44 U/L [facility] Creatinine [Mass/volume] in Serum or PlasmaOrdered By: Venkatesh Trammell on 11-18-2022 Creatinine [Mass/Vol] 1.78 mg/dL 0.60-1.20 [facility] ECG 12 lead ECGon 11-18-2022 ECG 12 lead ECG [facility] [place] [address] [place] [address] Electrocardiograph Report Signed Patient: Kate Hagen MR#: [id number] 52 : 1950 Acct:[id number] Age/Sex: 71 / F ADM Date: 11/18/22 Loc: Room: [address] [place] [address] Type: ADM IN Attending Dr: Gina Poole [...] ECGs available Confirmed by Venkatesh Trammell DO ([id number]) on 11/19/2022 12:36:06 AM Referred By: Electronically Signed By:Venkatesh Trammell DO Transcribed By: MUS Signed By Venkatesh Trammell DO 3 0036 Normal [facility] Eosinophils Auto (Bld) [#/Vo l]Ordered By: Venkatesh Trammell on 11-18-2022 Eosinophils (Bld) [#/Vol] 0.1 10*3/uL 0.0-0.45 [facility] Eosinophils/100 WBC Auto (Bl d)Ordered By: Venkatesh Trammell on 11-18-2022 Eosinophils/100 WBC (Bld) 1.7 % . [facility] Erythrocyte distribution wid th Auto (RBC) [Ratio]Ordered By: Venkatesh Trammell on 11-18-2022 Erythrocyte distribution width (RBC) [Ratio] 15.2 % 11.9-15.3 [facility] Globulin Calc (S) [Mass/Vol] Ordered By: Venkatesh Trammell on 11-18-2022 Globulin (S) [Mass/Vol] 3.2 g/dL [facility] Glucose [Mass/volume] in Ser um or PlasmaOrdered By: Venkatesh Trammell on 11-18-2022 Glucose [Mass/Vol] 101 mg/dL 70-100 [facility] Comment on above: ADA recommended refe rence rangeRandom Glucose Reference Range is dependent on time and content of last meal. Glucose of more than 200 mg/dL in a nonstressed, ambulatory subject supports the diagnosis of Diabetes Mellitus. Hematocrit Auto (Bld) [Volum e fraction]Ordered By: Venkatesh Trammell on 11-18-2022 Hematocrit (Bld) [Volume fraction] 26.8 % 34.0-46.4 [facility] Hemoglobin [Mass/volume] in BloodOrdered By: Venkatesh Trammell on 11-18-2022 Hemoglobin (Bld) [Mass/Vol] 8.7 g/dL 11.8-15.4 [facility] Hepatic Panelon 11-18-2022 Albumin [Mass/Vol] 3.4 g/dL Low 3.5-5.7 [facility] Comment on above: Performed By: #### H EPATIC #### [address] Albumin/Globulin [Mass ratio] 1.1 {ratio} Normal [facility] Comment on above: Performed By: #### H EPATIC #### [address] ALP [Catalytic activity/Vol] 54 U/L Normal 34-104 [facility] Comment on above: Result Comment: PERF ORMED BY: [place] [address] PATHOLOGIST PEDIATRIC NEUROPSYCHOLOGIST KOBE VENCES M.D. Performed By: #### H EPATIC #### [address] ALT [Catalytic activity/Vol] 10 U/L Normal 7-52 [facility] Comment on above: Performed By: #### H EPATIC #### [facility] [address] [place] [address] AST [Catalytic activity/Vol] 15 U/L Normal 13-39 [facility] Comment on above: Performed By: #### H EPATIC #### [address] Bilirubin [Mass/Vol] 0.4 mg/dL Normal 0.3-1.0 [place] Comment on above: Performed By: #### H EPATIC #### [place] [address] [place] Bilirubin,Indirect 0.3 mg/dL Normal [facility] Comment on above: Performed By: #### H EPATIC #### [address] Bilirubin.indirect [Mass/Vol] 0.10 mg/dL Normal 0.03-0.18 [facility] Comment on above: Performed By: #### H EPATIC #### [facility] [address] Globulin (S) [Mass/Vol] 3.2 g/dL Normal [facility] Comment on above: Performed By: #### H EPATIC #### [facility] [address] [place] [id number] [facility] Protein [Mass/Vol] 6.6 g/dL Normal 6.4-8.9 [facility] Comment on above: Performed By: #### H EPATIC #### [facility] [address] Laboratory - CoagulationOrde red By: Venkatesh Trammell on 11-18-2022 PT Coag (PPP) [Time] 17.6 s 9.0-12.9 [place] Leukocytes [#/volume] correc loan for nucleated erythrocytes in Blood by Automated counOrdered By: Venkatesh Trammell on 11-18-2022 WBC corrected for nucl RBC Auto (Bld) [#/Vol] 6.8 10*3/uL 3.8-11.6 [facility] Lymphocytes Auto (Bld) [#/Vo l]Ordered By: Venkatesh Trammell on 11-18-2022 Lymphocytes (Bld) [#/Vol] 1.5 10*3/uL 1.00-4.8 [facility] Lymphocytes/100 WBC Auto (Bl d)Ordered By: Venkatesh Trammell on 11-18-2022 Lymphocytes/100 WBC (Bld) 22.5 % . [facility] MCH Auto (RBC) [Entitic mass ]Ordered By: Venkatesh Trammell on 11-18-2022 MCH (RBC) [Entitic mass] 29.1 pg 24.7-34.3 [facility] MCHC Auto (RBC) [Mass/Vol]Or dered By: Venkatesh Trammell on 11-18-2022 MCHC (RBC) [Mass/Vol] 32.4 g/dL 32.0-35.0 [facility] MCV Auto (RBC) [Entitic vol] Ordered By: Venkatesh Trammell on 11-18-2022 MCV (RBC) [Entitic vol] 89.8 fL 80-100 [facility] Monocyte distribution width [Entitic volume] in Blood by AutomatedOrdered By: Venkatesh Trammell on 11-18-2022 Monocyte distribution width Auto (Bld) [Entitic vol] 16.05 % 0.00-20.00 [facility] Monocytes Auto (Bld) [#/Vol] Ordered By: Venkatesh Trammell on 11-18-2022 Monocytes (Bld) [#/Vol] 0.4 10*3/uL 0.0-0.8 [facility] Monocytes/100 WBC Auto (Bld) Ordered By: Venkatesh Trammell on 11-18-2022 Monocytes/100 WBC (Bld) 5.7 % . [facility] Natriuretic peptide B [Mass/ Vol]Ordered By: Venkatesh Trammell on 11-18-2022 Natriuretic peptide B (Bld) [Mass/Vol] 2080.0 pg/mL 5-100 [facility] Neutrophils Auto (Bld) [#/Vo l]Ordered By: Venkatesh Trammell on 11-18-2022 Neutrophils (Bld) [#/Vol] 4.7 10*3/uL 1.8-7.7 [facility] Neutrophils/100 WBC Auto (Bl d)Ordered By: Venkatesh Trammell on 11-18-2022 Neutrophils/100 WBC (Bld) 69.4 % . [facility] No Panel InformationOrdered By: Venkatesh Trammell on 11-18-2022 Estimated GFR (CKD-EPI) 29.779 mL/Min [facility] Creatinine Clearance (Chem 25.51 [facility] Nucleated erythrocytes [Pres ence] in Blood by Automated countOrdered By: Venkatesh Trammell on 11-18-2022 Nucleated RBC Auto Ql (Bld) 0.0 /100{WBC} 0-0.5 [facility] Partial Thromboplastin Timeo n 11-18-2022 aPTT Coag (Bld) [Time] 35.1 s Normal 25.1-36.5 [facility] Comment on above: Result Comment: PERF ORMED BY: [facility] [address] [place] [address] PATHOLOGIST PEDIATRIC NEUROPSYCHOLOGIST KOBE VENCES M.D. Performed By: #### B MP, MG, FE and TIBC, AFSANEH, CBC #### [facility] [address] Platelet mean volume Auto (B ld) [Entitic vol]Ordered By: Venkatesh Trammell on 11-18-2022 Platelet mean volume (Bld) [Entitic vol] 8.2 fL 6.3-10.7 [facility] Platelet poor plasma interna tional normalized ratio (INR) by coagulation assay (relatOrdered By: Venkatesh Trammell on 11-18-2022 INR Coag (PPP) [Relative time] 1.5 {INR} [facility] Comment on above: INR Therapeutic Rang e [...] 11-18-2022 Platelets (Bld) [#/Vol] 169 10*3/uL 150-450 [facility] Potassium [Moles/volume] in Serum or PlasmaOrdered By: Venkatesh Trammell on 11-18-2022 Potassium [Moles/Vol] 5.2 mmol/L 3.5-5.1 [facility] Protein [Mass/volume] in Ser um or PlasmaOrdered By: Venkatesh Trammell on 11-18-2022 Protein [Mass/Vol] 6.6 g/dL 6.4-8.9 [facility] Prothrombin Time INRon 11-18 INR Coag (PPP) [Relative time] 1.5 {INR} Normal [facility] Comment on above: Result Comment: INR Therapeutic [...] MG, FE and TIBC, AFSANEH, CBC #### [facility] [address] PT Coag (PPP) [Time] 17.6 s High 9.0-12.9 [place] Comment on above: Performed By: #### B MP, MG, FE and TIBC, AFSANEH, CBC #### [facility] [address] RBC Auto (Bld) [#/Vol]Ordere d By: Venkatesh Trammell on 11-18-2022 RBC (Bld) [#/Vol] 2.98 10*6/uL 3.60-5.[address] [facility] Serum or plasma albumin/glob ulin mass ratioOrdered By: Venkatesh Trammell on 11-18-2022 Albumin/Globulin [Mass ratio] 1.1 {ratio} [facility] Serum or plasma anion gap de terminationOrdered By: Venkatesh Trammell on 11-18-2022 Anion gap [Moles/Vol] 10.0 mmol/L 6.0-15.0 [facility] Serum or plasma non-glucuron idated bilirubin measurement (mass/volume)Ordered By: Venkatesh Trammell on 11-18-2022 Bilirubin.indirect [Mass/Vol] 0.3 mg/dL [facility] Sodium [Moles/volume] in Ser um or PlasmaOrdered By: Venkatesh Trammell on 11-18-2022 Sodium [Moles/Vol] 142 mmol/L 136-145 [facility] Troponin I High Sensitivityo n 11-18-2022 Troponin I High Sensitivity 18.4 pg/mL High 0.0-15.0 [facility] Comment on above: Result Comment: PERF ORMED BY: [place] [address] PATHOLOGIST PEDIATRIC NEUROPSYCHOLOGIST KOBE VENCES M.D. Performed By: #### B MP, MG, FE and TIBC, AFSANEH, CBC #### [facility] [address] Troponin I High Sensitivity 18.0 pg/mL High 0.0-15.0 [facility] Comment on above: Result Comment: PERF ORMED BY: [place] [address] PATHOLOGIST PEDIATRIC NEUROPSYCHOLOGIST KOBE VENCES M.D. Performed By: #### B MP, MG, FE and TIBC, AFSANEH, CBC #### [address] Troponin I.cardiac [Mass/vol ume] in Serum or Plasma by Detection limit <= 0.01 ng/Ordered By: Gina Poole on 11-18-2022 Troponin I.cardiac DL <= 0.01 ng/mL [Mass/Vol] 18.4 pg/mL 0.0-15.0 [facility] Urea nitrogen [Mass/volume] in Serum or PlasmaOrdered By: Venkatesh Trammell on 11-18-2022 Urea nitrogen [Mass/Vol] 29 mg/dL 7-25 [facility] WBC Auto (Bld) [#/Vol]Ordere d By: Venkatesh Trammell on 11-18-2022 WBC (Bld) [#/Vol] 6.8 10*3/uL 3.8-11.6 [facility] XR chest 1V portableon 11-18 XR chest 1V portable [facility] [place] [address] [place] [address] XRay Report Signed Patient: Kate Hagen MR#: [id number] 52 : 1950 Acct:[id number] Age/Sex: 71 / F ADM Date: 11/18/22 [...] Ferreira Jr., D.O.11/18/2022 5:40 PM Dictation Location: [facility] Transcribed By: [facility] 11/18/221739 Dictated By: Perez Ferreira Jr, DO 11/18/221738 Signed By: 11/18/221739 [facility] 36on 10-30-2022 36 Milena from [facility] called to make you aware that patient has gained 5lbs since the [employer]um[employer] increase on 10/27. She said her lungs are clear and diminished. She is not coughing and she is not edematous. Did you want to make any other changes? Please advise. Thanks. [facility] Telephoneon 10-30-2022 Telephone [id number] Maria G Hagen 1950 F Date Provider Department Center 10/30/2022 PHILL HALEY Family History Problem Relation Age of Onset Stroke Mother Hypertension Mother Heart attack Father Hypertension Sister Heart attack Sister Heart attack Brother Family Status - Relation Status Age at Mother Father Sister Brother [facility] Office Visiton 10-27-2022 Follow-up visit [id number] Maria G Hagen 1950 F Date Provider Department Center 10/27/2022 PHILL HALEY Family History Problem Relation Age of Onset Stroke Mother Hypertension Mother Heart attack Father Hypertension Sister Heart attack Sister Heart attack Brother Family Status - Relation Status Age at Mother Father Sister Brother Level of Service:36338 [place] OFFICE/OUTPATIENT ESTABLISHED MOD MDM 30-39 MIN [facility] Office Visiton 09-22-2022 Follow-up visit [id number] Maria G Hagen 1950 F Date Provider Department Center 09/22/2022 [facility] Family History Problem Relation Age of Onset Stroke Mother Hypertension Mother Heart attack Father Hypertension Sister Heart attack Sister Heart attack Brother Family Status - Relation Status Age at Mother Father Sister Brother Level of Service:12042 [place] OFFICE/OUTPATIENT ESTABLISHED LOW MDM 20-29 MIN Reason for Visit and Comments: Follow-up [932512] - Event monitor follow up Normal [facility] BNPon 09-08-2022 Natriuretic peptide B (Bld) [Mass/Vol] 64986.0 pg/mL Critically high <=900.0 [facility] Comment on above: Performed By: #### C MP, BNP ####[facility] [address] [place], [place] [address]Dr. Ivette Hernandez CBC AUTO DIFFon 09-08-2022 BASO # 0.0 103/ul Normal 0.0-0.1 [facility] Comment on above: Performed By: #### C BC ####[facility] [address] [place], [place] [address]Dr. Ivette Hernandez Basophils/100 WBC (Bld) 0.0 % Critically low 0.2-2.0 [facility] Comment on above: Performed By: #### C BC ####[facility] [address] [place], [place] [address]Dr. Ivette Hernandez EO # 0.0 103/ul Normal 0.0-0.7 [facility] Comment on above: Performed By: #### C BC ####[facility] [address] [place], [place] [address]Dr. Ivette Hernandez Eosinophils/100 WBC (Bld) 0.0 % Critically low 0.9-7.0 [facility] Comment on above: Performed By: #### C BC ####[facility] [address] [place], [place] [address]Dr. Ivette Hernandez Erythrocyte distribution width (RBC) [Ratio] 14.0 % Normal 11.0-15.0 [facility] Comment on above: Performed By: #### C BC ####[facility] [address] [place], [place] [address]DrJesse Hernandez Hematocrit (Bld) [Volume fraction] 26.0 % Critically low 36.0-48.0 [facility] Comment on above: Performed By: #### C BC ####[facility] [address] [place], [place] [address]Dr. Ivette Hernandez Hemoglobin (Bld) [Mass/Vol] 8.2 g/dL Critically low 12.0-16.0 [facility] Comment on above: Performed By: #### C BC ####[facility] [address] [place] [id number] Hernandez IG # 0.06 10e3/ul Critically high 0.00-0.03 [facility] Comment on above: Performed By: #### C BC ####[facility] [address] [place] [id number] Hernandez IG % 0.7 % Critically high 0.0-0.5 [facility] Comment on above: Performed By: #### C BC ####[facility] [address] [place] [address]DrJesse Hernandez LYMPH # 0.7 103/ul Critically low 1.2-3.8 [facility] Comment on above: Performed By: #### C BC ####[facility] [address] [place] [address]DrJesse Hernandez Lymphocytes/100 WBC (Bld) 8.2 % Critically low 20.5-60.0 [facility] Comment on above: Performed By: #### C BC ####[facility] [address] [place] [address]DrJesse Hernandez MANUAL DIFF REQ NO Normal [facility] Comment on above: Performed By: #### C BC ####[facility] [address] [place] [address]DrJesse Hernandez MCH (RBC) [Entitic mass] 29.4 pg Normal 26.7-34.0 [facility] Comment on above: Performed By: #### C BC ####[facility] [address] [place] [id number] Hernandez MCHC (RBC) [Mass/Vol] 31.5 g/dL Normal 29.9-35.2 [facility] Comment on above: Performed By: #### C BC ####[facility] [address] [place] [id number] Hernandez MCV (RBC) [Entitic vol] 93.2 fL Normal 81.0-99.0 [facility] Comment on above: Performed By: #### C BC ####[facility] [address] [place] [id number]. Ivette Hernandez MONO # 0.3 103/ul Normal 0.3-0.8 [facility] Comment on above: Performed By: #### C BC ####[facility] [address] [place] [id number]. Ivette Hernandez Monocytes/100 WBC (Bld) 3.5 % Normal 1.7-12.0 [facility] Comment on above: Performed By: #### C BC ####[facility] [address] [place] [id number]. Ivette Hernandez NEUT # 7.6 103/ul Critically high 1.4-6.5 [facility] Comment on above: Performed By: #### C BC ####[facility] [address] [place] [address]Dr. Ivette Hernandez Neutrophils/100 WBC (Bld) 87.6 % Critically high 43.0-75.0 [facility] Comment on above: Performed By: #### C BC ####[facility] [address] [place] [address]Dr. Ivette Hernandez Platelet mean volume (Bld) [Entitic vol] 9.6 fL Normal 9.5-13.5 [facility] Comment on above: Performed By: #### C BC ####[facility] [address] [place] [id number]. Ivette Hernandez PLT 224 103/ul Normal 150-450 [facility] Comment on above: Performed By: #### C BC ####[facility] [address] [place] [id number]. Ivette Hernandez RBC 2.79 106/ul Critically low 4.20-5.40 [facility] Comment on above: Performed By: #### C BC ####[facility] [address] [place] [id number]. Ivette Hernandez WBC 8.7 103/ul Normal 4.0-11.0 [facility] Comment on above: Performed By: #### C BC ####[facility] [address] [place] [address]Dr. Ivette Hernandez PROF 14(COMP METB)on 023 Albumin [Mass/Vol] 2.5 g/dL Critically low 3.4-5.0 Th e [facility] Comment on above: Performed By: #### C MP, BNP ####[facility] [address] [place] [address]Dr. Ivette Hernandez Albumin/Globulin [Mass ratio] 0.6 {ratio} Normal [facility] Comment on above: Performed By: #### C MP, BNP ####[facility] [address] [place], [place] [address]Dr. Ivette Hernandez ALP [Catalytic activity/Vol] 66 U/L Normal 46-116 [facility] Comment on above: Performed By: #### C MP, BNP ####[facility] [address] [place], [place] [address]Dr. Ivette Hernandez ALT [Catalytic activity/Vol] 20 U/L Normal 14-59 [facility] Comment on above: Performed By: #### C MP, BNP ####[facility] [address] [place], [place] [address]Dr. Ivette Hernandez Anion gap [Moles/Vol] 9.1 mmol/L Normal [facility] Comment on above: Performed By: #### C MP, BNP ####[facility] [address] [place] [address]Dr. Ivette Hernandez AST [Catalytic activity/Vol] 11 U/L Critically low 15-37 [facility] Comment on above: Performed By: #### C MP, BNP ####[facility] [address] [place] [address]Dr. Ivette Hernandez Bilirubin [Mass/Vol] 0.4 mg/dL Normal 0.2-1.0 [facility] Comment on above: Performed By: #### C MP, BNP ####[facility] [address] [place] [address]Dr. Ivette Hernandez Calcium [Mass/Vol] 8.5 mg/dL Normal 8.5-10.1 [facility] Comment on above: Performed By: #### C MP, BNP ####[facility] [address] [place], [place] [address]Dr. Ivette Hernandez Chloride [Moles/Vol] 103 mmol/L Normal 98-107 [facility] Comment on above: Performed By: #### C MP, BNP ####[facility] [address] [place], [place] [address]Dr. Ivette Hernandez CO2 [Moles/Vol] 37.1 mmol/L Critically high 21.0-32.0 [facility] Comment on above: Performed By: #### C MP, BNP ####[facility] [address] [place], [place] [address]Dr. Ivette Hernandez Creatinine [Mass/Vol] 1.87 mg/dL Critically high 0.55-1.02 [facility] Comment on above: Performed By: #### C MP, BNP ####[facility] [address] [place], [place] [address]Dr. Ivette Hernandez EGFR-AF KUWAITI 32 mL/min/1.73m2 Critically low >=60 [facility] Comment on above: Performed By: #### C MP, BNP ####[facility] [address] [place], [place] [address]Dr. Ivette Hernandez EGFR-NON AF [place]I 26 mL/min/1.73m2 Critically low >=60 [facility] Comment on above: Performed By: #### C MP, BNP ####[facility] [address] [place], [place] [address]Dr. Ivette Hernandez Globulin (S) [Mass/Vol] 4.2 g/dL Normal [facility] Comment on above: Performed By: #### C MP, BNP ####[facility] [address] [place], [place] [address]Dr. Ivette Hernandez Glucose [Mass/Vol] 196 mg/dL Critically high 74-106 [facility] Comment on above: Performed By: #### C MP, BNP ####[facility] [address] [place], [place] [address]Dr. Cherjun Hernandez Potassium [Moles/Vol] 4.2 mmol/L Normal 3.5-5.1 [facility] Comment on above: Performed By: #### C MP, BNP ####[facility] [address] [place], [place] [address]Dr. Ivette Hernandez Protein [Mass/Vol] 6.7 g/dL Normal 6.4-8.2 [facility] [place] Comment on above: Performed By: #### C MP, BNP ####[facility] [address] [place], [place] [address]Dr. Ivette Hernandez Sodium [Moles/Vol] 145 mmol/L Normal 136-145 [facility] [place] Comment on above: Performed By: #### C MP, BNP ####[facility] Cslugooniv[address] [place], [place] [address]Dr. Ivette Hernandez Urea nitrogen [Mass/Vol] 45.0 mg/dL Critically high 7.0-18.0 [facility] Comment on above: Performed By: #### C MP, BNP ####[facility] Adtlpzjsmr[address] [place], [place] [address]Dr. Ivette Hernandez Urea nitrogen/Creatinine [Mass ratio] 24.1 mg/mg Normal [facility] Comment on above: Performed By: #### C MP, BNP ####[facility] Mkkvtwkcay[address] [place], [place] [address]Dr. Ivette David BNPon 09-07-2022 Natriuretic peptide B (Bld) [Mass/Vol] 62932.0 pg/mL Critically high <=900.0 [facility] Comment on above: Performed By: #### C MP, BNP ####[facility] Dpmsfsugmb22[address] [place], [place] [address]Dr. Ivette Hernandez CBC AUTO DIFFon 09-07-2022 BASO # 0.0 103/ul Normal 0.0-0.1 [facility] Comment on above: Performed By: #### C BC ####[facility] Tttufcujlm[address] [place], [place] [address]Dr. Ivette Hernandez Basophils/100 WBC (Bld) 0.1 % Critically low 0.2-2.0 [facility] Comment on above: Performed By: #### C BC ####[facility] Ulnrlzjmuk[address] [place] [address]Dr. Ivette Hernandez EO # 0.0 103/ul Normal 0.0-0.7 [facility] Comment on above: Performed By: #### C BC ####[facility] Updjarfeay[address] [place], [place] [address]Dr. Ivette Hernandez Eosinophils/100 WBC (Bld) 0.0 % Critically low 0.9-7.0 [facility] Comment on above: Performed By: #### C BC ####[facility] Ehqoozjheq78[address] [place], [place] [address]Dr. Ivette Hernandez Erythrocyte distribution width (RBC) [Ratio] 13.9 % Normal 11.0-15.0 [facility] Comment on above: Performed By: #### C BC ####[facility] Repojywdpv1067[address] [place], [place] [address]Dr. Ivette Hernandez Hematocrit (Bld) [Volume fraction] 26.6 % Critically low 36.0-48.0 [facility] Comment on above: Performed By: #### C BC ####[facility] Fywaaoouel4[address] [place], [place] [address]DrJesse Hernandez Hemoglobin (Bld) [Mass/Vol] 8.3 g/dL Critically low 12.0-16.0 [facility] Comment on above: Performed By: #### C BC ####[facility] Fjkmmuatlw8[address] [place], [place] [address]DrJesse Hernandez IG # 0.07 10e3/ul Critically high 0.00-0.03 [facility] Comment on above: Performed By: #### C BC ####[facility] Lsrtcsrmgo44[address] [place], [place] [address]DrJesse Hernandez IG % 0.8 % Critically high 0.0-0.5 [facility] Comment on above: Performed By: #### C BC ####[facility] Etmputaxch4[address] [place], [place] [address]DrJesse Hernandez LYMPH # 0.6 103/ul Critically low 1.2-3.8 [facility] Comment on above: Performed By: #### C BC ####[facility] Bjkgvupdso16[address] [place] [address]DrJesse Hernandez Lymphocytes/100 WBC (Bld) 7.2 % Critically low 20.5-60.0 [facility] Comment on above: Performed By: #### C BC ####[facility] Oxcadpfftj5174 [place] [address]DrJesse Hernandez MANUAL DIFF REQ NO Normal [facility] Comment on above: Performed By: #### C BC ####[facility] Mjklrvogdr1661 [place] [address]DrJesse Hernandez MCH (RBC) [Entitic mass] 29.5 pg Normal 26.7-34.0 [facility] Comment on above: Performed By: #### C BC ####[facility] Fivvsbtbqv0836[address] [place], [place] [address]Dr. Ivette Hernandez MCHC (RBC) [Mass/Vol] 31.2 g/dL Normal 29.9-35.2 [facility] Comment on above: Performed By: #### C BC ####[facility] Cnwtzemtqk16[address] [place], [place] [address]DrJesse Hernandez MCV (RBC) [Entitic vol] 94.7 fL Normal 81.0-99.0 [facility] Comment on above: Performed By: #### C BC ####[facility] Oacfmqqohh06[address] [place], [place] [address]DrJesse Hernandez MONO # 0.6 103/ul Normal 0.3-0.8 [facility] Comment on above: Performed By: #### C BC ####[facility] Crhotijgza3412[address] [place], [place] [address]DrJesse Hernandez Monocytes/100 WBC (Bld) 6.8 % Normal 1.7-12.0 [facility] Comment on above: Performed By: #### C BC ####[facility] Gzhtypxnqq[address] [place], [place] [address]DrJesse Hernandez NEUT # 7.4 103/ul Critically high 1.4-6.5 [facility] Comment on above: Performed By: #### C BC ####[facility] Kpimlrdztf6080 [place] [address]Dr. Ivette Hernandez Neutrophils/100 WBC (Bld) 85.1 % Critically high 43.0-75.0 [facility] Comment on above: Performed By: #### C BC ####[facility] Tosqooehse500[address] [place] [address]Dr. Ivette Hernandez Platelet mean volume (Bld) [Entitic vol] 9.5 fL Normal 9.5-13.5 [facility] Comment on above: Performed By: #### C BC ####[facility] Utrvmayeiu014[address] [place], [place] [address]Dr. Ivette Hernandez PLT 227 103/ul Normal 150-450 [facility] Comment on above: Performed By: #### C BC ####[facility] Diuwcjmoag0868[address] [place], [place] [address]Dr. Ivette Hernandez RBC 2.81 106/ul Critically low 4.20-5.40 [facility] Comment on above: Performed By: #### C BC ####[facility] Msghcljevh25[address] [place], [place] [address]Dr. Ivette Hernandez WBC 8.7 103/ul Normal 4.0-11.0 [facility] Comment on above: Performed By: #### C BC ####[facility] Mqhzesvurc[address] [place], [place] [address]Dr. Ivette Hernandez BASO # 0.0 103/ul Normal 0.0-0.1 [facility] Comment on above: Performed By: #### C BC ####[facility] Pwrdqmplfu3801[address] [place], [place] [address]Dr. Ivette Hernandez Basophils/100 WBC (Bld) 0.0 % Critically low 0.2-2.0 [facility] Comment on above: Performed By: #### C BC ####[facility] Hedxdnrkol649[address] [place], [place] [address]Dr. Ivette David EO # 0.0 103/ul Normal 0.0-0.7 [facility] Comment on above: Performed By: #### C BC ####[facility] Ulzbtjrgrt60[address] [place] [address]Dr. Ivette David Eosinophils/100 WBC (Bld) 0.0 % Critically low 0.9-7.0 [facility] Comment on above: Performed By: #### C BC ####[facility] Xglyywsyrx509[address] [place], [place] [address]Dr. Ivette Hernandez Erythrocyte distribution width (RBC) [Ratio] 13.1 % Normal 11.0-15.0 [facility] Comment on above: Performed By: #### C BC ####[facility] Jqatouidtb079[address] [place], [place] [address]Dr. Ivette Hernandez Hematocrit (Bld) [Volume fraction] 25.9 % Critically low 36.0-48.0 [facility] Comment on above: Performed By: #### C BC ####[facility] Cxirpgeppm4588[address] [place], [place] [address]Dr. Ivette Hernandez Hemoglobin (Bld) [Mass/Vol] 8.0 g/dL Critically low 12.0-16.0 [facility] Comment on above: Performed By: #### C BC ####[facility] Cljvdtxezo075[address] [place], [place] [address]Dr. Ivette Hernandez IG # 0.06 10e3/ul Critically high 0.00-0.03 [facility] Comment on above: Performed By: #### C BC ####[facility] Whvswknjzi138[address] [place], [place] [address]Dr. Ivette Hernandez IG % 1.1 % Critically high 0.0-0.5 [facility] Comment on above: Performed By: #### C BC ####[facility] Urjkuhngfu3664[address] [place], [place] [address]DrJesse Hernandez LYMPH # 0.8 103/ul Critically low 1.2-3.8 [facility] Comment on above: Performed By: #### C BC ####[facility] Rezytkjsqk088[address] [place], [place] [address]DrJesse Hernandez Lymphocytes/100 WBC (Bld) 14.8 % Critically low 20.5-60.0 [facility] Comment on above: Performed By: #### C BC ####[facility] Myjzhliyry[address] [place] [address]DrJesse Hernandez MANUAL DIFF REQ NO Normal [facility] Comment on above: Performed By: #### C BC ####[facility] Pcvvunaslz1886 [place] [address]DrJesse Hernandez MCH (RBC) [Entitic mass] 29.7 pg Normal 26.7-34.0 [facility] Comment on above: Performed By: #### C BC ####[facility] Mtemosmfdd778[address] [place], [place] [address]DrJesse Hernandez MCHC (RBC) [Mass/Vol] 30.9 g/dL Normal 29.9-35.2 [facility] Comment on above: Performed By: #### C BC ####[facility] Ptyjavojhs4550[address] [place], [place] [address]DrJesse Hernandez MCV (RBC) [Entitic vol] 96.3 fL Normal 81.0-99.0 [facility] Comment on above: Performed By: #### C BC ####[facility] Bytzzfomar[address] [place], [place] [address]DrJesse Hernandez MONO # 0.1 103/ul Critically low 0.3-0.8 [facility] Comment on above: Performed By: #### C BC ####[facility] Fkdxizqata[address] [place], [place] [address]DrJesse Hernandez Monocytes/100 WBC (Bld) 2.0 % Normal 1.7-12.0 [facility] Comment on above: Performed By: #### C BC ####[facility] Mnsdwowbbs7025[address] [place], [place] [address]DrJesse Hernandez NEUT # 4.5 103/ul Normal 1.4-6.5 [facility] Comment on above: Performed By: #### C BC ####[facility] Qkrcrtmvuj3395[address] [place], [place] [address]DrJesse Hernandez Neutrophils/100 WBC (Bld) 82.1 % Critically high 43.0-75.0 [facility] Comment on above: Performed By: #### C BC ####[facility] Sigkiptpln[address] [place] [id number] Ivette Hernandez Platelet mean volume (Bld) [Entitic vol] 9.4 fL Critically low 9.5-13.5 [facility] Comment on above: Performed By: #### C BC ####[facility] Uodydbbusu[address] [place] [id number] Ivette Hernandez PLT 224 103/ul Normal 150-450 [facility] Comment on above: Performed By: #### C BC ####[facility] Xghxhuaipi4238 [place] [address]DrJesse Ivette Hernandez RBC 2.69 106/ul Critically low 4.20-5.40 [facility] Comment on above: Performed By: #### C BC ####[facility] Pakfahlwer034[address] [place] [address]DrJesse Ivette Hernandez WBC 5.5 103/ul Normal 4.0-11.0 [facility] Comment on above: Performed By: #### C BC ####[facility] E[address]icrmmrpp[address] [place], [place] [address]DrJesse Ivette Hernandez CULTURE SPUTUMon 09-07-2022 CULTURE SPUTUM Isolate 1 Carolee albicans Moderate growth of Normal [facility] Comment on above: Performed By: #### S PUTCX ####[facility] Hnkhoyerjq[address] [place] [address]DrJesse Ivette Hernandez ECHOCARDIO M/2D COMPLETEon 0 09-07-2022 ECHOCARDIO M/2D COMPLETE Normal [facility] PRBC LEUKOREDUCEDon 09-08-19 23 PRBC LEUKOREDUCED Normal [facility] Comment on above: Performed By: #### P RBC ####[facility] Gqlxkbqipx[address] [place] [address]DrJesse Cherjun Hernandez PROF 14(COMP METB)on 023 Albumin [Mass/Vol] 2.4 g/dL Critically low 3.4-5.0 [facility] Comment on above: Performed By: #### C MP, BNP ####[facility] Yoltrfuolf60[address] [place] [id number]. Ivette Hernandez Albumin/Globulin [Mass ratio] 0.5 {ratio} Normal [facility] Comment on above: Performed By: #### C MP, BNP ####[facility] Otwdlqgzye33[address] [place] [id number]. Ivette Hernandez ALP [Catalytic activity/Vol] 75 U/L Normal 46-116 [facility] Comment on above: Performed By: #### C MP, BNP ####[facility] Jsmtcafbyy6071 [place] [id number]. Ievtte Hernandez ALT [Catalytic activity/Vol] 17 U/L Normal 14-59 [facility] Comment on above: Performed By: #### C MP, BNP ####[facility] Ayophecovy4035 [place] [address]Dr. Ivette Hernandez Anion gap [Moles/Vol] 11.3 mmol/L Normal [facility] Comment on above: Performed By: #### C MP, BNP ####[facility] Lnbawhnysu2738 [place] [id number]. Ivette Hernandez AST [Catalytic activity/Vol] 15 U/L Normal 15-37 [facility] Comment on above: Performed By: #### C MP, BNP ####[facility] Luzemcvpmi8445 [place] [address]Dr. Ivette Hernandez Bilirubin [Mass/Vol] 0.3 mg/dL Normal 0.2-1.0 [facility] Comment on above: Performed By: #### C MP, BNP ####[facility] Nrqrzvyevr3485 [place] [id number]. Ivette Hernandez Calcium [Mass/Vol] 7.9 mg/dL Critically low 8.5-10.[address] [facility] Comment on above: Performed By: #### C MP, BNP ####[facility] Dhnfgzwddz[address] [place] [address]Dr. Ivette Hernandez Chloride [Moles/Vol] 104 mmol/L Normal 98-107 [facility] Comment on above: Performed By: #### C MP, BNP ####[facility] Ilzjqzfruh8490 [place] [address]Dr. Ivette Hernandez CO2 [Moles/Vol] 33.3 mmol/L Critically high 21.0-32.0 [facility] Comment on above: Performed By: #### C MP, BNP ####[facility] Mdpccexzte[address] [place], [place] [address]Dr. Ivette Hernandez Creatinine [Mass/Vol] 1.68 mg/dL Critically high 0.55-1.02 [facility] Comment on above: Performed By: #### C MP, BNP ####[facility] Xdsecfbtbo87[address] [place], [place] [address]Dr. Ivette Hernandez EGFR-AF KUWAITI 36 mL/min/1.73m2 Critically low >=60 [facility] Comment on above: Performed By: #### C MP, BNP ####[facility] Edjvsfzuhh070[address] [place], [place] [address]Dr. Ivette Hernandez EGFR-NON AF [place]I 30 mL/min/1.73m2 Critically low >=60 [facility] Comment on above: Performed By: #### C MP, BNP ####[facility] Soasauetmi798[address] [place], [place] [address]Dr. Ivette Hernandez Globulin (S) [Mass/Vol] 4.5 g/dL Normal [facility] Comment on above: Performed By: #### C MP, BNP ####[facility] Kovkounpys[address] [place], [place] [address]Dr. Ivette Hernandez Glucose [Mass/Vol] 203 mg/dL Critically high 74-106 [facility] Comment on above: Performed By: #### C MP, BNP ####[facility] Wydgvexrha[address] [place], [place] [address]Dr. Ivette Hernandez Potassium [Moles/Vol] 4.6 mmol/L Normal 3.5-5.1 [facility] Comment on above: Performed By: #### C MP, BNP ####[facility] Cvgqieoklc36[address] [place], [place] [address]Dr. Ivette Hernandez Protein [Mass/Vol] 6.9 g/dL Normal 6.4-8.2 [facility] [place] Comment on above: Performed By: #### C MP, BNP ####[facility] Qwzkeobwze2412 [place] [address]Dr. Ivette Hernandez Sodium [Moles/Vol] 144 mmol/L Normal 136-145 [facility] [place] Comment on above: Performed By: #### C MP, BNP ####[facility] Nawezyolpm155[address] [place], [place] [address]Dr. Ivette Hernandez Urea nitrogen [Mass/Vol] 33.0 mg/dL Critically high 7.0-18.0 [facility] Comment on above: Performed By: #### C MP, BNP ####[facility] Dgkpbvhijj4740[address] [place], [place] [address]Dr. Ivette Hernandez Urea nitrogen/Creatinine [Mass ratio] 19.6 mg/mg Normal [facility] Comment on above: Performed By: #### C MP, BNP ####[facility] Dbczbylrbj4800[address] [place], [place] [address]Dr. Ivette Hernandez SPUTUM GRAM STAINon 09-08-19 COMMENTS Normal [facility] Comment on above: Performed By: #### S PUTGS ####[facility] Gtcsubzzxh2260[address] [place], [place] [address]Dr. Ivette Hernandez DIPHTHEROIDS Normal [facility] Comment on above: Performed By: #### S PUTGS ####[facility] Wudbjcafgm8[address] [place], [place] [address]Dr. Ivette Hernandez EPITHELIALS <25 Normal [facility] Comment on above: Performed By: #### S PUTGS ####[facility] Aemnvysbur94[address] [place], [place] [address]Dr. Ivette Hernandez FUNGAL ELEMENTS FEW Normal [facility] Comment on above: Performed By: #### S PUTGS ####[facility] Rwngzqrsiv[address] [place], [place] [address]Dr. Ivette Hernandez GRAM NEG BACILLI Normal [facility] Comment on above: Performed By: #### S PUTGS ####[facility] Fmmuqzxyae[address] [place], [place] [address]Dr. Ivette Hernandez GRAM NEG DIPPLOCOCCI Normal [facility] Comment on above: Performed By: #### S PUTGS ####[facility] Zmhqdsqdgb1007 [place] [address]Dr. Ivette Hernandez GRAM POS BACILLI Normal [facility] Comment on above: Performed By: #### S PUTGS ####[facility] Lsyzvkwfhp64[address] [place] [address]Dr. Ivette Hernandez GRAM POSITIVE COCCI Normal [facility] Comment on above: Performed By: #### S PUTGS ####[facility] Vryzitnoiv[address] [place], [place] [address]Dr. Ivette Hernandez WBC (Bld) [#/Vol] 10*3/uL Normal [facility] Comment on above: Performed By: #### S PUTGS ####[facility] Bxphkrohhj540[address] [place], [place] [address]Dr. Ivette Hernandez TYPE AND SCREENon 09-07-2022 TYPE AND SCREEN Negative Normal [facility] Comment on above: Performed By: #### T NS ####[facility] Uykdvbqycu64[address] [place], [place] [address]Dr. Ivette Hernandez BNPon 09-06-2022 Natriuretic peptide B (Bld) [Mass/Vol] 67483.0 pg/mL Critically high <=900.0 [facility] Comment on above: Performed By: #### B MEDICAL SECRETARY, HSTROPN, LIPA, CMP ####[facility] Xysuqpnluv43[address] [place], [place] [address]Dr. Ivette Hernandez CARDIAC CANDACE ADMITon 023 CK [Catalytic activity/Vol] 73 U/L Normal 26-192 [facility] Comment on above: Performed By: #### C RODDY, MG ####[facility] Kiuvmzazix[address] [place], [place] [address]Dr. Ivette Hernandez CK.MB [Mass/Vol] 1.68 ng/mL Normal <=3.60 [facility] Comment on above: Performed By: #### C RODDY, MG ####[facility] Rtenyhmcfi8[address] [place], [place] [address]Dr. Ivette Hernandez HSTROP 14.7 pg/mL Normal 4.0-51.3 [facility] Comment on above: Result Comment: CUT- OFF POINTS HAVE BEEN ESTABLISHED BASED ON THE FOURTH UNIVERSAL DEFINITIONS OF MYOCARDIALINFARCTION. THE UPPER REFERENCE LIMIT (URL) OF TROPONIN, DEFINED THE 99TH PERCENTILE OFcTnI DISTRIBUTION IN A REFERENCE POPULATION, HAS BEEN CONFIRMED THE DECISION THRESHOLDFOR LA DIAGNOSIS. Performed By: #### C RODDY, MG ####[facility] Dwlgutbavj38[address] [place] [address]Dr. Ivette Hernandez CARMITA 151 ng/mL Critically high 9-82 [facility] Comment on above: Performed By: #### C RODDY, MG ####[facility] Yhudpmfagg[address] [place] [address]Dr. Ivette Hernandez CBC AUTO DIFFon 09-06-2022 BASO # 0.0 103/ul Normal 0.0-0.1 [facility] Comment on above: Performed By: #### C BC ####[facility] Jadrszcxbx5044 [place] [address]Dr. Ivette Hernandez Basophils/100 WBC (Bld) 0.4 % Normal 0.2-2.0 [facility] Comment on above: Performed By: #### C BC ####[facility] Envdayznzy32[address] [place] [address]Dr. Ivette Hernandez EO # 0.1 103/ul Normal 0.0-0.7 [facility] Comment on above: Performed By: #### C BC ####[facility] Fhnodotlzd9087 [place] [address]Dr. Ivette David Eosinophils/100 WBC (Bld) 1.5 % Normal 0.9-7.0 [facility] Comment on above: Performed By: #### C BC ####[facility] Uarnbstbly34[address] [place] [address]Dr. Ivette Hernandez Erythrocyte distribution width (RBC) [Ratio] 13.1 % Normal 11.0-15.0 [facility] Comment on above: Performed By: #### C BC ####[facility] Iuwrveycmo[address] [place] [address]Dr. Ivette Hernandez Hematocrit (Bld) [Volume fraction] 26.8 % Critically low 36.0-48.0 [facility] Comment on above: Performed By: #### C BC ####[facility] Knapbrukyd[address] [place] [address]Dr. Ivette David Hemoglobin (Bld) [Mass/Vol] 8.4 g/dL Critically low 12.0-16.0 [facility] Comment on above: Performed By: #### C BC ####[facility] Gtrlzwkhhv8145 [place] [address]Dr. Ivette Hernandez IG # 0.05 10e3/ul Critically high 0.00-0.03 [facility] Comment on above: Performed By: #### C BC ####[facility] Dnwecrevoz[address]76 [place] [address]Dr. Ivette Hernandez IG % 0.5 % Normal 0.0-0.5 [facility] Comment on above: Performed By: #### C BC ####[facility] Rgxhvwxmhc1564 [place] [address]Dr. Ivette Hernandez LYMPH # 1.6 103/ul Normal 1.2-3.8 [facility] Comment on above: Performed By: #### C BC ####[facility] Tcjynngxkt2644 [place] [address]Dr. Cherjun Hernandez Lymphocytes/100 WBC (Bld) 17.1 % Critically low 20.5-60.0 [facility] Comment on above: Performed By: #### C BC ####[facility] Cxyovcpkmv74[address] [place] [address]Dr. Cherjun Hernandez MANUAL DIFF REQ NO Normal [facility] Comment on above: Performed By: #### C BC ####[facility] Cqyzvvbvso5202 [place] [address]Dr. Cherjun Hernandez MCH (RBC) [Entitic mass] 30.1 pg Normal 26.7-34.0 [facility] Comment on above: Performed By: #### C BC ####[facility] [address]wqrwe[address] [place], [place] [address]Dr. Ivette Hernandez MCHC (RBC) [Mass/Vol] 31.3 g/dL Normal 29.9-35.2 [facility] Comment on above: Performed By: #### C BC ####[facility] Lapywckilj[address] [place] [id number]. Ivette Hernandez MCV (RBC) [Entitic vol] 96.1 fL Normal 81.0-99.0 [facility] Comment on above: Performed By: #### C BC ####[facility] Ypvlytoirg1367 [place] [id number]. Ivette Hernandez MONO # 0.5 103/ul Normal 0.3-0.8 [facility] Comment on above: Performed By: #### C BC ####[facility] Lwfajifgrz7676 [place] [address]Dr. Ivette David Monocytes/100 WBC (Bld) 5.3 % Normal 1.7-12.0 [facility] Comment on above: Performed By: #### C BC ####[facility] Pbfzcmdoxq9951 [place] [id number]. Ivette Hernandez NEUT # 7.0 103/ul Critically high 1.4-6.5 [facility] Comment on above: Performed By: #### C BC ####[facility] Plziiujvuf7782 [place] [id number]. Ivette Hernandez Neutrophils/100 WBC (Bld) 75.2 % Critically high 43.0-75.0 [facility] Comment on above: Performed By: #### C BC ####[facility] Fuujxpanqs9573 [place] [id number]. Ivette Hernandez Platelet mean volume (Bld) [Entitic vol] 9.5 fL Normal 9.5-13.5 [facility] [facility] Comment on above: Performed By: #### C BC ####[facility] [address]ft[address] [place] [id number]. Ivette David PLT 257 103/ul Normal 150-450 [facility] Comment on above: Performed By: #### C BC ####[facility] D[address] [place] [id number]. Ivette Hernandez RBC 2.79 106/ul Critically low 4.20-5.40 The [facility] Comment on above: Performed By: #### C BC ####[facility] Yzmzxexsnr[address] [place] [id number]. Ivette Hernandez WBC 9.3 103/ul Normal 4.0-11.0 [facility] Comment on above: Performed By: #### C BC ####[facility] [address]otpj[address] [place] [id number]. vIette Hernandez CULTURE BLOODon 09-06-2022 Microscopic examination of blood, culture Culture Observations: NO GROWTH AT 5 DAYS. Normal [facility] Comment on above: Performed By: #### B LDCX2 ####[facility] Uvgebiecnn[address] [place] [id number]. Ivette Hernandez Microscopic examination of blood, culture Culture Observations: NO GROWTH AT 5 DAYS. Normal [facility] Comment on above: Performed By: #### B LDCX1 ####[facility] Dhupafzoay[address] [place] [id number]. Ivette Hernandez CULTURE URINEon 09-06-2022 CULTURE URINE Culture Observations : LIGHT GROWTH OF MIXED GENITAL BOB. NO POTENTIAL PATHOGENS SEEN. Normal [facility] Comment on above: Performed By: #### U RCX ####[facility] [address]ir[address] [place] [address]Dr. Ivette Hernandez Covid-19 PCR (CVDTB)on SARS-CoV-2 (COVID-19) RNA MARRY+probe Ql (Unsp spec) Not detected Normal NOT DETECTED [facility] Comment on above: Result Comment: This test is not yet approved or cleared by the [place] FDA. When there are no FDA-approved or cleared tests available, and other criteria are met, FDA can make tests available under an emergency access mechanism called an Emergency Use Authorization (EUA). The EUA for this test is supported by the [place] of Health and Human Service's (HHS's) declaration [...] with SARS-CoV-2. Performed By: #### C VDTBH ####[facility] Yvkvoqkfhk[address] [place], [place] [address]Dr. Ivette Hernandez LACTATE/LACTIC ACIDon 2022 Lactate [Moles/Vol] 0.6 mmol/L Normal 0.4-2.0 [facility] Comment on above: Performed By: #### L ACT ####[facility] Rcfxvwicle[address] [place], [place] [address]Dr. jun [facility] Lactate [Moles/Vol] 0.8 mmol/L Normal 0.4-2.0 [facility] Comment on above: Performed By: #### L ACT ####[facility] [address]tk[address] [place], [place] [address]Dr. jun Hernandez LIPASEon 09-06-2022 Lipase [Catalytic activity/Vol] 157.0 U/L Normal 73.0-393.0 [facility] Comment on above: Performed By: #### B MEDICAL SECRETARY, HSTROPN, LIPA, CMP ####[facility] Bgpkwienov[address] [place], [place] [address]Dr. jun Hernandez MAGNESIUMon 09-06-2022 Magnesium [Mass/Vol] 1.6 mg/dL Critically low 1.8-2.4 [facility] Comment on above: Performed By: #### C MADM, MG ####[facility] Kwujidvuon[address] [place], [place] [address]Dr. Ivette Hernandez PROF 14(COMP METB)on 023 Albumin [Mass/Vol] 2.5 g/dL Critically low 3.4-5.0 [facility] Comment on above: Performed By: #### B MEDICAL SECRETARY, HSTROPN, LIPA, CMP ####[facility] [address]xatjfclrk6[address] [place] [address]Dr. Ivette Hernandez Albumin/Globulin [Mass ratio] 0.5 {ratio} Normal [facility] Comment on above: Performed By: #### B MEDICAL SECRETARY, HSTROPN, LIPA, CMP ####[facility] Jtctkbnlek[address] [place] [address]Dr. Ivette Hernandez ALP [Catalytic activity/Vol] 85 U/L Normal 46-116 [facility] Comment on above: Performed By: #### B MEDICAL SECRETARY, HSTROPN, LIPA, CMP ####[facility] Wogzuuwysb[address] [place] [address]Dr. Ivette Hernandez ALT [Catalytic activity/Vol] 18 U/L Normal 14-59 [facility] Comment on above: Performed By: #### B MEDICAL SECRETARY, HSTROPN, LIPA, CMP ####[facility] W[address]olajj[address] [place] [address]Dr. Ivette Hernandez Anion gap [Moles/Vol] 9.1 mmol/L Normal [facility] Comment on above: Performed By: #### B MEDICAL SECRETARY, HSTROPN, LIPA, CMP ####[facility] Rkvhincxyn7[address] [place] [address]Dr. Ivette Hernandez AST [Catalytic activity/Vol] 18 U/L Normal 15-37 [facility] Comment on above: Performed By: #### B MEDICAL SECRETARY, HSTROPN, LIPA, CMP ####[facility] Wclgqulzxd65[address] [place] [address]Dr. Ivette Hernandez Bilirubin [Mass/Vol] 0.5 mg/dL Normal 0.2-1.0 [facility] Comment on above: Performed By: #### B MEDICAL SECRETARY, HSTROPN, LIPA, CMP ####[facility] [address]vzmkwmie[address] [place] [address]Dr. Ivette Hernandez Calcium [Mass/Vol] 7.8 mg/dL Critically low 8.5-10.1 [facility] Comment on above: Performed By: #### B MEDICAL SECRETARY, HSTROPN, LIPA, CMP ####[facility] Wmdgeffwqu65[address] [place] [address]Dr. Ivette Hernandez Chloride [Moles/Vol] 103 mmol/L Normal 98-107 [facility] Comment on above: Performed By: #### B MEDICAL SECRETARY, HSTROPN, LIPA, CMP ####[facility] Frhmnmbqpr027[address] [place] [address]Dr. Ivette Hernandez CO2 [Moles/Vol] 32.8 mmol/L Critically high 21.0-32.0 [facility] Comment on above: Performed By: #### B MEDICAL SECRETARY, HSTROPN, LIPA, CMP ####[facility] Eppgoqmyyv[address] [place], [place] [address]Dr. Ivette Hernandez Creatinine [Mass/Vol] 1.79 mg/dL Critically high 0.55-1.02 [facility] Comment on above: Performed By: #### B MEDICAL SECRETARY, HSTROPN, LIPA, CMP ####[facility] Vjzzikqmcv[address] [place], [place] [address]Dr. Ivette Hernandez EGFR-AF KUWAITI 34 mL/min/1.73m2 Critically low >=60 [facility] Comment on above: Performed By: #### B MEDICAL SECRETARY, HSTROPN, LIPA, CMP ####[facility] O[address]rmfyd[address] [place], [place] [address]Dr. Ivette Hernandez EGFR-NON AF KUWAITI 28 mL/min/1.73m2 Critically low >=60 [facility] Comment on above: Performed By: #### B MEDICAL SECRETARY, HSTROPN, LIPA, CMP ####[facility] Zyxhvsjlsv[address] [place], [place] [address]Dr. Ivette Hernandez Globulin (S) [Mass/Vol] 4.6 g/dL Normal [facility] Comment on above: Performed By: #### B MEDICAL SECRETARY, HSTROPN, LIPA, CMP ####[facility] Zlfgsjatko4638 [place] [address]Dr. Ivette Hernandez Glucose [Mass/Vol] 170 mg/dL Critically high 74-106 [facility] Comment on above: Performed By: #### B MEDICAL SECRETARY, HSTROPN, LIPA, CMP ####[facility] Qgirrgtkvg6[address] [place] [address]Dr. Ivette Hernandez Potassium [Moles/Vol] 3.9 mmol/L Normal 3.5-5.1 [facility] Comment on above: Performed By: #### B MEDICAL SECRETARY, HSTROPN, LIPA, CMP ####[facility] J[address]wvikamx35[address] [place] [address]Dr. Ivette Hernandez Protein [Mass/Vol] 7.1 g/dL Normal 6.4-8.2 The [facility] [place] Comment on above: Performed By: #### B MEDICAL SECRETARY, HSTROPN, LIPA, CMP ####[facility] [address]yzfqnly[address] [place], [place] [address]Dr. Ivette Hrenandez Sodium [Moles/Vol] 141 mmol/L Normal 136-145 The [facility] [place] Comment on above: Performed By: #### B MEDICAL SECRETARY, HSTROPSanjeev LIPA, CMP ####[facility] Xram[address]strvq[address] [place], [place] [address]Dr. Cherjun Hernandez Urea nitrogen [Mass/Vol] 31.0 mg/dL Critically high 7.0-18.0 [facility] Comment on above: Performed By: #### B MEDICAL SECRETARY, HSTROPSanjeev LIPA, CMP ####[facility] Wzgxjgwmbf[address] [place] [address]Dr. Cherjun Hernandez Urea nitrogen/Creatinine [Mass ratio] 17.3 mg/mg Normal [facility] Comment on above: Performed By: #### B MEDICAL SECRETARY, HSTROPN LIPA, CMP ####[facility] Fuobwftjbe[address] [place], [place] [address]Dr. Ivette Hernandez PROTIMEon 09-06-2022 INR Coag (PPP) [Relative time] 1.13 {INR} Normal [facility] Comment on above: Performed By: #### P TT, PT ####[facility] [address]lx[address] [place], [place] [address]Dr. Cherjun Hernandez INR GUIDELINES SEE BELOW Normal The [facility] Comment on above: Result Comment: MELANIE RED INR: 2.0 - 3.0 CONDITIONS NOT LISTED BELOW 2.5 - 3.5 FOR PROSTHETIC HEART VALVE REPLACEMENT 2.5 - 3.5 RECURRENT THROMBOSIS Performed By: #### P TT, PT ####[facility] [address]jc[address]yhi[address] [place] [address]Dr. Ivette Hernandez PT Coag (PPP) [Time] 11.9 s Critically high 9.0-11.6 [facility] Comment on above: Performed By: #### P TT, PT ####[facility] Ajihbwhdom[address] [place] [address]DrJesse Hernandez PTTon 09-06-2022 aPTT Coag (Bld) [Time] 29.6 s Normal 22.3-36.2 [facility] Comment on above: Performed By: #### P TT, PT ####[facility] Lovgiaactv5627 [place] [address]DrJesse Hernandez SYMPTOMATIC COVID-19 ANTIGEN on 09-06-2022 EUA Statement SEE BELOW Normal The [facility] Comment on above: Result Comment: This [...] revoked sooner. Performed By: #### C VDAGS ####[facility] Mhhavczbfv7[address] [place] [address]DrJesse Ivette Hernandez SARS-CoV-2 (COVID-19) RNA MARRY+probe Ql (Unsp spec) Negative Normal NEGATIVE [facility] Comment on above: Performed By: #### C VDAGS ####[facility] [address]fqwssuqdb[address] [place] [address]Dr. Ivette Hernandez TROPONIN, HIGH SENSITIVITYon 09-06-2022 HSTROP 13.1 pg/mL Normal 4.0-51.3 [facility] Comment on above: Result Comment: CUT- OFF POINTS HAVE BEEN ESTABLISHED BASED ON THE FOURTH UNIVERSAL DEFINITIONS OF MYOCARDIALINFARCTION. THE UPPER REFERENCE LIMIT (URL) OF TROPONIN, DEFINED THE 99TH PERCENTILE OFcTnI DISTRIBUTION IN A REFERENCE POPULATION, HAS BEEN CONFIRMED THE DECISION THRESHOLDFOR LA DIAGNOSIS. Performed By: #### B MEDICAL SECRETARY, HSTROPN, LIPA, CMP ####[facility] [address]rqseoc[address] [place] [address]Dr. Ivette Hernandez UA RANDOM W/MICROSCOPICon BACTERIA SMALL Abnormal NONE SEEN [facility] Comment on above: Performed By: #### U AMIC ####[facility] Idoljkfsrj[address] [place] [address]Dr. Ivette Hernandez Bilirubin Ql (U) Negative Normal NEGATIVE The [facility] Comment on above: Performed By: #### U AMIC ####[facility] C[address]djb[address] [place], [place] [address]Dr. Ivette Hernandez CAST NONE SEEN Normal NONE SEEN [facility] Comment on above: Performed By: #### U AMIC ####[facility] Jonncncjzz[address] [place], [place] [address]Dr. Ivette Hernandez Clarity (U) CLEAR Normal CLEAR [facility] Comment on above: Performed By: #### U AMIC ####[facility] [address]fhlzxs[address] [place] [address]Dr. Ivette Hernandez Color (U) LT. YELLOW Normal YELLOW [facility] Comment on above: Performed By: #### U AMIC ####[facility] Guerxtptwe[address] [place] [address]Dr. Ivette Hernandez Crystals LM Nom (Urine sed) NONE SEEN Normal NONE SEEN [facility] Comment on above: Performed By: #### U AMIC ####[facility] Dbmiqqtfqp03[address] [place] [address]Dr. Ivette Hernandez Epithelial cells LM Ql (Urine sed) FEW Abnormal NONE SEEN /RARE [facility] Comment on above: Performed By: #### U AMIC ####[facility] Ieskqdknan04[address] [place] [address]Dr. Ivette Hernandez Glucose Ql (U) Negative Normal NEGATIVE [facility] Comment on above: Performed By: #### U AMIC ####[facility] Tsfriptbpd[address]345 [place] [address]Dr. Ivette Hernandez Hemoglobin Ql (U) SMALL Abnormal NEGATIVE The [facility] Comment on above: Performed By: #### U AMIC ####[facility] Bmxawdbmqu33[address] [place] [address]Dr. Ivette Hernandez Ketones Ql (U) Negative Normal NEGATIVE [facility] Comment on above: Performed By: #### U AMIC ####[facility] G[address]wlpjfr[address] [place], [place] [address]Dr. Ivette Hernandez LEUKOCYTES TRACE Abnormal NEGATIVE [facility] Comment on above: Performed By: #### U AMIC ####[facility] Qtuezmtstf[address] [place], [place] [address]Dr. Ivette Hernandez MUCOUS NONE SEEN Normal NONE SEEN [facility] Comment on above: Performed By: #### U AMIC ####[facility] Xsbsisaebi[address] [place], [place] [address]Dr. Ivette Hernandez Nitrite Ql (U) Negative Normal NEGATIVE [facility] Comment on above: Performed By: #### U AMIC ####[facility] Vatfcukluz[address] [place], [place] [address]Dr. Ivette Hernandez pH (U) 7.5 [pH] Normal 5-9 [facility] Comment on above: Performed By: #### U AMIC ####[facility] Gwcwbiiwic2703 [place] [address]Dr. Ivette Hernandez RBC 0-2 Normal 0-2 [facility] Comment on above: Performed By: #### U AMIC ####[facility] Ttoftkfadu8244 [place] [address]Dr. Ivette Hernandez SPEC GRAVITY 1.020 Normal 1.005-<=1.0 25 [facility] Comment on above: Performed By: #### U AMIC ####[facility] Wcelkapker[address] [place] [address]Dr. Cherjun David UA PROTEIN 300 mg/dl Abnormal NEGATIVE/ TRACE [facility] Comment on above: Performed By: #### U AMIC ####[facility] Lhwkgitqdg6499 [place] [address]Dr. Ivette Hernandez Urobilinogen Qn (U) 0.2 {Mack'U}/dL Normal 0.2 - 1. 0 [facility] Comment on above: Performed By: #### U AMIC ####[facility] Lpzzeifnqe[address] [place] [address]Dr. Ivette Hernandez WBC 5-10 Abnormal NONE SEEN [facility] Comment on above: Performed By: #### U AMIC ####[facility] Refmidtnzi68[address] [place] [address]Dr. Ivette Hernandez XR CHEST 1 Von 09-06-2022 XR CHEST 1 V Normal [facility] PROF CHEM 8 (BAS METB)on Anion gap [Moles/Vol] 12.3 mmol/L Normal [facility] Comment on above: Performed By: #### B MP ####[facility] Xiuwrzwmbw5[address] [place] [address]Dr. Ivette Hernandez Calcium [Mass/Vol] 9.4 mg/dL Normal 8.5-10.1 [facility] Comment on above: Performed By: #### B MP ####[facility] Ephmofnffu16[address] [place] [address]Dr. Ivette Hernandez Chloride [Moles/Vol] 105 mmol/L Normal 98-107 [facility] Comment on above: Performed By: #### B MP ####[facility] Ssguukqvhi[address]47 [place] [address]Dr. Ivette Hernandez CO2 [Moles/Vol] 30.2 mmol/L Normal 21.0-32.0 [facility] Comment on above: Performed By: #### B MP ####[facility] Qasiorgvcc2157 [place] [address]Dr. Ivette Hernandez Creatinine [Mass/Vol] 2.66 mg/dL Critically high 0.55-1.02 [facility] Comment on above: Performed By: #### B MP ####[facility] Otormytfxf38[address] [place] [address]Dr. Ivette Hernandez EGFR-AF KUWAITI 21 mL/min/1.73m2 Critically low >=60 [facility] Comment on above: Performed By: #### B MP ####[facility] Azydvjxhzf87[address] [place] [address]Dr. Ivette Hernandez EGFR-NON AF [place]I 18 mL/min/1.73m2 Critically low >=60 [facility] Comment on above: Performed By: #### B MP ####[facility] Ggocctgnpl4876 [place] [address]Dr. Ivette Hernandez Glucose [Mass/Vol] 126 mg/dL Critically high 74-106 [facility] Comment on above: Performed By: #### B MP ####[facility] Wkkrtgcxnz68[address] [place] [address]Dr. Ivette Hernandez Potassium [Moles/Vol] 4.5 mmol/L Normal 3.5-5.1 [facility] Comment on above: Performed By: #### B MP ####[facility] Cyiqdtysbf[address] [place], [place] [address]Dr. Ivette Hernandez Sodium [Moles/Vol] 143 mmol/L Normal 136-145 [facility] Comment on above: Performed By: #### B MP ####[facility] Grpfomfejl0126 [place] [address]Dr. Ivette Hernandez Urea nitrogen [Mass/Vol] 55.0 mg/dL Critically high 7.0-18.0 [facility] Comment on above: Performed By: #### B MP ####[facility] Jxvqozkmog33[address] [place] [address]Dr. Ivette Hernandez Urea nitrogen/Creatinine [Mass ratio] 20.7 mg/mg Normal [facility] Comment on above: Performed By: #### B MP ####[facility] Reiswosjrg[address] [place] [id number]. Ivette Hernandez Office Visiton 07-06-2022 Follow-up visit [id number] Maria G Hagen 1950 F Date Provider Department Center 07/06/2022 Wilmer-SILVA MAXWELL [facility] Family History Problem Relation Age of Onset Stroke Mother Hypertension Mother Heart attack Father Hypertension Sister Heart attack Sister Heart attack Brother Family Status - Relation Status Age at Mother Father Sister Brother Level of Service:27940 [place] OFFICE/OUTPATIENT ESTABLISHED MOD MDM 30-39 MIN Reason for Visit and Comments: Congestive Heart Failure [127] Atrial Fibrillation [80] Normal [facility] METANEPHRINES PLASMA FREEon 06-24-2022 Metanephrine, Pl 16.5 pg/mL Normal 0.0-88.0 [facility] Comment on above: Performed By: #### M ETANPF ####[facility] Htybsijhes28[address] [place] [address]Dr. Ivette Hernandez Normetanephrine, Pl 67.2 pg/mL Normal 0.0-285.2 [facility] Comment on above: Performed By: #### M ETANPF ####[facility] Ulswczzthh2043 [place] [address]Dr. Ivette Hernandez ALDOSTERONE: RENIN RATIOon 0 06-20-2022 Aldos/Renin Ratio 12.0 Normal 0.0-30.0 [facility] Comment on above: Result Comment: Unit s: ng/dL per ng/mL/hr Performed By: #### A LDOREN ####[facility] Yylxzcigaq63[address] [place] [id number]. Ivette Hernandez Aldosterone 3.8 ng/dL Normal 0.0-30.0 [facility] Comment on above: Performed By: #### A LDOREN ####[facility] Ktjgbfpjnq3538 [place] [address]Dr. Ivette Hernandez Renin Activity, Plasma 0.316 ng/mL/hr Normal 0.167-5.3 80 [facility] Comment on above: Performed By: #### A LDOREN ####[facility] Xidcqtcuew2680 [place] [id number]. Ivette Hernandez CORTISOLon 06-16-2022 Cortisol 2.7 ug/dL Normal [facility] Comment on above: Result Comment: Too isol AM 6.2 - 19.4 Cortisol PM 2.3 - 11.9 Performed By: #### C KEYLA ####[facility] Aysugxdxhd4312 [place], [place] [address]Xc. Ivette Hernandez URINALYSISOrdered By: Iwona suárez on [...] PM) Normal Negative [facility] UA Auto SS [place].plasma/[place] .RBC (Bld) [Mass ratio] 4-20 /HPF Normal [...] PM) Invalid Interpretation Code 1.005 - 1.030 [facility] UA Auto SS UA Spec Desc Random Urine (06/10/22 12:20 PM) Normal [facility] UA Auto SS Urobilinogen Qn (U) [id number] {Mack'U}/dL Normal 0.0 - 1.0 EU/dL [facility] UA Auto SS WBC Auto Ql (U) 2+ *ABN* (06/10/22 12:20 PM) Invalid Interpretation Code Negative [facility] UA Auto SS WBC LM.HPF (Urine sed) [#/Area] /[HPF] Invalid Interpretation Code 0-5/HPF [facility] UA Auto SS CT ABD/PELV W CONon 05-06-19 CT ABD/PELV W CON Normal [facility] CREATININEon 05-05-2022 Creatinine [Mass/Vol] 1.49 mg/dL Critically high 0.55-1.02 [facility] Comment on above: Performed By: #### C BENITA ####[facility] Anczcdpklp[address] [place], [place] [address]DrJesse Hernandez EGFR-AF KUWAITI 42 mL/min/1.73m2 Critically low >=60 [facility] Comment on above: Performed By: #### C BNEITA ####[facility] [address]osukyso[address] [place], [place] [address]DrJesse Hernandez EGFR-NON AF [place]UWAITI 34 mL/min/1.73m2 Critically low >=60 [facility] Comment on above: Performed By: #### C BEINTA ####[facility] V[address]atsixuok[address] [place], [place] [address]DrJesse Hernandez PROF CHEM 8 (BAS METB)on Anion gap [Moles/Vol] 12.6 mmol/L Normal [facility] Comment on above: Performed By: #### B MP ####[facility] Gjqhlpmldg[address] [place], [place] [address]DrJesse Hernandez Calcium [Mass/Vol] 8.0 mg/dL Critically low 8.5-10.[address] [facility] Comment on above: Performed By: #### B MP ####[facility] Wwxkowodgr[address] [place], [place] [address]Dr. Ivette Hernandez Chloride [Moles/Vol] 103 mmol/L Normal 98-107 [facility] Comment on above: Performed By: #### B MP ####[facility] Echcfssusu38[address] [place] [address]Dr. Ivette Hernandez CO2 [Moles/Vol] 28.7 mmol/L Normal 21.0-32.0 [facility] Comment on above: Performed By: #### B MP ####[facility] Wsthhtykyv0854 [place] [address]Dr. Ivette Hernandez Creatinine [Mass/Vol] 1.54 mg/dL Critically high 0.55-1.02 [facility] Comment on above: Performed By: #### B MP ####[facility] Mziidtckkn[address]19 [place] [address]Dr. Ivette Hernandez EGFR-AF KUWAITI 40 mL/min/1.73m2 Critically low >=60 [facility] Comment on above: Performed By: #### B MP ####[facility] Okzitbkmzr6403 [place] [address]Dr. Ivette David EGFR-NON AF [place]I 33 mL/min/1.73m2 Critically low >=60 [facility] Comment on above: Performed By: #### B MP ####[facility] Fhwpxwrapp4338 [place] [address]Dr. Ivette Hernandez Glucose [Mass/Vol] 126 mg/dL Critically high 74-106 [facility] Comment on above: Performed By: #### B MP ####[facility] Zgtuvzzkwe20[address] [place] [address]Dr. Ivette Hernandez Potassium [Moles/Vol] 3.3 mmol/L Critically low 3.5-5.1 [facility] Comment on above: Performed By: #### B MP ####[facility] Mepketviua4899 [place] [address]Dr. Ivette Hernandez Sodium [Moles/Vol] 141 mmol/L Normal 136-145 [facility] Comment on above: Performed By: #### B MP ####[facility] Kepyiikvlh2532 [place] [address]Dr. Ivette Hernandez Urea nitrogen [Mass/Vol] 21.0 mg/dL Critically high 7.0-18.0 [facility] Comment on above: Performed By: #### B MP ####[facility] Bxwrebndgu7159 [place] [address]Dr. Ivette David Urea nitrogen/Creatinine [Mass ratio] 13.6 mg/mg Normal [facility] Comment on above: Performed By: #### B MP ####[facility] Gfxjyssvzp0194 [place] [address]Dr. Ivette David CBC AUTO DIFFon 04-13-2022 BASO # 0.0 103/ul Normal 0.0-0.1 [facility] Comment on above: Performed By: #### C BC ####[facility] Tzzcwpfqqx33[address] [place] [address]Dr. Cherjun Hernandez Basophils/100 WBC (Bld) 0.3 % Normal 0.2-2.0 [facility] Comment on above: Performed By: #### C BC ####[facility] Csruqqtvxg[address] [place] [address]Dr. Ivette David EO # 0.3 103/ul Normal 0.0-0.7 [facility] Comment on above: Performed By: #### C BC ####[facility] Pkaolygkcd10[address] [place] [address]Dr. Ivette David Eosinophils/100 WBC (Bld) 4.3 % Normal 0.9-7.0 [facility] Comment on above: Performed By: #### C BC ####[facility] Iupijynzhg4537 [place] [address]Dr. Ivette Hernandez Erythrocyte distribution width (RBC) [Ratio] 14.2 % Normal 11.0-15.0 [facility] Comment on above: Performed By: #### C BC ####[facility] Shofrzugjs65[address] [place] [address]Dr. Ivette Hernandez Hematocrit (Bld) [Volume fraction] 26.2 % Critically low 36.0-48.0 [facility] Comment on above: Performed By: #### C BC ####[facility] Zyuyjehcxf1579 [place] [id number]. Ivette Hernandez Hemoglobin (Bld) [Mass/Vol] 8.0 g/dL Critically low 12.0-16.0 [facility] Comment on above: Performed By: #### C BC ####[facility] Dwnzqcbrah3[address] [place] [id number]. Ivette Hernandez IG # 0.03 10e3/ul Normal 0.00-0.03 [facility] Comment on above: Performed By: #### C BC ####[facility] Fuwprxalgf3685 [place] [address]Dr. Ivette Hernandez IG % 0.5 % Normal 0.0-0.5 [facility] Comment on above: Performed By: #### C BC ####[facility] Khqsmdnikw1040 [place] [address]Dr. Cherjun Hernandez LYMPH # 2.2 103/ul Normal 1.2-3.8 [facility] Comment on above: Performed By: #### C BC ####[facility] Pjtdqhtcnk5758 [place] [address]Dr. Ivette Hernandez Lymphocytes/100 WBC (Bld) 35.5 % Normal 20.5-60.0 [facility] Comment on above: Performed By: #### C BC ####[facility] Fjbohtmhgu5262 [place] [address]Dr. Cherjun Hernandez MANUAL DIFF REQ NO Normal [facility] Comment on above: Performed By: #### C BC ####[facility] Xgkxypnjvz4186 [place] [address]Dr. Ivette Hernandez MCH (RBC) [Entitic mass] 28.0 pg Normal 26.7-34.0 [facility] Comment on above: Performed By: #### C BC ####[facility] Ghildpqgis[address] [place], [place] [address]Dr. Ivette Hernandez MCHC (RBC) [Mass/Vol] 30.5 g/dL Normal 29.9-35.2 [facility] Comment on above: Performed By: #### C BC ####[facility] Aqeisrpdfi4788 [place] [id number]. Ivette Hernandez MCV (RBC) [Entitic vol] 91.6 fL Normal 81.0-99.0 [facility] Comment on above: Performed By: #### C BC ####[facility] Irggcfzmiy4297 [place] [address]Dr. Ivette Hernandez MONO # 0.5 103/ul Normal 0.3-0.8 [facility] Comment on above: Performed By: #### C BC ####[facility] Ycgldepwwb4301 [place] [address]Dr. Ivette Hernandez Monocytes/100 WBC (Bld) 8.2 % Normal 1.7-12.0 [facility] Comment on above: Performed By: #### C BC ####[facility] Tlrgkebmxc[address] [place], [place] [address]Dr. Ivette Hernandez NEUT # 3.2 103/ul Normal 1.4-6.5 [facility] Comment on above: Performed By: #### C BC ####[facility] [address]kvhuzxu[address] [place], [place] [address]Dr. Ivette Hernandez Neutrophils/100 WBC (Bld) 51.2 % Normal 43.0-75.0 [facility] Comment on above: Performed By: #### C BC ####[facility] Yndzdzucug2187 [place] [address]Dr. Ivette Hernandez Platelet mean volume (Bld) [Entitic vol] 9.8 fL Normal 9.5-13.5 [facility] Comment on above: Performed By: #### C BC ####[facility] Lyvefusnzg4984 [place] [id number]. Ivette Hernandez PLT 168 103/ul Normal 150-450 [facility] Comment on above: Performed By: #### C BC ####[facility] Ujipizjges40[address] [place], [place] [address]Dr. Ivette Hernandez RBC 2.86 106/ul Critically low 4.20-5.40 [facility] Comment on above: Performed By: #### C BC ####[facility] Etpcdmiwqm1745 [place] [address]Dr. Ivette Hernandez WBC 6.2 103/ul Normal 4.0-11.0 [facility] Comment on above: Performed By: #### C BC ####[facility] Ebewjudycx3130 [place] [address]DrJesse Hernandez Office Visiton 04-13-2022 Follow-up visit [id number] Maria G Hagen 1950 F Date Provider Department Center 04/13/2022 MADI MITCHELL [facility] Family History Problem Relation Age of Onset Stroke Mother Hypertension Mother Heart attack Father Hypertension Sister Heart attack Sister Heart attack Brother Family Status - Relation Status Age at Mother Father Sister Brother Level of Service:08582 [place] OFFICE/OUTPATIENT ESTABLISHED MOD MDM 30-39 MIN Reason for Visit and Comments: Congestive Heart Failure [127] Atrial Fibrillation [80] Normal [facility] POINT OF CARE GLUCOSEon 04-02 Glucose [Mass/Vol] 140 mg/dL Critically high 74-106 [facility] Comment on above: Performed By: #### P OCGLUC ####[facility] Zjntzvxxcn1050 [place] [address]Dr. Ivette Hernandez PROF CHEM 8 (BAS METB)on Anion gap [Moles/Vol] 7.9 mmol/L Normal [facility] Comment on above: Performed By: #### B MP ####[facility] Uuyxqlwplh4171 [place] [address]DrJesse Hernandez Calcium [Mass/Vol] 7.9 mg/dL Critically low 8.5-10.1 [facility] Comment on above: Performed By: #### B MP ####[facility] Ckisrqcslr3330 [place] [address]Dr. Ivette Hernandez Chloride [Moles/Vol] 106 mmol/L Normal 98-107 [facility] Comment on above: Performed By: #### B MP ####[facility] Wwojrndybu3063 [place] [address]Dr. Ivette Hernandez CO2 [Moles/Vol] 32.0 mmol/L Normal 21.0-32.0 [facility] Comment on above: Performed By: #### B MP ####[facility] Raeaokumtq0283 [place] [id number]. Ivette Hernandez Creatinine [Mass/Vol] 1.67 mg/dL Critically high 0.55-1.02 [facility] Comment on above: Performed By: #### B MP ####[facility] Ipzjhbwrgn2610 [place] [address]Dr. Cherjun David EGFR-AF KUWAITI 36 mL/min/1.73m2 Critically low >=60 [facility] Comment on above: Performed By: #### B MP ####[facility] Slaihafqen5186 [place] [address]Dr. Cherjun David EGFR-NON AF [place]I 30 mL/min/1.73m2 Critically low >=60 [facility] Comment on above: Performed By: #### B MP ####[facility] Bifkgczcib9729 [place] [id number]. Ivette Hernandez Glucose [Mass/Vol] 91 mg/dL Normal 74-106 [facility] Comment on above: Performed By: #### B MP ####[facility] Wufuxcvjym4252 [place] [address]Dr. Ivette Hernandez Potassium [Moles/Vol] 3.9 mmol/L Normal 3.5-5.1 [facility] Comment on above: Performed By: #### B MP ####[facility] Cdvffuoyhw7640 [place] [address]Dr. Ivette Hernandez Sodium [Moles/Vol] 142 mmol/L Normal 136-145 [facility] Comment on above: Performed By: #### B MP ####[facility] Ceogvjmcsx0806 [place] [id number]. Ivette Hernandez Urea nitrogen [Mass/Vol] 26.0 mg/dL Critically high 7.0-18.0 [facility] Comment on above: Performed By: #### B MP ####[facility] Vjufckorzz8917 [place] [id number]. Ivette Hernandez Urea nitrogen/Creatinine [Mass ratio] 15.6 mg/mg Normal [facility] Comment on above: Performed By: #### B MP ####[facility] Vmnznpniot[address] [place], [place] [address]Dr. Ivette Hernandez CBC AUTO DIFFon 04-12-2022 BASO # 0.0 103/ul Normal 0.0-0.1 [facility] Comment on above: Performed By: #### C BC ####[facility] Lmloyvtdwt[address] [place], [place] [address]Dr. Ivette Hernandez Basophils/100 WBC (Bld) 0.5 % Normal 0.2-2.0 [facility] Comment on above: Performed By: #### C BC ####[facility] Rdnmyonznn310[address] [place], [place] [address]Dr. Ivette Hernandez EO # 0.3 103/ul Normal 0.0-0.7 [facility] Comment on above: Performed By: #### C BC ####[facility] Elzoolgxkh192[address] [place], [place] [address]Dr. Ivette Hernandez Eosinophils/100 WBC (Bld) 4.4 % Normal 0.9-7.0 [facility] Comment on above: Performed By: #### C BC ####[facility] Rpczagetoo[address] [place], [place] [address]Dr. Ivette Hernandez Erythrocyte distribution width (RBC) [Ratio] 14.2 % Normal 11.0-15.0 [facility] Comment on above: Performed By: #### C BC ####[facility] Xojsbylnfa7[address] [place], [place] [address]Dr. Ivette Hernandez Hematocrit (Bld) [Volume fraction] 25.9 % Critically low 36.0-48.0 [facility] Comment on above: Performed By: #### C BC ####[facility] Jklknnrkug[address] [place], [place] [address]Dr. Ivette Hernandez Hemoglobin (Bld) [Mass/Vol] 8.0 g/dL Critically low 12.0-16.0 [facility] Comment on above: Performed By: #### C BC ####[facility] Rswoixcwvr84[address] [place], [place] [address]Dr. Ivette Hernandez IG # 0.03 10e3/ul Normal 0.00-0.03 [facility] Comment on above: Performed By: #### C BC ####[facility] Sczkkaubtr7479 [place] [address]Dr. Ivette Hernandez IG % 0.5 % Normal 0.0-0.5 [facility] Comment on above: Performed By: #### C BC ####[facility] Zeaglldemu1423 [place] [address]DrJesse Hernandez LYMPH # 2.1 103/ul Normal 1.2-3.8 [facility] Comment on above: Performed By: #### C BC ####[facility] Brkkrhbyec8638 [place] [address]DrJesse Hernandez Lymphocytes/100 WBC (Bld) 35.0 % Normal 20.5-60.0 [facility] Comment on above: Performed By: #### C BC ####[facility] Atgtmmiyha[address] [place], [place] [address]DrJesse Hernandez MANUAL DIFF REQ NO Normal [facility] Comment on above: Performed By: #### C BC ####[facility] Gzpbcyxnlk1490 [place] [address]DrJesse Cherjun Hernandez MCH (RBC) [Entitic mass] 28.3 pg Normal 26.7-34.0 [facility] Comment on above: Performed By: #### C BC ####[facility] Ihhgnzakzb5977 [place] [address]DrJesse Hernandez MCHC (RBC) [Mass/Vol] 30.9 g/dL Normal 29.9-35.2 [facility] Comment on above: Performed By: #### C BC ####[facility] Jvirzxubwu1682 [place] [address]DrJesse Hernandez MCV (RBC) [Entitic vol] 91.5 fL Normal 81.0-99.0 [facility] Comment on above: Performed By: #### C BC ####[facility] Snigtovvbo[address] [place], [place] [address]DrJesse Hernandez MONO # 0.4 103/ul Normal 0.3-0.8 [facility] Comment on above: Performed By: #### C BC ####[facility] Skpjpulfgo1145 [place] [id number]. Ivette Hernandez Monocytes/100 WBC (Bld) 7.1 % Normal 1.7-12.0 [facility] Comment on above: Performed By: #### C BC ####[facility] Awsxrbhahq2931 [place] [id number]. Ivette Hernandez NEUT # 3.1 103/ul Normal 1.4-6.5 [facility] Comment on above: Performed By: #### C BC ####[facility] Eybwxculwb8137 [place] [address]Dr. Ivette Hernandez Neutrophils/100 WBC (Bld) 52.5 % Normal 43.0-75.0 [facility] Comment on above: Performed By: #### C BC ####[facility] Jeyeyggjkd1676 [place] [id number]. Ivette Hernandez Platelet mean volume (Bld) [Entitic vol] 9.6 fL Normal 9.5-13.5 [facility] Comment on above: Performed By: #### C BC ####[facility] Xabuonmxqy0940 [place] [address]Dr. Ivette Hernandez PLT 163 103/ul Normal 150-450 [facility] Comment on above: Performed By: #### C BC ####[facility] Clrvbcrmxo3756 [place] [address]Dr. Ievtte Hernandez RBC 2.83 106/ul Critically low 4.20-5.40 [facility] Comment on above: Performed By: #### C BC ####[facility] Ceczebcvwf0033 [place] [address]Dr. Ivette Hernandez WBC 5.9 103/ul Normal 4.0-11.0 [facility] Comment on above: Performed By: #### C BC ####[facility] Rlazxqwzqt4891 [place] [id number]. Ivette Hernandez CULTURE URINEon 04-12-2022 CULTURE URINE Normal [facility] Comment on above: Performed By: #### U RCX ####[facility] Ovbupozfhf4163 [place] [address]Dr. Ivette Hernandez POINT OF CARE GLUCOSEon 04-02 Glucose [Mass/Vol] 106 mg/dL Normal 74-106 [facility] Comment on above: Performed By: #### P OCGLUC ####[facility] Qvmxvniaao[address] [place], [place] [address]Dr. Ivette Hernandez Glucose [Mass/Vol] 212 mg/dL Critically high 74-106 [facility] Comment on above: Performed By: #### P OCGLUC ####[facility] Qxkwbczuqa56[address] [place], [place] [address]Dr. Ivette Hernandez Glucose [Mass/Vol] 136 mg/dL Critically high 74-106 [facility] Comment on above: Performed By: #### P OCGLUC ####[facility] Voskxjfadt[address] [place], [place] [address]Dr. Ivette Hernandez PROF CHEM 8 (BAS METB)on Anion gap [Moles/Vol] 9.6 mmol/L Normal [facility] Comment on above: Performed By: #### B MP ####[facility] Ghvtepuchx659[address] [place], [place] [address]Dr. Ivette Hernandez Calcium [Mass/Vol] 7.5 mg/dL Critically low 8.5-10.[address] [facility] Comment on above: Performed By: #### B MP ####[facility] Msxbiypwta435[address] [place], [place] [address]Dr. Ivette Hernandez Chloride [Moles/Vol] 106 mmol/L Normal 98-107 [facility] Comment on above: Performed By: #### B MP ####[facility] Jqjielshcr96[address] [place], [place] [address]Dr. Ivette Hernandez CO2 [Moles/Vol] 29.3 mmol/L Normal 21.0-32.0 [facility] Comment on above: Performed By: #### B MP ####[facility] Mgskjuqhhb36[address] [place], [place] [address]Dr. Ivette Hernandez Creatinine [Mass/Vol] 1.48 mg/dL Critically high 0.55-1.02 [facility] Comment on above: Performed By: #### B MP ####[facility] Pxconwnasd6630 [place] [address]Dr. Ivette Hernandez EGFR-AF [place]I 42 mL/min/1.73m2 Critically low >=60 [facility] Comment on above: Performed By: #### B MP ####[facility] Xxzitqrhgo5445 [place] [id number]. Ivette Hernandez EGFR-NON AF [place] 35 mL/min/1.73m2 Critically low >=60 [facility] Comment on above: Performed By: #### B MP ####[facility] Tpxugimhgs6464[address] [place], [place] [address]Dr. Ivette Hernandez Glucose [Mass/Vol] 87 mg/dL Normal 74-106 [facility] Comment on above: Performed By: #### B MP ####[facility] Nyjzhdrdmy[address] [place], [place] [address]Dr. Ivette Hernandez Potassium [Moles/Vol] 3.9 mmol/L Normal 3.5-5.1 [facility] Comment on above: Performed By: #### B MP ####[facility] Lskamberno[address] [place], [place] [address]Dr. Ivette Hernandez Sodium [Moles/Vol] 141 mmol/L Normal 136-145 [facility] Comment on above: Performed By: #### B MP ####[facility] Wcjrwjfgon[address] [place], [place] [address]Dr. Ivette Hernandez Urea nitrogen [Mass/Vol] 24.0 mg/dL Critically high 7.0-18.0 [facility] Comment on above: Performed By: #### B MP ####[facility] Pobgkymaza294[address] [place], [place] [address]Dr. Ivette Hernandez Urea nitrogen/Creatinine [Mass ratio] 16.2 mg/mg Normal [facility] Comment on above: Performed By: #### B MP ####[facility] Zdrzohcgas7[address] [place], [place] [address]Dr. Ivette Hernandez CBC AUTO DIFFon 12-10-2022 BASO # 0.0 103/ul Normal 0.0-0.1 [facility] Comment on above: Performed By: #### C BC ####[facility] Dpwxnxlckd1762 [place] [address]Dr. Ivette Hernandez Basophils/100 WBC (Bld) 0.3 % Normal 0.2-2.0 [facility] Comment on above: Performed By: #### C BC ####[facility] Wxpnkcomjc1230 [place] [address]Dr. Ivette David EO # 0.2 103/ul Normal 0.0-0.7 [facility] Comment on above: Performed By: #### C BC ####[facility] Txcgjvfkyu[address] [place], [place] [address]Dr. Ivette David Eosinophils/100 WBC (Bld) 2.8 % Normal 0.9-7.0 [facility] Comment on above: Performed By: #### C BC ####[facility] Bqhbildbvb[address] [place], [place] [address]Dr. Ivette Hernandez Erythrocyte distribution width (RBC) [Ratio] 14.4 % Normal 11.0-15.0 [facility] Comment on above: Performed By: #### C BC ####[facility] Unpacpzwbg4607 [place] [address]Dr. Ivette Hernandez Hematocrit (Bld) [Volume fraction] 24.9 % Critically low 36.0-48.0 [facility] Comment on above: Performed By: #### C BC ####[facility] Bbcefdhzxw7543 [place] [address]Dr. Ivette Hernandez Hemoglobin (Bld) [Mass/Vol] 7.7 g/dL Critically low 12.0-16.0 [facility] Comment on above: Performed By: #### C BC ####[facility] Fknbsoxpne2298 [place] [address]Dr. Cherjun David IG # 0.02 10e3/ul Normal 0.00-0.03 [facility] Comment on above: Performed By: #### C BC ####[facility] Waopqqmaqb2978 [place] [id number]. Cherjun Hernandez IG % 0.3 % Normal 0.0-0.5 [facility] Comment on above: Performed By: #### C BC ####[facility] Psominbcol9304 [place] [address]Dr. Ivette David LYMPH # 1.9 103/ul Normal 1.2-3.8 [facility] Comment on above: Performed By: #### C BC ####[facility] Ifhchnqgwb0363 [place] [address]Dr. Cherjun Hernandez Lymphocytes/100 WBC (Bld) 32.7 % Normal 20.5-60.0 [facility] Comment on above: Performed By: #### C BC ####[facility] Qqtyjgrytb9234 [place] [address]Dr. Cherjun Hernandez MANUAL DIFF REQ NO Normal [facility] Comment on above: Performed By: #### C BC ####[facility] Ffnzlozvrj9120 [place] [address]Dr. Ivette David MCH (RBC) [Entitic mass] 28.3 pg Normal 26.7-34.0 [facility] Comment on above: Performed By: #### C BC ####[facility] Mzyqeaeelc[address] [place], [place] [address]Dr. Ivette David MCHC (RBC) [Mass/Vol] 30.9 g/dL Normal 29.9-35.2 [facility] Comment on above: Performed By: #### C BC ####[facility] Zkypsmbhus0263 [place] [address]Dr. Ivette David MCV (RBC) [Entitic vol] 91.5 fL Normal 81.0-99.0 [facility] Comment on above: Performed By: #### C BC ####[facility] Zcmxcyfpvz[address] [place], [place] [address]Dr. Ivette Hernandez MONO # 0.5 103/ul Normal 0.3-0.8 [facility] Comment on above: Performed By: #### C BC ####[facility] K[address]uxxwfwib[address] [place], [place] [address]Dr. Ivette Hernandez Monocytes/100 WBC (Bld) 8.2 % Normal 1.7-12.0 [facility] Comment on above: Performed By: #### C BC ####[facility] Hpfesofqij1015 [place] [address]Dr. Ivette Hernandez NEUT # 3.2 103/ul Normal 1.4-6.5 [facility] Comment on above: Performed By: #### C BC ####[facility] Iwqlfuzmha5711 [place] [address]Dr. Ivette Hernandez Neutrophils/100 WBC (Bld) 55.7 % Normal 43.0-75.0 [facility] Comment on above: Performed By: #### C BC ####[facility] Wxjfvaanpa7748 [place] [address]Dr. Ivette Hernandez Platelet mean volume (Bld) [Entitic vol] 9.7 fL Normal 9.5-13.5 [facility] Comment on above: Performed By: #### C BC ####[facility] Ldddhaqmsl2655 [place] [address]Dr. Ivette Hernandez PLT 139 103/ul Critically low 150-450 [facility] Comment on above: Performed By: #### C BC ####[facility] Azjwhoubpe2077 [place] [address]Dr. Ivette Hernandez RBC 2.72 106/ul Critically low 4.20-5.40 [facility] Comment on above: Performed By: #### C BC ####[facility] Fxtkxvclhq5716 [place] [address]Dr. Ivette Hernandez WBC 5.8 103/ul Normal 4.0-11.0 [facility] Comment on above: Performed By: #### C BC ####[facility] Qpnmbaxzei4616 [place] [address]Dr. Ivette Hernandez IRON AND TIBCon 04-11-2022 % SATURATION 10.4 % Normal [facility] Comment on above: Performed By: #### B 12FOL, FETIBC ####[facility] Tmoazjcdra7737 [place] [address]Dr. Ivette Hernandez Iron [Mass/Vol] 19.0 ug/dL Critically low 50.0-170.0 [facility] Comment on above: Performed By: #### B 12FORoxie FETIBC ####[facility] Gcrleciycx6068 [place] [id number]. Ivette Hernandez TIBC DIRECT 182.0 ug/dL Critically low 250.0-450.0 [facility] Comment on above: Performed By: #### B 12FORoxie FETIBC ####[facility] Lpwyckiewn0808 [place] [id number]. Ivette Hernandez POINT OF CARE GLUCOSEon 04-02 Glucose [Mass/Vol] 124 mg/dL Critically high 74-106 [facility] Comment on above: Performed By: #### P OCGLUC ####[facility] Twjcqrmnyx4865 [place] [address]Dr. Ivette Hernandez Glucose [Mass/Vol] 128 mg/dL Critically high 74-106 [facility] Comment on above: Performed By: #### P OCGLUC ####[facility] Volipjhxkn6838 [place] [address]Dr. Ivette Hernandez Glucose [Mass/Vol] 144 mg/dL Critically high 74-106 [facility] Comment on above: Performed By: #### P OCGLUC ####[facility] Lylbzlifyz9230 [place] [address]Dr. Ivette Hernandez PROF CHEM 8 (BAS METB)on Anion gap [Moles/Vol] 9.7 mmol/L Normal [facility] Comment on above: Performed By: #### B MP ####[facility] Twvshaqvjl2946 [place] [address]Dr. Ivette Hernandez Calcium [Mass/Vol] 6.9 mg/dL Critically low 8.5-10.[address] [facility] Comment on above: Performed By: #### B MP ####[facility] Aqmtigyxlj4794 [place] [address]Dr. Ivette Hernandez Chloride [Moles/Vol] 109 mmol/L Critically high 98-107 [facility] Comment on above: Performed By: #### B MP ####[facility] Qrxnqjztxt8986 [place] [id number]. Cherjun David CO2 [Moles/Vol] 29.2 mmol/L Normal 21.0-32.0 [facility] Comment on above: Performed By: #### B MP ####[facility] [address]pr[address]vwc[address] [place] [id number]. Ivette Hernandez Creatinine [Mass/Vol] 1.41 mg/dL Critically high 0.55-1.02 [facility] Comment on above: Performed By: #### B MP ####[facility] Nzlxoinsfi15[address] [place] [id number]. Ivette Hernandez EGFR-AF KUWAITI 44 mL/min/1.73m2 Critically low >=60 [facility] Comment on above: Performed By: #### B MP ####[facility] Wanhctmjml[address] [place] [address]Dr. Ivette Hernandez EGFR-NON AF KUWAITI 37 mL/min/1.73m2 Critically low >=60 [facility] Comment on above: Performed By: #### B MP ####[facility] Fvxxyzyfja[address] [place], [place] [address]Dr. Ivette Hernandez Glucose [Mass/Vol] 95 mg/dL Normal 74-106 [facility] Comment on above: Performed By: #### B MP ####[facility] Cmdolhicrn87[address] [place] [address]Dr. Ivette Hernandez Potassium [Moles/Vol] 3.9 mmol/L Normal 3.5-5.1 [facility] Comment on above: Performed By: #### B MP ####[facility] Dyjuhtkdam25[address] [place] [id number]. Ivette Hernandez Sodium [Moles/Vol] 144 mmol/L Normal 136-145 [facility] [place] Comment on above: Performed By: #### B MP ####[facility] Aukrrivfxc8[address] [place] [address]Dr. Ivette Hernandez Urea nitrogen [Mass/Vol] 25.0 mg/dL Critically high 7.0-18.0 [facility] Comment on above: Performed By: #### B MP ####[facility] Xilgohmzcs[address] [place] [address]Dr. Cherjun Hernandez Urea nitrogen/Creatinine [Mass ratio] 17.7 mg/mg Normal [facility] Comment on above: Performed By: #### B MP ####[facility] Tzttpsrwkt3[address] [place] [address]Dr. Ivette Hernandez VIT B12 AND FOLATEon 022 Cobalamin (Vitamin B12) [Mass/Vol] 769.0 pg/mL Normal 193.0-986.0 [facility] Comment on above: Performed By: #### B 12FOL FETIBC ####[facility] Iviwyzfqxr[address] [place], [place] [address]Dr. Cherjun Hernandez FOLATE 22.60 ng/mL Normal 8.60-58.90 [facility] Comment on above: Performed By: #### Michel 12FOL FETIBC ####[facility] Rshxnfvrut[address] [place], [place] [address]Dr. Cherjun Hernandez CARDIAC CANDACE 3-6on 2 CK [Catalytic activity/Vol] 38 U/L Normal 26-192 [facility] Comment on above: Performed By: #### C MREP ####[facility] Zjntmlqbct[address] [place], [place] [address]Dr. Ivette David CK.MB [Mass/Vol] 0.75 ng/mL Normal <=3.60 [facility] Comment on above: Performed By: #### C MREP ####[facility] Ilhzzbfyzc[address] [place], [place] [address]Dr. Ivette Hernandez HSTROP 11.9 pg/mL Normal 4.0-51.3 [facility] Comment on above: Result Comment: CUT- OFF POINTS HAVE BEEN ESTABLISHED BASED ON THE FOURTH UNIVERSAL DEFINITIONS OF MYOCARDIALINFARCTION. THE UPPER REFERENCE LIMIT (URL) OF TROPONIN, DEFINED THE 99TH PERCENTILE OFcTnI DISTRIBUTION IN A REFERENCE POPULATION, HAS BEEN CONFIRMED THE DECISION THRESHOLDFOR LA DIAGNOSIS. Performed By: #### C MREP ####[facility] Ckqcwwhrhk6383 [place] [id number]. Ivette Hernandez CK [Catalytic activity/Vol] 38 U/L Normal 26-192 [facility] Comment on above: Performed By: #### C MREP ####[facility] Bvhpttqljx5595 [place] [id number]. Ivette Hernandez CK.MB [Mass/Vol] 0.11 ng/mL Normal <=3.60 [facility] Comment on above: Performed By: #### C MREP ####[facility] Nxcotjrcfv4968 [place] [id number]. Ivette Hernandez HSTROP 11.5 pg/mL Normal 4.0-51.3 [facility] Comment on above: Result Comment: CUT- OFF POINTS HAVE BEEN ESTABLISHED BASED ON THE FOURTH UNIVERSAL DEFINITIONS OF MYOCARDIALINFARCTION. THE UPPER REFERENCE LIMIT (URL) OF TROPONIN, DEFINED THE 99TH PERCENTILE OFcTnI DISTRIBUTION IN A REFERENCE POPULATION, HAS BEEN CONFIRMED THE DECISION THRESHOLDFOR LA DIAGNOSIS. Performed By: #### C MREP ####[facility] Wrzkawvvwr9[address] [place] [id number]. Ivette Hernandez CBC AUTO DIFFon 04-10-2022 BASO # 0.0 103/ul Normal 0.0-0.1 [facility] Comment on above: Performed By: #### C BC ####[facility] Jqlqyuedwg8464 [place] [id number]. Ivette Hernandez Basophils/100 WBC (Bld) 0.3 % Normal 0.2-2.0 [facility] Comment on above: Performed By: #### C BC ####[facility] Koplyfneqz7503 [place] [id number]. Ivette Hernandez EO # 0.1 103/ul Normal 0.0-0.7 [facility] Comment on above: Performed By: #### C BC ####[facility] Raxhllwiyp8285 [place] [id number]. Ivette Hernandez Eosinophils/100 WBC (Bld) 0.9 % Normal 0.9-7.0 [facility] Comment on above: Performed By: #### C BC ####[facility] Njfqwecrts9[address] [place] [address]Dr. Ivette Hernandez Erythrocyte distribution width (RBC) [Ratio] 14.5 % Normal 11.0-15.0 [facility] Comment on above: Performed By: #### C BC ####[facility] Osrhvprfbw9[address] [place] [address]Dr. Ivette Hernandez Hematocrit (Bld) [Volume fraction] 26.1 % Critically low 36.0-48.0 [facility] Comment on above: Performed By: #### C BC ####[facility] Ulzkudacnv6743 [place] [address]Dr. Ivette Hernandez Hemoglobin (Bld) [Mass/Vol] 8.0 g/dL Critically low 12.0-16.0 [facility] Comment on above: Performed By: #### C BC ####[facility] Gplwzjldrh[address] [place], [place] [address]Dr. Ivette Hernandez IG # 0.03 10e3/ul Normal 0.00-0.03 [facility] Comment on above: Performed By: #### C BC ####[facility] Bivnpylifr28[address] [place], [place] [address]Dr. Ivette Hernandez IG % 0.4 % Normal 0.0-0.5 [facility] Comment on above: Performed By: #### C BC ####[facility] Tggvguwdbk[address] [place], [place] [address]Dr. Ivette Hernandez LYMPH # 2.2 103/ul Normal 1.2-3.8 [facility] Comment on above: Performed By: #### C BC ####[facility] Gqxsraofjp57[address] [place], [place] [address]Dr. Ivette Hernandez Lymphocytes/100 WBC (Bld) 29.3 % Normal 20.5-60.0 [facility] Comment on above: Performed By: #### C BC ####[facility] Fnbvgkqtih7[address] [place], [place] [address]Dr. Ivette Hernandez MANUAL DIFF REQ NO Normal The [facility] Comment on above: Performed By: #### C BC ####[facility] Xdkwqawcgt2592 [place] [id number]. Ivette Hernandez MCH (RBC) [Entitic mass] 28.4 pg Normal 26.7-34.0 [facility] Comment on above: Performed By: #### C BC ####[facility] Lxratzyiub3358 [place] [id number]. Ivette Hernandez MCHC (RBC) [Mass/Vol] 30.7 g/dL Normal 29.9-35.2 [facility] Comment on above: Performed By: #### C BC ####[facility] Smqloqnthp8566 [place] [id number]. Ivette Hernandez MCV (RBC) [Entitic vol] 92.6 fL Normal 81.0-99.0 [facility] Comment on above: Performed By: #### C BC ####[facility] Kbqooqcums[address] [place], [place] [address]Dr. Ivette Hernandez MONO # 0.6 103/ul Normal 0.3-0.8 [facility] Comment on above: Performed By: #### C BC ####[facility] Mrutvmumfg1180 [place] [address]Dr. Ivette Hernandez Monocytes/100 WBC (Bld) 8.7 % Normal 1.7-12.0 [facility] Comment on above: Performed By: #### C BC ####[facility] Zqlugdaoie[address] [place], [place] [address]Dr. Ivette Hernandez NEUT # 4.5 103/ul Normal 1.4-6.5 [facility] Comment on above: Performed By: #### C BC ####[facility] Jczuisiroi[address] [place], [place] [address]Dr. Ivette David Neutrophils/100 WBC (Bld) 60.4 % Normal 43.0-75.0 [facility] Comment on above: Performed By: #### C BC ####[facility] Lgppyebxvx38[address] [place], [place] [address]Dr. Ivette Hernandez Platelet mean volume (Bld) [Entitic vol] 9.8 fL Normal 9.5-13.5 [facility] Comment on above: Performed By: #### C BC ####[facility] Fewfobjggu9898 [place], [place] [address]Gq. Ivette Hernandez PLT 139 103/ul Critically low 150-450 [facility] Comment on above: Performed By: #### C BC ####[facility] Znaunlzzvy7554 [place], [place] [address]Fa. Ivette Hernandez RBC 2.82 106/ul Critically low 4.20-5.40 The [facility] Comment on above: Performed By: #### C BC ####[facility] Xhiwsxiura3970 [place], [place] [address]Lc. Ivette Hernandez WBC 7.4 103/ul Normal 4.0-11.0 [facility] Comment on above: Performed By: #### C BC ####[facility] Loydharnck6446 [place], [place] [address]Sp. Ivette Hernandez CULTURE BLOODon 04-10-2022 Microscopic examination of blood, culture Culture Observations: NO GROWTH AT 5 DAYS. Normal [facility] Comment on above: Performed By: #### B LDCX2 ####[facility] Xcckjddqlt3374 [place], [place] [address]Zg. Ivette Hernandez Microscopic examination of blood, culture Culture Observations: NO GROWTH AT 5 DAYS. Normal [facility] Comment on above: Performed By: #### B LDCX1 ####[facility] Pyaylinusu[address] [place] [id number]. Ivette Hernandez Covid-19 PCR (CVDTB)on SARS-CoV-2 (COVID-19) RNA MARRY+probe Ql (Unsp spec) Not detected Normal NOT DETECTED [facility] Comment on above: Result Comment: When diagnostic [...] for this test is supported by the [employer] and [employer] Service's declaration that [...] be used). Performed By: #### C VDTB ####[facility] Komkzjbfdj07[address] [place], [place] [address]Dr. Ivette Hernandez ER URINE PROFILEon 2 Bilirubin Ql (U) Negative Normal NEGATIVE [facility] Comment on above: Performed By: #### SONNY MCKOY ####[facility] Kpgtgckwpt[address] [place], [place] [address]Dr. Ivette Hernandez Clarity (U) CLEAR Normal CLEAR [facility] Comment on above: Performed By: #### FIDENCIO MCKOYRO ####[facility] Bcutuyffzq8[address] [place], [place] [address]Dr. Ivette Hernandez Color (U) YELLOW Normal YELLOW [facility] Comment on above: Performed By: #### FIDENCIO MCKOYRO ####[facility] Jzkizxkggy[address] [place], [place] [address]Dr. Ivette Hernandez ERUAHD A micrscopic examina tion will be performed if indicated. Normal [facility] Comment on above: Performed By: #### FIDENCIO MCKOYRO ####[facility] Aczsqvgwdb85[address] [place], [place] [address]Dr. Ivette Hernandez Glucose Ql (U) Negative Normal NEGATIVE [facility] Comment on above: Performed By: #### FIDENCIO MCKOYRO ####[facility] Dsfttoedrt[address] [place], [place] [address]Dr. Ivette Hernandez Hemoglobin Ql (U) MODERATE Abnormal NEGATIVE [facility] Comment on above: Performed By: #### FIDENCIO MCKOYRO ####[facility] Utuxghlmau[address] [place], [place] [address]Dr. Ivette Hernandez Ketones Ql (U) TRACE Abnormal NEGATIVE [facility] Comment on above: Performed By: #### FIDENCIO MCKOYRO ####[facility] Ldiaqysbdt4630 [place] [address]Dr. Ivette Hernandez LEUKOCYTES MODERATE Abnormal NEGATIVE [facility] Comment on above: Performed By: #### FIDENCIO MCKOYRO ####[facility] Mwrvovixcl6548 [place] [address]Dr. Ivette Hernandez Nitrite Ql (U) Negative Normal NEGATIVE [facility] Comment on above: Performed By: #### Ata RONDON UMICRO ####[facility] Ztdbovnkek4287 [place] [address]Dr. Ivette Hernandez pH (U) 7.0 [pH] Normal 5-9 [facility] Comment on above: Performed By: #### FIDENCIO MCKOYRO ####[facility] Cjknvqnnrk[address] [place], [place] [address]Dr. Ivette Hernandez SPEC GRAVITY 1.020 Normal 1.005-<=1.0 25 [facility] Comment on above: Performed By: #### FIDENCIO MCKOYRO ####[facility] Tdynkvwgkh8[address] [place], [place] [address]Dr. Ivette Hernandez UA PROTEIN >300 Abnormal NEGATIVE/ TRACE [facility] Comment on above: Performed By: #### FIDENCIO MCKOYRO ####[facility] Iejrgzbrsc350[address] [place], [place] [address]Dr. Ivette Hernandez UR MICRO IND INDICATED Normal [facility] Comment on above: Performed By: #### FIDENCIO MCKOYRO ####[facility] Dkhrbxdegz13[address] [place], [place] [address]Dr. Ivette Hernandez Urobilinogen Qn (U) 0.2 {Mack'U}/dL Normal 0.2 - 1. 0 [facility] Comment on above: Performed By: #### FIDENCIO MCKOYRO ####[facility] Kikkmrlkyg[address] [place], [place] [address]Dr. Ivette Hernandez POINT OF CARE GLUCOSEon 12-0 Glucose [Mass/Vol] 164 mg/dL Critically high 74-106 [facility] Comment on above: Performed By: #### P OCGLUC ####[facility] Noedhzobsg1337 [place] [address]Dr. Ivette Hernandez Glucose [Mass/Vol] 123 mg/dL Critically high 74-106 [facility] Comment on above: Performed By: #### P OCGLUC ####[facility] Yvanywtvlc6674 [place] [address]Dr. Ivette Hernandez Glucose [Mass/Vol] 115 mg/dL Critically high 74-106 [facility] Comment on above: Performed By: #### P OCGLUC ####[facility] Ngnuxtxpiz8493 [place] [address]Dr. Ivette Hernandez PROF CHEM 8 (BAS METB)on Anion gap [Moles/Vol] 11.8 mmol/L Normal [facility] Comment on above: Performed By: #### B MP ####[facility] Tcaftgjjum64[address] [place], [place] [address]Dr. Ivette Hernandez Calcium [Mass/Vol] 6.5 mg/dL Critically low 8.5-10.[address] [facility] Comment on above: Performed By: #### B MP ####[facility] Egegyavcui1080[address] [place], [place] [address]Dr. Ivette Hernandez Chloride [Moles/Vol] 108 mmol/L Critically high 98-107 [facility] Comment on above: Performed By: #### B MP ####[facility] Osgqixmlin427[address] [place], [place] [address]Dr. Ivette Hernandez CO2 [Moles/Vol] 29.2 mmol/L Normal 21.0-32.0 [facility] Comment on above: Performed By: #### B MP ####[facility] Fdfzclefrx0[address] [place], [place] [address]Dr. Ivette Hernandez Creatinine [Mass/Vol] 1.61 mg/dL Critically high 0.55-1.02 [facility] Comment on above: Performed By: #### B MP ####[facility] Xmypwuwdsw5660[address] [place], [place] [address]Dr. Ivette Hernandez EGFR-AF KUWAITI 38 mL/min/1.73m2 Critically low >=60 [facility] Comment on above: Performed By: #### B MP ####[facility] Adrjyndcwa488[address] [place], [place] [address]Dr. Ivette Hernandez EGFR-NON AF [place]I 31 mL/min/1.73m2 Critically low >=60 [facility] Comment on above: Performed By: #### B MP ####[facility] Hilldqymop44[address] [place], [place] [address]Dr. Cherjun Hernandez Glucose [Mass/Vol] 107 mg/dL Critically high 74-106 [facility] Comment on above: Performed By: #### B MP ####[facility] Rxoworoiaw197[address] [place], [place] [address]Dr. Ivette Hernandez Potassium [Moles/Vol] 4.0 mmol/L Normal 3.5-5.1 [facility] Comment on above: Performed By: #### B MP ####[facility] Indcpvbbac079[address] [place], [place] [address]Dr. Ivette Hernandez Sodium [Moles/Vol] 145 mmol/L Normal 136-145 [facility] Comment on above: Performed By: #### B MP ####[facility] Adyyrpxdha63[address] [place], [place] [address]Dr. Cherjun David Urea nitrogen [Mass/Vol] 23.0 mg/dL Critically high 7.0-18.0 [facility] Comment on above: Performed By: #### B MP ####[facility] Rhlalpjvkz360[address] [place], [place] [address]Dr. Ivette Hernandez Urea nitrogen/Creatinine [Mass ratio] 14.3 mg/mg Normal [facility] Comment on above: Performed By: #### B MP ####[facility] Qiasvcbtga457[address] [place], [place] [address]Dr. Ivette Hernandez URINE MICROSCOPIC ONLYon BACTERIA MODERATE Abnormal NONE SEEN [facility] Comment on above: Performed By: #### E SONNY RONDON ####[facility] Cjcpevktet697[address] [place], [place] [address]Dr. Ivette Hernandez Bacteria identified Cx Nom (U) INDICATED Normal [facility] Comment on above: Performed By: #### Ata RONDON, UMICRO ####[facility] Vjqluyqtfv9141 [place] [address]Dr. Ivette Hernandez CAST NONE SEEN Normal NONE SEEN [facility] Comment on above: Performed By: #### Ata RONDON, UMICRO ####[facility] Gfobdwvali1479 [place] [address]Dr. Ivette Hernandez Crystals LM Nom (Urine sed) NONE SEEN Normal NONE SEEN [facility] Comment on above: Performed By: #### Ata RONDON UMICRO ####[facility] Ubjapboxie7517 [place] [address]Dr. Ivette Hernandez Epithelial cells LM Ql (Urine sed) RARE Normal NONE SEEN /RARE [facility] Comment on above: Performed By: #### Ata RONDON, UMICRO ####[facility] Tcgftkvruc[address] [place], [place] [address]Dr. Ivette Hernandez MUCOUS NONE SEEN Normal NONE SEEN [facility] Comment on above: Performed By: #### Ata RONDON UMICRO ####[facility] Cfxvkmptzx92[address] [place], [place] [address]Dr. Ivette Hernandez RBC NONE SEEN Abnormal 0-2 [facility] Comment on above: Performed By: #### Ata RONDON UMICRO ####[facility] Yaphcewlfp727[address] [place], [place] [address]Dr. Ivette Hernandez WBC 20-50 Abnormal NONE SEEN [facility] Comment on above: Performed By: #### Ata RONDON UMICRO ####[facility] Ffsxkqihwp25[address] [place], [place] [address]Dr. Ivette Hernandez XR CHEST 1 Von 04-10-2022 XR CHEST 1 V Normal [facility] CARDIAC CANDACE ADMITon 022 CK [Catalytic activity/Vol] 37 U/L Normal 26-192 [facility] Comment on above: Performed By: #### C MADM, BMP ####[facility] Ktgzrtwvgb49[address] [place], [place] [address]Dr. Ivette Hernandez CK.MB [Mass/Vol] 0.14 ng/mL Normal <=3.60 [facility] Comment on above: Performed By: #### C MYRNA PEREYRA ####[facility] Dpmribdpqn6433 [place] [address]Dr. Ivette Hernandez HSTROP 11.0 pg/mL Normal 4.0-51.3 [facility] Comment on above: Result Comment: CUT- OFF POINTS HAVE BEEN ESTABLISHED BASED ON THE FOURTH UNIVERSAL DEFINITIONS OF MYOCARDIALINFARCTION. THE UPPER REFERENCE LIMIT (URL) OF TROPONIN, DEFINED THE 99TH PERCENTILE OFcTnI DISTRIBUTION IN A REFERENCE POPULATION, HAS BEEN CONFIRMED THE DECISION THRESHOLDFOR LA DIAGNOSIS. Performed By: #### C MYRNA PEREYRA ####[facility] Bzidzhbbmi[address] [place], [place] [address]Dr. Ivette Hernandez CARMITA 1 ng/mL Critically low 9-82 [facility] Comment on above: Performed By: #### C MYRNA PEREYRA ####[facility] Exthyvjcxp86[address] [place], [place] [address]Dr. Ivette Hernandez CBC AUTO DIFFon 04-09-2022 BASO # 0.0 103/ul Normal 0.0-0.1 [facility] Comment on above: Performed By: #### C BC ####[facility] Vghannsdhx[address] [place], [place] [address]Dr. Ivette Hernandez Basophils/100 WBC (Bld) 0.2 % Normal 0.2-2.0 [facility] Comment on above: Performed By: #### C BC ####[facility] Opxcmrldzg34[address] [place], [place] [address]Dr. Ivette Hernandez EO # 0.0 103/ul Normal 0.0-0.7 [facility] Comment on above: Performed By: #### C BC ####[facility] Znwgxjdewr530[address] [place], [place] [address]Dr. Ivette Hernandez Eosinophils/100 WBC (Bld) 0.5 % Critically low 0.9-7.0 [facility] Comment on above: Performed By: #### C BC ####[facility] Alyvrygqvh25[address] [place], [place] [address]Dr. Ivette Hernandez Erythrocyte distribution width (RBC) [Ratio] 14.6 % Normal 11.0-15.0 [facility] Comment on above: Performed By: #### C BC ####[facility] G[address]yhviazr9352 [place] [address]Dr. Ivette Hernandez Hematocrit (Bld) [Volume fraction] 27.0 % Critically low 36.0-48.0 [facility] Comment on above: Performed By: #### C BC ####[facility] Flzmbgzpou[address] [place], [place] [address]Dr. Ivette Hernandez Hemoglobin (Bld) [Mass/Vol] 8.5 g/dL Critically low 12.0-16.0 [facility] Comment on above: Performed By: #### C BC ####[facility] Knbemsqxuj9193 [place] [address]Dr. Ivette Hernandez IG # 0.02 10e3/ul Normal 0.00-0.03 [facility] Comment on above: Performed By: #### C BC ####[facility] Hhkpfprhns[address] [place], [place] [address]Dr. Ivette Hernandez IG % 0.2 % Normal 0.0-0.5 [facility] Comment on above: Performed By: #### C BC ####[facility] Tibjnbscfg3[address] [place], [place] [address]Dr. Ivette Hernandez LYMPH # 1.4 103/ul Normal 1.2-3.8 [facility] Comment on above: Performed By: #### C BC ####[facility] Xriezsihwi[address] [place], [place] [address]Dr. Ivette Hernandez Lymphocytes/100 WBC (Bld) 17.2 % Critically low 20.5-60.0 [facility] Comment on above: Performed By: #### C BC ####[facility] Itbeptuedw801[address] [place], [place] [address]Dr. Ivette David MANUAL DIFF REQ NO Normal [facility] Comment on above: Performed By: #### C BC ####[facility] Vazieazhfx9[address] [place], [place] [address]Dr. Cherjun Hernandez MCH (RBC) [Entitic mass] 28.7 pg Normal 26.7-34.0 [facility] Comment on above: Performed By: #### C BC ####[facility] Rzuatoodck3584 [place] [address]Dr. Ivette Hernandez MCHC (RBC) [Mass/Vol] 31.5 g/dL Normal 29.9-35.2 [facility] Comment on above: Performed By: #### C BC ####[facility] Deeqvxkijg[address] [place], [place] [address]Dr. Ivette David MCV (RBC) [Entitic vol] 91.2 fL Normal 81.0-99.0 [facility] Comment on above: Performed By: #### C BC ####[facility] Tueefzfmjm[address] [place], [place] [address]Dr. Ivette David MONO # 0.5 103/ul Normal 0.3-0.8 [facility] Comment on above: Performed By: #### C BC ####[facility] Kqbrscqonw[address] [place], [place] [address]Dr. Cherjun Hernandez Monocytes/100 WBC (Bld) 6.5 % Normal 1.7-12.0 [facility] Comment on above: Performed By: #### C BC ####[facility] Rbokjfspou[address] [place], [place] [address]Dr. Ivette Hernandez NEUT # 6.3 103/ul Normal 1.4-6.5 [facility] Comment on above: Performed By: #### C BC ####[facility] Gfcaawbw[address] [place], [place] [address]Dr. Cherjun Hernandez Neutrophils/100 WBC (Bld) 75.4 % Critically high 43.0-75.0 [facility] Comment on above: Performed By: #### C BC ####[facility] Cgubpkijiw[address] [place], [place] [address]Dr. Ivette Hernandez Platelet mean volume (Bld) [Entitic vol] 9.8 fL Normal 9.5-13.5 [facility] Comment on above: Performed By: #### C BC ####[facility] [address] [place], [place] [address]Dr. Ivette Hernandez PLT 158 103/ul Normal 150-450 [facility] Comment on above: Performed By: #### C BC ####[facility] [address] [place] [address]Dr. Ivette Hernandez RBC 2.96 106/ul Critically low 4.20-5.40 [facility] Comment on above: Performed By: #### C BC ####[facility] Dsqdicuekn[address] [place] [address]Dr. Ivette Hernandez WBC 8.4 103/ul Normal 4.0-11.0 [facility] Comment on above: Performed By: #### C BC ####[facility] Avscdgwjgz[address] [place] [address]Dr. Ivette David LACTATE/LACTIC ACIDon 2021 Lactate [Moles/Vol] 0.9 mmol/L Normal 0.4-1.9 [facility] Comment on above: Performed By: #### L ACT ####[facility] Xagckrnkri[address] [place] [address]Dr. Ivette David PROF CHEM 8 (BAS METB)on Anion gap [Moles/Vol] 8.8 mmol/L Normal [facility] Comment on above: Performed By: #### C RODDY, BMP ####[facility] Meaioiubnq[address] [place] [address]Dr. Ivette Hernandez Calcium [Mass/Vol] 6.9 mg/dL Critically low 8.5-10.[address] [facility] Comment on above: Performed By: #### C BENJYM, BMP ####[facility] Yndomnthup[address] [place] [address]Dr. Ivette Hernandez Chloride [Moles/Vol] 105 mmol/L Normal 98-107 [facility] Comment on above: Performed By: #### C BENJYM, BMP ####[facility] Nnfefxqfry76[address] [place] [address]Dr. Ivette Hernandez CO2 [Moles/Vol] 28.1 mmol/L Normal 21.0-32.0 [facility] Comment on above: Performed By: #### C MADM, BMP ####[facility] Tevdzyhawi[address] [place] [address]Dr. Ivetet Hernandez Creatinine [Mass/Vol] 1.77 mg/dL Critically high 0.55-1.02 [facility] Comment on above: Performed By: #### C MADM, BMP ####[facility] Wbvtnykdmj[address] [place], [place] [address]Dr. Ivette Hernandez EGFR-AF KUWAITI 34 mL/min/1.73m2 Critically low >=60 [facility] Comment on above: Performed By: #### C MADM, BMP ####[facility] Ikwoqqwwym50[address] [place], [place] [address]Dr. Ivette Hernandez EGFR-NON AF [place]I 28 mL/min/1.73m2 Critically low >=60 [facility] Comment on above: Performed By: #### C MADM, BMP ####[facility] Eruttffzvj[address] [place], [place] [address]Dr. Ivette Hernandez Glucose [Mass/Vol] 130 mg/dL Critically high 74-106 [facility] Comment on above: Performed By: #### C MADM, BMP ####[facility] Ndxhmmysrd5[address] [place], [place] [address]Dr. Ivette Hernanedz Potassium [Moles/Vol] 3.9 mmol/L Normal 3.5-5.1 [facility] Comment on above: Performed By: #### C MADM, BMP ####[facility] Ozjjatywqh389[address] [place], [place] [address]Dr. Ivette Hernandez Sodium [Moles/Vol] 138 mmol/L Normal 136-145 [facility] Comment on above: Performed By: #### C MADM, BMP ####[facility] Yitrecewnf59[address] [place], [place] [address]Dr. Ivette Hernandez Urea nitrogen [Mass/Vol] 25.0 mg/dL Critically high 7.0-18.0 [facility] Comment on above: Performed By: #### C MADM, BMP ####[facility] Svrltyminq00[address] [place], [place] [address]Dr. Yilan Hernandez Urea nitrogen/Creatinine [Mass ratio] 14.1 mg/mg Normal [facility] Comment on above: Performed By: #### C MADM, BMP ####[facility] Twmgrvwlgu[address] [place], [place] [address]Dr. Ivette Hernandez AMMONIAon 03-10-2022 Ammonia (P) [Moles/Vol] 12 umol/L Normal 11-32 [facility] Comment on above: Performed By: #### A MM ####[facility] Mtokogrtla76[address] [place], [place] [address]Dr. Ievtte Hernandez BNPon 03-10-2022 Natriuretic peptide B (Bld) [Mass/Vol] 9132.0 pg/mL Critically high <=900.0 [facility] Comment on above: Performed By: #### M G, CMP, PHOS, BNP ####[facility] Jwpizgsovq3[address] [place], [place] [address]Dr. Ivette Hernandez CBC AUTO DIFFon 03-10-2022 BASO # 0.0 103/ul Normal 0.0-0.1 [facility] Comment on above: Performed By: #### C BC ####[facility] Epabztrhbu48[address] [place], [place] [address]Dr. Ivette Hernandez Basophils/100 WBC (Bld) 0.3 % Normal 0.2-2.0 [facility] Comment on above: Performed By: #### C BC ####[facility] Olcnphcujt12[address] [place], [place] [address]Dr. Ivette Hernandez EO # 0.3 103/ul Normal 0.0-0.7 [facility] Comment on above: Performed By: #### C BC ####[facility] Zwudbyesfy[address] [place], [place] [address]Dr. Ivette Hernandez Eosinophils/100 WBC (Bld) 3.2 % Normal 0.9-7.0 [facility] Comment on above: Performed By: #### C BC ####[facility] Wtjwgruavn[address] [place], [place] [address]Dr. Ivette Hernandez Erythrocyte distribution width (RBC) [Ratio] 14.3 % Normal 11.0-15.0 [facility] Comment on above: Performed By: #### C BC ####[facility] Fcevexjkqf[address] [place] [address]Dr. Ivette Hernandez Hematocrit (Bld) [Volume fraction] 25.5 % Critically low 36.0-48.0 [facility] Comment on above: Performed By: #### C BC ####[facility] Wfskojmnnp[address] [place] [address]Dr. Ivette Hernandez Hemoglobin (Bld) [Mass/Vol] 8.0 g/dL Critically low 12.0-16.0 [facility] Comment on above: Performed By: #### C BC ####[facility] Lqieuuqmze20[address] [place], [place] [address]Dr. Ivette Hernandez IG # 0.05 10e3/ul Critically high 0.00-0.03 [facility] Comment on above: Performed By: #### C BC ####[facility] Ytafxnvhod56[address] [place], [place] [address]Dr. Ivette Hernandez IG % 0.6 % Critically high 0.0-0.5 [facility] Comment on above: Performed By: #### C BC ####[facility] Tliuahkfdk[address] [place], [place] [address]DrJesse Hernandez LYMPH # 1.9 103/ul Normal 1.2-3.8 [facility] Comment on above: Performed By: #### C BC ####[facility] Uakngqgwqz9[address] [place], [place] [address]Dr. Ivette Hernandez Lymphocytes/100 WBC (Bld) 20.8 % Normal 20.5-60.0 [facility] Comment on above: Performed By: #### C BC ####[facility] Efbibxllkj817[address] [place], [place] [address]DrJesse Hernandez MANUAL DIFF REQ NO Normal [facility] Comment on above: Performed By: #### C BC ####[facility] Swydkocywp[address] [place], [place] [address]DrJesse Hernandez MCH (RBC) [Entitic mass] 28.7 pg Normal 26.7-34.0 [facility] Comment on above: Performed By: #### C BC ####[facility] [address]fufbsb[address] [place] [id number]. Ivette David MCHC (RBC) [Mass/Vol] 31.4 g/dL Normal 29.9-35.2 [facility] Comment on above: Performed By: #### C BC ####[facility] Bnyvrpbdhl[address] [place] [address]Dr. Ivette Hernandez MCV (RBC) [Entitic vol] 91.4 fL Normal 81.0-99.0 [facility] Comment on above: Performed By: #### C BC ####[facility] Vtfploxzza59[address] [place], [place] [address]Dr. Ivette Hernandez MONO # 0.5 103/ul Normal 0.3-0.8 [facility] Comment on above: Performed By: #### C BC ####[facility] Uzzduqbhuv63[address] [place], [place] [address]Dr. Ivette Hernandez Monocytes/100 WBC (Bld) 5.6 % Normal 1.7-12.0 [facility] Comment on above: Performed By: #### C BC ####[facility] Glgiqlcfqa7[address] [place], [place] [address]Dr. Ivette Hernandez NEUT # 6.2 103/ul Normal 1.4-6.5 [facility] Comment on above: Performed By: #### C BC ####[facility] Ubrybyvmwo[address] [place], [place] [address]Dr. Ivette Hernandez Neutrophils/100 WBC (Bld) 69.5 % Normal 43.0-75.0 [facility] Comment on above: Performed By: #### C BC ####[facility] Ddltaaltms2[address] [place], [place] [address]DrJesse Hernandez Platelet mean volume (Bld) [Entitic vol] 9.3 fL Critically low 9.5-13.5 [facility] Comment on above: Performed By: #### C BC ####[facility] Dubgzkoxje[address] [place], [place] [address]Dr. Ivette Hernandez PLT 213 103/ul Normal 150-450 [facility] Comment on above: Performed By: #### C BC ####[facility] Wtgwnvsupf57[address] [place] [address]Dr. Ivette Hernandez RBC 2.79 106/ul Critically low 4.20-5.40 [facility] Comment on above: Performed By: #### C BC ####[facility] Olrdmsgfpy6[address] [place] [address]Dr. Ivette Hernandez WBC 8.9 103/ul Normal 4.0-11.0 [facility] Comment on above: Performed By: #### C BC ####[facility] S[address]aubkxbg[address] [place] [address]Dr. Ivette Hernandez MAGNESIUMon 03-10-2022 Magnesium [Mass/Vol] 1.9 mg/dL Normal 1.8-2.4 [facility] Comment on above: Performed By: #### M G, CMP, PHOS, BNP ####[facility] Fftctrrxgx[address] [place] [address]Dr. Ivette Hernandez PHOSPHORUSon 03-10-2022 Phosphate [Mass/Vol] 3.8 mg/dL Normal 2.6-4.7 [facility] Comment on above: Performed By: #### M G, CMP, PHOS, BNP ####[facility] [address]yugdphw[address] [place] [address]Dr. Cherjun Hernandez PROF 14(COMP METB)on 022 Albumin [Mass/Vol] 2.3 g/dL Critically low 3.4-5.[address] [facility] Comment on above: Performed By: #### M G, CMP, PHOS, BNP ####[facility] Vyxelnbyvs50[address] [place] [address]Dr. Ivette Hernandez Albumin/Globulin [Mass ratio] 0.6 {ratio} Normal [facility] Comment on above: Performed By: #### M G, CMP, PHOS, BNP ####[facility] Lsfskhvoam[address] [place] [address]Dr. Ivette Hernandez ALP [Catalytic activity/Vol] 64 U/L Normal 46-116 [facility] Comment on above: Performed By: #### M G, CMP, PHOS, BNP ####[facility] Evrbehumwm[address] [place] [address]Dr. Ivette Hernandez ALT [Catalytic activity/Vol] 14 U/L Normal 14-59 [facility] Comment on above: Performed By: #### M G, CMP, PHOS, BNP ####[facility] Ijoubjxqym[address] [place] [address]Dr. Ivette Hernandez Anion gap [Moles/Vol] 3.4 mmol/L Normal [facility] Comment on above: Performed By: #### M G, CMP, PHOS, BNP ####[facility] Iatpfibiqs8[address] [place], [place] [address]Dr. Ivette Hernandez AST [Catalytic activity/Vol] 20 U/L Normal 15-37 [facility] Comment on above: Performed By: #### M G, CMP, PHOS, BNP ####[facility] Kvndgvujyx[address] [place], [place] [address]Dr. Ivette Hernandez Bilirubin [Mass/Vol] 0.3 mg/dL Normal 0.2-1.0 [facility] Comment on above: Performed By: #### M G, CMP, PHOS, BNP ####[facility] Yhboalgmir69[address] [place], [place] [address]Dr. Ivette Hernandez Calcium [Mass/Vol] 8.3 mg/dL Critically low 8.5-10.1 [facility] Comment on above: Performed By: #### M G, CMP, PHOS, BNP ####[facility] Wrfigolgfk45[address] [place] [address]Dr. Ivette Hernandez Chloride [Moles/Vol] 100 mmol/L Normal 98-107 [facility] Comment on above: Performed By: #### M G, CMP, PHOS, BNP ####[facility] Tdxfpcdxjz03[address] [place], [place] [address]Dr. Ivette Hernandez CO2 [Moles/Vol] 38.3 mmol/L Critically high 21.0-32.0 [facility] Comment on above: Performed By: #### M G, CMP, PHOS, BNP ####[facility] Crpkcjxgsw9[address] [place] [address]Dr. Ivette Hernandez Creatinine [Mass/Vol] 1.50 mg/dL Critically high 0.55-1.02 [facility] Comment on above: Performed By: #### M G, CMP, PHOS, BNP ####[facility] Kowzvdrlve[address] [place] [address]Dr. Ivette Hernandez EGFR-AF [place]I 41 mL/min/1.73m2 Critically low >=60 [facility] Comment on above: Performed By: #### M G, CMP, PHOS, BNP ####[facility] Bcbugvzikb24[address] [place] [address]Dr. Ivette Hernandez EGFR-NON AF [place]I 34 mL/min/1.73m2 Critically low >=60 [facility] Comment on above: Performed By: #### M G, CMP, PHOS, BNP ####[facility] Rubadbolfz[address] [place], [place] [address]Dr. Ivette Hernandez Globulin (S) [Mass/Vol] 4.1 g/dL Normal [facility] Comment on above: Performed By: #### M G, CMP, PHOS, BNP ####[facility] Xejbhgzcpj[address] [place], [place] [address]Dr. Ivette Hernandez Glucose [Mass/Vol] 114 mg/dL Critically high 74-106 [facility] Comment on above: Performed By: #### M G, CMP, PHOS, BNP ####[facility] Ewuqfzwekl36[address] [place] [address]Dr. Ivette Hernandez Potassium [Moles/Vol] 3.7 mmol/L Normal 3.5-5.1 [facility] Comment on above: Performed By: #### M G, CMP, PHOS, BNP ####[facility] Uzwlyehuxh[address] [place], [place] [address]Dr. Ivette Hernandez Protein [Mass/Vol] 6.4 g/dL Normal 6.4-8.2 [facility] Comment on above: Performed By: #### M G, CMP, PHOS, BNP ####[facility] Pqvwtqwxlq86[address] [place], [place] [address]Dr. Ivette Hernandez Sodium [Moles/Vol] 138 mmol/L Normal 136-145 [facility] Comment on above: Performed By: #### M G, CMP, PHOS, BNP ####[facility] Oykdmejzkt[address] [place] [address]Dr. Ivette Hernandez Urea nitrogen [Mass/Vol] 20.0 mg/dL Critically high 7.0-18.0 [facility] Comment on above: Performed By: #### M G, CMP, PHOS, BNP ####[facility] Rrdqaotxul9995 [place] [address]Dr. Ivette Hernandez Urea nitrogen/Creatinine [Mass ratio] 13.3 mg/mg Normal [facility] Comment on above: Performed By: #### M G, CMP, PHOS, BNP ####[facility] Fcbdugfcvm4357 [place] [address]Dr. Cherjun David AMMONIAon 03-09-2022 Ammonia (P) [Moles/Vol] 15 umol/L Normal 11-32 [facility] Comment on above: Performed By: #### A MM ####[facility] Mxcwkhqclj[address] [place], [place] [address]Dr. Ivette David BNPon 03-09-2022 Natriuretic peptide B (Bld) [Mass/Vol] 78031.0 pg/mL Critically high <=900.0 [facility] Comment on above: Performed By: #### B MEDICAL SECRETARY, PHOS, MG, CMP ####[facility] Kctxlrfqgz[address] [place], [place] [address]Dr. Ivette David CBC AUTO DIFFon 03-09-2022 BASO # 0.0 103/ul Normal 0.0-0.1 [facility] Comment on above: Performed By: #### C BC ####[facility] Pmvnnulsxb[address] [place], [place] [address]Dr. Ivette David Basophils/100 WBC (Bld) 0.5 % Normal 0.2-2.0 [facility] Comment on above: Performed By: #### C BC ####[facility] Uvyorbyphg[address] [place], [place] [address]Dr. Ivette Hernandez EO # 0.2 103/ul Normal 0.0-0.7 [facility] Comment on above: Performed By: #### C BC ####[facility] Afpucaskxy[address] [place] [address]Dr. Ivette Hernandez Eosinophils/100 WBC (Bld) 2.6 % Normal 0.9-7.0 [facility] Comment on above: Performed By: #### C BC ####[facility] Bpafgexwms0664 [place] [address]Dr. Ivette Hernandez Erythrocyte distribution width (RBC) [Ratio] 14.2 % Normal 11.0-15.0 [facility] Comment on above: Performed By: #### C BC ####[facility] Xxzfwnlbvi2697 [place] [address]Dr. Ivette Hernandez Hematocrit (Bld) [Volume fraction] 26.7 % Critically low 36.0-48.0 [facility] Comment on above: Performed By: #### C BC ####[facility] Jgzgvrgmmm[address] [place], [place] [address]Dr. Ivette Hernandez Hemoglobin (Bld) [Mass/Vol] 8.3 g/dL Critically low 12.0-16.0 [facility] Comment on above: Performed By: #### C BC ####[facility] Jqgpdflicc[address] [place], [place] [address]Dr. Ivette Hernandez IG # 0.05 10e3/ul Critically high 0.00-0.[address] [facility] Comment on above: Performed By: #### C BC ####[facility] Alsgazpqlp35[address] [place] [address]Dr. Ivette Hernandez IG % 0.7 % Critically high 0.0-0.5 [facility] Comment on above: Performed By: #### C BC ####[facility] Xcxdwdfccx[address] [place], [place] [address]Dr. Ivette Hernandez LYMPH # 1.4 103/ul Normal 1.2-3.8 [facility] Comment on above: Performed By: #### C BC ####[facility] Ejqttsfmjd[address] [place], [place] [address]Dr. Ivette Hernandez Lymphocytes/100 WBC (Bld) 17.6 % Critically low 20.5-60.0 [facility] Comment on above: Performed By: #### C BC ####[facility] Fqhekwoufl5[address] [place] [address]Dr. Ivette Hernandez MANUAL DIFF REQ NO Normal [facility] Comment on above: Performed By: #### C BC ####[facility] Ndkijcglcq[address] [place] [address]Dr. Ivette Hernandez MCH (RBC) [Entitic mass] 28.6 pg Normal 26.7-34.0 [facility] Comment on above: Performed By: #### C BC ####[facility] Hhudwrrksv36[address] [place] [address]Dr. Ivette Hernandez MCHC (RBC) [Mass/Vol] 31.1 g/dL Normal 29.9-35.2 [facility] Comment on above: Performed By: #### C BC ####[facility] Gstfvayuac4183 [place] [address]Dr. Ivette Hernandez MCV (RBC) [Entitic vol] 92.1 fL Normal 81.0-99.0 [facility] Comment on above: Performed By: #### C BC ####[facility] Qcssfdycsq7306 [place] [address]Dr. Ivette Hernandez MONO # 0.5 103/ul Normal 0.3-0.8 [facility] Comment on above: Performed By: #### C BC ####[facility] Fjwuvydodb2596 [place] [address]Dr. Ivette Hernandez Monocytes/100 WBC (Bld) 6.2 % Normal 1.7-12.0 [facility] Comment on above: Performed By: #### C BC ####[facility] Euzunonond[address] [place] [address]Dr. Ivette Hernandez NEUT # 5.6 103/ul Normal 1.4-6.5 [facility] Comment on above: Performed By: #### C BC ####[facility] Djiezonxae48[address] [place] [address]Dr. Ivette Hernandez Neutrophils/100 WBC (Bld) 72.4 % Normal 43.0-75.0 [facility] Comment on above: Performed By: #### C BC ####[facility] Tjsrtnrikv[address] [place], [place] [address]Dr. Ivette Hernandez Platelet mean volume (Bld) [Entitic vol] 9.6 fL Normal 9.5-13.5 [facility] Comment on above: Performed By: #### C BC ####[facility] Bxxisqgirz2227 [place] [address]Dr. Ivette Hernandez PLT 233 103/ul Normal 150-450 [facility] Comment on above: Performed By: #### C BC ####[facility] Dsszkfnlrf[address] [place], [place] [address]Dr. Ivette Hernandez RBC 2.90 106/ul Critically low 4.20-5.40 [facility] Comment on above: Performed By: #### C BC ####[facility] Idrahejgyq[address] [place], [place] [address]Dr. Ivette Hernandez WBC 7.7 103/ul Normal 4.0-11.0 [facility] Comment on above: Performed By: #### C BC ####[facility] Eofdbqarkf[address] [place], [place] [address]Dr. Ivette Hernandez BASO # 0.0 103/ul Normal 0.0-0.1 [facility] Comment on above: Performed By: #### C BC ####[facility] Nzhkxnejtp04[address] [place], [place] [address]Dr. Ivette Hernandez Basophils/100 WBC (Bld) 0.5 % Normal 0.2-2.0 [facility] Comment on above: Performed By: #### C BC ####[facility] Vyhfumihxu[address] [place], [place] [address]Dr. Ivette Hernandez EO # 0.2 103/ul Normal 0.0-0.7 [facility] Comment on above: Performed By: #### C BC ####[facility] Dgnklbqgyr218[address] [place], [place] [address]Dr. Ivette Hernandez Eosinophils/100 WBC (Bld) 2.8 % Normal 0.9-7.0 [facility] Comment on above: Performed By: #### C BC ####[facility] Kcncwfjtfp[address] [place], [place] [address]Dr. Ivette Hernandez Erythrocyte distribution width (RBC) [Ratio] 14.3 % Normal 11.0-15.0 [facility] Comment on above: Performed By: #### C BC ####[facility] Wngxjfvmdl[address] [place], [place] [address]Dr. Ivette Hernandez Hematocrit (Bld) [Volume fraction] 25.2 % Critically low 36.0-48.0 [facility] Comment on above: Performed By: #### C BC ####[facility] Gulwilafvd97[address] [place], [place] [address]Dr. Ivette Hernandez Hemoglobin (Bld) [Mass/Vol] 7.8 g/dL Critically low 12.0-16.0 [facility] Comment on above: Performed By: #### C BC ####[facility] Tbkwkbzhtx[address] [place], [place] [address]Dr. Ivette Hernandez IG # 0.02 10e3/ul Normal 0.00-0.03 [facility] Comment on above: Performed By: #### C BC ####[facility] Vjncyvxedo[address] [place], [place] [address]Dr. Ivette Hernandez IG % 0.3 % Normal 0.0-0.5 [facility] Comment on above: Performed By: #### C BC ####[facility] Xniiahmanf824[address] [place], [place] [address]Dr. Ivette Hernandez LYMPH # 1.6 103/ul Normal 1.2-3.8 [facility] Comment on above: Performed By: #### C BC ####[facility] Piwnlprfiz[address] [place], [place] [address]Dr. Ivette Hernandez Lymphocytes/100 WBC (Bld) 24.5 % Normal 20.5-60.0 [facility] Comment on above: Performed By: #### C BC ####[facility] Ehroucwjzs[address] [place], [place] [address]DrJesse Hernandez MANUAL DIFF REQ NO Normal [facility] Comment on above: Performed By: #### C BC ####[facility] Fxpoamgpfj4197 [place] [address]DrJesse Hernandez MCH (RBC) [Entitic mass] 28.4 pg Normal 26.7-34.0 [facility] Comment on above: Performed By: #### C BC ####[facility] Onlwkugoae98[address] [place] [address]DrJesse Hernandez MCHC (RBC) [Mass/Vol] 31.0 g/dL Normal 29.9-35.2 [facility] Comment on above: Performed By: #### C BC ####[facility] Xhuhnngkou[address] [place], [place] [address]DrJesse Hernandez MCV (RBC) [Entitic vol] 91.6 fL Normal 81.0-99.0 [facility] Comment on above: Performed By: #### C BC ####[facility] [address]zxx[address] [place] [address]DrJesse Hernandez MONO # 0.5 103/ul Normal 0.3-0.8 [facility] Comment on above: Performed By: #### C BC ####[facility] Lwlvvwos[address] [place], [place] [address]DrJesse Hernandez Monocytes/100 WBC (Bld) 7.8 % Normal 1.7-12.0 [facility] Comment on above: Performed By: #### C BC ####[facility] Lgmndmouxe[address] [place], [place] [address]DrJesse Hernandez NEUT # 4.2 103/ul Normal 1.4-6.5 [facility] Comment on above: Performed By: #### C BC ####[facility] Ydslzypdld[address] [place], [place] [address]DrJesse Hernandez Neutrophils/100 WBC (Bld) 64.1 % Normal 43.0-75.0 [facility] Comment on above: Performed By: #### C BC ####[facility] Gyhuzbtxih9[address] [place], [place] [address]DrJesse Hernandez Platelet mean volume (Bld) [Entitic vol] 9.2 fL Critically low 9.5-13.5 [facility] Comment on above: Performed By: #### C BC ####[facility] Smcurzhstf[address] [place] [address]Dr. Ivette Hernandez PLT 208 103/ul Normal 150-450 [facility] Comment on above: Performed By: #### C BC ####[facility] Jjlursclgm19[address] [place] [address]Dr. Ivette Hernandez RBC 2.75 106/ul Critically low 4.20-5.40 [facility] Comment on above: Performed By: #### C BC ####[facility] Zgqcbohfmy6[address] [place] [address]Dr. Ivette Hernandez WBC 6.5 103/ul Normal 4.0-11.0 [facility] Comment on above: Performed By: #### C BC ####[facility] Wvrgodzkja4[address] [place] [address]Dr. Ivette David MAGNESIUMon 03-09-2022 Magnesium [Mass/Vol] 1.7 mg/dL Critically low 1.8-2.4 [facility] Comment on above: Performed By: #### B MEDICAL SECRETARY, PHOS, MG, CMP ####[facility] Dtwmvfurlo17[address] [place] [address]Dr. Ivette Hernandez MRI BRAIN WO CONon 2 MRI BRAIN WO CON Normal [facility] PHOSPHORUSon 03-09-2022 Phosphate [Mass/Vol] 3.5 mg/dL Normal 2.6-4.7 [facility] Comment on above: Performed By: #### B MEDICAL SECRETARY, PHOS, MG, CMP ####[facility] Vzpiqfokzm[address] [place] [address]Dr. Cherjun Hernandez PROF 14(COMP METB)on 022 Albumin [Mass/Vol] 2.3 g/dL Critically low 3.4-5.[address] [facility] Comment on above: Performed By: #### B MEDICAL SECRETARY, PHOS, MG, CMP ####[facility] Mxmxmrysab4997 [place] [address]Dr. Ivette Hernandez Albumin/Globulin [Mass ratio] 0.6 {ratio} Normal [facility] Comment on above: Performed By: #### B MEDICAL SECRETARY, PHOS, MG, CMP ####[facility] Pncbterbua[address] [place] [address]Dr. Ivette Hernandez ALP [Catalytic activity/Vol] 58 U/L Normal 46-116 [facility] Comment on above: Performed By: #### B MEDICAL SECRETARY, PHOS, MG, CMP ####[facility] Wgjfjmeoxq[address] [place], [place] [address]Dr. Ivette Hernandez ALT [Catalytic activity/Vol] 13 U/L Critically low 14-59 [facility] Comment on above: Performed By: #### B MEDICAL SECRETARY, PHOS, MG, CMP ####[facility] Cegnghinrr17[address] [place] [address]Dr. Ivette Hernandez Anion gap [Moles/Vol] 5.6 mmol/L Normal [facility] Comment on above: Performed By: #### B MEDICAL SECRETARY, PHOS, MG, CMP ####[facility] Pdkhgdpdbh9[address] [place], [place] [address]Dr. Cherjun Hernandez AST [Catalytic activity/Vol] 16 U/L Normal 15-37 [facility] Comment on above: Performed By: #### B MEDICAL SECRETARY, PHOS, MG, CMP ####[facility] Kqudlkqgrr048[address] [place], [place] [address]Dr. Ivette Hernandez Bilirubin [Mass/Vol] 0.4 mg/dL Normal 0.2-1.0 [facility] Comment on above: Performed By: #### B MEDICAL SECRETARY, PHOS, MG, CMP ####[facility] Knyfkirvqp280[address] [place], [place] [address]Dr. Ivette Hernandez Calcium [Mass/Vol] 7.9 mg/dL Critically low 8.5-10.1 Th e [facility] Comment on above: Performed By: #### B MEDICAL SECRETARY, PHOS, MG, CMP ####[facility] Xlollzdyxg26[address] [place], [place] [address]Dr. Ivette Hernandez Chloride [Moles/Vol] 99 mmol/L Normal 98-107 [facility] Comment on above: Performed By: #### B MEDICAL SECRETARY, PHOS, MG, CMP ####[facility] Megdlerwrs4807 [place] [address]Dr. Ivette Hernandez CO2 [Moles/Vol] 40.2 mmol/L Critically high 21.0-32.0 [facility] Comment on above: Performed By: #### B MEDICAL SECRETARY, PHOS, MG, CMP ####[facility] Ydegdpeejv399[address] [place], [place] [address]Dr. Ivette Hernandez Creatinine [Mass/Vol] 1.47 mg/dL Critically high 0.55-1.02 [facility] Comment on above: Performed By: #### B MEDICAL SECRETARY, PHOS, MG, CMP ####[facility] Ibkaqvjpqa48[address] [place], [place] [address]Dr. Ivette Hernandez EGFR-AF KUWAITI 42 mL/min/1.73m2 Critically low >=60 [facility] Comment on above: Performed By: #### B MEDICAL SECRETARY, PHOS, MG, CMP ####[facility] Sdnaukyqvp8837[address] [place], [place] [address]Dr. Ivette Hernandez EGFR-NON AF KU[place]I 35 mL/min/1.73m2 Critically low >=60 [facility] Comment on above: Performed By: #### B MEDICAL SECRETARY, PHOS, MG, CMP ####[facility] Ermyeiyirx[address] [place], [place] [address]Dr. Ivette Hernandez Globulin (S) [Mass/Vol] 4.0 g/dL Normal [facility] Comment on above: Performed By: #### B MEDICAL SECRETARY, PHOS, MG, CMP ####[facility] Cjqqewyhhf34[address] [place], [place] [address]Dr. Ivette Hernandez Glucose [Mass/Vol] 100 mg/dL Normal 74-106 [facility] Comment on above: Performed By: #### B MEDICAL SECRETARY, PHOS, MG, CMP ####[facility] Bagppblbig1456 [place] [address]Dr. Ivette Hernandez Potassium [Moles/Vol] 3.8 mmol/L Normal 3.5-5.1 [facility] Comment on above: Performed By: #### B MEDICAL SECRETARY, PHOS, MG, CMP ####[facility] Bwgtckoqyj8544[address] [place], [place] [address]Dr. Ivette Hernandez Protein [Mass/Vol] 6.3 g/dL Critically low 6.4-8.2 [facility] Comment on above: Performed By: #### B MEDICAL SECRETARY, PHOS, MG, CMP ####[facility] Bcbedbboad179[address] [place], [place] [address]Dr. Ivette Hernandez Sodium [Moles/Vol] 141 mmol/L Normal 136-145 [facility] Comment on above: Performed By: #### B MEDICAL SECRETARY, PHOS, MG, CMP ####[facility] Esiqlkcrod[address] [place] [address]. Ivette Hernandez Urea nitrogen [Mass/Vol] 19.0 mg/dL Critically high 7.0-18.0 [facility] Comment on above: Performed By: #### B MEDICAL SECRETARY, PHOS, MG, CMP ####[facility] Qdiekffrtc0018[address] [place], [place] [address]Dr. Ivette Hernandez Urea nitrogen/Creatinine [Mass ratio] 12.9 mg/mg Normal [facility] Comment on above: Performed By: #### B MEDICAL SECRETARY, PHOS, MG, CMP ####[facility] Rrdygzzugb87[address] [place], [place] [address]Dr. Ivette Hernandez BNPon 03-08-2022 Natriuretic peptide B (Bld) [Mass/Vol] 82049.0 pg/mL Critically high <=900.0 [facility] Comment on above: Performed By: #### B MEDICAL SECRETARY, CMP, HSTROPN ####[facility] Udswccacbh040[address] [place], [place] [address]Dr. Ivette Hernandez CBC AUTO DIFFon 03-08-2022 BASO # 0.0 103/ul Normal 0.0-0.1 [facility] Comment on above: Performed By: #### C BC ####[facility] Llnzkaauku039[address] [place], [place] [address]Dr. Ivette Hernandez Basophils/100 WBC (Bld) 0.4 % Normal 0.2-2.0 [facility] Comment on above: Performed By: #### C BC ####[facility] Qtfxkofrvc30[address] [place] [id number]. Ivette Hernandez EO # 0.3 103/ul Normal 0.0-0.7 [facility] Comment on above: Performed By: #### C BC ####[facility] Lrghdzmijx9295 [place] [address]Dr. Ivette Hernandez Eosinophils/100 WBC (Bld) 2.5 % Normal 0.9-7.0 [facility] Comment on above: Performed By: #### C BC ####[facility] Rkfycwlvlx6407 [place] [address]Dr. Ivette Hernandez Erythrocyte distribution width (RBC) [Ratio] 14.0 % Normal 11.0-15.0 [facility] Comment on above: Performed By: #### C BC ####[facility] Tqyjpckutx[address] [place], [place] [address]Dr. Ivette Hernandez Hematocrit (Bld) [Volume fraction] 29.7 % Critically low 36.0-48.0 [facility] Comment on above: Performed By: #### C BC ####[facility] Qrffkrfxtt[address] [place], [place] [address]Dr. Ivette Hernandez Hemoglobin (Bld) [Mass/Vol] 9.2 g/dL Critically low 12.0-16.0 [facility] Comment on above: Performed By: #### C BC ####[facility] Ymcnpiexrk86[address] [place] [address]Dr. Ivette Hernandez IG # 0.08 10e3/ul Critically high 0.00-0.03 [facility] Comment on above: Performed By: #### C BC ####[facility] Ywqhbvadjy7853 [place] [address]Dr. Ivette Hernandez IG % 0.8 % Critically high 0.0-0.5 The [facility] Comment on above: Performed By: #### C BC ####[facility] [address]qw[address] [place], [place] [address]Dr. Cherjun Hernandez LYMPH # 2.5 103/ul Normal 1.2-3.8 [facility] Comment on above: Performed By: #### C BC ####[facility] Gkkhfvlsri0945 [place] [address]Dr. Ivette Hernandez Lymphocytes/100 WBC (Bld) 24.8 % Normal 20.5-60.0 [facility] Comment on above: Performed By: #### C BC ####[facility] Htribexlfy[address] [place] [address]Dr. Ivette Hernandez MANUAL DIFF REQ NO Normal [facility] Comment on above: Performed By: #### C BC ####[facility] Wxwklzchhk6626 [place] [address]Dr. Ivette Hernandez MCH (RBC) [Entitic mass] 28.5 pg Normal 26.7-34.0 [facility] Comment on above: Performed By: #### C BC ####[facility] Obugrpdzky4[address] [place] [address]Dr. Ivette Hernandez MCHC (RBC) [Mass/Vol] 31.0 g/dL Normal 29.9-35.2 [facility] Comment on above: Performed By: #### C BC ####[facility] Glitdjpxuz0159 [place] [address]Dr. Ivette Hernandez MCV (RBC) [Entitic vol] 92.0 fL Normal 81.0-99.0 [facility] Comment on above: Performed By: #### C BC ####[facility] Tnazmxerxw7452 [place] [address]Dr. Ivette Hernandez MONO # 0.6 103/ul Normal 0.3-0.8 [facility] Comment on above: Performed By: #### C BC ####[facility] Coazlddyzz0267 [place] [address]Dr. Ivette Hernandez Monocytes/100 WBC (Bld) 6.3 % Normal 1.7-12.0 [facility] Comment on above: Performed By: #### C BC ####[facility] Dtahyqtxkj3209 [place] [address]DrJesse Hernandez NEUT # 6.6 103/ul Critically high 1.4-6.5 The [facility] Comment on above: Performed By: #### C BC ####[facility] Nuzqkxkmvs0886 [place] [address]Dr. Ivette Hernandez Neutrophils/100 WBC (Bld) 65.2 % Normal 43.0-75.0 [facility] Comment on above: Performed By: #### C BC ####[facility] Frsbfizoxi1362 [place] [address]Dr. Ivette Hernandez Platelet mean volume (Bld) [Entitic vol] 9.7 fL Normal 9.5-13.5 [facility] Comment on above: Performed By: #### C BC ####[facility] Drminoipnw3728 [place] [address]Dr. Ivette Hernandez PLT 328 103/ul Normal 150-450 [facility] Comment on above: Performed By: #### C BC ####[facility] Wxpeuhefnz64[address] [place], [place] [address]Dr. Ivette Hernandez RBC 3.23 106/ul Critically low 4.20-5.40 [facility] Comment on above: Performed By: #### C BC ####[facility] Eljvvghwja757[address] [place], [place] [address]Dr. Ivette Hernandez WBC 10.1 103/ul Normal 4.0-11.0 [facility] Comment on above: Performed By: #### C BC ####[facility] Ywlrxrrmsb678[address] [place], [place] [address]Dr. Ivette Hernandez BASO # 0.0 103/ul Normal 0.0-0.1 [facility] Comment on above: Performed By: #### C BC ####[facility] Sukhksiatt8275 [place] [address]Dr. Ivette Hernandez Basophils/100 WBC (Bld) 0.4 % Normal 0.2-2.0 [facility] Comment on above: Performed By: #### C BC ####[facility] Somvvoojys[address] [place], [place] [address]Dr. Ivette Hernandez EO # 0.2 103/ul Normal 0.0-0.7 [facility] Comment on above: Performed By: #### C BC ####[facility] Ruytayvxsm6702 [place] [id number]. Ivette Hernandez Eosinophils/100 WBC (Bld) 2.9 % Normal 0.9-7.0 [facility] Comment on above: Performed By: #### C BC ####[facility] Klszgdogwe4713 [place] [address]Dr. Ivette Hernandez Erythrocyte distribution width (RBC) [Ratio] 14.2 % Normal 11.0-15.0 [facility] Comment on above: Performed By: #### C BC ####[facility] Tzgrpewbni[address] [place], [place] [address]Dr. Ivette Hernandez Hematocrit (Bld) [Volume fraction] 27.7 % Critically low 36.0-48.0 [facility] Comment on above: Performed By: #### C BC ####[facility] Uesiyytsqh198[address] [place], [place] [address]Dr. Ivette Hernandez Hemoglobin (Bld) [Mass/Vol] 8.5 g/dL Critically low 12.0-16.0 [facility] Comment on above: Performed By: #### C BC ####[facility] Iaxymzqsge732[address] [place], [place] [address]Dr. Ivette Hernandez IG # 0.04 10e3/ul Critically high 0.00-0.03 [facility] Comment on above: Performed By: #### C BC ####[facility] Hclyatrpco[address] [place], [place] [address]Dr. Ivette Hernandez IG % 0.5 % Normal 0.0-0.5 [facility] Comment on above: Performed By: #### C BC ####[facility] Fzhwwabzia197[address] [place], [place] [address]Dr. Ivette Hernandez LYMPH # 2.1 103/ul Normal 1.2-3.8 [facility] Comment on above: Performed By: #### C BC ####[facility] Hgwskfhtfp756[address] [place], [place] [address]Dr. Ivette Hernandez Lymphocytes/100 WBC (Bld) 27.3 % Normal 20.5-60.0 [facility] Comment on above: Performed By: #### C BC ####[facility] Sfzfibrtfo4197 [place] [id number]. Ivette Hernandez MANUAL DIFF REQ NO Normal [facility] Comment on above: Performed By: #### C BC ####[facility] Nnenxldtqo6214 [place] [id number]. Ivette Hernandez MCH (RBC) [Entitic mass] 28.1 pg Normal 26.7-34.0 [facility] Comment on above: Performed By: #### C BC ####[facility] Kqntwkdrdo9320 [place] [id number]. Ivette Hernandez MCHC (RBC) [Mass/Vol] 30.7 g/dL Normal 29.9-35.2 [facility] Comment on above: Performed By: #### C BC ####[facility] Ngtyapssiq789[address] [place], [place] [address]Dr. Ivette Hernandez MCV (RBC) [Entitic vol] 91.4 fL Normal 81.0-99.0 [facility] Comment on above: Performed By: #### C BC ####[facility] Dnxzrvjggk226[address] [place], [place] [address]Dr. Ivette Hernandez MONO # 0.5 103/ul Normal 0.3-0.8 [facility] Comment on above: Performed By: #### C BC ####[facility] Hcliyfypgf97[address] [place], [place] [address]Dr. Ivette Hernandez Monocytes/100 WBC (Bld) 6.1 % Normal 1.7-12.0 [facility] Comment on above: Performed By: #### C BC ####[facility] [address]ebpxoeprq[address] [place], [place] [address]Dr. Ivette Hernandez NEUT # 4.9 103/ul Normal 1.4-6.5 [facility] Comment on above: Performed By: #### C BC ####[facility] Biljeytpir[address] [place], [place] [address]Dr. Ivette Hernandez Neutrophils/100 WBC (Bld) 62.8 % Normal 43.0-75.0 [facility] Comment on above: Performed By: #### C BC ####[facility] Pcgwjyansn[address] [place], [place] [address]Dc. Ivette Hernandez Platelet mean volume (Bld) [Entitic vol] 9.7 fL Normal 9.5-13.5 [facility] Comment on above: Performed By: #### C BC ####[facility] Yajjneszlz0088 [place], [place] [address]Rv. Ivette Hernandez PLT 227 103/ul Normal 150-450 [facility] Comment on above: Performed By: #### C BC ####[facility] Vsargwwgwk5496 [place], [place] [address]Tq. Ivette Hernandez RBC 3.03 106/ul Critically low 4.20-5.40 The [facility] Comment on above: Performed By: #### C BC ####[facility] Ubxxykseoy8905 [place], [place] [address]Zj. Ivette Hernandez WBC 7.8 103/ul Normal 4.0-11.0 [facility] Comment on above: Performed By: #### C BC ####[facility] Hpfiyzanwx5563 [place], [place] [address]Iy. Ivette Hernandez CT HEAD WO CONon 03-08-2022 CT HEAD WO CON Normal [facility] CTA HEAD WO W CONon 03-08-20 CTA HEAD WO W CON Normal [facility] ([facility]on SARS-CoV-2 (COVID-19) RNA MARRY+probe Ql (Unsp spec) Not detected Normal NOT DETECTED [facility] Comment on above: Result Comment: When [...] for this test is supported by the [employer]'s declaration that [...] be used). Performed By: #### C VDTB ####[facility] Qlrqvfpuhe8[address] [place] [address]Dr. Ivette Hernandez PROF 14(COMP METB)on 022 Albumin [Mass/Vol] 2.6 g/dL Critically low 3.4-5.0 Th e [facility] Comment on above: Performed By: #### B MEDICAL SECRETARY, CMP, HSTROPN ####[facility] Uzcvwvxhgc4166 [place] [address]Dr. Ivette Hernandez Albumin/Globulin [Mass ratio] 0.6 {ratio} Normal [facility] Comment on above: Performed By: #### B MEDICAL SECRETARY, CMP, HSTROPN ####[facility] Sppwnrjibi7527 [place] [address]Dr. Ivette Hernandez ALP [Catalytic activity/Vol] 68 U/L Normal 46-116 [facility] Comment on above: Performed By: #### B MEDICAL SECRETARY, CMP, HSTROPN ####[facility] Oqxbjhqqnf6725 [place] [address]Dr. Ivette Hernandez ALT [Catalytic activity/Vol] 16 U/L Normal 14-59 [facility] Comment on above: Performed By: #### B MEDICAL SECRETARY, CMP, HSTROPN ####[facility] Ligjpvykeo7116 [place] [address]Dr. Ivette Hernandez Anion gap [Moles/Vol] 6.8 mmol/L Normal [facility] Comment on above: Performed By: #### B MEDICAL SECRETARY, CMP, HSTROPN ####[facility] Rlsqcgbipc8418 [place] [address]Dr. Ivette Hernandez AST [Catalytic activity/Vol] 18 U/L Normal 15-37 [facility] Comment on above: Performed By: #### B MEDICAL SECRETARY, CMP, HSTROPN ####[facility] Uwznoldphr1135 [place] [address]Dr. Ivette Hernandez Bilirubin [Mass/Vol] 0.5 mg/dL Normal 0.2-1.0 [facility] Comment on above: Performed By: #### B MEDICAL SECRETARY, CMP, HSTROPN ####[facility] Fythyirsah299[address] [place] [address]Dr. Ivetet Hernandez Calcium [Mass/Vol] 8.2 mg/dL Critically low 8.5-10.1 [facility] Comment on above: Performed By: #### B MEDICAL SECRETARY, CMP, HSTROPN ####[facility] Dlivpparmk4582 [place] [address]Dr. Ivette Hrenandez Chloride [Moles/Vol] 97 mmol/L Critically low 98-107 [facility] Comment on above: Performed By: #### B MEDICAL SECRETARY, CMP, HSTROPN ####[facility] Iluwfdimhy7978 [place] [address]Dr. Ivette Hernandez CO2 [Moles/Vol] 37.9 mmol/L Critically high 21.0-32.0 [facility] Comment on above: Performed By: #### B MEDICAL SECRETARY, CMP, HSTROPN ####[facility] Khqixqcxjh[address] [place], [place] [address]Dr. Ivette Hernandez Creatinine [Mass/Vol] 1.65 mg/dL Critically high 0.55-1.02 [facility] Comment on above: Performed By: #### B MEDICAL SECRETARY, CMP, HSTROPN ####[facility] Qagtwmykaz4340 [place] [address]Dr. Ivette Hernandez EGFR-AF KU[place]I 37 mL/min/1.73m2 Critically low >=60 [facility] Comment on above: Performed By: #### B MEDICAL SECRETARY, CMP, HSTROPN ####[facility] Apgpiuocbq304[address] [place], [place] [address]Dr. Ivette Hernandez EGFR-NON AF [place]I 30 mL/min/1.73m2 Critically low >=60 [facility] Comment on above: Performed By: #### B MEDICAL SECRETARY, CMP, HSTROPN ####[facility] Ivuzbubzlx9352 [place] [address]Dr. Ivette Hernandez Globulin (S) [Mass/Vol] 4.7 g/dL Normal [facility] Comment on above: Performed By: #### B MEDICAL SECRETARY, CMP, HSTROPN ####[facility] Ruclfqtmnl1518 [place] [address]Dr. Ivette Hernandez Glucose [Mass/Vol] 203 mg/dL Critically high 74-106 [facility] Comment on above: Performed By: #### B MEDICAL SECRETARY, CMP, HSTROPN ####[facility] Itrbfilhgc0326 [place] [address]Dr. Ivette Hernandez Potassium [Moles/Vol] 3.7 mmol/L Normal 3.5-5.1 [facility] Comment on above: Performed By: #### B MEDICAL SECRETARY, CMP, HSTROPN ####[facility] Lopitlhcxe9[address] [place], [place] [address]Dr. Ivette Hernandez Protein [Mass/Vol] 7.3 g/dL Normal 6.4-8.2 [facility] Comment on above: Performed By: #### B MEDICAL SECRETARY, CMP, HSTROPN ####[facility] Czeudvvwue[address] [place], [place] [address]Dr. Ivette Hernandez Sodium [Moles/Vol] 138 mmol/L Normal 136-145 [facility] Comment on above: Performed By: #### B MEDICAL SECRETARY, CMP, HSTROPN ####[facility] Jyfvekytpp1975 [place] [address]Dr. Ivette Hernandez Urea nitrogen [Mass/Vol] 22.0 mg/dL Critically high 7.0-18.0 [facility] Comment on above: Performed By: #### B MEDICAL SECRETARY, CMP, HSTROPN ####[facility] Fenmbxjupk54[address] [place], [place] [address]Dr. Ivette Hernandez Urea nitrogen/Creatinine [Mass ratio] 13.3 mg/mg Normal [facility] Comment on above: Performed By: #### B MEDICAL SECRETARY, CMP, HSTROPN ####[facility] Yksxhunqyn150[address] [place], [place] [address]Dr. Ivette Hernandez PROF CHEM 8 (BAS METB)on Anion gap [Moles/Vol] 6.0 mmol/L Normal [facility] Comment on above: Performed By: #### B MP ####[facility] Wjupbigkey7436 [place] [address]Dr. Ivette Hernandez Calcium [Mass/Vol] 8.0 mg/dL Critically low 8.5-10.1 [facility] Comment on above: Performed By: #### B MP ####[facility] Bjaeglelkm5226 [place] [address]Dr. Ivette Hernandez Chloride [Moles/Vol] 98 mmol/L Normal 98-107 [facility] Comment on above: Performed By: #### B MP ####[facility] Mqinsusszi2154 [place] [address]Dr. Ivette Hernandez CO2 [Moles/Vol] 39.9 mmol/L Critically high 21.0-32.0 [facility] Comment on above: Performed By: #### B MP ####[facility] Mlzqmyqqch8479 [place] [address]Dr. Ivette Hernandez Creatinine [Mass/Vol] 1.56 mg/dL Critically high 0.55-1.02 [facility] Comment on above: Performed By: #### B MP ####[facility] [address]in[address] [place] [address]Dr. Ivette Hernandez EGFR-AF KU[place]I 39 mL/min/1.73m2 Critically low >=60 [facility] Comment on above: Performed By: #### B MP ####[facility] Jrxlhnjmzf[address] [place] [address]Dr. Ivette Hernandez EGFR-NON AF [place] 33 mL/min/1.73m2 Critically low >=60 [facility] Comment on above: Performed By: #### B MP ####[facility] Lfkulpascb[address] [place] [address]Dr. Ivette Hernandez Glucose [Mass/Vol] 143 mg/dL Critically high 74-106 [facility] Comment on above: Performed By: #### B MP ####[facility] Vlyiawnnel[address] [place] [address]Dr. Ivette Hernandez Potassium [Moles/Vol] 3.9 mmol/L Normal 3.5-5.1 [facility] Comment on above: Performed By: #### B MP ####[facility] Fttznpdupy[address] [place] [address]Dr. Ivette Hernandez Sodium [Moles/Vol] 140 mmol/L Normal 136-145 [facility] [place] Comment on above: Performed By: #### B MP ####[facility] Zalwhspxcp[address] [place], [place] [address]Dr. Ivette Hernandez Urea nitrogen [Mass/Vol] 23.0 mg/dL Critically high 7.0-18.0 [facility] Comment on above: Performed By: #### B MP ####[facility] Zutimjoeui[address] [place], [place] [address]Dr. Ivette Hernandez Urea nitrogen/Creatinine [Mass ratio] 14.7 mg/mg Normal [facility] Comment on above: Performed By: #### B MP ####[facility] Selrqljwqm[address] [place], [place] [address]Dr. Ivette Hernandez PROTIMEon 03-08-2022 INR Coag (PPP) [Relative time] 1.11 {INR} Normal [facility] Comment on above: Performed By: #### P T, PTT ####[facility] Uvnnbsujxf[address] [place], [place] [address]Dr. Ivette Hernandez INR GUIDELINES SEE BELOW Normal The [facility] Comment on above: Result Comment: MELANIE RED INR: 2.0 - 3.0 CONDITIONS NOT LISTED BELOW 2.5 - 3.5 FOR PROSTHETIC HEART VALVE REPLACEMENT 2.5 - 3.5 RECURRENT THROMBOSIS Performed By: #### P T, PTT ####[facility] Bfmurazlpt8[address] [place], [place] [address]Dr. Ivette Hernandez PT Coag (PPP) [Time] 11.9 s Critically high 9.0-11.6 [facility] Comment on above: Performed By: #### P T, PTT ####[facility] Vktputnvgp[address] [place], [place] [address]Dr. Ivette Hernandez PTTon 03-08-2022 aPTT Coag (Bld) [Time] 29.0 s Normal 22.3-36.2 Th e [facility] Comment on above: Performed By: #### P T, PTT ####[facility] Eczpvtqgrt[address] [place] [id number]. Ivette Hernandez TROPONIN, HIGH SENSITIVITYon 03-08-2022 HSTROP 74.2 pg/mL Critically high 4.0-51.3 The [facility] Comment on above: Result Comment: CUT- OFF POINTS HAVE BEEN ESTABLISHED BASED ON THE FOURTH UNIVERSAL DEFINITIONS OF MYOCARDIALINFARCTION. THE UPPER REFERENCE LIMIT (URL) OF TROPONIN, DEFINED THE 99TH PERCENTILE OFcTnI DISTRIBUTION IN A REFERENCE POPULATION, HAS BEEN CONFIRMED THE DECISION THRESHOLDFOR LA DIAGNOSIS. Performed By: #### B MEDICAL SECRETARY, CMP, HSTROPN ####[facility] Ozwpgjwgcq379[address] [place], [place] [address]Dr. Ivette Hernandez XR CHEST 1 Von 03-08-2022 XR CHEST 1 V Normal [facility] CBC AUTO DIFFon 03-07-2022 BASO # 0.0 103/ul Normal 0.0-0.1 [facility] Comment on above: Performed By: #### C BC ####[facility] Fpdeskuaqq[address] [place], [place] [address]DrJesse Ivette David Basophils/100 WBC (Bld) 0.5 % Normal 0.2-2.0 [facility] Comment on above: Performed By: #### C BC ####[facility] Jostajfyfb0664[address] [place], [place] [address]Dr. Ivette David EO # 0.3 103/ul Normal 0.0-0.7 [facility] Comment on above: Performed By: #### C BC ####[facility] Dsbjihrgvg150[address] [place], [place] [address]Dr. Ivette David Eosinophils/100 WBC (Bld) 3.9 % Normal 0.9-7.0 [facility] Comment on above: Performed By: #### C BC ####[facility] Yjzicwpoav323[address] [place], [place] [address]Dr. Ivette David Erythrocyte distribution width (RBC) [Ratio] 14.1 % Normal 11.0-15.0 [facility] Comment on above: Performed By: #### C BC ####[facility] Aryubqgipx[address] [place] [address]Dr. Ivette Hernandez Hematocrit (Bld) [Volume fraction] 26.9 % Critically low 36.0-48.0 [facility] Comment on above: Performed By: #### C BC ####[facility] Fswvlyalyb0101[address] [place], [place] [address]Dr. Ivette Hernandez Hemoglobin (Bld) [Mass/Vol] 8.1 g/dL Critically low 12.0-16.0 [facility] Comment on above: Performed By: #### C BC ####[facility] Nwbfkfvggy68[address] [place], [place] [address]Dr. Ivette Hernandez IG # 0.06 10e3/ul Critically high 0.00-0.03 [facility] Comment on above: Performed By: #### C BC ####[facility] Wwwzlhllko7680[address] [place], [place] [address]Dr. Cherjun Hernandez IG % 0.8 % Critically high 0.0-0.5 The [facility] Comment on above: Performed By: #### C BC ####[facility] Izeoicgfjf00[address] [place], [place] [address]Dr. Ivette David LYMPH # 1.7 103/ul Normal 1.2-3.8 [facility] Comment on above: Performed By: #### C BC ####[facility] Igijhtijlu606[address] [place], [place] [address]Dr. Cherjun Hernandez Lymphocytes/100 WBC (Bld) 21.9 % Normal 20.5-60.0 [facility] Comment on above: Performed By: #### C BC ####[facility] Gsoljoncow445[address] [place], [place] [address]Dr. Cherjun Hernandez MANUAL DIFF REQ NO Normal The [facility] Comment on above: Performed By: #### C BC ####[facility] Dshmhbageg688[address] [place], [place] [address]Dr. Ivette Hernandez MCH (RBC) [Entitic mass] 28.2 pg Normal 26.7-34.0 [facility] Comment on above: Performed By: #### C BC ####[facility] Qpqgbbmzqf7[address] [place] [address]Dr. Ivette Hernandez MCHC (RBC) [Mass/Vol] 30.1 g/dL Normal 29.9-35.2 [facility] Comment on above: Performed By: #### C BC ####[facility] Apnhlbnuip4516[address] [place], [place] [address]Dr. Ivette Hernandez MCV (RBC) [Entitic vol] 93.7 fL Normal 81.0-99.0 [facility] Comment on above: Performed By: #### C BC ####[facility] Nonfcrqrko869[address] [place], [place] [address]Dr. Ivette David MONO # 0.5 103/ul Normal 0.3-0.8 [facility] Comment on above: Performed By: #### C BC ####[facility] Robojhuogu633[address] [place], [place] [address]Dr. Cherjun Hernandez Monocytes/100 WBC (Bld) 6.5 % Normal 1.7-12.0 [facility] Comment on above: Performed By: #### C BC ####[facility] Nvgovgmvsq769[address] [place], [place] [address]Dr. Ivette Hernandez NEUT # 5.3 103/ul Normal 1.4-6.5 [facility] Comment on above: Performed By: #### C BC ####[facility] Dwlistpxdi976[address] [place], [place] [address]Dr. Cherjun Hernandez Neutrophils/100 WBC (Bld) 66.4 % Normal 43.0-75.0 [facility] Comment on above: Performed By: #### C BC ####[facility] Pfwnognyam5926[address] [place], [place] [address]DrJesse Ivette David Platelet mean volume (Bld) [Entitic vol] 9.9 fL Normal 9.5-13.5 [facility] Comment on above: Performed By: #### C BC ####[facility] Ntckrvodaw[address] [place], [place] [address]Dr. Ivette David PLT 229 103/ul Normal 150-450 [facility] Comment on above: Performed By: #### C BC ####[facility] Tquhpbmhww[address] [place] [address]Dr. Ivette Hernandez RBC 2.87 106/ul Critically low 4.20-5.40 The [facility] Comment on above: Performed By: #### C BC ####[facility] Sdbqnjnqkj54[address] [place] [address]Dr. Ivette David WBC 7.9 103/ul Normal 4.0-11.0 [facility] Comment on above: Performed By: #### C BC ####[facility] Dhwmymftns[address] [place] [address]Dr. Cherjun Hernandez PROF CHEM 8 (BAS METB)on Anion gap [Moles/Vol] 2.9 mmol/L Normal [facility] Comment on above: Performed By: #### B MP ####[facility] Neeemuirrp[address] [place] [address]Dr. Cherjun Hernandez Calcium [Mass/Vol] 7.5 mg/dL Critically low 8.5-10.1 [facility] Comment on above: Performed By: #### B MP ####[facility] Serpctcbdb98[address] [place] [address]Dr. Ivette David Chloride [Moles/Vol] 102 mmol/L Normal 98-107 [facility] Comment on above: Performed By: #### B MP ####[facility] Smirbgqefi[address] [place] [address]Dr. Ivette Hernandez CO2 [Moles/Vol] 41.1 mmol/L Critically high 21.0-32.0 [facility] Comment on above: Performed By: #### B MP ####[facility] Iornfeyhbd723[address] [place], [place] [address]Dr. Ivette David Creatinine [Mass/Vol] 1.58 mg/dL Critically high 0.55-1.02 [facility] Comment on above: Performed By: #### B MP ####[facility] Khbjryevnm4[address] [place] [address]Dr. Ivette Hernandez EGFR-AF [place]I 39 mL/min/1.73m2 Critically low >=60 [facility] Comment on above: Performed By: #### B MP ####[facility] Nddgimdeef60[address] [place] [address]Dr. Ivette Hernandez EGFR-NON AF [place] 32 mL/min/1.73m2 Critically low >=60 [facility] Comment on above: Performed By: #### B MP ####[facility] Ypaxzjumru[address] [place], [place] [address]Dr. Ivette Hernandez Glucose [Mass/Vol] 115 mg/dL Critically high 74-106 [facility] Comment on above: Performed By: #### B MP ####[facility] Glskwistee[address] [place], [place] [address]Dr. Ivette Hernandez Potassium [Moles/Vol] 4.0 mmol/L Normal 3.5-5.1 [facility] Comment on above: Performed By: #### B MP ####[facility] Fnllkuzzvc[address] [place], [place] [address]Dr. Ivette Hernandez Sodium [Moles/Vol] 142 mmol/L Normal 136-145 [facility] [place] Comment on above: Performed By: #### B MP ####[facility] Cbjmvhibtf7199[address] [place], [place] [address]Dr. Ivette Hernandez Urea nitrogen [Mass/Vol] 23.0 mg/dL Critically high 7.0-18.0 [facility] Comment on above: Performed By: #### B MP ####[facility] Oosuyjzkjz7[address] [place], [place] [address]Dr. Ivette David Urea nitrogen/Creatinine [Mass ratio] 14.6 mg/mg Normal [facility] Comment on above: Performed By: #### B MP ####[facility] Wwcmswublg6[address] [place], [place] [address]Dr. Ivette David CBC AUTO DIFFon 03-06-2022 BASO # 0.0 103/ul Normal 0.0-0.1 [facility] Comment on above: Performed By: #### C BC ####[facility] Hsqttpgpen[address] [place] [address]Dr. Ivette Hernandez Basophils/100 WBC (Bld) 0.3 % Normal 0.2-2.0 [facility] Comment on above: Performed By: #### C BC ####[facility] Mctcvuiiml5[address] [place] [address]Dr. Ivette Hernandez EO # 0.2 103/ul Normal 0.0-0.7 [facility] Comment on above: Performed By: #### C BC ####[facility] Bkaqdtehfg7[address] [place] [address]Dr. Ivette Hernandez Eosinophils/100 WBC (Bld) 2.4 % Normal 0.9-7.0 [facility] Comment on above: Performed By: #### C BC ####[facility] [address]ct[address]oqtj[address] [place], [place] [address]Dr. Ivette Hernandez Erythrocyte distribution width (RBC) [Ratio] 14.3 % Normal 11.0-15.0 [facility] Comment on above: Performed By: #### C BC ####[facility] Mpunnxsokk[address] [place] [address]Dr. Ivette Hernandez Hematocrit (Bld) [Volume fraction] 27.2 % Critically low 36.0-48.0 [facility] Comment on above: Performed By: #### C BC ####[facility] Ntddxmotsb05[address] [place] [address]Dr. Ivette Hernandez Hemoglobin (Bld) [Mass/Vol] 7.8 g/dL Critically low 12.0-16.0 [facility] Comment on above: Performed By: #### C BC ####[facility] Dpgyjppvak15[address] [place] [address]Dr. Ivette Hernandez IG # 0.07 10e3/ul Critically high 0.00-0.03 [facility] Comment on above: Performed By: #### C BC ####[facility] Mmoqmhfzfe13[address] [place] [address]Dr. Ivette Hernandez IG % 0.8 % Critically high 0.0-0.5 The [facility] Comment on above: Performed By: #### C BC ####[facility] Qiwytgsrit24[address] [place] [address]Dr. Ivette Hernandez LYMPH # 1.8 103/ul Normal 1.2-3.8 [facility] Comment on above: Performed By: #### C BC ####[facility] Qckwqbbbnm57[address] [place] [address]Dr. Ivette Hernandez Lymphocytes/100 WBC (Bld) 21.2 % Normal 20.5-60.0 [facility] Comment on above: Performed By: #### C BC ####[facility] Zbmcjibgtt5[address] [place] [address]Dr. Ivette Hernandez MANUAL DIFF REQ NO Normal [facility] Comment on above: Performed By: #### C BC ####[facility] Pjmigmgwni0[address] [place] [id number]. Ivette Hernandez MCH (RBC) [Entitic mass] 27.6 pg Normal 26.7-34.0 [facility] Comment on above: Performed By: #### C BC ####[facility] Puiurhdzhm35[address] [place] [id number]. Ivette Hernandez MCHC (RBC) [Mass/Vol] 28.7 g/dL Critically low 29.9-35.2 [facility] Comment on above: Performed By: #### C BC ####[facility] Svkwzqgpwm47[address] [place] [address]Dr. Ivette Hernandez MCV (RBC) [Entitic vol] 96.1 fL Normal 81.0-99.0 [facility] Comment on above: Performed By: #### C BC ####[facility] Jiphpukfhp22[address] [place] [address]Dr. Ivette Hernandez MONO # 0.6 103/ul Normal 0.3-0.8 [facility] Comment on above: Performed By: #### C BC ####[facility] Mtrellczfj80[address] [place] [address]Dr. Ivette Hernandez Monocytes/100 WBC (Bld) 6.8 % Normal 1.7-12.0 [facility] Comment on above: Performed By: #### C BC ####[facility] Lwwvhpzuoi28[address] [place] [address]Dr. Ivette Hernandez NEUT # 5.9 103/ul Normal 1.4-6.5 [facility] Comment on above: Performed By: #### C BC ####[facility] Rmhzeyizvm10[address] [place] [id number]. Ivette Hernandez Neutrophils/100 WBC (Bld) 68.5 % Normal 43.0-75.0 [facility] Comment on above: Performed By: #### C BC ####[facility] Iovdvygmoe4528 [place] [id number]. Ivette Hernandez Platelet mean volume (Bld) [Entitic vol] 9.9 fL Normal 9.5-13.5 [facility] Comment on above: Performed By: #### C BC ####[facility] Dllhjbbdcx0392 [place] [id number]. Ivette Hernandez PLT 193 103/ul Normal 150-450 [facility] Comment on above: Performed By: #### C BC ####[facility] Rhxzzqxdcq7351 [place] [id number]. Ivette Hernandez RBC 2.83 106/ul Critically low 4.20-5.40 [facility] Comment on above: Performed By: #### C BC ####[facility] Xauwmdhpcu4189 [place] [id number]. Ivette Hernandez WBC 8.7 103/ul Normal 4.0-11.0 [facility] Comment on above: Performed By: #### C BC ####[facility] Uggqqqiywa5096 [place] [id number]. Ivette Hernandez PROF CHEM 8 (BAS METB)on Anion gap [Moles/Vol] 2.7 mmol/L Normal [facility] Comment on above: Performed By: #### B MP ####[facility] Kpbwkfasex47[address] [place] [id number]. Ivette David Calcium [Mass/Vol] 7.6 mg/dL Critically low 8.5-10.1 Th [facility] Comment on above: Performed By: #### B MP ####[facility] Dploklkdrf50[address] [place] [address]Dr. Ivette Hernandez Chloride [Moles/Vol] 103 mmol/L Normal 98-107 [facility] Comment on above: Performed By: #### B MP ####[facility] Rxeyofrbdo70[address] [place] [address]Dr. Ivette Hernandez CO2 [Moles/Vol] 41.1 mmol/L Critically high 21.0-32.0 [facility] Comment on above: Performed By: #### B MP ####[facility] Ejhqjugubv[address] [place], [place] [address]Dr. Ivette Hernandez Creatinine [Mass/Vol] 1.61 mg/dL Critically high 0.55-1.02 [facility] Comment on above: Performed By: #### B MP ####[facility] Huzhqotash[address] [place], [place] [address]Dr. Ivette David EGFR-AF [place]I 38 mL/min/1.73m2 Critically low >=60 [facility] Comment on above: Performed By: #### B MP ####[facility] Mukexllsbo030[address] [place], [place] [address]Dr. Ivette David EGFR-NON AF [place] 31 mL/min/1.73m2 Critically low >=60 [facility] Comment on above: Performed By: #### B MP ####[facility] Jsseclsyjc[address] [place], [place] [address]Dr. Ivette Hernandez Glucose [Mass/Vol] 124 mg/dL Critically high 74-106 [facility] Comment on above: Performed By: #### B MP ####[facility] Zoytizapmn[address] [place], [place] [address]Dr. Ivette Hernandez Potassium [Moles/Vol] 3.8 mmol/L Normal 3.5-5.1 [facility] Comment on above: Performed By: #### B MP ####[facility] Guysfcbvdz55[address] [place], [place] [address]Dr. Cherjun Hernandez Sodium [Moles/Vol] 143 mmol/L Normal 136-145 [facility] Comment on above: Performed By: #### B MP ####[facility] Rxvjqmjcoz71987[address] [place], [place] [address]Dr. Ivette Hernandez Urea nitrogen [Mass/Vol] 26.0 mg/dL Critically high 7.0-18.0 [facility] Comment on above: Performed By: #### B MP ####[facility] Rpjpligwjt14[address] [place], [place] [address]Dr. Ivette Hernandez Urea nitrogen/Creatinine [Mass ratio] 16.1 mg/mg Normal [facility] Comment on above: Performed By: #### B MP ####[facility] Kiryekjdlv[address] [place], [place] [address]Dr. Ivette Hernandez BNPon 03-05-2022 Natriuretic peptide B (Bld) [Mass/Vol] 80462.0 pg/mL Critically high <=900.0 [facility] Comment on above: Performed By: #### H STROPN, BNP, CMP ####[facility] Afjiyqyjnh67[address] [place], [place] [address]Dr. Ivette Hernandez CBC AUTO DIFFon 03-05-2022 BASO # 0.0 103/ul Normal 0.0-0.1 [facility] Comment on above: Performed By: #### C BC ####[facility] Vknnsckppw96[address] [place], [place] [address]Dr. Ivette David Basophils/100 WBC (Bld) 0.4 % Normal 0.2-2.0 [facility] Comment on above: Performed By: #### C BC ####[facility] Znzwmvnxgu2969[address] [place], [place] [address]Dr. Ivette Hernandez EO # 0.4 103/ul Normal 0.0-0.7 [facility] Comment on above: Performed By: #### C BC ####[facility] Qebwqtzcdn148[address] [place], [place] [address]Dr. Ivette Hernandez Eosinophils/100 WBC (Bld) 3.1 % Normal 0.9-7.0 [facility] Comment on above: Performed By: #### C BC ####[facility] Suekcdgwey049[address] [place], [place] [address]Dr. Ivette Hernandez Erythrocyte distribution width (RBC) [Ratio] 14.5 % Normal 11.0-15.0 [facility] Comment on above: Performed By: #### C BC ####[facility] Kfwsenoqrw37[address] [place] [address]Dr. Ivette Hernandez Hematocrit (Bld) [Volume fraction] 25.3 % Critically low 36.0-48.0 [facility] Comment on above: Performed By: #### C BC ####[facility] Jaovqhurvy85[address] [place], [place] [address]Dr. Cherjun Hernandez Hemoglobin (Bld) [Mass/Vol] 7.5 g/dL Critically low 12.0-16.0 [facility] Comment on above: Performed By: #### C BC ####[facility] Vkbhgzkhxh05[address] [place], [place] [address]Dr. Ivette Hernandez IG # 0.08 10e3/ul Critically high 0.00-0.03 [facility] Comment on above: Performed By: #### C BC ####[facility] Poskabsbxo557[address] [place], [place] [address]Dr. Ivette Hernandez IG % 0.7 % Critically high 0.0-0.5 The [facility] Comment on above: Performed By: #### C BC ####[facility] Bbxkyjmzxr336[address] [place], [place] [address]Dr. Cherjun David LYMPH # 1.7 103/ul Normal 1.2-3.8 [facility] Comment on above: Performed By: #### C BC ####[facility] Gqyalpqdsg306[address] [place], [place] [address]Dr. Ivette Hernandez Lymphocytes/100 WBC (Bld) 14.7 % Critically low 20.5-60.0 [facility] Comment on above: Performed By: #### C BC ####[facility] Cqbnptzwkx13[address] [place], [place] [address]Dr. Ivette Hernandez MANUAL DIFF REQ NO Normal [facility] Comment on above: Performed By: #### C BC ####[facility] Syxggrajkc[address] [place], [place] [address]Dr. Ivette Hernandez MCH (RBC) [Entitic mass] 27.9 pg Normal 26.7-34.0 [facility] Comment on above: Performed By: #### C BC ####[facility] Jrofmmldop32[address] [place] [address]Dr. Ivette Hernandez MCHC (RBC) [Mass/Vol] 29.6 g/dL Critically low 29.9-35.2 [facility] Comment on above: Performed By: #### C BC ####[facility] Xnsjporjjk50[address] [place], [place] [address]Dr. Cherjun Hernandez MCV (RBC) [Entitic vol] 94.1 fL Normal 81.0-99.0 [facility] Comment on above: Performed By: #### C BC ####[facility] Pwvpzewuke259[address] [place], [place] [address]Dr. Ivette Hernandez MONO # 0.9 103/ul Critically high 0.3-0.8 [facility] Comment on above: Performed By: #### C BC ####[facility] Ucbdrhxaoj66[address] [place], [place] [address]Dr. Ivette Hernandez Monocytes/100 WBC (Bld) 7.7 % Normal 1.7-12.0 [facility] Comment on above: Performed By: #### C BC ####[facility] Bvkkogyvcz62[address] [place], [place] [address]Dr. Ivette Hernandez NEUT # 8.3 103/ul Critically high 1.4-6.5 [facility] Comment on above: Performed By: #### C BC ####[facility] Fnklsfvqhl87[address] [place], [place] [address]Dr. Ivette Hernandez Neutrophils/100 WBC (Bld) 73.4 % Normal 43.0-75.0 [facility] Comment on above: Performed By: #### C BC ####[facility] Xnuhgweeak8[address] [place], [place] [address]Dr. Ivette Hernandez Platelet mean volume (Bld) [Entitic vol] 9.8 fL Normal 9.5-13.5 [facility] Comment on above: Performed By: #### C BC ####[facility] Y[address]cyrigulw5171 [place], [place] [address]Wh. Ivette Hernandez PLT 256 103/ul Normal 150-450 [facility] Comment on above: Performed By: #### C BC ####[facility] Bjiuxmwhbc4162 [place], [place] [address]Iw. Ivette Hernandez RBC 2.69 106/ul Critically low 4.20-5.40 The [facility] Comment on above: Performed By: #### C BC ####[facility] [address] [place], [place] [address]Hj. Ivette Hernandez WBC 11.3 103/ul Critically high 4.0-11.0 The [facility] Comment on above: Performed By: #### C BC ####[facility] Gaediwrugs[address] [place], [place] [address]Lc. Ivette Hernandez Covid-19 PCR (CVDTBH)on SARS-CoV-2 (COVID-19) RNA MARRY+probe Ql (Unsp spec) Not detected Normal NOT DETECTED The [facility] Comment on above: Result Comment: When [...] for this test is supported by the Director Of Corporate Sales of Health and Human Service's declaration that [...] be used). Performed By: #### C VDTBH ####[facility] Tev[address]ns[address] [place], [place] [address]By. Ivette Hernandez LACTATE/LACTIC ACIDon 2021 Lactate [Moles/Vol] 0.6 mmol/L Normal 0.4-1.9 [facility] Comment on above: Performed By: #### L ACT ####[facility] [address]ke[address] [place] [address]Dr. Ievtte Hernandez PROF 14(COMP METB)on 022 Albumin [Mass/Vol] 2.3 g/dL Critically low 3.4-5.0 Th [facility] Comment on above: Performed By: #### H STROPN, BNP, CMP ####[facility] [address]df[address] [place] [address]Dr. Ivette Hernandez Albumin/Globulin [Mass ratio] 0.5 {ratio} Normal [facility] Comment on above: Performed By: #### H STROPN, BNP, CMP ####[facility] Xl[address]juzfeek[address] [place] [address]Dr. Ivette Hernandez ALP [Catalytic activity/Vol] 72 U/L Normal 46-116 [facility] Comment on above: Performed By: #### H STROPN, BNP, CMP ####[facility] F[address] [place], [place] [address]Dr. Ivette Hernandez ALT [Catalytic activity/Vol] 15 U/L Normal 14-59 [facility] Comment on above: Performed By: #### H STROPN, BNP, CMP ####[facility] Xakzrdpsal[address] [place] [address]Dr. Ivette Hernandez Anion gap [Moles/Vol] 5.3 mmol/L Normal [facility] Comment on above: Performed By: #### H STROPN, BNP, CMP ####[facility] Edrbjffhhs[address] [place] [address]Dr. Ivette Hernandez AST [Catalytic activity/Vol] 16 U/L Normal 15-37 [facility] Comment on above: Performed By: #### H STROPN, BNP, CMP ####[facility] Gmxcyqlcjj[address] [place] [address]Dr. Ivette Hernandez Bilirubin [Mass/Vol] 0.5 mg/dL Normal 0.2-1.0 [facility] Comment on above: Performed By: #### H STROPN, BNP, CMP ####[facility] Mapavgjota[address] [place] [address]Dr. Ivette Hernandez Calcium [Mass/Vol] 7.8 mg/dL Critically low 8.5-10.1 Th e [facility] Comment on above: Performed By: #### H STROPN, BNP, CMP ####[facility] Lcib[address]gezev[address] [place] [address]Dr. Ivette Hernandez Chloride [Moles/Vol] 102 mmol/L Normal 98-107 The [facility] Comment on above: Performed By: #### H STROPN, BNP, CMP ####[facility] Gluypjswzh[address] [place] [address]Dr. Ivette Hernandez CO2 [Moles/Vol] 38.3 mmol/L Critically high 21.0-32.0 [facility] Comment on above: Performed By: #### H STROPN, BNP, CMP ####[facility] [address]ikvnuzs[address] [place] [address]Dr. Ivette Hernandez Creatinine [Mass/Vol] 1.50 mg/dL Critically high 0.55-1.02 [facility] Comment on above: Performed By: #### H STROPN, BNP, CMP ####[facility] Ufekponvnj[address] [place] [address]Dr. Ivette Hernandez EGFR-AF KUWAITI 41 mL/min/1.73m2 Critically low >=60 [facility] Comment on above: Performed By: #### H STROPN, BNP, CMP ####[facility] Srghskqomi[address] [place] [address]Dr. Ivette Hernandez EGFR-NON AF KUWAITI 34 mL/min/1.73m2 Critically low >=60 The [facility] Comment on above: Performed By: #### H STROPN, BNP, CMP ####[facility] [address]rxbxauh[address] [place] [address]Dr. Ivette Hernandez Globulin (S) [Mass/Vol] 4.3 g/dL Normal [facility] Comment on above: Performed By: #### H STROPN, BNP, CMP ####[facility] B[address]wobcjbej[address] [place] [address]Dr. Ivette Hernandez Glucose [Mass/Vol] 138 mg/dL Critically high 74-106 T [facility] Comment on above: Performed By: #### H STROPN, BNP, CMP ####[facility] Ocnepvfxkn[address] [place] [id number]. Ivette Hernandez Potassium [Moles/Vol] 3.6 mmol/L Normal 3.5-5.1 The [facility] Comment on above: Performed By: #### H STROPN, BNP, CMP ####[facility] Zthnqmhavx[address] [place] [address]Dr. Ivette Hernandez Protein [Mass/Vol] 6.6 g/dL Normal 6.4-8.2 The [facility] [place] Comment on above: Performed By: #### H STROPN, BNP, CMP ####[facility] Ydguytjitd[address] [place] [id number]. Ivette Hernandez Sodium [Moles/Vol] 142 mmol/L Normal 136-145 The [facility] [place] Comment on above: Performed By: #### H STROPN, BNP, CMP ####[facility] Rehkpkcnkc[address] [place] [address]Dr. Ivette Hernandez Urea nitrogen [Mass/Vol] 24.0 mg/dL Critically high 7.0-18.0 [facility] Comment on above: Performed By: #### H STROPN, BNP, CMP ####[facility] Ejqbdzstrt[address] [place] [address]Dr. Ivette Hernandez Urea nitrogen/Creatinine [Mass ratio] 16.0 mg/mg Normal The [facility] Comment on above: Performed By: #### H STROPN, BNP, CMP ####[facility] Omwfvgcnyw[address] [place] [id number]. Ivette Hernandez TROPONIN, HIGH SENSITIVITYon 03-05-2022 HSTROP 18.0 pg/mL Normal 4.0-51.3 The [facility] Comment on above: Result Comment: CUT- OFF POINTS HAVE BEEN ESTABLISHED BASED ON THE FOURTH UNIVERSAL DEFINITIONS OF MYOCARDIALINFARCTION. THE UPPER REFERENCE LIMIT (URL) OF TROPONIN, DEFINED THE 99TH PERCENTILE OFcTnI DISTRIBUTION IN A REFERENCE POPULATION, HAS BEEN CONFIRMED THE DECISION THRESHOLDFOR LA DIAGNOSIS. Performed By: #### H STROPN, BNP, CMP ####[facility] Qcfenegfhq[address]348 [place] [address]Dr. Ivette Hernandez XR CHEST 1 Von 03-05-2022 XR CHEST 1 V Normal The [facility] CBC AUTO DIFFon 02-27-2022 BASO # 0.0 103/ul Normal 0.0-0.1 The [facility] Comment on above: Performed By: #### C BC ####[facility] Actxluqrvu37[address] [place] [address]Dr. Ivette David Basophils/100 WBC (Bld) 0.2 % Normal 0.2-2.0 The [facility] Comment on above: Performed By: #### C BC ####[facility] [address]vig[address] [place], [place] [address]Dr. Ivette Hernandez EO # 0.2 103/ul Normal 0.0-0.7 The [facility] Comment on above: Performed By: #### C BC ####[facility] F[address]utelq[address] [place], [place] [address]Dr. Ivette Hernandez Eosinophils/100 WBC (Bld) 1.9 % Normal 0.9-7.0 The [facility] Comment on above: Performed By: #### C BC ####[facility] Glatuetcsx[address] [place], [place] [address]Dr. Ivette Hernandez Erythrocyte distribution width (RBC) [Ratio] 14.0 % Normal 11.0-15.0 The [facility] Comment on above: Performed By: #### C BC ####[facility] [address]ro[address]butcm[address] [place], [place] [address]Dr. Cherjun Hernandez Hematocrit (Bld) [Volume fraction] 28.7 % Critically low 36.0-48.0 The [facility] Comment on above: Performed By: #### C BC ####[facility] Vclyyzwrrp[address] [place], [place] [address]Dr. Cherjun Hernandez Hemoglobin (Bld) [Mass/Vol] 8.8 g/dL Critically low 12.0-16.0 The [facility] Comment on above: Performed By: #### C BC ####[facility] Jeiuiimgdm4[address] [place] [id number]. Ivette Hernandez IG # 0.05 10e3/ul Critically high 0.00-0.03 [facility] Comment on above: Performed By: #### C BC ####[facility] Ngvwsthywr75[address] [place] [address]Dr. Ivette Hernandez IG % 0.5 % Normal 0.0-0.5 The [facility] Comment on above: Performed By: #### C BC ####[facility] Vnszgdvvln23[address] [place] [address]Dr. Ivette Hernandez LYMPH # 2.1 103/ul Normal 1.2-3.8 The [facility] Comment on above: Performed By: #### C BC ####[facility] Ewprfztbcd[address] [place] [address]Dr. Ivette Hernandez Lymphocytes/100 WBC (Bld) 21.3 % Normal 20.5-60.0 The [facility] Comment on above: Performed By: #### C BC ####[facility] Xdtximbjrb[address] [place] [address]Dr. Ivette Hernandez MANUAL DIFF REQ NO Normal The [facility] Comment on above: Performed By: #### C BC ####[facility] Djcwsgezjt[address] [place] [address]Dr. Cherjun Hernandez MCH (RBC) [Entitic mass] 27.6 pg Normal 26.7-34.0 The [facility] Comment on above: Performed By: #### C BC ####[facility] Klibqztlcx28[address] [place] [address]Dr. Cherjun Hernandez MCHC (RBC) [Mass/Vol] 30.7 g/dL Normal 29.9-35.2 The [facility] Comment on above: Performed By: #### C BC ####[facility] Nszwaknvvj[address] [place] [address]Dr. Ivette Hernandez MCV (RBC) [Entitic vol] 90.0 fL Normal 81.0-99.0 The [facility] Comment on above: Performed By: #### C BC ####[facility] Fjyjpjkgkf[address] [place] [address]Dr. Ivette Hernandez MONO # 0.6 103/ul Normal 0.3-0.8 The [facility] Comment on above: Performed By: #### C BC ####[facility] Ejtxtqytjp3309 [place] [address]Dr. Ivette Hernandez Monocytes/100 WBC (Bld) 6.5 % Normal 1.7-12.0 The [facility] Comment on above: Performed By: #### C BC ####[facility] Ijzezquwdw2424 [place] [address]Dr. Ivette Hernandez NEUT # 6.7 103/ul Critically high 1.4-6.5 The [facility] Comment on above: Performed By: #### C BC ####[facility] Dygoyxeakt299[address] [place] [address]Dr. Ivette Hernandez Neutrophils/100 WBC (Bld) 69.6 % Normal 43.0-75.0 The [facility] Comment on above: Performed By: #### C BC ####[facility] Xrlytmznuc[address] [place], [place] [address]Dr. Ivette Hernandez Platelet mean volume (Bld) [Entitic vol] 9.6 fL Normal 9.5-13.5 The [facility] Comment on above: Performed By: #### C BC ####[facility] Yvtyaddcmq[address] [place], [place] [address]Dr. Ivette Hernandez PLT 236 103/ul Normal 150-450 [facility] Comment on above: Performed By: #### C BC ####[facility] Whlopyvjhc[address] [place], [place] [address]Dr. Ivette Hernandez RBC 3.19 106/ul Critically low 4.20-5.40 The [facility] Comment on above: Performed By: #### C BC ####[facility] [address]igb[address] [place], [place] [address]Dr. Ivette Hernandez WBC 9.6 103/ul Normal 4.0-11.0 [facility] Comment on above: Performed By: #### C BC ####[facility] Vosocyucko[address] [place], [place] [address]Dr. Ivette Hernandez GI PANEL (PCR)on 02-27-2022 Adenovirus F 40/41 Not detected Normal NOT DETECTED The [facility] Comment on above: Performed By: #### G IPANEL ####[facility] Vwikwjdeld[address] [place], [place] [address]Dr. Ivette Hernandez Astrovirus Not detected Normal NOT DETECTED The [facility] Comment on above: Performed By: #### G IPANEL ####[facility] Xmqpdjfnwp[address] [place], [place] [address]Dr. Ivette Hernandez C. Diff toxin A/B Detected Critically abnormal NOT DETECTED The [facility] Comment on above: Performed By: #### G IPANEL ####[facility] Whypdujmgi[address] [place], [place] [address]Dr. Ivette Hernandez Campylobacter Not detected Normal NOT DETECTED The [facility] Comment on above: Performed By: #### G IPANEL ####[facility] Chgxheuthz[address] [place], [place] [address]Dr. Ivette Hernandez Cryptosporidium Not detected Normal NOT DETECTED The [facility] Comment on above: Performed By: #### G IPANEL ####[facility] M[address]bzbxmwa[address] [place], [place] [address]Dr. Ivette Hernandez Cyclos. Cayetanensis Not detected Normal NOT DETECTED The [facility] Comment on above: Performed By: #### G IPANEL ####[facility] Valturgsnd[address] [place], [place] [address]Dr. Ivette Hernandez E. Coli O157 Not Applicable Normal Not Applicable [facility] Comment on above: Performed By: #### G IPANEL ####[facility] Inozzhuusj275[address] [place], [place] [address]Dr. Ivette Hernandez E. histolytica Not detected Normal NOT DETECTED The [facility] Comment on above: Performed By: #### G IPANEL ####[facility] Dduoxfkkkb[address] [place], [place] [address]Dr. Ivette Hernandez EAEC Not detected Normal NOT DETECTED The [facility] Comment on above: Performed By: #### G IPANEL ####[facility] Damzutbbdh[address] [place], [place] [address]Dr. Ivette Hernandez EIEC Not detected Normal NOT DETECTED The [facility] Comment on above: Performed By: #### G IPANEL ####[facility] Nwdihsbhgn7179 [place] [address]Dr. Ivette Hernandez EPEC Not detected Normal NOT DETECTED The [facility] Comment on above: Performed By: #### G IPANEL ####[facility] [address]awmsdo[address] [place], [place] [address]Dr. Cherjun Hernandez ETEC Not detected Normal NOT DETECTED The [facility] Comment on above: Performed By: #### G IPANEL ####[facility] Lvcwpsopzk[address] [place], [place] [address]Dr. Ivette Hernandez G. Lamblia Not detected Normal NOT DETECTED [facility] Comment on above: Performed By: #### G IPANEL ####[facility] Ttnoeghisx[address] [place], [place] [address]Dr. Ivette Hernandez GIPANEL CONTROLS PASSED Normal [facility] Comment on above: Performed By: #### G IPANEL ####[facility] Zopekcfeta[address] [place], [place] [address]Dr. Ivette Hernandez GIPNL GITA HEADER GI PANEL BACTERIA Normal T [facility] Comment on above: Performed By: #### G IPANEL ####[facility] Zxogvbueul[address] [place], [place] [address]Dr. Ivette Hernandez GIPNLHD ECOLI GI PANEL DIARRHEAGEN IC E.COLI / SHIGELLA Normal The [facility] Comment on above: Performed By: #### G IPANEL ####[facility] Worghkhxte[address] [place], [place] [address]Dr. Yijun Hernandez GIPNLHD INFO SEE BELOW Normal [facility] Comment on above: Result Comment: EAEC - Enteroaggregative E. Coli EPEC- Enteropathogenic E. Coli ETEC- Enterotoxigenic E. Coli lt/st STEC- Shigella-like toxin-producing E. Coli stx1/stx2 EIEC- Shigella/Enteroinvasive E. Coli Performed By: #### G IPANEL ####[facility] [address]saqhwamzz[address] [place], [place] [address]Dr. Yilan Hernandez GIPNLHD PARASITES GI PANEL PARASITES Normal The [facility] Comment on above: Performed By: #### G IPANEL ####[facility] Gteajdjtqe8456 [place] [address]Dr. Ivette Hernandez GIPNLHD VIRUS GI PANEL VIRUSES Normal The [facility] Comment on above: Performed By: #### G IPANEL ####[facility] Yqdsjxfflv[address] [place], [place] [address]Dr. Ivette Hernandez Norovirus GI/GII Not detected Normal NOT DETECTED [facility] Comment on above: Performed By: #### G IPANEL ####[facility] Qbvhltcuum[address] [place], [place] [address]Dr. Ivette Hernandez P. Shigelloides Not detected Normal NOT DETECTED [facility] Comment on above: Performed By: #### G IPANEL ####[facility] Rmxfeapxoj186[address] [place], [place] [address]Dr. Ivette Hernandez Rotavirus A Not detected Normal NOT DETECTED [facility] Comment on above: Performed By: #### G IPANEL ####[facility] Uutipqnmtg[address] [place], [place] [address]Dr. Ivette Hernandez Salmonella Not detected Normal NOT DETECTED [facility] Comment on above: Performed By: #### G IPANEL ####[facility] Ovaelxireb[address] [place], [place] [address]Dr. Ivette Hernandez Sapovirus Not detected Normal NOT DETECTED [facility] Comment on above: Performed By: #### G IPANEL ####[facility] [address]tmekyyazc[address] [place], [place] [address]Dr. Ivette Hernandez STEC Not detected Normal NOT DETECTED [facility] Comment on above: Performed By: #### G IPANEL ####[facility] Ikxqndvugi[address] [place], [place] [address]Dr. Ivette Hernandez Vibrio Not detected Normal NOT DETECTED [facility] Comment on above: Performed By: #### G IPANEL ####[facility] Ppdwzdpsgy[address] [place], [place] [address]Dr. Ivette [facility] Vibrio Cholera Not detected Normal NOT DETECTED [facility] Comment on above: Performed By: #### G IPANEL ####[facility] Qwgggotvbn[address] [place], [place] [address]Dr. Ivette Hernandez Y. Enterocolitica Not detected Normal NOT DETECTED [facility] Comment on above: Performed By: #### G IPANEL ####[facility] [address]zomqhziyc[address] [place], [place] [address]Dr. Ivette Hernandez OCC BLD IMMUNO SCREENon 02-01 OCCULT BLOOD Negative Normal NEGATIVE [facility] Comment on above: Performed By: #### O BSCRN ####[facility] Sxgpvfiixk[address] [place], [place] [address]Dr. Ivette Hernandez PROF 14(COMP METB)on 022 Albumin [Mass/Vol] 2.4 g/dL Critically low 3.4-5.0 [facility] Comment on above: Performed By: #### C MP ####[facility] Cjmseibetp[address] [place], [place] [address]Dr. Ivette Hernandez Albumin/Globulin [Mass ratio] 0.6 {ratio} Normal [facility] Comment on above: Performed By: #### C MP ####[facility] Ykfqtsiulc[address] [place], [place] [address]Dr. Ivette Hernandez ALP [Catalytic activity/Vol] 68 U/L Normal 46-116 [facility] Comment on above: Performed By: #### C MP ####[facility] Nmdcyjsmux[address] [place], [place] [address]Dr. Ivette Hernandez ALT [Catalytic activity/Vol] 12 U/L Critically low 14-59 [facility] Comment on above: Performed By: #### C MP ####[facility] Zbwailzidr[address] [place], [place] [address]Dr. Ivette Hernandez Anion gap [Moles/Vol] 10.3 mmol/L Normal [facility] Comment on above: Performed By: #### C MP ####[facility] [address]hcmtizrl[address] [place], [place] [address]Dr. Ivette Hernandez AST [Catalytic activity/Vol] 15 U/L Normal 15-37 [facility] Comment on above: Performed By: #### C MP ####[facility] [address]jwhawfowb[address] [place] [id number]. Ivette Hernandez Bilirubin [Mass/Vol] 0.4 mg/dL Normal 0.2-1.0 [facility] Comment on above: Performed By: #### C MP ####[facility] Esoicaeaie[address] [place] [id number]. Ivette Hernandez Calcium [Mass/Vol] 7.5 mg/dL Critically low 8.5-10.1 Th [facility] Comment on above: Performed By: #### C MP ####[facility] Ztwfzpqrqj8854 [place] [id number]. Ivette Hernandez Chloride [Moles/Vol] 102 mmol/L Normal 98-107 [facility] Comment on above: Performed By: #### C MP ####[facility] Ilophsweoh[address] [place] [address]Dr. Ivette Hernandez CO2 [Moles/Vol] 33.8 mmol/L Critically high 21.0-32.0 [facility] Comment on above: Performed By: #### C MP ####[facility] Aeuifuspkg6334 [place] [id number]. Ivette Hernandez Creatinine [Mass/Vol] 1.35 mg/dL Critically high 0.55-1.02 [facility] Comment on above: Performed By: #### C MP ####[facility] Yuofuycgha[address] [place] [address]Dr. Ivette Hernandez EGFR-AF KUWAITI 47 mL/min/1.73m2 Critically low >=60 [facility] Comment on above: Performed By: #### C MP ####[facility] Ksrbszjzmi[address] [place] [id number]. Ivette Hernandez EGFR-NON AF [place]I 38 mL/min/1.73m2 Critically low >=60 [facility] Comment on above: Performed By: #### C MP ####[facility] Ijthksfgxl66[address] [place] [id number]. Ivette Hernandez Globulin (S) [Mass/Vol] 4.0 g/dL Normal [facility] Comment on above: Performed By: #### C MP ####[facility] Tujgeumdua[address] [place] [id number]. Ivette Hernandez Glucose [Mass/Vol] 142 mg/dL Critically high 74-106 [facility] Comment on above: Performed By: #### C MP ####[facility] Kqdnedwzaq7865 [place] [id number]. Ivette Hernandez Potassium [Moles/Vol] 3.1 mmol/L Critically low 3.5-5.1 [facility] Comment on above: Performed By: #### C MP ####[facility] Btkbklnptz55[address] [place] [address]Dr. Ivette Hernandez Protein [Mass/Vol] 6.4 g/dL Normal 6.4-8.2 [facility] Comment on above: Performed By: #### C MP ####[facility] Bmcjeiveab[address] [place], [place] [address]Dr. Ivette Hernandez Sodium [Moles/Vol] 143 mmol/L Normal 136-145 [facility] Comment on above: Performed By: #### C MP ####[facility] Ykfsnqwyae[address] [place], [place] [address]Dr. Ivette Hernandez Urea nitrogen [Mass/Vol] 32.0 mg/dL Critically high 7.0-18.0 [facility] Comment on above: Performed By: #### C MP ####[facility] Tfopcejgeu[address] [place], [place] [address]Dr. Ivette Hernandez Urea nitrogen/Creatinine [Mass ratio] 23.7 mg/mg Normal [facility] Comment on above: Performed By: #### C MP ####[facility] [address]rjfiqo[address] [place], [place] [address]Dr. Ivette Hernandez CBC AUTO DIFFon 02-26-2022 BASO # 0.0 103/ul Normal 0.0-0.1 [facility] Comment on above: Performed By: #### C BC ####[facility] [address]rgfpbj[address] [place], [place] [address]Dr. Ivette Hernandez Basophils/100 WBC (Bld) 0.0 % Critically low 0.2-2.0 [facility] Comment on above: Performed By: #### C BC ####[facility] Wxcssdbktp34[address] [place] [id number]. Ivette Hernandez EO # 0.0 103/ul Normal 0.0-0.7 [facility] Comment on above: Performed By: #### C BC ####[facility] Glmnzpezag07[address] [place] [id number]. Ivette Hernandez Eosinophils/100 WBC (Bld) 0.0 % Critically low 0.9-7.0 [facility] Comment on above: Performed By: #### C BC ####[facility] [address]wolmklv[address] [place], [place] [address]Dr. Cherjun Hernandez Erythrocyte distribution width (RBC) [Ratio] 13.9 % Normal 11.0-15.0 [facility] Comment on above: Performed By: #### C BC ####[facility] [address] [place], [place] [address]Dr. Cherjun Hernandez Hematocrit (Bld) [Volume fraction] 25.9 % Critically low 36.0-48.0 [facility] Comment on above: Performed By: #### C BC ####[facility] Vrutgnqkon[address] [place], [place] [address]Dr. Ivette Hernandez Hemoglobin (Bld) [Mass/Vol] 8.2 g/dL Critically low 12.0-16.0 [facility] Comment on above: Performed By: #### C BC ####[facility] Pnbyoxtuyu[address] [place], [place] [address]Dr. Ivette David IG # 0.05 10e3/ul Critically high 0.00-0.03 [facility] Comment on above: Performed By: #### C BC ####[facility] Jcgkgleflv[address] [place], [place] [address]Dr. Cherjun Hernandez IG % 0.9 % Critically high 0.0-0.5 The [facility] Comment on above: Performed By: #### C BC ####[facility] Frdyfzlpqn[address] [place], [place] [address]Dr. Ivette Hernandez LYMPH # 1.0 103/ul Critically low 1.2-3.8 The [facility] Comment on above: Performed By: #### C BC ####[facility] Gkouhyexsm[address] [place] [id number]. Cherjun Hernandez Lymphocytes/100 WBC (Bld) 17.4 % Critically low 20.5-60.0 [facility] Comment on above: Performed By: #### C BC ####[facility] Wchxgqvehs47[address] [place] [id number]. Ivette Hernandez MANUAL DIFF REQ NO Normal [facility] Comment on above: Performed By: #### C BC ####[facility] Sctwnxgiml4119 [place] [id number]. Ivette Hernandez MCH (RBC) [Entitic mass] 28.3 pg Normal 26.7-34.0 The [facility] Comment on above: Performed By: #### C BC ####[facility] Cybrjavrue[address] [place] [address]Dr. Ivette Hernandez MCHC (RBC) [Mass/Vol] 31.7 g/dL Normal 29.9-35.2 [facility] Comment on above: Performed By: #### C BC ####[facility] Kxcwotehgu2940 [place] [id number]. Ivette Hernandez MCV (RBC) [Entitic vol] 89.3 fL Normal 81.0-99.0 The [facility] Comment on above: Performed By: #### C BC ####[facility] Wurjhrowae9062 [place] [address]Dr. Ivette Hernandez MONO # 0.2 103/ul Critically low 0.3-0.8 The [facility] Comment on above: Performed By: #### C BC ####[facility] Trwuublijv3699 [place] [id number]. Ivette Hernandez Monocytes/100 WBC (Bld) 3.6 % Normal 1.7-12.0 The [facility] Comment on above: Performed By: #### C BC ####[facility] Ufxvecukvo2944 [place] [id number]. Ivette Hernandez NEUT # 4.6 103/ul Normal 1.4-6.5 The [facility] Comment on above: Performed By: #### C BC ####[facility] Rnxifofdxf6652 [place] [address]Dr. Ivette Hernandez Neutrophils/100 WBC (Bld) 78.1 % Critically high 43.0-75.0 [facility] Comment on above: Performed By: #### C BC ####[facility] Lhtogryxfp7547 [place] [address]Dr. Ivette Hernandez Platelet mean volume (Bld) [Entitic vol] 9.5 fL Normal 9.5-13.5 [facility] Comment on above: Performed By: #### C BC ####[facility] Oggfkaasaf7047 [place] [address]Dr. Ivette David PLT 195 103/ul Normal 150-450 [facility] Comment on above: Performed By: #### C BC ####[facility] Mdlfcntrmg9584 [place] [address]Dr. Ivette Hernandez RBC 2.90 106/ul Critically low 4.20-5.40 [facility] Comment on above: Performed By: #### C BC ####[facility] Orrghpqizy5158 [place] [address]Dr. Ivette Hernandez WBC 5.8 103/ul Normal 4.0-11.0 [facility] Comment on above: Performed By: #### C BC ####[facility] Ouateqsqbq[address] [place] [address]Dr. Ivette David ECHOCARDIO M/2D COMPLETEon 1 ECHOCARDIO M/2D COMPLETE Normal The [facility] PROF 14(COMP METB)on 022 Albumin [Mass/Vol] 2.3 g/dL Critically low 3.4-5.[address] [facility] Comment on above: Performed By: #### C MP ####[facility] Rxijyeqlbc2875 [place] [address]Dr. Ivette David Albumin/Globulin [Mass ratio] 0.6 {ratio} Normal The [facility] Comment on above: Performed By: #### C MP ####[facility] Wkadunmows7844 [place] [address]Dr. Ivette David ALP [Catalytic activity/Vol] 67 U/L Normal 46-116 [facility] Comment on above: Performed By: #### C MP ####[facility] Mzomjrytdq[address] [place], [place] [address]Dr. Ivette Hernandez ALT [Catalytic activity/Vol] 15 U/L Normal 14-59 [facility] Comment on above: Performed By: #### C MP ####[facility] Dmnefzywba645[address] [place], [place] [address]Dr. Ivette Hernandez Anion gap [Moles/Vol] 7.6 mmol/L Normal [facility] Comment on above: Performed By: #### C MP ####[facility] Ztmrtxjewo306[address] [place], [place] [address]Dr. Ivette Hernandez AST [Catalytic activity/Vol] 12 U/L Critically low 15-37 [facility] Comment on above: Performed By: #### C MP ####[facility] Bnityyvfar734[address] [place], [place] [address]Dr. Ivette Hernandez Bilirubin [Mass/Vol] 0.3 mg/dL Normal 0.2-1.0 [facility] Comment on above: Performed By: #### C MP ####[facility] Gdtdjlcxjr9[address] [place], [place] [address]Dr. Ivette Hernandez Calcium [Mass/Vol] 6.3 mg/dL Critically low 8.5-10.1 Th e [facility] Comment on above: Performed By: #### C MP ####[facility] Uoxcxipwlm5[address] [place], [place] [address]Dr. Ivette Hernandez Chloride [Moles/Vol] 104 mmol/L Normal 98-107 [facility] Comment on above: Performed By: #### C MP ####[facility] Wsshidsqbn6438[address] [place], [place] [address]Dr. Ivette Hernandez CO2 [Moles/Vol] 34.8 mmol/L Critically high 21.0-32.0 The [facility] Comment on above: Performed By: #### C MP ####[facility] Nyldlvjxvi356[address] [place], [place] [address]Dr. Ivette Hernandez Creatinine [Mass/Vol] 1.30 mg/dL Critically high 0.55-1.02 [facility] Comment on above: Performed By: #### C MP ####[facility] Fuobdvdbzx7505 [place] [address]Dr. Ivette David EGFR-AF KUWAITI 49 mL/min/1.73m2 Critically low >=60 [facility] Comment on above: Performed By: #### C MP ####[facility] Huywpnmmnj4920 [place] [address]Dr. Cherjun David EGFR-NON AF KUWAITI 40 mL/min/1.73m2 Critically low >=60 [facility] Comment on above: Performed By: #### C MP ####[facility] Ahvzeezblu112[address] [place], [place] [address]Dr. Ivette Hernandez Globulin (S) [Mass/Vol] 4.1 g/dL Normal [facility] Comment on above: Performed By: #### C MP ####[facility] Ocmzwfmfht127[address] [place], [place] [address]Dr. Ivette Hernandez Glucose [Mass/Vol] 130 mg/dL Critically high 74-106 [facility] Comment on above: Performed By: #### C MP ####[facility] Qtvakpppru765[address] [place], [place] [address]Dr. Ivette Hernandez Potassium [Moles/Vol] 3.4 mmol/L Critically low 3.5-5.1 The [facility] Comment on above: Performed By: #### C MP ####[facility] Ohcfrsbokx7[address] [place], [place] [address]Dr. Ivette Hernandez Protein [Mass/Vol] 6.4 g/dL Normal 6.4-8.2 The [facility] Comment on above: Performed By: #### C MP ####[facility] Epcmpmzauq7824[address] [place], [place] [address]Dr. Ivette Hernandez Sodium [Moles/Vol] 143 mmol/L Normal 136-145 [facility] Comment on above: Performed By: #### C MP ####[facility] Nnbehuhonk094[address] [place], [place] [address]Dr. Ivette Hernandez Urea nitrogen [Mass/Vol] 24.0 mg/dL Critically high 7.0-18.0 The [facility] Comment on above: Performed By: #### C MP ####[facility] Hyunrnmdhx3760[address] [place], [place] [address]Dr. Ivette Hernandez Urea nitrogen/Creatinine [Mass ratio] 18.5 mg/mg Normal [facility] Comment on above: Performed By: #### C MP ####[facility] Uyrjwnyanx774[address] [place], [place] [address]Dr. Ivette Hernandez US KIDNEYS BLADDERon 022 US KIDNEYS BLADDER Normal [facility] BNPon 02-25-2022 Natriuretic peptide B (Bld) [Mass/Vol] 10111.0 pg/mL Critically high <=900.0 The [facility] Comment on above: Performed By: #### M G, BMP, BNP ####[facility] Fhmgmrkknr95[address] [place], [place] [address]Dr. Ivette Hernandez CBC AUTO DIFFon 02-25-2022 BASO # 0.0 103/ul Normal 0.0-0.1 [facility] Comment on above: Performed By: #### C BC ####[facility] Wainpfvrlk85[address] [place], [place] [address]Dr. Ivette David Basophils/100 WBC (Bld) 0.4 % Normal 0.2-2.0 [facility] Comment on above: Performed By: #### C BC ####[facility] Khrfssqayg[address] [place], [place] [address]Dr. Ivette Hernandez EO # 0.1 103/ul Normal 0.0-0.7 The [facility] Comment on above: Performed By: #### C BC ####[facility] Rrrfslvapt69[address] [place], [place] [address]Dr. Ivette David Eosinophils/100 WBC (Bld) 0.8 % Critically low 0.9-7.0 The [facility] Comment on above: Performed By: #### C BC ####[facility] Berpwcttrd005[address] [place], [place] [address]Dr. Ivette David Erythrocyte distribution width (RBC) [Ratio] 14.3 % Normal 11.0-15.0 [facility] Comment on above: Performed By: #### C BC ####[facility] Eezxirpkfs8048 [place] [address]DrJesse Hernandez Hematocrit (Bld) [Volume fraction] 29.3 % Critically low 36.0-48.0 [facility] Comment on above: Performed By: #### C BC ####[facility] Lrksijnbln29[address] [place], [place] [address]DrJesse Hernandez Hemoglobin (Bld) [Mass/Vol] 9.2 g/dL Critically low 12.0-16.0 [facility] Comment on above: Performed By: #### C BC ####[facility] Ugtjzepqvb[address] [place], [place] [address]DrJesse Hernandez IG # 0.04 10e3/ul Critically high 0.00-0.03 [facility] Comment on above: Performed By: #### C BC ####[facility] Vrzrkiyehu[address] [place], [place] [address]DrJesse Hernandez IG % 0.4 % Normal 0.0-0.5 [facility] Comment on above: Performed By: #### C BC ####[facility] Hzdeepnskw379[address] [place], [place] [address]DrJesse Hernandez LYMPH # 1.9 103/ul Normal 1.2-3.8 [facility] Comment on above: Performed By: #### C BC ####[facility] Dmwlrhavgf70[address] [place], [place] [address]DrJesse Hernandez Lymphocytes/100 WBC (Bld) 17.5 % Critically low 20.5-60.0 [facility] Comment on above: Performed By: #### C BC ####[facility] Ptlhnwlwzb5940[address] [place], [place] [address]DrJesse Hernandez MANUAL DIFF REQ NO Normal [facility] Comment on above: Performed By: #### C BC ####[facility] Bvhdimsosc460[address] [place], [place] [address]DrJesse Hernandez MCH (RBC) [Entitic mass] 28.6 pg Normal 26.7-34.0 [facility] Comment on above: Performed By: #### C BC ####[facility] Qmchfancdk6555 [place] [address]DrJesse Hernandez MCHC (RBC) [Mass/Vol] 31.4 g/dL Normal 29.9-35.2 The [facility] Comment on above: Performed By: #### C BC ####[facility] Dgeyfedkcn9063 [place] [address]DrJesse Hernandez MCV (RBC) [Entitic vol] 91.0 fL Normal 81.0-99.0 [facility] Comment on above: Performed By: #### C BC ####[facility] Tltasbjrsv54[address] [place], [place] [address]DrJesse Hernandez MONO # 0.6 103/ul Normal 0.3-0.8 [facility] Comment on above: Performed By: #### C BC ####[facility] Vsvlqualbp217[address] [place], [place] [address]DrJesse Hernandez Monocytes/100 WBC (Bld) 5.4 % Normal 1.7-12.0 [facility] Comment on above: Performed By: #### C BC ####[facility] Zigmmfbdjx824[address] [place], [place] [address]DrJesse Hernandez NEUT # 8.1 103/ul Critically high 1.4-6.5 The [facility] Comment on above: Performed By: #### C BC ####[facility] Bfdbzlmccr550[address] [place], [place] [address]DrJesse Hernandez Neutrophils/100 WBC (Bld) 75.5 % Critically high 43.0-75.0 [facility] Comment on above: Performed By: #### C BC ####[facility] Mfbnnkroih534[address] [place], [place] [address]DrJesse Hernandez Platelet mean volume (Bld) [Entitic vol] 9.7 fL Normal 9.5-13.5 [facility] Comment on above: Performed By: #### C BC ####[facility] Yzzmkeooud[address] [place], [place] [address]DrJesse Hernandez PLT 242 103/ul Normal 150-450 [facility] Comment on above: Performed By: #### C BC ####[facility] Mxltrjpddd4300 [place] [address]Dr. Ivette Hernandez RBC 3.22 106/ul Critically low 4.20-5.40 [facility] Comment on above: Performed By: #### C BC ####[facility] Aukdzwrjqd5757 [place] [address]Dr. Ivette Hernandez WBC 10.8 103/ul Normal 4.0-11.0 [facility] Comment on above: Performed By: #### C BC ####[facility] Lpnyygzjwn0235 [place] [address]Dr. Ivette Hernandez MAGNESIUMon 02-25-2022 Magnesium [Mass/Vol] 1.3 mg/dL Critically low 1.8-2.4 [facility] Comment on above: Performed By: #### M MYRNA Aranda, BNP ####[facility] Ajqzetgszp9825[address] [place], [place] [address]Dr. Ivette Hernandez POINT OF CARE GLUCOSEon 02-01 Glucose [Mass/Vol] 191 mg/dL Critically high 74-106 [facility] Comment on above: Performed By: #### P OCGLUC ####[facility] Uxnbtygbbq54[address] [place], [place] [address]Dr. Ivette Hernandez PROF CHEM 8 (BAS METB)on Anion gap [Moles/Vol] 7.7 mmol/L Normal [facility] Comment on above: Performed By: #### M Rosi BMP, BNP ####[facility] Vthaviwsgq4690 [place] [address]Dr. Ivette Hernandez Calcium [Mass/Vol] 6.4 mg/dL Critically low 8.5-10.1 Th [facility] Comment on above: Performed By: #### M Rosi BMP, BNP ####[facility] Fdpleyuzlr3770 [place] [address]Dr. Cherjun Hernandez Chloride [Moles/Vol] 105 mmol/L Normal 98-107 [facility] Comment on above: Performed By: #### Chris Aranda BMP, BNP ####[facility] Nidukxnvic0860 [place] [address]Dr. Ivette Hernandez CO2 [Moles/Vol] 37.4 mmol/L Critically high 21.0-32.0 [facility] Comment on above: Performed By: #### Chris Aranda, BMP, BNP ####[facility] Nutpilfhob908[address] [place], [place] [address]Dr. Cherjun David Creatinine [Mass/Vol] 1.41 mg/dL Critically high 0.55-1.02 [facility] Comment on above: Performed By: #### Chris Aranda, BMP, BNP ####[facility] Ptpculvxkb15[address] [place], [place] [address]Dr. Ivette Hernandez EGFR-AF KUWAITI 44 mL/min/1.73m2 Critically low >=60 [facility] Comment on above: Performed By: #### Chris Aranda BMP, BNP ####[facility] Agfosdwqnu380[address] [place], [place] [address]Dr. Ivette Hernandez EGFR-NON AF KUWAITI 37 mL/min/1.73m2 Critically low >=60 [facility] Comment on above: Performed By: #### Chris Aranda BMP, BNP ####[facility] Gicuockybd[address] [place], [place] [address]Dr. Ivette Hernandez Glucose [Mass/Vol] 132 mg/dL Critically high 74-106 [facility] Comment on above: Performed By: #### Chris Aranda BMP, BNP ####[facility] Xaxhwbvgef[address] [place], [place] [address]Dr. Ivette Hernandez Potassium [Moles/Vol] 3.1 mmol/L Critically low 3.5-5.1 [facility] Comment on above: Performed By: #### Chris Aranda BMP, BNP ####[facility] Diioqpwijs023[address] [place], [place] [address]Dr. Ivette Hernandez Sodium [Moles/Vol] 147 mmol/L Critically high 136-145 [facility] Comment on above: Performed By: #### Chris Aranda, BMP, BNP ####[facility] Sbbmbajkln[address] [place], [place] [address]Dr. Ivette Hernandez Urea nitrogen [Mass/Vol] 15.0 mg/dL Normal 7.0-18.0 [facility] Comment on above: Performed By: #### M G, BMP, BNP ####[facility] Ncmxjlbveb1368 [place] [id number]. Ivette Hernandez Urea nitrogen/Creatinine [Mass ratio] 10.6 mg/mg Normal [facility] Comment on above: Performed By: #### M G, BMP, BNP ####[facility] Ahqbhieffc02[address] [place] [address]Dr. Ivette Hernandez TROPONIN, HIGH SENSITIVITYon 02-25-2022 HSTROP 15.5 pg/mL Normal 4.0-51.3 [facility] Comment on above: Result Comment: CUT- OFF POINTS HAVE BEEN ESTABLISHED BASED ON THE FOURTH UNIVERSAL DEFINITIONS OF MYOCARDIALINFARCTION. THE UPPER REFERENCE LIMIT (URL) OF TROPONIN, DEFINED THE 99TH PERCENTILE OFcTnI DISTRIBUTION IN A REFERENCE POPULATION, HAS BEEN CONFIRMED THE DECISION THRESHOLDFOR LA DIAGNOSIS. Performed By: #### H STROPN ####[facility] Xbprxgcmlq8181 [place] [address]Dr. Ivette Hernandez HSTROP 17.6 pg/mL Normal 4.0-51.3 [facility] Comment on above: Result Comment: CUT- OFF POINTS HAVE BEEN ESTABLISHED BASED ON THE FOURTH UNIVERSAL DEFINITIONS OF MYOCARDIALINFARCTION. THE UPPER REFERENCE LIMIT (URL) OF TROPONIN, DEFINED THE 99TH PERCENTILE OFcTnI DISTRIBUTION IN A REFERENCE POPULATION, HAS BEEN CONFIRMED THE DECISION THRESHOLDFOR LA DIAGNOSIS. Performed By: #### H STROPN ####[facility] Zzjarbfrqv3587 [place] [id number]. Ivette Hernandez BNPon 02-24-2022 Natriuretic peptide B (Bld) [Mass/Vol] 60879.0 pg/mL Critically high <=900.0 [facility] Comment on above: Performed By: #### B MEDICAL SECRETARY, HSTROPN, CMP ####[facility] Vukuzjdsvh7701 [place] [id number]. Ivette Hernandez CBC AUTO DIFFon 02-24-2022 BASO # 0.1 103/ul Normal 0.0-0.1 [facility] Comment on above: Performed By: #### C BC ####[facility] Acgxaftipo[address] [place], [place] [address]Dr. Ivette David Basophils/100 WBC (Bld) 0.5 % Normal 0.2-2.0 [facility] Comment on above: Performed By: #### C BC ####[facility] Vdqmifnrdo99[address] [place], [place] [address]Dr. Ivette Hernandez EO # 0.2 103/ul Normal 0.0-0.7 [facility] Comment on above: Performed By: #### C BC ####[facility] Oafhcordad95[address] [place], [place] [address]Dr. Ivette Hernandez Eosinophils/100 WBC (Bld) 2.3 % Normal 0.9-7.0 [facility] Comment on above: Performed By: #### C BC ####[facility] Qedcxvpoua845[address] [place], [place] [address]Dr. Ivette Hernandez Erythrocyte distribution width (RBC) [Ratio] 14.2 % Normal 11.0-15.0 [facility] Comment on above: Performed By: #### C BC ####[facility] Skskgofhfe97[address] [place], [place] [address]Dr. Ivette David Hematocrit (Bld) [Volume fraction] 30.2 % Critically low 36.0-48.0 [facility] Comment on above: Performed By: #### C BC ####[facility] Xmbmxkkkzj4467[address] [place], [place] [address]Dr. Cherjun David Hemoglobin (Bld) [Mass/Vol] 9.3 g/dL Critically low 12.0-16.0 [facility] Comment on above: Performed By: #### C BC ####[facility] Pdlyllaafd09[address] [place], [place] [address]Dr. Ivette Hernandez IG # 0.04 10e3/ul Critically high 0.00-0.03 [facility] Comment on above: Performed By: #### C BC ####[facility] Vjdbvqbtvb[address] [place], [place] [address]Dr. Ivette Hernandez IG % 0.4 % Normal 0.0-0.5 [facility] Comment on above: Performed By: #### C BC ####[facility] Asaamjjszx5568 [place] [id number] Ivette David LYMPH # 2.6 103/ul Normal 1.2-3.8 [facility] Comment on above: Performed By: #### C BC ####[facility] Qndptwwqni2607 [place] [id number]. Cherjun Hernandez Lymphocytes/100 WBC (Bld) 27.1 % Normal 20.5-60.0 [facility] Comment on above: Performed By: #### C BC ####[facility] Ducznpubjf0423 [place] [address]DrJesse Cherjun Hernandez MANUAL DIFF REQ NO Normal [facility] Comment on above: Performed By: #### C BC ####[facility] Y[address]wmoimei[address] [place], [place] [id number]. Cherjun Hernandez MCH (RBC) [Entitic mass] 27.8 pg Normal 26.7-34.0 [facility] Comment on above: Performed By: #### C BC ####[facility] Cxkbsxlbse[address] [place], [place] [address]Dr. Ivette David MCHC (RBC) [Mass/Vol] 30.8 g/dL Normal 29.9-35.2 [facility] Comment on above: Performed By: #### C BC ####[facility] [address]oxefjxqo[address] [place], [place] [address]Dr. Cherjun Hernandez MCV (RBC) [Entitic vol] 90.4 fL Normal 81.0-99.0 [facility] Comment on above: Performed By: #### C BC ####[facility] [address]srdxjypeq[address] [place], [place] [address]DrJesse Hernandez MONO # 0.6 103/ul Normal 0.3-0.8 [facility] Comment on above: Performed By: #### C BC ####[facility] Zlvoixiive3330 [place] [id number]. Ivette Hernandez Monocytes/100 WBC (Bld) 6.1 % Normal 1.7-12.0 [facility] Comment on above: Performed By: #### C BC ####[facility] Cbujgnsujq2415 [place] [address]Dr. Ivette Hernandez NEUT # 6.1 103/ul Normal 1.4-6.5 [facility] Comment on above: Performed By: #### C BC ####[facility] Xonbxjlsrz0586 [place] [address]Dr. Ivette Hernandez Neutrophils/100 WBC (Bld) 63.6 % Normal 43.0-75.0 [facility] Comment on above: Performed By: #### C BC ####[facility] Txpfjicdie9997 [place] [address]Dr. Ivette Hernandez Platelet mean volume (Bld) [Entitic vol] 9.2 fL Critically low 9.5-13.5 [facility] Comment on above: Performed By: #### C BC ####[facility] Wsbfpkniaq3078 [place] [address]Dr. Ivette Hernandez PLT 267 103/ul Normal 150-450 [facility] Comment on above: Performed By: #### C BC ####[facility] Ktprcxzgvi[address] [place], [place] [address]Dr. Ivette Hernandez RBC 3.34 106/ul Critically low 4.20-5.40 [facility] Comment on above: Performed By: #### C BC ####[facility] Dlugouftyj9144 [place] [address]Dr. Ivette Hernandez WBC 9.6 103/ul Normal 4.0-11.0 [facility] Comment on above: Performed By: #### C BC ####[facility] Apezgkmxkw[address] [place], [place] [address]Dr. Ivette Hernandez Covid-19 PCR ([facility])on 02-01 SARS-CoV-2 (COVID-19) RNA MARRY+probe Ql (Unsp spec) Not detected Normal NOT DETECTED [facility] Comment on above: Result Comment: When [...] for this test is supported by the Director Of Corporate Sales of Health and Human Service's declaration that [...] be used). Performed By: #### C VDTBH ####[facility] Ornlkcouoz57[address] [place] [address]Dr. Ivette Hernandez IRON AND TIBCon 02-24-2022 % SATURATION 13.8 % Normal [facility] Comment on above: Performed By: #### V ITAD, FETIBC, B12FOL ####[facility] Pekcdyxlbd1135 [place] [address]Dr. Ivette Hernandez Iron [Mass/Vol] 26.0 ug/dL Critically low 50.0-170.0 [facility] Comment on above: Performed By: #### V ITAD, FETIBC, B12FOL ####[facility] Coewsutoic475[address] [place] [address]Dr. Cherjun Hernandez TIBC DIRECT 188.0 ug/dL Critically low 250.0-450.0 [facility] Comment on above: Performed By: #### V ITAD, FETIBC, B12FOL ####[facility] Itiwmzxlud0054 [place] [address]Dr. Ivette Hernandez PROF 14(COMP METB)on 022 Albumin [Mass/Vol] 2.6 g/dL Critically low 3.4-5.[address] [facility] Comment on above: Performed By: #### B MEDICAL SECRETARY, HSTROPN, CMP ####[facility] Pssrlndgkc1274 [place] [address]Dr. Ivette Hernandez Albumin/Globulin [Mass ratio] 0.6 {ratio} Normal [facility] Comment on above: Performed By: #### B MEDICAL SECRETARY, RADHATROPN, CMP ####[facility] Wwubcblcoc8152 [place] [address]Dr. Ivette Hernandez ALP [Catalytic activity/Vol] 79 U/L Normal 46-116 [facility] Comment on above: Performed By: #### B MEDICAL SECRETARY, HSTROPN, CMP ####[facility] Ydjyoskucz5517 [place] [address]Dr. Ivette Hernandez ALT [Catalytic activity/Vol] 18 U/L Normal 14-59 [facility] Comment on above: Performed By: #### B MEDICAL SECRETARY, HSTROPN, CMP ####[facility] Jsoacvmwia4829 [place] [address]Dr. Ivette Hernandez Anion gap [Moles/Vol] 7.4 mmol/L Normal [facility] Comment on above: Performed By: #### B MEDICAL SECRETARY, HSTROPN, CMP ####[facility] Oqniqfzuyu7104 [place] [address]Dr. Ivette Hernandez AST [Catalytic activity/Vol] 14 U/L Critically low 15-37 [facility] Comment on above: Performed By: #### B MEDICAL SECRETARY, HSTROPN, CMP ####[facility] Pvboyrdyth3371 [place] [address]Dr. Ivette Hernandez Bilirubin [Mass/Vol] 0.4 mg/dL Normal 0.2-1.0 [facility] Comment on above: Performed By: #### B MEDICAL SECRETARY, HSTROPN, CMP ####[facility] Nhrzjwiotl4827 [place] [address]Dr. Ivette Hernandez Calcium [Mass/Vol] 6.3 mg/dL Critically low 8.5-10.1 [facility] Comment on above: Performed By: #### B MEDICAL SECRETARY, HSTROPN, CMP ####[facility] Rptmxrppdg4379 [place] [address]Dr. Ivette Hernandez Chloride [Moles/Vol] 108 mmol/L Critically high 98-107 [facility] Comment on above: Performed By: #### B MEDICAL SECRETARY, HSTROPN, CMP ####[facility] Ujurzjekza8752 [place] [address]Dr. Ivette Hernandez CO2 [Moles/Vol] 31.7 mmol/L Normal 21.0-32.0 [facility] Comment on above: Performed By: #### B MEDICAL SECRETARY, HSTROPN, CMP ####[facility] T[address] [place], [place] [address]Dr. Ivette Hernandez Creatinine [Mass/Vol] 1.50 mg/dL Critically high 0.55-1.02 [facility] Comment on above: Performed By: #### B MEDICAL SECRETARY, HSTROPN, CMP ####[facility] Tr[address] [place], [place] [address]Dr. Ivette Hernandez EGFR-AF KUWAITI 41 mL/min/1.73m2 Critically low >=60 [facility] Comment on above: Performed By: #### B MEDICAL SECRETARY, HSTROPN, CMP ####[facility] Bnls[address] [place], [place] [address]Dr. Ivette David EGFR-NON AF KU[place]I 34 mL/min/1.73m2 Critically low >=60 [facility] Comment on above: Performed By: #### B MEDICAL SECRETARY, HSTROPN, CMP ####[facility] [address] [place], [place] [address]Dr. Ivette Hernandez Globulin (S) [Mass/Vol] 4.3 g/dL Normal [facility] Comment on above: Performed By: #### B MEDICAL SECRETARY, HSTROPN, CMP ####[facility] Peuafqhlfy2503 [place] [address]Dr. Ivette Hernandez Glucose [Mass/Vol] 116 mg/dL Critically high 74-106 [facility] Comment on above: Performed By: #### B MEDICAL SECRETARY, HSTROPN, CMP ####[facility] Qjdywcwpgv2131 [place] [address]Dr. Cherjun Hernandez Potassium [Moles/Vol] 3.1 mmol/L Critically low 3.5-5.1 [facility] Comment on above: Performed By: #### B MEDICAL SECRETARY, HSTROPN, CMP ####[facility] Ijmkcypnpo8548 [place] [address]Dr. Ivette Hernandez Protein [Mass/Vol] 6.9 g/dL Normal 6.4-8.2 [facility] Comment on above: Performed By: #### B MEDICAL SECRETARY, HSTROPN, CMP ####[facility] Symysgwbgv8451 [place] [address]Dr. Ivette Hernandez Sodium [Moles/Vol] 144 mmol/L Normal 136-145 [facility] [place] Comment on above: Performed By: #### B MEDICAL SECRETARY, HSTROPN, CMP ####[facility] Dmtdmhuttl7758 [place] [address]Dr. Ivette Hernandez Urea nitrogen [Mass/Vol] 16.0 mg/dL Normal 7.0-18.0 [facility] Comment on above: Performed By: #### B MEDICAL SECRETARY, HSTROPN, CMP ####[facility] Pjpow[address]xcd[address] [place], [place] [address]Dr. Ivette Hernandez Urea nitrogen/Creatinine [Mass ratio] 10.7 mg/mg Normal [facility] Comment on above: Performed By: #### B MEDICAL SECRETARY, HSTROPN, CMP ####[facility] Sysn[address] [place], [place] [address]Dr. Ivette Hernandez TROPONIN, HIGH SENSITIVITYon 02-24-2022 HSTROP 20.8 pg/mL Normal 4.0-51.3 [facility] Comment on above: Result Comment: CUT- OFF POINTS HAVE BEEN ESTABLISHED BASED ON THE FOURTH UNIVERSAL DEFINITIONS OF MYOCARDIALINFARCTION. THE UPPER REFERENCE LIMIT (URL) OF TROPONIN, DEFINED THE 99TH PERCENTILE OFcTnI DISTRIBUTION IN A REFERENCE POPULATION, HAS BEEN CONFIRMED THE DECISION THRESHOLDFOR LA DIAGNOSIS. Performed By: #### B MEDICAL SECRETARY, HSTROPN, CMP ####[facility] Y[address] [place], [place] [address]Dr. Ivette Hernandez VIT B12 AND FOLATEon 2021 Cobalamin (Vitamin B12) [Mass/Vol] 930.0 pg/mL Normal 193.0-986.0 [facility] Comment on above: Performed By: #### V ITAD, FETIBC, B12FOL ####[facility] Mkpvyhdpdn4401 [place] [id number]. Ivette Hernandez FOLATE 22.30 ng/mL Normal 8.60-58.90 [facility] Comment on above: Performed By: #### V ITAD, FETIBC, B12FOL ####[facility] Inaihlkweq[address]120 [place] [id number]. Ivette David VITAMIN D 25 OHon 02-24-2022 VIT D 25-OH 35.4 ng/mL Normal [facility] Comment on above: Performed By: #### V ITAD, FETIBC, B12FOL ####[facility] Jcnrgdgmho1600 [place] [address]Dr. Ivette David VIT D RANGES SEE BELOW Normal [facility] Comment on above: Result Comment: <20 ng/mL Vit D deficient 20 - <30 ng/mL Vit D insufficient 30 - 100 ng/mL Vit D sufficient >100 ng/mL Potential Toxicity Performed By: #### V ITAD, FETIBC, B12FOL ####[facility] Xhhyzhvgds2681 [place] [id number]. Ivette Hernandez XR CHEST 1 Von 02-24-2022 XR CHEST 1 V Normal [facility] CHEMISTRYOrdered By: SYSTEM SYSTEM on 02-06-2022 Creatinine [Mass/Vol] 1.5 mg/dL High 0.5 - 1.3 mg/dL [facility] Remisol GFR/1.73 sq M.predicted among blacks MDRD (S/P/Bld) [Vol rate/Area] 41 mL/min/1.73 m2 Low >=59mL/min/ 1.73 m2 [facility] Chem S GFR/1.73 sq M.predicted among non-blacks MDRD (S/P/Bld) [Vol rate/Area] 34 mL/min/1.73 m2 Low >=59mL/min/ 1.73 m2 [facility] Chem S Covid-19 PCR (CVDTBH)on 11-01 SARS-CoV-2 (COVID-19) RNA MARRY+probe Ql (Unsp spec) Detected Critically abnormal NOT DETECTED [facility] Comment on above: Result Comment: This test is not yet approved or cleared by the [place] FDA. When there are no FDA-approved or cleared tests available, and other criteria are met, FDA can make tests available under an emergency access mechanism called an Emergency Use Authorization (EUA). The EUA for this test is supported by the [place] of Health and Human Service's (HHS's) declaration [...] longer be used). Performed By: #### [facility] ####[facility] [address] [place], [place] [address]Ln. Cherjun [facility] Metabolic Pane marky 10-03-2021 Albumin [Mass/Vol] 3.3 g/dL Low 3.6-5.1 [facility] Specialist Comment on above: Performed By: #### C MP #### [facility] [address] [place], [place] [id number] Albumin/Globulin [Mass ratio] 1.5 {ratio} Normal 1.0-2.5 [facility] Comment on above: Performed By: #### C MP #### [facility] [address] [place], [place] [id number] ALP [Catalytic activity/Vol] 56 U/L Normal 35-119 [facility] Comment on above: Performed By: #### C MP #### [facility] [address] [place], [place] [id number] ALT [Catalytic activity/Vol] 10 U/L Normal 6-33 [facility] Comment on above: Result Comment: 04/02 Female reference range changed. Performed By: #### C MP #### [facility] [address] [place], [place] [id number] Anion gap [Moles/Vol] 15 mmol/L Normal 12-20 [facility] Comment on above: Result Comment: Effe ctive 05/08/2019 reference range changed. Performed By: #### C MP #### [facility] [address] [place], [place] [id number] AST [Catalytic activity/Vol] 15 U/L Normal 9-34 [facility] Comment on above: Performed By: #### C MP #### [facility] [address] [place], [place] [id number] BUN/CREA 15 Ratio Normal 6-22 [facility] Comment on above: Performed By: #### C MP #### [facility] [address] [place], [place] [id number] Calcium [Mass/Vol] 6.2 mg/dL Low 8.6-10.2 [facility] Comment on above: Performed By: #### C MP #### [facility] [address] [place], [place] [id number] Chloride [Moles/Vol] 108 mmol/L High 98-107 [facility] Comment on above: Performed By: #### C MP #### [facility] [address] [place], [place] [id number] CO2 [Moles/Vol] 24 mmol/L Normal 20-31 [facility] Comment on above: Performed By: #### C MP #### [facility] [address] [place], [place] [id number] Creatinine [Mass/Vol] 1.9 mg/dL High 0.6-1.4 [facility] Comment on above: Performed By: #### C MP #### [facility] [address] [place], [place] [id number] eGFRAA 31 mL/min/1.73m2 Low >60 [facility] Comment on above: Performed By: #### C MP #### [facility] [address] [place], [place] [id number] eGFRNAA 26 mL/min/1.73m2 Low >60 [facility] Comment on above: Performed By: #### C MP #### [facility] [address] [place], [place] [id number] Globulin (S) [Mass/Vol] 2.2 g/dL Normal 1.9-3.7 [facility] Comment on above: Performed By: #### C MP #### [facility] [address] [place], [place] [id number] Glucose [Mass/Vol] 107 mg/dL High 65-99 [facility] Comment on above: Result Comment: For FASTING Glucose --- ADA reference ranges: Normal 65-99 mg/dl Prediabetes 100-125 Diabetes >/= 126 Performed By: #### C MP #### [facility] [address] [place], [place] [id number] Potassium [Moles/Vol] 4.3 mmol/L Normal 3.5-5.5 [facility] Comment on above: Performed By: #### C MP #### [facility] [address] [place], [place] [id number] Protein [Mass/Vol] 5.5 g/dL Low 6.1-8.1 [facility] Specialist Comment on above: Performed By: #### C MP #### [facility] [address] [place], [place] [id number] Sodium [Moles/Vol] 143 mmol/L Normal 135-146 [facility] Specialist Comment on above: Performed By: #### C MP #### [facility] [address] [place], [place] [id number] TBIL <0.3 Normal [facility] Comment on above: Performed By: #### C MP #### [facility] [address] [place], [place] [id number] Urea nitrogen [Mass/Vol] 29 mg/dL High 7-25 [facility] Specialist Comment on above: Performed By: #### C MP #### [facility] [address] [place], [place] [id number] Q - B-TYPE NATRIURETIC (BNP) on 10-03-2021 Natriuretic peptide B (Bld) [Mass/Vol] 248 pg/mL High <100 [facility] Specialist Comment on above: Order Comment: [facility] performed at: [employer], [facility], [address] [facility], [address] [place] [address], [place], [address], Yacht Hand: Chon Manzano MD [facility] Collection Date/Time: [facility] Results Received Date/Time: [facility] Reported Date/Time: Result Comment: BNP levels increase with age in the general population with the highest values seen in individuals greater than 75 years of age. Reference: J. Am. Dylan. Cardiol. 2002; 40:976-982. Performed By: #### [id number] #### [facility] [address] [place] [address] Complete Blood Counton 09-11 Erythrocyte distribution width (RBC) [Ratio] 14.3 % Normal 11.0-15.0 [facility] Specialist Comment on above: Performed By: #### C MP, CBC #### [facility] [address] [place], [place] [id number] Hematocrit (Bld) [Volume fraction] 30.1 % Low 35.0-47.0 [facility] Comment on above: Performed By: #### C MP, CBC #### [facility] [address] [place], [place] [id number] Hemoglobin (Bld) [Mass/Vol] 9.1 g/dL Low 11.6-15.5 [facility] Special[facility] Comment on above: Performed By: #### C MP, CBC #### [facility] [address] [place], [place] [id number] MCH (RBC) [Entitic mass] 28.7 pg Normal 27.0-33.0 [facility] Special[facility] Comment on above: Performed By: #### C MP, CBC #### [facility] [address] [place], [place] [id number] MCHC (RBC) [Mass/Vol] 30.2 g/dL Low 32.0-36.0 [facility] Comment on above: Performed By: #### C MP, CBC #### [facility] [address] [place], [place] [id number] MCV (RBC) [Entitic vol] 95 fL Normal 80-100 [facility] Special[facility] Comment on above: Performed By: #### C MP, CBC #### [facility] [address] [place], [place] [id number] Platelet mean volume (Bld) [Entitic vol] 9.60 fL Normal 7.50-12.50 [facility] Comment on above: Performed By: #### C MP, CBC #### [facility] [address] [place], [place] [id number] Platelets (Bld) [#/Vol] 219 10*3/uL Normal 140-400 [facility] Comment on above: Performed By: #### C MP, CBC #### [facility] [address] [place], [place] [id number] RBC (Bld) [#/Vol] 3.17 10*6/uL Low 3.90-5.20 [facility] Comment on above: Performed By: #### C MP, CBC #### [facility] [address] [place], [place] [id number] RDW-SD 49.8 fL Normal 37.0-50.0 [facility] Comment on above: Performed By: #### C MP, CBC #### [facility] [address] [place], [place] [id number] WBC (Bld) [#/Vol] 11.0 10*3/uL Normal 3.8-11.0 [facility] Comment on above: Performed By: #### C MP, CBC #### [facility] [address] [place], [place] [id number] Comprehensive Metabolic Pane [facility] 09-11-2021 Albumin [Mass/Vol] 3.4 g/dL Low 3.6-5.1 [facility] Comment on above: Performed By: #### C MP, CBC #### [facility] [address] [place], [place] [id number] Albumin/Globulin [Mass ratio] 1.5 {ratio} Normal 1.0-2.5 [facility] Comment on above: Performed By: #### C MP, CBC #### [facility] [address] [place], [place] [id number] ALP [Catalytic activity/Vol] 65 U/L Normal 35-119 [facility] Comment on above: Performed By: #### C MP, CBC #### [facility] [address] [place], [place] [id number] ALT [Catalytic activity/Vol] 52 U/L High 6-33 [facility] Comment on above: Result Comment: 04/02 Female reference range changed. Performed By: #### C MP, CBC #### [facility] [address] [place], [place] [id number] Anion gap [Moles/Vol] 17 mmol/L Normal 12-20 [facility] Comment on above: Result Comment: Effata ctive 05/08/2019 reference range changed. Performed By: #### C MP, CBC #### [facility] [address] [place], [place] [id number] AST [Catalytic activity/Vol] 26 U/L Normal 9-34 [facility] Comment on above: Performed By: #### C MP, CBC #### [facility] [address] [place], [place] [id number] BUN/CREA 20 Ratio Normal 6-22 [facility] Comment on above: Performed By: #### C MP, CBC #### [facility] [address] [place], [place] [id number] Calcium [Mass/Vol] 7.1 mg/dL Low 8.6-10.2 [facility] Comment on above: Performed By: #### C MP, CBC #### [facility] [address] [place], [place] [id number] Chloride [Moles/Vol] 104 mmol/L Normal 98-107 [facility] Comment on above: Performed By: #### C MP, CBC #### [facility] [address] [facility] [place] [id number] CO2 [Moles/Vol] 27 mmol/L Normal 20-31 [facility] Comment on above: Performed By: #### C MP, CBC #### [facility] [address] [facility] [id number] Creatinine [Mass/Vol] 1.6 mg/dL High 0.6-1.4 [facility] Comment on above: Performed By: #### C MP, CBC #### [facility] [address] [facility] [id number] eGFRAA 38 mL/min/1.73m2 Low >60 [facility] Specialist Comment on above: Performed By: #### C MP, CBC #### [facility] [address] [place], [place] [id number] eGFRNAA 31 mL/min/1.73m2 Low >60 [facility] Specialist Comment on above: Performed By: #### C MP, CBC #### [facility] [address] [place], [place] [id number] Globulin (S) [Mass/Vol] 2.3 g/dL Normal 1.9-3.7 [facility] Special[facility] Comment on above: Performed By: #### C MP, CBC #### [facility] [address] [place], [place] [id number] Glucose [Mass/Vol] 216 mg/dL High 65-99 [facility] Specialist Comment on above: Result Comment: For FASTING Glucose --- ADA reference ranges: Normal 65-99 mg/dl Prediabetes 100-125 Diabetes >/= 126 Performed By: #### C MP, CBC #### [facility] [address] [place], [place] [id number] Potassium [Moles/Vol] 4.9 mmol/L Normal 3.5-5.5 [facility] Comment on above: Performed By: #### C MP, CBC #### [facility] [address] [place], [place] [id number] Protein [Mass/Vol] 5.7 g/dL Low 6.1-8.1 [facility] Specialist Comment on above: Performed By: #### C MP, CBC #### [facility] [address] [place], [place] [id number] Sodium [Moles/Vol] 143 mmol/L Normal 135-146 [facility] Specialist Comment on above: Performed By: #### C MP, CBC #### [facility] [address] [place], [place] [id number] TBIL <0.3 Normal [facility] Specialist Comment on above: Performed By: #### C MP, CBC #### [facility] [address] [place], [place] [id number] Urea nitrogen [Mass/Vol] 33 mg/dL High 7-25 [facility] Specialist Comment on above: Performed By: #### C MP, CBC #### [facility] [address] [place], [place] [id number] Q - B-TYPE NATRIURETIC (BNP) on 09-11-2021 Natriuretic peptide B (Bld) [Mass/Vol] 963 pg/mL High <100 [facility] [employer] Comment on above: Order Comment: [facility] performed at: [facility], [address], [address] [facility], [place], [address], Yacht Hand: Chon Manzano MD [facility] Collection Date/Time: [id number] [facility] Results Received Date/Time: [id number] [facility] Reported Date/Time: Result Comment: BNP levels increase with age in the general population with the highest values seen in individuals greater than 75 years of age. Reference: J. Am. Dylan. Cardiol. 2002; 40:976-982. Performed By: #### 3 [id number] #### [facility] [address] [place] [address] Complete Blood Counton 06-26 Erythrocyte distribution width (RBC) [Ratio] 14.9 % Normal 11.0-15.0 [facility] Specialist Comment on above: Performed By: #### C BC, CMP #### [facility] [address] [place], [place] [id number] Hematocrit (Bld) [Volume fraction] 29.4 % Low 35.0-47.0 [facility] Comment on above: Performed By: #### C BC, CMP #### [facility] [address] [place], [place] [id number] Hemoglobin (Bld) [Mass/Vol] 9.3 g/dL Low 11.6-15.5 [facility] Specialist Comment on above: Performed By: #### C BC, CMP #### [facility] [address] [place], [place] [id number] MCH (RBC) [Entitic mass] 29.3 pg Normal 27.0-33.0 [facility] Comment on above: Performed By: #### C BC, CMP #### [facility] [address] [place], [place] [id number] MCHC (RBC) [Mass/Vol] 31.6 g/dL Low 32.0-36.0 [facility] Comment on above: Performed By: #### C BC, CMP #### [facility] [address] [place], [place] [id number] MCV (RBC) [Entitic vol] 93 fL Normal 80-100 [facility] Specialist Comment on above: Performed By: #### C BC, CMP #### [facility] [address] [place], [place] [id number] Platelet mean volume (Bld) [Entitic vol] 9.60 fL Normal 7.50-12.50 [facility] Specialist Comment on above: Performed By: #### C BC, CMP #### [facility] [address] [place], [place] [id number] Platelets (Bld) [#/Vol] 228 10*3/uL Normal 140-400 [facility] Specialist Comment on above: Performed By: #### C BC, CMP #### [facility] [address] [place], [place] [id number] RBC (Bld) [#/Vol] 3.17 10*6/uL Low 3.90-5.20 [facility] Specialist Comment on above: Performed By: #### C BC, CMP #### [facility] [address] [place], [place] [id number] RDW-SD 51.3 fL High 37.0-50.0 [facility] Specialist Comment on above: Performed By: #### C BC, CMP #### [facility] [address] [place], [place] [id number] WBC (Bld) [#/Vol] 7.9 10*3/uL Normal 3.8-11.0 [facility] [employer] Comment on above: Performed By: #### C BC, CMP #### [facility] [address] [place], [place] [id number] Comprehensive Metabolic Pane marky 06-26-2021 Albumin [Mass/Vol] 4.0 g/dL Normal 3.6-5.1 [facility] [employer] Comment on above: Performed By: #### C BC, CMP #### [facility] [address] [place], [place] [id number] Albumin/Globulin [Mass ratio] 1.4 {ratio} Normal 1.0-2.5 [facility] Specialist Comment on above: Performed By: #### C BC, CMP #### [facility] [address] [place], [place] [id number] ALP [Catalytic activity/Vol] 69 U/L Normal 35-119 [facility] Specialist Comment on above: Performed By: #### C BC, CMP #### [facility] [address] [place], [place] [id number] ALT [Catalytic activity/Vol] 18 U/L Normal 6-33 [facility] Specialist Comment on above: Result Comment: 04/02 Female reference range changed. Performed By: #### C BC, CMP #### [facility] [address] [place], [place] [id number] Anion gap [Moles/Vol] 23 mmol/L High 12-20 [facility] Comment on above: Result Comment: Effe ctive 05/08/2019 reference range changed. Performed By: #### C BC, CMP #### [facility] [address] [place], [place] [id number] AST [Catalytic activity/Vol] 18 U/L Normal 9-34 [facility] Comment on above: Performed By: #### C BC, CMP #### [facility] [address] [place], [place] [id number] BUN/CREA 21 Ratio Normal 6-22 [facility] Specialist Comment on above: Performed By: #### C BC, CMP #### [facility] [address] [place], [place] [id number] Calcium [Mass/Vol] 8.8 mg/dL Normal 8.6-10.2 [facility] Comment on above: Performed By: #### C BC, CMP #### [facility] [address] [place], [place] [id number] Chloride [Moles/Vol] 106 mmol/L Normal 98-107 [facility] Comment on above: Performed By: #### C BC, CMP #### [facility] [address] [place], [place] [id number] CO2 [Moles/Vol] 18 mmol/L Low 20-31 [facility] Specialist Comment on above: Performed By: #### C BC, CMP #### [facility] [address] [place], [place] [id number] Creatinine [Mass/Vol] 2.1 mg/dL High 0.6-1.4 [facility] Specialist Comment on above: Performed By: #### C BC, CMP #### [facility] [address] [place], [place] [id number] eGFRAA 29 mL/min/1.73m2 Low >60 [facility] Specialist Comment on above: Performed By: #### C BC, CMP #### [facility] [address] [place], [place] [id number] eGFRNAA 24 mL/min/1.73m2 Low >60 [facility] Specialist Comment on above: Performed By: #### C BC, CMP #### [facility] [address] [place], [place] [id number] Globulin (S) [Mass/Vol] 2.8 g/dL Normal 1.9-3.7 [facility] [employer] Comment on above: Performed By: #### C BC, CMP #### [facility] [address] [place], [place] [id number] Glucose [Mass/Vol] 145 mg/dL High 65-99 [facility] [employer] Comment on above: Result Comment: For FASTING Glucose --- ADA reference ranges: Normal 65-99 mg/dl Prediabetes 100-125 Diabetes >/= 126 Performed By: #### C BC, CMP #### [facility] [address] [place], [place] [id number] Potassium [Moles/Vol] 4.1 mmol/L Normal 3.5-5.5 [facility] Specialist Comment on above: Performed By: #### C BC, CMP #### [facility] [address] [place], [place] [id number] Protein [Mass/Vol] 6.8 g/dL Normal 6.1-8.1 [facility] [employer] Comment on above: Performed By: #### C BC, CMP #### [facility] [address] [place], [place] [id number] Sodium [Moles/Vol] 142 mmol/L Normal 135-146 [facility] [employer] Comment on above: Performed By: #### C BC, CMP #### [facility] [address] [place], [place] [id number] TBIL <0.3 Normal [facility] Comment on above: Performed By: #### C BC, CMP #### [facility] [address] [place], [place] [id number] Urea nitrogen [Mass/Vol] 44 mg/dL High 7-25 [facility] Specialist Comment on above: Performed By: #### C BC, CMP #### [facility] [address] [place], [place] [id number] Complete Blood Counton 05-22 Erythrocyte distribution width (RBC) [Ratio] 14.4 % Normal 11.0-15.0 [facility] Specialist Comment on above: Performed By: #### C BC, CMP #### [facility] [address] [place], [place] [id number] Hematocrit (Bld) [Volume fraction] 31.3 % Low 35.0-47.0 [facility] Specialist Comment on above: Performed By: #### C BC, CMP #### [facility] [address] [place], [place] [id number] Hemoglobin (Bld) [Mass/Vol] 9.5 g/dL Low 11.6-15.5 [facility] Specialist Comment on above: Performed By: #### C BC, CMP #### [facility] [address] [place], [place] [id number] MCH (RBC) [Entitic mass] 28.7 pg Normal 27.0-33.0 [facility] Specialist Comment on above: Performed By: #### C BC, CMP #### [facility] [address] [place], [place] [id number] MCHC (RBC) [Mass/Vol] 30.4 g/dL Low 32.0-36.0 [facility] Comment on above: Performed By: #### C BC, CMP #### [facility] [address] [place], [place] [id number] MCV (RBC) [Entitic vol] 95 fL Normal 80-100 [facility] Specialist Comment on above: Performed By: #### C BC, CMP #### [facility] [address] [place], [place] [id number] Platelet mean volume (Bld) [Entitic vol] 9.90 fL Normal 7.50-12.50 [facility] Comment on above: Performed By: #### C BETTYE, CMP #### [facility] [address] [place], [place] [id number] Platelets (Bld) [#/Vol] 275 10*3/uL Normal 140-400 [facility] Comment on above: Performed By: #### C BC, CMP #### [facility] [address] [place], [place] [id number] RBC (Bld) [#/Vol] 3.31 10*6/uL Low 3.90-5.20 [facility] Comment on above: Performed By: #### C BETTYE, CMP #### [facility] [address] [place], [place] [id number] RDW-SD 49.4 fL Normal 37.0-50.0 [facility] Comment on above: Performed By: #### C BETTYE, CMP #### [facility] [address] [place], [place] [id number] WBC (Bld) [#/Vol] 11.2 10*3/uL High 3.8-11.0 [facility] Comment on above: Performed By: #### C BETTYE, CMP #### [facility] [address] [place], [place] [id number] Comprehensive Metabolic Pane marky 05-22-2021 Albumin [Mass/Vol] 3.9 g/dL Normal 3.6-5.1 [facility] Comment on above: Performed By: #### C BC, CMP #### [facility] [address] [place], [place] [id number] Albumin/Globulin [Mass ratio] 1.3 {ratio} Normal 1.0-2.5 [facility] Comment on above: Performed By: #### C BC, CMP #### [facility] [address] [place], [place] [id number] ALP [Catalytic activity/Vol] 68 U/L Normal 35-119 [facility] Comment on above: Performed By: #### C BC, CMP #### [facility] [address] [place], [place] [id number] ALT [Catalytic activity/Vol] 16 U/L Normal 6-33 [facility] Specialist Comment on above: Result Comment: 04/02 Female reference range changed. Performed By: #### C BC, CMP #### [facility] [address] [place], [place] [id number] Anion gap [Moles/Vol] 21 mmol/L High 12-20 [facility] Specialist Comment on above: Result Comment: Effe ctive 05/08/2019 reference range changed. Performed By: #### C BC, CMP #### [facility] [address] [place], [place] [id number] AST [Catalytic activity/Vol] 20 U/L Normal 9-34 [facility] Specialist Comment on above: Performed By: #### C BC, CMP #### [facility] [address] [place], [place] [id number] BUN/CREA 16 Ratio Normal 6-22 [facility] Comment on above: Performed By: #### C BC, CMP #### [facility] [address] [place], [place] [id number] Calcium [Mass/Vol] 7.9 mg/dL Low 8.6-10.2 [facility] Comment on above: Performed By: #### C BC, CMP #### [facility] [address] [place], [place] [id number] Chloride [Moles/Vol] 102 mmol/L Normal 98-107 [facility] Comment on above: Performed By: #### C BC, CMP #### [facility] [address] [place], [place] [id number] CO2 [Moles/Vol] 26 mmol/L Normal 20-31 [facility] Comment on above: Performed By: #### C BC, CMP #### [facility] [address] [place], [place] [id number] Creatinine [Mass/Vol] 2.0 mg/dL High 0.6-1.4 [facility] Comment on above: Performed By: #### C BC, CMP #### [facility] [address] [place], [place] [id number] eGFRAA 30 mL/min/1.73m2 Low >60 [facility] [employer] Comment on above: Performed By: #### C BC, CMP #### [facility] [address] [place], [place] [id number] eGFRNAA 25 mL/min/1.73m2 Low >60 [facility] Specialist Comment on above: Performed By: #### C BC, CMP #### [facility] [address] [place], [place] [id number] Globulin (S) [Mass/Vol] 3.1 g/dL Normal 1.9-3.7 [facility] Specialist Comment on above: Performed By: #### C BC, CMP #### [facility] [address] [place], [place] [id number] Glucose [Mass/Vol] 57 mg/dL Low 65-99 [facility] Specialist Comment on above: Result Comment: For FASTING Glucose --- ADA reference ranges: Normal 65-99 mg/dl Prediabetes 100-125 Diabetes >/= 126 Performed By: #### C BC, CMP #### [facility] [address] [place], [place] [id number] Potassium [Moles/Vol] 4.9 mmol/L Normal 3.5-5.5 [facility] Comment on above: Performed By: #### C BC, CMP #### [facility] [address] [place], [place] [id number] Protein [Mass/Vol] 7.0 g/dL Normal 6.1-8.1 [facility] [employer]ice Comment on above: Performed By: #### C BC, CMP #### [facility] [address] [place], [place] [id number] Sodium [Moles/Vol] 144 mmol/L Normal 135-146 [facility] [employer] Comment on above: Performed By: #### C BC, CMP #### [facility] [address] [place], [place] [id number] TBIL <0.3 Normal [facility] Specialist Comment on above: Performed By: #### C BC, CMP #### [facility] [address] [place], [place] [id number] Urea nitrogen [Mass/Vol] 31 mg/dL High 7-25 [facility] [employer] Apprentice Comment on above: Performed By: #### C BC, CMP #### [facility] [address] [place], [place] [id number] Hemoglobin A1Con 05-22-2021 EAG 125.50 Normal [facility] Specialist Comment on above: Performed By: #### A 1C #### [facility] [address] [place], [place] [id number] HbA1c (Bld) [Mass fraction] 6.0 % Normal 4.0-6.0 [facility] Specialist Comment on above: Performed By: #### A 1C #### [facility] [address] [place], [place] [id number] BASIC METABOLIC PANELon - Calcium 9.6 mg/dL Normal 8.6-10.[address] [facility] Comment on above: Performed By: #### 0 0071 ####[facility] [place] [address], [facility] Chloride 100 mmol/L Normal 98-[address] [facility] Comment on above: Performed By: #### 0 0071 ####[facility] [place] [address], [facility] CO2 28 mmol/L Normal 21-[address] [facility] Comment on above: Performed By: #### 0 0071 ####[facility] [place] [address], [facility] Creatinine 1.15 mg/dL Normal 0.60-1.[address] [facility] Comment on above: Performed By: #### 0 0071 ####[facility] [place] [address], [place] eGFR (black) 57 ml/min/1.73sq m Abnormal >[address] [facility] Comment on above: Performed By: #### 0 0071 ####[facility] [place] [address], [place] eGFR (non-black) 47 ml/min/1.73sq m Abnormal >[address] [facility] Comment on above: Performed By: #### 0 0071 ####[facility] Glucose mass conc 163 mg/dL High 70-[address] [facility] Comment on above: Performed By: #### 0 0071 ####[facility] Potassium molar conc 4.1 mmol/L Normal 3.5-5.[address] [facility] Comment on above: Performed By: #### 0 0071 ####[place] [address] [address] Sodium 135 mmol/L Low 136-[address] [facility] Comment on above: Performed By: #### 0 0071 ####[place] [address] [address] Urea nitrogen 17 mg/dL Normal 7-[address] [facility] Comment on above: Performed By: #### 0 0071 ####[facility] CBC W/DIFFon 08-24-2017 ABS BASOPHILS 0.1 10*3/uL Normal 0.0-0.[address] [facility] Comment on above: Performed By: #### 5 0103 ####[facility] ABS IMM GRANS 0.1 10*3/uL Normal 0.0-0.[address] [facility] Comment on above: Performed By: #### 5 0103 ####[facility] Basophils Auto #/vol (Bld) 0.5 % Normal 0.0-1.[address] [facility] Comment on above: Performed By: #### 5 0103 ####[facility] [place] [address], [facility] Eosinophils 0.4 10*3/uL Normal 0.0-0.[address] [facility] Comment on above: Performed By: #### 5 0103 ####[facility] [facility] [place] [place] [address], [facility] Eosinophils/100 leukocytes 3.5 % Normal 0.0-6.[address] [facility] Comment on above: Performed By: #### 5 0103 ####[facility], [place] [address] [place] [address] Erythrocyte distribution width Auto Ratio (RBC) 14.2 % Normal 11.5-15.[address] [facility] Comment on above: Performed By: #### 5 0103 ####[facility] Erythrocytes (RBC) 0 % Normal 0-[address] [facility] Comment on above: Performed By: #### 5 0103 ####[facility] [place] [address], [facility] Erythrocytes (RBC) 4.12 10*6/uL Normal 3.80-5.[address] [facility] Comment on above: Performed By: #### 5 0103 ####[facility], [place] [address] [place] [address] Hematocrit (HCT) 37.1 % Normal 36.0-45.[address] [facility] Comment on above: Performed By: #### 5 0103 ####[facility] [place] [address], [facility] Hemoglobin mass conc (Bld) 12.3 g/dL Normal 12.0-15.[address] [facility] Comment on above: Performed By: #### 5 0103 ####[facility] [place] [address], [facility] IMMATURE GRANS 0.4 % Normal 0.0-1.[address] [facility] Comment on above: Performed By: #### 5 0103 ####[facility] Lymphocytes 5.1 10*3/uL High 1.2-4.[address] [facility] Comment on above: Performed By: #### 5 0103 ####[facility] Lymphocytes/100 leukocytes 40.5 % Normal 20.0-45.[address] [facility] Comment on above: Performed By: #### 5 0103 ####[facility] MCH 29.9 pg Normal 27.0-33.[address] [facility] Comment on above: Performed By: #### 5 010 ####[facility] MCHC mass conc (RBC) 33.2 g/dL Normal 32.0-35.[address] [facility] Comment on above: Performed By: #### 5 0103 ####[facility] [place] [place] [address] MCV 90.0 fL Normal 82.0-98.[address] [facility] Comment on above: Performed By: #### 5 0103 ####[facility] Monocytes 0.9 10*3/uL Normal 0.1-1.[address] [facility] Comment on above: Performed By: #### 5 0103 ####[facility] MONOS 7.5 % Normal 5.0-12.[address] [facility] Comment on above: Performed By: #### 5 3 ####[facility] [place] Neutrophils 6.0 10*3/uL Normal 1.6-7.[address] [facility] Comment on above: Performed By: #### 5 0103 ####[facility] Neutrophils/100 leukocytes 47.6 % Normal 40.0-72.[address] [facility] Comment on above: Performed By: #### 5 0103 ####[place] [address] [address] PLAT CNT 239 10*3/uL Normal 150-[address] [facility] Comment on above: Performed By: #### 5 0103 ####[place] [address] [address] WBC (Leukocytes) 12.5 10*3/uL High 4.0-10.[address] [facility] Comment on above: Performed By: #### 5 0103 ####[address] ABDOMEN AND PELVIS WO CON TRASTon 08-24-2017 CT ABDOMEN AND PELVIS [facility] [place], [place] [address] P atient Name: KATE HAGEN : 1950Sex: FAge: Race: WhiteMRN: [id number]. Location: 85Patient Status: DVisit #: [id number] Date: 08/24/2017 2:00:00 PMCompleted Date: 08/24/2017 04:18 PMRequesting Provider: KASANDRA BROWN Attending Provider: KASANDRA BROWN Report Copy To: BARRY BARBER Signs & Symptoms: K43.2 Incisional hernia without obstruction or gangrene U02Orbovlu: AthenaComments: , , oral contrast only , , , Ordering Feliberto BROWN MD , Rendering Feliberto BROWN MD , Exam: CT ABDOMEN AND PELVIS WO CONTRASTAccession #: [id number] ======CT ABDOMEN AND PELVIS WO CONTRAST 08/24/2017 [...] oral contrast only , , , Ordering Feliberto BROWN MD , Rendering Provider - KASANDRA [...] exam is recommended for further evaluation. Approved by:Nadine Rush on 08/24/2017 5:15 PM EDT. I, Colin Clemente, have reviewed the images and report and concur with these findings. Electronically signed by:Colin Clemente. Transcribed by: [email or web address], User Resident: NADINE RUSHElectronically Signed by: COLIN CLEMENTE @ 08/25/2017 10:20 PMI personally read this/these film(s) with this resident Normal [facility] Comment on above: Order Comment: , , o ral contrast only , , , Ordering Provider - KASANDRA BROWN MD , Rendering Provider - KASANDRA BROWN MD , HEMOGLOBIN A1Con 08-24-2017 Glucose mass conc 146 mg/dL High 70-[address] [facility] Comment on above: Performed By: #### 4 6447 ####[facility] Hemoglobin A1c/Hemoglobin.total mass fraction (Bld) 6.7 % High 4.0-6.[address] [facility] Comment on above: Performed By: #### 4 6447 ####[facility] PROTHROMBIN TIMEon 8 INR Coag RelTime (PPP) 1.10 {INR} Normal 0.91-1.[address] [facility] Comment on above: Result Comment: ACCC P RECOMMENDED INR FOR WARFARIN THERAPY CONDITION INRPROPHYLAXIS OF VENOUS THROMBOSIS 2-3(HIGH-RISK SURGERY)TREATMENT OF VENOUS THROMBOSIS 2-3TREATMENT OF PULMONARY EMBOLISM 2-3PREVENTION OF SYSTEMIC EMBOLISM: 2-3 ACUTE MYOCARDIAL INFARCTION TISSUE HEART VALVES VALVULAR HEART DISEASE ATRIAL FIBRILLATION RECURRENT SYSTEMIC EMBOLISMMECHANICAL HEART VALVE 2.5-3.5 FROM: ORAL ANTICOAGULANTS. MECHANISM OF ACTION, CLINICALEFFECTIVENESS, AND OPTIMAL THERAPEUTIC RANGE. [id number]-246S. Performed By: #### 5 6101 ####[facility] [place] Prothrombin time (PT) Coag time (PPP) 14.3 s Normal 12.3-14.[address] [facility] Comment on above: Result Comment: ALL RESULTS MUST BE INTERPRETED WITH RESPECT TO BLOOD DRAWING ARTIFACTOR DILUTION ERROR OF ANTICOAGULANT AT THE TIME OF SAMPLING. Performed By: #### 5 6101 ####[facility] Vital Signs Date Time Vital Sign Value Performing Clinician Facility 09-07-2023 15:24-0400 Blood Pressure Location Shaye Orzech [facility] 09-07-2023 15:24-0400 Body temperature 98.06 [degF] Shaye Orzech [facility] 09-07-2023 15:24-0400 Diastolic blood pressure 62 mm[Hg] Shaye Orzech [facility] 09-07-2023 15:24-0400 Heart rate 78 /min Shaye Orzech [facility] 09-07-2023 15:24-0400 Respiratory rate 16 /min Shaye Orzech [facility] 09-07-2023 15:24-0400 Systolic blood pressure 125 mm[Hg] Shaye Orzech [facility] 07-26-2023 14:20-0400 Body height 152.4 cm Annika Kaba [employer]OCIATE Work Phone: [facility] 07-26-2023 14:20-0400 Body mass index (BMI) [Ratio] 25.78 kg/m2 Annika Kaba [employer] ASSOCIATE Work Phone: [facility] 07-26-2023 14:20-0400 Body weight 59.88 kg Annika Kaba [employer] ASSOCIATE Work Phone: [facility] 07-26-2023 14:20-0400 Diastolic blood pressure 56 mm[Hg] Annika Kaba [employer] ASSOCIATE Work Phone: [facility] 07-26-2023 14:20-0400 Heart rate 72 /min Annika Kaba [employer] ASSOCIATE Work Phone: [facility] 07-26-2023 14:20-0400 Systolic blood pressure 106 mm[Hg] Annika Kaba [employer] ASSOCIATE Work Phone: [facility] 04-29-2023 14:24-0500 Body height 152.[address] 04-29-2023 14:24-0500 Body mass index (BMI) [Ratio] 31.25 kg/m2 [address] 04-29-2023 14:24-0500 Body weight 72.[address] 04-29-2023 14:24-0500 Diastolic blood pressure 64 mm[Hg] [address] 04-29-2023 14:24-0500 Systolic blood pressure 122 mm[Hg] [address] 04-28-2023 09:43-0500 Body temperature 96.98 [degF] Jacqui Lue [facility] 04-28-2023 09:43-0500 Diastolic blood pressure 86 mm[Hg] Jacqui Lue [facility] 04-28-2023 09:43-0500 Heart rate 74 /min Jacqui Lue [facility] 04-28-2023 09:43-0500 Systolic blood pressure 124 mm[Hg] Jacqui Lue [facility] 03-30-2023 13:55-0500 Body height 152.4 cm Annika Kaba [employer]OCIATE Work Phone: [facility] 03-30-2023 13:55-0500 Body mass index (BMI) [Ratio] 31.25 kg/m2 Annika Kaba [employer] ASSOCIATE Work Phone: [facility] 03-30-2023 13:55-0500 Body weight 72.58 kg Annika Kaba [employer] ASSOCIATE Work Phone: [facility] 03-30-2023 13:55-0500 Diastolic blood pressure 60 mm[Hg] Annika Kaba [employer] ASSOCIATE Work Phone: [facility] 03-30-2023 13:55-0500 Heart rate 70 /min Annika Kaba [employer] ASSOCIATE Work Phone: [facility] 03-30-2023 13:55-0500 Systolic blood pressure 128 mm[Hg] Annika Kaba [employer] ASSOCIATE Work Phone: [facility] 02-03-2023 09:07-0400 Blood Pressure Location Jacqui Lue [facility] 02-03-2023 09:07-0400 Diastolic blood pressure 74 mm[Hg] Jacqui Lue [facility] 02-03-2023 09:07-0400 Heart rate 68 /min Jacqui Lue [facility] 02-03-2023 09:07-0400 Respiratory rate 16 /min Jacqui Lue [facility] 02-03-2023 09:07-0400 Systolic blood pressure 120 mm[Hg] Jacqui Lue [facility] 12-29-2022 14:17-0400 Blood Pressure Location INES WELCH [facility] 12-29-2022 14:17-0400 Diastolic blood pressure 70 mm[Hg] INES WELCH [facility] 12-29-2022 14:17-0400 Heart rate 70 /min INES WELCH [facility] 12-29-2022 14:17-0400 Respiratory rate 16 /min INES WELCH [facility] 12-29-2022 14:17-0400 Systolic blood pressure 132 mm[Hg] INES WELCH [facility] 12-28-2022 14:33-0400 Body height 152.4 cm Barry Barber Work Phone: [facility] 250 DO Work Phone: 12-28-2022 14:33-0400 Body mass index (BMI) [Ratio] 29.49 kg/m2 Barry Barber Work Phone: [facility] 250 DO Work Phone: 12-28-2022 14:33-0400 Body surface area Derived from formula 1.66 m2 Barry Barber Work Phone: [facility] 250 DO Work Phone: 12-28-2022 14:33-0400 Body weight 68.49 kg Barry Barber Work Phone: [facility] 250 DO Work Phone: 12-28-2022 14:33-0400 Diastolic blood pressure 44 mm[Hg] Barry Barber Work Phone: [facility] 250 DO Work Phone: 12-28-2022 14:33-0400 Heart rate 76 /min Barry Barber Work Phone: [facility] 250 DO Work Phone: 12-28-2022 14:33-0400 Systolic blood pressure 80 mm[Hg] Barry Barber Work Phone: [facility] 250 DO Work Phone: 12-28-2022 14:33-0400 11 1 Barry Barber Work Phone: [facility] 250 DO Work Phone: Comment on above: PHQ-9 TS 11-21-2022 16:00-0400 Inhaled oxygen flow rate 4 L/min II Barry Barber Work Phone: [facility] 11-21-2022 15:53-0400 Heart rate 65 /min II Barry Barber Work Phone: [facility] 11-21-2022 15:53-0400 Respiratory rate 20 /min II Barry Barber Work Phone: [facility] 11-21-2022 12:00-0400 Diastolic blood pressure 79 mm[Hg] II Barry Barber Work Phone: [facility] 11-21-2022 12:00-0400 SaO2% (BldA) [Mass fraction] 93 % II Barry Barber Work Phone: [facility] 11-21-2022 12:00-0400 Systolic blood pressure 149 mm[Hg] II Barry Barber Work Phone: [facility] 11-21-2022 08:30-0400 Body temperature 97.9 [degF] II Barry Barber Work Phone: [facility] 11-21-2022 06:00-0400 Body weight 74 kg II Barry Barber Work Phone: [facility] 11-19-2022 09:40-0400 Body height 152.4 cm II Barry Barber Work Phone: [facility] 11-18-2022 19:23-0400 Diastolic blood pressure 88 mm[Hg] II Barry Barber Work Phone: [facility] 11-18-2022 19:23-0400 Heart rate 82 /min II Barry Barber Work Phone: [facility] 11-18-2022 19:23-0400 Inhaled oxygen flow rate 3 L/min II Barry Barber Work Phone: [facility] 11-18-2022 19:23-0400 Respiratory rate 18 /min II Barry Barber Work Phone: [facility] 11-18-2022 19:23-0400 SaO2% (BldA) [Mass fraction] 96 % II Barry Barber Work Phone: [facility] 11-18-2022 19:23-0400 Systolic blood pressure 194 mm[Hg] II Barry Barber Work Phone: [facility] 11-18-2022 16:13-0400 Body height 152.4 cm II Barry Barber Work Phone: [facility] 11-18-2022 16:13-0400 Body temperature 98.3 [degF] II Barry Barber Work Phone: [facility] 11-18-2022 16:13-0400 Body weight 75.29 kg II Barry Barber Work Phone: [facility] 08-27-2022 16:00-0400 Body height 152.4 cm Ziggy Charlie Other [employer] Other 08-27-2022 16:00-0400 Body mass index (BMI) [Ratio] 34.8 kg/m2 Ziggy Charlie Other [facility] Other 08-27-2022 16:00-0400 Body temperature 97.5 [degF] Ziggy Charlie Other [facility] Other 08-27-2022 16:00-0400 Body weight 80.83 kg Ziggy Charlie Other [employer] Other 08-27-2022 16:00-0400 Diastolic blood pressure 70 mm[Hg] Ziggy Charlie Other [facility] Other 08-27-2022 16:00-0400 Respiratory rate 18 /min Ziggy Charlie Other [facility] Other 08-27-2022 16:00-0400 SaO2% (BldA) [Mass fraction] 91 % Ziggy Charlie Other [facility] Other 08-27-2022 16:00-0400 Systolic blood pressure 124 mm[Hg] Ziggy Charlie Other [employer] Other 07-29-2022 09:08-0400 Blood Pressure Location Jacqui Lue [facility] 07-29-2022 09:08-0400 Diastolic blood pressure 89 mm[Hg] Jacqui Lue [facility] 07-29-2022 09:08-0400 Heart rate 66 /min Jacqui Lue [facility] 07-29-2022 09:08-0400 Systolic blood pressure 131 mm[Hg] Jacqui Lue [facility] 06-10-2022 10:24-0500 Blood Pressure Location Jacqui Lue [facility] 06-10-2022 10:24-0500 Diastolic blood pressure 80 mm[Hg] Jacqui Lue [facility] 06-10-2022 10:24-0500 Heart rate 77 /min Jacqui Lue [facility] 06-10-2022 10:24-0500 Systolic blood pressure 130 mm[Hg] Jacqui Lue [facility] 02-16-2022 13:05-0400 Blood Pressure Location Montero SALAM [facility] 02-16-2022 13:05-0400 Diastolic blood pressure 76 mm[Hg] Montero SALAM [facility] 02-16-2022 13:05-0400 Heart rate 68 /min Montero SALAM [facility] 02-16-2022 13:05-0400 Respiratory rate 30 /min Montero SALAM [facility] 02-16-2022 13:05-0400 SaO2% (BldA) [Mass fraction] 98 % Montero SALAM [facility] 02-16-2022 13:05-0400 Systolic blood pressure 142 mm[Hg] Montero SALAM [facility] 02-16-2022 13:00-0400 Respiratory rate 25 /min Montero SALAM [facility] 02-16-2022 13:00-0400 Systolic blood pressure 127 mm[Hg] Montero SALAM [facility] 02-16-2022 12:55-0400 Blood Pressure Location Montero SALAM [facility] 02-16-2022 12:55-0400 Diastolic blood pressure 71 mm[Hg] Montero SALAM [facility] 02-16-2022 12:55-0400 Heart rate 70 /min Montero SALAM [facility] 02-16-2022 12:55-0400 Respiratory rate 27 /min Montero SALAM [facility] 02-16-2022 12:55-0400 SaO2% (BldA) [Mass fraction] 97 % Montero SALAM [facility] 02-16-2022 12:55-0400 Systolic blood pressure 119 mm[Hg] Montero SALAM [facility] 02-16-2022 12:42-0400 Body temperature 96.98 [degF] Montero SALAM [facility] 02-16-2022 10:46-0400 Body temperature 96.8 [degF] Montero SALAM [facility] 12-31-2021 14:58-0400 Diastolic blood pressure 80 mm[Hg] Lani Lisy [facility] 12-31-2021 14:58-0400 Mean blood pressure 100 mm[Hg] Lani Lisy [facility] 12-31-2021 14:58-0400 Systolic blood pressure 140 mm[Hg] Lani Lisy [facility] 12-31-2021 14:54-0400 Blood Pressure Location Lani Lisy [facility] 12-31-2021 14:54-0400 Body temperature 97.7 [degF] Lani Lisy [facility] 12-31-2021 14:54-0400 Diastolic blood pressure 77 mm[Hg] Lani Lisy [facility] 12-31-2021 14:54-0400 Heart rate 69 /min Lani Wasserman [facility] 12-31-2021 14:54-0400 Systolic blood pressure 144 mm[Hg] Lani Wasserman [facility] 12-13-2021 11:05-0400 Body weight 79.56 kg Smiley Davila Other [facility] Other 12-13-2021 11:05-0400 Diastolic blood pressure 70 mm[Hg] Smiley Davila Other [facility] Other 12-13-2021 11:05-0400 Respiratory rate 18 /min Smiley Davila Other [facility] Other 12-13-2021 11:05-0400 SaO2% (BldA) [Mass fraction] 94 % Smiley Davila Other [facility] Other 12-13-2021 11:05-0400 Systolic blood pressure 129 mm[Hg] Smiley Davila Other [employer] Other Encounters Encounter Date Encounter Type Care Provider Facility Start: 03-15-2024 ambulatory Jacqui Michael Facility:[facility] Start: 10-13-2023 End: 10-13-2023 ambulatory BARRY BARBER Not Available Start: 09-12-2023 Letter encounter Colt gonzalez DO Work Phone: [facility] Start: 09-10-2023 End: 09-10-2023 ambulatory BARRY BARBER Not Available Start: 09-08-2023 End: 09-09-2023 ambulatory KAYDEN LEE Facility:[facility] Start: 09-08-2023 End: 09-08-2023 Office outpatient visit 15 minutes Colt Live DO Work Phone: [facility] Comment on above: Closed displaced int ertrochanteric fracture of right femur, initial encounter (HCC) (Primary Dx) Start: 09-08-2023 End: 09-08-2023 Subsequent hospital visit by physician Phe Op X-Ray 4 [facility] Diagnostic Radiology Comment on above: Closed displaced int ertrochanteric fracture of right femur, initial encounter (HCC) Start: 09-07-2023 End: 09-08-2023 ambulatory Shaye X Orzech Facility:[facility] Start: 09-07-2023 End: 09-07-2023 Patient encounter procedure Shaye X Orzech [facility] Start: 08-18-2023 ambulatory MENG LEOS Facility: [facility] Start: 08-18-2023 End: 08-18-2023 Patient encounter procedure Meng Leos DMD, MD Work Phone: [facility] Oral Surgery Comment on above: Edentulous (Primary Dx) Start: 08-12-2023 End: 08-12-2023 ambulatory BARRY BARBER Not Available Start: 08-11-2023 End: 08-12-2023 ambulatory ANNIKA KABA [facility] Start: 07-26-2023 End: 07-26-2023 Office outpatient visit 25 minutes Annika Kaba [employer] T[employer] ASSOCIATE [facility] Comment on above: Anticoagulated (Prim omar Dx); Paroxysmal atrial fibrillation (CMS/HCC); Nonrheumatic aortic valve stenosis; Abnormal echocardiogram; Pulmonary hypertension (CMS/HCC); Mixed hyperlipidemia; Essential hypertension; Diabetes mellitus type II, non insulin dependent (CMS/HCC); Stage 3b chronic kidney disease (CMS/HCC); BMI 25.0-25.9,adult; Current smoker Start: 07-07-2023 End: 07-08-2023 ambulatory KAYDEN LEE Facility:[facility] Start: 07-06-2023 End: 07-06-2023 ambulatory MAHAMED RM Not Available Start: 06-16-2023 Clinisync Result Encounter Annabelle Rivas MD Work Phone: [facility] External [facility] Unsolicited Start: 06-16-2023 Clinisync Result Encounter Annabelle Rivas MD Work Phone: [facility] External [facility] Unsolicited Start: 06-15-2023 ambulatory Elmo Allen RN Work Phone: [facility] Care Management/Patient Access Start: 06-15-2023 Coordination of care plan Epifanio Allen RN Work Phone: [facility]/Patient Access Comment on above: Care Coordination; T ransitional Care Management Start: 06-14-2023 Clinisync Result Encounter Annabelle Rivas MD Work Phone: [facility] External [facility] Unsolicited Start: 06-14-2023 Clinisync Result Encounter Annabelle Rivas MD Work Phone: [facility] External [facility] Unsolicited Start: 06-11-2023 Clinisync Result Encounter Jose Conti MEDICAL SECRETARY Work Phone: [facility] External Department Unsolicited Start: 06-11-2023 Clinisync Result Encounter Jose Conti MEDICAL SECRETARY Work Phone: [facility] External [facility] Unsolicited Start: 06-09-2023 End: 06-10-2023 chelle ELE Facility:[facility] Start: 06-09-2023 End: 06-09-2023 Patient encounter procedure Colt Live DO Work Phone: [facility] Comment on above: Closed displaced int ertrochanteric fracture of right femur, initial encounter (HCC) (Primary Dx) Start: 06-09-2023 End: 06-09-2023 Subsequent hospital visit by physician Phe Op X-Ray 4 [facility] Rad[facility] Comment on above: Closed displaced int ertrochanteric fracture of right femur, initial encounter (HCC) Start: 06-07-2023 Ancillary Orders Kayden Lee PA-C Work Phone: [facility] Start: 06-01-2023 ambulatory Elmo Allne RN Work Phone: [facility] Care Management/Patient Access Start: 06-01-2023 Coordination of care plan Epifanio Allen RN Work Phone: [facility] Access Comment on above: Care Coordination; T ransitional Care Management Start: 05-25-2023 ambulatory Elmo Allen RN Work Phone: [facility]Patient Access Start: 05-25-2023 Coordination of care plan Epifanio Allen RN Work Phone: [facility] Comment on above: Care Coordination; T ransitional Care Management Start: 05-19-2023 ambulatory Elmo Allen RN Work Phone: [facility] Start: 05-19-2023 Follow-up encounter Elmo de leon RN Work Phone: [facility]Patient Access Comment on above: Care Coordination; T ransitional Care Management; Hospital follow-up Start: 05-14-2023 ambulatory Lani Garcia ty:[facility] Start: 05-14-2023 Evaluation and manag ement of inpatient UNKNOWN PROVIDER Facility:[facility] Start: 05-13-2023 End: 05-18-2023 Evaluation and management of inpatient LALI RIVERA Facility:[facility] Start: 05-07-2023 End: 05-08-2023 ambulatory SOM Daren [facility] Start: 04-29-2023 End: 04-29-2023 Subsequent hospital visit by physician Doreen Chi Echo/Vasc Room 2 [facility] Comment on above: Nonrheumatic aortic valve stenosis; Pulmonary hypertension (CMS/HCC) Start: 04-28-2023 End: 04-29-2023 ambulatory Jacqui Michael Facility:[facility] Start: 04-28-2023 End: 04-28-2023 Patient encounter procedure Jacqui Michael [facility] Start: 04-20-2023 End: 04-20-2023 ambulatory SOM C [facility] Start: 04-20-2023 ambulatory Jacqui Alec Facility:[facility] Start: 04-19-2023 End: 04-19-2023 ambulatory BARRY BARBER Not Available Start: 04-05-2023 End: 04-05-2023 ambulatory BARRY BARBER Not Available Start: 03-30-2023 End: 03-30-2023 Office outpatient visit 25 minutes Annika Kaba [employer] T[employer] ASSOCIATE Work Phone: [facility] Comment on above: Paroxysmal atrial fi brillation (CMS/HCC) (Primary Dx); Anticoagulated; Nonrheumatic aortic valve stenosis; Abnormal echocardiogram; Pulmonary hypertension (CMS/HCC); Stage 3a chronic kidney disease (CMS/HCC); Current smoker; Diabetes mellitus type II, non insulin dependent (CMS/HCC); BMI 31.0-31.9,adult; Mixed hyperlipidemia; Essential hypertension Start: 02-22-2023 End: 02-23-2023 ambulatory Jacqui Michael Facility[facility] Start: 02-22-2023 End: 02-22-2023 Patient encounter procedure Jacqui Michael [facility] Start: 02-03-2023 End: 02-04-2023 ambulatory Jacqui Michael Facility:[facility] Start: 02-03-2023 End: 02-04-2023 ambulatory Jacqui Michael Facility:[facility] Start: 02-03-2023 End: 02-03-2023 Patient encounter procedure Jacqui Michael [facility] Start: 12-29-2022 End: 12-30-2022 ambulatory IENS WELCH Facility:[facility] Start: 12-29-2022 End: 12-29-2022 Patient encounter procedure INES WELCH [facility] Start: 12-28-2022 Patient encounter procedure Balaji Barber Work Phone: [facility] DO Work Phone: Start: 12-28-2022 ambulatory Annika Kaba Facility:1 [id number] Start: 11-21-2022 ambulatory Annika Kaba Facility:9 [id number] Start: 11-20-2022 ambulatory Annika Kaba Facility:9 [id number] Start: 11-19-2022 ambulatory Annika Kaba Facility:9 [id number] Start: 11-18-2022 ambulatory Annika Kaba Facility:9 [id number] Start: 11-18-2022 End: 11-21-2022 Evaluation and management of inpatient Hilary Antunez Facility:[facility] Start: 11-18-2022 End: 11-21-2022 Evaluation and management of inpatient MARTHA Barber Work Phone: [facility] [place] [facility] Work Phone: Start: 10-27-2022 End: 10-27-[address] [facility] Start: 09-22-2022 End: 09-22-2022 ambulatory [facility] Start: 09-11-[address] BARRY BARBER Facilit y:[facility] Start: 09-06-2022 End: 09-08-2022 Evaluation and management of inpatient DR LALI RIVERA . Facility:[facility] Start: 08-27-2022 End: 08-27-2022 ambulatory Ziggy Charlie Other [facility] [employer] Other Start: 08-27-2022 Office outpatient ne w 45 minutes Ziggy Charlie [facility] Start: 07-29-2022 End: 07-29-2022 Patient encounter procedure Jacqui Michael [facility] Start: 07-22-[address] BARRY BARBER Facilit y:[facility] Start: 07-08-2022 End: 07-08-2022 Patient encounter procedure INES WELCH [facility] Start: 07-07-2022 End: 07-07-[address] SILVA MAXWELL Facility:[facility] Start: 07-06-2022 End: 07-06-2022 [facility] [facility] Start: 06-15-2022 End: 06-16-2022 ambulatory INES DANN Facility:[facility] Start: 06-14-2022 End: 06-15-2022 ambulatory INES WELCH Facility:[facility] Start: 06-10-2022 End: 06-10-2022 Lab Drop off Jacqui Michael [facility] Start: 06-10-2022 End: 06-10-2022 Patient encounter procedure Jacqui Michael [facility] Start: 05-05-2022 End: 05-06-[address] ANITA KEYS Facility:[facility] Start: 04-16-2022 End: 04-16-2022 [facility] Start: 04-15-2022 End: 04-28-[address] JOSE SON . Facility:[facility] Start: 04-13-2022 End: 04-13-2022 ambulatory [facility] Start: 04-10-2022 End: 04-13-2022 Evaluation and management of inpatient DR JOSE SON . Facility:[facility] Start: 03-08-2022 End: 03-10-[address] BARRY BARBER Facility:[facility] Start: 03-05-2022 End: 03-08-[address] BARRY BARBER Facility:[facility] Start: 03-04-2022 End: 03-04-[address] JOSE SON . Facility:[facility] Start: 02-27-2022 End: 03-01-[address] JOSE SON . Facility:[facility] Start: 02-25-2022 End: 02-27-2022 Evaluation and management of inpatient DR BARRY BARBER Facility:[facility] Start: 02-16-2022 End: 02-16-2022 Patient encounter procedure Kylah BELL [facility] Start: 02-06-2022 End: 02-06-2022 Patient encounter procedure Lani Howardmetz [facility] Start: 12-31-2021 End: 05-07-2022 Recurring Kylah BELL [facility] Start: 12-31-2021 End: 12-31-2021 Patient encounter procedure Lani Mata Lisy [facility] Start: 12-13-2021 End: 12-13-2021 ambulatory Smiley Davila Other [facility] Other Start: 12-13-2021 Office outpatient ne w 20 minutes Smiley Davila [facility] Start: 11-28-2021 End: 11-28-2021 ambulatory JOHN RENEE Facility:[facility] Start: 10-07-2021 End: 10-08-[address] MAHAMED RM Facility:[facility] Start: 09-23-2021 End: 09-24-[address] MAHAMED RM Facility:[facility] Start: 08-24-2017 End: 08-25-2017 Ambulatory KASANDRA BROWN Facility:[facility] Procedures Date Procedure Procedure Detail Performing Clinician Start: 09-08-2023 End: 09-08-2023 Radex hip unilateral with pelvis 2-3 views Kayden Lee PA-C Work Phone: Start: 08-18-2023 panoramic radiographic image Emma Robb DDS Work Phone: Start: 06-16-2023 ALL BASIC METABOLIC PANEL Austin Rivas MD Work Phone: Start: 06-14-2023 ALL BASIC METABOLIC PANEL Austin Rivas MD Work Phone: Start: 06-11-2023 ALL HGB HCT Jose lemus MEDICAL SECRETARY Work Phone: Start: 06-09-2023 End: 06-09-2023 Radex hip unilateral with pelvis 2-3 views Kayden Lee PA-C Work Phone: Start: 04-29-2023 Echo tthrc r-t 2d w/ wom-mode compl spec&colr d Annika Kaba [employer] T[employer]ER[employer] RELATIONS ASSOCIATE Work Phone: Start: 04-13-2023 Mammography Doreen 2 Start: 02-22-2023 Transurethral cystoscopy Jacqui Lue Start: 11-21-2022 Plain chest X-ray II Da noni Barber Work Phone: Start: 11-18-2022 Plain chest X-ray II Da noni Barber Work Phone: Start: 09-22-2022 Follow-up visit Follow-up EHAB CHUY KOROMA Start: 09-07-2022 Transfusion of Nonau tologous Red Blood Cells into Peripheral Vein, Percutaneous Approach DR MAHAMED RM Start: 02-16-2022 Colonoscopy Colonoscopy Kylah Perez Start: 12-02-2020 Cystoscopy Jacqui Lue Start: 05-30-2020 Mammography Annika Johnnie lyle PU[employer] T[employer] RELATIONS ASSOCIATE Work Phone: Start: 05-03-2020 Colonoscopic polypectomy Barry Barber Work Phone: Start: 02-02-2020 Colonoscopy Jose Conti MEDICAL SECRETARY Work Phone: Cholecystectomy Lani Daniel tz Colonoscopy Lani Wasserman Extraction of wisdom tooth Mine Barber Work Phone: H/O: hysterectomy Lani veras Hernia repair Barry Barber Work Phone: History of hernia repair Luna Wasserman Hysterectomy Barry Barber Work Phone: Repair of hip Shaye Pittman Small intestine excision Juan Manuel Barber Work Phone: Plan of Treatment Date Care Activity Detail Author Start: 02-17-2032 Screening for malignant neoplasm of colon [facility] Start: 02-01-2030 Screening for malignant neoplasm of colon [facility] Start: 08-10-2024 Creatinine measurement Basic Metabolic Panel [facility] Start: 05-18-2024 Creatinine measurement [facility] Start: 05-18-2024 Potassium measurement Potassium Level [facility] Start: 05-12-2024 Lipid panel Lipid Profile [facility] Start: 04-29-2024 Echocardiography Echocardiogram [facility] Start: 04-19-2024 Medicare Annual Wellness (AWV) Medicare Annual Wellness (AWV) [facility] Start: 04-13-2024 Screening for malignant neoplasm of breast [facility] Start: 01-24-2024 End: 01-24-2024 Patient encounter procedure 01/24/2024 2:30 PM EDT [facility] [address] [facility] [address] [place] [address] Annika Kaba, PUFFER TENDER[employer]UEST RELATIONS ASSOCIATE [address] [facility] [address] [place] [address] [facility] Start: 11-19-2023 Echocardiography Echocardiogram [facility] Start: 11-17-2023 End: 11-17-2023 Patient encounter procedure 11/17/2023 1:30 PM EDT Office Visit [facility] [address] [place] [id number] [facility] Start: 11-16-2023 Hemoglobin A1c measurement Hemoglobin A1C [facility] Start: 09-08-2023 End: 09-08-2023 Patient encounter procedure 09/08/2023 1:00 PM EDT Office Visit [facility] [id number] [place] [address] Colt Live DO [address] [facility] [place] [address] [facility] Start: 08-19-2023 Glaucoma screening Diabetes: Retinopathy Screening [facility] Start: 08-18-2023 End: 08-18-2023 Patient encounter procedure 08/18/2023 1:00 PM EDT Office Visit [facility] [address] [place] [id number] Meng Leos DMD, MD [address] [place] [address] [facility] Start: 08-17-2023 Hemoglobin A1c measurement Diabetes: Hemoglobin A1C [facility] Start: 07-26-2023 End: 07-25-2024 Basic metabolic 2000 panel - Serum or Plasma Basic Metabolic Panel Lab Routine Stage 3b chronic kidney disease ([facility]/HCC) Expected: 07/26/2023 (Approximate), Expires: 07/25/2024 [facility] Service Area Work Phone: Comment on above: Expected: 07/26/2023 (Approximate), Expi res: 07/25/2024 Start: 07-07-2023 End: 07-07-2023 Patient encounter procedure 07/07/2023 1:00 PM EST Office Visit [facility] [address] [place] [address] Colt Live DO [address] [facility] [place] [address] [facility] Start: 06-09-2023 End: 06-09-2023 Patient encounter procedure [facility] Start: 06-07-2023 End: 06-07-2024 XR Femur - right 2 Views XR FEMUR RIGHT MINIMUM 2 VIEWS Imaging Routine Closed displaced intertrochanteric fracture of right femur, initial encounter ([facility]) Expected: 06/07/2023, Expires: 06/07/2024 [facility] Comment on above: Expected: 06/07/2023, Expires: Start: 06-07-2023 End: 06-07-2024 XR Pelvis and Hip - right Views XR HIP RIGHT W/ PELVIS MIN 2-3 VIEWS Imaging Routine Closed displaced intertrochanteric fracture of right femur, initial encounter ([facility]) Expected: 06/07/2023, Expires: 06/07/2024 [employer] Work Phone: Comment on above: Expected: 06/07/2023, Expires: Start: 05-12-2023 End: 05-12-2023 Patient encounter procedure 05/12/2023 2:30 PM EST [facility] [address] [facility] [address] [place] [phone] Annika Kaba, PUFFER TENDER[employer]GUEST RELATIONS ASSOCIATE [address] [facility] [address] [place], [place] [id number] [facility] Start: 04-29-2023 End: 04-29-2023 Patient encounter procedure 04/29/2023 2:30 PM EST Appointment [facility] [address] [facility] [address] [place] [phone] [facility] Start: 03-30-2023 End: 03-30-2024 Basic metabolic 2000 panel - Serum or Plasma Basic Metabolic Panel Lab Routine Paroxysmal atrial fibrillation (CMS/HCC) Expected: 03/30/2023 (Approximate), Expires: 03/30/2024 [facility] Service Area Work Phone: Comment on above: Expected: 03/30/2023 (Approximate), Expi res: 03/30/2024 Start: 03-30-2023 End: 03-30-2024 CBC panel - Blood by Automated count CBC Lab Routine Paroxysmal atrial fibrillation (CMS/HCC) Anticoagulated Expected: 03/30/2023 (Approximate), Expires: 03/30/2024 [facility] Work Phone: Comment on above: Expected: 03/30/2023 (Approximate), Expi res: 03/30/2024 Start: 03-30-2023 End: 03-30-2025 US Heart Transthoracic Transthoracic Echo (TTE) Complete Echocardiography Routine Nonrheumatic aortic valve stenosis Pulmonary hypertension (CMS/HCC) Expected: 03/30/2023 (Approximate), Expires: 03/30/2025 [facility] Work Phone: Comment on above: Expected: 03/30/2023 (Approximate), Expi res: 03/30/2025 Start: 11-23-2022 Blood chemistry [facility] Start: 11-23-2022 [facility] Start: 11-22-2022 Blood chemistry [facility] Start: 11-22-2022 [facility] Start: 11-21-2022 [facility] chemistry [facility] Start: 11-21-2022 End: 11-21-2022 [facility] Start: 11-20-2022 Blood chemistry [facility] Start: 11-20-2022 [facility] Start: 11-19-2022 Referral to flasher adjuster [facility] Start: 11-19-2022 Blood chemistry [facility] Start: 11-19-2022 End: 11-19-2022 [facility] Start: 11-18-2022 Hospital admission [facility] Start: 11-18-2022 [facility] Start: 08-18-2022 Glaucoma screening Eye Exam [facility] Start: 10-04-2021 Screening for osteoporosis Bone Density Scan [facility] [facility] Start: 05-30-2021 Screening for malignant neoplasm of breast Mammogram [facility] Start: 10-04-2020 Screening for osteoporosis Bone Density Scan [facility] Start: 04-02-2016 Shingles (RZV) Vaccine (2 of 3) Shingles (RZV) Vaccine (2 of 3) [facility] Start: 04-02-2016 Zoster Vaccines (2 of 3) Zoster Vaccines (2 of 3) [facility] Start: 2008 Hepatitis B (HBV) Vaccine (optional start 60+ years) Hepatitis B (HBV) Vaccine (optional start 60+ years) [facility] Start: 2008 Hepatitis B Vaccines (1 of 3 - Risk 3-dose series) Hepatitis B Vaccines (1 of 3 - Risk 3-dose series) [facility] Start: 2008 RSV vaccine (optional 60+ years) RSV vaccine (optional 60+ years) [facility] Start: 1998 Shingles (RZV) Vaccine (1 of 2) Shingles (RZV) Vaccine (1 of 2) [facility] Start: 1993 Screening for malignant neoplasm of colon [facility] Start: 1970 DTaP/Tdap/Td Vaccines (1 - Tdap) DTaP/Tdap/Td Vaccines (1 - Tdap) [facility] Start: 12-08-1967 Hepatitis A (HAV) Vaccine (optional start 19+ years) Hepatitis A (HAV) Vaccine (optional start 19+ years) [facility] Start: 12-08-1967 Hepatitis A Vaccines (1 of 2 - Risk 2-dose series) Hepatitis A Vaccines (1 of 2 - Risk 2-dose series) [facility] Start: 12-08-1967 Urine screening for protein Diabetes: Urine Protein Screening [facility] Start: 1966 Hepatitis C screening [facility] Start: 1966 Tetanus + diphtheria + acellular pertussis vaccine (product) Tdap Booster [facility] Start: 1958 Diabetic foot examination Diabetes: Foot Exam [facility] Start: 1958 Glaucoma screening Diabetes: Retinopathy Screening [facility] Start: 06-09-1949 COVID-19 Vaccine (#1) COVID-19 Vaccine (#1) [facility] Start: 1948 Glaucoma screening Eye Exam [facility] Start: 1948 Urine screening for protein Microalbumin [facility] Start: 1948 Creatinine measurement Creatinine Level [facility] Start: 1948 Diabetic foot examination Foot Exam [facility] Start: 1948 Hemoglobin A1c measurement Diabetes: Hemoglobin A1C [facility] Start: 1948 Lipid panel Lipid Panel [facility] Start: 1948 Medicare Annual Wellness Visit Medicare Annual Wellness Visit (AWV) [facility] Start: 08-07-1949 Potassium measurement Potassium Level [facility] Start: 1948 Pulmonary Function Testing Pulmonary Function Testing [facility] Start: 1948 Screening for malignant neoplasm of colon [facility] Patient referral [facility] Work Phone: End: 04-29-2023 [facility] Service Area Work Phone: Comment on above: Once for 1 Occurrences starting 04/29/20 until 04/29/2023 Immunizations Immunization Date Immunization Notes Care Provider Fa [facility] 05-20-2023 Pneumococcal conjuga te 20 valent (PCV20), polysaccharide [id number] conjugate, adjuvant, PF (ZIV=376) Meng Leos DMD, MD Work Phone: [facility] 05-20-2023 tuberculin skin test ; unspecified formulation Meng Leos DMD, MD Work Phone: [facility] 05-18-2023 Hemoglobin A1C Elmo ambrose RN Work Phone: [facility] 03-01-2023 influenza virus vaccine, unspecified formulation Jacqui Michael [facility] 03-01-2023 Influenza, High-dose Seasonal, Quadrivalent, Preservative Free Jose Conti MEDICAL SECRETARY Work Phone: [facility] 02-05-2022 influenza virus vaccine, unspecified formulation Jacqui Michael [facility] 02-05-2022 Influenza, High-dose Seasonal, Quadrivalent, Preservative Free Jose Conti MEDICAL SECRETARY Work Phone: [facility] 01-31-2022 influenza virus vaccine, unspecified formulation Jacqui Michael [facility] 01-31-2022 influenza, high dose seasonal, preservative-free Barry Barber Work Phone: [facility] 250 DO Work Phone: 03-05-2021 influenza virus vaccine, unspecified formulation Jacqui Lue [facility] 03-05-2021 influenza, high dose seasonal, preservative-free Barry B Barber Work Phone: [facility] 03-22-2020 influenza virus vaccine, unspecified formulation Jacqui Lue [facility] 03-15-2020 influenza virus vaccine, unspecified formulation Jacqui Lue [facility] 03-15-2020 influenza, high dose seasonal, preservative-free Barry B Barber Work Phone: [facility] 250 DO Work Phone: 02-09-2019 influenza virus vaccine, unspecified formulation Jacqui Lue [facility] 02-09-2019 influenza, high dose seasonal, preservative-free Barry B Barber [facility] DO Work Phone: 02-17-2018 influenza virus vaccine, unspecified formulation Jacqui Lue [facility] 02-17-2018 influenza, high dose seasonal, preservative-free Barry B Barber [facility] Work Phone: 01-25-2017 influenza virus vaccine, unspecified formulation Jacqui Lue [facility] 01-25-2017 influenza, high dose seasonal, preservative-free Barry B Barber Work Phone: [facility] DO Work Phone: 02-19-2016 influenza virus vaccine, unspecified formulation Jacqui Lue [facility] 02-19-2016 influenza, injectabl e, quadrivalent, contains preservative Barry Barber Work Phone: [facility] 250 DO Work Phone: 02-06-2016 zoster vaccine, live Jacqui L ue [facility] 02-03-2016 pneumococcal polysaccharide vaccine, 23 valent Jacqui Lue [facility] 04-12-2015 pneumococcal conjuga te vaccine, 13 valent Jacqui Lue [facility] 01-21-2015 pneumococcal polysaccharide vaccine, 23 valent Elmo Allen RN Work Phone: [facility] 01-21-2015 seasonal influenza, intradermal, preservative free Elmo Allen RN Work Phone: [facility] 02-05-2014 influenza, seasonal, injectable Jose Conti NP Work Phone: [facility] NEGATED: Highlighted row has not occurred!12-31-2021 influenza virus vaccine, unspecified formulation Lani Lisy [facility] Payers Date Payer Category Payer Unknown 2021 Medicaid [id number] 2014 Unknown [id number] 2011 Medicare [id number] 1959 Medicaid [id number] 2. 16.840.1.144556.19 1959 Medicare [id number] 2.1 6.840.1.145086.19 1959 Self-pay 1959 Unknown [id number] 2.16.8 40.1.221654.19 1948 Unknown [id number] 2.16.84 0.1.341475.3.579.2.593 1948 Unknown [id number] 2.16.84 0.1.345232.3.579.2.593 1948 Unknown [id number] 2.16.84 0.1.739435.3.579.2.593 1948 Unknown [id number] 2.16.84 0.1.510129.3.579.2.593 1948 Unknown [id number] 2.16.84 0.1.593577.3.579.2.593 1948 Unknown [id number] 2.16.84 0.1.939678.3.579.2.593 1948 Unknown [id number] 2.16.84 0.1.815072.3.579.2.593 1948 Unknown [id number] 2.16.84 0.1.398341.3.579.2.593 1948 Unknown [id number] 2.16.84 0.1.449882.3.579.2.593 1948 Unknown [id number] 2.16.84 0.1.036764.3.579.2.593 1948 Unknown [id number] 2.16.84 0.1.111791.3.579.2.593 1948 Unknown [id number] 2.16.84 0.1.717259.3.579.2.593 1948 Unknown [id number] 2.16.84 0.1.678050.3.579.2.593 1948 Unknown [id number] 2.16.84 0.1.225436.3.579.2.593 1948 Unknown [id number] 2.16.84 0.1.264046.3.579.2.593 1948 Unknown [id number] 2.16.84 0.1.008304.3.579.2.593 1948 Unknown [id number] 2.16.84 0.1.626332.3.579.2.593 1948 Unknown [id number] 2.16.84 0.1.533412.3.579.2.593 1948 Unknown [id number] 2.16. 840.1.202280.3.579.2.356 1948 Unknown [id number] 2.16. 840.1.956665.3.579.2.356 1948 Unknown [id number] 2.16. 840.1.261718.3.579.2.356 1948 Unknown [id number] 2.16. 840.1.886990.3.579.2.356 1948 Unknown [id number] 2.16. 840.1.982911.3.579.2.356 1948 Unknown [id number] 2.16.84 0.1.559717.3.579.2.1286 1948 Unknown [id number] 2.16.840 .1.560059.3.579.2.1286 1948 Unknown [id number] 2.16.8 40.1.266630.3.579.2.1286 1948 Unknown [id number] 2.16.8 40.1.817065.3.579.2.727 1948 Unknown [id number] 2.16.8 40.1.811916.3.579.2.727 1948 Unknown [id number] 2.16.8 40.1.321542.3.579.2.727 1948 Unknown [id number] 2.16.8 40.1.530668.3.579.2.727 1948 Unknown [id number] 2.16.8 40.1.799943.3.579.2.727 1948 Unknown [id number] 2.16.8 40.1.353273.3.579.2.727 1948 Unknown [id number] 2.16.8 40.1.244890.3.579.2.727 1948 Unknown [id number] 2.16.8 40.1.014859.3.579.2.727 1948 Unknown [id number] 2.16.8 40.1.715386.3.579.2.727 1948 Unknown [id number] 2.0.1.666677.3.579.2.73 1948 Unknown [id number] 2..1.436356.3.579.2.73 1948 Unknown [id number] .0.1.766720.3.579.2.73 1948 Unknown [id number] .0.1.856072.3.579.2.73 1948 Unknown [id number] ..1.329828.3.579.2.732 1948 Unknown [id number] .1.722839.3.579.2.73 1948 Unknown [id number] . 840.1.019442.3.579.2.732 1948 Unknown [id number] . 840.1.459337.3.579.2.732 1948 Unknown [id number] 2. 840.1.581159.3.579.2.732 1948 Unknown [id number] 2. 840.1.529879.3.579.2.732 1948 Unknown [id number] 2.16. 840.1.813468.3.579.2.732 1948 Unknown [id number] 2.16. 840.1.701097.3.579.2.732 1948 Unknown [id number] 2.16. 840.1.607323.3.579.2.732 1948 Unknown [id number] 2.16. 840.1.153065.3.579.2.732 1948 Unknown [id number] 2.16. 840.1.499694.3.579.2.732 1948 Unknown [id number] 2.. 840.1.358331.3.579.2.732 1948 Unknown [id number] 2.16 840.1.576136.3.579.2.732 1948 Unknown [id number] 2. 840.1.419632.3.579.2.732 1948 Unknown [id number] 2.16. 840.1.744469.3.579.2.732 1948 Unknown [id number] 2.16. 840.1.815492.3.579.2.732 1948 Unknown [id number] 2.16 840.1.339191.3.579.2.732 1948 Unknown [id number] 2.16.84 0.1.297928.3.579.2.1259 1948 Unknown [id number] 2.16.84 0.1.935106.3.579.2.1259 1948 Unknown [id number] 2.16.84 0.1.086334.3.579.2.1259 1948 Unknown [id number] 2.16.84 0.1.300080.3.579.2.1259 1948 Unknown [id number] 2.16.840 .1.357916.3.579.2.1259 1948 Unknown [id number] 2.16.840 .1.078854.3.579.2.1259 Medicare [id number] Unknown [id number] 2.16.8 40.1.371610.3.579.2.531 Unknown [id number] Social History Date Type Detail Facility Start: 03-30-2023 End: 09-08-2023 Sex Assigned At [place] Other Start: 12-31-2021 Tobacco smoking status Light t obacco smoker (finding) [facility] Tobacco smoking status Never [facility] Start: 11-18-2022 End: 11-19-2022 Tobacco smoking status NHIS Smoker (finding) [facility] Start: 1948 Sex Assigned At Female F [facility] Start: 03-30-2023 End: 09-08-2023 Caffeine use Caffeine use [facility] Comment on above: 2 cups coffee daily most of the time; 1/2 ppd; Start: 12-29-2022 End: 09-07-2023 Tobacco smoking status Heavy tobacco smoker (finding) [facility] Start: 03-30-2023 End: 04-19-2023 Tobacco smoking status NHIS Smokes tobacco daily [facility] of tobacco [facility] Start: 03-30-2023 End: 05-13-2023 Tobacco use and exposure Smokeless tobacco non-user [facility] Work Phone: Start: 03-30-2023 Alcohol intake Lifetime non-d jeffy (finding) [facility] Work Phone: Start: 03-30-2023 Gender identity Identifies as female gender (finding) [facility] Work Phone: Start: 03-30-2023 Sexual orientation Heterosexual (fin ding) [facility] Work Phone: Start: 03-20-2023 End: 07-26-2023 Exposure to SARS-CoV-2 (event) Not sure [facility] Start: 05-13-2023 Tobacco smoking stat us [facility] Ex-smoker [facility] Start: 05-19-2023 End: 09-08-2023 Alcohol intake Ex-drinker (finding) [facility] Start: 1950 Sex Assigned At Not on file [facility] Within the last year , have you [...] to buy more. DK or Refused [facility] Medical Equipment Procedure Code Equipment Code Equipment Origin al Text Equipment Identifier Dates Gamma Long Nail Right 10mm X 360mm 130deg Sterile [id number] Start: 05-14-2023 Scr Bn 10.5mm 85 mm Gma Lg Strl [id number] - [id number] Start: 05-14-2023 Inject 1 each un gino the skin in the morning and 1 each before bedtime. [id number] Goals Date Patient Goal Desired Activity /State Functional Status Date Assessment Result Facility 09-07-2023 Functional Status N/A [facility] 04-28-2023 Functional Status N/A [facility] 10-13-2023 Functional Status N/A [facility] 02-03-2023 Functional Status N/A [facility] 12-29-2022 Functional Status N/A [facility] 11-21-2022 Functional status Patient at Baseline [facility] Work Phone: 07-29-2022 Functional Status N/A [facility] 06-10-2022 Functional Status N/A [facility] 02-16-2022 Functional Status N/A [facility] 12-31-2021 Functional Status N/A [facility] Mental Status Date Assessment Result Facility 11-21-2022 Cognitive function Cognitive Sta tus Patient at Baseline [facility] Work Phone: Clinical Notes 04-02-2021 to 09-10-2023 Patient InstructionsColt Live DO - 09/08/2023 1:18 PM Meng Galloway [...] year from surgery documented in this encounter [facility] 09-08-2023 History of Present illness Narrative Patient [...] questions were answered. documented in this encounter [facility] 08-23-2023 History of Present illness Narrative Teaching [...] pain. No operative intervention required given appropriate mormonism of function. Follow up with dentistry for [...] is properly healing. Assessment / Diagnosis: Edentulous [610802] Normal post operative course Normal postoperative course. [...] were not included. documented in this encounter [facility] 08-18-2023 History of Present illness Narrative ORAL [...] is properly healing. Assessment / Diagnosis: Edentulous [338277] Normal post operative course Normal postoperative course. [...] were not included. documented in this encounter [facility] 07-27-2023 Evaluation + Plan note Associated Problem(s): Stage 3 chronic kidney disease (CMS/HCC) They have not followed up recently with Dr. Dean At one point her creatinine right about 4.2, May 2023 creatinine 2.06 [facility] Work Phone: 07-27-2023 Evaluation + Plan note Associated Problem(s): BMI 25.0-25.9,adult Her weight is down approximately 30 pounds. She relates this to recent mandibular fracture and difficulty with dentures. [facility] Work Phone: 07-27-2023 Miscellaneous Notes Associated Problem(s): [...] decline pharmacological assistance. documented in this encounter [facility] Work Phone: 07-27-2023 Evaluation + Plan note Associated Problem(s): Anticoagulated CHADS VASc 4 Currently on full dose Eliquis. Recent 30 pound weight loss puts her weight at 60 kg, discharge creatinine 2.0 Will reduce to Eliquis 2.5 mg twice daily She denies bleeding diatheses Had 1 accidental fall, denies recurrent episode. Briefly introduced Watchman device [facility] Work Phone: 07-27-2023 Evaluation + Plan note Associated Problem(s): Essential hypertension Optimal in office [facility] Work Phone: 07-27-2023 Evaluation + Plan note Associated Problem(s): Hyperlipidemia Moderate intensity statin [facility] Work Phone: 07-27-2023 Evaluation + Plan note Associated Problem(s): Pulmonary hypertension (CMS/HCC) October 2022 TTE RVSP 84 mmHg She denies any prior PE, has longstanding tobacco abuse, chronic hypoxia and COPD May 2023 TTE RVSP 60 mmHg RV function size reported to be normal [facility] Work Phone: 07-27-2023 Evaluation + Plan note Associated Problem(s): Abnormal echocardiogram May 2023 TTE LVEF 75% Aortic valve area 1.2 cm RVSP 60 mmHg [facility] Work Phone: 07-27-2023 Evaluation + Plan note Associated Problem(s): A-fib (CMS/HCC) PAF May 2023 discharge summary documents inpatient afib with RVR - spontaneous conversion RRR in office today No prior antiarrhythmic No MR [facility] Work Phone: 07-27-2023 Evaluation + Plan note Associated Problem(s): Aortic stenosis October 2022 TTE Aortic Stenosis p46;m26 May 2023 TTE Aortic stenosis p28:m15 JUDITH 1.2 centimeter squared [facility] Work Phone: 07-26-2023 Evaluation + Plan note Associated Problem(s): Current smoker 'can take it or leave it' Did ok while in SNF Currently 5 per day Continued every day tobacco use. Have reviewed the negative cardiovascular impact of nicotine. Continues to decline pharmacological assistance. [facility] Work Phone: 07-26-2023 History of Present illness Narrative Chief Complaint I am getting along Reason for Visit Patient presents to the office today for outpatient follow-up for hospital follow-up. Last evaluated in clinic by myself March 2023. In December 2022 patient transferred care to [facility]. I still have not been able to obtain prior cardiology records. They deny any prior LA or cardiac catheterization, report prior stress testing. [...] somewhat difficult historians. She reestablished care with [facility] during summer 2022. Have not been able to get [facility] cardiology records. They deny any prior cardiac cath or LA but do report prior stress testing. I [...] incidence of candidiasis. Do not swallow. HYDROcodone-acetaminophen ([place]) 5-325 mg tablet 1 tablet, oral levETIRAcetam [...] stenosis p28:m15 JUDITH 1.2 centimeter squared A-fib (CMS/HCC) PAF May 2023 discharge summary documents inpatient afib with RVR - spontaneous conversion RRR in office today No prior antiarrhythmic No MR Abnormal echocardiogram May 2023 TTE LVEF 75% Aortic valve area 1.2 cm RVSP 60 mmHg Pulmonary hypertension (CMS/HCC) October 2022 TTE RVSP [...] with dentures. Stage 3 chronic kidney disease ([facility]) They have not followed up recently [...] contact the office if new symptoms arise. MEDICAL SECRETARY 6 months Annika Kaba MSN, PUFFER TENDER-GUEST RELATIONS ASSOCIATE, PMHNP-[facility] Please excuse any errors in grammar or translation related to this dictation. Voice recognition software was utilized to prepare this document. documented in this encounter [facility] Work Phone: 07-26-2023 Instructions NATALIE Gonsalez - [...] contact the office if new symptoms arise. MEDICAL SECRETARY 6 months You need to stop smoking. Though it is not easy, more than half of all adults smokers have quit. We encourage you to write down all the reasons you should quit smoking and set a quit date for yourself. Ask us how we can help. You may also call 2-316-FCLK-NOW for free resources and assistance. documented in this encounter [facility] Work Phone: 06-15-2023 Telephone encounter Note What is the need: Medicare TOC SNF Review Situation: Patient approaching the 30 day readmission period Background: Attending Meng Whitaker MD Date of Admission 05/13/2023 Date of Discharge 05/18/2023 [facility] FINAL DIAGNOSES: Hospital Problems as of 05/18/2023 * (Principal) H/O traumatic fracture Assessment: Reviewed careport patient remains in SNF 05/18/2023 7:35 PM EST [facility] ([facility]) Recommendation: continue [facility] SN[facility] Review Program closed at this time [facility] Work Phone: 06-15-2023 Miscellaneous Notes What is the need: Medicare TOC SNF Review Situation: Patient approaching the 30 day readmission period Background: Attending Meng Whitaker MD Date of Admission 05/13/2023 Date of Discharge 05/18/2023 [facility] TRAUMA SURGERY FINAL DIAGNOSES: Hospital Problems as of 05/18/2023 * (Principal) H/O traumatic fracture Assessment: Reviewed careport patient remains in SNF 05/18/2023 7:35 PM EST [facility] ([facility]) Recommendation: continue [facility] SNF Review Program closed at this time documented in this encounter [facility] 06-09-2023 Colt Price DO - 06/09/2023 8:55 AM EST Weight [...] Dr. James Noriega who sees patients at [facility] documented in this encounter [facility] 06-09-2023 History of Present illness Narrative Doing well overall. Has had difficulties ambulating for months prior to fall. Has not been worked up much. Bilateral foot drop which was new in the past few months but present prior to surgery. Recommended she see neurology or spine surgeon near [place]. They are closer to [facility] and 1.5 hrs from here. They would prefer to see someone at [facility]. On eliquis. Incisions well healed. Ambulating [...] Dr. James Noriega who sees patients at [facility] documented in this encounter [facility] 06-01-2023 Telephone encounter Note What is the need: Medicare TOC SNF Review Situation: Patient within the 30 day readmission period Background: Attending Meng Whitaker MD Date of Admission 05/13/2023 Date of Discharge 05/18/2023 [facility] SURGERY FINAL DIAGNOSES: Hospital Problems as of 05/18/2023 * (Principal) H/O traumatic fracture Assessment: Reviewed careport patient remains in SNF 05/18/2023 7:35 PM EST [facility] ([facility]) Recommendation: continue [facility] SNF Review Process [facility] Work Phone: 06-01-2023 Miscellaneous Notes What is the need: Medicare TOC SNF Review Situation: Patient within the 30 day readmission period Background: Attending Meng Whitaker MD Date of Admission 05/13/2023 Date of Discharge 05/18/2023 [facility] TRA[facility]MA SURGERY FINAL DIAGNOSES: Hospital Problems as of 05/18/2023 * (Principal) H/O traumatic fracture Assessment: Reviewed careport patient remains in SNF 05/18/2023 7:35 PM EST [facility] ([facility]) Recommendation: continue [facility] SNF Review Process documented in this encounter [facility] 05-25-2023 Telephone encounter Note What is the need: Medicare TOC SNF Review Situation: Patient within the 30 day readmission period Background: Attending Meng Whitaker MD Date of Admission 05/13/2023 Date of Discharge 05/18/2023 [facility] FINAL DIAGNOSES: Hospital Problems as of 05/18/2023 * (Principal) H/O traumatic fracture Assessment: Reviewed careport patient remains in SNF 05/18/2023 7:35 PM EST [facility] ([facility]) Recommendation: continue [facility] SNF Review Process Elmo Allen RN [facility] Work Phone: 05-25-2023 Miscellaneous Notes What is the need: Medicare TOC SNF Review Situation: Patient within the 30 day readmission period Background: Attending Meng Whitaker MD Date of Admission 05/13/2023 Date of Discharge 05/18/2023 [facility] DIVISION OF TRAUMA SURGERY FINAL DIAGNOSES: Hospital Problems as of 05/18/2023 * (Principal) H/O traumatic fracture Assessment: Reviewed careport patient remains in SNF 05/18/2023 7:35 PM EST [facility] ([facility]) Recommendation: continue [facility] SNF Review Process Elmo Allen RN documented in this encounter [facility] 05-19-2023 Miscellaneous Notes Patient discharged to a SNF Name of SNF: [facility] Phone number: [phone] [facility] review documented in this encounter [facility] 05-19-2023 Telephone encounter Note Patient discharged to a SNF Name of SNF: [facility] Phone number: [phone] [facility] discharge review [facility] Work Phone: 05-18-2023 Note DISCHARGE SUMMARY [address] [address] Kate Hagen Date of : 1950 72 year oldfemale Attending Meng Whitaker MD Date of Admission 05/13/2023 Date of Discharge 05/18/2023 [facility] DIVISION OF TRAUMA SURGERY FINAL DIAGNOSES: Hospital Problems as of 05/18/2023 * (Principal) H/O traumatic fracture C. difficile colitis Diabetes mellitus type II, non insulin dependent (HCC) Congestive heart failure (HCC) Hypertension Closed displaced intertrochanteric fracture of right femur (HCC) Fall Fracture of left side of mandible (HCC) TMJ (dislocation of temporomandibular joint), initial encounter [...] intertrochanteric fracture of right femur, initial encounter ([facility]) senna (SENOKOT) 8.6 MG tablet Take 1 Tablet by mouth daily as needed for Constipation. Qty: 30 Tablet, Refills: 0 naloxone 4 mg/0.1 mL nasal liquid Use 1 Cloud[place] in one nostril (alternate sides) as needed [...] metolazone (ZAROXOLYN) tablet, 2.5 mg, Oral, Daily, Johnson Chau APRN-CNP, 2.5 mg at 05/18/23 1008 bumetanide (BUMEX) tablet, 2 mg, Oral, 2x Daily Diuretic, Johnson Chau APRN-CNP, 2 mg at 05/18/23 1145 bumetanide (BUMEX) tablet, 1 mg, Oral, At Bedtime, Johnson Chau APRN-CNP, 1 mg at 05/17/232200 ALPRAZolam (XANAX) tablet, 0.5 mg, Oral, Daily PRN, Johnson Chau APRN-CNP guaifenesin (MUCINEX) 600 MG 12 hour tablet, 600 mg, Oral, 2x Daily PRN, Johnson Chau APRN-GUEST RELATIONS ASSOCIATE, 600 mg at 05/17/232200 ondansetron (ZOFRAN) 4 MG/2ML injection, 4 mg, Intravenous Push, Q4H PRN, Becca Valles MD, 4 mg at 05/15/23 0237 albuterol (PROVENTIL HFA (more content not included)... [facility] 05-18-2023 Note Discharge plan remai ns SNF. Pt has been accepted at [facility]. Pt does not require precert prior to transfer, awaiting medical clearance. Lidia Morel, TRUCK HEADLIGHT ASSEMBLER, BALLET SOLOIST [facility] 05-16-2023 Note Orthopaedics Progres s Note Kate Hagen [id number] S: No acute events overnight. Tachycardia overnight. [...] per trauma; skilled for SNF Andre Colunga, DO Orthopaedic Surgery, PGY-4 Ortho Team A Pager [phone] ([employer] Chat works best - please include all of Team A in [employer] messages) After 5 pm and on weekends, please page communication electronic technician resident ([phone]) with questions or concerns. [facility] 05-15-2023 Note SPEECH METAL MOCKUP MAKER OLOGY SWALLOW EVALUATION: [id number] Referral received, chart [...] arteries, PICA/AICA branches, basilar artery, SCAs and investigator claims are patent. No vessel cutoff, aneurysm or [...] related pu (more content not included)... [facility] 05-15-2023 Note GERIATRIC CONSULTATI ON Patient Name: Kate Hagen Location: [place] [address] PCP: No primary care provider on file. Geriatric Medicine team has been consulted by Jose Carbajal DO to provide recommendations for the [...] - reliable historian discussion with patient's family/responsible libertarian - reliable historian discussion with nursing staff [...] consult: Polypharmacy; frequent falls Home meds per Johnson Chau, JERMAINE-GUEST RELATIONS ASSOCIATE note: - Atorvastatin 20 mg daily - [...] receiving opioids - follow-up with PCP at [facility] for further benzo taper - may continue [...] liquids, prior work-up reportedly normal - consider FINANCIAL REPORTING SPECIALIST for swallow evaluation Discharge planning - tentative [...] Pain: Yes, chronic R shoulder pain on [place] Change in ADLs: Yes, s/p R hip fracture Dressing: independent Grooming: independent Bathing: moderate assistance Toileting: independent Continence: independent Feeding: independent Transfers: independent Transportation: moderate assistance Grocery shopping: moderate assistance Meal preparation: moderate assistance Housecleaning: moderate assistance Laundry: moderate assistance Finances: minimal assistance, occasionally needs reminders Telephone use: independent Medications: independent Living Situation: with 2 daughters, ni (more content not included)... [facility] 05-15-2023 Note Orthopaedic Surgery Progress Note [...] Oral 117 20 100 % Nasal cannula 05/14/232014 -- -- -- -- 18 -- Nasal cannula 05/14/23 1945 -- -- -- -- -- -- Nasal cannula 05/14/23 1719 117/62 98.5 ???F (36.9 ???C) Oral 115 16 99 % Nasal cannula 05/14/23 1630 92/74 -- -- 114 17 97 % Nasal cannula 05/14/23 1615 110/82 -- -- 113 18 96 % Nasal cannula 05/14/23 1600 137/79 98.2 ???F (36.8 ???C) Temporal 120 19 100 % Nonrebreather 05/14/23 1223 -- -- -- 82 19 98 % Nasal cannula 05/14/23 1100 117/60 97.9 ???F (36.6 ???C) Oral 86 20 99 % Nasal cannula 05/14/23 0916 -- -- -- 90 18 98 % Nasal cannula 05/14/23 0905 97/60 -- -- 84 -- -- Nasal cannula -- Gen: NAD, AOx3 RLE: - baseline 3/5 dorsiflexion - 5/ PF/EHL - SILT s/s/t/dp/sp - 2+ DP [...] Gap Glu BUN Cr Ca Mg PO4 05/15/233 1.4 05/15/23 0203 135 Comment: Note updated [...] Team A: Ortho Team A: Summer PGY-3 [phone]); Fritz PGY-1 [phone]), Keanu PGY-4 ([phone]) Between 5pm-7am, weekends, and holidays please page ortho consult pager with urgent/emergent issues, [phone] [facility] 05-15-2023 Note PHYSICAL THERAPY ACU TE EVALUATION Referral received, chart reviewed. Time In: 814 Time Out: 824 Patient seen for 10 minutes evaluation Unit: [facility] Admit date/time: 05/13/2023 9:30 PM Reason for [...] wks d/t mandibular fracture Contact Precautions: CDiff [place] Full Code NPO RESEARCH ASST Status: Ambulatory with Cane at Baseline (+) [...] to decrease pain and to go home RESEARCH ASST Status: Mod I for household mobility using [...] mobility. Recommend further therapy services in a Assisted Setting once medically cleared. Will continue to [...] independent Patien (more content not included)... [facility] 05-15-2023 Note OCCUPATIONAL THERAPY INITIAL EVALUATION Per RN: to keep patient at bed level for evaluation secondary to A-fib with RVR this A.M. Patient seen from 8:13 AM to 8:25 AM on 5 [facility] unit for 12 minutes. Reason for Admit: 72 year old female presents to [facility] c/o right hip pain after falling. Diagnosis: Displaced (L) mandibular condyle fracture with dislocated (L) TMJ joint (R) Intertrochanteric Femur Fx Precautions/Activity Order: [place] Full code Contact precautions: C-diff WBAT RLE [...] Dep Max Mod Min CG CS DS LA I Set-Up Comment Feeding x Grooming/Hygiene x x Simulated at bed level Bathing:UB x Simulated at bed level Bathing:LB x Simulated at bed level Dressing:UB x x To adjust hospital gown at bed level Dressing: LB x To adjust socks at bed level Toileting x Kim+ Transfers/Bed Mobility: Assistance Level Dep Max Mod Min CG CS DS LA I Set-Up Comment Toilet Transfers NT: deferred secondary to a-fib with RVR; RN requesting OT hold mobility at this time Bed Transfers Bed Mobility Endurance for Self Care: Impaired Static Sitting Balance: Impaired Dynamic Sitting Balance: Impaired UE Motor: (B) UE AROM shoulder flexion ~3/4 range (B) UE elbow flex/ext WFL (B) UE wrist flex/ext WFL (B) patient relations director strength 4/5 Cognition: Orientation: Oriented to person, place, and date Follows Commands: WFL Patient/Family Education: Patient instructed in roles, goals, treatment plan: demonstrated good verbal understanding Patient up in bed with call light in reach. DME: With Patients permission ordered no equipment via [employer] Order. If any questions contact [facility] DME Provider at [phone]. [phone] Clicks Daily Activity OT 05/15/2023 Help [...] Guard Assist/Supervision 4 - Non = Modified [place]/Independent ASSESSMENT: Kate Hagen s/p Cephalomedullary ramon right [...] transfers w (more content not included)... [facility] 05-14-2023 Note 05/14/23 2587 Assessment and Discharge Planning Evaluation READMISSION LESS [...] and intervene as needed for discharge planning. Tereza Tate MSW, SUBWAY REPAIR SUPERVISOR [facility] 05-14-2023 Note Orthopaedic Surgery Progress Note [...] 101 18 98 % Nasal cannula 3 05/13/232234 -- -- -- -- -- -- Nasal cannula 3 Gen: arousable, appropriately conversational RLE: - 5/5 DF/PF/EHL - SILT s/s/t/dp/sp - 2+ DP - Dressing c/d/i; no drainage noted; appropriate incisional tenderness Labs: CBC/PT/INR WBC RBC Hgb Hct MCV RDW Plt PT aPTT INR 05/14/23 1428 10.0 31.0 05/13/232333 31 05/13/232333 1.30 05/13/232333 9.7 2.98 9.4 27.0 91 14.1 149 Basic Metabolic Panel Na K Cl CO2 Gap Glu BUN Cr Ca Mg PO4 05/14/23 1428 146 05/14/23 1428 135 3.2 100 05/13/232333 134 Comment: Note updated reference ranges. 3.5 [...] trauma Cathy Juárez MD, PGY-2 Orthopaedic Surgery [facility] Pager: [phone] Ortho Team B: Cathy Juárez MD, PGY-2 Pager [phone] Jennifer Pond, PGY-2 Pager [phone] Pau Weaver MD, PGY-2 Pager [phone] Team A: Summer PGY-3 [phone]); Fritz PGY-1 [phone]), Keanu PGY-4 [phone]) Elective Team: Stephanie PGY-3 [phone]); Alyssa PGY-2 ([phone]) Hand Team: Rachel PGY-3 ([phone]) After 5pm, weekends, and holidays please page Ortho consult pager, [phone] [facility] 05-14-2023 Note EXAMINATION: XR CHES T AP OR PA 1 VIEW 05/14/2023 10:20 AM CLINICAL HISTORY: pre-operative evaluation ASSOCIATED DIAGNOSIS: pre-operative evaluation ORDERING PROVIDER: JOHNSON CHAU TECHNEARLE NOTE: COMPARISON: XR CHEST AP [...] atelectasis or airspace disease. MACRO: None [facility] 05-14-2023 Note PHYSICAL THERAPY KARI RT REVIEW Referral received, chart reviewed. Admit [...] Hysterectomy Hernia Repair Precautions: Contact Precautions: CDiff [place] Full Code NPO RESEARCH ASST Status: Ambulatory with Cane at Baseline (+) multiple falls over the past few weeks Plan is OR this date with Orthopedics for (R) Intertrochanteric Femur Fx Will HOLD PT Eval and f/u post-operatively Report to follow Kathleen Alonzo, PT, MPT (B) [phone] *Secure Chat with Questions [facility] 05-14-2023 Note I have reviewed the patient's History and Physical Examination. I have personally seen and evaluated the patient, repeating kim portions. There is no significant interval change. Surgery is still indicated. Yes Consent reviewed and signed by patient/family: Yes Operative site verified: Yes Jennifer Pond, DO Orthopedic Surgery PGY-2 [facility] Orthopaedic Trauma After 6:00 PM, or on weekends, please page the orthopaedic on-call resident at [phone]. [facility] 04-28-2023 Hospital Discharge instructions Patient Education 04/28/2023 10:24:50 Urinary Tract Infection, Adult, Qyog-lx-Dqgk Urinary Tract Infection, Adult A urinary tract [...] Follow these instructions at home: Medicines Take jbpc-zhk-igfphly and prescription medicines only as told by [...] provider. Document Revised: 11/29/2020 Document Reviewed: 11/29/2020 [employer] Patient Education 2022 [employer]Link. Follow Up Care 02/22/2023 10:37:46 With:Alec XIE, CARLY Grove, URO Address: When:Within 3 Month(s) [facility] 04-03-2023 Evaluation + Plan note Associated Problem(s): Current smoker Continued every day tobacco use. Have reviewed the negative cardiovascular impact of nicotine. Continues to decline pharmacological assistance. [facility] Work Phone: 04-03-2023 Evaluation + Plan note Associated Problem(s): Stage 3 chronic kidney disease (CMS/HCC) Report establish follow-up with Dr. Dean Last creatinine in our system was 4.2 [facility] Work Phone: 04-03-2023 Miscellaneous Notes Associated Problem(s): [...] Problem(s): A-fib ([facility]) Daughter believes this was diagnosed during one of the hospitalizations prior to being under the care of of an NO. Regular rate and rhythm on exam Associated Problem(s): Aortic stenosis October 2022 TTE Aortic Stenosis p46;m26 documented in this encounter [facility] Work Phone: 04-03-2023 Evaluation + Plan note Associated Problem(s): Diabetes mellitus type II, non insulin dependent ([facility]) Maintained on statin No LONI/ARB due to CKD [facility] Work Phone: 04-03-2023 Evaluation + Plan note Associated Problem(s): Anticoagulated CHADS VASc 4 chronically anticoagulated full dose Eliquis age 72, weight 160 pounds. [facility] Work Phone: 04-03-2023 Evaluation + Plan note Associated Problem(s): Essential hypertension Optimal in office [facility] Work Phone: 04-03-2023 Evaluation + Plan note Associated Problem(s): Hyperlipidemia Low intensity statin [facility] Work Phone: 04-03-2023 Evaluation + Plan note Associated Problem(s): Abnormal echocardiogram October 2022 TTE LVEF 60 to 65% LA moderate/severe Aortic stenosis peak 46, mean 26 RVSP 84 mmHg (denies prior PE, longstanding tobacco abuse, chronic hypoxia and COPD) RV function and size were reportedly normal [facility] Work Phone: 04-03-2023 Evaluation + Plan note Associated Problem(s): A-fib (CMS/HCC) Daughter believes this was diagnosed during one of the hospitalizations prior to being under the care of of an [facility]. Regular rate and rhythm on exam [facility] Work Phone: 04-03-2023 Evaluation + Plan note Associated Problem(s): Aortic stenosis October 2022 TTE Aortic Stenosis p46;m26 [facility] Work Phone: 03-30-2023 History of Present illness [...] December visit I requested cardiology records from [facility] and those were not obtained. She [...] incidence of candidiasis. Do not swallow. HYDROcodone-acetaminophen ([place]) 5-325 mg tablet 1 tablet, oral levETIRAcetam [...] p46;m26 A-fib ([facility]) Daughter believes this was diagnosed during one of the hospitalizations prior to being under the care of of an [facility]. Regular rate and rhythm on exam Abnormal [...] insulin dependent ([facility]) Maintained on statin No LONI/ARB due to CKD Stage 3 chronic kidney disease ([facility]) Report establish follow-up with Dr. Dean [...] contact the office if new symptoms arise. MEDICAL SECRETARY 2 months I will get hospital records to see if she should be holding Kathie Annika Kaba MSN, PUFFER TENDER-GUEST RELATIONS ASSOCIATE, PMHNP-[facility] Please excuse any errors in grammar or translation related to this dictation. Voice recognition software was utilized to prepare this document. documented in this encounter [facility] Work Phone: 03-30-2023 Instructions NATALIE Gonsalez - [...] contact the office if new symptoms arise. MEDICAL SECRETARY 2 months I will get hospital records to see if she should be holding Eliquis documented in this encounter [facility] Work Phone: 02-22-2023 Note [id number] [facility] 02-22-2023 Note Cystoscopy ? Voiding after [...] you have a fever over 100 degrees. [facility] 02-22-2023 Hospital Discharge instructions Patient Education [...] Up Care 02/03/2023 10:05:26 With:Jacqui Michael Address: [address] [place] [address]- [phone] Business (1) [address] [place] [phone]- [phone] Business (1) When: Unknown Comments:Office to schedule follow up in 1 to 2 months [facility] 02-03-2023 Hospital Discharge instructions Patient Education 02/03/2023 10:01:15 Urinary Tract Infection, Adult, Rryn-wc-Gmqv Urinary Tract Infection, Adult A urinary tract [...] Follow these instructions at home: Medicines Take gcfl-tri-sytgvzv and prescription medicines only as told by [...] provider. Document Revised: 11/29/2020 Document Reviewed: 11/29/2020 [employer] Patient Education 2022 AdexLink. Follow Up Care 07/29/2022 09:55:50 With:Alec XIE, Jacqui Nieves, URL, URO Address: When: Unknown Comments:Sched cysto [facility] 12-29-2022 Hospital Discharge instructions Patient Education 12/29/2022 [...] Treatment for this condition includes: Antibiotic medicine. Clmx-gpu-ipvlvxt medicines to treat discomfort. Drinking enough water [...] Follow these instructions at home: Medicines Take dbye-njh-zcnruit and prescription medicines only as told by [...] provider. Document Revised: 11/29/2020 Document Reviewed: 11/29/2020 Lo Patient Education 2022 [employer]dexLink. Follow Up Care 12/23/2022 14:08:39 With:Alec XIE, ARIANNE GroveL, URO Address: When: Unknown [facility] Juan 11-21-2022 Progress note Note Date/Time November 21, 2022 11:31am [facility] [address] [place] [address] Cardiology Progress Note Signed Patient: Kate Hagen MR#: [id number] : 1950 Acct:[id number] Age/Sex: 71 / F Adm Date: 3 Loc: Room: [address] [place] [address] Type: ADM IN Attending Dr: Gina Poole [...] rate Rhythm: regular rhythm Heart Sounds: murmur (2 systolic ejection murmur at the right sternal [...] % (Auto) 70.8 Lymph % (Auto) 18.9 [place] % (Auto) 7.3 Eos % (Auto) 2.7 Baso % (Auto) 0.3 Nucleat RBC Rel Count 0.1 Neut # (Auto) 4.1 Lymph # (Auto) 1.1 [place] # (Auto) 0.4 Eos # (Auto) 0.2 Baso # (Auto) 0.0 PHA Creatinine Clear Sodium Potassium Chloride Carbon Dioxide Anion Gap BUN Creatinine Est GFR (CKD-EPI) Glucose POC Glucose 123 135 Calcium 11/21/22 11/21/22 04:47 08:37 Corrected WBC Uncorrected WBC Count RBC Hgb Hct MCV MCH MCHC RDW Plt Count MPV Neut % (Auto) Lymph % (Auto) [place] % (Auto) Eos % (Auto) Baso % (Auto) Nucleat RBC Rel Count Neut # (Auto) Lymph # (Auto) [place] # (Auto) Eos # (Auto) Baso # [...] aggressive diuresis Documented By: Colin Carrillo MD, [facility] 3 1127 Signed By: <Electronically signed by [facility] Colin Carrillo> 11/21/22 1131 [facility] Work Phone: 1(754) 667-951507-21-2023 Progress note Author Gina Poole [facility] November 20, 2022 2:12pm Note Date/Time November 20, 2022 2:12 pm [facility] [address] [place] [address] Hospitalist Progress Note Signed Patient: Kate Hagen MR#: [id number] : 1950 Acct:[id number] Age/Sex: 71 / F Adm Date: 3 Loc: Room: [address] [place] [address] Type: ADM IN Attending Dr: Gina Poole [...] Ml Insuln.Pen SUBCUT 11/19/23 11:59 Not Given TID.WM.MID [facility] Protocol Magnesium Oxide 400 mg 11/19/22 09:00 [...] signed by Gina Poole DO> 11/20/22 1412 [facility] Work Phone: 1(551) 522-785207-21-2023 Progress note Author Jose Arriaga [facility] November 20, 2022 10:30am Note Date/Time November 20, 2022 10:3 0am [facility] [address] [place] [address] Cardiology Progress Note Signed Patient: Kate Hagen MR#: [id number] : 1950 Acct:[id number] Age/Sex: 71 / F Adm Date: 3 Loc: Room: [address] [place] [address] Type: ADM IN Attending Dr: Gina Poole [...] MPV Neut % (Auto) Lymph % (Auto) [place] % (Auto) Eos % (Auto) Baso % (Auto) Nucleat RBC Rel Count Neut # (Auto) Lymph # (Auto) [place] # (Auto) Eos # (Auto) Baso # [...] % (Auto) 68.4 Lymph % (Auto) 22.4 [place] % (Auto) 6.7 Eos % (Auto) 2.1 Baso % (Auto) 0.4 Nucleat RBC Rel Count 0.1 Neut # (Auto) 3.7 Lymph # (Auto) 1.2 [place] # (Auto) 0.4 Eos # (Auto) 0.1 [...] MPV Neut % (Auto) Lymph % (Auto) [place] % (Auto) Eos % (Auto) Baso % (Auto) Nucleat RBC Rel Count Neut # (Auto) Lymph # (Auto) [place] # (Auto) Eos # (Auto) Baso # [...] Patient will require close follow-up. Documented By: Jose Arriaga MD [id number] Signed By: <Electronically signed by MD Jose Arriaga> 11/20/22 103 [facility] Work Phone: 1(931) 676-520707-20-2023 Consult note Author Jose McGuinn [facility] November 19, 2022 2:59pm Note Date/Time November 19, 2022 2:59 pm [facility] [address] [place] [address] Cardiology Consult Note Signed Patient: Kate Hagen MR#: [id number] : 1950 Acct:[id number] Age/Sex: 71 / F Adm Date: 3 Loc: Room: [address] [place] [address] Type: ADM IN Attending Dr: Gina Poole [...] Medical History (Updated 11/19/22 @ 14:58 by Jose Arriaga MD) Afib Anxiety Arthritis Bronchial asthma [...] Lymph # (Auto) 1.5 1.6 (1.00-4.8) x10E3/uL [place] # (Auto) 0.4 0.4 (0.0-0.8) x10E3/uL Eos [...] inpatient hospital heart failure treatment. Documented By: Jose Arriaga MD 1452 Signed By: <Electronically signed by MD Jose Arriaga> 11/19/22 1765 [facility] Work Phone: 1(741) 890-911707-20-2023 Progress note Author Gina Poole [facility] November 19, 2022 11:54am Note Date/Time November 19, 2022 11:5 4am [facility] [address] [place] [address] Hospitalist Progress Note Signed Patient: Kate Hagen MR#: [id number] : 1950 Acct:[id number] Age/Sex: 71 / F Adm Date: 3 Loc: Room: [address] [place] [address] Type: ADM IN Attending Dr: Gina Poole [...] signed by Gina Poole DO> 11/19/22 1154 [facility] Work Phone: 1(617) 326-461507-20-2023 History and physical note Author Gina Poole [facility] November 18, 2022 10:13pm Note Date/Time November 18, 2022 10:1 1pm [facility] [address] [place] [address] Hospitalist H&P Signed Patient: Kate Hagen MR#: [id number] : 1950 Acct:[id number] Age/Sex: 71 / F Adm Date: 3 Loc: Room: [address] [place] [address] Type: ADM IN Attending Dr: Gina Poole [...] % (Auto) 22.5 % (.) 11/18/22 17:51 [place] % (Auto) 5.7 % (.) 11/18/22 17:51 Eos % (Auto) 1.7 % (.) 11/18/22 17:51 Baso % (Auto) 0.7 % (.) 11/18/22 17:51 Nucleat RBC Rel Count 0.0 /100 WBC (0-0.5) 11/18/22 17:51 Neut # (Auto) 4.7 x10E3/uL (1.8-7.7) 11/18/22 17:51 Lymph # (Auto) 1.5 x10E3/uL (1.00-4.8) 11/18/22 17:51 [place] # (Auto) 0.4 x10E3/uL (0.0-0.8) 11/18/22 17:51 [...] signed by Gina Poole DO> 11/18/22 2212 [facility] Work Phone: 1(440) 826-886406-27-2023 NoteHypertension is well controlled 108/62 Continue all meds Renal function stable for her- will continue to monitor and pt states she is to [facility] NoteNYHC- III- currently fluid overloaded and weight gain of 15 pounds in 2 weeks [facility] Diuretic therapy-increase bumex to 2mg in am and 1 mg in pm, repeat BMP next week Monitor daily weights, I&O, fluid restriction 1.5-2L/day, renal function and electrolytes- RTC 1month for re-[facility]alautionUnMedina [facility]06-27-2023 Note Repeat limited echo to assess RV function, RVSP- rt sided pressures, and noted D shaped septum on inpt echo.[facility]06[facility]23 Note BAL2eg4-EPSg= 4 continue metoprolol for rate control, and eliquis anticoagulationUnMedina Hospital06-27-2023 NotePatient here for follow up [facility] for CHF. She was seen as [...] weakness. All other systems reviewed and are negative.[facility] 10-27-2022 NoteUTP CARDIOLOGY PROGRESS NOTE HPI: Kate Hagen is a 71 y.o. female here for No chief complaint on file. Patient here for follow up [facility] for CHF. She was seen as [...] fever, chills. She recently was inpt at [facility] for resp failure, exacerbation of HFpEF, [...] Tachycardia - sinus Hypertension Paroxysmal atrial fibrillation; DTLAY0GHRd - 4 (age, female, HTN, HF) - [...] reviewed CV Testin10/09/22 Echo (more content not included)...[facility]23 Note [facility] Cardiology Clinic Note Chief Complaint: patient [...] Eliquis. HPI: Kate was originally seen by [place] [facility] during her admission to [facility] at the beginning of March,. She [...] 04/13/2022 Today she was just discharged from [facility] where she was admitted for UTI. [...] a past medical history of Atrial fibrillation ([facility]) and CHF (congestive heart failure) ([facility]). Surgical History She has no past [...] pressures. Event monitor: Sinus (more content not included)...[facility]04-27-[facility]23 Evaluation note* Encounter Date Diagnosis Assessment [...] We will check PTH and vitamin D. [facility] Other 03-29-2023 Hospital Discharge instructions Patient Education [...] in your pocket, or use a mobile homar or website. Some programs will calculate calories [...] 04/19/2006 Document Revised: 01/06/2019 Document Reviewed: 03/19/2017 [employer] Patient Education 2020 A[employer]Link. Follow Up Care 06/10/2022 11:44:43 With:Alec XIE, CARLY Grove, URO Address: When:Within 6 Month(s) [facility] Juan 03-06-2023 [facility] Note Chief Complaint: Patient here for 3 mo follow up CHF and afib. She was started on spironolactone at last apt in Apr 2022 by Linette Sanchez CNP. Had labs a few days after that. Denies chest pain and palpitations. Denies lightheadedness and bleeding on Eliquis. HPI: Kate was originally seen by [place] [facility] during her admission to [facility] at the beginning of March,. She [...] 04/13/2022 Today she was just discharged from [facility] where she was admitted for UTI. [...] fraction (HFrEF) Tachycardia Hypertension Paroxysmal atrial fibrillation; BXSVB4ERBq - 4 (age, female, HTN, HF) - she requires long-term anticoagulation for stroke prophylaxis. She denies bleeding issues. Continue Eliquis 5mg BID. Nonrheumatic aortic valve stenosis; moderate on echocardiogram 08/2021 Benign hypertensive kidney disease with chronic kidney disease stage I through stage IV Plan: The patient's daughter tells me that her mother's heart rate is typical (more content not included)...[facility]02-[facility]23 Hospital Discharge instructions Patient Education 06/10/2022 [...] Follow these instructions at home: Medicines Take tcwz-wme-gydnrgg and prescription medicines only as told by [...] or the blood stops without treatment. Take krer-owg-tspjbkt and prescription medicines only as told by your health care provider. Drink enough fluid to keep your urine clear or pale yellow. This information is not intended to replace advice given to you by your health care provider. Make sure you discuss any questions you have with your health care provider. Document Released: 04/19/2006 Document Revised: 09/13/2019 Document Reviewed: 05/22/2017 [employer] Patient Education 2019 AdexLink. Follow Up Care 05/06/2022 14:07:41 With:Alec XIE, CARLY Grove, URO Address: When: Unknown [facility] 12-12-2022 NotePatient here for follow up [facility] for CHF. She was seen as inpatient consult on 03/06/2022 by Madi Sanchez CNP. She was just discharged from [facility] again today for UTI and pneumonia. She will be having iron infusions set up soon for anemia. Denies chest pain and bleeding on Eliquis. Review of Systems Cardiovascular: Positive for dyspnea on exertion. Respiratory: Positive for shortness of breath. Musculoskeletal: Positive for muscle weakness. Neurological: Positive for seizures (hx of). All other systems reviewed and are negative.[facility] 04-13-2022 NoteCardiovascular Medicine [facility] SUBJECTIVE Chief Complaint Patient presents with Congestive Heart Failure Atrial Fibrillation Kate Hagen is a 71 y.o. female here for follow-up. MARIBEL Love was originally seen by [place] [facility] during her admission to [facility] at the beginning of March,. She [...] 04/13/2022 Today she was just discharged from [facility] where she was admitted for UTI. [...] is warm and dry. (more content not included)...[facility]10[facility] Hospital Discharge instructions Patient Education 02/16/2022 [...] drinks. ?Tomatoes and foods made with tomatoes. ?Muldraugh or spicy foods. ?Chocolate and peppermint. Do not drink alcohol. General instructions Take qedq-ywx-nlswcxp and prescription medicines only as told by [...] unsweetened, w/added ascorbic acid 1 cup 0.5 Bapchule 1 cup 0.7 Vegetables Cooked Green beans 1 cup 4.0 Carrots 1/2 cup sliced 2.3 Peas 1 cup 8.8 Potato (baked, with skin) 1 medium potato 3.8 Raw [place] (with peel) 1 cucumber 1.5 Lettuce 1 [...] Peanuts 1/2 cup 7.9 Chart from [facility] 2013. 02/16/2022 13:00:15 Colonoscopy, Care After Surgery Chelsea [...] Up Care 12/31/2021 15:48:46 With:Kylah BELL Address: [address] [place] [address]. [address] [place] [address] Business (1) When: Unknown Comments:Call for any problems.Office will call to schedule follow up appointment (appointment for 1-2 weeksfrom today) [facility]10-17-2022 Evaluation + Plan noteExtracted from: Title:Anesthesia post op endo Author:Barry Huddleston MD Date:02/16/22 Plan Transfer/ Discharge: Patient can be discharged from PACU when criteria met. Condition good. Extracted from: Title:Anesthesia Pre-Op endo Author:Mine Huddleston MD Date:02/16/22 Plan [place] [employer] Anesthesiologists (ASA) physical status classification: [...] Diff 12/31/21 * Comprehensive Metabolic Panel 12/31/21 [facility]08-31-2022 Hospital Discharge instructions Patient Education 12/31/2021 [...] drinks. ?Tomatoes and foods made with tomatoes. ?Muldraugh or spicy foods. ?Chocolate and peppermint. Do not drink alcohol. General instructions Take xbbg-bir-kzbxbgh and prescription medicines only as told by [...] 07/09/2004 Document Revised: 08/15/2018 Document Reviewed: 08/15/2018 [employer] Patient Education 2020 Elsevier Inc. Follow Up Care 11/24/2021 14:47:03 With:Lani Wasserman CNP Address: When:1 to 2 weeks [facility] 08-13-2022 Evaluation note* Encounter Date [...] understanding and is agreeable with treatment plan [facility] Other 12-01-2021 History general Narrative - Reported* Type Description Date Medical History Macular degeneration bilateral e yes Medical History Continuous oxygen 2L/NC Medical History CHF- Does not follow with Cardio logy, managed by PCP Dr. Lora Medical History COPD Medical History Hx of COVID 04/2021 [facility] Other 12-01-2021 History general Narrative - Reported* [...] History HYSTERECTOMY 1994 Hospitalization History SEE ABOVE [facility] Other Consult note Author Jose Arriaga [facility] November 19, 2022 2:59pm Note Date/Time November 19, 2022 2:59 pm [facility] [address] [place] [address] Cardiology Consult Note Signed Patient: Kate Hagen MR#: [id number] : 1950 Acct:[id number] Age/Sex: 71 / F Adm Date: 3 Loc: Room: [address] [place] [address] Type: ADM IN Attending Dr: Gina Poole [...] Medical History (Updated 11/19/22 @ 14:58 by Jose Arriaga MD) Afib Anxiety Arthritis Bronchial asthma [...] Lymph # (Auto) 1.5 1.6 (1.00-4.8) x10E3/uL [place] # (Auto) 0.4 0.4 (0.0-0.8) x10E3/uL Eos [...] inpatient hospital heart failure treatment. Documented By: Jose Arriaga MD [id number] Signed By: <Electronically signed by MD Jose Arriaga> 11/19/22 3552 [facility] Work Phone: Discharge summary Author Gina Poole [facility] November 21, 2022 3:38pm Note Date/Time November 21, 2022 3:39 pm [facility] [address] [place] [address] Discharge Summary Signed Patient: Kate Hagen MR#: [id number] : 1950 Acct:[id number] Age/Sex: 71 / F Adm Date: 3 Loc: Room: [address] [place] [address]: Gina Poole DO Copies to: MD Gina Arambula II, DO~ Providers Date of Discharge: 11/21/22 Discharging Provider: Gina Poole Primary Care Provider: Barry Barber Consults: 11/19/22 11:55 Consult to Cardiology [...] % (Auto) 70.8, Lymph % (Auto) 18.9, [place] % (Auto) 7.3, Eos % (Auto) 2.7, Baso % (Auto) 0.3, Nucleat RBC Rel Count 0.1, Neut # (Auto) 4.1, Lymph # (Auto) 1.1, [place] # (Auto) 0.4, Eos # (Auto) 0.2, [...] signs - Medication management and education - [facility] on 11/26 - result to Primary [...] [id number] Location: Determined by Patient Ordered By: Jose Arriaga Initiate Home Health (Routine) Timeframe: 1 Day Location: Determined by Patient Ordered By: Gina Poole Follow Up: Annika Montanez APRN [Nurse Practitioner] - 12/28/22 2:00 pm (Follow-up withCardiology. ) Barry Barber II, MD [Primary Care Provider] - 11/24/22 11:00 am (You have been scheduled for a follow up appointment with Nurse Practioner for the following date and time, please call to reschedule if needed.) Documented By: Gina Poole DO 11/21/22 15 33 Signed By: <Electronically signed by Gina Poole DO> 11/21/22 2169 [facility] Work Phone: Evaluation + Plan note Future Appointments Appointment Date:02/06/2022 01:00:00 PM Scheduled Provider: Location:[facility] Appointment Type:Surgery PAT COVID Testing Appointment Date:02/16/2022 10:30:00 AM Scheduled Provider: Location:[facility] Appointment Type:Surgery FT Appointment Date:02/16/2022 12:30:00 PM Scheduled Provider: Location:[facility] Appointment Type:Surgery FT Future Scheduled Tests Laboratory* Fecal WBC Lactoferrin 12/31/21 * Giardia lamblia, Direct Detection EIA 12/31/21 * O & P Exam, Routine 12/31/21 * Clostridium difficile by PCR 12/31/21 * Enteric Panel by PCR 12/31/21 * CBC w/ Auto Diff 12/31/21 * Comprehensive Metabolic Panel 12/31/21 Radiology* CT Abdomen/Pelvis w/ Contrast 12/31/21 [facility] Evaluation + Plan note Future Appointments Appointment Date:02/16/2022 10:30:00 AM Scheduled Provider: Location:[facility] Appointment Type:Surgery FT Appointment Date:02/16/2022 12:30:00 PM Scheduled Provider: Location:[facility] Appointment Type:Surgery FT Future Scheduled Tests Laboratory* Fecal WBC Lactoferrin 12/31/21 * Giardia lamblia, Direct Detection EIA 12/31/21 * O & P Exam, Routine 12/31/21 * Clostridium difficile by PCR 12/31/21 * Enteric Panel by PCR 12/31/21 * CBC w/ Auto Diff 12/31/21 * Comprehensive Metabolic Panel 12/31/21 [facility] App[facility]ments Appointment Date:06/10/2022 09:30:00 AM Scheduled Provider:Alec XIE, Jacqui Nieves Location:[facility] Appointment Type:URO Office Visit Future Scheduled Tests Laboratory* Fecal WBC Lactoferrin 12/31/21 * Giardia lamblia, Direct Detection EIA 12/31/21 * O & P Exam, Routine 12/31/21 * Clostridium difficile by PCR 12/31/21 * Enteric Panel by PCR 12/31/21 * CBC w/ Auto Diff 12/31/21 * Comprehensive Metabolic Panel 12/31/21 [facility] Future Appointments Appointment Date:06/24/2022 08:30:00 AM Scheduled Provider: Location:[facility] Appointment Type:URO Nurse Visit Appointment Date:07/29/2022 09:00:00 AM Scheduled Provider:Jaqcui Michael MD Location:[facility] Appointment Type:URO Office Visit Diagnostic Tests [...] Comprehensive Metabolic Panel 12/31/21 [facility] evaluation + Plan note Future Appointments Appointment Date:06/24/2022 08:30:00 AM Scheduled Provider: Location:[facility] Appointment Type:URO Nurse Visit Appointment Date:07/29/2022 09:00:00 AM Scheduled Provider:Jacqui Michael MD Location:[facility] Appointment Type:URO Office Visit Diagnostic Tests Pending * Urine Culture 06/10/22 Future Scheduled Tests Laboratory* Fecal WBC Lactoferrin 12/31/21 * Giardia lamblia, Direct Detection EIA 12/31/21 * O & P Exam, Routine 12/31/21 * Clostridium difficile by PCR 12/31/21 * Enteric Panel by PCR 12/31/21 * CBC w/ Auto Diff 12/31/21 * Comprehensive Metabolic Panel 12/31/21 [facility] Future Appointments Appointment Date:07/29/2022 09:00:00 AM Scheduled Provider:Jacqui Michael MD Location:[facility] Appointment Type:URO Office Visit Future Scheduled Tests Laboratory* Fecal WBC Lactoferrin 12/31/21 * Giardia lamblia, Direct Detection EIA 12/31/21 * O & P Exam, Routine 12/31/21 * Clostridium difficile by PCR 12/31/21 * Enteric Panel by PCR 12/31/21 * CBC w/ Auto Diff 12/31/21 * Comprehensive Metabolic Panel 12/31/21 [facility] evaluation + Plan note Future Appointments Appointment Date:02/03/2023 09:00:00 AM Scheduled Provider:Jacqui Michael MD Location:[facility] Appointment Type:URO Office Visit Future Scheduled Tests Laboratory* Fecal WBC Lactoferrin 12/31/21 * Giardia lamblia, Direct Detection EIA 12/31/21 * O & P Exam, Routine 12/31/21 * Clostridium difficile by PCR 12/31/21 * Enteric Panel by PCR 12/31/21 * CBC w/ Auto Diff 12/31/21 * Comprehensive Metabolic Panel 12/31/21 [facility] evaluation + Plan note Future Appointments Appointment Date:02/08/2023 09:45:00 AM Scheduled Provider: Location:[facility] Appointment Type:Urology CALL PAT FT Appointment Date:02/22/2023 10:45:00 AM Scheduled Provider: Location:[facility] Appointment Type:Urology FT [facility] evaluation + Plan note Future Appointments Appointment Date:04/28/2023 09:45:00 AM Scheduled Provider:Jacqui Michael MD Location:[facility] Appointment Type:URO [facility] Future Appointments Appointment Date:05/14/2023 01:20:00 PM Scheduled Provider:Lani Wasserman CNP Location:[facility] Appointment Type:[facility] Follow Up [facility] evaluation + Plan note Future Appointments Appointment Date:03/15/2024 10:45:00 AM Scheduled Provider:Jacqui Michael MD Location:[facility] Appointment Type:URO Office Visit [facility] evaluation note* Diagnosis Onset Date Resolution Status CHF (congestive heart failure) acute CHF exacerbation acute [facility] Work Phone: Evaluation note* Diagnosis Onset Date Resolution Status Acute diastolic CHF (congest joan heart failure), NYHA class 3 acute Aortic stenosis acute CHF (congestive heart failure) acute CHF exacerbation acute Pulmonary hypertension acute [facility] Work Phone: Evaluation note* Diagnosis Paroxysmal atrial [...] Unspecified essential hypertension documented in this encounter [facility] Work Phone: Evaluation note* Diagnosis Nonrheumatic aortic valve stenosis Pulmonary hypertension (CMS/HCC) Other chronic pulmonary heart diseases documented in this encounter [facility] Work Phone: Evaluation note* Diagnosis Nonrheumatic aortic valve stenosis Pulmonary hypertension (CMS/HCC) Other chronic pulmonary heart diseases documented in this encounter [facility] Work Phone: Evaluation note* Diagnosis Closed displaced intertrochanteric fracture of right femur, initial encounter ([facility])- [facility] Diagnosis Closed displaced intertrochanteric fracture of right femur, initial encounter ([facility]) [facility]* Diagnosis Anticoagulated- Primary Encounter for long-term (current) use of anticoagulants Paroxysmal atrial fibrillation (CMS/HCC) Atrial fibrillation Nonrheumatic aortic valve stenosis Abnormal echocardiogram Nonspecific (abnormal) findings on radiological and other examination of other intrathoracic organs Pulmonary hypertension (CMS/HCC) Other chronic pulmonary heart diseases Mixed hyperlipidemia Essential hypertension Unspecified essential hypertension Diabetes mellitus type II, non insulin dependent (CMS/HCC) Type II or unspecified type diabetes mellitus without mention of complication, not stated as uncontrolled Stage 3b chronic kidney disease ([facility]) BMI 25.0-25.9,adult Current smoker documented in this encounter [facility] Work Phone: Evaluation note* Diagnosis Edentulous- Primary Anodontia [facility] Diagnosis Edentulous- Primary Anodontia [facility]* Diagnosis Closed displaced intertrochanteric fracture of right femur, initial encounter ([facility])- Primary [facility]* Diagnosis Closed displaced intertrochanteric fracture of right femur, initial encounter ([facility]) [facility] Author Gina Poole [facility] November 18, 2022 10:13pm Note Date/Time November 18, 2022 10:1 1pm [facility] [address] [place] [address] Hospitalist H&P Signed Patient: Kate Hagen MR#: [id number] : 1950 Acct:[id number] Age/Sex: 71 / F Adm Date: 3 Loc: Room: [address] [place] [address] Type: ADM IN Attending Dr: Gina Poole [...] % (Auto) 22.5 % (.) 11/18/22 17:51 [place] % (Auto) 5.7 % (.) 11/18/22 17:51 Eos % (Auto) 1.7 % (.) 11/18/22 17:51 Baso % (Auto) 0.7 % (.) 11/18/22 17:51 Nucleat RBC Rel Count 0.0 /100 WBC (0-0.5) 11/18/22 17:51 Neut # (Auto) 4.7 x10E3/uL (1.8-7.7) 11/18/22 17:51 Lymph # (Auto) 1.5 x10E3/uL (1.00-4.8) 11/18/22 17:51 [place] # (Auto) 0.4 x10E3/uL (0.0-0.8) 11/18/22 17:51 [...] 3 Documented By: Gina Poole DO 11/18/22 02 Signed By: <Electronically signed by Gina Poole DO> 11/18/22 8253 [facility] Work Phone: History of Present illness [...] medication regimen. She denies medication side effects. [place] [address] DO Work Phone: Hospital course Narrative No data available for this section [facility] Hospital Discharge instructions No data available for this section [facility] instructionsAmbulatory Orders* Initiate Home Health Time Frame: 1 Day, Location: Determined By Patient Additional Instructions Home Health to manage care: - Full code - PT/OT eval and treat - Routine vital signs - Medication management and education - [facility] on 11/26 - result to Primary Care Provider -[facility] Work Phone: Progress note No data available for this section [facility] Proydhvq note Author Gina Poole [facility] November 19, 2022 11:54am Note Date/Time November 19, 2022 11:5 4am [facility] [address] [place] [address] Hospitalist Progress Note Signed Patient: Kate Hagen MR#: [id number] : 1950 Acct:[id number] Age/Sex: 71 / F Adm Date: 3 Loc: 4P Room: [address] [place] [address] Type: ADM IN Attending Dr: Gina Poole [...] <Electronically signed by Gina Poole DO> 11/19/22 [facility] Work Phone: Progress note Author Jose Arriaga [facility] November 20, 2022 10:30am Note Date/Time November 20, 2022 10:3 0am [facility] [address] [place] [address] Cardiology Progress Note Signed Patient: Kate Hagen MR#: [id number] : 1950 Acct:[id number] Age/Sex: 71 / F Adm Date: 3 Loc: Room: 2Q9275-5 Type: ADM IN Attending Dr: Gina Poole [...] MPV Neut % (Auto) Lymph % (Auto) [place] % (Auto) Eos % (Auto) Baso % (Auto) Nucleat RBC Rel Count Neut # (Auto) Lymph # (Auto) [place] # (Auto) Eos # (Auto) Baso # [...] % (Auto) 68.4 Lymph % (Auto) 22.4 [place] % (Auto) 6.7 Eos % (Auto) 2.1 Baso % (Auto) 0.4 Nucleat RBC Rel Count 0.1 Neut # (Auto) 3.7 Lymph # (Auto) 1.2 [place] # (Auto) 0.4 Eos # (Auto) 0.1 [...] MPV Neut % (Auto) Lymph % (Auto) [place] % (Auto) Eos % (Auto) Baso % (Auto) Nucleat RBC Rel Count Neut # (Auto) Lymph # (Auto) [place] # (Auto) Eos # (Auto) Baso # [...] Patient will require close follow-up. Documented By: Jose Arriaga MD [id number] Signed By: <Electronically signed by MD Jose Arriaga> 11/20/22 1030 [facility] Work Phone: Progress note Author Gina Poole [facility] November 20, 2022 2:12pm Note Date/Time November 20, 2022 2:12 pm [facility] [address] [place] [address] Hospitalist Progress Note Signed Patient: Kate Hagen MR#: [id number] : 1950 Acct:[id number] Age/Sex: 71 / F Adm Date: 3 Loc: Room: [address] [place] [address] Type: ADM IN Attending Dr: Gina Poole [...] Insuln.Pen SUBCUT 11/19/23 11:59 Not Given TID.WM.HS [facility] Protocol Magnesium Oxide 400 mg [...] signed by Gina Poole DO> 11/20/22 1412 [facility] Work Phone: Progress note Author Colin Carrillo [facility] November 21, 2022 11:31am Note Date/Time November 21, 2022 11:3 1am [facility] [address] [place] [address] Cardiology Progress Note Signed Patient: Kate Hagen MR#: [id number] : 1950 Acct:[id number] Age/Sex: 71 / F Adm Date: 3 Loc: 4 Room: [address] [place] [address] Type: ADM IN Attending Dr: Gina Poole [...] % (Auto) 70.8 Lymph % (Auto) 18.9 [place] % (Auto) 7.3 Eos % (Auto) 2.7 Baso % (Auto) 0.3 Nucleat RBC Rel Count 0.1 Neut # (Auto) 4.1 Lymph # (Auto) 1.1 [place] # (Auto) 0.4 Eos # (Auto) 0.2 Baso # (Auto) 0.0 PHA Creatinine Clear Sodium Potassium Chloride Carbon Dioxide Anion Gap BUN Creatinine Est GFR (CKD-EPI) Glucose POC Glucose 123 135 Calcium 11/21/22 11/21/22 04:47 08:37 Corrected WBC Uncorrected WBC Count RBC Hgb Hct MCV MCH MCHC RDW Plt Count MPV Neut % (Auto) Lymph % (Auto) [place] % (Auto) Eos % (Auto) Baso % (Auto) Nucleat RBC Rel Count Neut # (Auto) Lymph # (Auto) [place] # (Auto) Eos # (Auto) Baso # [...] signed by MD PLACIDO Carrillo> 11/21/22 1131 [facility] Work Phone: Reason for referral (narrative)* Consultation (Routine) - Authorized Specialty Diagnoses / Procedures Referred By Contac t Referred To Contact Cardiology Diagnoses Paroxysmal atrial fibrillation (CMS/HCC) Procedures Follow Up In Cardiology Annika Kaba APRN-CNP [address] [address], [address] [address] Referral ID Status Reason Start Date Expiration Date V isits Requested Visits Authorized [id number] Authorized 03/30/2023 03/29/2024 1 1 * CV Imaging (Routine) - Pending Review Specialty Diagnoses / Procedures Referred By Contac t Referred To Contact Cardiology Diagnoses Nonrheumatic aortic valve stenosis Pulmonary hypertension (CMS/HCC) Procedures Transthoracic Echo (TTE) Complete MI ECHO TRANSTHORC R-T 2D W/WO M-MODE REC F-UP/LMTD MI DOP ECHOCARD COLOR FLOW VELOCITY MAPPING MI DOP ECHOCARD PULSE WAVE W/SPECTRAL F-UP/LMTD STD Annika Kaba APRN-CNP [address] [facility] 2, [address] [address] Referral ID Status Reason Start Date Expiration Date Visits Requested Visits Authorized [id number] Pending Review Perform Procedure 3 03/29/2024 1 1 [facility] Work Phone: Reason for referral (narrative)* Consultation (Routine) - Authorized Specialty Diagnoses / Procedures Referred By Contcharles t Referred To Contact Cardiology Diagnoses Paroxysmal atrial fibrillation (CMS/HCC) Procedures Follow Up In Cardiology Annika Kaba APRN-CNP 703 [facility] 2, [facility] [address] [place] [address] Referral ID Status Reason Start Date Expiration Date V isits Requested Visits Authorized [id number] Authorized 07/26/2023 07/25/2024 1 1 [facility] Work Phone: Summary Purpose Family History Relationship [...] disease: Mother(V17.3, Z82.49) Status:Active Aortic valve replaced: Mothe r(V43.3, Z95.2) Status:Active Family history of myocardial [...] Documents on File Type Date Recorded Patient Crew Boss Expl anation Advance Directives and Living Will 05/29/2022 2021-08-01 Healthcare POA Chief Complaint and Reason for [...] Dentistry Diagnoses Edentulous Meng Leos DMD, MD [address] [place] [address] [place] [address] Referral ID Status Reason Start Date Expiration Date V isits Requested Visits Authorized [id number] Authorized 08/18/2023 02/14/2024 3 3 Scheduling Instructions Please call the Dental Clinic at [facility] at to schedule an appointment if one was not made for you today. Comments Please treat patient for current denture adjustment, and if possible new dentures. Patient had mandibular fracture in May 2023. Specialty Diagnoses / Procedures Referred By Jack lorenzo Referred To Contact Radiology Diagnoses Closed displaced intertrochanteric fracture of right femur, initial encounter ([facility]) Procedures XR FEMUR RIGHT MINIMUM 2 VIEWS Kayden Lee PA-C [address] [place] [address] [facility] [address] [facility] [place] [address] Referral ID Status Reason Start Date Expiration Date V isits Requested Visits Authorized [id number] Authorized 06/07/2023 06/06/2024 1 1 Specialty Diagnoses / Procedures Referred By Contac t Referred To Contact Radiology Diagnoses Closed displaced intertrochanteric fracture of right femur, initial encounter (HCC) Procedures XR HIP RIGHT W/ PELVIS MIN 2-3 VIEWS Kayden Lee PA-C [address] [place] [address] [facility] [address] [facility] [address] [id number] Referral ID Status Reason Start Date Expiration Date V isits Requested Visits Authorized [id number] Authorized 06/07/2023 06/06/2024 1 1 Specialty Diagnoses / Procedures Referred By Contac t Referred To Contact Cardiology Diagnoses Nonrheumatic aortic valve stenosis Pulmonary hypertension (CMS/HCC) Procedures Transthoracic Echo (TTE) Complete MI ECHO TRANSTHORC R-T 2D W/WO M-MODE REC F-UP/LMTD MI DOP ECHOCARD COLOR FLOW VELOCITY MAPPING MI DOP ECHOCARD PULSE WAVE W/SPECTRAL F-UP/LMTD STD Annika Kaba, PUFFER TENDER-GUEST RELATIONS ASSOCIATE 703 [facility] 2, [address] [address] Referral ID Status Reason Start Date Expiration Date Visits Requested Visits Authorized [id number] Pending Review Perform Procedure 3 03/29/2024 1 1 Additional Source Comments INFORMATION SOURCE (unrecogn ized section and content) DATE CREATED AUTHOR 10/21/2017 [facility] DATE CREATED AUTHOR AUTHOR'S ORGANIZ ATION 10/06/2021 [facility] dical Specialist DATE CREATED AUTHOR AUTHOR'S ORGANIZ ATION 09/13/2022 [facility] [place] [facility] pital DATE CREATED AUTHOR AUTHOR'S ORGANIZ ATION 11/02/2022 [facility] DATE CREATED AUTHOR AUTHOR'S ORGANIZ ATION 12/24/2022 [facility] DATE CREATED AUTHOR AUTHOR'S ORGANIZ ATION 12/29/2022 [facility] DATE CREATED AUTHOR AUTHOR'S ORGANIZ ATION 12/30/2022 [employer] DATE CREATED AUTHOR AUTHOR'S ORGANIZ ATION 05/09/2023 [facility] DATE CREATED AUTHOR AUTHOR'S ORGANIZ ATION 08/13/2023 [facility] DATE CREATED AUTHOR AUTHOR'S ORGANIZ ATION 09/09/2023 [facility] DATE CREATED AUTHOR AUTHOR'S ORGANIZ ATION 09/10/2023 [facility] DATE CREATED AUTHOR AUTHOR'S ORGANIZ ATION 10/15/2023 [facility] dical Specialists EPIC REASON FOR VISIT (unrecogniz ed section and content) Reason Comments Follow-up 4m Specialty Diagnoses / Procedures Referred By Jack lorenzo Referred To Contact Cardiology Diagnoses Nonrheumatic aortic valve stenosis Pulmonary hypertension (CMS/HCC) Procedures Transthoracic Echo (TTE) Complete MI ECHO TRANSTHORC R-T 2D W/WO M-MODE REC F-UP/LMTD MI DOP ECHOCARD COLOR FLOW VELOCITY MAPPING MI DOP ECHOCARD PULSE WAVE W/SPECTRAL F-UP/LMTD STD Annika Kaba K, PUFFER TENDER-GUEST RELATIONS ASSOCIATE 703 [facility] 2, [facility] [address] [place] [address] Referral ID Status Reason Start Date Expiration Date Visits Requested Visits Authorized [id number] Pending Review Perform Procedure 3 03/29/2024 1 1 Reason Comments Care Coordination Transitional Care Management Reason Comments Post-op Follow-up Specialty Diagnoses / Procedures Referred By Jack lorenzo Referred To Contact Radiology Diagnoses Closed displaced intertrochanteric fracture of right femur, initial encounter ([facility]) Procedures XR HIP RIGHT W/ PELVIS MIN 2-3 VIEWS Kayden Lee PA-[place] [address] [facility] [address] [facility] [place] [place] [address] Referral ID Status Reason Start Date Expiration Date Visits Re quested Visits Authorized [id number] Closed 06/07/2023 06/06/2024 1 1 Reason Comments Follow-up 2 months Specialty Diagnoses / Procedures Referred By Contac t Referred To Contact Cardiology Diagnoses Paroxysmal atrial fibrillation (CMS/HCC) Procedures Follow Up In Cardiology Annika Kaba, JERMAINE-GUEST RELATIONS ASSOCIATE 703 [facility] 2, [facility] [address] [place] [address] Referral ID Status Reason Start Date Expiration Date V isits Requested Visits Authorized [id number] Authorized 03/30/2023 03/29/2024 1 1 Reason Comments Joint Pain Specialty Diagnoses / Procedures Referred By Contac t Referred To Contact Radiology Diagnoses Closed displaced intertrochanteric fracture of right femur, initial encounter ([facility]) Procedures XR FEMUR RIGHT MINIMUM 2 VIEWS Kayden Lee PA-C [address] [place] [address] [facility] [address] [place] [address] Referral ID Status Reason Start Date Expiration Date Visits Re quested Visits Authorized [id number] Closed 09/06/2023 09/05/2024 1 1 Reason Comments Care Coordination Transitional Care Management Hospital follow-up Care Team (unrecognized sect ion and content) Team Status: Active Member Role Status Dates Barry Barber II MD Primary Care Provider Active Team Status: Inactive Member Role Status Dates Barry Barber II MD Primary Care Provider Active Venkatesh Trammell , DO Emergency Provider Active Gina Poole DO Admit Provider, Attending Provider Active Hilary Antunez RN Other Provider Active Melody Canela DO Other Provider Active Colin Carrillo MD Other Provider Active Jose Arriaga MD Other Provider Active Jeffry Hardy MD Other Provider Active Farhat Saleem MD Other Provider Active Annika Kaba APRN Other Provider Active Kellie Okeefe MD Other Provider Active Jack Cooley MD Other Provider Active Daniella Estrada MD Other Provider Active Sonia Urena [facility] Other Provider Active Tatiana Shafer MD Other Provider Active Team Status: Active Member Role Status Dates Barry Barber II MD Primary Care Provider Active Venkatesh Trammell , Emergency Provider Active Gina Poole DO Admit Provider, Attending Provider Active Environmental Science Program Director Relationship Specialty Start Date End Date Barry Barber MD [address] [place] [address] PCP - General 12/28/22 Barry Barber MD [address] [place] [address] 12/28/22 Environmental Science Program Director Relationship Specialty Start Date End Date Barry Barber MD [address] [place] [address] PCP - General 12/28/22 Barry Barber MD [address] [place] [address] 12/28/22 Environmental Science Program Director Relationship Specialty Start Date End Date Barry Barber MD [address] [place] [address] PCP - General 12/28/22 Barry Barber MD [address] [place] [address] 12/28/22 Environmental Science Program Director Relationship Specialty Start Date End Date Barry Barber MD [address] [place] [address] PCP - ACO Reach 09/24/22 Barry Barber MD [address] [place] [address] PCP - General Internal Medicine 10/22/22Wednesday, NIKHIL Jeff [address] [place] [address] Licensed Practical Nurse Family Medicine 12/29/22 Becca Campos, BALLET SOLOIST Records Management Assistant Family Medicine 12/29/22 Environmental Science Program Director Relationship Specialty Start Date End Date Barry Barber MD [address] [place] [address] PCP - General 12/28/22 Barry Barber MD [address] [place] [address] 12/28/22 Environmental Science Program Director Relationship Specialty Start Date End Date Colt Live DO [address] [place] [address] [place] [address] Physician Orthopaedic Surgery 07/03/23 Environmental Science Program Director Relationship Specialty Start Date End Date Colt Live DO [address] [place] [address] [place] [address] Physician Orthopaedic Surgery 07/03/23 Environmental Science Program Director Relationship Specialty Start Date End Date Colt Live DO [address] [place] [address] [place] [address] Physician Orthopaedic Surgery 07/03/23 Meng Leos DMD, MD [address] [place] [address] Physician Oral & Maxillofacial Surgery 09/04/23 Environmental Science Program Director Relationship Specialty Start Date End Date Colt Live DO [address] [facility] [place] [address] Physician Orthopaedic Surgery 07/03/23 Meng Leos DMD, MD [address] [place] [address] Physician Oral & Maxillofacial Surgery 09/04/23 Environmental Science Program Director Relationship Specialty Start Date End Date Colt Live DO [address] [place] [address] Physician Orthopaedic Surgery 07/03/23 Meng Leos DMD, MD [address] [place], [place] [id number] Physician Oral & Maxillofacial Surgery 09/04/23 Goals [...] BE BASED ON THE PRIMARY CLINICAL RECORDS. [facility] [employer] [facility]. provides no warranty or guarantee of the accuracy or completeness of information in this document.
[2023-10-26] VITALS (29 sets, daily range): BP systolic 100–145; BP diastolic 63–83; PULSE 64–87; TEMP 36.4–36.7; O2SAT 90–99
[2023-10-26 00:28] LABS: Glucometer 166 mg/dL (74-106)
[2023-10-26] MEDS: FUROSEMIDE 20 MG/2 ML VIAL IVP (02:34)
--- NOTE | 2023-10-26 04:23 | PC.NURSE ---
Pt cleaned up for small liquid stool. Purwick replaced.
[2023-10-26] MEDS: CALCIUM CARBONATE 500 MG (200MG ELEMENTAL) TAB CHEW PO (05:02)
[2023-10-26] MEDS: BUMETANIDE 1 MG/4 ML VIAL IVP (05:02)
[2023-10-26] MEDS: ALBUTEROL SULFATE 2.5 MG/3 ML VIAL NEB IH ×2 (05:06→10:31)
[2023-10-26 06:19] LABS: Basophils Percent Auto 0.2 % (0.2-2.0); Hematocrit 28.8 % (36.0-48.0); Hemoglobin 9.2 g/dL (12.0-16.0); Immature Granulocytes Abs Auto 0.06 10^3/uL (0.00-0.03); Lymphocytes Absolute Auto 0.7 10^3/uL (1.2-3.8); Lymphocytes Percent Auto 11.5 % (20.5-60.0); Mean Corpuscular HGB Conc 31.9 g/dL (29.9-35.2); Mean Corpuscular Hemoglobin 29.4 pg (26.7-34.0); Mean Platelet Volume 9.5 fL (9.5-13.5); Monocytes Absolute Auto 0.1 10^3/uL (0.3-0.8); Monocytes Percent Auto 2.4 % (1.7-12.0); Neutrophils Percent Auto 84.9 % (43.0-75.0); PCO2 VBG 49.8 mmHg (40.0-52.0); Platelet Count 191 10^3/uL (150-450); Red Blood Count 3.13 10^6/uL (4.20-5.40); Red Cell Distribution Width 18.8 % (11.0-15.0); White Blood Count 5.9 10^3/uL (4.0-11.0)
[2023-10-26 06:28] LABS: Anion Gap 17.3; BUN Creatinine Ratio 22.4; Carbon Dioxide 29.2 mmol/L (21.0-32.0); Chloride 95 mmol/L (98-107); Estimated GFR (African America 27 (>=60); Estimated GFR (Non-African Ame 23 (>=60); Glucose 147 mg/dL (74-106); Magnesium 1.6 mg/dL (1.8-2.4); Potassium 3.5 mmol/L (3.5-5.1); Sodium 138 mmol/L (136-145)
[2023-10-26 06:30] LABS: Calcium <5.0 mg/dL (8.5-10.1)
[2023-10-26 07:00] LABS: Thyroid Stimulating Hormone 0.464 uIU/mL (0.358-3.740)
--- NOTE | 2023-10-26 07:00 | CA_ITS ---
Patient Name: MARTIN HAGEN MR#: [id number] : 1950 Exam Date: 10/26/2023 Ordering Doctor: LAMONT DRAKE ECHOCARDIOGRAM REPORT PROCEDURE: CA ECHO DOPPLER COMPLETE INDICATIONS: Acute CHF exacerbation COMPARISON: None. DESCRIPTION: COMPLETE ECHOCARDIOGRAM Real-time transthoracic echocardiography with 2D, M-mode, spectral and color flow Doppler performed. QUALITY: Technical quality was good. LEFT VENTRICLE: Normal chamber size. Mild concentric left ventricular hypertrophy. Hyperdynamic systolic function. LV EF: Estimated left ventricular ejection fraction is hyperdynamic at 75%. DIASTOLIC: Grade 2 diastolic dysfunction. ATRIAL SEPTUM: LEFT ATRIUM: Severe dilatation. RIGHT ATRIUM: Moderate dilatation. RIGHT VENTRICLE: Normal chamber size. Normal right ventricular systolic function. TRICUSPID VALVE: Thickened with normal mobility. No stenosis with moderate regurgitation. Severe pulmonary hypertension. RVSP 95 mmHg MITRAL VALVE: Moderately thickened with decreased mobility. Mild mitral valve stenosis. Moderate mitral annular calcification. Mild mitral regurgitation. MVA 2.6 cm2, Mean gradient 5 mmHg, PHT 76 ms. AORTIC VALVE: Normal trileaflet appearance. Severely calcified aortic valve. Severely diminished mobility. Doppler velocity suggest moderate to severe aortic valve stenosis. DVI 0.32, JUDITH 0.9 cm2, Vmax 3.5 m/s, Mean gradient 24mmHg. No aortic regurgitation. AORTIC ROOT: Normal diameter and appearance. PULMONIC VALVE: Normal thickness and mobility. No stenosis. Trivial regurgitation. PERICARDIUM: No evidence of pericardial effusion. IVC: Mild dilatation. Measuring 2.2 cm with no collapse. PLEURA: CONCLUSION: 1. Mild concentric left ventricular hypertrophy with hyperdynamic systolic function. LVEF is 75%. 2. Grade 2 diastolic dysfunction. 3. Normal right ventricular size and systolic function. 4. Moderate to severe biatrial dilatation. 5. Moderate-severe aortic valve stenosis. 6. Mild mitral valve stenosis and regurgitation. 7. Severely elevated right-sided pressures. RVSP is 95 mmHg. Adult Echocardiography Procedure Report Left Ventricle LVEDD (3.7 - 5.6 cm): 4.14 cm LVESD (2.2 - 4.0 cm): 2.48 cm LVIVS thickness (0.6 - 1.2 cm): 1.20 cm LVPW thickness (0.5 - 1.0 cm): 1.32 cm e': 0.08 m/s E - e': 19.86 LVOT Max Gradient: 4.95 mm[Hg] LVOT Area (cm2): 1.11 m/s Peak Velocity (LVOT): 1.11 m/s Mean Velocity (LVOT): 0.72 m/s LVOT Diameter 1.9 cm Left Ventricular Ejection Fraction: 75 % Left Atrium LA Volume Index (2D A2C): 69.71 ml/m2 Left Atrium Systolic Dimension: 4.82 cm Mitral Valve MV E to A Ratio: 1.23 Mitral Valve A-Wave Peak Velocity: 1.27 m/s Mitral Valve E-Wave Peak Velocity: 1.56 m/s Right Ventricle RV Internal Diastolic Dimension: 3.52 cm Aorta AO Root Diam: 2.43 cm Ascending Ao Diam: 2.11 cm Aortic Valve AoV Area (Peak Vu): 0.70 cm2, 0.73 cm2, 0.69 cm2, 0.69 cm2 AoV Area (VTI): 0.81 cm2, 0.81 cm2 Peak Velocity(Antegrade Flow): 3.18 m/s, 3.45 m/s, 3.36 m/s Peak Gradient(Antegrade Flow): 40.36 mm[Hg], 47.57 mm[Hg], 45.23 mm[Hg] Mean Velocity(Antegrade Flow): 2.28 m/s, 2.19 m/s Mean Gradient(Antegrade Flow): 23.16 mm[Hg], 23.55 mm[Hg] Velocity Time Integral: 83.14 cm, 83.91 cm Tricuspid Valve Peak Velocity (Regurgitant Flow): 4.10 m/s, 4.46 m/s, 4.25 m/s Pulmonic Valve Mean Gradient: 3.05 mm[Hg] Mean Velocity: 0.85 m/s Peak Velocity: 1.07 m/s, 1.16 m/s Peak Gradient: 5.37 mm[Hg], 4.61 mm[Hg] Right Atrium Right Atrium Systolic Pressure: 49.81 ml, 49.81 ml Dictated by: Logan Grady M.D. on 10/26/2023 at 17:35 Approved by: Logan Grady M.D. on 10/26/2023 at 17:45
--- NOTE | 2023-10-26 07:50 | CM.NOTE ---
Rounds made with Dr. Uriarte. Dr. Uriarte discusses plan of care--Hold Eliquis, continue IV antibiotics and HHN. Consult Cardiology and obtain an Echo. Kate verbalizes understanding.
[2023-10-26] MEDS: ONDANSETRON PF 4 MG/2 ML VIAL IV ×2 (08:12→15:59)
[2023-10-26] MEDS: INSULIN ASPART 300 UNIT/3 ML PEN SUBQ ×2 (08:20→21:09)
[2023-10-26] MEDS: METHYLPREDNISOLONE SOD SUCC PF 40 MG/ML VIAL 60 MG IVP ×3 (08:21→21:08)
[2023-10-26] MEDS: MAGNESIUM OXIDE 400 MG TABLET PO ×3 (08:37→21:09)
[2023-10-26] MEDS: METOPROLOL TARTRATE 50 MG TABLET PO ×2 (08:37→21:09)
[2023-10-26] MEDS: FERROUS SULFATE 325 MG TABLET PO ×2 (08:37→21:09)
[2023-10-26] MEDS: L. ACIDOPHILUS/L.BULGARICUS 1 PACKET GRAN.PACK PO ×2 (08:37→21:08)
[2023-10-26] MEDS: LEVETIRACETAM 250 MG TABLET PO ×2 (08:37→21:09)
[2023-10-26] MEDS: FLUOXETINE HCL 20 MG CAPSULE 40 MG PO (08:37)
[2023-10-26] MEDS: LISINOPRIL 20 MG TABLET PO (08:37)
[2023-10-26] MEDS: POTASSIUM CHLORIDE 10 MEQ ER TABLET 20 MEQ PO (08:37)
[2023-10-26] MEDS: ATORVASTATIN CALCIUM 20 MG TABLET PO (08:37)
[2023-10-26] MEDS: HYDROCODONE/ACET 5-325 MG TABLET 1 TAB PO ×2 (08:38→17:38)
[2023-10-26] MEDS: PANTOPRAZOLE SODIUM 40 MG VIAL IV (08:44)
--- NOTE | 2023-10-26 09:49 | P.HP_ITS ---
HPI H&P: HPI History of Present Illness Chief complaint: Shortness of Breath, COPD, CHF, ANEMIA, CKD Narrative: Patient was seen and evaluated in the emergency room with increasing shortness of breath. Found to have a acute left lower lobe pneumonia with acute exacerbation of COPD. When I saw the patient up on the medical surgical floor, she was resting comfortably in bed. She does have some mild conversational dyspnea. She has had increasing cough and sputum production over the last several days. She been sick for over a week. Progressively got worse over the last several days. She does wear chronic 3 L of nasal cannula O2 secondary to COPD. He is admitted for acute exacerbation of COPD secondary to left lower lobe pneumonia. Opioid HPI Opioid Management Most Recent Pain and Opioid Data: Last Pain Scale 5 10/26/23 08:38 Last Pain Intensity 4 05/12/23 08:07 Last Pain Assessment 10/26/23 07:00 Last MAR Pain Assessment 10/26/23 08:38 Last ORT Total Score 0 10/25/23 23:44 Last ORT Risk Category Low Risk 10/25/23 23:44 Review of Systems ROS Status of ROS 10 or more systems reviewed and unremark able except as noted in history and below Constitutional Denies: fever or chills PFSH PFSH Medical History (Updated 10/26/23 @ 10:51 by Angel Luis Uriarte MD) Hyponatremia ?E87.1 - Hypo-osmolality and hyponatremia (ICD-10) Acute hypokalemia ?E87.6 - Hypokalemia (ICD-10) Closed fracture of right hip ?S72.001A - Fracture of unspecified part of neck of right femur, initial encounter for closed fracture (ICD-10) Fall ?W19.XXXA - Unspecified fall, initial encounter (ICD-10) Closed fracture of left condylar process of mandible ?S02.612A - Fracture of condylar process of left mandible, initial encounter for closed fracture (ICD-10) UTI (urinary tract infection) ?N39.0 - Urinary tract infection, site not specified (ICD-10) Hypocalcemia ?E83.51 - Hypocalcemia (ICD-10) CKD (chronic kidney disease) stage 4, GFR 15-29 ml/min ?N18.4 - Chronic kidney disease, stage 4 (severe) (ICD-10) Chronic anemia ?D64.9 - Anemia, unspecified (ICD-10) Hemorrhoids ?K64.9 - Unspecified hemorrhoids (ICD-10) Diarrhea in adult patient ?R19.7 - Diarrhea, unspecified (ICD-10) New onset seizure without head trauma ?R56.9 - Unspecified convulsions (ICD-10) Acute kidney injury superimposed on CKD ?N17.9 - Acute kidney failure, unspecified (ICD-10) ?N18.9 - Chronic kidney disease, unspecified (ICD-10) Hypokalemia ?E87.6 - Hypokalemia (ICD-10) Hypomagnesemia ?E83.42 - Hypomagnesemia (ICD-10) Generalized seizure ?R56.9 - Unspecified convulsions (ICD-10) Acute otitis externa of left ear ?H60.502 - Unspecified acute noninfective otitis externa, left ear (ICD-10) UTI (urinary tract infection) due to Enterococcus ?N39.0 - Urinary tract infection, site not specified (ICD-10) ?B95.2 - Enterococcus as the cause of diseases classified elsewhere (ICD-10) Adrenal adenoma ?D35.00 - Benign neoplasm of unspecified adrenal gland (ICD-10) (HFpEF) heart failure with preserved ejection fraction ?I50.30 - Unspecified diastolic (congestive) heart failure (ICD-10) Chronic respiratory failure with hypoxia ?J96.11 - Chronic respiratory failure with hypoxia (ICD-10) Anemia due to chronic kidney disease ?N18.9 - Chronic kidney disease, unspecified (ICD-10) ?D63.1 - Anemia in chronic kidney disease (ICD-10) Heart murmur ?R01.1 - Cardiac murmur, unspecified (ICD-10) UTI due to Klebsiella species ?N39.0 - Urinary tract infection, site not specified (ICD-10) ?B96.89 - Other specified bacterial agents as the cause of diseases classified elsewhere (ICD-10) C. difficile diarrhea ?A04.72 - Enterocolitis due to Clostridium difficile, not specified as recurrent (ICD-10) Obesity ?E66.9 - Obesity, unspecified (ICD-10) Depression ?F32.A - Depression, unspecified (ICD-10) Hypertension ?I10 - Essential (primary) hypertension (ICD-10) Atrial fibrillation ?I48.91 - Unspecified atrial fibrillation (ICD-10) CKD (chronic kidney disease) stage 3, GFR 30-59 ml/min ?N18.30 - Chronic kidney disease, stage 3 unspecified (ICD-10) Reducible umbilical hernia ?K42.9 - Umbilical hernia without obstruction or gangrene (ICD-10) Hernia of anterior abdominal wall ?K43.9 - Ventral hernia without obstruction or gangrene (ICD-10) Diabetes ?E11.9 - Type 2 diabetes mellitus without complications (ICD-10) Anemia ?D64.9 - Anemia, unspecified (ICD-10) Hypocalcemia ?E83.51 - Hypocalcemia (ICD-10) CHF (congestive heart failure) ?I50.9 - Heart failure, unspecified (ICD-10) Edema ?R60.9 - Edema, unspecified (ICD-10) CHF (congestive heart failure) ?I50.9 - Heart failure, unspecified (ICD-10) COPD (chronic obstructive pulmonary disease) ?J44.9 - Chronic obstructive pulmonary disease, unspecified (ICD-10) Surgical History History of cholecystectomy ?Z90.49 - Acquired absence of other specified parts of digestive tract (ICD- 10) H/O: hysterectomy ?Z90.710 - Acquired absence of both cervix and uterus (ICD-10) Family History (Updated 10/09/22 @ 00:43 by Jennifer Trejo) Family/Other Family history of CHF (congestive heart failure) Family history of COPD (chronic obstructive pulmonary disease) Family history of hypertension Social History (Updated 10/25/23 @ 23:37 by Bella Shepard RN) Within the past year, how often did you have a drink containing alcohol: never Within the past year, how often did you have six or more drinks on one occasion: never Score interpretation: A score less than 3 is consistent with normal alcohol consumption. Smoking status: Current every day smoker Second hand tobacco smoke exposure: No Non-prescribed substance use: denies use Previous occupational history: retired Known occupational exposures/hazards: Yes Highest level of school completed/degree received: some college, no degree Are you now , , , , never or living with a partner: In a typical week, how many times do you talk on the telephone with family, friends, or neighbors: 3 or more times per week How often do you get together with friends or relatives: 3 or more times per week How often do you attend worship or adventism services: 1-3 times per year Do you belong to any clubs or organizations such as worship groups unions, fraternal or athletic groups, or school groups: no Total score: 1 Score interpretation: A score of less than or equal to 1 indicates the most socially isolated. Little interest or pleasure in doing things: not at all Feeling down, depressed, or hopeless: not at all Feel stressed/tense/nervous/anxious/difficulty sleeping: not at all Due to disability, difficulty making decisions: No Do you think of yourself as: straight/heterosexual Gender Identity: female Meds Home Medications and Allergies Home Medications ?Medication ?Instructions ?Recorded ?Confirmed ?Type albuterol sulfate 90 mcg/actuation 2 puff inhalation Q4H PRN 10/08/22 10/25/23 History aerosol inhaler (Ventolin HFA) shortness of breath or wheezing alprazolam 1 mg tablet 1 mg PO TID PRN anxiety 10/08/22 10/25/23 History apixaban 5 mg tablet (Eliquis) 5 mg PO BID 10/08/22 10/25/23 History brexpiprazole 1 mg tablet (Rexulti) 1 mg PO QDAY 10/08/22 10/25/23 History cyclobenzaprine 10 mg tablet 10 mg PO .qhs PRN muscle spasm 10/08/22 10/25/23 History dulaglutide 0.75 mg/0.5 mL 0.75 mg subcut QWEEK high blood 10/08/22 10/25/23 History subcutaneous pen injector sugar (Trulicity) fluoxetine 40 mg capsule 40 mg PO DAILY 10/08/22 10/25/23 History magnesium oxide 400 mg (241.3 mg 400 mg PO BID 10/08/22 10/25/23 History magnesium) tablet metoprolol tartrate 50 mg tablet 50 mg PO BID 10/08/22 10/25/23 History omeprazole 40 mg capsule,delayed 40 mg PO BID 10/08/22 10/25/23 History release tizanidine 4 mg tablet 4 mg PO TID PRN muscle spasticity 10/08/22 10/25/23 History atorvastatin 20 mg tablet (Lipitor) 20 mg PO DAILY 03/09/23 10/25/23 History bumetanide 2 mg tablet 2 mg PO DAILY 03/09/23 10/25/23 History dapagliflozin propanediol 10 mg 10 mg PO DAILY 03/09/23 10/25/23 History tablet (Farxiga) estradiol 0.01% (0.1 mg/gram) 0.25 appful vaginal .2x a week 03/09/23 10/25/23 History vaginal cream (Estrace) fluticasone 250 mcg-salmeterol 50 1 inh inhalation BID 03/09/23 10/25/23 History mcg/dose blistr powdr for inhalation (Advair Diskus) lisinopril 20 mg tablet 20 mg PO DAILY 03/09/23 10/25/23 History metolazone 2.5 mg tablet 2.5 mg PO DAILY 03/09/23 10/25/23 History promethazine 25 mg tablet 25 mg PO Q6H PRN nausea and 03/09/23 10/25/23 History vomiting yuhzlsoq-[id number]-accskqyfs 3.5 3 drp otic (ear) Q4H PRN ear pain 03/21/23 10/25/23 History mg-10,000 unit/mL-1 % ear drops,susp calcium carbonate 500 mg (2.5 x 200 mg calcium (500 03/24/23 10/25/23 Rx mg)) PO TID #90 tabs levetiracetam 500 mg tablet 250 mg PO BID 05/11/23 10/25/23 History (Keppra) hydrocodone 5 mg-acetaminophen 325 1 tab PO Q8H PRN pain 10/25/23 10/25/23 History mg tablet pantoprazole 20 mg tablet,delayed 20 mg PO Q12H 10/25/23 10/25/23 History release potassium chloride 20 mEq 20 meq PO DAILY 10/25/23 10/25/23 History tablet,extended release Allergies Allergy/AdvReac Type Severity Reaction Status Date / Time No Known Drug Allergies Allergy Verified 03/21/23 19:07 Exam Constitutional Vital Signs, click to edit/add: Last Vital Signs Temp 98.0 F 10/26/23 08:27 Pulse 71 10/26/23 08:27 Resp 18 10/26/23 08:27 BP 120/67 10/26/23 08:27 Pulse Ox 95 10/26/23 08:27 O2 Del Method Nasal Cannula 10/26/23 08:27 O2 Flow Rate 3 10/26/23 08:27 Documenting provider has reviewed patient's vital signs: yes Common normals: apparent distress (Mild conversational dyspnea) Respiratory Common normals: normal respiratory effort and no retractions Cardio Common normals: regular rate Rhythm: abnormal rhythm GI Common normals: Normal to inspection, nondistended, normoactive bowel sounds present, soft to palpation, non-tender, no hepatosplenomegaly and no masses Extremity Common normals: abnormal to inspection and clubbing, cyanosis or edema General: edema (1+) Results Labs Labs: Short CBC 10/25/23 10/26/23 Range/Units 20:42 06:11 WBC 10.7 5.9 (4.0-11.0) 10^3/uL Hgb 7.4 L 9.2 L (12.0-16.0) g/dL Hct 23.2 L* 28.8 L (36.0-48.0) % Plt Count 281 191 (150-450) 10^3/uL BMP 10/25/23 10/26/23 21:13 06:11 Sodium 136 138 Potassium 3.6 3.5 Chloride 95 L 95 L Carbon Dioxide 31.7 29.2 BUN 48.0 H 48.0 H Creatinine 2.23 H 2.14 H Glucose 120 H 147 H Calcium <5.0 L* <5.0 L* Liver Function 10/25/23 Range/Units 21:13 Total Bilirubin 0.4 (0.2-1.0) mg/dL AST 20 (15-37) U/L ALT 16 (14-59) U/L Alkaline Phosphatase 88 (46-116) U/L Albumin 2.3 L (3.4-5.0) g/dL ABG ABG results: 10/25/23 10/26/23 22:15 06:11 ABG pH 7.287 L* ABG pCO2 65.9 H* ABG pO2 62.4 L ABG HCO3 31.5 H ABG O2 Saturation 91.0 ABG Base Excess 4.8 H VBG pH 7.380 VBG pCO2 49.8 Assessment and Plan Assessment and Plan (1) COPD exacerbation: (2) Anemia: (3) Shortness of breath: (4) Left lower lobe pneumonia: Plan Admission findings: Mild respiratory distress with mild conversational dyspnea, normal white blood cell count but left shift consistent with bacterial process, respiratory acidosis with elevated pCO2 and low pH, due to acute exacerbation of COPD due to left lower lobe pneumonia. Increase steroid dose, add antibiotics, adjust aerosol treatments. Try to obtain sputum culture. Acute blood loss anemia secondary to acute upper gastrointestinal bleeding resulting in acute upper gastrointestinal blood loss anemia-patient received 2 units of PRBCs. Add IV Protonix, occult blood is positive, consider endoscopy if continues to have bleeding episodes. Will hold Eliquis Hypocalcemia-discussed with pharmacy options for correction. She is low in the past. But not to this degree. Will take IV therapy. Calcium is not detectable Hypomagnesemia-supplement Elevated BNP-check on echocardiogram, with peripheral edema and her increasing shortness of breath will do 1 dose of Bumex. IV drip. Diarrhea-history of C. difficile-check stool studies History of recurrent UTIs-check urinalysis Severe protein calorie malnutrition-diet supplement Oxygen dependent COPD-plan as outlined above Generalized anxiety disorder-continue home medications Atrial fibrillation with controlled ventricular response-continue with home medications -holding Eliquis secondary to upper gastrointestinal blood loss anemia Hypertension-continue with home medications NIDDM-insulin sliding scale Admission status: Patient with a significant acute exacerbation of COPD secondary to progressive left lower lobe pneumonia complicated by acute upper gastrointestinal blood loss anemia due to acute upper gastrointestinal bleeding, medically necessary treatment will span [address] patient inpatient status.
--- NOTE | 2023-10-26 09:56 | SWNOTE1 ---
SW met with pt to discuss dc needs. Pt lives at home with 2 of her daughters and niece. Pt has a walker that she uses at home and wears 3 liters of home oxygen continuous. Pt voiced she has a HH nurse coming in 1x a week thru [facility]. Pt does not have any concerns about discharge at this time. SW to check therapy notes later today to see if PT/OT needs added on to HH. Important Message from [employer] reviewed and discussed with patient. Pt. verbalized understanding and signed the form. Original given to patient and copy placed in patient?s chart.
[2023-10-26] MEDS: BUDESONIDE 0.5 MG/2 ML AMPULE NEB IH ×2 (10:31→22:12)
[2023-10-26] MEDS: ALPRAZOLAM 1 MG TABLET PO ×2 (10:33→17:38)
[2023-10-26] MEDS: LEVOFLOXACIN IN DEXTROSE 5 % 750 MG/150 ML IV.SOLN 100 MG IV (10:33)
[2023-10-26] MEDS: HYOSCYAMINE SULFATE 0.125 MG TAB.SUBL SL ×2 (10:33→15:59)
[2023-10-26 11:12] LABS: Glucometer 132 mg/dL (74-106)
[2023-10-26 11:23] LABS: Phosphorus 5.7 mg/dL (2.6-4.7)
[2023-10-26] MEDS: BUMETANIDE 10 MG in 0.9 % SODIUM CHLORIDE 160 ML 20 MG IV (12:22)
[2023-10-26] MEDS: CALCIUM GLUCONATE 2,000 MG in 0.9 % SODIUM CHLORIDE 100 ML 120 MG IV (12:22)
[2023-10-26] MEDS: PIPERACILLIN SODIUM/TAZOBACTAM 3.375 GM in 0.9 % SODIUM CHLORIDE 50 ML IV ×2 (13:32→23:09)
[2023-10-26] MEDS: CALCIUM CARBONATE 500 MG (200MG ELEMENTAL) TAB CHEW 1000 MG PO ×2 (15:57→21:08)
[2023-10-26 16:27] LABS: Bilirubin Urine NEGATIVE (NEGATIVE); Blood Urine NEGATIVE (NEGATIVE); Clarity Urine CLOUDY (CLEAR); Color Urine LT. YELLOW (YELLOW); Glucose Urine UA NEGATIVE (NEGATIVE); Ketones Urine NEGATIVE (NEGATIVE); Leukocyte Esterase Urine MODERATE (NEGATIVE); Nitrite Urine NEGATIVE (NEGATIVE); Protein Urine 30 mg/dL (NEG/TRACE); Specific Gravity Urine 1.015 (1.005-1.025); Urobilinogen Urine 0.2 EU/dL (0.2-1.0); pH Urine 7.5 (5.0-9.0)
[2023-10-26 16:33] LABS: Glucometer 118 mg/dL (74-106)
[2023-10-26 16:34] LABS: Bacteria Urine LARGE #/HPF (NONE SEEN); Cast Seen? NONE SEEN #/LPF (NONE SEEN); Crystals Seen? None Seen #/HPF (None Seen); Mucus Urine NONE SEEN (NONE SEEN); RBC Urine 0-2 #/HPF (0-2); Squamous Epithelial Cell Urine FEW #/LPF (NONE/RARE); WBC Urine 50-75 #/HPF (NONE SEEN)
[2023-10-26] MEDS: NYSTATIN 15 GM POWDER 1 APPLIC TOPICAL (17:38)
--- NOTE | 2023-10-26 19:26 | P.CACN_ITS ---
<Statement entered by NOELLE GRADY - 10/28/23 17:31> This documentation has been reviewed and approved. History of Present Illness History of Present Illness Consult date: 10/26/23 Requesting physician: Angel Luis Uriarte Chief complaint: Shortness of Breath, COPD, CHF, ANEMIA, CKD Narrative: Patient is a 72 y/o F with PMHx of HFpEF, COPD, current smoker, paroxysmal a.fib, DM, CKD, pulmonary HTN, aortic stenosis who presented to the ER with c/o worsening SOB. She was found to have [place]ation[place] [address]. Cardiology was consulted to assist with diuresis management. She is currently on a bumex gtt, 1mg/hr. Eliquis is on hold due to anemia and positive stool guiac. She had an ECHO today which showed hyperdynamic EF, moderate to severe and RVSP at 95. Patient seen and examined at bedside this evening. She states her breathing is doing better and she is feeling better overall. Denies CP, dyspnea, orthopnea, PND, LE edema, dizziness/LH, palpitations. Review of Systems ROS Status of ROS 10 or more systems reviewed and unremark able except as noted in history and below Cardiovascular Reports: shortness of breath with exertion Respiratory Reports: shortness of breath [facility] Medical History (Updated 10/26/23 @ 10:51 by Angel Luis Uriarte MD) Hyponatremia ?E87.1 - Hypo-osmolality and hyponatremia (ICD-10) Acute hypokalemia ?E87.6 - Hypokalemia (ICD-10) Closed fracture of right hip ?S72.001A - Fracture of unspecified part of neck of right femur, initial encounter for closed fracture (ICD-10) Fall ?W19.XXXA - Unspecified fall, initial encounter (ICD-10) Closed fracture of left condylar process of mandible ?S02.612A - Fracture of condylar process of left mandible, initial encounter for closed fracture (ICD-10) UTI (urinary tract infection) ?N39.0 - Urinary tract infection, site not specified (ICD-10) Hypocalcemia ?E83.51 - Hypocalcemia (ICD-10) CKD (chronic kidney disease) stage 4, GFR 15-29 ml/min ?N18.4 - Chronic kidney disease, stage 4 (severe) (ICD-10) Chronic anemia ?D64.9 - Anemia, unspecified (ICD-10) Hemorrhoids ?K64.9 - Unspecified hemorrhoids (ICD-10) Diarrhea in adult patient ?R19.7 - Diarrhea, unspecified (ICD-10) New onset seizure without head trauma ?R56.9 - Unspecified convulsions (ICD-10) Acute kidney injury superimposed on CKD ?N17.9 - Acute kidney failure, unspecified (ICD-10) ?N18.9 - Chronic kidney disease, unspecified (ICD-10) Hypokalemia ?E87.6 - Hypokalemia (ICD-10) Hypomagnesemia ?E83.42 - Hypomagnesemia (ICD-10) Generalized seizure ?R56.9 - Unspecified convulsions (ICD-10) Acute otitis externa of left ear ?H60.502 - Unspecified acute noninfective otitis externa, left ear (ICD-10) UTI (urinary tract infection) due to Enterococcus ?N39.0 - Urinary tract infection, site not specified (ICD-10) ?B95.2 - Enterococcus as the cause of diseases classified elsewhere (ICD-10) Adrenal adenoma ?D35.00 - Benign neoplasm of unspecified adrenal gland (ICD-10) (HFpEF) heart failure with preserved ejection fraction ?I50.30 - Unspecified diastolic (congestive) heart failure (ICD-10) Chronic respiratory failure with hypoxia ?J96.11 - Chronic respiratory failure with hypoxia (ICD-10) Anemia due to chronic kidney disease ?N18.9 - Chronic kidney disease, unspecified (ICD-10) ?D63.1 - Anemia in chronic kidney disease (ICD-10) Heart murmur ?R01.1 - Cardiac murmur, unspecified (ICD-10) UTI due to Klebsiella species ?N39.0 - Urinary tract infection, site not specified (ICD-10) ?B96.89 - Other specified bacterial agents as the cause of diseases classified elsewhere (ICD-10) C. difficile diarrhea ?A04.72 - Enterocolitis due to Clostridium difficile, not specified as recurrent (ICD-10) Obesity ?E66.9 - Obesity, unspecified (ICD-10) Depression ?F32.A - Depression, unspecified (ICD-10) Hypertension ?I10 - Essential (primary) hypertension (ICD-10) Atrial fibrillation ?I48.91 - Unspecified atrial fibrillation (ICD-10) CKD (chronic kidney disease) stage 3, GFR 30-59 ml/min ?N18.30 - Chronic kidney disease, stage 3 unspecified (ICD-10) Reducible umbilical hernia ?K42.9 - Umbilical hernia without obstruction or gangrene (ICD-10) Hernia of anterior abdominal wall ?K43.9 - Ventral hernia without obstruction or gangrene (ICD-10) Diabetes ?E11.9 - Type 2 diabetes mellitus without complications (ICD-10) Anemia ?D64.9 - Anemia, unspecified (ICD-10) Hypocalcemia ?E83.51 - Hypocalcemia (ICD-10) CHF (congestive heart failure) ?I50.9 - Heart failure, unspecified (ICD-10) Edema ?R60.9 - Edema, unspecified (ICD-10) CHF (congestive heart failure) ?I50.9 - Heart failure, unspecified (ICD-10) COPD (chronic obstructive pulmonary disease) ?J44.9 - Chronic obstructive pulmonary disease, unspecified (ICD-10) Surgical History History of cholecystectomy ?Z90.49 - Acquired absence of other specified parts of digestive tract (ICD- 10) H/O: hysterectomy ?Z90.710 - Acquired absence of both cervix and uterus (ICD-10) Family History (Updated 10/09/22 @ 00:43 by Jennifer Trjeo) Family/Other Family history of CHF (congestive heart failure) Family history of COPD (chronic obstructive pulmonary disease) Family history of hypertension Social History (Updated 10/25/23 @ 23:37 by Bella Shepard RN) Within the past year, how often did you have a drink containing alcohol: never Within the past year, how often did you have six or more drinks on one occasion: never Score interpretation: A score less than 3 is consistent with normal alcohol consumption. Smoking status: Current every day smoker Second hand tobacco smoke exposure: No Non-prescribed substance use: denies use Previous occupational history: retired Known occupational exposures/hazards: Yes Highest level of school completed/degree received: some college, no degree Are you now , , , , never or living with a partner: In a typical week, how many times do you talk on the telephone with family, friends, or neighbors: 3 or more times per week How often do you get together with friends or relatives: 3 or more times per week How often do you attend protestant or protestant services: 1-3 times per year Do you belong to any clubs or organizations such as protestant groups unions, fraternal or athletic groups, or school groups: no Total score: 1 Score interpretation: A score of less than or equal to 1 indicates the most socially isolated. Little interest or pleasure in doing things: not at all Feeling down, depressed, or hopeless: not at all Feel stressed/tense/nervous/anxious/difficulty sleeping: not at all Due to disability, difficulty making decisions: No Do you think of yourself as: straight/heterosexual Gender Identity: female Meds Home Medications and Allergies Home Medications ?Medication ?Instructions ?Recorded ?Confirmed ?Type albuterol sulfate 90 mcg/actuation 2 puff inhalation Q4H PRN 10/08/22 10/25/23 History aerosol inhaler (Ventolin HFA) shortness of breath or wheezing alprazolam 1 mg tablet 1 mg PO TID PRN anxiety 10/08/22 10/25/23 History apixaban 5 mg tablet (Eliquis) 5 mg PO BID 10/08/22 10/25/23 History brexpiprazole 1 mg tablet (Rexulti) 1 mg PO QDAY 10/08/22 10/25/23 History cyclobenzaprine 10 mg tablet 10 mg PO .qhs PRN muscle spasm 10/08/22 10/25/23 History dulaglutide 0.75 mg/0.5 mL 0.75 mg subcut QWEEK high blood 10/08/22 10/25/23 History subcutaneous pen injector sugar (Trulicity) fluoxetine 40 mg capsule 40 mg PO DAILY 10/08/22 10/25/23 History magnesium oxide 400 mg (241.3 mg 400 mg PO BID 10/08/22 10/25/23 History magnesium) tablet metoprolol tartrate 50 mg tablet 50 mg PO BID 10/08/22 10/25/23 History omeprazole 40 mg capsule,delayed 40 mg PO BID 10/08/22 10/25/23 History release tizanidine 4 mg tablet 4 mg PO TID PRN muscle spasticity 10/08/22 10/25/23 History atorvastatin 20 mg tablet (Lipitor) 20 mg PO DAILY 03/09/23 10/25/23 History bumetanide 2 mg tablet 2 mg PO DAILY 03/09/23 10/25/23 History dapagliflozin propanediol 10 mg 10 mg PO DAILY 03/09/23 10/25/23 History tablet (Farxiga) estradiol 0.01% (0.1 mg/gram) 0.25 appful vaginal .2x a week 03/09/23 10/25/23 History vaginal cream (Estrace) fluticasone 250 mcg-salmeterol 50 1 inh inhalation BID 03/09/23 10/25/23 History mcg/dose blistr powdr for inhalation (Advair Diskus) lisinopril 20 mg tablet 20 mg PO DAILY 03/09/23 10/25/23 History metolazone 2.5 mg tablet 2.5 mg PO DAILY 03/09/23 10/25/23 History promethazine 25 mg tablet 25 mg PO Q6H PRN nausea and 03/09/23 10/25/23 History vomiting lqluvglu-atyyixvhz-syslqrqdh 3.5 3 drp otic (ear) Q4H PRN ear pain 03/21/23 10/25/23 History mg-10,000 unit/mL-1 % ear drops,susp calcium carbonate 500 mg (2.5 x 200 mg calcium (500 03/24/23 10/25/23 Rx mg)) PO TID #90 tabs levetiracetam 500 mg tablet 250 mg PO BID 05/11/23 10/25/23 History (Keppra) hydrocodone 5 mg-acetaminophen 325 1 tab PO Q8H PRN pain 10/25/23 10/25/23 History mg tablet pantoprazole 20 mg tablet,delayed 20 mg PO Q12H 10/25/23 10/25/23 History release potassium chloride 20 mEq 20 meq PO DAILY 10/25/23 10/25/23 History tablet,extended release Allergies Allergy/AdvReac Type Severity Reaction Status Date / Time No Known Drug Allergies Allergy Verified 03/21/23 19:07 Exam Constitutional Vital Signs, click to edit/add: Last Vital Signs Temp 97.6 F 10/26/23 17:00 Pulse 76 10/26/23 17:57 Resp 18 10/26/23 17:00 BP 126/75 10/26/23 17:00 Pulse Ox 97 06/25/24 17:00 O2 Del Method Nasal Cannula 10/26/23 17:00 O2 Flow Rate 3 10/26/23 17:00 Common normals: oriented x3 and no limitations HENMT Common normals: normocephalic and head/scalp atraumatic Eye Common normals: EOMs intact bilaterally and conjunctivae normal Neck & C-Spine Common normals: supple General: JVD (elevated) Respiratory Common normals: no use of accessory muscles Auscultation: crackles Laterality: bilateral in the lower lung ramirez Cardio Peripheral pulses: pulses 2+ throughout GI Common normals: Normal to inspection, nondistended, normoactive bowel sounds present Extremity General: edema (+2 bilateral LE edema) Neuro Common normals: oriented x3 and moves all extremities Psych Common normals: cooperative and affect normal Results Labs and Meds Lab results: Cardiac Enzymes 10/25/23 Range/Units 21:13 AST 20 (15-37) U/L CBC 10/25/23 10/26/23 Range/Units 20:42 06:11 WBC 10.7 5.9 (4.0-11.0) 10^3/uL RBC 2.34 L 3.13 L (4.20-5.40) 10^6/uL Hgb 7.4 L 9.2 L (12.0-16.0) g/dL Hct 23.2 L* 28.8 L (36.0-48.0) % Plt Count 281 191 (150-450) 10^3/uL Neut # (Auto) 7.4 H 5.0 (1.4-6.5) 10^3/uL Lymph # (Auto) 2.3 0.7 L (1.2-3.8) 10^3/uL Stephens # (Auto) 0.6 0.1 L (0.3-0.8) 10^3/uL Eos # (Auto) 0.2 0.0 (0.0-0.7) 10^3/uL Baso # (Auto) 0.0 0.0 (0.0-0.1) 10^3/uL Comprehensive Metabolic Panel 10/25/23 10/26/23 Range/Units 21:13 06:11 Sodium 136 138 (136-145) mmol/L Potassium 3.6 3.5 (3.5-5.1) mmol/L Chloride 95 L 95 L (98-107) mmol/L Carbon Dioxide 31.7 29.2 (21.0-32.0) mmol/L BUN 48.0 H 48.0 H (7.0-18.0) mg/dL Creatinine 2.23 H 2.14 H (0.55-1.02) mg/dL Glucose 120 H 147 H (74-106) mg/dL Calcium <5.0 L* <5.0 L* (8.5-10.1) mg/dL AST 20 (15-37) U/L ALT 16 (14-59) U/L Alkaline Phosphatase 88 (46-116) U/L Total Protein 6.8 (6.4-8.2) g/dL Albumin 2.3 L (3.4-5.0) g/dL Intake and Output 10/26/23 10/26/23 10/26/23 07:59 15:59 23:59 Intake Total 700 / 750 270 / 320 50 / 320 Output Total 400 / 800 400 / 800 Balance 700 / 750 -130 / -480 -350 / -480 Intake: Blood Product 700 / 700 Leukocyte Reduced Rbc Unit 350 / 350 [id number] Red Cells Leured Cont.1 Unit 350 / 350 [id number] IV 270 / 320 50 / 320 Calcium Gluconate 2,000 mg In 0 120 / 120 .9 % Sodium Chloride 100 ml @ 120 mls/hr IV ONCE ONE Rx#: [id number] Levofloxacin in Dextrose 5 % 150 / 150 750 mg In 150 ml @ 100 mls/hr IV ONCE ONE Rx#:[id number] Piperacillin Sodium/Tazobactam 50 / 50 3.375 gm In 0.9 % Sodium Chloride 50 ml @ 12.5 mls/hr IV Q12H [facility] Rx#:[id number] Output: Urine 400 / 800 400 / 800 Other: # Unmeasured Voids 1 # Incontinent Voids 1 # Bowel Movements 1 Weight 64.9 kg Assessment and Plan Assessment and Plan (1) COPD exacerbation: (2) Anemia: (3) Shortness of breath: (4) Left lower lobe pneumonia: Plan #Acute on chronic HFpEF #Pulmonary HTN #SOB -She remains fluid overloaded on exam. -Continue bumex gtt until she is euvolemic or if renal function worsens. -Her RVSP was severely elevated at 95. Recommend repeating an ECHO in 2 days to see if any improvement. -Continue Farxiga 10mg daily. #Paroxysmal a.fib #Anemia -RRR on exam and tele review -Kathie currently on hold due to anemia and positive stool guaiac. If she were to undergo a EGD/colonoscopy, recommend waiting until she is euvolemic from a heart failure standpoint. -Consider patient for an LAAO device as an outpatient. -Continue metoprolol 50mg BID. #Aortic stenosis -Moderate to severe per ECHO today. -Recommend evaluation for possible TAVR as an outpatient. We will set her up for follow-up appt with Dr. Grady. Discussed above with Dr. Grady, he agrees with plan. Thank you for the consult. Please let us know if any further questions or concerns. Jessa Sanchez APRN-SHEETER WAXER OPERATOR
[2023-10-26 20:46] LABS: Glucometer 161 mg/dL (74-106)
[2023-10-26] MEDS: ENSURE CLEAR 237 ML LIQUID PO (21:08)
[2023-10-26] MEDS: IPRATROPIUM/ALBUTEROL SULFATE 3 ML AMPUL.NEB IH (22:12)
[2023-10-27] VITALS (20 sets, daily range): BP systolic 117–142; BP diastolic 67–89; PULSE 69–97; TEMP 36.3–36.9; O2SAT 93–98
[2023-10-27] MEDS: METHYLPREDNISOLONE SOD SUCC PF 40 MG/ML VIAL 60 MG IVP ×4 (03:50→21:56)
[2023-10-27 05:11] LABS: Hematocrit 27.8 % (36.0-48.0); Hemoglobin 8.7 g/dL (12.0-16.0); Immature Granulocytes Abs Auto 0.04 10^3/uL (0.00-0.03); Immature Granulocytes Pct Auto 0.8 % (0.0-0.5); Lymphocytes Absolute Auto 0.7 10^3/uL (1.2-3.8); Lymphocytes Percent Auto 12.5 % (20.5-60.0); Mean Corpuscular HGB Conc 31.3 g/dL (29.9-35.2); Mean Corpuscular Hemoglobin 29.4 pg (26.7-34.0); Mean Corpuscular Volume 93.9 fL (81.0-99.0); Mean Platelet Volume 9.7 fL (9.5-13.5); Monocytes Absolute Auto 0.3 10^3/uL (0.3-0.8); Monocytes Percent Auto 4.8 % (1.7-12.0); Neutrophils Absolute Auto 4.3 10^3/uL (1.4-6.5); Neutrophils Percent Auto 81.9 % (43.0-75.0); Platelet Count 212 10^3/uL (150-450); Red Blood Count 2.96 10^6/uL (4.20-5.40); Red Cell Distribution Width 18.7 % (11.0-15.0); White Blood Count 5.3 10^3/uL (4.0-11.0)
[2023-10-27] MEDS: CALCIUM CARBONATE 500 MG (200MG ELEMENTAL) TAB CHEW 1000 MG PO ×2 (05:23→21:43)
[2023-10-27] MEDS: MAGNESIUM OXIDE 400 MG TABLET PO ×3 (05:23→21:43)
[2023-10-27] MEDS: ALPRAZOLAM 1 MG TABLET PO ×2 (05:25→19:21)
[2023-10-27 05:47] LABS: Alanine Aminotransferase 17 U/L (14-59); Albumin Globulin Ratio 0.6; Albumin Level 2.2 g/dL (3.4-5.0); Alkaline Phosphatase 70 U/L (46-116); Anion Gap 12.1; Aspartate Amino Transferase 16 U/L (15-37); BUN Creatinine Ratio 20.9; Bilirubin Total 0.4 mg/dL (0.2-1.0); Carbon Dioxide 32.8 mmol/L (21.0-32.0); Chloride 97 mmol/L (98-107); Estimated GFR (African America 26 (>=60); Estimated GFR (Non-African Ame 21 (>=60); Globulin 3.9 g/dL; Glucose 175 mg/dL (74-106); Potassium 3.9 mmol/L (3.5-5.1); Sodium 138 mmol/L (136-145); Total Protein 6.1 g/dL (6.4-8.2)
[2023-10-27 06:06] LABS: Calcium 5.7 mg/dL (8.5-10.1)
--- NOTE | 2023-10-27 08:15 | CM.NOTE ---
Rounds made with Dr. Uriarte. Dr. Uriarte reviewed labs with Kate. Kate verbalizes understanding.
--- NOTE | 2023-10-27 08:43 | P.PN_ITS ---
Progress Note: Subjective Subjective Interval history: Patient awakens easily, no new complaints, still some shortness of breath with activity Exam Constitutional Vital Signs, click to edit/add: Last Vital Signs Temp 97.8 F 10/27/23 03:58 Pulse 74 10/27/23 07:00 Resp 16 10/27/23 03:58 BP 117/70 10/27/23 03:58 Pulse Ox 96 10/27/23 03:58 O2 Del Method Room Air 10/27/23 03:58 O2 Flow Rate 3 10/27/23 03:48 Documenting provider has reviewed patient's vital signs: yes Common normals: apparent distress (Mild conversational dyspnea) Respiratory Common normals: normal respiratory effort and no retractions Cardio Common normals: regular rate Rhythm: abnormal rhythm GI Common normals: Normal to inspection, nondistended, normoactive bowel sounds present, soft to palpation, non-tender, no hepatosplenomegaly and no masses Extremity Common normals: abnormal to inspection and clubbing, cyanosis or edema General: edema (1+) Progress Note: Objective Labs Labs: Short CBC 10/27/23 Range/Units 04:12 WBC 5.3 (4.0-11.0) 10^3/uL Hgb 8.7 L (12.0-16.0) g/dL Hct 27.8 L (36.0-48.0) % Plt Count 212 (150-450) 10^3/uL BMP 10/27/23 04:12 Sodium 138 Potassium 3.9 Chloride 97 L Carbon Dioxide 32.8 H BUN 47.0 H Creatinine 2.25 H Glucose 175 H Calcium 5.7 L* Liver Function 10/27/23 Range/Units 04:12 Total Bilirubin 0.4 (0.2-1.0) mg/dL AST 16 (15-37) U/L ALT 17 (14-59) U/L Alkaline Phosphatase 70 (46-116) U/L Albumin 2.2 L (3.4-5.0) g/dL Urine 10/26/23 Range/Units 15:40 Urine Color Lt. yellow (YELLOW) Urine Clarity Cloudy A (CLEAR) Urine pH 7.5 (5.0-9.0) Ur Specific [place] 1.015 (1.005-1.025) Urine Protein 30 A (NEG/TRACE) mg/dL Urine Glucose (UA) Negative (NEGATIVE) mg/dL Progress Note: A&P Assessment and Plan (1) COPD exacerbation: (2) Anemia: (3) Shortness of breath: (4) Left lower lobe pneumonia: Plan Admission findings: Mild respiratory distress with mild conversational dyspnea, normal white blood cell count but left shift consistent with bacterial process, respiratory acidosis with elevated pCO2 and low pH, due to acute exacerbation of COPD due to left lower lobe pneumonia. Overall I think she is improved, will continue with current treatment plan Acute blood loss anemia secondary to acute upper gastrointestinal bleeding resulting in acute upper gastrointestinal blood loss anemia-patient received 2 units of PRBCs. Blood count down slightly, maintain monitoring daily Hypocalcemia-discussed with pharmacy options for correction. She is low in the past. But not to this degree. She received 2 g yesterday, calcium finally detectable at 5.7, we will repeat the 2 g again today Hypomagnesemia-supplement Hyperphosphatemia-start PhosLo monitor daily Elevated BNP-check on echocardiogram, with peripheral edema and her increasing shortness of breath will do 1 dose of Bumex. IV drip. Diarrhea-history of C. difficile-check stool studies and is positive for C. difficile will add vancomycin History of recurrent UTIs-check urinalysis which is positive, needs IV antibiotics Severe protein calorie malnutrition-diet supplement Oxygen dependent COPD-plan as outlined above Generalized anxiety disorder-continue home medications Atrial fibrillation with controlled ventricular response-continue with home medications -holding Eliquis secondary to upper gastrointestinal blood loss anemia Hypertension-continue with home medications NIDDM-insulin sliding scale Admission status: Patient with a significant acute exacerbation of COPD secondary to progressive left lower lobe pneumonia complicated by acute upper gastrointestinal blood loss anemia due to acute upper gastrointestinal bleeding, medically necessary treatment will span [address] patient inpatient status. This is mostly due to the need for IV antibiotics, parenteral so avoiding affecting the GI tract, as well as IV supplementation for her calcium likely 2 more days
[2023-10-27 09:59] LABS: Glucometer 165 mg/dL (74-106)
[2023-10-27] MEDS: FLUOXETINE HCL 20 MG CAPSULE 40 MG PO (10:09)
[2023-10-27] MEDS: LEVETIRACETAM 250 MG TABLET PO ×2 (10:10→21:43)
[2023-10-27] MEDS: FERROUS SULFATE 325 MG TABLET PO ×2 (10:10→21:43)
[2023-10-27] MEDS: POTASSIUM CHLORIDE 10 MEQ ER TABLET 20 MEQ PO (10:10)
[2023-10-27] MEDS: LISINOPRIL 20 MG TABLET PO (10:10)
[2023-10-27] MEDS: ATORVASTATIN CALCIUM 20 MG TABLET PO (10:11)
[2023-10-27] MEDS: METOPROLOL TARTRATE 50 MG TABLET PO ×2 (10:11→21:43)
[2023-10-27] MEDS: ENSURE CLEAR 237 ML LIQUID PO ×2 (10:11→21:43)
[2023-10-27] MEDS: NYSTATIN 15 GM POWDER 1 APPLIC TOPICAL ×2 (10:14→21:45)
[2023-10-27] MEDS: L. ACIDOPHILUS/L.BULGARICUS 1 PACKET GRAN.PACK PO ×2 (10:15→21:43)
--- NOTE | 2023-10-27 10:21 | REH.PTDLY ---
Physical Therapy Daily Note PT Daily Note/Assess Start: 10/27/23 10:18 Freq: Status: Active Protocol: Document 10/27/23 10:19 FERNANDO (Rec: 10/27/23 10:21 FERNANDO [id number]) Visit Not Completed Visit Not Completed Due to: Pt refusing Other Reason Visit Not Completed Pt declines rx today. States she does not like the walkers here and she is just tired today. Physical Therapy Daily Note/Assessment Time In 10:20 Time Out 10:22
[2023-10-27] MEDS: PANTOPRAZOLE SODIUM 40 MG VIAL IV (10:31)
[2023-10-27 10:59] LABS: Glucometer 146 mg/dL (74-106)
[2023-10-27] MEDS: IPRATROPIUM/ALBUTEROL SULFATE 3 ML AMPUL.NEB IH ×3 (11:19→23:01)
[2023-10-27] MEDS: BUDESONIDE 0.5 MG/2 ML AMPULE NEB IH ×2 (11:19→23:01)
--- NOTE | 2023-10-27 12:15 | OT.DAILY ---
Occupational Therapy Daily Note OT Inpatient Daily Visit Note Start: 10/26/23 10:03 Freq: Status: Active Protocol: Document 10/27/23 12:06 HUGO (Rec: 10/27/23 12:14 HUGO Desktop) OT Visit Details Time In/Time Out Time In 11:40 Time Out 12:00 Pain In Pain Level 3 Pain Out Pain Level 3 OT Treatment Plan Subjective Subjective I am feeling a little better. Just not feeling great. Objective Objective Ed pt on bed positioning and pressure relief when lying in bed. Ed on safety with all ADL tf. Instructed to have staff A. ed senior billing consultant light usage. Pt decline to complete functional ADL tf on this date . B UE ROM stretches completed while in bed. Able to complete stretches to all planes. NO pain with stretches on this date. BUE strengthening ex completed from elbow down. No wrist strengthening in L wrist due to IV placement and causing irrittion. decline grooming task on this date. Assessment Assessment Ashley tx F on this date. Encouraged to increase participation with tx. Pt did fatigue easily and required frequent RBs Plan Plan cont with current POC OT Billing Total Treatment Time Total treatment minutes 20 Total timed treatment Minutes 20 Total untimed treatment minutes 0 Intranet Support Timed Codes Therapeutic Exercise Minutes (minutes) 20
[2023-10-27] MEDS: PIPERACILLIN SODIUM/TAZOBACTAM 3.375 GM in 0.9 % SODIUM CHLORIDE 50 ML IV ×2 (12:47→23:52)
--- NOTE | 2023-10-27 13:20 | SWNOTE1 ---
SW checked therapy note from today and pt refused PT.
[2023-10-27 14:04] LABS: C. Difficile PCR POSITIVE (NEGATIVE)
[2023-10-27 16:17] LABS: Glucometer 184 mg/dL (74-106)
[2023-10-27] MEDS: CALCIUM ACETATE 667 MG CAPSULE 1334 MG PO (16:29)
[2023-10-27] MEDS: VANCOMYCIN HCL 7,500 MG/150 ML BOTTLE 250 MG PO ×2 (17:08→21:58)
[2023-10-27 17:10] LABS: Calcium, Ionized, Serum 3.5 mg/dL (4.5-5.6)
[2023-10-27] MEDS: HYOSCYAMINE SULFATE 0.125 MG TAB.SUBL SL (18:37)
[2023-10-27 20:55] LABS: Glucometer 158 mg/dL (74-106)
--- NOTE | 2023-10-27 22:06 | PC.NURSE ---
soft loose stool
--- NOTE | 2023-10-27 22:44 | PC.NURSE ---
soft loose stool
[2023-10-28] VITALS (12 sets, daily range): BP systolic 116–142; BP diastolic 71–78; PULSE 68–82; TEMP 36.3–36.6; O2SAT 94–941
[2023-10-28] MEDS: ACETAMINOPHEN 500 MG TABLET 1000 MG PO (02:36)
[2023-10-28] MEDS: IPRATROPIUM/ALBUTEROL SULFATE 3 ML AMPUL.NEB IH ×2 (04:19→10:49)
[2023-10-28] MEDS: CALCIUM CARBONATE 500 MG (200MG ELEMENTAL) TAB CHEW 1000 MG PO ×2 (05:32→14:24)
[2023-10-28] MEDS: METHYLPREDNISOLONE SOD SUCC PF 40 MG/ML VIAL 60 MG IVP ×2 (05:32→11:10)
[2023-10-28] MEDS: MAGNESIUM OXIDE 400 MG TABLET PO ×2 (05:33→14:25)
[2023-10-28] MEDS: VANCOMYCIN HCL 7,500 MG/150 ML BOTTLE 250 MG PO ×2 (05:34→12:35)
[2023-10-28 05:46] LABS: Hematocrit 26.5 % (36.0-48.0); Hemoglobin 8.2 g/dL (12.0-16.0); Immature Granulocytes Abs Auto 0.03 10^3/uL (0.00-0.03); Immature Granulocytes Pct Auto 0.4 % (0.0-0.5); Lymphocytes Absolute Auto 0.6 10^3/uL (1.2-3.8); Lymphocytes Percent Auto 7.9 % (20.5-60.0); Mean Corpuscular HGB Conc 30.9 g/dL (29.9-35.2); Mean Corpuscular Hemoglobin 29.1 pg (26.7-34.0); Mean Platelet Volume 9.8 fL (9.5-13.5); Monocytes Absolute Auto 0.4 10^3/uL (0.3-0.8); Monocytes Percent Auto 4.8 % (1.7-12.0); Neutrophils Absolute Auto 6.4 10^3/uL (1.4-6.5); Neutrophils Percent Auto 86.9 % (43.0-75.0); Platelet Count 170 10^3/uL (150-450); Red Blood Count 2.82 10^6/uL (4.20-5.40); Red Cell Distribution Width 17.3 % (11.0-15.0); White Blood Count 7.3 10^3/uL (4.0-11.0)
[2023-10-28 06:29] LABS: Alanine Aminotransferase 14 U/L (14-59); Albumin Globulin Ratio 0.6; Albumin Level 2.2 g/dL (3.4-5.0); Alkaline Phosphatase 57 U/L (46-116); Anion Gap 13.6; Aspartate Amino Transferase 24 U/L (15-37); BUN Creatinine Ratio 22.3; Bilirubin Total 0.4 mg/dL (0.2-1.0); Carbon Dioxide 29.5 mmol/L (21.0-32.0); Chloride 97 mmol/L (98-107); Estimated GFR (African America 27 (>=60); Estimated GFR (Non-African Ame 22 (>=60); Globulin 3.6 g/dL; Glucose 137 mg/dL (74-106); Potassium 4.1 mmol/L (3.5-5.1); Sodium 136 mmol/L (136-145); Total Protein 5.8 g/dL (6.4-8.2)
[2023-10-28 06:30] LABS: Magnesium 1.8 mg/dL (1.8-2.4); Phosphorus 3.8 mg/dL (2.6-4.7)
[2023-10-28 06:36] LABS: Calcium 5.6 mg/dL (8.5-10.1)
[2023-10-28 06:37] LABS: NT Pro B Type Natriuretic Pept >35000.0 pg/mL (<=900.0)
[2023-10-28] MEDS: HYDROCODONE/ACET 5-325 MG TABLET 1 TAB PO (08:24)
[2023-10-28] MEDS: LEVETIRACETAM 250 MG TABLET PO (08:24)
[2023-10-28] MEDS: CALCIUM ACETATE 667 MG CAPSULE 1334 MG PO ×2 (08:24→12:35)
[2023-10-28] MEDS: FERROUS SULFATE 325 MG TABLET PO (08:24)
[2023-10-28] MEDS: L. ACIDOPHILUS/L.BULGARICUS 1 PACKET GRAN.PACK PO (08:24)
[2023-10-28] MEDS: PANTOPRAZOLE SODIUM 40 MG VIAL IV (08:24)
[2023-10-28] MEDS: ATORVASTATIN CALCIUM 20 MG TABLET PO (08:24)
[2023-10-28] MEDS: POTASSIUM CHLORIDE 10 MEQ ER TABLET 20 MEQ PO (08:24)
[2023-10-28] MEDS: NYSTATIN 15 GM POWDER 1 APPLIC TOPICAL (08:25)
[2023-10-28] MEDS: LISINOPRIL 20 MG TABLET PO (08:25)
[2023-10-28] MEDS: METOPROLOL TARTRATE 50 MG TABLET PO (08:25)
[2023-10-28] MEDS: FLUOXETINE HCL 20 MG CAPSULE 40 MG PO (08:25)
[2023-10-28] MEDS: ALPRAZOLAM 1 MG TABLET PO ×2 (08:25→14:24)
--- NOTE | 2023-10-28 08:51 | P.DS_ITS ---
DS: Providers Provider Date of admission: 10/25/23 22:49 Primary care physician: Non-Staff Physician, Consults: 10/26/23 06:18 Occupational Therapy Eval and Treat Routine Reason for consultation: Only if needed for Rehab Has provider been notified: No Physical Therapy Eval and Treat Routine Reason for consultation: Eval and Treat Has provider been notified: No 10/26/23 07:00 Consult to Cardiology Routine Reason for consultation: Acute CHF exacerbation Has provider been notified: No 10/26/23 09:44 Consult to Pharmacy Routine Consulting Provider: Reason for consultation: Calcium gluconate preparation recommendations Has provider been notified: No DS: Diagnosis Discharge Diagnosis (1) COPD exacerbation: (2) Anemia: (3) Shortness of breath: (4) Left lower lobe pneumonia: Plan Admission findings: Mild respiratory distress with mild conversational dyspnea, normal white blood cell count but left shift consistent with bacterial process, respiratory acidosis with elevated pCO2 and low pH, due to acute exacerbation of COPD due to left lower lobe pneumonia. Moving at the time of discharge Acute blood loss anemia secondary to acute upper gastrointestinal bleeding resulting in acute upper gastrointestinal blood loss anemia-patient received 2 units of PRBCs. Stable at time of discharge Hypocalcemia-discussed with pharmacy options for correction. She is low in the past. But not to this degree. Improving at the time of discharge Hypomagnesemia-supplement Hyperphosphatemia-monitor as an outpatient Elevated BNP-check on echocardiogram, with peripheral edema and her increasing shortness of breath will do 1 dose of Bumex. Stable at the time of discharge y Diarrhea-history of C. difficile-check stool studies and is positive for C. difficile will add vancomycin-treated for History of recurrent UTIs-finish antibiotics at discharge Severe protein calorie malnutrition-diet supplement Oxygen dependent COPD-plan as outlined above Generalized anxiety disorder-continue home medications Atrial fibrillation with controlled ventricular response-continue with home medications -holding Eliquis secondary to upper gastrointestinal blood loss anemia Hypertension-continue with home medications NIDDM-insulin sliding scale Admission status: Patient with a significant acute exacerbation of COPD secondary to progressive left lower lobe pneumonia complicated by acute upper gastrointestinal blood loss anemia due to acute upper gastrointestinal bleeding, medically necessary treatment will span [address] patient inpatient status. This is mostly due to the need for IV antibiotics, parenteral so avoiding affecting the GI tract, as well as IV supplementation for her calcium likely 2 more days ? DS: Summary Hospital Course Hospital Course: Patient was admitted with increasing shortness of breath. Found to have acute exacerbation of COPD secondary to pneumonia. Treated for that. Also looks like to have a UTI although culture was negative, sample was collected after antibiotics were started in the emergency room. Patient also started having diarrhea she does have a history of C. difficile colitis, she did test positive for that again. Vancomycin was added. Not having significant pain. On the day of discharge patient felt her breathing was much improved. She is back down to her baseline of 3 L. Although her BNP is still significantly elevated she is not having any significant peripheral edema and lung exam is improved. At this point we will discharge patient home in improving condition. Medications see list. Follow-up with her PCP and cardiology within the next week. Status at Discharge Overall status at discharge: patient is not back to baseline Time Spent with Patient Time attestation: Total time spent providing and/or coordinating discharge services: Time spent: greater than 30 minutes Exam Constitutional Vital Signs, click to edit/add: Last Vital Signs Temp 98 F 10/28/23 04:00 Pulse 78 10/28/23 08:00 Resp 18 10/28/23 04:19 BP 116/71 10/28/23 04:00 Pulse Ox 941 H 10/28/23 04:19 O2 Del Method Nasal Cannula 10/28/23 04:19 O2 Flow Rate 3 10/28/23 04:19 Documenting provider has reviewed patient's vital signs: yes Common normals: apparent distress (Mild conversational dyspnea) Respiratory Common normals: normal respiratory effort and no retractions Cardio Common normals: regular rate Rhythm: abnormal rhythm GI Common normals: Normal to inspection, nondistended, normoactive bowel sounds present, soft to palpation, non-tender, no hepatosplenomegaly and no masses Extremity Common normals: abnormal to inspection and clubbing, cyanosis or edema General: edema (1+) DS: Data Data Completed and Pending Labs on day of discharge: Labs from last 24 hours 10/28/23 10/27/23 10/27/23 04:22 20:53 16:17 WBC 7.3 RBC 2.82 L Hgb 8.2 L Hct 26.5 L MCV 94.0 MCH 29.1 MCHC 30.9 RDW 17.3 H Plt Count 170 MPV 9.8 Neut % (Auto) 86.9 H Lymph % (Auto) 7.9 L [place] % (Auto) 4.8 Eos % (Auto) 0.0 L Baso % (Auto) 0.0 L Neut # (Auto) 6.4 Lymph # (Auto) 0.6 L [place] # (Auto) 0.4 Eos # (Auto) 0.0 Baso # (Auto) 0.0 Abs Immat Gran (auto) 0.03 Imm/Tot Granulo (auto) 0.4 Sodium 136 Potassium 4.1 Chloride 97 L Carbon Dioxide 29.5 Anion Gap 13.6 BUN 48.0 H Creatinine 2.15 H Est GFR ( Amer) 27 L Est GFR (Non-Af Amer) 22 L BUN/Creatinine Ratio 22.3 Glucose 137 H Calcium 5.6 L* Ionized Calcium Phosphorus 3.8 Magnesium 1.8 Total Bilirubin 0.4 AST 24 ALT 14 Alkaline Phosphatase 57 NT-Pro-B Natriuret Pep >69560.0 H* Total Protein 5.8 L Albumin 2.2 L Globulin 3.6 Albumin/Globulin Ratio 0.6 C. difficile Toxin PCR POC Glucose 158 H 184 H 10/27/23 10/27/23 10/27/23 10:58 10:30 09:58 WBC RBC Hgb Hct MCV MCH MCHC RDW Plt Count MPV Neut % (Auto) Lymph % (Auto) [place] % (Auto) Eos % (Auto) Baso % (Auto) Neut # (Auto) Lymph # (Auto) [place] # (Auto) Eos # (Auto) Baso # (Auto) Abs Immat Gran (auto) Imm/Tot Granulo (auto) Sodium Potassium Chloride Carbon Dioxide Anion Gap BUN Creatinine Est GFR ( Amer) Est GFR (Non-Af Amer) BUN/Creatinine Ratio Glucose Calcium Ionized Calcium Phosphorus Magnesium Total Bilirubin AST ALT Alkaline Phosphatase NT-Pro-B Natriuret Pep Total Protein Albumin Globulin Albumin/Globulin Ratio C. difficile Toxin PCR Positive A* POC Glucose 146 H 165 H 10/26/23 11:34 WBC RBC Hgb Hct MCV MCH MCHC RDW Plt Count MPV Neut % (Auto) Lymph % (Auto) [place] % (Auto) Eos % (Auto) Baso % (Auto) Neut # (Auto) Lymph # (Auto) [place] # (Auto) Eos # (Auto) Baso # (Auto) Abs Immat Gran (auto) Imm/Tot Granulo (auto) Sodium Potassium Chloride Carbon Dioxide Anion Gap BUN Creatinine Est GFR ( Amer) Est GFR (Non-Af Amer) BUN/Creatinine Ratio Glucose Calcium Ionized Calcium 3.5 L Phosphorus Magnesium Total Bilirubin AST ALT Alkaline Phosphatase NT-Pro-B Natriuret Pep Total Protein Albumin Globulin Albumin/Globulin Ratio C. difficile Toxin PCR POC Glucose Discharge Plan Discharge Disposition: Home, Self-Care Condition: Good Discharge Medications: New ferrous sulfate 325 mg (65 mg iron) Tablet 325 mg PO BID Qty: 60 11RF prednisone 10 mg tablet 50 mg PO DAILY Qty: 47 0RF Rx Instructions: 5/day for 3 days. 4/day for 3 days, 3/day for 3 days, 2/day for 3 days, 1/day for 3 days, 1/2 /day for 4 days levofloxacin 750 mg tablet 750 mg PO DAILY 10 Days Qty: 10 0RF vancomycin 250 mg capsule 250 mg PO QID 14 Days Qty: 56 0RF hyoscyamine sulfate [Levsin/SL] 0.125 mg tablet, sublingual 0.125 mg PO Q6H MDD 4 PRN (Reason: dyspepsia) Qty: 60 11RF Continued albuterol sulfate [Ventolin HFA] 90 mcg/actuation HFA aerosol inhaler 2 puff INHALATION Q4H PRN (Reason: shortness of breath or wheezing) Eliquis 5 mg tablet 5 mg PO BID alprazolam 1 mg tablet 1 mg PO TID PRN (Reason: anxiety) Rexulti 1 mg tablet 1 mg PO QDAY cyclobenzaprine 10 mg tablet 10 mg PO .qhs PRN (Reason: muscle spasm) Trulicity 0.75 mg/0.5 mL pen injector 0.75 mg SUBCUT QWEEK Patient Comments: Wednesday fluoxetine 40 mg capsule 40 mg PO DAILY magnesium oxide 400 mg (241.3 mg magnesium) tablet 400 mg PO BID metoprolol tartrate 50 mg tablet 50 mg PO BID omeprazole 40 mg capsule,delayed release(DR/EC) 40 mg PO BID tizanidine 4 mg tablet 4 mg PO TID PRN (Reason: muscle spasticity) bumetanide 2 mg tablet 2 mg PO DAILY Rx Instructions: Takes 2 mg in AM and 1 mg at bedtime atorvastatin [Lipitor] 20 mg tablet 20 mg PO DAILY metolazone 2.5 mg tablet 2.5 mg PO DAILY dapagliflozin propanediol [Farxiga] 10 mg tablet 10 mg PO DAILY estradiol [Estrace] 0.01 % (0.1 mg/gram) cream 0.25 appful vaginal .2x a week fluticasone propion-salmeterol [Advair Diskus] 250-50 mcg/dose blister with device 1 inh inhalation BID lisinopril 20 mg tablet 20 mg PO DAILY promethazine 25 mg tablet 25 mg PO Q6H PRN (Reason: nausea and vomiting) hydrocodone-acetaminophen 5-325 mg tablet 1 tab PO Q8H PRN (Reason: pain) potassium chloride 20 mEq tablet extended release 20 meq PO DAILY pantoprazole 20 mg tablet,delayed release (DR/EC) 20 mg PO Q12H [id number] 3.5-10,000-1 mg/mL-unit/mL-% drops,suspension 3 drp OTIC (EAR) Q4H PRN (Reason: ear pain) calcium carbonate 200 mg calcium (500 mg) Tablet,Chewable 500 mg PO TID Qty: 90 0RF levetiracetam [Keppra] 500 mg tablet 250 mg PO BID Activity: increase activity as tolerated Diet: advance to your usual diet Print Language: Hungarian Patient Instructions: Iron Supplements (By mouth), Prednisone (By mouth), Levofloxacin (By mouth) (Levaquin, Levaquin Leva-irma), Vancomycin (By mouth), Heart Failure (DC), Pneumonia (DC) Occupational Therapist'S Assistant/Coremaker Experimental Instructions: Discharge with [facility], phone number is [phone]. Forms: Portal Instructions Referrals: MAHAMED RM [Physician] - Follow Up Appointments: Wed. Patricia 3 @ 2:30pm with KIA Griffin [phone] Discharge Date/Time: 10/28/23 15:46
--- NOTE | 2023-10-28 09:50 | REH.PTDLY ---
Physical Therapy Daily Note PT Daily Note/Assess Start: 10/27/23 10:18 Freq: Status: Active Protocol: Document 10/28/23 09:46 FERNANDO (Rec: 10/28/23 09:50 FERNANDO [id number]) Physical Therapy Daily Note/Assessment Time In 09:33 Time Out 09:45 Subjective Pt up in chair sleeping upon arrival. Agreeable to exs today. Therapeutic Exercise Minutes (minutes) 11 Therapeutic Exercise Units 1 Therapeutic Exercise Treatment Instructed pt in B LE exs with legs elevated 10x ea with AAROM for larger range. With legs lowered pt then performed marching, LAQ, hip abd 10x ea . Sit to stand transfers for leg strength performed 5x with pt using arms of chair. Standing marching and hip flex performed 10x CGA due to unsteadiness 1x with leg flex and then pt needs to sit due to LE fatigue. Total Therapy Minutes 11 Total Physical Therapy Units 1 Daily Note Summary Pt declines ambulation again today. Pt does perform all exs asked of her with fatigue noted. Pt could benefit from HH at [place] as she is weak, but when asked pt reports she is not getting HH.
[2023-10-28] MEDS: BUDESONIDE 0.5 MG/2 ML AMPULE NEB IH (10:49)
--- NOTE | 2023-10-28 10:49 | CM.NOTE ---
Rounds made with Dr. Uriarte. Dr. Uriarte reviewed labs and plan of care with Kate. Kate verbalizes understanding. Plan is after receiving IV Calcium, probable discharge .
[2023-10-28] MEDS: CALCIUM GLUCONATE 2,000 MG in 0.9 % SODIUM CHLORIDE 100 ML 120 MG IV (11:10)
[2023-10-28 11:32] LABS: Glucometer 151 mg/dL (74-106)
[2023-10-28] MEDS: HYOSCYAMINE SULFATE 0.125 MG TAB.SUBL SL ×2 (11:55→14:24)
--- NOTE | 2023-10-28 11:59 | SWNOTE1 ---
PT/OT added on to pt's home health. Possible discharge today for pt.
[2023-10-28] MEDS: LEVOFLOXACIN IN DEXTROSE 5 % 500 MG/100 ML PIGGYBACK 100 MG IV (12:31)
[2023-10-28] MEDS: INSULIN ASPART 300 UNIT/3 ML PEN SUBQ (12:32)
[2023-10-28] MEDS: BENZONATATE 100 MG CAPSULE 200 MG PO (14:26)
--- NOTE | 2023-10-28 15:22 | SWNOTE1 ---
ADINA sent dc med rec, CRF, and therapy notes from [facility] to [facility]. PT/OT were added to .
--- NOTE | 2023-10-29 15:36 | CM.DCFOLLOWU ---
Person spoke with: DaughterJuan Banerjee How are you feeling? Mom's doing pretty good Did you understand your discharge instructions?yes Do you have any questions about your discharge instructions?no Were you given any prescriptions at discharge?yes Were you able to get your prescriptions filled?yes all but vancomycin and the pharmacy had to order that and they will get soon Do you understand how to take your medications as ordered?yes Do you have any questions about your follow up appointment and do you plan to keep your follow up appointment?no and does plan to keep appointments. Has appointment also with her general expeditor on 11/08/23 Is there anything else that you would like to discuss?no
== END 2023-10-28 15:46 | disposition home health service (06) | DRG 193 ==
LOC: ER 21:53 → MS 22:56
PROVIDERS: Registered Nurse; Admitting Provider Family Medicine; Emergency Provider Emergency Medicine; Visit Provider Family Medicine
DX: J18.9 Pneumonia, unspecified organism (principal); E43 Unspecified severe protein-calorie malnutrition; I50.33 Acute on chronic diastolic (congestive) heart failure; I13.0 Hypertensive heart and chronic kidney disease with heart failure and stage 1 through stage 4 chronic kidney disease, or unspecified chronic kidney disease; E87.29 Other acidosis; N18.4 Chronic kidney disease, stage 4 (severe); J44.1 Chronic obstructive pulmonary disease with (acute) exacerbation; J44.0 Chronic obstructive pulmonary disease with (acute) lower respiratory infection; J96.11 Chronic respiratory failure with hypoxia; A04.71 Enterocolitis due to Clostridium difficile, recurrent; D62 Acute posthemorrhagic anemia; N39.0 Urinary tract infection, site not specified; F17.210 Nicotine dependence, cigarettes, uncomplicated; E83.42 Hypomagnesemia; F41.1 Generalized anxiety disorder; I27.20 Pulmonary hypertension, unspecified; I35.0 Nonrheumatic aortic (valve) stenosis; E83.39 Other disorders of phosphorus metabolism; E83.51 Hypocalcemia; F17.200 Nicotine dependence, unspecified, uncomplicated; I48.0 Paroxysmal atrial fibrillation; D63.1 Anemia in chronic kidney disease; F32.A Depression, unspecified; E11.22 Type 2 diabetes mellitus with diabetic chronic kidney disease; R56.9 Unspecified convulsions; Z79.01 Long term (current) use of anticoagulants; Z99.81 Dependence on supplemental oxygen; Z79.899 Other long term (current) drug therapy; Z79.85 Long-term (current) use of injectable non-insulin antidiabetic drugs; Z79.51 Long term (current) use of inhaled steroids; Z87.440 Personal history of urinary (tract) infections; Z82.49 Family history of ischemic heart disease and other diseases of the circulatory system; Z83.6 Family history of other diseases of the respiratory system; Z68.28 Body mass index [BMI] 28.0-28.9, adult; Z79.84 Long term (current) use of oral hypoglycemic drugs
CPT/HCPCS: 36415; 36430; 36600; 71045; 80048; 80053; 81001; 82330; 82800; 82805; 82947; 82948; 83735; 83880; 84100; 84436; 84443; 84484; 85025; 86850; 86900; 86901; 87045; 87046; 87070; 87086; 87106; 87150; 87186; 87427; 87493; 87507; 93005; 93306; 94640; 94667; 94668; 94761; 96365; 96366; 96367; 96368; 96375; 96376; 97110; 97161; 97165; 99285; 99406; G0328; J0612; J0613; J1940; J2405; J2543; J2919; J3475; P9016

== ENCOUNTER 2023-11-01 15:50 | Outpatient (REF) | payer MEDICARE, MEDICAID, SELFPAY ==
[2023-11-01 16:46] LABS: Creatinine Urine Random 40.89 mg/dL (20.00-300.00); Microalbum Creatinine Ratio Ur 528.2 mg/g (0.0-29.9); Microalbumin Urine Random 21.6 mg/dL (<=30.0)
[2023-11-01 16:47] LABS: Alanine Aminotransferase 44 U/L (14-59); Albumin Globulin Ratio 0.6; Albumin Level 2.4 g/dL (3.4-5.0); Alkaline Phosphatase 66 U/L (46-116); Anion Gap 10.9; Aspartate Amino Transferase 36 U/L (15-37); BUN Creatinine Ratio 15.8; Bilirubin Total 0.4 mg/dL (0.2-1.0); Carbon Dioxide 35.5 mmol/L (21.0-32.0); Chloride 99 mmol/L (98-107); Chol HDL Ratio 1.7; Cholesterol 101 mg/dL (<=200); Estimated GFR (African America 29 (>=60); Estimated GFR (Non-African Ame 24 (>=60); Globulin 3.7 g/dL; Glucose 143 mg/dL (74-106); HDL Cholesterol 60 mg/dL (40-60); Potassium 3.4 mmol/L (3.5-5.1); Sodium 142 mmol/L (136-145); Total Protein 6.1 g/dL (6.4-8.2); Triglycerides 185 mg/dL (<=150)
[2023-11-01 16:54] LABS: Calcium 5.1 mg/dL (8.5-10.1)
== END 2023-11-01 15:51 | disposition home or self-care (01) ==
LOC: LAB 15:50
PROVIDERS: Visit Provider Internal Medicine
DX: N18.9 Chronic kidney disease, unspecified (principal); J44.9 Chronic obstructive pulmonary disease, unspecified; I50.9 Heart failure, unspecified
CPT/HCPCS: 36415; 80053; 80061; 82043; 82570

== ENCOUNTER 2023-12-07 10:10 | Outpatient (REF) | payer MEDICARE, MEDICAID, SELFPAY | END 2023-12-07 10:11 | disposition home or self-care (01) | LOC: LAB 10:10 | PROVIDERS: Visit Provider Internal Medicine | DX: N39.0 Urinary tract infection, site not specified (principal) | CPT/HCPCS: 87086 ==

== ENCOUNTER 2024-01-21 13:41 | Outpatient (REF) | payer MEDICARE, MEDICAID, SELFPAY ==
[2024-01-21 15:11] LABS: C. Difficile PCR POSITIVE (NEGATIVE)
== END 2024-01-21 13:42 | disposition home or self-care (01) ==
LOC: LAB 13:41
PROVIDERS: Visit Provider Internal Medicine
DX: R19.7 Diarrhea, unspecified (principal); A04.72 Enterocolitis due to Clostridium difficile, not specified as recurrent
CPT/HCPCS: 87493

== ENCOUNTER 2024-04-04 12:02 | Outpatient (OUT) | payer MEDICARE, MEDICAID, SELFPAY ==
--- OUTSIDE RECORDS SUMMARY | 2024-04-04 12:17 | XMS_ITS | CCD ---
Author Organization [facility] Care Team Providers Care Supervisor Television Chassis Repair Name Role Phone JUANY BROWNYASIR Unavailable Unavailable KASANDRA BROWN Unavailable Unavailable SELF, REFERRED Unavailable Unavailable BARRY BARBER Unavailable Unavailable Smiley Davila Unavailable BARRY BARBER Primary Care Physician Ziggy Dean Unavailable JAG, DR MAHAMED Perez Admitting Unavailable HEMDENAE, DR MAHAMED Perez Attending Unavailable DR BARRY BARBER Primary Care Unavailable DR BARRY BARBER Primary Care Unavailable MIGUEL ., DR ESCALERA Admitting Unavailable HOY ., DR ESCALERA Attending Unavailable HOY ., DR ESCALERA Consulting Unavailable LYN PIPER Consulting Unavailable ADILENE ., FLAKITA Consulting Unavailable SIMON NORIEGA Consulting Unavailable NALLELY RANGEL Consulting Unavailable DR BARRY BARBER Primary Care Unavailable ZIGGY DEAN Attending Unavailable ZIGGY DEAN Admitting Unavailable HODolly ., DR ESCALERA Procedure Practitioner Unavail able HODolly ., DR ESCALERA Consulting Unavailable HODolly ., DR ESCALERA Attending Unavailable MIGUEL ., [...] Primary Care Unavailable JOHN RENEE Consulting Unavailable XIMENA QUIGLEY Consulting Unavailable DR TOYA BARBEREL Primary Care Unavailable DANN, XIMENA Attending Unavailable DANN, XIMENA Admitting Unavailable ZIEBER, DR ANITA Ambrose Consulting Unavailable KABA JR ., DR PAULINO Faustin Attending Unavaila ble KABA JR ., DR PAULINO Faustin Admitting Unavaila ble BARBER, DR REDDY Primary Care Unavailable KABA JR ., DR PAULINO Faustin Consulting Unavaila ble DANN, XIMENA Consulting Unavailable MADI SANCHEZ Consulting Unavailable BARBER, DR REDDY Primary Care Unavailable HENRY, MADI Attending Unavailable HENRY, MADI Admitting Unavailable DANN, XIMENA Consulting Unavailable BARBER, DR REDDY Primary Care Unavailable DANN, XIMENA Attending Unavailable DANN, XIMENA Admitting Unavailable SON ., DR JOSE Berumen [...] Consulting Unavailable NOHEMY, MARYLOU Consulting Unavailable Briggs, Mitra Consulting Unavailable LOJA, AFTAB Consulting Unavailable BARBER, [...] Unavailable HEMMER, DR MAHAMED Perez Attending Unavailable BARBER, DR REDDY Primary Care Unavailable HEMMER, DR MAHAMED Perez Consulting Unavailable SON ., DR JOSE Berumen Admitting Unavailable SON ., DR JOSE Berumen Attending Unavailable BARBER, DR REDDY Primary Care Unavailable SON ., DR JOSE Berumen Consulting Unavailable ELTAHAWY, DR ASCENCIO Consulting Unavailable JUSTICE, DR REDDY Primary Care Unavailable ELTAHAWY, DR ASCENCIO Attending Unavailable ELTAHAWDolly, DR ASCENCIO Admitting Unavailable SON ., DR JOSE Berumen Admitting Unavailable SON ., DR JOSE Berumen Attending Unavailable BARBER, DR REDDY Primary Care Unavailable SON ., DR JOSE Berumen Consulting Unavailable ELTAHAWDolly, SILVA Attending Unavailable ELTAHAWY, SILVA Attending Unavailable HENRYMADI Attending Unavailable PHILL SIMPSON Attending Unavailable MARTHA Barber Primary Care Provider DO Venkatesh Trammell Emergency Provider FringDO Gina orellana Admit Provider FringDO Gina orellana Attending Provider BENITO Antunez Other Provider Unavailable DO Melody Canela Other Provider MD Colin Levy Other Provider MD Jose Arriaga Other Provider MD Jeffry Hardy Other Provider MD Farhat Saleem Other Provider JERMAINE Montanez Other Provider MD Kellie Okeefe Other Provider MD Yasir [facility] Naeb Other Provider MD Daniella Estrada Other Provider Ayanna [facility] Sonia Faustin Other Provider MD Tatiana Shafer Other Provider Barry Barber Unavailable Unavailable Unavailable Annika Kaba Referring Unavailable Annika Kaba Attending Unavailable Justice THOMAS, Dr. Barry Cage Primary Care Raina Barry Mathias MD Primary Care Provider Barry Barber MD Unavailable Barry Barber MD Primary Care Provider Barry Barber MD Unavailable Unavailable Primary Care Provider UnavailBarry Palmer MD Unavailable Barry Barber MD Primary Care Provider Wednesday FLEET MECHANIC, Randee Unavailable Becca Medina Unavailable ANNIKA MONTANEZ Referring Unavailable BARRY BARBER Primary Care Unavailable Colt Live DO Unavailable [phone] Viky Madera Unavailable Unavailable Giovanni BACON MD, Justin Unavailable [phone] KAYDEN LEE Referring Unavailable PROVIDER, UNKNOWN Admitting Unavailable PROVIDER, UNKNOWN Attending Unavailable KAYDEN LEE Referring Unavailable PROVIDER, UNKNOWN Admitting Unavailable PROVIDER, UNKNOWN Attending Unavailable KAYDEN LEE Referring Unavailable PROVIDER, UNKNOWN Attending Unavailable PROVIDER, UNKNOWN Admitting Unavailable PROVIDER, UNKNOWN Attending Unavailable LALI RIVERA. Referring Unavailable JOSE CARBAJAL TJesse Admitting Unavailable LALI RIVERA Referring Unavailable AUGIE JOSE T. Admitting Unavailable PROVIDER, UNKNOWN Attending Unavailable LALI RIVERA Referring Unavailable REQUEST, IP PHYSICAL THERAPY SERVICE Consulting Unavailable JOSE CARBAJAL Attending Unavailable JOSE CARBAJAL TJesse Admitting Unavailable REQUEST, IP OCCUPATIONAL THERAPY SERVICE Consult ing Unavailable CONSULT, IP ORTHOPAEDICS GENERAL Consulting Unavailable CONSULT, IP SURGERY OMFS Consulting Unavail able CONSULT, IP GERIATRIC Consulting Unavailabl e REQUEST, IP STEEL BURNER SERVICE Consulting Unavaila ble PROVIDER, UNKNOWN Admitting Unavailable COLT LIVE Attending Unavailable PROVIDER, UNKNOWN Admitting Unavailable MENG LEOS Attending Unavailable PROVIDER, UNKNOWN Admitting Unavailable COLT LIVE Attending Unavailable PROVIDER, UNKNOWN Admitting Unavailable PROVIDER, UNKNOWN Attending Unavailable PROVIDER, UNKNOWN Admitting Unavailable MARTHA Barber Primary Care Provider ZOHRA Dahl Emergency Provider MD Michelle Lock Admit Provider MD Michelle Lock Attending Provider MD Shalonda Pearson Other Provider MD Barbi Hernandez Attending Provider Shalonda Pearson Consulting Unavailable Barbi Hernandez Attending Unavailable Michelle Lock Admitting Unava ilable Barry Barber Primary Care Unavailable SOM MADRIGAL Referring Unavailable BARRY BARBER B Primary Care Unavailable SOM MADRIGAL Attending Unavailable LALI RIVERA Referring Unavailable BARRY BARBER B Primary Care Unavailable BARRY BARBER B Referring Unavailable BARRY BARBER B Primary Care Unavailable MAHAMED RM Attending Unavailable BARRY BARBER Attending Unavailable BARRY BARBER Attending Unavailable BARRY BARBER Referring Unavailable BARRY BARBER Attending Unavailable MAHAMED RM Attending Unavailable BARRY BARBER Attending Unavailable MAHAMED RM Attending Unavailable MAHAMED RM Attending Unavailable COLT THOMASON Attending Unavailable BARRY BARBER Attending Unavailable COLT THOMASON Attending Unavailable Jacqui Michael. Attending Unavailable Jacqui Michael. Referring Unavailable Jacqui Michael Attending Unavailable Shaye Pittman Attending Unavailable Lani Wasserman Attending Unavailable Unavailable Primary Care Provider Unavailabl e Allergies Allergy Classification Reported Allergen(s) Allergy Type Date of Onset Reaction(s) Facility GRAPEFRUIT EXTRACT (1 source) GRAPEFRUIT EXTRACT Drug Allergy 4 rash [facility] NSAIDs (1 source) Naproxen Drug Allergy 4 Unknown Reaction [facility] (20 sources) GRAPEFRUIT EXTRACT; Translations: [GRAPEFRUIT] Drug Allergy 3 rash, Unknown (qualifier value), Unknown [facility] (5 sources) virgin wool Propensity to adverse reactions 4 Unknown, Unknown Reaction [facility] (5 sources) pinneapple Propensity to adverse reactions 3 rash [facility] (15 sources) Bee/Wasp/Ant venom; Translations: [Bee Stings] Drug allergy Swelling of body region (finding) [facility] (20 sources) Naproxen; Translations: [naproxen] Drug Allergy 5 Other, Unknown [facility] (20 sources) Pineapple; Translations: [PINEAPPLE] Drug allergy 3 Unknown (qualifier value), Other, Unknown [facility] (1 source) Bee Sting Drug allergy Unknown [facility] Other (2 sources) Naproxen Drug Allergy 5 [facility] Repository (1 source) Naproxen; Translations: [NAPROXEN SODIUM] Drug Allergy 5 [facility] Repository (4 sources) BEE VENOM PROTEIN (HONEY BEE); Translations: [BEE VENOM PROTEIN (HONEY BEE)] Propensity to adverse reactions to drug (disorder) 3 Anaphylaxis [facility] Repository (1 source) WOOL; Translations: [WOOL] Propensity to adverse reactions to drug (disorder) 3 [facility] Repository (17 sources) bee venom; Translations: [BEE VENOM] Propensity to adverse reactions to drug [address] [facility] (20 sources) Lanolin; Translations: [LANOLIN] Drug All[facility] ([facility] Extra Strength Grapefruit; Translations: [EXTRA STRENGTH GRAPEFRUIT] Propensity to adverse reactions to drug [address] [facility] (8 sources[facility] Honey bee venom Allergy to substance 3 [facility] Work Phone: (8 sources) Other Allergy to substance 3 [facility] (1 source) GRAPEFRUIT EXTRACT; Translations: [GRAPEFRUIT EXTRACT] Drug Allergy [address] [facility] (1 source) No Known Medication Allergies; Translations: [No Known Medication Allergies] Propensity to adverse reactions (disorder) [facility] Repository Medications Current Medications Medication Drug Class(es) Dates Sig (Normalized) Sig (Original) acetaminophen 500 mg oral capsule (20 sources) Start: 11-08-2023 take 1000 mg by mouth every six hours Acetaminophen Active 1000 MG PO Every 6 hours November 08, 2023 12:00am Start: 05-18-2023 acetaminophen (Tylenol) 500 MG tablet Take 1,000 mg by mouth 05/18/2023 Active acetaminophen 325 mg / HYDROcodone bitartrate 5 mg oral tablet (20 sources) Opioid Agonist Start: 12-09-2023 take 1 tablet by mouth every six hours Hydrocodone-Acetaminophen Active 1 TAB PO Every 6 hours December 09, 2023 12:00am Start: 12-29-2022 acetaminophen- hydrocodone 325 mg-5 mg oral tablet Refill(s) 0 Start Date: 12/29/22 Status: Ordered Start: 11-18-2022 End: 11-11-2023 take 1 tablet by mouth every six hours as needed hydrocodone-acetaminophen (NORCO) [...] as needed Orally every 6 hrs Active [id number] 200 actuat albuterol 0.09 mg/actuat metered dose inhaler (20 sources) beta2-Adrenergic Agonist Start: 11-18-2023 take 2 puff(s) by inhalation every four hours for wheezing albuterol HFA (Ventolin HFA) 90 mcg/act inhaler Indications: Panlobular emphysema (CMS/HCC) Inhale 2 puffs every 4 (four) hours if needed for wheezing or shortness of breath 18 g 5 11/18/2023 Active Start: 11-19-2022 take 2.5 mg by inhal ation every six hours Albuterol Sulfate Active 2.5 MG INHALATION Q6H November 19, 2022 12:00am Start: 11-18-2022 Albuterol Sulf ate (Ventolin Hfa) 90 mcg/actuation HFA aerosol inhaler Active 1 INH INHALATION Every 4 hours November 18, 2022 12:00am Start: 11-18-2022 Albuterol Sulf ate [...] mg oral tablet (20 sources) Benzodiazepine Start: 11-18-2022 take 1 mg by mouth twice daily Alprazolam Active 1 MG PO Twice daily November 18, 2022 12:00am Start: 08-16-2014 End: 03-22-2024 take 1 tablet by mouth three times daily as needed ALPRAZolam (XANAX) 1 MG tablet Take 1 mg by mouth 3 times daily as needed. 0 01/22/2023 Active take 1 mg by mouth e very twenty-four hours as needed ALPRAZolam XR (Xanax XR) 1 mg 24 hr tablet Take 1 tablet (1 mg) by mouth once daily as needed. Do not crush, chew, or split. 0 Active take 1 tablet by marshal every twelve hours ALPRAZolam 1 MG 1 tablet Orally Twice a day Active Amino Acids (11 sources) Start: 11-08-2023 take 1 capsule by mo [facility] every eight hours Amino Acids (Amino Acid) capsule Active CAP PO Every 8 hours November 08, 2023 12:00am 15 grams take 15 g by mouth every eight h ours AMINO ACIDS PO Take 15 g by mouth every 8 (eight) hours. Active take 15 g by mouth every eight h ours AMINO ACIDS PO Take 15 g by mouth every 8 (eight) hours. 0 Active apixaban 2.5 mg oral tablet (20 sources) Factor Xa Inhibitor Start: 07-26-2023 End: 07-25-2024 take 1 tablet by mouth in the morning Eliquis 2.5 MG tablet Take 2.5 mg by mouth in the morning and 2.5 mg before bedtime. 07/27/2023 Active Start: 12-29-2022 Eliquis 5 mg o ral tablet Refills(s) 0 Start Date: 12/29/22 Status: Ordered Start: 11-18-2022 End: 12-09-2023 take 2.5 mg by mouth twice daily Apixaban (Eliquis) 5 mg tablet Discontinued 2.5 MG PO Twice daily November 18, 2022 12:00am December 09, 2023 3:10pm Start: 11-18-2022 take 1 tablet by marshal [...] bisacodyl 5 mg delayed release oral tablet (14 sources) Stimulant Laxative Start: 05-18-2023 End: 06-17-2023 take 2 tablets by mouth once daily as needed for constipation bisacodyl (DULCOLAX) 5 MG enteric coated tablet Take 2 Tablets by mouth daily as needed for Constipation. 30 Tablet 0 05/18/2023 Active brexpiprazole 1 mg oral tablet (20 sources) Atypical Antipsychotic Start: 01-24-2022 take 1 tablet by mouth once daily Brexpiprazole (Rexulti) 1 MG tablet Indications: Depressive disorder (CMS/HCC) Take 1 tablet by mouth Daily 100 tablet 3 07/06/2023 Active Start: 03-11-2021 take 4 tablets by mo [facility] once daily Rexulti 0.25 mg oral tablet mg tab(s), Oral, Daily, Refills(s) 0, Depression Start Date: 03/11/21 Status: Ordered take 1 tablet by marshal th every twenty-four hours Rexulti 2 MG 1 tablet Orally Once a day Active take 1 tablet by marshal th every twenty-four hours Rexulti 0.5 MG 1 tablet Orally Once a day Active 120 actuat budesonide 0.16 mg/actuat / formoterol fumarate 0.0045 mg/actuat metered dose inhaler (2 sources) Corticosteroid, beta2-Adrenergic Agonist Start: 11-11-2023 take 1 puff(s) by inhalation twice daily Budesonide-Formoterol (Symbicort) 160-4.5 mcg/actuation Hfa Aerosol Inhaler Active 2 PUFF INHALATION Twice daily 10.2 November 11, 2023 12:00am bumetanide 2 mg oral tablet (20 sources) Loop Diuretic Start: 01-31-2024 take 1 tablet by mouth in the morning bumetanide (Bumex) 2 MG tablet Indications: Acute combined systolic and diastolic CHF, NYHA class 3 (CMS/HCC) TAKE 1 TABLET BY MOUTH IN THE MORNING 90 tablet 01/31/2024 Active Start: 05-17-2023 take 1 tablet by marshal th once daily bumetanide (Bumex) 2 mg tablet Take 1 tablet (2 mg) by mouth once daily. 0 05/17/2023 Active Start: 11-27-2022 End: 11-22-2023 bumetanide 1 mg Tab Refills( s) 0 Start Date: 12/29/22 Status: Ordered Start: 11-18-2022 End: 11-08-2023 take 1 mg by mouth once daily at bedtime Bumetanide Discontinued 1 MG PO Daily at bedtime November 18, 2022 12:00am November 08, 2023 1:40pm Start: 11-18-2022 End: 11-22-2023 take 1 tablet by mouth twice daily bumetanide (BUMEX) 2 MG tablet Take 2 mg by mouth 2 times daily. 0 11/27/2022 11/22/2023 Active Start: 11-18-2022 take 2 mg by mouth o nce daily in the morning Bumetanide Active 2 MG PO Every morning November 18, 2022 12:00am Start: 03-28-2022 End: 07-26-2023 take 2 tablets by mouth at bedtime bumetanide (BUMEX) 1 MG tablet Take 2 mg by mouth at bedtime. 0 03/28/2022 Active take 1 tablet by marshal th every twenty-four hours Bumetanide 1 MG 1 tablet Orally Once a day Active calcitriol 0.0005 mg oral capsule (7 sources) Vitamin D3 Analog Start: 11-11-2023 take 0.5 ug by mouth once daily Calcitriol Active 0.5 MCG PO Daily 60 November 11, 2023 12:00am calcium acetate 667 mg oral capsule (7 sources) Start: 11-11-2023 take 1334 mg by mouth once at mealtime Calcium Acetate(Phosphat Bind) Active 1334 MG PO 3x/Day with meals 180 30 November 11, 2023 12:00am take 2 capsules by m outh three times daily at mealtime calcium acetate (Phoslo) 667 MG capsule TAKE 2 CAPSULES BY MOUTH THREE TIMES DAILY WITH MEALS FOR 30 DAYS Active calcium carbonate 1250 mg ch ewable tablet (20 sources) calcium carbonat e (OS-PEDRO) 1250 (500 Ca) MG chewable tablet Take 500 mg by mouth 3 times a day. 0 Active calcium carbonat e (Tums) 200 mg calcium chewable tablet Chew 1 tablet (500 mg) once daily. 0 Active calcium carbonate 600 mg / cholecalciferol 0.01 mg oral tablet (8 sources) Vitamin D Start: 05-28-2023 take 1 tablet by mouth twice daily Calcium Carb-Cholecalciferol 600-10 MG-MCG tablet Indications: Decreased estrogen level Take 1 tablet by mouth twice daily 60 tablet 0 05/28/2023 Active Start: 11-18-2022 End: 11-08-2023 take 1 tablet by mouth twice daily Calcium Carbonate-Vitamin D3 Discontinued 400 TAB PO Twice daily November 18, 2022 12:00am November 08, 2023 1:41pm Calcium Carbonate / Vitamin D (3 sources) take 1 tablet by mouth once Calcium Carbonate-Vitamin D (CALCIUM CARBONATE W/VITAMIN D PO) Take 1 tablet by mouth every 12 (twelve) hours. 0 Active Calcium Carbonate-Vit D-Min (Calcium 600+D Plus Minerals) 600-400 MG-UNIT tablet (5 sources) Start: 11-06-2023 take 1 tablet by mouth once in the morning Calcium Carbonate-Vit D-Min (Calcium 600+D Plus Minerals) 600-400 MG-UNIT tablet Take 1 tablet by mouth in the morning and 1 tablet in the evening. 11/06/2023 Active Calcium Carbonate-Vitamin D 600-5 MG-MCG (1 source) take 1 tablet by mouth twice daily Calcium Carbonate-Vitamin D 600-5 MG-MCG 1 tablet Orally Twice a day Active Calcium Citrate (8 sources) Start: 11-08-2023 take 2 tablets by mouth in the morning, then take 2 tablets by mouth in the evening, then take 2 tablets by mouth at bedtime calcium citrate 333 MG tablet Indications: Hypocalcemia Take 2 tablets (666 mg) by mouth in the morning and 2 tablets (666 mg) in the evening and 2 tablets (666 mg) before bedtime. 180 tablet 5 11/08/2023 Active Start: 11-08-2023 take 2 tablets by mo uth three times daily Calcium Citrate Active 200 MG PO Three times daily November 08, 2023 12:00am 2 tabs TID Start: 11-08-2023 take 2 tablets by mo uth three times daily Calcium Citrate Active 0 PO Three times daily November 08, 2023 12:00am 2 tabs (666mg) TID cholecalciferol 0.025 mg oral capsule (20 sources) Vitamin D Start: 11-08-2023 take 1 capsule by mouth once daily cholecalciferol (Vitamin D-3) 25 MCG (1000 UT) capsule Indications: Hypocalcemia Take 1 capsule (25 mcg) by mouth Daily 90 capsule 3 11/08/2023 Active Start: 12-31-2021 calcium (as ca rbonate)-vitamin D [...] day(s), # 14 tab(s), Refills(s) 0, Pharmacy: [id number], 153, cm, 02/12/23 11:42:00 EDT, Height/Length Dosing, 68.3, kg, 02/03/23 9:09:00 EDT, Weight Dosing Start Date: 02/22/23 Stop Date: 03/01/23 Status: Ordered Start: 02-03-2023 End: 02-06-2023 take 1 tablet by mouth twice daily Cipro 500 mg Tab 500 mg = 1 tab(s), Oral, BID, X 3 day(s), # 6 tab(s), Refills(s) 0, Pharmacy: [id number], 153, cm, 02/03/23 9:09:00 EDT, Height/Length Dosing, 68.3, kg, 02/03/23 9:09:00 EDT, Weight Dosing Start Date: 02/03/23 Stop Date: 02/06/23 Status: Ordered Continuous Blood Gluc Receiv er (SolexelStyle Lilliam 2 [place]) device (11 sources) Start: 05-17-2023 End: 05-16-2024 Continuous Blood Gluc Receiv er (FreeStyle Lilliam 2 [place]) device Indications: Diabetic peripheral neuropathy associated with type 2 diabetes mellitus (CMS/HCC) 1 each in the morning and 1 each at noon and 1 each in the evening and 1 each before bedtime. 1 each 05/17/2023 05/16/2024 Active Start: 05-17-2023 End: 05-16-2024 Continuous Blood Gluc Receiv er (FreeStyle Lilliam 2 [place]) device Indications: Diabetic peripheral neuropathy associated with type 2 diabetes mellitus (CMS/HCC) 1 each in the morning and 1 each at noon and 1 each in the evening and 1 each before bedtime. 1 each 0 05/17/2023 05/16/2024 Active Start: 04-02-2023 End: 04-01-2024 Continuous Blood Gluc Receiv er (FreeStyle Lilliam 2 [place]) device Indications: Diabetic peripheral neuropathy associated with type 2 diabetes mellitus (CMS/HCC) 1 Product yearly. 1 each 0 04/02/2023 04/01/2024 Active Continuous Blood Gluc Sensor (FreeStyle Lilliam 2 Sensor) misc (11 sources) Start: 05-17-2023 End: 05-16-2024 Continuous Blood [...] tablet (20 sources) Muscle Relaxant Start: 11-18-2022 End: 11-11-2023 cyclobenzaprine 10 mg Tab Refills(s) 0 Start Date: 12/29/22 Status: Ordered take 1 tablet by marshal th every twenty-four hours Cyclobenzaprine HCl 10 MG 1 tablet at bedtime as needed Orally Once a day Active dapagliflozin 10 mg oral tablet (20 sources) Sodium-Glucose Cotransporter 2 Inhibitor Start: 03-13-2024 take 1 tablet by mouth in the morning dapagliflozin (Farxiga) 10 MG Indications: Diabetic mononeuropathy associated with type 2 diabetes mellitus (HCC) (CMS/HCC) TAKE 1 TABLET BY MOUTH IN THE MORNING 30 tablet 3 03/13/2024 Active Start: 10-27-2022 End: 11-25-2023 take 1 tablet by mouth in the morning Farxiga 10 MG Indications: Diabetic mononeuropathy associated with type 2 diabetes mellitus (HCC) (CMS/HCC) TAKE 1 TABLET BY MOUTH IN THE MORNING 30 tablet 02/09/2024 Active 1 ml denosumab 60 mg/ml prefilled syringe (8 sources) RANK Ligand Inhibitor denosumab (Prolia) 60 MG/ML solution prefilled syringe Inject 60 mg under the skin every 6 (six) months. Active dexamethasone 1 mg oral tablet (3 sources) Corticosteroid Start: 2022 take 1 tablet by mouth once dexamethasone 1 mg oral tablet 1 mg = 1 tab(s), Oral, Once, take at 11pm. complete cortisol level at 8am., # 1 tab(s), Refills(s) 0, Pharmacy: [id number], 154, cm, 06/10/22 10:26:00 EST, Height/Length Dosing, 86, kg, 06/10/22 10:26:00 EST, Weight Dosing Start Date: 06/10/22 Status: Ordered diphenhydrAMINE hydrochloride 25 mg oral capsule (8 sources) Histamine-1 Receptor Antagonist diphenhydrAMINE (BENADryl) 25 MG capsule Take 25 mg by mouth as needed at bedtime for itching or allergies. Active 0.5 ml dulaglutide 1.5 mg/ml auto-injector (20 sources) GLP-1 Receptor Agonist Start: 2022 inject 0.75 mg by subcutaneous injection once [...] Active - as directed Orally Active estradiol 0.001 mg/mg topical gel (17 sources) Estrogen Start: 11-08-2023 Estradiol (Divigel) 0.25 mg/0.25 gram (0.1 %) gel in packet Active 0.25 MG TRANSDERML .2times week November 08, 2023 12:00am Start: 05-02-2023 estradiol (Est race) 0.01 % (0.1 mg/gram) vaginal cream 2 times a week. 0 05/02/2023 Active Start: 02-04-2023 estradiol (Est race) 0.1 MG/GM vaginal cream APPLY A PEA SIZE AMOUNT TO URETHRA OR INNER VAGINA 3 TIMES A WEEK FOR 1 MONTH THEN 2 TIMES A WEEK FOR MAINTENANCE 02/04/2023 Active Start: 02-03-2023 Estrace 0.1 mg /g Cream See Instructions, 42.5 gm, Refill(s) 3, apply pea size amount to urethra/inner vagina 3x/week x 1 month, then 2x/week for maintainence, [id number], 153, cm, 02/03/23 9:09:00 EDT, Height/Length Dosing, 68.3, kg, 02/03/23 9:09:00 EDT, Weight Dosing Start Date: 02/03/23 Status: Ordered famotidine 20 mg oral tablet (7 sources) Histamine-2 Receptor Antagonist Start: 11-11-2023 take 1 tablet by mouth once daily Famotidine (Pepcid) 20 mg tablet Active 20 MG PO Daily November 11, 2023 12:00am ferrous sulfate 325 mg oral tablet (16 sources) Start: 10-28-2023 SV Iron 325 (6 5 Fe) MG tablet 10/28/2023 Active Start: 12-31-2021 ferrous sulfat e Oral, Refills(s) 0, Prophylaxis Start Date: 12/31/21 Status: Ordered Start: 12-31-2021 ferrous sulfat e Oral, Refills(s) 0 Start Date: 12/31/21 Status: Ordered Fish Oils (14 sources) Start: 05-11-2017 take 1000 mg by mouth once daily Fish Oil 1,000 mg, Oral, Daily, Refill(s) 0, Prophylaxis Start Date: 05/11/17 Status: Ordered FLUoxetine 40 mg oral capsule (20 sources) Serotonin Reuptake Inhibitor Start: 08-16-2014 take 1 capsule by mouth once daily fluoxetine (PROZAC) 40 MG capsule Take 40 mg by mouth daily. 0 02/14/2022 Active take 1 capsule by mo [facility] every twenty-four hours FLUoxetine HCl 20 MG 1 capsule Orally Once a day Active 60 actuat fluticasone propionate 0.25 mg/actuat / salmeterol 0.05 mg/actuat dry powder inhaler (20 sources) Corticosteroid, beta2-Adrenergic Agonist Start: 11-18-2023 take 1 puff(s) by inhalation once Fluticasone-Salmeterol (Advair Diskus) 250-50 MCG/ACT aerosol powder Indications: Panlobular emphysema (CMS/HCC) Inhale 1 puff every 12 (twelve) hours 1 each 5 11/18/2023 Active Start: 11-18-2022 Fluticasone Pr opion-Salmeterol (Advair Diskus) 250-50 mcg/dose blister with device Active 2 INH INHALATION Four times daily November 18, 2022 12:00am Start: 05-11-2017 take 1 puff(s) by in halation twice daily Advair 250 mcg-50 mcg Powder 1 puff(s), Inhalation, BID, Refill(s) 0, Shortness of breath or wheezing Start Date: 05/11/17 Status: Ordered take 2 puff(s) by mo [facility] four times daily fluticasone-salmeterol (ADVAIR DISKUS) 250-50 MCG/ACT inhaler Inhale 2 Puffs by mouth 4 times daily. 0 Active take 1 puff(s) by in halation once Fluticasone-Salmeterol (Advair Diskus) 250-50 MCG/ACT aerosol powder Inhale 1 puff every 12 (twelve) hours. 0 Active take 1 puff(s) by mo [facility] twice daily fluticasone propion-salmeteroL (Advair Diskus) [...] 1 puff Inhalation Twice a day Active Food Supplemt, Lactose-Reduced (Ensure) liquid (1 source) Start: 12-09-2023 Food Supplemt, Lactose-Reduced (Ensure) liquid Active 1 EACH PO daily December 09, 2023 12:00am furosemide 40 mg oral tablet (9 sources) Loop Diuretic Start: 05-10-2017 take 1 tablet by mouth twice daily furosemide 40 mg Tab 40 mg = 1 tab(s), Oral, BID, Refills(s) 0, diuretic/water pill Start Date: 05/10/17 Status: Ordered hyoscyamine sulfate 0.125 mg sublingual tablet (8 sources) Start: 12-01-2023 take 1 tablet by mouth every six hours hyoscyamine (Levsin) 0.125 MG SL tablet Indications: Loose stools Take 1 tablet (0.125 mg) by mouth every 6 (six) hours if needed for cramping 60 tablet 2 12/01/2023 Active Start: 11-08-2023 take 0.125 mg under the tongue every six hours Hyoscyamine Sulfate Active 0.125 MG SUBLINGUAL Every 6 hours November 08, 2023 12:00am insulin isophane, human 70 unt/ml / insulin, regular, human 30 unt/ml injectable suspension (16 sources) Insulin Start: 02-03-2023 Novolin 70/30 10 [...] Active isopropyl alcohol 0.7 ml/ml medicated pad (8 sources) Start: 06-12-2022 Alcohol Swabs (B-D SINGLE USE SWABS REGULAR) pads Apply 1 Swab topically 1 (one) time each day. 06/12/2022 Active ammonium lactate 120 mg/ml topical cream (13 sources) Start: 01-25-2024 ammonium lactate (Amlactin) 12 % cream Indications: Xerosis cutis APPLY IF NEEDED TWICE DAILY TO DRY SKIN ON FEET 280 g 01/25/2024 Active Start: 11-18-2022 Ammonium Lacta te Active 1 APPLIC TOPICAL Twice daily November 18, 2022 12:00am Lactobacillus (16 sources) take 1 tablet by mouth every eight hours LACTOBACILLUS ORAL Take 1 Tablet by mouth every 8 hours. 0 Active Lactobacillus acidophilus (3 sources) Start: 11-08-2023 lactobacillus acidophilus 0.05 mg / lactobacillus bulgaricus 0.05 mg oral tablet (1 source) Lactobacillus Pr obiotic - as directed Orally TWICE A DAY Active Lactobacillus pack (8 sources) take 1 tablet by mouth every eight hours Lactobacillus pack Take 1 tablet by mouth every 8 (eight) hours. Active take 1 tablet by marshal th every eight hours Lactobacillus pack Take 1 tablet by mout h every 8 (eight) hours. 0 Active levETIRAcetam 250 mg oral ta blet (20 sources) Start: 04-28-2023 Keppra BID, Re fills(s) 0 Start Date: 04/28/23 Status: Ordered Start: 04-05-2023 End: 04-04-2024 take 1 tablet by mouth in the morning levETIRAcetam (Keppra) 250 MG tablet Indications: Seizure disorder (CMS/HCC) Take 1 tablet (250 mg) by mouth in the morning and 1 tablet (250 mg) before bedtime. 200 tablet 3 07/06/2023 Active take 1 tablet by marshal th [...] 400 mg oral tablet (20 sources) Start: 11-24-2023 take 1 tablet by mouth twice daily MAGnesium-Oxide 400 (240 Mg) MG tablet Indications: Gastroesophageal reflux disease with esophagitis without hemorrhage Take 1 tablet by mouth twice daily 180 tablet 3 11/24/2023 Active Start: 05-01-2022 End: 01-27-2023 magnesium oxide 400 mg Tab R efills(s) 0 Start Date: 12/29/22 Status: Ordered magnesium oxide (Mag-Ox) 400 mg tablet 1 tablet (400 mg) once daily. 0 Active metoclopramide 10 mg oral tablet (12 sources) Dopamine-2 Receptor Antagonist Start: 01-25-2020 Reglan 10 mg Tab 10 mg = 1 tab(s), Oral, QIDACHS, # 1 tab(s), Refills(s) 0, Pharmacy: [id number], 154, cm, 01/25/20 14:09:00 EDT, Height/Length Dosing, 88.5, kg, 01/25/20 14:09:00 EDT, Weight Dosing Start Date: 01/25/20 Status: Ordered metOLazone 2.5 mg oral tablet (20 sources) Thiazide-like Diuretic Start: 11-20-2022 End: 11-11-2023 take 1 tablet by mouth once daily metolazone (ZAROXOLYN) 2.5 MG tablet Take 2.5 mg by mouth daily. 0 11/24/2022 Active metoprolol tartrate 50 mg oral tablet (20 sources) beta-Adrenergic Georgie Start: 10-25-2023 take 1 tablet by mouth twice daily metoprolol tartrate (Lopressor) 50 MG tablet Indications: Essential hypertension (CMS/HCC) Take 1 tablet by mouth twice daily 180 tablet 3 10/25/2023 Active Start: 08-16-2014 End: 07-26-2023 metoprolol (LOPRESSOR) 50 [...] mirabegron 50 mg extended release oral tablet (12 sources) beta3-Adrenergic Agonist Start: 04-28-2023 End: 11-11-2023 take 1 tablet by mouth once daily Myrbetriq 50 MG 24 hr tablet Take 50 mg by mouth Daily 06/21/2023 Active Multi For Her 50+ - (1 source) Multi For Her 50 + - as directed Orally Active Multiple Vitamin (MULTIVITAMINS PO) (3 sources) take 1 tablet by mouth once daily Multiple Vitamin (MULTIVITAMINS PO) Take 1 tablet by mouth 1 (one) time each day. 0 Active Multiple Vitamins-Minerals (EYE VITAMINS PO) (5 sources) take 1 tablet by mouth once daily Multiple Vitamins-Minerals (EYE VITAMINS PO) Take 1 tablet by mouth 1 (one) time each day Active Multivitamin preparation (3 sources) Start: 11-08-2023 take 1 tablet by mouth once daily Multivitamin Active 1 TAB PO Daily November 08, 2023 12:00am naloxone hydrochloride 40 mg/ml nasal spray (16 sources) Opioid Antagonist Start: 05-18-2023 naloxone 4 mg/0.1 mL nasal liquid Use 1 [place] in one nostril (alternate sides) as needed for Drug Overdose for up to 1 dose. Every 2-3 mins. until help arrives. 1 Each 0 05/18/2023 Active omeprazole 40 mg delayed release oral capsule (20 sources) Proton Pump Inhibitor Start: 12-29-2022 omeprazole 40 mg Cap-DR Refills(s) 0 Start Date: 12/29/22 Status: Ordered oxyCODONE hydrochloride 5 mg oral tablet (1 source) Opioid Agonist Start: 05-18-2023 End: 05-20-2023 take 1 tablet by mouth every six hours as needed oxyCODONE 5 MG immediate release tablet Indications: Closed displaced intertrochanteric fracture of right femur, initial encounter ([facility]) Take 1 Tablet by mouth every 6 hours as needed for up to 2 days. 8 Tablet 0 05/18/2023 05/20/2023 Active Oxygen (9 sources) oxygen (O2) gas Inhale 3 L/min continuously. via nasal canula Active oxygen (O2) gas Inhale 3 L/min continuously. via nasal canula 0 Active Oxygen 3-4 LPM Q uantity: 0 Refills: 0 Ordered: 28-Dec-2022 DO Active oxygen (O2) gas therapy (4 sources) oxygen (O2) gas therapy Inhale 1 each continuously. 0 Active pantoprazole 40 mg delayed release oral tablet (20 sources) Proton Pump Inhibitor Start: End: take 1 tablet by mouth in the morning pantoprazole (ProtoNix) 40 MG EC tablet Indications: Haddad's esophagus without dysplasia Take 1 tablet (40 mg) by mouth in the morning and 1 tablet (40 mg) before bedtime. 180 tablet 3 01/26/2024 01/25/2025 Active Start: 12-09-2023 take 40 mg by mouth twice liz y Pantoprazole Active 40 MG PO Twice daily December 09, 2023 12:00am Start: 11-08-2023 End: 11-11-2023 take 40 mg by mouth twice daily Pantoprazole Discontin ued 40 MG PO Twice daily November 08, 2023 12:00am November 11, 2023 5:21pm take 1 tablet by marshal th twice daily pantoprazole (PROTONIX) 40 MG tablet Take 40 mg by mouth 2 times daily. 0 Active polyethylene glycol 3350 20241 mg powder for oral solution (4 sources) Osmotic Laxative Start: 08-08-2020 Miralax 3350 17 gram packet 17 gram, Oral, Daily, # 255 gram, Refills(s) 3, Pharmacy: [id number], 154, cm, 08/08/20 12:03:00 EDT, Height/Length Dosing, 88.1, kg, 08/08/20 12:03:00 EDT, Weight Dosing Start Date: 08/08/20 Status: Ordered polyethylene glycol 3350 738762 mg / potassium chloride 1480 mg / sodium bicarbonate 5720 mg / sodium chloride 03622 mg powder for oral solution (2 sources) Osmotic Laxative Start: 12-31-2021 NuLYTELY Crane oral powder for reconstitution See Instructions, 1 EA, Refill(s) 0, Prior to colonoscopy., [id number], 154, cm, 12/31/21 14:58:00 EDT, Height/Length Dosing, 79.4, kg, 12/31/21 14:58:00 EDT, Weight Dosing Start Date: 12/31/21 Status: Ordered polymyxin b 28155 unt/ml / trimethoprim 1 mg/ml ophthalmic solution (1 source) Dihydrofolate Reductase Inhibitor Antibacterial, Polymyxin-class Antibacterial Start: 12-13-2021 take 1 drop(s) into the eye(s) four times daily Polymyxin B-Trimethoprim 18091-8.1 UNIT/ML 1 drop into affected eye Ophthalmic Four times a day for 5 day(s) Dec, Active potassium chloride 20 meq extended release oral tablet (20 sources) Start: 11-03-2023 take 1 tablet by mouth once daily potassium chloride CR (K-Tab) 20 MEQ ER tablet Indications: Hypokalemia Take 1 tablet (20 mEq) by mouth Daily 100 tablet 3 11/03/2023 Active Start: 10-15-2022 End: 03-30-2023 take 1 tablet by mouth [...] Ordered promethazine hydrochloride 25 mg oral tablet (20 sources) Phenothiazine Start: 03-15-2024 take 1 tablet by mouth every six hours as needed for nausea promethazine (Phenergan) 25 MG tablet Indications: Gastroesophageal reflux disease without esophagitis TAKE 1 TABLET BY MOUTH EVERY 6 HOURS NEEDED FOR NAUSEA FOR VOMITING 120 tablet 03/15/2024 Active Start: 01-10-2024 take 1 tablet by marshal th every six hours as needed for nausea promethazine (Phenergan) 25 MG tablet Indications: Gastroesophageal reflux disease without esophagitis TAKE 1 TABLET BY MOUTH EVERY 6 HOURS NEEDED FOR NAUSEA FOR VOMITING 120 tablet 01/10/2024 Active Start: 11-08-2023 take 25 mg by mouth every six hours Promethazine Active 25 MG PO Every 6 hours November 08, 2023 12:00am Start: 05-11-2017 take 1 tablet by marshal th every six hours for nausea promethazine (Phenergan) [...] day(s), # 90 cap(s), Refills(s) 0, Pharmacy: [id number], 154, cm, 12/31/21 14:58:00 EDT, Height/Length Dosing, 79.4, kg, 12/31/21 14:58:00 EDT, Weight Dosing Start Date: 12/31/21 Stop Date: 03/31/22 Status: Ordered sennosides, [facility] 8.6 mg oral tablet (16 sources) Start: 05-18-2023 take 1 tablet by mouth once daily as needed for constipation senna (SENOKOT) 8.6 MG tablet Take 1 Tablet by mouth daily as needed for Constipation. 30 Tablet 0 05/18/2023 Active tiZANidine 4 mg oral tablet (20 sources) Central alpha-2 Adrenergic Agonist Start: 07-06-2023 take 1 tablet by mouth every eight hours as needed for muscle spasms and muscle spasms tiZANidine (Zanaflex) 4 MG tablet Indications: Muscle spasm Take 1 tablet (4 mg) by mouth every 8 (eight) hours if needed for muscle spasms 90 tablet 2 07/06/2023 Active Start: 11-18-2022 take 4 mg by mouth t hree times daily Tizanidine Active 4 MG PO Three times daily November 18, 2022 12:00am Start: 09-10-2020 take 1 mg by mouth t hree times daily tizanidine 4 mg oral capsule mg cap(s), Oral, TID, Refills(s) 0, Spasm Start Date: 09/10/20 Status: Ordered take 1 tablet by [facility] every twelve hours tiZANidine HCl 4 MG 1 tablet as needed Orally TWICE A DAY Active Ventolin HFA 90 mcg/inh Aerosol (14 sources) Start: 05-11-2017 take 2 puff(s) by [...] pharmacy (Rx) Start Date: 10/30/20 Status: Ordered levoFLOXacin 750 mg oral tablet (3 sources) Quinolone Antimicrobial Start: 11-08-2023 End: 11-11-2023 take 750 mg by mouth once daily Levofloxacin Discontinued 750 MG PO Daily November 08, 2023 12:00am November 11, 2023 4:50pm ondansetron 4 mg disintegrating oral tablet (17 sources) Serotonin-3 Receptor Antagonist Start: 11-08-2023 End: 11-11-2023 take 4 mg by mouth every six hours Ondansetron Discontinued 4 MG PO Every 6 hours November 08, 2023 12:00am November 11, 2023 4:50pm Start: 12-29-2022 ondansetron 4 mg Tab Refills(s) 0 Start Date: 12/29/22 Status: Ordered Start: 11-11-2022 take 1 tablet by marshal th every six hours for nausea ondansetron (Zofran) 4 MG tablet Indications: Gastroesophageal reflux disease without esophagitis Take 1 tablet (4 mg) by mouth every 6 (six) hours if needed for nausea or vomiting. 120 tablet 5 11/11/2022 Active triamcinolone acetonide 40 mg/ml injectable suspension (2 sources) Corticosteroid Start: 12-13-2021 Kenalog-40 Dec, 40 mg vancomycin 250 mg oral capsule (3 sources) Glycopeptide Antibacterial Start: 11-08-2023 End: 12-09-2023 take 250 mg by mouth three times daily Vancomycin Discontinued 250 MG PO Three times daily November 08, 2023 12:00am December 09, 2023 3:11pm Problems Active Problems Problem Classification Problem Date Documented Date Episodic/Chronic Acquired foot deformities (20 sources) Acquired hallux valgus; Translations: [Hallux valgus (acquired), unspecified foot] Onset: 1 05-18-2023 Chronic Allergic reactions (1 source) Allergy status to [...] Translations: [Chronic kidney disease, unspecified] Onset: 2 Resolved: 4 03-30-2023 Chronic Chronic kidney disease (3 sources) [...] Onset: 8 Chronic Deficiency and other anemia (8 sources) Anemia of renal disease; Translations: [Anemia in chronic kidney disease] Onset: 4 11-09-2023 Chronic Deficiency and other anemia (3 sources) Anemia in chronic kidney disease; Translations: [...] mellitus without complications; Translations: [Diabetes mellitus] Onset: 6 11-07-2019 Chronic Disorders of lipid metabolism (20 [...] W/O BLEEDING] Onset: 8 Chronic Epilepsy; convulsions (20 sources) Epilepsy; Translations: [Epilepsy, unspecified, not intractable, without status epilepticus] Onset: 3 05-18-2023 Chronic Esophageal disorders (20 sources) Haddad's esophagus; Translations: [Haddad's esophagus without dysplasia] Onset: 8 Chronic Essential hypertension (20 sources) Essential (primary) hypertension; Translations: [Essential hypertension] Onset: 8 Chronic Genitourinary symptoms and ill-defined conditions (20 sources) Incontinence without sensory awareness; Translations: [Incontinence without sensory awareness] Onset: 4 02-03-2023 Chronic Heart valve disorders (20 sources) Nonrheumatic aortic (valve) stenosis; Translations: [Rheumatic tricuspid insufficiency] Onset: 2 11-19-2022 Chronic Hepatitis (20 sources) Nonalcoholic steatohepatitis; Translations: [Nonalcoholic steatohepatitis (RASMUSSEN)] Onset: 3 05-18-2023 Chronic Hypertension with complications and secondary hypertension (20 sources) Chronic kidney disease due to hypertension; Translations: [Hypertensive chronic kidney disease with stage 1 through stage 4 chronic kidney disease, or unspecified chronic kidney disease] Onset: 2 Chronic Immunizations and screening for infectious disease (2 sources) Carrier of other intestinal infectious diseases; Translations: [Clostridioides difficile carrier] 12-09-2023 Episodic Lymphadenitis (1 source) Localized enlarged lymph nodes; Translations: [LOCALIZED ENLARGED LYMPH NODES] Onset: 8 Episodic Medical examination/evaluatio n (1 source) Encounter for other preprocedural examination; Translations: [ENCOUNTER FOR OTHER PREPROCEDURAL EXAMINATION] Onset: 8 Episodic Menopausal disorders (20 sources) Decreased estrogen level; Translations: [Other primary ovarian failure] Onset: 0 05-18-2023 Chronic Mood disorders (20 sources) Depressive disorder; Translations: [Major depressive disorder, single episode, unspecified] Onset: 8 11-07-2019 Chronic Mycoses (2 sources) Pain in toe; Translations: [Tinea unguium] 03-03-2024 Episodic Nutritional deficiencies (20 sources) Moderate protein-calorie malnutrition; Translations: [Deficiency of macronutrients] Onset: 3 05-18-2023 Chronic Osteoarthritis (20 sources) Arthritis; Translations: [Unspecified osteoarthritis, unspecified site] Onset: 5 11-07-2019 Chronic Osteoporosis (20 sources) Osteoporosis; Translations: [Age-related osteoporosis without current pathological fracture] Onset: 7 05-18-2023 Chronic Other aftercare (2 sources) Other yeast maker (current) drug therapy; Translations: [OTHER [facility]DC (CURRENT) DRUG THERAPY] Onset: 8 Episodic Other aftercare (1 source) half-way (current) use of anticoagulants; Translations: [FDC CURRNT USE ANTICOAGULANTS] Onset: 3 Episodic Other aftercare (1 source) half-way (current) use of inhaled steroids; Translations: [LABORATORY TECHNOLOGY TEACHER USE OF INHALED STEROIDS] Onset: 3 Episodic Other and ill-defined heart disease (14 sources) Heart disease 09-10-2020 Chronic Other and ill-defined heart disease (5 sources) Diastolic dysfunction; Translations: [Other ill-defined heart diseases] Onset: 4 11-03-2023 Chronic Other and ill-defined heart disease (5 sources) Left ventricular hypertrophy; Translations: [Cardiomegaly] Onset: 4 11-03-2023 Chronic Other circulatory disease (1 source) Low blood pressure; Translations: [Hypotension, unspecified] Episodic Other diseases of kidney and ureters (20 sources) Renal mass; Translations: [Other specified disorders of kidney and ureter] Onset: 4 06-10-2022 Chronic Other diseases of kidney and ureters (1 source) Secondary hyperparathyroidism; Translations: [Secondary hyperparathyroidism of renal origin] Chronic Other diseases of kidney and ureters (5 sources) Secondary hyperparathyroidism of renal origin; Translations: [Secondary hyperparathyroidism (of renal origin)] Onset: 4 Chronic Other diseases of kidney and ureters (4 sources) Other specified disorders of kidney and ureter; Translations: [OTHER SPEC DISORDERS KIDNEY URETER] Onset: 3 Chronic Other diseases of kidney and ureters (7 sources) Hyperparathyroidism due to renal insufficiency; Translations: [Secondary hyperparathyroidism of renal origin] Onset: 4 11-09-2023 Chronic Other diseases of kidney and ureters (1 source) Cyst of kidney, acquired; Translations: [CYST OF KIDNEY, ACQUIRED] Onset: 8 Episodic Other diseases of kidney and ureters (7 sources) Acquired renal cyst without neoplastic change; Translations: [Cyst of kidney, acquired] Onset: 3 Episodic Other diseases of kidney and ureters (10 sources) Cyst of kidney 06-10-2022 Episodic Other ear and sense organ disorders (20 sources) Bilateral hearing loss; Translations: [Unspecified hearing loss, bilateral] Onset: 3 05-18-2023 Chronic Other ear and sense organ disorders (20 sources) Sensorineural hearing loss, bilateral; Translations: [Sensorineural hearing loss, bilateral] Onset: 3 05-18-2023 Chronic Other ear and sense organ disorders (3 sources) Unspecified hearing loss Onset: 3 05-18-2023 Chronic Other ear and sense organ disorders (3 sources) Sensorineural hearing loss, bilateral Onset: 3 05-18-2023 Chronic Other endocrine disorders (6 sources) Other specified disorders of adrenal gland; Translations: [OTHER SPECIFIED DISORDERS OF ADRENAL GLAND] Onset: 8 Chronic Other endocrine disorders (7 sources) Disorder of adrenal gland; Translations: [Other specified disorders of adrenal gland] Onset: 3 Chronic Other endocrine disorders (20 sources) Adrenal mass; Translations: [Other specified disorders of adrenal gland] Onset: 1 05-18-2023 Chronic Other endocrine disorders (3 sources) Other specified disorders of adrenal glands Onset: 1 05-18-2023 Chronic Other gastrointestinal disorders (1 source) Irritable bowel syndrome without diarrhea; Translations: [IRRITABLE BOWEL SYND W/O DIARRHEA] Onset: 2 Chronic Other gastrointestinal disorders (1 source) Irritable bowel syndrome with diarrhea; Translations: [IRRITABLE BOWEL SYND W/DIARRHEA] Onset: 3 Chronic Other gastrointestinal disorders (1 source) Abnormal feces; Translations: [Other fecal abnormalities] Onset: 2 Episodic Other gastrointestinal disorders (2 sources) Diarrhea; Translations: [Diarrhea, unspecified] Onset: 2 Episodic Other gastrointestinal disorders (10 sources) Adrenal mass 02-08-2023 Episodic Other gastrointestinal disorders (1 source) Diarrhea, unspecified; Translations: [Diarrhea] 12-09-2023 Episodic Other hereditary and degenerative nervous system conditions (1 source) Restless legs syndrome; Translations: [RESTLESS LEGS SYNDROME] Onset: 3 Chronic Other inflammatory condition of skin (20 sources) Psoriatic arthritis; Translations: [Arthropathic psoriasis, unspecified] Onset: 2 11-07-2019 Chronic Other inflammatory condition of skin (20 sources) Psoriasis; Translations: [Psoriasis, unspecified] Onset: 9 05-18-2023 Chronic Other inflammatory condition of skin (3 sources) Other psoriasis Onset: 9 05-18-2023 Chronic Other inflammatory condition of skin (3 sources) Psoriatic arthropathy Onset: 2 05-18-2023 Chronic Other liver diseases (15 sources) Steatosis of liver; Translations: [Fatty (change of) liver, not elsewhere classified] Onset: 2 Chronic Other liver diseases (3 sources) Other chronic nonalcoholic liver disease Onset: 3 05-18-2023 Chronic Other nervous system disorders (20 sources) Chronic pain; Translations: [Other chronic pain] Onset: 8 05-18-2023 Chronic Other nervous system disorders (3 sources) Other chronic pain Onset: 8 05-18-2023 Chronic Other nutritional; endocrine; and metabolic disorders (20 sources) Morbid obesity; Translations: [Morbid (severe) obesity due to excess calories] Onset: 2 08-20-2014 Chronic Other nutritional; endocrine; and metabolic disorders (5 sources) Hypocalcemia; Translations: [Hypocalcemia] Onset: 3 11-08-2023 Chronic Other nutritional; endocrine; and metabolic disorders (1 source) Body mass index (BMI) 31.0-31.9, adult; Translations: [BODY MASS INDEX BMI 31.0-31.9 ADULT] Onset: 2 Chronic Other nutritional; endocrine; and metabolic disorders (1 source) Obesity, unspecified; Translations: [OBESITY UNSPECIFIED] Onset: 2 Chronic Other nutritional; endocrine; and metabolic disorders (6 sources) Hypomagnesemia; Translations: [Disorders of magnesium metabolism] Onset: 3 11-08-2023 Chronic Other nutritional; endocrine; and metabolic disorders (1 source) Body mass index (BMI) 34.0-34.9, adult; Translations: [BODY MASS INDEX BMI 34.0-34.9 ADULT] Onset: 3 Chronic Other nutritional; endocrine; and metabolic disorders (20 sources) Body mass index 30+ - obesity; Translations: [Body mass index (BMI) 31.0-31.9, adult] Onset: 3 Resolved: 4 03-30-2023 Chronic Other nutritional; endocrine; and metabolic disorders (8 sources) Hypomagnesemia; Translations: [Hypomagnesemia] Onset: 4 11-08-2023 Chronic Other nutritional; endocrine; and metabolic disorders (9 sources) Hypocalcemia; Translations: [Hypocalcemia] Onset: 4 11-08-2023 Chronic Other nutritional; endocrine; and metabolic disorders (3 sources) Morbid obesity Onset: 2 05-18-2023 Chronic Other nutritional; endocrine; and metabolic disorders (3 sources) Obesity, unspecified Onset: 3 05-18-2023 Chronic Other nutritional; endocrine; and metabolic disorders (3 sources) Overweight in adulthood with body mass index of 25 or more but less than 30; Translations: [Overweight] Onset: 4 07-26-2023 Episodic Other skin disorders (2 sources) Asteatosis cutis; Translations: [Xerosis cutis] 03-03-2024 Episodic Peripheral and visceral atherosclerosis (6 sources) Atherosclerosis of aorta; Translations: [Peripheral vascular disease] Onset: 8 07-06-2023 Chronic Pneumonia (except that caused by tuberculosis [...] APNEA] Onset: 2 Chronic Residual codes; unclassified (20 sources) Obstructive sleep apnea syndrome; Translations: [Obstructive sleep apnea (adult) (pediatric)] Onset: 8 05-18-2023 Chronic Residual codes; unclassified (3 sources) Obstructive sleep apnea (adult)(pediatric) Onset: 8 05-18-2023 Chronic Residual codes; unclassified [...] [FAMILY HISTORY OF STROKE] Onset: 3 Episodic Residual codes; unclassified (1 source) Tobacco user 03-15-2024 Episodic Respiratory failure; insufficiency; arrest (adult) (20 sources) Dependence on supplemental oxygen; Translations: [Acute [...] OF DIGESTIVE TRACT] Onset: 8 Episodic Unclassified (10 sources) Asymptomatic microscopic hematuria 06-10-2022 Unclassified (1 source) PERSONAL HISTORY OF COVID-19; Translations: [PERSONAL HISTORY OF COVID-19] Onset: 3 Unclassified (1 source) Chronic atrial fibrillation, unspecified; Translations: [CHRONIC ATRIAL FIBRILLATION UNSPEC] Onset: 3 Unclassified (1 source) CHRN KIDNEY DISEASE STG 3 UNSP; Translations: [CHRN KIDNEY DISEASE STG 3 UNSP] Onset: 3 Unclassified (1 source) LABORATORY 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 TEACHER INJECT NONINSULN ANTIDIAB; Translations: [FDC INJECT NONINSULN ANTIDIAB] Onset: 3 Unclassified (1 [...] pain, unspecified] Onset: Episodic Acquired foot deformities (20 sources) Right foot drop; Translations: [Foot drop, right foot] Onset: 023 05-18-2023 Episodic Acute and unspecified renal failure (13 sources) Acute kidney failure, unspecified; Translations: [Acute renal failure syndrome] Onset: 023 Resolve d: 024 11-08-2023 Episodic Acute posthemorrhagic anemia (20 sources) Acute posthemorrhagic anemia; Translations: [Acute posthemorrhagic anemia] Onset: 024 05-18-2023 Episodic Bacterial infection; unspecified site (6 sources) Other specified bacterial agents as the cause of diseases classified elsewhere; Translations: [Clostridioides difficile infection] Onset: 11-03-2023 Episodic Deficiency and other anemia (5 sources) Iron deficiency anemia, unspecified; Translations: [IRON DEFICIENCY ANEMIA UNSPECIFIED] Onset: Episodic E Codes: Fall (16 sources) Fall; Translations: [Unspecified fall, initial encounter] Onset: 05-18-2023 Episodic Epilepsy; convulsions (20 sources) Unspecified convulsions; Translations: [Seizure] Onset: Episodic Fever of unknown origin (4 sources) Fever, unspecified; Translations: [FEVER UNSPECIFIED] Onset: Episodic Fluid and electrolyte disorders (7 sources) Hyperosmolality and hypernatremia; Translations: [Hypokalemia] Onset: 11-03-2023 Episodic Fracture of neck of femur (hip) (20 sources) Closed intertrochanteric fracture; Translations: [Displaced intertrochanteric fracture of right femur, initial encounter for closed fracture] Onset: 05-18-2023 Episodic Genitourinary symptoms and ill-defined conditions (20 sources) Retention of urine; Translations: [Retention of urine, unspecified] Onset: Episodic Heart valve disorders (20 sources) Systolic murmur; Translations: [Cardiac murmur, unspecified] Onset: 05-18-2023 Episodic Hemorrhoids (20 sources) External hemorrhoids; Translations: [Residual hemorrhoidal skin tags] Onset: 05-18-2023 Episodic Intestinal infection (17 sources) Enterocolitis due to Clostridium difficile, not specified as recurrent; Translations: [Clostridium difficile colitis] Onset: 05-14-2023 Episodic Joint disorders and dislocations; trauma-related (16 sources) Dislocation of temporomandibular joint; Translations: [Dislocation of jaw, unspecified side, initial encounter] Onset: 05-18-2023 Episodic Malaise and fatigue (3 sources) Other fatigue; Translations: [Weakness] Onset: Episodic Mood disorders (4 sources) Mood disorders; Translations: [DEPRESSION UNSPECIFIED] Onset: 04-23-2023 Other aftercare (1 source) half-way (current) use of aspirin; Translations: [FDC CURRENT USE OF ASPIRIN] Onset: Episodic Other aftercare (2 sources) half-way (current) use of insulin; Translations: [FDC CURRENT USE OF INSULIN] Onset: Episodic Other aftercare (20 sources) Drug therapy finding; Translations: [Long-term (current) use of anticoagulants] Onset: 03-30-2023 Episodic Other aftercare (5 sources) Long-term current use of anticoagulant; Translations: [rn tele (current) use of anticoagulants] Onset: 07-06-2023 Episodic Other aftercare (3 sources) Long-term (current) use of anticoagulants Onset: 05-18-2023 Episodic Other and unspecified benign neoplasm (20 sources) History of polyp of colon; Translations: [Personal history of colonic polyps] Onset: Episodic Other and unspecified benign neoplasm (20 sources) Polyp of colon; Translations: [Polyp of colon] Onset: 02-27-2020 Episodic Other and unspecified benign neoplasm (3 sources) Personal history of colonic polyps Onset: 05-18-2023 Episodic Other and unspecified benign neoplasm (3 sources) Benign neoplasm of colon Onset: 05-18-2023 Episodic Other connective tissue disease (20 sources) Spasm; Translations: [Other muscle spasm] Onset: 11-07-2019 Episodic Other connective tissue disease (20 sources) Adhesive capsulitis of left shoulder; Translations: [Adhesive capsulitis of left shoulder] Onset: 05-18-2023 Episodic Other connective tissue disease (5 sources) Muscle weakness; Translations: [Muscle weakness (generalized)] Onset: 07-06-2023 Episodic Other connective tissue disease (3 sources) Adhesive capsulitis of shoulder Onset: 05-18-2023 Episodic Other connective tissue disease (3 sources) Spasm of muscle Onset: 05-18-2023 Episodic Other diseases of bladder and urethra (3 sources) Other specified disorders of urethra Onset: 05-18-2023 Episodic Other diseases of kidney and ureters (3 sources) Unspecified disorder of kidney and ureter Onset: 2024 Episodic Other diseases of veins and lymphatics (20 sources) Peripheral venous insufficiency; Translations: [Venous insufficiency (chronic) (peripheral)] Onset: 05-18-2023 Episodic Other diseases of veins and lymphatics (3 sources) Venous (peripheral) insufficiency, unspecified Onset: 05-18-2023 Episodic Other disorders of stomach and duodenum (20 sources) Gastroparesis syndrome; Translations: [Gastroparesis] Onset: 01-25-2020 Episodic Other disorders of stomach and duodenum (3 sources) Gastroparesis Onset: 05-18-2023 Episodic Other ear and sense organ disorders (20 sources) Bilateral tinnitus; Translations: [Tinnitus, bilateral] Onset: 05-18-2023 Episodic Other ear and sense organ disorders (3 sources) Tinnitus, unspecified Onset: 05-18-2023 Episodic Other eye disorders (1 [...] [Other fecal abnormalities] Onset: 12-31-2021 Episodic Other gastrointestinal disorders (6 sources) Constipation, unspecified Onset: 05-18-2023 Episodic Other gastrointestinal disorders (3 sources) Dysphagia, unspecified Onset: 05-18-2023 Episodic Other gastrointestinal disorders (3 sources) Heartburn Onset: 05-18-2023 Episodic Other gastrointestinal disorders (3 sources) Abnormal feces Onset: 4 Episodic Other hematologic conditions (1 source) Other specified abnormalities of plasma proteins; Translations: [OTH SPEC ABNORM PLASMA PROTEINS] Onset: Episodic Other infections; including parasitic (5 sources) H/O: infectious disease; Translations: [Personal history of other infectious and parasitic diseases] Onset: 07-06-2023 Episodic Other injuries and conditions due to external causes (13 sources) H/O: fracture; Translations: [Personal history of (healed) traumatic fracture] Onset: 05-14-2023 Episodic Other injuries and conditions due to external causes (3 sources) Personal history of traumatic fracture Onset: 05-14-2023 Episodic Other lower respiratory disease (1 source) Dyspnea, unspecified; Translations: [DYSPNEA UNSPECIFIED] Onset: Episodic Other lower respiratory disease (1 source) Hypoxemia; Translations: [HYPOXEMIA] Onset: Episodic Other lower respiratory disease (3 sources) Shortness of breath; Translations: [SHORTNESS OF BREATH] Onset: Episodic Other lower respiratory disease (13 sources) Cough; Translations: [Cough] Onset: 05-18-2023 Episodic Other lower respiratory disease (8 sources) Chronic cough; Translations: [Chronic cough] Onset: 11-10-2022 Episodic Other lower respiratory disease (3 sources) Cough Onset: 05-18-2023 Episodic Other nervous system disorders (13 sources) Acute pain due to injury; Translations: [Acute pain due to trauma] Onset: 05-18-2023 Episodic Other nervous system disorders (13 sources) Acute postoperative pain; Translations: [Other acute postprocedural pain] Onset: 05-18-2023 Episodic Other nervous system disorders (18 sources) Abnormal gait; Translations: [Unspecified abnormalities of gait and mobility] Onset: 05-18-2023 Episodic Other nervous system disorders (1 source) Unspecified abnormalities of gait and mobility; Translations: [Unspecified abnormalities of gait and mobility] Onset: Episodic Other nervous system disorders (5 sources) Symbolic dysfunction; Translations: [Other symbolic dysfunctions] Onset: 07-06-2023 Episodic Other nervous system disorders (3 sources) Acute pain due to trauma Onset: 05-18-2023 Episodic Other nervous system disorders (3 sources) Other acute postoperative pain Onset: 05-18-2023 Episodic Other nervous system disorders (3 sources) Abnormality of gait Onset: 05-18-2023 Episodic Other screening for suspected conditions (not mental disorders or infectious disease) (20 sources) Echocardiogram abnormal; Translations: [Nonspecific (abnormal) findings on radiological and other examination of other intrathoracic organs] Onset: 03-30-2023 Episodic Other upper respiratory disease (1 source) Nasal congestion; Translations: [NASAL CONGESTION] Onset: Episodic Other upper respiratory infections (20 sources) Acute sinusitis; Translations: [Acute sinusitis, unspecified] Onset: Resolve d: 05-18-2023 Episodic Residual codes; unclassified (5 sources) Insomnia; Translations: [Insomnia, unspecified] Onset: 07-06-2023 Episodic Screening and history of mental health and substance abuse codes (1 source) Personal history of nicotine dependence; Translations: [PERSONAL HISTORY OF NICOTINE DEPEND] Onset: Episodic Skull and face fractures (20 sources) Fracture of mandible; Translations: [Fracture of mandible, unspecified, initial encounter for closed fracture] Onset: 05-18-2023 Episodic Unclassified (2 sources) Unknown / UNK(Unknown) Onset: Unclassified (12 sources) Esophagogastroduodenoscopy gastric outlet reduction Onset: 02-16-2022 Unclassified (1 source) Exposure to 2019 novel coronavirus; Translations: [Contact with and (suspected) exposure to COVID19] Unclassified (4 sources) Onset: Resolve d: 03-30-2023 Urinary tract infections (20 sources) Acute cystitis; Translations: [Postinfective urethral stricture of female] Onset: 06-10-2022 Episodic Results Test Name Value Interpretation Reference Range Facility Ambulatory Visit Summaryon 1 05-15-2023 Ambulatory Visit Summary Ambulatory Visit Summary KATE HAGEN :1950 Visit Date:03/15/2024 Ambulatory Visit Instructions Your Diagnosis Recurrent UTI Urgency of urination Pneumaturia Urinary retention Renal cyst Adrenal mass Your Care Team Attending Physician - Alec XIE, Jacqui Nieves Primary Care Physician - BARRY BARBER MD This Is Your Medications List Contact prescribing physician if questions or concerns acetaminophen-hydrocodone (acetaminophen-hydrocodone 325 mg-5 mg oral tablet) albuterol (Ventolin [...] of hysterectomy., Repair of hip. Discharge Vitals Height 153 cm Height 60 in Weight 61.2 kg Weight 134.923 lb BMI 26.14 What to do next You Need to Schedule the Following Appointments Follow Up with Alec XIE, CARLY [place], [facility] When: Where: Medications What How Much When Instructions Unchanged acetaminophen-hydrocodone (acetaminophen-hydrocodone 325 mg-5 mg oral tablet) Contact prescribing physician if questions or concerns Unchanged albuterol (Ventolin HFA 90 mcg/ inh Aerosol) 2 Puffs Inhalation 4 times a day Contact prescribing physician if questions or concerns Unchanged alprazolam (alprazolam 1 mg Tab) Contact prescribing physician if questions or concerns Unchanged apixaban (Eliquis 5 mg oral tablet) Contact prescribing physician if questions or concerns Unchanged atorvastatin (atorvastatin 20 mg Tab) 1 Tablets By Mouth Once a day (at bedtime) Contact prescribing physician if questions or concerns Unchanged brexpiprazole (Rexulti 0.25 mg oral tablet) By Mouth Every day Contact prescribing physician if questions or concerns Unchanged bumetanide (bumetanide 1 mg Tab) Contact prescribing physician if questions or concerns Unchanged calcium-vitamin D (calcium (as carbonate)-vitamin D 90 mg-25 mcg (1000 intl units) oral tablet) Contact prescribing physician if questions or concerns Unchanged cyclobenzaprine (cyclobenzaprine 10 mg Tab) Contact prescribing physician if questions or concerns Unchanged dapagliflozin (Farxiga 10 mg oral tablet) Contact prescribing physician if questions or concerns Unchanged dulaglutide (Trulicity Pen) 1.5 Milligram Subcutaneous Every week Contact prescribing physician if questions or concerns Unchanged estradiol topical (Estrace 0.1 mg/ g Cream) See instructions apply pea size amount to urethra/ inner vagina 3x/ week x 1 month, then 2x/ week for maintainence Contact prescribing physician if questions or concerns Unchanged fluoxetine 40 Milligram By Mouth Every day Contact prescribing physician if questions or concerns Unchanged fluticasone-salmeterol (Advair 250 mcg-50 mcg Powder) 1 Puffs Inhalation 2 times a day Contact prescribing physician if questions or concerns Unchanged insulin isophane-insulin regular (Novolin 70/ 30 10 mL Susp-Inj) Contact prescribing physician if questions or concerns Unchanged levetiracetam (Keppra) 2 times a day Contact prescribing physician if questions or concerns Unchanged magnesium oxide (magnesium oxide 400 mg Tab) Contact prescribing physician if questions or concerns Unchanged metolazone (metolazone 2.5 mg Tab) Contact prescribing physician if questions or concerns Unchanged metoprolol (Metoprolol tartrate 50 mg Tab) 1 Tablets By Mouth 2 times a day Contact prescribing physician if questions or concerns Unchanged mirabegron (Myrbetriq 50 mg oral tablet, extended release) 1 Tablets By Mouth Every day Contact prescribing physician if questions or concerns Unchanged omega-3 polyunsaturated fatty acids (Fish Oil) 1,000 Milligram By Mouth Every day Contact prescribing physician if questions or concerns Unchanged omeprazole (omeprazole 40 mg Cap-DR) Contact prescribing physician if questions or concerns Unchanged ondansetron (ondansetron 4 mg Tab) Contact prescribing (more content not included)... Normal [facility] Urology Office/Clinic Noteon 03-15-2024 Urology Office/Clinic Note Urology Office/Clinic Note Chief Complaint 6 month HPI Staff 73 yo female here for 6 mos f/up. Last seen by Shaye Pittman 09/09/23. Previous dx: recurrent UTI, urgency of urination, pneumaturia, UR, renal cyst, adrenal mass. Estrace cream, cranberry pills and probiotics. Dysuria: no Incomplete bladder emptying: no Hematuria: no Frequency: every couple hours Urgency: no Nocturia: occasionally Stream: good stream Post void dripping: no Wearing pads/ Depends: Pt. wears pull ups due to BM Urge incontinence: occasionally Stress incontinence: when Pt. coughs to much Incontinence without Sensory Awareness: no Abdominal pain: no Flank pain: no History of Present Illness Tests reviewed: none. I have reviewed the previous health record information and history for this patient from Shaye Pittman, NICOLA, HEALTH CARE RECRUITER I have reviewed and verified the staff [...] See HPI. Physical Exam Vitals & Measurements HT: 60 in HT: 153 cm WT: 61.2 kg WT: 134.923 lb BMI: 26.14 General Appearance: alert , no acute distress, well nourished, well developed female. On supplemental O2 Assessment/Plan Last seen by Shaye Pittman 09/09/23. Pt accompanied by daughter today. Here for f/u hx recurrent UTIs 1. Recurrent UTI (N39.0: Urinary tract infection, site not specified) S/p Cysto 02/22/23 - Difficult to view [...] with prolonged antibiotics of 2 weeks [1] Pt continues Estrace cream, cranberry pills and probiotics. No UA provided today. Denies infections since last visit. Asymptomatic today -Cont Estrace cream and OTC UTI preventatives -Pt to call if symptomatic of UTI and f/up as needed 2. Urgency of urination (R39.15: Urgency of urination) BBSQ 12 (16) Myrbetriq 50 mg ER was prescribed in the past however, patient never started medication as geriatric specialist was concerned about her polypharmacy. Reports frequency and urgency are not bothersome. Does not feel treatment is warranted. -Cont symptomatic monitoring, timed voids, avoid bladder irritants 3. Pneumaturia (R39.89: Other symptoms and signs involving the genitourinary system) Has been passing gas from either vagina or urethra, denies stool in urine. Usually right before or after she voids. Pt has had a large bowel resection from incarcerated hernia in the past. Denies diverticulitis, Crohn's/UC or prior radiation. S/p Cysto 02/22/23 - [...] antibiotics of 2 weeks. [2] Patient denies recurrence of pneumaturia. Denies stool in urine. -Cont symptomatic monitoring 4. Urinary retention (R33.9: Retention of urine, unspecified) Hx of UR. PVR 09/07/23 - 37 mL -Timed voids 5. Renal cyst (N28.1: Cyst of kidney, [...] eGFR 34. 11/24/22: Crea 1.83, eGFR 27 [3] -No further workup required for non enhancing lesion 6. Adrenal mass (E27.8: Other specified disorders of [...] x 3.5 cm slightly heterogenous right adrenal (more content not included)... Normal [facility] Comment on above: Result Comment: Elec tronically Signed By: Jacqui Michael MD\.br\Date and Time Signed: 03/15/24 16:02 EST\.br\Electronically Co-Signed By: Danielle Ramirez.br\Date and Time Co-Signed: 03/15/24 11:50 EST CBC AND AUTO DIFFon 12-03-19 ABSOLUTE BASOPHIL 0.1 X10E9/L Normal 0.0-0.2 [facility] Comment on above: Performed By: #### C BCA #### [facility] ([id number]) [address] [place] [address] 39714 ABSOLUTE NEUTROPHIL 5.3 X10E9/L Normal 1.5-6.6 [facility] Comment on above: Performed By: #### C BCA #### [facility] ([id number]) [address] [place] [address] 71815 Basophils/100 WBC (Bld) 0.6 % Normal [facility] Comment on above: Performed By: #### C BCA #### [facility] ([id number]) [address] [place] [address] 78756 Eosinophils (Bld) [#/Vol] 0.1 10*3/uL Normal 0.0-0.4 [facility] Comment on above: Performed By: #### C BCA #### [facility] ([id number]) [address] [place] [address] 55705 Eosinophils/100 WBC (Bld) 1.1 % Normal [facility] Comment on above: Performed By: #### C BCA #### [facility] ([id number]) [address] [place] [address] 95904 Erythrocyte distribution width (RBC) [Ratio] 15.4 % High 11.5-15.0 [facility] Comment on above: Performed By: #### C BCA #### [facility] ([id number]) [address] [place] [address] 15588 Hematocrit (Bld) [Volume fraction] 28.9 % Low 35-47 [facility] Comment on above: Performed By: #### C BCA #### [facility] ([id number]) [address] [place] [address] 93760 Hemoglobin (Bld) [Mass/Vol] 9.8 g/dL Low 11.7-15.5 [facility] Comment on above: Performed By: #### C BCA #### [facility] ([id number]) [address] [place] [address] 16429 Lymphocytes (Bld) [#/Vol] 2.7 10*3/uL Normal 1.0-3.5 [facility] Comment on above: Performed By: #### C BCA #### [facility] ([id number]) [address] [place] [address] 11224 Lymphocytes/100 WBC (Bld) 30.5 % Normal [facility] Comment on above: Performed By: #### C BCA #### [facility] ([id number]) [address] [place] [address] 74804 MCH (RBC) [Entitic mass] 30.8 pg Normal 27-34 [facility] Comment on above: Performed By: #### C BCA #### [facility] ([id number]) [address] [place] [address] 61967 MCHC (RBC) [Mass/Vol] 33.9 g/dL Normal 32-36 [facility] Comment on above: Performed By: #### C BCA #### [facility] ([id number]) [address] [place] [address] 46570 MCV (RBC) [Entitic vol] 91 fL Normal 80-100 [facility] Comment on above: Performed By: #### C BCA #### [facility] ([id number]) [address] [place] [address] 84553 Monocytes (Bld) [#/Vol] 0.6 10*3/uL Normal 0-0.9 [facility] Comment on above: Performed By: #### C BCA #### [facility] ([id number]) [address] [place] [address] 61191 Monocytes/100 WBC (Bld) 7.3 % Normal [facility] Comment on above: Performed By: #### C BCA #### [facility] ([id number]) [address] [place] [address] 75760 Neutrophils/100 WBC (Bld) 60.5 % Normal [facility] Comment on above: Performed By: #### C BCA #### [facility] ([id number]) [address] [place] [address] 29475 Platelet mean volume (Bld) [Entitic vol] 8.4 fL Normal 7-12 [facility] Comment on above: Performed By: #### C BCA #### [facility] ([id number]) [address] [place] [address] 70501 Platelets (Bld) [#/Vol] 210 10*3/uL Normal 150-450 [facility] Comment on above: Performed By: #### C BCA #### [facility] ([id number]) [address] [place] [address] 86921 RBC COUNT 3.18 X10E12/L Low 3.80-5.20 [facility] Comment on above: Performed By: #### C BCA #### [facility] ([id number]) [address] [place] [address] 61382 WBC (Bld) [#/Vol] 8.8 10*3/uL Normal 4.0-11.0 [facility] Comment on above: Performed By: #### C BCA #### [facility] ([id number]) [address] [place] [address] 45556 RENAL PANELon 12-03-2023 Albumin [Mass/Vol] 3.2 g/dL Normal 3.2-5.3 [facility] Comment on above: Performed By: #### R ENAL #### [facility] ([id number]) [address] [place] [address] 72213 Anion gap [Moles/Vol] 11 mmol/L Normal 5-15 [facility] Comment on above: Performed By: #### R ENAL #### [facility] ([id number]) [address] [place] [address] 92180 Calcium [Mass/Vol] 10.8 mg/dL High 8.5-10.5 [facility] Comment on above: Performed By: #### R ENAL #### [facility] ([id number]) [address] [place] [address], [place] [address] Chloride [Moles/Vol] 85 mmol/L Low 98-109 [facility] Comment on above: Performed By: #### R ENAL #### [facility] ([id number]) [address] [place] [address] 48306 CO2 [Moles/Vol] 39 mmol/L High 22-32 [facility] Comment on above: Performed By: #### R ENAL #### [facility] ([id number]) [address] [place] [address] 82501 Creatinine [Mass/Vol] 3.67 mg/dL High 0.40-1.00 [facility] Comment on above: Result Comment: METH OD TRACEABLE TO IDMS STANDARD Performed By: #### R ENAL #### [facility] ([id number]) [address] [place] [address] 63027 GFR/1.73 sq M.predicted among non-blacks MDRD (S/P/Bld) [Vol rate/Area] 12 mL/min/{1.73_m2} Low >59 [facility] Comment on above: Result Comment: Reported eGFR is based on the CKD-EPI 2020 equation that does not use a race coefficient. Performed By: #### R ENAL #### [facility] ([id number]) [address] [place] [address] 50110 Glucose [Mass/Vol] 127 mg/dL High 65-99 [facility] Comment on above: Performed By: #### R ENAL #### [facility] ([id number]) [address] [place] [address], [place] [address] Phosphate [Mass/Vol] 4.2 mg/dL Normal 2.4-4.9 [facility] Comment on above: Performed By: #### R ENAL #### [facility] ([id number]) [address] [place] [address], [place] [address] Potassium [Moles/Vol] 3.3 mmol/L Low 3.5-5.0 [facility] Comment on above: Performed By: #### R ENAL #### [facility] ([id number]) [address] [place] [address] 69100 Sodium [Moles/Vol] 135 mmol/L Normal 134-146 [facility] Comment on above: Performed By: #### R ENAL #### [facility] ([id number]) [address] [place] [address] [place] [address] Urea nitrogen [Mass/Vol] 46 mg/dL High 5-27 [facility] Comment on above: Performed By: #### R ENAL #### [facility] ([id number]) [address] [place] [address] 82863 Automated basophil %Ordered By: Nickie Clay on 11-11-2023 Basophils/100 WBC (Bld) 0.2 % . [facility] Comment on above: Performed By: #### G LULS #### Point of Care testing , Automated basophil countOrde red By: Nickie Clay on 11-11-2023 Basophils (Bld) [#/Vol] 0.0 10*3/uL 0.0-0.2 [facility] Comment on above: Result Comment: PERF ORMED BY: [facility] [place] [address] PATHOLOGIST MANAGER INVESTIGATIONS KOBE VENCES M.D. Performed By: #### G LULS #### Point of Care testing , Automated blood monocyte cou ntOrdered By: Nickie Clay on 11-11-2023 Monocytes (Bld) [#/Vol] 0.5 10*3/uL 0.0-0.8 [facility] Comment on above: Performed By: #### G LULS #### Point of Care testing , Automated eosinophil %Ordere d By: Nickie Clay on 11-11-2023 Eosinophils/100 WBC (Bld) 1.1 % . [facility] Comment on above: Performed By: #### G LULS #### Point of Care testing , Automated eosinophil countOr dered By: Nickie Clay on 11-11-2023 Eosinophils (Bld) [#/Vol] 0.1 10*3/uL 0.0-0.45 [facility] Comment on above: Performed By: #### G LULS #### Point of Care testing , Automated monocyte %Ordered By: Nickie Clay on 11-11-2023 Monocytes/100 WBC (Bld) 5.2 % . [facility] Comment on above: Performed By: #### G LULS #### Point of Care testing , Automated neutrophil %Ordere d By: Nickie Clay on 11-11-2023 Neutrophils/100 WBC (Bld) 80.3 % . [facility] Comment on above: Performed By: #### G LULS #### Point of Care testing , Basic Metabolic Panelon 10-31 Creatinine Clr Calc Pharmacy 24.21 Normal [facility] Comment on above: Performed By: #### C AION #### [facility] , #### HEPATIC, HS TROP, BMP, MG, PTT, CK, BNP, PT, CBC #### [address] GFR/1.73 sq M.predicted MDRD (S/P/Bld) [Vol rate/Area] 31.054 mL/min/{1.73_m2} Normal [facility] Comment on above: Performed By: #### C AION #### [facility] , #### HEPATIC, HS TROP, BMP, MG, PTT, CK, BNP, PT, CBC #### [facility] [address] Calcium [Mass/volume] in Ser um or PlasmaOrdered By: Gina Poole on 11-11-2023 Calcium [Mass/Vol] 7.5 mg/dL Low 8.6-10.3 [facility] Comment on above: Performed By: #### C AION #### [facility] , #### HEPATIC, HS TROP, BMP, MG, PTT, CK, BNP, PT, CBC #### [facility] [address] Carbon dioxide, total [Moles /volume] in Serum or PlasmaOrdered By: Gina Poole on 11-11-2023 CO2 [Moles/Vol] 31.6 mmol/L High 21.0-31.0 [facility] Comment on above: Performed By: #### C AION #### [facility] , #### HEPATIC, HS TROP, BMP, MG, PTT, CK, BNP, PT, CBC #### [facility] [address] Chloride [Moles/volume] in S arti or PlasmaOrdered By: Gina Poole on 11-11-2023 Chloride [Moles/Vol] 95 mmol/L Low 98-107 [facility] Comment on above: Performed By: #### C AION #### [facility] , #### HEPATIC, HS TROP, BMP, MG, PTT, CK, BNP, PT, CBC #### [facility] [address] Complete Blood Count Auto Di ffon 11-11-2023 Mean Corpuscular HGB Conc 33.5 g/dL Normal 32.0-35.0 [facility] Comment on above: Performed By: #### G LULS #### Point of Care testing , NRBC% 0.0 /100{WBC} Normal 0-0.5 [facility] Comment on above: Performed By: #### G TASHA #### Point of Care testing , Creatinine [Mass/volume] in Serum or PlasmaOrdered By: Gina Poole on 11-11-2023 Creatinine [Mass/Vol] 1.71 mg/dL High 0.60-1.20 [facility] Comment on above: Performed By: #### C AION #### [facility] , #### HEPATIC, HS TROP, BMP, MG, PTT, CK, BNP, PT, CBC #### [facility] [address] Erythrocyte distribution wid th [Ratio] by Automated countOrdered By: Nickie Clay on 11-11-2023 Erythrocyte distribution width (RBC) [Ratio] 17.3 % High 11.9-15.3 [facility] Comment on above: Performed By: #### G TASHA #### Point of Care testing , Erythrocytes [#/volume] in B lood by Automated countOrdered By: Nickie Clay on 11-11-2023 RBC (Bld) [#/Vol] 3.19 10*6/uL Low 3.60-5.00 [facility] Comment on above: Performed By: #### G TASHA #### Point of Care testing , Glucose [Mass/volume] in Ser um or PlasmaOrdered By: Gina Poole on 11-11-2023 Glucose [Mass/Vol] 110 mg/dL High 70-100 [facility] Comment on above: ADA recommended refe rence rangeRandom Glucose Reference Range is dependent on time and content of last meal. Glucose of more than 200 mg/dL in a nonstressed, ambulatory subject supports the diagnosis of Diabetes Mellitus. Result Comment: [place] om Glucose Reference Range is dependent on time and content of last meal. Glucose of more than 200 mg/dL in a nonstressed, ambulatory subject supports the diagnosis of Diabetes Mellitus. ADA recommended reference range Performed By: #### C AION #### [facility] , #### HEPATIC, HS TROP, BMP, MG, PTT, CK, BNP, PT, CBC #### [facility] [address] [place] [id number] [facility] Hematocrit [Volume Fraction] of Blood by Automated countOrdered By: Nickie Clay on 11-11-2023 Hematocrit (Bld) [Volume fraction] 29.1 % Low 34.0-46.4 [facility] Comment on above: Performed By: #### G LULS #### Point of Care testing , Hemoglobin [Mass/volume] in BloodOrdered By: Nickie Clay on 11-11-2023 Hemoglobin (Bld) [Mass/Vol] 9.8 g/dL Low 11.8-15.4 [facility] Comment on above: Performed By: #### G LULS #### Point of Care testing , Leukocytes [#/volume] correc loan for nucleated erythrocytes in Blood by Automated counOrdered By: Nickie Clay on 11-11-2023 WBC corrected for nucl RBC Auto (Bld) [#/Vol] 9.3 10*3/uL 3.8-11.6 [facility] Leukocytes [#/volume] in Blo od by Automated countOrdered By: Nickie Clay on 11-11-2023 WBC (Bld) [#/Vol] 9.3 10*3/uL 3.8-11.6 [facility] Comment on above: Performed By: #### G LULS #### Point of Care testing , Lymphocytes [#/volume] in Bl ood by Automated countOrdered By: Nickie Clay on 11-11-2023 Lymphocytes (Bld) [#/Vol] 1.2 10*3/uL 1.00-4.8 [facility] Comment on above: Performed By: #### G LULS #### Point of Care testing , Lymphocytes/100 leukocytes i n Blood by Automated countOrdered By: Nickie Clay on 11-11-2023 Lymphocytes/100 WBC (Bld) 13.2 % . [facility] Comment on above: Performed By: #### G LULS #### Point of Care testing , MCH [Entitic mass] by [employer] loan countOrdered By: Nickie Clay on 11-11-2023 MCH (RBC) [Entitic mass] 30.6 pg 24.7-34.3 [facility] Comment on above: Performed By: #### G LULS #### Point of Care testing , MCHC Auto (RBC) [Mass/Vol]Or dered By: Nickie Clay on 11-11-2023 MCHC (RBC) [Mass/Vol] 33.5 g/dL 32.0-35.0 [facility] MCV [Entitic volume] by Auto mated countOrdered By: Nickie Clay on 11-11-2023 MCV (RBC) [Entitic vol] 91.4 fL 80-100 [facility] Comment on above: Performed By: #### G LULS #### Point of Care testing , Magnesium [Mass/volume] in S arti or PlasmaOrdered By: Gina Poole on 11-11-2023 Magnesium [Mass/Vol] 2.0 mg/dL 1.9-2.7 [facility] Comment on above: Result Comment: PERF ORMED BY: [place] [address] PATHOLOGIST MANAGER INVESTIGATIONS KOBE VENCES M.D. Performed By: #### C AION #### [facility] , #### HEPATIC, HS TROP, BMP, MG, PTT, CK, BNP, PT, CBC #### [address] Neutrophils [#/volume] in Bl ood by Automated countOrdered By: Nickie Clay on 11-11-2023 Neutrophils (Bld) [#/Vol] 7.5 10*3/uL 1.8-7.7 [facility] Comment on above: Performed By: #### G LULS #### Point of Care testing , No Panel InformationOrdered By: Gina Poole on 11-11-2023 Estimated GFR (CKD-EPI) 31.054 mL/Min [facility] Creatinine Clearance (Chem 24.21 [facility] Nucleated erythrocytes [Pres ence] in Blood by Automated countOrdered By: Nickie Clay on 11-11-2023 Nucleated RBC Auto Ql (Bld) 0.0 /100{WBC} 0-0.5 [facility] Phosphate [Mass/volume] in S arti or PlasmaOrdered By: Gina Poloe on 11-11-2023 Phosphate [Mass/Vol] 4.8 mg/dL High 2.5-4.5 [facility] Comment on above: Performed By: #### C AION #### [facility] , #### HEPATIC, HS TROP, BMP, MG, PTT, CK, BNP, PT, CBC #### [facility] [address] Platelet mean volume [Entiti c volume] in Blood by Automated countOrdered By: Nickie Clay on 11-11-2023 Platelet mean volume (Bld) [Entitic vol] 7.3 fL 6.3-10.7 [facility] Comment on above: Performed By: #### G LULS #### Point of Care testing , Platelets [#/volume] in Bloo d by Automated countOrdered By: Nickie Clay on 11-11-2023 Platelets (Bld) [#/Vol] 139 10*3/uL Low 150-450 [facility] Comment on above: Performed By: #### G LUBALDEMAR #### Point of Care testing , Potassium [Moles/volume] in Serum or PlasmaOrdered By: Gina Poole on 11-11-2023 Potassium [Moles/Vol] 4.0 mmol/L 3.5-5.1 [facility] Comment on above: Performed By: #### C AION #### [facility] , #### HEPATIC, HS TROP, BMP, MG, PTT, CK, BNP, PT, CBC #### [facility] [address] Serum or plasma anion gap de terminationOrdered By: Gina Poole on 11-11-2023 Anion gap [Moles/Vol] 16.4 mmol/L High 6.0-15.0 [facility] Comment on above: Performed By: #### C AION #### [facility] , #### HEPATIC, HS TROP, BMP, MG, PTT, CK, BNP, PT, CBC #### [facility] [address] [place] [address] [place] Sodium [Moles/volume] in Ser um or PlasmaOrdered By: Gina Poole on 11-11-2023 Sodium [Moles/Vol] 139 mmol/L 136-145 [facility] Comment on above: Performed By: #### C AION #### [facility] , #### HEPATIC, HS TROP, BMP, MG, PTT, CK, BNP, PT, CBC #### [facility] [address] [place] [address] [place] Urea nitrogen [Mass/volume] in Serum or PlasmaOrdered By: Gina Poole on 11-11-2023 Urea nitrogen [Mass/Vol] 35 mg/dL High 7-25 [facility] Comment on above: Performed By: #### C AION #### [facility] , #### HEPATIC, HS TROP, BMP, MG, PTT, CK, BNP, PT, CBC #### [facility] [address] Alanine aminotransferase [En zymatic activity/volume] in Serum or PlasmaOrdered By: Gina Poole on 11-10-2023 ALT [Catalytic activity/Vol] 23 U/L 7-52 [facility] Comment on above: Performed By: #### G LULS #### Point of Care testing , Albumin [Mass/volume] in Ser um or Plasma by Bromocresol green (BCG) dye binding methoOrdered By: Gina Poole on 11-10-2023 Albumin BCG dye [Mass/Vol] 3.2 g/dL Low 3.5-5.7 [facility] Alkaline phosphatase [Enzyma tic activity/volume] in Serum or PlasmaOrdered By: Gina Poole on 11-10-2023 ALP [Catalytic activity/Vol] 47 U/L 34-104 [facility] Comment on above: Performed By: #### G LULS #### Point of Care testing , Aspartate aminotransferase [ Enzymatic activity/volume] in Serum or PlasmaOrdered By: Gina Poole on 11-10-2023 AST [Catalytic activity/Vol] 20 U/L 13-39 [facility] Comment on above: Performed By: #### G LULS #### Point of Care testing , Bilirubin.total [Mass/volume ] in Serum or PlasmaOrdered By: Gina Poole on 11-10-2023 Bilirubin [Mass/Vol] 0.6 mg/dL 0.3-1.0 [facility] Comment on above: Performed By: #### G LULS #### Point of Care testing , Capillary blood glucose hakeem urement by glucometer (mass/volume)Ordered By: Gina Poole on 11-10-2023 Glucose [Mass/Vol] 129 mg/dL [facility] Comment on above: Random Glucose Refer ence Range is dependent on time and content of last meal. Glucose of more than 200 mg/dL in a nonstressed, ambulatory subject supports the diagnosis of Diabetes Mellitus. Result Comment: [place] om Glucose Reference Range is dependent on time and content of last meal. Glucose of more than 200 mg/dL in a nonstressed, ambulatory subject supports the diagnosis of Diabetes Mellitus. PERFORMED BY: [facility] [address] [place] [address] PATHOLOGIST MANAGER INVESTIGATIONS KOBE VENCES M.D. Performed By: #### G DANIELALS #### Point of Care testing , Comprehensive Metabolic Pane marky 11-10-2023 Albumin [Mass/Vol] 3.2 g/dL Low 3.5-5.7 [facility] Comment on above: Performed By: #### G LULS #### Point of Care testing , Anion gap [Moles/Vol] 14.9 mmol/L Normal 6.0-15.0 [facility] Comment on above: Performed By: #### G LULS #### Point of Care testing , Calcium [Mass/Vol] 6.1 mg/dL Off scale low 8.6-10.3 [facility] Comment on above: Result Comment: Crit ical Result Called to and read back by: NOT FIRST TIME CRITICAL at: 11/10/2023 07:06:15 by:[id number] Performed By: #### G LULS #### Point of Care testing , Chloride [Moles/Vol] 93 mmol/L Low 98-107 [facility] Comment on above: Performed By: #### G LULS #### Point of Care testing , CO2 [Moles/Vol] 32.8 mmol/L High 21.0-31.0 [facility] Comment on above: Performed By: #### G LULS #### Point of Care testing , Creatinine [Mass/Vol] 1.98 mg/dL High 0.60-1.20 [facility] Comment on above: Performed By: #### G LULS #### Point of Care testing , Creatinine Clr Calc Pharmacy 20.86 Normal [facility] Comment on above: Performed By: #### G LULS #### Point of Care testing , GFR/1.73 sq M.predicted MDRD (S/P/Bld) [Vol rate/Area] 26.045 mL/min/{1.73_m2} Normal [facility] Comment on above: Performed By: #### G LULS #### Point of Care testing , Glucose [Mass/Vol] 106 mg/dL High 70-100 [facility] Comment on above: Result Comment: [place] Glucose Reference Range is dependent on time and content of last meal. Glucose of more than 200 mg/dL in a nonstressed, ambulatory subject supports the diagnosis of Diabetes Mellitus. ADA recommended reference range Performed By: #### G LULS #### Point of Care testing , Potassium [Moles/Vol] 3.7 mmol/L Normal 3.5-5.1 [facility] Comment on above: Performed By: #### G LULS #### Point of Care testing , Sodium [Moles/Vol] 137 mmol/L Normal 136-145 [facility] Comment on above: Performed By: #### G LULS #### Point of Care testing , Urea nitrogen [Mass/Vol] 36 mg/dL High 7-25 [facility] Comment on above: Performed By: #### G LULS #### Point of Care testing , Creatinine [Mass/volume] in UrineOrdered By: Shalonda Pearson on 11-10-2023 Creatinine (U) [Mass/Vol] 47.00 mg/dL [facility] Comment on above: No reference range e stablished Creatinine, Urine (Random)on 11-10-2023 Creatinine, Urine (Random) 47.00 mg/dL Normal [facility] Comment on above: Result Comment: No r eference range established PERFORMED BY: [place] [address] PATHOLOGIST MANAGER INVESTIGATIONS KOBE VENCES M.D. Performed By: #### U CREA ####[facility] [id number]#### UMANGANESE ####[facility] , Ferritin [Mass/volume] in Se rum or PlasmaOrdered By: Shalonda Pearson on 11-10-2023 Ferritin [Mass/Vol] 822.6 ng/mL High 11.0-306.8 [facility] Comment on above: Performed By: #### C AION #### [facility] , #### HEPATIC, HS TROP, BMP, MG, PTT, CK, BNP, PT, CBC #### [facility] [address] Iron [Mass/volume] in Serum or PlasmaOrdered By: Shalonda Pearson on 11-10-2023 Iron [Mass/Vol] 14 ug/dL Low 50-212 [facility] Comment on above: Performed By: #### G LULS #### Point of Care testing , Iron and TIBC Profileon 10-31 % Iron Saturation 6.8 % Low 20-50 [facility] Comment on above: Performed By: #### G LULS #### Point of Care testing , Total Iron Binding Capacity 207 ug/dL Low 255-450 [facility] Comment on above: Performed By: #### G LULS #### Point of Care testing , Iron binding capacity [Mass/ volume] in Serum or PlasmaOrdered By: Shalonda Pearson on 11-10-2023 Iron binding capacity [Mass/Vol] 207 ug/dL Low 255-450 [facility] Iron saturation [Mass Fracti on] in Serum or PlasmaOrdered By: Shalonda Pearson on 11-10-2023 Iron saturation [Mass fraction] 6.8 % Low 20-50 [facility] Magnesiumon 11-10-2023 Magnesium [Mass/Vol] 1.6 mg/dL Low 1.9-2.7 [facility] Comment on above: Performed By: #### G LULS #### Point of Care testing , Manganese Urine, randomon Creat [place] Urine Mangese 0.46 Normal 0.30-3.00 [facility] Comment on above: Result Comment: Dete ction Limit = 0.10 Performed By: #### U CREA ####[place] [id number] [address]#### UMANGANESE ####[facility] , Manganese Creat Ratio <5.4 Normal . [facility] Comment on above: Result Comment: Envi ronmental Exposure:<3.0 Performed at: [address] [id number] Environmental Technology Professor: Jeff Hubbard MD, Phone: [phone] PERFORMED BY: [facility] [address] [place] [address] PATHOLOGIST MANAGER INVESTIGATIONS KOBE VENCES M.D. Performed By: #### U CREA ####[address]#### UMANGANESE ####[facility] , Manganese Urine <2.5 Normal 0.0-2.9 [facility] Comment on above: Result Comment: This test was developed and its performance characteristics [facility] It has not been cleared or approved by the Food and Drug Administration. Detection Limit = 2.5 Performed By: #### U CREA ####[address]#### UMANGANESE ####[facility] , No Panel InformationOrdered By: Shalonda Pearson on 11-10-2023 Urine Manganese ug/gm Creatinine 0.46 g/L 0.30-3.00 [facility] Comment on above: Detection Limit = 0. 10 Phosphoruson 11-10-2023 Phosphate [Mass/Vol] 5.4 mg/dL High 2.5-4.5 [facility] Comment on above: Performed By: #### G LULS #### Point of Care testing , Protein [Mass/volume] in Ser um or PlasmaOrdered By: Gina Poole on 11-10-2023 Protein [Mass/Vol] 6.0 g/dL Low 6.4-8.9 [facility] Comment on above: Performed By: #### G LULS #### Point of Care testing , Serum globulin measurement b y calculation (mass/volume)Ordered By: Gina Poole on 11-10-2023 Globulin (S) [Mass/Vol] 2.8 g/dL [facility] Comment on above: Performed By: #### G LULS #### Point of Care testing , Serum or plasma 25-hydroxyca lciferol measurement (mass/volume)Ordered By: Gina Poole on 11-10-2023 25-hydroxyvitamin D2 [Mass/Vol] <1.0 ng/mL . [facility] Comment on above: This test was develo ped and its performance characteristicsdetermined by [facility]. It has not been cleared or approvedby the Food and Drug Administration. Serum or plasma 25-hydroxyvi tamin D measurement (mass/volume)Ordered By: Gina Poole on 11-10-2023 25-hydroxyvitamin D [Mass/Vol] 33 ng/mL . [facility] Comment on above: Reference Range:All Ages: Target levels 30 - 100 Serum or plasma albumin/glob ulin mass ratioOrdered By: Gina Poole on 11-10-2023 Albumin/Globulin [Mass ratio] 1.1 {ratio} [facility] Comment on above: Performed By: #### G LULS #### Point of Care testing , Serum or plasma calcidiol me asurement (mass/volume)Ordered By: Gina Poole on 11-10-2023 25-hydroxyvitamin D3 [Mass/Vol] 33 ng/mL . [facility] Comment on above: This test was develo ped and its performance characteristicsdetermined by [facility]. It has not been cleared or approvedby the Food and Drug Administration.Performed at: [facility] [address] [place], [place] [id number] Director: Kingsley Pederson MD, Phone: [phone] Transferrin [Mass/volume] in Serum or PlasmaOrdered By: Shalonda Pearson on 11-10-2023 Transferrin [Mass/Vol] 148 mg/dL Low 203-362 [facility] Comment on above: Performed By: #### G LULS #### Point of Care testing , Urine manganese measurement (mass/volume)Ordered By: Shalonda Pearson on 11-10-2023 Manganese (U) [Mass/Vol] <2.5 ug/L 0.0-2.9 [facility] Comment on above: This test was develo ped and its performance characteristicsdetermined by [facility]. It has not been cleared orapproved by the Food and Drug Administration. Detection Limit = 2.5 Urine manganese/creatinine m ass ratioOrdered By: Shalonda Pearson on 11-10-2023 Manganese/Creatinine (U) [Mass ratio] <5.4 ug/g creat . [facility] Comment on above: Environmental Exposu re:<3.0Performed at: [facility] [id number] Director: Jeff Hubbard MD, Phone: [phone] Vitamin B12 ser/plasOrdered By: Shalonda Pearson on 11-10-2023 Cobalamin (Vitamin B12) [Mass/Vol] 320 pg/mL 180-914 [facility] Comment on above: Result Comment: PERF ORMED BY: [address] [place] [address] PATHOLOGIST MANAGER INVESTIGATIONS KOBE VENCES M.D. Performed By: #### C AION #### [facility] , #### HEPATIC, HS TROP, BMP, MG, PTT, CK, BNP, PT, CBC #### [address] Vitamin D 25 Hydroxy,Tot+D2+ D3on 11-10-2023 Lab [facility] Vitamin D 25 [place] 33 ng/mL Normal . [facility] Comment on above: Result Comment: Sanket castaneda Range: All Ages: Target levels 30 - 100 Performed By: #### C AION #### [facility] , #### HEPATIC, HS TROP, BMP, MG, PTT, CK, BNP, PT, CBC #### [address] Vitamin D-2 <1.0 Normal . [facility] Comment on above: Result Comment: This test was developed and its performance characteristics determined by [facility]. It has not been cleared or approved by the Food and Drug Administration. Performed By: #### C AION #### [facility] , #### HEPATIC, HS TROP, BMP, MG, PTT, CK, BNP, PT, CBC #### [address] Vitamin D-3 33 ng/mL Normal . [facility] Comment on above: Result Comment: This test was developed and its performance characteristics determined by [facility]. It has not been cleared or approved by the Food and Drug Administration. Performed at: [facility] [address] [place] [id number] Environmental Technology Professor: Kingsley Pederson MD, Phone: [phone] PERFORMED BY: [place] [address] PATHOLOGIST MANAGER INVESTIGATIONS KOBE VENCES M.D. Performed By: #### C AION #### [facility] , #### HEPATIC, HS TROP, BMP, MG, PTT, CK, BNP, PT, CBC #### [address] Basic Metabolic Panelon Anion gap [Moles/Vol] 13.6 mmol/L Normal 6.0-15.0 [facility] Comment on above: Performed By: #### G LULS #### Point of Care testing , Calcium [Mass/Vol] 4.7 mg/dL Off scale low 8.6-10.3 [facility] Comment on above: Result Comment: Crit ical Result Called to and read back by: VINH CONLEY at: 11/09/2023 07:53:34 by:[id number] Performed By: #### G LULS #### Point of Care testing , Chloride [Moles/Vol] 92 mmol/L Low 98-107 [facility] Comment on above: Performed By: #### G LULS #### Point of Care testing , CO2 [Moles/Vol] 34.7 mmol/L High 21.0-31.0 [facility] Comment on above: Performed By: #### G LULS #### Point of Care testing , Creatinine [Mass/Vol] 2.04 mg/dL High 0.60-1.20 [facility] Comment on above: Performed By: #### G LULS #### Point of Care testing , Creatinine Clr Calc Pharmacy 20.88 Normal [facility] Comment on above: Performed By: #### G LULS #### Point of Care testing , GFR/1.73 sq M.predicted MDRD (S/P/Bld) [Vol rate/Area] 25.128 mL/min/{1.73_m2} Normal [facility] Comment on above: Performed By: #### G LULS #### Point of Care testing , Glucose [Mass/Vol] 83 mg/dL Normal 70-100 [facility] Comment on above: Result Comment: [place] Glucose Reference Range is dependent on time and content of last meal. Glucose of more than 200 mg/dL in a nonstressed, ambulatory subject supports the diagnosis of Diabetes Mellitus. ADA recommended reference range Performed By: #### G LULS #### Point of Care testing , Potassium [Moles/Vol] 3.3 mmol/L Low 3.5-5.1 [facility] Comment on above: Performed By: #### G LULS #### Point of Care testing , Sodium [Moles/Vol] 137 mmol/L Normal 136-145 [facility] Comment on above: Performed By: #### G LULS #### Point of Care testing , Urea nitrogen [Mass/Vol] 38 mg/dL High 7-25 [facility] Comment on above: Performed By: #### G LULS #### Point of Care testing , Complete Blood Count Auto Di ffon 11-09-2023 Basophils (Bld) [#/Vol] 0.0 10*3/uL Normal 0.0-0.2 [facility] Comment on above: Result Comment: PERF ORMED BY: [facility] [place] [address] PATHOLOGIST MANAGER INVESTIGATIONS KOBE VENCES M.D. Performed By: #### G LULS #### Point of Care testing , Basophils/100 WBC (Bld) 0.1 % Normal . [facility] Comment on above: Performed By: #### G LULS #### Point of Care testing , Eosinophils (Bld) [#/Vol] 0.3 10*3/uL Normal 0.0-0.45 [facility] Comment on above: Performed By: #### G LULS #### Point of Care testing , Eosinophils/100 WBC (Bld) 2.4 % Normal . [facility] Comment on above: Performed By: #### G LULS #### Point of Care testing , Erythrocyte distribution width (RBC) [Ratio] 17.2 % High 11.9-15.3 [facility] Comment on above: Performed By: #### G LULS #### Point of Care testing , Hematocrit (Bld) [Volume fraction] 30.1 % Low 34.0-46.4 [facility] Comment on above: Performed By: #### G LULS #### Point of Care testing , Hemoglobin (Bld) [Mass/Vol] 9.9 g/dL Low 11.8-15.4 [facility] Comment on above: Performed By: #### G LULS #### Point of Care testing , Lymphocytes (Bld) [#/Vol] 1.9 10*3/uL Normal 1.00-4.8 [facility] Comment on above: Performed By: #### G LULS #### Point of Care testing , Lymphocytes/100 WBC (Bld) 15.5 % Normal . [facility] Comment on above: Performed By: #### G LULS #### Point of Care testing , MCH (RBC) [Entitic mass] 30.1 pg Normal 24.7-34.3 [facility] Comment on above: Performed By: #### G LULS #### Point of Care testing , MCV (RBC) [Entitic vol] 91.4 fL Normal 80-100 [facility] Comment on above: Performed By: #### G LULS #### Point of Care testing , Mean Corpuscular HGB Conc 33.0 g/dL Normal 32.0-35.0 [facility] Comment on above: Performed By: #### G LULS #### Point of Care testing , Monocytes (Bld) [#/Vol] 0.8 10*3/uL Normal 0.0-0.8 [facility] Comment on above: Performed By: #### G LULS #### Point of Care testing , Monocytes/100 WBC (Bld) 6.1 % Normal . [facility] Comment on above: Performed By: #### G LULS #### Point of Care testing , Neutrophils (Bld) [#/Vol] 9.4 10*3/uL High 1.8-7.7 [facility] Comment on above: Performed By: #### G LULS #### Point of Care testing , Neutrophils/100 WBC (Bld) 75.9 % Normal . [facility] Comment on above: Performed By: #### G LULS #### Point of Care testing , NRBC% 0.1 /100{WBC} Normal 0-0.5 [facility] Comment on above: Performed By: #### G LULS #### Point of Care testing , Platelet mean volume (Bld) [Entitic vol] 7.4 fL Normal 6.3-10.7 [facility] Comment on above: Performed By: #### G LULS #### Point of Care testing , Platelets (Bld) [#/Vol] 163 10*3/uL Normal 150-450 [facility] Comment on above: Performed By: #### G TASHA #### Point of Care testing , RBC (Bld) [#/Vol] 3.30 10*6/uL Low 3.60-5.00 [facility] Comment on above: Performed By: #### G LULS #### Point of Care testing , WBC (Bld) [#/Vol] 12.4 10*3/uL High 3.8-11.6 [facility] Comment on above: Performed By: #### G TASHA #### Point of Care testing , Comprehensive Metabolic Pane marky 11-09-2023 Albumin [Mass/Vol] 3.2 g/dL Low 3.5-5.7 [facility] Comment on above: Performed By: #### C MP, PHOS, MG ####[place] [id number] [address] Albumin/Globulin [Mass ratio] 1.1 {ratio} Normal [facility] Comment on above: Performed By: #### C MP, PHOS, MG ####[place] [id number] [place] [id number] [facility] ALP [Catalytic activity/Vol] 48 U/L Normal 34-104 [facility] Comment on above: Performed By: #### C MP, PHOS, MG ####[place] [id number] [facility] ALT [Catalytic activity/Vol] 24 U/L Normal 7-52 [facility] Comment on above: Performed By: #### C MP, PHOS, MG ####[place] [id number] [facility] Anion gap [Moles/Vol] 13.8 mmol/L Normal 6.0-15.0 [facility] Comment on above: Performed By: #### C MP, PHOS, MG ####[place] [id number] [place] [id number] [facility] AST [Catalytic activity/Vol] 21 U/L Normal 13-39 [facility] Comment on above: Performed By: #### C MP, PHOS, MG ####[address] Bilirubin [Mass/Vol] 0.4 mg/dL Normal 0.3-1.0 [facility] Comment on above: Performed By: #### C MP, PHOS, MG ####[address] Calcium [Mass/Vol] 5.2 mg/dL Off scale low 8.6-10.3 [facility] Comment on above: Result Comment: Crit ical Result Called to and read back by: NOT FIRST CRITICAL at: 11/09/2023 14:26:59 by:NICO Performed By: #### C MP, PHOS, MG ####[address] Chloride [Moles/Vol] 92 mmol/L Low 98-107 [facility] Comment on above: Performed By: #### C MP, PHOS, MG ####[address] CO2 [Moles/Vol] 32.6 mmol/L High 21.0-31.0 [facility] Comment on above: Performed By: #### C MP, PHOS, MG ####[address] Creatinine [Mass/Vol] 1.82 mg/dL High 0.60-1.20 [facility] Comment on above: Performed By: #### C MP, PHOS, MG ####[address] Creatinine Clr Calc Pharmacy 23.40 Normal [facility] Comment on above: Performed By: #### C MP, PHOS, MG ####[address] GFR/1.73 sq M.predicted MDRD (S/P/Bld) [Vol rate/Area] 28.815 mL/min/{1.73_m2} Normal [facility] Comment on above: Performed By: #### C MP, PHOS, MG ####[place] [phone] [facility] Globulin (S) [Mass/Vol] 2.8 g/dL Normal [facility] Comment on above: Performed By: #### C MP, PHOS, MG ####[place] [phone] [facility] Glucose [Mass/Vol] 117 mg/dL High 70-100 [facility] Comment on above: Result Comment: [facility] Glucose Reference Range is dependent on time and content of last meal. Glucose of more than 200 mg/dL in a nonstressed, ambulatory subject supports the diagnosis of Diabetes Mellitus. ADA recommended reference range Performed By: #### C MP PHOS, MG ####[place] [id number] [facility] Potassium [Moles/Vol] 3.4 mmol/L Low 3.5-5.1 [facility] Comment on above: Performed By: #### C MP PHOS, MG ####[place] [phone] [facility] Protein [Mass/Vol] 6.0 g/dL Low 6.4-8.9 [facility] Comment on above: Performed By: #### C MP PHOS, MG ####[place] [phone] [facility] Sodium [Moles/Vol] 135 mmol/L Low 136-145 [facility] Comment on above: Performed By: #### C MP PHOS, MG ####[place] [phone] [facility] Urea nitrogen [Mass/Vol] 36 mg/dL High 7-25 [facility] Comment on above: Performed By: #### C MP, PHOS, MG ####[place] [id number] [facility] ECG 12 lead ECGon 11-09-2023 ECG 12 lead ECG [facility] [address] [place] [address] [place] [address] Electrocardiograph Report Signed Patient: Kate Hagen MR#: [id number] 52 : 1950 Acct:[id number] Age/Sex: 72 / F ADM Date: 11/08/23 Loc: Room: [address] [place] [address] Type: ADM IN Attending Dr: Gina Poole DO Ordering Provider: Gina Poole DO Date of Service: 11/09/2301/24/1321 ECG/ECG 12 lead ECG: hypocalcema Copies to: Test Reason : Blood Pressure : / mmHG Vent. Rate : 068 BPM Atrial Rate : 068 BPM P-R Int : 146 ms QRS Dur : 072 ms QT Int : 468 ms P-R-T Axes : 039 035 032 degrees QTc Int : 497 ms Normal sinus rhythm Prolonged QT peaked T wave , consider hyperkalemia Abnormal ECG Confirmed by CAM XIE [facility], [place] ([id number]) on 11/09/2023 4:26:03 PM Referred By: Electronically Signed By:COLIN LEVY MD [facility] Transcribed By: MUS Signed By Colin Levy MD, [facility] 11/09/23 1626 Normal [facility] Glucose Poct Glucometerson 0 11-09-2023 Glucose [Mass/Vol] 120 mg/dL Normal [facility] Comment on above: Result Comment: [facility] Glucose Reference Range is dependent on time and content of last meal. Glucose of more than 200 mg/dL in a nonstressed, ambulatory subject supports the diagnosis of Diabetes Mellitus. PERFORMED BY: [place] [address] PATHOLOGIST MANAGER INVESTIGATIONS KOBE VENCES M.D. Performed By: #### C AION #### [facility] , #### HEPATIC, HS TROP, BMP, MG, PTT, CK, BNP, PT, CBC #### [address] Glucose [Mass/Vol] 156 mg/dL Normal [facility] Comment on above: Result Comment: [facility] Glucose Reference Range is dependent on time and content of last meal. Glucose of more than 200 mg/dL in a nonstressed, ambulatory subject supports the diagnosis of Diabetes Mellitus. PERFORMED BY: [place] [phone] PATHOLOGIST MANAGER INVESTIGATIONS KOBE VENCES M.D. Performed By: #### G LULS #### Point of Care testing , Glucose [Mass/Vol] 140 mg/dL Normal [facility] Comment on above: Result Comment: [place] [facility] Glucose Reference Range is dependent on time and content of last meal. Glucose of more than 200 mg/dL in a nonstressed, ambulatory subject supports the diagnosis of Diabetes Mellitus. PERFORMED BY: [place] [phone] PATHOLOGIST MANAGER INVESTIGATIONS KOBE VENCES M.D. Performed By: #### C AION #### [facility] , #### HEPATIC, HS TROP, BMP, MG, PTT, CK, BNP, PT, CBC #### [address] Glucose [Mass/Vol] 114 mg/dL Normal [facility] Comment on above: Result Comment: [place] [facility] Glucose Reference Range is dependent on time and content of last meal. Glucose of more than 200 mg/dL in a nonstressed, ambulatory subject supports the diagnosis of Diabetes Mellitus. PERFORMED BY: [place] [phone] PATHOLOGIST MANAGER INVESTIGATIONS KOBE VENCES M.D. Performed By: #### C AION #### [facility] , #### HEPATIC, HS TROP, BMP, MG, PTT, CK, BNP, PT, CBC #### [facility] [address] [place] [address] Magnesiumon 11-09-2023 Magnesium [Mass/Vol] 1.8 mg/dL Low 1.9-2.7 [facility] Comment on above: Result Comment: PERF ORMED BY: [place] [phone] PATHOLOGIST MANAGER INVESTIGATIONS KOBE VENCES M.D. Performed By: #### C MP, PHOS, MG ####[facility] [address] [place] [address] Magnesium [Mass/Vol] 1.3 mg/dL Low 1.9-2.7 [facility] Comment on above: Result Comment: PERF ORMED BY: [address] [place] [address] PATHOLOGIST MANAGER INVESTIGATIONS KOBE VENCES M.D. Performed By: #### B MP, MG, PHOS, CBC ####[address] Parathyrin.intact [Mass/volu me] in Serum or PlasmaOrdered By: Gina Poole on 11-09-2023 Parathyrin.intact [Mass/Vol] 524.0 pg/mL High [facility] Parathyroid Hormone Intacton 11-09-2023 Parathyroid Hormone Intact 524.0 pg/mL High [facility] Comment on above: Order Comment: Comme nt add on to AM labs Result Comment: PERF ORMED BY: [address] [place] [address] PATHOLOGIST MANAGER INVESTIGATIONS KOBE VENCES M.D. Performed By: #### C AION #### [facility] , #### HEPATIC, HS TROP, BMP, MG, PTT, CK, BNP, PT, CBC #### [facility] [address] [place] [address] Phosphoruson 11-09-2023 Phosphate [Mass/Vol] 5.8 mg/dL High 2.5-4.5 [facility] Comment on above: Performed By: #### C MP, PHOS, MG ####[address] Phosphate [Mass/Vol] 6.2 mg/dL High 2.5-4.5 [facility] Comment on above: Performed By: #### G LULS #### Point of Care testing , Urate [Mass/volume] in Serum or PlasmaOrdered By: Gina Poole on 11-09-2023 Urate [Mass/Vol] 8.1 mg/dL High 2.3-6.6 [facility] Comment on above: Order Comment: Comme nt add on to AM labs Performed By: #### C AION #### [facility] , #### HEPATIC, HS TROP, BMP, MG, PTT, CK, BNP, PT, CBC #### [facility] [address] Vitamin D 25 Hydroxy Totalon 11-09-2023 Vitamin D 25 Hydroxy Total 49.7 ng/mL Normal 30-100 [facility] Comment on above: Order Comment: Comme nt add on to AM labs Result Comment: MIKE MIN D STATUS 25(OH)VITAMIN D RANGE (ng/mL) Deficient <20 Insufficient 20 to <30 Sufficient 30 to 100 Reference: Charity Ness, Soo ROUSE, et al. Evaluation,treatment, and prevention of vitamin D deficiency; an Endocrine Society clinical practice guideline. JCEM. 2010; 96(7):1911-. PERFORMED BY: [place] [address] PATHOLOGIST MANAGER INVESTIGATIONS KOBE VENCES M.D. Performed By: #### C AION #### [facility] , #### HEPATIC, HS TROP, BMP, MG, PTT, CK, BNP, PT, CBC #### [address] Vitamin D+Metabolites [Mass/ volume] in Serum or PlasmaOrdered By: Gina Poole on 11-09-2023 Vitamin D+Metabolites [Mass/Vol] 49.7 ng/mL 30-100 [facility] Comment on above: VITAMIN D STATUS 25( OH)VITAMIN D RANGE (ng/mL) Deficient <20 Insufficient 20 to <30Sufficient 30 to 100Reference: Charity Ness, Soo ROUSE, et al. Evaluation,treatment, and prevention of vitamin D deficiency; an Endocrine Society clinical practice guideline. JCEM. 2010; 96(7):1911-30. Activated partial thrombopla stin time (aPTT) in platelet poor plasma by coagulation aOrdered By: Venkatesh Trammell on 11-08-2023 aPTT Coag (PPP) [Time] 28.4 s 25.1-36.5 [facility] Comment on above: A hematocrit value g reater than 55% may lead to inaccurate results in coagulation testing. Patients having hematocrit values >55% require a special collection tube for coagulation studies. Please contact the laboratory at [phone] for redraw instructions. Alanine aminotransferase [En zymatic activity/volume] in Serum or PlasmaOrdered By: Venkatesh Trammell on 11-08-2023 ALT [Catalytic activity/Vol] 26 U/L Normal 7-52 [facility] Comment on above: Performed By: #### C AION #### [facility] , #### HEPATIC, HS TROP, BMP, MG, PTT, CK, BNP, PT, CBC #### [facility] [address] [place] [address] [place] Albumin [Mass/volume] in Ser um or Plasma by Bromocresol green (BCG) dye binding methoOrdered By: Venkaetsh Trammell on 11-08-2023 Albumin BCG dye [Mass/Vol] 3.1 g/dL Low 3.5-5.7 [facility] Alkaline phosphatase [Enzyma tic activity/volume] in Serum or PlasmaOrdered By: Venkatesh Trammell on 11-08-2023 ALP [Catalytic activity/Vol] 54 U/L Normal 34-104 [facility] Comment on above: Performed By: #### C AION #### [facility] , #### HEPATIC, HS TROP, BMP, MG, PTT, CK, BNP, PT, CBC #### [facility] [address] [place], [place] [id number] [place] Aspartate aminotransferase [ Enzymatic activity/volume] in Serum or PlasmaOrdered By: Venkatesh Trammell on 11-08-2023 AST [Catalytic activity/Vol] 23 U/L Normal 13-39 [facility] Comment on above: Performed By: #### C AION #### [facility] , #### HEPATIC, HS TROP, BMP, MG, PTT, CK, BNP, PT, CBC #### [facility] [address] [place] [address] Automated basophil %Ordered By: Venkatesh Trammell on 11-08-2023 Basophils/100 WBC (Bld) 0.3 % Normal . [facility] Comment on above: Performed By: #### C AION #### [facility] , #### HEPATIC, HS TROP, BMP, MG, PTT, CK, BNP, PT, CBC #### [address] Automated basophil countOrde red By: Venkatesh Trammell on 11-08-2023 Basophils (Bld) [#/Vol] 0.0 10*3/uL Normal 0.0-0.2 [facility] Comment on above: Result Comment: PERF ORMED BY: [place] [address] PATHOLOGIST MANAGER INVESTIGATIONS KOBE VENCES M.D. Performed By: #### C AION #### [facility] , #### HEPATIC, HS TROP, BMP, MG, PTT, CK, BNP, PT, CBC #### [address] Automated blood monocyte cou ntOrdered By: Venkatesh Trammell on 11-08-2023 Monocytes (Bld) [#/Vol] 0.7 10*3/uL Normal 0.0-0.8 [facility] Comment on above: Performed By: #### C AION #### [facility] , #### HEPATIC, HS TROP, BMP, MG, PTT, CK, BNP, PT, CBC #### [address] Automated eosinophil %Ordere d By: Venkatesh Trammell on 11-08-2023 Eosinophils/100 WBC (Bld) 1.3 % Normal . [facility] Comment on above: Performed By: #### C AION #### [facility] , #### HEPATIC, HS TROP, BMP, MG, PTT, CK, BNP, PT, CBC #### [address] Automated eosinophil countOr dered By: Venkatesh Trammell on 11-08-2023 Eosinophils (Bld) [#/Vol] 0.2 10*3/uL Normal 0.0-0.45 [facility] Comment on above: Performed By: #### C AION #### [facility] , #### HEPATIC, HS TROP, BMP, MG, PTT, CK, BNP, PT, CBC #### [address] Automated monocyte %Ordered By: Venkatesh Trammell on 11-08-2023 Monocytes/100 WBC (Bld) 4.7 % Normal . [facility] Comment on above: Performed By: #### C AION #### [facility] , #### HEPATIC, HS TROP, BMP, MG, PTT, CK, BNP, PT, CBC #### [address] Automated neutrophil %Ordere d By: Venkatesh Trammell on 11-08-2023 Neutrophils/100 WBC (Bld) 84.2 % Normal . [facility] Comment on above: Performed By: #### C AION #### [facility] , #### HEPATIC, HS TROP, BMP, MG, PTT, CK, BNP, PT, CBC #### [address] BNP ser/plasOrdered By: Roxy Trammell on 11-08-2023 Natriuretic peptide B (Bld) [Mass/Vol] 622.0 pg/mL High 5-100 [facility] Comment on above: Result Comment: PERF ORMED BY: [place] [address] PATHOLOGIST MANAGER INVESTIGATIONS KOBE VENCES M.D. Performed By: #### G LULS #### Point of Care testing , Bacteria [Presence] in Urine by AutomatedOrdered By: Venkatesh Trammell on 11-08-2023 Bacteria Auto Ql (U) Rare [HPF] None Seen [facility] Basic Metabolic Panelon Creatinine Clr Calc Pharmacy 19.45 Normal [facility] Comment on above: Performed By: #### C AION #### [facility] , #### HEPATIC, HS TROP, BMP, MG, PTT, CK, BNP, PT, CBC #### [facility] [address] [place] [id number] [place] GFR/1.73 sq M.predicted MDRD (S/P/Bld) [Vol rate/Area] 23.726 mL/min/{1.73_m2} Normal [facility] Comment on above: Performed By: #### C AION #### [facility] , #### HEPATIC, HS TROP, BMP, MG, PTT, CK, BNP, PT, CBC #### [facility] [address] [place] [id number] [facility] Bilirubin Test strip Ql (U)O rdered By: Venkatesh Trammell on 11-08-2023 Bilirubin Ql (U) Negative Negative [facility] Bilirubin.direct [Mass/volum e] in Serum or PlasmaOrdered By: Venkatesh Trammell on 11-08-2023 Bilirubin.direct [Mass/Vol] 0.10 mg/dL 0.03-0.18 [facility] Bilirubin.total [Mass/volume ] in Serum or PlasmaOrdered By: Venkatesh Trammell on 11-08-2023 Bilirubin [Mass/Vol] 0.3 mg/dL Normal 0.3-1.0 [facility] Comment on above: Performed By: #### C AION #### [facility] , #### HEPATIC, HS TROP, BMP, MG, PTT, CK, BNP, PT, CBC #### [facility] [address] [place] [id number] [place] Calcium [Mass/volume] in 24 hour UrineOrdered By: Gina Poole on 11-08-2023 Calcium (24H U) [Mass/Vol] <0.8 mg/dL Not Estab. [facility] Comment on above: Performed at: - [address] [place] [id number] Director: Percy Barragan PhD, Phone: [phone] Calcium [Mass/volume] in Ser um or PlasmaOrdered By: Venkatesh Trammell on 11-08-2023 Calcium [Mass/Vol] 4.0 mg/dL Off scale low 8.6-10.3 [facility] Comment on above: Critical Result Call ed to and read back by: JENNY OTERO at: 11/08/2023 12:42:16 by:[id number] Result Comment: Crit ical Result Called to and read back by: EJNNY OTERO at: 11/08/2023 12:42:16 by:[id number] Performed By: #### C AION #### [facility] , #### HEPATIC, HS TROP, BMP, MG, PTT, CK, BNP, PT, CBC #### [facility] [address] [place] [address] [place] Calcium, Urineon 11-08-2023 Calcium, Urine <0.8 Normal Not Estab. [facility] Comment on above: Order Comment: Comme nt add on to 11/07 urinarlysis Result Comment: Perf ormed at: CB - [facility] [place] [id number] [place], [place] [id number] [employer] Professor: Percy Barragan PhD, Phone: [phone] PERFORMED BY: [place] [address] PATHOLOGIST MANAGER INVESTIGATIONS KOBE VENCES M.D. Performed By: #### C AION #### [facility] , #### HEPATIC, HS TROP, BMP, MG, PTT, CK, BNP, PT, CBC #### [facility] [address] Carbon dioxide, total [Moles /volume] in Serum or PlasmaOrdered By: Venkatesh Trammell on 11-08-2023 CO2 [Moles/Vol] 28.0 mmol/L Normal 21.0-31.0 [facility] Comment on above: Performed By: #### C AION #### [facility] , #### HEPATIC, HS TROP, BMP, MG, PTT, CK, BNP, PT, CBC #### [address] Chloride [Moles/volume] in S arti or PlasmaOrdered By: Venkatesh Trammell on 11-08-2023 Chloride [Moles/Vol] 92 mmol/L Low 98-107 [facility] Comment on above: Performed By: #### C AION #### [facility] , #### HEPATIC, HS TROP, BMP, MG, PTT, CK, BNP, PT, CBC #### [address] Color of Urine by AutoOrdere d By: Venkatesh Trammell on 11-08-2023 Color (U) Light-yellow Yellow [facility] Comment on above: Order Comment: Name Collection Type:: Voided Performed By: #### C AION #### [facility] , #### HEPATIC, HS TROP, BMP, MG, PTT, CK, BNP, PT, CBC #### [address] Complete Blood Count Auto Di ffon 11-08-2023 Mean Corpuscular HGB Conc 33.4 g/dL Normal 32.0-35.0 [facility] Comment on above: Performed By: #### C AION #### [facility] , #### HEPATIC, HS TROP, BMP, MG, PTT, CK, BNP, PT, CBC #### [place] [address] [place] Monocytes/100 WBC (Bld) 16.42 % Normal 0.00-20.00 [facility] Comment on above: Performed By: #### C AION #### [facility] , #### HEPATIC, HS TROP, BMP, MG, PTT, CK, BNP, PT, CBC #### [address] NRBC% 0.0 /100{WBC} Normal 0-0.5 [facility] Comment on above: Performed By: #### C AION #### [facility] , #### HEPATIC, HS TROP, BMP, MG, PTT, CK, BNP, PT, CBC #### [facility] [address] [place] [address] Creatine kinase [Enzymatic a ctivity/volume] in Serum or PlasmaOrdered By: Venkatesh Trammell on 11-08-2023 CK [Catalytic activity/Vol] 229 U/L High 30-223 [facility] Comment on above: Performed By: #### C AION #### [facility] , #### HEPATIC, HS TROP, BMP, MG, PTT, CK, BNP, PT, CBC #### [facility] [address] [place] [address] [place] Creatinine [Mass/volume] in Serum or PlasmaOrdered By: Venkatesh Trammell on 11-08-2023 Creatinine [Mass/Vol] 2.14 mg/dL High 0.60-1.20 [facility] Comment on above: Performed By: #### C AION #### [facility] , #### HEPATIC, HS TROP, BMP, MG, PTT, CK, BNP, PT, CBC #### [facility] [address] [place] [address] Creatinine, Urine (Random)on 11-08-2023 Creatinine, Urine (Random) 25.00 mg/dL Normal [facility] Comment on above: Order Comment: Comme nt add on to 11/07 urinalysis Result Comment: No r eference range established PERFORMED BY: [place] [address] PATHOLOGIST MANAGER INVESTIGATIONS KOBE VENCES M.D. Performed By: #### C AION #### [facility] , #### HEPATIC, HS TROP, BMP, MG, PTT, CK, BNP, PT, CBC #### [facility] [address] [place] [address] [place] Dipstick and Microscopicon 0 11-08-2023 Bacteria,Urine Rare Normal None Seen [facility] Comment on above: Order Comment: Name Collection Type:: Voided Performed By: #### C AION #### [facility] , #### HEPATIC, HS TROP, BMP, MG, PTT, CK, BNP, PT, CBC #### [address] Bilirubin,Urine Negative Normal Negative [facility] Comment on above: Order Comment: Name Collection Type:: Voided Performed By: #### C AION #### [facility] , #### HEPATIC, HS TROP, BMP, MG, PTT, CK, BNP, PT, CBC #### [address] Budding Yeast,Urine 4+ High None Seen [facility] Comment on above: Order Comment: Name Collection Type:: Voided Result Comment: PERF ORMED BY: [place] [address] PATHOLOGIST MANAGER INVESTIGATIONS KOBE VENCES M.D. Performed By: #### C AION #### [facility] , #### HEPATIC, HS TROP, BMP, MG, PTT, CK, BNP, PT, CBC #### [address] Glucose Ql (U) Normal Normal Normal [facility] Comment on above: Order Comment: Name Collection Type:: Voided Performed By: #### C AION #### [facility] , #### HEPATIC, HS TROP, BMP, MG, PTT, CK, BNP, PT, CBC #### [address] Hyaline Casts,Urine 0-8 Normal 0-8 [facility] Comment on above: Order Comment: Name Collection Type:: Voided Performed By: #### C AION #### [facility] , #### HEPATIC, HS TROP, BMP, MG, PTT, CK, BNP, PT, CBC #### [address] Mucus,Urine Rare Normal [facility] Comment on above: Order Comment: Name Collection Type:: Voided Performed By: #### C AION #### [facility] , #### HEPATIC, HS TROP, BMP, MG, PTT, CK, BNP, PT, CBC #### [address] Nitrite,Urine Negative Normal Negative [facility] Comment on above: Order Comment: Name Collection Type:: Voided Performed By: #### C AION #### [facility] , #### HEPATIC, HS TROP, BMP, MG, PTT, CK, BNP, PT, CBC #### [address] Occult Blood,Urine Negative Normal Negative [facility] Comment on above: Order Comment: Name Collection Type:: Voided Result Comment: PERF ORMED BY: [place] [address] PATHOLOGIST MANAGER INVESTIGATIONS KOBE VENCES M.D. Performed By: #### C AION #### [facility] , #### HEPATIC, HS TROP, BMP, MG, PTT, CK, BNP, PT, CBC #### [address] Protein,Urine Trace High Negative [facility] Comment on above: Order Comment: Name Collection Type:: Voided Performed By: #### C AION #### [facility] , #### HEPATIC, HS TROP, BMP, MG, PTT, CK, BNP, PT, CBC #### [address] RBC,Urine 10-19 High 0-4 [facility] Comment on above: Order Comment: Name Collection Type:: Voided Performed By: #### C AION #### [facility] , #### HEPATIC, HS TROP, BMP, MG, PTT, CK, BNP, PT, CBC #### [address] Specificy [place],Urine 1.008 Normal 1.001-1.030 [facility] Comment on above: Order Comment: Name Collection Type:: Voided Performed By: #### C AION #### [facility] , #### HEPATIC, HS TROP, BMP, MG, PTT, CK, BNP, PT, CBC #### [address] Squamous Epithelial Cell,Urine 1-2 Normal 0-2 [facility] Comment on above: Order Comment: Name Collection Type:: Voided Performed By: #### C AION #### [facility] , #### HEPATIC, HS TROP, BMP, MG, PTT, CK, BNP, PT, CBC #### [address] Urobilinogen,Urine Normal Normal Normal [facility] Comment on above: Order Comment: Name Collection Type:: Voided Performed By: #### C AION #### [facility] , #### HEPATIC, HS TROP, BMP, MG, PTT, CK, BNP, PT, CBC #### [address] WBC CLUMP, Urine Occasional High None Seen [facility] Comment on above: Order Comment: Name Collection Type:: Voided Performed By: #### C AION #### [facility] , #### HEPATIC, HS TROP, BMP, MG, PTT, CK, BNP, PT, CBC #### [address] WBC,Urine 20-49 High 0-4 [facility] Comment on above: Order Comment: Name Collection Type:: Voided Performed By: #### C AION #### [facility] , #### HEPATIC, HS TROP, BMP, MG, PTT, CK, BNP, PT, CBC #### [place] [id number] [facility] ECG 12 lead ECGon 11-08-2023 ECG 12 lead ECG [facility] Main [place] [address] [place], [place] [id number] Electrocardiograph Report Signed Patient: Kate Hagen MR#: [id number] 52 : 1950 Acct:[id number] Age/Sex: 72 / F ADM Date: 11/08/23 Loc: Room: [address] [place] [address] Type: ADM IN Attending Dr: Michelle Lock MD Ordering Provider: Venkatesh Trammell DO Date of Service: 11/08/2312/24/1209 ECG/ECG 12 lead ECG: Recheck/Abnormal Lab/Rx Copies to: Test Reason : Blood Pressure : 121/066 mmHG Vent. Rate : 079 BPM Atrial Rate : 079 BPM P-R Int : 000 ms QRS Dur : 064 ms QT Int : 454 ms P-R-T Axes : 000 034 009 degrees QTc Int : 520 ms Undetermined rhythm Cannot rule out Anterior infarct (cited on or before 18-NOV-2022) Prolonged QT Abnormal ECG When compared with ECG of 18-NOV-2022 16:19, Current undetermined rhythm precludes rhythm comparison, needs review QT has lengthened Confirmed by Venkatesh Trammell DO ([id number]) on 11/08/2023 7:29:15 PM Referred By: Electronically Signed By:Venkatesh Trammell DO Transcribed By: MUS Signed By Venkatesh Trammell DO 1928 Normal [facility] Epithelial cells.squamous [# /area] in Urine sediment by Automated countOrdered By: Venkatesh Trammell on 11-08-2023 Epithelial cells.squamous Auto (Urine sed) [#/Area] 1-2 [HPF] 0-2 [facility] Erythrocyte distribution wid th [Ratio] by Automated countOrdered By: Venkatesh Trammell on 11-08-2023 Erythrocyte distribution width (RBC) [Ratio] 17.4 % High 11.9-15.3 [facility] Comment on above: Performed By: #### C AION #### [facility] , #### HEPATIC, HS TROP, BMP, MG, PTT, CK, BNP, PT, CBC #### [facility] [address] Erythrocytes [#/area] in Uri ne sediment by Automated countOrdered By: Venkatesh Trammell on 11-08-2023 RBC Auto (Urine sed) [#/Area] 10-19 [HPF] High 0-4 [facility] Erythrocytes [#/volume] in B lood by Automated countOrdered By: Venkatesh Trammell on 11-08-2023 RBC (Bld) [#/Vol] 3.18 10*6/uL Low 3.60-5.00 [facility] Comment on above: Performed By: #### C AION #### [facility] , #### HEPATIC, HS TROP, BMP, MG, PTT, CK, BNP, PT, CBC #### [address] Glucose Poct Glucometerson 0 11-08-2023 Glucose [Mass/Vol] 225 mg/dL Normal [facility] Comment on above: Result Comment: [facility] Glucose Reference Range is dependent on time and content of last meal. Glucose of more than 200 mg/dL in a nonstressed, ambulatory subject supports the diagnosis of Diabetes Mellitus. PERFORMED BY: [place] [address] PATHOLOGIST MANAGER INVESTIGATIONS KOBE VENCES M.D. Performed By: #### C AION #### [facility] , #### HEPATIC, HS TROP, BMP, MG, PTT, CK, BNP, PT, CBC #### [facility] [address] Glucose [Mass/volume] in Ser um or PlasmaOrdered By: Venkatesh Trammell on 11-08-2023 Glucose [Mass/Vol] 106 mg/dL High 70-100 [facility] Comment on above: ADA recommended refe rence rangeRandom Glucose Reference Range is dependent on time and content of last meal. Glucose of more than 200 mg/dL in a nonstressed, ambulatory subject supports the diagnosis of Diabetes Mellitus. Result Comment: [facility] Glucose Reference Range is dependent on time and content of last meal. Glucose of more than 200 mg/dL in a nonstressed, ambulatory subject supports the diagnosis of Diabetes Mellitus. ADA recommended reference range Performed By: #### C AION #### [facility] , #### HEPATIC, HS TROP, BMP, MG, PTT, CK, BNP, PT, CBC #### [facility] [address] Glucose [Mass/volume] in Uri ne by Test stripOrdered By: Venkatesh Trammell on 11-08-2023 Glucose Test strip (U) [Mass/Vol] Normal mg/dL Normal [facility] Hematocrit [Volume Fraction] of Blood by Automated countOrdered By: Venkatesh Trammell on 11-08-2023 Hematocrit (Bld) [Volume fraction] 28.9 % Low 34.0-46.4 [facility] Comment on above: Performed By: #### C AION #### [facility] , #### HEPATIC, HS TROP, BMP, MG, PTT, CK, BNP, PT, CBC #### [facility] [address] Hemoglobin Test strip Ql (U) Ordered By: Venkatesh Trammell on 11-08-2023 Hemoglobin Ql (U) Negative Negative [facility] Hemoglobin [Mass/volume] in BloodOrdered By: Venkatesh Trammell on 11-08-2023 Hemoglobin (Bld) [Mass/Vol] 9.7 g/dL Low 11.8-15.4 [facility] Comment on above: Performed By: #### C AION #### [facility] , #### HEPATIC, HS TROP, BMP, MG, PTT, CK, BNP, PT, CBC #### [facility] [address] Hepatic Panelon 11-08-2023 Albumin [Mass/Vol] 3.1 g/dL Low 3.5-5.7 [facility] Comment on above: Performed By: #### C AION #### [facility] , #### HEPATIC, HS TROP, BMP, MG, PTT, CK, BNP, PT, CBC #### [facility] [address] Bilirubin,Indirect 0.2 mg/dL Normal [facility] Comment on above: Performed By: #### C AION #### [facility] , #### HEPATIC, HS TROP, BMP, MG, PTT, CK, BNP, PT, CBC #### [address] Bilirubin.indirect [Mass/Vol] 0.10 mg/dL Normal 0.03-0.18 [facility] Comment on above: Performed By: #### C AION #### [facility] , #### HEPATIC, HS TROP, BMP, MG, PTT, CK, BNP, PT, CBC #### [address] Hyaline casts [#/area] in Ur ine sediment by Automated countOrdered By: Venkatesh Trammell on 11-08-2023 Hyaline casts Auto (Urine sed) [#/Area] 0-8 [LPF] 0-8 [facility] INR in Platelet poor plasma by Coagulation assayOrdered By: Venkatesh Trammell on 11-08-2023 INR Coag (PPP) [Relative time] 1.4 {INR} [facility] Comment on above: INR Therapeutic Rang [...] with mechanical heart valves: 3 - 4.5 Result Comment: INR Therapeutic Range A) Pre- [...] valves: 3 - 4.5 Performed By: #### G LULS #### Point of Care testing , Ionized Calciumon 11-08-2023 Ionized Calcium <3.0 Low 4.5-5.6 [facility] Comment on above: Result Comment: Ve rified by repeat analysis Performed at: [facility] [address] [id number] [employer] Professor: Percy Barragan PhD, Phone: [phone] PERFORMED BY: [place] [address] PATHOLOGIST MANAGER INVESTIGATIONS KOBE VENCES M.D. Performed By: #### G LULS #### Point of Care testing , Ketones [Presence] in Urine by Test stripOrdered By: Venkatesh Trammell on 11-08-2023 Ketones Ql (U) Negative Negative [facility] Comment on above: Order Comment: Name Collection Type:: Voided Performed By: #### C AION #### [facility] , #### HEPATIC, HS TROP, BMP, MG, PTT, CK, BNP, PT, CBC #### [facility] [address] [place] [address] Lactate [Moles/volume] in Se rum or PlasmaOrdered By: Michelle Lock on 11-08-2023 Lactate [Moles/Vol] 1.4 mmol/L 0.5-2.2 [facility] Comment on above: Result Comment: PERF ORMED BY: [place] [address] PATHOLOGIST MANAGER INVESTIGATIONS KOBE VENCES M.D. Performed By: #### C AION #### [facility] , #### HEPATIC, HS TROP, BMP, MG, PTT, CK, BNP, PT, CBC #### [facility] [address] [place] [address] [place] Leukocyte clumps [Presence] in Urine by AutomatedOrdered By: Venkatesh Trammell on 11-08-2023 Leukocyte clumps Auto Ql (U) Occasional [LPF] High None Seen [facility] Leukocyte esterase [Presence ] in Urine by Test stripOrdered By: Venkatesh Trammell on 11-08-2023 Leukocyte esterase Test strip Ql (U) 3+ High Negative [facility] Comment on above: Order Comment: Name Collection Type:: Voided Performed By: #### C AION #### [facility] , #### HEPATIC, HS TROP, BMP, MG, PTT, CK, BNP, PT, CBC #### [facility] [address] [place] [address] [place] Leukocytes [#/area] in Urine sediment by Automated countOrdered By: Venkatesh Trammell on 11-08-2023 WBC Auto (Urine sed) [#/Area] 20-49 [HPF] High 0-4 [facility] Leukocytes [#/volume] correc loan for nucleated erythrocytes in Blood by Automated counOrdered By: Venkatesh Trammell on 11-08-2023 WBC corrected for nucl RBC Auto (Bld) [#/Vol] 14.5 10*3/uL High 3.8-11.6 [facility] Leukocytes [#/volume] in Blo od by Automated countOrdered By: Venkatesh Trammell on 11-08-2023 WBC (Bld) [#/Vol] 14.5 10*3/uL High 3.8-11.6 [facility] Comment on above: Performed By: #### C AION #### [facility] , #### HEPATIC, HS TROP, BMP, MG, PTT, CK, BNP, PT, CBC #### [place] [address] [place] Lymphocytes [#/volume] in Bl ood by Automated countOrdered By: Venkatesh Trammell on 11-08-2023 Lymphocytes (Bld) [#/Vol] 1.4 10*3/uL Normal 1.00-4.8 [facility] Comment on above: Performed By: #### C AION #### [facility] , #### HEPATIC, HS TROP, BMP, MG, PTT, CK, BNP, PT, CBC #### [facility] [address] [place] [address] [place] Lymphocytes/100 leukocytes i n Blood by Automated countOrdered By: Venkatesh Trammell on 11-08-2023 Lymphocytes/100 WBC (Bld) 9.5 % Normal . [facility] Comment on above: Performed By: #### C AION #### [facility] , #### HEPATIC, HS TROP, BMP, MG, PTT, CK, BNP, PT, CBC #### [facility] [address] [place] [address] [place] MCH [Entitic mass] by Aut[employer] loan countOrdered By: Venkatesh Trammell on 11-08-2023 MCH (RBC) [Entitic mass] 30.4 pg Normal 24.7-34.3 [facility] Comment on above: Performed By: #### C AION #### [facility] , #### HEPATIC, HS TROP, BMP, MG, PTT, CK, BNP, PT, CBC #### [facility] [address] MCHC Auto (RBC) [Mass/Vol]Or dered By: Venkatesh Trammell on 11-08-2023 MCHC (RBC) [Mass/Vol] 33.4 g/dL 32.0-35.0 [facility] MCV [Entitic volume] by Auto mated countOrdered By: Venkatesh Trammell on 11-08-2023 MCV (RBC) [Entitic vol] 90.9 fL Normal 80-100 [facility] Comment on above: Performed By: #### C AION #### [facility] , #### HEPATIC, HS TROP, BMP, MG, PTT, CK, BNP, PT, CBC #### [facility] [address] Magnesium [Mass/volume] in S arti or PlasmaOrdered By: Venkatesh Trammell on 11-08-2023 Magnesium [Mass/Vol] 0.9 mg/dL Off scale low 1.9-2.[address] [facility] Comment on above: Critical Result S_MG : Called to and read back by: JNENY OTERO at: 11/08/2023 12:42:16 by:[id number] Result Comment: Crit ical Result S_MG: Called to and read back by: JENNY OTERO at: 11/08/2023 12:42:16 by:[id number] PERFORMED BY: [place] [address] PATHOLOGIST MANAGER INVESTIGATIONS KOBE VENCES M.D. Performed By: #### C AION #### [facility] , #### HEPATIC, HS TROP, BMP, MG, PTT, CK, BNP, PT, CBC #### [facility] [address] [place] [address] Monocyte distribution width [Entitic volume] in Blood by AutomatedOrdered By: Venkatesh Trammell on 11-08-2023 Monocyte distribution width Auto (Bld) [Entitic vol] 16.42 % 0.00-20.00 [facility] Mucus [Presence] in Urine by AutomatedOrdered By: Venkatesh Trammell on 11-08-2023 Mucus Auto Ql (U) Rare [LPF] [facility] Neutrophils [#/volume] in Bl ood by Automated countOrdered By: Venkatesh Trammell on 11-08-2023 Neutrophils (Bld) [#/Vol] 12.2 10*3/uL High 1.8-7.7 [facility] Comment on above: Performed By: #### C AION #### [facility] , #### HEPATIC, HS TROP, BMP, MG, PTT, CK, BNP, PT, CBC #### [facility] [address] [place] [address] Nitrite Test strip Ql (U)Ord ered By: Venkatesh Trammell on 11-08-2023 Nitrite Ql (U) Negative Negative [facility] No Panel InformationOrdered By: Venkatesh Trammell on 11-08-2023 Estimated GFR (CKD-EPI) 23.726 mL/Min [facility] Creatinine Clearance (Chem 19.45 [facility] Nucleated erythrocytes [Pres ence] in Blood by Automated countOrdered By: Venkatesh Trammell on 11-08-2023 Nucleated RBC Auto Ql (Bld) 0.0 /100{WBC} 0-0.5 [facility] Partial Thromboplastin Timeo n 11-08-2023 aPTT Coag (Bld) [Time] 28.4 s Normal 25.1-36.5 [facility] Comment on above: Result Comment: A he matocrit value greater than 55% may lead to inaccurate results in coagulation testing. Patients having hematocrit values >55% require a special collection tube for coagulation studies. Please contact the laboratory at [phone] for redraw instructions. PERFORMED BY: [place] [address] PATHOLOGIST MANAGER INVESTIGATIONS KOBE VENCES M.D. Performed By: #### G LUBALDEMAR #### Point of Care testing , Platelet mean volume [Entiti c volume] in Blood by Automated countOrdered By: Venkatesh Trammell on 11-08-2023 Platelet mean volume (Bld) [Entitic vol] 7.3 fL Normal 6.3-10.7 [facility] Comment on above: Performed By: #### C AION #### [facility] , #### HEPATIC, HS TROP, BMP, MG, PTT, CK, BNP, PT, CBC #### [facility] [address] [place] [address] [place] Platelets [#/volume] in Bloo d by Automated countOrdered By: Venkatesh Trammell on 11-08-2023 Platelets (Bld) [#/Vol] 184 10*3/uL Normal 150-450 [facility] Comment on above: Performed By: #### C AION #### [facility] , #### HEPATIC, HS TROP, BMP, MG, PTT, CK, BNP, PT, CBC #### [facility] [address] [place] [address] [place] Potassium [Moles/volume] in Serum or PlasmaOrdered By: Venkatesh Trammell on 11-08-2023 Potassium [Moles/Vol] 3.2 mmol/L Low 3.5-5.1 [facility] Comment on above: Performed By: #### C AION #### [facility] , #### HEPATIC, HS TROP, BMP, MG, PTT, CK, BNP, PT, CBC #### [address] Protein Test strip (U) [Mass /Vol]Ordered By: Venkatesh Trammell on 11-08-2023 Protein (U) [Mass/Vol] Trace mg/dL High Negative [facility] Protein [Mass/volume] in Ser um or PlasmaOrdered By: Venkatesh Trammell on 11-08-2023 Protein [Mass/Vol] 5.9 g/dL Low 6.4-8.9 [facility] Comment on above: Performed By: #### C AION #### [facility] , #### HEPATIC, HS TROP, BMP, MG, PTT, CK, BNP, PT, CBC #### [address] Prothrombin time (PT)Ordered By: Venkatesh Trammell on 11-08-2023 PT Coag (PPP) [Time] 16.4 s High 9.0-12.9 [facility] Comment on above: A hematocrit value g reater than 55% may lead to inaccurate results in coagulation testing. Patients having hematocrit values >55% require a special collection tube for coagulation studies. Please contact the laboratory at [phone] for redraw instructions. Result Comment: A he matocrit value greater than 55% may lead to inaccurate results in coagulation testing. Patients having hematocrit values >55% require a special collection tube for coagulation studies. Please contact the laboratory at [phone] for redraw instructions. Performed By: #### G LULS #### Point of Care testing , Serum globulin measurement b y calculation (mass/volume)Ordered By: Venkatesh Trammell on 11-08-2023 Globulin (S) [Mass/Vol] 2.8 g/dL Normal [facility] Comment on above: Performed By: #### C AION #### [facility] , #### HEPATIC, HS TROP, BMP, MG, PTT, CK, BNP, PT, CBC #### [place] [id number] [place] Serum ionized calcium measur ement using ion specific electrode (mass/volume)Ordered By: Venkatesh Trammell on 11-08-2023 Calcium.ionized ISE [Mass/Vol] <3.0 mg/dL Low 4.5-5.6 [facility] Comment on above: Verified by repeat analysisPerformed at: [address] [id number] Director: Percy Barragan PhD, Phone: [phone] Serum or plasma albumin/glob ulin mass ratioOrdered By: Venkatesh Trammell on 11-08-2023 Albumin/Globulin [Mass ratio] 1.1 {ratio} Normal [facility] Comment on above: Performed By: #### C AION #### [facility] , #### HEPATIC, HS TROP, BMP, MG, PTT, CK, BNP, PT, CBC #### [facility] [address] [place] [address] Serum or plasma anion gap de terminationOrdered By: Venkatesh Trammell on 11-08-2023 Anion gap [Moles/Vol] 18.2 mmol/L High 6.0-15.0 [facility] Comment on above: Performed By: #### C AION #### [facility] , #### HEPATIC, HS TROP, BMP, MG, PTT, CK, BNP, PT, CBC #### [facility] [address] [place] [address] Serum or plasma non-glucuron idated bilirubin measurement (mass/volume)Ordered By: Venkatesh Trammell on 11-08-2023 Bilirubin.indirect [Mass/Vol] 0.2 mg/dL [facility] Sodium [Moles/volume] in Ser um or PlasmaOrdered By: Venkatesh Trammell on 11-08-2023 Sodium [Moles/Vol] 135 mmol/L Low 136-145 [facility] Comment on above: Performed By: #### C AION #### [facility] , #### HEPATIC, HS TROP, BMP, MG, PTT, CK, BNP, PT, CBC #### [facility] [address] [place] [address] Sodium [Moles/volume] in Uri neOrdered By: Gina Poole on 11-08-2023 Sodium (U) [Moles/Vol] 75.0 mmol/L [facility] Comment on above: No reference range e stablished Order Comment: Comme nt add on to 11/07 urinalysis Result Comment: No r eference range established Performed By: #### C AION #### [facility] , #### HEPATIC, HS TROP, BMP, MG, PTT, CK, BNP, PT, CBC #### [facility] [address] [place] [address] Specific gravity Test strip (U) [Rel density]Ordered By: Venkatesh Trammell on 11-08-2023 Specific gravity (U) [Rel density] 1.008 1.001-1.030 [facility] Troponin I High Sensitivityo n 11-08-2023 Troponin I High Sensitivity 15.9 pg/mL High 0.0-15.0 [facility] Comment on above: Result Comment: PERF ORMED BY: [place] [address] PATHOLOGIST MANAGER INVESTIGATIONS KOBE VENCES M.D. Performed By: #### C AION #### [facility] , #### HEPATIC, HS TROP, BMP, MG, PTT, CK, BNP, PT, CBC #### [facility] [address] [place] [address] Troponin I.cardiac [Mass/vol ume] in Serum or Plasma by Detection limit <= 0.01 ng/Ordered By: Venkatesh Trammell on 11-08-2023 Troponin I.cardiac DL <= 0.01 ng/mL [Mass/Vol] 15.9 pg/mL High 0.0-15.0 [facility] Urea nitrogen [Mass/volume] in Serum or PlasmaOrdered By: Venkatesh Trammell on 11-08-2023 Urea nitrogen [Mass/Vol] 39 mg/dL High 11-24 [facility] Comment on above: Performed By: #### C AION #### [facility] , #### HEPATIC, HS TROP, BMP, MG, PTT, CK, BNP, PT, CBC #### [facility] [address] [place] [address] Urine Cultureon 11-08-2023 Bacteria identified Cx Nom (U) ORGANISM: Carolee glabrata (O:CANGLA) Campbell Count >100,000 PERFORMED BY: [place] [address] PATHOLOGIST MANAGER INVESTIGATIONS KOBE VENCES M.D. Normal [facility] Comment on above: Performed By: #### C AION #### [facility] , #### HEPATIC, HS TROP, BMP, MG, PTT, CK, BNP, PT, CBC #### [address] Urine appearanceOrdered By: Venkatesh Trammell on 11-08-2023 Appearance (U) Clear Clear [facility] Comment on above: Order Comment: Name Collection Type:: Voided Performed By: #### C AION #### [facility] , #### HEPATIC, HS TROP, BMP, MG, PTT, CK, BNP, PT, CBC #### [address] Urine culture routineOrdered By: Venkatesh Trammell on 11-08-2023 Bacteria identified Cx Nom (U) Carolee glabrata Abnormal [facility] Urobilinogen Test strip (U) [Mass/Vol]Ordered By: Venkatesh Trammell on 11-08-2023 Urobilinogen (U) [Mass/Vol] Normal mg/dL Normal [facility] XR chest 1V portableon 11-07 XR chest 1V portable [facility] [place] [address] XRay Report Signed Patient: Kate Hagen MR#: [id number] 52 : 1950 Acct:[id number] Age/Sex: 72 / F ADM Date: 11/08/23 Loc: ER Room: Type: PRE ER Attending Dr: Copies to: ZOHRA Giraldo DO Ordering Provider: Venkatesh Trammell DO Date of Service: 11/08/23 XR/XR chest 1V portable: Recheck/Abnormal Lab/Rx XR chest 1V portable 11/08/2023 12:10 PM SIGNS AND SYMPTOMS: Shakiness, hypocalcemia PROTOCOL: Frontal radiograph of the chest COMPARISON: 11/21/2022 FINDINGS: The trachea is midline. The heart and mediastinal structures are within normal limits. Interstitial prominence is noted bilaterally which appears to be chronic. The lung parenchyma is clear, otherwise. There is a remote fracture of the left humeral neck. XR/XR chest 1V portable IMPRESSION: Chronic interstitial changes are noted. No focal consolidation. Impression dictated by: Candace Godfrey M.D.11/08/2023 1:25 PM Dictation Location: [place] [address] Transcribed By: [facility] 11/08/23 1325 Dictated By: Candace Godfrey II, MD 11/08/23 1323 Signed By: 11/08/23 1325 Normal [facility] Yeast.budding [Presence] in Urine by Computer assisted methodOrdered By: Venkatesh Trammell on 11-08-2023 Yeast.budding Computer assisted Ql (U) 4+ [HPF] High None Seen [facility] pH of Urine by Test stripOrd ered By: Venkatesh Trammell on 11-08-2023 pH (U) 5.0 [pH] 5.0-9.0 [facility] Comment on above: Order Comment: Name Collection Type:: Voided Performed By: #### C AION #### [facility] , #### HEPATIC, HS TROP, BMP, MG, PTT, CK, BNP, PT, CBC #### [facility] [address] [place] [address] Patient Educationon 09-09-19 Patient Education Obstetrics and Gynec ology [...] this condition includes: ? Antibiotic medicine. ? Imxi-fdz-sditfhd medicines to treat discomfort. ? Drinking enough [...] these instructions at home: Medicines ? Take baio-xey-ymkpmlo and prescription medicines only as told by [...] Document Revie (more content not included)... Normal [facility] Urology Office/Clinic Noteon 05-09-2024 Urology Office/Clinic Note Chief Complaint f/u HPI [...] with voice recognition artificial intelligence software, specifically [employer], [employer] and or [employer]. Substitutions may have occurred due to the [...] 2 weeks [1] Patient continues to take tzol-izi-simnhsl preventative supplements-cranberry, probiotics. She is using vaginal [...] 1.83, e (more content not included)... Normal [facility] Comment on above: Result Comment: Elec tronically Signed By: NICOLA Pittman APRN, Shaye Pires\.br\Date and Time Signed: 09/09/23 10:34 EDT Patient Instructionson 09-07 Casual Shoe Inspector Authentication Interface Message Text You are doing excellent. Return to see me at 1 year from surgery Normal [facility] Progress Noteson 09-08-2023 Casual Shoe Inspector Authentication Interface Message Text Patient seen examined. [...] of her questions were answered. Normal [facility] XR FEMUR RIGHT MINIMUM 2 VIE WSon 09-08-2023 XR FEMUR RIGHT MINIMUM 2 VIEWS EXAMINATION: XR FEMUR RIGHT MINIMUM 2 VIEWSPRO/RT 09/08/2023 12:32 PM CLINICAL HISTORY: fu ASSOCIATED DIAGNOSIS: Closed displaced intertrochanteric fracture of right femur, initial encounter ([facility]) ORDERING PROVIDER: KAYDEN LEE TECHNOLOGISTS NOTE: COMPARISON: XR FEMUR RIGHT MINIMUM 2 VIEWS 07/07/2023, 12:52 PM IMPRESSION: Comparison with the previous studies shows no change in position or alignment of the previously described right femur fracture. There is slight maturation of callus formation consistent with progression in healing. Hardware is intact without signs of loosening. Right femur MACRO: None Normal [facility] XR Femur - right 2 Viewson 0 09-08-2023 EXAMINATION: XR FEMU R RIGHT MINIMUM 2 VIEWSPRO/RT 09/08/2023 12:32 PM CLINICAL HISTORY: fu ASSOCIATED DIAGNOSIS: Closed displaced intertrochanteric fracture of right femur, initial encounter ([facility]) ORDERING PROVIDER: KAYDEN LEE TECHNOLOGISTS NOTE: COMPARISON: [...] intertrochanteric fracture of right femur, initial encounter ([facility]) ORDERING PROVIDER: KAYDEN LEE TECHNEARLE NOTE: COMPARISON: XR FEMUR RIGHT MINIMUM 2 VIEWS 07/07/2023, 12:52 PM IMPRESSION: Comparison with the previous studies shows no change in position or alignment of the previously described right femur fracture. There is slight maturation of callus formation consistent with progression in healing. Hardware is intact without signs of loosening. Right femur MACRO: None [facility] Radiology Study observation (narrative) [facility] Femur - right 2 ViewsOrde red By: Fabian Ayala on 09-08-2023 [facility] Work Phone: XR HIP RIGHT W/ PELVIS MIN 2 -3 VIEWSon 09-08-2023 XR HIP RIGHT W/ PELVIS MIN 2-3 VIEWS EXAMINATION: XR HIP RIGHT W/ PELVIS MIN 2-3 VIEWSPRO/RT 09/08/2023 12:32 PM CLINICAL HISTORY: fu or pain ASSOCIATED DIAGNOSIS: Closed displaced intertrochanteric fracture of right femur, initial encounter ([facility]) ORDERING PROVIDER: KAYDEN LEE TECHNOLOGISTS NOTE: COMPARISON: [...] fracture. Right hip MACRO: None Normal The [facility] XR Pelvis and Hip - right Vi ewson 09-08-2023 EXAMINATION: XR HIP RIGHT W/ PELVIS MIN 2-3 VIEWSPRO/RT 09/08/2023 12:32 PM CLINICAL HISTORY: fu or pain ASSOCIATED DIAGNOSIS: Closed displaced intertrochanteric fracture of right femur, initial encounter ([facility]) ORDERING PROVIDER: KAYDEN LEE TECHNOLOGISTS NOTE: COMPARISON: [...] intertrochanteric fracture of right femur, initial encounter ([facility]) ORDERING PROVIDER: KAYDEN LEE TECHNOLOGISTS NOTE: COMPARISON: [...] previously described fracture. Right hip MACRO: None [facility] Radiology Study observation (narrative) [facility] Ambulatory Visit Summaryon 0 09-07-2023 Ambulatory Visit Summary KATE HAGEN :1950 Visit Date:09/07/2023 Ambulatory Visit Instructions Your Diagnosis Recurrent UTI Pneumaturia Adrenal mass Urinary retention Renal cyst Urgency of urination Your Care Team Attending Physician - NICOLA Pittman APRN, Shaye Pires Primary Care Physician - BARRY BARBER MD This Is Your Medications List Contact prescribing physician if questions or concerns acetaminophen-hydrocodone (acetaminophen-hydrocodone 325 mg-5 mg oral tablet) albuterol (Ventolin [...] XIE, Jacqui Nieves Where: [facility] Juan Normal [facility] Progress Noteson 08-23-2023 Casual Shoe Inspector Authentication Interface Message Text Teaching Physician Note: [...] pain. No operative intervention required given appropriate sikhism of function. Follow up with dentistry for denture adjustment. Megn Leos DMD, MD Normal [facility] Progress Noteson 08-19-2023 Casual Shoe Inspector Authentication Interface Message Text [facility] [...] is properly healing. Assessment / Diagnosis: Edentulous [[id number]] Normal post operative course Normal postoperative course. [...] symptoms appear. Emma Zamudio DDS Normal [facility] Progress Noteson 08-18-2023 Casual Shoe Inspector Authentication Interface Message Text Normal The [facility] BASIC METABOLIC PANLon 08-10 Anion gap [Moles/Vol] 15 mmol/L Normal 5-15 [facility] Comment on above: Performed By: #### B MP #### [facility] ([id number]) [address] [place] [address] Calcium [Mass/Vol] 7.4 mg/dL Low 8.5-10.5 [facility] Comment on above: Performed By: #### B MP #### [facility] ([id number]) [address] [place] [address] Chloride [Moles/Vol] 100 mmol/L Normal 98-109 [facility] Comment on above: Performed By: #### B MP #### [facility] ([id number]) [address] [place] [address] CO2 [Moles/Vol] 29 mmol/L Normal 22-32 [facility] Comment on above: Performed By: #### B MP #### [facility] ([id number]) [address] [place] [address] Creatinine [Mass/Vol] 3.89 mg/dL High 0.40-1.00 [facility] Comment on above: Result Comment: METH OD TRACEABLE TO IDMS STANDARD Performed By: #### B MP #### [facility] ([id number]) [address] [place] [address] GFR/1.73 sq M.predicted among non-blacks MDRD (S/P/Bld) [Vol rate/Area] 12 mL/min/{1.73_m2} Low >59 [facility] Comment on above: Result Comment: Reported eGFR is based on the CKD-EPI 2020 equation that does not use a race coefficient. Performed By: #### B MP #### [facility] ([id number]) [address] [place] [address] Glucose [Mass/Vol] 76 mg/dL Normal 65-99 [facility] Comment on above: Performed By: #### B MP #### [facility] ([id number]) [address] [place] [address] Potassium [Moles/Vol] 3.8 mmol/L Normal 3.5-5.0 [facility] Comment on above: Performed By: #### B MP #### [facility] ([id number]) [address] [place] [address] Sodium [Moles/Vol] 144 mmol/L Normal 134-146 [facility] Comment on above: Performed By: #### B MP #### [facility] ([id number]) [address] [place] [address] Urea nitrogen [Mass/Vol] 95 mg/dL High 5-27 [facility] Comment on above: Performed By: #### B MP #### [facility] ([id number]) [address] [place] [address] XR FEMUR RIGHT MINIMUM 2 VIE WSon 07-08-2023 XR FEMUR RIGHT MINIMUM 2 VIEWS EXAMINATION: XR FEMUR RIGHT MINIMUM 2 VIEWSPRO/RT 07/07/2023 12:51 PM CLINICAL HISTORY: fu ASSOCIATED DIAGNOSIS: Closed displaced intertrochanteric fracture of right femur, initial encounter ([facility]) ORDERING PROVIDER: KAYDEN LEE TECHNOLOGISTS NOTE: COMPARISON: XR FEMUR RIGHT MINIMUM 2 VIEWS 06/09/2023, 8:34 AM IMPRESSION: Comparison with the previous studies shows no change in position or alignment of the previously described right femur fracture. There is slight maturation of callus formation consistent with progression in healing. Hardware is intact without signs of loosening. Right femur MACRO: None Normal [facility] XR Femur - right 2 Viewson 0 07-08-2023 EXAMINATION: XR FEMU R RIGHT MINIMUM 2 VIEWSPRO/RT 07/07/2023 12:51 PM CLINICAL HISTORY: fu ASSOCIATED DIAGNOSIS: Closed displaced intertrochanteric fracture of right femur, initial encounter ([facility]) ORDERING PROVIDER: KAYDEN LEE TECHNEARLE NOTE: COMPARISON: XR FEMUR RIGHT MINIMUM 2 VIEWS 06/09/2023, 8:34 AM IMPRESSION: Comparison with the previous studies shows no change in position or alignment of the previously described right femur fracture. There is slight maturation of callus formation consistent with progression in healing. Hardware is intact without signs of loosening. Right femur MACRO: None RADIOLOGY Darwin Toribio MD - 07/08/2023 EXAMINATION: XR FEMUR RIGHT MINIMUM 2 VIEWSPRO/RT 07/07/2023 12:51 PM CLINICAL HISTORY: fu ASSOCIATED DIAGNOSIS: Closed displaced intertrochanteric fracture of right femur, initial encounter ([facility]) ORDERING PROVIDER: KAYDEN LEE TECHNEARLE NOTE: COMPARISON: XR FEMUR RIGHT MINIMUM 2 VIEWS 06/09/2023, 8:34 AM IMPRESSION: Comparison with the previous studies shows no change in position or alignment of the previously described right femur fracture. There is slight maturation of callus formation consistent with progression in healing. Hardware is intact without signs of loosening. Right femur MACRO: None [facility] [employer] [facility] Work Phone: [facility] [facility] Work Phone: XR PELVIS SINGLE VIEWon 03-0 XR PELVIS SINGLE VIEW EXAMINATION: XR PE LVIS SINGLE VIEW 07/07/2023 12:51 PM CLINICAL HISTORY: pain or f/u ASSOCIATED DIAGNOSIS: Closed displaced intertrochanteric fracture of right femur, initial encounter ([facility]) ORDERING PROVIDER: KAYDEN LEE TECHNEARLE NOTE: COMPARISON: [...] IMPRESSION: Stable examination. MACRO: None Normal [facility] XR Pelvis Single viewon 03-0 EXAMINATION: XR PELV IS SINGLE VIEW 07/07/2023 12:51 PM CLINICAL HISTORY: pain or f/u ASSOCIATED DIAGNOSIS: Closed displaced intertrochanteric fracture of right femur, initial encounter ([facility]) ORDERING PROVIDER: KAYDEN SMALLS NOTE: COMPARISON: XR [...] or dislocation. IMPRESSION: Stable examination. MACRO: None Darwin Chang MD - 07/08/2023 EXAMINATION: XR PELVIS SINGLE VIEW 07/07/2023 12:51 PM CLINICAL HISTORY: pain or f/u ASSOCIATED DIAGNOSIS: Closed displaced intertrochanteric fracture of right femur, initial encounter ([facility]) ORDERING PROVIDER: KAYDEN SMALLS NOTE: COMPARISON: XR [...] or dislocation. IMPRESSION: Stable examination. MACRO: None [facility] [employer] [facility] Work Phone: XR Pelvis Single viewOrdered By: Darwin Toribio on 07-08-2023 [facility] [employer] [facility] Work Phone: Patient Instructionson 07-06 Casual Shoe Inspector Authentication Interface Message Text Your fracture remains well aligned. I expect that your knee pain is from a combination of pain from your hip joint as well as some muscular imbalance from your injury. Continue to work with physical therapy on this. Return to see me in 2 months. Normal [facility] Progress Noteson 07-07-2023 Casual Shoe Inspector Authentication Interface Message Text Patient returns for [...] see me in 2 months. Normal [facility] XR Femur - right 2 Viewson 0 07-07-2023 Radiology Study observation (narrative) [facility] [facility] Work Phone: XR Pelvis Single viewon 030 Radiology Study observation (narrative) [facility] [facility] Work Phone: ALL BASIC METABOLIC PANELon 06-16-2023 Anion gap [Moles/Vol] 11.3 mmol/L [facility] Calcium [Mass/Vol] 9.0 mg/dL 8.5 - [...] 145 mmol/L [facility] EGFR-NON AF [place] 22 Low 60 - PINF [facility] Urea nitrogen [Mass/Vol] 55.0 mg/dL High 7.0 - 18.0 mg/dL [facility] Urea nitrogen/Creatinine [Mass ratio] 25.0 mg/mg [facility] Telephone Encounteron 2023 Casual Shoe Inspector Authentication Interface Message Text What is the need: Medicare PHU SNF Review Situation: Patient approaching the 30 day readmission period Background: Attending Meng Whitaker MD Date of Admission 05/13/2023 Date of Discharge 05/18/2023 [facility] FINAL DIAGNOSES: Hospital Problems as of 05/18/2023 * (Principal) H/O traumatic fracture Assessment: Reviewed careport patient remains in SNF 05/18/2023 7:35 PM [facility] ([facility]) Recommendation: continue PHU SNF Review Program closed at this time Normal [facility] ALL BASIC METABOLIC PANELon 06-14-2023 Anion gap [Moles/Vol] 9.3 mmol/L [facility] Calcium [Mass/Vol] 9.1 mg/dL 8.5 - 10. 1 mg/dL [facility] Chloride [Moles/Vol] 98 mmol/L 98 - 10 7 mmol/L [facility] CO2 [Moles/Vol] 35.7 mmol/L High 21.0 - 32.0 mmol/L [facility] Creatinine [Mass/Vol] 2.27 mg/dL High 0.55 - 1.02 mg/dL [facility] GFR/1.73 sq M.predicted CKD-EPI (S/P/Bld) [Vol rate/Area] 26 Low 60 - PINF [facility] Glucose [Mass/Vol] 108 mg/dL High 74 - 106 mg/dL [facility] Interpretation and review of laboratory results Abnormal [facility] Potassium [Moles/Vol] 4.0 mmol/L 3.5 - 5.1 mmol/L [facility] Sodium [Moles/Vol] 139 mmol/L 136 - 145 mmol/L [facility] EGFR-NON AF [place] 21 Low 60 - PINF [facility] Urea nitrogen [Mass/Vol] 78.0 mg/dL Critically high 7.0 - 18.0 mg/dL [facility] Comment on above: RESULTS CALLED TO FANNIE STALEY LPN @BY Iwona Goff at 1039 Urea nitrogen/Creatinine [Mass ratio] 34.4 mg/mg [facility] Research Noteon 06-14-2023 Casual Shoe Inspector Authentication Interface Message Text ..Documentation of Human Investigation Informed Consent Process Informed Consent (Adult) IRB Screening/Consent Visit for study: Post Market Clinical Evaluation of Gamma 4: Prospective, Multicenter, Follow Up Study (MILEY) PI Dr. Colt Live SHORT TITLE: [place]LEY PI CONTACT NUMBER [phone] MARKETING CONTENT SPECIALIST Giovanna Serrano PHONE [phone] The above research study consent was explained [...] Time of informed consent 9:45am Normal [facility] ALL HGB HCTon 06-11-2023 Hematocrit (Bld) [Volume fraction] 27.3 % Low 36.0 - 48.0 % [facility] Hemoglobin (Bld) [Mass/Vol] 9.0 g/dL Low 12.0 - 16.0 g/dL [facility] Interpretation and review of laboratory results Abnormal [facility] Patient Instructionson 06-09 Casual Shoe Inspector Authentication Interface Message Text Weight bearing: weight [...] Dr. James Noriega who sees patients at [facility] [employer] [facility] Progress Noteson 06-09-2023 Casual Shoe Inspector Authentication Interface Message Text Doing well overall. Has had difficulties ambulating for months prior to fall. Has not been worked up much. Bilateral foot drop which was new in the past few months but present prior to surgery. Recommended she see neurology or spine surgeon near her [facility]. They are closer to [facility] and 1.5 hrs from here. They would prefer to see someone at [facility]. On eliquis. Incisions well healed. Ambulating [...] Dr. James Noriega who sees patients at [facility] XR FEMUR RIGHT MINIMUM 2 VIE WSon 06-09-2023 XR FEMUR RIGHT MINIMUM 2 VIEWS EXAMINATION: XR FEMUR RIGHT MINIMUM 2 VIEWSPRO/RT 06/09/2023 08:28 AM CLINICAL HISTORY: fu ASSOCIATED DIAGNOSIS: Closed displaced intertrochanteric fracture of right femur, initial encounter ([facility]) ORDERING PROVIDER: KAYDEN SMALLS NOTE: COMPARISON: None IMPRESSION: Threaded nail intramedullary ramon with distal screw fixation provides ORIF for previously noted comminuted intratrochanteric fracture. Overall alignment is nearly anatomic. Hardware is intact. Underlying osteopenia. Right femur MACRO: None Normal [facility] XR Femur - right 2 Viewson 0 06-09-2023 EXAMINATION: XR FEMU R RIGHT MINIMUM 2 VIEWSPRO/RT 06/09/2023 08:28 AM CLINICAL HISTORY: fu ASSOCIATED DIAGNOSIS: Closed displaced intertrochanteric fracture of right femur, initial encounter ([facility]) ORDERING PROVIDER: KAYDEN SMALLS NOTE: COMPARISON: None [...] intertrochanteric fracture of right femur, initial encounter ([facility]) ORDERING PROVIDER: KAYDEN LEE TECHNEARLE NOTE: COMPARISON: None IMPRESSION: Threaded nail intramedullary ramon with distal screw fixation provides ORIF for previously noted comminuted intratrochanteric fracture. Overall alignment is nearly anatomic. Hardware is intact. Underlying osteopenia. Right femur MACRO: None [facility] Radiology Study observation (narrative) [facility] XR HIP RIGHT W/ PELVIS MIN 2 -3 VIEWSon 06-09-2023 XR HIP RIGHT W/ PELVIS MIN 2-3 VIEWS EXAMINATION: XR HIP RIGHT W/ PELVIS MIN 2-3 VIEWSPRO/RT 06/09/2023 08:18 AM CLINICAL HISTORY: fu or pain ASSOCIATED DIAGNOSIS: Closed displaced intertrochanteric fracture of right femur, initial encounter ([facility]) ORDERING PROVIDER: KAYDEN LEE TECHNOLOGISTS NOTE: COMPARISON: [...] history. Right hip MACRO: None Normal [facility] XR Pelvis and Hip - right Vi ewson 06-09-2023 EXAMINATION: XR HIP RIGHT W/ PELVIS MIN 2-3 VIEWSPRO/RT 06/09/2023 08:18 AM CLINICAL HISTORY: fu or pain ASSOCIATED DIAGNOSIS: Closed displaced intertrochanteric fracture of right femur, initial encounter ([facility]) ORDERING PROVIDER: KAYDEN LEE TECHNOLOGISTS NOTE: COMPARISON: [...] intertrochanteric fracture of right femur, initial encounter ([facility]) ORDERING PROVIDER: KAYDEN LEE TECHNEARLE NOTE: COMPARISON: XR HIP RIGHT W/ PELVIS MIN 2-3 VIEWS 05/14/2023, 3:51 AM FINDINGS: IMPRESSION: Status post ORIF right intratrochanteric fracture. Email intramedullary ramon device. Alignment is essentially anatomic. Underlying osteopenia. 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 Surgical clips-presumably from cholecystectomy-correlate with history. Right hip MACRO: None [facility] Radiology Study observation (narrative) [facility] X[facility] Pelvis and Hip - right Vi ewsOrdered By: Gina Ruiz on 06-09-2023 [facility] Work Phone: Telephone Encounteron 2023 Casual Shoe Inspector Authentication Interface Message Text Pt unable to make 2/7 appt needs rescheduled please call facility at [phone] to reschedule can be any day after 9 am. Normal [facility] Telephone Encounteron 2023 Casual Shoe Inspector Authentication Interface Message Text What is the need: Medicare PHU SNF Review Situation: Patient within the 30 day readmission period Background: Attending Meng Whitaker MD Date of Admission 05/13/2023 Date of Discharge 05/18/2023 [facility] FINAL DIAGNOSES: Hospital Problems as of 05/18/2023 * (Principal) H/O traumatic fracture Assessment: Reviewed careport patient remains in SNF 05/18/2023 7:35 PM [facility] ([facility]) Recommendation: continue PHU SNF Review Process Normal [facility] Casual Shoe Inspector Authentication Interface Message Text Situation: F/U w [facility] Background: Emma calling to schedule Pt for F/U w [facility]. Pt seen in ED by [facility] on 05/13/23. ED discharge instructed F/U w provider Homardolly would like office to contact at earliest convenience to get Pt scheduled. Assessment: Please assist Recommendation: Basia can be reached at [phone] Normal [facility] Telephone Encounteron 2023 Casual Shoe Inspector Authentication Interface Message Text What is the need: Medicare PHU SNF Review Situation: Patient within the 30 day readmission period Background: Attending Meng Whitaker MD Date of Admission 05/13/2023 Date of Discharge 05/18/2023 [facility] FINAL DIAGNOSES: Hospital Problems as of 05/18/2023 * (Principal) H/O traumatic fracture Assessment: Reviewed [facility] patient remains in SNF 05/18/2023 7:35 PM EST [facility] (SNF) Recommendation: continue PHU SNF Review Process Elmo Allen RN Normal [facility] Telephone Encounteron 2023 Casual Shoe Inspector Authentication Interface Message Text Patient discharged to a SNF Name of SNF: [facility] Phone number: [phone] Patient enrolled in [facility] to begin discharge review Normal [facility] BASIC METABOLIC PANELon 05-03 Anion gap [Moles/Vol] 18 mmol/L Normal 10-20 [facility] Comment on above: Performed By: #### [id number] #### NURSING GLUCOSE PRO[facility] [address] [place], [address] Calcium [Mass/Vol] 9.1 mg/dL Normal 8.6-10.3 [facility] Comment on above: Result Comment: Note updated reference ranges. Performed By: #### [id number] #### NURSING GLUCOSE PROGRAM [address] [place], [address] Chloride [Moles/Vol] 100 mmol/L Normal 98-107 [facility] Comment on above: Result Comment: Note updated reference ranges. Performed By: #### [id number] #### NURSING GLUCOSE PROGRAM [address] [facility] [place], [address] CO2 [Moles/Vol] 25 mmol/L Normal 21-31 [facility] Comment on above: Result Comment: Note updated reference ranges. Performed By: #### 8 2948 #### NURSING GLUCOSE PROGRAM [address] [place], [address] Creatinine [Mass/Vol] 2.06 mg/dL High 0.60-1.20 [facility] Comment on above: Result Comment: Note updated reference ranges. Performed By: #### 8 2948 #### NURSING GLUCOSE PROGRAM [address] [place], [address] ESTIMATED GFR (CKD-EPI) 25 mL/min/1.73sqm Low >=60 [...] Inclusion of Race in Diagnosing Kidney Disease. [place] Journal of Kidney Diseases 2021;79(2):268-88.e1. 2. N Engl J Med 1 Vol. 385 Issue 19 Pages 9662-6679 Performed By: #### 8 2948 #### NURSING GLUCOSE PROGRAM [address] [place], [address] Glucose [Mass/Vol] 109 mg/dL Normal 74-109 [facility] Comment on above: Performed By: #### 8 2948 #### NURSING GLUCOSE PROGRAM [address] [place], [address] Potassium [Moles/Vol] 4.0 mmol/L Normal 3.5-5.0 [facility] Comment on above: Result Comment: Note updated reference ranges. Note updated reference ranges. Performed By: #### 8 2948 #### NURSING GLUCOSE PROGRAM [address] [place], [address] Sodium [Moles/Vol] 139 mmol/L Normal 136-145 [facility] Comment on above: Result Comment: Note updated reference ranges. Performed By: #### 8 2948 #### NURSING GLUCOSE PROGRAM [address] [place], [address] Urea nitrogen [Mass/Vol] 68 mg/dL High 7-25 [facility] Comment on above: Result Comment: Note updated reference ranges. Performed By: #### 8 2948 #### NURSING GLUCOSE PROGRAM [address] [place], [address] COMPLETE BLOOD COUNTon 05-18 Erythrocyte distribution width (RBC) [Ratio] 14.0 % Normal 11.5-14.[address] [facility] Comment on above: Performed By: #### 8 2948 #### NURSING GLUCOSE PROGRAM [address] [place], [address] Hematocrit (Bld) [Volume fraction] 24.3 % Low 36.0-46.[address] [facility] Comment on above: Performed By: #### 8 2948 #### NURSING GLUCOSE PROGRAM [address] [place], [address] Hemoglobin (Bld) [Mass/Vol] 8.3 g/dL Low 12.0-15.[address] [facility] Comment on above: Performed By: #### 8 2948 #### NURSING GLUCOSE PROGRAM [address] [place] [address], [address] MCH (RBC) [Entitic mass] 31.5 pg Normal 26.0-34.[address] [facility] Comment on above: Performed By: #### 8 2948 #### NURSING GLUCOSE PROGRAM [address] [place] [address], [address] MCHC (RBC) [Mass/Vol] 34.3 g/dL Normal 32.0-35.[address] [facility] Comment on above: Performed By: #### 8 2948 #### NURSING GLUCOSE PROGRAM [address] [place], [address] MCV (RBC) [Entitic vol] 92 fL Normal 80-[address] [facility] Comment on above: Performed By: #### 8 2948 #### NURSING GLUCOSE PROGRAM [address] [place] [address], [address] Platelet mean volume (Bld) [Entitic vol] 7.5 fL Normal 7.5-11.[address] Comment on above: Performed By: #### 8 2948 #### NURSING GLUCOSE PROGRAM [address] [place], [address] Platelets (Bld) [#/Vol] 252 10*3/uL Normal 150-[address] [facility] Comment on above: Performed By: #### 8 2948 #### NURSING GLUCOSE PROGRAM [address] [place] [address], [address] RBC (Bld) [#/Vol] 2.64 10*6/uL Low 4.00-5.20 [facility] Comment on above: Performed By: #### 8 2948 #### NURSING GLUCOSE PROGRAM [address] [place], [address] WBC (Bld) [#/Vol] 10.0 10*3/uL Normal 4.5-11.5 [facility] Comment on above: Performed By: #### 8 2948 #### NURSING GLUCOSE PROGRAM [address] [place], [address] Care Plan Noteon 05-18-2023 Casual Shoe Inspector Authentication Interface Message Text Problem: Routine Care: [...] during hospital stay Outcome: Progressing Normal [facility] Casual Shoe Inspector Authentication Interface Message Text Nursing staff notified [...] am for continued possible dehydration. Normal [facility] Consultson 05-18-2023 Casual Shoe Inspector Authentication Interface Message Text Dietitian vs DietaryTech: Power Plant Operations Manager Diet Wire Mill Rover Nutrition Screening Reason for visit: LOS 5 [...] Fluid Accumulation: non-pitting Diet Order: Regular; DM [place]; Dental Mechanical Soft Supplements: boost glucose max [...] at this time. Comments: intake fair. C-diff+. [facility] 05/[place] - recommendations for Soft diet/thin liquids. Oral supplements are in place per orders. Will follow. Number of Points: 0 Nutritional Plan of Care: Less than or equal to 6 points: At this time, patient is at low nutrition risk. DTR to provide routine follow up. Will continue to follow, Kasey Brand Diet Wire Mill Rover Pager [phone] Normal [facility] Discharge Planning Noteon Casual Shoe Inspector Authentication Interface Message Text CASE MANAGEMENT/SOCIAL WORK SNF DC NOTE: Pt has been cleared for transfer to SNF on this date. Pt will be transferred to [facility] via [facility] [place] ([id number]) at 4PM. Nursing report may be called to [phone] Support person notified: Kirstin Gardner ([phone]) Patient/Family, team aware of above and agreeable. For discharge, please ensure the following is completed: MD to place DC order, reconcile meds, and print narcotics to go with patient to SNF Electrical And Radio Mock Up Mechanic to print Discharge Summary, [place], Summary of Care, Narcotic Scripts, and Signature Page and place in a packet to be given to hazardous materials tanker driver If transport/discharge needs to be adjusted/cancelled, team (MD/RN) to cancel transport, update support person, and update receiving facility. Lidia Morel, LATCHER, SHEARING SUPERVISOR Normal [facility] GLUCOSE, FINGERSTICK-IN OFFI CEon 05-18-2023 Glucose [Mass/Vol] 143 mg/dL High 80-116 [facility] Comment on above: Performed By: #### 8 2948 #### NURSING GLUCOSE PROGRAM [address] [place] [address], [address] Glucose [Mass/Vol] 144 mg/dL High 80-116 [facility] Comment on above: Performed By: #### C R BGA, CR GLU, CR ICA, CR COOX, CR LYTES, LACT #### [facility] [address] [place] [address], [address] Glucose [Mass/Vol] 140 mg/dL High 80-116 [facility] Comment on above: Performed By: #### 8 2948 #### NURSING GLUCOSE PROGRAM [address] [place] [address], [address] HEMOGLOBIN A1Con 05-18-2023 Glucose [Mass/Vol] 128 mg/dL Normal [facility] Comment on above: Performed By: #### C R BGA, CR GLU, CR ICA, CR COOX, CR LYTES, LACT #### [facility] [address] [place], [place], HbA1c (Bld) [Mass fraction] 6.1 % High 4.0-5.6 [facility] Comment on above: Performed By: #### C R BGA, CR GLU, CR ICA, CR COOX, CR LYTES, LACT #### S PATHOLOGY LABORATORY [address] [place], [place], MAGNESIUMon 05-18-2023 Magnesium [Mass/Vol] 1.6 mg/dL Low 1.9-2.7 [facility] Comment on above: Result Comment: Note updated reference ranges. Performed By: #### 8 2948 #### NURSING GLUCOSE PROGRAM [address] [place], [address] Progress Noteson 05-18-2023 Casual Shoe Inspector Authentication Interface Message Text ---- GENERAL INFORMATION --- TRAUMA FLOOR - STAFF NOTE Patient Name: Kate Hagen Admission Date: 05/13/2023 Patient seen and examined on 05/18/23 -- INTERVAL HISTORY/EVENTS Background: Kate Hagen is a 72 year [...] follow up imaging reviewed. No new imaging ----- ASSESSMENT AND PLAN -------- Diagnoses: Mechanical fall from standing R displaced IT fracture Left mandibular fracture with dislocated L TMJ joint Acute pain due to trauma Acute blood loss anemia Acute post-op p (more content not included)... Normal [facility] URINALYSIS WITH REFLEX CULTU RE PERFORMABLEon 05-18-2023 Glucose Ql (U) Negative Normal Negative [facility] Comment on above: Order Comment: A [...] Performed By: #### u rinalysiswcul ####[facility] [id number] [place], [address]#### C URINE ####[facility] [address] [place], [place] Protein (U) [Mass/Vol] 30 mg/dL Abnormal Negative [facility] Comment on above: Order Comment: A [...] around 50%) Performed By: #### u rinalysiswcul ####[facility] PATHOLOGY [id number] [place], [place], #### C URINE ####[facility] Cnawyceuf[address] [place], [place] SQUAMOUS EPITHELIAL 3-5 Normal 0-[address] Comment on above: Order Comment: [...] around 50%) Performed By: #### u rinalysiswcul ####[facility] PATHOLOGY [id number] [place], [place], #### C URINE ####[facility] Jcgtfnsbo7972 [place], [place] U APPEAR Clear Normal Clear The [facility] Comment on above: Order Comment: [...] around 50%) Performed By: #### u rinalysiswcul ####[facility] PATHOLOGY [id number] [place], [place], #### C URINE ####[facility] Ugnaewrmn3105 [place], [place] U BACTERIA Few Normal [facility] Comment on above: Order Comment: [...] around 50%) Performed By: #### u rinalysiswcul ####[facility] PATHOLOGY [id number] [place], [place], #### C URINE ####[facility] Nmdlarcfv1913 [place], [place] U BILI Negative Normal Negative [facility] Comment on above: Order Comment: [...] around 50%) Performed By: #### u rinalysiswcul ####[facility] PATHOLOGY [id number] [place], [place], #### C URINE ####[facility] Fvgnaownb1512 [place], [place] U BLOOD Trace Abnormal Negative [facility] Comment on above: Order Comment: A [...] around 50%) Performed By: #### u rinalysiswcul ####[facility] PATHOLOGY [id number] [place], [place], #### C URINE ####[facility] Xlakyxzwv3003 [place], [place] U COLOR Colorless Normal Colorless [facility] Comment on above: Order Comment: A [...] around 50%) Performed By: #### u rinalysiswcul ####[facility] PATHOLOGY [id number] [place], [place], #### C URINE ####[facility] J[address] [place], [place] [address] U KETONE Negative Normal Negative The [facility] Comment on above: Order Comment: [...] around 50%) Performed By: #### u rinalysiswcul ####[facility] PATHOLOGY [id number] [place], [place], #### C URINE ####[facility] [address]rx[address]vy[address] [place], [place] [id number] U LEUK Positive Abnormal Negative [facility] Comment on above: Order Comment: [...] for pyuria. Performed By: #### u rinalysiswcul ####[facility] PATHOLOGY [id number] [place], [place], #### C URINE ####[facility] Fsmfsnxrf6003 [place], [place] U MUCOUS Present Normal The [facility] Comment on above: Order Comment: [...] around 50%) Performed By: #### u rinalysiswcul ####[facility] PATH[facility] [id number] [place], [place], #### C URINE ####[facility] Ljadpnerg0645 [place], [place] U NITRITE Negative Normal Negative The [facility] Comment on above: Order Comment: [...] around 50%) Performed By: #### u rinalysiswcul ####[facility] PATHOLOG[facility] [id number] [place], [place], #### C URINE ####[facility] Zkmoyxggr6434 [place], [place] U PH 6.0 Normal 5.0-8.[address] [facility] Comment on above: Order Comment: [...] around 50%) Performed By: #### u rinalysiswcul ####[facility] PATHOLOGY [id number] [place], [place], #### C URINE ####[facility] Gytkpxxqb3444 [place], [place] U RBC 0-2 Normal 0-[address] [facility] Comment on above: Order Comment: [...] around 50%) Performed By: #### u rinalysiswcul ####[facility] PATHOLOG[facility] [id number] [place], [place], #### C URINE ####[facility] Cgmawmyok6789 [place], [place] U SG 1.011 Normal <=1.[address] [facility] Comment on above: Order Comment: [...] around 50%) Performed By: #### u rinalysiswcul ####[facility] [id number] [place], [place], #### C URINE ####[facility] Xgfgwumob0243 [place], [place] U UROBILI Negative Normal Negative The [facility] Comment on above: Order Comment: [...] around 50%) Performed By: #### u rinalysiswcul ####[facility] PATH[facility] [id number] [place], [place], #### C URINE ####[facility] Jlikgklur4311 [place], [place] U WBC 11-30 Abnormal 0-[address] [facility] Comment on above: Order Comment: [...] around 50%) Performed By: #### u rinalysiswcul ####[facility] [id number] [place], [place], #### C URINE ####[facility] Lujyiolqy6113 [place], [place] URINE CULTUREon 05-18-2023 Bacteria identified Cx Nom (U) C URINE: Positive Culture Report ENTEROCOCCUS FAECIUM >100,000 CFU/ml Enterococcus faecium Normal [facility] Comment on above: Performed By: #### u rinalysiswcul ####[facility] PATHOLOGY [id number] [place] [address], #### C URINE ####[facility] Fteszatni[address] [place], [place] [id number] GISSEL ORGANISM: ENTEROCOCCUS FAECIUM ANTIBIOTIC GISSEL SENSITIVITY Ampicillin >= 32 R Ciprofloxacin >= 8 R Linezolid 2 S Vancomycin <= 0.5 S Tetracycline >= 16 R Nitrofurantoin [address] [facility] Comment on above: Performed By: #### u rinalysiswcul ####[facility] [id number] [place], [place], #### C URINE ####[facility] Ghhuxkswg[address] [place], [place] [id number] BASIC METABOLIC PANELon 05-03 Anion gap [Moles/Vol] 19 mmol/L Normal 10-[address] [facility] Comment on above: Performed By: #### C BC #### [facility]OR[facility]ORY [address] [place] [address], Calcium [Mass/Vol] 8.5 mg/dL Low 8.6-10.3 [facility] Comment on above: Result Comment: Note updated reference ranges. Performed By: #### C BC #### S PATHOLOGY LABORATORY [address] [place], [place], Chloride [Moles/Vol] 100 mmol/L Normal 98-107 [facility] Comment on above: Result Comment: Note updated reference ranges. Performed By: #### C BC #### [facility] [address] [place], CO2 [Moles/Vol] 24 mmol/L Normal 21-31 [facility] Comment on above: Result Comment: Note updated reference ranges. Performed By: #### C BC #### S PATHOLOGY LABORATORY [address] [place], [place], Creatinine [Mass/Vol] 2.24 mg/dL High 0.60-1.20 [facility] Comment on above: Result Comment: Note updated reference ranges. Performed By: #### C BC #### S PATHOLOGY LABORATORY [address] [place], [place], ESTIMATED GFR (CKD-EPI) 22 mL/min/1.73sqm Low >=60 [facility] Comment on above: Result Comment: 2020 [...] Inclusion of Race in Diagnosing Kidney Disease. [place] Journal of Kidney Diseases 202;79(2):268-88.e1. 2. N Engl J Med 1 Vol. 385 Issue 19 Pages 4900-0674 Performed By: #### C BC #### [facility] [address] [place], [place], Glucose [Mass/Vol] 116 mg/dL High 74-[address] [facility] Comment on above: Performed By: #### C BC #### S PATHOLOGY LABORATORY [address] [place], [place], Potassium [Moles/Vol] 3.8 mmol/L Normal 3.5-5.[address] [facility] Comment on above: Result Comment: Note updated reference ranges. Note updated reference ranges. Performed By: #### C BC #### [facility] LABORATORY [address] [place] [address], Sodium [Moles/Vol] 139 mmol/L Normal 136-[address] [facility] Comment on above: Result Comment: Note updated reference ranges. Performed By: #### C BC #### [facility]OR[facility] [address] [place] [address], Urea nitrogen [Mass/Vol] 65 mg/dL High 7-[address] [facility] Comment on above: Result Comment: Note updated reference ranges. Performed By: #### C BC #### [facility]OR[facility] [address] [place] [address], COMPLETE BLOOD COUNTon 05-17 Erythrocyte distribution width (RBC) [Ratio] 14.0 % Normal 11.5-14.[address] [facility] Comment on above: Performed By: #### C BC #### [facility] [address] [place] [address], Hematocrit (Bld) [Volume fraction] 23.3 % Low 36.0-46.[address] [facility] Comment on above: Performed By: #### C BC #### [facility] [address] [place] [address], Hemoglobin (Bld) [Mass/Vol] 7.9 g/dL Low 12.0-15.[address] [facility] Comment on above: Performed By: #### C BC #### [facility] [address] [place] [address], MCH (RBC) [Entitic mass] 31.1 pg Normal 26.0-34.[address] [facility] Comment on above: Performed By: #### C BC #### [facility] [address] [place] [address], MCHC (RBC) [Mass/Vol] 33.9 g/dL Normal 32.0-35.[address] [facility] Comment on above: Performed By: #### C BC #### [facility] [address] [place] [address], MCV (RBC) [Entitic vol] 92 fL Normal 80-[address] [facility] Comment on above: Performed By: #### C BC #### [facility] [address] [place], [place], Platelet mean volume (Bld) [Entitic vol] 7.4 fL Low 7.5-11.2 [facility] Comment on above: Performed By: #### C BC #### [facility] [address] [place], [place], Platelets (Bld) [#/Vol] 225 10*3/uL Normal 150-[address] [facility] Comment on above: Performed By: #### C BC #### [facility] [address] [place], [place], RBC (Bld) [#/Vol] 2.55 10*6/uL Low 4.00-5.[address] [facility] Comment on above: Performed By: #### C BC #### [facility] [address] [place], WBC (Bld) [#/Vol] 9.8 10*3/uL Normal 4.5-11.[address] [facility] Comment on above: Performed By: #### C BC #### [facility] [address] [place] [address], Care Plan Noteon 05-17-2023 Casual Shoe Inspector Authentication Interface Message Text Problem: Routine Care: [...] during hospital stay Outcome: Progressing Normal [facility] Consultson 05-17-2023 Casual Shoe Inspector Authentication Interface Message Text Modified Barium Swallow Study (MBSS) Time of service: 2558-5477 Duration: 10 minutes HPI Reason for Admit: [...] past medical history. S Patient referred for [facility] 2/2 further evaluation of oropharyngeal phases of swallow function. Pain: The patient denies pain at this time. Cognitive Status: The patient is alert. Respiration: The patient is on 3L of O2 via NC. Collar: N/A Phonation: WFL Dentition: O Videofluoroscopic Swallow Study was conducted in the lateral projections by Speech-Language Pathologist Berta Harrison M.A., CCC-STEEL BURNER, in collaboration with Radiology Department, to evaluate oropharyngeal swallow function. Anatomic view under fluoroscopy Structural Variations: Cricopharyngeal bar. Post-Surgical Changes: N/A Lines, Tubes, and Collars: N/A Foreign Bodies: N/A P.O. barium contrast trials Varibar Thin liquid, Varibar [place], Varibar Pudding, solid coated in Varibar Pudding, [...] folds, and is ejected from the airway. [place] Thick Liquid/ IDDSI 2 Mildly-thick liquid Mode [...] l (more content not included)... Normal [facility] [place] MODIFIED BARIUM SWALLOWon 05-17-2023 [place] MODIFIED BARIUM SWALLOW EXAMINATION: [place] MODIFIED BARIUM SWALLOW 05/17/2023 02:43 PM CLINICAL HISTORY: persisent coughing with PO intake following previous STEEL BURNER evaluation ASSOCIATED DIAGNOSIS: ORDERING PROVIDER: JOHNSON CHAU [...] #### 8 2948 #### NURSING GLUCOSE PROGRAM [address] [place] [address], [address] Glucose [Mass/Vol] 138 mg/dL High 80-116 [facility] Comment on above: Performed By: #### C BC #### [facility] [address] [place] [address], Glucose [Mass/Vol] 153 mg/dL High 80-116 [facility] Comment on above: Performed By: #### C R BGA, CR GLU, CR ICA, CR COOX, CR LYTES, LACT #### [facility] [address] [place] [address], Glucose [Mass/Vol] 132 mg/dL High 80-116 [facility] Comment on above: Performed By: #### 8 2948 #### NURSING GLUCOSE PROGRAM [address] [place] [address], [address] [facility] 05-17-2023 Casual Shoe Inspector Authentication Interface Message Text Social Work/Case Management: Reason for placement: PT/OT Therapies Patient level of care required : Skilled Applicant's potential for returning to community: Convalescent stay:<30 days Prognosis: Good Rehab Potential: Improve Mental/Behavioral status:Alert Affect: Calm Social Work Assessment Functional status prior to admission: Independent functional ambulation with cane Community agencies active with patient: N/A Support system: Family Capacity for independent living/mcfp plan: Return home Other hospital admissions within the past 60 days: No Other pertinent problems: Normal [facility] MAGNESIUMon 05-17-2023 Magnesium [Mass/Vol] 2.0 mg/dL Normal 1.6-2.8 [facility] Comment on above: Performed By: #### C R BGA, CR GLU, CR ICA, CR COOX, CR LYTES, LACT #### [facility] [address] [place], [address] Progress Noteson 05-17-2023 Casual Shoe Inspector Authentication Interface Message Text PT/OT are recommending SNF. Reviewed therapy recommendations with pt and daughter, Kirstin ([phone]) CM/SW provided pt's daughter the quality and resource use measure data from available post-acute (PAC) providers, that best align with the patient's treatment goals and preferences from the medicare.gov compare site for SNFs. 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 Referrals were sent to: 1.) [facility] 2.) [facility] Awaiting review. KONRAD Kevin, SHEARING SUPERVISOR ADDENDUM 4:00PM Obtained pt's SS# from daughter and updated [facility] as requested. Awaiting final determination. KONRAD Kevin, SHEARING SUPERVISOR Normal [facility] Casual Shoe Inspector Authentication Interface Message Text ---- GENERAL INFORMATION --- TRAUMA FLOOR - STAFF NOTE Patient Name: Kate Hagen Admission Date: 05/13/2023 Patient seen and examined on 05/17/23 -- INTERVAL HISTORY/EVENTS Background: Kate Hagen is a 72 year [...] coughing with PO intake. Previously evaluated by [facility], who recommended MBS with change in respiratory [...] Commen (more content not included)... Normal [facility] TYPE AND SCREENon 05-17-2023 ABO and Rh group Nom (Bld) Blood group O Rh(D) positive Normal [facility] Comment on above: Performed By: #### C BC #### S PATHOLOGY LABORATORY [address] [place] [address], ABSC INT Negative Normal [facility] Comment on above: Performed By: #### C BC #### S PATH[facility] LAB[facility]ATORY [address] [place] [address], ANTI FXA-UNFRACT. HEPARINon 05-16-2023 ANTI FXA-UNFRACT. HEPARIN 0.21 IU/mL Normal <=1.20 [facility] Comment on above: Order Comment: The r ecommended therapeutic range for treatment of thrombosis with Unfractionated Heparin is 0.3-0.7 IU/mL.The recommended range for VTE prophylaxis with Unfractionated Heparin is 0.1-0.3 IU/mL Performed By: #### C R BGA, CR GLU, CR ICA, CR COOX, CR LYTES, LACT #### S PATH[facility] LABORATORY [address] [place] [address], BASIC METABOLIC PANELon 05-03 Anion gap [Moles/Vol] 15 mmol/L Normal 10-[address] [facility] Comment on above: Performed By: #### C BC #### [facility] PATHOLOG[facility] LABORATORY [address] [place] [address], Calcium [Mass/Vol] 8.2 mg/dL Low 8.6-10.[address] [facility] Comment on above: Result Comment: Note updated reference ranges. Performed By: #### C BC #### S PATHOLOGY LABORATORY [address] [place] [address], Chloride [Moles/Vol] 100 mmol/L Normal 98-[address] [facility] Comment on above: Result Comment: Note updated reference ranges. Performed By: #### C BC #### [facility] PATH[facility] LABORATORY [address] [place] [address], CO2 [Moles/Vol] 25 mmol/L Normal 21-[address] [facility] Comment on above: Result Comment: Note updated reference ranges. Performed By: #### C BC #### [facility] PATH[facility] LABORATORY [address] [place] [address], Creatinine [Mass/Vol] 2.36 mg/dL High 0.60-1.[address] [facility] Comment on above: Result Comment: Note updated reference ranges. Performed By: #### C BC #### [facility] PATH[facility]ORATORY [address] [place] [address], ESTIMATED GFR (CKD-EPI) 21 mL/min/1.73sqm Low >=60 [facility] Comment on above: Result Comment: 2020 [...] Inclusion of Race in Diagnosing Kidney Disease. [place] Journal of Kidney Diseases 2021;79(2):268-88.e1. 2. N Engl J Med 1 Vol. 385 Issue 19 Pages 3473-0513 Performed By: #### C BC #### S PATHOLOGY LABORATORY [address] [place], [place], Glucose [Mass/Vol] 146 mg/dL High 74-109 [facility] Comment on above: Performed By: #### C BC #### S PATHOLOG[facility] LABORATORY [address] [place], [place], Potassium [Moles/Vol] 3.9 mmol/L Normal 3.5-5.0 [facility] Comment on above: Result Comment: Note updated reference ranges. Note updated reference ranges. Performed By: #### C BC #### [facility] PATH[facility]ORATORY [address] [place], [place], Sodium [Moles/Vol] 136 mmol/L Normal 136-145 [facility] Comment on above: Result Comment: Note updated reference ranges. Performed By: #### C BC #### S PATH[facility] LAB[facility] [address] [place], [place], Urea nitrogen [Mass/Vol] 61 mg/dL High 7-25 [facility] Comment on above: Result Comment: Note updated reference ranges. Performed By: #### C BC #### [facility] PATH[facility] [address] [place], COMPLETE BLOOD COUNTon 05-16 Erythrocyte distribution width (RBC) [Ratio] 14.1 % Normal 11.5-14.5 [facility] Comment on above: Performed By: #### C BC #### S PATH[facility] LAB[facility]ATORY [address] [place], [place], Hematocrit (Bld) [Volume fraction] 23.8 % Low 36.0-46.0 [facility] Comment on above: Performed By: #### C BC #### S PATHOLOG[facility] LABORATORY [address] [place], Hemoglobin (Bld) [Mass/Vol] 8.1 g/dL Low 12.0-15.0 [facility] Comment on above: Performed By: #### C BC #### S PATHOLOG[facility] LAB[facility]ATORY [address] [place], [place], MCH (RBC) [Entitic mass] 31.2 pg Normal 26.0-34.[address] [facility] Comment on above: Performed By: #### C BC #### S PATHOLOGY LABORATORY [address] [place], MCHC (RBC) [Mass/Vol] 34.0 g/dL Normal 32.0-35.[address] [facility] Comment on above: Performed By: #### C BC #### [facility] PATH[facility]OR[facility] [address] [place], MCV (RBC) [Entitic vol] 92 fL Normal 80-[address] [facility] Comment on above: Performed By: #### C BC #### [facility] [address] [place], [place], Platelet mean volume (Bld) [Entitic vol] 7.2 fL Low 7.5-11.[address] [facility] Comment on above: Performed By: #### C BC #### [facility] PATH[facility] [address] [place], [place], Platelets (Bld) [#/Vol] 218 10*3/uL Normal 150-[address] [facility] [facility] Comment on above: Performed By: #### C BC #### [facility] PATH[facility] [address] [place], [place], RBC (Bld) [#/Vol] 2.59 10*6/uL Low 4.00-5.[address] [facility] Comment on above: Performed By: #### C BC #### [facility] PATH[facility] [address] [place], [place], WBC (Bld) [#/Vol] 9.8 10*3/uL Normal 4.5-11.[address] [facility] Comment on above: Performed By: #### C BC #### S PATHOLOGY LABORATORY [address] [place], [place], Erythrocyte distribution width (RBC) [Ratio] 14.2 % Normal 11.5-14.5 [facility] Comment on above: Performed By: #### C BC ####[facility] PATHOLOGY [id number] [place], [place], Hematocrit (Bld) [Volume fraction] 18.8 % Critically low 36.0-46.[address] [facility] Comment on above: Performed By: #### C BC ####[facility] PATHOLOGY [id number] [place], [place], Hemoglobin (Bld) [Mass/Vol] 6.3 g/dL Critically low 12.0-15.[address] [facility] Comment on above: Performed By: #### C BC ####[facility] PATHOLOGY [id number] [place], [place], MCH (RBC) [Entitic mass] 30.8 pg Normal 26.0-34.0 [facility] Comment on above: Performed By: #### C BC ####[facility] PATHOLOGY [id number] [place], [place], MCHC (RBC) [Mass/Vol] 33.5 g/dL Normal 32.0-35.[address] [facility] Comment on above: Performed By: #### C BC ####[facility] PATHOLOGY [id number] [place], MCV (RBC) [Entitic vol] 92 fL Normal 80-[address] [facility] Comment on above: Performed By: #### C BC ####[facility] PATHOLOGY [id number] [place], [place], Platelet mean volume (Bld) [Entitic vol] 7.4 fL Low 7.5-11.[address] [facility] Comment on above: Performed By: #### C BC ####[facility] PATHOLOGY [id number] [place], [place], Platelets (Bld) [#/Vol] 217 10*3/uL Normal 150-[address] [facility] Comment on above: Performed By: #### C BC ####[facility] PATHOLOGY [id number] [place], RBC (Bld) [#/Vol] 2.04 10*6/uL Low 4.00-5.[address] [facility] Comment on above: Performed By: #### C BC ####[facility] PATHOLOGY [id number] [place], WBC (Bld) [#/Vol] 9.3 10*3/uL Normal 4.5-11.[address] [facility] Comment on above: Performed By: #### C BC ####[facility] PATHOLOGY [id number] [place], Erythrocyte distribution width (RBC) [Ratio] 13.9 % Normal 11.5-14.[address] [facility] Comment on above: Performed By: #### C BC ####[facility] PATHOLOGY [id number] [place], Hematocrit (Bld) [Volume fraction] 18.9 % Critically low 36.0-46.[address] [facility] Comment on above: Performed By: #### C BC ####[facility] PATHOLOGY [id number] [place], Hemoglobin (Bld) [Mass/Vol] 6.5 g/dL Critically low 12.0-15.[address] [facility] Comment on above: Performed By: #### C BC ####[facility] PATHOLOGY [id number] [place], MCH (RBC) [Entitic mass] 31.5 pg Normal 26.0-34.[address] [facility] Comment on above: Performed By: #### C BC ####[facility] PATHOLOGY [id number] [place], MCHC (RBC) [Mass/Vol] 34.6 g/dL Normal 32.0-35.[address] [facility] Comment on above: Performed By: #### C BC ####[facility] PATHOLOGY [id number] [place], MCV (RBC) [Entitic vol] 91 fL Normal 80-[address] [facility] Comment on above: Performed By: #### C BC ####[facility] PATHOLOGY [id number] [place], Platelet mean volume (Bld) [Entitic vol] 7.5 fL Normal 7.5-11.2 [facility] Comment on above: Performed By: #### C BC ####S PATHOLOGY [id number] [place], Platelets (Bld) [#/Vol] 217 10*3/uL Normal 150-400 [facility] Comment on above: Performed By: #### C BC ####S PATHOLOGY [id number] [place], [place], RBC (Bld) [#/Vol] 2.07 10*6/uL Low 4.00-5.[address] [facility] [facility] Comment on above: Performed By: #### C BC ####S PATHOLOGY [id number] [place], WBC (Bld) [#/Vol] 10.2 10*3/uL Normal 4.5-11.5 [facility] Comment on above: Performed By: #### C BC ####[facility] PATHOLOGY [id number] [place], [place], Care Plan Noteon 05-16-2023 Casual Shoe Inspector Authentication Interface Message Text Problem: Routine Care: [...] above: Performed By: #### C BC #### [facility] PATH[facility] LABORATORY [address] [place] [address], Glucose [Mass/Vol] 134 mg/dL High 80-116 [facility] Comment on above: Performed By: #### C R BGA, CR GLU, CR ICA, CR COOX, CR LYTES, LACT #### [facility] PATH[facility] LABORATORY [address] [place], [place], Glucose [Mass/Vol] 156 mg/dL High 80-[address] [facility] Comment on above: Performed By: #### C R BGA, CR GLU, CR ICA, CR COOX, CR LYTES, LACT #### [facility] LABORAT[facility] [address] [place], [place], Glucose [Mass/Vol] 132 mg/dL High 80-[address] [facility] Comment on above: Performed By: #### 8 2948 ####NURSING GLUCOSE [id number] [place], [address] LEVETIRACETAMon 05-16-2023 LEVETIRA 22.4 ug/mL Normal 6.0-46.0 [facility] Comment on above: Performed By: #### C R BGA, CR GLU, CR ICA, CR COOX, CR LYTES, LACT #### [facility] [address] [place], [place], MAGNESIUMon 05-16-2023 Magnesium [Mass/Vol] 2.1 mg/dL Normal 1.6-2.8 [facility] Comment on above: Performed By: #### C BC #### [facility] [address] [place], [place], Progress Noteson 05-16-2023 Casual Shoe Inspector Authentication Interface Message Text ---- GENERAL INFORMATION --- TRAUMA FLOOR - STAFF NOTE Patient Name: Kate Hagen Admission Date: 05/13/2023 Patient seen and examined on 05/16/23 -- INTERVAL HISTORY/EVENTS Background: Kate Hagen is a 72 year [...] with RN. States pain today is a 7-12/10. Compressive wrap removed from leg. Labs: Na [...] Intake/Output Summary (Last 24 hours) at 05/16/2023 06 Last data filed at 05/16/2023 0300 Gross [...] (PERSONALLY REVIEWED) No new imaging following surgery. ----- ASSESSMENT AND PLAN -------- Diagnoses: Mechanical fall from standing R displaced IT fracture Left mandibular fracture with dislocated L TMJ joint Acute pain due to trauma Acute blood loss anemia Acute post-op pain Polypharmacy ELI on CKD Incidental Findings: None on imaging obtained at [facility] ([facility], 05/14/23) Plan: Neurological: Acute pain due to trauma, acute post-op pain. Hx (more content not included)... Normal [facility] Casual Shoe Inspector Authentication Interface Message Text /SCOTTIE Valles notified of critical Hematocrit and Hemoglobin value of 18.8 and 6.3. /SCOTTIE Valles read back critical results. New orders received. Normal [facility] RED BLOOD CELL COMPONENTon 0 05-16-2023 BB ORDER ITEM Product status info to follow Normal [facility] Comment on above: Performed By: #### R EMILIANO ####[facility] [id number] [place], [place], RED BLOOD CELL UNIT STATUSon 05-16-2023 BLOOD PRODUCT CODE [id number] Normal [facility] Comment on above: Performed By: #### C BC #### [facility] [address] [place] [address], BLOOD PRODUCT DESCRIPTION Red Blood Cells Normal [facility] Comment on above: Performed By: #### C BC #### [facility] [address] [place], [place], BLOOD PRODUCT STATUS Transfused Normal [facility] Comment on above: Performed By: #### C BC #### [facility] [address] [place], BLOOD PRODUCT UNIT INFO [id number] Normal [facility] Comment on above: Performed By: #### C BC #### [facility] [address] [place] [address], BLOOD PRODUCT UNIT TYPE 5100 Normal [address] [facility] Comment on above: Result Comment: O Po s Performed By: #### C BC #### [facility] LABORATORY [address] [place], [place], CROSSMATCH INTERPRETATION Compatible (E) Normal The [facility] Comment on above: Performed By: #### C BC #### [facility] LABORATORY [address] [place], [place], VITAMIN D, 25-HYDROXYon 05-03 VITD25 54 ng/mL Normal 30-[address] [facility] Comment on above: Order Comment: Defic ient : <20.0 ng/mLInsufficient : 20.0-29.9 ng/mLSufficient : 30.0 - 100.0 ng/mLPotential Toxicity : >100.0 ng/mL Performed By: #### V ITD25 ####[facility] PATHOLOGY [id number] [place], [place], BASIC METABOLIC PANELon 05-03 Anion gap [Moles/Vol] 19 mmol/L Normal 10-[address] [facility] Comment on above: Performed By: #### C R BGA, CR GLU, CR ICA, CR COOX, CR LYTES, LACT #### [facility] PATH[facility] LABORATORY [address] [place] [address], Calcium [Mass/Vol] 7.7 mg/dL Low 8.6-10.[address] [facility] Comment on above: Result Comment: Note updated reference ranges. Performed By: #### C R BGA, CR GLU, CR ICA, CR COOX, CR LYTES, LACT #### S PATHOLOGY LABORATORY [address] [place], [place], Chloride [Moles/Vol] 98 mmol/L Normal 98-[address] [facility] Comment on above: Result Comment: Note updated reference ranges. Performed By: #### C R BGA, CR GLU, CR ICA, CR COOX, CR LYTES, LACT #### S PATHOLOGY LABORATORY [address] [place] [address], CO2 [Moles/Vol] 22 mmol/L Normal 21-[address] [facility] Comment on above: Result Comment: Note updated reference ranges. Performed By: #### C R BGA, CR GLU, CR ICA, CR COOX, CR LYTES, LACT #### S PATHOLOGY LABORATORY [address] [place] [address], Creatinine [Mass/Vol] 2.26 mg/dL High 0.60-1.20 [facility] Comment on above: Result Comment: Note updated reference ranges. Performed By: #### C R BGA, CR GLU, CR ICA, CR COOX, CR LYTES, LACT #### [facility] PATH[facility]ORATORY [address] [place] [address], ESTIMATED GFR (CKD-EPI) 22 mL/min/1.73sqm Low >=60 [facility] Comment on above: Result Comment: 2020 [...] Inclusion of Race in Diagnosing Kidney Disease. [place] Journal of Kidney Diseases 2021;79(2):268-88.e1. 2. N Engl J Med 2020 Vol. 385 Issue 19 Pages 7000-6322 Performed By: #### C R BGA, CR GLU, CR ICA, CR COOX, CR LYTES, LACT #### [facility] PATH[facility] LABORATORY [address] [place] [address], Glucose [Mass/Vol] 126 mg/dL High 74-[address] [facility] Comment on above: Performed By: #### C R BGA, CR GLU, CR ICA, CR COOX, CR LYTES, LACT #### [facility] PATH[facility] LABORATORY [address] [place] [address], Potassium [Moles/Vol] 4.0 mmol/L Normal 3.5-5.0 [facility] Comment on above: Result Comment: Note updated reference ranges. Note updated reference ranges. Performed By: #### C R BGA, CR GLU, CR ICA, CR COOX, CR LYTES, LACT #### [facility]ORATORY [address] [place] [address], Sodium [Moles/Vol] 135 mmol/L Low 136-[address] [facility] Comment on above: Result Comment: Note updated reference ranges. Performed By: #### C R BGA, CR GLU, CR ICA, CR COOX, CR LYTES, LACT #### [facility]OR[facility]ORY [address] [place] [address], Urea nitrogen [Mass/Vol] 52 mg/dL High 7-[address] [facility] Comment on above: Result Comment: Note updated reference ranges. Performed By: #### C R BGA, CR GLU, CR ICA, CR COOX, CR LYTES, LACT #### [facility] PATH[facility] LABORATORY [address] [place] [address], COMPLETE BLOOD COUNTon 05-15 Erythrocyte distribution width (RBC) [Ratio] 14.3 % Normal 11.5-14.5 [facility] Comment on above: Performed By: #### C BC #### [facility] PATH[facility] LABORATORY [address] [place] [address], Hematocrit (Bld) [Volume fraction] 23.8 % Low 36.0-46.[address] [facility] Comment on above: Performed By: #### C BC #### [facility] PATH[facility] LABORATORY [address] [place] [address], Hemoglobin (Bld) [Mass/Vol] 8.0 g/dL Low 12.0-15.0 [facility] Comment on above: Performed By: #### C BC #### [facility] PATH[facility] LABOR[facility]ORY [address] [place] [address], MCH (RBC) [Entitic mass] 31.0 pg Normal 26.0-34.[address] [facility] Comment on above: Performed By: #### C BC #### [facility] PATH[facility] LABOR[facility]ORY [address] [place] [address], MCHC (RBC) [Mass/Vol] 33.8 g/dL Normal 32.0-35.9 [facility] Comment on above: Performed By: #### C BC #### [facility] [address] [place] [address], MCV (RBC) [Entitic vol] 92 fL Normal 80-[address] [facility] Comment on above: Performed By: #### C BC #### [facility] LABORATORY [address] [place], Platelet mean volume (Bld) [Entitic vol] 7.7 fL Normal 7.5-11.[address] [facility] Comment on above: Performed By: #### C BC #### [facility] LABOR[facility]ORY [address] [place], Platelets (Bld) [#/Vol] 225 10*3/uL Normal 150-[address] [facility] Comment on above: Performed By: #### C BC #### [facility] [address] [place], [place], RBC (Bld) [#/Vol] 2.60 10*6/uL Low 4.00-5.[address] [facility] Comment on above: Performed By: #### C BC #### [facility] [address] [place], WBC (Bld) [#/Vol] 10.3 10*3/uL Normal 4.5-11.[address] [facility] [facility] Comment on above: Performed By: #### C BC #### [facility] PATH[facility] LABORATORY [address] [place] [address], Care Plan Noteon 05-15-2023 Casual Shoe Inspector Authentication Interface Message Text I was called [...] of metopolol. Ramy Whitfield, DO Normal [facility] GLUCOSE, FINGERSTICK-IN OFFI CEon 05-15-2023 Glucose [Mass/Vol] 162 mg/dL High 80-[address] [facility] Comment on above: Performed By: #### 8 2948 #### NURSING GLUCOSE PROGRAM [address] [place] [address], [id number] Glucose [Mass/Vol] 171 mg/dL High 80-116 [facility] Comment on above: Performed By: #### 8 2948 #### NURSING GLUCOSE PROGRAM [address] [place], [address] Glucose [Mass/Vol] 190 mg/dL High 80-116 [facility] Comment on above: Performed By: #### C R BGA, CR GLU, CR ICA, CR COOX, CR LYTES, LACT #### [facility] [address] [place] [address], Glucose [Mass/Vol] 149 mg/dL High 80-116 [facility] Comment on above: Performed By: #### C R BGA, CR GLU, CR ICA, CR COOX, CR LYTES, LACT #### [facility] [address] [place] [address], MAGNESIUMon 05-15-2023 Magnesium [Mass/Vol] 1.4 mg/dL Low 1.6-2.8 [facility] Comment on above: Performed By: #### C R BGA, CR GLU, CR ICA, CR COOX, CR LYTES, LACT #### [facility] [address] [place] [address], Progress Noteson 05-15-2023 Casual Shoe Inspector Authentication Interface Message Text ---- GENERAL INFORMATION --- TRAUMA FLOOR - STAFF NOTE Patient Name: Kate Hagen Admission Date: 05/13/2023 Patient seen and examined on 05/15/23 -- INTERVAL HISTORY/EVENTS Background: Kate Hagen is a 72 year [...] mL (kim catheter) BM: Last BM documented TECHNOLOGY SALES SPECIALIST PHYSICAL EXAM Vital Signs: Vital sign ranges [...] (PERSONALLY REVIEWED) No new imaging following surgery. ----- ASSESSMENT AND PLAN ------- (more content not included)... Normal [facility] ABO RH TYPEon 05-14-2023 ABO and Rh group Nom (Bld) Blood group O Rh(D) positive Normal [facility] Comment on above: Performed By: #### C R BGA, CR GLU, CR ICA, CR COOX, CR LYTES, LACT #### [facility] [address] [place] [address], [phone] AdmissionCareon 05-14-2023 Casual Shoe Inspector Authentication Interface Message Text AdmissionCare Guideline: Hip Fracture, Inpatient Based on the indications selected for the patient, the bed status of Admit to Inpatient was determined to be MET The following indications were selected as present at the time of evaluation of the patient: - Hip fractureOperative Status Criteria selected: Inpatient AdmissionCare documentation entered by: [facility], 27th edition, Copyright ??? 2022 [facility] [employer] [facility] All Rights Reserved. [id number]:12:37-05:00 Normal [facility] Anesthesia Postprocedure Stefani danielaationon 05-14-2023 Casual Shoe Inspector Authentication Interface Message Text Anesthesia Postoperative Assessment: [...] [facility] Anesthesia Preprocedure Eval uationon 05-14-2023 Casual Shoe Inspector Authentication Interface Message Text ASA: 4 Past [...] missing Endo (+) diabetes mellitus type 2 weight tester (+) post-menopausal (-) not Neuro/Psych (+) depression, [...] Neuro Abnormal sensation Plan Attestation: Normal [facility] Anesthesia Transfer Of [place] n 05-14-2023 Casual Shoe Inspector Authentication Interface Message Text Patient taken to [...] Closed displaced intertrochanteric fracture of right femur ([facility]) [S72.141A] Past Surgical History: There is no previous surgical history on file. Allergies: Bee venom, Extra strength grapefruit, Grapefruit extract, Lanolin, Naproxen, and Pineapple Basic Operating Room Facts: Surgeon(s): Colt Live DO Anesthesiologist: Meng Bustillo MD; Oma Sneed MD TWISTING FRAME CHANGER: Dale Whiteside APRN-TWISTING FRAME CHANGER Pen Tester: Ramon Paez MD REDUCTION, OPEN, FEMUR, INTRAMEDULLARY [...] was received. Ramon Paez MD Normal [facility] BASIC METABOLIC PANELon 05-03 Anion gap [Moles/Vol] 17 mmol/L Normal 10-[address] [facility] Comment on above: Performed By: #### C R BGA, CR GLU, CR ICA, CR COOX, CR LYTES, LACT #### [facility] [address] [place] [address], Calcium [Mass/Vol] 6.9 mg/dL Low 8.6-10.3 [facility] Comment on above: Result Comment: Note updated reference ranges. Performed By: #### C R BGA, CR GLU, CR ICA, CR COOX, CR LYTES, LACT #### [facility] [address] [place] [address], Chloride [Moles/Vol] 98 mmol/L Normal 98-[address] [facility] [facility] Comment on above: Result Comment: Note updated reference ranges. Performed By: #### C R BGA, CR GLU, CR ICA, CR COOX, CR LYTES, LACT #### [facility] [address] [place] [address], CO2 [Moles/Vol] 23 mmol/L Normal 21-31 [facility] Comment on above: Result Comment: Note updated reference ranges. Performed By: #### C R BGA, CR GLU, CR ICA, CR COOX, CR LYTES, LACT #### [facility] [address] [place] [address], Creatinine [Mass/Vol] 1.80 mg/dL High 0.60-1.[address] [facility] Comment on above: Result Comment: Note updated reference ranges. Performed By: #### C R BGA, CR GLU, CR ICA, CR COOX, CR LYTES, LACT #### [facility] [address], [place], ESTIMATED GFR (CKD-EPI) 29 mL/min/1.73sqm Low >=[address] [facility] Comment on above: Result Comment: 2020 [...] Inclusion of Race in Diagnosing Kidney Disease. [place] Journal of Kidney Diseases 202;79(2):268-88.e1. 2. N Engl J Med 1 Vol. 385 Issue 19 Pages [phone] Performed By: #### C R BGA, CR GLU, CR ICA, CR COOX, CR LYTES, LACT #### [facility] [address], [place], Glucose [Mass/Vol] 140 mg/dL High 74-[address] [facility] Comment on above: Performed By: #### C R BGA, CR GLU, CR ICA, CR COOX, CR LYTES, LACT #### [facility] [address], [place], Potassium [Moles/Vol] 3.5 mmol/L Normal 3.5-5.[address] [facility] Comment on above: Result Comment: Note updated reference ranges. Note updated reference ranges. Performed By: #### C R BGA, CR GLU, CR ICA, CR COOX, CR LYTES, LACT #### [facility] [address] [place] [address], Sodium [Moles/Vol] 134 mmol/L Low 136-[address] [facility] Comment on above: Result Comment: Note updated reference ranges. Performed By: #### C R BGA, CR GLU, CR ICA, CR COOX, CR LYTES, LACT #### [facility] [address] [place] [address], Urea nitrogen [Mass/Vol] 47 mg/dL High 7-[address] [facility] Comment on above: Result Comment: Note updated reference ranges. Performed By: #### C R BGA, CR GLU, CR ICA, CR COOX, CR LYTES, LACT #### [facility] [address] [place] [address], BLOOD GAS, ARTERIALon 2023 CR JAIRO -2.2 mmol/L Low -2.0-3.[address] [facility] Comment on above: Performed By: #### C R BGA, CR GLU, CR ICA, CR COOX, CR LYTES, LACT #### [facility] [address] [place] [address], CR PCO2 42.4 mm Hg Normal 35.0-45.[address] [facility] Comment on above: Performed By: #### C R BGA, CR GLU, CR ICA, CR COOX, CR LYTES, LACT #### [facility] [address] [place] [address], CR PHA 7.349 Low 7.350-7.[address] [facility] Comment on above: Performed By: #### C R BGA, CR GLU, CR ICA, CR COOX, CR LYTES, LACT #### [facility] [address] [place] [address], CR PO2 187 mm Hg High 80-[address] [facility] Comment on above: Performed By: #### C R BGA, CR GLU, CR ICA, CR COOX, CR LYTES, LACT #### [facility] [address] [place] [address], HCO3 (Bld) [Moles/Vol] 23 mmol/L Normal 21-[address] [facility] Comment on above: Performed By: #### C R BGA, CR GLU, CR ICA, CR COOX, CR LYTES, LACT #### [facility] [address] [place] [address], Oxygen saturation in Blood 99.0 % Normal 95.0-99.0 [facility] Comment on above: Performed By: #### C R BGA, CR GLU, CR ICA, CR COOX, CR LYTES, LACT #### [facility] [address], [place], Blood Attestationon 05-14-19 Casual Shoe Inspector Authentication Interface Message Text Blood Attestation: ATTESTATION OF INFORMED CONSENT FOR BLOOD: The transfusion of blood and/or blood components were discussed with the patient and/or legal electronics parts sales representative. The risks, benefits and alternatives were reviewed. Questions regarding blood transfusions were answered. The patient /or the patient's legal electronics parts sales representative agree with the plan for transfusion of blood and/or blood components. Normal [facility] Brief Operative Noteon 05-14 Casual Shoe Inspector Authentication Interface Message Text Brief Operative Note MAIN OR 02 Kate Hagen 72 year old female Surgical Contact Serial Number: [id number] Preoperative Diagnosis: Pre-op Diagnosis * Closed displaced intertrochanteric fracture of right femur, initial encounter ([facility]) [S72.141A] Postoperative Diagnosis: * Closed displaced intertrochanteric fracture of right femur, initial encounter ([facility]) [S72.141A] Procedures: Cephalomedullary ramon right femur Surgeon(s): Surgeon(s): Colt Live DO Staff: Nurse: Cindy Lovett RN Scrub: Carole Snyder Rodney Vulcanizing Press Operator Nurse: Cierra Marquez RN Automatic Beading Lathe Operator: Karena Worthy Vp Biology: Cathy Juárez MD; Gregorio Cho MD Anesthesia: General Anesthesiologist: Meng Bustillo MD; Oma Sneed MD TWISTING FRAME CHANGER: Dale Whiteside APRN-TWISTING FRAME CHANGER Pen Tester: Ramon Paez MD Specimen(s): * No specimens [...] Cho MD 05/14/2023 3:27 PM Normal [facility] CALCIUM, IONIZEDon CR ICA 1.00 mmol/L Low 1.15-1.33 [facility] Comment on above: Result Comment: This test was developed, and its performance characteristics determined by the Department of Pathology of [facility]. It has not been cleared or approved by the FDA. This test is used for clinical purposes only. Performed By: #### C R BGA, CR GLU, CR ICA, CR COOX, CR LYTES, LACT #### [facility] [address], [place], CO-OXIMETERon 05-14-2023 CARBOXYHEMOGLOBIN 1.0 % Normal 0.5-1.5 [facility] Comment on above: Performed By: #### C R BGA, CR GLU, CR ICA, CR COOX, CR LYTES, LACT #### [facility] [address], [place], CR HBMET 1.5 % Normal 0.0-1.[address] [facility] Comment on above: Performed By: #### C R BGA, CR GLU, CR ICA, CR COOX, CR LYTES, LACT #### [facility] [address] [place] [address], Hematocrit (Bld) [Volume fraction] 31.0 % Low 38.0-46.[address] [facility] Comment on above: Performed By: #### C R BGA, CR GLU, CR ICA, CR COOX, CR LYTES, LACT #### [facility] [address] [place] [address], Hemoglobin (Bld) [Mass/Vol] 10.0 g/dL Low 12.0-16.[address] [facility] Comment on above: Performed By: #### C R BGA, CR GLU, CR ICA, CR COOX, CR LYTES, LACT #### [facility] [address] [place] [address], OXYHEMOGLOBIN 96.5 % Normal 94.0-98.[address] [facility] Comment on above: Performed By: #### C R BGA, CR GLU, CR ICA, CR COOX, CR LYTES, LACT #### [facility] [address] [place] [address], COMPLETE BLOOD COUNTon 05-14 Erythrocyte distribution width (RBC) [Ratio] 14.1 % Normal 11.5-14.[address] [facility] Comment on above: Performed By: #### C BC #### [facility] [address] [place] [address], Hematocrit (Bld) [Volume fraction] 27.0 % Low 36.0-46.[address] [facility] Comment on above: Performed By: #### C BC #### [facility] [address] [place] [address], Hemoglobin (Bld) [Mass/Vol] 9.4 g/dL Low 12.0-15.[address] [facility] Comment on above: Performed By: #### C BC #### [facility] [address] [place] [address], MCH (RBC) [Entitic mass] 31.5 pg Normal 26.0-34.[address] Comment on above: Performed By: #### C BC #### [facility] [address] [place] [address], MCHC (RBC) [Mass/Vol] 34.8 g/dL Normal 32.0-35.[address] [facility] Comment on above: Performed By: #### C BC #### [facility] [address] [place] [address], MCV (RBC) [Entitic vol] 91 fL Normal 80-[address] [facility] Comment on above: Performed By: #### C BC #### [facility] [address] [place] [address], Platelet mean volume (Bld) [Entitic vol] 7.1 fL Low 7.5-11.[address] [facility] Comment on above: Performed By: #### C BC #### [facility] [address] [place] [address], Platelets (Bld) [#/Vol] 149 10*3/uL Low 150-[address] [facility] [facility] Comment on above: Performed By: #### C BC #### [facility] [address] [place] [address], RBC (Bld) [#/Vol] 2.98 10*6/uL Low 4.00-5.[address] [facility] Comment on above: Performed By: #### C BC #### [facility] [address] [place] [address], WBC (Bld) [#/Vol] 9.7 10*3/uL Normal 4.5-11.[address] [facility] Comment on above: Performed By: #### C BC #### [facility] [address] [place] [address], CT FACIAL BONES W/O CONTRAST on 05-14-2023 [...] Paranasal sinus disease. MACRO: None Normal [facility] CTA HEAD W/on 05-14-2023 CTA HEAD W/ [...] arteries, PICA/AICA branches, basilar artery, SCAs and instructor creeler are patent. No vessel cutoff, aneurysm or focal hemodynamically significant stenosis. IMPRESSION: 1. No acute intracranial abnormality. 2. Displaced left mandibular condyle fracture with dislocated TMJ joint. 3. No significant stenosis, dissection, or aneurysm in the intracranial circulation. MACRO: None Normal [facility] Care Plan Noteon 05-14-2023 Casual Shoe Inspector Authentication Interface Message Text Problem: Routine Care: [...] will be met Outcome: Progressing Normal [facility] Interface Message Text Clear for surgery Laura Hernández MD Resident Physician Trauma Surgery Pager: [phone] Normal [facility] Interface Message Text Trauma Surgery Benefits of contrast outweigh risks for CT Neck in setting of recent trauma. GFR 29 today. Cr at baseline 1.8. Baseline GFR 35 per care everywhere. On LR while NPO. Not on dialysis. Laura Hernández MD Resident Physician Trauma Surgery Pager: [phone] Normal [facility] Casual Shoe Inspector Authentication Interface Message Text Problem: Routine Care: [...] will be met Outcome: Progressing Normal [facility] Consultson 05-14-2023 Casual Shoe Inspector Authentication Interface Message Text -- Attestation signed by Meng Leos DMD, MD [...] the resident's note. 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 Patient states she sustained the trauma 1 week ago after suffering a GLF, went to an outside facility on 05/13/23 and was transferred to [facility]. Patient was taken to the OR today [...] Resource Strain: Medium Risk (01/29/2023) Received from [facility] Overall Financial Resource Strain (CARDIA) Difficulty of Paying Living Expenses: Somewhat hard Food Insecurity: No Food Insecurity (04/20/2023) Received from [facility] Hunger Screening Within the past 12 months we worried whether our food would run out before we got money to buy more.: Never True Within the past 12 months the food we bought just didn't last and we didn't have money to get more.: Never True Transportation Needs: No Transportation Needs (01/29/2023) Received from [facility] PRAPARE - Transportation Lack of Transportation (Medical): No Lack of Transportation (Non-Medical): No Physical Activity: Inactive (01/29/2023) Received from [facility] Exercise Vital Sign Days of Exercise per Week: 0 days Minutes of Exercise per Session: 0 min Stress: Stress Concern Present (01/29/2023) Received from [facility] [place] [employer] Occupational Health - Occupational Stress Questionnaire Feeling of Stress : To some extent Social Connections: Socially Isolated (01/29/2023) Received from [facility] Social Connection and Isolation Panel [NHANES] Frequency of Communication with Friends and Family: Once a week Frequency of Social Gatherings with Friends and Family: Three times a week Attends Judaism Services: Never Active Member of Clubs or Organizations: No Attends Club or Organization Meetings: Never Marital Status: Intimate Partner Violence: Not At Risk (01/29/2023) Received from [facility] Humiliation, Afraid, Rape, and [...] ON (more content not included)... Normal [facility] Casual Shoe Inspector Authentication Interface Message Text Wound Ostomy Continence [...] If/when up in chair, please use a [employer] chair cushion (#[phone]) to assist with pressure redistribution. Continue using foam wedges to alternate right/left every hour if/when up in chair. Remove enough of the ointment to assess skin prior to reapplying ointment. (S[employer]Care contains petrolatum and zinc oxide). Patient is at an increased risk for skin breakdown due to frequent moisture exposure. If/when a break in the skin occurs, please re-consult [facility] Nursing for updated treatment recommendations. Additional Interventions [...] bed to one underpad only re-consult with [facility] Nursing Team as needed SEBASTIAN Reyna RN, CWOCN Normal [facility] Casual Shoe Inspector Mail[employer] Groupation Interface Message Text -- Attestation signed by Colt Live DO at [...] to proceed with surgery. Colt Live DO -- Orthopaedic Surgery Consult H AND P Requesting Provider / Service: Trauma CC: Right hip pain HPI: 72 year old female with PMH of T2DM, neuropahty, MARGARITA, epilepsy, emphysema, CHF, afib, CKD stage 3b, depression, anxiety presents to [facility] c/o right hip pain after falling. She was transferred from [facility]. She admits to a ground level [...] Resource Strain: Medium Risk (01/29/2023) Received from [facility] Overall Financial Resource Strain (CARDIA) Difficulty of Paying Living Expenses: Somewhat hard Food Insecurity: No Food Insecurity (04/20/2023) Received from [facility] Hunger Screening Within the past 12 months we worried whether our food would run out before we got money to buy more.: Never True Within the past 12 months the food we bought just didn't last and we didn't have money to get more.: Never True Transportation Needs: No Transportation Needs (01/29/2023) Received from [facility] PRAPARE - Transportation Lack of Transportation (Medical): No Lack of Transportation (Non-Medical): No Physical Activity: Inactive (01/29/2023) Received from [facility] Exercise Vital Sign Days of Exercise per Week: 0 days Minutes of Exercise per Session: 0 min Stress: Stress Concern Present (01/29/2023) Received from [facility] [place] [employer] Health - Occupational Stress Questionnaire Feeling of Stress : To some extent Social Connections: Socially Isolated (01/29/2023) Received from [facility] Social Connection and Isolation Panel [NHANES] Frequency of Communication with Friends and Family: Once a week Frequency of Social Gatherings with Friends and Family: Three times a week Attends Judaism Services: Never Active Member of Clubs or Organizations: No Attends Club or Organization Meetings: Never Marital Status: Intimate Partner Violence: Not At Risk (01/29/2023) Received from [facility] Humiliation, Afraid, Rape, and [...] MD (more content not included)... Normal [facility] ELECTROLYTESon 05-14-2023 Chloride [Moles/Vol] 100 mmol/L Normal 98-107 [facility] Comment on above: Performed By: #### C R BGA, CR GLU, CR ICA, CR COOX, CR LYTES, LACT #### [facility] [address] [place] [address], Potassium [Moles/Vol] 3.2 mmol/L Low 3.5-5.[address] [facility] Comment on above: Performed By: #### C R BGA, CR GLU, CR ICA, CR COOX, CR LYTES, LACT #### [facility] [address] [place] [address], Sodium [Moles/Vol] 135 mmol/L Low 136-[address] [facility] Comment on above: Performed By: #### C R BGA, CR GLU, CR ICA, CR COOX, CR LYTES, LACT #### [facility] [address] [place] [address], GLUCOSE, FINGERSTICK-IN OFFI CEon 05-14-2023 Glucose [Mass/Vol] 184 mg/dL High 80-[address] [facility] Comment on above: Performed By: #### C R BGA, CR GLU, CR ICA, CR COOX, CR LYTES, LACT #### [facility] [address] [place] [address], Glucose [Mass/Vol] 166 mg/dL High 80-[address] [facility] Comment on above: Performed By: #### C R BGA, CR GLU, CR ICA, CR COOX, CR LYTES, LACT #### [facility] [address] [place] [address], Glucose [Mass/Vol] 120 mg/dL High 80-[address] [facility] Comment on above: Performed By: #### C R BGA, CR GLU, CR ICA, CR COOX, CR LYTES, LACT #### [facility] [address] [place] [address], Glucose [Mass/Vol] 143 mg/dL High 80-[address] [facility] Comment on above: Performed By: #### [id number] ####NURSING GLUCOSE [id number] [place], [address] GLUCOSE, WHOLE BLOODon 05-14 CR GLU 146 mg/dL High 70-[address] [facility] Comment on above: Performed By: #### C R BGA, CR GLU, CR ICA, CR COOX, CR LYTES, LACT #### S PATH[facility] LABORATORY [address], [place], LACTIC ACIDon 05-14-2023 CR LACT 0.8 mmol/L Normal 0.5-1.[address] [facility] Comment on above: Performed By: #### C R BGA, CR GLU, CR ICA, CR COOX, CR LYTES, LACT #### [facility] [address], [place], OP Noteon 05-14-2023 Casual Shoe Inspector Authentication Interface Message Text Kate Hagen CSN: [id number] : 1950 Date of surgery: 05/14/23 Preop Dx: Closed, neurovascularly intact right intertrochanteric femur fracture Postop Dx: Same Procedure: Intramedullary ramon placement (CPT 23998) Use and interpretation of operating fluoroscopy less than 1 hour (CPT 73322) Surgeon: Roberto Resident/Fellow: Franck Cho Anesthesia: GETA Findings: Consistent with preoperative diagonsis Tourniquet: Not used EBL: 50 ccs Specimens: * No specimens in log * Complications: None Implants: Implant Name Type Inv. Item Serial No. Rfid Systems Architect Lot No. LRB No. Used Action GAMMA LONG NAIL RIGHT 10MM X 360MM 130DEG STERILE Nail Rods [employer] Pins [place] [id number] Right 1 Implanted SCR BN 5MM 60MM T2 ALPHA LCK [id number] - [id number] Screw SCR BN 5MM 60MM T2 ALPHA LCK EA1 [id number] Deep [id number] Right 1 Implanted SCR BN 5MM 45MM T2 ALPHA LCK EA1 [id number] - [id number] Screw SCR BN 5MM 45MM T2 ALPHA LCK EA1 [id number] [place] [id number] Right 1 Implanted SCR BN 10.5MM 85MM GMA LG STRL EA1 [id number] - [id number] Screw SCR BN 10.5MM 85MM GMA LG STRL EA1 [id number] [place] [id number] Right 1 Implanted Indications: This is a 72 year old female who sustained the above injury after a fall. She was evaluated by the orthopaedic surgery resident telephone claims representative and found to have a closed and [...] were administered. She was placed on a [place] table in the supine position. A timeout [...] on behalf of Dr. Live Normal [facility] PARTIAL THROMBOPLASTIN TIMEo n 05-14-2023 aPTT Coag (Bld) [Time] 31 s Normal 25-37 [facility] Comment on above: Performed By: #### [id number] #### NURSING GLUCOSE PROGRAM [address] [place] [address], [id number] PROTHROMBIN TIME AND INRon 0 05-14-2023 INR Coag (PPP) [Relative time] 1.30 {INR} High 0.90-1.10 [facility] Comment on above: Performed By: #### 8 [id number] #### NURSING GLUCOSE PROGRAM [address] [place], [address] PT Coag (PPP) [Time] 14.6 s High 9.7-12.9 [facility] Comment on above: Performed By: #### 8 [id number] #### NURSING GLUCOSE PROGRAM [address] [place], [address] Procedureson 05-14-2023 Casual Shoe Inspector Authentication Interface Message Text Transthoracic Echocardiographic Report Name: XIAO Perez Physician: : [id number] Referring PETRONA DENIS MD Physician: Age: 72 [employer] Farming Coordinator: Thalia Conti RDCS Exam Date: 05/14/2023 Fellow: [...] Doctor's order(s) verified. Patient's preferred language is Burmese . Verbal consent for left heart echo [...] details. Authenticated by: Invalid Interpretation Code [facility] Progress Noteson 05-14-2023 Casual Shoe Inspector Authentication Interface Message Text Home medications reviewed [...] PRN - 3L home oxygen Normal [facility] Casual Shoe Inspector Mail[employer] Groupation Interface Message Text ---- GENERAL INFORMATION --- TRAUMA FLOOR - STAFF NOTE Patient Name: Kate Hagen Admission Date: 05/13/2023 Patient seen and examined on 05/14/23 -- INTERVAL HISTORY/EVENTS Background: Kate Hagen is a 72 year [...] catheter from [facility]SH) BM: Last BM documented TECHNOLOGY SALES SPECIALIST PHYSICAL EXAM Vital Signs: Vital sign ranges [...] low CVP, a high cardiac output state. ----- ASSESSMENT AND PLAN -------- Diagnoses: Mechanical fall from standing R displaced IT fracture Left mandibular fracture with dislocated L TMJ joint Acute pain due to trauma Incidental Findings: None on imaging obtained at [facility] ([place], 05/14/23) Plan: Neurological: Acute pain due to trauma. 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 Normal [facility] Casual Shoe Inspector Authentication Interface Message Text Trauma Surgery Updated [...] Hernández MD Resident Physician Trauma Surgery Pager: [phone] Normal [facility] TYPE AND SCREENon 05-14-2023 ABO and Rh group Nom (Bld) Blood group O Rh(D) positive Normal [facility] Comment on above: Performed By: #### C R BGA, CR GLU, CR ICA, CR COOX, CR LYTES, LACT #### [facility] [address] [place] [address], ABO and Rh group Nom (Bld) No Previous Results Normal [facility] Comment on above: Performed By: #### C R BGA, CR GLU, CR ICA, CR COOX, CR LYTES, LACT #### [facility] [address] [place] [address], ABSC INT Negative Normal [facility] Comment on above: Performed By: #### C R BGA, CR GLU, CR ICA, CR COOX, CR LYTES, LACT #### [facility] [address] [place], [place], XR CHEST AP OR PA 1 [...] cardiopulmonary abnormality identified. MACRO: None Normal [facility] XR FEMUR RIGHT MINIMUM 2 VIE WSon 05-14-2023 XR FEMUR RIGHT MINIMUM 2 VIEWS EXAMINATION: XR FEMUR RIGHT MINIMUM 2 VIEWSPRO/RT 05/14/2023 03:52 AM CLINICAL HISTORY: trauma ASSOCIATED DIAGNOSIS: ORDERING PROVIDER: LAURAARMIN HERNÁNDEZ TECHNOLOGISTS NOTE: COMPARISON: None IMPRESSION: Intertrochanteric femur fracture with angulation. No dislocation. Right femur MACRO: None Normal [facility] XR HIP RIGHT W/ PELVIS MIN [...] joint. Right hip MACRO: None Normal [facility] H AND Guille 05-13-2023 Casual Shoe Inspector Authentication Interface Message Text -- Attestation signed by Alejandro Arana MD at [...] and Emergency General Surgery Department of Surgery [facility] -- [facility] Department of Surgery Division of Trauma Surgery, Acute Care Surgery, Critical Care, and [place] TRAUMA SURGERY HISTORY AND PHYSICAL Kate Hagen [id number] BASIC INJURY INFORMATION: Level of activation: Trauma transfer from OSH direct admit Mode of transport: Ambulance: transfer from [facility] Mechanism of injury: Fall from ground level [...] and care Living status: Home Primary language: Burmese Functional status: Partly dependent Impairments: Impaired mobility [...] ordered (more content not included)... Normal [facility] CT BRAIN WO CONTon CT BRAIN [...] on 05/07/2023 5:32 PM Normal [facility] [place] 04-30-2023 Screens [id number] Normal [facility] Heart TransthoracicOrdere d By: Colin Levy on 04-30-2023 Aortic Valve Area by Continuity of Peak Velocity 1.21 [facility] Work Phone: [phone] Aortic Valve Area by Continuity of VTI 1.29 [facility] Work Phone: [phone] AV mn grad 15.0 [facility] Work Phone: [phone] AV pk grad 28.9 [facility] Work Phone: [phone] AV pk amrit 2.69 [facility] Work Phone: [phone] LV A4C EF 43.9 [facility] Work Phone: [phone] LVIDd 3.90 [facility] Work Phone: [phone] LVOT diam 2.10 [facility] Work Phone: [phone] MV avg E/e' ratio 18.50 [facility] Work Phone: [phone] MV E/A ratio 0.76 [facility] Work Phone: [phone] RVSP 34.6 [facility] Work Phone: [facility] Work Phone: [facility] [address], [address], [place] [address] TRANSTHORACIC ECHOCARDIOGRAM REPORT Patient Name: KATE HAGEN Reading Physician: [id number] Colin Levy MD, [facility] Study Date: 04/29/2023 Ordering Provider: [id number] ANNIKA KABA MRN/PID: [id number] Fellow: Nurse: Date of /Age: 8 1950 / 72 years [employer] Farm[employer] Coordinator: ROBER Gender: F Additional Staff: Height: 152.40 cm Admit Date: Weight: 72.58 kg Admission Status: BSA: 1.70 m2 Department Location: [facility] Blood Pressure: 122 /64 mmHg Study Type: TRANSTHORACIC ECHO (TTE) COMPLETE Diagnosis/ICD: Nonrheumatic aortic (valve) stenosis-I35.0 Indication: Paroxysmal Atrial Fibrillation, COPD-on O2 at 2-3l, Diabetes, HTN, Hyperlipidemia, Tobacco Abuse, CKD-Stage III, Pulmonary HTN CPT Codes: Echo Complete w Full Doppler-40854 Study Detail: The following Echo studies were [...] included)... Colin Henderson M D - 04/30/[address], [place] [address] TRANSTHORACIC ECHOCARDIOGRAM REPORT Patient Name: KATE [place] Physician: [id number] Colin Levy MD, [facility] Study Date: 04/29/2023 Ordering Provider: [id number] ANNIKA KABA MRN/PID: [id number] Fellow: Nurse: Date of /Age: 8 1950 / 72 years [employer] Farm[employer] Coordinator: ROBER Gender: F Additional Staff: Height: 152.40 cm Admit Date: Weight: 72.58 kg Admission Status: BSA: 1.70 m2 Department Location: [facility] Blood Pressure: 122 /64 mmHg Study Type: TRANSTHORACIC ECHO (TTE) COMPLETE Diagnosis/ICD: Nonrheumatic aortic (valve) stenosis-I35.0 Indication: Paroxysmal Atrial Fibrillation, COPD-on O2 at 2-3l, Diabetes, HTN, Hyperlipidemia, Tobacco Abuse, CKD-Stage III, Pulmonary HTN CPT Codes: Echo Complete w Full Doppler-21710 Study Detail: The following Echo studies were [...] 0.9 m/s (0.6-0.9m/s) PV Max P.3 mmHg [id number] Colin Levy MD, FACC Electronically signed on 04/30/2023 at 3:47:08 PM Final (more content not included)... [facility] Work Phone: Ambulatory Visit Summaryon 1 [...] prescribing physician if questions or concerns acetaminophen-hydrocodone (acetaminophen-hydrocodone 325 mg-5 mg oral tablet) albuterol (Ventolin [...] With: Lani Wasserman CNP Where: [facility] Normal [facility] Ambulatory Visit Summary KATE HAGEN :1950 Visit Date:04/28/2023 Ambulatory Visit Instructions Your Diagnosis Recurrent UTI Pneumaturia Adrenal mass Urinary retention Renal cyst Urgency of urination Your Care Team Attending Physician - Alec XIE, Jacqui Nieves Primary Care Physician - JUSTICE XIE, BARRY Pearson Referring Physician - Jacqui Michael MD This Is Your Medications List estradiol topical (Estrace 0.1 mg/g Cream) Contact prescribing physician if questions or concerns acetaminophen-hydrocodone (acetaminophen-hydrocodone 325 mg-5 mg oral tablet) albuterol (Ventolin [...] With: Lani Wasserman CNP Where: [facility] Normal [facility] Patient Educationon 04-28-20 Patient Education Obstetrics [...] these instructions at home: Medicines ? Take [id number] and prescription medicines only as told by [...] provider. Document Revised: 11/29/2020 Document Reviewed: 11/29/2020 [employer] Patient Education ? 2022 [employer]. [place]line [facility] Urology Office/Clinic Noteon 04-28-2023 Urology [...] due to (more content not included)... Normal [facility] Comment on above: Result Comment: Elec tronically Signed By: Jacqui Michael MD\.br\Date and Time Signed: 04/28/23 10:55 EST\.br\Electronically Co-Signed By: Brisa Russell\.br\Date and Time Co-Signed: 04/28/23 10:25 EST Physician Referralon 023 Physician Referral [id number] [facility] Physician Referralon 023 Physician Referral [id number] [facility] Office Visit (Cardiology)on 12-28-2022 Follow-up visit Diagnoses/Problems [...] depressive disorder PHQ2 Screen Positive; Status:Complete; Done: [id number] Overweight with body mass index (BMI) of 29 to 29.9 in adult Healthy Weight Tips; Status:Complete; Done: [id number] SocHx: Current smoker Tobacco Use Screening; Status:Complete; Done: [id number] You need to stop smoking. Though it is not easy, more than half of all adult smokers have quit. We encourage you to write down all the reasons you should quit smoking and set a quit date for yourself. Ask us how we can help. You may also call 0-248-EULRNOW for free resources and assistance.; Status:Complete; Done: [id number] Tobacco Use Screening; Status:Complete; Done: 40Izm4360 Patient Instructions Please bring all medicines, vitamins, [...] to continue without modifications. 2. Records from [facility] 3. Return for follow-up; in the interim, contact the office if new symptoms arise. Dr. Arriaga 4 months [facility] f/u: 'doing ok' KATE HAGEN is being seen for follow-up of a hospitalization for dyspnea. Patient presents to the office in a wheelchair, utilizing oxygen and is accompanied by family member. This is initial in clinic follow-up at [facility]. She has previously been managed by [facility] since approximately 2021. Both she and [...] are requesting to establish cardiology follow-up with [facility]. October 2022 hospitalized at [facility] due to shortness of breath, seen in consultation by Dr. Jean. Echocardiogram at that time showed moderate aortic stenosis peak 46, mean 26. She was diuresed and some documentation that she was to follow-up with nephrology (not completed to date). [facility] but is [...] regular basis (more content not included)... Normal [facility] Tobacco Screening.on 023 Adult depression screening assessment Yes [facility] [place] [address] DO Work Phone: Adult depression screening assessment Moderate (10-14) [facility] 250 DO Work Phone: [phone] Fall risk assessment a) No falls within the last year [facility] [place] [address] DO Work Phone: Tobacco use status CP a) Yes [facility] 250 DO Work Phone: Tobacco Screening. Yes [facility] 250 DO Work Phone: Tobacco Screening. 1-Several days [facility] Marinelli DO Work Phone: Tobacco Screening. 3-Nearly every day [facility] [place] [address] DO Work Phone: Tobacco Screening. 0-Not at all [facility] 250 DO Work Phone: [phone] Tobacco Screening. Somewhat Difficult [facility] Marinelli DO Work Phone: [phone] Automated basophil %Ordered By: Gina Poole on 11-21-2022 Basophils/100 WBC (Bld) 0.3 % Normal . [facility] Comment on above: Performed By: #### G LULS #### Point of Care testing , Automated basophil countOrde red By: Gina Poole on 11-21-2022 Basophils (Bld) [#/Vol] 0.0 10*3/uL Normal 0.0-0.2 [facility] Comment on above: Result Comment: PERF ORMED BY: [facility] [address] [place] [address] PATHOLOGIST MANAGER INVESTIGATIONS KOBE VENCES M.D. Performed By: #### G LULS #### Point of Care testing , Automated blood monocyte cou ntOrdered By: Gina Poole on 11-21-2022 Monocytes (Bld) [#/Vol] 0.4 10*3/uL Normal 0.0-0.8 [facility] Comment on above: Performed By: #### G LULS #### Point of Care testing , Automated eosinophil %Ordere d By: Gina Poole on 11-21-2022 Eosinophils/100 WBC (Bld) 2.7 % Normal . [facility] Comment on above: Performed By: #### G LULS #### Point of Care testing , Automated eosinophil countOr dered By: Gina Poole on 11-21-2022 Eosinophils (Bld) [#/Vol] 0.2 10*3/uL Normal 0.0-0.45 [facility] Comment on above: Performed By: #### G LULS #### Point of Care testing , Automated monocyte %Ordered By: Gina Poole on 11-21-2022 Monocytes/100 WBC (Bld) 7.3 % Normal . [facility] Comment on above: Performed By: #### G LULS #### Point of Care testing , Automated neutrophil %Ordere d By: Gina Poole on 11-21-2022 Neutrophils/100 WBC (Bld) 70.8 % Normal . [facility] Comment on above: Performed By: #### G LULS #### Point of Care testing , Basic Metabolic Panelon 11-01 Anion gap [Moles/Vol] Not performed Normal 6.0-15.0 [facility] Comment on above: Performed By: #### G LULS #### Point of Care testing , Creatinine Clr Calc Pharmacy 29.80 Normal [facility] Comment on above: Result Comment: PERF ORMED BY: [facility] [address] [place] [address] PATHOLOGIST MANAGER INVESTIGATIONS KOBE VENCES M.D. Performed By: #### G LULS #### Point of Care testing , GFR/1.73 sq M.predicted MDRD (S/P/Bld) [Vol rate/Area] 35.431 mL/min/{1.73_m2} Normal [facility] Comment on above: Performed By: #### G LULS #### Point of Care testing , Calcium [Mass/volume] in Ser um or PlasmaOrdered By: Gina Poole on 11-21-2022 Calcium [Mass/Vol] 9.4 mg/dL Normal 8.6-10.3 [facility] Comment on above: Performed By: #### G TASHA #### Point of Care testing , Capillary blood glucose hakeem urement by glucometer (mass/volume)Ordered By: Gina Poole on 11-21-2022 Glucose [Mass/Vol] 149 mg/dL Normal [facility] Comment on above: Random Glucose Refer ence Range is dependent on time and content of last meal. Glucose of more than 200 mg/dL in a nonstressed, ambulatory subject supports the diagnosis of Diabetes Mellitus. Result Comment: [place] [facility] Glucose Reference Range is dependent on time and content of last meal. Glucose of more than 200 mg/dL in a nonstressed, ambulatory subject supports the diagnosis of Diabetes Mellitus. PERFORMED BY: [place] [address] PATHOLOGIST MANAGER INVESTIGATIONS KOBE VENCES M.D. Performed By: #### C AION #### [facility] , #### HEPATIC, HS TROP, BMP, MG, PTT, CK, BNP, PT, CBC #### [address] Carbon dioxide, total [Moles /volume] in Serum or PlasmaOrdered By: Gnia Poole on 11-21-2022 CO2 [Moles/Vol] mmol/L High 21.0-31.0 [facility] Comment on above: Performed By: #### G TASHA #### Point of Care testing , Chloride [Moles/volume] in S arti or PlasmaOrdered By: Gina Poole on 11-21-2022 Chloride [Moles/Vol] 92 mmol/L Low 98-107 [facility] Comment on above: Performed By: #### G TASHA #### Point of Care testing , Complete Blood Count Auto Di ffon 11-21-2022 Mean Corpuscular HGB Conc 32.3 g/dL Normal 32.0-35.0 [facility] Comment on above: Performed By: #### G LULS #### Point of Care testing , NRBC% 0.1 /100{WBC} Normal 0-0.5 [facility] Comment on above: Performed By: #### G LULS #### Point of Care testing , Creatinine [Mass/volume] in Serum or PlasmaOrdered By: Gina Poole on 11-21-2022 Creatinine [Mass/Vol] 1.54 mg/dL High 0.60-1.20 [facility] Comment on above: Performed By: #### G LULS #### Point of Care testing , Erythrocyte distribution wid th [Ratio] by Automated countOrdered By: Gina Poole on 11-21-2022 Erythrocyte distribution width (RBC) [Ratio] 15.2 % Normal 11.9-15.3 [facility] Comment on above: Performed By: #### G LULS #### Point of Care testing , Erythrocytes [#/volume] in B lood by Automated countOrdered By: Gina Poole on 11-21-2022 RBC (Bld) [#/Vol] 2.75 10*6/uL Low 3.60-5.00 [facility] Comment on above: Performed By: #### G LULS #### Point of Care testing , Glucose Poct Glucometerson 0 11-21-2022 Glucose [Mass/Vol] 118 mg/dL Normal [facility] Comment on above: Result Comment: [place] Glucose Reference Range is dependent on time and content of last meal. Glucose of more than 200 mg/dL in a nonstressed, ambulatory subject supports the diagnosis of Diabetes Mellitus. PERFORMED BY: [place] [address] PATHOLOGIST MANAGER INVESTIGATIONS KOBE VENCES M.D. Performed By: #### C AION #### [facility] , #### HEPATIC, HS TROP, BMP, MG, PTT, CK, BNP, PT, CBC #### [address] Glucose [Mass/volume] in Ser um or PlasmaOrdered By: Gina Poole on 11-21-2022 Glucose [Mass/Vol] 95 mg/dL Normal 70-100 [facility] Comment on above: ADA recommended refe rence rangeRandom Glucose Reference Range is dependent on time and content of last meal. Glucose of more than 200 mg/dL in a nonstressed, ambulatory subject supports the diagnosis of Diabetes Mellitus. Result Comment: [place] [facility] Glucose Reference Range is dependent on time and content of last meal. Glucose of more than 200 mg/dL in a nonstressed, ambulatory subject supports the diagnosis of Diabetes Mellitus. ADA recommended reference range Performed By: #### G LULS #### Point of Care testing , Hematocrit [Volume Fraction] of Blood by Automated countOrdered By: Gina Poole on 11-21-2022 Hematocrit (Bld) [Volume fraction] 24.7 % Low 34.0-46.4 [facility] Comment on above: Performed By: #### G LULS #### Point of Care testing , Hemoglobin [Mass/volume] in BloodOrdered By: Gina Poole on 11-21-2022 Hemoglobin (Bld) [Mass/Vol] 8.0 g/dL Low 11.8-15.4 [facility] Comment on above: Performed By: #### G LULS #### Point of Care testing , Leukocytes [#/volume] correc loan for nucleated erythrocytes in Blood by Automated counOrdered By: Gina Poole on 11-21-2022 WBC corrected for nucl RBC Auto (Bld) [#/Vol] 5.7 10*3/uL 3.8-11.6 [facility] Leukocytes [#/volume] in Blo od by Automated countOrdered By: Gina Poole on 11-21-2022 WBC (Bld) [#/Vol] 5.7 10*3/uL Normal 3.8-11.6 [facility] Comment on above: Performed By: #### G LULS #### Point of Care testing , Lymphocytes [#/volume] in Bl ood by Automated countOrdered By: Gina Poole on 11-21-2022 Lymphocytes (Bld) [#/Vol] 1.1 10*3/uL Normal 1.00-4.8 [facility] Comment on above: Performed By: #### G LULS #### Point of Care testing , Lymphocytes/100 leukocytes i n Blood by Automated countOrdered By: Gina Poole on 11-21-2022 Lymphocytes/100 WBC (Bld) 18.9 % Normal . [facility] Comment on above: Performed By: #### G LULS #### Point of Care testing , MCH [Entitic mass] by [employer] loan countOrdered By: Gina Poole on 11-21-2022 MCH (RBC) [Entitic mass] 29.0 pg Normal 24.7-34.3 [facility] Comment on above: Performed By: #### G LULS #### Point of Care testing , MCHC Auto (RBC) [Mass/Vol]Or dered By: Gina Poole on 11-21-2022 MCHC (RBC) [Mass/Vol] 32.3 g/dL 32.0-35.0 [facility] MCV [Entitic volume] by Auto mated countOrdered By: Gina Poole on 11-21-2022 MCV (RBC) [Entitic vol] 89.8 fL Normal 80-100 [facility] Comment on above: Performed By: #### G LUBALDEMAR #### Point of Care testing , Neutrophils [#/volume] in Bl ood by Automated countOrdered By: Gina Poole on 11-21-2022 Neutrophils (Bld) [#/Vol] 4.1 10*3/uL Normal 1.8-7.7 [facility] Comment on above: Performed By: #### G LULS #### Point of Care testing , No Panel InformationOrdered By: Gina Poole on 11-21-2022 Estimated GFR (CKD-EPI) 35.431 mL/Min [facility] Creatinine Clearance (Chem 29.80 [facility] Nucleated erythrocytes [Pres ence] in Blood by Automated countOrdered By: Gina Poole on 11-21-2022 Nucleated RBC Auto Ql (Bld) 0.1 /100{WBC} 0-0.5 [facility] Platelet mean volume [Entiti c volume] in Blood by Automated countOrdered By: Gina Poole on 11-21-2022 Platelet mean volume (Bld) [Entitic vol] 7.8 fL Normal 6.3-10.7 [facility] Comment on above: Performed By: #### G LUBALDEMAR #### Point of Care testing , Platelets [#/volume] in Bloo d by Automated countOrdered By: Gina Poole on 11-21-2022 Platelets (Bld) [#/Vol] 132 10*3/uL Low 150-450 [facility] Comment on above: Performed By: #### G LULS #### Point of Care testing , Potassium [Moles/volume] in Serum or PlasmaOrdered By: Gina Poole on 11-21-2022 Potassium [Moles/Vol] 4.6 mmol/L Normal 3.5-5.1 [facility] Comment on above: Performed By: #### G LULS #### Point of Care testing , Serum or plasma anion gap de terminationOrdered By: Gina Poole on 11-21-2022 Anion gap [Moles/Vol] TNP [facility] Comment on above: Test not performed Sodium [Moles/volume] in Ser um or PlasmaOrdered By: Gina Poole on 11-21-2022 Sodium [Moles/Vol] 141 mmol/L Normal 136-145 [facility] Comment on above: Performed By: #### G TASHA #### Point of Care testing , Urea nitrogen [Mass/volume] in Serum or PlasmaOrdered By: Gina Poole on 11-21-2022 Urea nitrogen [Mass/Vol] 35 mg/dL High 7-25 [facility] Comment on above: Performed By: #### G LULS #### Point of Care testing , XR chest 2V*on 11-21-2022 XR chest 2V* [facility] [place] [address] XRay Report Signed Patient: Kate Hagen MR#: [id number] 52 : 1950 Acct:[id number] Age/Sex: 71 / F ADM Date: 11/18/22 Loc: Room: [address] [place] [address] Type: ADM IN Attending Dr: Gina Poole [...] Candace Godfrey M.D.11/21/2022 9:26 AM Dictation Location: [place] [address] Transcribed By: [facility] 11/21/22925 Dictated By: Candace Godfrey II, MD 11/21/22923 Signed By: 11/21/22925 Normal [facility] Basic Metabolic Panelon 11-01 Anion gap [Moles/Vol] 7.5 mmol/L Normal 6.0-15.0 [facility] Comment on above: Performed By: #### G LULS #### Point of Care testing , Calcium [Mass/Vol] 8.7 mg/dL Normal 8.6-10.3 [facility] Comment on above: Performed By: #### G LULS #### Point of Care testing , Chloride [Moles/Vol] 99 mmol/L Normal 98-107 [facility] Comment on above: Performed By: #### G LULS #### Point of Care testing , CO2 [Moles/Vol] 42.2 mmol/L High 21.0-31.0 [facility] Comment on above: Performed By: #### G LULS #### Point of Care testing , Creatinine [Mass/Vol] 1.73 mg/dL High 0.60-1.20 [facility] Comment on above: Performed By: #### G LULS #### Point of Care testing , Creatinine Clr Calc Pharmacy 26.49 Normal [facility] Comment on above: Result Comment: PERF ORMED BY: [facility] [place] [address] PATHOLOGIST MANAGER INVESTIGATIONS KOBE VENCES M.D. Performed By: #### G LULS #### Point of Care testing , GFR/1.73 sq M.predicted MDRD (S/P/Bld) [Vol rate/Area] 30.815 mL/min/{1.73_m2} Normal [facility] Comment on above: Performed By: #### G LULS #### Point of Care testing , Glucose [Mass/Vol] 104 mg/dL High 70-100 [facility] Comment on above: Result Comment: [facility] Glucose Reference Range is dependent on time and content of last meal. Glucose of more than 200 mg/dL in a nonstressed, ambulatory subject supports the diagnosis of Diabetes Mellitus. ADA recommended reference range Performed By: #### G LULS #### Point of Care testing , Potassium [Moles/Vol] 4.7 mmol/L Normal 3.5-5.1 [facility] Comment on above: Performed By: #### G LULS #### Point of Care testing , Sodium [Moles/Vol] 144 mmol/L Normal 136-145 [facility] Comment on above: Performed By: #### G LULS #### Point of Care testing , Urea nitrogen [Mass/Vol] 33 mg/dL High 7-25 [facility] Comment on above: Performed By: #### G LULS #### Point of Care testing , Complete Blood Count Auto Di ffon 11-20-2022 Basophils (Bld) [#/Vol] 0.0 10*3/uL Normal 0.0-0.2 [facility] Comment on above: Result Comment: PERF ORMED BY: [place] [address] [place] [address] PATHOLOGIST MANAGER INVESTIGATIONS KOBE VENCES M.D. Performed By: #### G LULS #### Point of Care testing , Basophils/100 WBC (Bld) 0.4 % Normal . [facility] Comment on above: Performed By: #### G LULS #### Point of Care testing , Eosinophils (Bld) [#/Vol] 0.1 10*3/uL Normal 0.0-0.45 [facility] Comment on above: Performed By: #### G LULS #### Point of Care testing , Eosinophils/100 WBC (Bld) 2.1 % Normal . [facility] Comment on above: Performed By: #### G LULS #### Point of Care testing , Erythrocyte distribution width (RBC) [Ratio] 15.6 % High 11.9-15.3 [facility] Comment on above: Performed By: #### G LULS #### Point of Care testing , Hematocrit (Bld) [Volume fraction] 24.9 % Low 34.0-46.4 [facility] Comment on above: Performed By: #### G LULS #### Point of Care testing , Hemoglobin (Bld) [Mass/Vol] 8.0 g/dL Low 11.8-15.4 [facility] Comment on above: Performed By: #### G LULS #### Point of Care testing , Lymphocytes (Bld) [#/Vol] 1.2 10*3/uL Normal 1.00-4.8 [facility] Comment on above: Performed By: #### G LULS #### Point of Care testing , Lymphocytes/100 WBC (Bld) 22.4 % Normal . [facility] Comment on above: Performed By: #### G LULS #### Point of Care testing , MCH (RBC) [Entitic mass] 28.9 pg Normal 24.7-34.3 [facility] Comment on above: Performed By: #### G LULS #### Point of Care testing , MCV (RBC) [Entitic vol] 90.0 fL Normal 80-100 [facility] Comment on above: Performed By: #### G LULS #### Point of Care testing , Mean Corpuscular HGB Conc 32.1 g/dL Normal 32.0-35.0 [facility] Comment on above: Performed By: #### G LULS #### Point of Care testing , Monocytes (Bld) [#/Vol] 0.4 10*3/uL Normal 0.0-0.8 [facility] Comment on above: Performed By: #### G LULS #### Point of Care testing , Monocytes/100 WBC (Bld) 6.7 % Normal . [facility] Comment on above: Performed By: #### G LULS #### Point of Care testing , Neutrophils (Bld) [#/Vol] 3.7 10*3/uL Normal 1.8-7.7 [facility] Comment on above: Performed By: #### G LULS #### Point of Care testing , Neutrophils/100 WBC (Bld) 68.4 % Normal . [facility] Comment on above: Performed By: #### G LULS #### Point of Care testing , NRBC% 0.1 /100{WBC} Normal 0-0.5 [facility] Comment on above: Performed By: #### G LULS #### Point of Care testing , Platelet mean volume (Bld) [Entitic vol] 7.9 fL Normal 6.3-10.7 [facility] Comment on above: Performed By: #### G LULS #### Point of Care testing , Platelets (Bld) [#/Vol] 133 10*3/uL Low 150-450 [facility] Comment on above: Performed By: #### G LULS #### Point of Care testing , RBC (Bld) [#/Vol] 2.77 10*6/uL Low 3.60-5.00 [facility] Comment on above: Performed By: #### G LULS #### Point of Care testing , WBC (Bld) [#/Vol] 5.4 10*3/uL Normal 3.8-11.6 [facility] Comment on above: Performed By: #### G LULS #### Point of Care testing , Glucose Poct Glucometerson 0 11-20-2022 Glucose [Mass/Vol] 135 mg/dL Normal [facility] Comment on above: Result Comment: [place] om Glucose Reference Range is dependent on time and content of last meal. Glucose of more than 200 mg/dL in a nonstressed, ambulatory subject supports the diagnosis of Diabetes Mellitus. PERFORMED BY: [place] [phone] PATHOLOGIST MANAGER INVESTIGATIONS KOBE VENCES M.D. Performed By: #### C AION #### [facility] , #### HEPATIC, HS TROP, BMP, MG, PTT, CK, BNP, PT, CBC #### [facility] [address] [place] [address] [place] Glucose [Mass/Vol] 123 mg/dL Normal [facility] Comment on above: Result Comment: [place] om Glucose Reference Range is dependent on time and content of last meal. Glucose of more than 200 mg/dL in a nonstressed, ambulatory subject supports the diagnosis of Diabetes Mellitus. PERFORMED BY: [place] [phone] PATHOLOGIST MANAGER INVESTIGATIONS KOBE VENCES M.D. Performed By: #### C AION #### [facility] , #### HEPATIC, HS TROP, BMP, MG, PTT, CK, BNP, PT, CBC #### [facility] [address] [place] [address] [place] Glucose [Mass/Vol] 116 mg/dL Normal [facility] Comment on above: Result Comment: [place] om Glucose Reference Range is dependent on time and content of last meal. Glucose of more than 200 mg/dL in a nonstressed, ambulatory subject supports the diagnosis of Diabetes Mellitus. PERFORMED BY: [place] [phone] PATHOLOGIST MANAGER INVESTIGATIONS KOBE VENCES M.D. Performed By: #### G LULS #### Point of Care testing , Glucose [Mass/Vol] 130 mg/dL Normal [facility] Comment on above: Result Comment: [place] om Glucose Reference Range is dependent on time and content of last meal. Glucose of more than 200 mg/dL in a nonstressed, ambulatory subject supports the diagnosis of Diabetes Mellitus. PERFORMED BY: [place] [address] PATHOLOGIST MANAGER INVESTIGATIONS KOBE VENCES M.D. Performed By: #### C AION #### [facility] , #### HEPATIC, HS TROP, BMP, MG, PTT, CK, BNP, PT, CBC #### [address] Basic Metabolic Panelon 07-2 0-2022 Anion gap [Moles/Vol] 9.8 mmol/L Normal 6.0-15.0 [facility] Comment on above: Performed By: #### C AION #### [facility] , #### HEPATIC, HS TROP, BMP, MG, PTT, CK, BNP, PT, CBC #### [address] Calcium [Mass/Vol] 8.1 mg/dL Low 8.6-10.3 [facility] Comment on above: Performed By: #### C AION #### [facility] , #### HEPATIC, HS TROP, BMP, MG, PTT, CK, BNP, PT, CBC #### [address] Chloride [Moles/Vol] 101 mmol/L Normal 98-107 [facility] Comment on above: Performed By: #### C AION #### [facility] , #### HEPATIC, HS TROP, BMP, MG, PTT, CK, BNP, PT, CBC #### [address] CO2 [Moles/Vol] 38.1 mmol/L High 21.0-31.0 [facility] Comment on above: Performed By: #### C AION #### [facility] , #### HEPATIC, HS TROP, BMP, MG, PTT, CK, BNP, PT, CBC #### [address] Creatinine [Mass/Vol] 1.76 mg/dL High 0.60-1.20 [facility] Comment on above: Performed By: #### C AION #### [facility] , #### HEPATIC, HS TROP, BMP, MG, PTT, CK, BNP, PT, CBC #### [facility] [address] Creatinine Clr Calc Pharmacy 25.90 Normal [facility] Comment on above: Performed By: #### C AION #### [facility] , #### HEPATIC, HS TROP, BMP, MG, PTT, CK, BNP, PT, CBC #### [address] GFR/1.73 sq M.predicted MDRD (S/P/Bld) [Vol rate/Area] 30.185 mL/min/{1.73_m2} Normal [facility] Comment on above: Performed By: #### C AION #### [facility] , #### HEPATIC, HS TROP, BMP, MG, PTT, CK, BNP, PT, CBC #### [address] Glucose [Mass/Vol] 100 mg/dL Normal 70-100 [facility] Comment on above: Result Comment: [place] Glucose Reference Range is dependent on time and content of last meal. Glucose of more than 200 mg/dL in a nonstressed, ambulatory subject supports the diagnosis of Diabetes Mellitus. ADA recommended reference range Performed By: #### C AION #### [facility] , #### HEPATIC, HS TROP, BMP, MG, PTT, CK, BNP, PT, CBC #### [address] Potassium [Moles/Vol] 4.9 mmol/L Normal 3.5-5.1 [facility] Comment on above: Performed By: #### C AION #### [facility] , #### HEPATIC, HS TROP, BMP, MG, PTT, CK, BNP, PT, CBC #### [address] Sodium [Moles/Vol] 144 mmol/L Normal 136-145 [facility] Comment on above: Performed By: #### C AION #### [facility] , #### HEPATIC, HS TROP, BMP, MG, PTT, CK, BNP, PT, CBC #### [address] Urea nitrogen [Mass/Vol] 28 mg/dL High 7-25 [facility] Comment on above: Performed By: #### C AION #### [facility] , #### HEPATIC, HS TROP, BMP, MG, PTT, CK, BNP, PT, CBC #### [address] Complete Blood Count Auto Di ffon 11-19-2022 Basophils (Bld) [#/Vol] 0.0 10*3/uL Normal 0.0-0.2 [facility] Comment on above: Result Comment: PERF ORMED BY: [place] [address] PATHOLOGIST MANAGER INVESTIGATIONS KOBE VENCES M.D. Performed By: #### C AION #### [facility] , #### HEPATIC, HS TROP, BMP, MG, PTT, CK, BNP, PT, CBC #### [address] Basophils/100 WBC (Bld) 0.7 % Normal . [facility] Comment on above: Performed By: #### C AION #### [facility] , #### HEPATIC, HS TROP, BMP, MG, PTT, CK, BNP, PT, CBC #### [address] Eosinophils (Bld) [#/Vol] 0.1 10*3/uL Normal 0.0-0.45 [facility] Comment on above: Performed By: #### C AION #### [facility] , #### HEPATIC, HS TROP, BMP, MG, PTT, CK, BNP, PT, CBC #### [address] Eosinophils/100 WBC (Bld) 2.0 % Normal . [facility] Comment on above: Performed By: #### C AION #### [facility] , #### HEPATIC, HS TROP, BMP, MG, PTT, CK, BNP, PT, CBC #### [address] Erythrocyte distribution width (RBC) [Ratio] 15.5 % High 11.9-15.3 [facility] Comment on above: Performed By: #### C AION #### [facility] , #### HEPATIC, HS TROP, BMP, MG, PTT, CK, BNP, PT, CBC #### [address] Hematocrit (Bld) [Volume fraction] 26.7 % Low 34.0-46.4 [facility] Comment on above: Performed By: #### C AION #### [facility] , #### HEPATIC, HS TROP, BMP, MG, PTT, CK, BNP, PT, CBC #### [address] Hemoglobin (Bld) [Mass/Vol] 8.5 g/dL Low 11.8-15.4 [facility] Comment on above: Performed By: #### C AION #### [facility] , #### HEPATIC, HS TROP, BMP, MG, PTT, CK, BNP, PT, CBC #### [address] Lymphocytes (Bld) [#/Vol] 1.6 10*3/uL Normal 1.00-4.8 [facility] Comment on above: Performed By: #### C AION #### [facility] , #### HEPATIC, HS TROP, BMP, MG, PTT, CK, BNP, PT, CBC #### [address] Lymphocytes/100 WBC (Bld) 25.1 % Normal . [facility] Comment on above: Performed By: #### C AION #### [facility] , #### HEPATIC, HS TROP, BMP, MG, PTT, CK, BNP, PT, CBC #### [address] MCH (RBC) [Entitic mass] 29.0 pg Normal 24.7-34.3 [facility] Comment on above: Performed By: #### C AION #### [facility] , #### HEPATIC, HS TROP, BMP, MG, PTT, CK, BNP, PT, CBC #### [address] MCV (RBC) [Entitic vol] 91.3 fL Normal 80-100 [facility] Comment on above: Performed By: #### C AION #### [facility] , #### HEPATIC, HS TROP, BMP, MG, PTT, CK, BNP, PT, CBC #### [address] Mean Corpuscular HGB Conc 31.8 g/dL Low 32.0-35.0 [facility] Comment on above: Performed By: #### C AION #### [facility] , #### HEPATIC, HS TROP, BMP, MG, PTT, CK, BNP, PT, CBC #### [address] Monocytes (Bld) [#/Vol] 0.4 10*3/uL Normal 0.0-0.8 [facility] Comment on above: Performed By: #### C AION #### [facility] , #### HEPATIC, HS TROP, BMP, MG, PTT, CK, BNP, PT, CBC #### [address] Monocytes/100 WBC (Bld) 6.6 % Normal . [facility] Comment on above: Performed By: #### C AION #### [facility] , #### HEPATIC, HS TROP, BMP, MG, PTT, CK, BNP, PT, CBC #### [address] Neutrophils (Bld) [#/Vol] 4.1 10*3/uL Normal 1.8-7.7 [facility] Comment on above: Performed By: #### C AION #### [facility] , #### HEPATIC, HS TROP, BMP, MG, PTT, CK, BNP, PT, CBC #### [address] Neutrophils/100 WBC (Bld) 65.6 % Normal . [facility] Comment on above: Performed By: #### C AION #### [facility] , #### HEPATIC, HS TROP, BMP, MG, PTT, CK, BNP, PT, CBC #### [address] NRBC% 0.1 /100{WBC} Normal 0-0.5 [facility] Comment on above: Performed By: #### C AION #### [facility] , #### HEPATIC, HS TROP, BMP, MG, PTT, CK, BNP, PT, CBC #### [address] Platelet mean volume (Bld) [Entitic vol] 7.6 fL Normal 6.3-10.7 [facility] Comment on above: Performed By: #### C AION #### [facility] , #### HEPATIC, HS TROP, BMP, MG, PTT, CK, BNP, PT, CBC #### [place] [id number] [place] Platelets (Bld) [#/Vol] 140 10*3/uL Low 150-450 [facility] Comment on above: Performed By: #### C AION #### [facility] , #### HEPATIC, HS TROP, BMP, MG, PTT, CK, BNP, PT, CBC #### [address] RBC (Bld) [#/Vol] 2.93 10*6/uL Low 3.60-5.00 [facility] Comment on above: Performed By: #### C AION #### [facility] , #### HEPATIC, HS TROP, BMP, MG, PTT, CK, BNP, PT, CBC #### [address] WBC (Bld) [#/Vol] 6.2 10*3/uL Normal 3.8-11.6 [facility] Comment on above: Performed By: #### C AION #### [facility] , #### HEPATIC, HS TROP, BMP, MG, PTT, CK, BNP, PT, CBC #### [address] Creatine Kinaseon 11-19-2022 CK [Catalytic activity/Vol] 35 U/L Normal 30-223 [facility] Comment on above: Performed By: #### G LULS #### Point of Care testing , Creatine kinase [Enzymatic a ctivity/volume] in Serum or PlasmaOrdered By: Gina Poole on 11-19-2022 CK [Catalytic activity/Vol] 31 U/L Normal 30-223 [facility] Comment on above: Order Comment: ultra sound come back in 10 mins Performed By: #### C AION #### [facility] , #### HEPATIC, HS TROP, BMP, MG, PTT, CK, BNP, PT, CBC #### [address] ECH echo transthoracicon ECH echo transthoracic [facility] [place] [address] [place] [address] Echocardiogram Signed Patient: Kate Hagen MR#: [id number] 52 : 1950 Acct:[id number] Age/Sex: 71 / F ADM Date: 11/18/22 Loc: Room: [address] [place] [address] Type: ADM IN Attending Dr: Gina Poole DO Ordering Provider: Gina Poole DO Date of Service: 11/18/22 [facility] echo transthoracic: Shortness of Breath/Dyspnea Copies to: Colin Levy MD, FACC Gina Poole DO Height: 60 [...] 1.5 cm2 (more content not included)... Normal [facility] Ferritin [Mass/volume] in Se rum or PlasmaOrdered By: Gina Poole on 11-19-2022 Ferritin [Mass/Vol] 388.8 ng/mL High 11.0-306.8 [facility] Comment on above: Result Comment: PERF ORMED BY: [place] [address] PATHOLOGIST MANAGER INVESTIGATIONS KOBE VENCES M.D. Performed By: #### C AION #### [facility] , #### HEPATIC, HS TROP, BMP, MG, PTT, CK, BNP, PT, CBC #### [facility] [address] [place] [address] Glucose Poct Glucometerson 0 11-19-2022 Glucose [Mass/Vol] 140 mg/dL Normal [facility] Comment on above: Result Comment: [place] om Glucose Reference Range is dependent on time and content of last meal. Glucose of more than 200 mg/dL in a nonstressed, ambulatory subject supports the diagnosis of Diabetes Mellitus. PERFORMED BY: [place] [address] PATHOLOGIST MANAGER INVESTIGATIONS KOBE VENCES M.D. Performed By: #### G LULS #### Point of Care testing , Commemt1 Glu2: Cleaned Meter Normal [facility] Comment on above: Result Comment: PERF ORMED BY: [place] [address] PATHOLOGIST MANAGER INVESTIGATIONS KOBE VENCES M.D. Performed By: #### G LULS #### Point of Care testing , Glucose [Mass/Vol] 168 mg/dL Normal [facility] Comment on above: Result Comment: [place] Glucose Reference Range is dependent on time and content of last meal. Glucose of more than 200 mg/dL in a nonstressed, ambulatory subject supports the diagnosis of Diabetes Mellitus. Performed By: #### G LULS #### Point of Care testing , Iron [Mass/volume] in Serum or PlasmaOrdered By: Gina Poole on 11-19-2022 Iron [Mass/Vol] 28 ug/dL Low 50-212 [facility] Comment on above: Performed By: #### C AION #### [facility] , #### HEPATIC, HS TROP, BMP, MG, PTT, CK, BNP, PT, CBC #### [facility] [address] Iron and TIBC Profileon 11-01 0-2022 % Iron Saturation 11.8 % Low 20-50 [facility] Comment on above: Performed By: #### C AION #### [facility] , #### HEPATIC, HS TROP, BMP, MG, PTT, CK, BNP, PT, CBC #### [facility] [address] Total Iron Binding Capacity 238 ug/dL Low 255-450 [facility] Comment on above: Performed By: #### C AION #### [facility] , #### HEPATIC, HS TROP, BMP, MG, PTT, CK, BNP, PT, CBC #### [facility] [address] Iron binding capacity [Mass/ volume] in Serum or PlasmaOrdered By: Gina Poole on 11-19-2022 Iron binding capacity [Mass/Vol] 238 ug/dL 255-450 [facility] Iron saturation [Mass Fracti on] in Serum or PlasmaOrdered By: Gina Poole on 11-19-2022 Iron saturation [Mass fraction] 11.8 % 20-50 [facility] Magnesium [Mass/volume] in S arti or PlasmaOrdered By: Gina Poole on 11-19-2022 Magnesium [Mass/Vol] 1.5 mg/dL Low 1.9-2.7 [facility] Comment on above: Performed By: #### C AION #### [facility] , #### HEPATIC, HS TROP, BMP, MG, PTT, CK, BNP, PT, CBC #### [facility] [address] No Panel InformationOrdered By: Gina Poole on 11-19-2022 Bedside Glucose Comment Glu2: cleaned meter [facility] Transferrin [Mass/volume] in Serum or PlasmaOrdered By: Gina Poole on 11-19-2022 Transferrin [Mass/Vol] 170 mg/dL Low 203-362 [facility] Comment on above: Performed By: #### C AION #### [facility] , #### HEPATIC, HS TROP, BMP, MG, PTT, CK, BNP, PT, CBC #### [facility] [address] [place] [address] Troponin I High Sensitivityo n 11-19-2022 Troponin I High Sensitivity 19.6 pg/mL High 0.0-15.0 [facility] Comment on above: Order Comment: ultra sound come back in 10 mins Result Comment: PERF ORMED BY: [place] [address] PATHOLOGIST MANAGER INVESTIGATIONS KOBE VENCES M.D. Performed By: #### C AION #### [facility] , #### HEPATIC, HS TROP, BMP, MG, PTT, CK, BNP, PT, CBC #### [facility] [address] [place] [address] Troponin I High Sensitivity 17.3 pg/mL High 0.0-15.0 [facility] Comment on above: Result Comment: PERF ORMED BY: [place] [address] PATHOLOGIST MANAGER INVESTIGATIONS KOBE VENCES M.D. Performed By: #### G LULS #### Point of Care testing , Troponin I.cardiac [Mass/vol ume] in Serum or Plasma by Detection limit <= 0.01 ng/Ordered By: Gina Poole on 11-19-2022 Troponin I.cardiac DL <= 0.01 ng/mL [Mass/Vol] 19.6 pg/mL 0.0-15.0 [facility] Activated partial thrombopla stin time (aPTT) in platelet poor plasma by coagulation aOrdered By: Venkatesh Trammell on 11-18-2022 aPTT Coag (PPP) [Time] 35.1 s 25.1-36.5 [facility] Alanine aminotransferase [En zymatic activity/volume] in Serum or PlasmaOrdered By: Venkatesh Trammell on 11-18-2022 ALT [Catalytic activity/Vol] 10 U/L 7-52 [facility] Albumin [Mass/volume] in Ser um or Plasma by Bromocresol green (BCG) dye binding methoOrdered By: Venkatesh Trammell on 11-18-2022 Albumin BCG dye [Mass/Vol] 3.4 g/dL 3.5-5.7 [facility] Alkaline phosphatase [Enzyma tic activity/volume] in Serum or PlasmaOrdered By: Venkatesh Trammell on 11-18-2022 ALP [Catalytic activity/Vol] 54 U/L 34-104 [facility] Aspartate aminotransferase [ Enzymatic activity/volume] in Serum or PlasmaOrdered By: Venkatesh Trammell on 11-18-2022 AST [Catalytic activity/Vol] 15 U/L 13-39 [facility] Basophils Auto (Bld) [#/Vol] Ordered By: Venkatesh Trammell on 11-18-2022 Basophils (Bld) [#/Vol] 0.0 10*3/uL 0.0-0.2 [facility] Basophils/100 WBC Auto (Bld) Ordered By: Venkatesh Trammell on 11-18-2022 Basophils/100 WBC (Bld) 0.7 % . [facility] Bilirubin.direct [Mass/volum e] in Serum or PlasmaOrdered By: Venkatesh Trammell on 11-18-2022 Bilirubin.direct [Mass/Vol] 0.10 mg/dL 0.03-0.18 [facility] Bilirubin.total [Mass/volume ] in Serum or PlasmaOrdered By: Venkatesh Trammell on 11-18-2022 Bilirubin [Mass/Vol] 0.4 mg/dL 0.3-1.0 [facility] Calcium [Mass/volume] in Ser um or PlasmaOrdered By: Venkatesh Trammell on 11-18-2022 Calcium [Mass/Vol] 8.1 mg/dL 8.6-10.3 [facility] Carbon dioxide, total [Moles /volume] in Serum or PlasmaOrdered By: Venkatesh Trammell 11-18-2022 CO2 [Moles/Vol] 36.2 mmol/L 21.0-31.0 [facility] Chloride [Moles/volume] in S arti or PlasmaOrdered By: Venkatesh Trammell on 11-18-2022 Chloride [Moles/Vol] 101 mmol/L 98-107 [facility] Creatine kinase [Enzymatic a ctivity/volume] in Serum or PlasmaOrdered By: Gina Poole on 11-18-2022 CK [Catalytic activity/Vol] 44 U/L 30-223 [facility] Creatinine [Mass/volume] in Serum or PlasmaOrdered By: Venkatesh Trammell on 11-18-2022 Creatinine [Mass/Vol] 1.78 mg/dL 0.60-1.20 [facility] Eosinophils Auto (Bld) [#/Vo l]Ordered By: Venkatesh Trammell on 11-18-2022 Eosinophils (Bld) [#/Vol] 0.1 10*3/uL 0.0-0.45 [facility] Eosinophils/100 WBC Auto (Bl d)Ordered By: Venkatesh Trammell on 11-18-2022 Eosinophils/100 WBC (Bld) 1.7 % . [facility] Erythrocyte distribution wid th Auto (RBC) [Ratio]Ordered By: Venkatesh Trammell on 11-18-2022 Erythrocyte distribution width (RBC) [Ratio] 15.2 % 11.9-15.3 [facility] Globulin Calc (S) [Mass/Vol] Ordered By: Venkatesh Trammell on 11-18-2022 Globulin (S) [Mass/Vol] 3.2 g/dL [facility] Glucose [Mass/volume] in Ser um or PlasmaOrdered By: Venkatesh Trammell on 11-18-2022 Glucose [Mass/Vol] 101 mg/dL 70-100 [facility] Comment on above: ADA recommended refe rence rangeRandom Glucose Reference Range is dependent on time and content of last meal. Glucose of more than 200 mg/dL in a nonstressed, ambulatory subject supports the diagnosis of Diabetes Mellitus. Hematocrit Auto (Bld) [Volum e fraction]Ordered By: Venkatesh Trammell on 11-18-2022 Hematocrit (Bld) [Volume fraction] 26.8 % 34.0-46.4 [facility] Hemoglobin [Mass/volume] in BloodOrdered By: Venkatesh Trammell on 11-18-2022 Hemoglobin (Bld) [Mass/Vol] 8.7 g/dL 11.8-15.4 [facility] Laboratory - CoagulationOrde red By: Venkatesh Trammell on 11-18-2022 PT Coag (PPP) [Time] 17.6 s 9.0-12.9 [facility] Leukocytes [#/volume] correc loan for nucleated erythrocytes in Blood by Automated counOrdered By: Venkatesh Trammell on 11-18-2022 WBC corrected for nucl RBC Auto (Bld) [#/Vol] 6.8 10*3/uL 3.8-11.6 [facility] Lymphocytes Auto (Bld) [#/Vo l]Ordered By: Venkatesh Trammell on 11-18-2022 Lymphocytes (Bld) [#/Vol] 1.5 10*3/uL 1.00-4.8 [facility] Lymphocytes/100 WBC Auto (Bl d)Ordered By: Venkatesh Trammell on 11-18-2022 Lymphocytes/100 WBC (Bld) 22.5 % . [facility] MCH Auto (RBC) [Entitic mass ]Ordered By: Venkatesh Trammell on 11-18-2022 MCH (RBC) [Entitic mass] 29.1 pg 24.7-34.3 [facility] MCHC Auto (RBC) [Mass/Vol]Or dered By: Venkatesh Trammell on 11-18-2022 MCHC (RBC) [Mass/Vol] 32.4 g/dL 32.0-35.0 [facility] MCV Auto (RBC) [Entitic vol] Ordered By: Venkatesh Trammell on 11-18-2022 MCV (RBC) [Entitic vol] 89.8 fL 80-100 [facility] Monocyte distribution width [Entitic volume] in Blood by AutomatedOrdered By: Venkatesh Trammell on 11-18-2022 Monocyte distribution width Auto (Bld) [Entitic vol] 16.05 % 0.00-20.00 [facility] Monocytes Auto (Bld) [#/Vol] Ordered By: Venkatesh Trammell on 11-18-2022 Monocytes (Bld) [#/Vol] 0.4 10*3/uL 0.0-0.8 [facility] Monocytes/100 WBC Auto (Bld) Ordered By: Venkatesh Trammell on 11-18-2022 Monocytes/100 WBC (Bld) 5.7 % . [facility] Natriuretic peptide B [Mass/ Vol]Ordered By: Venkatesh Trammell on 11-18-2022 Natriuretic peptide B (Bld) [Mass/Vol] 2080.0 pg/mL 5-100 [facility] Neutrophils Auto (Bld) [#/Vo l]Ordered By: Venkatesh Trammell on 11-18-2022 Neutrophils (Bld) [#/Vol] 4.7 10*3/uL 1.8-7.7 [facility] Neutrophils/100 WBC Auto (Bl d)Ordered By: Venkatesh Trammell on 11-18-2022 Neutrophils/100 WBC (Bld) 69.4 % . [facility] No Panel InformationOrdered By: Venkatesh Trammell on 11-18-2022 Estimated GFR (CKD-EPI) 29.779 mL/Min [facility] Creatinine Clearance (Chem 25.51 [facility] Nucleated erythrocytes [Pres ence] in Blood by Automated countOrdered By: Venkatesh Trammell on 11-18-2022 Nucleated RBC Auto Ql (Bld) 0.0 /100{WBC} 0-0.5 [facility] Platelet mean volume Auto (B ld) [Entitic vol]Ordered By: Venkatesh Trammell on 11-18-2022 Platelet mean volume (Bld) [Entitic vol] 8.2 fL 6.3-10.7 [facility] Platelet poor plasma interna tional normalized ratio (INR) by coagulation assay (relatOrdered By: Venkatesh Trammell on 11-18-2022 INR Coag (PPP) [Relative time] 1.5 {INR} [facility] Comment on above: INR Therapeutic Rang [...] 11-18-2022 Platelets (Bld) [#/Vol] 169 10*3/uL 150-450 [facility] Potassium [Moles/volume] in Serum or PlasmaOrdered By: Venkatesh Trammell on 11-18-2022 Potassium [Moles/Vol] 5.2 mmol/L 3.5-5.1 [facility] Protein [Mass/volume] in Ser um or PlasmaOrdered By: Venkatesh Trammell on 11-18-2022 Protein [Mass/Vol] 6.6 g/dL 6.4-8.9 [facility] RBC Auto (Bld) [#/Vol]Ordere d By: Venkatesh Trammell on 11-18-2022 RBC (Bld) [#/Vol] 2.98 10*6/uL 3.60-5.00 [facility] Serum or plasma albumin/glob ulin mass ratioOrdered By: Venkatesh Trammell on 11-18-2022 Albumin/Globulin [Mass ratio] 1.1 {ratio} [facility] Serum or plasma anion gap de terminationOrdered By: Venkatesh Trammell on 11-18-2022 Anion gap [Moles/Vol] 10.0 mmol/L 6.0-15.0 [facility] Serum or plasma non-glucuron idated bilirubin measurement (mass/volume)Ordered By: Venkatesh Trammell on 11-18-2022 Bilirubin.indirect [Mass/Vol] 0.3 mg/dL [facility] Sodium [Moles/volume] in Ser um or PlasmaOrdered By: Venkatesh Trammell on 11-18-2022 Sodium [Moles/Vol] 142 mmol/L 136-145 [facility] Troponin I.cardiac [Mass/vol ume] in Serum or Plasma by Detection limit <= 0.01 ng/Ordered By: Gina Poole on 11-18-2022 Troponin I.cardiac DL <= 0.01 ng/mL [Mass/Vol] 18.4 pg/mL 0.0-15.0 [facility] Urea nitrogen [Mass/volume] in Serum or PlasmaOrdered By: Venkatesh Trammell on 11-18-2022 Urea nitrogen [Mass/Vol] 29 mg/dL 7-25 [facility] WBC Auto (Bld) [#/Vol]Ordere d By: Venkatesh Trammell on 11-18-2022 WBC (Bld) [#/Vol] 6.8 10*3/uL 3.8-11.6 [facility] 36on 10-30-2022 36 Milena from [facility] called to make you aware that patient has gained 5lbs since the [employer] increase on 10/27. She said her lungs are clear and diminished. She is not coughing and she is not edematous. Did you want to make any other changes? Please advise. Thanks. Normal [facility] Telephoneon 10-30-2022 Telephone [id number] Maria G Hagen 1950 F Date Provider Department Center 10/30/2022 [facility] Family History Problem Relation Age of Onset Stroke Mother Hypertension Mother Heart attack Father Hypertension Sister Heart attack Sister Heart attack Brother Family Status - Relation Status Age at Mother Father Sister Brother Normal [facility] Office Visiton 10-27-2022 Follow-up visit [id number] Maria G Hagen 1950 F Date Provider Department Center 10/27/2022 PHILL HALEY [facility] Family History Problem Relation Age of Onset Stroke Mother Hypertension Mother Heart attack Father Hypertension Sister Heart attack Sister Heart attack Brother Family Status - Relation Status Age at Mother Father Sister Brother Level of Service:99533 [place] OFFICE/OUTPATIENT ESTABLISHED MOD MDM 30-39 MIN Normal [facility] Office Visiton 09-22-2022 Follow-up visit [id number] Maria G Hagen 1950 Date Provider Department Center 09/22/2022 SILVA COOK [facility] Family History Problem Relation Age of Onset Stroke Mother Hypertension Mother Heart attack Father Hypertension Sister Heart attack Sister Heart attack Brother Family Status - Relation Status Age at Mother Father Sister Brother Level of Service:59970 [place] OFFICE/OUTPATIENT ESTABLISHED LOW MDM 20-29 MIN Reason for Visit and Comments: Follow-up [398909] - Event monitor follow up Normal [facility] BNPon 09-08-2022 Natriuretic peptide B (Bld) [Mass/Vol] 00700.0 pg/mL Critically high <=900.0 [facility] Comment on above: Performed By: #### C MP, BNP ####[facility] [address] [place], [place] [address]Dr. Ivette Hernandez CBC AUTO DIFFon 09-08-2022 BASO # 0.0 103/ul Normal 0.0-0.1 [facility] Comment on above: Performed By: #### C BC ####[facility] [address] [place], [place] [address]Dr. Ivette Hernandez Basophils/100 WBC (Bld) 0.0 % Critically low 0.2-2.0 [facility] Comment on above: Performed By: #### C BC ####[facility] [address] [place], [place] [address]Dr. Ivette Hernandez EO # 0.0 103/ul Normal 0.0-0.7 [facility] Comment on above: Performed By: #### C BC ####[facility] [address] [place], [place] [address]Dr. Ivette Hernandez Eosinophils/100 WBC (Bld) 0.0 % Critically low 0.9-7.0 [facility] Comment on above: Performed By: #### C BC ####[facility] [address] [place], [place] [address]Dr. Ivette Hernandez Erythrocyte distribution width (RBC) [Ratio] 14.0 % Normal 11.0-15.0 [facility] Comment on above: Performed By: #### C BC ####[facility] [address] [place], [place] [address]Dr. Ivette Hernandez Hematocrit (Bld) [Volume fraction] 26.0 % Critically low 36.0-48.0 [facility] Comment on above: Performed By: #### C BC ####[facility] [address] [place], [place] [address]Dr. Ivette Hernandez Hemoglobin (Bld) [Mass/Vol] 8.2 g/dL Critically low 12.0-16.0 [facility] Comment on above: Performed By: #### C BC ####[facility] [address]be[address] [place], [place] [address]DrJesse Hernandez IG # 0.06 10e3/ul Critically high 0.00-0.03 [facility] Comment on above: Performed By: #### C BC ####[facility] [address] [place] [address]DrJesse Kwonjun David IG % 0.7 % Critically high 0.0-0.5 [facility] Comment on above: Performed By: #### C BC ####[facility] [address] [place] [address]DrJesse Hernandez LYMPH # 0.7 103/ul Critically low 1.2-3.8 [facility] Comment on above: Performed By: #### C BC ####[facility] [address] [place], [place] [address]DrJesse Hernandez Lymphocytes/100 WBC (Bld) 8.2 % Critically low 20.5-60.0 [facility] Comment on above: Performed By: #### C BC ####[facility] [address] [place], [place] [address]DrJesse Hernandez MANUAL DIFF REQ NO Normal [facility] Comment on above: Performed By: #### C BC ####[facility] [address] [place], [place] [address]DrJesse Hernandez MCH (RBC) [Entitic mass] 29.4 pg Normal 26.7-34.0 [facility] Comment on above: Performed By: #### C BC ####[facility] [address] [place], [place] [address]DrJesse Hernandez MCHC (RBC) [Mass/Vol] 31.5 g/dL Normal 29.9-35.2 [facility] Comment on above: Performed By: #### C BC ####[facility] [address] [place], [place] [address]DrJeses Hernandez MCV (RBC) [Entitic vol] 93.2 fL Normal 81.0-99.0 [facility] Comment on above: Performed By: #### C BC ####[facility] [address] [place], [place] [address]Dr. Ivette Hernandez MONO # 0.3 103/ul Normal 0.3-0.8 [facility] Comment on above: Performed By: #### C BC ####[facility] [address] [place] [address]Dr. Ivette Hernandez Monocytes/100 WBC (Bld) 3.5 % Normal 1.7-12.0 [facility] Comment on above: Performed By: #### C BC ####[facility] [address] [place] [address]Dr. Ivette Hernandez NEUT # 7.6 103/ul Critically high 1.4-6.5 [facility] Comment on above: Performed By: #### C BC ####[facility] [address] [place] [address]DrJesse Ivette Hernandez Neutrophils/100 WBC (Bld) 87.6 % Critically high 43.0-75.0 [facility] Comment on above: Performed By: #### C BC ####[facility] [address]uz[address] [place], [place] [address]DrJesse Ivette Hernandez Platelet mean volume (Bld) [Entitic vol] 9.6 fL Normal 9.5-13.5 [facility] Comment on above: Performed By: #### C BC ####[facility] Ba[address]wy[address] [place], [place] [address]Dr. Ivette Hernandez PLT 224 103/ul Normal 150-450 [facility] Comment on above: Performed By: #### C BC ####[facility] [address] [place] [id number] Ivette Hernandez RBC 2.79 106/ul Critically low 4.20-5.40 [facility] Comment on above: Performed By: #### C BC ####[facility] [address] [place] [id number] Ivette Hernandez WBC 8.7 103/ul Normal 4.0-11.0 [facility] Comment on above: Performed By: #### C BC ####[facility] [address]fi[address] [place], [place] [address]DrJesse Cherjun Hernandez PROF 14(COMP METB)on 023 Albumin [Mass/Vol] 2.5 g/dL Critically low 3.4-5.0 [facility] Comment on above: Performed By: #### C MP, BNP ####[facility] [address] [place] [address]Dr. Ivette Hernandez Albumin/Globulin [Mass ratio] 0.6 {ratio} Normal [facility] Comment on above: Performed By: #### C MP, BNP ####[facility] [address] [place] [address]Dr. Ivette Hernandez ALP [Catalytic activity/Vol] 66 U/L Normal 46-116 [facility] Comment on above: Performed By: #### C MP, BNP ####[facility] [address]yg[address] [place], [place] [address]Dr. Ivette Hernandez ALT [Catalytic activity/Vol] 20 U/L Normal 14-59 [facility] Comment on above: Performed By: #### C MP, BNP ####[facility] [address]fbpap[address] [place] [address]Dr. Ivette Hernandez Anion gap [Moles/Vol] 9.1 mmol/L Normal [facility] Comment on above: Performed By: #### C MP, BNP ####[facility] [address]wy[address]vn[address] [place], [place] [address]Dr. Ivette Hernandez AST [Catalytic activity/Vol] 11 U/L Critically low 15-37 [facility] Comment on above: Performed By: #### C MP, BNP ####[facility] Un[address]icgwpk[address] [place], [place] [address]Dr. Ivette Hernandez Bilirubin [Mass/Vol] 0.4 mg/dL Normal 0.2-1.0 [facility] Comment on above: Performed By: #### C MP, BNP ####[facility] [address] [place], [place] [address]Dr. Ivette Hernandez Calcium [Mass/Vol] 8.5 mg/dL Normal 8.5-10.1 [facility] Comment on above: Performed By: #### C MP, BNP ####[facility] [address]arokr[address] [place], [place] [address]Dr. Ivette Hernandez Chloride [Moles/Vol] 103 mmol/L Normal 98-107 [facility] Comment on above: Performed By: #### C MP, BNP ####[facility] [address]qrvwpzc[address] [place] [address]Dr. Ivette Hernandez CO2 [Moles/Vol] 37.1 mmol/L Critically high 21.0-32.0 [facility] Comment on above: Performed By: #### C MP, BNP ####[facility] Youdirovvb[address] [place], [place] [address]Dr. Ivette Hernandez Creatinine [Mass/Vol] 1.87 mg/dL Critically high 0.55-1.02 [facility] Comment on above: Performed By: #### C MP, BNP ####[facility] Tsirqrevuf[address] [place] [address]Dr. Ivette Hernandez EGFR-AF [place] 32 mL/min/1.73m2 Critically low >=60 [facility] Comment on above: Performed By: #### C MP, BNP ####[facility] Ph[address]mpyo[address] [place] [address]Dr. Ivette Hernandez EGFR-NON AF [place] 26 mL/min/1.73m2 Critically low >=60 [facility] Comment on above: Performed By: #### C MP, BNP ####[facility] [address]zgrqok[address] [place] [address]Dr. Ivette Hernandez Globulin (S) [Mass/Vol] 4.2 g/dL Normal [facility] Comment on above: Performed By: #### C MP, BNP ####[facility] [address]fnfe[address] [place], [place] [address]Dr. Ivette Hernandez Glucose [Mass/Vol] 196 mg/dL Critically high 74-[address] [facility] Comment on above: Performed By: #### C MP, BNP ####[facility] [address]zyxazu[address] [place], [place] [address]Dr. Ivette Hernandez Potassium [Moles/Vol] 4.2 mmol/L Normal 3.5-5.1 [facility] Comment on above: Performed By: #### C MP, BNP ####[facility] [address]ytpf[address] [place], [place] [address]Dr. Cherjun Hernandez Protein [Mass/Vol] 6.7 g/dL Normal 6.4-8.2 [facility] Comment on above: Performed By: #### C MP, BNP ####[facility] Rtdeineofj[address] [place], [place] [address]Dr. Ivette Hernandez Sodium [Moles/Vol] 145 mmol/L Normal 136-145 [facility] Comment on above: Performed By: #### C MP, BNP ####[facility] [address]ahj[address] [place] [address]Dr. Ivette Hernandez Urea nitrogen [Mass/Vol] 45.0 mg/dL Critically high 7.0-18.0 [facility] Comment on above: Performed By: #### C MP, BNP ####[facility] Z[address]vuoox[address] [place] [address]Dr. Ivette Hernandez Urea nitrogen/Creatinine [Mass ratio] 24.1 mg/mg Normal [facility] Comment on above: Performed By: #### C MP, BNP ####[facility] N[address]ztbfoeu[address] [place], [place] [address]Dr. Cherjun David BNPon 09-07-2022 Natriuretic peptide B (Bld) [Mass/Vol] 03548.0 pg/mL Critically high <=900.0 [facility] Comment on above: Performed By: #### C MP, BNP ####[facility] [address] [place], [place] [address]Dr. Cherjun David CBC AUTO DIFFon 09-07-2022 BASO # 0.0 103/ul Normal 0.0-0.1 [facility] Comment on above: Performed By: #### C BC ####[facility] [address]quen[address] [place], [place] [address]Dr. Ivette Hernandez Basophils/100 WBC (Bld) 0.1 % Critically low 0.2-2.0 [facility] Comment on above: Performed By: #### C BC ####[facility] [address]kw[address]evq[address] [place], [place] [address]Dr. Ivette Hernandez EO # 0.0 103/ul Normal 0.0-0.7 [facility] Comment on above: Performed By: #### C BC ####[facility] [address] [place] [address]Dr. Ivette Hernandez Eosinophils/100 WBC (Bld) 0.0 % Critically low 0.9-7.0 [facility] Comment on above: Performed By: #### C BC ####[facility] [address] [place] [address]Dr. Ivette Hernandez Erythrocyte distribution width (RBC) [Ratio] 13.9 % Normal 11.0-15.0 [facility] Comment on above: Performed By: #### C BC ####[facility] [address]ptzs[address] [place], [place] [address]Dr. Ivette Hernandez Hematocrit (Bld) [Volume fraction] 26.6 % Critically low 36.0-48.0 [facility] Comment on above: Performed By: #### C BC ####[facility] [address] [place], [place] [address]Dr. Ivette Hernandez Hemoglobin (Bld) [Mass/Vol] 8.3 g/dL Critically low 12.0-16.0 [facility] Comment on above: Performed By: #### C BC ####[facility] [address] [place], [place] [address]Dr. Ivette Hernandez IG # 0.07 10e3/ul Critically high 0.00-0.[address] [facility] Comment on above: Performed By: #### C BC ####[facility] [address] [place] [address]Dr. Ivette Hernandez IG % 0.8 % Critically high 0.0-0.5 [facility] Comment on above: Performed By: #### C BC ####[facility] [address] [place], [place] [address]Dr. Ivette Hernandez LYMPH # 0.6 103/ul Critically low 1.2-3.8 [facility] Comment on above: Performed By: #### C BC ####[facility] [address] [place] [address]Dr. Ivette David Lymphocytes/100 WBC (Bld) 7.2 % Critically low 20.5-60.0 [facility] Comment on above: Performed By: #### C BC ####[facility] [address] [place] [address]Dr. Cherjun Hernandez MANUAL DIFF REQ NO Normal [facility] Comment on above: Performed By: #### C BC ####[facility] [address] [place] [address]Dr. Ivette David MCH (RBC) [Entitic mass] 29.5 pg Normal 26.7-34.0 [facility] Comment on above: Performed By: #### C BC ####[facility] [address]fr[address]nsyir[address] [place], [place] [address]Dr. Cherjun Hernandez MCHC (RBC) [Mass/Vol] 31.2 g/dL Normal 29.9-35.2 [facility] Comment on above: Performed By: #### C BC ####[facility] [address] [place], [place] [address]Dr. Ivette Hernandez MCV (RBC) [Entitic vol] 94.7 fL Normal 81.0-99.0 [facility] Comment on above: Performed By: #### C BC ####[facility] [address]stla[address] [place], [place] [address]Dr. Ivette Hernandez MONO # 0.6 103/ul Normal 0.3-0.8 [facility] Comment on above: Performed By: #### C BC ####[facility] [address]ls[address]iexl[address] [place], [place] [address]Dr. Ivette Hernandez Monocytes/100 WBC (Bld) 6.8 % Normal 1.7-12.0 [facility] Comment on above: Performed By: #### C BC ####[facility] [address]uzn[address] [place], [place] [address]Dr. Ivette Hernandez NEUT # 7.4 103/ul Critically high 1.4-6.5 [facility] Comment on above: Performed By: #### C BC ####[facility] [address] [place] [address]Dr. Ivette Hernandez Neutrophils/100 WBC (Bld) 85.1 % Critically high 43.0-75.0 [facility] Comment on above: Performed By: #### C BC ####[facility] [address]rbgxb[address] [place], [place] [address]Dr. Ivette Hernandez Platelet mean volume (Bld) [Entitic vol] 9.5 fL Normal 9.5-13.5 [facility] Comment on above: Performed By: #### C BC ####[facility] [address] [place] [address]Dr. Ivette Hernandez PLT 227 103/ul Normal 150-450 [facility] Comment on above: Performed By: #### C BC ####[facility] Awr[address]cyvev[address] [place], [place] [address]Dr. Ivette David RBC 2.81 106/ul Critically low 4.20-5.40 [facility] Comment on above: Performed By: #### C BC ####[facility] [address]na[address] [place], [place] [address]Dr. Ivette Hernandez WBC 8.7 103/ul Normal 4.0-11.0 [facility] Comment on above: Performed By: #### C BC ####[facility] [address]szsi[address] [place], [place] [address]Dr. Ivette David BASO # 0.0 103/ul Normal 0.0-0.1 [facility] Comment on above: Performed By: #### C BC ####[facility] Ol[address]ebezi[address] [place], [place] [address]Dr. Ivette Hernandez Basophils/100 WBC (Bld) 0.0 % Critically low 0.2-2.0 [facility] Comment on above: Performed By: #### C BC ####[facility] [address]zvh[address] [place], [place] [address]Dr. Ivette David EO # 0.0 103/ul Normal 0.0-0.7 [facility] [facility] Comment on above: Performed By: #### C BC ####[facility] Welvonurxh[address] [place], [place] [address]Dr. Ivette Hernandez Eosinophils/100 WBC (Bld) 0.0 % Critically low 0.9-7.0 [facility] Comment on above: Performed By: #### C BC ####[facility] [address]sdar[address] [place] [address]Dr. Ivette Hernandez Erythrocyte distribution width (RBC) [Ratio] 13.1 % Normal 11.0-15.0 [facility] Comment on above: Performed By: #### C BC ####[facility] [address]zvft[address] [place], [place] [address]Dr. Ivette Hernandez Hematocrit (Bld) [Volume fraction] 25.9 % Critically low 36.0-48.0 [facility] Comment on above: Performed By: #### C BC ####[facility] Ltxlwyzkic[address] [place], [place] [address]Dr. Ivette Hernandez Hemoglobin (Bld) [Mass/Vol] 8.0 g/dL Critically low 12.0-16.0 [facility] Comment on above: Performed By: #### C BC ####[facility] T[address]vsft[address] [place], [place] [address]Dr. Ivette Hernandez IG # 0.06 10e3/ul Critically high 0.00-0.[address] [facility] Comment on above: Performed By: #### C BC ####[facility] Wgdvsbhfoa[address] [place], [place] [address]Dr. Ivette Hernandez IG % 1.1 % Critically high 0.0-0.5 The [facility] Comment on above: Performed By: #### C BC ####[facility] [address]re[address]be[address] [place] [address]Dr. Ivette Hernandez LYMPH # 0.8 103/ul Critically low 1.2-3.8 The [facility] Comment on above: Performed By: #### C BC ####[facility] Eqhspqexcd[address] [place], [place] [address]Dr. Ivette Hernandez Lymphocytes/100 WBC (Bld) 14.8 % Critically low 20.5-60.0 [facility] Comment on above: Performed By: #### C BC ####[facility] Ytacmq[address]xb[address] [place] [address]Dr. Ivette David MANUAL DIFF REQ NO Normal [facility] Comment on above: Performed By: #### C BC ####[facility] [address]ls[address] [place] [address]Dr. Ivette Hernandez MCH (RBC) [Entitic mass] 29.7 pg Normal 26.7-34.0 [facility] Comment on above: Performed By: #### C BC ####[facility] Szks[address] [place] [address]Dr. Ivette David MCHC (RBC) [Mass/Vol] 30.9 g/dL Normal 29.9-35.2 [facility] Comment on above: Performed By: #### C BC ####[facility] Clqrkwbljc[address] [place] [address]Dr. Cherjun Hernandez MCV (RBC) [Entitic vol] 96.3 fL Normal 81.0-99.0 [facility] Comment on above: Performed By: #### C BC ####[facility] Wegurrwpvk[address] [place], [place] [address]Dr. Ivette David MONO # 0.1 103/ul Critically low 0.3-0.8 The [facility] Comment on above: Performed By: #### C BC ####[facility] [address]lvcxoe[address] [place] [address]Dr. Ivette Hernandez Monocytes/100 WBC (Bld) 2.0 % Normal 1.7-12.0 [facility] Comment on above: Performed By: #### C BC ####[facility] Qkqainraol[address] [place] [address]Dr. Ivette Hernandez NEUT # 4.5 103/ul Normal 1.4-6.5 [facility] Comment on above: Performed By: #### C BC ####[facility] [address]izbbiiyqn[address] [place], [place] [address]Dr. Ivette Hernandez Neutrophils/100 WBC (Bld) 82.1 % Critically high 43.0-75.0 [facility] Comment on above: Performed By: #### C BC ####[facility] E[address]vniuycf[address] [place] [address]Dr. Ivette Hernandez Platelet mean volume (Bld) [Entitic vol] 9.4 fL Critically low 9.5-13.5 [facility] Comment on above: Performed By: #### C BC ####[facility] [address]qpsosaxj[address] [place] [address]Dr. Ivette Hernandez PLT 224 103/ul Normal 150-450 [facility] Comment on above: Performed By: #### C BC ####[facility] Jaczfvqheo8[address] [place] [address]Dr. Ivette Hernandez RBC 2.69 106/ul Critically low 4.20-5.40 [facility] Comment on above: Performed By: #### C BC ####[facility] Tuaimmnpii16[address] [place] [address]Dr. Ivette Hernandez WBC 5.5 103/ul Normal 4.0-11.0 [facility] Comment on above: Performed By: #### C BC ####[facility] Vyltxyrsmm[address] [place] [address]Dr. Ivette Hernandez CULTURE SPUTUMon 09-07-2022 CULTURE SPUTUM Isolate 1 Carolee albicans Moderate growth of Normal [facility] Comment on above: Performed By: #### S PUTCX ####[facility] Guqtnezmpo19[address] [place] [address]Dr. Ivette Hernandez ECHOCARDIO M/2D COMPLETEon 0 09-07-2022 ECHOCARDIO M/2D COMPLETE Normal [facility] PRBC LEUKOREDUCEDon 09-08-19 23 PRBC LEUKOREDUCED Normal [facility] Comment on above: Performed By: #### P RBC ####[facility] Ulfbfwzmdm112[address] [place] [address]DrJesse Hernandez PROF 14(COMP METB)on 023 Albumin [Mass/Vol] 2.4 g/dL Critically low 3.4-5.0 Th e [facility] Comment on above: Performed By: #### C MP, BNP ####[facility] G[address]qymzidw[address] [place], [place] [address]DrJesse Hernandez Albumin/Globulin [Mass ratio] 0.5 {ratio} Normal [facility] Comment on above: Performed By: #### C MP, BNP ####[facility] Fysxlyzoec[address] [place] [address]Dr. Ivette David ALP [Catalytic activity/Vol] 75 U/L Normal 46-116 [facility] Comment on above: Performed By: #### C MP, BNP ####[facility] Lxgcrubexw93[address] [place] [address]Dr. Ivette Hernandez ALT [Catalytic activity/Vol] 17 U/L Normal 14-59 [facility] Comment on above: Performed By: #### C MP, BNP ####[facility] Nqjskcfact[address] [place], [place] [address]Dr. Ivette Hernandez Anion gap [Moles/Vol] 11.3 mmol/L Normal [facility] Comment on above: Performed By: #### C MP, BNP ####[facility] Mutwnxsnre[address] [place], [place] [address]Dr. Ivette Hernandez AST [Catalytic activity/Vol] 15 U/L Normal 15-37 [facility] Comment on above: Performed By: #### C MP, BNP ####[facility] Nomyccusei2[address] [place], [place] [address]Dr. Ivette Hernandez Bilirubin [Mass/Vol] 0.3 mg/dL Normal 0.2-1.0 [facility] Comment on above: Performed By: #### C MP, BNP ####[facility] Fqnnqklxdy[address] [place], [place] [address]Dr. Ivette Hernandez Calcium [Mass/Vol] 7.9 mg/dL Critically low 8.5-10.1 [facility] Comment on above: Performed By: #### C MP, BNP ####[facility] Hottyalhbf[address] [place], [place] [address]Dr. Ivette Hernandez Chloride [Moles/Vol] 104 mmol/L Normal 98-107 [facility] Comment on above: Performed By: #### C MP, BNP ####[facility] Zvmqppxobt[address] [place] [address]Dr. Ivette Hernandez CO2 [Moles/Vol] 33.3 mmol/L Critically high 21.0-32.0 [facility] Comment on above: Performed By: #### C MP, BNP ####[facility] Bwsdimnxzd[address] [place], [place] [address]Dr. Ivette Hernandez Creatinine [Mass/Vol] 1.68 mg/dL Critically high 0.55-1.02 [facility] Comment on above: Performed By: #### C MP, BNP ####[facility] Dyecqknggr[address] [place], [place] [address]Dr. Ivette Hernandez EGFR-AF [place]LANDER 36 mL/min/1.73m2 Critically low >=60 [facility] Comment on above: Performed By: #### C MP, BNP ####[facility] Yallpcgwac[address] [place] [address]Dr. Ivette David EGFR-NON AF [place] 30 mL/min/1.73m2 Critically low >=60 [facility] Comment on above: Performed By: #### C MP, BNP ####[facility] Vlxaitzqbe[address] [place] [address]Dr. Ivette David Globulin (S) [Mass/Vol] 4.5 g/dL Normal [facility] Comment on above: Performed By: #### C MP, BNP ####[facility] K[address]lhatqhu[address] [place], [place] [address]Dr. Ivette Hernandez Glucose [Mass/Vol] 203 mg/dL Critically high 74-106 [facility] Comment on above: Performed By: #### C MP, BNP ####[facility] Royqnjrwef[address] [place], [place] [address]Dr. Ivette David Potassium [Moles/Vol] 4.6 mmol/L Normal 3.5-5.1 [facility] Comment on above: Performed By: #### C MP, BNP ####[facility] Jkbtrfrouf7[address] [place] [address]Dr. Ivette Hernandez Protein [Mass/Vol] 6.9 g/dL Normal 6.4-8.2 [facility] Comment on above: Performed By: #### C MP, BNP ####[facility] Deidefbyeg[address] [place] [address]Dr. Cherjun Hernandez Sodium [Moles/Vol] 144 mmol/L Normal 136-145 [facility] Comment on above: Performed By: #### C MP, BNP ####[facility] Cjmnjngcno[address] [place] [address]Dr. Cherjun Hernandez Urea nitrogen [Mass/Vol] 33.0 mg/dL Critically high 7.0-18.0 [facility] Comment on above: Performed By: #### C MP, BNP ####[facility] Cifugoehte[address] [place] [address]Dr. Ivette Hernandez Urea nitrogen/Creatinine [Mass ratio] 19.6 mg/mg Normal [facility] Comment on above: Performed By: #### C MP, BNP ####[facility] Rdrasvtpds[address] [place], [place] [address]Dr. Ivette Hernandez SPUTUM GRAM STAINon 09-08-19 COMMENTS Normal [facility] Comment on above: Performed By: #### S PUTGS ####[facility] R[address]zoetnsth[address] [place], [place] [address]Dr. Ivette Hernandez DIPHTHEROIDS Normal [facility] Comment on above: Performed By: #### S PUTGS ####[facility] Qhfffruaij[address] [place], [place] [address]Dr. Ivette Hernandez EPITHELIALS <25 Normal [facility] Comment on above: Performed By: #### S PUTGS ####[facility] Siwdwezrlg[address] [place], [place] [address]Dr. Ivette Hernandez FUNGAL ELEMENTS FEW Normal [facility] Comment on above: Performed By: #### S PUTGS ####[facility] Qggglqlyjo4[address] [place] [address]Dr. Ivette Hernandez GRAM NEG BACILLI Normal [facility] Comment on above: Performed By: #### S PUTGS ####[facility] Cfhxushmdy[address] [place], [place] [address]Dr. Ivette Hernandez GRAM NEG DIPPLOCOCCI Normal [facility] Comment on above: Performed By: #### S PUTGS ####[facility] Lclmbgzqcc58[address] [place] [address]Dr. Ivette Hernandez GRAM POS BACILLI Normal [facility] Comment on above: Performed By: #### S PUTGS ####[facility] Cjrsxpldrr[address] [place] [address]Dr. Ivette Hernandez GRAM POSITIVE COCCI Normal [facility] [place] Comment on above: Performed By: #### S PUTGS ####[facility] Wcizeuekpc0668 [place] [address]Dr. Ivette Hernandez WBC (Bld) [#/Vol] 10*3/uL Normal [facility] Comment on above: Performed By: #### S PUTGS ####[facility] Nyyltxgonw[address] [place], [place] [address]Dr. Ivette Hernandez TYPE AND SCREENon 09-07-2022 TYPE AND SCREEN Negative Normal [facility] Comment on above: Performed By: #### T NS ####[facility] Mgcvzatcal[address] [place], [place] [address]Dr. Ivette Hernandez BNPon 09-06-2022 Natriuretic peptide B (Bld) [Mass/Vol] 00023.0 pg/mL Critically high <=900.0 [facility] Comment on above: Performed By: #### B FULL STACK SOFTWARE DEVELOPER, HSTROPN, LIPA, CMP ####[facility] [address]emczmmdn[address] [place] [address]Dr. Ivette Hernandez CARDIAC CANDACE ADMITon 023 CK [Catalytic activity/Vol] 73 U/L Normal 26-192 [facility] Comment on above: Performed By: #### C MADM, MG ####[facility] G[address]tywlfodz6[address] [place] [address]Dr. Cherjun Hernandez CK.MB [Mass/Vol] 1.68 ng/mL Normal <=3.60 [facility] Comment on above: Performed By: #### C MADM, MG ####[facility] Auoubczajd[address] [place], [place] [address]Dr. Ivette David HSTROP 14.7 pg/mL Normal 4.0-51.3 [facility] Comment on above: Result Comment: CUT- OFF POINTS HAVE BEEN ESTABLISHED BASED ON THE FOURTH UNIVERSAL DEFINITIONS OF MYOCARDIALINFARCTION. THE UPPER REFERENCE LIMIT (URL) OF TROPONIN, DEFINED THE 99TH PERCENTILE OFcTnI DISTRIBUTION IN A REFERENCE POPULATION, HAS BEEN CONFIRMED THE DECISION THRESHOLDFOR OR DIAGNOSIS. Performed By: #### C RODDY, MG ####[facility] Shah[address]vam[address] [place] [address]Dr. Cherjun Hernandez CARMITA 151 ng/mL Critically high 9-82 [facility] Comment on above: Performed By: #### C RODDY, MG ####[facility] Kmpblemvju2144 [place] [address]Dr. Cherjun Hernandez CBC AUTO DIFFon 09-06-2022 BASO # 0.0 103/ul Normal 0.0-0.1 [facility] Comment on above: Performed By: #### C BC ####[facility] [address]rdbmxxxkk[address] [place], [place] [address]Dr. Ivette Hernandez Basophils/100 WBC (Bld) 0.4 % Normal 0.2-2.0 [facility] Comment on above: Performed By: #### C BC ####[facility] Kixwdfvwvm[address] [place], [place] [address]Dr. Cherjun Hernandez EO # 0.1 103/ul Normal 0.0-0.7 [facility] Comment on above: Performed By: #### C BC ####[facility] [address]esqfddo[address] [place], [place] [address]Dr. Ivette Hernandez Eosinophils/100 WBC (Bld) 1.5 % Normal 0.9-7.0 [facility] Comment on above: Performed By: #### C BC ####[facility] Gnhkkcyalc[address] [place], [place] [address]Dr. Ivette Hernandez Erythrocyte distribution width (RBC) [Ratio] 13.1 % Normal 11.0-15.0 [facility] Comment on above: Performed By: #### C BC ####[facility] Jibetwpakx[address] [place], [place] [address]Dr. Ivette Hernandez Hematocrit (Bld) [Volume fraction] 26.8 % Critically low 36.0-48.0 [facility] Comment on above: Performed By: #### C BC ####[facility] Tkygpalcsk2499 [place] [address]Dr. Ivette Hernandez Hemoglobin (Bld) [Mass/Vol] 8.4 g/dL Critically low 12.0-16.0 [facility] Comment on above: Performed By: #### C BC ####[facility] Pnlxvhdsdd1307 [place] [address]Dr. Ivette Hernandez IG # 0.05 10e3/ul Critically high 0.00-0.03 [facility] Comment on above: Performed By: #### C BC ####[facility] Zwmxbvgxfj4104 [place] [address]Dr. Ivette Hernandez IG % 0.5 % Normal 0.0-0.5 [facility] Comment on above: Performed By: #### C BC ####[facility] Wjznswsxrs[address] [place], [place] [address]Dr. Ivette Hernandez LYMPH # 1.6 103/ul Normal 1.2-3.8 [facility] Comment on above: Performed By: #### C BC ####[facility] Jhbezznwru4365 [place] [address]Dr. Ivette Hernandez Lymphocytes/100 WBC (Bld) 17.1 % Critically low 20.5-60.0 [facility] Comment on above: Performed By: #### C BC ####[facility] Agzbeohwhv5[address] [place] [address]Dr. Ivette Hernandez MANUAL DIFF REQ NO Normal [facility] Comment on above: Performed By: #### C BC ####[facility] [address]nr[address] [place], [place] [address]Dr. Ivette Hernandez MCH (RBC) [Entitic mass] 30.1 pg Normal 26.7-34.0 [facility] Comment on above: Performed By: #### C BC ####[facility] [address]jbbazp[address] [place], [place] [address]Dr. Ivette Hernandez MCHC (RBC) [Mass/Vol] 31.3 g/dL Normal 29.9-35.2 [facility] Comment on above: Performed By: #### C BC ####[facility] Lwcytjfmrd1739 [place] [address]Dr. Ivette Hernandez MCV (RBC) [Entitic vol] 96.1 fL Normal 81.0-99.0 [facility] Comment on above: Performed By: #### C BC ####[facility] Jzpllglncr1716 [place] [address]Dr. Ivette Hernandez MONO # 0.5 103/ul Normal 0.3-0.8 [facility] Comment on above: Performed By: #### C BC ####[facility] Touwvruseu[address] [place] [address]Dr. Ivette David Monocytes/100 WBC (Bld) 5.3 % Normal 1.7-12.0 [facility] Comment on above: Performed By: #### C BC ####[facility] Rcfoxnzvjz[address] [place], [place] [address]Dr. Ivette Hernandez NEUT # 7.0 103/ul Critically high 1.4-6.5 [facility] Comment on above: Performed By: #### C BC ####[facility] [address]tkisymro[address] [place], [place] [address]Dr. Ivette Hernandez Neutrophils/100 WBC (Bld) 75.2 % Critically high 43.0-75.0 [facility] Comment on above: Performed By: #### C BC ####[facility] Zwrwviiufv[address] [place], [place] [address]Dr. Ivette Hernandez Platelet mean volume (Bld) [Entitic vol] 9.5 fL Normal 9.5-13.5 [facility] Comment on above: Performed By: #### C BC ####[facility] [address]zpxkpurct[address] [place] [address]Dr. Ivette David PLT 257 103/ul Normal 150-450 [facility] Comment on above: Performed By: #### C BC ####[facility] [address]mg[address] [place], [place] [address]Dr. Ivette Hernandez RBC 2.79 106/ul Critically low 4.20-5.40 [facility] Comment on above: Performed By: #### C BC ####[facility] Nhabpqpsnm1223 [place] [address]Dr. Ivette Hernandez WBC 9.3 103/ul Normal 4.0-11.0 [facility] Comment on above: Performed By: #### C BC ####[facility] [address] [place], [place] [address]Rn. Ivette Hernandez CULTURE BLOODon 09-06-2022 Microscopic examination of blood, culture Culture Observations: NO GROWTH AT 5 DAYS. Normal [facility] Comment on above: Performed By: #### B LDCX2 ####[facility] W[address]ukyjthsp[address] [place] [address]Dr. Ivette Hernandez Microscopic examination of blood, culture Culture Observations: NO GROWTH AT 5 DAYS. Normal [facility] Comment on above: Performed By: #### B LDCX1 ####[facility] [address]vzpiwdusy7[address] [place] [address]Dr. Ivette Hernandez CULTURE URINEon 09-06-2022 CULTURE URINE Culture Observations : LIGHT GROWTH OF MIXED GENITAL BOB. NO POTENTIAL PATHOGENS SEEN. Normal [facility] Comment on above: Performed By: #### U RCX ####[facility] Xxwcxplall90[address] [place] [address]Dr. Ivette Hernandez Covid-19 PCR (CVDTB)on SARS-CoV-2 (COVID-19) RNA MARRY+probe Ql (Unsp spec) Not detected Normal NOT DETECTED [facility] Comment on above: Result Comment: This test is not yet approved or cleared by the [place] FDA. When there are no FDA-approved or cleared tests available, and other criteria are met, FDA can make tests available under an emergency access mechanism called an Emergency Use Authorization (EUA). The EUA for this test is supported by the [employer] of Health and Human Service's (HHS's) declaration [...] with SARS-CoV-2. Performed By: #### C VDTBH ####[facility] Dhkdtxrouc14[address] [place] [address]Dr. Ivette Hernandez LACTATE/LACTIC ACIDon 2022 Lactate [Moles/Vol] 0.6 mmol/L Normal 0.4-2.0 [facility] [place] Comment on above: Performed By: #### L ACT ####[facility] [address]rw[address]vo[address] [place], [place] [address]Dr. Ivette Hernandez Lactate [Moles/Vol] 0.8 mmol/L Normal 0.4-2.0 [facility] [place] Comment on above: Performed By: #### L ACT ####[facility] [address]osv[address] [place], [place] [address]Dr. Ivette Hernandez LIPASEon 09-06-2022 Lipase [Catalytic activity/Vol] 157.0 U/L Normal 73.0-393.0 [facility] Comment on above: Performed By: #### B FULL STACK SOFTWARE DEVELOPER, HSTROPN, LIPA, CMP ####[facility] [address]niqatuh[address] [place] [address]Dr. Ivette Hernandez MAGNESIUMon 09-06-2022 Magnesium [Mass/Vol] 1.6 mg/dL Critically low 1.8-2.4 [facility] Comment on above: Performed By: #### C MADM, MG ####[facility] [address]qfoz[address] [place] [address]Dr. Ivette Hernandez PROF 14(COMP METB)on 023 Albumin [Mass/Vol] 2.5 g/dL Critically low 3.4-5.0 Th e [facility] Comment on above: Performed By: #### B FULL STACK SOFTWARE DEVELOPER, HSTROPN, LIPA, CMP ####[facility] [address]st[address] [place], [place] [address]Dr. Ivette Hernandez Albumin/Globulin [Mass ratio] 0.5 {ratio} Normal [facility] Comment on above: Performed By: #### B FULL STACK SOFTWARE DEVELOPER, HSTROPN, LIPA, CMP ####[facility] T[address]roafr[address] [place] [address]Dr. Ivette Hernandez ALP [Catalytic activity/Vol] 85 U/L Normal 46-116 [facility] Comment on above: Performed By: #### B FULL STACK SOFTWARE DEVELOPER, HSTROPN, LIPA, CMP ####[facility] Lxnwypsrxh6[address] [place] [address]Dr. Ivette Hernandez ALT [Catalytic activity/Vol] 18 U/L Normal 14-59 [facility] Comment on above: Performed By: #### B FULL STACK SOFTWARE DEVELOPER, HSTROPN, LIPA, CMP ####[facility] Zktltpwthq[address] [place], [place] [address]Dr. Ivette Hernandez Anion gap [Moles/Vol] 9.1 mmol/L Normal [facility] Comment on above: Performed By: #### B FULL STACK SOFTWARE DEVELOPER, HSTROPN, LIPA, CMP ####[facility] Fkgablkgpt[address] [place], [place] [address]Dr. Ivette Hernandez AST [Catalytic activity/Vol] 18 U/L Normal 15-37 [facility] Comment on above: Performed By: #### B FULL STACK SOFTWARE DEVELOPER, HSTROPN, LIPA, CMP ####[facility] Wojqvdtbvf4[address] [place] [address]Dr. Ivette Hernandez Bilirubin [Mass/Vol] 0.5 mg/dL Normal 0.2-1.0 [facility] Comment on above: Performed By: #### B FULL STACK SOFTWARE DEVELOPER, HSTROPN, LIPA, CMP ####[facility] Nssyickrdj[address] [place] [address]Dr. Ivette Hernandez Calcium [Mass/Vol] 7.8 mg/dL Critically low 8.5-10.1 Th [facility] Comment on above: Performed By: #### B FULL STACK SOFTWARE DEVELOPER, HSTROPN, LIPA, CMP ####[facility] Ticcfilyop[address] [place] [address]Dr. Ivette Hernandez Chloride [Moles/Vol] 103 mmol/L Normal 98-107 [facility] Comment on above: Performed By: #### B FULL STACK SOFTWARE DEVELOPER, HSTROPN, LIPA, CMP ####[facility] Zcehycfytc16[address] [place] [address]Dr. Ivette Hernandez CO2 [Moles/Vol] 32.8 mmol/L Critically high 21.0-32.0 [facility] Comment on above: Performed By: #### B FULL STACK SOFTWARE DEVELOPER, HSTROPN, LIPA, CMP ####[facility] Wayfsqaxma[address] [place], [place] [address]Dr. Ivette Hernandez Creatinine [Mass/Vol] 1.79 mg/dL Critically high 0.55-1.02 [facility] Comment on above: Performed By: #### B FULL STACK SOFTWARE DEVELOPER, HSTROPN, LIPA, CMP ####[facility] [address]yfekaidaf[address] [place], [place] [address]Dr. Ivette Hernandez EGFR-AF [place] 34 mL/min/1.73m2 Critically low >=60 [facility] Comment on above: Performed By: #### B FULL STACK SOFTWARE DEVELOPER, HSTROPN, LIPA, CMP ####[facility] Obpguseekc[address] [place], [place] [address]Dr. Ivette Hernandez EGFR-NON AF [place] 28 mL/min/1.73m2 Critically low >=60 [facility] Comment on above: Performed By: #### B FULL STACK SOFTWARE DEVELOPER, HSTROPN, LIPA, CMP ####[facility] W[address]xhzmwcq[address] [place], [place] [address]Dr. Ivette Hernandez Globulin (S) [Mass/Vol] 4.6 g/dL Normal [facility] Comment on above: Performed By: #### B FULL STACK SOFTWARE DEVELOPER, HSTROPN, LIPA, CMP ####[facility] Szvzgfrosa[address] [place], [place] [address]Dr. Ivette Hernandez Glucose [Mass/Vol] 170 mg/dL Critically high 74-106 T [facility] Comment on above: Performed By: #### B FULL STACK SOFTWARE DEVELOPER, HSTROPN, LIPA, CMP ####[facility] Yl[address]wujdvp[address] [place], [place] [address]Dr. Ivette Hernandez Potassium [Moles/Vol] 3.9 mmol/L Normal 3.5-5.1 [facility] Comment on above: Performed By: #### B FULL STACK SOFTWARE DEVELOPER, HSTROPN, LIPA, CMP ####[facility] Vnclrolnyk16[address] [place] [address]Dr. Cherjun Hernandez Protein [Mass/Vol] 7.1 g/dL Normal 6.4-8.2 [facility] Comment on above: Performed By: #### B FULL STACK SOFTWARE DEVELOPER, HSTROPN, LIPA, CMP ####[facility] Nplfjfhfah[address] [place] [address]Dr. Cherujn Hernandez Sodium [Moles/Vol] 141 mmol/L Normal 136-145 [facility] Comment on above: Performed By: #### B FULL STACK SOFTWARE DEVELOPER, HSTROPN, LIPA, CMP ####[facility] Xtmymdmboe8735 [place] [address]Dr. Ivette Hernandez Urea nitrogen [Mass/Vol] 31.0 mg/dL Critically high 7.0-18.0 [facility] Comment on above: Performed By: #### B FULL STACK SOFTWARE DEVELOPER, HSTROPN, LIPA, CMP ####[facility] Ymqtaexsst8[address] [place] [address]Dr. Ivette Hernandez Urea nitrogen/Creatinine [Mass ratio] 17.3 mg/mg Normal [facility] Comment on above: Performed By: #### B FULL STACK SOFTWARE DEVELOPER, HSTROPN, LIPA, CMP ####[facility] Vvueoedqgz6[address] [place] [address]Dr. Ivette Hernandez PROTIMEon 09-06-2022 INR Coag (PPP) [Relative time] 1.13 {INR} Normal [facility] Comment on above: Performed By: #### P TT, PT ####[facility] Wuboalmdim[address] [place] [address]Dr. Ivette Hernandez INR GUIDELINES SEE BELOW Normal The [facility] Comment on above: Result Comment: MELANIE RED INR: 2.0 - 3.0 CONDITIONS NOT LISTED BELOW 2.5 - 3.5 FOR PROSTHETIC HEART VALVE REPLACEMENT 2.5 - 3.5 RECURRENT THROMBOSIS Performed By: #### P TT, PT ####[facility] [address]tsx[address] [place], [place] [address]Dr. Ivette Hernandez PT Coag (PPP) [Time] 11.9 s Critically high 9.0-11.6 [facility] Comment on above: Performed By: #### P TT, PT ####[facility] [address] [place], [place] [address]Vm. Ivette Hernandez PTTon 09-06-2022 aPTT Coag (Bld) [Time] 29.6 s Normal 22.3-36.2 [facility] Comment on above: Performed By: #### P TT, PT ####[facility] [address]ffi[address] [place] [address]Dr. Ivette Hernandez SYMPTOMATIC COVID-19 ANTIGEN on 09-06-2022 EUA Statement SEE BELOW Normal The [facility] Comment on [...] revoked sooner. Performed By: #### C VDAGS ####[facility] Xdzpetuzyj[address] [place] [address]Dr. Ivette Hernandez SARS-CoV-2 (COVID-19) RNA MARRY+probe Ql (Unsp spec) Negative Normal NEGATIVE [facility] Comment on above: Performed By: #### C VDAGS ####[facility] Mjgmxvplsh[address] [place] [address]Dr. Ivette Hernandez TROPONIN, HIGH SENSITIVITYon 09-06-2022 HSTROP 13.1 pg/mL Normal 4.0-51.3 [facility] Comment on above: Result Comment: CUT- OFF POINTS HAVE BEEN ESTABLISHED BASED ON THE FOURTH UNIVERSAL DEFINITIONS OF MYOCARDIALINFARCTION. THE UPPER REFERENCE LIMIT (URL) OF TROPONIN, DEFINED THE 99TH PERCENTILE OFcTnI DISTRIBUTION IN A REFERENCE POPULATION, HAS BEEN CONFIRMED THE DECISION THRESHOLDFOR OR DIAGNOSIS. Performed By: #### B FULL STACK SOFTWARE DEVELOPER, HSTROPN, LIPA, CMP ####[facility] Llzyxfaown[address] [place] [address]Dr. Ivette Hernandez UA RANDOM W/MICROSCOPICon BACTERIA SMALL Abnormal NONE SEEN [facility] Comment on above: Performed By: #### U AMIC ####[facility] [address]mpjv[address] [place], [place] [address]Dr. Ivette Hernandez Bilirubin Ql (U) Negative Normal NEGATIVE [facility] Comment on above: Performed By: #### U AMIC ####[facility] [address]mxnd[address] [place], [place] [address]Dr. Ivette Hernandez CAST NONE SEEN Normal NONE SEEN [facility] Comment on above: Performed By: #### U AMIC ####[facility] Pnc[address]lcdm[address] [place], [place] [address]Dr. Ivette Hernandez Clarity (U) CLEAR Normal CLEAR [facility] Comment on above: Performed By: #### U AMIC ####[facility] Kn[address]vqejgld[address] [place], [place] [address]Dr. Ivette Hernandez Color (U) LT. YELLOW Normal YELLOW [facility] Comment on above: Performed By: #### U AMIC ####[facility] [address]qiyxbm[address] [place], [place] [address]Dr. Ivette Hernandez Crystals LM Nom (Urine sed) NONE SEEN Normal NONE SEEN [facility] Comment on above: Performed By: #### U AMIC ####[facility] Kn[address]zrmbctq[address] [place], [place] [address]Dr. Ivette Hernandez Epithelial cells LM Ql (Urine sed) FEW Abnormal NONE SEEN /RARE [facility] Comment on above: Performed By: #### U AMIC ####[facility] Eplsfomqdu2[address] [place], [place] [address]Dr. Ivette Hernandez Glucose Ql (U) Negative Normal NEGATIVE [facility] Comment on above: Performed By: #### U AMIC ####[facility] Rvlbcingjd[address] [place], [place] [address]Dr. Ivette Hernandez Hemoglobin Ql (U) SMALL Abnormal NEGATIVE The [facility] Comment on above: Performed By: #### U AMIC ####[facility] Ejvmphatnm4[address] [place] [address]Dr. Ivette Hernandez Ketones Ql (U) Negative Normal NEGATIVE [facility] Comment on above: Performed By: #### U AMIC ####[facility] Xkmvhqmgid[address] [place], [place] [address]Dr. Ivette Hernandez LEUKOCYTES TRACE Abnormal NEGATIVE [facility] Comment on above: Performed By: #### U AMIC ####[facility] Mfxwmonymg[address] [place], [place] [address]Dr. Ivette Hernandez MUCOUS NONE SEEN Normal NONE SEEN [facility] Comment on above: Performed By: #### U AMIC ####[facility] Czvcresaht[address] [place], [place] [address]Dr. Ivette Hernandez Nitrite Ql (U) Negative Normal NEGATIVE [facility] Comment on above: Performed By: #### U AMIC ####[facility] C[address]ctowiew[address] [place], [place] [address]Dr. Ivette Hernandez pH (U) 7.5 [pH] Normal 5-9 [facility] Comment on above: Performed By: #### U AMIC ####[facility] [address]ftfcxha[address] [place], [place] [address]Dr. Ivette Hernandez RBC 0-2 Normal 0-2 [facility] Comment on above: Performed By: #### U AMIC ####[facility] Dcvqlvnlqj[address] [place], [place] [address]Dr. Ivette Hernandez SPEC GRAVITY 1.020 Normal 1.005-<=1.0 25 [facility] Comment on above: Performed By: #### U AMIC ####[facility] X[address]bcgxkgcf[address] [place], [place] [address]Dr. Ivette Hernandez UA PROTEIN 300 mg/dl Abnormal NEGATIVE/ TRACE [facility] Comment on above: Performed By: #### U AMIC ####[facility] Aanzwbgjrz[address]674 [place] [address]Dr. Ivette Hernandez Urobilinogen Qn (U) 0.2 {Mack'U}/dL Normal 0.2 - 1. 0 [facility] Comment on above: Performed By: #### U AMIC ####[facility] Iliqzltlzb47[address] [place] [address]Dr. Ivette Hernandez WBC 5-10 Abnormal NONE SEEN [facility] Comment on above: Performed By: #### U AMIC ####[facility] Engpyquizg2564 [place] [address]Dr. Ivette Hernandez XR CHEST 1 Von 09-06-2022 XR CHEST 1 V Normal [facility] PROF CHEM 8 (BAS METB)on Anion gap [Moles/Vol] 12.3 mmol/L Normal [facility] Comment on above: Performed By: #### B MP ####[facility] Tkpntvgkfv[address] [place], [place] [address]Dr. Ivette Hernandez Calcium [Mass/Vol] 9.4 mg/dL Normal 8.5-10.1 [facility] Comment on above: Performed By: #### B MP ####[facility] Arvt[address]rjcn[address] [place], [place] [address]Dr. Ivette Hernandez Chloride [Moles/Vol] 105 mmol/L Normal 98-107 [facility] Comment on above: Performed By: #### B MP ####[facility] Imasgexsep15[address] [place], [place] [address]Dr. Ivette Hernandez CO2 [Moles/Vol] 30.2 mmol/L Normal 21.0-32.0 [facility] Comment on above: Performed By: #### B MP ####[facility] [address]fgegade[address] [place], [place] [address]Dr. Ivette Hernandez Creatinine [Mass/Vol] 2.66 mg/dL Critically high 0.55-1.02 [facility] Comment on above: Performed By: #### B MP ####[facility] Hbceysvegt[address] [place], [place] [address]Dr. Ivette Hernandez EGFR-AF [place] 21 mL/min/1.73m2 Critically low >=60 [facility] Comment on above: Performed By: #### B MP ####[facility] [address]uhmsws[address] [place] [address]Dr. Ivette David EGFR-NON AF [place] 18 mL/min/1.73m2 Critically low >=60 [facility] Comment on above: Performed By: #### B MP ####[facility] Uqxoamtcqa9[address] [place] [address]Dr. Ivette Hernandez Glucose [Mass/Vol] 126 mg/dL Critically high 74-106 T [facility] Comment on above: Performed By: #### B MP ####[facility] Jrpizsqvoh5359 [place] [address]Dr. Ivette Hernandez Potassium [Moles/Vol] 4.5 mmol/L Normal 3.5-5.1 [facility] Comment on above: Performed By: #### B MP ####[facility] Tgonostqqb9470 [place] [address]Dr. Ivette Hernandez Sodium [Moles/Vol] 143 mmol/L Normal 136-145 [facility] Comment on above: Performed By: #### B MP ####[facility] Jkobrpfudn28[address] [place] [address]Dr. Ivette Hernandez Urea nitrogen [Mass/Vol] 55.0 mg/dL Critically high 7.0-18.0 [facility] Comment on above: Performed By: #### B MP ####[facility] Ckgpsyihpw7187 [place] [address]Dr. Ivette Hernandez Urea nitrogen/Creatinine [Mass ratio] 20.7 mg/mg Normal [facility] Comment on above: Performed By: #### B MP ####[facility] Yjbguezkwu[address] [place], [place] [address]Dr. Ivette Hernandez Office Visiton 07-06-2022 Follow-up visit [id number] Maria G Hagen 1950 F Date Provider Department Center 07/06/2022 [facility] Family History Problem Relation Age of Onset Stroke Mother Hypertension Mother Heart attack Father Hypertension Sister Heart attack Sister Heart attack Brother Family Status - Relation Status Age at Mother Father Sister Brother Level of Service:88912 [place] OFFICE/OUTPATIENT ESTABLISHED MOD MDM 30-39 MIN Reason for Visit and Comments: Congestive Heart Failure [127] Atrial Fibrillation [80] Normal [facility] METANEPHRINES PLASMA FREEon 06-24-2022 Metanephrine, Pl 16.5 pg/mL Normal 0.0-88.0 [facility] Comment on above: Performed By: #### M ETANPF ####[facility] Hbfdiddqhp7137 [place] [address]Dr. Ivette Hernandez Normetanephrine, Pl 67.2 pg/mL Normal 0.0-285.2 [facility] [place] Comment on above: Performed By: #### M ETANPF ####[facility] [address] [place], [place] [address]Dr. Ivette Hernandez ALDOSTERONE: RENIN RATIOon 0 06-20-2022 Aldos/Renin Ratio 12.0 Normal 0.0-30.0 [facility] Comment on above: Result Comment: Unit s: ng/dL per ng/mL/hr Performed By: #### A LDOREN ####[facility] Ic[address]rpkal[address] [place], [place] [address]Dr. hCerjun Hernandez Aldosterone 3.8 ng/dL Normal 0.0-30.0 [facility] Comment on above: Performed By: #### A LDOREN ####[facility] [address]lrave[address] [place], [place] [address]Dr. Cherjun Hernandez Renin Activity, Plasma 0.316 ng/mL/hr Normal 0.167-5.380 [facility] Comment on above: Performed By: #### A LDOREN ####[facility] [address]zwyzs[address] [place], [place] [address]Dr. Ivette Hernandez CORTISOLon 06-16-2022 Cortisol 2.7 ug/dL Normal [facility] Comment on above: Result Comment: Too isol AM 6.2 - 19.4 Cortisol PM 2.3 - 11.9 Performed By: #### C ORALO ####[facility] [address] [place], [place] [address]Al. Ivette Hernandez URINALYSISOrdered By: Iwona suárez on [...] PM) Normal Negative [facility] UA Auto SS [place].plasma/Lithiu m.RBC (Bld) [Mass ratio] 4-20 /HPF Normal [...] [facility] UA Auto SS Urobilinogen Qn (U) 0.2768327 {Mack'U}/dL Normal 0.0 - 1.0 EU/dL [facility] UA Auto SS WBC Auto Ql (U) 2+ *ABN* (06/10/22 12:20 PM) Invalid Interpretation Code Negative [facility] UA Auto SS WBC LM.HPF (Urine sed) [#/Area] /[HPF] Invalid Interpretation Code 0-5/HPF [facility] UA Auto SS CT ABD/PELV W CONon 05-06-19 CT ABD/PELV W CON Normal [facility] CREATININEon 05-05-2022 Creatinine [Mass/Vol] 1.49 mg/dL Critically high 0.55-1.02 [facility] Comment on above: Performed By: #### C BENITA ####[facility] Jhq[address]wxyhq[address] [place] [address]Dr. Ivette Hernandez EGFR-AF [place] 42 mL/min/1.73m2 Critically low >=60 [facility] Comment on above: Performed By: #### C BENITA ####[facility] [address]ism[address] [place], [place] [address]Dr. Ivette Hernandez EGFR-NON AF [place] 34 mL/min/1.73m2 Critically low >=60 [facility] Comment on above: Performed By: #### C BENITA ####[facility] [address]qrhomquiu[address] [place] [address]Dr. Ivette Hernandez PROF CHEM 8 (BAS METB)on Anion gap [Moles/Vol] 12.6 mmol/L Normal [facility] Comment on above: Performed By: #### B MP ####[facility] Rqdjdcxqbh2774 [place] [address]Dr. Ivette Hernandez Calcium [Mass/Vol] 8.0 mg/dL Critically low 8.5-10.1 [facility] Comment on above: Performed By: #### B MP ####[facility] Zlxdiswbcx85[address] [place] [address]Dr. Ivette Hernandez Chloride [Moles/Vol] 103 mmol/L Normal 98-107 [facility] Comment on above: Performed By: #### B MP ####[facility] [address]xbvkwtzgi86[address] [place] [address]Dr. Ivette Hernandez CO2 [Moles/Vol] 28.7 mmol/L Normal 21.0-32.0 [facility] Comment on above: Performed By: #### B MP ####[facility] Ztywgxdphi5399 [place] [address]Dr. Ivette Hernandez Creatinine [Mass/Vol] 1.54 mg/dL Critically high 0.55-1.02 [facility] Comment on above: Performed By: #### B MP ####[facility] Woemeggkjg[address] [place] [address]Dr. Ivette Hernandez EGFR-AF [place] 40 mL/min/1.73m2 Critically low >=60 [facility] Comment on above: Performed By: #### B MP ####[facility] Ecmibsingx[address] [place] [address]Dr. Ivette David EGFR-NON AF [place] 33 mL/min/1.73m2 Critically low >=60 [facility] Comment on above: Performed By: #### B MP ####[facility] Fcnnossjaq01[address] [place] [address]Dr. Ivette Hernandez Glucose [Mass/Vol] 126 mg/dL Critically high 74-[address] [facility] Comment on above: Performed By: #### B MP ####[facility] Xbcbkmkkri1481 [place] [address]Dr. Ivette Hernandez Potassium [Moles/Vol] 3.3 mmol/L Critically low 3.5-5.1 [facility] Comment on above: Performed By: #### B MP ####[facility] Kgbmpkgxvy0152 [place] [address]Dr. Ivette Hernandez Sodium [Moles/Vol] 141 mmol/L Normal 136-145 [facility] Comment on above: Performed By: #### B MP ####[facility] Cxxqlbyzfa[address] [place] [address]Dr. Ivette Hernandez Urea nitrogen [Mass/Vol] 21.0 mg/dL Critically high 7.0-18.0 [facility] Comment on above: Performed By: #### B MP ####[facility] Alxuwebjwo5720 [place] [address]Dr. Ivette Hernandez Urea nitrogen/Creatinine [Mass ratio] 13.6 mg/mg Normal [facility] Comment on above: Performed By: #### B MP ####[facility] [address] [place], [place] [address]Dr. Ivette Hernandez CBC AUTO DIFFon 04-13-2022 BASO # 0.0 103/ul Normal 0.0-0.1 [facility] Comment on above: Performed By: #### C BC ####[facility] [address] [place], [place] [address]Dr. Ivette David Basophils/100 WBC (Bld) 0.3 % Normal 0.2-2.0 [facility] Comment on above: Performed By: #### C BC ####[facility] [address]umeqovb[address] [place], [place] [address]Dr. Ivette Hernandez EO # 0.3 103/ul Normal 0.0-0.7 [facility] Comment on above: Performed By: #### C BC ####[facility] [address]hbtyugk[address] [place], [place] [address]Dr. Ivette Hernandez Eosinophils/100 WBC (Bld) 4.3 % Normal 0.9-7.0 [facility] Comment on above: Performed By: #### C BC ####[facility] Czylekln[address] [place], [place] [address]Dr. Ivette Hernandez Erythrocyte distribution width (RBC) [Ratio] 14.2 % Normal 11.0-15.0 [facility] Comment on above: Performed By: #### C BC ####[facility] Shltcldfha[address] [place], [place] [address]Dr. Ivette Hernandez Hematocrit (Bld) [Volume fraction] 26.2 % Critically low 36.0-48.0 [facility] Comment on above: Performed By: #### C BC ####[facility] Rcptkpoh[address] [place], [place] [address]Dr. Ivette Hernandez Hemoglobin (Bld) [Mass/Vol] 8.0 g/dL Critically low 12.0-16.0 [facility] Comment on above: Performed By: #### C BC ####[facility] Pvybnkvonj5[address] [place] [address]Dr. Ivette Hernandez IG # 0.03 10e3/ul Normal 0.00-0.03 [facility] Comment on above: Performed By: #### C BC ####[facility] Tkoafimqzf6[address] [place] [address]Dr. Ivette Hernandez IG % 0.5 % Normal 0.0-0.5 [facility] Comment on above: Performed By: #### C BC ####[facility] Vmrxvvyiug[address] [place] [address]Dr. Ivette Hernandez LYMPH # 2.2 103/ul Normal 1.2-3.8 [facility] Comment on above: Performed By: #### C BC ####[facility] Zpxgstqnet[address] [place] [address]Dr. Ivette Hernandez Lymphocytes/100 WBC (Bld) 35.5 % Normal 20.5-60.0 [facility] Comment on above: Performed By: #### C BC ####[facility] Gduhzkshik[address] [place] [address]Dr. Ivette Hernandez MANUAL DIFF REQ NO Normal [facility] Comment on above: Performed By: #### C BC ####[facility] Fqocsdwutp9110 [place] [address]Dr. Ivette Hernandez MCH (RBC) [Entitic mass] 28.0 pg Normal 26.7-34.0 [facility] Comment on above: Performed By: #### C BC ####[facility] Fmkxpibyse0811 [place] [address]Dr. Ivette Hernandez MCHC (RBC) [Mass/Vol] 30.5 g/dL Normal 29.9-35.2 [facility] Comment on above: Performed By: #### C BC ####[facility] Bkcsbxqawq7785 [place] [address]Dr. Ivette Hernandez MCV (RBC) [Entitic vol] 91.6 fL Normal 81.0-99.0 [facility] Comment on above: Performed By: #### C BC ####[facility] Smtzgrisyv6339 [place] [address]Dr. Ivette Hernandez MONO # 0.5 103/ul Normal 0.3-0.8 [facility] Comment on above: Performed By: #### C BC ####[facility] Nsozphwcpc4997 [place] [address]Dr. Ivette Hernandez Monocytes/100 WBC (Bld) 8.2 % Normal 1.7-12.0 [facility] Comment on above: Performed By: #### C BC ####[facility] Tqinzglqpr[address] [place] [address]Dr. Ivette Hernandez NEUT # 3.2 103/ul Normal 1.4-6.5 [facility] Comment on above: Performed By: #### C BC ####[facility] Whqdbvzmmn15[address] [place] [address]Dr. Ivette Hernandez Neutrophils/100 WBC (Bld) 51.2 % Normal 43.0-75.0 [facility] Comment on above: Performed By: #### C BC ####[facility] Mkfdizwvxv0169 [place] [address]Dr. Ivette Hernandez Platelet mean volume (Bld) [Entitic vol] 9.8 fL Normal 9.5-13.5 [facility] Comment on above: Performed By: #### C BC ####[facility] Akmquoibmi1261 [place] [address]Dr. Ivette Hernandez PLT 168 103/ul Normal 150-450 [facility] Comment on above: Performed By: #### C BC ####[facility] Asdklutvgu3051 [place] [address]Dr. Ivette Hernandez RBC 2.86 106/ul Critically low 4.20-5.40 [facility] Comment on above: Performed By: #### C BC ####[facility] Pceqercusk4062 [place] [address]Dr. Ivette Hernandez WBC 6.2 103/ul Normal 4.0-11.0 [facility] Comment on above: Performed By: #### C BC ####[facility] Eoienivzkd8[address] [place] [address]Dr. Ivette Hernandez Office Visiton 04-13-2022 Follow-up visit [id number] Maria G Hagen 1950 F Date Provider Department Center 04/13/2022 [facility] Family History Problem Relation Age of Onset Stroke Mother Hypertension Mother Heart attack Father Hypertension Sister Heart attack Sister Heart attack Brother Family Status - Relation Status Age at Mother Father Sister Brother Level of Service:24262 [place] OFFICE/OUTPATIENT ESTABLISHED MOD MDM 30-39 MIN Reason for Visit and Comments: Congestive Heart Failure [127] Atrial Fibrillation [80] Normal [facility] POINT OF CARE GLUCOSEon 04-02 Glucose [Mass/Vol] 140 mg/dL Critically high 74-106 [facility] Comment on above: Performed By: #### P OCGLUC ####[facility] Bzhzythouq[address] [place], [place] [address]Dr. Ivette Hernandez PROF CHEM 8 (BAS METB)on Anion gap [Moles/Vol] 7.9 mmol/L Normal [facility] Comment on above: Performed By: #### B MP ####[facility] Yxtekvhdpa7559 [place] [address]Dr. Ivette Hernandez Calcium [Mass/Vol] 7.9 mg/dL Critically low 8.5-10.1 [facility] Comment on above: Performed By: #### B MP ####[facility] Fhhxbfoudk5094 [place] [address]Dr. Ivette Hernandez Chloride [Moles/Vol] 106 mmol/L Normal 98-107 [facility] Comment on above: Performed By: #### B MP ####[facility] Rhatcrvoyk[address] [place], [place] [address]Dr. Ivette Hernandez CO2 [Moles/Vol] 32.0 mmol/L Normal 21.0-32.0 [facility] Comment on above: Performed By: #### B MP ####[facility] Vyfmutythc[address] [place], [place] [address]Dr. Ivette Hernandez Creatinine [Mass/Vol] 1.67 mg/dL Critically high 0.55-1.02 [facility] Comment on above: Performed By: #### B MP ####[facility] Dklmsjrzhh0386 [place] [address]Dr. Ivette Hernandez EGFR-AF [place] 36 mL/min/1.73m2 Critically low >=60 [facility] Comment on above: Performed By: #### B MP ####[facility] Vrwdbhrusf[address] [place], [place] [address]Dr. Ivette Hernandez EGFR-NON AF [place] 30 mL/min/1.73m2 Critically low >=60 [facility] Comment on above: Performed By: #### B MP ####[facility] Qlvinpsfvj[address] [place], [place] [address]Dr. Ivette Hernandez Glucose [Mass/Vol] 91 mg/dL Normal 74-106 [facility] Comment on above: Performed By: #### B MP ####[facility] Mdgylhpwii[address] [place], [place] [address]Dr. Ivette Hernandez Potassium [Moles/Vol] 3.9 mmol/L Normal 3.5-5.1 [facility] Comment on above: Performed By: #### B MP ####[facility] Gqnffxxqtp213[address] [place], [place] [address]Dr. Ivette Hernandez Sodium [Moles/Vol] 142 mmol/L Normal 136-145 [facility] Comment on above: Performed By: #### B MP ####[facility] Ytuttrflzj6[address] [place], [place] [address]Dr. Ivette Hernandez Urea nitrogen [Mass/Vol] 26.0 mg/dL Critically high 7.0-18.0 [facility] Comment on above: Performed By: #### B MP ####[facility] Ydbyjkchst[address] [place], [place] [address]Dr. Ivette Hernandez Urea nitrogen/Creatinine [Mass ratio] 15.6 mg/mg Normal [facility] Comment on above: Performed By: #### B MP ####[facility] [address]ujkvcvk[address] [place], [place] [address]Dr. Ivette Hernandez CBC AUTO DIFFon 04-12-2022 BASO # 0.0 103/ul Normal 0.0-0.1 [facility] Comment on above: Performed By: #### C BC ####[facility] P[address]thajvnkx[address] [place], [place] [address]Dr. Ivette Hernandez Basophils/100 WBC (Bld) 0.5 % Normal 0.2-2.0 [facility] Comment on above: Performed By: #### C BC ####[facility] P[address]jcuhxumf[address] [place], [place] [address]Dr. Ivette Hernandez EO # 0.3 103/ul Normal 0.0-0.7 [facility] Comment on above: Performed By: #### C BC ####[facility] Ujrjbfmbmj[address] [place], [place] [address]Dr. Ivette Hernandez Eosinophils/100 WBC (Bld) 4.4 % Normal 0.9-7.0 [facility] Comment on above: Performed By: #### C BC ####[facility] Ntuhanorxe[address] [place], [place] [address]Dr. Ivette Hernandez Erythrocyte distribution width (RBC) [Ratio] 14.2 % Normal 11.0-15.0 [facility] Comment on above: Performed By: #### C BC ####[facility] Nsiuimtxfz[address] [place], [place] [address]Dr. Ivette Hernandez Hematocrit (Bld) [Volume fraction] 25.9 % Critically low 36.0-48.0 [facility] Comment on above: Performed By: #### C BC ####[facility] Zmjxcwafdo[address] [place], [place] [address]Dr. Ivette Hernandez Hemoglobin (Bld) [Mass/Vol] 8.0 g/dL Critically low 12.0-16.0 [facility] Comment on above: Performed By: #### C BC ####[facility] Jtwhufomyi[address] [place], [place] [address]Dr. Ivette Hernandez IG # 0.03 10e3/ul Normal 0.00-0.03 [facility] Comment on above: Performed By: #### C BC ####[facility] Zvxlprehat6579 [place] [address]Dr. Ivette Hernandez IG % 0.5 % Normal 0.0-0.5 [facility] Comment on above: Performed By: #### C BC ####[facility] Btqkqlqnzp7[address] [place] [address]Dr. Ivette Hernandez LYMPH # 2.1 103/ul Normal 1.2-3.8 [facility] Comment on above: Performed By: #### C BC ####[facility] Adjxyhkwwq[address] [place], [place] [address]Dr. Ivette Hernandez Lymphocytes/100 WBC (Bld) 35.0 % Normal 20.5-60.0 [facility] Comment on above: Performed By: #### C BC ####[facility] Scqvdmlfnw[address] [place], [place] [address]Dr. Ivette Hernandez MANUAL DIFF REQ NO Normal [facility] Comment on above: Performed By: #### C BC ####[facility] Iukicewdis1095 [place] [address]Dr. Cherjun Hernandez MCH (RBC) [Entitic mass] 28.3 pg Normal 26.7-34.0 [facility] Comment on above: Performed By: #### C BC ####[facility] Ounousfaeu[address] [place], [place] [address]Dr. Cherjun Hernandez MCHC (RBC) [Mass/Vol] 30.9 g/dL Normal 29.9-35.2 [facility] Comment on above: Performed By: #### C BC ####[facility] Olcpjhowel[address] [place] [address]Dr. Ivette Hernandez MCV (RBC) [Entitic vol] 91.5 fL Normal 81.0-99.0 [facility] Comment on above: Performed By: #### C BC ####[facility] Nrudlmlaje[address] [place], [place] [address]Dr. Ivette Hernandez MONO # 0.4 103/ul Normal 0.3-0.8 [facility] Comment on above: Performed By: #### C BC ####[facility] Adfaebenef[address] [place], [place] [address]Dr. Ivette Hernandez Monocytes/100 WBC (Bld) 7.1 % Normal 1.7-12.0 [facility] Comment on above: Performed By: #### C BC ####[facility] Ouaqnjquiv7585 [place] [address]Dr. Ivette Hernandez NEUT # 3.1 103/ul Normal 1.4-6.5 [facility] Comment on above: Performed By: #### C BC ####[facility] Ydmchfkkzu7563 [place] [address]Dr. Ivette Hernandez Neutrophils/100 WBC (Bld) 52.5 % Normal 43.0-75.0 [facility] Comment on above: Performed By: #### C BC ####[facility] Rgjarvvtqc3379 [place] [address]Dr. Ivette Hernandez Platelet mean volume (Bld) [Entitic vol] 9.6 fL Normal 9.5-13.5 [facility] Comment on above: Performed By: #### C BC ####[facility] Lhiriapiij5376 [place] [address]Dr. vIette Hernandez PLT 163 103/ul Normal 150-450 [facility] Comment on above: Performed By: #### C BC ####[facility] Vbylqduibc2192 [place] [address]Dr. Ivette Hernandez RBC 2.83 106/ul Critically low 4.20-5.40 [facility] Comment on above: Performed By: #### C BC ####[facility] Xgzhabyzzl7049 [place] [address]Dr. Ivette Hernandez WBC 5.9 103/ul Normal 4.0-11.0 [facility] Comment on above: Performed By: #### C BC ####[facility] Iusfeceihl4274 [place] [address]Dr. Ivette Hernandez CULTURE URINEon 04-12-2022 CULTURE URINE Normal [facility] Comment on above: Performed By: #### U RCX ####[facility] Perdmxubtr9[address] [place] [address]Dr. Ivette David POINT OF CARE GLUCOSEon 04-02 Glucose [Mass/Vol] 106 mg/dL Normal 74-106 [facility] Comment on above: Performed By: #### P OCGLUC ####[facility] Imjewuwjlq2051 [place] [address]Dr. Ivette Hernandez Glucose [Mass/Vol] 212 mg/dL Critically high 74-[address] [facility] Comment on above: Performed By: #### P OCGLUC ####[facility] Ber[address]uknzaz[address] [place], [place] [address]Dr. Ivette Hernandez Glucose [Mass/Vol] 136 mg/dL Critically high 74-[address] [facility] Comment on above: Performed By: #### P OCGLUC ####[facility] [address]vvbnhlpvg[address] [place], [place] [address]Dr. Ivette David PROF CHEM 8 (BAS METB)on Anion gap [Moles/Vol] 9.6 mmol/L Normal [facility] Comment on above: Performed By: #### B MP ####[facility] Obatqjtlax[address] [place], [place] [address]Dr. Ivette Hernandez Calcium [Mass/Vol] 7.5 mg/dL Critically low 8.5-10.1 [facility] Comment on above: Performed By: #### B MP ####[facility] Qonhemrnjp[address] [place], [place] [address]Dr. Ivette Hernandez Chloride [Moles/Vol] 106 mmol/L Normal 98-107 [facility] Comment on above: Performed By: #### B MP ####[facility] Jfedvjnkrx[address] [place], [place] [address]Dr. Ivette David CO2 [Moles/Vol] 29.3 mmol/L Normal 21.0-32.0 [facility] Comment on above: Performed By: #### B MP ####[facility] Pnlpxsujky[address] [place] [address]Dr. Ivette Hernandez Creatinine [Mass/Vol] 1.48 mg/dL Critically high 0.55-1.02 [facility] Comment on above: Performed By: #### B MP ####[facility] Qfgrmgudop1162 [place] [address]Dr. Ivette Hernandze EGFR-AF [place] 42 mL/min/1.73m2 Critically low >=60 [facility] Comment on above: Performed By: #### B MP ####[facility] Xkdesnwjob4244 [place] [address]Dr. Ivette Hernandez EGFR-NON AF [place] 35 mL/min/1.73m2 Critically low >=60 [facility] Comment on above: Performed By: #### B MP ####[facility] Lkrfbsbdpk1357 [place] [address]Dr. Ivette Hernandez Glucose [Mass/Vol] 87 mg/dL Normal 74-106 [facility] Comment on above: Performed By: #### B MP ####[facility] Hkjikdisid0495 [place] [address]Dr. Ivette Hernandez Potassium [Moles/Vol] 3.9 mmol/L Normal 3.5-5.1 [facility] Comment on above: Performed By: #### B MP ####[facility] [address]voqtnlt[address] [place], [place] [address]Dr. Ivette Hernandez Sodium [Moles/Vol] 141 mmol/L Normal 136-145 [facility] Comment on above: Performed By: #### B MP ####[facility] Ygklpbzfqg2806 [place] [address]Dr. Ivette Hernandez Urea nitrogen [Mass/Vol] 24.0 mg/dL Critically high 7.0-18.0 [facility] Comment on above: Performed By: #### B MP ####[facility] Oqvseseyxm6534 [place] [address]Dr. Ivette Hernandez Urea nitrogen/Creatinine [Mass ratio] 16.2 mg/mg Normal [facility] Comment on above: Performed By: #### B MP ####[facility] Hblhqdffab8549 [place] [address]Dr. Ivette Hernandez CBC AUTO DIFFon 04-11-2022 BASO # 0.0 103/ul Normal 0.0-0.1 [facility] Comment on above: Performed By: #### C BC ####[facility] Qkclzlnjih5768 [place] [address]Dr. Ivette Hernandez Basophils/100 WBC (Bld) 0.3 % Normal 0.2-2.0 [facility] Comment on above: Performed By: #### C BC ####[facility] [address] [place], [place] [address]Dr. Ivette Hernandez EO # 0.2 103/ul Normal 0.0-0.7 [facility] Comment on above: Performed By: #### C BC ####[facility] J[address]iqtmii[address] [place], [place] [address]Dr. Ivette Hernandez Eosinophils/100 WBC (Bld) 2.8 % Normal 0.9-7.0 [facility] Comment on above: Performed By: #### C BC ####[facility] X[address]skhechw[address] [place] [address]Dr. Ivette Hernandez Erythrocyte distribution width (RBC) [Ratio] 14.4 % Normal 11.0-15.0 [facility] Comment on above: Performed By: #### C BC ####[facility] Xrokouuect[address] [place], [place] [address]Dr. Ivette Hernandez Hematocrit (Bld) [Volume fraction] 24.9 % Critically low 36.0-48.0 [facility] Comment on above: Performed By: #### C BC ####[facility] [address] [place], [place] [address]Dr. Ivette Hernandez Hemoglobin (Bld) [Mass/Vol] 7.7 g/dL Critically low 12.0-16.0 [facility] Comment on above: Performed By: #### C BC ####[facility] Xwxaiozbcr[address] [place], [place] [address]Dr. Ivette Hernandez IG # 0.02 10e3/ul Normal 0.00-0.03 [facility] Comment on above: Performed By: #### C BC ####[facility] [address]wcxm[address] [place], [place] [address]Dr. Ivette eHrnandez IG % 0.3 % Normal 0.0-0.5 [facility] Comment on above: Performed By: #### C BC ####[facility] Kxyydqtvxk2794 [place] [address]Dr. Ivette Hernandez LYMPH # 1.9 103/ul Normal 1.2-3.8 [facility] Comment on above: Performed By: #### C BC ####[facility] Qpcucvwpcz2071 [place] [address]Dr. Ivette Hernandez Lymphocytes/100 WBC (Bld) 32.7 % Normal 20.5-60.0 [facility] Comment on above: Performed By: #### C BC ####[facility] Dbmbncvghi4997 [place] [address]Dr. Ivette Hernandez MANUAL DIFF REQ NO Normal [facility] Comment on above: Performed By: #### C BC ####[facility] Reinrobdrw6101 [place] [address]Dr. Ivette Hernandez MCH (RBC) [Entitic mass] 28.3 pg Normal 26.7-34.0 [facility] Comment on above: Performed By: #### C BC ####[facility] Ppkjiimsly5236 [place] [address]Dr. Ivette Hernandez MCHC (RBC) [Mass/Vol] 30.9 g/dL Normal 29.9-35.2 [facility] Comment on above: Performed By: #### C BC ####[facility] Fmnxsclvlz5389 [place] [address]Dr. Ivette Hernandez MCV (RBC) [Entitic vol] 91.5 fL Normal 81.0-99.0 [facility] Comment on above: Performed By: #### C BC ####[facility] Ixouzkprkh0647 [place] [address]Dr. Ivette Hernandez MONO # 0.5 103/ul Normal 0.3-0.8 [facility] Comment on above: Performed By: #### C BC ####[facility] Ytawslxvre2469 [place] [address]Dr. Ivette Hernandez Monocytes/100 WBC (Bld) 8.2 % Normal 1.7-12.0 [facility] Comment on above: Performed By: #### C BC ####[facility] Ajumqvahvq6255 [place] [address]Dr. Ivette Hernandez NEUT # 3.2 103/ul Normal 1.4-6.5 [facility] Comment on above: Performed By: #### C BC ####[facility] Nftgrsjgra8517 [place] [address]Dr. Ivette Hernandez Neutrophils/100 WBC (Bld) 55.7 % Normal 43.0-75.0 [facility] Comment on above: Performed By: #### C BC ####[facility] Sevlvbjllr3218 [place] [address]Dr. Ivette Hernandez Platelet mean volume (Bld) [Entitic vol] 9.7 fL Normal 9.5-13.5 [facility] Comment on above: Performed By: #### C BC ####[facility] Vlvrsgaweh1445 [place] [address]Dr. Ivette Hernandez PLT 139 103/ul Critically low 150-450 [facility] Comment on above: Performed By: #### C BC ####[facility] Iphtlfnyxv8779 [place] [address]Dr. Ivette Hernandez RBC 2.72 106/ul Critically low 4.20-5.40 [facility] Comment on above: Performed By: #### C BC ####[facility] Ullmqdzhvk[address]278 [address] [place] [id number]. Ivette Hernandez WBC 5.8 103/ul Normal 4.0-11.0 [facility] Comment on above: Performed By: #### C BC ####[facility] Ojqwovihby7049 [place] [address]Dr. Ivette Hernandez IRON AND TIBCon 04-11-2022 % SATURATION 10.4 % Normal [facility] Comment on above: Performed By: #### B 12FOL, FETIBC ####[facility] Qyirvdsyyl8725 [place] [address]Dr. Ivette Hernandez Iron [Mass/Vol] 19.0 ug/dL Critically low 50.0-170.0 [facility] [place] Comment on above: Performed By: #### B 12FOL, FETIBC ####[facility] Jumrfvgvgn3635 [place] [address]Dr. Ivette Hernandez TIBC DIRECT 182.0 ug/dL Critically low 250.0-450.0 [facility] Comment on above: Performed By: #### B 12FOL, FETIBC ####[facility] Hfhrdfnvwp8013 [place] [address]Dr. Ivette Hernandez POINT OF CARE GLUCOSEon 04-02 Glucose [Mass/Vol] 124 mg/dL Critically high 74-[address] [facility] Comment on above: Performed By: #### P OCGLUC ####[facility] Vriiqnjslm[address] [place], [place] [address]Dr. Ivette Hernandez Glucose [Mass/Vol] 128 mg/dL Critically high 74-[address] [facility] Comment on above: Performed By: #### P OCGLUC ####[facility] Loqhjdurlh[address] [place], [place] [address]Dr. Ivette Hernandez Glucose [Mass/Vol] 144 mg/dL Critically high 74-[address] [facility] Comment on above: Performed By: #### P OCGLUC ####[facility] Tisobtprwx[address] [place], [place] [address]Dr. Ivette Hernandez PROF CHEM 8 (BAS METB)on Anion gap [Moles/Vol] 9.7 mmol/L [facility] Comment on above: Performed By: #### B MP ####[facility] Swdqecjpbq[address] [place], [place] [address]Dr. Ivette Hernandez Calcium [Mass/Vol] 6.9 mg/dL Critically low 8.5-10.1 [facility] Comment on above: Performed By: #### B MP ####[facility] Sflsznxnad6[address] [place], [place] [address]Dr. Ivette Hernandez Chloride [Moles/Vol] 109 mmol/L Critically high 98-107 [facility] Comment on above: Performed By: #### B MP ####[facility] Yrednoberi5[address] [place], [place] [address]Dr. Ivette Hernandez CO2 [Moles/Vol] 29.2 mmol/L Normal 21.0-32.0 [facility] Comment on above: Performed By: #### B MP ####[facility] Dnnvhytgov2056 [place] [address]Dr. Ivette Hernandez Creatinine [Mass/Vol] 1.41 mg/dL Critically high 0.55-1.02 [facility] Comment on above: Performed By: #### B MP ####[facility] Tkdzsgyzwb7962 [place] [address]Dr. Ivette David EGFR-AF [place]ER 44 mL/min/1.73m2 Critically low >=60 [facility] Comment on above: Performed By: #### B MP ####[facility] Nauxvzoptv[address] [place] [address]Dr. Cherjun David EGFR-NON AF [place] 37 mL/min/1.73m2 Critically low >=60 [facility] Comment on above: Performed By: #### B MP ####[facility] Bgcjaltbgz[address] [place], [place] [address]Dr. Ivette David Glucose [Mass/Vol] 95 mg/dL Normal 74-106 [facility] Comment on above: Performed By: #### B MP ####[facility] Mocmqumpsr4164[address] [place], [place] [address]Dr. Ivette David Potassium [Moles/Vol] 3.9 mmol/L Normal 3.5-5.1 [facility] Comment on above: Performed By: #### B MP ####[facility] Dypudmmjpz36[address] [place], [place] [address]Dr. Cherjun David Sodium [Moles/Vol] 144 mmol/L Normal 136-145 [facility] Comment on above: Performed By: #### B MP ####[facility] Xcjhjijeih7[address] [place], [place] [address]Dr. Ivette Hernandez Urea nitrogen [Mass/Vol] 25.0 mg/dL Critically high 7.0-18.0 [facility] Comment on above: Performed By: #### B MP ####[facility] Xldeaoyclu25[address] [place] [address]Dr. Ivette Hernandez Urea nitrogen/Creatinine [Mass ratio] 17.7 mg/mg Normal [facility] Comment on above: Performed By: #### B MP ####[facility] Rwkyubymlu4512 [place] [id number]. Ivette Hernandez VIT B12 AND FOLATEon 022 Cobalamin (Vitamin B12) [Mass/Vol] 769.0 pg/mL Normal 193.0-986.0 [facility] Comment on above: Performed By: #### B 12FOL, FETIBC ####[facility] Wdadtkvszb2246 [place] [address]Dr. Ivette Hernandez FOLATE 22.60 ng/mL Normal 8.60-58.90 [facility] Comment on above: Performed By: #### B 12FOL, FETIBC ####[facility] Gadzyneesp8253 [place] [address]Dr. Ivette Hernandez CARDIAC CANDACE 3-6on 2 CK [Catalytic activity/Vol] 38 U/L Normal 26-192 [facility] Comment on above: Performed By: #### C MREP ####[facility] Nillavobor[address] [place] [address]Dr. Ivette Hernandez CK.MB [Mass/Vol] 0.75 ng/mL Normal <=3.60 [facility] Comment on above: Performed By: #### C MREP ####[facility] Aioaglvomt3492 [place] [address]Dr. Ivette Hernandez HSTROP 11.9 pg/mL Normal 4.0-51.3 [facility] Comment on above: Result Comment: CUT- OFF POINTS HAVE BEEN ESTABLISHED BASED ON THE FOURTH UNIVERSAL DEFINITIONS OF MYOCARDIALINFARCTION. THE UPPER REFERENCE LIMIT (URL) OF TROPONIN, DEFINED THE 99TH PERCENTILE OFcTnI DISTRIBUTION IN A REFERENCE POPULATION, HAS BEEN CONFIRMED THE DECISION THRESHOLDFOR OR DIAGNOSIS. Performed By: #### C MREP ####[facility] Yyztrzksis0333 [place] [id number]. Ivette Hernandez CK [Catalytic activity/Vol] 38 U/L Normal 26-192 [facility] Comment on above: Performed By: #### C MREP ####[facility] Ucakaeochq8218 [place] [address]Dr. Cherjun Hernandez CK.MB [Mass/Vol] 0.11 ng/mL Normal <=3.60 [facility] Comment on above: Performed By: #### C MREP ####[facility] Ineufhautr5565 [place] [address]Dr. Ivette David HSTROP 11.5 pg/mL Normal 4.0-51.3 [facility] Comment on above: Result Comment: CUT- OFF POINTS HAVE BEEN ESTABLISHED BASED ON THE FOURTH UNIVERSAL DEFINITIONS OF MYOCARDIALINFARCTION. THE UPPER REFERENCE LIMIT (URL) OF TROPONIN, DEFINED THE 99TH PERCENTILE OFcTnI DISTRIBUTION IN A REFERENCE POPULATION, HAS BEEN CONFIRMED THE DECISION THRESHOLDFOR OR DIAGNOSIS. Performed By: #### C MREP ####[facility] Mnqgvkdgnm[address] [place], [place] [address]Dr. Cherjun Hernandez CBC AUTO DIFFon 04-10-2022 BASO # 0.0 103/ul Normal 0.0-0.1 [facility] Comment on above: Performed By: #### C BC ####[facility] Yfhfxddcwf166[address] [place], [place] [address]Dr. Ivette Hernandez Basophils/100 WBC (Bld) 0.3 % Normal 0.2-2.0 [facility] Comment on above: Performed By: #### C BC ####[facility] Gkukfnzljy19[address] [place], [place] [address]Dr. Ivette Hernandez EO # 0.1 103/ul Normal 0.0-0.7 [facility] Comment on above: Performed By: #### C BC ####[facility] Scxtfmystx9725[address] [place], [place] [address]Dr. Ivette Hernandez Eosinophils/100 WBC (Bld) 0.9 % Normal 0.9-7.0 [facility] Comment on above: Performed By: #### C BC ####[facility] Nivholoqmw5066[address] [place], [place] [address]Dr. Ivette Hernandez Erythrocyte distribution width (RBC) [Ratio] 14.5 % Normal 11.0-15.0 [facility] Comment on above: Performed By: #### C BC ####[facility] Fwxhepoopd0246 [place] [address]Dr. Ivette Hernandez Hematocrit (Bld) [Volume fraction] 26.1 % Critically low 36.0-48.0 [facility] Comment on above: Performed By: #### C BC ####[facility] Yroighoyfh7768 [place] [address]DrJesse Ivette David Hemoglobin (Bld) [Mass/Vol] 8.0 g/dL Critically low 12.0-16.0 [facility] Comment on above: Performed By: #### C BC ####[facility] Jykloldhjl62[address] [place], [place] [address]DrJesse Hernandez IG # 0.03 10e3/ul Normal 0.00-0.03 [facility] Comment on above: Performed By: #### C BC ####[facility] Tnyhhfkxmn76[address] [place] [address]Dr. Ivette Hernandez IG % 0.4 % Normal 0.0-0.5 [facility] Comment on above: Performed By: #### C BC ####[facility] Ngqcnkclcz6[address] [place], [place] [address]DrJesse Cherjun Hernandez LYMPH # 2.2 103/ul Normal 1.2-3.8 [facility] Comment on above: Performed By: #### C BC ####[facility] Hgbluocptn5586[address] [place], [place] [address]DrJesse Hernandez Lymphocytes/100 WBC (Bld) 29.3 % Normal 20.5-60.0 [facility] Comment on above: Performed By: #### C BC ####[facility] Jpttxzlytd7[address] [place], [place] [address]DrJesse Hernandez MANUAL DIFF REQ NO Normal [facility] Comment on above: Performed By: #### C BC ####[facility] Piiktjyvmj4576[address] [place], [place] [address]DrJesse Hernandez MCH (RBC) [Entitic mass] 28.4 pg Normal 26.7-34.0 [facility] Comment on above: Performed By: #### C BC ####[facility] Bzanvosbby1484 [place] [address]Dr. Ivette David MCHC (RBC) [Mass/Vol] 30.7 g/dL Normal 29.9-35.2 [facility] Comment on above: Performed By: #### C BC ####[facility] Obptwzffhu0310 [place] [address]DrJesse Hernandez MCV (RBC) [Entitic vol] 92.6 fL Normal 81.0-99.0 [facility] Comment on above: Performed By: #### C BC ####[facility] Ygkrhlymcb5637 [place] [address]DrJesse Hernandez MONO # 0.6 103/ul Normal 0.3-0.8 [facility] Comment on above: Performed By: #### C BC ####[facility] Qskmkggibh8039 [place] [address]Dr. Ivette Hernandez Monocytes/100 WBC (Bld) 8.7 % Normal 1.7-12.0 [facility] Comment on above: Performed By: #### C BC ####[facility] A[address]eriwvgd[address] [place], [place] [address]Dr. Ivette Hernandez NEUT # 4.5 103/ul Normal 1.4-6.5 [facility] Comment on above: Performed By: #### C BC ####[facility] Hkoofqugqa7227 [place] [address]DrJesse Hernandez Neutrophils/100 WBC (Bld) 60.4 % Normal 43.0-75.0 [facility] Comment on above: Performed By: #### C BC ####[facility] Hsslryrrcw9072 [place] [address]DrJesse Hernandez Platelet mean volume (Bld) [Entitic vol] 9.8 fL Normal 9.5-13.5 [facility] Comment on above: Performed By: #### C BC ####[facility] Wrwxpakldq6193 [place] [address]DrJesse Hernandez PLT 139 103/ul Critically low 150-450 [facility] Comment on above: Performed By: #### C BC ####[facility] D[address]sshufr[address] [place], [place] [address]Tu. Ivette Hernandez RBC 2.82 106/ul Critically low 4.20-5.40 [facility] Comment on above: Performed By: #### C BC ####[facility] Abwxaxlvud[address] [place], [place] [address]Qd. Ivette Hernandez WBC 7.4 103/ul Normal 4.0-11.0 [facility] Comment on above: Performed By: #### C BC ####[facility] Cvcjtbtvkd3358 [place] [address]Dr. Ivette Hernandez CULTURE BLOODon 04-10-2022 Microscopic examination of blood, culture Culture Observations: NO GROWTH AT 5 DAYS. Normal [facility] Comment on above: Performed By: #### B LDCX2 ####[facility] Uawuoazdev5522 [place] [address]Dr. Ivette Hernandez Microscopic examination of blood, culture Culture Observations: NO GROWTH AT 5 DAYS. Normal [facility] Comment on above: Performed By: #### B LDCX1 ####[facility] Fngiellbzf0434 [place] [address]Dr. Ivette Hernandez Covid-19 PCR (CVDTB)on SARS-CoV-2 (COVID-19) RNA MARRY+probe Ql (Unsp spec) Not detected Normal NOT DETECTED [facility] [...] for this test is supported by the [place] of Health and Human Service's declaration that [...] longer be used). Performed By: #### C MARK ####[facility] Kszbblxlyu12[address] [place], [place] [address]Dr. Ivette Hernandez ER URINE PROFILEon 2 Bilirubin Ql (U) Negative Normal NEGATIVE [facility] Comment on above: Performed By: #### FIDENCIO MCKOYRO ####[facility] Mlzuimwcfu65[address] [place], [place] [address]Dr. Ivette Hernandez Clarity (U) CLEAR Normal CLEAR [facility] Comment on above: Performed By: #### FIDENCIO MCKOYRO ####[facility] Uhumikmzog[address] [place] [address]Dr. Ivette Hernandez Color (U) YELLOW Normal YELLOW [facility] Comment on above: Performed By: #### FIDENCIO MCKOYRO ####[facility] Szzozckqrx16[address] [place], [place] [address]Dr. Ivette Hernandez ERUAHD A micrscopic examina tion will be performed if indicated. Normal [facility] Comment on above: Performed By: #### FIDENCIO MCKOYRO ####[facility] Iuzwbvoush2674[address] [place] [address]Dr. Ivette Hernandez Glucose Ql (U) Negative Normal NEGATIVE [facility] Comment on above: Performed By: #### FIDENCIO MCKOYRO ####[facility] Okdfxvndtk3266[address] [place], [place] [address]Dr. Ivette Hernandez Hemoglobin Ql (U) MODERATE Abnormal NEGATIVE [facility] Comment on above: Performed By: #### FIDENCIO MCKOYRO ####[facility] Mevgwdxwbu32[address] [place] [address]Dr. Ivette Hernandez Ketones Ql (U) TRACE Abnormal NEGATIVE [facility] Comment on above: Performed By: #### FIDENCIO MCKOYRO ####[facility] Mjsrjconns322[address] [place] [address]Dr. Ivette Hernandez LEUKOCYTES MODERATE Abnormal NEGATIVE [facility] Comment on above: Performed By: #### Ata RONDON UMICRO ####[facility] Leinrocuhj6075 [place] [address]Dr. Ivette Hernandez Nitrite Ql (U) Negative Normal NEGATIVE [facility] Comment on above: Performed By: #### Ata RONDON UMICRO ####[facility] Tqkeqrgnwv9115 [place] [address]Dr. Ivette Hernandez pH (U) 7.0 [pH] Normal 5-9 [facility] Comment on above: Performed By: #### FILIPE MCKOYICRO ####[facility] Jhciqlwjxr3971 [place] [address]Dr. Ivette Hernandez SPEC GRAVITY 1.020 Normal 1.005-<=1.0 25 [facility] Comment on above: Performed By: #### Ata RONDON ICRO ####[facility] Tdlfswwity5253 [place] [address]Dr. Ivette Hernandez UA PROTEIN >300 Abnormal NEGATIVE/ TRACE [facility] Comment on above: Performed By: #### FILIPE MCKOYICRO ####[facility] Peetjntiiz15[address] [place], [place] [address]Dr. Ivette Hernandez UR MICRO IND INDICATED Normal [facility] Comment on above: Performed By: #### FIDENCIO MCKOYRO ####[facility] Rmherseuui3450 [place] [address]Dr. Ivette Hernandez Urobilinogen Qn (U) 0.2 {Mack'U}/dL Normal 0.2 - 1. 0 [facility] Comment on above: Performed By: #### FILIPE MCKOYICRO ####[facility] Vbqohrtyvf2146 [place] [address]Dr. Ivette Hernandez POINT OF CARE GLUCOSEon 12-0 Glucose [Mass/Vol] 164 mg/dL Critically high 74-106 [facility] Comment on above: Performed By: #### P OCGLUC ####[facility] Ncgfflsfvd17[address] [place], [place] [address]Dr. Ivette Hernandez Glucose [Mass/Vol] 123 mg/dL Critically high 74-[address] [facility] Comment on above: Performed By: #### P OCGLUC ####[facility] Lbjfvoqwrk5625 [place] [address]Dr. Ivette Hernandez Glucose [Mass/Vol] 115 mg/dL Critically high 74-[address] [facility] Comment on above: Performed By: #### P OCGLUC ####[facility] Rtersbeemt330[address] [place], [place] [address]Dr. Ivette Hernandez PROF CHEM 8 (BAS METB)on Anion gap [Moles/Vol] 11.8 mmol/L Normal [facility] Comment on above: Performed By: #### B MP ####[facility] Czmjsyexqd75[address] [place], [place] [address]Dr. Ivette Hernandez Calcium [Mass/Vol] 6.5 mg/dL Critically low 8.5-10.1 [facility] Comment on above: Performed By: #### B MP ####[facility] Orijvimhth[address] [place], [place] [address]Dr. Ivette Hernandez Chloride [Moles/Vol] 108 mmol/L Critically high 98-107 [facility] Comment on above: Performed By: #### B MP ####[facility] Luzbyzzcql4127[address] [place], [place] [address]Dr. Ivette Hernandez CO2 [Moles/Vol] 29.2 mmol/L Normal 21.0-32.0 [facility] Comment on above: Performed By: #### B MP ####[facility] Ofoorgjksx228[address] [place], [place] [address]Dr. Ivette Hernandez Creatinine [Mass/Vol] 1.61 mg/dL Critically high 0.55-1.02 [facility] Comment on above: Performed By: #### B MP ####[facility] Djtvoyuykg2157[address] [place], [place] [address]Dr. Ivette Hernandez EGFR-AF [place] 38 mL/min/1.73m2 Critically low >=60 [facility] Comment on above: Performed By: #### B MP ####[facility] Dwyzklbszn4803 [place] [address]Dr. Ivette Hernandez EGFR-NON AF [place] 31 mL/min/1.73m2 Critically low >=60 [facility] Comment on above: Performed By: #### B MP ####[facility] Igovndxltv3573 [place] [address]Dr. Ivette Hernandez Glucose [Mass/Vol] 107 mg/dL Critically high 74-106 [facility] Comment on above: Performed By: #### B MP ####[facility] Zqcextwsky1059 [place] [address]Dr. Ivette Hernandez Potassium [Moles/Vol] 4.0 mmol/L Normal 3.5-5.1 [facility] Comment on above: Performed By: #### B MP ####[facility] Fhuatptpcl75[address] [place], [place] [address]Dr. Ivette Hernandez Sodium [Moles/Vol] 145 mmol/L Normal 136-145 [facility] Comment on above: Performed By: #### B MP ####[facility] Bltvigwkyf8613[address] [place], [place] [address]Dr. Cherjun Hernandez Urea nitrogen [Mass/Vol] 23.0 mg/dL Critically high 7.0-18.0 [facility] Comment on above: Performed By: #### B MP ####[facility] Zfhfrqsjdv29[address] [place] [address]Dr. Ivette Hernandez Urea nitrogen/Creatinine [Mass ratio] 14.3 mg/mg Normal [facility] Comment on above: Performed By: #### B MP ####[facility] [address]xbrlzkofr65[address] [place], [place] [address]Dr. Ivette David URINE MICROSCOPIC ONLYon BACTERIA MODERATE Abnormal NONE SEEN [facility] Comment on above: Performed By: #### SNONY MCKOY ####[facility] Gcjocjcgnq25[address] [place], [place] [address]Dr. Ivette Hernandez Bacteria identified Cx Nom (U) INDICATED Normal [facility] Comment on above: Performed By: #### SONNY MCKOY ####[facility] Srmsqpugcu84[address] [place] [address]Dr. Ivette Hernandez CAST NONE SEEN Normal NONE SEEN [facility] Comment on above: Performed By: #### Ata RONDON UMICRO ####[facility] Ausoipikeo4183 [place] [address]Dr. Ivette Hernandez Crystals LM Nom (Urine sed) NONE SEEN Normal NONE SEEN [facility] Comment on above: Performed By: #### Ata RONDON UMICRO ####[facility] Hrxcagmfxk8083 [place] [address]Dr. Ivette Hernandez Epithelial cells LM Ql (Urine sed) RARE Normal NONE SEEN /RARE [facility] Comment on above: Performed By: #### Ata RONDON UMICRO ####[facility] Esebailuwb6847 [place] [address]Dr. Ivette Hernandez MUCOUS NONE SEEN Normal NONE SEEN [facility] Comment on above: Performed By: #### Ata RONDON UMICRO ####[facility] Vkxcfwbscb70[address] [place] [address]Dr. Ivette Hernandez RBC NONE SEEN Abnormal 0-2 [facility] Comment on above: Performed By: #### Ata RONDON UMICRO ####[facility] Geuhlrcjsz[address] [place], [place] [address]Dr. Ivette Hernandez WBC 20-50 Abnormal NONE SEEN [facility] Comment on above: Performed By: #### FIDENCIO MCKOYRO ####[facility] [address]zmsyxazqs[address] [place] [place], [place] [address]Dr. Ivette Hernandez XR CHEST 1 Von 04-10-2022 XR CHEST 1 V Normal [facility] CARDIAC CANDACE ADMITon 022 CK [Catalytic activity/Vol] 37 U/L Normal 26-192 [facility] Comment on above: Performed By: #### MYRNA ORTIZ ####[facility] [address]tykum[address] [place] [address]Dr. Ivette Hernandez CK.MB [Mass/Vol] 0.14 ng/mL Normal <=3.60 [facility] Comment on above: Performed By: #### MYRNA ORTIZ ####[facility] [address]ox[address] [place] [address]Dr. Ivette Hernandez HSTROP 11.0 pg/mL Normal 4.0-51.3 [facility] Comment on above: Result Comment: CUT- OFF POINTS HAVE BEEN ESTABLISHED BASED ON THE FOURTH UNIVERSAL DEFINITIONS OF MYOCARDIALINFARCTION. THE UPPER REFERENCE LIMIT (URL) OF TROPONIN, DEFINED THE 99TH PERCENTILE OFcTnI DISTRIBUTION IN A REFERENCE POPULATION, HAS BEEN CONFIRMED THE DECISION THRESHOLDFOR OR DIAGNOSIS. Performed By: #### C RODDY, MYRNA ####[facility] C[address]ozagcmn[address] [place] [address]Dr. Ivette Hernandez CARMITA 1 ng/mL Critically low 9-82 [facility] Comment on above: Performed By: #### C RODDY, MYRNA ####[facility] Xwbxsqseps[address] [place], [place] [address]Dr. Ivette Hernandez CBC AUTO DIFFon 04-09-2022 BASO # 0.0 103/ul Normal 0.0-0.1 [facility] Comment on above: Performed By: #### C BC ####[facility] Sjswxykpyc[address] [place], [place] [address]Dr. Ivette Hernandez Basophils/100 WBC (Bld) 0.2 % Normal 0.2-2.0 [facility] Comment on above: Performed By: #### C BC ####[facility] X[address]mp[address] [place] [address]Dr. Ivette Hernandez EO # 0.0 103/ul Normal 0.0-0.7 [facility] Comment on above: Performed By: #### C BC ####[facility] Rgtvnlirui[address] [place] [address]Dr. Ivette Hernandez Eosinophils/100 WBC (Bld) 0.5 % Critically low 0.9-7.0 [facility] Comment on above: Performed By: #### C BC ####[facility] [address]yvz[address] [place] [address]Dr. Ivette Hernandez Erythrocyte distribution width (RBC) [Ratio] 14.6 % Normal 11.0-15.0 [facility] Comment on above: Performed By: #### C BC ####[facility] [address]ngzmpufxh[address] [place] [address]Dr. Ivette Hernandez Hematocrit (Bld) [Volume fraction] 27.0 % Critically low 36.0-48.0 [facility] Comment on above: Performed By: #### C BC ####[facility] M[address]wfvjcmj[address] [place] [address]Dr. Ivette David Hemoglobin (Bld) [Mass/Vol] 8.5 g/dL Critically low 12.0-16.0 [facility] Comment on above: Performed By: #### C BC ####[facility] Lhfefrayld45[address] [place] [address]Dr. Ivette Hernandez IG # 0.02 10e3/ul Normal 0.00-0.03 [facility] Comment on above: Performed By: #### C BC ####[facility] Ncyzcxbukf[address] [place] [address]Dr. Ivette Hernandez IG % 0.2 % Normal 0.0-0.5 [facility] Comment on above: Performed By: #### C BC ####[facility] Zvrkanktwp[address] [place] [address]Dr. Ivette Hernandez LYMPH # 1.4 103/ul Normal 1.2-3.8 [facility] Comment on above: Performed By: #### C BC ####[facility] Oiqpambxdn80[address] [place] [address]Dr. Ivette Hernandez Lymphocytes/100 WBC (Bld) 17.2 % Critically low 20.5-60.0 [facility] Comment on above: Performed By: #### C BC ####[facility] Mjfsererfe27[address] [place] [address]Dr. Ivette Hernandez MANUAL DIFF REQ NO Normal [facility] Comment on above: Performed By: #### C BC ####[facility] Bcvelj[address] [place], [place] [address]Dr. Ivette Hernandez MCH (RBC) [Entitic mass] 28.7 pg Normal 26.7-34.0 [facility] Comment on above: Performed By: #### C BC ####[facility] Izcludtz[address] [place] [id number]. Ivette Hernandez MCHC (RBC) [Mass/Vol] 31.5 g/dL Normal 29.9-35.2 [facility] Comment on above: Performed By: #### C BC ####[facility] Brepffxwrx[address] [place] [address]Dr. Ivette Hernandez MCV (RBC) [Entitic vol] 91.2 fL Normal 81.0-99.0 [facility] Comment on above: Performed By: #### C BC ####[facility] Ylnornxzkc45[address] [place] [address]Dr. Ivette David MONO # 0.5 103/ul Normal 0.3-0.8 [facility] Comment on above: Performed By: #### C BC ####[facility] Aiijiqgyjz[address] [place] [address]Dr. Cherjun Hernandez Monocytes/100 WBC (Bld) 6.5 % Normal 1.7-12.0 [facility] Comment on above: Performed By: #### C BC ####[facility] M[address]znsj[address] [place] [address]Dr. Ivette Hernandez NEUT # 6.3 103/ul Normal 1.4-6.5 [facility] Comment on above: Performed By: #### C BC ####[facility] [address] [place], [place] [address]Dr. Ivette Hernandez Neutrophils/100 WBC (Bld) 75.4 % Critically high 43.0-75.0 [facility] Comment on above: Performed By: #### C BC ####[facility] [address] [place], [place] [address]Dr. Ivette Hernandez Platelet mean volume (Bld) [Entitic vol] 9.8 fL Normal 9.5-13.5 [facility] Comment on above: Performed By: #### C BC ####[facility] [address] [place], [place] [address]Dr. Ivette David PLT 158 103/ul Normal 150-450 [facility] Comment on above: Performed By: #### C BC ####[facility] Quyeetcdzr[address] [place] [address]Dr. Ivette Hernandez RBC 2.96 106/ul Critically low 4.20-5.40 [facility] Comment on above: Performed By: #### C BC ####[facility] Arkjqfnwnp95[address] [place] [address]Dr. Ivette Hernandez WBC 8.4 103/ul Normal 4.0-11.0 [facility] Comment on above: Performed By: #### C BC ####[facility] Pqtmjcvrcn4[address] [place] [address]Dr. Ivette David LACTATE/LACTIC ACIDon 2021 Lactate [Moles/Vol] 0.9 mmol/L Normal 0.4-1.9 [facility] Comment on above: Performed By: #### L ACT ####[facility] Suzfxwdbel[address] [place], [place] [address]Dr. Ivette David PROF CHEM 8 (BAS METB)on Anion gap [Moles/Vol] 8.8 mmol/L Normal [facility] Comment on above: Performed By: #### C RODDY, BMP ####[facility] F[address]awrwnjk0[address] [place] [address]Dr. Ivette David Calcium [Mass/Vol] 6.9 mg/dL Critically low 8.5-10.1 [facility] Comment on above: Performed By: #### C MADM, BMP ####[facility] Szkfdledfz039[address] [place] [address]Dr. Ivette David Chloride [Moles/Vol] 105 mmol/L Normal 98-107 [facility] Comment on above: Performed By: #### C MADM, BMP ####[facility] Urgwunxjzs24[address] [place] [address]Dr. Ivette David CO2 [Moles/Vol] 28.1 mmol/L Normal 21.0-32.0 [facility] Comment on above: Performed By: #### C MADM, BMP ####[facility] Pfmnklzthu220[address] [place] [address]Dr. Ivette David Creatinine [Mass/Vol] 1.77 mg/dL Critically high 0.55-1.02 [facility] Comment on above: Performed By: #### Daren PEREYRA, BMP ####[facility] Lxjrnnsqpb35[address] [place] [address]Dr. Ivette Hernandez EGFR-AF [place] 34 mL/min/1.73m2 Critically low >=60 [facility] Comment on above: Performed By: #### Daren PEREYRA, BMP ####[facility] [address]azhmaadtf[address] [place] [address]Dr. Ivette Hernandez EGFR-NON AF [place] 28 mL/min/1.73m2 Critically low >=60 [facility] Comment on above: Performed By: #### Daren PEREYRA, BMP ####[facility] Vijersluxj[address] [place] [address]Dr. Ivette Hernandez Glucose [Mass/Vol] 130 mg/dL Critically high 74-106 [facility] Comment on above: Performed By: #### Daren PEREYRA, BMP ####[facility] Kunmntiqco[address] [place], [place] [address]Dr. Ivette Hernandez Potassium [Moles/Vol] 3.9 mmol/L Normal 3.5-5.1 [facility] Comment on above: Performed By: #### Daren PEREYRA, BMP ####[facility] X[address]ecvx[address]my[address] [place] [address]Dr. Ivette Hernandez Sodium [Moles/Vol] 138 mmol/L Normal 136-145 [facility] Comment on above: Performed By: #### Daren PEREYRA, BMP ####[facility] Wmrxtpeerc[address] [place] [address]Dr. Ivette Hernandez Urea nitrogen [Mass/Vol] 25.0 mg/dL Critically high 7.0-18.0 [facility] Comment on above: Performed By: #### Daren PEREYRA, BMP ####[facility] Dfamnjdtee[address] [place] [address]Dr. Ivette Hernandez Urea nitrogen/Creatinine [Mass ratio] 14.1 mg/mg Normal [facility] Comment on above: Performed By: #### Daren PEREYRA, BMP ####[facility] Ashhrbnzcv[address] [place] [address]Dr. Ivette Hernandez AMMONIAon 03-10-2022 Ammonia (P) [Moles/Vol] 12 umol/L Normal 11-32 [facility] Comment on above: Performed By: #### A MM ####[facility] [address]psvzpqv[address] [place] [address]Dr. Ivette Hernandez BNPon 03-10-2022 Natriuretic peptide B (Bld) [Mass/Vol] 9132.0 pg/mL Critically high <=900.0 [facility] Comment on above: Performed By: #### M G, CMP, PHOS, BNP ####[facility] C[address]xqxpfcz[address] [place], [place] [address]Dr. Ivette David CBC AUTO DIFFon 03-10-2022 BASO # 0.0 103/ul Normal 0.0-0.1 [facility] Comment on above: Performed By: #### C BC ####[facility] L[address]xyutcujl[address] [place] [address]Dr. Ivette Hernandez Basophils/100 WBC (Bld) 0.3 % Normal 0.2-2.0 [facility] Comment on above: Performed By: #### C BC ####[facility] S[address]hehuww[address] [place] [address]Dr. Ivette David EO # 0.3 103/ul Normal 0.0-0.7 [facility] Comment on above: Performed By: #### C BC ####[facility] Euelagqgxf[address] [place] [address]Dr. Ivette Hernandez Eosinophils/100 WBC (Bld) 3.2 % Normal 0.9-7.0 [facility] Comment on above: Performed By: #### C BC ####[facility] Cvpiwikuqn[address] [place] [address]Dr. Ivette Hernandez Erythrocyte distribution width (RBC) [Ratio] 14.3 % Normal 11.0-15.0 [facility] Comment on above: Performed By: #### C BC ####[facility] Pmlauobbhw[address] [place] [address]Dr. Ivette Hernandez Hematocrit (Bld) [Volume fraction] 25.5 % Critically low 36.0-48.0 [facility] Comment on above: Performed By: #### C BC ####[facility] Lopjjjgegc2434 [place] [address]DrJesse Hernandez Hemoglobin (Bld) [Mass/Vol] 8.0 g/dL Critically low 12.0-16.0 [facility] Comment on above: Performed By: #### C BC ####[facility] Cmjalxbhhi8016 [place] [address]DrJesse Hernandez IG # 0.05 10e3/ul Critically high 0.00-0.03 [facility] Comment on above: Performed By: #### C BC ####[facility] Unpxmbeykn[address] [place], [place] [address]DrJesse Hernandez IG % 0.6 % Critically high 0.0-0.5 [facility] Comment on above: Performed By: #### C BC ####[facility] Xmbirdbwna[address] [place], [place] [address]DrJesse Hernandez LYMPH # 1.9 103/ul Normal 1.2-3.8 [facility] Comment on above: Performed By: #### C BC ####[facility] [address]zvjrz[address] [place] [address]DrJesse Hernandez Lymphocytes/100 WBC (Bld) 20.8 % Normal 20.5-60.0 [facility] Comment on above: Performed By: #### C BC ####[facility] Laubpfbqot[address] [place] [address]DrJesse Hernandez MANUAL DIFF REQ NO Normal [facility] Comment on above: Performed By: #### C BC ####[facility] Qldyaozixj[address] [place], [place] [address]DrJesse Hernandez MCH (RBC) [Entitic mass] 28.7 pg Normal 26.7-34.0 [facility] Comment on above: Performed By: #### C BC ####[facility] [address]qhwqyfhm[address] [place], [place] [address]DrJesse Hernandez MCHC (RBC) [Mass/Vol] 31.4 g/dL Normal 29.9-35.2 [facility] Comment on above: Performed By: #### C BC ####[facility] Fewzshdzzs4604 [place] [address]DrJesse Hernandez MCV (RBC) [Entitic vol] 91.4 fL Normal 81.0-99.0 [facility] Comment on above: Performed By: #### C BC ####[facility] Mxjgycjubw[address] [place] [address]DrJesse Hernandez MONO # 0.5 103/ul Normal 0.3-0.8 [facility] Comment on above: Performed By: #### C BC ####[facility] Z[address]ajoztz[address] [place], [place] [address]DrJesse Hernandez Monocytes/100 WBC (Bld) 5.6 % Normal 1.7-12.0 [facility] Comment on above: Performed By: #### C BC ####[facility] Fiicxpnlha[address] [place] [address]DrJesse Hernandez NEUT # 6.2 103/ul Normal 1.4-6.5 [facility] Comment on above: Performed By: #### C BC ####[facility] [address]usyijnro[address] [place], [place] [address]DrJesse Hernandez Neutrophils/100 WBC (Bld) 69.5 % Normal 43.0-75.0 [facility] Comment on above: Performed By: #### C BC ####[facility] G[address]zmcrk[address] [place], [place] [address]DrJesse Hernandez Platelet mean volume (Bld) [Entitic vol] 9.3 fL Critically low 9.5-13.5 [facility] Comment on above: Performed By: #### C BC ####[facility] Emjclbwqav[address] [place] [address]DrJesse Hernandez PLT 213 103/ul Normal 150-450 [facility] Comment on above: Performed By: #### C BC ####[facility] [address]xy[address] [place], [place] [address]DrJesse Hernandez RBC 2.79 106/ul Critically low 4.20-5.40 [facility] Comment on above: Performed By: #### C BC ####[facility] Ooppfslzos040[address] [place] [address]Dr. Ivette Hernandez WBC 8.9 103/ul Normal 4.0-11.0 [facility] Comment on above: Performed By: #### C BC ####[facility] Nerzvjkuau76[address] [place] [address]Dr. Ivette Hernandez MAGNESIUMon 03-10-2022 Magnesium [Mass/Vol] 1.9 mg/dL Normal 1.8-2.4 [facility] Comment on above: Performed By: #### M G, CMP, PHOS, BNP ####[facility] Sedjhlrmhi[address] [place] [address]Dr. Ivette Hernandez PHOSPHORUSon 03-10-2022 Phosphate [Mass/Vol] 3.8 mg/dL Normal 2.6-4.7 [facility] Comment on above: Performed By: #### M G, CMP, PHOS, BNP ####[facility] Rwjaedidbg63[address] [place] [address]Dr. Ivette Hernandze PROF 14(COMP METB)on 022 Albumin [Mass/Vol] 2.3 g/dL Critically low 3.4-5.0 [facility] Comment on above: Performed By: #### M G, CMP, PHOS, BNP ####[facility] Flgamklnhr7[address] [place] [address]Dr. Ivette Hernandez Albumin/Globulin [Mass ratio] 0.6 {ratio} Normal [facility] Comment on above: Performed By: #### M G, CMP, PHOS, BNP ####[facility] Vwqearzcwe9236 [place] [address]Dr. Ivette Hernandez ALP [Catalytic activity/Vol] 64 U/L Normal 46-116 [facility] Comment on above: Performed By: #### M G, CMP, PHOS, BNP ####[facility] Qwctkwhynp9163 [place] [address]Dr. Ivette Hernandez ALT [Catalytic activity/Vol] 14 U/L Normal 14-59 [facility] Comment on above: Performed By: #### M G, CMP, PHOS, BNP ####[facility] Cbdzoopyss7962 [place] [address]Dr. Ivette Hernandez Anion gap [Moles/Vol] 3.4 mmol/L Normal [facility] Comment on above: Performed By: #### M G, CMP, PHOS, BNP ####[facility] Xmkqvwhfds0883 [place] [address]Dr. Ivette Hernandez AST [Catalytic activity/Vol] 20 U/L Normal 15-37 [facility] Comment on above: Performed By: #### M G, CMP, PHOS, BNP ####[facility] [address]xnqfquh[address] [place], [place] [address]Dr. Ivette Hernandez Bilirubin [Mass/Vol] 0.3 mg/dL Normal 0.2-1.0 [facility] Comment on above: Performed By: #### M G, CMP, PHOS, BNP ####[facility] Tpharymfmn[address] [place] [address]Dr. Ivette Hernandez Calcium [Mass/Vol] 8.3 mg/dL Critically low 8.5-10.1 [facility] Comment on above: Performed By: #### M G, CMP, PHOS, BNP ####[facility] Kkpbpwhvpp2584 [place] [address]Dr. Ivette Hernandez Chloride [Moles/Vol] 100 mmol/L Normal 98-107 [facility] Comment on above: Performed By: #### M G, CMP, PHOS, BNP ####[facility] [address]aprrcyow[address] [place] [address]Dr. Ivette Hernandez CO2 [Moles/Vol] 38.3 mmol/L Critically high 21.0-32.0 [facility] Comment on above: Performed By: #### M G, CMP, PHOS, BNP ####[facility] Xxxwvkjkze[address] [place] [address]Dr. Ivette Hernandez Creatinine [Mass/Vol] 1.50 mg/dL Critically high 0.55-1.02 [facility] Comment on above: Performed By: #### M G, CMP, PHOS, BNP ####[facility] Wkenkapyyq1337 [place] [address]Dr. Ivette Hernandez EGFR-AF [place] 41 mL/min/1.73m2 Critically low >=60 [facility] Comment on above: Performed By: #### M G, CMP, PHOS, BNP ####[facility] Wpehriwubi7124 [place] [address]Dr. Ivette Hernandez EGFR-NON AF [place] 34 mL/min/1.73m2 Critically low >=60 [facility] Comment on above: Performed By: #### M G, CMP, PHOS, BNP ####[facility] [address]meuuwndab[address] [place] [address]Dr. Ivette Hernandez Globulin (S) [Mass/Vol] 4.1 g/dL Normal [facility] Comment on above: Performed By: #### M G, CMP, PHOS, BNP ####[facility] [address]nwtzikc[address] [place], [place] [address]Dr. Ivette Hernandez Glucose [Mass/Vol] 114 mg/dL Critically high 74-[address] [facility] Comment on above: Performed By: #### M G, CMP, PHOS, BNP ####[facility] Qirctntsek[address] [place], [place] [address]Dr. Ivette Hernandez Potassium [Moles/Vol] 3.7 mmol/L Normal 3.5-5.1 [facility] Comment on above: Performed By: #### M G, CMP, PHOS, BNP ####[facility] Bgqvkgvnwu8[address] [place] [address]Dr. Ivette Hernandez Protein [Mass/Vol] 6.4 g/dL Normal 6.4-8.2 [facility] Comment on above: Performed By: #### M G, CMP, PHOS, BNP ####[facility] Fspybljlbb8[address] [place] [address]Dr. Ivette Hernandez Sodium [Moles/Vol] 138 mmol/L Normal 136-145 [facility] Comment on above: Performed By: #### M G, CMP, PHOS, BNP ####[facility] Uojlkgmdtw5176 [place] [address]Dr. Ivette Hernandez Urea nitrogen [Mass/Vol] 20.0 mg/dL Critically high 7.0-18.0 [facility] Comment on above: Performed By: #### M G, CMP, PHOS, BNP ####[facility] Cejemzeaax[address] [place] [address]Dr. Ivette Hernandez Urea nitrogen/Creatinine [Mass ratio] 13.3 mg/mg Normal [facility] Comment on above: Performed By: #### M G, CMP, PHOS, BNP ####[facility] [address]wprah[address] [place] [address]Dr. Ivette Hernandez AMMONIAon 03-09-2022 Ammonia (P) [Moles/Vol] 15 umol/L Normal [facility] Comment on above: Performed By: #### A MM ####[facility] [address]ws[address] [place] [address]Dr. Ivette Hernandez BNPon 03-09-2022 Natriuretic peptide B (Bld) [Mass/Vol] 33911.0 pg/mL Critically high <=900.0 [facility] Comment on above: Performed By: #### B FULL ST[employer] SOFTWARE DEVELOPER, PHOS, MG, CMP ####[facility] [address]wktasu[address] [place], [place] [address]Dr. Ivette Hernandez CBC AUTO DIFFon 03-09-2022 BASO # 0.0 103/ul Normal 0.0-0.1 [facility] Comment on above: Performed By: #### C BC ####[facility] Hitmsvcwns[address] [place], [place] [address]Dr. Ivette Hernandez Basophils/100 WBC (Bld) 0.5 % Normal 0.2-2.0 [facility] Comment on above: Performed By: #### C BC ####[facility] Pkwwdwfsjj[address] [place], [place] [address]Dr. Ivette Hernandez EO # 0.2 103/ul Normal 0.0-0.7 [facility] Comment on above: Performed By: #### C BC ####[facility] Aerxmpgxby45[address] [place] [address]Dr. Ivette Hernandez Eosinophils/100 WBC (Bld) 2.6 % Normal 0.9-7.0 [facility] Comment on above: Performed By: #### C BC ####[facility] Uwdnxxonsu[address] [place], [place] [address]Dr. Ivette Hernandez Erythrocyte distribution width (RBC) [Ratio] 14.2 % Normal 11.0-15.0 [facility] Comment on above: Performed By: #### C BC ####[facility] Joiyhlwscb[address] [place], [place] [address]Dr. Ivette Hernandez Hematocrit (Bld) [Volume fraction] 26.7 % Critically low 36.0-48.0 [facility] Comment on above: Performed By: #### C BC ####[facility] Fsrjlfatvc[address] [place], [place] [address]Dr. Ivette Hernandez Hemoglobin (Bld) [Mass/Vol] 8.3 g/dL Critically low 12.0-16.0 [facility] Comment on above: Performed By: #### C BC ####[facility] Fwrojwzqdd[address] [place] [address]Dr. Ivette Hernandez IG # 0.05 10e3/ul Critically high 0.00-0.03 [facility] Comment on above: Performed By: #### C BC ####[facility] Vppibgdnxy[address] [place] [address]Dr. Ivette Hernandez IG % 0.7 % Critically high 0.0-0.5 [facility] Comment on above: Performed By: #### C BC ####[facility] Bpcgbjwwti[address] [place], [place] [address]Dr. Ivette Hernandez LYMPH # 1.4 103/ul Normal 1.2-3.8 [facility] Comment on above: Performed By: #### C BC ####[facility] Qftiooeaqj[address] [place], [place] [address]Dr. Ivette Hernandez Lymphocytes/100 WBC (Bld) 17.6 % Critically low 20.5-60.0 [facility] Comment on above: Performed By: #### C BC ####[facility] Qrgzjlnixf4899 [place] [id number]. Ivette Hernandez MANUAL DIFF REQ NO Normal [facility] Comment on above: Performed By: #### C BC ####[facility] Rlezclahsf5401 [place] [id number]. Ivette Hernandez MCH (RBC) [Entitic mass] 28.6 pg Normal 26.7-34.0 [facility] Comment on above: Performed By: #### C BC ####[facility] Ryoanotwrl[address] [place], [place] [address]Dr. Ivette Hernandez MCHC (RBC) [Mass/Vol] 31.1 g/dL Normal 29.9-35.2 [facility] Comment on above: Performed By: #### C BC ####[facility] [address]khnlwzsex[address] [place], [place] [address]Dr. Ivette Hernandez MCV (RBC) [Entitic vol] 92.1 fL Normal 81.0-99.0 [facility] Comment on above: Performed By: #### C BC ####[facility] Yihyfyycjv[address] [place], [place] [address]Dr. Ivette Hernandez MONO # 0.5 103/ul Normal 0.3-0.8 [facility] Comment on above: Performed By: #### C BC ####[facility] Pqvmwcwctc[address] [place], [place] [address]Dr. Ivette David Monocytes/100 WBC (Bld) 6.2 % Normal 1.7-12.0 [facility] Comment on above: Performed By: #### C BC ####[facility] [address] [place], [place] [address]Dr. Ivette Hernandez NEUT # 5.6 103/ul Normal 1.4-6.5 [facility] Comment on above: Performed By: #### C BC ####[facility] Jiobukicse[address] [place], [place] [address]Dr. Ivette Hernandez Neutrophils/100 WBC (Bld) 72.4 % Normal 43.0-75.0 [facility] Comment on above: Performed By: #### C BC ####[facility] Sitygkasuu3953 [place] [address]Dr. Ivette Hernandez Platelet mean volume (Bld) [Entitic vol] 9.6 fL Normal 9.5-13.5 [facility] Comment on above: Performed By: #### C BC ####[facility] Prvntzbazf1766 [place] [address]Dr. Ivette Hernandez PLT 233 103/ul Normal 150-450 [facility] Comment on above: Performed By: #### C BC ####[facility] Rwdfnzefkh2564 [place] [address]Dr. Ivette Hernandez RBC 2.90 106/ul Critically low 4.20-5.40 [facility] Comment on above: Performed By: #### C BC ####[facility] Tbpsavfsjn3817 [place] [address]Dr. Ivette Hernandez WBC 7.7 103/ul Normal 4.0-11.0 [facility] Comment on above: Performed By: #### C BC ####[facility] Mqgpjxeuju3980 [place] [address]Dr. Ivette Hernandez BASO # 0.0 103/ul Normal 0.0-0.1 [facility] Comment on above: Performed By: #### C BC ####[facility] Rlwobdopsc9774 [place] [address]Dr. Ivette Hernandez Basophils/100 WBC (Bld) 0.5 % Normal 0.2-2.0 [facility] Comment on above: Performed By: #### C BC ####[facility] Aomhyhpoea4138 [place] [address]Dr. Ivette Hernandez EO # 0.2 103/ul Normal 0.0-0.7 [facility] Comment on above: Performed By: #### C BC ####[facility] Ytzkioeikq4509 [place] [address]Dr. Ivette Hernandez Eosinophils/100 WBC (Bld) 2.8 % Normal 0.9-7.0 [facility] Comment on above: Performed By: #### C BC ####[facility] Sqeftynjri[address] [place], [place] [address]Dr. Ivette Hernandez Erythrocyte distribution width (RBC) [Ratio] 14.3 % Normal 11.0-15.0 [facility] Comment on above: Performed By: #### C BC ####[facility] Weglkpcijx[address] [place], [place] [address]Dr. Ivette Hernandez Hematocrit (Bld) [Volume fraction] 25.2 % Critically low 36.0-48.0 [facility] Comment on above: Performed By: #### C BC ####[facility] Fokdmzobmk[address] [place] [address]Dr. Cherjun Hernandez Hemoglobin (Bld) [Mass/Vol] 7.8 g/dL Critically low 12.0-16.0 [facility] Comment on above: Performed By: #### C BC ####[facility] Uruwucysxq[address] [place], [place] [address]Dr. Ivette Hernandez IG # 0.02 10e3/ul Normal 0.00-0.03 [facility] Comment on above: Performed By: #### C BC ####[facility] Vcjxiwzpeu6[address] [place], [place] [address]Dr. Cherjun Hernandez IG % 0.3 % Normal 0.0-0.5 [facility] Comment on above: Performed By: #### C BC ####[facility] Lagmfqvrlz[address] [place] [address]Dr. Ivette Hernandez LYMPH # 1.6 103/ul Normal 1.2-3.8 [facility] Comment on above: Performed By: #### C BC ####[facility] Qpupjlixwq[address] [place] [address]Dr. Ivette Hernandez Lymphocytes/100 WBC (Bld) 24.5 % Normal 20.5-60.0 [facility] Comment on above: Performed By: #### C BC ####[facility] F[address]epmxkcr[address] [place] [address]Dr. Ivette Hernandez MANUAL DIFF REQ NO Normal [facility] Comment on above: Performed By: #### C BC ####[facility] Mgvvaxdbhr[address] [place], [place] [address]Dr. Ivette Hernandez MCH (RBC) [Entitic mass] 28.4 pg Normal 26.7-34.0 [facility] Comment on above: Performed By: #### C BC ####[facility] Ofshvyofsv0334 [place] [address]Dr. Ivette Hernandez MCHC (RBC) [Mass/Vol] 31.0 g/dL Normal 29.9-35.2 [facility] Comment on above: Performed By: #### C BC ####[facility] Yjopxhqkgm7[address] [place] [address]Dr. Ivette David MCV (RBC) [Entitic vol] 91.6 fL Normal 81.0-99.0 [facility] Comment on above: Performed By: #### C BC ####[facility] Stsldgfgdn[address] [place] [address]Dr. Ivette David MONO # 0.5 103/ul Normal 0.3-0.8 [facility] Comment on above: Performed By: #### C BC ####[facility] Xpkajzxnpf9[address] [place] [address]Dr. Cherjun Hernandez Monocytes/100 WBC (Bld) 7.8 % Normal 1.7-12.0 [facility] Comment on above: Performed By: #### C BC ####[facility] Q[address]fcwjl[address] [place] [address]Dr. Ivette Hernandez NEUT # 4.2 103/ul Normal 1.4-6.5 [facility] Comment on above: Performed By: #### C BC ####[facility] Uelhoysxxo89[address] [place] [address]Dr. Cherjun Hernandez Neutrophils/100 WBC (Bld) 64.1 % Normal 43.0-75.0 [facility] Comment on above: Performed By: #### C BC ####[facility] Maglrblgkv5143 [place] [address]Dr. Cherjun Hernandez Platelet mean volume (Bld) [Entitic vol] 9.2 fL Critically low 9.5-13.5 [facility] Comment on above: Performed By: #### C BC ####[facility] Ktnpbxjknx6[address] [place] [address]Dr. Ivette Hernandez PLT 208 103/ul Normal 150-450 [facility] Comment on above: Performed By: #### C BC ####[facility] Ttzjlagfqn1367 [place] [address]Dr. Ivette Hernandez RBC 2.75 106/ul Critically low 4.20-5.40 [facility] Comment on above: Performed By: #### C BC ####[facility] Iiqcoiyjaj5416 [place] [address]Dr. Ivette Hernandez WBC 6.5 103/ul Normal 4.0-11.0 [facility] Comment on above: Performed By: #### C BC ####[facility] Lnjivijoyd9539 [place] [address]Dr. Ivette Hernandez MAGNESIUMon 03-09-2022 Magnesium [Mass/Vol] 1.7 mg/dL Critically low 1.8-2.4 [facility] Comment on above: Performed By: #### B FULL STACK SOFTWARE DEVELOPER, PHOS, MG, CMP ####[facility] Zvtrggapnd90[address] [place] [address]Dr. Ivette Hernandez MRI BRAIN WO CONon 2 MRI BRAIN WO CON Normal [facility] PHOSPHORUSon 03-09-2022 Phosphate [Mass/Vol] 3.5 mg/dL Normal 2.6-4.7 [facility] Comment on above: Performed By: #### B FULL STACK SOFTWARE DEVELOPER, PHOS, MG, CMP ####[facility] E[address]wcadfxt[address] [place] [address]Dr. Ivette David PROF 14(COMP METB)on 022 Albumin [Mass/Vol] 2.3 g/dL Critically low 3.4-5.0 [facility] Comment on above: Performed By: #### B FULL STACK SOFTWARE DEVELOPER, PHOS, MG, CMP ####[facility] Jhtlcsnkok0258 [place] [address]Dr. Ivette David Albumin/Globulin [Mass ratio] 0.6 {ratio} Normal [facility] Comment on above: Performed By: #### B FULL STACK SOFTWARE DEVELOPER, PHOS, MG, CMP ####[facility] Jybtbejxig2461 [place] [address]Dr. Ivette Hernandez ALP [Catalytic activity/Vol] 58 U/L Normal 46-116 [facility] Comment on above: Performed By: #### B FULL STACK SOFTWARE DEVELOPER, PHOS, MG, CMP ####[facility] Bfuuaelcee500[address] [place] [address]Dr. Ivette Hernandez ALT [Catalytic activity/Vol] 13 U/L Critically low 14-59 [facility] Comment on above: Performed By: #### B FULL STACK SOFTWARE DEVELOPER, PHOS, MG, CMP ####[facility] Ahrtlzvhwv23[address] [place] [address]Dr. Ivette Hernandez Anion gap [Moles/Vol] 5.6 mmol/L Normal [facility] Comment on above: Performed By: #### B FULL STACK SOFTWARE DEVELOPER, PHOS, MG, CMP ####[facility] Z[address]xplgei[address] [place], [place] [address]Dr. Ivette Hernandez AST [Catalytic activity/Vol] 16 U/L Normal 15-37 [facility] Comment on above: Performed By: #### B FULL STACK SOFTWARE DEVELOPER, PHOS, MG, CMP ####[facility] O[address]qbfruwg[address] [place], [place] [address]Dr. Ivette Hernandez Bilirubin [Mass/Vol] 0.4 mg/dL Normal 0.2-1.0 [facility] Comment on above: Performed By: #### B FULL STACK SOFTWARE DEVELOPER, PHOS, MG, CMP ####[facility] Dxvzglczcg1305 [place] [address]Dr. Ivette Hernandez Calcium [Mass/Vol] 7.9 mg/dL Critically low 8.5-10.1 [facility] Comment on above: Performed By: #### B FULL STACK SOFTWARE DEVELOPER, PHOS, MG, CMP ####[facility] [address]tofufxyxo[address] [place], [place] [address]Dr. Ivette Hernandez Chloride [Moles/Vol] 99 mmol/L Normal 98-107 [facility] Comment on above: Performed By: #### B FULL STACK SOFTWARE DEVELOPER, PHOS, MG, CMP ####[facility] Ozmgddnqke0903 [place] [address]Dr. Ivette Hernandez CO2 [Moles/Vol] 40.2 mmol/L Critically high 21.0-32.0 [facility] Comment on above: Performed By: #### B FULL STACK SOFTWARE DEVELOPER, PHOS, MG, CMP ####[facility] Buyqxbnpdl1159 [place] [address]Dr. Ivette Hernandez Creatinine [Mass/Vol] 1.47 mg/dL Critically high 0.55-1.02 [facility] Comment on above: Performed By: #### B FULL STACK SOFTWARE DEVELOPER, PHOS, MG, CMP ####[facility] Kraynvnizy[address] [place], [place] [address]Dr. Ivette Hernandez EGFR-AF [place] 42 mL/min/1.73m2 Critically low >=60 [facility] Comment on above: Performed By: #### B FULL STACK SOFTWARE DEVELOPER, PHOS, MG, CMP ####[facility] R[address]yucdffz[address] [place] [address]Dr. Ivette Hernandez EGFR-NON AF [place] 35 mL/min/1.73m2 Critically low >=60 [facility] Comment on above: Performed By: #### B FULL STACK SOFTWARE DEVELOPER, PHOS, MG, CMP ####[facility] Qimgamdrhg6[address] [place], [place] [address]Dr. Ivette Hernandez Globulin (S) [Mass/Vol] 4.0 g/dL Normal [facility] Comment on above: Performed By: #### B FULL STACK SOFTWARE DEVELOPER, PHOS, MG, CMP ####[facility] Nqiyugyyft7[address] [place], [place] [address]Dr. Ivette Hernandez Glucose [Mass/Vol] 100 mg/dL Normal 74-106 [facility] Comment on above: Performed By: #### B FULL STACK SOFTWARE DEVELOPER, PHOS, MG, CMP ####[facility] Sutxiqfkid[address] [place], [place] [address]Dr. Ivette Hernandez Potassium [Moles/Vol] 3.8 mmol/L Normal 3.5-5.1 [facility] Comment on above: Performed By: #### B FULL STACK SOFTWARE DEVELOPER, PHOS, MG, CMP ####[facility] Nswzqqcjhu2932 [place] [address]Dr. Ivette Hernandez Protein [Mass/Vol] 6.3 g/dL Critically low 6.4-8.2 Th e [facility] Comment on above: Performed By: #### B FULL STACK SOFTWARE DEVELOPER, PHOS, MG, CMP ####[facility] Wbqynekdho[address] [place], [place] [address]Dr. Cherjun Hernandez Sodium [Moles/Vol] 141 mmol/L Normal 136-145 [facility] Comment on above: Performed By: #### B FULL STACK SOFTWARE DEVELOPER, PHOS, MG, CMP ####[facility] Gcncsqcwws[address] [place], [place] [address]Dr. Ivette Hernandez Urea nitrogen [Mass/Vol] 19.0 mg/dL Critically high 7.0-18.0 [facility] Comment on above: Performed By: #### B FULL STACK SOFTWARE DEVELOPER, PHOS, MG, CMP ####[facility] Meoyojzvhh[address] [place], [place] [address]Dr. Ivette Hernandez Urea nitrogen/Creatinine [Mass ratio] 12.9 mg/mg Normal [facility] Comment on above: Performed By: #### B FULL STACK SOFTWARE DEVELOPER, PHOS, MG, CMP ####[facility] Cvwgyloisi[address] [place], [place] [address]Dr. Ivette David BNPon 03-08-2022 Natriuretic peptide B (Bld) [Mass/Vol] 80859.0 pg/mL Critically high <=900.0 [facility] Comment on above: Performed By: #### B FULL STACK SOFTWARE DEVELOPER, CMP, HSTROPN ####[facility] Swxynsbdnc[address] [place], [place] [address]Dr. Ivette Hernandez CBC AUTO DIFFon 03-08-2022 BASO # 0.0 103/ul Normal 0.0-0.1 [facility] Comment on above: Performed By: #### C BC ####[facility] Suojrzvnwx[address] [place], [place] [address]Dr. Ivette Hernandez Basophils/100 WBC (Bld) 0.4 % Normal 0.2-2.0 [facility] Comment on above: Performed By: #### C BC ####[facility] Kdqskodpgd[address] [place], [place] [address]Dr. Ivette Hernandez EO # 0.3 103/ul Normal 0.0-0.7 [facility] Comment on above: Performed By: #### C BC ####[facility] Yyjgomsqrz2928 [place] [address]Dr. Ivette Hernandez Eosinophils/100 WBC (Bld) 2.5 % Normal 0.9-7.0 [facility] Comment on above: Performed By: #### C BC ####[facility] [address]pejbwngkz[address] [place], [place] [address]Dr. Ivette David Erythrocyte distribution width (RBC) [Ratio] 14.0 % Normal 11.0-15.0 [facility] Comment on above: Performed By: #### C BC ####[facility] Srmpaokegp14[address] [place], [place] [address]Dr. Ivette Hernandez Hematocrit (Bld) [Volume fraction] 29.7 % Critically low 36.0-48.0 [facility] Comment on above: Performed By: #### C BC ####[facility] Y[address]qttkphzo[address] [place], [place] [address]Dr. Ivette Hernandez Hemoglobin (Bld) [Mass/Vol] 9.2 g/dL Critically low 12.0-16.0 [facility] Comment on above: Performed By: #### C BC ####[facility] Fjkuwareyg[address] [place], [place] [address]Dr. Cherjun Hernandez IG # 0.08 10e3/ul Critically high 0.00-0.03 [facility] Comment on above: Performed By: #### C BC ####[facility] Dwaffffyzl8[address] [place], [place] [address]Dr. Cherjun Hernandez IG % 0.8 % Critically high 0.0-0.5 [facility] Comment on above: Performed By: #### C BC ####[facility] Qjheheccgp16[address] [place], [place] [address]Dr. Ivette Hernandez LYMPH # 2.5 103/ul Normal 1.2-3.8 [facility] Comment on above: Performed By: #### C BC ####[facility] Prrfwemztb[address] [place], [place] [address]Dr. Ivette Hernandez Lymphocytes/100 WBC (Bld) 24.8 % Normal 20.5-60.0 [facility] Comment on above: Performed By: #### C BC ####[facility] Sehanpqhsu9430 [place] [address]DrJesse Hernandez MANUAL DIFF REQ NO Normal [facility] Comment on above: Performed By: #### C BC ####[facility] Kmmpwsdsuh9989 [place] [address]Dr. Ivette Hernandez MCH (RBC) [Entitic mass] 28.5 pg Normal 26.7-34.0 [facility] Comment on above: Performed By: #### C BC ####[facility] Ovkckswbbl[address] [place], [place] [address]Dr. Ivette Hernandez MCHC (RBC) [Mass/Vol] 31.0 g/dL Normal 29.9-35.2 [facility] Comment on above: Performed By: #### C BC ####[facility] Xaceqbfchd29[address] [place], [place] [address]Dr. Ivette Hernandez MCV (RBC) [Entitic vol] 92.0 fL Normal 81.0-99.0 [facility] Comment on above: Performed By: #### C BC ####[facility] Mcyfsypnhp[address] [place], [place] [address]DrJesse Hernandez MONO # 0.6 103/ul Normal 0.3-0.8 [facility] Comment on above: Performed By: #### C BC ####[facility] Ejfehgnuvo[address] [place], [place] [address]DrJesse Hernandez Monocytes/100 WBC (Bld) 6.3 % Normal 1.7-12.0 [facility] Comment on above: Performed By: #### C BC ####[facility] [address]tvoknu[address] [place], [place] [address]DrJesse Hernandez NEUT # 6.6 103/ul Critically high 1.4-6.5 [facility] Comment on above: Performed By: #### C BC ####[facility] [address]zaxetjru[address] [place], [place] [address]DrJesse Hernandez Neutrophils/100 WBC (Bld) 65.2 % Normal 43.0-75.0 [facility] Comment on above: Performed By: #### C BC ####[facility] Wmtxkpnsqu4469 [place] [address]Dr. Ivette Hernandez Platelet mean volume (Bld) [Entitic vol] 9.7 fL Normal 9.5-13.5 [facility] Comment on above: Performed By: #### C BC ####[facility] Yntoslgghb4017 [place] [address]Dr. Ivette Hernandez PLT 328 103/ul Normal 150-450 [facility] Comment on above: Performed By: #### C BC ####[facility] [facility] Z[address]bkuqaz[address] [place], [place] [address]Dr. Ivette Hernandez RBC 3.23 106/ul Critically low 4.20-5.40 [facility] Comment on above: Performed By: #### C BC ####[facility] Vceztxgmxd[address] [place], [place] [address]Dr. Ivette Hernandez WBC 10.1 103/ul Normal 4.0-11.0 [facility] Comment on above: Performed By: #### C BC ####[facility] Nwlauyoddq[address] [place], [place] [address]Dr. Ivette Hernandez BASO # 0.0 103/ul Normal 0.0-0.1 [facility] Comment on above: Performed By: #### C BC ####[facility] Fycafclqjz[address] [place], [place] [address]DrJesse Ivette Hernandez Basophils/100 WBC (Bld) 0.4 % Normal 0.2-2.0 [facility] Comment on above: Performed By: #### C BC ####[facility] Obtynewnxb[address] [place], [place] [address]DrJesse Ivette Hernandez EO # 0.2 103/ul Normal 0.0-0.7 [facility] Comment on above: Performed By: #### C BC ####[facility] Xytewkyltc[address] [place], [place] [address]DrJesse Ivette Hernandez Eosinophils/100 WBC (Bld) 2.9 % Normal 0.9-7.0 [facility] Comment on above: Performed By: #### C BC ####[facility] Hhwxtfjfaq364[address] [place] [address]Dr. Ivette Hernandez Erythrocyte distribution width (RBC) [Ratio] 14.2 % Normal 11.0-15.0 [facility] Comment on above: Performed By: #### C BC ####[facility] Kjsmcvibde5024 [place] [address]Dr. Cherjun David Hematocrit (Bld) [Volume fraction] 27.7 % Critically low 36.0-48.0 [facility] Comment on above: Performed By: #### C BC ####[facility] Hlhvxzcdkm[address] [place], [place] [address]Dr. Ivette Hernandez Hemoglobin (Bld) [Mass/Vol] 8.5 g/dL Critically low 12.0-16.0 [facility] Comment on above: Performed By: #### C BC ####[facility] Afcccsbzey[address] [place], [place] [address]Dr. Ivette Hernandez IG # 0.04 10e3/ul Critically high 0.00-0.03 [facility] Comment on above: Performed By: #### C BC ####[facility] Xyeqjrncnn[address] [place], [place] [address]Dr. Ivette Hernandez IG % 0.5 % Normal 0.0-0.5 [facility] Comment on above: Performed By: #### C BC ####[facility] Mcdpdqkqxx5[address] [place], [place] [address]Dr. Ivette Hernandez LYMPH # 2.1 103/ul Normal 1.2-3.8 [facility] Comment on above: Performed By: #### C BC ####[facility] Ozgdymtfdi8712[address] [place], [place] [address]Dr. Ivette Hernandez Lymphocytes/100 WBC (Bld) 27.3 % Normal 20.5-60.0 [facility] Comment on above: Performed By: #### C BC ####[facility] Nwymcpzymu8[address] [place], [place] [address]Dr. Ivette Hernandez MANUAL DIFF REQ NO Normal [facility] Comment on above: Performed By: #### C BC ####[facility] Xuwjomxood0058 [place] [address]Dr. Ivette Hernandez MCH (RBC) [Entitic mass] 28.1 pg Normal 26.7-34.0 [facility] Comment on above: Performed By: #### C BC ####[facility] Xfbeursojd8083 [place] [address]Dr. Ivette Hernandez MCHC (RBC) [Mass/Vol] 30.7 g/dL Normal 29.9-35.2 [facility] Comment on above: Performed By: #### C BC ####[facility] Fedixmgcft[address]50 [place] [address]DrJesse Hernandez MCV (RBC) [Entitic vol] 91.4 fL Normal 81.0-99.0 [facility] Comment on above: Performed By: #### C BC ####[facility] Mmzwsdaruc[address] [place], [place] [address]DrJesse Hernandez MONO # 0.5 103/ul Normal 0.3-0.8 [facility] Comment on above: Performed By: #### C BC ####[facility] Vimrxhvkgx23[address] [place], [place] [address]DrJesse Hernandez Monocytes/100 WBC (Bld) 6.1 % Normal 1.7-12.0 [facility] Comment on above: Performed By: #### C BC ####[facility] Ggbfmohcew6[address] [place], [place] [address]DrJesse Hernandez NEUT # 4.9 103/ul Normal 1.4-6.5 [facility] Comment on above: Performed By: #### C BC ####[facility] X[address]zjtxryt[address] [place], [place] [address]DrJesse Hernandez Neutrophils/100 WBC (Bld) 62.8 % Normal 43.0-75.0 [facility] Comment on above: Performed By: #### C BC ####[facility] Ykiolemb[address] [place], [place] [address]DrJesse Hernandez Platelet mean volume (Bld) [Entitic vol] 9.7 fL Normal 9.5-13.5 [facility] Comment on above: Performed By: #### C BC ####[facility] [address] [place], [place] [address]Km. Ivette Hernandez PLT 227 103/ul Normal 150-450 [facility] Comment on above: Performed By: #### C BC ####[facility] [address] [place], [place] [address]Kx. Ivette Hernandez RBC 3.03 106/ul Critically low 4.20-5.40 [facility] Comment on above: Performed By: #### C BC ####[facility] [address] [place], [place] [address]Wb. Ivette Hernandez WBC 7.8 103/ul Normal 4.0-11.0 [facility] Comment on above: Performed By: #### C BC ####[facility] [address] [place], [place] [address]Cw. Ivette Hernandez CT HEAD WO CONon 03-08-2022 CT HEAD WO CON Normal [facility] CTA HEAD WO W CONon 03-08-20 CTA HEAD WO W CON Normal [facility] Covid-19 PCR ([facility])on SARS-CoV-2 (COVID-19) RNA MARRY+probe Ql (Unsp spec) Not detected Normal NOT DETECTED The [facility] Comment on above: Result Comment: [...] for this test is supported by the [employer] of Health and Human Service's declaration that [...] be used). Performed By: #### C VDTB ####[facility] [address]cp[address] [place] [address]Dr. Ivette Hernandez PROF 14(COMP METB)on 022 Albumin [Mass/Vol] 2.6 g/dL Critically low 3.4-5.0 Th e [facility] Comment on above: Performed By: #### B FULL STACK SOFTWARE DEVELOPER, CMP, HSTROPN ####[facility] [address] [place] [address]Dr. Ivette Hernandez Albumin/Globulin [Mass ratio] 0.6 {ratio} Normal [facility] Comment on above: Performed By: #### B FULL STACK SOFTWARE DEVELOPER, CMP, HSTROPN ####[facility] Myziurxstx[address] [place] [address]Dr. Ivette Hernandez ALP [Catalytic activity/Vol] 68 U/L Normal 46-116 [facility] Comment on above: Performed By: #### B FULL STACK SOFTWARE DEVELOPER, CMP, HSTROPN ####[facility] [address]apgexh[address] [place], [place] [address]Dr. Ivette Hernandez ALT [Catalytic activity/Vol] 16 U/L Normal 14-59 [facility] Comment on above: Performed By: #### B FULL STACK SOFTWARE DEVELOPER, CMP, HSTROPN ####[facility] Oyxbeofvcr40[address] [place] [address]Dr. Ivette Hernandez Anion gap [Moles/Vol] 6.8 mmol/L Normal [facility] Comment on above: Performed By: #### B FULL STACK SOFTWARE DEVELOPER, CMP, HSTROPN ####[facility] [address]fiq[address] [place], [place] [address]Dr. Ivette Hernandez AST [Catalytic activity/Vol] 18 U/L Normal 15-37 [facility] Comment on above: Performed By: #### B FULL STACK SOFTWARE DEVELOPER, CMP, HSTROPN ####[facility] Tq[address]ypmnyr20[address] [place] [address]Dr. Ivette Hernandez Bilirubin [Mass/Vol] 0.5 mg/dL Normal 0.2-1.0 [facility] Comment on above: Performed By: #### B FULL STACK SOFTWARE DEVELOPER, CMP, HSTROPN ####[facility] Pbpxkzgxfp4085 [place] [address]Dr. Ivette Hernandez Calcium [Mass/Vol] 8.2 mg/dL Critically low 8.5-10.1 Th e [facility] Comment on above: Performed By: #### B FULL STACK SOFTWARE DEVELOPER, CMP, HSTROPN ####[facility] Jxychaaieu[address] [place], [place] [address]Dr. Ivette Hernandez Chloride [Moles/Vol] 97 mmol/L Critically low 98-107 [facility] Comment on above: Performed By: #### B FULL STACK SOFTWARE DEVELOPER, CMP, HSTROPN ####[facility] Zpntfdynod[address] [place], [place] [address]Dr. Ivette Hernandez CO2 [Moles/Vol] 37.9 mmol/L Critically high 21.0-32.0 [facility] Comment on above: Performed By: #### B FULL STACK SOFTWARE DEVELOPER, CMP, HSTROPN ####[facility] X[address]uhlqdgd[address] [place], [place] [address]Dr. Ivette Hernandez Creatinine [Mass/Vol] 1.65 mg/dL Critically high 0.55-1.02 [facility] Comment on above: Performed By: #### B FULL STACK SOFTWARE DEVELOPER, CMP, HSTROPN ####[facility] [address]xpjabwob[address] [place] [address]Dr. Ivette Hernandez EGFR-AF [place] 37 mL/min/1.73m2 Critically low >=60 [facility] Comment on above: Performed By: #### B FULL STACK SOFTWARE DEVELOPER, CMP, HSTROPN ####[facility] Z[address] [place], [place] [address]Dr. Ivette Hernandez EGFR-NON AF [place] 30 mL/min/1.73m2 Critically low >=60 The [facility] Comment on above: Performed By: #### B FULL STACK SOFTWARE DEVELOPER, CMP, HSTROPN ####[facility] Jwlvgnnvxz4877 [place] [address]Dr. Ivette Hernandez Globulin (S) [Mass/Vol] 4.7 g/dL Normal [facility] Comment on above: Performed By: #### B FULL STACK SOFTWARE DEVELOPER, CMP, HSTROPN ####[facility] Ajajjjpovl7[address] [place] [address]Dr. Ivette Hernandez Glucose [Mass/Vol] 203 mg/dL Critically high 74-106 [facility] Comment on above: Performed By: #### B FULL STACK SOFTWARE DEVELOPER, CMP, HSTROPN ####[facility] Hpkesdodcu80[address] [place] [address]Dr. Ivette Hernandez Potassium [Moles/Vol] 3.7 mmol/L Normal 3.5-5.1 [facility] Comment on above: Performed By: #### B FULL STACK SOFTWARE DEVELOPER, CMP, HSTROPN ####[facility] Oeyhcylfap6743 [place] [address]Dr. Ivette Hernandez Protein [Mass/Vol] 7.3 g/dL Normal 6.4-8.2 [facility] Comment on above: Performed By: #### B FULL STACK SOFTWARE DEVELOPER, CMP, HSTROPN ####[facility] Srsejiycuw[address] [place], [place] [address]Dr. Ivette Hernandez Sodium [Moles/Vol] 138 mmol/L Normal 136-145 [facility] Comment on above: Performed By: #### B FULL STACK SOFTWARE DEVELOPER, CMP, HSTROPN ####[facility] Bjsmrqmlal[address] [place], [place] [address]Dr. Ivette Hernandez Urea nitrogen [Mass/Vol] 22.0 mg/dL Critically high 7.0-18.0 [facility] Comment on above: Performed By: #### B FULL STACK SOFTWARE DEVELOPER, CMP, HSTROPN ####[facility] [address]gc[address]xrll[address] [place], [place] [address]Dr. Ivette Hernandez Urea nitrogen/Creatinine [Mass ratio] 13.3 mg/mg Normal [facility] Comment on above: Performed By: #### B FULL STACK SOFTWARE DEVELOPER, CMP, HSTROPN ####[facility] [address]uz[address]hozqkk[address] [place], [place] [address]Dr. Ivette Hernandez PROF CHEM 8 (BAS METB)on Anion gap [Moles/Vol] 6.0 mmol/L Normal [facility] Comment on above: Performed By: #### B MP ####[facility] Qpdbjkglcy9986 [place] [address]Dr. Ivette Hernandez Calcium [Mass/Vol] 8.0 mg/dL Critically low 8.5-10.1 Th e [facility] Comment on above: Performed By: #### B MP ####[facility] Tgdyiyczjl7893 [place] [address]Dr. Ivette Hernandez Chloride [Moles/Vol] 98 mmol/L Normal 98-107 [facility] Comment on above: Performed By: #### B MP ####[facility] Xkgywblmck0535 [place] [address]Dr. Ivette David CO2 [Moles/Vol] 39.9 mmol/L Critically high 21.0-32.0 [facility] Comment on above: Performed By: #### B MP ####[facility] K[address]izbjjgv[address] [place], [place] [address]Dr. Ivette Hernandez Creatinine [Mass/Vol] 1.56 mg/dL Critically high 0.55-1.02 [facility] Comment on above: Performed By: #### B MP ####[facility] Azuawjbnun[address] [place], [place] [address]Dr. Ivette David EGFR-AF [place] 39 mL/min/1.73m2 Critically low >=60 [facility] Comment on above: Performed By: #### B MP ####[facility] Kwezzxbgqo[address] [place] [address]Dr. Ivette David EGFR-NON AF [place] 33 mL/min/1.73m2 Critically low >=60 [facility] Comment on above: Performed By: #### B MP ####[facility] Newudaxlqx[address] [place], [place] [address]Dr. Cherjun David Glucose [Mass/Vol] 143 mg/dL Critically high 74-[address] [facility] Comment on above: Performed By: #### B MP ####[facility] S[address]okgjfrj[address] [place], [place] [address]Dr. Ivette Hernandez Potassium [Moles/Vol] 3.9 mmol/L Normal 3.5-5.1 [facility] Comment on above: Performed By: #### B MP ####[facility] Ajcaxmahjn8204 [place] [address]Dr. Ivette Hernandez Sodium [Moles/Vol] 140 mmol/L Normal 136-145 [facility] Comment on above: Performed By: #### B MP ####[facility] Gkydafiuua75[address] [place] [address]Dr. Ivette Hernandez Urea nitrogen [Mass/Vol] 23.0 mg/dL Critically high 7.0-18.0 [facility] Comment on above: Performed By: #### B MP ####[facility] [address]rnguzwzfo[address] [place], [place] [address]Dr. Ivette Hernandez Urea nitrogen/Creatinine [Mass ratio] 14.7 mg/mg Normal [facility] Comment on above: Performed By: #### B MP ####[facility] [address]ngbsuwr[address] [place], [place] [address]Dr. Ivette Hernandez PROTIMEon 03-08-2022 INR Coag (PPP) [Relative time] 1.11 {INR} Normal [facility] Comment on above: Performed By: #### P T, PTT ####[facility] [address]qarkwruiq[address] [place], [place] [address]Dr. Ivette Hernandez INR GUIDELINES SEE BELOW Normal [facility] Comment on above: Result Comment: MELANIE RED INR: 2.0 - 3.0 CONDITIONS NOT LISTED BELOW 2.5 - 3.5 FOR PROSTHETIC HEART VALVE REPLACEMENT 2.5 - 3.5 RECURRENT THROMBOSIS Performed By: #### P T, PTT ####[facility] Rlrkhgkzeo[address] [place], [place] [address]Dr. Ivette Hernandez PT Coag (PPP) [Time] 11.9 s Critically high 9.0-11.6 [facility] Comment on above: Performed By: #### P T, PTT ####[facility] [address]bfvupf[address] [place], [place] [address]Dr. Ivette Hernandez PTTon 03-08-2022 aPTT Coag (Bld) [Time] 29.0 s Normal 22.3-36.2 [facility] Comment on above: Performed By: #### P T, PTT ####[facility] Lqzkbrpuqn49[address] [place] [address]Dr. Ivette Hernandez TROPONIN, HIGH SENSITIVITYon 03-08-2022 HSTROP 74.2 pg/mL Critically high 4.0-51.3 [facility] Comment on above: Result Comment: CUT- OFF POINTS HAVE BEEN ESTABLISHED BASED ON THE FOURTH UNIVERSAL DEFINITIONS OF MYOCARDIALINFARCTION. THE UPPER REFERENCE LIMIT (URL) OF TROPONIN, DEFINED THE 99TH PERCENTILE OFcTnI DISTRIBUTION IN A REFERENCE POPULATION, HAS BEEN CONFIRMED THE DECISION THRESHOLDFOR OR DIAGNOSIS. Performed By: #### B FULL STACK SOFTWARE DEVELOPER, CMP, HSTROPN ####[facility] [address] [place], [place] [address]Dr. Ivette Hernandez XR CHEST 1 Von 03-08-2022 XR CHEST 1 V Normal [facility] CBC AUTO DIFFon 03-07-2022 BASO # 0.0 103/ul Normal 0.0-0.1 [facility] Comment on above: Performed By: #### C BC ####[facility] Djykbvdcjl5152 [place] [address]Dr. Ivette Hernandez Basophils/100 WBC (Bld) 0.5 % Normal 0.2-2.0 [facility] Comment on above: Performed By: #### C BC ####[facility] Mgihyunusa[address] [place], [place] [address]Dr. Ivette Hernandez EO # 0.3 103/ul Normal 0.0-0.7 [facility] Comment on above: Performed By: #### C BC ####[facility] Tbaeugzqjz09[address] [place] [address]Dr. Ivette Hernandez Eosinophils/100 WBC (Bld) 3.9 % Normal 0.9-7.0 [facility] Comment on above: Performed By: #### C BC ####[facility] Nyuedovilv7[address] [place] [address]Dr. Ivette Hernandez Erythrocyte distribution width (RBC) [Ratio] 14.1 % Normal 11.0-15.0 [facility] Comment on above: Performed By: #### C BC ####[facility] Hmnqrtqgjq8516 [place] [address]Dr. Ivette Hernandez Hematocrit (Bld) [Volume fraction] 26.9 % Critically low 36.0-48.0 [facility] Comment on above: Performed By: #### C BC ####[facility] Wttdefxcnh2506 [place] [address]Dr. Ivette Hernandez Hemoglobin (Bld) [Mass/Vol] 8.1 g/dL Critically low 12.0-16.0 [facility] Comment on above: Performed By: #### C BC ####[facility] Qyryffunid6630 [place] [address]Dr. Cherjun David IG # 0.06 10e3/ul Critically high 0.00-0.03 [facility] Comment on above: Performed By: #### C BC ####[facility] Jfhgqttmyv4[address] [place] [address]Dr. Ivette Hernandez IG % 0.8 % Critically high 0.0-0.5 [facility] Comment on above: Performed By: #### C BC ####[facility] Drsbwjwflr6[address] [place] [address]Dr. Ivette Hernandez LYMPH # 1.7 103/ul Normal 1.2-3.8 [facility] Comment on above: Performed By: #### C BC ####[facility] Idkoxzqjbp4093 [place] [address]Dr. Cherjun Hernandez Lymphocytes/100 WBC (Bld) 21.9 % Normal 20.5-60.0 [facility] Comment on above: Performed By: #### C BC ####[facility] Jrnqjcqsco7161 [place] [address]Dr. Cherjun Hernandez MANUAL DIFF REQ NO Normal [facility] Comment on above: Performed By: #### C BC ####[facility] [address]mt[address]xtpjf[address] [place], [place] [address]Dr. Ivette David MCH (RBC) [Entitic mass] 28.2 pg Normal 26.7-34.0 [facility] Comment on above: Performed By: #### C BC ####[facility] [address] [place] [address]Od. Ivette Hernandez MCHC (RBC) [Mass/Vol] 30.1 g/dL Normal 29.9-35.2 [facility] Comment on above: Performed By: #### C BC ####[facility] [address]rmvphbo20[address] [place] [address]Dr. Ivette Hernandez MCV (RBC) [Entitic vol] 93.7 fL Normal 81.0-99.0 [facility] Comment on above: Performed By: #### C BC ####[facility] Sxiupcgmzj2042 [place] [address]Dr. Ivette David MONO # 0.5 103/ul Normal 0.3-0.8 [facility] Comment on above: Performed By: #### C BC ####[facility] [address]clxhdkjlm[address] [place], [place] [address]Dr. Cherjun Hernandez Monocytes/100 WBC (Bld) 6.5 % Normal 1.7-12.0 [facility] Comment on above: Performed By: #### C BC ####[facility] [address]oggdtee[address] [place], [place] [address]Dr. Ivette Hernandez NEUT # 5.3 103/ul Normal 1.4-6.5 [facility] Comment on above: Performed By: #### C BC ####[facility] [address] [place], [place] [address]Dr. Ivette Hernandez Neutrophils/100 WBC (Bld) 66.4 % Normal 43.0-75.0 [facility] Comment on above: Performed By: #### C BC ####[facility] Irmmyavqpd5775 [place] [address]Dr. Ivette Hernandez Platelet mean volume (Bld) [Entitic vol] 9.9 fL Normal 9.5-13.5 [facility] Comment on above: Performed By: #### C BC ####[facility] Uvymcujfvq3209 [place] [address]Dr. Ivette David PLT 229 103/ul Normal 150-450 [facility] Comment on above: Performed By: #### C BC ####[facility] Chsvlnwxqe3131 [place] [address]Dr. Ivette David RBC 2.87 106/ul Critically low 4.20-5.40 [facility] Comment on above: Performed By: #### C BC ####[facility] Dghhxyhfes87[address] [place] [address]Dr. Ivette David WBC 7.9 103/ul Normal 4.0-11.0 [facility] Comment on above: Performed By: #### C BC ####[facility] Riqtbfndjo5019 [place] [address]Dr. Ivette Hernandez PROF CHEM 8 (BAS METB)on Anion gap [Moles/Vol] 2.9 mmol/L Normal [facility] Comment on above: Performed By: #### B MP ####[facility] [address]gmbibns[address] [place], [place] [address]Dr. Ivette Hernandez Calcium [Mass/Vol] 7.5 mg/dL Critically low 8.5-10.1 [facility] Comment on above: Performed By: #### B MP ####[facility] Vjtowrbbml[address] [place], [place] [address]Dr. Ivette Hernandez Chloride [Moles/Vol] 102 mmol/L Normal 98-107 [facility] Comment on above: Performed By: #### B MP ####[facility] Etpfxifglg[address] [place], [place] [address]Dr. Ivette Hernandez CO2 [Moles/Vol] 41.1 mmol/L Critically high 21.0-32.0 [facility] Comment on above: Performed By: #### B MP ####[facility] Hfadzxisap[address] [place], [place] [address]Dr. Ivette Hernandez Creatinine [Mass/Vol] 1.58 mg/dL Critically high 0.55-1.02 [facility] Comment on above: Performed By: #### B MP ####[facility] Esbvmhwmlr7[address] [place], [place] [address]Dr. Ivette Heranndez EGFR-AF [place] 39 mL/min/1.73m2 Critically low >=60 [facility] Comment on above: Performed By: #### B MP ####[facility] Wczypbolbc6[address] [place] [address]Dr. Ivette Hernandez EGFR-NON AF [place] 32 mL/min/1.73m2 Critically low >=60 [facility] Comment on above: Performed By: #### B MP ####[facility] Yeogqcvwta[address] [place] [address]Dr. Ivette Hernandez Glucose [Mass/Vol] 115 mg/dL Critically high 74-106 [facility] Comment on above: Performed By: #### B MP ####[facility] Dwijfxuzcy5805 [place] [address]Dr. Cherjun Hernandez Potassium [Moles/Vol] 4.0 mmol/L Normal 3.5-5.1 [facility] Comment on above: Performed By: #### B MP ####[facility] Dtzafaozla[address] [place] [address]Dr. Ivette Hernandez Sodium [Moles/Vol] 142 mmol/L Normal 136-145 [facility] Comment on above: Performed By: #### B MP ####[facility] Obiitcvrfa9580 [place] [address]Dr. Ivette David Urea nitrogen [Mass/Vol] 23.0 mg/dL Critically high 7.0-18.0 [facility] Comment on above: Performed By: #### B MP ####[facility] Creizvpmwm28[address] [place] [address]Dr. Ivette Hernandez Urea nitrogen/Creatinine [Mass ratio] 14.6 mg/mg Normal [facility] Comment on above: Performed By: #### B MP ####[facility] [address]fp[address] [place], [place] [address]Dr. Cherjun David CBC AUTO DIFFon 03-06-2022 BASO # 0.0 103/ul Normal 0.0-0.1 [facility] Comment on above: Performed By: #### C BC ####[facility] Uhgbotkrsl02[address] [place] [address]Dr. Ivette Hernandez Basophils/100 WBC (Bld) 0.3 % Normal 0.2-2.0 [facility] Comment on above: Performed By: #### C BC ####[facility] Hrkzyoptcy3720 [place] [address]Dr. Ivette Hernandez EO # 0.2 103/ul Normal 0.0-0.7 [facility] Comment on above: Performed By: #### C BC ####[facility] Nwxwpswaoc2602 [place] [address]Dr. Ivette Hernandez Eosinophils/100 WBC (Bld) 2.4 % Normal 0.9-7.0 [facility] Comment on above: Performed By: #### C BC ####[facility] Fzqcusmxxe[address] [place], [place] [address]Dr. Ivette Hernandez Erythrocyte distribution width (RBC) [Ratio] 14.3 % Normal 11.0-15.0 [facility] Comment on above: Performed By: #### C BC ####[facility] Jdzlwqcarj[address] [place], [place] [address]Dr. Ivette Hernandez Hematocrit (Bld) [Volume fraction] 27.2 % Critically low 36.0-48.0 [facility] Comment on above: Performed By: #### C BC ####[facility] Pijnfzklas[address] [place], [place] [address]Dr. Ivette Hernandez Hemoglobin (Bld) [Mass/Vol] 7.8 g/dL Critically low 12.0-16.0 [facility] Comment on above: Performed By: #### C BC ####[facility] Z[address]okrkhvuh[address] [place], [place] [address]Dr. Ivette Hernandez IG # 0.07 10e3/ul Critically high 0.00-0.03 [facility] Comment on above: Performed By: #### C BC ####[facility] Gyxasqnemz[address] [place], [place] [address]Dr. Ivette Hernandez IG % 0.8 % Critically high 0.0-0.5 [facility] Comment on above: Performed By: #### C BC ####[facility] Pkqjcoooal[address] [place], [place] [address]Dr. Ivette Hernandez LYMPH # 1.8 103/ul Normal 1.2-3.8 [facility] Comment on above: Performed By: #### C BC ####[facility] Ciuuenpndt0867 [place] [address]Dr. Cherjun Hernandez Lymphocytes/100 WBC (Bld) 21.2 % Normal 20.5-60.0 [facility] Comment on above: Performed By: #### C BC ####[facility] Qyfvcnndzj3305 [place] [address]Dr. Ivette Hernandez MANUAL DIFF REQ NO Normal [facility] Comment on above: Performed By: #### C BC ####[facility] Amdzavlhug1688 [place] [address]Dr. Ivette Hernandez MCH (RBC) [Entitic mass] 27.6 pg Normal 26.7-34.0 [facility] Comment on above: Performed By: #### C BC ####[facility] Btbgacxdny23[address] [place] [address]Dr. Ivette Hernandez MCHC (RBC) [Mass/Vol] 28.7 g/dL Critically low 29.9-35.2 [facility] Comment on above: Performed By: #### C BC ####[facility] Ftpxgiurah0522 [place] [address]Dr. Ivette Hernandez MCV (RBC) [Entitic vol] 96.1 fL Normal 81.0-99.0 [facility] Comment on above: Performed By: #### C BC ####[facility] Aol[address]vhq[address] [place], [place] [address]Dr. Ivette Hernandez MONO # 0.6 103/ul Normal 0.3-0.8 [facility] Comment on above: Performed By: #### C BC ####[facility] Esopabxxoi2818 [place] [address]Dr. Ivette Hernandez Monocytes/100 WBC (Bld) 6.8 % Normal 1.7-12.0 [facility] Comment on above: Performed By: #### C BC ####[facility] [address] [place], [place] [address]Dr. Ivette Hernandez NEUT # 5.9 103/ul Normal 1.4-6.5 [facility] Comment on above: Performed By: #### C BC ####[facility] Yensujeeqb8981 [place] [address]Dr. Ivette Hernandez Neutrophils/100 WBC (Bld) 68.5 % Normal 43.0-75.0 [facility] Comment on above: Performed By: #### C BC ####[facility] Qwgjnfkdem0827 [place] [address]Dr. Ivette Hernandez Platelet mean volume (Bld) [Entitic vol] 9.9 fL Normal 9.5-13.5 [facility] Comment on above: Performed By: #### C BC ####[facility] Ecjpqydtou44[address] [place] [address]Dr. Ivette Hernandez PLT 193 103/ul Normal 150-450 [facility] Comment on above: Performed By: #### C BC ####[facility] Wvlgnnshux8226 [place] [address]Dr. Ivette Hernandez RBC 2.83 106/ul Critically low 4.20-5.40 [facility] Comment on above: Performed By: #### C BC ####[facility] Vjwpnvaczp3578 [place] [address]Dr. Ivette Hernandez WBC 8.7 103/ul Normal 4.0-11.0 [facility] Comment on above: Performed By: #### C BC ####[facility] Nuiosentil7546 [place] [address]Dr. Ivette Hernandez PROF CHEM 8 (BAS METB)on Anion gap [Moles/Vol] 2.7 mmol/L Normal [facility] Comment on above: Performed By: #### B MP ####[facility] Dgtqlkjgos7523 [place] [address]DrJesse Hernandez Calcium [Mass/Vol] 7.6 mg/dL Critically low 8.5-10.1 [facility] Comment on above: Performed By: #### B MP ####[facility] Qepzgjowem1189 [place] [address]Dr. Ivette Hernandez Chloride [Moles/Vol] 103 mmol/L Normal 98-107 [facility] Comment on above: Performed By: #### B MP ####[facility] Zlkypsrvre9112 [place] [address]Dr. Ivette David CO2 [Moles/Vol] 41.1 mmol/L Critically high 21.0-32.0 [facility] Comment on above: Performed By: #### B MP ####[facility] Rodapwhtio6259 [place] [address]Dr. Cherjun David Creatinine [Mass/Vol] 1.61 mg/dL Critically high 0.55-1.02 [facility] Comment on above: Performed By: #### B MP ####[facility] Pvtegsurwd4143 [place] [address]Dr. Ivette Hernandez EGFR-AF [place] 38 mL/min/1.73m2 Critically low >=60 [facility] Comment on above: Performed By: #### B MP ####[facility] Qzgjwbxvfc4898 [place] [address]Dr. Ivette Hernandez EGFR-NON AF [place] 31 mL/min/1.73m2 Critically low >=60 [facility] Comment on above: Performed By: #### B MP ####[facility] Jnlreambqt3325 [place] [address]Dr. Ivette Hernandez Glucose [Mass/Vol] 124 mg/dL Critically high 74-[address] [facility] Comment on above: Performed By: #### B MP ####[facility] Sbqetdyqzu6134 [place] [address]Dr. Ivette Hernandez Potassium [Moles/Vol] 3.8 mmol/L Normal 3.5-5.1 [facility] Comment on above: Performed By: #### B MP ####[facility] Riidnxyhjb6339 [place] [address]Dr. Ivette Hernandez Sodium [Moles/Vol] 143 mmol/L Normal 136-145 [facility] Comment on above: Performed By: #### B MP ####[facility] Uhlfijjzeg7748 [place] [address]Dr. Ivette Hernandez Urea nitrogen [Mass/Vol] 26.0 mg/dL Critically high 7.0-18.0 [facility] Comment on above: Performed By: #### B MP ####[facility] [address]lqhxobe[address] [place], [place] [address]Dr. Ivette Hernandez Urea nitrogen/Creatinine [Mass ratio] 16.1 mg/mg Normal [facility] Comment on above: Performed By: #### B MP ####[facility] Pbqzyyjkcg[address] [place], [place] [address]Dr. Ivette Hernandez BNPon 03-05-2022 Natriuretic peptide B (Bld) [Mass/Vol] 08086.0 pg/mL Critically high <=900.0 [facility] Comment on above: Performed By: #### H STROPN, BNP, CMP ####[facility] Rbpymdjzue06[address] [place], [place] [address]Dr. Ivette Hernandez CBC AUTO DIFFon 03-05-2022 BASO # 0.0 103/ul Normal 0.0-0.1 [facility] Comment on above: Performed By: #### C BC ####[facility] Igkkctwrvf7[address] [place], [place] [address]Dr. Ivette Hernandez Basophils/100 WBC (Bld) 0.4 % Normal 0.2-2.0 [facility] Comment on above: Performed By: #### C BC ####[facility] Kvzfyijadx6[address] [place] [address]Dr. Ivette Hernandez EO # 0.4 103/ul Normal 0.0-0.7 [facility] Comment on above: Performed By: #### C BC ####[facility] Jtfwkfttjj4[address] [place] [address]Dr. Ivette Hernandez Eosinophils/100 WBC (Bld) 3.1 % Normal 0.9-7.0 [facility] Comment on above: Performed By: #### C BC ####[facility] [address]yerdnuqiv[address] [place], [place] [address]Dr. Ivette Hernandez Erythrocyte distribution width (RBC) [Ratio] 14.5 % Normal 11.0-15.0 [facility] Comment on above: Performed By: #### C BC ####[facility] Kedwvlwkgq92[address] [place] [address]Dr. Ivette Hernandez Hematocrit (Bld) [Volume fraction] 25.3 % Critically low 36.0-48.0 [facility] Comment on above: Performed By: #### C BC ####[facility] Wyipnjjciu2707 [place] [address]Dr. Ivette Hernandez Hemoglobin (Bld) [Mass/Vol] 7.5 g/dL Critically low 12.0-16.0 [facility] Comment on above: Performed By: #### C BC ####[facility] Rweyhdavzm9884 [place] [address]Dr. Ivette Hernandez IG # 0.08 10e3/ul Critically high 0.00-0.03 [facility] Comment on above: Performed By: #### C BC ####[facility] Hjyxbrgtbv3377 [place] [address]Dr. Ivette Hernandez IG % 0.7 % Critically high 0.0-0.5 [facility] Comment on above: Performed By: #### C BC ####[facility] Pjufjkicgk1325 [place] [address]Dr. Ivette Hernandez LYMPH # 1.7 103/ul Normal 1.2-3.8 [facility] Comment on above: Performed By: #### C BC ####[facility] Omcbapgysl0690 [place] [address]Dr. Ivette eHrnandez Lymphocytes/100 WBC (Bld) 14.7 % Critically low 20.5-60.0 [facility] Comment on above: Performed By: #### C BC ####[facility] Aouzuyagbg4978 [place] [address]Dr. Cherjun Hernandez MANUAL DIFF REQ NO Normal [facility] Comment on above: Performed By: #### C BC ####[facility] [address]xxhrkhw[address] [place], [place] [address]Dr. Cherjun Hernandez MCH (RBC) [Entitic mass] 27.9 pg Normal 26.7-34.0 [facility] Comment on above: Performed By: #### C BC ####[facility] Qedodcrtqd9674 [place] [address]Dr. Ivette Hernandez MCHC (RBC) [Mass/Vol] 29.6 g/dL Critically low 29.9-35.2 [facility] Comment on above: Performed By: #### C BC ####[facility] Uvxjrnfbum9586 [place] [address]Dr. Ivette Hernandez MCV (RBC) [Entitic vol] 94.1 fL Normal 81.0-99.0 [facility] Comment on above: Performed By: #### C BC ####[facility] Jjgkirnkjo4865 [place] [address]Dr. Ivette Hernandez MONO # 0.9 103/ul Critically high 0.3-0.8 [facility] Comment on above: Performed By: #### C BC ####[facility] Pkacwpwmsm1848 [place] [address]Dr. Cherjun Hernandez Monocytes/100 WBC (Bld) 7.7 % Normal 1.7-12.0 [facility] Comment on above: Performed By: #### C BC ####[facility] Dsnyxsljgy6433 [place] [address]Dr. Ivette Hernandez NEUT # 8.3 103/ul Critically high 1.4-6.5 [facility] Comment on above: Performed By: #### C BC ####[facility] Nsxqsyzeue7905 [place] [address]Dr. Ivette Hernandez Neutrophils/100 WBC (Bld) 73.4 % Normal 43.0-75.0 [facility] Comment on above: Performed By: #### C BC ####[facility] Plsgnvhamt3861 [place] [address]Dr. Ivette Hernandez Platelet mean volume (Bld) [Entitic vol] 9.8 fL Normal 9.5-13.5 [facility] Comment on above: Performed By: #### C BC ####[facility] Fvujmcoxzj2280 [place] [address]Dr. Ivette David PLT 256 103/ul Normal 150-450 [facility] Comment on above: Performed By: #### C BC ####[facility] Dr[address]ft[address] [place], [place] [address]Em. Ivette Hernandez RBC 2.69 106/ul Critically low 4.20-5.40 [facility] Comment on above: Performed By: #### C BC ####[facility] U[address]weoed[address] [place], [place] [address]Jf. Ivette Hernandez WBC 11.3 103/ul Critically high 4.0-11.0 [facility] Comment on above: Performed By: #### C BC ####[facility] W[address]lnwrn[address] [place], [place] [address]Dl. Ivette Hernandez Covid-19 PCR (CVDTB)on SARS-CoV-2 (COVID-19) RNA MARRY+probe Ql (Unsp spec) Not detected Normal NOT DETECTED [facility] Comment on above: Result Comment: [...] for this test is supported by the [employer] of Health and Human Service's declaration that [...] be used). Performed By: #### C VDTBH ####[facility] [address]ylrdvo[address] [place], [place] [address]Fx. Ivette David LACTATE/LACTIC ACIDon 2021 Lactate [Moles/Vol] 0.6 mmol/L Normal 0.4-1.9 [facility] [place] Comment on above: Performed By: #### L ACT ####[facility] Romkhvcepu5052 [place] [address]Dr. Ivette Hernandez PROF 14(COMP METB)on 022 Albumin [Mass/Vol] 2.3 g/dL Critically low 3.4-5.0 [facility] Comment on above: Performed By: #### H STROPN, BNP, CMP ####[facility] Qjaxhqyydo9167 [place] [address]Dr. Ivette Hernandez Albumin/Globulin [Mass ratio] 0.5 {ratio} Normal [facility] Comment on above: Performed By: #### H STROPN, BNP, CMP ####[facility] Uzulbogojz4563 [place] [address]Dr. Ivette Hernandez ALP [Catalytic activity/Vol] 72 U/L Normal 46-116 [facility] Comment on above: Performed By: #### H STROPN, BNP, CMP ####[facility] Tsurmlhtnm[address] [place], [place] [address]Dr. Ivette Hernandez ALT [Catalytic activity/Vol] 15 U/L Normal 14-59 [facility] Comment on above: Performed By: #### H STROPN, BNP, CMP ####[facility] [address]jwseexd[address] [place], [place] [address]Dr. Ivette Hernandez Anion gap [Moles/Vol] 5.3 mmol/L Normal [facility] Comment on above: Performed By: #### H STROPN, BNP, CMP ####[facility] [address]ugeqqbpbq[address] [place], [place] [address]Dr. Ivette Hernandez AST [Catalytic activity/Vol] 16 U/L Normal 15-37 [facility] Comment on above: Performed By: #### H STROPN, BNP, CMP ####[facility] Bwrehgdxgo[address] [place], [place] [address]Dr. Ivette Hernandez Bilirubin [Mass/Vol] 0.5 mg/dL Normal 0.2-1.0 [facility] Comment on above: Performed By: #### H STROPN, BNP, CMP ####[facility] Zkthswejum[address] [place], [place] [address]Dr. Ivette Hernandez Calcium [Mass/Vol] 7.8 mg/dL Critically low 8.5-10.1 [facility] Comment on above: Performed By: #### H STROPN, BNP, CMP ####[facility] Uzhcjjqohw3569 [place] [address]Dr. Ivette Hernandez Chloride [Moles/Vol] 102 mmol/L Normal 98-107 [facility] Comment on above: Performed By: #### H STROPN, BNP, CMP ####[facility] Nhdxeztbdv7091 [place] [address]Dr. Ivette Hernandez CO2 [Moles/Vol] 38.3 mmol/L Critically high 21.0-32.0 [facility] Comment on above: Performed By: #### H STROPN, BNP, CMP ####[facility] [address]ugalndtmr[address] [place], [place] [address]Dr. Ivette Hernandez Creatinine [Mass/Vol] 1.50 mg/dL Critically high 0.55-1.02 [facility] Comment on above: Performed By: #### H STROPN, BNP, CMP ####[facility] [address]doaqtldm[address] [place], [place] [address]Dr. Ivette Hernandez EGFR-AF [place] 41 mL/min/1.73m2 Critically low >=60 [facility] Comment on above: Performed By: #### H STROPN, BNP, CMP ####[facility] Zrmmjlovvh[address] [place], [place] [address]Dr. Ivette Hernandez EGFR-NON AF [place] 34 mL/min/1.73m2 Critically low >=60 [facility] Comment on above: Performed By: #### H STROPN, BNP, CMP ####[facility] Woenuivfte6075 [place] [address]Dr. Ivette Hernandez Globulin (S) [Mass/Vol] 4.3 g/dL Normal [facility] Comment on above: Performed By: #### H STROPN, BNP, CMP ####[facility] [address]avzup[address] [place], [place] [address]Dr. Ivette Hernandez Glucose [Mass/Vol] 138 mg/dL Critically high 74-[address] [facility] Comment on above: Performed By: #### H STROPN, BNP, CMP ####[facility] Nhpjwjkkva0692 [place] [address]Dr. Ivette Hernandez Potassium [Moles/Vol] 3.6 mmol/L Normal 3.5-5.1 [facility] Comment on above: Performed By: #### H STROPN, BNP, CMP ####[facility] Ycoormagyg2502 [place] [address]Dr. Ivette Hernandez Protein [Mass/Vol] 6.6 g/dL Normal 6.4-8.2 [facility] Comment on above: Performed By: #### H STROPN, BNP, CMP ####[facility] Ooyngscbql2508 [place] [address]Dr. Ivette Hernandez Sodium [Moles/Vol] 142 mmol/L Normal 136-145 [facility] Comment on above: Performed By: #### H STROPN, BNP, CMP ####[facility] Bzcfegjrcn0772 [place] [address]Dr. Ivette Hernandez Urea nitrogen [Mass/Vol] 24.0 mg/dL Critically high 7.0-18.0 [facility] Comment on above: Performed By: #### H STROPN, BNP, CMP ####[facility] Rfjjghmlol5922 [place] [address]Dr. Ivette Hernandez Urea nitrogen/Creatinine [Mass ratio] 16.0 mg/mg Normal [facility] Comment on above: Performed By: #### H STROPN, BNP, CMP ####[facility] Mscfbrjzaq55[address] [place] [address]Dr. Ivette Hernandez TROPONIN, HIGH SENSITIVITYon 03-05-2022 HSTROP 18.0 pg/mL Normal 4.0-51.3 [facility] Comment on above: Result Comment: CUT- OFF POINTS HAVE BEEN ESTABLISHED BASED ON THE FOURTH UNIVERSAL DEFINITIONS OF MYOCARDIALINFARCTION. THE UPPER REFERENCE LIMIT (URL) OF TROPONIN, DEFINED THE 99TH PERCENTILE OFcTnI DISTRIBUTION IN A REFERENCE POPULATION, HAS BEEN CONFIRMED THE DECISION THRESHOLDFOR OR DIAGNOSIS. Performed By: #### H STROPN, BNP, CMP ####[facility] [address] [place], [place] [address]Dr. Ivette Hernandez XR CHEST 1 Von 03-05-2022 XR CHEST 1 V Normal [facility] CBC AUTO DIFFon 02-27-2022 BASO # 0.0 103/ul Normal 0.0-0.1 [facility] Comment on above: Performed By: #### C BC ####[facility] Pdacodwmfw27[address] [place] [id number]. Ivette Hernandez Basophils/100 WBC (Bld) 0.2 % Normal 0.2-2.0 [facility] Comment on above: Performed By: #### C BC ####[facility] Yezyuwhmef[address] [place] [address]Dr. Ivette Hernandez EO # 0.2 103/ul Normal 0.0-0.7 [facility] Comment on above: Performed By: #### C BC ####[facility] Aqumtesqox[address] [place] [address]Dr. Ivette Hernandez Eosinophils/100 WBC (Bld) 1.9 % Normal 0.9-7.0 [facility] Comment on above: Performed By: #### C BC ####[facility] Quwtlooztu[address] [place], [place] [address]Dr. Ivette Hernandez Erythrocyte distribution width (RBC) [Ratio] 14.0 % Normal 11.0-15.0 [facility] Comment on above: Performed By: #### C BC ####[facility] Zxeajudowy[address] [place] [address]Dr. Ivette Hernandez Hematocrit (Bld) [Volume fraction] 28.7 % Critically low 36.0-48.0 [facility] Comment on above: Performed By: #### C BC ####[facility] Xleaghywdj23[address] [place] [address]Dr. Ivette Hernandez Hemoglobin (Bld) [Mass/Vol] 8.8 g/dL Critically low 12.0-16.0 [facility] Comment on above: Performed By: #### C BC ####[facility] Gwoqmdaabz[address] [place] [address]Dr. Ivette Hernandez IG # 0.05 10e3/ul Critically high 0.00-0.03 [facility] Comment on above: Performed By: #### C BC ####[facility] Glyvtpuage5960 [place] [address]Dr. Ivette Hernandez IG % 0.5 % Normal 0.0-0.5 [facility] Comment on above: Performed By: #### C BC ####[facility] Lhskbviqmj9015 [place] [address]Dr. Ivette Hernandez LYMPH # 2.1 103/ul Normal 1.2-3.8 [facility] Comment on above: Performed By: #### C BC ####[facility] Qjmwwwzpfw7364 [place] [address]Dr. Ivette David Lymphocytes/100 WBC (Bld) 21.3 % Normal 20.5-60.0 [facility] Comment on above: Performed By: #### C BC ####[facility] Yztlyxcuub2059 [place] [address]Dr. Cherjun Hernandez MANUAL DIFF REQ NO Normal [facility] Comment on above: Performed By: #### C BC ####[facility] Bcxxlgsloa3939 [place] [address]Dr. Ivette Hernandez MCH (RBC) [Entitic mass] 27.6 pg Normal 26.7-34.0 [facility] Comment on above: Performed By: #### C BC ####[facility] Fssavrcqoc7366 [place] [address]Dr. Ivette Hernandez MCHC (RBC) [Mass/Vol] 30.7 g/dL Normal 29.9-35.2 [facility] Comment on above: Performed By: #### C BC ####[facility] Vqryygnqky1683 [place] [address]Dr. Ivette Hernandez MCV (RBC) [Entitic vol] 90.0 fL Normal 81.0-99.0 [facility] Comment on above: Performed By: #### C BC ####[facility] Wkrjynsvyr7747 [place] [address]Dr. Cherjun David MONO # 0.6 103/ul Normal 0.3-0.8 [facility] Comment on above: Performed By: #### C BC ####[facility] Uwgjktnvjx3012 [place] [address]Dr. Ivette Hernandez Monocytes/100 WBC (Bld) 6.5 % Normal 1.7-12.0 [facility] Comment on above: Performed By: #### C BC ####[facility] Xgemdikani9262 [place] [address]Dr. Ivette Hernandez NEUT # 6.7 103/ul Critically high 1.4-6.5 [facility] Comment on above: Performed By: #### C BC ####[facility] Axdsaitucb8494 [place] [address]Dr. Ivette Hernandez Neutrophils/100 WBC (Bld) 69.6 % Normal 43.0-75.0 [facility] Comment on above: Performed By: #### C BC ####[facility] Bfejobjlsz3278 [place] [address]Dr. Ivette Hernandez Platelet mean volume (Bld) [Entitic vol] 9.6 fL Normal 9.5-13.5 [facility] Comment on above: Performed By: #### C BC ####[facility] Swfkekdbrd0642 [place] [address]Dr. Ivette Hernandez PLT 236 103/ul Normal 150-450 [facility] Comment on above: Performed By: #### C BC ####[facility] Kdqdvsnrts2801 [place] [address]Dr. Ivette Hernandez RBC 3.19 106/ul Critically low 4.20-5.40 [facility] Comment on above: Performed By: #### C BC ####[facility] [address] [place], [place] [address]Dr. Ivette Hernandez WBC 9.6 103/ul Normal 4.0-11.0 [facility] Comment on above: Performed By: #### C BC ####[facility] Iipzgvusgf1396 [place] [address]Dr. Ivette Hernandez GI PANEL (PCR)on 02-27-2022 Adenovirus F 40/41 Not detected Normal NOT DETECTED [facility] Comment on above: Performed By: #### G IPANEL ####[facility] Jszbddekwz2323 [place] [address]Dr. Ivette Hernandez Astrovirus Not detected Normal NOT DETECTED [facility] Comment on above: Performed By: #### G IPANEL ####[facility] Idfvnzfbef[address] [place], [place] [address]Dr. Ivette Hernandez C. Diff toxin A/B Detected Critically abnormal NOT DETECTED [facility] Comment on above: Performed By: #### G IPANEL ####[facility] Nvkuntbjmy[address] [place], [place] [address]Dr. Ivette Hernandez Campylobacter Not detected Normal NOT DETECTED [facility] Comment on above: Performed By: #### G IPANEL ####[facility] Zxhpsxlyye[address] [place], [place] [address]Dr. Ivette Hernandez Cryptosporidium Not detected Normal NOT DETECTED [facility] Comment on above: Performed By: #### G IPANEL ####[facility] Bxivswpwlk[address] [place], [place] [address]Dr. Ivette Hernandez Cyclos. Cayetanensis Not detected Normal NOT DETECTED [facility] Comment on above: Performed By: #### G IPANEL ####[facility] Jwqeozlutm8[address] [place], [place] [address]Dr. Ivette Hernandez E. Coli O157 Not Applicable Normal Not Applicable [facility] Comment on above: Performed By: #### G IPANEL ####[facility] Ycplytbsgf[address] [place], [place] [address]Dr. Ivette Hernandez E. histolytica Not detected Normal NOT DETECTED [facility] Comment on above: Performed By: #### G IPANEL ####[facility] Uvhgykubce09[address] [place], [place] [address]Dr. Ivette Hernandez EAEC Not detected Normal NOT DETECTED [facility] Comment on above: Performed By: #### G IPANEL ####[facility] Cgkvqwbkpi[address] [place], [place] [address]Dr. Ivette Hernandez EIEC Not detected Normal NOT DETECTED [facility] Comment on above: Performed By: #### G IPANEL ####[facility] Mqnemzoveo[address] [place], [place] [address]Dr. Ivette Hernandez EPEC Not detected Normal NOT DETECTED [facility] Comment on above: Performed By: #### G IPANEL ####[facility] Ndwtclcuhy70[address] [place], [place] [address]Dr. Cherjun David ETEC Not detected Normal NOT DETECTED [facility] Comment on above: Performed By: #### G IPANEL ####[facility] Xidymkdixm[address] [place], [place] [address]Dr. Ivette Hernandez G. Lamblia Not detected Normal NOT DETECTED [facility] Comment on above: Performed By: #### G IPANEL ####[facility] Guffjopakz[address] [place] [address]Dr. Ivette Hernandez GIPANEL CONTROLS PASSED Normal [facility] Comment on above: Performed By: #### G IPANEL ####[facility] Wapckhqzvo7[address] [place], [place] [address]Dr. Ivette BRUMFIELDNL GITA HEADER GI PANEL BACTERIA Normal [facility] Comment on above: Performed By: #### G IPANEL ####[facility] Bmyxayiwqn[address] [place], [place] [address]Dr. Ivette Hernandez GIPNLHD ECOLI GI PANEL DIARRHEAGEN IC E.COLI / SHIGELLA Normal [facility] Comment on above: Performed By: #### G IPANEL ####[facility] Txnwuzkfqi[address] [place], [place] [address]Dr. Ivette Hernandez GIPNLHD INFO SEE BELOW Normal [facility] Comment on above: Result Comment: EAEC - Enteroaggregative E. Coli EPEC- Enteropathogenic E. Coli ETEC- Enterotoxigenic E. Coli lt/st STEC- Shigella-like toxin-producing E. Coli stx1/stx2 EIEC- Shigella/Enteroinvasive E. Coli Performed By: #### G IPANEL ####[facility] Obumkohwoe[address] [place], [place] [address]Dr. Yijun Hernandez GIPNLHD PARASITES GI PANEL PARASITES Normal [facility] Comment on above: Performed By: #### G IPANEL ####[facility] [address]ysvylk[address] [place], [place] [address]Dr. Ivette Hernandez GIPNLHD VIRUS GI PANEL VIRUSES Normal [facility] Comment on above: Performed By: #### G IPANEL ####[facility] Hhiarbijbe4[address] [place], [place] [address]Dr. Ivette Hernandez Norovirus GI/GII Not detected Normal NOT DETECTED [facility] Comment on above: Performed By: #### G IPANEL ####[facility] Tkiedbtult6[address] [place], [place] [address]Dr. Ivette Hernandez P. Shigelloides Not detected Normal NOT DETECTED [facility] Comment on above: Performed By: #### G IPANEL ####[facility] Zervkcxafw[address] [place], [place] [address]Dr. Ivette Hernandez Rotavirus A Not detected Normal NOT DETECTED [facility] Comment on above: Performed By: #### G IPANEL ####[facility] Hpubqervtn7[address] [place], [place] [address]Dr. Ivette Hernandez Salmonella Not detected Normal NOT DETECTED [facility] Comment on above: Performed By: #### G IPANEL ####[facility] Wizazcwlrz98[address] [place], [place] [address]Dr. Ivette Hernandez Sapovirus Not detected Normal NOT DETECTED [facility] Comment on above: Performed By: #### G IPANEL ####[facility] Bokxbvvfye88[address] [place], [place] [address]Dr. Ivette Hernandez STEC Not detected Normal NOT DETECTED [facility] Comment on above: Performed By: #### G IPANEL ####[facility] Fpmzbgjjkq[address] [place], [place] [address]Dr. Ivette Hernandez Vibrio Not detected Normal NOT DETECTED [facility] Comment on above: Performed By: #### G IPANEL ####[facility] Wmimaxkbow360[address] [place] [address]Dr. Ivette Hernandez Vibrio Cholera Not detected Normal NOT DETECTED [facility] Comment on above: Performed By: #### G IPANEL ####[facility] Prlpnrrfkv7[address] [place], [place] [address]Dr. Ivette Hernandez Y. Enterocolitica Not detected Normal NOT DETECTED [facility] Comment on above: Performed By: #### G IPANEL ####[facility] Klkuyeuxmx6[address] [place] [address]Dr. Ivette Hernandez OCC BLD IMMUNO SCREENon 02-01 OCCULT BLOOD Negative Normal NEGATIVE [facility] Comment on above: Performed By: #### O BSCRN ####[facility] Yupouprxrz6114 [place] [address]Dr. Ivette Hernandez PROF 14(COMP METB)on 022 Albumin [Mass/Vol] 2.4 g/dL Critically low 3.4-5.0 [facility] Comment on above: Performed By: #### C MP ####[facility] Hckjagcpqp[address] [place], [place] [address]Dr. Ivette Hernandez Albumin/Globulin [Mass ratio] 0.6 {ratio} Normal [facility] Comment on above: Performed By: #### C MP ####[facility] Mpvolwrozs[address] [place], [place] [address]Dr. Ivette Hernandez ALP [Catalytic activity/Vol] 68 U/L Normal 46-116 [facility] Comment on above: Performed By: #### C MP ####[facility] Zlmryevlhq[address] [place], [place] [address]Dr. Ivette Hernandez ALT [Catalytic activity/Vol] 12 U/L Critically low 14-59 [facility] Comment on above: Performed By: #### C MP ####[facility] Stnnhkoswr20[address] [place], [place] [address]Dr. Ivette Hernandez Anion gap [Moles/Vol] 10.3 mmol/L Normal [facility] Comment on above: Performed By: #### C MP ####[facility] Duypcurodl99[address] [place], [place] [address]Dr. Ivette Hernandez AST [Catalytic activity/Vol] 15 U/L Normal 15-37 [facility] Comment on above: Performed By: #### C MP ####[facility] Ymeboqtpsm20[address] [place], [place] [address]Dr. Ivette Hernandez Bilirubin [Mass/Vol] 0.4 mg/dL Normal 0.2-1.0 [facility] Comment on above: Performed By: #### C MP ####[facility] Brqhkytlay0481 [place] [address]Dr. Ivette Hernandez Calcium [Mass/Vol] 7.5 mg/dL Critically low 8.5-10.1 [facility] Comment on above: Performed By: #### C MP ####[facility] Yjpwwlbjoj9660 [place] [address]Dr. Ivette Hernandez Chloride [Moles/Vol] 102 mmol/L Normal 98-107 [facility] Comment on above: Performed By: #### C MP ####[facility] Qymdpmnwjo9907 [place] [address]Dr. Ivette Hernandez CO2 [Moles/Vol] 33.8 mmol/L Critically high 21.0-32.0 [facility] Comment on above: Performed By: #### C MP ####[facility] Ybhnnmsuwo[address] [place], [place] [address]Dr. Ivette Hernandez Creatinine [Mass/Vol] 1.35 mg/dL Critically high 0.55-1.02 [facility] Comment on above: Performed By: #### C MP ####[facility] Ygjnmensqs[address] [place], [place] [address]Dr. Ivette Hernandez EGFR-AF [place] 47 mL/min/1.73m2 Critically low >=60 [facility] Comment on above: Performed By: #### C MP ####[facility] M[address]xqxhdzds[address] [place] [address]Dr. Ivette Hernandez EGFR-NON AF [place] 38 mL/min/1.73m2 Critically low >=60 [facility] Comment on above: Performed By: #### C MP ####[facility] Eodbwwpolt[address] [place], [place] [address]Dr. Ivette Hernandez Globulin (S) [Mass/Vol] 4.0 g/dL Normal [facility] Comment on above: Performed By: #### C MP ####[facility] Aeqbjgbxww[address] [place], [place] [address]Dr. Ivette David Glucose [Mass/Vol] 142 mg/dL Critically high 74-106 [facility] Comment on above: Performed By: #### C MP ####[facility] Fzcfvvjwtw2266 [place] [address]Dr. Ivette Hernandez Potassium [Moles/Vol] 3.1 mmol/L Critically low 3.5-5.1 [facility] Comment on above: Performed By: #### C MP ####[facility] Nuidclkfft4662 [place] [address]Dr. Ivette David Protein [Mass/Vol] 6.4 g/dL Normal 6.4-8.2 [facility] Comment on above: Performed By: #### C MP ####[facility] Ptyobwfqdf[address] [place], [place] [address]Dr. Ivette David Sodium [Moles/Vol] 143 mmol/L Normal 136-145 [facility] Comment on above: Performed By: #### C MP ####[facility] Zjktuzxrle226[address] [place], [place] [address]Dr. Ivette David Urea nitrogen [Mass/Vol] 32.0 mg/dL Critically high 7.0-18.0 [facility] Comment on above: Performed By: #### C MP ####[facility] Gpigsorkiz[address] [place], [place] [address]Dr. Ivette David Urea nitrogen/Creatinine [Mass ratio] 23.7 mg/mg Normal [facility] Comment on above: Performed By: #### C MP ####[facility] [address] [place], [place] [address]Dr. Ivette David CBC AUTO DIFFon 02-26-2022 BASO # 0.0 103/ul Normal 0.0-0.1 [facility] Comment on above: Performed By: #### C BC ####[facility] Ybbskfrihk6712 [place] [address]Dr. Ivette David Basophils/100 WBC (Bld) 0.0 % Critically low 0.2-2.0 [facility] Comment on above: Performed By: #### C BC ####[facility] [address]ehfksonef[address] [place], [place] [address]Dr. Ivette Hernandez EO # 0.0 103/ul Normal 0.0-0.7 [facility] Comment on above: Performed By: #### C BC ####[facility] Dbnsaabviv9710 [place] [address]Dr. Ivette Hernandez Eosinophils/100 WBC (Bld) 0.0 % Critically low 0.9-7.0 [facility] Comment on above: Performed By: #### C BC ####[facility] Olwpmdcbny8710 [place] [address]Dr. Ivette Hernandez Erythrocyte distribution width (RBC) [Ratio] 13.9 % Normal 11.0-15.0 [facility] Comment on above: Performed By: #### C BC ####[facility] Pagxmxuhnl[address] [place], [place] [address]Dr. Ivette Hernandez Hematocrit (Bld) [Volume fraction] 25.9 % Critically low 36.0-48.0 [facility] Comment on above: Performed By: #### C BC ####[facility] Uqoljgxowx[address] [place], [place] [address]Dr. Ivette Hernandez Hemoglobin (Bld) [Mass/Vol] 8.2 g/dL Critically low 12.0-16.0 [facility] Comment on above: Performed By: #### C BC ####[facility] Cixvvwrzch[address] [place], [place] [address]Dr. Ivette Hernandez IG # 0.05 10e3/ul Critically high 0.00-0.03 [facility] Comment on above: Performed By: #### C BC ####[facility] Vkslmdgzit7[address] [place], [place] [address]Dr. Ivette Hernandez IG % 0.9 % Critically high 0.0-0.5 [facility] Comment on above: Performed By: #### C BC ####[facility] Fwlnuvxcos[address] [place], [place] [address]DrJesse Ivette David LYMPH # 1.0 103/ul Critically low 1.2-3.8 [facility] Comment on above: Performed By: #### C BC ####[facility] Fofuflyjqt[address] [place] [address]Dr. Ivette David Lymphocytes/100 WBC (Bld) 17.4 % Critically low 20.5-60.0 [facility] Comment on above: Performed By: #### C BC ####[facility] Ppadtsujid3642 [place] [address]DrJesse Hernandez MANUAL DIFF REQ NO Normal [facility] Comment on above: Performed By: #### C BC ####[facility] Jylradpgek2871 [place] [address]DrJesse Hernandez MCH (RBC) [Entitic mass] 28.3 pg Normal 26.7-34.0 [facility] Comment on above: Performed By: #### C BC ####[facility] Papzvfauzb[address] [place], [place] [address]DrJesse Hernandez MCHC (RBC) [Mass/Vol] 31.7 g/dL Normal 29.9-35.2 [facility] Comment on above: Performed By: #### C BC ####[facility] Dhdqwxwuhk[address] [place], [place] [address]DrJesse Hernandez MCV (RBC) [Entitic vol] 89.3 fL Normal 81.0-99.0 [facility] Comment on above: Performed By: #### C BC ####[facility] [address]wyejotnt[address] [place], [place] [address]DrJesse Hernandez MONO # 0.2 103/ul Critically low 0.3-0.8 [facility] Comment on above: Performed By: #### C BC ####[facility] Zoyohhyqqj[address] [place], [place] [address]DrJesse Hernandez Monocytes/100 WBC (Bld) 3.6 % Normal 1.7-12.0 [facility] Comment on above: Performed By: #### C BC ####[facility] Nobactkdxo[address] [place] [address]DrJesse Hernandez NEUT # 4.6 103/ul Normal 1.4-6.5 [facility] Comment on above: Performed By: #### C BC ####[facility] Rpeesuewtz[address] [place] [address]DrJesse Hernandez Neutrophils/100 WBC (Bld) 78.1 % Critically high 43.0-75.0 [facility] Comment on above: Performed By: #### C BC ####[facility] [address]ipfsdt[address] [place] [id number]. Cherjun David Platelet mean volume (Bld) [Entitic vol] 9.5 fL Normal 9.5-13.5 [facility] Comment on above: Performed By: #### C BC ####[facility] Uovpeyldbm[address] [place] [address]Dr. Ivette Hernandez PLT 195 103/ul Normal 150-450 [facility] Comment on above: Performed By: #### C BC ####[facility] Dckvsntvvl0535 [place] [address]Dr. Ivette Hernandez RBC 2.90 106/ul Critically low 4.20-5.40 [facility] Comment on above: Performed By: #### C BC ####[facility] Lmypypreon0117 [place] [address]Dr. Ivette Hernandez WBC 5.8 103/ul Normal 4.0-11.0 [facility] Comment on above: Performed By: #### C BC ####[facility] Ukneuxbzsw2690 [place] [address]Dr. Ivette Hernandez ECHOCARDIO M/2D COMPLETEon 1 ECHOCARDIO M/2D COMPLETE Normal [facility] PROF 14(COMP METB)on 022 Albumin [Mass/Vol] 2.3 g/dL Critically low 3.4-5.0 [facility] Comment on above: Performed By: #### C MP ####[facility] Fkhxobhyiq6267 [place] [address]Dr. Ivette Hernandez Albumin/Globulin [Mass ratio] 0.6 {ratio} Normal [facility] Comment on above: Performed By: #### C MP ####[facility] Eaopoioeuw2264 [place] [address]Dr. Ivette Hernandez ALP [Catalytic activity/Vol] 67 U/L Normal 46-116 [facility] Comment on above: Performed By: #### C MP ####[facility] Xzsqrhbvkw9291 [place] [address]Dr. Ivette Hernandez ALT [Catalytic activity/Vol] 15 U/L Normal 14-59 [facility] Comment on above: Performed By: #### C MP ####[facility] Bsyulmyqyn3957 [place] [address]Dr. Ivette Hernandez Anion gap [Moles/Vol] 7.6 mmol/L Normal [facility] Comment on above: Performed By: #### C MP ####[facility] Dwuygrjjxs0155 [place] [address]Dr. Ivette Hernandez AST [Catalytic activity/Vol] 12 U/L Critically low 15-37 [facility] Comment on above: Performed By: #### C MP ####[facility] Dtbaesdcmk7263 [place] [address]Dr. Ivette Hernandez Bilirubin [Mass/Vol] 0.3 mg/dL Normal 0.2-1.0 [facility] Comment on above: Performed By: #### C MP ####[facility] Swzdgfpwpf[address] [place], [place] [address]Dr. Ivette Hernandez Calcium [Mass/Vol] 6.3 mg/dL Critically low 8.5-10.1 [facility] Comment on above: Performed By: #### C MP ####[facility] Ohgxcf[address] [place], [place] [address]Dr. Ivette Heranndez Chloride [Moles/Vol] 104 mmol/L Normal 98-107 [facility] Comment on above: Performed By: #### C MP ####[facility] Sxbzrjrmlc8949 [place] [address]Dr. Ivette Hernandez CO2 [Moles/Vol] 34.8 mmol/L Critically high 21.0-32.0 [facility] Comment on above: Performed By: #### C MP ####[facility] Xuxgthvozo[address] [place], [place] [address]Dr. Ivette Hernandez Creatinine [Mass/Vol] 1.30 mg/dL Critically high 0.55-1.02 [facility] Comment on above: Performed By: #### C MP ####[facility] Rwmlglchsl8807 [place] [address]Dr. Ivette Hernandez EGFR-AF [place] 49 mL/min/1.73m2 Critically low >=60 [facility] Comment on above: Performed By: #### C MP ####[facility] Sknrplvvgj0488 [place] [address]Dr. Ivette Hernandez EGFR-NON AF [place] 40 mL/min/1.73m2 Critically low >=60 [facility] Comment on above: Performed By: #### C MP ####[facility] Cdiquqvjlh1631 [place] [address]Dr. Ivette Hernandez Globulin (S) [Mass/Vol] 4.1 g/dL Normal [facility] Comment on above: Performed By: #### C MP ####[facility] Oqarqaahfu7495 [place] [address]Dr. Ivette Hernandez Glucose [Mass/Vol] 130 mg/dL Critically high 74-[address] [facility] Comment on above: Performed By: #### C MP ####[facility] Tfnxdmqodp3031 [place] [address]Dr. Ivette Hernandez Potassium [Moles/Vol] 3.4 mmol/L Critically low 3.5-5.1 [facility] Comment on above: Performed By: #### C MP ####[facility] Kdkdyckfwh0485 [place] [address]Dr. Ivette Hernandez Protein [Mass/Vol] 6.4 g/dL Normal 6.4-8.2 [facility] Comment on above: Performed By: #### C MP ####[facility] Wwtaifdrkl0336 [place] [address]Dr. Ivette Hernandez Sodium [Moles/Vol] 143 mmol/L Normal 136-145 [facility] Comment on above: Performed By: #### C MP ####[facility] Jxxlperate7359 [place] [address]Dr. Ivette Hernandez Urea nitrogen [Mass/Vol] 24.0 mg/dL Critically high 7.0-18.0 [facility] Comment on above: Performed By: #### C MP ####[facility] Zucxtsubac5307 [place] [address]Dr. Ivette Hernandez Urea nitrogen/Creatinine [Mass ratio] 18.5 mg/mg Normal [facility] Comment on above: Performed By: #### C MP ####[facility] Xiihesqbxt[address] [place] [address]Dr. Ivette Hernandez US KIDNEYS BLADDERon 022 US KIDNEYS BLADDER Normal [facility] BNPon 02-25-2022 Natriuretic peptide B (Bld) [Mass/Vol] 13852.0 pg/mL Critically high <=900.0 [facility] Comment on above: Performed By: #### M G, BMP, BNP ####[facility] Nwtqfbizob[address] [place], [place] [address]Dr. Ivette David CBC AUTO DIFFon 02-25-2022 BASO # 0.0 103/ul Normal 0.0-0.1 [facility] Comment on above: Performed By: #### C BC ####[facility] Zputgomeve64[address] [place], [place] [address]Dr. Cherjun Hernandez Basophils/100 WBC (Bld) 0.4 % Normal 0.2-2.0 [facility] Comment on above: Performed By: #### C BC ####[facility] Pwdhhbexab[address] [place], [place] [address]Dr. Ivette David EO # 0.1 103/ul Normal 0.0-0.7 [facility] Comment on above: Performed By: #### C BC ####[facility] Jqsaffoftm[address] [place], [place] [address]Dr. Cherjun Hernandez Eosinophils/100 WBC (Bld) 0.8 % Critically low 0.9-7.0 [facility] Comment on above: Performed By: #### C BC ####[facility] Oqownliyps[address] [place], [place] [address]Dr. Cherjun David Erythrocyte distribution width (RBC) [Ratio] 14.3 % Normal 11.0-15.0 [facility] Comment on above: Performed By: #### C BC ####[facility] Uwfajxblri[address] [place], [place] [address]Dr. Ivette Hernandez Hematocrit (Bld) [Volume fraction] 29.3 % Critically low 36.0-48.0 [facility] Comment on above: Performed By: #### C BC ####[facility] Yeqirrtqeb5309 [place] [address]Dr. Ivette Hernandez Hemoglobin (Bld) [Mass/Vol] 9.2 g/dL Critically low 12.0-16.0 [facility] Comment on above: Performed By: #### C BC ####[facility] Hholsyuqjd6179 [place] [address]Dr. Ivette Hernandez IG # 0.04 10e3/ul Critically high 0.00-0.[address] [facility] Comment on above: Performed By: #### C BC ####[facility] Otcmlihtus5738 [place] [address]Dr. Ivette Hernandez IG % 0.4 % Normal 0.0-0.5 [facility] Comment on above: Performed By: #### C BC ####[facility] Gdsetbgapl4507 [place] [address]Dr. Ivette Hernandez LYMPH # 1.9 103/ul Normal 1.2-3.8 [facility] Comment on above: Performed By: #### C BC ####[facility] Girssjnboj9223 [place] [address]Dr. Ivette Hernandez Lymphocytes/100 WBC (Bld) 17.5 % Critically low 20.5-60.0 [facility] Comment on above: Performed By: #### C BC ####[facility] Oscxyfkvmw9938 [place] [address]Dr. Ivette Hernandez MANUAL DIFF REQ NO Normal [facility] Comment on above: Performed By: #### C BC ####[facility] Yemjxoxyuc7693 [place] [address]Dr. Ivette Hernandez MCH (RBC) [Entitic mass] 28.6 pg Normal 26.7-34.0 [facility] Comment on above: Performed By: #### C BC ####[facility] Huxsmhlznb9378 [place] [address]Dr. Ivette Hernandez MCHC (RBC) [Mass/Vol] 31.4 g/dL Normal 29.9-35.2 [facility] Comment on above: Performed By: #### C BC ####[facility] Jypbdzxfse0648 [place] [address]Dr. Ivette Hernandez MCV (RBC) [Entitic vol] 91.0 fL Normal 81.0-99.0 [facility] Comment on above: Performed By: #### C BC ####[facility] Zbepzoreyk4604 [place] [address]Dr. Ivette David MONO # 0.6 103/ul Normal 0.3-0.8 [facility] Comment on above: Performed By: #### C BC ####[facility] Pgvmzfdobi0812 [place] [address]Dr. Ivette Hernandez Monocytes/100 WBC (Bld) 5.4 % Normal 1.7-12.0 [facility] Comment on above: Performed By: #### C BC ####[facility] Pvfwnndybg5900 [place] [address]Dr. Cherjun David NEUT # 8.1 103/ul Critically high 1.4-6.5 [facility] Comment on above: Performed By: #### C BC ####[facility] Kyblrbtrov5888 [place] [address]Dr. hCerjun Hernandez Neutrophils/100 WBC (Bld) 75.5 % Critically high 43.0-75.0 [facility] Comment on above: Performed By: #### C BC ####[facility] Tlpljifbbd3614 [place] [address]Dr. Ivette David Platelet mean volume (Bld) [Entitic vol] 9.7 fL Normal 9.5-13.5 [facility] Comment on above: Performed By: #### C BC ####[facility] Fyzdonhbgi9523 [place] [address]Dr. Ivette Hernandez PLT 242 103/ul Normal 150-450 [facility] Comment on above: Performed By: #### C BC ####[facility] Gfmxacrwai2348 [place] [address]Dr. Ivette Hernandez RBC 3.22 106/ul Critically low 4.20-5.40 [facility] Comment on above: Performed By: #### C BC ####[facility] Jkclwgvoxb0449 [place] [address]Dr. Ivette Hernandez WBC 10.8 103/ul Normal 4.0-11.0 [facility] Comment on above: Performed By: #### C BC ####[facility] Gpjcwzleyu8874 [place] [address]Dr. Ivette Hernandez MAGNESIUMon 02-25-2022 Magnesium [Mass/Vol] 1.3 mg/dL Critically low 1.8-2.4 [facility] Comment on above: Performed By: #### MYRNA Moreira, BNP ####[facility] [address]lbk[address] [place], [place] [address]Dr. Ivette Hernandez POINT OF CARE GLUCOSEon 02-01 Glucose [Mass/Vol] 191 mg/dL Critically high 74-[address] [facility] Comment on above: Performed By: #### P OCGLUC ####[facility] Vdwfbwejga4287 [place] [address]Dr. Ivette Hernandez PROF CHEM 8 (BAS METB)on Anion gap [Moles/Vol] 7.7 mmol/L Normal [facility] Comment on above: Performed By: #### MYRNA Moreira, BNP ####[facility] Yaixeaqscs4297 [place] [address]Dr. Ivette Hernandez Calcium [Mass/Vol] 6.4 mg/dL Critically low 8.5-10.1 [facility] Comment on above: Performed By: #### MYRNA Moreira, BNP ####[facility] Batozfsszq0827 [place] [address]Dr. Ivette Hernandez Chloride [Moles/Vol] 105 mmol/L Normal 98-107 [facility] Comment on above: Performed By: #### M Rosi BMP, BNP ####[facility] Qqgryyifoz6723 [place] [address]Dr. Ivette Hernandez CO2 [Moles/Vol] 37.4 mmol/L Critically high 21.0-32.0 [facility] Comment on above: Performed By: #### MYRNA Moreira, BNP ####[facility] Kgmwrhyeir0000 [place] [address]Dr. Ivette Hernandez Creatinine [Mass/Vol] 1.41 mg/dL Critically high 0.55-1.02 [facility] Comment on above: Performed By: #### MYRNA Moreira, BNP ####[facility] Fntqnienuz[address] [place], [place] [address]Dr. Ivette Hernandez EGFR-AF [place] 44 mL/min/1.73m2 Critically low >=60 [facility] Comment on above: Performed By: #### MYRNA Moreira, BNP ####[facility] Asgpkuukjh[address] [place], [place] [address]Dr. Ivette Hernandez EGFR-NON AF [place] 37 mL/min/1.73m2 Critically low >=60 [facility] Comment on above: Performed By: #### MYRNA Moreira, BNP ####[facility] Cqqaiefmea[address] [place], [place] [address]Dr. Ivette Hernandez Glucose [Mass/Vol] 132 mg/dL Critically high 74-[address] [facility] Comment on above: Performed By: #### MYRNA Moreira, BNP ####[facility] Kfzmpxwxvg4[address] [place] [address]Dr. Ivette Hernandez Potassium [Moles/Vol] 3.1 mmol/L Critically low 3.5-5.1 [facility] Comment on above: Performed By: #### MYRNA Moreira, BNP ####[facility] Kcsxnatzbd[address] [place], [place] [address]Dr. Ivette Hernandez Sodium [Moles/Vol] 147 mmol/L Critically high 136-[address] [facility] Comment on above: Performed By: #### MYRNA Moreira, BNP ####[facility] Voztrwnddh7213 [place] [address]Dr. Ivette Hernandez Urea nitrogen [Mass/Vol] 15.0 mg/dL Normal 7.0-18.0 [facility] Comment on above: Performed By: #### MYRNA Moreira, BNP ####[facility] Janrkbwbof1040 [place] [address]Dr. Ivette Hernandez Urea nitrogen/Creatinine [Mass ratio] 10.6 mg/mg Normal [facility] Comment on above: Performed By: #### M G, BMP, BNP ####[facility] Fbyutamipc6372 [place] [address]Dr. Ivette Hernandez TROPONIN, HIGH SENSITIVITYon 02-25-2022 HSTROP 15.5 pg/mL Normal 4.0-51.3 [facility] Comment on above: Result Comment: CUT- OFF POINTS HAVE BEEN ESTABLISHED BASED ON THE FOURTH UNIVERSAL DEFINITIONS OF MYOCARDIALINFARCTION. THE UPPER REFERENCE LIMIT (URL) OF TROPONIN, DEFINED THE 99TH PERCENTILE OFcTnI DISTRIBUTION IN A REFERENCE POPULATION, HAS BEEN CONFIRMED THE DECISION THRESHOLDFOR OR DIAGNOSIS. Performed By: #### H STROPN ####[facility] Vlcwxychrx[address] [place], [place] [address]Dr. Ivette Hernandez HSTROP 17.6 pg/mL Normal 4.0-51.3 [facility] Comment on above: Result Comment: CUT- OFF POINTS HAVE BEEN ESTABLISHED BASED ON THE FOURTH UNIVERSAL DEFINITIONS OF MYOCARDIALINFARCTION. THE UPPER REFERENCE LIMIT (URL) OF TROPONIN, DEFINED THE 99TH PERCENTILE OFcTnI DISTRIBUTION IN A REFERENCE POPULATION, HAS BEEN CONFIRMED THE DECISION THRESHOLDFOR OR DIAGNOSIS. Performed By: #### H STROPN ####[facility] Arbvjxkmbt[address] [place], [place] [address]Dr. Ivette Hernandez BNPon 02-24-2022 Natriuretic peptide B (Bld) [Mass/Vol] 57258.0 pg/mL Critically high <=900.0 [facility] Comment on above: Performed By: #### B FULL STACK SOFTWARE DEVELOPER, HSTROPN, CMP ####[facility] Twpeapndnw54[address] [place], [place] [address]Dr. Ivette Hernandez CBC AUTO DIFFon 02-24-2022 BASO # 0.1 103/ul Normal 0.0-0.1 [facility] Comment on above: Performed By: #### C BC ####[facility] Lvpsiumyji[address] [place], [place] [address]DrJesse Hernandez Basophils/100 WBC (Bld) 0.5 % Normal 0.2-2.0 [facility] Comment on above: Performed By: #### C BC ####[facility] Gjceobpgmp8[address] [place], [place] [address]Dr. Ivette Hernandez EO # 0.2 103/ul Normal 0.0-0.7 [facility] Comment on above: Performed By: #### C BC ####[facility] Sjmfqlykdf86[address] [place], [place] [address]Dr. Ivette Hernandez Eosinophils/100 WBC (Bld) 2.3 % Normal 0.9-7.0 [facility] Comment on above: Performed By: #### C BC ####[facility] Zvxcpbjnyh[address] [place], [place] [address]Dr. Ivette Hernandez Erythrocyte distribution width (RBC) [Ratio] 14.2 % Normal 11.0-15.0 [facility] Comment on above: Performed By: #### C BC ####[facility] Oisfqowcki03[address] [place], [place] [address]Dr. Ivette Hernandez Hematocrit (Bld) [Volume fraction] 30.2 % Critically low 36.0-48.0 [facility] Comment on above: Performed By: #### C BC ####[facility] Cujuevkfie[address] [place], [place] [address]Dr. Ivette Hernandez Hemoglobin (Bld) [Mass/Vol] 9.3 g/dL Critically low 12.0-16.0 [facility] Comment on above: Performed By: #### C BC ####[facility] [address]jwkfprp[address] [place] [address]Dr. Ivette Hernandez IG # 0.04 10e3/ul Critically high 0.00-0.[address] [facility] Comment on above: Performed By: #### C BC ####[facility] Xkyynjhksr[address] [place], [place] [address]Dr. Ivette Hernandez IG % 0.4 % Normal 0.0-0.5 [facility] Comment on above: Performed By: #### C BC ####[facility] Sbwigjtisc[address] [place], [place] [address]Dr. Ivette Hernandez LYMPH # 2.6 103/ul Normal 1.2-3.8 [facility] Comment on above: Performed By: #### C BC ####[facility] Wgbxyboldu1204 [place] [address]Dr. Cherjun Hernandez Lymphocytes/100 WBC (Bld) 27.1 % Normal 20.5-60.0 [facility] Comment on above: Performed By: #### C BC ####[facility] Tlgisejowd4166 [place] [address]Dr. Ivette Hernandez MANUAL DIFF REQ NO Normal [facility] Comment on above: Performed By: #### C BC ####[facility] Ejkbaybgtc8719 [place] [address]Dr. Ivette Hernandez MCH (RBC) [Entitic mass] 27.8 pg Normal 26.7-34.0 [facility] Comment on above: Performed By: #### C BC ####[facility] Yfmxquondz1378 [place] [address]Dr. Cherjun Hernandez MCHC (RBC) [Mass/Vol] 30.8 g/dL Normal 29.9-35.2 [facility] Comment on above: Performed By: #### C BC ####[facility] Ptfjzcumtz0459 [place] [address]Dr. Ivette Hernandez MCV (RBC) [Entitic vol] 90.4 fL Normal 81.0-99.0 [facility] Comment on above: Performed By: #### C BC ####[facility] Nugkhgprnz7815 [place] [address]Dr. Ivette Hernandez MONO # 0.6 103/ul Normal 0.3-0.8 [facility] Comment on above: Performed By: #### C BC ####[facility] Yzuwxoqdny6202 [place] [address]Dr. Ivette Hernandez Monocytes/100 WBC (Bld) 6.1 % Normal 1.7-12.0 [facility] Comment on above: Performed By: #### C BC ####[facility] Etexqxqmts3613 [place] [address]Dr. Ivette Hernandez NEUT # 6.1 103/ul Normal 1.4-6.5 [facility] Comment on above: Performed By: #### C BC ####[facility] Huvvtrnrsu1887 [place] [address]Dr. Ivette Hernandez Neutrophils/100 WBC (Bld) 63.6 % Normal 43.0-75.0 [facility] Comment on above: Performed By: #### C BC ####[facility] Psrwtychzp9403 [place] [address]Dr. Ivette Hernandez Platelet mean volume (Bld) [Entitic vol] 9.2 fL Critically low 9.5-13.5 [facility] Comment on above: Performed By: #### C BC ####[facility] Yzbzxdimum1211 [place] [address]Dr. Ivette Hernandez PLT 267 103/ul Normal 150-450 [facility] Comment on above: Performed By: #### C BC ####[facility] Wsvcdryxav0185 [place] [address]Dr. Ivette Hernandez RBC 3.34 106/ul Critically low 4.20-5.40 [facility] Comment on above: Performed By: #### C BC ####[facility] Sualvxhngc4869 [place] [address]Dr. Ivette Hernandez WBC 9.6 103/ul Normal 4.0-11.0 [facility] Comment on above: Performed By: #### C BC ####[facility] Fbzfyepudk4183 [place] [address]Dr. Ivette Hernandez [facility]-01 SARS-CoV-2 (COVID-19) RNA MARRY+probe Ql (Unsp spec) Not detected Normal NOT DETECTED [facility] Comment on above: Result Comment: [...] for this test is supported by the [place] of Health and Human Service's declaration that [...] be used). Performed By: #### C VDTBH ####[facility] Kbuqjkaogs6836 [place] [address]Dr. Ivette Hernandez IRON AND TIBCon 02-24-2022 % SATURATION 13.8 % Normal [facility] Comment on above: Performed By: #### V ITAD, FETIBC, B12FOL ####[facility] [address]qpv[address] [place], [place] [address]Dr. Ivette Hernandez Iron [Mass/Vol] 26.0 ug/dL Critically low 50.0-170.0 [facility] [place] Comment on above: Performed By: #### V ITAD, FETIBC, B12FOL ####[facility] [address] [place], [place] [address]Dr. Ivette Hernandez TIBC DIRECT 188.0 ug/dL Critically low 250.0-450.0 [facility] Comment on above: Performed By: #### V ITAD, FETIBC, B12FOL ####[facility] [address] [place], [place] [address]Dr. Ivette Hernandez PROF 14(COMP METB)on 022 Albumin [Mass/Vol] 2.6 g/dL Critically low 3.4-5.0 [facility] Comment on above: Performed By: #### B FULL STACK SOFTWARE DEVELOPER, HSTROPN, CMP ####[facility] [address] [place], [place] [address]Dr. Ivette Hernandez Albumin/Globulin [Mass ratio] 0.6 {ratio} Normal [facility] Comment on above: Performed By: #### B FULL STACK SOFTWARE DEVELOPER, HSTROPN, CMP ####[facility] [address] [place] [address]Dr. Ivette Hernandez ALP [Catalytic activity/Vol] 79 U/L Normal 46-116 [facility] Comment on above: Performed By: #### B FULL STACK SOFTWARE DEVELOPER, HSTROPN, CMP ####[facility] [address] [place] [address]Dr. Ivette Hernandez ALT [Catalytic activity/Vol] 18 U/L Normal 14-59 [facility] Comment on above: Performed By: #### B FULL STACK SOFTWARE DEVELOPER, HSTROPN, CMP ####[facility] [address] [place] [address]Dr. Ivette Hernandez Anion gap [Moles/Vol] 7.4 mmol/L Normal [facility] Comment on above: Performed By: #### B FULL STACK SOFTWARE DEVELOPER, HSTROPN, CMP ####[facility] [address] [place], [place] [address]Dr. Ivette Hernandez AST [Catalytic activity/Vol] 14 U/L Critically low 15-37 [facility] Comment on above: Performed By: #### B FULL STACK SOFTWARE DEVELOPER, HSTROPN, CMP ####[facility] [address] [place], [place] [address]Dr. Ivette Hernandez Bilirubin [Mass/Vol] 0.4 mg/dL Normal 0.2-1.0 [facility] Comment on above: Performed By: #### B FULL STACK SOFTWARE DEVELOPER, HSTROPN, CMP ####[facility] [address] [place] [address]Dr. Ivette Hernandez Calcium [Mass/Vol] 6.3 mg/dL Critically low 8.5-10.1 [facility] Comment on above: Performed By: #### B FULL STACK SOFTWARE DEVELOPER, HSTROPN, CMP ####[facility] [address] [place], [place] [address]Dr. Ivette Hernandez Chloride [Moles/Vol] 108 mmol/L Critically high 98-107 [facility] Comment on above: Performed By: #### B FULL STACK SOFTWARE DEVELOPER, HSTROPN, CMP ####[facility] [address] [place], [place] [address]Dr. Yilan Hernandez CO2 [Moles/Vol] 31.7 mmol/L Normal 21.0-32.0 [facility] Comment on above: Performed By: #### B FULL STACK SOFTWARE DEVELOPER, HSTROPN, CMP ####[facility] [address] [place] [address]Dr. Ivette Hernandez Creatinine [Mass/Vol] 1.50 mg/dL Critically high 0.55-1.02 [facility] Comment on above: Performed By: #### B FULL STACK SOFTWARE DEVELOPER, HSTROPN, CMP ####[facility] [address] [place] [address]Dr. Ivette Hernandez EGFR-AF [place] 41 mL/min/1.73m2 Critically low >=60 [facility] Comment on above: Performed By: #### B FULL STACK SOFTWARE DEVELOPER, HSTROPN, CMP ####[facility] [address] [place] [address]Dr. Ivette Hernandez EGFR-NON AF [place] 34 mL/min/1.73m2 Critically low >=60 [facility] Comment on above: Performed By: #### B FULL STACK SOFTWARE DEVELOPER, HSTROPN, CMP ####[facility] [address] [place], [place] [address]Dr. Ivette Hernandez Globulin (S) [Mass/Vol] 4.3 g/dL Normal [facility] Comment on above: Performed By: #### B FULL STACK SOFTWARE DEVELOPER, HSTROPN, CMP ####[facility] [address] [place] [address]Dr. Ivette Hernandez Glucose [Mass/Vol] 116 mg/dL Critically high 74-[address] [facility] Comment on above: Performed By: #### B FULL STACK SOFTWARE DEVELOPER, HSTROPN, CMP ####[facility] [address] [place], [place] [address]Dr. Ivette Hernandez Potassium [Moles/Vol] 3.1 mmol/L Critically low 3.5-5.1 [facility] Comment on above: Performed By: #### B FULL STACK SOFTWARE DEVELOPER, HSTROPN, CMP ####[facility] [address] [place] [address]Dr. Ivette Hernandez Protein [Mass/Vol] 6.9 g/dL Normal 6.4-8.2 [facility] Comment on above: Performed By: #### B FULL STACK SOFTWARE DEVELOPER, HSTROPN, CMP ####[facility] [address] [place] [address]Dr. Ivette Hernandez Sodium [Moles/Vol] 144 mmol/L Normal 136-145 [facility] Comment on above: Performed By: #### B FULL STACK SOFTWARE DEVELOPER, HSTROPN, CMP ####[facility] [address] [place] [address]Dr. Ivette Hernandez Urea nitrogen [Mass/Vol] 16.0 mg/dL Normal 7.0-18.0 [facility] Comment on above: Performed By: #### B FULL STACK SOFTWARE DEVELOPER, HSTROPN, CMP ####[facility] [address] [place], [place] [address]Dr. Ivette Hernandez Urea nitrogen/Creatinine [Mass ratio] 10.7 mg/mg Normal [facility] Comment on above: Performed By: #### B FULL STACK SOFTWARE DEVELOPER, HSTROPN, CMP ####[facility] [address] [place], [place] [address]Dr. Ivette Hernandez TROPONIN, HIGH SENSITIVITYon 02-24-2022 HSTROP 20.8 pg/mL Normal 4.0-51.3 [facility] Comment on above: Result Comment: CUT- OFF POINTS HAVE BEEN ESTABLISHED BASED ON THE FOURTH UNIVERSAL DEFINITIONS OF MYOCARDIALINFARCTION. THE UPPER REFERENCE LIMIT (URL) OF TROPONIN, DEFINED THE 99TH PERCENTILE OFcTnI DISTRIBUTION IN A REFERENCE POPULATION, HAS BEEN CONFIRMED THE DECISION THRESHOLDFOR OR DIAGNOSIS. Performed By: #### B FULL STACK SOFTWARE DEVELOPER, HSTROPN, CMP ####[facility] [address] [place], [place] [address]Dr. Ivette Hernandez VIT B12 AND FOLATEon Cobalamin (Vitamin B12) [Mass/Vol] 930.0 pg/mL Normal 193.0-986.0 [facility] Comment on above: Performed By: #### V ITAD, FETIBC, B12FOL ####[facility] [address] [place] [address]Dr. Ivette Hernandez FOLATE 22.30 ng/mL Normal 8.60-58.90 [facility] Comment on above: Performed By: #### V ITAD, FETIBC, B12FOL ####[facility] [address] [place], [place] [address]Zg. Ivette Hernandez VITAMIN D 25 OHon 02-24-2022 VIT D 25-OH 35.4 ng/mL Normal [facility] Comment on above: Performed By: #### V ITAD, FETIBC, B12FOL ####[facility] [address] [place], [place] [address]Ed. Ivette Hernandez VIT D RANGES SEE BELOW Normal [facility] Comment on above: Result Comment: <20 ng/mL Vit D deficient 20 - <30 ng/mL Vit D insufficient 30 - 100 ng/mL Vit D sufficient >100 ng/mL Potential Toxicity Performed By: #### V ITAD, FETIBC, B12FOL ####[facility] [address] [place] [id number]. Ivette Hernandez XR CHEST 1 Von 02-24-2022 XR CHEST 1 V Normal [facility] CHEMISTRYOrdered By: SYSTEM SYSTEM on 02-06-2022 Creatinine [Mass/Vol] 1.5 mg/dL High 0.5 - 1.3 mg/dL [facility] Remisol GFR/1.73 sq M.predicted among blacks MDRD (S/P/Bld) [Vol rate/Area] 41 mL/min/1.73 m2 Low >=59mL/min/ 1.73 m2 [facility] Chem S GFR/1.73 sq M.predicted among non-blacks MDRD (S/P/Bld) [Vol rate/Area] 34 mL/min/1.73 m2 Low >=59mL/min/ 1.73 m2 [facility] Chem S Covid-19 PCR (CVDTBH)on 11-01 SARS-CoV-2 (COVID-19) RNA MARRY+probe Ql (Unsp spec) Detected Critically abnormal NOT DETECTED [facility] Comment on above: Result Comment: This test is not yet approved or cleared by the [place] FDA. When there are no FDA-approved or cleared tests available, and other criteria are met, FDA can make tests available under an emergency access mechanism called an Emergency Use Authorization (EUA). The EUA for this test is supported by the [employer] Mechan[employer] of Health and Human Service's (HHS's) declaration [...] be used). Performed By: #### C VDTB ####[facility] [address] [place], [place] [address]Vs. Ivette [facility] Metabolic Pane marky 10-03-2021 Albumin [Mass/Vol] 3.3 g/dL Low 3.6-5.1 [facility] Comment on above: Performed By: #### C MP #### [facility] [address] [place], [place] [id number] Albumin/Globulin [Mass ratio] 1.5 {ratio} Normal 1.0-2.5 [facility] Comment on above: Performed By: #### C MP #### [facility] [address] [place], [place] [id number] ALP [Catalytic activity/Vol] 56 U/L Normal 35-119 [facility] Comment on above: Performed By: #### C MP #### [facility] [address] [place], [place] [id number] ALT [Catalytic activity/Vol] 10 U/L Normal 6-33 [facility] Comment on above: Result Comment: 04/02 Female reference range changed. Performed By: #### C MP #### [facility] [address] [place], [place] [id number] Anion gap [Moles/Vol] 15 mmol/L Normal 12-20 [facility] Comment on above: Result Comment: Effe ctive 05/08/2019 reference range changed. Performed By: #### C MP #### [facility] [address] [place], [place] [id number] AST [Catalytic activity/Vol] 15 U/L Normal 9-34 [facility] Comment on above: Performed By: #### C MP #### [facility] [address] [place], [place] [id number] BUN/CREA 15 Ratio Normal 6-22 [facility] Comment on above: Performed By: #### C MP #### [facility] [address] [place], [place] [id number] Calcium [Mass/Vol] 6.2 mg/dL Low 8.6-10.2 [facility] Special[facility] Comment on above: Performed By: #### C MP #### [facility] [address] [place], [place] [id number] Chloride [Moles/Vol] 108 mmol/L High 98-107 [facility] Comment on above: Performed By: #### C MP #### [facility] [address] [place], [place] [id number] CO2 [Moles/Vol] 24 mmol/L Normal 20-31 [facility] Comment on above: Performed By: #### C MP #### [facility] [address] [place], [place] [id number] Creatinine [Mass/Vol] 1.9 mg/dL High 0.6-1.4 [facility] Comment on above: Performed By: #### C MP #### [facility] [address] [place], [place] [id number] eGFRAA 31 mL/min/1.73m2 Low >60 [facility] Comment on above: Performed By: #### C MP #### [facility] [address] [place], [place] [id number] eGFRNAA 26 mL/min/1.73m2 Low >60 [facility] Comment on above: Performed By: #### C MP #### [facility] [address] [place], [place] [id number] Globulin (S) [Mass/Vol] 2.2 g/dL Normal 1.9-3.7 [facility] Comment on above: Performed By: #### C MP #### [facility] [address] [place], [place] [id number] Glucose [Mass/Vol] 107 mg/dL High 65-99 [facility] [employer] Comment on above: Result Comment: For FASTING Glucose --- ADA reference ranges: Normal 65-99 mg/dl Prediabetes 100-125 Diabetes >/= 126 Performed By: #### C MP #### [facility] [address] [place], [place] [id number] Potassium [Moles/Vol] 4.3 mmol/L Normal 3.5-5.5 [facility] Comment on above: Performed By: #### C MP #### [facility] [address] [place], [place] [id number] Protein [Mass/Vol] 5.5 g/dL Low 6.1-8.1 [facility] Comment on above: Performed By: #### C MP #### [facility] [address] [place], [place] [id number] Sodium [Moles/Vol] 143 mmol/L Normal 135-146 [facility] Comment on above: Performed By: #### C MP #### [facility] [address] [place], [place] [id number] TBIL <0.3 Normal [facility] Comment on above: Performed By: #### C MP #### [facility] [address] [place], [place] [id number] Urea nitrogen [Mass/Vol] 29 mg/dL High 7-25 [facility] Comment on above: Performed By: #### C MP #### [facility] [address] [place], [place] [id number] Q - B-TYPE NATRIURETIC (BNP) on 10-03-2021 Natriuretic peptide B (Bld) [Mass/Vol] 248 pg/mL High <100 [facility] Comment on above: Order Comment: [facility] performed at: [place], [employer], [address] , [address] [place] [address], [place], [address], Skiing Teacher: Chon Manzano MD [facility] Collection Date/Time: [id number] [facility] Results Received Date/Time: [facility] Reported Date/Time: Result Comment: BNP levels increase with age in the general population with the highest values seen in individuals greater than 75 years of age. Reference: J. Am. Dylan. Cardiol. 2002; 40:976-982. Performed By: #### [id number] #### [facility] [address] [place] [address] Complete Blood Counton 09-11 Erythrocyte distribution width (RBC) [Ratio] 14.3 % Normal 11.0-15.0 [facility] Comment on above: Performed By: #### C MP, CBC #### [facility] [address] [place], [place] [id number] Hematocrit (Bld) [Volume fraction] 30.1 % Low 35.0-47.0 [facility] Comment on above: Performed By: #### C MP, CBC #### [facility] [address] [place], [place] [id number] Hemoglobin (Bld) [Mass/Vol] 9.1 g/dL Low 11.6-15.5 [facility] Comment on above: Performed By: #### C MP, CBC #### [facility] [address] [place], [place] [id number] MCH (RBC) [Entitic mass] 28.7 pg Normal 27.0-33.0 [facility] Comment on above: Performed By: #### C MP, CBC #### [facility] [address] [place], [place] [id number] MCHC (RBC) [Mass/Vol] 30.2 g/dL Low 32.0-36.0 [facility] Comment on above: Performed By: #### C MP, CBC #### [facility] [address] [place], [place] [id number] MCV (RBC) [Entitic vol] 95 fL Normal 80-100 [facility] Comment on above: Performed By: #### C MP, CBC #### [facility] [address] [place], [place] [id number] Platelet mean volume (Bld) [Entitic vol] 9.60 fL Normal 7.50-12.50 [facility] Comment on above: Performed By: #### C MP, CBC #### [facility] [address] [place], [place] [id number] Platelets (Bld) [#/Vol] 219 10*3/uL Normal 140-400 [facility] Comment on above: Performed By: #### C MP, CBC #### [facility] [address] [place], [place] [id number] RBC (Bld) [#/Vol] 3.17 10*6/uL Low 3.90-5.20 [facility] Comment on above: Performed By: #### C MP, CBC #### [facility] [address] [place], [place] [id number] RDW-SD 49.8 fL Normal 37.0-50.0 [facility] Comment on above: Performed By: #### C MP, CBC #### [facility] [address] [place], [place] [id number] WBC (Bld) [#/Vol] 11.0 10*3/uL Normal 3.8-11.0 [facility] Comment on above: Performed By: #### C MP, CBC #### [facility] [address] [place], [place] [id number] Comprehensive Metabolic Pane [facility] 09-11-2021 Albumin [Mass/Vol] 3.4 g/dL Low 3.6-5.1 [facility] Comment on above: Performed By: #### C MP, CBC #### [facility] [address] [place], [place] [id number] Albumin/Globulin [Mass ratio] 1.5 {ratio} Normal 1.0-2.5 [facility] Comment on above: Performed By: #### C MP, CBC #### [facility] [address] [place], [place] [id number] ALP [Catalytic activity/Vol] 65 U/L Normal 35-119 [facility] Comment on above: Performed By: #### C MP, CBC #### [facility] [address] [place], [place] [id number] ALT [Catalytic activity/Vol] 52 U/L High 6-33 [facility] Comment on above: Result Comment: 04/02 Female reference range changed. Performed By: #### C MP, CBC #### [facility] [address] [place], [place] [id number] Anion gap [Moles/Vol] 17 mmol/L Normal 12-20 [facility] Comment on above: Result Comment: Effe ctive 05/08/2019 reference range changed. Performed By: #### C MP, CBC #### [facility] [address] [place], [place] [id number] AST [Catalytic activity/Vol] 26 U/L Normal 9-34 [facility] Comment on above: Performed By: #### C MP, CBC #### [facility] [address] [place], [place] [id number] BUN/CREA 20 Ratio Normal 6-22 [facility] Comment on above: Performed By: #### C MP, CBC #### [facility] [address] [place], [place] [id number] Calcium [Mass/Vol] 7.1 mg/dL Low 8.6-10.2 [facility] Comment on above: Performed By: #### C MP, CBC #### [facility] [address] [place], [place] [id number] Chloride [Moles/Vol] 104 mmol/L Normal 98-107 [facility] Comment on above: Performed By: #### C MP, CBC #### [facility] [address] [place], [place] [id number] CO2 [Moles/Vol] 27 mmol/L Normal 20-31 [facility] Comment on above: Performed By: #### C MP, CBC #### [facility] [address] [place], [place] [id number] Creatinine [Mass/Vol] 1.6 mg/dL High 0.6-1.4 [facility] Comment on above: Performed By: #### C MP, CBC #### [facility] [address] [place], [place] [id number] eGFRAA 38 mL/min/1.73m2 Low >60 [facility] Comment on above: Performed By: #### C MP, CBC #### [facility] [address] [place], [place] [id number] eGFRNAA 31 mL/min/1.73m2 Low >60 [facility] Comment on above: Performed By: #### C MP, CBC #### [facility] [address] [place], [place] [id number] Globulin (S) [Mass/Vol] 2.3 g/dL Normal 1.9-3.7 [facility] Comment on above: Performed By: #### C MP, CBC #### [facility] [address] [place], [place] [id number] Glucose [Mass/Vol] 216 mg/dL High 65-99 [facility] Comment on above: Result Comment: For FASTING Glucose --- ADA reference ranges: Normal 65-99 mg/dl Prediabetes 100-125 Diabetes >/= 126 Performed By: #### C MP, CBC #### [facility] [address] [place], [place] [id number] Potassium [Moles/Vol] 4.9 mmol/L Normal 3.5-5.5 [facility] Comment on above: Performed By: #### C MP, CBC #### [facility] [address] [place], [place] [id number] Protein [Mass/Vol] 5.7 g/dL Low 6.1-8.1 [facility] Comment on above: Performed By: #### C MP, CBC #### [facility] [address] [place], [place] [id number] Sodium [Moles/Vol] 143 mmol/L Normal 135-146 [facility] Comment on above: Performed By: #### C MP, CBC #### [facility] [address] [place], [place] [id number] TBIL <0.3 Normal [facility] Comment on above: Performed By: #### C MP, CBC #### [facility] [address] [place], [place] [id number] Urea nitrogen [Mass/Vol] 33 mg/dL High 7-25 [facility] Comment on above: Performed By: #### C MP, CBC #### [facility] [address] [place], [place] [id number] Q - B-TYPE NATRIURETIC (BNP) on 09-11-2021 Natriuretic peptide B (Bld) [Mass/Vol] 963 pg/mL High <100 [place] [employer] Comment on above: Order Comment: [facility] performed at: [place], [facility], [address] [facility], [address] [facility], [place], [address], Skiing Teacher: Chon Manzano MD [facility] Collection Date/Time: [id number] [facility] Results Received Date/Time: [id number] [facility] Reported Date/Time: Result Comment: BNP levels increase with age in the general population with the highest values seen in individuals greater than 75 years of age. Reference: J. Am. Dylan. Cardiol. 2002; 40:976-982. Performed By: #### 3 [id number] #### [facility] [address] [place] [address] Complete Blood Counton 06-26 Erythrocyte distribution width (RBC) [Ratio] 14.9 % Normal 11.0-15.0 [facility] Comment on above: Performed By: #### C BC, CMP #### [facility] [address] [place], [place] [id number] Hematocrit (Bld) [Volume fraction] 29.4 % Low 35.0-47.0 [facility] Comment on above: Performed By: #### C BC, CMP #### [facility] [address] [place], [place] [id number] Hemoglobin (Bld) [Mass/Vol] 9.3 g/dL Low 11.6-15.5 [facility] Comment on above: Performed By: #### C BC, CMP #### [facility] [address] [place], [place] [id number] MCH (RBC) [Entitic mass] 29.3 pg Normal 27.0-33.0 [facility] Comment on above: Performed By: #### C BC, CMP #### [facility] [address] [place], [place] [id number] MCHC (RBC) [Mass/Vol] 31.6 g/dL Low 32.0-36.0 [facility] Comment on above: Performed By: #### C BC, CMP #### [facility] [address] [place], [place] [id number] MCV (RBC) [Entitic vol] 93 fL Normal 80-100 [facility] [employer] Comment on above: Performed By: #### C BC, CMP #### [facility] [address] [place], [place] [id number] Platelet mean volume (Bld) [Entitic vol] 9.60 fL Normal 7.50-12.50 [facility] Comment on above: Performed By: #### C BC, CMP #### [facility] [address] [place], [place] [id number] Platelets (Bld) [#/Vol] 228 10*3/uL Normal 140-400 [facility] Comment on above: Performed By: #### C BC, CMP #### [facility] [address] [place], [place] [id number] RBC (Bld) [#/Vol] 3.17 10*6/uL Low 3.90-5.20 [facility] [employer] Comment on above: Performed By: #### C BC, CMP #### [facility] [address] [place], [place] [id number] RDW-SD 51.3 fL High 37.0-50.0 [facility] Comment on above: Performed By: #### C BC, CMP #### [facility] [address] [place], [place] [id number] WBC (Bld) [#/Vol] 7.9 10*3/uL Normal 3.8-11.0 [facility] [employer] Comment on above: Performed By: #### C BC, CMP #### [facility] [address] [place], [place] [id number] Comprehensive Metabolic Pane [facility] 06-26-2021 Albumin [Mass/Vol] 4.0 g/dL Normal 3.6-5.1 [facility] [employer] Comment on above: Performed By: #### C BC, CMP #### [facility] [address] [place], [place] [id number] Albumin/Globulin [Mass ratio] 1.4 {ratio} Normal 1.0-2.5 [facility] [employer] Comment on above: Performed By: #### C BC, CMP #### [facility] [address] [place], [place] [id number] ALP [Catalytic activity/Vol] 69 U/L Normal 35-119 [facility] Comment on above: Performed By: #### C BC, CMP #### [facility] [address] [place], [place] [id number] ALT [Catalytic activity/Vol] 18 U/L Normal 6-33 [facility] Comment on above: Result Comment: 04/02 Female reference range changed. Performed By: #### C BC, CMP #### [facility] [address] [place], [place] [id number] Anion gap [Moles/Vol] 23 mmol/L High 12-20 [facility] Comment on above: Result Comment: Effe ctive 05/08/2019 reference range changed. Performed By: #### C BC, CMP #### [facility] [address] [place], [place] [id number] AST [Catalytic activity/Vol] 18 U/L Normal 9-34 [facility] Comment on above: Performed By: #### C BC, CMP #### [facility] [address] [place], [place] [id number] BUN/CREA 21 Ratio Normal 6-22 [facility] Comment on above: Performed By: #### C BC, CMP #### [facility] [address] [place], [place] [id number] Calcium [Mass/Vol] 8.8 mg/dL Normal 8.6-10.2 [facility] Comment on above: Performed By: #### C BC, CMP #### [facility] [address] [place], [place] [id number] Chloride [Moles/Vol] 106 mmol/L Normal 98-107 [facility] Comment on above: Performed By: #### C BC, CMP #### [facility] [address] [facility] [place] [id number] CO2 [Moles/Vol] 18 mmol/L Low 20-31 [facility] Comment on above: Performed By: #### C BC, CMP #### [facility] [address] [place], [place] [id number] Creatinine [Mass/Vol] 2.1 mg/dL High 0.6-1.4 [facility] [place] [employer] Comment on above: Performed By: #### C BC, CMP #### [facility] [address] [place] [id number] eGFRAA 29 mL/min/1.73m2 Low >60 [facility] Comment on above: Performed By: #### C BC, CMP #### [facility] [address] [place] [id number] eGFRNAA 24 mL/min/1.73m2 Low >60 [facility] Comment on above: Performed By: #### C BC, CMP #### [facility] [address] [facility] [id number] Globulin (S) [Mass/Vol] 2.8 g/dL Normal 1.9-3.7 [facility] Comment on above: Performed By: #### C BC, CMP #### [facility] [address] [place], [place] [id number] Glucose [Mass/Vol] 145 mg/dL High 65-99 [facility] [employer] Comment on above: Result Comment: For FASTING Glucose --- ADA reference ranges: Normal 65-99 mg/dl Prediabetes 100-125 Diabetes >/= 126 Performed By: #### C BC, CMP #### [facility] [address] [place], [place] [id number] Potassium [Moles/Vol] 4.1 mmol/L Normal 3.5-5.5 [facility] Comment on above: Performed By: #### C BC, CMP #### [facility] [address] [place], [place] [id number] Protein [Mass/Vol] 6.8 g/dL Normal 6.1-8.1 [facility] [employer] Comment on above: Performed By: #### C BC, CMP #### [facility] [address] [facility] [id number] Sodium [Moles/Vol] 142 mmol/L Normal 135-146 [facility] [employer] Comment on above: Performed By: #### C BC, CMP #### [facility] [address] [place], [place] [id number] TBIL <0.3 Normal [facility] Comment on above: Performed By: #### C BC, CMP #### [facility] [address] [place], [place] [id number] Urea nitrogen [Mass/Vol] 44 mg/dL High 7-25 [facility] Comment on above: Performed By: #### C BC, CMP #### [facility] [address] [place], [place] [id number] Complete Blood Counton 05-22 Erythrocyte distribution width (RBC) [Ratio] 14.4 % Normal 11.0-15.0 [facility] Comment on above: Performed By: #### C BC, CMP #### [facility] [address] [place], [place] [id number] Hematocrit (Bld) [Volume fraction] 31.3 % Low 35.0-47.0 [facility] Comment on above: Performed By: #### C BC, CMP #### [facility] [address] [place], [place] [id number] Hemoglobin (Bld) [Mass/Vol] 9.5 g/dL Low 11.6-15.5 [facility] Comment on above: Performed By: #### C BC, CMP #### [facility] [address] [place], [place] [id number] MCH (RBC) [Entitic mass] 28.7 pg Normal 27.0-33.0 [facility] Comment on above: Performed By: #### C BC, CMP #### [facility] [address] [place], [place] [id number] MCHC (RBC) [Mass/Vol] 30.4 g/dL Low 32.0-36.0 [facility] Comment on above: Performed By: #### C BC, CMP #### [facility] [address] [place], [place] [id number] MCV (RBC) [Entitic vol] 95 fL Normal 80-100 [facility] Comment on above: Performed By: #### C BC, CMP #### [facility] [address] [place], [place] [id number] Platelet mean volume (Bld) [Entitic vol] 9.90 fL Normal 7.50-12.50 [facility] Comment on above: Performed By: #### C BC, CMP #### [facility] [address] [place], [place] [id number] Platelets (Bld) [#/Vol] 275 10*3/uL Normal 140-400 [facility] Comment on above: Performed By: #### C BC, CMP #### [facility] [address] [place], [place] [id number] RBC (Bld) [#/Vol] 3.31 10*6/uL Low 3.90-5.20 [facility] Comment on above: Performed By: #### C BC, CMP #### [facility] [address] [place], [place] [id number] RDW-SD 49.4 fL Normal 37.0-50.0 [facility] Comment on above: Performed By: #### C BC, CMP #### [facility] [address] [place], [place] [id number] WBC (Bld) [#/Vol] 11.2 10*3/uL High 3.8-11.0 [facility] Comment on above: Performed By: #### C BC, CMP #### [facility] [address] [place], [place] [id number] Comprehensive Metabolic Pane [facility] 05-22-2021 Albumin [Mass/Vol] 3.9 g/dL Normal 3.6-5.1 [facility] Comment on above: Performed By: #### C BC, CMP #### [facility] [address] [place], [place] [id number] Albumin/Globulin [Mass ratio] 1.3 {ratio} Normal 1.0-2.5 [facility] Comment on above: Performed By: #### C BC, CMP #### [facility] [address] [place], [place] [id number] ALP [Catalytic activity/Vol] 68 U/L Normal 35-119 [facility] Comment on above: Performed By: #### C BC, CMP #### [facility] [address] [place], [place] [id number] ALT [Catalytic activity/Vol] 16 U/L Normal 6-33 [facility] Comment on above: Result Comment: 04/02 Female reference range changed. Performed By: #### C BC, CMP #### [facility] [address] [facility] [facility] [address] [facility] [place] [id number] Anion gap [Moles/Vol] 21 mmol/L High 12-20 [facility] Comment on above: Result Comment: Argenis ctive 05/08/2019 reference range changed. Performed By: #### C BC, CMP #### [facility] [address] [place] [id number] AST [Catalytic activity/Vol] 20 U/L Normal 9-34 [facility] Comment on above: Performed By: #### C BC, CMP #### [facility] [address] [facility] [place] [id number] BUN/CREA 16 Ratio Normal 6-22 [facility] Comment on above: Performed By: #### C BC, CMP #### [facility] [address] [facility] [place] [id number] Calcium [Mass/Vol] 7.9 mg/dL Low 8.6-10.2 [facility] Comment on above: Performed By: #### C BC, CMP #### [facility] [address] [facility] [id number] Chloride [Moles/Vol] 102 mmol/L Normal 98-107 [facility] Comment on above: Performed By: #### C BC, CMP #### [facility] [address] [facility] [id number] CO2 [Moles/Vol] 26 mmol/L Normal 20-31 [facility] Comment on above: Performed By: #### C BC, CMP #### [facility] [address] [facility] [place] [id number] Creatinine [Mass/Vol] 2.0 mg/dL High 0.6-1.4 [facility] Comment on above: Performed By: #### C BC, CMP #### [facility] [address] [place] [id number] eGFRAA 30 mL/min/1.73m2 Low >60 [facility] Comment on above: Performed By: #### C BC, CMP #### [facility] [address] [facility] [id number] eGFRNAA 25 mL/min/1.73m2 Low >60 [facility] Comment on above: Performed By: #### C BC, CMP #### [facility] [address] [place], [place] [id number] Globulin (S) [Mass/Vol] 3.1 g/dL Normal 1.9-3.7 [facility] [employer] Comment on above: Performed By: #### C BC, CMP #### [facility] [address] [place], [place] [id number] Glucose [Mass/Vol] 57 mg/dL Low 65-99 [facility] [employer] Comment on above: Result Comment: For FASTING Glucose --- ADA reference ranges: Normal 65-99 mg/dl Prediabetes 100-125 Diabetes >/= 126 Performed By: #### C BC, CMP #### [facility] [address] [place], [place] [id number] Potassium [Moles/Vol] 4.9 mmol/L Normal 3.5-5.5 [facility] Comment on above: Performed By: #### C BC, CMP #### [facility] [address] [place], [place] [id number] Protein [Mass/Vol] 7.0 g/dL Normal 6.1-8.1 [facility] [employer] Comment on above: Performed By: #### C BC, CMP #### [facility] [address] [place], [place] [id number] Sodium [Moles/Vol] 144 mmol/L Normal 135-146 [facility] [employer] Comment on above: Performed By: #### C BC, CMP #### [facility] [address] [place], [place] [id number] TBIL <0.3 Normal [facility] Comment on above: Performed By: #### C BC, CMP #### [facility] [address] [place], [place] [id number] Urea nitrogen [Mass/Vol] 31 mg/dL High 7-25 [facility] [employer] Comment on above: Performed By: #### C BC, CMP #### [facility] [address] [place], [place] [id number] Hemoglobin A1Con 05-22-2021 EAG 125.50 Normal [facility] Comment on above: Performed By: #### A 1C #### [facility] [address] [place], [place] [id number] HbA1c (Bld) [Mass fraction] 6.0 % Normal 4.0-6.0 [facility] [employer] Comment on above: Performed By: #### A 1C #### [facility] [address] [facility] [id number] BASIC METABOLIC PANELon 08-02 Calcium 9.6 mg/dL Normal 8.6-10.3 [facility] Comment on above: Performed By: #### 0 0071 ####[facility] [place] [address], [facility] Chloride 100 mmol/L Normal 98-107 [facility] Comment on above: Performed By: #### 0 0071 ####[facility] [place] [address], [facility] CO2 28 mmol/L Normal 21-31 [facility] Comment on above: Performed By: #### 0 0071 ####[facility] [place] [address], [facility] Creatinine 1.15 mg/dL Normal 0.60-1.20 [facility] Comment on above: Performed By: #### 0 0071 ####[facility], [place] [address] [place] [address] eGFR (black) 57 ml/min/1.73sq m Abnormal >60 [facility] Comment on above: Performed By: #### 0 0071 ####[facility] [place] [address], [facility] eGFR (non-black) 47 ml/min/1.73sq m Abnormal >60 [facility] Comment on above: Performed By: #### 0 0071 ####[facility] [place] [address], [facility] Glucose mass conc 163 mg/dL High 70-100 [facility] Comment on above: Performed By: #### 0 0071 ####[facility] Potassium molar conc 4.1 mmol/L Normal 3.5-5.1 [facility] Comment on above: Performed By: #### 0 0071 ####[facility] Sodium 135 mmol/L Low 136-145 [facility] Comment on above: Performed By: #### 0 0071 ####[facility] Urea nitrogen 17 mg/dL Normal 7-25 [facility] Comment on above: Performed By: #### 0 0071 ####[facility] CBC W/DIFFon 08-24-2017 ABS BASOPHILS 0.1 10*3/uL Normal 0.0-0.2 [facility] Comment on above: Performed By: #### 5 102 ####[facility] ABS IMM GRANS 0.1 10*3/uL Normal 0.0-0.2 [facility] Comment on above: Performed By: #### 5 3 ####[facility] Basophils Auto #/vol (Bld) 0.5 % Normal 0.0-1.0 [facility] Comment on above: Performed By: #### 5 3 ####[facility] Eosinophils 0.4 10*3/uL Normal 0.0-0.5 [facility] Comment on above: Performed By: #### 5 3 ####[facility] Eosinophils/100 leukocytes 3.5 % Normal 0.0-6.0 [facility] Comment on above: Performed By: #### 5 0103 ####[facility]3000 [facility] Erythrocyte distribution width Auto Ratio (RBC) 14.2 % Normal 11.5-15.0 [facility] Comment on above: Performed By: #### 0103 ####[facility] [facility].[address] Erythrocytes (RBC) 0 % Normal 0-0 [facility] Comment on above: Performed By: #### 5 102 ####[facility] [facility] Erythrocytes (RBC) 4.12 10*6/uL Normal 3.80-5.00 [facility] Comment on above: Performed By: #### 3 ####[facility]3000 [facility].[address] Hematocrit (HCT) 37.1 % Normal 36.0-45.0 [facility] Comment on above: Performed By: #### 5 3 ####[facility]3000 [facility].[address] Hemoglobin mass conc (Bld) 12.3 g/dL Normal 12.0-15.0 [facility] Comment on above: Performed By: #### 5 3 ####[facility] [facility].[address] IMMATURE GRANS 0.4 % Normal 0.0-1.0 [facility] Comment on above: Performed By: #### 5 3 ####[facility] [facility], [place] [address] Lymphocytes 5.1 10*3/uL High 1.2-4.0 [facility] Comment on above: Performed By: #### 5 0103 ####[facility] Lymphocytes/100 leukocytes 40.5 % Normal 20.0-45.0 [facility] Comment on above: Performed By: #### 5 0103 ####[facility] MCH 29.9 pg Normal 27.0-33.0 [facility] Comment on above: Performed By: #### 5 0103 ####[facility] MCHC mass conc (RBC) 33.2 g/dL Normal 32.0-35.0 [facility] Comment on above: Performed By: #### 5 0103 ####[facility] MCV 90.0 fL Normal 82.0-98.0 [facility] Comment on above: Performed By: #### 5 0103 ####[facility] Monocytes 0.9 10*3/uL Normal 0.1-1.0 [facility] Comment on above: Performed By: #### 5 0103 ####[facility] MONOS 7.5 % Normal 5.0-12.0 [facility] Comment on above: Performed By: #### 5 0103 ####[facility] Neutrophils 6.0 10*3/uL Normal 1.6-7.6 [facility] Comment on above: Performed By: #### 5 0103 ####[facility] [place] [address], [facility] Neutrophils/100 leukocytes 47.6 % Normal 40.0-72.0 [facility] Comment on above: Performed By: #### 5 0103 ####[facility] [place] [address], [facility] PLAT CNT 239 10*3/uL Normal 150-400 [facility] Comment on above: Performed By: #### 5 0103 ####[facility] [place] [address], [facility] WBC (Leukocytes) 12.5 10*3/uL High 4.0-10.6 [facility] Comment on above: Performed By: #### 5 0103 ####[facility] [place] [address], [facility] CT ABDOMEN AND PELVIS WO CON TRASTon 08-24-2017 CT ABDOMEN AND PELVIS WO CONTRAST [facility] [place] [id number] Monique ent Name: KATE HAGEN : 1950Sex: FAge: Race: WhiteMRN: [id number]. Location: Patient Status: DVisit #: [id number] Date: 08/24/2017 2:00:00 PMCompleted Date: 08/24/2017 04:18 PMRequesting Provider: KASANDRA BROWN Attending Provider: KASANDRA BROWN Report Copy To: BARRY BARBER Signs & Symptoms: K43.2 Incisional hernia without obstruction or gangrene M90Fjsoosc: AthenaComments: , , oral contrast only , , , Ordering Provider - JANAIN BROWN MD , Rendering Feliberto BROWN MD , Exam: CT ABDOMEN AND PELVIS WO CONTRASTAccession #: [id number] ===CT ABDOMEN AND PELVIS WO CONTRAST 08/24/2017 4:21 [...] contrast only , , , Ordering Provider Juan BROWN MD , Rendering Feliberto BROWN MD , PROTOCOL: Axial CT images [...] atherosclerotic changes the abdominal aorta and branch circulation.Retroperitoneu m: Scattered retroperitoneal lymph nodes, without pathologic enlargement.Abdominal [...] findings. Electronically signed by:Colin Clemente. Transcribed by: [email or web address], User Resident: [email or web address] RUSHElectronically Signed by: COLIN CLEMENTE @ 08/25/2017 10:20 PMI personally read this/these film(s) with this resident Normal [facility] Comment on above: Order Comment: , , o ral contrast only , , , Ordering Provider - KASANDRA BROWN MD , Rendering Provider - KASANDRA BROWN MD , HEMOGLOBIN A1Con 08-24-2017 Glucose mass conc 146 mg/dL High 70-126 [facility] Comment on above: Performed By: #### 4 6433 ####[place] [address] [address] Hemoglobin A1c/Hemoglobin.total mass fraction (Bld) 6.7 % High 4.0-6.0 [facility] Comment on above: Performed By: #### 4 6447 ####[facility]3000 [facility].[address] PROTHROMBIN TIMEon 8 INR Coag RelTime (PPP) 1.10 {INR} Normal 0.91-1.16 [facility] Comment on above: Result Comment: ACCC P RECOMMENDED INR FOR WARFARIN THERAPY CONDITION INRPROPHYLAXIS OF VENOUS THROMBOSIS 2-3(HIGH-RISK SURGERY)TREATMENT OF VENOUS THROMBOSIS 2-3TREATMENT OF PULMONARY EMBOLISM 2-3PREVENTION OF SYSTEMIC EMBOLISM: 2-3 ACUTE MYOCARDIAL INFARCTION TISSUE HEART VALVES VALVULAR HEART DISEASE ATRIAL FIBRILLATION RECURRENT SYSTEMIC EMBOLISMMECHANICAL HEART VALVE 2.5-3.5 FROM: ORAL ANTICOAGULANTS. MECHANISM OF ACTION, CLINICALEFFECTIVENESS, AND OPTIMAL THERAPEUTIC RANGE. [id number]. Performed By: #### 5 6101 ####[facility] [facility].[address] Prothrombin time (PT) Coag time (PPP) 14.3 s Normal 12.3-14.8 [facility] Comment on above: Result Comment: ALL RESULTS MUST BE INTERPRETED WITH RESPECT TO BLOOD DRAWING ARTIFACTOR DILUTION ERROR OF ANTICOAGULANT AT THE TIME OF SAMPLING. Performed By: #### 5 6101 ####[facility] [facility].[address] Vital Signs Date Time Vital Sign Value Performing Clinician Facility 03-09-2024 15:22-0500 Body height 160 cm Colt Anam DPM Work Phone: [facility] 03-09-2024 15:22-0500 Body mass index (BMI) [Ratio] 23.56 kg/m2 Colt Anam DPM Work Phone: [facility] 03-09-2024 15:22-0500 Body weight 60.33 kg Colt Anam DPM Work Phone: [facility] 03-09-2024 15:22-0500 Diastolic blood pressure 82 mm[Hg] Colt Thomason DPM Work Phone: [facility] 03-09-2024 15:22-0500 Heart rate 83 /min Colt Anam DPM Work Phone: [facility] 03-09-2024 15:22-0500 Systolic blood pressure 125 mm[Hg] Colt Thomason DPM Work Phone: [facility] 12-09-2023 15:00-0400 Body height 152.4 cm II Barry Barber Work Phone: [facility] 12-09-2023 15:00-0400 Body mass index (BMI) [Ratio] 25 kg/m2 II Barry Barber Work Phone: [facility] 12-09-2023 15:00-0400 Body temperature 98.3 [degF] II Barry Barber Work Phone: [facility] 12-09-2023 15:00-0400 Body weight 58.05 kg II Barry Barber Work Phone: [facility] 12-09-2023 15:00-0400 Diastolic blood pressure 62 mm[Hg] II Barry Barber Work Phone: [facility] 12-09-2023 15:00-0400 Heart rate 102 /min II Barry Barber Work Phone: [facility] 12-09-2023 15:00-0400 Inhaled oxygen flow rate 3 L/min II Barry Barber Work Phone: [facility] 12-09-2023 15:00-0400 Respiratory rate 20 /min II Barry Barber Work Phone: [facility] 12-09-2023 15:00-0400 SaO2% (BldA) [Mass fraction] 96 % II Barry Barber Work Phone: [facility] 12-09-2023 15:00-0400 Systolic blood pressure 98 mm[Hg] II Barry Barber Work Phone: [facility] 11-11-2023 15:21-0400 Inhaled oxygen flow rate 3 L/min II Barry Barber Work Phone: [facility] 11-11-2023 15:20-0400 Body temperature 98.5 [degF] II Barry Barber Work Phone: [facility] 11-11-2023 15:20-0400 Diastolic blood pressure 91 mm[Hg] II Barry Barber Work Phone: [facility] 11-11-2023 15:20-0400 Heart rate 109 /min II Barry Barber Work Phone: [facility] 11-11-2023 15:20-0400 Respiratory rate 18 /min II Barry Barber Work Phone: [facility] 11-11-2023 15:20-0400 SaO2% (BldA) [Mass fraction] 99 % II Barry Barber Work Phone: [facility] 11-11-2023 15:20-0400 Systolic blood pressure 145 mm[Hg] II Barry Barber Work Phone: [facility] 11-11-2023 06:00-0400 Body weight 64.6 kg II Barry Barber Work Phone: [facility] 11-09-2023 15:12-0400 Body height 152.4 cm II Barry Barber Work Phone: [facility] 11-08-2023 18:31-0400 Diastolic blood pressure 103 mm[Hg] II Barry Barber Work Phone: [facility] 11-08-2023 18:31-0400 Heart rate 74 /min II Barry Barber Work Phone: [facility] 11-08-2023 18:31-0400 Respiratory rate 19 /min II Barry Barber Work Phone: [facility] 11-08-2023 18:31-0400 SaO2% (BldA) [Mass fraction] 98 % II Barry Barber Work Phone: [facility] 11-08-2023 18:31-0400 Systolic blood pressure 130 mm[Hg] II Barry Barber Work Phone: [facility] 11-08-2023 16:44-0400 Body temperature 98.3 [degF] II Baryr Barber Work Phone: [facility] 11-08-2023 16:44-0400 Inhaled oxygen flow rate 3 L/min II Barry Barber Work Phone: [facility] 11-08-2023 11:54-0400 Body height 152.4 cm II Barry Barber Work Phone: [facility] 11-08-2023 11:54-0400 Body weight 65.31 kg II Barry Barber Work Phone: [facility] 09-07-2023 15:24-0400 Blood Pressure Location Shaye Orzech [facility] 09-07-2023 15:24-0400 Body temperature 98.06 [degF] Shaye Orzech [facility] 09-07-2023 15:24-0400 Diastolic blood pressure 62 mm[Hg] Shaye Orzech [facility] 09-07-2023 15:24-0400 Heart rate 78 /min Shaye Orzech [facility] 09-07-2023 15:24-0400 Respiratory rate 16 /min Shaye Orzech [facility] 09-07-2023 15:24-0400 Systolic blood pressure 125 mm[Hg] Shaye Orzech [facility] 07-26-2023 14:20-0400 Body height 152.4 cm Annika Kaba [employer] RE[employer]ITER[employer] WORK[employer] SUPERVISOR Work Phone: [facility] 07-26-2023 14:20-0400 Body mass index (BMI) [Ratio] 25.78 kg/m2 Annika Kaba HE[employer] C[employer] RECRUITER-[employer] WORKER SUPERVISOR Work Phone: [facility] 07-26-2023 14:20-0400 Body weight 59.88 kg Annkia Kaba HEALTH CARE RECRUITER-[employer] WORKER SUPERVISOR Work Phone: [facility] 07-26-2023 14:20-0400 Diastolic blood pressure 56 mm[Hg] Annika Kaba HEALTH CARE RECRUITER-PARK WORKER SUPERVISOR Work Phone: [facility] 07-26-2023 14:20-0400 Heart rate 72 /min Annika Kaba HEALTH CARE RECRUITER-PARK WORKER SUPERVISOR Work Phone: [facility] 07-26-2023 14:20-0400 Systolic blood pressure 106 mm[Hg] Annika Kaba HEALTH CARE RECRUITER-PARK WORKER SUPERVISOR Work Phone: [facility] 04-29-2023 14:24-0500 Body height 152.[address] 04-29-2023 14:24-0500 Body mass index (BMI) [Ratio] 31.25 kg/m2 [address] 04-29-2023 14:24-0500 Body weight 72.[address] 04-29-2023 14:24-0500 Diastolic blood pressure 64 mm[Hg] [address] 04-29-2023 14:24-0500 Systolic blood pressure 122 mm[Hg] [address] 04-28-2023 09:43-0500 Body temperature 96.98 [degF] Jacqui Lue [facility] 04-28-2023 09:43-0500 Diastolic blood pressure 86 mm[Hg] Jacqui Lue [facility] 04-28-2023 09:43-0500 Heart rate 74 /min Jacqui Lue [facility] 04-28-2023 09:43-0500 Systolic blood pressure 124 mm[Hg] Jacqiu Lue [facility] 03-30-2023 13:55-0500 Body height 152.4 cm Annika Kaba HEALTH CARE RECRUITER-PARK WORKER SUPERVISOR Work Phone: [facility] 03-30-2023 13:55-0500 Body mass index (BMI) [Ratio] 31.25 kg/m2 Annika Kaba HEALTH CARE RECRUITER-PARK WORKER SUPERVISOR Work Phone: [facility] 03-30-2023 13:55-0500 Body weight 72.58 kg Annika Kaba HEALTH CARE RECRUITER-PARK WORKER SUPERVISOR Work Phone: [facility] 03-30-2023 13:55-0500 Diastolic blood pressure 60 mm[Hg] Annika Kaba HEALTH CARE RECRUITER-PARK WORKER SUPERVISOR Work Phone: [facility] 03-30-2023 13:55-0500 Heart rate 70 /min Annika Kaba HEALTH CARE RECRUITER-PARK WORKER SUPERVISOR Work Phone: [facility] 03-30-2023 13:55-0500 Systolic blood pressure 128 mm[Hg] Annika Kaba HEALTH CARE RECRUITER-PARK WORKER SUPERVISOR Work Phone: [facility] 02-03-2023 09:07-0400 Blood Pressure Location Jacqui Lue [facility] 02-03-2023 09:07-0400 Diastolic blood pressure 74 mm[Hg] Jacqui Lue [facility] 02-03-2023 09:07-0400 Heart rate 68 /min Jacqui Lue [facility] 02-03-2023 09:07-0400 Respiratory rate 16 /min Jacqui Lue [facility] 02-03-2023 09:07-0400 Systolic blood pressure 120 mm[Hg] Jacqui Lue [facility] 12-29-2022 14:17-0400 Blood Pressure Location XIMENA DANN [facility] 12-29-2022 14:17-0400 Diastolic blood pressure 70 mm[Hg] XIMENA DANN [facility] 12-29-2022 14:17-0400 Heart rate 70 /min XIMENA DANN [facility] 12-29-2022 14:17-0400 Respiratory rate 16 /min XIMENA DANN [facility] 12-29-2022 14:17-0400 Systolic blood pressure 132 mm[Hg] XIMENA DANN [facility] 12-28-2022 14:33-0400 Body height 152.4 cm Barry Barber Work Phone: [facility] 250 DO Work Phone: 12-28-2022 14:33-0400 Body mass index (BMI) [Ratio] 29.49 kg/m2 Barry Barber Work Phone: [facility] 250 DO Work Phone: 12-28-2022 14:33-0400 Body surface area Derived from formula 1.66 m2 Barry Barber Work Phone: [facility] 250 DO Work Phone: 12-28-2022 14:33-0400 Body weight 68.49 kg Barry Barber Work Phone: [facility] 250 DO Work Phone: 12-28-2022 14:33-0400 Diastolic blood pressure 44 mm[Hg] Barry Barber Work Phone: [facility] 250 DO Work Phone: 12-28-2022 14:33-0400 Heart rate 76 /min Barry Barber Work Phone: [facility] 250 DO Work Phone: 12-28-2022 14:33-0400 Systolic blood pressure 80 mm[Hg] Barry Barber Work Phone: [facility] 250 DO Work Phone: 12-28-2022 14:33-0400 11 1 Barry Barber Work Phone: [facility] 250 DO Work Phone: Comment on above: PHQ-9 TS 11-21-2022 16:00-0400 Inhaled oxygen flow rate 4 L/min II Barry Barber Work Phone: [facility] 11-21-2022 15:53-0400 Heart rate 65 /min II Barry Barber Work Phone: [facility] 11-21-2022 15:53-0400 Respiratory rate 20 /min II Barry Barber Work Phone: [facility] 11-21-2022 12:00-0400 Diastolic blood pressure 79 mm[Hg] II Barry Barber Work Phone: [facility] 11-21-2022 12:00-0400 SaO2% (BldA) [Mass fraction] 93 % II Barry Barber Work Phone: [facility] 11-21-2022 12:00-0400 Systolic blood pressure 149 mm[Hg] II Barry Barber Work Phone: [facility] 11-21-2022 08:30-0400 Body temperature 97.9 [degF] II Barry Barber Work Phone: [facility] 11-21-2022 06:00-0400 Body weight 74 kg II Barry Barber Work Phone: [facility] 11-19-2022 09:40-0400 Body height 152.4 cm II Barry Barber Work Phone: [facility] 11-18-2022 19:23-0400 Diastolic blood pressure 88 mm[Hg] II Barry Barber Work Phone: [facility] 11-18-2022 19:23-0400 Heart rate 82 /min II Barry Barber Work Phone: [facility] 11-18-2022 19:23-0400 Inhaled oxygen flow rate 3 L/min II Barry Barber Work Phone: [facility] 11-18-2022 19:23-0400 Respiratory rate 18 /min II Barry Barber Work Phone: [facility] 11-18-2022 19:23-0400 SaO2% (BldA) [Mass fraction] 96 % II Barry Barber Work Phone: [facility] 11-18-2022 19:23-0400 Systolic blood pressure 194 mm[Hg] II Barry Barber Work Phone: [facility] 11-18-2022 16:13-0400 Body height 152.4 cm II Barry Barber Work Phone: [facility] 11-18-2022 16:13-0400 Body temperature 98.3 [degF] II Barry Barber Work Phone: [facility] 11-18-2022 16:13-0400 Body weight 75.29 kg II Barry Barber Work Phone: [facility] 08-27-2022 16:00-0400 Body height 152.4 cm Ziggy Charlie Other [facility] Other 08-27-2022 16:00-0400 Body mass index (BMI) [Ratio] 34.8 kg/m2 Ziggy Charlie Other [facility] Other 08-27-2022 16:00-0400 Body temperature 97.5 [degF] Ziggy Charlie Other [facility] Other 08-27-2022 16:00-0400 Body weight 80.83 kg Ziggy Charlie Other [facility] Other 08-27-2022 16:00-0400 Diastolic blood pressure 70 mm[Hg] Ziggy Charlie Other [facility] Other 08-27-2022 16:00-0400 Respiratory rate 18 /min Ziggy Charlie Other [facility] Other 08-27-2022 16:00-0400 SaO2% (BldA) [Mass fraction] 91 % Ziggy Charlie Other [facility] Other 08-27-2022 16:00-0400 Systolic blood pressure 124 mm[Hg] Ziggy Charlie Other [facility] Other 07-29-2022 09:08-0400 Blood Pressure Location Jacqui Lue [facility] 07-29-2022 09:08-0400 Diastolic blood pressure 89 mm[Hg] Jacqui Lue [facility] 07-29-2022 09:08-0400 Heart rate 66 /min Jacqui Lue [facility] 07-29-2022 09:08-0400 Systolic blood pressure 131 mm[Hg] Jacqui Lue [facility] 06-10-2022 10:24-0500 Blood Pressure Location Jacqui Lue [facility] 06-10-2022 10:24-0500 Diastolic blood pressure 80 mm[Hg] Jacqui Lue [facility] 06-10-2022 10:24-0500 Heart rate 77 /min Jacqui Lue [facility] 06-10-2022 10:24-0500 Systolic blood pressure 130 mm[Hg] Jacqui Lue [facility] 02-16-2022 13:05-0400 Blood Pressure Location Montero SALAM [facility] 02-16-2022 13:05-0400 Diastolic blood pressure 76 mm[Hg] Montero SALAM [facility] 02-16-2022 13:05-0400 Heart rate 68 /min Montero SALAM [facility] 02-16-2022 13:05-0400 Respiratory rate 30 /min Montero SALAM [facility] 02-16-2022 13:05-0400 SaO2% (BldA) [Mass fraction] 98 % Montero SALAM [facility] 02-16-2022 13:05-0400 Systolic blood pressure 142 mm[Hg] Montero SALAM [facility] 02-16-2022 13:00-0400 Respiratory rate 25 /min Montero SALAM [facility] 02-16-2022 13:00-0400 Systolic blood pressure 127 mm[Hg] Montero SALAM [facility] 02-16-2022 12:55-0400 Blood Pressure Location Montero SALAM [facility] 02-16-2022 12:55-0400 Diastolic blood pressure 71 mm[Hg] Montero SALAM [facility] 02-16-2022 12:55-0400 Heart rate 70 /min Montero SALAM [facility] 02-16-2022 12:55-0400 Respiratory rate 27 /min Montero SALAM [facility] 02-16-2022 12:55-0400 SaO2% (BldA) [Mass fraction] 97 % Montero SALAM [facility] 02-16-2022 12:55-0400 Systolic blood pressure 119 mm[Hg] Montero SALAM [facility] 02-16-2022 12:42-0400 Body temperature 96.98 [degF] Montero SALAM [facility] 02-16-2022 10:46-0400 Body temperature 96.8 [degF] Montero EDENILSONAM [facility] 12-31-2021 14:58-0400 Diastolic blood pressure 80 mm[Hg] Lanidariela HowardLisy [facility] 12-31-2021 14:58-0400 Mean blood pressure 100 mm[Hg] Lanidariela HowardLisy [facility] 12-31-2021 14:58-0400 Systolic blood pressure 140 mm[Hg] Lani Lisy [facility] 12-31-2021 14:54-0400 Blood Pressure Location Lanidariela HowardLisy [facility] 12-31-2021 14:54-0400 Body temperature 97.7 [degF] Lani Lisy [facility] 12-31-2021 14:54-0400 Diastolic blood pressure 77 mm[Hg] Lani Lisy [facility] 12-31-2021 14:54-0400 Heart rate 69 /min Lanidariela HowardLisy [facility] 12-31-2021 14:54-0400 Systolic blood pressure 144 mm[Hg] Lani Lisy [facility] 12-13-2021 11:05-0400 Body weight 79.56 kg Smiley Davila Other [facility] Other 12-13-2021 11:05-0400 Diastolic blood pressure 70 mm[Hg] Smiley Davila Other [facility] Other 12-13-2021 11:05-0400 Respiratory rate 18 /min Smiley Davila Other [facility] Other 12-13-2021 11:05-0400 SaO2% (BldA) [Mass fraction] 94 % Smiley Davila Other [facility] Other 12-13-2021 11:05-0400 Systolic blood pressure 129 mm[Hg] Smiley Davila Other [facility] Other Encounters Encounter Date Encounter Type Care Provider Facility Start: 03-22-2024 End: 03-22-2024 Zhou Barber MD Work Phone: [facility] Comment on above: Panic attacks ([facility]/H CC) Start: 03-15-2024 End: 03-15-2024 ambulatory Jacqui Michael Facility:[facility] Start: 03-15-2024 End: 03-15-2024 Patient encounter procedure Jacqui Michael [facility] Start: 03-09-2024 End: 03-09-2024 Office outpatient visit 10 minutes Colt Thomason DPM Work Phone: [facility] Comment on above: Xerosis cutis (Prima ry Dx); Diabetes mellitus due to underlying condition with diabetic polyneuropathy, unspecified whether mcfp insulin use ([facility]); Pain due to onychomycosis of toenails of both feet Start: 03-09-2024 End: 03-09-2024 ambulatory COLT THOMASON Not Available Start: 03-09-2024 End: 03-09-2024 Bamboo flowsheet Colt Thomason DPM Work Phone: [facility] Start: 03-09-2024 End: 03-09-2024 Bamboo flowsheet Colt Thomason DPM Work Phone: [facility] Start: 02-10-2024 End: 02-10-2024 Refill Barry Barber MD Work Phone: [facility] Comment on above: Panic attacks (CMS/H CC) Start: 01-17-2024 End: 01-17-2024 ambulatory BARRY BARBER Not Available Start: 12-30-2023 End: 12-30-2023 ambulatory COLT THOMASON Not Available Start: 12-09-2023 End: 12-09-2023 ambulatory II Barry Barber Work Phone: [facility] Work Phone: Start: 12-09-2023 End: 12-09-2023 Patient encounter procedure II Barry Barber Work Phone: [facility] Work Phone: Start: 12-03-2023 End: 12-03-2023 ambulatory BARRY BARBER [facility] Start: 12-01-2023 End: 12-01-2023 ambulatory MAHAMED Perez HEMDENAE Not Available Start: 11-18-2023 End: 11-18-2023 ambulatory MAHAMED M HEMMER Not Available Start: 11-09-2023 Non-patient / Non-visit II Juan Manuel bear Justice Work Phone: [facility] Work Phone: Start: 11-08-2023 End: 11-11-2023 Evaluation and management of inpatient II Barry Barber Work Phone: [facility] [place] [facility] Work Phone: Start: 11-03-2023 End: 11-03-2023 ambulatory MAHAMED M HEMMER Not Available Start: 10-13-2023 End: 10-13-2023 ambulatory BARRY BARBER Not Available Start: 09-12-2023 Letter encounter Colt gonzalez DO Work Phone: [facility] Start: 09-10-2023 End: 09-10-2023 ambulatory BARRY BARBER Not Available Start: 09-08-2023 End: 09-09-2023 ambulatory KAYDEN LEE Facility:[facility] Start: 09-08-2023 End: 09-08-2023 Office outpatient visit 15 minutes Colt Live DO Work Phone: [facility] Comment on above: Closed displaced int ertrochanteric fracture of right femur, initial encounter ([facility]) (Primary Dx) Start: 09-08-2023 End: 09-08-2023 Subsequent hospital visit by physician Phe Op X-Ray 4 [facility] Comment on above: Closed displaced int ertrochanteric fracture of right femur, initial encounter (HCC) Start: 09-07-2023 End: 09-07-2023 ambulatory Shaye X Orzech Facility:[facility] Start: 09-07-2023 End: 09-07-2023 Patient encounter procedure Shaye X Orzech [facility] Start: 08-18-2023 ambulatory MENG LEOS Facility: [facility] Start: 08-18-2023 End: 08-18-2023 Patient encounter procedure Meng Leos DMD, MD Work Phone: [facility] Comment on above: Edentulous (Primary Dx) Start: 08-12-2023 End: 08-12-2023 ambulatory BARRY BARBER Not Available Start: 08-11-2023 End: 08-12-2023 ambulatory ANNIKA KABA [facility] Start: 07-26-2023 End: 07-26-2023 Office outpatient visit 25 minutes Annika Kaba HEALTH CARE RECRUITER-PARK WORKER SUPERVISOR Work Phone: [facility] Comment on above: Anticoagulated (Prim omar Dx); Paroxysmal atrial fibrillation (CMS/HCC); Nonrheumatic aortic valve stenosis; Abnormal echocardiogram; Pulmonary hypertension (CMS/HCC); Mixed hyperlipidemia; Essential hypertension; Diabetes mellitus type II, non insulin dependent (CMS/HCC); Stage 3b chronic kidney disease (CMS/HCC); BMI 25.0-25.9,adult; Current smoker Start: 07-07-2023 End: 07-08-2023 ambulatory KAYDEN LEE Facility:[facility] Start: 07-07-2023 End: 07-07-2023 Patient encounter procedure Colt Live DO Other Phone: [facility] Comment on above: Closed displaced int ertrochanteric fracture of right femur, initial encounter (HCC) (Primary Dx) Start: 07-07-2023 End: 07-07-2023 Subsequent hospital visit by physician Phe 1 [facility] Comment on above: Closed displaced int ertrochanteric fracture of right femur, initial encounter (HCC) Start: 07-06-2023 End: 07-06-2023 ambulatory MAHAMED RM Not Available Start: 07-05-2023 Ancillary Orders Kayden Lee PA-C Other Phone: [facility] Start: 06-16-2023 Clinisync Result Encounter Annabelle Rivas MD Work Phone: [facility] Unsolicited Start: 06-16-2023 Clinisync Result Encounter Annabelle Rivas MD Work Phone: [facility] Unsolicited Start: 06-15-2023 ambulatory Elmo Allen RN Work Phone: [facility] Care Management/Patient Access Start: 06-15-2023 Coordination of care plan Epifanio Allen RN Work Phone: [facility] Care Management/Patient Access Comment on above: Care Coordination; T ransitional Care Management Start: 06-14-2023 Clinisync Result Encounter Annabelle Rivas MD Work Phone: [facility] Unsolicited Start: 06-14-2023 Clinisync Result Encounter Annabelle Rivas MD Work Phone: [facility] Unsolicited Start: 06-11-2023 Clinisync Result Encounter Jose Conti FULL STACK SOFTWARE DEVELOPER Work Phone: [facility] Unsolicited Start: 06-11-2023 Clinisync Result Encounter Jose Conti FULL STACK SOFTWARE DEVELOPER Work Phone: [facility] Unsolicited Start: 06-09-2023 End: 06-10-2023 ambulatory KAYDEN LEE Facility:[facility] Start: 06-09-2023 End: 06-09-2023 Patient encounter procedure Colt Live DO Work Phone: [facility] Comment on above: Closed displaced int ertrochanteric fracture of right femur, initial encounter ([facility]) (Primary Dx) Start: 06-09-2023 End: 06-09-2023 Subsequent hospital visit by physician Phe Op X-Ray 4 [facility] Comment on above: Closed displaced int ertrochanteric fracture of right femur, initial encounter ([facility]) Start: 06-07-2023 Ancillary Orders Kayden Lee PA-C Work Phone: [facility] Start: 06-01-2023 ambulatory Elmo Allen RN Work Phone: [facility] Care Management/Patient Access Start: 06-01-2023 Coordination of care plan Epifanio lAlen RN Work Phone: [facility] Care Management/Patient Access Comment on above: Care Coordination; T ransitional Care Management Start: 05-25-2023 ambulatory Elmo Allen RN Work Phone: [facility] Care Management/Patient Access Start: 05-25-2023 Coordination of care plan Epifanio Allen RN Work Phone: [facility] Care Management/Patient Access Comment on above: Care Coordination; T ransitional Care Management Start: 05-19-2023 ambulatory Elmo Allen RN Work Phone: [facility] Care Management/Patient Access Start: 05-19-2023 Follow-up encounter Elmo de leon RN Work Phone: [facility] Care Management/Patient Access Comment on above: Care Coordination; T ransitional Care Management; Hospital follow-up Start: 05-14-2023 Evaluation and manag ement of inpatient UNKNOWN PROVIDER Facility:[facility] Start: 05-14-2023 ambulatory UNKNOWN PROVIDER Facili ty:[facility] Start: 05-13-2023 End: 05-18-2023 Evaluation and management of inpatient LALI RIVERA Facility:[facility] Start: 05-07-2023 End: 05-07-2023 ambulatory [facility] Start: 04-29-2023 End: 04-29-2023 Subsequent hospital visit by physician Doreen Chi Echo/Vasc Room 2 [facility] Comment on above: Nonrheumatic aortic valve stenosis; Pulmonary hypertension (CMS/HCC) Start: 04-28-2023 End: 04-28-2023 ambulatory Jacqui Michael Facility:[facility] Start: 04-28-2023 End: 04-28-2023 Patient encounter procedure Jacqui Michael [facility] Start: 04-20-2023 End: 04-20-2023 ambulatory [facility] Start: 04-20-2023 ambulatory Jacqui Michael Facility:[facility] Start: 04-19-2023 End: 04-19-2023 ambulatory BARRY BARBER Not Available Start: 04-05-2023 End: 04-05-2023 ambulatory BARRY BARBER Not Available Start: 03-30-2023 End: 03-30-2023 Office outpatient visit 25 minutes Annika Kaba APRN-PARK WORKER SUPERVISOR Work Phone: [facility] Comment on above: Paroxysmal atrial fi brillation (CMS/HCC) (Primary Dx); Anticoagulated; Nonrheumatic aortic valve stenosis; Abnormal echocardiogram; Pulmonary hypertension (CMS/HCC); Stage 3a chronic kidney disease (CMS/HCC); Current smoker; Diabetes mellitus type II, non insulin dependent (CMS/HCC); BMI 31.0-31.9,adult; Mixed hyperlipidemia; Essential hypertension Start: 02-22-2023 End: 02-22-2023 Patient encounter procedure Jacqui Michael [facility] Start: 02-03-2023 End: 02-03-2023 Patient encounter procedure [facility]qui [facility] Start: 12-29-2022 End: 12-29-2022 Patient encounter procedure XIMENA Ata QUIGLEY [facility] Juan Start: 12-28-2022 Patient encounter procedure Balaji Barber Work Phone: [facility] 250 DO Work Phone: Start: 12-28-2022 ambulatory Annika Kaba Facility:[id number] Start: 11-21-2022 ambulatory Annika Kaba Facility:[id number] Start: 11-20-2022 ambulatory Annika Kaba Facility:[id number] Start: 11-19-2022 ambulatory Annika Kaba Facility:[id number] [id number] Start: 11-18-2022 ambulatory Annika Kaba Facility:[id number] Start: 11-18-2022 End: 11-21-2022 Evaluation and management of inpatient MARTHA Barber Work Phone: [facility] Work Phone: Start: 10-27-2022 End: 10-27-2022 ambulatory PHILL SIMPSON [facility] Start: 09-22-2022 End: 09-22-2022 [facility] Start: 09-11-[address] BARRY BARBER Facilit y:[facility] Start: 09-06-2022 End: 09-08-2022 Evaluation and management of inpatient DR LALI RIVERA . Facility:[facility] Start: 08-27-2022 End: 08-27-2022 ambulatory Ziggy Charlie Other [facility] Other Start: 08-27-2022 Office outpatient ne w 45 minutes Ziggy Charlie [facility] Start: 07-29-2022 End: 07-29-2022 Patient encounter procedure Jacqui Michael [facility] Start: 07-22-[address] BARRY BARBER Facilit y:[facility] Start: 07-08-2022 End: 07-08-2022 Patient encounter procedure XIMENAANNA QUIGLEY [facility] Start: 07-07-2022 End: 07-07-[address] SILVA MAXWELL Facility:[facility] Start: 07-06-2022 End: 07-06-2022 [facility] Start: 06-15-2022 End: 06-16-2022 ambulatory XIMENA QUIGLEY Facility:[facility] Start: 06-14-2022 End: 06-15-2022 ambulatory XIMENA QUIGLEY Facility:[facility] Start: 06-10-2022 End: 06-10-2022 Lab Drop off Jacqui ChrisJesse Michael [facility] Start: 06-10-2022 End: 06-10-2022 Patient encounter procedure Jacqui MJesse Michael [facility] Start: 05-05-2022 End: 05-06-[address] ANITA KEYS Facility:[facility] Start: 04-16-2022 End: 04-16-2022 ambulatory MADI SANCHEZ Facility:[facility] Start: 04-15-2022 End: 04-28-[address] JOSE SON . Facility:[facility] Start: 04-13-2022 End: 04-13-2022 ambulatory [facility] Start: 04-10-2022 End: 04-13-2022 Evaluation and management of inpatient DR JOSE SON . Facility:[facility] Start: 03-08-2022 End: 03-10-[address] BARRY BARBER Facility:[facility] Start: 03-05-2022 End: 03-08-[address] BARRY BARBER Facility:[facility] Start: 03-04-2022 End: 03-04-[address] JOSE OSN . Facility:[facility] Start: 02-27-2022 End: 03-01-[address] JOSE SON . Facility:[facility] Start: 02-25-2022 End: 02-27-2022 Evaluation and management of inpatient DR BARRY BARBER Facility:[facility] Start: 02-16-2022 End: 02-16-2022 Patient encounter procedure Montero ARABELLA [facility] Start: 02-06-2022 End: 02-06-2022 Patient encounter procedure Lani Wasserman [facility] Start: 12-31-2021 End: 05-07-2022 Recurring Kylah BELL [facility] Start: 12-31-2021 End: 12-31-2021 Patient encounter procedure Lani Wasserman [facility] Start: 12-13-2021 End: 12-13-2021 ambulatory Smiley Davila Other [facility] Other Start: 12-13-2021 Office outpatient ne w 20 minutes Smiley Davila [facility] Start: 11-28-2021 End: 11-28-2021 ambulatory JOHN RENEE Facility:H1 Start: 10-07-2021 End: 10-08-[address] MAHAMED RM Facility:[facility]1 Start: 09-23-2021 End: 09-24-[address] MAHAMED RM Facility:H1 Start: 08-24-2017 End: 08-25-2017 Ambulatory KASANDRA BROWN Facility:[facility] Procedures Date Procedure Procedure Detail Performing Clinician Start: 11-08-2023 Urine culture II Barry Barber Work Phone: Start: 11-08-2023 Plain chest X-ray II Da noni Barber Work Phone: Start: 09-08-2023 End: 09-08-2023 Radex hip unilateral with pelvis 2-3 views Ricquie Jesus PA-C Work Phone: Start: 08-18-2023 panoramic radiographic image Emma Zamudio DDS Work Phone: Start: 07-07-2023 End: 07-07-2023 Radiologic examination pelvis 1/2 views Ricquie Jesus PA-C Other Phone: Start: 06-16-2023 ALL BASIC METABOLIC PANEL Austin Rivas MD Work Phone: Start: 06-14-2023 ALL BASIC METABOLIC PANEL Austin Rivas MD Work Phone: Start: 06-11-2023 ALL HGB HCT Jose C Mill er FULL STACK SOFTWARE DEVELOPER Work Phone: Start: 06-09-2023 End: 06-09-2023 Radex hip unilateral with pelvis 2-3 views Ricquie Jesus PA-C Work Phone: Start: 04-29-2023 Echo tthrc r-t 2d w/ wom-mode compl spec&colr d Annika Kaba HEALTH CARE RECRUITER-PARK WORKER SUPERVISOR Work Phone: Start: 04-13-2023 Mammography Doreen 2 Start: 02-22-2023 Transurethral cystoscopy Jacqui Mendiolae Start: 11-21-2022 Plain chest X-ray II Da noni Barber Work Phone: Start: 11-18-2022 Plain chest X-ray II Da noni Barber Work Phone: Start: 09-22-2022 Follow-up visit Follow-up SILVA KOROMA Start: 09-07-2022 Transfusion of Nonau tologous Red Blood Cells into Peripheral Vein, Percutaneous Approach DR MAHAMED RM Start: 02-16-2022 Colonoscopy Colonoscopy Kylah Perez Start: 12-02-2020 Cystoscopy Jacqui Alec Start: 05-30-2020 Mammography Annika Blair h HEALTH CARE RECRUITER-PARK WORKER SUPERVISOR Work Phone: Start: 05-03-2020 Colonoscopic polypectomy Barry Barber Work Phone: Start: 02-02-2020 Colonoscopy Jose Gallito DE OLIVEIRA Work Phone: Cholecystectomy Lani conklin Colonoscopy Lani Wasserman Extraction of wisdom tooth D shelly Barber Work Phone: H/O: hysterectomy Lani veras Hernia repair Barry Barber Work Phone: History of hernia repair Luna Wasserman Hysterectomy Barry Barber Work Phone: Repair of hip Shaye Pittman Small intestine excision Juan Manuel iel Michel Barber Work Phone: Plan of Treatment Date Care Activity Detail Author Start: 02-17-2032 Screening for malignant neoplasm of colon [facility] Start: 02-01-2030 Screening for malignant neoplasm of colon [facility] Start: 10-31-2024 Urine screening for protein Diabetes: Urine Protein Screening [facility] Start: 08-10-2024 Creatinine measurement Basic Metabolic Panel [facility] Start: 06-16-2024 Creatinine measurement Basic Metabolic Panel [facility] Start: 05-18-2024 End: 05-18-2024 Patient encounter procedure 05/18/2024 3:20 PM EST Office Visit [facility] [address] [facility] [address] [place] [address] Colt Thomason DPM [address] [facility] [address] [place] [address] [facility] Start: 05-18-2024 Creatinine measurement [facility] Start: 05-18-2024 Potassium measurement Potassium Level [facility] Start: 05-12-2024 Lipid panel Lipid Profile [facility] Start: 04-29-2024 Echocardiography Echocardiogram [facility] Start: 04-19-2024 Medicare Annual Wellness (AWV) Medicare Annual Wellness (AWV) [facility] Start: 04-17-2024 Hemoglobin A1c measurement Diabetes: Hemoglobin A1C [facility] Start: 04-17-2024 End: 04-17-2024 Patient encounter procedure 04/17/2024 2:00 PM EST Office Visit [facility] [address] [facility] [address] [place] [address] Barry Barber MD [address] [place] [address] [facility] Start: 04-13-2024 Screening for malignant neoplasm of breast [facility] Start: 03-09-2024 End: 03-09-2024 Patient encounter procedure [facility] Comment on above: Xerosis cutis (Primary Dx); Diabetes mellitus due to underlying condition with diabetic polyneuropathy, unspecified whether yeast maker insulin use ([facility]); Pain due to onychomycosis of toenails of both feet Start: 01-24-2024 End: 01-24-2024 Patient encounter procedure 01/24/2024 2:30 PM EDT Office Visit [facility] [address] [facility] [address] [place] [address] Annika Kaba, HEALTH CARE RECRUITER-PARK WORKER SUPERVISOR [address] [facility] [address] [place] [address] [facility] Start: 01-02-2024 Influenza vaccination Influenza Vaccine (#1) [facility] Start: 11-19-2023 Echocardiography Echocardiogram [facility] Start: 11-17-2023 End: 11-17-2023 Patient encounter procedure 11/17/2023 1:30 PM EDT Office Visit [facility] [address] [place] [address] [facility] Start: 11-16-2023 Hemoglobin A1c measurement Hemoglobin A1C [facility] Start: 11-11-2023 [facility] Start: 11-10-2023 [facility] Start: 11-10-2023 [facility] Start: 11-09-2023 Referral to interior surface insulation worker [facility] Start: 11-09-2023 [facility] Start: 11-08-2023 End: 11-08-2023 Hospital admission [facility] Start: 11-08-2023 [facility] Start: 11-08-2023 Bacteria identified in Urine by Culture [facility] Start: 11-08-2023 Urine culture Urine Culture [facility] Start: 09-08-2023 End: 09-08-2023 Patient encounter procedure [facility] Start: 08-19-2023 Glaucoma screening Diabetes: Retinopathy Screening [facility] Start: 08-18-2023 End: 08-18-2023 Patient encounter procedure [facility] Surgery Start: 08-17-2023 Hemoglobin A1c measurement Diabetes: Hemoglobin A1C [facility] Start: 07-26-2023 End: 07-25-2024 Basic metabolic 2000 panel - Serum or Plasma Basic Metabolic Panel Lab Routine Stage 3b chronic kidney disease ([facility]/HCC) Expected: 07/26/2023 (Approximate), Expires: 07/25/2024 [facility] Service Area Work Phone: Comment on above: Expected: 07/26/2023 (Approximate), Expi res: 07/25/2024 Start: 07-07-2023 End: 07-07-2023 Patient encounter procedure [facility] Start: 07-05-2023 End: 07-04-2024 XR Femur - right 2 Views XR FEMUR RIGHT MINIMUM 2 VIEWS Imaging Routine Closed displaced intertrochanteric fracture of right femur, initial encounter ([facility]) Expected: 07/05/2023, Expires: 07/04/2024 [facility] Work Phone: Comment on above: Expected: 07/05/2023, Expires: Start: 07-05-2023 End: 07-04-2024 XR Pelvis Single view XR PELVIS SINGLE VIEW Imaging Routine Closed displaced intertrochanteric fracture of right femur, initial encounter ([facility]) Expected: 07/05/2023, Expires: 07/04/2024 [facility] Work Phone: Comment on above: Expected: 07/05/2023, Expires: Start: 06-09-2023 End: 06-09-2023 Patient encounter procedure [facility] Start: 06-07-2023 End: 06-07-2024 XR Femur - right 2 Views XR FEMUR RIGHT MINIMUM 2 VIEWS Imaging Routine Closed displaced intertrochanteric fracture of right femur, initial encounter ([facility]) Expected: 06/07/2023, Expires: 06/07/2024 [facility] Comment on above: Expected: 06/07/2023, Expires: Start: 06-07-2023 End: 06-07-2024 XR Pelvis and Hip - right Views XR HIP RIGHT W/ PELVIS MIN 2-3 VIEWS Imaging Routine Closed displaced intertrochanteric fracture of right femur, initial encounter ([facility]) Expected: 06/07/2023, Expires: 06/07/2024 [facility] Work Phone: Comment on above: Expected: 06/07/2023, Expires: Start: 05-12-2023 End: 05-12-2023 Patient encounter procedure 05/12/2023 2:30 PM EST Office Visit [facility] [address] [place] [address] [address] [place] [id number] Annika Kaba, HEALTH CARE RECRUITER-PARK WORKER SUPERVISOR [address] [facility] [address] [place], [place] [id number] [facility] Start: 04-29-2023 End: 04-29-2023 Patient encounter procedure 04/29/2023 2:30 PM EST Appointment [facility] [address] [facility] [address] [place] [phone] [facility] Start: 03-30-2023 End: 03-30-2024 Basic metabolic 2000 [...] (CMS/HCC) Anticoagulated Expected: 03/30/2023 (Approximate), Expires: 03/30/2024 [facility] Work Phone: Comment on above: Expected: 03/30/2023 (Approximate), Expi res: 03/30/2024 Start: 03-30-2023 End: 03-30-2025 US Heart Transthoracic Transthoracic Echo (TTE) Complete Echocardiography Routine Nonrheumatic aortic valve stenosis Pulmonary hypertension (CMS/HCC) Expected: 03/30/2023 (Approximate), Expires: 03/30/2025 [facility] Work Phone: Comment on above: Expected: 03/30/2023 (Approximate), Expi res: 03/30/2025 Start: 11-23-2022 Blood chemistry [facility] Start: 11-23-2022 [facility] Start: 11-22-2022 Blood chemistry [facility] Start: 11-22-2022 [facility] Start: 11-21-2022 Blood chemistry [facility] Start: 11-21-2022 End: 11-21-2022 [facility] Start: 11-20-2022 Blood chemistry [facility] Start: 11-20-2022 [facility] Start: 11-19-2022 Referral to jewelry maker [facility] Start: 11-19-2022 Blood chemistry [facility] Start: 11-19-2022 End: 11-19-2022 [facility] Start: 11-18-2022 Hospital admission [facility] Start: 11-18-2022 [facility] Start: 08-18-2022 Glaucoma screening Eye Exam [facility] Start: 10-04-2021 Screening for osteoporosis Bone Density Scan [facility] Start: 05-30-2021 Screening for malignant neoplasm of breast Mammogram [facility] Start: 10-04-2020 Screening for osteoporosis Bone Density Scan [facility] Start: 04-02-2016 Shingles (RZV) Vaccine (2 of 3) Shingles (RZV) Vaccine (2 of 3) [facility] Start: 04-02-2016 Zoster Vaccines (2 of 3) Zoster Vaccines (2 of 3) [facility] Start: 2008 Hepatitis B (HBV) Vaccine (optional start 60+ years) Hepatitis B (HBV) Vaccine (optional start 60+ years) [facility] Start: 2008 Hepatitis B Vaccines (1 of 3 - Risk 3-dose series) Hepatitis B Vaccines (1 of 3 - Risk 3-dose series) [facility] Start: 2008 RSV vaccine (optional 60+ years) RSV vaccine (optional 60+ years) [facility] Start: 1998 Shingles (RZV) Vaccine (1 of 2) Shingles (RZV) Vaccine (1 of 2) [facility] Start: 1993 Screening for malignant neoplasm of colon [facility] Start: 1970 DTaP/Tdap/Td Vaccines (1 - Tdap) DTaP/Tdap/Td Vaccines (1 - Tdap) [facility] Start: 12-08-1967 Hepatitis A (HAV) Vaccine (optional start 19+ years) Hepatitis A (HAV) Vaccine (optional start 19+ years) [facility] Start: 12-08-1967 Hepatitis A Vaccines (1 of 2 - Risk 2-dose series) Hepatitis A Vaccines (1 of 2 - Risk 2-dose series) [facility] Start: 12-08-1967 Urine screening for protein Diabetes: Urine Protein Screening [facility] Start: 1966 Hepatitis C screening [facility] Start: 1966 Tetanus + diphtheria + acellular pertussis vaccine (product) Tdap Booster [facility] Start: 1958 Diabetic foot examination Diabetes: Foot Exam [facility] Start: 1958 Glaucoma screening Diabetes: Retinopathy Screening [facility] Start: 06-09-1949 COVID-19 Vaccine (#1) COVID-19 Vaccine (#1) [facility] Start: 1948 Glaucoma screening Eye Exam [facility] Start: 1948 Urine screening for protein Microalbumin [facility] Start: 1948 Creatinine measurement Creatinine Level [facility] Start: 1948 Diabetic foot examination Foot Exam [facility] Start: 1948 Hemoglobin A1c measurement Diabetes: Hemoglobin A1C [facility] Start: 1948 Lipid panel Lipid Panel [facility] Start: 1948 Medicare Annual Wellness Visit Medicare Annual Wellness Visit (AWV) [facility] Start: 1948 Potassium measurement Potassium Level [facility] Start: 1948 Pulmonary Function Testing [facility] Function Testing [facility] Start: 1948 Screening for malignant neoplasm of colon [facility] 25-hydroxyvitamin D2 [Mass/volume] in Serum or Plasma [facility] 25-hydroxyvitamin D3 [Mass/volume] in Serum or Plasma [facility] 25-Hydroxyvitamin D3+25-Hydroxyvitamin D2 [Mass/volume] in Serum or Plasma [facility] Calcium.ionized [Mass/volume] in Serum or Plasma by Ion-selective membrane electrode (ISE) [facility] Manganese [Mass/volu me] in Urine [facility] Manganese/Creatinine [Mass Ratio] in Urine [facility] Patient Education Heart Failure, Adult (DC) Budesonide and Formoterol Calcium Acetate Famotidine Calcitriol (Systemic) Know your Meds [facility] Work Phone: Patient referral [facility] Work Phone: Renal function 1999 panel - Serum or Plasma [facility] Renal function 1999 panel - Serum or Plasma [facility] End: 04-29-2023 US Heart Transthoracic [facility] Service Area Work Phone: Comment on above: Once for 1 Occurrences starting 04/29/20 until 04/29/2023 [facility] Immunizations Immunization Date Immunization Notes Care Provider Fa cility 05-20-2023 Pneumococcal conjuga te 20 valent (PCV20), polysaccharide [id number] conjugate, adjuvant, PF (TZD=436) Phe 1 [facility] Work Phone: 05-20-2023 tuberculin skin test ; unspecified formulation Phe 1 [facility] Work Phone: 05-18-2023 Hemoglobin A1C Elmo ambrose RN Work Phone: [facility] 03-01-2023 influenza virus vaccine, unspecified formulation Jacqui Lue [facility] 03-01-2023 Influenza, High-dose Seasonal, Quadrivalent, Preservative Free Jose Conti FULL STACK SOFTWARE DEVELOPER Work Phone: [facility] 02-05-2022 influenza virus vaccine, unspecified formulation Jacqui Lue [facility] 02-05-2022 Influenza, High-dose Seasonal, Quadrivalent, Preservative Free Jose Conti FULL STACK SOFTWARE DEVELOPER Work Phone: [facility] 01-31-2022 influenza virus vaccine, unspecified formulation Jacqui Lue [facility] 01-31-2022 influenza, high dose seasonal, preservative-free Barry B Barber Work Phone: [facility] 250 DO Work Phone: 03-05-2021 influenza virus vaccine, unspecified formulation Jacqui Lue [facility] 03-05-2021 influenza, high dose seasonal, preservative-free Barry B Barber Work Phone: [facility] 03-22-2020 influenza virus vaccine, unspecified formulation Jacqui Lue [facility] 03-15-2020 influenza virus vaccine, unspecified formulation Jacqui Lue [facility] 03-15-2020 influenza, high dose seasonal, preservative-free Barry B Barber Work Phone: [facility] 250 DO Work Phone: 02-09-2019 influenza virus vaccine, unspecified formulation Jacqui Lue [facility] 02-09-2019 influenza, high dose seasonal, preservative-free Barry B Barber Work Phone: [facility] 250 DO Work Phone: 02-17-2018 influenza virus vaccine, unspecified formulation Jacqui Lue [facility] 02-17-2018 influenza, high dose seasonal, preservative-free Barry B Barber Work Phone: [facility] 250 DO Work Phone: 01-25-2017 influenza virus vaccine, unspecified formulation Jacqui Lue [facility] 01-25-2017 influenza, high dose seasonal, preservative-free Barry B Barber Work Phone: [facility] 250 DO Work Phone: 02-19-2016 influenza virus vaccine, unspecified formulation Jacqui Lue [facility] 02-19-2016 influenza, injectabl e, quadrivalent, contains preservative Barry B Barber Work Phone: [facility] 250 DO Work Phone: 02-06-2016 zoster vaccine, live Jacqui L ue [facility] 02-03-2016 pneumococcal polysaccharide vaccine, 23 valent Jacqui Lue [facility] 04-12-2015 pneumococcal conjuga te vaccine, 13 valent Jacqui Lue [facility] 01-21-2015 pneumococcal polysaccharide vaccine, 23 valent Elmo Allen RN Work Phone: [facility] 01-21-2015 seasonal influenza, intradermal, preservative free Elmo Allen RN Work Phone: [facility] 02-05-2014 influenza, seasonal, injectable Jose Conti FULL STACK SOFTWARE DEVELOPER Work Phone: [facility] NEGATED: Highlighted row has not occurred!12-31-2021 influenza virus vaccine, unspecified formulation Lani Wasserman [facility] Payers Date Payer Category Payer Unknown 2021 Medicaid [id number] 2014 Unknown [id number] 2011 Medicare [id number] 1959 Medicaid [id number] 2. 16.840.1.389992.19 1959 Medicare [id number] 2.1 6.840.1.735954.19 1959 Self-pay 1959 Unknown [id number] 2.16.8 40.1.215766.19 1948 Unknown [id number] 2.16.84 0.1.562344.3.579.2.593 1948 Unknown [id number] 2.16.84 0.1.155386.3.579.2.593 1948 Unknown [id number] 2.16.84 0.1.694158.3.579.2.593 1948 Unknown [id number] 2.16.84 0.1.909950.3.579.2.593 1948 Unknown [id number] 2.16.84 0.1.045824.3.579.2.593 1948 Unknown [id number] 2.16.84 0.1.996414.3.579.2.593 1948 Unknown [id number] 2.16.84 0.1.451293.3.579.2.593 1948 Unknown [id number] 2.16.84 0.1.784662.3.579.2.593 1948 Unknown [id number] 2.16.84 0.1.460508.3.579.2.593 1948 Unknown [id number] 2.16.84 0.1.200234.3.579.2.593 1948 Unknown [id number] 2.16.84 0.1.539353.3.579.2.593 1948 Unknown [id number] 2.16.84 0.1.600665.3.579.2.593 1948 Unknown [id number] 2.16.84 0.1.459759.3.579.2.593 1948 Unknown [id number] 2.16.84 0.1.646581.3.579.2.593 1948 Unknown [id number] 2.16.84 0.1.074161.3.579.2.593 1948 Unknown [id number] 2.16.84 0.1.988992.3.579.2.593 1948 Unknown [id number] 2.16.84 0.1.662401.3.579.2.593 1948 Unknown [id number] 2.16.84 0.1.772339.3.579.2.593 1948 Unknown [id number] 2.16. 840.1.737638.3.579.2.356 1948 Unknown [id number] 2.16. 840.1.972503.3.579.2.356 1948 Unknown [id number] 2.16. 840.1.420600.3.579.2.356 1948 Unknown [id number] 2.16. 840.1.037299.3.579.2.356 1948 Unknown [id number] 2.. 840.1.071472.3.579.2.356 1948 Unknown [id number] 2.16.8 40.1.258811.3.579.2.1286 1948 Unknown [id number] 2.. 840.1.694665.3.579.2.732 1948 Unknown [id number] 2. 840.1.643211.3.579.2.732 1948 Unknown [id number] 2. 840.1.967185.3.579.2.732 1948 Unknown [id number] 2. 840.1.953234.3.579.2.732 1948 Unknown [id number] 2. 840.1.216487.3.579.2.732 1948 Unknown [id number] 2. 840.1.602468.3.579.2.732 1948 Unknown [id number] 2. 840.1.164446.3.579.2.732 1948 Unknown [id number] 2. 840.1.736763.3.579.2.732 1948 Unknown [id number] . 840.1.904173.3.579.2.732 1948 Unknown [id number] 2.16. 840.1.071729.3.579.2.732 1948 Unknown [id number] 2. 840.1.259089.3.579.2.732 1948 Unknown [id number] 2.16. 840.1.175881.3.579.2.732 1948 Unknown [id number] 2.16. 840.1.908374.3.579.2.732 1948 Unknown [id number] 2.16. 840.1.177920.3.579.2.732 1948 Unknown [id number] 2.16. 840.1.119908.3.579.2.732 1948 Unknown [id number] 2.16. 840.1.276969.3.579.2.732 1948 Unknown [id number] 2.16. 840.1.974383.3.579.2.732 1948 Unknown [id number] 2.16. 840.1.570727.3.579.2.732 1948 Unknown [id number] 2.16. 840.1.521022.3.579.2.732 1948 Unknown [id number] 2.16. 840.1.282947.3.579.2.732 1948 Unknown [id number] 2.16. 840.1.962264.3.579.2.732 1948 Unknown [id number] 2.16.8 40.1.204254.3.579.2.1286 1948 Unknown [id number] 2.16.84 0.1.688804.3.579.2.1286 1948 Unknown [id number] 2.16.840 .1.465033.3.579.2.1286 1948 Unknown [id number] 2.16.84 0.1.631284.3.579.2.1259 1948 Unknown [id number] 2.16.84 0.1.766785.3.579.2.1259 1948 Unknown [id number] 2.16.84 0.1.968838.3.579.2.1259 194 Unknown [id number] 2.16.84 0.1.312353.3.579.2.1259 194 Unknown [id number] 2.16.84 0.1.201251.3.579.2.1259 1948 Unknown [id number] 2.16.84 0.1.201600.3.579.2.1259 1948 Unknown [id number] 2.16.84 0.1.117232.3.579.2.1259 1948 Unknown [id number] 2.16.84 0.1.556141.3.579.2.1259 1948 Unknown [id number] 2.16.84 0.1.832869.3.579.2.1259 194 Unknown [id number] 2.16.84 0.1.954285.3.579.2.125 1948 Unknown [id number] 2.16.84 0.1.737952.3.579.2.1259 1948 Unknown [id number] 2.16.840 .1.960058.3.579.2.1259 1948 Unknown [id number] 2.16.840 .1.055810.3.579.2.1259 1948 Unknown [id number] 2.16.8 40.1.741315.3.579.2.727 1948 Unknown [id number] 2.16.8 40.1.891012.3.579.2.727 1948 Unknown [id number] 2.16.8 40.1.879795.3.579.2.727 1948 Unknown [id number] 2.16.8 40.1.769704.3.579.2.727 1948 Unknown [id number] 2.16.8 40.1.075497.3.579.2.727 Medicare [id number] Unknown [id number] Social History Date Type Detail Facility Start: 03-30-2023 End: 12-06-2023 Sex Assigned At Bridj Other Start: 12-31-2021 Tobacco smoking status Light t obacco smoker (finding) [facility] Tobacco smoking status Never [facility] Start: 11-18-2022 End: 12-09-2023 Tobacco smoking status NHIS Smoker (finding) [facility] Start: 1950 Sex Assigned At Female F [facility] Start: 03-30-2023 End: 12-06-2023 Caffeine use Caffeine use [facility] Comment on above: 2 cups coffee daily most of the time; 1/2 ppd; Start: 12-29-2022 End: 03-15-2024 Tobacco smoking status Heavy tobacco smoker (finding) [facility] Juan Start: 03-30-2023 End: 12-30-2023 Tobacco smoking status NHIS Smokes tobacco daily [facility] History of tobacco use [facility] Work Phone: Start: 03-30-2023 End: 05-13-2023 Tobacco use and exposure Smokeless tobacco non-user [facility] Work Phone: Start: 03-30-2023 Alcohol intake Lifetime non-d jeffy (finding) [facility] Work Phone: Start: 03-30-2023 Gender identity Identifies as female gender (finding) [facility] Work Phone: Start: 03-30-2023 Sexual orientation Heterosexual (fin ding) [facility] Work Phone: Start: 03-20-2023 End: 07-26-2023 Exposure to SARS-CoV-2 (event) Not sure [facility] Start: 05-13-2023 Tobacco smoking stat us NHIS Ex-smoker [facility] Start: 05-19-2023 End: 06-09-2023 Alcohol intake Ex-drinker (finding) [facility] Start: 1948 [...] to buy more. DK or Refused [facility] Start: 07-06-2023 Alcohol Comment Caffeine intak e: 1-2 cups per day, 2-3 cups a week [facility] Medical Equipment Procedure Code Equipment Code Equipment Origin al Text Equipment Identifier Dates Gamma Long Nail Right 10mm X 360mm 130deg Sterile [id number] Start: 05-14-2023 Scr Bn 10.5mm 85 mm Gma Lg Strl [id number] - [id number] Start: 05-14-2023 Inject 1 each un gino the skin in the morning and 1 each before bedtime. [id number] Goals Date Patient Goal Desired Activity /State Functional Status Date Assessment Result Facility 03-15-2024 Functional Status N/A [facility] 11-08-2023 Functional status Patient is Pro gressing Toward Baseline [facility] Work Phone: 09-07-2023 Functional Status N/A [facility] 04-28-2023 Functional Status N/A [facility] 02-12-2023 Functional Status N/A [facility] 02-03-2023 Functional Status N/A [facility] 12-29-2022 Functional Status N/A [facility] 11-21-2022 Functional status Patient at [facility] Work Phone: 07-29-2022 Functional Status N/A [facility] 06-10-2022 Functional Status N/A [facility] 02-16-2022 Functional Status N/A [facility] 12-31-2021 Functional Status N/A [facility] Mental Status Date Assessment Result Facility 11-08-2023 Cognitive function Cognitive Sta tus Patient at Baseline [facility] Work Phone: 11-21-2022 Cognitive function Cognitive Sta s Patient at [facility] Work Phone: Clinical Notes 04-02-2021 to 03-15-2024 Colt Thomason, DEVI - 03/09/2024 3:20 PM EST Note Date & Type Note Facility 03-15-2024 Hospital Discharg e instructions Patient Education 03/15/2024 11:49:59 Urinary Tract Infection, Adult Urinary Tract Infection, [...] Treatment for this condition includes: Antibiotic medicine. Noty-eru-lgfjclp medicines to treat discomfort. Drinking enough water [...] Follow these instructions at home: Medicines Take kzuu-gfs-lewhfzp and prescription medicines only as told by [...] with your health care provider. Document Revised: 11/24/2020 Document Reviewed: 11/29/2020 [employer] Patient Education 2023 [employer]. Follow Up Care 09/07/2023 16:04:03 With:Alec XIE, CARLY [place], URO Address: When: Unknown [facility] 03-15-2024 Note Patient Education Obstetrics and Gynecology Urinary Tract [...] more likely to develop this condition if: ??? You have a urinary catheter that stays in place. ??? You are not able to control when you urinate or have a bowel movement (incontinence). ??? You are female and you: ? Use a spermicide or diaphragm for control. ? Have low estrogen levels. ? Are . ??? You have certain genes that increase your risk. ??? You are sexually active. ??? You take antibiotic medicines. ??? You have a condition that causes your flow of urine to slow down, such as: ? An enlarged prostate, if you are male. ? Blockage in your urethra. ? A kidney stone. ? A nerve condition that affects your bladder control (neurogenic bladder). ? Not getting enough to drink, or not urinating often. ??? You have certain medical conditions, such as: ? Diabetes. ? A weak disease-fighting system (immunesystem). ? Sickle cell disease. ? Gout. ? Spinal cord injury. What are the signs or symptoms? Symptoms of this condition include: ??? Needing to urinate right away (urgency). ??? Frequent urination. This may include small amounts of urine each time you urinate. ??? Pain or burning with urination. ??? Blood in the urine. ??? Urine that smells bad or unusual. ??? Trouble urinating. ??? Cloudy urine. ??? Vaginal discharge, if you are female. ??? Pain in the abdomen or the lower back. You may also have: ??? Vomiting or a decreased appetite. ??? Confusion. ??? Irritability or tiredness. ??? A fever or chills. ??? Diarrhea. The first symptom in older adults may be confusion. In some cases, they may not have any symptoms until the infection has worsened. How is this diagnosed? This condition is diagnosed based on your medical history and a physical exam. You may also have other tests, including: ??? Urine tests. ??? Blood tests. ??? Tests for STIs (sexually transmitted infections). If you have had more than one UTI, a cystoscopy or imaging studies may be done to determine the cause of the infections. How is this treated? Treatment for this condition includes: ??? Antibiotic medicine. ??? Oial-kzr-aicipmm medicines to treat discomfort. ??? Drinking enough water to stay hydrated. If [...] medicines. Follow these instructions at home: Medicines ??? Take anmg-wbg-jdqrbfh and prescription medicines only as told by your health care provider. ??? If you were prescribed an antibiotic medicine, take it as told by your health care provider. Do not stop using the antibiotic even if you start to feel better. General instructions ??? Make sure you: ? Empty your bladder often and completely. Do not hold urine for long periods of time. ? Empty your bladder after sex. ? Wipe from front to back after urinating or having a bowel movement if you are female. Use each tissue only one time when you wipe. ??? Drink enough fluid to keep your urine pale yellow. ??? Keep all follow-up visits. This is important. Contact a health care provider if: ??? Your symptoms do not get better after 1?2 days. ??? Your symptoms go away and then return. Get help right away if: ??? You have severe pain in your back or your lower abdomen. ??? You have a fever or chills. ??? You have nausea or vomiting. Summary ??? A urinary tract infection (UTI) is an infection of any part of the urinary tract, which includes the kidneys, ureters, bladder, and urethra. ??? Most urinary tract infections are caused by bacteria in your genital area. ??? Treatment for this condition often includes antibiotic medicines. ??? If you were prescribed an antibiotic medicine, take it as told by your health care provider. Do not stop using the antibiotic even if you start to feel better. ??? Keep all follow-up visits. This is important. This information is not intended to replace advice given to you by your health care provider. Make sure you di (more content not included)... [facility] 03-09-2024 History of Presen t illness Narrative Patient: Kate Hagen : 1950 PCP: Barry Barber MD SUBJECTIVE This is a 73 y.o. female that presents today with a CC of elongated, thick nails. Pt states nails have been elongated and thick for many years and cause pain with ambulation in shoegear. Pt has tried previous treatment with minimal relief. Pt presents today for nail care and treatment. Patient is DM2 Patient also presents today for follow-up of dry skin and fissures to feet and has periodically been using prescribed or recommended oxab-xce-bghcaej cream with some improvement. Allergies: Allergies Allergen Reactions Bee Venom Other reaction(s): Swelling of body region Grapefruit Extract Unknown Lanolin Naproxen Unknown Other Other Reaction(s): Not available Pineapple Unknown Past Medical History: Past Medical History: Diagnosis Date Acute kidney injury superimposed on CKD ([facility]) 11/18/2023 Anxiety Arthritis Haddad's esophagus CHF (congestive heart failure) ([facility]) CHF exacerbation ([facility]) 11/18/2022 Admitted Chronic cough Colon polyp 05/2017 COPD (chronic obstructive pulmonary disease) ([facility]) COVID-19 Pneumonia, Acute on Chronic Resp. Failure, ELI (04/18/2021-04/22/2021) Depression ([facility]) Diabetes mellitus ([facility]) Gastritis GERD (gastroesophageal reflux disease) History of being hospitalized 03/21/2023 Seizure History of being hospitalized 07/31/2021 Hyperkalemia, Hypocalcemia, Hypomagnesemia, Hypotension, Anemia, Weakness History of being hospitalized 09/01/2021 SOB, CHF, COPD, Anemia History of being hospitalized 09/04/2021 COPD Exacerbation, CHF, UTI, Resp. Failure History of being hospitalized 02/24/2022 COPD Exacerbation, CHF, Acute Renal Failure History of being hospitalized 03/05/2022 CHF, SOB, Anemia, C. diff History of being hospitalized 04/09/2022 UTI, LLL Pneumonia History of being hospitalized 09/06/2022 Acute chronic respiratory failure with hypoxia; Pneumonia History of being hospitalized 11/08/2023 ELI, Hypocalcemia, UTI, Low Mg Hyperlipidemia ([facility]) Hypertension ([facility]) New onset seizure ([facility]) 03/08/2022 Nonalcoholic fatty liver MARGARITA (obstructive sleep apnea) Ventral hernia Medications: Current Outpatient Medications: acetaminophen (Tylenol) 500 MG tablet, Take 1,000 mg by mouth, Disp: , Rfl: albuterol (2.5 MG/3ML) 0.083% nebulizer solution, Take 2.5 mg by nebulization every 6 (six) hours if needed for wheezing or shortness of breath., Disp: , Rfl: albuterol HFA (Ventolin HFA) 90 mcg/act inhaler, Inhale 2 puffs every 4 (four) hours if needed for wheezing or shortness of breath, Disp: 18 g, Rfl: 5 Alcohol Swabs (B-D SINGLE USE SWABS REGULAR) pads, Apply 1 Swab topically 1 (one) time each day., Disp: , Rfl: ALPRAZolam (Xanax) 1 MG tablet, TAKE 1 TABLET BY MOUTH THREE TIMES DAILY NEEDED FOR ANXIETY, Disp: 90 tablet, Rfl: 0 AMINO ACIDS PO, Take 15 g by mouth every 8 (eight) hours., Disp: , Rfl: ammonium lactate (Amlactin) 12 % cream, APPLY IF NEEDED TWICE DAILY TO DRY SKIN ON FEET, Disp: 280 g, Rfl: 0 atorvastatin (Lipitor) 20 MG tablet, Take 1 tablet (20 mg) by mouth Daily, Disp: 90 tablet, Rfl: 3 Brexpiprazole (Rexulti) 1 MG tablet, Take 1 tablet by mouth Daily, Disp: 100 tablet, Rfl: 3 bumetanide (Bumex) 2 MG tablet, TAKE 1 TABLET BY MOUTH IN THE MORNING, Disp: 90 tablet, Rfl: 0 calcitriol (Rocaltrol) 0.5 MCG capsule, Take 0.5 mcg by mouth Daily, Disp: , Rfl: calcium acetate (Phoslo) 667 MG capsule, TAKE 2 CAPSULES BY MOUTH THREE TIMES DAILY WITH MEALS FOR 30 DAYS, Disp: , Rfl: Calcium Carbonate-Vit D-Min (Calcium 600+D Plus Minerals) 600-400 MG-UNIT tablet, Take 1 tablet by mouth in the morning and 1 tablet in the evening., Disp: , Rfl: calcium citrate 333 MG tablet, Take 2 tablets (666 mg) by mouth in the morning and 2 tablets (666 mg) in the evening and 2 tablets (666 mg) before bedtime., Disp: 180 tablet, Rfl: 5 cholecalciferol (Vitamin D-3) 25 MCG (1000 UT) capsule, Take 1 capsule (25 mcg) by mouth Daily, Disp: 90 capsule, Rfl: 3 Continuous Blood Gluc Director Education (FreeStyle Lilliam 2 [place]) device, 1 each in the morning and 1 each at noon and 1 each in the evening and 1 each before bedtime., Disp: 1 each, Rfl: 0 Continuous Blood Gluc Sensor (FreeStyle Lilliam 2 Sensor) misc, 1 each every 14 (fourteen) days, Disp: 6 each, Rfl: 3 denosumab (Prolia) 60 MG/ML solution prefilled syringe, Inject 60 mg under the skin every 6 (six) months., Disp: , Rfl: diphenhydrAMINE (BENADryl) 25 MG capsule, Take 25 mg by mouth as needed at bedtime for itching or allergies., Disp: , Rfl: dulaglutide (Trulicity) 0.75 MG/0.5ML solution pen-injector, Inject 0.75 mg under the skin 1 (one) time per week, Disp: , Rfl: Eliquis 2.5 MG tablet, Take 2.5 mg by mouth in the morning and 2.5 mg before bedtime., Disp: , Rfl: estradiol (Estrace) 0.1 MG/GM vaginal cream, APPLY A PEA SIZE AMOUNT TO URETHRA OR INNER VAGINA 3 TIMES A WEEK FOR 1 MONTH THEN 2 TIMES A WEEK FOR MAINTENANCE, Disp: , Rfl: famotidine (Pepcid) 20 MG tablet, Take 20 mg by mouth Daily, Disp: , Rfl: Farxiga 10 MG, TAKE 1 TABLET BY MOUTH IN THE MORNING, Disp: 30 tablet, Rfl: 0 FLUoxetine (PROzac) 40 MG capsule, Take 1 capsule (40 mg) by mouth in the morning., Disp: 100 capsule, Rfl: 3 Fluticasone-Salmeterol (Advair Diskus) 250-50 MCG/ACT aerosol powder , Inhale 1 puff every 12 (twelve) hours, Disp: 1 each, Rfl: 5 hyoscyamine (Levsin) 0.125 MG SL tablet, Take 1 tablet (0.125 mg) by mouth every 6 (six) hours if needed for cramping, Disp: 60 tablet, Rfl: 2 Lactobacillus pack, Take 1 tablet by mouth every 8 (eight) hours., Disp: , Rfl: levETIRAcetam (Keppra) 250 MG tablet, Take 1 tablet (250 mg) by mouth in the morning and 1 tablet (250 mg) before bedtime., Disp: 200 tablet, Rfl: 3 MAGnesium-Oxide 400 (240 Mg) MG tablet, Take 1 tablet by mouth twice daily, Disp: 180 tablet, Rfl: 3 metoprolol tartrate (Lopressor) 50 MG tablet, Take 1 tablet by mouth twice daily, Disp: 180 tablet, Rfl: 3 Multiple Vitamins-Minerals (EYE VITAMINS PO), Take 1 tablet by mouth 1 (one) time each day, Disp: , Rfl: Myrbetriq 50 MG 24 hr tablet, Take 50 mg by mouth Daily, Disp: , Rfl: oxygen (O2) gas, Inhale 3 L/min continuously. via nasal canula, Disp: , Rfl: pantoprazole (ProtoNix) 40 MG EC tablet, Take 1 tablet (40 mg) by mouth in the morning and 1 tablet (40 mg) before bedtime., Disp: 180 tablet, Rfl: 3 potassium chloride CR (K-Tab) 20 MEQ ER tablet, Take 1 tablet (20 mEq) by mouth Daily, Disp: 100 tablet, Rfl: 3 promethazine (Phenergan) 25 MG tablet, TAKE 1 TABLET BY MOUTH EVERY 6 HOURS NEEDED FOR NAUSEA FOR VOMITING, Disp: 120 tablet, Rfl: 0 SV Iron 325 (65 Fe) MG tablet, , Disp: , Rfl: tiZANidine (Zanaflex) 4 MG tablet, Take 1 tablet (4 mg) by mouth every 8 (eight) hours if needed for muscle spasms, Disp: 90 tablet, Rfl: 2 Social History: Social History Socioeconomic History Marital status: Spouse name: Not on file Number of children: Not on file Years of education: Not on file Highest education level: Not on file Occupational History Not on file Tobacco Use Smoking status: Every Day Current packs/day: 1.00 Average packs/day: 1 pack/day for 50.0 years (50.0 ttl pk-yrs) Types: Cigarettes Smokeless tobacco: Never Substance and Sexual Activity Alcohol use: Not Currently Alcohol/week: 2.0 standard drinks of alcohol Types: 2 Standard drinks or equivalent per week Comment: Caffeine intake: 1-2 cups per day, 2-3 cups a week Drug use: Never Sexual activity: Defer Partners: Decline to Answer Other Topics Concern Not on file Social History Narrative Not on file Social Drivers of Health Financial Resource Strain: Medium Risk (12/06/2023) Overall Financial Resource Strain (CARDIA) Difficulty of Paying Living Expenses: Somewhat hard Food Insecurity: No Food Insecurity (12/06/2023) Hunger Vital Sign Worried About Running Out of Food in the Last Year: Never true Ran Out of Food in the Last Year: Never true Transportation Needs: No Transportation Needs (12/06/2023) PRAPARE - Transportation Lack of Transportation (Medical): No Lack of Transportation (Non-Medical): No Physical Activity: Insufficiently Active (12/06/2023) Exercise Vital Sign Days of Exercise per Week: 7 days Minutes of Exercise per Session: 10 min Stress: Stress Concern Present (12/06/2023) [employer] [place] [employer] - Occupational Stress Questionnaire Feeling of Stress : To some extent Social Connections: Socially Isolated (12/06/2023) Social Connection and Isolation Panel [NHANES] Frequency of Communication with Friends and Family: Once a week Frequency of Social Gatherings with Friends and Family: Three times a week Attends Judaism Services: Never Active Member of Clubs or Organizations: No Attends Club or Organization Meetings: Never Marital Status: Intimate Partner Violence: Not At Risk (12/06/2023) Humiliation, Afraid, Rape, and Kick questionnaire Fear of Current or Ex-Partner: No Emotionally Abused: No Physically Abused: No Sexually Abused: No Housing Stability: Low Risk (12/06/2023) Housing Stability Vital Sign Unable to Pay for Housing in the Last Year: No Number of Times Moved in the Last Year: 0 Homeless in the Last Year: No ROS: General: denies fever, chills, fatigue, malaise OBJECTIVE LE EXAM: DERM: Elongated thick yellow crumbly nails digits 1 through 10. Negative hair growth with thin shiny atrophic skin bilaterally. Diminished dry skin to feet bilaterally VASC: positive DP and negative PT pedal pulses NEURO: 5.07 Mitchell Earnest monofilament test intact to digits and forefoot bilaterally 125Hz tuning fork diminished to 1st MPJ bilaterally ORTHO: Positive pain on palpation to nails 1 through 10 ASSESSMENT 1. Xerosis cutis 2. Diabetes mellitus due to underlying condition with diabetic polyneuropathy, unspecified whether mcfp insulin use ([facility]) 3. Pain due to onychomycosis of toenails of both feet PLAN Discussed proper foot care with patient today. Debride nails in length and thickness digits 1 through 10 Patient educated today on proper diabetic foot care including monitoring feet daily for any signs of infection openings in the skin or irregularities to both feet. Patient had a diabetic neurological exam today to both their feet and discussed proper shoe gear. Patient to continue with creams to feet daily and offered refill today of prescription for patient to call if needed. Colt Thomason DPM documented in this encounter [facility] 11-11-2023 Discharge summary Note Date/Time November 11, 2023 1:49pm [facility] [address] [place] [address] Discharge Summary Signed with Colby Patient: Kate Hagen MR#: [id number] : 1950 Acct:[id number] Age/Sex: 72 / F Adm Date: 4 Loc: Room: [address] [place] [address]: Barbi Hernandez MD Copies to: MD Barbi Arambula II, MD~ ADDENDUM1 Spoke to Dr[address] Pearson, nephrology, will hold on bumex and metolaone as pt's BP waswell controlled and fluids improved her clinical status as well as she did not appear fluid overloaded or congested on exam today. Will hold the meds for now until she sees nephrology as outpatient, and adjustments will be made to her regimen accordingly. Addendum Documented By: Barbi Hernandez MD 11/11/231651 Addendum Signed By: <Electronically signed by Barbi Hernandez MD> 11/11/23 1652 Providers Date of Discharge: 11/11/23 Discharging Provider: Barbi Hernandez Primary Care Provider: Barry Barber Consults: 11/09/23 13:20 Consult to Nephrology Routine Comment: Consulting Provider: Shalonda Pearson Has Provider Been Notified: Yes Date of Notification: 11/09/23 Time of Notification: 13:32 Reason for Consult: Hyper/Hypo Calcemia Discharge Diagnosis (1) Secondary hyperparathyroidism (of renal origin): (2) Acute kidney injury superimposed on CKD: (3) Hypocalcemia: (4) Hypomagnesemia: (5) Anemia of renal disease: Final Diagnosis Final Discharge Diagnosis: Acute Renal failure on CKD with acute hypocalcemia Summary Hospital Course Hospital course: This is a 72 y.o female, with a past medical history of CKD, COPD, atrial fibrillation, type 2 diabetes, HTN, and pulmonary HTN. Presented with abnormal labs concerning for a very acute hypocalcemia and worsening renal function. She was having symptoms involving dizziness, weakness, confusion, numbness, and tingling of both hands. her eletctrolyes were being repleted. 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 As per nephrolog, who were consulted during the pt's hospital stay, Patient stable from renal point adry discharged home. She need to follow-up in renal clinic for management of CKDand hyperparathyroidism in 2 to 3 weeks. Will need to get renal panel and CBC in 2 to 3 weeks to adjust calcium supplements and calcitriol as indicated. For her C. diff, will continue her vancomycin PO to complete her 14 days course and she was advised to follow up with pt upon discharge. Condition Condition at Discharge: Stable Status at Discharge Overall status at discharge: patient is back to baseline Time Spent with Patient Time spent providing/coordinating discharge services (# min): 40 Discharge Plan Discharge Plan Patient Disposition: Home Health Services Activity: Ambulate as Tolerated Diet: Renal Additional Instructions: Continue CPAP and oxygen as per chronic orders. Home health to manage: -RN/Aide to eval and treat -Monitor VS per protocol -Fall precautions -Perform genitourinary assessments -Assist with medication management and education -Obtain renal function panel and CBC as ordered-- results to -Monitor intake and output -Continue CPAP and oxygen as per chronic orders Instructions: Heart Failure, Adult (DC), Know your Meds Prescriptions: No Action fluoxetine 40 mg capsule 40 mg PO DAILY Patient Comments: TAKE 1 CAPSULE BY MOUTH ONCE DAILY IN THE MORNING cyclobenzaprine 10 mg tablet 10 mg PO TID Patient Comments: TAKE 1 TABLET BY MOUTH THREE TIMES DAILY fluticasone propion-salmeterol [Advair Diskus] 250-50 mcg/dose blister with device 2 inh INHALATION QID bumetanide 2 mg tablet 2 mg PO BID Patient Comments: TAKE 1 TABLET BY MOUTH IN THE MORNING ammonium lactate 12 % lotion 1 applic TOPICAL BID PRN (Reason: dry skin) Patient Comments: APPLY LOTION EXTERNALLY TWICE DAILY FOR 30 DAYS alprazolam 1 mg tablet 1 mg PO TID PRN (Reason: Anxiety) Patient Comments: TAKE 1 TABLET BY MOUTH TWICE DAILY NEEDED FOR ANXIETY tizanidine 4 mg tablet 4 mg PO TID PRN (Reason: Spasms) Patient Comments: TAKE 1 TABLET BY MOUTH THREE TIMES DAILY NEEDED FOR MUSCLE SPASM FOR 30 DAYS hydrocodone-acetaminophen 5-325 mg tablet 1 tab PO Q6HR PRN (Reason: Pain) magnesium oxide 400 mg (241.3 mg magnesium) tablet 400 mg PO BID Patient Comments: TAKE 1 TABLET BY MOUTH TWICE DAILY metoprolol tartrate 50 mg tablet 50 mg PO BID Patient Comments: TAKE 1 TABLET BY MOUTH TWICE DAILY FOR 90 DAYS albuterol sulfate [Ventolin HFA] 90 mcg/actuation HFA aerosol inhaler 1 inh INHALATION Q4HR Patient Comments: INHALE 1 PUFF BY MOUTH EVERY 4 HOURS NEEDED Eliquis 5 mg tablet 2.5 mg PO BID Rexulti 1 mg tablet 1 mg PO QHS Patient Comments: TAKE 1 TABLET BY MOUTH ONCE DAILY FOR 90 DAYS dapagliflozin propanediol [Farxiga] 10 mg Tablet 10 mg PO DAILY Trulicity 0.75 mg/0.5 mL pen injector 0.75 mg SUBCUT QWEEK Patient Comments: INJECT 1 DOSE SUBCUTANEOUSLY ONCE A WEEK albuterol sulfate 2.5 mg /3 mL (0.083 %) solution for nebulization 2.5 mg inhalation Q6H Patient Comments: USE 1 VIAL IN NEBULIZER EVERY 6 HOURS NEEDED metolazone 2.5 mg Tablet 2.5 mg PO DAILY@0730 30 Days Qty: 30 12RF ondansetron 4 mg tablet,disintegrating 4 mg PO Q6HR PRN (Reason: nausea and vomiting) hyoscyamine sulfate 0.125 mg tablet, sublingual 0.125 mg sublingual Q6HR PRN (Reason: stomach upset) levetiracetam [Keppra] 250 mg tablet 250 mg PO BID atorvastatin 20 mg tablet 20 mg PO DAILY Rx Instructions: FreeTextSi tablet Orally Once a day; Note: Source Status: Taking; Provider: Charlie Trinh ( ) estradiol [Divigel] 0.25 mg/0.25 gram (0.1 %) gel in packet 0.25 mg transdermal .2times week pantoprazole 40 mg tablet,delayed release (DR/EC) 40 mg PO BID promethazine 25 mg tablet 25 mg PO Q6HR PRN (Reason: nausea and vomiting) acetaminophen 500 mg capsule 1,000 mg PO Q6HR PRN (Reason: pain) Amino Acid Capsule PO Q8HR Rx Instructions: 15 grams ferrous sulfate 325 mg (65 mg iron) tablet 325 mg PO BID Lactobacillus acidophilus Capsule See Rx Instructions PO Q8HR Rx Instructions: Unknown strength mirabegron [Myrbetriq] 50 mg tablet extended release 24 hr 50 mg PO DAILY multivitamin Tablet 1 tab PO DAILY potassium chloride 20 mEq tablet extended release 20 meq PO DAILY calcium citrate 200 mg (950 mg) tablet 200 mg PO TID Rx Instructions: 2 tabs TID cholecalciferol (vitamin D3) 25 mcg (1,000 unit) capsule 25 mcg PO DAILY levofloxacin 750 mg tablet 750 mg PO DAILY vancomycin 250 mg capsule 250 mg PO TID Other Ambulatory Orders: Initiate Home Health (Routine) Timeframe: 20231111 Location: Determined by Patient Ordered By: Barbi Hernandez Complete Blood Count Auto Diff (Routine) Timeframe: 3 Weeks Location: Determined by Patient Ordered By: Barbi Hernandez Renal Function Panel (Routine) Timeframe: 3 Weeks Location: Determined by Patient Ordered By: Barbi Hernandez Follow Up: Shalonda Pearson MD [Active Staff] - 12/09/23 3:00 pm (You have been scheduled for a follow up appointment for the following date and time, please call to reschedule if needed.) Barry Barber II, MD [Primary Care Provider] - 11/18/23 11:30 am (You have been scheduled for a follow up appointment for the following date and time, please call to reschedule if needed. This appointment will be with this nurse practitioner. ) Exam Physical Exam Vital Signs: Temp Pulse Resp BP Pulse Ox O2 Del Method O2 Flow Rate 97.6 F 102 H 18 124/74 97 Nasal Cannula 3 11/11/23 11:32 11/11/23 11:32 11/11/23 11:32 11/11/23 11:32 11/11/23 11:32 11/11/23 11:32 11/11/23 11:32 Narrative: General: Alert and awake, oriented, pleasant and cooperative HEENT: No thyromegaly, no lymphadenopathy Chest: Good bilateral air entry, no wheezes or crackles CVS: Normal S1 and S2, no murmurs Abdomen: Soft, non tender, no organomegaly Extremities: Normal peripheral pulses Neuro: Pt is able to move her extremities, she has no motor or sensory deficits Diagnostic Studies Completed and Pending Studies Pending studies at discharge: 11/08/23 14:51 Urine Culture Stat 11/10/23 05:24 Vitamin D 25 Hydroxy,Tot+D2+D3 IN AM 11/10/23 14:50 Manganese Urine, random Routine 11/12/23 05:00 Basic Metabolic Panel [CHEM] IN AM Calcium [CHEM] IN AM Magnesium [CHEM] IN AM PHOS [Phosphorus] [CHEM] IN AM 11/13/23 05:00 Basic Metabolic Panel [CHEM] IN AM Calcium [CHEM] IN AM Magnesium [CHEM] IN AM PHOS [Phosphorus] [CHEM] IN AM 11/14/23 05:00 Basic Metabolic Panel [CHEM] IN AM Calcium [CHEM] IN AM Magnesium [CHEM] IN AM PHOS [Phosphorus] [CHEM] IN AM Preliminary micro results at discharge 11/08/23 14:51 Urine Culture - Preliminary Urine - Voided Yeast Like Organism Labs on day of discharge: 11/11/23 06:43: Corrected WBC 9.3, Uncorrected WBC Count 9.3, RBC 3.19 L, Hgb 9.8 L, Hct 29.1 L, MCV 91.4, MCH 30.6, MCHC 33.5, RDW 17.3 H, Plt Count 139 L, MPV 7.3, Neut % (Auto) 80.3, Lymph % (Auto) 13.2, [place] % (Auto) 5.2, Eos % (Auto) 1.1, Baso % (Auto) 0.2, Nucleat RBC Rel Count 0.0, Neut # (Auto) 7.5, Lymph # (Auto) 1.2, [place] # (Auto) 0.5, Eos # (Auto) 0.1, Baso # (Auto) 0.0, PHA Creatinine Clear 24.21, Sodium 139, Potassium 4.0, Chloride 95 L, Carbon Dioxide 31.6 H, Anion Gap 16.4 H, BUN 35 H, Creatinine 1.71 H, Est GFR (CKD-EPI) 31.054, Glucose 110 H, Calcium 7.5 L, Phosphorus 4.8 H, Magnesium 2.0 11/10/23 14:50: Ur Random Creatinine 47.00 11/08/23 13:34: Ionized Calcium <3.0 L Documented By: Barbi Hernandez MD 11/11/23 1341 Signed By: <Electronically signed by Barbi Hernandez MD> 11/11/23 1149 [facility] Work Phone: [phone]) [phone] Progress note [facility] November 11, 2023 12:24pm Note Date/Time November 11, 2023 12:2 4pm [facility] [address] [place] [address] Nephrology Progress Note Signed Patient: Kate Hagen MR#: [id number] : 1950 Acct:[id number] Age/Sex: 72 / F Adm Date: 4 Loc: Room: [address] [place] [address] Type: ADM IN Attending Dr: Barbi Hernandez MD Copies to: ~ Date of Service: 11/11/2023 Subjective Subjective Narrative: Patient is a 72-year-old female with medical history significant for CKD, COPD, A-fib, CHF, DM, HTN, pulmonary hypertension. She reports taking all medicationsas prescribed. She presented to the ED 11/07 for abnormal outpatient labs. Her jewelry maker stated that her calcium is dangerously low and she had to come intothe emergency department. She was symptomatic with dizziness, weakness, confusion, numbness and tingling of her hands. Upon evaluation in ER, her calcium was 4.0 mg/DL. Her creatinine was 2.14 and potassium 3.2. Magnesium was 0.9 requiring supplementation. She reports that she saw Dr. Dean 3 years ago for CKD but she has been unable to see him again due to many hospitalizations for CHF. She is currently on water restriction. It was reported that the patient had an episode of C. difficile and she has been on oral vancomycin at home. She still has loose stool however it is improving. Interval history: Patient is up in the chair, denies any complaints. Renal function continue improve with creatinine 1.71, calcium is up to 7.5 and phosphorus down to 4.8 on phosphate binders and calcitriol. Magnesium did improve with IV supplements. Protonix was stopped and will be replaced with H2 georgie since she has no history of GI bleeding or peptic ulcerdisease. Patient denies any more twitches. No shortness of breath. No nausea or vomiting. No chest pain. No urinary symptoms Exam Physical Exam Vital Signs: Temp Pulse Resp BP Pulse Ox O2 Del Method O2 Flow Rate 36.4 C 102 H 18 124/74 97 Nasal Cannula 3 11/11/23 11:32 11/11/23 11:32 11/11/23 11:32 11/11/23 11:32 11/11/23 11:32 11/11/23 11:11/11/23 11:32 Narrative: Constitutional: Up in chair, feels better. HEENT: Normocephalic, atraumatic. No jaundice, cyanosis. Moist mucous membranes Neck: Trachea midline Cardiovascular: Regular rate and rhythm, no murmurs. No JVD Respiratory: Clear air movement with no rales, crackles, or wheezes. Normal effort Gastrointestinal: Nondistended, nontender, no masses or organs palpated. Bowel sounds present. No flank pain Skin: No rashes, ecchymosis Neuro: Patient alert, awake, oriented x 3 Extremities: No edema. Psych: Normal affect Objective Intake and Output I&O: Intake & Output 11/08/23 11/09/23 11/10/23 11/11/23 23:59 23:59 23:59 23:59 Intake Total 700 / 700 1700 / 1700 950 / 950 Output Total 300 / 300 Balance 400 / 400 1700 / 1700 950 / 950 Weight 68.7 kg 68.4 kg 64.3 kg 64.6 kg Meds and Allergies Meds: Active Medications Acetaminophen (Acetaminophen 325 Mg Tablet) 650 mg PO Q6H PRN PRN Reason: Pain Stop: 11/08/24 08:52 Last Admin: 11/10/23 18:17 Dose: 650 mg Albuterol (Albuterol Hfa 60 Puff/8 Gram Inhaler) 1 puff INHALATION Q4HR PRN PRN Reason: shortness of breath Stop: 11/09/24 17:59 Alprazolam (Alprazolam 0.5 Mg Tablet) 1 mg PO TID PRN PRN Reason: Anxiety Stop: 05/06/24 23:01 Last Admin: 11/11/23 08:59 Dose: 1 mg Apixaban (Apixaban 2.5 Mg Tablet) 2.5 mg PO BID OSC[facility] Stop: 11/07/24 21:29 Last Admin: 11/11/23 08:56 Dose: 2.5 mg Atorvastatin Calcium (Atorvastatin 20 Mg Tablet) 20 mg PO QHS OSCAR Stop: 11/08/24 21:59 Last Admin: 11/10/23 21:41 Dose: 20 mg Brexpiprazole (Brexpiprazole 1 Mg Tablet) 1 mg PO QHS [facility]SC[facility] Stop: 11/07/24 21:59 Last Admin: 11/10/23 21:40 Dose: 1 mg Budesonide/Formoterol Fumarate (Budesonide/Formoterol 160-4.5 Mcg 60 Puff/6 Gm Hfa.Aer.Ad) 2 puff INHALATION BID OSCAR Stop: 11/09/24 20:59 Last Admin: 11/11/23 08:42 Dose: 2 puff Calcitriol (Calcitriol 0.5 Mcg Capsule) 0.5 mcg PO DAILY [facility] Stop: 11/08/24 14:39 Last Admin: 11/11/23 08:56 Dose: 0.5 mcg Calcium Acetate (Calcium Acetate 667 Mg Capsule) 1,334 mg PO TID.WITH.MEALS [facility]SC[facility] Stop: 11/08/24 16:59 Last Admin: 11/11/23 11:34 Dose: 1,334 mg Calcium Carbonate (Calcium Carbonate 500 Mg Tablet) 500 mg PO TID [facility] Stop: 11/08/24 21:59 Last Admin: 11/11/23 08:56 Dose: 500 mg Fluoxetine HCl (Fluoxetine 20 Mg Capsule) 40 mg PO DAILY [facility] Stop: 11/08/24 08:59 Last Admin: 11/11/23 08:59 Dose: 40 mg Levetiracetam (Levetiracetam 250 Mg Tablet) 250 mg PO BID [facility] Stop: 11/07/24 21:34 Last Admin: 11/11/23 08:56 Dose: 250 mg Magnesium Oxide (Magnesium Oxide 400 Mg Tablet) 400 mg PO BID [facility] Stop: 11/08/24 08:59 Last Admin: 11/11/23 08:56 Dose: 400 mg Metoprolol Tartrate (Metoprolol Tartrate 50 Mg Tablet) 50 mg PO BID [facility] Stop: 11/07/24 21:34 Last Admin: 11/11/23 08:56 Dose: 50 mg Ondansetron HCl (Ondansetron 4 Mg/2 Ml Vial) 4 mg IV-PUSH Q8H PRN PRN Reason: Nausea And Vomiting Stop: 11/09/24 12:35 Last Admin: 11/10/23 14:28 Dose: 4 mg Potassium Chloride (Potassium Chloride Er 20 Meq Tab.Er.Prt) 20 meq PO DAILY [facility]SC[facility] Stop: 11/08/24 08:59 Last Admin: 11/11/23 08:56 Dose: 20 meq Sodium Chloride (Sodium Chloride 0.9 % 10 Ml Syringe) 0 ml IV-PUSH PRN PRN PRN Reason: Flush Stop: 11/07/24 11:51 Last Admin: 11/10/23 14:28 Dose: 10 ml Vancomycin HCl (Vancomycin 250 Mg Capsule) 250 mg PO QID OSCAR Stop: 11/14/23 17:59 Last Admin: 11/11/23 08:56 Dose: 250 mg Allergies bee venom protein (honey bee) Allergy (Unknown, Verified 11/08/23 11:53) Anaphylaxis grapefruit Allergy (Unknown, Verified 11/08/23 11:53) rash naproxen Allergy (Unknown, Verified 11/08/23 11:53) Unknown Reaction pinneapple Allergy (Unknown, Uncoded 08/27/22 15:04) rash virgin wool Allergy (Unknown, Uncoded 11/08/23 11:53) Unknown Reaction Results - Nephrology Labs 11/11/23 06:43 11/11/23 06:43 Labs: 11/11/23 06:43 BUN 35 H Creatinine 1.71 H Phosphorus 4.8 H Radiology Impressions Impressions - last 24 hours: Any impression(s) listed above is documentation that was entered by the reading physician into a diagnostic report(s) for Kate Hagen. I have reviewed the report(s) and am incorporating any findings in the treatment plan of this patient where applicable. A&P - Nephrology Assessment/Plan (1) Secondary hyperparathyroidism (of renal origin): Plan: Patient presented with severe hypomagnesemia and hypophosphatemia in the settingof progressing CKD. She failed to follow-up in renal clinic and she has not been on phosphate binders or calcitriol. Intact PTH is significantly elevated with hyperphosphatemia suggestive of secondary parathyroidism of renal origin. Hypercalcemia was exacerbated by hypomagnesemia related to her recent C. difficile colitis (2) Acute kidney injury superimposed on CKD: Plan: Creatinine is elevated on admission possibly component of volume depletion as itis improved down to 2.19. Patient has progressive CKD, creatinine has been variable between 1.5 to 1.8 mg/dL since 2021. Patient has diabetes and hypertension possibly as a reason for CKD. (3) Hypocalcemia: Plan: Hypercalcemia in the setting of secondary parathyroidism and hypomagnesemia. Patient had twitches on admission that is improving with supplements. Ionized calcium still pending. (4) Hypomagnesemia: Plan: Hypomagnesemia possibly related to decreased oral intake and recent diarrhea. Has been on PPI that will be replaced with H2 georgie at the time of discharge. (5) Anemia of renal disease: Plan: Patient has anemia in setting of chronic kidney disease, hemoglobin at target between 9.5 and 11 g/dL. Plan * Calcium did improve up to 7.5 mg/dL. She has no more hypocalcemic symptoms. Continue current dose of calcitriol, calcium acetate and calcium carbonate. * Renal function at baseline. * Magnesium did improve with supplements. Protonix will be switched to H2 georgie at the time of discharge * Patient has mild anemia in setting of chronic kidney disease. She has low iron stores with iron saturation 6.8%, ferritin 822. B12 is borderline at 320. Will add multivitamins and iron orally once a day. Patient stable from renal point to be discharged home. She need to follow-up inrenal clinic for management of CKD and hyperparathyroidism in 2 to 3 weeks. Please get renal panel and CBC in 2 to 3 weeks to adjust calcium supplements andcalcitriol as indicated. Documented By: Shalonda Pearson MD 11/11/23 1217 Signed By: <Electronically signed by MD Shalonda Pearson> 11/11/23 7[address] [facility] Work Phone: 1(725) 361-228307-10-2024 Progress note Author Nickie Clay [facility] November 10, 2023 3:14pm Note Date/Time November 10, 2023 3:14 pm [facility] [address] [place] [address] Hospitalist Progress Note Signed Patient: Kate Hagen MR#: [id number] : 1950 Acct:[id number] Age/Sex: 72 / F Adm Date: 4 Loc: 3T Room: [address] [place] [address] Type: ADM IN Attending Dr: Nickie Clay MD Copies to: ~ Date of Service: 11/10/2023 Subjective Subjective Narrative: On examination patient sitting on chair and appears slightly tachypneic which asper the patient is chronic given history of COPD. She also has chronic respiratory failure on 3 L oxygen. Daughter present the room and concerned about patient still being weak with her abnormal electrolytes. Discussed with daughter and patient importance of follow-up with nephrology given chronic kidney disease with severe hypocalcemia and other electrolyte abnormality. Assessment and plan: 1. Hypocalcemia 2. Secondary hyperparathyroidism 3. Acute kidney injury on chronic kidney disease 4. Hypomagnesemia 5. Prolonged QTc interval 6. Anemia 7. Chronic hypoxic respiratory failure 8. Chronic diastolic congestive heart failure 9. Aortic stenosis 10. Type 2 diabetes mellitus 11. Pulmonary hypertension, severe Renal function improving as well as calcium level. Will replace magnesium. Urine culture growing yeastlike organism and denies any complaint. Continue Eliquis, calcitriol, calcium acetate and calcium carbonate. Continue Keppra, metoprolol and fluoxetine. No prior history of GI bleed or peptic disease and will discontinue PPI. Can be switched to H2 georgie on discharge. Exam Physical Exam Vital Signs: Temp Pulse Resp BP Pulse Ox O2 Del Method O2 Flow Rate 98.5 F 81 18 140/63 99 Nasal Cannula 3 11/10/23 12:24 11/10/23 12:24 11/10/23 12:24 11/10/23 12:24 11/10/23 12:24 11/10/23 12:25 11/10/23 12:25 Const Orientation: alert and awake Resp Effort & Inspection: normal respiratory effort and able to speak in complete sentences Auscultation: no rales, no rhonchi and no wheezes Cardio Rate: regular rate Rhythm: regular rhythm Heart Sounds: S1 normal and S2 normal GI Palpation: soft, not firm, no guarding and nontender Neuro General: patient alert, patient awake, patient oriented x3, moves all extremities, no focal motor deficits and CN's II-XI intact bilaterally Objective Lab Results 11/09/23 06:22 11/10/23 05:24 Microbiology Results Microbiology 11/08/23 14:51 Urine - Voided Urine Culture - Preliminary Yeast Like Organism Meds Allergies and Active Meds Allergies bee venom protein (honey bee) Allergy (Unknown, Verified 11/08/23 11:53) Anaphylaxis grapefruit Allergy (Unknown, Verified 11/08/23 11:53) rash naproxen Allergy (Unknown, Verified 11/08/23 11:53) Unknown Reaction pinneapple Allergy (Unknown, Uncoded 08/27/22 15:04) rash virgin wool Allergy (Unknown, Uncoded 11/08/23 11:53) Unknown Reaction Active Meds: Active Medications Generic Name Dose Route Start Last Admin Trade Name Freq PRN Reason Stop Dose Admin Acetaminophen 650 mg 11/09/23 08:53 11/10/23 00:16 Acetaminophen 325 Mg Tablet PO 11/08/24 08:52 650 mg Q6H PRN Administration Pain Alprazolam 1 mg 11/08/23 23:02 11/09/23 22:13 Alprazolam 0.5 Mg Tablet PO 05/06/24 23:01 1 mg TID PRN Administration Anxiety Apixaban 2.5 mg 11/08/23 21:30 11/10/23 09:09 Apixaban 2.5 Mg Tablet PO 11/07/24 21:29 2.5 mg BID OSCAR Administration Atorvastatin Calcium 20 mg 11/09/23 22:00 11/09/23 22:12 Atorvastatin 20 Mg Tablet PO 11/08/24 21:59 20 mg QHS OSCAR Administration Brexpiprazole 1 mg 11/08/23 22:00 11/09/23 22:13 Brexpiprazole 1 Mg Tablet PO 11/07/24 21:59 1 mg QHS OSCAR Administration Calcitriol 0.5 mcg 11/09/23 14:40 11/10/23 09:09 Calcitriol 0.5 Mcg Capsule PO 11/08/24 14:39 0.5 mcg DAILY OSCAR Administration Calcium Acetate 1,334 mg 11/09/23 17:00 11/10/23 12:27 Calcium Acetate 667 Mg Capsule PO 11/08/24 16:59 1,334 mg TID.WITH.MEALS OSCAR Administration Calcium Carbonate 500 mg 11/09/23 22:00 11/10/23 09:09 Calcium Carbonate 500 Mg Tablet PO 11/08/24 21:59 500 mg TID OSCAR Administration Fluoxetine HCl 40 mg 11/09/23 09:00 11/10/23 09:09 Fluoxetine 20 Mg Capsule PO 11/08/24 08:59 40 mg DAILY OSCAR Administration Levetiracetam 250 mg 11/08/23 21:35 11/10/23 09:09 Levetiracetam 250 Mg Tablet PO 11/07/24 21:34 250 mg BID OSCAR Administration Magnesium Oxide 400 mg 11/09/23 09:00 11/10/23 09:09 Magnesium Oxide 400 Mg Tablet PO 11/08/24 08:59 400 mg BID OSCAR Administration Metoprolol Tartrate 50 mg 11/08/23 21:35 11/10/23 09:09 Metoprolol Tartrate 50 Mg Tablet PO 11/07/24 21:34 50 mg BID OSCAR Administration Ondansetron HCl 4 mg 11/10/23 12:36 Ondansetron 4 Mg/2 Ml Vial IV-PUSH 11/09/24 12:35 Q8H PRN Nausea And Vomiting Pantoprazole Sodium 40 mg 11/08/23 21:35 11/10/23 09:09 Pantoprazole 40 Mg Tablet. PO 11/07/24 21:34 40 mg BID OSCAR Administration Potassium Chloride 20 meq 11/09/23 09:00 11/10/23 09:09 Potassium Chloride Er 20 Meq Tab.Er.Prt PO 11/08/24 08:59 20 meq DAILY OSCAR Administration Sodium Chloride 0 ml 11/08/23 11:52 11/08/23 18:54 Sodium Chloride 0.9 % 10 Ml Syringe IV-PUSH 11/07/24 11:51 10 ml PRN PRN Administration Flush A&P - Hospitalist Assessment/Plan (1) Hypocalcemia: Plan as above Documented By: Nickie Clay MD 11/10/23 1310 Signed By: <Electronically signed by Nickie Clay MD> 11/10/23 1519 [facility] Work Phone: [phone] 475-705607-10-2024 Progress note Author Shalonda Pearson [facility] November 10, 2023 1:00pm Note Date/Time November 10, 2023 1:00 pm [facility] [address] [place], [place] [id number] Nephrology Progress Note Signed Patient: Kate Hagen MR#: [id number] : 1950 Acct:[id number] Age/Sex: 72 / F Adm Date: 4 Loc: 3T Room: [address] [place] [address] Type: ADM IN Attending Dr: Nickie Clay MD Copies to: ~ Date of Service: 11/10/2023 Subjective Subjective Narrative: Patient is a 72-year-old female with medical history significant for CKD, COPD, A-fib, CHF, DM, HTN, pulmonary hypertension. She reports taking all medicationsas prescribed. She presented to the ED 11/07 for abnormal outpatient labs. Her jewelry maker stated that her calcium is dangerously low and she had to come intothe emergency department. She was symptomatic with dizziness, weakness, confusion, numbness and tingling of her hands. Upon evaluation in ER, her calcium was 4.0 mg/DL. Her creatinine was 2.14 and potassium 3.2. Magnesium was 0.9 requiring supplementation. She reports that she saw Dr. Dean 3 years ago for CKD but she has been unable to see him again due to many hospitalizations for CHF. She is currently on water restriction. It was reported that the patient had an episode of C. difficile and she has been on oral vancomycin at home. She still has loose stool however it is improving. Interval history: Patient was evaluated yesterday and she was found to have hypercalcemia related to renal secondary hyperparathyroidism. Patient was started on calcitriol, calcium acetate as a phosphate binders and calcium carbonate between meals. Calcium slowly improving up to 6.1 mEq/L, corrected calcium 6.8 mg/dL. Patient has no symptoms of hypocalcemia. Renal function is about baseline with creatinine 1.98 mg/dL. Patient feels comfortable with no shortness of breath. No chest pain. No urinary symptoms Exam Physical Exam Vital Signs: Temp Pulse Resp BP Pulse Ox O2 Del Method O2 Flow Rate 36.9 C 81 18 140/63 99 Nasal Cannula 3 11/10/23 12:24 11/10/23 12:24 11/10/23 12:24 11/10/23 12:24 11/10/23 12:11/10/23 12:25 11/10/23 12:25 Narrative: Constitutional: Laying in bed in mild distress HEENT: Normocephalic, atraumatic. No jaundice, cyanosis. Moist mucous membranes Neck: Trachea midline Cardiovascular: Regular rate and rhythm, no murmurs. No JVD Respiratory: Clear air movement with no rales, crackles, or wheezes. Normal effort Gastrointestinal: Nondistended, nontender, no masses or organs palpated. Bowel sounds present. No flank pain Skin: No rashes, ecchymosis Neuro: Patient alert, awake, oriented x 3 Extremities: No edema. No joint swelling or inflammation Psych: Normal affect Objective Intake and Output I&O: Intake & Output 11/07/23 11/08/23 11/09/23 11/10/23 23:59 23:59 23:59 23:59 Intake Total 700 / 700 1700 / 1700 250 / 250 Output Total 300 / 300 Balance 400 / 400 1700 / 1700 250 / 250 Weight 68.7 kg 68.4 kg 64.3 kg Meds and Allergies Meds: Active Medications Acetaminophen (Acetaminophen 325 Mg Tablet) 650 mg PO Q6H PRN PRN Reason: Pain Stop: 11/08/24 08:52 Last Admin: 11/10/23 00:16 Dose: 650 mg Alprazolam (Alprazolam 0.5 Mg Tablet) 1 mg PO TID PRN PRN Reason: Anxiety Stop: 05/06/24 23:01 Last Admin: 11/09/23 22:13 Dose: 1 mg Apixaban (Apixaban 2.5 Mg Tablet) 2.5 mg PO BID [facility] Stop: 11/07/24 21:29 Last Admin: 11/10/23 09:09 Dose: 2.5 mg Atorvastatin Calcium (Atorvastatin 20 Mg Tablet) 20 mg PO QHS OSCAR Stop: 11/08/24 21:59 Last Admin: 11/09/23 22:12 Dose: 20 mg Brexpiprazole (Brexpiprazole 1 Mg Tablet) 1 mg PO QHS [facility]SCAR Stop: 11/07/24 21:59 Last Admin: 11/09/23 22:13 Dose: 1 mg Calcitriol (Calcitriol 0.5 Mcg Capsule) 0.5 mcg PO DAILY [facility] Stop: 11/08/24 14:39 Last Admin: 11/10/23 09:09 Dose: 0.5 mcg Calcium Acetate (Calcium Acetate 667 Mg Capsule) 1,334 mg PO TID.WITH.MEALS [facility] Stop: 11/08/24 16:59 Last Admin: 11/10/23 12:27 Dose: 1,334 mg Calcium Carbonate (Calcium Carbonate 500 Mg Tablet) 500 mg PO TID [facility] Stop: 11/08/24 21:59 Last Admin: 11/10/23 09:09 Dose: 500 mg Fluoxetine HCl (Fluoxetine 20 Mg Capsule) 40 mg PO DAILY [facility] Stop: 11/08/24 08:59 Last Admin: 11/10/23 09:09 Dose: 40 mg Levetiracetam (Levetiracetam 250 Mg Tablet) 250 mg PO BID [facility] Stop: 11/07/24 21:34 Last Admin: 11/10/23 09:09 Dose: 250 mg Magnesium Oxide (Magnesium Oxide 400 Mg Tablet) 400 mg PO BID [facility] Stop: 11/08/24 08:59 Last Admin: 11/10/23 09:09 Dose: 400 mg Metoprolol Tartrate (Metoprolol Tartrate 50 Mg Tablet) 50 mg PO BID [facility] Stop: 11/07/24 21:34 Last Admin: 11/10/23 09:09 Dose: 50 mg Ondansetron HCl (Ondansetron 4 Mg/2 Ml Vial) 4 mg IV-PUSH Q8H PRN PRN Reason: Nausea And Vomiting Stop: 11/09/24 12:35 Pantoprazole Sodium (Pantoprazole 40 Mg Tablet.Dr) 40 mg PO BID [facility] Stop: 11/07/24 21:34 Last Admin: 11/10/23 09:09 Dose: 40 mg Potassium Chloride (Potassium Chloride Er 20 Meq Tab.Er.Prt) 20 meq PO DAILY [facility] Stop: 11/08/24 08:59 Last Admin: 11/10/23 09:09 Dose: 20 meq Sodium Chloride (Sodium Chloride 0.9 % 10 Ml Syringe) 0 ml IV-PUSH PRN PRN PRN Reason: Flush Stop: 11/07/24 11:51 Last Admin: 11/08/23 18:54 Dose: 10 ml Allergies bee venom protein (honey bee) Allergy (Unknown, Verified 11/08/23 11:53) Anaphylaxis grapefruit Allergy (Unknown, Verified 11/08/23 11:53) rash naproxen Allergy (Unknown, Verified 11/08/23 11:53) Unknown Reaction pinneapple Allergy (Unknown, Uncoded 08/27/22 15:04) rash virgin wool Allergy (Unknown, Uncoded 11/08/23 11:53) Unknown Reaction Results - Nephrology Labs 11/09/23 06:22 11/10/23 05:24 Labs: 11/09/23 11/09/23 11/10/23 06:22 13:26 05:24 BUN 36 H 36 H Creatinine 1.82 H 1.98 H Phosphorus 5.8 H 5.4 H Iron Saturation 6.8 L Ferritin 822.6 H Albumin 3.2 L 3.2 L 25-OH Vitamin D Total 49.7 PTH Intact 524.0 H Radiology Impressions Impressions - last 24 hours: Any impression(s) listed above is documentation that was entered by the reading physician into a diagnostic report(s) for Kate Hagen. I have reviewed the report(s) and am incorporating any findings in the treatment plan of this patient where applicable. A&P - Nephrology Assessment/Plan (1) Secondary hyperparathyroidism (of renal origin): Plan: Patient presented with severe hypomagnesemia and hypophosphatemia in the settingof progressing CKD. She failed to follow-up in renal clinic and she has not been on phosphate binders or calcitriol. Intact PTH is significantly elevated with hyperphosphatemia suggestive of secondary parathyroidism of renal origin. Hypercalcemia was exacerbated by hypomagnesemia related to her recent C. difficile colitis (2) Acute kidney injury superimposed on CKD: Plan: Creatinine is elevated on admission possibly component of volume depletion as itis improved down to 2.19. Patient has progressive CKD, creatinine has been variable between 1.5 to 1.8 mg/dL since 2021. Patient has diabetes and hypertension possibly as a reason for CKD. (3) Hypocalcemia: Plan: Hypercalcemia in the setting of secondary parathyroidism and hypomagnesemia. Patient had twitches on admission that is improving with supplements. Ionized calcium still pending. (4) Hypomagnesemia: Plan: Hypomagnesemia possibly related to decreased oral intake and recent diarrhea. Patient also on PPI that impair magnesium absorption. (5) Anemia of renal disease: Plan: Patient has anemia in setting of chronic kidney disease, hemoglobin at target between 9.5 and 11 g/dL. Plan * Calcium did improve up to 6.1 mg/dL. She has no more hypocalcemic symptoms. Continue current dose of calcitriol, calcium acetate and calcium carbonate * Renal function at baseline. Patient will continue to follow-up as outpatient for adjustment of phosphate binders and calcitriol for maximizing phosphate and calcium balance. * She continued to have hypomagnesemia on magnesium supplement 400 mg twice a day. She still on Protonix which may contribute to hypomagnesemia by decreased magnesium absorption. Switching from Protonix to Pepcid may help to maintain normal magnesium * Patient has mild anemia in setting of chronic kidney disease. She has low iron stores with iron saturation 6.8%, ferritin 822. B12 is borderline at 320. Will add multivitamins and iron orally once a day. Patient stable from renal point to be discharged home. She need to follow-up inrenal clinic for management of CKD and hypercalcemia Plan of care was discussed with Dr. Clay Documented By: Shalonda Pearson MD 11/10/23 1254 Signed By: <Electronically signed by MD Shalonda Pearson> 11/10/23 1300 [facility] Work Phone: 1(954) 617-416207-09-2024 Progress note Author Gina Poole [facility] November 09, 2023 6:02pm Note Date/Time November 09, 2023 6:02p m [facility] [address] [place] [address] Hospitalist Progress Note Signed Patient: Kate Hagen MR#: [id number] : 1950 Acct:[id number] Age/Sex: 72 / F Adm Date: 4 Loc: Room: 2O5339-0 Type: ADM IN Attending Dr: Gina Poole DO Copies to: ~ Date of Service: 11/09/2023 Subjective Subjective Narrative: I personally saw and examined patient at the bedside this afternoon. She has ongoing paresthesias. Her breathing is not exacerbated. She describes generalized brain fog and weakness along with these worsening changes of numbness that are diffuse. Physical Examination: GENERAL APPEARANCE: Alert, up in bed AAOx3 CARDIAC: Normal S1 and S2. No S3, S4 or murmurs. LUNGS: Clear to auscultation anteriorly ABDOMEN: Positive bowel sounds. Soft, nontender. No guarding or signs of an acute abdomen MUSCULOSKELETAL: No joint erythema or tenderness. EXTREMITIES: No clubbing, cyanosis or edema NEUROLOGICAL: No focal deficits SKIN: Skin normal color, texture and turgor with no lesions or eruptions. PSYCHIATRIC: Appropriate mood and affect Assessment and plan: 1. Hypocalcemia 2. Secondary hyperparathyroidism 3. Acute kidney injury on chronic kidney disease 4. Hypomagnesemia 5. Prolonged QTc interval 6. Anemia 7. Chronic hypoxic respiratory failure 8. Chronic diastolic congestive heart failure 9. Aortic stenosis 10. Type 2 diabetes mellitus 11. Pulmonary hypertension, severe Patient's calcium level is uptrending appropriately. Associated EKG abnormalities are gradually improving as well repeat. Maintain telemetry. Continue to follow a.m. labs and electrolytes. Parathyroid hormone quite elevated consistent with secondary hyperparathyroidism. Appreciate nephrology recommendations. Kidney injury is all that severe and she is approaching it is likely baseline. No further IV fluids. Monitor pulmonary status and peripheraledema as diuretics for electrolyte abnormalities will be kept on hold. Calcium acetate phosphate binder. Anticipate gradual resolution of symptoms to improve quality and trending of electrolytes. Cardiopulmonary issues including aortic stenosis, diastolic CHF, pulmonary hypertension clinically appear at baseline will continue to be monitored. Exam Physical Exam Vital Signs: Temp Pulse Resp BP Pulse Ox O2 Del Method O2 Flow Rate 97.5 F L 77 24 158/80 H 97 Nasal Cannula 3 11/09/23 16:24 11/09/23 16:24 11/09/23 16:24 11/09/23 16:24 11/09/23 16:24 11/09/23 16:24 11/09/23 16:24 Objective Lab Results 11/09/23 06:22 11/09/23 13:26 Microbiology Results Microbiology 11/08/23 14:51 Urine - Voided Urine Culture - Preliminary No Growth 1 Day Meds Allergies and Active Meds Allergies bee venom protein (honey bee) Allergy (Unknown, Verified 11/08/23 11:53) Anaphylaxis grapefruit Allergy (Unknown, Verified 11/08/23 11:53) rash naproxen Allergy (Unknown, Verified 11/08/23 11:53) Unknown Reaction pinneapple Allergy (Unknown, Uncoded 08/27/22 15:04) rash virgin wool Allergy (Unknown, Uncoded 11/08/23 11:53) Unknown Reaction Active Meds: Active Medications Generic Name Dose Route Start Last Admin Trade Name Freq PRN Reason Stop Dose Admin Acetaminophen 650 mg 11/09/23 08:53 11/09/23 17:02 Acetaminophen 325 Mg Tablet PO 11/08/24 08:52 650 mg Q6H PRN Administration Pain Alprazolam 1 mg 11/08/23 23:02 11/09/23 17:02 Alprazolam 0.5 Mg Tablet PO 05/06/24 23:01 1 mg TID PRN Administration Anxiety Apixaban 2.5 mg 11/08/23 21:30 11/09/23 09:09 Apixaban 2.5 Mg Tablet PO 11/07/24 21:29 2.5 mg BID OSCAR Administration Atorvastatin Calcium 20 mg 11/09/23 22:00 Atorvastatin 20 Mg Tablet PO 11/08/24 21:59 QHS OSCAR Brexpiprazole 1 mg 11/08/23 22:00 11/08/23 23:39 Brexpiprazole 1 Mg Tablet PO 11/07/24 21:59 1 mg QHS OSCAR Administration Calcitriol 0.5 mcg 11/09/23 14:40 11/09/23 15:28 Calcitriol 0.5 Mcg Capsule PO 11/08/24 14:39 0.5 mcg DAILY OSCAR Administration Calcium Acetate 1,334 mg 11/09/23 17:00 11/09/23 17:02 Calcium Acetate 667 Mg Capsule PO 11/08/24 16:59 1,334 mg TID.WITH.MEALS OSCAR Administration Calcium Carbonate 500 mg 11/09/23 22:00 Calcium Carbonate 500 Mg Tablet PO 11/08/24 21:59 TID OSCAR Fluoxetine HCl 40 mg 11/09/23 09:00 11/09/23 09:08 Fluoxetine 20 Mg Capsule PO 11/08/24 08:59 40 mg DAILY OSCAR Administration Levetiracetam 250 mg 11/08/23 21:35 11/09/23 09:08 Levetiracetam 250 Mg Tablet PO 11/07/24 21:34 250 mg BID OSCAR Administration Magnesium Oxide 400 mg 11/09/23 09:00 11/09/23 09:09 Magnesium Oxide 400 Mg Tablet PO 11/08/24 08:59 400 mg BID OSCAR Administration Metoprolol Tartrate 50 mg 11/08/23 21:35 11/09/23 09:08 Metoprolol Tartrate 50 Mg Tablet PO 11/07/24 21:34 50 mg BID OSCAR Administration Pantoprazole Sodium 40 mg 11/08/23 21:35 11/09/23 09:08 Pantoprazole 40 Mg Tablet. PO 11/07/24 21:34 40 mg BID OSCAR Administration Potassium Chloride 20 meq 11/09/23 09:00 11/09/23 09:08 Potassium Chloride Er 20 Meq Tab.Er.Prt PO 11/08/24 08:59 20 meq DAILY OSCAR Administration Sodium Chloride 0 ml 11/08/23 11:52 11/08/23 18:54 Sodium Chloride 0.9 % 10 Ml Syringe IV-PUSH 11/07/24 11:51 10 ml PRN PRN Administration Flush A&P - Hospitalist Assessment/Plan (1) Hypocalcemia: Plan as above Documented By: Gina Poole DO 11/09/23 17 55 Signed By: <Electronically signed by Gina Poole DO> 11/09/23 1802 [facility] Work Phone: [phone]) 443-633807-09-2024 Consult note Author Shalonda Pearson [facility] November 09, 2023 4:40pm Note Date/Time November 09, 2023 4:28p m [facility] [address] [place] [address] Nephrology Consult Note Signed Patient: Kate Hagen MR#: [id number] : 1950 Acct:[id number] Age/Sex: 72 / F Adm Date: 4 Loc: Room: [address] [place] [address] Type: ADM IN Attending Dr: Gina Poole DO Copies to: MD Shalonda Arambula II, MD Michael R. Frings, DO~ Providers Consult Date: 11/09/23 Requesting Provider: Gina Poole DO Primary Care Provider: Barry Barber II, MD [facility] Reason for Consult: Hypocalcemia, ELI on CKD IV History of Present Illness: Patient is a 72-year-old female with medical history significant for CKD, COPD, A-fib, CHF, DM, HTN, pulmonary hypertension. She reports taking all medicationsas prescribed. She presented to the ED 11/07 for abnormal outpatient labs. Her jewelry maker stated that her calcium is dangerously low and she had to come intothe emergency department. She was symptomatic with dizziness, weakness, confusion, numbness and tingling of her hands. Upon evaluation in ER, her calcium was 4.0 mg/DL. Her creatinine was 2.14 and potassium 3.2. Magnesium was 0.9 requiring supplementation. She reports that she saw Dr. Dean 3 years ago for CKD but she has been unable to see him again due to many hospitalizations for CHF. She is currently on water restriction. It was reported that the patient had an episode of C. difficile and she has been on oral vancomycin at home. She still has loose stool however it is improving. Patient is being seen and examined in her room. She still have twitches howevershe still stated that she is better. Patient was given multiple boluses of IV calcium and currently on IV fluid D5 half-normal saline at rate of 75 cc/h. Today her creatinine is down to 2.04 and potassium 3.3. Magnesium improved to 1.3 and calcium up to 5.2 with albumin 3.2. Phosphorus is 6.2. EKG showed prolonged QTc at 500 seconds. Urinalysis was positive for leukoesterase. Urineculture shows no growth to date. She reports still having nausea, abdominal pain, weakness, numbness and tingling in her hands. She also reports having loose stools recently. She denies fever, chills, chest pain, shortness of breath. Further workup showed 25-hydroxy vitamin D is normal at 49.7 however intact PTH is elevated 524 pg/mL. Review of Systems Review of Systems All other systems reviewed & are negative unless noted below or in HPI [facility] Medical History Arthritis Problem List clean-up per request of Phys. EHR Cmte Chronic low back pain Problem List clean-up per request of Phys. EHR Cmte Anxiety Problem List clean-up per request of Phys. EHR Cmte Depression Problem List clean-up per request of Phys. EHR Cmte Bronchial spasms Problem List clean-up per request of Phys. EHR Cmte Bronchial asthma Problem List clean-up per request of Phys. EHR Cmte Macular degeneration of both eyes Problem List clean-up per request of Phys. EHR Cmte Glaucoma, right eye Problem List clean-up per request of Phys. EHR Cmte Sleep apnea treated with continuous positive airway pressure (CPAP) Problem List clean-up per request of Phys. EHR Cmte Diabetes Problem List clean-up per request of Phys. EHR Cmte Hyperlipidemia Problem List clean-up per request of Phys. EHR Cmte CHF (congestive heart failure) Problem List clean-up per request of Phys. EHR Cmte Afib Problem List clean-up per request of Phys. EHR Cmte COPD (chronic obstructive pulmonary disease) Problem List clean-up per request of Phys. EHR Cmte Family History Brother Myocardial infarction Father Myocardial infarction Mother History of open heart surgery Emphysema of lung COPD (chronic obstructive pulmonary disease) Sister Hypertension Stroke Sister Hypertension Stroke Sister Stroke Brother Legacy FamHx Relation: Brother(s) Sister Social History Smoking Status: Current every day smoker Tobacco Type: cigarettes Substance Use Type: None Meds Medications & Allergies Allergies bee venom protein (honey bee) Allergy (Unknown, Verified 11/08/23 11:53) Anaphylaxis grapefruit Allergy (Unknown, Verified 11/08/23 11:53) rash naproxen Allergy (Unknown, Verified 11/08/23 11:53) Unknown Reaction pinneapple Allergy (Unknown, Uncoded 08/27/22 15:04) rash virgin wool Allergy (Unknown, Uncoded 11/08/23 11:53) Unknown Reaction Home Medications albuterol sulfate 90 mcg/actuation aerosol inhaler (Ventolin HFA) 1 inh inhalation Q4HR 11/18/22 [History Confirmed 11/08/23] alprazolam 1 mg tablet 1 mg PO TID PRN Anxiety 11/18/22 [History Confirmed 11/08/23] ammonium lactate 12 % lotion 1 applic topical BID PRN dry skin 11/18/22 [History Confirmed 11/08/23] apixaban 5 mg tablet (Eliquis) 2.5 mg PO BID 11/18/22 [History Confirmed 11/08/23] brexpiprazole 1 mg tablet (Rexulti) 1 mg PO QHS 11/18/22 [History Confirmed 11/08/23] bumetanide 2 mg tablet 2 mg PO BID 11/18/22 [History Confirmed 11/08/23] cyclobenzaprine 10 mg tablet 10 mg PO TID 11/18/22 [History Confirmed 11/08/23] dapagliflozin propanediol 10 mg tablet (Farxiga) 10 mg PO DAILY 11/18/22 [History Confirmed 11/08/23] dulaglutide 0.75 mg/0.5 mL subcutaneous pen injector (Trulicity) 0.75 mg subcut QWEEK 11/18/22 [History Confirmed 11/08/23] fluoxetine 40 mg capsule 40 mg PO DAILY 11/18/22 [History Confirmed 11/08/23] fluticasone 250 mcg-salmeterol 50 mcg/dose blistr powdr for inhalation (Advair Diskus) 2 inh inhalation QID 11/18/22 [History Confirmed 11/08/23] hydrocodone 5 mg-acetaminophen 325 mg tablet 1 tab PO Q6HR PRN Pain 11/18/22 [History Confirmed 11/08/23] magnesium oxide 400 mg (241.3 mg magnesium) tablet 400 mg PO BID 11/18/22 [History Confirmed 11/08/23] metoprolol tartrate 50 mg tablet 50 mg PO BID 11/18/22 [History Confirmed 11/08/23] tizanidine 4 mg tablet 4 mg PO TID PRN Spasms 11/18/22 [History Confirmed 11/08/23] albuterol sulfate 2.5 mg/3 mL (0.083 %) solution for nebulization 2.5 mg inhalation Q6H 11/19/22 [History Confirmed 11/08/23] metolazone 2.5 mg tablet 2.5 mg PO DAILY@0730 30 days #30 tabs 11/20/22 [Rx Confirmed 11/08/23] Lactobacillus acidophilus See Rx Instructions PO Q8HR 11/08/23 [History Confirmed 11/08/23] acetaminophen 500 mg capsule 1,000 mg PO Q6HR PRN pain 11/08/23 [History Confirmed 11/08/23] amino acids (Amino Acid capsule) cap PO Q8HR 11/08/23 [History] atorvastatin 20 mg tablet 20 mg PO DAILY 11/08/23 [History Confirmed 11/08/23] calcium citrate 200 mg (950 mg) tablet 200 mg PO TID 11/08/23 [History Confirmed 11/08/23] cholecalciferol (vitamin D3) 25 mcg (1,000 unit) capsule 25 mcg PO DAILY 11/08/23 [History Confirmed 11/08/23] estradiol 0.25 mg/0.25 gram (0.1 %) transdermal gel packet (Divigel) 0.25 mg transdermal .2times week 11/08/23 [History Confirmed 11/08/23] ferrous sulfate 325 mg (65 mg iron) tablet 325 mg PO BID 11/08/23 [History Confirmed 11/08/23] hyoscyamine sulfate 0.125 mg sublingual tablet 0.125 mg sublingual Q6HR PRN stomach upset 11/08/23 [History Confirmed 11/08/23] levetiracetam 250 mg tablet (Keppra) 250 mg PO BID 11/08/23 [History Confirmed 11/08/23] levofloxacin 750 mg tablet 750 mg PO DAILY 11/08/23 [History Confirmed 11/08/23] mirabegron 50 mg tablet,extended release 24 hr (Myrbetriq) 50 mg PO DAILY 11/08/23 [History Confirmed 11/08/23] multivitamin 1 tab PO DAILY 11/08/23 [History Confirmed 11/08/23] ondansetron 4 mg disintegrating tablet 4 mg PO Q6HR PRN nausea and vomiting 11/08/23 [History Confirmed 11/08/23] pantoprazole 40 mg tablet,delayed release 40 mg PO BID 11/08/23 [History Confirmed 11/08/23] potassium chloride 20 mEq tablet,extended release 20 meq PO DAILY 11/08/23 [History Confirmed 11/08/23] promethazine 25 mg tablet 25 mg PO Q6HR PRN nausea and vomiting 11/08/23 [History Confirmed 11/08/23] vancomycin 250 mg capsule 250 mg PO TID 11/08/23 [History Confirmed 11/08/23] Active Medications: Active Medications Acetaminophen (Acetaminophen 325 Mg Tablet) 650 mg PO Q6H PRN PRN Reason: Pain Stop: 11/08/24 08:52 Last Admin: 11/09/23 09:08 Dose: 650 mg Alprazolam (Alprazolam 0.5 Mg Tablet) 1 mg PO TID PRN PRN Reason: Anxiety Stop: 05/06/24 23:01 Last Admin: 11/09/23 10:29 Dose: 1 mg Apixaban (Apixaban 2.5 Mg Tablet) 2.5 mg PO BID OSCAR Stop: 11/07/24 21:29 Last Admin: 11/09/23 09:09 Dose: 2.5 mg Atorvastatin Calcium (Atorvastatin 20 Mg Tablet) 20 mg PO QHS [facility] Stop: 11/08/24 21:59 Brexpiprazole (Brexpiprazole 1 Mg Tablet) 1 mg PO QHS OSCAR Stop: 11/07/24 21:59 Last Admin: 11/08/23 23:39 Dose: 1 mg Calcium Carbonate (Calcium Carbonate 500 Mg Tablet) 500 mg PO TID.WITH.MEALS OSCAR Stop: 11/08/24 07:59 Last Admin: 11/09/23 12:23 Dose: 500 mg Fluoxetine HCl (Fluoxetine 20 Mg Capsule) 40 mg PO DAILY OSCAR Stop: 11/08/24 08:59 Last Admin: 11/09/23 09:08 Dose: 40 mg Dextrose/Sodium Chloride (5 % Dextrose-0.45 % Nacl) 1,000 mls @ 75 mls/hr IV .[id number] OSCAR Stop: 11/07/24 16:29 Last Admin: 11/09/23 12:21 Dose: 75 mls/hr Levetiracetam (Levetiracetam 250 Mg Tablet) 250 mg PO BID OSCAR Stop: 11/07/24 21:34 Last Admin: 11/09/23 09:08 Dose: 250 mg Magnesium Oxide (Magnesium Oxide 400 Mg Tablet) 400 mg PO BID [facility] Stop: 11/08/24 08:59 Last Admin: 11/09/23 09:09 Dose: 400 mg Metoprolol Tartrate (Metoprolol Tartrate 50 Mg Tablet) 50 mg PO BID OSCAR Stop: 11/07/24 21:34 Last Admin: 11/09/23 09:08 Dose: 50 mg Pantoprazole Sodium (Pantoprazole 40 Mg Tablet.Dr) 40 mg PO BID OSCAR Stop: 11/07/24 21:34 Last Admin: 11/09/23 09:08 Dose: 40 mg Potassium Chloride (Potassium Chloride Er 20 Meq Tab.Er.Prt) 20 meq PO DAILY [facility] Stop: 11/08/24 08:59 Last Admin: 11/09/23 09:08 Dose: 20 meq Sodium Chloride (Sodium Chloride 0.9 % 10 Ml Syringe) 0 ml IV-PUSH PRN PRN PRN Reason: Flush Stop: 11/07/24 11:51 Last Admin: 11/08/23 18:54 Dose: 10 ml Exam Physical Exam Vital Signs: Temp Pulse Resp BP Pulse Ox O2 Del Method O2 Flow Rate 97.7 F 70 20 125/73 96 Nasal Cannula 3 11/09/23 08:24 11/09/23 08:24 11/09/23 08:24 11/09/23 08:24 11/09/23 08:24 11/09/23 08:24 11/09/23 08:24 Narrative: Constitutional: Laying in bed in mild distress HEENT: Normocephalic, atraumatic. No jaundice, cyanosis. Moist mucous membranes Neck: Trachea midline Cardiovascular: Regular rate and rhythm, no murmurs. No JVD Respiratory: Clear air movement with no rales, crackles, or wheezes. Normal effort Gastrointestinal: Nondistended, nontender, no masses or organs palpated. Bowel sounds present. No flank pain Skin: No rashes, ecchymosis Neuro: Patient alert, awake, oriented x 3 Extremities: No edema. No joint swelling or inflammation Psych: Normal affect Results - Nephrology Labs 11/09/23 06:22 11/09/23 13:26 Labs: 11/08/23 11/09/23 14:51 06:22 BUN 38 H Creatinine 2.04 H Phosphorus 6.2 H Urine Color Light-yellow Urine Appearance Clear Urine pH 5.0 Ur Specific [place] 1.008 Urine Protein Trace H Urine Glucose (UA) Normal Urine Ketones Negative Urine Occult Blood Negative Urine Nitrite Negative Ur Leukocyte Esterase 3+ H Urine RBC 10-19 H Urine WBC 20-49 H Urine Bacteria Rare Abnormal lab results 3 11/09/23 11/09/23 Range/Units 06:22 13:26 Corrected WBC 12.4 H (3.8-11.6) X10E3/uL Uncorrected WBC Count 12.4 H (3.8-11.6) x10E3/uL RBC 3.30 L (3.60-5.00) X10E6/uL Hgb 9.9 L (11.8-15.4) g/dL Hct 30.1 L (34.0-46.4) % RDW 17.2 H (11.9-15.3) % Neut # (Auto) 9.4 H (1.8-7.7) x10E3/uL Sodium 135 L (136-145) mmol/L Potassium 3.3 L 3.4 L (3.5-5.1) mmol/L Chloride 92 L 92 L (98-107) mmol/L Carbon Dioxide 34.7 H 32.6 H (21.0-31.0) mmol/L BUN 38 H 36 H (7-25) mg/dL Creatinine 2.04 H 1.82 H (0.60-1.20) mg/dL Glucose 117 H (70-100) mg/dL Uric Acid 8.1 H (2.3-6.6) mg/dL Calcium 4.7 L* 5.2 L* (8.6-10.3) mg/dL Phosphorus 6.2 H 5.8 H (2.5-4.5) mg/dL Magnesium 1.3 L 1.8 L (1.9-2.7) mg/dL Total Protein 6.0 L (6.4-8.9) gm/dL Albumin 3.2 L (3.5-5.7) gm/dL PTH Intact 524.0 H (12-88) pg/mL Radiology Impressions Impressions - last 24 hours: Any impression(s) listed above is documentation that was entered by the reading physician into a diagnostic report(s) for Kate Hagen. I have reviewed the report(s) and am incorporating any findings in the treatment plan of this patient where applicable. ECG Data Attestation: I reviewed this ECG and interpreted as documented below: ECG Narrative: Normal sinus rhythm. Prolonged QT A&P - Nephrology Assessment/Plan (1) Secondary hyperparathyroidism (of renal origin): Plan: Patient presented with severe hypomagnesemia and hypophosphatemia in the settingof progressing CKD. She failed to follow-up in renal clinic and she has not been on phosphate binders or calcitriol. Intact PTH is significantly elevated with hyperphosphatemia suggestive of secondary parathyroidism of renal origin. Hypercalcemia was exacerbated by hypomagnesemia related to her recent C. difficile colitis (2) Acute kidney injury superimposed on CKD: Plan: Creatinine is elevated on admission possibly component of volume depletion as itis improved down to 2.19. Patient has progressive CKD, creatinine has been variable between 1.5 to 1.8 mg/dL since 2021. Patient has diabetes and hypertension possibly as a reason for CKD. (3) Hypocalcemia: Plan: Hypercalcemia in the setting of secondary parathyroidism and hypomagnesemia. Patient had twitches on admission that is improving with supplements. Ionized calcium still pending. (4) Hypomagnesemia: Plan: Hypomagnesemia possibly related to decreased oral intake and recent diarrhea. Patient also on PPI that impair magnesium absorption. (5) Anemia of renal disease: Plan: Patient has anemia in setting of chronic kidney disease, hemoglobin at target between 9.5 and 11 g/dL. Plan * Patient had multiple boluses of IV magnesium and calcium. Calcium continues to improve currently more than 5.5 mg/dL. Symptoms has markedly improved and possibly she does not need more IV calcium. * Will add calcium acetate 1500 mg as a phosphate binder with each meal * Change calcium carbonate to 500 mg 3 times daily between meals to increase absorption of the calcium * Start 1, 25 hydroxy vitamin D calcitriol 0.5 mcg daily * Renal function at baseline. Patient will continue to follow-up as outpatient for adjustment of phosphate binders and calcitriol for maximizing phosphate and calcium balance. Intact at age he continues to be elevated in the setting of chronic kidney disease. * Will check iron stores, B12 and folic acid and replete as needed I appreciate this consultation and will be happy to follow the patient with you during hospital stay. Once patient is asymptomatic, she can go home on current medications including calcitriol, phosphate binders and calcium carbonate that can be increased as needed as outpatient This document was dictated utilizing computerized voice recognition technology. Errors in grammar, spelling, and or syntax may be noted. The creator of this document does not proofread for this. Documented By: Shalonda Pearson MD 11/09/23 1406 Signed By: <Electronically signed by MD Shalonda Pearson> 11/09/23 1640 [facility] Work Phone: 1(887) 802-649207-08-2024 History and physical note Author Michelle Lock [facility] November 08, 2023 6:58pm Note Date/Time November 08, 2023 6:51p m [facility] [address] [place] [address] Hospitalist H&P Signed with Colby Patient: Kate Hagen MR#: [id number] : 1950 Acct:[id number] Age/Sex: 72 / F Adm Date: 4 Loc: Room: 2L8016-9 Type: ADM IN Attending Dr: Michelle Lock MD Copies to: Michelle Barber II, MD~ ADDENDUM1 Continue IV fluids, will monitor for fluid overload given history of pulmonary hypertension. Follow-up labs in the morning. Addendum Documented By: Michelle Lock 11/08/231857 Addendum Signed By: <Electronically signed by Michelle Lock> 11/08/231857 HPI DATE OF EXAMINATION: 11/08/23 CHIEF COMPLAINT: Abnormal HISTORY OF PRESENT ILLNESS: This is a 72-year-old female with an extensive past medical history which includes congestive heart failure, pulmonary hypertension, chronic kidney disease, anemia, type 2 diabetes, who was sent here by her primary care physician for abnormal labs. According to the patient, she has been having numbness and tingling in her lower extremities as well as her hands. This has been going on for a few days. Because her symptoms were not improving in fact they are getting worse she went to see her primary care doctor who ordered some labs on her and it showed that she was severely hypocalcemic so she was sent to our emergency department. In emergency department she was found to have a calcium of 4.0, magnesium of 0.9, and acute kidney injury with a creatinine of 2.4 from 1.4. She is being admitted for electrolyte derangement. Of note on the EKG she also had a prolonged QTc in the 500s. Other than the numbness and tingling, she has no other complaints. She denies any shortness of breath, chest pain, lightheadedness or dizziness. She does have a history of C. difficile was recent for 10 days recently and she still has some loose stool butshe said it has improved significantly. Other lab abnormalities included a white count of 14,000 and her UA was positive for leukocyte Estrace. Review of Systems Review of Systems All other systems reviewed & are negative unless noted below or in HPI [facility] Medical History Arthritis Problem List clean-up per request of Phys. EHR Cmte Chronic low back pain Problem List clean-up per request of Phys. EHR Cmte Anxiety Problem List clean-up per request of Phys. EHR Cmte Depression Problem List clean-up per request of Phys. EHR Cmte Bronchial spasms Problem List clean-up per request of Phys. EHR Cmte Bronchial asthma Problem List clean-up per request of Phys. EHR Cmte Macular degeneration of both eyes Problem List clean-up per request of Phys. EHR Cmte Glaucoma, right eye Problem List clean-up per request of Phys. EHR Cmte Sleep apnea treated with continuous positive airway pressure (CPAP) Problem List clean-up per request of Phys. EHR Cmte Diabetes Problem List clean-up per request of Phys. EHR Cmte Hyperlipidemia Problem List clean-up per request of Phys. EHR Cmte CHF (congestive heart failure) Problem List clean-up per request of Phys. EHR Cmte Afib Problem List clean-up per request of Phys. EHR Cmte COPD (chronic obstructive pulmonary disease) Problem List clean-up per request of Phys. EHR Cmte Family History Brother Myocardial infarction Father Myocardial infarction Mother History of open heart surgery Emphysema of lung COPD (chronic obstructive pulmonary disease) Sister Hypertension Stroke Sister Hypertension Stroke Sister Stroke Brother Legacy FamHx Relation: Brother(s) Sister Social History Smoking Status: Current every day smoker Tobacco Type: cigarettes Substance Use Type: None Meds Medications and Allergies Allergies bee venom protein (honey bee) Allergy (Unknown, Verified 11/08/23 11:53) Anaphylaxis grapefruit Allergy (Unknown, Verified 11/08/23 11:53) rash naproxen Allergy (Unknown, Verified 11/08/23 11:53) Unknown Reaction pinneapple Allergy (Unknown, Uncoded 08/27/22 15:04) rash virgin wool Allergy (Unknown, Uncoded 11/08/23 11:53) Unknown Reaction Home Medications albuterol sulfate 90 mcg/actuation aerosol inhaler (Ventolin HFA) 1 inh inhalation Q4HR 11/18/22 [History Confirmed 11/08/23] alprazolam 1 mg tablet 1 mg PO TID PRN Anxiety 11/18/22 [History Confirmed 11/08/23] ammonium lactate 12 % lotion 1 applic topical BID PRN dry skin 11/18/22 [History Confirmed 11/08/23] apixaban 5 mg tablet (Eliquis) 2.5 mg PO BID 11/18/22 [History Confirmed 11/08/23] brexpiprazole 1 mg tablet (Rexulti) 1 mg PO QHS 11/18/22 [History Confirmed 11/08/23] bumetanide 2 mg tablet 2 mg PO BID 11/18/22 [History Confirmed 11/08/23] cyclobenzaprine 10 mg tablet 10 mg PO TID 11/18/22 [History Confirmed 11/08/23] dapagliflozin propanediol 10 mg tablet (Farxiga) 10 mg PO DAILY 11/18/22 [History Confirmed 11/08/23] dulaglutide 0.75 mg/0.5 mL subcutaneous pen injector (Trulicity) 0.75 mg subcut QWEEK 11/18/22 [History Confirmed 11/08/23] fluoxetine 40 mg capsule 40 mg PO DAILY 11/18/22 [History Confirmed 11/08/23] fluticasone 250 mcg-salmeterol 50 mcg/dose blistr powdr for inhalation (Advair Diskus) 2 inh inhalation QID 11/18/22 [History Confirmed 11/08/23] hydrocodone 5 mg-acetaminophen 325 mg tablet 1 tab PO Q6HR PRN Pain 11/18/22 [History Confirmed 11/08/23] magnesium oxide 400 mg (241.3 mg magnesium) tablet 400 mg PO BID 11/18/22 [History Confirmed 11/08/23] metoprolol tartrate 50 mg tablet 50 mg PO BID 11/18/22 [History Confirmed 11/08/23] tizanidine 4 mg tablet 4 mg PO TID PRN Spasms 11/18/22 [History Confirmed 11/08/23] albuterol sulfate 2.5 mg/3 mL (0.083 %) solution for nebulization 2.5 mg inhalation Q6H 11/19/22 [History Confirmed 11/08/23] metolazone 2.5 mg tablet 2.5 mg PO DAILY@0730 30 days #30 tabs 11/20/22 [Rx Confirmed 11/08/23] Lactobacillus acidophilus See Rx Instructions PO Q8HR 11/08/23 [History Confirmed 11/08/23] acetaminophen 500 mg capsule 1,000 mg PO Q6HR PRN pain 11/08/23 [History Confirmed 11/08/23] amino acids (Amino Acid capsule) cap PO Q8HR 11/08/23 [History] atorvastatin 20 mg tablet 20 mg PO DAILY 11/08/23 [History Confirmed 11/08/23] calcium citrate 200 mg (950 mg) tablet See Rx Instructions PO TID 11/08/23 [History Confirmed 11/08/23] cholecalciferol (vitamin D3) 25 mcg (1,000 unit) capsule 25 mcg PO DAILY 11/08/23 [History Confirmed 11/08/23] estradiol 0.25 mg/0.25 gram (0.1 %) transdermal gel packet (Divigel) 0.25 mg transdermal .2times week 11/08/23 [History Confirmed 11/08/23] ferrous sulfate 325 mg (65 mg iron) tablet 325 mg PO BID 11/08/23 [History Confirmed 11/08/23] hyoscyamine sulfate 0.125 mg sublingual tablet 0.125 mg sublingual Q6HR PRN stomach upset 11/08/23 [History Confirmed 11/08/23] levetiracetam 250 mg tablet (Keppra) 250 mg PO BID 11/08/23 [History Confirmed 11/08/23] levofloxacin 750 mg tablet 750 mg PO DAILY 11/08/23 [History Confirmed 11/08/23] mirabegron 50 mg tablet,extended release 24 hr (Myrbetriq) 50 mg PO DAILY 11/08/23 [History Confirmed 11/08/23] multivitamin 1 tab PO DAILY 11/08/23 [History Confirmed 11/08/23] ondansetron 4 mg disintegrating tablet 4 mg PO Q6HR PRN nausea and vomiting 11/08/23 [History Confirmed 11/08/23] pantoprazole 40 mg tablet,delayed release 40 mg PO BID 11/08/23 [History Confirmed 11/08/23] potassium chloride 20 mEq tablet,extended release 20 meq PO DAILY 11/08/23 [History Confirmed 11/08/23] promethazine 25 mg tablet 25 mg PO Q6HR PRN nausea and vomiting 11/08/23 [History Confirmed 11/08/23] vancomycin 250 mg capsule 250 mg PO TID 11/08/23 [History Confirmed 11/08/23] Exam Physical Exam Vital Signs: Temp Pulse Resp BP Pulse Ox O2 Del Method O2 Flow Rate 98.3 F 74 19 130/103 H 98 Room Air 3 11/08/23 16:44 11/08/23 18:31 11/08/23 18:31 11/08/23 18:31 11/08/23 18:31 11/08/23 18:31 11/08/23 16:44 Const General: cooperative, healthy appearing, comfortable and no acute distress Orientation: alert, awake and oriented x3 HEENT Head: normal to inspection Eyes General: appearance normal, both eyes and all related structures Neck Neck: normal visual inspection Resp Effort & Inspection: normal respiratory effort and able to speak in complete sentences Cardio Jugular venous pressure: no JVD Rhythm: regular rhythm Heart Sounds: S1 normal and S2 normal GI Palpation: soft and no hepatosplenomegaly Skin General: no rashes or lesions noted Neuro General: patient alert, patient awake and patient oriented x3 Extrem General: normal to inspection Results - Hospitalist H&P Lab Results Labs: Laboratory Last Values Corrected WBC 14.5 X10E3/uL (3.8-11.6) H 11/08/23 12:12 Uncorrected WBC Count 14.5 x10E3/uL (3.8-11.6) H 11/08/23 12:12 RBC 3.18 X10E6/uL (3.60-5.00) L 11/08/23 12:12 Hgb 9.7 g/dL (11.8-15.4) L 11/08/23 12:12 Hct 28.9 % (34.0-46.4) L 11/08/23 12:12 MCV 90.9 fl (80-100) 11/08/23 12:12 MCH 30.4 pg (24.7-34.3) 11/08/23 12:12 MCHC 33.4 g/dL (32.0-35.0) 11/08/23 12:12 RDW 17.4 % (11.9-15.3) H 11/08/23 12:12 Plt Count 184 x10E3/uL (150-450) 11/08/23 12:12 MPV 7.3 fl (6.3-10.7) 11/08/23 12:12 Neut % (Auto) 84.2 % (.) 11/08/23 12:12 Lymph % (Auto) 9.5 % (.) 11/08/23 12:12 [place] % (Auto) 4.7 % (.) 11/08/23 12:12 Eos % (Auto) 1.3 % (.) 11/08/23 12:12 Baso % (Auto) 0.3 % (.) 11/08/23 12:12 Nucleat RBC Rel Count 0.0 /100 WBC (0-0.5) 11/08/23 12:12 Neut # (Auto) 12.2 x10E3/uL (1.8-7.7) H 11/08/23 12:12 Lymph # (Auto) 1.4 x10E3/uL (1.00-4.8) 11/08/23 12:12 [place] # (Auto) 0.7 x10E3/uL (0.0-0.8) 11/08/23 12:12 Eos # (Auto) 0.2 x10E3/uL (0.0-0.45) 11/08/23 12:12 Baso # (Auto) 0.0 x10E3/uL (0.0-0.2) 11/08/23 12:12 Monocyte Dist Width 16.42 % (0.00-20.00) 11/08/23 12:12 PT 16.4 Seconds (9.0-12.9) H 11/08/23 13:34 INR 1.4 11/08/23 13:34 APTT 28.4 Seconds (25.1-36.5) 11/08/23 13:34 PHA Creatinine Clear 19.45 11/08/23 12:12 Sodium 135 mmol/L (136-145) L 11/08/23 12:12 Potassium 3.2 mmol/L (3.5-5.1) L 11/08/23 12:12 Chloride 92 mmol/L (98-107) L 11/08/23 12:12 Carbon Dioxide 28.0 mmol/L (21.0-31.0) 11/08/23 12:12 Anion Gap 18.2 mEq/L (6.0-15.0) H 11/08/23 12:12 BUN 39 mg/dL (7-25) H 11/08/23 12:12 Creatinine 2.14 mg/dL (0.60-1.20) H 11/08/23 12:12 Est GFR (CKD-EPI) 23.726 mL/Min 11/08/23 12:12 Glucose 106 mg/dL (70-100) H 11/08/23 12:12 Calcium 4.0 mg/dL (8.6-10.3) L* 11/08/23 12:12 Magnesium 0.9 mg/dL (1.9-2.7) L* 11/08/23 12:12 Total Bilirubin 0.3 mg/dl (0.3-1.0) 11/08/23 12:12 Direct Bilirubin 0.10 mg/dL (0.03-0.18) 11/08/23 12:12 Indirect Bilirubin 0.2 mg/dL 11/08/23 12:12 AST 23 U/L (13-39) 11/08/23 12:12 ALT 26 U/L (7-52) 11/08/23 12:12 Alkaline Phosphatase 54 U/L (34-104) 11/08/23 12:12 Total Creatine Kinase 229 U/L (30-223) H 11/08/23 12:12 Troponin I High Sens 15.9 pg/mL (0.0-15.0) H 11/08/23 12:12 B-Natriuretic Peptide 622.0 pg/mL (5-100) H 11/08/23 12:12 Total Protein 5.9 gm/dL (6.4-8.9) L 11/08/23 12:12 Albumin 3.1 gm/dL (3.5-5.7) L 11/08/23 12:12 Globulin 2.8 gm/dL 11/08/23 12:12 Albumin/Globulin Ratio 1.1 11/08/23 12:12 Urine Color Light-yellow (Yellow) 11/08/23 14:51 Urine Appearance Clear (Clear) 11/08/23 14:51 Urine pH 5.0 (5.0-9.0) 11/08/23 14:51 Ur Specific [place] 1.008 (1.001-1.030) 11/08/23 14:51 Urine Protein Trace mg/dL (Negative) H 11/08/23 14:51 Urine Glucose (UA) Normal mg/dL (Normal) 11/08/23 14:51 Urine Ketones Negative (Negative) 11/08/23 14:51 Urine Occult Blood Negative (Negative) 11/08/23 14:51 Urine Nitrite Negative (Negative) 11/08/23 14:51 Urine Bilirubin Negative (Negative) 11/08/23 14:51 Urine Urobilinogen Normal mg/dL (Normal) 11/08/23 14:51 Ur Leukocyte Esterase 3+ (Negative) H 11/08/23 14:51 Urine RBC 10-19 /HPF (0-4) H 11/08/23 14:51 Urine WBC 20-49 /HPF (0-4) H 11/08/23 14:51 Urine WBC Clumps Occasional /LPF (None Seen) H 11/08/23 14:51 Ur Squamous Epith Cells 1-2 /HPF (0-2) 11/08/23 14:51 Urine Bacteria Rare /HPF (None Seen) 11/08/23 14:51 Hyaline Casts 0-8 /LPF (0-8) 11/08/23 14:51 Urine Mucus Rare /LPF 11/08/23 14:51 Urine Yeast (Budding) 4+ /HPF (None Seen) H 11/08/23 14:51 Assessment & Plan Assessment/Plan (1) Hypocalcemia: (2) Hypomagnesemia: (3) Acute kidney injury superimposed on CKD: (4) UTI (urinary tract infection): Plan Admit to inpatient telemetry Is getting 2 g of calcium now as well as 4 g of magnesium. Will repeat check electrolytes. Replace potassium after the magnesium and calcium infusion. Continue ceftriaxone for urinary tract infection. Follow-up culture results andtailor antibiotics accordingly. O2 supplementation to maintain O2 sat greater than 90%. GI/DVT prophylaxis. IP vs OBS Justification Based on differential dx, clinical care plan, and risk of adverse events, if untreated, in my clinical judgement this patient requires an acute care setting as: INPATIENT because of an expectation of an over 2 midnight stay. Estimated length of stay (# of days): 3 Documented By: Michelle Lock 1849 Signed By: <Electronically signed by Michelle Lock> 11/08/231856 [facility] Work Phone: [phone] 150-532505-10-2024 NotePROCEDURE: Without IV contrast, axial helical 5 mm [...] TRANSCRIBED BY: ELECTRONICALLY SIGNED BY: Perez Gamble MDNot [id number] Instructions* Patient Instructions* Colt Live DO - 09/08/2023 1:25 PM EDT You are doing excellent. Return to see me at 1 year from surgery documented in this [id number] History of Present illness Narrative* Colt Live DO - 09/08/2023 1:18 PM EDT Patient seen examined. She is doing quite [...] her questions were answered. documented in this [id number] History of Present illness Narrative* Meng Leos DMD, MD - 08/23/2023 8:35 AM EDT Teaching Physician Note: I saw and evaluated the patient. I personally obtained the kim and critical portions of the historyand physical exam. I reviewed the resident's documentation and discussed the patient with the resident. I agree with the resident's medical decision making as documented in the resident's note. Left condylar head fracture shows no change in position on panoramic imaging today. Occlusion is stable with dentures, and KEN is 40mm without pain. No operative intervention required given appropriate sikhism of function. Follow up with dentistry for denture adjustment. Meng Leos DMD, MD * Robb EmmaJEN - 08/18/2023 10:24 PM EDT ORAL SURGERY CLINIC FOLLOW UP VISIT Chief [...] is properly healing. Assessment / Diagnosis: Edentulous [[id number]] Normal post operative course Normal postoperative course. [...] or worsening symptoms appear. Emma Zamudio DDS * Twila Laboy - 08/18/2023 1:37 PM EDT Images from the original note were not included. documented in this [id number] History of Present illness Narrative* Emma Zamudio DDS - 08/18/2023 10:24 PM EDT ORAL SURGERY CLINIC FOLLOW UP VISIT Chief [...] and instruments to correct denture in our [facility] clinic, no denture adjustments were made today. Patient is properly healing. Assessment / Diagnosis: Edentulous [[id number]] Normal post operative course Normal postoperative course. [...] or worsening symptoms appear. Emma Zamudio DDS * Twila Laboy - 08/18/2023 1:37 PM EDT Images from the original note were not included. documented in this [id number] Evaluation + Plan note* Assessment & Plan Note - NATALIE Gonsalez - 07/27/2023 1:29 PM EDT Associated Problem(s): Stage 3 chronic kidney disease (CMS/HCC) They have not followed up recently with Dr. Dean At one point her creatinine right about 4.2May 2023 creatinine 2.06 [facility] Work Phone: [phone]) 780-833803-26-2024 Evaluation + Plan note* Assessment & Plan Note - NATALIE Gonsalez - 07/27/2023 1:29 PM EDTAssociated Problem(s): BMI 25.0-25.9,adult Her weight is down approximately 30 pounds. She relates this to recent mandibular fracture and difficulty with dentures. [facility] Work Phone: [phone] Miscellaneous Notes* Assessment & Plan Note - NATALIE Gonsalez - 07/27/2023 1:29 PM EDTAssociated Problem(s): Stage 3 chronic kidney disease (CMS/HCC) They have not followed up recently with Dr. Dean At one point her creatinine right about 4.2, May 2023 creatinine 2.06 * Assessment & Plan Note - NATALIE Gonsalez - 07/27/2023 1:29 PM EDT Associated Problem(s): BMI 25.0-25.9,adult Her weight is down approximately 30 pounds. She relates this to recent mandibular fracture and difficulty with dentures. * Assessment & Plan Note - NATALIE Gonsalez - 07/27/2023 1:28 PM EDT Associated Problem(s): Anticoagulated CHADS VASc 4 Currently on full dose Eliquis. Recent 30 pound weight loss puts her weight at 60 kg, discharge creatinine 2.0 Will reduce to Eliquis 2.5 mg twice daily She denies bleeding diatheses Had 1 accidental fall, denies recurrent episode. Briefly introduced Watchman device * Assessment & Plan Note - NATALIE Gonsalez - 07/27/2023 1:27 PM EDT Associated Problem(s): Essential hypertension Optimal in office * Assessment & Plan Note - NATALIE Gonsalez - 07/27/2023 1:27 PM EDT Associated Problem(s): Hyperlipidemia Moderate intensity statin * Assessment & Plan Note - NATALIE Gonsalez - 07/27/2023 1:27 PM EDT Associated Problem(s): Pulmonary hypertension (CMS/HCC) October 2022 TTE RVSP 84 mmHg She denies any prior PE, has longstanding tobacco abuse, chronic hypoxia and COPD May 2023 TTE RVSP 60 mmHg RV function size reported to be normal * Assessment & Plan Note - NATALIE Gonsalez - 07/27/2023 1:26 PM EDT Associated Problem(s): Abnormal echocardiogram May 2023 TTE LVEF 75% Aortic valve area 1.2 cm RVSP 60 mmHg * Assessment & Plan Note - NATALIE Gonsalez - 07/27/2023 1:25 PM EDT Associated Problem(s): A-fib (CMS/[facility]) PAF May 2023 discharge summary documents inpatient afib with RVR - spontaneous conversion RRR in office today No prior antiarrhythmic No MR * Assessment & Plan Note - NATALIE Gonsalez - 07/27/2023 1:24 PM EDT Associated Problem(s): Aortic stenosis October 2022 TTE Aortic Stenosis p46;m26 May 2023 TTE Aortic stenosis p28:m15 JUDITH 1.2 centimeter squared * Assessment & Plan Note - NATALIE Gonsalez - 07/26/2023 2:53 PM EDT Associated Problem(s): Current smoker 'can take it or leave it' Did ok while in SNF Currently 5 per day Continued every day tobacco use. Have reviewed the negative cardiovascular impact of nicotine. Continues to decline pharmacological assistance. documented in this [facility] Work Phone: [phone]) 633-563203-26-2024 Evaluation + Plan note* Assessment & Plan Note - NATALIE Gonsalez - 07/27/2023 1:28 PM EDTAssociated Problem(s): Anticoagulated KARIDS VASc 4 Currently on full dose Eliquis. Recent 30 pound weight loss puts her weight at 60 kg, discharge creatinine 2.0 Will reduce to Eliquis 2.5 mg twice daily She denies bleeding diatheses Had 1 accidental fall, denies recurrent episode. Briefly introduced Watchman device [facility] Work Phone: [phone] 311-586503-26-2024 Evaluation + Plan note* Assessment & Plan Note - NATALIE Gonsalez - 07/27/2023 1:27 PM EDTAssociated Problem(s): Essential hypertension Optimal in office [facility] Work Phone: [phone] Evaluation + Plan note* Assessment & Plan Note - NATALIE Gonsalez - 07/27/2023 1:27 PM EDTAssociated Problem(s): Hyperlipidemia Moderate intensity statin [facility] Work Phone: [phone] Evaluation + Plan note* Assessment & Plan Note - NATALIE Gonsalez - 07/27/2023 1:27 PM EDTAssociated Problem(s): Pulmonary hypertension (CMS/HCC) October 2022 TTE RVSP 84 mmHg She denies any prior PE, has longstanding tobacco abuse, chronic hypoxia and COPD May 2023 TTE RVSP 60 mmHg RV function size reported to be normal [facility] Work Phone: [phone]) 528-459403-26-2024 Evaluation + Plan note* Assessment & Plan Note - NATALIE Gonsalez - 07/27/2023 1:26 PM EDTAssociated Problem(s): Abnormal echocardiogram May 2023 TTE LVEF 75% Aortic valve area 1.2 cm RVSP 60 mmHg [facility] Work Phone: [phone] Evaluation + Plan note* Assessment & Plan Note - NATALIE Gonsalez - 07/27/2023 1:25 PM EDTAssociated Problem(s): A-fib (CMS/HCC) PAF May 2023 discharge summary documents inpatient afib with RVR - spontaneous conversion RRR in office today No prior antiarrhythmic No MR [facility] Work Phone: [phone]) [phone] Evaluation + Plan note* Assessment & Plan Note - NATALIE Gonsalez - 07/27/2023 1:24 PM EDTAssociated Problem(s): Aortic stenosis October 2022 TTE Aortic Stenosis p46;m26 May 2023 TTE Aortic stenosis p28:m15 JUDITH 1.2 centimeter squared [facility] Work Phone: [phone] Evaluation + Plan note* Assessment & Plan Note - NATALIE Gonsalez - 07/26/2023 2:53 PM EDTAssociated Problem(s): Current smoker 'can take it or leave it' Did ok while in SNF Currently 5 per day Continued every day tobacco use. Have reviewed the negative cardiovascular impact of nicotine. Continues to decline pharmacological assistance. [facility] Work Phone: [phone] History of Present illness Narrative* NATALIE Gonsalez - 07/26/2023 2:30 PM EDT Chief Complaint I am getting along Reason for Visit Patient presents to the office today for outpatient follow-up for hospital follow-up. Last evaluated in clinic by myself March 2023. In December 2022 patient transferred care to [facility]. I still have not been able to obtain prior cardiology records. They deny any prior OR or cardiac catheterization, report prior stress testing. [...] and her daughter remain unclear as to herprior cardiovascular history and are somewhat difficult historians. She reestablished care with [facility] during summer 2022. Have not been able to get [facility] cardiology records. They deny any prior cardiac cath or OR but do report prior stress testing. I [...] fracture and difficulty with her dentures. She haschronic hypoxia, continuous O2 usage. Denies orthopnea or [...] 250-50 mcg/dose diskus inhaler 1 puff, inhalation, 2times daily RT, Rinse mouth with water after use to reduce aftertaste and incidence of candidiasis.Do not swallow. HYDROcodone-acetaminophen (Mertzon) 5-325 mg tablet 1 tablet, oral levETIRAcetam [...] p46;m26 May 2023 TTE Aortic stenosis p28:m15 UJDITH 1.2 centimeter squared A-fib ([facility]) PAF May 2023 discharge summary documents inpatient [...] with dentures. Stage 3 chronic kidney disease (CMS/HCC) They have not followed up recently with Dr. Dean At one point her creatinine right about 4.2, May 2023 creatinine 2.06 Plan: Through informed decision making process incorporating patients unique circumstances, the followingtreatment plan will be initiated: 1. Prescription drug management of cardiovascular medication for efficacy, adherence to treatment, side effect assessment and polypharmacy. Current treatment clinically warranted and to continue withfollowing modifications: - Reduce Eliquis 2.5mg twice daily 2. Labs (chem6) 3. Return for follow-up; in the interim, contact the office if new symptoms arise. FULL STACK SOFTWARE DEVELOPER 6 months Annika Kaba MSN, HEALTH CARE RECRUITER-PARK WORKER SUPERVISOR, PMHNP-[facility] Please excuse any errors in grammar or translation related to this dictation. Voice recognition software was utilized to prepare this document. documented in this [facility] Work Phone: [phone]) 437-988603-25-2024 Instructions* Patient Instructions* NATALIE Gonsalez - 07/26/2023 2:30 PM EDT [...] making process incorporating patients unique circumstances, the followingtreatment plan will be initiated: 1. Prescription drug management of cardiovascular medication for efficacy, adherence to treatment, side effect assessment and polypharmacy. Current treatment clinically warranted and to continue withfollowing modifications: - Reduce Eliquis 2.5mg twice daily 2. Labs (chem6) 3. Return for follow-up; in the interim, contact the office if new symptoms arise. FULL STACK SOFTWARE DEVELOPER 6 months You need to stop smoking. Though it is not easy, more than half of all adults smokers have quit. Weencourage you to write down all the reasons you should quit smoking and set a quit date for yourself. Ask us how we can help. You may also call 7-076-QETL-NOW for free resources and assistance. [facility]: [phone] Instructions* Patient Instructions* Colt Live DO - 07/07/2023 1:34 PM EST Your fracture remains well aligned. I expect that your knee pain is from a combination of pain from your hip joint as well as some muscular imbalance from your injury. Continue to work with physical therapy on this. Return to see me in 2 months. documented in this encounterTHE [facility] Work Phone: [phone] History of Present illness Narrative* Colt Live DO - 07/07/2023 12:54 PM EST Patient returns for follow-up I am now [...] return to see me in 2 months. documented in this encounterTHE [facility] Work Phone: [phone] Telephone encounter Note* Telephone Encounter - Elmo Allen RN - 06/15/2023 3:51 PM EST What is the need: Medicare PHU SNF Review Situation: Patient approaching the 30 day readmission period Background: Attending Meng Whitaker MD Date of Admission 05/13/2023 Date of Discharge 05/18/2023 [facility] FINAL DIAGNOSES: Hospital Problems as of 05/18/2023 * (Principal) H/O traumatic fracture Assessment: Reviewed careport patient remains in SNF 05/18/2023 7:35 PM EST [facility] ([facility]) Recommendation: continue [facility] SN[facility] Review Program closed at this time [facility] Work Phone: [phone]) [phone] Miscellaneous Notes* Telephone Encounter - Elmo Allen RN - 06/15/2023 3:51 PM EST What is the need: Medicare TOC SNF Review Situation: Patient approaching the 30 day readmission period Background: Attending Meng Whitaker MD Date of Admission 05/13/2023 Date of Discharge 05/18/2023 [facility] FINAL DIAGNOSES: Hospital Problems as of 05/18/2023 * (Principal) H/O traumatic fracture Assessment: Reviewed careport patient remains in SNF 05/18/2023 7:35 PM EST [facility] ([facility]) Recommendation: continue [facility] SNF Review Program closed at this time documented in this [id number] Instructions* Patient Instructions* Colt Live DO - 06/09/2023 8:55 AM [...] Dr. James Noriega who sees patients at [facility] documented in this [id number] History of Present illness Narrative* Colt Live DO - 06/09/2023 8:47 AM EST Doing well overall. Has had difficulties ambulating for months prior to fall. Has not been worked up much. Bilateral foot drop which was new in the past few months but present prior to surgery. Recommended she see neurology or spine surgeon near [place]. They are closer to [facility] and 1.5 hrsfrom here. They would prefer to see someone at [facility]. On eliquis. Incisions well healed. Ambulating [...] Dr. James Noriega who sees patients at [facility] documented in this [id number] Telephone encounter Note* Telephone Encounter - Elmo Allen RN - 06/01/2023 11:55 AM EST What is the need: Medicare PHU SNF Review Situation: Patient within the 30 day readmission period Background: Attending Meng Whitaker MD Date of Admission 05/13/2023 Date of Discharge 05/18/2023 [facility] FINAL DIAGNOSES: Hospital Problems as of 05/18/2023 * (Principal) H/O traumatic fracture Assessment: Reviewed careport patient remains in SNF 05/18/2023 7:35 PM EST [facility] (SNF) Recommendation: continue PHU SNF Review Process [facility] Work Phone: 1(351) 909-284201-30-2024 Miscellaneous Notes* Telephone Encounter - Elmo Allen RN - 06/01/2023 11:55 AM EST What is the need: Medicare TOC SNF Review Situation: Patient within the 30 day readmission period Background: Attending Meng Whitaker MD Date of Admission 05/13/2023 Date of Discharge 05/18/2023 [facility] FINAL DIAGNOSES: Hospital Problems as of 05/18/2023 * (Principal) H/O traumatic fracture Assessment: Reviewed careport patient remains in SNF 05/18/2023 7:35 PM EST [facility] ([facility]) Recommendation: continue [facility] SNF Review Process documented in this [id number] Telephone encounter Note* Telephone Encounter - Elmo Allen RN - 05/25/2023 3:50 PM EST What is the need: Medicare TOC SNF Review Situation: Patient within the 30 day readmission period Background: Attending Meng Whitaker MD Date of Admission 05/13/2023 Date of Discharge 05/18/2023 [facility] FINAL DIAGNOSES: Hospital Problems as of 05/18/2023 * (Principal) H/O traumatic fracture Assessment: Reviewed careport patient remains in SNF 05/18/2023 7:35 PM EST [facility] ([facility]) Recommendation: continue [facility] SNF Review Process Elmo Allen RN [facility] Work Phone: 1(121) 918-402201-23-2024 Miscellaneous Notes* Telephone Encounter - Elmo Allen RN - 05/25/2023 3:50 PM EST What is the need: Medicare TOC SNF Review Situation: Patient within the 30 day readmission period Background: Attending Meng Whitaker MD Date of Admission 05/13/2023 Date of Discharge 05/18/2023 [facility] FINAL DIAGNOSES: Hospital Problems as of 05/18/2023 * (Principal) H/O traumatic fracture Assessment: Reviewed careport patient remains in SNF 05/18/2023 7:35 PM EST [facility] ([facility]) Recommendation: continue PHU SNF Review Process Elmo Allen RN documented in this [id number] Miscellaneous Notes* Telephone Encounter - Elmo Allen RN - 05/19/2023 1:51 PM EST Patient discharged to a SNF Name of SNF: [facility] Phone number: [phone] Patient enrolled in [facility] to begin discharge review documented in this [id number] Telephone encounter Note* Telephone Encounter - Elmo Allen RN - 05/19/2023 1:51 PM EST Patient discharged to a SNF Name of SNF: [facility] Phone number: [phone] Patient enrolled in [facility] to begin discharge review [facility] Work Phone: 1(715) 113-298401-16-2024 NoteDISCHARGE SUMMARY [address] [address] Kate Hagen Date of : 1950 72 year oldfemale Attending Meng Whitaker MD Date of Admission 05/13/2023 Date of Discharge 05/18/2023 [facility] FINAL DIAGNOSES: Hospital [...] intertrochanteric fracture of right femur, initial encounter ([facility]) senna (SENOKOT) 8.6 MG tablet Take 1 Tablet by mouth daily as needed for Constipation. Qty: 30 Tablet, Refills: 0 naloxone 4 mg/0.1 mL nasal liquid Use 1 [place] in one nostril (alternate sides) as needed [...] tablet, 2.5 mg, Oral, Daily, Johnson Chau APRN-PARK WORKER SUPERVISOR, 2.5 mg at 05/18/23 1008 bumetanide (BUMEX) tablet, 2 mg, Oral, 2x Daily Diuretic, Johnson Chau APRN-PARK WORKER SUPERVISOR, 2 mg at 05/18/23 1145 bumetanide (BUMEX) tablet, 1 mg, Oral, At Bedtime, Johnson Chau APRN-CNP, 1 mg at 05/17/232200 ALPRAZolam (XANAX) tablet, 0.5 mg, Oral, Daily PRN, Johnson Chau APRN-CNP guaifenesin (MUCINEX) 600 MG 12 hour tablet, 600 mg, Oral, 2x Daily PRN, Johnson Chau APRN-CNP, 600 mg at 05/17/232200 ondansetron (ZOFRAN) 4 MG/2ML injection, 4 mg, Intravenous Push, Q4H PRN, Becca Valles MD, 4 mg at 05/15/23 0237 albuterol (PROVENTIL HFA (more content not included)...[facility] 05-18-2023 NoteDischarge plan remains SNF. Pt has been accepted at [facility]. Pt does not require precert prior to transfer, awaiting medical clearance. KONRAD Kevin, LSWT [facility] [id number] NoteOrthopaedics Progress Note Kate Hagen [id number] S: No acute events overnight. Tachycardia overnight. [...] Orthopaedic Surgery, PGY-4 Ortho Team A Pager [phone] (InfoGin Chat works best - please include all of Team A in UP Online messages) After 5 pm and on weekends, please page telephone claims representative resident ([phone]) with questions or concerns.[facility] [id number] NoteSPEECH LANGUAGE PATHOLOGY SWALLOW EVALUATION: [id number] Referral received, chart reviewed [...] arteries, PICA/AICA branches, basilar artery, SCAs and instructor creeler are patent. No vessel cutoff, aneurysm or [...] to aspiration related pu (more content not included)...[facility] [id number] NoteGERIATRIC CONSULTATION Patient Name: Kate Hagen Location: [place] [address] PCP: No primary care provider on file. [...] - reliable historian discussion with patient's family/responsible green party - reliable historian discussion with nursing staff [...] Polypharmacy; frequent falls Home meds per Johnson Chau APRN-PARK WORKER SUPERVISOR note: - Atorvastatin 20 mg daily - [...] receiving opioids - follow-up with PCP at [facility] for further benzo taper - may continue [...] liquids, prior work-up reportedly normal - consider STEEL BURNER for swallow evaluation Discharge planning - tentative [...] Pain: Yes, chronic R shoulder pain on Mertzon Change in ADLs: Yes, s/p R hip fracture Dressing: independent Grooming: independent Bathing: moderate assistance Toileting: independent Continence: independent Feeding: independent Transfers: independent Transportation: moderate assistance Grocery shopping: moderate assistance Meal preparation: moderate assistance Housecleaning: moderate assistance Laundry: moderate assistance Finances: minimal assistance, occasionally needs reminders Telephone use: independent Medications: independent Living Situation: with 2 daughters, ni (more content not included)...[facility] [id number] NoteOrthopaedic Surgery Progress Note S: Afib with RVR [...] -- Gen: NAD, AOx3 RLE: - baseline 3 dorsiflexion - 09/04 PF/EHL - SILT s/s/t/dp/sp - 2+ DP - Dressing c/d/i; no drainage noted Labs: CBC/PT/INR WBC RBC Hgb Hct MCV RDW Plt PT aPTT INR 05/15/23 0203 10.3 2.60 8.0 23.8 92 14.3 225 05/14/23 1428 10.0 31.0 05/13/23 2334 31 05/13/23 2334 1.30 05/13/232333 9.7 2.98 9.4 27.0 91 14.1 149 Basic Metabolic Panel Na K Cl CO2 Gap Glu BUN Cr Ca Mg PO4 05/15/23 020 1.4 05/15/23 0203 135 Comment: Note updated [...] Team A: Ortho Team A: Summer PGY-3 [phone]); Fritz PGY-1 [phone]), Keanu PGY-4 [phone]) Between 5pm-7am, weekends, and holidays please page ortho consult pager with urgent/emergent issues, [phone] CampusActively Learn [id number] NotePHYSICAL THERAPY ACUTE EVALUATION Referral received, chart reviewed. Time In: 814 Time Out: 824 Patient seen for 10 minutes evaluation Unit: [facility] Admit date/time: 05/13/2023 9:30 PM Reason for [...] wks d/t mandibular fracture Contact Precautions: CDiff [place] Full Code NPO TECHNOLOGY SALES SPECIALIST Status: Ambulatory with Cane at Baseline (+) [...] to decrease pain and to go home TECHNOLOGY SALES SPECIALIST Status: Mod I for household mobility using [...] mobility. Recommend further therapy services in a Custodial Setting once medically cleared. Will continue to [...] to modified independent Patien (more content not included)...[facility] [id number] Note OCCUPATIONAL THERAPY INITIAL EVALUATION Per RN: to keep patient at bed level for evaluation secondary to A-fib with RVR this A.M. Patient seen from 8:13 AM to 8:25 AM on 5 [facility] unit for 12 minutes. Reason for Admit: 72 year old female presents to [facility] c/o right hip pain after falling. Diagnosis: Displaced (L) mandibular condyle fracture with dislocated (L) TMJ joint (R) Intertrochanteric Femur Fx Precautions/Activity Order: [place] Full code Contact precautions: C-diff WBAT RLE [...] Dep Max Mod Min CG CS DS OR I Set-Up Comment Feeding x Grooming/Hygiene x x Simulated at bed level Bathing:UB x Simulated at bed level Bathing:LB x Simulated at bed level Dressing:UB x x To adjust hospital gown at bed level Dressing: LB x To adjust socks at bed level Toileting x Kim+ Transfers/Bed Mobility: Assistance Level Dep Max Mod Min CG CS DS OR I Set-Up Comment Toilet Transfers NT: deferred secondary to a-fib with RVR; RN requesting OT hold mobility at this time Bed Transfers Bed Mobility Endurance for Self Care: Impaired Static Sitting Balance: Impaired Dynamic Sitting Balance: Impaired UE Motor: (B) UE AROM shoulder flexion ~3/4 range (B) UE elbow flex/ext WFL (B) UE wrist flex/ext WFL (B) arboriculture instructor strength 4/5 Cognition: Orientation: Oriented to person, place, and date Follows Commands: WFL Patient/Family Education: Patient instructed in roles, goals, treatment plan: demonstrated good verbal understanding Patient up in bed with call light in reach. DME: With Patients permission ordered no equipment via InfoGin Order. If any questions contact [facility] DME Provider at [phone]. 6 Clicks Daily Activity OT 05/15/2023 Help [...] Guard Assist/Supervision 4 - Non = Modified [place]/Independent ASSESSMENT: Kate Perez Xiao s/p Cephalomedullary ramon right femur with frequent [...] perform bed transfers w (more content not included)...The [facility]01-12-2024 Note05/14/23 1627 Assessment and Discharge Planning Evaluation READMISSION LESS [...] intervene as needed for discharge planning. KONRAD Rivas LISWThe [facility]01-12-2024 NoteOrthopaedic Surgery Progress Note S: Patient examined after [...] 101 18 98 % Nasal cannula 3 05/13/23 2235 -- -- -- -- -- -- Nasal cannula 3 Gen: arousable, appropriately conversational RLE: - 5/5 DF/PF/EHL - SILT s/s/t/dp/sp - 2+ DP - Dressing c/d/i; no drainage noted; appropriate incisional tenderness Labs: CBC/PT/INR WBC RBC Hgb Hct MCV RDW Plt PT aPTT INR 05/14/23 1428 10.0 31.0 05/13/23 2334 31 05/13/23 2334 1.30 05/13/232333 9.7 2.98 9.4 27.0 91 [...] trauma Cathy Juárez MD, PGY-2 Orthopaedic Surgery [facility] Pager: [phone] Ortho Team B: Cathy Juárez MD, PGY-2 Pager [phone] Jennifer Pond, PGY-2 Pager [phone] Pau Weaver MD, PGY-2 Pager [phone] Team A: Summer PGY-3 ([phone]); Fritz PGY-1 [phone]), Keanu PGY-4 [phone]) Elective Team: Stephanie PGY-3 [phone]); Alyssa PGY-2 ([phone]) Hand Team: Rachel PGY-3 ([phone]) After 5pm, weekends, and holidays please page Ortho consult pager, [phone] [facility] [id number] NoteEXAMINATION: XR CHEST AP OR PA 1 VIEW 05/14/2023 10:20 AM CLINICAL HISTORY: pre-operative evaluation ASSOCIATED DIAGNOSIS: pre-operative evaluation ORDERING PROVIDER: JOHNSON SMALLS NOTE: COMPARISON: XR CHEST AP OR PA 1 VIEW 05/13/2023, 11:15 PM FINDINGS: Limited by technique and patient positioning. Lines, tubes, and devices: None. Lungs and pleura: Mild left basilar atelectasis or airspace disease. Cardiomediastinal silhouette: Normal cardiomediastinal silhouette. Musculoskeletal: Osteopenia limits the examination. Degenerative changes of the thoracic spine are noted. IMPRESSION: Mild left basilar atelectasis or airspace disease. MACRO: NoneThe St. Peter'[facility] HospitalSignature Therapeutics, Inc.[id number] NotePHYSICAL THERAPY CHART REVIEW Referral received, chart reviewed. Admit date/time: [...] Hysterectomy Hernia Repair Precautions: Contact Precautions: CDiff [place] Full Code NPO TECHNOLOGY SALES SPECIALIST Status: Ambulatory with Cane at Baseline (+) multiple falls over the past few weeks Plan is OR this date with Orthopedics for (R) Intertrochanteric Femur Fx Will HOLD PT Eval and f/u post-operatively Report to follow Kathleen Alonzo, PT, MPT (B) [phone] *Secure Chat with QuestionsThe St. Peter'S HospitalSignature Therapeutics, Inc.[id number] NoteI have reviewed the patient's History and Physical Examination. I have personally seen and evaluated the patient, repeating kim portions. There is no significant interval change. Surgery is still indicated. Yes Consent reviewed and signed by patient/family: Yes Operative site verified: Yes Jennifer Pond, DO Orthopedic Surgery PGY-[address] [facility] Orthopaedic Trauma After 6:00 PM, or on weekends, please page the orthopaedic on-call resident at [phone].The [facility] HospitalSignature Therapeutics, Inc.[id number] Hospital Discharge instructions Patient Education 04/28/2023 10:24:50 Urinary Tract Infection, Adult, Codt-wy-Idil Urinary Tract Infection, Adult A urinary tract infection (UTI) is an infection of any part of the urinary tract. The urinary tractincludes: The kidneys. The ureters. The bladder. The [...] Follow these instructions at home: Medicines Take ouiu-fxz-ntohstm and prescription medicines only as told by [...] a female. Use each tissue one time whenyou wipe. Drink enough fluid to keep your [...] provider. Document Revised: 11/29/2020 Document Reviewed: 11/29/2020 [employer] Patient Education 2022 [employer]. Follow Up Care 02/22/2023 10:37:46 With:Alec XIE, CARLY Grove, URO Address: When:Within 3 Month(s) [facility] 12-02-2023 Evaluation + Plan note* Assessment & Plan Note - NATALIE Gonsalez - 04/03/2023 12:04 PM ESTAssociated Problem(s): Current smoker Continued every day tobacco use. Have reviewed the negative cardiovascular impact of nicotine. Continues to decline pharmacological assistance. [facility] Work Phone: 1(876) 359-689512-02-2023 Evaluation + Plan note* Assessment & Plan Note - NATALIE Gonsalez - 04/03/2023 12:04 PM ESTAssociated Problem(s): Stage 3 chronic kidney disease (CMS/HCC) Report establish follow-up with Dr. Dean Last creatinine in our system was 4.2 [facility] Work Phone: 1([phone]) 298-263212-02-2023 Miscellaneous Notes* Assessment & Plan Note - NATALIE Gonsalez - 04/03/2023 12:04 PM ESTAssociated Problem(s): Current smoker Continued every day tobacco use. Have reviewed the negative cardiovascular impact of nicotine. Continues to decline pharmacological assistance. * Assessment & Plan Note - NATALIE Gonsalez - 04/03/2023 12:04 PM EST Associated Problem(s): Stage 3 chronic kidney disease (CMS/HCC) Report establish follow-up with Dr. Dean Last creatinine in our system was 4.2 * Assessment & Plan Note - NATALIE Gonsalez - 04/03/2023 12:03 PM EST Associated Problem(s): Diabetes mellitus type II, non insulin dependent (CMS/HCC) Maintained on statin No LONI/ARB due to CKD * Assessment & Plan Note - NATALIE Gonsalez - 04/03/2023 12:03 PM EST Associated Problem(s): Anticoagulated CHADS VASc 4 chronically anticoagulated full dose Eliquis age 72, weight 160 pounds. * Assessment & Plan Note - NATALIE Gonsalez - 04/03/2023 12:02 PM EST Associated Problem(s): Essential hypertension Optimal in office * Assessment & Plan Note - NATALIE Gonsalez - 04/03/2023 12:02 PM EST Associated Problem(s): Hyperlipidemia Low intensity statin * Assessment & Plan Note - NATALIE Gonsalez - 04/03/2023 12:00 PM EST Associated Problem(s): Abnormal echocardiogram October 2022 TTE LVEF 60 to 65% LA moderate/severe Aortic stenosis peak 46, mean 26 RVSP 84 mmHg (denies prior PE, longstanding tobacco abuse, chronic hypoxia and COPD) RV function and size were reportedly normal * Assessment & Plan Note - NATALIE Gonsalez - 04/03/2023 12:00 PM EST Associated Problem(s): A-fib (CMS/HCC) Daughter believes this was diagnosed during one of the hospitalizations prior to being under the care of of an NO. Regular rate and rhythm on exam * Assessment & Plan Note - NATALIE Gonsalez - 04/03/2023 11:59 AM EST Associated Problem(s): Aortic stenosis October 2022 TTE Aortic Stenosis p46;m26 documented in [facility]The [facility] Work Phone: 1(634) 781-855812-02-2023 Evaluation + Plan note* Assessment & Plan Note - NATALIE Gonsalez - 04/03/2023 12:03 PM ESTAssociated Problem(s): Diabetes mellitus type II, non insulin dependent (CMS/HCC) Maintained on statin No LONI/ARB due to CKD [facility] Work Phone: 1(770) 107-724912-02-2023 Evaluation + Plan note* Assessment & Plan Note - NATALIE Gonsalez - 04/03/2023 12:03 PM ESTAssociated Problem(s): Anticoagulated CHADS VASc 4 chronically anticoagulated full dose Eliquis age 72, weight 160 pounds. [facility] Work Phone: 1(293) 927-738912-02-2023 Evaluation + Plan note* Assessment & Plan Note - NATALIE Gonsalez - 04/03/2023 12:02 PM ESTAssociated Problem(s): Essential hypertension Optimal in office [facility] Work Phone: 1(447) 721-787112-02-2023 Evaluation + Plan note* Assessment & Plan Note - NATALIE Gonsalez - 04/03/2023 12:02 PM ESTAssociated Problem(s): Hyperlipidemia Low intensity statin [facility] Work Phone: 1(128) 726-717112-02-2023 Evaluation + Plan note* Assessment & Plan Note - NATALIE Gonsalez - 04/03/2023 12:00 PM ESTAssociated Problem(s): Abnormal echocardiogram October 2022 TTE LVEF 60 to 65% LA moderate/severe Aortic stenosis peak 46, mean 26 RVSP 84 mmHg (denies prior PE, longstanding tobacco abuse, chronic hypoxia and COPD) RV function and size were reportedly normal [facility] Work Phone: 1(655) 942-178012-02-2023 Evaluation + Plan note* Assessment & Plan Note - NATALIE Gonsalez - 04/03/2023 12:00 PM ESTAssociated Problem(s): A-fib (CMS/HCC) Daughter believes this was diagnosed during one of the hospitalizations prior to being under the care of of an [facility]. Regular rate and rhythm on exam [facility] Work Phone: 1([phone]) 302-760112-02-2023 Evaluation + Plan note* Assessment & Plan Note - NATALIE Gonsalez - 04/03/2023 11:59 AM ESTAssociated Problem(s): Aortic stenosis October 2022 TTE Aortic Stenosis p46;m26 [facility] Work Phone: 1(878) 617-987011-28-2023 History of Present illness Narrative* NATALIE Gonsalez - 03/30/2023 2:00 PM EST Chief Complaint So far so good Reason for Visit Routine 4-month follow-up Patient presents to the office today for outpatient follow-up for aortic stenosis, PAF, primary prevention. Last evaluated in clinic by myself December 2022. Presents today in wheelchair, utilizing oxygen. Accompanied by child Both patient and daughter are extremely difficult historians, following December visit I requested cardiology records from [facility] and those were not obtained. She presents today reporting 2 hospitalizations in March due to an seizure activity . First hospitalization she was noted to be anemic, received blood transfusion. Her hemoglobin was 7.1. She wasreportedly treated with a Lasix drip. It episode of C. difficile colitis. They report an additionaladmission due to seizure and hypokalemia. They deny [...] December they reported paroxysmal atrial fibrillation diagnosed [id number]. Prior stress testing but no cardiac catheterization. [...] right-lower field reveals decreased breath sounds. Examination ofthe left-lower field reveals decreased breath sounds. Decreased [...] 250-50 mcg/dose diskus inhaler 1 puff, inhalation, 2times daily RT, Rinse mouth with water after use to reduce aftertaste and incidence of candidiasis.Do not swallow. HYDROcodone-acetaminophen (Mertzon) 5-325 mg tablet 1 tablet, oral levETIRAcetam [...] October 2022 TTE Aortic Stenosis p46;m26 A-fib ([facility]) Daughter believes this was diagnosed during one [...] Diabetes mellitus type II, non insulin dependent ([facility]) Maintained on statin No LONI/ARB due to CKD Stage 3 chronic kidney disease ([facility]) Report establish follow-up with Dr. Dean Last creatinine in our system was 4.2 Current smoker Continued every day tobacco use. Have reviewed the negative cardiovascular impact of nicotine. Continues to decline pharmacological assistance. Plan: Obtain old records Through informed decision making process incorporating patients unique circumstances, the followingtreatment plan will be initiated: 1. Prescription drug management of cardiovascular medication for efficacy, adherence to treatment, side effect assessment and polypharmacy. Current treatment clinically warranted and to continue without modifications. 2. Labs (CBC, CHEM6) 3. Echo (moderate aortic stenosis) 4. Return for follow-up; in the interim, contact the office if new symptoms arise. FULL STACK SOFTWARE DEVELOPER 2 months I will get hospital records to see if she should be holding Kathie Annika Kaba MSN, HEALTH CARE RECRUITER-PARK WORKER SUPERVISOR, PMHNP-[facility] Please excuse any errors in grammar or translation related to this dictation. Voice recognition software was utilized to prepare this document. documented in this [facility] Work Phone: 1(372) 784-798011-28-2023 Instructions* Patient Instructions* NATALIE Gonsalez - 03/30/2023 2:00 PM EST [...] making process incorporating patients unique circumstances, the followingtreatment plan will be initiated: 1. Prescription drug management of cardiovascular medication for efficacy, adherence to treatment, side effect assessment and polypharmacy. Current treatment clinically warranted and to continue without modifications. 2. Labs (CBC, CHEM6) 3. Echo (moderate aortic stenosis) 4. Return for follow-up; in the interim, contact the office if new symptoms arise. FULL STACK SOFTWARE DEVELOPER 2 months I will get hospital records to see if she should be holding Eliquis documented in this [facility] Work Phone: 1(954) 392-757310-23-2023 Hospital Discharge instructions Patient Education 02/22/2023 10:33:13 [...] Up Care 02/03/2023 10:05:26 With:Jacqui Michael Address: [address] [place] [phone] Business (1) [facility] [place] [address] [address] [phone] Business (1) When: Unknown Comments:Office to schedule follow up in 1 to 2 months [facility]10-04-2023 Hospital Discharge instructions Patient Education 02/03/2023 10:01:15 Urinary Tract Infection, Adult, Ammu-je-Camf Urinary Tract Infection, Adult A urinary tract infection (UTI) is an infection of any part of the urinary tract. The urinary tractincludes: The kidneys. The ureters. The bladder. The [...] Follow these instructions at home: Medicines Take wbli-zmj-gtrklch and prescription medicines only as told by [...] a female. Use each tissue one time whenyou wipe. Drink enough fluid to keep your [...] provider. Document Revised: 11/29/2020 Document Reviewed: 11/29/2020 [employer] Patient Education 2022 [employer]. Follow Up Care 07/29/2022 09:55:50 With:Alec XIE, CARLY Grove, URO Address: When: Unknown Comments:Sched cysto [facility] 08-29-2023 Hospital Discharge instructions Patient Education 12/29/2022 15:03:31 Urinary Tract Infection, Adult Urinary Tract Infection, Adult A urinary tract infection (UTI) is an infection of any part of the urinary tract. The urinary tractincludes the kidneys, ureters, bladder, and urethra. These organs make, store, and get rid of urinein the body. An upper UTI affects the [...] Treatment for this condition includes: Antibiotic medicine. Ouwf-ucr-mlvfqxe medicines to treat discomfort. Drinking enough water to stay hydrated. If you have frequent infections or have other conditions such as a kidney stone, you may need to see a health care provider who specializes in the urinary tract (urologist). In rare cases, urinary tract infections can cause sepsis. Sepsis is a life- threatening condition that occurs when the body responds to an infection. Sepsis is treated in the hospital with IV antibiotics, fluids, and other medicines. Follow these instructions at home: Medicines Take jreg-hry-twnxwsl and prescription medicines only as told by your health care provider. If you were prescribed an antibiotic medicine, take it as told by your health care provider. Do notstop using the antibiotic even if you start [...] by your health care provider. Do notstop using the antibiotic even if you start to feel better. Keep all follow-up visits. This is important. This information is not intended to replace advice given to you by your health care provider. Make sure you discuss any questions you have with your health care provider. Document Revised: 11/29/2020 Document Reviewed: 11/29/2020 [employer] Patient Education 2022 [employer]. Follow Up Care 12/23/2022 14:08:39 With:Alec XIE, CARLY Grove, URO Address: When: Unknown [facility] 07-22-2023 Progress note Author Colin Levy [facility] November 21, 2022 11:31am Note Date/Time November 21, 2022 11:3 1am [facility] [address] [place] [address] Cardiology Progress Note Signed Patient: Kate Hagen MR#: [id number] : 1950 Acct:[id number] Age/Sex: 71 / F Adm Date: 3 Loc: 4P Room: 1Q5843-9 Type: ADM IN Attending Dr: Gina Poole [...] % (Auto) 70.8 Lymph % (Auto) 18.9 [place] % (Auto) 7.3 Eos % (Auto) 2.7 Baso % (Auto) 0.3 Nucleat RBC Rel Count 0.1 Neut # (Auto) 4.1 Lymph # (Auto) 1.1 [place] # (Auto) 0.4 Eos # (Auto) 0.2 Baso # (Auto) 0.0 PHA Creatinine Clear Sodium Potassium Chloride Carbon Dioxide Anion Gap BUN Creatinine Est GFR (CKD-EPI) Glucose POC Glucose 123 135 Calcium 11/21/22 11/21/22 04:47 08:37 Corrected WBC Uncorrected WBC Count RBC Hgb Hct MCV MCH MCHC RDW Plt Count MPV Neut % (Auto) Lymph % (Auto) [place] % (Auto) Eos % (Auto) Baso % (Auto) Nucleat RBC Rel Count Neut # (Auto) Lymph # (Auto) [place] # (Auto) Eos # (Auto) Baso # [...] control and aggressive diuresis Documented By: Colin Levy MD, [facility] 3 1127 Signed By: <Electronically signed by MD PLACIDO Levy> 11/21/22 1131 [facility] Work Phone: 1(940) 577-180507-21-2023 Progress note Author Gina Poole [facility] November 20, 2022 2:12pm Note Date/Time November 20, 2022 2:12 pm [facility] [address] [place] [address] Hospitalist Progress Note Signed Patient: Kate Hagen MR#: [id number] : 1950 Acct:[id number] Age/Sex: 71 / F Adm Date: 3 Loc: 4 Room: [address] [place] [address] Type: ADM IN Attending Dr: Gina Poole [...] Vial IV-PUSH 11/19/23 07:59 60 mg BID@0800,1600 OSACR Administration Magnesium Sulfate 2 gm in 50 mls @ 25 mls/hr 11/18/22 19:07 Magnesium Sulf 2gm-*Swfi* IV 11/18/23 19:06 DAILY PRN Magnesium < 1.6 Insulin Aspart 0 units 11/19/22 12:00 11/20/22 12:17 Insulin Aspart 300 Units/3 Ml Insuln.Pen SUBCUT 11/19/23 11:59 Not Given TID.WM.HS [facility] Protocol Magnesium Oxide 400 mg 11/19/22 09:00 [...] signed by Gina Poole DO> 11/20/22 1412 [facility] Work Phone: 1(799) 188-870707-21-2023 Progress note Author Jose Arriaga [facility] November 20, 2022 10:30am Note Date/Time November 20, 2022 10:3 0am [facility] [address] [place] [address] Cardiology Progress Note Signed Patient: Kate Hagen MR#: [id number] : 1950 Acct:[id number] Age/Sex: 71 / F Adm Date: 3 Loc: Room: [address] [place] [address] Type: ADM IN Attending Dr: Gina Poole [...] MPV Neut % (Auto) Lymph % (Auto) [place] % (Auto) Eos % (Auto) Baso % (Auto) Nucleat RBC Rel Count Neut # (Auto) Lymph # (Auto) [place] # (Auto) Eos # (Auto) Baso # [...] % (Auto) 68.4 Lymph % (Auto) 22.4 [place] % (Auto) 6.7 Eos % (Auto) 2.1 Baso % (Auto) 0.4 Nucleat RBC Rel Count 0.1 Neut # (Auto) 3.7 Lymph # (Auto) 1.2 [place] # (Auto) 0.4 Eos # (Auto) 0.1 [...] MPV Neut % (Auto) Lymph % (Auto) [place] % (Auto) Eos % (Auto) Baso % (Auto) Nucleat RBC Rel Count Neut # (Auto) Lymph # (Auto) [place] # (Auto) Eos # (Auto) Baso # [...] signed by MD Jose Arriaga> 11/20/22 1030 [facility] Work Phone: 1(922) 239-659107-20-2023 Consult note Author Jose Arriaga [facility] November 19, 2022 2:59pm Note Date/Time November 19, 2022 2:59 pm [facility] [address] [place] [address] Cardiology Consult Note Signed Patient: Kate Hagen MR#: [id number] : 1950 Acct:[id number] Age/Sex: 71 / F Adm Date: 3 Loc: 4P Room: [id number] Type: ADM IN Attending Dr: Gina Poole [...] Lymph # (Auto) 1.5 1.6 (1.00-4.8) x10E3/uL [place] # (Auto) 0.4 0.4 (0.0-0.8) x10E3/uL Eos [...] failure treatment. Documented By: Jose Arriaga MD 0530 Signed By: <Electronically signed by MD Jose Arriaga> 11/19/22 2037 [facility] Work Phone: 1(104) 500-344907-20-2023 Progress note Author Gina Poole [facility] November 19, 2022 11:54am Note Date/Time November 19, 2022 11:5 4am [facility] [address] [place], [place] [id number] Hospitalist Progress Note Signed Patient: Kate Hagen MR#: [id number] : 1950 Acct:[id number] Age/Sex: 71 / F Adm Date: 3 Loc: Room: [address] [place] [address] Type: ADM IN Attending Dr: Gina Poole [...] 11/19/22 08:23 Fluoxetine 20 Mg Capsule PO 07/19/24 08:59 40 mg DAILY OSCAR Administration Furosemide [...] <Electronically signed by Gina Poole DO> 11/19/22 2504 [facility] Work Phone: 1(435) 594-574307-20-2023 History and physical note Author Gina Poole [facility] November 18, 2022 10:13pm Note Date/Time November 18, 2022 10:1 1pm [facility] [address] [place] [address] Hospitalist H&P Signed Patient: Kate Hagen MR#: [id number] : 1950 Acct:[id number] Age/Sex: 71 / F Adm Date: 3 Loc: Room: [address] [place] [address] Type: ADM IN Attending Dr: Gina Poole [...] tablet 1 mg PO BID PRN Anxiety 07/19/23 [History Confirmed 11/18/22] ammonium lactate 12 % [...] % (Auto) 22.5 % (.) 11/18/22 17:51 [place] % (Auto) 5.7 % (.) 11/18/22 17:51 Eos % (Auto) 1.7 % (.) 11/18/22 17:51 Baso % (Auto) 0.7 % (.) 11/18/22 17:51 Nucleat RBC Rel Count 0.0 /100 WBC (0-0.5) 11/18/22 17:51 Neut # (Auto) 4.7 x10E3/uL (1.8-7.7) 11/18/22 17:51 Lymph # (Auto) 1.5 x10E3/uL (1.00-4.8) 11/18/22 17:51 [place] # (Auto) 0.4 x10E3/uL (0.0-0.8) 11/18/22 17:51 [...] <Electronically signed by Gina Poole DO> 11/18/22 221 [facility] Work Phone: 1(525) 537-417706-27-2023 NoteHypertension is well controlled 108/62 Continue all meds Renal function stable for her- will continue to monitor and pt states she is to start F/U with Dr Zhou in [place] [facility]Un[facility]-27-2023 NoteNYHC- III- currently fluid overloaded and weight gain of 15 pounds in 2 weeks Continue GDMT- farxiga Diuretic therapy-increase bumex to 2mg in am and 1 mg in pm, repeat BMP next week Monitor daily weights, I&O, fluid restriction 1.5-2L/day, renal function and electrolytes- RTC 1month for re-evalautionUnKet[facility]06-27-2023 Note Repeat limited echo to assess RV function, RVSP- rt sided pressures, and noted D shaped septum on inpt echo.[facility]06-27-2023 Note IEY5ta3-GNMy= 4 continue metoprolol for rate control, and eliquis anticoagulationUnKettering Health [facility]06-27-2023 NotePatient here for follow up [facility] for CHF. She was seen as [...] All other systems reviewed and are negative.[facility] 10-27-2022 NoteUTP CARDIOLOGY PROGRESS NOTE HPI: Kate Hagen is a 71 y.o. female here for No chief complaint on file. Patient here for follow up [facility] for CHF. She was seen as [...] fever, chills. She recently was inpt at [facility] for resp failure, exacerbation of HFpEF, [...] Tachycardia - sinus Hypertension Paroxysmal atrial fibrillation; [id number] - 4 (age, female, HTN, HF) - [...] CV Testin10/09/22 Echo (more content not included)...[facility]05-23-2023 Note [facility] Cardiology Clinic Note Chief [...] Eliquis. HPI: Kate was originally seen by [facility] during her admission to [facility] at the beginning of March,. She [...] 04/13/2022 Today she was just discharged from [facility] where she was admitted for UTI. [...] a past medical history of Atrial fibrillation ([facility]) and CHF (congestive heart failure) ([facility]). Surgical History She has no past surgical [...] Event monitor: Sinus (more content not included)...[facility]04-27-2023 Evaluation note* Encounter Date Diagnosis Assessment [...] We will check PTH and vitamin D. Bridj Other 03-29-2023 Hospital Discharge instructions Patient Education [...] 04/19/2006 Document Revised: 01/06/2019 Document Reviewed: 03/19/2017 [employer] Patient Education 2020 [employer] Follow Up Care 06/10/2022 11:44:43 With:Alec XIE, CARLY [place], URO Address: When:Within 6 Month(s) [facility] 03-06-2023 [facility] Cardiology Clinic Note Chief Complaint: Patient here for 3 mo follow up CHF and afib. She was started on spironolactone at last apt in Apr 2022 by Linette Sanchez CNP. Had labs a few days after that. Denies chest pain and palpitations. Denies lightheadedness and bleeding on Eliquis. HPI: Kate was originally seen by [facility] during her admission to [facility] at the beginning of March,. She [...] 04/13/2022 Today she was just discharged from [facility] where she was admitted for UTI. [...] fraction (HFrEF) Tachycardia Hypertension Paroxysmal atrial fibrillation; [id number] - 4 (age, female, HTN, HF) - she requires long-term anticoagulation for stroke prophylaxis. She denies bleeding issues. Continue Eliquis 5mg BID. Nonrheumatic aortic valve stenosis; moderate on echocardiogram 08/2021 Benign hypertensive kidney disease with chronic kidney disease stage I through stage IV Plan: The patient's daughter tells me that her mother's heart rate is typical (more content not included)...[facility]02-08-2023 Hospital Discharge instructions Patient Education 06/10/2022 [...] Follow these instructions at home: Medicines Take ztlt-vpq-jptwbwe and prescription medicines only as told by [...] or the blood stops without treatment. Take rnus-eur-jjlokeg and prescription medicines only as told by your health care provider. Drink enough fluid to keep your urine clear or pale yellow. This information is not intended to replace advice given to you by your health care provider. Make sure you discuss any questions you have with your health care provider. Document Released: 04/19/2006 Document Revised: 09/13/2019 Document Reviewed: 05/22/2017 [employer] Patient Education 2020 [employer]. Follow Up Care 05/06/2022 14:07:41 With:Alec XIE, CARLY [place], URO Address: When: Unknown [facility] 12-12-2022 NotePatient here for follow up TB for CHF. She was seen as inpatient consult on 03/06/2022 by Madi Sanchez CNP. She was just discharged from [facility] again today for UTI and pneumonia. She will be having iron infusions set up soon for anemia. Denies chest pain and bleeding on Eliquis. Review of Systems Cardiovascular: Positive for dyspnea on exertion. Respiratory: Positive for shortness of breath. Musculoskeletal: Positive for muscle weakness. Neurological: Positive for seizures (hx of). All other systems reviewed and are negative.[facility] 04-13-2022 NoteCardiovascular Medicine [facility] SUBJECTIVE Chief Complaint Patient presents with Congestive Heart Failure Atrial Fibrillation Kate Hagen is a 71 y.o. female here for follow-up. MARIBEL Love was originally seen by [facility] during her admission to [facility] at the beginning of March,. She [...] 04/13/2022 Today she was just discharged from [facility] where she was admitted for UTI. [...] warm and dry. (more content not included)...[facility]10-17-2022 Hospital Discharge instructions Patient Education 02/16/2022 [...] drinks. ?Tomatoes and foods made with tomatoes. ?Normal or spicy foods. ?Chocolate and peppermint. Do not drink alcohol. General instructions Take iopu-boa-zrsvfac and prescription medicines only as told by [...] unsweetened, w/added ascorbic acid 1 cup 0.5 [place] 1 cup 0.7 Vegetables Cooked Green beans 1 cup 4.0 Carrots 1/2 cup sliced 2.3 Peas 1 cup 8.8 Potato (baked, with skin) 1 medium potato 3.8 Raw [place] (with peel) 1 cucumber 1.5 Lettuce 1 [...] 8.7 Peanuts 1/2 cup 7.9 Chart from [facility] 2013. 02/16/2022 13:00:15 Colonoscopy, Care After Surgery Arabella (Custom) Colonoscopy Care After Surgery Please read the instructions outlined below and refer to this sheet in the next few weeks. These discharge instructions provide you with general information on caring for [facility] Your doctor may also give you specific [...] Up Care 12/31/2021 15:48:46 With:Kylah BELL Address: [address] [place] [address]. [address] [place] [address] Business (1) When: Unknown Comments:Call for any problems.Office will call to schedule follow up appointment (appointment for 1-2 weeksfrom today) [facility]10-17-2022 Evaluation + Plan noteExtracted from: Title:Anesthesia post op endo Author:Barry Huddleston MD Date:02/16/22 Plan Transfer/ Discharge: Patient can be discharged from PACU when criteria met. Condition good. Extracted from: Title:Anesthesia Pre-Op endo Author:Mine Huddleston MD Date:02/16/22 Plan [place] [employer] (ASA) physical status classification: [...] Diff 12/31/21 * Comprehensive Metabolic Panel 12/31/21 [facility]08-31-2022 Hospital Discharge instructions Patient Education 12/31/2021 14:40:35 [...] drinks. ?Tomatoes and foods made with tomatoes. ?Normal or spicy foods. ?Chocolate and peppermint. Do not drink alcohol. General instructions Take kahx-gcd-mbegdwr and prescription medicines only as told by [...] 07/09/2004 Document Revised: 08/15/2018 Document Reviewed: 08/15/2018 [employer] Patient Education 2019 [employer]. Follow Up Care 11/24/2021 14:47:03 With:Lani Wasserman CNP Address: When:1 to 2 weeks [facility] 08-13-2022 Evaluation note* Encounter [...] understanding and is agreeable with treatment plan Bridj Other 12-01-2021 History general Narrative - Reported* Type Description Date Medical History Macular degeneration bilateral e yes Medical History Continuous oxygen 2L/NC Medical History CHF- Does not follow with Cardio logy, managed by PCP Dr. Lora Medical History COPD Medical History Hx of [employer] 04/2021 Bridj Other 12-01-2021 History general Narrative - Reported* Type Description Date Medical History Macular degeneration bilateral e yes Medical History Continuous oxygen 2L/NC Medical History CHF- Does not follow with Cardiology, managed by PCP Dr. Lora Medical History COPD Medical History Hx of [employer] 04/2021 Medical History OSTEOPORESIS Surgical History GALL BLADDER Surgical History HERNIA REPAIR Surgical History BOWEL REDUCTION Surgical History HYSTERECTOMY 1994 Hospitalization History SEE ABOVE Bridj Other Consult note Author Jose Arriaga [facility] November 19, 2022 2:59pm Note Date/Time November 19, 2022 2:59 pm [facility] [address] [place] [address] Cardiology Consult Note Signed Patient: Kate Hagen MR#: [id number] : 1950 Acct:[id number] Age/Sex: 71 / F Adm Date: 3 Loc: Room: [address] [place] [address] Type: ADM IN Attending Dr: Gina Poole [...] Lymph # (Auto) 1.5 1.6 (1.00-4.8) x10E3/uL [place] # (Auto) 0.4 0.4 (0.0-0.8) x10E3/uL Eos [...] 3.4 L (3.5-5.7) gm/dL Intake and Output 07/19/23 07/20/23 07/20/23 23:59 07:59 15:59 Intake Total 60 / [...] <Electronically signed by MD Jose Arriaga> 11/19/22 1459 [facility] Work Phone: Discharge summary Author Gina Poole [facility] November 21, 2022 3:38pm Note Date/Time November 21, 2022 3:39 pm [facility] [address] [place], [place] [address] Discharge Summary Signed Patient: Kate Hagen MR#: [id number] : 1950 Acct:[id number] Age/Sex: 71 / F Adm Date: 3 Loc: 4P Room: [id number]: Gina Poole DO Copies to: [...] % (Auto) 70.8, Lymph % (Auto) 18.9, [place] % (Auto) 7.3, Eos % (Auto) 2.7, Baso % (Auto) 0.3, Nucleat RBC Rel Count 0.1, Neut # (Auto) 4.1, Lymph # (Auto) 1.1, [place] # (Auto) 0.4, Eos # (Auto) 0.2, [...] signs - Medication management and education - [facility] on 11/26 - result to Primary [...] signed by Gina Poole DO> 11/21/22 1538 [facility] Work Phone: Evaluation + Plan note Future Appointments Appointment Date:02/06/2022 01:00:00 PM Scheduled Provider: Location:[facility] Appointment Type:Surgery PAT COVID Testing Appointment Date:02/16/2022 10:30:00 AM Scheduled Provider: Location:[facility] Appointment Type:Surgery FT Appointment Date:02/16/2022 12:30:00 PM Scheduled Provider: Location:[facility] Appointment Type:Surgery FT Future Scheduled Tests Laboratory* Fecal WBC Lactoferrin 12/31/21 * Giardia lamblia, Direct Detection EIA 12/31/21 * O & P Exam, Routine 12/31/21 * Clostridium difficile by PCR 12/31/21 * Enteric Panel by PCR 12/31/21 * CBC w/ Auto Diff 12/31/21 * Comprehensive Metabolic Panel 12/31/21 Radiology* CT Abdomen/Pelvis w/ Contrast 12/31/21 [facility] Evaluation + Plan note Future Appointments Appointment Date:02/16/2022 10:30:00 AM Scheduled Provider: Location:[facility] Appointment Type:Surgery FT Appointment Date:02/16/2022 12:30:00 PM Scheduled Provider: Location:[facility] Appointment Type:Surgery FT Future Scheduled Tests Laboratory* Fecal WBC Lactoferrin 12/31/21 * Giardia lamblia, Direct Detection EIA 12/31/21 * O & P Exam, Routine 12/31/21 * Clostridium difficile by PCR 12/31/21 * Enteric Panel by PCR 12/31/21 * CBC w/ Auto Diff 12/31/21 * Comprehensive Met[facility] Appointment Date:06/10/2022 09:30:00 AM Scheduled Provider:Jacqui Michael MD Location:[facility] Appointment Type:URO Office Visit Future Scheduled Tests Laboratory* Fecal WBC Lactoferrin 12/31/21 * Giardia lamblia, Direct Detection EIA 12/31/21 * O & P Exam, Routine 12/31/21 * Clostridium difficile by PCR 12/31/21 * Enteric Panel by PCR 12/31/21 * CBC w/ Auto Diff 12/31/21 * Comprehensive Metabolic [facility]31/21 [facility]ments Appointment Date:06/24/2022 08:30:00 AM Scheduled Provider: Location:[facility] Appointment Type:URO Nurse Visit Appointment Date:07/29/2022 09:00:00 AM Scheduled Provider:Jacqui Michael MD Location:[facility] Appointment Type:URO Office Visit Diagnostic Tests Pending [...] * Comprehensive Metabolic Panel 12/31/21 [facility] evaluation + Plan note Future Appointments Appointment Date:06/24/2022 08:30:00 AM Scheduled Provider: Location:[facility] Appointment Type:URO Nurse Visit Appointment Date:07/29/2022 09:00:00 AM Scheduled Provider:Jacqui Michael MD Location:[facility] Appointment Type:URO Office Visit Diagnostic Tests Pending * Urine Culture 06/10/22 Future Scheduled Tests Laboratory* Fecal WBC Lactoferrin 12/31/21 * Giardia lamblia, Direct Detection EIA 12/31/21 * O & P Exam, Routine 12/31/21 * Clostridium difficile by PCR 12/31/21 * Enteric Panel by PCR 12/31/21 * CBC w/ Auto Diff 12/31/21 * Comprehensive Metabolic Panel [facility]31/[facility] Appointment Date:07/29/2022 09:00:00 AM Scheduled Provider:Jacqui Michael MD Location:[facility] Appointment Type:URO Office Visit Future Scheduled Tests Laboratory* Fecal WBC Lactoferrin 12/31/21 * Giardia lamblia, Direct Detection EIA 12/31/21 * O & P Exam, Routine 12/31/21 * Clostridium difficile by PCR 12/31/21 * Enteric Panel by PCR 12/31/21 * CBC w/ Auto Diff 12/31/21 * Comprehensive Metabolic Panel 12/31/21 [facility] evaluation + Plan note Future Appointments Appointment Date:02/03/2023 09:00:00 AM Scheduled Provider:Jacqui Michael MD Location:[facility] Appointment Type:URO Office Visit Future Scheduled Tests Laboratory* Fecal WBC Lactoferrin 12/31/21 * Giardia lamblia, Direct Detection EIA 12/31/21 * O & P Exam, Routine 12/31/21 * Clostridium difficile by PCR 12/31/21 * Enteric Panel by PCR 12/31/21 * CBC w/ Auto Diff 12/31/21 * Comprehensive Metabolic Panel 12/31/21 [facility] evaluation + Plan note Future Appointments Appointment Date:02/08/2023 09:45:00 AM Scheduled Provider: Location:[facility] Appointment Type:Urology CALL PAT FT Appointment Date:02/22/2023 10:45:00 AM Scheduled Provider: Location:[facility] Appointment Type:Urology FT [facility] evaluation + Plan note Future Appointments Appointment Date:04/28/2023 09:45:00 AM Scheduled Provider:Jacqui Michael MD Location:[facility]O [facility] Appointment Date:05/14/2023 01:20:00 PM Scheduled Provider:Lani Wasserman CNP Location:[facility] Appointment Type:[facility] Follow Up [facility] evaluation + Plan note Future Appointments Appointment Date:03/15/2024 10:45:00 AM Scheduled Provider:Jacqui Michael MD Location:[facility] Appointment Type:URO Office Visit [facility] evaluation note* Diagnosis Onset Date Resolution Status CHF (congestive heart failure) acute CHF exacerbation [facility] Work Phone: evaluation note* Diagnosis Onset Date Resolution Status Acute diastolic CHF (congest joan heart failure), NYHA class 3 acute Aortic stenosis acute CHF (congestive heart failure) acute CHF exacerbation acute Pulmonary hypertension acute [facility] Work Phone: Evaluation note* Diagnosis [...] Unspecified essential hypertension documented in this encounter [facility] Work Phone: Evaluation note* Diagnosis Nonrheumatic aortic valve stenosis Pulmonary hypertension (CMS/HCC) Other chronic pulmonary heart diseases documented in this encounter [facility] Work Phone: Evaluation note* Diagnosis Nonrheumatic aortic valve stenosis Pulmonary hypertension (CMS/HCC) Other chronic pulmonary heart diseases documented in this encounter [facility] Work Phone: Evaluation note* Diagnosis Closed displaced intertrochanteric fracture of right femur, initial encounter (HCC)- [facility] intertrochanteric fracture of right femur, initial encounter ([facility]) [facility] Diagnosis Anticoagulated- Primary Encounter for long-term (current) use of anticoagulants Paroxysmal atrial fibrillation (CMS/HCC) Atrial fibrillation Nonrheumatic aortic valve stenosis Abnormal echocardiogram Nonspecific (abnormal) findings on radiological and other examination of other intrathoracic organs Pulmonary hypertension (CMS/HCC) Other chronic pulmonary heart diseases Mixed hyperlipidemia Essential hypertension Unspecified essential hypertension Diabetes mellitus type II, non insulin dependent ([facility]/HCC) Type II or unspecified type diabetes mellitus without mention of complication, not stated as uncontrolled Stage 3b chronic kidney disease ([facility]/HCC) BMI 25.0-25.9,adult Current smoker documented in this encounter [facility] Work Phone: Evaluation note* Diagnosis Edentulous- Primary [facility] Diagnosis Edentulous- Primary [facility]odontia [facility] Diagnosis Closed displaced intertrochanteric fracture of right femur, initial encounter (HCC)- Primary [facility] Diagnosis Closed displaced intertrochanteric fracture of right femur, initial encounter (HCC) [facility] Diagnosis Onset Date Resolution Status Acute kidney injury superimposed on CKD acute Hypocalcemia acute Hypomagnesemia acute UTI (urinary tract infection) acute [facility] Work Phone: Evaluation note* Diagnosis Onset Date Resolution Status Acute kidney injury superimposed on CKD acute Anemia of renal disease acut e Hypocalcemia acute Hypomagnesemia acute Secondary hyperparathyroidism (of renal origin) acute UTI (urinary tract infection) acute [facility] Work Phone: Evaluation note* Diagnosis Onset Date Resolution Status Acute kidney injury superimposed on CKD acute Anemia of renal disease acut e Secondary hyperparathyroidism (of renal origin) acute UTI (urinary tract infection) acute Hypocalcemia resolved Hypomagnesemia resolved Anemia of renal disease acut e Chronic renal impairment, stage 3a acute Clostridium difficile carrier acute Diarrhea acute Secondary hyperparathyroidism (of renal origin) acute Stage 3 chronic kidney disease noneactive [facility] Work Phone: Evaluation note* Diagnosis Panic attacks ([facility]) Panic disorder without agoraphobia documented in this encounter [facility]* Diagnosis Xerosis cutis- Primary Other specified disease of sebaceous glands Diabetes mellitus due to underlying condition with diabetic polyneuropathy, unspecified whether yeast maker insulin use ([facility]) Pain due to onychomycosis of toenails of both feet documented in this encounter [facility] HealthcareEvaluation note* Diagnosis Closed displaced intertrochanteric fracture of right femur, initial encounter ([facility])- Primary documented in this encounter [facility] Work Phone: Evaluation note* Diagnosis Closed displaced intertrochanteric fracture of right femur, initial encounter (HCC) documented in this encounter [facility] Work Phone: History and physical note Author Gina Poole [facility] November 18, 2022 10:13pm Note Date/Time November 18, 2022 10:[address] [place] [address] Hospitalist H&P Signed Patient: Kate Hagen MR#: [id number] : 1950 Acct:[id number] Age/Sex: 71 / F Adm Date: 3 Loc: 4 Room: [address] [place] [address] Type: ADM IN Attending Dr: Gina Poole [...] % (Auto) 22.5 % (.) 11/18/22 17:51 [place] % (Auto) 5.7 % (.) 11/18/22 17:51 Eos % (Auto) 1.7 % (.) 11/18/22 17:51 Baso % (Auto) 0.7 % (.) 11/18/22 17:51 Nucleat RBC Rel Count 0.0 /100 WBC (0-0.5) 11/18/22 17:51 Neut # (Auto) 4.7 x10E3/uL (1.8-7.7) 11/18/22 17:51 Lymph # (Auto) 1.5 x10E3/uL (1.00-4.8) 11/18/22 17:51 [place] # (Auto) 0.4 x10E3/uL (0.0-0.8) 11/18/22 17:51 [...] signed by Gina Poole DO> 11/18/22 2213 [facility] Work Phone: History and physical note Author Michelle Lock [facility] November 08, 2023 6:58pm Note Date/Time November 08, 2023 6:51p m [facility] [address] [place] [address] Hospitalist H&P Signed with Colby Patient: Kate Hagen MR#: [id number] : 1950 Acct:[id number] Age/Sex: 72 / F Adm Date: 4 Loc: Room: [address] [place] [address] Type: ADM IN Attending Dr: Michelle Lock MD Copies to: Michelle Barber II, MD~ ADDENDUM1 Continue IV fluids, will monitor for fluid overload given history of pulmonary hypertension. Follow-up labs in the morning. Addendum Documented By: Michelle Lock 11/08/231857 Addendum Signed By: <Electronically signed by Michelle Lock> 11/08/238 HPI DATE OF EXAMINATION: 11/08/23 CHIEF COMPLAINT: Abnormal HISTORY OF PRESENT ILLNESS: This is a 72-year-old female with an extensive past medical history which includes congestive heart failure, pulmonary hypertension, chronic kidney disease, anemia, type 2 diabetes, who was sent here by her primary care physician for abnormal labs. According to the patient, she has been having numbness and tingling in her lower extremities as well as her hands. This has been going on for a few days. Because her symptoms were not improving in fact they are getting worse she went to see her primary care doctor who ordered some labs on her and it showed that she was severely hypocalcemic so she was sent to our emergency department. In emergency department she was found to have a calcium of 4.0, magnesium of 0.9, and acute kidney injury with a creatinine of 2.4 from 1.4. She is being admitted for electrolyte derangement. Of note on the EKG she also had a prolonged QTc in the 500s. Other than the numbness and tingling, she has no other complaints. She denies any shortness of breath, chest pain, lightheadedness or dizziness. She does have a history of C. difficile was recent for 10 days recently and she still has some loose stool butshe said it has improved significantly. Other lab abnormalities included a white count of 14,000 and her UA was positive for leukocyte Estrace. Review of Systems Review of Systems All other systems reviewed & are negative unless noted below or in HPI [facility] Medical History Arthritis Problem List clean-up per request of Phys. EHR Cmte Chronic low back pain Problem List clean-up per request of Phys. EHR Cmte Anxiety Problem List clean-up per request of Phys. EHR Cmte Depression Problem List clean-up per request of Phys. EHR Cmte Bronchial spasms Problem List clean-up per request of Phys. EHR Cmte Bronchial asthma Problem List clean-up per request of Phys. EHR Cmte Macular degeneration of both eyes Problem List clean-up per request of Phys. EHR Cmte Glaucoma, right eye Problem List clean-up per request of Phys. EHR Cmte Sleep apnea treated with continuous positive airway pressure (CPAP) Problem List clean-up per request of Phys. EHR Cmte Diabetes Problem List clean-up per request of Phys. EHR Cmte Hyperlipidemia Problem List clean-up per request of Phys. EHR Cmte CHF (congestive heart failure) Problem List clean-up per request of Phys. EHR Cmte Afib Problem List clean-up per request of Phys. EHR Cmte COPD (chronic obstructive pulmonary disease) Problem List clean-up per request of Phys. EHR Cmte Family History Brother Myocardial infarction Father Myocardial infarction Mother History of open heart surgery Emphysema of lung COPD (chronic obstructive pulmonary disease) Sister Hypertension Stroke Sister Hypertension Stroke Sister Stroke Brother Legacy FamHx Relation: Brother(s) Sister Social History Smoking Status: Current every day smoker Tobacco Type: cigarettes Substance Use Type: None Meds Medications and Allergies Allergies bee venom protein (honey bee) Allergy (Unknown, Verified 11/08/23 11:53) Anaphylaxis grapefruit Allergy (Unknown, Verified 11/08/23 11:53) rash naproxen Allergy (Unknown, Verified 11/08/23 11:53) Unknown Reaction pinneapple Allergy (Unknown, Uncoded 08/27/22 15:04) rash virgin wool Allergy (Unknown, Uncoded 11/08/23 11:53) Unknown Reaction Home Medications albuterol sulfate 90 mcg/actuation aerosol inhaler (Ventolin HFA) 1 inh inhalation Q4HR 11/18/22 [History Confirmed 11/08/23] alprazolam 1 mg tablet 1 mg PO TID PRN Anxiety 11/18/22 [History Confirmed 11/08/23] ammonium lactate 12 % lotion 1 applic topical BID PRN dry skin 11/18/22 [History Confirmed 11/08/23] apixaban 5 mg tablet (Eliquis) 2.5 mg PO BID 11/18/22 [History Confirmed 11/08/23] brexpiprazole 1 mg tablet (Rexulti) 1 mg PO QHS 11/18/22 [History Confirmed 11/08/23] bumetanide 2 mg tablet 2 mg PO BID 11/18/22 [History Confirmed 11/08/23] cyclobenzaprine 10 mg tablet 10 mg PO TID 11/18/22 [History Confirmed 11/08/23] dapagliflozin propanediol 10 mg tablet (Chrisxiga) 10 mg PO DAILY 11/18/22 [History Confirmed 11/08/23] dulaglutide 0.75 mg/0.5 mL subcutaneous pen injector (Trulicity) 0.75 mg subcut QWEEK 11/18/22 [History Confirmed 11/08/23] fluoxetine 40 mg capsule 40 mg PO DAILY 11/18/22 [History Confirmed 11/08/23] fluticasone 250 mcg-salmeterol 50 mcg/dose blistr powdr for inhalation (Advair Diskus) 2 inh inhalation QID 11/18/22 [History Confirmed 11/08/23] hydrocodone 5 mg-acetaminophen 325 mg tablet 1 tab PO Q6HR PRN Pain 11/18/22 [History Confirmed 11/08/23] magnesium oxide 400 mg (241.3 mg magnesium) tablet 400 mg PO BID 11/18/22 [History Confirmed 11/08/23] metoprolol tartrate 50 mg tablet 50 mg PO BID 11/18/22 [History Confirmed 11/08/23] tizanidine 4 mg tablet 4 mg PO TID PRN Spasms 11/18/22 [History Confirmed 11/08/23] albuterol sulfate 2.5 mg/3 mL (0.083 %) solution for nebulization 2.5 mg inhalation Q6H 11/19/22 [History Confirmed 11/08/23] metolazone 2.5 mg tablet 2.5 mg PO DAILY@0730 30 days #30 tabs 11/20/22 [Rx Confirmed 11/08/23] Lactobacillus acidophilus See Rx Instructions PO Q8HR 11/08/23 [History Confirmed 11/08/23] acetaminophen 500 mg capsule 1,000 mg PO Q6HR PRN pain 11/08/23 [History Confirmed 11/08/23] amino acids (Amino Acid capsule) cap PO Q8HR 11/08/23 [History] atorvastatin 20 mg tablet 20 mg PO DAILY 11/08/23 [History Confirmed 11/08/23] calcium citrate 200 mg (950 mg) tablet See Rx Instructions PO TID 11/08/23 [History Confirmed 11/08/23] cholecalciferol (vitamin D3) 25 mcg (1,000 unit) capsule 25 mcg PO DAILY 11/08/23 [History Confirmed 11/08/23] estradiol 0.25 mg/0.25 gram (0.1 %) transdermal gel packet (Divigel) 0.25 mg transdermal .2times week 11/08/23 [History Confirmed 11/08/23] ferrous sulfate 325 mg (65 mg iron) tablet 325 mg PO BID 11/08/23 [History Confirmed 11/08/23] hyoscyamine sulfate 0.125 mg sublingual tablet 0.125 mg sublingual Q6HR PRN stomach upset 11/08/23 [History Confirmed 11/08/23] levetiracetam 250 mg tablet (Keppra) 250 mg PO BID 11/08/23 [History Confirmed 11/08/23] levofloxacin 750 mg tablet 750 mg PO DAILY 11/08/23 [History Confirmed 11/08/23] mirabegron 50 mg tablet,extended release 24 hr (Myrbetriq) 50 mg PO DAILY 11/08/23 [History Confirmed 11/08/23] multivitamin 1 tab PO DAILY 11/08/23 [History Confirmed 11/08/23] ondansetron 4 mg disintegrating tablet 4 mg PO Q6HR PRN nausea and vomiting 11/08/23 [History Confirmed 11/08/23] pantoprazole 40 mg tablet,delayed release 40 mg PO BID 11/08/23 [History Confirmed 11/08/23] potassium chloride 20 mEq tablet,extended release 20 meq PO DAILY 11/08/23 [History Confirmed 11/08/23] promethazine 25 mg tablet 25 mg PO Q6HR PRN nausea and vomiting 11/08/23 [History Confirmed 11/08/23] vancomycin 250 mg capsule 250 mg PO TID 11/08/23 [History Confirmed 11/08/23] Exam Physical Exam Vital Signs: Temp Pulse Resp BP Pulse Ox O2 Del Method O2 Flow Rate 98.3 F 74 19 130/103 H 98 Room Air 3 11/08/23 16:44 11/08/23 18:31 11/08/23 18:31 11/08/23 18:31 11/08/23 18:31 11/08/23 18:31 11/08/23 16:44 Const General: cooperative, healthy appearing, comfortable and no acute distress Orientation: alert, awake and oriented x3 HEENT Head: normal to inspection Eyes General: appearance normal, both eyes and all related structures Neck Neck: normal visual inspection Resp Effort & Inspection: normal respiratory effort and able to speak in complete sentences Cardio Jugular venous pressure: no JVD Rhythm: regular rhythm Heart Sounds: S1 normal and S2 normal GI Palpation: soft and no hepatosplenomegaly Skin General: no rashes or lesions noted Neuro General: patient alert, patient awake and patient oriented x3 Extrem General: normal to inspection Results - Hospitalist H&P Lab Results Labs: Laboratory Last Values Corrected WBC 14.5 X10E3/uL (3.8-11.6) H 11/08/23 12:12 Uncorrected WBC Count 14.5 x10E3/uL (3.8-11.6) H 11/08/23 12:12 RBC 3.18 X10E6/uL (3.60-5.00) L 11/08/23 12:12 Hgb 9.7 g/dL (11.8-15.4) L 11/08/23 12:12 Hct 28.9 % (34.0-46.4) L 11/08/23 12:12 MCV 90.9 fl (80-100) 11/08/23 12:12 MCH 30.4 pg (24.7-34.3) 11/08/23 12:12 MCHC 33.4 g/dL (32.0-35.0) 11/08/23 12:12 RDW 17.4 % (11.9-15.3) H 11/08/23 12:12 Plt Count 184 x10E3/uL (150-450) 11/08/23 12:12 MPV 7.3 fl (6.3-10.7) 11/08/23 12:12 Neut % (Auto) 84.2 % (.) 11/08/23 12:12 Lymph % (Auto) 9.5 % (.) 11/08/23 12:12 [place] % (Auto) 4.7 % (.) 11/08/23 12:12 Eos % (Auto) 1.3 % (.) 11/08/23 12:12 Baso % (Auto) 0.3 % (.) 11/08/23 12:12 Nucleat RBC Rel Count 0.0 /100 WBC (0-0.5) 11/08/23 12:12 Neut # (Auto) 12.2 x10E3/uL (1.8-7.7) H 11/08/23 12:12 Lymph # (Auto) 1.4 x10E3/uL (1.00-4.8) 11/08/23 12:12 [place] # (Auto) 0.7 x10E3/uL (0.0-0.8) 11/08/23 12:12 Eos # (Auto) 0.2 x10E3/uL (0.0-0.45) 11/08/23 12:12 Baso # (Auto) 0.0 x10E3/uL (0.0-0.2) 11/08/23 12:12 Monocyte Dist Width 16.42 % (0.00-20.00) 11/08/23 12:12 PT 16.4 Seconds (9.0-12.9) H 11/08/23 13:34 INR 1.4 11/08/23 13:34 APTT 28.4 Seconds (25.1-36.5) 11/08/23 13:34 PHA Creatinine Clear 19.45 11/08/23 12:12 Sodium 135 mmol/L (136-145) L 11/08/23 12:12 Potassium 3.2 mmol/L (3.5-5.1) L 11/08/23 12:12 Chloride 92 mmol/L (98-107) L 11/08/23 12:12 Carbon Dioxide 28.0 mmol/L (21.0-31.0) 11/08/23 12:12 Anion Gap 18.2 mEq/L (6.0-15.0) H 11/08/23 12:12 BUN 39 mg/dL (7-25) H 11/08/23 12:12 Creatinine 2.14 mg/dL (0.60-1.20) H 11/08/23 12:12 Est GFR (CKD-EPI) 23.726 mL/Min 11/08/23 12:12 Glucose 106 mg/dL (70-100) H 11/08/23 12:12 Calcium 4.0 mg/dL (8.6-10.3) L* 11/08/23 12:12 Magnesium 0.9 mg/dL (1.9-2.7) L* 11/08/23 12:12 Total Bilirubin 0.3 mg/dl (0.3-1.0) 11/08/23 12:12 Direct Bilirubin 0.10 mg/dL (0.03-0.18) 11/08/23 12:12 Indirect Bilirubin 0.2 mg/dL 11/08/23 12:12 AST 23 U/L (13-39) 11/08/23 12:12 ALT 26 U/L (7-52) 11/08/23 12:12 Alkaline Phosphatase 54 U/L (34-104) 11/08/23 12:12 Total Creatine Kinase 229 U/L (30-223) H 11/08/23 12:12 Troponin I High Sens 15.9 pg/mL (0.0-15.0) H 11/08/23 12:12 B-Natriuretic Peptide 622.0 pg/mL (5-100) H 11/08/23 12:12 Total Protein 5.9 gm/dL (6.4-8.9) L 11/08/23 12:12 Albumin 3.1 gm/dL (3.5-5.7) L 11/08/23 12:12 Globulin 2.8 gm/dL 11/08/23 12:12 Albumin/Globulin Ratio 1.1 11/08/23 12:12 Urine Color Light-yellow (Yellow) 11/08/23 14:51 Urine Appearance Clear (Clear) 11/08/23 14:51 Urine pH 5.0 (5.0-9.0) 11/08/23 14:51 Ur Specific [place] 1.008 (1.001-1.030) 11/08/23 14:51 Urine Protein Trace mg/dL (Negative) H 11/08/23 14:51 Urine Glucose (UA) Normal mg/dL (Normal) 11/08/23 14:51 Urine Ketones Negative (Negative) 11/08/23 14:51 Urine Occult Blood Negative (Negative) 11/08/23 14:51 Urine Nitrite Negative (Negative) 11/08/23 14:51 Urine Bilirubin Negative (Negative) 11/08/23 14:51 Urine Urobilinogen Normal mg/dL (Normal) 11/08/23 14:51 Ur Leukocyte Esterase 3+ (Negative) H 11/08/23 14:51 Urine RBC 10-19 /HPF (0-4) H 11/08/23 14:51 Urine WBC 20-49 /HPF (0-4) H 11/08/23 14:51 Urine WBC Clumps Occasional /LPF (None Seen) H 11/08/23 14:51 Ur Squamous Epith Cells 1-2 /HPF (0-2) 11/08/23 14:51 Urine Bacteria Rare /HPF (None Seen) 11/08/23 14:51 Hyaline Casts 0-8 /LPF (0-8) 11/08/23 14:51 Urine Mucus Rare /LPF 11/08/23 14:51 Urine Yeast (Budding) 4+ /HPF (None Seen) H 11/08/23 14:51 Assessment & Plan Assessment/Plan (1) Hypocalcemia: (2) Hypomagnesemia: (3) Acute kidney injury superimposed on CKD: (4) UTI (urinary tract infection): Plan Admit to inpatient telemetry Is getting 2 g of calcium now as well as 4 g of magnesium. Will repeat check electrolytes. Replace potassium after the magnesium and calcium infusion. Continue ceftriaxone for urinary tract infection. Follow-up culture results andtailor antibiotics accordingly. O2 supplementation to maintain O2 sat greater than 90%. GI/DVT prophylaxis. IP vs OBS Justification Based on differential dx, clinical care plan, and risk of adverse events, if untreated, in my clinical judgement this patient requires an acute care setting as: INPATIENT because of an expectation of an over 2 midnight stay. Estimated length of stay (# of days): 3 Documented By: Michelle Lock 4 1850 Signed By: <Electronically signed by Michelle Lock> 11/08/23 1857 [facility] Work Phone: History of Present [...] medication regimen. She denies medication side effects. [facility] 250 DO Work Phone: Hospital course Narrative No data available for this section [facility] Hospital Discharge instructions No data available for this section [facility]* Initiate Home Health Time Frame: 1 Day, Location: Determined By Patient Additional Instructions Home Health to manage care: - Full code - PT/OT eval and treat - Routine vital signs - Medication management and education - BMP on 11/26 - result to Primary Care Provider -[facility] Work Phone: Progress note No data available for this section [facility] Projjkjn note Author Gina Poole [facility] November 19, 2022 11:54am Note Date/Time November 19, 2022 11:5 4am [facility] [address] [place] [address] Hospitalist Progress Note Signed Patient: Kate Hagen MR#: [id number] : 1950 Acct:[id number] Age/Sex: 71 / F Adm Date: 3 Loc: Room: [address] [place] [address] Type: ADM IN Attending Dr: Gina Poole [...] Units/3 Ml Insuln.Pen SUBCUT 11/19/23 11:59 TID.WM.HS [facility] Protocol Magnesium Oxide 400 mg 11/19/22 09:00 [...] By: <Electronically signed by Gina Poole, DO> 11/19/22 1150 [facility] Work Phone: Progress note Author Jose Arriaga [facility] November 20, 2022 10:30am Note Date/Time November 20, 2022 10:3 0am [facility] [address] [place] [address] Cardiology Progress Note Signed Patient: Kate Hagen MR#: [id number] : 1950 Acct:[id number] Age/Sex: 71 / F Adm Date: 3 Loc: Room: [address] [place] [address] Type: ADM IN Attending Dr: Gina Poole [...] MPV Neut % (Auto) Lymph % (Auto) [place] % (Auto) Eos % (Auto) Baso % (Auto) Nucleat RBC Rel Count Neut # (Auto) Lymph # (Auto) [place] # (Auto) Eos # (Auto) Baso # [...] % (Auto) 68.4 Lymph % (Auto) 22.4 [place] % (Auto) 6.7 Eos % (Auto) 2.1 Baso % (Auto) 0.4 Nucleat RBC Rel Count 0.1 Neut # (Auto) 3.7 Lymph # (Auto) 1.2 [place] # (Auto) 0.4 Eos # (Auto) 0.1 [...] MPV Neut % (Auto) Lymph % (Auto) [place] % (Auto) Eos % (Auto) Baso % (Auto) Nucleat RBC Rel Count Neut # (Auto) Lymph # (Auto) [place] # (Auto) Eos # (Auto) Baso # [...] signed by MD Jose Arriaga> 11/20/22 1030 [facility] Work Phone: Progress note Author Gina Poole [facility] November 20, 2022 2:12pm Note Date/Time November 20, 2022 2:12 pm [facility] [address] [place] [address] Hospitalist Progress Note Signed Patient: Kate Hagen MR#: [id number] : 1950 Acct:[id number] Age/Sex: 71 / F Adm Date: 3 Loc: 4P Room: 0F3084-7 Type: ADM IN Attending Dr: Gina Poole [...] signed by Gina Poole DO> 11/20/22 1412 [facility] Work Phone: Progress note Author Colin Levy [facility] November 21, 2022 11:31am Note Date/Time November 21, 2022 11:3 1am [facility] [address] [place] [address] Cardiology Progress Note Signed Patient: Kate Hagen MR#: [id number] : 1950 Acct:[id number] Age/Sex: 71 / F Adm Date: 3 Loc: 4 Room: [address] [place] [address] Type: ADM IN Attending Dr: Gina Poole [...] % (Auto) 70.8 Lymph % (Auto) 18.9 [place] % (Auto) 7.3 Eos % (Auto) 2.7 Baso % (Auto) 0.3 Nucleat RBC Rel Count 0.1 Neut # (Auto) 4.1 Lymph # (Auto) 1.1 [place] # (Auto) 0.4 Eos # (Auto) 0.2 Baso # (Auto) 0.0 PHA Creatinine Clear Sodium Potassium Chloride Carbon Dioxide Anion Gap BUN Creatinine Est GFR (CKD-EPI) Glucose POC Glucose 123 135 Calcium 11/21/22 11/21/22 04:47 08:37 Corrected WBC Uncorrected WBC Count RBC Hgb Hct MCV MCH MCHC RDW Plt Count MPV Neut % (Auto) Lymph % (Auto) [place] % (Auto) Eos % (Auto) Baso % (Auto) Nucleat RBC Rel Count Neut # (Auto) Lymph # (Auto) [place] # (Auto) Eos # (Auto) Baso # [...] pressure control and aggressive diuresis Documented By: oClin Levy MD, [facility] 3 1127 Signed By: <Electronically signed by MD PLACIDO Levy> 11/21/22 1131 [facility] Work Phone: Reason for referral (narrative)* Consultation (Routine) - Authorized Specialty Diagnoses / Procedures Referred By Contac t Referred To Contact Cardiology Diagnoses Paroxysmal atrial fibrillation (CMS/HCC) Procedures Follow Up In Cardiology Annika Kaba APRN-[employer] WORK[employer] [address] [facility] 2, [place]i [address] [place] [id number] Referral ID Status Reason Start Date Expiration Date V isits Requested Visits Authorized [id number] Authorized 03/30/2023 03/29/2024 1 1 * CV Imaging (Routine) - Pending Review Specialty Diagnoses / Procedures Referred By Contac t Referred To Contact Cardiology Diagnoses Nonrheumatic aortic valve stenosis Pulmonary hypertension (CMS/HCC) Procedures Transthoracic Echo (TTE) Complete MA ECHO TRANSTHORC R-T 2D W/WO M-MODE REC F-UP/LMTD MA DOP ECHOCARD COLOR FLOW VELOCITY MAPPING MA DOP ECHOCARD PULSE WAVE W/SPECTRAL F-UP/LMTD STD Annika Kaba APRN-[employer] WORK[employer] SUPERVISOR [address] [facility] [address], [address] [address] Referral ID Status Reason Start Date Expiration Date Visits Requested Visits Authorized [id number] Pending Review Perform Procedure 03/29/2024 1 1 [facility] Work Phone: Reason for referral (narrative)* Consultation (Routine) - Authorized Specialty Diagnoses / Procedures Referred By Contac t Referred To Contact Cardiology Diagnoses Paroxysmal atrial fibrillation (CMS/HCC) Procedures Follow Up In Cardiology Annika Kaba APRN-[employer] WORK[employer] SUPERVISOR [address] [facility] 2, [place]i [address] [place] [id number] Referral ID Status Reason Start Date Expiration Date V isits Requested Visits Authorized [id number] Authorized 07/26/2023 07/25/2024 1 1 T [facility] Work Phone: Summary Purpose Family History Relationship [...] disease: Mother(V17.3, Z82.49) Status:Active Aortic valve replaced: Kristinae r(V43.3, Z95.2) Status:Active Family history of myocardial infarction: Father(V17.3, Z82.49) Status:Active Family history of sciatica: Sister, Brother(V17.2, Z82.69) Status:Active Family history of diabetes m ellitus: Sister(V18.0, Z83.3) Status:Active Relationship Condition Age at Onset Recorded Date/T emma brother Myocardial infarction Unknown father Myocardial infarction Unknown Unknown mother History of open heart surgery Unknown Pulmonary emphysema Unknown Chronic obstructive pulmonary disease Unk nown sister Hypertension Unknown Cerebrovascular accident (CVA) Unknown sister Cerebrovascular accident (CVA) Unknown brother Unknown sister Unknown Advance Directives Advance Directive Response Recorded Date/ [...] Documents on File Type Date Recorded Patient 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 Advance Directives and Living Will 05/29/20222021-4-1 Healthcare POA Chief Complaint and Reason for Visit Chief Complaint CHF sent by Reason for Visit CHF (congestive hear t failure) CHF exacerbation Chief Complaint CHF sent by Reason for Visit Acute diastolic CHF (congestive heart failure), NYHA class 3 Aortic stenosis CHF (congestive heart failure) CHF exacerbation Pulmonary hypertension Chief Complaint sent by Reason for Visit Acute kidney injury superimposed on CKD Hypocalcemia Hypomagnesemia UTI (urinary tract infection) Chief Complaint sent by sent by Reason for Visit Acute kidney injury superimposed on CKD Anemia of renal disease Hypocalcemia Hypomagnesemia Secondary hyperparathyroidism (of renal origin) UTI (urinary tract infection) Chief Complaint sent by sent by [facility] F/U Reason for Visit Acute kidney injury superimposed on CKD Anemia of renal disease Secondary hyperparathyroidism (of renal origin) UTI (urinary tract infection) Hypocalcemia Hypomagnesemia Anemia of renal disease Chronic renal impairment, stage 3a Clostridium difficile carrier Diarrhea Secondary hyperparathyroidism (of renal origin) Stage 3 chronic kidney disease Chief Complaint * Hospital f/u: 'doing ok' * KATE HAGEN is being seen for follow-up of a hospitalization for dyspnea. Reason for Referral Specialty Diagnoses / Procedures Referred By Jack lorenzo Referred To Contact Dentistry Diagnoses Edentulous Meng Leos DMD, MD [address] [place] [address] [place] [address] Referral ID Status Reason Start Date Expiration Date V isits Requested Visits Authorized [id number] Authorized 08/18/2023 02/14/2024 3 3 Scheduling Instructions Please call the Dental Clinic at [facility] at to schedule an appointment if one was not made for you today. Comments Please treat patient for current denture adjustment, and if possible new dentures. Patient had mandibular fracture in May 2023. Specialty Diagnoses / Procedures Referred By Contac t Referred To Contact Radiology Diagnoses Closed displaced intertrochanteric fracture of right femur, initial encounter ([facility]) Procedures XR FEMUR RIGHT MINIMUM 2 VIEWS Kayden Lee PA-C [address] [place] [address] [facility] DIAGNOSTIC RADIOLOGY [address] [place] [address] [place] [address] Referral ID Status Reason Start Date Expiration Date V isits Requested Visits Authorized [id number] Authorized 06/07/2023 06/06/2024 1 1 Specialty Diagnoses / Procedures Referred By Contac t Referred To Contact Radiology Diagnoses Closed displaced intertrochanteric fracture of right femur, initial encounter ([facility]) Procedures XR HIP RIGHT W/ PELVIS MIN 2-3 VIEWS Kayden Lee PA-C [address] [place] [id number] [facility] DIAGNOSTIC RADIOLOGY [address] [place] [address] [place] [address] Referral ID Status Reason Start Date Expiration Date V isits Requested Visits Authorized [id number] Authorized 06/07/2023 06/06/2024 1 1 Specialty Diagnoses / Procedures Referred By Contac t Referred To Contact Cardiology Diagnoses Nonrheumatic aortic valve stenosis Pulmonary hypertension (CMS/HCC) Procedures Transthoracic Echo (TTE) Complete MA ECHO TRANSTHORC R-T 2D W/WO M-MODE REC F-UP/LMTD MA DOP ECHOCARD COLOR FLOW VELOCITY MAPPING MA DOP ECHOCARD PULSE WAVE W/SPECTRAL F-UP/LMTD STD Annika Kaba, HEALTH CARE RECRUITER-PARK WORKER SUPERVISOR [address] [facility] 2, [facility] [address] [place] [address] Referral ID Status Reason Start Date Expiration Date Visits Requested Visits Authorized [id number] Pending Review Perform Procedure 3 03/29/2024 1 1 Additional Source Comments INFORMATION SOURCE (unrecogn ized section and content) DATE CREATED AUTHOR 10/21/2017 [facility] DATE CREATED AUTHOR AUTHOR'S ORGANIZ ATION 10/06/2021 [facility] DATE CREATED AUTHOR AUTHOR'S ORGANIZ ATION 09/13/2022 [facility] DATE CREATED AUTHOR AUTHOR'S ORGANIZ ATION 11/02/2022 [facility] DATE CREATED AUTHOR AUTHOR'S ORGANIZ ATION 12/29/2022 [facility] DATE CREATED AUTHOR AUTHOR'S ORGANIZ ATION 12/30/2022 [employer] DATE CREATED AUTHOR AUTHOR'S ORGANIZ ATION 08/13/2023 [facility] DATE CREATED AUTHOR AUTHOR'S ORGANIZ ATION 09/10/2023 [facility] DATE CREATED AUTHOR AUTHOR'S ORGANIZ ATION 11/19/2023 [facility] DATE CREATED AUTHOR AUTHOR'S ORGANIZ ATION 12/06/2023 [facility] DATE CREATED AUTHOR AUTHOR'S ORGANIZ ATION 03/11/2024 [facility] EPIC DATE CREATED AUTHOR AUTHOR'S ORGANIZ ATION 03/17/2024 [facility] REASON FOR VISIT (unrecogniz ed section and content) Reason Comments Follow-up 4m Specialty Diagnoses / Procedures Referred By Jack lorenzo Referred To Contact Cardiology Diagnoses Nonrheumatic aortic valve stenosis Pulmonary hypertension (CMS/HCC) Procedures Transthoracic Echo (TTE) Complete MA ECHO TRANSTHORC R-T 2D W/WO M-MODE REC F-UP/LMTD MA DOP ECHOCARD COLOR FLOW VELOCITY MAPPING MA DOP ECHOCARD PULSE WAVE W/SPECTRAL F-UP/LMTD STD Annika Kaba, HEALTH CARE RECRUITER-PARK WORKER SUPERVISOR [address] [facility] 2, [address] [address] Referral ID Status Reason Start Date Expiration Date Visits Requested Visits Authorized [id number] Pending Review Perform Procedure 3 03/29/2024 1 1 Reason Comments Care Coordination Transitional Care Management Reason Comments Post-op Follow-up Specialty Diagnoses / Procedures Referred By Jack lorenzo Referred To Contact Radiology Diagnoses Closed displaced intertrochanteric fracture of right femur, initial encounter (HCC) Procedures XR HIP RIGHT W/ PELVIS MIN 2-3 VIEWS [place] [address] S DIAGNOSTIC RADIOLOGY [address] [facility] [place] [address] Referral ID Status Reason Start Date Expiration Date Visits Re quested Visits Authorized [id number] Closed 06/07/2023 06/06/2024 1 1 Reason Comments Follow-up 2 months Specialty Diagnoses / Procedures Referred By Contac t Referred To Contact Cardiology Diagnoses Paroxysmal atrial fibrillation ([facility]/HCC) Procedures Follow Up In Cardiology Tahmina Annika K, HEALTH CARE RECRUITER-PARK WORKER SUPERVISOR [address] [facility] 2, [address] [place] [address] Referral ID Status Reason Start Date Expiration Date V isits Requested Visits Authorized [id number] Authorized 03/30/2023 03/29/2024 1 1 Reason Comments Joint Pain Specialty Diagnoses / Procedures Referred By Contac t Referred To Contact Radiology Diagnoses Closed displaced intertrochanteric fracture of right femur, initial encounter ([facility]) Procedures XR FEMUR RIGHT MINIMUM 2 VIEWS Kayden Lee PA-C [address] [place] [address] [facility] DIAGNOSTIC RADIOLOGY [address] [place] [address] [place] [address] Referral ID Status Reason Start Date Expiration Date Visits Re quested Visits Authorized [id number] Closed 09/06/2023 09/05/2024 1 1 Reason Comments Care Coordination Transitional Care Management Hospital follow-up Reason Comments Med Refill Reason Comments DM Foot Care Dm Nails Reason Comments Joint Pain Post-op Follow-up Specialty Diagnoses / Procedures Referred By Contac t Referred To Contact Radiology Diagnoses Closed displaced intertrochanteric fracture of right femur, initial encounter ([facility]) Procedures XR PELVIS SINGLE VIEW Kayden Lee PA-C [address] [place] [address] [facility] DIAGNOSTIC RADIOLOGY [address] [place] [address] [place] [address] Referral ID Status Reason Start Date Expiration Date Visits Re quested Visits Authorized [id number] Closed 07/05/2023 07/04/2024 1 1 Care Team (unrecognized sect ion and content) Team Status: Active Member Role Status Dates Barry Barber II MD Primary Care Provider Active Team Status: Inactive Member Role Status Dates Barry Barber II MD Primary Care Provider Active Start: November 08, 2023 End: November 11, 2023 Alexei Dahl PA-C Emergency Provider Active Start: November 08, 2023 End: November 11, 2023 Michelle Lock MD Admit Provider Active Start: November 08, 2023 End: November 11, 2023 Shalonda Pearson MD Other Provider Active Start: Pedro white 2023 End: November 11, 2023 Barbi Hernandez MD Attending Provider Active Star t: November 08, 2023 End: November 11, 2023 Team Status: Active Member Role Status Dates Barry Barber II MD Primary Care Provider Active Start: November 09, 2023 Alexei Dahl PA-C Emergency Provider Active Start: November 09, 2023 Michelle Lock MD Admit Provider Active Start: November 08 Gina Poole DO Other Provider Active Start: November 09, 2023 Shalonda Pearson MD Attending Provider, Other Provider Active Start: November 09, 2023 Team Status: Active Member Role Status Dates Barry Barber II MD Primary Care Provider Active Start: November 08, 2023 Alexei Dahl PA-C Emergency Provider Active Start: November 08, 2023 Michelle Lock MD Admit Provider, Attending Provider Active Start: November 08, 2023 Team Status: Inactive Member Role Status Dates Barry Barber II MD Primary Care Provider Active Venkatesh Trammell , DO Emergency Provider Active Gina Poole , DO Admit Provider, Attending Provider Active Hilary Antunez RN Other Provider Active Melody Canela , Other Provider Active Colin Levy MD Other Provider Active Jose Arriaga MD Other Provider Active Jeffry Hardy MD Other Provider Active Farhat Saleem MD Other Provider Active Annika Kaba APRN Other Provider Active Kellie Okeefe MD Other Provider Active Jack Cooley MD Other Provider Active Daniella Estrada MD Other Provider Active Sonia Urena , [facility]- Other Provider Active Tatiana Shafer MD Other Provider Active Team Status: Active Member Role Status Dates Barry Barber II MD Primary Care Provider Active Venkatesh Trammell , DO Emergency Provider Active Gina Poole , DO Admit Provider, Attending Provider Active Supervisor Television Chassis Repair Relationship Specialty Start Date End Date Barry Barber MD [address] [place] [address] PCP - General 12/28/22 Barry Barber MD [address] [place] [address] 12/28/22 Supervisor Television Chassis Repair Relationship Specialty Start Date End Date Barry Barber MD [address] [place] [address] PCP - General 12/28/22 Barry Barber MD [address] [place] [address] 12/28/22 Supervisor Television Chassis Repair Relationship Specialty Start Date End Date Barry Barber MD [address] [place] [address] PCP - General 12/28/22 Barry Barber MD [address] [place] [address] 12/28/22 Supervisor Television Chassis Repair Relationship Specialty Start Date End Date Barry Barber MD [address] [place] [address] PCP - ACO Reach 09/24/22 Brary Barber MD [address] [place] [address] PCP - General Internal Medicine 10/22/22Wednesday, NIKHIL Jeff [address] [place] [address] Licensed Practical Nurse Family Medicine 12/29/22 Beth Becca, SHEARING SUPERVISOR Mix Crusher Operator Family Medicine 12/29/22 Supervisor Television Chassis Repair Relationship Specialty Start Date End Date Barry Barber MD [address] [place] [address] PCP - General 12/28/22 Barry Barber MD [address] [place] [address] 12/28/22 Supervisor Television Chassis Repair Relationship Specialty Start Date End Date Colt Live DO [address] [place] [address] [place] [address] Physician Orthopaedic Surgery 07/03/23 Supervisor Television Chassis Repair Relationship Specialty Start Date End Date Colt Live DO [address] [place] [address] [place] [address] Physician Orthopaedic Surgery 07/03/23 Supervisor Television Chassis Repair Relationship Specialty Start Date End Date Colt Live DO [address] [place] [address] [place] [address] Physician Orthopaedic Surgery 07/03/23 Meng Leos DMD, MD [address] [place] [address] Physician Oral & Maxillofacial Surgery 09/04/23 Supervisor Television Chassis Repair Relationship Specialty Start Date End Date Colt Live DO [address] [place] [address] [place] [address] Physician Orthopaedic Surgery 07/03/23 Meng Leos DMD, MD [address] [place] [address] Physician Oral & Maxillofacial Surgery 09/04/23 Supervisor Television Chassis Repair Relationship Specialty Start Date End Date Colt Live DO [address] [place] [address] Physician Orthopaedic Surgery 07/03/23 Meng Leos DMD, MD [address] [place] [address] Physician Oral & Maxillofacial Surgery 09/04/23 Team Status: Inactive Member Role Status Dates Barry Barber II MD Primary Care Provider Active Start: December 09, 2023 End: December 09, 2023 Shalonda Pearson MD Attending Provider Active Star t: December 09, 2023 End: December 09, 2023 Supervisor Television Chassis Repair Relationship Specialty Start Date End Date Barry Barber MD [address] [place] [address] PCP - ACO Reach 09/24/22 Barry Barber MD [address] [place] [address] PCP - General Internal Medicine 10/22/22Wednesday, NIKHIL Jeff [address] [place] [address] Licensed Practical Nurse Family Medicine 12/29/22 Becca Campos LSW Mix Crusher Operator Family Medicine 12/29/22 Supervisor Television Chassis Repair Relationship Specialty Start Date End Date Barry Barber MD [address] [place] [address] PCP - ACO Reach 09/24/22 Barry Barber MD [address] [place] [address] PCP - General Internal Medicine 10/22/22Wednesday, NIKHIL Jeff [address] [place] [address] Licensed Practical Nurse Family Medicine 12/29/22 Becca Campos, NAY Mix Crusher Operator Family Medicine 12/29/22 Supervisor Television Chassis Repair Relationship Specialty Start Date End Date Barry Barber MD [address] [place] [address] PCP - ACO Reach 09/24/22 Barry Barber MD [address] [place] [address] PCP - General Internal Medicine 10/22/22Wednesday, NIKHIL Jeff [address] [place] [address] Licensed Practical Nurse Family Medicine 12/29/22 Becca Campos, SHEARING SUPERVISOR Mix Crusher Operator Family Medicine 12/29/22 Goals (unrecognized section and content) Goals may [...] BE BASED ON THE PRIMARY CLINICAL RECORDS. [employer] provides no warranty or guarantee of the accuracy or completeness of information in this document.
[2024-04-04 12:44] LABS: Hematocrit 31.7 % (36.0-48.0); Hemoglobin 9.9 g/dL (12.0-16.0); Mean Corpuscular HGB Conc 31.2 g/dL (29.9-35.2); Mean Corpuscular Hemoglobin 31.8 pg (26.7-34.0); Mean Corpuscular Volume 101.9 fL (81.0-99.0); Mean Platelet Volume 9.8 fL (9.5-13.5); Platelet Count 208 10^3/uL (150-450); Red Blood Count 3.11 10^6/uL (4.20-5.40); Red Cell Distribution Width 12.7 % (11.0-15.0); White Blood Count 8.7 10^3/uL (4.0-11.0)
[2024-04-04 13:06] LABS: Albumin Level 2.4 g/dL (3.4-5.0); Anion Gap 13.4; BUN Creatinine Ratio 15.3; Calcium 7.7 mg/dL (8.5-10.1); Carbon Dioxide 27.8 mmol/L (21.0-32.0); Chloride 107 mmol/L (98-107); Estimated GFR (African America 23 (>=60 mL/min/1.73m^2); Estimated GFR (Non-African Ame 19 (>=60 mL/min/1.73m^2); Glucose 102 mg/dL (74-106); Phosphorus 4.2 mg/dL (2.6-4.7); Potassium 4.2 mmol/L (3.5-5.1); Sodium 144 mmol/L (136-145)
[2024-04-04 13:35] LABS: Percent Iron Saturation 31.3 %
[2024-04-05 04:10] LABS: Vitamin B12 588 pg/mL (232-1245)
[2024-04-05 10:11] LABS: PTH, Intact 65 pg/mL (15-65)
== END 2024-04-04 12:03 | disposition home or self-care (01) ==
LOC: LAB 12:04
PROVIDERS: PCP Internal Medicine; Visit Provider Internal Medicine Nephrology
DX: R19.7 Diarrhea, unspecified (principal); N18.9 Chronic kidney disease, unspecified; D63.1 Anemia in chronic kidney disease; N18.31 Chronic kidney disease, stage 3a; N25.81 Secondary hyperparathyroidism of renal origin; Z22.1 Carrier of other intestinal infectious diseases
CPT/HCPCS: 36415; 80069; 82607; 82728; 82746; 83540; 83550; 83970; 85027

== ENCOUNTER 2024-06-02 13:16 | Outpatient (OUT) | payer MEDICARE, MEDICAID, SELFPAY ==
--- NOTE | 2024-06-02 13:21 | MM_ITS ---
Patient Name: MARTIN HAGEN MR#: [id number] : 1950 Exam Date: 06/02/2024 Ordering Doctor: DR BARRY RENDON M.D. RADIOLOGY REPORT PROCEDURE: MM SCREENING MAMMO BI COMPARISON: MM SCREENING MAMMO BI, 04/12/2023. INDICATIONS: Screening Calculator Name NCI Breast Cancer Risk Assessment Tool 5 Year Breast Cancer Risk 1.90% Lifetime Breast Cancer Risk 4.00% Personal Breast Cancer No Personal Ovarian Cancer No Treatments None Family Cancers None LOCATION: [facility] BREAST COMPOSITION: The breasts are almost entirely fatty. FINDINGS: DIAGNOSTIC CATEGORY 1--NEGATIVE. NO CHANGE FROM COMPARISON ASSESSMENT. Scattered benign-appearing calcifications are present. RIGHT BREAST: No significant suspicious finding. LEFT BREAST: No significant suspicious finding. RECOMMENDATIONS: ROUTINE MAMMOGRAM AND CLINICAL EVALUATION IN 12 MONTHS. PLEASE NOTE: A NORMAL MAMMOGRAM DOES NOT EXCLUDE THE POSSIBILITY OF BREAST CANCER. A CLINICALLY SUSPICIOUS PALPABLE LUMP SHOULD BE BIOPSIED. Dictated by: Eitan Blackwell MD on 06/02/2024 at 15:37 Approved by: Eitan Blackwell MD on 06/02/2024 at 15:47
== END 2024-06-02 13:17 | disposition home or self-care (01) ==
LOC: MAMMO 13:16
PROVIDERS: PCP Internal Medicine; Visit Provider Internal Medicine
DX: Z12.31 Encounter for screening mammogram for malignant neoplasm of breast (principal)
CPT/HCPCS: 77067

== ENCOUNTER 2024-06-05 11:09 | Outpatient (OUT) | payer MEDICARE, MEDICAID, SELFPAY ==
--- OUTSIDE RECORDS SUMMARY | 2024-06-05 11:15 | XMS_ITS | CCD ---
Author Organization [facility] Care Team Providers Care Hub Bander Name Role Phone JUANY BROWNYASIR Unavailable Unavailable KASANDRA BROWN Unavailable Unavailable SELF, REFERRED Unavailable Unavailable BARRY BARBER Unavailable Unavailable Smiley Davila Unavailable BARRY BARBER Primary Care Physician Ziggy Dean Unavailable JAG, DR RENETTA Perez Admitting Unavailable HEMDENAE, DR RENETTA Perez Attending Unavailable DR BARRY BARBER Primary [...] DEAN Attending Unavailable ZIGGY DEAN Admitting Unavailable HONadir ., DR ESCALERA Procedure Practitioner Unavail able [...] Attending Unavailable SALOMÓN, DR ASCENCIO Admitting Unavailable AGA RENEE Admitting Unavailable AGA RENEE Attending Unavailable DR BARRY BARBER Primary Care Unavailable AGA RENEE Consulting Unavailable XIMENA QUIGLEY Consulting Unavailable [...] Unavailable GINA BRITT Consulting Unavailable HEMMER, DR RENETTA Perez Admitting Unavailable HEMMER, DR RENETTA Perez Attending Unavailable BARBER, DR REDDY Primary Care Unavailable HEMMER, DR RENETTA Perez Consulting Unavailable SON ., DR JOSE [...] ., DR JOSE Berumen Consulting Unavailable ELTAHAWNadir, SILVA Attending Unavailable ELTAHAWY, SILVA Attending Unavailable [...] MD Kellie Okeefe Other Provider MD Yasir [facility] Naeb Other Provider MD Daniella Estrada Other Provider Ayanna [facility] Sonia Faustin Other Provider MD Tatiana [...] Barry Barber MD Primary Care Provider Wednesday ASSISTANT PRODUCT MANAGER, Randee Unavailable Becca Medina Unavailable ANNIKA MONTANEZ Referring Unavailable BARBER, BARRY B Primary Care Unavailable Colt Live DO Unavailable [phone] Viky Madera Unavailable Unavailable Giovanni BACON MD, Justin Unavailable [phone] KAYDEN LEE Referring Unavailable PROVIDER, UNKNOWN Admitting Unavailable PROVIDER, UNKNOWN Attending Unavailable KAYDEN LEE Referring Unavailable PROVIDER, UNKNOWN Admitting Unavailable PROVIDER, UNKNOWN Attending Unavailable KAYDEN LEE Referring Unavailable PROVIDER, UNKNOWN Attending Unavailable PROVIDER, UNKNOWN Admitting Unavailable PROVIDER, UNKNOWN Attending Unavailable LALI RIVERA Referring Unavailable JOSE CARBAJAL TJesse Admitting Unavailable LALI RIVERA Referring Unavailable JOSE CARBAJAL TJesse Admitting Unavailable PROVIDER, UNKNOWN Attending Unavailable LALI RIVERA Referring Unavailable REQUEST, IP PHYSICAL THERAPY SERVICE Consulting Unavailable JOSE CARBAJAL Attending Unavailable JOSE CARBAJAL Admitting Unavailable REQUEST, IP OCCUPATIONAL THERAPY SERVICE Consult ing Unavailable CONSULT, IP ORTHOPAEDICS GENERAL Consulting Unavailable CONSULT, IP SURGERY OMFS Consulting Unavail able CONSULT, IP GERIATRIC Consulting Unavailabl e REQUEST, IP PRODUCT LEAD SERVICE Consulting Unavaila ble PROVIDER, UNKNOWN Admitting Unavailable COLT LIVE Attending Unavailable PROVIDER, UNKNOWN Admitting Unavailable MENG LEOS Attending Unavailable PROVIDER, UNKNOWN Admitting Unavailable COLT LIVE Attending Unavailable PROVIDER, UNKNOWN Admitting Unavailable PROVIDER, UNKNOWN Attending Unavailable PROVIDER, UNKNOWN Admitting Unavailable MARTHA Barber Primary Care Provider [phone] ZOHRA Dahl Emergency Provider [phone] MD Michelle Lock Admit Provider MD Michelle Lock Attending Provider MD Shalonda Pearson Other Provider MD Barbi Hernandez Attending Provider Shalonda Pearson Consulting Unavailable Barbi Hernandez Attending Unavailable Michelle Lock Admitting Unava ilable Barry Barber Primary Care Unavailable SOM MADRIGAL Referring Unavailable JUSTICE BARRY B Primary Care Unavailable SOM MADRIGAL Attending Unavailable LALI RIVERA Referring Unavailable TOYA BARBEREL B Primary Care Unavailable TOYA BARBEREL B Referring Unavailable JUSTICE BARRY B Primary Care Unavailable Jacqui Michael Attending Unavailable Lue, Jacqui M. Referring Unavailable Jacqui Michael. Attending Unavailable Shaey Pittman Attending Unavailable Lani Wasserman Attending Unavailable Unavailable Primary Care Provider COLT Brar Attending Unavailable HEMRENETTA PHILIPPE Attending Unavailable BARRY BARBER Attending Unavailable BARRY BARBER Referring Unavailable BARRY BARBER Attending Unavailable RENETTA RM Attending Unavailable HEMRENETTA PHILIPPE Attending Unavailable HEMRENETTA PHILIPPE Attending Unavailable COLT THOMASON Attending Unavailable BARRY BARBER Attending Unavailable COLT THOMASON Attending Unavailable BARRY BARBER Attending Unavailable Allergies Allergy Classification Reported Allergen(s) Allergy Type Date of Onset Reaction(s) Facility GRAPEFRUIT EXTRACT (1 source) GRAPEFRUIT EXTRACT Drug Allergy 4 rash [facility] NSAIDs (1 source) Naproxen Drug Allergy 4 Unknown Reaction [facility] (20 sources) GRAPEFRUIT EXTRACT; Translations: [GRAPEFRUIT] Drug Allergy 3 rash, Unknown (qualifier value), Unknown [facility] (5 sources) virgin wool Propensity to adverse reactions 4 Unknown, Unknown Reaction [facility] (5 sources) pinneapple Propensity to adverse reactions 3 rash [facility] (15 sources) Bee/Wasp/Ant venom; Translations: [Bee Stings] Drug allergy Swelling of body region (finding) [facility] (20 sources) Naproxen; Translations: [naproxen] Drug Allergy 5 Other, Unknown [facility] (20 sources) Pineapple; Translations: [PINEAPPLE] Drug allergy 3 Unknown (qualifier value), Other, Unknown [facility] (1 source) Bee Sting Drug allergy Unknown [facility] Other (2 sources) Naproxen Drug Allergy 5 [facility] Repository (1 source) Naproxen; Translations: [NAPROXEN SODIUM] Drug Allergy 5 [facility] Repository (4 sources) BEE VENOM PROTEIN (HONEY BEE); Translations: [BEE VENOM PROTEIN (HONEY BEE)] Propensity to adverse reactions to drug (disorder) 3 Anaphylaxis [facility] Repository (1 source) WOOL; Translations: [WOOL] Propensity to adverse reactions to drug (disorder) 3 [facility] Repository (17 sources) bee venom; Translations: [BEE VENOM] Propensity to adverse reactions to drug 4 [facility] Lanolin; Translations: [LANOLIN] Drug Allergy 3 [facility] (17 sources) Extra Strength Grapefruit; Translations: [EXTRA STRENGTH GRAPEFRUIT] Propensity to adverse reactions to drug 3 Rash [facility] (20 sources) Honey bee venom Allergy to substance 3 [facility] Healthcare Work Phone: (20 sources) Other Allergy to substance 3 [facility] Healthcare (1 source) GRAPEFRUIT EXTRACT; Translations: [GRAPEFRUIT EXTRACT] Drug Allergy 3 [facility] (1 source) No Known Medication Allergies; Translations: [No Known Medication Allergies] Propensity to adverse reactions (disorder) [facility] Repository Medications Current Medications Medication Drug Class(es) [...] oral tablet (20 sources) Opioid Agonist Start: 04-05-2024 End: 05-02-2024 take 1 tablet by mouth every six hours for pain HYDROcodone-acetaminophen (Saranac) 5-325 MG tablet Indications: Psoriatic arthritis (CMS/HCC) Take 1 tablet by mouth every 6 (six) hours if needed for severe pain for up to 15 days 60 tablet 04/17/2024 05/02/2024 Active Start: 12-09-2023 take 1 tablet by marshal every six hours Hydrocodone-Acetaminophen Active 1 TAB P O Every 6 hours December 09, 2023 12:00am Start: 12-29-2022 End: 05-10-2024 acetaminophen-hydrocodone 32 5 mg-5 mg oral tablet Refill(s) 0 Start [...] 0 Refills: 0 Ordered: 28-Dec-2022 DO Active [id number] 200 actuat albuterol 0.09 mg/actuat metered dose [...] Refill(s) 0 Start Date: 05/11/17 Status: Ordered End: 05-10-2024 albuterol 2.5 mg /3 mL (0.08 3 %) nebulizer solution Take 3 mL (2.5 mg) by nebulization. 05/10/2024 Discontinued (Therapy completed) take 2 puff(s) by in halation every [...] November 18, 2022 12:00am Start: 08-16-2014 End: 06-08-2024 take 1 tablet by mouth three times daily as needed for anxiety ALPRAZolam (Xanax) 1 MG tablet Indications: Panic attacks (CMS/HCC) Take 1 tablet (1 mg) by mouth 3 (three) times a day as needed for anxiety 90 tablet 05/09/2024 06/08/2024 Active take 1 mg by mouth e very twenty-four hours as needed ALPRAZolam XR (Xanax XR) 1 mg 24 hr tablet Take 1 tablet (1 mg) by mouth once daily as needed. Do not crush, chew, or split. Active take 1 tablet by marshal every twelve hours ALPRAZolam 1 MG 1 tablet Orally Twice a day Active Amino Acids (20 sources) Start: 11-08-2023 take 1 capsule by mo [facility] every eight hours Amino Acids (Amino Acid) [...] 3:10pm Start: 11-18-2022 [facility] Apixaban (Eliquis) 5 mg tablet [...] by mouth in the morning. 0 Active ascorbic acid 113 mg / beta carotene 7160 mg / cuprous oxide 0.4 mg / dl-alpha tocopheryl acetate 100 unt / zinc oxide 17.4 mg oral tablet (2 sources) Vitamin C take 1 capsule by mouth once daily vitamins A,C,Y-uohd-sedgaw 2,148 mcg-113 mg-45 mg-17.4mg tablet Take 1 capsule by mouth once daily. Active atorvastatin 20 mg oral tablet (20 sources) HMG-CoA Reductase Inhibitor Start: 08-17-19 15 take 1 tablet by mouth once daily atorvastatin (Lipitor) 20 MG tablet Indications: Mixed hyperlipidemia (CMS/HCC) Take 1 tablet (20 mg) by mouth Daily 90 tablet 3 12/01/2023 Active benzonatate 100 mg oral capsule (4 sources) Non-narcotic Antitussive Start: 02-24-20 23 take 1 capsule by mouth three times [...] Start: 03-11-2021 take 4 tablets by mo [facility] once daily Rexulti 0.25 mg oral [...] Start: 05-17-2023 take 1 tablet by mouth in the morning bumetanide (Bumex) 2 MG tablet Indications: Acute combined systolic and diastolic CHF, NYHA class 3 (CMS/HCC) TAKE 1 TABLET BY MOUTH IN THE MORNING 90 tablet 3 05/01/2024 Active Start: 11-27-2022 End: 11-22-2023 bumetanide 1 mg Tab Refills( s) 0 Start Date: 12/29/22 Status: Ordered Start: 11-18-2022 End: 11-08-2023 take 1 mg by mouth once daily at bedtime Bumetanide Discontinued 1 MG PO Daily at bedtime November 18, 2022 12:00am November 08, 2023 1:40pm Start: 11-18-2022 End: 11-22-2023 take 1 tablet by mouth twice daily bumetanide (Bumex) 2 mg tablet Take 1 tablet (2 mg) by mouth 2 times daily (morning and late afternoon). 05/17/2023 Active Start: 11-18-2022 take 2 mg by [...] day Active calcitriol 0.0005 mg oral capsule (20 sources) Vitamin D3 Analog Start: 11-11-2023 take 0.5 ug by mouth once daily Calcitriol Active 0.5 MCG PO Daily 60 November 11, 2023 12:00am calcium acetate 667 mg oral capsule (20 sources) Start: 11-11-2023 take 1334 mg by mouth once at mealtime Calcium Acetate(Phosphat Bind) Active 1334 MG PO 3x/Day with meals 180 30 November 11, 2023 12:00am take 2 capsules by m outh three times daily at mealtime calcium acetate (Phoslo) 667 MG capsule TAKE 2 CAPSULES BY MOUTH THREE TIMES DAILY WITH MEALS FOR 30 DAYS Active calcium carbonate 500 mg chewable tablet (20 sources) End: 05-10-2024 calcium carbonate (Tums) 200 mg calcium chewable tablet Chew 1 tablet (500 mg) once daily. 05/10/2024 Discontinued (Therapy completed) calcium carbonat e (OS-PEDRO) 1250 (500 Ca) MG chewable tablet Take 500 mg by mouth 3 times a day. 0 Active calcium carbonate 600 mg / [...] (Calcium 600+D Plus Minerals) 600-400 MG-UNIT tablet (20 sources) Start: 11-06-2023 take 1 tablet by mouth once in the morning Calcium Carbonate-Vit D-Min (Calcium 600+D Plus Minerals) 600-400 MG-UNIT tablet Take 1 tablet by mouth in the morning and 1 tablet in the evening. 11/06/2023 Active calcium carbonate-vit D3-min 600 mg calcium- 400 unit tablet (2 sources) Start: 11-06-2023 take 1 tablet by mouth twice daily calcium carbonate-vit D3-min 600 mg calcium- 400 unit tablet Take 1 tablet by mouth twice a day. 11/06/2023 Active Calcium Carbonate-Vitamin D 600-5 MG-MCG (1 source) take 1 tablet by mouth twice daily Calcium Carbonate-Vitamin D 600-5 MG-MCG 1 tablet Orally Twice a day Active Calcium Citrate (20 sources) Start: 11-08-2023 take 2 tablets by [...] Start: 11-08-2023 take 2 tablets by mo [facility] three times daily Calcium Citrate Active 200 MG PO Three times daily November 08, 2023 12:00am 2 tabs TID Start: 11-08-2023 take 2 tablets by mo ut three times daily Calcium Citrate Active 0 PO Three times daily November 08, 2023 12:00am 2 tabs (666mg) TID cefdinir 300 mg oral capsule (3 sources) Cephalosporin Antibacterial Start: 04-17-2024 End: 04-24-2024 take 1 capsule by mouth in the morning cefdinir (Omnicef) 300 MG capsule Indications: Acute bronchitis, unspecified organism Take 1 capsule (300 mg) by mouth in the morning and 1 capsule (300 mg) before bedtime. Do all this for 7 days. 14 capsule 04/17/2024 04/24/2024 Active cholecalciferol 0.025 mg oral capsule (20 sources) [...] day(s), # 14 tab(s), Refills(s) 0, Pharmacy: [id number], 153, cm, 02/12/23 11:42:00 EDT, Height/Length Dosing, 68.3, kg, 02/03/23 9:09:00 EDT, Weight Dosing Start Date: 02/22/23 Stop Date: 03/01/23 Status: Ordered Start: 02-03-2023 End: 02-06-2023 take 1 tablet by mouth twice daily Cipro 500 mg Tab 500 mg = 1 tab(s), Oral, BID, X 3 day(s), # 6 tab(s), Refills(s) 0, Pharmacy: [id number], 153, cm, 02/03/23 9:09:00 EDT, Height/Length Dosing, 68.3, kg, 02/03/23 9:09:00 EDT, Weight Dosing Start Date: 02/03/23 Stop Date: 02/06/23 Status: Ordered Continuous Blood Gluc Receiv er (FreeStyle Lilliam 2 Richardson) device (20 sources) Start: 05-17-2023 End: 05-16-2024 Continuous Blood Gluc Receiv er (FreeStyle Lilliam 2 Richardson) device Indications: Diabetic peripheral neuropathy associated with type 2 diabetes mellitus (CMS/HCC) 1 each in the morning and 1 each at noon and 1 each in the evening and 1 each before bedtime. 1 each 05/17/2023 05/16/2024 Active Start: 05-17-2023 End: 05-16-2024 Continuous Blood Gluc Receiv er (FreeStyle Lilliam 2 Richardson) device Indications: Diabetic peripheral neuropathy associated with type 2 diabetes mellitus (CMS/HCC) 1 each in the morning and 1 each at noon and 1 each in the evening and 1 each before bedtime. 1 each 0 05/17/2023 05/16/2024 Active Start: 04-02-2023 End: 04-01-2024 Continuous Blood Gluc Receiv er (FreeStyle Lilliam 2 Richardson) device Indications: Diabetic peripheral neuropathy associated with type 2 diabetes mellitus (CMS/HCC) 1 Product yearly. 1 each 0 04/02/2023 04/01/2024 Active Continuous Blood Gluc Sensor (FreeStyle Lilliam 2 Sensor) misc (20 sources) Start: 05-17-2023 Continuous [facility]o [facility]am [facility] Ind[facility]: Diabetic peripheral neuropathy associated with type 2 diabetes mellitus (CMS/HCC) 1 each every 14 (fourteen) days 6 each 3 05/17/2023 Active Start: 05-17-2023 End: 05-16-2024 Continuous Blood Gluc Sensor (FreeStyle Lilliam 2 Sensor) [facility] Indications: Diabetic peripheral neuropathy associated with type 2 diabetes mellitus (CMS/HCC) 1 each every 14 (fourteen) days 6 each 3 05/17/2023 05/16/2024 Active Start: 04-02-2023 End: 04-01-2024 Continuous Blood Gluc Sensor (FreeStyle Lilliam 2 Sensor) [facility] Indications: Diabetic peripheral neuropathy associated with type 2 diabetes mellitus (CMS/HCC) Inject 1 application under the skin every 14 (fourteen) days. 6 each 3 04/02/2023 04/01/2024 Active cyclobenzaprine hydrochloride 10 mg oral tablet (20 sources) Muscle Relaxant Start: 11-18-2022 End: 05-10-2024 cyclobenzaprine 10 mg Tab Refills(s) 0 Start [...] MORNING 30 tablet 3 03/13/2024 Active Start: 01-11-2024 take 1 tablet by marshal th in the morning Farxiga 10 MG Indications: Diabetic mononeuropathy associated with type 2 diabetes mellitus (HCC) (CMS/HCC) TAKE 1 TABLET BY MOUTH IN THE MORNING 30 tablet 01/11/2024 Active Start: 2023 take 1 tablet by marshal th in the morning Farxiga 10 MG Indications: Diabetic mononeuropathy associated with type 2 diabetes mellitus (HCC) (CMS/HCC) TAKE 1 TABLET BY MOUTH IN THE MORNING 30 tablet 2023 Active Start: 10-27-2022 End: 11-25-2023 take 1 tablet by mouth in the morning Farxiga 10 MG Indications: Diabetic mononeuropathy associated with type 2 diabetes mellitus (HCC) (CMS/HCC) TAKE 1 TABLET BY MOUTH IN THE MORNING 30 tablet 02/09/2024 Active dexamethasone 1 mg oral tablet (3 sources) Corticosteroid Start: 06-10-2022 take 1 tablet by mouth once dexamethasone 1 mg oral tablet 1 mg = 1 tab(s), Oral, Once, take at 11pm. complete cortisol level at 8am., # 1 tab(s), Refills(s) 0, Pharmacy: [id number], 154, cm, 06/10/22 10:26:00 EST, Height/Length Dosing, 86, kg, 06/10/22 10:26:00 EST, Weight Dosing Start Date: 06/10/22 Status: Ordered diphenhydrAMINE hydrochloride 25 mg oral capsule (20 sources) Histamine-1 Receptor Antagonist diphenhydrAMINE (BENADryl) 25 [...] Orally Active estradiol 0.001 mg/mg topical gel (20 sources) Estrogen Start: 11-08-2023 Estradiol (Divigel) 0.25 mg/0.25 gram (0.1 %) gel in packet Active 0.25 MG TRANSDERML .2times week November 08, 2023 12:00am Start: 05-02-2023 estradiol (Est race) 0.01 % (0.1 mg/gram) vaginal cream 2 times a week. 05/02/2023 Active Start: 02-04-2023 estradiol (Est race) [...] x 1 month, then 2x/week for maintainence, [id number], 153, cm, 02/03/23 9:09:00 EDT, Height/Length Dosing, 68.3, kg, 02/03/23 9:09:00 EDT, Weight Dosing Start Date: 02/03/23 Status: Ordered famotidine 20 mg oral tablet (20 sources) Histamine-2 Receptor Antagonist Start: 11-11-2023 take 1 tablet by mouth once daily Famotidine (Pepcid) 20 mg tablet Active 20 MG PO Daily November 11, 2023 12:00am ferrous sulfate 325 mg oral tablet (20 sources) Start: 10-28-2023 End: 05-10-2024 SV Iron 325 (65 Fe) MG tablet 10/28/2023 Active Start: 10-28-2023 SV Iron 325 (6 5 [...] Start: 08-16-2014 take 1 capsule by mouth in the morning FLUoxetine (PROzac) 40 MG capsule Indications: Depressive disorder (CMS/HCC) Take 1 capsule (40 mg) by mouth in the morning. 100 capsule 3 09/28/2023 Active take 1 capsule by [facility] every twenty-four hours FLUoxetine HCl 20 MG 1 capsule Orally Once a day Active 60 actuat fluticasone propionate 0.25 mg/actuat / salmeterol 0.05 mg/actuat dry powder inhaler (20 sources) Corticosteroid, beta2-Adrenergic Agonist Start: 05-16-2024 take 1 dose by mouth every twelve hours Fluticasone-Salmeterol 250-50 MCG/ACT aerosol powder Indications: Panlobular emphysema (CMS/HCC) INHALE 1 DOSE BY MOUTH EVERY 12 HOURS 60 each 05/16/2024 Active Start: 11-18-2023 take 1 puff(s) by in halation once [...] or wheezing Start Date: 05/11/17 Status: Ordered End: 05-10-2024 take 1 puff(s) by mouth twice daily fluticasone propion-salmeteroL (Advair Diskus) 250-50 mcg/dose diskus inhaler Inhale 1 puff 2 times a day. Rinse mouth with water after use to reduce aftertaste and incidence of candidiasis. Do not swallow. 05/10/2024 Discontinued (Therapy completed) take 1 puff(s) by mo uth twice daily fluticasone propion-salmeteroL (Advair Diskus) 250-50 mcg/dose diskus inhaler Inhale 1 puff 2 times a day. Rinse mouth with water after use to reduce aftertaste and incidence of candidiasis. Do not swallow. Active take 2 puff(s) by mo uth four times daily fluticasone-salmeterol (ADVAIR DISKUS) 250-50 MCG/ACT inhaler Inhale 2 Puffs by mouth 4 times daily. 0 Active take 1 puff(s) by in halation once Fluticasone-Salmeterol (Advair Diskus) 250-50 MCG/ACT aerosol powder Inhale 1 puff every 12 (twelve) hours. 0 Active take 1 puff(s) by mo uth twice daily fluticasone propion-salmeteroL (Advair Diskus) 250-50 [...] Ordered hyoscyamine sulfate 0.125 mg sublingual tablet (20 sources) Start: 03-29-2024 take 1 tablet by mouth every six hours hyoscyamine (Levsin) 0.125 MG SL tablet Indications: Loose stools Take 1 tablet (0.125 mg) by mouth every 6 (six) hours if needed for cramping 60 tablet 2 03/29/2024 Active Start: 12-01-2023 take 1 tablet by marshal th every six hours hyoscyamine (Levsin) 0.125 MG [...] Active isopropyl alcohol 0.7 ml/ml medicated pad (20 sources) Start: 06-12-2022 Alcohol Swabs (B-D SINGLE USE SWABS REGULAR) pads Apply 1 Swab topically 1 (one) time each day. 06/12/2022 Active ammonium lactate 120 mg/ml topical cream (20 sources) Start: 01-25-2024 ammonium lactate (Amlactin) 12 % cream Indications: Xerosis cutis APPLY IF NEEDED TWICE DAILY TO DRY SKIN ON FEET 280 g 01/25/2024 Active Start: 11-18-2022 End: 01-29-2024 ammonium lactate (Lac-Hydrin ) 12 % lotion Indications: Xerosis cutis Apply 1 application topically if needed for dry skin Apply to feet twice daily 350 mL 12/30/2023 01/25/2024 Discontinued Lactobacillus (16 sources) take 1 tablet by mouth every eight hours LACTOBACILLUS ORAL Take 1 Tablet by mouth every 8 hours. 0 Active Lactobacillus acidophilus (3 sources) Start: 11-08-2023 lactobacillus acidophilus 0.05 mg / lactobacillus bulgaricus 0.05 mg oral tablet (1 source) Lactobacillus Pr obiotic - as directed Orally TWICE A DAY Active Lactobacillus pack (20 sources) take 1 tablet by mouth every [...] 1 tablet by mouth twice daily at bedtime levETIRAcetam (Keppra) 250 MG tablet Indications: Seizure disorder (CMS/HCC) TAKE 1 TABLET BY MOUTH TWICE DAILY (IN THE MORNING AND BEFORE BEDTIME) 180 tablet 03/27/2024 Active take 1 tablet by marshal th twice daily levETIRAcetam (Keppra) 500 mg tablet Take 1 tablet (500 mg) by mouth 2 times a day. Active lisinopril 20 mg oral tablet (19 [...] QIDACHS, # 1 tab(s), Refills(s) 0, Pharmacy: [id number], 154, cm, 01/25/20 14:09:00 EDT, Height/Length Dosing, 88.5, kg, 01/25/20 14:09:00 EDT, Weight Dosing Start Date: 01/25/20 Status: Ordered metOLazone 2.5 mg oral tablet (20 sources) Thiazide-like Diuretic Start: 11-20-2022 End: 05-10-2024 take 1 tablet by mouth once daily [...] mg 2 times daily. 0 04/27/2023 Active metroNIDAZOLE 500 mg oral tablet (5 sources) Nitroimidazole Antimicrobial Start: 01-17-2024 End: 01-31-2024 take 1 tablet by mouth in the morning metroNIDAZOLE (Flagyl) 500 MG tablet Indications: Clostridium difficile colitis Take 1 tablet (500 mg) by mouth in the morning and 1 tablet (500 mg) before bedtime. Do all this for 14 days. 28 tablet 01/17/2024 01/31/2024 Active Midol Extended Relief (8 sources) Start: 08-02-2018 take 220 mg by mouth every eight hours as needed for pain Midol Extended Relief 220 mg, Oral, q8hr, PRN as needed for pain, Refills(s) 0 Start Date: 08/02/18 Status: Ordered 24 hr mirabegron 50 mg extended release oral tablet (20 sources) beta3-Adrenergic Agonist Start: 04-28-2023 End: 11-11-2023 [...] 0 Active Multiple Vitamins-Minerals (EYE VITAMINS PO) (20 sources) take 1 tablet by mouth once daily Multiple Vitamins-Minerals (EYE VITAMINS PO) Take 1 tablet by mouth 1 (one) time each day Active Multivitamin preparation (3 sources) Start: 11-08-2023 take 1 tablet by mouth once daily Multivitamin Active 1 TAB PO Daily November 08, 2023 12:00am multivitamin tablet (1 source) take 1 tablet by mouth once daily multivitamin tablet Take 1 tablet by mouth once daily. Active naloxone hydrochloride 40 mg/ml nasal spray (16 sources) Opioid Antagonist Start: 05-18-2023 naloxone 4 mg/0.1 mL nasal liquid Use 1 [place] in one nostril (alternate sides) as needed for Drug Overdose for up to 1 dose. Every 2-3 mins. until help arrives. 1 Each 0 05/18/2023 Active omeprazole 40 mg delayed release oral capsule (20 sources) Proton Pump Inhibitor Start: 12-29-2022 End: 05-10-2024 take 1 capsule by mouth twice daily omeprazole (PriLOSEC) [address] capsule Take 1 capsule (40 mg) by mouth 2 times a day. 06/09/2023 05/10/2024 Discontinued (Therapy completed) ondansetron 4 mg oral tablet (20 sources) Serotonin-3 Receptor Antagonist Start: 04-24-2024 take 1 tablet by mouth every six hours as needed for nausea ondansetron (Zofran) 4 MG tablet Indications: Gastroesophageal reflux disease without esophagitis TAKE 1 TABLET BY MOUTH EVERY 6 HOURS NEEDED FOR NAUSEA FOR VOMITING 120 tablet 04/24/2024 Active Start: 11-08-2023 End: 11-11-2023 take 4 mg [...] of right femur, initial encounter ([facility]) Take 1 Tablet by mouth every 6 hours as needed for up to 2 days. 8 Tablet 0 05/18/2023 05/20/2023 Active Oxygen (20 sources) oxygen (O2) gas Inhale 3 L/min continuously. via nasal canula Active oxygen (O2) gas Inhale 3 L/min continuously. via nasal canula 0 Active Oxygen 3-4 LPM Q uantity: 0 Refills: 0 Ordered: 28-Dec-2022 DO Active oxygen (O2) gas therapy (6 sources) oxygen (O2) gas therapy Inhale 1 each continuously. Active oxygen (O2) gas therapy Inhale 1 each continuously. 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 180 tablet 3 01/26/2024 01/25/2025 Active Start: 12-09-2023 take 40 mg by mouth twice daily Pantoprazole Active 40 MG PO Twice daily December 09, 2023 12:00am Start: 11-08-2023 End: 11-11-2023 take 40 mg by mouth twice daily Pantoprazole Discontinued 40 MG PO Twice daily November 08, 2023 12:00am November 11, 2023 5:21pm polyethylene glycol 3350 37147 mg powder for oral solution (4 sources) Osmotic Laxative Start: 08-08-2020 Miralax 3350 17 gram packet 17 gram, Oral, Daily, # 255 gram, Refills(s) 3, Pharmacy: [facility], 154, cm, 08/08/20 12:03:00 EDT, Height/Length Dosing, 88.1, kg, 08/08/20 12:03:00 EDT, Weight Dosing Start Date: 08/08/20 Status: Ordered polyethylene glycol 3350 852471 mg / potassium chloride 1480 mg / sodium bicarbonate 5720 mg / sodium chloride 58294 mg powder for oral solution (2 sources) Osmotic Laxative Start: 12-31-2021 NuLYTELY Crane oral powder for reconstitution See Instructions, 1 EA, Refill(s) 0, Prior to colonoscopy., [facility]29, 154, cm, 12/31/21 14:58:00 EDT, Height/Length Dosing, 79.4, kg, 12/31/21 14:58:00 EDT, Weight Dosing Start Date: 12/31/21 Status: Ordered polymyxin b 98276 unt/ml / trimethoprim 1 mg/ml ophthalmic solution (1 source) Dihydrofolate Reductase Inhibitor Antibacterial, Polymyxin-class Antibacterial Start: 12-13-2021 take 1 drop(s) into the eye(s) four times daily Polymyxin B-Trimethoprim 12470-7.1 UNIT/ML 1 drop into affected eye Ophthalmic [...] mg oral tablet (20 sources) Phenothiazine Start: 05-23-2024 take 1 tablet by mouth every six hours as needed for nausea promethazine (Phenergan) 25 MG tablet Indications: Gastroesophageal reflux disease without esophagitis TAKE 1 TABLET BY MOUTH EVERY 6 HOURS NEEDED FOR NAUSEA FOR VOMITING 120 tablet 05/23/2024 Active Start: 05-11-2017 take 1 tablet by marshal th every six hours as needed for nausea promethazine (Phenergan) 25 MG tablet Indications: Gastroesophageal reflux disease without esophagitis TAKE 1 TABLET BY MOUTH EVERY 6 HOURS NEEDED FOR NAUSEA FOR VOMITING 120 tablet 03/15/2024 Active psyllium 525 mg oral capsule (3 sources) Start: 12-31-2021 End: 03-31-2022 take 1 capsule by mouth once daily Metamucil 525 mg oral capsule 1 cap, Oral, Daily, X 90 day(s), # 90 cap(s), Refills(s) 0, Pharmacy: [facility], 154, cm, 12/31/21 14:58:00 EDT, Height/Length Dosing, 79.4, kg, 12/31/21 14:58:00 EDT, Weight Dosing Start Date: 12/31/21 Stop Date: 03/31/22 Status: Ordered sennosides, nursing home 8.6 mg oral tablet (16 sources) Start: 05-18-2023 take 1 tablet by mouth once daily as needed for constipation senna (SENOKOT) 8.6 MG tablet Take 1 Tablet by mouth daily as needed for Constipation. 30 Tablet 0 05/18/2023 Active tiZANidine 4 mg oral tablet (20 sources) Central alpha-2 Adrenergic Agonist Start: 03-29-2024 take 1 tablet by mouth every eight hours as needed for muscle spasms and muscle spasms tiZANidine (Zanaflex) 4 MG tablet Indications: Muscle spasm TAKE 1 TABLET BY MOUTH EVERY 8 HOURS NEEDED FOR MUSCLE SPASM 90 tablet 03/29/2024 Active Start: 07-06-2023 take 1 tablet by marshal th every eight hours as needed for muscle [...] pharmacy (Rx) Start Date: 10/30/20 Status: Ordered 1 ml denosumab 60 mg/ml prefilled syringe (20 sources) RANK Ligand Inhibitor Start: 04-17-2024 End: 04-17-2024 denosumab (Prolia) injection 60 mg Start: 04-17-2024 End: 04-17-2024 inject 60 mg by subcutaneous injection once 60 mg, Subcutaneous, Once, On Wed04/17/24 at 1400, For 1 dose Start: 04-17-2024 End: 04-17-2024 denosumab (Prolia) injection 60 mg Start: 04-17-2024 End: 04-17-2024 inject 60 mg by subcutaneous injection once 60 mg, Subcutaneous, Once, On Wed04/17/24 at 1400, For 1 dose denosumab (Proli a) 60 MG/ML solution prefilled syringe Inject 60 mg under the skin every 6 (six) months. Active levoFLOXacin 750 mg oral tablet (3 sources) Quinolone Antimicrobial Start: 11-08-2023 End: 11-11-2023 take 750 mg by mouth once daily Levofloxacin Discontinued 750 MG PO Daily November 08, 2023 12:00am November 11, 2023 4:50pm triamcinolone acetonide 40 mg/ml injectable suspension (2 sources) Corticosteroid Start: 12-13-2021 Kenalog-40 Dec, 40 mg vancomycin 250 mg oral capsule (9 sources) Glycopeptide Antibacterial Start: 01-12-2024 End: 01-17-2024 vancomycin (Vancocin) 250 MG capsule Indications: Clostridium difficile infection Take 1 capsule (250 mg) by mouth in the morning and 1 capsule (250 mg) at noon and 1 capsule (250 mg) in the evening and 1 capsule (250 mg) before bedtime. 56 capsule 01/12/2024 01/17/2024 Discontinued Start: 10-31-2023 End: 12-09-2023 take 250 mg by mouth three times daily Vancomycin Discontinued 250 MG PO Three times daily November 08, 2023 12:00am December 09, 2023 3:11pm Problems Active Problems Problem Classification Problem Date Documented Date Episodic/Chronic Acquired foot deformities (20 sources) Acquired hallux valgus; Translations: [Hallux valgus (acquired), unspecified foot] Onset: 1 05-18-2023 Chronic Acute bronchitis (2 sources) Acute bronchitis; Translations: [Acute bronchitis, unspecified] 04-17-2024 Episodic Allergic reactions (1 source) Allergy status [...] Onset: 8 Chronic Deficiency and other anemia (20 sources) Anemia of renal disease; Translations: [Anemia [...] Chronic Immunizations and screening for infectious disease (4 sources) Carrier of other intestinal infectious diseases; [...] episode, unspecified] Onset: 8 11-07-2019 Chronic Mycoses (6 sources) Pain in toe; Translations: [Tinea unguium] 03-03-2024 Episodic Nutritional deficiencies (20 sources) Moderate protein-calorie malnutrition; Translations: [Deficiency of macronutrients] Onset: 3 05-18-2023 Chronic Osteoarthritis (20 sources) Arthritis; Translations: [Unspecified osteoarthritis, unspecified site] Onset: 5 11-07-2019 Chronic Osteoporosis (20 sources) Osteoporosis; Translations: [Age-related osteoporosis without current pathological fracture] Onset: 7 05-18-2023 Chronic Other aftercare (2 sources) Other senior care (current) drug therapy; Translations: [OTHER [facility] (CURRENT) DRUG THERAPY] Onset: 8 Episodic Other aftercare (1 source) extermination supervisor (current) use of anticoagulants; Translations: [[facility] CURRNT USE ANTICOAGULANTS] Onset: 3 Episodic Other aftercare (1 source) extermination supervisor (current) use of inhaled steroids; Translations: [[facility] USE OF INHALED STEROIDS] Onset: 3 Episodic Other and ill-defined heart disease (14 sources) Heart disease 09-10-2020 Chronic Other and ill-defined heart disease (20 sources) Diastolic dysfunction; Translations: [Other ill-defined heart diseases] Onset: 4 11-03-2023 Chronic Other and ill-defined heart disease (20 sources) Left ventricular hypertrophy; Translations: [Cardiomegaly] Onset: [...] Chronic Other diseases of kidney and ureters (20 sources) Hyperparathyroidism due to renal insufficiency; Translations: [...] abnormalities] Onset: 2 Episodic Other gastrointestinal disorders (4 sources) Diarrhea; Translations: [Diarrhea, unspecified] Onset: 2 Episodic Other gastrointestinal disorders (10 sources) Adrenal mass 06-10-2022 Episodic Other gastrointestinal disorders (1 source) Diarrhea, [...] nutritional; endocrine; and metabolic disorders (20 sources) Hypomagnesemia; Translations: [Hypomagnesemia] Onset: 4 11-08-2023 Chronic Other nutritional; endocrine; and metabolic disorders (20 sources) Hypocalcemia; Translations: [Hypocalcemia] Onset: 4 11-08-2023 Chronic Other nutritional; endocrine; and metabolic disorders (3 sources) Morbid obesity Onset: 2 05-18-2023 Chronic Other nutritional; endocrine; and metabolic disorders (3 sources) Obesity, unspecified Onset: 3 05-18-2023 Chronic Other nutritional; endocrine; and metabolic disorders (6 sources) Overweight in adulthood with body mass index of 25 or more but less than 30; Translations: [Overweight] Onset: 4 07-26-2023 Episodic Other skin disorders (7 sources) Asteatosis cutis; Translations: [Xerosis cutis] 03-03-2024 Episodic Peripheral and visceral atherosclerosis (20 sources) Atherosclerosis of aorta; Translations: [Peripheral vascular [...] 3 UNSP] Onset: 3 Unclassified (1 source) 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 INJECT NONINSULN ANTIDIAB; Translations: [[facility] INJECT NONINSULN ANTIDIAB] Onset: 3 Unclassified (1 source) CONTACT W/AND (SUSP) EXPOS COVID-19; Translations: [CONTACT W/AND (SUSP) EXPOS COVID-19] Onset: 3 Unclassified (1 source) COUGH, UNSPECIFIED; Translations: [COUGH, UNSPECIFIED] Onset: 2 Viral infection (1 source) COVID-19; Translations: [COVID-19] Onset: Past or Other Problems Problem Classification Problem Date Documented Date Episodic/Chronic Abdominal hernia (20 sources) Incisional hernia without obstruction or gangrene; Translations: [Incisional hernia] Onset: 018 05-18-2023 Episodic Abdominal pain (20 sources) Lower abdominal pain; Translations: [Lower abdominal pain, unspecified] Onset: Episodic Acquired foot deformities (20 sources) Right foot drop; Translations: [Foot drop, right foot] Onset: 05-18-2023 Episodic Acute and unspecified renal failure (20 sources) Acute kidney failure, unspecified; Translations: [Acute renal failure syndrome] Onset: Resolve d: 11-08-2023 Episodic Acute posthemorrhagic anemia (20 sources) Acute posthemorrhagic anemia; Translations: [Acute posthemorrhagic anemia] Onset: 05-18-2023 Episodic Bacterial infection; unspecified site (20 sources) Other specified bacterial agents as the [...] UNSPECIFIED] Onset: Episodic Fluid and electrolyte disorders (20 sources) Hyperosmolality and hypernatremia; Translations: [Hypokalemia] Onset: 023 11-03-2023 Episodic Fracture of neck of femur (hip) (20 sources) Closed intertrochanteric fracture; Translations: [Displaced intertrochanteric fracture of right femur, initial encounter for closed fracture] Onset: 01-04-0305-18-2023 Episodic Genitourinary symptoms and ill-defined conditions (20 sources) Retention of urine; Translations: [Retention of urine, unspecified] Onset: Episodic Heart valve disorders (20 sources) Systolic murmur; Translations: [Cardiac murmur, unspecified] Onset: 05-18-2023 Episodic Hemorrhoids (20 sources) External hemorrhoids; Translations: [Residual hemorrhoidal skin tags] Onset: 05-18-2023 Episodic Intestinal infection (20 sources) Enterocolitis due to Clostridium difficile, not specified as recurrent; Translations: [Clostridium difficile colitis] Onset: 05-14-2023 Episodic Joint disorders and dislocations; trauma-related (16 sources) Dislocation of temporomandibular joint; Translations: [Dislocation of jaw, unspecified side, initial encounter] Onset: 05-18-2023 Episodic Malaise and fatigue (3 sources) Other fatigue; Translations: [Weakness] Onset: Episodic Mood disorders (6 sources) Mood disorders; Translations: [DEPRESSION UNSPECIFIED] Onset: 04-23-2023 Other aftercare (1 source) [facility] (current) use of aspirin; Translations: [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 CURRENT USE OF ASPIRIN] Onset: Episodic Other aftercare (2 sources) [facility] (current) use of insulin; Translations: [[facility] CURRENT USE OF INSULIN] Onset: Episodic Other aftercare (20 sources) Drug therapy finding; Translations: [Long-term (current) use of anticoagulants] Onset: 03-30-2023 Episodic Other aftercare (20 sources) Long-term current use of anticoagulant; Translations: [extermination supervisor (current) use of anticoagulants] Onset: 07-06-2023 Episodic [...] Episodic Other connective tissue disease (20 sources) Muscle weakness; Translations: [Muscle weakness (generalized)] Onset: 07-06-2023 Episodic Other connective tissue disease (3 sources) Adhesive capsulitis of shoulder Onset: 05-18-2023 Episodic Other connective tissue disease (3 sources) Spasm of muscle Onset: 05-18-2023 Episodic Other connective tissue disease (2 sources) Pain of toes of bilateral feet; Translations: [Pain in right toe(s)] 12-27-2023 Episodic Other diseases of bladder and urethra (3 sources) Other specified disorders of urethra Onset: 05-18-2023 Episodic Other diseases of kidney and ureters (3 sources) Unspecified disorder of kidney and ureter Onset: 05-18-2023 Episodic Other diseases of veins [...] gastrointestinal disorders (3 sources) Abnormal feces Onset: 05-18-2023 Episodic Other hematologic conditions (1 source) Other specified abnormalities of plasma proteins; Translations: [OTH SPEC ABNORM PLASMA PROTEINS] Onset: Episodic Other infections; including parasitic (20 sources) H/O: infectious disease; Translations: [Personal history [...] Onset: 05-18-2023 Episodic Other lower respiratory disease (20 sources) Chronic cough; Translations: [Chronic cough] Onset: 11-10-2022 Episodic Other lower respiratory disease (3 sources) Cough Onset: 05-18-2023 Episodic Other nervous system disorders (13 sources) Acute pain due to injury; Translations: [Acute pain due to trauma] Onset: 05-18-2023 Episodic Other nervous system disorders (13 sources) Acute postoperative pain; Translations: [Other acute postprocedural pain] Onset: 05-18-2023 Episodic Other nervous system disorders (20 sources) Abnormal gait; Translations: [Unspecified abnormalities of gait and mobility] Onset: 05-18-2023 Episodic Other nervous system disorders (1 source) Unspecified abnormalities of gait and mobility; Translations: [Unspecified abnormalities of gait and mobility] Onset: Episodic Other nervous system disorders (20 sources) Symbolic dysfunction; Translations: [Other symbolic dysfunctions] [...] Resolve d: 05-18-2023 Episodic Residual codes; unclassified (20 sources) Insomnia; Translations: [Insomnia, unspecified] Onset: 07-06-2023 [...] with and (suspected) exposure to COVID19] Unclassified (6 sources) Onset: Resolve d: 03-30-2023 Urinary tract infections (20 sources) Acute cystitis; Translations: [Postinfective urethral stricture of female] Onset: 06-10-2022 Episodic Results Test Name Value Interpretation Reference Range Facility MG Breast - bilateral Screen ing 06-02-2024 [place] [address] Mammography Report Signed Patient: KATE HAGEN MR#: [id number] : 1950 Acct:[id number] Age/Sex: 73 / F ADM Date: 06/02/24 Loc: MAMMO Attending Dr: BARRY BARBER Ordering Physician: BARRY BARBER Results: Date of Service: 06/02/24 Follow Up: Procedure(s): MM screening mammo BI Accession Number(s): [id number] cc: BARRY BARBER Patient Name: KATE HAGEN MR#: [id number] : 1950 Exam Date: 06/02/2024 Ordering Doctor: DR BARRY BARBER M.D. RADIOLOGY REPORT PROCEDURE: MM SCREENING MAMMO BI COMPARISON: MM SCREENING MAMMO BI, 04/12/2023. INDICATIONS: Screening Calculator Name NCI Breast Cancer Risk Assessment Tool 5 Year Breast Cancer Risk 1.90% Lifetime Breast Cancer Risk 4.00% Personal Breast Cancer No Personal Ovarian Cancer No Treatments None Family Cancers None LOCATION: [facility] BREAST COMPOSITION: The breasts are almost entirely fatty. FINDINGS: DIAGNOSTIC CATEGORY 1--NEGATIVE. NO CHANGE FROM COMPARISON ASSESSMENT. Scattered benign-appearing calcifications are present. RIGHT BREAST: No significant suspicious finding. LEFT BREAST: No significant suspicious finding. RECOMMENDATIONS: ROUTINE MAMMOGRAM AND CLINICAL EVALUATION IN 12 MONTHS. PLEASE NOTE: A NORMAL MAMMOGRAM DOES NOT EXCLUDE THE POSSIBILITY OF BREAST CANCER. A CLINICALLY SUSPICIOUS PALPABLE LUMP SHOULD BE BIOPSIED. Dictated by: Lyn Blackwell MD on 06/02/2024 at 15:37 Approved by: Lyn Blackwell MD on 06/02/2024 at 15:47 Dictated By: Lyn Blackwell M.D. Signed By: 06/02/24 1548 DD/ 1547 TD/TT: Foley Artist: [facility] Radiology, Radiologi MD flip - 06/02/2024 [place] [address] Mammography Report Signed Patient: KATE HAGEN MR#: [id number] : 1950 Acct:[id number] Age/Sex: 73 / F ADM Date: 06/02/24 Loc: MAMMO Attending Dr: BARRY BARBER Ordering Physician: BARRY BARBER Results: Date of Service: 06/02/24 Follow Up: Procedure(s): MM screening mammo BI Accession Number(s): [id number] cc: BARRY BARBER Patient Name: KATE HAGEN MR#: [id number] : 1950 Exam Date: 06/02/2024 Ordering Doctor: DR BARRY BARBER M.D. RADIOLOGY REPORT PROCEDURE: MM SCREENING MAMMO BI COMPARISON: MM SCREENING MAMMO BI, 04/12/2023. INDICATIONS: Screening Calculator Name NCI Breast Cancer Risk Assessment Tool 5 Year Breast Cancer Risk 1.90% Lifetime Breast Cancer Risk 4.00% Personal Breast Cancer No Personal Ovarian Cancer No Treatments None Family Cancers None LOCATION: [facility] BREAST COMPOSITION: The breasts are almost entirely fatty. FINDINGS: DIAGNOSTIC CATEGORY 1--NEGATIVE. NO CHANGE FROM COMPARISON ASSESSMENT. Scattered benign-appearing calcifications are present. RIGHT BREAST: No significant suspicious finding. LEFT BREAST: No significant suspicious finding. RECOMMENDATIONS: ROUTINE MAMMOGRAM AND CLINICAL EVALUATION IN 12 MONTHS. PLEASE NOTE: A NORMAL MAMMOGRAM DOES NOT EXCLUDE THE POSSIBILITY OF BREAST CANCER. A CLINICALLY SUSPICIOUS PALPABLE LUMP SHOULD BE BIOPSIED. Dictated by: Lyn Blackwell MD on 06/02/2024 at 15:37 Approved by: Lyn Blackwell MD on 06/02/2024 at 15:47 Dictated By: Lyn Blackwell M.D. Signed By: 06/02/24 1548 DD/ 1547 TD/TT: Foley Artist: [facility] Radiology Study observation (narrative) [facility] MG Breast - bilateral Screen ingOrdered By: Radiologist Radiology on 06-02-2024 [facility] Work Phone: [facility] CBC WITH PLATELET NO DI FFERENTIALon 04-04-2024 Erythrocyte distribution width (RBC) [Ratio] 12.7 % 11.0 - 15.0 % [facility] Hematocrit (Bld) [Volume fraction] 31.7 % Low 36.0 - 48.0 % [facility] Hemoglobin (Bld) [Mass/Vol] 9.9 g/dL Low 12.0 - 16.0 g/dL [facility] Interpretation and review of laboratory results Abnormal [facility] MCH (RBC) [Entitic mass] 31.8 pg 26.7 - 34.0 pg [facility] MCHC (RBC) [Mass/Vol] 31.2 g/dL 29.9 - 35.2 g/dL [facility] MCV (RBC) [Entitic vol] 101.9 fL High 81.0 - 99.0 fL [facility] Platelet mean volume (Bld) [Entitic vol] 9.8 fL 9.5 - 13.5 fL [facility] TB PLT 208 [facility] TB RBC 3.11 Low [facility] TB WBC 8.7 [facility] Ambulatory Visit Summaryon 1 05-15-2023 Ambulatory Visit [...] Contact prescribing (more content not included)... Normal [facility] Urology Office/Clinic Noteon 03-15-2024 Urology Office/Clinic Note [...] history for this patient from Shaye Pittman, DARWIN-C, HUMAN RESOURCE CONSULTANT I have reviewed and verified the staff [...] right adrenal (more content not included)... Normal [facility] Comment on above: Result Comment: Elec tronically Signed By: Jacqui Michael MD\.br\Date and Time Signed: 03/15/24 16:02 EST\.br\Electronically Co-Signed By: Danielle Ramirez.[email or web address]\Date and Time Co-Signed: 03/15/24 11:50 EST C. DIFFICILE PCRon 4 C. DIFFICILE PCR Positive Critically abnormal NEGATIVE [facility] Comment on above: [facility] Interpretation and review of laboratory results Abnormal [facility] - Hematology and Cell countson 01-17-2024 HbA1c (Bld) [Mass fraction] 5.1 % [facility] No Panel Informationon 01-16 [facility] CBC AND AUTO DIFFon 12-03-19 24 ABSOLUTE BASOPHIL 0.1 X10E9/L Normal 0.0-0.2 [facility] Comment on above: Performed By: #### C BCA #### [facility] ([id number]) [address] [place] [address]83 ABSOLUTE NEUTROPHIL 5.3 X10E9/L Normal 1.5-6.6 [facility] Comment on above: Performed By: #### C BCA #### [facility] ([id number]) [address] [place] [address] 33393 Basophils/100 WBC (Bld) 0.6 % Normal [facility] Comment on above: Performed By: #### C BCA #### [facility] ([id number]) [address] [place] [address] 56032 Eosinophils (Bld) [#/Vol] 0.1 10*3/uL Normal 0.0-0.4 [facility] Comment on above: Performed By: #### C BCA #### [facility] ([id number]) [address] [place] [address] 64377 Eosinophils/100 WBC (Bld) 1.1 % Normal [facility] Comment on above: Performed By: #### C BCA #### [facility] ([id number]) [address] [place] [address] 10493 Erythrocyte distribution width (RBC) [Ratio] 15.4 % High 11.5-15.0 [facility] Comment on above: Performed By: #### C BCA #### [facility] ([id number]) [address] [place] [address] 76669 Hematocrit (Bld) [Volume fraction] 28.9 % Low 35-47 [facility] Comment on above: Performed By: #### C BCA #### [facility] ([id number]) [address] [place] [address] 86234 Hemoglobin (Bld) [Mass/Vol] 9.8 g/dL Low 11.7-15.5 [facility] Comment on above: Performed By: #### C BCA #### [facility] ([id number]) [address] [place] [address] 12910 Lymphocytes (Bld) [#/Vol] 2.7 10*3/uL Normal 1.0-3.5 [facility] Comment on above: Performed By: #### C BCA #### [facility] ([id number]) [address] [place] [address] 93780 Lymphocytes/100 WBC (Bld) 30.5 % Normal [facility] Comment on above: Performed By: #### C BCA #### [facility] ([id number]) [address] [place] [address] 53655 MCH (RBC) [Entitic mass] 30.8 pg Normal 27-34 [facility] Comment on above: Performed By: #### C BCA #### [facility] ([id number]) [address] [place] [address] 05118 MCHC (RBC) [Mass/Vol] 33.9 g/dL Normal 32-36 [facility] Comment on above: Performed By: #### C BCA #### [facility] ([id number]) [address] [place] [address] 07308 MCV (RBC) [Entitic vol] 91 fL Normal 80-100 [facility] Comment on above: Performed By: #### C BCA #### [facility] ([id number]) [address] [place] [address] 30564 Monocytes (Bld) [#/Vol] 0.6 10*3/uL Normal 0-0.9 [facility] Comment on above: Performed By: #### C BCA #### [facility] ([id number]) [address] [place] [address] 15009 Monocytes/100 WBC (Bld) 7.3 % Normal [facility] Comment on above: Performed By: #### C BCA #### [facility] ([id number]) [address] [place] [address] 91992 Neutrophils/100 WBC (Bld) 60.5 % Normal [facility] Comment on above: Performed By: #### C BCA #### [facility] ([id number]) [address] [place] [address] 71796 Platelet mean volume (Bld) [Entitic vol] 8.4 fL Normal 7-12 [facility] Comment on above: Performed By: #### C BCA #### [facility] ([id number]) [address] [place] [address] 10563 Platelets (Bld) [#/Vol] 210 10*3/uL Normal 150-450 [facility] Comment on above: Performed By: #### C BCA #### [facility] ([id number]) [address] [place] [address] 49279 RBC COUNT 3.18 X10E12/L Low 3.80-5.20 [facility] Comment on above: Performed By: #### C BCA #### [facility] ([id number]) [address] [place] [address] 44683 WBC (Bld) [#/Vol] 8.8 10*3/uL Normal 4.0-11.0 [facility] Comment on above: Performed By: #### C BCA #### [facility] ([id number]) [address] [place] [address] 98910 RENAL PANELon 12-03-2023 Albumin [Mass/Vol] 3.2 g/dL Normal 3.2-5.3 [facility] Comment on above: Performed By: #### R ENAL #### [facility] ([id number]) [address] [place] [address] 48730 Anion gap [Moles/Vol] 11 mmol/L Normal 5-15 [facility] Comment on above: Performed By: #### R ENAL #### [facility] ([id number]) [address] [place] [address] 31030 Calcium [Mass/Vol] 10.8 mg/dL High 8.5-10.5 [facility] Comment on above: Performed By: #### R ENAL #### [facility] ([id number]) [address] [place] [address] 10401 Chloride [Moles/Vol] 85 mmol/L Low 98-109 [facility] Comment on above: Performed By: #### R ENAL #### [facility] ([id number]) [address] [place] [address] 01266 CO2 [Moles/Vol] 39 mmol/L High 22-32 [facility] Comment on above: Performed By: #### R ENAL #### [facility] ([id number]) [address] [place] [address] 95182 Creatinine [Mass/Vol] 3.67 mg/dL High 0.40-1.00 [facility] Comment on above: Result Comment: METH OD TRACEABLE TO IDMS STANDARD Performed By: #### R ENAL #### [facility] ([id number]) [address] [place] [address] 69703 GFR/1.73 sq M.predicted among non-blacks MDRD (S/P/Bld) [Vol rate/Area] 12 mL/min/{1.73_m2} Low >59 [facility] Comment on above: Result Comment: Reported eGFR is based on the CKD-EPI 2020 equation that does not use a race coefficient. Performed By: #### R ENAL #### [facility] ([id number]) [address] [place] [address] 72593 Glucose [Mass/Vol] 127 mg/dL High 65-99 [facility] Comment on above: Performed By: #### R ENAL #### [facility] ([id number]) [address] [place] [address] 83061 Phosphate [Mass/Vol] 4.2 mg/dL Normal 2.4-4.9 [facility] Comment on above: Performed By: #### R ENAL #### [facility] ([id number]) [address] [place] [address] 15811 Potassium [Moles/Vol] 3.3 mmol/L Low 3.5-5.0 [facility] Comment on above: Performed By: #### R ENAL #### [facility] ([id number]) [address] [place] [address] 01081 Sodium [Moles/Vol] 135 mmol/L Normal 134-146 [facility] Comment on above: Performed By: #### R ENAL #### [facility] ([id number]) [address] [place] [address] 63449 Urea nitrogen [Mass/Vol] 46 mg/dL High 5-27 [facility] Comment on above: Performed By: #### R ENAL #### [facility] ([id number]) [address] [place] [address] 15766 Automated basophil %Ordered By: Nickie Clay on 11-11-2023 Basophils/100 WBC (Bld) 0.2 % . [facility] Comment on above: Performed By: #### G LULS #### Point of Care testing , Automated basophil countOrde red By: Nickie Clay on 07-11-2024 Basophils (Bld) [#/Vol] 0.0 10*3/uL 0.0-0.2 [facility] Comment on above: Result Comment: PERF ORMED BY: [facility] [address] [place] [address] PATHOLOGIST [employer] OPER[employer] HELPER KOBE VENCES M.D. Performed By: #### G LULS #### Point of Care testing , Automated blood monocyte cou ntOrdered By: Nickie Clay on 11-11-2023 Monocytes (Bld) [#/Vol] 0.5 10*3/uL 0.0-0.8 [facility] Comment on above: Performed By: #### G LULS #### Point of Care testing , Automated eosinophil %Ordere d By: Nickie Clay on 11-11-2023 Eosinophils/100 WBC (Bld) 1.1 % . [facility] Comment on above: Performed By: #### G LULS #### Point of Care testing , Automated eosinophil countOr dered By: Nickie Clay on 11-11-2023 Eosinophils (Bld) [#/Vol] 0.1 10*3/uL 0.0-0.45 [facility] Comment on above: Performed By: #### G LULS #### Point of Care testing , Automated monocyte %Ordered By: Nickie Clay on 11-11-2023 Monocytes/100 WBC (Bld) 5.2 % . [facility] Comment on above: Performed By: #### G LULS #### Point of Care testing , Automated neutrophil %Ordere d By: Nickie Clay on 11-11-2023 Neutrophils/100 WBC (Bld) 80.3 % . [facility] Comment on above: Performed By: #### G LULS #### Point of Care testing , Basic Metabolic Panelon 10-31 Creatinine Clr Calc Pharmacy 24.21 Normal [facility] Comment on above: Performed By: #### C AION #### [facility] , #### HEPATIC, HS TROP, BMP, MG, PTT, CK, BNP, PT, CBC #### [facility] [address] GFR/1.73 sq M.predicted MDRD (S/P/Bld) [Vol rate/Area] 31.054 mL/min/{1.73_m2} Normal [facility] Comment on above: Performed By: #### C AION #### [facility] , #### HEPATIC, HS TROP, BMP, MG, PTT, CK, BNP, PT, CBC #### [address] Calcium [Mass/volume] in Ser um or PlasmaOrdered By: Gina Poole on 11-11-2023 Calcium [Mass/Vol] 7.5 mg/dL Low 8.6-10.3 [facility] Comment on above: Performed By: #### C AION #### [facility] , #### HEPATIC, HS TROP, BMP, MG, PTT, CK, BNP, PT, CBC #### [address] Carbon dioxide, total [Moles /volume] in Serum or PlasmaOrdered By: Gina Poole on 11-11-2023 CO2 [Moles/Vol] 31.6 mmol/L High 21.0-31.0 [facility] Comment on above: Performed By: #### C AION #### [facility] , #### HEPATIC, HS TROP, BMP, MG, PTT, CK, BNP, PT, CBC #### [place] [address] [place] Chloride [Moles/volume] in S arti or PlasmaOrdered By: Gina Poole on 11-11-2023 Chloride [Moles/Vol] 95 mmol/L Low 98-107 [facility] Comment on above: Performed By: #### C AION #### [facility] , #### HEPATIC, HS TROP, BMP, MG, PTT, CK, BNP, PT, CBC #### [facility] [address] [place] [address] Complete Blood Count Auto Di ffon 11-11-2023 Mean Corpuscular HGB Conc 33.5 g/dL Normal 32.0-35.0 [facility] Comment on above: Performed By: #### G DANIELALS #### Point of Care testing , NRBC% 0.0 /100{WBC} Normal 0-0.5 [facility] Comment on above: Performed By: #### G DANIELALS #### Point of Care testing , Creatinine [Mass/volume] in Serum or PlasmaOrdered By: Gina Poole on 11-11-2023 Creatinine [Mass/Vol] 1.71 mg/dL High 0.60-1.20 [facility] Comment on above: Performed By: #### C AION #### [facility] , #### HEPATIC, HS TROP, BMP, MG, PTT, CK, BNP, PT, CBC #### [facility] [address] Erythrocyte distribution wid th [Ratio] by Automated countOrdered By: Nickie Clay on 11-11-2023 Erythrocyte distribution width (RBC) [Ratio] 17.3 % High 11.9-15.3 [facility] Comment on above: Performed By: #### G TASHA #### Point of Care testing , Erythrocytes [#/volume] in B lood by Automated countOrdered By: Nickie Clay on 11-11-2023 RBC (Bld) [#/Vol] 3.19 10*6/uL Low 3.60-5.00 [facility] Comment on above: Performed By: #### G TASHA #### Point of Care testing , Glucose [Mass/volume] in Ser um or PlasmaOrdered By: Gina Poole on 11-11-2023 Glucose [Mass/Vol] 110 mg/dL High 70-100 [facility] Comment on above: ADA recommended refe rence rangeRandom Glucose Reference Range is dependent on time and content of last meal. Glucose of more than 200 mg/dL in a nonstressed, ambulatory subject supports the diagnosis of Diabetes Mellitus. Result Comment: [place] om Glucose Reference Range is dependent on time and content of last meal. Glucose of more than 200 mg/dL in a nonstressed, ambulatory subject supports the diagnosis of Diabetes Mellitus. ADA recommended reference range Performed By: #### C AINADIA #### [facility] , #### HEPATIC, HS TROP, BMP, MG, PTT, CK, BNP, PT, CBC #### [facility] [address] Hematocrit [Volume Fraction] of Blood by Automated countOrdered By: Nickie Clay on 11-11-2023 Hematocrit (Bld) [Volume fraction] 29.1 % Low 34.0-46.4 [facility] Comment on above: Performed By: #### G LULS #### Point of Care testing , Hemoglobin [Mass/volume] in BloodOrdered By: Nickie Clay on 11-11-2023 Hemoglobin (Bld) [Mass/Vol] 9.8 g/dL Low 11.8-15.4 [facility] Comment on above: Performed By: #### G LULS #### Point of Care testing , Leukocytes [#/volume] correc loan for nucleated erythrocytes in Blood by Automated counOrdered By: Nickie Clay on 11-11-2023 WBC corrected for nucl RBC Auto (Bld) [#/Vol] 9.3 10*3/uL 3.8-11.6 [facility] Leukocytes [#/volume] in Blo od by Automated countOrdered By: Nickie Clay on 11-11-2023 WBC (Bld) [#/Vol] 9.3 10*3/uL 3.8-11.6 [facility] Comment on above: Performed By: #### G LULS #### Point of Care testing , Lymphocytes [#/volume] in Bl ood by Automated countOrdered By: Nickie Clay on 11-11-2023 Lymphocytes (Bld) [#/Vol] 1.2 10*3/uL 1.00-4.8 [facility] Comment on above: Performed By: #### G LULS #### Point of Care testing , Lymphocytes/100 leukocytes i n Blood by Automated countOrdered By: Nickie Clay on 11-11-2023 Lymphocytes/100 WBC (Bld) 13.2 % . [facility] Comment on above: Performed By: #### G LULS #### Point of Care testing , MCH [Entitic mass] by Automa loan countOrdered By: Nickie Clay on 11-11-2023 MCH (RBC) [Entitic mass] 30.6 pg 24.7-34.3 [facility] Comment on above: Performed By: #### G LULS #### Point of Care testing , MCHC Auto (RBC) [Mass/Vol]Or dered By: Nickie Clay on 11-11-2023 MCHC (RBC) [Mass/Vol] 33.5 g/dL 32.0-35.0 [facility] MCV [Entitic volume] by Auto mated countOrdered By: Nickie Clay on 11-11-2023 MCV (RBC) [Entitic vol] 91.4 fL 80-100 [facility] Comment on above: Performed By: #### G LULS #### Point of Care testing , Magnesium [Mass/volume] in S arti or PlasmaOrdered By: Gina Poole on 11-11-2023 Magnesium [Mass/Vol] 2.0 mg/dL 1.9-2.7 [facility] Comment on above: Result Comment: PERF ORMED BY: [place] [address] PATHOLOGIST [employer] OPER[employer] HELPER KOBE VENCES M.D. Performed By: #### C AION #### [facility] , #### HEPATIC, HS TROP, BMP, MG, PTT, CK, BNP, PT, CBC #### [address] Neutrophils [#/volume] in Bl ood by Automated countOrdered By: Nickie Clay on 11-11-2023 Neutrophils (Bld) [#/Vol] 7.5 10*3/uL 1.8-7.7 [facility] Comment on above: Performed By: #### G LULS #### Point of Care testing , No Panel InformationOrdered By: Gina Poole on 11-11-2023 Estimated GFR (CKD-EPI) 31.054 mL/Min [facility] Creatinine Clearance (Chem 24.21 [facility] Nucleated erythrocytes [Pres ence] in Blood by Automated countOrdered By: Nickie Clay on 11-11-2023 Nucleated RBC Auto Ql (Bld) 0.0 /100{WBC} 0-0.5 [facility] Phosphate [Mass/volume] in S arti or PlasmaOrdered By: Gina Poole on 11-11-2023 Phosphate [Mass/Vol] 4.8 mg/dL High 2.5-4.5 [facility] Comment on above: Performed By: #### C AION #### [facility] , #### HEPATIC, HS TROP, BMP, MG, PTT, CK, BNP, PT, CBC #### [facility] [address] Platelet mean volume [Entiti c volume] in Blood by Automated countOrdered By: Nickie Clay on 11-11-2023 Platelet mean volume (Bld) [Entitic vol] 7.3 fL 6.3-10.7 [facility] Comment on above: Performed By: #### G LULS #### Point of Care testing , Platelets [#/volume] in Bloo d by Automated countOrdered By: Nickie Clay on 11-11-2023 Platelets (Bld) [#/Vol] 139 10*3/uL Low 150-450 [facility] Comment on above: Performed By: #### G LULS #### Point of Care testing , Potassium [Moles/volume] in Serum or PlasmaOrdered By: Gina Poole on 11-11-2023 Potassium [Moles/Vol] 4.0 mmol/L 3.5-5.1 [facility] Comment on above: Performed By: #### C AION #### [facility] , #### HEPATIC, HS TROP, BMP, MG, PTT, CK, BNP, PT, CBC #### [facility] [address] Serum or plasma anion gap de terminationOrdered By: Gina Poole on 11-11-2023 Anion gap [Moles/Vol] 16.4 mmol/L High 6.0-15.0 [facility] Comment on above: Performed By: #### C AION #### [facility] , #### HEPATIC, HS TROP, BMP, MG, PTT, CK, BNP, PT, CBC #### [address] Sodium [Moles/volume] in Ser um or PlasmaOrdered By: Gina Poole on 11-11-2023 Sodium [Moles/Vol] 139 mmol/L 136-145 [facility] Comment on above: Performed By: #### C AION #### [facility] , #### HEPATIC, HS TROP, BMP, MG, PTT, CK, BNP, PT, CBC #### [address] Urea nitrogen [Mass/volume] in Serum or PlasmaOrdered By: Gina Poole on 11-11-2023 Urea nitrogen [Mass/Vol] 35 mg/dL High 11-24 [facility] Comment on above: Performed By: #### C AION #### [facility] , #### HEPATIC, HS TROP, BMP, MG, PTT, CK, BNP, PT, CBC #### [address] Alanine aminotransferase [En zymatic activity/volume] in Serum or PlasmaOrdered By: Gina Poole on 11-10-2023 ALT [Catalytic activity/Vol] 23 U/L [facility] Comment on above: Performed By: #### G LULS #### Point of Care testing , Albumin [Mass/volume] in Ser um or Plasma by Bromocresol green (BCG) dye binding methoOrdered By: Gina Poole on 11-10-2023 Albumin BCG dye [Mass/Vol] 3.2 g/dL Low 3.5-5.7 [facility] Alkaline phosphatase [Enzyma tic activity/volume] in Serum or PlasmaOrdered By: Gina Poole on 11-10-2023 ALP [Catalytic activity/Vol] 47 U/L 34-104 [facility] Comment on above: Performed By: #### G LULS #### Point of Care testing , Aspartate aminotransferase [ Enzymatic activity/volume] in Serum or PlasmaOrdered By: Gina Poole on 11-10-2023 AST [Catalytic activity/Vol] 20 U/L 13-39 [facility] Comment on above: Performed By: #### G LULS #### Point of Care testing , Bilirubin.total [Mass/volume ] in Serum or PlasmaOrdered By: Gina Poole on 11-10-2023 Bilirubin [Mass/Vol] 0.6 mg/dL 0.3-1.0 [facility] Comment on above: Performed By: #### G LULS #### Point of Care testing , Capillary blood glucose hakeem urement by glucometer (mass/volume)Ordered By: Gina Poole on 11-10-2023 Glucose [Mass/Vol] 129 mg/dL [facility] Comment on above: Random Glucose Refer ence Range is dependent on time and content of last meal. Glucose of more than 200 mg/dL in a nonstressed, ambulatory subject supports the diagnosis of Diabetes Mellitus. Result Comment: [place] Glucose Reference Range is dependent on time and content of last meal. Glucose of more than 200 mg/dL in a nonstressed, ambulatory subject supports the diagnosis of Diabetes Mellitus. PERFORMED BY: [facility] [address] [place] [address] PATHOLOGIST [employer] OPER[employer] HELPER KOBE VENCES M.D. Performed By: #### G LULS #### Point of Care testing , Comprehensive Metabolic Pane marky 11-10-2023 Albumin [Mass/Vol] 3.2 g/dL Low 3.5-5.7 [facility] Comment on above: Performed By: #### G LULS #### Point of Care testing , Anion gap [Moles/Vol] 14.9 mmol/L Normal 6.0-15.0 [facility] Comment on above: Performed By: #### G LULS #### Point of Care testing , Calcium [Mass/Vol] 6.1 mg/dL Off scale low 8.6-10.3 [facility] Comment on above: Result Comment: Josht ical Result Called to and read back by: NOT FIRST TIME CRITICAL at: 11/10/2023 07:06:15 by:[id number] Performed By: #### G LULS #### Point of Care testing , Chloride [Moles/Vol] 93 mmol/L Low 98-107 [facility] Comment on above: Performed By: #### G LULS #### Point of Care testing , CO2 [Moles/Vol] 32.8 mmol/L High 21.0-31.0 [facility] Comment on above: Performed By: #### G LULS #### Point of Care testing , Creatinine [Mass/Vol] 1.98 mg/dL High 0.60-1.20 [facility] Comment on above: Performed By: #### G LULS #### Point of Care testing , Creatinine Clr Calc Pharmacy 20.86 Normal [facility] Comment on above: Performed By: #### G LULS #### Point of Care testing , GFR/1.73 sq M.predicted MDRD (S/P/Bld) [Vol rate/Area] 26.045 mL/min/{1.73_m2} Normal [facility] Comment on above: Performed By: #### G LULS #### Point of Care testing , Glucose [Mass/Vol] 106 mg/dL High 70-100 [facility] Comment on above: Result Comment: [place] Glucose Reference Range is dependent on time and content of last meal. Glucose of more than 200 mg/dL in a nonstressed, ambulatory subject supports the diagnosis of Diabetes Mellitus. ADA recommended reference range Performed By: #### G LULS #### Point of Care testing , Potassium [Moles/Vol] 3.7 mmol/L Normal 3.5-5.1 [facility] Comment on above: Performed By: #### G LULS #### Point of Care testing , Sodium [Moles/Vol] 137 mmol/L Normal 136-145 [facility] Comment on above: Performed By: #### G LULS #### Point of Care testing , Urea nitrogen [Mass/Vol] 36 mg/dL High 7-25 [facility] Comment on above: Performed By: #### G LULS #### Point of Care testing , Creatinine [Mass/volume] in UrineOrdered By: Shalonda Pearson on 11-10-2023 Creatinine (U) [Mass/Vol] 47.00 mg/dL [facility] Comment on above: No reference range e stablished Creatinine, Urine (Random)on 11-10-2023 Creatinine, Urine (Random) 47.00 mg/dL Normal [facility] Comment on above: Result Comment: No r eference range established PERFORMED BY: [place] [address] PATHOLOGIST [employer] OPER[employer] HELPER KOBE VENCES M.D. Performed By: #### U CREA ####[facility] [address]#### UMANGANESE ####[facility] , Ferritin [Mass/volume] in Se rum or PlasmaOrdered By: Shalonda Pearson on 11-10-2023 Ferritin [Mass/Vol] 822.6 ng/mL High 11.0-306.8 [facility] Comment on above: Performed By: #### C AION #### [facility] , #### HEPATIC, HS TROP, BMP, MG, PTT, CK, BNP, PT, CBC #### [facility] [address] [place] [address] Iron [Mass/volume] in Serum or PlasmaOrdered By: Shalonda Pearson on 11-10-2023 Iron [Mass/Vol] 14 ug/dL Low 50-212 [facility] Comment on above: Performed By: #### G LULS #### Point of Care testing , Iron and TIBC Profileon 10-31 0 % Iron Saturation 6.8 % Low 20-50 [facility] Comment on above: Performed By: #### G LULS #### Point of Care testing , Total Iron Binding Capacity 207 ug/dL Low 255-450 [facility] Comment on above: Performed By: #### G LULS #### Point of Care testing , Iron binding capacity [Mass/ volume] in Serum or PlasmaOrdered By: Shalonda Pearson on 11-10-2023 Iron binding capacity [Mass/Vol] 207 ug/dL Low 255-450 [facility] Iron saturation [Mass Fracti on] in Serum or PlasmaOrdered By: Shalonda Pearson on 11-10-2023 Iron saturation [Mass fraction] 6.8 % Low 20-50 [facility] Magnesiumon 11-10-2023 Magnesium [Mass/Vol] 1.6 mg/dL Low 1.9-2.7 [facility] Comment on above: Performed By: #### G LULS #### Point of Care testing , [place]anese Urine, randomon Creat [place] Urine Mangese 0.46 Normal 0.30-3.00 [facility] Comment on above: Result Comment: Dete ction Limit = 0.10 Performed By: #### U CREA ####[place] [address] [address]#### UMANGANESE ####[facility] , Manganese Creat Ratio <5.4 Normal . [facility] Comment on above: Result Comment: Envi ronmental Exposure:<3.0 Performed at: [address] [id number] Animal Herder: Jeff Hubbard MD, Phone: [phone] PERFORMED BY: [facility] [address] [place] [address] PATHOLOGIST [employer] OPERATOR HELPER KOBE VENCES M.D. Performed By: #### U CREA ####[facility] [address]#### UMANGANESE ####[facility] , [place] Urine <2.5 Normal 0.0-2.9 [facility] Comment on above: Result Comment: This test was developed and its performance characteristics determined by [facility]. It has not been cleared or approved by the Food and Drug Administration. Detection Limit = 2.5 Performed By: #### U LISETH ####[facility] [address] [place] [address] [facility]#### UMANGEDER ####[facility] , No Panel InformationOrdered By: Shalonda Pearson on 11-10-2023 Urine [place] ug/gm Creatinine 0.46 g/L 0.30-3.00 [facility] Comment on above: Detection Limit = 0. 10 Phosphoruson 11-10-2023 Phosphate [Mass/Vol] 5.4 mg/dL High 2.5-4.5 [facility] Comment on above: Performed By: #### G LULS #### Point of Care testing , Protein [Mass/volume] in Ser um or PlasmaOrdered By: Gina Poole on 11-10-2023 Protein [Mass/Vol] 6.0 g/dL Low 6.4-8.9 [facility] Comment on above: Performed By: #### G LULS #### Point of Care testing , Serum globulin measurement b y calculation (mass/volume)Ordered By: Gina Poole on 11-10-2023 Globulin (S) [Mass/Vol] 2.8 g/dL [facility] Comment on above: Performed By: #### G LULS #### Point of Care testing , Serum or plasma 25-hydroxyca lciferol measurement (mass/volume)Ordered By: Gina Poole on 11-10-2023 25-hydroxyvitamin D2 [Mass/Vol] <1.0 ng/mL . [facility] Comment on above: This test was develo ped and its performance characteristicsdetermined by [facility]. It has not been cleared or approvedby the Food and Drug Administration. Serum or plasma 25-hydroxyvi tamin D measurement (mass/volume)Ordered By: Gina Poole on 11-10-2023 25-hydroxyvitamin D [Mass/Vol] 33 ng/mL . [facility] Comment on above: Reference Range:All Ages: Target levels 30 - 100 Serum or plasma albumin/glob ulin mass ratioOrdered By: Gina Poole on 11-10-2023 Albumin/Globulin [Mass ratio] 1.1 {ratio} [facility] Comment on above: Performed By: #### G LULS #### Point of Care testing , Serum or plasma calcidiol me asurement (mass/volume)Ordered By: Gina Poole on 11-10-2023 25-hydroxyvitamin D3 [Mass/Vol] 33 ng/mL . [facility] Comment on above: This test was develo ped and its performance characteristicsdetermined by [facility]. It has not been cleared or approvedby the Food and Drug Administration.Performed at: [employer] [address] [id number] Director: Kingsley Pederson MD, Phone: [phone] Transferrin [Mass/volume] in Serum or PlasmaOrdered By: Shalonda Pearson on 11-10-2023 Transferrin [Mass/Vol] 148 mg/dL Low 203-362 [facility] Comment on above: Performed By: #### G LULS #### Point of Care testing , Urine manganese measurement (mass/volume)Ordered By: Shalonda Pearson on 11-10-2023 Manganese (U) [Mass/Vol] <2.5 ug/L 0.0-2.9 [facility] Comment on above: This test was develo ped and its performance characteristicsdetermined by [facility]. It has not been cleared orapproved by the Food and Drug Administration. Detection Limit = 2.5 Urine manganese/creatinine m ass ratioOrdered By: Shalonda Pearson on 11-10-2023 Manganese/Creatinine (U) [Mass ratio] <5.4 ug/g creat . [facility] Comment on above: Environmental Exposu re:<3.0Performed at: - [facility] [address] [id number] Director: Jeff Hubbard MD, Phone: [phone] Vitamin B12 ser/plasOrdered By: Shalonda Pearson on 11-10-2023 Cobalamin (Vitamin B12) [Mass/Vol] 320 pg/mL 180-774 [facility] Comment on above: Result Comment: PERF ORMED BY: [place] [address] PATHOLOGIST [employer] OPERATOR HELPER KOBE VENCES M.D. Performed By: #### C AION #### [facility] , #### HEPATIC, HS TROP, BMP, MG, PTT, CK, BNP, PT, CBC #### [address] Vitamin D 25 Hydroxy,Tot+D2+ D3on 11-10-2023 [facility] Vitamin D 25 OH 33 ng/mL Normal . [facility] Comment on above: Result Comment: Refe rence Range: All Ages: Target levels 30 - 100 Performed By: #### C AION #### [facility] , #### HEPATIC, HS TROP, BMP, MG, PTT, CK, BNP, PT, CBC #### [address] Vitamin D-2 <1.0 Normal . [facility] Comment on above: Result Comment: This test was developed and its performance characteristics determined by [facility]. It has not been cleared or approved by the Food and Drug Administration. Performed By: #### C AION #### [facility] , #### HEPATIC, HS TROP, BMP, MG, PTT, CK, BNP, PT, CBC #### [address] Vitamin D-3 33 ng/mL Normal . [facility] Comment on above: Result Comment: This test was developed and its performance characteristics determined by [facility]. It has not been cleared or approved by the Food and Drug Administration. Performed at: [employer] [address] [place] [id number] Animal Herder: Kingsley Pederson MD, Phone: [phone] PERFORMED BY: [place] [address] PATHOLOGIST [employer] OPERATOR HELPER KOBE VENCES M.D. Performed By: #### C AION #### [facility] , #### HEPATIC, HS TROP, BMP, MG, PTT, CK, BNP, PT, CBC #### [facility] [address] Basic Metabolic Panelon Anion gap [Moles/Vol] 13.6 mmol/L Normal 6.0-15.0 Th e [facility] Comment on above: Performed By: #### G LULS #### Point of Care testing , Calcium [Mass/Vol] 4.7 mg/dL Off scale low 8.6-10.3 [facility] Comment on above: Result Comment: Crit ical Result Called to and read back by: VINH CONLEY at: 11/09/2023 07:53:34 by:[id number] Performed By: #### G LULS #### Point of Care testing , Chloride [Moles/Vol] 92 mmol/L Low 98-107 [facility] Comment on above: Performed By: #### G LULS #### Point of Care testing , CO2 [Moles/Vol] 34.7 mmol/L High 21.0-31.0 [facility] Comment on above: Performed By: #### G LULS #### Point of Care testing , Creatinine [Mass/Vol] 2.04 mg/dL High 0.60-1.20 [facility] Comment on above: Performed By: #### G LULS #### Point of Care testing , Creatinine Clr Calc Pharmacy 20.88 Normal [facility] Comment on above: Performed By: #### G LULS #### Point of Care testing , GFR/1.73 sq M.predicted MDRD (S/P/Bld) [Vol rate/Area] 25.128 mL/min/{1.73_m2} Normal [facility] Comment on above: Performed By: #### G LULS #### Point of Care testing , Glucose [Mass/Vol] 83 mg/dL Normal 70-100 [facility] Comment on above: Result Comment: [place] om Glucose Reference Range is dependent on time and content of last meal. Glucose of more than 200 mg/dL in a nonstressed, ambulatory subject supports the diagnosis of Diabetes Mellitus. ADA recommended reference range Performed By: #### G LULS #### Point of Care testing , Potassium [Moles/Vol] 3.3 mmol/L Low 3.5-5.1 [facility] Comment on above: Performed By: #### G LULS #### Point of Care testing , Sodium [Moles/Vol] 137 mmol/L Normal 136-145 [facility] Comment on above: Performed By: #### G LULS #### Point of Care testing , Urea nitrogen [Mass/Vol] 38 mg/dL High 7-25 [facility] Comment on above: Performed By: #### G LULS #### Point of Care testing , Complete Blood Count Auto Di ffon 11-09-2023 Basophils (Bld) [#/Vol] 0.0 10*3/uL Normal 0.0-0.2 [facility] Comment on above: Result Comment: PERF ORMED BY: [address] [place] [address] PATHOLOGIST [employer] OPERATOR HELPER KOBE VENCES M.D. Performed By: #### G LULS #### Point of Care testing , Basophils/100 WBC (Bld) 0.1 % Normal . [facility] Comment on above: Performed By: #### G LULS #### Point of Care testing , Eosinophils (Bld) [#/Vol] 0.3 10*3/uL Normal 0.0-0.45 [facility] Comment on above: Performed By: #### G LULS #### Point of Care testing , Eosinophils/100 WBC (Bld) 2.4 % Normal . [facility] Comment on above: Performed By: #### G LULS #### Point of Care testing , Erythrocyte distribution width (RBC) [Ratio] 17.2 % High 11.9-15.3 [facility] Comment on above: Performed By: #### G LULS #### Point of Care testing , Hematocrit (Bld) [Volume fraction] 30.1 % Low 34.0-46.4 [facility] Comment on above: Performed By: #### G LULS #### Point of Care testing , Hemoglobin (Bld) [Mass/Vol] 9.9 g/dL Low 11.8-15.4 [facility] Comment on above: Performed By: #### G LULS #### Point of Care testing , Lymphocytes (Bld) [#/Vol] 1.9 10*3/uL Normal 1.00-4.8 [facility] Comment on above: Performed By: #### G LULS #### Point of Care testing , Lymphocytes/100 WBC (Bld) 15.5 % Normal . [facility] Comment on above: Performed By: #### G LULS #### Point of Care testing , MCH (RBC) [Entitic mass] 30.1 pg Normal 24.7-34.3 [facility] Comment on above: Performed By: #### G LULS #### Point of Care testing , MCV (RBC) [Entitic vol] 91.4 fL Normal 80-100 [facility] Comment on above: Performed By: #### G LULS #### Point of Care testing , Mean Corpuscular HGB Conc 33.0 g/dL Normal 32.0-35.0 [facility] Comment on above: Performed By: #### G LULS #### Point of Care testing , Monocytes (Bld) [#/Vol] 0.8 10*3/uL Normal 0.0-0.8 [facility] Comment on above: Performed By: #### G LULS #### Point of Care testing , Monocytes/100 WBC (Bld) 6.1 % Normal . [facility] Comment on above: Performed By: #### G LULS #### Point of Care testing , Neutrophils (Bld) [#/Vol] 9.4 10*3/uL High 1.8-7.7 [facility] Comment on above: Performed By: #### G LULS #### Point of Care testing , Neutrophils/100 WBC (Bld) 75.9 % Normal . [facility] Comment on above: Performed By: #### G LULS #### Point of Care testing , NRBC% 0.1 /100{WBC} Normal 0-0.5 [facility] Comment on above: Performed By: #### G TASHA #### Point of Care testing , Platelet mean volume (Bld) [Entitic vol] 7.4 fL Normal 6.3-10.7 [facility] Comment on above: Performed By: #### G TASHA #### Point of Care testing , Platelets (Bld) [#/Vol] 163 10*3/uL Normal 150-450 [facility] Comment on above: Performed By: #### G DANIELALS #### Point of Care testing , RBC (Bld) [#/Vol] 3.30 10*6/uL Low 3.60-5.00 [facility] Comment on above: Performed By: #### G DANIELALS #### Point of Care testing , WBC (Bld) [#/Vol] 12.4 10*3/uL High 3.8-11.6 [facility] Comment on above: Performed By: #### G TASHA #### Point of Care testing , Comprehensive Metabolic Pane marky 11-09-2023 Albumin [Mass/Vol] 3.2 g/dL Low 3.5-5.7 [facility] Comment on above: Performed By: #### C MP, PHOS, MG ####[address] Albumin/Globulin [Mass ratio] 1.1 {ratio} Normal [facility] Comment on above: Performed By: #### C MP, PHOS, MG ####[place] [id number] [facility] ALP [Catalytic activity/Vol] 48 U/L Normal 34-104 [facility] Comment on above: Performed By: #### C MP, PHOS, MG ####[place] [id number] [facility] ALT [Catalytic activity/Vol] 24 U/L Normal 7-52 [facility] Comment on above: Performed By: #### C MP, PHOS, MG ####[address] Anion gap [Moles/Vol] 13.8 mmol/L Normal 6.0-15.0 Th e [facility] Comment on above: Performed By: #### C MP, PHOS, MG ####[place] [id number] [address] AST [Catalytic activity/Vol] 21 U/L Normal 13-39 [facility] Comment on above: Performed By: #### C MP, PHOS, MG ####[address] Bilirubin [Mass/Vol] 0.4 mg/dL Normal 0.3-1.0 [facility] Comment on above: Performed By: #### C MP, PHOS, MG ####[address] Calcium [Mass/Vol] 5.2 mg/dL Off scale low 8.6-10.3 [facility] Comment on above: Result Comment: Crit ical Result Called to and read back by: NOT FIRST CRITICAL at: 11/09/2023 14:26:59 by:NICO Performed By: #### C MP, PHOS, MG ####[address] Chloride [Moles/Vol] 92 mmol/L Low 98-107 [facility] Comment on above: Performed By: #### C MP, PHOS, MG ####[address] CO2 [Moles/Vol] 32.6 mmol/L High 21.0-31.0 [facility] Comment on above: Performed By: #### C MP, PHOS, MG ####[address] Creatinine [Mass/Vol] 1.82 mg/dL High 0.60-1.20 [facility] Comment on above: Performed By: #### C MP, PHOS, MG ####[address] Creatinine Clr Calc Pharmacy 23.40 Normal [facility] Comment on above: Performed By: #### C MP, PHOS, MG ####[address] GFR/1.73 sq M.predicted MDRD (S/P/Bld) [Vol rate/Area] 28.815 mL/min/{1.73_m2} Normal [facility] Comment on above: Performed By: #### C MP, PHOS, MG ####[address] Globulin (S) [Mass/Vol] 2.8 g/dL Normal [facility] Comment on above: Performed By: #### C MP, PHOS, MG ####[address] Glucose [Mass/Vol] 117 mg/dL High 70-100 [facility] Comment on above: Result Comment: [place] Glucose Reference Range is dependent on time and content of last meal. Glucose of more than 200 mg/dL in a nonstressed, ambulatory subject supports the diagnosis of Diabetes Mellitus. ADA recommended reference range Performed By: #### C MP, PHOS, MG ####[address] Potassium [Moles/Vol] 3.4 mmol/L Low 3.5-5.1 [facility] Comment on above: Performed By: #### C MP, PHOS, MG ####[address] Protein [Mass/Vol] 6.0 g/dL Low 6.4-8.9 [facility] Comment on above: Performed By: #### C MP, PHOS, MG ####[address] Sodium [Moles/Vol] 135 mmol/L Low 136-145 [facility] Comment on above: Performed By: #### C MP, PHOS, MG ####[address] Urea nitrogen [Mass/Vol] 36 mg/dL High 7-25 [facility] Comment on above: Performed By: #### C MP, PHOS, MG ####[facility] [address] [place] [id number] [facility] ECG 12 lead ECGon 11-09-2023 ECG 12 lead ECG [facility] [place] [address] [place] [address] Electrocardiograph Report Signed Patient: Kate Hagen MR#: [id number] 52 : 1950 Acct:[id number] Age/Sex: 72 / F ADM Date: 11/08/23 Loc: Room: [address] [place] [address] Type: ADM IN Attending Dr: Gina Poole [...] hyperkalemia Abnormal ECG Confirmed by CAM XIE [facility], COLIN ([id number]) on 11/09/2023 4:26:03 PM Referred By: Electronically Signed By:COLIN LEVY MD [facility] Transcribed By: MUS Signed By Colin Levy MD, [facility] 11/09/23 1626 Normal [facility] Glucose Poct Glucometerson 0 11-09-2023 Glucose [Mass/Vol] 120 mg/dL Normal [facility] Comment on above: Result Comment: [facility] [place][note 2] Glucose Reference Range is dependent on time and content of last meal. Glucose of more than 200 mg/dL in a nonstressed, ambulatory subject supports the diagnosis of Diabetes Mellitus. PERFORMED BY: [place] [address] PATHOLOGIST [employer] OPERATOR HELPER KOBE VENCES M.D. Performed By: #### C AION #### [facility] , #### HEPATIC, HS TROP, BMP, MG, PTT, CK, BNP, PT, CBC #### [address] Glucose [Mass/Vol] 156 mg/dL Normal [facility] Comment on above: Result Comment: [place] Glucose Reference Range is dependent on time and content of last meal. Glucose of more than 200 mg/dL in a nonstressed, ambulatory subject supports the diagnosis of Diabetes Mellitus. PERFORMED BY: [place] [phone] PATHOLOGIST [employer] OPERATOR HELPER KOBE VENCES M.D. Performed By: #### G LULS #### Point of Care testing , Glucose [Mass/Vol] 140 mg/dL Normal [facility] Comment on above: Result Comment: [facility] [place][note 2] Glucose Reference Range is dependent on time and content of last meal. Glucose of more than 200 mg/dL in a nonstressed, ambulatory subject supports the diagnosis of Diabetes Mellitus. PERFORMED BY: [place] [phone] PATHOLOGIST [employer] OPERATOR HELPER KOBE VENCES M.D. Performed By: #### C AION #### [facility] , #### HEPATIC, HS TROP, BMP, MG, PTT, CK, BNP, PT, CBC #### [address] Glucose [Mass/Vol] 114 mg/dL Normal [facility] Comment on above: Result Comment: [place] Glucose Reference Range is dependent on time and content of last meal. Glucose of more than 200 mg/dL in a nonstressed, ambulatory subject supports the diagnosis of Diabetes Mellitus. PERFORMED BY: [place] [address] PATHOLOGIST [employer] OPERATOR HELPER KOBE VENCES M.D. Performed By: #### C AION #### [facility] , #### HEPATIC, HS TROP, BMP, MG, PTT, CK, BNP, PT, CBC #### [address] Magnesiumon 11-09-2023 Magnesium [Mass/Vol] 1.8 mg/dL Low 1.9-2.7 [facility] Comment on above: Result Comment: PERF ORMED BY: [facility] [address] [facility] [place] [address] PATHOLOGIST [employer] OPERATOR HELPER KOBE VENCES M.D. Performed By: #### C MP, PHOS, MG ####[address] Magnesium [Mass/Vol] 1.3 mg/dL Low 1.9-2.7 [facility] Comment on above: Result Comment: PERF ORMED BY: [facility] [address] [place] [address] PATHOLOGIST [employer] OPERATOR HELPER KOBE VENCES M.D. Performed By: #### B MP, MG, PHOS, CBC ####[address] Parathyrin.intact [Mass/volu me] in Serum or PlasmaOrdered By: Gina Poole on 11-09-2023 Parathyrin.intact [Mass/Vol] 524.0 pg/mL High [facility] Parathyroid Hormone Intacton 11-09-2023 Parathyroid Hormone Intact 524.0 pg/mL High [facility] Comment on above: Order Comment: Comme nt add on to AM labs Result Comment: PERF ORMED BY: [facility] [address] [place] [address] PATHOLOGIST [employer] OPERATOR HELPER KOBE VENCES M.D. Performed By: #### C AION #### [facility] , #### HEPATIC, HS TROP, BMP, MG, PTT, CK, BNP, PT, CBC #### [facility] [address] Phosphoruson 11-09-2023 Phosphate [Mass/Vol] 5.8 mg/dL High 2.5-4.5 [facility] Comment on above: Performed By: #### C MP, PHOS, MG ####[address] Phosphate [Mass/Vol] 6.2 mg/dL High 2.5-4.5 [facility] Comment on above: Performed By: #### G LULS #### Point of Care testing , Urate [Mass/volume] in Serum or PlasmaOrdered By: Gina Poole on 11-09-2023 Urate [Mass/Vol] 8.1 mg/dL High 2.3-6.6 [facility] Comment on above: Order Comment: Comme nt add on to AM labs Performed By: #### C AION #### [facility] , #### HEPATIC, HS TROP, BMP, MG, PTT, CK, BNP, PT, CBC #### [facility] [address] [place] [id number] [facility] Vitamin D 25 Hydroxy Totalon 11-09-2023 Vitamin D 25 Hydroxy Total 49.7 ng/mL Normal 30-100 [facility] Comment on above: Order Comment: Comme nt add on to AM labs Result Comment: [place] MIN D STATUS 25(OH)VITAMIN D RANGE (ng/mL) Deficient <20 Insufficient 20 to <30 Sufficient 30 to 100 Reference: Lucero MF,Charity NC, Lissette-Kwame ROUSE, et al. Evaluation,treatment, and prevention of vitamin D deficiency; an Endocrine Society clinical practice guideline. JCEM. 2010; 96(7):1911-30. PERFORMED BY: [place] [address] PATHOLOGIST [employer] OPERATOR HELPER KOBE VENCES M.D. Performed By: #### C AION #### [facility] , #### HEPATIC, HS TROP, BMP, MG, PTT, CK, BNP, PT, CBC #### [facility] [address] [place] [id number] [facility] Vitamin D+Metabolites [Mass/ volume] in Serum or PlasmaOrdered By: Gina Poole on 11-09-2023 Vitamin D+Metabolites [Mass/Vol] 49.7 ng/mL 30-100 [facility] Comment on above: VITAMIN D STATUS 25( [place])VITAMIN D RANGE (ng/mL) Deficient <20 Insufficient 20 to <30Sufficient 30 to 100Reference: Lucero MF,Charity NC, Soo ROUSE, et al. Evaluation,treatment, and prevention of vitamin D deficiency; an Endocrine Society clinical practice guideline. JCEM. 2010; 96(7):1911-30. Activated partial thrombopla stin time (aPTT) in platelet poor plasma by coagulation aOrdered By: Venkatesh Trammell on 11-08-2023 aPTT Coag (PPP) [Time] 28.4 s 25.1-36.5 [facility] Comment on above: A hematocrit value g reater than 55% may lead to inaccurate results in coagulation testing. Patients having hematocrit values >55% require a special collection tube for coagulation studies. Please contact the laboratory at [phone] for redraw instructions. Alanine aminotransferase [En zymatic activity/volume] in Serum or PlasmaOrdered By: Venkatesh Trammell on 11-08-2023 ALT [Catalytic activity/Vol] 26 U/L Normal 7-52 [facility] Comment on above: Performed By: #### C AION #### [facility] , #### HEPATIC, HS TROP, BMP, MG, PTT, CK, BNP, PT, CBC #### [facility] [address] [place] [address] [place] Albumin [Mass/volume] in Ser um or Plasma by Bromocresol green (BCG) dye binding methoOrdered By: Venkatesh Trammell on 11-08-2023 Albumin BCG dye [Mass/Vol] 3.1 g/dL Low 3.5-5.7 [facility] Alkaline phosphatase [Enzyma tic activity/volume] in Serum or PlasmaOrdered By: Venkatesh Trammell on 11-08-2023 ALP [Catalytic activity/Vol] 54 U/L Normal 34-104 [facility] Comment on above: Performed By: #### C AION #### [facility] , #### HEPATIC, HS TROP, BMP, MG, PTT, CK, BNP, PT, CBC #### [facility] [address] [place] [id number] [place] Aspartate aminotransferase [ Enzymatic activity/volume] in Serum or PlasmaOrdered By: Venkatesh Trammell on 11-08-2023 AST [Catalytic activity/Vol] 23 U/L Normal 13-39 [facility] Comment on above: Performed By: #### C AION #### [facility] , #### HEPATIC, HS TROP, BMP, MG, PTT, CK, BNP, PT, CBC #### [address] Automated basophil %Ordered By: Venkatesh Trammell on 11-08-2023 Basophils/100 WBC (Bld) 0.3 % Normal . [facility] Comment on above: Performed By: #### C AION #### [facility] , #### HEPATIC, HS TROP, BMP, MG, PTT, CK, BNP, PT, CBC #### [address] Automated basophil countOrde red By: Venkatesh Trammell on 11-08-2023 Basophils (Bld) [#/Vol] 0.0 10*3/uL Normal 0.0-0.2 [facility] Comment on above: Result Comment: PERF ORMED BY: [place] [address] PATHOLOGIST [employer] OPERATOR HELPER KOBE VENCES M.D. Performed By: #### C AION #### [facility] , #### HEPATIC, HS TROP, BMP, MG, PTT, CK, BNP, PT, CBC #### [address] Automated blood monocyte cou ntOrdered By: Venkatesh Trammell on 11-08-2023 Monocytes (Bld) [#/Vol] 0.7 10*3/uL Normal 0.0-0.8 [facility] Comment on above: Performed By: #### C AION #### [facility] , #### HEPATIC, HS TROP, BMP, MG, PTT, CK, BNP, PT, CBC #### [address] Automated eosinophil %Ordere d By: Venkatesh Trammell on 11-08-2023 Eosinophils/100 WBC (Bld) 1.3 % Normal . [facility] Comment on above: Performed By: #### C AION #### [facility] , #### HEPATIC, HS TROP, BMP, MG, PTT, CK, BNP, PT, CBC #### [facility] [address] Automated eosinophil countOr dered By: Venkatesh Trammell on 11-08-2023 Eosinophils (Bld) [#/Vol] 0.2 10*3/uL Normal 0.0-0.45 [facility] Comment on above: Performed By: #### C AION #### [facility] , #### HEPATIC, HS TROP, BMP, MG, PTT, CK, BNP, PT, CBC #### [facility] [address] [place] [address] Automated monocyte %Ordered By: Venkatesh Trammell on 11-08-2023 Monocytes/100 WBC (Bld) 4.7 % Normal . [facility] Comment on above: Performed By: #### C AION #### [facility] , #### HEPATIC, HS TROP, BMP, MG, PTT, CK, BNP, PT, CBC #### [address] Automated neutrophil %Ordere d By: Venkatesh Trammell on 11-08-2023 Neutrophils/100 WBC (Bld) 84.2 % Normal . [facility] Comment on above: Performed By: #### C AION #### [facility] , #### HEPATIC, HS TROP, BMP, MG, PTT, CK, BNP, PT, CBC #### [facility] [address] [place] [address] BNP ser/plasOrdered By: Roxy Trammell on 11-08-2023 Natriuretic peptide B (Bld) [Mass/Vol] 622.0 pg/mL High 5-100 [facility] Comment on above: Result Comment: PERF ORMED BY: [place] [address] PATHOLOGIST [employer] OPERATOR HELPER KOBE VENCES M.D. Performed By: #### G TASHA #### Point of Care testing , Bacteria [Presence] in Urine by AutomatedOrdered By: Venkatesh Trammell on 11-08-2023 Bacteria Auto Ql (U) Rare [HPF] None Seen [facility] Basic Metabolic Panelon Creatinine Clr Calc Pharmacy 19.45 Normal [facility] Comment on above: Performed By: #### C AION #### [facility] , #### HEPATIC, HS TROP, BMP, MG, PTT, CK, BNP, PT, CBC #### [address] GFR/1.73 sq M.predicted MDRD (S/P/Bld) [Vol rate/Area] 23.726 mL/min/{1.73_m2} Normal [facility] Comment on above: Performed By: #### C AION #### [facility] , #### HEPATIC, HS TROP, BMP, MG, PTT, CK, BNP, PT, CBC #### [facility] [address] [place] [address] Bilirubin Test strip Ql (U)O rdered By: Venkatesh Trammell on 11-08-2023 Bilirubin Ql (U) Negative Negative [facility] Bilirubin.direct [Mass/volum e] in Serum or PlasmaOrdered By: Venkatesh Trammell on 11-08-2023 Bilirubin.direct [Mass/Vol] 0.10 mg/dL 0.03-0.18 [facility] Bilirubin.total [Mass/volume ] in Serum or PlasmaOrdered By: Venkatesh Trammell on 11-08-2023 Bilirubin [Mass/Vol] 0.3 mg/dL Normal 0.3-1.0 [facility] Comment on above: Performed By: #### C AION #### [facility] , #### HEPATIC, HS TROP, BMP, MG, PTT, CK, BNP, PT, CBC #### [facility] [address] [place] [address] Calcium [Mass/volume] in 24 hour UrineOrdered By: Gina Poole on 11-08-2023 Calcium (24H U) [Mass/Vol] <0.8 mg/dL Not Estab. [facility] Comment on above: Performed at: [facility] - [facility] [address] [id number] Director: Percy Barragan PhD, Phone: [phone] Calcium [Mass/volume] in Ser um or PlasmaOrdered By: Venkatesh Trammell on 11-08-2023 Calcium [Mass/Vol] 4.0 mg/dL Off scale low 8.6-10.3 [facility] Comment on above: Critical Result Call ed to and read back by: JENNY OTERO at: 11/08/2023 12:42:16 by:[id number] Result Comment: Crit ical Result Called to and read back by: JENNY OTERO at: 11/08/2023 12:42:16 by:[id number] Performed By: #### C AION #### [facility] , #### HEPATIC, HS TROP, BMP, MG, PTT, CK, BNP, PT, CBC #### [facility] [address] [place] [address] Calcium, Urineon 11-08-2023 Calcium, Urine <0.8 Normal Not Estab. [facility] Comment on above: Order Comment: Comme nt add on to 11/07 urinarlysis Result Comment: Perf ormed at: [facility] - [facility] [id number] [place], [place] [id number] Animal Herder: Percy Barragan PhD, Phone: [phone] PERFORMED BY: [place] [address] PATHOLOGIST [employer] OPERATOR HELPER KOBE VENCES M.D. Performed By: #### C AION #### [facility] , #### HEPATIC, HS TROP, BMP, MG, PTT, CK, BNP, PT, CBC #### [facility] [address] [place] [address] Carbon dioxide, total [Moles /volume] in Serum or PlasmaOrdered By: Venkatesh Trammell on 11-08-2023 CO2 [Moles/Vol] 28.0 mmol/L Normal 21.0-31.0 [facility] Comment on above: Performed By: #### C AION #### [facility] , #### HEPATIC, HS TROP, BMP, MG, PTT, CK, BNP, PT, CBC #### [facility] [address] [place] [address] Chloride [Moles/volume] in S arti or PlasmaOrdered By: Venkatesh Trammell on 11-08-2023 Chloride [Moles/Vol] 92 mmol/L Low 98-107 [facility] Comment on above: Performed By: #### C AION #### [facility] , #### HEPATIC, HS TROP, BMP, MG, PTT, CK, BNP, PT, CBC #### [facility] [address] [place] [address] Color of Urine by AutoOrdere d By: Venkatesh Trammell on 11-08-2023 Color (U) Light-yellow Yellow [facility] Comment on above: Order Comment: Name Collection Type:: Voided Performed By: #### C AION #### [facility] , #### HEPATIC, HS TROP, BMP, MG, PTT, CK, BNP, PT, CBC #### [facility] [address] [place] [address] Complete Blood Count Auto Di ffon 11-08-2023 Mean Corpuscular HGB Conc 33.4 g/dL Normal 32.0-35.0 [facility] Comment on above: Performed By: #### C AION #### [facility] , #### HEPATIC, HS TROP, BMP, MG, PTT, CK, BNP, PT, CBC #### [facility] [address] [place] [address] Monocytes/100 WBC (Bld) 16.42 % Normal 0.00-20.00 [facility] Comment on above: Performed By: #### C AION #### [facility] , #### HEPATIC, HS TROP, BMP, MG, PTT, CK, BNP, PT, CBC #### [facility] [address] NRBC% 0.0 /100{WBC} Normal 0-0.5 [facility] Comment on above: Performed By: #### C AION #### [facility] , #### HEPATIC, HS TROP, BMP, MG, PTT, CK, BNP, PT, CBC #### [facility] [address] [place] [address] Creatine kinase [Enzymatic a ctivity/volume] in Serum or PlasmaOrdered By: Venkatesh Trammell on 11-08-2023 CK [Catalytic activity/Vol] 229 U/L High 30-223 [facility] Comment on above: Performed By: #### C AION #### [facility] , #### HEPATIC, HS TROP, BMP, MG, PTT, CK, BNP, PT, CBC #### [address] Creatinine [Mass/volume] in Serum or PlasmaOrdered By: Venkatesh Trammell on 11-08-2023 Creatinine [Mass/Vol] 2.14 mg/dL High 0.60-1.20 [facility] Comment on above: Performed By: #### C AION #### [facility] , #### HEPATIC, HS TROP, BMP, MG, PTT, CK, BNP, PT, CBC #### [address] Creatinine, Urine (Random)on 11-08-2023 Creatinine, Urine (Random) 25.00 mg/dL Normal [facility] Comment on above: Order Comment: Comme nt add on to 11/07 urinalysis Result Comment: No r eference range established PERFORMED BY: [place] [address] PATHOLOGIST [employer] OPERATOR HELPER KOBE VENCES M.D. Performed By: #### C AION #### [facility] , #### HEPATIC, HS TROP, BMP, MG, PTT, CK, BNP, PT, CBC #### [address] Dipstick and Microscopicon 0 11-08-2023 Bacteria,Urine Rare Normal None Seen [facility] Comment on above: Order Comment: Name Collection Type:: Voided Performed By: #### C AION #### [facility] , #### HEPATIC, HS TROP, BMP, MG, PTT, CK, BNP, PT, CBC #### [address] Bilirubin,Urine Negative Normal Negative [facility] Comment on above: Order Comment: Name Collection Type:: Voided Performed By: #### C AION #### [facility] , #### HEPATIC, HS TROP, BMP, MG, PTT, CK, BNP, PT, CBC #### [address] Budding Yeast,Urine 4+ High None Seen [facility] Comment on above: Order Comment: Name Collection Type:: Voided Result Comment: PERF ORMED BY: [place] [address] PATHOLOGIST [employer] OPERATOR HELPER KOBE VENCES M.D. Performed By: #### C AION #### [facility] , #### HEPATIC, HS TROP, BMP, MG, PTT, CK, BNP, PT, CBC #### [address] Glucose Ql (U) Normal Normal Normal [facility] Comment on above: Order Comment: Name Collection Type:: Voided Performed By: #### C AION #### [facility] , #### HEPATIC, HS TROP, BMP, MG, PTT, CK, BNP, PT, CBC #### [address] Hyaline Casts,Urine 0-8 Normal 0-8 [facility] Comment on above: Order Comment: Name Collection Type:: Voided Performed By: #### C AION #### [facility] , #### HEPATIC, HS TROP, BMP, MG, PTT, CK, BNP, PT, CBC #### [facility] [address] [place] [address] Mucus,Urine Rare Normal [facility] Comment on above: Order Comment: Name Collection Type:: Voided Performed By: #### C AION #### [facility] , #### HEPATIC, HS TROP, BMP, MG, PTT, CK, BNP, PT, CBC #### [address] Nitrite,Urine Negative Normal Negative [facility] Comment on above: Order Comment: Name Collection Type:: Voided Performed By: #### C AION #### [facility] , #### HEPATIC, HS TROP, BMP, MG, PTT, CK, BNP, PT, CBC #### [address] Occult Blood,Urine Negative Normal Negative [facility] Comment on above: Order Comment: Name Collection Type:: Voided Result Comment: PERF ORMED BY: [place] [address] PATHOLOGIST [employer] OPERATOR HELPER KOBE VENCES M.D. Performed By: #### C AION #### [facility] , #### HEPATIC, HS TROP, BMP, MG, PTT, CK, BNP, PT, CBC #### [address] Protein,Urine Trace High Negative [facility] Comment on above: Order Comment: Name Collection Type:: Voided Performed By: #### C AION #### [facility] , #### HEPATIC, HS TROP, BMP, MG, PTT, CK, BNP, PT, CBC #### [address] RBC,Urine 10-19 High 0-4 [facility] Comment on above: Order Comment: Name Collection Type:: Voided Performed By: #### C AION #### [facility] , #### HEPATIC, HS TROP, BMP, MG, PTT, CK, BNP, PT, CBC #### [address] Specificy [place],Urine 1.008 Normal 1.001-1.030 [facility] Comment on above: Order Comment: Name Collection Type:: Voided Performed By: #### C AION #### [facility] , #### HEPATIC, HS TROP, BMP, MG, PTT, CK, BNP, PT, CBC #### [address] Squamous Epithelial Cell,Urine 1-2 Normal 0-2 [facility] Comment on above: Order Comment: Name Collection Type:: Voided Performed By: #### C AION #### [facility] , #### HEPATIC, HS TROP, BMP, MG, PTT, CK, BNP, PT, CBC #### [address] Urobilinogen,Urine Normal Normal Normal [facility] Comment on above: Order Comment: Name Collection Type:: Voided Performed By: #### C AION #### [facility] , #### HEPATIC, HS TROP, BMP, MG, PTT, CK, BNP, PT, CBC #### [address] WBC CLUMP, Urine Occasional High None Seen [facility] Comment on above: Order Comment: Name Collection Type:: Voided Performed By: #### C AION #### [facility] , #### HEPATIC, HS TROP, BMP, MG, PTT, CK, BNP, PT, CBC #### [address] WBC,Urine 20-49 High 0-4 [facility] Comment on above: Order Comment: Name Collection Type:: Voided Performed By: #### C AION #### [facility] , #### HEPATIC, HS TROP, BMP, MG, PTT, CK, BNP, PT, CBC #### [address] ECG 12 lead ECGon 11-08-2023 ECG 12 lead ECG [facility] [address] [place] [address] Electrocardiograph Report Signed Patient: Kate Hagen MR#: [id number] 52 : 1950 Acct:[id number] Age/Sex: 72 / F ADM Date: 11/08/23 Loc: Room: [address] [place] [address] Type: ADM IN Attending Dr: Michelle Lock [...] has lengthened Confirmed by Venkatesh Trammell DO ([id number]) on 11/08/2023 7:29:15 PM Referred By: Electronically Signed By:Venkatesh Trammell DO Transcribed By: MUS Signed By Venkatesh Trammell DO 1928 Normal [facility] Epithelial cells.squamous [# /area] in Urine sediment by Automated countOrdered By: Venkatesh Trammell on 11-08-2023 Epithelial cells.squamous Auto (Urine sed) [#/Area] 1-2 [HPF] 0-2 [facility] Erythrocyte distribution wid th [Ratio] by Automated countOrdered By: Venkatesh Trammell on 11-08-2023 Erythrocyte distribution width (RBC) [Ratio] 17.4 % High 11.9-15.3 [facility] Comment on above: Performed By: #### C AION #### [facility] , #### HEPATIC, HS TROP, BMP, MG, PTT, CK, BNP, PT, CBC #### [facility] [address] [place] [address] [place] Erythrocytes [#/area] in Uri ne sediment by Automated countOrdered By: Venkatesh Trammell on 11-08-2023 RBC Auto (Urine sed) [#/Area] 10-19 [HPF] High 0-4 [facility] Erythrocytes [#/volume] in B lood by Automated countOrdered By: Venkatesh Trammell on 11-08-2023 RBC (Bld) [#/Vol] 3.18 10*6/uL Low 3.60-5.00 [facility] Comment on above: Performed By: #### C AION #### [facility] , #### HEPATIC, HS TROP, BMP, MG, PTT, CK, BNP, PT, CBC #### [facility] [address] [place] [id number] [facility] Glucose Poct Glucometerson 0 11-08-2023 Glucose [Mass/Vol] 225 mg/dL Normal [facility] Comment on above: Result Comment: [facility] [place][note 2] Glucose Reference Range is dependent on time and content of last meal. Glucose of more than 200 mg/dL in a nonstressed, ambulatory subject supports the diagnosis of Diabetes Mellitus. PERFORMED BY: [place] [address] PATHOLOGIST [employer] OPERATOR HELPER KOBE VENCES M.D. Performed By: #### C AION #### [facility] , #### HEPATIC, HS TROP, BMP, MG, PTT, CK, BNP, PT, CBC #### [facility] [address] [place] [address] [place] Glucose [Mass/volume] in Ser um or PlasmaOrdered By: Venkatesh Trammell on 11-08-2023 Glucose [Mass/Vol] 106 mg/dL High 70-100 [facility] Comment on above: ADA recommended refe rence rangeRandom Glucose Reference Range is dependent on time and content of last meal. Glucose of more than 200 mg/dL in a nonstressed, ambulatory subject supports the diagnosis of Diabetes Mellitus. Result Comment: [place] [facility] Glucose Reference Range is dependent on time and content of last meal. Glucose of more than 200 mg/dL in a nonstressed, ambulatory subject supports the diagnosis of Diabetes Mellitus. ADA recommended reference range Performed By: #### C AION #### [facility] , #### HEPATIC, HS TROP, BMP, MG, PTT, CK, BNP, PT, CBC #### [address] Glucose [Mass/volume] in Uri ne by Test stripOrdered By: Venkatesh Trammell on 11-08-2023 Glucose Test strip (U) [Mass/Vol] Normal mg/dL Normal [facility] Hematocrit [Volume Fraction] of Blood by Automated countOrdered By: Venkatesh Trammell on 11-08-2023 Hematocrit (Bld) [Volume fraction] 28.9 % Low 34.0-46.4 [facility] Comment on above: Performed By: #### C AION #### [facility] , #### HEPATIC, HS TROP, BMP, MG, PTT, CK, BNP, PT, CBC #### [address] Hemoglobin Test strip Ql (U) Ordered By: Venkatesh Trammell on 11-08-2023 Hemoglobin Ql (U) Negative Negative [facility] Hemoglobin [Mass/volume] in BloodOrdered By: Venkatesh Trammell on 11-08-2023 Hemoglobin (Bld) [Mass/Vol] 9.7 g/dL Low 11.8-15.4 [facility] Comment on above: Performed By: #### C AION #### [facility] , #### HEPATIC, HS TROP, BMP, MG, PTT, CK, BNP, PT, CBC #### [facility] [address] Hepatic Panelon 11-08-2023 Albumin [Mass/Vol] 3.1 g/dL Low 3.5-5.7 [facility] Comment on above: Performed By: #### C AION #### [facility] , #### HEPATIC, HS TROP, BMP, MG, PTT, CK, BNP, PT, CBC #### [facility] [address] Bilirubin,Indirect 0.2 mg/dL Normal [facility] Comment on above: Performed By: #### C AION #### [facility] , #### HEPATIC, HS TROP, BMP, MG, PTT, CK, BNP, PT, CBC #### [facility] [address] Bilirubin.indirect [Mass/Vol] 0.10 mg/dL Normal 0.03-0.18 [facility] Comment on above: Performed By: #### C AION #### [facility] , #### HEPATIC, HS TROP, BMP, MG, PTT, CK, BNP, PT, CBC #### [facility] [address] [place] [address] Hyaline casts [#/area] in Ur ine sediment by Automated countOrdered By: Venkatesh Trammell on 11-08-2023 Hyaline casts Auto (Urine sed) [#/Area] 0-8 [LPF] 0-8 [facility] INR in Platelet poor plasma by Coagulation assayOrdered By: Venkatesh Trammell on 11-08-2023 INR Coag (PPP) [Relative time] 1.4 {INR} [facility] Comment on above: INR Therapeutic Rang [...] 11-08-2023 Ionized Calcium <3.0 Low 4.5-5.6 [facility] Comment on above: Result Comment: Ve rified by repeat analysis Performed at: [facility] [id number] Animal Herder: Percy Barragan PhD, Phone: [phone] PERFORMED BY: [place] [address] PATHOLOGIST [employer] OPERATOR HELPER KOBE VENCES M.D. Performed By: #### G LULS #### Point of Care testing , Ketones [Presence] in Urine by Test stripOrdered By: Venkatesh Trammell on 11-08-2023 Ketones Ql (U) Negative Negative [facility] Comment on above: Order Comment: Name Collection Type:: Voided Performed By: #### C AION #### [facility] , #### HEPATIC, HS TROP, BMP, MG, PTT, CK, BNP, PT, CBC #### [address] Lactate [Moles/volume] in Se rum or PlasmaOrdered By: Michelle Lock on 11-08-2023 Lactate [Moles/Vol] 1.4 mmol/L 0.5-2.2 [facility] Comment on above: Result Comment: PERF ORMED BY: [place] [address] PATHOLOGIST [employer] OPERATOR HELPER KOBE VENCES M.D. Performed By: #### C AION #### [facility] , #### HEPATIC, HS TROP, BMP, MG, PTT, CK, BNP, PT, CBC #### [facility] [address] [place] [address] [place] Leukocyte clumps [Presence] in Urine by AutomatedOrdered By: Venkatesh Trammell on 11-08-2023 Leukocyte clumps Auto Ql (U) Occasional [LPF] High None Seen [facility] Leukocyte esterase [Presence ] in Urine by Test stripOrdered By: Venkatesh Trammell on 11-08-2023 Leukocyte esterase Test strip Ql (U) 3+ High Negative [facility] Comment on above: Order Comment: Name Collection Type:: Voided Performed By: #### C AION #### [facility] , #### HEPATIC, HS TROP, BMP, MG, PTT, CK, BNP, PT, CBC #### [facility] [address] [place] [address] [place] Leukocytes [#/area] in Urine sediment by Automated countOrdered By: Venkatesh Trammell on 11-08-2023 WBC Auto (Urine sed) [#/Area] 20-49 [HPF] High 0-4 [facility] Leukocytes [#/volume] correc loan for nucleated erythrocytes in Blood by Automated counOrdered By: Venkatesh Trammell on 11-08-2023 WBC corrected for nucl RBC Auto (Bld) [#/Vol] 14.5 10*3/uL High 3.8-11.6 [facility] Leukocytes [#/volume] in Blo od by Automated countOrdered By: Venkatesh Trammell on 11-08-2023 WBC (Bld) [#/Vol] 14.5 10*3/uL High 3.8-11.6 [facility] Comment on above: Performed By: #### C AION #### [facility] , #### HEPATIC, HS TROP, BMP, MG, PTT, CK, BNP, PT, CBC #### [facility] [address] [place] [address] [place] Lymphocytes [#/volume] in Bl ood by Automated countOrdered By: Venkatesh Trammell on 11-08-2023 Lymphocytes (Bld) [#/Vol] 1.4 10*3/uL Normal 1.00-4.8 [facility] Comment on above: Performed By: #### C AION #### [facility] , #### HEPATIC, HS TROP, BMP, MG, PTT, CK, BNP, PT, CBC #### [address] Lymphocytes/100 leukocytes i n Blood by Automated countOrdered By: Venkatesh Trammell on 11-08-2023 Lymphocytes/100 WBC (Bld) 9.5 % Normal . [facility] Comment on above: Performed By: #### C AION #### [facility] , #### HEPATIC, HS TROP, BMP, MG, PTT, CK, BNP, PT, CBC #### [address] MCH [Entitic mass] by Automa loan countOrdered By: Venkatesh Trammell on 11-08-2023 MCH (RBC) [Entitic mass] 30.4 pg Normal 24.7-34.3 [facility] Comment on above: Performed By: #### C AION #### [facility] , #### HEPATIC, HS TROP, BMP, MG, PTT, CK, BNP, PT, CBC #### [address] MCHC Auto (RBC) [Mass/Vol]Or dered By: Venkatesh Trammell on 11-08-2023 MCHC (RBC) [Mass/Vol] 33.4 g/dL 32.0-35.0 [facility] MCV [Entitic volume] by Auto mated countOrdered By: Venkatesh Trammell on 11-08-2023 MCV (RBC) [Entitic vol] 90.9 fL Normal 80-100 [facility] Comment on above: Performed By: #### C AION #### [facility] , #### HEPATIC, HS TROP, BMP, MG, PTT, CK, BNP, PT, CBC #### [address] Magnesium [Mass/volume] in S arti or PlasmaOrdered By: Venkatesh Trammell on 11-08-2023 Magnesium [Mass/Vol] 0.9 mg/dL Off scale low 1.9-2.7 [facility] Comment on above: Critical Result S_MG : Called to and read back by: JENNY OTERO at: 11/08/2023 12:42:16 by:[id number] Result Comment: Crit ical Result S_MG: Called to and read back by: JENNY OTERO at: 11/08/2023 12:42:16 by:[id number] PERFORMED BY: [place] [address] PATHOLOGIST [employer] OPERATOR HELPER KOBE VENCES M.D. Performed By: #### C AION #### [facility] , #### HEPATIC, HS TROP, BMP, MG, PTT, CK, BNP, PT, CBC #### [facility] [address] [place] [address] Monocyte distribution width [Entitic volume] in Blood by AutomatedOrdered By: Venkatesh Trammell on 11-08-2023 Monocyte distribution width Auto (Bld) [Entitic vol] 16.42 % 0.00-20.00 [facility] Mucus [Presence] in Urine by AutomatedOrdered By: Venkatesh Trammell on 11-08-2023 Mucus Auto Ql (U) Rare [LPF] [facility] Neutrophils [#/volume] in Bl ood by Automated countOrdered By: Venkatesh Trammell on 11-08-2023 Neutrophils (Bld) [#/Vol] 12.2 10*3/uL High 1.8-7.7 [facility] Comment on above: Performed By: #### C AION #### [facility] , #### HEPATIC, HS TROP, BMP, MG, PTT, CK, BNP, PT, CBC #### [facility] [address] [place] [address] Nitrite Test strip Ql (U)Ord ered By: Venkatesh Trammell on 11-08-2023 Nitrite Ql (U) Negative Negative [facility] No Panel InformationOrdered By: Venkatesh Trammell on 11-08-2023 Estimated GFR (CKD-EPI) 23.726 mL/Min [facility] Creatinine Clearance (Chem 19.45 [facility] Nucleated erythrocytes [Pres ence] in Blood by Automated countOrdered By: Venkatesh Trammell on 11-08-2023 Nucleated RBC Auto Ql (Bld) 0.0 /100{WBC} 0-0.5 [facility] Partial Thromboplastin Timeo n 11-08-2023 aPTT Coag (Bld) [Time] 28.4 s Normal 25.1-36.5 [facility] Comment on above: Result Comment: A he matocrit value greater than 55% may lead to inaccurate results in coagulation testing. Patients having hematocrit values >55% require a special collection tube for coagulation studies. Please contact the laboratory at [phone] for redraw instructions. PERFORMED BY: [place] [address] PATHOLOGIST [employer] OPERATOR HELPER KOBE VENCES M.D. Performed By: #### G LULS #### Point of Care testing , Platelet mean volume [Entiti c volume] in Blood by Automated countOrdered By: Venkatesh Trammell on 11-08-2023 Platelet mean volume (Bld) [Entitic vol] 7.3 fL Normal 6.3-10.7 [facility] Comment on above: Performed By: #### C AION #### [facility] , #### HEPATIC, HS TROP, BMP, MG, PTT, CK, BNP, PT, CBC #### [facility] [address] [place] [address] [place] Platelets [#/volume] in Bloo d by Automated countOrdered By: Venkatesh Trammell on 11-08-2023 Platelets (Bld) [#/Vol] 184 10*3/uL Normal 150-450 [facility] Comment on above: Performed By: #### C AION #### [facility] , #### HEPATIC, HS TROP, BMP, MG, PTT, CK, BNP, PT, CBC #### [facility] [address] Potassium [Moles/volume] in Serum or PlasmaOrdered By: Venkatesh Trammell on 11-08-2023 Potassium [Moles/Vol] 3.2 mmol/L Low 3.5-5.1 [facility] Comment on above: Performed By: #### C AION #### [facility] , #### HEPATIC, HS TROP, BMP, MG, PTT, CK, BNP, PT, CBC #### [address] Protein Test strip (U) [Mass /Vol]Ordered By: Venkatesh Trammell on 11-08-2023 Protein (U) [Mass/Vol] Trace mg/dL High Negative [facility] Protein [Mass/volume] in Ser um or PlasmaOrdered By: Venkatesh Trammell on 11-08-2023 Protein [Mass/Vol] 5.9 g/dL Low 6.4-8.9 [facility] Comment on above: Performed By: #### C AION #### [facility] , #### HEPATIC, HS TROP, BMP, MG, PTT, CK, BNP, PT, CBC #### [address] Prothrombin time (PT)Ordered By: Venkatesh Trammell on 11-08-2023 PT Coag (PPP) [Time] 16.4 s High 9.0-12.9 [facility] Comment on above: A hematocrit value g reater than 55% may lead to inaccurate results in coagulation testing. Patients having hematocrit values >55% require a special collection tube for coagulation studies. Please contact the laboratory at [phone] for redraw instructions. Result Comment: A he matocrit value greater than 55% may lead to inaccurate results in coagulation testing. Patients having hematocrit values >55% require a special collection tube for coagulation studies. Please contact the laboratory at [phone] for redraw instructions. Performed By: #### G LULS #### Point of Care testing , Serum globulin measurement b y calculation (mass/volume)Ordered By: Venkatesh Trammell on 11-08-2023 Globulin (S) [Mass/Vol] 2.8 g/dL [facility] Comment on above: Performed By: #### C AION #### [facility] , #### HEPATIC, HS TROP, BMP, MG, PTT, CK, BNP, PT, CBC #### [address] Serum ionized calcium measur ement using ion specific electrode (mass/volume)Ordered By: Venkatesh Trammell on 11-08-2023 Calcium.ionized ISE [Mass/Vol] <3.0 mg/dL Low 4.5-5.6 [facility] Comment on above: Verified by repeat analysisPerformed at: [facility] [place] [id number] Director: Percy Barragan PhD, Phone: [phone] Serum or plasma albumin/glob ulin mass ratioOrdered By: Venkatesh Trammell on 11-08-2023 Albumin/Globulin [Mass ratio] 1.1 {ratio} [facility] Comment on above: Performed By: #### C AION #### [facility] , #### HEPATIC, HS TROP, BMP, MG, PTT, CK, BNP, PT, CBC #### [address] Serum or plasma anion gap de terminationOrdered By: Venkatesh Trammell on 11-08-2023 Anion gap [Moles/Vol] 18.2 mmol/L High 6.0-15.0 [facility] Comment on above: Performed By: #### C AION #### [facility] , #### HEPATIC, HS TROP, BMP, MG, PTT, CK, BNP, PT, CBC #### [facility] [address] [place] [address] Serum or plasma non-glucuron idated bilirubin measurement (mass/volume)Ordered By: Venkatesh Trammell on 11-08-2023 Bilirubin.indirect [Mass/Vol] 0.2 mg/dL [facility] Sodium [Moles/volume] in Ser um or PlasmaOrdered By: Venkatesh Trammell on 11-08-2023 Sodium [Moles/Vol] 135 mmol/L Low 136-145 [facility] Comment on above: Performed By: #### C AION #### [facility] , #### HEPATIC, HS TROP, BMP, MG, PTT, CK, BNP, PT, CBC #### [address] Sodium [Moles/volume] in Uri neOrdered By: Gina Poole on 11-08-2023 Sodium (U) [Moles/Vol] 75.0 mmol/L [facility] Comment on above: No reference range e stablished Order Comment: Comme nt add on to 11/07 urinalysis Result Comment: No r eference range established Performed By: #### C AION #### [facility] , #### HEPATIC, HS TROP, BMP, MG, PTT, CK, BNP, PT, CBC #### [address] Specific gravity Test strip (U) [Rel density]Ordered By: Venkatesh Trammell on 11-08-2023 Specific gravity (U) [Rel density] 1.008 1.001-1.030 [facility] Troponin I High Sensitivityo n 11-08-2023 Troponin I High Sensitivity 15.9 pg/mL High 0.0-15.0 [facility] Comment on above: Result Comment: PERF ORMED BY: [place] [address] PATHOLOGIST [employer] OPERATOR HELPER KOBE VENCES M.D. Performed By: #### C AION #### [facility] , #### HEPATIC, HS TROP, BMP, MG, PTT, CK, BNP, PT, CBC #### [facility] [address] [place] [address] Troponin I.cardiac [Mass/vol ume] in Serum or Plasma by Detection limit <= 0.01 ng/Ordered By: Venkatesh Trammell on 11-08-2023 Troponin I.cardiac DL <= 0.01 ng/mL [Mass/Vol] 15.9 pg/mL High 0.0-15.0 [facility] Urea nitrogen [Mass/volume] in Serum or PlasmaOrdered By: Venkatesh Trammell on 11-08-2023 Urea nitrogen [Mass/Vol] 39 mg/dL High 7-25 [facility] Comment on above: Performed By: #### C AION #### [facility] , #### HEPATIC, HS TROP, BMP, MG, PTT, CK, BNP, PT, CBC #### [facility] [address] [place] [address] Urine Cultureon 11-08-2023 Bacteria identified Cx Nom (U) ORGANISM: Carolee glabrata (O:CANGLA) [place] Count >100,000 PERFORMED BY: [place] [address] PATHOLOGIST [employer] OPERATOR HELPER KOBE VENCES M.D. Normal [facility] Comment on above: Performed By: #### C AION #### [facility] , #### HEPATIC, HS TROP, BMP, MG, PTT, CK, BNP, PT, CBC #### [facility] [address] [place] [address] Urine appearanceOrdered By: Venkatesh Trammell on 11-08-2023 Appearance (U) Clear Clear [facility] Comment on above: Order Comment: Name Collection Type:: Voided Performed By: #### C AION #### [facility] , #### HEPATIC, HS TROP, BMP, MG, PTT, CK, BNP, PT, CBC #### [facility] [address] [place] [address] Urine culture routineOrdered By: Venkatesh Trammell on 11-08-2023 Bacteria identified Cx Nom (U) Carolee glabrata Abnormal [facility] Urobilinogen Test strip (U) [Mass/Vol]Ordered By: Venkatesh Trammell on 11-08-2023 Urobilinogen (U) [Mass/Vol] Normal mg/dL Normal [facility] XR chest 1V portableon 11-07 XR chest 1V portable [facility] [place] [address] [place] [address] XRay Report Signed Patient: Kate Hagen MR#: [id number] 52 : 1950 Acct:[id number] Age/Sex: 72 / F ADM Date: 11/08/23 [...] Candace Godfrey M.D.11/08/2023 1:25 PM Dictation Location: [place] [address] Transcribed By: [facility] 11/08/23 1325 Dictated By: Candace Godfrey II, MD 11/08/23 1323 Signed By: 11/08/23 1325 Normal [facility] Yeast.budding [Presence] in Urine by Computer assisted methodOrdered By: Venkatesh Trammell on 11-08-2023 Yeast.budding Computer assisted Ql (U) 4+ [HPF] High None Seen [facility] pH of Urine by Test stripOrd ered By: Venkatesh Trammell on 11-08-2023 pH (U) 5.0 [pH] 5.0-9.0 [facility] Comment on above: Order Comment: Name Collection Type:: Voided Performed By: #### C AION #### [facility] , #### HEPATIC, HS TROP, BMP, MG, PTT, CK, BNP, PT, CBC #### [facility] [address] [place] [id number] [facility] Patient Educationon 09-09-19 Patient Education Obstetrics and [...] this condition includes: ? Antibiotic medicine. ? Xnpz-jxq-smtrpbt medicines to treat discomfort. ? Drinking enough [...] these instructions at home: Medicines ? Take tlhg-ddn-rklaass and prescription medicines only as told by [...] Revie (more content not included)... Normal [facility] Urology Office/Clinic Noteon 09-09-2023 Urology Office/Clinic [...] with voice recognition artificial intelligence software, specifically [employer], [employer] and or [employer]. Substitutions may have occurred due to the [...] 2 weeks [1] Patient continues to take tnzx-sfu-cflszrs preventative supplements-cranberry, probiotics. She is using vaginal [...] 1.83, e (more content not included)... Normal [facility] Comment on above: Result Comment: Elec tronically Signed By: NICOLA Pittman APRN, Shaye Pires\.br\Date and Time Signed: 09/09/23 10:34 EDT Patient Instructionson 09-07 Supervisor Sleeping Bag Department Authentication Interface Message Text You are doing excellent. Return to see me at 1 year from surgery Normal [facility] Progress Noteson 09-08-2023 Supervisor Sleeping Bag Department Authentication Interface Message Text Patient seen examined. [...] of her questions were answered. Normal [facility] XR FEMUR RIGHT MINIMUM 2 VIE WSon 09-08-2023 XR FEMUR RIGHT MINIMUM 2 VIEWS EXAMINATION: XR FEMUR RIGHT MINIMUM 2 VIEWSPRO/RT 09/08/2023 12:32 PM CLINICAL HISTORY: fu ASSOCIATED DIAGNOSIS: Closed displaced intertrochanteric fracture of right femur, initial encounter ([facility]) ORDERING PROVIDER: KAYDEN LEE TECHNEARLE NOTE: COMPARISON: XR FEMUR RIGHT MINIMUM 2 VIEWS 07/07/2023, 12:52 PM IMPRESSION: Comparison with the previous studies shows no change in position or alignment of the previously described right femur fracture. There is slight maturation of callus formation consistent with progression in healing. Hardware is intact without signs of loosening. Right femur MACRO: None Normal [facility] [employer] XR Femur - right 2 Viewson 0 09-08-2023 EXAMINATION: XR FEMU R RIGHT MINIMUM 2 VIEWSPRO/RT 09/08/2023 12:32 PM CLINICAL HISTORY: fu ASSOCIATED DIAGNOSIS: Closed displaced intertrochanteric fracture of right femur, initial encounter ([facility]) ORDERING PROVIDER: KAYDEN LEE TECHNEARLE NOTE: [...] of right femur, initial encounter ([facility]) ORDERING PROVIDER: KAYDEN LEE TECHNEARLE NOTE: COMPARISON: XR FEMUR RIGHT MINIMUM 2 VIEWS 07/07/2023, 12:52 PM IMPRESSION: Comparison with the previous studies shows no change in position or alignment of the previously described right femur fracture. There is slight maturation of callus formation consistent with progression in healing. Hardware is intact without signs of loosening. Right femur MACRO: None [facility] Radiology Study observation (narrative) [employer] XR Femur - right 2 ViewsOrde red By: Fabian Ayala on 09-08-2023 [employer] Work Phone: XR HIP RIGHT W/ PELVIS MIN 2 -3 VIEWSon 09-08-2023 XR HIP RIGHT W/ PELVIS MIN 2-3 VIEWS EXAMINATION: XR HIP RIGHT W/ PELVIS MIN 2-3 VIEWSPRO/RT 09/08/2023 12:32 PM CLINICAL HISTORY: fu or pain ASSOCIATED DIAGNOSIS: Closed displaced intertrochanteric fracture of right femur, initial encounter ([facility]) ORDERING PROVIDER: KAYDEN SMALLS NOTE: COMPARISON: XR PELVIS SINGLE VIEW 07/07/2023, [...] fracture. Right hip MACRO: None Normal [facility] XR Pelvis and Hip - right Vi ewson 09-08-2023 EXAMINATION: XR HIP RIGHT W/ PELVIS MIN 2-3 VIEWSPRO/RT 09/08/2023 12:32 PM CLINICAL HISTORY: fu or pain ASSOCIATED DIAGNOSIS: Closed displaced intertrochanteric fracture of right femur, initial encounter ([facility]) ORDERING PROVIDER: KAYDEN LEE TECHNEARLE NOTE: [...] of right femur, initial encounter ([facility]) ORDERING PROVIDER: KAYDEN LEE TECHNEARLE NOTE: [...] previously described fracture. Right hip MACRO: None [facility] Radiology Study observation (narrative) [facility] Ambulatory Visit Summaryon 0 09-07-2023 Ambulatory [...] XIE, Jacqui Nieves Where: [facility] Normal [facility] Progress Noteson 08-23-2023 Supervisor Sleeping Bag Department Authentication Interface Message Text Teaching Physician Note: [...] pain. No operative intervention required given appropriate jain of function. Follow up with dentistry for denture adjustment. Meng Leos DMD, MD Normal [facility] Progress Noteson 08-19-2023 Supervisor Sleeping Bag Department Authentication Interface Message Text [facility] [...] is properly healing. Assessment / Diagnosis: Edentulous [105259] Normal post operative course Normal postoperative course. [...] symptoms appear. Emma Zamudio DDS Normal [facility] Progress Noteson 08-18-2023 Supervisor Sleeping Bag Department Authentication Interface Message Text Normal [facility] BASIC METABOLIC PANLon 08-10 Anion gap [Moles/Vol] 15 mmol/L Normal 5-15 [facility] Comment on above: Performed By: #### B MP #### [facility] ([id number]) [address], [address] [place] [address] Calcium [Mass/Vol] 7.4 mg/dL Low 8.5-10.5 [facility] Comment on above: Performed By: #### B MP #### [facility] ([id number]) [address], [address] [place] [address] Chloride [Moles/Vol] 100 mmol/L Normal 98-[address] [facility] Comment on above: Performed By: #### B MP #### [facility] ([id number]) [address], [address] [place] [address] CO2 [Moles/Vol] 29 mmol/L Normal 22-32 [facility] Comment on above: Performed By: #### B MP #### [facility] ([id number]) [address], [address] [place] [address] Creatinine [Mass/Vol] 3.89 mg/dL High 0.40-1.00 [facility] Comment on above: Result Comment: METH OD TRACEABLE TO IDMS STANDARD Performed By: #### B MP #### [facility] ([id number]) [address], [address] [place] [address] GFR/1.73 sq M.predicted among non-blacks MDRD (S/P/Bld) [Vol rate/Area] 12 mL/min/{1.73_m2} Low >59 [facility] Comment on above: Result Comment: Reported eGFR is based on the CKD-EPI 2020 equation that does not use a race coefficient. Performed By: #### B MP #### [facility] ([id number]) [address] [address] [place] [address] Glucose [Mass/Vol] 76 mg/dL Normal 65-99 [facility] Comment on above: Performed By: #### B MP #### [facility] ([id number]) [address] [facility] [address] [place] [address] Potassium [Moles/Vol] 3.8 mmol/L Normal 3.5-5.0 [facility] Comment on above: Performed By: #### B MP #### [facility] ([id number]) [address] [address] [place] [address] Sodium [Moles/Vol] 144 mmol/L Normal 134-146 [facility] Comment on above: Performed By: #### B MP #### [facility] ([id number]) [address] [address] Urea nitrogen [Mass/Vol] 95 mg/dL High 5-27 [facility] Comment on above: Performed By: #### B MP #### [facility] ([id number]) [address] [address] [place] [address] XR FEMUR RIGHT MINIMUM 2 VIE WSon 07-08-2023 XR FEMUR RIGHT MINIMUM 2 VIEWS EXAMINATION: XR FEMUR RIGHT MINIMUM 2 VIEWSPRO/RT 07/07/2023 12:51 PM CLINICAL HISTORY: fu ASSOCIATED DIAGNOSIS: Closed displaced intertrochanteric fracture of right femur, initial encounter ([facility]) ORDERING PROVIDER: KAYDEN LEE TECHNOLOGISTS NOTE: COMPARISON: XR FEMUR RIGHT MINIMUM 2 VIEWS 06/09/2023, 8:34 AM IMPRESSION: Comparison with the previous studies shows no change in position or alignment of the previously described right femur fracture. There is slight maturation of callus formation consistent with progression in healing. Hardware is intact without signs of loosening. Right femur MACRO: None Normal [facility] XR Femur - right 2 Viewson 0 07-08-2023 EXAMINATION: XR FEMU R RIGHT MINIMUM 2 VIEWSPRO/RT 07/07/2023 12:51 PM CLINICAL HISTORY: fu ASSOCIATED DIAGNOSIS: Closed displaced intertrochanteric fracture of right femur, initial encounter ([facility]) ORDERING PROVIDER: KAYDEN LEE TECHNEARLE NOTE: [...] of right femur, initial encounter ([facility]) ORDERING PROVIDER: KAYDEN LEE TECHNEARLE NOTE: COMPARISON: XR FEMUR RIGHT MINIMUM 2 VIEWS 06/09/2023, 8:34 AM IMPRESSION: Comparison with the previous studies shows no change in position or alignment of the previously described right femur fracture. There is slight maturation of callus formation consistent with progression in healing. Hardware is intact without signs of loosening. Right femur MACRO: None [facility] Work Phone: [facility] [employer] [facility] Work Phone: XR PELVIS SINGLE VIEWon 03-0 XR PELVIS SINGLE VIEW EXAMINATION: XR PE LVIS SINGLE VIEW 07/07/2023 12:51 PM CLINICAL HISTORY: pain or f/u ASSOCIATED DIAGNOSIS: Closed displaced intertrochanteric fracture of right femur, initial encounter ([facility]) ORDERING PROVIDER: KAYDEN LEE TECHNEARLE NOTE: [...] IMPRESSION: Stable examination. MACRO: None Normal [facility] XR Pelvis Single viewon EXAMINATION: XR PELV IS SINGLE VIEW 07/07/2023 12:51 PM CLINICAL HISTORY: pain or f/u ASSOCIATED DIAGNOSIS: Closed displaced intertrochanteric fracture of right femur, initial encounter ([facility]) ORDERING PROVIDER: KAYDEN LEE TECHNOLOGISTS NOTE: [...] or dislocation. IMPRESSION: Stable examination. MACRO: None RADIOLOGY Darwin Toribio MD - 07/08/2023 EXAMINATION: XR PELVIS SINGLE VIEW 07/07/2023 12:51 PM CLINICAL HISTORY: pain or f/u ASSOCIATED DIAGNOSIS: Closed displaced intertrochanteric fracture of right femur, initial encounter ([facility]) ORDERING PROVIDER: KAYDEN LEE TECHNOLOGISTS NOTE: [...] dislocation. IMPRESSION: Stable examination. MACRO: None [facility] [employer] [facility] Work Phone: XR Pelvis Single viewOrdered By: Darwin Toribio on 07-08-2023 [facility] [employer] [facility] Work Phone: Patient Instructionson 07-06 Supervisor Sleeping Bag Department Authentication Interface Message Text Your fracture remains well aligned. I expect that your knee pain is from a combination of pain from your hip joint as well as some muscular imbalance from your injury. Continue to work with physical therapy on this. Return to see me in 2 months. Normal [facility] Progress Noteson 07-07-2023 Supervisor Sleeping Bag Department Authentication Interface Message Text Patient returns for [...] see me in 2 months. Normal [facility] XR Femur - right 2 Viewson 0 07-07-2023 Radiology Study observation (narrative) [facility] [employer] [facility] Work Phone: XR Pelvis Single viewon 030 Radiology Study observation (narrative) [facility] [employer] [facility] Work Phone: ALL BASIC METABOLIC PANELon 06-16-2023 Anion gap [Moles/Vol] 11.3 mmol/L [facility] Calcium [Mass/Vol] 9.0 mg/dL 8.5 - [...] [Mass/Vol] 104 mg/dL 74 - 106 mg/dL [facility] Interpretation and review of laboratory results Abnormal [facility] Potassium [Moles/Vol] 4.2 mmol/L 3.5 - 5.1 mmol/L [facility] Sodium [Moles/Vol] 142 mmol/L 136 - 145 mmol/L [facility] TBH EGFR-NON AF ANGUILLAN 22 Low 60 - PINF [facility] Urea nitrogen [Mass/Vol] 55.0 mg/dL High 7.0 - 18.0 mg/dL [facility] Urea nitrogen/Creatinine [Mass ratio] 25.0 mg/mg [facility] Telephone Encounteron 2023 Supervisor Sleeping Bag Department Authentication Interface Message Text What is the need: Medicare TOC SNF Review Situation: Patient approaching the 30 day readmission period Background: Attending Meng Whitaker MD Date of Admission 05/13/2023 Date of Discharge 05/18/2023 [facility] OF TRAUMA SURGERY FINAL DIAGNOSES: Hospital Problems as of 05/18/2023 * (Principal) H/O traumatic fracture Assessment: Reviewed careport patient remains in SNF 05/18/2023 7:35 PM [facility] ([facility]) Recommendation: continue [facility] SNF Review Program closed at this time Normal [facility] ALL BASIC METABOLIC PANELon 06-14-2023 Anion gap [Moles/Vol] 9.3 mmol/L [facility] Calcium [Mass/Vol] 9.1 mg/dL 8.5 - 10. 1 mg/dL [facility] Chloride [Moles/Vol] 98 mmol/L 98 - 10 7 mmol/L [facility] CO2 [Moles/Vol] 35.7 mmol/L High 21.0 - 32.0 mmol/L [facility] Creatinine [Mass/Vol] 2.27 mg/dL High 0.55 - 1.02 mg/dL [facility] GFR/1.73 sq M.predicted CKD-EPI (S/P/Bld) [Vol rate/Area] 26 Low 60 - PINF [facility] Glucose [Mass/Vol] 108 mg/dL High 74 - 106 mg/dL [facility] Interpretation and review of laboratory results Abnormal [facility] Potassium [Moles/Vol] 4.0 mmol/L 3.5 - 5.1 mmol/L [facility] Sodium [Moles/Vol] 139 mmol/L 136 - 145 [facility]/L [facility] EGFR-NON AF ANGUILLAN 21 Low 60 - PINF [facility] Urea nitrogen [Mass/Vol] 78.0 mg/dL Critically high 7.0 - 18.0 mg/dL [facility] Comment on above: RESULTS CALLED TO FANNIE STALEY LPN @BY Iwona Goff at 1039 Urea nitrogen/Creatinine [Mass ratio] 34.4 mg/mg [facility] Research [facility] 06-14-2023 Supervisor Sleeping Bag Department Authentication Interface Message Text ..Documentation of Human Investigation Informed Consent Process Informed Consent (Adult) IRB Screening/Consent Visit for study: Post Market Clinical Evaluation of Gamma 4: Prospective, Multicenter, Follow Up Study (MILEY) PI Dr. Colt Live SHORT TITLE: MILEY PI CONTACT NUMBER [phone] BOX TOE CEMENTER Giovanna Serrano PHONE [phone] The above research study consent was explained [...] Time of informed consent 9:45am Normal [facility] ALL HGB HCTon 06-11-2023 Hematocrit (Bld) [Volume fraction] 27.3 % Low 36.0 - 48.0 % [facility] Hemoglobin (Bld) [Mass/Vol] 9.0 g/dL Low 12.0 - 16.0 g/dL [facility] Interpretation and review of laboratory results Abnormal [facility] Patient Instructionson 06-09 Supervisor Sleeping Bag Department Authentication Interface Message Text Weight bearing: weight [...] Dr. James Noriega who sees patients at [facility] Progress Noteson 06-09-2023 Supervisor Sleeping Bag Department Authentication Interface Message Text Doing well overall. Has had difficulties ambulating for months prior to fall. Has not been worked up much. Bilateral foot drop which was new in the past few months but present prior to surgery. Recommended she see neurology or spine surgeon near her [place]. They are closer to [facility] and 1.5 hrs from here. They would prefer to see someone at [facility]. On eliquis. Incisions well healed. Ambulating [...] Dr. James Noriega who sees patients at [facility] XR FEMUR RIGHT MINIMUM 2 VIE WSon 06-09-2023 XR FEMUR RIGHT MINIMUM 2 VIEWS EXAMINATION: XR FEMUR RIGHT MINIMUM 2 VIEWSPRO/RT 06/09/2023 08:28 AM CLINICAL HISTORY: fu ASSOCIATED DIAGNOSIS: Closed displaced intertrochanteric fracture of right femur, initial encounter ([facility]) ORDERING PROVIDER: KAYDEN LEE TECHNEARLE NOTE: COMPARISON: None IMPRESSION: Threaded nail intramedullary ramon with distal screw fixation provides ORIF for previously noted comminuted intratrochanteric fracture. Overall alignment is nearly anatomic. Hardware is intact. Underlying osteopenia. Right femur MACRO: None Normal [facility] XR Femur - right 2 Viewson 0 2-07-2024 EXAMINATION: XR FEMU R RIGHT MINIMUM 2 VIEWSPRO/RT 06/09/2023 08:28 AM CLINICAL HISTORY: fu ASSOCIATED DIAGNOSIS: Closed displaced intertrochanteric fracture of right femur, initial encounter ([facility]) ORDERING PROVIDER: KAYDEN SMALLS NOTE: COMPARISON: [...] of right femur, initial encounter ([facility]) ORDERING PROVIDER: KAYDEN SMALLS NOTE: COMPARISON: None IMPRESSION: Threaded nail intramedullary ramon with distal screw fixation provides ORIF for previously noted comminuted intratrochanteric fracture. Overall alignment is nearly anatomic. Hardware is intact. Underlying osteopenia. Right femur MACRO: None [facility] Radiology Study observation (narrative) [facility] XR HIP RIGHT W/ PELVIS MIN 2 -3 VIEWSon 06-09-2023 XR HIP RIGHT W/ PELVIS MIN 2-3 VIEWS EXAMINATION: XR HIP RIGHT W/ PELVIS MIN 2-3 VIEWSPRO/RT 06/09/2023 08:18 AM CLINICAL HISTORY: fu or pain ASSOCIATED DIAGNOSIS: Closed displaced intertrochanteric fracture of right femur, initial encounter ([facility]) ORDERING PROVIDER: KAYDEN LEE TECHNEARLE NOTE: [...] history. Right hip MACRO: None Normal [facility] XR Pelvis and Hip - right Vi ewson 06-09-2023 EXAMINATION: XR HIP RIGHT W/ PELVIS MIN 2-3 VIEWSPRO/RT 06/09/2023 08:18 AM CLINICAL HISTORY: fu or pain ASSOCIATED DIAGNOSIS: Closed displaced intertrochanteric fracture of right femur, initial encounter ([facility]) ORDERING PROVIDER: KAYDEN LEE TECHNEARLE NOTE: [...] of right femur, initial encounter ([facility]) ORDERING PROVIDER: KAYDEN LEE TECHNEARLE NOTE: COMPARISON: XR HIP RIGHT W/ PELVIS MIN 2-3 VIEWS 05/14/2023, 3:51 AM FINDINGS: IMPRESSION: Status post ORIF right intratrochanteric fracture. Email intramedullary ramon device. Alignment is essentially anatomic. Underlying osteopenia. 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 Surgical clips-presumably from cholecystectomy-correlate with history. Right hip MACRO: None [facility] [place] [facility] Radiology Study observation (narrative) [facility] XR Pelvis and Hip - right Vi ewsOrdered By: Gina Ruiz on 06-09-2023 [facility] [place] [facility] Work Phone: Telephone Encounteron 2023 Supervisor Sleeping Bag Department Authentication Interface Message Text Pt unable to make 2/7 appt needs rescheduled please call facility at [phone] to reschedule can be any day after 9 am. Normal The [facility] Telephone Encounteron 2023 Supervisor Sleeping Bag Department Authentication Interface Message Text What is the need: Medicare PHU SNF Review Situation: Patient within the 30 day readmission period Background: Attending Meng Whitaker MD Date of Admission 05/13/2023 Date of Discharge 05/18/2023 [facility] OF TRAUMA SURGERY FINAL DIAGNOSES: Hospital Problems as of 05/18/2023 * (Principal) H/O traumatic fracture Assessment: Reviewed [facility] patient remains in SNF 05/18/2023 7:35 PM EST [facility] ([facility]) Recommendation: continue PHU SNF Review Process Normal [facility] Supervisor Sleeping Bag Department Authentication Interface Message Text Situation: F/U w [facility] Background: [facility] calling to schedule Pt for F/U w [facility]. Pt seen in ED by [facility] on 05/13/23. ED discharge instructed F/U w provider [facility]. Basia would like office to contact at earliest convenience to get Pt scheduled. Assessment: Please assist Recommendation: Basia can be reached at [phone] Normal [facility] Telephone Encounteron 2023 Supervisor Sleeping Bag Department Authentication Interface Message Text What is the need: Medicare PHU SNF Review Situation: Patient within the 30 day readmission period Background: Attending Meng Whitaker MD Date of Admission 05/13/2023 Date of Discharge 05/18/2023 [facility] OF TRAUMA SURGERY FINAL DIAGNOSES: Hospital Problems as of 05/18/2023 * (Principal) H/O traumatic fracture Assessment: Reviewed [facility] patient remains in SNF 05/18/2023 7:35 PM [facility] ([facility]) Recommendation: continue PHU SNF Review Process Elmo Allen RN Normal [facility] Telephone Encounteron 2023 Supervisor Sleeping Bag Department Authentication Interface Message Text Patient discharged to a SNF Name of SNF: [facility] Phone number: [phone] Patient enrolled in [facility] to begin discharge review Normal [facility] BASIC METABOLIC PANELon 05-03 Anion gap [Moles/Vol] 18 mmol/L Normal 10-20 [facility] Comment on above: Performed By: #### 8 1244 #### NURSING GLUCOSE PROGRAM [address] [place], [address] Calcium [Mass/Vol] 9.1 mg/dL Normal 8.6-10.3 [facility] Comment on above: Result Comment: Note updated reference ranges. Performed By: #### 8 2796 #### NURSING GLUCOSE PROGRAM [address] [place], [address] Chloride [Moles/Vol] 100 mmol/L Normal 98-107 [facility] Comment on above: Result Comment: Note updated reference ranges. Performed By: #### 8 2948 #### NURSING GLUCOSE PROGRAM [address] [place], [address] CO2 [Moles/Vol] 25 mmol/L Normal 21-31 [facility] Comment on above: Result Comment: Note updated reference ranges. Performed By: #### 8 2948 #### NURSING GLUCOSE PROGRAM [address] [place], [address] Creatinine [Mass/Vol] 2.06 mg/dL High 0.60-1.20 [facility] Comment on above: Result Comment: Note updated reference ranges. Performed By: #### 8 2948 #### NURSING GLUCOSE PROGRAM [address] [place], [address] ESTIMATED GFR (CKD-EPI) 25 mL/min/1.73sqm Low >=60 [facility] Comment on above: Result Comment: 2020 [...] Inclusion of Race in Diagnosing Kidney Disease. [place] Journal of Kidney Diseases 2021;79(2):268-88.e1. 2. N Engl J Med 1 Vol. 385 Issue 19 Pages 7894-3894 Performed By: #### 8 2948 #### NURSING GLUCOSE PROGRAM [address] [place], [address] Glucose [Mass/Vol] 109 mg/dL Normal 74-109 [facility] Comment on above: Performed By: #### 8 2948 #### NURSING GLUCOSE PROGRAM [address] [place], [address] Potassium [Moles/Vol] 4.0 mmol/L Normal 3.5-5.0 [facility] Comment on above: Result Comment: Note updated reference ranges. Note updated reference ranges. Performed By: #### 8 2948 #### NURSING GLUCOSE PROGRAM [address] [facility] [place], [address] Sodium [Moles/Vol] 139 mmol/L Normal 136-145 [facility] Comment on above: Result Comment: Note updated reference ranges. Performed By: #### 8 2948 #### NURSING GLUCOSE PROGRAM [address] [place], [address] Urea nitrogen [Mass/Vol] 68 mg/dL High 7-25 [facility] Comment on above: Result Comment: Note updated reference ranges. Performed By: #### 8 2948 #### NURSING GLUCOSE PROGRAM [address] [place] [address], [address] COMPLETE BLOOD COUNTon 05-18 Erythrocyte distribution width (RBC) [Ratio] 14.0 % Normal 11.5-14.5 [facility] Comment on above: Performed By: #### 8 2948 #### NURSING GLUCOSE PROGRAM [address] [place] [address], [address] Hematocrit (Bld) [Volume fraction] 24.3 % Low 36.0-46.0 [facility] Comment on above: Performed By: #### 8 2948 #### NURSING GLUCOSE PROGRAM [address] [place] [address], [address] Hemoglobin (Bld) [Mass/Vol] 8.3 g/dL Low 12.0-15.0 [facility] Comment on above: Performed By: #### 8 2948 #### NURSING GLUCOSE PROGRAM [address] [place] [address], [address] MCH (RBC) [Entitic mass] 31.5 pg Normal 26.0-34.0 [facility] Comment on above: Performed By: #### 8 2948 #### NURSING GLUCOSE PROGRAM [address] [place] [address], [address] MCHC (RBC) [Mass/Vol] 34.3 g/dL Normal 32.0-35.9 [facility] Comment on above: Performed By: #### 8 2948 #### NURSING GLUCOSE PROGRAM [address] [place], [address] MCV (RBC) [Entitic vol] 92 fL Normal 80-100 [facility] Comment on above: Performed By: #### 8 2948 #### NURSING GLUCOSE PROGRAM [address] [place], [address] Platelet mean volume (Bld) [Entitic vol] 7.5 fL Normal 7.5-11.2 [facility] Comment on above: Performed By: #### 8 2948 #### NURSING GLUCOSE PROGRAM [address] [place], [address] Platelets (Bld) [#/Vol] 252 10*3/uL Normal 150-400 [facility] Comment on above: Performed By: #### 8 2948 #### NURSING GLUCOSE PROGRAM [address] [place], [address] RBC (Bld) [#/Vol] 2.64 10*6/uL Low 4.00-5.20 [facility] Comment on above: Performed By: #### 8 2948 #### NURSING GLUCOSE PROGRAM [address] [place], [address] WBC (Bld) [#/Vol] 10.0 10*3/uL Normal 4.5-11.5 [facility] Comment on above: Performed By: #### 8 2948 #### NURSING GLUCOSE PROGRAM [address] [place], [address] Care Plan Noteon 05-18-2023 Supervisor Sleeping Bag Department Authentication Interface Message Text Problem: Routine Care: [...] during hospital stay Outcome: Progressing Normal [facility] Supervisor Sleeping Bag Department Authentication Interface Message Text Nursing staff notified [...] am for continued possible dehydration. Normal [facility] Consultson 05-18-2023 Supervisor Sleeping Bag Department Authentication Interface Message Text Dietitian vs DietaryTech: [place] Diet Breaker Machine Operator Nutrition Screening Reason for visit: LOS 5 [...] Fluid Accumulation: non-pitting Diet Order: Regular; DM [place]; Dental Mechanical Soft Supplements: boost glucose max [...] Will continue to follow, Kasey Brand, Diet Breaker Machine Operator Pager [phone] Normal [facility] Discharge Planning Noteon Supervisor Sleeping Bag Department Authentication Interface Message Text CASE MANAGEMENT/SOCIAL WORK SNF DC NOTE: Pt has been cleared for transfer to SNF on this date. Pt [facility] [place] ([id number]) at 4PM. Nursing report may be called to [phone] Support person notified: DaughterKirstin ([phone]) Patient/Family, team aware of above and agreeable. For discharge, please ensure the following is completed: MD to place DC order, reconcile meds, and print narcotics to go with patient to SNF [facility] to print Discharge Summary, [place], Summary of Care, Narcotic Scripts, and Signature Page and place in a packet to be given to spotter driver If transport/discharge needs to be adjusted/cancelled, team (MD/RN) to cancel transport, update support person, and update receiving facility. Lidia Morel, PROFESSOR SCULPTURE, SQL BI DEVELOPER Normal [facility] GLUCOSE, FINGERSTICK-IN OFFI CEon 05-18-2023 Glucose [Mass/Vol] 143 mg/dL High 80-116 [facility] Comment on above: Performed By: #### 8 2948 #### NURSING GLUCOSE PROGRAM [address] [place], [address] Glucose [Mass/Vol] 144 mg/dL High 80-116 [facility] Comment on above: Performed By: #### C R BGA, CR GLU, CR ICA, CR COOX, CR LYTES, LACT #### [facility] [address] [place], [address] Glucose [Mass/Vol] 140 mg/dL High 80-116 [facility] Comment on above: Performed By: #### 8 2948 #### NURSING GLUCOSE PROGRAM [address] [place], [address] HEMOGLOBIN A1Con 05-18-2023 Glucose [Mass/Vol] 128 mg/dL Normal [facility] Comment on above: Performed By: #### C R BGA, CR GLU, CR ICA, CR COOX, CR LYTES, LACT #### [facility] [address] [place] [address], HbA1c (Bld) [Mass fraction] 6.1 % High 4.0-5.6 [facility] Comment on above: Performed By: #### C R BGA, CR GLU, CR ICA, CR COOX, CR LYTES, LACT #### [facility] [address] [place] [address], MAGNESIUMon 05-18-2023 Magnesium [Mass/Vol] 1.6 mg/dL Low 1.9-2.7 [facility] Comment on above: Result Comment: Note updated reference ranges. Performed By: #### 8 2948 #### NURSING GLUCOSE PROGRAM [address] [place], [address] Progress Noteson 05-18-2023 Supervisor Sleeping Bag Department Authentication Interface Message Text ---- GENERAL INFORMATION [...] mandibular fracture with TMJ dislocation. Transferred to [facility] for operative intervention. Hospital Course: 05/13/2023: Transferred to [facility] for R hip fracture, L mandibular fracture [...] MCV RDW Plt PT aPTT INR 05/18/23 004 10.0 2.64 8.3 24.3 92 14.0 252 [...] 134 05/16/23 1221 156 05/16/23 0758 132 05/15/235 162 IMAGING RESULTS (PERSONALLY REVIEWED) MBS: 1. [...] p (more content not included)... Normal [facility] URINALYSIS WITH REFLEX CULTU RE PERFORMABLEon 05-18-2023 Glucose Ql (U) Negative Normal Negative [facility] Comment on above: Order Comment: A [...] Performed By: #### u rinalysiswcul ####[facility] VPTBLGLEMW0507 [place], [address]#### C URINE ####[facility] [place] [facility] [address] [place], [place] Protein (U) [Mass/Vol] 30 mg/dL Abnormal Negative [facility] Comment on above: Order Comment: A [...] around 50%) Performed By: #### u rinalysiswcul ####[facility] [id number] [place], [place], #### C URINE ####[facility] [place] [facility] [address] [place], [place] [address] SQUAMOUS EPITHELIAL 3-5 Normal 0-10 [facility] Comment on above: Order Comment: A [...] around 50%) Performed By: #### u rinalysiswcul ####[facility] [id number] [place], [place], #### C URINE ####[facility] [place] [facility] [address]mp[address] [place], [place] U APPEAR Clear Normal Clear [facility] Comment on above: Order Comment: A [...] around 50%) Performed By: #### u rinalysiswcul ####[facility] [id number] [place], [place], #### C URINE ####[facility] [place] [facility] P[address] [place], [place] U BACTERIA Few Normal [facility] Comment on above: Order Comment: [...] around 50%) Performed By: #### u rinalysiswcul ####[facility] AILGJQHWCQ6109 [place], [place], #### C URINE ####[facility] [place] [facility] [address]sexy[address]ks[address] [place], [place] U BILI Negative Normal Negative The [facility] [place] [facility] Comment on above: Order Comment: [...] around 50%) Performed By: #### u rinalysiswcul ####[facility] GQBBOSQZLS1699 [place], [place], #### C URINE ####[facility] [place] [facility] [address] [place], [place] U BLOOD Trace Abnormal Negative [facility] Comment on above: Order Comment: [...] around 50%) Performed By: #### u rinalysiswcul ####[facility] [id number] [place], [place], #### C URINE ####[facility] [place] [facility] [address] [place], [place] [id number] U COLOR Colorless Normal Colorless [facility] Comment on above: Order Comment: [...] around 50%) Performed By: #### u rinalysiswcul ####[facility] RWPEYTWNRK6610 [place], [place], #### C URINE ####[facility] [address] [place], [place] [id number] U KETONE Negative Normal Negative [facility] Comment on above: Order Comment: A [...] around 50%) Performed By: #### u rinalysiswcul ####[facility] [id number] [place], [place], #### C URINE ####[facility] [place] [facility] T[address]ftp[address] [place], [place] U LEUK Positive Abnormal Negative The [facility] [place] [facility] Comment on above: Order Comment: [...] for pyuria. Performed By: #### u rinalysiswcul ####[facility] MIATLFSUWN5049 [place], [place], #### C URINE ####[address] U MUCOUS Present Normal The [facility] [place] [facility] Comment on above: Order Comment: [...] around 50%) Performed By: #### u rinalysiswcul ####[facility] DOPJTIJBVZ0745 [place], [place], #### C URINE ####[facility] [place] [facility] Bq[address]ajpx65[address] [place], [place] U NITRITE Negative Normal Negative [facility] Comment on above: Order Comment: A [...] around 50%) Performed By: #### u rinalysiswcul ####[facility] [id number] [place], [place], #### C URINE ####[facility] [place] [facility] F[address] [place], [place] [id number] U PH 6.0 Normal 5.0-8.0 [facility] Comment on above: Order Comment: A [...] around 50%) Performed By: #### u rinalysiswcul ####[facility] [id number] [place], [place], #### C URINE ####[facility] [place] [facility] [address] [place], [place] [id number] U RBC 0-2 Normal 0-2 [facility] Comment on above: Order Comment: A [...] around 50%) Performed By: #### u rinalysiswcul ####[facility] RJKOUDAPSE0856 [place], [place], #### C URINE ####[facility] [place] [facility] S[address]kv[address] [place], [place] U SG 1.011 Normal <=1.030 The [facility] [place] [facility] Comment on above: Order Comment: [...] around 50%) Performed By: #### u rinalysiswcul ####[facility] [id number] [place], [place], #### C URINE ####[facility] [place] [facility] [address] [place], [place] [id number] U UROBILI Negative Normal Negative The [facility] [place] [facility] Comment on above: Order Comment: [...] around 50%) Performed By: #### u rinalysiswcul ####[facility] DHVRLKRACW5330 [place], [place], #### C URINE ####[facility] [place] [facility] [address] [place], [place] [id number] U WBC 11-30 Abnormal 0-2 The [facility] [place] [facility] Comment on above: Order Comment: [...] around 50%) Performed By: #### u rinalysiswcul ####[facility] [id number] [place] [address], #### C URINE ####[address] URINE CULTUREon 05-18-2023 Bacteria identified Cx Nom (U) C URINE: Positive Culture Report ENTEROCOCCUS FAECIUM >100,000 CFU/ml Enterococcus faecium Normal The [facility] [place] [facility] Comment on above: Performed By: #### u rinalysiswcul ####[facility] [address] [place] [address], #### C URINE ####[address] GISSEL ORGANISM: ENTEROCOCCUS FAECIUM ANTIBIOTIC GISSEL SENSITIVITY Ampicillin >= 32 R Ciprofloxacin >= 8 R Linezolid 2 S Vancomycin <= 0.5 S Tetracycline >= 16 R Nitrofurantoin 64 I Normal [facility] Comment on above: Performed By: #### u rinalysiswcul ####[facility] [address]ZVJBFR[address] [place] [address], #### C URINE ####[facility] [place] [facility] [address] [place], [place] [id number] BASIC METABOLIC PANELon 01-1 5-2024 Anion gap [Moles/Vol] 19 mmol/L Normal 10-20 [facility] Comment on above: Performed By: #### C BC #### S [facility] LABORATORY [address] [place] [address], Calcium [Mass/Vol] 8.5 mg/dL Low 8.6-10.3 [facility] Comment on above: Result Comment: Note updated reference ranges. Performed By: #### C BC #### [facility] [address] [place] [address], Chloride [Moles/Vol] 100 mmol/L Normal 98-107 [facility] Comment on above: Result Comment: Note updated reference ranges. Performed By: #### C BC #### [facility] [address] [place] [address], CO2 [Moles/Vol] 24 mmol/L Normal 21-31 [facility] Comment on above: Result Comment: Note updated reference ranges. Performed By: #### C BC #### S [facility] LABORATORY [address] [place] [address], Creatinine [Mass/Vol] 2.24 mg/dL High 0.60-1.20 [facility] Comment on above: Result Comment: Note updated reference ranges. Performed By: #### C BC #### [facility] [address] [place] [address], ESTIMATED GFR (CKD-EPI) 22 mL/min/1.73sqm Low >=60 [facility] Comment on above: Result Comment: 2020 [...] Inclusion of Race in Diagnosing Kidney Disease. [place] Journal of Kidney Diseases 2021;79(2):268-88.e1. 2. N Engl J Med 1 Vol. 385 Issue 19 Pages 4405-8715 Performed By: #### C BC #### S [facility] LAB[facility] [address] [place], [place], Glucose [Mass/Vol] 116 mg/dL High 74-109 [facility] Comment on above: Performed By: #### C BC #### S [facility] LABORATORY [address] [place], [place], Potassium [Moles/Vol] 3.8 mmol/L Normal 3.5-5.0 [facility] Comment on above: Result Comment: Note updated reference ranges. Note updated reference ranges. Performed By: #### C BC #### [facility] [address] [place], [place], Sodium [Moles/Vol] 139 mmol/L Normal 136-145 [facility] Comment on above: Result Comment: Note updated reference ranges. Performed By: #### C BC #### [facility] [address] [place] [address], Urea nitrogen [Mass/Vol] 65 mg/dL High 7-25 [facility] Comment on above: Result Comment: Note updated reference ranges. Performed By: #### C BC #### [facility] [address] [place] [address], COMPLETE BLOOD COUNTon 05-17 Erythrocyte distribution width (RBC) [Ratio] 14.0 % Normal 11.5-14.5 The [facility] Comment on above: Performed By: #### C BC #### [facility] [address] [place] [address], Hematocrit (Bld) [Volume fraction] 23.3 % Low 36.0-46.0 [facility] Comment on above: Performed By: #### C BC #### [facility] [address] [place] [address], Hemoglobin (Bld) [Mass/Vol] 7.9 g/dL Low 12.0-15.0 The [facility] Comment on above: Performed By: #### C BC #### S PATHOLOGY LABORATORY [address] [place] [address], MCH (RBC) [Entitic mass] 31.1 pg Normal 26.0-34.0 [facility] Comment on above: Performed By: #### C BC #### S [facility] LAB[facility] [address] [place], [place], MCHC (RBC) [Mass/Vol] 33.9 g/dL Normal 32.0-35.9 [facility] Comment on above: Performed By: #### C BC #### S [facility] [address] [place], [place], MCV (RBC) [Entitic vol] 92 fL Normal 80-100 [facility] Comment on above: Performed By: #### C BC #### S [facility] LAB[facility]ORY [address] [place], [place], Platelet mean volume (Bld) [Entitic vol] 7.4 fL Low 7.5-11.2 [facility] Comment on above: Performed By: #### C BC #### S [facility] [address] [place], [place], Platelets (Bld) [#/Vol] 225 10*3/uL Normal 150-400 [facility] Comment on above: Performed By: #### C BC #### S [facility] [address] [place], [place], RBC (Bld) [#/Vol] 2.55 10*6/uL Low 4.00-5.20 [facility] Comment on above: Performed By: #### C BC #### [facility] [address] [place], [place], WBC (Bld) [#/Vol] 9.8 10*3/uL Normal 4.5-11.5 [facility] Comment on above: Performed By: #### C BC #### S PATHOLOGY LABORATORY [address] [place], [place], Care Plan Noteon 05-17-2023 Supervisor Sleeping Bag Department Authentication Interface Message Text Problem: Routine Care: [...] during hospital stay Outcome: Progressing Normal [facility] Consultson 05-17-2023 Supervisor Sleeping Bag Department Authentication Interface Message Text Modified Barium Swallow Study (MBSS) Time of service: 6695-1252 Duration: 10 minutes HPI Reason for Admit: [...] medical history. S Patient referred for MBS 06/04 further evaluation of oropharyngeal phases of swallow function. Pain: The patient denies pain at this time. Cognitive Status: The patient is alert. Respiration: The patient is on 3L of O2 via NC. Collar: N/A Phonation: WFL Dentition: O Videofluoroscopic Swallow Study was conducted in the lateral projections by Speech-Language Pathologist Berta Harrison M.A., CCC-PRODUCT LEAD, in collaboration with Radiology Department, to evaluate oropharyngeal swallow function. Anatomic view under fluoroscopy Structural Variations: Cricopharyngeal bar. Post-Surgical Changes: N/A Lines, Tubes, and Collars: N/A Foreign Bodies: N/A P.O. barium contrast trials Varibar Thin liquid, Varibar Payne, Varibar Pudding, solid coated in Varibar Pudding, [...] folds, and is ejected from the airway. Payne Thick Liquid/ IDDSI 2 Mildly-thick liquid Mode [...] l (more content not included)... Normal [facility] [place] MODIFIED BARIUM SWALLOWon 05-17-2023 FL MODIFIED BARIUM SWALLOW EXAMINATION: FL MODIFIED BARIUM SWALLOW 05/17/2023 02:43 PM CLINICAL HISTORY: persisent coughing with PO intake following previous PRODUCT LEAD evaluation ASSOCIATED DIAGNOSIS: ORDERING PROVIDER: JOHNSON CHAU TECHNOLOGISTS NOTE: COMPARISON: None FLUOROSCOPIST: EWS MILLER FLUORO TIME: 1.4 Minutes TECHNIQUE: The [...] #### 8 2948 #### NURSING GLUCOSE PROGRAM [address] [place] [address], [address] Glucose [Mass/Vol] 138 mg/dL High 80-116 [facility] Comment on above: Performed By: #### C BC #### S PATHOLOGY LABORATORY [address] [place], [address] Glucose [Mass/Vol] 153 mg/dL High 80-116 [facility] Comment on above: Performed By: #### C R BGA, CR GLU, CR ICA, CR COOX, CR LYTES, LACT #### [facility] [address] [place], [place], Glucose [Mass/Vol] 132 mg/dL High 80-116 [facility] Comment on above: Performed By: #### 8 2948 #### NURSING GLUCOSE PROGRAM [address] [place], [address] [place] 05-17-2023 Supervisor Sleeping Bag Department Authentication Interface Message Text Social Work/Case Management: Reason for placement: PT/OT Therapies Patient level of care required : Skilled Applicant's potential for returning to community: Convalescent stay:<30 days Prognosis: Good Rehab Potential: Improve Mental/Behavioral status:Alert Affect: Calm Social Work Assessment Functional status prior to admission: Independent functional ambulation with cane Community agencies active with patient: N/A Support system: Family Capacity for independent living/senior care plan: Return home Other hospital admissions within the past 60 days: No Other pertinent problems: Normal [facility] MAGNESIUMon 05-17-2023 Magnesium [Mass/Vol] 2.0 mg/dL Normal 1.6-2.8 [facility] Comment on above: Performed By: #### C R BGA, CR GLU, CR ICA, CR COOX, CR LYTES, LACT #### [facility] [address] [place], [address] Progress Noteson 05-17-2023 Supervisor Sleeping Bag Department Authentication Interface Message Text PT/OT are recommending SNF. Reviewed therapy recommendations with pt and daughter, Kirstin ([phone]) CM/SW provided pt's daughter the quality and resource use measure data from available post-acute (PAC) providers, that best align with the patient's treatment goals and preferences from the medicare.gov compare site for SNFs. [place] of Choice was provided to the patient/patient merchandiser retail representative. Referrals were sent to: 1.) [facility] 2.) [facility] Awaiting review. KONRAD Kevin, SQL BI DEVELOPER ADDENDUM 4:00PM Obtained pt's SS# from daughter and updated [facility] as requested. Awaiting final determination. KONRAD Kevin, NAY Normal [facility] [employer] Authentication Interface Message Text ---- GENERAL INFORMATION [...] mandibular fracture with TMJ dislocation. Transferred to [facility] for operative intervention. Hospital Course: 05/13/23: Transferred to [facility] for R hip fracture, L mandibular fracture [...] coughing with PO intake. Previously evaluated by PRODUCT LEAD, who recommended MBS with change in respiratory [...] Commen (more content not included)... Normal [facility] TYPE AND SCREENon 05-17-2023 ABO and Rh group Nom (Bld) Blood group O Rh(D) positive Normal [facility] Comment on above: Performed By: #### C BC #### [facility] [address] [place] [address], ABSC INT Negative Normal [facility] Comment on above: Performed By: #### C BC #### S PATHOLOGY LABORATORY [address] [place] [address], ANTI FXA-UNFRACT. HEPARINon 05-16-2023 ANTI FXA-UNFRACT. HEPARIN 0.21 IU/mL Normal <=1.20 [facility] Comment on above: Order Comment: The r ecommended therapeutic range for treatment of thrombosis with Unfractionated Heparin is 0.3-0.7 IU/mL.The recommended range for VTE prophylaxis with Unfractionated Heparin is 0.1-0.3 IU/mL Performed By: #### C R BGA, CR GLU, CR ICA, CR COOX, CR LYTES, LACT #### S PATHOLOGY LABORATORY [address] [place] [address], BASIC METABOLIC PANELon 05-03 Anion gap [Moles/Vol] 15 mmol/L Normal 10-20 [facility] Comment on above: Performed By: #### C BC #### [facility] PATHOLOG[facility] LAB[facility]ATORY [address] [place] [address], Calcium [Mass/Vol] 8.2 mg/dL Low 8.6-10.3 [facility] Comment on above: Result Comment: Note updated reference ranges. Performed By: #### C BC #### [facility] PATHOLOGY LABORATORY [address] [place] [address], Chloride [Moles/Vol] 100 mmol/L Normal 98-107 [facility] Comment on above: Result Comment: Note updated reference ranges. Performed By: #### C BC #### [facility] PATHOLOGY LABORATORY [address] [place] [address], CO2 [Moles/Vol] 25 mmol/L Normal 21-31 [facility] Comment on above: Result Comment: Note updated reference ranges. Performed By: #### C BC #### S PATHOLOGY LABORATORY [address] [place], [place], Creatinine [Mass/Vol] 2.36 mg/dL High 0.60-1.20 [facility] Comment on above: Result Comment: Note updated reference ranges. Performed By: #### C BC #### S PATHOLOGY LABORATORY [address] [place], [place], ESTIMATED GFR (CKD-EPI) 21 mL/min/1.73sqm Low >=60 [facility] Comment on above: Result Comment: 2020 [...] Inclusion of Race in Diagnosing Kidney Disease. [place] Journal of Kidney Diseases 2021;79(2):268-88.e1. 2. N Engl J Med 2020 Vol. 385 Issue 19 Pages 2037-0306 Performed By: #### C BC #### S PATHOLOGY LABORATORY [address] [place] [address], Glucose [Mass/Vol] 146 mg/dL High 74-109 [facility] Comment on above: Performed By: #### C BC #### S PATHOLOGY LABORATORY [address] [place] [address], Potassium [Moles/Vol] 3.9 mmol/L Normal 3.5-5.0 [facility] Comment on above: Result Comment: Note updated reference ranges. Note updated reference ranges. Performed By: #### C BC #### S PATHOLOGY LABORATORY [address] [place] [address], Sodium [Moles/Vol] 136 mmol/L Normal 136-145 [facility] Comment on above: Result Comment: Note updated reference ranges. Performed By: #### C BC #### S PATHOLOGY LABORATORY [address] [place] [address], Urea nitrogen [Mass/Vol] 61 mg/dL High 7-25 [facility] Comment on above: Result Comment: Note updated reference ranges. Performed By: #### C BC #### S PATHOLOGY LABORATORY [address] [place] [address], COMPLETE BLOOD COUNTon 05-16 Erythrocyte distribution width (RBC) [Ratio] 14.1 % Normal 11.5-14.5 [facility] Comment on above: Performed By: #### C BC #### S PATHOLOGY LABORATORY [address] [place] [address], Hematocrit (Bld) [Volume fraction] 23.8 % Low 36.0-46.0 [facility] Comment on above: Performed By: #### C BC #### [facility] PATHOLOGY LABORATORY [address] [place] [address], Hemoglobin (Bld) [Mass/Vol] 8.1 g/dL Low 12.0-15.0 [facility] Comment on above: Performed By: #### C BC #### [facility] PATHOLOGY LABORATORY [address] [place] [address], MCH (RBC) [Entitic mass] 31.2 pg Normal 26.0-34.0 [facility] Comment on above: Performed By: #### C BC #### [facility] PATHOLOG[facility] LAB[facility]ATORY [address] [place] [address], MCHC (RBC) [Mass/Vol] 34.0 g/dL Normal 32.0-35.9 [facility] Comment on above: Performed By: #### C BC #### [facility] PATHOLOGY LABORATORY [address] [place] [address], MCV (RBC) [Entitic vol] 92 fL Normal 80-100 [facility] Comment on above: Performed By: #### C BC #### [facility] PATHOLOGY LABORATORY [address] [place] [address], Platelet mean volume (Bld) [Entitic vol] 7.2 fL Low 7.5-11.2 [facility] Comment on above: Performed By: #### C BC #### [facility] PATHOLOGY LABORATORY [address] [place] [address], Platelets (Bld) [#/Vol] 218 10*3/uL Normal 150-400 [facility] Comment on above: Performed By: #### C BC #### [facility] PATHOLOGY LABORATORY [address] [place] [address], RBC (Bld) [#/Vol] 2.59 10*6/uL Low 4.00-5.20 [facility] Comment on above: Performed By: #### C BC #### [facility] PATHOLOGY LABORATORY [address] [place] [address], WBC (Bld) [#/Vol] 9.8 10*3/uL Normal 4.5-11.5 [facility] Comment on above: Performed By: #### C BC #### [facility] PATHOLOGY LABORATORY [address] [place] [address], Erythrocyte distribution width (RBC) [Ratio] 14.2 % Normal 11.5-14.5 [facility] Comment on above: Performed By: #### C BC ####[facility] PATHOLOGY [id number] [place] [address], Hematocrit (Bld) [Volume fraction] 18.8 % Critically low 36.0-46.0 [facility] Comment on above: Performed By: #### C BC ####[facility] PATHOLOGY [id number] [place] [address], Hemoglobin (Bld) [Mass/Vol] 6.3 g/dL Critically low 12.0-15.0 [facility] Comment on above: Performed By: #### C BC ####[facility] PATHOLOGY [id number] [place] [address], MCH (RBC) [Entitic mass] 30.8 pg Normal 26.0-34.0 [facility] Comment on above: Performed By: #### C BC ####[facility] PATHOLOGY [id number] [place] [address], MCHC (RBC) [Mass/Vol] 33.5 g/dL Normal 32.0-35.9 [facility] Comment on above: Performed By: #### C BC ####[facility] PATHOLOGY [id number] [place] [address], MCV (RBC) [Entitic vol] 92 fL Normal 80-100 [facility] Comment on above: Performed By: #### C BC ####[facility] PATHOLOGY [id number] [place] [address], Platelet mean volume (Bld) [Entitic vol] 7.4 fL Low 7.5-11.2 [facility] Comment on above: Performed By: #### C BC ####[facility] PATHOLOGY [id number] [place] [address], Platelets (Bld) [#/Vol] 217 10*3/uL Normal 150-400 [facility] Comment on above: Performed By: #### C BC ####[facility] PATHOLOGY [id number] [place] [address], RBC (Bld) [#/Vol] 2.04 10*6/uL Low 4.00-5.20 [facility] Comment on above: Performed By: #### C BC ####[facility] PATHOLOGY [id number] [place] [address], WBC (Bld) [#/Vol] 9.3 10*3/uL Normal 4.5-11.5 [facility] Comment on above: Performed By: #### C BC ####[facility] PATHOLOGY [id number] [place] [address], Erythrocyte distribution width (RBC) [Ratio] 13.9 % Normal 11.5-14.5 [facility] Comment on above: Performed By: #### C BC ####[facility] PATHOLOGY [id number] [place] [address], Hematocrit (Bld) [Volume fraction] 18.9 % Critically low 36.0-46.0 [facility] Comment on above: Performed By: #### C BC ####[facility] PATHOLOGY [id number] [place] [address], Hemoglobin (Bld) [Mass/Vol] 6.5 g/dL Critically low 12.0-15.0 [facility] Comment on above: Performed By: #### C BC ####[facility] PATHOLOGY [id number] [place] [address], MCH (RBC) [Entitic mass] 31.5 pg Normal 26.0-34.0 [facility] Comment on above: Performed By: #### C BC ####[facility] PATHOLOGY [id number] [place] [address], MCHC (RBC) [Mass/Vol] 34.6 g/dL Normal 32.0-35.9 [facility] Comment on above: Performed By: #### C BC ####[facility] PATHOLOGY [id number] [place], [place], MCV (RBC) [Entitic vol] 91 fL Normal 80-100 [facility] Comment on above: Performed By: #### C BC ####[facility] PATHOLOG[facility] [id number] [place], [place], Platelet mean volume (Bld) [Entitic vol] 7.5 fL Normal 7.5-11.2 [facility] Comment on above: Performed By: #### C BC ####[facility] PATHOLOG[facility] [id number] [place], [place], Platelets (Bld) [#/Vol] 217 10*3/uL Normal 150-400 [facility] Comment on above: Performed By: #### C BC ####[facility] PATHOLOGY [id number] [place], [place], RBC (Bld) [#/Vol] 2.07 10*6/uL Low 4.00-5.20 [facility] Comment on above: Performed By: #### C BC ####[facility] PATHOLOGY [id number] [place] [address], WBC (Bld) [#/Vol] 10.2 10*3/uL Normal 4.5-11.5 [facility] Comment on above: Performed By: #### C BC ####[facility] PATHOLOGY [id number] [place] [address], Care Plan Noteon 05-16-2023 Supervisor Sleeping Bag Department Authentication Interface Message Text Problem: Routine Care: [...] above: Performed By: #### C BC #### [facility] PATHOLOGY LABORATORY [address] [place] [address], Glucose [Mass/Vol] 134 mg/dL High 80-116 [facility] Comment on above: Performed By: #### C R BGA, CR GLU, CR ICA, CR COOX, CR LYTES, LACT #### S PATHOLOGY LABORATORY [address] [place] [address], Glucose [Mass/Vol] 156 mg/dL High 80-116 [facility] Comment on above: Performed By: #### C R BGA, CR GLU, CR ICA, CR COOX, CR LYTES, LACT #### [facility] PATHOLOGY LABORATORY [address] [place] [address], Glucose [Mass/Vol] 132 mg/dL High 80-116 [facility] Comment on above: Performed By: #### 8 2948 ####NURSING GLUCOSE [id number] [place], [address] LEVETIRACETAMon 05-16-2023 LEVETIRA 22.4 ug/mL Normal 6.0-46.0 [facility] Comment on above: Performed By: #### C R BGA, CR GLU, CR ICA, CR COOX, CR LYTES, LACT #### [facility] [address] [place], [place], MAGNESIUMon 05-16-2023 Magnesium [Mass/Vol] 2.1 mg/dL Normal 1.6-2.8 [facility] Comment on above: Performed By: #### C BC #### [facility] [address] [place], [place], Progress Noteson 05-16-2023 Supervisor Sleeping Bag Department Authentication Interface Message Text ---- GENERAL INFORMATION [...] mandibular fracture with TMJ dislocation. Transferred to [facility] for operative intervention. Hospital Course: 05/13/23: Transferred to [facility] for R hip fracture, L mandibular fracture [...] Intake/Output Summary (Last 24 hours) at 05/16/2023 0671 Last data filed at 05/16/2023 0300 Gross [...] Incidental Findings: None on imaging obtained at [facility] ([facility], 05/14/23) Plan: Neurological: Acute pain due to trauma, acute post-op pain. Hx (more content not included)... Normal [facility] Supervisor Sleeping Bag Department Authentication Interface Message Text /SCOTTIE Valles notified of critical Hematocrit and Hemoglobin value of 18.8 and 6.3. /SCOTTIE Valles read back critical results. New orders received. Normal [facility] RED BLOOD CELL COMPONENTon 0 05-16-2023 BB ORDER ITEM Product status info to follow Normal [facility] Comment on above: Performed By: #### R EMILIANO ####S PATHOLOGY [id number] [place], [place], RED BLOOD CELL UNIT STATUSon 05-16-2023 BLOOD PRODUCT CODE [id number] Normal [facility] Comment on above: Performed By: #### C BC #### [facility] [address] [place], [place], BLOOD PRODUCT DESCRIPTION Red Blood Cells Normal [facility] Comment on above: Performed By: #### C BC #### [facility] [address] [place], [place], BLOOD PRODUCT STATUS Transfused Normal [facility] Comment on above: Performed By: #### C BC #### [facility] PATHOLOG[facility] LABORATORY [address] [place], [place], BLOOD PRODUCT UNIT INFO [id number] Normal [facility] Comment on above: Performed By: #### C BC #### [facility] PATHOLOG[facility] LABORATORY [address] [place], [place], BLOOD PRODUCT UNIT TYPE 5100 Normal The [facility] Comment on above: Result Comment: O Po s Performed By: #### C BC #### [facility] PATHOLOGY LABORATORY [address] [place], [place], CROSSMATCH INTERPRETATION Compatible (E) Normal The [facility] Comment on above: Performed By: #### C BC #### [facility] PATHOLOGY LABORATORY [address] [place] [address], VITAMIN D, 25-HYDROXYon 05-03 VITD25 54 ng/mL Normal 30-100 [facility] Comment on above: Order Comment: Defic ient : <20.0 ng/mLInsufficient : 20.0-29.9 ng/mLSufficient : 30.0 - 100.0 ng/mLPotential Toxicity : >100.0 ng/mL Performed By: #### V ITD25 ####[facility] PATHOLOG[facility] [id number] [place], [place], BASIC METABOLIC PANELon 05-03 Anion gap [Moles/Vol] 19 mmol/L Normal 10-20 [facility] Comment on above: Performed By: #### C R BGA, CR GLU, CR ICA, CR COOX, CR LYTES, LACT #### [facility] PATHOLOG[facility] LABORATORY [address] [place], [place], Calcium [Mass/Vol] 7.7 mg/dL Low 8.6-10.3 [facility] Comment on above: Result Comment: Note updated reference ranges. Performed By: #### C R BGA, CR GLU, CR ICA, CR COOX, CR LYTES, LACT #### [facility] PATHOLOG[facility] LABORATORY [address] [place], [place], Chloride [Moles/Vol] 98 mmol/L Normal 98-107 [facility] Comment on above: Result Comment: Note updated reference ranges. Performed By: #### C R BGA, CR GLU, CR ICA, CR COOX, CR LYTES, LACT #### S PATHOLOGY LABORATORY [address] [place] [address], CO2 [Moles/Vol] 22 mmol/L Normal 21-31 [facility] Comment on above: Result Comment: Note updated reference ranges. Performed By: #### C R BGA, CR GLU, CR ICA, CR COOX, CR LYTES, LACT #### S PATHOLOGY LABORATORY [address] [place], [place], Creatinine [Mass/Vol] 2.26 mg/dL High 0.60-1.20 [facility] Comment on above: Result Comment: Note updated reference ranges. Performed By: #### C R BGA, CR GLU, CR ICA, CR COOX, CR LYTES, LACT #### [facility] PATHOLOG[facility] LABORATORY [address] [place] [address], ESTIMATED GFR (CKD-EPI) 22 mL/min/1.73sqm Low >=60 [facility] Comment on above: Result Comment: 2020 [...] Inclusion of Race in Diagnosing Kidney Disease. [place] Journal of Kidney Diseases 2021;79(2):268-88.e1. 2. N Engl J Med 1 Vol. 385 Issue 19 Pages 8727-4432 Performed By: #### C R BGA, CR GLU, CR ICA, CR COOX, CR LYTES, LACT #### S PATHOLOGY LABORATORY [address] [place], [place], Glucose [Mass/Vol] 126 mg/dL High 74-109 [facility] Comment on above: Performed By: #### C R BGA, CR GLU, CR ICA, CR COOX, CR LYTES, LACT #### [facility] PATH[facility] LABORATORY [address] [place] [address], Potassium [Moles/Vol] 4.0 mmol/L Normal 3.5-5.0 [facility] Comment on above: Result Comment: Note updated reference ranges. Note updated reference ranges. Performed By: #### C R BGA, CR GLU, CR ICA, CR COOX, CR LYTES, LACT #### [facility] PATHOLOG[facility] LABORATORY [address] [place] [address], Sodium [Moles/Vol] 135 mmol/L Low 136-145 [facility] Comment on above: Result Comment: Note updated reference ranges. Performed By: #### C R BGA, CR GLU, CR ICA, CR COOX, CR LYTES, LACT #### [facility] PATHOLOG[facility] LABORATORY [address] [place] [address], Urea nitrogen [Mass/Vol] 52 mg/dL High 7-25 [facility] Comment on above: Result Comment: Note updated reference ranges. Performed By: #### C R BGA, CR GLU, CR ICA, CR COOX, CR LYTES, LACT #### [facility] PATHOLOG[facility] LABORATORY [address] [place] [address], COMPLETE BLOOD COUNTon 05-15 Erythrocyte distribution width (RBC) [Ratio] 14.3 % Normal 11.5-14.5 [facility] Comment on above: Performed By: #### C BC #### [facility] PATHOLOG[facility] LABORATORY [address] [place] [address], Hematocrit (Bld) [Volume fraction] 23.8 % Low 36.0-46.0 [facility] Comment on above: Performed By: #### C BC #### [facility] PATHOLOG[facility] LABORATORY [address] [place] [address], Hemoglobin (Bld) [Mass/Vol] 8.0 g/dL Low 12.0-15.0 [facility] Comment on above: Performed By: #### C BC #### [facility] PATH[facility] LABORATORY [address] [place] [address], MCH (RBC) [Entitic mass] 31.0 pg Normal 26.0-34.0 [facility] Comment on above: Performed By: #### C BC #### [facility] PATH[facility]ORY [address] [place], [place], MCHC (RBC) [Mass/Vol] 33.8 g/dL Normal 32.0-35.9 [facility] Comment on above: Performed By: #### C BC #### [facility] LABOR[facility] [address] [place], [place], MCV (RBC) [Entitic vol] 92 fL Normal 80-100 [facility] Comment on above: Performed By: #### C BC #### [facility] [address] [place], [place], Platelet mean volume (Bld) [Entitic vol] 7.7 fL Normal 7.5-11.2 [facility] Comment on above: Performed By: #### C BC #### [facility] PATH[facility] LABORATORY [address] [place] [address], Platelets (Bld) [#/Vol] 225 10*3/uL Normal 150-400 [facility] Comment on above: Performed By: #### C BC #### [facility]ORY [address] [place], [place], RBC (Bld) [#/Vol] 2.60 10*6/uL Low 4.00-5.20 [facility] [facility] Comment on above: Performed By: #### C BC #### [facility] [address] [place] [address], WBC (Bld) [#/Vol] 10.3 10*3/uL Normal 4.5-11.5 [facility] Comment on above: Performed By: #### C BC #### [facility] [address] [place] [address], Care Plan Noteon 05-15-2023 Supervisor Sleeping Bag Department Authentication Interface Message Text I was called [...] #### [id number] #### NURSING GLUCOSE PROGRAM [address] [place] [address], [address] Glucose [Mass/Vol] 171 mg/dL High 80-116 [facility] Comment on above: Performed By: #### 8 [id number] #### NURSING GLUCOSE PROGRAM [address] [place], [address] Glucose [Mass/Vol] 190 mg/dL High 80-116 [facility] Comment on above: Performed By: #### C R BGA, CR GLU, CR ICA, CR COOX, CR LYTES, LACT #### [facility] [address] [place] [address], Glucose [Mass/Vol] 149 mg/dL High 80-116 [facility] Comment on above: Performed By: #### C R BGA, CR GLU, CR ICA, CR COOX, CR LYTES, LACT #### [facility] [address] [place] [address], MAGNESIUMon 05-15-2023 Magnesium [Mass/Vol] 1.4 mg/dL Low 1.6-2.8 [facility] Comment on above: Performed By: #### C R BGA, CR GLU, CR ICA, CR COOX, CR LYTES, LACT #### [facility] [address] [place] [address], Progress Noteson 05-15-2023 Supervisor Sleeping Bag Department Authentication Interface Message Text ---- GENERAL INFORMATION [...] mandibular fracture with TMJ dislocation. Transferred to [facility] for operative intervention. Hospital Course: 05/13/23: Transferred to [facility] for R hip fracture, L mandibular fracture [...] mL (kim catheter) BM: Last BM documented [employer] SALES REPRESENTATIVE PHYSICAL EXAM Vital Signs: Vital sign ranges [...] ------- (more content not included)... Normal [facility] ABO RH TYPEon 05-14-2023 ABO and Rh group Nom (Bld) Blood group O Rh(D) positive Normal [facility] Comment on above: Performed By: #### C R BGA, CR GLU, CR ICA, CR COOX, CR LYTES, LACT #### [facility] [address] [place] [address], [phone] AdmissionCareon 05-14-2023 Supervisor Sleeping Bag Department Authentication Interface Message Text AdmissionCare Guideline: Hip Fracture, Inpatient Based on the indications selected for the patient, the bed status of Admit to Inpatient was determined to be MET The following indications were selected as present at the time of evaluation of the patient: - Hip fractureOperative Status Criteria selected: Inpatient AdmissionCare documentation entered by: Laura Hernández [facility] [employer], 27th edition, Copyright ??? 2022 [facility] [email or web address] [facility] All Rights Reserved. [id number]:12:[id number]:00 Normal [facility] Anesthesia Postprocedure Stefani luationon 05-14-2023 Supervisor Sleeping Bag Department Authentication Interface Message Text Anesthesia Postoperative Assessment: [...] EVENTS: No notable events documented. 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 C. [...] Neuro Abnormal sensation Plan Attestation: Normal [facility] 05-14-2023 Supervisor Sleeping Bag Department Authentication Interface Message Text Patient taken to [...] intertrochanteric fracture of right femur ([facility]) [S72.141A] Past Surgical History: There is no previous surgical history on file. Allergies: Bee venom, Extra strength grapefruit, Grapefruit extract, Lanolin, Naproxen, and Pineapple Basic Operating Room Facts: Surgeon(s): Colt Live DO Anesthesiologist: Meng Bustillo MD; Oma Sneed MD PILE DRIVING TECHNICIAN: Dale Whiteside APRN-PILE DRIVING TECHNICIAN Jukebox Operator: Ramon Paez MD REDUCTION, OPEN, FEMUR, INTRAMEDULLARY [...] 0905 Infusion Status Port #1 Infusing;Patent 05/14/23 09 [...] was received. Ramon Paez MD Normal [facility] BASIC METABOLIC PANELon 05-03 Anion gap [Moles/Vol] 17 mmol/L Normal 10-20 [facility] Comment on above: Performed By: #### C R BGA, CR GLU, CR ICA, CR COOX, CR LYTES, LACT #### S PATHOLOG[facility] LABORATORY [address] [place] [address], Calcium [Mass/Vol] 6.9 mg/dL Low 8.6-10.3 [facility] Comment on above: Result Comment: Note updated reference ranges. Performed By: #### C R BGA, CR GLU, CR ICA, CR COOX, CR LYTES, LACT #### S PATH[facility] LABORATORY [address] [place], [place], Chloride [Moles/Vol] 98 mmol/L Normal 98-107 [facility] Comment on above: Result Comment: Note updated reference ranges. Performed By: #### C R BGA, CR GLU, CR ICA, CR COOX, CR LYTES, LACT #### [facility] [address] [place] [address], CO2 [Moles/Vol] 23 mmol/L Normal 21-31 [facility] Comment on above: Result Comment: Note updated reference ranges. Performed By: #### C R BGA, CR GLU, CR ICA, CR COOX, CR LYTES, LACT #### [facility] [address] [place] [address], Creatinine [Mass/Vol] 1.80 mg/dL High 0.60-1.20 [facility] Comment on above: Result Comment: Note updated reference ranges. Performed By: #### C R BGA, CR GLU, CR ICA, CR COOX, CR LYTES, LACT #### [facility] [address] [place] [address], ESTIMATED GFR (CKD-EPI) 29 mL/min/1.73sqm Low >=60 [facility] Comment on above: Result Comment: 2020 [...] Inclusion of Race in Diagnosing Kidney Disease. [place] Journal of Kidney Diseases 2021;79(2):268-88.e1. 2. N Engl J Med 2020 Vol. 385 Issue 19 Pages 8261-3751 Performed By: #### C R BGA, CR GLU, CR ICA, CR COOX, CR LYTES, LACT #### [facility] [address] [place] [address], Glucose [Mass/Vol] 140 mg/dL High 74-109 [facility] Comment on above: Performed By: #### C R BGA, CR GLU, CR ICA, CR COOX, CR LYTES, LACT #### [facility] [address] [place] [address], Potassium [Moles/Vol] 3.5 mmol/L Normal 3.5-5.0 The [facility] Comment on above: Result Comment: Note updated reference ranges. Note updated reference ranges. Performed By: #### C R BGA, CR GLU, CR ICA, CR COOX, CR LYTES, LACT #### [facility] [address] [place] [address], Sodium [Moles/Vol] 134 mmol/L Low 136-145 [facility] Comment on above: Result Comment: Note updated reference ranges. Performed By: #### C R BGA, CR GLU, CR ICA, CR COOX, CR LYTES, LACT #### [facility] [address] [place] [address], Urea nitrogen [Mass/Vol] 47 mg/dL High 7-25 The [facility] Comment on above: Result Comment: Note updated reference ranges. Performed By: #### C R BGA, CR GLU, CR ICA, CR COOX, CR LYTES, LACT #### [facility] [address] [place] [address], BLOOD GAS, ARTERIALon 2023 CR JAIRO -2.2 mmol/L Low -2.0-3.0 [facility] Comment on above: Performed By: #### C R BGA, CR GLU, CR ICA, CR COOX, CR LYTES, LACT #### [facility] [address] [place] [address], CR PCO2 42.4 mm Hg Normal 35.0-45.0 [facility] Comment on above: Performed By: #### C R BGA, CR GLU, CR ICA, CR COOX, CR LYTES, LACT #### [facility] [address] [place] [address], CR PHA 7.349 Low 7.350-7.450 [facility] Comment on above: Performed By: #### C R BGA, CR GLU, CR ICA, CR COOX, CR LYTES, LACT #### [facility] [address] [place] [address], CR PO2 187 mm Hg High 80-100 [facility] Comment on above: Performed By: #### C R BGA, CR GLU, CR ICA, CR COOX, CR LYTES, LACT #### S PATHOLOGY LABORATORY [address] [place] [address], HCO3 (Bld) [Moles/Vol] 23 mmol/L Normal 21-28 [facility] Comment on above: Performed By: #### C R BGA, CR GLU, CR ICA, CR COOX, CR LYTES, LACT #### [facility] [address] [place] [address], Oxygen saturation in Blood 99.0 % Normal 95.0-99.0 [facility] Comment on above: Performed By: #### C R BGA, CR GLU, CR ICA, CR COOX, CR LYTES, LACT #### [facility] [address] [place], [place], Blood Attestationon 05-14-19 Supervisor Sleeping Bag Department Authentication Interface Message Text Blood Attestation: ATTESTATION OF INFORMED CONSENT FOR BLOOD: The transfusion of blood and/or blood components were discussed with the patient and/or legal merchandiser retail representative. The risks, benefits and alternatives were reviewed. Questions regarding blood transfusions were answered. The patient /or the patient's legal merchandiser retail representative agree with the plan for transfusion of blood and/or blood components. Normal [facility] Brief Operative Noteon 05-14 Supervisor Sleeping Bag Department Authentication Interface Message Text Brief Operative Note MAIN OR 02 Kate Hagen 72 year old female Surgical Contact Serial Number: [id number] Preoperative Diagnosis: Pre-op Diagnosis * Closed displaced intertrochanteric fracture of right femur, initial encounter ([facility]) [S72.141A] Postoperative Diagnosis: * Closed displaced intertrochanteric fracture of right femur, initial encounter ([facility]) [S72.141A] Procedures: Cephalomedullary ramon right femur Surgeon(s): Surgeon(s): Colt Live DO Staff: Nurse: Cindy Lovett RN Scrub: Carole Snyder Rodney Machine Operations Supervisor Nurse: Cierra Marquez RN Assurance Manager: Karena Worthy Central Sterile Technician: Cathy Juárez MD; Gregorio Cho MD Anesthesia: General Anesthesiologist: Meng Bustillo MD; Oma Sneed MD PILE DRIVING TECHNICIAN: Dale Whiteside APRN-PILE DRIVING TECHNICIAN Jukebox Operator: Ramon Paez MD Specimen(s): * No specimens in log * Estimated Blood Loss: greater than 10 cc -- Esitmated Amount: 50 ccs Lines/Drains: Peripheral IV Access: 05/13/23 20 gauge Anterior;Left Forearm Present on Transfer to Unit / Floor (Active) Site Assessment WNL;Dressing intact 05/14/23904 Infusion Status Port #1 Infusing;Patent 05/14/23904 Peripheral IV Access: 05/14/23 1357 18 gauge Right Hand (Active) Site Assessment WNL;Dressing intact 05/14/231356 Infusion Status Port #1 Infusing;Patent;Positive blood return [...] Cho MD 05/14/2023 3:27 PM Normal [facility] CALCIUM, IONIZEDon CR ICA 1.00 mmol/L Low 1.15-1.33 [facility] Comment on above: Result Comment: This test was developed, and its performance characteristics determined by the Department of Pathology of [facility]. It has not been cleared or approved by the FDA. This test is used for clinical purposes only. Performed By: #### C R BGA, CR GLU, CR ICA, CR COOX, CR LYTES, LACT #### [facility] [address] [place] [address], [id number] CO-OXIMETERon 05-14-2023 CARBOXYHEMOGLOBIN 1.0 % Normal 0.5-1.5 [facility] Comment on above: Performed By: #### C R BGA, CR GLU, CR ICA, CR COOX, CR LYTES, LACT #### [facility] [address] [place] [address], CR HBMET 1.5 % Normal 0.0-1.5 [facility] Comment on above: Performed By: #### C R BGA, CR GLU, CR ICA, CR COOX, CR LYTES, LACT #### [facility] [address] [place] [address], Hematocrit (Bld) [Volume fraction] 31.0 % Low 38.0-46.0 [facility] Comment on above: Performed By: #### C R BGA, CR GLU, CR ICA, CR COOX, CR LYTES, LACT #### [facility] [address] [place] [address], Hemoglobin (Bld) [Mass/Vol] 10.0 g/dL Low 12.0-16.0 [facility] Comment on above: Performed By: #### C R BGA, CR GLU, CR ICA, CR COOX, CR LYTES, LACT #### [facility] [address] [place] [address], OXYHEMOGLOBIN 96.5 % Normal 94.0-98.0 The [facility] Comment on above: Performed By: #### C R BGA, CR GLU, CR ICA, CR COOX, CR LYTES, LACT #### [facility] [address] [place] [address], COMPLETE BLOOD COUNTon 05-14 Erythrocyte distribution width (RBC) [Ratio] 14.1 % Normal 11.5-14.5 The [facility] Comment on above: Performed By: #### C BC #### [facility] [address] [place] [address], Hematocrit (Bld) [Volume fraction] 27.0 % Low 36.0-46.0 [facility] Comment on above: Performed By: #### C BC #### [facility] [address] [place], [place], Hemoglobin (Bld) [Mass/Vol] 9.4 g/dL Low 12.0-15.0 [facility] Comment on above: Performed By: #### C BC #### [facility] [address] [place], [place], MCH (RBC) [Entitic mass] 31.5 pg Normal 26.0-34.0 [facility] Comment on above: Performed By: #### C BC #### [facility] [address] [place], [place], MCHC (RBC) [Mass/Vol] 34.8 g/dL Normal 32.0-35.9 [facility] Comment on above: Performed By: #### C BC #### [facility] [address] [place], [place], MCV (RBC) [Entitic vol] 91 fL Normal 80-100 The [facility] Comment on above: Performed By: #### C BC #### [facility] [address] [place], [place], Platelet mean volume (Bld) [Entitic vol] 7.1 fL Low 7.5-11.2 The [facility] Comment on above: Performed By: #### C BC #### [facility] [address] [place], [place], Platelets (Bld) [#/Vol] 149 10*3/uL Low 150-400 [facility] Comment on above: Performed By: #### C BC #### [facility] [address] [place], [place], RBC (Bld) [#/Vol] 2.98 10*6/uL Low 4.00-5.20 [facility] Comment on above: Performed By: #### C BC #### [facility] [address] [place], [place], WBC (Bld) [#/Vol] 9.7 10*3/uL Normal 4.5-11.5 The [facility] Comment on above: Performed By: #### C BC #### [facility] [address] [place], [id number] CT FACIAL BONES W/O CONTRAST on 05-14-2023 [...] Paranasal sinus disease. MACRO: None Normal [facility] CTA HEAD W/on 05-14-2023 CTA HEAD [...] arteries, PICA/AICA branches, basilar artery, SCAs and energy systems laboratory director are patent. No vessel cutoff, aneurysm or focal hemodynamically significant stenosis. IMPRESSION: 1. No acute intracranial abnormality. 2. Displaced left mandibular condyle fracture with dislocated TMJ joint. 3. No significant stenosis, dissection, or aneurysm in the intracranial circulation. MACRO: None Normal [facility] Care Plan Noteon 05-14-2023 Supervisor Sleeping Bag Department Authentication Interface Message Text Problem: Routine Care: [...] will be met Outcome: Progressing Normal [facility] Supervisor Sleeping Bag Department Authentication Interface Message Text Clear for surgery Laura Hernández MD Resident Physician Trauma Surgery Pager: [phone] Normal [facility] Supervisor Sleeping Bag Department Authentication Interface Message Text Trauma Surgery Benefits of contrast outweigh risks for CT Neck in setting of recent trauma. GFR 29 today. Cr at baseline 1.8. Baseline GFR 35 per care everywhere. On LR while NPO. Not on dialysis. Laura Hernández MD Resident Physician Trauma Surgery Pager: [phone] Normal [facility] Supervisor Sleeping Bag Department Authentication Interface Message Text Problem: Routine Care: [...] will be met Outcome: Progressing Normal [facility] Consultson 05-14-2023 Supervisor Sleeping Bag Department Authentication Interface Message Text -- Attestation signed [...] resident's note. 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 Facial trauma team for evaluation of a fracture to the L mandibular condyle. Patient states she sustained the trauma 1 week ago after suffering a GLF, went to an outside facility on 05/13/23 and was transferred to [facility]. Patient was taken to the [...] Resource Strain: Medium Risk (01/29/2023) Received from [facility] Overall Financial Resource Strain (CARDIA) Difficulty of Paying Living Expenses: Somewhat hard Food Insecurity: No Food Insecurity (04/20/2023) Received from [facility] Hunger Screening Within the past 12 months we worried whether our food would run out before we got money to buy more.: Never True Within the past 12 months the food we bought just didn't last and we didn't have money to get more.: Never True Transportation Needs: No Transportation Needs (01/29/2023) Received from [facility] PRAPARE - Transportation Lack of Transportation (Medical): No Lack of Transportation (Non-Medical): No Physical Activity: Inactive (01/29/2023) Received from [facility] Exercise Vital Sign Days of Exercise per Week: 0 days Minutes of Exercise per Session: 0 min Stress: Stress Concern Present (01/29/2023) Received from [facility] [employer] - Occupational Stress Questionnaire Feeling of Stress : To some extent Social Connections: Socially Isolated (01/29/2023) Received from [facility] Social Connection and Isolation Panel [NHANES] Frequency of Communication with Friends and Family: Once a week Frequency of Social Gatherings with Friends and Family: Three times a week Attends Taoist Services: Never Active Member of Clubs or Organizations: No Attends Club or Organization Meetings: Never Marital Status: Intimate Partner Violence: Not At Risk (01/29/2023) Received from [facility] Humiliation, Afraid, Rape, and Kick questionnaire Fear [...] ON (more content not included)... Normal [facility] Supervisor Sleeping Bag Department Authentication Interface Message Text Wound Ostomy Continence [...] the medical images provided and chart review, WO Nursing recommendations are as follows: 1. B/L [...] If/when up in chair, please use a Tier 1 Performance chair cushion (#[phone]) to assist with pressure redistribution. Continue using foam wedges to alternate right/left every hour if/when up in chair. Remove enough of the ointment to assess skin prior to reapplying ointment. (S[employer]Care contains petrolatum and zinc oxide). Patient is at an increased risk for skin breakdown due to frequent moisture exposure. If/when a break in the skin occurs, please re-consult [facility] Nursing for updated treatment recommendations. Additional [...] bed to one underpad only re-consult with [facility] Nursing Team as needed CARRILLO ReynaN RN, CWOCN Normal [facility] Supervisor Sleeping Bag Department Authentication Interface Message Text -- Attestation signed [...] to proceed with surgery. Colt Live, DO -- Orthopaedic Surgery Consult H AND P Requesting Provider / Service: Trauma CC: Right hip pain HPI: 72 year old female with PMH of T2DM, neuropahty, MARGARITA, epilepsy, emphysema, CHF, afib, CKD stage 3b, depression, anxiety presents to [facility] c/o right hip pain after falling. She was transferred from [facility]. She admits to a ground level fall [...] Resource Strain: Medium Risk (01/29/2023) Received from [facility] Overall Financial Resource Strain (CARDIA) Difficulty of Paying Living Expenses: Somewhat hard Food Insecurity: No Food Insecurity (04/20/2023) Received from [facility] Hunger Screening Within the past 12 months we worried whether our food would run out before we got money to buy more.: Never True Within the past 12 months the food we bought just didn't last and we didn't have money to get more.: Never True Transportation Needs: No Transportation Needs (01/29/2023) Received from [facility] PRAPARE - Transportation Lack of Transportation (Medical): No Lack of Transportation (Non-Medical): No Physical Activity: Inactive (01/29/2023) Received from [facility] Exercise Vital Sign Days of Exercise per Week: 0 days Minutes of Exercise per Session: 0 min Stress: Stress Concern Present (01/29/2023) Received from [facility] [employer] - Occupational Stress Questionnaire Feeling of Stress : To some extent Social Connections: Socially Isolated (01/29/2023) Received from [facility] Social Connection and Isolation Panel [NHANES] Frequency of Communication with Friends and Family: Once a week Frequency of Social Gatherings with Friends and Family: Three times a week Attends Taoist Services: Never Active Member of Clubs or Organizations: No Attends Club or Organization Meetings: Never Marital Status: Intimate Partner Violence: Not At Risk (01/29/2023) Received from [facility] Humiliation, Afraid, Rape, and Kick questionnaire Fear [...] MD (more content not included)... Normal [facility] ELECTROLYTESon 05-14-2023 Chloride [Moles/Vol] 100 mmol/L Normal 98-107 [facility] Comment on above: Performed By: #### C R BGA, CR GLU, CR ICA, CR COOX, CR LYTES, LACT #### [facility] [address] [place] [address], Potassium [Moles/Vol] 3.2 mmol/L Low 3.5-5.0 [facility] Comment on above: Performed By: #### C R BGA, CR GLU, CR ICA, CR COOX, CR LYTES, LACT #### [facility] [address] [place] [address], Sodium [Moles/Vol] 135 mmol/L Low 136-146 [facility] Comment on above: Performed By: #### C R BGA, CR GLU, CR ICA, CR COOX, CR LYTES, LACT #### [facility] [address] [place] [address], GLUCOSE, FINGERSTICK-IN OFFI CEon 05-14-2023 Glucose [Mass/Vol] 184 mg/dL High 80-116 [facility] Comment on above: Performed By: #### C R BGA, CR GLU, CR ICA, CR COOX, CR LYTES, LACT #### [facility] [address] [place] [address], Glucose [Mass/Vol] 166 mg/dL High 80-116 [facility] Comment on above: Performed By: #### C R BGA, CR GLU, CR ICA, CR COOX, CR LYTES, LACT #### [facility] [address] [place] [address], Glucose [Mass/Vol] 120 mg/dL High 80-116 [facility] Comment on above: Performed By: #### C R BGA, CR GLU, CR ICA, CR COOX, CR LYTES, LACT #### [facility] [facility] [address] [place] [address], Glucose [Mass/Vol] 143 mg/dL High 80-116 [facility] Comment on above: Performed By: #### 8 2948 ####NURSING GLUCOSE OWCBEBH[address] [place], [address] GLUCOSE, WHOLE BLOODon 05-14 CR GLU 146 mg/dL High 70-105 The [facility] Comment on above: Performed By: #### C R BGA, CR GLU, CR ICA, CR COOX, CR LYTES, LACT #### [facility] [address] [place] [address], LACTIC ACIDon 05-14-2023 CR LACT 0.8 mmol/L Normal 0.5-1.6 [facility] Comment on above: Performed By: #### C R BGA, CR GLU, CR ICA, CR COOX, CR LYTES, LACT #### S PATHOLOGY LABORATORY [address] [place] [address], OP Noteon 05-14-2023 Supervisor Sleeping Bag Department Authentication Interface Message Text Kate Hagen CSN: [id number] : 1950 Date of surgery: 05/14/23 Preop Dx: Closed, neurovascularly intact right intertrochanteric femur fracture Postop Dx: Same Procedure: Intramedullary ramon placement (CPT 14653) Use and interpretation of operating fluoroscopy less than 1 hour (CPT 15929) Surgeon: Roberto Resident/Fellow: Franck Cho Anesthesia: GETA Findings: Consistent with preoperative diagonsis Tourniquet: Not used EBL: 50 ccs Specimens: * No specimens in log * Complications: None Implants: Implant Name Type Inv. Item Serial No. Swing Manager Lot No. LRB No. Used Action GAMMA LONG NAIL RIGHT 10MM X 360MM 130DEG STERILE Nail Rods AND Pins Edison [id number] Right 1 Implanted SCR BN 5MM 60MM T2 ALPHA LCK EA1 [id number] - [id number] Screw SCR BN 5MM 60MM T2 ALPHA LCK EA1 [id number] Edison [id number] Right 1 Implanted SCR BN 5MM 45MM T2 ALPHA LCK EA1 [id number] - [id number] Screw SCR BN 5MM 45MM T2 ALPHA LCK EA1 [id number] Edison [id number] Right 1 Implanted SCR BN 10.5MM 85MM GMA LG STRL EA1 [id number] - [id number] Screw SCR BN 10.5MM 85MM GMA LG STRL EA1 [id number] Deep [id number] Right 1 Implanted Indications: This is a 72 year old female who sustained the above injury after a fall. She was evaluated by the orthopaedic surgery resident business systems consultant and found to have a closed and [...] were administered. She was placed on a Ex[place]ior table in the supine position. A timeout [...] on behalf of Dr. Live Normal [facility] PARTIAL THROMBOPLASTIN TIMEo n 05-14-2023 aPTT Coag (Bld) [Time] 31 s Normal 25-37 [facility] Comment on above: Performed By: #### 8 2948 #### NURSING GLUCOSE PROGRAM [address] [facility] [place], [address] PROTHROMBIN TIME AND INRon 0 05-14-2023 INR Coag (PPP) [Relative time] 1.30 {INR} High 0.90-1.10 [facility] Comment on above: Performed By: #### 8 2948 #### NURSING GLUCOSE PROGRAM [address] [facility] [place], [address] PT Coag (PPP) [Time] 14.6 s High 9.7-12.9 [facility] Comment on above: Performed By: #### 8 2948 #### NURSING GLUCOSE PROGRAM [address] [place], [address] Procedureson 05-14-2023 Supervisor Sleeping Bag Department Authentication Interface Message Text Transthoracic Echocardiographic Report Name: XIAO SALAZAR Interpreting DAVID Perez Physician: : [id number] Referring PETRONA DENIS MD Physician: Age: 72 Electric Brain Wave Equipment Mechanic: Thalia Conti RDCS Exam Date: 05/14/2023 Fellow: [...] Doctor's order(s) verified. Patient's preferred language is Greenlandic . Verbal consent for left heart echo [...] details. Authenticated by: Invalid Interpretation Code [facility] Progress Noteson 05-14-2023 Supervisor Sleeping Bag Department Authentication Interface Message Text Home medications reviewed [...] PRN - 3L home oxygen Normal [facility] Supervisor Sleeping Bag Department Authentication Interface Message Text ---- GENERAL INFORMATION [...] mandibular fracture with TMJ dislocation. Transferred to [facility] for operative intervention. Hospital Course: 05/13/23: Transferred to [facility] for R hip fracture, L mandibular fracture [...] catheter from OSH) BM: Last BM documented [employer] SALES REPRESENTATIVE PHYSICAL EXAM Vital Signs: Vital sign ranges [...] RDW Plt PT aPTT INR 05/13/234 31 05/13/234 1.30 05/13/232333 9.7 2.98 9.4 27.0 91 [...] Incidental Findings: None on imaging obtained at [facility] (CRK, 05/14/23) Plan: Neurological: Acute pain due to trauma. 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 Normal [facility] Supervisor Sleeping Bag Department Authentication Interface Message Text Trauma Surgery Updated [...] Hernández MD Resident Physician Trauma Surgery Pager: [phone] Normal [facility] TYPE AND SCREENon 05-14-2023 ABO and Rh group Nom (Bld) Blood group O Rh(D) positive Normal [facility] Comment on above: Performed By: #### C R BGA, CR GLU, CR ICA, CR COOX, CR LYTES, LACT #### [facility] PATH[facility]ORATORY [address] [place], [place], ABO and Rh group Nom (Bld) No Previous Results Normal [facility] Comment on above: Performed By: #### C R BGA, CR GLU, CR ICA, CR COOX, CR LYTES, LACT #### [facility] PATH[facility] [address] [place], [place], ABSC INT Negative Normal [facility] Comment on above: Performed By: #### C R BGA, CR GLU, CR ICA, CR COOX, CR LYTES, LACT #### [facility] [address] [place], [place], XR CHEST AP OR PA 1 VIEWon 0 05-14-2023 XR CHEST AP OR PA 1 VIEW EXAMINATION: XR CHEST AP OR PA 1 VIEW 05/13/2023 11:15 PM CLINICAL HISTORY: Trauma, blunt; preop ASSOCIATED DIAGNOSIS: Trauma, blunt preop ORDERING PROVIDER: LAURAARMIN HERNÁNDEZ TECHNOLOGISTS NOTE: COMPARISON: None FINDINGS: Lines, tubes, and devices: None. Lungs and pleura: No focal pulmonary consolidation, effusion or pneumothorax. Cardiomediastinal silhouette: Normal cardiomediastinal silhouette. Musculoskeletal: Age indeterminate proximal left humerus fracture is partially visualized. IMPRESSION: No acute cardiopulmonary abnormality identified. MACRO: None Normal [facility] XR FEMUR RIGHT MINIMUM 2 VIE WSon 05-14-2023 XR FEMUR RIGHT MINIMUM 2 VIEWS EXAMINATION: XR FEMUR RIGHT MINIMUM 2 VIEWSPRO/RT 05/14/2023 03:52 AM CLINICAL HISTORY: trauma ASSOCIATED DIAGNOSIS: ORDERING PROVIDER: LAURAARMIN HERNÁNDEZ TECHNOLOGISTS NOTE: COMPARISON: None IMPRESSION: Intertrochanteric femur fracture with angulation. No dislocation. Right femur MACRO: None Normal [facility] XR HIP RIGHT W/ PELVIS MIN [...] joint. Right hip MACRO: None Normal [facility] H AND Guille 05-13-2023 Supervisor Sleeping Bag Department Authentication Interface Message Text -- Attestation signed [...] and Emergency General Surgery Department of Surgery [facility] Department of Surgery Division of Trauma Surgery, Acute Care Surgery, Critical Care, and [place] TRAUMA SURGERY HISTORY AND PHYSICAL Kate Hagen [id number] BASIC INJURY INFORMATION: Level of activation: Trauma transfer from OSH direct admit Mode of transport: Ambulance: transfer from [facility] Mechanism of injury: Fall from ground level [...] daughters and niece lives with Daughter: Kirstin mando pt would like us to talk to her about medical history and care Living status: Home Primary language: Greenlandic Functional status: Partly dependent Impairments: Impaired mobility [...] ordered (more content not included)... Normal [facility] CT BRAIN WO CONTon CT BRAIN [...] Lin MD on 05/07/2023 5:32 PM Normal [facility] Screenson 04-30-2023 Screens [id number]#[id number] Normal [facility] Heart TransthoracicOrdere d By: Colin Levy on 04-30-2023 Aortic Valve Area by Continuity of Peak Velocity 1.21 [facility] Work Phone: [phone] Aortic Valve Area by Continuity of VTI 1.29 [facility] Work Phone: [phone] AV mn grad 15.0 [facility] Work Phone: [phone] AV pk grad 28.9 [facility] Work Phone: [phone] AV pk amrit 2.69 [facility] Work Phone: [phone] LV A4C EF 43.9 [facility] Work Phone: [phone] LVIDd 3.90 [facility] Work Phone: [phone] LVOT diam 2.10 [facility] Work Phone: MV avg E/e' ratio 18.50 [facility] Work Phone: MV E/A ratio 0.76 [facility] Work Phone: RVSP 34.6 [facility] Work Phone: [facility] Work Phone: Heart Transthoracicon [address], [address] [address] TRANSTHORACIC ECHOCARDIOGRAM REPORT Patient Name: KATE Cuba Physician: [id number] Colin Levy MD, [facility] Study Date: 04/29/2023 Ordering Provider: [id number] ANNIKA KABA MRN/PID: [id number] Fellow: Nurse: Date of /Age: 8 1950 / 72 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 Gender: F Additional Staff: Height: 152.40 cm Admit Date: Weight: 72.58 kg Admission Status: BSA: 1.70 m2 Department Location: [facility] Blood Pressure: 122 /64 mmHg Study Type: TRANSTHORACIC ECHO (TTE) COMPLETE Diagnosis/ICD: Nonrheumatic aortic (valve) stenosis-I35.0 Indication: Paroxysmal Atrial Fibrillation, COPD-on O2 at 2-3l, Diabetes, HTN, Hyperlipidemia, Tobacco Abuse, CKD-Stage III, Pulmonary HTN CPT Codes: Echo Complete w Full Doppler-89306 Study Detail: The following Echo studies were [...] 0.9 m/s (0.6-0.9m/s) PV Max P.3 mmHg [id number] Colin Levy MD, [facility] Electronically signed on 04/30/2023 at 3:47:08 PM Final (more content not included)... [facility] Work Phone: Ambulatory Visit Summaryon 1 06-29-2022 Ambulatory Visit Summary KATE HAGEN :1950 Visit Date:04/28/2023 Ambulatory Visit Instructions Your Diagnosis Recurrent UTI Pneumaturia Adrenal mass Urinary retention Renal cyst Urgency of urination Your Care Team Attending Physician - Alec XIE, Jacqui Nieves Primary Care Physician - JUSTICE XIE, BARRY Pearson Referring Physician - Alec XIE, Jaqcui Nieves This Is Your Medications List estradiol [...] PM EST With: Lani Wasserman CNP Where: [facility] Normal [facility] [place] Ambulatory Visit Summary KATE HAGEN :1950 Visit Date:04/28/2023 Ambulatory Visit Instructions Your Diagnosis Recurrent UTI Pneumaturia Adrenal mass Urinary retention Renal cyst Urgency of urination Your Care Team Attending Physician - Jacqui Michael MD. Primary Care Physician - BARRY BARBER MD [...] PM EST With: Lani Wasserman CNP Where: [facility] Normal [facility] Patient Educationon 04-28-20 Patient Education Obstetrics and [...] these instructions at home: Medicines ? Take vppn-zln-qirxyyi and prescription medicines only as told by [...] Reviewed: 11/29/2020 Elsevier Patient Education ? 2022 [employer]. [facility] Urology Office/Clinic Noteon 04-28-2023 Urology Office/Clinic [...] due to (more content not included)... Normal [facility] Comment on above: Result Comment: Elec tronically Signed By: Jacqui Michael MD\.br\Date and Time Signed: 04/28/23 10:55 EST\.br\Electronically Co-Signed By: Brisa Russell\.br\Date and Time Co-Signed: 04/28/23 10:25 EST Physician Referralon 023 Physician Referral [id number]#[id number] [facility] Physician Referralon 023 Physician Referral [id number]#[id number] [facility] Office Visit (Cardiology)on 12-28-2022 Follow-up visit [...] depressive disorder PHQ2 Screen Positive; Status:Complete; Done: [id number] Overweight with body mass index (BMI) of 29 to 29.9 in adult Healthy Weight Tips; Status:Complete; Done: [id number] SocHx: Current smoker Tobacco Use Screening; Status:Complete; Done: [id number] You need to stop smoking. Though it is not easy, more than half of all adult smokers have quit. We encourage you to write down all the reasons you should quit smoking and set a quit date for yourself. Ask us how we can help. You may also call 6-352-BHPHNOW for free resources and assistance.; Status:Complete; Done: [id number] Tobacco Use Screening; Status:Complete; Done: [id number] Patient Instructions Please bring all medicines, vitamins, [...] to continue without modifications. 2. Records from [facility] 3. Return for follow-up; in the interim, contact the office if new symptoms arise. Dr. Arriaga 4 months [facility] f/u: 'doing ok' KATE HAGEN is being seen for follow-up of a hospitalization for dyspnea. Patient presents to the office in a wheelchair, utilizing oxygen and is accompanied by family member. This is initial in clinic follow-up at [facility]. She has previously been managed by [facility] since approximately 2021. Both she and [...] are requesting to establish cardiology follow-up with [facility]. October 2022 hospitalized at [facility] due to shortness of breath, seen in consultation by Dr. Jean. Echocardiogram at that time showed moderate aortic stenosis peak 46, mean 26. She was diuresed and some documentation that she was to follow-up with nephrology (not completed to date). [facility] but is currently [...] regular basis (more content not included)... Normal [facility] Tobacco Screening.on 023 Adult depression screening assessment Yes [facility] [address] DO Work Phone: [phone] Adult depression screening assessment Moderate (10-14) [facility] [address] DO Work Phone: Fall risk assessment a) No falls within the last year [facility] [place] [address] DO Work Phone: Tobacco use status CP a) Yes [facility] [address] DO Work Phone: Tobacco Screening. Yes [facility] [address] DO Work Phone: Tobacco Screening. 1-Several days [facility] [address] DO Work Phone: Tobacco Screening. 3-Nearly every day [facility] [address] DO Work Phone: Tobacco Screening. 0-Not at all [facility] [address] DO Work Phone: Tobacco Screening. Somewhat Difficult [facility] [address] DO Work Phone: [phone] Automated basophil %Ordered By: Gina Poole on 11-21-2022 Basophils/100 WBC (Bld) 0.3 % Normal . [facility] Comment on above: Performed By: #### G LULS #### Point of Care testing , Automated basophil countOrde red By: Gina Poole on 11-21-2022 Basophils (Bld) [#/Vol] 0.0 10*3/uL Normal 0.0-0.2 [facility] Comment on above: Result Comment: PERF ORMED BY: [facility] [address] [place] [address] PATHOLOGIST [employer]IME PLANT OPERATOR HELPER KOBE VENCES M.D. Performed By: #### G LULS #### Point of Care testing , Automated blood monocyte cou ntOrdered By: Gina Poole on 11-21-2022 Monocytes (Bld) [#/Vol] 0.4 10*3/uL Normal 0.0-0.8 [facility] Comment on above: Performed By: #### G LULS #### Point of Care testing , Automated eosinophil %Ordere d By: Gina Poole on 11-21-2022 Eosinophils/100 WBC (Bld) 2.7 % Normal . [facility] Comment on above: Performed By: #### G LULS #### Point of Care testing , Automated eosinophil countOr dered By: Gina Poole on 11-21-2022 Eosinophils (Bld) [#/Vol] 0.2 10*3/uL Normal 0.0-0.45 [facility] Comment on above: Performed By: #### G LULS #### Point of Care testing , Automated monocyte %Ordered By: Gina Poole on 11-21-2022 Monocytes/100 WBC (Bld) 7.3 % Normal . [facility] Comment on above: Performed By: #### G LULS #### Point of Care testing , Automated neutrophil %Ordere d By: Gina Poole on 11-21-2022 Neutrophils/100 WBC (Bld) 70.8 % Normal . [facility] Comment on above: Performed By: #### G LULS #### Point of Care testing , Basic Metabolic Panelon 11-01 Anion gap [Moles/Vol] Not performed Normal 6.0-15.0 [facility] Comment on above: Performed By: #### G LULS #### Point of Care testing , Creatinine Clr Calc Pharmacy 29.80 Normal [facility] Comment on above: Result Comment: PERF ORMED BY: [place] [address] [place] [address] PATHOLOGIST [employer] PL[employer] OPERATOR HELPER KOBE VENCES M.D. Performed By: #### G LULS #### Point of Care testing , GFR/1.73 sq M.predicted MDRD (S/P/Bld) [Vol rate/Area] 35.431 mL/min/{1.73_m2} Normal [facility] Comment on above: Performed By: #### G LULS #### Point of Care testing , Calcium [Mass/volume] in Ser um or PlasmaOrdered By: Gina Poole on 11-21-2022 Calcium [Mass/Vol] 9.4 mg/dL Normal 8.6-10.3 [facility] Comment on above: Performed By: #### G LULS #### Point of Care testing , Capillary blood glucose hakeem urement by glucometer (mass/volume)Ordered By: Gina Poole on 11-21-2022 Glucose [Mass/Vol] 149 mg/dL Normal [facility] Comment on above: Random Glucose Refer ence Range is dependent on time and content of last meal. Glucose of more than 200 mg/dL in a nonstressed, ambulatory subject supports the diagnosis of Diabetes Mellitus. Result Comment: [facility][note 2] Glucose Reference Range is dependent on time and content of last meal. Glucose of more than 200 mg/dL in a nonstressed, ambulatory subject supports the diagnosis of Diabetes Mellitus. PERFORMED BY: [place] [address] PATHOLOGIST [employer]IME PL[employer] OPERATOR HELPER KOBE VENCES M.D. Performed By: #### C AION #### [facility] , #### HEPATIC, HS TROP, BMP, MG, PTT, CK, BNP, PT, CBC #### [facility] [address] [place] [address] Carbon dioxide, total [Moles /volume] in Serum or PlasmaOrdered By: Gina Poole on 11-21-2022 CO2 [Moles/Vol] mmol/L High 21.0-31.0 [facility] Comment on above: Performed By: #### G LULS #### Point of Care testing , Chloride [Moles/volume] in S arti or PlasmaOrdered By: Gina Poole on 11-21-2022 Chloride [Moles/Vol] 92 mmol/L Low 98-107 [facility] Comment on above: Performed By: #### G DANIELALS #### Point of Care testing , Complete Blood Count Auto Di ffon 11-21-2022 Mean Corpuscular HGB Conc 32.3 g/dL Normal 32.0-35.0 [facility] Comment on above: Performed By: #### G DANIELALS #### Point of Care testing , NRBC% 0.1 /100{WBC} Normal 0-0.5 [facility] Comment on above: Performed By: #### G DANIELALS #### Point of Care testing , Creatinine [Mass/volume] in Serum or PlasmaOrdered By: Gina Poole on 11-21-2022 Creatinine [Mass/Vol] 1.54 mg/dL High 0.60-1.20 [facility] Comment on above: Performed By: #### G TASHA #### Point of Care testing , Erythrocyte distribution wid th [Ratio] by Automated countOrdered By: Gina Poole on 11-21-2022 Erythrocyte distribution width (RBC) [Ratio] 15.2 % Normal 11.9-15.3 [facility] Comment on above: Performed By: #### G DANIELALS #### Point of Care testing , Erythrocytes [#/volume] in B lood by Automated countOrdered By: Gina Poole on 11-21-2022 RBC (Bld) [#/Vol] 2.75 10*6/uL Low 3.60-5.00 [facility] Comment on above: Performed By: #### G LULS #### Point of Care testing , Glucose Poct Glucometerson 0 11-21-2022 Glucose [Mass/Vol] 118 mg/dL Normal [facility] Comment on above: Result Comment: [facility] [place][note 2] Glucose Reference Range is dependent on time and content of last meal. Glucose of more than 200 mg/dL in a nonstressed, ambulatory subject supports the diagnosis of Diabetes Mellitus. PERFORMED BY: [address] [place] [address] PATHOLOGIST [employer]IME PL[employer] OPERATOR HELPER KOBE VENCES M.D. Performed By: #### C CHITRA #### [facility] , #### HEPATIC, HS TROP, BMP, MG, PTT, CK, BNP, PT, CBC #### [facility] [address] Glucose [Mass/volume] in Ser um or PlasmaOrdered By: Gina Poole on 11-21-2022 Glucose [Mass/Vol] 95 mg/dL Normal 70-100 [facility] Comment on above: ADA recommended refe rence rangeRandom Glucose Reference Range is dependent on time and content of last meal. Glucose of more than 200 mg/dL in a nonstressed, ambulatory subject supports the diagnosis of Diabetes Mellitus. Result Comment: [place] [facility] Glucose Reference Range is dependent on time and content of last meal. Glucose of more than 200 mg/dL in a nonstressed, ambulatory subject supports the diagnosis of Diabetes Mellitus. ADA recommended reference range Performed By: #### G TASHA #### Point of Care testing , Hematocrit [Volume Fraction] of Blood by Automated countOrdered By: Gina Poole on 11-21-2022 Hematocrit (Bld) [Volume fraction] 24.7 % Low 34.0-46.4 [facility] Comment on above: Performed By: #### G TASHA #### Point of Care testing , Hemoglobin [Mass/volume] in BloodOrdered By: Gina Poole on 11-21-2022 Hemoglobin (Bld) [Mass/Vol] 8.0 g/dL Low 11.8-15.4 [facility] Comment on above: Performed By: #### G TASHA #### Point of Care testing , Leukocytes [#/volume] correc loan for nucleated erythrocytes in Blood by Automated counOrdered By: Gina Poole on 11-21-2022 WBC corrected for nucl RBC Auto (Bld) [#/Vol] 5.7 10*3/uL 3.8-11.6 [facility] Leukocytes [#/volume] in Blo od by Automated countOrdered By: Gina Poole on 11-21-2022 WBC (Bld) [#/Vol] 5.7 10*3/uL Normal 3.8-11.6 [facility] Comment on above: Performed By: #### G DANIELALS #### Point of Care testing , Lymphocytes [#/volume] in Bl ood by Automated countOrdered By: Gina Poole on 11-21-2022 Lymphocytes (Bld) [#/Vol] 1.1 10*3/uL Normal 1.00-4.8 [facility] Comment on above: Performed By: #### G LULS #### Point of Care testing , Lymphocytes/100 leukocytes i n Blood by Automated countOrdered By: Gina Poole on 11-21-2022 Lymphocytes/100 WBC (Bld) 18.9 % Normal . [facility] Comment on above: Performed By: #### G DANIELALS #### Point of Care testing , MCH [Entitic mass] by [employer] loan countOrdered By: Gina Poole on 11-21-2022 MCH (RBC) [Entitic mass] 29.0 pg Normal 24.7-34.3 [facility] [facility] Comment on above: Performed By: #### G DANIELALS #### Point of Care testing , MCHC Auto (RBC) [Mass/Vol]Or dered By: Gina Poole on 11-21-2022 MCHC (RBC) [Mass/Vol] 32.3 g/dL 32.0-35.0 [facility] MCV [Entitic volume] by Auto mated countOrdered By: Gina Poole on 11-21-2022 MCV (RBC) [Entitic vol] 89.8 fL Normal 80-100 [facility] Comment on above: Performed By: #### G DANIELALS #### Point of Care testing , Neutrophils [#/volume] in Bl ood by Automated countOrdered By: Gina Poole on 11-21-2022 Neutrophils (Bld) [#/Vol] 4.1 10*3/uL Normal 1.8-7.7 [facility] Comment on above: Performed By: #### G LULS #### Point of Care testing , No Panel InformationOrdered By: Gina Poole on 11-21-2022 Estimated GFR (CKD-EPI) 35.431 mL/Min [facility] Creatinine Clearance (Chem 29.80 [facility] Nucleated erythrocytes [Pres ence] in Blood by Automated countOrdered By: Gina Poole on 11-21-2022 Nucleated RBC Auto Ql (Bld) 0.1 /100{WBC} 0-0.5 [facility] Platelet mean volume [Entiti c volume] in Blood by Automated countOrdered By: Gina Poole on 11-21-2022 Platelet mean volume (Bld) [Entitic vol] 7.8 fL Normal 6.3-10.7 [facility] Comment on above: Performed By: #### G LULS #### Point of Care testing , Platelets [#/volume] in Bloo d by Automated countOrdered By: Gina Poole on 11-21-2022 Platelets (Bld) [#/Vol] 132 10*3/uL Low 150-450 [facility] Comment on above: Performed By: #### G LULS #### Point of Care testing , Potassium [Moles/volume] in Serum or PlasmaOrdered By: Gina Poole on 11-21-2022 Potassium [Moles/Vol] 4.6 mmol/L Normal 3.5-5.1 [facility] Comment on above: Performed By: #### G LULS #### Point of Care testing , Serum or plasma anion gap de terminationOrdered By: Gina Poole on 11-21-2022 Anion gap [Moles/Vol] TNP [facility] Comment on above: Test not performed Sodium [Moles/volume] in Ser um or PlasmaOrdered By: Gina Poole on 11-21-2022 Sodium [Moles/Vol] 141 mmol/L Normal 136-145 [facility] Comment on above: Performed By: #### G LULS #### Point of Care testing , Urea nitrogen [Mass/volume] in Serum or PlasmaOrdered By: Gina Poole on 11-21-2022 Urea nitrogen [Mass/Vol] 35 mg/dL High 7-25 [facility] Comment on above: Performed By: #### G LULS #### Point of Care testing , XR chest 2V*on 11-21-2022 XR chest 2V* [place] [address] XRay Report Signed Patient: Kate Hagen MR#: [id number] 52 : 1950 Acct:[id number] Age/Sex: 71 / F ADM Date: 11/18/22 Loc: Room: [address] [place] [address] Type: ADM IN Attending Dr: Gina Poole [...] Candace Godfrey M.D.11/21/2022 9:26 AM Dictation Location: [place] [address] Transcribed By: [facility] 11/21/22925 Dictated By: Candace Godfrey II, MD 11/21/22923 Signed By: 11/21/22925 Normal [facility] Basic Metabolic Panelon 07- Anion gap [Moles/Vol] 7.5 mmol/L Normal 6.0-15.0 [facility] Comment on above: Performed By: #### G LULS #### Point of Care testing , Calcium [Mass/Vol] 8.7 mg/dL Normal 8.6-10.3 [facility] Comment on above: Performed By: #### G LULS #### Point of Care testing , Chloride [Moles/Vol] 99 mmol/L Normal 98-107 [facility] Comment on above: Performed By: #### G LULS #### Point of Care testing , CO2 [Moles/Vol] 42.2 mmol/L High 21.0-31.0 [facility] Comment on above: Performed By: #### G LULS #### Point of Care testing , Creatinine [Mass/Vol] 1.73 mg/dL High 0.60-1.20 [facility] Comment on above: Performed By: #### G LULS #### Point of Care testing , Creatinine Clr Calc Pharmacy 26.49 Normal [facility] Comment on above: Result Comment: PERF ORMED BY: [facility] [address] [place] [address] PATHOLOGIST [employer] HELPER KOBE VENCES M.D. Performed By: #### G LULS #### Point of Care testing , GFR/1.73 sq M.predicted MDRD (S/P/Bld) [Vol rate/Area] 30.815 mL/min/{1.73_m2} Normal [facility] Comment on above: Performed By: #### G LULS #### Point of Care testing , Glucose [Mass/Vol] 104 mg/dL High 70-100 [facility] Comment on above: Result Comment: [facility] [place][note 2] Glucose Reference Range is dependent on time and content of last meal. Glucose of more than 200 mg/dL in a nonstressed, ambulatory subject supports the diagnosis of Diabetes Mellitus. ADA recommended reference range Performed By: #### G LULS #### Point of Care testing , Potassium [Moles/Vol] 4.7 mmol/L Normal 3.5-5.1 [facility] Comment on above: Performed By: #### G LULS #### Point of Care testing , Sodium [Moles/Vol] 144 mmol/L Normal 136-145 [facility] Comment on above: Performed By: #### G LULS #### Point of Care testing , Urea nitrogen [Mass/Vol] 33 mg/dL High 7-25 [facility] Comment on above: Performed By: #### G LULS #### Point of Care testing , Complete Blood Count Auto Di ffon 11-20-2022 Basophils (Bld) [#/Vol] 0.0 10*3/uL Normal 0.0-0.2 [facility] Comment on above: Result Comment: PERF ORMED BY: [facility] [place] [address] PATHOLOGIST [employer] OPER[employer] HELPER KOBE VENCES M.D. Performed By: #### G LULS #### Point of Care testing , Basophils/100 WBC (Bld) 0.4 % Normal . [facility] Comment on above: Performed By: #### G LULS #### Point of Care testing , Eosinophils (Bld) [#/Vol] 0.1 10*3/uL Normal 0.0-0.45 [facility] Comment on above: Performed By: #### G LULS #### Point of Care testing , Eosinophils/100 WBC (Bld) 2.1 % Normal . [facility] Comment on above: Performed By: #### G LULS #### Point of Care testing , Erythrocyte distribution width (RBC) [Ratio] 15.6 % High 11.9-15.3 [facility] Comment on above: Performed By: #### G LULS #### Point of Care testing , Hematocrit (Bld) [Volume fraction] 24.9 % Low 34.0-46.4 [facility] Comment on above: Performed By: #### G LULS #### Point of Care testing , Hemoglobin (Bld) [Mass/Vol] 8.0 g/dL Low 11.8-15.4 [facility] Comment on above: Performed By: #### G LULS #### Point of Care testing , Lymphocytes (Bld) [#/Vol] 1.2 10*3/uL Normal 1.00-4.8 [facility] Comment on above: Performed By: #### G LULS #### Point of Care testing , Lymphocytes/100 WBC (Bld) 22.4 % Normal . [facility] Comment on above: Performed By: #### G LULS #### Point of Care testing , MCH (RBC) [Entitic mass] 28.9 pg Normal 24.7-34.3 [facility] Comment on above: Performed By: #### G LULS #### Point of Care testing , MCV (RBC) [Entitic vol] 90.0 fL Normal 80-100 [facility] Comment on above: Performed By: #### G LULS #### Point of Care testing , Mean Corpuscular HGB Conc 32.1 g/dL Normal 32.0-35.0 [facility] Comment on above: Performed By: #### G LULS #### Point of Care testing , Monocytes (Bld) [#/Vol] 0.4 10*3/uL Normal 0.0-0.8 [facility] Comment on above: Performed By: #### G LULS #### Point of Care testing , Monocytes/100 WBC (Bld) 6.7 % Normal . [facility] Comment on above: Performed By: #### G LULS #### Point of Care testing , Neutrophils (Bld) [#/Vol] 3.7 10*3/uL Normal 1.8-7.7 [facility] Comment on above: Performed By: #### G LULS #### Point of Care testing , Neutrophils/100 WBC (Bld) 68.4 % Normal . [facility] Comment on above: Performed By: #### G LULS #### Point of Care testing , NRBC% 0.1 /100{WBC} Normal 0-0.5 [facility] Comment on above: Performed By: #### G LULS #### Point of Care testing , Platelet mean volume (Bld) [Entitic vol] 7.9 fL Normal 6.3-10.7 [facility] Comment on above: Performed By: #### G LULS #### Point of Care testing , Platelets (Bld) [#/Vol] 133 10*3/uL Low 150-450 [facility] Comment on above: Performed By: #### G LULS #### Point of Care testing , RBC (Bld) [#/Vol] 2.77 10*6/uL Low 3.60-5.00 [facility] Comment on above: Performed By: #### G LULS #### Point of Care testing , WBC (Bld) [#/Vol] 5.4 10*3/uL Normal 3.8-11.6 [facility] Comment on above: Performed By: #### G TASHA #### Point of Care testing , Glucose Poct Glucometerson 0 11-20-2022 Glucose [Mass/Vol] 135 mg/dL Normal [facility] Comment on above: Result Comment: [place] om Glucose Reference Range is dependent on time and content of last meal. Glucose of more than 200 mg/dL in a nonstressed, ambulatory subject supports the diagnosis of Diabetes Mellitus. PERFORMED BY: [place] [phone] PATHOLOGIST [employer] OPER[employer] HELPER KOBE VENCES M.D. Performed By: #### C AION #### [facility] , #### HEPATIC, HS TROP, BMP, MG, PTT, CK, BNP, PT, CBC #### [facility] [address] [place] [address] Glucose [Mass/Vol] 123 mg/dL Normal [facility] Comment on above: Result Comment: [place] om Glucose Reference Range is dependent on time and content of last meal. Glucose of more than 200 mg/dL in a nonstressed, ambulatory subject supports the diagnosis of Diabetes Mellitus. PERFORMED BY: [place] [address] PATHOLOGIST [employer] OPERATOR HELPER KOBE VENCES M.D. Performed By: #### C AION #### [facility] , #### HEPATIC, HS TROP, BMP, MG, PTT, CK, BNP, PT, CBC #### [facility] [address] [place] [address] Glucose [Mass/Vol] 116 mg/dL Normal [facility] Comment on above: Result Comment: [place] om Glucose Reference Range is dependent on time and content of last meal. Glucose of more than 200 mg/dL in a nonstressed, ambulatory subject supports the diagnosis of Diabetes Mellitus. PERFORMED BY: [place] [address] PATHOLOGIST [employer] OPERATOR HELPER KOBE VENCES M.D. Performed By: #### G LULS #### Point of Care testing , Glucose [Mass/Vol] 130 mg/dL Normal [facility] Comment on above: Result Comment: [facility] [place][note 2] Glucose Reference Range is dependent on time and content of last meal. Glucose of more than 200 mg/dL in a nonstressed, ambulatory subject supports the diagnosis of Diabetes Mellitus. PERFORMED BY: [place] [address] PATHOLOGIST [employer] OPERATOR HELPER KOBE VENCES M.D. Performed By: #### C AION #### [facility] , #### HEPATIC, HS TROP, BMP, MG, PTT, CK, BNP, PT, CBC #### [address] Basic Metabolic Panelon 07-2 -2022 Anion gap [Moles/Vol] 9.8 mmol/L Normal 6.0-15.0 [facility] Comment on above: Performed By: #### C AION #### [facility] , #### HEPATIC, HS TROP, BMP, MG, PTT, CK, BNP, PT, CBC #### [address] Calcium [Mass/Vol] 8.1 mg/dL Low 8.6-10.3 [facility] Comment on above: Performed By: #### C AION #### [facility] , #### HEPATIC, HS TROP, BMP, MG, PTT, CK, BNP, PT, CBC #### [address] Chloride [Moles/Vol] 101 mmol/L Normal 98-107 [facility] Comment on above: Performed By: #### C AION #### [facility] , #### HEPATIC, HS TROP, BMP, MG, PTT, CK, BNP, PT, CBC #### [address] CO2 [Moles/Vol] 38.1 mmol/L High 21.0-31.0 [facility] Comment on above: Performed By: #### C AION #### [facility] , #### HEPATIC, HS TROP, BMP, MG, PTT, CK, BNP, PT, CBC #### [facility] [address] Creatinine [Mass/Vol] 1.76 mg/dL High 0.60-1.20 [facility] Comment on above: Performed By: #### C AION #### [facility] , #### HEPATIC, HS TROP, BMP, MG, PTT, CK, BNP, PT, CBC #### [address] Creatinine Clr Calc Pharmacy 25.90 Normal [facility] Comment on above: Performed By: #### C AION #### [facility] , #### HEPATIC, HS TROP, BMP, MG, PTT, CK, BNP, PT, CBC #### [place] [address] [place] GFR/1.73 sq M.predicted MDRD (S/P/Bld) [Vol rate/Area] 30.185 mL/min/{1.73_m2} Normal [facility] Comment on above: Performed By: #### C AION #### [facility] , #### HEPATIC, HS TROP, BMP, MG, PTT, CK, BNP, PT, CBC #### [address] Glucose [Mass/Vol] 100 mg/dL Normal 70-100 [facility] Comment on above: Result Comment: [place] Glucose Reference Range is dependent on time and content of last meal. Glucose of more than 200 mg/dL in a nonstressed, ambulatory subject supports the diagnosis of Diabetes Mellitus. ADA recommended reference range Performed By: #### C AION #### [facility] , #### HEPATIC, HS TROP, BMP, MG, PTT, CK, BNP, PT, CBC #### [address] Potassium [Moles/Vol] 4.9 mmol/L Normal 3.5-5.1 [facility] Comment on above: Performed By: #### C AION #### [facility] , #### HEPATIC, HS TROP, BMP, MG, PTT, CK, BNP, PT, CBC #### [address] Sodium [Moles/Vol] 144 mmol/L Normal 136-145 [facility] Comment on above: Performed By: #### C AION #### [facility] , #### HEPATIC, HS TROP, BMP, MG, PTT, CK, BNP, PT, CBC #### [address] Urea nitrogen [Mass/Vol] 28 mg/dL High 7-25 [facility] Comment on above: Performed By: #### C AION #### [facility] , #### HEPATIC, HS TROP, BMP, MG, PTT, CK, BNP, PT, CBC #### [address] Complete Blood Count Auto Di ffon 11-19-2022 Basophils (Bld) [#/Vol] 0.0 10*3/uL Normal 0.0-0.2 [facility] Comment on above: Result Comment: PERF ORMED BY: [place] [address] PATHOLOGIST [employer] OPER[employer] HELPER KOBE VENCES M.D. Performed By: #### C AION #### [facility] , #### HEPATIC, HS TROP, BMP, MG, PTT, CK, BNP, PT, CBC #### [address] Basophils/100 WBC (Bld) 0.7 % Normal . [facility] Comment on above: Performed By: #### C AION #### [facility] , #### HEPATIC, HS TROP, BMP, MG, PTT, CK, BNP, PT, CBC #### [address] Eosinophils (Bld) [#/Vol] 0.1 10*3/uL Normal 0.0-0.45 [facility] Comment on above: Performed By: #### C AION #### [facility] , #### HEPATIC, HS TROP, BMP, MG, PTT, CK, BNP, PT, CBC #### [address] Eosinophils/100 WBC (Bld) 2.0 % Normal . [facility] Comment on above: Performed By: #### C AION #### [facility] , #### HEPATIC, HS TROP, BMP, MG, PTT, CK, BNP, PT, CBC #### [address] Erythrocyte distribution width (RBC) [Ratio] 15.5 % High 11.9-15.3 [facility] Comment on above: Performed By: #### C AION #### [facility] , #### HEPATIC, HS TROP, BMP, MG, PTT, CK, BNP, PT, CBC #### [address] Hematocrit (Bld) [Volume fraction] 26.7 % Low 34.0-46.4 [facility] Comment on above: Performed By: #### C AION #### [facility] , #### HEPATIC, HS TROP, BMP, MG, PTT, CK, BNP, PT, CBC #### [address] Hemoglobin (Bld) [Mass/Vol] 8.5 g/dL Low 11.8-15.4 [facility] Comment on above: Performed By: #### C AION #### [facility] , #### HEPATIC, HS TROP, BMP, MG, PTT, CK, BNP, PT, CBC #### [address] Lymphocytes (Bld) [#/Vol] 1.6 10*3/uL Normal 1.00-4.8 [facility] Comment on above: Performed By: #### C AION #### [facility] , #### HEPATIC, HS TROP, BMP, MG, PTT, CK, BNP, PT, CBC #### [address] Lymphocytes/100 WBC (Bld) 25.1 % Normal . [facility] Comment on above: Performed By: #### C AION #### [facility] , #### HEPATIC, HS TROP, BMP, MG, PTT, CK, BNP, PT, CBC #### [address] MCH (RBC) [Entitic mass] 29.0 pg Normal 24.7-34.3 [facility] Comment on above: Performed By: #### C AION #### [facility] , #### HEPATIC, HS TROP, BMP, MG, PTT, CK, BNP, PT, CBC #### [address] MCV (RBC) [Entitic vol] 91.3 fL Normal 80-100 [facility] Comment on above: Performed By: #### C AION #### [facility] , #### HEPATIC, HS TROP, BMP, MG, PTT, CK, BNP, PT, CBC #### [address] Mean Corpuscular HGB Conc 31.8 g/dL Low 32.0-35.0 [facility] Comment on above: Performed By: #### C AION #### [facility] , #### HEPATIC, HS TROP, BMP, MG, PTT, CK, BNP, PT, CBC #### [address] Monocytes (Bld) [#/Vol] 0.4 10*3/uL Normal 0.0-0.8 [facility] Comment on above: Performed By: #### C AION #### [facility] , #### HEPATIC, HS TROP, BMP, MG, PTT, CK, BNP, PT, CBC #### [address] Monocytes/100 WBC (Bld) 6.6 % Normal . [facility] Comment on above: Performed By: #### C AION #### [facility] , #### HEPATIC, HS TROP, BMP, MG, PTT, CK, BNP, PT, CBC #### [address] Neutrophils (Bld) [#/Vol] 4.1 10*3/uL Normal 1.8-7.7 [facility] Comment on above: Performed By: #### C AION #### [facility] , #### HEPATIC, HS TROP, BMP, MG, PTT, CK, BNP, PT, CBC #### [address] Neutrophils/100 WBC (Bld) 65.6 % Normal . [facility] Comment on above: Performed By: #### C AION #### [facility] , #### HEPATIC, HS TROP, BMP, MG, PTT, CK, BNP, PT, CBC #### [address] NRBC% 0.1 /100{WBC} Normal 0-0.5 [facility] Comment on above: Performed By: #### C AION #### [facility] , #### HEPATIC, HS TROP, BMP, MG, PTT, CK, BNP, PT, CBC #### [address] Platelet mean volume (Bld) [Entitic vol] 7.6 fL Normal 6.3-10.7 [facility] Comment on above: Performed By: #### C AION #### [facility] , #### HEPATIC, HS TROP, BMP, MG, PTT, CK, BNP, PT, CBC #### [address] Platelets (Bld) [#/Vol] 140 10*3/uL Low 150-450 [facility] Comment on above: Performed By: #### C AION #### [facility] , #### HEPATIC, HS TROP, BMP, MG, PTT, CK, BNP, PT, CBC #### [facility] [address] [place] [address] RBC (Bld) [#/Vol] 2.93 10*6/uL Low 3.60-5.00 [facility] Comment on above: Performed By: #### C AION #### [facility] , #### HEPATIC, HS TROP, BMP, MG, PTT, CK, BNP, PT, CBC #### [facility] [address] [place] [address] WBC (Bld) [#/Vol] 6.2 10*3/uL Normal 3.8-11.6 [facility] Comment on above: Performed By: #### C AION #### [facility] , #### HEPATIC, HS TROP, BMP, MG, PTT, CK, BNP, PT, CBC #### [facility] [address] [place] [address] Creatine Kinaseon 11-19-2022 CK [Catalytic activity/Vol] 35 U/L Normal 30-223 [facility] Comment on above: Performed By: #### G LULS #### Point of Care testing , Creatine kinase [Enzymatic a ctivity/volume] in Serum or PlasmaOrdered By: Gina Poole on 11-19-2022 CK [Catalytic activity/Vol] 31 U/L Normal 30-223 [facility] Comment on above: Order Comment: ultra sound come back in 10 mins Performed By: #### C AION #### [facility] , #### HEPATIC, HS TROP, BMP, MG, PTT, CK, BNP, PT, CBC #### [facility] [address] [place] [id number] [facility] echo transthoracicon [facility] echo transthoracic [facility] [address] [place] [address] [place] [address] Echocardiogram Signed Patient: Kate Hagen MR#: [id number] 52 : 1950 Acct:[id number] Age/Sex: 71 / F ADM Date: 11/18/22 Loc: Room: [address] [place] [address] Type: ADM IN Attending Dr: Gina Poole DO Ordering Provider: Gina Poole DO Date of Service: 11/18/22 [facility] echo transthoracic: Shortness of Breath/Dyspnea Copies to: Colin Levy MD, [facility] Gina Poole DO Height: 60 in Weight: [...] cm2 (more content not included)... Normal [facility] Ferritin [Mass/volume] in Se rum or PlasmaOrdered By: Gina Poole on 11-19-2022 Ferritin [Mass/Vol] 388.8 ng/mL High 11.0-306.8 [facility] Comment on above: Result Comment: PERF ORMED BY: [place] [address] PATHOLOGIST [employer] OPERATOR HELPER KOBE VENCES M.D. Performed By: #### C AION #### [facility] , #### HEPATIC, HS TROP, BMP, MG, PTT, CK, BNP, PT, CBC #### [address] Glucose Poct Glucometerson 0 11-19-2022 Glucose [Mass/Vol] 140 mg/dL Normal [facility] Comment on above: Result Comment: [place] Glucose Reference Range is dependent on time and content of last meal. Glucose of more than 200 mg/dL in a nonstressed, ambulatory subject supports the diagnosis of Diabetes Mellitus. PERFORMED BY: [place] [phone] PATHOLOGIST [employer] OPERATOR HELPER KOBE VENCES M.D. Performed By: #### G LULS #### Point of Care testing , Commemt1 Glu2: Cleaned Meter Normal [facility] Comment on above: Result Comment: PERF ORMED BY: [place] [address] PATHOLOGIST [employer] OPERATOR HELPER KOBE VENCES M.D. Performed By: #### G LULS #### Point of Care testing , Glucose [Mass/Vol] 168 mg/dL Normal [facility] Comment on above: Result Comment: [place] om Glucose Reference Range is dependent on time and content of last meal. Glucose of more than 200 mg/dL in a nonstressed, ambulatory subject supports the diagnosis of Diabetes Mellitus. Performed By: #### G LULS #### Point of Care testing , Iron [Mass/volume] in Serum or PlasmaOrdered By: Gina Poole on 11-19-2022 Iron [Mass/Vol] 28 ug/dL Low 50-212 [facility] Comment on above: Performed By: #### C AION #### [facility] , #### HEPATIC, HS TROP, BMP, MG, PTT, CK, BNP, PT, CBC #### [facility] [address] Iron and TIBC Profileon 11-01 0-202 % Iron Saturation 11.8 % Low 20-50 [facility] Comment on above: Performed By: #### C AION #### [facility] , #### HEPATIC, HS TROP, BMP, MG, PTT, CK, BNP, PT, CBC #### [facility] [address] [place] [address] Total Iron Binding Capacity 238 ug/dL Low 255-450 [facility] Comment on above: Performed By: #### C AION #### [facility] , #### HEPATIC, HS TROP, BMP, MG, PTT, CK, BNP, PT, CBC #### [facility] [address] [place] [address] Iron binding capacity [Mass/ volume] in Serum or PlasmaOrdered By: Gina Poole on 11-19-2022 Iron binding capacity [Mass/Vol] 238 ug/dL 255-450 [facility] Iron saturation [Mass Fracti on] in Serum or PlasmaOrdered By: Gina Poole on 11-19-2022 Iron saturation [Mass fraction] 11.8 % 20-50 [facility] Magnesium [Mass/volume] in S arti or PlasmaOrdered By: Gina Poole on 11-19-2022 Magnesium [Mass/Vol] 1.5 mg/dL Low 1.9-2.7 [facility] Comment on above: Performed By: #### C AION #### [facility] , #### HEPATIC, HS TROP, BMP, MG, PTT, CK, BNP, PT, CBC #### [facility] [address] No Panel InformationOrdered By: Gina Poole on 11-19-2022 Bedside Glucose Comment Glu2: cleaned meter [facility] Transferrin [Mass/volume] in Serum or PlasmaOrdered By: Gina Poole on 11-19-2022 Transferrin [Mass/Vol] 170 mg/dL Low 203-362 [facility] Comment on above: Performed By: #### C AION #### [facility] , #### HEPATIC, HS TROP, BMP, MG, PTT, CK, BNP, PT, CBC #### [facility] [address] Troponin I High Sensitivityo n 11-19-2022 Troponin I High Sensitivity 19.6 pg/mL High 0.0-15.0 [facility] Comment on above: Order Comment: ultra sound come back in 10 mins Result Comment: PERF ORMED BY: [place] [address] PATHOLOGIST [employer] HELPER KOBE VENCES M.D. Performed By: #### C AION #### [facility] , #### HEPATIC, HS TROP, BMP, MG, PTT, CK, BNP, PT, CBC #### [facility] [address] Troponin I High Sensitivity 17.3 pg/mL High 0.0-15.0 [facility] Comment on above: Result Comment: PERF ORMED BY: [place] [address] PATHOLOGIST [employer] OPER[employer] HELPER KOBE VENCES M.D. Performed By: #### G LULS #### Point of Care testing , Troponin I.cardiac [Mass/vol ume] in Serum or Plasma by Detection limit <= 0.01 ng/Ordered By: Gina Poole on 11-19-2022 Troponin I.cardiac DL <= 0.01 ng/mL [Mass/Vol] 19.6 pg/mL 0.0-15.0 [facility] Activated partial thrombopla stin time (aPTT) in platelet poor plasma by coagulation aOrdered By: Venkatesh Trammell on 11-18-2022 aPTT Coag (PPP) [Time] 35.1 s 25.1-36.5 [facility] Alanine aminotransferase [En zymatic activity/volume] in Serum or PlasmaOrdered By: Venkatesh Trammell on 11-18-2022 ALT [Catalytic activity/Vol] 10 U/L 7-52 [facility] Albumin [Mass/volume] in Ser um or Plasma by Bromocresol green (BCG) dye binding methoOrdered By: Venkatesh Trammell on 11-18-2022 Albumin BCG dye [Mass/Vol] 3.4 g/dL 3.5-5.7 [facility] Alkaline phosphatase [Enzyma tic activity/volume] in Serum or PlasmaOrdered By: Venkatesh Trammell on 11-18-2022 ALP [Catalytic activity/Vol] 54 U/L 34-104 [facility] Aspartate aminotransferase [ Enzymatic activity/volume] in Serum or PlasmaOrdered By: Venkatesh Trammell on 11-18-2022 AST [Catalytic activity/Vol] 15 U/L 13-39 [facility] Basophils Auto (Bld) [#/Vol] Ordered By: Venkatesh Trammell on 11-18-2022 Basophils (Bld) [#/Vol] 0.0 10*3/uL 0.0-0.2 [facility] Basophils/100 WBC Auto (Bld) Ordered By: Venkatesh Trammell on 11-18-2022 Basophils/100 WBC (Bld) 0.7 % . [facility] Bilirubin.direct [Mass/volum e] in Serum or PlasmaOrdered By: Venkatesh Trammell on 11-18-2022 Bilirubin.direct [Mass/Vol] 0.10 mg/dL 0.03-0.18 [facility] Bilirubin.total [Mass/volume ] in Serum or PlasmaOrdered By: Venkatesh Trammell on 11-18-2022 Bilirubin [Mass/Vol] 0.4 mg/dL 0.3-1.0 [facility] Calcium [Mass/volume] in Ser um or PlasmaOrdered By: Venkatesh Trammell on 11-18-2022 Calcium [Mass/Vol] 8.1 mg/dL 8.6-10.3 [facility] Carbon dioxide, total [Moles /volume] in Serum or PlasmaOrdered By: Venkatesh Trammell on 11-18-2022 CO2 [Moles/Vol] 36.2 mmol/L 21.0-31.0 [facility] Chloride [Moles/volume] in S arti or PlasmaOrdered By: Venkatesh Trammell on 11-18-2022 Chloride [Moles/Vol] 101 mmol/L 98-107 [facility] Creatine kinase [Enzymatic a ctivity/volume] in Serum or PlasmaOrdered By: Gina Poole on 11-18-2022 CK [Catalytic activity/Vol] 44 U/L 30-223 [facility] Creatinine [Mass/volume] in Serum or PlasmaOrdered By: Venkatesh Trammell on 11-18-2022 Creatinine [Mass/Vol] 1.78 mg/dL 0.60-1.20 [facility] Eosinophils Auto (Bld) [#/Vo l]Ordered By: Venkatesh Trammell on 11-18-2022 Eosinophils (Bld) [#/Vol] 0.1 10*3/uL 0.0-0.45 [facility] Eosinophils/100 WBC Auto (Bl d)Ordered By: Venkatesh Trammell on 11-18-2022 Eosinophils/100 WBC (Bld) 1.7 % . [facility] Erythrocyte distribution wid th Auto (RBC) [Ratio]Ordered By: Venkatesh Trammell on 11-18-2022 Erythrocyte distribution width (RBC) [Ratio] 15.2 % 11.9-15.3 [facility] Globulin Calc (S) [Mass/Vol] Ordered By: Venkatesh Trammell on 11-18-2022 Globulin (S) [Mass/Vol] 3.2 g/dL [facility] Glucose [Mass/volume] in Ser um or PlasmaOrdered By: Venkatesh Trammell on 11-18-2022 Glucose [Mass/Vol] 101 mg/dL 70-100 [facility] Comment on above: ADA recommended refe rence rangeRandom Glucose Reference Range is dependent on time and content of last meal. Glucose of more than 200 mg/dL in a nonstressed, ambulatory subject supports the diagnosis of Diabetes Mellitus. Hematocrit Auto (Bld) [Volum e fraction]Ordered By: Venkatesh Trammell on 11-18-2022 Hematocrit (Bld) [Volume fraction] 26.8 % 34.0-46.4 [facility] Hemoglobin [Mass/volume] in BloodOrdered By: Venkatesh Trammell on 11-18-2022 Hemoglobin (Bld) [Mass/Vol] 8.7 g/dL 11.8-15.4 [facility] Laboratory - CoagulationOrde red By: Venkatesh Trammell on 11-18-2022 PT Coag (PPP) [Time] 17.6 s 9.0-12.9 [facility] Leukocytes [#/volume] correc loan for nucleated erythrocytes in Blood by Automated counOrdered By: Venkatesh Trammell on 11-18-2022 WBC corrected for nucl RBC Auto (Bld) [#/Vol] 6.8 10*3/uL 3.8-11.6 [facility] Lymphocytes Auto (Bld) [#/Vo l]Ordered By: Venkatesh Trammell on 11-18-2022 Lymphocytes (Bld) [#/Vol] 1.5 10*3/uL 1.00-4.8 [facility] Lymphocytes/100 WBC Auto (Bl d)Ordered By: Venkatesh Trammell on 11-18-2022 Lymphocytes/100 WBC (Bld) 22.5 % . [facility] MCH Auto (RBC) [Entitic mass ]Ordered By: Venkatesh Trammell on 11-18-2022 MCH (RBC) [Entitic mass] 29.1 pg 24.7-34.3 [facility] MCHC Auto (RBC) [Mass/Vol]Or dered By: Venkatesh Trammell on 11-18-2022 MCHC (RBC) [Mass/Vol] 32.4 g/dL 32.0-35.0 [facility] MCV Auto (RBC) [Entitic vol] Ordered By: Venkatesh Trammell on 11-18-2022 MCV (RBC) [Entitic vol] 89.8 fL 80-100 [facility] Monocyte distribution width [Entitic volume] in Blood by AutomatedOrdered By: Venkatesh Trammell on 11-18-2022 Monocyte distribution width Auto (Bld) [Entitic vol] 16.05 % 0.00-20.00 [facility] Monocytes Auto (Bld) [#/Vol] Ordered By: Venkatesh Trammell on 11-18-2022 Monocytes (Bld) [#/Vol] 0.4 10*3/uL 0.0-0.8 [facility] Monocytes/100 WBC Auto (Bld) Ordered By: Venkatesh Trammell on 11-18-2022 Monocytes/100 WBC (Bld) 5.7 % . [facility] Natriuretic peptide B [Mass/ Vol]Ordered By: Venkatesh Trammell on 11-18-2022 Natriuretic peptide B (Bld) [Mass/Vol] 2080.0 pg/mL 5-100 [facility] Neutrophils Auto (Bld) [#/Vo l]Ordered By: Venkatesh Trammell on 11-18-2022 Neutrophils (Bld) [#/Vol] 4.7 10*3/uL 1.8-7.7 [facility] Neutrophils/100 WBC Auto (Bl d)Ordered By: Venkatesh Trammell on 11-18-2022 Neutrophils/100 WBC (Bld) 69.4 % . [facility] No Panel InformationOrdered By: Venkatesh Trammell on 11-18-2022 Estimated GFR (CKD-EPI) 29.779 mL/Min [facility] Creatinine Clearance (Chem 25.51 [facility] Nucleated erythrocytes [Pres ence] in Blood by Automated countOrdered By: Venkatesh Trammell on 11-18-2022 Nucleated RBC Auto Ql (Bld) 0.0 /100{WBC} 0-0.5 [facility] Platelet mean volume Auto (B ld) [Entitic vol]Ordered By: Venkatesh Trammell on 11-18-2022 Platelet mean volume (Bld) [Entitic vol] 8.2 fL 6.3-10.7 [facility] Platelet poor plasma interna tional normalized ratio (INR) by coagulation assay (relatOrdered By: Venkatesh Trammell on 11-18-2022 INR Coag (PPP) [Relative time] 1.5 {INR} [facility] Comment on above: INR Therapeutic Rang [...] 11-18-2022 Platelets (Bld) [#/Vol] 169 10*3/uL 150-450 [facility] Potassium [Moles/volume] in Serum or PlasmaOrdered By: Venkatesh Trammell on 11-18-2022 Potassium [Moles/Vol] 5.2 mmol/L 3.5-5.1 [facility] Protein [Mass/volume] in Ser um or PlasmaOrdered By: Venkatesh Trammell on 11-18-2022 Protein [Mass/Vol] 6.6 g/dL 6.4-8.9 [facility] RBC Auto (Bld) [#/Vol]Ordere d By: Venkatesh Trammell on 11-18-2022 RBC (Bld) [#/Vol] 2.98 10*6/uL 3.60-5.00 [facility] Serum or plasma albumin/glob ulin mass ratioOrdered By: Venkatesh Trammell on 11-18-2022 Albumin/Globulin [Mass ratio] 1.1 {ratio} [facility] Serum or plasma anion gap de terminationOrdered By: Venkatesh Trammell on 11-18-2022 Anion gap [Moles/Vol] 10.0 mmol/L 6.0-15.0 [facility] Serum or plasma non-glucuron idated bilirubin measurement (mass/volume)Ordered By: Venkatesh Trammell on 11-18-2022 Bilirubin.indirect [Mass/Vol] 0.3 mg/dL [facility] Sodium [Moles/volume] in Ser um or PlasmaOrdered By: Venkatesh Trammell on 11-18-2022 Sodium [Moles/Vol] 142 mmol/L 136-145 [facility] Troponin I.cardiac [Mass/vol ume] in Serum or Plasma by Detection limit <= 0.01 ng/Ordered By: Gina Poole on 11-18-2022 Troponin I.cardiac DL <= 0.01 ng/mL [Mass/Vol] 18.4 pg/mL 0.0-15.0 [facility] Urea nitrogen [Mass/volume] in Serum or PlasmaOrdered By: Venkatesh Davisonzi on 11-18-2022 Urea nitrogen [Mass/Vol] 29 mg/dL 7-25 [facility] WBC Auto (Bld) [#/Vol]Ordere d By: Venkatesh Davisonzi on 11-18-2022 WBC (Bld) [#/Vol] 6.8 10*3/uL 3.8-11.6 [facility] 36on 10-30-2022 36 Milena from [facility] called to make you aware that patient has gained 5lbs since the Bum[employer] increase on 10/27. She said her lungs are clear and diminished. She is not coughing and she is not edematous. Did you want to make any other changes? Please advise. Thanks. [facility] Telephoneon 10-30-2022 Telephone [id number] Maria G Hagen 1950 F Date Provider Department Center 10/30/2022 PHILL HALEY Family History Problem Relation Age of Onset Stroke Mother Hypertension Mother Heart attack Father Hypertension Sister Heart attack Sister Heart attack Brother Family Status - Relation Status Age at Mother Father Sister Brother [facility] Office Visiton 10-27-2022 Follow-up visit [id number] Maria G Hagen 1950 Provider Department Center 10/27/2022 PHILL HALEY Family History Problem Relation Age of Onset Stroke Mother Hypertension Mother Heart attack Father Hypertension Sister Heart attack Sister Heart attack Brother Family Status - Relation Status Age at Mother Father Sister Brother Level of Service:99204 NE OFFICE/OUTPATIENT ESTABLISHED MOD MDM 30-39 MIN [facility] Office Visiton 09-22-2022 Follow-up visit [id number] Maria G Hagen 1950 Date Provider Department Center 09/22/2022 [facility] Family History Problem Relation Age of Onset Stroke Mother Hypertension Mother Heart attack Father Hypertension Sister Heart attack Sister Heart attack Brother Family Status - Relation Status Age at Mother Father Sister Brother Level of Service:11351 NE OFFICE/OUTPATIENT ESTABLISHED LOW MDM 20-29 MIN Reason for Visit and Comments: Follow-up [200697] - Event monitor follow up Normal [facility] BNPon 09-08-2022 Natriuretic peptide B (Bld) [Mass/Vol] 71706.0 pg/mL Critically high <=900.0 [facility] Comment on above: Performed By: #### C MP, BNP ####[facility] [address] [place] [address]Dr. Cherjun Hernandez CBC AUTO DIFFon 09-08-2022 BASO # 0.0 103/ul Normal 0.0-0.1 [facility] Comment on above: Performed By: #### C BC ####[facility] [address] [place] [address]Dr. Ivette Hernandez Basophils/100 WBC (Bld) 0.0 % Critically low 0.2-2.0 [facility] Comment on above: Performed By: #### C BC ####[facility] [address] [place], [place] [address]Dr. Ivette Hernandez EO # 0.0 103/ul Normal 0.0-0.7 [facility] Comment on above: Performed By: #### C BC ####[facility] [address] [place], [place] [address]Dr. Ivette Hernandez Eosinophils/100 WBC (Bld) 0.0 % Critically low 0.9-7.0 [facility] Comment on above: Performed By: #### C BC ####[facility] [address] [place], [place] [address]Dr. Ivette Hernandez Erythrocyte distribution width (RBC) [Ratio] 14.0 % Normal 11.0-15.0 [facility] Comment on above: Performed By: #### C BC ####[facility] V[address] [place], [place] [address]Dr. Ivette Hernandez Hematocrit (Bld) [Volume fraction] 26.0 % Critically low 36.0-48.0 [facility] Comment on above: Performed By: #### C BC ####[facility] [address] [place] [id number]. Ivette Hernandez Hemoglobin (Bld) [Mass/Vol] 8.2 g/dL Critically low 12.0-16.0 [facility] Comment on above: Performed By: #### C BC ####[facility] [address] [place] [id number]. Ivette Hernandez IG # 0.06 10e3/ul Critically high 0.00-0.03 [facility] Comment on above: Performed By: #### C BC ####[facility] [address] [place] [id number]. Ivette Hernandez IG % 0.7 % Critically high 0.0-0.5 [facility] Comment on above: Performed By: #### C BC ####[facility] [address] [place], [place] [address]Dr. Ivette Hernandez LYMPH # 0.7 103/ul Critically low 1.2-3.8 [facility] Comment on above: Performed By: #### C BC ####[facility] [address] [place] [address]Dr. Ivette Hernandez Lymphocytes/100 WBC (Bld) 8.2 % Critically low 20.5-60.0 [facility] Comment on above: Performed By: #### C BC ####[facility] [address] [place] [address]Dr. Ivette Hernandez MANUAL DIFF REQ NO Normal [facility] Comment on above: Performed By: #### C BC ####[facility] [address] [place], [place] [address]Dr. Ivette Hernandez MCH (RBC) [Entitic mass] 29.4 pg Normal 26.7-34.0 [facility] Comment on above: Performed By: #### C BC ####[facility] [address] [place], [place] [address]Dr. Ivette Hernandez MCHC (RBC) [Mass/Vol] 31.5 g/dL Normal 29.9-35.2 [facility] Comment on above: Performed By: #### C BC ####[facility] [address] [place] [id number]. Ivette Hernandez MCV (RBC) [Entitic vol] 93.2 fL Normal 81.0-99.0 [facility] Comment on above: Performed By: #### C BC ####[facility] [address] [place] [id number]. Ivette Hernandez MONO # 0.3 103/ul Normal 0.3-0.8 [facility] Comment on above: Performed By: #### C BC ####[facility] [address] [place], [place] [address]Dr. Ivette Hernandez Monocytes/100 WBC (Bld) 3.5 % Normal 1.7-12.0 [facility] Comment on above: Performed By: #### C BC ####[facility] [address] [place], [place] [address]Dr. Ivette Hernandez NEUT # 7.6 103/ul Critically high 1.4-6.5 [facility] Comment on above: Performed By: #### C BC ####[facility] [address] [place], [place] [address]Dr. Ivette Hernandez Neutrophils/100 WBC (Bld) 87.6 % Critically high 43.0-75.0 [facility] Comment on above: Performed By: #### C BC ####[facility] [address] [place], [place] [address]Dr. Ivette Hernandez Platelet mean volume (Bld) [Entitic vol] 9.6 fL Normal 9.5-13.5 [facility] Comment on above: Performed By: #### C BC ####[facility] [address] [place], [place] [address]Dr. Ivette Hernandez PLT 224 103/ul Normal 150-450 [facility] Comment on above: Performed By: #### C BC ####[facility] [address] [place], [place] [address]Dr. Ivette Hernandez RBC 2.79 106/ul Critically low 4.20-5.40 [facility] Comment on above: Performed By: #### C BC ####[facility] [address] [place] [address]Dr. Ivette Hernandez WBC 8.7 103/ul Normal 4.0-11.0 [facility] Comment on above: Performed By: #### C BC ####[facility] [address] [place] [address]Dr. Ivette Hernandez PROF 14(COMP METB)on 023 Albumin [Mass/Vol] 2.5 g/dL Critically low 3.4-5.0 [facility] Comment on above: Performed By: #### C MP, BNP ####[facility] [address] [place] [address]Dr. Ivette Hernandez Albumin/Globulin [Mass ratio] 0.6 {ratio} Normal [facility] Comment on above: Performed By: #### C MP, BNP ####[facility] [address] [place], [place] [address]Dr. Ivette Hernandez ALP [Catalytic activity/Vol] 66 U/L Normal 46-116 [facility] Comment on above: Performed By: #### C MP, BNP ####[facility] [address] [place] [address]Dr. Ivette Hernandez ALT [Catalytic activity/Vol] 20 U/L Normal 14-59 [facility] Comment on above: Performed By: #### C MP, BNP ####[facility] [address] [place] [address]Dr. Ivette Hernandez Anion gap [Moles/Vol] 9.1 mmol/L Normal [facility] Comment on above: Performed By: #### C MP, BNP ####[facility] [address] [place] [address]Dr. Ivette Hernandez AST [Catalytic activity/Vol] 11 U/L Critically low 15-37 [facility] Comment on above: Performed By: #### C MP, BNP ####[facility] [address] [place] [address]Dr. Ivette Hernandez Bilirubin [Mass/Vol] 0.4 mg/dL Normal 0.2-1.0 [facility] Comment on above: Performed By: #### C MP, BNP ####[facility] [address] [place] [address]Dr. Ivette Hernandez Calcium [Mass/Vol] 8.5 mg/dL Normal 8.5-10.1 [facility] Comment on above: Performed By: #### C MP, BNP ####[facility] [address] [place], [place] [address]Dr. Ivette Hernandez Chloride [Moles/Vol] 103 mmol/L Normal 98-107 [facility] Comment on above: Performed By: #### C MP, BNP ####[facility] [address]bs[address] [place], [place] [address]Dr. Ivette Hernandez CO2 [Moles/Vol] 37.1 mmol/L Critically high 21.0-32.0 [facility] Comment on above: Performed By: #### C MP, BNP ####[facility] [address] [place], [place] [address]Dr. Ivette Hernandez Creatinine [Mass/Vol] 1.87 mg/dL Critically high 0.55-1.02 [facility] Comment on above: Performed By: #### C MP, BNP ####[facility] [address] [place], [place] [address]Dr. Ivette Hernandez EGFR-AF ANGUILLAN 32 mL/min/1.73m2 Critically low >=60 [facility] Comment on above: Performed By: #### C MP, BNP ####[facility] [address] [place], [place] [address]Dr. Ivette Hernandez EGFR-NON AF ANGUILLAN 26 mL/min/1.73m2 Critically low >=60 [facility] Comment on above: Performed By: #### C MP, BNP ####[facility] [address] [place], [place] [address]Dr. Ivette Hernandez Globulin (S) [Mass/Vol] 4.2 g/dL Normal [facility] Comment on above: Performed By: #### C MP, BNP ####[facility] [address] [place], [place] [address]Dr. Ivette Hernandez Glucose [Mass/Vol] 196 mg/dL Critically high 74-106 [facility] Comment on above: Performed By: #### C MP, BNP ####[facility] S[address] [place], [place] [address]Dr. Ivette Hernandez Potassium [Moles/Vol] 4.2 mmol/L Normal 3.5-5.1 [facility] Comment on above: Performed By: #### C MP, BNP ####[facility] [address] [place], [place] [address]Dr. Ivette Hernandez Protein [Mass/Vol] 6.7 g/dL Normal 6.4-8.2 [facility] Comment on above: Performed By: #### C MP, BNP ####[facility] [address] [place], [place] [address]Dr. Ivette Hernandez Sodium [Moles/Vol] 145 mmol/L Normal 136-145 [facility] Comment on above: Performed By: #### C MP, BNP ####[facility] [address] [place], [place] [address]Dr. Ivette David Urea nitrogen [Mass/Vol] 45.0 mg/dL Critically high 7.0-18.0 [facility] Comment on above: Performed By: #### C MP, BNP ####[facility] [address] [place], [place] [address]Dr. Ivette Hernandez Urea nitrogen/Creatinine [Mass ratio] 24.1 mg/mg Normal [facility] Comment on above: Performed By: #### C MP, BNP ####[facility] [address] [place], [place] [address]Dr. Ivette Hernandez BNPon 09-07-2022 Natriuretic peptide B (Bld) [Mass/Vol] 95915.0 pg/mL Critically high <=900.0 [facility] Comment on above: Performed By: #### C MP, BNP ####[facility] [address] [place], [place] [address]Dr. Cherjun Hernandez CBC AUTO DIFFon 09-07-2022 BASO # 0.0 103/ul Normal 0.0-0.1 [facility] Comment on above: Performed By: #### C BC ####[facility] [address] [place] [id number]. Ivette Hernandez Basophils/100 WBC (Bld) 0.1 % Critically low 0.2-2.0 [facility] Comment on above: Performed By: #### C BC ####[facility] [address] [place] [id number]. Ivette Hernandez EO # 0.0 103/ul Normal 0.0-0.7 [facility] Comment on above: Performed By: #### C BC ####[facility] [address] [place], [place] [address]Dr. Ivette Hernandez Eosinophils/100 WBC (Bld) 0.0 % Critically low 0.9-7.0 [facility] Comment on above: Performed By: #### C BC ####[facility] [address] [place], [place] [address]Dr. Ivette Hernandez Erythrocyte distribution width (RBC) [Ratio] 13.9 % Normal 11.0-15.0 [facility] Comment on above: Performed By: #### C BC ####[facility] Ixq[address] [place], [place] [address]Dr. Ivette Hernandez Hematocrit (Bld) [Volume fraction] 26.6 % Critically low 36.0-48.0 [facility] Comment on above: Performed By: #### C BC ####[facility] Wuvkv[address]ty[address] [place], [place] [id number]. Ivette Hernandez Hemoglobin (Bld) [Mass/Vol] 8.3 g/dL Critically low 12.0-16.0 [facility] Comment on above: Performed By: #### C BC ####[facility] Ccnmhmdif[address] [place], [place] [address]Dr. Ivette Hernandez IG # 0.07 10e3/ul Critically high 0.00-0.03 [facility] Comment on above: Performed By: #### C BC ####[facility] Jjhulpzexy[address] [place], [place] [address]Dr. Ivette Hernandez IG % 0.8 % Critically high 0.0-0.5 [facility] Comment on above: Performed By: #### C BC ####[facility] [address]rkfgtiban14[address] [place] [id number]. Ivette Hernandez LYMPH # 0.6 103/ul Critically low 1.2-3.8 [facility] Comment on above: Performed By: #### C BC ####[facility] Jqcuuulpro8042 [place] [id number]. Ivette Hernandez Lymphocytes/100 WBC (Bld) 7.2 % Critically low 20.5-60.0 [facility] Comment on above: Performed By: #### C BC ####[facility] [address]oratktaaq[address] [place] [id number]. Ivette Hernandez MANUAL DIFF REQ NO Normal [facility] Comment on above: Performed By: #### C BC ####[facility] Mdioledwfl4774 [place] [id number]. Ivette Hernandez MCH (RBC) [Entitic mass] 29.5 pg Normal 26.7-34.0 [facility] Comment on above: Performed By: #### C BC ####[facility] Dorleizryd[address]00 [place] [id number]. Ivette Hernandez MCHC (RBC) [Mass/Vol] 31.2 g/dL Normal 29.9-35.2 [facility] Comment on above: Performed By: #### C BC ####[facility] Cknoygbslp2167 [place] [id number]. Ivette Hernandez MCV (RBC) [Entitic vol] 94.7 fL Normal 81.0-99.0 [facility] Comment on above: Performed By: #### C BC ####[facility] Msklfpawpq9298 [place] [id number]. Ivette Hernandez MONO # 0.6 103/ul Normal 0.3-0.8 [facility] Comment on above: Performed By: #### C BC ####[facility] Hmyitsuhtv3701 [place] [id number]. Ivette Hernandez Monocytes/100 WBC (Bld) 6.8 % Normal 1.7-12.0 [facility] Comment on above: Performed By: #### C BC ####[facility] Bjzwzrtrbh1012 [place] [id number]. Ivette Hernandez NEUT # 7.4 103/ul Critically high 1.4-6.5 [facility] Comment on above: Performed By: #### C BC ####[facility] Mupslzokxm2963 [place] [id number]. Ivette Hernandez Neutrophils/100 WBC (Bld) 85.1 % Critically high 43.0-75.0 [facility] Comment on above: Performed By: #### C BC ####[facility] Jjcrpltnbm0979 [place] [id number]. Ivette Hernandez Platelet mean volume (Bld) [Entitic vol] 9.5 fL Normal 9.5-13.5 [facility] Comment on above: Performed By: #### C BC ####[facility] Tltlfvqjaq43[address] [place] [address]Dr. Ivette Hernandez PLT 227 103/ul Normal 150-450 [facility] Comment on above: Performed By: #### C BC ####[facility] Tnqafqjtnm8513 [place] [id number]. Ivette Hernandez RBC 2.81 106/ul Critically low 4.20-5.40 [facility] Comment on above: Performed By: #### C BC ####[facility] Pseovrxoqw7394 [place] [id number]. Ivette Hernandez WBC 8.7 103/ul Normal 4.0-11.0 [facility] Comment on above: Performed By: #### C BC ####[facility] Mqkntmvjln5698 [place] [id number]. Ivette Hernandez BASO # 0.0 103/ul Normal 0.0-0.1 [facility] Comment on above: Performed By: #### C BC ####[facility] Uzajaxxvct9205 [place] [id number]. Ivette Hernandez Basophils/100 WBC (Bld) 0.0 % Critically low 0.2-2.0 [facility] Comment on above: Performed By: #### C BC ####[facility] Tcxewwlvvg5263 [place] [id number]. Ivette Hernandez EO # 0.0 103/ul Normal 0.0-0.7 [facility] Comment on above: Performed By: #### C BC ####[facility] Trtiomspve2325 [place] [id number]. Ivette Hernandez Eosinophils/100 WBC (Bld) 0.0 % Critically low 0.9-7.0 [facility] Comment on above: Performed By: #### C BC ####[facility] Pygcjxm[address] [place], [place] [address]Dr. Ivette Hernandez Erythrocyte distribution width (RBC) [Ratio] 13.1 % Normal 11.0-15.0 [facility] Comment on above: Performed By: #### C BC ####[facility] Ppprifejgp[address] [place], [place] [address]Dr. Ivette Hernandez Hematocrit (Bld) [Volume fraction] 25.9 % Critically low 36.0-48.0 [facility] Comment on above: Performed By: #### C BC ####[facility] Ewxvsrmpfi[address] [place], [place] [address]Dr. Ivette Hernandez Hemoglobin (Bld) [Mass/Vol] 8.0 g/dL Critically low 12.0-16.0 [facility] Comment on above: Performed By: #### C BC ####[facility] Zqhvemkofu[address] [place], [place] [address]Dr. Ivette Hernandez IG # 0.06 10e3/ul Critically high 0.00-0.03 [facility] Comment on above: Performed By: #### C BC ####[facility] Xxssqxhv[address] [place], [place] [address]Dr. Ivette Hernandez IG % 1.1 % Critically high 0.0-0.5 [facility] Comment on above: Performed By: #### C BC ####[facility] Wtnrqxyp[address] [place], [place] [address]Dr. Ivette Hernandez LYMPH # 0.8 103/ul Critically low 1.2-3.8 [facility] Comment on above: Performed By: #### C BC ####[facility] Oxfspvyilq7656 [place] [id number]. Ivette Hernandez Lymphocytes/100 WBC (Bld) 14.8 % Critically low 20.5-60.0 [facility] Comment on above: Performed By: #### C BC ####[facility] Bqxieapitv5002 [place] [id number]. Ivette Hernandez MANUAL DIFF REQ NO Normal [facility] Comment on above: Performed By: #### C BC ####[facility] Fkrxxpmibx8877 [place] [id number]. Ivette Hernandez MCH (RBC) [Entitic mass] 29.7 pg Normal 26.7-34.0 [facility] Comment on above: Performed By: #### C BC ####[facility] Byhrfgxjnm5807 [place] [address]Dr. Ivette Hernandez MCHC (RBC) [Mass/Vol] 30.9 g/dL Normal 29.9-35.2 [facility] Comment on above: Performed By: #### C BC ####[facility] Ztzwgkivqd6949 [place] [id number]. Ivette Hernandez MCV (RBC) [Entitic vol] 96.3 fL Normal 81.0-99.0 [facility] Comment on above: Performed By: #### C BC ####[facility] Cdfgudlefq0586 [place] [address]Dr. Ivette Hernandez MONO # 0.1 103/ul Critically low 0.3-0.8 [facility] Comment on above: Performed By: #### C BC ####[facility] Lxsqossqko5029 [place] [id number]. Ivette Hernandez Monocytes/100 WBC (Bld) 2.0 % Normal 1.7-12.0 [facility] Comment on above: Performed By: #### C BC ####[facility] Pwuizfxelf5334 [place] [address]DrJesse Hernandez NEUT # 4.5 103/ul Normal 1.4-6.5 [facility] Comment on above: Performed By: #### C BC ####[facility] Deglijnwob1058 [place] [id number]. Ivette Hernandez Neutrophils/100 WBC (Bld) 82.1 % Critically high 43.0-75.0 [facility] Comment on above: Performed By: #### C BC ####[facility] Yhbahhpofb1085 [place] [id number]. Ivette Hernandez Platelet mean volume (Bld) [Entitic vol] 9.4 fL Critically low 9.5-13.5 [facility] Comment on above: Performed By: #### C BC ####[facility] Jggsrxltub1301 [place] [id number]. Ivette Hernandez PLT 224 103/ul Normal 150-450 [facility] Comment on above: Performed By: #### C BC ####[facility] Qhjbffifzu9566 [place] [id number]. Ivette Hernandez RBC 2.69 106/ul Critically low 4.20-5.40 [facility] Comment on above: Performed By: #### C BC ####[facility] Ggityuucpx2185 [place] [id number]. Ivette Hernandez WBC 5.5 103/ul Normal 4.0-11.0 [facility] Comment on above: Performed By: #### C BC ####[facility] Mzdtnbzmhz6347 [place] [id number]. Ivette Hernandez CULTURE SPUTUMon 09-07-2022 CULTURE SPUTUM Isolate 1 Carolee albicans Moderate growth of Normal [facility] Comment on above: Performed By: #### S PUTCX ####[facility] Jobfeoxfzg1353 [place] [id number] Hernandez ECHOCARDIO M/2D COMPLETEon 0 09-07-2022 ECHOCARDIO M/2D COMPLETE Normal [facility] PRBC LEUKOREDUCEDon 09-08-19 23 PRBC LEUKOREDUCED Normal [facility] Comment on above: Performed By: #### P RBC ####[facility] Bdyjfwnspp3202 [place] [address]DrJesse Hernandez PROF 14(COMP METB)on 023 Albumin [Mass/Vol] 2.4 g/dL Critically low 3.4-5.0 [facility] Comment on above: Performed By: #### C MP, BNP ####[facility] Wnkkujceee6974 [place] [address]Dr. Ivette Hernandez Albumin/Globulin [Mass ratio] 0.5 {ratio} Normal [facility] Comment on above: Performed By: #### C MP, BNP ####[facility] Cypnslscrf4359 [place] [address]Dr. Ivette Hernandez ALP [Catalytic activity/Vol] 75 U/L Normal 46-116 [facility] Comment on above: Performed By: #### C MP, BNP ####[facility] Ddttpqlrct8387 [place] [address]Dr. Ivette Hernandez ALT [Catalytic activity/Vol] 17 U/L Normal 14-59 [facility] Comment on above: Performed By: #### C MP, BNP ####[facility] Aozhztfmmf0276 [place] [address]Dr. Ivette Hernandez Anion gap [Moles/Vol] 11.3 mmol/L Normal [facility] Comment on above: Performed By: #### C MP, BNP ####[facility] Dbdosdtnrd4507 [place] [address]Dr. Ivette Hernandez AST [Catalytic activity/Vol] 15 U/L Normal 15-37 [facility] Comment on above: Performed By: #### C MP, BNP ####[facility] Minesodqqw3759 [place] [address]Dr. Ivette Hernandez Bilirubin [Mass/Vol] 0.3 mg/dL Normal 0.2-1.0 [facility] Comment on above: Performed By: #### C MP, BNP ####[facility] Iioeqnhqnt3782 [place] [address]Dr. Ivette Hernandez Calcium [Mass/Vol] 7.9 mg/dL Critically low 8.5-10.1 [facility] Comment on above: Performed By: #### C MP, BNP ####[facility] Rdezzusijr9771 [place] [address]Dr. Ivette Hernandez Chloride [Moles/Vol] 104 mmol/L Normal 98-107 [facility] Comment on above: Performed By: #### C MP, BNP ####[facility] Rkniyj[address] [place], [place] [address]Dr. Ivette Hernandez CO2 [Moles/Vol] 33.3 mmol/L Critically high 21.0-32.0 [facility] Comment on above: Performed By: #### C MP, BNP ####[facility] Ybpxpgrxfo[address] [place], [place] [address]Dr. Ivette Hernandez Creatinine [Mass/Vol] 1.68 mg/dL Critically high 0.55-1.02 [facility] Comment on above: Performed By: #### C MP, BNP ####[facility] Yrkivsxwzd[address] [place], [place] [address]Dr. Ivette David EGFR-AF ANGUILLAN 36 mL/min/1.73m2 Critically low >=60 [facility] Comment on above: Performed By: #### C MP, BNP ####[facility] Myrxzcwchw[address] [place], [place] [address]Dr. Ivette Hernandez EGFR-NON AF ANGUILLAN 30 mL/min/1.73m2 Critically low >=60 [facility] Comment on above: Performed By: #### C MP, BNP ####[facility] Ttfhqnygjf[address] [place], [place] [address]Dr. Ivette David Globulin (S) [Mass/Vol] 4.5 g/dL Normal [facility] Comment on above: Performed By: #### C MP, BNP ####[facility] Cacadeplyh8561 [place] [address]Dr. Ivette David Glucose [Mass/Vol] 203 mg/dL Critically high 74-106 [facility] Comment on above: Performed By: #### C MP, BNP ####[facility] Qopyrkpcaf[address] [place], [place] [address]Dr. Ivette Hernandez Potassium [Moles/Vol] 4.6 mmol/L Normal 3.5-5.1 [facility] Comment on above: Performed By: #### C MP, BNP ####[facility] Kpeozgssog[address] [place], [place] [address]Dr. Ivette Hernandez Protein [Mass/Vol] 6.9 g/dL Normal 6.4-8.2 [facility] Comment on above: Performed By: #### C MP, BNP ####[facility] Osmfxsfrgt[address] [place], [place] [address]Dr. Ivette Hernandez Sodium [Moles/Vol] 144 mmol/L Normal 136-145 [facility] Comment on above: Performed By: #### C MP, BNP ####[facility] Fdasurnvar84[address] [place], [place] [address]Dr. Ivette Hernandez Urea nitrogen [Mass/Vol] 33.0 mg/dL Critically high 7.0-18.0 [facility] Comment on above: Performed By: #### C MP, BNP ####[facility] Guaqemmgyw[address] [place], [place] [address]Dr. Ivette Hernandez Urea nitrogen/Creatinine [Mass ratio] 19.6 mg/mg Normal [facility] Comment on above: Performed By: #### C MP, BNP ####[facility] Xyekbvxdjp[address] [place], [place] [address]Dr. Ivette Hernandez SPUTUM GRAM STAINon 09-08-19 COMMENTS Normal [facility] Comment on above: Performed By: #### S PUTGS ####[facility] Jjtnvnbqck[address] [place], [place] [address]Dr. Ivette Hernandez DIPHTHEROIDS Normal [facility] Comment on above: Performed By: #### S PUTGS ####[facility] Khfvpzhmzp[address] [place], [place] [address]Dr. Ivette Hernandez EPITHELIALS <25 Normal [facility] Comment on above: Performed By: #### S PUTGS ####[facility] Txrdlnvnum[address] [place], [place] [address]Dr. Ivette Hernandez FUNGAL ELEMENTS FEW Normal [facility] Comment on above: Performed By: #### S PUTGS ####[facility] Gppjeqbvwb8[address] [place], [place] [address]Dr. Ivette Hernandez GRAM NEG BACILLI Normal [facility] Comment on above: Performed By: #### S PUTGS ####[facility] Ntimiisxzs6579 [place] [address]Dr. Ivette Hernandez GRAM NEG DIPPLOCOCCI Normal [facility] Comment on above: Performed By: #### S PUTGS ####[facility] Qddgjkikiu[address] [place], [place] [address]Dr. Ivette Hernandez GRAM POS BACILLI Normal [facility] Comment on above: Performed By: #### S PUTGS ####[facility] Tjmwfcbsts[address] [place], [place] [address]Dr. Ivette Hernandez GRAM POSITIVE COCCI Normal [facility] Comment on above: Performed By: #### S PUTGS ####[facility] Mvsewrwywf[address] [place], [place] [address]Dr. Ivette Hernandez WBC (Bld) [#/Vol] 10*3/uL Normal [facility] Comment on above: Performed By: #### S PUTGS ####[facility] Tqxjlkyekk[address] [place], [place] [address]Dr. Ivette Hernandez TYPE AND SCREENon 09-07-2022 TYPE AND SCREEN Negative Normal [facility] Comment on above: Performed By: #### T NS ####[facility] Aolejphuct[address] [place], [place] [address]Dr. Ivette David BNPon 09-06-2022 Natriuretic peptide B (Bld) [Mass/Vol] 79816.0 pg/mL Critically high <=900.0 [facility] Comment on above: Performed By: #### B SOLE CUTTER, HSTROPN, LIPA, CMP ####[facility] Wffzflhiwq[address] [place], [place] [address]Dr. Ivette Hernandez CARDIAC CANDACE ADMITon 023 CK [Catalytic activity/Vol] 73 U/L Normal 26-192 [facility] Comment on above: Performed By: #### C MADM, MG ####[facility] Swlvssynns[address] [place], [place] [address]Dr. Ivette Hernandez CK.MB [Mass/Vol] 1.68 ng/mL Normal <=3.60 [facility] Comment on above: Performed By: #### C MADM, MG ####[facility] Bzmzyqzdix5080 [place] [address]Dr. Ivette Hernandez HSTROP 14.7 pg/mL Normal 4.0-51.3 [facility] Comment on above: Result Comment: CUT- OFF POINTS HAVE BEEN ESTABLISHED BASED ON THE FOURTH UNIVERSAL DEFINITIONS OF MYOCARDIALINFARCTION. THE UPPER REFERENCE LIMIT (URL) OF TROPONIN, DEFINED THE 99TH PERCENTILE OFcTnI DISTRIBUTION IN A REFERENCE POPULATION, HAS BEEN CONFIRMED THE DECISION THRESHOLDFOR MD DIAGNOSIS. Performed By: #### C MADM, MG ####[facility] Xbsjppckhu4607 [place] [address]Dr. Ivette Hernandez CARMITA 151 ng/mL Critically high 9-82 [facility] Comment on above: Performed By: #### C BENJYM, MG ####[facility] Mrtvimfztt7290 [place] [address]Dr. Ivette Hernandez CBC AUTO DIFFon 09-06-2022 BASO # 0.0 103/ul Normal 0.0-0.1 [facility] Comment on above: Performed By: #### C BC ####[facility] Ssqcaljyqm0808 [place] [address]Dr. Ivette Hernandez Basophils/100 WBC (Bld) 0.4 % Normal 0.2-2.0 [facility] Comment on above: Performed By: #### C BC ####[facility] Ydhzudaqal9503 [place] [address]Dr. Ivette Hernandez EO # 0.1 103/ul Normal 0.0-0.7 [facility] Comment on above: Performed By: #### C BC ####[facility] Qcxcnljilo5238 [place] [address]Dr. Ivette Hernandez Eosinophils/100 WBC (Bld) 1.5 % Normal 0.9-7.0 [facility] Comment on above: Performed By: #### C BC ####[facility] Gmqlhjzper1549 [place] [address]Dr. Ivette Hernandez Erythrocyte distribution width (RBC) [Ratio] 13.1 % Normal 11.0-15.0 [facility] Comment on above: Performed By: #### C BC ####[facility] Vqhgtfmocf1247 [place] [address]DrJesse Hernandez Hematocrit (Bld) [Volume fraction] 26.8 % Critically low 36.0-48.0 [facility] Comment on above: Performed By: #### C BC ####[facility] Cubvnkfeqi5489 [place] [address]DrJesse Hernandez Hemoglobin (Bld) [Mass/Vol] 8.4 g/dL Critically low 12.0-16.0 [facility] Comment on above: Performed By: #### C BC ####[facility] W[address]fgkqqyg[address] [place], [place] [address]DrJesse Hernandez IG # 0.05 10e3/ul Critically high 0.00-0.03 [facility] Comment on above: Performed By: #### C BC ####[facility] Dxmxuwgzad156[address] [place], [place] [address]DrJesse Hernandez IG % 0.5 % Normal 0.0-0.5 [facility] Comment on above: Performed By: #### C BC ####[facility] Tepkrnizaf[address] [place], [place] [address]DrJesse Hernandez LYMPH # 1.6 103/ul Normal 1.2-3.8 [facility] Comment on above: Performed By: #### C BC ####[facility] Qkezfcbzem[address] [place], [place] [address]DrJesse Hernandez Lymphocytes/100 WBC (Bld) 17.1 % Critically low 20.5-60.0 [facility] Comment on above: Performed By: #### C BC ####[facility] Iuskisvehg[address] [place], [place] [address]DrJesse Hernandez MANUAL DIFF REQ NO Normal [facility] Comment on above: Performed By: #### C BC ####[facility] Zscijsofiw[address] [place], [place] [address]DrJesse Hernandez MCH (RBC) [Entitic mass] 30.1 pg Normal 26.7-34.0 [facility] Comment on above: Performed By: #### C BC ####[facility] Ohcysxajju0534 [place] [address]DrJesse Hernandez MCHC (RBC) [Mass/Vol] 31.3 g/dL Normal 29.9-35.2 [facility] Comment on above: Performed By: #### C BC ####[facility] Nezmvmmcvz5665 [place] [address]DrJesse Hernandez MCV (RBC) [Entitic vol] 96.1 fL Normal 81.0-99.0 [facility] Comment on above: Performed By: #### C BC ####[facility] [address]okcwxhurw[address] [place], [place] [address]DrJesse Hernandez MONO # 0.5 103/ul Normal 0.3-0.8 [facility] Comment on above: Performed By: #### C BC ####[facility] Pufkrnuixy[address] [place], [place] [address]DrJesse Hernandez Monocytes/100 WBC (Bld) 5.3 % Normal 1.7-12.0 [facility] Comment on above: Performed By: #### C BC ####[facility] Qlouoaqkov[address] [place], [place] [address]DrJesse Hernandez NEUT # 7.0 103/ul Critically high 1.4-6.5 [facility] Comment on above: Performed By: #### C BC ####[facility] Iasgmuxifz[address] [place], [place] [address]DrJesse Hernandez Neutrophils/100 WBC (Bld) 75.2 % Critically high 43.0-75.0 [facility] Comment on above: Performed By: #### C BC ####[facility] Lqjhsbezyl[address] [place], [place] [address]DrJesse Hernandez Platelet mean volume (Bld) [Entitic vol] 9.5 fL Normal 9.5-13.5 [facility] Comment on above: Performed By: #### C BC ####[facility] Pbvjdqekps[address] [place], [place] [address]DrJesse Hernandez PLT 257 103/ul Normal 150-450 [facility] Comment on above: Performed By: #### C BC ####[facility] Rpqzdabpdq2414 [place] [id number]. Ivette Hernandez RBC 2.79 106/ul Critically low 4.20-5.40 [facility] Comment on above: Performed By: #### C BC ####[facility] Fgxyiparwe4749 [place] [id number]. Ivette Hernandez WBC 9.3 103/ul Normal 4.0-11.0 [facility] Comment on above: Performed By: #### C BC ####[facility] Xcbkbmdfnp2654 [place] [id number]. Ivette Hernandez CULTURE BLOODon 09-06-2022 Microscopic examination of blood, culture Culture Observations: NO GROWTH AT 5 DAYS. Normal [facility] Comment on above: Performed By: #### B LDCX2 ####[facility] [address]ebmjjsjs[address] [place], [place] [address]Dr. Ivette Hernandez Microscopic examination of blood, culture Culture Observations: NO GROWTH AT 5 DAYS. Normal [facility] Comment on above: Performed By: #### B LDCX1 ####[facility] Pmdadrsuut0213 [place] [id number]. Ivette Hernandez CULTURE URINEon 09-06-2022 CULTURE URINE Culture Observations : LIGHT GROWTH OF MIXED GENITAL BOB. NO POTENTIAL PATHOGENS SEEN. Normal [facility] Comment on above: Performed By: #### U RCX ####[facility] Cqzyfdvnhd[address] [place], [place] [address]Dr. Ivette Hernandez Covid-19 PCR (CVDTBH)on SARS-CoV-2 (COVID-19) RNA MARRY+probe Ql (Unsp spec) Not detected Normal NOT DETECTED [facility] Comment on above: Result Comment: This test is not yet approved or cleared by the [place] FDA. When there are no FDA-approved or cleared tests available, and other criteria are met, FDA can make tests available under an emergency access mechanism called an Emergency Use Authorization (EUA). The EUA for this test is supported by the [place] of Health and Human Service's (HHS's) declaration [...] with SARS-CoV-2. Performed By: #### C VDTBH ####[facility] Pbafxfezvd[address] [place], [place] [address]Dr. Ivette Hernandez LACTATE/LACTIC ACIDon 2022 Lactate [Moles/Vol] 0.6 mmol/L Normal 0.4-2.0 [facility] Comment on above: Performed By: #### L ACT ####[facility] [address]ssexiqtu[address] [place], [place] [address]Dr. Ivette Hernandez Lactate [Moles/Vol] 0.8 mmol/L Normal 0.4-2.0 [facility] Comment on above: Performed By: #### L ACT ####[facility] K[address]vd[address] [place], [place] [address]Dr. jun Hernandez LIPASEon 09-06-2022 Lipase [Catalytic activity/Vol] 157.0 U/L Normal 73.0-393.0 [facility] Comment on above: Performed By: #### B SOLE CUTTER, HSTROPN, LIPA, CMP ####[facility] Dbkwbrxtpa[address] [place], [place] [address]Dr. Ivette Hernandez MAGNESIUMon 09-06-2022 Magnesium [Mass/Vol] 1.6 mg/dL Critically low 1.8-2.4 [facility] Comment on above: Performed By: #### C MADM, MG ####[facility] Adaaskjirj[address] [place], [place] [address]Dr. Ivette Hernandez PROF 14(COMP METB)on 023 Albumin [Mass/Vol] 2.5 g/dL Critically low 3.4-5.0 Th e [facility] Comment on above: Performed By: #### B SOLE CUTTER, HSTROPN, LIPA, CMP ####[facility] [address]kuq[address]rm[address] [place] [address]Dr. Ivette Hernandez Albumin/Globulin [Mass ratio] 0.5 {ratio} Normal [facility] Comment on above: Performed By: #### B SOLE CUTTER, HSTROPN, LIPA, CMP ####[facility] [address]ons[address] [place] [address]Dr. Ivette Hernandez ALP [Catalytic activity/Vol] 85 U/L Normal 46-116 [facility] Comment on above: Performed By: #### B SOLE CUTTER, HSTROPN, LIPA, CMP ####[facility] Sdotxwiaoj[address] [place] [address]Dr. Ivette Hernandez ALT [Catalytic activity/Vol] 18 U/L Normal 14-59 [facility] Comment on above: Performed By: #### B SOLE CUTTER, HSTROPN, LIPA, CMP ####[facility] W[address]uycu[address]mu[address] [place] [address]Dr. Ivette Hernandez Anion gap [Moles/Vol] 9.1 mmol/L Normal [facility] Comment on above: Performed By: #### B SOLE CUTTER, HSTROPN, LIPA, CMP ####[facility] Ixicqvicfo[address] [place] [address]Dr. Ivette Hernandez AST [Catalytic activity/Vol] 18 U/L Normal 15-37 [facility] Comment on above: Performed By: #### B SOLE CUTTER, HSTROPN, LIPA, CMP ####[facility] [address]ertsfkmhu[address] [place] [address]Dr. Ivette Hernandez Bilirubin [Mass/Vol] 0.5 mg/dL Normal 0.2-1.0 [facility] Comment on above: Performed By: #### B SOLE CUTTER, HSTROPN, LIPA, CMP ####[facility] Jpvcmgtxso[address] [place], [place] [address]Dr. Ivette Hernandez Calcium [Mass/Vol] 7.8 mg/dL Critically low 8.5-10.1 Th e [facility] Comment on above: Performed By: #### B SOLE CUTTER, HSTROPN, LIPA, CMP ####[facility] Nibxmhiira[address] [place] [address]Dr. Ivette Hernandez Chloride [Moles/Vol] 103 mmol/L Normal 98-107 [facility] Comment on above: Performed By: #### B SOLE CUTTER, HSTROPN, LIPA, CMP ####[facility] Nlmhljqfkj37[address] [place] [address]Dr. Ivette Hernandez CO2 [Moles/Vol] 32.8 mmol/L Critically high 21.0-32.0 [facility] Comment on above: Performed By: #### B SOLE CUTTER, HSTROPN, LIPA, CMP ####[facility] Rfnytzwelp[address] [place], [place] [address]Dr. Ivette Hernandez Creatinine [Mass/Vol] 1.79 mg/dL Critically high 0.55-1.02 [facility] Comment on above: Performed By: #### B SOLE CUTTER, HSTROPN, LIPA, CMP ####[facility] Sniyxinwpz[address] [place], [place] [address]Dr. Ivette Hernandez EGFR-AF ANGUILLAN 34 mL/min/1.73m2 Critically low >=60 [facility] Comment on above: Performed By: #### B SOLE CUTTER, HSTROPN, LIPA, CMP ####[facility] Ikscnxnpri[address] [place], [place] [address]Dr. Ivette Hernandez EGFR-NON AF ANGUILLAN 28 mL/min/1.73m2 Critically low >=60 [facility] Comment on above: Performed By: #### B SOLE CUTTER, HSTROPN, LIPA, CMP ####[facility] Apsxucfmit[address] [place], [place] [address]Dr. Ivette Hernandze Globulin (S) [Mass/Vol] 4.6 g/dL Normal [facility] Comment on above: Performed By: #### B SOLE CUTTER, HSTROPN, LIPA, CMP ####[facility] Beppvyibux[address] [place], [place] [address]Dr. Ivette Hernandez Glucose [Mass/Vol] 170 mg/dL Critically high 74-106 [facility] Comment on above: Performed By: #### B SOLE CUTTER, HSTROPN, LIPA, CMP ####[facility] [address]ivnjdpibv[address] [place] [address]Dr. Ivette Hernandez Potassium [Moles/Vol] 3.9 mmol/L Normal 3.5-5.1 [facility] Comment on above: Performed By: #### B SOLE CUTTER, HSTROPN, LIPA, CMP ####[facility] Czmbsjujjy[address] [place], [place] [address]Dr. Ivette Hernandez Protein [Mass/Vol] 7.1 g/dL Normal 6.4-8.2 [facility] Comment on above: Performed By: #### B SOLE CUTTER, HSTROPN, LIPA, CMP ####[facility] Ybcurvaabx[address] [place], [place] [address]Dr. Ivette Hernandez Sodium [Moles/Vol] 141 mmol/L Normal 136-145 [facility] Comment on above: Performed By: #### B SOLE CUTTER, HSTROPN, LIPA, CMP ####[facility] Azjzfpourm[address] [place], [place] [address]Dr. Ivette Hernandez Urea nitrogen [Mass/Vol] 31.0 mg/dL Critically high 7.0-18.0 [facility] Comment on above: Performed By: #### B SOLE CUTTER, HSTROPN, LIPA, CMP ####[facility] Pfzrmjjrzh[address] [place], [place] [address]Dr. Ivette Hernandez Urea nitrogen/Creatinine [Mass ratio] 17.3 mg/mg Normal [facility] Comment on above: Performed By: #### B SOLE CUTTER, HSTROPN, LIPA, CMP ####[facility] Lharynauye[address] [place], [place] [address]Dr. Ivette Hernandez PROTIMEon 09-06-2022 INR Coag (PPP) [Relative time] 1.13 {INR} Normal [facility] Comment on above: Performed By: #### P TT, PT ####[facility] Fofixcmtas[address] [place], [place] [address]Dr. Ivette Hernandez INR GUIDELINES SEE BELOW Normal [facility] Comment on above: Result Comment: MELANIE RED INR: 2.0 - 3.0 CONDITIONS NOT LISTED BELOW 2.5 - 3.5 FOR PROSTHETIC HEART VALVE REPLACEMENT 2.5 - 3.5 RECURRENT THROMBOSIS Performed By: #### P TT, PT ####[facility] [address]ic[address] [place], [place] [address]Ye. Ivette Hernandez PT Coag (PPP) [Time] 11.9 s Critically high 9.0-11.6 [facility] Comment on above: Performed By: #### P TT, PT ####[facility] [address]rmdr[address] [place] [id number]. Ivette Hernandez PTTon 09-06-2022 aPTT Coag (Bld) [Time] 29.6 s Normal 22.3-36.2 [facility] Comment on above: Performed By: #### P TT, PT ####[facility] Ajjyhpoxur[address] [place] [address]DrJesse Ivette Hernandez SYMPTOMATIC COVID-19 ANTIGEN on 09-06-2022 EUA Statement SEE BELOW Normal The [facility] Comment on above: Result Comment: This [...] revoked sooner. Performed By: #### C VDAGS ####[facility] Ublenhmdwh[address] [place] [address]Dr. Ivette Hernandez SARS-CoV-2 (COVID-19) RNA MARRY+probe Ql (Unsp spec) Negative Normal NEGATIVE [facility] Comment on above: Performed By: #### C VDAGS ####[facility] Uunzshsvyr[address] [place], [place] [address]Dr. Ivette Hernandez TROPONIN, HIGH SENSITIVITYon 09-06-2022 HSTROP 13.1 pg/mL Normal 4.0-51.3 [facility] Comment on above: Result Comment: CUT- OFF POINTS HAVE BEEN ESTABLISHED BASED ON THE FOURTH UNIVERSAL DEFINITIONS OF MYOCARDIALINFARCTION. THE UPPER REFERENCE LIMIT (URL) OF TROPONIN, DEFINED THE 99TH PERCENTILE OFcTnI DISTRIBUTION IN A REFERENCE POPULATION, HAS BEEN CONFIRMED THE DECISION THRESHOLDFOR MD DIAGNOSIS. Performed By: #### B SOLE CUTTER, HSTROPN, LIPA, CMP ####[facility] Htuqcyotzs[address] [place], [place] [address]Dr. Ivette Hernandez UA RANDOM W/MICROSCOPICon BACTERIA SMALL Abnormal NONE SEEN [facility] Comment on above: Performed By: #### U AMIC ####[facility] Imoxhknvyf[address] [place], [place] [address]Dr. Ivette Hernandez Bilirubin Ql (U) Negative Normal NEGATIVE [facility] Comment on above: Performed By: #### U AMIC ####[facility] Mtsowhjudr[address] [place], [place] [address]Dr. Ivette Hernandez CAST NONE SEEN Normal NONE SEEN [facility] Comment on above: Performed By: #### U AMIC ####[facility] [address]mf[address] [place] [address]Dr. Ivette Hernandez Clarity (U) CLEAR Normal CLEAR [facility] Comment on above: Performed By: #### U AMIC ####[facility] Bqjvwovper[address] [place] [address]Dr. Ivette Hernandez Color (U) LT. YELLOW Normal YELLOW [facility] Comment on above: Performed By: #### U AMIC ####[facility] Tjuxwqnjlj[address] [place] [address]Dr. Ivette Hernandez Crystals LM Nom (Urine sed) NONE SEEN Normal NONE SEEN [facility] Comment on above: Performed By: #### U AMIC ####[facility] Bzxbeuxigh57[address] [place] [address]Dr. Ivette Hernandez Epithelial cells LM Ql (Urine sed) FEW Abnormal NONE SEEN /RARE [facility] Comment on above: Performed By: #### U AMIC ####[facility] Lykqtovdbd26[address] [place] [address]Dr. Ivette Hernandez Glucose Ql (U) Negative Normal NEGATIVE [facility] Comment on above: Performed By: #### U AMIC ####[facility] Kjjkzdxz[address] [place], [place] [address]Dr. Ivette Hernandez Hemoglobin Ql (U) SMALL Abnormal NEGATIVE [facility] Comment on above: Performed By: #### U AMIC ####[facility] Ohnbridbpp[address] [place], [place] [address]Dr. Ivette Hernandez Ketones Ql (U) Negative Normal NEGATIVE [facility] Comment on above: Performed By: #### U AMIC ####[facility] Ekqqynwljd[address] [place], [place] [address]Dr. Ivette Hernandez LEUKOCYTES TRACE Abnormal NEGATIVE [facility] Comment on above: Performed By: #### U AMIC ####[facility] Jgjgfatfbi[address] [place], [place] [address]Dr. Ivette Hernandez MUCOUS NONE SEEN Normal NONE SEEN [facility] Comment on above: Performed By: #### U AMIC ####[facility] Smxwisukcy[address] [place], [place] [address]Dr. Ivette Hernandez Nitrite Ql (U) Negative Normal NEGATIVE [facility] Comment on above: Performed By: #### U AMIC ####[facility] Csgleyctvi[address] [place], [place] [address]Dr. Ivette Hernandez pH (U) 7.5 [pH] Normal 5-9 [facility] Comment on above: Performed By: #### U AMIC ####[facility] Reuizzfsyf[address] [place], [place] [address]Dr. Ivette Hernandez RBC 0-2 Normal 0-2 [facility] Comment on above: Performed By: #### U AMIC ####[facility] Dftvaceaor[address] [place], [place] [address]Dr. Ivette Hernandez SPEC GRAVITY 1.020 Normal 1.005-<=1.0 25 [facility] Comment on above: Performed By: #### U AMIC ####[facility] Tmd[address]ckmuj[address] [place] [address]Dr. Cherjun David UA PROTEIN 300 mg/dl Abnormal NEGATIVE/ TRACE [facility] Comment on above: Performed By: #### U AMIC ####[facility] Fclzpndgpo5[address] [place] [address]Dr. Ivette Hernandez Urobilinogen Qn (U) 0.2 {Mack'U}/dL Normal 0.2 - 1. 0 [facility] Comment on above: Performed By: #### U AMIC ####[facility] Ywyzzvvrgh[address] [place], [place] [address]Dr. Ivette Hernandez WBC 5-10 Abnormal NONE SEEN [facility] Comment on above: Performed By: #### U AMIC ####[facility] Oylhmfdrdp[address] [place], [place] [address]Dr. Ivette Hernandez XR CHEST 1 Von 09-06-2022 XR CHEST 1 V Normal [facility] PROF CHEM 8 (BAS METB)on Anion gap [Moles/Vol] 12.3 mmol/L Normal [facility] Comment on above: Performed By: #### B MP ####[facility] Llvyuyeuwn[address] [place] [address]Dr. Ivette Hernandez Calcium [Mass/Vol] 9.4 mg/dL Normal 8.5-10.1 [facility] Comment on above: Performed By: #### B MP ####[facility] Sehxevwzdf49[address] [place] [address]Dr. Ivette Hernandez Chloride [Moles/Vol] 105 mmol/L Normal 98-107 [facility] Comment on above: Performed By: #### B MP ####[facility] Mpbzywgdiq8652 [place] [address]Dr. Ivette Hernandez CO2 [Moles/Vol] 30.2 mmol/L Normal 21.0-32.0 [facility] Comment on above: Performed By: #### B MP ####[facility] [address]aufjawqt[address] [place] [id number]. Ivette Hernandez Creatinine [Mass/Vol] 2.66 mg/dL Critically high 0.55-1.02 [facility] Comment on above: Performed By: #### B MP ####[facility] Tcuiadgdmj[address]646 [place] [address]Dr. Ivette Hernandez EGFR-AF ANGUILLAN 21 mL/min/1.73m2 Critically low >=60 [facility] Comment on above: Performed By: #### B MP ####[facility] Oeemrcfxav[address] [place] [address]Dr. Ivette Hernandez EGFR-NON AF ANGUILLAN 18 mL/min/1.73m2 Critically low >=60 [facility] Comment on above: Performed By: #### B MP ####[facility] Lydezcwgai[address] [place], [place] [address]Dr. Ivette Hernandez Glucose [Mass/Vol] 126 mg/dL Critically high 74-106 [facility] Comment on above: Performed By: #### B MP ####[facility] Fyohazegba[address] [place], [place] [address]Dr. Ivette Hernandez Potassium [Moles/Vol] 4.5 mmol/L Normal 3.5-5.1 [facility] Comment on above: Performed By: #### B MP ####[facility] Qowhiehtft[address] [place], [place] [address]Dr. Cherjun Hernandez Sodium [Moles/Vol] 143 mmol/L Normal 136-145 [facility] Comment on above: Performed By: #### B MP ####[facility] Qabswqjlof[address] [place], [place] [address]Dr. Ivette Hernandez Urea nitrogen [Mass/Vol] 55.0 mg/dL Critically high 7.0-18.0 [facility] Comment on above: Performed By: #### B MP ####[facility] Szqceljrwr[address] [place], [place] [address]Dr. Ivette Hernandez Urea nitrogen/Creatinine [Mass ratio] 20.7 mg/mg Normal [facility] Comment on above: Performed By: #### B MP ####[facility] Wq[address]hotx[address] [place] [id number]. Ivette Hernandez Office Visiton 07-06-2022 Follow-up visit [id number] Maria G Hagen 1950 F Date Provider Department Center 07/06/2022 Wilmer-DARLENE MAXWELL CARD [facility] Family History Problem Relation Age of Onset Stroke Mother Hypertension Mother Heart attack Father Hypertension Sister Heart attack Sister Heart attack Brother Family Status - Relation Status Age at Mother Father Sister Brother Level of Service:40944 NE OFFICE/OUTPATIENT ESTABLISHED MOD MDM 30-39 MIN Reason for Visit and Comments: Congestive Heart Failure [127] Atrial Fibrillation [80] Normal [facility] METANEPHRINES PLASMA FREEon 06-24-2022 Metanephrine, Pl 16.5 pg/mL Normal 0.0-88.0 [facility] Comment on above: Performed By: #### M ETANPF ####[facility] Yqmzvnbzgv4[address] [place] [address]Dr. Ivette Hernandez Normetanephrine, Pl 67.2 pg/mL Normal 0.0-285.2 [facility] Comment on above: Performed By: #### M ETANPF ####[facility] [address]ies[address] [place], [place] [address]Dr. Ivette Hernandez ALDOSTERONE: RENIN RATIOon 0 06-20-2022 Aldos/Renin Ratio 12.0 Normal 0.0-30.0 [facility] Comment on above: Result Comment: Unit s: ng/dL per ng/mL/hr Performed By: #### A LDOREN ####[facility] Cvsujpsxqc36[address] [place] [address]Dr. Ivette Hernandez Aldosterone 3.8 ng/dL Normal 0.0-30.0 [facility] Comment on above: Performed By: #### A LDOREN ####[facility] Xvlcbspghy0939 [place] [address]Dr. Ivette Hernandez Renin Activity, Plasma 0.316 ng/mL/hr Normal 0.167-5.380 [facility] Comment on above: Performed By: #### A LDOREN ####[facility] Z[address]ax[address] [place], [place] [address]Aw. Ivette Hernandez CORTISOLon 06-16-2022 Cortisol 2.7 ug/dL Normal [facility] Comment on above: Result Comment: Too isol AM 6.2 - 19.4 Cortisol PM 2.3 - 11.9 Performed By: #### C ORTISO ####[facility] Ovwqoaskxf[address] [place], [place] [address]Eg. Ivette Hernandez URINALYSISOrdered By: Iwona suárez on [...] PM) Normal Negative [facility] UA Auto SS [place].plasma/Lithiu m.RBC (Bld) [Mass ratio] 4-20 /HPF Normal [...] (06/10/22 12:20 PM) Invalid Interpretation Code Negative [facility] UA Auto SS Specific gravity (U) [Rel density] 1.020 *NA* (06/10/22 12:20 PM) Invalid Interpretation Code 1.005 - 1.030 [facility] UA Auto SS UA Spec Desc Random Urine (06/10/22 12:20 PM) Normal [facility] UA Auto SS Urobilinogen Qn (U) 0.4414001 {Mack'U}/dL Normal 0.0 - 1.0 EU/dL [facility] UA Auto SS WBC Auto Ql (U) 2+ *ABN* (06/10/22 12:20 PM) Invalid Interpretation Code Negative [facility] UA Auto SS WBC LM.HPF (Urine sed) [#/Area] /[HPF] Invalid Interpretation Code 0-5/HPF [facility] UA Auto SS CT ABD/PELV W CONon 05-06-19 CT ABD/PELV W CON Normal [facility] CREATININEon 05-05-2022 Creatinine [Mass/Vol] 1.49 mg/dL Critically high 0.55-1.02 [facility] Comment on above: Performed By: #### C BENITA ####[facility] Rhwyijlxvf75[address] [place] [address]Dr. Ivette Hernandez EGFR-AF ANGUILLAN 42 mL/min/1.73m2 Critically low >=60 [facility] Comment on above: Performed By: #### C BENITA ####[facility] Fwerntzjjt5494 [place] [address]DrJesse Hernandez EGFR-NON AF ANGUILLAN 34 mL/min/1.73m2 Critically low >=60 [facility] Comment on above: Performed By: #### C BENITA ####[facility] Ghxmwmhzdt1814 [place] [address]DrJesse Hernandez PROF CHEM 8 (BAS METB)on Anion gap [Moles/Vol] 12.6 mmol/L Normal [facility] Comment on above: Performed By: #### B MP ####[facility] Huqwoombpr8805 [place] [address]DrJesse Hernandez Calcium [Mass/Vol] 8.0 mg/dL Critically low 8.5-10.1 [facility] Comment on above: Performed By: #### B MP ####[facility] Lhgbgoguzx1007 [place] [address]Dr. Ivette David Chloride [Moles/Vol] 103 mmol/L Normal 98-107 [facility] Comment on above: Performed By: #### B MP ####[facility] Ecgejjqxxl0065 [place] [address]Dr. Cherjun David CO2 [Moles/Vol] 28.7 mmol/L Normal 21.0-32.0 [facility] Comment on above: Performed By: #### B MP ####[facility] Cawwkljqps[address] [place], [place] [address]Dr. Cherjun David Creatinine [Mass/Vol] 1.54 mg/dL Critically high 0.55-1.02 [facility] Comment on above: Performed By: #### B MP ####[facility] Vbnlyhiauf[address] [place], [place] [address]Dr. Cherjun David EGFR-AF ANGUILLAN 40 mL/min/1.73m2 Critically low >=60 [facility] Comment on above: Performed By: #### B MP ####[facility] Icfxwkatvi[address] [place], [place] [address]Dr. Cherjun David EGFR-NON AF ANGUILLAN 33 mL/min/1.73m2 Critically low >=60 [facility] Comment on above: Performed By: #### B MP ####[facility] Pbptofpuxk3364 [place] [address]Dr. Ivette Hernandez Glucose [Mass/Vol] 126 mg/dL Critically high 74-106 [facility] Comment on above: Performed By: #### B MP ####[facility] Jrfmmiargq[address] [place], [place] [address]Dr. Ivette Hernandez Potassium [Moles/Vol] 3.3 mmol/L Critically low 3.5-5.1 [facility] Comment on above: Performed By: #### B MP ####[facility] Oynabfoihp[address] [place], [place] [address]Dr. Ivette Hernandez Sodium [Moles/Vol] 141 mmol/L Normal 136-145 [facility] Comment on above: Performed By: #### B MP ####[facility] Jlspkompmk[address] [place], [place] [address]Dr. Ivette Hernandez Urea nitrogen [Mass/Vol] 21.0 mg/dL Critically high 7.0-18.0 [facility] Comment on above: Performed By: #### B MP ####[facility] Lrpvrlqexm[address] [place], [place] [address]Dr. Ivette Hernandez Urea nitrogen/Creatinine [Mass ratio] 13.6 mg/mg Normal [facility] Comment on above: Performed By: #### B MP ####[facility] Vjyfoejibu[address] [place], [place] [address]Dr. Ivette Hernandez CBC AUTO DIFFon 04-13-2022 BASO # 0.0 103/ul Normal 0.0-0.1 [facility] Comment on above: Performed By: #### C BC ####[facility] Sthuujraog[address] [place], [place] [address]Dr. Ivette Hernandez Basophils/100 WBC (Bld) 0.3 % Normal 0.2-2.0 [facility] Comment on above: Performed By: #### C BC ####[facility] Blsgunnbbs[address] [place], [place] [address]Dr. Ivette Hernandez EO # 0.3 103/ul Normal 0.0-0.7 [facility] Comment on above: Performed By: #### C BC ####[facility] [address]qyjgptzp[address] [place], [place] [address]Dr. Ivette Hernandez Eosinophils/100 WBC (Bld) 4.3 % Normal 0.9-7.0 [facility] Comment on above: Performed By: #### C BC ####[facility] Xzqqvjvfyn[address] [place], [place] [address]Dr. Ivette Hernandez Erythrocyte distribution width (RBC) [Ratio] 14.2 % Normal 11.0-15.0 [facility] Comment on above: Performed By: #### C BC ####[facility] Rjtrcgturz[address] [place], [place] [address]Dr. Ivette Hernandez Hematocrit (Bld) [Volume fraction] 26.2 % Critically low 36.0-48.0 [facility] Comment on above: Performed By: #### C BC ####[facility] Iwruvoemmb3723 [place] [address]DrJesse Ivette Hernandez Hemoglobin (Bld) [Mass/Vol] 8.0 g/dL Critically low 12.0-16.0 [facility] Comment on above: Performed By: #### C BC ####[facility] Aazyhzduxm[address] [place], [place] [address]DrJesse Hernandez IG # 0.03 10e3/ul Normal 0.00-0.03 [facility] Comment on above: Performed By: #### C BC ####[facility] Udmpxqqtbd[address] [place], [place] [address]Dr. Ivette Hernandez IG % 0.5 % Normal 0.0-0.5 [facility] Comment on above: Performed By: #### C BC ####[facility] Acofndrwon[address] [place], [place] [address]DrJesse Hernandez LYMPH # 2.2 103/ul Normal 1.2-3.8 [facility] Comment on above: Performed By: #### C BC ####[facility] Tmquziszsw[address] [place], [place] [address]DrJesse Cherjun Hernandez Lymphocytes/100 WBC (Bld) 35.5 % Normal 20.5-60.0 [facility] Comment on above: Performed By: #### C BC ####[facility] Uhvunywbsc[address] [place], [place] [address]DrJesse Hernandez MANUAL DIFF REQ NO Normal [facility] Comment on above: Performed By: #### C BC ####[facility] Buwmbrpkzv[address] [place], [place] [address]DrJesse Hernandez MCH (RBC) [Entitic mass] 28.0 pg Normal 26.7-34.0 [facility] Comment on above: Performed By: #### C BC ####[facility] Kgajbluefd[address] [place], [place] [address]Dr. Ivette Hernandez MCHC (RBC) [Mass/Vol] 30.5 g/dL Normal 29.9-35.2 [facility] Comment on above: Performed By: #### C BC ####[facility] Nfvxqpckls4380 [place] [address]DrJesse Hernandez MCV (RBC) [Entitic vol] 91.6 fL Normal 81.0-99.0 [facility] Comment on above: Performed By: #### C BC ####[facility] [address]zwbf[address]zycg[address] [place], [place] [address]DrJesse Hernandez MONO # 0.5 103/ul Normal 0.3-0.8 [facility] Comment on above: Performed By: #### C BC ####[facility] Gye[address]fsavp[address] [place], [place] [address]DrJesse Hernandez Monocytes/100 WBC (Bld) 8.2 % Normal 1.7-12.0 [facility] Comment on above: Performed By: #### C BC ####[facility] Talxzuyrdm[address] [place], [place] [address]DrJesse Hernandez NEUT # 3.2 103/ul Normal 1.4-6.5 [facility] Comment on above: Performed By: #### C BC ####[facility] [address] [place], [place] [address]DrJesse Hernandez Neutrophils/100 WBC (Bld) 51.2 % Normal 43.0-75.0 [facility] Comment on above: Performed By: #### C BC ####[facility] H[address] [place], [place] [address]DrJesse Hernandez Platelet mean volume (Bld) [Entitic vol] 9.8 fL Normal 9.5-13.5 [facility] Comment on above: Performed By: #### C BC ####[facility] Qvfshyalmf[address] [place], [place] [address]DrJesse Hernandez PLT 168 103/ul Normal 150-450 [facility] Comment on above: Performed By: #### C BC ####[facility] Lptmucmfox[address] [place], [place] [address]DrJesse Hernandez RBC 2.86 106/ul Critically low 4.20-5.40 [facility] Comment on above: Performed By: #### C BC ####[facility] Uvnqkzuoqx6[address] [place] [address]Dr. Ivette Hernandez WBC 6.2 103/ul Normal 4.0-11.0 [facility] Comment on above: Performed By: #### C BC ####[facility] [address]igsti[address] [place] [address]Dr. Ivette Hernandez Office Visiton 04-13-2022 Follow-up visit [id number] Maria G Hagen 1950 F Date Provider Department Center 04/13/2022 MADI MITCHELL [facility] Family History Problem Relation Age of Onset Stroke Mother Hypertension Mother Heart attack Father Hypertension Sister Heart attack Sister Heart attack Brother Family Status - Relation Status Age at Mother Father Sister Brother Level of Service:66889 NE OFFICE/OUTPATIENT ESTABLISHED MOD MDM 30-39 MIN Reason for Visit and Comments: Congestive Heart Failure [127] Atrial Fibrillation [80] Normal [facility] POINT OF CARE GLUCOSEon 04-02 Glucose [Mass/Vol] 140 mg/dL Critically high 74-106 T [facility] Comment on above: Performed By: #### P OCGLUC ####[facility] Fgguayygvk1886 [place] [address]Dr. Ivette Hernandez PROF CHEM 8 (BAS METB)on Anion gap [Moles/Vol] 7.9 mmol/L Normal [facility] Comment on above: Performed By: #### B MP ####[facility] Olldgbzpyd7841 [place] [address]DrJesse Hernandez Calcium [Mass/Vol] 7.9 mg/dL Critically low 8.5-10.1 Th [facility] Comment on above: Performed By: #### B MP ####[facility] Nllrpawowy35[address] [place] [address]DrJesse Hernandez Chloride [Moles/Vol] 106 mmol/L Normal 98-107 [facility] Comment on above: Performed By: #### B MP ####[facility] Vtdtbggbek2832 [place] [id number]. Ivette Hernandez CO2 [Moles/Vol] 32.0 mmol/L Normal 21.0-32.0 [facility] Comment on above: Performed By: #### B MP ####[facility] Znrfshdrli6611 [place] [id number]. Ivette Hernandez Creatinine [Mass/Vol] 1.67 mg/dL Critically high 0.55-1.02 [facility] Comment on above: Performed By: #### B MP ####[facility] Zlegtcdagv6500 [place] [id number]. Ivette Hernandez EGFR-AF ANGUILLAN 36 mL/min/1.73m2 Critically low >=60 [facility] Comment on above: Performed By: #### B MP ####[facility] Nklbzdqyum[address] [place], [place] [address]Dr. Cherjun David EGFR-NON AF ANGUILLAN 30 mL/min/1.73m2 Critically low >=60 [facility] Comment on above: Performed By: #### B MP ####[facility] Vtaou[address]abul[address] [place], [place] [address]Dr. Ivette Hernandez Glucose [Mass/Vol] 91 mg/dL Normal 74-106 The [facility] Comment on above: Performed By: #### B MP ####[facility] Cwjznsudjl2[address] [place], [place] [address]Dr. Ivette Hernandez Potassium [Moles/Vol] 3.9 mmol/L Normal 3.5-5.1 [facility] Comment on above: Performed By: #### B MP ####[facility] Nxpkdifbdm[address] [place], [place] [address]Dr. Ivette Hernandez Sodium [Moles/Vol] 142 mmol/L Normal 136-145 [facility] Comment on above: Performed By: #### B MP ####[facility] Mcuovgvzts[address] [place], [place] [address]Dr. Ivette Hernandez Urea nitrogen [Mass/Vol] 26.0 mg/dL Critically high 7.0-18.0 [facility] Comment on above: Performed By: #### B MP ####[facility] Mdccdhidgq3365 [place] [id number]. Ivette Hernandez Urea nitrogen/Creatinine [Mass ratio] 15.6 mg/mg Normal [facility] Comment on above: Performed By: #### B MP ####[facility] Qxfllqpqeg[address] [place], [place] [address]Dr. Ivette Hernandez CBC AUTO DIFFon 04-12-2022 BASO # 0.0 103/ul Normal 0.0-0.1 [facility] Comment on above: Performed By: #### C BC ####[facility] Jagohpmbsa[address] [place], [place] [address]Dr. Cherjun Hernandez Basophils/100 WBC (Bld) 0.5 % Normal 0.2-2.0 [facility] Comment on above: Performed By: #### C BC ####[facility] Fkxvathmfo[address] [place], [place] [address]Dr. Ivette David EO # 0.3 103/ul Normal 0.0-0.7 [facility] Comment on above: Performed By: #### C BC ####[facility] Enhrwugevp[address] [place], [place] [address]Dr. Ivette David Eosinophils/100 WBC (Bld) 4.4 % Normal 0.9-7.0 [facility] Comment on above: Performed By: #### C BC ####[facility] Cvleulalss[address] [place], [place] [address]Dr. Ivette Hernandez Erythrocyte distribution width (RBC) [Ratio] 14.2 % Normal 11.0-15.0 [facility] Comment on above: Performed By: #### C BC ####[facility] Xripilqxks[address] [place], [place] [address]Dr. Ivette Hernandez Hematocrit (Bld) [Volume fraction] 25.9 % Critically low 36.0-48.0 [facility] Comment on above: Performed By: #### C BC ####[facility] Wuwthqltpf[address] [place], [place] [address]Dr. Ivette Hernandez Hemoglobin (Bld) [Mass/Vol] 8.0 g/dL Critically low 12.0-16.0 [facility] Comment on above: Performed By: #### C BC ####[facility] Gwdmcxsqxp0871 [place] [id number]. Ivette Hernandez IG # 0.03 10e3/ul Normal 0.00-0.03 [facility] Comment on above: Performed By: #### C BC ####[facility] Ejwvkcsuzj3[address] [place] [id number]. Ivette Hernandez IG % 0.5 % Normal 0.0-0.5 [facility] Comment on above: Performed By: #### C BC ####[facility] Rtjpjotxcp8514 [place] [address]Dr. Ivette Hernandez LYMPH # 2.1 103/ul Normal 1.2-3.8 [facility] Comment on above: Performed By: #### C BC ####[facility] Ipvedftohx7870 [place] [address]Dr. Ivette Hernandez Lymphocytes/100 WBC (Bld) 35.0 % Normal 20.5-60.0 [facility] Comment on above: Performed By: #### C BC ####[facility] Cylfxbjmon264[address] [place] [address]Dr. Ivette Hernandez MANUAL DIFF REQ NO Normal [facility] Comment on above: Performed By: #### C BC ####[facility] Kxaoeknmsb9114 [place] [id number]. Ivette Hernandez MCH (RBC) [Entitic mass] 28.3 pg Normal 26.7-34.0 [facility] Comment on above: Performed By: #### C BC ####[facility] Sfjlvdsmuz0930 [place] [phone]. Ivette Hernandez MCHC (RBC) [Mass/Vol] 30.9 g/dL Normal 29.9-35.2 [facility] Comment on above: Performed By: #### C BC ####[facility] Uxevsaikmy2[address] [place] [address]Dr. Ivette Hernandez MCV (RBC) [Entitic vol] 91.5 fL Normal 81.0-99.0 [facility] Comment on above: Performed By: #### C BC ####[facility] Ybflavfmwf1350 [place] [id number]. Ivette Hernandez MONO # 0.4 103/ul Normal 0.3-0.8 [facility] Comment on above: Performed By: #### C BC ####[facility] Xkfspoywie7882 [place] [id number]. Ivette Hernandez Monocytes/100 WBC (Bld) 7.1 % Normal 1.7-12.0 [facility] Comment on above: Performed By: #### C BC ####[facility] Ckstfocpzt0561 [place] [id number]. Ivette Hernandez NEUT # 3.1 103/ul Normal 1.4-6.5 [facility] Comment on above: Performed By: #### C BC ####[facility] Idxnhgwnnb7979 [place] [address]Dr. Ivette Hernandez Neutrophils/100 WBC (Bld) 52.5 % Normal 43.0-75.0 [facility] Comment on above: Performed By: #### C BC ####[facility] Dbglzumwal8988 [place] [id number]. Ivette Hernandez Platelet mean volume (Bld) [Entitic vol] 9.6 fL Normal 9.5-13.5 [facility] Comment on above: Performed By: #### C BC ####[facility] Yfrhbtqxzd1349 [place] [id number]. Ivette Hernandez PLT 163 103/ul Normal 150-450 [facility] Comment on above: Performed By: #### C BC ####[facility] Mawnnxrrpz8840 [place] [id number]. Ivette Hernandez RBC 2.83 106/ul Critically low 4.20-5.40 [facility] Comment on above: Performed By: #### C BC ####[facility] Nxphljoyxe4407 [place] [phone]. Ivette Hernandez WBC 5.9 103/ul Normal 4.0-11.0 [facility] Comment on above: Performed By: #### C BC ####[facility] Tgxctukuqh1814 [place] [id number]. Ivette Hernandez CULTURE URINEon 04-12-2022 CULTURE URINE Normal [facility] Comment on above: Performed By: #### U RCX ####[facility] Xnozosfhzk8682 [place] [phone]. Cherjun David POINT OF CARE GLUCOSEon 04-02 Glucose [Mass/Vol] 106 mg/dL Normal 74-106 [facility] Comment on above: Performed By: #### P OCGLUC ####[facility] Rqtefaoxim5864 [place] [address]Dr. Cherjun Hernandez Glucose [Mass/Vol] 212 mg/dL Critically high 74-106 [facility] Comment on above: Performed By: #### P OCGLUC ####[facility] Xbvwqfljfm4263 [place] [address]Dr. Ivette Hernandez Glucose [Mass/Vol] 136 mg/dL Critically high 74-106 [facility] Comment on above: Performed By: #### P OCGLUC ####[facility] Sbfhqxxpjq2670 [place] [address]Dr. Ivette Hernandez PROF CHEM 8 (BAS METB)on Anion gap [Moles/Vol] 9.6 mmol/L Normal [facility] Comment on above: Performed By: #### B MP ####[facility] Gqnpvzdeyi[address] [place], [place] [address]Dr. Ivette Hernandez Calcium [Mass/Vol] 7.5 mg/dL Critically low 8.5-10.1 [facility] Comment on above: Performed By: #### B MP ####[facility] Velsoyrjhl5057 [place] [address]Dr. Ivette Hernandez Chloride [Moles/Vol] 106 mmol/L Normal 98-107 [facility] Comment on above: Performed By: #### B MP ####[facility] Drgukcmroq0606 [place] [address]Dr. Ivette Hernandez CO2 [Moles/Vol] 29.3 mmol/L Normal 21.0-32.0 [facility] Comment on above: Performed By: #### B MP ####[facility] Bpddxbiyco8177 [place] [id number]. Ivette Hernandez Creatinine [Mass/Vol] 1.48 mg/dL Critically high 0.55-1.02 [facility] Comment on above: Performed By: #### B MP ####[facility] Ykiybospnp5571 [place] [id number]. Ivette David EGFR-AF ANGUILLAN 42 mL/min/1.73m2 Critically low >=60 [facility] Comment on above: Performed By: #### B MP ####[facility] Wiqukqtkja5993 [place] [phone]. Ivette David EGFR-NON AF ANGUILLAN 35 mL/min/1.73m2 Critically low >=60 [facility] Comment on above: Performed By: #### B MP ####[facility] Uwkqioagdr6433 [place] [id number]. Ivette Hernandez Glucose [Mass/Vol] 87 mg/dL Normal 74-106 [facility] Comment on above: Performed By: #### B MP ####[facility] Olihjgrcuo1393 [place] [id number]. Ivette Hernandez Potassium [Moles/Vol] 3.9 mmol/L Normal 3.5-5.1 [facility] Comment on above: Performed By: #### B MP ####[facility] Zhxwiyxeaa8572 [place] [phone]. Ivette Hernandez Sodium [Moles/Vol] 141 mmol/L Normal 136-145 [facility] Comment on above: Performed By: #### B MP ####[facility] Cmejfuxwuc4257 [place] [phone]. Ivette Hernandez Urea nitrogen [Mass/Vol] 24.0 mg/dL Critically high 7.0-18.0 [facility] Comment on above: Performed By: #### B MP ####[facility] Snqanbdxwq4469 [place] [phone]. Ivette Hernandez Urea nitrogen/Creatinine [Mass ratio] 16.2 mg/mg Normal [facility] Comment on above: Performed By: #### B MP ####[facility] Jerouytvcn4768 [place] [address]Dr. Ivette Hernandez CBC AUTO DIFFon 04-11-2022 BASO # 0.0 103/ul Normal 0.0-0.1 [facility] Comment on above: Performed By: #### C BC ####[facility] Tvgh[address]tecf[address] [place], [place] [address]Dr. Ivette Hernandez Basophils/100 WBC (Bld) 0.3 % Normal 0.2-2.0 [facility] Comment on above: Performed By: #### C BC ####[facility] Xitvqoecbi[address] [place], [place] [address]Dr. Ivette Hernandez EO # 0.2 103/ul Normal 0.0-0.7 [facility] Comment on above: Performed By: #### C BC ####[facility] Gymmszwgez0[address] [place], [place] [address]Dr. Ivette Hernandez Eosinophils/100 WBC (Bld) 2.8 % Normal 0.9-7.0 [facility] Comment on above: Performed By: #### C BC ####[facility] Frxkatawbd[address] [place], [place] [address]Dr. Ivette Hernandez Erythrocyte distribution width (RBC) [Ratio] 14.4 % Normal 11.0-15.0 [facility] Comment on above: Performed By: #### C BC ####[facility] Vbmfllostp[address] [place], [place] [address]Dr. Ivette Hernandez Hematocrit (Bld) [Volume fraction] 24.9 % Critically low 36.0-48.0 [facility] Comment on above: Performed By: #### C BC ####[facility] Haqyrelwjv[address] [place], [place] [address]Dr. Ivette Hernandez Hemoglobin (Bld) [Mass/Vol] 7.7 g/dL Critically low 12.0-16.0 [facility] Comment on above: Performed By: #### C BC ####[facility] Csuwqlzmyu[address] [place], [place] [address]Dr. Ivette Hernandez IG # 0.02 10e3/ul Normal 0.00-0.03 [facility] Comment on above: Performed By: #### C BC ####[facility] Ynbmxmyovy6710 [place] [id number] Ivette Hernandez IG % 0.3 % Normal 0.0-0.5 [facility] Comment on above: Performed By: #### C BC ####[facility] Mdarfwmcrn7010 [place] [address]DrJesse Ivette Hernandez LYMPH # 1.9 103/ul Normal 1.2-3.8 [facility] Comment on above: Performed By: #### C BC ####[facility] Asosiuuslx5807 [place] [address]DrJesse Ivette David Lymphocytes/100 WBC (Bld) 32.7 % Normal 20.5-60.0 [facility] Comment on above: Performed By: #### C BC ####[facility] Xeosyosrwn[address] [place], [place] [address]DrJesse Ivette David MANUAL DIFF REQ NO Normal [facility] Comment on above: Performed By: #### C BC ####[facility] Kxzpxhwtab0141 [place] [id number] Ivette David MCH (RBC) [Entitic mass] 28.3 pg Normal 26.7-34.0 [facility] Comment on above: Performed By: #### C BC ####[facility] Lyveetpclf7354 [place] [id number] Ivette David MCHC (RBC) [Mass/Vol] 30.9 g/dL Normal 29.9-35.2 [facility] Comment on above: Performed By: #### C BC ####[facility] Hvzjxdhyos5293 [place] [id number] Ivette David MCV (RBC) [Entitic vol] 91.5 fL Normal 81.0-99.0 [facility] Comment on above: Performed By: #### C BC ####[facility] Wsrlsgwwrp[address] [place], [place] [address]DrJesse Ivette David MONO # 0.5 103/ul Normal 0.3-0.8 [facility] Comment on above: Performed By: #### C BC ####[facility] Hrkhbtsovs0840 [place] [address]Dr. Ivette Hernandez Monocytes/100 WBC (Bld) 8.2 % Normal 1.7-12.0 [facility] Comment on above: Performed By: #### C BC ####[facility] Jixxtxrqgl0501 [place] [address]Dr. Ivette Hernandez NEUT # 3.2 103/ul Normal 1.4-6.5 [facility] Comment on above: Performed By: #### C BC ####[facility] Dkzynbojto9487 [place] [address]Dr. Ivette Hernandez Neutrophils/100 WBC (Bld) 55.7 % Normal 43.0-75.0 [facility] Comment on above: Performed By: #### C BC ####[facility] Xrfynpvqtv8196 [place] [address]Dr. Ivette Hernandez Platelet mean volume (Bld) [Entitic vol] 9.7 fL Normal 9.5-13.5 [facility] Comment on above: Performed By: #### C BC ####[facility] Mytradeuhf7057 [place] [address]Dr. Ivette Hernandez PLT 139 103/ul Critically low 150-450 [facility] Comment on above: Performed By: #### C BC ####[facility] Oyhionqbbt9198 [place] [phone]. Ivette Hernandez RBC 2.72 106/ul Critically low 4.20-5.40 [facility] Comment on above: Performed By: #### C BC ####[facility] Ikmkzqzehr7146 [place] [id number]. Ivette Hernandez WBC 5.8 103/ul Normal 4.0-11.0 [facility] Comment on above: Performed By: #### C BC ####[facility] Epaanzwwha8158 [place] [phone]. Ivette Hernandez IRON AND TIBCon 04-11-2022 % SATURATION 10.4 % Normal [facility] Comment on above: Performed By: #### B 12FOL, FETIBC ####[facility] Mzbcttwvql5799 [place] [address]Dr. Ivette Hernandez Iron [Mass/Vol] 19.0 ug/dL Critically low 50.0-170.0 [facility] Comment on above: Performed By: #### B 12FOL, FETIBC ####[facility] Oetxxwojao8481 [place] [address]Dr. Ivette Hernandez TIBC DIRECT 182.0 ug/dL Critically low 250.0-450.0 [facility] Comment on above: Performed By: #### B 12FORoxie FETIBC ####[facility] Cxeixxkkxz1190 [place] [address]Dr. Ivette Hernandez POINT OF CARE GLUCOSEon 04-02 Glucose [Mass/Vol] 124 mg/dL Critically high -106 [facility] Comment on above: Performed By: #### P OCGLUC ####[facility] Sbunnlnkar3717 [place] [address]Dr. Ivette Hernandez Glucose [Mass/Vol] 128 mg/dL Critically high -106 [facility] Comment on above: Performed By: #### P OCGLUC ####[facility] Biymdaswwr9541 [place] [address]Dr. Ivette Hernandez Glucose [Mass/Vol] 144 mg/dL Critically high -106 [facility] Comment on above: Performed By: #### P OCGLUC ####[facility] Gfmoahfadp2136 [place] [address]Dr. Ivette Hernandez PROF CHEM 8 (BAS METB)on Anion gap [Moles/Vol] 9.7 mmol/L Normal [facility] Comment on above: Performed By: #### B MP ####[facility] Nqruhzzkfp7869 [place] [address]Dr. Ivette Hernandez Calcium [Mass/Vol] 6.9 mg/dL Critically low 8.5-10.1 [facility] Comment on above: Performed By: #### B MP ####[facility] Zfsmzeqabn5541 [place] [id number]. Ivette Hernandez Chloride [Moles/Vol] 109 mmol/L Critically high 98-107 [facility] Comment on above: Performed By: #### B MP ####[facility] Acqyjzeptw8606 [place] [phone]. Ivette Hernandez CO2 [Moles/Vol] 29.2 mmol/L Normal 21.0-32.0 [facility] Comment on above: Performed By: #### B MP ####[facility] Uqaasdktvs7311 [place] [id number]. Ivette Hernandez Creatinine [Mass/Vol] 1.41 mg/dL Critically high 0.55-1.02 [facility] Comment on above: Performed By: #### B MP ####[facility] Ogezmadqwk8[address] [place], [place] [address]Dr. Cherjun David EGFR-AF ANGUILLAN 44 mL/min/1.73m2 Critically low >=60 [facility] Comment on above: Performed By: #### B MP ####[facility] Mpzqzsnmhs[address] [place], [place] [address]Dr. Ivette Hernandez EGFR-NON AF ANGUILLAN 37 mL/min/1.73m2 Critically low >=60 [facility] Comment on above: Performed By: #### B MP ####[facility] Gklkyrcary04[address] [place], [place] [address]Dr. Ivette Hernandez Glucose [Mass/Vol] 95 mg/dL Normal 74-106 [facility] Comment on above: Performed By: #### B MP ####[facility] Zkdlrnvtpr[address] [place], [place] [address]Dr. Ivette Hernandez Potassium [Moles/Vol] 3.9 mmol/L Normal 3.5-5.1 [facility] Comment on above: Performed By: #### B MP ####[facility] Vykbtsolki[address] [place], [place] [address]Dr. Cherjun Hernandez Sodium [Moles/Vol] 144 mmol/L Normal 136-145 [facility] Comment on above: Performed By: #### B MP ####[facility] Fceibceypc9190 [place] [id number]. Ivette Hernandez Urea nitrogen [Mass/Vol] 25.0 mg/dL Critically high 7.0-18.0 [facility] Comment on above: Performed By: #### B MP ####[facility] Jilbmgtlsb3268 [place] [id number]. Cherjun David Urea nitrogen/Creatinine [Mass ratio] 17.7 mg/mg Normal [facility] Comment on above: Performed By: #### B MP ####[facility] Jwkkxsfebx8708 [place] [address]Dr. Ivette Hernandez VIT B12 AND FOLATEon 022 Cobalamin (Vitamin B12) [Mass/Vol] 769.0 pg/mL Normal 193.0-986.0 [facility] Comment on above: Performed By: #### B 12FOL, FETIBC ####[facility] Rgbbtxjhis6830 [place] [address]Dr. Ivette David FOLATE 22.60 ng/mL Normal 8.60-58.90 [facility] Comment on above: Performed By: #### B 12FOL, FETIBC ####[facility] Zgovkngbak7442 [place] [address]Dr. Cherjun Hernandez CARDIAC CANDACE 3-6on 2 CK [Catalytic activity/Vol] 38 U/L Normal 26-192 [facility] Comment on above: Performed By: #### C MREP ####[facility] Ilzknylpwi6019 [place] [address]Dr. Ivette David CK.MB [Mass/Vol] 0.75 ng/mL Normal <=3.60 [facility] Comment on above: Performed By: #### C MREP ####[facility] Uiztxecujo[address] [place], [place] [address]Dr. Ivette Hernandez HSTROP 11.9 pg/mL Normal 4.0-51.3 [facility] Comment on above: Result Comment: CUT- OFF POINTS HAVE BEEN ESTABLISHED BASED ON THE FOURTH UNIVERSAL DEFINITIONS OF MYOCARDIALINFARCTION. THE UPPER REFERENCE LIMIT (URL) OF TROPONIN, DEFINED THE 99TH PERCENTILE OFcTnI DISTRIBUTION IN A REFERENCE POPULATION, HAS BEEN CONFIRMED THE DECISION THRESHOLDFOR MD DIAGNOSIS. Performed By: #### C MREP ####[facility] Kyhgmejbbb9169 [place] [address]Dr. Ivette Hernandez CK [Catalytic activity/Vol] 38 U/L Normal 26-192 [facility] Comment on above: Performed By: #### C MREP ####[facility] Qyufovlmuf0240 [place] [address]Dr. Ivette Hernandez CK.MB [Mass/Vol] 0.11 ng/mL Normal <=3.60 [facility] Comment on above: Performed By: #### C MREP ####[facility] Tfjnoccizs[address] [place], [place] [address]Dr. Ivette Hernandez HSTROP 11.5 pg/mL Normal 4.0-51.3 [facility] Comment on above: Result Comment: CUT- OFF POINTS HAVE BEEN ESTABLISHED BASED ON THE FOURTH UNIVERSAL DEFINITIONS OF MYOCARDIALINFARCTION. THE UPPER REFERENCE LIMIT (URL) OF TROPONIN, DEFINED THE 99TH PERCENTILE OFcTnI DISTRIBUTION IN A REFERENCE POPULATION, HAS BEEN CONFIRMED THE DECISION THRESHOLDFOR MD DIAGNOSIS. Performed By: #### C MREP ####[facility] Azzfmcitoi7549 [place] [address]Dr. Ivette Hernandez CBC AUTO DIFFon 04-10-2022 BASO # 0.0 103/ul Normal 0.0-0.1 [facility] Comment on above: Performed By: #### C BC ####[facility] Zfhaesxgbj20[address] [place] [address]Dr. Ivette Hernandez Basophils/100 WBC (Bld) 0.3 % Normal 0.2-2.0 [facility] Comment on above: Performed By: #### C BC ####[facility] Fqtvnfdvbl7976 [place] [address]DrJesse Hernandez EO # 0.1 103/ul Normal 0.0-0.7 [facility] Comment on above: Performed By: #### C BC ####[facility] Wvycjqllxj4561 [place] [address]DrJesse Hernandez Eosinophils/100 WBC (Bld) 0.9 % Normal 0.9-7.0 [facility] Comment on above: Performed By: #### C BC ####[facility] Ltnfhygbbi3434 [place] [address]Dr. Ivette Hernandez Erythrocyte distribution width (RBC) [Ratio] 14.5 % Normal 11.0-15.0 [facility] Comment on above: Performed By: #### C BC ####[facility] Mwnrvjrhpm[address] [place], [place] [address]Dr. Ivette Hernandez Hematocrit (Bld) [Volume fraction] 26.1 % Critically low 36.0-48.0 [facility] Comment on above: Performed By: #### C BC ####[facility] Iogkdonvqf94[address] [place], [place] [address]Dr. Ivette Hernandez Hemoglobin (Bld) [Mass/Vol] 8.0 g/dL Critically low 12.0-16.0 [facility] Comment on above: Performed By: #### C BC ####[facility] Azylzeurqg96[address] [place], [place] [address]Dr. Ivette Hernandez IG # 0.03 10e3/ul Normal 0.00-0.03 [facility] Comment on above: Performed By: #### C BC ####[facility] Xhstgsqzpk[address] [place], [place] [address]Dr. Ivette Hernandez IG % 0.4 % Normal 0.0-0.5 [facility] Comment on above: Performed By: #### C BC ####[facility] Otsdglcbfm7[address] [place], [place] [address]Dr. Ivette Hernandez LYMPH # 2.2 103/ul Normal 1.2-3.8 [facility] Comment on above: Performed By: #### C BC ####[facility] Ksqljaafjy82[address] [place], [place] [address]Dr. Ivette Hernandez Lymphocytes/100 WBC (Bld) 29.3 % Normal 20.5-60.0 [facility] Comment on above: Performed By: #### C BC ####[facility] Lshmxbsbwi964[address] [place], [place] [address]Dr. Ivette Hernandez MANUAL DIFF REQ NO Normal [facility] Comment on above: Performed By: #### C BC ####[facility] Dmxomhuxmm2875 [place] [address]Dr. Ivette David MCH (RBC) [Entitic mass] 28.4 pg Normal 26.7-34.0 [facility] Comment on above: Performed By: #### C BC ####[facility] Syvhjgvdee[address] [place], [place] [address]Dr. Cherjun David MCHC (RBC) [Mass/Vol] 30.7 g/dL Normal 29.9-35.2 [facility] Comment on above: Performed By: #### C BC ####[facility] Fnszspduzf9[address] [place], [place] [address]Dr. Ivette Hernandez MCV (RBC) [Entitic vol] 92.6 fL Normal 81.0-99.0 [facility] Comment on above: Performed By: #### C BC ####[facility] Krktracszt37[address] [place], [place] [address]Dr. Ivette Hernandez MONO # 0.6 103/ul Normal 0.3-0.8 [facility] Comment on above: Performed By: #### C BC ####[facility] Kiwfyuvwsy[address] [place], [place] [address]Dr. Ivette Hernandez Monocytes/100 WBC (Bld) 8.7 % Normal 1.7-12.0 [facility] Comment on above: Performed By: #### C BC ####[facility] Jhvkjqnxpc[address] [place], [place] [address]DrJesse Hernandez NEUT # 4.5 103/ul Normal 1.4-6.5 [facility] Comment on above: Performed By: #### C BC ####[facility] Ijwxlqipil[address] [place], [place] [address]DrJesse Hernandez Neutrophils/100 WBC (Bld) 60.4 % Normal 43.0-75.0 [facility] Comment on above: Performed By: #### C BC ####[facility] Vezqfymrkb3964[address] [place], [place] [address]Dr. Ivette Hernandez Platelet mean volume (Bld) [Entitic vol] 9.8 fL Normal 9.5-13.5 [facility] Comment on above: Performed By: #### C BC ####[facility] Fulvidgxgq3651 [place] [id number]. Ivette Hernandez PLT 139 103/ul Critically low 150-450 [facility] Comment on above: Performed By: #### C BC ####[facility] Srsrugjora4014 [place] [id number]. Ivette Hernandez RBC 2.82 106/ul Critically low 4.20-5.40 [facility] Comment on above: Performed By: #### C BC ####[facility] Mjjtjljocs9177 [place] [address]Dr. Ivette Hernandez WBC 7.4 103/ul Normal 4.0-11.0 [facility] Comment on above: Performed By: #### C BC ####[facility] Jkbxtvqckv4970 [place] [address]Dr. Ivette Hernandez CULTURE BLOODon 04-10-2022 Microscopic examination of blood, culture Culture Observations: NO GROWTH AT 5 DAYS. Normal [facility] Comment on above: Performed By: #### B LDCX2 ####[facility] Nucslndeiu2448 [place] [id number]. Ivette Hernandez Microscopic examination of blood, culture Culture Observations: NO GROWTH AT 5 DAYS. Normal [facility] Comment on above: Performed By: #### B LDCX1 ####[facility] Rhbkritbqz2834 [place] [address]Dr. Ivette Hernandez Covid-19 PCR (CVDTB)on SARS-CoV-2 (COVID-19) RNA MARRY+probe Ql (Unsp spec) Not detected Normal NOT DETECTED [facility] Comment on above: Result Comment: When [...] for this test is supported by the [employer] of Health and Human Service's declaration that [...] be used). Performed By: #### C VDTB ####[facility] Qhxcedefmt68[address] [place], [place] [address]Dr. Ivette Hernandez ER URINE PROFILEon 2 Bilirubin Ql (U) Negative Normal NEGATIVE [facility] Comment on above: Performed By: #### Ata RONDON UMICRO ####[facility] Xrrdthkgwa88[address] [place], [place] [address]Dr. Ivette Hernandez Clarity (U) CLEAR Normal CLEAR [facility] Comment on above: Performed By: #### Ata RONDON UMICRO ####[facility] Cvrvctemsd18[address] [place], [place] [address]Dr. Ivette Hernandez Color (U) YELLOW Normal YELLOW [facility] Comment on above: Performed By: #### Ata RONDON UMICRO ####[facility] Pybgkyijmw[address] [place], [place] [address]Dr. Ivette Hernandez ERUAHD A micrscopic examina tion will be performed if indicated. Normal [facility] Comment on above: Performed By: #### Ata RONDON UMICRO ####[facility] Wnjzfmzsfw96[address] [place], [place] [address]Dr. Ivette Hernandez Glucose Ql (U) Negative Normal NEGATIVE [facility] Comment on above: Performed By: #### Ata RONDON UMICRO ####[facility] Mbycyyekxb228[address] [place], [place] [address]Dr. Ivette Hernandez Hemoglobin Ql (U) MODERATE Abnormal NEGATIVE [facility] Comment on above: Performed By: #### SONNY MCKOY ####[facility] Zwhcrqibdx9441 [place] [address]Dr. Ivette Hernandez Ketones Ql (U) TRACE Abnormal NEGATIVE [facility] Comment on above: Performed By: #### SONNY MCKOY ####[facility] Msgowxablo2626 [place] [address]Dr. Ivette Hernandez LEUKOCYTES MODERATE Abnormal NEGATIVE [facility] Comment on above: Performed By: #### SONNY MCKOY ####[facility] Piyedhnmxw8356 [place] [address]Dr. Ivette Hernandez Nitrite Ql (U) Negative Normal NEGATIVE [facility] Comment on above: Performed By: #### SONNY MCKOY ####[facility] Mdprecmbae[address] [place], [place] [address]Dr. Ivette Hernandez pH (U) 7.0 [pH] Normal 5-9 [facility] Comment on above: Performed By: #### SONNY MCKOY ####[facility] Fuhlsabcvf[address] [place], [place] [address]Dr. Ivette Hernandez SPEC GRAVITY 1.020 Normal 1.005-<=1.0 25 [facility] Comment on above: Performed By: #### SONNY MCKOY ####[facility] Klhzlsyuls[address] [place], [place] [address]Dr. Ivette Hernandez UA PROTEIN >300 Abnormal NEGATIVE/ TRACE [facility] Comment on above: Performed By: #### SONNY MCKOY ####[facility] Wpvscwanog9[address] [place], [place] [address]Dr. Ivette Hernandez UR MICRO IND INDICATED Normal [facility] Comment on above: Performed By: #### SONNY MCKOY ####[facility] Mxlkcohcvw9[address] [place], [place] [address]Dr. Ivette Hernandez Urobilinogen Qn (U) 0.2 {Mack'U}/dL Normal 0.2 - 1. 0 [facility] Comment on above: Performed By: #### SONNY MCKOY ####[facility] Goxmlyhyzt1590 [place] [address]Dr. Ivette David POINT OF CARE GLUCOSEon Glucose [Mass/Vol] 164 mg/dL Critically high 74-106 [facility] Comment on above: Performed By: #### P OCGLUC ####[facility] Ymaoptbdny5036 [place] [address]Dr. Ivette Hernandez Glucose [Mass/Vol] 123 mg/dL Critically high 74-106 [facility] Comment on above: Performed By: #### P OCGLUC ####[facility] Kmdmnvspnv[address] [place], [place] [address]Dr. Ivette Hernandez Glucose [Mass/Vol] 115 mg/dL Critically high 74-106 [facility] Comment on above: Performed By: #### P OCGLUC ####[facility] Lcizsommas[address] [place], [place] [address]Dr. Ivette Hernandez PROF CHEM 8 (BAS METB)on Anion gap [Moles/Vol] 11.8 mmol/L Normal [facility] Comment on above: Performed By: #### B MP ####[facility] Bgdvoaxeid8[address] [place], [place] [address]Dr. Ivette Hernandez Calcium [Mass/Vol] 6.5 mg/dL Critically low 8.5-10.1 [facility] Comment on above: Performed By: #### B MP ####[facility] Spijcrzrfy[address] [place], [place] [address]Dr. Ivette Hernandez Chloride [Moles/Vol] 108 mmol/L Critically high 98-107 [facility] Comment on above: Performed By: #### B MP ####[facility] Tucxxxkjlg12[address] [place], [place] [address]Dr. Ivette Hernandez CO2 [Moles/Vol] 29.2 mmol/L Normal 21.0-32.0 [facility] Comment on above: Performed By: #### B MP ####[facility] Kunpatqcbh[address] [place], [place] [address]Dr. Ivette Hernandez Creatinine [Mass/Vol] 1.61 mg/dL Critically high 0.55-1.02 [facility] Comment on above: Performed By: #### B MP ####[facility] Youxpshokm1882 [place] [id number]. Ivette Hernandez EGFR-AF ANGUILLAN 38 mL/min/1.73m2 Critically low >=60 [facility] Comment on above: Performed By: #### B MP ####[facility] Sehznalfxt9123 [place] [id number]. Ivette David EGFR-NON AF ANGUILLAN 31 mL/min/1.73m2 Critically low >=60 [facility] Comment on above: Performed By: #### B MP ####[facility] Roqmxupwfw7100 [place] [id number]. Cherjun David Glucose [Mass/Vol] 107 mg/dL Critically high 74-106 [facility] Comment on above: Performed By: #### B MP ####[facility] Izjfnovdbi2297 [place] [id number]. Ivette Hernandez Potassium [Moles/Vol] 4.0 mmol/L Normal 3.5-5.1 [facility] Comment on above: Performed By: #### B MP ####[facility] Bcqionncmk9158 [place] [id number]. Ivette Hernandez Sodium [Moles/Vol] 145 mmol/L Normal 136-145 [facility] Comment on above: Performed By: #### B MP ####[facility] Hhekcawuwb7941 [place] [id number]. Ivette Hernandez Urea nitrogen [Mass/Vol] 23.0 mg/dL Critically high 7.0-18.0 [facility] Comment on above: Performed By: #### B MP ####[facility] Mgkviosigp7873 [place] [id number]. Ievtte Hernandez Urea nitrogen/Creatinine [Mass ratio] 14.3 mg/mg Normal [facility] Comment on above: Performed By: #### B MP ####[facility] Kfpyqdkmau1811 [place] [id number]. Ivette Hernandez URINE MICROSCOPIC ONLYon BACTERIA MODERATE Abnormal NONE SEEN [facility] Comment on above: Performed By: #### FIDENCIO MCKOYRO ####[facility] Oqcnknyxtq1576 [place] [address]Dr. Ivette Hernandez Bacteria identified Cx Nom (U) INDICATED Normal [facility] Comment on above: Performed By: #### FIDENCIO MCKOYRO ####[facility] Iheickxpjy6010 [place] [address]Dr. Ivette Hernandez CAST NONE SEEN Normal NONE SEEN [facility] Comment on above: Performed By: #### Ata RONDON UMICRO ####[facility] Btntqttzdf4630 [place] [address]Dr. Ivette Hernandez Crystals LM Nom (Urine sed) NONE SEEN Normal NONE SEEN [facility] Comment on above: Performed By: #### FIDENCIO MCKOYRO ####[facility] Ebzqdfvukv9024 [place] [address]Dr. Ivette Hernandez Epithelial cells LM Ql (Urine sed) RARE Normal NONE SEEN /RARE [facility] Comment on above: Performed By: #### Ata RONDON UMICRO ####[facility] Jbxswsgovj85[address] [place], [place] [address]Dr. Ivette Hernandez MUCOUS NONE SEEN Normal NONE SEEN [facility] Comment on above: Performed By: #### FIDENCIO MCKOYRO ####[facility] Frsaprvsba[address] [place], [place] [address]Dr. Ivette Hernandez RBC NONE SEEN Abnormal 0-2 [facility] Comment on above: Performed By: #### FIDENCIO MCKYORO ####[facility] Cwtscmspvk[address] [place], [place] [address]Dr. Ivette Hernandez WBC 20-50 Abnormal NONE SEEN [facility] Comment on above: Performed By: #### FIDENCIO MCKOYRO ####[facility] Gioigkoall[address] [place], [place] [address]Dr. Ivette Hernandez XR CHEST 1 Von 04-10-2022 XR CHEST 1 V Normal [facility] CARDIAC CANDACE ADMITon 022 CK [Catalytic activity/Vol] 37 U/L Normal 26-192 [facility] Comment on above: Performed By: #### C BENJYM, BMP ####[facility] Ciwxbjvloc0253 [place] [id number]. Ivette Hernandez CK.MB [Mass/Vol] 0.14 ng/mL Normal <=3.60 [facility] Comment on above: Performed By: #### C BENJYM, BMP ####[facility] Zhqxjxofds3361 [place] [id number]. Ivette David HSTROP 11.0 pg/mL Normal 4.0-51.3 [facility] Comment on above: Result Comment: CUT- OFF POINTS HAVE BEEN ESTABLISHED BASED ON THE FOURTH UNIVERSAL DEFINITIONS OF MYOCARDIALINFARCTION. THE UPPER REFERENCE LIMIT (URL) OF TROPONIN, DEFINED THE 99TH PERCENTILE OFcTnI DISTRIBUTION IN A REFERENCE POPULATION, HAS BEEN CONFIRMED THE DECISION THRESHOLDFOR MD DIAGNOSIS. Performed By: #### C RODDY, BMP ####[facility] Loieqholno6776 [place] [id number]. Cherjun Hernandez CARMITA 1 ng/mL Critically low 9-82 [facility] Comment on above: Performed By: #### C RODDY, BMP ####[facility] Azuvdbawqx4651 [place] [id number]. Ivette David CBC AUTO DIFFon 04-09-2022 BASO # 0.0 103/ul Normal 0.0-0.1 [facility] Comment on above: Performed By: #### C BC ####[facility] Lwxtmkofac8282 [place] [address]Dr. Cherjun Hernandez Basophils/100 WBC (Bld) 0.2 % Normal 0.2-2.0 [facility] Comment on above: Performed By: #### C BC ####[facility] Oqewiupyvh7431 [place] [id number]. Cherjun Hernandez EO # 0.0 103/ul Normal 0.0-0.7 [facility] Comment on above: Performed By: #### C BC ####[facility] Ninjzzncmd0812 [place] [id number]. Ivette Hernandez Eosinophils/100 WBC (Bld) 0.5 % Critically low 0.9-7.0 [facility] Comment on above: Performed By: #### C BC ####[facility] Frixfynpgj7985 [place] [address]Dr. Ivette Hernandez Erythrocyte distribution width (RBC) [Ratio] 14.6 % Normal 11.0-15.0 [facility] Comment on above: Performed By: #### C BC ####[facility] Kjngzvfrne3372 [place] [address]Dr. Ivette Hernandez Hematocrit (Bld) [Volume fraction] 27.0 % Critically low 36.0-48.0 [facility] Comment on above: Performed By: #### C BC ####[facility] Xjkrhernnh66[address] [place], [place] [address]Dr. Ivette Hernandez Hemoglobin (Bld) [Mass/Vol] 8.5 g/dL Critically low 12.0-16.0 [facility] Comment on above: Performed By: #### C BC ####[facility] Qspigwwnxb[address] [place], [place] [address]Dr. Ivette Hernandez IG # 0.02 10e3/ul Normal 0.00-0.03 [facility] Comment on above: Performed By: #### C BC ####[facility] Mmbesektqd50[address] [place], [place] [address]Dr. Ivette Hernandez IG % 0.2 % Normal 0.0-0.5 [facility] Comment on above: Performed By: #### C BC ####[facility] Lvxwlbjwxi[address] [place], [place] [address]DrJesse Ivette Hernandez LYMPH # 1.4 103/ul Normal 1.2-3.8 [facility] Comment on above: Performed By: #### C BC ####[facility] Rlijmezcuw[address] [place], [place] [address]DrJesse Ivette Hernandez Lymphocytes/100 WBC (Bld) 17.2 % Critically low 20.5-60.0 [facility] Comment on above: Performed By: #### C BC ####[facility] [address]zpcyhwzvd[address] [place], [place] [address]Dr. Ivette David MANUAL DIFF REQ NO Normal [facility] Comment on above: Performed By: #### C BC ####[facility] Byfzbcfgdc4284 [place] [id number]. Ivette David MCH (RBC) [Entitic mass] 28.7 pg Normal 26.7-34.0 [facility] Comment on above: Performed By: #### C BC ####[facility] Nwmcxyfoas1342 [place] [phone]. Cherjun David MCHC (RBC) [Mass/Vol] 31.5 g/dL Normal 29.9-35.2 [facility] Comment on above: Performed By: #### C BC ####[facility] Aotrvtupyw9056 [place] [address]Dr. Ivette Hernandez MCV (RBC) [Entitic vol] 91.2 fL Normal 81.0-99.0 [facility] Comment on above: Performed By: #### C BC ####[facility] Mwzqpiobic[address] [place], [place] [address]Dr. Ivette Hernandez MONO # 0.5 103/ul Normal 0.3-0.8 [facility] Comment on above: Performed By: #### C BC ####[facility] Gqogrharnb[address] [place], [place] [address]Dr. Ivette Hernandez Monocytes/100 WBC (Bld) 6.5 % Normal 1.7-12.0 [facility] Comment on above: Performed By: #### C BC ####[facility] Glvpqmrnjr[address] [place], [place] [address]Dr. Ivette Hernandez NEUT # 6.3 103/ul Normal 1.4-6.5 [facility] Comment on above: Performed By: #### C BC ####[facility] S[address]swcrkwxb[address] [place], [place] [address]DrJesse Hernandez Neutrophils/100 WBC (Bld) 75.4 % Critically high 43.0-75.0 [facility] Comment on above: Performed By: #### C BC ####[facility] Dlaakcrstb[address] [place], [place] [address]DrJesse Hernandez Platelet mean volume (Bld) [Entitic vol] 9.8 fL Normal 9.5-13.5 [facility] Comment on above: Performed By: #### C BC ####[facility] Kqlcsrzzfu3578 [place] [address]Dr. Ivette Hernandez PLT 158 103/ul Normal 150-450 [facility] Comment on above: Performed By: #### C BC ####[facility] Fpxyoklfaq2772 [place] [address]Dr. Cherjun David RBC 2.96 106/ul Critically low 4.20-5.40 [facility] Comment on above: Performed By: #### C BC ####[facility] Qblqicujkr1710 [place] [address]Dr. Ivette David WBC 8.4 103/ul Normal 4.0-11.0 [facility] Comment on above: Performed By: #### C BC ####[facility] Bquijwnxli2169 [place] [address]Dr. Ivette Hernandez LACTATE/LACTIC ACIDon 2021 Lactate [Moles/Vol] 0.9 mmol/L Normal 0.4-1.9 [facility] Comment on above: Performed By: #### L ACT ####[facility] Xkuatnjxwu11[address] [place], [place] [address]Dr. Cherjun Hernandez PROF CHEM 8 (BAS METB)on Anion gap [Moles/Vol] 8.8 mmol/L Normal [facility] Comment on above: Performed By: #### C RODDY, BMP ####[facility] Lsxjhxfwmi1449 [place] [address]Dr. Ivette Hernandez Calcium [Mass/Vol] 6.9 mg/dL Critically low 8.5-10.1 [facility] Comment on above: Performed By: #### C RODDY BMP ####[facility] Negfdgypza8760 [place] [address]Dr. Ivette Hernandez Chloride [Moles/Vol] 105 mmol/L Normal 98-107 [facility] Comment on above: Performed By: #### C RODDY, BMP ####[facility] Gmpolxslil8971 [place] [address]Dr. Ivette Hernandez CO2 [Moles/Vol] 28.1 mmol/L Normal 21.0-32.0 [facility] Comment on above: Performed By: #### Daren PEREYRA, BMP ####[facility] Gpobhypeuq9673 [place] [address]Dr. Ivette Hernandez Creatinine [Mass/Vol] 1.77 mg/dL Critically high 0.55-1.02 [facility] Comment on above: Performed By: #### Daren PEREYRA, BMP ####[facility] [address]plhanfeph[address] [place], [place] [address]Dr. Ivette Hernandez EGFR-AF ANGUILLAN 34 mL/min/1.73m2 Critically low >=60 [facility] Comment on above: Performed By: #### Daren PEREYRA, BMP ####[facility] Xvbrogovvq[address] [place], [place] [address]Dr. Cherjun Hernandez EGFR-NON AF ANGUILLAN 28 mL/min/1.73m2 Critically low >=60 [facility] Comment on above: Performed By: #### Daren PEREYRA, BMP ####[facility] Rguguwlxtr[address] [place], [place] [address]Dr. Ivette Hernandez Glucose [Mass/Vol] 130 mg/dL Critically high 74-106 [facility] Comment on above: Performed By: #### Daren PEREYRA, BMP ####[facility] Dhoyuyyoir[address] [place], [place] [address]Dr. Ivette Hernandez Potassium [Moles/Vol] 3.9 mmol/L Normal 3.5-5.1 [facility] Comment on above: Performed By: #### Daren PEREYRA, BMP ####[facility] Pclmhcfkbw[address] [place], [place] [address]Dr. Ivette Hernandez Sodium [Moles/Vol] 138 mmol/L Normal 136-145 [facility] Comment on above: Performed By: #### C RODDY, BMP ####[facility] Djtwjvybnj[address] [place], [place] [address]Dr. Cherjun Hernandez Urea nitrogen [Mass/Vol] 25.0 mg/dL Critically high 7.0-18.0 [facility] Comment on above: Performed By: #### C MADM, BMP ####[facility] Dzdmakqxzl9911 [place] [address]Dr. Ivette Hernandez Urea nitrogen/Creatinine [Mass ratio] 14.1 mg/mg Normal [facility] Comment on above: Performed By: #### C MADM, BMP ####[facility] Rhwaxbagxr[address] [place], [place] [address]Dr. Ivette Hernandez AMMONIAon 03-10-2022 Ammonia (P) [Moles/Vol] 12 umol/L Normal [facility] Comment on above: Performed By: #### A MM ####[facility] Yiphhvgmvx[address] [place], [place] [address]Dr. Ivette Hernandez BNPon 03-10-2022 Natriuretic peptide B (Bld) [Mass/Vol] 9132.0 pg/mL Critically high <=900.0 [facility] Comment on above: Performed By: #### M G, CMP, PHOS, BNP ####[facility] Fvewozmhpe[address] [place], [place] [address]Dr. Ivette Hernandez CBC AUTO DIFFon 03-10-2022 BASO # 0.0 103/ul Normal 0.0-0.1 [facility] Comment on above: Performed By: #### C BC ####[facility] Eumvtmxzow7[address] [place], [place] [address]Dr. Ivette Hernandez Basophils/100 WBC (Bld) 0.3 % Normal 0.2-2.0 [facility] Comment on above: Performed By: #### C BC ####[facility] Jjicrqicmq[address] [place], [place] [address]Dr. Ivette Hernandez EO # 0.3 103/ul Normal 0.0-0.7 [facility] Comment on above: Performed By: #### C BC ####[facility] [facility] Srldotxhsf[address] [place], [place] [address]Dr. Ivette Hernandez Eosinophils/100 WBC (Bld) 3.2 % Normal 0.9-7.0 [facility] Comment on above: Performed By: #### C BC ####[facility] Movusswjgd[address] [place] [address]Dr. Ivette Hernandez Erythrocyte distribution width (RBC) [Ratio] 14.3 % Normal 11.0-15.0 [facility] Comment on above: Performed By: #### C BC ####[facility] Gkphyzhywc4[address] [place] [address]Dr. Ivette Hernandez Hematocrit (Bld) [Volume fraction] 25.5 % Critically low 36.0-48.0 [facility] Comment on above: Performed By: #### C BC ####[facility] Eqalcjruhu[address] [place], [place] [address]Dr. Ivette Hernandez Hemoglobin (Bld) [Mass/Vol] 8.0 g/dL Critically low 12.0-16.0 [facility] Comment on above: Performed By: #### C BC ####[facility] Oelwgvqiwx[address] [place], [place] [address]Dr. Ivette Hernandez IG # 0.05 10e3/ul Critically high 0.00-0.03 [facility] Comment on above: Performed By: #### C BC ####[facility] Pxjqdqnaib[address] [place], [place] [address]Dr. Ivette Hernandez IG % 0.6 % Critically high 0.0-0.5 [facility] Comment on above: Performed By: #### C BC ####[facility] Fqdybgthcr[address] [place], [place] [address]Dr. Ivette Hernandez LYMPH # 1.9 103/ul Normal 1.2-3.8 [facility] Comment on above: Performed By: #### C BC ####[facility] Zptvpjhnvw[address] [place], [place] [address]Dr. Ivette Hernandez Lymphocytes/100 WBC (Bld) 20.8 % Normal 20.5-60.0 [facility] Comment on above: Performed By: #### C BC ####[facility] Evyqwqahab[address] [place], [place] [address]Dr. Ivette Hernandez MANUAL DIFF REQ NO Normal [facility] Comment on above: Performed By: #### C BC ####[facility] Zjxntlhgua[address] [place] [id number]. Ivette Hernandez MCH (RBC) [Entitic mass] 28.7 pg Normal 26.7-34.0 [facility] Comment on above: Performed By: #### C BC ####[facility] Iyqgzizfqa2270 [place] [id number]. Ivette Hernandez MCHC (RBC) [Mass/Vol] 31.4 g/dL Normal 29.9-35.2 [facility] Comment on above: Performed By: #### C BC ####[facility] Ll[address]rd[address] [place], [place] [address]Dr. Ivette Hernandez MCV (RBC) [Entitic vol] 91.4 fL Normal 81.0-99.0 [facility] Comment on above: Performed By: #### C BC ####[facility] Gqugsgtvnx[address] [place], [place] [address]Dr. Ivette David MONO # 0.5 103/ul Normal 0.3-0.8 [facility] Comment on above: Performed By: #### C BC ####[facility] Hsetdufkkk[address] [place], [place] [address]Dr. Ivette David Monocytes/100 WBC (Bld) 5.6 % Normal 1.7-12.0 [facility] Comment on above: Performed By: #### C BC ####[facility] [address]lmu[address]zg[address] [place], [place] [address]Dr. Ivette Hernandez NEUT # 6.2 103/ul Normal 1.4-6.5 [facility] Comment on above: Performed By: #### C BC ####[facility] Rhtfbuifrq[address] [place], [place] [address]Dr. Ivette David Neutrophils/100 WBC (Bld) 69.5 % Normal 43.0-75.0 [facility] Comment on above: Performed By: #### C BC ####[facility] Bhlwvymlnk[address] [place], [place] [address]Dr. Ivette David Platelet mean volume (Bld) [Entitic vol] 9.3 fL Critically low 9.5-13.5 [facility] Comment on above: Performed By: #### C BC ####[facility] Ekolxtajlf[address] [place] [id number]. Ivette Hernandez PLT 213 103/ul Normal 150-450 [facility] Comment on above: Performed By: #### C BC ####[facility] Mqcffimlhh4178 [place] [id number]. Ivette Hernandez RBC 2.79 106/ul Critically low 4.20-5.40 [facility] Comment on above: Performed By: #### C BC ####[facility] Zloaqumwls5[address] [place] [id number]. Ivette Hernandez WBC 8.9 103/ul Normal 4.0-11.0 [facility] Comment on above: Performed By: #### C BC ####[facility] Quxvqvsrqz4[address] [place] [address]Dr. Ivette Hernandez MAGNESIUMon 03-10-2022 Magnesium [Mass/Vol] 1.9 mg/dL Normal 1.8-2.4 [facility] Comment on above: Performed By: #### M G, CMP, PHOS, BNP ####[facility] Mxzbipgrnc225[address] [place] [address]Dr. Ivette Hernandez PHOSPHORUSon 03-10-2022 Phosphate [Mass/Vol] 3.8 mg/dL Normal 2.6-4.7 [facility] Comment on above: Performed By: #### M G, CMP, PHOS, BNP ####[facility] Bdnqrbcjbf4543 [place] [address]Dr. Ivette Hernandez PROF 14(COMP METB)on 022 Albumin [Mass/Vol] 2.3 g/dL Critically low 3.4-5.0 [facility] Comment on above: Performed By: #### M G, CMP, PHOS, BNP ####[facility] Pnzlxzrovs14[address] [place] [address]Dr. Ivette Hernandez Albumin/Globulin [Mass ratio] 0.6 {ratio} Normal [facility] Comment on above: Performed By: #### M G, CMP, PHOS, BNP ####[facility] Dtjrqnrqkz6142 [place] [address]Dr. Ivette Hernandez ALP [Catalytic activity/Vol] 64 U/L Normal 46-116 [facility] Comment on above: Performed By: #### M G, CMP, PHOS, BNP ####[facility] Hrzgjueuvu99[address] [place] [address]Dr. Ivette Hernandez ALT [Catalytic activity/Vol] 14 U/L Normal 14-59 [facility] Comment on above: Performed By: #### M G, CMP, PHOS, BNP ####[facility] Oaaqsnevpi[address] [place], [place] [address]Dr. Ivette Hernandez Anion gap [Moles/Vol] 3.4 mmol/L Normal [facility] Comment on above: Performed By: #### M G, CMP, PHOS, BNP ####[facility] Hzelaagjtc[address] [place], [place] [address]Dr. Ivette Hernandez AST [Catalytic activity/Vol] 20 U/L Normal 15-37 [facility] Comment on above: Performed By: #### M G, CMP, PHOS, BNP ####[facility] Fgzadznqvv72[address] [place], [place] [address]Dr. Ivette Hernandez Bilirubin [Mass/Vol] 0.3 mg/dL Normal 0.2-1.0 [facility] Comment on above: Performed By: #### M G, CMP, PHOS, BNP ####[facility] Otrwzjfhth[address] [place], [place] [address]Dr. Ivette Hernandez Calcium [Mass/Vol] 8.3 mg/dL Critically low 8.5-10.1 [facility] Comment on above: Performed By: #### M G, CMP, PHOS, BNP ####[facility] Towcezqjim[address] [place], [place] [address]Dr. Ivette Hernandez Chloride [Moles/Vol] 100 mmol/L Normal 98-107 [facility] Comment on above: Performed By: #### M G, CMP, PHOS, BNP ####[facility] Ejqblialhp9866 [place] [address]Dr. Ivette Hernandez CO2 [Moles/Vol] 38.3 mmol/L Critically high 21.0-32.0 [facility] Comment on above: Performed By: #### M G, CMP, PHOS, BNP ####[facility] Zwepwagwbu4[address] [place] [address]Dr. Ivette Hernandez Creatinine [Mass/Vol] 1.50 mg/dL Critically high 0.55-1.02 [facility] Comment on above: Performed By: #### M G, CMP, PHOS, BNP ####[facility] Kdhvcjchjn79[address] [place] [address]Dr. Ivette Hernandez EGFR-AF ANGUILLAN 41 mL/min/1.73m2 Critically low >=60 [facility] Comment on above: Performed By: #### M G, CMP, PHOS, BNP ####[facility] Enyngngsmj[address] [place], [place] [address]Dr. Ivette Hernandez EGFR-NON AF ANGUILLAN 34 mL/min/1.73m2 Critically low >=60 [facility] Comment on above: Performed By: #### M G, CMP, PHOS, BNP ####[facility] Wkpybmxloq[address] [place], [place] [address]Dr. Ivette Hernandez Globulin (S) [Mass/Vol] 4.1 g/dL Normal [facility] Comment on above: Performed By: #### M G, CMP, PHOS, BNP ####[facility] Frotelqiww4[address] [place] [address]Dr. Ivette Hernandez Glucose [Mass/Vol] 114 mg/dL Critically high 74-106 [facility] Comment on above: Performed By: #### M G, CMP, PHOS, BNP ####[facility] Izysdqictu9377 [place] [address]Dr. Ivette Hernandez Potassium [Moles/Vol] 3.7 mmol/L Normal 3.5-5.1 [facility] Comment on above: Performed By: #### M G, CMP, PHOS, BNP ####[facility] Rnqofapywo4894 [place] [address]Dr. Ivette Hernandez Protein [Mass/Vol] 6.4 g/dL Normal 6.4-8.2 [facility] Comment on above: Performed By: #### M G, CMP, PHOS, BNP ####[facility] Flyfpuxwdw3626 [place] [address]Dr. Ivette Hernandez Sodium [Moles/Vol] 138 mmol/L Normal 136-145 [facility] Comment on above: Performed By: #### M G, CMP, PHOS, BNP ####[facility] Oviedcqyqq92[address] [place] [address]Dr. Ivette Hernandez Urea nitrogen [Mass/Vol] 20.0 mg/dL Critically high 7.0-18.0 [facility] Comment on above: Performed By: #### M G, CMP, PHOS, BNP ####[facility] T[address]wnhzdres[address] [place], [place] [address]Dr. Ivette Hernandez Urea nitrogen/Creatinine [Mass ratio] 13.3 mg/mg Normal [facility] Comment on above: Performed By: #### M G, CMP, PHOS, BNP ####[facility] Sxb[address]jxgdcu[address] [place], [place] [address]Dr. Ivette Hernandez AMMONIAon 03-09-2022 Ammonia (P) [Moles/Vol] 15 umol/L Normal 11-32 [facility] Comment on above: Performed By: #### A MM ####[facility] Kkjmumvsms[address] [place], [place] [address]Dr. Ivette Hernandez BNPon 03-09-2022 Natriuretic peptide B (Bld) [Mass/Vol] 46994.0 pg/mL Critically high <=900.0 [facility] Comment on above: Performed By: #### B SOLE CUTTER, PHOS, MG, CMP ####[facility] Wisflngpei[address] [place], [place] [address]Dr. Ivette Hernandez CBC AUTO DIFFon 03-09-2022 BASO # 0.0 103/ul Normal 0.0-0.1 [facility] Comment on above: Performed By: #### C BC ####[facility] Hxkokqkiud[address] [place], [place] [address]Dr. Ivette Hernandez Basophils/100 WBC (Bld) 0.5 % Normal 0.2-2.0 [facility] Comment on above: Performed By: #### C BC ####[facility] Ggjutcwahd[address] [place] [address]Dr. Ivette Hernandez EO # 0.2 103/ul Normal 0.0-0.7 [facility] Comment on above: Performed By: #### C BC ####[facility] Vrwgqhmdlt98[address] [place] [address]Dr. Ivette Hernandez Eosinophils/100 WBC (Bld) 2.6 % Normal 0.9-7.0 [facility] Comment on above: Performed By: #### C BC ####[facility] Lljdciwgvb[address] [place], [place] [address]Dr. Ivette Hernandez Erythrocyte distribution width (RBC) [Ratio] 14.2 % Normal 11.0-15.0 [facility] Comment on above: Performed By: #### C BC ####[facility] [address]nqtymnmiy[address] [place], [place] [address]Dr. Ivette Hernandez Hematocrit (Bld) [Volume fraction] 26.7 % Critically low 36.0-48.0 [facility] Comment on above: Performed By: #### C BC ####[facility] T[address]qfou[address] [place], [place] [address]Dr. Ivette Hernandez Hemoglobin (Bld) [Mass/Vol] 8.3 g/dL Critically low 12.0-16.0 [facility] Comment on above: Performed By: #### C BC ####[facility] Wndqihpvvf[address] [place], [place] [address]Dr. Ivette Hernandez IG # 0.05 10e3/ul Critically high 0.00-0.03 [facility] Comment on above: Performed By: #### C BC ####[facility] Wtmomkkzpu[address] [place], [place] [address]Dr. Cherjun Hernandez IG % 0.7 % Critically high 0.0-0.5 [facility] Comment on above: Performed By: #### C BC ####[facility] Lahagrxzpc7[address] [place], [place] [address]DrJesse Hernandez LYMPH # 1.4 103/ul Normal 1.2-3.8 [facility] Comment on above: Performed By: #### C BC ####[facility] Ftocvtgdmj5[address] [place] [address]Dr. Ivette Hernandez Lymphocytes/100 WBC (Bld) 17.6 % Critically low 20.5-60.0 [facility] Comment on above: Performed By: #### C BC ####[facility] Qprhelygkx4164 [place] [address]Dr. Ivette Hernandez MANUAL DIFF REQ NO Normal [facility] Comment on above: Performed By: #### C BC ####[facility] Wvgfjgzpai6695 [place] [address]Dr. Ivette Hernandez MCH (RBC) [Entitic mass] 28.6 pg Normal 26.7-34.0 [facility] Comment on above: Performed By: #### C BC ####[facility] Ekfmborcvi[address] [place], [place] [address]Dr. Ivette Hernandez MCHC (RBC) [Mass/Vol] 31.1 g/dL Normal 29.9-35.2 [facility] Comment on above: Performed By: #### C BC ####[facility] Eqncdsscpx[address] [place], [place] [address]DrJesse Hernandez MCV (RBC) [Entitic vol] 92.1 fL Normal 81.0-99.0 [facility] Comment on above: Performed By: #### C BC ####[facility] Tv[address]vkbows[address] [place], [place] [address]Dr. Ivette Hernandez MONO # 0.5 103/ul Normal 0.3-0.8 [facility] Comment on above: Performed By: #### C BC ####[facility] Yaejdzfoef[address] [place], [place] [address]Dr. Ivette Hernandez Monocytes/100 WBC (Bld) 6.2 % Normal 1.7-12.0 [facility] Comment on above: Performed By: #### C BC ####[facility] Lzyusdrlvv[address] [place], [place] [address]DrJesse Hernandez NEUT # 5.6 103/ul Normal 1.4-6.5 [facility] Comment on above: Performed By: #### C BC ####[facility] Tzovxzyrjw39[address] [place] [address]Dr. Ivette Hernandez Neutrophils/100 WBC (Bld) 72.4 % Normal 43.0-75.0 [facility] Comment on above: Performed By: #### C BC ####[facility] Fcguicovvs8449 [place] [address]Dr. Ivette Hernandez Platelet mean volume (Bld) [Entitic vol] 9.6 fL Normal 9.5-13.5 [facility] Comment on above: Performed By: #### C BC ####[facility] Pimlnxrqwy[address] [place], [place] [address]Dr. Ivette Hernandez PLT 233 103/ul Normal 150-450 [facility] Comment on above: Performed By: #### C BC ####[facility] Nthkflqwpk8252 [place] [address]Dr. Ivette Hernandez RBC 2.90 106/ul Critically low 4.20-5.40 [facility] Comment on above: Performed By: #### C BC ####[facility] Ztinmdnefh[address] [place], [place] [address]Dr. Ivette Hernandez WBC 7.7 103/ul Normal 4.0-11.0 [facility] Comment on above: Performed By: #### C BC ####[facility] Nvrvwpgceq[address] [place], [place] [address]Dr. Ivette Hernandez BASO # 0.0 103/ul Normal 0.0-0.1 [facility] Comment on above: Performed By: #### C BC ####[facility] Lkvikhhwbh0380 [place] [id number]. Ivette Hernandez Basophils/100 WBC (Bld) 0.5 % Normal 0.2-2.0 [facility] Comment on above: Performed By: #### C BC ####[facility] Emzjhbzxkp[address] [place], [place] [address]Dr. Ivette Hernandez EO # 0.2 103/ul Normal 0.0-0.7 [facility] Comment on above: Performed By: #### C BC ####[facility] Krfhflhbnr0224 [place] [address]Dr. Ivette Hernandez Eosinophils/100 WBC (Bld) 2.8 % Normal 0.9-7.0 [facility] Comment on above: Performed By: #### C BC ####[facility] Mkdmxypuku5973 [place] [address]Dr. Ivette Hernandez Erythrocyte distribution width (RBC) [Ratio] 14.3 % Normal 11.0-15.0 [facility] Comment on above: Performed By: #### C BC ####[facility] Tvrfkrxdkc[address] [place], [place] [address]Dr. Ivette Hernandez Hematocrit (Bld) [Volume fraction] 25.2 % Critically low 36.0-48.0 [facility] Comment on above: Performed By: #### C BC ####[facility] X[address]xmfyxqwv[address] [place], [place] [address]Dr. Ivette Hernandez Hemoglobin (Bld) [Mass/Vol] 7.8 g/dL Critically low 12.0-16.0 [facility] Comment on above: Performed By: #### C BC ####[facility] Ggbkcnaceq[address] [place], [place] [address]Dr. Ivette Hernandez IG # 0.02 10e3/ul Normal 0.00-0.03 [facility] Comment on above: Performed By: #### C BC ####[facility] Azysisceyq[address] [place], [place] [address]Dr. Ivette Hernandez IG % 0.3 % Normal 0.0-0.5 [facility] Comment on above: Performed By: #### C BC ####[facility] Zh[address]cnfcmtb[address] [place], [place] [address]Dr. Ivette Hernandez LYMPH # 1.6 103/ul Normal 1.2-3.8 [facility] Comment on above: Performed By: #### C BC ####[facility] Klkeoknmuz[address] [place], [place] [address]Dr. Ivette Hernandez Lymphocytes/100 WBC (Bld) 24.5 % Normal 20.5-60.0 [facility] Comment on above: Performed By: #### C BC ####[facility] Ecrlkkypym32[address] [place] [address]Dr. Ivette Hernandez MANUAL DIFF REQ NO Normal [facility] Comment on above: Performed By: #### C BC ####[facility] Olxwirlybi5[address] [place] [id number]. Ivette Hernandez MCH (RBC) [Entitic mass] 28.4 pg Normal 26.7-34.0 [facility] Comment on above: Performed By: #### C BC ####[facility] Hzndbgmapx3365 [place] [address]Dr. Ivette Hernandez MCHC (RBC) [Mass/Vol] 31.0 g/dL Normal 29.9-35.2 [facility] Comment on above: Performed By: #### C BC ####[facility] Qzwrriwham[address] [place], [place] [address]Dr. Ivette Hernandez MCV (RBC) [Entitic vol] 91.6 fL Normal 81.0-99.0 [facility] Comment on above: Performed By: #### C BC ####[facility] Gctlwvnrpu[address] [place], [place] [address]Dr. Ivette Hernandez MONO # 0.5 103/ul Normal 0.3-0.8 [facility] Comment on above: Performed By: #### C BC ####[facility] Wxszqarbkf[address] [place], [place] [address]Dr. Ivette Hernandez Monocytes/100 WBC (Bld) 7.8 % Normal 1.7-12.0 [facility] Comment on above: Performed By: #### C BC ####[facility] V[address]iyptvfc[address] [place], [place] [address]Dr. Ivette Hernandez NEUT # 4.2 103/ul Normal 1.4-6.5 [facility] Comment on above: Performed By: #### C BC ####[facility] Ygtcarcywj[address] [place], [place] [address]Dr. Ivette Hernandez Neutrophils/100 WBC (Bld) 64.1 % Normal 43.0-75.0 [facility] Comment on above: Performed By: #### C BC ####[facility] Khfonequtp7364 [place] [address]Dr. Ivette Hernandez Platelet mean volume (Bld) [Entitic vol] 9.2 fL Critically low 9.5-13.5 [facility] Comment on above: Performed By: #### C BC ####[facility] Zisscvytzd79[address] [place] [address]Dr. Ivette Hernandez PLT 208 103/ul Normal 150-450 [facility] Comment on above: Performed By: #### C BC ####[facility] Cfnocfhksz7388 [place] [id number]. Ivette Hernandez RBC 2.75 106/ul Critically low 4.20-5.40 [facility] Comment on above: Performed By: #### C BC ####[facility] Vjogyhrdzg2221 [place] [address]DrJesse Ivette David WBC 6.5 103/ul Normal 4.0-11.0 [facility] Comment on above: Performed By: #### C BC ####[facility] Opjufueczk4982 [place] [address]DrJesse Ivette David MAGNESIUMon 03-09-2022 Magnesium [Mass/Vol] 1.7 mg/dL Critically low 1.8-2.4 [facility] Comment on above: Performed By: #### B SOLE CUTTER, PHOS, MG, CMP ####[facility] Fxrgcwtici4531 [place] [address]DrJesse Ivette Hernandez MRI BRAIN WO CONon 2 MRI BRAIN WO CON Normal [facility] PHOSPHORUSon 03-09-2022 Phosphate [Mass/Vol] 3.5 mg/dL Normal 2.6-4.7 [facility] Comment on above: Performed By: #### B SOLE CUTTER, PHOS, MG, CMP ####[facility] Yxdaobdvhr3806 [place] [address]DrJesse Hernandez PROF 14(COMP METB)on 022 Albumin [Mass/Vol] 2.3 g/dL Critically low 3.4-5.0 [facility] Comment on above: Performed By: #### B SOLE CUTTER, PHOS, MG, CMP ####[facility] Ftxfcmiimk6456 [place] [address]Dr. Ivette Hernandez Albumin/Globulin [Mass ratio] 0.6 {ratio} Normal [facility] Comment on above: Performed By: #### B SOLE CUTTER, PHOS, MG, CMP ####[facility] [address]nyigmze64[address] [place], [place] [address]Dr. Ivette Hernandez ALP [Catalytic activity/Vol] 58 U/L Normal 46-116 [facility] Comment on above: Performed By: #### B SOLE CUTTER, PHOS, MG, CMP ####[facility] U[address] [place] [address]. Ivette Hernandez ALT [Catalytic activity/Vol] 13 U/L Critically low 14-59 [facility] Comment on above: Performed By: #### B SOLE CUTTER, PHOS, MG, CMP ####[facility] Rruzavugqw[address] [place], [place] [address]Dr. Ivette Hernandez Anion gap [Moles/Vol] 5.6 mmol/L Normal [facility] Comment on above: Performed By: #### B SOLE CUTTER, PHOS, MG, CMP ####[facility] Mbzcicuabl[address] [place], [place] [address]Dr. Ivette Hernandez AST [Catalytic activity/Vol] 16 U/L Normal 15-37 [facility] Comment on above: Performed By: #### B SOLE CUTTER, PHOS, MG, CMP ####[facility] Zclweocwng[address] [place], [place] [address]Dr. Ivette Hernandez Bilirubin [Mass/Vol] 0.4 mg/dL Normal 0.2-1.0 [facility] Comment on above: Performed By: #### B SOLE CUTTER, PHOS, MG, CMP ####[facility] Bqetppmyqu7[address] [place], [place] [address]Dr. Ivette Hernandez Calcium [Mass/Vol] 7.9 mg/dL Critically low 8.5-10.1 [facility] Comment on above: Performed By: #### B SOLE CUTTER, PHOS, MG, CMP ####[facility] Hcypqbvztw8116 [place] [address]Dr. Ivette Hernandez Chloride [Moles/Vol] 99 mmol/L Normal 98-107 [facility] Comment on above: Performed By: #### B SOLE CUTTER, PHOS, MG, CMP ####[facility] Rwyzbtsbwv6833 [place] [address]Dr. Ivette Hernandez CO2 [Moles/Vol] 40.2 mmol/L Critically high 21.0-32.0 [facility] Comment on above: Performed By: #### B SOLE CUTTER, PHOS, MG, CMP ####[facility] Bhynrdrufn6162 [place] [address]Dr. Ivette Hernandez Creatinine [Mass/Vol] 1.47 mg/dL Critically high 0.55-1.02 [facility] Comment on above: Performed By: #### B SOLE CUTTER, PHOS, MG, CMP ####[facility] Hzswqkyvqx4308 [place] [address]Dr. Ivette Hernandez EGFR-AF ANGUILLAN 42 mL/min/1.73m2 Critically low >=60 [facility] Comment on above: Performed By: #### B SOLE CUTTER, PHOS, MG, CMP ####[facility] [address]rfqpiu[address] [place], [place] [address]Dr. Ivette Hernandez EGFR-NON AF ANGUILLAN 35 mL/min/1.73m2 Critically low >=60 [facility] Comment on above: Performed By: #### B SOLE CUTTER, PHOS, MG, CMP ####[facility] G[address]ldqstif[address] [place], [place] [address]Dr. Ivette Hernandez Globulin (S) [Mass/Vol] 4.0 g/dL Normal [facility] Comment on above: Performed By: #### B SOLE CUTTER, PHOS, MG, CMP ####[facility] Twuvvxshyz5950 [place] [address]Dr. Ivette Hernandez Glucose [Mass/Vol] 100 mg/dL Normal 74-106 [facility] Comment on above: Performed By: #### B SOLE CUTTER, PHOS, MG, CMP ####[facility] Segaybrsze[address] [place], [place] [address]Dr. Ivette Hernandez Potassium [Moles/Vol] 3.8 mmol/L Normal 3.5-5.1 [facility] Comment on above: Performed By: #### B SOLE CUTTER, PHOS, MG, CMP ####[facility] Bdtqnitfev[address] [place] [address]Dr. Ivette Hernandez Protein [Mass/Vol] 6.3 g/dL Critically low 6.4-8.2 Th [facility] Comment on above: Performed By: #### B SOLE CUTTER, PHOS, MG, CMP ####[facility] [address] [place] [address]Dr. Ivette Hernandez Sodium [Moles/Vol] 141 mmol/L Normal 136-145 [facility] Comment on above: Performed By: #### B SOLE CUTTER, PHOS, MG, CMP ####[facility] [address] [place] [address]Dr. Ivette Hernandez Urea nitrogen [Mass/Vol] 19.0 mg/dL Critically high 7.0-18.0 [facility] Comment on above: Performed By: #### B SOLE CUTTER, PHOS, MG, CMP ####[facility] Gcndq[address]jmj[address] [place] [address]Dr. Ivette Hernandez Urea nitrogen/Creatinine [Mass ratio] 12.9 mg/mg Normal [facility] Comment on above: Performed By: #### B SOLE CUTTER, PHOS, MG, CMP ####[facility] Wmcnjch[address] [place] [address]Dr. Ivette Hernandez BNPon 03-08-2022 Natriuretic peptide B (Bld) [Mass/Vol] 75861.0 pg/mL Critically high <=900.0 [facility] Comment on above: Performed By: #### B SOLE CUTTER, CMP, HSTROPN ####[facility] Nzmuwdqcuz[address] [place], [place] [address]Dr. Ivette Hernandez CBC AUTO DIFFon 03-08-2022 BASO # 0.0 103/ul Normal 0.0-0.1 [facility] Comment on above: Performed By: #### C BC ####[facility] [address]ks[address] [place] [id number]. Ivette Hernandez Basophils/100 WBC (Bld) 0.4 % Normal 0.2-2.0 [facility] Comment on above: Performed By: #### C BC ####[facility] [address] [place] [id number]. Ivette Hernandez EO # 0.3 103/ul Normal 0.0-0.7 [facility] Comment on above: Performed By: #### C BC ####[facility] [address] [place], [place] [address]Dr. Ivette Hernandez Eosinophils/100 WBC (Bld) 2.5 % Normal 0.9-7.0 [facility] Comment on above: Performed By: #### C BC ####[facility] Wmhbqf[address] [place], [place] [address]Dr. Ivette Hernandez Erythrocyte distribution width (RBC) [Ratio] 14.0 % Normal 11.0-15.0 [facility] Comment on above: Performed By: #### C BC ####[facility] [address] [place], [place] [address]Dr. Ivette Hernandez Hematocrit (Bld) [Volume fraction] 29.7 % Critically low 36.0-48.0 [facility] Comment on above: Performed By: #### C BC ####[facility] [address] [place], [place] [address]Dr. Ivette Hernandez Hemoglobin (Bld) [Mass/Vol] 9.2 g/dL Critically low 12.0-16.0 [facility] Comment on above: Performed By: #### C BC ####[facility] [address]rw[address] [place] [id number]. Ivette Hernandez IG # 0.08 10e3/ul Critically high 0.00-0.03 [facility] Comment on above: Performed By: #### C BC ####[facility] Gtimtc[address] [place], [place] [address]Dr. Ivette Hernandez IG % 0.8 % Critically high 0.0-0.5 [facility] Comment on above: Performed By: #### C BC ####[facility] V[address]wguyivb[address] [place] [id number]. Ivette Hernandez LYMPH # 2.5 103/ul Normal 1.2-3.8 [facility] Comment on above: Performed By: #### C BC ####[facility] Ekebbpqyez60[address] [place] [id number]. Ivette David Lymphocytes/100 WBC (Bld) 24.8 % Normal 20.5-60.0 [facility] Comment on above: Performed By: #### C BC ####[facility] [address] [place] [id number]. Cherjun Hernandez MANUAL DIFF REQ NO Normal [facility] Comment on above: Performed By: #### C BC ####[facility] C[address]rsea[address] [place] [id number]. Ivette David MCH (RBC) [Entitic mass] 28.5 pg Normal 26.7-34.0 [facility] Comment on above: Performed By: #### C BC ####[facility] Eb[address]fatc[address] [place] [id number]. Ivette Hernandez MCHC (RBC) [Mass/Vol] 31.0 g/dL Normal 29.9-35.2 [facility] Comment on above: Performed By: #### C BC ####[facility] Qqpxakbcxm5[address] [place] [id number]. Cherjun David MCV (RBC) [Entitic vol] 92.0 fL Normal 81.0-99.0 [facility] Comment on above: Performed By: #### C BC ####[facility] [address] [place] [id number]. Ivette David MONO # 0.6 103/ul Normal 0.3-0.8 [facility] Comment on above: Performed By: #### C BC ####[facility] Rbhtnpjykx90[address] [place] [id number]. Ivette David Monocytes/100 WBC (Bld) 6.3 % Normal 1.7-12.0 [facility] Comment on above: Performed By: #### C BC ####[facility] Ewmekkwkva75[address] [place] [id number]. Ivette Hernandez NEUT # 6.6 103/ul Critically high 1.4-6.5 [facility] Comment on above: Performed By: #### C BC ####[facility] [address]qxrg35[address] [place] [id number]. Ivette Hernandez Neutrophils/100 WBC (Bld) 65.2 % Normal 43.0-75.0 [facility] Comment on above: Performed By: #### C BC ####[facility] Fsfsosfcpu29[address] [place] [phone]. Ivette Hernandez Platelet mean volume (Bld) [Entitic vol] 9.7 fL Normal 9.5-13.5 [facility] Comment on above: Performed By: #### C BC ####[facility] [address]fav[address] [place] [address]Dr. Ivette Hernandez PLT 328 103/ul Normal 150-450 [facility] Comment on above: Performed By: #### C BC ####[facility] [address]lo[address] [place] [phone]. Ivette Hernandez RBC 3.23 106/ul Critically low 4.20-5.40 [facility] Comment on above: Performed By: #### C BC ####[facility] Ox[address] [place] [address]Dr. Ivette Hernandez WBC 10.1 103/ul Normal 4.0-11.0 [facility] Comment on above: Performed By: #### C BC ####[facility] Qmzcwjcnbk[address] [place] [address]Dr. Ivette Hernandez BASO # 0.0 103/ul Normal 0.0-0.1 [facility] Comment on above: Performed By: #### C BC ####[facility] [address] [place] [address]Dr. Ivette Hernandez Basophils/100 WBC (Bld) 0.4 % Normal 0.2-2.0 [facility] Comment on above: Performed By: #### C BC ####[facility] Rmknus[address]zlu[address] [place] [address]Dr. Ivette Hernandez EO # 0.2 103/ul Normal 0.0-0.7 [facility] Comment on above: Performed By: #### C BC ####[facility] Bopxccvqtv39[address] [place] [address]Dr. Ivette Hernandez Eosinophils/100 WBC (Bld) 2.9 % Normal 0.9-7.0 [facility] Comment on above: Performed By: #### C BC ####[facility] Xswlfqkmjb38[address] [place] [address]Dr. Ivette Hernandez Erythrocyte distribution width (RBC) [Ratio] 14.2 % Normal 11.0-15.0 [facility] Comment on above: Performed By: #### C BC ####[facility] Edlrzqunfp11[address] [place] [address]Dr. Ivette Hernandez Hematocrit (Bld) [Volume fraction] 27.7 % Critically low 36.0-48.0 [facility] Comment on above: Performed By: #### C BC ####[facility] Cgfixeuinl[address] [place], [place] [address]Dr. Ivette Hernandez Hemoglobin (Bld) [Mass/Vol] 8.5 g/dL Critically low 12.0-16.0 [facility] Comment on above: Performed By: #### C BC ####[facility] [address]sqpbxfncv06[address] [place] [address]Dr. Ivette Hernandez IG # 0.04 10e3/ul Critically high 0.00-0.03 [facility] Comment on above: Performed By: #### C BC ####[facility] Q[address]xhwswe[address] [place] [address]Dr. Cherjun Hernandez IG % 0.5 % Normal 0.0-0.5 [facility] Comment on above: Performed By: #### C BC ####[facility] L[address]zhx7[address] [place] [address]Dr. Cherjun Hernandez LYMPH # 2.1 103/ul Normal 1.2-3.8 [facility] Comment on above: Performed By: #### C BC ####[facility] Kcbfblkpxm8182 [place] [id number]. Ivette Hernandez Lymphocytes/100 WBC (Bld) 27.3 % Normal 20.5-60.0 [facility] Comment on above: Performed By: #### C BC ####[facility] Limxxwhspt[address] [place] [id number]. Ivette David MANUAL DIFF REQ NO Normal [facility] Comment on above: Performed By: #### C BC ####[facility] Ngqyfnzxrw25[address] [place] [phone]. Ivette David MCH (RBC) [Entitic mass] 28.1 pg Normal 26.7-34.0 [facility] Comment on above: Performed By: #### C BC ####[facility] M[address]rptmhfd38[address] [place] [address]Dr. Ivette David MCHC (RBC) [Mass/Vol] 30.7 g/dL Normal 29.9-35.2 [facility] Comment on above: Performed By: #### C BC ####[facility] Jimxyjpumx34[address] [place] [address]Dr. Ivette David MCV (RBC) [Entitic vol] 91.4 fL Normal 81.0-99.0 [facility] Comment on above: Performed By: #### C BC ####[facility] Pb[address]limu[address] [place], [place] [address]Dr. Cherjun David MONO # 0.5 103/ul Normal 0.3-0.8 [facility] Comment on above: Performed By: #### C BC ####[facility] Qnvmgujxpq1221 [place] [address]Dr. Ivette David Monocytes/100 WBC (Bld) 6.1 % Normal 1.7-12.0 [facility] Comment on above: Performed By: #### C BC ####[facility] Fvec[address] [place], [place] [address]Dr. Ivette Hernandez NEUT # 4.9 103/ul Normal 1.4-6.5 [facility] Comment on above: Performed By: #### C BC ####[facility] K[address]efeycuo70[address] [place], [place] [address]Lb. Ivette Hernandez Neutrophils/100 WBC (Bld) 62.8 % Normal 43.0-75.0 [facility] Comment on above: Performed By: #### C BC ####[facility] Favrliloua6196 [place], [place] [address]Qo. Ivette Hernandez Platelet mean volume (Bld) [Entitic vol] 9.7 fL Normal 9.5-13.5 [facility] Comment on above: Performed By: #### C BC ####[facility] Rotlmofjvh0398 [place], [place] [address]Cy. Ivette Hernandez PLT 227 103/ul Normal 150-450 [facility] Comment on above: Performed By: #### C BC ####[facility] Qtloeuytpr6129 [place], [place] [address]Dc. Ivette Hernandez RBC 3.03 106/ul Critically low 4.20-5.40 [facility] Comment on above: Performed By: #### C BC ####[facility] Xxlaeucabe7382 [place], [place] [address]Wp. Ivette Hernandez WBC 7.8 103/ul Normal 4.0-11.0 [facility] Comment on above: Performed By: #### C BC ####[facility] Dwfydyqpef2706 [place], [place] [address]Fx. Ivette Hernandez CT HEAD WO CONon 03-08-2022 CT HEAD WO CON Normal [facility] CTA HEAD WO W CONon 03-08-20 CTA HEAD WO W CON Normal [facility]on SARS-CoV-2 (COVID-19) RNA MARRY+probe Ql (Unsp spec) Not detected Normal NOT DETECTED [facility] Comment on above: Result Comment: When [...] for this test is supported by the [employer] of Health and Human Service's declaration that [...] be used). Performed By: #### C VDTBH ####[facility] [address]ai[address] [place] [address]Dr. Ivette Hernandez PROF 14(COMP METB)on 022 Albumin [Mass/Vol] 2.6 g/dL Critically low 3.4-5.0 Th [facility] Comment on above: Performed By: #### B SOLE CUTTER, CMP, HSTROPN ####[facility] Faabzishke[address] [place], [place] [address]Dr. Ivette Hernandez Albumin/Globulin [Mass ratio] 0.6 {ratio} Normal [facility] Comment on above: Performed By: #### B SOLE CUTTER, CMP, HSTROPN ####[facility] S[address]exsjx[address] [place], [place] [address]Dr. Ivette Hernandez ALP [Catalytic activity/Vol] 68 U/L Normal 46-116 [facility] Comment on above: Performed By: #### B SOLE CUTTER, CMP, HSTROPN ####[facility] Wunchpzxsj[address] [place], [place] [address]Dr. Ivette Hernandez ALT [Catalytic activity/Vol] 16 U/L Normal 14-59 [facility] Comment on above: Performed By: #### B SOLE CUTTER, CMP, HSTROPN ####[facility] Kjhjcfymok[address] [place] [address]Dr. Ivette Hernandez Anion gap [Moles/Vol] 6.8 mmol/L Normal [facility] Comment on above: Performed By: #### B SOLE CUTTER, CMP, HSTROPN ####[facility] Zkwjxnegij[address] [place], [place] [address]Dr. Ivette Hernandez AST [Catalytic activity/Vol] 18 U/L Normal 15-37 [facility] Comment on above: Performed By: #### B SOLE CUTTER, CMP, HSTROPN ####[facility] Lcxbymnwys20[address] [place] [address]Dr. Ivette Hernandez Bilirubin [Mass/Vol] 0.5 mg/dL Normal 0.2-1.0 [facility] Comment on above: Performed By: #### B SOLE CUTTER, CMP, HSTROPN ####[facility] Swwbyuhgfj[address] [place], [place] [address]Dr. Ivette Hernandez Calcium [Mass/Vol] 8.2 mg/dL Critically low 8.5-10.1 [facility] Comment on above: Performed By: #### B SOLE CUTTER, CMP, HSTROPN ####[facility] Jvdcdrtnxj[address] [place], [place] [address]Dr. Ivette Hernandez Chloride [Moles/Vol] 97 mmol/L Critically low 98-107 [facility] Comment on above: Performed By: #### B SOLE CUTTER, CMP, HSTROPN ####[facility] Kdqtpeirio[address] [place], [place] [address]Dr. Ivette Hernandez CO2 [Moles/Vol] 37.9 mmol/L Critically high 21.0-32.0 [facility] Comment on above: Performed By: #### B SOLE CUTTER, CMP, HSTROPN ####[facility] Ultyzfecmb[address] [place], [place] [address]Dr. Ivette Hernandez Creatinine [Mass/Vol] 1.65 mg/dL Critically high 0.55-1.02 [facility] Comment on above: Performed By: #### B SOLE CUTTER, CMP, HSTROPN ####[facility] [address]wjdpvqn[address] [place], [place] [address]Dr. Ivette Hernandez EGFR-AF ANGUILLAN 37 mL/min/1.73m2 Critically low >=60 [facility] Comment on above: Performed By: #### B SOLE CUTTER, CMP, HSTROPN ####[facility] Ikbrirnrsj[address] [place], [place] [address]Dr. Ivette Hernandez EGFR-NON AF ANGUILLAN 30 mL/min/1.73m2 Critically low >=60 [facility] Comment on above: Performed By: #### B SOLE CUTTER, CMP, HSTROPN ####[facility] Zmsqbdlwfb4746 [place] [address]Dr. Ivette Hernandez Globulin (S) [Mass/Vol] 4.7 g/dL Normal [facility] Comment on above: Performed By: #### B SOLE CUTTER, CMP, HSTROPN ####[facility] Bsnxtkvhih9392 [place] [address]Dr. Ivette Hernandez Glucose [Mass/Vol] 203 mg/dL Critically high 74-106 [facility] Comment on above: Performed By: #### B SOLE CUTTER, CMP, HSTROPN ####[facility] Eybcbckijv[address] [place], [place] [address]Dr. Ivette Hernandez Potassium [Moles/Vol] 3.7 mmol/L Normal 3.5-5.1 [facility] Comment on above: Performed By: #### B SOLE CUTTER, CMP, HSTROPN ####[facility] Jctphnopem[address] [place], [place] [address]Dr. Ivette Hernandez Protein [Mass/Vol] 7.3 g/dL Normal 6.4-8.2 [facility] Comment on above: Performed By: #### B SOLE CUTTER, CMP, HSTROPN ####[facility] Knfpnjixel[address] [place], [place] [address]Dr. Ivette Hernandez Sodium [Moles/Vol] 138 mmol/L Normal 136-145 [facility] Comment on above: Performed By: #### B SOLE CUTTER, CMP, HSTROPN ####[facility] Xmbcnipzjg[address] [place], [place] [address]Dr. Ivette Hernandez Urea nitrogen [Mass/Vol] 22.0 mg/dL Critically high 7.0-18.0 [facility] Comment on above: Performed By: #### B SOLE CUTTER, CMP, HSTROPN ####[facility] Kghfptclsd69[address] [place] [address]Dr. Ivette Hernandez Urea nitrogen/Creatinine [Mass ratio] 13.3 mg/mg Normal [facility] Comment on above: Performed By: #### B SOLE CUTTER, CMP, HSTROPN ####[facility] Ihcextebzb5669 [place] [address]Dr. Ivette Hernandez PROF CHEM 8 (BAS METB)on Anion gap [Moles/Vol] 6.0 mmol/L Normal [facility] Comment on above: Performed By: #### B MP ####[facility] Urvlvmzntf1302 [place] [address]Dr. Ivette Hernandez Calcium [Mass/Vol] 8.0 mg/dL Critically low 8.5-10.1 [facility] Comment on above: Performed By: #### B MP ####[facility] Jyfblafquw[address] [place], [place] [address]Dr. Ivette Hernandez Chloride [Moles/Vol] 98 mmol/L Normal 98-107 [facility] Comment on above: Performed By: #### B MP ####[facility] Snlhohsywh[address] [place], [place] [address]Dr. Ivette Hernandez CO2 [Moles/Vol] 39.9 mmol/L Critically high 21.0-32.0 [facility] Comment on above: Performed By: #### B MP ####[facility] [address]vzetxhuwm[address] [place], [place] [address]DrJesse Hernandez Creatinine [Mass/Vol] 1.56 mg/dL Critically high 0.55-1.02 [facility] Comment on above: Performed By: #### B MP ####[facility] Rbzldnarjf[address] [place], [place] [address]Dr. Ivette Hernandez EGFR-AF ANGUILLAN 39 mL/min/1.73m2 Critically low >=60 [facility] Comment on above: Performed By: #### B MP ####[facility] Hudyzzccoy[address] [place], [place] [address]Dr. Ivette Hernandez EGFR-NON AF ANGUILLAN 33 mL/min/1.73m2 Critically low >=60 [facility] Comment on above: Performed By: #### B MP ####[facility] L[address]stfvvx[address] [place], [place] [address]Dr. Ivette Hernandez Glucose [Mass/Vol] 143 mg/dL Critically high 74-106 [facility] Comment on above: Performed By: #### B MP ####[facility] Qenzhgvxfo[address] [place], [place] [address]Dr. Ivette Hernandez Potassium [Moles/Vol] 3.9 mmol/L Normal 3.5-5.1 [facility] Comment on above: Performed By: #### B MP ####[facility] Ribmofiyps[address] [place], [place] [address]Dr. Ievtte Hernandez Sodium [Moles/Vol] 140 mmol/L Normal 136-145 [facility] Comment on above: Performed By: #### B MP ####[facility] Dqcgnuwfgo[address] [place], [place] [address]Dr. Ivette Hernandez Urea nitrogen [Mass/Vol] 23.0 mg/dL Critically high 7.0-18.0 [facility] Comment on above: Performed By: #### B MP ####[facility] Giqahaahoh[address] [place], [place] [address]Dr. Ivette Hernandez Urea nitrogen/Creatinine [Mass ratio] 14.7 mg/mg Normal [facility] Comment on above: Performed By: #### B MP ####[facility] Higzeaoiog[address] [place], [place] [address]Dr. Ivette Hernandez PROTIMEon 03-08-2022 INR Coag (PPP) [Relative time] 1.11 {INR} Normal [facility] Comment on above: Performed By: #### P T, PTT ####[facility] Kacfvmvcor[address] [place], [place] [address]Dr. Ivette Hernandez INR GUIDELINES SEE BELOW Normal [facility] Comment on above: Result Comment: MELANIE RED INR: 2.0 - 3.0 CONDITIONS NOT LISTED BELOW 2.5 - 3.5 FOR PROSTHETIC HEART VALVE REPLACEMENT 2.5 - 3.5 RECURRENT THROMBOSIS Performed By: #### P T, PTT ####[facility] Inisxciofr[address] [place], [place] [address]Dr. Ivette Hernandez PT Coag (PPP) [Time] 11.9 s Critically high 9.0-11.6 [facility] Comment on above: Performed By: #### P T, PTT ####[facility] [address]qzbwpsz[address] [place] [id number]. Ivette Hernandez PTTon 03-08-2022 aPTT Coag (Bld) [Time] 29.0 s Normal 22.3-36.2 [facility] Comment on above: Performed By: #### P T, PTT ####[facility] Aztfxfqmzr6024 [place] [address]Dr. Ivette Hernandez TROPONIN, HIGH SENSITIVITYon 03-08-2022 HSTROP 74.2 pg/mL Critically high 4.0-51.3 [facility] Comment on above: Result Comment: CUT- OFF POINTS HAVE BEEN ESTABLISHED BASED ON THE FOURTH UNIVERSAL DEFINITIONS OF MYOCARDIALINFARCTION. THE UPPER REFERENCE LIMIT (URL) OF TROPONIN, DEFINED THE 99TH PERCENTILE OFcTnI DISTRIBUTION IN A REFERENCE POPULATION, HAS BEEN CONFIRMED THE DECISION THRESHOLDFOR MD DIAGNOSIS. Performed By: #### B SOLE CUTTER, CMP, HSTROPN ####[facility] Lamrieophy[address] [place] [address]Dr. Ivette Hernandez XR CHEST 1 Von 03-08-2022 XR CHEST 1 V Normal [facility] CBC AUTO DIFFon 03-07-2022 BASO # 0.0 103/ul Normal 0.0-0.1 [facility] Comment on above: Performed By: #### C BC ####[facility] Eoeungtjdz89[address] [place] [address]Dr. Ivette Hernandez Basophils/100 WBC (Bld) 0.5 % Normal 0.2-2.0 [facility] Comment on above: Performed By: #### C BC ####[facility] Nkbifottue6981 [place] [id number]. Ivette Hernandez EO # 0.3 103/ul Normal 0.0-0.7 [facility] Comment on above: Performed By: #### C BC ####[facility] Xwkzwzbpzu2820 [place] [id number]. Ivette Hernandez Eosinophils/100 WBC (Bld) 3.9 % Normal 0.9-7.0 [facility] Comment on above: Performed By: #### C BC ####[facility] Iixqdqrszq5087 [place] [address]Dr. Ivette Hernandez Erythrocyte distribution width (RBC) [Ratio] 14.1 % Normal 11.0-15.0 [facility] Comment on above: Performed By: #### C BC ####[facility] Kyzaakglnj2169 [place] [address]Dr. Ivette Hernandez Hematocrit (Bld) [Volume fraction] 26.9 % Critically low 36.0-48.0 [facility] Comment on above: Performed By: #### C BC ####[facility] N[address]zsmkqpuy[address] [place], [place] [address]DrJesse Ivette Hernandez Hemoglobin (Bld) [Mass/Vol] 8.1 g/dL Critically low 12.0-16.0 [facility] Comment on above: Performed By: #### C BC ####[facility] Q[address]jfppvcc[address] [place], [place] [address]DrJesse Ivette Hernandez IG # 0.06 10e3/ul Critically high 0.00-0.03 [facility] Comment on above: Performed By: #### C BC ####[facility] Ucutyecptc[address] [place], [place] [address]DrJesse Ivette Hernandez IG % 0.8 % Critically high 0.0-0.5 [facility] Comment on above: Performed By: #### C BC ####[facility] Z[address] [place], [place] [address]DrJesse Ivette Hernandez LYMPH # 1.7 103/ul Normal 1.2-3.8 [facility] Comment on above: Performed By: #### C BC ####[facility] Hxkaxpmbyf[address] [place], [place] [address]DrJesse Ivette Hernandez Lymphocytes/100 WBC (Bld) 21.9 % Normal 20.5-60.0 [facility] Comment on above: Performed By: #### C BC ####[facility] Bjswynftkd[address] [place], [place] [address]DrJesse Ivette Hernandez MANUAL DIFF REQ NO Normal [facility] Comment on above: Performed By: #### C BC ####[facility] Hqhoiwzqiy6176 [place] [id number]. Ivette David MCH (RBC) [Entitic mass] 28.2 pg Normal 26.7-34.0 [facility] Comment on above: Performed By: #### C BC ####[facility] Vquteafymd2346 [place] [id number]. Cherjun David MCHC (RBC) [Mass/Vol] 30.1 g/dL Normal 29.9-35.2 [facility] Comment on above: Performed By: #### C BC ####[facility] Nlpmdpzeud7628 [place] [address]Dr. Ivette Hernandez MCV (RBC) [Entitic vol] 93.7 fL Normal 81.0-99.0 [facility] Comment on above: Performed By: #### C BC ####[facility] [address]ffmayaf[address] [place], [place] [address]Dr. Ivette Hernandez MONO # 0.5 103/ul Normal 0.3-0.8 [facility] Comment on above: Performed By: #### C BC ####[facility] Ljbkkhmmku[address] [place], [place] [address]Dr. Ivette Hernandez Monocytes/100 WBC (Bld) 6.5 % Normal 1.7-12.0 [facility] Comment on above: Performed By: #### C BC ####[facility] Ctlegouiht[address] [place], [place] [address]Dr. Ivette Hernandez NEUT # 5.3 103/ul Normal 1.4-6.5 [facility] Comment on above: Performed By: #### C BC ####[facility] K[address] [place], [place] [id number] Hernandez Neutrophils/100 WBC (Bld) 66.4 % Normal 43.0-75.0 [facility] Comment on above: Performed By: #### C BC ####[facility] Qwmosikwcf[address] [place], [place] [address]DrJesse Hernandez Platelet mean volume (Bld) [Entitic vol] 9.9 fL Normal 9.5-13.5 [facility] Comment on above: Performed By: #### C BC ####[facility] [address] [place] [id number]. Ivette David PLT 229 103/ul Normal 150-450 [facility] Comment on above: Performed By: #### C BC ####[facility] Ellvuwdytf47[address] [place] [id number]. Ivette David RBC 2.87 106/ul Critically low 4.20-5.40 [facility] Comment on above: Performed By: #### C BC ####[facility] Yjtefpoznc8[address] [place] [id number]. Ivette David WBC 7.9 103/ul Normal 4.0-11.0 [facility] Comment on above: Performed By: #### C BC ####[facility] Bdfobulrov[address] [place] [address]Dr. Ivette Hernandez PROF CHEM 8 (BAS METB)on Anion gap [Moles/Vol] 2.9 mmol/L Normal [facility] Comment on above: Performed By: #### B MP ####[facility] Egekpjoveh[address] [place], [place] [address]Dr. Ivette Hernandez Calcium [Mass/Vol] 7.5 mg/dL Critically low 8.5-10.1 [facility] Comment on above: Performed By: #### B MP ####[facility] Btiwjinsct32[address] [place] [id number]. Ivette Hernandez Chloride [Moles/Vol] 102 mmol/L Normal 98-107 [facility] Comment on above: Performed By: #### B MP ####[facility] Oazlkjlnen[address] [place], [place] [address]DrJesse Hernandez CO2 [Moles/Vol] 41.1 mmol/L Critically high 21.0-32.0 [facility] Comment on above: Performed By: #### B MP ####[facility] Zwjepciyjj[address] [place], [place] [address]DrJesse Hernandez Creatinine [Mass/Vol] 1.58 mg/dL Critically high 0.55-1.02 [facility] Comment on above: Performed By: #### B MP ####[facility] [address]zcxtmcbpl[address] [place] [address]Dr. Ivette Hernandez EGFR-AF ANGUILLAN 39 mL/min/1.73m2 Critically low >=60 [facility] Comment on above: Performed By: #### B MP ####[facility] Rnfoqxtajs51[address] [place] [address]Dr. Ivette Hernandez EGFR-NON AF ANGUILLAN 32 mL/min/1.73m2 Critically low >=60 [facility] Comment on above: Performed By: #### B MP ####[facility] Qjnbkhluxm6[address] [place], [place] [address]Dr. Ivette Hernandez Glucose [Mass/Vol] 115 mg/dL Critically high 74-106 T [facility] Comment on above: Performed By: #### B MP ####[facility] Pexyrllufi[address] [place], [place] [address]Dr. Ivette Hernandez Potassium [Moles/Vol] 4.0 mmol/L Normal 3.5-5.1 [facility] Comment on above: Performed By: #### B MP ####[facility] Rlxlghvbvk7[address] [place], [place] [address]Dr. Ivette Hernandez Sodium [Moles/Vol] 142 mmol/L Normal 136-145 [facility] Comment on above: Performed By: #### B MP ####[facility] Mdfmtzjgdh8[address] [place], [place] [address]Dr. Ivette Hernandez Urea nitrogen [Mass/Vol] 23.0 mg/dL Critically high 7.0-18.0 [facility] Comment on above: Performed By: #### B MP ####[facility] Pvjgpxopfj[address] [place], [place] [address]Dr. Ivette Hernandez Urea nitrogen/Creatinine [Mass ratio] 14.6 mg/mg Normal [facility] Comment on above: Performed By: #### B MP ####[facility] Dxfbwsascr[address] [place], [place] [address]Dr. Ivette Hernandez CBC AUTO DIFFon 03-06-2022 BASO # 0.0 103/ul Normal 0.0-0.1 [facility] Comment on above: Performed By: #### C BC ####[facility] Orkfokjimo[address] [place] [address]Dr. Ivette Hernandez Basophils/100 WBC (Bld) 0.3 % Normal 0.2-2.0 [facility] Comment on above: Performed By: #### C BC ####[facility] Xirsgblmbi[address] [place], [place] [address]Dr. Ivette Hernandez EO # 0.2 103/ul Normal 0.0-0.7 [facility] Comment on above: Performed By: #### C BC ####[facility] Arirmmnifd14[address] [place], [place] [address]Dr. Ivette Hernandez Eosinophils/100 WBC (Bld) 2.4 % Normal 0.9-7.0 [facility] Comment on above: Performed By: #### C BC ####[facility] Cseyytppvr[address] [place], [place] [address]Dr. Ivette Hernandez Erythrocyte distribution width (RBC) [Ratio] 14.3 % Normal 11.0-15.0 [facility] Comment on above: Performed By: #### C BC ####[facility] Ovboeogitb[address] [place], [place] [address]Dr. Ivette Hernandez Hematocrit (Bld) [Volume fraction] 27.2 % Critically low 36.0-48.0 [facility] Comment on above: Performed By: #### C BC ####[facility] Qdzpwhwwof[address] [place], [place] [address]Dr. Ivette Hernandez Hemoglobin (Bld) [Mass/Vol] 7.8 g/dL Critically low 12.0-16.0 [facility] Comment on above: Performed By: #### C BC ####[facility] Mvuifnepey[address] [place], [place] [address]Dr. Cherjun Hernandez IG # 0.07 10e3/ul Critically high 0.00-0.03 [facility] Comment on above: Performed By: #### C BC ####[facility] Kpsqiqmyem[address] [place], [place] [address]Dr. Ivette Hernandez IG % 0.8 % Critically high 0.0-0.5 [facility] Comment on above: Performed By: #### C BC ####[facility] Mwvsnoskzo0935 [place] [address]Dr. Ivette Hernandez LYMPH # 1.8 103/ul Normal 1.2-3.8 [facility] Comment on above: Performed By: #### C BC ####[facility] Kyclobprho[address] [place] [address]Dr. Ivette Hernandez Lymphocytes/100 WBC (Bld) 21.2 % Normal 20.5-60.0 [facility] Comment on above: Performed By: #### C BC ####[facility] Gdvhgbqtqn4555 [place] [address]DrJesse Hernandez MANUAL DIFF REQ NO Normal [facility] Comment on above: Performed By: #### C BC ####[facility] Cwvbwvnlwy36[address] [place] [address]Dr. Ivette Hernandez MCH (RBC) [Entitic mass] 27.6 pg Normal 26.7-34.0 [facility] Comment on above: Performed By: #### C BC ####[facility] Xesbuiflnu5865 [place] [address]DrJesse Hernandez MCHC (RBC) [Mass/Vol] 28.7 g/dL Critically low 29.9-35.2 [facility] Comment on above: Performed By: #### C BC ####[facility] Jpnxydfkhh7753 [place] [address]DrJesse Hernandez MCV (RBC) [Entitic vol] 96.1 fL Normal 81.0-99.0 [facility] Comment on above: Performed By: #### C BC ####[facility] Wwazrzgypd6435 [place] [address]DrJesse Hernandez MONO # 0.6 103/ul Normal 0.3-0.8 [facility] Comment on above: Performed By: #### C BC ####[facility] Abvhglmtvb7011 [place] [address]DrJesse Hernandez Monocytes/100 WBC (Bld) 6.8 % Normal 1.7-12.0 [facility] Comment on above: Performed By: #### C BC ####[facility] Minagbnxyj5[address] [place] [address]Dr. Ivette Hernandez NEUT # 5.9 103/ul Normal 1.4-6.5 [facility] Comment on above: Performed By: #### C BC ####[facility] Haqdsevoca6053 [place] [address]DrJesse Ivette Hernandez Neutrophils/100 WBC (Bld) 68.5 % Normal 43.0-75.0 [facility] Comment on above: Performed By: #### C BC ####[facility] Hljqldxllj[address] [place], [place] [address]Dr. Ivette Hernandez Platelet mean volume (Bld) [Entitic vol] 9.9 fL Normal 9.5-13.5 [facility] Comment on above: Performed By: #### C BC ####[facility] Ibiqnhkfej[address] [place], [place] [address]Dr. Ivette Hernandez PLT 193 103/ul Normal 150-450 [facility] Comment on above: Performed By: #### C BC ####[facility] Csjlzpuzgm9[address] [place], [place] [address]Dr. Ivette Hernandez RBC 2.83 106/ul Critically low 4.20-5.40 [facility] Comment on above: Performed By: #### C BC ####[facility] Yezgaskhgl[address] [place], [place] [address]DrJesse Ivette David WBC 8.7 103/ul Normal 4.0-11.0 [facility] Comment on above: Performed By: #### C BC ####[facility] Bdsjbaghzw6374 [place] [address]DrJesse Cherjun Hernandez PROF CHEM 8 (BAS METB)on Anion gap [Moles/Vol] 2.7 mmol/L Normal [facility] Comment on above: Performed By: #### B MP ####[facility] Toolbyzwzx[address] [place], [place] [address]Dr. Ivette Hernandez Calcium [Mass/Vol] 7.6 mg/dL Critically low 8.5-10.1 [facility] Comment on above: Performed By: #### B MP ####[facility] Pdwpwktdof2094 [place] [address]Dr. Ivette Hernandez Chloride [Moles/Vol] 103 mmol/L Normal 98-107 [facility] Comment on above: Performed By: #### B MP ####[facility] Yjloplzsye[address] [place], [place] [address]Dr. Ivette Hernandez CO2 [Moles/Vol] 41.1 mmol/L Critically high 21.0-32.0 [facility] Comment on above: Performed By: #### B MP ####[facility] Emkqvuqzqp27[address] [place], [place] [address]Dr. Ivette Hernandez Creatinine [Mass/Vol] 1.61 mg/dL Critically high 0.55-1.02 [facility] Comment on above: Performed By: #### B MP ####[facility] Icdxwuyffr[address] [place], [place] [address]Dr. Ivette Hernandez EGFR-AF ANGUILLAN 38 mL/min/1.73m2 Critically low >=60 [facility] Comment on above: Performed By: #### B MP ####[facility] Dcwybugqie[address] [place], [place] [address]Dr. Ivette Hernandez EGFR-NON AF ANGUILLAN 31 mL/min/1.73m2 Critically low >=60 [facility] Comment on above: Performed By: #### B MP ####[facility] Blszhthayc0202 [place] [address]Dr. Ivette Hernandez Glucose [Mass/Vol] 124 mg/dL Critically high 74-106 [facility] Comment on above: Performed By: #### B MP ####[facility] Qasrmmjxor[address] [place], [place] [address]Dr. Ivette Hernandez Potassium [Moles/Vol] 3.8 mmol/L Normal 3.5-5.1 [facility] Comment on above: Performed By: #### B MP ####[facility] Cgshuahecb4697 [place] [address]Dr. Ivette Hernandez Sodium [Moles/Vol] 143 mmol/L Normal 136-145 [facility] Comment on above: Performed By: #### B MP ####[facility] Dtvmcliwtn[address] [place], [place] [address]Dr. Ivette Hernandez Urea nitrogen [Mass/Vol] 26.0 mg/dL Critically high 7.0-18.0 [facility] Comment on above: Performed By: #### B MP ####[facility] Xhueiudlnl[address] [place], [place] [address]Dr. Ivette Hernandez Urea nitrogen/Creatinine [Mass ratio] 16.1 mg/mg Normal [facility] Comment on above: Performed By: #### B MP ####[facility] Perdhewwoo[address] [place], [place] [address]Dr. Ivette Hernandez BNPon 03-05-2022 Natriuretic peptide B (Bld) [Mass/Vol] 04667.0 pg/mL Critically high <=900.0 [facility] Comment on above: Performed By: #### H STROPN, BNP, CMP ####[facility] Ojzigmrhot[address] [place], [place] [address]Dr. Ivette Hernandez CBC AUTO DIFFon 03-05-2022 BASO # 0.0 103/ul Normal 0.0-0.1 [facility] Comment on above: Performed By: #### C BC ####[facility] Wssexkuilo[address] [place], [place] [address]Dr. Ivette David Basophils/100 WBC (Bld) 0.4 % Normal 0.2-2.0 [facility] Comment on above: Performed By: #### C BC ####[facility] Rfprebslfs06[address] [place], [place] [address]Dr. Ivette Hernandez EO # 0.4 103/ul Normal 0.0-0.7 [facility] Comment on above: Performed By: #### C BC ####[facility] Qegynfrcvb896[address] [place], [place] [address]Dr. Ivette David Eosinophils/100 WBC (Bld) 3.1 % Normal 0.9-7.0 [facility] Comment on above: Performed By: #### C BC ####[facility] Pvtpmaqjmn4106 [place] [address]Dr. Ivette Hernandez Erythrocyte distribution width (RBC) [Ratio] 14.5 % Normal 11.0-15.0 [facility] Comment on above: Performed By: #### C BC ####[facility] Ouykhtxvjb7779 [place] [address]Dr. Ivette Hernandez Hematocrit (Bld) [Volume fraction] 25.3 % Critically low 36.0-48.0 [facility] Comment on above: Performed By: #### C BC ####[facility] Vapgymauik[address] [place], [place] [address]Dr. Ivette Hernandez Hemoglobin (Bld) [Mass/Vol] 7.5 g/dL Critically low 12.0-16.0 [facility] Comment on above: Performed By: #### C BC ####[facility] Sjixfcrtsx[address] [place], [place] [address]DrJesse Ivette Hernandez IG # 0.08 10e3/ul Critically high 0.00-0.03 [facility] Comment on above: Performed By: #### C BC ####[facility] Iofyrdxwpm[address] [place], [place] [address]DrJesse Ivette Hernandez IG % 0.7 % Critically high 0.0-0.5 [facility] Comment on above: Performed By: #### C BC ####[facility] Rhkszumhiw[address] [place], [place] [address]DrJesse Ivette Hernandez LYMPH # 1.7 103/ul Normal 1.2-3.8 [facility] Comment on above: Performed By: #### C BC ####[facility] Cpytatxfxk[address] [place], [place] [address]DrJesse Ivette Hernandez Lymphocytes/100 WBC (Bld) 14.7 % Critically low 20.5-60.0 [facility] Comment on above: Performed By: #### C BC ####[facility] Gehxwodwke[address] [place], [place] [address]DrJesse Ivette Hernandez MANUAL DIFF REQ NO Normal [facility] Comment on above: Performed By: #### C BC ####[facility] Xvtqarmhuh5985 [place] [address]Dr. Ivette David MCH (RBC) [Entitic mass] 27.9 pg Normal 26.7-34.0 [facility] Comment on above: Performed By: #### C BC ####[facility] Yguwhinfhr7836 [place] [address]Dr. Cherjun David MCHC (RBC) [Mass/Vol] 29.6 g/dL Critically low 29.9-35.2 [facility] Comment on above: Performed By: #### C BC ####[facility] Abjlaauxzg1800 [place] [address]Dr. Ivette Hernandez MCV (RBC) [Entitic vol] 94.1 fL Normal 81.0-99.0 [facility] Comment on above: Performed By: #### C BC ####[facility] Imhasubscw[address] [place], [place] [address]DrJesse Hernandez MONO # 0.9 103/ul Critically high 0.3-0.8 [facility] Comment on above: Performed By: #### C BC ####[facility] Gotlaolhdg[address] [place], [place] [address]Dr. Ivette Hernandez Monocytes/100 WBC (Bld) 7.7 % Normal 1.7-12.0 [facility] Comment on above: Performed By: #### C BC ####[facility] Pefntrdeko[address] [place], [place] [address]DrJesse Hernandez NEUT # 8.3 103/ul Critically high 1.4-6.5 [facility] Comment on above: Performed By: #### C BC ####[facility] Idljzruoto[address] [place], [place] [address]DrJesse Hernandez Neutrophils/100 WBC (Bld) 73.4 % Normal 43.0-75.0 [facility] Comment on above: Performed By: #### C BC ####[facility] Guwycssifo[address] [place], [place] [address]DrJesse Hernandez Platelet mean volume (Bld) [Entitic vol] 9.8 fL Normal 9.5-13.5 [facility] Comment on above: Performed By: #### C BC ####[facility] L[address]xzbqedo[address]12 [place], [place] [address]Vo. Ivette Hernandez PLT 256 103/ul Normal 150-450 [facility] Comment on above: Performed By: #### C BC ####[facility] Ttcsqnscoo4044 [place], [place] [address]Mx. Ivette Hernandez RBC 2.69 106/ul Critically low 4.20-5.40 [facility] Comment on above: Performed By: #### C BC ####[facility] Mkmmhcgaju7432 [place], [place] [address]Vy. Ivette Hernandez WBC 11.3 103/ul Critically high 4.0-11.0 [facility] Comment on above: Performed By: #### C BC ####[facility] Fxoqrqsbur3384 [place], [place] [address]Yr. Ivette Hernandez Covid-19 PCR (CVDTB)on SARS-CoV-2 (COVID-19) RNA MARRY+probe Ql (Unsp spec) Not detected Normal NOT DETECTED [facility] Comment on above: Result Comment: When [...] for this test is supported by the [place] of Health and Human Service's declaration that [...] be used). Performed By: #### C VDTBH ####[facility] Wzpxzqrxlt9908 [place] [address]Dr. Ivette Hernandez LACTATE/LACTIC ACIDon 2021 Lactate [Moles/Vol] 0.6 mmol/L Normal 0.4-1.9 [facility] Comment on above: Performed By: #### L ACT ####[facility] Qmulxkeiay8152 [place] [address]Dr. Ivette Hernandez PROF 14(COMP METB)on 022 Albumin [Mass/Vol] 2.3 g/dL Critically low 3.4-5.0 [facility] Comment on above: Performed By: #### H STROPN, BNP, CMP ####[facility] Zetzdunlus76[address] [place] [address]Dr. Ivette Hernandez Albumin/Globulin [Mass ratio] 0.5 {ratio} Normal [facility] Comment on above: Performed By: #### H STROPN, BNP, CMP ####[facility] Rwdjldoeww[address] [place], [place] [address]Dr. Ivette Hernandez ALP [Catalytic activity/Vol] 72 U/L Normal 46-116 [facility] Comment on above: Performed By: #### H STROPN, BNP, CMP ####[facility] Ytkixrfbxs8[address] [place], [place] [address]Dr. Ivette Hernandez ALT [Catalytic activity/Vol] 15 U/L Normal 14-59 [facility] Comment on above: Performed By: #### H STROPN, BNP, CMP ####[facility] Lgsipoecmi2375 [place] [address]Dr. Ivette Hernandez Anion gap [Moles/Vol] 5.3 mmol/L Normal [facility] Comment on above: Performed By: #### H STROPN, BNP, CMP ####[facility] Mqwloxvdxo1416 [place] [address]Dr. Ivette Hernandez AST [Catalytic activity/Vol] 16 U/L Normal 15-37 [facility] Comment on above: Performed By: #### H STROPN, BNP, CMP ####[facility] Ddtnjiiwhz4027 [place] [address]Dr. Ivette Hernandez Bilirubin [Mass/Vol] 0.5 mg/dL Normal 0.2-1.0 [facility] Comment on above: Performed By: #### H STROPN, BNP, CMP ####[facility] Ylbkrzgecv0677 [place] [address]Dr. Ivette Hernandez Calcium [Mass/Vol] 7.8 mg/dL Critically low 8.5-10.1 [facility] Comment on above: Performed By: #### H STROPN, BNP, CMP ####[facility] Tqjlrxgthj[address] [place], [place] [address]Dr. Ivette Hernandez Chloride [Moles/Vol] 102 mmol/L Normal 98-107 [facility] Comment on above: Performed By: #### H STROPN, BNP, CMP ####[facility] Cytupvfjbj[address] [place], [place] [address]Dr. Ivette Hernandez CO2 [Moles/Vol] 38.3 mmol/L Critically high 21.0-32.0 [facility] Comment on above: Performed By: #### H STROPN, BNP, CMP ####[facility] Vbtznkapll[address] [place], [place] [address]Dr. Ivette Hernandez Creatinine [Mass/Vol] 1.50 mg/dL Critically high 0.55-1.02 [facility] Comment on above: Performed By: #### H STROPN, BNP, CMP ####[facility] Qzzdvubtqz[address] [place], [place] [address]Dr. Ivette Hernandez EGFR-AF ANGUILLAN 41 mL/min/1.73m2 Critically low >=60 [facility] Comment on above: Performed By: #### H STROPN, BNP, CMP ####[facility] Sdenkwnhvo[address] [place], [place] [address]Dr. Ivette Hernandez EGFR-NON AF ANGUILLAN 34 mL/min/1.73m2 Critically low >=60 [facility] Comment on above: Performed By: #### H STROPN, BNP, CMP ####[facility] Ijtgzbggmo[address] [place], [place] [address]Dr. Ivette Hernandez Globulin (S) [Mass/Vol] 4.3 g/dL Normal [facility] Comment on above: Performed By: #### H STROPN, BNP, CMP ####[facility] Yjmpxnsymi6740 [place] [address]Dr. Ivette Hernandez Glucose [Mass/Vol] 138 mg/dL Critically high 74-106 [facility] Comment on above: Performed By: #### H STROPN, BNP, CMP ####[facility] Aviuyxymzj6137 [place] [address]Dr. Ivette Hernandez Potassium [Moles/Vol] 3.6 mmol/L Normal 3.5-5.1 [facility] Comment on above: Performed By: #### H STROPN, BNP, CMP ####[facility] Jvxmdrrgax5064 [place] [address]Dr. Ivette Hernandez Protein [Mass/Vol] 6.6 g/dL Normal 6.4-8.2 [facility] Comment on above: Performed By: #### H STROPN, BNP, CMP ####[facility] Zpevxuxkuy3324 [place] [address]Dr. Ivette Hernandez Sodium [Moles/Vol] 142 mmol/L Normal 136-145 [facility] Comment on above: Performed By: #### H STROPN, BNP, CMP ####[facility] Eugawvyrlh5370 [place] [address]Dr. Ivette Hernandez Urea nitrogen [Mass/Vol] 24.0 mg/dL Critically high 7.0-18.0 [facility] Comment on above: Performed By: #### H STROPN, BNP, CMP ####[facility] Wbeulmfpah5059 [place] [address]Dr. Ivette Hernandez Urea nitrogen/Creatinine [Mass ratio] 16.0 mg/mg Normal [facility] Comment on above: Performed By: #### H STROPN, BNP, CMP ####[facility] Nbnlvqwlpz4745 [place] [address]Dr. Ivette Hernandez TROPONIN, HIGH SENSITIVITYon 03-05-2022 HSTROP 18.0 pg/mL Normal 4.0-51.3 [facility] Comment on above: Result Comment: CUT- OFF POINTS HAVE BEEN ESTABLISHED BASED ON THE FOURTH UNIVERSAL DEFINITIONS OF MYOCARDIALINFARCTION. THE UPPER REFERENCE LIMIT (URL) OF TROPONIN, DEFINED THE 99TH PERCENTILE OFcTnI DISTRIBUTION IN A REFERENCE POPULATION, HAS BEEN CONFIRMED THE DECISION THRESHOLDFOR MD DIAGNOSIS. Performed By: #### H STROPN, BNP, CMP ####[facility] Zufwnthroa1699 [place] [address]Dr. Ivette Hernandez XR CHEST 1 Von 03-05-2022 XR CHEST 1 V Normal [facility] CBC AUTO DIFFon 02-27-2022 BASO # 0.0 103/ul Normal 0.0-0.1 [facility] Comment on above: Performed By: #### C BC ####[facility] Tuksmdarco3490 [place] [address]Dr. Ivette Hernandez Basophils/100 WBC (Bld) 0.2 % Normal 0.2-2.0 [facility] Comment on above: Performed By: #### C BC ####[facility] Jrknqpxwja[address] [place], [place] [address]Dr. Ivette Hernandez EO # 0.2 103/ul Normal 0.0-0.7 [facility] Comment on above: Performed By: #### C BC ####[facility] Dcligbcjmx9043 [place] [address]Dr. Ivette Hernandez Eosinophils/100 WBC (Bld) 1.9 % Normal 0.9-7.0 [facility] Comment on above: Performed By: #### C BC ####[facility] Pjbvtdgjxn[address] [place], [place] [address]Dr. Ivette Hernandez Erythrocyte distribution width (RBC) [Ratio] 14.0 % Normal 11.0-15.0 [facility] Comment on above: Performed By: #### C BC ####[facility] Chronnqvoy[address] [place], [place] [address]Dr. Ivette Hernandez Hematocrit (Bld) [Volume fraction] 28.7 % Critically low 36.0-48.0 [facility] Comment on above: Performed By: #### C BC ####[facility] Abrmnheuzv[address] [place], [place] [address]Dr. Ivette Hernandez Hemoglobin (Bld) [Mass/Vol] 8.8 g/dL Critically low 12.0-16.0 [facility] Comment on above: Performed By: #### C BC ####[facility] Tdnosyobdm0772 [place] [address]DrJesse Hernandez IG # 0.05 10e3/ul Critically high 0.00-0.03 [facility] Comment on above: Performed By: #### C BC ####[place] [facility] [address] [place] [address]DrJesse eHrnandez IG % 0.5 % Normal 0.0-0.5 [facility] Comment on above: Performed By: #### C BC ####[facility] [address] [place] [address]DrJesse Hernandez LYMPH # 2.1 103/ul Normal 1.2-3.8 [facility] Comment on above: Performed By: #### C BC ####[facility] [address]wfobtx[address] [place] [address]DrJesse Hernandez Lymphocytes/100 WBC (Bld) 21.3 % Normal 20.5-60.0 [facility] Comment on above: Performed By: #### C BC ####[facility] [address]udf[address] [place] [address]DrJesse Hernandez MANUAL DIFF REQ NO Normal [facility] Comment on above: Performed By: #### C BC ####[facility] [address]kgvqby86[address] [place] [address]DrJesse Hernandez MCH (RBC) [Entitic mass] 27.6 pg Normal 26.7-34.0 [facility] Comment on above: Performed By: #### C BC ####[facility] [address]mxw[address] [place] [address]DrJesse Hernandez MCHC (RBC) [Mass/Vol] 30.7 g/dL Normal 29.9-35.2 [facility] Comment on above: Performed By: #### C BC ####[facility] [address]xh[address] [place] [address]DrJesse Hernandez MCV (RBC) [Entitic vol] 90.0 fL Normal 81.0-99.0 [facility] Comment on above: Performed By: #### C BC ####[facility] Ywquhsqbxf[address] [place] [address]Dr. Ivette Hernandez MONO # 0.6 103/ul Normal 0.3-0.8 [facility] Comment on above: Performed By: #### C BC ####[facility] Hirglzxmaq[address] [place] [address]Dr. Ivette David Monocytes/100 WBC (Bld) 6.5 % Normal 1.7-12.0 [facility] Comment on above: Performed By: #### C BC ####[facility] Dsedgdqzwv[address] [place] [address]Dr. Ivette Hernandez NEUT # 6.7 103/ul Critically high 1.4-6.5 [facility] Comment on above: Performed By: #### C BC ####[facility] Desjfifzbm[address] [place] [address]Dr. Ivette David Neutrophils/100 WBC (Bld) 69.6 % Normal 43.0-75.0 [facility] Comment on above: Performed By: #### C BC ####[facility] Fmyykzguti[address] [place], [place] [address]Dr. Ivette Hernandez Platelet mean volume (Bld) [Entitic vol] 9.6 fL Normal 9.5-13.5 [facility] Comment on above: Performed By: #### C BC ####[facility] Rftwtzrjpu[address] [place], [place] [address]Dr. Ivette David PLT 236 103/ul Normal 150-450 [facility] Comment on above: Performed By: #### C BC ####[facility] [address]ag[address] [place] [id number]. Ivette David RBC 3.19 106/ul Critically low 4.20-5.40 [facility] Comment on above: Performed By: #### C BC ####[facility] Cxfatzibvt[address] [place] [id number]. Ivette David WBC 9.6 103/ul Normal 4.0-11.0 [facility] Comment on above: Performed By: #### C BC ####[facility] Pisnshhxun[address] [place], [place] [address]Dr. Ivette Hernandez GI PANEL (PCR)on 02-27-2022 Adenovirus F 40/41 Not detected Normal NOT DETECTED [facility] Comment on above: Performed By: #### G IPANEL ####[facility] Ttubcuyopq[address] [place], [place] [address]Dr. Ivette Hernandez Astrovirus Not detected Normal NOT DETECTED [facility] Comment on above: Performed By: #### G IPANEL ####[facility] Yrefwyruld7[address] [place], [place] [address]Dr. Ivette Hernandez C. Diff toxin A/B Detected Critically abnormal NOT DETECTED [facility] Comment on above: Performed By: #### G IPANEL ####[facility] Wruhadceel[address] [place], [place] [address]Dr. Ivette Hernandez Campylobacter Not detected Normal NOT DETECTED [facility] Comment on above: Performed By: #### G IPANEL ####[facility] Mabpkwcbrc[address] [place], [place] [address]Dr. vIette Hernandez Cryptosporidium Not detected Normal NOT DETECTED [facility] Comment on above: Performed By: #### G IPANEL ####[facility] Edesqajpob[address] [place], [place] [address]Dr. Ivette Hernandez Cyclos. Cayetanensis Not detected Normal NOT DETECTED [facility] Comment on above: Performed By: #### G IPANEL ####[facility] Gaczwrdcyp02[address] [place], [place] [address]Dr. Ivette Hernandez E. Coli O157 Not Applicable Normal Not Applicable [facility] Comment on above: Performed By: #### G IPANEL ####[facility] Imhekhrvxn23[address] [place], [place] [address]Dr. Ivette Hernandez E. histolytica Not detected Normal NOT DETECTED [facility] Comment on above: Performed By: #### G IPANEL ####[facility] Flnnzjkluq[address] [place], [place] [address]Dr. Ivette Hernandez EAEC Not detected Normal NOT DETECTED [facility] Comment on above: Performed By: #### G IPANEL ####[facility] Qridatnkms[address] [place] [address]Dr. Cherjun Hernandez EIEC Not detected Normal NOT DETECTED [facility] Comment on above: Performed By: #### G IPANEL ####[facility] [address]vhpz[address]xqf[address] [place] [address]Dr. Ivette Hernandez EPEC Not detected Normal NOT DETECTED [facility] Comment on above: Performed By: #### G IPANEL ####[facility] Jebsfzdvct[address] [place], [place] [address]Dr. Cherjun Hernandez ETEC Not detected Normal NOT DETECTED [facility] Comment on above: Performed By: #### G IPANEL ####[facility] Qoiofpxcll[address] [place], [place] [address]Dr. Ivette Hernandez G. Lamblia Not detected Normal NOT DETECTED [facility] Comment on above: Performed By: #### G IPANEL ####[facility] Fynjsikios[address] [place], [place] [address]Dr. Ivette [facility] CONTROLS PASSED Normal [facility] Comment on above: Performed By: #### G IPANEL ####[facility] Fgezvrmund[address] [place], [place] [address]Dr. Ivette [facility] HEADER GI PANEL BACTERIA Normal [facility] Comment on above: Performed By: #### G IPANEL ####[facility] Kdndyosatq[address] [place], [place] [address]Dr. Ivette [facility] ECOLI GI PANEL DIARRHEAGEN IC E.COLI / SHIGELLA Normal [facility] Comment on above: Performed By: #### G IPANEL ####[facility] Lkrsnyorlp[address] [place], [place] [address]Dr. [facility] INFO SEE BELOW Normal [facility] Comment on above: Result Comment: EAEC - Enteroaggregative E. Coli EPEC- Enteropathogenic E. Coli ETEC- Enterotoxigenic E. Coli lt/st STEC- Shigella-like toxin-producing E. Coli stx1/stx2 EIEC- Shigella/Enteroinvasive E. Coli Performed By: #### G IPANEL ####[facility] [address]nz[address] [place] [address]Dr. Ivette Hernandez GIPNLHD PARASITES GI PANEL PARASITES Normal [facility] Comment on above: Performed By: #### G IPANEL ####[facility] Lfioecthzl4[address] [place] [address]Dr. Ivette Hernandez GIPNLHD VIRUS GI PANEL VIRUSES Normal [facility] Comment on above: Performed By: #### G IPANEL ####[facility] Fisvwjdmea[address] [place], [place] [address]Dr. Cherjun Hernandez Norovirus GI/GII Not detected Normal NOT DETECTED [facility] Comment on above: Performed By: #### G IPANEL ####[facility] Misaqqdfoe[address] [place], [place] [address]Dr. Ivette Hernandez P. Shigelloides Not detected Normal NOT DETECTED [facility] Comment on above: Performed By: #### G IPANEL ####[facility] Uudmpqkfai[address] [place], [place] [address]Dr. Cherjun Hernandez Rotavirus A Not detected Normal NOT DETECTED [facility] Comment on above: Performed By: #### G IPANEL ####[facility] Vyrkcyewvc[address] [place], [place] [address]Dr. Ivette Hernandez Salmonella Not detected Normal NOT DETECTED [facility] Comment on above: Performed By: #### G IPANEL ####[facility] Ludbygluab[address] [place], [place] [address]Dr. Ivette Hernandez Sapovirus Not detected Normal NOT DETECTED [facility] Comment on above: Performed By: #### G IPANEL ####[facility] Ofuekefdnw[address] [place], [place] [address]Dr. Ivette Hernandez STEC Not detected Normal NOT DETECTED [facility] Comment on above: Performed By: #### G IPANEL ####[facility] Vzbhrmafze[address] [place], [place] [address]Dr. Ivette Hernandez Vibrio Not detected Normal NOT DETECTED [facility] Comment on above: Performed By: #### G IPANEL ####[facility] Txzybbqybv[address] [place], [place] [address]Dr. Ivette Hernandez Vibrio Cholera Not detected Normal NOT DETECTED [facility] Comment on above: Performed By: #### G IPANEL ####[facility] Pahjlrsbbc[address] [place], [place] [address]Dr. Ivette Hernandez Y. Enterocolitica Not detected Normal NOT DETECTED [facility] Comment on above: Performed By: #### G IPANEL ####[facility] Ucbdytbmyn[address] [place], [place] [address]Dr. Ivette Hernandez OCC BLD IMMUNO SCREENon 02-01 OCCULT BLOOD Negative Normal NEGATIVE [facility] Comment on above: Performed By: #### O BSCRN ####[facility] Syyvqhhibu[address] [place], [place] [address]DrJesse Hernandez PROF 14(COMP METB)on 022 Albumin [Mass/Vol] 2.4 g/dL Critically low 3.4-5.0 [facility] Comment on above: Performed By: #### C MP ####[facility] Ifrvizimqq[address] [place], [place] [address]Dr. Ivette Hernandez Albumin/Globulin [Mass ratio] 0.6 {ratio} Normal [facility] Comment on above: Performed By: #### C MP ####[facility] Vnzruoizib[address] [place], [place] [address]Dr. Ivette Hernandez ALP [Catalytic activity/Vol] 68 U/L Normal 46-116 [facility] Comment on above: Performed By: #### C MP ####[facility] Jdqvumzyxa[address] [place], [place] [address]Dr. Ivette Hernandez ALT [Catalytic activity/Vol] 12 U/L Critically low 14-59 [facility] Comment on above: Performed By: #### C MP ####[facility] Eexvoswbyt[address] [place], [place] [address]DrJesse Hernandez Anion gap [Moles/Vol] 10.3 mmol/L Normal [facility] Comment on above: Performed By: #### C MP ####[facility] Zixlnfislg[address] [place], [place] [address]Dr. Ivette Hernandez AST [Catalytic activity/Vol] 15 U/L Normal 15-37 [facility] Comment on above: Performed By: #### C MP ####[facility] [address]mcdcjc[address] [place] [address]Dr. Cherjun David Bilirubin [Mass/Vol] 0.4 mg/dL Normal 0.2-1.0 [facility] Comment on above: Performed By: #### C MP ####[facility] Tddbaxzdul[address] [place], [place] [address]Dr. Ivette Hernandez Calcium [Mass/Vol] 7.5 mg/dL Critically low 8.5-10.1 Th [facility] Comment on above: Performed By: #### C MP ####[facility] Gifdgtlpqj98[address] [place], [place] [address]Dr. Ivette Hernandez Chloride [Moles/Vol] 102 mmol/L Normal 98-107 [facility] Comment on above: Performed By: #### C MP ####[facility] Sqoggluxxi[address] [place], [place] [address]Dr. Ivette Hernandez CO2 [Moles/Vol] 33.8 mmol/L Critically high 21.0-32.0 [facility] Comment on above: Performed By: #### C MP ####[facility] Ghjccmfwie[address] [place], [place] [address]Dr. Ivette Hernandez Creatinine [Mass/Vol] 1.35 mg/dL Critically high 0.55-1.02 [facility] Comment on above: Performed By: #### C MP ####[facility] Dvpntzhimd[address] [place], [place] [address]Dr. Ivette Hernandez EGFR-AF ANGUILLAN 47 mL/min/1.73m2 Critically low >=60 [facility] Comment on above: Performed By: #### C MP ####[facility] Tunvsvtmtq[address] [place], [place] [address]Dr. Ivette Hernandez EGFR-NON AF ANGUILLAN 38 mL/min/1.73m2 Critically low >=60 [facility] Comment on above: Performed By: #### C MP ####[facility] Mjzqpzfsca[address] [place], [place] [address]Dr. Ivette Hernandez Globulin (S) [Mass/Vol] 4.0 g/dL Normal [facility] Comment on above: Performed By: #### C MP ####[facility] Ancvrrakuw[address] [place], [place] [address]Dr. Ivette Hernandez Glucose [Mass/Vol] 142 mg/dL Critically high 74-106 [facility] Comment on above: Performed By: #### C MP ####[facility] Mchmdcitxr[address] [place], [place] [address]Dr. Ivette David Potassium [Moles/Vol] 3.1 mmol/L Critically low 3.5-5.1 [facility] Comment on above: Performed By: #### C MP ####[facility] Bwqmgxckem[address] [place], [place] [address]Dr. Ivette David Protein [Mass/Vol] 6.4 g/dL Normal 6.4-8.2 [facility] Comment on above: Performed By: #### C MP ####[facility] Povmxanqch254[address] [place], [place] [address]Dr. Ivette David Sodium [Moles/Vol] 143 mmol/L Normal 136-145 [facility] Comment on above: Performed By: #### C MP ####[facility] Cpzxqqwerd[address] [place], [place] [address]Dr. Ivette David Urea nitrogen [Mass/Vol] 32.0 mg/dL Critically high 7.0-18.0 [facility] Comment on above: Performed By: #### C MP ####[facility] Xrlrtpckds[address] [place], [place] [address]Dr. Ivette David Urea nitrogen/Creatinine [Mass ratio] 23.7 mg/mg Normal [facility] Comment on above: Performed By: #### C MP ####[facility] Uhevnxkyod[address] [place], [place] [address]Dr. Ivette David CBC AUTO DIFFon 02-26-2022 BASO # 0.0 103/ul Normal 0.0-0.1 [facility] Comment on above: Performed By: #### C BC ####[facility] U[address]cgtfltj[address] [place], [place] [address]Dr. Ivette Hernandez Basophils/100 WBC (Bld) 0.0 % Critically low 0.2-2.0 [facility] Comment on above: Performed By: #### C BC ####[facility] [address]fmwb[address] [place] [address]Dr. Ivette Hernandez EO # 0.0 103/ul Normal 0.0-0.7 [facility] Comment on above: Performed By: #### C BC ####[facility] [address]emklrvii79[address] [place] [address]Dr. Ivette Hernandez Eosinophils/100 WBC (Bld) 0.0 % Critically low 0.9-7.0 [facility] Comment on above: Performed By: #### C BC ####[facility] [address]ues[address] [place] [address]Dr. Ivette Hernandez Erythrocyte distribution width (RBC) [Ratio] 13.9 % Normal 11.0-15.0 [facility] Comment on above: Performed By: #### C BC ####[facility] [address]zspxflq[address] [place], [place] [address]Dr. Ivette Hernandez Hematocrit (Bld) [Volume fraction] 25.9 % Critically low 36.0-48.0 [facility] Comment on above: Performed By: #### C BC ####[facility] [address]ufgvjxrye[address] [place] [address]Dr. Ivette Hernandez Hemoglobin (Bld) [Mass/Vol] 8.2 g/dL Critically low 12.0-16.0 [facility] Comment on above: Performed By: #### C BC ####[facility] [address]fl[address] [place] [address]Dr. Ivette Hernandez IG # 0.05 10e3/ul Critically high 0.00-0.03 [facility] Comment on above: Performed By: #### C BC ####[facility] Emxoawttrx4[address] [place] [address]Dr. Ivette Hernandez IG % 0.9 % Critically high 0.0-0.5 [facility] Comment on above: Performed By: #### C BC ####[facility] [address] [place], [place] [address]Iz. Ivette David LYMPH # 1.0 103/ul Critically low 1.2-3.8 [facility] Comment on above: Performed By: #### C BC ####[facility] Hzwkypyxgl3916 [place], [place] [address]Yw. Ivette David Lymphocytes/100 WBC (Bld) 17.4 % Critically low 20.5-60.0 [facility] Comment on above: Performed By: #### C BC ####[facility] [address]uk[address] [place] [id number]. Cherjun Hernandez MANUAL DIFF REQ NO Normal [facility] Comment on above: Performed By: #### C BC ####[facility] Wdqgeskchv39[address] [place] [id number]. Ivette David MCH (RBC) [Entitic mass] 28.3 pg Normal 26.7-34.0 [facility] Comment on above: Performed By: #### C BC ####[facility] [address]ioxwibmdy88[address] [place] [id number]. Ivette David MCHC (RBC) [Mass/Vol] 31.7 g/dL Normal 29.9-35.2 [facility] Comment on above: Performed By: #### C BC ####[facility] Kcsintmxqu54[address] [place] [id number]. Ivette David MCV (RBC) [Entitic vol] 89.3 fL Normal 81.0-99.0 [facility] Comment on above: Performed By: #### C BC ####[facility] Flwvkdyxab75[address] [place] [id number]. Ivette David MONO # 0.2 103/ul Critically low 0.3-0.8 [facility] Comment on above: Performed By: #### C BC ####[facility] Nlrhqndldl5[address] [place] [id number]. Cherjun Hernandez Monocytes/100 WBC (Bld) 3.6 % Normal 1.7-12.0 [facility] Comment on above: Performed By: #### C BC ####[facility] Xgxpioduao7476 [place] [id number]. Ivette Hernandez NEUT # 4.6 103/ul Normal 1.4-6.5 [facility] Comment on above: Performed By: #### C BC ####[facility] Xiejqteuuf55[address] [place] [id number]. Ivette Hernandez Neutrophils/100 WBC (Bld) 78.1 % Critically high 43.0-75.0 [facility] Comment on above: Performed By: #### C BC ####[facility] Qzrqsypbpy4564 [place] [id number]. Ivette Hernandez Platelet mean volume (Bld) [Entitic vol] 9.5 fL Normal 9.5-13.5 [facility] Comment on above: Performed By: #### C BC ####[facility] Bfbqnqgwwi93[address] [place] [id number]. Ivette Hernandez PLT 195 103/ul Normal 150-450 [facility] Comment on above: Performed By: #### C BC ####[facility] Dvozkrdxtx4144 [place] [id number]. Ivette Hernandez RBC 2.90 106/ul Critically low 4.20-5.40 [facility] Comment on above: Performed By: #### C BC ####[facility] Kwdxpddant77[address] [place] [id number]. Ivette Hernandez WBC 5.8 103/ul Normal 4.0-11.0 [facility] Comment on above: Performed By: #### C BC ####[facility] Wkuxfpcapk4[address] [place] [id number]. Ivette Hernandez ECHOCARDIO M/2D COMPLETEon 1 ECHOCARDIO M/2D COMPLETE Normal [facility] PROF 14(COMP METB)on 022 Albumin [Mass/Vol] 2.3 g/dL Critically low 3.4-5.0 Th e [facility] Comment on above: Performed By: #### C MP ####[facility] [address]iorxpmqsb[address] [place], [place] [address]Dr. Ivette Hernandez Albumin/Globulin [Mass ratio] 0.6 {ratio} Normal [facility] Comment on above: Performed By: #### C MP ####[facility] Qspejrlrux94[address] [place] [address]Dr. Ivette David ALP [Catalytic activity/Vol] 67 U/L Normal 46-116 [facility] Comment on above: Performed By: #### C MP ####[facility] Llqqdeddvm3678 [place] [address]Dr. Ivette Hernandez ALT [Catalytic activity/Vol] 15 U/L Normal 14-59 [facility] Comment on above: Performed By: #### C MP ####[facility] Tfpkidegjk[address] [place], [place] [address]Dr. Ivette Hernandez Anion gap [Moles/Vol] 7.6 mmol/L Normal [facility] Comment on above: Performed By: #### C MP ####[facility] B[address]dhkrke[address] [place], [place] [address]Dr. Ivette Hernandez AST [Catalytic activity/Vol] 12 U/L Critically low 15-37 [facility] Comment on above: Performed By: #### C MP ####[facility] [address]tosj[address]mux[address] [place], [place] [address]Dr. Ivette Hernandez Bilirubin [Mass/Vol] 0.3 mg/dL Normal 0.2-1.0 [facility] Comment on above: Performed By: #### C MP ####[facility] [address]msy[address]msph[address] [place], [place] [address]Dr. Ivette Hernandez Calcium [Mass/Vol] 6.3 mg/dL Critically low 8.5-10.1 Th [facility] Comment on above: Performed By: #### C MP ####[facility] Oojfgkzxqj[address] [place], [place] [address]Dr. Ivette Hernandez Chloride [Moles/Vol] 104 mmol/L Normal 98-107 [facility] Comment on above: Performed By: #### C MP ####[facility] Qzodylhhet[address] [place], [place] [address]Dr. Ivette Hernandez CO2 [Moles/Vol] 34.8 mmol/L Critically high 21.0-32.0 [facility] Comment on above: Performed By: #### C MP ####[facility] Lgjqbmxjvw4141 [place] [id number]. Ivette Hernandez Creatinine [Mass/Vol] 1.30 mg/dL Critically high 0.55-1.02 [facility] Comment on above: Performed By: #### C MP ####[facility] Jtmzmmdhvm20[address] [place] [id number]. Ivette Hernandez EGFR-AF ANGUILLAN 49 mL/min/1.73m2 Critically low >=60 [facility] Comment on above: Performed By: #### C MP ####[facility] Reaf[address]ukgmt[address] [place] [id number]. Ivette David EGFR-NON AF ANGUILLAN 40 mL/min/1.73m2 Critically low >=60 [facility] Comment on above: Performed By: #### C MP ####[facility] Fngbqjtzuz7[address] [place] [address]Dr. vIette David Globulin (S) [Mass/Vol] 4.1 g/dL Normal [facility] Comment on above: Performed By: #### C MP ####[facility] Wafjamisxx3290 [place] [id number]. Ivette Hernandez Glucose [Mass/Vol] 130 mg/dL Critically high 74-106 T [facility] Comment on above: Performed By: #### C MP ####[facility] Xyhenkklpe6151 [place] [id number]. Ivette David Potassium [Moles/Vol] 3.4 mmol/L Critically low 3.5-5.1 [facility] Comment on above: Performed By: #### C MP ####[facility] Ljvfqxlxiq6254 [place] [id number]. Ivette David Protein [Mass/Vol] 6.4 g/dL Normal 6.4-8.2 The [facility] Comment on above: Performed By: #### C MP ####[facility] Goffrhharj[address] [place] [id number]. Ivette David Sodium [Moles/Vol] 143 mmol/L Normal 136-145 [facility] Comment on above: Performed By: #### C MP ####[facility] Njfkjxonpm[address] [place], [place] [address]Dr. Ivette Hernandez Urea nitrogen [Mass/Vol] 24.0 mg/dL Critically high 7.0-18.0 [facility] Comment on above: Performed By: #### C MP ####[facility] Xbkklngdhc[address] [place], [place] [address]Dr. Ivette Hernandez Urea nitrogen/Creatinine [Mass ratio] 18.5 mg/mg Normal [facility] Comment on above: Performed By: #### C MP ####[facility] Xcgqbgtpqm[address] [place], [place] [address]Dr. Ivette Hernandez US KIDNEYS BLADDERon 022 US KIDNEYS BLADDER Normal The [facility] BNPon 02-25-2022 Natriuretic peptide B (Bld) [Mass/Vol] 73214.0 pg/mL Critically high <=900.0 [facility] Comment on above: Performed By: #### M G, BMP, BNP ####[facility] Gwlwgvczhz[address] [place], [place] [address]Dr. Ivette Hernandez CBC AUTO DIFFon 02-25-2022 BASO # 0.0 103/ul Normal 0.0-0.1 [facility] Comment on above: Performed By: #### C BC ####[facility] Sbhsabepen[address] [place], [place] [address]Dr. Cherjun Hernandez Basophils/100 WBC (Bld) 0.4 % Normal 0.2-2.0 [facility] Comment on above: Performed By: #### C BC ####[facility] Dyxutmmxjk[address] [place], [place] [address]Dr. Ivette David EO # 0.1 103/ul Normal 0.0-0.7 [facility] Comment on above: Performed By: #### C BC ####[facility] Bvgkayxxom[address] [place], [place] [address]Dr. Ivette David Eosinophils/100 WBC (Bld) 0.8 % Critically low 0.9-7.0 [facility] Comment on above: Performed By: #### C BC ####[facility] Uvapspxwxl[address] [place] [address]Dr. Ivette Hernandez Erythrocyte distribution width (RBC) [Ratio] 14.3 % Normal 11.0-15.0 [facility] Comment on above: Performed By: #### C BC ####[facility] Rqvzpzwn[address] [place], [place] [address]Dr. Ivette Hernandez Hematocrit (Bld) [Volume fraction] 29.3 % Critically low 36.0-48.0 [facility] Comment on above: Performed By: #### C BC ####[facility] Dzlwzjnkwc[address] [place], [place] [address]Dr. Ivette Hernandez Hemoglobin (Bld) [Mass/Vol] 9.2 g/dL Critically low 12.0-16.0 [facility] Comment on above: Performed By: #### C BC ####[facility] Peupskxkkh[address] [place], [place] [address]Dr. Ivette Hernandez IG # 0.04 10e3/ul Critically high 0.00-0.03 [facility] Comment on above: Performed By: #### C BC ####[facility] Bcjikzgwye[address] [place], [place] [address]Dr. Ivette Hernandez IG % 0.4 % Normal 0.0-0.5 [facility] Comment on above: Performed By: #### C BC ####[facility] Qfewdzmeqg[address] [place], [place] [address]Dr. Ivette Hernandez LYMPH # 1.9 103/ul Normal 1.2-3.8 [facility] Comment on above: Performed By: #### C BC ####[facility] Boqgmlhfkb[address] [place], [place] [address]Dr. Ivette Hernandez Lymphocytes/100 WBC (Bld) 17.5 % Critically low 20.5-60.0 [facility] Comment on above: Performed By: #### C BC ####[facility] Lurtohjnrq[address] [place], [place] [address]Dr. Ivette Hernandez MANUAL DIFF REQ NO Normal [facility] Comment on above: Performed By: #### C BC ####[facility] [address]ioxlehui[address] [place] [id number]. Ivette David MCH (RBC) [Entitic mass] 28.6 pg Normal 26.7-34.0 [facility] Comment on above: Performed By: #### C BC ####[facility] Wjmbbjzdnf64[address] [place] [id number]. Ivette David MCHC (RBC) [Mass/Vol] 31.4 g/dL Normal 29.9-35.2 [facility] Comment on above: Performed By: #### C BC ####[facility] Nlpsolhxol4214 [place] [address]Dr. Ivette David MCV (RBC) [Entitic vol] 91.0 fL Normal 81.0-99.0 [facility] Comment on above: Performed By: #### C BC ####[facility] Xhpbdgvbas[address] [place], [place] [address]Dr. Ivette Hernandez MONO # 0.6 103/ul Normal 0.3-0.8 [facility] Comment on above: Performed By: #### C BC ####[facility] Kjfcfaseiy[address] [place], [place] [address]Dr. Cherjun Hernandez Monocytes/100 WBC (Bld) 5.4 % Normal 1.7-12.0 [facility] Comment on above: Performed By: #### C BC ####[facility] Eqycejulop[address] [place], [place] [address]Dr. Ivette Hernandez NEUT # 8.1 103/ul Critically high 1.4-6.5 [facility] Comment on above: Performed By: #### C BC ####[facility] Ifpvfvzhra[address] [place], [place] [address]Dr. Ivette Hernandez Neutrophils/100 WBC (Bld) 75.5 % Critically high 43.0-75.0 [facility] Comment on above: Performed By: #### C BC ####[facility] Xyxeamdbxo9078 [place] [address]Dr. Ivette Hernandez Platelet mean volume (Bld) [Entitic vol] 9.7 fL Normal 9.5-13.5 [facility] Comment on above: Performed By: #### C BC ####[facility] Hquejexccv90[address] [place] [address]Dr. Ivette Hernandez PLT 242 103/ul Normal 150-450 [facility] Comment on above: Performed By: #### C BC ####[facility] Gfdzytjmte7655 [place] [id number]. Ivette Hernandez RBC 3.22 106/ul Critically low 4.20-5.40 [facility] Comment on above: Performed By: #### C BC ####[facility] Idguoiyxwo6120 [place] [address]Dr. Ivette Hernandez WBC 10.8 103/ul Normal 4.0-11.0 [facility] Comment on above: Performed By: #### C BC ####[facility] Wqixieh[address] [place], [place] [address]Dr. Ivette Hernandez MAGNESIUMon 02-25-2022 Magnesium [Mass/Vol] 1.3 mg/dL Critically low 1.8-2.4 [facility] Comment on above: Performed By: #### M MYRNA Aranda, BNP ####[facility] Boacksopxv[address] [place], [place] [address]Dr. Cherjun Hernandez POINT OF CARE GLUCOSEon 02-01 Glucose [Mass/Vol] 191 mg/dL Critically high 74-106 [facility] Comment on above: Performed By: #### P OCGLUC ####[facility] Zncepfhphu[address] [place], [place] [address]Dr. Ivette Hernandez PROF CHEM 8 (BAS METB)on Anion gap [Moles/Vol] 7.7 mmol/L Normal [facility] Comment on above: Performed By: #### M Rosi BMP, BNP ####[facility] Tgyawdxzfa[address] [place], [place] [address]Dr. Ivette Hernandez Calcium [Mass/Vol] 6.4 mg/dL Critically low 8.5-10.1 [facility] Comment on above: Performed By: #### M Rosi BMP, BNP ####[facility] Xcrumcizil6408 [place] [address]Dr. Ivette Hernandez Chloride [Moles/Vol] 105 mmol/L Normal 98-107 [facility] Comment on above: Performed By: #### Chris Aranda BMP, BNP ####[facility] Nbrsezduvf750[address] [place] [address]Dr. Ivette Hernandez CO2 [Moles/Vol] 37.4 mmol/L Critically high 21.0-32.0 [facility] Comment on above: Performed By: #### Chris Aranda, BMP, BNP ####[facility] Wbjhnlikqi6917 [place] [address]Dr. Ivette Hernandez Creatinine [Mass/Vol] 1.41 mg/dL Critically high 0.55-1.02 [facility] Comment on above: Performed By: #### Chris Aranda, BMP, BNP ####[facility] Utuddkbxmr[address] [place], [place] [address]Dr. Ivette Hernandez EGFR-AF ANGUILLAN 44 mL/min/1.73m2 Critically low >=60 [facility] Comment on above: Performed By: #### Chris Aranda BMP, BNP ####[facility] Bgvbvnxdvk8511 [place] [address]Dr. Ivette Hernandez EGFR-NON AF ANGUILLAN 37 mL/min/1.73m2 Critically low >=60 [facility] Comment on above: Performed By: #### Chris Aranda, BMP, BNP ####[facility] Qookikefcd6519 [place] [address]Dr. Ivette Hernandez Glucose [Mass/Vol] 132 mg/dL Critically high 74-106 [facility] Comment on above: Performed By: #### Chris Aranda, BMP, BNP ####[facility] Djmwqyvmnh7816 [place] [address]Dr. Ivette Hernandez Potassium [Moles/Vol] 3.1 mmol/L Critically low 3.5-5.1 [facility] Comment on above: Performed By: #### Chris Aranda, BMP, BNP ####[facility] Wpsqpveamk0441 [place] [address]Dr. Ivette Hernandez Sodium [Moles/Vol] 147 mmol/L Critically high 136-145 T [facility] Comment on above: Performed By: #### M G, BMP, BNP ####[facility] Bcidlimphz3159 [place] [address]Dr. Ivette Hernandez Urea nitrogen [Mass/Vol] 15.0 mg/dL Normal 7.0-18.0 [facility] Comment on above: Performed By: #### M G, BMP, BNP ####[facility] Prcypzjshg6592 [place] [address]Dr. Ivette Hernandez Urea nitrogen/Creatinine [Mass ratio] 10.6 mg/mg Normal [facility] Comment on above: Performed By: #### M G, BMP, BNP ####[facility] Dhsrzwrmde80[address] [place] [address]Dr. Ivette Hernandez TROPONIN, HIGH SENSITIVITYon 02-25-2022 HSTROP 15.5 pg/mL Normal 4.0-51.3 [facility] Comment on above: Result Comment: CUT- OFF POINTS HAVE BEEN ESTABLISHED BASED ON THE FOURTH UNIVERSAL DEFINITIONS OF MYOCARDIALINFARCTION. THE UPPER REFERENCE LIMIT (URL) OF TROPONIN, DEFINED THE 99TH PERCENTILE OFcTnI DISTRIBUTION IN A REFERENCE POPULATION, HAS BEEN CONFIRMED THE DECISION THRESHOLDFOR MD DIAGNOSIS. Performed By: #### H STROPN ####[facility] Nrhmbskpiu25[address] [place] [address]Dr. Ivette Hernandez HSTROP 17.6 pg/mL Normal 4.0-51.3 [facility] Comment on above: Result Comment: CUT- OFF POINTS HAVE BEEN ESTABLISHED BASED ON THE FOURTH UNIVERSAL DEFINITIONS OF MYOCARDIALINFARCTION. THE UPPER REFERENCE LIMIT (URL) OF TROPONIN, DEFINED THE 99TH PERCENTILE OFcTnI DISTRIBUTION IN A REFERENCE POPULATION, HAS BEEN CONFIRMED THE DECISION THRESHOLDFOR MD DIAGNOSIS. Performed By: #### H STROPN ####[facility] Gmzjsqjcgs18[address] [place] [address]Dr. Ivette Hernandez BNPon 02-24-2022 Natriuretic peptide B (Bld) [Mass/Vol] 22110.0 pg/mL Critically high <=900.0 [facility] Comment on above: Performed By: #### B SOLE CUTTER, HSTROPN, CMP ####[facility] Rpnberbzky38[address] [place] [id number]. Ivette Hernandez CBC AUTO DIFFon 02-24-2022 BASO # 0.1 103/ul Normal 0.0-0.1 [facility] Comment on above: Performed By: #### C BC ####[facility] Fketbkpy[address] [place], [place] [address]Dr. Cherjun Hernandez Basophils/100 WBC (Bld) 0.5 % Normal 0.2-2.0 [facility] Comment on above: Performed By: #### C BC ####[facility] Wgsxratfuo[address] [place], [place] [address]Dr. Cherjun Hernandez EO # 0.2 103/ul Normal 0.0-0.7 [facility] Comment on above: Performed By: #### C BC ####[facility] Wlhaaaikwg[address] [place], [place] [address]Dr. Cherjun Hernandez Eosinophils/100 WBC (Bld) 2.3 % Normal 0.9-7.0 [facility] Comment on above: Performed By: #### C BC ####[facility] Ucveyhfbox[address] [place], [place] [address]Dr. Cherjun Hernandez Erythrocyte distribution width (RBC) [Ratio] 14.2 % Normal 11.0-15.0 [facility] Comment on above: Performed By: #### C BC ####[facility] D[address]oyklcdfz[address] [place], [place] [address]Dr. Ivette Hernandez Hematocrit (Bld) [Volume fraction] 30.2 % Critically low 36.0-48.0 [facility] Comment on above: Performed By: #### C BC ####[facility] Ysqxmosmrf[address] [place], [place] [address]Dr. Cherjun Hernandez Hemoglobin (Bld) [Mass/Vol] 9.3 g/dL Critically low 12.0-16.0 [facility] Comment on above: Performed By: #### C BC ####[facility] Rkcty[address]gcpa[address] [place], [place] [address]Dr. Ivette Hernandez IG # 0.04 10e3/ul Critically high 0.00-0.03 [facility] Comment on above: Performed By: #### C BC ####[facility] Uboenyhtio7208 [place] [id number]. Cherjun Hernandez IG % 0.4 % Normal 0.0-0.5 [facility] Comment on above: Performed By: #### C BC ####[facility] Ybaszxdgdv1612 [place] [id number]. Ivette David LYMPH # 2.6 103/ul Normal 1.2-3.8 [facility] Comment on above: Performed By: #### C BC ####[facility] Gkxfwlfzwr2069 [place] [address]Dr. Cherjun Hernandez Lymphocytes/100 WBC (Bld) 27.1 % Normal 20.5-60.0 [facility] Comment on above: Performed By: #### C BC ####[facility] Bbzyqwdpqd[address] [place], [place] [address]Dr. Ivette Hernandez MANUAL DIFF REQ NO Normal [facility] Comment on above: Performed By: #### C BC ####[facility] Uywprewvlt9062 [place] [address]Dr. Ivette David MCH (RBC) [Entitic mass] 27.8 pg Normal 26.7-34.0 [facility] Comment on above: Performed By: #### C BC ####[facility] Gcgycyruou3417 [place] [address]Dr. Ivette David MCHC (RBC) [Mass/Vol] 30.8 g/dL Normal 29.9-35.2 [facility] Comment on above: Performed By: #### C BC ####[facility] Sygpgdtjxs[address] [place], [place] [address]Dr. Ivette David MCV (RBC) [Entitic vol] 90.4 fL Normal 81.0-99.0 [facility] Comment on above: Performed By: #### C BC ####[facility] Sqiwemtxbt[address] [place], [place] [address]Dr. Ivette Hernandez MONO # 0.6 103/ul Normal 0.3-0.8 [facility] Comment on above: Performed By: #### C BC ####[facility] Dlokxjspuv6462 [place] [id number]. Ivette Hernandez Monocytes/100 WBC (Bld) 6.1 % Normal 1.7-12.0 [facility] Comment on above: Performed By: #### C BC ####[facility] Fasqtwuwpx6015 [place] [id number]. Ivette Hernandez NEUT # 6.1 103/ul Normal 1.4-6.5 [facility] Comment on above: Performed By: #### C BC ####[facility] Arvogppivj7636 [place] [id number]. Ivette Hernandez Neutrophils/100 WBC (Bld) 63.6 % Normal 43.0-75.0 [facility] Comment on above: Performed By: #### C BC ####[facility] Vtftgqownv9308 [place] [id number]. Ivette Hernandez Platelet mean volume (Bld) [Entitic vol] 9.2 fL Critically low 9.5-13.5 [facility] Comment on above: Performed By: #### C BC ####[facility] Lrcggeeohy9955 [place] [id number]. Ivette Hernandez PLT 267 103/ul Normal 150-450 [facility] Comment on above: Performed By: #### C BC ####[facility] Lsbdedhmkg9823 [place] [id number]. Ivette Hernandez RBC 3.34 106/ul Critically low 4.20-5.40 [facility] Comment on above: Performed By: #### C BC ####[facility] Yslweclsgd7946 [place] [id number]. Ivette Hernandez WBC 9.6 103/ul Normal 4.0-11.0 [facility] Comment on above: Performed By: #### C BC ####[facility] Hhhohawcru28[address] [place] [id number]. Ivette Hernandez [facility]01 SARS-CoV-2 (COVID-19) RNA MARRY+probe Ql (Unsp spec) Not detected Normal NOT DETECTED [facility] Comment on above: Result Comment: When [...] for this test is supported by the [place] of Health and Human Service's declaration that [...] be used). Performed By: #### C VDTBH ####[facility] Dpntlnmqlx5108 [place] [address]Dr. Ivette Hernandez IRON AND TIBCon 02-24-2022 % SATURATION 13.8 % Normal [facility] Comment on above: Performed By: #### V ITAD, FETIBC, B12FOL ####[facility] Hnrlldqkwl9950 [place] [address]Dr. Ivette Hernandez Iron [Mass/Vol] 26.0 ug/dL Critically low 50.0-170.0 [facility] Comment on above: Performed By: #### V ITAD, FETIBC, B12FOL ####[facility] Hwnykfoiep5859 [place] [id number]. Ivette Hernandez TIBC DIRECT 188.0 ug/dL Critically low 250.0-450.0 [facility] Comment on above: Performed By: #### V ITAD, FETIBC, B12FOL ####[facility] Wupgvnaewb69[address] [place] [address]Dr. Ivette Hernandez PROF 14(COMP METB)on 022 Albumin [Mass/Vol] 2.6 g/dL Critically low 3.4-5.0 [facility] Comment on above: Performed By: #### B SOLE CUTTER, HSTROPN, CMP ####[facility] Gsqzkqxqgt8295 [place] [address]Dr. Ivette Hernandez Albumin/Globulin [Mass ratio] 0.6 {ratio} Normal [facility] Comment on above: Performed By: #### B SOLE CUTTER, HSTROPN, CMP ####[facility] Jurczvzmbi0701 [place] [address]Dr. Ivette Hernandez ALP [Catalytic activity/Vol] 79 U/L Normal 46-116 [facility] Comment on above: Performed By: #### B SOLE CUTTER, HSTROPN, CMP ####[facility] Wlrteujiax[address] [place], [place] [address]Dr. Ivette Hernandez ALT [Catalytic activity/Vol] 18 U/L Normal 14-59 [facility] Comment on above: Performed By: #### B SOLE CUTTER, HSTROPN, CMP ####[facility] Ubfjwsjeic[address] [place], [place] [address]Dr. Ivette Hernandez Anion gap [Moles/Vol] 7.4 mmol/L Normal [facility] Comment on above: Performed By: #### B SOLE CUTTER, HSTROPN, CMP ####[facility] Jalmgtfvtx[address] [place], [place] [address]Dr. Ivette Hernandez AST [Catalytic activity/Vol] 14 U/L Critically low 15-37 [facility] Comment on above: Performed By: #### B SOLE CUTTER, HSTROPN, CMP ####[facility] Svotgxfetd[address] [place], [place] [address]Dr. Ivette Hernandez Bilirubin [Mass/Vol] 0.4 mg/dL Normal 0.2-1.0 [facility] Comment on above: Performed By: #### B SOLE CUTTER, HSTROPN, CMP ####[facility] Najgdnyxew[address] [place], [place] [address]Dr. Ivette Hernandez Calcium [Mass/Vol] 6.3 mg/dL Critically low 8.5-10.1 Th [facility] Comment on above: Performed By: #### B SOLE CUTTER, HSTROPN, CMP ####[facility] Ngzdwdqzip7907 [place] [address]Dr. Ivette Hernandez Chloride [Moles/Vol] 108 mmol/L Critically high 98-107 [facility] Comment on above: Performed By: #### B SOLE CUTTER, HSTROPN, CMP ####[facility] Cxgtconzzr5451 [place] [address]Dr. Ivette Hernandez CO2 [Moles/Vol] 31.7 mmol/L Normal 21.0-32.0 [facility] Comment on above: Performed By: #### B SOLE CUTTER, HSTROPN, CMP ####[facility] Ryytvnkdgc0905 [place] [address]Dr. Ivette Hernandez Creatinine [Mass/Vol] 1.50 mg/dL Critically high 0.55-1.02 [facility] Comment on above: Performed By: #### B SOLE CUTTER, HSTROPN, CMP ####[facility] Kjkaauuron7[address] [place] [address]Dr. Ivette Hernandez EGFR-AF ANGUILLAN 41 mL/min/1.73m2 Critically low >=60 [facility] Comment on above: Performed By: #### B SOLE CUTTER, HSTROPN, CMP ####[facility] Jdmwxyykpy[address] [place], [place] [address]Dr. Ivette Hernandez EGFR-NON AF ANGUILLAN 34 mL/min/1.73m2 Critically low >=60 [facility] Comment on above: Performed By: #### B SOLE CUTTER, HSTROPN, CMP ####[facility] Svvtovglib9283 [place] [address]Dr. Ivette Hernandez Globulin (S) [Mass/Vol] 4.3 g/dL Normal [facility] Comment on above: Performed By: #### B SOLE CUTTER, HSTROPN, CMP ####[facility] Ocjgttrcno0394 [place] [address]Dr. Ivette Hernandez Glucose [Mass/Vol] 116 mg/dL Critically high 74-106 [facility] Comment on above: Performed By: #### B SOLE CUTTER, HSTROPN, CMP ####[facility] [address]jbboglak39[address] [place] [address]Dr. Ivette Hernandez Potassium [Moles/Vol] 3.1 mmol/L Critically low 3.5-5.1 [facility] Comment on above: Performed By: #### B SOLE CUTTER, HSTROPN, CMP ####[facility] Geegdzlugq[address] [place] [address]Dr. Ivette Hernandez Protein [Mass/Vol] 6.9 g/dL Normal 6.4-8.2 [facility] Comment on above: Performed By: #### B SOLE CUTTER, HSTROPN, CMP ####[facility] Szthcsdzkm6798 [place] [address]Dr. Ivette Hernandez Sodium [Moles/Vol] 144 mmol/L Normal 136-145 [facility] Comment on above: Performed By: #### B SOLE CUTTER, HSTROPN, CMP ####[facility] Dqbqfaiczc3099 [place] [address]Dr. Ivette Hernandez Urea nitrogen [Mass/Vol] 16.0 mg/dL Normal 7.0-18.0 [facility] Comment on above: Performed By: #### B SOLE CUTTER, HSTROPN, CMP ####[facility] Ezaybvoxuk[address] [place] [address]Dr. Ivette Hernandez Urea nitrogen/Creatinine [Mass ratio] 10.7 mg/mg Normal [facility] Comment on above: Performed By: #### B SOLE CUTTER, HSTROPN, CMP ####[facility] Vacuynnfsx[address] [place] [address]Dr. Ivette Hernandez TROPONIN, HIGH SENSITIVITYon 02-24-2022 HSTROP 20.8 pg/mL Normal 4.0-51.3 [facility] Comment on above: Result Comment: CUT- OFF POINTS HAVE BEEN ESTABLISHED BASED ON THE FOURTH UNIVERSAL DEFINITIONS OF MYOCARDIALINFARCTION. THE UPPER REFERENCE LIMIT (URL) OF TROPONIN, DEFINED THE 99TH PERCENTILE OFcTnI DISTRIBUTION IN A REFERENCE POPULATION, HAS BEEN CONFIRMED THE DECISION THRESHOLDFOR MD DIAGNOSIS. Performed By: #### B SOLE CUTTER, HSTROPN, CMP ####[facility] Hpdyjsuhyr65[address] [place] [address]Dr. Ivette Hernandez VIT B12 AND FOLATEon 022 Cobalamin (Vitamin B12) [Mass/Vol] 930.0 pg/mL Normal 193.0-986.0 [facility] Comment on above: Performed By: #### V ITAD, FETIBC, B12FOL ####[facility] Omfp[address]ldjhw64[address] [place], [place] [address]Vr. Ivette Hernandez FOLATE 22.30 ng/mL Normal 8.60-58.90 [facility] Comment on above: Performed By: #### V ITAD, FETIBC, B12FOL ####[facility] Dmuqvfngbr7041 [place], [place] [address]Jp. Ivette Hernandez VITAMIN D 25 OHon 02-24-2022 VIT D 25-OH 35.4 ng/mL Normal [facility] Comment on above: Performed By: #### V ITAD, FETIBC, B12FOL ####[facility] Ppopcyqlrj1790 [place] [id number]. Ivette Hernandez VIT D RANGES SEE BELOW Normal [facility] Comment on above: Result Comment: <20 ng/mL Vit D deficient 20 - <30 ng/mL Vit D insufficient 30 - 100 ng/mL Vit D sufficient >100 ng/mL Potential Toxicity Performed By: #### V ITAD, FETIBC, B12FOL ####[facility] Rplegvqzpl0395 [place] [id number]. Ivette Hernandez XR CHEST 1 Von 02-24-2022 XR CHEST 1 V Normal [facility] CHEMISTRYOrdered By: SYSTEM SYSTEM on 02-06-2022 Creatinine [Mass/Vol] 1.5 mg/dL High 0.5 - 1.3 mg/dL [facility] Remisol GFR/1.73 sq M.predicted among blacks MDRD (S/P/Bld) [Vol rate/Area] 41 mL/min/1.73 m2 Low >=59mL/min/ 1.73 m2 [facility] Chem S GFR/1.73 sq M.predicted among non-blacks MDRD (S/P/Bld) [Vol rate/Area] 34 mL/min/1.73 m2 Low >=59mL/min/ 1.73 m2 [facility] Chem S Covid-19 PCR ([facility])on 11-01 SARS-CoV-2 (COVID-19) RNA MARRY+probe Ql (Unsp spec) Detected Critically abnormal NOT DETECTED [facility] Comment on above: Result Comment: This test is not yet approved or cleared by the [place] FDA. When there are no FDA-approved or cleared tests available, and other criteria are met, FDA can make tests available under an emergency access mechanism called an Emergency Use Authorization (EUA). The EUA for this test is supported by the [place] of Health and Human Service's (HHS's) declaration [...] longer be used). Performed By: #### [facility] ####[facility] Ye[address]br[address] [place], [place] [address]Kt. [facility] Metabolic Pane marky 10-03-2021 Albumin [Mass/Vol] 3.3 g/dL Low 3.6-5.1 [facility] Comment on above: Performed By: #### C MP #### [facility] [address], [place] [id number] Albumin/Globulin [Mass ratio] 1.5 {ratio} Normal 1.0-2.5 [facility] Comment on above: Performed By: #### C MP #### [facility] [address], [place] [id number] ALP [Catalytic activity/Vol] 56 U/L Normal 35-119 [facility] Comment on above: Performed By: #### C MP #### [facility] [address], [place] [id number] ALT [Catalytic activity/Vol] 10 U/L Normal 6-33 [facility] Comment on above: Result Comment: 04/02 Female reference range changed. Performed By: #### C MP #### [facility] [address], [place] [id number] Anion gap [Moles/Vol] 15 mmol/L Normal 12-20 [facility] Comment on above: Result Comment: Effe ctive 05/08/2019 reference range changed. Performed By: #### C MP #### [facility] [address], [place] [id number] AST [Catalytic activity/Vol] 15 U/L Normal 9-34 [facility] Comment on above: Performed By: #### C MP #### [facility] [address], [place] [id number] BUN/CREA 15 Ratio Normal 6-22 [facility] Comment on above: Performed By: #### C MP #### [facility] [address], [place] [id number] Calcium [Mass/Vol] 6.2 mg/dL Low 8.6-10.2 [facility] Comment on above: Performed By: #### C MP #### [facility] [address], [place] [id number] Chloride [Moles/Vol] 108 mmol/L High 98-107 [facility] Comment on above: Performed By: #### C MP #### [facility] [address], [place] [id number] CO2 [Moles/Vol] 24 mmol/L Normal 20-31 [facility] Comment on above: Performed By: #### C MP #### [facility] [address], [place] [id number] Creatinine [Mass/Vol] 1.9 mg/dL High 0.6-1.4 [facility] Comment on above: Performed By: #### C MP #### [facility] [address], [place] [id number] eGFRAA 31 mL/min/1.73m2 Low >60 [facility] Comment on above: Performed By: #### C MP #### [facility] [address], [place] [id number] eGFRNAA 26 mL/min/1.73m2 Low >60 [facility] Comment on above: Performed By: #### C MP #### [facility] [address], [place] [id number] Globulin (S) [Mass/Vol] 2.2 g/dL Normal 1.9-3.7 [facility] Comment on above: Performed By: #### C MP #### [facility] [address], [place] [id number] Glucose [Mass/Vol] 107 mg/dL High 65-99 [facility] Comment on above: Result Comment: For FASTING Glucose --- ADA reference ranges: Normal 65-99 mg/dl Prediabetes 100-125 Diabetes >/= 126 Performed By: #### C MP #### [facility] [address], [place] [id number] Potassium [Moles/Vol] 4.3 mmol/L Normal 3.5-5.5 [facility] Comment on above: Performed By: #### C MP #### [facility] [address], [place] [id number] Protein [Mass/Vol] 5.5 g/dL Low 6.1-8.1 [facility] Comment on above: Performed By: #### C MP #### [facility] [address], [place] [id number] Sodium [Moles/Vol] 143 mmol/L Normal 135-146 [facility] Comment on above: Performed By: #### C MP #### [facility] [address], [place] [id number] TBIL <0.3 Normal [facility] Comment on above: Performed By: #### C MP #### [facility] [address], [place] [id number] Urea nitrogen [Mass/Vol] 29 mg/dL High 7-25 [facility] Comment on above: Performed By: #### C MP #### [facility] [address], [place] [id number] Q - B-TYPE NATRIURETIC (BNP) on 10-03-2021 Natriuretic peptide B (Bld) [Mass/Vol] 248 pg/mL High <100 [facility] Comment on above: Order Comment: [facility] performed at: Q[facility], [employer] [facility], [address] [facility], [address] [place] [address], [address], Exhibit Electrician: Chon Manzano MD [facility] Collection Date/Time: [facility] Results Received Date/Time: [facility] Reported Date/Time: Result Comment: BNP levels increase with age in the general population with the highest values seen in individuals greater than 75 years of age. Reference: J. Am. Dylan. Cardiol. 2002; 40:976-982. Performed By: #### [id number] #### [facility] [address] [place] [address] Complete Blood Counton 09-11 Erythrocyte distribution width (RBC) [Ratio] 14.3 % Normal 11.0-15.0 [facility] Comment on above: Performed By: #### C MP, CBC #### [facility] [address], [place] [id number] Hematocrit (Bld) [Volume fraction] 30.1 % Low 35.0-47.0 [facility] Comment on above: Performed By: #### C MP, CBC #### [facility] [address], [place] [id number] Hemoglobin (Bld) [Mass/Vol] 9.1 g/dL Low 11.6-15.5 [facility] Comment on above: Performed By: #### C MP, CBC #### [facility] [address], [place] [id number] MCH (RBC) [Entitic mass] 28.7 pg Normal 27.0-33.0 [facility] Comment on above: Performed By: #### C MP, CBC #### [facility] [address], [place] [id number] MCHC (RBC) [Mass/Vol] 30.2 g/dL Low 32.0-36.0 [facility] Comment on above: Performed By: #### C MP, CBC #### [facility] [address], [place] [id number] MCV (RBC) [Entitic vol] 95 fL Normal 80-100 [facility] Comment on above: Performed By: #### C MP, CBC #### [facility] [address] [place], [place] [id number] Platelet mean volume (Bld) [Entitic vol] 9.60 fL Normal 7.50-12.50 [facility] Comment on above: Performed By: #### C MP, CBC #### [facility] [address], [place] [id number] Platelets (Bld) [#/Vol] 219 10*3/uL Normal 140-400 [facility] Comment on above: Performed By: #### C MP, CBC #### [facility] [address], [place] [id number] RBC (Bld) [#/Vol] 3.17 10*6/uL Low 3.90-5.20 [facility] Comment on above: Performed By: #### C MP, CBC #### [facility] [address], [place] [id number] RDW-SD 49.8 fL Normal 37.0-50.0 [facility] Comment on above: Performed By: #### C MP, CBC #### [facility] [address], [place] [id number] WBC (Bld) [#/Vol] 11.0 10*3/uL Normal 3.8-11.0 [facility] Comment on above: Performed By: #### C MP, CBC #### [facility] [address], [place] [id number] Comprehensive Metabolic Pane [facility] 09-11-2021 Albumin [Mass/Vol] 3.4 g/dL Low 3.6-5.1 [facility] Comment on above: Performed By: #### C MP, CBC #### [facility] [address], [place] [id number] Albumin/Globulin [Mass ratio] 1.5 {ratio} Normal 1.0-2.5 [facility] Comment on above: Performed By: #### C MP, CBC #### [facility] [address], [place] [id number] ALP [Catalytic activity/Vol] 65 U/L Normal 35-119 [facility] Comment on above: Performed By: #### C MP, CBC #### [facility] [address] [place], [place] [id number] ALT [Catalytic activity/Vol] 52 U/L High 6-33 [facility] Comment on above: Result Comment: 04/02 Female reference range changed. Performed By: #### C MP, CBC #### [facility] [address] [place], [place] [id number] Anion gap [Moles/Vol] 17 mmol/L Normal 12-20 [facility] Comment on above: Result Comment: Effe ctive 05/08/2019 reference range changed. Performed By: #### C MP, CBC #### [facility] [address] [place], [place] [id number] AST [Catalytic activity/Vol] 26 U/L Normal 9-34 [facility] Comment on above: Performed By: #### C MP, CBC #### [facility] [address] [place], [place] [id number] BUN/CREA 20 Ratio Normal 6-22 [facility] Comment on above: Performed By: #### C MP, CBC #### [facility] [address] [place], [place] [id number] Calcium [Mass/Vol] 7.1 mg/dL Low 8.6-10.2 [facility] Comment on above: Performed By: #### C MP, CBC #### [facility] [address] [place], [place] [id number] Chloride [Moles/Vol] 104 mmol/L Normal 98-107 [facility] Comment on above: Performed By: #### C MP, CBC #### [facility] [address] [place] [id number] CO2 [Moles/Vol] 27 mmol/L Normal 20-31 [facility] Comment on above: Performed By: #### C MP, CBC #### [facility] [address] [place], [place] [id number] Creatinine [Mass/Vol] 1.6 mg/dL High 0.6-1.4 [facility] Comment on above: Performed By: #### C MP, CBC #### [facility] [address] [place], [place] [id number] eGFRAA 38 mL/min/1.73m2 Low >60 [facility] Comment on above: Performed By: #### C MP, CBC #### [facility] [address], [place] [id number] eGFRNAA 31 mL/min/1.73m2 Low >60 [facility] Comment on above: Performed By: #### C MP, CBC #### [facility] [address], [place] [id number] Globulin (S) [Mass/Vol] 2.3 g/dL Normal 1.9-3.7 [facility] Comment on above: Performed By: #### C MP, CBC #### [facility] [address], [place] [id number] Glucose [Mass/Vol] 216 mg/dL High 65-99 [facility] Comment on above: Result Comment: For FASTING Glucose --- ADA reference ranges: Normal 65-99 mg/dl Prediabetes 100-125 Diabetes >/= 126 Performed By: #### C MP, CBC #### [facility] [address], [place] [id number] Potassium [Moles/Vol] 4.9 mmol/L Normal 3.5-5.5 [facility] Comment on above: Performed By: #### C MP, CBC #### [facility] [address], [place] [id number] Protein [Mass/Vol] 5.7 g/dL Low 6.1-8.1 [facility] Comment on above: Performed By: #### C MP, CBC #### [facility] [address], [place] [id number] Sodium [Moles/Vol] 143 mmol/L Normal 135-146 [facility] Comment on above: Performed By: #### C MP, CBC #### [facility] [address], [place] [id number] TBIL <0.3 Normal [facility] Comment on above: Performed By: #### C MP, CBC #### [facility] [address], [place] [id number] Urea nitrogen [Mass/Vol] 33 mg/dL High 7-25 [facility] Comment on above: Performed By: #### C MP, CBC #### [facility] [address], [place] [id number] Q - B-TYPE NATRIURETIC (BNP) on 09-11-2021 Natriuretic peptide B (Bld) [Mass/Vol] 963 pg/mL High <100 [facility] Comment on above: Order Comment: [facility] performed at: [employer], [employer] [facility], [address] [facility], [address] [place], [address], Exhibit Electrician: Chon Manzano MD [facility] Collection Date/Time: [id number] [facility] Results Received Date/Time: [facility] Reported Date/Time: Result Comment: BNP levels increase with age in the general population with the highest values seen in individuals greater than 75 years of age. Reference: J. Am. Dylan. Cardiol. 2002; 40:976-982. Performed By: #### 3 [id number] #### [facility] [address] [place] [address] Complete Blood Counton 06-26 Erythrocyte distribution width (RBC) [Ratio] 14.9 % Normal 11.0-15.0 [facility] Comment on above: Performed By: #### C BC, CMP #### [facility] [address], [place] [id number] Hematocrit (Bld) [Volume fraction] 29.4 % Low 35.0-47.0 [facility] Comment on above: Performed By: #### C BC, CMP #### [facility] [address], [place] [id number] Hemoglobin (Bld) [Mass/Vol] 9.3 g/dL Low 11.6-15.5 [facility] Comment on above: Performed By: #### C BC, CMP #### [facility] [address], [place] [id number] MCH (RBC) [Entitic mass] 29.3 pg Normal 27.0-33.0 [facility] Comment on above: Performed By: #### C BC, CMP #### [facility] [address] [place], [place] [id number] MCHC (RBC) [Mass/Vol] 31.6 g/dL Low 32.0-36.0 [facility] Comment on above: Performed By: #### C BC, CMP #### [facility] [address], [place] [id number] MCV (RBC) [Entitic vol] 93 fL Normal 80-100 [facility] Comment on above: Performed By: #### C BC, CMP #### [facility] [address], [place] [id number] Platelet mean volume (Bld) [Entitic vol] 9.60 fL Normal 7.50-12.50 [facility] Comment on above: Performed By: #### C BC, CMP #### [facility] [address], [place] [id number] Platelets (Bld) [#/Vol] 228 10*3/uL Normal 140-400 [facility] Comment on above: Performed By: #### C BC, CMP #### [facility] [address], [place] [id number] RBC (Bld) [#/Vol] 3.17 10*6/uL Low 3.90-5.20 [facility] Comment on above: Performed By: #### C BC, CMP #### [facility] [address], [place] [id number] RDW-SD 51.3 fL High 37.0-50.0 [facility] Comment on above: Performed By: #### C BC, CMP #### [facility] [address], [place] [id number] WBC (Bld) [#/Vol] 7.9 10*3/uL Normal 3.8-11.0 [facility] Comment on above: Performed By: #### C BC, CMP #### [facility] [address], [place] [id number] Comprehensive Metabolic Pane marky 06-26-2021 Albumin [Mass/Vol] 4.0 g/dL Normal 3.6-5.1 [facility] Comment on above: Performed By: #### C BC, CMP #### [facility] [address] [place], [place] [id number] Albumin/Globulin [Mass ratio] 1.4 {ratio} Normal 1.0-2.5 [facility] Comment on above: Performed By: #### C BC, CMP #### [facility] [address] [place], [place] [id number] ALP [Catalytic activity/Vol] 69 U/L Normal 35-119 [facility] Comment on above: Performed By: #### C BC, CMP #### [facility] [address] [place], [place] [id number] ALT [Catalytic activity/Vol] 18 U/L Normal 6-33 [facility] Comment on above: Result Comment: 04/02 Female reference range changed. Performed By: #### C BC, CMP #### [facility] [address] [place], [place] [id number] Anion gap [Moles/Vol] 23 mmol/L High 12-20 [facility] Comment on above: Result Comment: Effe ctive 05/08/2019 reference range changed. Performed By: #### C BC, CMP #### [facility] [address] [place] [id number] AST [Catalytic activity/Vol] 18 U/L Normal 9-34 [facility] Comment on above: Performed By: #### C BC, CMP #### [facility] [address] [place] [place] [id number] BUN/CREA 21 Ratio Normal 6-22 [facility] Comment on above: Performed By: #### C BC, CMP #### [facility] [address] [place], [place] [id number] Calcium [Mass/Vol] 8.8 mg/dL Normal 8.6-10.2 [facility] Comment on above: Performed By: #### C BC, CMP #### [facility] [address] [place] [id number] Chloride [Moles/Vol] 106 mmol/L Normal 98-107 [facility] Comment on above: Performed By: #### C BC, CMP #### [facility] [address], [place] [id number] CO2 [Moles/Vol] 18 mmol/L Low 20-31 [facility] Comment on above: Performed By: #### C BC, CMP #### [facility] [address], [place] [id number] Creatinine [Mass/Vol] 2.1 mg/dL High 0.6-1.4 [facility] Comment on above: Performed By: #### C BC, CMP #### [facility] [address], [place] [id number] eGFRAA 29 mL/min/1.73m2 Low >60 [facility] Comment on above: Performed By: #### C BC, CMP #### [facility] [address], [place] [id number] eGFRNAA 24 mL/min/1.73m2 Low >60 [facility] Comment on above: Performed By: #### C BC, CMP #### [facility] [address], [place] [id number] Globulin (S) [Mass/Vol] 2.8 g/dL Normal 1.9-3.7 [facility] Comment on above: Performed By: #### C BC, CMP #### [facility] [address], [place] [id number] Glucose [Mass/Vol] 145 mg/dL High 65-99 [facility] Comment on above: Result Comment: For FASTING Glucose --- ADA reference ranges: Normal 65-99 mg/dl Prediabetes 100-125 Diabetes >/= 126 Performed By: #### C BC, CMP #### [facility] [address], [place] [id number] Potassium [Moles/Vol] 4.1 mmol/L Normal 3.5-5.5 [facility] Comment on above: Performed By: #### C BC, CMP #### [facility] [address], [place] [id number] Protein [Mass/Vol] 6.8 g/dL Normal 6.1-8.1 [facility] Comment on above: Performed By: #### C BC, CMP #### [facility] [address], [place] [id number] Sodium [Moles/Vol] 142 mmol/L Normal 135-146 [facility] Comment on above: Performed By: #### C BC, CMP #### [facility] [address], [place] [id number] TBIL <0.3 Normal [facility] Comment on above: Performed By: #### C BC, CMP #### [facility] [address], [place] [id number] Urea nitrogen [Mass/Vol] 44 mg/dL High 7-25 [facility] Comment on above: Performed By: #### C BC, CMP #### [facility] [address], [place] [id number] Complete Blood Counton 05-22 Erythrocyte distribution width (RBC) [Ratio] 14.4 % Normal 11.0-15.0 [facility] Comment on above: Performed By: #### C BC, CMP #### [facility] [address], [place] [id number] Hematocrit (Bld) [Volume fraction] 31.3 % Low 35.0-47.0 [facility] Comment on above: Performed By: #### C BC, CMP #### [facility] [address], [place] [id number] Hemoglobin (Bld) [Mass/Vol] 9.5 g/dL Low 11.6-15.5 [facility] Comment on above: Performed By: #### C BC, CMP #### [facility] [address], [place] [id number] MCH (RBC) [Entitic mass] 28.7 pg Normal 27.0-33.0 [facility] Comment on above: Performed By: #### C BC, CMP #### [facility] [address], [place] [id number] MCHC (RBC) [Mass/Vol] 30.4 g/dL Low 32.0-36.0 [facility] Comment on above: Performed By: #### C BC, CMP #### [facility] [address], [place] [id number] MCV (RBC) [Entitic vol] 95 fL Normal 80-100 [facility] Comment on above: Performed By: #### C BC, CMP #### [facility] [address], [place] [id number] Platelet mean volume (Bld) [Entitic vol] 9.90 fL Normal 7.50-12.50 [facility] Comment on above: Performed By: #### C BC, CMP #### [facility] [address], [place] [id number] Platelets (Bld) [#/Vol] 275 10*3/uL Normal 140-400 [facility] Comment on above: Performed By: #### C BC, CMP #### [facility] [address], [place] [id number] RBC (Bld) [#/Vol] 3.31 10*6/uL Low 3.90-5.20 [facility] Comment on above: Performed By: #### C BC, CMP #### [facility] [address], [place] [id number] RDW-SD 49.4 fL Normal 37.0-50.0 [facility] Comment on above: Performed By: #### C BC, CMP #### [facility] [address], [place] [id number] WBC (Bld) [#/Vol] 11.2 10*3/uL High 3.8-11.0 [facility] Comment on above: Performed By: #### C BC, CMP #### [facility] [address], [place] [id number] Comprehensive Metabolic Pane marky 05-22-2021 Albumin [Mass/Vol] 3.9 g/dL Normal 3.6-5.1 [facility] Comment on above: Performed By: #### C BC, CMP #### [facility] [address], [place] [id number] Albumin/Globulin [Mass ratio] 1.3 {ratio} Normal 1.0-2.5 [facility] Comment on above: Performed By: #### C BC, CMP #### [facility] [address], [place] [id number] ALP [Catalytic activity/Vol] 68 U/L Normal 35-119 [facility] Comment on above: Performed By: #### C BC, CMP #### [facility] [address], [place] [id number] ALT [Catalytic activity/Vol] 16 U/L Normal 6-33 [facility] Comment on above: Result Comment: 04/02 Female reference range changed. Performed By: #### C BC, CMP #### [facility] [address], [place] [id number] Anion gap [Moles/Vol] 21 mmol/L High 12-20 [facility] Comment on above: Result Comment: Effe ctive 05/08/2019 reference range changed. Performed By: #### C BC, CMP #### [facility] [address], [place] [id number] AST [Catalytic activity/Vol] 20 U/L Normal 9-34 [facility] Comment on above: Performed By: #### C BC, CMP #### [facility] [address], [place] [id number] BUN/CREA 16 Ratio Normal 6-22 [facility] Comment on above: Performed By: #### C BC, CMP #### [facility] [address], [place] [id number] Calcium [Mass/Vol] 7.9 mg/dL Low 8.6-10.2 [facility] Comment on above: Performed By: #### C BC, CMP #### [facility] [address], [place] [id number] Chloride [Moles/Vol] 102 mmol/L Normal 98-107 [facility] Comment on above: Performed By: #### C BC, CMP #### [facility] [address] [facility] [place] [id number] CO2 [Moles/Vol] 26 mmol/L Normal 20-31 [facility] Comment on above: Performed By: #### C BC, CMP #### [facility] [address], [place] [id number] Creatinine [Mass/Vol] 2.0 mg/dL High 0.6-1.4 [facility] [place] [facility] Comment on above: Performed By: #### C BC, CMP #### [facility] [address] [place] [id number] eGFRAA 30 mL/min/1.73m2 Low >60 [facility] Comment on above: Performed By: #### C BC, CMP #### [facility] [address] [place] [id number] eGFRNAA 25 mL/min/1.73m2 Low >60 [facility] Comment on above: Performed By: #### C BC, CMP #### [facility] [address] [facility] [place] [id number] Globulin (S) [Mass/Vol] 3.1 g/dL Normal 1.9-3.7 [facility] Comment on above: Performed By: #### C BC, CMP #### [facility] [address], [place] [id number] Glucose [Mass/Vol] 57 mg/dL Low 65-99 [facility] Comment on above: Result Comment: For FASTING Glucose --- ADA reference ranges: Normal 65-99 mg/dl Prediabetes 100-125 Diabetes >/= 126 Performed By: #### C BC, CMP #### [facility] [address], [place] [id number] Potassium [Moles/Vol] 4.9 mmol/L Normal 3.5-5.5 [facility] Comment on above: Performed By: #### C BC, CMP #### [facility] [address] [facility] [place] [id number] Protein [Mass/Vol] 7.0 g/dL Normal 6.1-8.1 [facility] Comment on above: Performed By: #### C BC, CMP #### [facility] [address] [facility] [place] [id number] Sodium [Moles/Vol] 144 mmol/L Normal 135-146 [facility] Comment on above: Performed By: #### C BC, CMP #### [facility] [address], [place] [id number] TBIL <0.3 Normal [facility] Comment on above: Performed By: #### C BC, CMP #### [facility] [address], [place] [id number] Urea nitrogen [Mass/Vol] 31 mg/dL High 7-25 [facility] Comment on above: Performed By: #### C BC, CMP #### [facility] [address], [place] [id number] Hemoglobin A1Con 05-22-2021 EAG 125.50 Normal [facility] Comment on above: Performed By: #### A 1C #### [facility] [address], [place] [id number] HbA1c (Bld) [Mass fraction] 6.0 % Normal 4.0-6.0 [facility] Comment on above: Performed By: #### A 1C #### [facility] [address], [place] [id number] BASIC METABOLIC PANELon 08-02 Calcium 9.6 mg/dL Normal 8.6-10.3 [facility] Comment on above: Performed By: #### 0 0071 ####[facility] [place] [address], [facility] Chloride 100 mmol/L Normal 98-107 [facility] Comment on above: Performed By: #### 0 0071 ####[facility] [place] [address], [facility] CO2 28 mmol/L Normal 21-31 [facility] Comment on above: Performed By: #### 0 0071 ####[facility] [place] [address], [facility] Creatinine 1.15 mg/dL Normal 0.60-1.20 [facility] Comment on above: Performed By: #### 0 0071 ####[facility] [place] [address], [facility] eGFR (black) 57 ml/min/1.73sq m Abnormal >60 [facility] Comment on above: Performed By: #### 0 0071 ####[facility] eGFR (non-black) 47 ml/min/1.73sq m Abnormal >60 [facility] Comment on above: Performed By: #### 0 0071 ####[facility] Glucose mass conc 163 mg/dL High 70-100 [facility] Comment on above: Performed By: #### 0 0071 ####[place] [address] [address] Potassium molar conc 4.1 mmol/L Normal 3.5-5.1 [facility] Comment on above: Performed By: #### 0 0071 ####[address] Sodium 135 mmol/L Low 136-145 [facility] Comment on above: Performed By: #### 0 0071 ####[place] [address]280 [address] Urea nitrogen 17 mg/dL Normal 7-25 [facility] Comment on above: Performed By: #### 0 0071 ####[place] [address]280 [address] CBC W/DIFFon 08-24-2017 ABS BASOPHILS 0.1 10*3/uL Normal 0.0-0.2 [facility] Comment on above: Performed By: #### 5 3 ####[place] [address]280 [address] ABS IMM GRANS 0.1 10*3/uL Normal 0.0-0.2 [facility] Comment on above: Performed By: #### 5 102 ####[address] Basophils Auto #/vol (Bld) 0.5 % Normal 0.0-1.0 The [facility] [place] Comment on above: Performed By: #### 5 0103 ####[facility] Eosinophils 0.4 10*3/uL Normal 0.0-0.5 The [facility] [place] Comment on above: Performed By: #### 5 0103 ####[facility] Eosinophils/100 leukocytes 3.5 % Normal 0.0-6.0 The [facility] [place] Comment on above: Performed By: #### 5 0103 ####[facility] Erythrocyte distribution width Auto Ratio (RBC) 14.2 % Normal 11.5-15.0 The [facility] [place] Comment on above: Performed By: #### 5 3 ####[facility] Erythrocytes (RBC) 0 % Normal 0-0 The [facility] [place] Comment on above: Performed By: #### 5 0103 ####[facility] Erythrocytes (RBC) 4.12 10*6/uL Normal 3.80-5.00 The [facility] [place] Comment on above: Performed By: #### 5 0103 ####[facility] Hematocrit (HCT) 37.1 % Normal 36.0-45.0 The [facility] [place] Comment on above: Performed By: #### 5 3 ####[facility] Hemoglobin mass conc (Bld) 12.3 g/dL Normal 12.0-15.0 The [facility] [place] Comment on above: Performed By: #### 5 3 ####[facility] [place] [address], [facility] IMMATURE GRANS 0.4 % Normal 0.0-1.0 The [facility] [place] Comment on above: Performed By: #### 5 0103 ####[facility] [place] [address], [facility] Lymphocytes 5.1 10*3/uL High 1.2-4.0 The [facility] [place] Comment on above: Performed By: #### 5 0103 ####[facility]3000 [facility] Lymphocytes/100 leukocytes 40.5 % Normal 20.0-45.0 The [facility] [place] Comment on above: Performed By: #### 5 0103 ####[facility]3000 [facility] MCH 29.9 pg Normal 27.0-33.0 The [facility] [place] Comment on above: Performed By: #### 5 0103 ####[facility]3000 [facility] MCHC mass conc (RBC) 33.2 g/dL Normal 32.0-35.0 The [facility] [place] Comment on above: Performed By: #### 5 0103 ####[facility]3000 [facility].[address] MCV 90.0 fL Normal 82.0-98.0 The [facility] [place] Comment on above: Performed By: #### 5 0103 ####[facility] [place] [address], [facility] Monocytes 0.9 10*3/uL Normal 0.1-1.0 The [facility] [place] Comment on above: Performed By: #### 5 0103 ####[facility] [place] [address], [facility] MONOS 7.5 % Normal 5.0-12.0 The [facility] [place] Comment on above: Performed By: #### 5 0103 ####[facility] Neutrophils 6.0 10*3/uL Normal 1.6-7.6 The [facility] [place] Comment on above: Performed By: #### 5 0103 ####[facility] Neutrophils/100 leukocytes 47.6 % Normal 40.0-72.0 The [facility] [place] Comment on above: Performed By: #### 5 0103 ####[facility] PLAT CNT 239 10*3/uL Normal 150-400 The [facility] [place] Comment on above: Performed By: #### 5 0103 ####[facility] WBC (Leukocytes) 12.5 10*3/uL High 4.0-10.6 The [facility] [place] Comment on above: Performed By: #### 5 0103 ####[address] ABDOMEN AND PELVIS WO CON TRASTon 08-24-2017 CT ABDOMEN AND PELVIS WO CONTRAST [facility] Xngpilkps[address] [place] [address] Monique ent Name: KATE HAGEN : 1950Sex: FAge: Race: WhiteMRN: [id number]. Location: 85Patient Status: DVisit #: [id number] Date: 08/24/2017 2:00:00 PMCompleted Date: 08/24/2017 04:18 PMRequesting Provider: KASANDRA BROWN Attending Provider: KASANDRA BROWN Report Copy To: BARRY BARBER Signs & Symptoms: K43.2 Incisional hernia without obstruction or gangrene [id number]: AthenaComments: , , oral contrast only , , , Ordering Provider - KASANDRA BROWN MD , Rendering Provider - KASANDRA BROWN MD , Exam: CT ABDOMEN AND PELVIS WO CONTRASTAccession #: [id number] ===CT ABDOMEN AND PELVIS WO CONTRAST 08/24/2017 [...] findings. Electronically signed by:Colin Clemente. Transcribed by: [email or web address], User Resident: NADINE RUSHElectronically Signed by: COLIN CLEMENTE @ 08/25/2017 10:20 PMI personally read this/these film(s) with this resident Normal The [facility] [place] Comment on above: Order Comment: , , o ral contrast only , , , Ordering Provider - KASANDRA BROWN MD , Rendering Provider - KASANDRA BROWN MD , HEMOGLOBIN A1Con 08-24-2017 Glucose mass conc 146 mg/dL High 70-126 The [facility] [place] Comment on above: Performed By: #### 4 [id number] ####[facility]3000 [facility] Hemoglobin A1c/Hemoglobin.total mass fraction (Bld) 6.7 % High 4.0-6.0 The [facility] [place] Comment on above: Performed By: #### 4 6447 ####[facility]3000 [facility] [place] [address], [facility] PROTHROMBIN TIMEon 8 INR Coag RelTime (PPP) 1.10 {INR} Normal 0.91-1.16 The [facility] [place] Comment on above: Result Comment: ACCC P RECOMMENDED INR FOR WARFARIN THERAPY CONDITION INRPROPHYLAXIS OF VENOUS THROMBOSIS 2-3(HIGH-RISK SURGERY)TREATMENT OF VENOUS THROMBOSIS 2-3TREATMENT OF PULMONARY EMBOLISM 2-3PREVENTION OF SYSTEMIC EMBOLISM: 2-3 ACUTE MYOCARDIAL INFARCTION TISSUE HEART VALVES VALVULAR HEART DISEASE ATRIAL FIBRILLATION RECURRENT SYSTEMIC EMBOLISMMECHANICAL HEART VALVE 2.5-3.5 FROM: ORAL ANTICOAGULANTS. MECHANISM OF ACTION, CLINICALEFFECTIVENESS, AND OPTIMAL THERAPEUTIC RANGE. [id number]. Performed By: #### 5 6101 ####[facility]3000 [facility] [address], [facility] Prothrombin time (PT) Coag time (PPP) 14.3 s Normal 12.3-14.8 The [facility] [place] Comment on above: Result Comment: ALL RESULTS MUST BE INTERPRETED WITH RESPECT TO BLOOD DRAWING ARTIFACTOR DILUTION ERROR OF ANTICOAGULANT AT THE TIME OF SAMPLING. Performed By: #### 5 6101 ####[facility] Vital Signs Date Time Vital Sign Value Performing Clinician Facility 06-01-2024 16:36-0500 Body height 160 cm Colt Thomason DPM Work Phone: [facility] 06-01-2024 16:36-0500 Body mass index (BMI) [Ratio] 24.62 kg/m2 Colt Thomason DPM Work Phone: [facility] 06-01-2024 16:36-0500 Body weight 63.05 kg Colt Thomason DPM Work Phone: [facility] 06-01-2024 16:36-0500 Respiratory rate 16 /min Colt Thomason DPM Work Phone: [facility] 05-10-2024 12:16-0500 Body height 152.4 cm Jose Canela DO Work Phone: [facility] 05-10-2024 12:16-0500 Body mass index (BMI) [Ratio] 28.44 kg/m2 Jose Canela DO Work Phone: [facility] 05-10-2024 12:16-0500 Body weight 66.04 kg Jose Canela DO Work Phone: [facility] 05-10-2024 12:16-0500 Diastolic blood pressure 68 mm[Hg] Jose Canela DO Work Phone: [facility] 05-10-2024 12:16-0500 Heart rate 74 /min Jose Canela DO Work Phone: [facility] 05-10-2024 12:16-0500 Systolic blood pressure 122 mm[Hg] Jose Canela DO Work Phone: [facility] 04-17-2024 13:43-0500 Body height 160 cm Barry Barber MD Work Phone: [facility] 04-17-2024 13:43-0500 Body mass index (BMI) [Ratio] 24.62 kg/m2 Barry Barber MD Work Phone: [facility] 04-17-2024 13:43-0500 Body weight 63.05 kg Barry Barber MD Work Phone: [facility] 04-17-2024 13:43-0500 Diastolic blood pressure 66 mm[Hg] Barry Barber MD Work Phone: [facility] 04-17-2024 13:43-0500 Heart rate 75 /min Barry Barber MD Work Phone: [facility] 04-17-2024 13:43-0500 SaO2% (BldA) [Mass fraction] 96 % Barry Barber MD Work Phone: [facility] 04-17-2024 13:43-0500 Systolic blood pressure 130 mm[Hg] Barry Barber MD Work Phone: [facility] 03-09-2024 15:22-0500 Body height 160 cm Colt Thomason DPM Work Phone: [facility] 03-09-2024 15:22-0500 Body mass index (BMI) [Ratio] 23.56 kg/m2 Colt Thomason DPM Work Phone: [facility] 03-09-2024 15:22-0500 Body weight 60.33 kg Colt Thomason DPM Work Phone: [facility] 03-09-2024 15:22-0500 Diastolic blood pressure 82 mm[Hg] Colt Thomason DPM Work Phone: [facility] 03-09-2024 15:22-0500 Heart rate 83 /min Colt Thomason DPM Work Phone: [facility] 03-09-2024 15:22-0500 Systolic blood pressure 125 mm[Hg] Colt Thomason DPM Work Phone: [facility] 01-17-2024 14:58-0400 Body height 160 cm Barry Barber MD Work Phone: [facility] 01-17-2024 14:58-0400 Body mass index (BMI) [Ratio] 23.56 kg/m2 Barry Barber MD Work Phone: [facility] 01-17-2024 14:58-0400 Body weight 60.33 kg Barry Barber MD Work Phone: [facility] 01-17-2024 14:58-0400 Diastolic blood pressure 66 mm[Hg] Barry Barber MD Work Phone: [facility] 01-17-2024 14:58-0400 Heart rate 76 /min Barry Barber MD Work Phone: [facility] 01-17-2024 14:58-0400 SaO2% (BldA) [Mass fraction] 95 % Barry Barber MD Work Phone: [facility] 01-17-2024 14:58-0400 Systolic blood pressure 112 mm[Hg] Barry Barber MD Work Phone: [facility] 12-30-2023 14:56-0400 Body height 160 cm Colt Thomason DPM Work Phone: [facility] 12-30-2023 14:56-0400 Body mass index (BMI) [Ratio] 22.67 kg/m2 Colt Thomason DPM Work Phone: [facility] 12-30-2023 14:56-0400 Body weight 58.06 kg Colt Thomason DPM Work Phone: [facility] 12-30-2023 14:56-0400 Diastolic blood pressure 75 mm[Hg] Colt Thomason DPM Work Phone: [facility] 12-30-2023 14:56-0400 Heart rate 81 /min Colt Thomason DPM Work Phone: [facility] 12-30-2023 14:56-0400 Systolic blood pressure 126 mm[Hg] Colt Thomason DPM Work Phone: [facility] 12-09-2023 15:00-0400 Body height 152.4 cm II Barry Barber Work Phone: [facility] 12-09-2023 15:00-0400 Body mass index (BMI) [Ratio] 25 kg/m2 II Barry Barber Work Phone: [facility] 12-09-2023 15:00-0400 Body temperature 98.3 [degF] II Barry Barber Work Phone: [facility] 12-09-2023 15:00-0400 Body weight 58.05 kg II Barry Barber Work Phone: [facility] 12-09-2023 15:00-0400 Diastolic blood pressure 62 mm[Hg] II Barry Barber Work Phone: [facility] 12-09-2023 15:00-0400 Heart rate 102 /min II Barry Barber Work Phone: [facility] 12-09-2023 15:00-0400 Inhaled oxygen flow rate 3 L/min II Barry Barber Work Phone: [facility] 12-09-2023 15:00-0400 Respiratory rate 20 /min II Barry Barber Work Phone: [facility] 12-09-2023 15:00-0400 SaO2% (BldA) [Mass fraction] 96 % II Barry Barber Work Phone: [facility] 12-09-2023 15:00-0400 Systolic blood pressure 98 mm[Hg] II Barry Barber Work Phone: [facility] 11-11-2023 15:21-0400 Inhaled oxygen flow rate 3 L/min II Barry Barber Work Phone: [facility] 11-11-2023 15:20-0400 Body temperature 98.5 [degF] II Barry Barber Work Phone: [facility] 11-11-2023 15:20-0400 Diastolic blood pressure 91 mm[Hg] II Barry Barber Work Phone: [facility] 11-11-2023 15:20-0400 Heart rate 109 /min II Barry Barber Work Phone: [facility] 11-11-2023 15:20-0400 Respiratory rate 18 /min II Barry Barber Work Phone: [facility] 11-11-2023 15:20-0400 SaO2% (BldA) [Mass fraction] 99 % II Barry Barber Work Phone: [facility] 11-11-2023 15:20-0400 Systolic blood pressure 145 mm[Hg] II Barry Barber Work Phone: [facility] 11-11-2023 06:00-0400 Body weight 64.6 kg II Barry Barber Work Phone: [facility] 11-09-2023 15:12-0400 Body height 152.4 cm II Barry Barber Work Phone: [facility] 11-08-2023 18:31-0400 Diastolic blood pressure 103 mm[Hg] II Barry Barber Work Phone: [facility] 11-08-2023 18:31-0400 Heart rate 74 /min II Barry Barber Work Phone: [facility] 11-08-2023 18:31-0400 Respiratory rate 19 /min II Barry Barber Work Phone: [facility] 11-08-2023 18:31-0400 SaO2% (BldA) [Mass fraction] 98 % II Barry Barber Work Phone: [facility] 11-08-2023 18:31-0400 Systolic blood pressure 130 mm[Hg] II Barry Barber Work Phone: [facility] 11-08-2023 16:44-0400 Body temperature 98.3 [degF] II Barry Barber Work Phone: [facility] 11-08-2023 16:44-0400 Inhaled oxygen flow rate 3 L/min II Barry Barber Work Phone: [facility] 11-08-2023 11:54-0400 Body height 152.4 cm II Barry Barber Work Phone: [facility] 11-08-2023 11:54-0400 Body weight 65.31 kg II Barry Barber Work Phone: [facility] 11-08-2023 10:16-0400 Body height 152.4 cm Jose Arriaga MD Work Phone: [facility] 11-08-2023 10:16-0400 Body mass index (BMI) [Ratio] 28.12 kg/m2 Jose Arriaga MD Work Phone: [facility] 11-08-2023 10:16-0400 Body weight 65.32 kg Jose Arriaga MD Work Phone: [facility] 11-08-2023 10:16-0400 Diastolic blood pressure 66 mm[Hg] Jose Arriaga MD Work Phone: [facility] 11-08-2023 10:16-0400 Heart rate 76 /min Jose Arriaga MD Work Phone: [facility] 11-08-2023 10:16-0400 Systolic blood pressure 94 mm[Hg] Jose Arriaga MD Work Phone: [facility] 09-07-2023 15:24-0400 Blood Pressure Location Shaye Pittman [facility] 09-07-2023 15:24-0400 Body temperature 98.06 [degF] Shaye Trinhzech [facility] 09-07-2023 15:24-0400 Diastolic blood pressure 62 mm[Hg] Shaye Pittman [facility] 09-07-2023 15:24-0400 Heart rate 78 /min Shaye Orzech [facility] 09-07-2023 15:24-0400 Respiratory rate 16 /min Shaye Orzech [facility] 09-07-2023 15:24-0400 Systolic blood pressure 125 mm[Hg] Shaye Orzech [facility] 07-26-2023 14:20-0400 Body height 152.4 cm Annika Kaba HUMAN RESOURCE CONSULTANT-NEGATIVE NOTCHER Work Phone: [facility] 07-26-2023 14:20-0400 Body mass index (BMI) [Ratio] 25.78 kg/m2 Annika Kaba HUMAN RESOURCE CONSULTANT-NEGATIVE NOTCHER Work Phone: [facility] 07-26-2023 14:20-0400 Body weight 59.88 kg Annika Kaba HUMAN RESOURCE CONSULTANT-NEGATIVE NOTCHER Work Phone: [facility] 07-26-2023 14:20-0400 Diastolic blood pressure 56 mm[Hg] Annika Kaba HUMAN RESOURCE CONSULTANT-NEGATIVE NOTCHER Work Phone: [facility] 07-26-2023 14:20-0400 Heart rate 72 /min Annika Kaba HUMAN RESOURCE CONSULTANT-NEGATIVE NOTCHER Work Phone: [facility] 07-26-2023 14:20-0400 Systolic blood pressure 106 mm[Hg] Annika Kaba HUMAN RESOURCE CONSULTANT-NEGATIVE NOTCHER Work Phone: [facility] 04-29-2023 14:24-0500 Body height 152.[address] 04-29-2023 14:24-0500 Body mass index (BMI) [Ratio] 31.25 kg/m2 [address] 04-29-2023 14:24-0500 Body weight 72.[address] 04-29-2023 14:24-0500 Diastolic blood pressure 64 mm[Hg] [address] 04-29-2023 14:24-0500 Systolic blood pressure 122 mm[Hg] [address] 04-28-2023 09:43-0500 Body temperature 96.98 [degF] Jacuqi Lue [facility] 04-28-2023 09:43-0500 Diastolic blood pressure 86 mm[Hg] Jacqui Lue [facility] 04-28-2023 09:43-0500 Heart rate 74 /min Jacqui Lue [facility] 04-28-2023 09:43-0500 Systolic blood pressure 124 mm[Hg] Jacqui Lue [facility] 03-30-2023 13:55-0500 Body height 152.4 cm Annika Kaba HUMAN RESOURCE CONSULTANT-NEGATIVE NOTCHER Work Phone: [facility] 03-30-2023 13:55-0500 Body mass index (BMI) [Ratio] 31.25 kg/m2 Annika Kaba HUMAN RESOURCE CONSULTANT-NEGATIVE NOTCHER Work Phone: [facility] 03-30-2023 13:55-0500 Body weight 72.58 kg Annika Kaba HUMAN RESOURCE CONSULTANT-NEGATIVE NOTCHER Work Phone: [facility] 03-30-2023 13:55-0500 Diastolic blood pressure 60 mm[Hg] Annika Kaba HUMAN RESOURCE CONSULTANT-NEGATIVE NOTCHER Work Phone: [facility] 03-30-2023 13:55-0500 Heart rate 70 /min Annika Kaba HUMAN RESOURCE CONSULTANT-NEGATIVE NOTCHER Work Phone: [facility] 03-30-2023 13:55-0500 Systolic blood pressure 128 mm[Hg] Annika Kaba HUMAN RESOURCE CONSULTANT-NEGATIVE NOTCHER Work Phone: [facility] 02-03-2023 09:07-0400 Blood Pressure Location Jacqui Lue [facility] 02-03-2023 09:07-0400 Diastolic blood pressure 74 mm[Hg] Jacqui Lue [facility] 02-03-2023 09:07-0400 Heart rate 68 /min Jacqui Lue [facility] 02-03-2023 09:07-0400 Respiratory rate 16 /min Jacqui Lue [facility] 02-03-2023 09:07-0400 Systolic blood pressure 120 mm[Hg] Jacqui Lue [facility] 12-29-2022 14:17-0400 Blood Pressure Location XIMENA DANN [facility] 12-29-2022 14:17-0400 Diastolic blood pressure 70 mm[Hg] XIMENA DANN [facility] 12-29-2022 14:17-0400 Heart rate 70 /min XIMENA DANN [facility] 12-29-2022 14:17-0400 Respiratory rate 16 /min XIMENA DANN [facility] 12-29-2022 14:17-0400 Systolic blood pressure 132 mm[Hg] XIMENA DANN [facility] 12-28-2022 14:33-0400 Body height 152.4 cm Barry Barber Work Phone: [facility] DO Work Phone: 12-28-2022 14:33-0400 Body mass index (BMI) [Ratio] 29.49 kg/m2 Barry Pearson Justice Work Phone: [facility] [address] DO Work Phone: 12-28-2022 14:33-0400 Body surface area Derived from formula 1.66 m2 Barry Pearson Justice Work Phone: [facility] [address] DO Work Phone: 12-28-2022 14:33-0400 Body weight 68.49 kg Barry Pearson Barber Work Phone: [facility] [address] DO Work Phone: 12-28-2022 14:33-0400 Diastolic blood pressure 44 mm[Hg] Barry Pearson Justice Work Phone: [facility] [address] DO Work Phone: 12-28-2022 14:33-0400 Heart rate 76 /min Barry Barber Work Phone: [facility] [address] DO Work Phone: 12-28-2022 14:33-0400 Systolic blood pressure 80 mm[Hg] Barry Barber Work Phone: [facility] DO Work Phone: 12-28-2022 14:33-0400 11 1 Barry Pearson Justice Work Phone: [facility] DO Work Phone: Comment on above: [id number] TS 11-21-2022 16:00-0400 Inhaled oxygen flow rate 4 L/min II Barry Barber Work Phone: [facility] 11-21-2022 15:53-0400 Heart rate 65 /min II Baryr Barber Work Phone: [facility] 11-21-2022 15:53-0400 Respiratory rate 20 /min II Barry Barber Work Phone: [facility] 11-21-2022 12:00-0400 Diastolic blood pressure 79 mm[Hg] II Barry Barber Work Phone: [facility] 11-21-2022 12:00-0400 SaO2% (BldA) [Mass fraction] 93 % II Barry Barber Work Phone: [facility] 11-21-2022 12:00-0400 Systolic blood pressure 149 mm[Hg] II Barry Barber Work Phone: [facility] 11-21-2022 08:30-0400 Body temperature 97.9 [degF] II Barry Barber Work Phone: [facility] 11-21-2022 06:00-0400 Body weight 74 kg II Barry Barber Work Phone: [facility] 11-19-2022 09:40-0400 Body height 152.4 cm II Barry Barber Work Phone: [facility] 11-18-2022 19:23-0400 Diastolic blood pressure 88 mm[Hg] II Barry Barber Work Phone: [facility] 11-18-2022 19:23-0400 Heart rate 82 /min II Barry Barber Work Phone: [facility] 11-18-2022 19:23-0400 Inhaled oxygen flow rate 3 L/min II Barry Barber Work Phone: [facility] 11-18-2022 19:23-0400 Respiratory rate 18 /min II Barry Barber Work Phone: [facility] 11-18-2022 19:23-0400 SaO2% (BldA) [Mass fraction] 96 % II Barry Barber Work Phone: [facility] 11-18-2022 19:23-0400 Systolic blood pressure 194 mm[Hg] II Barry Barber Work Phone: [facility] 11-18-2022 16:13-0400 Body height 152.4 cm II Barry Barber Work Phone: [facility] 11-18-2022 16:13-0400 Body temperature 98.3 [degF] II Barry Barber Work Phone: [facility] 11-18-2022 16:13-0400 Body weight 75.29 kg II Barry Barber Work Phone: [facility] 08-27-2022 16:00-0400 Body height 152.4 cm Ziggy Charlie Other [facility] Other 08-27-2022 16:00-0400 Body mass index (BMI) [Ratio] 34.8 kg/m2 Ziggy Charlie Other [facility] Other 08-27-2022 16:00-0400 Body temperature 97.5 [degF] Ziggy Charlie Other [facility] Other 08-27-2022 16:00-0400 Body weight 80.83 kg Ziggy Charlie Other [facility] Other 08-27-2022 16:00-0400 Diastolic blood pressure 70 mm[Hg] Ziggy Charlie Other [facility] Other 08-27-2022 16:00-0400 Respiratory rate 18 /min Ziggy Charlie Other [facility] Other 08-27-2022 16:00-0400 SaO2% (BldA) [Mass fraction] 91 % Ziggy Charlie Other [facility] Other 08-27-2022 16:00-0400 Systolic blood pressure 124 mm[Hg] Ziggy Dean Other [facility] Other 07-29-2022 09:08-0400 Blood Pressure Location Jacqui Lue [facility] 07-29-2022 09:08-0400 Diastolic blood pressure 89 mm[Hg] Jacqui Lue [facility] 07-29-2022 09:08-0400 Heart rate 66 /min Jacqui Lue [facility] 07-29-2022 09:08-0400 Systolic blood pressure 131 mm[Hg] Jacqui Lue [facility] 06-10-2022 10:24-0500 Blood Pressure Location Jacqui Lue [facility] 06-10-2022 10:24-0500 Diastolic blood pressure 80 mm[Hg] Jacqui Lue [facility] 06-10-2022 10:24-0500 Heart rate 77 /min Jacqui Lue [facility] 06-10-2022 10:24-0500 Systolic blood pressure 130 mm[Hg] Jacqui Lue [facility] 02-16-2022 13:05-0400 Blood Pressure Location Montero SALAM [facility] 02-16-2022 13:05-0400 Diastolic blood pressure 76 mm[Hg] Montero SALAM [facility] 02-16-2022 13:05-0400 Heart rate 68 /min Montero SALAM [facility] 02-16-2022 13:05-0400 Respiratory rate 30 /min Montero SALAM [facility] 02-16-2022 13:05-0400 SaO2% (BldA) [Mass fraction] 98 % Montero SALAM [facility] 02-16-2022 13:05-0400 Systolic blood pressure 142 mm[Hg] Montero SALAM [facility] 02-16-2022 13:00-0400 Respiratory rate 25 /min Montero SALAM [facility] 02-16-2022 13:00-0400 Systolic blood pressure 127 mm[Hg] Montero SALAM [facility] 02-16-2022 12:55-0400 Blood Pressure Location Montero SALAM [facility] 02-16-2022 12:55-0400 Diastolic blood pressure 71 mm[Hg] Montero SALAM [facility] 02-16-2022 12:55-0400 Heart rate 70 /min Montero SALAM [facility] 02-16-2022 12:55-0400 Respiratory rate 27 /min Montero SALAM [facility] 02-16-2022 12:55-0400 SaO2% (BldA) [Mass fraction] 97 % Montero SALAM [facility] 02-16-2022 12:55-0400 Systolic blood pressure 119 mm[Hg] Montero SALAM [facility] 02-16-2022 12:42-0400 Body temperature 96.98 [degF] Montero SALAM [facility] 02-16-2022 10:46-0400 Body temperature 96.8 [degF] Montero SALAM [facility] 12-31-2021 14:58-0400 Diastolic blood pressure 80 mm[Hg] Lani Lisy [facility] 12-31-2021 14:58-0400 Mean blood pressure 100 mm[Hg] Lani Lisy [facility] 12-31-2021 14:58-0400 Systolic blood pressure 140 mm[Hg] Lani Lisy [facility] 12-31-2021 14:54-0400 Blood Pressure Location Lani Lisy [facility] 12-31-2021 14:54-0400 Body temperature 97.7 [degF] Lani Lisy [facility] 12-31-2021 14:54-0400 Diastolic blood pressure 77 mm[Hg] Lani Lisy [facility] 12-31-2021 14:54-0400 Heart rate 69 /min Lani Lisy [facility] 12-31-2021 14:54-0400 Systolic blood pressure 144 mm[Hg] Lani Lisy [facility] 12-13-2021 11:05-0400 Body weight 79.56 kg Smiley Davila Other [facility] Other 12-13-2021 11:05-0400 Diastolic blood pressure 70 mm[Hg] Smiley Davila Other [facility] Other 12-13-2021 11:05-0400 Respiratory rate 18 /min Smiley Davila Other [facility] Other 12-13-2021 11:05-0400 SaO2% (BldA) [Mass fraction] 94 % Smiley Davila Other [facility] Other 12-13-2021 11:05-0400 Systolic blood pressure 129 mm[Hg] Smiley Davila Other [facility] Other Encounters Encounter Date Encounter Type Care Provider Facility Start: 06-02-2024 End: 06-02-2024 Clinisync Result Encounter Barry Barber MD Work Phone: [facility] External Department Unsolicited Start: 06-02-2024 End: 06-02-2024 Clinisync Result Encounter Barry Barber MD Work Phone: [facility] External Department Unsolicited Start: 06-01-2024 End: 06-01-2024 Office outpatient visit 15 minutes Colt Thomason DPM Work Phone: [facility] Comment on above: Xerosis cutis (Prima ry Dx); Diabetes mellitus due to underlying condition with diabetic polyneuropathy, 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 ([facility]); Pain due to onychomycosis of toenails of both feet Start: 06-01-2024 End: 06-01-2024 ambulatory COLT THOMASON Not Available Start: 06-01-2024 End: 06-01-2024 Bamboo flowsheet Colt Thomason DPM Work Phone: [facility] Start: 06-01-2024 End: 06-01-2024 Bamboo flowsheet Colt Thomason DPM Work Phone: [facility] Start: 05-10-2024 End: 05-10-2024 Office outpatient visit 40 minutes Jose Canela DO Work Phone: [facility] Comment on above: Paroxysmal atrial fi brillation (Multi); Nonrheumatic aortic valve stenosis; Pulmonary hypertension (Multi); Mixed hyperlipidemia; Essential hypertension; Anticoagulated; Diabetes mellitus type II, non insulin dependent (Multi); Stage 3b chronic kidney disease (Multi); Chronic obstructive pulmonary disease, unspecified COPD type (Multi); Body mass index 28.0-28.9, adult; Current smoker; Congestive heart failure, unspecified HF chronicity, unspecified heart failure type Start: 05-08-2024 End: 05-09-2024 Refill Barry Barber MD Work Phone: [facility] Comment on above: Panic attacks (CMS/H CC) Start: 04-22-2024 End: 04-24-2024 Refill Renetta ADAM Work Phone: [facility] Comment on above: Gastroesophageal ref lux disease without esophagitis Start: 04-17-2024 End: 04-17-2024 Bamboo flowsheet Barry Barber MD Work Phone: [facility] Start: 04-17-2024 End: 04-17-2024 Bamboo flowsheet Barry Barber MD Work Phone: [facility] Start: 04-17-2024 End: 04-17-2024 Office outpatient visit 25 minutes Barry Barber MD Work Phone: [facility] Comment on above: Acute bronchitis, un specified organism (Primary Dx); Age-related osteoporosis without current pathological fracture ([facility]); Flu vaccine need; CKD (chronic kidney disease) stage 4, GFR 15-29 ml/min ([facility]); Psoriatic arthritis ([facility]) Start: 04-17-2024 End: 04-17-2024 ambulatory BARRY BARBER Not Available Start: 04-05-2024 End: 04-05-2024 Telephone encounter Renetta ADAM Work Phone: [facility] Comment on above: change qty of med Start: 04-04-2024 End: 04-04-2024 Clinisync Result Encounter Generic External Data Provider [facility] External Department Unsolicited Start: 04-04-2024 End: 04-04-2024 Clinisync Result Encounter Generic External Data Provider [facility] External Department Unsolicited Start: 04-04-2024 End: 04-05-2024 Telephone encounter Randee Wednesday ASSISTANT PRODUCT MANAGER Work Phone: [facility] Start: 03-22-2024 End: 03-22-2024 Refill Barry Barber MD Work Phone: [facility] Comment on above: Panic attacks (CMS/H CC) Start: 03-15-2024 End: 03-15-2024 ambulatory Jacqui Michael Facility:[facility] Start: 03-15-2024 End: 03-15-2024 Patient encounter procedure Jacqui Michael [facility] Start: 03-09-2024 End: 03-09-2024 Office outpatient visit 10 minutes Colt Thomason DPM Work Phone: [facility] Comment on above: Xerosis cutis (Prima ry Dx); Diabetes mellitus due to underlying condition with diabetic polyneuropathy, unspecified whether senior care insulin use (CMS/HCC); Pain due to onychomycosis of toenails of both feet Start: 03-09-2024 End: 03-09-2024 ambulatory COLT THOMASON Not Available Start: 03-09-2024 End: 03-09-2024 Bamboo flowsheet Colt Thomason DPM Work Phone: [facility] Start: 03-09-2024 End: 03-09-2024 Bamboo flowsheet Colt Thomason DPM Work Phone: [facility] Start: 02-10-2024 End: 02-10-2024 Refill Barry Barber MD Work Phone: [facility] Comment on above: Panic attacks (CMS/H CC) Start: 01-25-2024 End: 01-25-2024 Refill Colt Thomason DPM Work Phone: [facility] Comment on above: Xerosis cutis Start: 01-21-2024 End: 01-21-2024 Telephone encounter Aga Renee SOLE CUTTER Work Phone: [facility] Start: 01-20-2024 End: 01-21-2024 Clinisync Result Encounter Barry Barber MD Work Phone: [facility] External Department Unsolicited Start: 01-20-2024 End: 01-21-2024 Clinisync Result Encounter Barry Barber MD Work Phone: [facility] External [facility] Unsolicited Start: 01-17-2024 End: 01-17-2024 Office outpatient visit 25 minutes Barry Barber MD Work Phone: [facility] Comment on above: CKD (chronic kidney disease) stage 4, GFR 15-29 ml/min (CMS/HCC) (Primary Dx); Benign hypertensive kidney disease with chronic kidney disease stage I through stage IV, or unspecified (CMS/HCC); Chronic diastolic congestive heart failure (CMS/[facility]); Diabetic nephropathy associated with type 2 diabetes mellitus (HCC) (CMS/[facility]); Diarrhea, unspecified type; Clostridium difficile colitis Start: 01-17-2024 End: 01-17-2024 ambulatory BARRY BARBER Not Available Start: 01-17-2024 End: 01-17-2024 Bamboo flowsheet Barry Barber MD Work Phone: [facility] Start: 01-17-2024 End: 01-17-2024 Bamboo flowsheet Barry Barber MD Work Phone: [facility] Start: 12-30-2023 End: 12-30-2023 Office outpatient visit 15 minutes Colt Thomason DPM Work Phone: [facility] Comment on above: Xerosis cutis (Prima ry Dx); Diabetes mellitus due to underlying condition with diabetic polyneuropathy, 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 (CMS/HCC); Onychomycosis; Toe pain, bilateral Start: 12-30-2023 End: 12-30-2023 ambulatory COLT THOMASON Not Available Start: 12-30-2023 End: 12-30-2023 Bamboo flowsheet Colt Thomason DPM Work Phone: [facility] Start: 12-30-2023 End: 12-30-2023 Bamboo flowsheet Colt Thomason DPM Work Phone: [facility] Start: 12-09-2023 End: 12-09-2023 ambulatory II Barry Barber Work Phone: [facility] Work Phone: Start: 12-09-2023 End: 12-09-2023 Patient encounter procedure II Barry Barber Work Phone: [facility] Work Phone: Start: 12-03-2023 End: 12-03-2023 ambulatory BARRY BARBER [facility] Start: 12-01-2023 End: 12-01-2023 ambulatory RENETTA RM Not Available Start: 11-18-2023 End: 11-18-2023 ambulatory RENETTA RM Not Available Start: 11-09-2023 Non-patient / Non-visit II Juan Manuel Barber Work Phone: [facility] Work Phone: Start: 11-08-2023 End: 11-11-2023 Evaluation and management of inpatient II Barry Justice Work Phone: [facility] Work Phone: Start: 11-08-2023 End: 11-08-2023 Office outpatient visit 25 minutes Jose Arriaga MD Work Phone: [facility] Comment on above: Nonrheumatic aortic valve stenosis; Paroxysmal atrial fibrillation (Multi); Abnormal echocardiogram; Pulmonary hypertension (Multi); Mixed hyperlipidemia; Essential hypertension; Anticoagulated; Stage 3b chronic kidney disease (Multi); Current smoker Start: 11-03-2023 End: 11-03-2023 ambulatory RENETTA RM Not Available Start: 10-13-2023 End: 10-13-2023 ambulatory BARRY BARBER Not Available Start: 09-12-2023 Letter encounter Colt gonzalez DO Work Phone: [facility] Start: 09-10-2023 End: 09-10-2023 ambulatory BARRY BARBER Not Available Start: 09-08-2023 End: 09-09-2023 ambulatory KAYDEN LEE Facility:[facility] Start: 09-08-2023 End: 09-08-2023 Office outpatient visit 15 minutes Colt Live DO Work Phone: [facility] Comment on above: Closed displaced int ertrochanteric fracture of right femur, initial encounter (HCC) (Primary Dx) Start: 09-08-2023 End: 09-08-2023 Subsequent hospital visit by physician Phe Op X-Ray 4 [facility] Comment on above: Closed displaced int ertrochanteric fracture of right femur, initial encounter (HCC) Start: 09-07-2023 End: 09-07-2023 ambulatory Shaye X Orzech Facility:[facility] Start: 09-07-2023 End: 09-07-2023 Patient encounter procedure Shaye X Orzech [facility] Start: 08-18-2023 ambulatory MENG LEOS Facility: [facility] Start: 08-18-2023 End: 08-18-2023 Patient encounter procedure Meng Leos DMD, MD Work Phone: [facility] Comment on above: Edentulous (Primary Dx) Start: 08-12-2023 End: 08-12-2023 ambulatory BARRY B JUSTICE Not Available Start: 08-11-2023 End: 08-12-2023 ambulatory ANNIKA KABA [facility] Start: 07-26-2023 End: 07-26-2023 Office outpatient visit 25 minutes Annika Kaba HUMAN RESOURCE CONSULTANT-NEGATIVE NOTCHER Work Phone: [facility] Comment on above: Anticoagulated (Prim omar Dx); Paroxysmal atrial fibrillation (CMS/[facility]); Nonrheumatic aortic valve stenosis; Abnormal echocardiogram; Pulmonary hypertension ([facility]); Mixed hyperlipidemia; Essential hypertension; Diabetes mellitus type II, non insulin dependent ([facility]); Stage 3b chronic kidney disease ([facility]); BMI 25.0-25.9,adult; Current smoker Start: 07-07-2023 End: 07-08-2023 ambulatory KAYDEN LEE Facility:[facility] Start: 07-07-2023 End: 07-07-2023 Patient encounter procedure Colt Justinlisa DAWKINS Other Phone: [facility] Comment on above: Closed displaced int ertrochanteric fracture of right femur, initial encounter ([facility]) (Primary Dx) Start: 07-07-2023 End: 07-07-2023 Subsequent hospital visit by physician Phe 1 [facility] Comment on above: Closed displaced int ertrochanteric fracture of right femur, initial encounter ([facility]) Start: 07-06-2023 End: 07-06-2023 ambulatory RENETTA RM Not Available Start: 07-05-2023 Ancillary Orders Kayden Lee PA-C Other Phone: [facility] Start: 06-16-2023 Clinisync Result Encounter Annabelle Rivas MD Work Phone: [facility] External [facility] Unsolicited Start: 06-16-2023 Clinisync Result Encounter Annabelle Rivas MD Work Phone: [facility] External [facility] Unsolicited Start: 06-15-2023 ambulatory Elmo Allen RN Work Phone: [facility] Care Management/Patient Access Start: 06-15-2023 Coordination of care plan Epifanio Allen RN Work Phone: [facility] Management/Patient Access Comment on above: Care Coordination; T ransitional Care Management Start: 06-14-2023 Clinisync Result Encounter Annabelle Rivas MD Work Phone: [facility] External [facility] Unsolicited Start: 06-14-2023 Clinisync Result Encounter Annabelle Rivas MD Work Phone: [facility] External [facility] Unsolicited Start: 06-11-2023 Clinisync Result Encounter Jose oCnti SOLE CUTTER Work Phone: [facility] External Department Unsolicited Start: 06-11-2023 Clinisync Result Encounter Jose Conti SOLE CUTTER Work Phone: [facility] External Department Unsolicited Start: 06-09-2023 End: 06-10-2023 ambulatory KAYDEN LEE Facility:[facility] Start: 06-09-2023 End: 06-09-2023 Patient encounter procedure Colt Live DO Work Phone: [facility] Comment on above: Closed displaced int ertrochanteric fracture of right femur, initial encounter ([facility]) (Primary Dx) Start: 06-09-2023 End: 06-09-2023 Subsequent hospital visit by physician Phe Op X-Ray 4 [facility] Comment on above: Closed displaced int ertrochanteric fracture of right femur, initial encounter ([facility]) Start: 06-07-2023 Ancillary Orders Kayden Lee PA-C Work Phone: [facility] Start: 06-01-2023 ambulatory Elmo Allen RN Work Phone: [facility] Care Management/Patient Access Start: 06-01-2023 Coordination of care plan Epifanio Allen RN Work Phone: [facility] Care Management/Patient Access Comment on above: Care Coordination; T ransitional Care Management Start: 05-25-2023 ambulatory Elmo Allen RN Work Phone: [facility] Care Management/Patient Access Start: 05-25-2023 Coordination of care plan Epifanio Allen RN Work Phone: [facility] Care Management/Patient Access Comment on above: Care Coordination; T ransitional Care Management Start: 05-19-2023 ambulatory Elmo Allen RN Work Phone: [facility] Care Management/Patient Access Start: 05-19-2023 Follow-up encounter Elmo de leon RN Work Phone: [facility] Care Management/Patient Access Comment on above: Care Coordination; T ransitional Care Management; Hospital follow-up Start: 05-14-2023 Evaluation and manag ement of inpatient UNKNOWN PROVIDER Facility:[facility] Start: 05-14-2023 ambulatory UNKNOWN PROVIDER Facili ty:[facility] Start: 05-13-2023 End: 05-18-2023 Evaluation and management of inpatient LALI RIVERA Facility:[facility] Start: 05-07-2023 End: 05-07-2023 ambulatory [facility] Start: 04-29-2023 End: 04-29-2023 Subsequent hospital visit by physician Doreen Chi Echo/Vasc Room 2 [facility] Comment on above: Nonrheumatic aortic valve stenosis; Pulmonary hypertension (CMS/HCC) Start: 04-28-2023 End: 04-28-2023 ambulatory Jacqui Michael Facility:[facility] Start: 04-28-2023 End: 04-28-2023 Patient encounter procedure Jacqui Michael [facility] Start: 04-20-2023 End: 04-20-2023 ambulatory [facility] Start: 04-20-2023 ambulatory Jacqui Michael Facility:[facility] Start: 03-30-2023 End: 03-30-2023 Office outpatient visit 25 minutes Annika Kaba APRN-NEGATIVE NOTCHER Work Phone: [facility] Comment on above: Paroxysmal atrial fi brillation (CMS/HCC) (Primary Dx); Anticoagulated; Nonrheumatic aortic valve stenosis; Abnormal echocardiogram; Pulmonary hypertension (CMS/HCC); Stage 3a chronic kidney disease (CMS/HCC); Current smoker; Diabetes mellitus type II, non insulin dependent (CMS/HCC); BMI 31.0-31.9,adult; Mixed hyperlipidemia; Essential hypertension Start: 02-22-2023 End: 02-22-2023 Patient encounter procedure Jacqui Michael [facility] Start: 02-03-2023 End: 02-03-2023 Patient encounter procedure Jacuqi PerezJesse Michael [facility] Start: 12-29-2022 End: 12-29-2022 Patient encounter procedure XIMENA Ata QUIGLEY [facility] Start: 12-28-2022 Patient encounter procedure Balaji Barber Work Phone: [facility] DO Work Phone: Start: 12-28-2022 ambulatory Annika Kaba Facility:[id number] Start: 11-21-2022 ambulatory Annika Kaba Facility:[id number] Start: 11-20-2022 ambulatory Annika Kaba Facility:[id number] Start: 11-19-2022 ambulatory Annika Kaba Facility:[id number] Start: 11-18-2022 ambulatory Annika Kaba Facility:[id number] Start: 11-18-2022 End: 11-21-2022 Evaluation and management of inpatient MARTHA Barber Work Phone: [facility] Work Phone: Start: 10-27-2022 End: 10-27-2022 ambulatory PHILL SIMPSON [facility] Start: 09-22-2022 End: 09-22-2022 [facility] Start: 09-11-[address] BARRY BARBER Facilit y:[facility]1 Start: 09-06-2022 End: 09-08-2022 Evaluation and management of inpatient DR LALI RIVERA . Facility:[facility] Start: 08-27-2022 End: 08-27-2022 ambulatory Ziggy Dean Other [facility] Other Start: 08-27-2022 Office outpatient ne w 45 minutes Ziggy Dean [facility] Start: 07-29-2022 End: 07-29-2022 Patient encounter procedure Jacqui Michael [facility] Start: 07-22-[address] BARRY Virk y:[facility]1 Start: 07-08-2022 End: 07-08-2022 Patient encounter procedure XIMENA QUIGLEY [facility] Start: 07-07-2022 End: 07-07-[address] SILVA MAXWELL Facility:[facility] Start: 07-06-2022 End: 07-06-2022 [facility] Start: 06-15-2022 End: 06-16-2022 ambulatory XIMENA QUIGLEY Facility:[facility] Start: 06-14-2022 End: 06-15-2022 ambulatory XIMENA QUIGLEY Facility:[facility] Start: 06-10-2022 End: 06-10-2022 Lab Drop off Jacqui Michael [facility] Start: 06-10-2022 End: 06-10-2022 Patient encounter procedure Jacqui Michael [facility] Start: 05-05-2022 End: 05-06-[address] ANITA KEYS Facility:[facility] Start: 04-16-2022 End: 04-16-2022 ambulatory MADI SANCHEZ Facility:[facility] Start: 04-15-2022 End: 04-28-[address] JOSE SON . Facility:[facility] Start: 04-13-2022 End: 04-13-2022 ambulatory MADI [facility] Start: 04-10-2022 End: 04-13-2022 Evaluation and management of inpatient DR JOSE SON . Facility:[facility] Start: 03-08-2022 End: 03-10-[address] BARRY BRABER Facility:[facility] Start: 03-05-2022 End: 03-08-[address] BARRY BARBER Facility:[facility] Start: 03-04-2022 End: 03-04-[address] JOSE SON . Facility:[facility] Start: 02-27-2022 End: 03-01-[address] JOSE SON . Facility:[facility] Start: 02-25-2022 End: 02-27-2022 Evaluation and management of inpatient DR BARRY BARBER Facility:[facility] Start: 02-16-2022 End: 02-16-2022 Patient encounter procedure Monteromariah BELL [facility] Start: 02-06-2022 End: 02-06-2022 Patient encounter procedure Lani Wasserman [facility] Start: 12-31-2021 End: 05-07-2022 Recurring Kylah BELL [facility] Start: 12-31-2021 End: 12-31-2021 Patient encounter procedure Lani Wasserman [facility] Start: 12-13-2021 End: 12-13-2021 ambulatory Smiley Davila Other [facility] Other Start: 12-13-2021 Office outpatient ne w 20 minutes Smiley Davila [facility] Start: 11-28-2021 End: 11-28-2021 ambulatory AGA RENEE Facility:[facility] Start: 10-07-2021 End: 10-08-[address] RENETTA RM Facility:[facility] Start: 09-23-2021 End: 09-24-[address] RENETTA RM Facility:[facility] Start: 08-24-2017 End: 08-25-2017 Ambulatory KASANDRA BROWN Facility:[facility] Procedures Date Procedure Procedure Detail Performing Clinician Start: 06-02-2024 Screening mammograph y bi 2-view breast inc cad Barry Barber MD Work Phone: Start: 04-04-2024 HMHP CBC WITH PLATEL ET NO DIFFERENTIAL Generic External Data Provider Start: 01-20-2024 C. DIFFICILE PCR Barry Barber MD Work Phone: Start: 01-17-2024 Hemoglobin glycosylated a1c Barry Barber MD Work Phone: Start: 11-08-2023 Urine culture II Barry Barber Work Phone: Start: 11-08-2023 Plain chest X-ray II Da nonicris Barber Work Phone: Start: 09-08-2023 End: 09-08-2023 Radex hip unilateral with pelvis 2-3 views Kayden Lee PA-C Work Phone: Start: 08-18-2023 panoramic radiographic image Emma Sosadariela DDS Work Phone: Start: 07-07-2023 End: 07-07-2023 Radiologic examination pelvis 1/2 views Ricpamela Jesus PA-C Other Phone: Start: 06-16-2023 ALL BASIC METABOLIC PANEL Austin Rivas MD Work Phone: Start: 06-14-2023 ALL BASIC METABOLIC PANEL Austin Rivas MD Work Phone: Start: 06-11-2023 ALL HGB HCT Jose Navarro er SOLE CUTTER Work Phone: Start: 06-09-2023 End: 06-09-2023 Radex hip unilateral with pelvis 2-3 views Kayden Lee PA-C Work Phone: Start: 04-29-2023 Echo tthrc r-t 2d w/ wom-mode compl spec&colr d Annika Kaba HUMAN RESOURCE CONSULTANT-NEGATIVE NOTCHER Work Phone: Start: 04-13-2023 Mammography Doreen 2 Start: 02-22-2023 Transurethral cystoscopy Jacqui Michael Start: 11-21-2022 Plain chest X-ray II Balaji Barber Work Phone: Start: 11-18-2022 Plain chest X-ray II Balaji Barber Work Phone: Start: 09-22-2022 Follow-up visit Follow-up SILVA KOROMA Start: 09-07-2022 Transfusion of Nonau tologous Red Blood Cells into Peripheral Vein, Percutaneous Approach DR RENETTA RM Start: 02-16-2022 Colonoscopy Colonoscopy Montero INOCENCIA Perez Start: 12-02-2020 Cystoscopy Jacqui Michael Start: 05-30-2020 Mammography Annika Blair h HUMAN RESOURCE CONSULTANT-NEGATIVE NOTCHER Work Phone: Start: 05-03-2020 Colonoscopic polypectomy Barry Barber Work Phone: Start: 02-02-2020 Colonoscopy Jose Conti NP Work Phone: Cholecystectomy Lani María tz Colonoscopy Lani Lisy Extraction of wisdom tooth D shelly Michel Barber Work Phone: H/O: hysterectomy Lani Howard rito Hernia repair Barry Barber Work Phone: History of hernia repair Luna lyle Lisy Hysterectomy Barry Barber Work Phone: Repair of hip Shaye Pittman Small intestine excision Juan Manuel Barber Work Phone: Plan of Treatment Date Care Activity Detail Author Start: 02-17-2032 Screening for malignant neoplasm of colon [facility] Start: 02-01-2030 Screening for malignant neoplasm of colon [facility] Start: 10-31-2024 Urine screening for protein Diabetes: Urine Protein Screening [facility] Start: 08-10-2024 Creatinine measurement Basic Metabolic Panel [facility] Start: 07-17-2024 End: 07-17-2024 Patient encounter procedure 07/17/2024 2:00 PM EDT Office Visit [facility] [address] [facility] [address] [place] [address] Barry Barber MD 112 [facility] [address] [place] [address] [facility] Start: 06-19-2024 End: 06-19-2024 Patient encounter procedure 06/19/2024 2:30 PM EST Appointment [facility] [address] [facility] [address] [place] [id number] [facility] Start: 06-16-2024 Creatinine measurement Basic Metabolic Panel [facility] Start: 06-01-2024 End: 06-01-2024 Patient encounter procedure 06/01/2024 4:50 PM EST Office Visit [facility] [address] [facility] [address] [place] [address] Colt Thomason DPM [address] [address] Diabetes mellitus due to underlying condition with diabetic polyneuropathy, 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 ([facility]) (Primary Dx); Pain due to onychomycosis of toenails of both feet; Xerosis cutis [facility] Comment on above: Diabetes mellitus due to underlying cond ition with diabetic polyneuropathy, unspecified whether senior care insulin use (CMS/HCC) (Primary Dx); Pain due to onychomycosis of toenails of both feet; Xerosis cutis Start: 05-18-2024 End: 05-18-2024 Patient encounter procedure 05/18/2024 3:20 PM EST Office Visit [facility] [address] [facility] [address] [place] [address] Colt Thomason DPM [address] [address] [facility] Start: 05-18-2024 Creatinine measurement [facility] Start: 05-18-2024 Potassium measurement Potassium Level [facility] Start: 05-12-2024 Lipid panel Lipid Profile [facility] Start: 05-10-2024 End: 05-10-2025 Natriuretic peptide B [Mass/volume] in Blood B-Type Natriuretic Peptide Lab Routine Nonrheumatic aortic valve stenosis Pulmonary hypertension (Multi) Chronic obstructive pulmonary disease, unspecified COPD type (Multi) Congestive heart failure, unspecified HF chronicity, unspecified heart failure type Expected: 05/10/2024 (Approximate), Expires: 05/10/2025 [facility] Work Phone: Comment on above: Expected: 05/10/2024 (Approximate), Expi res: 05/10/2025 Start: 05-10-2024 End: 05-10-2026 [facility] Transthoracic Transthoracic Echo Complete Echocardiography Routine Paroxysmal atrial fibrillation (Multi) Nonrheumatic aortic valve stenosis Current smoker Expected: 05/10/2024 (Approximate), Expires: 05/10/2026 [facility] Service Area Work Phone: Comment on above: Expected: 05/10/2024 (Approximate), Expi res: 05/10/2026 Start: 05-09-2024 End: 05-09-2024 Patient encounter procedure 05/09/2024 3:10 PM EST Office Visit [facility] [address] [facility] [address] [place] [phone] Jose Canela DO [address] [facility] [address], [address] [place] [address] [facility] Start: 04-29-2024 Echocardiography Echocardiogram [facility] Start: 04-19-2024 Medicare Annual Wellness (AWV) Medicare Annual Wellness (AWV) [facility] Start: 04-17-2024 Hemoglobin A1c measurement Diabetes: Hemoglobin A1C [facility] Start: 04-17-2024 End: 04-17-2024 Patient encounter procedure [facility] Comment on above: Arrived Start: 04-13-2024 Screening for malignant neoplasm of breast [facility] Start: 03-09-2024 End: 03-09-2024 Patient encounter procedure [facility] Comment on above: Xerosis cutis (Primary Dx); Diabetes mellitus due to underlying condition with diabetic polyneuropathy, unspecified whether senior care insulin use ([facility]); Pain due to onychomycosis of toenails of both feet Start: 01-24-2024 End: 01-24-2024 Patient encounter procedure 01/24/2024 2:30 PM EDT Office Visit [facility] [address] [facility] [address] [place] [address] Annika Kaba, HUMAN RESOURCE CONSULTANT-NEGATIVE NOTCHER [address] [facility] [address], [address] [place] [address] [facility] Start: 01-17-2024 End: 01-17-2024 Patient encounter procedure [facility] Comment on above: Arrived Start: 01-17-2024 End: 01-16-2025 Clostridioides difficile toxin A+B tcdA+tcdB genes [Presence] in Stool by MARRY with probe detection Clostridium difficile toxin Microbiology Routine Diarrhea, unspecified type Clostridium difficile colitis Expected: 01/17/2024 (Approximate), Expires: 01/16/2025 [facility] Work Phone: Comment on above: Expected: 01/17/2024 (Approximate), Expi res: 01/16/2025 Start: 01-13-2024 Hemoglobin A1c measurement Diabetes: Hemoglobin A1C [facility] Start: 01-10-2024 End: 01-10-2024 Patient encounter procedure 01/10/2024 2:30 PM EDT Office Visit [address] [place] [address] Annika Kaba, HUMAN RESOURCE CONSULTANT-NEGATIVE NOTCHER [address] [facility] [address], [address] [place] [address] [facility] Start: 01-02-2024 COVID-19 Vaccine ( season) COVID-19 Vaccine ( season) [facility] Start: 01-02-2024 Influenza vaccination Influenza Vaccine (#1) [facility] Start: 12-30-2023 End: 12-30-2023 Patient encounter procedure 12/30/2023 3:10 PM EDT Office Visit [facility] [address] [place] [phone] Colt Thomason, DPChris [address] [facility] [address] [place] [address] Xerosis cutis (Primary Dx); Diabetes mellitus due to underlying condition with diabetic polyneuropathy, 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 (CMS/HCC); Onychomycosis; Toe pain, bilateral [facility] Comment on above: Xerosis cutis (Primary Dx); Diabetes mellitus due to underlying condition with diabetic polyneuropathy, unspecified whether senior care insulin use (CMS/HCC); Onychomycosis; Toe pain, bilateral Start: 12-08-2023 RSV High Risk: (Elderly (60+) or Population) (1 - 1-dose 75+ series) RSV High Risk: (Elderly (60+) or Population) (1 - 1-dose 75+ series) [facility] Start: 11-19-2023 Echocardiography Echocardiogram [facility] Start: 11-17-2023 End: 11-17-2023 Patient encounter procedure 11/17/2023 1:30 PM EDT Office Visit [facility] [address] [place] [address] [facility] Start: 11-16-2023 Hemoglobin A1c measurement [facility] Start: 11-11-2023 [facility] Start: 11-10-2023 [facility] Start: 11-10-2023 [facility] Start: 11-09-2023 Referral to sap data analyst [facility] Start: 11-09-2023 [facility] Start: 11-08-2023 End: 11-08-2023 Hospital admission [facility] Start: 11-08-2023 [facility] Start: 11-08-2023 Bacteria identified in Urine by Culture [facility] Start: 11-08-2023 Urine culture Urine Culture [facility] Start: 09-08-2023 End: 09-08-2023 Patient encounter procedure [facility] Start: 08-19-2023 Glaucoma screening Diabetes: Retinopathy Screening [facility] Start: 08-18-2023 End: 08-18-2023 Patient encounter procedure [facility] Start: 08-17-2023 Hemoglobin A1c measurement Diabetes: Hemoglobin A1C [facility] Start: 07-26-2023 End: 07-25-2024 Basic metabolic 2000 panel - Serum or Plasma Basic Metabolic Panel Lab Routine Stage 3b chronic kidney disease ([facility]/HCC) Expected: 07/26/2023 (Approximate), Expires: 07/25/2024 [facility] Service Area Work Phone: Comment on above: Expected: 07/26/2023 (Approximate), Expi res: 07/25/2024 Start: 07-07-2023 End: 07-07-2023 Patient encounter procedure [facility] Start: 07-05-2023 End: 07-04-2024 XR Femur - right 2 Views XR FEMUR RIGHT MINIMUM 2 VIEWS Imaging Routine Closed displaced intertrochanteric fracture of right femur, initial encounter ([facility]) Expected: 07/05/2023, Expires: 07/04/2024 [employer] Work Phone: Comment on above: Expected: 07/05/2023, Expires: Start: 07-05-2023 End: 07-04-2024 XR Pelvis Single view XR PELVIS SINGLE VIEW Imaging Routine Closed displaced intertrochanteric fracture of right femur, initial encounter ([facility]) Expected: 07/05/2023, Expires: 07/04/2024 [employer] Work Phone: Comment on above: Expected: 07/05/2023, Expires: Start: 06-09-2023 End: 06-09-2023 Patient encounter procedure [facility] Start: 06-07-2023 End: 06-07-2024 XR Femur - right 2 Views XR FEMUR RIGHT MINIMUM 2 VIEWS Imaging Routine Closed displaced intertrochanteric fracture of right femur, initial encounter (HCC) Expected: 06/07/2023, Expires: 06/07/2024 [employer] Comment on above: Expected: 06/07/2023, Expires: Start: 06-07-2023 End: 06-07-2024 XR Pelvis and Hip - right Views XR HIP RIGHT W/ PELVIS MIN 2-3 VIEWS Imaging Routine Closed displaced intertrochanteric fracture of right femur, initial encounter ([facility]) Expected: 06/07/2023, Expires: 06/07/2024 [employer] Work Phone: Comment on above: Expected: 06/07/2023, Expires: Start: 05-12-2023 End: 05-12-2023 Patient encounter procedure 05/12/2023 2:30 PM EST Office Visit [facility] [address] [place] [address] Annika Kaba, HUMAN RESOURCE CONSULTANT-NEGATIVE NOTCHER [address] [place] [address] [facility] Start: 04-29-2023 End: 04-29-2023 Patient encounter procedure 04/29/2023 2:30 PM EST Appointment [facility] [address] [facility] [address] [place] [address] [facility] Start: 03-30-2023 End: 03-30-2024 Basic metabolic 2000 panel - Serum or Plasma Basic Metabolic Panel Lab Routine Paroxysmal atrial fibrillation (CMS/HCC) Expected: 03/30/2023 (Approximate), Expires: 03/30/2024 [facility] Service Area Work Phone: Comment on above: Expected: 03/30/2023 (Approximate), Expi res: 03/30/2024 Start: 03-30-2023 End: 03-30-2024 CBC panel - Blood by Automated count CBC Lab Routine Paroxysmal atrial fibrillation (CMS/HCC) Anticoagulated Expected: 03/30/2023 (Approximate), Expires: 03/30/2024 [facility] Work Phone: Comment on above: Expected: 03/30/2023 (Approximate), Expi res: 03/30/2024 Start: 03-30-2023 End: 03-30-2025 US Heart Transthoracic Transthoracic Echo (TTE) Complete Echocardiography Routine Nonrheumatic aortic valve stenosis Pulmonary hypertension (CMS/HCC) Expected: 03/30/2023 (Approximate), Expires: 03/30/2025 [facility] Work Phone: Comment on above: Expected: 03/30/2023 (Approximate), Expi res: 03/30/2025 Start: 01-01-2023 COVID-19 Vaccine () COVID-19 Vaccine () [facility] Start: 11-23-2022 Blood chemistry [facility] Start: 11-23-2022 [facility] Start: 11-22-2022 Blood chemistry [facility] Start: 11-22-2022 [facility] Start: 11-21-2022 Blood chemistry [facility] Start: 11-21-2022 End: 11-21-2022 [facility] Start: 11-20-2022 Blood chemistry [facility] Start: 11-20-2022 [facility] Start: 11-19-2022 Referral to what job titles mean [facility] Start: 11-19-2022 Blood chemistry [facility] Start: 11-19-2022 End: 11-19-2022 [facility] Start: 11-18-2022 Hospital admission [facility] Start: 11-18-2022 [facility] Start: 08-18-2022 Glaucoma screening Eye Exam [facility] Start: 10-04-2021 Screening for osteoporosis Bone Density Scan [facility] Start: 05-30-2021 Screening for malignant neoplasm of breast Mammogram [facility] Start: 10-04-2020 Screening for osteoporosis Bone Density Scan [facility] Start: 07-04-2020 Urine screening for protein Diabetes: Urine Protein Screening [facility] Start: 04-02-2016 Shingles (RZV) Vaccine (2 of 3) Shingles (RZV) Vaccine (2 of 3) [facility] Start: 04-02-2016 Zoster Vaccines (2 of 3) Zoster Vaccines (2 of 3) [facility] Start: 2008 Hepatitis B (HBV) Vaccine (optional start 60+ years) Hepatitis B (HBV) Vaccine (optional start 60+ years) [facility] Start: 2008 Hepatitis B Vaccines (1 of 3 - Risk 3-dose series) Hepatitis B Vaccines (1 of 3 - Risk 3-dose series) [facility] Start: 2008 RSV patients and/or patients aged 60+ years (1 - 1-dose 60+ series) RSV patients and/or patients aged 60+ years (1 - 1-dose 60+ series) [facility] Start: 2008 RSV vaccine (optional 60+ years) RSV vaccine (optional 60+ years) [facility] Start: 1998 Shingles (RZV) Vaccine (1 of 2) Shingles (RZV) Vaccine (1 of 2) [facility] Start: 1993 Screening for malignant neoplasm of colon [facility] Start: 1970 DTaP/Tdap/Td Vaccines (1 - Tdap) DTaP/Tdap/Td Vaccines (1 - Tdap) [facility] Start: 12-08-1967 Hepatitis A (HAV) Vaccine (optional start 19+ years) Hepatitis A (HAV) Vaccine (optional start 19+ years) [facility] Start: 12-08-1967 Hepatitis A Vaccines (1 of 2 - Risk 2-dose series) Hepatitis A Vaccines (1 of 2 - Risk 2-dose series) [facility] Start: 12-08-1967 Urine screening for protein Diabetes: Urine Protein Screening [facility] Start: 1966 Hepatitis C screening [facility] Start: 1966 Tetanus + diphtheria + acellular pertussis vaccine (product) Tdap Booster [facility] Start: 1958 Diabetic foot examination Diabetes: Foot Exam [facility] Start: 1958 Glaucoma screening Diabetes: Retinopathy Screening [facility] Start: 06-09-1949 COVID-19 Vaccine (#1) COVID-19 Vaccine (#1) [facility] Start: 1948 Glaucoma screening Eye Exam [facility] Start: 1948 Urine screening for protein Microalbumin [facility] Start: 1948 Creatinine measurement Creatinine Level [facility] Start: 1948 Diabetic foot examination Foot Exam [facility] Start: 1948 Hemoglobin A1c measurement Diabetes: Hemoglobin A1C [facility] Start: 1948 Lipid panel Lipid Panel [facility] Start: 1948 Medicare Annual Wellness Visit Medicare Annual Wellness Visit (AWV) [facility] Start: 1948 Potassium measurement Potassium Level [facility] Start: 1948 Pulmonary Function Testing Pulmonary Function Testing [facility] Start: 1948 Screening for malignant neoplasm of colon [facility] 25-hydroxyvitamin D2 [Mass/volume] in Serum or Plasma [facility] 25-hydroxyvitamin D3 [Mass/volume] in Serum or Plasma [facility] 25-Hydroxyvitamin D3+25-Hydroxyvitamin D2 [Mass/volume] in Serum or Plasma [facility] Calcium.ionized [Mass/volume] in Serum or Plasma by Ion-selective membrane electrode (ISE) [facility] Manganese [Mass/volu me] in Urine [facility] Manganese/Creatinine [Mass Ratio] in Urine [facility] Patient Education Heart Failure, Adult (DC) Budesonide and Formoterol Calcium Acetate Famotidine Calcitriol (Systemic) Know your Meds [facility] Work Phone: Patient referral [facility] Work Phone: Renal function 1999 panel - Serum or Plasma [facility] Renal function 1999 panel - Serum or Plasma [facility] End: 04-29-2023 US Heart Transthoracic [facility] Service Area Work Phone: Comment on above: Once for 1 Occurrences starting 04/29/20 23 until 04/29/2023 [facility] Immunizations Immunization Date Immunization Notes Care Provider [facility] 04-17-2024 Influenza, High-dose Seasonal, Quadrivalent, Preservative Free Barry Barber MD Work Phone: [facility] 05-20-2023 Pneumococcal conjuga te 20 valent (PCV20), polysaccharide [id number] conjugate, adjuvant, PF (IUG=065) Phe 1 [employer] Work Phone: 05-20-2023 tuberculin skin test ; unspecified formulation Phe 1 [employer] Work Phone: 05-18-2023 Hemoglobin A1C Elmo ambrose RN Work Phone: [facility] 03-01-2023 influenza virus vaccine, unspecified formulation Jacqui Lue [facility] 03-01-2023 Influenza, High-dose Seasonal, Quadrivalent, Preservative Free Jose Conti [employer] Work Phone: [facility] 02-05-2022 influenza virus vaccine, unspecified formulation Jacqui Lue [facility] 02-05-2022 Influenza, High-dose Seasonal, Quadrivalent, Preservative Free Jose Conti SOLE CUTTER Work Phone: [facility] 01-31-2022 influenza virus vaccine, unspecified formulation Jacqui Lue [facility] 01-31-2022 influenza, high dose seasonal, preservative-free Barry Barber Work Phone: [facility] [address] DO Work Phone: 03-05-2021 influenza virus vaccine, unspecified formulation Jacqui Lue [facility] 03-05-2021 influenza, high dose seasonal, preservative-free Barry B Barber Work Phone: [facility] 03-22-2020 influenza virus vaccine, unspecified formulation Jacqui Lue [facility] 03-15-2020 influenza virus vaccine, unspecified formulation Jacqui Lue [facility] 03-15-2020 influenza, high dose seasonal, preservative-free Barry B Barber Work Phone: [facility] 250 DO Work Phone: 02-09-2019 influenza virus vaccine, unspecified formulation Jacqui Lue [facility] 02-09-2019 influenza, high dose seasonal, preservative-free Barry B Barber Work Phone: [facility] 250 DO Work Phone: 02-17-2018 influenza virus vaccine, unspecified formulation Jacqui Lue [facility] 02-17-2018 influenza, high dose seasonal, preservative-free Barry B Barber Work Phone: [facility] 250 DO Work Phone: 01-25-2017 influenza virus vaccine, unspecified formulation Jacqui Lue [facility] 01-25-2017 influenza, high dose seasonal, preservative-free Barry B Barber Work Phone: [facility] 250 DO Work Phone: 02-19-2016 influenza virus vaccine, unspecified formulation Jacqui Lue [facility] 02-19-2016 influenza, injectabl e, quadrivalent, contains preservative Barry B Barber Work Phone: [facility] 250 DO Work Phone: 02-06-2016 zoster vaccine, live Jacqui L ue [facility] 02-03-2016 pneumococcal polysaccharide vaccine, 23 valent Jacqui Lue [facility] 04-12-2015 pneumococcal conjuga te vaccine, 13 valent Jacqui Michael [facility] 01-21-2015 pneumococcal polysaccharide vaccine, 23 valent Elmo Allen RN Work Phone: [facility] 01-21-2015 seasonal influenza, intradermal, preservative free Elmo Allen RN Work Phone: [facility] 02-05-2014 influenza, seasonal, injectable Jose Conti [employer] Work Phone: [facility] NEGATED: Highlighted row has not occurred!12-31-2021 influenza virus vaccine, unspecified formulation Lani Howardmetz [facility] Payers Date Payer Category Payer Unknown 2021 Medicaid [id number] 2014 Unknown [id number] 2011 Medicare [id number] 1959 Medicaid [id number] 2. [id number] 1959 Medicare [id number] 2.1 [id number] 1959 Self-pay 1959 Unknown [id number] 2.16.8 [id number] 1948 Unknown [id number] 2.16.84 0.1.914516.3.579.2.593 1948 Unknown [id number] 2.16.84 0.1.073453.3.579.2.593 1948 Unknown [id number] 2.16.84 0.1.069965.3.579.2.593 1948 Unknown [id number] 2.16.84 0.1.686573.3.579.2.593 1948 Unknown [id number] 2.16.84 0.1.456755.3.579.2.593 1948 Unknown [id number] 2.16.84 0.1.472569.3.579.2.593 1948 Unknown [id number] 2.16.84 0.1.883292.3.579.2.593 1948 Unknown [id number] 2.16.84 0.1.625115.3.579.2.593 1948 Unknown [id number] 2.16.84 0.1.358324.3.579.2.593 1948 Unknown [id number] 2.16.84 0.1.910552.3.579.2.593 1948 Unknown [id number] 2.16.84 0.1.148374.3.579.2.593 1948 Unknown [id number] 2.16.84 0.1.421303.3.579.2.593 1948 Unknown [id number] 2.16.84 0.1.474300.3.579.2.593 1948 Unknown [id number] 2.16.84 0.1.525982.3.579.2.593 1948 Unknown [id number] 2.16.84 0.1.223712.3.579.2.593 1948 Unknown [id number] 2.16.84 0.1.751099.3.579.2.593 1948 Unknown [id number] 2.16.84 0.1.029440.3.579.2.593 1948 Unknown [id number] 2.16.84 0.1.312442.3.579.2.593 1948 Unknown [id number] 2.16. 840.1.610249.3.579.2.356 1948 Unknown [id number] 2.16. 840.1.900736.3.579.2.356 1948 Unknown [id number] 2.16. 840.1.498535.3.579.2.356 1948 Unknown [id number] 2.16. 840.1.738281.3.579.2.356 1948 Unknown [id number] 2.16. 840.1.483931.3.579.2.356 1948 Unknown [id number] 2.16.8 40.1.565986.3.579.2.1286 1948 Unknown [id number] 2.. 840.1.439625.3.579.2.732 1948 Unknown [id number] 2.. 840.1.287103.3.579.2.732 1948 Unknown [id number] 2. 840.1.610873.3.579.2.732 1948 Unknown [id number] 2. 840.1.031627.3.579.2.732 1948 Unknown [id number] 2. 840.1.939209.3.579.2.732 1948 Unknown [id number] 2. 840.1.070714.3.579.2.732 1948 Unknown [id number] 2.. 840.1.068018.3.579.2.732 1948 Unknown [id number] 2.. 840.1.458227.3.579.2.732 1948 Unknown [id number] 2.16. 840.1.503081.3.579.2.732 1948 Unknown [id number] 2.16. 840.1.419149.3.579.2.732 1948 Unknown [id number] 2.. 840.1.486018.3.579.2.732 1948 Unknown [id number] 2.16. 840.1.936151.3.579.2.732 1948 Unknown [id number] 2.16. 840.1.384780.3.579.2.732 1948 Unknown [id number] 2.16. 840.1.639046.3.579.2.732 1948 Unknown [id number] 2.16. 840.1.798932.3.579.2.732 1948 Unknown [id number] 2.16. 840.1.400453.3.579.2.732 1948 Unknown [id number] 2.16. 840.1.358709.3.579.2.732 1948 Unknown [id number] 2.16. 840.1.340597.3.579.2.732 1948 Unknown [id number] 2.16. 840.1.441520.3.579.2.732 1948 Unknown [id number] 2.16. 840.1.331706.3.579.2.732 1948 Unknown [id number] 2.16. 840.1.998175.3.579.2.732 1948 Unknown [id number] 2.16.8 40.1.374361.3.579.2.1286 1948 Unknown [id number] 2.16.84 0.1.649586.3.579.2.1286 1948 Unknown [id number] 2.16.840 .1.014625.3.579.2.1286 1948 Unknown [id number] 2.16.8 40.1.720187.3.579.2.727 1948 Unknown [id number] 2.16.8 40.1.281804.3.579.2.727 1948 Unknown [id number] 2.16.8 40.1.712341.3.579.2.727 1948 Unknown [id number] 2.16.8 40.1.458359.3.579.2.727 1948 Unknown [id number] 2.16.8 40.1.913083.3.579.2.727 1948 Unknown [id number] 2.16.84 0.1.217627.3.579.2.1259 1948 Unknown [id number] 2.16.84 0.1.413704.3.579.2.1259 1948 Unknown [id number] 2.16.84 0.1.329089.3.579.2.1259 1948 Unknown [id number] 2.16.84 0.1.554682.3.579.2.1259 1948 Unknown [id number] 2.16.84 0.1.140997.3.579.2.1259 1948 Unknown [id number] 2.16.84 0.1.379319.3.579.2.1259 1948 Unknown [id number] 2.16.84 0.1.483480.3.579.2.1259 1948 Unknown [id number] 2.16.84 0.1.602883.3.579.2.1259 1948 Unknown [id number] 2.16.84 0.1.015137.3.579.2.1259 1948 Unknown [id number] 2.16.84 0.1.863817.3.579.2.1259 1948 Unknown [id number] 2.16.84 0.1.052644.3.579.2.1259 1948 Unknown [id number] 2.16.84 0.1.675054.3.579.2.1259 1948 Unknown [id number] 2.16.84 0.1.910009.3.579.2.1259 Medicare [id number] Unknown [id number] Social History Date Type Detail Facility Start: 03-30-2023 End: 12-06-2023 Sex Assigned At [facility] Other Start: 12-31-2021 Tobacco smoking status Light t obacco smoker (finding) [facility] Tobacco smoking status Never [facility] Start: 11-18-2022 End: 12-09-2023 Tobacco smoking status NHIS Smoker (finding) [facility] Start: 1950 Sex Assigned At Female F [facility] Start: 03-30-2023 End: 12-06-2023 Caffeine use Caffeine use [facility] Comment on above: 2 cups coffee daily most of the time; 1/2 ppd; Start: 12-29-2022 End: 03-15-2024 Tobacco smoking status Heavy tobacco smoker (finding) [facility] Start: 03-30-2023 End: 12-30-2023 Tobacco smoking status MNIS Smokes tobacco daily [facility] Start: 03-30-2023 End: 12-30-2023 Tobacco use and exposure Smokeless tobacco non-user [facility] Work Phone: Start: 03-30-2023 End: 05-10-2024 Alcohol intake Lifetime non-drinker (finding) [facility] Work Phone: Start: 03-30-2023 Gender identity Identifies as female gender (finding) [facility] Work Phone: Start: 03-30-2023 Sexual orientation Heterosexual (fin ding) [facility] Work Phone: Start: 03-20-2023 End: 05-10-2024 Exposure to SARS-CoV-2 (event) Not sure [facility] Start: 05-13-2023 Tobacco smoking stat us NHIS Ex-smoker [facility] Start: 05-19-2023 End: 06-01-2024 Alcohol intake Ex-drinker (finding) [facility] Start: 1950 [...] mm Gma Lg Strl [id number] - [id number] Start: 05-14-2023 Inject 1 each un gino the skin in the morning and 1 each before bedtime. [id number] Goals Date Patient Goal Desired Activity /State Functional Status Date Assessment Result Facility 03-15-2024 Functional Status N/A [facility] 11-08-2023 Functional status Patient is Pro gressing Toward Baseline [facility] Work Phone: 09-07-2023 Functional Status N/A [facility] 04-28-2023 Functional Status N/A [facility] 02-12-2023 Functional Status N/A [facility] 02-03-2023 Functional Status N/A [facility] 12-29-2022 Functional Status N/A [facility] 11-21-2022 Functional status Patient at Baseline [facility] Work Phone: 07-29-2022 Functional Status N/A [facility] 06-10-2022 Functional Status N/A [facility] 02-16-2022 Functional Status N/A [facility] 12-31-2021 Functional Status N/A [facility] Mental Status Date Assessment Result Facility 11-08-2023 Cognitive function Cognitive Sta tus Patient at Baseline [facility] Work Phone: 11-21-2022 Cognitive function Cognitive Sta tus Patient at Baseline [facility] Work Phone: Clinical Notes 04-02-2021 to 06-01-2024 Colt Thomason, DEVI - 06/01/2024 4:50 PM Lila Canela DO - 05/10/2024 11:20 AM ESTPatient InstructionsTelephone Encounter - KIA Osborn - 05/09/2024 11:33 AM EST Note Date & Type Note Facility 06-01-2024 History of Presen t illness Narrative Patient: [...] skin and fissures to feet and has intermittently been using prescribed or recommended uxcm-etd-hxerezt cream with positive improvement. Allergies: Allergies Allergen Reactions Bee Venom Other reaction(s): Swelling of body region Grapefruit Extract Unknown Lanolin Naproxen Unknown Other Other Reaction(s): Not available Pineapple Unknown Past Medical History: Past Medical History: Diagnosis Date Acute kidney injury superimposed on CKD ([facility]) 11/18/2023 Anxiety Arthritis Haddad's esophagus CHF (congestive heart failure) ([facility]) CHF exacerbation ([facility]) 11/18/2022 Admitted Chronic cough Colon polyp 05/2017 COPD (chronic obstructive pulmonary disease) ([facility]) COVID-19 Pneumonia, Acute on Chronic Resp. Failure, ELI (04/18/2021-04/22/2021) Depression ([facility]) Diabetes mellitus ([facility]) Gastritis GERD (gastroesophageal reflux disease) History of [...] 11/08/2023 ELI, Hypocalcemia, UTI, Low Mg Hyperlipidemia ([facility]) Hypertension ([facility]) New onset seizure ([facility]) 03/08/2022 Nonalcoholic fatty liver MARGARITA (obstructive sleep [...] , Rfl: ALPRAZolam (Xanax) 1 MG tablet, Take 1 tablet (1 mg) by mouth 3 (three) times a day as needed for anxiety, Disp: 90 tablet, Rfl: 0 AMINO ACIDS [...] IN THE MORNING, Disp: 90 tablet, Rfl: 3 calcitriol (Rocaltrol) 0.5 MCG capsule, Take 0.5 [...] 90 capsule, Rfl: 3 Continuous Blood Gluc Sensor (FreeStyle Lilliam 2 Sensor) [facility], 1 each every 14 (fourteen) days, Disp: 6 each, Rfl: 3 dapagliflozin (Farxiga) 10 MG, TAKE 1 TABLET BY MOUTH IN THE MORNING, Disp: 30 tablet, Rfl: 3 denosumab (Prolia) 60 MG/ML solution [...] mg by mouth Daily, Disp: , Rfl: FLUoxetine (PROzac) 40 MG capsule, Take 1 capsule (40 mg) by mouth in the morning., Disp: 100 capsule, Rfl: 3 Fluticasone-Salmeterol 250-50 MCG/ACT aerosol powder , INHALE 1 DOSE BY MOUTH EVERY 12 HOURS, Disp: 60 each, Rfl: 0 hyoscyamine (Levsin) 0.125 MG SL tablet, Take 1 tablet (0.125 mg) by mouth every 6 (six) hours if needed for cramping, Disp: 60 tablet, Rfl: 2 Lactobacillus pack, Take 1 tablet by mouth every 8 (eight) hours., Disp: , Rfl: levETIRAcetam (Keppra) 250 MG tablet, TAKE 1 TABLET BY MOUTH TWICE DAILY (IN THE MORNING AND BEFORE BEDTIME), Disp: 180 tablet, Rfl: 0 MAGnesium-Oxide 400 (240 Mg) MG tablet, Take [...] mg by mouth Daily, Disp: , Rfl: ondansetron (Zofran) 4 MG tablet, TAKE 1 TABLET BY MOUTH EVERY 6 HOURS NEEDED FOR NAUSEA FOR VOMITING, Disp: 120 tablet, Rfl: 0 oxygen (O2) gas, Inhale 3 L/min continuously. [...] , Rfl: tiZANidine (Zanaflex) 4 MG tablet, TAKE 1 TABLET BY MOUTH EVERY 8 HOURS NEEDED FOR MUSCLE SPASM, Disp: 90 tablet, Rfl: 0 Social History: Social History Socioeconomic History Marital [...] 10 min Stress: Stress Concern Present (12/06/2023) [employer] - Occupational Stress Questionnaire Feeling of Stress : To some extent Social Connections: Socially Isolated (12/06/2023) Social Connection and Isolation Panel [NHANES] Frequency of Communication with Friends and Family: Once a week Frequency of Social Gatherings with Friends and Family: Three times a week Attends Taoist Services: Never Active Member of Clubs or [...] growth with thin shiny atrophic skin bilaterally. Slightly diminished dry skin to feet bilaterally VASC: positive DP and negative PT pedal pulses NEURO: 5.07 [place] Earnest monofilament test intact to digits and forefoot bilaterally 125Hz tuning fork diminished to 1st MPJ bilaterally ORTHO: Positive pain on palpation to toenails of the left 1,2,3,4,5 toes and right 1,2,3,4,5 toes ASSESSMENT 1. Diabetes mellitus due to underlying condition with diabetic polyneuropathy, unspecified whether senior care insulin use ([facility]) 2. Pain due to onychomycosis of toenails of both feet 3. Xerosis cutis PLAN Discussed proper foot care with patient today. Debride nails in length and thickness digits 1 through 10 Patient educated today on proper diabetic foot care including monitoring feet daily for any signs of infection openings in the skin or irregularities to both feet. Patient had a diabetic neurological exam today to both their feet and discussed proper shoe gear. Pt encouraged to continue with hydrating creams to feet with offer for medication and/or prescription refill. Colt Thomason DPM documented in this encounter [facility] 05-10-2024 History of Presen t illness Narrative Subjective Kate Hagen is a 73 y.o. female Chief Complaint Follow-up 73-year-old female returns for follow-up, initially seen by Dr. Arriaga in consultation on November 07 of last year now transferring to my service upon his assisted. In the interim, she fell and broke her hip as well as her jaw, she was treated initially at [facility] and transferred to [facility] and underwent hip repair; there was no surgical intervention for her left jaw. She is otherwise ambulating and doing well. She does have mild to moderate aortic valve stenosis that was discovered in one of her hospitalizations at [facility], subsequent referral to Dr. Arriaga details of which are reviewed in his note. She also has paroxysmal atrial fibrillation remains on low-dose Eliquis, chronic kidney disease with most recent creatinine 2.49, COPD, ongoing tobacco use, chronic ambulatory oxygen (also smokes with nasal oxygen), heart failure with preserved ejection fraction. She denies angina or ACS events, denies any bleeding or thromboembolic events Long discussion regards to aortic stenosis and its progression and potential interventions if necessary. Also counseled for 5 minutes today on tobacco cessation as well as conversation in regards to heart failure with preserved ejection fraction and concomitant aortic stenosis as well as need to routinely follow with nephrology for CKD. Recommendations: Elective echocardiogram to reassess aortic valve physiology, BNP, follow-up in 6 months with nurse practitioner Review of Systems All other systems reviewed and are negative. Vitals: 05/10/24 1216 BP: 122/68 BP Location: Right arm Patient Position: Sitting Pulse: 74 Weight: 66 kg (145 lb 9.6 oz) Height: 1.524 m (5') Objective Physical Exam Constitutional: Appearance: Normal appearance. HENT: Nose: Nose normal. Neck: Vascular: No carotid bruit. Cardiovascular: Rate and Rhythm: Normal rate. Pulses: Normal pulses. Heart sounds: Murmur heard. Systolic murmur is present with a grade of 2/6. Pulmonary: Effort: Pulmonary effort is normal. Comments: Mild crackles Abdominal: General: Bowel sounds are normal. Palpations: Abdomen is soft. Musculoskeletal: General: Normal range of motion. Cervical back: Normal range of motion. Right lower leg: No edema. Left lower leg: No edema. Skin: General: Skin is warm and dry. Neurological: General: No focal deficit present. Mental Status: She is alert. Psychiatric: Mood and Affect: Mood normal. Behavior: Behavior normal. Thought Content: Thought content normal. Judgment: Judgment normal. Allergies Patient has no known allergies. Current Medications Current Outpatient Medications: ALPRAZolam XR (Xanax XR) 1 mg 24 hr tablet, Take 1 tablet (1 mg) by mouth once daily as needed. Do not crush, chew, or split., Disp: , Rfl: apixaban (Eliquis) 2.5 mg tablet, Take 1 tablet (2.5 mg) by mouth 2 times a day., Disp: 60 tablet, Rfl: 11 atorvastatin (Lipitor) 20 mg tablet, Take 1 tablet (20 mg) by mouth once daily., Disp: , Rfl: brexpiprazole (Rexulti) 1 mg tablet, Take 1 tablet (1 mg) by mouth once daily at bedtime., Disp: , Rfl: bumetanide (Bumex) 2 mg tablet, Take 1 tablet (2 mg) by mouth once daily., Disp: , Rfl: calcium carbonate-vit D3-min 600 mg calcium- 400 unit tablet, Take 1 tablet by mouth twice a day., Disp: , Rfl: dapagliflozin propanediol (Farxiga) 10 mg, Take 1 tablet (10 mg) by mouth once daily., Disp: , Rfl: dulaglutide (Trulicity) 0.75 mg/0.5 mL pen injector, Inject 0.75 mg under the skin 1 (one) time per week., Disp: , Rfl: estradiol (Estrace) 0.01 % (0.1 mg/gram) vaginal cream, 2 times a week., Disp: , Rfl: FLUoxetine (PROzac) 40 mg capsule, Take 1 capsule (40 mg) by mouth once daily., Disp: , Rfl: HYDROcodone-acetaminophen (Saranac) 5-325 mg tablet, Take 1 tablet by mouth every 6 hours if needed for severe pain (7 - 10)., Disp: , Rfl: levETIRAcetam (Keppra) 500 mg tablet, Take 1 tablet (500 mg) by mouth 2 times a day., Disp: , Rfl: magnesium oxide (Mag-Ox) 400 mg tablet, 1 tablet (400 mg) 2 times a day., Disp: , Rfl: metoprolol tartrate (Lopressor) 50 mg tablet, Take 1 tablet by mouth 2 times a day., Disp: , Rfl: multivitamin tablet, Take 1 tablet by mouth once daily., Disp: , Rfl: ondansetron (Zofran) 4 mg tablet, Take 1 tablet (4 mg) by mouth every 8 hours if needed for nausea or vomiting., Disp: , Rfl: oxygen (O2) gas therapy, Inhale 1 each continuously., Disp: , Rfl: pantoprazole (ProtoNix) 40 mg EC tablet, Take 1 tablet (40 mg) by mouth 2 times a day. Do not crush, chew, or split., Disp: , Rfl: potassium chloride CR 20 mEq ER tablet, Take 1 tablet (20 mEq) by mouth once daily., Disp: , Rfl: promethazine (Phenergan) 25 mg tablet, Take 1 tablet (25 mg) by mouth every 6 hours if needed for nausea or vomiting., Disp: , Rfl: tiZANidine (Zanaflex) 4 mg capsule, Take 1 capsule (4 mg) by mouth 3 times a day as needed., Disp: , Rfl: vitamins A,C,J-kwtu-wxssqp 2,148 mcg-113 mg-45 mg-17.4mg tablet, Take 1 capsule by mouth once daily., Disp: , Rfl: Assessment/Plan 1. Paroxysmal atrial fibrillation (Multi) Follow Up In Cardiology 2. Nonrheumatic aortic valve stenosis 3. Pulmonary hypertension (Multi) 4. Mixed hyperlipidemia 5. Essential hypertension 6. Anticoagulated 7. Diabetes mellitus type II, non insulin dependent (Multi) 8. Stage 3b chronic kidney disease (Multi) 9. Chronic obstructive pulmonary disease, unspecified COPD type (Multi) 10. Body mass index 28.0-28.9, adult 11. Current smoker 12. Congestive heart failure, unspecified HF chronicity, unspecified heart failure type Scribe Attestation By signing my name below, Julianna Rivas RN , Scribe attest that this documentation has been prepared under the direction and in the presence of Jose Canela DO. Provider Attestation - Scribe documentation All medical record entries made by the Scribe were at my direction and personally dictated by me. I have reviewed the chart and agree that the record accurately reflects my personal performance of the history, physical exam, discussion and plan. documented in this encounter [facility] Work Phone: 05-10-2024 Instructions Julianna Rubio RN - 05/10/2024 11:20 AM EST Please bring all medicines, vitamins, and herbal supplements with you when you come to the office. Prescriptions will not be filled unless you are compliant with your follow up appointments or have a follow up appointment scheduled as per instruction of your physician. Refills should be requested at the time of your visit. BMI was above normal measurement. Current weight: 66 kg (145 lb 9.6 oz) Weight change since last visit (-) denotes wt loss 1.6 lbs Weight loss needed to achieve BMI 25: 17.9 Lbs Weight loss needed to achieve BMI 30: -7.7 Lbs Provided instructions on dietary changes Provided instructions on exercise. documented in this encounter [facility] Work Phone: 05-09-2024 Telephone encounter Note OARRS reviewed, Rx sent into patient's pharmacy. [facility] 05-09-2024 Miscellaneous Notes OARRS reviewed, Rx sent into patient's pharmacy. documented in this encounter [facility] 04-24-2024 Telephone encounter Note Zofran sent. [facility] 04-24-2024 Miscellaneous Notes Imani calzada. documented in this encounter [facility] 04-17-2024 History of Presen t illness Narrative Images from the original note were not included. HPI Follow-up Additional comments: Controlled/pain med Med Refill Additional comments: [place]-- [facility] [place] Last edited by Ginger Jose LPN on 04/17/2024 1:48 PM. Subjective Patient ID: Kate Hagen is a 73 y.o. female who presents for Diabetes, Follow-up (Controlled/pain med), prolia injection, and Med Refill ([place]-- [facility] [place]). Diabetes Mellitus Patient presents for follow up of diabetes. Current symptoms include: hypoglycemia . Patient denies foot ulcerations, polydipsia, polyuria, and vomiting. Evaluation to date has included: fasting blood sugar, fasting lipid panel, hemoglobin A1C, and microalbuminuria. Home sugars: BGs range between 90 and 115 Diabetes Associated symptoms include fatigue and weakness. Pertinent negatives for diabetes include no chest pain. Med Refill Associated symptoms include arthralgias, fatigue and weakness. Pertinent negatives include no chest pain, chills, coughing, diaphoresis or fever. Current Outpatient Medications on File Prior to Visit Medication Sig Dispense Refill acetaminophen (Tylenol) 500 MG tablet Take 1,000 mg by mouth albuterol (2.5 MG/3ML) 0.083% nebulizer solution Take 2.5 mg by nebulization every 6 (six) hours if needed for wheezing or shortness of breath. albuterol HFA (Ventolin HFA) 90 mcg/act inhaler Inhale 2 puffs every 4 (four) hours if needed for wheezing or shortness of breath 18 g 5 Alcohol Swabs (B-D SINGLE USE SWABS REGULAR) pads Apply 1 Swab topically 1 (one) time each day. ALPRAZolam (Xanax) 1 MG tablet TAKE 1 TABLET BY MOUTH THREE TIMES DAILY NEEDED FOR ANXIETY 90 tablet 0 AMINO ACIDS PO Take 15 g by mouth every 8 (eight) hours. ammonium lactate (Amlactin) 12 % cream APPLY IF NEEDED TWICE DAILY TO DRY SKIN ON FEET 280 g 0 atorvastatin (Lipitor) 20 MG tablet Take 1 tablet (20 mg) by mouth Daily 90 tablet 3 Brexpiprazole (Rexulti) 1 MG tablet Take 1 tablet by mouth Daily 100 tablet 3 bumetanide (Bumex) 2 MG tablet TAKE 1 TABLET BY MOUTH IN THE MORNING 90 tablet 0 calcitriol (Rocaltrol) 0.5 MCG capsule Take 0.5 mcg by mouth Daily calcium acetate (Phoslo) 667 MG capsule TAKE 2 CAPSULES BY MOUTH THREE TIMES DAILY WITH MEALS FOR 30 DAYS Calcium Carbonate-Vit D-Min (Calcium 600+D Plus Minerals) 600-400 MG-UNIT tablet Take 1 tablet by mouth in the morning and 1 tablet in the evening. calcium citrate 333 MG tablet Take 2 tablets (666 mg) by mouth in the morning and 2 tablets (666 mg) in the evening and 2 tablets (666 mg) before bedtime. 180 tablet 5 cholecalciferol (Vitamin D-3) 25 MCG (1000 UT) capsule Take 1 capsule (25 mcg) by mouth Daily 90 capsule 3 Continuous Blood Gluc Acid Bleacher (FreeStyle Lilliam 2 Richardson) device 1 each in the morning and 1 each at noon and 1 each in the evening and 1 each before bedtime. 1 each 0 Continuous Blood Gluc Sensor (FreeStyle Lilliam 2 Sensor) misc 1 each every 14 (fourteen) days 6 each 3 dapagliflozin (Farxiga) 10 MG TAKE 1 TABLET BY MOUTH IN THE MORNING 30 tablet 3 denosumab (Prolia) 60 MG/ML solution prefilled syringe Inject 60 mg under the skin every 6 (six) months. diphenhydrAMINE (BENADryl) 25 MG capsule Take 25 mg by mouth as needed at bedtime for itching or allergies. dulaglutide (Trulicity) 0.75 MG/0.5ML solution pen-injector Inject 0.75 mg under the skin 1 (one) time per week Eliquis 2.5 MG tablet Take 2.5 mg by mouth in the morning and 2.5 mg before bedtime. estradiol (Estrace) 0.1 MG/GM vaginal cream APPLY A PEA SIZE AMOUNT TO URETHRA OR INNER VAGINA 3 TIMES A WEEK FOR 1 MONTH THEN 2 TIMES A WEEK FOR MAINTENANCE famotidine (Pepcid) 20 MG tablet Take 20 mg by mouth Daily FLUoxetine (PROzac) 40 MG capsule Take 1 capsule (40 mg) by mouth in the morning. 100 capsule 3 Fluticasone-Salmeterol (Advair Diskus) 250-50 MCG/ACT aerosol powder Inhale 1 puff every 12 (twelve) hours 1 each 5 hyoscyamine (Levsin) 0.125 MG SL tablet Take 1 tablet (0.125 mg) by mouth every 6 (six) hours if needed for cramping 60 tablet 2 Lactobacillus pack Take 1 tablet by mouth every 8 (eight) hours. levETIRAcetam (Keppra) 250 MG tablet TAKE 1 TABLET BY MOUTH TWICE DAILY (IN THE MORNING AND BEFORE BEDTIME) 180 tablet 0 MAGnesium-Oxide 400 (240 Mg) MG tablet Take 1 tablet by mouth twice daily 180 tablet 3 metoprolol tartrate (Lopressor) 50 MG tablet Take 1 tablet by mouth twice daily 180 tablet 3 Multiple Vitamins-Minerals (EYE VITAMINS PO) Take 1 tablet by mouth 1 (one) time each day Myrbetriq 50 MG 24 hr tablet Take 50 mg by mouth Daily oxygen (O2) gas Inhale 3 L/min continuously. via nasal canula pantoprazole (ProtoNix) 40 MG EC tablet Take 1 tablet (40 mg) by mouth in the morning and 1 tablet (40 mg) before bedtime. 180 tablet 3 potassium chloride CR (K-Tab) 20 MEQ ER tablet Take 1 tablet (20 mEq) by mouth Daily 100 tablet 3 promethazine (Phenergan) 25 MG tablet TAKE 1 TABLET BY MOUTH EVERY 6 HOURS NEEDED FOR NAUSEA FOR VOMITING 120 tablet 0 SV Iron 325 (65 Fe) MG tablet tiZANidine (Zanaflex) 4 MG tablet TAKE 1 TABLET BY MOUTH EVERY 8 HOURS NEEDED FOR MUSCLE SPASM 90 tablet 0 [] HYDROcodone-acetaminophen (Saranac) 5-325 MG tablet Take 1 tablet by mouth every 6 (six) hours if needed for severe pain for up to 7 days 28 tablet 0 No current facility-administered medications on file prior to visit. I have reviewed and reconciled the history and medication list with the patient today. Allergies Allergen Reactions Bee Venom Other reaction(s): Swelling of body region Grapefruit Extract Unknown Lanolin Naproxen Unknown Other Other Reaction(s): Not available Pineapple Unknown Social History Tobacco Use Smoking status: Every Day Current packs/day: 1.00 Average packs/day: 1 pack/day for 50.0 years (50.0 ttl pk-yrs) Types: Cigarettes Smokeless tobacco: Never Substance Use Topics Alcohol use: Not Currently Alcohol/week: 2.0 standard drinks of alcohol Types: 2 Standard drinks or equivalent per week Comment: Caffeine intake: 1-2 cups per day, 2-3 cups a week Drug use: Never Family History Problem Relation Name Age of Onset Hypertension Mother Heart disease Mother Stroke Mother Hypertension Father Heart disease Father Past Medical History: Diagnosis Date Acute kidney injury superimposed on CKD ([facility]) 11/18/2023 Anxiety Arthritis Haddad's esophagus CHF (congestive heart failure) ([facility]) CHF exacerbation ([facility]) 11/18/2022 Admitted Chronic cough Colon polyp 05/2017 COPD (chronic obstructive pulmonary disease) ([facility]) COVID-19 Pneumonia, Acute on Chronic Resp. Failure, ELI (04/18/2021-04/22/2021) Depression ([facility]) Diabetes mellitus ([facility]) Gastritis GERD (gastroesophageal reflux disease) History of [...] 11/08/2023 ELI, Hypocalcemia, UTI, Low Mg Hyperlipidemia ([facility]) Hypertension ([facility]) New onset seizure ([facility]) 03/08/2022 Nonalcoholic fatty liver MARGARITA (obstructive sleep apnea) Ventral hernia Past Surgical History: Procedure Laterality Date BREAST SURGERY Right 2015 lumpectomy CHOLECYSTECTOMY 2015 COLONOSCOPY W/ POLYPECTOMY 02/02/2020 COLONOSCOPY W/ POLYPECTOMY 05/2017 CT ANGIO HEAD 05/14/2023 CT ANGIO HEAD 05/14/2023 ESOPHAGOGASTRODUODENOSCOPY 08/02/2018 with biopsy ESOPHAGOGASTRODUODENOSCOPY 12/21/2019 with biopsy HYSTERECTOMY 1995 UMBILICAL HERNIA REPAIR WOUND DEBRIDEMENT 2015 Visit Vitals BP 130/66 Pulse 75 Ht 5' 3 Wt 139 lb SpO2 96% BMI 24.62 kg/m Smoking Status Every Day BSA 1.67 m Review of Systems Constitutional: Positive for fatigue. Negative for chills, diaphoresis and fever. Respiratory: Negative for cough. Cardiovascular: Negative for chest pain. Musculoskeletal: Positive for arthralgias. Neurological: Positive for weakness. Objective Physical Exam Constitutional: General: She is not in acute distress. Appearance: She is obese. She is ill-appearing. She is not diaphoretic. HENT: Head: Atraumatic. Right Ear: Tympanic membrane normal. Left Ear: Tympanic membrane normal. Nose: Nose normal. Comments: Oxygen per NC Mouth/Throat: Mouth: Mucous membranes are moist. Pharynx: Oropharynx is clear. Eyes: Pupils: Pupils are equal, round, and reactive to light. Cardiovascular: Rate and Rhythm: Normal rate and regular rhythm. Heart sounds: Murmur heard. Pulmonary: Effort: Pulmonary effort is normal. No respiratory distress. Breath sounds: Rhonchi present. No wheezing. Abdominal: General: Bowel sounds are normal. Palpations: Abdomen is soft. Musculoskeletal: Cervical back: Neck supple. Right lower le+ Edema present. Left lower le+ Edema present. Skin: General: Skin is warm and dry. Neurological: General: No focal deficit present. Mental Status: She is alert and oriented to person, place, and time. Psychiatric: Mood and Affect: Mood normal. Behavior: Behavior normal. Assessment/Plan Diagnoses and all orders for this visit: Acute bronchitis, unspecified organism - cefdinir (Omnicef) 300 MG capsule; Take 1 capsule (300 mg) by mouth in the morning and 1 capsule (300 mg) before bedtime. Do all this for 7 days. Age-related osteoporosis without current pathological fracture ([facility]) - denosumab (Prolia) injection 60 mg Flu vaccine need - Influenza, high-dose seasonal, quadrivalent, PF (DEH716) (Fluzone High Dose [place] 0.7mL dose) CKD (chronic kidney disease) stage 4, GFR 15-29 ml/min ([facility]) Follow up in about 3 months (around 07/16/2024) for Routine F/U. documented in this encounter [facility] 04-05-2024 Telephone encounter Note Resent [facility] 04-05-2024 Miscellaneous Notes Resent Jazzmine alarcon called since she has not had norco filled since November 2023 her ins co. Considers this a new start she will need a different rx sent with a qty for 7 days instead of the 15 days documented in this encounter [facility] 04-05-2024 Telephone encounter Note Jazzmine alarcon called since she has not had norco filled since November 2023 her ins co. Considers this a new start she will need a different rx sent with a qty for 7 days instead of the 15 days [facility] 04-05-2024 Telephone encounter Note OARRS reviewed, Rx sent into patient's pharmacy. [facility] 04-05-2024 Miscellaneous Notes OARRS reviewed, Rx sent into patient's pharmacy. documented in this encounter [facility] 03-15-2024 Hospital Discharg e instructions Patient Education [...] Treatment for this condition includes: Antibiotic medicine. Pnov-lqn-ijkvzwd medicines to treat discomfort. Drinking enough water [...] Follow these instructions at home: Medicines Take jmwx-ffd-vgmsbpe and prescription medicines only as told by [...] provider. Document Revised: 11/24/2020 Document Reviewed: 11/29/2020 [employer] Patient Education 2023 [employer]. Follow Up Care 09/07/2023 16:04:03 With:Alec XIE, CARLY [place], [place] Address: When: Unknown [facility] 03-15-2024 Note Patient Education Obstetrics and [...] this condition includes: ??? Antibiotic medicine. ??? Fgyi-kgu-ummovop medicines to treat discomfort. ??? Drinking enough [...] these instructions at home: Medicines ??? Take tium-owf-nuyviyc and prescription medicines only as told by [...] sure you di (more content not included)... [facility] 03-09-2024 History of Presen t illness Narrative [...] has periodically been using prescribed or recommended jovz-mqz-dwwxilc cream with some improvement. Allergies: Allergies Allergen Reactions Bee Venom Other reaction(s): Swelling of body region Grapefruit Extract Unknown Lanolin Naproxen Unknown Other Other Reaction(s): Not available Pineapple Unknown Past Medical History: Past Medical History: Diagnosis Date Acute kidney injury superimposed on CKD ([facility]) 11/18/2023 Anxiety Arthritis Haddad's esophagus CHF (congestive heart failure) ([facility]) CHF exacerbation ([facility]) 11/18/2022 Admitted Chronic cough Colon polyp 05/2017 COPD (chronic obstructive pulmonary disease) ([facility]) COVID-19 Pneumonia, Acute on Chronic Resp. Failure, ELI (04/18/2021-04/22/2021) Depression ([facility]) Diabetes mellitus ([facility]) Gastritis GERD (gastroesophageal reflux disease) History of [...] 11/08/2023 ELI, Hypocalcemia, UTI, Low Mg Hyperlipidemia ([facility]) Hypertension ([facility]) New onset seizure ([facility]) 03/08/2022 Nonalcoholic fatty liver MARGARIAT (obstructive sleep apnea) Ventral hernia Medications: Current [...] 90 capsule, Rfl: 3 Continuous Blood Gluc Acid Bleacher (FreeStyle Lilliam 2 Richardson) device, 1 each in the morning and [...] 10 min Stress: Stress Concern Present (12/06/2023) [employer] - Occupational Stress Questionnaire Feeling of Stress : To some extent Social Connections: Socially Isolated (12/06/2023) Social Connection and Isolation Panel [NHANES] Frequency of Communication with Friends and Family: Once a week Frequency of Social Gatherings with Friends and Family: Three times a week Attends Taoist Services: Never Active Member of Clubs or [...] and negative PT pedal pulses NEURO: 5.07 [place] Earnest monofilament test intact to digits and forefoot bilaterally 125Hz tuning fork diminished to 1st MPJ bilaterally ORTHO: Positive pain on palpation to nails 1 through 10 ASSESSMENT 1. Xerosis cutis 2. Diabetes mellitus due to underlying condition with diabetic polyneuropathy, unspecified whether senior care insulin use ([facility]) 3. Pain due to onychomycosis of toenails [...] Colt Thomason DPM documented in this encounter [facility] 01-21-2024 Telephone encounter Note Kate Hagen 46: Dr. Barber: Ginger from Lab at [facility] [phone] ext. [phone]: Critical lab result: positive CDIFF. Call to Aga Renee. Pt is already on Flagyl since 01/17/2024. Continue with current prescription [facility] 01-21-2024 Miscellaneous Notes Kate Hagen 46: Dr. Barber: Ginger from Lab at [facility] [phone] ext. [phone]: Critical lab result: positive CDIFF. Call to Aga Renee. Pt is already on Flagyl since 01/17/2024. Continue with current prescription documented in this encounter [facility] 01-17-2024 History of Presen t illness Narrative Images from the original note were not included. HPI Follow-up Additional comments: Pain med Med Refill Additional comments: Hydrocodone-- [facility] [place] Last edited by Ginger Jose LPN on 01/17/2024 3:31 PM. Subjective Patient ID: Kate Hagen is a 73 y.o. female who presents for Follow-up (Pain med), Diabetes, and Med Refill (Hydrocodone-- [facility] [place]). Diabetes Mellitus Patient presents for follow up of diabetes. Current symptoms include: hypoglycemia . Patient denies foot ulcerations, polydipsia, polyuria, and vomiting. Evaluation to date has included: fasting blood sugar, fasting lipid panel, hemoglobin A1C, and microalbuminuria. Home sugars: BGs range between 90 and 110 Pt is currently taking liquid vancomycin she had at home from prior hosp stay her ins co scherer not cover vanco tablet Diabetes Associated symptoms include fatigue and weakness. Pertinent negatives for diabetes include no chest pain. Med Refill Associated symptoms include arthralgias, fatigue and weakness. Pertinent negatives include no chest pain, chills, coughing, diaphoresis or fever. Current Outpatient Medications on File Prior to Visit Medication Sig Dispense Refill acetaminophen (Tylenol) 500 MG tablet Take 1,000 mg by mouth albuterol (2.5 MG/3ML) 0.083% nebulizer solution Take 2.5 mg by nebulization every 6 (six) hours if needed for wheezing or shortness of breath. albuterol HFA (Ventolin HFA) 90 mcg/act inhaler Inhale 2 puffs every 4 (four) hours if needed for wheezing or shortness of breath 18 g 5 Alcohol Swabs (B-D SINGLE USE SWABS REGULAR) pads Apply 1 Swab topically 1 (one) time each day. ALPRAZolam (Xanax) 1 MG tablet TAKE 1 TABLET BY MOUTH THREE TIMES DAILY NEEDED FOR ANXIETY 90 tablet 2 AMINO ACIDS PO Take 15 g by mouth every 8 (eight) hours. ammonium lactate (Lac-Hydrin) 12 % lotion Apply 1 application topically if needed for dry skin Apply to feet twice daily 350 mL 0 atorvastatin (Lipitor) 20 MG tablet Take 1 tablet (20 mg) by mouth Daily 90 tablet 3 Brexpiprazole (Rexulti) 1 MG tablet Take 1 tablet by mouth Daily 100 tablet 3 bumetanide (Bumex) 2 MG tablet Take 1 tablet (2 mg) by mouth Daily calcitriol (Rocaltrol) 0.5 MCG capsule Take 0.5 mcg by mouth Daily calcium acetate (Phoslo) 667 MG capsule TAKE 2 CAPSULES BY MOUTH THREE TIMES DAILY WITH MEALS FOR 30 DAYS Calcium Carbonate-Vit D-Min (Calcium 600+D Plus Minerals) 600-400 MG-UNIT tablet Take 1 tablet by mouth in the morning and 1 tablet in the evening. calcium citrate 333 MG tablet Take 2 tablets (666 mg) by mouth in the morning and 2 tablets (666 mg) in the evening and 2 tablets (666 mg) before bedtime. 180 tablet 5 cholecalciferol (Vitamin D-3) 25 MCG (1000 UT) capsule Take 1 capsule (25 mcg) by mouth Daily 90 capsule 3 Continuous Blood Gluc Acid Bleacher (fluid OperationsStyle Lilliam 2 Richardson) device 1 each in the morning and 1 each at noon and 1 each in the evening and 1 each before bedtime. 1 each 0 Continuous Blood Gluc Sensor (FreeStyle Lilliam 2 Sensor) misc 1 each every 14 (fourteen) days 6 each 3 denosumab (Prolia) 60 MG/ML solution prefilled syringe Inject 60 mg under the skin every 6 (six) months. diphenhydrAMINE (BENADryl) 25 MG capsule Take 25 mg by mouth as needed at bedtime for itching or allergies. dulaglutide (Trulicity) 0.75 MG/0.5ML solution pen-injector Inject 0.75 mg under the skin 1 (one) time per week Eliquis 2.5 MG tablet Take 2.5 mg by mouth in the morning and 2.5 mg before bedtime. estradiol (Estrace) 0.1 MG/GM vaginal cream APPLY A PEA SIZE AMOUNT TO URETHRA OR INNER VAGINA 3 TIMES A WEEK FOR 1 MONTH THEN 2 TIMES A WEEK FOR MAINTENANCE famotidine (Pepcid) 20 MG tablet Take 20 mg by mouth Daily Farxiga 10 MG TAKE 1 TABLET BY MOUTH IN THE MORNING 30 tablet 0 FLUoxetine (PROzac) 40 MG capsule Take 1 capsule (40 mg) by mouth in the morning. 100 capsule 3 Fluticasone-Salmeterol (Advair Diskus) 250-50 MCG/ACT aerosol powder Inhale 1 puff every 12 (twelve) hours 1 each 5 hyoscyamine (Levsin) 0.125 MG SL tablet Take 1 tablet (0.125 mg) by mouth every 6 (six) hours if needed for cramping 60 tablet 2 Lactobacillus pack Take 1 tablet by mouth every 8 (eight) hours. levETIRAcetam (Keppra) 250 MG tablet Take 1 tablet (250 mg) by mouth in the morning and 1 tablet (250 mg) before bedtime. 200 tablet 3 MAGnesium-Oxide 400 (240 Mg) MG tablet Take 1 tablet by mouth twice daily 180 tablet 3 metoprolol tartrate (Lopressor) 50 MG tablet Take 1 tablet by mouth twice daily 180 tablet 3 Multiple Vitamins-Minerals (EYE VITAMINS PO) Take 1 tablet by mouth 1 (one) time each day Myrbetriq 50 MG 24 hr tablet Take 50 mg by mouth Daily oxygen (O2) gas Inhale 3 L/min continuously. via nasal canula pantoprazole (ProtoNix) 40 MG EC tablet Take 40 mg by mouth in the morning and 40 mg in the evening. potassium chloride CR (K-Tab) 20 MEQ ER tablet Take 1 tablet (20 mEq) by mouth Daily 100 tablet 3 promethazine (Phenergan) 25 MG tablet TAKE 1 TABLET BY MOUTH EVERY 6 HOURS NEEDED FOR NAUSEA FOR VOMITING 120 tablet 0 SV Iron 325 (65 Fe) MG tablet tiZANidine (Zanaflex) 4 MG tablet Take 1 tablet (4 mg) by mouth every 8 (eight) hours if needed for muscle spasms 90 tablet 2 [DISCONTINUED] vancomycin (Vancocin) 250 MG capsule Take 1 capsule (250 mg) by mouth in the morning and 1 capsule (250 mg) at noon and 1 capsule (250 mg) in the evening and 1 capsule (250 mg) before bedtime. 56 capsule 0 [DISCONTINUED] Farxiga 10 MG TAKE 1 TABLET BY MOUTH IN THE MORNING 30 tablet 0 [DISCONTINUED] vancomycin (Vancocin) 250 MG capsule Take 250 mg by mouth in the morning and 250 mg at noon and 250 mg in the evening and 250 mg before bedtime. No current facility-administered medications on file prior to visit. I have reviewed and reconciled the history and medication list with the patient today. Allergies Allergen Reactions Bee Venom Other reaction(s): Swelling of body region Grapefruit Extract Unknown Lanolin Naproxen Unknown Other Other Reaction(s): Not available Pineapple Unknown Social History Tobacco Use Smoking status: Every Day Current packs/day: 1.00 Average packs/day: 1 pack/day for 50.0 years (50.0 ttl pk-yrs) Types: Cigarettes Smokeless tobacco: Never Substance Use Topics Alcohol use: Not Currently Alcohol/week: 2.0 standard drinks of alcohol Types: 2 Standard drinks or equivalent per week Comment: Caffeine intake: 1-2 cups per day, 2-3 cups a week Drug use: Never Family History Problem Relation Name Age of Onset Hypertension Mother Heart disease Mother Stroke Mother Hypertension Father Heart disease Father Past Medical History: Diagnosis Date Acute kidney injury superimposed on CKD ([facility]) 11/18/2023 Anxiety Arthritis Haddad's esophagus CHF (congestive heart failure) ([facility]) CHF exacerbation ([facility]) 11/18/2022 Admitted Chronic cough Colon polyp 05/2017 COPD (chronic obstructive pulmonary disease) ([facility]) COVID-19 Pneumonia, Acute on Chronic Resp. Failure, ELI (04/18/2021-04/22/2021) Depression ([facility]) Diabetes mellitus ([facility]) Gastritis GERD (gastroesophageal reflux disease) History of [...] 11/08/2023 ELI, Hypocalcemia, UTI, Low Mg Hyperlipidemia ([facility]) Hypertension ([facility]) New onset seizure ([facility]) 03/08/2022 Nonalcoholic fatty liver MARGARITA (obstructive sleep apnea) Ventral hernia Past Surgical History: Procedure Laterality Date BREAST SURGERY Right 2015 lumpectomy CHOLECYSTECTOMY 2015 COLONOSCOPY W/ POLYPECTOMY 02/02/2020 COLONOSCOPY W/ POLYPECTOMY 05/2017 CT ANGIO HEAD 05/14/2023 CT ANGIO HEAD 05/14/2023 ESOPHAGOGASTRODUODENOSCOPY 08/02/2018 with biopsy ESOPHAGOGASTRODUODENOSCOPY 12/21/2019 with biopsy HYSTERECTOMY 1995 UMBILICAL HERNIA REPAIR WOUND DEBRIDEMENT 2015 Visit Vitals BP 112/66 Pulse 76 Ht 5' 3 Wt 133 lb SpO2 95% BMI 23.56 kg/m Smoking Status Every Day BSA 1.64 m Review of Systems Constitutional: Positive for fatigue. Negative for chills, diaphoresis and fever. Respiratory: Negative for cough. Cardiovascular: Negative for chest pain. Musculoskeletal: Positive for arthralgias. Neurological: Positive for weakness. Objective Physical Exam Constitutional: General: She is not in acute distress. Appearance: She is obese. She is ill-appearing. She is not diaphoretic. HENT: Head: Atraumatic. Right Ear: Tympanic membrane normal. Left Ear: Tympanic membrane normal. Nose: Nose normal. Comments: Oxygen per [place] Mouth/Throat: Mouth: Mucous membranes are moist. Pharynx: Oropharynx is clear. Eyes: Pupils: Pupils are equal, round, and reactive to light. Cardiovascular: Rate and Rhythm: Normal rate and regular rhythm. Heart sounds: Murmur heard. Pulmonary: Breath sounds: Normal breath sounds. Abdominal: General: Bowel sounds are normal. Palpations: Abdomen is soft. Musculoskeletal: Cervical back: Neck supple. Right lower le+ Edema present. Left lower le+ Edema present. Skin: General: Skin is warm and dry. Neurological: General: No focal deficit present. Mental Status: She is alert and oriented to person, place, and time. Psychiatric: Mood and Affect: Mood normal. Behavior: Behavior normal. 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 Do all this for 14 days. Follow up in about 3 months (around 04/17/2024) for Routine F/U, sooner if diarrheaa persists. documented in this encounter [facility] 12-30-2023 History of Presen t illness Narrative Patient: [...] skin and fissures to feet and has intermittently been using prescribed or recommended iain-ovp-vutftpt cream with minimal improvement. Allergies: Allergies Allergen Reactions Bee Venom Other reaction(s): Swelling of body region Grapefruit Extract Unknown Lanolin Naproxen Unknown Other Other Reaction(s): Not available Pineapple Unknown Past Medical History: Past Medical History: Diagnosis Date Acute kidney injury superimposed on CKD ([facility]) 11/18/2023 Anxiety Arthritis Haddad's esophagus CHF (congestive heart failure) ([facility]) CHF exacerbation ([facility]) 11/18/2022 Admitted Chronic cough Colon polyp 05/2017 COPD (chronic obstructive pulmonary disease) ([facility]) COVID-19 Pneumonia, Acute on Chronic Resp. Failure, ELI (04/18/2021-04/22/2021) Depression ([facility]) Diabetes mellitus ([facility]) Gastritis GERD (gastroesophageal reflux disease) History of [...] 11/08/2023 ELI, Hypocalcemia, UTI, Low Mg Hyperlipidemia ([facility]) Hypertension ([facility]) New onset seizure ([facility]) 03/08/2022 Nonalcoholic fatty liver MARGARITA (obstructive sleep [...] NEEDED FOR ANXIETY, Disp: 90 tablet, Rfl: 2 AMINO ACIDS PO, Take 15 g by mouth every 8 (eight) hours., Disp: , Rfl: ammonium lactate (Lac-Hydrin) 12 % lotion, Apply 1 application topically 2 (two) times a day as needed for dry skin or irritation., Disp: , Rfl: atorvastatin (Lipitor) 20 MG tablet, Take 1 tablet (20 mg) by mouth Daily, Disp: 90 tablet, Rfl: 3 Brexpiprazole (Rexulti) 1 MG tablet, Take 1 tablet by mouth Daily, Disp: 100 tablet, Rfl: 3 bumetanide (Bumex) 2 MG tablet, Take 1 tablet (2 mg) by mouth Daily, Disp: , Rfl: calcitriol (Rocaltrol) 0.5 MCG capsule, Take 0.5 [...] 90 capsule, Rfl: 3 Continuous Blood Gluc Acid Bleacher (FreeStyle Lilliam 2 Richardson) device, 1 each in the morning and [...] pantoprazole (ProtoNix) 40 MG EC tablet, Take 40 mg by mouth in the morning and 40 mg in the evening., Disp: , Rfl: potassium chloride CR (K-Tab) 20 MEQ ER tablet, Take 1 tablet (20 mEq) by mouth Daily, Disp: 100 tablet, Rfl: 3 promethazine (Phenergan) 25 MG tablet, Take 1 tablet (25 mg) by mouth every 6 (six) hours if needed for nausea or vomiting., Disp: 120 tablet, Rfl: 5 SV Iron 325 (65 Fe) MG tablet, , Disp: , Rfl: tiZANidine (Zanaflex) 4 MG tablet, Take 1 tablet (4 mg) by mouth every 8 (eight) hours if needed for muscle spasms, Disp: 90 tablet, Rfl: 2 vancomycin (Vancocin) 250 MG capsule, Take 250 mg by mouth in the morning and 250 mg at noon and 250 mg in the evening and 250 mg before bedtime., Disp: , Rfl: Social History: Social History Socioeconomic History Marital [...] Social History Narrative Not on file Social Determinants of Health Financial Resource Strain: [...] 10 min Stress: Stress Concern Present (12/06/2023) [employer] - Occupational Stress Questionnaire Feeling of Stress : To some extent Social Connections: Socially Isolated (12/06/2023) Social Connection and Isolation Panel [NHANES] Frequency of Communication with Friends and Family: Once a week Frequency of Social Gatherings with Friends and Family: Three times a week Attends Taoist Services: Never Active Member of Clubs or [...] growth with thin shiny atrophic skin bilaterally. Notable fissures and dry skin to feet bilaterally VASC: positive DP and negative PT pedal pulses NEURO: 5.07 [place] Earnest monofilament test intact to digits and forefoot bilaterally 125Hz tuning fork diminished to 1st MPJ bilaterally ORTHO: Positive pain on palpation to nails 1 through 10 ASSESSMENT 1. Xerosis cutis 2. Diabetes mellitus due to underlying condition with diabetic polyneuropathy, unspecified whether senior care insulin use ([facility]) 3. Onychomycosis 4. Toe pain, bilateral PLAN Discussed proper foot care with patient today. Debride nails in length and thickness digits 1 through 10 Patient educated today on proper diabetic foot care including monitoring feet daily for any signs of infection openings in the skin or irregularities to both feet. Patient had a diabetic neurological exam today to both their feet and discussed proper shoe gear. Patient use creams daily in prescription today for Lac-Hydrin Colt Thomason DPM documented in this encounter [facility] 11-11-2023 Discharge summary Note Date/Time November 11, 2023 1:49pm [facility] EN[facility] [address] [place] [address] Discharge Summary Signed with Colby Patient: Kate Hagen MR#: [id number] : 1950 Acct:[id number] Age/Sex: 72 / F Adm Date: 4 Loc: Room: [address] [place] [address]: Barbi Hernandez MD Copies to: [...] accordingly. Addendum Documented By: Barbi Hernandez MD 11/11/23 6587 Addendum Signed By: <Electronically signed by Barbi [...] strongly advised to follow up with her sap data analyst as outpatient. As per nephrolog, who were [...] % (Auto) 80.3, Lymph % (Auto) 13.2, Harney % (Auto) 5.2, Eos % (Auto) 1.1, Baso % (Auto) 0.2, Nucleat RBC Rel Count 0.0, Neut # (Auto) 7.5, Lymph # (Auto) 1.2, Harney # (Auto) 0.5, Eos # (Auto) 0.1, [...] <Electronically signed by Barbi Hernandez MD> 11/11/23 1637 [facility] Work Phone: 1(776) 698-432807-11-2024 Progress note [facility] November 11, 2023 12:24pm Note Date/Time November 11, 2023 12:2 4pm [facility] EN[facility] [address] [place] [address] Nephrology Progress Note Signed Patient: Kate Hagen MR#: [id number] : 1950 Acct:[id number] Age/Sex: 72 / F Adm Date: 4 Loc: Room: [address] [place] [address] Type: ADM IN Attending Dr: Barbi Hernandez MD Copies to: ~ Date of Service: 11/11/2023 Subjective Subjective Narrative: Patient is a 72-year-old female with medical history significant for CKD, COPD, A-fib, CHF, DM, HTN, pulmonary hypertension. She reports taking all medicationsas prescribed. She presented to the ED 11/07 for abnormal outpatient labs. Her what job titles mean stated that her calcium is dangerously low [...] 11/11/23 11:32 11/11/23 11:32 11/11/23 11:32 Narrative: Constitutional: Up in chair, feels [...] 2.5 Mg Tablet) 2.5 mg PO BID [facility] Stop: 11/07/24 21:29 Last Admin: 11/11/23 08:56 [...] 20 Mg Capsule) 40 mg PO DAILY [facility] Stop: 11/08/24 08:59 Last Admin: 11/11/23 08:59 Dose: 40 mg Levetiracetam (Levetiracetam 250 Mg Tablet) 250 mg PO BID [facility] Stop: 11/07/24 21:34 Last Admin: 11/11/23 08:56 Dose: 250 mg Magnesium Oxide (Magnesium Oxide 400 Mg Tablet) 400 mg PO BID [facility] Stop: 11/08/24 08:59 Last Admin: 11/11/23 08:56 Dose: 400 mg Metoprolol Tartrate (Metoprolol Tartrate 50 Mg Tablet) 50 mg PO BID [facility] Stop: 11/07/24 21:34 Last Admin: 11/11/23 08:56 Dose: 50 mg Ondansetron HCl (Ondansetron 4 Mg/2 Ml Vial) 4 mg IV-PUSH Q8H PRN PRN Reason: Nausea And Vomiting Stop: 11/09/24 12:35 Last Admin: 11/10/23 14:28 Dose: 4 mg Potassium Chloride (Potassium Chloride Er 20 Meq Tab.Er.Prt) 20 meq PO DAILY [facility] Stop: 11/08/24 08:59 Last Admin: 11/11/23 08:56 Dose: 20 meq Sodium Chloride (Sodium Chloride 0.9 % 10 Ml Syringe) 0 ml IV-PUSH PRN PRN PRN Reason: Flush Stop: 11/07/24 11:51 Last Admin: 11/10/23 14:28 Dose: 10 ml Vancomycin HCl (Vancomycin 250 Mg Capsule) 250 mg PO QID [facility] Stop: 11/14/23 17:59 Last Admin: 11/11/23 08:56 [...] <Electronically signed by MD Shalonda Pearson> 11/11/23 1226 [facility] Work Phone: 1([phone]) 289-613207-10-2024 Progress note Author Nickie Clay [facility] November 10, 2023 3:14pm Note Date/Time November 10, 2023 3:14 pm [facility] [address] [place] [address] Hospitalist Progress Note Signed Patient: Kate Hagen MR#: [id number] : 1950 Acct:[id number] Age/Sex: 72 / F Adm Date: 4 Loc: Room: [address] [place] [address] Type: ADM IN Attending Dr: Nickie Clay [...] <Electronically signed by Nickie Clay MD> 11/10/23 3559 [facility] Work Phone: 1([phone]) 333-760707-10-2024 Progress note Author Shalonda Pearson [facility] November 10, 2023 1:00pm Note Date/Time November 10, 2023 1:00 pm [facility] EN[facility] [address] [place] [address] Nephrology Progress Note Signed Patient: Kate Hagen MR#: [id number] : 1950 Acct:[id number] Age/Sex: 72 / F Adm Date: 4 Loc: Room: [address] [place] [address] Type: ADM IN Attending Dr: Nickie Clay MD Copies to: ~ Date of Service: 11/10/2023 Subjective Subjective Narrative: Patient is a 72-year-old female with medical history significant for CKD, COPD, A-fib, CHF, DM, HTN, pulmonary hypertension. She reports taking all medicationsas prescribed. She presented to the ED 11/07 for abnormal outpatient labs. Her what job titles mean stated that her calcium is dangerously low [...] 18 140/63 99 Nasal Cannula 3 11/10/23 12:11/10/23 12:11/10/23 12:11/10/23 12:11/10/23 12:11/10/23 12:11/10/23 12:25 Narrative: Constitutional: Laying in bed in [...] BID [facility] Stop: 11/07/24 21:29 Last Admin: 11/10/23 09:09 Dose: 2.5 mg Atorvastatin Calcium (Atorvastatin 20 Mg Tablet) 20 mg PO QHS [facility] Stop: 11/08/24 21:59 Last Admin: 11/09/23 22:12 Dose: 20 mg Brexpiprazole (Brexpiprazole 1 Mg Tablet) 1 mg PO QHS [facility] Stop: 11/07/24 21:59 Last Admin: 11/09/23 22:13 Dose: 1 mg Calcitriol (Calcitriol 0.5 Mcg Capsule) 0.5 mcg PO DAILY [facility] Stop: 11/08/24 14:39 Last Admin: 11/10/23 09:09 Dose: 0.5 mcg Calcium Acetate (Calcium Acetate 667 Mg Capsule) 1,334 mg PO TID.WITH.MEALS [facility] Stop: 11/08/24 16:59 Last Admin: 11/10/23 12:27 Dose: 1,334 mg Calcium Carbonate (Calcium Carbonate 500 Mg Tablet) 500 mg PO TID [facility] Stop: 11/08/24 21:59 Last Admin: 11/10/23 09:09 Dose: 500 mg Fluoxetine HCl (Fluoxetine 20 Mg Capsule) 40 mg PO DAILY [facility] Stop: 11/08/24 08:59 Last Admin: 11/10/23 09:09 Dose: 40 mg Levetiracetam (Levetiracetam 250 Mg Tablet) 250 mg PO BID [facility] Stop: 11/07/24 21:34 Last Admin: 11/10/23 09:09 Dose: 250 mg Magnesium Oxide (Magnesium Oxide 400 Mg Tablet) 400 mg PO BID [facility] Stop: 11/08/24 08:59 Last Admin: 11/10/23 09:09 Dose: 400 mg Metoprolol Tartrate (Metoprolol Tartrate 50 Mg Tablet) 50 mg PO BID [facility] Stop: 11/07/24 21:34 Last Admin: 11/10/23 09:09 Dose: 50 mg Ondansetron HCl (Ondansetron 4 Mg/2 Ml Vial) 4 mg IV-PUSH Q8H PRN PRN Reason: Nausea And Vomiting Stop: 11/09/24 12:35 Pantoprazole Sodium (Pantoprazole 40 Mg Tablet.Dr) 40 mg PO BID [facility] Stop: 11/07/24 21:34 Last Admin: 11/10/23 09:09 Dose: 40 mg Potassium Chloride (Potassium Chloride Er 20 Meq Tab.Er.Prt) 20 meq PO DAILY [facility] Stop: 11/08/24 08:59 Last Admin: 11/10/23 09:09 [...] Clay Documented By: Shalonda Pearson MD 11/10/23 1250 Signed By: <Electronically signed by MD Shalonda Pearson> 11/10/23 1300 [facility] Work Phone: 1([phone]) [phone] Progress note Author Gina Poole [facility] November 09, 2023 6:02pm Note Date/Time November 09, 2023 6:02p [facility] ENTER [address] [place] [address] Hospitalist Progress Note Signed Patient: Kate Hagen MR#: [id number] : 1950 Acct:[id number] Age/Sex: 72 / F Adm Date: 4 Loc: Room: [address] [place] [address] Type: ADM IN Attending Dr: Gina Poole [...] 11/08/23 21:35 11/09/23 09:08 Pantoprazole 40 Mg Tablet.Dr PO 11/07/24 21:34 40 mg BID [facility] [...] <Electronically signed by Gina Poole DO> 11/09/[address] [place] [address] Ctr Work Phone: [phone]) 384-562507-09-2024 Consult note Author Shalonda Pearson [facility] November 09, 2023 4:40pm Note Date/Time November 09, 2023 4:28p m [facility] EN[facility] [address] [place] [address] Nephrology Consult Note Signed Patient: Kate Hagen MR#: [id number] : 1950 Acct:[id number] Age/Sex: 72 / F Adm Date: 4 Loc: Room: [address] [place] [address] Type: ADM IN Attending Dr: Gina Poole DO Copies to: MD Shalonda Arambula II, MD Michael R. Frings, DO~ Providers Consult Date: 11/09/23 Requesting Provider: Gina Poole DO Primary Care Provider: Barry Barber II, MD HPI Reason for Consult: Hypocalcemia, ELI on CKD IV History of Present Illness: Patient is a 72-year-old female with medical history significant for CKD, COPD, A-fib, CHF, DM, HTN, pulmonary hypertension. She reports taking all medicationsas prescribed. She presented to the ED 11/07 for abnormal outpatient labs. Her what job titles mean stated that her calcium is dangerously low [...] negative unless noted below or in HPI [facility] Medical History Arthritis Problem List clean-up [...] mg PO QHS [facility] Stop: 11/08/24 21:59 Brexpiprazole (Brexpiprazole 1 Mg [...] Nacl) 1,000 mls @ 75 mls/hr IV .[id number] [facility] Stop: 11/07/24 16:29 Last Admin: 11/09/23 12:21 Dose: 75 mls/hr Levetiracetam (Levetiracetam 250 Mg Tablet) 250 mg PO BID [facility] Stop: 11/07/24 21:34 Last Admin: 11/09/23 09:08 Dose: 250 mg Magnesium Oxide (Magnesium Oxide 400 Mg Tablet) 400 mg PO BID [facility] Stop: 11/08/24 08:59 Last Admin: 11/09/23 09:09 Dose: 400 mg Metoprolol Tartrate (Metoprolol Tartrate 50 Mg Tablet) 50 mg PO BID [facility] Stop: 11/07/24 21:34 Last Admin: 11/09/23 09:08 Dose: 50 mg Pantoprazole Sodium (Pantoprazole 40 Mg Tablet.) 40 mg PO BID [facility] Stop: 11/07/24 21:34 Last Admin: 11/09/23 09:08 Dose: 40 mg Potassium Chloride (Potassium Chloride Er 20 Meq Tab.Er.Prt) 20 meq PO DAILY [facility] Stop: 11/08/24 08:59 Last Admin: 11/09/23 09:08 [...] Appearance Clear Urine pH 5.0 Ur Specific Minerva 1.008 Urine Protein Trace H Urine Glucose [...] this. Documented By: Shalonda Pearson MD 11/09/23 1405 Signed By: <Electronically signed by MD Shalonda Pearson> 11/09/23 1640 [facility] Work Phone: [phone] 127-241407-08-2024 History and physical note Author Michelle Lock [facility] November 08, 2023 6:58pm Note Date/Time November 08, 2023 6:51p [facility] ENTER [address] [place], [place] [id number] Hospitalist H&P Signed with Addaddy Patient: Kate Hagen MR#: [id number] : 1950 Acct:[id number] Age/Sex: 72 / F Adm Date: 4 Loc: Room: [address] [place] [address] Type: ADM IN Attending Dr: Michelle Lock MD Copies to: Michelle Barber II, MD~ ADDENDUM1 Continue IV fluids, will monitor for fluid overload given history of pulmonary hypertension. Follow-up labs in the morning. Addendum Documented By: Michelle Lock 11/08/231857 Addendum Signed By: <Electronically signed by Michelle Lock> 11/08/23 1858 HPI DATE OF EXAMINATION: 11/08/23 CHIEF COMPLAINT: [...] negative unless noted below or in HPI [facility] Medical History Arthritis Problem List clean-up [...] dulaglutide 0.75 mg/0.5 mL subcutaneous pen injector (TrulicOcutec) 0.75 mg subcut QWEEK 11/18/22 [History Confirmed [...] % (Auto) 9.5 % (.) 11/08/23 12:12 Harney % (Auto) 4.7 % (.) 11/08/23 12:12 Eos % (Auto) 1.3 % (.) 11/08/23 12:12 Baso % (Auto) 0.3 % (.) 11/08/23 12:12 Nucleat RBC Rel Count 0.0 /100 WBC (0-0.5) 11/08/23 12:12 Neut # (Auto) 12.2 x10E3/uL (1.8-7.7) H 11/08/23 12:12 Lymph # (Auto) 1.4 x10E3/uL (1.00-4.8) 11/08/23 12:12 Harney # (Auto) 0.7 x10E3/uL (0.0-0.8) 11/08/23 12:12 [...] pH 5.0 (5.0-9.0) 11/08/23 14:51 Ur Specific Minerva 1.008 (1.001-1.030) 11/08/23 14:51 Urine Protein Trace [...] By: <Electronically signed by Michelle Lock> 11/08/231856 [facility] Work Phone: 1([phone]) 351-937607-08-2024 History of Present illness Narrative* Jose Arriaga MD - 11/08/2023 10:00 AM EDT Subjective Kate Hagen is a 72 y.o. female Chief Complaint Follow-up HPI Patient is seen as an add-on at her request because of concerns regarding aortic valve disease. Apparently she had an echocardiogram performed at an outside hospital recently and is now being called by [facility] for TAVR. I reviewed the patient's chart. 6 months ago her transvalvular velocity was 2.7 m/s which does not suggest the need for aortic valve replacement. We ultimately received the recent echocardiogram performed last month and it demonstrates a velocity of 3.2 m/s. Also not severe enough to recommend valve intervention. Patient has no symptoms suggestive of aortic stenosis such as dyspnea orthopnea or PND. No angina no syncope. Blood pressure and lipids appear to be adequately controlled. Daughter offers, though, that the patient is profoundly hypocalcemic and in fact she is. I advised him that nobody would work on her aortic valve with her calcium this low and I strongly encouraged him to seek nephrology management (and/or endocrinology). They state they are actually going to go to the emergency department at [facility] in hopes of being admitted to achieve prompt nephrology intervention. I endorsed that strategy. In closing I made it clear that TAVR is not imminently indicated. Because of this I recommend optimizing other medical problems in the meantime. Detailed questioning reveals she has had no episodes of breakthrough arrhythmia. She is adequately protected because she is anticoagulated. In light of all the above we suggest continue therapy as is and hopefully nephrology can identify the cause of herhypocalcemia and rectify the matter in a timely fashion. Vitals: 11/08/23 1016 BP: 94/66 BP Location: Left arm Patient Position: Sitting Pulse: 76 Weight: 65.3 kg (144 lb) Height: 1.524 m (5') Objective Physical Exam Allergies Patient has no known allergies. Current Medications Current Outpatient Medications: albuterol 2.5 mg /3 mL (0.083 %) nebulizer solution, Take 3 mL (2.5 mg) by nebulization., Disp: , Rfl: ALPRAZolam XR (Xanax XR) 1 mg 24 hr tablet, Take 1 tablet (1 mg) by mouth once daily as needed. Do not crush, chew, or split., Disp: , Rfl: apixaban (Eliquis) 2.5 mg tablet, Take 1 tablet (2.5 mg) by mouth 2 times a day., Disp: 60 tablet, Rfl: 11 atorvastatin (Lipitor) 20 mg tablet, Take 1 tablet (20 mg) by mouth once daily., Disp: , Rfl: brexpiprazole (Rexulti) 1 mg tablet, Take 1 tablet (1 mg) by mouth once daily., Disp: , Rfl: bumetanide (Bumex) 2 mg tablet, Take 1 tablet (2 mg) by mouth 2 times daily (morning and late afternoon)., Disp: , Rfl: calcium carbonate (Tums) 200 mg calcium chewable tablet, Chew 1 tablet (500 mg) once daily., Disp: , Rfl: calcium carbonate-vit D3-min 600 mg calcium- 400 unit tablet, Take 1 tablet by mouth twice a day., Disp: , Rfl: cyclobenzaprine (Flexeril) 10 mg tablet, Take 1 tablet (10 mg) by mouth 3 times a day as needed formuscle spasms., Disp: , Rfl: dapagliflozin propanediol (Farxiga) 10 mg, Take 1 tablet (10 mg) by mouth., Disp: , Rfl: dulaglutide (Trulicity) 0.75 mg/0.5 mL pen injector, Inject 0.75 mg under the skin 1 (one) time perweek., Disp: , Rfl: estradiol (Estrace) 0.01 % (0.1 mg/gram) vaginal cream, 2 times a week., Disp: , Rfl: ferrous sulfate, 325 mg ferrous sulfate, tablet, 1 tablet once daily., Disp: , Rfl: FLUoxetine (PROzac) 40 mg capsule, Take 1 capsule (40 mg) by mouth once daily., Disp: , Rfl: fluticasone propion-salmeteroL (Advair Diskus) 250-50 mcg/dose diskus inhaler, Inhale 1 puff 2 times a day. Rinse mouth with water after use to reduce aftertaste and incidence of candidiasis. Do not swallow., Disp: , Rfl: HYDROcodone-acetaminophen (Saranac) 5-325 mg tablet, Take 1 tablet by mouth., Disp: , Rfl: levETIRAcetam (Keppra) 500 mg tablet, Take 1 tablet (500 mg) by mouth 2 times a day., Disp: , Rfl: magnesium oxide (Mag-Ox) 400 mg tablet, 1 tablet (400 mg) 2 times a day., Disp: , Rfl: metOLazone (Zaroxolyn) 2.5 mg tablet, Take 1 tablet (2.5 mg) by mouth once daily., Disp: , Rfl: metoprolol tartrate (Lopressor) 50 mg tablet, Take 1 tablet by mouth 2 times a day., Disp: , Rfl: omeprazole (PriLOSEC) [address] capsule, Take 1 capsule (40 mg) by mouth 2 times a day., Disp: , Rfl: ondansetron (Zofran) 4 mg tablet, Take 1 tablet (4 mg) by mouth every 8 hours if needed for nausea or vomiting., Disp: , Rfl: oxygen (O2) gas therapy, Inhale 1 each continuously., Disp: , Rfl: pantoprazole (ProtoNix) 40 mg EC tablet, Take 1 tablet (40 mg) by mouth 2 times a day. Do not crush, chew, or split., Disp: , Rfl: potassium chloride CR 20 mEq ER tablet, Take 1 tablet (20 mEq) by mouth once daily., Disp: , Rfl: promethazine (Phenergan) 25 mg tablet, Take 1 tablet (25 mg) by mouth every 6 hours if needed for nausea or vomiting., Disp: , Rfl: tiZANidine (Zanaflex) 4 mg capsule, Take 1 capsule (4 mg) by mouth 3 times a day as needed., Disp: , Rfl: vitamins A,C,I-jskb-phxteg 2,148 mcg-113 mg-45 mg-17.4mg tablet, Take 1 capsule by mouth once daily., Disp: , Rfl: Assessment/Plan 1. Nonrheumatic aortic valve stenosis Moderate in severity. TAVR not necessary at this time. 2. Paroxysmal atrial fibrillation (Multi) Asymptomatic. Protected with anticoagulant therapy 3. Abnormal echocardiogram Transvalvular velocity now 3.2 m/s. This suggests moderate aortic stenosis 4. Pulmonary hypertension (Multi) Asymptomatic at the time being. 5. Mixed hyperlipidemia Review of treatment demonstrates good control 6. Essential hypertension Review of treatment demonstrates good control 7. Anticoagulated Well-tolerated. Mitigate stroke risk. 8. Stage 3b chronic kidney disease (Multi) Noted. Because of this Eliquis dosage is reduced 9. Current smoker The merits of cessation were advocated Scribe Attestation By signing my name below, I, Ravin Forrest LPNibata attest that this documentation has been prepared under the direction and in the presence of Jin Arriaga MD. Provider Attestation - Scribe documentation All medical record entries made by the Scribe were at my direction and personally dictated by me. Ihave reviewed the chart and agree that the record accurately reflects my personal performance of the history, physical exam, discussion and plan. [facility] Work Phone: 1(273) 448-194007-08-2024 Instructions* Patient Instructions* Cindy Reed LPN - 11/08/2023 10:00 AM EDT Please bring all medicines, vitamins, and herbal supplements with you when you come to the office. Prescriptions will not be filled unless you are compliant with your follow up appointments or have a follow up appointment scheduled as per instruction of your physician. Refills should be requested at the time of your visit. BMI was above normal measurement. Current weight: 65.3 kg (144 lb) Weight change since last visit (-) denotes wt loss 12 lbs Weight loss needed to achieve BMI 25: 16.3 Lbs Weight loss needed to achieve BMI 30: -9.3 Lbs Provided instructions on dietary changes Provided instructions on exercise . [facility] Work Phone: 1([phone]) 614-960305-10-2024 NotePROCEDURE: Without IV contrast, axial helical 5 [...] BY: ELECTRONICALLY SIGNED BY: Perez Gamble MDNot [id number] Instructions* Patient Instructions* Colt Live DO - 09/08/2023 1:25 PM EDT You are doing excellent. Return to see me at 1 year from surgery documented in this [id number] History of Present illness Narrative* Colt Live [...] her questions were answered. documented in this [id number] History of Present illness Narrative* Meng Leos [...] pain. No operative intervention required given appropriate jain of function. Follow up with dentistry for denture adjustment. Meng Leos DMD, MD * Emma Zamudio DDS - 08/18/2023 10:24 PM [...] is properly healing. Assessment / Diagnosis: Edentulous [395231] Normal post operative course Normal postoperative course. Healing as expected. Dr. Meng Loes clinically assessed and spoke with the patient. [...] note were not included. documented in this [id number] History of Present illness Narrative* Emma Zamudio [...] is properly healing. Assessment / Diagnosis: Edentulous [185700] Normal post operative course Normal postoperative course. [...] note were not included. documented in this [id number] Evaluation + Plan note* Assessment & Plan Note - NATALIE Gonsalez - 07/27/2023 1:29 PM EDT Associated Problem(s): Stage 3 chronic kidney disease (CMS/HCC) They have not followed up recently with Dr. Dean At one point her creatinine right about 4.2, May 2023 creatinine 2.06 [facility] Work Phone: [phone]) 701-742403-26-2024 Evaluation + Plan note* Assessment & Plan Note - NATALIE Gonsalez - 07/27/2023 1:29 PM EDTAssociated Problem(s): BMI 25.0-25.9,adult Her weight is down approximately 30 pounds. She relates this to recent mandibular fracture and difficulty with dentures. [facility] Work Phone: [phone]) [phone] Miscellaneous Notes* Assessment & Plan Note - [...] 1:27 PM EDT Associated Problem(s): Pulmonary hypertension ([facility]) October 2022 TTE RVSP 84 mmHg She [...] 07/27/2023 1:25 PM EDT Associated Problem(s): A-fib ([facility]) PAF May 2023 discharge summary documents [...] to decline pharmacological assistance. documented [facility] Work Phone: 1(201) 370-894603-26-2024 Evaluation + Plan note* Assessment & Plan Note - NATALIE Gonsalez - 07/27/2023 1:28 PM EDTAssociated Problem(s): Anticoagulated CHADS VASc 4 Currently on full dose Eliquis. Recent 30 pound weight loss puts her weight at 60 kg, discharge creatinine 2.0 Will reduce to Eliquis 2.5 mg twice daily She denies bleeding diatheses Had 1 accidental fall, denies recurrent episode. Briefly introduced Watchman device [facility] Work Phone: [phone]) [phone] Evaluation + Plan note* Assessment & Plan Note - NATALIE Gonsalez - 07/27/2023 1:27 PM EDTAssociated Problem(s): Essential hypertension Optimal in office [facility] Work Phone: [phone]) [phone] Evaluation + Plan note* Assessment & Plan Note - NATALIE Gonsalez - 07/27/2023 1:27 PM EDTAssociated Problem(s): Hyperlipidemia Moderate intensity statin [facility] Work Phone: [phone]) 243-940503-26-2024 Evaluation + Plan note* Assessment & Plan Note - NATALIE Gonsalez - 07/27/2023 1:27 PM EDTAssociated Problem(s): Pulmonary hypertension (CMS/HCC) October 2022 TTE RVSP 84 mmHg She denies any prior PE, has longstanding tobacco abuse, chronic hypoxia and COPD May 2023 TTE RVSP 60 mmHg RV function size reported to be normal [facility] Work Phone: 1(750) 376-440303-26-2024 Evaluation + Plan note* Assessment & Plan Note - NATALIE Gonsalez - 07/27/2023 1:26 PM EDTAssociated Problem(s): Abnormal echocardiogram May 2023 TTE LVEF 75% Aortic valve area 1.2 cm RVSP 60 mmHg [facility] Work Phone: 1([phone]) 394-819803-26-2024 Evaluation + Plan note* Assessment & Plan Note - NATALIE Gonsalez - 07/27/2023 1:25 PM EDTAssociated Problem(s): A-fib ([facility]) PAF May 2023 discharge summary documents inpatient afib with RVR - spontaneous conversion RRR in office today No prior antiarrhythmic No MR [facility] Work Phone: [phone]) [phone] Evaluation + Plan note* Assessment & Plan Note - NATALIE Gonsalez - 07/27/2023 1:24 PM EDTAssociated Problem(s): Aortic stenosis October 2022 TTE Aortic Stenosis p46;m26 May 2023 TTE Aortic stenosis p28:m15 JUDITH 1.2 centimeter squared [facility] Work Phone: [phone]) [phone] Evaluation + Plan note* Assessment & Plan Note - NATALIE Gonsalez - 07/26/2023 2:53 PM EDTAssociated Problem(s): Current smoker 'can take it or leave it' Did ok while in SNF Currently 5 per day Continued every day tobacco use. Have reviewed the negative cardiovascular impact of nicotine. Continues to decline pharmacological assistance. [facility] Work Phone: [phone] History of Present illness Narrative* NATALIE Gonsalez - 07/26/2023 2:30 PM EDT Chief Complaint I am getting along Reason for Visit Patient presents to the office today for outpatient follow-up for hospital follow-up. Last evaluated in clinic by myself March 2023. In December 2022 patient transferred care to [facility]. I still have not been able to obtain prior cardiology records. They deny any prior MD or cardiac catheterization, report prior stress testing. [...] somewhat difficult historians. She reestablished care with [facility] during summer 2022. Have not been able to get [facility] records. They deny any prior cardiac cath or MD but do report prior stress testing. I [...] and incidence of candidiasis.Do not swallow. HYDROcodone-acetaminophen (Saranac) 5-325 mg tablet 1 tablet, oral levETIRAcetam [...] contact the office if new symptoms arise. SOLE CUTTER 6 months Annika Kaba MSN, HUMAN RESOURCE CONSULTANT-NEGATIVE NOTCHER, PMHNP-[facility] Please excuse any errors in grammar or translation related to this dictation. Voice recognition software was utilized to prepare this document. documented in this [facility] Work Phone: 1(292) 354-202203-25-2024 Instructions* Patient Instructions* NATALIE Gonsalez - 07/26/2023 [...] contact the office if new symptoms arise. SOLE CUTTER 6 months You need to stop smoking. Though it is not easy, more than half of all adults smokers have quit. Weencourage you to write down all the reasons you should quit smoking and set a quit date for yourself. Ask us how we can help. You may also call 1-163-WSZA-NOW for free resources and assistance. [facility] Work Phone: 1(398) 250-866803-06-2024 Instructions* Patient Instructions* Colt Live DO - 07/07/2023 1:34 PM EST Your fracture remains well aligned. I expect that your knee pain is from a combination of pain from your hip joint as well as some muscular imbalance from your injury. Continue to work with physical therapy on this. Return to see me in 2 months. documented in this encounterTHE [facility] Work Phone: 1(233) 966-899403-06-2024 History of Present illness Narrative* Colt Live [...] in 2 months. documented in this encounterTHE [facility] Work Phone: 1(568) 594-330102-13-2024 Telephone encounter Note* Telephone Encounter - Elmo Allen RN - 06/15/2023 3:51 PM EST What is the need: Medicare TOC SNF Review Situation: Patient approaching the 30 day readmission period Background: Attending Meng Whitaker MD Date of Admission 05/13/2023 Date of Discharge 05/18/2023 [facility] SURGERY FINAL DIAGNOSES: Hospital Problems as of 05/18/2023 * (Principal) H/O traumatic fracture Assessment: Reviewed careport patient remains in SNF 05/18/2023 7:35 PM EST [facility]) Recommendation: continue [facility] SN[facility] Review Program closed at this time [facility] Work Phone: 1(148) 111-376902-13-2024 Miscellaneous Notes* Telephone Encounter - Elmo Allen RN - 06/15/2023 3:51 PM EST What is the need: Medicare TOC SNF Review Situation: Patient approaching the 30 day readmission period Background: Attending Meng Whitaker MD Date of Admission 05/13/2023 Date of Discharge 05/18/2023 [facility] TRA[facility]MA SURGERY FINAL DIAGNOSES: Hospital Problems as of 05/18/2023 * (Principal) H/O traumatic fracture Assessment: Reviewed careport patient remains in SNF 05/18/2023 7:35 PM EST [facility] ([facility]) Recommendation: continue [facility] SN[facility] Review Program closed at this time documented in this [id number] Instructions* Patient Instructions* Colt Live DO - [...] Dr. James Noriega who sees patients at [facility] documented in this [id number] History of Present illness Narrative* Colt Live DO - 06/09/2023 8:47 AM EST Doing well overall. Has had difficulties ambulating for months prior to fall. Has not been worked up much. Bilateral foot drop which was new in the past few months but present prior to surgery. Recommended she see neurology or spine surgeon near her [place]. They are closer to [facility] and 1.5 hrsfrom here. They would prefer to see someone at [facility]. On eliquis. Incisions well healed. Ambulating [...] Dr. James Noriega who sees patients at [facility] documented in this [id number] Telephone encounter Note* Telephone Encounter - Elmo Allen RN - 06/01/2023 11:55 AM EST What is the need: Medicare PHU SNF Review Situation: Patient within the 30 day readmission period Background: Attending Meng Whitaker MD Date of Admission 05/13/2023 Date of Discharge 05/18/2023 [facility] TRA[facility] SURGERY FINAL DIAGNOSES: Hospital Problems as of 05/18/2023 * (Principal) H/O traumatic fracture Assessment: Reviewed careport patient remains in SNF 05/18/2023 7:35 PM EST [facility] ([facility]) Recommendation: continue [facility] SN[facility] Review Process [facility] Work Phone: 1(663) 640-896701-30-2024 Miscellaneous Notes* Telephone Encounter - Elmo Allen RN - 06/01/2023 11:55 AM EST What is the need: Medicare TOC SNF Review Situation: Patient within the 30 day readmission period Background: Attending Meng Whitaker MD Date of Admission 05/13/2023 Date of Discharge 05/18/2023 [facility] TRA[facility]MA SURGERY FINAL DIAGNOSES: Hospital Problems as of 05/18/2023 * (Principal) H/O traumatic fracture Assessment: Reviewed careport patient remains in SNF 05/18/2023 7:35 PM EST [facility] ([facility]) Recommendation: continue [facility] SN[facility] Review Process documented in this [id number] Telephone encounter Note* Telephone Encounter - Elmo Allen RN - 05/25/2023 3:50 PM EST What is the need: Medicare TOC SNF Review Situation: Patient within the 30 day readmission period Background: Attending Meng Whitaker MD Date of Admission 05/13/2023 Date of Discharge 05/18/2023 [facility] TRAUMA SURGERY FINAL DIAGNOSES: Hospital Problems as of 05/18/2023 * (Principal) H/O traumatic fracture Assessment: Reviewed careport patient remains in SNF 05/18/2023 7:35 PM EST [facility] ([facility]) Recommendation: continue [facility] SN[facility] Review Process Elmo Allen RN [facility] Work Phone: 1(817) 348-363601-23-2024 Miscellaneous Notes* Telephone Encounter - Elmo Allen RN - 05/25/2023 3:50 PM EST What is the need: Medicare TOC SNF Review Situation: Patient within the 30 day readmission period Background: Attending Meng Whitaker MD Date of Admission 05/13/2023 Date of Discharge 05/18/2023 [facility] TRAUMA SURGERY FINAL DIAGNOSES: Hospital Problems as of 05/18/2023 * (Principal) H/O traumatic fracture Assessment: Reviewed careport patient remains in SNF 05/18/2023 7:35 PM EST [facility] ([facility]) Recommendation: continue [facility] SNF Review Process Elmo Allen RN documented in this [id number] Miscellaneous Notes* Telephone Encounter - Elmo Allen RN - 05/19/2023 1:51 PM EST Patient discharged to a SNF [facility] of SN[facility] Phone number: [phone] Patient enrolled in [facility] to begin discharge review documented in this [id number] Telephone encounter Note* Telephone Encounter - Elmo Allen RN - 05/19/2023 1:51 PM EST Patient discharged to a SNF Name of SN[facility] Phone number: [phone] Patient enrolled in [facility] to begin discharge review [facility] Work Phone: 1(475) 713-427101-16-2024 NoteDISCHARGE SUMMARY [address] [address] Kate Hagen Date of : 1950 72 year oldfemale Attending Meng Whitaker MD Date of Admission 05/13/2023 Date of Discharge 05/18/2023 [facility] SURGERY FINAL DIAGNOSES: Hospital Problems as of 05/18/2023 * (Principal) H/O traumatic fracture C. difficile colitis Diabetes mellitus type II, non insulin dependent (HCC) Congestive heart failure (HCC) Hypertension Closed displaced intertrochanteric fracture of right femur (HCC) Fall Fracture of left side of mandible ([facility]) TMJ (dislocation of temporomandibular joint), initial [...] of right femur, initial encounter ([facility]) senna (SENOKOT) 8.6 MG tablet Take 1 Tablet by mouth daily as needed for Constipation. Qty: 30 Tablet, Refills: 0 naloxone 4 mg/0.1 mL nasal liquid Use 1 [place] in one nostril (alternate sides) as needed [...] tablet, 2.5 mg, Oral, Daily, Johnson Chau APRN-NEGATIVE NOTCHER, 2.5 mg at 05/18/23 1008 bumetanide (BUMEX) tablet, 2 mg, Oral, 2x Daily Diuretic, Johnson Chau, HUMAN RESOURCE CONSULTANT-NEGATIVE NOTCHER, 2 mg at 05/18/23 1145 bumetanide (BUMEX) tablet, 1 mg, Oral, At Bedtime, Kandi Johnson, HUMAN RESOURCE CONSULTANT-NEGATIVE NOTCHER, 1 mg at 05/17/23 2201 ALPRAZolam (XANAX) tablet, 0.5 mg, Oral, Daily PRN, Johnson Chau, HUMAN RESOURCE CONSULTANT-NEGATIVE NOTCHER guaifenesin (MUCINEX) 600 MG 12 hour tablet, 600 mg, Oral, 2x Daily PRN, Johnson Chau, HUMAN RESOURCE CONSULTANT-NEGATIVE NOTCHER, 600 mg at 05/17/232200 ondansetron (ZOFRAN) 4 MG/2ML injection, 4 mg, Intravenous Push, Q4H PRN, Becca Valles MD, 4 mg at 05/15/23 0237 albuterol (PROVENTIL HFA (more content not included)...The [facility] 05-18-2023 NoteDischarge plan remains SNF. [facility]. Pt does not require precert prior to transfer, awaiting medical clearance. KONRAD Kevin, LSWTRiverview Health Institute [id number] NoteOrthopaedics Progress Note Kate Hagen [id number] S: No acute events overnight. Tachycardia overnight. [...] Orthopaedic Surgery, PGY-4 Ortho Team A Pager [phone] ([employer] Chat works best - please include all of Team A in servtag messages) After 5 pm and on weekends, please page business systems consultant resident ([phone]) with questions or concerns.The [facility] [id number] NoteSPEECH LANGUAGE PATHOLOGY SWALLOW EVALUATION: AC5-509/1 Referral [...] arteries, PICA/AICA branches, basilar artery, SCAs and energy systems laboratory director are patent. No vessel cutoff, aneurysm or [...] Liquids -Oral mucosa is pink and moist [place] Swallow Protocol: State: alert; maintained across session [...] either during or immediate after completion) *The [place] Swallow Protocol (YSP) is a standardized measure [...] aspiration related pu (more content not included)...The [facility] [id number] NoteGERIATRIC CONSULTATION Patient Name: Kate Hagen Location: [place] [address] PCP: No primary care provider on file. [...] frequent falls Home meds per Johnson Chau, JERMAINE-NEGATIVE NOTCHER note: - Atorvastatin 20 mg daily - [...] receiving opioids - follow-up with PCP at [facility] for further benzo taper - [...] liquids, prior work-up reportedly normal - consider PRODUCT LEAD for swallow evaluation Discharge planning - tentative [...] Pain: Yes, chronic R shoulder pain on [place] Change in ADLs: Yes, s/p R hip fracture Dressing: independent Grooming: independent Bathing: moderate assistance Toileting: independent Continence: independent Feeding: independent Transfers: independent Transportation: moderate assistance Grocery shopping: moderate assistance Meal preparation: moderate assistance Housecleaning: moderate assistance Laundry: moderate assistance Finances: minimal assistance, occasionally needs reminders Telephone use: independent Medications: independent Living Situation: with 2 daughters, ni (more content not included)...The [facility] [id number] NoteOrthopaedic Surgery Progress Note S: Afib with [...] Temporal 120 19 100 % Nonrebreather 10 01/12/24 1223 -- -- -- 82 19 98 % Nasal cannula 3 05/14/23 1100 117/60 97.9 ???F (36.6 ???C) Oral 86 20 99 % Nasal cannula 3 05/14/23 0916 -- -- -- 90 18 98 % Nasal cannula 3 05/14/23 0905 97/60 -- -- 84 -- -- Nasal cannula -- Gen: NAD, AOx3 RLE: - baseline 3/ dorsiflexion - 09/04 PF/EHL - SILT s/s/t/dp/sp [...] Team A: Ortho Team A: Summer PGY-3 ([phone]); Fritz PGY-1 [phone]), Keanu PGY-4 [phone]) Between 5pm-7am, weekends, and holidays please page ortho consult pager with urgent/emergent issues, [phone] [facility] [id number] NotePHYSICAL THERAPY ACUTE EVALUATION Referral received, chart reviewed. Time In: 08 Time Out: 08 Patient seen for 10 minutes evaluation Unit: [facility] Admit date/time: 05/13/2023 9:30 PM Reason [...] wks d/t mandibular fracture Contact Precautions: CDiff Meyers Chuck Full Code NPO PLASTIC PRODUCTS SALES REPRESENTATIVE Status: Ambulatory with Cane at Baseline (+) [...] to decrease pain and to go home PLASTIC PRODUCTS SALES REPRESENTATIVE Status: Mod I for household mobility using [...] mobility. Recommend further therapy services in a Snf Setting once medically cleared. Will continue to [...] modified independent Patien (more content not included)...The [facility] [id number] Note OCCUPATIONAL THERAPY INITIAL EVALUATION Per RN: to keep patient at bed level for evaluation secondary to A-fib with RVR this A.M. Patient seen from 8:13 AM to 8:25 AM on 5 [facility] unit for 12 minutes. Reason for Admit: 72 year old female presents to [facility] c/o right hip pain after falling. Diagnosis: Displaced (L) mandibular condyle fracture with dislocated (L) TMJ joint (R) Intertrochanteric Femur Fx Precautions/Activity Order: Meyers Chuck Full code Contact precautions: C-diff WBAT RLE [...] Dep Max Mod Min CG CS DS MD I Set-Up Comment Feeding x Grooming/Hygiene x x Simulated at bed level Bathing:UB x Simulated at bed level Bathing:LB x Simulated at bed level Dressing:UB x x To adjust hospital gown at bed level Dressing: LB x To adjust socks at bed level Toileting x Kim+ Transfers/Bed Mobility: Assistance Level Dep Max Mod Min CG CS DS MD I Set-Up Comment Toilet Transfers NT: deferred secondary to a-fib with RVR; RN requesting OT hold mobility at this time Bed Transfers Bed Mobility Endurance for Self Care: Impaired Static Sitting Balance: Impaired Dynamic Sitting Balance: Impaired UE Motor: (B) UE AROM shoulder flexion ~3/4 range (B) UE elbow flex/ext WFL (B) UE wrist flex/ext WFL (B) drier unloader strength 4/5 Cognition: Orientation: Oriented to person, place, and date Follows Commands: WFL Patient/Family Education: Patient instructed in roles, goals, treatment plan: demonstrated good verbal understanding Patient up in bed with call light in reach. DME: With Patients permission ordered no equipment via [employer] Order. If any questions contact [facility] DME Provider at [phone]. 2 Clicks Daily Activity OT 05/15/2023 Help from [...] Guard Assist/Supervision 4 - Non = Modified [place]/Independent ASSESSMENT: Kate Hagen s/p Cephalomedullary ramon right [...] bed transfers w (more content not included)...The giftee01-12-2024 Note05/14/23 1627 Assessment and Discharge Planning Evaluation [...] as needed for discharge planning. KONRAD Rivas, LISWThe giftee01-12-2024 NoteOrthopaedic Surgery Progress Note S: Patient examined [...] trauma Cathy Juárez MD, PGY-2 Orthopaedic Surgery [facility] Pager: [phone] Ortho Team B: Cathy Juárez MD, PGY-2 Pager [phone] Jennifer Pond, PGY-2 Pager [phone] Pau Weaver MD, PGY-2 Pager [phone] Team A: Summer PGY-3 [phone]); Frizt PGY-1 ([phone]), Keanu PGY-4 [phone]) Elective Team: Stephanie PGY-3 [phone]); Alyssa PGY-2 ([phone]) Hand Team: Rachel, PGY-3 ([phone]) After 5pm, weekends, and holidays please page Ortho consult pager, [phone] [facility] CenterCeltaxsys [id number] NoteEXAMINATION: XR CHEST AP OR PA 1 [...] basilar atelectasis or airspace disease. MACRO: NoneThe [facility] [id number] NotePHYSICAL THERAPY CHART REVIEW Referral received, chart [...] Hysterectomy Hernia Repair Precautions: Contact Precautions: CDiff Meyers Chuck Full Code NPO PLASTIC PRODUCTS SALES REPRESENTATIVE Status: Ambulatory with Cane at Baseline (+) multiple falls over the past few weeks Plan is OR this date with Orthopedics for (R) Intertrochanteric Femur Fx Will HOLD PT Eval and f/u post-operatively Report to follow Kathleen Alonzo, PT, MPT (B) [phone] *Secure Chat with QuestionsThe [facility] [id number] NoteI have reviewed the patient's History and Physical Examination. I have personally seen and evaluated the patient, repeating kim portions. There is no significant interval change. Surgery is still indicated. Yes Consent reviewed and signed by patient/family: Yes Operative site verified: Yes Jennifer Pond, DO Orthopedic Surgery PGY-2 [facility] After 6:00 PM, or on weekends, please page the orthopaedic on-call resident at [phone].The [facility] [id number] Hospital Discharge instructions Patient Education 04/28/2023 10:24:50 Urinary Tract Infection, Adult, Wtzm-un-Tegx Urinary Tract Infection, Adult A urinary tract [...] Follow these instructions at home: Medicines Take zzpx-ajq-ffcbxfo and prescription medicines only as told by [...] provider. Document Revised: 11/29/2020 Document Reviewed: 11/29/2020 [employer] Patient Education 2022 [employer]. Follow Up Care 02/22/2023 10:37:46 With:Alec XIE, CARLY Grove, URO Address: When:Within 3 Month(s) [facility] 12-02-2023 Evaluation + Plan note* Assessment & Plan Note - Annika Kaba APRN-[facility]IMCO - 04/03/2023 12:04 PM ESTAssociated Problem(s): Current smoker Continued every day tobacco use. Have reviewed the negative cardiovascular impact of nicotine. Continues to decline pharmacological assistance. [facility] Work Phone: 1(354) 720-996112-02-2023 Evaluation + Plan note* Assessment & Plan Note - NATALIE Gonsalez - 04/03/2023 12:04 PM ESTAssociated Problem(s): Stage 3 chronic kidney disease (CMS/HCC) Report establish follow-up with Dr. Dean Last creatinine in our system was 4.2 [facility] Work Phone: 1(312) 261-600012-02-2023 Miscellaneous Notes* Assessment & Plan Note - NATALIE Gonsalez - 04/03/2023 12:04 PM ESTAssociated Problem(s): Current smoker Continued every day tobacco use. Have reviewed the negative cardiovascular impact of nicotine. Continues to decline pharmacological assistance. * Assessment & Plan Note - NATALIE Gonsalez - 04/03/2023 12:04 PM EST Associated Problem(s): Stage 3 chronic kidney disease ([facility]/HCC) Report establish follow-up with Dr. Dean Last [...] [facility]. Regular rate and rhythm on exam * Assessment & Plan Note - NATALIE Gonsalez - 04/03/2023 11:59 AM EST Associated Problem(s): Aortic stenosis October 2022 TTE Aortic Stenosis p46;m26 documented in this encounterPro[facility]ica [facility] Work Phone: 1(472) 517-797012-02-2023 Evaluation + Plan note* Assessment & Plan Note - NATALIE Gonsalez - 04/03/2023 12:03 PM ESTAssociated Problem(s): Diabetes mellitus type II, non insulin dependent (CMS/HCC) Maintained on statin No LONI/ARB due to CKD [facility] Work Phone: 1(502) 517-762112-02-2023 Evaluation + Plan note* Assessment & Plan Note - NATALIE Gonsalez - 04/03/2023 12:03 PM ESTAssociated Problem(s): Anticoagulated CHADS VASc 4 chronically anticoagulated full dose Eliquis age 72, weight 160 pounds. [facility] Work Phone: 1(872) 119-958312-02-2023 Evaluation + Plan note* Assessment & Plan Note - NATALIE Gonaslez - 04/03/2023 12:02 PM ESTAssociated Problem(s): Essential hypertension Optimal in office [facility] Work Phone: 1(802) 762-923712-02-2023 Evaluation + Plan note* Assessment & Plan Note - NATALIE Gonsalez - 04/03/2023 12:02 PM ESTAssociated Problem(s): Hyperlipidemia Low intensity statin [facility] Work Phone: 1([phone]) 815-448412-02-2023 Evaluation + Plan note* Assessment & Plan Note - NATALIE Gonsalez - 04/03/2023 12:00 PM ESTAssociated Problem(s): Abnormal echocardiogram October 2022 TTE LVEF 60 to 65% LA moderate/severe Aortic stenosis peak 46, mean 26 RVSP 84 mmHg (denies prior PE, longstanding tobacco abuse, chronic hypoxia and COPD) RV function and size were reportedly normal [facility] Work Phone: 1(192) 268-253612-02-2023 Evaluation + Plan note* Assessment & Plan Note - NATALIE Gonsalez - 04/03/2023 12:00 PM ESTAssociated Problem(s): A-fib (CMS/[facility]) Daughter believes this was diagnosed during one of the hospitalizations prior to being under the care of of an NO. Regular rate and rhythm on exam [facility] Work Phone: 1(287) 825-288812-02-2023 Evaluation + Plan note* Assessment & Plan Note - NATALIE Gonsalez - 04/03/2023 11:59 AM ESTAssociated Problem(s): Aortic stenosis October 2022 TTE Aortic Stenosis p46;m26 [facility] Work Phone: 1(951) 688-309511-28-2023 History of Present illness Narrative* NATALIE Gonsalez [...] December visit I requested cardiology records from [facility] and those were not obtained. She [...] December they reported paroxysmal atrial fibrillation diagnosed [id number]. Prior stress testing but no cardiac catheterization. [...] and incidence of candidiasis.Do not swallow. HYDROcodone-acetaminophen (Saran[place]) 5-325 mg tablet 1 tablet, oral levETIRAcetam [...] October 2022 TTE Aortic Stenosis p46;m26 A-fib ([facility]) Daughter believes this was diagnosed during one of the hospitalizations prior to being under the care of of an [facility]. Regular rate and rhythm on exam [...] Diabetes mellitus type II, non insulin dependent ([facility]) Maintained on statin No LONI/ARB due to CKD Stage 3 chronic kidney disease ([facility]) Report establish follow-up with Dr. Dean [...] contact the office if new symptoms arise. SOLE CUTTER 2 months I will get hospital records to see if she should be holding Kathie Kaba MSN, HUMAN RESOURCE CONSULTANT-NEGATIVE NOTCHER, PMHNP-[facility] Please excuse any errors in grammar or translation related to this dictation. Voice recognition software was utilized to prepare this document. documented in this [facility] Work Phone: 1(531) 277-664311-28-2023 Instructions* Patient Instructions* NATALIE Gonsalez - 03/30/2023 [...] contact the office if new symptoms arise. SOLE CUTTER 2 months I will get hospital records to see if she should be holding Eliquis documented in this [facility] Work Phone: 1(815) 939-727310-23-2023 Hospital Discharge instructions Patient Education 02/22/2023 10:33:13 [...] Up Care 02/03/2023 10:05:26 With:Jacqui Michael Address: [address] [place] [address] [phone] Business (1) [facility] [place], [address] [phone] [phone] Business (1) When: Unknown Comments:Office to schedule follow up in 1 to 2 months [place] [address]-04-2023 Hospital Discharge instructions Patient Education 02/03/2023 10:01:15 Urinary Tract Infection, Adult, Kxho-wa-Ubzs Urinary Tract Infection, Adult A urinary tract [...] Follow these instructions at home: Medicines Take xeah-ctz-mgszexc and prescription medicines only as told by [...] provider. Document Revised: 11/29/2020 Document Reviewed: 11/29/2020 [employer] Patient Education 2022 [employer]. Follow Up Care 07/29/2022 09:55:50 With:Alec XIE, CARLY Grove, URO Address: When: Unknown Comments:Sched cysto [facility] 08-29-2023 Hospital Discharge instructions Patient Education [...] Treatment for this condition includes: Antibiotic medicine. Vxne-qxj-fzdfptm medicines to treat discomfort. Drinking enough water [...] Follow these instructions at home: Medicines Take dfdj-ahk-nqpprdw and prescription medicines only as told by [...] provider. Document Revised: 11/29/2020 Document Reviewed: 11/29/2020 [employer] Patient Education 2022 [employer]. Follow Up Care 12/23/2022 14:08:39 With:Alec XIE, CARLY [place], URO Address: When: Unknown [facility] 07-22-2023 Progress note Author Colin Levy [facility] November 21, 2022 11:31am Note Date/Time November 21, 2022 11:3 1am [facility] [address] [place], [place] [id number] Cardiology Progress Note Signed Patient: Kate Hagen MR#: [id number] : 1950 Acct:[id number] Age/Sex: 71 / F Adm Date: 3 Loc: Room: [address] [place] [address] Type: ADM IN Attending Dr: Gina Poole [...] % (Auto) 70.8 Lymph % (Auto) 18.9 Harney % (Auto) 7.3 Eos % (Auto) 2.7 Baso % (Auto) 0.3 Nucleat RBC Rel Count 0.1 Neut # (Auto) 4.1 Lymph # (Auto) 1.1 Harney # (Auto) 0.4 Eos # (Auto) 0.2 Baso # (Auto) 0.0 PHA Creatinine Clear Sodium Potassium Chloride Carbon Dioxide Anion Gap BUN Creatinine Est GFR (CKD-EPI) Glucose POC Glucose 123 135 Calcium 11/21/22 11/21/22 04:47 08:37 Corrected WBC Uncorrected WBC Count RBC Hgb Hct MCV MCH MCHC RDW Plt Count MPV Neut % (Auto) Lymph % (Auto) Harney % (Auto) Eos % (Auto) Baso % (Auto) Nucleat RBC Rel Count Neut # (Auto) Lymph # (Auto) Harney # (Auto) Eos # (Auto) Baso # [...] aggressive diuresis Documented By: Colin Levy MD, [facility] 3 [id number] Signed By: <Electronically signed by MD PLACIDO Levy> 11/21/22 1131 [facility] Work Phone: 1(201) 150-299907-21-2023 Progress note Author Gina Poole [facility] November 20, 2022 2:12pm Note Date/Time November 20, 2022 2:12 pm [facility] [address] [place] [address] Hospitalist Progress Note Signed Patient: Kate Hagen MR#: [id number] : 1950 Acct:[id number] Age/Sex: 71 / F Adm Date: 3 Loc: Room: [address] [place] [address] Type: ADM IN Attending Dr: Gina Poole [...] Insuln.Pen SUBCUT 11/19/23 11:59 Not Given TID.[facility] Protocol Magnesium Oxide 400 mg 11/19/22 09:00 [...] signed by Gina Poole, > 11/20/22 1412 [facility] Work Phone: 1(694) 223-369707-21-2023 Progress note Author Jose Arriaga [facility] November 20, 2022 10:30am Note Date/Time November 20, 2022 10:3 0am [facility] [address] [place] [address] Cardiology Progress Note Signed Patient: Kate Hagen MR#: [id number] : 1950 Acct:[id number] Age/Sex: 71 / F Adm Date: 3 Loc: Room: [address] [place] [address] Type: ADM IN Attending Dr: Gina Poole [...] MPV Neut % (Auto) Lymph % (Auto) Harney % (Auto) Eos % (Auto) Baso % (Auto) Nucleat RBC Rel Count Neut # (Auto) Lymph # (Auto) Harney # (Auto) Eos # (Auto) Baso # [...] % (Auto) 68.4 Lymph % (Auto) 22.4 Harney % (Auto) 6.7 Eos % (Auto) 2.1 Baso % (Auto) 0.4 Nucleat RBC Rel Count 0.1 Neut # (Auto) 3.7 Lymph # (Auto) 1.2 Harney # (Auto) 0.4 Eos # (Auto) 0.1 [...] MPV Neut % (Auto) Lymph % (Auto) Harney % (Auto) Eos % (Auto) Baso % (Auto) Nucleat RBC Rel Count Neut # (Auto) Lymph # (Auto) Harney # (Auto) Eos # (Auto) Baso # [...] signed by MD Jose Arriaga> 11/20/22 1030 [facility] Work Phone: 1(581) 130-914207-20-2023 Consult note Author Jose Arriaga [facility] November 19, 2022 2:59pm Note Date/Time November 19, 2022 2:59 pm [facility] [address] [place] [address] Cardiology Consult Note Signed Patient: Kate Hagen MR#: [id number] : 1950 Acct:[id number] Age/Sex: 71 / F Adm Date: 3 Loc: Room: [address] [place] [address] Type: ADM IN Attending Dr: Gina Poole [...] Lymph # (Auto) 1.5 1.6 (1.00-4.8) x10E3/uL Harney # (Auto) 0.4 0.4 (0.0-0.8) x10E3/uL Eos [...] signed by MD Jose Arriaga> 11/19/22 1459 [facility] Work Phone: 1(355) 420-473607-20-2023 Progress note Author Gina Poole [facility] November 19, 2022 11:54am Note Date/Time November 19, 2022 11:5 4am [facility] EN[facility] [address] [place] [address] Hospitalist Progress Note Signed Patient: Kate Hagen MR#: [id number] : 1950 Acct:[id number] Age/Sex: 71 / F Adm Date: 3 Loc: Room: [address] [place] [address] Type: ADM IN Attending Dr: Gina Poole [...] <Electronically signed by Gina Poole DO> 11/19/22 8610 [facility] Work Phone: 1(953) 913-771007-20-2023 History and physical note Author Gina Poole [facility] November 18, 2022 10:13pm Note Date/Time November 18, 2022 10:1 1pm [facility] EN[facility] [address] [place] [address] Hospitalist H&P Signed Patient: Kate Hagen MR#: [id number] : 1950 Acct:[id number] Age/Sex: 71 / F Adm Date: 3 Loc: Room: [address] [place] [address] Type: ADM IN Attending Dr: Gina Poole [...] negative unless noted below or in HPI [facility] Vaccinated for COVID-19?: No Medical History (Updated [...] % (Auto) 22.5 % (.) 11/18/22 17:51 Harney % (Auto) 5.7 % (.) 11/18/22 17:51 Eos % (Auto) 1.7 % (.) 11/18/22 17:51 Baso % (Auto) 0.7 % (.) 11/18/22 17:51 Nucleat RBC Rel Count 0.0 /100 WBC (0-0.5) 11/18/22 17:51 Neut # (Auto) 4.7 x10E3/uL (1.8-7.7) 11/18/22 17:51 Lymph # (Auto) 1.5 x10E3/uL (1.00-4.8) 11/18/22 17:51 Harney # (Auto) 0.4 x10E3/uL (0.0-0.8) 11/18/22 17:51 [...] <Electronically signed by Gina Poole DO> 11/18/22 5779 [facility] Work Phone: [phone]) 998-403906-27-2023 NoteHypertension is well controlled 108/62 Continue all meds Renal function stable for her- will continue to monitor and pt states she is to start F/[place] [facility] Zhou [facility] [place] [facility] NoteNYHC- III- currently fluid overloaded and weight gain of 15 pounds in 2 weeks Continue GDMT- farxiga Diuretic therapy-increase bumex to 2mg in am and 1 mg in pm, repeat BMP next week Monitor daily weights, I&O, fluid restriction 1.5-2L/day, renal function and electrolytes- RTC 1month for re-evalautionUnOhioHealth [facility]06-27-2023 Note Repeat limited echo to assess RV function, RVSP- rt sided pressures, and noted D shaped septum on inpt echo.[facility]06-27-2023 Note [id number]= 4 continue metoprolol for rate control, and eliquis anticoagulationUnOhioHealth [place] [facility] Hospital06-27-2023 NotePatient here for follow up [facility] for CHF. She was seen [...] weakness. All other systems reviewed and are negative.[facility] 10-27-2022 NoteUTP CARDIOLOGY PROGRESS NOTE HPI: Kate Hagen is a 71 y.o. female here for No chief complaint on file. Patient here for follow up [facility] for CHF. She was seen [...] fever, chills. She recently was inpt at [facility] for resp failure, exacerbation of [...] Tachycardia - sinus Hypertension Paroxysmal atrial fibrillation; [id number] - 4 (age, female, HTN, HF) - [...] reviewed CV Testin10/09/22 Echo (more content not included)...[facility]05-23-2023 Note [facility] Cardiology Clinic Note Chief Complaint: patient [...] Eliquis. HPI: Kate was originally seen by [place] [facility] during her admission to [facility] at the beginning of March,. [...] 04/13/2022 Today she was just discharged from [facility] where she was admitted for [...] a past medical history of Atrial fibrillation (CMS/[facility]) and CHF (congestive heart failure) (CMS/[facility]). Surgical History She has no past [...] pressures. Event monitor: Sinus (more content not included)...[facility]04-27-2023 Evaluation note* Encounter Date Diagnosis Assessment Notes [...] We will check PTH and vitamin D. [facility] Other 03-29-2023 Hospital Discharge instructions Patient Education [...] 04/19/2006 Document Revised: 01/06/2019 Document Reviewed: 03/19/2017 [employer] Patient Education 2020 [employer] Follow Up Care 06/10/2022 11:44:43 With:Alec XIE, Jacqui M., URL, URO Address: When:Within 6 Month(s) [facility] Chief Complaint: Patient here for 3 mo follow up CHF and afib. She was started on spironolactone at last apt in Apr 2022 by Linette Sanchez CNP. Had labs a few days after that. Denies chest pain and palpitations. Denies lightheadedness and bleeding on Eliquis. HPI: Kate was originally seen by [place] [facility] during her admission to [facility] at the beginning of March,. [...] 04/13/2022 Today she was just discharged from [facility] where she was admitted for [...] fraction (HFrEF) Tachycardia Hypertension Paroxysmal atrial fibrillation; [id number] - 4 (age, female, HTN, HF) - she requires long-term anticoagulation for stroke prophylaxis. She denies bleeding issues. Continue Eliquis 5mg BID. Nonrheumatic aortic valve stenosis; moderate on echocardiogram 08/2021 Benign hypertensive kidney disease with chronic kidney disease stage I through stage IV Plan: The patient's daughter tells me that her mother's heart rate is typical (more content not included)...[facility]02-08-2023 Hospital Discharge instructions Patient Education 06/10/2022 10:53:36 [...] Follow these instructions at home: Medicines Take esqx-koz-lnxuuvc and prescription medicines only as told by [...] or the blood stops without treatment. Take lfpy-zol-focsapg and prescription medicines only as told by your health care provider. Drink enough fluid to keep your urine clear or pale yellow. This information is not intended to replace advice given to you by your health care provider. Make sure you discuss any questions you have with your health care provider. Document Released: 04/19/2006 Document Revised: 09/13/2019 Document Reviewed: 05/22/2017 [employer] Patient Education 2019 [employer] Follow Up Care 05/06/2022 14:07:41 With:Alec XIE, CARLY [place], URO Address: When: Unknown [facility] 12-12-2022 NotePatient here for follow up [facility] for CHF. She was seen as inpatient consult on 03/06/2022 by Madi Sanchez CNP. She was just discharged from [facility] again today for UTI and pneumonia. She will be having iron infusions set up soon for anemia. Denies chest pain and bleeding on Eliquis. Review of Systems Cardiovascular: Positive for dyspnea on exertion. Respiratory: Positive for shortness of breath. Musculoskeletal: Positive for muscle weakness. Neurological: Positive for seizures (hx of). All other systems reviewed and are negative.[facility] 04-13-2022 NoteCardiovascular Medicine [facility] SUBJECTIVE Chief Complaint Patient presents with Congestive Heart Failure Atrial Fibrillation Kate Hagen is a 71 y.o. female here for follow-up. HPI Kate was originally seen by [place] [facility] during her admission to [facility] at the beginning of March,. [...] 04/13/2022 Today she was just discharged from [facility] where she was admitted for [...] is warm and dry. (more content not included)...[facility]10-17-2022 Hospital Discharge instructions Patient Education 02/16/2022 13:00:15 [...] ?Tomatoes and foods made with tomatoes. ?[place] or spicy foods. ?Chocolate and peppermint. Do not drink alcohol. General instructions Take pizm-tko-hjkaxzs and prescription medicines only as told by [...] unsweetened, w/added ascorbic acid 1 cup 0.5 Camas 1 cup 0.7 Vegetables Cooked Green beans 1 cup 4.0 Carrots 1/2 cup sliced 2.3 Peas 1 cup 8.8 Potato (baked, with skin) 1 medium potato 3.8 Raw [place] (with peel) 1 cucumber 1.5 Lettuce 1 [...] Peanuts 1/2 cup 7.9 Chart from [facility] 2012. 02/16/2022 13:00:15 Colonoscopy, Care After Surgery Salam (Custom) Colonoscopy Care After Surgery Please read the instructions outlined below and refer to this sheet in the next few weeks. These discharge instructions provide you with general information on caring for yourself [facility] Your doctor may also give you specific [...] Up Care 12/31/2021 15:48:46 With:Kylah BELL Address: [address] [place] [address]. [address] [place] [address] Business (1) When: Unknown Comments:Call for any problems.Office will call to schedule follow up appointment (appointment for 1-2 weeksfrom today) [facility]10-17-2022 Evaluation + Plan noteExtracted from: Title:Anesthesia post op endo Author:Barry Huddleston MD Date:02/16/22 Plan Transfer/ Discharge: Patient can be discharged from PACU when criteria met. Condition good. Extracted from: Title:Anesthesia Pre-Op endo Author:Mine Huddleston MD Date:02/16/22 Plan [place] [employer]esthesi[employer] (ASA) physical status classification: [...] Diff 12/31/21 * Comprehensive Metabolic Panel 12/31/21 [facility]08-31-2022 Hospital Discharge instructions Patient Education 12/31/2021 14:40:35 [...] ?Tomatoes and foods made with tomatoes. ?[place] or spicy foods. ?Chocolate and peppermint. Do not drink alcohol. General instructions Take qehs-brb-nqjibhh and prescription medicines only as told by [...] 07/09/2004 Document Revised: 08/15/2018 Document Reviewed: 08/15/2018 [employer] Patient Education 2020 [employer]. Follow Up Care 11/24/2021 14:47:03 With:Lani Wasserman CNP Address: When:1 to 2 weeks [facility] 08-13-2022 Evaluation note* Encounter [...] understanding and is agreeable with treatment plan [facility] Other 12-01-2021 History general Narrative - Reported* Type Description Date Medical History Macular degeneration bilateral e yes Medical History Continuous oxygen 2L/NC Medical History CHF- Does not follow with Cardio logy, managed by PCP Dr. Lora Medical History COPD Medical History Hx of [employer] 04/2021 [facility] Other 12-01-2021 History general Narrative - Reported* Type Description Date Medical History Macular degeneration bilateral e yes Medical History Continuous oxygen 2L/NC Medical History CHF- Does not follow with Cardiology, managed by PCP Dr. Lora Medical History COPD Medical History Hx of [facility] 04/2021 Medical History OSTEOPORESIS Surgical History GALL BLADDER Surgical History HERNIA REPAIR Surgical History BOWEL REDUCTION Surgical History HYSTERECTOMY 1994 Hospitalization History SEE ABOVE [facility] Other Consult note Author Jose Arriaga [facility] November 19, 2022 2:59pm Note Date/Time November 19, 2022 2:59 pm [facility] EN[facility] [address] [place] [address] Cardiology Consult Note Signed Patient: Kate Hagen MR#: [id number] : 1950 Acct:[id number] Age/Sex: 71 / F Adm Date: 3 Loc: 4 Room: [address] [place] [address] Type: ADM IN Attending Dr: Gina Poole [...] Lymph # (Auto) 1.5 1.6 (1.00-4.8) x10E3/uL Harney # (Auto) 0.4 0.4 (0.0-0.8) x10E3/uL Eos [...] failure treatment. Documented By: Jose Arriaga MD 145 Signed By: <Electronically signed by MD Jose Arriaga> 11/19/22 1459 [facility] Work Phone: Discharge summary Author Gina Poole [facility] November 21, 2022 3:38pm Note Date/Time November 21, 2022 3:39 pm [facility] EN[facility] [address] [place] [address] Discharge Summary Signed Patient: Kate Hagen MR#: [id number] : 1950 Acct:[id number] Age/Sex: 71 / F Adm Date: 3 Loc: 4 Room: 0D3018-[address]: Gina Poole DO Copies to: [...] % (Auto) 70.8, Lymph % (Auto) 18.9, Harney % (Auto) 7.3, Eos % (Auto) 2.7, Baso % (Auto) 0.3, Nucleat RBC Rel Count 0.1, Neut # (Auto) 4.1, Lymph # (Auto) 1.1, Harney # (Auto) 0.4, Eos # (Auto) 0.2, [...] signs - Medication management and education - [facility] on 11/26 - result to Primary [...] Determined by Patient Ordered By: Jose Arriaga [facility] (Routine) Timeframe: 1 Day Location: [...] signed by Gina Poole DO> 11/21/22 1538 [facility] Work Phone: Evaluation + Plan note Future Appointments Appointment Date:02/06/2022 01:00:00 PM Scheduled Provider: Location:[facility] Appointment Type:Surgery PAT COVID Testing Appointment Date:02/16/2022 10:30:00 AM Scheduled Provider: Location:[facility] Appointment Type:Surgery FT Appointment Date:02/16/2022 12:30:00 PM Scheduled Provider: Location:[facility] Appointment Type:Surgery FT Future Scheduled Tests Laboratory* Fecal WBC Lactoferrin 12/31/21 * Giardia lamblia, Direct Detection EIA 12/31/21 * O & P Exam, Routine 12/31/21 * Clostridium difficile by PCR 12/31/21 * Enteric Panel by PCR 12/31/21 * CBC w/ Auto Diff 12/31/21 * Comprehensive Metabolic Panel 12/31/21 Radiology* CT Abdomen/Pelvis w/ Contrast 12/31/21 [facility] Evaluation + Plan note Future Appointments Appointment Date:02/16/2022 10:30:00 AM Scheduled Provider: Location:[facility] Appointment Type:Surgery FT Appointment Date:02/16/2022 12:30:00 PM Scheduled Provider: Location:[facility] Appointment Type:Surgery FT Future Scheduled Tests Laboratory* Fecal WBC Lactoferrin 12/31/21 * Giardia lamblia, Direct Detection EIA 12/31/21 * O & P Exam, Routine 12/31/21 * Clostridium difficile by PCR 12/31/21 * Enteric Panel by PCR 12/31/21 * CBC w/ Auto Diff 12/31/21 * Comprehensive Metabolic Panel 12/31/21 [facility] Future Appointments Appointment Date:06/10/2022 09:30:00 AM Scheduled Provider:Alec XIE, Jacqui Nieves Location:[facility] Appointment Type:URO Office Visit Future Scheduled Tests Laboratory* Fecal WBC Lactoferrin 12/31/21 * Giardia lamblia, Direct Detection EIA 12/31/21 * O & P Exam, Routine 12/31/21 * Clostridium difficile by PCR 12/31/21 * Enteric Panel by PCR 12/31/21 * CBC w/ Auto Diff 12/31/21 * Comprehensive Metabolic Panel 12/31/21 [facility] Future Appointments Appointment Date:06/24/2022 08:30:00 AM Scheduled Provider: Location:[facility] Appointment Type:URO Nurse Visit Appointment Date:07/29/2022 09:00:00 AM Scheduled Provider:Jacqui Michael MD Location:[facility] Appointment Type:URO Office Visit Diagnostic [...] * Comprehensive Metabolic Panel 12/31/21 [facility] evaluation + Plan note Future Appointments Appointment Date:06/24/2022 08:30:00 AM Scheduled Provider: Location:[facility] Appointment Type:URO Nurse Visit Appointment Date:07/29/2022 09:00:00 AM Scheduled Provider:Jacqui Michael MD Location:[facility] Appointment Type:URO Office Visit Diagnostic Tests Pending * Urine Culture 06/10/22 Future Scheduled Tests Laboratory* Fecal WBC Lactoferrin 12/31/21 * Giardia lamblia, Direct Detection EIA 12/31/21 * O & P Exam, Routine 12/31/21 * Clostridium difficile by PCR 12/31/21 * Enteric Panel by PCR 12/31/21 * CBC w/ Auto Diff 12/31/21 * Comprehensive Metabolic Panel 12/31/21 [facility] Future Appointments Appointment Date:07/29/2022 09:00:00 AM Scheduled Provider:Jacqui Michael MD Location:[facility] Appointment Type:URO Office Visit Future Scheduled Tests Laboratory* Fecal WBC Lactoferrin 12/31/21 * Giardia lamblia, Direct Detection EIA 12/31/21 * O & P Exam, Routine 12/31/21 * Clostridium difficile by PCR 12/31/21 * Enteric Panel by PCR 12/31/21 * CBC w/ Auto Diff 12/31/21 * Comprehensive Metabolic Panel 12/31/21 [facility] evaluation + Plan note Future Appointments Appointment Date:02/03/2023 09:00:00 AM Scheduled Provider:Jacqui Michael MD Location:[facility] Appointment Type:URO Office Visit Future Scheduled Tests Laboratory* Fecal WBC Lactoferrin 12/31/21 * Giardia lamblia, Direct Detection EIA 12/31/21 * O & P Exam, Routine 12/31/21 * Clostridium difficile by PCR 12/31/21 * Enteric Panel by PCR 12/31/21 * CBC w/ Auto Diff 12/31/21 * Comprehensive Metabolic Panel 12/31/21 [facility] evaluation + Plan note Future Appointments Appointment Date:02/08/2023 09:45:00 AM Scheduled Provider: Location:[facility] Appointment Type:Urology CALL PAT FT Appointment Date:02/22/2023 10:45:00 AM Scheduled Provider: Location:[facility] Appointment Type:Urology FT [facility] evaluation + Plan note Future Appointments Appointment Date:04/28/2023 09:45:00 AM Scheduled Provider:Jacqui Michael MD Location:[facility] Appointment Type:URO [facility] Visit [facility] Future Appointments Appointment Date:05/14/2023 01:20:00 PM Scheduled Provider:Lani Wasserman CNP Location:[facility] Follow Up [facility] evaluation + Plan note Future Appointments Appointment Date:03/15/2024 10:45:00 AM Scheduled Provider:Jacqui Michael MD Location:[facility] Appointment Type:URO Office Visit [facility] evaluation note* Diagnosis Onset Date Resolution Status CHF (congestive heart failure) acute CHF exacerbation [facility] Work Phone: Evaluation note* Diagnosis Onset Date Resolution Status Acute diastolic CHF (congest joan heart failure), NYHA class 3 acute Aortic stenosis acute CHF (congestive heart failure) acute CHF exacerbation acute Pulmonary hypertension acute [facility] Work Phone: Evaluation note* Diagnosis Paroxysmal atrial fibrillation (CMS/HCC)- Primary Atrial fibrillation Anticoagulated Encounter for long-term (current) use of anticoagulants Nonrheumatic aortic valve stenosis Abnormal echocardiogram Nonspecific (abnormal) findings on radiological and other examination of other intrathoracic organs Pulmonary hypertension (CMS/HCC) Other chronic pulmonary heart diseases Stage 3a chronic kidney disease (CMS/HCC) Current smoker Diabetes mellitus type II, non insulin dependent ([facility]/HCC) Type II or unspecified type diabetes mellitus without mention of complication, not stated as uncontrolled BMI 31.0-31.9,adult Mixed hyperlipidemia Essential hypertension Unspecified essential hypertension documented in this encounter [facility] Work Phone: Evaluation note* Diagnosis Nonrheumatic aortic valve stenosis Pulmonary hypertension (CMS/HCC) Other chronic pulmonary heart diseases documented in this encounter [facility] Work Phone: Evaluation note* Diagnosis Nonrheumatic aortic valve stenosis Pulmonary hypertension (CMS/HCC) Other chronic pulmonary heart diseases documented in this encounter [facility] [facility] Work Phone: Evaluation note* Diagnosis Closed displaced intertrochanteric fracture of right femur, initial encounter ([facility])- [facility] Closed displaced intertrochanteric fracture of right femur, initial encounter ([facility]) [facility] Diagnosis Anticoagulated- Primary Encounter for long-term (current) use of anticoagulants Paroxysmal atrial fibrillation (CMS/HCC) Atrial fibrillation Nonrheumatic aortic valve stenosis Abnormal echocardiogram Nonspecific (abnormal) findings on radiological and other examination of other intrathoracic organs Pulmonary hypertension (CMS/HCC) Other chronic pulmonary heart diseases Mixed hyperlipidemia Essential hypertension Unspecified essential hypertension Diabetes mellitus type II, non insulin dependent ([facility]/HCC) Type II or unspecified type diabetes mellitus without mention of complication, not stated as uncontrolled Stage 3b chronic kidney disease ([facility]/HCC) BMI 25.0-25.9,adult Current smoker documented in this encounter [facility] Work Phone: Evaluation note* Diagnosis Edentulous- Primary Anodontia [facility] Diagnosis Edentulous- Primary Anodontia [facility] Diagnosis Closed displaced intertrochanteric fracture of right femur, initial encounter ([facility])- Primary [facility] Diagnosis Closed displaced intertrochanteric fracture of right femur, initial encounter ([facility]) [facility] Diagnosis Onset Date Resolution Status Acute kidney injury superimposed on CKD acute Hypocalcemia acute Hypomagnesemia acute UTI (urinary tract infection) acute [facility] Work Phone: Evaluation note* Diagnosis Onset Date Resolution Status Acute kidney injury superimposed on CKD acute Anemia of renal disease acut e Hypocalcemia acute Hypomagnesemia acute Secondary hyperparathyroidism (of renal origin) acute UTI (urinary tract infection) acute [facility] Work Phone: Evaluation note* Diagnosis Onset Date [...] acute Stage 3 chronic kidney disease noneactive [facility] Work Phone: Evaluation note* Diagnosis Panic attacks ([facility]) Panic disorder without agoraphobia documented in this encounter [facility]* Diagnosis Xerosis cutis- Primary Other specified disease of sebaceous glands Diabetes mellitus due to underlying condition with diabetic polyneuropathy, 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 ([facility]) Pain due to onychomycosis of toenails of both feet documented in this encounter [facility]* Diagnosis Closed displaced intertrochanteric fracture of right femur, initial encounter (HCC)- Primary documented in this encounter [facility] [employer] [facility] Work Phone: Evaluation note* Diagnosis Closed displaced intertrochanteric fracture of right femur, initial encounter ([facility]) documented in this encounter [facility] [employer] [facility] Work Phone: Evaluation note* Diagnosis CKD (chronic kidney disease) stage 4, GFR 15-29 ml/min ([facility])- Primary Chronic kidney disease, Stage IV (severe) Benign hypertensive kidney disease with chronic kidney disease stage I through stage IV, or unspecified ([facility]) Psoriatic arthritis ([facility]) Psoriatic arthropathy documented in this encounter [facility] HealthcareEvaluation note* Diagnosis Psoriatic arthritis ([facility]) Psoriatic arthropathy documented in this encounter [facility] HealthcareEvaluation note* Diagnosis CKD (chronic kidney disease) stage 4, GFR 15-29 ml/min ([facility]/HCC)- Primary Chronic kidney disease, Stage IV (severe) Benign hypertensive kidney disease with chronic kidney disease stage I through stage IV, or unspecified ([facility]) Chronic diastolic congestive heart failure ([facility]) Diabetic nephropathy associated with type 2 diabetes mellitus (HCC) ([facility]) Diarrhea, unspecified type Clostridium difficile colitis Intestinal infection due to clostridium difficile documented in this encounter [facility] HealthcareEvaluation note* Diagnosis Nonrheumatic aortic valve stenosis Paroxysmal atrial fibrillation (Multi) Atrial fibrillation Abnormal echocardiogram Nonspecific (abnormal) findings on radiological and other examination of other intrathoracic organs Pulmonary hypertension (Multi) Other chronic pulmonary heart diseases Mixed hyperlipidemia Essential hypertension Unspecified essential hypertension Anticoagulated Encounter for long-term (current) use of anticoagulants Stage 3b chronic kidney disease (Multi) Current smoker documented in this encounter [facility] Work Phone: Evaluation note* Diagnosis Acute bronchitis, unspecified organism- Primary Age-related osteoporosis without current pathological fracture ([facility]) Flu vaccine need CKD (chronic kidney disease) stage 4, GFR 15-29 ml/min ([facility]) Chronic kidney disease, Stage IV (severe) Psoriatic arthritis ([facility]) Psoriatic arthropathy documented in this encounter [facility] HealthcareEvaluation note* Diagnosis Xerosis cutis- Primary Other specified disease of sebaceous glands Diabetes mellitus due to underlying condition with diabetic polyneuropathy, 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 ([facility]) Onychomycosis Dermatophytosis of nail Toe pain, bilateral documented in this encounter [facility] HealthcareEvaluation note* Diagnosis Clostridium difficile diarrhea- Primary Intestinal infection due to clostridium difficile documented in this encounter [facility] HealthcareEvaluation note* Diagnosis Xerosis cutis Other specified disease of sebaceous glands documented in this encounter [facility] HealthcareEvaluation note* Diagnosis Gastroesophageal reflux disease without esophagitis Esophageal reflux documented in this encounter [facility] HealthcareEvaluation note* Diagnosis Panic attacks ([facility]) Panic disorder without agoraphobia documented in this encounter [facility] HealthcareEvaluation note* Diagnosis Paroxysmal atrial fibrillation (Multi)- Primary Atrial fibrillation Anticoagulated Encounter for long-term (current) use of anticoagulants Nonrheumatic aortic valve stenosis Abnormal echocardiogram Nonspecific (abnormal) findings on radiological and other examination of other intrathoracic organs Pulmonary hypertension (Multi) Other chronic pulmonary heart diseases Stage 3a chronic kidney disease (Multi) Current smoker Diabetes mellitus type II, non insulin dependent (Multi) Type II or unspecified type diabetes mellitus without mention of complication, not stated as uncontrolled BMI 31.0-31.9,adult Mixed hyperlipidemia Essential hypertension Unspecified essential hypertension Anticoagulated- Primary Encounter for long-term (current) use of anticoagulants Paroxysmal atrial fibrillation (Multi) Atrial fibrillation Nonrheumatic aortic valve stenosis Abnormal echocardiogram Nonspecific (abnormal) findings on radiological and other examination of other intrathoracic organs Pulmonary hypertension (Multi) Other chronic pulmonary heart diseases Mixed hyperlipidemia Essential hypertension Unspecified essential hypertension Diabetes mellitus type II, non insulin dependent (Multi) Type II or unspecified type diabetes mellitus without mention of complication, not stated as uncontrolled Stage 3b chronic kidney disease (Multi) BMI 25.0-25.9,adult Current smoker Paroxysmal atrial fibrillation (Multi) Atrial fibrillation Nonrheumatic aortic valve stenosis Pulmonary hypertension (Multi) Other chronic pulmonary heart diseases Mixed hyperlipidemia Essential hypertension Unspecified essential hypertension Anticoagulated Encounter for long-term (current) use of anticoagulants Diabetes mellitus type II, non insulin dependent (Multi) Type II or unspecified type diabetes mellitus without mention of complication, not stated as uncontrolled Stage 3b chronic kidney disease (Multi) Chronic obstructive pulmonary disease, unspecified COPD type (Multi) Body mass index 28.0-28.9, adult Body Mass Index 28.0-28.9, adult Current smoker Congestive heart failure, unspecified HF chronicity, unspecified heart failure type documented in this encounter [facility] Work Phone: Evaluation note* Diagnosis Xerosis cutis- Primary Other specified disease of sebaceous glands Diabetes mellitus due to underlying condition with diabetic polyneuropathy, 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 ([facility]) Pain due to onychomycosis of toenails of both feet documented in this encounter [facility] HealthcareHistory and physical note Author Gina Poole [facility] November 18, 2022 10:13pm Note Date/Time November 18, 2022 10:1 1pm [facility] [address] [place] [address] Hospitalist H&P Signed Patient: Kate Hagen MR#: [id number] : 1950 Acct:[id number] Age/Sex: 71 / F Adm Date: 3 Loc: Room: [address] [place] [address] Type: ADM IN Attending Dr: Gina Poole [...] negative unless noted below or in HPI [facility] Vaccinated for COVID-19?: No Medical History (Updated [...] % (Auto) 22.5 % (.) 11/18/22 17:51 Harney % (Auto) 5.7 % (.) 11/18/22 17:51 Eos % (Auto) 1.7 % (.) 11/18/22 17:51 Baso % (Auto) 0.7 % (.) 11/18/22 17:51 Nucleat RBC Rel Count 0.0 /100 WBC (0-0.5) 11/18/22 17:51 Neut # (Auto) 4.7 x10E3/uL (1.8-7.7) 11/18/22 17:51 Lymph # (Auto) 1.5 x10E3/uL (1.00-4.8) 11/18/22 17:51 Harney # (Auto) 0.4 x10E3/uL (0.0-0.8) 11/18/22 17:51 [...] <Electronically signed by Gina Poole DO> 11/18/22 5537 [facility] Work Phone: History and physical note Author Michelle Lock [facility] November 08, 2023 6:58pm Note Date/Time November 08, 2023 6:51p m [facility] [address] [place] [address] Hospitalist H&P Signed with Colby Patient: Kate Hagen MR#: [id number] : 1950 Acct:[id number] Age/Sex: 72 / F Adm Date: 4 Loc: 3T Room: [address] [place] [address] Type: ADM IN Attending Dr: Michelle Lock [...] negative unless noted below or in HPI [facility] Medical History Arthritis Problem List clean-up [...] % (Auto) 9.5 % (.) 11/08/23 12:12 Harney % (Auto) 4.7 % (.) 11/08/23 12:12 Eos % (Auto) 1.3 % (.) 11/08/23 12:12 Baso % (Auto) 0.3 % (.) 11/08/23 12:12 Nucleat RBC Rel Count 0.0 /100 WBC (0-0.5) 11/08/23 12:12 Neut # (Auto) 12.2 x10E3/uL (1.8-7.7) H 11/08/23 12:12 Lymph # (Auto) 1.4 x10E3/uL (1.00-4.8) 11/08/23 12:12 Harney # (Auto) 0.7 x10E3/uL (0.0-0.8) 11/08/23 12:12 [...] pH 5.0 (5.0-9.0) 11/08/23 14:51 Ur Specific Minerva 1.008 (1.001-1.030) 11/08/23 14:51 Urine Protein Trace [...] days): 3 Documented By: Michelle Lock 4 1849 Signed By: <Electronically signed by Michelle Lock> 11/08/231856 [facility] Work Phone: History of Present illness Narrative* [...] medication regimen. She denies medication side effects. [facility] DO Work Phone: Hospital course Narrative No data available for this section [facility] Discharge instructions No data available for this section [facility] instructions[facility] Orders* Initiate Home Health Time Frame: 1 Day, Location: Determined By Patient Additional Instructions Home Health to manage care: - Full code - PT/OT eval and treat - Routine vital signs - Medication management and education - BMP on 11/26 - result to Primary Care Provider -[facility] Work Phone: Progress note No data available for this section [facility] Progress note Author Gina Poole [facility] November 19, 2022 11:54am Note Date/Time November 19, 2022 11:5 4am [facility] [address] [place] [address] Hospitalist Progress Note Signed Patient: Kate Hagen MR#: [id number] : 1950 Acct:[id number] Age/Sex: 71 / F Adm Date: 3 Loc: Room: [address] [place] [address] Type: ADM IN Attending Dr: Gina Poole [...] 300 Units/3 Ml Insuln.Pen SUBCUT 11/19/23 11:59 TID.[facility] Protocol Magnesium Oxide 400 mg 11/19/22 09:00 [...] <Electronically signed by Gina Poole, DO> 11/19/22 1154 [facility] Work Phone: Progress note Author Jose Arriaga [facility] November 20, 2022 10:30am Note Date/Time November 20, 2022 10:3 0am [facility] [address] [place] [address] Cardiology Progress Note Signed Patient: Kate Hagen MR#: [id number] : 1950 Acct:[id number] Age/Sex: 71 / F Adm Date: 3 Loc: Room: [address] [place] [address] Type: ADM IN Attending Dr: Gina Poole [...] MPV Neut % (Auto) Lymph % (Auto) Harney % (Auto) Eos % (Auto) Baso % (Auto) Nucleat RBC Rel Count Neut # (Auto) Lymph # (Auto) Harney # (Auto) Eos # (Auto) Baso # [...] % (Auto) 68.4 Lymph % (Auto) 22.4 Harney % (Auto) 6.7 Eos % (Auto) 2.1 Baso % (Auto) 0.4 Nucleat RBC Rel Count 0.1 Neut # (Auto) 3.7 Lymph # (Auto) 1.2 Harney # (Auto) 0.4 Eos # (Auto) 0.1 [...] MPV Neut % (Auto) Lymph % (Auto) Harney % (Auto) Eos % (Auto) Baso % (Auto) Nucleat RBC Rel Count Neut # (Auto) Lymph # (Auto) Harney # (Auto) Eos # (Auto) Baso # [...] signed by MD Jose Arriaga> 11/20/22 1030 [facility] Work Phone: Progress note Author Gina Poole [facility] November 20, 2022 2:12pm Note Date/Time November 20, 2022 2:12 pm [facility] [address] [place] [address] Hospitalist Progress Note Signed Patient: Kate Hagen MR#: [id number] : 1950 Acct:[id number] Age/Sex: 71 / F Adm Date: 3 Loc: 4 Room: [address] [place] [address] Type: ADM IN Attending Dr: Gina Poole [...] Insuln.Pen SUBCUT 11/19/23 11:59 Not Given TID.[facility] Protocol Magnesium Oxide 400 mg 11/19/22 09:00 [...] signed by Gina Poole DO> 11/20/22 1412 [facility] Work Phone: Progress note Author Colin Levy [facility] November 21, 2022 11:31am Note Date/Time November 21, 2022 11:[facility] [address] [place] [address] Cardiology Progress Note Signed Patient: Kate Hagen MR#: [id number] : 1950 Acct:[id number] Age/Sex: 71 / F Adm Date: 3 Loc: 4P Room: [address] [place] [address] Type: ADM IN Attending Dr: Gina Poole [...] % (Auto) 70.8 Lymph % (Auto) 18.9 Harney % (Auto) 7.3 Eos % (Auto) 2.7 Baso % (Auto) 0.3 Nucleat RBC Rel Count 0.1 Neut # (Auto) 4.1 Lymph # (Auto) 1.1 Harney # (Auto) 0.4 Eos # (Auto) 0.2 Baso # (Auto) 0.0 PHA Creatinine Clear Sodium Potassium Chloride Carbon Dioxide Anion Gap BUN Creatinine Est GFR (CKD-EPI) Glucose POC Glucose 123 135 Calcium 11/21/22 11/21/22 04:47 08:37 Corrected WBC Uncorrected WBC Count RBC Hgb Hct MCV MCH MCHC RDW Plt Count MPV Neut % (Auto) Lymph % (Auto) Harney % (Auto) Eos % (Auto) Baso % (Auto) Nucleat RBC Rel Count Neut # (Auto) Lymph # (Auto) Harney # (Auto) Eos # (Auto) Baso # [...] aggressive diuresis Documented By: Colin Levy MD, PLACIDO 3 1127 Signed By: <Electronically signed by MD PLACIDO Levy> 11/21/22 1131 [facility] Work Phone: Reason for referral (narrative)* Consultation (Routine) - Authorized Specialty Diagnoses / Procedures Referred By Contac t Referred To Contact Cardiology Diagnoses Paroxysmal atrial fibrillation (CMS/HCC) Procedures Follow Up In Cardiology Annika Kaba APRN-NEGATIVE NOTCHER [address] [facility] 2, Alli [address] [place] [id number] Referral ID Status Reason Start Date Expiration Date V isits Requested Visits Authorized [id number] Authorized 03/30/2023 03/29/2024 1 1 * CV Imaging (Routine) - Pending Review Specialty Diagnoses / Procedures Referred By Contac t Referred To Contact Cardiology Diagnoses Nonrheumatic aortic valve stenosis Pulmonary hypertension (CMS/HCC) Procedures Transthoracic Echo (TTE) Complete NE ECHO TRANSTHORC R-T 2D W/WO M-MODE REC F-UP/LMTD NE DOP ECHOCARD COLOR FLOW VELOCITY MAPPING NE DOP ECHOCARD PULSE WAVE W/SPECTRAL F-UP/LMTD STD Annika Kaba APRN-NEGATIVE NOTCHER [address] [facility] 2, [address] [address] Referral ID Status Reason Start Date Expiration Date Visits Requested Visits Authorized [id number] Pending Review Perform Procedure 3 03/29/2024 1 1 [facility] Work Phone: Reason for referral (narrative)* Consultation (Routine) - Authorized Specialty Diagnoses / Procedures Referred By Contac t Referred To Contact Cardiology Diagnoses Paroxysmal atrial fibrillation (CMS/HCC) Procedures Follow Up In Cardiology Annika Kaba HUMAN RESOURCE CONSULTANT-NEGATIVE NOTCHER [address] [facility] 2, Alli [address] [place] [address] Referral ID Status Reason Start Date Expiration Date V isits Requested Visits Authorized [id number] Authorized 07/26/2023 07/25/2024 1 1 [facility] Work Phone: Reason for referral (narrative)* Consultation (Routine) - Authorized Specialty Diagnoses / Procedures Referred By Contac t Referred To Contact Cardiology Diagnoses Paroxysmal atrial fibrillation (Multi) Procedures Follow Up In Cardiology Jose Arriaga MD [address] [facility] 2, [address] [address] Annika Kaba HUMAN RESOURCE CONSULTANT-NEGATIVE NOTCHER [address] [facility] 2, [address] [address] Referral ID Status Reason Start Date Expiration Date V isits Requested Visits Authorized [id number] Authorized 11/08/2023 11/07/2024 1 1 * Consultation (Routine) - Authorized Specialty Diagnoses / Procedures Referred By Contac t Referred To Contact Cardiology Diagnoses Paroxysmal atrial fibrillation (Multi) Procedures Follow Up In Cardiology Jose Arriaga MD [address] [facility] 2, [address] [address] Jose Canela DO [address] [facility] 2, [address] [address] Referral ID Status Reason Start Date Expiration Date V isits Requested Visits Authorized [id number] Authorized 11/08/2023 11/07/2024 1 1 [facility] Work Phone: Summary Purpose Family History [...] Unknown brother Unknown sister Unknown Advance Directives No Advanced Directives Records Found [...] Documents on File Type Date Recorded Patient Patient Navigator Expl anation Advance Directives and Living Will [...] Dentistry Diagnoses Edentulous Meng Leos DMD, MD [address] [place] [address] [place] [address] Referral ID Status Reason Start Date Expiration Date V isits Requested Visits Authorized [id number] Authorized 08/18/2023 02/14/2024 3 3 Scheduling Instructions Please call the Dental Clinic at [facility] at to schedule an appointment if one was not made for you today. Comments Please treat patient for current denture adjustment, and if possible new dentures. Patient had mandibular fracture in May 2023. Specialty Diagnoses / Procedures Referred By Jack lorenzo Referred To Contact Radiology Diagnoses Closed displaced intertrochanteric fracture of right femur, initial encounter ([facility]) Procedures XR FEMUR RIGHT MINIMUM 2 VIEWS Kayden Lee PA-C [address] [place] [address] [facility] [address] [place] [address] Referral ID Status Reason Start Date Expiration Date V isits Requested Visits Authorized [id number] Authorized 06/07/2023 06/06/2024 1 1 Specialty Diagnoses / Procedures Referred By Contac t Referred To Contact Radiology Diagnoses Closed displaced intertrochanteric fracture of right femur, initial encounter (HCC) Procedures XR HIP RIGHT W/ PELVIS MIN 2-3 VIEWS Kayden Lee PA-C [address] [place] [address] [facility] [address] [facility] [place] [id number] Referral ID Status Reason Start Date Expiration Date V isits Requested Visits Authorized [id number] Authorized 06/07/2023 06/06/2024 1 1 Specialty Diagnoses / Procedures Referred By Contac t Referred To Contact Cardiology Diagnoses Nonrheumatic aortic valve stenosis Pulmonary hypertension (CMS/HCC) Procedures Transthoracic Echo (TTE) Complete NE ECHO TRANSTHORC R-T 2D W/WO M-MODE REC F-UP/LMTD NE DOP ECHOCARD COLOR FLOW VELOCITY MAPPING NE DOP ECHOCARD PULSE WAVE W/SPECTRAL F-UP/LMTD STD Annika Kaba, HUMAN RESOURCE CONSULTANT-NEGATIVE NOTCHER [address] [place] [address], [address] [address] Referral ID Status Reason Start Date Expiration Date Visits Requested Visits Authorized [id number] Pending Review Perform Procedure 3 03/29/2024 1 1 Additional Source Comments INFORMATION SOURCE (unrecogn ized section and content) DATE CREATED AUTHOR 10/21/2017 [facility] DATE CREATED AUTHOR AUTHOR'S ORGANIZ ATION 10/06/2021 [facility] dical Specialist DATE CREATED AUTHOR AUTHOR'S ORGANIZ ATION 09/13/2022 [facility] DATE CREATED AUTHOR AUTHOR'S ORGANIZ ATION 11/02/2022 [facility] DATE CREATED AUTHOR AUTHOR'S ORGANIZ ATION 12/29/2022 [facility] DATE CREATED AUTHOR AUTHOR'S ORGANIZ ATION 12/30/2022 [employer] DATE CREATED AUTHOR AUTHOR'S ORGANIZ ATION 08/13/2023 [facility] DATE CREATED AUTHOR AUTHOR'S ORGANIZ ATION 09/10/2023 [facility] DATE CREATED AUTHOR AUTHOR'S ORGANIZ ATION 11/19/2023 [facility] DATE CREATED AUTHOR AUTHOR'S ORGANIZ ATION 12/06/2023 [facility] DATE CREATED AUTHOR AUTHOR'S ORGANIZ ATION 03/17/2024 [facility] DATE CREATED AUTHOR AUTHOR'S ORGANIZ ATION 06/03/2024 [facility] dical Specialists EPIC REASON FOR VISIT (unrecogniz ed section and content) Reason Comments Follow-up 4m Specialty Diagnoses / Procedures Referred By Jack t Referred To Contact Cardiology Diagnoses Nonrheumatic aortic valve stenosis Pulmonary hypertension (CMS/HCC) Procedures Transthoracic Echo (TTE) Complete NE ECHO TRANSTHORC R-T 2D W/WO M-MODE REC F-UP/LMTD NE DOP ECHOCARD COLOR FLOW VELOCITY MAPPING NE DOP ECHOCARD PULSE WAVE W/SPECTRAL F-UP/LMTD STD Annika Kaba, HUMAN RESOURCE CONSULTANT-NEGATIVE NOTCHER [address] [facility] 2, [address] [place] [address] Referral ID Status Reason Start Date Expiration Date Visits Requested Visits Authorized [id number] Pending Review Perform Procedure 3 03/29/2024 1 1 Reason Comments Care Coordination Transitional Care Management Reason Comments Post-op Follow-up Specialty Diagnoses / Procedures Referred By Jack lorenzo Referred To Contact Radiology Diagnoses Closed displaced intertrochanteric fracture of right femur, initial encounter ([facility] [facility] Procedures XR HIP RIGHT W/ PELVIS MIN 2-3 VIEWS Kayden Lee [place] [employer] [place] [address] S DIAGNOSTIC RADIOLOGY [address] [facility] [address] Referral ID Status Reason Start Date Expiration Date Visits Re quested Visits Authorized [id number] Closed 06/07/2023 06/06/2024 1 1 Reason Comments Follow-up 2 months Specialty Diagnoses / Procedures Referred By Jack t Referred To Contact Cardiology Diagnoses Paroxysmal atrial fibrillation (CMS/HCC) Procedures Follow Up In Cardiology Annika Kaba, HUMAN RESOURCE CONSULTANT-NEGATIVE NOTCHER [address] [facility] 2, [address] [place] [address] Referral ID Status Reason Start Date Expiration Date V isits Requested Visits Authorized [id number] Authorized 03/30/2023 03/29/2024 1 1 Reason Comments Joint Pain Specialty Diagnoses / Procedures Referred By Contac t Referred To Contact Radiology Diagnoses Closed displaced intertrochanteric fracture of right femur, initial encounter ([facility]) Procedures XR FEMUR RIGHT MINIMUM 2 VIEWS Kayden Lee PA-C [address] [place] [address] [facility] DIAGNOSTIC RADIOLOGY [address] [place] [address] [place] [address] Referral ID Status Reason Start Date Expiration Date Visits Re quested Visits Authorized [id number] Closed 09/06/2023 09/05/2024 1 1 Reason Comments Care Coordination Transitional Care Management Hospital follow-up Reason Comments Med Refill Reason Comments DM Foot Care Dm Nails Reason Comments Joint Pain Post-op Follow-up Specialty Diagnoses / Procedures Referred By Contac t Referred To Contact Radiology Diagnoses Closed displaced intertrochanteric fracture of right femur, initial encounter ([facility]) Procedures XR PELVIS SINGLE VIEW Kayden Lee PA-C [address] [place] [address] [facility] DIAGNOSTIC RADIOLOGY [address] [place] [address] [place] [address] Referral ID Status Reason Start Date Expiration Date Visits Re quested Visits Authorized [id number] Closed 07/05/2023 07/04/2024 1 1 Reason Onset Date Comments change qty of med 04/05/2024 Reason Comments Follow-up Pain med Diabetes Med Refill Hydrocodone-- [facility] Reason Comments Follow-up Per Pt to discuss po ssible aortic valve replacement. OK per Netta Reason Comments Diabetes Follow-up Controlled/pain med prolia injection Med Refill [place]-- [facility] Reason Comments Follow-up 6 month Specialty Diagnoses / Procedures Referred By Contac t Referred To Contact Cardiology Diagnoses Paroxysmal atrial fibrillation (Multi) Procedures Follow Up In Cardiology Jose Arriaga MD Sheldon, William S, [address] [facility] 2, [address] [place] [address] Phone: tel: fax: Referral ID Status Reason Start Date Expiration Date V isits Requested Visits Authorized [id number] Authorized 11/08/2023 11/07/2024 1 1 Reason Comments DM Foot Care Dm nail care Care Team (unrecognized sect ion and content) Team Status: Active Member Role Status Arlyn [...] Pearson MD Other Provider Active Start: Pedro 2023 End: November 11, 2023 Barbi Hernandez [...] 2023 Team Status: Inactive Member Role Status Arlyn Barber II MD Primary Care Provider Active Venkatesh Trammell DO Emergency Provider Active Gina Poole DO Admit Provider, Attending Provider Active Hilary Antunez RN Other Provider Active Melody Canela DO Other Provider Active Colin Levy MD Other Provider Active Jose Arriaga MD Other Provider Active Jeffry Hardy MD Other Provider Active Farhat Saleem MD Other Provider Active Annika Kaba APRN Other Provider Active Kellie Okeefe MD Other Provider Active Jack Cooley MD Other Provider Active Daniella Estrada MD Other Provider Active Sonia Urena , [facility]- Other Provider Active Tatiana Shafer MD Other Provider Active Team Status: Active Member Role Status Dates Barry Barber II MD Primary Care Provider Active Venkatesh Trammell , Emergency Provider Active Gina Poole , DO Admit Provider, Attending Provider Active Hub Bander Relationship Specialty Start Date End Date Barry Barber MD [address] [place] [address] PCP - General 12/28/22 Barry Barber MD [address] [place] [address] 12/28/22 Hub Bander Relationship Specialty Start Date End Date Barry Barber MD [address] [place] [address] PCP - General 12/28/22 Barry Barber MD [address] [place] [address] 12/28/22 Hub Bander Relationship Specialty Start Date End Date Barry Barber MD [address] [place] [address] PCP - General 12/28/22 Barry Barber MD [address] [place] [address] 12/28/22 Hub Bander Relationship Specialty Start Date End Date Barry Barber MD [address] [place] [address] PCP - ACO Reach 09/24/22 Barry Barber MD [address] [place] [address] PCP - General Internal Medicine 10/22/22Wednesday, NIKHIL Jeff [address] [place] [address] Licensed Practical Nurse Family Medicine 12/29/22 Becca Campos LSW Correction Officer [facility] Family [facility] 12/29/22 Hub Bander Relationship Specialty Start Date End Date Barry Barber MD [address] [place] [address] PCP - General 12/28/22 Barry Barber MD [address] [place] 12/28/22 Hub Bander Relationship Specialty Start Date End Date Colt Live DO [address] [facility] [place] [address] Physician Orthopaedic Surgery 07/03/23 Hub Bander Relationship Specialty Start Date End Date Colt Live DO [address] [facility] [place] [address] Physician Orthopaedic Surgery 07/03/23 Hub Bander Relationship Specialty Start Date End Date Colt Live DO [address] [facility] [place] [address] Physician Orthopaedic Surgery 07/03/23 Meng Leos DMD, MD [address] [place] [address] Physician Oral & Maxillofacial Surgery 09/04/23 Hub Bander Relationship Specialty Start Date End Date Colt Live DO [address] [place] [address] [place] [address] Physician Orthopaedic Surgery 07/03/23 Meng Leos DMD, MD [address] [place] [address] Physician Oral & Maxillofacial Surgery 09/04/23 Hub Bander Relationship Specialty Start Date End Date Colt Live DO [address] [place] [address] Physician Orthopaedic Surgery 07/03/23 Meng Leos DMD, MD [address] [place] [address] Physician Oral & Maxillofacial Surgery 09/04/23 Team Status: Inactive Member Role Status Dates Barry Barber II MD Primary Care Provider Active Start: December 09, 2023 End: December 09, 2023 Shalonda Pearson MD Attending Provider Active Star t: December 09, 2023 End: December 09, 2023 Hub Bander Relationship Specialty Start Date End Date Barry Barber MD [address] [place] [address] PCP - ACO Reach 09/24/22 Barry Barber MD [address] [place] [address] PCP - General Internal Medicine 10/22/22Wednesday, NIKHIL Jeff [address] [place] [address] Licensed Practical Nurse Family Medicine 12/29/22 Becca Campos, [facility] Correction Officer [employer] Family Medicine 12/29/22 Hub Bander Relationship Specialty Start Date End Date Barry Barber MD [address] [place] [address] PCP - ACO Reach 09/24/22 Barry Barber MD [address] [place] [address] PCP - General Internal Medicine 10/22/22WednesdayRandee LPN [address] [place] [address] Licensed Practical Nurse Family Medicine 12/29/22 Becca Campos [facility] Correction Officer [employer] Family [facility] 12/29/22 Hub Bander Relationship Specialty Start Date End Date Barry Barber MD [address] [place] [address] PCP - ACO Reach 09/24/22 Barry Barber MD [address] [place] [address] PCP - General Internal Medicine 10/22/22WednesdayRandee LPN [address] [place] [address] Licensed Practical Nurse Family Medicine 12/29/22 Becca Campos, [facility] Correction Officer [employer] Family Medicine 12/29/22 Hub Bander Relationship Specialty Start Date End Date Barry Barber MD [address] [place] [address] PCP - ACO Reach 09/24/22 Barry Barber MD [address] [place] [address] PCP - General Internal Medicine 10/22/22Wednesday, Randee, ASSISTANT PRODUCT MANAGER [address] [place] [address] Licensed Practical Nurse Family Medicine 12/29/22 Becca Campos LSW Correction Officer [facility] Family [facility] 12/29/22 Hub Bander Relationship Specialty Start Date End Date Barry Barber MD [address] [place] [address] PCP - ACO Reach 09/24/22 Barry Barber MD [address] [place] [address] PCP - General Internal Medicine 10/22/22Wednesday, Randee, ASSISTANT PRODUCT MANAGER [address] [place] [address] Licensed Practical Nurse Family Medicine 12/29/22 Becca Campos LSW Correction Officer [facility] Family [facility] 12/29/22 Hub Bander Relationship Specialty Start Date End Date Barry Barber MD [address] [place] [address] PCP - ACO Reach 09/24/22 Barry Barber MD [address] [place] [address] PCP - General Internal Medicine 10/22/22Wednesday, Randee, ASSISTANT PRODUCT MANAGER [address] [place] [address] Licensed Practical Nurse Family Medicine 12/29/22 Becca Campos LSW Correction Officer [facility] Family [facility] 12/29/22 Hub Bander Relationship Specialty Start Date End Date Barry Barber MD [address] [place] [address] PCP - ACO Reach 09/24/22 Barry Barber MD [address] [place] [address] PCP - General Internal Medicine 10/22/22Wednesday, Randee, ASSISTANT PRODUCT MANAGER [address] [place] [address] Licensed Practical Nurse Family Medicine 12/29/22 Becca Campos SQL BI DEVELOPER Correction Officer [facility] 12/29/22 Hub Bander Relationship Specialty Start Date End Date Barry Barber MD [address] [place] [address] PCP - General 12/28/22 Barry Barber MD [address] [place] [address] 12/28/22 Hub Bander Relationship Specialty Start Date End Date Barry Barber MD [address] [place] [address] PCP - ACO Reach 09/24/22 Barry Barber MD [address] [place] [address] PCP - General Internal Medicine 10/22/22Wednesday, Randee, ASSISTANT PRODUCT MANAGER [address] [place] [address] Licensed Practical Nurse Family Medicine 12/29/22 Becca Campos [facility] Correction Officer [employer] Family Medicine 12/29/22 Hub Bander Relationship Specialty Start Date End Date Barry Barber MD [address] [place] [address] PCP - ACO Reach 09/24/22 Barry Barber MD [address] [place] [address] PCP - General Internal Medicine 10/22/22Wednesday, LUZMA JeffN [address] [place] [address] Licensed Practical Nurse Family Medicine 12/29/22 Becca Campos, [facility] Correction Officer [employer] Family Medicine 12/29/22 Hub Bander Relationship Specialty Start Date End Date Barry Barber MD [address] [place] [address] PCP - ACO Reach 09/24/22 Barry Barber MD [address] [place] [address] PCP - General Internal Medicine 10/22/22Wednesday, LUZMA JeffN [address] [place] [address] Licensed Practical Nurse Family Medicine 12/29/22 Becca Campos, [facility] Correction Officer [employer] Family Medicine 12/29/22 Hub Bander Relationship Specialty Start Date End Date Barry Barber MD [address] [place] [address] PCP - General 12/28/22 Barry Barber MD [address] [place] [address] 12/28/22 Hub Bander Relationship Specialty Start Date End Date Barry Barber MD [address] [place] [address] PCP - ACO Reach 09/24/22 Barry Barber MD [address] [place] [address] PCP - General Internal Medicine 10/22/22Wednesday, NIKHIL Jeff [address] [place] [address] Licensed Practical Nurse Family Medicine 12/29/22 Becca Campos LSW Correction Officer [facility] Family [facility] 12/29/22 Goals (unrecognized section and [...] BE BASED ON THE PRIMARY CLINICAL RECORDS. [employer] [facility]. provides no warranty or guarantee of the accuracy or completeness of information in this document.
[2024-06-05 11:19] LABS: Bilirubin Urine NEGATIVE (NEGATIVE); Blood Urine SMALL (NEGATIVE); Clarity Urine SL CLOUDY (CLEAR); Color Urine LT. YELLOW (YELLOW); Glucose Urine UA NEGATIVE (NEGATIVE); Ketones Urine NEGATIVE (NEGATIVE); Leukocyte Esterase Urine LARGE (NEGATIVE); Nitrite Urine NEGATIVE (NEGATIVE); Protein Urine 30 mg/dL (NEG/TRACE); Urobilinogen Urine 0.2 EU/dL (0.2-1.0); pH Urine 6.5 (5.0-9.0)
[2024-06-05 11:39] LABS: Creatinine Urine Random 50.27 mg/dL (20.00-300.00); Total Protein Urine Random 50.1 mg/dL (<=11.9)
[2024-06-05 12:49] LABS: Albumin Level 2.2 g/dL (3.4-5.0); Anion Gap 9.7; BUN Creatinine Ratio 10.6; Calcium 7.1 mg/dL (8.5-10.1); Chloride 103 mmol/L (98-107); Estimated GFR (African America 21 (>=60 mL/min/1.73m^2); Estimated GFR (Non-African Ame 17 (>=60 mL/min/1.73m^2); Glucose 96 mg/dL (74-106); Phosphorus 4.5 mg/dL (2.6-4.7); Potassium 4.7 mmol/L (3.5-5.1); Sodium 139 mmol/L (136-145)
[2024-06-06 12:28] LABS: PTH, Intact 372 pg/mL (15-65)
== END 2024-06-05 11:10 | disposition home or self-care (01) ==
LOC: LAB 11:09
PROVIDERS: PCP Internal Medicine; Visit Provider Internal Medicine Nephrology
DX: N18.9 Chronic kidney disease, unspecified (principal); N18.31 Chronic kidney disease, stage 3a; N25.81 Secondary hyperparathyroidism of renal origin
CPT/HCPCS: 36415; 80069; 81003; 82570; 83970; 84100; 84156

== ENCOUNTER 2024-08-28 11:43 | Outpatient (OUT) | payer MEDICARE, MEDICAID, SELFPAY ==
[2024-08-28 12:46] LABS: Albumin Level 1.9 g/dL (3.4-5.0); Anion Gap 11.3; BUN Creatinine Ratio 13.1; Calcium 8.5 mg/dL (8.5-10.1); Carbon Dioxide 32.6 mmol/L (21.0-32.0); Chloride 104 mmol/L (98-107); Estimated GFR (African America 20 (>=60 mL/min/1.73m^2); Estimated GFR (Non-African Ame 17 (>=60 mL/min/1.73m^2); Glucose 137 mg/dL (74-106); Phosphorus 3.9 mg/dL (2.6-4.7); Potassium 4.9 mmol/L (3.5-5.1); Sodium 143 mmol/L (136-145)
== END 2024-08-28 11:44 | disposition home or self-care (01) ==
LOC: LAB 11:45
PROVIDERS: PCP Internal Medicine; Visit Provider Internal Medicine Nephrology
DX: N18.9 Chronic kidney disease, unspecified (principal)
CPT/HCPCS: 36415; 80069

== ENCOUNTER 2024-10-12 14:13 | Outpatient (OUT) | payer MEDICARE, MEDICAID, SELFPAY ==
--- OUTSIDE RECORDS SUMMARY | 2023-06-02 09:30 | XMS_ITS ---
Author Organization [facility] Address [address] [place] [address] [place] [address] Care Team Providers Care Computer Systems Support Specialist Name Role Phone Austin Rivas Primary Care Provider UnavailAlexandro Gan Unavailable [phone] Encounters Encounter Location Date Provider Diagnosis [address] [address] 06/02/2023 Alexandro Gracia Plan Of Treatment No Information Progress Notes * Kate MOORE MDOB: 9 (73 yo F)Acc No.[id number]:06/02/2023 Patient: Jael RAMONNAVDEEPJaelKate Provider: Chris Gracia DPM :1950 A ge:72 Y S ex:Female Date:06/02/2023 [place] Pcp:Austin Rivas Subjective: * Chief Complaints: * * Medical History: Objective: * Vitals: Assessment: Plan: * Treatment: * Images: * Electronic signature of [place] in DEVI Gracia on 10/12/2024 at 02:22 PM EDT Sign off status: Pending * Provider: Chris Gracia DPM Date: 0 06/02/2023 Generated for Holly palumbo/Peyton/eTbernard on: 0 10/12/2024 02:22 PM EDT
--- OUTSIDE RECORDS SUMMARY | 2023-11-01 17:23 | XMS_ITS ---
Author Organization [facility] in [place] Address [address] [place] [address] Care Team Providers Care Contact Lens Polisher Name Role Phone Shawn Barber MD Primary Care Provider Unavailab Suresh Chaudhari Unavailable [phone] REASON FOR VISIT urine- not our patient-number disconnected Encounters Encounter Location Date Provider Diagnosis [facility] [address] [place] [address] 11/01/2023 Suresh Uriarte Plan Of Treatment No Information Progress Notes * Kate MOORE MDOB: (72 yo F)Acc No.[id number]:11/01/2023 Patient: Jael RAMONKate KING :1950 A ge:72 Y S ex:Female Address:[address] [place] [address] [address], [place] [address] * true * Date: Generated for Holly palumbo/Peyton/eTransmitting on: 0 10/12/2024 02:21 PM EDT
--- OUTSIDE RECORDS SUMMARY | 2024-10-12 14:18 | XMS_ITS ---
Author Organization [facility] Address [address] [place] [address] Care Team Providers Care Switchboard Receptionist Name Role Phone Shawn Barber MD Unavailable [phone] Shawn Barber MD Primary Care Provider [phone] Kaylen Moore LPN Unavailable Unavailable Chronic Care Management (CCM) Status:Enrolled (Active) Start date:12/29/2022 Enrollment date:12/29/2022 Enrollment reason:Identified as high-risk Overview 04/22/23, 2:54 PM - WednesdayNIKHIL- Patient gives verbal consent to be enrolled in CCM Program and understands there could be a bill for this service. Addresses patients in need of care management services. <December 29, 2022, 11:24 AM - NAY Ponce> Pt was on CCM prior to Epic transition, appears program was never added to pt chart. Pt is attributed and will not be responsible for CCM charges. Case Team Name Relationship Phone Kaylen Moore LPN(Responsible Staff) Continued Care and Services Coordination
--- OUTSIDE RECORDS SUMMARY | 2024-10-12 14:19 | XMS_ITS | Encounter Summary ---
Author Organization [facility] Address [address] [facility] [place] [address] Care Team Providers Care Film Splicer Name Role Phone Shawn Barber MD Unavailable [phone] Shawn Barber MD Primary Care Provider Wednesday, Randee SEGALN Unavailable [phone] Becca Campos CITRIX ARCHITECT Unavailable [phone] Hilary Frank RN Unavailable [phone] Kaylen Moore SANDWICH PEDDLER Unavailable Unavailable Encounter Details Date Type Department Care Team (Late st Contact Info) Description 11/16/2023 Abstract [facility] [address] [facility] 110 [place] [id number] Shawn Barber MD 112 [facility] 110 [place] [address] Social History Tobacco Use Types Packs/Day Years Used Date Smoking Tobacco: Every Day Cigarettes 1 50 Smokeless Tobacco: Never Alcohol Use Standard Drinks/Week Comments Not Currently 2 (1 standard drink = 0.6 oz pure alcohol) Caffeine intake: 1-2 cups per day, 2-3 cups a week Humiliation, Afraid, Rape, and Kick questionnair e Answer Date Recorded Within the last year, have y ou been afraid of your partner or ex-partner? No 01/29/2023 Within the last year, have y ou been humiliated or emotionally abused in other ways by your partner or ex-partner? No Within the last year, have y ou been kicked, hit, slapped, or otherwise physically hurt by your partner or ex-partner? No 01/29/2023 Within the last year, have y ou been raped or forced to have any kind of sexual activity by your partner or ex-partner? No 01/29/2023 Social Connection and Isolation Panel [NHANES] A nswer Date Recorded In a typical week, how many times do you talk on the phone with family, friends, or neighbors? Once a week 01/29/2023 How often do you get togethe r with friends or relatives? Three times a week 01/29/2023 How often do you attend chur ch or zoroastrianism services? Never 01/29/2023 Do you belong to any clubs o r organizations such as orthodoxy groups, unions, fraternal or athletic groups, or school groups? No 01/29/2023 How often do you attend meet ings of the clubs or organizations you belong to? Never 01/29/2023 Are you , , di vorced, , never , or living with a partner? 01/29/2023 AUDIT-C Answer Date Recorded Q1: How often do you have a drink containing alcohol? Never 01/29/2023 Q2: How many drinks containi ng alcohol do you have on a typical day when you are drinking? Patient does not drink Q3: How often do you have si x or more drinks on one occasion? Never 01/29/2023 Overall Financial Resource Strain (CARDIA) Answe r Date Recorded How hard is it for you to pa y for the very basics like food, housing, medical care, and heating? Somewhat hard 01/29/2023 PHQ-2 Answer Date Recorded Patient Health Questionnaire-2 Score 1 11/25/2022 [facility] of Occupat ional Health - Occupational Stress Questionnaire Answer Date Recorded Do you feel stress - tense, restless, nervous, or anxious, or unable to sleep at night because your mind is troubled all the time - these days? To some extent 01/29/2023 Exercise Vital Sign Answer Date Recorde d On average, how many days pe r week do you engage in moderate to strenuous exercise (like a brisk walk)? 0 days 01/29/2023 On average, how many minutes do you engage in exercise at this level? 0 min 01/29/2023 Hunger Vital Sign Answer Date Recorded Within the past 12 months, y ou worried that your food would run out before you got the money to buy more. Never true 01/30/20 23 Within the past 12 months, t he food you bought just didn't last and you didn't have money to get more. Never true 01/29/2023 PRAPARE - Transportation Answer Date Re corded In the past 12 months, has l ack of transportation kept you from medical appointments or from getting medications? No 01/02 In the past 12 months, has l ack of transportation kept you from meetings, work, or from getting things needed for daily living? No 01/29/2023 Housing Stability Vital Sign Answer Mendez e Recorded In the last 12 months, was t here a time when you were not able to pay the mortgage or rent on time? No 01/29/2023 In the last 12 months, how many places have you lived? 1 01/29/2023 In the last 12 months, was t here a time when you did not have a steady place to sleep or slept in a chcf (including now)? No 01/29/2023 Housing Stability Vital Sign Answer Mendez e Recorded In the last 12 months, was t here a time when you were not able to pay the mortgage or rent on time? No 01/29/2023 Number of Times Moved in the Last Year Not on fi le 01/29/2023 Homeless in the Last Year Not on file 2022 Comments Unknown Sex and Gender Information Value Date Recorded Sex Assigned at Not on file Legal Sex Female 6:46 PM EDT Gender Identity Not on file Sexual Orientation Not on file documented as of this encounter Plan of Treatment Upcoming Encounters Date Type Department Care Team (Late st Contact Info) Description 10/23/2024 2:00 PM EDT Office Visit [facility] 112 [facility] 110 [place] [address] Shawn Barber MD 112 [facility] 110 [place] [address] 10/26/2024 2:50 PM EDT Office Visit [facility] [address] [place] [address] Colt Mendieta, DPM 3[address] [facility] 5 [place] [address] documented as of this encounter Visit Diagnoses Not on filedocumented in this encounter Care Teams Film Splicer Relationship Specialty Start Date End Date Shawn Barber MD [address] [place] [address] PCP - ACO Reach 09/24/22 Shawn Barber MD [address] [place] [address] PCP - General Internal Medicine 10/22/22Wednesday, NIKHIL Jeff [address] [place] [address] Licensed Practical Nurse Family Medicine 12/29/22 06/09/24 Becca Campos LSW Cutter Operator Tile Family Medicine 12/29/22 08/24/24 Hilary Frank, RN Licensed Practical Nurse Family Medicine 06/09/24 07/21/24 Kaylen Moore LPN 07/21/24 documented as of this encounter
--- OUTSIDE RECORDS SUMMARY | 2024-10-12 14:19 | XMS_ITS | Encounter Summary ---
Author Organization [facility] Address [address] [facility] [place] [address] Care Team Providers Care Telecommunications Specialist Name Role Phone Shawn Barber MD Unavailable [phone] Shawn Barber MD Primary Care Provider Wednesday, Randee SEGALN Unavailable [phone] Becca Campos STATISTICAL TYPIST Unavailable [phone] Hilary Frank RN Unavailable [phone] Kaylen Moore SENIOR PLANNER Unavailable Unavailable Encounter Details Date Type Department Care Team (Late st Contact Info) Description 11/15/2023 Abstract [facility] 112 [facility] 110 [place] [id number] Shawn Barber MD 112 [facility] 110 [place] [address] Social History Tobacco Use Types [...] often do you attend chur ch or jew services? Never 01/29/2023 Do you belong to any clubs o r organizations such as mormon groups, unions, fraternal or athletic groups, or [...] Recorded Patient Health Questionnaire-2 Score 1 11/25/2022 [facility] [place] of Occupat ional Health - Occupational Stress [...] place to sleep or slept in a residential (including now)? No 01/29/2023 Housing Stability Vital [...] EDT Office Visit [facility] 112 [facility] 110 [place] [address] Shawn Barber MD 112 [facility] 110 [place] [address] 10/26/2024 2:50 PM EDT Office Visit [facility] [address] [place] [address] Colt Mendieta, DPM 3006 [facility] 5 [place] [address] documented as of this encounter Visit Diagnoses Not on filedocumented in this encounter Care Teams Telecommunications Specialist Relationship Specialty Start Date End Date Shawn Barber MD [address] [place] [address] PCP - ACO Reach 09/24/22 Shawn Barber MD [address] [place] [address] PCP - General Internal Medicine 10/22/22Wednesday, NIKHIL Jeff [address] [place] [address] Licensed Practical Nurse Family Medicine 12/29/22 06/09/24 Becca Campos LSW Karate Black Belt Family Medicine 12/29/22 08/24/24 Hilary Frank, RN Licensed Practical Nurse Family Medicine 06/09/24 07/21/24 Kaylen Moore LPN 07/21/24 documented as of this encounter
--- OUTSIDE RECORDS SUMMARY | 2024-10-12 14:20 | XMS_ITS | Encounter Summary ---
Author Organization [facility] Address [address] [facility] [address] Care Team Providers Care Manager English Name Role Phone Shawn Barber MD Unavailable [phone] Shawn Barber MD Primary Care Provider [phone] Wednesday, Randee TEJEDA Unavailable [phone] Becca Campos SENIOR ELECTRICAL ENGINEER Unavailable [phone] Hilary Frank RN Unavailable [phone] Kaylen Moore STATION REPAIRER Unavailable Unavailable Encounter Details Date Type Department Care Team (Late st Contact Info) Description 01/13/2024 Abstract [facility] [address] [facility] 110 [place] [id number] Shawn Barber MD 112 [facility] 110 [place] [address] Social History Tobacco Use Types Packs/Day Years Used Date Smoking Tobacco: Every Day Cigarettes 1 50 Smokeless Tobacco: Never Alcohol Use Standard Drinks/Week Comments Not Currently 2 (1 standard drink = 0.6 oz pure alcohol) Caffeine intake: 1-2 cups per day, 2-3 cups a week B1300 Health Literacy Answer Date Recor ded How often do you need to hav e someone help you when you read instructions, pamphlets, or other written material from your doctor or pharmacy? Rarely 12/06/2023 Humiliation, Afraid, Rape, and Kick questionnair e Answer Date Recorded Within the last year, have y ou been afraid of your partner or ex-partner? No 12/06/2023 Within the last year, have y ou been humiliated or emotionally abused in other ways by your partner or ex-partner? No Within the last year, have y ou been kicked, hit, slapped, or otherwise physically hurt by your partner or ex-partner? No 12/06/2023 Within the last year, have y ou been raped or forced to have any kind of sexual activity by your partner or ex-partner? No 12/06/2023 Social Connection and Isolation Panel [NHANES] A nswer Date Recorded In a typical week, how many times do you talk on the phone with family, friends, or neighbors? Once a week 12/06/2023 How often do you get togethe r with friends or relatives? Three times a week 12/06/2023 How often do you attend chur ch or moravian services? Never 12/06/2023 Do you belong to any clubs o r organizations such as tenriism groups, unions, fraternal or athletic groups, or school groups? No 12/06/2023 How often do you attend meet ings of the clubs or organizations you belong to? Never 12/06/2023 Are you , , di vorced, , never , or living with a partner? 12/06/2023 AUDIT-C Answer Date Recorded Q1: How often do you have a drink containing alcohol? Never 12/06/2023 Q2: How many drinks containi ng alcohol do you have on a typical day when you are drinking? Patient does not drink Q3: How often do you have si x or more drinks on one occasion? Never 12/06/2023 Overall Financial Resource Strain (CARDIA) Answe r Date Recorded How hard is it for you to pa y for the very basics like food, housing, medical care, and heating? Somewhat hard 12/06/2023 PHQ-2 Answer Date Recorded Patient Health Questionnaire-2 Score 1 11/25/2022 [facility] - Occupational Stress Questionnaire Answer Date Recorded Do you feel stress - tense, restless, nervous, or anxious, or unable to sleep at night because your mind is troubled all the time - these days? To some extent 12/06/2023 Exercise Vital Sign Answer Date Recorde d On average, how many days pe r week do you engage in moderate to strenuous exercise (like a brisk walk)? 7 days 12/06/2023 On average, how many minutes do you engage in exercise at this level? 10 min 12/06/2023 Hunger Vital Sign Answer Date Recorded Within the past 12 months, y ou worried that your food would run out before you got the money to buy more. Never true 12/06/19 24 Within the past 12 months, t he food you bought just didn't last and you didn't have money to get more. Never true 12/06/2023 PRAPARE - Transportation Answer Date Re corded In the past 12 months, has l ack of transportation kept you from medical appointments or from getting medications? No 09/2023 In the past 12 months, has l ack of transportation kept you from meetings, work, or from getting things needed for daily living? No 12/06/2023 Housing Stability Vital Sign Answer Mendez e [...] place to sleep or slept in a intermediate (including now)? No 01/29/2023 Housing Stability Vital Sign Answer Mendez e Recorded In the last 12 months, was t here a time when you were not able to pay the mortgage or rent on time? No 12/06/2023 In the past 12 months, how m any times have you moved where you were living? 0 12/06/2023 At any time in the past 12 m [facility], were you homeless or living in a intermediate (including now)? No 12/06/2023 Comments Unknown Sex and Gender Information Value Date Recorded Sex Assigned at Not on file Legal Sex Female 6:46 PM EDT Gender Identity Not on file Sexual Orientation Not on file documented as of this encounter Plan of Treatment Upcoming Encounters Date Type Department Care Team (Late st Contact Info) Description 10/23/2024 2:00 PM EDT Office Visit [facility] [address] [place] [address] Shawn Barber MD [address] [place] [address] 10/26/2024 2:50 PM EDT Office Visit [facility] [address] [place] [address] Colt Mendieta, DPM [address] [facility] 5 [place] [address] documented as of this encounter Visit Diagnoses Not on filedocumented in this encounter Care Teams Manager English Relationship Specialty Start Date End Date Shawn Barber MD [address] [place] [address] PCP - ACO Reach 09/24/22 Shawn Barber MD [address] [place] [address] PCP - General Internal Medicine 10/22/22WednesdayRandee LPN [address] [place] [address] Licensed Practical Nurse Family Medicine 12/29/22 06/09/24 Becca Campos LSW Developer Architect Family Medicine 12/29/22 08/24/24 Hilary Frank, RN Licensed Practical Nurse Family Medicine 06/09/24 07/21/24 Kaylen Moore LPN 07/21/24 documented as of this encounter
--- OUTSIDE RECORDS SUMMARY | 2024-10-12 14:20 | XMS_ITS | Encounter Summary ---
Author Organization [facility] Address [address] [facility] [place] [address] Care Team Providers Care Transcribing Machine Operator Name Role Phone Shawn Barber MD Unavailable [phone] Shawn Barber MD Primary Care Provider Wednesday, Randee SEGALN Unavailable [phone] Becca Campos SODA TESTER Unavailable [phone] Hilary Frank RN Unavailable [phone] Kaylen Moore CARPET JACK Unavailable Unavailable Encounter Details Date Type Department Care Team (Late st Contact Info) Description 11/15/2023 Abstract [facility] [address] [facility] 110 [place] [id number] Shawn Barber MD 112 [facility] 110 [place] [address] Social History Tobacco Use Types [...] often do you attend chur ch or faith services? Never 01/29/2023 Do you belong to any clubs o r organizations such as cheondoism groups, unions, fraternal or athletic groups, or [...] Recorded Patient Health Questionnaire-2 Score 1 11/25/2022 [facility] [place] of Occupat ional Health - Occupational Stress [...] place to sleep or slept in a longterm (including now)? No 01/29/2023 Housing Stability Vital [...] EDT Office Visit [facility] 112 [facility] 110 [place] [address] Shawn Barber MD 112 [facility] 110 [place] [address] 10/26/2024 2:50 PM EDT Office Visit [facility] [address] [place] [address] Colt Mendieta, DPM 3006 [facility] 5 [place] [address] documented as of this encounter Visit Diagnoses Not on filedocumented in this encounter Care Teams Transcribing Machine Operator Relationship Specialty Start Date End Date Shawn Barber MD [address] [place] [address] PCP - ACO Reach 09/24/22 Shawn Barber MD [address] [place] [address] PCP - General Internal Medicine 10/22/22Wednesday, NIKHIL Jeff [address] [place] [address] Licensed Practical Nurse Family Medicine 12/29/22 06/09/24 Bceca Campos LSW Search Engineer Family Medicine 12/29/22 08/24/24 Hilary Frank, RN Licensed Practical Nurse Family Medicine 06/09/24 07/21/24 Kaylen Moore LPN 07/21/24 documented as of this encounter
--- OUTSIDE RECORDS SUMMARY | 2024-10-12 14:20 | XMS_ITS | Encounter Summary ---
Author Organization [facility] Address [address] [facility] [place] [address] Care Team Providers Care Revolving Inventory Clerk Name Role Phone Shawn Barber MD Unavailable [phone] Shawn Barber MD Primary Care Provider [phone] Wednesday, Randee TEJEDA Unavailable [phone] Becca Campos POSTAL CARRIER Unavailable [phone] Hilary Frank RN Unavailable [phone] Kaylen Moore BRAIN WAVE TECHNICIAN Unavailable Unavailable Encounter Details Date Type Department Care Team (Late st Contact Info) Description 11/24/2022 Abstract [facility] [address] [facility] 110 [place] [id number] Shawn Barber MD [address] [facility] 110 [place] [address] Social History Tobacco Use Types Packs/Day Years Used Date Smoking Tobacco: Every Day Cigarettes Smokeless Tobacco: Never Alcohol Use Standard Drinks/Week Comments Not Currently 0 (1 standard drink = 0.6 oz pur e alcohol) PHQ-2 Answer Date Recorded Patient Health Questionnaire-2 Score 1 11/25/2022 Comments Unknown Sex and Gender Information Value Date Recorded Sex Assigned at Not on file Legal Sex Female 6:46 PM EDT Gender Identity Not on file Sexual Orientation Not on file documented as of this encounter Functional Status * Over the past 2 weeks, how often have you been bothered by any of the following problems? Question Answer Date of Assessment Author Little interest or pleasure in doing things Not at all 11/25/2022 7:23 AM EDT Hilary Kendall MA Feeling down, depressed, or hopeless Several days 11/25/2022 7:23 AM EDT Hilary Kendall MA Patient Health Questionnaire-2 Score 1 11/25/2022 7:23 AM EDT Hilary Kendall MA documented as of this encounter Plan of Treatment Upcoming Encounters Date Type Department Care Team (Late st Contact Info) Description 10/23/2024 2:00 PM EDT Office Visit [facility] [address] [place] [address] Shawn Barber MD [address] [place] [address] 10/26/2024 2:50 PM EDT Office Visit [facility] [address] [place] [address] Colt Mendieta DPM [address] [facility] 5 [place] [address] documented as of this encounter Visit Diagnoses Not on filedocumented in this encounter Care Teams Revolving Inventory Clerk Relationship Specialty Start Date End Date Shawn Barber MD [address] [place] [address] PCP - ACO Reach 09/24/22 Shawn Barber MD [address] [place] [address] PCP - General Internal Medicine 10/22/22Wednesday, NIKHIL eJff [address] [place] [address] Licensed Practical Nurse Family Medicine 12/29/22 06/09/24 Becca Campos LSW Baton Teacher Family Medicine 12/29/22 08/24/24 Hilary Frank, RN Licensed Practical Nurse Family Medicine 06/09/24 07/21/24 Kaylen Moore LPN 07/21/24 documented as of this encounter
--- OUTSIDE RECORDS SUMMARY | 2024-10-12 14:20 | XMS_ITS | Encounter Summary ---
Author Organization [facility] Address [address] [facility] [place] [address] Care Team Providers Care Fagot Heater Helper Name Role Phone Shawn Barber MD Unavailable [phone] Shawn Barber MD Primary Care Provider [phone] Wednesday, Randee SEGALN Unavailable [phone] Becca Campos LIFESTYLE COORDINATOR Unavailable [phone] Hilary Frank RN Unavailable [phone] Kaylen Moore FLAT DRIER Unavailable Unavailable Encounter Details Date Type Department Care Team (Late Contact Info) Description 12/02/2022 Abstract [facility] [address] [facility] 110 [place] [phone] Shawn Barber MD 112 [facility] 110 [place] [address] Social History Tobacco Use Types [...] Encounters Date Type Department Care Team (Late Contact Info) Description 10/23/2024 2:00 PM EDT Office Visit [facility] [address] [place] [address] Shawn Barber MD [address] [place] [address] 10/26/2024 2:50 PM EDT Office Visit [facility] [address] [place] [address] Colt Mendieta, DPChris [address] [facility] 5 [place] [address] documented as of this encounter Visit Diagnoses Not on filedocumented in this encounter Care Teams Fagot Heater Helper Relationship Specialty Start Date End Date Shawn Barber MD [address] [place] [address] PCP - ACO Reach 09/24/22 Shawn Barber MD [address] [place] [address] PCP - General Internal Medicine 10/22/22WednesdayRandee LPN [address] [place] [address] Licensed Practical Nurse Family Medicine 12/29/22 06/09/24 Becca Campos LSW Sales Consultant Family Medicine 12/29/22 08/24/24 Hilary Frank, RN Licensed Practical Nurse Family Medicine 06/09/24 07/21/24 Kaylen Moore LPN 07/21/24 documented as of this encounter
--- OUTSIDE RECORDS SUMMARY | 2024-10-12 14:20 | XMS_ITS | Encounter Summary ---
Author Organization [facility] Address [address] [facility] [place] [address] Care Team Providers Care Special Weapons And Tactics Officer Name Role Phone Shawn Barber MD Unavailable [phone] Shawn Barber MD Primary Care Provider [phone] Wednesday, Randee TEJEDA Unavailable [phone] Becca Campos SECURITY CONTROLS ASSESSOR Unavailable [phone] Hilary Frank RN Unavailable [phone] Kaylen Moore GEAR REPAIRER Unavailable Unavailable Encounter Details Date Type Department Care Team (Late st Contact Info) Description 01/12/2024 Abstract [facility] [address] [facility] 110 [place] [id number] Shawn Barber MD 112 [facility] 110 [place] [address] Social History Tobacco Use Types [...] often do you attend chur ch or hoahaoism services? Never 12/06/2023 Do you belong to any clubs o r organizations such as hoahaoism groups, unions, fraternal or athletic groups, or [...] Recorded Patient Health Questionnaire-2 Score 1 11/25/2022 [facility] - Occupational Stress Questionnaire [...] place to sleep or slept in a [facility] (including now)? No 01/29/2023 Housing Stability Vital Sign Answer Mendez e Recorded In the last 12 months, was t here a time when you were not able to pay the mortgage or rent on time? No 12/06/2023 In the past 12 months, how m any times have you moved where you were living? 0 12/06/2023 At any time in the past 12 m [facility], were you homeless or living in a [facility]p (including now)? No 12/06/2023 Comments Unknown Sex [...] [address] [place] [address] Shawn Barber MD [address] [place] [address] 10/26/2024 2:50 PM EDT Office Visit [facility] [address] [place] [address] Colt Mendieta, DPM [address]006 [facility] 5 [place] [address] documented as of this encounter Visit Diagnoses Not on filedocumented in this encounter Care Teams Special Weapons And Tactics Officer Relationship Specialty Start Date End Date Shawn Barber MD [address] [place] [address] PCP - ACO Reach 09/24/22 Shawn Barber MD [address] [place] [address] PCP - General Internal Medicine 10/22/22WednesdayRandee LPN [address] [place] [address] Licensed Practical Nurse Family Medicine 12/29/22 06/09/24 Becca Campos LSW Crochet Machine Operator Family Medicine 12/29/22 08/24/24 Hilary Frank, RN Licensed Practical Nurse Family Medicine 06/09/24 07/21/24 Kaylen Moore LPN 07/21/24 documented as of this encounter
--- OUTSIDE RECORDS SUMMARY | 2024-10-12 14:20 | XMS_ITS | Encounter Summary ---
Author Organization [facility] Address [address] [facility] [place] [address] Care Team Providers Care Captain Fishing Vessel Name Role Phone Shawn Barber MD Unavailable Shawn Barber MD Primary Care Provider Wednesday, Randee SEGALN Unavailable [phone] Becca Campos INSURANCE COMPLIANCE ANALYST Unavailable [phone] Hilary Frank RN Unavailable [phone] Kaylen Moore POT PUSHER Unavailable Unavailable Encounter Details Date Type Department Care Team (Late st Contact Info) Description 11/16/2023 Abstract [facility] [address] [facility] 110 [place] [phone] Shawn Barber MD 112 [facility] 110 [place] [address] Social History Tobacco Use Types [...] often do you attend chur ch or rastafari services? Never 01/29/2023 Do you belong to any clubs o r organizations such as yarsanism groups, unions, fraternal or athletic groups, or [...] Recorded Patient Health Questionnaire-2 Score 1 11/25/2022 [facility] of Occupat ional Health - Occupational Stress [...] place to sleep or slept in a alf (including now)? No 01/29/2023 Housing Stability Vital [...] EDT Office Visit [facility] 112 [facility] 110 [place] [address] Shawn Barber MD 112 [facility] 110 [place] [address] 10/26/2024 2:50 PM EDT Office Visit [facility] [address] [place] [address] Colt Mendieta, DPM 3006 [facility] 5 [place] [address] documented as of this encounter Visit Diagnoses Not on filedocumented in this encounter Care Teams Captain Fishing Vessel Relationship Specialty Start Date End Date Shawn Barber MD [address] [place] [address] PCP - ACO Reach 09/24/22 Shawn Barber MD [address] [place] [address] PCP - General Internal Medicine 10/22/22Wednesday, NIKHIL Jeff [address] [place] [address] Licensed Practical Nurse Family Medicine 12/29/22 06/09/24 Becca Campos LSW Phone Manager Family Medicine 12/29/22 08/24/24 [place]ary Frank, RN Licensed Practical Nurse Family Medicine 06/09/24 07/21/24 Kaylen Moore LPN 07/21/24 documented as of this encounter
--- OUTSIDE RECORDS SUMMARY | 2024-10-12 14:20 | XMS_ITS | Encounter Summary ---
Author Organization [facility] Address [address] [facility] [place] [address] Care Team Providers Care Strip Machine Operator Name Role Phone Shawn Barber MD Unavailable [phone] Shawn Barber MD Primary Care Provider Wednesday, Randee SEGALN Unavailable [phone] Becca Campos PLATE SLITTER AND INSPECTOR Unavailable [phone] Hilary Frank RN Unavailable [phone] Kaylen Moore PANELBEATER Unavailable Unavailable Encounter Details Date Type Department Care Team (Late st Contact Info) Description 11/16/2023 Abstract [facility] [address] [facility] 110 [place] [phone] Shawn Barber MD 112 [facility] 110 [place] [address] Social History Tobacco Use Types [...] often do you attend chur ch or alevism services? Never 01/29/2023 Do you belong to any clubs o r organizations such as confucianist groups, unions, fraternal or athletic groups, or [...] Recorded Patient Health Questionnaire-2 Score 1 11/25/2022 [facility] [place] of Occupat ional Health - Occupational [...] place to sleep or slept in a [place] [facility] [place] (including now)? No 01/29/2023 Housing Stability Vital [...] EDT Office Visit [facility] 112 [facility] 110 [place] [address] Shawn Barber MD 112 [facility] 110 [place] [address] 10/26/2024 2:50 PM EDT Office Visit [facility] [address] [place] [address] Colt Mendieta, DPM 3006 [facility] 5 [place] [address] documented as of this encounter Visit Diagnoses Not on filedocumented in this encounter Care Teams Strip Machine Operator Relationship Specialty Start Date End Date Shawn Barber MD [address] [place] [address] PCP - ACO Reach 09/24/22 Shawn Barber MD [address] [place] [address] PCP - General Internal Medicine 10/22/22Wednesday, NIKHIL Jeff [address] [place] [address] Licensed Practical Nurse Family Medicine 12/29/22 06/09/24 Becca Campos LSW Tip Stretcher Family Medicine 12/29/22 08/24/24 Hilary Frank, RN Licensed Practical Nurse Family Medicine 06/09/24 07/21/24 Kaylen Moore LPN 07/21/24 documented as of this encounter
--- OUTSIDE RECORDS SUMMARY | 2024-10-12 14:20 | XMS_ITS | Encounter Summary ---
Author Organization [facility] Address [address] [facility] [place] [address] Care Team Providers Care Purchase Analyst Name Role Phone Shawn Barber MD Unavailable [phone] Shawn Barber MD Primary Care Provider Wednesday, Randee SEGALN Unavailable [phone] Becca Campos PULVERIZER FEEDER Unavailable [phone] Hilary Frank RN Unavailable [phone] Kaylen Moore SR. UNIX SYSTEM ADMINISTRATOR Unavailable Unavailable Encounter Details Date Type Department Care Team (Late st Contact Info) Description 11/16/2023 Abstract [facility] [address] [facility] 110 [place] [phone] Shawn Barber MD 112 [facility] 110 [place] [address] Social History Tobacco Use Types [...] attend chur ch or hoahaoism services? Never 01/29/2023 Do you belong to [...] Recorded Patient Health Questionnaire-2 Score 1 11/25/2022 [facility] [place] of Occupat ional Health - Occupational Stress [...] 2:00 PM EDT Office Visit [facility] 112 [facility] 110 [place] [address] Shawn Barber MD 112 [facility] 110 [place] [address] 10/26/2024 2:50 PM EDT Office Visit [facility] [address] [place] [address] Colt Mendieta, DPM 3[address] [facility] 5 [place] [address] documented as of this encounter Visit Diagnoses Not on filedocumented in this encounter Care Teams Purchase Analyst Relationship Specialty Start Date End Date Shawn Barber MD [address] [place] [address] PCP - ACO Reach 09/24/22 Shawn Barber MD [address] [place] [address] PCP - General Internal Medicine 10/22/22Wednesday, NIKHIL Jeff [address] [place] [address] Licensed Practical Nurse Family Medicine 12/29/22 06/09/24 Becca Campos LSW Switchboard Receptionist Family Medicine 12/29/22 08/24/24 Hilary Frank, RN Licensed Practical Nurse Family Medicine 06/09/24 07/21/24 Kaylen Moore LPN 07/21/24 documented as of this encounter
--- OUTSIDE RECORDS SUMMARY | 2024-10-12 14:20 | XMS_ITS | Encounter Summary ---
Author Organization [facility] Address [address] [facility] [place] [address] Care Team Providers Care Dental Mechanic Name Role Phone Shawn Barber MD Unavailable Shawn Barber MD Primary Care Provider Wednesday, Randee SEGALN Unavailable [phone] Becca Campos POWER SEWING MACHINE OPERATOR Unavailable [phone] Hilary Frank RN Unavailable [phone] Kaylen Moore DRUM DRIER Unavailable Unavailable Encounter Details Date Type Department Care Team (Late st Contact Info) Description 11/09/2023 Abstract [facility] [address] [facility] 110 [place] [id number] Shawn Barber MD 112 [facility] 110 [place] [address] Social History Tobacco Use Types [...] often do you attend chur ch or nondenominational services? Never 01/29/2023 Do you belong to any clubs o r organizations such as rastafari groups, unions, fraternal or athletic groups, or [...] Recorded Patient Health Questionnaire-2 Score 1 11/25/2022 [facility] [place] of Occupat ional Health - Occupational Stress [...] place to sleep or slept in a mcc (including now)? No 01/29/2023 Housing Stability Vital [...] EDT Office Visit [facility] 112 [facility] 110 [place] [address] Shawn Barber MD 112 [facility] 110 [place] [address] 10/26/2024 2:50 PM EDT Office Visit [facility] [address] [place] [address] Colt Mendieta, DPM 3006 [facility] 5 [place] [address] documented as of this encounter Visit Diagnoses Not on filedocumented in this encounter Care Teams Dental Mechanic Relationship Specialty Start Date End Date Shawn Barber MD [address] [place] [address] PCP - ACO Reach 09/24/22 Shawn Barber MD [address] [place] [address] PCP - General Internal Medicine 10/22/22Wednesday, NIKHIL Jeff [address] [place] [address] Licensed Practical Nurse Family Medicine 12/29/22 06/09/24 Becca Campos LSW Hog Tender Family Medicine 12/29/22 08/24/24 Hilary Frank, RN Licensed Practical Nurse Family Medicine 06/09/24 07/21/24 Kaylen Moore LPN 07/21/24 documented as of this encounter
--- OUTSIDE RECORDS SUMMARY | 2024-10-12 14:20 | XMS_ITS | Encounter Summary ---
Author Organization [facility] Address [address] [facility] [address] Care Team Providers Care Mental Health Program Manager Name Role Phone Shawn Barber MD Unavailable [phone] Shawn Barber MD Primary Care Provider [phone] Wednesday, Randee TEJEDA Unavailable [phone] Becca Campos FRUIT RANCHER Unavailable [phone] Hilary Frank RN Unavailable [phone] Kaylen Moore CLINICAL ALLERGIST Unavailable Unavailable Encounter Details Date Type Department Care Team (Late st Contact Info) Description 11/25/2022 Abstract [facility] [address] [facility] 110 [place] [id number] Shawn Barber MD [address] [facility] 110 [place] [address] Social History Tobacco Use Types [...] [address] [place] [address] Shawn Barber MD [address] [place] [address] 10/26/2024 2:50 PM EDT Office Visit [facility] [address] [place] [address] Colt Mendieta DPM 3006 [facility] 5 [place] [address] documented as of this encounter Visit Diagnoses Not on filedocumented in this encounter Care Teams Mental Health Program Manager Relationship Specialty Start Date End Date Shawn Barber MD [address] [place] [address] PCP - ACO Reach 09/24/22 Shawn Barber MD [address] [place] [address] PCP - General Internal Medicine 10/22/22Wednesday, NIKHIL Jeff [address] [place] [address] Licensed Practical Nurse Family Medicine 12/29/22 06/09/24 Becca Campos LSW Head Resident Family Medicine 12/29/22 08/24/24 Hilary Frank, RN Licensed Practical Nurse Family Medicine 06/09/24 07/21/24 Kaylen Moore LPN 07/21/24 documented as of this encounter
--- OUTSIDE RECORDS SUMMARY | 2024-10-12 14:20 | XMS_ITS | Encounter Summary ---
Author Organization [facility] Address [address] [facility] [address] Care Team Providers Care Forest Fire Fighter Name Role Phone Shawn Barber MD Unavailable [phone] Shawn Barber MD Primary Care Provider [phone] Wednesday, Randee TEJEDA Unavailable [phone] Becca Campos INFECTION PREVENTION PRACTITIONER Unavailable [phone] Hilary Frank RN Unavailable [phone] Kaylen Moore ENVIRONMENTAL LEAD Unavailable Unavailable Encounter Details Date Type Department Care Team (Late st Contact Info) Description 11/25/2022 Abstract [facility] [address] [facility] 110 [place] [id number] Shawn Barber MD [address] [facility] 110 [place] [address] Social History Tobacco Use Types [...] [address] [place] [address] Shawn Barber MD [address] [place] [address] 10/26/2024 2:50 PM EDT Office Visit [facility] [address] [place] [address] Colt Mendieta DPM 3006 [facility] 5 [place] [address] documented as of this encounter Visit Diagnoses Not on filedocumented in this encounter Care Teams Forest Fire Fighter Relationship Specialty Start Date End Date Shawn Barber MD [address] [place] [address] PCP - ACO Reach 09/24/22 Shawn Barber MD [address] [place] [address] PCP - General Internal Medicine 10/22/22Wednesday, NIKHIL Jeff [address] [place] [address] Licensed Practical Nurse Family Medicine 12/29/22 06/09/24 Becca Campos LSW Button Inspector Family Medicine 12/29/22 08/24/24 Hilary Frank, RN Licensed Practical Nurse Family Medicine 06/09/24 07/21/24 Kaylen Moore LPN 07/21/24 documented as of this encounter
--- OUTSIDE RECORDS SUMMARY | 2024-10-12 14:20 | XMS_ITS | Encounter Summary ---
Author Organization [facility] Address [address] [facility] [place] [address] Care Team Providers Care Machine Lacer Name Role Phone Shawn Barber MD Unavailable [phone] Shawn Barber MD Primary Care Provider [phone] Wednesday, Randee SEGALN Unavailable [phone] Becca Campos HEAD TRANSFER CLERK Unavailable [phone] Hilary Frank RN Unavailable [phone] Kaylen Moore CELLULOID TRIMMER Unavailable Unavailable Encounter Details Date Type Department Care Team (Late st Contact Info) Description 11/16/2023 Abstract [facility] [address] [facility] 110 [place] [phone] Shawn Barber MD 112 [facility] 110 [place] [address] Social History Tobacco Use Types [...] often do you attend chur ch or restorationist services? Never 01/29/2023 Do you belong to any clubs o r organizations such as samaritan groups, unions, fraternal or athletic groups, or [...] Recorded Patient Health Questionnaire-2 Score 1 11/25/2022 [facility] [place] of Occupat ional Health - Occupational Stress [...] place to sleep or slept in a usp (including now)? No 01/29/2023 Housing Stability Vital [...] Office Visit [facility] 112 [facility] 110 [place] [address] Shawn Barber MD 112 [facility] 110 [place] [address] 10/26/2024 2:50 PM EDT Office Visit [facility] [address] [place] [address] Colt Mendieta, DPM 3006 [facility] 5 [place] [address] documented as of this encounter Visit Diagnoses Not on filedocumented in this encounter Care Teams Machine Lacer Relationship Specialty Start Date End Date Shawn Barber MD [address] [place] [address] PCP - ACO Reach 09/24/22 Shawn Barber MD [address] 110 [place] [address] PCP - General Internal Medicine 10/22/22Wednesday, NIKHIL Jeff [address] [place] [address] Licensed Practical Nurse Family Medicine 12/29/22 06/09/24 Becca Campos LSW Jig Builder Helper Family Medicine 12/29/22 08/24/24 Hilary Frank, RN Licensed Practical Nurse Family Medicine 06/09/24 07/21/24 Kaylen Moore LPN 07/21/24 documented as of this encounter
--- OUTSIDE RECORDS SUMMARY | 2024-10-12 14:20 | XMS_ITS | Encounter Summary ---
Author Organization [facility] Address [address] [facility] [place] [address] Care Team Providers Care Diesel Locomotive Firer Name Role Phone Shawn Barber MD Unavailable [phone] Shawn Barber MD Primary Care Provider [phone] Wednesday, Randee SEGALN Unavailable [phone] Becca Campos OBSTETRICIAN Unavailable [phone] Hilary Frank RN Unavailable [phone] Kaylen Moore CAR BODY MECHANIC Unavailable Unavailable Encounter Details Date Type Department Care Team (Late Contact Info) Description 11/13/2022 Abstract [facility] [address] [facility] 110 [place] [phone] Shawn Barber MD 112 [facility] 110 [place] [address] Social History Tobacco Use Types Packs/Day Years Used Date Smoking Tobacco: Every Day Cigarettes Smokeless Tobacco: Never Alcohol Use Standard Drinks/Week Comments Not Currently 0 (1 standard drink = 0.6 oz pur e alcohol) PHQ-2 Answer Date Recorded Patient Health Questionnaire-2 Score 0 11/17/2022 Comments Unknown Sex and Gender Information Value [...] [address] [place] [address] Shawn Barber MD [address] [place] [address] 10/26/2024 2:50 PM EDT Office Visit [facility] [address] [place] [address] Colt Mendieta, DPChris 3006 [facility] 5 [place] [address] documented as of this encounter Visit Diagnoses Not on filedocumented in this encounter Care Teams Diesel Locomotive Firer Relationship Specialty Start Date End Date Shawn Barber MD [address] [place] [address] PCP - ACO Reach 09/24/22 Shawn Barber MD [address] [place] [address] PCP - General Internal Medicine 10/22/22WednesdayRandee LPN [address] [place] [address] Licensed Practical Nurse Family Medicine 12/29/22 06/09/24 Becca Campos LSW Chocolate Dipper Family Medicine 12/29/22 08/24/24 Hilary Frank, RN Licensed Practical Nurse Family Medicine 06/09/24 07/21/24 Kaylen Moore LPN 07/21/24 documented as of this encounter
--- OUTSIDE RECORDS SUMMARY | 2024-10-12 14:20 | XMS_ITS | Encounter Summary ---
Author Organization [facility] Address [address] [facility] [place] [address] Care Team Providers Care Development Scientist Name Role Phone Shawn Barber MD Unavailable [phone] Shawn Barber MD Primary Care Provider Wednesday, Randee SEGALN Unavailable [phone] Becca Campos LOIN TRIMMER Unavailable [phone] Hilary Frank RN Unavailable [phone] Kaylen Moore WET MACHINE CUTTER Unavailable Unavailable Encounter Details Date Type Department Care Team (Late st Contact Info) Description 11/09/2023 Abstract [facility] [address] [facility] 110 [place] [phone] Shawn Barber MD 112 [facility] 110 [place] [address] Social History Tobacco Use Types [...] often do you attend chur ch or islam services? Never 01/29/2023 Do you belong to any clubs o r organizations such as religious groups, unions, fraternal or athletic groups, or [...] Recorded Patient Health Questionnaire-2 Score 1 11/25/2022 [employer] [place] of Occupat ional Health - Occupational Stress [...] place to sleep or slept in a senior living (including now)? No 01/29/2023 Housing Stability Vital [...] EDT Office Visit [facility] 112 [facility] 110 [place] [address] Shawn Barber MD 112 [facility] 110 [place] [address] 10/26/2024 2:50 PM EDT Office Visit [facility] [address] [place] [address] Colt Mendieta, DPM 3006 [facility] 5 [place] [address] documented as of this encounter Visit Diagnoses Not on filedocumented in this encounter Care Teams Development Scientist Relationship Specialty Start Date End Date Shawn Barber MD [address] [place] [address] PCP - ACO Reach 09/24/22 Shawn Barber MD [address] [place] [address] PCP - General Internal Medicine 10/22/22Wednesday, NIKHIL Jeff [address] [place] [address] Licensed Practical Nurse Family Medicine 12/29/22 06/09/24 Becca Campos LSW Various Exceptionalities Teacher Family Medicine 12/29/22 08/24/24 Hilary Frank, RN Licensed Practical Nurse Family Medicine 06/09/24 07/21/24 Kaylen Moore LPN 07/21/24 documented as of this encounter
--- OUTSIDE RECORDS SUMMARY | 2024-10-12 14:20 | XMS_ITS | Encounter Summary ---
Author Organization [facility] Address [address] [facility] [place] [address] Care Team Providers Care Video Journalist Name Role Phone Shawn Barber MD Unavailable [phone] Shawn Barber MD Primary Care Provider [phone] Wednesday, Randee TEJEDA Unavailable [phone] Becca Campos SCOUT EXECUTIVE Unavailable [phone] Hilary Frank RN Unavailable [phone] Kaylen Moore PUBLIC HEALTH PROFESSOR Unavailable Unavailable Encounter Details Date Type Department Care Team (Late st Contact Info) Description 11/24/2022 Abstract [facility] [address] [facility] 110 [place] [phone] Shawn Barber MD [address] [facility] 110 [place] [address] Social History Tobacco Use Types [...] Questionnaire-2 Score 1 11/25/2022 7:23 AM EDT iHlary Kendall MA documented as of this encounter Plan of Treatment Upcoming Encounters Date Type Department Care Team (Late st Contact Info) Description 10/23/2024 2:00 PM EDT Office Visit [facility] [address] [place] [address] Shawn Barber MD [address] [place] [address] 10/26/2024 2:50 PM EDT Office Visit [facility] [address] [place] [address] Colt Mendieta DPM 3006 [facility] 5 [place] [address] documented as of this encounter Visit Diagnoses Not on filedocumented in this encounter Care Teams Video Journalist Relationship Specialty Start Date End Date Shawn Barber MD [address] [place] [address] PCP - ACO Reach 09/24/22 Shawn Barber MD [address] [place] [address] PCP - General Internal Medicine 10/22/22Wednesday, NIKHIL Jeff [address] [place] [address] Licensed Practical Nurse Family Medicine 12/29/22 06/09/24 Becca Campos LSW Paratransit Driver Family Medicine 12/29/22 08/24/24 Hilary Frank, RN Licensed Practical Nurse Family Medicine 06/09/24 07/21/24 Kaylen Moore LPN 07/21/24 documented as of this encounter
--- OUTSIDE RECORDS SUMMARY | 2024-10-12 14:20 | XMS_ITS | Encounter Summary ---
Author Organization [facility] Address [address] [facility] [place] [address] Care Team Providers Care Can Stacker Name Role Phone Shawn Barber MD Unavailable [phone] Shawn Barber MD Primary Care Provider [phone] Wednesday, Randee SEGALN Unavailable [phone] Becca Campos RAG SORTER AND CUTTER Unavailable [phone] Hilary Frank RN Unavailable [phone] Kaylen Moore FAMILY INDEPENDENCE CASE MANAGER Unavailable Unavailable Encounter Details Date Type Department Care Team (Late Contact Info) Description 11/13/2022 Abstract [facility] [address] [facility] 110 [place] [phone] Shawn Barber MD 112 [facility] 110 [place] [address] Social History Tobacco Use Types [...] [address] [place] [address] Shawn Barber MD [address] [place] [address] 10/26/2024 2:50 PM EDT Office Visit [facility] [address] [place] [address] Colt Mendieta, DPChris 3006 [facility] 5 [place] [address] documented as of this encounter Visit Diagnoses Not on filedocumented in this encounter Care Teams Can Stacker Relationship Specialty Start Date End Date Shawn Barber MD [address] [place] [address] PCP - ACO Reach 09/24/22 Shawn Barber MD [address] [place] [address] PCP - General Internal Medicine 10/22/22WednesdayRandee LPN [address] [place] [address] Licensed Practical Nurse Family Medicine 12/29/22 06/09/24 Becca Campos LSW Program Dir Family Medicine 12/29/22 08/24/24 Hilary Frank, RN Licensed Practical Nurse Family Medicine 06/09/24 07/21/24 Kaylen Moore LPN 07/21/24 documented as of this encounter
--- OUTSIDE RECORDS SUMMARY | 2024-10-12 14:20 | XMS_ITS | Encounter Summary ---
Author Organization [facility] Address [address] [facility] [place] [address] Care Team Providers Care Service And Repair Supervisor Name Role Phone Shawn Barber MD Unavailable [phone] Shawn Barber MD Primary Care Provider Wednesday, Randee SEGALN Unavailable [phone] Becca Campos CARPENTER WOODEN TANK ERECTING Unavailable [phone] Hilary Frank RN Unavailable [phone] Kaylen Moore FOUNDATION DRILL OPERATOR HELPER Unavailable Unavailable Encounter Details Date Type Department Care Team (Late Contact Info) Description 11/27/2022 Abstract [facility] [address] [facility] 110 [place] [id number] Shawn Barber MD 112 [facility] 110 [place] [address] Social History Tobacco Use Types [...] [address] [place] [address] Shawn Barber MD [address] [place] [address] 10/26/2024 2:50 PM EDT Office Visit [facility] [address] [place] [address] Colt Mendieta, DPChris 3006 [facility] 5 [place] [address] documented as of this encounter Visit Diagnoses Not on filedocumented in this encounter Care Teams Service And Repair Supervisor Relationship Specialty Start Date End Date Shawn Barber MD [address] [place] [address] PCP - ACO Reach 09/24/22 Shawn Barber MD [address] [place] [address] PCP - General Internal Medicine 10/22/22WednesdayRandee LPN [address] [place] [address] Licensed Practical Nurse Family Medicine 12/29/22 06/09/24 Becca Campos LSW Costume Design Teacher Family Medicine 12/29/22 08/24/24 Hilary Frank, RN Licensed Practical Nurse Family Medicine 06/09/24 07/21/24 Kaylen Moore LPN 07/21/24 documented as of this encounter
--- OUTSIDE RECORDS SUMMARY | 2024-10-12 14:20 | XMS_ITS | Encounter Summary ---
Author Organization [facility] Address [address] [facility] [place] [address] Care Team Providers Care Transition Assistant Name Role Phone Shawn Barber MD Unavailable [phone] Shawn Barber MD Primary Care Provider Wednesday, Randee SEGALN Unavailable [phone] Becca Campos ENVIRONMENTAL AUDITOR Unavailable [phone] Hilary Frank RN Unavailable [phone] Kaylen Moore COLLEGE SPORTS ASSISTANT Unavailable Unavailable Encounter Details Date Type Department Care Team (Late st Contact Info) Description 11/16/2023 Abstract [facility] [address] [facility] 110 [place] [phone] Shawn Barber MD 112 [facility] 110 [place] [address] Social History Tobacco Use Types [...] often do you attend chur ch or yazidi services? Never 01/29/2023 Do you belong to [...] Health Questionnaire-2 Score 1 11/25/2022 [facility] [place] of Occupat ional Health - Occupational Stress [...] place to sleep or slept in a correction (including now)? No 01/29/2023 Housing Stability Vital [...] EDT Office Visit [facility] [address] [facility] 110 [place] [address] Shawn Barber MD 112 [facility] 110 [place] [address] 10/26/2024 2:50 PM EDT Office Visit [facility] [address] [place] [address] Colt Mendieta, DPM 3006 [facility] 5 [place] [address] documented as of this encounter Visit Diagnoses Not on filedocumented in this encounter Care Teams Transition Assistant Relationship Specialty Start Date End Date Shawn Barber MD [address] [place] [address] PCP - ACO Reach 09/24/22 Shawn Barber MD [address] [place] [address] PCP - General Internal Medicine 10/22/22Wednesday, NIKHIL Jeff [address] [place] [address] Licensed Practical Nurse Family Medicine 12/29/22 06/09/24 Becca Campos LSW Concrete Mixer Truck Driver Family Medicine 12/29/22 08/24/24 Hilary Frank, RN Licensed Practical Nurse Family Medicine 06/09/24 07/21/24 Kaylen Moore LPN 07/21/24 documented as of this encounter
--- OUTSIDE RECORDS SUMMARY | 2024-10-12 14:20 | XMS_ITS | Encounter Summary ---
Author Organization [facility] Address [address] [facility] [place] [address] Care Team Providers Care Plan Consultant Name Role Phone Shawn Barber MD Unavailable [phone] Shawn Barber MD Primary Care Provider Wednesday, Randee SEGALN Unavailable [phone] Becca Campos PERSONAL SHOPPER Unavailable [phone] Hilary Frank RN Unavailable [phone] Kaylen Moore FITNESS COACH Unavailable Unavailable Encounter Details Date Type Department Care Team (Late st Contact Info) Description 11/16/2023 Abstract [facility] [address] [facility] 110 [place] [phone] Shawn Barber MD 112 [facility] 110 [place] [address] Social History Tobacco Use Types [...] often do you attend chur ch or latter-day services? Never 01/29/2023 Do you belong to any clubs o r organizations such as presybeterian groups, unions, fraternal or athletic groups, or [...] Recorded Patient Health Questionnaire-2 Score 1 11/25/2022 [facility] [place] of Occupat ional Health - Occupational Stress [...] EDT Office Visit [facility] 112 [facility] 110 [place] [address] Shawn Barber MD 112 [facility] 110 [place] [address] 10/26/2024 2:50 PM EDT Office Visit [facility] [address] [place] [address] Colt Mendieta, DPM 3006 [facility] 5 [place] [address] documented as of this encounter Visit Diagnoses Not on filedocumented in this encounter Care Teams Plan Consultant Relationship Specialty Start Date End Date Shawn Barber MD [address] [place] [address] PCP - ACO Reach 09/24/22 Shawn Barber MD [address] [place] [address] PCP - General Internal Medicine 10/22/22Wednesday, NIKHIL Jeff [address] [place] [address] Licensed Practical Nurse Family Medicine 12/29/22 06/09/24 Becca Campos LSW J2Ee Programmer Family Medicine 12/29/22 08/24/24 Hilary Frank, RN Licensed Practical Nurse Family Medicine 06/09/24 07/21/24 Kaylen Moore LPN 07/21/24 documented as of this encounter
--- OUTSIDE RECORDS SUMMARY | 2024-10-12 14:20 | XMS_ITS | Encounter Summary ---
Author Organization [facility] Address [address] [facility] [place] [address] Care Team Providers Care Job Analysis Manager Name Role Phone Shawn Barber MD Unavailable [phone] Shawn Barber MD Primary Care Provider [phone] Wednesday, Randee SEGALN Unavailable [phone] Becca Campos HIDE STRETCHER HAND Unavailable [phone] Hilary Frank RN Unavailable [phone] Kaylen Moore MARINE OIL TERMINAL SUPERINTENDENT Unavailable Unavailable Encounter Details Date Type Department Care Team (Late st Contact Info) Description 11/08/2023 Abstract [facility] [address] [facility] 110 [place] [id number] Shawn Barber MD 112 [facility] 110 [place] [address] Social History Tobacco Use Types [...] often do you attend chur ch or buddhist services? Never 01/29/2023 Do you belong to any clubs o r organizations such as evangelical groups, unions, fraternal or athletic groups, or [...] Recorded Patient Health Questionnaire-2 Score 1 11/25/2022 [facility] [place] of Occupat ional Health - Occupational Stress [...] place to sleep or slept in a skilled nursing (including now)? No 01/29/2023 Housing Stability Vital [...] EDT Office Visit [facility] 112 [facility] 110 [place] [address] Shawn Barber MD 112 [facility] 110 [place] [address] 10/26/2024 2:50 PM EDT Office Visit [facility] [address] [place] [address] Colt Mendieta, DPM 3006 [facility] 5 [place] [address] documented as of this encounter Visit Diagnoses Not on filedocumented in this encounter Care Teams Job Analysis Manager Relationship Specialty Start Date End Date Shawn Barber MD [address] [place] [address] PCP - ACO Reach 09/24/22 Shawn Barber MD [address] [place] [address] PCP - General Internal Medicine 10/22/22Wednesday, NIKHIL Jeff [address] [place] [address] Licensed Practical Nurse Family Medicine 12/29/22 06/09/24 Becca Campos LSW Dental Office Coordinator Family Medicine 12/29/22 08/24/24 Hilary Frank, RN Licensed Practical Nurse Family Medicine 06/09/24 07/21/24 Kaylen Moore LPN 07/21/24 documented as of this encounter
--- OUTSIDE RECORDS SUMMARY | 2024-10-12 14:20 | XMS_ITS | Encounter Summary ---
Author Organization [facility] Address [address] [facility] [place] [address] Care Team Providers Care Deep Sea Diver Name Role Phone Shawn Barber MD Unavailable [phone] Shawn Barber MD Primary Care Provider [phone] Wednesday, Randee TEJEDA Unavailable [phone] Becca Campos COMPLIANCE PROGRAM MANAGER Unavailable [phone] Hilary Frank RN Unavailable [phone] Kaylen Moore MIXING TECHNICIAN Unavailable Unavailable Encounter Details Date Type Department Care Team (Late st Contact Info) Description 01/12/2024 Abstract [facility] 112 [facility] [facility] 110 [place] [id number] Shawn Barber MD 112 [facility] 110 [place] [address] Social History Tobacco Use Types [...] often do you attend chur ch or restoration services? Never 12/06/2023 Do you belong to [...] Recorded Patient Health Questionnaire-2 Score 1 11/25/2022 [facility] - Occupational Stress Questionnaire [...] place to sleep or slept in a halfway (including now)? No 01/29/2023 Housing Stability Vital Sign Answer Mendez e Recorded In the last 12 months, was t here a time when you were not able to pay the mortgage or rent on time? No 12/06/2023 In the past 12 months, how m any times have you moved where you were living? 0 12/06/2023 At any time in the past 12 m [facility], were you homeless or living in a halfway (including now)? No 12/06/2023 Comments Unknown Sex [...] [address] [place] [address] Shawn Barber MD [address] [place] [address] 10/26/2024 2:50 PM EDT Office Visit [facility] [address] [place] [address] Colt Mendieta, DPM 3006 [facility] 5 [place] [address] documented as of this encounter Visit Diagnoses Not on filedocumented in this encounter Care Teams Deep Sea Diver Relationship Specialty Start Date End Date Shawn Barber MD [address] [place] [address] PCP - ACO Reach 09/24/22 Shawn Barber MD [address] [place] [address] PCP - General Internal Medicine 10/22/22WednesdayRandee LPN [address] [place] [address] Licensed Practical Nurse Family Medicine 12/29/22 06/09/24 Becca Campos LSW Still Operator Helper Family Medicine 12/29/22 08/24/24 Hilary Frank, RN Licensed Practical Nurse Family Medicine 06/09/24 07/21/24 Kaylen Moore LPN 07/21/24 documented as of this encounter
--- OUTSIDE RECORDS SUMMARY | 2024-10-12 14:20 | XMS_ITS | Encounter Summary ---
Author Organization [facility] Address [address] [facility] [place] [address] Care Team Providers Care Theater Education Teacher Name Role Phone Shawn Barber MD Unavailable [phone] Shawn Barber MD Primary Care Provider Wednesday, Randee SEGALN Unavailable [phone] Becca Campos RUBBER PROCESS HAND Unavailable [phone] Hilary Frank RN Unavailable [phone] Kaylen Moore STOCK RECEIVER Unavailable Unavailable Encounter Details Date Type Department Care Team (Late st Contact Info) Description 11/15/2023 Abstract [facility] 112 [facility] [facility] 110 [place] [id number] Shawn Barber MD 112 [facility] 110 [place] [address] Social History Tobacco Use Types [...] often do you attend chur ch or congregation services? Never 01/29/2023 Do you belong to any clubs o r organizations such as roman catholic groups, unions, fraternal or athletic groups, or [...] Recorded Patient Health Questionnaire-2 Score 1 11/25/2022 [facility] [place] of Occupat ional Health - Occupational Stress [...] EDT Office Visit [facility] 112 [facility] 110 [place] [address] Shawn Barber MD 112 [facility] 110 [place] [address] 10/26/2024 2:50 PM EDT Office Visit [facility] [address] [place] [address] Colt Mendieta, DPM 3006 [facility] [place] [address] documented as of this encounter Visit Diagnoses Not on filedocumented in this encounter Care Teams Theater Education Teacher Relationship Specialty Start Date End Date Shawn Barber MD [address] [place] [address] PCP - ACO Reach 09/24/22 Shawn Barber MD [address] [place] [address] PCP - General Internal Medicine 10/22/22Wednesday, NIKHIL Jeff [address] [place] [address] Licensed Practical Nurse Family Medicine 12/29/22 06/09/24 Becca Campos LSW Healthcare Economics Manager Family Medicine 12/29/22 08/24/24 Hilary Frank, RN Licensed Practical Nurse Family Medicine 06/09/24 07/21/24 Kaylen Moore LPN 07/21/24 documented as of this encounter
--- OUTSIDE RECORDS SUMMARY | 2024-10-12 14:20 | XMS_ITS | Encounter Summary ---
Author Organization [facility] Address [address] [facility] [place] [address] Care Team Providers Care Outreach Librarian Name Role Phone Shawn Barber MD Unavailable Shawn Barber MD Primary Care Provider [phone] Wednesday, Randee SEGALN Unavailable [phone] Becca Campos MARINE FIREFIGHTER Unavailable [phone] Hilary Frank RN Unavailable [phone] Kaylen Moore HEAD BELLHOP CAPTAIN Unavailable Unavailable Encounter Details Date Type Department Care Team (Late st Contact Info) Description 11/23/2022 Abstract [facility] [address] [facility] 110 [place] [address] Shawn Barber MD [address] [facility] 110 [place] [address] Social History Tobacco Use Types [...] [address] [place] [address] Shawn Barber MD [address] [place] [address] 10/26/2024 2:50 PM EDT Office Visit [facility] [address] [place] [address] Colt Mendieta DPM 3006 [facility] 5 [place] [address] documented as of this encounter Visit Diagnoses Not on filedocumented in this encounter Care Teams Outreach Librarian Relationship Specialty Start Date End Date Shawn Barber MD [address] [place] [address] PCP - ACO Reach 09/24/22 Shawn Barber MD [address] [place] [address] PCP - General Internal Medicine 10/22/22Wednesday, NIKHIL Jeff [address] [place] [address] Licensed Practical Nurse Family Medicine 12/29/22 06/09/24 Becca Campos LSW Rubber Goods Assembler Family Medicine 12/29/22 08/24/24 Hilary Frank, RN Licensed Practical Nurse Family Medicine 06/09/24 07/21/24 Kaylen Moore LPN 07/21/24 documented as of this encounter
--- OUTSIDE RECORDS SUMMARY | 2024-10-12 14:20 | XMS_ITS | Encounter Summary ---
Author Organization [facility] Address [address] [facility] [place] [address] Care Team Providers Care Plastic Surgery Coordinator Name Role Phone Shawn Barber MD Unavailable [phone] Shawn Barber MD Primary Care Provider [phone] Wednesday, Randee SEGALN Unavailable [phone] Becca Campos WINDOW INSTALLER Unavailable [phone] Hilary Frank RN Unavailable [phone] Kaylen Moore MEDICAL UNIT SECRETARY Unavailable Unavailable Encounter Details Date Type Department Care Team (Late st Contact Info) Description 11/09/2023 Abstract [facility] 112 [address] [facility] 110 [place] [address] Shawn Barber MD 112 [facility] 110 [place] [address] Social History Tobacco Use Types [...] often do you attend chur ch or temple services? Never 01/29/2023 Do you belong to [...] Recorded Patient Health Questionnaire-2 Score 1 11/25/2022 [facility] [place] of Occupat ional Health - Occupational Stress [...] [facility] 110 [place] [address] Shawn Barber MD 112 [facility] 110 [place] [address] 10/26/2024 2:50 PM EDT Office Visit [facility] [address] [place] [address] Colt Mendieta, DPM 3006 [facility] 5 [place] [address] documented as of this encounter Visit Diagnoses Not on filedocumented in this encounter Care Teams Plastic Surgery Coordinator Relationship Specialty Start Date End Date Shawn Barber MD [address] [place] [address] PCP - ACO Reach 09/24/22 Shawn Barber MD [address] [place] [address] PCP - General Internal Medicine 10/22/22Wednesday, NIKHIL Jeff [address] [place] [address] Licensed Practical Nurse Family Medicine 12/29/22 06/09/24 Becca Campos LSW Fuselage Framer Family Medicine 12/29/22 08/24/24 Hilary Frank, RN Licensed Practical Nurse Family Medicine 06/09/24 07/21/24 Kaylen Moore LPN 07/21/24 documented as of this encounter
--- OUTSIDE RECORDS SUMMARY | 2024-10-12 14:20 | XMS_ITS | Encounter Summary ---
Author Organization [facility] Address [address] [facility] [place] [address] Care Team Providers Care Real Estate Agency Principal Name Role Phone Shawn Barber MD Unavailable [phone] Shawn Barber MD Primary Care Provider [phone] Wednesday, Randee TEJEDA Unavailable [phone] Becca Campos MANAGER SUPPLY Unavailable [phone] Hilary Frank RN Unavailable [phone] Kaylen Moore PRACTICE CONSULTANT Unavailable Unavailable Encounter Details Date Type Department Care Team (Late st Contact Info) Description 01/12/2024 Abstract [facility] 112 [address] [facility] 110 [place] [address] Shawn Barber MD 112 [facility] 110 [place] [address] Social History Tobacco Use Types [...] often do you attend chur ch or scientology services? Never 12/06/2023 Do you belong to any clubs o r organizations such as christian groups, unions, fraternal or athletic groups, or [...] Patient Health Questionnaire-2 Score 1 11/25/2022 [facility] - [...] place to sleep or slept in a fci (including now)? No 01/29/2023 Housing Stability Vital Sign Answer Mendez e Recorded In the last 12 months, was t here a time when you were not able to pay the mortgage or rent on time? No 12/06/2023 In the past 12 months, how m any times have you moved where you were living? 0 12/06/2023 At any time in the past 12 m [facility], were you homeless or living in a fci (including now)? No 12/06/2023 Comments Unknown Sex [...] [address] [place] [address] Shawn Barber MD [address] [place] [address] 10/26/2024 2:50 PM EDT Office Visit [facility] [address] [place] [address] Colt Mendieta, DPM 3006 [facility] 5 [place] [address] documented as of this encounter Visit Diagnoses Not on filedocumented in this encounter Care Teams Real Estate Agency Principal Relationship Specialty Start Date End Date Shawn Barber MD [address] [place] [address] PCP - ACO Reach 09/24/22 Shawn Barber MD [address] [place] [address] PCP - General Internal Medicine 10/22/22WednesdayRandee LPN [address] [place] [address] Licensed Practical Nurse Family Medicine 12/29/22 06/09/24 Becca Campos LSW Alcohol And Drug Counselor Family Medicine 12/29/22 08/24/24 Hilary Frank, RN Licensed Practical Nurse Family Medicine 06/09/24 07/21/24 Kaylen Moore LPN 07/21/24 documented as of this encounter
--- OUTSIDE RECORDS SUMMARY | 2024-10-12 14:20 | XMS_ITS | Encounter Summary ---
Author Organization [facility] Address [address] [facility] [place] [address] Care Team Providers Care Cook Relief Name Role Phone Shawn Barber MD Unavailable [phone] Shawn Barber MD Primary Care Provider Wednesday, Randee SEGALN Unavailable [phone] Becca Campos SUPERVISOR OF GUIDANCE AND TESTING Unavailable [phone] Hilary Frank RN Unavailable [phone] Kaylen Moore SERVICE CASHIER Unavailable Unavailable Encounter Details Date Type Department Care Team (Late st Contact Info) Description 11/10/2023 Abstract [facility] 112 [address] [facility] 110 [place] [address] Shawn Barber MD 112 [facility] 110 [place] [address] Social History Tobacco Use Types [...] any clubs o r organizations such as yazidi groups, unions, fraternal or athletic groups, or [...] Recorded Patient Health Questionnaire-2 Score 1 11/25/2022 [facility] [place] of Occupat ional Health - Occupational Stress [...] place to sleep or slept in a snf (including now)? No 01/29/2023 Housing Stability Vital [...] EDT Office Visit [facility] 112 [facility] 110 [place] [address] Shawn Barber MD 112 [facility] 110 [place] [address] 10/26/2024 2:50 PM EDT Office Visit [facility] [address] [place] [address] Colt Mendieta, DPM 3006 [facility] 5 [place] [address] documented as of this encounter Visit Diagnoses Not on filedocumented in this encounter Care Teams Cook Relief Relationship Specialty Start Date End Date Shawn Barber MD [address] [place] [address] PCP - ACO Reach 09/24/22 Shawn Barber MD [address] [place] [address] PCP - General Internal Medicine 10/22/22Wednesday, NIKHIL Jeff [address] [place] [address] Licensed Practical Nurse Family Medicine 12/29/22 06/09/24 Bceca Campos LSW Mid Teacher Family Medicine 12/29/22 08/24/24 Hilary Frank, RN Licensed Practical Nurse Family Medicine 06/09/24 07/21/24 Kaylen Moore LPN 07/21/24 documented as of this encounter
--- OUTSIDE RECORDS SUMMARY | 2024-10-12 14:20 | XMS_ITS | Encounter Summary ---
Author Organization [facility] Address [address] [facility] [place] [address] Care Team Providers Care Welding Operator Name Role Phone Shawn Barber MD Unavailable [phone] Shawn Barber MD Primary Care Provider [phone] Wednesday, Randee SEGALN Unavailable [phone] Becca Campos STOCK WORKER Unavailable [phone] Hilary Frank RN Unavailable [phone] Kaylen Moore INTERNATIONAL SALES REPRESENTATIVE Unavailable Unavailable Encounter Details Date Type Department Care Team (Late Contact Info) Description 11/27/2022 Abstract [facility] 112 [address] [facility] 110 [place] [phone] Shawn Barber MD 112 [facility] 110 [place] [address] Social History Tobacco Use Types [...] [address] [place] [address] Shawn Barber MD [address] [place] [address] 10/26/2024 2:50 PM EDT Office Visit [facility] [address] [place] [address] Colt Mendieta, DPChris 3006 [facility] 5 [place] [address] documented as of this encounter Visit Diagnoses Not on filedocumented in this encounter Care Teams Welding Operator Relationship Specialty Start Date End Date Shawn Barber MD [address] [place] [address] PCP - ACO Reach 09/24/22 Shawn Barber MD [address] [place] [address] PCP - General Internal Medicine 10/22/22WednesdayRandee LPN [address] [place] [address] Licensed Practical Nurse Family Medicine 12/29/22 06/09/24 Becca Campos LSW Wood Grainer Family Medicine 12/29/22 08/24/24 Hilary Frank, RN Licensed Practical Nurse Family Medicine 06/09/24 07/21/24 Kaylen Moore LPN 07/21/24 documented as of this encounter
--- OUTSIDE RECORDS SUMMARY | 2024-10-12 14:20 | XMS_ITS | Encounter Summary ---
Author Organization [facility] Address [address] [facility] [place] [address] Care Team Providers Care Hospital Monitor Name Role Phone Shawn Barber MD Unavailable [phone] Shawn Barber MD Primary Care Provider [phone] Wednesday, Randee TEJEDA Unavailable [phone] Becca Campos BROOM MAKER Unavailable [phone] Hilary Frank RN Unavailable [phone] Kaylen Moore FLASK CARRIER Unavailable Unavailable Encounter Details Date Type Department Care Team (Late st Contact Info) Description 12/29/2023 Abstract [facility] 112 [address] [facility] 110 [place] [id number] Shawn Barber MD 112 [facility] 110 [place] [address] Social History Tobacco Use Types [...] often do you attend chur ch or worship services? Never 12/06/2023 Do you belong to [...] Patient Health Questionnaire-2 Score 1 11/25/2022 [facility] - Occupational Stress Questionnaire [...] place to sleep or slept in a fdc (including now)? No 01/29/2023 Housing Stability Vital [...] were you homeless or living in a fdc (including now)? No 12/06/2023 Comments Unknown Sex [...] [address] [place] [address] Shawn Barber MD [address] [place] [address] 10/26/2024 2:50 PM EDT Office Visit [facility] [address] [place] [address] Colt Mendieta, DPM 3006 [facility] 5 [place] [address] documented as of this encounter Visit Diagnoses Not on filedocumented in this encounter Care Teams Hospital Monitor Relationship Specialty Start Date End Date Shawn Barber MD [address] [place] [address] PCP - ACO Reach 09/24/22 Shawn Barber MD [address] [place] [address] PCP - General Internal Medicine 10/22/22WednesdayRandee LPN [address] [place] [address] Licensed Practical Nurse Family Medicine 12/29/22 06/09/24 Becca Campos LSW Cloud Automation Tester Family Medicine 12/29/22 08/24/24 Hilary Frank, RN Licensed Practical Nurse Family Medicine 06/09/24 07/21/24 Kaylen Moore LPN 07/21/24 documented as of this encounter
--- OUTSIDE RECORDS SUMMARY | 2024-10-12 14:20 | XMS_ITS | Encounter Summary ---
Author Organization [facility] Address [address] [facility] [place] [address] Care Team Providers Care Cadastral Engineer Name Role Phone Shawn Barber MD Unavailable [phone] Shawn Barber MD Primary Care Provider [phone] Wednesday, Randee SEGALN Unavailable [phone] Becca Campos ROPE WALKER Unavailable [phone] Hilary Farnk RN Unavailable [phone] Kaylen Moore DISPLAY CARD WRITER Unavailable Unavailable Encounter Details Date Type Department Care Team (Late st Contact Info) Description 11/16/2023 Abstract [facility] [address] [facility] 110 [place] [address] Shawn Barebr MD 112 [facility] 110 [place] [address] Social History Tobacco Use Types [...] often do you attend chur ch or mosque services? Never 01/29/2023 Do you belong to any clubs o r organizations such as holiness groups, unions, fraternal or athletic groups, or [...] Recorded Patient Health Questionnaire-2 Score 1 11/25/2022 [facility] [place] of Occupat ional Health - Occupational Stress [...] Office Visit [facility] [address] [facility] 110 [place] [address] Shawn Barber MD 112 [facility] 110 [place] [address] 10/26/2024 2:50 PM EDT Office Visit [facility] [address] [place] [address] Colt Mendieta, DPM 3006 [facility] 5 [place] [address] documented as of this encounter Visit Diagnoses Not on filedocumented in this encounter Care Teams Cadastral Engineer Relationship Specialty Start Date End Date Shawn Barber MD [address] [place] [address] PCP - ACO Reach 09/24/22 Shawn Barber MD [address] [place] [address] PCP - General Internal Medicine 10/22/22Wednesday, NIKHIL Jeff [address] [place] [address] Licensed Practical Nurse Family Medicine 12/29/22 06/09/24 Becca Campos LSW Remote Mortgage Underwriter Family Medicine 12/29/22 08/24/24 Hilary Frank, RN Licensed Practical Nurse Family Medicine 06/09/24 07/21/24 Kaylen Moore LPN 07/21/24 documented as of this encounter
--- OUTSIDE RECORDS SUMMARY | 2024-10-12 14:20 | XMS_ITS | Encounter Summary ---
Author Organization [facility] Address [address] [facility] [place] [address] Care Team Providers Care Agricultural Equipment Sales Manager Name Role Phone Shawn Barber MD Unavailable [phone] Shawn Barber MD Primary Care Provider Wednesday, Randee SEGALN Unavailable [phone] Becca Campos WATER RESOURCES ENGINEER Unavailable [phone] Hilary Frank RN Unavailable [phone] Kaylen Moore PAROLE OFFICER Unavailable Unavailable Encounter Details Date Type Department Care Team (Late st Contact Info) Description 11/16/2023 Abstract [facility] [address] [facility] 110 [place] [id number] Shawn Barber MD 112 [facility] 110 [place] [address] Social History Tobacco Use Types [...] often do you attend chur ch or samaritan services? Never 01/29/2023 Do you belong to any clubs o r organizations such as gnosticism groups, unions, fraternal or athletic groups, or [...] Recorded Patient Health Questionnaire-2 Score 1 11/25/2022 [facility] [place] of Occupat ional Health - Occupational [...] place to sleep or slept in a retirement (including now)? No 01/29/2023 Housing Stability Vital [...] EDT Office Visit [facility] [place] 112 [facility] 110 [place] [address] Shawn Barber MD 112 [facility] 110 [place] [address] 10/26/2024 2:50 PM EDT Office Visit [facility] [address] 120 [place] [address] Colt Mendieta, DPM 3006 [facility] 5 [place] [address] documented as of this encounter Visit Diagnoses Not on filedocumented in this encounter Care Teams Agricultural Equipment Sales Manager Relationship Specialty Start Date End Date Shawn Barber MD [address] [place] [address] PCP - ACO Reach 09/24/22 Shawn Barebr MD [address] 110 [place] [address] PCP - General Internal Medicine 10/22/22Wednesday, NIKHIL Jeff [address] [place] [address] Licensed Practical Nurse Family Medicine 12/29/22 06/09/24 Becca Campos LSW Digital Composer Family Medicine 12/29/22 08/24/24 Hilary Frank, RN Licensed Practical Nurse Family Medicine 06/09/24 07/21/24 Kaylen Moore LPN 07/21/24 documented as of this encounter
--- OUTSIDE RECORDS SUMMARY | 2024-10-12 14:20 | XMS_ITS | Encounter Summary ---
Author Organization [facility] Address [address] [facility] [place] [address] Care Team Providers Care Gas Distribution Supervisor Name Role Phone Shawn Barber MD Unavailable [phone] Shawn Barber MD Primary Care Provider Wednesday, Randee SEGALN Unavailable [phone] Becca Campos NANOSYSTEMS ENGINEER Unavailable [phone] Hilary Frank RN Unavailable [phone] Kaylen Moore SPORTS EQUIPMENT RACKER Unavailable Unavailable Encounter Details Date Type Department Care Team (Late st Contact Info) Description 11/09/2023 Abstract [facility] [address] [facility] 110 [place] [id number] Shawn Barber MD 112 [facility] 110 [place] [address] Social History Tobacco Use Types [...] often do you attend chur ch or caodaism services? Never 01/29/2023 Do you belong to any clubs o r organizations such as anglican groups, unions, fraternal or athletic groups, or [...] Recorded Patient Health Questionnaire-2 Score 1 11/25/2022 [facility] [place] of Occupat ional Health - Occupational Stress [...] place to sleep or slept in a penitentiary (including now)? No 01/29/2023 Housing Stability Vital [...] [facility] [address] [facility] 110 [place] [address] Shawn Barber MD 112 [facility] 110 [place] [address] 10/26/2024 2:50 PM EDT Office Visit [facility] [address] [place] [address] Colt Mendieta, DPM 3006 [facility] 5 [place] [address] documented as of this encounter Visit Diagnoses Not on filedocumented in this encounter Care Teams Gas Distribution Supervisor Relationship Specialty Start Date End Date Shawn Barber MD [address] [place] [address] PCP - ACO Reach 09/24/22 Shawn Barber MD [address] 110 [place] [address] PCP - General Internal Medicine 10/22/22Wednesday, NIKHIL Jeff [address] [place] [address] Licensed Practical Nurse Family Medicine 12/29/22 06/09/24 Becca Campos LSW Stonecutter Hand Family Medicine 12/29/22 08/24/24 Hilary Frank, RN Licensed Practical Nurse Family Medicine 06/09/24 07/21/24 Kaylen Moore LPN 07/21/24 documented as of this encounter
--- OUTSIDE RECORDS SUMMARY | 2024-10-12 14:21 | XMS_ITS | Encounter Summary ---
Author Organization [facility] Address [address] [place] [address] Care Team Providers Care Hammer Driver Name Role Phone Shawn Barber MD Unavailable [phone] Shawn Barber MD Primary Care Provider [phone] Wednesday, Randee SEGALN Unavailable [phone] Becca Campos DRILLER MULTIPLE SPINDLE Unavailable [phone] Hilary Frank RN Unavailable [phone] Kaylen Moore REFUSE DRIVER Unavailable Unavailable Encounter Details Date Type Department Care Team (Late st Contact Info) Description 03/15/2023 Abstract [facility] [address] [facility] 110 [place] [id number] Shawn Barber MD 112 [facility] 110 [place] [address] Social History Tobacco Use Types Packs/Day Years Used Date Smoking Tobacco: Every Day Cigarettes Smokeless Tobacco: Never Alcohol Use Standard Drinks/Week Comments Not Currently 0 (1 standard drink = 0.6 oz pur e alcohol) Humiliation, Afraid, Rape, and Kick questionnair e [...] often do you attend chur ch or adventism services? Never 01/29/2023 Do you belong to any clubs o r organizations such as restoration groups, unions, fraternal or athletic groups, or [...] Recorded Patient Health Questionnaire-2 Score 1 11/25/2022 [facility] [place] of Occupat ional Health - Occupational Stress [...] Visit [facility] [address] [facility] 110 [place] [address] Shawn Barber MD [address] [facility] 110 [place], [place] [address] 10/26/2024 2:50 PM EDT Office Visit [facility] [address] 120 [place] [address] Colt Mendieta, DPM [facility] 5 [place] [address] documented as of this encounter Visit Diagnoses Not on filedocumented in this encounter Care Teams Hammer Driver Relationship Specialty Start Date End Date Shawn Barber MD [address] [place] [address] PCP - ACO Reach 09/24/22 Shawn Barber MD [address] [facility] 110 [place] [address] PCP - General Internal Medicine 10/22/22WednesdayRandee LPN [address] [facility] 110 [place] [address] Licensed Practical Nurse Family Medicine 12/29/22 06/09/24 Becca Campos LSW Naphthalene Operator Family Medicine 12/29/22 08/24/24 Hilary Frank, RN Licensed Practical Nurse Family Medicine 06/09/24 07/21/24 Kaylen Moore LPN 07/21/24 documented as of this encounter
--- OUTSIDE RECORDS SUMMARY | 2024-10-12 14:21 | XMS_ITS | Encounter Summary ---
Author Organization [facility] Address [address] [facility] [place] [address] Care Team Providers Care Coal Bagger Name Role Phone Shawn Barber MD Unavailable [phone] Shawn Barber MD Primary Care Provider Wednesday, Randee SEGALN Unavailable [phone] Becca Campos ELECTROMEDICAL EQUIPMENT TECHNICIAN Unavailable [phone] Hilary Frank RN Unavailable [phone] Kaylen Moore DRUG ABUSE PROGRAM COORDINATOR Unavailable Unavailable Encounter Details Date Type Department Care Team (Late st Contact Info) Description 11/30/2023 Abstract [facility] [address] [facility] 110 [place] [id number] Shawn Barber MD 112 [facility] 110 [place] [address] Social History Tobacco Use Types [...] often do you attend chur ch or yazdanism services? Never 01/29/2023 Do you belong to any clubs o r organizations such as mandaen groups, unions, fraternal or athletic groups, or [...] Recorded Patient Health Questionnaire-2 Score 1 11/25/2022 [facility] [place] of Occupat ional Health - Occupational Stress [...] EDT Office Visit [facility] 112 [facility] 110 [place] [address] Shawn Barber MD 112 [facility] 110 [place] [address] 10/26/2024 2:50 PM EDT Office Visit [facility] [address] 120 [place] [address] Colt Mendieta, DPM 3006 [facility] 5 [place] [address] documented as of this encounter Visit Diagnoses Not on filedocumented in this encounter Care Teams Coal Bagger Relationship Specialty Start Date End Date Shawn Barber MD [address] [place] [address] PCP - ACO Reach 09/24/22 Shawn Barber MD [address] [place] [address] PCP - General Internal Medicine 10/22/22Wednesday, NIKHIL Jeff [address] [place] [address] Licensed Practical Nurse Family Medicine 12/29/22 06/09/24 Becca Campos LSW Tar Man Family Medicine 12/29/22 08/24/24 Hilary Frank, RN Licensed Practical Nurse Family Medicine 06/09/24 07/21/24 Kaylen Moore LPN 07/21/24 documented as of this encounter
--- OUTSIDE RECORDS SUMMARY | 2024-10-12 14:21 | XMS_ITS | Encounter Summary ---
Author Organization [facility] Address [address] [facility] [place] [address] Care Team Providers Care Motor Analyst Name Role Phone Shawn Barber MD Unavailable [phone] Shawn Barber MD Primary Care Provider [phone] Wednesday, Randee SEGALN Unavailable [phone] Becca Campos RADIOTELEGRAPHER Unavailable [phone] Hilary Frank RN Unavailable [phone] Kaylen Moore PIPE OUT WORKER Unavailable Unavailable Encounter Details Date Type Department Care Team (Late st Contact Info) Description 03/15/2023 Abstract [facility] [address] [facility] 110 [place] [phone] Shawn Barber MD 112 [facility] 110 [place] [address] Social History Tobacco Use Types [...] often do you attend chur ch or yarsanism services? Never 01/29/2023 Do you belong to any clubs o r organizations such as buddhism groups, unions, fraternal or athletic groups, or [...] Recorded Patient Health Questionnaire-2 Score 1 11/25/2022 [facility] [place] of Occupat ional Health - Occupational Stress [...] Visit [facility] [address] [facility] 110 [place] [address] Shawn Barber MD [address] [facility] 110 [place], [place] [address] 10/26/2024 2:50 PM EDT Office Visit [facility] [address] 120 [place] [address] Colt Mendieta, DPM [facility] 5 [place] [address] documented as of this encounter Visit Diagnoses Not on filedocumented in this encounter Care Teams Motor Analyst Relationship Specialty Start Date End Date Shawn Barber MD [address] [place] [address] PCP - ACO Reach 09/24/22 Shawn Barber MD [address] [facility] 110 [place] [address] PCP - General Internal Medicine 10/22/22WednesdayRandee LPN [address] [facility] 110 [place] [address] Licensed Practical Nurse Family Medicine 12/29/22 06/09/24 Becca Campos LSW Board Certified Family Physician Family Medicine 12/29/22 08/24/24 Hilary Frank, RN Licensed Practical Nurse Family Medicine 06/09/24 07/21/24 Kaylen Moore LPN 07/21/24 documented as of this encounter
--- OUTSIDE RECORDS SUMMARY | 2024-10-12 14:21 | XMS_ITS | Encounter Summary ---
Author Organization [facility] Address [address] [facility] [place] [address] Care Team Providers Care Stockroom Helper Name Role Phone Shawn Barber MD Unavailable Shawn Barber MD Primary Care Provider [phone] Wednesday, Randee TEJEDA Unavailable [phone] Becca Campos LEAD NETWORK ARCHITECT Unavailable [phone] Hilary Frank RN Unavailable [phone] Kaylen Moore FOOD CONSULTANT Unavailable Unavailable Encounter Details Date Type Department Care Team (Late st Contact Info) Description 12/14/2023 Abstract [facility] [address] [facility] 110 [place] [phone] Shawn Barber MD 112 [facility] 110 [place] [address] Social History Tobacco Use Types [...] often do you attend chur ch or congregational services? Never 12/06/2023 Do you belong to any clubs o r organizations such as islam groups, unions, fraternal or athletic groups, or [...] Recorded Patient Health Questionnaire-2 Score 1 11/25/2022 [facility] - Occupational Stress Questionnaire [...] any time in the past 12 m [facility], were you homeless or living in a [...] [address] [place] [address] Shawn Barber MD [address] [place] [address] 10/26/2024 2:50 PM EDT Office Visit [facility] [address] [place] [address] Colt Mendieta, DPM 3006 [facility] 5 [place] [address] documented as of this encounter Visit Diagnoses Not on filedocumented in this encounter Care Teams Stockroom Helper Relationship Specialty Start Date End Date Shawn Barber MD [address] [place] [address] PCP - ACO Reach 09/24/22 Shawn Barber MD [address] [place] [address] PCP - General Internal Medicine 10/22/22WednesdayRandee LPN [address] [place] [address] Licensed Practical Nurse Family Medicine 12/29/22 06/09/24 Becca Campos LSW Systems Development Consultant Family Medicine 12/29/22 08/24/24 Hilary Frank, RN Licensed Practical Nurse Family Medicine 06/09/24 07/21/24 Kaylen Moore LPN 07/21/24 documented as of this encounter
--- OUTSIDE RECORDS SUMMARY | 2024-10-12 14:21 | XMS_ITS | Encounter Summary ---
Author Organization [facility] Address [address] [facility] [place] [address] Care Team Providers Care Auto Bench Mechanic Name Role Phone Shawn Barber MD Unavailable [phone] Shawn Barber MD Primary Care Provider Wednesday, Randee SEGALN Unavailable [phone] Becca Campos OIL MIXER Unavailable [phone] Hilary Frank RN Unavailable [phone] Kaylen Moore BOILER ERECTOR Unavailable Unavailable Encounter Details Date Type Department Care Team (Late st Contact Info) Description 11/30/2023 Abstract [facility] [address] [facility] 110 [place] [address] Shawn Barber MD 112 [facility] 110 [place] [address] Social History Tobacco Use Types [...] any clubs o r organizations such as gnosticist groups, unions, fraternal or athletic groups, or [...] Recorded Patient Health Questionnaire-2 Score 1 11/25/2022 [facility] [place] of Occupat ional Health - Occupational Stress [...] EDT Office Visit [facility] 112 [facility] 110 [place] [address] Shawn Barber MD 112 [facility] 110 [place] [address] 10/26/2024 2:50 PM EDT Office Visit [facility] [address] [place] [address] Colt Mendieta, DPM 3006 [facility] 5 [place] [address] documented as of this encounter Visit Diagnoses Not on filedocumented in this encounter Care Teams Auto Bench Mechanic Relationship Specialty Start Date End Date Shawn Barber MD [address] [place] [address] PCP - ACO Reach 09/24/22 Shawn Barber MD [address] [place] [address] PCP - General Internal Medicine 10/22/22Wednesday, NIKHIL Jeff [address] [place] [address] Licensed Practical Nurse Family Medicine 12/29/22 06/09/24 Becca Campos LSW Parimutuel Ticket Seller Family Medicine 12/29/22 08/24/24 Hilary Frank, RN Licensed Practical Nurse Family Medicine 06/09/24 07/21/24 Kaylen Moore LPN 07/21/24 documented as of this encounter
--- OUTSIDE RECORDS SUMMARY | 2024-10-12 14:21 | XMS_ITS | Encounter Summary ---
Author Organization [facility] Address [address] [facility] [place] [address] Care Team Providers Care Assembling Motor Builder Name Role Phone Shawn Barber MD Unavailable [phone] Shawn Barber MD Primary Care Provider [phone] Wednesday, Randee SEGALN Unavailable [phone] Becca Campos LABOR RELATIONS TEACHER Unavailable [phone] Hilary Frank RN Unavailable [phone] Kaylen Moore CLERK OF SCALES Unavailable Unavailable Encounter Details Date Type Department Care Team (Late st Contact Info) Description 03/11/2023 Abstract [facility] [address] [facility] 110 [place] [address] Shawn Barber MD 112 [facility] 110 [place] [address] Social History Tobacco Use Types [...] any clubs o r organizations such as pentecostalism groups, unions, fraternal or athletic groups, or [...] Recorded Patient Health Questionnaire-2 Score 1 11/25/2022 [facility] [place] of Occupat ional Health - Occupational Stress [...] place to sleep or slept in a half-way (including now)? No 01/29/2023 Housing Stability Vital [...] Visit [facility] [address] [facility] 110 [place] [address] Shawn Barber MD [address] [facility] 110 [place], [place] [address] 10/26/2024 2:50 PM EDT Office Visit [facility] [address] [place] [address] Colt Mendieta, DPM 3006 [facility] 5 [place] [address] documented as of this encounter Visit Diagnoses Not on filedocumented in this encounter Care Teams Assembling Motor Builder Relationship Specialty Start Date End Date Shawn Barber MD [address] [place] [address] PCP - ACO Reach 09/24/22 Shawn Barber MD [address] [facility] 110 [place] [address] PCP - General Internal Medicine 10/22/22WednesdayRandee LPN [address] [facility] 110 [place] [address] Licensed Practical Nurse Family Medicine 12/29/22 06/09/24 Becca Campos LSW Lighting Fixtures Decorator Family Medicine 12/29/22 08/24/24 Hilary Frank, RN Licensed Practical Nurse Family Medicine 06/09/24 07/21/24 Kaylen Moore LPN 07/21/24 documented as of this encounter
--- OUTSIDE RECORDS SUMMARY | 2024-10-12 14:21 | XMS_ITS | Encounter Summary ---
Author Organization [facility] Address [address] [facility] [place] [address] Care Team Providers Care Route Sales Delivery Driver Name Role Phone Shawn Barber MD Unavailable [phone] Shawn Barber MD Primary Care Provider [phone] Wednesday, Randee TEJEDA Unavailable [phone] Becca Campos GEAR LAPPER Unavailable [phone] Hilary Frank RN Unavailable [phone] Kaylen Moore FELT CHECKER Unavailable Unavailable Encounter Details Date Type Department Care Team (Late st Contact Info) Description 12/14/2023 Abstract [facility] [address] [facility] 110 [place] [phone] Shawn Barber MD 112 [facility] 110 [place] [address] Social History Tobacco Use Types [...] attend chur ch or mosque services? Never 12/06/2023 Do you belong to [...] Recorded Patient Health Questionnaire-2 Score 1 11/25/2022 [facility] - Occupational Stress Questionnaire Answer [...] any time in the past 12 m [facility], were you homeless or living in a [place] [facility] [place] facility (including now)? No 12/06/2023 Comments Unknown Sex [...] [address] [place] [address] Shawn Braber MD [address] [place] [address] 10/26/2024 2:50 PM EDT Office Visit [facility] [address] [place] [address] Colt Mendieta, DPM 3006 [facility] 5 [place] [address] documented as of this encounter Visit Diagnoses Not on filedocumented in this encounter Care Teams Route Sales Delivery Driver Relationship Specialty Start Date End Date Shawn Barber MD [address] [place] [address] PCP - ACO Reach 09/24/22 Shawn Barber MD [address] [place] [address] PCP - General Internal Medicine 10/22/22WednesdayRandee LPN [address] [place] [address] Licensed Practical Nurse Family Medicine 12/29/22 06/09/24 Becca Campos LSW Preparation Center Coordinator Family Medicine 12/29/22 08/24/24 Hilary Frank, RN Licensed Practical Nurse Family Medicine 06/09/24 07/21/24 Kaylen Moore LPN 07/21/24 documented as of this encounter
--- OUTSIDE RECORDS SUMMARY | 2024-10-12 14:21 | XMS_ITS | Encounter Summary ---
Author Organization [facility] Address [address] [facility] [place] [address] Care Team Providers Care Police Patrol Lieutenant Name Role Phone Shawn Barber MD Unavailable [phone] Shawn Barber MD Primary Care Provider [phone] Wednesday, Randee SEGALN Unavailable [phone] Becca Campos REPAIR ARMATURE WINDER HELPER Unavailable [phone] Hilary Frank RN Unavailable [phone] Kaylen Moore COLLAR CUTTER Unavailable Unavailable Encounter Details Date Type Department Care Team (Late st Contact Info) Description 03/15/2023 Abstract [facility] [address] [facility] 110 [place] [address] Shawn Barber MD 112 [facility] 110 [place] [address] Social History Tobacco Use Types [...] often do you attend chur ch or christian services? Never 01/29/2023 Do you belong to any clubs o r organizations such as sabianism groups, unions, fraternal or athletic groups, or [...] Recorded Patient Health Questionnaire-2 Score 1 11/25/2022 [facility] [place] of Occupat ional Health - Occupational Stress [...] place to sleep or slept in a care home (including now)? No 01/29/2023 Housing Stability Vital [...] Visit [facility] [address] [facility] 110 [place] [address] Shawn Barber MD [address] [facility] 110 [place], [place] [address] 10/26/2024 2:50 PM EDT Office Visit [facility] [address] [place] [address] Colt Mendieta, DPM 3006 [facility] 5 [place] [address] documented as of this encounter Visit Diagnoses Not on filedocumented in this encounter Care Teams Police Patrol Lieutenant Relationship Specialty Start Date End Date Shawn Barber MD [address] [place] [address] PCP - ACO Reach 09/24/22 Shawn Barber MD [address] [facility] 110 [place] [address] PCP - General Internal Medicine 10/22/22WednesdayRandee LPN [address] [facility] 110 [place] [address] Licensed Practical Nurse Family Medicine 12/29/22 06/09/24 Becca aCmpos LSW It Security Specialist Family Medicine 12/29/22 08/24/24 Hilary Frank, RN Licensed Practical Nurse Family Medicine 06/09/24 07/21/24 Kaylen Moore LPN 07/21/24 documented as of this encounter
--- OUTSIDE RECORDS SUMMARY | 2024-10-12 14:21 | XMS_ITS | Encounter Summary ---
Author Organization [facility] Address [address] [facility] [place] [address] Care Team Providers Care Radiator Fitter Name Role Phone Shawn Barber MD Unavailable [phone] Shawn Barber MD Primary Care Provider [phone] Wednesday, Randee SEGALN Unavailable [phone] Becca Campos LABORER YARD Unavailable [phone] Hilary Frank RN Unavailable [phone] Kaylen Moore SSIS SSRS DEVELOPER Unavailable Unavailable Encounter Details Date Type Department Care Team (Late st Contact Info) Description 03/10/2023 Abstract [facility] [address] [facility] 110 [place] [id number] Shawn Barber MD 112 [facility] 110 [place] [address] Social History Tobacco Use Types [...] often do you attend chur ch or gnosticism services? Never 01/29/2023 Do you belong to any clubs o r organizations such as restorationism groups, unions, fraternal or athletic groups, or [...] Recorded Patient Health Questionnaire-2 Score 1 11/25/2022 [facility] [place] of Occupat ional Health - Occupational Stress [...] place to sleep or slept in a group home (including now)? No 01/29/2023 Housing Stability [...] Visit [facility] [address] [facility] 110 [place] [address] Shawn Barber MD [address] [facility] 110 [place], [place] [address] 10/26/2024 2:50 PM EDT Office Visit [facility] [address] [place] [address] Colt Mendieta, DPM [address] [facility] 5 [place] [address] documented as of this encounter Visit Diagnoses Not on filedocumented in this encounter Care Teams Radiator Fitter Relationship Specialty Start Date End Date Shawn Barber MD [address] [place] [address] PCP - ACO Reach 09/24/22 Shawn Barber MD [address] [facility] 110 [place] [address] PCP - General Internal Medicine 10/22/22WednesdayRandee LPN [address] [facility] 110 [place] [address] Licensed Practical Nurse Family Medicine 12/29/22 06/09/24 Becca Campos LSW Senior Quality Control Technician Family Medicine 12/29/22 08/24/24 Hilary Frank, RN Licensed Practical Nurse Family Medicine 06/09/24 07/21/24 Kaylen Moore LPN 07/21/24 documented as of this encounter
--- OUTSIDE RECORDS SUMMARY | 2024-10-12 14:21 | XMS_ITS | Encounter Summary ---
Author Organization [facility] Address [address] [facility] [place] [address] Care Team Providers Care Gaming Associate Name Role Phone Shawn Barber MD Unavailable [phone] Shawn Barber MD Primary Care Provider [phone] Wednesday, Randee TEJEDA Unavailable [phone] Becca Campos MANAGER INFORMATION Unavailable [phone] Hilary Frank RN Unavailable [phone] Kaylen Moore LINKING MACHINE OPERATOR Unavailable Unavailable Encounter Details Date Type Department Care Team (Late st Contact Info) Description 04/20/2024 Abstract [facility] [address] [facility] 110 [place] [id number] Shawn Barber MD 112 [facility] 110 [place], [place] [address] Social History Tobacco Use Types Packs/Day Years [...] often do you attend chur ch or sabianism services? Never 12/06/2023 Do you belong to any clubs o r organizations such as mormonism groups, unions, fraternal or athletic groups, or [...] Recorded Patient Health Questionnaire-2 Score 1 11/25/2022 [facility] - Occupational Stress Questionnaire [...] to sleep or slept in a senior care (including now)? No 01/29/2023 Housing Stability Vital Sign Answer Mendez e Recorded In the last 12 months, was t here a time when you were not able to pay the mortgage or rent on time? No 12/06/2023 In the past 12 months, how m any times have you moved where you were living? 0 12/06/2023 At any time in the past 12 m [facility], were you homeless or living in a senior care (including now)? No 12/06/2023 Comments Unknown Sex [...] [address] [place] [address] Shawn Barber MD [address] [place] [address] 10/26/2024 2:50 PM EDT Office Visit [facility] [address] [place] [address] Colt Mendieta, DPM [address]006 [facility] 5 [place] [address] documented as of this encounter Visit Diagnoses Not on filedocumented in this encounter Care Teams Gaming Associate Relationship Specialty Start Date End Date Shawn Barber MD [address] [place] [address] PCP - ACO Reach 09/24/22 Shawn Barber MD [address] [place] [address] PCP - General Internal Medicine 10/22/22WednesdayRandee LPN [address] [place] [address] Licensed Practical Nurse Family Medicine 12/29/22 06/09/24 Becca Campos LSW Waste Reduction Coordinator Family Medicine 12/29/22 08/24/24 Hilary Frank, RN Licensed Practical Nurse Family Medicine 06/09/24 07/21/24 Kaylen Moore LPN 07/21/24 documented as of this encounter
--- OUTSIDE RECORDS SUMMARY | 2024-10-12 14:21 | XMS_ITS | Encounter Summary ---
Author Organization [facility] Address [address] [facility] [place] [address] Care Team Providers Care Automotive Welder Name Role Phone Shawn Barber MD Unavailable [phone] Shawn Barber MD Primary Care Provider [phone] Wednesday, Randee TEJEDA Unavailable [phone] Becca Campos MEDICATION ASSISTANT Unavailable [phone] Hilary Frank RN Unavailable [phone] Kaylen Moore ELECTROPHYSIOLOGY TECHNICIAN Unavailable Unavailable Encounter Details Date Type Department Care Team (Late st Contact Info) Description 12/09/2023 Abstract [facility] [address] [facility] 110 [place] [id number] Shawn Barber MD 112 [facility] 110 [place] [address] Social History Tobacco Use Types [...] attend chur ch or islam services? Never 12/06/2023 Do you belong to any clubs o r organizations such as judaism groups, unions, fraternal or athletic groups, or [...] Recorded Patient Health Questionnaire-2 Score 1 11/25/2022 [facility] - [...] place to sleep or slept in a custodial (including now)? No 01/29/2023 Housing Stability Vital Sign Answer Mendez e Recorded In the last 12 months, was t here a time when you were not able to pay the mortgage or rent on time? No 12/06/2023 In the past 12 months, how m any times have you moved where you were living? 0 12/06/2023 At any time in the past 12 m [facility], were you homeless or living in a custodial (including now)? No 12/06/2023 Comments Unknown Sex [...] [address] [place] [address] Shawn Barber MD [address] [place] [address] 10/26/2024 2:50 PM EDT Office Visit [facility] [address] [place] [address] Colt Mendieta, DPM 3006 [facility] 5 [place] [address] documented as of this encounter Visit Diagnoses Not on filedocumented in this encounter Care Teams Automotive Welder Relationship Specialty Start Date End Date Shawn Barber MD [address] [place] [address] PCP - ACO Reach 09/24/22 Shawn Barber MD [address] [place] [address] PCP - General Internal Medicine 10/22/22WednesdayRandee LPN [address] [place] [address] Licensed Practical Nurse Family Medicine 12/29/22 06/09/24 Becca Campos LSW Lead Business Analyst Family Medicine 12/29/22 08/24/24 Hilary Frank, RN Licensed Practical Nurse Family Medicine 06/09/24 07/21/24 Kaylen Moore LPN 07/21/24 documented as of this encounter
--- OUTSIDE RECORDS SUMMARY | 2024-10-12 14:21 | XMS_ITS | Patient Health Record ---
Author Organization [facility] Address [address] [place] [address] [place] [address] Care Team Providers Care Certified Lactation Counselor Name Role Phone [place] Primary Care Provider UnavailAlexandro Gan Unavailable [phone] Reason For Referral No Information Plan Of Treatment No Information Insurance Providers Payer Name Payer Address Payer Phone Subscriber Number Group Number Insured Name Patient Relationship to Insured Coverage Start Date Coverage End Date Medicare Part B J-15 Part [facility] [place] [address] [place] [address] [id number] Kate Moore Self - patient is the insured [place] [address] [id number] Kate Moore Self - patient is the insured Medicaid [place] D[employer] of [employer] [address] [place] [address] [id number] Kate Moore Self - patient is the insured
--- OUTSIDE RECORDS SUMMARY | 2024-10-12 14:21 | XMS_ITS | Encounter Summary ---
Author Organization [facility] Address [address] [facility] [place] [address] Care Team Providers Care Crane Assembler Name Role Phone Shawn Barber MD Unavailable [phone] Shawn Barber MD Primary Care Provider [phone] Wednesday, Randee TEJEDA Unavailable [phone] Becca Campos CLERK RATING Unavailable [phone] Hilary Frank RN Unavailable [phone] Kaylen Moore CARDIOLOGY NURSE PRACTITIONER Unavailable Unavailable Encounter Details Date Type Department Care Team (Late st Contact Info) Description 04/14/2024 Abstract [facility] [address] [facility] 110 [place] [id number] Shawn Barber MD 112 [facility] 110 [place], [place] [address] Social History Tobacco Use Types Packs/Day Years [...] often do you attend chur ch or catholic services? Never 12/06/2023 Do you belong to any clubs o r organizations such as amish groups, unions, fraternal or athletic groups, or [...] Recorded Patient Health Questionnaire-2 Score 1 11/25/2022 [facility] - Occupational Stress [...] any time in the past 12 m [facility], were you homeless or living in a alf (including now)? No 12/06/2023 Comments Unknown Sex [...] [address] [place] [address] Shawn Barber MD [address] [place] [address] 10/26/2024 2:50 PM EDT Office Visit [facility] [address] [place] [address] Colt Mendieta, DPM 3006 [facility] 5 [place] [address] documented as of this encounter Visit Diagnoses Not on filedocumented in this encounter Care Teams Crane Assembler Relationship Specialty Start Date End Date Shawn Barber MD [address] [place] [address] PCP - ACO Reach 09/24/22 Shawn Barber MD [address] [place] [address] PCP - General Internal Medicine 10/22/22WednesdayRandee LPN [address] [place] [address] Licensed Practical Nurse Family Medicine 12/29/22 06/09/24 Becca Campos LSW Commercial Construction Superintendent Family Medicine 12/29/22 08/24/24 Hilary Frank, RN Licensed Practical Nurse Family Medicine 06/09/24 07/21/24 Kaylen Moore LPN 07/21/24 documented as of this encounter
--- OUTSIDE RECORDS SUMMARY | 2024-10-12 14:21 | XMS_ITS | Encounter Summary ---
Author Organization [facility] Address [address] [facility] [place] [address] Care Team Providers Care Art Tracer Name Role Phone Shawn Barber MD Unavailable [phone] Shawn Barber MD Primary Care Provider [phone] Wednesday, Randee TEJEDA Unavailable [phone] Becca Campos TOE POUNDER Unavailable [phone] Hilary Frank RN Unavailable [phone] Kaylen Moore WAREHOUSE ORDER PULLER Unavailable Unavailable Encounter Details Date Type Department Care Team (Late st Contact Info) Description 12/10/2023 Abstract [facility] [address] [facility] 110 [place] [address] Shawn Barber MD 112 [facility] 110 [place], [place] [address] Social History Tobacco Use Types Packs/Day Years [...] often do you attend chur ch or sikhism services? Never 12/06/2023 Do you belong to any clubs o r organizations such as jehovah's witness groups, unions, fraternal or athletic groups, or [...] 1 11/25/2022 [facility] - Occupational Stress Questionnaire [...] any time in the past 12 m [facility], were you homeless or living in a group home (including now)? No 12/06/2023 Comments Unknown Sex [...] [address] [place] [address] Shawn Barber MD [address] [place] [address] 10/26/2024 2:50 PM EDT Office Visit [facility] [address] [place] [address] Colt Mendieta, DPM 3006 [facility] 5 [place] [address] documented as of this encounter Visit Diagnoses Not on filedocumented in this encounter Care Teams Art Tracer Relationship Specialty Start Date End Date Shawn Barber MD [address] [place] [address] PCP - ACO Reach 09/24/22 Shawn Barber MD [address] [place] [address] PCP - General Internal Medicine 10/22/22WednesdayRandee LPN [address] [place] [address] Licensed Practical Nurse Family Medicine 12/29/22 06/09/24 Becca Campos LSW Aerial Gunner Family Medicine 12/29/22 08/24/24 Hilary Frank, RN Licensed Practical Nurse Family Medicine 06/09/24 07/21/24 Kaylen Moore LPN 07/21/24 documented as of this encounter
--- OUTSIDE RECORDS SUMMARY | 2024-10-12 14:21 | XMS_ITS | Encounter Summary ---
Author Organization [facility] Address [address] [place] [address] Care Team Providers Care Iron Miner Blasting Name Role Phone Shawn Barber MD Unavailable [phone] Shawn Barber MD Primary Care Provider [phone] Wednesday, Randee TEJEDA Unavailable [phone] Becca Campos CROWN PERFORATOR OPERATOR Unavailable [phone] Hilary Frank RN Unavailable [phone] Kaylen Moore ETHANOL MAINTENANCE MECHANIC Unavailable Unavailable Encounter Details Date Type Department Care Team (Late st Contact Info) Description 04/21/2024 Abstract [facility] [address] [facility] 110 [place] [address] Shawn Barber MD 112 [facility] 110 [place] [address] Social History Tobacco Use Types [...] any clubs o r organizations such as latter day groups, unions, fraternal or athletic groups, or [...] Patient Health Questionnaire-2 Score 1 11/25/2022 [facility] [...] place to sleep or slept in a jail (including now)? No 01/29/2023 Housing Stability Vital Sign Answer Mendez e Recorded In the last 12 months, was t here a time when you were not able to pay the mortgage or rent on time? No 12/06/2023 In the past 12 months, how m any times have you moved where you were living? 0 12/06/2023 At any time in the past 12 m [facility], were you homeless or living in a jail (including now)? No 12/06/2023 Comments Unknown Sex [...] [address] [place] [address] Shawn Barber MD [address] [place] [address] 10/26/2024 2:50 PM EDT Office Visit [facility] [address] [place] [address] Colt Mendieta, DPM 3006 [facility] 5 [place] [address] documented as of this encounter Visit Diagnoses Not on filedocumented in this encounter Care Teams Iron Miner Blasting Relationship Specialty Start Date End Date Shawn Barber MD [address] [place] [address] PCP - ACO Reach 09/24/22 Shawn Barber MD [address] [place] [address] PCP - General Internal Medicine 10/22/22WednesdayRandee LPN [address] [place] [address] Licensed Practical Nurse Family Medicine 12/29/22 06/09/24 Becca Campos LSW Public Health Aide Family Medicine 12/29/22 08/24/24 Hilary Frank, RN Licensed Practical Nurse Family Medicine 06/09/24 07/21/24 Kaylen Moore LPN 07/21/24 documented as of this encounter
--- OUTSIDE RECORDS SUMMARY | 2024-10-12 14:21 | XMS_ITS | Encounter Summary ---
Author Organization [facility] Address [address] [facility] [place] [address] Care Team Providers Care News Correspondent Name Role Phone Shawn Barber MD Unavailable [phone] Shawn Barber MD Primary Care Provider [phone] Wednesday, Randee SEGALN Unavailable [phone] Becca Campos LEACH CELL OPERATOR Unavailable [phone] Hilary Frank RN Unavailable [phone] Kaylen Moore TRANSIT PROOF MACHINE OPERATOR Unavailable Unavailable Encounter Details Date Type Department Care Team (Late st Contact Info) Description 12/09/2023 Orders Only [facility] [address] [place] [address] Unallocated, Noms Provider, [address] [facility] [place] [address] Social History Tobacco Use Types Packs/Day Years [...] attend chur ch or faith services? Never 12/06/2023 Do you belong to any clubs o r organizations such as quaker groups, unions, fraternal or athletic groups, or [...] Recorded Patient Health Questionnaire-2 Score 1 11/25/2022 [facility] Occupat ional Health - Occupational Stress [...] any time in the past 12 m [facility], were you homeless or living [...] [address] [place] [address] Shawn Barber MD [address] [place] [address] 10/26/2024 2:50 PM EDT Office Visit [facility] [address] [place] [address] Colt Mendieta DPM 3006 [facility] 5 [place] [address] documented as of this encounter Procedures Procedure Name Priority Date/Time Associated Diagnosis Comments SCANNED LABS Routine 12/09/2023 2:35 PM EDT documented in this encounter Results * SCANNED LABS (12/09/2023 2:35 PM EDT) us Noms Provider Unallocated MD LAB CHG PERFORMABLE S Final Result documented in this encounter Visit Diagnoses Not on filedocumented in this encounter Care Teams News Correspondent Relationship Specialty Start Date End Date Shawn Barber MD [address] [place] [address] PCP - ACO Reach 09/24/22 Shawn Barber MD [address] [place] [address] PCP - General Internal Medicine 10/22/22WednesdayRandee LPN [address] [place] [address] Licensed Practical Nurse Family Medicine 12/29/22 06/09/24 Becca Campos LSW Detail Technician Family Medicine 12/29/22 08/24/24 Hilary Frank, RN Licensed Practical Nurse Family Medicine 06/09/24 07/21/24 Kaylen Moore LPN 07/21/24 documented as of this encounter
--- OUTSIDE RECORDS SUMMARY | 2024-10-12 14:21 | XMS_ITS | Encounter Summary ---
Author Organization [facility] Address [address] [facility] [place] [address] Care Team Providers Care Washer Off Name Role Phone Shawn Barber MD Unavailable [phone] Shawn Barber MD Primary Care Provider Wednesday, Randee SEGALN Unavailable [phone] Becca Campos LEGAL ENTITY CONTROLLER Unavailable [phone] Hilary Frank RN Unavailable [phone] Kaylen Moore FBI PROFILER Unavailable Unavailable Encounter Details Date Type Department Care Team (Late Contact Info) Description 11/13/2022 Abstract [facility] [address] [facility] 110 [place] [address] Shawn Barber MD 112 [facility] 110 [place] [address] Social History Tobacco Use Types [...] [address] [place] [address] Shawn Barber MD [address] [place] [address] 10/26/2024 2:50 PM EDT Office Visit [facility] [address] [place] [address] Colt Mendieta, DPChris 3006 [facility] 5 [place] [address] documented as of this encounter Visit Diagnoses Not on filedocumented in this encounter Care Teams Washer Off Relationship Specialty Start Date End Date Sahwn Barber MD [address] [place] [address] PCP - ACO Reach 09/24/22 Shawn Barber MD [address] [place] [address] PCP - General Internal Medicine 10/22/22WednesdayRandee LPN [address] [place] [address] Licensed Practical Nurse Family Medicine 12/29/22 06/09/24 Becca Campos LSW Vehicle Upholsterer Family Medicine 12/29/22 08/24/24 Hilary Frank, RN Licensed Practical Nurse Family Medicine 06/09/24 07/21/24 Kaylen Moore LPN 07/21/24 documented as of this encounter
--- OUTSIDE RECORDS SUMMARY | 2024-10-12 14:21 | XMS_ITS | Encounter Summary ---
Author Organization [facility] Address [address] [facility] [place] [address] Care Team Providers Care Reinforcing Iron Worker Helper Name Role Phone Shawn Barber MD Unavailable [phone] Shawn Barber MD Primary Care Provider [phone] Wednesday, Randee TEJEDA Unavailable [phone] Becca Campos SUPERVISING LIBRARIAN Unavailable [phone] Hilary Frank RN Unavailable [phone] Kaylen Moore PHARMACOVIGILANCE SPECIALIST Unavailable Unavailable Encounter Details Date Type Department Care Team (Late st Contact Info) Description 12/06/2023 Abstract [facility] [address] [facility] 110 [place] [id number] Shawn Barber MD 112 [facility] 110 [place], [place] [address] Social History Tobacco Use Types Packs/Day Years [...] attend chur ch or jew services? Never 12/06/2023 Do you belong to any clubs o r organizations such as protestant groups, unions, fraternal or athletic groups, or [...] Patient Health Questionnaire-2 Score 1 11/25/2022 [facility] [...] any time in the past 12 m [facility], were you homeless or living in a custodial (including now)? No 12/06/2023 Comments Unknown Sex and Gender Information Value Date Recorded Sex Assigned at Not on file Legal Sex Female 6:46 PM EDT Gender Identity Not on file Sexual Orientation Not on file documented as of this encounter Functional Status * Audit-C Score Answer Date of Assessment Author 0 12/06/2023 2:15 PM EDT Wednesday, Adolfo murphy LPN * Question Answer Date of Assessment Author Q1: How often do you have a drink containing alcohol? Never 12/06/2023 2:15 PM EDT LaureanoRandee LP N Q2: How many drinks containing alcohol do you have on a typical day when you are drinking? Patient does not drink 12/06/2023 2:15 PM EDT Randee Tinsley LPN Q3: How often do you have six or more drinks on one occasion? Never 12/06/2023 2:15 PM EDT WednesdayRandee LP N documented as of this encounter Plan of Treatment Upcoming Encounters Date Type Department Care Team (Late st Contact Info) Description 10/23/2024 2:00 PM EDT Office Visit [facility] [address] [place] [address] Shawn Barber MD [address] [place] [address] 10/26/2024 2:50 PM EDT Office Visit [facility] [address] [place] [address] Colt Mendieta, DPM 3006 [facility] 5 [place] [address] documented as of this encounter Visit Diagnoses Not on filedocumented in this encounter Care Teams Reinforcing Iron Worker Helper Relationship Specialty Start Date End Date Shawn Barber MD [address] [place] [address] PCP - ACO Reach 09/24/22 Shawn Barber MD [address] [place] [address] PCP - General Internal Medicine 10/22/22 Randee Tinsley LPN [address] [place] [address] Licensed Practical Nurse Family Medicine 12/29/22 06/09/24 Becca Campos LSW Fashion Supervisor Family Medicine 12/29/22 08/24/24 Hilary Frank, RN Licensed Practical Nurse Family Medicine 06/09/24 07/21/24 Kaylen Moore LPN 07/21/24 documented as of this encounter
--- OUTSIDE RECORDS SUMMARY | 2024-10-12 14:21 | XMS_ITS | Encounter Summary ---
Author Organization [facility] Address [address] [facility] [place] [address] Care Team Providers Care Building Construction Foreman Name Role Phone Shawn Barber MD Unavailable [phone] Shawn Barber MD Primary Care Provider Wednesday, Randee SEGALN Unavailable [phone] Becca Campos CUSTOMER RETENTION SPECIALIST Unavailable [phone] Hilary Frank RN Unavailable [phone] Kaylen Moore BENDING FRAME OPERATOR Unavailable Unavailable Encounter Details Date Type Department Care Team (Late Contact Info) Description 11/19/2022 Abstract [facility] [address] [facility] 110 [place] [id number] Shawn Barber MD 112 [facility] 110 [place] [address] Social History Tobacco Use Types Packs/Day Years Used Date Smoking Tobacco: Every Day Cigarettes Smokeless Tobacco: Never Alcohol Use Standard Drinks/Week Comments Not Currently 0 (1 standard drink = 0.6 oz pur e alcohol) PHQ-2 Answer Date Recorded Patient Health Questionnaire-2 Score 0 11/23/2022 Comments Unknown Sex and Gender Information Value [...] [address] [facility] [place] [address] Shawn Barber MD [address] [facility] [place] [address] 10/26/2024 2:50 PM EDT Office Visit [facility] [address] [facility] [place] [address] Colt Mendieta, DPChris [address]006 [facility] 5 [place] [address] documented as of this encounter Visit Diagnoses Not on filedocumented in this encounter Care Teams Building Construction Foreman Relationship Specialty Start Date End Date Shawn Barber MD [address] [place] [address] PCP - ACO Reach 09/24/22 Shawn Barber MD [address] [facility] [place] [address] PCP - General Internal Medicine 10/22/22WednesdayRandee LPN [address] [place] [address] Licensed Practical Nurse Family Medicine 12/29/22 06/09/24 Becca Campos LSW Route Vending Machine Servicer Family Medicine 12/29/22 08/24/24 Hilary Frank, RN Licensed Practical Nurse Family Medicine 06/09/24 07/21/24 Kaylen Moore LPN 07/21/24 documented as of this encounter
--- OUTSIDE RECORDS SUMMARY | 2024-10-12 14:21 | XMS_ITS | Encounter Summary ---
Author Organization [facility] Address [address] [facility] [place] [address] Care Team Providers Care Physician Non Invasive Cardiologist Name Role Phone Shawn Barber MD Unavailable [phone] Shawn Barber MD Primary Care Provider [phone] Wednesday, Randee SEGALN Unavailable [phone] Becca Campos CREW LEADER/CONTROL ROOM OPERATOR Unavailable [phone] Hilary Frank RN Unavailable [phone] Kaylen Moore FIELD MARKETING COORDINATOR Unavailable Unavailable Encounter Details Date Type Department Care Team (Late st Contact Info) Description 03/15/2023 Abstract [facility] [address] [facility] 110 [place] [address] Shawn Barber MD 112 [facility] 110 [place] [address] Social History Tobacco Use Types [...] often do you attend chur ch or protestant services? Never 01/29/2023 Do you belong to [...] Recorded Patient Health Questionnaire-2 Score 1 11/25/2022 [facility] of Occupat ional Health - Occupational Stress [...] Visit [facility] [address] [facility] 110 [place] [address] Shawn Barber MD [address] [facility] 110 [place], [place] [address] 10/26/2024 2:50 PM EDT Office Visit [facility] [address] [place] [address] Colt Mendieta, DPM [address]006 [facility] 5 [place] [address] documented as of this encounter Visit Diagnoses Not on filedocumented in this encounter Care Teams Physician Non Invasive Cardiologist Relationship Specialty Start Date End Date Shawn Barber MD [address] [place] [address] PCP - ACO Reach 09/24/22 Shawn Barber MD [address] [facility] 110 [place] [address] PCP - General Internal Medicine 10/22/22WednesdayRandee LPN [address] [facility] 110 [place] [address] Licensed Practical Nurse Family Medicine 12/29/22 06/09/24 Becca Campos LSW Sand Hauler Family Medicine 12/29/22 08/24/24 Hilary Frank, RN Licensed Practical Nurse Family Medicine 06/09/24 07/21/24 Kaylen Moore LPN 07/21/24 documented as of this encounter
--- OUTSIDE RECORDS SUMMARY | 2024-10-12 14:21 | XMS_ITS | Encounter Summary ---
Author Organization [facility] Address [address] [facility] [place] [address] Care Team Providers Care Clay Puddler Name Role Phone Shawn Barber MD Unavailable [phone] Shawn Barber MD Primary Care Provider [phone] Wednesday, Randee TEJEDA Unavailable [phone] Becca Campos RANGE MECHANIC Unavailable [phone] Hilary Frank RN Unavailable [phone] Kaylen Moore LPN Unavailable Unavailable Encounter Details Date Type Department Care Team (Late st Contact Info) Description 12/02/2023 Orders Only [facility] [address] [facility] [place] [address] Ginger Jose LPN [address] [place] [address] Age-related osteoporosis without current pathological fracture Social History Tobacco Use Types Packs/Day Years [...] often do you attend chur ch or tenriism services? Never 12/06/2023 Do you belong to any clubs o r organizations such as hindu groups, unions, fraternal or athletic groups, or [...] Recorded Patient Health Questionnaire-2 Score 1 11/25/2022 [facility] of Occupat ional Health - Occupational Stress [...] place to sleep or slept in a detention (including now)? No 01/29/2023 Housing Stability Vital Sign Answer Mendez e Recorded In the last 12 months, was t here a time when you were not able to pay the mortgage or rent on time? No 12/06/2023 In the past 12 months, how m any times have you moved where you were living? 0 12/06/2023 At any time in the past 12 m [facility], were you homeless or living in a detention (including now)? No 12/06/2023 Comments Unknown Sex and Gender Information Value Date Recorded Sex Assigned at Not on file Legal Sex Female 6:46 PM EDT Gender Identity Not on file Sexual Orientation Not on file documented as of this encounter Plan of Treatment Upcoming Encounters Date Type Department Care Team (Late st Contact Info) Description 10/23/2024 2:00 PM EDT Office Visit [facility] [address] [place] [address] Shawn Barber MD [address] [place] [address] 10/26/2024 2:50 PM EDT Office Visit [facility] [address] [facility] [place] [address] Colt Mendieta, DPChris 3006 [facility] 5 [place] [address] documented as of this encounter Visit Diagnoses Diagnosis Age-related osteoporosis without current pathological fracture documented in this encounter Care Teams Clay Puddler Relationship Specialty Start Date End Date Shawn Barber MD [address] [facility] 110 [place] [address] PCP - ACO Reach 09/24/22 Shawn Barber MD [address] [facility] 110 [place] [address] PCP - General Internal Medicine 10/22/22WednesdayRandee LPN [address] [place] [address] Licensed Practical Nurse Family Medicine 12/29/22 06/09/24 Becca Campos LSW Skilled Trades Teacher Family Medicine 12/29/22 08/24/24 Hilary Frank, RN Licensed Practical Nurse Family Medicine 06/09/24 07/21/24 Kaylen Moore LPN 07/21/24 documented as of this encounter
--- OUTSIDE RECORDS SUMMARY | 2024-10-12 14:21 | XMS_ITS | Encounter Summary ---
Author Organization [facility] Address [address] [facility] [place] [address] Care Team Providers Care Measurement Supervisor Name Role Phone Shawn Barber MD Unavailable [phone] Shawn Barber MD Primary Care Provider [phone] Wednesday, Randee TEJEDA Unavailable [phone] Becca Campos HEAT TREAT FURNACE OPERATOR Unavailable [phone] Hilary Frank RN Unavailable [phone] Kaylen Moore CHILD PROTECTION SPECIALIST Unavailable Unavailable Encounter Details Date Type Department Care Team (Late st Contact Info) Description 12/14/2023 Abstract [facility] [address] [facility] 110 [place] [id number] Shawn Barber MD 112 [facility] 110 [place] [address] Social History Tobacco Use Types [...] often do you attend chur ch or yarsani services? Never 12/06/2023 Do you belong to any clubs o r organizations such as methodist groups, unions, fraternal or athletic groups, or [...] Recorded Patient Health Questionnaire-2 Score 1 11/25/2022 [facility] - Occupational Stress Questionnaire [...] any time in the past 12 m [facility], were you homeless or living in a care home (including now)? No 12/06/2023 Comments Unknown [...] [address] [facility] [place] [address] Shawn Barber MD [address] [place] [address] 10/26/2024 2:50 PM EDT Office Visit [facility] [address] [facility] [place] [address] Colt Mendieta, DPM [address] [facility] 5 [place] [address] documented as of this encounter Visit Diagnoses Not on filedocumented in this encounter Care Teams Measurement Supervisor Relationship Specialty Start Date End Date Shawn Barber MD [address] [place] [address] PCP - ACO Reach 09/24/22 Shawn Barber MD [address] [place] [address] PCP - General Internal Medicine 10/22/22WednesdayRandee LPN [address] [place] [address] Licensed Practical Nurse Family Medicine 12/29/22 06/09/24 Becca Campos LSW Microwave Oven Assembler Family Medicine 12/29/22 08/24/24 Hilary Frank, RN Licensed Practical Nurse Family Medicine 06/09/24 07/21/24 Kaylen Moore LPN 07/21/24 documented as of this encounter
--- OUTSIDE RECORDS SUMMARY | 2024-10-12 14:21 | XMS_ITS | Encounter Summary ---
Author Organization [facility] Address [address] [facility] [place] [address] Care Team Providers Care Gas Check Pad Maker Name Role Phone Shawn Barber MD Unavailable [phone] Shawn Barber MD Primary Care Provider [phone] Wednesday, Randee SEGALN Unavailable [phone] Becca Campos JEWEL GAUGER Unavailable [phone] Hilary Frank RN Unavailable [phone] Kaylen Moore RETAIL SALES VITAMIN CONSULTANT Unavailable Unavailable Encounter Details Date Type Department Care Team (Late st Contact Info) Description 03/22/2023 Abstract [facility] [address] [facility] 110 [place] [id number] Shawn Barber MD 112 [facility] 110 [place] [address] Social History Tobacco Use Types [...] often do you attend chur ch or buddhism services? Never 01/29/2023 Do you belong to any clubs o r organizations such as adventism groups, unions, fraternal or athletic groups, or [...] Recorded Patient Health Questionnaire-2 Score 1 11/25/2022 [facility] [place] of Occupat ional Health - Occupational Stress [...] Visit [facility] [address] [facility] 110 [place] [address] Shawn Barber MD [address] [facility] 110 [place], [place] [address] 10/26/2024 2:50 PM EDT Office Visit [facility] [address] [place] [address] Colt Mendieta, DPM 3006 [facility] 5 [place] [address] documented as of this encounter Visit Diagnoses Not on filedocumented in this encounter Care Teams Gas Check Pad Maker Relationship Specialty Start Date End Date Shawn Barber MD [address] [place] [address] PCP - ACO Reach 09/24/22 Shawn Barber MD [address] [facility] 110 [place] [address] PCP - General Internal Medicine 10/22/22WednesdayRandee LPN [address] [facility] 110 [place] [address] Licensed Practical Nurse Family Medicine 12/29/22 06/09/24 Becca Campos LSW Machine Pack Assembler Family Medicine 12/29/22 08/24/24 Hilary Frank, RN Licensed Practical Nurse Family Medicine 06/09/24 07/21/24 Kaylen Moore LPN 07/21/24 documented as of this encounter
--- OUTSIDE RECORDS SUMMARY | 2024-10-12 14:21 | XMS_ITS | Encounter Summary ---
Author Organization [facility] Address [address] [facility] [place] [address] Care Team Providers Care Digital Data Analyst Name Role Phone Shawn Barber MD Unavailable [phone] Shawn Barber MD Primary Care Provider [phone] Wednesday, Randee TEJEDA Unavailable [phone] Becca Campos COMMUNICATION SIGNALS INTELLIGENCE Unavailable [phone] Hilary Frank RN Unavailable [phone] Kaylen Moore POLE PEELING MACHINE OPERATOR HELPER Unavailable Unavailable Encounter Details Date Type Department Care Team (Late st Contact Info) Description 04/18/2024 Abstract [facility] [address] [facility] 110 [place] [id number] Shawn Barber MD 112 [facility] 110 [place] [address] Social History Tobacco Use Types [...] often do you attend chur ch or hinduism services? Never 12/06/2023 Do you belong to any clubs o r organizations such as anabaptism groups, unions, fraternal or athletic groups, or [...] Recorded Patient Health Questionnaire-2 Score 1 11/25/2022 [facility] - Occupational Stress Questionnaire Answer [...] time in the past 12 m [facility], were you homeless or living in [...] [address] [place] [address] Shawn Barber MD [address] [place] [address] 10/26/2024 2:50 PM EDT Office Visit [facility] [address] [place] [address] Colt Mendieta, DPM 3006 [facility] 5 [place] [address] documented as of this encounter Visit Diagnoses Not on filedocumented in this encounter Care Teams Digital Data Analyst Relationship Specialty Start Date End Date Shawn Barber MD [address] [place] [address] PCP - ACO Reach 09/24/22 Shawn Barber MD [address] [place] [address] PCP - General Internal Medicine 10/22/22WednesdayRandee LPN [address] [place] [address] Licensed Practical Nurse Family Medicine 12/29/22 06/09/24 Becca Campos LSW Business Database Analyst Family Medicine 12/29/22 08/24/24 Hilary Frank, RN Licensed Practical Nurse Family Medicine 06/09/24 07/21/24 Kaylen Moore LPN 07/21/24 documented as of this encounter
--- OUTSIDE RECORDS SUMMARY | 2024-10-12 14:21 | XMS_ITS | Encounter Summary ---
Author Organization [facility] Address [address] [facility] [place] [address] Care Team Providers Care Boiler Control Technician Name Role Phone Shawn Barber MD Unavailable [phone] Shawn Barber MD Primary Care Provider [phone] Wednesday, Randee SEGALN Unavailable [phone] Becca Campos CLOTH PRESSER Unavailable [phone] Hilary Frank RN Unavailable [phone] Kaylen Moore NETWORK LIAISON Unavailable Unavailable Encounter Details Date Type Department Care Team (Late st Contact Info) Description 03/15/2023 Abstract [facility] [address] [facility] 110 [place] [id number] Shawn Barber MD 112 [facility] 110 [place] [address] Social History Tobacco Use Types [...] Recorded Patient Health Questionnaire-2 Score 1 11/25/2022 [facility] [place] of Occupat ional Health - Occupational Stress [...] Visit [facility] [address] [facility] 110 [place] [address] Shawn Barber MD [address] [facility] 110 [place], [place] [address] 10/26/2024 2:50 PM EDT Office Visit [facility] [address] [place] [address] Colt Mendieta, DPM 3006 [facility] 5 [place] [address] documented as of this encounter Visit Diagnoses Not on filedocumented in this encounter Care Teams Boiler Control Technician Relationship Specialty Start Date End Date Shawn Barber MD [address] [place] [address] PCP - ACO Reach 09/24/22 Shawn Barber MD [address] [facility] 110 [place] [address] PCP - General Internal Medicine 10/22/22WednesdayRandee LPN [address] [facility] 110 [place] [address] Licensed Practical Nurse Family Medicine 12/29/22 06/09/24 Becca Campos LSW Holter Scanning Technician Family Medicine 12/29/22 08/24/24 Hilary Frank, RN Licensed Practical Nurse Family Medicine 06/09/24 07/21/24 Kaylen Moore LPN 07/21/24 documented as of this encounter
--- OUTSIDE RECORDS SUMMARY | 2024-10-12 14:21 | XMS_ITS | Encounter Summary ---
Author Organization [facility] Address [address] [facility] [place] [address] Care Team Providers Care Warehouse Technician Name Role Phone Shawn Barber MD Unavailable [phone] Shawn Barber MD Primary Care Provider [phone] Wednesday, Randee SEGALN Unavailable [phone] Becca Campos FITNESS CENTRE MANAGER Unavailable [phone] Hilary Frank RN Unavailable [phone] Kaylen Moore FOREX TRADER Unavailable Unavailable Encounter Details Date Type Department Care Team (Late st Contact Info) Description 11/23/2022 Abstract [facility] [address] [facility] 110 [place] [id number] Shawn Barber MD [address] [facility] 110 [place] [address] Social History Tobacco Use Types [...] [address] [place] [address] Shawn Barber MD [address] [place] [address] 10/26/2024 2:50 PM EDT Office Visit [facility] [address] [place] [address] Colt Mendieta DPM 3006 [facility] 5 [place] [address] documented as of this encounter Visit Diagnoses Not on filedocumented in this encounter Care Teams Warehouse Technician Relationship Specialty Start Date End Date Shawn Barber MD [address] [place] [address] PCP - ACO Reach 09/24/22 Shawn Barber MD [address] [place] [address] PCP - General Internal Medicine 10/22/22Wednesday, NIKHIL Jeff [address] [place] [address] Licensed Practical Nurse Family Medicine 12/29/22 06/09/24 Becca Campos LSW Equalizing Saw Operator Family Medicine 12/29/22 08/24/24 Hilary Frank, RN Licensed Practical Nurse Family Medicine 06/09/24 07/21/24 Kaylen Moore LPN 07/21/24 documented as of this encounter
--- OUTSIDE RECORDS SUMMARY | 2024-10-12 14:21 | XMS_ITS | Encounter Summary ---
Author Organization [facility] Address [address] [facility] [place] [address] Care Team Providers Care Mold Blower Name Role Phone Shawn Barber MD Unavailable [phone] Shawn Barber MD Primary Care Provider [phone] Wednesday, Randee TEJEDA Unavailable [phone] Becca Campos TURBINE MEASUREMENTS ENGINEER Unavailable [phone] Hilary Frank RN Unavailable [phone] Kaylen Moore RULING MACHINE SET UP OPERATOR Unavailable Unavailable Encounter Details Date Type Department Care Team (Late st Contact Info) Description 12/29/2023 Abstract [facility] [address] [facility] 110 [place] [address] Shawn Barber MD 112 [facility] 110 [place] [address] Social History Tobacco Use Types [...] often do you attend chur ch or mormon services? Never 12/06/2023 Do you belong to any clubs o r organizations such as voodoo groups, unions, fraternal or athletic groups, or [...] Recorded Patient Health Questionnaire-2 Score 1 11/25/2022 [facility] - [...] time in the past 12 m [facility], were you homeless or living in a chcf (including now)? No 12/06/2023 Comments Unknown Sex [...] [address] [place] [address] Shawn Barber MD [address] [place] [address] 10/26/2024 2:50 PM EDT Office Visit [facility] [address] [place] [address] Colt Mendieta, DPM 3006 [facility] 5 [place] [address] documented as of this encounter Visit Diagnoses Not on filedocumented in this encounter Care Teams Mold Blower Relationship Specialty Start Date End Date Shawn Barber MD [address] [place] [address] PCP - ACO Reach 09/24/22 Shawn Barber MD [address] [place] [address] PCP - General Internal Medicine 10/22/22WednesdayRandee LPN [address] [place] [address] Licensed Practical Nurse Family Medicine 12/29/22 06/09/24 Becca Campos LSW Mill Controller Family Medicine 12/29/22 08/24/24 Hilary Frank, RN Licensed Practical Nurse Family Medicine 06/09/24 07/21/24 Kaylen Moore LPN 07/21/24 documented as of this encounter
--- OUTSIDE RECORDS SUMMARY | 2024-10-12 14:21 | XMS_ITS | Encounter Summary ---
Author Organization [facility] Address [address] [facility] [place] [address] Care Team Providers Care Stand Up Comedian Name Role Phone Shawn Barber MD Unavailable [phone] Shawn Barber MD Primary Care Provider [phone] Wednesday, Randee TEJEDA Unavailable [phone] Becca Campos APPAREL SALES ASSOCIATE Unavailable [phone] Hilary Frank RN Unavailable [phone] Kaylen Moore FILER AND SANDER Unavailable Unavailable Encounter Details Date Type Department Care Team (Late st Contact Info) Description 12/10/2023 Abstract [facility] [address] [facility] 110 [place] [address] Shawn Barber MD 112 [facility] 110 [place], [place] [address] Social History Tobacco Use Types Packs/Day Years [...] attend chur ch or alevism services? Never 12/06/2023 Do you belong to [...] Recorded Patient Health Questionnaire-2 Score 1 11/25/2022 [facility] - Occupational Stress Questionnaire [...] place to sleep or slept in a prison (including now)? No 01/29/2023 Housing Stability Vital Sign Answer Mendez e Recorded In the last 12 months, was t here a time when you were not able to pay the mortgage or rent on time? No 12/06/2023 In the past 12 months, how m any times have you moved where you were living? 0 12/06/2023 At any time in the past 12 m [facility], were you homeless or living in a prison (including now)? No 12/06/2023 Comments Unknown Sex [...] [address] [place] [address] Shawn Barber MD [address] [place] [address] 10/26/2024 2:50 PM EDT Office Visit [facility] [address] [place] [address] Colt Mendieta, DPM [address] [facility] 5 [place] [address] documented as of this encounter Visit Diagnoses Not on filedocumented in this encounter Care Teams Stand Up Comedian Relationship Specialty Start Date End Date Shawn Barber MD [address] [place] [address] PCP - ACO Reach 09/24/22 Shawn Barber MD [address] [place] [address] PCP - General Internal Medicine 10/22/22WednesdayRandee LPN [address] [place] [address] Licensed Practical Nurse Family Medicine 12/29/22 06/09/24 Becca Campos LSW Net Developer Consultant Family Medicine 12/29/22 08/24/24 Hilary Frank, RN Licensed Practical Nurse Family Medicine 06/09/24 07/21/24 Kaylen Moore LPN 07/21/24 documented as of this encounter
--- OUTSIDE RECORDS SUMMARY | 2024-10-12 14:21 | XMS_ITS | Encounter Summary ---
Author Organization [facility] Address [address] [facility] [place] [address] Care Team Providers Care Sales Team Member Name Role Phone Shawn Barber MD Unavailable [phone] Shawn Barber MD Primary Care Provider Wednesday, Randee SEGALN Unavailable [phone] Becca Campos RADIO DISPATCHER Unavailable [phone] Hilary Frank RN Unavailable [phone] Kaylen Moore COMPOUNDING AND FINISHING SUPERVISOR Unavailable Unavailable Encounter Details Date Type Department Care Team (Late Contact Info) Description 11/19/2022 Abstract [facility] [address] [facility] 110 [place] [id number] Shawn Barber MD 112 [facility] 110 [place] [address] Social History Tobacco Use Types [...] [address] [place] [address] Shawn Barber MD [address] [place] [address] 10/26/2024 2:50 PM EDT Office Visit [facility] [address] [place] [address] Colt Mendieta, DPChris 3[address] [facility] 5 [place] [address] documented as of this encounter Visit Diagnoses Not on filedocumented in this encounter Care Teams Sales Team Member Relationship Specialty Start Date End Date Shawn Barber MD [address] [place] [address] PCP - ACO Reach 09/24/22 Shawn Barber MD [address] [place] [address] PCP - General Internal Medicine 10/22/22WednesdayRandee LPN [address] [place] [address] Licensed Practical Nurse Family Medicine 12/29/22 06/09/24 Becca Campos LSW Drill Grinder Family Medicine 12/29/22 08/24/24 Hilary Frank, RN Licensed Practical Nurse Family Medicine 06/09/24 07/21/24 Kaylen Moore LPN 07/21/24 documented as of this encounter
--- OUTSIDE RECORDS SUMMARY | 2024-10-12 14:21 | XMS_ITS | Encounter Summary ---
Author Organization [facility] Address [address] [facility] [place] [address] Care Team Providers Care Information Operator Name Role Phone Shawn Barber MD Unavailable Shawn Barber MD Primary Care Provider [phone] Wednesday, Randee TEJEDA Unavailable [phone] Becca Campos MESH CUTTER Unavailable [phone] Hilary Frank RN Unavailable [phone] Kaylen Moore AGILE BUSINESS ANALYST Unavailable Unavailable Encounter Details Date Type Department Care Team (Late st Contact Info) Description 01/04/2024 Abstract [facility] 112 [facility] 110 [place] [id number] Shawn Barber MD 112 [facility] 110 [place] [address] Social History Tobacco [...] often do you attend chur ch or presybeterian services? Never 12/06/2023 Do you belong to [...] Recorded Patient Health Questionnaire-2 Score 1 11/25/2022 [facility] - Occupational Stress Questionnaire [...] any time in the past 12 m [facility], were you homeless or living in a penitentiary (including now)? No 12/06/2023 Comments Unknown Sex [...] [address] [place] [address] Shawn Barber MD [address] [place] [address] 10/26/2024 2:50 PM EDT Office Visit [facility] [address] [place] [address] Colt Mendieta, DPM 3006 [facility] 5 [place] [address] documented as of this encounter Visit Diagnoses Not on filedocumented in this encounter Care Teams Information Operator Relationship Specialty Start Date End Date Shawn Barber MD [address] [place] [address] PCP - ACO Reach 09/24/22 Shawn Barber MD [address] [place] [address] PCP - General Internal Medicine 10/22/22WednesdayRandee LPN [address] [place] [address] Licensed Practical Nurse Family Medicine 12/29/22 06/09/24 Becca Campos LSW Firestop/Containment Worker Family Medicine 12/29/22 08/24/24 Hilary Frank, RN Licensed Practical Nurse Family Medicine 06/09/24 07/21/24 Kaylen Moore LPN 07/21/24 documented as of this encounter
--- OUTSIDE RECORDS SUMMARY | 2024-10-12 14:22 | XMS_ITS | Encounter Summary ---
Author Organization [facility] Address [address] [facility] [place] [address] Care Team Providers Care Betting Clerk Name Role Phone Shawn Barber MD Unavailable [phone] Shawn Barber MD Primary Care Provider [phone] Wednesday, Randee SEGALN Unavailable [phone] Becca Campos RESEARCH INSTRUCTOR Unavailable [phone] Hilary Frank RN Unavailable [phone] Kaylen Moore INSOLE CHANNELER Unavailable Unavailable Encounter Details Date Type Department Care Team (Late st Contact Info) Description 02/22/2023 Abstract [facility] 112 [address] [facility] 110 [place] [id number] Shawn Barber MD 112 [facility] 110 [place] [address] Social History Tobacco Use Types [...] often do you attend chur ch or episcopalian services? Never 01/29/2023 Do you belong to [...] Recorded Patient Health Questionnaire-2 Score 1 11/25/2022 [facility] [place] of Occupat ional Health - Occupational Stress [...] Visit [facility] [address] [facility] 110 [place] [address] Shawn Barber MD [address] [facility] 110 [place], [place] [address] 10/26/2024 2:50 PM EDT Office Visit [facility] [address] [place] [address] Colt Mendieta, DPM 3006 [facility] 5 [place] [address] documented as of this encounter Visit Diagnoses Not on filedocumented in this encounter Care Teams Betting Clerk Relationship Specialty Start Date End Date Shawn Barber MD [address] [place] [address] PCP - ACO Reach 09/24/22 Shawn Barber MD [address] [facility] 110 [place] [address] PCP - General Internal Medicine 10/22/22WednesdayRandee LPN [address] [facility] 110 [place] [address] Licensed Practical Nurse Family Medicine 12/29/22 06/09/24 Becca Campos LSW Awake Overnight Monitor Family Medicine 12/29/22 08/24/24 Hilary Frank, RN Licensed Practical Nurse Family Medicine 06/09/24 07/21/24 Kaylen Moore LPN 07/21/24 documented as of this encounter
--- OUTSIDE RECORDS SUMMARY | 2024-10-12 14:22 | XMS_ITS | Encounter Summary ---
Author Organization [facility] Address [address] [facility] [place] [address] Care Team Providers Care Patient Transport Officer Name Role Phone Shawn Barber MD Unavailable [phone] Shawn Barber MD Primary Care Provider [phone] Wednesday, Randee SEGALN Unavailable [phone] Becca Campos AGENT TELEGRAPHER Unavailable [phone] Hilary Frank RN Unavailable [phone] Kaylen Moore COMMUNICATIONS SPECIALIST Unavailable Unavailable Encounter Details Date Type Department Care Team (Late st Contact Info) Description 03/03/2023 Abstract [facility] 112 [address] [facility] 110 [place] [address] Shawn Barber MD 112 [facility] 110 [place] [address] Social History Tobacco Use Types [...] often do you attend chur ch or advent services? Never 01/29/2023 Do you belong to any clubs o r organizations such as jain groups, unions, fraternal or athletic groups, or [...] Patient Health Questionnaire-2 Score 1 11/25/2022 [facility] [place] of Occupat ional Health - Occupational Stress [...] Visit [facility] [address] [facility] 110 [place] [address] Shawn Barber MD [address] [facility] 110 [place], [place] [address] 10/26/2024 2:50 PM EDT Office Visit [facility] [address] [place] [address] Colt Mendieta, DPM 3006 [facility] 5 [place] [address] documented as of this encounter Visit Diagnoses Not on filedocumented in this encounter Care Teams Patient Transport Officer Relationship Specialty Start Date End Date Shawn Barber MD [address] [place] [address] PCP - ACO Reach 09/24/22 Shawn Barber MD [address] [facility] 110 [place] [address] PCP - General Internal Medicine 10/22/22WednesdayRandee LPN [address] [facility] 110 [place] [address] Licensed Practical Nurse Family Medicine 12/29/22 06/09/24 Becca Campos LSW Extractive Metallurgist Family Medicine 12/29/22 08/24/24 Hilary Frank, RN Licensed Practical Nurse Family Medicine 06/09/24 07/21/24 Kaylen Moore LPN 07/21/24 documented as of this encounter
--- OUTSIDE RECORDS SUMMARY | 2024-10-12 14:22 | XMS_ITS | Encounter Summary ---
Author Organization [facility] Address [address] [facility] [place] [address] Care Team Providers Care Retirement Village Manager Name Role Phone Shawn Barber MD Unavailable [phone] Shawn Barber MD Primary Care Provider [phone] Wednesday, Randee SEGALN Unavailable [phone] Becca Campos CHIEF NURSING OFFICER Unavailable [phone] Hilary Frank RN Unavailable [phone] Kaylen Moore ACCOUNTS RECEIVABLE COLLECTOR Unavailable Unavailable Encounter Details Date Type Department Care Team (Late st Contact Info) Description 03/09/2023 Abstract [facility] [address] [facility] 110 [place] [address] Shawn Barber MD 112 [facility] 110 [place] [address] Social History Tobacco Use Types [...] any clubs o r organizations such as orthodox groups, unions, fraternal or athletic groups, or [...] Recorded Patient Health Questionnaire-2 Score 1 11/25/2022 [facility] [place] [facility] [place] of Occupat ional Health - Occupational Stress [...] Visit [facility] [address] [facility] 110 [place] [address] Shawn Barber MD [address] [facility] 110 [place], [place] [address] 10/26/2024 2:50 PM EDT Office Visit [facility] [address] [place] [address] Colt Mendieta, DPM 3006 [facility] 5 [place] [address] documented as of this encounter Visit Diagnoses Not on filedocumented in this encounter Care Teams Retirement Village Manager Relationship Specialty Start Date End Date Shawn Barber MD [address] [place] [address] PCP - ACO Reach 09/24/22 Shawn Barber MD [address] [facility] 110 [place] [address] PCP - General Internal Medicine 10/22/22WednesdayRandee LPN [address] [facility] 110 [place] [address] Licensed Practical Nurse Family Medicine 12/29/22 06/09/24 Becca Campos LSW Straight Knife Machine Cutter Family Medicine 12/29/22 08/24/24 Hilary Frank, RN Licensed Practical Nurse Family Medicine 06/09/24 07/21/24 Kaylen Moore LPN 07/21/24 documented as of this encounter
--- OUTSIDE RECORDS SUMMARY | 2024-10-12 14:22 | XMS_ITS | Encounter Summary ---
Author Organization [facility] Address [address] [facility] [place] [address] Care Team Providers Care Photoengraving Apprentice Name Role Phone Shawn Barber MD Unavailable [phone] Shawn Barber MD Primary Care Provider [phone] Wednesday, Randee TEJEDA Unavailable [phone] Becca Campos OUTSIDE SALESPERSON Unavailable [phone] Hilary Frank RN Unavailable [phone] Kaylen Moore PIGGERY WORKER Unavailable Unavailable Encounter Details Date Type Department Care Team (Late st Contact Info) Description 02/02/2024 Abstract [facility] 112 [address] [facility] 110 [place] [address] Shawn Barber MD 112 [facility] 110 [place], [place] [address] Social History Tobacco Use Types Packs/Day Years [...] Patient Health Questionnaire-2 Score 1 11/25/2022 [facility] - Occupational Stress Questionnaire [...] any time in the past 12 m [facility], were you homeless or [...] [address] [place] [address] Shawn Barber MD [address] [place] [address] 10/26/2024 2:50 PM EDT Office Visit [facility] [address] [place] [address] Colt Mendieta, DPM 3006 [facility] 5 [place] [address] documented as of this encounter Visit Diagnoses Not on filedocumented in this encounter Care Teams Photoengraving Apprentice Relationship Specialty Start Date End Date Shawn Barber MD [address] [place] [address] PCP - ACO Reach 09/24/22 Shawn Barber MD [address] [place] [address] PCP - General Internal Medicine 10/22/22WednesdayRandee LPN [address] [place] [address] Licensed Practical Nurse Family Medicine 12/29/22 06/09/24 Becca Campos LSW Steam Box Tender Family Medicine 12/29/22 08/24/24 Hilary Frank, RN Licensed Practical Nurse Family Medicine 06/09/24 07/21/24 Kaylen Moore LPN 07/21/24 documented as of this encounter
--- OUTSIDE RECORDS SUMMARY | 2024-10-12 14:22 | XMS_ITS | Encounter Summary ---
Author Organization [facility] Address [address] [facility] [place] [address] Care Team Providers Care Operator Name Role Phone Shawn Barber MD Unavailable [phone] Shawn Barber MD Primary Care Provider [phone] Wednesday, Randee TEJEDA Unavailable [phone] Becca Campos WASTE OIL PUMPER Unavailable [phone] Hilary Frank RN Unavailable [phone] Kaylen Moore CREW ATTENDANT Unavailable Unavailable Encounter Details Date Type Department Care Team (Late st Contact Info) Description 03/16/2024 Abstract [facility] [address] [facility] 110 [place] [address] Shawn Barber MD 112 [facility] 110 [place], [place] [address] Social History Tobacco Use Types Packs/Day Years [...] attend chur ch or congregation services? Never 12/06/2023 Do you belong to [...] Recorded Patient Health Questionnaire-2 Score 1 11/25/2022 [facility] ional Health - Occupational [...] any time in the past 12 m [facility], were you homeless or living in [...] [address] [place] [address] Shawn Barber MD [address] [place] [address] 10/26/2024 2:50 PM EDT Office Visit [facility] [address] [place] [address] Colt Mendieta, DPM 3006 [facility] 5 [place] [address] documented as of this encounter Visit Diagnoses Not on filedocumented in this encounter Care Teams Operator Relationship Specialty Start Date End Date Shawn Barber MD [address] [place] [address] PCP - ACO Reach 09/24/22 Shawn Barber MD [address] [place] [address] PCP - General Internal Medicine 10/22/22WednesdayRandee LPN [address] [place] [address] Licensed Practical Nurse Family Medicine 12/29/22 06/09/24 Becca Campos LSW Tinsel Machine Operator Family Medicine 12/29/22 08/24/24 Hilary Frank, RN Licensed Practical Nurse Family Medicine 06/09/24 07/21/24 Kaylen Moore LPN 07/21/24 documented as of this encounter
--- OUTSIDE RECORDS SUMMARY | 2024-10-12 14:22 | XMS_ITS | Encounter Summary ---
Author Organization [facility] Address [address] [facility] [place] [address] Care Team Providers Care Instrument Technician Apprentice Name Role Phone Shawn Barber MD Unavailable [phone] Shawn Barber MD Primary Care Provider [phone] Wednesday, Randee SEGALN Unavailable [phone] Becca Campos DIGITAL ACCOUNT MANAGER Unavailable [phone] Hilary Frank RN Unavailable [phone] Kaylen Moore MARGARINE MAKER Unavailable Unavailable Encounter Details Date Type Department Care Team (Late st Contact Info) Description 12/22/2022 Orders Only [facility] [address] [place] [address] A, Unknown Practice [address] [place], [place] [address] Social History Tobacco Use Types Packs/Day Years [...] [address] [place] [address] Shawn Barber MD [address] [place] [address] 10/26/2024 2:50 PM EDT Office Visit [facility] [address] [place] [address] Colt Mendieta, DPChris [address] [facility] 5 [place] [address] documented as of this encounter Procedures Procedure Name Priority Date/Time Associated Diagnosis Comments SCANNED LABS Routine 12/19/2022 7:39 AM EDT documented in this encounter Results * SCANNED LABS (12/19/2022 7:39 AM EDT) us Unknown Practice A LAB CHG PERFORMABLES Final Re sult documented in this encounter Visit Diagnoses Not on filedocumented in this encounter Care Teams Instrument Technician Apprentice Relationship Specialty Start Date End Date Shawn Barber MD [address] [place] [address] PCP - ACO Reach 09/24/22 Shawn Barber MD [address] [place] [address] PCP - General Internal Medicine 10/22/22WednesdayRandee LPN [address] [place] [address] Licensed Practical Nurse Family Medicine 12/29/22 06/09/24 Becca Campos LSW Insurance Plan Specialist Family Medicine 12/29/22 08/24/24 Hilary Frank, RN Licensed Practical Nurse Family Medicine 06/09/24 07/21/24 Kaylen Moore LPN 07/21/24 documented as of this encounter
--- OUTSIDE RECORDS SUMMARY | 2024-10-12 14:22 | XMS_ITS | Encounter Summary ---
Author Organization [facility] Address [address] [facility] [place] [address] Care Team Providers Care Psychiatry Teacher Name Role Phone Shawn Barber MD Unavailable [phone] Shawn Barber MD Primary Care Provider [phone] Wednesday, Randee SEGALN Unavailable [phone] Becca Campos JOURNEYMAN MOLDER Unavailable [phone] Hilary Frank RN Unavailable [phone] MAGISTRATE Unavailable Unavailable Encounter Details Date Type Department Care Team (Late st Contact Info) Description 02/23/2023 Abstract [facility] [address] [facility] 110 [place] [address] Shawn Barber MD 112 [facility] 110 [place] [address] Social History Tobacco Use Types [...] any clubs o r organizations such as congregational groups, unions, fraternal or athletic groups, or [...] Recorded Patient Health Questionnaire-2 Score 1 11/25/2022 [facility] [place] of Occupat ional Health - Occupational Stress [...] Visit [facility] [address] [facility] 110 [place] [address] Shawn Barber MD [address] [facility] 110 [place], [place] [address] 10/26/2024 2:50 PM EDT Office Visit [facility] [address] [place] [address] Colt Mendieta, DPM 3006 [facility] 5 [place] [address] documented as of this encounter Visit Diagnoses Not on filedocumented in this encounter Care Teams Psychiatry Teacher Relationship Specialty Start Date End Date Shawn Barber MD [address] [place] [address] PCP - ACO Reach 09/24/22 Shawn Barber MD [address] [facility] 110 [place] [address] PCP - General Internal Medicine 10/22/22WednesdayRandee LPN [address] [facility] 110 [place] [address] Licensed Practical Nurse Family Medicine 12/29/22 06/09/24 Becca Campos LSW Residential Air Sealing Technician Family Medicine 12/29/22 08/24/24 Hilary Frank, RN Licensed Practical Nurse Family Medicine 06/09/24 07/21/24 Kaylen Moore LPN 07/21/24 documented as of this encounter
--- OUTSIDE RECORDS SUMMARY | 2024-10-12 14:22 | XMS_ITS | Encounter Summary ---
Author Organization [facility] Address [address] [place] [place] [address] Care Team Providers Care Slab Conditioner Supervisor Name Role Phone Shawn Barber MD Unavailable [phone] Shawn Barber MD Primary Care Provider [phone] Wednesday, Randee SEGALN Unavailable [phone] Becca Campos RELAY TELEGRAPHER Unavailable [phone] Hilary Frank RN Unavailable [phone] Kaylen Moore DIRECTOR Unavailable Unavailable Encounter Details Date Type Department Care Team (Late Contact Info) Description 2022 Abstract [facility] [address] [facility] 110 [place] [address] Shawn Barber MD 112 [facility] 110 [place] [address] Social History Tobacco Use Types [...] [address] [place] [address] Shawn Barber MD [address] [place] [address] 10/26/2024 2:50 PM EDT Office Visit [facility] [address] [place] [address] Colt Mendieta, DPChris 3006 [facility] 5 [place] [address] documented as of this encounter Visit Diagnoses Not on filedocumented in this encounter Care Teams Slab Conditioner Supervisor Relationship Specialty Start Date End Date Shawn aBrber MD [address] [place] [address] PCP - ACO Reach 09/24/22 Shawn Barber MD [address] [place] [address] PCP - General Internal Medicine 10/22/22WednesdayRandee LPN [address] [place] [address] Licensed Practical Nurse Family Medicine 12/29/22 06/09/24 Becca Campos LSW Public Health Program Manager Family Medicine 12/29/22 08/24/24 Hilary Frank, RN Licensed Practical Nurse Family Medicine 06/09/24 07/21/24 Kaylen Moore LPN 07/21/24 documented as of this encounter
--- OUTSIDE RECORDS SUMMARY | 2024-10-12 14:22 | XMS_ITS | Encounter Summary ---
Author Organization [facility] Address [address] [place] [address] Care Team Providers Care Manager Animation Name Role Phone Shawn Barber MD Unavailable [phone] Shawn Barber MD Primary Care Provider [phone] Wednesday, Randee SEGALN Unavailable [phone] Becca Campos VIDEO GAME TECHNICIAN Unavailable [phone] Hilary Frank RN Unavailable [phone] Kaylen Moore TALENT COORDINATOR Unavailable Unavailable Encounter Details Date Type Department Care Team (Late st Contact Info) Description 04/07/2023 Abstract [facility] [address] [facility] 110 [place] [address] Shawn Barber MD 112 [facility] 110 [place] [address] Social History Tobacco Use Types [...] attend chur ch or congregational services? Never 01/29/2023 Do you belong to [...] Recorded Patient Health Questionnaire-2 Score 1 11/25/2022 [facility] [place] of Occupat ional Health - Occupational Stress [...] Visit [facility] [address] [facility] 110 [place] [address] Shawn Barber MD [address] [facility] 110 [place], [place] [address] 10/26/2024 2:50 PM EDT Office Visit [facility] [address] [place] [address] Colt Mendieta, DPM 3006 [facility] 5 [place] [address] documented as of this encounter Visit Diagnoses Not on filedocumented in this encounter Care Teams Manager Animation Relationship Specialty Start Date End Date Shawn Barber MD [address] [place] [address] PCP - ACO Reach 09/24/22 Shawn Barber MD [address] [facility] 110 [place] [address] PCP - General Internal Medicine 10/22/22WednesdayRandee LPN [address] [facility] 110 [place] [address] Licensed Practical Nurse Family Medicine 12/29/22 06/09/24 Becca Campos LSW Visual Education Director Family Medicine 12/29/22 08/24/24 Hilary Frank, RN Licensed Practical Nurse Family Medicine 06/09/24 07/21/24 Kaylen Moore LPN 07/21/24 documented as of this encounter
--- OUTSIDE RECORDS SUMMARY | 2024-10-12 14:22 | XMS_ITS | Encounter Summary ---
Author Organization [facility] Address [address] [facility] [place] [address] Care Team Providers Care Apprentice Machinist Outside Name Role Phone Shawn Barber MD Unavailable [phone] Shawn Barber MD Primary Care Provider [phone] Wednesday, Randee SEGALN Unavailable [phone] Becca Campos GRAIN ELEVATOR MOTOR STARTER Unavailable [phone] Hilary Frank RN Unavailable [phone] Kaylen Moore TALENT ACQUISITION LEAD Unavailable Unavailable Encounter Details Date Type Department Care Team (Late st Contact Info) Description 01/28/2023 Abstract [facility] [address] [facility] 110 [place] [id number] Shawn Barber MD 112 [facility] 110 [place] [address] Social History Tobacco Use Types [...] attend chur ch or sikhism services? Never 01/29/2023 Do you belong to [...] Recorded Patient Health Questionnaire-2 Score 1 11/25/2022 [facility] [place] of Occupat ional Health - Occupational Stress [...] Score Answer Date of Assessment Author 0 01/29/2023 12:32 PM EDT Randee Tinsley LPN * Question Answer Date of Assessment Author Q1: How often do you have a drink containing alcohol? Never 01/29/2023 12:32 PM EDT Randee Tinsley L PN Q2: How many drinks containing alcohol do you have on a typical day when you are drinking? Patient does not drink 01/29/2023 12:32 PM EDT Randee Tinsley LPN Q3: How often do you have six or more drinks on one occasion? Never 01/29/2023 12:32 PM EDT WednesdayRandee L PN documented as of this encounter Plan of Treatment Upcoming Encounters Date Type Department Care Team (Late st Contact Info) Description 10/23/2024 2:00 PM EDT Office Visit [facility] [address] [facility] [place] [address] Shawn Barber MD [address] [facility] [place] [address] 10/26/2024 2:50 PM EDT Office Visit [facility] [address] [facility] [address] [place] [address] Colt Mendieta, DPM [address] [facility] 5 [place] [address] documented as of this encounter Visit Diagnoses Not on filedocumented in this encounter Care Teams Apprentice Machinist Outside Relationship Specialty Start Date End Date Shawn Barber MD [address] [facility] [place] [address] PCP - ACO Reach 09/24/22 Shawn Barber MD [address] [facility] [place] [address] PCP - General Internal Medicine 10/22/22WednesdayRandee LPN [address] [place] [address] Licensed Practical Nurse Family Medicine 12/29/22 06/09/24 Becca Campos LSW Broadcaster Family Medicine 12/29/22 08/24/24 Hilary Frank, RN Licensed Practical Nurse Family Medicine 06/09/24 07/21/24 Kaylen Moore LPN 07/21/24 documented as of this encounter
--- OUTSIDE RECORDS SUMMARY | 2024-10-12 14:22 | XMS_ITS | Encounter Summary ---
Author Organization [facility] Address [address] [facility] [place] [address] Care Team Providers Care Antique Furniture Reproducer Name Role Phone Shawn Barber MD Unavailable [phone] Shawn Barber MD Primary Care Provider [phone] Wednesday, Randee TEJEDA Unavailable [phone] Becca Campos CUSTOMER ACCOUNT SPECIALIST Unavailable [phone] Hilary Frank RN Unavailable [phone] Kaylen Moore MAMMOGRAPHY TECHNICIAN Unavailable Unavailable Encounter Details Date Type Department Care Team (Late st Contact Info) Description 01/26/2024 Abstract [facility] [address] [facility] 110 [place] [id number] Shawn Barber MD 112 [facility] 110 [place] [address] Social History Tobacco Use Types [...] often do you attend chur ch or church services? Never 12/06/2023 Do you belong to [...] 1 11/25/2022 [facility] - Occupational Stress Questionnaire [...] any time in the past 12 m [facility], were you homeless or living in a correction (including now)? No 12/06/2023 Comments Unknown Sex [...] [address] [facility] [address] [place] [address] Shawn Barber MD [address] [place] [address] 10/26/2024 2:50 PM EDT Office Visit [facility] [address] [facility] [place] [address] Colt Mendieta, DPM 3006 [facility] 5 [place] [address] documented as of this encounter Visit Diagnoses Not on filedocumented in this encounter Care Teams Antique Furniture Reproducer Relationship Specialty Start Date End Date Shawn Barber MD [address] [place] [address] PCP - ACO Reach 09/24/22 Shawn Barber MD [address] [place] [address] PCP - General Internal Medicine 10/22/22WednesdayRandee LPN [address] [place] [address] Licensed Practical Nurse Family Medicine 12/29/22 06/09/24 Becca Campos LSW Information Systems Administrator Family Medicine 12/29/22 08/24/24 Hilary Frank, RN Licensed Practical Nurse Family Medicine 06/09/24 07/21/24 Kaylen Moore LPN 07/21/24 documented as of this encounter
--- OUTSIDE RECORDS SUMMARY | 2024-10-12 14:22 | XMS_ITS | Encounter Summary ---
Author Organization [facility] Address [address] [facility] [place] [address] Care Team Providers Care Laundry Housekeeper Name Role Phone Shawn Barber MD Unavailable [phone] Shawn Barber MD Primary Care Provider [phone] Wednesday, Randee SEGALN Unavailable [phone] Becca Campos CVICU NURSE Unavailable [phone] Hilary Frank RN Unavailable [phone] Kaylen Moore BOTTOM CAGER Unavailable Unavailable Encounter Details Date Type Department Care Team (Late Contact Info) Description 01/05/2023 Abstract [facility] [address] [facility] 110 [place] [address] Shawn Barber MD 112 [facility] 110 [place] [address] Social History Tobacco Use Types [...] [address] [facility] [place] [address] Shawn Barber MD [address] [place] [address] 10/26/2024 2:50 PM EDT Office Visit [facility] [address] [facility] [place] [address] Colt Mendieta, DPChris 3006 [facility] [place] [address] documented as of this encounter Visit Diagnoses Not on filedocumented in this encounter Care Teams Laundry Housekeeper Relationship Specialty Start Date End Date Shawn Barber MD [address] [place] [address] PCP - ACO Reach 09/24/22 Shawn Barber MD [address] [facility] [place] [address] PCP - General Internal Medicine 10/22/22WednesdayRandee LPN [address] [place] [address] Licensed Practical Nurse Family Medicine 12/29/22 06/09/24 Becca Campos LSW Teacher Ballet Family Medicine 12/29/22 08/24/24 Hilary Frank, RN Licensed Practical Nurse Family Medicine 06/09/24 07/21/24 Kaylen Moore LPN 07/21/24 documented as of this encounter
--- OUTSIDE RECORDS SUMMARY | 2024-10-12 14:22 | XMS_ITS | Encounter Summary ---
Author Organization [facility] Address [address] [facility] [place] [address] Care Team Providers Care Seed Cleaning Machine Operator Name Role Phone Shawn Barber MD Unavailable [phone] Shawn Barber MD Primary Care Provider [phone] Wednesday, Randee SEGALN Unavailable [phone] Becca Campos SERVICE SPECIALIST Unavailable [phone] Hilary Frank RN Unavailable [phone] Kaylen Moore AUTOMOTIVE PARTS CLERK Unavailable Unavailable Encounter Details Date Type Department Care Team (Late st Contact Info) Description 04/14/2023 Abstract [facility] [address] [facility] 110 [place] [address] Shawn Barber MD 112 [facility] 110 [place] [address] Social History Tobacco Use Types [...] attend chur ch or moravian services? Never 01/29/2023 Do you belong to any clubs o r organizations such as denominational groups, unions, fraternal or athletic groups, or [...] Recorded Patient Health Questionnaire-2 Score 1 11/25/2022 [facility] [place] of Occupat ional Health - Occupational Stress [...] [facility] [address] [facility] 110 [place] [address] Shawn Barber MD [address] [facility] 110 [place], [place] [address] 10/26/2024 2:50 PM EDT Office Visit [facility] [address] [place] [address] Colt Mendieta, DPM 3006 [facility] 5 [place] [address] documented as of this encounter Visit Diagnoses Not on filedocumented in this encounter Care Teams Seed Cleaning Machine Operator Relationship Specialty Start Date End Date Shawn Barber MD [address] [place] [place] [address] PCP - ACO Reach 09/24/22 Shawn Barber MD [address] [facility] 110 [place] [address] PCP - General Internal Medicine 10/22/22WednesdayRandee LPN [address] [facility] 110 [place] [address] Licensed Practical Nurse Family Medicine 12/29/22 06/09/24 Becca Campos LSW Manager Clinical Pharmacy Family Medicine 12/29/22 08/24/24 Hilary Frank, RN Licensed Practical Nurse Family Medicine 06/09/24 07/21/24 Kaylen Moore LPN 07/21/24 documented as of this encounter
--- OUTSIDE RECORDS SUMMARY | 2024-10-12 14:22 | XMS_ITS | Encounter Summary ---
Author Organization [facility] Address [address] [facility] [place] [address] Care Team Providers Care Tool Crib Attendant Name Role Phone Shawn Barber MD Unavailable [phone] Shawn Barber MD Primary Care Provider [phone] Wednesday, Randee SEGALN Unavailable [phone] Becca Campos SPECTROGRAPH OPERATOR Unavailable [phone] Hilary Frank RN Unavailable [phone] Kaylen Moore MIRROR FABRICATION SUPERVISOR Unavailable Unavailable Encounter Details Date Type Department Care Team (Late st Contact Info) Description 04/16/2023 Abstract [facility] [address] [facility] 110 [place] [id number] Shawn Barber MD 112 [facility] 110 [place] [address] Social History Tobacco Use Types [...] often do you attend chur ch or confucianist services? Never 01/29/2023 Do you belong to [...] Recorded Patient Health Questionnaire-2 Score 1 11/25/2022 [facility] [place] of Occupat ional Health - Occupational Stress [...] pleasure in doing things Not at all 04/19/2023 1:00 PM Ginger Maher LP N Feeling down, depressed, or hopeless Not at all 04/19/2023 1:00 PM Ginger Maher LP N Patient Health Questionnaire -2 Score 0 04/19/2023 1:00 PM EST Dukles, Ginger, LP N documented as of this encounter Plan of Treatment Upcoming Encounters Date Type Department Care Team (Late st Contact Info) Description 10/23/2024 2:00 PM EDT Office Visit [facility] [address] [facility] [address] [place] [address] Shawn Barber MD [address] [place] [address] 10/26/2024 2:50 PM EDT Office Visit [facility] [address] [facility] [place] [address] Colt Mendieta, DPM 3006 [facility] 5 [place] [address] documented as of this encounter Visit Diagnoses Not on filedocumented in this encounter Care Teams Tool Crib Attendant Relationship Specialty Start Date End Date Shawn Barber MD [address] [place] [address] PCP - ACO Reach 09/24/22 Shawn Barber MD [address] [place] [address] PCP - General Internal Medicine 10/22/22WednesdayRandee LPN [address] [place] [address] Licensed Practical Nurse Family Medicine 12/29/22 06/09/24 Becca Campos LSW Crown Ironer Family Medicine 12/29/22 08/24/24 Hilary Frank, RN Licensed Practical Nurse Family Medicine 06/09/24 07/21/24 Kaylen Moore LPN 07/21/24 documented as of this encounter
--- OUTSIDE RECORDS SUMMARY | 2024-10-12 14:22 | XMS_ITS | Encounter Summary ---
Author Organization [facility] Address [address] [facility] [place] [address] Care Team Providers Care Dredge Pipe Operator Name Role Phone Shawn Barber MD Unavailable [phone] Shawn Barber MD Primary Care Provider [phone] Wednesday, Randee SEGALN Unavailable [phone] Becca Campos APARTMENT ASSISTANT MANAGER Unavailable [phone] Hilary Frank RN Unavailable [phone] Kaylen Moore MANAGER SIGN Unavailable Unavailable Encounter Details Date Type Department Care Team (Late st Contact Info) Description 04/16/2023 Abstract [facility] [address] [facility] 110 [place] [address] Shawn Barber MD 112 [facility] 110 [place] [address] Social History Tobacco Use Types [...] Recorded Patient Health Questionnaire-2 Score 1 11/25/2022 [facility] [place] of Occupat ional Health - Occupational Stress [...] place to sleep or slept in a assisted (including now)? No 01/29/2023 Housing Stability Vital [...] [address] [facility] [place] [address] Shawn Barber MD [address] [place] [address] 10/26/2024 2:50 PM EDT Office Visit [facility] [address] [place] [address] [place] [address] Colt Mendieta, DPM 3006 [facility] 5 [place] [address] documented as of this encounter Visit Diagnoses Not on filedocumented in this encounter Care Teams Dredge Pipe Operator Relationship Specialty Start Date End Date Shawn Barber MD [address] [place] [address] PCP - ACO Reach 09/24/22 Shawn Barber MD [address] [place] [address] PCP - General Internal Medicine 10/22/22WednesdayRandee LPN [address] [place] [address] Licensed Practical Nurse Family Medicine 12/29/22 06/09/24 Becca Campos LSW Radio Station Engineer Family Medicine 12/29/22 08/24/24 Hilary Frank, RN Licensed Practical Nurse Family Medicine 06/09/24 07/21/24 Kaylen Moore LPN 07/21/24 documented as of this encounter
--- OUTSIDE RECORDS SUMMARY | 2024-10-12 14:22 | XMS_ITS | Encounter Summary ---
Author Organization [facility] Address [address] [facility] [place] [address] Care Team Providers Care Bulk Receiver Name Role Phone Shawn Barber MD Unavailable [phone] Shawn Barber MD Primary Care Provider [phone] Wednesday, Randee SEGALN Unavailable [phone] Becca Campos SPEECH CORRECTION ASSISTANT Unavailable [phone] Hilary Frank RN Unavailable [phone] Kaylen Moore COLLECTION ADMINISTRATOR Unavailable Unavailable Encounter Details Date Type Department Care Team (Late st Contact Info) Description 03/11/2023 Abstract [facility] 112 [address] [facility] 110 [place] [address] Shawn Barber MD 112 [facility] 110 [place] [address] Social History Tobacco Use Types [...] any clubs o r organizations such as episcopal groups, unions, fraternal or athletic groups, or [...] Recorded Patient Health Questionnaire-2 Score 1 11/25/2022 [facility] [place] of Occupat ional Health - Occupational Stress [...] Visit [facility] [address] [email or web address] 110 [place] [address] Shawn Barber MD [address] [facility] 110 [place], [place] [address] 10/26/2024 2:50 PM EDT Office Visit [facility] [address] [place] [place] [address] Colt Mendieta, DPM 3006 [facility] 5 [place] [address] documented as of this encounter Visit Diagnoses Not on filedocumented in this encounter Care Teams Bulk Receiver Relationship Specialty Start Date End Date Shawn Barber MD [address] [place] [address] PCP - ACO Reach 09/24/22 Shawn Barber MD [address] [facility] 110 [place] [address] PCP - General Internal Medicine 10/22/22WednesdayRandee LPN [address] [facility] [address] [place] [address] Licensed Practical Nurse Family Medicine 12/29/22 06/09/24 Becca Campos LSW Customer Relations Coordinator Family Medicine 12/29/22 08/24/24 Hilary Frank, RN Licensed Practical Nurse Family Medicine 06/09/24 07/21/24 Kaylen Moore LPN 07/21/24 documented as of this encounter
--- OUTSIDE RECORDS SUMMARY | 2024-10-12 14:22 | XMS_ITS | Encounter Summary ---
Author Organization [facility] Address [address] [facility] [place] [address] Care Team Providers Care Wire Welder Name Role Phone Shawn Barber MD Unavailable [phone] Shawn Barber MD Primary Care Provider [phone] Wednesday, Randee SEGALN Unavailable [phone] Becca Campos LEAD CUSTOMER SERVICE REPRESENTATIVE Unavailable [phone] Hilary Frank RN Unavailable [phone] Kaylen Moore HAM FACER Unavailable Unavailable Encounter Details Date Type Department Care Team (Late Contact Info) Description 12/15/2022 Abstract [facility] [address] [facility] 110 [place] [address] Shawn Barber MD 112 [facility] 110 [place] [address] Social History Tobacco Use Types [...] [address] [facility] [place] [address] Shawn Barber MD [address] [place] [address] 10/26/2024 2:50 PM EDT Office Visit [facility] [address] [place] [address] Colt Mendieta, DPChris 3006 [facility] 5 [place] [address] documented as of this encounter Visit Diagnoses Not on filedocumented in this encounter Care Teams Wire Welder Relationship Specialty Start Date End Date Shawn Barber MD [address] [place] [address] PCP - ACO Reach 09/24/22 Shawn Barber MD [address] [place] [address] PCP - General Internal Medicine 10/22/22WednesdayRandee LPN [address] [place] [address] Licensed Practical Nurse Family Medicine 12/29/22 06/09/24 Becca Campos LSW Ham Facer Family Medicine 12/29/22 08/24/24 Hilary Frank, RN Licensed Practical Nurse Family Medicine 06/09/24 07/21/24 Kaylen Moore LPN 07/21/24 documented as of this encounter
--- OUTSIDE RECORDS SUMMARY | 2024-10-12 14:22 | XMS_ITS | Encounter Summary ---
Author Organization [facility] Address [address] [facility] [place] [address] Care Team Providers Care Position Classifier Name Role Phone Shawn Barber MD Unavailable [phone] Shawn Barber MD Primary Care Provider [phone] Wednesday, Randee SEGALN Unavailable [phone] Becca Campos SAFETY PHYSICIAN Unavailable [phone] Hilary Frank RN Unavailable [phone] Kaylen Moore ANGLESMITH Unavailable Unavailable Encounter Details Date Type Department Care Team (Late st Contact Info) Description 02/04/2023 Orders Only [facility] [address] [facility] [place] [address] A, Unknown Practice [address] [place], [place] [address] Social History Tobacco Use Types Packs/Day Years [...] 01/29/2023 How often do you attend chur or samaritan services? Never 01/29/2023 Do you [...] Recorded Patient Health Questionnaire-2 Score 1 11/25/2022 [facility] of Occupat ional Health - Occupational Stress [...] Visit [facility] [address] [facility] 110 [place] [address] Shawn Barber MD [address] [facility] 110 [place] [address] 10/26/2024 2:50 PM EDT Office Visit [facility] [address] [facility] 120 [place] [address] Colt Mendieta, DPM 3006 [facility] 5 [place] [address] documented as of this encounter Procedures Procedure Name Priority Date/Time Associated Diagnosis Comments SCANNED LABS Routine 02/03/2023 1:29 PM EDT documented in this encounter Results * SCANNED LABS (02/03/2023 1:29 PM EDT) us Unknown Practice A LAB CHG PERFORMABLES Final Re sult documented in this encounter Visit Diagnoses Not on filedocumented in this encounter Care Teams Position Classifier Relationship Specialty Start Date End Date Shawn Barber MD [address] [place] [address] PCP - ACO Reach 09/24/22 Shawn Barber MD [address] [place] [address] PCP - General Internal Medicine 10/22/22Wednesday, NIKHIL Jeff [address] [place] [address] Licensed Practical Nurse Family Medicine 12/29/22 06/09/24 Becca Campos LSW School Resource Officer Family Medicine 12/29/22 08/24/24 Hilary Frank, BENITO Licensed Practical Nurse Family Medicine 06/09/24 07/21/24 Kaylen Moore LPN 07/21/24 documented as of this encounter
--- OUTSIDE RECORDS SUMMARY | 2024-10-12 14:22 | XMS_ITS | Encounter Summary ---
Author Organization [facility] Address [address] [facility] [place] [address] Care Team Providers Care Insurance Job Titles Name Role Phone Shawn Barber MD Unavailable [phone] Shawn Barber MD Primary Care Provider [phone] Wednesday, Randee SEGALN Unavailable [phone] Becca Campos CODE ENFORCEMENT SUPERVISOR Unavailable [phone] Hilary Frank RN Unavailable [phone] Kaylen Moore CHEMICAL MIXER Unavailable Unavailable Encounter Details Date Type Department Care Team (Late Contact Info) Description 01/05/2023 Abstract [facility] [address] [facility] 110 [place] [address] Shawn Barber MD 112 [facility] 110 [place] [address] Social History Tobacco Use Types [...] [address] [facility] [place] [address] Shawn Barber MD [address] [place] [address] 10/26/2024 2:50 PM EDT Office Visit [facility] [address] [facility] [place] [address] Colt Mendieta, DPChris 3006 [facility] 5 [place] [address] documented as of this encounter Visit Diagnoses Not on filedocumented in this encounter Care Teams Insurance Job Titles Relationship Specialty Start Date End Date Shawn Barber MD [address] [place] [address] PCP - ACO Reach 09/24/22 Shawn Barber MD [address] [place] [address] PCP - General Internal Medicine 10/22/22WednesdayRandee LPN [address] [place] [address] Licensed Practical Nurse Family Medicine 12/29/22 06/09/24 Becca Campos LSW Stogie Packer Family Medicine 12/29/22 08/24/24 Hilary Frank, RN Licensed Practical Nurse Family Medicine 06/09/24 07/21/24 Kaylen Moore LPN 07/21/24 documented as of this encounter
--- OUTSIDE RECORDS SUMMARY | 2024-10-12 14:22 | XMS_ITS | Encounter Summary ---
Author Organization [facility] Address [address] [facility] [place] [address] Care Team Providers Care Auto Tune Up Mechanic Name Role Phone Shawn Barber MD Unavailable [phone] Shawn Barber MD Primary Care Provider [phone] Wednesday, Randee SEGALN Unavailable [phone] Becca Campos SR. DIRECTOR Unavailable [phone] Hilary Frank RN Unavailable [phone] Kaylen Moore THERAPEUTIC ASSISTANT Unavailable Unavailable Encounter Details Date Type Department Care Team (Late st Contact Info) Description 04/13/2023 Orders Only [facility] [address] [place] [address] [place] [address] A, Unknown Practice [address] [place], [place] [address] Social History Tobacco Use Types Packs/Day Years [...] How often do you attend chur or church services? Never 01/29/2023 Do you belong to [...] Recorded Patient Health Questionnaire-2 Score 1 11/25/2022 [facility] of Occupat ional Health - Occupational [...] Visit [facility] [address] [facility] 110 [place] [address] Shawn Barber MD [address] [facility] 110 [place] [address] 10/26/2024 2:50 PM EDT Office Visit [facility] [address] [facility] 120 [place] [address] Colt Mendieta, DPChris [address] [facility] 5 [place] [address] documented as of this encounter Procedures Procedure Name Priority Date/Time Associated Diagnosis Comments MAMMOGRAM* Routine 04/12/2023 11:52 AM EST documented in this encounter Results * MAMMOGRAM* (04/12/2023 11:52 AM EST) Anatomical Region Laterality Modality Radiographic Bhavya ging us Unknown Practice A IMG XR PROCEDURES Final Resul t documented in this encounter Visit Diagnoses Not on filedocumented in this encounter Care Teams Auto Tune Up Mechanic Relationship Specialty Start Date End Date Shawn Barber MD [address] [facility] 110 [place] [address] PCP - ACO Reach 09/24/22 Shawn Barber MD [address] [facility] 110 [place] [address] PCP - General Internal Medicine 10/22/22WednesdayRandee LPN [address] [place] [address] Licensed Practical Nurse Family Medicine 12/29/22 06/09/24 Becca Campos LSW Yacht Captain Family Medicine 12/29/22 08/24/24 Hilary Frank, RN Licensed Practical Nurse Family Medicine 06/09/24 07/21/24 Kaylen Moore LPN 07/21/24 documented as of this encounter
--- OUTSIDE RECORDS SUMMARY | 2024-10-12 14:22 | XMS_ITS | Encounter Summary ---
Author Organization [facility] Address [address] [facility] [place] [address] Care Team Providers Care Cad Operator Name Role Phone Shawn Barber MD Unavailable [phone] Shawn Barber MD Primary Care Provider [phone] Wednesday, Randee SEGALN Unavailable [phone] Becca Campos GUM MAKER Unavailable [phone] Hilary Frank RN Unavailable [phone] Kaylen Moore DUDE RANCH MANAGER Unavailable Unavailable Encounter Details Date Type Department Care Team (Late Contact Info) Description 12/23/2022 Abstract [facility] [address] [facility] 110 [place] [id number] Shawn Barber MD 112 [facility] 110 [place] [address] Social History Tobacco Use Types [...] [address] [facility] [address] [place] [address] Shawn Barber MD [address] [facility] [address] [place] [address] 10/26/2024 2:50 PM EDT Office Visit [facility] [address] [facility] [address] [place] [address] Colt Mendieta, DPChris [address] [facility] 5 [place] [address] documented as of this encounter Visit Diagnoses Not on filedocumented in this encounter Care Teams Cad Operator Relationship Specialty Start Date End Date Shawn Barber MD [address] [place] [address] [place] [address] PCP - ACO Reach 09/24/22 Shawn Barber MD [address] [place] [address] [place] [address] PCP - General Internal Medicine 10/22/22WednesdayRandee LPN [address] [place] [address] Licensed Practical Nurse Family Medicine 12/29/22 06/09/24 Becca Campos LSW Political Science Instructor Family Medicine 12/29/22 08/24/24 Hilary Frank, RN Licensed Practical Nurse Family Medicine 06/09/24 07/21/24 Kaylen Moore LPN 07/21/24 documented as of this encounter
--- OUTSIDE RECORDS SUMMARY | 2024-10-12 14:22 | XMS_ITS | Encounter Summary ---
Author Organization [facility] Address [address] [facility] [address] Care Team Providers Care Cassandra Architect Name Role Phone Shawn Barber MD Unavailable Shawn Barber MD Primary Care Provider [phone] Wednesday, Randee SEGALN Unavailable [phone] Becca Campos AUTOMOTIVE PAINTER Unavailable [phone] Hilary Frank RN Unavailable [phone] Kaylen Moore RAFTER CUTTING MACHINE OPERATOR Unavailable Unavailable Encounter Details Date Type Department Care Team (Late st Contact Info) Description 12/23/2022 Orders Only [facility] [address] [facility] [address] [place] [address] A, Unknown Practice [address] [place], [place] [id number] Social History Tobacco Use Types Packs/Day Years [...] [address] [facility] [address] [place] [address] Shawn Barber MD [address] [facility] [address] [place] [address] 10/26/2024 2:50 PM EDT Office Visit [facility] [address] [facility] [address] [place] [address] Colt Mendieta, DPChris [address] [facility] [place] [address] documented as of this encounter Procedures Procedure Name Priority Date/Time Associated Diagnosis Comments SCANNED LABS Routine 12/19/2022 7:48 AM EDT documented in this encounter Results * SCANNED LABS (12/19/2022 7:48 AM EDT) us Unknown Practice A LAB CHG PERFORMABLES Final Re sult documented in this encounter Visit Diagnoses Not on filedocumented in this encounter Care Teams Cassandra Architect Relationship Specialty Start Date End Date Shawn Barber MD [address] [facility] [place] [address] PCP - ACO Reach 09/24/22 Shawn Barber MD [address] [facility] [address] [place] [address] PCP - General Internal Medicine 10/22/22WednesdayRandee LPN [address] [place] [address] Licensed Practical Nurse Family Medicine 12/29/22 06/09/24 Becca Campos LSW Regional Vice President Surgical Sales Family Medicine 12/29/22 08/24/24 Hilary Frank, RN Licensed Practical Nurse Family Medicine 06/09/24 07/21/24 Kaylen Moore LPN 07/21/24 documented as of this encounter
--- OUTSIDE RECORDS SUMMARY | 2024-10-12 14:22 | XMS_ITS | Encounter Summary ---
Author Organization [facility] Address [address] [facility] [place] [address] Care Team Providers Care Carroter Name Role Phone Sahwn Barber MD Unavailable [phone] Shawn Barber MD Primary Care Provider [phone] Wednesday, Randee SEGALN Unavailable [phone] Becca Campos RESEARCH KENNEL SUPERVISOR Unavailable [phone] Hilary Frank RN Unavailable [phone] Kaylen Moore FORENSIC SPECIALIST Unavailable Unavailable Encounter Details Date Type Department Care Team (Late st Contact Info) Description 04/16/2023 Abstract [facility] [address] [facility] 110 [place] [id number] Shawn Barber MD 112 [facility] 110 [place] [address] Social History Tobacco Use Types [...] often do you attend chur ch or holiness services? Never 01/29/2023 Do you belong to [...] Questionnaire-2 Score 1 11/25/2022 [facility] [place] of Occupat ional Health - Occupational Stress [...] [address] [facility] [place] [address] Shawn Barber MD [address] [facility] [place] [address] 10/26/2024 2:50 PM EDT Office Visit [facility] [address] [facility] [address] [place] [address] Colt Mendieta, DPM [address] [facility] 5 [place] [address] documented as of this encounter Visit Diagnoses Not on filedocumented in this encounter Care Teams Carroter Relationship Specialty Start Date End Date Shawn Barber MD [address] [facility] [address] [place] [address] PCP - ACO Reach 09/24/22 Shawn Barber MD [address] [facility] [address] [place] [address] PCP - General Internal Medicine 10/22/22WednesdayRandee LPN [address] [place] [address] Licensed Practical Nurse Family Medicine 12/29/22 06/09/24 Becca Campos LSW Restaurant Maintenance Technician Family Medicine 12/29/22 08/24/24 Hilary Frank, RN Licensed Practical Nurse Family Medicine 06/09/24 07/21/24 Kaylen Moore LPN 07/21/24 documented as of this encounter
--- OUTSIDE RECORDS SUMMARY | 2024-10-12 14:22 | XMS_ITS | Encounter Summary ---
Author Organization [facility] Address [address] [facility] [place] [address] Care Team Providers Care Paper Bundler Name Role Phone Shawn Barber MD Unavailable [phone] Shawn Barber MD Primary Care Provider Wednesday, Randee SEGALN Unavailable [phone] Becca Campos SANITATION TRUCK CLEANER Unavailable [phone] Hilary Frank RN Unavailable [phone] Kaylen Moore DRY HOUSE WORKER Unavailable Unavailable Encounter Details Date Type Department Care Team (Late Contact Info) Description 12/29/2022 Abstract [facility] [address] [facility] 110 [place] [address] Shawn Barber MD 112 [facility] 110 [place] [address] Social History Tobacco Use Types [...] [address] [facility] [place] [address] Shawn Barber MD [address] [facility] [place] [address] 10/26/2024 2:50 PM EDT Office Visit [facility] [address] [facility] [address] [place] [address] Colt Mendieta, DPChris [address] [facility] 5 [place] [address] documented as of this encounter Visit Diagnoses Not on filedocumented in this encounter Care Teams Paper Bundler Relationship Specialty Start Date End Date Shawn Barber MD [address] [facility] [place] [address] PCP - ACO Reach 09/24/22 Shawn Barber MD [address] [facility] [address] [place] [address] PCP - General Internal Medicine 10/22/22WednesdayRandee LPN [address] [place] [address] Licensed Practical Nurse Family Medicine 12/29/22 06/09/24 Becca Campos LSW Payroll Manager Family Medicine 12/29/22 08/24/24 Hilary Frank, RN Licensed Practical Nurse Family Medicine 06/09/24 07/21/24 Kaylen Moore LPN 07/21/24 documented as of this encounter
--- OUTSIDE RECORDS SUMMARY | 2024-10-12 14:22 | XMS_ITS | Encounter Summary ---
Author Organization [facility] Address [address] [facility] [place] [address] Care Team Providers Care Clock Mechanic Name Role Phone Shawn Barber MD Unavailable Shawn Barber MD Primary Care Provider [phone] Wednesday, Randee SEGALN Unavailable [phone] Becca Campos BUMPER STRAIGHTENER Unavailable [phone] Hilary Frank RN Unavailable [phone] Kaylen Moore SEWER PIPE CLEANER Unavailable Unavailable Encounter Details Date Type Department Care Team (Late st Contact Info) Description 04/07/2023 Abstract [facility] [address] [facility] 110 [place] [address] Sahwn Barber MD 112 [facility] 110 [place] [address] Social History Tobacco Use Types [...] attend chur ch or mormon services? Never 01/29/2023 Do you belong to [...] Recorded Patient Health Questionnaire-2 Score 1 11/25/2022 [facility] [place] of Occupat ional Health - Occupational Stress [...] Visit [facility] [address] [facility] 110 [place] [address] Shawn Barber MD [address] [facility] 110 [place], [place] [address] 10/26/2024 2:50 PM EDT Office Visit [facility] [address] [facility] [place] [address] Colt Mendieta, DPM [address] [facility] 5 [place] [address] documented as of this encounter Visit Diagnoses Not on filedocumented in this encounter Care Teams Clock Mechanic Relationship Specialty Start Date End Date Shawn Barber MD [address] [facility] [place] [address] PCP - ACO Reach 09/24/22 Shawn Barber MD [address] [facility] 110 [place] [address] PCP - General Internal Medicine 10/22/22WednesdayRandee LPN [address] [facility] 110 [place] [address] Licensed Practical Nurse Family Medicine 12/29/22 06/09/24 Becca Campos LSW Cut Off Saw Operator Pipe Blanks Family Medicine 12/29/22 08/24/24 Hilary Frank, RN Licensed Practical Nurse Family Medicine 06/09/24 07/21/24 Kaylen Moore LPN 07/21/24 documented as of this encounter
--- OUTSIDE RECORDS SUMMARY | 2024-10-12 14:22 | XMS_ITS | Encounter Summary ---
Author Organization [facility] Address [address] [place] [place] [address] Care Team Providers Care Hotel Front Office Manager Name Role Phone Shawn Barber MD Unavailable [phone] Shawn Barber MD Primary Care Provider [phone] Wednesday, Randee TEJEDA Unavailable [phone] Becca Campos REPORTING SPECIALIST Unavailable [phone] Hilary Frank RN Unavailable [phone] Kaylen Moore FITNESS PLAN COORDINATOR Unavailable Unavailable Encounter Details Date Type Department Care Team (Late st Contact Info) Description 02/03/2024 Abstract [facility] [address] [facility] 110 [place] [address] Shawn Barber MD 112 [facility] 110 [place], [place] [address] Social History Tobacco Use Types Packs/Day Years [...] often do you attend chur ch or anglican services? Never 12/06/2023 Do you belong to any clubs o r organizations such as zoroastrianism groups, unions, fraternal or athletic groups, or [...] Questionnaire-2 Score 1 11/25/2022 [facility] - Occupational Stress Questionnaire Answer [...] time in the past 12 m [facility], were you homeless or living in a [...] [address] [facility] [place] [address] Shawn Barber MD [address] [facility] [place] [address] 10/26/2024 2:50 PM EDT Office Visit [facility] [address] [facility] [address] [place] [address] Colt Mendieta, DPM [address] [facility] 5 [place] [address] documented as of this encounter Visit Diagnoses Not on filedocumented in this encounter Care Teams Hotel Front Office Manager Relationship Specialty Start Date End Date Shawn Barber MD [address] [facility] [place] [address] PCP - ACO Reach 09/24/22 Shawn Barber MD [address] [facility] [place] [address] PCP - General Internal Medicine 10/22/22WednesdayRandee LPN [address] [place] [address] Licensed Practical Nurse Family Medicine 12/29/22 06/09/24 Becca Campos LSW Glass Science Engineer Family Medicine 12/29/22 08/24/24 Hilary Frank, RN Licensed Practical Nurse Family Medicine 06/09/24 07/21/24 Kaylen Moore LPN 07/21/24 documented as of this encounter
--- OUTSIDE RECORDS SUMMARY | 2024-10-12 14:22 | XMS_ITS | Encounter Summary ---
Author Organization [facility] Address [address] [facility] [place] [address] Care Team Providers Care Chef Teacher Name Role Phone Shawn Barber MD Unavailable [phone] Shawn Barber MD Primary Care Provider [phone] Wednesday, Randee SEGALN Unavailable [phone] Becca Campos CLINICAL STATISTICS MANAGER Unavailable [phone] Hilary Frank RN Unavailable [phone] Kaylen Moore DISH WASHER Unavailable Unavailable Encounter Details Date Type Department Care Team (Late st Contact Info) Description 04/20/2023 Abstract [facility] [address] [facility] 110 [place] [address] Shawn Barber MD 112 [facility] 110 [place] [address] Social History Tobacco Use Types [...] often do you attend chur ch or anabaptist services? Never 01/29/2023 Do you belong to [...] Questionnaire-2 Score 1 11/25/2022 [facility] of Occupat ional Health - Occupational Stress [...] [facility] [address] [facility] 110 [place] [address] Shawn Barber MD [address] [facility] 110 [place] [address] 10/26/2024 2:50 PM EDT Office Visit [facility] [address] [place] [address] [place] [address] Colt Mendieta, DPM 3006 [facility] 5 [place] [address] documented as of this encounter Visit Diagnoses Not on filedocumented in this encounter Care Teams Chef Teacher Relationship Specialty Start Date End Date Shawn Barber MD [address] [place] [place] [address] PCP - ACO Reach 09/24/22 Shawn Barber MD [address] [facility] [address] [place] [address] PCP - General Internal Medicine 10/22/22Wednesday, NIKHIL Jeff [address] [place] [address] Licensed Practical Nurse Family Medicine 12/29/22 06/09/24 Becca Campos LSW Allergist/Immunologist Family Medicine 12/29/22 08/24/24 Hilary Frank, RN Licensed Practical Nurse Family Medicine 06/09/24 07/21/24 Kaylen Moore LPN 07/21/24 documented as of this encounter
--- OUTSIDE RECORDS SUMMARY | 2024-10-12 14:22 | XMS_ITS | Encounter Summary ---
Author Organization [facility] Address [address] [facility] [place] [address] Care Team Providers Care Car Restorer Name Role Phone Shawn Barber MD Unavailable [phone] Shawn Barber MD Primary Care Provider [phone] Wednesday, Randee SEGALN Unavailable [phone] Becca Campos GROUP TEACHER Unavailable [phone] Hilary Frank RN Unavailable [phone] Kaylen Moore CLAIMS COLLECTOR Unavailable Unavailable Encounter Details Date Type Department Care Team (Late st Contact Info) Description 03/11/2023 Abstract [facility] [address] [facility] 110 [place] [address] Shawn Barbre MD 112 [facility] 110 [place] [address] Social History Tobacco Use Types [...] often do you attend chur ch or roman catholic services? Never 01/29/2023 Do you belong to [...] Recorded Patient Health Questionnaire-2 Score 1 11/25/2022 [facility] [place] of Occupat ional Health - Occupational Stress [...] place to sleep or slept in a long-term (including now)? No 01/29/2023 Housing Stability Vital [...] Visit [facility] [address] [facility] 110 [place] [address] Shawn Barber MD [address] [facility] 110 [place], [place] [address] 10/26/2024 2:50 PM EDT Office Visit [facility] [address] [facility] [place] [address] Colt Mendieta, DPM [address] [facility] 5 [place] [address] documented as of this encounter Visit Diagnoses Not on filedocumented in this encounter Care Teams Car Restorer Relationship Specialty Start Date End Date Shawn Barber MD [address] [place] [place] [address] PCP - ACO Reach 09/24/22 Shawn Barber MD [address] [facility] 110 [place] [address] PCP - General Internal Medicine 10/22/22WednesdayRandee LPN [address] [facility] 110 [place] [address] Licensed Practical Nurse Family Medicine 12/29/22 06/09/24 Becca Campos LSW Tile Mechanic Helper Family Medicine 12/29/22 08/24/24 Hilary Frank, RN Licensed Practical Nurse Family Medicine 06/09/24 07/21/24 Kaylen Moore LPN 07/21/24 documented as of this encounter
--- OUTSIDE RECORDS SUMMARY | 2024-10-12 14:22 | XMS_ITS | Encounter Summary ---
Author Organization [facility] Address [address] [facility] [place] [address] Care Team Providers Care Systems Manager Name Role Phone Shawn Barber MD Unavailable [phone] Shawn Barber MD Primary Care Provider [phone] Wednesday, Randee SEGALN Unavailable [phone] Becca Campos TOOTH POLISHER Unavailable [phone] Hilary Frank RN Unavailable [phone] Kaylen Moore ASSISTANT MANAGER OF OPERATIONS Unavailable Unavailable Encounter Details Date Type Department Care Team (Late st Contact Info) Description 03/11/2023 Orders Only [facility] [address] [facility] [place] [address] A, Unknown Practice [address] [place], [place] [address] Social History Tobacco Use Types Packs/Day Years [...] How often do you attend chur or hinduism services? Never 01/29/2023 Do you belong to any clubs o r organizations such as mu-ism groups, unions, fraternal or athletic groups, or [...] Questionnaire-2 Score 1 11/25/2022 [facility] of Occupat ional Health - Occupational Stress [...] [address] [facility] 110 [place] [address] Shawn Barber MD [address] [facility] 110 [place] [address] 10/26/2024 2:50 PM EDT Office Visit [facility] [address] [facility] 120 [place] [address] Colt Mendieta, DPM 3[address] [facility] 5 [place] [address] documented as of this encounter Procedures Procedure Name Priority Date/Time Associated Diagnosis Comments ELECTROCARDIOGRAM REPORT Routine 023 12:48 PM EST documented in this encounter Results * Electrocardiogram Report (03/09/2023 12:48 PM EST) us Unknown Practice A IN CLINIC/BEDSIDE ORDERABLES Final Result documented in this encounter Visit Diagnoses Not on filedocumented in this encounter Care Teams Systems Manager Relationship Specialty Start Date End Date Shawn Barber MD [address] [place] [address] PCP - ACO Reach 09/24/22 Shawn Barber MD [address] [place] [address] PCP - General Internal Medicine 10/22/22Wednesday, NIKHIL Jeff [address] [place] [address] Licensed Practical Nurse Family Medicine 12/29/22 06/09/24 Becca Campos LSW Ad Writer Family Medicine 12/29/22 08/24/24 Hilary Frank, BENITO Licensed Practical Nurse Family Medicine 06/09/24 07/21/24 Kaylen Moore LPN 07/21/24 documented as of this encounter
--- OUTSIDE RECORDS SUMMARY | 2024-10-12 14:22 | XMS_ITS | Encounter Summary ---
Author Organization [facility] Address [address] [facility] [place] [address] Care Team Providers Care Customer Complaint Service Supervisor Name Role Phone Shawn Barber MD Unavailable [phone] Shawn Barber MD Primary Care Provider [phone] Wednesday, Randee TEJEDA Unavailable [phone] Becca Campos CARDROOM SUPERVISOR Unavailable [phone] Hilary Frank RN Unavailable [phone] Kaylen Moore FISH SALTER Unavailable Unavailable Encounter Details Date Type Department Care Team (Late st Contact Info) Description 02/15/2024 Abstract [facility] 112 [facility] 110 [place] [id number] Shawn Barber MD 112 [facility] 110 [place], [place] [address] Social History Tobacco Use Types Packs/Day Years [...] attend chur ch or gnosticism services? Never 12/06/2023 Do you belong to any clubs o r organizations such as temple groups, unions, fraternal or athletic groups, or [...] Health Questionnaire-2 Score 1 11/25/2022 [facility] - Occupational Stress Questionnaire [...] any time in the past 12 m [facility], were you homeless or living in a mcc (including now)? No 12/06/2023 Comments Unknown Sex [...] [address] [place] [address] Shawn Barber MD [address] 110 [place] [address] 10/26/2024 2:50 PM EDT Office Visit [facility] [address] [place] [address] Colt Mendieta, DPM 3006 [facility] 5 [place] [address] documented as of this encounter Visit Diagnoses Not on filedocumented in this encounter Care Teams Customer Complaint Service Supervisor Relationship Specialty Start Date End Date Shawn Barber MD [address] [place] [address] PCP - ACO Reach 09/24/22 Shawn Barber MD [address] [place] [address] PCP - General Internal Medicine 10/22/22WednesdayRandee LPN [address] [place] [address] Licensed Practical Nurse Family Medicine 12/29/22 06/09/24 Becca Campos LSW Shoulder Sawyer Family Medicine 12/29/22 08/24/24 Hilary Frank, RN Licensed Practical Nurse Family Medicine 06/09/24 07/21/24 Kaylen Moore LPN 07/21/24 documented as of this encounter
--- OUTSIDE RECORDS SUMMARY | 2024-10-12 14:23 | XMS_ITS | Encounter Summary ---
Author Organization [facility] Address [address] [facility] [place] [address] Care Team Providers Care Digital Marketing Lead Name Role Phone Shawn Barber MD Unavailable [phone] Shawn Barber MD Primary Care Provider [phone] Wednesday, Randee SEGALN Unavailable [phone] Becca Campos LAUNDRY OPERATOR FINISHING Unavailable [phone] Hilary Frank RN Unavailable [phone] Kaylen Moore LINE MAINTENANCE Unavailable Unavailable Encounter Details Date Type Department Care Team (Late st Contact Info) Description 03/22/2023 Abstract [facility] 112 [address] [facility] 110 [place] [id number] Shawn Barber MD 112 [facility] 110 [place] [address] Social History Tobacco Use Types [...] attend chur ch or presybeterian services? Never 01/29/2023 Do you belong to any clubs o r organizations such as pentecostal groups, unions, fraternal or athletic groups, or [...] Recorded Patient Health Questionnaire-2 Score 1 11/25/2022 [facility] [place] of Occupat ional Health - Occupational Stress [...] Visit [facility] [address] [facility] 110 [place] [address] Shawn Barber MD [address] [facility] 110 [place], [place] [address] 10/26/2024 2:50 PM EDT Office Visit [facility] [address] 120 [place] [address] Colt Mendieta, DPM 3006 [facility] 5 [place] [address] documented as of this encounter Visit Diagnoses Not on filedocumented in this encounter Care Teams Digital Marketing Lead Relationship Specialty Start Date End Date Shawn Barber MD [address] 110 [place] [address] PCP - ACO Reach 09/24/22 Shawn Barber MD [address] [facility] 110 [place] [address] PCP - General Internal Medicine 10/22/22WednesdayRandee LPN [address] [facility] 110 [place] [address] Licensed Practical Nurse Family Medicine 12/29/22 06/09/24 Becca Campos LSW Board Filler Family Medicine 12/29/22 08/24/24 Hilary Frank, RN Licensed Practical Nurse Family Medicine 06/09/24 07/21/24 Kaylen Moore LPN 07/21/24 documented as of this encounter
--- OUTSIDE RECORDS SUMMARY | 2024-10-12 14:23 | XMS_ITS | Encounter Summary ---
Author Organization [facility] Address [address] [facility] [place] [address] Care Team Providers Care Anesthesia Attending Name Role Phone Shawn Barber MD Unavailable [phone] Shawn Barber MD Primary Care Provider Becca Campos BASTING MARKER Unavailable [phone] Hilary Frank RN Unavailable [phone] Kaylen Moore LPN Unavailable Unavailable Encounter Details Date Type Department Care Team (Late st Contact Info) Description 06/23/2024 Abstract [facility] 112 [facility] 110 [place] [address] Shawn Barber MD 112 [facility] 110 [place], [place] [id number] Social History Tobacco Use Types Packs/Day Years [...] often do you attend chur ch or taoism services? Never 12/06/2023 Do you belong to [...] Recorded Patient Health Questionnaire-2 Score 1 11/25/2022 [facility] [place] of Occupat ional Health - Occupational Stress [...] 10/23/2024 2:00 PM EDT Office Visit [facility] [address] [place] [address] [place] [address] Shawn Barber MD [address] [facility] 110 [place] [address] 10/26/2024 2:50 PM EDT Office Visit [facility] [address] [place] [address] [place] [address] Colt Mendieta, DPChris 3006 [facility] 5 [place] [address] documented as of this encounter Visit Diagnoses Not on filedocumented in this encounter Care Teams Anesthesia Attending Relationship Specialty Start Date End Date Shawn Barber MD [address] [facility] 110 [place] [address] PCP - ACO Reach 09/24/22 Shawn Barber MD [address] [facility] 110 [place] [address] PCP - General Internal Medicine 10/22/22 Becca Campos LSW Manager Work Family Medicine 12/29/22 08/24/24 Hilary Frank, RN Licensed Practical Nurse Family Medicine 06/09/24 07/21/24 Kaylen Moore LPN 07/21/24 documented as of this encounter
--- OUTSIDE RECORDS SUMMARY | 2024-10-12 14:23 | XMS_ITS | Encounter Summary ---
Author Organization [facility] Address [address] [facility] [place] [address] Care Team Providers Care Secondary Social Studies Teacher Name Role Phone Shawn Barber MD Unavailable [phone] Shawn Barber MD Primary Care Provider [phone] Becca Campos ICE GUARD INSPECTOR Unavailable [phone] Hilary Frank RN Unavailable [phone] Kaylen Moore LPN Unavailable Unavailable Encounter Details Date Type Department Care Team (Late st Contact Info) Description 07/10/2024 Abstract [facility] 112 [facility] 110 [place] [address] Shawn Barber MD 112 [facility] 110 [place], [place] [address] Social History Tobacco Use Types Packs/Day Years [...] attend chur ch or nondenominational services? Never 12/06/2023 Do you belong to [...] Recorded Patient Health Questionnaire-2 Score 1 11/25/2022 [facility] [place] of Occupat ional Health - Occupational Stress [...] any time in the past 12 m [facility], were you homeless or living in a assisted (including now)? No 12/06/2023 Comments Unknown Sex and Gender Information Value Date Recorded Sex Assigned at Not on file Legal Sex Female 6:46 PM EDT Gender Identity Not on file Sexual Orientation Not on file documented as of this encounter Plan of Treatment Upcoming Encounters Date Type Department Care Team (Late st Contact Info) Description 10/23/2024 2:00 PM EDT Office Visit [facility] [address] [place] [address] [place] [address] Shawn Barber MD [address] [facility] 110 [place] [address] 10/26/2024 2:50 PM EDT Office Visit [facility] [address] [place] [address] [place] [address] Colt Mendieta, DPChris 3006 [facility] 5 [place] [address] documented as of this encounter Visit Diagnoses Not on filedocumented in this encounter Care Teams Secondary Social Studies Teacher Relationship Specialty Start Date End Date Shawn Barber MD [address] [facility] 110 [place] [address] PCP - ACO Reach 09/24/22 Shawn Barber MD [address] [facility] 110 [place] [address] PCP - General Internal Medicine 10/22/22 Becca Campos LSW Handstitching Machine Collar Feller Family Medicine 12/29/22 08/24/24 Hilary Frank, RN Licensed Practical Nurse Family Medicine 06/09/24 07/21/24 Kaylen Moore LPN 07/21/24 documented as of this encounter
--- OUTSIDE RECORDS SUMMARY | 2024-10-12 14:23 | XMS_ITS | Encounter Summary ---
Author Organization [facility] Address [address] [facility] [place] [address] Care Team Providers Care Stone Driller Helper Name Role Phone Shawn Barber MD Unavailable [phone] Shawn Barber MD Primary Care Provider [phone] Wednesday, Randee SEGALN Unavailable [phone] Becca Campos MARKETING SERVICES SPECIALIST Unavailable [phone] Hilary Frank RN Unavailable [phone] Kaylen Moore DATASTAGE CONSULTANT Unavailable Unavailable Encounter Details Date Type Department Care Team (Late st Contact Info) Description 03/30/2023 Abstract [facility] 112 [address] [facility] 110 [place] [address] Shawn Barber MD 112 [facility] 110 [place] [address] Social History Tobacco Use Types [...] often do you attend chur ch or evangelical services? Never 01/29/2023 Do you belong to [...] Recorded Patient Health Questionnaire-2 Score 1 11/25/2022 [facility] [place] of Occupat ional Health - Occupational [...] Visit [facility] [address] [facility] 110 [place] [address] Shawn Barber MD [address] [facility] 110 [place], [place] [address] 10/26/2024 2:50 PM EDT Office Visit [facility] [address] [place] [address] Colt Mendieta, DPM 3006 [facility] 5 [place] [address] documented as of this encounter Visit Diagnoses Not on filedocumented in this encounter Care Teams Stone Driller Helper Relationship Specialty Start Date End Date Shawn Barber MD [address] 110 [place] [address] PCP - ACO Reach 09/24/22 Shawn Barber MD [address] [facility] 110 [place] [address] PCP - General Internal Medicine 10/22/22WednesdayRandee LPN [address] [facility] 110 [place] [address] Licensed Practical Nurse Family Medicine 12/29/22 06/09/24 Becca Campos LSW Scorer Helper Family Medicine 12/29/22 08/24/24 Hilary Frank, RN Licensed Practical Nurse Family Medicine 06/09/24 07/21/24 Kaylen Moore LPN 07/21/24 documented as of this encounter
--- OUTSIDE RECORDS SUMMARY | 2024-10-12 14:23 | XMS_ITS | Encounter Summary ---
Author Organization [facility] Address [address] [facility] [place] [address] Care Team Providers Care Cyber Systems Administrator Name Role Phone Shawn Barber MD Unavailable Shawn Barber MD Primary Care Provider Becca Campos COOK RELIEF Unavailable [phone] Hilary Frank RN Unavailable [phone] Kaylen Moore LPN Unavailable Unavailable Encounter Details Date Type Department Care Team (Late st Contact Info) Description 07/18/2024 Abstract [facility] 112 [facility] 110 [place] [address] Shawn Barber MD 112 [facility] 110 [place], [place] [address] Social History Tobacco Use Types Packs/Day Years [...] often do you attend chur ch or mandaeism services? Never 12/06/2023 Do you belong to [...] Health Questionnaire-2 Score 1 11/25/2022 [facility] [place] of Occupat ional Health - Occupational Stress [...] place to sleep or slept in a nursing home (including now)? No 01/29/2023 Housing Stability [...] were you homeless or living in a nursing home (including now)? No 12/06/2023 Comments Unknown Sex and Gender Information Value Date Recorded Sex Assigned at Not on file Legal Sex Female 6:46 PM EDT Gender Identity Not on file Sexual Orientation Not on file documented as of this encounter Plan of Treatment Upcoming Encounters Date Type Department Care Team (Late st Contact Info) Description 10/23/2024 2:00 PM EDT Office Visit [facility] [address] [place] [place] [address] Shawn Barber MD [address] [facility] 110 [place] [address] 10/26/2024 2:50 PM EDT Office Visit [facility] [address] [place] [address] [place] [address] Colt Mendieta, DPChris 3006 [facility] 5 [place] [address] documented as of this encounter Visit Diagnoses Not on filedocumented in this encounter Care Teams Cyber Systems Administrator Relationship Specialty Start Date End Date Shawn Barber MD [address] [facility] 110 [place] [address] PCP - ACO Reach 09/24/22 Shawn Barber MD [address] [facility] 110 [place] [address] PCP - General Internal Medicine 10/22/22 Becca Campos LSW Corporate Events Director Family Medicine 12/29/22 08/24/24 Hilary Frank, RN Licensed Practical Nurse Family Medicine 06/09/24 07/21/24 Kaylen Moore LPN 07/21/24 documented as of this encounter
--- OUTSIDE RECORDS SUMMARY | 2024-10-12 14:23 | XMS_ITS | Encounter Summary ---
Author Organization [facility] Address [address] [facility] [place] [address] Care Team Providers Care Test Development Engineer Name Role Phone Shawn Barber MD Unavailable [phone] Shawn Barber MD Primary Care Provider Becca Campos DIRECTOR OF FUNDRAISING Unavailable [phone] Hilary Frank RN Unavailable [phone] Kaylen Moore LPN Unavailable Unavailable Encounter Details Date Type Department Care Team (Late st Contact Info) Description 06/14/2024 Abstract [facility] 112 [facility] 110 [place] [address] Shawn Barber MD 112 [facility] 110 [place], [place] [id number] Social History Tobacco Use Types Packs/Day Years [...] often do you attend chur ch or synagogue services? Never 12/06/2023 Do you belong to [...] Recorded Patient Health Questionnaire-2 Score 1 11/25/2022 [facility] [place] of Occupat ional Health - Occupational Stress [...] any time in the past 12 m [facility], were you homeless or living in [...] 10/23/2024 2:00 PM EDT Office Visit [facility] [address] [place] [place] [address] Shawn Barber MD [address] [facility] 110 [place] [address] 10/26/2024 2:50 PM EDT Office Visit [facility] [address] [place] [address] [place] [address] Colt Mendieta, DPChris 3006 [facility] 5 [place] [address] documented as of this encounter Visit Diagnoses Not on filedocumented in this encounter Care Teams Test Development Engineer Relationship Specialty Start Date End Date Shawn Barber MD [address] [facility] 110 [place] [address] PCP - ACO Reach 09/24/22 Shawn Barber MD [address] [facility] 110 [place] [address] PCP - General Internal Medicine 10/22/22 Becca Campos LSW Network Analyst Family Medicine 12/29/22 08/24/24 Hilary Frank, RN Licensed Practical Nurse Family Medicine 06/09/24 07/21/24 Kaylen Moore LPN 07/21/24 documented as of this encounter
--- OUTSIDE RECORDS SUMMARY | 2024-10-12 14:23 | XMS_ITS | Encounter Summary ---
Author Organization [facility] Address [address] [facility] [place] [address] Care Team Providers Care Powerhouse Attendant Name Role Phone Shawn Barber MD Unavailable [phone] Shawn Barber MD Primary Care Provider [phone] Wednesday, Randee SEGALN Unavailable [phone] Becca Campos SCHOOL TRANSPORTATION SUPERVISOR Unavailable [phone] Hilary Frank RN Unavailable [phone] Kaylen Moore MARGARINE MAKER Unavailable Unavailable Encounter Details Date Type Department Care Team (Late st Contact Info) Description 10/13/2022 Orders Only [facility] [address] [facility] 110 [place] [address] Shawn Barber MD [address] [facility] 110 [place] [address] Social History Tobacco Use Types Packs/Day Years Used Date Smoking Tobacco: Never Assessed Comments Unknown Sex and Gender Information Value [...] CI FM [address] [place] [address] Shawn Barber MD [address] [facility] 110 [place], [place] [address] 10/26/2024 2:50 PM EDT Office Visit [facility] [address] [address] [place] [address] Colt Mendieta, DPChris 3006 [facility] 5 [place] [address] documented as of this encounter Procedures Procedure Name Priority Date/Time Associated Diagnosis Comments XR CHEST 1 VIEW Routine 10/08/2022 11:44 AM EDT documented in this encounter Results * XR chest 1 view (10/08/2022 11:44 AM EDT) Anatomical Region Laterality Modality Chest Radiographic Bhavya ging Shawn Barber MD IMG XR PROCEDURES Final Result documented in this encounter Visit Diagnoses Not on filedocumented in this encounter Care Teams Powerhouse Attendant Relationship Specialty Start Date End Date Shawn Barber MD [address] [place] [address] PCP - ACO Reach 09/24/22 Shawn Barber MD [address] [place] [address] PCP - General Internal Medicine 10/22/22Wednesday, NIKHIL Jeff [address] [place] [address] Licensed Practical Nurse Family Medicine 12/29/22 06/09/24 Becca Campos LSW Cut File Clerk Family Medicine 12/29/22 08/24/24 Hilary Frank, BENITO Licensed Practical Nurse Family Medicine 06/09/24 07/21/24 Kaylen Moore LPN 07/21/24 documented as of this encounter
--- OUTSIDE RECORDS SUMMARY | 2024-10-12 14:23 | XMS_ITS | Encounter Summary ---
Author Organization [facility] Address [address] [facility] [place] [address] Care Team Providers Care Rn Testing Name Role Phone Shawn Barber MD Unavailable [phone] Shawn Barber MD Primary Care Provider [phone] Becca Campos BLUEPRINT MAKER Unavailable [phone] Hilary Frank RN Unavailable [phone] Kaylen Moore LPN Unavailable Unavailable Encounter Details Date Type Department Care Team (Late st Contact Info) Description 06/15/2024 Abstract [facility] 112 [facility] 110 [place] [address] Shawn Barber MD 112 [facility] 110 [place], [place] [address] Social History Tobacco Use Types Packs/Day Years [...] Recorded Patient Health Questionnaire-2 Score 1 11/25/2022 [facility] [place] of Occupat ional Health - Occupational Stress [...] any time in the past 12 m [facility], were you homeless or [...] 10/23/2024 2:00 PM EDT Office Visit [facility] [address] [place] [place] [address] Shawn Barber MD [address] [facility] 110 [place] [address] 10/26/2024 2:50 PM EDT Office Visit [facility] [address] [place] [address] [place] [address] Colt Mendieta, DPChris 3006 [facility] 5 [place] [address] documented as of this encounter Visit Diagnoses Not on filedocumented in this encounter Care Teams Rn Testing Relationship Specialty Start Date End Date Shawn Barber MD [address] [facility] 110 [place] [address] PCP - ACO Reach 09/24/22 Shawn Barber MD [address] [facility] 110 [place] [address] PCP - General Internal Medicine 10/22/22 Becca Campos LSW Water Engineer Family Medicine 12/29/22 08/24/24 Hilary Frank, RN Licensed Practical Nurse Family Medicine 06/09/24 07/21/24 Kaylen Moore LPN 07/21/24 documented as of this encounter
--- OUTSIDE RECORDS SUMMARY | 2024-10-12 14:23 | XMS_ITS | Encounter Summary ---
Author Organization [facility] Address [address] [facility] [place] [address] Care Team Providers Care Process Steward Name Role Phone Shawn Barber MD Unavailable [phone] Shawn Barber MD Primary Care Provider [phone] Becca Campos BACTERIOLOGIST FOOD Unavailable [phone] Kaylen Moore LPN Unavailable Unavailable Encounter Details Date Type Department Care Team (Late st Contact Info) Description 08/17/2024 Abstract [facility] 112 [facility] 110 [place] [address] Shawn Barber MD 112 [facility] 110 [place], [place] [address] Social History Tobacco Use Types Packs/Day Years [...] attend chur ch or adventism services? Never 12/06/2023 Do you belong to [...] Questionnaire-2 Score 1 11/25/2022 [facility] [place] of Occupat ional Health - Occupational Stress [...] any time in the past 12 m [facility], were you homeless or living in [...] 10/23/2024 2:00 PM EDT Office Visit [facility] 112 [facility] 110 [place] [address] Shawn Barber MD [address] [facility] 110 [place] [address] 10/26/2024 2:50 PM EDT Office Visit [facility] [address] [facility] [address] [place] [phone] Colt Mendieta, DPM 3006 [facility] 5 [place] [address] documented as of this encounter Visit Diagnoses Not on filedocumented in this encounter Care Teams Process Steward Relationship Specialty Start Date End Date Shawn Barber MD [address] [facility] [address] [place] [address] PCP - ACO Reach 09/24/22 Shawn Barber MD 112 [facility] 110 [place] [address] PCP - General Internal Medicine 10/22/22 Becca Campos LSW Bench Assembly Inspector Family Medicine 12/29/22 08/24/24 Kaylen Moore LPN 07/21/24 documented as of this encounter
--- OUTSIDE RECORDS SUMMARY | 2024-10-12 14:23 | XMS_ITS | Encounter Summary ---
Author Organization [facility] Address [address] [facility] [place] [address] Care Team Providers Care Painter Structural Steel Name Role Phone Shawn Barber MD Unavailable [phone] Shawn Barber MD Primary Care Provider [phone] Wednesday, Randee REPAIRER CONTROLLER TESTER Unavailable [phone] Becca Campos LEVELING MACHINE OPERATOR Unavailable [phone] Hilary Frank RN Unavailable [phone] Kaylen Moore REPAIRER CONTROLLER TESTER Unavailable Unavailable Encounter Details Date Type Department Care Team (Late st Contact Info) Description 10/13/2022 Abstract [facility] [address] [facility] 110 [place] [address] Shawn Barber MD [address] [facility] 110 [place] [address] Social History Tobacco Use Types Packs/Day Years [...] [address] [facility] 110 [place] [address] Shawn Barber MD [address] [facility] 110 [place], [place] [address] 10/26/2024 2:50 PM EDT Office Visit [facility] [address] [place] 120 [place] [address] Colt Mendieta, DPM 3006 [facility] 5 [place] [address] documented as of this encounter Visit Diagnoses Not on filedocumented in this encounter Care Teams Painter Structural Steel Relationship Specialty Start Date End Date Shawn Barber MD [address] [place] [address] [place] [address] PCP - ACO Reach 09/24/22 Shawn Barber MD [address] [place] [place] [address] PCP - General Internal Medicine 10/22/22WednesdayRandee LPN [address] [place] [address] Licensed Practical Nurse Family Medicine 12/29/22 06/09/24 Becca Campos LSW Case Manager Family Medicine 12/29/22 08/24/24 Hilary Frank, RN Licensed Practical Nurse Family Medicine 06/09/24 07/21/24 Kaylen Moore LPN 07/21/24 documented as of this encounter
--- OUTSIDE RECORDS SUMMARY | 2024-10-12 14:23 | XMS_ITS | Encounter Summary ---
Author Organization [facility] Address [address] [facility] [place] [address] Care Team Providers Care Car Loader Name Role Phone Shawn Barber MD Unavailable [phone] Shawn Barber MD Primary Care Provider [phone] Wednesday, Randee SEGALN Unavailable [phone] Becca Campos CLEAN RICE GRADER AND REEL TENDER Unavailable [phone] Hilary Frank RN Unavailable [phone] Kaylen Moore BUDGET RECORD CLERK Unavailable Unavailable Encounter Details Date Type Department Care Team (Late st Contact Info) Description 03/24/2023 Orders Only [facility] [address] [facility] 110 [place] [address] A, Unknown Practice [address] [place], [place] [address] Social History Tobacco Use Types Packs/Day Years [...] any clubs o r organizations such as faith groups, unions, fraternal or athletic groups, or [...] Recorded Patient Health Questionnaire-2 Score 1 11/25/2022 [facility] of Occupat ional Health - Occupational [...] Visit [facility] [address] [facility] 110 [place] [address] Shawn Barber MD [address] [facility] 110 [place] [address] 10/26/2024 2:50 PM EDT Office Visit [facility] [address] [facility] 120 [place] [address] Colt Mendieta, DPM 3006 [facility] 5 [place] [address] documented as of this encounter Procedures Procedure Name Priority Date/Time Associated Diagnosis Comments XR CHEST 1 VIEW Routine 03/21/2023 10:09 AM EST documented in this encounter Results * XR chest 1 view (03/21/2023 10:09 AM EST) Anatomical Region Laterality Modality Chest Radiographic Bhavya ging us Unknown Practice A IMG XR PROCEDURES Final Resul t documented in this encounter Visit Diagnoses Not on filedocumented in this encounter Care Teams Car Loader Relationship Specialty Start Date End Date Shawn Barber MD [address] [facility] 110 [place] [address] PCP - ACO Reach 09/24/22 Shawn Barber MD [address] [facility] 110 [place] [address] PCP - General Internal Medicine 10/22/22Wednesday, NIKHIL Jeff [address] [facility] 110 [place] [address] Licensed Practical Nurse Family Medicine 12/29/22 06/09/24 Becca Campos LSW Cost Analyst Family Medicine 12/29/22 08/24/24 Hilary Frank, RN Licensed Practical Nurse Family Medicine 06/09/24 07/21/24 Kaylen Moore LPN 07/21/24 documented as of this encounter
--- OUTSIDE RECORDS SUMMARY | 2024-10-12 14:23 | XMS_ITS | Encounter Summary ---
Author Organization [facility] Address [address] [facility] [place] [address] Care Team Providers Care Pastry Finisher Name Role Phone Shawn Barber MD Unavailable [phone] Shawn Barber MD Primary Care Provider [phone] Wednesday, Randee SEGALN Unavailable [phone] Becca Campos SCHOOL BASED THERAPIST Unavailable [phone] Hilary Frank RN Unavailable [phone] Kaylen Moore SOC ANALYST Unavailable Unavailable Encounter Details Date Type Department Care Team (Late Contact Info) Description 11/11/2022 Abstract [facility] [address] [facility] 110 [place] [phone] [place] [address] [facility] 110 [place], [place] [phone] Social History Tobacco Use Types Packs/Day Years Used Date Smoking Tobacco: Every Day Cigarettes Smokeless Tobacco: Never Alcohol Use Standard Drinks/Week Comments Not Currently 0 (1 standard drink = 0.6 oz pur e alcohol) Comments Unknown Sex and Gender Information Value Date Recorded Sex Assigned at Not on file Legal Sex Female 6:46 PM EDT Gender Identity Not on file Sexual Orientation Not on file documented as of this encounter Plan of Treatment Upcoming Encounters Date Type Department Care Team (Late Contact Info) Description 10/23/2024 2:00 PM EDT Office Visit [facility] [address] [facility] 110 [place] [address] Shawn Barber MD [address] [place] [address] 10/26/2024 2:50 PM EDT Office Visit [facility] [address] [place] [address] Colt Mendieta, DPM 3006 [facility] 5 [place] [address] documented as of this encounter Visit Diagnoses Not on filedocumented in this encounter Care Teams Pastry Finisher Relationship Specialty Start Date End Date Shawn Barber MD [address] [place] [address] PCP - ACO Reach 09/24/22 Shawn Barber MD [address] [place] [place] [address] PCP - General Internal Medicine 10/22/22Wednesday, NIKHIL Jeff [address] [place] [address] Licensed Practical Nurse Family Medicine 12/29/22 06/09/24 Becca Campos LSW Neon Installer Family Medicine 12/29/22 08/24/24 Hilary Frank, BENITO Licensed Practical Nurse Family Medicine 06/09/24 07/21/24 Kaylen Moore LPN 07/21/24 documented as of this encounter
--- OUTSIDE RECORDS SUMMARY | 2024-10-12 14:23 | XMS_ITS | Encounter Summary ---
Author Organization [facility] Address [address] [facility] [place] [address] Care Team Providers Care Merchandise Collector Name Role Phone Shawn Barber MD Unavailable [phone] Shawn Barber MD Primary Care Provider [phone] Wednesday, Randee SEGALN Unavailable [phone] Becca Campos ERP CONSULTANT Unavailable [phone] Hilary Frank RN Unavailable [phone] Kaylen Moore HEAD TRANSFER CLERK Unavailable Unavailable Encounter Details Date Type Department Care Team (Late st Contact Info) Description 03/23/2023 Orders Only [facility] [address] [place] [address] [place] [address] A, Unknown Practice [address] [place], [place] [address] Social History Tobacco Use Types Packs/Day Years [...] How often do you attend chur or scientologist services? Never 01/29/2023 Do you belong to [...] Score 1 11/25/2022 [facility] of Occupat ional Health - [...] [facility] [address] [facility] 110 [place] [address] Shawn Barber MD [address] [facility] 110 [place] [address] 10/26/2024 2:50 PM EDT Office Visit [facility] [address] [facility] 120 [place] [address] Colt Mendieta, DPChris 3006 [facility] 5 [place] [address] documented as of this encounter Procedures Procedure Name Priority Date/Time Associated Diagnosis Comments ELECTROCARDIOGRAM REPORT Routine 023 9:05 AM EST documented in this encounter Results * Electrocardiogram Report (03/21/2023 9:05 AM EST) us Unknown Practice A IN CLINIC/BEDSIDE ORDERABLES Final Result documented in this encounter Visit Diagnoses Not on filedocumented in this encounter Care Teams Merchandise Collector Relationship Specialty Start Date End Date Shawn Barber MD [address] [place] [place] [address] PCP - ACO Reach 09/24/22 Shawn Barber MD [address] [place] [place] [address] PCP - General Internal Medicine 10/22/22Wednesday, NIKHIL Jeff [address] [place] [address] Licensed Practical Nurse Family Medicine 12/29/22 06/09/24 Becca Campos LSW Mexican Food Machine Tender Family Medicine 12/29/22 08/24/24 Hilary Frank, BENITO Licensed Practical Nurse Family Medicine 06/09/24 07/21/24 Kaylen Moore LPN 07/21/24 documented as of this encounter
--- OUTSIDE RECORDS SUMMARY | 2024-10-12 14:23 | XMS_ITS | Encounter Summary ---
Author Organization [facility] Address [address] [facility] [place] [address] Care Team Providers Care Janitorial Account Manager Name Role Phone Shawn Barber MD Unavailable [phone] Shawn Barber MD Primary Care Provider [phone] Wednesday, Randee TEJEDA Unavailable [phone] Becca Campos TANK PUMPER Unavailable [phone] Hilary Frank RN Unavailable [phone] Kaylen Moore KILN TESTER Unavailable Unavailable Encounter Details Date Type Department Care Team (Late st Contact Info) Description 04/13/2023 Clinisync Result Encounter [facility] External Department Unsolicited Shawn Barber MD [address] [place] [address] Social History Tobacco Use Types [...] How often do you attend chur or judaism services? Never 01/29/2023 Do you belong to any clubs o r organizations such as spiritism groups, unions, fraternal or athletic groups, or [...] Health Questionnaire-2 Score 1 11/25/2022 [facility] of Occupat ional Health - Occupational [...] money to buy more. Never true 01/30/20 Within the past 12 months, t he [...] Visit [facility] [address] [facility] 110 [place] [address] Shawn Barber MD [address] [place] [place], [place] [address] 10/26/2024 2:50 PM EDT Office Visit [facility] [address] [place] [place] [address] Colt Mendieta DPM [address] [address] documented as of this encounter Procedures Procedure Name Priority Date/Time Associated Diagnosis Comments BI MAMMOGRAM SCREENING BILATERAL 04/13/2023 7:33 AM EST documented in this encounter Results * Bilateral screening mammogram (04/13/2023 7:33 AM EST) Anatomical Region Laterality Modality Breast Bilateral Mammography 04/13/2023 7:33 AM EST Narrative 04/13/2023 7:35 [place] [address] Mammography Report Signed Patient: MARTIN MOORE MR#: [id number] : 1950 Acct:[id number] Age/Sex: 72 / F ADM Date: 04/12/23 Loc: MAMMO Attending Dr: SHAWN BARBER Ordering Physician: SHAWN BARBER Results: Date of Service: 04/12/23 Follow Up: Procedure(s): MM screening mammo BI Accession Number(s): [id number] cc: SHAWN BARBER Patient Name: MARTIN MOORE MR#: [id number] : 1950 Exam Date: 04/12/2023 Ordering Doctor: DR SHAWN BARBER M.D. RADIOLOGY REPORT PROCEDURE: MM SCREENING MAMMO BI COMPARISON: MG MAMM SCREEN PAUL W CAD, 05/30/2020. MG MAMM SCREEN PAUL W CAD, 03/31/2019. INDICATIONS: Screening Calculator Name NCI Breast Cancer Risk Assessment Tool 5 Year Breast Cancer Risk 1.90% Lifetime Breast Cancer Risk 4.30% Personal Breast Cancer No Personal Ovarian Cancer No Treatments None Family Cancers None LOCATION: [facility] BREAST COMPOSITION: Almost entirely fatty. FINDINGS: DIAGNOSTIC CATEGORY 1--NEGATIVE. NO CHANGE FROM COMPARISON ASSESSMENT. Scattered benign-appearing calcifications are present. Scattered benign-appearing lymph nodes are present. RIGHT BREAST: No significant suspicious finding. LEFT BREAST: No significant suspicious finding. RECOMMENDATIONS: ROUTINE MAMMOGRAM AND CLINICAL EVALUATION IN 12 MONTHS. PLEASE NOTE: A NORMAL MAMMOGRAM DOES NOT EXCLUDE THE POSSIBILITY OF BREAST CANCER. A CLINICALLY SUSPICIOUS PALPABLE LUMP SHOULD BE BIOPSIED. Dictated by: Eitan Blackwell MD on 04/13/2023 at 07:32 Approved by: Eitan Blackwell MD on 04/13/2023 at 07:33 Dictated By: Eitan Blackwell M.D. Signed By: 04/13/2335 DD/ 2 TD/TT: Wooden Tank Erector: Procedure Note Radiology, Radiologist, MD - 04/13/2023 [place] [address] Mammography Report Signed Patient: MARTIN MOORE MMR#: [id number] : 1950cct:[id number] Age/Sex: 72 / FADM Date: 04/12/23 Loc: MAMMO Attending Dr: SAHWN BARBER Ordering Physician: SHAWN BARBERResults: Date of Service: 04/12/23Follow Up: Procedure(s): MM screening mammo BI Accession Number(s): [id number] cc: SHAWN BARBER Patient Name: MARTIN MOORE MR#: [id number] : 1950 Exam Date: 04/12/2023 Ordering Doctor: DR SHAWN BARBER M.D. RADIOLOGY REPORT PROCEDURE: MM SCREENING MAMMO BI COMPARISON: MG MAMM SCREEN PAUL W CAD, 05/30/2020. MG MAMM SCREEN PAUL W CAD, 03/31/2019. INDICATIONS: Screening Calculator Name NCI Breast Cancer Risk Assessment Tool 5 Year Breast Cancer Risk 1.90% Lifetime Breast Cancer Risk 4.30% Personal Breast Cancer No Personal Ovarian Cancer No Treatments None Family Cancers None LOCATION: [facility] BREAST COMPOSITION: Almost entirely fatty. FINDINGS: DIAGNOSTIC CATEGORY 1--NEGATIVE. NO CHANGE FROM COMPARISON ASSESSMENT. Scattered benign-appearing calcifications are present. Scattered benign-appearing lymph nodes are present. RIGHT BREAST: No significant suspicious finding. LEFT BREAST: No significant suspicious finding. RECOMMENDATIONS: ROUTINE MAMMOGRAM AND CLINICAL EVALUATION IN 12 MONTHS. PLEASE NOTE: A NORMAL MAMMOGRAM DOES NOT EXCLUDE THE POSSIBILITY OFBREAST CANCER. A CLINICALLY SUSPICIOUS PALPABLE LUMP SHOULD BE BIOPSIED. Dictated by: Eitan Blackwell MD on 04/13/2023 at 07:32 Approved by: Eitan Blackwell MD on 04/13/2023 at 07:33 Dictated By: Eitan Blackwell M.D. Signed By:04/13/2335 DD/ TD/TT: Wooden Tank Erector: us Shawn Barber MD IMG BI PROCEDURES Final Result documented in this encounter Visit Diagnoses Not on filedocumented in this encounter Care Teams Janitorial Account Manager Relationship Specialty Start Date End Date Shawn Barber MD [address] [place] [address] PCP - ACO Reach 09/24/22 Shawn Barber MD [address] [place] [address] PCP - General Internal Medicine 10/22/22Wednesday, NIKHIL Jeff [address] [place] [address] Licensed Practical Nurse Family Medicine 12/29/22 06/09/24 Becca Campos LSW Instrument Tech Family Medicine 12/29/22 08/24/24 Hilary Frank, RN Licensed Practical Nurse Family Medicine 06/09/24 07/21/24 Kaylen Moore LPN 07/21/24 documented as of this encounter
--- OUTSIDE RECORDS SUMMARY | 2024-10-12 14:23 | XMS_ITS | Encounter Summary ---
Author Organization [facility] Address [address] [facility] [place] [address] Care Team Providers Care Souvenir Street Vendor Name Role Phone Shawn Barber MD Unavailable [phone] Shawn Barbre MD Primary Care Provider [phone] Wednesday, Randee SEGALN Unavailable [phone] Becca Campos BABY DOCTOR Unavailable [phone] Hilary Frank RN Unavailable [phone] Kaylen Moore SKYDIVING INSTRUCTOR Unavailable Unavailable Encounter Details Date Type Department Care Team (Late st Contact Info) Description 03/23/2023 Abstract [facility] [address] [facility] 110 [place] [phone] Shawn Barber MD 112 [facility] 110 [place] [address] Social History Tobacco Use Types [...] Recorded Patient Health Questionnaire-2 Score 1 11/25/2022 [facility] of Occupat ional Health - Occupational Stress [...] Visit [facility] [address] [facility] 110 [place] [address] Shawn Barber MD [address] [facility] 110 [place], [place] [address] 10/26/2024 2:50 PM EDT Office Visit [facility] [address] [place] [address] Colt Mendieta, DPM 3006 [facility] 5 [place] [address] documented as of this encounter Visit Diagnoses Not on filedocumented in this encounter Care Teams Souvenir Street Vendor Relationship Specialty Start Date End Date Shawn Barber MD [address] [place] [address] [place] [address] PCP - ACO Reach 09/24/22 Shawn Barber MD [address] [facility] 110 [place] [address] PCP - General Internal Medicine 10/22/22WednesdayRandee LPN [address] [facility] 110 [place] [address] Licensed Practical Nurse Family Medicine 12/29/22 06/09/24 Becca Campos LSW Enrollment Counselor Family Medicine 12/29/22 08/24/24 Hilary Frank, RN Licensed Practical Nurse Family Medicine 06/09/24 07/21/24 Kaylen Moore LPN 07/21/24 documented as of this encounter
--- OUTSIDE RECORDS SUMMARY | 2024-10-12 14:23 | XMS_ITS | Encounter Summary ---
Author Organization [facility] Address [address] [facility] [place] [address] Care Team Providers Care Vice President Quality Assurance Name Role Phone Shawn Barber MD Unavailable [phone] Shawn Barber MD Primary Care Provider [phone] Wednesday, Randee SEGALN Unavailable [phone] Becca Campos STAKE DRIVER Unavailable [phone] Hilary Frank RN Unavailable [phone] Kaylen Moore MAINTENANCE TECHNICIAN 3RD SHIFT Unavailable Unavailable Encounter Details Date Type Department Care Team (Late st Contact Info) Description 03/24/2023 Abstract [facility] [address] [facility] 110 [place] [phone] Shawn Barber MD 112 [facility] 110 [place] [address] Social History Tobacco Use [...] Recorded Patient Health Questionnaire-2 Score 1 11/25/2022 [facility] of Occupat ional Health - Occupational Stress [...] Visit [facility] [address] [facility] 110 [place] [address] Shawn Barber MD [address] [facility] 110 [place], [place] [address] 10/26/2024 2:50 PM EDT Office Visit [facility] [address] [place] [address] Colt Mendieta, DPM 3006 [facility] 5 [place] [address] documented as of this encounter Visit Diagnoses Not on filedocumented in this encounter Care Teams Vice President Quality Assurance Relationship Specialty Start Date End Date Shawn Barber MD [address] [place] [address] PCP - ACO Reach 09/24/22 Shawn Barber MD [address] [facility] 110 [place] [address] PCP - General Internal Medicine 10/22/22WednesdayRandee LPN [address] [facility] 110 [place] [address] Licensed Practical Nurse Family Medicine 12/29/22 06/09/24 Becca Campos LSW Supervisor Plate Pasting Family Medicine 12/29/22 08/24/24 Hilary Frank, RN Licensed Practical Nurse Family Medicine 06/09/24 07/21/24 Kaylen Moore LPN 07/21/24 documented as of this encounter
--- OUTSIDE RECORDS SUMMARY | 2024-10-12 14:23 | XMS_ITS | Encounter Summary ---
Author Organization [facility] Address [address] [facility] [place] [address] Care Team Providers Care Cardiac Care Unit Nurse Name Role Phone Shawn Barber MD Unavailable [phone] Shawn Barber MD Primary Care Provider [phone] Wednesday, Randee SEGALN Unavailable [phone] Becca Campos SMALL BUSINESS SALES REPRESENTATIVE Unavailable [phone] Hilary Frank RN Unavailable [phone] Kaylen Moore MARINE DRILLER Unavailable Unavailable Encounter Details Date Type Department Care Team (Late st Contact Info) Description 04/12/2023 Orders Only [facility] [address] [place] [address] A, Unknown Practice [address] [place], [place] [address] Social History Tobacco Use Types Packs/Day Years [...] How often do you attend chur or zoroastrianism services? Never 01/29/2023 Do you [...] [address] [facility] 110 [place] [address] Shawn Barber MD [address] [facility] 110 [place] [address] 10/26/2024 2:50 PM EDT Office Visit [facility] [address] [facility] 120 [place] [address] Colt Mendieta, DPM 3006 [facility] 5 [place] [address] documented as of this encounter Procedures Procedure Name Priority Date/Time Associated Diagnosis Comments SCANNED LABS Routine 04/09/2023 10:02 AM EST documented in this encounter Results * SCANNED LABS (04/09/2023 10:02 AM EST) us Unknown Practice A LAB CHG PERFORMABLES Final Re sult documented in this encounter Visit Diagnoses Not on filedocumented in this encounter Care Teams Cardiac Care Unit Nurse Relationship Specialty Start Date End Date Shawn Barber MD [address] [place] [address] PCP - ACO Reach 09/24/22 Shawn Barber MD [address] [place] [address] PCP - General Internal Medicine 10/22/22Wednesday, NIKHIL Jeff [address] [place] [address] Licensed Practical Nurse Family Medicine 12/29/22 06/09/24 Becca Campos LSW Kitchen Worker Family Medicine 12/29/22 08/24/24 Hilary Frank, BENITO Licensed Practical Nurse Family Medicine 06/09/24 07/21/24 Kaylen Moore LPN 07/21/24 documented as of this encounter
--- OUTSIDE RECORDS SUMMARY | 2024-10-12 14:23 | XMS_ITS | Encounter Summary ---
Author Organization [facility] Address [address] [facility] [place] [address] Care Team Providers Care Compressor Operator Name Role Phone Shawn Barber MD Unavailable [phone] Shawn Barber MD Primary Care Provider [phone] Wednesday, Randee SEGALN Unavailable [phone] Becca Campos AIR POLLUTION SPECIALIST Unavailable [phone] Hilary Frank RN Unavailable [phone] Kaylen Moore DEPUTY DISTRICT CUSTOMS DIRECTOR Unavailable Unavailable Encounter Details Date Type Department Care Team (Late st Contact Info) Description 03/22/2023 Abstract [facility] [address] [facility] 110 [place] [id number] Shawn Barber MD 112 [facility] 110 [place] [address] Social History Tobacco Use Types [...] Recorded Patient Health Questionnaire-2 Score 1 11/25/2022 [facility] [place] of Occupat ional Health - Occupational Stress [...] Visit [facility] [address] [facility] 110 [place] [address] Shawn Barber MD [address] [facility] 110 [place], [place] [address] 10/26/2024 2:50 PM EDT Office Visit [facility] [address] [facility] 120 [place] [address] Colt Mendieta, DPM 3006 [facility] 5 [place] [address] documented as of this encounter Visit Diagnoses Not on filedocumented in this encounter Care Teams Compressor Operator Relationship Specialty Start Date End Date Shawn Barber MD [address] [facility] 110 [place] [address] PCP - ACO Reach 09/24/22 Shawn Barber MD [address] [facility] 110 [place] [address] PCP - General Internal Medicine 10/22/22WednesdayRandee LPN [address] [facility] 110 [place] [address] Licensed Practical Nurse Family Medicine 12/29/22 06/09/24 Becca Campos LSW Fuel Distribution System Operator Family Medicine 12/29/22 08/24/24 Hilary Frank, RN Licensed Practical Nurse Family Medicine 06/09/24 07/21/24 Kaylen Moore LPN 07/21/24 documented as of this encounter
--- OUTSIDE RECORDS SUMMARY | 2024-10-12 14:23 | XMS_ITS | Encounter Summary ---
Author Organization [facility] Address [address] [facility] [place] [address] Care Team Providers Care Portable Power Tool Repairer Name Role Phone Shawn Barber MD Unavailable [phone] Shawn Barber MD Primary Care Provider [phone] Wednesday, Randee SEGALN Unavailable [phone] Becca Campos PISTON MAKER Unavailable [phone] Hilary Frank RN Unavailable [phone] Kaylen Moore DRAFTER (CAD) ELECTRONIC Unavailable Unavailable Encounter Details Date Type Department Care Team (Late st Contact Info) Description 03/29/2023 Abstract [facility] [address] [facility] 110 [place] [id number] Shawn Barber MD 112 [facility] 110 [place] [address] Social History [...] any clubs o r organizations such as zoroastrian groups, unions, fraternal or athletic groups, or [...] Health Questionnaire-2 Score 1 11/25/2022 [facility] [place] of Occupat ional Health - Occupational Stress [...] [facility] [address] [facility] 110 [place] [address] Shawn Barber MD [address] [facility] 110 [place], [place] [address] 10/26/2024 2:50 PM EDT Office Visit [facility] [address] [facility] 120 [place] [address] Colt Mendieta, DPM 3006 [facility] 5 [place] [address] documented as of this encounter Visit Diagnoses Not on filedocumented in this encounter Care Teams Portable Power Tool Repairer Relationship Specialty Start Date End Date Shawn Barber MD [address] [facility] 110 [place] [address] PCP - ACO Reach 09/24/22 Shawn Barber MD [address] [facility] 110 [place] [address] PCP - General Internal Medicine 10/22/22WednesdayRandee LPN [address] [facility] 110 [place] [address] Licensed Practical Nurse Family Medicine 12/29/22 06/09/24 Becca Campos LSW Automotive Parts Person Family Medicine 12/29/22 08/24/24 Hilary Frank, RN Licensed Practical Nurse Family Medicine 06/09/24 07/21/24 Kaylen Moore LPN 07/21/24 documented as of this encounter
--- OUTSIDE RECORDS SUMMARY | 2024-10-12 14:23 | XMS_ITS | Encounter Summary ---
Author Organization [facility] Address [address] [facility] [place] [address] Care Team Providers Care Consumer Affairs Specialist Name Role Phone Shawn Babrer MD Unavailable [phone] Shawn Barber MD Primary Care Provider Becca Campos LIP READING TEACHER Unavailable [phone] Hilary Frank RN Unavailable [phone] Kaylen Moore LPN Unavailable Unavailable Encounter Details Date Type Department Care Team (Late st Contact Info) Description 07/10/2024 Abstract [facility] 112 [facility] 110 [place] [address] Shawn Barber MD 112 [facility] 110 [place], [place] [address] Social History Tobacco Use Types Packs/Day Years [...] often do you attend chur ch or pentecostal services? Never 12/06/2023 Do you belong to any clubs o r organizations such as mandaeism groups, unions, fraternal or athletic groups, or [...] Questionnaire-2 Score 1 11/25/2022 [facility] [place] of Occupat ional Health - Occupational Stress [...] place to sleep or slept in a fpc (including now)? No 01/29/2023 Housing Stability Vital [...] were you homeless or living in a fpc (including now)? No 12/06/2023 Comments Unknown Sex and Gender Information Value Date Recorded Sex Assigned at Not on file Legal Sex Female 6:46 PM EDT Gender Identity Not on file Sexual Orientation Not on file documented as of this encounter Plan of Treatment Upcoming Encounters Date Type Department Care Team (Late st Contact Info) Description 10/23/2024 2:00 PM EDT Office Visit [facility] [address] [place] 110 [place] [address] Shawn Barber MD [address] [facility] 110 [place] [address] 10/26/2024 2:50 PM EDT Office Visit [facility] [address] [place] [address] [place] [address] Colt Mendieta, DPChris 3006 [facility] 5 [place] [address] documented as of this encounter Visit Diagnoses Not on filedocumented in this encounter Care Teams Consumer Affairs Specialist Relationship Specialty Start Date End Date Shawn Barber MD [address] [facility] 110 [place] [address] PCP - ACO Reach 09/24/22 Shawn Barber MD [address] [facility] 110 [place] [address] PCP - General Internal Medicine 10/22/22 Becca Campos LSW Ramp Lead Family Medicine 12/29/22 08/24/24 Hilary Frank, RN Licensed Practical Nurse Family Medicine 06/09/24 07/21/24 Kaylen Moore LPN 07/21/24 documented as of this encounter
--- OUTSIDE RECORDS SUMMARY | 2024-10-12 14:23 | XMS_ITS | Encounter Summary ---
Author Organization [facility] Address [address] [facility] [place] [address] Care Team Providers Care Dope House Operator Helper Name Role Phone Shawn Barber MD Unavailable [phone] Shawn Barber MD Primary Care Provider [phone] Wednesday, Randee SEGALN Unavailable [phone] Becca Campos CHILDCARE PROVIDER Unavailable [phone] Hilary Frank RN Unavailable [phone] Kaylen Moore SHOW WORKER Unavailable Unavailable Encounter Details Date Type Department Care Team (Late st Contact Info) Description 03/29/2023 Abstract [facility] [address] [facility] 110 [place] [address] Shawn Barber MD 112 [facility] 110 [place] [address] Social History Tobacco Use Types [...] Recorded Patient Health Questionnaire-2 Score 1 11/25/2022 [facility] [place] of Occupat ional Health - Occupational Stress [...] [address] [facility] 110 [place] [address] Shawn Barber MD [address] [facility] 110 [place], [place] [address] 10/26/2024 2:50 PM EDT Office Visit [facility] [address] [facility] [address] [place] [address] Colt Mendieta, DPM [address] [facility] 5 [place] [address] documented as of this encounter Visit Diagnoses Not on filedocumented in this encounter Care Teams Dope House Operator Helper Relationship Specialty Start Date End Date Shawn Barber MD [address] [facility] [address] [place] [address] PCP - ACO Reach 09/24/22 Shawn Barber MD [address] [facility] 110 [place] [address] PCP - General Internal Medicine 10/22/22WednesdayRandee LPN [address] [facility] 110 [place] [address] Licensed Practical Nurse Family Medicine 12/29/22 06/09/24 Becca Campos LSW Tow Truck Dispatcher Family Medicine 12/29/22 08/24/24 Hilary Frank, RN Licensed Practical Nurse Family Medicine 06/09/24 07/21/24 Kaylen Moore LPN 07/21/24 documented as of this encounter
--- OUTSIDE RECORDS SUMMARY | 2024-10-12 14:23 | XMS_ITS | Encounter Summary ---
Author Organization [facility] Address [address] [facility] [place] [address] Care Team Providers Care Fiberglasser Name Role Phone Shawn Barebr MD Unavailable [phone] Shawn Barber MD Primary Care Provider [phone] Wednesday, Randee SEGALN Unavailable [phone] Becca Campos DAM OPERATOR Unavailable [phone] Hilary Frank RN Unavailable [phone] Kaylen Moore GRINDER MACHINE KNIFE SETTER Unavailable Unavailable Encounter Details Date Type Department Care Team (Late st Contact Info) Description 10/09/2022 Orders Only [facility] [address] [facility] 110 [place] [phone] Shawn Barber MD [address] [facility] 110 [place] [address] Social History Tobacco Use Types Packs/Day Years [...] CI FM [address] [facility] 110 [place] [address] Shawn Barber MD [address] [facility] 110 [place], [place] [address] 10/26/2024 2:50 PM EDT Office Visit [facility] [address] [facility] [address] [place] [address] Colt Mendieta, DPChris 3006 [facility] 5 [place] [address] documented as of this encounter Procedures Procedure Name Priority Date/Time Associated Diagnosis Comments XR CHEST 1 VIEW Routine 10/08/2022 8:20 AM EDT documented in this encounter Results * XR chest 1 view (10/08/2022 8:20 AM EDT) Anatomical Region Laterality Modality Chest Radiographic Bhavya ging Shawn Barber MD IMG XR PROCEDURES Final Result documented in this encounter Visit Diagnoses Not on filedocumented in this encounter Care Teams Fiberglasser Relationship Specialty Start Date End Date Shawn Barber MD [address] [facility] [address] [place] [address] PCP - ACO Reach 09/24/22 Shawn Barber MD [address] [facility] [address] [place] [address] PCP - General Internal Medicine 10/22/22Wednesday, NIKHIL Jeff [address] [place] [address] Licensed Practical Nurse Family Medicine 12/29/22 06/09/24 Becca Campos LSW Taximeter Repairer Family Medicine 12/29/22 08/24/24 Hilary Frank, BENITO Licensed Practical Nurse Family Medicine 06/09/24 07/21/24 Kaylen Moore LPN 07/21/24 documented as of this encounter
--- OUTSIDE RECORDS SUMMARY | 2024-10-12 14:23 | XMS_ITS | Encounter Summary ---
Author Organization [facility] Address [address] [facility] [place] [address] Care Team Providers Care Director Life Sciences Name Role Phone Shawn Barber MD Unavailable [phone] Shawn Barber MD Primary Care Provider [phone] Wednesday, Randee SEGALN Unavailable [phone] Becca Campos AXMINSTER RUG SETTER Unavailable [phone] Hilary Frank RN Unavailable [phone] Kaylen Moore HOSIERY LOOPER Unavailable Unavailable Encounter Details Date Type Department Care Team (Late st Contact Info) Description 10/12/2022 Orders Only [facility] [address] [facility] 110 [place] [address] Shawn Barber MD [address] [facility] 110 [place] [address] Social History Tobacco Use Types Packs/Day Years [...] CI FM [address] [facility] 110 [place] [address] Shawn Barber MD [address] [facility] 110 [place], [place] [address] 10/26/2024 2:50 PM EDT Office Visit [facility] [address] [facility] 120 [place] [address] Colt Mendieta, DPChris 3006 [facility] 5 [place] [address] documented as of this encounter Procedures Procedure Name Priority Date/Time Associated Diagnosis Comments ECHOCARDIOGRAM Routine 10/09/2022 11:39 AM EDT documented in this encounter Results * ECHOCARDIOGRAM (10/09/2022 11:39 AM EDT) Anatomical Region Laterality Modality Other us Shawn Barber MD [facility] Final Result documented in this encounter Visit Diagnoses Not on filedocumented in this encounter Care Teams Director Life Sciences Relationship Specialty Start Date End Date Shawn Barber MD [address] [facility] [address] [place] [address] PCP - ACO Reach 09/24/22 Shawn Barber MD [address] [facility] [address] [place] [address] PCP - General Internal Medicine 10/22/22Wednesday, NIKHIL Jeff [address] [place] [address] Licensed Practical Nurse Family Medicine 12/29/22 06/09/24 Becca Campos LSW Shoe Clerk Family Medicine 12/29/22 08/24/24 Hilary Frank, RN Licensed Practical Nurse Family Medicine 06/09/24 07/21/24 Kaylen Moore LPN 07/21/24 documented as of this encounter
--- OUTSIDE RECORDS SUMMARY | 2024-10-12 14:23 | XMS_ITS | Encounter Summary ---
Author Organization [facility] Address [address] [facility] [address] Care Team Providers Care Paper Machine Back Tender Name Role Phone Shawn Barber MD Unavailable [phone] Shawn aBrber MD Primary Care Provider [phone] Wednesday, Randee SEGALN Unavailable [phone] Becca Campos DAIRY NUTRITION CONSULTANT Unavailable [phone] Hilary Frank RN Unavailable [phone] Kaylen Moore RAMPMAN Unavailable Unavailable Encounter Details Date Type Department Care Team (Late st Contact Info) Description 03/22/2023 Abstract [facility] [address] [facility] 110 [place] [address] Shawn Barber MD 112 [facility] 110 [place] [address] Social History Tobacco Use Types [...] Health Questionnaire-2 Score 1 11/25/2022 [facility] [place] of Occupat ional Health - Occupational Stress [...] Visit [facility] [address] [facility] 110 [place] [address] Shawn Barber MD [address] [facility] 110 [place], [place] [address] 10/26/2024 2:50 PM EDT Office Visit [facility] [address] [facility] 120 [place] [address] Colt Mendieta, DPM 3006 [facility] 5 [place] [address] documented as of this encounter Visit Diagnoses Not on filedocumented in this encounter Care Teams Paper Machine Back Tender Relationship Specialty Start Date End Date Shawn Barber MD [address] [facility] [address] [place] [address] PCP - ACO Reach 09/24/22 Sahwn Barber MD [address] [facility] 110 [place] [address] PCP - General Internal Medicine 10/22/22WednesdayRandee LPN [address] [facility] 110 [place] [address] Licensed Practical Nurse Family Medicine 12/29/22 06/09/24 Becca Campos LSW Battery Checker Family Medicine 12/29/22 08/24/24 Hilary Frank, RN Licensed Practical Nurse Family Medicine 06/09/24 07/21/24 Kaylen Moore LPN 07/21/24 documented as of this encounter
--- OUTSIDE RECORDS SUMMARY | 2024-10-12 14:23 | XMS_ITS | Encounter Summary ---
Author Organization [facility] Address [address] [facility] [place] [place] [address] Care Team Providers Care Ash Conveyor Operator Name Role Phone Shawn Barber MD Unavailable [phone] Shawn Barber MD Primary Care Provider [phone] Wednesday, Randee SEGALN Unavailable [phone] Becca Campos SHOE SEWING MACHINE OPERATOR AND TENDER Unavailable [phone] Hilary Frank RN Unavailable [phone] Kaylen Moore PARA PROFESSIONAL Unavailable Unavailable Encounter Details Date Type Department Care Team (Late st Contact Info) Description 04/12/2023 Abstract [facility] [address] [facility] 110 [place] [address] Shawn Barber MD 112 [facility] 110 [place] [address] Social History Tobacco Use Types [...] Questionnaire-2 Score 1 11/25/2022 [facility] [place] of Occupat ional Health - Occupational Stress [...] [address] [facility] 110 [place] [address] Shawn Barber MD [address] [facility] 110 [place], [place] [address] 10/26/2024 2:50 PM EDT Office Visit [facility] [address] [facility] [address] [place] [address] Colt Mendieta, DPM 3006 [facility] 5 [place] [address] documented as of this encounter Visit Diagnoses Not on filedocumented in this encounter Care Teams Ash Conveyor Operator Relationship Specialty Start Date End Date Shawn Barber MD [address] [facility] [address] [place] [address] PCP - ACO Reach 09/24/22 Shawn Barber MD [address] [facility] 110 [place] [address] PCP - General Internal Medicine 10/22/22WednesdayRandee LPN [address] [facility] 110 [place] [address] Licensed Practical Nurse Family Medicine 12/29/22 06/09/24 Becca Campos LSW B2B Sales Professional Family Medicine 12/29/22 08/24/24 Hilary Frank, RN Licensed Practical Nurse Family Medicine 06/09/24 07/21/24 Kaylen Moore LPN 07/21/24 documented as of this encounter
--- OUTSIDE RECORDS SUMMARY | 2024-10-12 14:23 | XMS_ITS | Encounter Summary ---
Author Organization [facility] Address [address] [facility] [place] [address] Care Team Providers Care Database Programmer Analyst Name Role Phone Shawn Barber MD Unavailable [phone] Shawn Barber MD Primary Care Provider [phone] Wednesday, Randee BRANCH ASSOCIATE Unavailable [phone] Becca Campos SALES TRAINING REPRESENTATIVE Unavailable [phone] Hilary Frank RN Unavailable [phone] Kaylen Moore BRANCH ASSOCIATE Unavailable Unavailable Encounter Details Date Type Department Care Team (Late st Contact Info) Description 10/12/2022 Abstract [facility] [address] [facility] 110 [place] [address] Shawn Barber MD [address] [facility] 110 [place] [address] Social History Tobacco Use Types Packs/Day Years [...] CI FM [address] [facility] 110 [place] [address] Shawn Barber MD [address] [facility] 110 [place], [place] [address] 10/26/2024 2:50 PM EDT Office Visit [facility] [address] [facility] [address] [place] [address] Colt Mendieta, DPM 3006 [facility] 5 [place] [address] documented as of this encounter Visit Diagnoses Not on filedocumented in this encounter Care Teams Database Programmer Analyst Relationship Specialty Start Date End Date Shawn Barber MD [address] [facility] [address] [place] [address] PCP - ACO Reach 09/24/22 Shawn Barber MD [address] [facility] [address] [place] [address] PCP - General Internal Medicine 10/22/22WednesdayRandee LPN [address] [place] [address] Licensed Practical Nurse Family Medicine 12/29/22 06/09/24 Becca Campos LSW Surfboard Designer Family Medicine 12/29/22 08/24/24 Hilary Frank, RN Licensed Practical Nurse Family Medicine 06/09/24 07/21/24 Kaylen Moore LPN 07/21/24 documented as of this encounter
--- OUTSIDE RECORDS SUMMARY | 2024-10-12 14:23 | XMS_ITS | Encounter Summary ---
Author Organization [facility] Address [address] [facility] [place] [address] Care Team Providers Care Agricultural Education Instructor Name Role Phone Shawn Barber MD Unavailable [phone] Shawn Barber MD Primary Care Provider Becca Campos VP RHEUMATOLOGY Unavailable [phone] Hilary Frank RN Unavailable [phone] Kaylen Moore LPN Unavailable Unavailable Encounter Details Date Type Department Care Team (Late st Contact Info) Description 07/13/2024 Abstract [facility] 112 [facility] 110 [place] [address] Shawn Barber MD 112 [facility] 110 [place], [place] [address] Social History Tobacco Use Types Packs/Day Years [...] attend chur ch or evangelical services? Never 12/06/2023 Do you belong to [...] Recorded Patient Health Questionnaire-2 Score 1 11/25/2022 [facility] [place] of Occupat ional Health - Occupational Stress [...] any time in the past 12 m [facility], were you homeless or living in a snf (including now)? No 12/06/2023 Comments Unknown Sex and Gender Information Value Date Recorded Sex Assigned at Not on file Legal Sex Female 6:46 PM EDT Gender Identity Not on file Sexual Orientation Not on file documented as of this encounter Plan of Treatment Upcoming Encounters Date Type Department Care Team (Late st Contact Info) Description 10/23/2024 2:00 PM EDT Office Visit [facility] [address] [place] [address] [place] [address] Shawn Barber MD [address] [facility] 110 [place] [address] 10/26/2024 2:50 PM EDT Office Visit [facility] [address] [place] [address] [place] [address] Colt Mendieta, DPChris 3006 [facility] 5 [place] [address] documented as of this encounter Visit Diagnoses Not on filedocumented in this encounter Care Teams Agricultural Education Instructor Relationship Specialty Start Date End Date Shawn Barber MD [address] [facility] 110 [place] [address] PCP - ACO Reach 09/24/22 Shawn Barber MD [address] [facility] 110 [place] [address] PCP - General Internal Medicine 10/22/22 Becca Campos LSW Circular Gang Saw Operator Family Medicine 12/29/22 08/24/24 Hilary Frank, RN Licensed Practical Nurse Family Medicine 06/09/24 07/21/24 Kaylen Moore LPN 07/21/24 documented as of this encounter
--- OUTSIDE RECORDS SUMMARY | 2024-10-12 14:23 | XMS_ITS | Encounter Summary ---
Author Organization [facility] Address [address] [facility] [place] [address] Care Team Providers Care Welder Oxyhydrogen Name Role Phone Shawn Barber MD Unavailable Shawn Barber MD Primary Care Provider [phone] Wednesday, Randee SEGALN Unavailable [phone] Becca Campos ARTIFICIAL INSEMINATOR Unavailable [phone] Hilary Frank RN Unavailable [phone] Kaylen Moore HEARING EXAMINER Unavailable Unavailable Encounter Details Date Type Department Care Team (Late st Contact Info) Description 03/22/2023 Orders Only [facility] [address] [place] [address] A, Unknown Practice [address] [place], [place] [id number] Social History Tobacco Use Types Packs/Day Years [...] How often do you attend chur or mormonism services? Never 01/29/2023 Do you belong to any clubs o r organizations such as restorationist groups, unions, fraternal or athletic groups, or [...] Recorded Patient Health Questionnaire-2 Score 1 11/25/2022 [facility] - Occupational Stress [...] place to sleep or slept in a long term (including now)? No 01/29/2023 Housing Stability Vital [...] Visit [facility] [address] [facility] [address] [place] [address] Shawn Barber MD [address] [place] [address] [facility] [address] [place] [address] 10/26/2024 2:50 PM EDT Office Visit [facility] [address] [facility] [address] [place] [address] Colt Mendieta, DPM [address] [facility] [address] [place] [address] documented as of this encounter Procedures Procedure Name Priority Date/Time Associated Diagnosis Comments MRI HEAD/BRAIN WO CONTRAS Routine 03/22/2023 3:10 PM EST XR CHEST 1 VIEW Routine 03/22/2023 10:11 AM EST documented in this encounter Results * MRI HEAD/BRAIN WO CONTRAS (03/22/2023 3:10 PM EST) Anatomical Region Laterality Modality Radiographic Bhavya ging us Unknown Practice A IMG XR PROCEDURES Final Resul t * XR chest 1 view (03/22/2023 10:11 AM EST) Anatomical Region Laterality Modality Chest Radiographic Bhavya ging us Unknown Practice A IMG XR PROCEDURES Final Resul t documented in this encounter Visit Diagnoses Not on filedocumented in this encounter Care Teams Welder Oxyhydrogen Relationship Specialty Start Date End Date Shawn Barber MD [address] [place] [address] [place] [address] PCP - ACO Reach 09/24/22 Shawn Barber MD [address] [place] [address] [place] [address] PCP - General Internal Medicine 10/22/22WednesdayRandee LPN [address] [place] [address] [place] [address] Licensed Practical Nurse Family Medicine 12/29/22 06/09/24 Becca Campos LSW Foreign Diplomat Family Medicine 12/29/22 08/24/24 Hilary Frank, RN Licensed Practical Nurse Family Medicine 06/09/24 07/21/24 Kaylen Moore LPN 07/21/24 documented as of this encounter
--- OUTSIDE RECORDS SUMMARY | 2024-10-12 14:23 | XMS_ITS | Encounter Summary ---
Author Organization [facility] Address [address] [facility] [place] [place] [address] Care Team Providers Care Information Technology Professor Name Role Phone Shawn Barber MD Unavailable [phone] Shawn Barber MD Primary Care Provider Wednesday, Randee SEGALN Unavailable [phone] Becca Campos STRIPPING SHOVEL OPERATOR Unavailable [phone] Hilary Frank RN Unavailable [phone] Kaylen Moore PAGINATOR Unavailable Unavailable Encounter Details Date Type Department Care Team (Late Contact Info) Description 11/13/2022 Abstract [facility] [address] [facility] [address] [place] [id number] Shawn Barber MD [address] [facility] [address] [place] [address] Social History Tobacco Use Types [...] [address] [place] [address] Shawn Barber MD [address] [place] [address] 10/26/2024 2:50 PM EDT Office Visit [facility] [address] [place] [address] Colt Mendieta, DPChris [address] [facility] 5 [place] [address] documented as of this encounter Visit Diagnoses Not on filedocumented in this encounter Care Teams Information Technology Professor Relationship Specialty Start Date End Date Shawn Barber MD [address] [place] [address] PCP - ACO Reach 09/24/22 Shawn Barber MD [address] [place] [address] PCP - General Internal Medicine 10/22/22WednesdayRandee LPN [address] [place] [address] Licensed Practical Nurse Family Medicine 12/29/22 06/09/24 Becca Campos LSW Supervisor Ditching Family Medicine 12/29/22 08/24/24 Hilary Frank, RN Licensed Practical Nurse Family Medicine 06/09/24 07/21/24 Kaylen Moore LPN 07/21/24 documented as of this encounter
--- OUTSIDE RECORDS SUMMARY | 2024-10-12 14:24 | XMS_ITS | Clinical Summary ---
Author Organization [facility] Address [address] [place] [address] Phone Care Team Providers Care Bell Ringer Name Role Phone Shawn Barber MD Primary Care Provider [phone] Shawn Barber MD Unavailable [phone] Allergies No known active allergies Medications dapagliflozin propanediol (Farxiga) 10 mg Take 1 tablet (10 mg) by mouth once daily. Active FLUoxetine (PROzac) 40 mg capsule Take 1 capsule (40 mg) by mouth once daily. Active metoprolol tartrate (Lopressor) 50 mg tablet Take 1 tablet by mouth 2 times a day. Active ondansetron (Zofran) 4 mg tablet Take 1 tablet (4 mg) by mouth every 8 hours if needed for nausea or vomiting. Active oxygen (O2) gas therapy Inhale 1 each continuously . Active brexpiprazole (Rexulti) 1 mg tablet Take 1 tablet (1 mg) by mouth once daily at bedtime. Active levETIRAcetam (Keppra) 500 mg tablet Take 1 tablet (500 mg) by mouth 2 times a day. Active ALPRAZolam XR (Xanax XR) 1 mg 24 hr tablet Take 1 tablet (1 mg) by mouth once daily as needed. Do not crush, chew, or split. Active atorvastatin (Lipitor) 20 mg tablet Take 1 tablet (20 mg) by mouth once daily. Active magnesium oxide (Mag-Ox) 400 mg tablet 1 tablet (400 mg) 2 times a day. Active promethazine (Phenergan) 25 mg tablet Take 1 tablet (25 mg) by mouth every 6 hours if needed for nausea or vomiting. Active tiZANidine (Zanaflex) 4 mg capsule Take 1 capsule (4 mg) by mouth 3 times a day as needed. Active dulaglutide (Trulicity) 0.75 mg/0.5 mL pen injector Inject 0.75 mg under the skin 1 (one) time per week. Active estradiol (Estrace) 0.01 % (0.1 mg/gram) vaginal cream 2 times a week. 3 Active bumetanide (Bumex) 2 mg tablet Take 1 tablet (2 mg) by mouth once daily. 4 Active potassium chloride CR 20 mEq ER tablet Take 1 tablet (20 mEq) by mouth once daily. 4 Active calcium carbonate-vit D3-min 600 mg calcium- 400 unit tablet Take 1 tablet by mouth twice a day. 4 Active pantoprazole (ProtoNix) 40 mg EC tablet Take 1 tablet (40 mg) by mouth 2 times a day. Do not crush, chew, or split. Active vitamins A,C,E-mzkz-bjarrf 2,148 mcg-113 mg-45 mg-17.4mg tablet Take 1 capsule by mouth once daily. Active multivitamin tablet Take 1 tablet by mouth once daily. Active HYDROcodone-aceta minophen ([place]) 5-325 mg tablet Take 1 tablet by mouth every 6 hours if needed for severe pain (7 - 10). Active apixaban (Eliquis) 2.5 mg tabletIndications :Paroxysmal atrial fibrillation (Multi),Anticoagu lated Take 1 tablet (2.5 mg) by mouth 2 times a day. 180 tablet 3 5 07/18/19 26 Active Active Problems Problem Noted Date Diagnosed Date COPD (chronic obstructive pulmonary disease) ( lti) 05/10/2024 Body mass index 28.0-28.9, adult 07/26/2023 Assessment & Plan (07/27/2023 1:29 PM EDT): Her weight is down approximately 30 pounds. She relates this to recent mandibular fracture and difficulty with dentures. Aortic stenosis 03/30/2023 Assessment & Plan (07/27/2023 1:24 PM EDT): October 2022 TTE Aortic Stenosis p46;m26 May 2023 TTE Aortic stenosis p28:m15 JUDITH 1.2 centimeter squared Assessment & Plan (04/03/2023 11:59 AM EST): October 2022 TTE Aortic Stenosis p46;m26 A-fib (Multi) 03/30/2023 Assessment & Plan (07/27/2023 1:25 PM EDT): PAF May 2023 discharge summary documents inpatient afib with RVR - spontaneous conversion RRR in office today No prior antiarrhythmic No MR Assessment & Plan (04/03/2023 12:00 PM EST): Daughter believes this was diagnosed during one of the hospitalizations prior to being under the care of of an NO. Regular rate and rhythm on exam Abnormal echocardiogram 03/30/2023 Assessment & Plan (07/27/2023 1:26 PM EDT): May 2023 TTE LVEF 75% Aortic valve area 1.2 cm RVSP 60 mmHg Assessment & Plan (04/03/2023 12:00 PM EST): October 2022 TTE LVEF 60 to 65% LA moderate/severe Aortic stenosis peak 46, mean 26 RVSP 84 mmHg (denies prior PE, longstanding tobacco abuse, chronic hypoxia and COPD) RV function and size were reportedly normal Pulmonary hypertension (Multi) 03/30/2023 Assessment & Plan (07/27/2023 1:27 PM EDT): October 2022 TTE RVSP 84 mmHg She denies any prior PE, has longstanding tobacco abuse, chronic hypoxia and COPD May 2023 TTE RVSP 60 mmHg RV function size reported to be normal Anticoagulated 03/30/2023 Assessment & Plan (07/27/2023 1:28 PM EDT): CHADS VASc 4 Currently on full dose Eliquis. Recent 30 pound weight loss puts her weight at 60 kg, discharge creatinine 2.0 Will reduce to Eliquis 2.5 mg twice daily She denies bleeding diatheses Had 1 accidental fall, denies recurrent episode. Briefly introduced Watchman device Assessment & Plan (04/03/2023 12:03 PM EST): CHADS VASc 4 chronically anticoagulated full dose Eliquis age 72, weight 160 pounds. Stage 3 chronic kidney disease (Multi) Assessment & Plan (07/27/2023 1:29 PM EDT): They have not followed up recently with Dr. Guerra At one point her creatinine right about 4.2, May 2023 creatinine 2.06 Assessment & Plan (04/03/2023 12:04 PM EST): Report establish follow-up with Dr. Gurera Last creatinine in our system was 4.2 Current smoker 03/30/2023 Assessment & Plan (07/26/2023 2:53 PM EDT): 'can take it or leave it' Did ok while in SNF Currently 5 per day Continued every day tobacco use. Have reviewed the negative cardiovascular impact of nicotine. Continues to decline pharmacological assistance. Assessment & Plan (04/03/2023 12:04 PM EST): Continued every day tobacco use. Have reviewed the negative cardiovascular impact of nicotine. Continues to decline pharmacological assistance. Diabetes mellitus type II, non insulin dependent (Multi) 03/30/2023 Overview (07/27/2023): Maintained on statin No LONI/ARB secondary to CKD Reports most recent A1c 5.6 Assessment & Plan (04/03/2023 12:03 PM EST): Maintained on statin No LONI/ARB due to CKD Hyperlipidemia 03/30/2023 Assessment & Plan (07/27/2023 1:27 PM EDT): Moderate intensity statin Assessment & Plan (04/03/2023 12:02 PM EST): Low intensity statin Essential hypertension 03/30/2023 Assessment & Plan (07/27/2023 1:27 PM EDT): Optimal in office Assessment & Plan (04/03/2023 12:02 PM EST): Optimal in office Resolved Problems Problem Noted Date Diagnosed Date Resolved Date BMI 31.0-31.9,adult 03/30/2023 07/26/19 24 Encounters Date Type Department Care Team Description 07/17/[address] [place] [address] Rama Kaba, WASHING MACHINE LOADER-COMPLIANCE ADMINISTRATOR Paroxysmal atrial fibrillation (Multi); Anticoagulated from Last 3 Months Family History Medical History Relation Name Comments No Known Problems Brother No Known Problems Father No Known Problems Mother No Known Problems Sister Relation Name Status Comments Brother Father Mother Sister Social History Tobacco Use Types Packs/Day Years Used Date Smoking Tobacco: Every Day Cigarettes Smokeless Tobacco: Never Tobacco Cessation:Ready to Q uit: Not Asked; Counseling Given: Not Answered Alcohol Use Standard Drinks/Week Comments Never 0 (1 standard drink = 0.6 oz pur e alcohol) PHQ-2 Answer Date Recorded Patient Health Questionnaire-2 Score 2 12/28/2022 Comments Unknown Sex and Gender Information Value Date Recorded Sex Assigned at Female 03/30/2023 2:20 PM EST Legal Sex Female 10:58 AM EDT Gender Identity Female 03/30/2023 2:20 PM EST Sexual Orientation Straight 03/30/2023 2: 20 PM EST Last Filed Vital Signs Vital Sign Reading Time Taken Comments Blood Pressure 122/68 05/10/2024 12:16 PM EST Pulse 74 05/10/2024 12:16 PM EST Temperature - - Respiratory Rate - - Oxygen Saturation - - Inhaled Oxygen Concentration - - Weight 66 kg (145 lb 9.6 oz) 05/10/2024 12:16 PM EST Height 152.4 cm (5') 05/10/2024 12:16 PM EST Body Mass Index 28.44 05/10/2024 12:16 PM EST Plan of Treatment Upcoming Encounters Date Type Department Care Team (Late st Contact Info) Description 11/06/2024 1:00 PM EDT Office Visit [address] [place] [address] Rama Kaba, WASHING MACHINE LOADER-COMPLIANCE ADMINISTRATOR [address] [facility] [place] [address] Health Maintenance Due Date Last Done Comments CT Colonography 1950 FIT-DNA (Cologuard) 1950 FIT 1950 Lipid Panel 1950 Medicare Annual Wellness Visit (AWV) 1950 Sigmoidoscopy 1950 Diabetes: Retinopathy Screening 1958 Hepatitis C Screening 1966 Hepatitis A Vaccines (1 of 2 - Risk 2-dose series) 12/08/1967 DTaP/Tdap/Td Vaccines (1 - Tdap) 1970 Hepatitis B Vaccines (1 of 3 - Risk 3-dose series) 2008 Zoster Vaccines (2 of 3) 04/02/2016 02/06/2016 Diabetes: Urine Protein Screening 07/04/2020 07/05/2019 Bone Density Scan 10/04/2021 10/05/2019, 10/05/2019 Diabetes: Hemoglobin A1C 08/17/2023 05/18/2023 RSV High Risk: (Elderly (60+) or Population) (1 - 1-dose 75+ series) 12/08/2023 COVID-19 Vaccine ( - 2023- season) 2024 Creatinine Level 05/18/2024 05/18/2023, , 05/16/2023, Additional history exists Potassium Level 05/18/2024 05/18/2023, 05/03, 05/16/2023, Additional history exists Echocardiogram 06/19/2025 06/19/2024, 04/03, 11/18/2022, Additional history exists Colonoscopy 02/17/2032 02/16/2022, 06/2019, 02/02/2020 Colorectal Cancer Screening 02/17/2032 Pneumococcal Vaccine Completed 05/20/2023, 02/03/2016, 04/12/2015, Additional history exists Influenza Vaccine Completed 04/17/2024, , 03/25/2022, Additional history exists Mammogram Discontinued 06/02/2024, 05/05, 04/13/2023, Additional history exists HIB Vaccines Aged Out No longer eligi ble based on patient's age to complete this topic HPV Vaccines Aged Out No longer eligi ble based on patient's age to complete this topic IPV Vaccines Aged Out No longer eligi ble based on patient's age to complete this topic Meningococcal Vaccine Aged Out No marky chery eligible based on patient's age to complete this topic Rotavirus Vaccines Aged Out No longer eligible based on patient's age to complete this topic Procedures Procedure Name Priority Date/Time Associated Diagnosis Comments TRANSTHORACIC ECHO (TTE) COMPLETE Routine 06/19/2024 3:20 PM EST Paroxysmal atrial fibrillation (Multi) Nonrheumatic aortic valve stenosis Current smoker from Last 3 Months or Most Recently Relevant to Health Maintenance Results * TRANSTHORACIC ECHO (TTE) COMPLETE (06/19/2024 3:20 PM EST) AV mn grad 34 mmHg SYNGO AV pk vu 3.75 m/s SYNGO LV Biplane EF 71 % SYNGO LVOT diam 2.12 cm SYNGO MV E/A ratio 1.19 SYNGO Tricuspid annular plane systolic excursion 2.1 cm SYNGO MV avg E/e' ratio 24.27 SYNGO LA vol index A/L 60.8 ml/m2 SYNGO LV EF 68 % SYNGO RV free wall pk S' 11.65 cm/s SYNGO RVSP 53.4 mmHg SYNGO LVIDd 5.05 cm SYNGO Aortic Valve Area by Continuity of Peak Velocity 1.03 cm2 SYNGO AV pk grad 56 mmHg SYNGO Aortic Valve Area by Continuity of VTI 1.21 cm2 SYNGO LV A4C EF 79.4 SYNGO 06/19/2024 2:24 PM EST Narrative SYNGO - 06/19/2024 4:39 PM EST [address], [address], [place] [address] TRANSTHORACIC ECHOCARDIOGRAM REPORT Patient Name: MARTIN MOORE Reading Physician: [id number] Colin Carrillo MD, FACC Study Date: 06/19/2024 Ordering Provider: [id number] JOSE CANELA MRN/PID: [id number] Fellow: Nurse: Date of /Age: 8 1950 / 73 years Water Pollution Specialist: Kiera Mata RDCS, RT(R), RDMS, RVT Gender Assigned at F Additional Staff: : Height: 152.40 cm Admit Date: Weight: 65.77 kg Admission Status: Outpatient BSA / BMI: 1.63 m2 / 28.32 Department Location: [facility] Heart kg/m2 [place] Study Type: TRANSTHORACIC ECHO (TTE) COMPLETE Diagnosis/ICD: Paroxysmal atrial fibrillation-I48.0; Nonrheumatic aortic (valve) stenosis-I35.0 Indication: Paro AFIB CPT Codes: Echo Complete w Full Doppler-[id number] Patient History: Smoker: Current. Diabetes: Yes Pertinent History: CHF, COPD, HTN, Hyperlipidemia and Murmur. Study Detail: The following Echo studies were performed: 2D, M-Mode, Doppler and color flow. PHYSICIAN INTERPRETATION: Left Ventricle: Left ventricular ejection fraction is normal, by visual estimate at 65-70%. There is severe eccentric left ventricular hypertrophy. There are no regional wall motion abnormalities. The left ventricular cavity size is normal. There is mildly increased posterior left ventricular wall thickness. Spectral Doppler shows a Grade II (pseudonormal pattern) of left ventricular diastolic filling with an elevated left atrial pressure. Mild concentric left ventricular hypertrophy. Left Atrium: The left atrial size is mildly dilated. Right Ventricle: The right ventricle is normal in size. There is normal right ventricular global systolic function. Right Atrium: The right atrial size is normal. Aortic Valve: The aortic valve is trileaflet. There is mild to moderate aortic valve cusp calcification. The aortic valve dimensionless index is 0.34. There is no evidence of aortic valve regurgitation. The peak instantaneous gradient of the aortic valve is 56 mmHg. The mean gradient of the aortic valve is 34 mmHg. Peak velocity across the aortic valve measured 375 cm/s corresponding to a peak pressure gradient of 44 mmHg and a mean pressure gradient 28 mmHg. Aortic valve area measured 1.0 cm . Mitral Valve: The mitral valve is mildly thickened. The peak instantaneous gradient of the mitral valve is 12 mmHg. There is mild mitral valve regurgitation. Tricuspid Valve: The tricuspid valve is structurally normal. There is mild tricuspid regurgitation. Estimated RVSP 53 mmHg consistent with moderate pulmonary hypertension. Pulmonic Valve: The pulmonic valve is not well visualized. There is no indication of pulmonic valve regurgitation. Pericardium: No pericardial effusion noted. Aorta: The aortic root is normal. Systemic Veins: The inferior vena cava appears normal in size. In comparison to the previous echocardiogram(s): When compared to study from April 29, 2023, the aortic stenosis has progressed from mild to moderate, moderate pulmonary hypertension has also developed, annual echocardiogram is recommended. CONCLUSIONS: 1. Left ventricular ejection fraction is normal, by visual estimate at 65-70%. 2. Spectral Doppler shows a Grade II (pseudonormal pattern) of left ventricular diastolic filling with an elevated left atrial pressure. 3. There is normal right ventricular global systolic function. 4. Mild mitral valve regurgitation. 5. Estimated RVSP 53 mmHg consistent with moderate pulmonary hypertension. 6. Mild tricuspid regurgitation is visualized. 7. Peak velocity across the aortic valve measured 375 cm/s corresponding to a peak pressure gradient of 44 mmHg and a mean pressure gradient 28 mmHg. Aortic valve area measured 1.0 cm . 8. When compared to study from April 29, 2023, the aortic stenosis has progressed from mild to moderate, moderate pulmonary hypertension has also developed, annual echocardiogram is recommended. QUANTITATIVE DATA SUMMARY: 2D MEASUREMENTS: Normal Ranges: Ao Root s: 2.70 cm LAs: 4.17 cm (2.7-4.0cm) RVIDd: 2.87 cm (0.9-3.6cm) IVSd: 1.25 cm (0.6-1.1cm) LVPWd: 1.01 cm (0.6-1.1cm) LVIDd: 5.05 cm (3.9-5.9cm) LVIDs: 1.93 cm LV Mass Index: 134.5 g/m2 LVEDV Index: 43.79 ml/m2 LV % FS 61.8 % LEFT ATRIUM: Normal Ranges: LA Vol A4C: 92.5 ml (22+/-6mL/m2) LA Vol A2C: 98.4 ml LA Vol BP: 99.0 ml LA Vol Index A4C: 56.8ml/m2 LA Vol Index A2C: 60.4 ml/m2 LA Vol Index BP: 60.8 ml/m2 LA Vol A4C: 83.1 ml LA Vol A2C: 90.8 ml LA Vol Index BSA: 53.4 ml/m2 LV SYSTOLIC FUNCTION: Normal Ranges: EF-A4C View: 79 % (>=55%) EF-A2C View: 61 % EF-Biplane: 71 % EF-Visual: 68 % LV EF Reported: 68 % LV DIASTOLIC FUNCTION: Normal Ranges: MV Peak E: 1.33 m/s (0.7-1.2 m/s) MV Peak A: 1.12 m/s (0.42-0.7 m/s) E/A Ratio: 1.19 (1.0-2.2) MV e' 0.055 m/s (>8.0) MV lateral e' 0.07 m/s MV medial e' 0.04 m/s E/e' Ratio: 24.27 (<8.0) PulmV Sys Vu: 79.04 cm/s PulmV Bello Vu: 63.05 cm/s PulmV S/D Vu: 1.25 PulmV A Revs Vu: 27.09 cm/s PulmV A Revs Dur: 110.37 msec MITRAL VALVE: Normal Ranges: MV Vmax: 1.76 m/s (<=1.3m/s) MV peak P.4 mmHg (<5mmHg) MV mean P.4 mmHg (<48mmHg) MV VTI: 56.57 cm (10-13cm) MV DT: 247 msec (150-240msec) MV PHT: 66 msec (30-60msec) MVA by PHT: 3.33 cm2 (4-6cm2) MITRAL INSUFFICIENCY: Normal Ranges: MR Vmax: 329.11 cm/s AORTIC VALVE: Normal Ranges: AoV Vmax: 3.75 m/s (<=1.7m/s) AoV Peak P.2 mmHg (<20mmHg) AoV Mean P.2 mmHg (1.7-11.5mmHg) LVOT Max Vu: 1.10 m/s (<=1.1m/s) AoV VTI: 92.48 cm (18-25cm) LVOT VTI: 31.79 cm LVOT Diameter: 2.12 cm (1.8-2.4cm) AoV Area, VTI: 1.21 cm2 (2.5-5.5cm2) AoV Area,Vmax: 1.03 cm2 (2.5-4.5cm2) AoV Dimensionless Index: 0.34 RIGHT VENTRICLE: RV Basal 2.99 cm RV Major 5.7 cm TAPSE: 20.8 mm RV s' 0.12 m/s TRICUSPID VALVE/RVSP: Normal Ranges: Peak TR Velocity: 3.48 m/s Est. RA Pressure: 5 mmHg RV Syst Pressure: 53 mmHg (< 30mmHg) IVC Diam: 1.38 cm PULMONIC VALVE: Normal Ranges: PV Accel Time: 99 msec (>120ms) PV Max Vu: 0.9 m/s (0.6-0.9m/s) PV Max P.0 mmHg PULMONARY VEINS: PulmV A Revs Dur: 110.37 msec PulmV A Revs Vu: 27.09 cm/s PulmV Bello Vu: 63.05 cm/s PulmV S/D Vu: 1.25 PulmV Sys Vu: 79.04 cm/s AORTA: Asc Ao Diam 2.91 cm [id number] Colin Carrillo MD, [facility] Electronically signed on 06/19/2024 at 4:39:18 PM Final Procedure Note Colin Carrillo MD - 06/19/[address], [address] [place] [address] TRANSTHORACIC ECHOCARDIOGRAM REPORT Patient Name: MARTIN Cuba Physician: [id number] Carrillo MD,[facility] Study Date: 06/19/2024 Ordering Provider: [id number] CANELA MRN/PID: [id number] Fellow: Nurse: Date of /Age: 8 1950 / 73 years Water Pollution Specialist: Yoly PEPERT(R), ELKIN, RVT Gender Assigned at F Additional Staff: : Height: 152.40 cm Admit Date: Weight: 65.77 kg Admission Status: Outpatient BSA / BMI: 1.63 m2 / 28.32 Department Location: [facility]/m2 [place] Study Type: TRANSTHORACIC ECHO (TTE) COMPLETE Diagnosis/ICD: Paroxysmal atrial fibrillation-I48.0; Nonrheumatic aortic(valve) stenosis-I35.0 Indication: Paro AFIB CPT Codes: Echo Complete w Full Doppler-[id number] Patient History: Smoker: Current. Diabetes: Yes Pertinent History: CHF, COPD, HTN, Hyperlipidemia and Murmur. Study Detail: The following Echo studies were performed: 2D, M-Mode,Doppler and color flow. PHYSICIAN INTERPRETATION: Left Ventricle: Left ventricular ejection fraction is normal, by visualestimate at 65-70%. There is severe eccentric left ventricularhypertrophy. There are no regional wall motion abnormalities. The leftventricular cavity size is normal. There is mildly increased posteriorleft ventricular wall thickness. Spectral Doppler shows a Grade II(pseudonormal pattern) of left ventricular diastolic filling with anelevated left atrial pressure. Mild concentric left ventricularhypertrophy. Left Atrium: The left atrial size is mildly dilated. Right Ventricle: The right ventricle is normal in size. There is normalright ventricular global systolic function. Right Atrium: The right atrial size is normal. Aortic Valve: The aortic valve is trileaflet. There is mild to moderateaortic valve cusp calcification. The aortic valve dimensionless index is0.34. There is no evidence of aortic valve regurgitation. The peakinstantaneous gradient of the aortic valve is 56 mmHg. The mean gradientof the aortic valve is 34 mmHg. Peak velocity across the aortic valvemeasured 375 cm/s corresponding to a peak pressure gradient of 44 mmHg chacho mean pressure gradient 28 mmHg. Aortic valve area measured 1.0 cm . Mitral Valve: The mitral valve is mildly thickened. The peak instantaneousgradient of the mitral valve is 12 mmHg. There is mild mitral valveregurgitation. Tricuspid Valve: The tricuspid valve is structurally normal. There is mildtricuspid regurgitation. Estimated RVSP 53 mmHg consistent with moderatepulmonary hypertension. Pulmonic Valve: The pulmonic valve is not well visualized. There is noindication of pulmonic valve regurgitation. Pericardium: No pericardial effusion noted. Aorta: The aortic root is normal. Systemic Veins: The inferior vena cava appears normal in size. In comparison to the previous echocardiogram(s): When compared to studyfrom April 29, 2023, the aortic stenosis has progressed from mild tomoderate, moderate pulmonary hypertension has also developed, annualechocardiogram is recommended. CONCLUSIONS: 1. Left ventricular ejection fraction is normal, by visual estimate at65-70%. 2. Spectral Doppler shows a Grade II (pseudonormal pattern) of leftventricular diastolic filling with an elevated left atrial pressure. 3. There is normal right ventricular global systolic function. 4. Mild mitral valve regurgitation. 5. Estimated RVSP 53 mmHg consistent with moderate pulmonaryhypertension. 6. Mild tricuspid regurgitation is visualized. 7. Peak velocity across the aortic valve measured 375 cm/s correspondingto a peak pressure gradient of 44 mmHg and a mean pressure gradient 28mmHg. Aortic valve area measured 1.0 cm . 8. When compared to study from April 29, 2023, the aortic stenosis hasprogressed from mild to moderate, moderate pulmonary hypertension has alsodeveloped, annual echocardiogram is recommended. QUANTITATIVE DATA SUMMARY: 2D MEASUREMENTS: Normal Ranges: Ao Root s: 2.70 cm LAs: 4.17 cm (2.7-4.0cm) RVIDd: 2.87 cm (0.9-3.6cm) IVSd: 1.25 cm (0.6-1.1cm) LVPWd: 1.01 cm (0.6-1.1cm) LVIDd: 5.05 cm (3.9-5.9cm) LVIDs: 1.93 cm LV Mass Index: 134.5 g/m2 LVEDV Index: 43.79 ml/m2 LV % FS 61.8 % LEFT ATRIUM: Normal Ranges: LA Vol A4C: 92.5 ml (22+/-6mL/m2) LA Vol A2C: 98.4 ml LA Vol BP: 99.0 ml LA Vol Index A4C: 56.8ml/m2 LA Vol Index A2C: 60.4 ml/m2 LA Vol Index BP: 60.8 ml/m2 LA Vol A4C: 83.1 ml LA Vol A2C: 90.8 ml LA Vol Index BSA: 53.4 ml/m2 LV SYSTOLIC FUNCTION: Normal Ranges: EF-A4C View: 79 % (>=55%) EF-A2C View: 61 % EF-Biplane: 71 % EF-Visual: 68 % LV EF Reported: 68 % LV DIASTOLIC FUNCTION: Normal Ranges: MV Peak E: 1.33 m/s (0.7-1.2 m/s) MV Peak A: 1.12 m/s (0.42-0.7 m/s) E/A Ratio: 1.19 (1.0-2.2) MV e' 0.055 m/s (>8.0) MV lateral e' 0.07 m/s MV medial e' 0.04 m/s E/e' Ratio: 24.27 (<8.0) PulmV Sys Vu: 79.04 cm/s PulmV Bello Vu: 63.05 cm/s PulmV S/D Vu: 1.25 PulmV A Revs Vu: 27.09 cm/s PulmV A Revs Dur: 110.37 msec MITRAL VALVE: Normal Ranges: MV Vmax: 1.76 m/s (<=1.3m/s) MV peak P.4 mmHg (<5mmHg) MV mean P.4 mmHg (<48mmHg) MV VTI: 56.57 cm (10-13cm) MV DT: 247 msec (150-240msec) MV PHT: 66 msec (30-60msec) MVA by PHT: 3.33 cm2 (4-6cm2) MITRAL INSUFFICIENCY: Normal Ranges: MR Vmax: 329.11 cm/s AORTIC VALVE: Normal Ranges: AoV Vmax: 3.75 m/s (<=1.7m/s) AoV Peak P.2 mmHg (<20mmHg) AoV Mean P.2 mmHg (1.7-11.5mmHg) LVOT Max Vu: 1.10 m/s (<=1.1m/s) AoV VTI: 92.48 cm (18-25cm) LVOT VTI: 31.79 cm LVOT Diameter: 2.12 cm (1.8-2.4cm) AoV Area, VTI: 1.21 cm2 (2.5-5.5cm2) AoV Area,Vmax: 1.03 cm2 (2.5-4.5cm2) AoV Dimensionless Index: 0.34 RIGHT VENTRICLE: RV Basal 2.99 cm RV Major 5.7 cm TAPSE: 20.8 mm RV s' 0.12 m/s TRICUSPID VALVE/RVSP: Normal Ranges: Peak TR Velocity: 3.48 m/s Est. RA Pressure: 5 mmHg RV Syst Pressure: 53 mmHg (< 30mmHg) IVC Diam: 1.38 cm PULMONIC VALVE: Normal Ranges: PV Accel Time: 99 msec (>120ms) PV Max Vu: 0.9 m/s (0.6-0.9m/s) PV Max P.0 mmHg PULMONARY VEINS: PulmV A Revs Dur: 110.37 msec PulmV A Revs Vu: 27.09 cm/s PulmV Bello Vu: 63.05 cm/s PulmV S/D Vu: 1.25 PulmV Sys Vu: 79.04 cm/s AORTA: Asc Ao Diam 2.91 cm [id number] Colin Carrillo MD, [facility] Electronically signed on 06/19/2024 at 4:39:18 PM Final Jose Canela DO CV ECHO PROCEDURES Final Re ed SYNGO from Last 3 Months or Most Recently Relevant to Health Maintenance Insurance MEDICARE PART A AND B MEDICAID [facility] MEDICARE PART A AND B MEDICAID [facility] Care Teams Bell Ringer Relationship Specialty Start Date End Date Shawn Barber MD [address] [facility] [address] [place] [address] PCP - General 12/28/22 Shawn Barber MD [address] [address] 12/28/22
--- OUTSIDE RECORDS SUMMARY | 2024-10-12 14:24 | XMS_ITS | Encounter Summary ---
Author Organization [facility] Address [address] [facility] [place] [address] Care Team Providers Care School Psychometrist Name Role Phone Sahwn Barber MD Unavailable [phone] Shawn Barber MD Primary Care Provider [phone] Wednesday, Randee SEGALN Unavailable [phone] Becca Campos TRANSPORTER RADIOLOGY Unavailable [phone] Hilary Frank RN Unavailable [phone] Kaylen Moore SPLICING MACHINE OPERATOR AUTOMATIC Unavailable Unavailable Encounter Details Date Type Department Care Team (Late st Contact Info) Description 05/14/2023 Abstract [facility] [address] [facility] [address] [place] [id number] Shawn Barber MD [address] [facility] [address] [place] [address] Social History Tobacco Use Types [...] attend chur ch or taoism services? Never 01/29/2023 Do you belong to any clubs o r organizations such as sikhism groups, unions, fraternal or athletic groups, or [...] Recorded Patient Health Questionnaire-2 Score 1 11/25/2022 [facility] [place] of Occupat ional Health - Occupational Stress [...] WAY [facility] [address] [place] [address] Shawn Barber MD [address] [facility] [address] [place] [address] 10/26/2024 2:50 PM EDT Office Visit [facility] [address] [place] [phone] Colt Mendieta, DPM [address] [facility] [address] [place] [address] documented as of this encounter Visit Diagnoses Not on filedocumented in this encounter Care Teams School Psychometrist Relationship Specialty Start Date End Date Shawn Barber MD [address] [place] [address] PCP - ACO Reach 09/24/22 Shawn Barber MD [address] [place] [address] PCP - General Internal Medicine 10/22/22Wednesday, NIKHIL Jeff [address] [place] [address] Licensed Practical Nurse Family Medicine 12/29/22 06/09/24 Becca Campos LSW Community Board Member Family Medicine 12/29/22 08/24/24 Hilary Frank, RN Licensed Practical Nurse Family Medicine 06/09/24 07/21/24 Kaylen Moore LPN 07/21/24 documented as of this encounter
--- OUTSIDE RECORDS SUMMARY | 2024-10-12 14:24 | XMS_ITS | Encounter Summary ---
Author Organization [facility] Address [address] [facility] [place] [address] Care Team Providers Care Flying Ii Instructor Name Role Phone Shawn Barber MD Unavailable [phone] Shawn Barber MD Primary Care Provider [phone] Wednesday, Randee SEGALN Unavailable [phone] Becca Campos INDIVIDUAL PENSION CONSULTANT Unavailable [phone] Hilary Frank RN Unavailable [phone] Kaylen Moore GREASE MAKER Unavailable Unavailable Encounter Details Date Type Department Care Team (Late st Contact Info) Description 05/17/2023 Abstract [facility] [address] [facility] [address] [place] [id number] Shawn Barber MD 112 [facility] [address] [place] [address] Social History Tobacco Use Types [...] often do you attend chur ch or latter day services? Never 01/29/2023 Do you belong to any clubs o r organizations such as scientology groups, unions, fraternal or athletic groups, or [...] 1 11/25/2022 [employer] [place] of Occupat ional Health - Occupational Stress [...] Visit [facility] [address] [facility] [address] [place] [address] Shawn Barber MD [address] [facility] [address] [place] [address] 10/26/2024 2:50 PM EDT Office Visit [facility] [address] [place] [phone] Colt Mendieta, DPM [address] [facility] 5 [place] [address] documented as of this encounter Visit Diagnoses Not on filedocumented in this encounter Care Teams Flying Ii Instructor Relationship Specialty Start Date End Date Shawn Barber MD [address] [place] [address] PCP - ACO Reach 09/24/22 Shawn Barber MD [address] [place] [address] PCP - General Internal Medicine 10/22/22Wednesday, NIKHIL Jeff [address] [place] [address] Licensed Practical Nurse Family Medicine 12/29/22 06/09/24 Becca Campos LSW Forest Nursery Supervisor Family Medicine 12/29/22 08/24/24 Hilary Frank, RN Licensed Practical Nurse Family Medicine 06/09/24 07/21/24 Kaylen Moore LPN 07/21/24 documented as of this encounter
--- OUTSIDE RECORDS SUMMARY | 2024-10-12 14:24 | XMS_ITS | Patient Health Record ---
Author Organization [facility] [place] in [place] Address [address] [place] [address] Care Team Providers Care Php Wordpress Developer Name Role Phone Shawn Barber MD Primary Care Provider Suresh Cramer [phone] Results Component Value Reference Range Notes BNP Reviewed date:10/26/2023 05:12:34 PM Interpretation: Performing Lab: Notes/Report: [facility] , NT Pro B Type Natriuretic Pept 80276.0 <=900.0 pg/mL RESULTS CALLED TO ely arvizu rn Performing Lab: see note ML - [facility] LB CULTURE SPUTUM Reviewed date:10/31/2023 03:38:02 PM Interpretation: Performing Lab: Notes/Report: [facility] , Sputum Culture See Below For Report O:CANALB Isolated Sputum Culture Quantity of Growth Sputum Culture See Below For Report O:CANALB Isolated Sputum Culture Quantity of Growth Sputum Culture LIGHT O:CANALB Isolated Sputum Culture Quantity of Growth Performing Lab: see note ML - [facility] LB PHOSPHORUS Reviewed date:10/26/2023 05:12:34 PM Interpretation: Performing Lab: Notes/Report: [facility] , Phosphorus 5.7 2.6-4.7 mg/dL Performing Lab: see note ML - [facility] LB T4 Reviewed date:10/26/2023 05:12:34 PM Interpretation: Performing Lab: Notes/Report: [facility] , T4 Thyroxine 9.20 4.80-13.90 ug/dL Performing Lab: see note ML - [facility] LB TSH Reviewed date:10/26/2023 05:12:34 PM Interpretation: Performing Lab: Notes/Report: [facility] , Thyroid Stimulating Hormone 0.464 0.358-3.740 uIU/mL Performing Lab: see note [facility] LB UA RANDOM W or MICROSCOPIC Reviewed date:10/26/2023 05:12:34 PM Interpretation: Performing Lab: Notes/Report: [facility] , Color Urine LT. YELLOW YELLOW Clarity Urine CLOUDY CLEAR Specific H[place]away Urine 1.015 1.005-1.025 pH Urine 7.5 5.0-9.0 Protein Urine 30 NEG/TRACE mg/dL Glucose Urine UA NEGATIVE NEGATIVE mg/dL Bilirubin Urine NEGATIVE NEGATIVE Ketones Urine NEGATIVE NEGATIVE mg/dL Blood Urine NEGATIVE NEGATIVE Nitrite Urine NEGATIVE NEGATIVE Urobilinogen Urine 0.2 0.2-1.0 EU/dL Leukocyte Esterase Urine MODERATE NEGATIVE WBC Urine 50-75 NONE SEEN #/HPF RBC Urine 0-2 0-2 #/HPF Bacteria Urine LARGE NONE SEEN #/HPF Mucus Urine NONE SEEN NONE SEEN Squamous Epithelial Cell Urine FEW NONE/RARE #/LPF Crystals Seen? None Seen None Seen #/HPF Cast Seen? NONE SEEN NONE SEEN #/LPF Performing Lab: see note [facility] LB Calcium, Ionized, Serum Reviewed date:10/27/2023 07:53:14 PM Interpretation: Performing Lab: Notes/Report: [facility] , Calcium, Ionized, Serum 3.5 4.5-5.6 mg/dL Performed at: [address] [id number] Ticketer: Percy Barragan PhD, Phone: [phone] Performing Lab: see note [facility] LB Salmonella/Shigella Screen Reviewed date:11/01/2023 09:24:58 PM Interpretation: Performing Lab: Notes/Report: [facility] , Salmonella/Shigella Screen See Below For Report Salmonella/Shigella Screen Salmonella/Shigella Screen No Salmonella or Shigella recovered. Salmonella/Shigella Screen Performing Lab: see note [facility] Campylobacter Culture Reviewed date:11/01/2023 09:24:58 PM Interpretation: Performing Lab: Notes/Report: [facility] , Campylobacter Culture See Below For Report Campylobacter Culture No Campylobacter species isolated. Performing Lab: see note - [facility] LB E coli Shiga Toxin EIA Reviewed date:11/01/2023 09:24:57 PM Interpretation: Performing Lab: Notes/Report: [facility] , E coli Shiga Toxin EIA See Below For Report E coli Shiga Toxin EIA Negative E coli Shiga Toxin EIA [facility] coli Shiga Toxin EIA Negative E coli Shiga Toxin EIA [address], [place] [id number] E coli Shiga Toxin EIA Negative E coli Shiga Toxin EIA Ticketer: Thang Barragan PhD, Phone: [phone] E coli Shiga Toxin EIA Negative Performing Lab: see note - [facility] LB SEE REPORT - Associate Director Of Nursing Id information not found for OBX-specific film reproducer legend C. Difficile PCR Reviewed date:10/27/2023 07:53:14 PM Interpretation: Performing Lab: Notes/Report: [facility] , C. Difficile PCR POSITIVE NEGATIVE RESULTS PEDRO LED TO LU KIMBROUGH RN ON 10/27/23 at 1402 Performing Lab: see note - [facility] LB PROF 14(COMP METB) Reviewed date:10/27/2023 07:53:14 PM Interpretation: Performing Lab: Notes/Report: [facility] , Sodium 138 136-145 mmol/L Potassium 3.9 3.5-5.1 mmol/L Chloride 97 98-107 mmol/L Carbon Dioxide 32.8 21.0-32.0 mmol/L Anion Gap 12.1 Glucose 175 74-106 mg/dL Blood Urea Nitrogen 47.0 7.0-18.0 mg/dL Creatinine 2.25 0.55-1.02 mg/dL Estimated GFR ( Sujey 26 >=60 Estimated GFR (Non- Donita 21 >=60 BUN Creatinine Ratio 20.9 Calcium 5.7 8.5-10.1 mg/dL RESULTS CALLED TO MARINA RODRIGUEZ RN @BY Raven Durán at 0606 Bilirubin Total 0.4 0.2-1.0 mg/dL Aspartate Amino Transferase 16 15-37 U/L Alanine Aminotransferase 17 14-59 U/L Alkaline Phosphatase 70 46-116 U/L Total Protein 6.1 6.4-8.2 g/dL Albumin Level 2.2 3.4-5.0 g/dL Globulin 3.9 Albumin Globulin Ratio 0.6 Performing Lab: see note ML - [facility] LB CBC AUTO DIFF Reviewed date:10/27/2023 07:53:14 PM Interpretation: Performing Lab: Notes/Report: [facility] , White Blood Count 5.3 4.0-11.0 10 3/uL Red Blood Count 2.96 4.20-5.40 10 6/uL Hemoglobin 8.7 12.0-16.0 g/dL Hematocrit 27.8 36.0-48.0 % Mean Corpuscular Volume 93.9 81.0-99.0 fL Mean Corpuscular Hemoglobin 29.4 26.7-34.0 pg Mean Corpuscular HGB Conc 31.3 29.9-35.2 g/dL Red Cell Distribution Width 18.7 11.0-15.0 % Platelet Count 212 150-450 10 3/uL Mean Platelet Volume 9.7 9.5-13.5 fL Neutrophils Percent Auto 81.9 43.0-75.0 % Lymphocytes Percent Auto 12.5 20.5-60.0 % Monocytes Percent Auto 4.8 1.7-12.0 % Eosinophils Percent Auto 0.0 0.9-7.0 % Basophils Percent Auto 0.0 0.2-2.0 % Immature Granulocytes Pct Auto 0.8 0.0-0.5 % Neutrophils Absolute Auto 4.3 1.4-6.5 10 3/uL Lymphocytes Absolute Auto 0.7 1.2-3.8 10 3/uL Monocytes Absolute Auto 0.3 0.3-0.8 10 3/uL Eosinophils Absolute Auto 0.0 0.0-0.7 10 3/uL Basophils Absolute Auto 0.0 0.0-0.1 10 3/uL Immature Granulocytes Abs Auto 0.04 0.00-0.03 10 3/uL Performing Lab: see note ML - [facility] LB BNP Reviewed date:10/27/2023 07:53:14 PM Interpretation: Performing Lab: Notes/Report: [facility] , NT Pro B Type Natriuretic Pept 96346.0 <=900.0 pg/mL RESULTS CALLED TO MARINA RODRIGUEZ RN @BY Raven Durán at 0606 Performing Lab: see note ML - [facility] LB CULTURE URINE Reviewed date:11/01/2023 09:24:58 PM Interpretation: Performing Lab: Notes/Report: [facility] , Urine Culture See Below For Report O:ESCCOL Isolated Urine Culture [place] Count O:ENTFAC Isolated Urine Culture [place] Count Organism: 1.1 Antibiotic Interpretation GISSEL Status Organism: 1.2 Antibiotic Interpretation GISSEL Status Urine Culture See Below For Report O:ESCCOL Isolated Urine Culture [place] Count O:ENTFAC Isolated Urine Culture [place] Count Organism: 1.1 Antibiotic Interpretation GISSEL Status Organism: 1.2 Antibiotic Interpretation GISSEL Status Urine Culture 20,000 - 30,000 O:ESCCOL Isolated Urine Culture [place] Count O:ENTFAC Isolated Urine Culture [place] Count Organism: 1.1 Antibiotic Interpretation GISSEL Status Organism: 1.2 Antibiotic Interpretation GISSEL Status Urine Culture See Below For Report O:ESCCOL Isolated Urine Culture [place] Count O:ENTFAC Isolated Urine Culture [place] Count Organism: 1.1 Antibiotic Interpretation GISSEL Status Organism: 1.2 Antibiotic Interpretation GISSEL Status Urine Culture See Below For Report O:ESCCOL Isolated Urine Culture [place] Count O:ENTFAC Isolated Urine Culture [place] Count Organism: 1.1 Antibiotic Interpretation GISSEL Status Organism: 1.2 Antibiotic Interpretation GISSEL Status Urine Culture 70,000 - 80,000 O:ESCCOL Isolated Urine Culture [place] Count O:ENTFAC Isolated Urine Culture [place] Count Organism: 1.1 Antibiotic Interpretation GISSEL Status Organism: 1.2 Antibiotic Interpretation GISSEL Status Urine Culture See Below For Report O:ESCCOL Isolated Urine Culture [place] Count O:ENTFAC Isolated Urine Culture [place] Count Organism: 1.1 Antibiotic Interpretation GISSEL Status Organism: 1.2 Antibiotic Interpretation GISSEL Status Urine Culture Amikacin S <=2 F O:ESCCOL Isolated Urine Culture [place] Count O:ENTFAC Isolated Urine Culture [place] Count Organism: 1.1 Antibiotic Interpretation GISSEL Status Organism: 1.2 Antibiotic Interpretation GISSEL Status Urine Culture Ampicillin S 4 F O:ESCCOL Isolated Urine Culture [place] Count O:ENTFAC Isolated Urine Culture [place] Count Organism: 1.1 Antibiotic Interpretation GISSEL Status Organism: 1.2 Antibiotic Interpretation GISSEL Status Urine Culture Ampicillin/Sulbactam S <=2 F O:ESCCOL Isolated Urine Culture [place] Count O:ENTFAC Isolated Urine Culture [place] Count Organism: 1.1 Antibiotic Interpretation GISSEL Status Organism: 1.2 Antibiotic Interpretation GISSEL Status Urine Culture Cefazolin S <=4 F O:ESCCOL Isolated Urine Culture [place] Count O:ENTFAC Isolated Urine Culture [place] Count Organism: 1.1 Antibiotic Interpretation GISSEL Status Organism: 1.2 Antibiotic Interpretation GISSEL Status Urine Culture Ceftazidime S <=1 F O:ESCCOL Isolated Urine Culture [place] Count O:ENTFAC Isolated Urine Culture [place] Count Organism: 1.1 Antibiotic Interpretation GISSEL Status Organism: 1.2 Antibiotic Interpretation GISSEL Status Urine Culture Ceftriaxone S <=1 F O:ESCCOL Isolated Urine Culture [place] Count O:ENTFAC Isolated Urine Culture [place] Count Organism: 1.1 Antibiotic Interpretation GISSEL Status Organism: 1.2 Antibiotic Interpretation GISESL Status Urine Culture Ciprofloxacin S <=0. 25 F O:ESCCOL Isolated Urine Culture [place] Count O:ENTFAC Isolated Urine Culture [place] Count Organism: 1.1 Antibiotic Interpretation GISSEL Status Organism: 1.2 Antibiotic Interpretation GISSEL Status Urine Culture Ertapenem S <=0.5 F O:ESCCOL Isolated Urine Culture [place] Count O:ENTFAC Isolated Urine Culture [place] Count Organism: 1.1 Antibiotic Interpretation GISSEL Status Organism: 1.2 Antibiotic Interpretation GISSEL Status Urine Culture Gentamicin S <=1 F O:ESCCOL Isolated Urine Culture [place] Count O:ENTFAC Isolated Urine Culture [place] Count Organism: 1.1 Antibiotic Interpretation GISSEL Status Organism: 1.2 Antibiotic Interpretation GISSEL Status Urine Culture Imipenem S <=0.25 F O:ESCCOL Isolated Urine Culture [place] Count O:ENTFAC Isolated Urine Culture [place] Count Organism: 1.1 Antibiotic Interpretation GISSEL Status Organism: 1.2 Antibiotic Interpretation GISSEL Status Urine Culture Levofloxacin S <=0.1 2 F O:ESCCOL Isolated Urine Culture [place] Count O:ENTFAC Isolated Urine Culture [place] Count Organism: 1.1 Antibiotic Interpretation GISSEL Status Organism: 1.2 Antibiotic Interpretation GISSEL Status Urine Culture Nitrofurantoin S <=1 6 F O:ESCCOL Isolated Urine Culture [place] Count O:ENTFAC Isolated Urine Culture [place] Count Organism: 1.1 Antibiotic Interpretation GISSEL Status Organism: 1.2 Antibiotic Interpretation GISSEL Status Urine Culture Tobramycin S <=1 F O:ESCCOL Isolated Urine Culture [place] Count O:ENTFAC Isolated Urine Culture [place] Count Organism: 1.1 Antibiotic Interpretation GISSEL Status Organism: 1.2 Antibiotic Interpretation GISSEL Status Urine Culture Trimethoprim/Sulfame th oxazole S <=20 F O:ESCCOL Isolated Urine Culture [place] Count O:ENTFAC Isolated Urine Culture [place] Count Organism: 1.1 Antibiotic Interpretation GISSEL Status Organism: 1.2 Antibiotic Interpretation GISSEL Status Urine Culture Piperacillin/Tazobac ta m S <=4 F O:ESCCOL Isolated Urine Culture [place] Count O:ENTFAC Isolated Urine Culture [place] Count Organism: 1.1 Antibiotic Interpretation GISSEL Status Organism: 1.2 Antibiotic Interpretation GISSEL Status Urine Culture See Below For Report O:ESCCOL Isolated Urine Culture [place] Count O:ENTFAC Isolated Urine Culture [place] Count Organism: 1.1 Antibiotic Interpretation GISSEL Status Organism: 1.2 Antibiotic Interpretation GISSEL Status Urine Culture Ampicillin S <=2 F O:ESCCOL Isolated Urine Culture [place] Count O:ENTFAC Isolated Urine Culture [place] Count Organism: 1.1 Antibiotic Interpretation GISSEL Status Organism: 1.2 Antibiotic Interpretation GISSEL Status Urine Culture Beta Lactamase N F O:ESCCOL Isolated Urine Culture [place] Count O:ENTFAC Isolated Urine Culture [place] Count Organism: 1.1 Antibiotic Interpretation GISSEL Status Organism: 1.2 Antibiotic Interpretation GISSEL Status Urine Culture Ciprofloxacin S <=0. 5 F O:ESCCOL Isolated Urine Culture [place] Count O:ENTFAC Isolated Urine Culture [place] Count Organism: 1.1 Antibiotic Interpretation GISSEL Status Organism: 1.2 Antibiotic Interpretation GISSEL Status Urine Culture Gentamycin Synergy Screen R F O:ESCCOL Isolated Urine Culture [place] Count O:ENTFAC Isolated Urine Culture [place] Count Organism: 1.1 Antibiotic Interpretation GISSEL Status Organism: 1.2 Antibiotic Interpretation GISSEL Status Urine Culture Levofloxacin S 0.5 F O:ESCCOL Isolated Urine Culture [place] Count O:ENTFAC Isolated Urine Culture [place] Count Organism: 1.1 Antibiotic Interpretation GISSEL Status Organism: 1.2 Antibiotic Interpretation IGSSEL Status Urine Culture Linezolid S 2 F O:ESCCOL Isolated Urine Culture [place] Count O:ENTFAC Isolated Urine Culture [place] Count Organism: 1.1 Antibiotic Interpretation GISSEL Status Organism: 1.2 Antibiotic Interpretation GISSEL Status Urine Culture Nitrofurantoin S <=1 6 F O:ESCCOL Isolated Urine Culture [place] Count O:ENTFAC Isolated Urine Culture [place] Count Organism: 1.1 Antibiotic Interpretation GISSEL Status Organism: 1.2 Antibiotic Interpretation GISSEL Status Urine Culture Penicillin-G S 2 F O:ESCCOL Isolated Urine Culture [place] Count O:ENTFAC Isolated Urine Culture [place] Count Organism: 1.1 Antibiotic Interpretation GISSEL Status Organism: 1.2 Antibiotic Interpretation GISSEL Status Urine Culture Quinupristin/Dalfopr is tin R F O:ESCCOL Isolated Urine Culture [place] Count O:ENTFAC Isolated Urine Culture [place] Count Organism: 1.1 Antibiotic Interpretation GISSEL Status Organism: 1.2 Antibiotic Interpretation GISSEL Status Urine Culture Streptomycin Synergy Screen S F O:ESCCOL Isolated Urine Culture [place] Count O:ENTFAC Isolated Urine Culture [place] Count Organism: 1.1 Antibiotic Interpretation GISSEL Status Organism: 1.2 Antibiotic Interpretation GISSEL Status Urine Culture Tetracycline R >=16 F O:ESCCOL Isolated Urine Culture [place] Count O:ENTFAC Isolated Urine Culture [place] Count Organism: 1.1 Antibiotic Interpretation GISSEL Status Organism: 1.2 Antibiotic Interpretation GISSEL Status Urine Culture Vancomycin S 1 F O:ESCCOL Isolated Urine Culture [place] Count O:ENTFAC Isolated Urine Culture [place] Count Organism: 1.1 Antibiotic Interpretation GISSEL Status Organism: 1.2 Antibiotic Interpretation GISSEL Status Performing Lab: see note ML - [facility] LB SEE REPORT - Associate Director Of Nursing Id information not found for OBX-specific film reproducer legend CULTURE URINE Reviewed date:10/31/2023 03:38:02 PM Interpretation: Performing Lab: Notes/Report: [facility] , Urine Culture See Below For Report O:ESCCOL Isolated Urine Culture [place] Count O:ENTFAC Isolated Urine Culture [place] Count Organism: 1.1 Antibiotic Interpretation GISSEL Status Urine Culture See Below For Report O:ESCCOL Isolated Urine Culture [place] Count O:ENTFAC Isolated Urine Culture [place] Count Organism: 1.1 Antibiotic Interpretation GISSEL Status Urine Culture 20,000 - 30,000 O:ESCCOL Isolated Urine Culture [place] Count O:ENTFAC Isolated Urine Culture [place] Count Organism: 1.1 Antibiotic Interpretation GISSEL Status Urine Culture See Below For Report O:ESCCOL Isolated Urine Culture [place] Count O:ENTFAC Isolated Urine Culture [place] Count Organism: 1.1 Antibiotic Interpretation GISSEL Status Urine Culture See Below For Report O:ESCCOL Isolated Urine Culture [place] Count O:ENTFAC Isolated Urine Culture [place] Count Organism: 1.1 Antibiotic Interpretation GISSEL Status Urine Culture 70,000 - 80,000 O:ESCCOL Isolated Urine Culture [place] Count O:ENTFAC Isolated Urine Culture [place] Count Organism: 1.1 Antibiotic Interpretation GISSEL Status Urine Culture GISSEL TO FOLLOW. O:ESCCOL Isolated Urine Culture [place] Count O:ENTFAC Isolated Urine Culture [place] Count Organism: 1.1 Antibiotic Interpretation GISSEL Status Urine Culture See Below For Report O:ESCCOL Isolated Urine Culture [place] Count O:ENTFAC Isolated Urine Culture [place] Count Organism: 1.1 Antibiotic Interpretation GISSEL Status Urine Culture Amikacin S <=2 P O:ESCCOL Isolated Urine Culture [place] Count O:ENTFAC Isolated Urine Culture [place] Count Organism: 1.1 Antibiotic Interpretation GISSEL Status Urine Culture Ampicillin S 4 P O:ESCCOL Isolated Urine Culture [place] Count O:ENTFAC Isolated Urine Culture [place] Count Organism: 1.1 Antibiotic Interpretation GISSEL Status Urine Culture Ampicillin/Sulbactam S <=2 P O:ESCCOL Isolated Urine Culture [place] Count O:ENTFAC Isolated Urine Culture [place] Count Organism: 1.1 Antibiotic Interpretation GISSEL Status Urine Culture Cefazolin S <=4 P O:ESCCOL Isolated Urine Culture [place] Count O:ENTFAC Isolated Urine Culture [place] Count Organism: 1.1 Antibiotic Interpretation GISSEL Status Urine Culture Ceftazidime S <=1 P O:ESCCOL Isolated Urine Culture [place] Count O:ENTFAC Isolated Urine Culture [place] Count Organism: 1.1 Antibiotic Interpretation GISSEL Status Urine Culture Ceftriaxone S <=1 P O:ESCCOL Isolated Urine Culture [place] Count O:ENTFAC Isolated Urine Culture [place] Count Organism: 1.1 Antibiotic Interpretation GISSEL Status Urine Culture Ciprofloxacin S <=0. 25 P O:ESCCOL Isolated Urine Culture [place] Count O:ENTFAC Isolated Urine Culture [place] Count Organism: 1.1 Antibiotic Interpretation GISSEL Status Urine Culture Ertapenem S <=0.5 P O:ESCCOL Isolated Urine Culture [place] Count O:ENTFAC Isolated Urine Culture [place] Count Organism: 1.1 Antibiotic Interpretation GISSEL Status Urine Culture Gentamicin S <=1 P O:ESCCOL Isolated Urine Culture [place] Count O:ENTFAC Isolated Urine Culture [place] Count Organism: 1.1 Antibiotic Interpretation GISSEL Status Urine Culture Imipenem S <=0.25 P O:ESCCOL Isolated Urine Culture [place] Count O:ENTFAC Isolated Urine Culture [place] Count Organism: 1.1 Antibiotic Interpretation GISSEL Status Urine Culture Levofloxacin S <=0.1 2 P O:ESCCOL Isolated Urine Culture [place] Count O:ENTFAC Isolated Urine Culture [place] Count Organism: 1.1 Antibiotic Interpretation GISSEL Status Urine Culture Nitrofurantoin S <=1 6 P O:ESCCOL Isolated Urine Culture [place] Count O:ENTFAC Isolated Urine Culture [place] Count Organism: 1.1 Antibiotic Interpretation GISSEL Status Urine Culture Tobramycin S <=1 P O:ESCCOL Isolated Urine Culture [place] Count O:ENTFAC Isolated Urine Culture [place] Count Organism: 1.1 Antibiotic Interpretation GISSEL Status Urine Culture Trimethoprim/Sulfame th oxazole S <=20 P O:ESCCOL Isolated Urine Culture [place] Count O:ENTFAC Isolated Urine Culture [place] Count Organism: 1.1 Antibiotic Interpretation GISSEL Status Urine Culture Piperacillin/Tazobac ta m S <=4 P O:ESCCOL Isolated Urine Culture [place] Count O:ENTFAC Isolated Urine Culture [place] Count Organism: 1.1 Antibiotic Interpretation GISSEL Status Performing Lab: see note ML - [facility] LB SEE REPORT - Associate Director Of Nursing Id information not found for OBX-specific film reproducer legend PROF 14(COMP METB) Reviewed date:10/28/2023 10:04:30 PM Interpretation: Performing Lab: Notes/Report: [facility] , Sodium 136 136-145 mmol/L Potassium 4.1 3.5-5.1 mmol/L Chloride 97 98-107 mmol/L Carbon Dioxide 29.5 21.0-32.0 mmol/L Anion Gap 13.6 Glucose 137 74-106 mg/dL Blood Urea Nitrogen 48.0 7.0-18.0 mg/dL Creatinine 2.15 0.55-1.02 mg/dL Estimated GFR ( Sujey 27 >=60 Estimated GFR (Non- Donita 22 >=60 BUN Creatinine Ratio 22.3 Calcium 5.6 8.5-10.1 mg/dL RESULTS CALLED TO MARINA RODRIGUEZ RN RN @BY Raven Durán at 0636 Bilirubin Total 0.4 0.2-1.0 mg/dL Aspartate Amino Transferase 24 15-37 U/L Alanine Aminotransferase 14 14-59 U/L Alkaline Phosphatase 57 46-116 U/L Total Protein 5.8 6.4-8.2 g/dL Albumin Level 2.2 3.4-5.0 g/dL Globulin 3.6 Albumin Globulin Ratio 0.6 Performing Lab: see note ML - [facility] PHOSPHORUS Reviewed date:10/28/2023 10:04:30 PM Interpretation: Performing Lab: Notes/Report: [facility] , Phosphorus 3.8 2.6-4.7 mg/dL Performing Lab: see note ML - [facility] LB MAGNESIUM Reviewed date:10/28/2023 10:04:30 PM Interpretation: Performing Lab: Notes/Report: [facility] , Magnesium 1.8 1.8-2.4 mg/dL Performing Lab: see note ML - [facility] LB BNP Reviewed date:10/28/2023 10:04:30 PM Interpretation: Performing Lab: Notes/Report: [facility] , NT Pro B Type Natriuretic Pept >34236.0 <=900.0 pg/mL RESULTS CALLED TO MARINA RODRIGUEZ RN @BY Raven Durán at 0636 Performing Lab: see note ML - [facility] LB CBC AUTO DIFF Reviewed date:10/28/2023 10:04:30 PM Interpretation: Performing Lab: Notes/Report: [facility] , White Blood Count 7.3 4.0-11.0 10 3/uL Red Blood Count 2.82 4.20-5.40 10 6/uL Hemoglobin 8.2 12.0-16.0 g/dL Hematocrit 26.5 36.0-48.0 % Mean Corpuscular Volume 94.0 81.0-99.0 fL Mean Corpuscular Hemoglobin 29.1 26.7-34.0 pg Mean Corpuscular HGB Conc 30.9 29.9-35.2 g/dL Red Cell Distribution Width 17.3 11.0-15.0 % Platelet Count 170 150-450 10 3/uL Mean Platelet Volume 9.8 9.5-13.5 fL Neutrophils Percent Auto 86.9 43.0-75.0 % Lymphocytes Percent Auto 7.9 20.5-60.0 % Monocytes Percent Auto 4.8 1.7-12.0 % Eosinophils Percent Auto 0.0 0.9-7.0 % Basophils Percent Auto 0.0 0.2-2.0 % Immature Granulocytes Pct Auto 0.4 0.0-0.5 % Neutrophils Absolute Auto 6.4 1.4-6.5 10 3/uL Lymphocytes Absolute Auto 0.6 1.2-3.8 10 3/uL Monocytes Absolute Auto 0.4 0.3-0.8 10 3/uL Eosinophils Absolute Auto 0.0 0.0-0.7 10 3/uL Basophils Absolute Auto 0.0 0.0-0.1 10 3/uL Immature Granulocytes Abs Auto 0.03 0.00-0.03 10 3/uL Performing Lab: see note ML - [facility] LB Reason For Referral No Information Problems Problem Type SNOMED Code ICD Code Onset Dates Problem Status W/U Status Risk Notes Problem 09791031 Essential (primary) hypertension (I10) Active confirmed Problem 549932218 Anemia in chroni c kidney disease (D63.1) Active confirmed Problem 1381045 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) Active confirmed Problem Malnutrition of mild degree (Haskins: 75% to less than 90% of standard weight) (01306180) Mild protein-calorie malnutrition (E44.1) Active confirmed Problem Hypomagnesemia (973695096) Hypomagnesemia (E83.42) Active confirmed Problem Hypocalcemia (2398277) Hypocalcemia (E83.51) Active confirmed Problem 950377547 Heart failure, unspecified (I50.9) Active confirmed Problem [id number] 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 with hypoxia (J96.21) Active confirmed Problem Weakness (47319117) Weakness (R53.1) Active con firmed Problem Congestive heart failure (50835862) CHF (congestive heart failure) (I50.9) Active confirmed Problem COPD - Chronic obstructive pulmonary disease (64335980) COPD (chronic obstructive pulmonary disease) (J44.9) Active confirmed Problem Atrial fibrillation (disorder) (19573209) Afib (I48.91) Active confirmed Problem Acute exacerbation of chronic obstructive airways disease (044597295) COPD exacerbation (J44.1) Active confirmed Problem Severe protein-calorie malnutrition (Haskins: less than 60% of standard weight) (790237814) Protein-calorie malnutrition, severe (E43) Active confirmed Problem Chronic obstructive lung disease co-occurrent with acute bronchitis (564180638919332) COPD with acute bronchitis (J44.0) Active confirmed Problem Iron deficiency anemia (75460339) Fe deficiency anemia (D50.9) Active confirmed Problem Long-term current use of insulin (149639378) Long-term insulin use (Z79.4) Active confirmed Problem Acute congestive heart failure (39048444) Acute CHF (I50.9) Active confirmed Problem Dependence on supplemental oxygen (663142212645) O2 dependent (Z99.81) Active confirmed Problem 805601371 Longstanding persistent atrial fibrillation (I48.11) Active confirmed Problem 070550274 Other persistent atrial fibrillation (I48.19) Active confirmed Problem Diabetes mellitus (25574625) Diabetes mellitus (E11.9) Active confirmed Problem 804432950 Chronic kidney disease, stage 3 unspecified (N18.30) Active confirmed Problem Acute worsening of stage 3 chronic kidney disease (N18.30) Active confirmed Encounters Encounter Location Date Provider Diagnosis [id number] [place] [address] 11/01/2023 Suresh Uriarte Plan Of Treatment No Information Insurance Providers Payer Name Payer Address Payer Phone Subscriber Number Group Number Insured Name Patient Relationship to Insured Coverage Start Date Coverage End Date [place] [address] [place] [address] [phone] [id number] Kate Moore Self - patient is the insured 1 [place] 2ND INS [address] OFFICE OF [place], [place] [id number] Kate Moore Self - patient is the insured [id number] KAUFMANZ 8 MEDICARE SUPP CLMS DEPT [place] [phone] [id number] PLAN G Kate Moore Self - patient is the insured 4 4
--- OUTSIDE RECORDS SUMMARY | 2024-10-12 14:24 | XMS_ITS | Encounter Summary ---
Author Organization [facility] Address [address] [facility] [place] [address] Care Team Providers Care Tie Knitter Helper Name Role Phone Shawn Barber MD Unavailable [phone] Shawn Barber MD Primary Care Provider [phone] Kaylen Moore LPN Unavailable Unavailable Encounter Details Date Type Department Care Team (Late st Contact Info) Description 10/11/2024 Abstract [facility] [address] [facility] 110 [place] [address] Shawn Barber MD 112 [facility] 110 [place] [address] Social History Tobacco Use Types [...] often do you attend chur ch or jain services? Never 12/06/2023 Do you belong to [...] Recorded Patient Health Questionnaire-2 Score 1 11/25/2022 [facility] - Occupational Stress Questionnaire [...] any time in the past [address] [facility], were you homeless or living [...] EDT Office Visit [facility] [address] [facility] 110 [place] [address] Shawn Barber MD 112 [facility] 110 [place], [place] [address] 10/26/2024 2:50 PM EDT Office Visit [facility] [address] [facility] 120 [place] [address] Colt Mendieta, DPM 3006 [facility] 5 [place] [address] documented as of this encounter Visit Diagnoses Not on filedocumented in this encounter Care Teams Tie Knitter Helper Relationship Specialty Start Date End Date Shawn Barber MD [address] [facility] 110 [place] [address] PCP - ACO Reach 09/24/22 Shawn Barber MD [address] [facility] 110 [place] [address] PCP - General Internal Medicine 10/22/22 Kaylen Moore LPN 07/21/24 documented as of this encounter
--- OUTSIDE RECORDS SUMMARY | 2024-10-12 14:24 | XMS_ITS | Encounter Summary ---
Author Organization [facility] Address [address] [facility] [place] [address] Care Team Providers Care Legal Entity Controller Name Role Phone Shawn Barber MD Unavailable [phone] Shawn Barber MD Primary Care Provider [phone] Wednesday, Randee SEGALN Unavailable [phone] Becca Campos SECURITY ORDERLY Unavailable [phone] Hilary Frank RN Unavailable [phone] Kaylen Moore MONEY ORDER CLERK Unavailable Unavailable Encounter Details Date Type Department Care Team (Late st Contact Info) Description 05/13/2023 Abstract [facility] [address] [facility] 110 [place] [address] Shawn Barber MD 112 [facility] 110 [place] [address] Social History Tobacco Use Types [...] attend chur ch or yarsani services? Never 01/29/2023 Do you belong to any clubs o r organizations such as adventist groups, unions, fraternal or athletic groups, or [...] Recorded Patient Health Questionnaire-2 Score 1 11/25/2022 [facility] [place] of Occupat ional Health - Occupational Stress [...] Visit [facility] [address] [facility] 110 [place] [address] Shawn Barber MD [address] [facility] 110 [place] [address] 10/26/2024 2:50 PM EDT Office Visit [facility] [address] [facility] [address] [place] [address] Colt Mendieta, DPM 3006 [facility] 5 [place] [address] documented as of this encounter Visit Diagnoses Not on filedocumented in this encounter Care Teams Legal Entity Controller Relationship Specialty Start Date End Date Shawn Barber MD [address] [facility] 110 [place] [address] PCP - ACO Reach 09/24/22 Shawn Barber MD [address] [facility] 110 [place] [address] PCP - General Internal Medicine 10/22/22Wednesday, NIKHIL Jeff [address] [place] [address] Licensed Practical Nurse Family Medicine 12/29/22 06/09/[address] Scan Tech Family Medicine 12/29/22 08/24/24 Hilary Frank, RN Licensed Practical Nurse Family Medicine 06/09/24 07/21/24 Kaylen Moore LPN 07/21/24 documented as of this encounter
--- OUTSIDE RECORDS SUMMARY | 2024-10-12 14:24 | XMS_ITS | Encounter Summary ---
Author Organization [facility] Address [address] [facility] [place] [address] Care Team Providers Care Supervisor Plate Pasting Name Role Phone Shawn Barber MD Unavailable [phone] Shawn Barber MD Primary Care Provider [phone] Wednesday, Randee SEGALN Unavailable [phone] Becca Campos PHARMACEUTICAL ENGINEER Unavailable [phone] Hilary Frank RN Unavailable [phone] Kaylen Moore ENERGY ASSISTANT Unavailable Unavailable Encounter Details Date Type Department Care Team (Late st Contact Info) Description 05/14/2023 Abstract [facility] [address] [facility] 110 [place] [address] Shawn Barber MD 112 [facility] 110 [place] [address] Social History Tobacco Use Types [...] Recorded Patient Health Questionnaire-2 Score 1 11/25/2022 [facility] [place] of Occupat ional Health - Occupational Stress [...] [address] [facility] 110 [place] [address] Shawn Barber MD [address] [facility] 110 [place] [address] 10/26/2024 2:50 PM EDT Office Visit [facility] [address] [facility] [address] [place] [address] Colt Mendieta, DPM 3006 [facility] 5 [place] [address] documented as of this encounter Visit Diagnoses Not on filedocumented in this encounter Care Teams Supervisor Plate Pasting Relationship Specialty Start Date End Date Shawn Barber MD [address] [facility] 110 [place] [address] PCP - ACO Reach 09/24/22 Shawn Barber MD [address] [facility] 110 [place] [address] PCP - General Internal Medicine 10/22/22Wednesday, NIKHIL Jeff [address] [place] [address] Licensed Practical Nurse Family Medicine 12/29/22 06/09/24 Becca Campos LSW Core Sticker Family Medicine 12/29/22 08/24/24 Hilary Frank, RN Licensed Practical Nurse Family Medicine 06/09/24 07/21/24 Kaylen Moore LPN 07/21/24 documented as of this encounter
--- OUTSIDE RECORDS SUMMARY | 2024-10-12 14:24 | XMS_ITS | Encounter Summary ---
Author Organization [facility] Address [address] [facility] [place] [address] Care Team Providers Care Machine Leather Trimmer Name Role Phone Shawn Barber MD Unavailable [phone] Shawn Barber MD Primary Care Provider [phone] Wednesday, Randee SEGALN Unavailable [phone] Becca Campos INSTRUMENT MAN Unavailable [phone] Hilary Frank RN Unavailable [phone] Kaylen Moore RISK REDUCTION COUNSELOR Unavailable Unavailable Encounter Details Date Type Department Care Team (Late st Contact Info) Description 05/12/2023 Abstract [facility] [address] [facility] 110 [place] [address] Shawn Barber MD 112 [facility] 110 [place] [address] Social History Tobacco Use [...] often do you attend chur ch or cheondoism services? Never 01/29/2023 Do you belong to [...] Recorded Patient Health Questionnaire-2 Score 1 11/25/2022 [facility] [place] of Occupat ional Health - Occupational Stress [...] [address] [facility] 110 [place] [address] Shawn Barber MD [address] [facility] 110 [place] [address] 10/26/2024 2:50 PM EDT Office Visit [facility] [address] [facility] [address] [place] [address] Colt Mendieta, DPM 3006 [facility] 5 [place] [address] documented as of this encounter Visit Diagnoses Not on filedocumented in this encounter Care Teams Machine Leather Trimmer Relationship Specialty Start Date End Date Shawn Barber MD [address] [facility] 110 [place] [address] PCP - ACO Reach 09/24/22 Shawn Barber MD [address] [facility] 110 [place] [address] PCP - General Internal Medicine 10/22/22Wednesday, NIKHIL Jeff [address] [place] [address] Licensed Practical Nurse Family Medicine 12/29/22 06/09/24 Becca Campos LSW Plastic Roller Family Medicine 12/29/22 08/24/24 Hilary Frank, RN Licensed Practical Nurse Family Medicine 06/09/24 07/21/24 Kaylen Moore LPN 07/21/24 documented as of this encounter
--- OUTSIDE RECORDS SUMMARY | 2024-10-12 14:24 | XMS_ITS | Encounter Summary ---
Author Organization [facility] Address [address] [facility] [place] [place] [address] Care Team Providers Care Business Applications Manager Name Role Phone Shawn Barber MD Unavailable [phone] Shawn Barber MD Primary Care Provider [phone] Wednesday, Randee TEJEDA Unavailable [phone] Becca Campos WEIGHT COUNT OPERATOR Unavailable [phone] Hilary Frank RN Unavailable [phone] Kaylen Moore DENTURE TECHNICIAN Unavailable Unavailable Encounter Details Date Type Department Care Team (Late st Contact Info) Description 05/10/2024 Abstract [facility] [address] [facility] 110 [place] [address] Shawn Barber MD 112 [facility] 110 [place] [address] Social History Tobacco Use Types [...] Recorded Patient Health Questionnaire-2 Score 1 11/25/2022 [facility] [...] any time in the past 12 m [facility], were you homeless or living in [...] [address] [facility] 110 [place] [address] Shawn Barber MD [address] [facility] 110 [place] [address] 10/26/2024 2:50 PM EDT Office Visit [facility] [address] [facility] 120 [place] [address] Colt Mendieta, DPM 3006 [facility] 5 [place] [address] documented as of this encounter Visit Diagnoses Not on filedocumented in this encounter Care Teams Business Applications Manager Relationship Specialty Start Date End Date Shawn Barber MD [address] [facility] 110 [place] [address] PCP - ACO Reach 09/24/22 Shawn Barber MD [address] [facility] 110 [place] [address] PCP - General Internal Medicine 10/22/22WednesdayRandee LPN [address] [place] [address] Licensed Practical Nurse Family Medicine 12/29/22 06/09/24 Becca Campos LSW Bending Shed Worker Family Medicine 12/29/22 08/24/24 Hilary Frank, RN Licensed Practical Nurse Family Medicine 06/09/24 07/21/24 Kaylen Moore LPN 07/21/24 documented as of this encounter
--- OUTSIDE RECORDS SUMMARY | 2024-10-12 14:24 | XMS_ITS | Encounter Summary ---
Author Organization [facility] Address [address] [facility] [place] [address] Care Team Providers Care Head Insulation Board Saw Operator Name Role Phone Shawn Barber MD Unavailable [phone] Shawn Barber MD Primary Care Provider [phone] Wednesday, Randee SEGALN Unavailable [phone] Becca Campos DRY MOP MAKER Unavailable [phone] Hilary Frank RN Unavailable [phone] Kaylen Moore WIRE FRAME LAMP SHADE MAKER Unavailable Unavailable Encounter Details Date Type Department Care Team (Late st Contact Info) Description 05/12/2023 Abstract [facility] [address] [facility] 110 [place] [address] Shawn Barber MD 112 [facility] 110 [place] [address] Social History Tobacco Use Types [...] Recorded Patient Health Questionnaire-2 Score 1 11/25/2022 [facility] [place] of Occupat ional Health - Occupational Stress [...] [address] [facility] 110 [place] [address] Shawn Barber MD [address] [facility] 110 [place] [address] 10/26/2024 2:50 PM EDT Office Visit [facility] [address] [facility] [address] [place] [address] Colt Mendieta, DPM 3006 [facility] 5 [place] [address] documented as of this encounter Visit Diagnoses Not on filedocumented in this encounter Care Teams Head Insulation Board Saw Operator Relationship Specialty Start Date End Date Shawn Barber MD [address] [facility] [address] [place] [address] PCP - ACO Reach 09/24/22 Shawn Barber MD [address] [facility] 110 [place] [address] PCP - General Internal Medicine 10/22/22Wednesday, NIKHIL Jeff [address] [place] [address] Licensed Practical Nurse Family Medicine 12/29/22 06/09/24 Becca Campos LSW Maintainer Operator Family Medicine 12/29/22 08/24/24 Hilary Frank, RN Licensed Practical Nurse Family Medicine 06/09/24 07/21/24 Kaylen Moore LPN 07/21/24 documented as of this encounter
--- OUTSIDE RECORDS SUMMARY | 2024-10-12 14:24 | XMS_ITS | Encounter Summary ---
Author Organization [facility] Address [address] [facility] [place] [address] Care Team Providers Care Wind Operations Supervisor Name Role Phone Shawn Barber MD Unavailable [phone] Shawn Barber MD Primary Care Provider [phone] Wednesday, Randee SEGALN Unavailable [phone] Becca Campos GEOTECHNICAL ENGINEER Unavailable [phone] Hilary Frank RN Unavailable [phone] Kaylen Moore TOY PACKER Unavailable Unavailable Encounter Details Date Type Department Care Team (Late st Contact Info) Description 05/12/2023 Orders Only [facility] [address] [facility] 110 [place] [address] A, Unknown Practice [address] [place], [place] [address] Social History Tobacco Use Types Packs/Day Years [...] Recorded Patient Health Questionnaire-2 Score 1 11/25/2022 [facility] of Occupat ional Health - Occupational Stress [...] [facility] [address] [facility] 110 [place] [address] Shawn Barber MD [address] [facility] 110 [place] [address] 10/26/2024 2:50 PM EDT Office Visit [facility] [address] [facility] 120 [place] [address] Colt Mendieta, DPM 3006 [facility] 5 [place] [address] documented as of this encounter Procedures Procedure Name Priority Date/Time Associated Diagnosis Comments XR CHEST 1 VIEW Routine 05/12/2023 8:28 AM EST ELECTROCARDIOGRAM REPORT Routine 024 9:40 AM EST XR HIP 2 OR 3 VW RIGHT Routine 8:26 AM EST XR FEMUR 2+ VW RIGHT Routine 05/11/2023 8:24 AM EST documented in this encounter Results * XR chest 1 view (05/12/2023 8:28 AM EST) Anatomical Region Laterality Modality Chest Radiographic Bhavya ging us Unknown Practice A IMG XR PROCEDURES Final Resul t * Electrocardiogram Report (05/11/2023 9:40 AM EST) us Unknown Practice A IN CLINIC/BEDSIDE ORDERABLES Final Result * XR hip right 2 or 3 views (05/11/2023 8:26 AM EST) Anatomical Region Laterality Modality Lower Extremities, Hip Right Radiograp hic Imaging us Unknown Practice A IMG XR PROCEDURES Final Resul t * XR femur right 2+ views (05/11/2023 8:24 AM EST) Anatomical Region Laterality Modality Lower Extremities, Femur Right Radiogr aphic Imaging us Unknown Practice A IMG XR PROCEDURES Final Resul t documented in this encounter Visit Diagnoses Not on filedocumented in this encounter Care Teams Wind Operations Supervisor Relationship Specialty Start Date End Date Shawn Barber MD [address] [facility] 110 [place] [address] PCP - ACO Reach 09/24/22 Shawn Barber MD [address] [facility] 110 [place] [address] PCP - General Internal Medicine 10/22/22Wednesday, NIKHIL Jeff 112 [facility] [address] [place] [address] Licensed Practical Nurse Family Medicine 12/29/22 06/09/24 Becca Campos LSW Fitness Trainer Family Medicine 12/29/22 08/24/24 Hilary Frank, RN Licensed Practical Nurse Family Medicine 06/09/24 07/21/24 Kaylen Moore LPN 07/21/24 documented as of this encounter
--- OUTSIDE RECORDS SUMMARY | 2024-10-12 14:24 | XMS_ITS | Encounter Summary ---
Author Organization [facility] Address [address] [facility] [place] [address] Care Team Providers Care Litigation Examiner Name Role Phone Shawn Barber MD Unavailable [phone] Shawn Barber MD Primary Care Provider [phone] Wednesday, Randee SEGALN Unavailable [phone] Becca Campos CUSTODIAN BLOOD BANK Unavailable [phone] Hilary Frank RN Unavailable [phone] Kaylen Moore PAINT LINE PRODUCTION SUPERVISOR Unavailable Unavailable Encounter Details Date Type Department Care Team (Late st Contact Info) Description 06/03/2023 Orders Only [facility] [address] [facility] [address] [place] [address] A, Unknown Practice [address] [place], [place] [address] Social History Tobacco Use Types Packs/Day Years [...] 11/25/2022 [facility] of Occupat ional Health - Occupational Stress [...] Visit [facility] [address] [facility] 110 [place] [address] Shawn Barber MD [address] [facility] 110 [place] [address] 10/26/2024 2:50 PM EDT Office Visit [facility] [address] [facility] 120 [place] [address] Colt Mendieta, DPM 3006 [facility] 5 [place] [address] documented as of this encounter Procedures Procedure Name Priority Date/Time Associated Diagnosis Comments SCANNED LABS Routine 06/03/2023 3:44 PM EST documented in this encounter Results * SCANNED LABS (06/03/2023 3:44 PM EST) us Unknown Practice A LAB CHG PERFORMABLES Final Re sult documented in this encounter Visit Diagnoses Not on filedocumented in this encounter Care Teams Litigation Examiner Relationship Specialty Start Date End Date Shawn Barber MD [address] [facility] [address] [place] [address] PCP - ACO Reach 09/24/22 Shawn Barber MD [address] [facility] [address] [place] [address] PCP - General Internal Medicine 10/22/22Wednesday, NIKHIL Jeff [address] [place] [address] Licensed Practical Nurse Family Medicine 12/29/22 06/09/24 Becca Campos LSW Optical Fabrication Technician Family Medicine 12/29/22 08/24/24 Hilary Frank, BENITO Licensed Practical Nurse Family Medicine 06/09/24 07/21/24 Kaylen Moore LPN 07/21/24 documented as of this encounter
--- OUTSIDE RECORDS SUMMARY | 2024-10-12 14:24 | XMS_ITS | Encounter Summary ---
Author Organization [facility] Address [address] [facility] [place] [address] Care Team Providers Care Grizzly Worker Name Role Phone Shawn Barber MD Unavailable Shawn Barber MD Primary Care Provider [phone] Wednesday, Randee SEGALN Unavailable [phone] Becca Campos BLOWER MECHANIC Unavailable [phone] Hilary Frank RN Unavailable [phone] Kaylen Moore EXTERIOR WORK HELPER Unavailable Unavailable Encounter Details Date Type Department Care Team (Late st Contact Info) Description 05/24/2023 Abstract [facility] [address] [facility] 110 [place] [address] Shawn Barber MD 112 [facility] 110 [place] [address] Social History Tobacco Use Types [...] often do you attend chur ch or jehovah's witness services? Never 01/29/2023 Do you belong to [...] Health Questionnaire-2 Score 1 11/25/2022 [facility] [place] of Occupat ional Health - Occupational Stress [...] Visit [facility] [address] [facility] 110 [place] [address] Shawn Barber MD [address] [facility] 110 [place] [address] 10/26/2024 2:50 PM EDT Office Visit [facility] [address] [facility] [address] [place] [address] Colt Mendieta, DPM 3006 [facility] 5 [place] [address] documented as of this encounter Visit Diagnoses Not on filedocumented in this encounter Care Teams Grizzly Worker Relationship Specialty Start Date End Date Shawn Barber MD [address] [facility] [place] [address] PCP - ACO Reach 09/24/22 Shawn Barber MD [address] [facility] [place] [address] PCP - General Internal Medicine 10/22/22Wednesday, NIKHIL Jeff [address] [place] [address] Licensed Practical Nurse Family Medicine 12/29/22 06/09/24 Becca Campos LSW Catalogue Maker Family Medicine 12/29/22 08/24/24 Hilary Frank, RN Licensed Practical Nurse Family Medicine 06/09/24 07/21/24 Kaylen Moore LPN 07/21/24 documented as of this encounter
--- OUTSIDE RECORDS SUMMARY | 2024-10-12 14:24 | XMS_ITS | Encounter Summary ---
Author Organization [facility] Address [address] [facility] [place] [address] Care Team Providers Care Cell Tuber Machine Name Role Phone Shawn Barber MD Unavailable [phone] Shawn Barber MD Primary Care Provider [phone] Wednesday, Randee SEGALN Unavailable [phone] Becca Campos LOG GRADER Unavailable [phone] Hilary Frank RN Unavailable [phone] Kaylen Moore MOLDER HAND Unavailable Unavailable Encounter Details Date Type Department Care Team (Late st Contact Info) Description 05/13/2023 Abstract [facility] [address] [facility] 110 [place] [address] Shawn Barber MD 112 [facility] 110 [place] [address] Social History Tobacco Use Types [...] any clubs o r organizations such as baptist groups, unions, fraternal or athletic groups, or [...] Recorded Patient Health Questionnaire-2 Score 1 11/25/2022 [facility] [place] of Occupat ional Health - Occupational Stress [...] Visit [facility] [address] [facility] 110 [place] [address] Shawn Barber MD [address] [facility] 110 [place] [address] 10/26/2024 2:50 PM EDT Office Visit [facility] [address] [facility] [place] [address] Colt Mendieta, DPM 3006 [facility] 5 [place] [address] documented as of this encounter Visit Diagnoses Not on filedocumented in this encounter Care Teams Cell Tuber Machine Relationship Specialty Start Date End Date Shawn Barber MD [address] [facility] [place] [address] PCP - ACO Reach 09/24/22 Shawn Barber MD [address] [facility] [address] [place] [address] PCP - General Internal Medicine 10/22/22Wednesday, NIKHIL Jeff [address] [place] [address] Licensed Practical Nurse Family Medicine 12/29/22 06/09/24 Becca Campos LSW Drapery Supervisor Family Medicine 12/29/22 08/24/24 Hilary Frank, RN Licensed Practical Nurse Family Medicine 06/09/24 07/21/24 Kaylen Moore LPN 07/21/24 documented as of this encounter
--- OUTSIDE RECORDS SUMMARY | 2024-10-12 14:24 | XMS_ITS | Encounter Summary ---
Author Organization [facility] Address [address] [facility] [place] [address] Care Team Providers Care Food Service Substitute Name Role Phone Shawn Barber MD Unavailable [phone] Shawn Barber MD Primary Care Provider [phone] Wednesday, Randee SEGALN Unavailable [phone] Becca Campos SUPERVISOR ABATTOIR Unavailable [phone] Hilary Frank RN Unavailable [phone] Kaylen Moore RIGGING WORKER Unavailable Unavailable Encounter Details Date Type Department Care Team (Late st Contact Info) Description 05/12/2023 Abstract [facility] [address] [facility] 110 [place] [id number] Shawn Barber MD 112 [facility] 110 [place] [address] Social History Tobacco [...] often do you attend chur ch or mandaen services? Never 01/29/2023 Do you belong to any clubs o r organizations such as mosque groups, unions, fraternal or athletic groups, or [...] Recorded Patient Health Questionnaire-2 Score 1 11/25/2022 [facility] [place] of Occupat ional Health - Occupational Stress [...] [facility] 110 [place] [address] Shawn Barber MD [address] [facility] 110 [place] [address] 10/26/2024 2:50 PM EDT Office Visit [facility] [address] [place] [address] Colt Mendieta, DPM [address] [facility] 5 [place] [address] documented as of this encounter Visit Diagnoses Not on filedocumented in this encounter Care Teams Food Service Substitute Relationship Specialty Start Date End Date Shawn Barber MD [address] [place] [address] PCP - ACO Reach 09/24/22 Shawn Barber MD [address] [place] [address] PCP - General Internal Medicine 10/22/22Wednesday, NIKHIL Jeff [address] [place] [address] Licensed Practical Nurse Family Medicine 12/29/22 06/09/24 Becca Campos LSW Mix Technician Family Medicine 12/29/22 08/24/24 Hilary Frank, RN Licensed Practical Nurse Family Medicine 06/09/24 07/21/24 Kaylen Moore LPN 07/21/24 documented as of this encounter
--- OUTSIDE RECORDS SUMMARY | 2024-10-12 14:24 | XMS_ITS | Encounter Summary ---
Author Organization [facility] Address [address] [facility] [place] [address] Care Team Providers Care Candy Attendant Name Role Phone Shawn Barber MD Unavailable [phone] Shawn Barber MD Primary Care Provider [phone] Wednesday, Randee TEJEDA Unavailable [phone] Becca Campos RN INTEGRITY Unavailable [phone] Hilary Frank RN Unavailable [phone] Kaylen Moore SOFTWARE DEVELOPMENT INTERN Unavailable Unavailable Encounter Details Date Type Department Care Team (Late st Contact Info) Description 05/13/2023 Orders Only [facility] [address] [facility] 110 [place] [address] A, Unknown Practice [address] [place], [place] [id number] Social History Tobacco Use Types Packs/Day Years [...] often do you attend chur ch or rastafarian services? Never 01/29/2023 Do you belong to [...] 1 11/25/2022 [facility] of Occupat ional Health - [...] [address] [facility] 110 [place] [address] Shawn Barber MD [address] [facility] 110 [place] [address] 10/26/2024 2:50 PM EDT Office Visit [facility] [address] [facility] 120 [place] [address] Colt Mendieta, DPChris [address] [facility] 5 [place] [address] documented as of this encounter Procedures Procedure Name Priority Date/Time Associated Diagnosis Comments XR CHEST 1 VIEW Routine 05/11/2023 11:02 AM EST documented in this encounter Results * XR chest 1 view (05/11/2023 11:02 AM EST) Anatomical Region Laterality Modality Chest Radiographic Bhavya ging us Unknown Practice A IMG XR PROCEDURES Final Resul t documented in this encounter Visit Diagnoses Not on filedocumented in this encounter Care Teams Candy Attendant Relationship Specialty Start Date End Date Shawn Barber MD [address] [facility] 110 [place] [address] PCP - ACO Reach 09/24/22 Shawn Barber MD [address] [facility] 110 [place] [address] PCP - General Internal Medicine 10/22/22WednesdayRandee LPN [address] [facility] 110 [place] [address] Licensed Practical Nurse Family Medicine 12/29/22 06/09/24 Becca Campos LSW Welding Machine Operator/Tender Family Medicine 12/29/22 08/24/24 Hilary Frank, RN Licensed Practical Nurse Family Medicine 06/09/24 07/21/24 Kaylen Moore LPN 07/21/24 documented as of this encounter
--- OUTSIDE RECORDS SUMMARY | 2024-10-12 14:24 | XMS_ITS | Encounter Summary ---
Author Organization [facility] Address [address] [facility] [place] [address] Care Team Providers Care Guidance Adviser Name Role Phone Shawn Barber MD Unavailable [phone] Shawn Barber MD Primary Care Provider [phone] Wednesday, Randee SEGALN Unavailable [phone] Becca Campos DRAFTER CIVIL (CAD) Unavailable [phone] Hilary Frank RN Unavailable [phone] Kaylen Moore TREE CHIPPER Unavailable Unavailable Encounter Details Date Type Department Care Team (Late st Contact Info) Description 05/12/2023 Abstract [facility] [address] [facility] 110 [place] [id number] Shawn Barber MD 112 [facility] 110 [place] [address] Social History Tobacco Use Types [...] often do you attend chur ch or shinto services? Never 01/29/2023 Do you belong to [...] Health Questionnaire-2 Score 1 11/25/2022 [facility] [place] of Occupat ional Health - Occupational Stress [...] [address] [facility] 110 [place] [address] Shawn Barber MD [address] [facility] 110 [place] [address] 10/26/2024 2:50 PM EDT Office Visit [facility] [address] [place] [address] Colt Mendieta, DPM [address] [facility] 5 [place] [address] documented as of this encounter Visit Diagnoses Not on filedocumented in this encounter Care Teams Guidance Adviser Relationship Specialty Start Date End Date Shwan Barber MD [address] [place] [address] PCP - ACO Reach 09/24/22 Shawn Barber MD [address] [place] [place] [address] PCP - General Internal Medicine 10/22/22Wednesday, NIKHIL Jeff [address] [place] [address] Licensed Practical Nurse Family Medicine 12/29/22 06/09/24 Becca Campos LSW Mold Press Operator Family Medicine 12/29/22 08/24/24 Hilary Frank, RN Licensed Practical Nurse Family Medicine 06/09/24 07/21/24 Kaylen Moore LPN 07/21/24 documented as of this encounter
--- OUTSIDE RECORDS SUMMARY | 2024-10-12 14:24 | XMS_ITS | Encounter Summary ---
Author Organization [facility] Address [address] [facility] [place] [address] Care Team Providers Care Center Administrator Name Role Phone Shawn Barber MD Unavailable [phone] Shawn Barber MD Primary Care Provider [phone] Kaylen Moore LPN Unavailable Unavailable Encounter Details Date Type Department Care Team (Late st Contact Info) Description 10/11/2024 Abstract [facility] [address] [facility] 110 [place] [address] Shawn Barber MD 112 [facility] 110 [place] [address] Social History Tobacco Use Types [...] Questionnaire-2 Score 1 11/25/2022 [facility] - Occupational Stress Questionnaire [...] EDT Office Visit [facility] 112 [facility] 110 [place] [address] Shawn Barber MD 112 [facility] 110 [place], [place] [address] 10/26/2024 2:50 PM EDT Office Visit [facility] [address] [facility] 120 [place] [address] Colt Mendieta, DPM 3006 [facility] 5 [place] [address] documented as of this encounter Visit Diagnoses Not on filedocumented in this encounter Care Teams Center Administrator Relationship Specialty Start Date End Date Shawn Barber MD [address] [facility] 110 [place] [address] PCP - ACO Reach 09/24/22 Shawn Barber MD [address] [facility] 110 [place] [address] PCP - General Internal Medicine 10/22/22 Kaylen Moore LPN 07/21/24 documented as of this encounter
--- OUTSIDE RECORDS SUMMARY | 2024-10-12 14:24 | XMS_ITS | Encounter Summary ---
Author Organization [facility] Address [address] [facility] [place] [address] Care Team Providers Care Life Advisor Name Role Phone Shawn Barber MD Unavailable [phone] Shawn Barber MD Primary Care Provider [phone] Wednesday, Randee SEGLAN Unavailable [phone] Becca Campos BACK TENDER FOURDRINIER Unavailable [phone] Hilary Frank RN Unavailable [phone] Kaylen Moore RECORDS SUPERVISOR Unavailable Unavailable Encounter Details Date Type Department Care Team (Late st Contact Info) Description 05/24/2023 Abstract [facility] [address] [facility] 110 [place] [address] Shawn Barber MD [address] [facility] 110 [place] [address] Social History Tobacco Use Types [...] Recorded Patient Health Questionnaire-2 Score 1 11/25/2022 [facility] [place] of Occupat ional Health - Occupational Stress [...] Visit [facility] [address] [facility] 110 [place] [address] Shawn Barber MD [address] [facility] 110 [place] [address] 10/26/2024 2:50 PM EDT Office Visit [facility] [address] [place] [address] Colt Mendieta, DPM 3006 [facility] 5 [place] [address] documented as of this encounter Visit Diagnoses Not on filedocumented in this encounter Care Teams Life Advisor Relationship Specialty Start Date End Date Shawn Barber MD [address] [place] [address] PCP - ACO Reach 09/24/22 Shawn Barber MD [address] [place] [address] PCP - General Internal Medicine 10/22/22Wednesday, NIKHIL Jeff [address] [place] [address] Licensed Practical Nurse Family Medicine 12/29/22 06/09/24 Becca Campos LSW Special Delivery Worker Family Medicine 12/29/22 08/24/24 Hilary Frank, RN Licensed Practical Nurse Family Medicine 06/09/24 07/21/24 Kaylen Moore LPN 07/21/24 documented as of this encounter
--- OUTSIDE RECORDS SUMMARY | 2024-10-12 14:24 | XMS_ITS | Encounter Summary ---
Author Organization [facility] Address [address] [facility] [place] [address] Care Team Providers Care Glycerin Operator Name Role Phone Shawn Barber MD Unavailable Shawn Barber MD Primary Care Provider [phone] Wednesday, Randee SEGALN Unavailable [phone] Becca Campos MARKETING MGR Unavailable [phone] Hilary Frank RN Unavailable [phone] Kaylen Moore CLIENT SERVICES VICE PRESIDENT Unavailable Unavailable Encounter Details Date Type Department Care Team (Late st Contact Info) Description 06/23/2023 Abstract [facility] [address] [facility] 110 [place] [phone] Shawn Barber MD 112 [facility] 110 [place] [address] Social History Tobacco Use Types [...] Recorded Patient Health Questionnaire-2 Score 1 11/25/2022 [facility] [place] of Occupat ional Health - Occupational Stress [...] [facility] [address] [facility] 110 [place] [address] Shawn Barber MD [address] [facility] 110 [place] [address] 10/26/2024 2:50 PM EDT Office Visit [facility] [address] [place] [address] Colt Mendieta, DPM [address] [facility] 5 [place] [address] documented as of this encounter Visit Diagnoses Not on filedocumented in this encounter Care Teams Glycerin Operator Relationship Specialty Start Date End Date Shawn Barber MD [address] [place] [address] PCP - ACO Reach 09/24/22 Shawn Barber MD [address] [place] [address] PCP - General Internal Medicine 10/22/22Wednesday, NIKHIL Jeff [address] [place] [address] Licensed Practical Nurse Family Medicine 12/29/22 06/09/24 Becca Campos LSW Double End Production Grinder Family Medicine 12/29/22 08/24/24 Hilary Frank, RN Licensed Practical Nurse Family Medicine 06/09/24 07/21/24 Kaylen Moore LPN 07/21/24 documented as of this encounter
--- OUTSIDE RECORDS SUMMARY | 2024-10-12 14:25 | XMS_ITS | Encounter Summary ---
Author Organization [facility] Address [address] [facility] [place] [address] Care Team Providers Care Intensive Care Unit Nurse Name Role Phone Shawn Barber MD Unavailable [phone] Shawn Barber MD Primary Care Provider Wednesday, Randee SEGALN Unavailable [phone] Becca Campos ARCHITECTURE INTERNSHIP Unavailable [phone] Hilary Frank RN Unavailable [phone] Kaylen Moore DIPPER CLOCK AND WATCH HANDS Unavailable Unavailable Encounter Details Date Type Department Care Team (Late st Contact Info) Description 08/12/2023 Abstract [facility] [address] [facility] 110 [place] [phone] Shawn Barber MD 112 [facility] 110 [place] [address] Social History Tobacco Use Types [...] any clubs o r organizations such as rastafarian groups, unions, fraternal or athletic groups, or [...] Recorded Patient Health Questionnaire-2 Score 1 11/25/2022 [facility] [place] of Occupat ional Health - Occupational [...] EDT Office Visit [facility] 112 [facility] 110 [place] [address] Shawn Barber MD 112 [facility] 110 [place] [address] 10/26/2024 2:50 PM EDT Office Visit [facility] [address] [place] [address] Colt Mendieta, DPM 3006 [facility] 5 [place] [address] documented as of this encounter Visit Diagnoses Not on filedocumented in this encounter Care Teams Intensive Care Unit Nurse Relationship Specialty Start Date End Date Shawn Barber MD [address] [place] [address] PCP - ACO Reach 09/24/22 Shawn Barber MD [address] [place] [address] PCP - General Internal Medicine 10/22/22Wednesday, NIKHIL Jeff [address] [place] [address] Licensed Practical Nurse Family Medicine 12/29/22 06/09/24 Becca Campos LSW Cake Press Operator Family Medicine 12/29/22 08/24/24 Hilary Frank, RN Licensed Practical Nurse Family Medicine 06/09/24 07/21/24 Kaylen Moore LPN 07/21/24 documented as of this encounter
--- OUTSIDE RECORDS SUMMARY | 2024-10-12 14:25 | XMS_ITS | Clinical Summary ---
Author Organization [facility] Address [address] [place] [address] Care Team Providers Care Claim Taker Name Role Phone Shawn Barber MD Unavailable [phone] Shawn Barber MD Primary Care Provider [phone] Kaylen Moore LPN Unavailable Unavailable Allergies Active Allergy Reactions Criticality Noted Date Comments Bee Venom 09/22/2022 Other reaction(s): Swelling of body region Grapefruit Extract Unknown 09/22/2022 Lanolin 09/22/2022 Naproxen Unknown 10/11/2014 Other 04/05/2023 Other Reaction(s): Not available Pineapple Unknown 09/22/2022 Medications AMINO ACIDS PO Take 15 g by mouth every 8 (eight) hours. Active albuterol (2.5 MG/3ML) 0.083% nebulizer solution Take 2.5 mg by nebulization every 6 (six) hours if needed for wheezing or shortness of breath. Active Alcohol Swabs (B-D SINGLE USE SWABS REGULAR) pads Apply 1 Swab topically 1 (one) time each day. 023 Active Lactobacillus pack Take 1 tablet by mouth every 8 (eight) hours. Active oxygen (O2) gas Inhale 3 L/min continuously. via nasal canula Active diphenhydrAMINE (BENADryl) 25 MG capsule Take 25 mg by mouth as needed at bedtime for itching or allergies. Active denosumab (Prolia) 60 MG/ML solution prefilled syringe Inject 60 mg under the skin every 6 (six) months. Active estradiol (Estrace) 0.1 MG/GM vaginal cream APPLY A PEA SIZE AMOUNT TO URETHRA OR INNER VAGINA 3 TIMES A WEEK FOR 1 MONTH THEN 2 TIMES A WEEK FOR MAINTENANCE 023 Active Continuous Blood Gluc Sensor (FreeStyle Lilliam 2 Sensor) miscIndications:D iabetic peripheral neuropathy associated with type 2 diabetes mellitus (HCC) 1 each every 14 (fourteen) days 6 each 3 024 Active dulaglutide (Trulicity) 0.75 MG/0.5ML solution pen-injector Inject 0.75 mg under the skin 1 (one) time per week Active acetaminophen (Tylenol) 500 MG tablet Take 1,000 mg by mouth 024 Active Myrbetriq 50 MG 24 hr tablet Take 50 mg by mouth Daily 024 Active Eliquis 2.5 MG tablet Take 2.5 mg by mouth in the morning and 2.5 mg before bedtime. 024 Active metoprolol tartrate (Lopressor) 50 MG tabletIndications :Essential hypertension Take 1 tablet by mouth twice daily 180 tablet 3 024 Active SV Iron 325 (65 Fe) MG tablet 024 Active Multiple Vitamins-Minerals (EYE VITAMINS PO) Take 1 tablet by mouth 1 (one) time each day Active potassium chloride CR (K-Tab) 20 MEQ ER tabletIndications :Hypokalemia Take 1 tablet (20 mEq) by mouth Daily 100 tablet 3 024 Active calcium citrate 333 MG tabletIndications :Hypocalcemia Take 2 tablets (666 mg) by mouth in the morning and 2 tablets (666 mg) in the evening and 2 tablets (666 mg) before bedtime. 180 tablet 5 024 Active cholecalciferol (Vitamin D-3) 25 MCG (1000 UT) capsuleIndication s:Hypocalcemia Take 1 capsule (25 mcg) by mouth Daily 90 capsule 3 024 Active famotidine (Pepcid) 20 MG tablet Take 20 mg by mouth Daily Active Calcium Carbonate-Vit D-Min (Calcium 600+D Plus Minerals) 600-400 MG-UNIT tablet Take 1 tablet by mouth in the morning and 1 tablet in the evening. 024 Active calcium acetate (Phoslo) 667 MG capsule TAKE 2 CAPSULES BY MOUTH THREE TIMES DAILY WITH MEALS FOR 30 DAYS Active calcitriol (Rocaltrol) 0.5 MCG capsule Take 0.5 mcg by mouth Daily Active albuterol HFA (Ventolin HFA) 90 mcg/act inhalerIndication s:Panlobular emphysema (HCC) Inhale 2 puffs every 4 (four) hours if needed for wheezing or shortness of breath 18 g 5 024 Active MAGnesium-Oxide 400 (240 Mg) MG tabletIndications :Gastroesophageal reflux disease with esophagitis without hemorrhage Take 1 tablet by mouth twice daily 180 tablet 3 024 Active atorvastatin (Lipitor) 20 MG tabletIndications :Mixed hyperlipidemia Take 1 tablet (20 mg) by mouth Daily 90 tablet 3 024 Active ammonium lactate (Amlactin) 12 % creamIndications: Xerosis cutis APPLY IF NEEDED TWICE DAILY TO DRY SKIN ON FEET 280 g 024 Active pantoprazole (ProtoNix) 40 MG EC tabletIndications :Haddad's esophagus without dysplasia Take 1 tablet (40 mg) by mouth in the morning and 1 tablet (40 mg) before bedtime. 180 tablet 3 024 2024 Active bumetanide (Bumex) 2 MG tabletIndications :Acute combined systolic and diastolic CHF, NYHA class 3 (HCC) TAKE 1 TABLET BY MOUTH IN THE MORNING 90 tablet 3 024 Active hyoscyamine (Levsin) 0.125 MG SL tabletIndications :Muscle spasm,Loose stools Take 1 tablet (0.125 mg) by mouth every 6 (six) hours if needed for cramping 60 tablet 2 025 Active Fluticasone-Salme terol 250-50 MCG/ACT aerosol powderIndications :Panlobular emphysema (HCC) Inhale 1 puff in the morning and 1 puff before bedtime. 60 each 5 025 Active tiZANidine (Zanaflex) 4 MG tabletIndications :Muscle spasm Take 1 tablet (4 mg) by mouth every 8 (eight) hours if needed for muscle spasms 90 tablet 025 Active dapagliflozin (Farxiga) 10 MGIndications:Cee betic mononeuropathy associated with type 2 diabetes mellitus (HCC) TAKE 1 TABLET BY MOUTH IN THE MORNING 30 tablet 11 025 Active ondansetron (Zofran) 4 MG tabletIndications :Gastroesophageal reflux disease without esophagitis TAKE 1 TABLET BY MOUTH EVERY 6 HOURS NEEDED FOR NAUSEA FOR VOMITING 120 tablet 025 Active FLUoxetine (PROzac) 40 MG capsuleIndication s:Depressive disorder Take 1 capsule by mouth in the morning 100 capsule 025 Active levETIRAcetam (Keppra) 250 MG tabletIndications :Seizure disorder (HCC) TAKE 1 TABLET BY MOUTH TWICE DAILY (MORNING AND BEDTIME) 180 tablet 025 Active promethazine (Phenergan) 25 MG tabletIndications :Gastroesophageal reflux disease without esophagitis TAKE 1 TABLET BY MOUTH EVERY 6 HOURS NEEDED FOR NAUSEA FOR VOMITING 120 tablet 025 Active ALPRAZolam (Xanax) 1 MG tabletIndications :Panic attacks Take 1 tablet (1 mg) by mouth 3 (three) times a day as needed for anxiety 90 tablet 025 2024 Active Brexpiprazole (Rexulti) 1 MG tabletIndications :Depressive disorder Take 1 tablet by mouth once daily 30 tablet 11 025 Active FLUoxetine (PROzac) 40 MG capsuleIndication s:Depressive disorder Take 1 capsule (40 mg) by mouth in the morning. 100 capsule 3 024 2024 Discontinued promethazine (Phenergan) 25 MG tabletIndications :Gastroesophageal reflux disease without esophagitis TAKE 1 TABLET BY MOUTH EVERY 6 HOURS NEEDED FOR NAUSEA FOR VOMITING 120 tablet 025 2024 Discontinued levETIRAcetam (Keppra) 250 MG tabletIndications :Seizure disorder (HCC) TAKE 1 TABLET BY MOUTH TWICE DAILY (IN THE MORNING AND BEFORE BEDTIME) 180 tablet 025 2024 Discontinued Rexulti 1 MG tabletIndications :Depressive disorder Take 1 tablet by mouth once daily 40 tablet 025 2024 Discontinued(R eoaura) ALPRAZolam (Xanax) 1 MG tabletIndications :Panic attacks Take 1 tablet (1 mg) by mouth 3 (three) times a day as needed for anxiety 90 tablet 025 2024 Discontinued metroNIDAZOLE (Flagyl) 500 MG tabletIndications :Clostridium difficile colitis Take 1 tablet (500 mg) by mouth in the morning and 1 tablet (500 mg) in the evening and 1 tablet (500 mg) before bedtime. Do all this for 14 days. 42 tablet 025 2024 Brexpiprazole (Rexulti) 1 MG tabletIndications :Depressive disorder Take 1 tablet by mouth Daily 40 tablet 025 2024 Discontinued Active Problems Problem Noted Date Diagnosed Date Anemia of renal disease 11/18/2023 Secondary renal hyperparathyroidism 11/18/2023 CKD (chronic kidney disease) stage 4, GFR 15-29 ml/min 11/03/2023 Grade II diastolic dysfunction 11/03/2023 Hypomagnesemia 11/03/2023 Hypokalemia 11/03/2023 Hypocalcemia 11/03/2023 LVH (left ventricular hypertrophy) 11/03/2023 Clostridium difficile infection 11/03/2023 Other seizures 05/19/2023 Insomnia, unspecified 05/18/2023 Muscle weakness (generalized) 05/18/2023 Other symbolic dysfunctions 05/18/2023 Peripheral vascular disease, unspecified 024 Personal history of other infectious and parasit ic diseases 05/18/2023 Acute posthemorrhagic anemia 05/15/2023 Fracture of mandible, unspec ified, subsequent encounter for fracture with routine healing 05/15/2023 Displaced intertrochanteric fracture of right femur, subsequent encounter for closed fracture with routine healing 05/14/2023 Foot drop, right foot 04/22/2023 Unspecified abnormalities of gait and mobility 1 06/23/2022 Abnormal echocardiogram 03/30/2023 Overview (04/05/2023): Last Assessment & Plan: October 2022 TTE LVEF 60 to 65% LA moderate/severe Aortic stenosis peak 46, mean 26 RVSP 84 mmHg (denies prior PE, longstanding tobacco abuse, chronic hypoxia and COPD) RV function and size were reportedly normal Anticoagulated 03/30/2023 Overview (04/05/2023): Last Assessment & Plan: CHADS VASc 4 chronically anticoagulated full dose Eliquis age 72, weight 160 pounds. Current smoker 03/30/2023 Overview (04/05/2023): Last Assessment & Plan: Continued every day tobacco use. Have reviewed the negative cardiovascular impact of nicotine. Continues to decline pharmacological assistance. Pulmonary hypertension 03/30/2023 senior living (current) use of anticoagulants 2022 Oxygen dependent 11/11/2022 Acute combined systolic and diastolic CHF, NYHA class 3 11/10/2022 Aortic valve disorder 11/10/2022 Bilateral hearing loss 11/10/2022 Bilateral tinnitus 11/10/2022 Diabetic renal disease 11/10/2022 Epilepsy, unspecified, not i ntractable, without status epilepticus 11/10/2022 Hypertensive heart disease w ith congestive heart failure and chronic kidney disease 11/10/2022 Nonalcoholic steatohepatitis (RASMUSSEN) 11/10/2022 Obesity (BMI 30-39.9) 11/10/2022 Protein malnutrition (HHS-HCC) 11/10/2022 Sensorineural hearing loss (SNHL) of both ears 0 11/10/2022 Ventral hernia without obstruction or gangrene 0 11/10/2022 Asymptomatic microscopic hematuria 09/22/2022 Pneumaturia 09/22/2022 Postinfective urethral stric ture, not elsewhere classified, female 09/22/2022 Urinary retention 09/22/2022 Other symptoms and signs involving the genitouri nary system 09/22/2022 Benign hypertensive kidney d isease with chronic kidney disease 04/17/2022 Nonrheumatic aortic valve stenosis 04/17/2022 Paroxysmal atrial fibrillation 04/17/2022 Chronic constipation with overflow 04/13/2022 Constipation 04/13/2022 Type 2 diabetes mellitus with other specified co mplication 04/13/2022 Dysphagia 04/13/2022 Gastroparesis 04/13/2022 Heartburn 04/13/2022 History of colonic polyps 04/13/2022 Loose stools 04/13/2022 Lower abdominal pain 04/13/2022 Morbid obesity 04/13/2022 Muscle spasm 04/13/2022 Panic attacks 04/13/2022 Psoriatic arthritis 04/13/2022 Acquired hallux valgus 01/09/2021 Peripheral venous insufficiency 01/09/2021 External hemorrhoids 12/30/2020 Severe episode of recurrent major depressive disorder, without psychotic features 11/27/2020 Adrenal mass 07/18/2020 Systolic murmur 03/04/2020 Tobacco dependence 03/04/2020 Decreased estrogen level 10/05/2019 Psoriasis 12/26/2018 Diabetic peripheral neuropat hy associated with type 2 diabetes mellitus 12/26/2018 Haddad's esophagus 10/19/2018 Osteoarthritis of left glenohumeral joint 2017 Chronic cough 08/20/2017 Chronic obstructive pulmonary disease 08/20/2017 Depressive disorder 08/20/2017 Essential hypertension 08/20/2017 Gastroesophageal reflux disease 08/20/2017 Generalized anxiety disorder 08/20/2017 Incisional hernia 08/20/2017 Mixed hyperlipidemia 08/20/2017 Obstructive sleep apnea syndrome 08/20/2017 Osteoarthritis 08/20/2017 Polyp of colon 08/20/2017 Chronic diastolic congestive heart failure 08/20 Overview (11/25/2022): Last Assessment & Plan: NYHC- III- currently fluid overloaded and weight gain of 15 pounds in 2 weeks Continue GDMT- farxiga Diuretic therapy-increase bumex to 2mg in am and 1 mg in pm, repeat BMP next week Monitor daily weights, I&O, fluid restriction 1.5-2L/day, renal function and electrolytes- RTC 1month for re-evalaution Chronic pain 06/03/2017 Adhesive capsulitis of left shoulder 05/18/2017 Osteoporosis 05/22/2016 Hyperglycemia due to type 2 diabetes mellitus Primary localized osteoarthrosis of shoulder reg ion 04/11/2015 Resolved Problems Problem Noted Date Diagnosed Date Resolved Date Acute kidney injury superimposed on CKD 11/18/2023 11/18/2023 Stage 3 chronic kidney disease 11/10/2022 11/03/2023 Acute sinusitis 08/20/2017 12/01/2023 Encounters Date Type Department Care Team Description 10/11/2024 Abstract [facility] [address] [place] [address] Shawn Barber MD 10/11/2024 Abstract [facility] [address] [place] [address] Shawn Barber MD 10/05/2024 Refill [facility] [address] [place] [address], [place] Depressive disorder 10/05/2024 Orders Only [facility] [address] [place] [address] Becky, Rachel, [employer] Pneumonia of left lower lobe due to infectious organism 09/26/2024 Refill [facility] [address] [place] [address] Shawn Barber MD Panic attacks 09/25/2024 Refill [facility] [address] [place] [address], [place] Gastroesophageal reflux disease without esophagitis 09/24/2024 Refill [facility] [address] [place] [address] Shawn Barber MD Seizure disorder (HCC) 09/22/2024 Refill [facility] [address] [place] [address], [place] Depressive disorder 09/13/2024 Refill [facility] [address] [place] [address] Becky, Rachel, GU[employer] PLAYER Depressive disorder 09/12/2024 Abstract [facility] [address] [place] [address] Shawn Barber MD 09/12/2024 Abstract [facility] [address] [place] [address] Shawn Barber MD 09/06/2024 Refill [facility] [address] [place] [address], [place] Gastroesophageal reflux disease without esophagitis 09/01/2024 Patient Outreach [facility] [address] [place] [address] Kaylen Moore LPN 08/28/2024 Clinisync Result Encounter [facility] Unsolicited Provider, Generic External Data 08/23/2024 Telephone [facility] [address] [place] [address] BethBecca prakash, [facility] 08/23/2024 Patient Outreach [facility] [address] [place] [address] BethMansoorBecca, [facility] 08/17/2024 Abstract [facility] [address] [facility] [address] [place] [address] Shawn Barber MD 08/15/2024 Refill [facility] [address] [facility] [address] [place] [address] Shawn Barber MD Diabetic mononeuropathy associated with type 2 diabetes mellitus (HCC) 07/25/2024 Patient Outreach [facility] [address] [place] [address] Becca Campos, [facility] 07/18/2024 Abstract [facility] [address] [facility] [address] [place] [address] Shawn Barber MD 07/17/2024 2:00 PM EDT Office Visit [facility] [address] [facility] [address] [place] [address] Shawn Barber MD Type 2 diabetes mellitus with other specified complication, without long-term current use of insulin (HCC) (Primary Dx); Panic attacks ; Psoriatic arthritis (HCC); Muscle spasm; Mixed hyperlipidemia ; Diabetic nephropathy associated with type 2 diabetes mellitus (HCC); Chronic respiratory failure with hypoxia (HCC); Major depressive disorder, recurrent, moderate (HCC); Chronic atrial fibrillation, unspecified (HCC); Exudative age-related macular degeneration, left eye, with inactive choroidal neovascularization (HCC); Diarrhea, unspecified type; Nonrheumatic aortic valve stenosis 07/17/2024 Bamboo flowsheet [facility] [address] [facility] [address] [place] [address] Shawn Barber MD 07/17/2024 Travel 07/15/2024 Refill [facility] [address] [facility] [address] [place] [address] Shawn Barber MD Diabetic mononeuropathy associated with type 2 diabetes mellitus (HCC) 07/13/2024 Abstract [facility] [address] [facility] [address] [place] [address] Shawn Barber MD from Last 3 Months Immunizations Immunization Administration Dates Next Due Influenza, High Dose Seasona l, Preservative Free 03/05/2021,02/09/2019,02/17/2018,01/25 Influenza, High-dose Seasona l, Quadrivalent, Preservative Free 04/17/2024,03/01/2023,02/05/2022 Influenza, Unspecified 01/31/2022,03/22/2020, Influenza, injectable, quadrivalent 02/19/2016 Influenza, seasonal, injectable 02/05/2014 Influenza, seasonal, intrade rmal, preservative free 01/21/2015 PPD Test 05/30/2023,05/22/2023,05/20/2023 Pneumococcal Conjugate PCV 13 04/12/2015 Pneumococcal Conjugate PCV 20 05/20/2023 Pneumococcal Polysaccharide PPSV23 02/03/2016, Zoster, live 02/06/2016 Family History Medical History Relation Name Comments Heart disease Father Hypertension Father Heart disease Mother Hypertension Mother Stroke Mother Relation Name Status Comments Father Mother Social History Tobacco Use Types Packs/Day Years Used Date Smoking Tobacco: Every Day Cigarettes 1 50 Smokeless Tobacco: Never Tobacco Cessation:Ready to Q uit: Not Asked; Counseling Given: Yes Alcohol Use Standard Drinks/Week Comments Not Currently [...] attend chur ch or cheondoism services? Never 12/06/2023 Do you belong to any clubs o r organizations such as bahai groups, unions, fraternal or athletic groups, or [...] Recorded Patient Health Questionnaire-2 Score 1 11/25/2022 [facility] [place] [facility] Occupat ional Health - Occupational Stress [...] in the past 12 m [facility], were you homeless or living in a halfway (including now)? No 12/06/2023 Comments Unknown Sex and Gender Information Value Date Recorded Sex Assigned at Not on file Legal Sex Female 6:46 PM EDT Gender Identity Not on file Sexual Orientation Not on file Last Filed Vital Signs Vital Sign Reading Time Taken Comments Blood Pressure 114/66 07/17/2024 1:43 PM EDT Pulse 73 07/17/2024 1:43 PM EDT Temperature - - Respiratory Rate 16 06/01/2024 4:36 PM EST Oxygen Saturation 94% 07/17/2024 1:43 PM EDT Inhaled Oxygen Concentration - - Weight 64 kg (141 lb) 07/17/2024 1:43 PM EDT Height 160 cm (5' 3 ) 07/17/2024 1:43 PM EDT Body Mass Index 24.98 07/17/2024 1:43 PM EDT Plan of Treatment Upcoming Encounters Date Type Department Care Team (Late st Contact Info) Description 10/23/2024 2:00 PM EDT Office Visit [facility] [address] [facility] [address] [place] [address] Shawn Barber MD 112 [facility] [address] [place] [address] 10/26/2024 2:50 PM EDT Office Visit [facility] [address] [facility] [address] [place] [address] Colt Mendieta, DPChris [address] [facility] [address] [place] [address] Health Maintenance Due Date Last Done Comments CT Colonography 1950 FIT-DNA 1950 FIT 1950 FOBT 1950 Lung Cancer Screening Shared Decision Making 1950 Sigmoidoscopy 1950 Diabetes: Hemoglobin A1C 10/17/2024 025, 01/17/2024, 10/13/2023, Additional history exists Diabetes: Urine Protein Screening 10/31/2024 11/01/2023, 07/05/2019, 12/26/2018, Additional history exists Diabetes: Retinopathy Screening 12/19/2025 12/20/2023, 08/18/2021, 05/22/2020, Additional history exists Colonoscopy 02/17/2032 02/16/2022, 06/2019, 02/02/2020, Additional history exists Colorectal Cancer Screening 02/17/2032 Pneumococcal Vaccine: 65+ Years Completed 05/20/2023, 02/03/2016, 04/12/2015, Additional history exists Influenza Vaccine Completed 04/17/2024, , 02/05/2022, Additional history exists Mammogram Discontinued 06/02/2024, 04/02, 04/13/2023, Additional history exists Procedures Procedure Name Priority Date/Time Associated Diagnosis Comments ALL RENAL FUNCTION PANEL Routine 08/28/2024 11:54 AM EDT CLOSTRIDIUM DIFFICILE TOXIN Routine 07/20/2024 10:17 AM EDT Diarrhea, unspecified type POCT GLYCATED HEMOGLOBIN, TOTAL Routine 07/17/2024 2:46 PM EDT Type 2 diabetes mellitus with other specified complication, without long-term current use of insulin (HCC) BI MAMMOGRAM SCREENING BILATERAL 06/02/2024 3:47 PM EST DIABETIC RETINOPATHY SCREENING - OU - BOTH EYES Routine 12/20/2023 COLONOSCOPY Routine 02/02/2020 12:00 PM EDT MICROALBUMIN / CREATININE URINE RATIO Routine 07/05/2019 from Last 3 Months or Most Recently Relevant to Health Maintenance Results * (ABNORMAL) ALL RENAL FUNCTION PANEL (08/28/2024 11:54 AM EDT) SODIUM 143 136 - 145 mmol/L [facility] POTASSIUM 4.9 3.5 - 5.1 mmol/L [facility] CHLORIDE 104 98 - 107 mmol/L [facility] CARBON DIOXIDE 32.6(H) 21.0 - 32.0 mmol/L [facility] ANION GAP 11.3 [facility] GLUCOSE 137(H) 74 - 106 mg/dL [facility] BLOOD UREA NITROGEN 36.0(H) 7.0 - 18.0 mg/dL [facility] CREATININE 2.74(H) 0.55 - 1.02 mg/dL [facility] EGFR-AF FILIPINO 20(L) >=60 mL/min/1.7 3m 2 TBH TBH EGFR-NON AF FILIPINO 17(L) >=60 mL/min/1.7 3m 2 [facility] BUN CREATININE RATIO 13.1 [facility] CALCIUM 8.5 8.5 - 10.1 mg/dL [facility] PHOSPHORUS 3.9 2.6 - 4.7 mg/dL [facility] ALBUMIN LEVEL 1.9(L) 3.4 - 5.0 g/dL [facility] 08/28/2024 11:5 4 AM EDT 08/28/2024 11:56 AM EDT Narrative [facility] - 08/28/2024 12:54 PM EDT us Generic External Data Provider [facility] F inal Result [facility] TB * (ABNORMAL) Clostridium difficile toxin (07/20/2024 10:17 AM EDT) MICRO NUMBER [id number] [facility] SPECIMEN QUALITY Adequate [facility] SOURCE STOOL [facility] STATUS FINAL [facility] GDH ANTIGEN SEE NOTE [facility] Comment: Detected TOXIN A AND B SEE NOTE [facility] Comment: Detected COMMENT SEE NOTE(A) [facility] Comment: Toxigenic C. difficile detected For additional information, please refer to http://education.BuildDirect/faq/RFO290 (This link is being provided for informational/educational purposes only.) Stool Rectal contents / Unknown 07/20/2024 10:17 AM EDT 07/20/2024 10:18 AM EDT Narrative Resulting Agency Comment Performing Organization Information Site ID: [id number] Name: [facility] Address: [address] [place] [address], [address] [place] [id number] Director: Chon Manzano MD Shawn Barber MD LAB MICROBIOLOGY - GENERAL ORD ERABLES Final Result [facility] * POCT Glycated hemoglobin, total (07/17/2024 2:46 PM EDT) Hemoglobin A1C 5.4 Blood 07/17/2024 2:46 PM EDT Shawn Barber MD POINT OF CARE TEST ENTER/EDIT ORDERABLES Final Result * Bilateral screening mammogram (06/02/2024 3:47 PM EST) Anatomical Region Laterality Modality Breast Bilateral Mammography 06/02/2024 3:47 PM EST Narrative 06/02/2024 3:48 [place] [address] Mammography Report Signed Patient: MARTIN MOORE MR#: [id number] : 1950 Acct:[id number] Age/Sex: 73 / F ADM Date: 06/02/24 Loc: MAMMO Attending Dr: SHAWN BARBER Ordering Physician: SHAWN BARBER Results: Date of Service: 06/02/24 Follow Up: Procedure(s): MM screening mammo BI Accession Number(s): [id number] cc: SHAWN BARBER Patient Name: MARTIN MOORE MR#: [id number] : 1950 Exam Date: 06/02/2024 Ordering Doctor: DR SHAWN BARBER M.D. RADIOLOGY REPORT PROCEDURE: MM SCREENING MAMMO BI COMPARISON: MM SCREENING MAMMO BI, 04/12/2023. INDICATIONS: Screening Calculator Name NCI Breast Cancer Risk Assessment Tool 5 Year Breast Cancer Risk 1.90% Lifetime Breast Cancer Risk 4.00% Personal Breast Cancer No Personal Ovarian Cancer No Treatments None Family Cancers None LOCATION: [facility] BREAST COMPOSITION: The breasts are almost entirely [...] BIOPSIED. Dictated by: Eitan Blackwell MD on 06/02/2024 at 15:37 Approved by: Eitan Blackwell MD on 06/02/2024 at 15:47 Dictated By: Eitan Blackwell M.D. Signed By: 06/02/24 1548 DD/ 1547 TD/TT: Fiberglass Pipe Covering Supervisor: Procedure Note Radiology, RadiologistMD - 06/02/2024 [place] [address] Mammography Report Signed Patient: MARTIN MOORE MMR#: [id number] : 9Acct:[id number] Age/Sex: 73 / FADM Date: 06/02/24 Loc: MAMMO Attending Dr: SHAWN BARBER Ordering Physician: SHAWN BARBERResults: Date of Service: 06/02/24Follow Up: Procedure(s): MM screening mammo BI Accession Number(s): [id number] cc: SHAWN BARBER Patient Name: MARTIN MOORE MR#: [id number] : 1950 Exam Date: 06/02/2024 Ordering Doctor: DR SHAWN BARBER M.D. RADIOLOGY REPORT PROCEDURE: MM SCREENING MAMMO BI COMPARISON: MM SCREENING MAMMO BI, 04/12/2023. INDICATIONS: Screening Calculator Name NCI Breast Cancer Risk Assessment Tool 5 Year Breast Cancer Risk 1.90% Lifetime Breast Cancer Risk 4.00% Personal Breast Cancer No Personal Ovarian Cancer No Treatments None Family Cancers None LOCATION: The [facility] BREAST COMPOSITION: The breasts are almost entirely [...] BIOPSIED. Dictated by: Eitan Blackwell MD on 06/02/2024 at 15:37 Approved by: Eitan Blackwell MD on 06/02/2024 at 15:47 Dictated By: Eitan Blackwell M.D. Signed By:06/02/24 1548 DD/ 1547 TD/TT: Fiberglass Pipe Covering Supervisor: us Shawn Barber MD IMG BI PROCEDURES Final Result * (ABNORMAL) Diabetic Retinopathy Screening - OU - Both Eyes (12/20/2023) RESULTS abn Anatomical Region Laterality Modality Head Other 12/20/2023 us Shawn Barber MD OPHTH PHOTOGRAPHY Final Result * Colonoscopy (02/02/2020 12:00 PM EDT) Anatomical Region Laterality Modality Endoscopy 02/02/2020 12:0 0 PM EDT Narrative 02/02/2020 12:00 PM EDT PERFORMED AT [facility] LOCATION:[id number] polyp-tub.adenoma,diverticulosis-repeat 3 years Procedure Note CONVERSION, GENERIC - 09/16/2022 PERFORMED AT [facility] LOCATION:[id number] polyp-tub.adenoma,diverticulosis-repeat 3 years us Shawn Barber MD ENDOSCOPY PROCEDURE ORDERABLES Final Result * Microalbumin / creatinine urine ratio (07/05/2019) UCREA 91 28 - 217 [facility] MALB 18.3 [facility] Comment:mALB reference range not established. MICROALB/CREAT RATIO 201.1 [facility] 07/05/2019 us Shawn Barber MD LAB URINE ORDERABLES Final Res ult Performing Organization Address City/State/[facility] Co de Phone Number [facility] from Last 3 Months or Most Recently Relevant to Health Maintenance Insurance MEDICARE [place]ICAID [place] Advance Directives Documents on File Type Date Recorded Patient Weight Tester Expl anation Advance Directives and Living Will 05/29/20222021-4-1 Healthcare [facility] Care Teams Claim Taker Relationship Specialty Start Date End Date Shawn Barber MD [address] [facility] 110 [place] [address] PCP - ACO Reach 09/24/22 Shawn Barber MD [address] [facility] 110 [place] [address] PCP - General Internal Medicine 10/22/22 Kaylen Moore LPN 07/21/24
--- OUTSIDE RECORDS SUMMARY | 2024-10-12 14:25 | XMS_ITS | Encounter Summary ---
Author Organization [facility] Address [address] [facility] [place] [address] Care Team Providers Care Packer Denture Name Role Phone Shawn Barber MD Unavailable [phone] Shawn Barber MD Primary Care Provider [phone] Kaylen Moore LPN Unavailable Unavailable Encounter Details Date Type Department Care Team (Late st Contact Info) Description 09/12/2024 Abstract [facility] [address] [facility] 110 [place] [address] Shawn Barber MD 112 [facility] 110 [place] [address] Social History Tobacco Use Types [...] attend chur ch or shinto services? Never 12/06/2023 Do you belong to [...] Recorded Patient Health Questionnaire-2 Score 1 11/25/2022 [facility] - Occupational Stress Questionnaire [...] EDT Office Visit [facility] 112 [facility] 110 [place] [address] Shawn Barber MD 112 [facility] 110 [place], [place] [address] 10/26/2024 2:50 PM EDT Office Visit [facility] [address] [facility] 120 [place] [address] Colt Mendieta, DPM 3006 [facility] 5 [place] [address] documented as of this encounter Visit Diagnoses Not on filedocumented in this encounter Care Teams Packer Denture Relationship Specialty Start Date End Date Shawn Barber MD [address] [facility] 110 [place] [address] PCP - ACO Reach 09/24/22 Shawn Barber MD [address] [facility] 110 [place] [address] PCP - General Internal Medicine 10/22/22 Kaylen Moore LPN 07/21/24 documented as of this encounter
--- OUTSIDE RECORDS SUMMARY | 2024-10-12 14:25 | XMS_ITS | Encounter Summary ---
Author Organization [facility] Address [address] [facility] [place] [address] Care Team Providers Care Senior Fund Accountant Name Role Phone Shawn Barber MD Unavailable [phone] Shawn Barber MD Primary Care Provider [phone] Wednesday, Randee TEJEDA Unavailable [phone] Becca Campos GEODETIC SURVEYOR Unavailable [phone] Hilary Frank RN Unavailable [phone] Kaylen Moore WIRE FRAME MAKER Unavailable Unavailable Encounter Details Date Type Department Care Team (Late st Contact Info) Description 04/30/2023 Clinisync Result Encounter [facility] External Department Unsolicited Shawn Barber MD [address] [place] [place] [address] Social History Tobacco Use Types [...] often do you attend chur ch or sikh services? Never 01/29/2023 Do you belong to any clubs o r organizations such as sabianist groups, unions, fraternal or athletic groups, or [...] Health Questionnaire-2 Score 1 11/25/2022 [facility] of Occupat ional Health - Occupational [...] [facility] 110 [place] [address] Shawn Barber MD [address] [place] [place], [place] [address] 10/26/2024 2:50 PM EDT Office Visit [facility] [address] [facility] [place] [address] Colt Mendieta DPM [address] [address] documented as of this encounter Procedures Procedure Name Priority Date/Time Associated Diagnosis Comments XR DEXA AXIAL SKELETON 04/30/2023 11:25 AM EST documented in this encounter Results * XR DEXA AXIAL SKELETON (04/30/2023 11:25 AM EST) Anatomical Region Laterality Modality Other 04/30/2023 11:2 5 AM EST Narrative 04/30/2023 11:27 AM EST [address] [address] XRay Report Signed Patient: MARTIN MOORE MR#: [id number] : 1950 Acct:[id number] Age/Sex: 72 / F ADM Date: 04/30/23 Loc: CT Attending Dr: SHAWN BARBER Ordering Physician: SHAWN BARBER Date of Service: 04/30/23 Procedure(s): XR DEXA axial skeleton Accession Number(s): [id number] cc: SHAWN BARBER [address] [address] Patient Name: MARTIN MOORE MRN: [id number] date: 1950 Sex: F Assigned Patient Location: CT Current Patient Location: CT Accession/Order Number: [id number] Exam Date: 04/30/2023 10:10 Report Date: 04/30/2023 11:25 At the request of: SHAWN BARBER Procedure: XR DEXA axial skeleton EXAMINATION: XR DEXA axial skeleton HISTORY: Age Related Osteoporosis Without Current Fracture COMPARISON: Bone densitometry 10/16/2019 TECHNIQUE: Dual-energy X-ray absorptiometry (DXA) was performed. FINDINGS: SPINE ANALYSIS: Average bone mineral density is 1.352 g/cm2. T-score (standard deviation relative to young adult mean): 1.3 . +13.8% change since prior study. HIP ANALYSIS: Lowest bone mineral density is within the left femoral neck, 0.495 g/cm2. T-score (standard deviation relative to young adult mean): -3.1 (-2.5 within femoral neck) . -11.9% change since prior study. XR/XR DEXA axial skeleton IMPRESSION: World Josef Organization Classification: Osteoporosis - High Fracture Risk Electronically authenticated by: MATA CONWAY Date: 04/30/2023 11:25 Dictated By: Mata Conway M.D. Signed By: 04/30/23 1127 DD/ 1125 TD/TT: Maintenance Service Supervisor: Procedure Note Radiology, Radiologist, MD - 04/30/2023 [place] [address] XRay Report Signed Patient: MARTIN OMORE MMR#: [id number] : 9Acct:[id number] Age/Sex: 72 / FADM Date: 04/30/23 Loc: CT Attending Dr: SHAWN BARBER Ordering Physician: SHAWN BARBER Date of Service: 04/30/23 Procedure(s): XR DEXA axial skeleton Accession Number(s): [id number] cc: SHAWN BARBER [place] [id number] Patient Name: MARTIN MOORE MRN: [id number] date: 1950 Sex: F Assigned Patient Location: CT Current Patient Location: CT Accession/Order Number: [id number] Exam Date: 04/30/2023 10:10 Report Date: 04/30/2023 11:25 At the request of: SHAWN BARBER Procedure: XR DEXA axial skeleton EXAMINATION: XR DEXA axial skeleton HISTORY: Age Related Osteoporosis Without Current Fracture COMPARISON: Bone densitometry 10/16/2019 TECHNIQUE: Dual-energy X-ray absorptiometry (DXA) was performed. FINDINGS: SPINE ANALYSIS: Average bone mineral density is 1.352 g/cm2. T-score (standard deviation relative to young adult mean): 1.3 . +13.8% change since prior study. HIP ANALYSIS: Lowest bone mineral density is within the left femoral neck, 0.495 g/cm2. T-score (standard deviation relative to young adult mean): -3.1 (-2.5within femoral neck) . -11.9% change since prior study. XR/XR DEXA axial skeleton IMPRESSION: World Josef Organization Classification: Osteoporosis - High Fracture Risk Electronically authenticated by: MATA CONWAY Date: 04/30/2023 11:25 Dictated By: Mata Conway M.D. Signed By:04/30/23 1127 DD/ 1125 TD/TT: Maintenance Service Supervisor: us Shawn Barber MD [facility] Final Result documented in this encounter Visit Diagnoses Not on filedocumented in this encounter Care Teams Senior Fund Accountant Relationship Specialty Start Date End Date Shawn Barber MD [address] [place] [address] PCP - ACO Reach 09/24/22 Shawn Barber MD [address] [place] [address] PCP - General Internal Medicine 10/22/22WednesdayRandee LPN [address] [place] [address] Licensed Practical Nurse Family Medicine 12/29/22 06/09/24 Becca Campos LSW Member Of Technical Staff Family Medicine 12/29/22 08/24/24 Hilary Frank, BENITO Licensed Practical Nurse Family Medicine 06/09/24 07/21/24 Kaylen Moore LPN 07/21/24 documented as of this encounter
--- OUTSIDE RECORDS SUMMARY | 2024-10-12 14:25 | XMS_ITS | Encounter Summary ---
Author Organization [facility] Address [address] [facility] [place] [address] Care Team Providers Care Rn Hemodialysis Charge Name Role Phone Shawn Barber MD Unavailable [phone] Shawn Barber MD Primary Care Provider Wednesday, Randee TEJEDA Unavailable [phone] Becca Campos DRAFTER STRUCTURAL Unavailable [phone] Hilary Frank RN Unavailable [phone] Kaylen Moore HAND FABRIC CUTTER Unavailable Unavailable Encounter Details Date Type Department Care Team (Late st Contact Info) Description 09/01/2023 Abstract [facility] [address] [facility] 110 [place] [id number] Shawn Barber MD 112 [facility] 110 [place] [address] Social History Tobacco Use Types [...] often do you attend chur ch or quaker services? Never 01/29/2023 Do you belong to any clubs o r organizations such as yazidism groups, unions, fraternal or athletic groups, or [...] Recorded Patient Health Questionnaire-2 Score 1 11/25/2022 [facility] [place] of Occupat ional Health - Occupational Stress [...] EDT Office Visit [facility] 112 [facility] 110 [place] [address] Shawn Barber MD 112 [facility] 110 [place] [address] 10/26/2024 2:50 PM EDT Office Visit [facility] [address] [facility] [place] [address] Colt Mendieta, DPM 3006 [facility] 5 [place] [address] documented as of this encounter Visit Diagnoses Not on filedocumented in this encounter Care Teams Rn Hemodialysis Charge Relationship Specialty Start Date End Date Shawn Barber MD [address] [place] [address] PCP - ACO Reach 09/24/22 Shawn Barber MD [address] [facility] [place] [address] PCP - General Internal Medicine 10/22/22Wednesday, NIKHIL Jeff [address] [place] [address] Licensed Practical Nurse Family Medicine 12/29/22 06/09/24 Becca Campos LSW Genetic Counsellor Family Medicine 12/29/22 08/24/24 Hilary Frank, RN Licensed Practical Nurse Family Medicine 06/09/24 07/21/24 Kaylen Moore LPN 07/21/24 documented as of this encounter
--- OUTSIDE RECORDS SUMMARY | 2024-10-12 14:25 | XMS_ITS | Encounter Summary ---
Author Organization [facility] Address [address] [place] [address] Phone Care Team Providers Care Associate Professor Of Media Arts Name Role Phone Shawn Barber MD Primary Care Provider [phone] Shawn Barber MD Unavailable Encounter Details Date Type Department Care Team (Late st Contact Info) Description 11/08/2023 Scanned Document [facility] [address] [place] [address] Scanning, Generic Provider Social History Tobacco Use Types Packs/Day Years Used Date Smoking Tobacco: Every Day Cigarettes Smokeless Tobacco: Never Alcohol Use Standard Drinks/Week Comments Never 0 [...] Orientation Straight 03/30/2023 2: 20 PM EST COVID-19 Exposure Response Date Recorded In the last 10 days, have yo u been in contact with someone who was confirmed or suspected to have Coronavirus/COVID-19? No / Unsure 11/08/2023 10:00 AM EDT documented as of this encounter Plan of Treatment Upcoming Encounters Date Type Department Care Team (Late st Contact Info) Description 11/06/2024 1:00 PM EDT Office Visit [place] [id number] [address] Rama Kaba, STONE SANDBLASTER-SAFETY PATROL OFFICER [address] [facility] [address] [place] [address] documented as of this encounter Procedures Procedure Name Priority Date/Time Associated Diagnosis Comments OUTSIDE IMAGING SCAN 11/08/2023 documented in this encounter Results * OUTSIDE IMAGING SCAN (11/08/2023) Anatomical Region Laterality Modality Other Narrative 11/08/2023 Ordered by an unspecified provider. us Generic Provider Scanning OUTSIDE SCAN Final Result documented in this encounter Visit Diagnoses Not on filedocumented in this encounter Additional Health Concerns Assessment Noted Time PHQ-9 Depression Total Score: 11 023 2:33 PM EDT A fall risk assessment has been complete d for the patient 11/08/2023 10:16 AM EDT documented as of this encounter Care Teams Associate Professor Of Media Arts Relationship Specialty Start Date End Date Shawn Barber MD [address] [facility] 110 [place] [address] PCP - General 12/28/22 Shawn Barber MD [address] [facility] 110 [place] [address] 12/28/22 documented as of this encounter
--- OUTSIDE RECORDS SUMMARY | 2024-10-12 14:25 | XMS_ITS | Encounter Summary ---
Author Organization [facility] Address [address] [facility] [place] [address] Care Team Providers Care Marine Cargo Inspector Name Role Phone Shawn Barber MD Unavailable [phone] Shawn Barber MD Primary Care Provider Wednesday, Randee SEGALN Unavailable [phone] Becca Campos DIE LAY OUT WORKER Unavailable [phone] Hilary Frank RN Unavailable [phone] Kaylen Moore JOINT SEALER Unavailable Unavailable Encounter Details Date Type Department Care Team (Late st Contact Info) Description 10/07/2023 Abstract [facility] [address] [facility] 110 [place] [address] Shawn Barber MD 112 [facility] 110 [place] [address] Social History Tobacco Use Types [...] often do you attend chur ch or bahai services? Never 01/29/2023 Do you belong to [...] Recorded Patient Health Questionnaire-2 Score 1 11/25/2022 [facility] [place] of Occupat ional Health - Occupational [...] EDT Office Visit [facility] 112 [facility] 110 [place] [address] Shawn Barber MD 112 [facility] 110 [place] [address] 10/26/2024 2:50 PM EDT Office Visit [facility] [address] [place] [address] Colt Mendieta, DPM 3006 [facility] 5 [place] [address] documented as of this encounter Visit Diagnoses Not on filedocumented in this encounter Care Teams Marine Cargo Inspector Relationship Specialty Start Date End Date Shawn Barber MD [address] [place] [address] PCP - ACO Reach 09/24/22 Shawn Barber MD [address] [place] [address] PCP - General Internal Medicine 10/22/22Wednesday, NIKHIL Jeff [address] [place] [address] Licensed Practical Nurse Family Medicine 12/29/22 06/09/24 Becca Campos LSW Digital Ad Trafficker Family Medicine 12/29/22 08/24/24 Hilary Frank, RN Licensed Practical Nurse Family Medicine 06/09/24 07/21/24 Kaylen Moore LPN 07/21/24 documented as of this encounter
--- OUTSIDE RECORDS SUMMARY | 2024-10-12 14:25 | XMS_ITS | Encounter Summary ---
Author Organization [facility] Address [address] [place] [address] Phone Care Team Providers Care Scarfing Machine Operator Name Role Phone Shawn Barber MD Primary Care Provider [phone] Shawn Barber MD Unavailable [phone] Encounter Details Date Type Department Care Team (Late st Contact Info) Description 12/29/2022 Scanned Document [facility] [address] [place] [address] Conversion, Onbase Social History Tobacco Use Types Packs/Day Years Used Date Smoking Tobacco: Never Assessed PHQ-2 Answer Date Recorded Patient Health Questionnaire-2 Score 2 12/28/2022 Comments Unknown Sex and Gender Information Value Date Recorded Sex Assigned at Female 03/30/2023 2:20 PM EST Legal Sex Female 10:58 AM EDT Gender Identity Female 03/30/2023 2:20 PM EST Sexual Orientation Straight 03/30/2023 2: 20 PM EST documented as of this encounter Plan of Treatment Upcoming Encounters Date Type Department Care Team (Late st Contact Info) Description 11/06/2024 1:00 PM EDT Office Visit [facility] 703 [facility] [address] [place] [address] Rama Kaba, TABLET TECHNICIAN-FILTER WASHER AND PRESSER 703 [facility] [address] [place] [address] documented as of this encounter Visit Diagnoses Not on filedocumented in this encounter Additional Health Concerns Assessment Noted Time PHQ-9 Depression Total Score: 11 023 2:33 PM EDT documented as of this encounter Care Teams Scarfing Machine Operator Relationship Specialty Start Date End Date Shawn aBrber MD [address] [facility] 110 [place] [address] PCP - General 12/28/22 Shawn Barber MD [address] [facility] 110 [place] [address] 12/28/22 documented as of this encounter
--- OUTSIDE RECORDS SUMMARY | 2024-10-12 14:25 | XMS_ITS | Encounter Summary ---
Author Organization [facility] Address [address] [facility] [place] [address] Care Team Providers Care Printing Plate Clerk Name Role Phone Shawn Barber MD Unavailable [phone] Shawn Barber MD Primary Care Provider [phone] Wednesday, Randee SEGALN Unavailable [phone] Becca Campos PAPER GLUING OPERATOR Unavailable [phone] Hilary Frank RN Unavailable [phone] Kaylen Moore ACUPUNCTURE PHYSICIAN Unavailable Unavailable Encounter Details Date Type Department Care Team (Late st Contact Info) Description 08/25/2023 Abstract [facility] [address] [facility] 110 [place] [address] Shawn Barber MD 112 [facility] 110 [place] [address] Social History Tobacco Use Types [...] often do you attend chur ch or zoroastrian services? Never 01/29/2023 Do you belong to [...] Recorded Patient Health Questionnaire-2 Score 1 11/25/2022 [facility] [place] of Occupat ional Health - Occupational Stress [...] EDT Office Visit [facility] 112 [facility] 110 [place] [address] Shawn Barber MD 112 [facility] 110 [place] [address] 10/26/2024 2:50 PM EDT Office Visit [facility] [address] [place] [address] Colt Mendieta, DPM 3006 [facility] 5 [place] [address] documented as of this encounter Visit Diagnoses Not on filedocumented in this encounter Care Teams Printing Plate Clerk Relationship Specialty Start Date End Date Shawn Barber MD [address] [place] [address] PCP - ACO Reach 09/24/22 Shawn Barber MD [address] [place] [address] PCP - General Internal Medicine 10/22/22Wednesday, NIKHIL Jeff [address] [place] [address] Licensed Practical Nurse Family Medicine 12/29/22 06/09/[address] LSW [address] Traffic Controller Family Medicine 12/29/22 08/24/24 Hilary Frank, RN Licensed Practical Nurse Family Medicine 06/09/24 07/21/24 Kaylen Moore LPN 07/21/24 documented as of this encounter
--- OUTSIDE RECORDS SUMMARY | 2024-10-12 14:25 | XMS_ITS | Encounter Summary ---
Author Organization [facility] Address [address] [facility] [place] [address] Care Team Providers Care Environmental Program Manager Name Role Phone Shawn Barber MD Unavailable [phone] Shawn Barber MD Primary Care Provider [phone] Wednesday, Randee SEGALN Unavailable [phone] Becca Campos SONOGRAM TECHNICIAN Unavailable [phone] Hilary Frank RN Unavailable [phone] Kaylen Moore FIRER PORTABLE BOILER Unavailable Unavailable Encounter Details Date Type Department Care Team (Late st Contact Info) Description 05/04/2023 Abstract [facility] [address] [facility] 110 [place] [address] Shawn Barber MD 112 [facility] 110 [place] [address] Social History Tobacco Use Types [...] Recorded Patient Health Questionnaire-2 Score 1 11/25/2022 [facility] [place] of Occupat ional Health - Occupational Stress [...] Visit [facility] [address] [facility] 110 [place] [address] Shawn Barber MD [address] [facility] 110 [place] [address] 10/26/2024 2:50 PM EDT Office Visit [facility] [address] [place] [address] Colt Mendieta, DPM 3006 [facility] 5 [place] [address] documented as of this encounter Visit Diagnoses Not on filedocumented in this encounter Care Teams Environmental Program Manager Relationship Specialty Start Date End Date Shawn Barber MD [address] [place] [address] PCP - ACO Reach 09/24/22 Shawn Barber MD [address] [place] [address] PCP - General Internal Medicine 10/22/22Wednesday, NIKHIL Jeff [address] [place] [address] Licensed Practical Nurse Family Medicine 12/29/22 06/09/24 Becca Campos LSW Exploration Driller Family Medicine 12/29/22 08/24/24 Hilary Frank, RN Licensed Practical Nurse Family Medicine 06/09/24 07/21/24 Kaylen Moore LPN 07/21/24 documented as of this encounter
--- OUTSIDE RECORDS SUMMARY | 2024-10-12 14:25 | XMS_ITS | Encounter Summary ---
Author Organization [facility] Address [address] [facility] [place] [address] Care Team Providers Care Police Worker Name Role Phone Shawn Barber MD Unavailable [phone] Shawn Barber MD Primary Care Provider [phone] Wednesday, Randee TEJEDA Unavailable [phone] Becca Campos ENTEROSTOMAL NURSE Unavailable [phone] Hilary Frank RN Unavailable [phone] Kaylen Moore PATTERNMAKER HAND Unavailable Unavailable Encounter Details Date Type Department Care Team (Late st Contact Info) Description 07/29/2023 Abstract [facility] [address] [facility] 110 [place] [id number] Shawn Barber MD 112 [facility] 110 [place] [address] Social History Tobacco Use Types [...] often do you attend chur ch or baptism services? Never 01/29/2023 Do you belong to [...] Questionnaire-2 Score 1 11/25/2022 [facility] [place] of Occupat ional Health - Occupational Stress [...] Office Visit [facility] 112 [facility] 110 [place] [address] Shawn Barber MD 112 [facility] 110 [place] [address] 10/26/2024 2:50 PM EDT Office Visit [facility] [address] [place] [address] Colt Mendieta, DPM 3006 [facility] 5 [place] [address] documented as of this encounter Visit Diagnoses Not on filedocumented in this encounter Care Teams Police Worker Relationship Specialty Start Date End Date Shawn Barber MD [address] [place] [address] PCP - ACO Reach 09/24/22 Shawn Barber MD [address] [place] [address] PCP - General Internal Medicine 10/22/22Wednesday, NIKHIL Jeff [address] [place] [address] Licensed Practical Nurse Family Medicine 12/29/22 06/09/24 Becca Campos LSW Emergency Vehicle Technician Family Medicine 12/29/22 08/24/24 Hilary Frank, RN Licensed Practical Nurse Family Medicine 06/09/24 07/21/24 Kaylen Moore LPN 07/21/24 documented as of this encounter
--- OUTSIDE RECORDS SUMMARY | 2024-10-12 14:25 | XMS_ITS | Encounter Summary ---
Author Organization [facility] Address [address] [place] [address] Phone Care Team Providers Care Endless Bed Drum Sander Name Role Phone Shawn Barber MD Primary Care Provider [phone] Shawn Barber MD Primary Care Provider [phone] Shawn Barber MD Unavailable Encounter Details Date Type Department Care Team (Late st Contact Info) Description 12/19/2022 Orders Only [facility] [address] [place] [address] Conversion, Onbase Social History Tobacco Use Types [...] Description 11/06/2024 1:00 PM EDT Office Visit [facility] [address] [facility] [address] [place] [address] Rama Kaba, STEAM BRUSH OPERATOR-PROJECT OFFICER 703 [facility], [address] [place] [address] Scheduled Orders Name Type Priority Associated Diagnoses Orde r Schedule OUTSIDE LAB SCAN Lab Ordered: 12/19/2022 documented as of this encounter Visit Diagnoses Not on filedocumented in this encounter Care Teams Endless Bed Drum Sander Relationship Specialty Start Date End Date Shawn Barber MD [address] [facility] 110 [place] [address] PCP - General 11/20/22 12/27/22 Shawn Barber MD [address] [facility] 110 [place] [address] PCP - General 12/28/22 Shawn Barber MD [address] [facility] 110 [place] [address] 12/28/22 documented as of this encounter
--- OUTSIDE RECORDS SUMMARY | 2024-10-12 14:25 | XMS_ITS | Encounter Summary ---
Author Organization [facility] Address [address] [facility] [place] [address] Care Team Providers Care Feed Research Aide Name Role Phone Shawn Barber MD Unavailable [phone] Shawn Barber MD Primary Care Provider [phone] Wednesday, Randee TEJEDA Unavailable [phone] Becca Campos TURNER IN Unavailable [phone] Hilary Frank RN Unavailable [phone] Kaylen Moore NARROW GAUGE OPERATOR Unavailable Unavailable Encounter Details Date Type Department Care Team (Late st Contact Info) Description 05/03/2023 Clinisync Result Encounter [facility] External Department Unsolicited Shawn Barber MD [address] [place] [address] Social History Tobacco Use Types [...] often do you attend chur ch or episcopal services? Never 01/29/2023 Do you belong to [...] Score 1 11/25/2022 [facility] of Occupat ional Health - Occupational [...] WAY [email or web address] 110 [place] [address] Shawn Barber MD [address] [place], [place] [address] 10/26/2024 2:50 PM EDT Office Visit [facility] [address] [place] [address] Colt Mendieta DPM [address] [address] documented as of this encounter Procedures Procedure Name Priority Date/Time Associated Diagnosis Comments CT LUNG SCREENING LOW DOSE 05/03/2023 8:54 PM EST documented in this encounter Results * CT LUNG SCREENING LOW DOSE (05/03/2023 8:54 PM EST) Anatomical Region Laterality Modality Other 05/03/2023 8:54 PM EST Narrative 05/03/2023 8:56 PM EST [address] [address] [address] Scan Report Signed Patient: MARTIN MOORE MR#: [id number] : 1950 Acct:[id number] Age/Sex: 72 / F ADM Date: 04/30/23 Loc: CT Attending Dr: SHAWN BARBER Ordering Physician: SHAWN BARBER Date of Service: 04/30/23 Procedure(s): CT lung screening low-dose Accession Number(s): [id number] cc: SHAWN BARBER [address] [address] Patient Name: MARTIN MOORE MRN: [id number] date: 1950 Sex: F Assigned Patient Location: CT Current Patient Location: Accession/Order Number: [id number] Exam Date: 04/30/2023 10:00 Report Date: 05/03/2023 20:54 At the request of: SHAWN BARBER Procedure: CT lung screening low-dose EXAMINATION: CT lung screening low-dose HISTORY: Nicotine Dependence F17.210 COMPARISON: CT chest 04/19/2021, CT abdomen pelvis 03/11/2023 TECHNIQUE: Axial, Coronal, and Sagittal images were created without the administration of IV contrast material. Dose reduction techniques were achieved by using automated exposure control and/or adjustment of mA and/or kV according to patient size and/or use of iterative reconstruction technique. FINDINGS: LUNGS: 3 adjacent nodules within right [...] etiology. Limited images of the upper abdomen. OTHER: Negative. CT/CT lung screening low-dose IMPRESSION: 1. Lung-RADS Category 4A- Suspicious. Findings for which additional diagnostic testing and/ or tissue sampling is recommended. 3 month LDCT; PET/CT may be used when there is a >= 8 mm solid component. 2. Nodules within posterior lateral right lower lobe superior segment which had not been seen on prior studies, but there has always been pleural fluid, and atelectasis/infiltrates within this region. While these lesions are not overtly suspicious, follow-up CT chest in 3 months is recommended to document stability. Electronically authenticated by: MATA CONWAY Date: 05/03/2023 20:54 Dictated By: Mata Conway M.D. Signed By: 05/03/232055 DD/ 53 TD/TT: Button Tacker: Procedure Note Radiology, Radiologist, MD - 05/03/2023 [place] [address] CT Scan Report Signed Patient: MARTIN MOORE MMR#: [id number] : 9Acct:[id number] Age/Sex: 72 / FADM Date: 04/30/23 Loc: CT Attending Dr: SHAWN BARBER Ordering Physician: SHAWN BARBER Date of Service: 04/30/23 Procedure(s): CT lung screening low-dose Accession Number(s): [id number] cc: SHAWN BARBER [place] [address] Patient Name: MARTIN MOORE MRN: [facility]:[id number] date: 1950 Sex: F Assigned Patient Location: CT Current Patient Location: Accession/Order Number: [id number] Exam Date: 04/30/2023 10:00 Report Date: 05/03/2023 20:54 At the request of: SHAWN BARBER Procedure: CT lung screening low-dose EXAMINATION: CT lung screening low-dose HISTORY: Nicotine Dependence F17.210 COMPARISON: CT chest 04/19/2021, CT abdomen pelvis 03/11/2023 TECHNIQUE: Axial, Coronal, and Sagittal images were created without the administration of IV contrast material. Dose reduction techniques were achieved by using automated exposure control and/or adjustment of mA and/or kV according to patient size and/or use of iterative reconstruction technique. FINDINGS: LUNGS: 3 adjacent nodules within right lower lobe superior segmentadjacent posterior wall, largest is 7 mm. Mild bronchiectasis within lung bases bilaterally. PLEURA: No mass, effusion, or pneumothorax. VASCULATURE: No abnormality. SE: No mass or pathologic adenopathy. MEDIASTINUM: No mass or pathologic adenopathy. CARDIAC: Atherosclerotic coronary artery disease and valve calcifications.No significant enlargement or pericardial effusion. AORTA: No aneurysm or dissection. CHEST WALL: No mass or axillary adenopathy BONES: No bone lesion or fracture. LIMITED ABDOMEN: Bilateral adrenal masses, 4.7 cm on right, 3.4 cm on left with scattered areas of fat density favoring benign etiology. Limited images ofthe upper abdomen. OTHER: Negative. CT/CT lung screening low-dose IMPRESSION: 1. Lung-RADS Category 4A- Suspicious. Findings for which additionaldiagnostic testing and/ or tissue sampling is recommended. 3 month LDCT; PET/CT maybe used when there is a >= 8 mm solid component. 2. Nodules within posterior lateral right lower lobe superior segmentwhich had not been seen on prior studies, but there has always been pleural fluid,and atelectasis/infiltrates within this region. While these lesions are not overtly suspicious, follow-up CT chest in 3 months is recommended to document stability. Electronically authenticated by: MATA CONWAY Date: 05/03/2023 20:54 Dictated By: Mata Conway M.D. Signed By:05/03/232055 DD/ 53 TD/TT: Button Tacker: Shawn Barber MD [facility] Final Result documented in this encounter Visit Diagnoses Not on filedocumented in this encounter Care Teams Feed Research Aide Relationship Specialty Start Date End Date Shawn Barber MD [address] [place] [address] PCP - ACO Reach 09/24/22 Shawn Barber MD [address] [place] [address] PCP - General Internal Medicine 10/22/22WednesdayRandee LPN [address] [place] [address] Licensed Practical Nurse Family Medicine 12/29/22 06/09/24 Becca Campos LSW Sales Recruiting Coordinator Family Medicine 12/29/22 08/24/24 Hilary Frank, RN Licensed Practical Nurse Family Medicine 06/09/24 07/21/24 Kaylen Moore LPN 07/21/24 documented as of this encounter
--- OUTSIDE RECORDS SUMMARY | 2024-10-12 14:25 | XMS_ITS | Encounter Summary ---
Author Organization [facility] Address [address] [facility] [place] [address] Care Team Providers Care Miniature Train Driver Name Role Phone Shawn Barber MD Unavailable [phone] Shawn Barber MD Primary Care Provider [phone] Wednesday, Randee SEGALN Unavailable [phone] Becca Campos SECURITIES COMPLIANCE EXAMINER Unavailable [phone] Hilary Frank RN Unavailable [phone] Kaylen Moore COMPLEX CASE MANAGER Unavailable Unavailable Encounter Details Date Type Department Care Team (Late st Contact Info) Description 07/28/2023 Abstract [facility] 112 [facility] 110 [place] [address] Austin Rivas MD 112 [facility] 110 [place], [place] [address] Social History Tobacco Use Types Packs/Day Years [...] any clubs o r organizations such as latter-day groups, unions, fraternal or athletic groups, or [...] Score 1 11/25/2022 [facility] [place] of Occupat ional Health - Occupational Stress [...] EDT Office Visit [facility] 112 [facility] 110 [place] [address] Shawn Barber MD 112 [facility] 110 [place] [address] 10/26/2024 2:50 PM EDT Office Visit [facility] [address] [place] [address] Colt Mendieta, DPM 3006 [facility] 5 [place] [address] documented as of this encounter Visit Diagnoses Not on filedocumented in this encounter Care Teams Miniature Train Driver Relationship Specialty Start Date End Date Shawn Barber MD [address] [place] [address] PCP - ACO Reach 09/24/22 Shawn Barber MD [address] [place] [address] PCP - General Internal Medicine 10/22/22Wednesday, NIKHIL Jeff [address] [place] [address] Licensed Practical Nurse Family Medicine 12/29/22 06/09/24 Becca Campos LSW Detective Captain Family Medicine 12/29/22 08/24/24 Hilary Frank, RN Licensed Practical Nurse Family Medicine 06/09/24 07/21/24 Kaylen Moore LPN 07/21/24 documented as of this encounter
--- OUTSIDE RECORDS SUMMARY | 2024-10-12 14:25 | XMS_ITS | Encounter Summary ---
Author Organization [facility] Address [address] [facility] [place] [address] Care Team Providers Care Pear Picker Name Role Phone Shawn Barber MD Unavailable [phone] Shawn Barber MD Primary Care Provider [phone] Kaylen Moore LPN Unavailable Unavailable Reason for Visit * Reason Comments Med Refill Encounter Details Date Type Department Care Team (Late st Contact Info) Description 10/05/2024 Refill [facility] [address] [facility] 110 [place] [address] PA [address] [facility] 110 [place], [place] [address] Depressive disorder Social History Tobacco Use Types Packs/Day Years [...] often do you attend chur ch or voodoo services? Never 12/06/2023 Do you belong to [...] Recorded Patient Health Questionnaire-2 Score 1 11/25/2022 [facility] [place] of Occupat ional Health - Occupational [...] any time in the past 12 m [facility], were you homeless or [...] PM EDT Office Visit [facility] 112 [facility] 110 [place] [address] Shawn Barber MD 112 [facility] 110 [place] [address] 10/26/2024 2:50 PM EDT Office Visit [facility] [address] [facility] 120 [place] [phone] Colt Mendieta, DPChris 3006 [facility] 5 [place] [address] documented as of this encounter Visit Diagnoses Diagnosis Depressive disorder Depressive disorder, not elsewhere classified documented in this encounter Care Teams Pear Picker Relationship Specialty Start Date End Date Shawn Barber MD [address] [facility] 110 [place] [address] PCP - ACO Reach 09/24/22 Shawn Barber MD [address] [facility] 110 [place] [address] PCP - General Internal Medicine 10/22/22 Kaylen Moore LPN 07/21/24 documented as of this encounter
--- OUTSIDE RECORDS SUMMARY | 2024-10-12 14:25 | XMS_ITS | Clinical Summary ---
Author Organization [facility] Address [id number] [address] [place] [address] Care Team Providers Care Associate Spa Director Name Role Phone Shawn Barber MD Primary Care Provider [phone] Allergies No known active allergies Medications HYDROcodone-acet aminophen (NORCO) 5-325 mg per tabletIndication s:Humeral head fracture, left, closed, initial encounter 1-2 tablets every 6 hr as needed for pain 16 tablet 8 Active insulin NPH and regular human (NovoLIN 70/30 U-100 Insulin) 100 unit/mL (70-30) injection inject 45 units SQ twice daily Active metOLazone (ZAROXOLYN) 2.5 mg tablet Take 1 tablet (2.5 mg total) by mouth daily. 3 Active HYDROcodone-acet aminophen (NORCO) 5-325 mg per tablet Take 1 tablet by mouth every 6 (six) hours as needed. 3 Active cyclobenzaprine (FLEXERIL) 10 mg tablet TAKE 1 TABLET BY MOUTH THREE TIMES DAILY Active bumetanide (BUMEX) 1 mg tablet Take 2 tablets (2 mg total) by mouth daily. 3 Active fluticasone propion-salmeter oL (ADVAIR) 250-50 mcg/dose DISKUS Inhale 1 puff in the morning and 1 puff before bedtime. Active dapagliflozin propanediol (FARXIGA) 10 mg tablet Take 1 tablet (10 mg total) by mouth. 3 Active FLUoxetine (PROzac) 40 mg capsule Take 1 capsule (40 mg total) by mouth in the morning. Active magnesium oxide 400 mg magnesium tablet 400 mg in the morning. 3 Active metoprolol tartrate (LOPRESSOR) 50 mg tablet Take 1 tablet (50 mg total) by mouth. Active omeprazole (PriLOSEC) 40 mg capsule TAKE 1 CAPSULE BY MOUTH TWICE DAILY Active pantoprazole (PROTONIX) 40 mg EC tablet Take 1 tablet (40 mg total) by mouth in the morning and 1 tablet (40 mg total) before bedtime. Active potassium chloride (K-TAB,KLOR-CON) 20 mEq CR tablet Take 1 tablet (20 mEq total) by mouth in the morning. 3 Active tiZANidine (ZANAFLEX) 4 mg capsule Take 1 capsule (4 mg total) by mouth. Active vancomycin (VANCOCIN) 50 mg/mL oral solution TAKE 2 & 1/2 (TWO & ONE-HALF) ML BY MOUTH 4 TIMES DAILY FOR 10 DAYS DISCARD REMAINING MEDICATION AFTER 10 DAYS 3 Active sulfacetamide (BLEPH-10) 10 % ophthalmic solution Active promethazine (PHENERGAN) 25 mg tablet Take 1 tablet (25 mg total) by mouth every 6 (six) hours as needed. 3 Active neomycin-polymyx in-HC (CORTISPORIN) 3.5-10,000-1 mg/mL-unit/mL-% otic suspension INSTILL 3 TO 4 DROPS INTO AFFECTED EAR(S) 4 TIMES DAILY FOR 10 DAYS (MORNING, NOON, EVENING, BEFORE BEDTIME) 3 Active loratadine (CLARITIN) 10 mg tablet Take 1 tablet (10 mg total) by mouth in the morning. 3 Active lisinopriL (PRINIVIL,ZESTRI L) 20 mg tablet Take 1 tablet (20 mg total) by mouth in the morning. 3 Active levETIRAcetam (KEPPRA) 500 mg tablet Take 0.5 tablets (250 mg total) by mouth in the morning and 0.5 tablets (250 mg total) before bedtime. Active ibuprofen (ADVIL,MOTRIN) 200 mg tablet Take 1 tablet as needed by oral route. Active estradioL (ESTRACE) 0.01 % (0.1 mg/gram) vaginal cream APPLY A PEA SIZE AMOUNT TO URETHRA OR INNER VAGINA 3 TIMES A WEEK FOR 1 MONTH THEN 2 TIMES A WEEK FOR MAINTENANCE Active TRULICITY 0.75 mg/0.5 mL pen injector Inject 0.5 mL (0.75 mg total) under the skin. 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, with long-term current use of insulin 04/22/2023 Social History Tobacco Use Types Packs/Day Years Used Date Smoking Tobacco: Every Day Cigarettes Smokeless Tobacco: Never Tobacco Cessation:Ready to Q uit: Not Asked; Counseling Given: Not Answered Alcohol Use Standard Drinks/Week Comments Not Currently 0 (1 standard drink = 0.6 oz pur e alcohol) PHQ-2 Answer Date Recorded Total Score 0 04/20/2023 Childcare Answer Date Recorded Childcare Unknown 10/12/2018 Employment Answer Date Recorded Employment Unknown 10/12/2018 Hunger Screening Answer Date Recorded Within the past 12 months we worried whether our food would run out before we got money to buy more. Never True 04/20/2023 Within the past 12 months th e food we bought just didn't last and we didn't have money to get more. Never True 04/20/2023 Purpose - Life Answer Date Recorded Purpose and direction in life Unknown Comments Unknown Sex and Gender Information Value Date Recorded Sex Assigned at Not on file Legal Sex Female 11:50 AM EDT Gender Identity Not on file Sexual Orientation Not on file Last Filed Vital Signs Vital Sign Reading Time Taken Comments Blood Pressure 110/62 04/20/2023 12:31 PM EST Pulse 77 04/20/2023 12:31 PM EST Temperature 36.8 C (98.2 F) 09/04/2017 2:45 PM EDT Respiratory Rate 20 09/04/2017 2:45 PM EDT Oxygen Saturation 94% 09/04/2017 3:00 PM EDT Inhaled Oxygen Concentration - - Weight 69.9 kg (154 lb) 04/20/2023 12:31 PM EST Height 152.4 cm (5') 04/20/2023 12:31 PM EST Body Mass Index 30.08 04/20/2023 12:31 PM EST Plan of Treatment Health Maintenance Due Date Last Done Comments Diabetic Ophthalmology Exam 1950 DTaP,Tdap and Td Vaccines (1 - Tdap) 12/08/1967 Fall Risk Screening 2013 Zoster (Shingles) Vaccine (2 of 3) 04/02/20162015 Depression Screening 04/20/2024 04/20/2023 Tobacco Screening 04/20/2024 04/20/2023 Influenza Vaccine 01/01/2025 03/01/2023, , 01/31/2022, Additional history exists Medical Devices Not on file Insurance MEDICARE MEDICAID [place] Care Teams Associate Spa Director Relationship Specialty Start Date End Date Shawn Barber MD [facility] [place] [phone] PCP - General Internal Medicine 09/04/17
--- OUTSIDE RECORDS SUMMARY | 2024-10-12 14:25 | XMS_ITS | Encounter Summary ---
Author Organization [facility] Address [address] [facility] [place] [address] Care Team Providers Care Aerotriangulation Specialist Name Role Phone Shawn Barber MD Unavailable [phone] Shawn Barber MD Primary Care Provider [phone] Kaylen Moore LPN Unavailable Unavailable Encounter Details Date Type Department Care Team (Late st Contact Info) Description 10/05/2024 Orders Only [facility] [address] [place] [address] [place] [phone] Rachel Pena LPN [address] [place] [address] Pneumonia of left lower lobe due to infectious organism Social History Tobacco Use Types Packs/Day Years [...] attend chur ch or zoroastrianism services? Never 12/06/2023 Do you belong to any clubs o r organizations such as nondenominational groups, unions, fraternal or athletic groups, or [...] Recorded Patient Health Questionnaire-2 Score 1 11/25/2022 [facility] [place] of Occupat ional Health - Occupational Stress [...] any time in the past 12 m [facility], were you homeless or living [...] 2:00 PM EDT Office Visit [facility] 112 [facility] 110 [place] [address] Shawn Barber MD 112 [facility] 110 [place] [address] 10/26/2024 2:50 PM EDT Office Visit [facility] [address] [place] [address] [place] [phone] Colt Mendieta, DPM 3006 [facility] 5 [place] [address] documented as of this encounter Visit Diagnoses Diagnosis Pneumonia of left lower lobe due to infectious organism documented in this encounter Care Teams Aerotriangulation Specialist Relationship Specialty Start Date End Date Shawn Barber MD [address] [facility] 110 [place] [address] PCP - ACO Reach 09/24/22 Shawn Barber MD [address] [facility] [address] [place] [address] PCP - General Internal Medicine 10/22/22 Kaylen Moore LPN 07/21/24 documented as of this encounter
--- OUTSIDE RECORDS SUMMARY | 2024-10-12 14:25 | XMS_ITS | Encounter Summary ---
Author Organization [facility] Address [address] [facility] [place] [address] Care Team Providers Care Marine Electrician Apprentice Name Role Phone Shawn Barber MD Unavailable [phone] Shawn Barber MD Primary Care Provider Wednesday, Randee TEJEDA Unavailable [phone] Becca Campos APPAREL EMBROIDERY DIGITIZER Unavailable [phone] Hilary Frank RN Unavailable [phone] Kaylen Moore STAFF FIELD ENGINEER Unavailable Unavailable Encounter Details Date Type Department Care Team (Late st Contact Info) Description 07/27/2023 Abstract [facility] [address] [facility] 110 [place] [address] Shawn Barber MD 112 [facility] 110 [place] [address] Social History Tobacco Use Types [...] often do you attend chur ch or confucianism services? Never 01/29/2023 Do you belong to any clubs o r organizations such as jainism groups, unions, fraternal or athletic groups, or [...] 1 11/25/2022 [facility] [place] of Occupat ional Health - Occupational Stress [...] PALOM[place]ES 112 [facility] 110 [place] [address] Shawn Barber MD 112 [facility] 110 [place] [address] 10/26/2024 2:50 PM EDT Office Visit [facility] [address] [place] [address] Colt Mendieta, DPM 3006 [facility] 5 [place] [address] documented as of this encounter Visit Diagnoses Not on filedocumented in this encounter Care Teams Marine Electrician Apprentice Relationship Specialty Start Date End Date Shawn Barber MD [address] [place] [address] PCP - ACO Reach 09/24/22 Shawn Barber MD [address] [place] [address] PCP - General Internal Medicine 10/22/22Wednesday, NIKHIL Jeff [address] [place] [address] Licensed Practical Nurse Family Medicine 12/29/22 06/09/24 Becca Campos LSW Meter Reader Chief Family Medicine 12/29/22 08/24/24 Hilary Frank, RN Licensed Practical Nurse Family Medicine 06/09/24 07/21/24 Kaylen Moore LPN 07/21/24 documented as of this encounter
--- OUTSIDE RECORDS SUMMARY | 2024-10-12 14:25 | XMS_ITS | Encounter Summary ---
Author Organization [facility] Address [address] [place] [address] Phone Care Team Providers Care Brick Tender Name Role Phone Shawn Barber MD Primary Care Provider [phone] Shawn Barber MD Primary Care Provider [phone] Shawn Barber MD Unavailable [phone] Encounter Details Date Type Department Care Team (Late st Contact Info) Description 11/18/2022 Scanned Document [facility] [address] [place] [id number] Scanning, Generic Provider Social History Tobacco Use Types Packs/Day Years Used Date Smoking Tobacco: Never Assessed Comments Unknown Sex and Gender Information Value Date Recorded Sex Assigned at Female 03/30/2023 2:20 PM EST Legal Sex Female 10:58 AM EDT Gender Identity Female 03/30/2023 2:20 PM EST Sexual Orientation Straight 03/30/2023 2 :20 PM EST documented as of this encounter Plan of Treatment Upcoming Encounters Date Type Department Care Team (Late st Contact Info) Description 11/06/2024 1:00 PM EDT Office Visit [facility] [address] [facility] [address] [place] [address] Rama Kaba, AMBULATORY TECHNOLOGIST-CONCERT PROMOTER 703 [facility] 2, [address] [place] [address] documented as of this encounter Procedures Procedure Name Priority Date/Time Associated Diagnosis Comments OUTSIDE IMAGING SCAN 11/18/2022 documented in this encounter Results * OUTSIDE IMAGING SCAN (11/18/2022) Anatomical Region Laterality Modality Other Narrative 11/18/2022 Ordered by an unspecified provider. us Generic Provider Scanning OUTSIDE SCAN Final Result documented in this encounter Visit Diagnoses Not on filedocumented in this encounter Care Teams Brick Tender Relationship Specialty Start Date End Date Shawn Barber MD [address] [facility] 110 [place] [address] PCP - General 11/20/22 12/27/22 Shawn Barber MD [address] [facility] 110 [place] [address] PCP - General 12/28/22 Shawn Barber MD [address] [facility] 110 [place] [address] 12/28/22 documented as of this encounter
--- OUTSIDE RECORDS SUMMARY | 2024-10-12 14:25 | XMS_ITS | Encounter Summary ---
Author Organization [facility] Address [address] [facility] [place] [address] Care Team Providers Care Yard Switcher Name Role Phone Shawn Barber MD Unavailable [phone] Shawn Barber MD Primary Care Provider Wednesday, Randee TEJEDA Unavailable [phone] Becca Campos ENVIRONMENTAL SERVICES ASSOCIATE Unavailable [phone] Hilary Frank RN Unavailable [phone] Kaylen Moore POULTRY AND FISH BUTCHER Unavailable Unavailable Encounter Details Date Type Department Care Team (Late st Contact Info) Description 09/29/2023 Abstract [facility] 112 [facility] 110 [place] [address] Shawn Barber MD 112 [facility] 110 [place] [address] Social History Tobacco Use Types [...] Recorded Patient Health Questionnaire-2 Score 1 11/25/2022 [facility] [place] of Occupat ional Health - Occupational Stress [...] PALOMARES 112 [facility] 110 [place] [address] Shawn Barber MD 112 [facility] 110 [place] [address] 10/26/2024 2:50 PM EDT Office Visit [facility] [address] [place] [address] Colt Mendieta, DPM 3006 [facility] 5 [place] [address] documented as of this encounter Visit Diagnoses Not on filedocumented in this encounter Care Teams Yard Switcher Relationship Specialty Start Date End Date Shawn Barber MD [address] [place] [address] PCP - ACO Reach 09/24/22 Shawn Barber MD [address] [place] [address] PCP - General Internal Medicine 10/22/22Wednesday, NIKHIL Jeff [address] [place] [address] Licensed Practical Nurse Family Medicine 12/29/22 06/09/24 Becca Campos LSW Private Tutor Family Medicine 12/29/22 08/24/24 Hilary Frank, RN Licensed Practical Nurse Family Medicine 06/09/24 07/21/24 Kaylen Moore LPN 07/21/24 documented as of this encounter
--- OUTSIDE RECORDS SUMMARY | 2024-10-12 14:25 | XMS_ITS | Encounter Summary ---
Author Organization [facility] Address [address] [facility] [place] [address] Care Team Providers Care Streetcar Repairer Helper Name Role Phone Shawn Barber MD Unavailable [phone] Shawn Barber MD Primary Care Provider [phone] Wednesday, Randee TEJEDA Unavailable [phone] Becca Campos DANCE COACH Unavailable [phone] Hilary Frank RN Unavailable [phone] Kaylen Moore SUPERINTENDENT OF SCHOOLS Unavailable Unavailable Encounter Details Date Type Department Care Team (Late st Contact Info) Description 09/09/2023 Abstract [facility] [address] [facility] 110 [place] [address] Shawn Barber MD 112 [facility] 110 [place] [address] Social History Tobacco Use Types [...] often do you attend chur ch or jewish services? Never 01/29/2023 Do you belong to [...] Recorded Patient Health Questionnaire-2 Score 1 11/25/2022 [facility] [place] of Occupat ional Health - Occupational Stress [...] [facility] 110 [place] [address] Shawn Barber MD 112 [facility] 110 [place] [address] 10/26/2024 2:50 PM EDT Office Visit [facility] [address] [place] [address] Colt Mendieta, DPM 3006 [facility] 5 [place] [address] documented as of this encounter Visit Diagnoses Not on filedocumented in this encounter Care Teams Streetcar Repairer Helper Relationship Specialty Start Date End Date Shawn Barber MD [address] [place] [address] PCP - ACO Reach 09/24/22 Shawn Barber MD [address] [place] [address] PCP - General Internal Medicine 10/22/22Wednesday, NIKHIL Jeff [address] [place] [address] Licensed Practical Nurse Family Medicine 12/29/22 06/09/24 Becca Campos LSW Impregnator And Drier Helper Family Medicine 12/29/22 08/24/24 Hilary Frank, RN Licensed Practical Nurse Family Medicine 06/09/24 07/21/24 Kaylen Moore LPN 07/21/24 documented as of this encounter
--- OUTSIDE RECORDS SUMMARY | 2024-10-12 14:25 | XMS_ITS | Encounter Summary ---
Author Organization [facility] Address [address] [facility] [place] [address] Care Team Providers Care Sider Mechanic Name Role Phone Shawn Barber MD Unavailable [phone] Shawn Barber MD Primary Care Provider [phone] Wednesday, Randee TEJEDA Unavailable [phone] Becca Campos CUSTOM SHOEMAKER Unavailable [phone] Hilary Frank RN Unavailable [phone] Kaylen Moore PUBLIC RELATIONS ASSISTANT Unavailable Unavailable Encounter Details Date Type Department Care Team (Late st Contact Info) Description 07/13/2023 Abstract [facility] [address] [facility] 110 [place] [address] Shawn Barber MD 112 [facility] 110 [place] [address] Social History Tobacco Use Types [...] Recorded Patient Health Questionnaire-2 Score 1 11/25/2022 [facility] [place] of Occupat ional Health - Occupational Stress [...] EDT Office Visit [facility] [place] 112 [facility] 110 [place] [address] Shawn Barber MD 112 [facility] 110 [place] [address] 10/26/2024 2:50 PM EDT Office Visit [facility] [address] [place] [address] Colt Mendieta, DPM 3006 [facility] 5 [place] [address] documented as of this encounter Visit Diagnoses Not on filedocumented in this encounter Care Teams Sider Mechanic Relationship Specialty Start Date End Date Shawn Barber MD [address] [place] [address] PCP - ACO Reach 09/24/22 Shawn Barber MD [address] [place] [address] PCP - General Internal Medicine 10/22/22Wednesday, NIKHIL Jeff [address] [place] [address] Licensed Practical Nurse Family Medicine 12/29/22 06/09/24 Becca Campos LSW Bandage Winding Machine Operator Family Medicine 12/29/22 08/24/24 Hilary Frank, RN Licensed Practical Nurse Family Medicine 06/09/24 07/21/24 Kaylen Moore LPN 07/21/24 documented as of this encounter
--- OUTSIDE RECORDS SUMMARY | 2024-10-12 14:25 | XMS_ITS | Encounter Summary ---
Author Organization [facility] Address [address] [facility] [place] [address] Care Team Providers Care Mergers And Acquisitions Banker Name Role Phone Shawn Barber MD Unavailable [phone] Shawn Barber MD Primary Care Provider [phone] Wednesday, Randee SEGALN Unavailable [phone] Becca Campos MANAGER WELDING Unavailable [phone] Hilary Frank RN Unavailable [phone] Kaylen Moore PLANER OPERATOR Unavailable Unavailable Encounter Details Date Type Department Care Team (Late st Contact Info) Description 05/04/2023 Orders Only [facility] [address] [place] [address] A, Unknown Practice [address] [place], [place] [address] Social History Tobacco Use Types Packs/Day Years [...] Health Questionnaire-2 Score 1 11/25/2022 [facility] of Occupat ional Health - Occupational [...] FM [address] [facility] 110 [place] [address] Shawn Barber MD [address] [facility] 110 [place] [address] 10/26/2024 2:50 PM EDT Office Visit [facility] [address] [facility] 120 [place] [address] Colt Mendieta, DPM 3006 [facility] 5 [place] [address] documented as of this encounter Procedures Procedure Name Priority Date/Time Associated Diagnosis Comments CT LUNG SCREENING LOW DOSE Routine 04/30/2023 10:48 AM EST XR DEXA AXIAL SKELETON* Routine 04/30/2023 10:18 AM EST documented in this encounter Results * CT lung screening low dose (04/30/2023 10:48 AM EST) Anatomical Region Laterality Modality Lung Computed Tomogra phy us Unknown Practice A IMG CT PROCEDURES Final Resul t * XR DEXA AXIAL SKELETON* (04/30/2023 10:18 AM EST) Anatomical Region Laterality Modality Radiographic Bhavya ging us Unknown Practice A IMG XR PROCEDURES Final Resul t documented in this encounter Visit Diagnoses Not on filedocumented in this encounter Care Teams Mergers And Acquisitions Banker Relationship Specialty Start Date End Date Shawn Barber MD [address] [place] [address] PCP - ACO Reach 09/24/22 Shawn Barber MD [address] [place] [address] PCP - General Internal Medicine 10/22/22WednesdayRandee LPN [address] [place] [address] Licensed Practical Nurse Family Medicine 12/29/22 06/09/24 Becca Campos LSW Registered Nurse Teacher Family Medicine 12/29/22 08/24/24 Hilary Frank, RN Licensed Practical Nurse Family Medicine 06/09/24 07/21/24 Kaylen Moore LPN 07/21/24 documented as of this encounter
--- OUTSIDE RECORDS SUMMARY | 2024-10-12 14:25 | XMS_ITS | Encounter Summary ---
Author Organization [facility] Address [address] [place] [place] [address] Care Team Providers Care Stock Turner Name Role Phone Shawn Barber MD Unavailable [phone] Shawn Barber MD Primary Care Provider [phone] Wednesday, Randee SEGALN Unavailable [phone] Becca Campos SECRETARY OFFICE CLERK Unavailable [phone] Hilary Frank RN Unavailable [phone] Kaylen Moore INTRANET SUPPORT Unavailable Unavailable Encounter Details Date Type Department Care Team (Late st Contact Info) Description 05/10/2023 Orders Only [facility] [address] [place] [address] A, Unknown Practice [address] [place], [place] [address] Social History Tobacco Use Types Packs/Day Years [...] any clubs o r organizations such as taoist groups, unions, fraternal or athletic groups, or [...] Recorded Patient Health Questionnaire-2 Score 1 11/25/2022 [facility] of Occupat ional Health - [...] [address] [facility] 110 [place] [address] Shawn Barber MD [address] [facility] 110 [place] [address] 10/26/2024 2:50 PM EDT Office Visit [facility] [address] [facility] 120 [place] [address] Colt Mendieta, DPM 3006 [facility] 5 [place] [address] documented as of this encounter Procedures Procedure Name Priority Date/Time Associated Diagnosis Comments SCANNED LABS Routine 05/07/2023 12:49 PM EST documented in this encounter Results * SCANNED LABS (05/07/2023 12:49 PM EST) us Unknown Practice A LAB CHG PERFORMABLES Final Re sult documented in this encounter Visit Diagnoses Not on filedocumented in this encounter Care Teams Stock Turner Relationship Specialty Start Date End Date Shawn Barber MD [address] [place] [address] PCP - ACO Reach 09/24/22 Shawn Barber MD [address] [place] [address] PCP - General Internal Medicine 10/22/22Wednesday, NIKHIL Jeff [address] [place] [address] Licensed Practical Nurse Family Medicine 12/29/22 06/09/24 Becca Campos LSW Crane Helper Family Medicine 12/29/22 08/24/24 Hilary Frank, BENITO Licensed Practical Nurse Family Medicine 06/09/24 07/21/24 Kaylen Moore LPN 07/21/24 documented as of this encounter
--- OUTSIDE RECORDS SUMMARY | 2024-10-12 14:25 | XMS_ITS | Encounter Summary ---
Author Organization [facility] Address [address] [facility] [place] [address] Care Team Providers Care Trademark Paralegal Name Role Phone Shawn Barber MD Unavailable [phone] Shawn Barber MD Primary Care Provider [phone] Kaylen Moore LPN Unavailable Unavailable Encounter Details Date Type Department Care Team (Late st Contact Info) Description 09/12/2024 Abstract [facility] 112 [address] [facility] 110 [place] [address] Shawn Barber MD 112 [facility] 110 [place] [address] Social History Tobacco Use Types [...] attend chur ch or temple services? Never 12/06/2023 Do you belong to any clubs o r organizations such as synagogue groups, unions, fraternal or athletic groups, or [...] Patient Health Questionnaire-2 Score 1 11/25/2022 [facility] - Occupational Stress Questionnaire [...] any time in the past 12 m [facility], were you homeless or living in [...] Office Visit [facility] [place] 112 [facility] 110 [place] [address] Shawn Barber MD 112 [facility] 110 [place], [place] [address] 10/26/2024 2:50 PM EDT Office Visit [facility] [address] [facility] 120 [place] [address] Colt Mendieta, DPM 3006 [facility] 5 [place] [address] documented as of this encounter Visit Diagnoses Not on filedocumented in this encounter Care Teams Trademark Paralegal Relationship Specialty Start Date End Date Shawn Barber MD [address] [facility] 110 [place] [address] PCP - ACO Reach 09/24/22 Shawn Barber MD [address] [facility] 110 [place] [address] PCP - General Internal Medicine 10/22/22 Kaylen Moore LPN 07/21/24 documented as of this encounter
--- OUTSIDE RECORDS SUMMARY | 2024-10-12 14:25 | XMS_ITS | Encounter Summary ---
Author Organization [facility] Address [address] [place] [address] Phone Care Team Providers Care Certified Medical Biller Name Role Phone Shawn Barber MD Primary Care Provider [phone] Shawn Barber MD Primary Care Provider [phone] Shawn Barber MD Unavailable [phone] Encounter Details Date Type Department Care Team (Late st Contact Info) Description 11/21/2022 Scanned Document [facility] [address] [place] [address] Scanning, Generic Provider Social History Tobacco Use [...] Description 11/06/2024 1:00 PM EDT Office Visit [facility] 7[address] [place] [facility] [address] [place] [address] Rama Kaba, DOOR OPENER-COMPUTER SYSTEMS SOFTWARE ARCHITECT 703 [facility] 2, [address] [place] [address] documented as of this encounter Visit Diagnoses Not on filedocumented in this encounter Care Teams Certified Medical Biller Relationship Specialty Start Date End Date Shawn Barber MD [address] [facility] [place] [address] PCP - General 11/20/22 12/27/22 Shawn Barber MD [address] [facility] [place] [address] PCP - General 12/28/22 Shawn Barber MD [address] [facility] [place] [address] 12/28/22 documented as of this encounter
--- OUTSIDE RECORDS SUMMARY | 2024-10-12 14:25 | XMS_ITS | Encounter Summary ---
Author Organization [facility] Address [address] [place] [address] Phone Care Team Providers Care Emergency Planning And Response Manager Name Role Phone Shawn Barber MD Primary Care Provider [phone] Shawn Barber MD Unavailable [phone] Encounter Details Date Type Department Care Team (Late st Contact Info) Description 11/09/2023 Scanned Document [facility] [address] [place] [address] Scanning, Generic Provider Social History [...] Description 11/06/2024 1:00 PM EDT Office Visit [place] [address] [address] Rama Kaba, MEDICAL REFERRAL COORDINATOR-.NET ARCHITECT [facility], [address] [place] [address] documented as of this encounter Visit Diagnoses Not on filedocumented in this encounter Additional Health Concerns Assessment Noted Time PHQ-9 Depression Total Score: 11 023 2:33 PM EDT A fall risk assessment has been complete d for the patient 11/08/2023 10:16 AM EDT documented as of this encounter Care Teams Emergency Planning And Response Manager Relationship Specialty Start Date End Date Shawn Barber MD [address] [facility] 110 [place] [address] PCP - General 12/28/22 Shawn Barber MD [address] [facility] 110 [place] [address] 12/28/22 documented as of this encounter
--- OUTSIDE RECORDS SUMMARY | 2024-10-12 14:25 | XMS_ITS | Encounter Summary ---
Author Organization [facility] Address [address] [facility] [place] [address] Care Team Providers Care Record Retrieval Specialist Name Role Phone Shawn Barber MD Unavailable [phone] Shawn Barber MD Primary Care Provider Wednesday, Randee SEGALN Unavailable [phone] Becca Campos HEARING IMPAIRED ITINERANT TEACHER Unavailable [phone] Hilary Frank RN Unavailable [phone] Kaylen Moore RESPIRATORY CLINICIAN Unavailable Unavailable Encounter Details Date Type Department Care Team (Late st Contact Info) Description 08/24/2023 Abstract [facility] [address] [facility] 110 [place] [address] Shawn Barber MD 112 [facility] 110 [place] [address] Social History Tobacco Use Types [...] attend chur ch or pentecostal services? Never 01/29/2023 Do you belong to [...] Patient Health Questionnaire-2 Score 1 11/25/2022 [facility] of Occupat ional Health - Occupational Stress [...] Office Visit [facility] 112 [facility] 110 [place] [address] Shawn Barber MD 112 [facility] 110 [place] [address] 10/26/2024 2:50 PM EDT Office Visit [facility] [address] [place] [address] Colt Mendieta, DPM 3006 [facility] 5 [place] [address] documented as of this encounter Visit Diagnoses Not on filedocumented in this encounter Care Teams Record Retrieval Specialist Relationship Specialty Start Date End Date Shawn Barber MD [address] [place] [address] PCP - ACO Reach 09/24/22 Shawn Barber MD [address] [place] [address] PCP - General Internal Medicine 10/22/22Wednesday, NIKHIL Jeff [address] [place] [address] Licensed Practical Nurse Family Medicine 12/29/22 06/09/24 Becca Campos LSW Automation And Controls Manager Family Medicine 12/29/22 08/24/24 Hilary Frank, RN Licensed Practical Nurse Family Medicine 06/09/24 07/21/24 Kaylen Moore LPN 07/21/24 documented as of this encounter
--- OUTSIDE RECORDS SUMMARY | 2024-10-12 14:25 | XMS_ITS | Encounter Summary ---
Author Organization [facility] Address [address] [place] [address] Phone Care Team Providers Care Open Die Inspector Name Role Phone Shawn Barber MD Primary Care Provider [phone] Shawn Barber MD Unavailable [phone] Encounter Details Date Type Department Care Team (Late st Contact Info) Description 11/11/2023 Scanned Document [facility] [address] [place] [address] Scanning, Generic Provider Social History [...] Description 11/06/2024 1:00 PM EDT Office Visit [place] [id number] [address] Rama Kaba, APPLIANCE MECHANIC-INSURANCE CLAIM APPROVER [address] [facility], [address] [place] [address] documented as of this encounter Visit Diagnoses Not on filedocumented in this encounter Additional Health Concerns Assessment Noted Time PHQ-9 Depression Total Score: 11 023 2:33 PM EDT A fall risk assessment has been complete d for the patient 11/08/2023 10:16 AM EDT documented as of this encounter Care Teams Open Die Inspector Relationship Specialty Start Date End Date Shawn Barber MD [address] [facility] [address] [place] [address] PCP - General 12/28/22 Shawn Barber MD [address] [facility] 110 [place] [address] 12/28/22 documented as of this encounter
--- OUTSIDE RECORDS SUMMARY | 2024-10-12 14:26 | XMS_ITS | Encounter Summary ---
Author Organization [facility] Address [address] [facility] [place] [address] Care Team Providers Care Proj Mgr Name Role Phone Shawn Barber MD Unavailable [phone] Shawn Barber MD Primary Care Provider Wednesday, Randee SEGALN Unavailable [phone] Becca Campos FIRE PREVENTION ENGINEER Unavailable [phone] Hilary Frank RN Unavailable [phone] Kaylen Moore INSURANCE DEFENSE PARALEGAL Unavailable Unavailable Encounter Details Date Type Department Care Team (Late st Contact Info) Description 10/19/2023 Abstract [facility] [address] [facility] 110 [place] [id number] Shawn Barber MD 112 [facility] 110 [place] [address] Social History Tobacco Use Types [...] Recorded Patient Health Questionnaire-2 Score 1 11/25/2022 [facility] [place] of Occupat ional Health - Occupational Stress [...] EDT Office Visit [facility] 112 [facility] 110 [place] [address] Shawn Barber MD 112 [facility] 110 [place] [address] 10/26/2024 2:50 PM EDT Office Visit [facility] [address] [place] [address] Colt Mendieta, DPM 3006 [facility] 5 [place] [address] documented as of this encounter Visit Diagnoses Not on filedocumented in this encounter Care Teams Proj Mgr Relationship Specialty Start Date End Date Shawn Barber MD [address] [place] [address] PCP - ACO Reach 09/24/22 Shawn Barber MD [address] [place] [address] PCP - General Internal Medicine 10/22/22Wednesday, NIKHIL Jeff [address] [place] [address] Licensed Practical Nurse Family Medicine 12/29/22 06/09/24 Becca Campos LSW Maintenance Mgr Family Medicine 12/29/22 08/24/24 Hilary Frank, RN Licensed Practical Nurse Family Medicine 06/09/24 07/21/24 Kaylen Moore LPN 07/21/24 documented as of this encounter
--- OUTSIDE RECORDS SUMMARY | 2024-10-12 14:26 | XMS_ITS | Encounter Summary ---
Author Organization [facility] Address [address] [facility] [place] [address] Care Team Providers Care Client Manager Large Law Name Role Phone Shawn Barber MD Unavailable [phone] Shawn Barber MD Primary Care Provider [phone] Wednesday, Randee TEJEDA Unavailable [phone] Becca Campos INTERACTIVE MEDIA MARKETING DIRECTOR Unavailable [phone] Hilary Frank RN Unavailable [phone] Kaylen Moore SNUFF CONTAINER INSPECTOR Unavailable Unavailable Encounter Details Date Type Department Care Team (Late st Contact Info) Description 07/07/2023 Abstract [facility] [address] [facility] 110 [place] [id number] Shawn Barber MD 112 [facility] 110 [place] [address] Social History Tobacco Use Types [...] any clubs o r organizations such as religion groups, unions, fraternal or athletic groups, or [...] Recorded Patient Health Questionnaire-2 Score 1 11/25/2022 [facility] [place] of Occupat ional Health - Occupational Stress [...] EDT Office Visit [facility] 112 [facility] 110 [place] [address] Shawn Barber MD 112 [facility] 110 [place] [address] 10/26/2024 2:50 PM EDT Office Visit [facility] [address] [place] [address] Colt Mendieta, DPM 3006 [facility] 5 [place] [address] documented as of this encounter Visit Diagnoses Not on filedocumented in this encounter Care Teams Client Manager Large Law Relationship Specialty Start Date End Date Shawn Barber MD [address] [place] [address] PCP - ACO Reach 09/24/22 Shawn Barber MD [address] [place] [address] PCP - General Internal Medicine 10/22/22Wednesday, NIKHIL Jeff [address] [place] [address] Licensed Practical Nurse Family Medicine 12/29/22 06/09/24 Becca Campos LSW Specialty Plant Supervisor Family Medicine 12/29/22 08/24/24 Hilary Frank, RN Licensed Practical Nurse Family Medicine 06/09/24 07/21/24 Kaylen Moore LPN 07/21/24 documented as of this encounter
--- OUTSIDE RECORDS SUMMARY | 2024-10-12 14:26 | XMS_ITS | Clinical Summary ---
Author Organization [facility] Address [address] [place] [address] Care Team Providers Care Hardwood Floor Installer Name Role Phone Shawn Barber MD Primary Care Provider [phone] Allergies Active Allergy Reactions Criticality Noted Date Comments Bee Venom Protein (Honey Bee) 09/22/2022 Other reaction(s): Swelling of body region Grapefruit Unknown 09/22/2022 Lanolin 09/22/2022 Naproxen Sodium Other 10/11/2014 Pineapple Unknown 09/22/2022 Wool 09/22/2022 Medications albuterol 90 mcg/actuation inhaler Inhale 2 puffs every 4 (four) hours if needed. 2 Active ALPRAZolam (Xanax) 1 mg tablet Take 1 mg by mouth if needed in the morning, at noon, and at bedtime. 2 Active Eliquis 5 mg tablet Take 5 mg by mouth in the morning and at bedtime. 2 Active brexpiprazole (Rexulti) 1 mg tablet Take 1 tablet by mouth once daily as directed. 2 Active bumetanide (Bumex) 1 mg tablet Take 2 mg by mouth in the morning. 2 Active dulaglutide (Trulicity) 1.5 mg/0.5 mL pen injector Inject 0.5 mL every week by subcutaneous route. Active FLUoxetine (PROzac) 40 mg capsule TAKE 1 CAPSULE BY MOUTH ONCE DAILY IN THE MORNING 2 Active magnesium oxide (Mag-Ox) 400 mg (241.3 mg magnesium) tablet Take 1 tablet by mouth with breakfast and with evening meal. 2 Active metoprolol tartrate (Lopressor) 50 mg tablet in the morning and at bedtime. Active dapagliflozin (Farxiga) 10 mgIndications:C hronic diastolic heart failure with preserved ejection fraction (CMS/HCC) Take 1 tablet (10 mg) by mouth in the morning. 90 tablet 3 3 Active cholecalciferol , vitamin D3, 50 mcg (2,000 unit) capsule Take 2,000 Units by mouth in the morning. Active fluticasone propion-salmete roL (Advair Diskus) 250-50 mcg/dose diskus inhaler Inhale 1 puff every 12 (twelve) hours. Active metOLazone (Zaroxolyn) 2.5 mg tablet Take 2.5 mg by mouth in the morning. 3 Active Active Problems Problem Noted Date Diagnosed Date Acute combined systolic and diastolic CHF, NYHA class 3 11/10/2022 11/26/2022 Aortic valve disorder 11/10/2022 11/26/2022 Bilateral hearing loss 11/10/2022 3 Bilateral tinnitus 11/10/2022 11/26/2022 Diabetic renal disease 11/10/2022 3 Epilepsy, unspecified, not i ntractable, without status epilepticus 11/10/2022 11/26/2022 Hypertensive heart disease w ith congestive heart failure and chronic kidney disease 11/10/2022 11/26/2022 Obesity (BMI 30-39.9) 11/10/2022 11/26/2022 Protein calorie malnutrition 11/10/2022 Pulmonary HTN 10/27/2022 Assessment & Plan (10/27/2022 1:48 PM EDT): Repeat limited echo to assess RV function, RVSP- rt sided pressures, and noted D shaped septum on inpt echo. Urinary retention 09/22/2022 Postinfective urethral stric ture, not elsewhere classified, female 09/22/2022 Pneumaturia 09/22/2022 Asymptomatic microscopic hematuria 09/22/2022 Paroxysmal atrial fibrillation 04/17/2022 Assessment & Plan (10/27/2022 1:46 PM EDT): [id number]= 4 continue metoprolol for rate control, and eliquis anticoagulation Nonrheumatic aortic valve stenosis 04/17/2022 Benign hypertensive kidney d isease with chronic kidney disease 04/17/2022 Chronic constipation with overflow 04/13/2022 Constipation 04/13/2022 Diabetes 04/13/2022 Fatty liver 04/13/2022 Gastroparesis 04/13/2022 Dysphagia 04/13/2022 Heartburn 04/13/2022 History of colonic polyps 04/13/2022 Loose stools 04/13/2022 Lower abdominal pain 04/13/2022 Morbid obesity 04/13/2022 Muscle spasm 04/13/2022 Panic attacks 04/13/2022 Psoriatic arthritis 04/13/2022 Oxygen dependent 08/01/2021 11/26/2022 Acquired hallux valgus 01/09/2021 Peripheral venous insufficiency 01/09/2021 External hemorrhoids 12/30/2020 Severe recurrent major depre ssion without psychotic features 11/27/2020 Adrenal mass 1 cm to 4 cm in diameter with no history of malignant neoplasm 07/18/2020 Tobacco dependence 03/04/2020 Systolic murmur 03/04/2020 Decreased estrogen level 10/05/2019 Diabetic peripheral neuropat hy associated with type 2 diabetes mellitus 12/26/2018 Psoriasis 12/26/2018 Haddad's esophagus 10/19/2018 Osteoarthritis of left glenohumeral joint 2017 Acute sinusitis 08/20/2017 Osteoarthritis 08/20/2017 Gastroesophageal reflux disease 08/20/2017 Chronic obstructive lung disease 08/20/2017 Chronic diastolic congestive heart failure 08/20 Assessment & Plan (10/27/2022 4:20 PM EDT): NYHC- III- currently fluid overloaded and weight gain of 15 pounds in 2 weeks Continue GDMT- farxiga Diuretic therapy-increase bumex to 2mg in am and 1 mg in pm, repeat BMP next week Monitor daily weights, I&O, fluid restriction 1.5-2L/day, renal function and electrolytes- RTC 1month for re-evalaution Cough 08/20/2017 Depressive disorder 08/20/2017 Generalized anxiety disorder 08/20/2017 Hypertensive disorder 08/20/2017 Assessment & Plan (10/27/2022 4:21 PM EDT): Hypertension is well controlled 108/62 Continue all meds Renal function stable for her- will continue to monitor and pt states she is to start F/U with Dr Zhou in [place] for nephrology Incisional hernia 08/20/2017 Mixed hyperlipidemia 08/20/2017 Nonalcoholic fatty liver disease 08/20/2017 Obstructive sleep apnea syndrome 08/20/2017 Polyp of colon 08/20/2017 Chronic pain 06/03/2017 Adhesive capsulitis of left shoulder 05/18/2017 Osteoporosis 05/22/2016 Hyperglycemia due to type 2 diabetes mellitus Primary localized osteoarthrosis of shoulder reg ion 04/11/2015 Immunizations Immunization Administration Dates Next Due Influenza, High Dose Seasona l, Preservative Free 03/05/2021,02/09/2019,02/17/2018,01/25 Influenza, High-dose Seasona l, Quadrivalent, Preservative Free 02/05/2022,03/22/2020,03/15/2020,02/09 Influenza, Unspecified 01/31/2022,2019,03/15/2020,02/17,01/25/2017 Influenza, injectable, quadrivalent 02/19/2016 Influenza, seasonal, injectable 02/05/2014 Influenza, seasonal,quadriva lent, preservative free 01/21/2015 Pneumococcal Conjugate PCV 13 04/12/2015 Pneumococcal Polysaccharide PPV23 02/03/2016, Zoster, live 02/06/2016 Family History Medical History Relation Name Comments Heart attack Brother Heart attack Father Hypertension Mother Stroke Mother Heart attack Sister Hypertension Sister Relation Name Status Comments Brother Father Mother Sister Social History Tobacco Use Types Packs/Day Years Used Date Smoking Tobacco: Every Day Cigarettes Smokeless Tobacco: Never Tobacco Cessation:Ready to Q uit: Not Asked; Counseling Given: Not Answered Alcohol Use Standard Drinks/Week Comments Yes 0 (1 standard drink = 0.6 oz pur e alcohol) occasional [place] Safety & Environment Answer Date Rec orded Fear of Current or Ex-Partner Not on file Emotionally Abused Not on file 06/24/2023 Physically Abused Not on file 06/24/2023 Sexually Abused Not on file 06/24/2023 Physically or Sexually Abused Not on file Comments Unknown Sex and Gender Information Value Date Recorded Sex Assigned at Not on file Legal Sex Female 10:40 PM EDT Gender Identity Not on file Sexual Orientation Not on file Last Filed Vital Signs Vital Sign Reading Time Taken Comments Blood Pressure 110/72 11/27/2022 1:24 PM EDT Pulse 89 11/27/2022 1:24 PM EDT Temperature - - Respiratory Rate 12 11/27/2022 1:24 PM EDT o xygen 3liter Oxygen Saturation 90% 11/27/2022 1:24 PM EDT Inhaled Oxygen Concentration - - Weight 76.7 kg (169 lb) 09/22/2022 2:21 PM EDT Height 152.4 cm (5') 11/27/2022 1:24 PM EDT Body Mass Index 33.01 09/22/2022 2:21 PM EDT Plan of Treatment Health Maintenance Due Date Last Done Comments CT Colonography 1948 FIT-DNA 1948 FIT 1948 FOBT 1948 Medicare Annual Wellness (AWV) 1948 Sigmoidoscopy 1948 Diabetes: Retinopathy Screening 1958 Depression Screening 1960 Adult Tetanus 1970 Zoster Vaccines (1 of 2) 1998 02/06/2016 Fall Risk Screening 2013 Diabetes: Hemoglobin A1C 08/17/2023 05/18/2023 COVID-19 Vaccine ( season) 2024 Colonoscopy 02/01/2030 02/02/2020 Colorectal Cancer Screening 02/01/2030 Pneumococcal Vaccine: 50+ Years Completed 05/20/2023, 02/03/2016, 04/12/2015, Additional history exists Influenza Vaccine Completed 04/17/2024, , 02/05/2022, Additional history exists Mammogram Discontinued 06/02/2024, 04/13/2023 HIB Vaccines Aged Out No longer eligi ble based on patient's age to complete this topic HPV Vaccines Aged Out No longer eligi ble based on patient's age to complete this topic IPV Vaccines Aged Out No longer eligi ble based on patient's age to complete this topic Meningococcal B Vaccine Aged Out No l onger eligible based on patient's age to complete this topic Meningococcal Vaccine Aged Out No marky chery eligible based on patient's age to complete this topic Rotavirus Vaccines Aged Out No longer eligible based on patient's age to complete this topic Insurance MEDICARE OF [place] Care Teams Hardwood Floor Installer Relationship Specialty Start Date End Date hSawn Barber MD [address] [facility] 110 [place] [address] PCP - General 04/13/22
--- OUTSIDE RECORDS SUMMARY | 2024-10-12 14:26 | XMS_ITS | Encounter Summary ---
Author Organization [facility] Address [address] [facility] [place] [address] Care Team Providers Care Slice Cutting Machine Operator Helper Name Role Phone Shawn Barber MD Unavailable [phone] Shawn Barber MD Primary Care Provider [phone] Wednesday, Randee SEGALN Unavailable [phone] Becca Campos MUSHROOM GROWTH MEDIA MIXER Unavailable [phone] Hilary Frank RN Unavailable [phone] Kaylen Moore AGRONOMY PROFESSOR Unavailable Unavailable Encounter Details Date Type Department Care Team (Late st Contact Info) Description 07/08/2023 Abstract [facility] [address] [facility] 110 [place] [id number] Shawn Barber MD 112 [facility] 110 [place] [address] Social History Tobacco Use Types [...] attend chur ch or restoration services? Never 01/29/2023 Do you belong to [...] Recorded Patient Health Questionnaire-2 Score 1 11/25/2022 [facility] [place] of Occupat ional Health - Occupational Stress [...] [facility] 112 [facility] 110 [place] [address] Shawn Barber MD 112 [facility] 110 [place] [address] 10/26/2024 2:50 PM EDT Office Visit [facility] [address] [place] [address] Colt Mendieta, DPM 3006 [facility] 5 [place] [address] documented as of this encounter Visit Diagnoses Not on filedocumented in this encounter Care Teams Slice Cutting Machine Operator Helper Relationship Specialty Start Date End Date Shawn Barber MD [address] [place] [address] PCP - ACO Reach 09/24/22 Shawn Barber MD [address] [place] [address] PCP - General Internal Medicine 10/22/22Wednesday, NIKHIL Jeff [address] [place] [address] Licensed Practical Nurse Family Medicine 12/29/22 06/09/24 Becca Campos LSW Payroll Lead Family Medicine 12/29/22 08/24/24 Hilary Frank, RN Licensed Practical Nurse Family Medicine 06/09/24 07/21/24 Kaylen Moore LPN 07/21/24 documented as of this encounter
--- OUTSIDE RECORDS SUMMARY | 2024-10-12 14:26 | XMS_ITS | Referral Summary ---
Author Organization [facility] Address [address] [place] [address] Care Team Providers Care Field Services Analyst Name Role Phone Shawn Barber MD Primary Care Provider [phone] Allergies Active Allergy Reactions Criticality Noted Date [...] Assessment & Plan (10/27/2022 1:46 PM EDT): [id number] 4 continue metoprolol for rate control, and [...] to start F/U with Dr Zhou in [place] for nephrology Incisional hernia 08/20/2017 Mixed hyperlipidemia [...] Pneumococcal Polysaccharide PPV23 02/03/2016, Zoster, live 02/06/2016 Social History Tobacco Use Types Packs/Day Years [...] 09/22/2022 2:21 PM EDT Plan of Treatment Not on file Insurance MEDICARE Member Subscriber Plan / Payer (Ef fective 2011-Present) Name:Kate Moore Member ID:[id number] Relation to Subscriber:Self Name:Kate Moore Subscriber ID:[id number] Payer ID:[id number] Group ID:Not on file Type:Medicare Address: [facility] [address] [place]ICAID [place] Care Teams Field Services Analyst Relationship Specialty Start Date End Date Shawn Barber MD [address] [facility] 110 [place] [address] PCP - General 04/13/22
--- OUTSIDE RECORDS SUMMARY | 2024-10-12 14:26 | XMS_ITS | Encounter Summary ---
Author Organization [facility] Address [address] [facility] [place] [address] Care Team Providers Care Dairy Farm Manager Name Role Phone Shawn Barber MD Unavailable [phone] Shawn Barber MD Primary Care Provider [phone] Wednesday, Randee SEGALN Unavailable [phone] Becca Campos ENGINEERING TECHNICIAN PARKING Unavailable [phone] Hilary Frank RN Unavailable [phone] Kaylen Moore SALESPERSON SEWING MACHINES Unavailable Unavailable Encounter Details Date Type Department Care Team (Late st Contact Info) Description 11/02/2023 Abstract [facility] [address] [facility] 110 [place] [id number] Shawn Barber MD 112 [facility] 110 [place] [address] Social History Tobacco Use Types [...] often do you attend chur ch or scientologist services? Never 01/29/2023 Do you [...] 1 11/25/2022 [facility] [place] of Occupat ional Health - Occupational Stress [...] No 01/29/2023 Housing Stability Vital Sign Answer Emndez e Recorded In the last 12 months, [...] [facility] 112 [facility] 110 [place] [address] Shawn Barber MD 112 [facility] 110 [place] [address] 10/26/2024 2:50 PM EDT Office Visit [facility] [address] [place] [address] Colt Mendieta, DPM 3006 [facility] 5 [place] [address] documented as of this encounter Visit Diagnoses Not on filedocumented in this encounter Care Teams Dairy Farm Manager Relationship Specialty Start Date End Date Shawn Barber MD [address] [place] [address] PCP - ACO Reach 09/24/22 Shawn Barber MD [address] [place] [address] PCP - General Internal Medicine 10/22/22Wednesday, NIKHIL Jeff [address] [place] [address] Licensed Practical Nurse Family Medicine 12/29/22 06/09/24 Becca Campos LSW Mixer Diamond Powder Family Medicine 12/29/22 08/24/24 Hilary Frank, RN Licensed Practical Nurse Family Medicine 06/09/24 07/21/24 Kaylen Moore LPN 07/21/24 documented as of this encounter
--- OUTSIDE RECORDS SUMMARY | 2024-10-12 14:26 | XMS_ITS | Encounter Summary ---
Author Organization [facility] Address [address] [facility] [place] [address] Care Team Providers Care Key Entry Operator Name Role Phone Shawn Barber MD Unavailable [phone] Shawn Barber MD Primary Care Provider [phone] Wednesday, Randee TEJEDA Unavailable [phone] Becca Campos PHP CONSULTANT Unavailable [phone] Hilary Frank RN Unavailable [phone] Kaylen Moore SCREEN TACKER Unavailable Unavailable Encounter Details Date Type Department Care Team (Late st Contact Info) Description 07/07/2023 Abstract [facility] [address] [facility] 110 [place] [id number] Shawn Barber MD 112 [facility] 110 [place] [address] Social History Tobacco Use Types [...] Recorded Patient Health Questionnaire-2 Score 1 11/25/2022 [facility] of Occupat ional Health - Occupational Stress [...] Office Visit [facility] 112 [facility] 110 [place] [address] Shawn Barber MD 112 [facility] 110 [place] [address] 10/26/2024 2:50 PM EDT Office Visit [facility] [address] [place] [address] Colt Mendieta, DPM [address] [facility] 5 [place] [address] documented as of this encounter Visit Diagnoses Not on filedocumented in this encounter Care Teams Key Entry Operator Relationship Specialty Start Date End Date Shawn Barber MD [address] [place] [address] PCP - ACO Reach 09/24/22 Shawn Barber MD [address] [place] [address] PCP - General Internal Medicine 10/22/22Wednesday, NIKHIL Jeff [address] [place] [address] Licensed Practical Nurse Family Medicine 12/29/22 06/09/24 Becca Campos LSW Sleeve Separator Family Medicine 12/29/22 08/24/24 Hilary Frank, RN Licensed Practical Nurse Family Medicine 06/09/24 07/21/24 Kaylen Moore LPN 07/21/24 documented as of this encounter
--- OUTSIDE RECORDS SUMMARY | 2024-10-12 14:26 | XMS_ITS | Encounter Summary ---
Author Organization [facility] Address [address] [facility] [place] [address] Care Team Providers Care Regional Planner Name Role Phone Shawn Barber MD Unavailable [phone] Shawn Barber MD Primary Care Provider Wednesday, Randee SEGALN Unavailable [phone] Becca Campos VERIFYING MACHINE OPERATOR Unavailable [phone] Hilary Frank RN Unavailable [phone] Kaylen Moore DISHWASHING MACHINE REPAIRER Unavailable Unavailable Encounter Details Date Type Department Care Team (Late st Contact Info) Description 10/21/2023 Abstract [facility] [address] [facility] [address] [place] [id number] Shawn Barber MD 112 [facility] 110 [place] [address] Social History Tobacco Use Types [...] Recorded Patient Health Questionnaire-2 Score 1 11/25/2022 [facility] of Occupat ional Health - Occupational Stress [...] EDT Office Visit [facility] 112 [facility] 110 [place] [address] Shawn Barber MD 112 [facility] [address] [place] [address] 10/26/2024 2:50 PM EDT Office Visit [facility] [address] [place] [phone] Colt Mendieta, DPM [address] [facility] 5 [place] [address] documented as of this encounter Visit Diagnoses Not on filedocumented in this encounter Care Teams Regional Planner Relationship Specialty Start Date End Date Shawn Barber MD [address] [place] [address] PCP - ACO Reach 09/24/22 Shawn Barber MD [address] [place] [address] PCP - General Internal Medicine 10/22/22Wednesday, NIKHIL Jeff [address] [place] [address] Licensed Practical Nurse Family Medicine 12/29/22 06/09/24 Becca Campos LSW Grade Foreman Family Medicine 12/29/22 08/24/24 Hilary Frank, RN Licensed Practical Nurse Family Medicine 06/09/24 07/21/24 Kaylen Moore LPN 07/21/24 documented as of this encounter
--- OUTSIDE RECORDS SUMMARY | 2024-10-12 14:26 | XMS_ITS | Encounter Summary ---
Author Organization [facility] Address [address] [facility] [place] [address] Care Team Providers Care General Education Professor Name Role Phone Shawn Barber MD Unavailable Shawn Barber MD Primary Care Provider Wednesday, Randee TEJEDA Unavailable [phone] Becca Campos HARVEST CONTRACTOR Unavailable [phone] Hilary Frank RN Unavailable [phone] Kaylen Moore TIRE CURER Unavailable Unavailable Encounter Details Date Type Department Care Team (Late st Contact Info) Description 07/07/2023 Abstract [facility] [address] [facility] 110 [place] [id number] Shawn Barber MD 112 [facility] 110 [place] [address] Social History Tobacco Use Types [...] often do you attend chur ch or muslim services? Never 01/29/2023 Do you belong to [...] Questionnaire-2 Score 1 11/25/2022 [facility] of Occupat ional Health - Occupational Stress [...] EDT Office Visit [facility] 112 [facility] 110 [place] [address] Shawn Barber MD 112 [facility] 110 [place] [address] 10/26/2024 2:50 PM EDT Office Visit [facility] [address] [place] [address] Colt Mendieta, DPM [address] [facility] 5 [place] [address] documented as of this encounter Visit Diagnoses Not on filedocumented in this encounter Care Teams General Education Professor Relationship Specialty Start Date End Date Shawn Barber MD [address] [place] [address] PCP - ACO Reach 09/24/22 Shawn Barber MD [address] [place] [address] PCP - General Internal Medicine 10/22/22Wednesday, NIKHIL Jeff [address] [place] [address] Licensed Practical Nurse Family Medicine 12/29/22 06/09/24 Becca Campos LSW Mash Preparatory Operator Family Medicine 12/29/22 08/24/24 Hilary Frank, RN Licensed Practical Nurse Family Medicine 06/09/24 07/21/24 Kaylen Moore LPN 07/21/24 documented as of this encounter
[2024-10-12 14:35] LABS: Hematocrit 30.4 % (36.0-48.0); Hemoglobin 9.4 g/dL (12.0-16.0); Mean Corpuscular HGB Conc 30.9 g/dL (29.9-35.2); Mean Corpuscular Hemoglobin 30.9 pg (26.7-34.0); Mean Platelet Volume 9.2 fL (9.5-13.5); Platelet Count 242 10^3/uL (150-450); Red Blood Count 3.04 10^6/uL (4.20-5.40); White Blood Count 7.8 10^3/uL (4.0-11.0)
[2024-10-12 14:49] LABS: Protein Creatinine Ratio Urine 1.35; Total Protein Urine Random 44.7 mg/dL (<=11.9)
[2024-10-12 14:50] LABS: Bilirubin Urine NEGATIVE (NEGATIVE); Blood Urine MODERATE (NEGATIVE); Clarity Urine CLOUDY (CLEAR); Glucose Urine UA NEGATIVE (NEGATIVE); Ketones Urine NEGATIVE (NEGATIVE); Leukocyte Esterase Urine LARGE (NEGATIVE); Nitrite Urine NEGATIVE (NEGATIVE); Protein Urine TRACE mg/dL (NEG/TRACE); Specific Gravity Urine 1.015 (1.005-1.025); Urobilinogen Urine 0.2 EU/dL (0.2-1.0)
[2024-10-12 14:51] LABS: Color Urine YELLOW (YELLOW)
[2024-10-12 14:52] LABS: Albumin Level 1.9 g/dL (3.4-5.0); Anion Gap 9.4; BUN Creatinine Ratio 16.1; Calcium 9.5 mg/dL (8.5-10.1); Carbon Dioxide 35.3 mmol/L (21.0-32.0); Chloride 98 mmol/L (98-107); Estimated GFR (African America 22 (>=60 mL/min/1.73m^2); Estimated GFR (Non-African Ame 18 (>=60 mL/min/1.73m^2); Glucose 114 mg/dL (74-106); Magnesium 1.8 mg/dL (1.8-2.4); Phosphorus 4.6 mg/dL (2.6-4.7); Potassium 4.7 mmol/L (3.5-5.1); Sodium 138 mmol/L (136-145)
[2024-10-13 11:08] LABS: PTH, Intact 45 pg/mL (15-65)
== END 2024-10-12 14:14 | disposition home or self-care (01) ==
LOC: LAB 14:13
PROVIDERS: PCP Internal Medicine; Visit Provider Internal Medicine Nephrology
DX: N25.81 Secondary hyperparathyroidism of renal origin (principal); E83.42 Hypomagnesemia; N18.31 Chronic kidney disease, stage 3a; N18.9 Chronic kidney disease, unspecified; D63.1 Anemia in chronic kidney disease
CPT/HCPCS: 36415; 80069; 81003; 82570; 83735; 83970; 84156; 85027

== ENCOUNTER 2024-11-13 10:47 | Inpatient (IN) | payer MEDICARE, MEDICAID, SELFPAY ==
[2024-11-13] VITALS (41 sets, daily range): BP systolic 100–160; BP diastolic 43–100; PULSE 61–146; TEMP 36.6–36.9; O2SAT 90–98; BMI 27.3; BMI 27.9
--- NOTE | 2024-11-13 11:14 | ECG_ITS ---
[facility] Test Date: 2024-11-13 Pat Name: MARTIN HAGEN Department: Room: - Gender: Female Waitress: : 1950 Requested By: BARRY RENDON Order Number: [id number] Reading MD: SILVA LORENZANA Measurements Intervals [place] Rate: 67 P: 55 NV: 152 QRS: 42 QRSD: 90 T: 50 QT: 438 QTc: 453 Interpretive Statements 1100 Sinus rhythm 8102 Low QRS voltage in chest leads 8304 Long QTc interval 9150 abnormal ECG Compared to ECG 10/25/2023 21:15:07 Low QRS voltage now present First degree AV block no longer present Electronically Signed On 11-15-2024 13:23:23 EDT by SILVA LORENZANA
--- NOTE | 2024-11-13 11:14 | XR_ITS ---
The [place] [id number] Patient Name: MARTIN HAGEN MRN: [id number] date: 1950 Sex: F Assigned Patient Location: ER Current Patient Location: ER Accession/Order Number: [id number] Exam Date: 11/13/2024 12:25 Report Date: 11/13/2024 12:30 At the request of: VAMSI DACOSTA MD Procedure: XR chest 1V PORTABLE AP ERECT CHEST 1141 hours CLINICAL HISTORY: Shortness of breath and lower extremity swelling COMPARISON: 10/25/2023 Patient is slightly rotated. There is shallow inspiration. The heart is borderline enlarged. Aorta is mildly ectatic. There is mild interstitial prominence. There is scarring and/or atelectasis. There is minor blunting of the right costophrenic angle and minimal density at the minor fissure that could be a small amount of pleural fluid. No pneumothorax is seen. The bony structures are osteopenic. There are degenerative changes at the spine. An old proximal left humerus fracture is again noted. XR/XR chest 1V IMPRESSION: BORDERLINE CARDIOMEGALY, INTERSTITIAL CHANGES AND POSSIBLE RIGHT EFFUSION. THIS MAY BE FAILURE. CLINICAL CORRELATION IS SUGGESTED. Impression dictated by: Renetta Saunders M.D. 11/13/2024 12:30 PM Dictation Location: [place] [address] Electronically authenticated by: [id number] Y Date: 11/13/2024 12:30
--- NOTE | 2024-11-13 11:15 | ED.GENADUL1 ---
HPI HPI - General Adult General Chief complaint: Chest Pain Stated complaint: CHEST PAIN, CHF FLUID/DISCOMFORT Time Seen by Provider: 11/13/24 11:01 Source: patient Mode of arrival: ambulance Limitations: no limitations History of Present Illness HPI narrative: 73-year-old female presents to the emergency department for swelling in her ankles and some shortness of breath. She states it got this way last night and she has a history of CHF and she is worried about CHF. No fever or productive cough. Related Data Home Medications ?Medication ?Instructions ?Recorded ?Confirmed albuterol sulfate 90 mcg/actuation 2 puff inhalation Q4H PRN 10/08/22 11/13/24 aerosol inhaler (Ventolin HFA) shortness of breath or wheezing alprazolam 1 mg tablet 1 mg PO TID PRN anxiety 10/08/22 11/13/24 apixaban 5 mg tablet (Eliquis) 5 mg PO BID 10/08/22 11/13/24 brexpiprazole 1 mg tablet (Rexulti) 1 mg PO QDAY 10/08/22 11/13/24 cyclobenzaprine 10 mg tablet 10 mg PO .qhs PRN muscle spasm 10/08/22 10/25/23 dulaglutide 0.75 mg/0.5 mL 0.75 mg subcut QWEEK high blood 10/08/22 11/13/24 subcutaneous pen injector sugar (Trulicity) fluoxetine 40 mg capsule 40 mg PO DAILY 10/08/22 11/13/24 magnesium oxide 400 mg (241.3 mg 400 mg PO BID 10/08/22 11/13/24 magnesium) tablet metoprolol tartrate 50 mg tablet 50 mg PO BID 10/08/22 11/13/24 omeprazole 40 mg capsule,delayed 40 mg PO BID 10/08/22 11/13/24 release tizanidine 4 mg tablet 4 mg PO TID PRN muscle spasticity 10/08/22 11/13/24 atorvastatin 20 mg tablet (Lipitor) 20 mg PO DAILY 03/09/23 11/13/24 bumetanide 2 mg tablet 2 mg PO DAILY 03/09/23 11/13/24 dapagliflozin propanediol 10 mg 10 mg PO DAILY 03/09/23 11/13/24 tablet (Farxiga) estradiol 0.01% (0.1 mg/gram) 0.25 appful vaginal .2x a week 03/09/23 11/13/24 vaginal cream (Estrace) fluticasone 250 mcg-salmeterol 50 1 inh inhalation BID 03/09/23 11/13/24 mcg/dose blistr powdr for inhalation (Advair Diskus) lisinopril 20 mg tablet 20 mg PO DAILY 03/09/23 11/13/24 promethazine 25 mg tablet 25 mg PO Q6H PRN nausea and 03/09/23 11/13/24 vomiting levetiracetam 500 mg tablet 250 mg PO BID 05/11/23 11/13/24 (Keppra) hydrocodone 5 mg-acetaminophen 325 1 tab PO Q8H PRN pain 10/25/23 11/13/24 mg tablet pantoprazole 20 mg tablet,delayed 20 mg PO Q12H 10/25/23 11/13/24 release potassium chloride 20 mEq 20 meq PO DAILY 10/25/23 11/13/24 tablet,extended release Previous Rx's ?Medication ?Instructions ?Recorded calcium carbonate 500 mg (2.5 x 200 mg calcium (500 03/24/23 mg)) PO TID #90 tabs ferrous sulfate 325 mg (65 mg 325 mg PO BID #60 tabs 10/28/23 iron) tablet hyoscyamine sulfate 0.125 mg 0.125 mg PO Q6H PRN dyspepsia #60 10/28/23 sublingual tablet (Levsin/SL) tabs Allergies Allergy/AdvReac Type Severity Reaction Status Date / Time No Known Drug Allergies Allergy Verified 11/13/24 10:52 Opioid HPI Opioid Management Most Recent Opioid Data: Last Pain Scale 7 Today, 10:52 Last Pain Intensity 3 10/27/23, 12:06 Last ORT Total Score 0 10/25/23, 23:44 Last ORT Risk Category Low Risk 10/25/23, 23:44 Review of Systems ROS Narrative A ten point review of systems is negative except as noted above. [facility] Medical History (Updated 11/13/24 @ 14:38 by Jorge Menon MD) Hyperkalemia ?E87.5 - Hyperkalemia (ICD-10) Left lower lobe pneumonia ?J18.9 - Pneumonia, unspecified organism (ICD-10) Chronic kidney disease (CKD) ?N18.9 - Chronic kidney disease, unspecified (ICD-10) Hypocalcemia ?E83.51 - Hypocalcemia (ICD-10) Anemia ?D64.9 - Anemia, unspecified (ICD-10) COPD exacerbation ?J44.1 - Chronic obstructive pulmonary disease with (acute) exacerbation (ICD-10) Shortness of breath ?R06.02 - Shortness of breath (ICD-10) Congestive heart failure ?I50.9 - Heart failure, unspecified (ICD-10) Hyponatremia ?E87.1 - Hypo-osmolality and hyponatremia (ICD-10) Acute hypokalemia ?E87.6 - Hypokalemia (ICD-10) Closed fracture of right hip ?S72.001A - Fracture of unspecified part of neck of right femur, initial encounter for closed fracture (ICD-10) Fall ?W19.XXXA - Unspecified fall, initial encounter (ICD-10) Closed fracture of left condylar process of mandible ?S02.612A - Fracture of condylar process of left mandible, initial encounter for closed fracture (ICD-10) UTI (urinary tract infection) ?N39.0 - Urinary tract infection, site not specified (ICD-10) Hypocalcemia ?E83.51 - Hypocalcemia (ICD-10) CKD (chronic kidney disease) stage 4, GFR 15-29 ml/min ?N18.4 - Chronic kidney disease, stage 4 (severe) (ICD-10) Chronic anemia ?D64.9 - Anemia, unspecified (ICD-10) Hemorrhoids ?K64.9 - Unspecified hemorrhoids (ICD-10) Diarrhea in adult patient ?R19.7 - Diarrhea, unspecified (ICD-10) New onset seizure without head trauma ?R56.9 - Unspecified convulsions (ICD-10) Acute kidney injury superimposed on CKD ?N17.9 - Acute kidney failure, unspecified (ICD-10) ?N18.9 - Chronic kidney disease, unspecified (ICD-10) Hypokalemia ?E87.6 - Hypokalemia (ICD-10) Hypomagnesemia ?E83.42 - Hypomagnesemia (ICD-10) Generalized seizure ?R56.9 - Unspecified convulsions (ICD-10) Acute otitis externa of left ear ?H60.502 - Unspecified acute noninfective otitis externa, left ear (ICD-10) UTI (urinary tract infection) due to Enterococcus ?N39.0 - Urinary tract infection, site not specified (ICD-10) ?B95.2 - Enterococcus as the cause of diseases classified elsewhere (ICD-10) Adrenal adenoma ?D35.00 - Benign neoplasm of unspecified adrenal gland (ICD-10) (HFpEF) heart failure with preserved ejection fraction ?I50.30 - Unspecified diastolic (congestive) heart failure (ICD-10) Chronic respiratory failure with hypoxia ?J96.11 - Chronic respiratory failure with hypoxia (ICD-10) Anemia due to chronic kidney disease ?N18.9 - Chronic kidney disease, unspecified (ICD-10) ?D63.1 - Anemia in chronic kidney disease (ICD-10) Heart murmur ?R01.1 - Cardiac murmur, unspecified (ICD-10) UTI due to Klebsiella species ?N39.0 - Urinary tract infection, site not specified (ICD-10) ?B96.89 - Other specified bacterial agents as the cause of diseases classified elsewhere (ICD-10) C. difficile diarrhea ?A04.72 - Enterocolitis due to Clostridium difficile, not specified as recurrent (ICD-10) Obesity ?E66.9 - Obesity, unspecified (ICD-10) Depression ?F32.A - Depression, unspecified (ICD-10) Hypertension ?I10 - Essential (primary) hypertension (ICD-10) Atrial fibrillation ?I48.91 - Unspecified atrial fibrillation (ICD-10) CKD (chronic kidney disease) stage 3, GFR 30-59 ml/min ?N18.30 - Chronic kidney disease, stage 3 unspecified (ICD-10) Reducible umbilical hernia ?K42.9 - Umbilical hernia without obstruction or gangrene (ICD-10) Hernia of anterior abdominal wall ?K43.9 - Ventral hernia without obstruction or gangrene (ICD-10) Diabetes ?E11.9 - Type 2 diabetes mellitus without complications (ICD-10) Anemia ?D64.9 - Anemia, unspecified (ICD-10) Hypocalcemia ?E83.51 - Hypocalcemia (ICD-10) CHF (congestive heart failure) ?I50.9 - Heart failure, unspecified (ICD-10) Edema ?R60.9 - Edema, unspecified (ICD-10) CHF (congestive heart failure) ?I50.9 - Heart failure, unspecified (ICD-10) COPD (chronic obstructive pulmonary disease) ?J44.9 - Chronic obstructive pulmonary disease, unspecified (ICD-10) Surgical History History of cholecystectomy ?Z90.49 - Acquired absence of other specified parts of digestive tract (ICD-10) H/O: hysterectomy ?Z90.710 - Acquired absence of both cervix and uterus (ICD-10) Family History (Updated 10/09/22 @ 00:43 by Jennifer Trejo) Family/Other Family history of CHF (congestive heart failure) Family history of COPD (chronic obstructive pulmonary disease) Family history of hypertension Social History (Updated 10/25/23 @ 23:37 by Bella Shepard RN) Within the past year, how often did you have a drink containing alcohol: never Within the past year, how often did you have six or more drinks on one occasion: never Score interpretation: A score less than 3 is consistent with normal alcohol consumption. Smoking status: Current every day smoker Second hand tobacco smoke exposure: No Non-prescribed substance use: denies use Previous occupational history: retired Known occupational exposures/hazards: Yes Highest level of school completed/degree received: some college, no degree Are you now , , , , never or living with a partner: In a typical week, how many times do you talk on the telephone with family, friends, or neighbors: 3 or more times per week How often do you get together with friends or relatives: 3 or more times per week How often do you attend religion or shinto services: 1-3 times per year Do you belong to any clubs or organizations such as religion groups unions, fraternal or athletic groups, or school groups: no Total score: 1 Score interpretation: A score of less than or equal to 1 indicates the most socially isolated. Little interest or pleasure in doing things: not at all Feeling down, depressed, or hopeless: not at all Feel stressed/tense/nervous/anxious/difficulty sleeping: not at all Due to disability, difficulty making decisions: No Do you think of yourself as: straight/heterosexual Gender Identity: female Exam Narrative Exam Narrative: Nurses note and vital signs reviewed and patient is not hypoxic. General: The patient appears in no apparent distress. Patient is resting comfortably on cart. Skin: Warm, dry, no pallor noted. There is no rash noted. Head: Normocephalic, atraumatic Eye: Normal conjunctiva, no drainage Ears, Nose, Mouth, and Throat: oral mucosa is moist. Nares patent. Cardiovascular: Regular Rate and Rhythm Respiratory: Patient is in no distress, no accessory muscle use, lungs show a few rhonchi, no rales Back: non-tender GI: Soft and nontender Musculoskeletal: She has trace to 1+ edema in each ankle. Neurological: A&O, normal speech Psychiatric: Cooperative Constitutional Vital Signs, click to edit/add: Last Vital Signs Temp 98.1 F 11/13/24 10:52 Pulse 70 11/13/24 14:20 Resp 19 11/13/24 14:20 BP 103/43 L 11/13/24 14:00 Pulse Ox 97 11/13/24 14:20 O2 Del Method Nasal Cannula 11/13/24 11:10 O2 Flow Rate 3 11/13/24 11:10 Course Vital Signs Vital signs: Vital Signs Temperature 98.1 F 11/13/24 10:52 Pulse Rate 69 11/13/24 10:52 Respiratory Rate 20 11/13/24 10:52 Blood Pressure 114/53 11/13/24 10:52 Pulse Oximetry 94 L 11/13/24 10:52 Oxygen Delivery Method Nasal Cannula 11/13/24 10:52 Oxygen Delivery Flow Rate 3 11/13/24 10:52 Temperature 98.1 F 11/13/24 10:52 Pulse Rate 70 11/13/24 14:20 Respiratory Rate 19 11/13/24 14:20 Blood Pressure 103/43 L 11/13/24 14:00 Pulse Oximetry 97 11/13/24 14:20 Oxygen Delivery Method Nasal Cannula 11/13/24 11:10 Oxygen Delivery Flow Rate 3 11/13/24 11:10 Medical Decision Making MDM Narrative Medical decision making narrative: Workup indicates hyperkalemia with acute on chronic renal insufficiency. She was given Kayexalate as well as D50 and insulin. BUN and creatinine are elevated somewhat above her baseline. Concern also for CHF. She is also somewhat anemic and has been anemic in the past. She required a blood transfusion about a year ago and this appears to be secondary to the chronic renal insufficiency. She is being admitted after discussing the case with hospitalist. Initial troponin was 155 but the repeat is 140. Differential Diagnosis Differential Diagnosis: CHF, pneumonia, pulmonary edema, renal insufficiency Lab Data Lab results reviewed: Yes I reviewed the patient's lab results Labs: Lab Results 11/13/24 11/13/24 Range/Units 11:00 13:52 WBC 7.4 (4.0-11.0) 10^3/uL RBC 2.32 L (4.20-5.40) 10^6/uL Hgb 7.3 L (12.0-16.0) g/dL Hct 23.3 L* (36.0-48.0) % MCV 100.4 H (81.0-99.0) fL MCH 31.5 (26.7-34.0) pg MCHC 31.3 (29.9-35.2) g/dL RDW 14.8 (11.0-15.0) % Plt Count 247 (150-450) 10^3/uL MPV 9.4 L (9.5-13.5) fL Neut % (Auto) 76.6 H (43.0-75.0) % Lymph % (Auto) 16.0 L (20.5-60.0) % [place] % (Auto) 5.4 (1.7-12.0) % Eos % (Auto) 1.2 (0.9-7.0) % Baso % (Auto) 0.3 (0.2-2.0) % Neut # (Auto) 5.6 (1.4-6.5) 10^3/uL Lymph # (Auto) 1.2 (1.2-3.8) 10^3/uL [place] # (Auto) 0.4 (0.3-0.8) 10^3/uL Eos # (Auto) 0.1 (0.0-0.7) 10^3/uL Baso # (Auto) 0.0 (0.0-0.1) 10^3/uL Abs Immat Gran (auto) 0.04 H (0.00-0.03) 10^3/uL Imm/Tot Granulo (auto) 0.5 (0.0-0.5) % Sodium 135 L (136-145) mmol/L Potassium 6.2 H* (3.5-5.1) mmol/L Chloride 101 (98-107) mmol/L Carbon Dioxide 22.4 (21.0-32.0) mmol/L Anion Gap 17.8 BUN 68.0 H (7.0-18.0) mg/dL Creatinine 3.27 H (0.55-1.02) mg/dL Est GFR ( Amer) 17 L (>=60 mL/min/1.73m^2) Est GFR (Non-Af Amer) 14 L (>=60 mL/min/1.73m^2) BUN/Creatinine Ratio 20.8 Glucose 109 H (74-106) mg/dL Calcium 6.5 L (8.5-10.1) mg/dL Troponin I High Sens 155.2 H* 140.2 H* (4.0-51.3) pg/mL NT-Pro-B Natriuret Pep >95420.0 H* (<=1800.0) pg/mL Imaging Data Chest x-ray: Radiologist's impression: ITS Impressions Chest X-Ray 11/13/24 11:14 IMPRESSION: BORDERLINE CARDIOMEGALY, INTERSTITIAL CHANGES AND POSSIBLE RIGHT EFFUSION. THIS MAY BE FAILURE. CLINICAL CORRELATION IS SUGGESTED. Impression dictated by: Renetta Saunders M.D. 11/13/2024 12:30 PM Dictation Location: [place] [address] Electronically authenticated by: [id number] Y Date: 11/13/2024 12:30 ECG Data Attestation: I personally reviewed and interpreted this ECG as follows: (EKG on my interpretation shows sinus rhythm with rate of 67) Critical Care Time Critical Care Time Critical Care Time: Yes Total Critical Care Time: 35 Attestation: Due to the high probability of sudden and clinically significant deterioration in the patient's condition he/she required the highest level of my preparedness to intervene urgently I provided critical care time including documentation time, medication orders and management, reevaluation, vital sign assessment, ordering and reviewing of lab tests, ordering and reviewing of x-ray studies, and admission orders. Aggregate critical care time is 35 minutes including only time during which I was engaged in work directly related to his/her care and did not include time spent treating other patients simultaneously. Discharge Plan Discharge Chief Complaint: Chest Pain Clinical Impression: Hyperkalemia, Acute kidney injury superimposed on chronic kidney disease, Anemia Patient Disposition: Admitted As Inpatient Time of Disposition Decision: 14:38 Condition: Fair
[2024-11-13 11:19] LABS: Hemoglobin 7.3 g/dL (12.0-16.0); Immature Granulocytes Abs Auto 0.04 10^3/uL (0.00-0.03); Immature Granulocytes Pct Auto 0.5 % (0.0-0.5); Lymphocytes Absolute Auto 1.2 10^3/uL (1.2-3.8); Mean Corpuscular HGB Conc 31.3 g/dL (29.9-35.2); Mean Corpuscular Hemoglobin 31.5 pg (26.7-34.0); Mean Corpuscular Volume 100.4 fL (81.0-99.0); Platelet Count 247 10^3/uL (150-450); Red Blood Count 2.32 10^6/uL (4.20-5.40); White Blood Count 7.4 10^3/uL (4.0-11.0)
[2024-11-13 11:35] LABS: Hematocrit 23.3 % (36.0-48.0)
[2024-11-13 11:40] LABS: Anion Gap 17.8; Blood Urea Nitrogen 68.0 mg/dL (7.0-18.0); Calcium 6.5 mg/dL (8.5-10.1); Carbon Dioxide 22.4 mmol/L (21.0-32.0); Chloride 101 mmol/L (98-107); Estimated GFR (African America 17 (>=60 mL/min/1.73m^2); Estimated GFR (Non-African Ame 14 (>=60 mL/min/1.73m^2); Glucose 109 mg/dL (74-106); Sodium 135 mmol/L (136-145)
[2024-11-13 11:47] LABS: NT Pro B Type Natriuretic Pept >35000.0 pg/mL (<=1800.0)
[2024-11-13 11:48] LABS: Potassium 6.2 mmol/L (3.5-5.1)
[2024-11-13] MEDS: DEXTROSE 50 %-WATER 25 GM/50 ML SYRINGE IV (12:37)
[2024-11-13] MEDS: INSULIN REGULAR, HUMAN (100 UNIT/ML) 10 ML MDV 10 UNIT IV (12:37)
[2024-11-13] MEDS: SODIUM POLYSTYRENE SULFON 15 GM/60 ML ORAL.SUSP KAYEXALATE 30 GM PO (14:18)
[2024-11-13] MEDS: ALBUMIN HUMAN 25 GM/100 ML PREMIX IV (16:28)
[2024-11-13] MEDS: CALCIUM GLUC IN NACL, ISO-OSM 1 GM/50 ML PLAST..BAG IV (17:27)
[2024-11-13 18:20] LABS: Hemoglobin 6.8 g/dL (12.0-16.0)
[2024-11-13 18:21] LABS: Hematocrit 22.1 % (36.0-48.0)
[2024-11-13 18:43] LABS: Potassium 5.0 mmol/L (3.5-5.1)
--- NOTE | 2024-11-13 19:44 | P.CACN_ITS ---
History of Present Illness History of Present Illness Consult reason: congestive heart failure Chief complaint: HYPERKALEMIA ELI ANEMIA Narrative: Kate Moore is a 73 yo female with significant medical history of HFpEF, COPD, current smoker, paroxysmal a.fib (on eliquis), DM, CKD, pulmonary HTN, aortic stenosis who presented to the ER with c/o LE swelling and SOB. Labs revealed ProBNP >35k and hemoglobin of 6.8. Cardiology was consulted for acute HFpEF. Review of Systems ROS Status of ROS 10 or more systems reviewed and unremark able except as noted in history and below Cardiovascular Reports: edema, swelling of feet/ankles, shortness of breath with exertion and shortness of breath when lying down [facility] Medical History (Updated 11/13/24 @ 14:38 by Jorge Menon MD) Hyperkalemia ?E87.5 - Hyperkalemia (ICD-10) Left lower lobe pneumonia ?J18.9 - Pneumonia, unspecified organism (ICD-10) Chronic kidney disease (CKD) ?N18.9 - Chronic kidney disease, unspecified (ICD-10) Hypocalcemia ?E83.51 - Hypocalcemia (ICD-10) Anemia ?D64.9 - Anemia, unspecified (ICD-10) COPD exacerbation ?J44.1 - Chronic obstructive pulmonary disease with (acute) exacerbation (ICD-10) Shortness of breath ?R06.02 - Shortness of breath (ICD-10) Congestive heart failure ?I50.9 - Heart failure, unspecified (ICD-10) Hyponatremia ?E87.1 - Hypo-osmolality and hyponatremia (ICD-10) Acute hypokalemia ?E87.6 - Hypokalemia (ICD-10) Closed fracture of right hip ?S72.001A - Fracture of unspecified part of neck of right femur, initial encounter for closed fracture (ICD-10) Fall ?W19.XXXA - Unspecified fall, initial encounter (ICD-10) Closed fracture of left condylar process of mandible ?S02.612A - Fracture of condylar process of left mandible, initial encounter for closed fracture (ICD-10) UTI (urinary tract infection) ?N39.0 - Urinary tract infection, site not specified (ICD-10) Hypocalcemia ?E83.51 - Hypocalcemia (ICD-10) CKD (chronic kidney disease) stage 4, GFR 15-29 ml/min ?N18.4 - Chronic kidney disease, stage 4 (severe) (ICD-10) Chronic anemia ?D64.9 - Anemia, unspecified (ICD-10) Hemorrhoids ?K64.9 - Unspecified hemorrhoids (ICD-10) Diarrhea in adult patient ?R19.7 - Diarrhea, unspecified (ICD-10) New onset seizure without head trauma ?R56.9 - Unspecified convulsions (ICD-10) Acute kidney injury superimposed on CKD ?N17.9 - Acute kidney failure, unspecified (ICD-10) ?N18.9 - Chronic kidney disease, unspecified (ICD-10) Hypokalemia ?E87.6 - Hypokalemia (ICD-10) Hypomagnesemia ?E83.42 - Hypomagnesemia (ICD-10) Generalized seizure ?R56.9 - Unspecified convulsions (ICD-10) Acute otitis externa of left ear ?H60.502 - Unspecified acute noninfective otitis externa, left ear (ICD-10) UTI (urinary tract infection) due to Enterococcus ?N39.0 - Urinary tract infection, site not specified (ICD-10) ?B95.2 - Enterococcus as the cause of diseases classified elsewhere (ICD-10) Adrenal adenoma ?D35.00 - Benign neoplasm of unspecified adrenal gland (ICD-10) (HFpEF) heart failure with preserved ejection fraction ?I50.30 - Unspecified diastolic (congestive) heart failure (ICD-10) Chronic respiratory failure with hypoxia ?J96.11 - Chronic respiratory failure with hypoxia (ICD-10) Anemia due to chronic kidney disease ?N18.9 - Chronic kidney disease, unspecified (ICD-10) ?D63.1 - Anemia in chronic kidney disease (ICD-10) Heart murmur ?R01.1 - Cardiac murmur, unspecified (ICD-10) UTI due to Klebsiella species ?N39.0 - Urinary tract infection, site not specified (ICD-10) ?B96.89 - Other specified bacterial agents as the cause of diseases classified elsewhere (ICD-10) C. difficile diarrhea ?A04.72 - Enterocolitis due to Clostridium difficile, not specified as recurrent (ICD-10) Obesity ?E66.9 - Obesity, unspecified (ICD-10) Depression ?F32.A - Depression, unspecified (ICD-10) Hypertension ?I10 - Essential (primary) hypertension (ICD-10) Atrial fibrillation ?I48.91 - Unspecified atrial fibrillation (ICD-10) CKD (chronic kidney disease) stage 3, GFR 30-59 ml/min ?N18.30 - Chronic kidney disease, stage 3 unspecified (ICD-10) Reducible umbilical hernia ?K42.9 - Umbilical hernia without obstruction or gangrene (ICD-10) Hernia of anterior abdominal wall ?K43.9 - Ventral hernia without obstruction or gangrene (ICD-10) Diabetes ?E11.9 - Type 2 diabetes mellitus without complications (ICD-10) Anemia ?D64.9 - Anemia, unspecified (ICD-10) Hypocalcemia ?E83.51 - Hypocalcemia (ICD-10) CHF (congestive heart failure) ?I50.9 - Heart failure, unspecified (ICD-10) Edema ?R60.9 - Edema, unspecified (ICD-10) CHF (congestive heart failure) ?I50.9 - Heart failure, unspecified (ICD-10) COPD (chronic obstructive pulmonary disease) ?J44.9 - Chronic obstructive pulmonary disease, unspecified (ICD-10) Surgical History History of cholecystectomy ?Z90.49 - Acquired absence of other specified parts of digestive tract (ICD- 10) H/O: hysterectomy ?Z90.710 - Acquired absence of both cervix and uterus (ICD-10) Family History (Updated 10/09/22 @ 00:43 by Jennifer Trejo) Family/Other Family history of CHF (congestive heart failure) Family history of COPD (chronic obstructive pulmonary disease) Family history of hypertension Social History (Updated 10/25/23 @ 23:37 by Bella Shepard RN) Within the past year, how often did you have a drink containing alcohol: never Within the past year, how often did you have six or more drinks on one occasion: never Score interpretation: A score less than 3 is consistent with normal alcohol consumption. Smoking status: Current every day smoker Second hand tobacco smoke exposure: No Non-prescribed substance use: denies use Previous occupational history: retired Known occupational exposures/hazards: Yes Highest level of school completed/degree received: high school graduate Are you now , , , , never or living with a partner: In a typical week, how many times do you talk on the telephone with family, friends, or neighbors: 3 or more times per week How often do you get together with friends or relatives: 3 or more times per week How often do you attend nondenominational or sabianism services: 1-3 times per year Do you belong to any clubs or organizations such as nondenominational groups unions, [employer] or athletic groups, or school groups: no Total score: 1 Score interpretation: A score of less than or equal to 1 indicates the most socially isolated. Little interest or pleasure in doing things: not at all Feeling down, depressed, or hopeless: not at all Feel stressed/tense/nervous/anxious/difficulty sleeping: not at all Due to disability, difficulty making decisions: No Do you think of yourself as: straight/heterosexual Gender Identity: female Meds Home Medications and Allergies Home Medications ?Medication ?Instructions ?Recorded ?Confirmed ?Type albuterol sulfate 90 mcg/actuation 2 puff inhalation Q 4H PRN 10/08/22 11/13/24 History aerosol inhaler (Ventolin HFA) shortness of breath or wheezing alprazolam 1 mg tablet 1 mg PO TID PRN anxiety 12/2311/13/24 History brexpiprazole 1 mg tablet (Rexulti) 1 mg PO QDAY 10/0811/13/24 History dulaglutide 0.75 mg/0.5 mL 0.75 mg subcut QWEEK high b lood 10/08/22 11/13/24 History subcutaneous pen injector sugar (Trulicity) fluoxetine 40 mg capsule 40 mg PO DAILY 10/08/2210/31 History magnesium oxide 400 mg (241.3 mg 400 mg PO BID 3 11/13/24 History magnesium) tablet metoprolol tartrate 50 mg tablet 50 mg PO BID 10/08/22 11/13/24 History tizanidine 4 mg tablet 4 mg PO TID PRN muscle spast icity 10/08/22 11/13/24 History atorvastatin 20 mg tablet (Lipitor) 20 mg PO DAILY 11/2211/13/24 History bumetanide 2 mg tablet 2 mg PO DAILY 03/09/2311/13 History dapagliflozin propanediol 10 mg 10 mg PO DAILY 3 11/13/24 History tablet (Farxiga) estradiol 0.01% (0.1 mg/gram) 0.25 appful vaginal .2x a week 03/09/23 11/13/24 History vaginal cream (Estrace) fluticasone 250 mcg-salmeterol 50 1 inh inhalation BID 03/09/23 11/13/24 History mcg/dose blistr powdr for inhalation (Advair Diskus) lisinopril 20 mg tablet 20 mg PO DAILY 03/09/2310/31 History calcium carbonate 500 mg (2.5 x 200 mg calcium (500 03/24/23 11/13/24 Rx mg)) PO TID #90 tabs levetiracetam 500 mg tablet 250 mg PO BID 05/11/23 History (Keppra) pantoprazole 20 mg tablet,delayed 20 mg PO Q12H 11/13/24 History release potassium chloride 20 mEq 20 meq PO DAILY 10/25/23 History tablet,extended release ferrous sulfate 325 mg (65 mg 325 mg PO BID #60 tabs 0 10/28/23 11/13/24 Rx iron) tablet apixaban 2.5 mg tablet (Eliquis) 2.5 mg PO BID 5 11/13/24 History Allergies Allergy/AdvReac Type Severity Reaction Status Date / Time No Known Drug Allergies Allergy Verified 11/13/24 10:52 Exam Constitutional Vital Signs, click to edit/add: Last Vital Signs Temp 98.3 F 11/13/24 15:11 Pulse 76 11/13/24 17:52 Resp 18 11/13/24 15:11 BP 109/63 11/13/24 15:11 Pulse Ox 97 11/13/24 15:11 O2 Del Method Nasal Cannula 11/13/24 15:11 O2 Flow Rate 3 11/13/24 15:11 Cardio Common normals: regular rhythm Rate: regular rate Rhythm: regular rhythm Peripheral pulses: pulses 2+ throughout Results Labs and Meds Lab results: CBC 11/13/24 11/13/24 Range/Units 11:00 18:12 WBC 7.4 (4.0-11.0) 10^3/uL RBC 2.32 L (4.20-5.40) 10^6/uL Hgb 7.3 L 6.8 L* (12.0-16.0) g/dL Hct 23.3 L* 22.1 L* (36.0-48.0) % Plt Count 247 (150-450) 10^3/uL Neut # (Auto) 5.6 (1.4-6.5) 10^3/uL Lymph # (Auto) 1.2 (1.2-3.8) 10^3/uL [place] # (Auto) 0.4 (0.3-0.8) 10^3/uL Eos # (Auto) 0.1 (0.0-0.7) 10^3/uL Baso # (Auto) 0.0 (0.0-0.1) 10^3/uL Comprehensive Metabolic Panel 11/13/24 11/13/24 Range/Units 11:00 18:12 Sodium 135 L (136-145) mmol/L Potassium 6.2 H* 5.0 (3.5-5.1) mmol/L Chloride 101 (98-107) mmol/L Carbon Dioxide 22.4 (21.0-32.0) mmol/L BUN 68.0 H (7.0-18.0) mg/dL Creatinine 3.27 H (0.55-1.02) mg/dL Glucose 109 H (74-106) mg/dL Calcium 6.5 L (8.5-10.1) mg/dL Intake and Output 11/13/24 11/13/24 11/13/24 07:59 15:59 23:59 Intake Total 150 / 150 Balance 150 / 150 Intake: IV 150 / 150 Albumin Human 25 gm In 100 ml @ 100 / 100 100 mls/hr IV ONCE ONE Rx#: [id number] Calcium Gluc in NaCl, Iso-Osm 1 50 / 50 gm In 50 ml @ 100 mls/hr IV ONCE ONE Rx#:[id number] Other: # Incontinent Bowel Movements 1 Weight 64.9 kg Patient Weight 11/14/24 07:59 Weight 64.9 kg Assessment and Plan Assessment and Plan Plan #Acute on chronic HFpEF #Pulmonary Hypertension #Shortness of Breath Exam notable for volume overload ProBNP >35,000 Hold GDMT due to ELI on CKD ? Repeat TTE ? Initiate Bumex drip ? Monitor renal function and electrolytes closely ? Daily weights and strict intake/output monitoring #Elevated Troponin Likely Type II CT in the setting of acute decompensated HFpEF and acute anemia Troponin trended from 155 --> 140 ? No indication for ischemic workup at this time #ELI on CKD #Hyperkalemia Creatinine trend: 3.27 (10/1424), 2.61 (10/12/24), 2.7 (06/05/24), 2.5 (04/04/24) Initial potassium 6.2 --> improved to 5.0 after insulin/dextrose and kayexalate ? Recommend nephrology consultation ? Monitor renal function and electrolytes closely #Acute on Chronic Anemia Hemoglobin 6.8 GI consult? ? Hold Eliquis ? Transfuse PRBC #Paroxysmal Atrial Fibrillation [id number] = 4 (age, sex, HTN, HF) Patient in RRR on exam ? Hold Eliquis temporarily due to anemia ? Continue metoprolol 50 mg BID ? Consider LAAO (Watchman) in outpatient setting #Aortic Stenosis Moderate TTE (06/19/2024): Moderate , EF 65?70%, JUDITH 1.0 cm?, mean gradient 28 mmHg, peak velocity 3.75 m/s ? Repeat TTE Fabian Shipman [facility] Cardiovascular Medicine
[2024-11-13] MEDS: BUDESONIDE 0.5 MG/2 ML AMPULE NEB IH (20:27)
[2024-11-13] MEDS: ALBUTEROL SULFATE 2.5 MG/3 ML VIAL NEB IH (20:27)
[2024-11-13] MEDS: METOPROLOL TARTRATE 25 MG TABLET 12.5 MG PO (20:42)
[2024-11-13] MEDS: PANTOPRAZOLE SODIUM 40 MG VIAL IV (20:42)
[2024-11-13] MEDS: FERROUS SULFATE 325 MG TABLET PO (20:42)
[2024-11-13] MEDS: LEVETIRACETAM 250 MG TABLET PO (20:42)
[2024-11-13] MEDS: ALPRAZOLAM 1 MG TABLET 0.5 MG PO (20:49)
[2024-11-13] MEDS: FUROSEMIDE 40 MG/4 ML VIAL IVP (22:17)
[2024-11-14] VITALS (53 sets, daily range): BP systolic 111–128; BP diastolic 54–87; PULSE 63–87; TEMP 36.6–37.1; O2SAT 79–100
[2024-11-14] MEDS: ALBUTEROL SULFATE 2.5 MG/3 ML VIAL NEB IH ×2 (05:06→10:33)
[2024-11-14 05:29] LABS: Hematocrit 31.3 % (36.0-48.0); Hemoglobin 10.1 g/dL (12.0-16.0); Mean Corpuscular HGB Conc 32.3 g/dL (29.9-35.2); Mean Corpuscular Hemoglobin 31.8 pg (26.7-34.0); Mean Corpuscular Volume 98.4 fL (81.0-99.0); Platelet Count 195 10^3/uL (150-450); Red Blood Count 3.18 10^6/uL (4.20-5.40); White Blood Count 9.2 10^3/uL (4.0-11.0)
[2024-11-14 05:55] LABS: Iron 151.0 ug/dL (50.0-170.0); Percent Iron Saturation 85.3 %; Total Iron Binding Capacity 177.0 ug/dL (250.0-450.0)
[2024-11-14 06:05] LABS: Alanine Aminotransferase 21 U/L (14-59); Albumin Globulin Ratio 0.6; Albumin Level 2.4 g/dL (3.4-5.0); Alkaline Phosphatase 79 U/L (46-116); Anion Gap 19.4; Aspartate Amino Transferase 21 U/L (15-37); Blood Urea Nitrogen 63.0 mg/dL (7.0-18.0); Calcium 6.5 mg/dL (8.5-10.1); Carbon Dioxide 22.3 mmol/L (21.0-32.0); Chloride 105 mmol/L (98-107); Estimated GFR (African America 18 (>=60 mL/min/1.73m^2); Estimated GFR (Non-African Ame 15 (>=60 mL/min/1.73m^2); Globulin 3.9 g/dL; Glucose 106 mg/dL (74-106); Potassium 4.7 mmol/L (3.5-5.1); Sodium 142 mmol/L (136-145); Thyroid Stimulating Hormone 0.893 uIU/mL (0.358-3.740); Total Protein 6.3 g/dL (6.4-8.2)
--- NOTE | 2024-11-14 08:00 | ECG_ITS ---
[facility] Test Date: 2024-11-14 Pat Name: MARTIN HAGEN Department: Room: 223 Gender: Female Risk Adjustment Specialist: : [id number] Requested By: [id number] Order Number: [id number] Reading MD: SILVA LORENZANA Measurements Intervals [place] Rate: 74 P: 90 NV: 146 QRS: 78 QRSD: 80 T: 71 QT: 434 QTc: 462 Interpretive Statements 1100 Sinus rhythm 2420 RSR (QR) in lead V1/V2, consistent with right ventricular conduction delay 8304 Long QTc interval 9150 abnormal ECG Compared to ECG 11/13/2024 10:55:12 No significant changes Electronically Signed On 11-15-2024 13:32:40 EDT by SILVA LORENZANA
--- NOTE | 2024-11-14 08:04 | US_ITS ---
The [address] [address] Patient Name: MARTIN HAGEN MRN: [id number] date: 1950 Sex: F Assigned Patient Location: [place] Current Patient Location: [place] Accession/Order Number: [id number] Exam Date: 11/14/2024 14:53 Report Date: 11/14/2024 14:58 At the request of: LEYLA RICE MD Procedure: US renal BI Bilateral Renal Ultrasound HISTORY: Acute kidney injury COMPARISON: None RIGHT kidney measures 8.1 cm. Region of edema inferior medial portion to the right kidney. Nonspecific likely related to minimal ascites. Minimal ascites but the spleen. LEFT kidney measures 9.8 cm. Hydronephrosis: None RENAL STONE: No shadowing renal calculus is seen. RENAL LESIONS: Small left anechoic renal cyst. A concern for right adrenal lesion measuring up to 4.5 cm. URINARY BLADDER: Unremarkable REPRODUCTIVE STRUCTURES Not assessed IMPRESSION : No hydronephrosis. Concern for 4.5 cm right adrenal lesion. Prior CT of abdomen and pelvis 05/05/2022 demonstrates 4.3 cm right adrenal mass. Likely represents stable finding. Impression dictated by: Gato Fong M.D. 11/14/2024 2:58 PM Dictation Location: [place] [address] Electronically authenticated by: [id number] Y Date: 11/14/2024 14:58
[2024-11-14] MEDS: METOPROLOL TARTRATE 25 MG TABLET 12.5 MG PO ×2 (08:11→21:01)
[2024-11-14] MEDS: LEVETIRACETAM 250 MG TABLET PO ×2 (08:11→21:01)
[2024-11-14] MEDS: FLUOXETINE HCL 20 MG CAPSULE 40 MG PO (08:11)
[2024-11-14] MEDS: ATORVASTATIN CALCIUM 20 MG TABLET PO (08:11)
[2024-11-14] MEDS: PANTOPRAZOLE SODIUM 40 MG VIAL IV ×2 (08:11→21:01)
[2024-11-14] MEDS: FERROUS SULFATE 325 MG TABLET PO ×2 (08:11→21:01)
--- NOTE | 2024-11-14 09:30 | CM.NOTE ---
Rounds made with Dr. Smith, discussed with pt reason for admission and plan of care. Pt does have home oxygen @3L [place] and has had [facility] in the past.
[2024-11-14 09:34] LABS: Glucose Urine UA NEGATIVE (NEGATIVE)
[2024-11-14 09:43] LABS: Cast Seen? NONE SEEN #/LPF (NONE SEEN); Crystals Seen? Seen #/HPF (None Seen)
[2024-11-14 09:44] LABS: Urine Culture Indicated YES-FRMC
[2024-11-14] MEDS: BUDESONIDE 0.5 MG/2 ML AMPULE NEB IH ×2 (10:33→20:23)
--- NOTE | 2024-11-14 11:13 | SWNOTE1 ---
Case management received call from Molly at [facility], [facility] field care manager, she left message. ADINA called her back and left voicemail that pt was admitted and her diagnosis and unsure of dc plan at this time. ADINA requested Molly call her back to let us know what services pt is getting.
--- NOTE | 2024-11-14 12:11 | SWNOTE1 ---
I met with pt in room to discuss potential d/c needs. Pt was up in chair eating lunch. Pt is from home. She lives with 2 daughters and 1 niece who help take care of her. Pt uses a walker. Pt voices she does not drive anymore, her daughter drives her when needed. I asked pt if she has services coming into home. Pt voiced yes, she has [facility] currently. Pt voiced she also receives meal deliveries a few times a week. I asked pt if she has any concerns for when she goes home. Pt voiced no concerns at this time. SW and I to follow as needed.
--- NOTE | 2024-11-14 13:00 | PM.HP ---
HPI H&P: HPI History of Present Illness Chief complaint: HYPERKALEMIA ELI ANEMIA Narrative: Mrs. Moore is a 73-year-old female who came in with shortness of breath. She was found to have acute on chronic kidney failure, anemia, hyperkalemia. Cough and congestion. No fever or chills. No abdominal pain, nausea or vomiting. Opioid HPI Opioid Management Most Recent Pain and Opioid Data: Last Pain Scale 7 11/13/24, 10:52 Last Pain Intensity 3 10/27/23, 12:06 Last Pain Assessment 11/13/24, 17:00 Last ORT Total Score 0 11/13/24, 15:11 Last ORT Risk Category Low Risk 11/13/24, 15:11 Review of Systems ROS Status of ROS 10 or more systems reviewed and unremarkable except as noted in history and below [facility] Medical History (Updated 11/14/24 @ 13:02 by Aby Smith MD) Hyperkalemia ?E87.5 - Hyperkalemia (ICD-10) Left lower lobe pneumonia ?J18.9 - Pneumonia, unspecified organism (ICD-10) Chronic kidney disease (CKD) ?N18.9 - Chronic kidney disease, unspecified (ICD-10) Hypocalcemia ?E83.51 - Hypocalcemia (ICD-10) Anemia ?D64.9 - Anemia, unspecified (ICD-10) COPD exacerbation ?J44.1 - Chronic obstructive pulmonary disease with (acute) exacerbation (ICD-10) Shortness of breath ?R06.02 - Shortness of breath (ICD-10) Congestive heart failure ?I50.9 - Heart failure, unspecified (ICD-10) Hyponatremia ?E87.1 - Hypo-osmolality and hyponatremia (ICD-10) Acute hypokalemia ?E87.6 - Hypokalemia (ICD-10) Closed fracture of right hip ?S72.001A - Fracture of unspecified part of neck of right femur, initial encounter for closed fracture (ICD-10) Fall ?W19.XXXA - Unspecified fall, initial encounter (ICD-10) Closed fracture of left condylar process of mandible ?S02.612A - Fracture of condylar process of left mandible, initial encounter for closed fracture (ICD-10) UTI (urinary tract infection) ?N39.0 - Urinary tract infection, site not specified (ICD-10) Hypocalcemia ?E83.51 - Hypocalcemia (ICD-10) CKD (chronic kidney disease) stage 4, GFR 15-29 ml/min ?N18.4 - Chronic kidney disease, stage 4 (severe) (ICD-10) Chronic anemia ?D64.9 - Anemia, unspecified (ICD-10) Hemorrhoids ?K64.9 - Unspecified hemorrhoids (ICD-10) Diarrhea in adult patient ?R19.7 - Diarrhea, unspecified (ICD-10) New onset seizure without head trauma ?R56.9 - Unspecified convulsions (ICD-10) Acute kidney injury superimposed on CKD ?N17.9 - Acute kidney failure, unspecified (ICD-10) ?N18.9 - Chronic kidney disease, unspecified (ICD-10) Hypokalemia ?E87.6 - Hypokalemia (ICD-10) Hypomagnesemia ?E83.42 - Hypomagnesemia (ICD-10) Generalized seizure ?R56.9 - Unspecified convulsions (ICD-10) Acute otitis externa of left ear ?H60.502 - Unspecified acute noninfective otitis externa, left ear (ICD-10) Adrenal adenoma ?D35.00 - Benign neoplasm of unspecified adrenal gland (ICD-10) (HFpEF) heart failure with preserved ejection fraction ?I50.30 - Unspecified diastolic (congestive) heart failure (ICD-10) Chronic respiratory failure with hypoxia ?J96.11 - Chronic respiratory failure with hypoxia (ICD-10) Anemia due to chronic kidney disease ?N18.9 - Chronic kidney disease, unspecified (ICD-10) ?D63.1 - Anemia in chronic kidney disease (ICD-10) Heart murmur ?R01.1 - Cardiac murmur, unspecified (ICD-10) UTI due to Klebsiella species ?N39.0 - Urinary tract infection, site not specified (ICD-10) ?B96.89 - Other specified bacterial agents as the cause of diseases classified elsewhere (ICD-10) C. difficile diarrhea ?A04.72 - Enterocolitis due to Clostridium difficile, not specified as recurrent (ICD-10) Obesity ?E66.9 - Obesity, unspecified (ICD-10) Depression ?F32.A - Depression, unspecified (ICD-10) Hypertension ?I10 - Essential (primary) hypertension (ICD-10) Atrial fibrillation ?I48.91 - Unspecified atrial fibrillation (ICD-10) CKD (chronic kidney disease) stage 3, GFR 30-59 ml/min ?N18.30 - Chronic kidney disease, stage 3 unspecified (ICD-10) Reducible umbilical hernia ?K42.9 - Umbilical hernia without obstruction or gangrene (ICD-10) Hernia of anterior abdominal wall ?K43.9 - Ventral hernia without obstruction or gangrene (ICD-10) Diabetes ?E11.9 - Type 2 diabetes mellitus without complications (ICD-10) Anemia ?D64.9 - Anemia, unspecified (ICD-10) Hypocalcemia ?E83.51 - Hypocalcemia (ICD-10) CHF (congestive heart failure) ?I50.9 - Heart failure, unspecified (ICD-10) Edema ?R60.9 - Edema, unspecified (ICD-10) CHF (congestive heart failure) ?I50.9 - Heart failure, unspecified (ICD-10) COPD (chronic obstructive pulmonary disease) ?J44.9 - Chronic obstructive pulmonary disease, unspecified (ICD-10) Surgical History History of cholecystectomy ?Z90.49 - Acquired absence of other specified parts of digestive tract (ICD-10) H/O: hysterectomy ?Z90.710 - Acquired absence of both cervix and uterus (ICD-10) Family History (Updated 10/09/22 @ 00:43 by Jennifer Trejo) Family/Other Family history of CHF (congestive heart failure) Family history of COPD (chronic obstructive pulmonary disease) Family history of hypertension Social History (Updated 10/25/23 @ 23:37 by Bella Shepard RN) Within the past year, how often did you have a drink containing alcohol: never Within the past year, how often did you have six or more drinks on one occasion: never Score interpretation: A score less than 3 is consistent with normal alcohol consumption. Smoking status: Current every day smoker Second hand tobacco smoke exposure: No Non-prescribed substance use: denies use Previous occupational history: retired Known occupational exposures/hazards: Yes Highest level of school completed/degree received: high school graduate Are you now , , , , never or living with a partner: In a typical week, how many times do you talk on the telephone with family, friends, or neighbors: 3 or more times per week How often do you get together with friends or relatives: 3 or more times per week How often do you attend catholic or faith services: 1-3 times per year Do you belong to any clubs or organizations such as catholic groups unions, fraternal or athletic groups, or school groups: no Total score: 1 Score interpretation: A score of less than or equal to 1 indicates the most socially isolated. Little interest or pleasure in doing things: not at all Feeling down, depressed, or hopeless: not at all Feel stressed/tense/nervous/anxious/difficulty sleeping: not at all Due to disability, difficulty making decisions: No Do you think of yourself as: straight/heterosexual Gender Identity: female Meds Home Medications and Allergies Home Medications ?Medication ?Instructions ?Recorded ?Confirmed ?Type albuterol sulfate 90 mcg/actuation 2 puff inhalation Q4H PRN 10/08/22 11/13/24 History aerosol inhaler (Ventolin HFA) shortness of breath or wheezing alprazolam 1 mg tablet 1 mg PO TID PRN anxiety 10/08/22 11/13/24 History brexpiprazole 1 mg tablet (Rexulti) 1 mg PO QDAY 10/08/22 11/13/24 History dulaglutide 0.75 mg/0.5 mL 0.75 mg subcut QWEEK high blood 10/08/22 11/13/24 History subcutaneous pen injector sugar (Trulicity) fluoxetine 40 mg capsule 40 mg PO DAILY 10/08/22 11/13/24 History magnesium oxide 400 mg (241.3 mg 400 mg PO BID 10/08/22 11/13/24 History magnesium) tablet metoprolol tartrate 50 mg tablet 50 mg PO BID 10/08/22 11/13/24 History tizanidine 4 mg tablet 4 mg PO TID PRN muscle spasticity 10/08/22 11/13/24 History atorvastatin 20 mg tablet (Lipitor) 20 mg PO DAILY 03/09/23 11/13/24 History bumetanide 2 mg tablet 2 mg PO DAILY 03/09/23 11/13/24 History dapagliflozin propanediol 10 mg 10 mg PO DAILY 03/09/23 11/13/24 History tablet (Farxiga) estradiol 0.01% (0.1 mg/gram) 0.25 appful vaginal .2x a week 03/09/23 11/13/24 History vaginal cream (Estrace) fluticasone 250 mcg-salmeterol 50 1 inh inhalation BID 03/09/23 11/13/24 History mcg/dose blistr powdr for inhalation (Advair Diskus) lisinopril 20 mg tablet 20 mg PO DAILY 03/09/23 11/13/24 History calcium carbonate 500 mg (2.5 x 200 mg calcium (500 03/24/23 11/13/24 Rx mg)) PO TID #90 tabs levetiracetam 500 mg tablet 250 mg PO BID 05/11/23 11/13/24 History (Keppra) pantoprazole 20 mg tablet,delayed 20 mg PO Q12H 10/25/23 11/13/24 History release potassium chloride 20 mEq 20 meq PO DAILY 10/25/23 11/13/24 History tablet,extended release ferrous sulfate 325 mg (65 mg 325 mg PO BID #60 tabs 10/28/23 11/13/24 Rx iron) tablet apixaban 2.5 mg tablet (Eliquis) 2.5 mg PO BID 11/13/24 11/13/24 History Allergies Allergy/AdvReac Type Severity Reaction Status Date / Time No Known Drug Allergies Allergy Verified 11/13/24 10:52 Exam Narrative Exam Narrative: [pt is awake and alert. oriented to place, time and person, mildly tachypneic. Respirate is about 20. Cachectic and frail in appearance. HEENT: [place] conjunctiva and NL buccal mucosa bilateral temporal wasting. Neck: Supple, no tenderness Endocrine: No Thyromegaly. Vascular: No JVD or carotid bruit. Lymphatic: No cervical lymphadenopathy. Chest: CTA no DTP. Diminished breath sound. Heart RRR, no extra sound or murmur. Abd: Soft, no tenderness, no rebound and no rigidity. Increase abd girth therefore clinically I could not exclude the possibility of intra abd mass or organomegaly. LE: No cyanosis or clubbing, no varices or edema. Lower extremities muscle wasting and atrophy. Neuro: A A O. Nl speech, comprehension and attention. Nl and symetrical motor and tone examination through out. []] Constitutional Vital Signs, click to edit/add: Last Vital Signs Temp 98.0 F 11/14/24 07:26 Pulse 68 11/14/24 12:00 Resp 29 H 11/14/24 11:20 BP 128/68 11/14/24 11:20 Pulse Ox 95 11/14/24 11:10 O2 Del Method Nasal Cannula 11/14/24 10:35 O2 Flow Rate 3 11/14/24 10:35 Results Labs Labs: Short CBC 11/13/24 11/14/24 Range/Units 18:12 05:02 WBC 9.2 (4.0-11.0) 10^3/uL Hgb 6.8 L* 10.1 L (12.0-16.0) g/dL Hct 22.1 L* 31.3 L (36.0-48.0) % Plt Count 195 (150-450) 10^3/uL BMP 11/13/24 11/14/24 18:12 05:02 Sodium 142 Potassium 5.0 4.7 Chloride 105 Carbon Dioxide 22.3 BUN 63.0 H Creatinine 3.01 H Glucose 106 Calcium 6.5 L Liver Function 11/14/24 Range/Units 05:02 Total Bilirubin 0.7 (0.2-1.0) mg/dL AST 21 (15-37) U/L ALT 21 (14-59) U/L Alkaline Phosphatase 79 (46-116) U/L Albumin 2.4 L (3.4-5.0) g/dL Urine 11/14/24 Range/Units 08:00 Urine Color Lt. yellow (YELLOW) Urine Clarity Sl cloudy (CLEAR) Urine pH 5.5 (5.0-9.0) Ur Specific Stanley 1.025 (1.005-1.025) Urine Protein Trace (NEG/TRACE) mg/dL Urine Glucose (UA) Negative (NEGATIVE) mg/dL Assessment and Plan Assessment and Plan (1) Hyperkalemia: (2) Acute kidney injury superimposed on chronic kidney disease: (3) Anemia: (4) Acute exacerbation of COPD with asthma: (5) Tobacco abuse: (6) Tobacco abuse counseling: (7) Diastolic heart failure: (8) Aortic stenosis: (9) Pulmonary hypertension: (10) Hypoxic respiratory failure: (11) UTI (urinary tract infection) due to Enterococcus: Plan Acute on chronic kidney injury associated with hyperkalemia. Baseline creatinine is 2.5. Patient follows up with nephrology in [place]. Significant elevation of BNP but no overwhelming clinical evidence of fluid overload. Acute component had improved after patient was given a blood. Additional diuresis and monitor. Kidney function Hyperkalemia have been corrected. She was given Kayexalate Hypoxic respiratory failure, tachypnea Element of acute/subacute diastolic heart failure Last echocardiogram showed normal ejection fraction but positive for moderate to severe aortic stenosis that may be contributing to her diastolic dysfunction Echo also showed severe pulmonary hypertension. That is likely contributing to her subjective shortness of breath Patient continues to smoke. She has been a smoker for many years. Suspect underlying COPD. Tobacco addiction, half a pack daily for the last 25 years Counseling and medication were provided Anemia. Iron study is consistent with anemia of chronic disease. Patient reported witnessing some blood in the stool but not significant. Patient reported that she had EGD and colonoscopy showing polyps. I tried to look up her filings record. I did not see any EGD and colonoscopy done at [facility] Recommend GI investigation. Status post 2 units of RBC transfusion. UTI Cultures pending. Empiric antibiotic. Chronic medical conditions not listed above, incidental findings seen on labs and imaging. These would need to be addressed. Could be addressed when time and condition are appropriate. Could be addressed in the outpatient setting by PCP collaboration with other needed outpatient providers. Overall patient has poor prognosis. Suspect severe COPD and emphysema. Patient has severe pulm hypertension. She has moderate to severe aortic stenosis. She has stage IV-V kidney failure. She continues to smoke. She has muscle wasting and atrophy. The chronic functional status. I spent about 45 minutes in the critical care evaluation, assessment and treatment of this patient thus far
--- NOTE | 2024-11-14 13:19 | SWNOTE1 ---
Faxed pt updates to [facility].
[2024-11-14] MEDS: FUROSEMIDE 40 MG/4 ML VIAL 60 MG IVP (13:30)
[2024-11-14] MEDS: CEFUROXIME AXETIL 250 MG TABLET PO ×2 (13:31→21:00)
[2024-11-14] MEDS: DEXAMETHASONE SOD PHOS 4 MG/ML VIAL IV ×2 (13:31→21:01)
--- NOTE | 2024-11-14 14:14 | SWNOTE1 ---
SW received email from [facility] and they are not current with pt but they are able to accept.
--- NOTE | 2024-11-14 14:20 | SWNOTE1 ---
SW did review OT note and SNF was recommended. SW to speak to patient about this. Pt was not able to completed PT eval at this time.
--- NOTE | 2024-11-14 14:42 | SWNOTE1 ---
SW stopped in to speak with pt about rehab recommendation. Pt voiced she does well at home. She does use her walker at all times. Pt did not really answer if she is agreeable to go to rehab. SW let her know that we will see how she does with therapy tomorrow and SW will be back in. SW and pt spoke about [facility] and that they will be coming in to the home. SW did ask about home oxygen and she does have 3 liters of home oxygen continuous from [employer]. At this time no further questions, SW to follow as needed.
[2024-11-14] MEDS: ALPRAZOLAM 0.5 MG TABLET PO (14:57)
[2024-11-14] MEDS: IPRATROPIUM/ALBUTEROL SULFATE 3 ML AMPUL.NEB IH (20:23)
[2024-11-15] VITALS (12 sets, daily range): BP systolic 122–139; BP diastolic 61–83; PULSE 67–85; TEMP 36.4–36.8; O2SAT 93–98
[2024-11-15] MEDS: ALPRAZOLAM 0.5 MG TABLET PO ×2 (00:40→08:30)
[2024-11-15 06:10] LABS: Hematocrit 29.7 % (36.0-48.0); Hemoglobin 9.5 g/dL (12.0-16.0); Mean Corpuscular HGB Conc 32.0 g/dL (29.9-35.2); Mean Corpuscular Hemoglobin 31.3 pg (26.7-34.0); Mean Corpuscular Volume 97.7 fL (81.0-99.0); Platelet Count 190 10^3/uL (150-450); Red Blood Count 3.04 10^6/uL (4.20-5.40); White Blood Count 5.3 10^3/uL (4.0-11.0)
[2024-11-15 06:22] LABS: Anion Gap 16.1; Blood Urea Nitrogen 67.0 mg/dL (7.0-18.0); Calcium 6.4 mg/dL (8.5-10.1); Carbon Dioxide 24.8 mmol/L (21.0-32.0); Chloride 107 mmol/L (98-107); Estimated GFR (African America 20 (>=60 mL/min/1.73m^2); Estimated GFR (Non-African Ame 17 (>=60 mL/min/1.73m^2); Glucose 97 mg/dL (74-106); Potassium 4.9 mmol/L (3.5-5.1); Sodium 143 mmol/L (136-145)
[2024-11-15] MEDS: PANTOPRAZOLE SODIUM 40 MG VIAL IV (07:39)
[2024-11-15] MEDS: FLUOXETINE HCL 20 MG CAPSULE 40 MG PO (08:23)
[2024-11-15] MEDS: ATORVASTATIN CALCIUM 20 MG TABLET PO (08:23)
[2024-11-15] MEDS: LEVETIRACETAM 250 MG TABLET PO (08:24)
[2024-11-15] MEDS: CEFUROXIME AXETIL 250 MG TABLET PO (08:24)
[2024-11-15] MEDS: METOPROLOL TARTRATE 25 MG TABLET 12.5 MG PO (08:24)
[2024-11-15] MEDS: DEXAMETHASONE SOD PHOS 4 MG/ML VIAL IV (08:25)
[2024-11-15] MEDS: FERROUS SULFATE 325 MG TABLET PO (08:25)
--- NOTE | 2024-11-15 08:35 | SWNOTE1 ---
Called [employer] to confirm pt gets home oxygen through them. They did confirm this. Pt also has prescription to wear 2L oxygen during day and 3L at night.
--- NOTE | 2024-11-15 09:42 | CM.NOTE ---
Reviewed plan of care with Dr. Smith. Plan for discharge to home with Home Health. Follow up with Dr. Oconnor, Nephrology and Dr. Barber.
--- NOTE | 2024-11-15 10:24 | SWNOTE1 ---
SW and I stopped in pt's room. Pt voiced she was feeling better today. Pt worked with therapy and SW asked pt how it went. Pt voiced it went well. PT recommendation was for pt to have home health. Pt is ready for d/c today. Pt is already set up with [facility] and will continue with them at d/c.
--- NOTE | 2024-11-15 10:24 | SWNOTE1 ---
Important Message from [employer] reviewed and discussed with patient. Pt. verbalized understanding and signed the form. Original given to patient and copy placed in patient?s chart.
--- NOTE | 2024-11-15 12:53 | P.DS_ITS ---
DS: Providers Provider Date of admission: 11/13/24 15:00 Primary care physician: BARRY BARBER Consults: 11/13/24 16:12 Consult to Cardiology Routine Reason for consultation: NSTEMI 11/14/24 Occupational Therapy Eval and Treat Routine Reason for consultation: weakness Physical Therapy Eval and Treat Routine Reason for consultation: weakness DS: Diagnosis Discharge Diagnosis (1) Hyperkalemia: (2) Acute kidney injury superimposed on chronic kidney disease: (3) Anemia: (4) Acute exacerbation of COPD with asthma: (5) Tobacco abuse: (6) Tobacco abuse counseling: (7) Diastolic heart failure: (8) Aortic stenosis: (9) Pulmonary hypertension: (10) Hypoxic respiratory failure: (11) UTI (urinary tract infection) due to Enterococcus: Plan As listed above and others that are not listed DS: Summary Hospital Course Hospital Course: Mrs Berg came in with shortness of breath and was found to have the following: Acute on chronic kidney injury associated with hyperkalemia. Baseline creatinine is 2.5. Patient follows up with nephrology in [place]. Significant elevation of BNP but no overwhelming clinical evidence of fluid overload. Acute component had improved after patient was given a blood suggestive of hemodynamic mediated ELI. Hyperkalemia have been corrected. She was given Kayexalate Reduce her lisinopril dose in half on discharge. Additional titration of blood pressure medication and diuretics would need to be adjusted in the outpatient setting by PCP and nephrology Hypoxic respiratory failure, tachypnea, dyspnea, shortness of breath which is m ultifactorial secondary to aortic stenosis, diastolic heart failure, severe pulm hypertension, underlying COPD active smoking for 50 years. Chronic hypoxic respiratory failure Element of acute/subacute diastolic heart failure Last echocardiogram showed normal ejection fraction but positive for moderate to severe aortic stenosis that may be contributing to her diastolic dysfunction Echo also showed severe pulmonary hypertension. That is likely contributing to her subjective shortness of breath Patient continues to smoke. She has been a smoker for many years. Suspect underlying COPD. Patient is on oxygen Recommend patient to follow-up with pulmonary team. 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 Iron study is consistent with anemia of chronic disease. Patient reported witnessing some blood in the stool but not significant. Patient reported that she had EGD and colonoscopy showing polyps. I tried to look up her filings record. I did not see any EGD and colonoscopy done at [facility] Recommend GI investigation. We will arrange for patient to follow-up with GI service at [facility]'s Status post 2 units of RBC transfusion. Hemoglobin is stable for 48 hours post RBC transfusion Continue PPI. UTI Cultures pending. Empiric antibiotic. Culture is positive for 70,000 colonies of mixed bacterial skin organism. Discontinue antibiotic Chronic medical conditions not listed above, incidental findings seen on labs and imaging. These would need to be addressed. Could be addressed when time and condition are appropriate. Could be addressed in the outpatient setting by PCP collaboration with other needed outpatient providers. Overall patient has poor prognosis. Suspect severe COPD and emphysema. Patient has severe pulm hypertension. She has moderate to severe aortic stenosis. She has stage IV-V kidney failure. She continues to smoke. She has muscle wasting and atrophy. Patient has multiple complex medical issues as listed above and others that are not listed. All appear to be fairly stable. Patient is requesting to be discharged home today. Patient states that she is back to baseline sleep. Patient is not interested and not willing to stay longer for an additional diagnostic and therapeutic intervention in the hospital. At this time, I do not have any clear or strong clinical justification to extend inpatient hospitalization. Patient however will require close and frequent monitoring as well as additional work-up, investigation and therapeutic intervention that could take place from this point on post discharge. That is to prevent relapse, decompensation, rehospitalization and other medical implications. Patient would need final adjustment of blood pressure medication and diuretics to keep her blood pressure in a stable range and to keep her in euvolemic state. Patient will need to stop smoking. I instructed patient to ask her primary care doctor to obtain [facility] record entirely to address abnormalities seen on labs and imaging that I have and have not addressed during this hospitalization, follow-up on pending blood work, imaging and pathology is if available and to follow-up on needed medical care in the outpatient setting. Time Spent with Patient Time attestation: Total time spent providing and/or coordinating discharge services: Time spent: greater than 30 minutes Exam Constitutional Vital Signs, click to edit/add: Last Vital Signs Temp 98.2 F 11/15/24 11:38 Pulse 70 11/15/24 12:00 Resp 16 11/15/24 11:38 BP 137/83 11/15/24 11:38 Pulse Ox 97 11/15/24 11:38 O2 Del Method Nasal Cannula 11/15/24 11:38 O2 Flow Rate 3 11/15/24 11:38 DS: Data Data Completed and Pending Labs on day of discharge: Labs from last 24 hours 11/15/24 11/14/24 05:42 05:02 WBC 5.3 RBC 3.04 L Hgb 9.5 L Hct 29.7 L MCV 97.7 MCH 31.3 MCHC 32.0 RDW 16.0 H Plt Count 190 MPV 9.3 L Sodium 143 Potassium 4.9 Chloride 107 Carbon Dioxide 24.8 Anion Gap 16.1 BUN 67.0 H Creatinine 2.77 H Est GFR ( Amer) 20 L Est GFR (Non-Af Amer) 17 L BUN/Creatinine Ratio 24.2 Glucose 97 Estimat Average Glucose 97 Hemoglobin A1c 5.0 Calcium 6.4 L Miscellaneous Test Comment Preliminary micro results at discharge 11/14/24 08:00 Urine Culture - Preliminary Urine,Clean Catch Pending - Specimen sent to [facility] Discharge Plan Discharge Disposition: Home Health Service Condition: Fair Assessment: I may not have addressed or treated all of your medical illnesses or the abnormal blood work or imaging studies during this hospitalization. Please ask your primary care provider to obtain [facility] records entirely to follow up on all of the abnormal physical, laboratory, and imaging findings that I have not a ddressed. Please return back to the emergency room or seek medical attention if your symptoms worsen or return. Please follow-up with your primary care doctor, kidney doctor, heart doctor and also the stomach and colon specialist at [facility] We have made some changes in your medications. Please follow the new regimen. The new regimen may not be final or setting the stone. Your primary care doctor and kidney doctor would have to adjust your medications in the future based on your condition and situation. Please stop smoking. Discharging you from [facility] does not mean that your medical care ends here and now. You may still need additional monitoring, work up, investigation, and treatment plan to be handled from this point on by out patient providers inclu ding your primary care provider and specialists. For any medication question, please contact your retail pharmacist or your primary care provider. Thank you. Discharge Medications: New prednisone 10 mg tablet 10 mg PO DAILY Qty: 7 0RF Continued albuterol sulfate [Ventolin HFA] 90 mcg/actuation HFA aerosol inhaler 2 puff INHALATION Q4H PRN (Reason: shortness of breath or wheezing) Rexulti 1 mg tablet 1 mg PO QDAY Trulicity 0.75 mg/0.5 mL pen injector 0.75 mg SUBCUT QWEEK Patient Comments: Wednesday fluoxetine 40 mg capsule 40 mg PO DAILY magnesium oxide 400 mg (241.3 mg magnesium) tablet 400 mg PO BID atorvastatin [Lipitor] 20 mg tablet 20 mg PO DAILY estradiol [Estrace] 0.01 % (0.1 mg/gram) cream 0.25 appful vaginal .2x a week fluticasone propion-salmeterol [Advair Diskus] 250-50 mcg/dose blister with device 1 inh inhalation BID pantoprazole 20 mg tablet,delayed release (DR/EC) 20 mg PO Q12H ferrous sulfate 325 mg (65 mg iron) Tablet 325 mg PO BID Qty: 60 11RF Eliquis 2.5 mg tablet 2.5 mg PO BID bumetanide 2 mg tablet 2 mg PO DAILY Qty: 0 0RF calcium carbonate 200 mg calcium (500 mg) Tablet,Chewable 500 mg PO TID Qty: 90 0RF levetiracetam [Keppra] 500 mg tablet 250 mg PO BID Changed alprazolam 1 mg tablet 0.5 mg PO TID PRN (Reason: anxiety) Qty: 0 0RF tizanidine 4 mg tablet 2 mg PO TID PRN (Reason: muscle spasticity) Qty: 0 0RF lisinopril 20 mg tablet 10 mg PO DAILY Qty: 0 0RF metoprolol tartrate 50 mg tablet 25 mg PO BID Qty: 0 0RF Discontinued dapagliflozin propanediol [Farxiga] 10 mg tablet 10 mg PO DAILY potassium chloride 20 mEq tablet extended release 20 meq PO DAILY Print Language: Kinyarwanda Forms: Portal Instructions Referrals: Janae Lopez MD [Physician] Referral Note: Regarding anemia. JONY KIRK [Physician, Family Practice] Referral Note: Regarding COPD and pulmonary hypertension Follow Up Appointments: Dr Barber October @ 4:[address] Radha October @11:00 phone [phone] Dr Pearson (nephrology) November 30, 2024 @4:00
--- NOTE | 2024-11-15 13:06 | SWNOTE1 ---
Faxed CRF, med rec, d/c summary, and other updates to [email or web address] .
--- NOTE | 2024-11-15 15:10 | SWNOTE1 ---
[facility] faxed [facility] summary to [facility], adult protective caseworker Molly, for continuation of care for pt.
--- NOTE | 2024-11-16 15:25 | CM.DCFOLLOWU ---
Person spoke with:patient's daughter How are you feeling?well How is your pain?none Did you understand your discharge instructions?yes Do you have any questions about your discharge instructions?no Were you given any prescriptions at discharge?yes Were you able to get your prescriptions filled?yes Do you understand how to take your medications as ordered?yes Do you have any questions about your follow up appointment and do you plan to keep your follow up appointment?no questions, will follow up Is there anything else that you would like to discuss?no Questions/Comments/Concerns/Other:none
--- NOTE | 2024-11-19 08:32 | PC.NURSE ---
Stock Letterer reviewed urine culture and gave to to Dr. Smith for further review. No new orders at this time.
== END 2024-11-15 15:02 | disposition home health service (06) | DRG 682 ==
LOC: ER 14:38 → MS 15:08
PROVIDERS: Admitting Provider Internal Medicine; Emergency Provider Emergency Medicine; PCP Internal Medicine; Visit Provider Internal Medicine
DX: I12.0 Hypertensive chronic kidney disease with stage 5 chronic kidney disease or end stage renal disease (principal); I21.A1 Myocardial infarction type 2; I50.33 Acute on chronic diastolic (congestive) heart failure; N17.9 Acute kidney failure, unspecified; J96.11 Chronic respiratory failure with hypoxia; J44.1 Chronic obstructive pulmonary disease with (acute) exacerbation; N39.0 Urinary tract infection, site not specified; R64 Cachexia; N18.5 Chronic kidney disease, stage 5; E87.5 Hyperkalemia; N18.9 Chronic kidney disease, unspecified; I35.0 Nonrheumatic aortic (valve) stenosis; I27.20 Pulmonary hypertension, unspecified; F17.210 Nicotine dependence, cigarettes, uncomplicated; D63.8 Anemia in other chronic diseases classified elsewhere; J43.9 Emphysema, unspecified; Z87.440 Personal history of urinary (tract) infections; Z79.85 Long-term (current) use of injectable non-insulin antidiabetic drugs; E11.22 Type 2 diabetes mellitus with diabetic chronic kidney disease; Z90.49 Acquired absence of other specified parts of digestive tract; Z90.710 Acquired absence of both cervix and uterus; Z87.01 Personal history of pneumonia (recurrent); Z68.27 Body mass index [BMI] 27.0-27.9, adult; I48.0 Paroxysmal atrial fibrillation
CPT/HCPCS: 36415; 36430; 71045; 76775; 80048; 80053; 81001; 82728; 83036; 83540; 83550; 83880; 84132; 84443; 84484; 85014; 85018; 85025; 85027; 86850; 86900; 86901; 86923; 87086; 93005; 94640; 94761; 96374; 97110; 97161; 97165; 97530; 99285; 99406; G0328; J0613; J1100; J1817; J1938; P9016; P9046

== ENCOUNTER 2024-11-21 16:11 | Emergency (ER) | payer MEDICARE, MEDICAID, SELFPAY ==
[2024-11-21] VITALS (36 sets, daily range): BP systolic 70–142; BP diastolic 48–69; PULSE 97–211; TEMP 36.4; O2SAT 81–100; BMI 28.5
--- NOTE | 2024-11-21 16:22 | XR_ITS ---
The [address] [address] Patient Name: MARTIN HAGEN MRN: [id number] date: 1950 Sex: F Assigned Patient Location: ED.MAIN Current Patient Location: ED.MAIN Accession/Order Number: [id number] Exam Date: 11/21/2024 16:48 Report Date: 11/21/2024 16:50 At the request of: MARY ALEJANDRE MD Procedure: XR chest 1V Plain film chest Single view HISTORY: Weakness. Fell out of wheelchair COMPARISON: 11/13/2024 FINDINGS: SUPPORT DEVICES: None POSTSURGICAL CHANGES: None HEART: Within normal limits PULMONARY SE: Within normal limits MEDIASTINUM: Unremarkable LUNGS AND PLEURA: Mild progression of splenomegaly moderate right basilar pleural-parenchymal changes. Basilar atelectasis. No pneumothorax. BONY STRUCTURES: Degenerative and chronic changes ADDITIONAL FINDINGS None XR/XR chest 1V IMPRESSION: Mild progression of moderate right basilar pleural-parenchymal changes. Basilar atelectasis. Impression dictated by: Gato Fong M.D. 11/21/2024 4:50 PM Dictation Location: [place] [address] Electronically authenticated by: [id number] Y Date: 11/21/2024 16:50
--- NOTE | 2024-11-21 16:22 | ECG_ITS ---
The 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 Measurements Intervals [place] Rate: 101 P: -[id number] NE: -[id number] QRS: -66 QRSD: 130 T: 22 QT: 398 QTc: 456 Interpretive Statements ATRIAL FIBRILLATION WITH RAPID VENTRICULAR RESPONSE 2450 Right bundle branch block 3114 Cannot rule out anterior myocardial infarction, age undetermined 3634 Inferior myocardial infarction, age undetermined 9150 abnormal ECG Compared to ECG 11/14/2024 05:33:04 Right bundle-branch block now present Myocardial infarct finding now present Sinus rhythm no longer present Electronically Signed On 11-22-2024 7:12:19 EDT by NOELLE BUITRAGO M.D.
[2024-11-21] MEDS: CALCIUM GLUC IN NACL, ISO-OSM 1 GM/50 ML PLAST..BAG IV ×2 (16:33→17:55)
[2024-11-21 16:37] LABS: Hematocrit 34.5 % (36.0-48.0); Hemoglobin 10.5 g/dL (12.0-16.0); Immature Granulocytes Abs Auto 0.05 10^3/uL (0.00-0.03); Immature Granulocytes Pct Auto 0.4 % (0.0-0.5); Lymphocytes Absolute Auto 1.1 10^3/uL (1.2-3.8); Mean Corpuscular HGB Conc 30.4 g/dL (29.9-35.2); Mean Corpuscular Hemoglobin 31.5 pg (26.7-34.0); Mean Corpuscular Volume 103.6 fL (81.0-99.0); Platelet Count 194 10^3/uL (150-450); Red Blood Count 3.33 10^6/uL (4.20-5.40); White Blood Count 12.9 10^3/uL (4.0-11.0)
[2024-11-21 16:45] LABS: Magnesium 2.2 mg/dL (1.8-2.4)
[2024-11-21 16:48] LABS: INR 1.22; Prothrombin Time 12.7 sec (9.0-11.6)
[2024-11-21 16:54] LABS: Lactate/Lactic Acid 1.9 mmol/L (0.4-2.0)
[2024-11-21 16:56] LABS: Alanine Aminotransferase 19 U/L (14-59); Albumin Globulin Ratio 0.7; Albumin Level 2.7 g/dL (3.4-5.0); Alkaline Phosphatase 76 U/L (46-116); Anion Gap 17.5; Aspartate Amino Transferase 19 U/L (15-37); Calcium 6.5 mg/dL (8.5-10.1); Carbon Dioxide 24.3 mmol/L (21.0-32.0); Chloride 103 mmol/L (98-107); Estimated GFR (African America 9 (>=60 mL/min/1.73m^2); Estimated GFR (Non-African Ame 8 (>=60 mL/min/1.73m^2); Globulin 3.8 g/dL; Glucose 137 mg/dL (74-106); Sodium 137 mmol/L (136-145); Total Protein 6.5 g/dL (6.4-8.2)
--- NOTE | 2024-11-21 16:58 | ED.WEAKNESS1 ---
HPI - Weakness General Chief complaint: Weakness Stated complaint: FALL Time Seen by Provider: 11/21/24 16:22 Source: patient and family Mode of arrival: ambulance History of Present Illness HPI Narrative: The patient history of congestive heart failure with preserved ejection fraction in addition to A-fib and taking Eliquis in addition to stage III renal failure, patient is coming to us after she became dizzy coming out of her primary care doctor office. The patient has not been eating or drinking for the last week she did mention that she had no appetite. She denies any nausea vomiting or any other concern of chest pain or any abdominal pain But she mentioned that she had no appetite and she has not been eating for the last few days No diarrhea no constipation She still using her baseline nasal cannula oxygen 2 L/min with no increase and she is denying any shortness of breath No increase in her lower limb edema Related Data Home Medications �Medication �Instructions �Recorded �Confirmed albuterol sulfate 90 mcg/actuation 2 puff inhalation Q4H PRN 10/08/22 11/21/24 aerosol inhaler (Ventolin HFA) shortness of breath or wheezing brexpiprazole 1 mg tablet (Rexulti) 1 mg PO QDAY 10/08/22 11/21/24 dulaglutide 0.75 mg/0.5 mL 0.75 mg subcut QWEEK high blood 10/08/22 11/21/24 subcutaneous pen injector sugar (Trulicity) fluoxetine 40 mg capsule 40 mg PO DAILY 10/08/22 11/21/24 magnesium oxide 400 mg (241.3 mg 400 mg PO BID 10/08/22 11/21/24 magnesium) tablet atorvastatin 20 mg tablet (Lipitor) 20 mg PO DAILY 03/09/23 11/21/24 estradiol 0.01% (0.1 mg/gram) 0.25 appful vaginal .2x a week 03/09/23 11/21/24 vaginal cream (Estrace) fluticasone 250 mcg-salmeterol 50 1 inh inhalation BID 03/09/23 11/21/24 mcg/dose blistr powdr for inhalation (Advair Diskus) levetiracetam 500 mg tablet 250 mg PO BID 05/11/23 11/21/24 (Keppra) pantoprazole 20 mg tablet,delayed 20 mg PO Q12H 10/25/23 11/21/24 release apixaban 2.5 mg tablet (Eliquis) 2.5 mg PO BID 11/13/24 11/21/24 Previous Rx's �Medication �Instructions �Recorded calcium carbonate 500 mg (2.5 x 200 mg calcium (500 03/24/23 mg)) PO TID #90 tabs ferrous sulfate 325 mg (65 mg 325 mg PO BID #60 tabs 10/28/23 iron) tablet alprazolam 1 mg tablet 0.5 mg (1/2 x 1 mg) PO TID PRN 11/15/24 anxiety #0 tabs bumetanide 2 mg tablet 2 mg PO DAILY #0 tabs 11/15/24 lisinopril 20 mg tablet 10 mg (1/2 x 20 mg) PO DAILY #0 11/15/24 tabs metoprolol tartrate 50 mg tablet 25 mg (1/2 x 50 mg) PO BID #0 tabs 11/15/24 prednisone 10 mg tablet 10 mg PO DAILY #7 tabs 11/15/24 tizanidine 4 mg tablet 2 mg (1/2 x 4 mg) PO TID PRN 11/15/24 muscle spasticity #0 tabs Allergies Allergy/AdvReac Type Severity Reaction Status Date / Time naproxen (From Aleve) AdvReac Mild Rash Verified 11/21/24 16:15 Review of Systems ROS Status of ROS 10 or more systems reviewed and unremarkable except as noted in history and below [facility] Medical History (Updated 11/21/24 @ 18:28 by Kary Mathew MD) Hyperkalemia �E87.5 - Hyperkalemia (ICD-10) Left lower lobe pneumonia �J18.9 - Pneumonia, unspecified organism (ICD-10) Chronic kidney disease (CKD) �N18.9 - Chronic kidney disease, unspecified (ICD-10) Hypocalcemia �E83.51 - Hypocalcemia (ICD-10) Anemia �D64.9 - Anemia, unspecified (ICD-10) COPD exacerbation �J44.1 - Chronic obstructive pulmonary disease with (acute) exacerbation (ICD-10) Shortness of breath �R06.02 - Shortness of breath (ICD-10) Congestive heart failure �I50.9 - Heart failure, unspecified (ICD-10) Hyponatremia �E87.1 - Hypo-osmolality and hyponatremia (ICD-10) Acute hypokalemia �E87.6 - Hypokalemia (ICD-10) Closed fracture of right hip �S72.001A - Fracture of unspecified part of neck of right femur, initial encounter for closed fracture (ICD-10) Fall �W19.XXXA - Unspecified fall, initial encounter (ICD-10) Closed fracture of left condylar process of mandible �S02.612A - Fracture of condylar process of left mandible, initial encounter for closed fracture (ICD-10) UTI (urinary tract infection) �N39.0 - Urinary tract infection, site not specified (ICD-10) Hypocalcemia �E83.51 - Hypocalcemia (ICD-10) CKD (chronic kidney disease) stage 4, GFR 15-29 ml/min �N18.4 - Chronic kidney disease, stage 4 (severe) (ICD-10) Chronic anemia �D64.9 - Anemia, unspecified (ICD-10) Hemorrhoids �K64.9 - Unspecified hemorrhoids (ICD-10) Diarrhea in adult patient �R19.7 - Diarrhea, unspecified (ICD-10) New onset seizure without head trauma �R56.9 - Unspecified convulsions (ICD-10) Acute kidney injury superimposed on CKD �N17.9 - Acute kidney failure, unspecified (ICD-10) �N18.9 - Chronic kidney disease, unspecified (ICD-10) Hypokalemia �E87.6 - Hypokalemia (ICD-10) Hypomagnesemia �E83.42 - Hypomagnesemia (ICD-10) Generalized seizure �R56.9 - Unspecified convulsions (ICD-10) Acute otitis externa of left ear �H60.502 - Unspecified acute noninfective otitis externa, left ear (ICD-10) Adrenal adenoma �D35.00 - Benign neoplasm of unspecified adrenal gland (ICD-10) (HFpEF) heart failure with preserved ejection fraction �I50.30 - Unspecified diastolic (congestive) heart failure (ICD-10) Chronic respiratory failure with hypoxia �J96.11 - Chronic respiratory failure with hypoxia (ICD-10) Anemia due to chronic kidney disease �N18.9 - Chronic kidney disease, unspecified (ICD-10) �D63.1 - Anemia in chronic kidney disease (ICD-10) Heart murmur �R01.1 - Cardiac murmur, unspecified (ICD-10) UTI due to Klebsiella species �N39.0 - Urinary tract infection, site not specified (ICD-10) �B96.89 - Other specified bacterial agents as the cause of diseases classified elsewhere (ICD-10) C. difficile diarrhea �A04.72 - Enterocolitis due to Clostridium difficile, not specified as recurrent (ICD-10) Obesity �E66.9 - Obesity, unspecified (ICD-10) Depression �F32.A - Depression, unspecified (ICD-10) Hypertension �I10 - Essential (primary) hypertension (ICD-10) Atrial fibrillation �I48.91 - Unspecified atrial fibrillation (ICD-10) CKD (chronic kidney disease) stage 3, GFR 30-59 ml/min �N18.30 - Chronic kidney disease, stage 3 unspecified (ICD-10) Reducible umbilical hernia �K42.9 - Umbilical hernia without obstruction or gangrene (ICD-10) Hernia of anterior abdominal wall �K43.9 - Ventral hernia without obstruction or gangrene (ICD-10) Diabetes �E11.9 - Type 2 diabetes mellitus without complications (ICD-10) Anemia �D64.9 - Anemia, unspecified (ICD-10) Hypocalcemia �E83.51 - Hypocalcemia (ICD-10) CHF (congestive heart failure) �I50.9 - Heart failure, unspecified (ICD-10) Edema �R60.9 - Edema, unspecified (ICD-10) CHF (congestive heart failure) �I50.9 - Heart failure, unspecified (ICD-10) COPD (chronic obstructive pulmonary disease) �J44.9 - Chronic obstructive pulmonary disease, unspecified (ICD-10) Surgical History History of cholecystectomy �Z90.49 - Acquired absence of other specified parts of digestive tract (ICD-10) H/O: hysterectomy �Z90.710 - Acquired absence of both cervix and uterus (ICD-10) Family History (Updated 10/09/22 @ 00:43 by Jennifer Trejo) Family/Other Family history of CHF (congestive heart failure) Family history of COPD (chronic obstructive pulmonary disease) Family history of hypertension Social History (Updated 10/25/23 @ 23:37 by Bella Shepard RN) Within the past year, how often did you have a drink containing alcohol: never Within the past year, how often did you have six or more drinks on one occasion: never Score interpretation: A score less than 3 is consistent with normal alcohol consumption. Smoking status: Current every day smoker Second hand tobacco smoke exposure: No Non-prescribed substance use: denies use Previous occupational history: retired Known occupational exposures/hazards: Yes Highest level of school completed/degree received: high school graduate Are you now , , , , never or living with a partner: In a typical week, how many times do you talk on the telephone with family, friends, or neighbors: 3 or more times per week How often do you get together with friends or relatives: 3 or more times per week How often do you attend baptist or pentecostal services: 1-3 times per year Do you belong to any clubs or organizations such as baptist groups unions, [employer] or athletic groups, or school groups: no Total score: 1 Score interpretation: A score of less than or equal to 1 indicates the most socially isolated. Little interest or pleasure in doing things: not at all Feeling down, depressed, or hopeless: not at all Feel stressed/tense/nervous/anxious/difficulty sleeping: not at all Due to disability, difficulty making decisions: No Do you think of yourself as: straight/heterosexual Gender Identity: female Exam Narrative Exam Narrative: Nurses notes and vital signs reviewed and patient is not hypoxic. General: Pale Skin: The patient does have some papular rash just under the left breast but there is no vesicles and there is no rash in the back Head: Normocephalic, atraumatic.. Patient wearing sunglasses Ears, Nose, Mouth, and Throat: TM are clear, no nasal mucosal hypertrophy. Oral mucosa is moist, no posterior oropharynx erythema, uvula is mid-line Cardiovascular: irregular Rate and Rhythm without murmur, gallop or rub. Respiratory: No accessory muscle use or respiratory distress. Lungs decreased entry in the bases with distant breathing sound bilaterally but no wheezing Chest Wall: no tenderness Back: No midline thoracic or lumbar vertebral tenderness. No CVA tenderness Musculoskeletal: Bilateral 2+ pitting edema that looks chronic up to the level of the knee GI: Abdomen is soft, non-distended. Normal bowel sounds. No masses appreciated. No tenderness to palpation. No rebound, guarding, or rigidity noted. Neurological: A&O x4. No cranial nerve dysfunction observed. No truncal ataxia. Moves all extremities. Sensation intact. Constitutional Vital Signs, click to edit/add: Last Vital Signs Temp 97.6 F 11/21/24 16:15 Pulse 129 H 11/21/24 18:40 Resp 17 11/21/24 18:40 BP 114/69 11/21/24 18:30 Pulse Ox 97 11/21/24 18:30 O2 Del Method Nasal Cannula 11/21/24 16:26 O2 Flow Rate 3 11/21/24 16:26 Course Vital Signs Vital signs: Vital Signs Temperature 97.6 F 11/21/24 16:15 Pulse Rate 105 H 11/21/24 16:15 Respiratory Rate 20 11/21/24 16:15 Blood Pressure 70/58 L 11/21/24 16:15 Pulse Oximetry 98 11/21/24 16:15 Oxygen Delivery Method Nasal Cannula 11/21/24 16:15 Oxygen Delivery Flow Rate 3 11/21/24 16:15 Temperature 97.6 F 11/21/24 16:15 Pulse Rate 129 H 11/21/24 18:40 Respiratory Rate 17 11/21/24 18:40 Blood Pressure 114/69 11/21/24 18:30 Pulse Oximetry 97 11/21/24 18:30 Oxygen Delivery Method Nasal Cannula 11/21/24 16:26 Oxygen Delivery Flow Rate 3 11/21/24 16:26 MDM - Weakness MDM Narrative Medical decision making narrative: The patient was pale on arrival and with a history of hyperkalemia the EKG did show hyperkalemic changes of peaked T waves the patient had her EKG repeated multiple times the first EKG which showed atrial rhythm with a heart rate of 101 the second 1 was showing a heart rate of 96 with less peaked T waves and A-fib rhythm The patient chest x-ray showed mild increase in the right side effusion but there is no infiltrate and the patient have no fever no cough no difficulty breathing The patient also had a CBC showing 12.9 white blood cell Chemistry showing elevated potassium at 7.8 BUN is 100 and creatinine is about 5 which is acute on top of her chronic disease with a creatinine at baseline of 2.7 The patient initially was started on calcium gluconate 1 g and then she also had pads for the monitor placed in case the patient goes into V. tach with her hyperkalemia The patient also provided with the 10 units of her insulin regular in addition to dextrose 50% 10 g of Lokelma provided pt case discussed with Dr Brown and we did do a bladder scan that showed less than 5 cc in her bladder and the patient did not have any suprapubic pain or any urge to urinate yet The patient continued to have IV fluid with a goal of 1 L for now, in addition to adding 1 ampoule of dextrose and awaiting further analysis to add more testing to it including urine sodium The patient case was accepted by in [facility] Lab Data Labs: Lab Results 11/21/24 11/21/24 Range/Units 16:30 18:41 WBC 12.9 H (4.0-11.0) 10^3/uL RBC 3.33 L (4.20-5.40) 10^6/uL Hgb 10.5 L (12.0-16.0) g/dL Hct 34.5 L (36.0-48.0) % MCV 103.6 H (81.0-99.0) fL MCH 31.5 (26.7-34.0) pg MCHC 30.4 (29.9-35.2) g/dL RDW 14.5 (11.0-15.0) % Plt Count 194 (150-450) 10^3/uL MPV 9.9 (9.5-13.5) fL Neut % (Auto) 85.5 H (43.0-75.0) % Lymph % (Auto) 8.7 L (20.5-60.0) % [place] % (Auto) 4.6 (1.7-12.0) % Eos % (Auto) 0.6 L (0.9-7.0) % Baso % (Auto) 0.2 (0.2-2.0) % Neut # (Auto) 11.0 H (1.4-6.5) 10^3/uL Lymph # (Auto) 1.1 L (1.2-3.8) 10^3/uL [place] # (Auto) 0.6 (0.3-0.8) 10^3/uL Eos # (Auto) 0.1 (0.0-0.7) 10^3/uL Baso # (Auto) 0.0 (0.0-0.1) 10^3/uL Abs Immat Gran (auto) 0.05 H (0.00-0.03) 10^3/uL Imm/Tot Granulo (auto) 0.4 (0.0-0.5) % PT 12.7 H (9.0-11.6) sec INR 1.22 Sodium 137 (136-145) mmol/L Potassium 7.8 H* (3.5-5.1) mmol/L Chloride 103 (98-107) mmol/L Carbon Dioxide 24.3 (21.0-32.0) mmol/L Anion Gap 17.5 BUN 100.0 H* (7.0-18.0) mg/dL Creatinine 5.43 H* (0.55-1.02) mg/dL Est GFR ( Amer) 9 L (>=60 mL/min/1.73m^2) Est GFR (Non-Af Amer) 8 L (>=60 mL/min/1.73m^2) BUN/Creatinine Ratio 18.4 Glucose 137 H (74-106) mg/dL Lactate 1.9 (0.4-2.0) mmol/L Calcium 6.5 L (8.5-10.1) mg/dL Magnesium 2.2 (1.8-2.4) mg/dL Total Bilirubin 0.5 (0.2-1.0) mg/dL AST 19 (15-37) U/L ALT 19 (14-59) U/L Alkaline Phosphatase 76 (46-116) U/L Troponin I High Sens 21.1 (4.0-51.3) pg/mL Total Protein 6.5 (6.4-8.2) g/dL Albumin 2.7 L (3.4-5.0) g/dL Globulin 3.8 g/dL Albumin/Globulin Ratio 0.7 POC Glucose 163 H (74-106) mg/dL Discharge Plan Discharge Chief Complaint: Weakness Clinical Impression: Acute on chronic renal failure, Acute hyperkalemia, Acute hypotension, Hypocalcemia Patient Disposition: [facility] Time of Disposition Decision: 18:28
[2024-11-21 17:01] LABS: Blood Urea Nitrogen 100.0 mg/dL (7.0-18.0); Potassium 7.8 mmol/L (3.5-5.1)
[2024-11-21] MEDS: 0.9 % SODIUM CHLORIDE 1,000 ML 500 ML IV (17:18)
[2024-11-21] MEDS: INSULIN REGULAR, HUMAN (100 UNIT/ML) 10 ML MDV 10 UNIT IV (17:20)
[2024-11-21] MEDS: DEXTROSE 50 %-WATER 25 GM/50 ML SYRINGE IV (17:22)
--- NOTE | 2024-11-21 17:39 | ECG_ITS ---
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 Measurements Intervals [place] Rate: 96 P: -36462 OR: -13594 QRS: 2 QRSD: 82 T: 33 QT: 350 QTc: 403 Interpretive Statements 1210 Atrial fibrillation RIGHT BUNDLE BRANCH BLOCK 3634 Inferior myocardial infarction, age undetermined 0104 ELECTRODE(S) DETACHED ... Repeat ECG is requested 9150 abnormal ECG Compared to ECG 11/21/2024 16:19:57 Rate related Right bundle-branch block is now present Myocardial infarct finding still present Electronically Signed On 11-22-2024 7:15:31 EDT by NOELLE BUITRAGO M.D.
--- NOTE | 2024-11-21 17:44 | PC.NURSE ---
pt moved from ED 9 to ED 6 d/t pt being placed on Zoll d/t potassium being reported back high. pt is alert to verbal stimulation and denies pain or complaints. pts daughter at bedside. Dr. Mathew at bedside in RM 6.
[2024-11-21] MEDS: SODIUM BICARBONATE 8.4 % 50 MEQ/50 ML SYRINGE IV (18:37)
--- NOTE | 2024-11-21 18:38 | PC.NURSE ---
pt remains on full office executive and Zoll. pt is easily aroused with verbal stimulation. pt A&Ox4.
--- NOTE | 2024-11-21 18:45 | PC.NURSE ---
fingerstick glucose performed at this time. glucose reported to Dr. Mathew of 162.
[2024-11-21] MEDS: SODIUM ZIRCONIUM CYCLOSILICATE 10 GM POWD.PACK PO (19:37)
--- NOTE | 2024-11-21 19:46 | PC.NURSE ---
bladder scan performed at this time, less than 10ml noted on bladder scan, Dr. Mathew notified.
--- NOTE | 2024-11-21 19:55 | PC.NURSE ---
EMS arrived at this time. bedside report given to EMS crew, all questions answered. pt transferred from ED cart to EMS stretcher.
--- NOTE | 2024-11-21 20:26 | PC.NURSE ---
nursing report called to Shruthi OLIVER at [facility]. all questions answered.
== END 2024-11-21 20:11 | disposition short-term general hospital (02) ==
PROVIDERS: Emergency Medicine; Emergency Provider Internal Medicine; PCP Internal Medicine
DX: N17.9 Acute kidney failure, unspecified (principal); E87.5 Hyperkalemia; E83.51 Hypocalcemia; I50.9 Heart failure, unspecified; I48.91 Unspecified atrial fibrillation; Z79.01 Long term (current) use of anticoagulants; N18.30 Chronic kidney disease, stage 3 unspecified; Z99.81 Dependence on supplemental oxygen; Z90.49 Acquired absence of other specified parts of digestive tract; Z90.710 Acquired absence of both cervix and uterus; F17.200 Nicotine dependence, unspecified, uncomplicated; I95.9 Hypotension, unspecified
CPT/HCPCS: 36415; 71045; 80053; 83605; 83735; 84484; 85025; 85610; 93005; 96361; 96365; 96366; 96375; 99285; J0613; J1817; J2405

== ENCOUNTER 2025-01-30 09:47 | Outpatient (OUT) | payer MEDICARE, MEDICAID, SELFPAY ==
--- OUTSIDE RECORDS SUMMARY | 2025-01-04 14:54 | XMS_ITS ---
Author Name Auto Generated Organization OHIP Support Name Relationship Address Phone BRIAN, RADHA Next of Kin Unknown + MOTTER, SIN Next of Kin Unknown [phone] ANNA HAGEN Next of Kin Unknown [phone] BRIAN, RADHA Next of Kin Unknown + MOTTER, SIN Next of Kin Unknown [phone] ANNA HAGEN Next of Kin Unknown [phone] XiaoAnna virk Next of Kin [address] [place] [address] + BRIAN, RADHA Next of Kin Unknown + MOTTER, SIN Next of Kin Unknown [phone] ANNA HAGEN Next of Kin Unknown [phone] BRIAN, RADHA Next of Kin Unknown + MOTTER, SIN Next of Kin Unknown [phone] XIAOANNA VIRK Next of Kin Unknown [phone] BRIAN, RADHA Next of Kin Unknown + MOTTER, SIN Next of Kin Unknown [phone] DARSHAN HAGENLA Next of Kin Unknown [phone] BRIAN, RADHA Next of Kin Unknown + MOTTER, SIN Next of Kin Unknown [phone] XIAODARSHAN VIRKLA Next of Kin Unknown [phone] BRIAN, RADHA Next of Kin Unknown + MOTTER, SIN Next of Kin Unknown [phone] ANNA HAGEN Next of Kin Unknown [phone] RADHA TORRES Next of Kin Unknown + SIN DONNELLY Next of Kin Unknown [phone] ANNA HAGEN Next of Kin Unknown [phone] NINA TORRESE Next of Kin Unknown + SIN DONNELLY Next of Kin Unknown [phone] ANNA HAGEN Next of Kin Unknown [phone] RADHA TORRES Next of Kin Unknown + SIN DONNELLY Next of Kin Unknown [phone] ANNA HAGEN Next of Kin Unknown [phone] Care Team Providers Care Operation Agent Name Role Phone Aby Smith Admitting Unavailable Aby Smith Attending Unavailable Shalonda Pearson Attending Unavailable Shawn Barber Primary Care Unavailable Shalonda Pearson Admitting Unavailable NON STAFF Primary Care Unavailable Christiano Alberto Attending Unavailable Sylvai Orellana Admitting Unavailable Shalonda Pearson Consulting Unavailable Sheila Tolliver Consulting Unavailable Gato Cleary Consulting Unavailable Peri Sam Consulting Unavailable Adalberto Cooley Consulting Unavailable Kodi Lovell Consulting UnavailSandor Ruiz Consulting Unavailable Jacqui Michael Attending Unavailable COLT THOMASON Attending Unavailable SHAWN BARBER Attending Unavailable SHAWN BARBER Attending Unavailable COLT THOMASON Attending Unavailable SHAWN BARBER Referring Unavailable COLT THOMASON Attending Unavailable SHAWN BARBER Attending Unavailable MAHAMED RM Attending Unavailable MAHAMED RM Attending Unavailable COLT THOMASON Attending Unavailable PROBLEMS DATE TYPE CONDITION / CODE ATTENDING STATUS [facility] 11/21/2024 Unknown Acute and chroni c respiratory failure with hypercapnia / J96.22(ICD-10) Christiano Alberto [facility] 11/21/2024 Unknown Chronic respirat ory failure with hypoxia / J96.11(ICD-10) Christiano Alberto [facility] 11/21/2024 Unknown Hyperkalemia / E87.5(ICD-10) [facility] 11/21/2024 Unknown Secondary hyperparathyroidism of renal origin / N25.81(ICD-10) [facility] 11/21/2024 Unknown Hypocalcemia / E83.51(ICD-10) [facility] 11/21/2024 Unknown Anemia in chroni c kidney disease / D63.1(ICD-10) [facility] 11/21/2024 Unknown Diarrhea, unspec ified / R19.7(ICD-10) [facility] 11/21/2024 Unknown Chronic kidney d isease, stage 4 (severe) / N18.4(ICD-10) [facility] 11/21/2024 Unknown Unspecified atri al fibrillation / I48.91(ICD-10) [facility] 11/21/2024 Unknown Nonrheumatic aor tic (valve) stenosis / I35.0(ICD-10) [facility] 08/04/2024 Unknown Acute kidney francis lure, unspecified / N17.9(ICD-10) [facility] 08/04/2024 Unknown Chronic kidney d isease, unspecified / N18.9(ICD-10) [facility] PROCEDURES No Procedure Records Found RESULTS GLUCOSE POCT GLUCOMETERS Collected: 11/30/2024 4:27 P M Status: F Source: [facility] TYPE CODE TESTS RESULT OUT OF RANGE REFERENCE UNITS LAB GLUPOC Glucose Poc Glucometers 116 mg/dL Result Comment: Random Gluco se Reference Range is dependent on time and content of last meal. Glucose of more than 200 mg/dL in a nonstressed, ambulatory subject supports the diagnosis of Diabetes Mellitus. PERFORMED BY: [facility] [place] [address] PATHOLOGIST SYSTEMS SOFTWARE DESIGNER TATYANA ALLEN M.D. Performed By: #### GLULS ### # Point of Care testing , US MAP HEMODIAL ACCESS PAUL Observed: 11/30/2024 2:13 PM Status: COMPLETED Source: [facility] [place] Main [place] [address] [place] [address] Ultrasound Report Signed Patient: Martin Hagen MR#: [id number] 52 : 1950 Acct:[id number] Age/Sex: 73 / F ADM Date: 11/21/24 Loc: Room: [address] [place] [address] Type: ADM IN Attending Dr: Christiano Alberto MD Ordering Provider: Kodi Lovell MD Date of Service: 11/29/24 US/US map hemodial access PAUL: HD access Copies to: MD Kodi Posey MD Bilateral upper extremity venogram Indications: Need for hemodialysis. FINDINGS: Right upper extremity: The right upper extremity basilic vein is excessively small for dialysis fistula creation. The right arm cephalic vein may be adequate in the arm. Left upper extremity: Neither the cephalic nor basilic veins are of adequate diameter for fistula creation. US/US map hemodial access PAUL IMPRESSION: As above Impression dictated by: Kodi Lovell MD,FACS,FSVS 11/30/2024 2:16 PM Dictation Location: [place] [address] Tech: Becca Poon Transcribed By: [facility] 11/30/24 1416 Dictated By: Kodi Lovell MD 11/30/24 1413 Signed By: <Electronically signed by Kodi Lovell MD in OV> 11/30/24 1416 GLUCOSE POCT GLUCOMETERS Collected: 11/30/2024 11:28 AM Status: F Source: [facility] TYPE CODE TESTS RESULT OUT OF RANGE REFERENCE UNITS LAB GLUPOC Glucose Poc Glucometers 144 mg/dL Result Comment: Random Gluco se Reference Range is dependent on time and content of last meal. Glucose of more than 200 mg/dL in a nonstressed, ambulatory subject supports the diagnosis of Diabetes Mellitus. PERFORMED BY: [place] [address] PATHOLOGIST SYSTEMS SOFTWARE DESIGNER TATYANA ALLEN M.D. Performed By: #### GLULS ### # Point of Care testing , BASIC METABOLIC PANEL Collected: 2024 6:50 AM Status: F Source: [facility] TYPE CODE TESTS RESULT OUT OF RANGE REFERENCE UNITS LAB GLU Glucose 80 Normal 70-100 mg/dL Result Comment: Random Gluco se Reference Range is dependent on time and content of last meal. Glucose of more than 200 mg/dL in a nonstressed, ambulatory subject supports the diagnosis of Diabetes Mellitus. ADA recommended reference range LAB BUN Blood Urea Nitrogen 20 Abnormal 7-25 mg/dL LAB CREATT Creatinine 1.71 High 0.60-1.20 mg/dL LAB GFReNR Estimated GFR 30.861 LAB NA Sodium 136 Normal 136-145 mmol/L LAB K Potassium 3.8 Normal 3.5-5.1 mmol/L LAB CL Chloride 99 Normal 98-107 mmol/L LAB CO2 Carbon Dioxide 31.3 High 21.0-31.0 mmol/L LAB GAP Anion Gap 9.5 Normal 6.0-15.0 LAB CA Calcium 7.9 Low 8.6-10.3 mg/dL LAB CRCLPHA Creatinine Clr Calc Pharmacy 24.37 Result Comment: PERFORMED BY : [place] [address] PATHOLOGIST SYSTEMS SOFTWARE DESIGNER TATYANA ALLEN M.D. Performed By: #### BMP #### [address] GLUCOSE POCT GLUCOMETERS Collected: 11/30/2024 6:49 A M Status: F Source: [facility] TYPE CODE TESTS RESULT OUT OF RANGE REFERENCE UNITS LAB GLUPOC Glucose Poc Glucometers 81 mg/dL Result Comment: Random Gluco se Reference Range is dependent on time and content of last meal. Glucose of more than 200 mg/dL in a nonstressed, ambulatory subject supports the diagnosis of Diabetes Mellitus. PERFORMED BY: [place] [address] PATHOLOGIST SYSTEMS SOFTWARE DESIGNER TATYANA ALLEN M.D. Performed By: #### GLULS ### # Point of Care testing , GLUCOSE POCT GLUCOMETERS Collected: 11/29/2024 9:02 P M Status: F Source: [facility] TYPE CODE TESTS RESULT OUT OF RANGE REFERENCE UNITS LAB GLUPOC Glucose Poc Glucometers 132 mg/dL Result Comment: Random Gluco se Reference Range is dependent on time and content of last meal. Glucose of more than 200 mg/dL in a nonstressed, ambulatory subject supports the diagnosis of Diabetes Mellitus. PERFORMED BY: [address] [place] [address] PATHOLOGIST SYSTEMS SOFTWARE DESIGNER TATYANA ALLEN M.D. Performed By: #### GLULS ### # Point of Care testing , METANEPHRINES, FRAC, QN 24HR Collected: 11/29/2024 6:00 PM Status: F Source: [facility] TYPE CODE TESTS RESULT OUT OF RANGE REFERENCE UNITS LAB UNORMETA Normetanephr ine, Ur 330 Undefined Result Comment: This test wa s developed and its performance characteristics determined by [facility]. It has not been cleared or approved by the Food and Drug Administration. LAB [id number] Normetanephr ine, Ur 24Hr 198 131-612 LAB UMETANEP Metanephrine , Ur 160 Undefined Result Comment: This test wa s developed and its performance characteristics determined by [facility]. It has not been cleared or approved by the Food and Drug Administration. LAB [id number] Metanephrine , Ur 24 Hr 96 36-209 Result Comment: Performed at : [address] [id number] Paint Stripper: Jeff Hubbard MD, Phone: [phone] PERFORMED BY: [address] [place] [address] PATHOLOGIST SYSTEMS SOFTWARE DESIGNER TATYANA ALLEN M.D. Performed By: #### MET FRAC2 4 #### [facility] , GLUCOSE POCT GLUCOMETERS Collected: 11/29/2024 4:48 P M Status: F Source: [facility] TYPE CODE TESTS RESULT OUT OF RANGE REFERENCE UNITS LAB GLUPOC Glucose Poc Glucometers 87 mg/dL Result Comment: Random Gluco se Reference Range is dependent on time and content of last meal. Glucose of more than 200 mg/dL in a nonstressed, ambulatory subject supports the diagnosis of Diabetes Mellitus. PERFORMED BY: [address] [place] [address] PATHOLOGIST SYSTEMS SOFTWARE DESIGNER TATYANA ALLEN M.D. Performed By: #### GLULS ### # Point of Care testing , HEPATITIS ACUTE PANEL Collected: 11/29/2024 3:08 PM Status: F Source: [facility] Order Comment: PT IS NOT IN ROOM WILL CALL [id number] TYPE CODE TESTS RESULT OUT OF RANGE REFERENCE UNITS LAB HAAB Hepatitis A Antibody IgM Negative Negative Result Comment: A negative a nti-HAV IgM result suggests no recent or current HAV infection. LAB HCBIGM Hepatitis B Core Antibody IgM Negative Negative LAB HBSAG SCR HBsAg Screen Negative Negative LAB HCV AB. Hepatitis C Virus Antibody Non Reactive Non Reactive LAB RFXHEPCINTERP Interpretation Hepatitis C Comment . Result Comment: Not infected with HCV unless early or acute infection is suspected (which may be delayed in an immunocompromised individual), or other evidence exists to indicate HCV infection. Performed By: #### HBSAB, HB CAB, HEPACUTE #### [facility] , HEPATITIS B SURFACE ANTIBODY Collected: 11/29/2024 3: 08 PM Status: F Source: [facility] Order Comment: PT IS NOT IN ROOM WILL CALL [id number] TYPE CODE TESTS RESULT OUT OF RANGE REFERENCE UNITS LAB HBSAB Hepatitis B Surface Antibody Non Reactive . Result Comment: Non Reactive : Not immune to HBV infection. Equivocal: Unable to determine if anti-HBs is present at levels consistent with immunity. Reactive: Anti-HBs concentration detected at greater than 10 mIU/mL. Individual is considered to be immune to infection with HBV. Performed By: #### HBSAB, HB CAB, HEPACUTE #### [facility] , HEPATITIS B CORE ANTIBODY Collected: 11/29/2024 3:08 PM Status: F Source: [facility] Order Comment: PT IS NOT IN ROOM WILL CALL [id number] TYPE CODE TESTS RESULT OUT OF RANGE REFERENCE UNITS LAB HBCAB Hepatitis B Core Antibody Negative Negative Result Comment: Performed at : [facility] [address] [id number] Paint Stripper: Percy Barragan PhD, Phone: [phone] PERFORMED BY: [facility] [address] [place] [address] PATHOLOGIST SYSTEMS SOFTWARE DESIGNER TATYANA ALLEN M.D. Performed By: #### HBSAB, HB CAB, HEPACUTE #### [facility] , GLUCOSE POCT GLUCOMETERS Collected: 11/29/2024 11:11 AM Status: F Source: [facility] TYPE CODE TESTS RESULT OUT OF RANGE REFERENCE UNITS LAB GLUPOC Glucose Poc Glucometers 93 mg/dL Result Comment: Random Gluco se Reference Range is dependent on time and content of last meal. Glucose of more than 200 mg/dL in a nonstressed, ambulatory subject supports the diagnosis of Diabetes Mellitus. PERFORMED BY: [place] [address] PATHOLOGIST SYSTEMS SOFTWARE DESIGNER TATYANA ALLEN M.D. Performed By: #### GLULS ### # Point of Care testing , GLUCOSE POCT GLUCOMETERS Collected: 11/29/2024 6:32 A M Status: F Source: [facility] TYPE CODE TESTS RESULT OUT OF RANGE REFERENCE UNITS LAB GLUPOC Glucose Poc Glucometers 99 mg/dL Result Comment: Random Gluco se Reference Range is dependent on time and content of last meal. Glucose of more than 200 mg/dL in a nonstressed, ambulatory subject supports the diagnosis of Diabetes Mellitus. PERFORMED BY: [place] [address] PATHOLOGIST SYSTEMS SOFTWARE DESIGNER TATYANA ALLEN M.D. Performed By: #### GLULS ### # Point of Care testing , RENIN ACTIVITY Collected: 6:07 AM Status: F Source: [facility] TYPE CODE TESTS RESULT OUT OF RANGE REFERENCE UNITS LAB RENACT Renin Activity <0.167 0.167-5.380 Result Comment: This test wa s developed and its performance characteristics determined by [facility]. It has not been cleared or approved by the Food and Drug Administration. Performed at: [address] [id number] Paint Stripper: Jeff Hubbard MD, Phone: [phone] PERFORMED BY: [address] [address] PATHOLOGIST SYSTEMS SOFTWARE DESIGNER TATYANA ALLEN M.D. Performed By: #### ALD, YANELIS CT #### [facility] , ALDOSTERONE Collected: 6:07 AM Status: F Source: [facility] TYPE CODE TESTS RESULT OUT OF RANGE REFERENCE UNITS LAB ALD Aldosterone 5.5 0.0-30.0 ng/dL Result Comment: This test wa s developed and its performance characteristics determined by [facility]. It has not been cleared or approved by the Food and Drug Administration. Performed at: [facility] [address] [id number] Paint Stripper: Jeff Hubbard MD, Phone: [phone] PERFORMED BY: [place] [address] PATHOLOGIST SYSTEMS SOFTWARE DESIGNER TATYANA ALLEN M.D. Performed By: #### YANELIS RAYMOND CT #### [facility] , BASIC METABOLIC PANEL Collected: 11/29/2024 6:07 AM Status: F Source: [facility] TYPE CODE TESTS RESULT OUT OF RANGE REFERENCE UNITS LAB GLU Glucose 91 Normal 70-100 mg/dL Result Comment: Random Gluco se Reference Range is dependent on time and content of last meal. Glucose of more than 200 mg/dL in a nonstressed, ambulatory subject supports the diagnosis of Diabetes Mellitus. ADA recommended reference range LAB BUN Blood Urea Nitrogen 50 High 7-25 mg/dL LAB CREATT Creatinine 3.10 High 0.60-1.20 mg/dL LAB GFReNR Estimated GFR 15.114 LAB NA Sodium 135 Low 136-145 mmol/L LAB K Potassium 4.6 Normal 3.5-5.1 mmol/L LAB CL Chloride 100 Normal 98-107 mmol/L LAB CO2 Carbon Dioxide 30.2 Normal 21.0-31.0 mmol/L LAB GAP Anion Gap 9.4 Normal 6.0-15.0 LAB CA Calcium 9.2 Normal 8.6-10.3 mg/dL LAB CRCLPHA Creatinine Clr Calc Pharmacy 13.53 Performed By: #### EVI, MARIANO S, BMP #### [place] [address] [place] PHOSPHORUS Collected: 6:07 AM Status: F Source: [facility] TYPE CODE TESTS RESULT OUT OF RANGE REFERENCE UNITS LAB PHOS Phosphorus 4.6 High 2.5-4.5 mg/dL Result Comment: PERFORMED BY : [place] [address] PATHOLOGIST SYSTEMS SOFTWARE DESIGNER TATYANA ALLEN M.D. Performed By: #### EVI, MARIANO S, BMP #### [place] [id number] [facility] CORTISOL Collected: 6:07 AM Status: F Source: [facility] TYPE CODE TESTS RESULT OUT OF RANGE REFERENCE UNITS LAB EVI Cortisol 21.1 ug/dL Result Comment: Reference ra nge: AM 6 - 24 ug/dl PM <10 ug/dl [facility] rate reviewer and method: [employer] DXI, POLYCLONAL ANTIBODY CORTISOL ASSAY. PERFORMED BY: [place] [address] PATHOLOGIST SYSTEMS SOFTWARE DESIGNER TATYANA ALLEN M.D. Performed By: #### EVI, MARIANO S, BMP #### [place] [id number] [facility] GLUCOSE POCT GLUCOMETERS Collected: 11/28/2024 8:34 P M Status: F Source: [facility] TYPE CODE TESTS RESULT OUT OF RANGE REFERENCE UNITS LAB GLUPOC Glucose Poc Glucometers 170 mg/dL Result Comment: Random Gluco se Reference Range is dependent on time and content of last meal. Glucose of more than 200 mg/dL in a nonstressed, ambulatory subject supports the diagnosis of Diabetes Mellitus. PERFORMED BY: [place] [id number] PATHOLOGIST SYSTEMS SOFTWARE DESIGNER TATYANA ALLEN M.D. Performed By: #### GLULS ### # Point of Care testing , GLUCOSE POCT GLUCOMETERS Collected: 11/28/2024 4:54 P M Status: F Source: [facility] TYPE CODE TESTS RESULT OUT OF RANGE REFERENCE UNITS LAB GLUPOC Glucose Poc Glucometers 121 mg/dL Result Comment: Random Gluco se Reference Range is dependent on time and content of last meal. Glucose of more than 200 mg/dL in a nonstressed, ambulatory subject supports the diagnosis of Diabetes Mellitus. PERFORMED BY: [address] [place] [address] PATHOLOGIST SYSTEMS SOFTWARE DESIGNER TATYANA ALLEN M.D. Performed By: #### GLULS ### # Point of Care testing , GLUCOSE POCT GLUCOMETERS Collected: 11/28/2024 11:11 AM Status: F Source: [facility] TYPE CODE TESTS RESULT OUT OF RANGE REFERENCE UNITS LAB GLUPOC Glucose Poc Glucometers 117 mg/dL Result Comment: Random Gluco se Reference Range is dependent on time and content of last meal. Glucose of more than 200 mg/dL in a nonstressed, ambulatory subject supports the diagnosis of Diabetes Mellitus. PERFORMED BY: [place] [address] PATHOLOGIST SYSTEMS SOFTWARE DESIGNER TATYANA ALLEN M.D. Performed By: #### GLULS ### # Point of Care testing , BASIC METABOLIC PANEL Collected: 11/28/2024 7:20 AM Status: F Source: [facility] TYPE CODE TESTS RESULT OUT OF RANGE REFERENCE UNITS LAB GLU Glucose 88 Normal 70-100 mg/dL Result Comment: Random Gluco se Reference Range is dependent on time and content of last meal. Glucose of more than 200 mg/dL in a nonstressed, ambulatory subject supports the diagnosis of Diabetes Mellitus. ADA recommended reference range LAB BUN Blood Urea Nitrogen 47 High 7-25 mg/dL LAB CREATT Creatinine 3.11 High 0.60-1.20 mg/dL LAB GFReNR Estimated GFR 15.055 LAB NA Sodium 134 Low 136-145 mmol/L LAB K Potassium 4.8 Normal 3.5-5.1 mmol/L LAB CL Chloride 99 Normal 98-107 mmol/L LAB CO2 Carbon Dioxide 31.4 High 21.0-31.0 mmol/L LAB GAP Anion Gap 8.4 Normal 6.0-15.0 LAB CA Calcium 8.8 Normal 8.6-10.3 mg/dL LAB CRCLPHA Creatinine Clr Calc Pharmacy 13.56 Result Comment: PERFORMED BY : [place] [address] PATHOLOGIST SYSTEMS SOFTWARE DESIGNER TATYANA ALLEN M.D. Performed By: #### BMP #### [address] [address] [place] GLUCOSE POCT GLUCOMETERS Collected: 11/28/2024 6:35 A M Status: F Source: [facility] TYPE CODE TESTS RESULT OUT OF RANGE REFERENCE UNITS LAB GLUPOC Glucose Poc Glucometers 122 mg/dL Result Comment: Random Gluco se Reference Range is dependent on time and content of last meal. Glucose of more than 200 mg/dL in a nonstressed, ambulatory subject supports the diagnosis of Diabetes Mellitus. PERFORMED BY: [address] [place] [address] PATHOLOGIST SYSTEMS SOFTWARE DESIGNER TATYANA ALLEN M.D. Performed By: #### GLULS ### # Point of Care testing , GLUCOSE POCT GLUCOMETERS Collected: 11/27/2024 8:20 P M Status: F Source: [facility] TYPE CODE TESTS RESULT OUT OF RANGE REFERENCE UNITS LAB GLUPOC Glucose Poc Glucometers 106 mg/dL Result Comment: Random Gluco se Reference Range is dependent on time and content of last meal. Glucose of more than 200 mg/dL in a nonstressed, ambulatory subject supports the diagnosis of Diabetes Mellitus. PERFORMED BY: [facility] [address] [facility] [place] [address] PATHOLOGIST SYSTEMS SOFTWARE DESIGNER TATYANA ALLEN M.D. Performed By: #### GLULS ### # Point of Care testing , GLUCOSE POCT GLUCOMETERS Collected: 11/27/2024 4:22 P M Status: F Source: [facility] TYPE CODE TESTS RESULT OUT OF RANGE REFERENCE UNITS LAB GLUPOC Glucose Poc Glucometers 151 mg/dL Result Comment: Random Gluco se Reference Range is dependent on time and content of last meal. Glucose of more than 200 mg/dL in a nonstressed, ambulatory subject supports the diagnosis of Diabetes Mellitus. PERFORMED BY: [facility] [address] [facility] [place] [address] PATHOLOGIST SYSTEMS SOFTWARE DESIGNER TATYANA ALLEN M.D. Performed By: #### GLULS ### # Point of Care testing , GLUCOSE POCT GLUCOMETERS Collected: 11/27/2024 11:23 AM Status: F Source: [facility] TYPE CODE TESTS RESULT OUT OF RANGE REFERENCE UNITS LAB GLUPOC Glucose Poc Glucometers 132 mg/dL Result Comment: Random Gluco se Reference Range is dependent on time and content of last meal. Glucose of more than 200 mg/dL in a nonstressed, ambulatory subject supports the diagnosis of Diabetes Mellitus. PERFORMED BY: [address] [place] [address] PATHOLOGIST SYSTEMS SOFTWARE DESIGNER TATYANA ALLEN M.D. Performed By: #### GLULS ### # Point of Care testing , GLUCOSE POCT GLUCOMETERS Collected: 11/27/2024 6:50 A M Status: F Source: [facility] TYPE CODE TESTS RESULT OUT OF RANGE REFERENCE UNITS LAB GLUPOC Glucose Poc Glucometers 98 mg/dL Result Comment: Random Gluco se Reference Range is dependent on time and content of last meal. Glucose of more than 200 mg/dL in a nonstressed, ambulatory subject supports the diagnosis of Diabetes Mellitus. LAB COMM1 Commemt1 Glu2: Cleaned Meter Result Comment: PERFORMED BY : [address] [place] [address] PATHOLOGIST SYSTEMS SOFTWARE DESIGNER TATYANA ALLEN M.D. Performed By: #### GLULS ### # Point of Care testing , GLUCOSE POCT GLUCOMETERS Collected: 11/27/2024 6:27 A M Status: F Source: [facility] TYPE CODE TESTS RESULT OUT OF RANGE REFERENCE UNITS LAB GLUPOC Glucose Poc Glucometers 84 mg/dL Result Comment: Random Gluco se Reference Range is dependent on time and content of last meal. Glucose of more than 200 mg/dL in a nonstressed, ambulatory subject supports the diagnosis of Diabetes Mellitus. LAB COMM1 Commemt1 Glu2: Cleaned Meter Result Comment: PERFORMED BY : [address] [place] [address] PATHOLOGIST SYSTEMS SOFTWARE DESIGNER TATYANA ALLEN M.D. Performed By: #### GLULS ### # Point of Care testing , BASIC METABOLIC PANEL Collected: 11/27/2024 6:21 AM Status: F Source: [facility] TYPE CODE TESTS RESULT OUT OF RANGE REFERENCE UNITS LAB GLU Glucose 70 Normal 70-100 mg/dL Result Comment: Random Gluco se Reference Range is dependent on time and content of last meal. Glucose of more than 200 mg/dL in a nonstressed, ambulatory subject supports the diagnosis of Diabetes Mellitus. ADA recommended reference range LAB BUN Blood Urea Nitrogen 43 High 7-25 mg/dL LAB CREATT Creatinine 3.20 High 0.60-1.20 mg/dL LAB GFReNR Estimated GFR 14.549 LAB NA Sodium 133 Low 136-145 mmol/L LAB K Potassium 4.8 Normal 3.5-5.1 mmol/L LAB CL Chloride 99 Normal 98-107 mmol/L LAB CO2 Carbon Dioxide 27.9 Normal 21.0-31.0 mmol/L LAB GAP Anion Gap 10.9 Normal 6.0-15.0 LAB CA Calcium 8.4 Low 8.6-10.3 mg/dL LAB CRCLPHA Creatinine Clr Calc Pharmacy 13.27 Result Comment: PERFORMED BY : [place] [address] PATHOLOGIST SYSTEMS SOFTWARE DESIGNER TATYANA ALLEN M.D. Performed By: #### BMP #### [address] GLUCOSE POCT GLUCOMETERS Collected: 11/26/2024 8:36 P M Status: F Source: [facility] TYPE CODE TESTS RESULT OUT OF RANGE REFERENCE UNITS LAB GLUPOC Glucose Poc Glucometers 105 mg/dL Result Comment: Random Gluco se Reference Range is dependent on time and content of last meal. Glucose of more than 200 mg/dL in a nonstressed, ambulatory subject supports the diagnosis of Diabetes Mellitus. PERFORMED BY: [place] [address] PATHOLOGIST SYSTEMS SOFTWARE DESIGNER TATYANA ALLEN M.D. Performed By: #### GLULS ### # Point of Care testing , GLUCOSE POCT GLUCOMETERS Collected: 11/26/2024 4:08 P M Status: F Source: [facility] TYPE CODE TESTS RESULT OUT OF RANGE REFERENCE UNITS LAB GLUPOC Glucose Poc Glucometers 143 mg/dL Result Comment: Random Gluco se Reference Range is dependent on time and content of last meal. Glucose of more than 200 mg/dL in a nonstressed, ambulatory subject supports the diagnosis of Diabetes Mellitus. PERFORMED BY: [place] [id number] PATHOLOGIST SYSTEMS SOFTWARE DESIGNER TATYANA ALLEN M.D. Performed By: #### GLULS ### # Point of Care testing , GLUCOSE POCT GLUCOMETERS Collected: 11/26/2024 11:12 AM Status: F Source: [facility] TYPE CODE TESTS RESULT OUT OF RANGE REFERENCE UNITS LAB GLUPOC Glucose Poc Glucometers 138 mg/dL Result Comment: Random Gluco se Reference Range is dependent on time and content of last meal. Glucose of more than 200 mg/dL in a nonstressed, ambulatory subject supports the diagnosis of Diabetes Mellitus. PERFORMED BY: [place] [id number] PATHOLOGIST SYSTEMS SOFTWARE DESIGNER TATYANA ALLEN M.D. Performed By: #### GLULS ### # Point of Care testing , RENAL FUNCTION PANEL Collected: 11/26/2024 9:55 AM S tatus: F Source: [facility] TYPE CODE TESTS RESULT OUT OF RANGE REFERENCE UNITS LAB GLU Glucose 116 High 70-100 mg/dL Result Comment: Random Gluco se Reference Range is dependent on time and content of last meal. Glucose of more than 200 mg/dL in a nonstressed, ambulatory subject supports the diagnosis of Diabetes Mellitus. ADA recommended reference range LAB BUN Blood Urea Nitrogen 39 High 7-25 mg/dL LAB CREATT Creatinine 3.26 High 0.60-1.20 mg/dL LAB GFReNR Estimated GFR 14.228 LAB NA Sodium 132 Low 136-145 mmol/L LAB K Potassium 4.0 Normal 3.5-5.1 mmol/L LAB CL Chloride 97 Low 98-107 mmol/L LAB CO2 Carbon Dioxide 29.9 Normal 21.0-31.0 mmol/L LAB GAP Anion Gap 9.1 Normal 6.0-15.0 LAB CA Calcium 8.5 Low 8.6-10.3 mg/dL LAB PHOS Phosphorus 3.8 Normal 2.5-4.5 mg/dL LAB ALB Albumin Level 2.8 Low 3.5-5.7 g/dL LAB CRCLPHA Creatinine Clr Calc Pharmacy 12.84 Result Comment: PERFORMED BY : [address] [address] PATHOLOGIST SYSTEMS SOFTWARE DESIGNER TATYANA ALLEN M.D. Performed By: #### RENAL ### # [address] [address] [facility] GLUCOSE POCT GLUCOMETERS Collected: 11/26/2024 6:26 A M Status: F Source: [facility] TYPE CODE TESTS RESULT OUT OF RANGE REFERENCE UNITS LAB GLUPOC Glucose Poc Glucometers 87 mg/dL Result Comment: Random Gluco se Reference Range is dependent on time and content of last meal. Glucose of more than 200 mg/dL in a nonstressed, ambulatory subject supports the diagnosis of Diabetes Mellitus. PERFORMED BY: [address] [place] [id number] PATHOLOGIST SYSTEMS SOFTWARE DESIGNER TATYANA ALLEN M.D. Performed By: #### GLULS ### # Point of Care testing , GLUCOSE POCT GLUCOMETERS Collected: 11/25/2024 8:30 P M Status: F Source: [facility] TYPE CODE TESTS RESULT OUT OF RANGE REFERENCE UNITS LAB GLUPOC Glucose Poc Glucometers 99 mg/dL Result Comment: Random Gluco se Reference Range is dependent on time and content of last meal. Glucose of more than 200 mg/dL in a nonstressed, ambulatory subject supports the diagnosis of Diabetes Mellitus. PERFORMED BY: [address] [address] PATHOLOGIST SYSTEMS SOFTWARE DESIGNER TATYANA ALLEN M.D. Performed By: #### GLULS ### # Point of Care testing , GLUCOSE POCT GLUCOMETERS Collected: 11/25/2024 4:07 P M Status: F Source: [facility] TYPE CODE TESTS RESULT OUT OF RANGE REFERENCE UNITS LAB GLUPOC Glucose Poc Glucometers 122 mg/dL Result Comment: Random Gluco se Reference Range is dependent on time and content of last meal. Glucose of more than 200 mg/dL in a nonstressed, ambulatory subject supports the diagnosis of Diabetes Mellitus. PERFORMED BY: [address] [place] [address] PATHOLOGIST SYSTEMS SOFTWARE DESIGNER TATYANA ALLEN M.D. Performed By: #### GLULS ### # Point of Care testing , GLUCOSE POCT GLUCOMETERS Collected: 11/25/2024 11:10 AM Status: F Source: [facility] TYPE CODE TESTS RESULT OUT OF RANGE REFERENCE UNITS LAB GLUPOC Glucose Poc Glucometers 149 mg/dL Result Comment: Random Gluco se Reference Range is dependent on time and content of last meal. Glucose of more than 200 mg/dL in a nonstressed, ambulatory subject supports the diagnosis of Diabetes Mellitus. PERFORMED BY: [facility] [place] [address] PATHOLOGIST SYSTEMS SOFTWARE DESIGNER TATYANA ALLEN M.D. Performed By: #### GLULS ### # Point of Care testing , COMPLETE BLOOD COUNT AUTO DIFF Collected: 11/25/2024 8:25 AM Status: F Source: [facility] TYPE CODE TESTS RESULT OUT OF RANGE REFERENCE UNITS LAB WBC White Blood Count 7.4 Normal 3.8-11.6 [CFU]/mL LAB UNWBC Uncorrected WBC 7.4 Normal 3.8-11.6 10*3/uL LAB RBC Red Blood Count 2.90 Low 3.60-5.00 10*6/u L LAB HGB Hemoglobin 9.1 Low 11.8-15.4 g/dL LAB HCT Hematocrit 27.8 Low 34.0-46.4 % LAB MCV Mean Corpuscular Volume 96.1 Normal 80-100 fL LAB MCH Mean Corpuscular Hemoglobin 31.6 Normal 24.7-34.3 pg LAB MCHC Mean Corpuscular HGB Conc 32.8 Normal 32.0-35.0 g/dL LAB RDW Red Cell Distribution Width 14.5 Normal 11.9-15.3 % LAB PLT Platelet Count 149 Low 150-450 10*3/uL LAB MPV Mean Platelet Volume 8.2 Normal 6.3-10.7 fL LAB NE% Neutrophils % (Auto) 75.0 . % LAB LY% Lymphocytes % (Auto) 15.7 . % LAB MO% Monocytes % (Auto) 6.4 . % LAB EO% Eosinophils % (Auto) 2.6 . % LAB BA% Basophils % (Auto) 0.3 . % LAB NRBC% NRBC% 0.0 Normal 0-0.5 /100{WBC} LAB NE# Neutrophils # (Auto) 5.5 Normal 1.8-7.7 10*3/uL LAB LY# Lymphocytes # (Auto) 1.2 Normal 1.00-4.8 10*3/uL LAB MO# Monocytes # (Auto) 0.5 Normal 0.0-0.8 10*3/uL LAB EO# Eosinophils # (Auto) 0.2 Normal 0.0-0.45 10*3/uL LAB BA# Basophils # (Auto) 0.0 Normal 0.0-0.2 10*3/uL Result Comment: PERFORMED BY : [address] [address] PATHOLOGIST SYSTEMS SOFTWARE DESIGNER TATYANA ALLEN M.D. Performed By: #### YANELIS GOMEZ #### [address] [address] [facility] RENAL FUNCTION PANEL Collected: 11/25/2024 8:25 AM S tatus: F Source: [facility] TYPE CODE TESTS RESULT OUT OF RANGE REFERENCE UNITS LAB GLU Glucose 90 Normal 70-100 mg/dL Result Comment: Random Gluco se Reference Range is dependent on time and content of last meal. Glucose of more than 200 mg/dL in a nonstressed, ambulatory subject supports the diagnosis of Diabetes Mellitus. ADA recommended reference range LAB BUN Blood Urea Nitrogen 35 High 7-25 mg/dL LAB CREATT Creatinine 3.00 High 0.60-1.20 mg/dL LAB GFReNR Estimated GFR 15.721 LAB NA Sodium 133 Low 136-145 mmol/L LAB K Potassium 4.5 Normal 3.5-5.1 mmol/L LAB CL Chloride 98 Normal 98-107 mmol/L LAB CO2 Carbon Dioxide 30.2 Normal 21.0-31.0 mmol/L LAB GAP Anion Gap 9.3 Normal 6.0-15.0 LAB CA Calcium 8.1 Low 8.6-10.3 mg/dL LAB PHOS Phosphorus 3.6 Normal 2.5-4.5 mg/dL LAB ALB Albumin Level 3.1 Low 3.5-5.7 g/dL LAB CRCLPHA Creatinine Clr Calc Pharmacy 14.03 Result Comment: PERFORMED BY : [address] [address] PATHOLOGIST SYSTEMS SOFTWARE DESIGNER TATYANA ALLEN M.D. Performed By: #### CBCYANELIS #### [address] [address] [facility] GLUCOSE POCT GLUCOMETERS Collected: 11/25/2024 6:47 A M Status: F Source: [facility] TYPE CODE TESTS RESULT OUT OF RANGE REFERENCE UNITS LAB GLUPOC Glucose Poc Glucometers 104 mg/dL Result Comment: Random Gluco se Reference Range is dependent on time and content of last meal. Glucose of more than 200 mg/dL in a nonstressed, ambulatory subject supports the diagnosis of Diabetes Mellitus. LAB COMM1 Commemt1 Glu2: Cleaned Meter Result Comment: PERFORMED BY : [address] [address] PATHOLOGIST SYSTEMS SOFTWARE DESIGNER TATYANA ALELN M.D. Performed By: #### GLULS ### # Point of Care testing , GLUCOSE POCT GLUCOMETERS Collected: 11/24/2024 9:12 P M Status: F Source: [facility] TYPE CODE TESTS RESULT OUT OF RANGE REFERENCE UNITS LAB GLUPOC Glucose Poc Glucometers 133 mg/dL Result Comment: Random Gluco se Reference Range is dependent on time and content of last meal. Glucose of more than 200 mg/dL in a nonstressed, ambulatory subject supports the diagnosis of Diabetes Mellitus. PERFORMED BY: [address] [address] PATHOLOGIST SYSTEMS SOFTWARE DESIGNER TATYANA ALLEN M.D. Performed By: #### GLULS ### # Point of Care testing , GLUCOSE POCT GLUCOMETERS Collected: 11/24/2024 4:03 P M Status: F Source: [facility] TYPE CODE TESTS RESULT OUT OF RANGE REFERENCE UNITS LAB GLUPOC Glucose Poc Glucometers 132 mg/dL Result Comment: Random Gluco se Reference Range is dependent on time and content of last meal. Glucose of more than 200 mg/dL in a nonstressed, ambulatory subject supports the diagnosis of Diabetes Mellitus. PERFORMED BY: [address] [address] PATHOLOGIST SYSTEMS SOFTWARE DESIGNER TATYANA ALLEN M.D. Performed By: #### GLULS ### # Point of Care testing , GLUCOSE POCT GLUCOMETERS Collected: 11/24/2024 11:14 AM Status: F Source: [facility] TYPE CODE TESTS RESULT OUT OF RANGE REFERENCE UNITS LAB GLUPOC Glucose Poc Glucometers 171 mg/dL Result Comment: Random Gluco se Reference Range is dependent on time and content of last meal. Glucose of more than 200 mg/dL in a nonstressed, ambulatory subject supports the diagnosis of Diabetes Mellitus. PERFORMED BY: [address] [address] PATHOLOGIST SYSTEMS SOFTWARE DESIGNER TATYANA ALLEN M.D. Performed By: #### GLULS ### # Point of Care testing , BASIC METABOLIC PANEL Collected: 2024 6:57 AM Status: F Source: [facility] TYPE CODE TESTS RESULT OUT OF RANGE REFERENCE UNITS LAB GLU Glucose 113 High 70-100 mg/dL Result Comment: Random Gluco se Reference Range is dependent on time and content of last meal. Glucose of more than 200 mg/dL in a nonstressed, ambulatory subject supports the diagnosis of Diabetes Mellitus. ADA recommended reference range LAB BUN Blood Urea Nitrogen 28 High 7-25 mg/dL LAB CREATT Creatinine 2.89 Decreased 0.60-1.20 mg/dL LAB GFReNR Estimated GFR 16.442 LAB NA Sodium 134 Low 136-145 mmol/L LAB K Potassium 4.0 Normal 3.5-5.1 mmol/L LAB CL Chloride 99 Normal 98-107 mmol/L LAB CO2 Carbon Dioxide 30.6 Normal 21.0-31.0 mmol/L LAB GAP Anion Gap 8.4 Normal 6.0-15.0 LAB CA Calcium 7.2 Low 8.6-10.3 mg/dL LAB CRCLPHA Creatinine Clr Calc Pharmacy 14.53 Result Comment: PERFORMED BY : [place] [id number] PATHOLOGIST SYSTEMS SOFTWARE DESIGNER TATYANA ALLEN M.D. Performed By: #### BMP #### [place] [id number] [place] GLUCOSE POCT GLUCOMETERS Collected: 11/24/2024 6:21 A M Status: F Source: [facility] TYPE CODE TESTS RESULT OUT OF RANGE REFERENCE UNITS LAB GLUPOC Glucose Poc Glucometers 113 mg/dL Result Comment: Random Gluco se Reference Range is dependent on time and content of last meal. Glucose of more than 200 mg/dL in a nonstressed, ambulatory subject supports the diagnosis of Diabetes Mellitus. LAB COMM1 Commemt1 Glu2: Cleaned Meter Result Comment: PERFORMED BY : [address] [place] [address] PATHOLOGIST SYSTEMS SOFTWARE DESIGNER TATYANA ALLEN M.D. Performed By: #### GLULS ### # Point of Care testing , GLUCOSE POCT GLUCOMETERS Collected: 11/23/2024 8:38 P M Status: F Source: [facility] TYPE CODE TESTS RESULT OUT OF RANGE REFERENCE UNITS LAB GLUPOC Glucose Poc Glucometers 168 mg/dL Result Comment: Random Gluco se Reference Range is dependent on time and content of last meal. Glucose of more than 200 mg/dL in a nonstressed, ambulatory subject supports the diagnosis of Diabetes Mellitus. LAB COMM1 Commemt1 Glu2: Cleaned Meter Result Comment: PERFORMED BY : [address] [place] [address] PATHOLOGIST SYSTEMS SOFTWARE DESIGNER TATYANA ALLEN M.D. Performed By: #### GLULS ### # Point of Care testing , GLUCOSE POCT GLUCOMETERS Collected: 11/23/2024 4:46 P M Status: F Source: [facility] TYPE CODE TESTS RESULT OUT OF RANGE REFERENCE UNITS LAB GLUPOC Glucose Poc Glucometers 102 mg/dL Result Comment: Random Gluco se Reference Range is dependent on time and content of last meal. Glucose of more than 200 mg/dL in a nonstressed, ambulatory subject supports the diagnosis of Diabetes Mellitus. PERFORMED BY: [place] [id number] PATHOLOGIST SYSTEMS SOFTWARE DESIGNER TATYANA ALLEN M.D. Performed By: #### GLULS ### # Point of Care testing , GLUCOSE POCT GLUCOMETERS Collected: 11/23/2024 8:59 A M Status: F Source: [facility] TYPE CODE TESTS RESULT OUT OF RANGE REFERENCE UNITS LAB GLUPOC Glucose Poc Glucometers 105 mg/dL Result Comment: Random Gluco se Reference Range is dependent on time and content of last meal. Glucose of more than 200 mg/dL in a nonstressed, ambulatory subject supports the diagnosis of Diabetes Mellitus. PERFORMED BY: [address] [address] PATHOLOGIST SYSTEMS SOFTWARE DESIGNER TATYANA ALLEN M.D. Performed By: #### GLULS ### # Point of Care testing , ARTERIAL BLOOD GAS Collected: 11/23/2024 4:57 AM Sta tus: F Source: [facility] TYPE CODE TESTS RESULT OUT OF RANGE REFERENCE UNITS LAB ARTPH ABG PH 7.36 Normal 7.35-7.45 LAB ARTPCO2 ABG PCO2 52.2 High Off Scale 35.0-45.0 mm[Hg] LAB ARTPO2 ABG PO2 97.0 Normal 80.0-100.0 mm[Hg] LAB ARTHCO3 ABG HCO3 28.8 Normal 23.0-29.0 mmol/L LAB ARTBE ABG Base Excess 2.7 Normal -3.0-3.0 mmol/L LAB [id number] ABG Oxygen Saturation 97.3 Normal 95.0-100.0 % LAB OHFM2MI ABG Oxygen Content 6.0 Low 6.6-9.7 mmol/L LAB ARTTCO2 ABG TCO2 30.4 High 23.0-27.0 mmol/L LAB ARTFIO2 ABG Frac Inspired O2 45 % LAB VBDRAW VBG Draw Site Right Radial LAB RESPCRIT Respiratory Critical Result Comment: Critical Christina ue called on: 11/23/2024 at 05:01 PERFORMED BY: [facility] [address] [place] [address] PATHOLOGIST SYSTEMS SOFTWARE DESIGNER TATYANA ALLEN M.D. Performed By: #### ABG #### Point of Care testing , BASIC METABOLIC PANEL Collected: 2024 4:00 AM Status: F Source: [facility] TYPE CODE TESTS RESULT OUT OF RANGE REFERENCE UNITS LAB GLU Glucose 99 Normal 70-100 mg/dL Result Comment: Random Gluco se Reference Range is dependent on time and content of last meal. Glucose of more than 200 mg/dL in a nonstressed, ambulatory subject supports the diagnosis of Diabetes Mellitus. ADA recommended reference range LAB BUN Blood Urea Nitrogen 44 Decreased 7-25 mg/dL LAB CREATT Creatinine 3.46 Decreased 0.60-1.20 mg/dL LAB GFReNR Estimated GFR 13.247 LAB NA Sodium 138 Normal 136-145 mmol/L LAB K Potassium 5.0 Normal 3.5-5.1 mmol/L LAB CL Chloride 101 Normal 98-107 mmol/L LAB CO2 Carbon Dioxide 30.5 Normal 21.0-31.0 mmol/L LAB GAP Anion Gap 11.5 Normal 6.0-15.0 LAB CA Calcium 6.9 Low 8.6-10.3 mg/dL LAB CRCLPHA Creatinine Clr Calc Pharmacy 12.17 Result Comment: PERFORMED BY : [place] [address] PATHOLOGIST SYSTEMS SOFTWARE DESIGNER TATYANA ALLEN M.D. Performed By: #### BMP #### [address] COMPLETE BLOOD COUNT AUTO DIFF Collected: 11/23/2024 4:00 AM Status: F Source: [facility] TYPE CODE TESTS RESULT OUT OF RANGE REFERENCE UNITS LAB WBC White Blood Count 5.9 Normal 3.8-11.6 [CFU]/mL LAB UNWBC Uncorrected WBC 5.9 Normal 3.8-11.6 10*3/uL LAB RBC Red Blood Count 2.67 Low 3.60-5.00 10*6/u L LAB HGB Hemoglobin 8.5 Low 11.8-15.4 g/dL LAB HCT Hematocrit 25.8 Low 34.0-46.4 % LAB MCV Mean Corpuscular Volume 96.4 Normal 80-100 fL LAB MCH Mean Corpuscular Hemoglobin 31.9 Normal 24.7-34.3 pg LAB MCHC Mean Corpuscular HGB Conc 33.0 Normal 32.0-35.0 g/dL LAB RDW Red Cell Distribution Width 14.3 Normal 11.9-15.3 % LAB PLT Platelet Count 140 Low 150-450 10*3/uL LAB MPV Mean Platelet Volume 7.7 Normal 6.3-10.7 fL LAB NE% Neutrophils % (Auto) 86.5 . % LAB LY% Lymphocytes % (Auto) 9.2 . % LAB MO% Monocytes % (Auto) 4.0 . % LAB EO% Eosinophils % (Auto) 0.1 . % LAB BA% Basophils % (Auto) 0.2 . % LAB NRBC% NRBC% 0.1 Normal 0-0.5 /100{WBC} LAB NE# Neutrophils # (Auto) 5.1 Normal 1.8-7.7 10*3/uL LAB LY# Lymphocytes # (Auto) 0.5 Low 1.00-4.8 10*3/uL LAB MO# Monocytes # (Auto) 0.2 Normal 0.0-0.8 10*3/uL LAB EO# Eosinophils # (Auto) 0.0 Normal 0.0-0.45 10*3/uL LAB BA# Basophils # (Auto) 0.0 Normal 0.0-0.2 10*3/uL Result Comment: PERFORMED BY : [place] [address] PATHOLOGIST SYSTEMS SOFTWARE DESIGNER TATYANA ALLEN M.D. Performed By: #### CBC #### [address] GLUCOSE POCT GLUCOMETERS Collected: 11/22/2024 8:57 P M Status: F Source: [facility] TYPE CODE TESTS RESULT OUT OF RANGE REFERENCE UNITS LAB GLUPOC Glucose Poc Glucometers 115 mg/dL Result Comment: Random Gluco se Reference Range is dependent on time and content of last meal. Glucose of more than 200 mg/dL in a nonstressed, ambulatory subject supports the diagnosis of Diabetes Mellitus. PERFORMED BY: [place] [address] PATHOLOGIST SYSTEMS SOFTWARE DESIGNER TATYANA ALLEN M.D. Performed By: #### GLULS ### # Point of Care testing , GLUCOSE POCT GLUCOMETERS Collected: 11/22/2024 5:22 P M Status: F Source: [facility] TYPE CODE TESTS RESULT OUT OF RANGE REFERENCE UNITS LAB GLUPOC Glucose Poc Glucometers 114 mg/dL Result Comment: Random Gluco se Reference Range is dependent on time and content of last meal. Glucose of more than 200 mg/dL in a nonstressed, ambulatory subject supports the diagnosis of Diabetes Mellitus. PERFORMED BY: [place] [address] PATHOLOGIST SYSTEMS SOFTWARE DESIGNER TATYANA ALLEN M.D. Performed By: #### GLULS ### # Point of Care testing , GLUCOSE POCT GLUCOMETERS Collected: 11/22/2024 1:16 P M Status: F Source: [facility] TYPE CODE TESTS RESULT OUT OF RANGE REFERENCE UNITS LAB GLUPOC Glucose Poc Glucometers 142 mg/dL Result Comment: Random Gluco se Reference Range is dependent on time and content of last meal. Glucose of more than 200 mg/dL in a nonstressed, ambulatory subject supports the diagnosis of Diabetes Mellitus. PERFORMED BY: [place] [id number] PATHOLOGIST SYSTEMS SOFTWARE DESIGNER TATYANA ALLEN M.D. Performed By: #### GLULS ### # Point of Care testing , BASIC METABOLIC PANEL Collected: 2024 11:50 AM Status: F Source: [facility] TYPE CODE TESTS RESULT OUT OF RANGE REFERENCE UNITS LAB GLU Glucose 134 High 70-100 mg/dL Result Comment: Random Gluco se Reference Range is dependent on time and content of last meal. Glucose of more than 200 mg/dL in a nonstressed, ambulatory subject supports the diagnosis of Diabetes Mellitus. ADA recommended reference range LAB BUN Blood Urea Nitrogen 80 High 7-25 mg/dL LAB CREATT Creatinine 4.82 High 0.60-1.20 mg/dL LAB GFReNR Estimated GFR 8.899 LAB NA Sodium 140 Normal 136-145 mmol/L LAB K Potassium 5.8 High 3.5-5.1 mmol/L Result Comment: Hemolysis is present at a level that could interfere with the result. Contact lab if redraw is required LAB CL Chloride 102 Normal 98-107 mmol/L LAB CO2 Carbon Dioxide 30.0 Normal 21.0-31.0 mmol/L LAB GAP Anion Gap 13.8 Normal 6.0-15.0 LAB CA Calcium 6.8 Low 8.6-10.3 mg/dL LAB CRCLPHA Creatinine Clr Calc Pharmacy 8.73 Result Comment: PERFORMED BY : [place] [id number] PATHOLOGIST SYSTEMS SOFTWARE DESIGNER TATYANA ALLEN M.D. Performed By: #### BMP #### [place] [id number] [facility] ECH ECHO TRANSTHORACIC Observed: 025 9:28 AM Status: COMPLETED Source: [facility] [place] Main [place] [address] [place], [place] [id number] Echocardiogram Signed Patient: Martin Hagen MR#: [id number] : 1950 Acct:[id number] Age/Sex: 73 / F ADM Date: 11/21/24 Loc: Room: 5Q3295-7 Type: ADM IN Attending Dr: Christiano Alberto MD Ordering Provider: Christiano Alberto MD Date of Service: 11/22/24 ECH/ECH echo transthoracic: chf Copies to: MD Gama Posey MD Height: 60 in Weight: 152 lb Performed By: Colt Mendez RDCS, RVT BSA: 1.7 m2 BP: 108/63 mmHg HR: 91 Reason For Study: chf History: Atrial fibrillation, CHF, COPD, DM, Hypertension, CPAP, Sleep Apnea, Hyperlipidemia, Smoker Interpretation Summary Ejection Fraction = 60-65%. Mild concentric left ventricular hypertrophy. The left atrium appears severely dilated. The right atrium is mildly dilated. Moderate to severe valvular aortic stenosis. The aortic valve maximum pressure gradient is 55 mmHg. The aortic valve mean gradient is 30 mmHg. The aortic valve area is calculated to be .87 cm2. There is mild mitral regurgitation. There is mild tricuspid regurgitation. The right ventricular systolic pressure is 58 mmHg. Right ventricular systolic pressure is consistent with moderate to severe pulmonary hypertension. The patient was in atrial fibrillation through out the study. When compared to previous study. The aortic valve gradient has increased while the pulmonary pressure has dropped from 84 to 58 mmHg. Procedure/Quality: A two-dimensional transthoracic echocardiogram with color flow, Doppler and injection of contrast agent Definity was performed. A two- dimensional transthoracic echocardiogram with color flow and Doppler was performed. Left Ventricle: The left ventricular size is normal. Mild concentric left ventricular hypertrophy. Ejection Fraction = 60-65%. The left ventricular wall motion is normal. Left Atrium: The left atrium appears severely dilated. The atrial septum appears normal. Right Atrium: The right atrium is mildly dilated. Right Ventricle: The right ventricular size, thickness and function are normal. Aortic Valve: The aortic valve is moderately calcified. Moderate to severe valvular aortic stenosis. The aortic valve maximum pressure gradient is 55 mmHg. The aortic valve mean gradient is 30 mmHg. The aortic valve area is calculated to be .87 cm2. No aortic regurgitation is present. Mitral Valve: The mitral valve is mildly sclerotic. There is mild mitral regurgitation. Tricuspid Valve: The tricuspid valve is normal in structure and function. There is mild tricuspid regurgitation. The right ventricular systolic pressure is 58 mmHg. Right ventricular systolic pressure is consistent with moderate to severe pulmonary hypertension. Pulmonic Valve: The pulmonic valve is normal in structure and function. Arteries: The aortic root is normal size. Pericardium/Pleura: No pericardial effusion seen. There is no pleural effusion. IVC/Hepatic Veins: Moderately dilated inferior vena cava. Miscellaneous: The patient was in atrial fibrillation through out the study. Measurements with Normals IVSd: 1.3 cm (0.7-1.1 cm)LVIDd: 3.4 cm (3.7-5.4 cm) LVPWd: 1.3 cm (0.7-1.1 cm)LVIDs: 2.1 cm (2.3-3.6 cm) LA dimension: 5.1 cm (2.3-4.0 cm)Ao root diam: 2.8 cm(2.0-3.6 cm) asc Aorta Diam: 3.2 cm(2.1-3.4cm) Doppler with Normals RVSP(TR): 58.1 mmHg (18-35mmHg) LV V1 max: 113.0 cm/sec(0.7-1.7m/s)MV E max amrit: 163.0 cm/sec(0.8-1.3m/s) MMode/2D Measurements Calculations TAPSE: 1.3 cm FS: 38.2 % Ao root area: LVOT diam: 1.9 cm RV S Amrit: EDV(Teich): 47.4 ml 6.2 cm2 LVOT area: 2.8 cm2 9.5 cm/sec ESV(Teich): 14.4 ml EF(Teich): 69.6 % __ LVLd ap4: 6.5 cm SV(MOD-sp4): 44.6 ml LAV(MOD-sp4): LA A2 area: 25.0 cm2 EDV(MOD-sp4): 70.2 ml 68.8 ml LAV(MOD-sp2): LA A4 area: 22.9 cm2 LVLs ap4: 5.6 cm 83.7 ml LA length (vol): ESV(MOD-sp4): 6.0 cm 24.2 ml LA vol: 81.5 ml EF(MOD-sp4): LA vol index: 64.8 % 49.1 ml/m2 __ RA Volume: 38.5 mlRA Volume Index: 23.2 ml/m2 Doppler Measurements Calculations MV dec time: MV V2 max: MV dec slope: Ao V2 max: 0.30 sec 192.0 cm/sec 370.0 cm/sec MV max P.3 cm/sec2 Ao max P.0 mmHg 54.8 mmHg MV V2 mean: Ao mean P.0 cm/sec 30.0 mmHg MV mean PG: Ao V2 mean: 5.0 mmHg 255.0 cm/sec MV V2 VTI: 38.7 cm Ao V2 VTI: 74.5 cm MVA(VTI): 1.8 cm2 JUDITH(I,D): 0.91 cm2 JUDITH(V,D): 0.87 cm2 __ LV V1 max PG: MR max amrit: TV max P.0 mmHg TR max amrit: 5.1 mmHg 522.0 cm/sec 354.0 cm/sec LV V1 mean PG: MR max PG: TR max P.0 mmHg 109.0 mmHg 50.1 mmHg LV V1 mean: RAP systole: 77.1 cm/sec 8.0 mmHg LV V1 VTI: 24.0 cm Transcribed By: SCV Performed At: 11/22/24 0928 Signed By: Gama Hardy MD 11/22/24 1609 OVA AND PARASITE PANEL Collected: 11/22/2024 9:15 AM Status: F Source: [facility] TYPE CODE TESTS RESULT OUT OF RANGE REFERENCE UNITS LAB ENTP GIARD BARBA Giardia lamblia Negative Negative LAB ENTP CRYPTOSPOR Cryptosporidium (C.hominis+par Negative Negative Result Comment: Cryptosporid ium test includes C. hominis and C. parvum. LAB ENTP ENT HISTOL Entamoeba histolytica Negative Negative Result Comment: Testing perf ormed by RT-PCR PERFORMED BY: [place] [address] PATHOLOGIST SYSTEMS SOFTWARE DESIGNER TATYANA ALLEN M.D. Performed By: #### OVP #### [place] [id number] [facility] CLOSTRIDIUM DIFFICILE Collected: 11/22/2024 9:15 AM Status: F Source: [facility] Order Comment: > or = to 3 l oose/watery stools in the last 24 HRS? Y Is patient on promotility agents or tube feeding? N TYPE CODE TESTS RESULT OUT OF RANGE REFERENCE UNITS LAB CDTRES Clostridium Difficile Negative Negative Result Comment: Testing perf ormed by RT-PCR PERFORMED BY: [place] [address] PATHOLOGIST SYSTEMS SOFTWARE DESIGNER TATYANA ALLEN M.D. Performed By: #### CDT #### [place] [id number] [facility] STOOL BACTERIAL PANEL Collected: 11/22/2024 9:15 AM Status: F Source: [facility] TYPE CODE TESTS RESULT OUT OF RANGE REFERENCE UNITS LAB ENTB SHIGELLA S Shigella Species Negative Negative Result Comment: Shigella sp. test includes Shigella species and Enteroinvasive E. coli (EIEC). LAB ENTB SHIGA TOX Shiga Toxin (E coli O157+oth) Negative Negative LAB ENTB CAMPYLOBAC Campylobacter Negative Negative Result Comment: Campylobacte r test includes C. jejuni and C. coli. LAB ENTB SALMON SPE Salmonella Species Negative Negative Result Comment: Testing perf ormed by RT-PCR PERFORMED BY: [place] [address] PATHOLOGIST SYSTEMS SOFTWARE DESIGNER TATYANA ALLEN M.D. Performed By: #### ENT BACT PANEL #### [place] [id number] [facility] CT ABDOMEN PELVIS WO CON Observed: 11/22 8:17 AM Status: COMPLETED Source: [facility] [place] Main [place] [address] [place] [address] CT Scan Report Signed Patient: Martin Hagen MR#: [id number] 54 : 1950 Acct:[id number] Age/Sex: 73 / F ADM Date: 11/21/24 Loc: Room: [address] [place] [address] Type: ADM IN Attending Dr: Christiano Alberto MD Copies to: MD Sylvia Posey MD Ordering Provider: Sylvia Orellana MD Date of Service: 11/21/24 CT/CT abdomen pelvis wo con: r/o intraabdominal infectious process ([id number]) CT/CT chest wo con: r/o infiltrates, assess effusion, CHF CT CHEST, ABDOMEN AND PELVIS WITHOUT INTRAVENOUS CONTRAST: CLINICAL HISTORY: Rule out abdominal infection/infiltration, effusions and CHF COMPARISON: Chest x-ray 11/21/2024 TECHNIQUE: TECHNIQUE: Spiral images were obtained through the chest, abdomen and pelvis wihout the administration of IV contrast. This CT exam was performed using one or more following dose reduction techniques: Automated exposure control, adjustment of the mA and/or kV according to patient size, or use of iterative reconstruction technique. FINDINGS: CT chest: Mediastinum:Cardiomegaly Coronary artery disease. Mitral valve annulus calcifications. No significant pericardial effusion. No bulky mediastinal or hilar adenopathy identified. Lungs:Moderate right small left effusion. Bibasilar consolidative changes likely due to atelectasis. Interstitial edema involving lungs greatest right. Emphysematous changes. Soft tissues/Bones: Vertebral plana deformity T5 with retropulsion into the canal 6 mm. Otherwise multilevel degenerative change. Diffuse anasarca. CT abdomen and pelvis: Organs:Bilateral adrenal nodules versus masses right nodule measuring 5 cm in greatest dimension. Left measuring 3.0 x 1.8 cm in size.[Cholecystectomy. Liver, spleen, kidneys pancreas are unremarkable. GI: Mild retained stool. No bowel obstruction. Moderate sigmoid colonic diverticulosis. Appendix not visualized. No CT findings acute appendicitis. Pelvis:[Kim catheter balloon within the collapsed bladder. Heterogeneous uterus with multifocal calcification suggests fibroids. No definite adnexal mass.] Peritoneum/Retroperitoneum:Perihepatic or perisplenic fluid. Diffuse vascular congestion and likely severe spacing. No free air.[ Abd wall/Bones:Multilevel degenerative changes of the lumbar spine. Inferior endplate deformity L1 likely chronic.[Posterior changes right femur partially visualized. CT/CT chest wo con IMPRESSION: Chest: Bilateral effusions and cardiomegaly and interstitial edema likely due to CHF. No definite airspace disease. Vertebral plana deformity T5 with retropulsion into the canal [address] pelvis abdomen: Bilateral adrenal nodule/mass on up to 5 cm in size. Consider dedicated renal protocol CT or MRI if there are no comparisons. Colonic diverticulosis. Diffuse anasarca. Mild ascites. Impression dictated by: Jeffery Ortiz M.D. 11/22/2024 8:27 AM Dictation Location: [facility]- Transcribed By: [facility] 11/22/24826 Dictated By: Jeffery Ortiz MD 11/22/24816 Signed By: <Electronically signed by Jeffery Ortiz MD in OV> 11/22/24826 COMPLETE BLOOD COUNT AUTO DIFF Collected: 11/22/2024 6:41 AM Status: F Source: [facility] TYPE CODE TESTS RESULT OUT OF RANGE REFERENCE UNITS LAB WBC White Blood Count 5.1 Normal 3.8-11.6 [CFU]/mL LAB UNWBC Uncorrected WBC 5.1 Normal 3.8-11.6 10*3/uL LAB RBC Red Blood Count 2.98 Low 3.60-5.00 10*6/u L LAB HGB Hemoglobin 9.3 Low 11.8-15.4 g/dL LAB HCT Hematocrit 28.7 Low 34.0-46.4 % LAB MCV Mean Corpuscular Volume 96.2 Normal 80-100 fL LAB MCH Mean Corpuscular Hemoglobin 31.0 Normal 24.7-34.3 pg LAB MCHC Mean Corpuscular HGB Conc 32.3 Normal 32.0-35.0 g/dL LAB RDW Red Cell Distribution Width 15.2 Normal 11.9-15.3 % LAB PLT Platelet Count 146 Low 150-450 10*3/uL LAB MPV Mean Platelet Volume 8.3 Normal 6.3-10.7 fL LAB NE% Neutrophils % (Auto) 85.5 . % LAB LY% Lymphocytes % (Auto) 10.7 . % LAB MO% Monocytes % (Auto) 3.5 . % LAB EO% Eosinophils % (Auto) 0.1 . % LAB BA% Basophils % (Auto) 0.2 . % LAB NRBC% NRBC% 0.0 Normal 0-0.5 /100{WBC} LAB NE# Neutrophils # (Auto) 4.3 Normal 1.8-7.7 10*3/uL LAB LY# Lymphocytes # (Auto) 0.5 Low 1.00-4.8 10*3/uL LAB MO# Monocytes # (Auto) 0.2 Normal 0.0-0.8 10*3/uL LAB EO# Eosinophils # (Auto) 0.0 Normal 0.0-0.45 10*3/uL LAB BA# Basophils # (Auto) 0.0 Normal 0.0-0.2 10*3/uL Result Comment: PERFORMED BY : [place] [address] PATHOLOGIST SYSTEMS SOFTWARE DESIGNER TATYANA ALLEN M.D. Performed By: #### CBC, MG, CMP, PT, PTT, PHOS #### [address] [address] [facility] PROTHROMBIN TIME INR Collected: 11/22/2024 6:41 AM S tatus: F Source: [facility] TYPE CODE TESTS RESULT OUT OF RANGE REFERENCE UNITS LAB R PT Prothrombin Time 14.8 High 9.0-12.9 s Result Comment: A hematocrit value greater than 55% may lead to inaccurate results in coagulation testing. Patients having hematocrit values >55% require a special collection tube for coagulation studies. Please contact the laboratory at [phone] for redraw instructions. LAB INR INR 1.3 Result Comment: INR Therapeu tic Range A) Pre- and Peroperative OAT started [...] valves: 3 - 4.5 Performed By: #### CBC, MG, CMP, PT, PTT, PHOS #### [address] [address] [facility] PARTIAL THROMBOPLASTIN TIME Collected: 11/22/2024 6:4 1 AM Status: F Source: [facility] TYPE CODE TESTS RESULT OUT OF RANGE REFERENCE UNITS LAB PTT Partial Thromboplastin Time 29.1 Normal 25.1-36.5 s Result Comment: A hematocrit value greater than 55% may lead to inaccurate results in coagulation testing. Patients having hematocrit values >55% require a special collection tube for coagulation studies. Please contact the laboratory at [phone] for redraw instructions. PERFORMED BY: [facility] [address] [place] [id number] PATHOLOGIST SYSTEMS SOFTWARE DESIGNER TATYANA ALLEN M.D. Performed By: #### CBC, MG, CMP, PT, PTT, PHOS #### [facility] [address] [place] [address] [facility] COMPREHENSIVE METABOLIC PANEL Collected: 11/22/2024 6 :41 AM Status: F Source: [facility] TYPE CODE TESTS RESULT OUT OF RANGE REFERENCE UNITS LAB GLU Glucose 182 High 70-100 mg/dL Result Comment: Random Gluco se Reference Range is dependent on time and content of last meal. Glucose of more than 200 mg/dL in a nonstressed, ambulatory subject supports the diagnosis of Diabetes Mellitus. ADA recommended reference range LAB BUN Blood Urea Nitrogen 83 High 7-25 mg/d L LAB CREATT Creatinine 5.09 High 0.60-1.20 mg/dL LAB GFReNR Estimated GFR 8.336 LAB NA Sodium 138 Normal 136-145 mmol/L LAB K Potassium 6.7 High Off Scale 3.5-5.1 mmol/L Result Comment: Critical Res ult Called to and read back by: DAI NORMAN at: 11/22/2024 07:23:32 by:NICO LAB CL Chloride 104 Normal 98-107 mmol/L LAB CO2 Carbon Dioxide 28.0 Normal 21.0-31.0 mmol/L LAB GAP Anion Gap 12.7 Normal 6.0-15.0 LAB CA Calcium 6.6 Low 8.6-10.3 mg/dL LAB TP Total Protein 5.0 Low 6.4-8.9 g/dL LAB ALB Albumin Level 2.6 Low 3.5-5.7 g/dL LAB GLOB Globulin 2.4 g/dL LAB AGRATIO Albumin/Globulin Ratio 1.1 LAB BILIT Bilirubin,Total 0.3 Normal 0.3-1.0 mg/dL LAB AST Aspartate Amino Transferase 15 Normal 13-39 U/L LAB ALT Alanine Aminotransferase 11 Normal 7-52 U/L LAB ALP Alkaline Phosphatase 46 Normal 34-104 U/L LAB CRCLPHA Creatinine Clr C alc Pharmacy 8.27 Performed By: #### CBC, MG, CMP, PT, PTT, PHOS #### [facility] [address] PHOSPHORUS Collected: 6:41 AM Status: F Source: [facility] TYPE CODE TESTS RESULT OUT OF RANGE REFERENCE UNITS LAB PHOS Phosphorus 5.9 High 2.5-4.5 mg/dL Performed By: #### CBC, MG, CMP, PT, PTT, PHOS #### [address] MAGNESIUM Collected: 6:41 AM Status: F Source: [facility] TYPE CODE TESTS RESULT OUT OF RANGE REFERENCE UNITS LAB MG Magnesium 2.1 Normal 1.9-2.7 mg/dL Result Comment: PERFORMED BY : [place] [address] PATHOLOGIST SYSTEMS SOFTWARE DESIGNER TATYANA ALLEN M.D. Performed By: #### CBC, MG, CMP, PT, PTT, PHOS #### [address] ARTERIAL BLOOD GAS Collected: 11/22/2024 3:08 AM Sta tus: F Source: [facility] TYPE CODE TESTS RESULT OUT OF RANGE REFERENCE UNITS LAB ARTPH ABG PH 7.26 Low 7.35-7.45 LAB ARTPCO2 ABG PCO2 48.6 High 35.0-45.0 mm[Hg] LAB ARTPO2 ABG PO2 90.3 Normal 80.0-100.0 mm[Hg] LAB ARTHCO3 ABG HCO3 21.5 Low 23.0-29.0 mmol/L LAB ARTBE ABG Base Excess -5.5 Low -3.0-3.0 mmol/L LAB [id number] ABG Oxygen Saturation 96.1 Normal 95.0-100.0 % LAB [id number] ABG Oxygen Content 6.0 Low 6.6-9.7 mmol/L LAB ARTTCO2 ABG TCO2 23.0 Normal 23.0-27.0 mmol/L LAB ARTFIO2 ABG Frac Inspired O2 35 % LAB ARTPRESUP ABG Pressure Support 15.0 LAB VBDRAW VBG Draw Site Right Radial LAB OXYDEV Oxygen Device BiPAP LAB CPAP CPAP 5.0 LAB RESPCRIT Respiratory Critical Result Comment: Critical Christina ue called on: 11/22/2024 at 03:10 PERFORMED BY: [place] [address] PATHOLOGIST SYSTEMS SOFTWARE DESIGNER TATYANA ALLEN M.D. Performed By: #### ABG #### Point of Care testing , SODIUM, URINE (RANDOM) Collected: 11/22 12:35 AM Status: F Source: [facility] TYPE CODE TESTS RESULT OUT OF RANGE REFERENCE UNITS LAB GABRIELA Sodium, Urine (Random) 21 mmol/L Result Comment: No reference range established PERFORMED BY: [place] [address] PATHOLOGIST SYSTEMS SOFTWARE DESIGNER TATYANA ALLEN M.D. Performed By: #### GABRIELA #### [place] [id number] [facility] RESPIRATORY (UPPER) PANEL, PCR Observed: 11/22/2024 12:35 AM Status: F Source: [facility] Adenovirus Not detected Bordetella parapertussis Not detected Chlamydia pneumoniae Not detected Coronavirus 229E Not detected Coronavirus HKU1 Not detected Coronavirus NL63 Not detected Coronavirus OC43 Not detected Influenza A Not detected Influenza B Not detected Human Metapneumovirus Not detected Mycoplasma pneumoniae Not detected Parainfluenza Virus 1 Not detected Parainfluenza Virus 2 Not detected Parainfluenza Virus 3 Not detected Parainfluenza Virus 4 Not detected Bordetella pertussis-ptxP Not detected Human Rhino/Enterovirus Not detected Resp. Syncytial Virus Not detected COVID-19 Detected/Not Detected Not detected Blank Space FLUA TEST INCLUDES Influenza A tests for the following clinically FLUA TEST INCLUDES significant subtypes: FLUA TEST INCLUDES - Influenza A FLUA TEST INCLUDES - Influenza A H1 FLUA TEST INCLUDES - Influenza A H1 2009 FLUA TEST INCLUDES - Influenza A H3 Blank Space PERFORMED BY: [place] [address] PATHOLOGIST SYSTEMS SOFTWARE DESIGNER TATYANA ALLEN M.D. Performed By: #### RESP PANE L UPP., BIOFIRECOVNOTDE #### [address] BIOFIRE NOT DETECTED Collected: 12:35 AM Status: F Source: [facility] TYPE CODE TESTS RESULT OUT OF RANGE REFERENCE UNITS LAB BIOFIRECOVNOTDE BioFire Not Detected Not Detected Not Detecte Result Comment: This is a du plicate RP2.1 COVID (PCR) result to be used for statistical tracking purpose only. PERFORMED BY: [place] [address] PATHOLOGIST SYSTEMS SOFTWARE DESIGNER TATYANA ALLEN M.D. Performed By: #### RESP PANE L UPP., BIOFIRECOVNOTDE #### [place] [id number] [facility] POTASSIUM, URINE (RANDOM) Collected: 12:35 AM Status: F Source: [facility] TYPE CODE TESTS RESULT OUT OF RANGE REFERENCE UNITS LAB UK Potassium, Urine (Random) 36.5 mmol/L Result Comment: No reference range established PERFORMED BY: [place] [address] PATHOLOGIST SYSTEMS SOFTWARE DESIGNER TATYANA ALLEN M.D. Performed By: #### [place] #### [place] [address] [place] DIPSTICK AND MICROSCOPIC Collected: 12:35 AM Status: F Source: [facility] Order Comment: Name Collecti on Type:: Kim Catheter TYPE CODE TESTS RESULT OUT OF RANGE REFERENCE UNITS LAB UCOL Color,Urine Yellow Yellow LAB UAPP Appearance,Ur ine Cloudy Abnormal Alert Clear LAB USG Specificy [place],Urine 1.018 Normal 1.001-1.030 LAB UPH pH,Urine 6.0 Normal 5.0-9.0 LAB ULE Leukocyte Esterase,Urin e 4+ Negative LAB UNIT Nitrite,Urine Negative Negative LAB UPRO Protein,Urine 50 Negative mg/dL LAB UGL Glucose,Urine (UA) Normal Normal mg/dL LAB UKET Ketones,Urine Negative Negative LAB UURO Urobilinogen, Urine Normal Normal mg/dL LAB UBIL Bilirubin,Uri ne Negative Negative LAB UBLD Occult Blood,Urine 1+ Negative Result Comment: PERFORMED BY : [place] [address] PATHOLOGIST SYSTEMS SOFTWARE DESIGNER TATYANA ALLEN M.D. LAB URBC RBC,Urine 10-19 0-4 [HPF] LAB UWBC WBC,Urine Innumerable 0-4 [HPF] LAB UCLUMPWBC WBC CLUMP, Urine Moderate None Seen [LPF] LAB USQEPI Squamous Epithelial Cell,Urine 3-4 0-2 [HPF] LAB UBACT Bacteria,Urin e 4+ None Seen [HPF] LAB UHYALC Hyaline Casts,Urine None 0-8 [LPF] Result Comment: PERFORMED BY : [place] [address] PATHOLOGIST SYSTEMS SOFTWARE DESIGNER TATYANA ALLEN M.D. Performed By: #### ANA MARIA SANZ #### [address] URINE CULTURE Observed: 11/22/2024 12:35 AM Status: F Source: [facility] ORGANISM: Klebsiella pneumon iae (O:KLEPNE) [place] Count >100,000 Aerobic GISSEL Charge ([id number]) SUSCEPTIBILITY ORGANISM: O:KLEPNE ANTIBIOTIC INTERPRETATION GISSEL Amikacin S <16 Amoxacillin/K Clavulanate S <8 Ampicillin/Sulbactam S 88/4 Aztreonam S <4 Cefazolin S <2 Cefepime S <2 Ceftazidime S <1 Ceftazidime/Avibactam S <4 Ceftolozane/Tazobactam S <2 Ceftriaxone S <1 Cefuroxime S <4 Ciprofloxacin S <0.25 Ertapenem S <0.5 Gentamicin S <2 Levofloxacin S <0.5 Meropenem S <1 Meropenem/Vaborbactam S <2 Nitrofurantoin S <32 Piperacillin/Tazobactam S <8 Tetracycline S <4 Tigecycline S <2 Tobramycin S <2 Trimethoprim/Sulfamethoxazole S <0.5 S = SUSCEPTIBLE I = INTERMEDIATE R = RESISTANT BLANK = DATA NOT AVAILABLE, OR DRUG NOT ADVISABLE OR TESTED R* = RESISTANCE DUE TO EXTENDED SPECTRUM BETA-LACTAMASES ESBL = EXTENDED SPECTRUM BETA-LACTAMASE TFG = THYMIDINE-DEPENDENT STRAIN SHERICE = BETA-LACTAMASE POSITIVE IB = INDUCIBLE BETA-LACTAMASE. APPEARS IN PLACE OF 'S' WITH SPECIES KNOWN TO POSSESS INDUCIBLE BETA-LACTAMASES. POTENTIALLY THEY MAY BECOME RESISTANT TO ALL B-LACTAM DRUGS. PERFORMED BY: [place] [address] PATHOLOGIST SYSTEMS SOFTWARE DESIGNER TATYANA ALLEN M.D. Performed By: #### ANA MARIA SANZ #### [facility] [address] [place] [address] BLOOD CULTURE Observed: 11/22/2024 12:11 AM Status: F Source: [facility] NO GROWTH 5 DAYS PERFORMED BY: [place] [address] PATHOLOGIST SYSTEMS SOFTWARE DESIGNER TATYANA ALLEN M.D. Performed By: #### GA ### # [facility] [address] [place] [address] BASIC METABOLIC PANEL Collected: 2024 12:11 AM Status: F Source: [facility] TYPE CODE TESTS RESULT OUT OF RANGE REFERENCE UNITS LAB GLU Glucose 186 Decreased 70-100 mg/dL Result Comment: Random Gluco se Reference Range is dependent on time and content of last meal. Glucose of more than 200 mg/dL in a nonstressed, ambulatory subject supports the diagnosis of Diabetes Mellitus. ADA recommended reference range LAB BUN Blood Urea Nitrogen 91 High 7-25 mg/dL LAB CREATT Creatinine 4.61 High 0.60-1.20 mg/dL LAB GFReNR Estimated GFR 9.388 LAB NA Sodium 138 Normal 136-145 mmol/L LAB K Potassium 6.3 High Off Scale 3.5-5.1 mmol/L Result Comment: Critical Res ult Called to and read back by: DAI ULNA at: 11/22/2024 01:32:52 by:[id number] LAB CL Chloride 106 Normal 98-107 mmol/L LAB CO2 Carbon Dioxide 23.2 Normal 21.0-31.0 mmol/L LAB GAP Anion Gap 15.1 High 6.0-15.0 LAB CA Calcium 6.4 Low Off Scale 8.6-10.3 mg/dL Result Comment: Critical Res ult Called to and read back by: DAI LUNA at: 11/22/2024 01:32:52 by:[id number] LAB CRCLPHA Creatinine Clr Calc Pharmacy 9.05 Result Comment: PERFORMED BY : [place] [address] PATHOLOGIST SYSTEMS SOFTWARE DESIGNER TATYANA ALLEN M.D. Performed By: #### BMP #### [address] B-TYPE NATRIURETIC PEPTIDE Collected: 11/22/2024 12:1 1 AM Status: F Source: [facility] TYPE CODE TESTS RESULT OUT OF RANGE REFERENCE UNITS LAB BNP B-Type Natriuretic Peptide 1573.0 High 5-100 pg/mL Result Comment: PERFORMED BY : [place] [address] PATHOLOGIST SYSTEMS SOFTWARE DESIGNER TATYANA ALLEN M.D. Performed By: #### BNP #### [address] BLOOD CULTURE Observed: 11/22/2024 12:08 AM Status: F Source: [facility] NO GROWTH 5 DAYS PERFORMED BY: [place] [address] PATHOLOGIST SYSTEMS SOFTWARE DESIGNER TATYANA ALLEN M.D. Performed By: #### CUBLD ### # [address] [address] [facility] XR CHEST 1V PORTABLE Observed: 11:20 PM Status: COMPLETED Source: [facility] Main [place] [address] [place] [id number] XRay Report Signed Patient: Martin Hagen MR#: [id number] 52 : 1950 Acct:[id number] Age/Sex: 73 / F ADM Date: 11/21/24 Loc: Room: [address] [place] [address] Type: ADM IN Attending Dr: Melonie Brown MD Copies to: MD Melonie Casanova MD Ordering Provider: Sylvia Orellana MD Date of Service: 11/21/24 XR/XR chest 1V portable: r/o infiltrates, CHF Plain film chest Single view HISTORY: Low blood pressure. CHF exacerbation COMPARISON: None FINDINGS: SUPPORT DEVICES: None POSTSURGICAL CHANGES: None HEART: Cardiomegaly PULMONARY SE: Hilar vascular prominence MEDIASTINUM: Unremarkable LUNGS AND PLEURA: Developing moderate right basilar pleural-parenchymal changes and mild interstitial changes BONY STRUCTURES: Intact ADDITIONAL FINDINGS None XR/XR chest 1V portable IMPRESSION: CHF findings. Small marked right pleural effusion Impression dictated by: Gato Fong M.D. 11/21/2024 11:22 PM Dictation Location: [place] [address] Transcribed By: [facility] 11/21/242321 Dictated By: Gato Fong DO 11/21/242319 Signed By: <Electronically signed by Gato Fong DO in OV> 11/21/24 232 GLUCOSE POCT GLUCOMETERS Collected: 11/21/2024 10:55 PM Status: F Source: [facility] TYPE CODE TESTS RESULT OUT OF RANGE REFERENCE UNITS LAB GLUPOC Glucose Poc Glucometers 103 mg/dL Result Comment: Random Gluco se Reference Range is dependent on time and content of last meal. Glucose of more than 200 mg/dL in a nonstressed, ambulatory subject supports the diagnosis of Diabetes Mellitus. LAB COMM1 Commemt1 Glu2: Cleaned Meter Result Comment: PERFORMED BY : [address] [address] PATHOLOGIST SYSTEMS SOFTWARE DESIGNER TATYANA ALLEN M.D. Performed By: #### GLULS ### # Point of Care testing , ECG 12 LEAD ECG Observed: 11/21/2024 10:25 PM Status: COMPLETED Source: [facility] [facility] Main [address] [address] Electrocardiograph Report Signed Patient: Martin Hagen MR#: [id number] 52 : 1950 Acct:[id number] Age/Sex: 73 / F ADM Date: 11/21/24 Loc: Room: [address] [place] [address] Type: ADM IN Attending Dr: Christiano Alberto MD Ordering Provider: Sylvia Orellana MD Date of Service: 11/21/24 ECG/ECG 12 lead ECG: prn ekg Copies to: Test Reason : Blood Pressure : 82/51 mmHG Vent. Rate : 202 BPM Atrial Rate : 100 BPM P-R Int : * ms QRS Dur : 60 ms QT Int : 134 ms P-R-T Axes : * 40 227 degrees QTcB Int : 245 ms Atrial fibrillation with rapid ventricular response with premature ventricular or aberrantly conducted complexes Right bundle branch block Low voltage QRS Abnormal ECG Confirmed by Zoila Manuel ([id number]) on 11/29/2024 1:56:06 PM Referred By: Electronically Signed By: Zoila Manuel Transcribed By: MUS Signed By Zoila Manuel MD 5 1356 VENOUS BLOOD GAS Collected: 11/21/2024 9:51 PM Statu s: F Source: [facility] TYPE CODE TESTS RESULT OUT OF RANGE REFERENCE UNITS LAB VBPH VBG PH Venous PH 7.16 Low Off Scale 7.32-7.43 LAB VBPCO2 VBG PCO2 65.1 High 38.0-50.0 mm[Hg] LAB VBHCO3 VBG HCO3 22.5 Low 23.0-29.0 mmol/L LAB VBBE VBG Base Excess -6.8 Low -3.0-3.0 mmol/L LAB [id number] VBG Oxygen Saturation 59.0 Low Off Scale 73.0-76.0 % LAB VBTCO2 VBG TCO2 24.5 Normal 24.0-29.0 mmol/L LAB VBFIO2 VBG Frac Inspired O2 28% % LAB VBLITFLOW VBG Liter Flow 2 LAB VBDRAW VBG Draw Site Venous LAB OXYDEV Oxygen Device Nasal Cannula LAB RESPCRIT Respiratory Critical Result Comment: Critical Christina ue called on: 11/21/2024 at 21:53 PERFORMED BY: [facility] [place] [address] PATHOLOGIST SYSTEMS SOFTWARE DESIGNER TATYANA ALLEN M.D. Performed By: #### VBG #### Point of Care testing , COMPLETE BLOOD COUNT AUTO DIFF Collected: 11/21/2024 9:45 PM Status: F Source: [facility] TYPE CODE TESTS RESULT OUT OF RANGE REFERENCE UNITS LAB WBC White Blood Count 7.4 Normal 3.8-11.6 [CFU]/mL LAB UNWBC Uncorrected WBC 7.4 Normal 3.8-11.6 10*3/uL LAB RBC Red Blood Count 3.18 Low 3.60-5.00 10*6/u L LAB HGB Hemoglobin 9.9 Low 11.8-15.4 g/dL LAB HCT Hematocrit 30.8 Low 34.0-46.4 % LAB MCV Mean Corpuscular Volume 96.9 Normal 80-100 fL LAB MCH Mean Corpuscular Hemoglobin 31.3 Normal 24.7-34.3 pg LAB MCHC Mean Corpuscular HGB Conc 32.3 Normal 32.0-35.0 g/dL LAB RDW Red Cell Distribution Width 15.1 Normal 11.9-15.3 % LAB PLT Platelet Count 160 Normal 150-450 10*3/uL LAB MPV Mean Platelet Volume 7.8 Normal 6.3-10.7 fL LAB NE% Neutrophils % (Auto) 87.7 . % LAB LY% Lymphocytes % (Auto) 8.7 . % LAB MO% Monocytes % (Auto) 3.2 . % LAB EO% Eosinophils % (Auto) 0.1 . % LAB BA% Basophils % (Auto) 0.3 . % LAB NRBC% NRBC% 0.1 Normal 0-0.5 /100{WBC} LAB NE# Neutrophils # (Auto) 6.5 Normal 1.8-7.7 10*3/uL LAB LY# Lymphocytes # (Auto) 0.6 Low 1.00-4.8 10*3/uL LAB MO# Monocytes # (Auto) 0.2 Normal 0.0-0.8 10*3/uL LAB EO# Eosinophils # (Auto) 0.0 Normal 0.0-0.45 10*3/uL LAB BA# Basophils # (Auto) 0.0 Normal 0.0-0.2 10*3/uL Result Comment: PERFORMED BY : [facility] [address] [place] [address] PATHOLOGIST SYSTEMS SOFTWARE DESIGNER TATYANA ALLEN M.D. Performed By: #### MG, CBC, PHOS, CMP, LACTIC #### [facility] [address] COMPREHENSIVE METABOLIC PANEL Collected: 11/21/2024 9 :45 PM Status: F Source: [facility] TYPE CODE TESTS RESULT OUT OF RANGE REFERENCE UNITS LAB GLU Glucose 79 Normal 70-100 mg/dL Result Comment: Random Gluco se Reference Range is dependent on time and content of last meal. Glucose of more than 200 mg/dL in a nonstressed, ambulatory subject supports the diagnosis of Diabetes Mellitus. ADA recommended reference range LAB BUN Blood Urea Nitrogen 92 High 7-25 mg/d L LAB CREATT Creatinine 4.74 High 0.60-1.20 mg/dL LAB GFReNR Estimated GFR 9.080 LAB NA Sodium 137 Normal 136-145 mmol/L LAB K Potassium 7.0 High Off Scale 3.5-5.1 mmol/L Result Comment: Critical Res ult Called to and read back by: DAI NORMAN at: 11/21/2024 22:19:36 by:[id number] LAB CL Chloride 105 Normal 98-107 mmol/L LAB CO2 Carbon Dioxide 25.0 Normal 21.0-31.0 mmol/L LAB GAP Anion Gap 14.0 Normal 6.0-15.0 LAB CA Calcium 6.3 Low Off Scale 8.6-10.3 mg/dL Result Comment: Critical Res ult Called to and read back by: DAI NORMAN at: 11/21/2024 22:19:36 by:[id number] LAB TP Total Protein 5.7 Low 6.4-8.9 g/dL LAB ALB Albumin Level 2.9 Low 3.5-5.7 g/dL LAB GLOB Globulin 2.8 g/dL LAB AGRATIO Albumin/Globulin Ratio 1.0 LAB BILIT Bilirubin,Total 0.4 Normal 0.3-1.0 mg/dL LAB AST Aspartate Amino Transferase 15 Normal 13-39 U/L LAB ALT Alanine Aminotransferase 13 Normal 7-52 U/L LAB ALP Alkaline Phosphatase 59 Normal 34-104 U/L Performed By: #### MG, CBC, PHOS, CMP, LACTIC #### [address] PHOSPHORUS Collected: 9:45 PM Status: F Source: [facility] TYPE CODE TESTS RESULT OUT OF RANGE REFERENCE UNITS LAB PHOS Phosphorus 6.4 High 2.5-4.5 mg/dL Performed By: #### MG, CBC, PHOS, CMP, LACTIC #### [address] MAGNESIUM Collected: 9:45 PM Status: F Source: [facility] TYPE CODE TESTS RESULT OUT OF RANGE REFERENCE UNITS LAB MG Magnesium 2.2 Normal 1.9-2.7 mg/dL Result Comment: PERFORMED BY : [place] [address] PATHOLOGIST SYSTEMS SOFTWARE DESIGNER TATYANA ALLEN M.D. Performed By: #### MG, CBC, PHOS, CMP, LACTIC #### [address] LACTIC ACID Collected: 9:45 PM Status: F Source: [facility] TYPE CODE TESTS RESULT OUT OF RANGE REFERENCE UNITS LAB LACTIC Lactic Acid 1.0 Normal 0.5-1.9 mmol/L Result Comment: Lactic Acid reference range has been updated to 0.5 ? 1.9 mmol/L and the critical range of 2.0 or greater. PERFORMED BY: [place] [address] PATHOLOGIST SYSTEMS SOFTWARE DESIGNER TATYANA ALLEN M.D. Performed By: #### MG, CBC, PHOS, CMP, LACTIC #### [address] ECG 12 LEAD ECG Observed: 11/21/2024 9:00 PM Status: COMPLETED Source: [facility] Main [place] [address] [place] [address] Electrocardiograph Report Signed Patient: Martin Hagen MR#: [id number] 52 : 1950 Acct:[id number] Age/Sex: 73 / F ADM Date: 11/21/24 Loc: Room: [address] [place] [address] Type: ADM IN Attending Dr: Christiano Alberto MD Ordering Provider: Sylvia Orellana MD Date of Service: 11/21/24 ECG/ECG 12 lead ECG: hyperkalemia Copies to: Test Reason : Blood Pressure : 98/60 mmHG Vent. Rate : 103 BPM Atrial Rate : 103 BPM P-R Int : * ms QRS Dur : 96 ms QT Int : 364 ms P-R-T Axes : * 6 36 degrees QTcB Int : 476 ms Atrial fibrillation with rapid ventricular response with premature ventricular or aberrantly conducted complexes Incomplete right bundle branch block Poor anterior R wave progression Abnormal ECG When compared with ECG of 09-Nov-2023 13:45, Atrial fibrillation has replaced Sinus rhythm Vent. rate has increased by 35 bpm Incomplete right bundle branch block is now present Confirmed by GAMA HARDY MD (Formerly [facility]) on 11/22/2024 5:26:21 PM Referred By: Electronically Signed By: GAMA HARDY MD Transcribed By: MUS Signed By Gama Hardy MD 0 11/22/24 172 URINE CULTURE Observed: 11/14/2024 8:00 AM Status: F Source: [facility] >100,000 colonies/ml mixed bacterial skin contaminants including mixed gram negative bacilli - 2 Days PERFORMED BY: [place] [address] PATHOLOGIST SYSTEMS SOFTWARE DESIGNER TATYANA ALLEN M.D. Performed By: #### CUU #### [address] LUNG SCREENING LOW DOSE Observed: 2:48 PM Status: F Source: [facility] This is a summary report. Th e complete report is available in the patient's medical record. If you cannot access the medical record, please contact the sending organization for a detailed fax or copy. LOW DOSE CT IMAGING OF THE CHEST WITHOUT INTRAVENOUS CONTRAST MEDIUM. HISTORY: Tobacco use. TECHNICAL FACTORS: Without IV contrast axial helical 1.25mm slice thickness low dose images of the chest performed for lung cancer screening. FINDINGS: Comparison December 11, 2023. No suspicious lung nodule, mass, or parenchymal consolidation. Left upper lobe posterior segment pleural-based 5 mm calcified granuloma. Mild parenchymal consolidation and volume loss bilateral lower chest, greatest involvement right middle lobe lateral segment contiguous with the eventrated right hemidiaphragm dome. No significant mediastinal or hilar lymphadenopathy. Small to moderate size right sided pleural effusion (new from fourteen months earlier), mild compressive volume loss. No pericardial effusion. Stable bilateral adrenal gland massed, right greater than left, 4.5 cm maximum diameter. IMPRESSION: Lung Rads: LUNGRADS 2 - Benign Follow-up Recommendation: LDCT 1 Year Lung Rads categories: Category 0: Incomplete Additional Imaging Categories 1 & 2: Negative/Benign Continue annual screening Category 3: Probable benign 6 month f/u CT Chest wo Category 3s: Clinically significant or potentially clinically significant findings Category 4A/B Suspicious 4A: [address] Chest wo; PET/CT when > 8mm solid nodule component exists 4B: Chest w/ contrast; PET/CT and/or biopsy Category 5: Highly suspicious for Nodules with strong evidence of malignancy, requiring malignancy. immediate biopsy. Category 6: Incomplete Insufficient Information All CT scans at this facility use dose modulation, iterative reconstruction, and/or weight based dosing when appropriate to reduce radiation dose to as low as reasonably achievable. TRANSCRIBED BY: ELECTRONICALLY SIGNED BY: Perez Gamble MD RENAL BI Observed: 08/04/2024 1:51 PM Status: COMPLETED Source: [facility] [place] [address] Ultrasound Report Signed Patient: Martin Hagen MR#: [id number] 52 : 1950 Acct:[id number] Age/Sex: 73 / F ADM Date: 08/04/24 Loc: Room: Type: [facility] Attending Dr: Shalonda Pearson MD Ordering Provider: Shalonda Pearson MD Date of Service: 08/04/24 US/US renal BI: N17.9 - Acute kidney failure, unspecified Copies to: Shalonda Pearson MD BILATERAL RENAL AND BLADDER ULTRASOUND CLINICAL HISTORY: Acute kidney injury. COMPARISON: None FINDINGS: Estimation of renal size is approximately 9.8 cm on the right and 9.8 cm on the left. No contour deforming mass, shadowing stone or hydronephrosis. Cystic changes involving both kidneys. The urinary bladder is partially distended with a volume of 218.07 ml. No shadowing stone or focal lesion. Post void residual 75 mL. US/US renal BI IMPRESSION: No acute findings. SIGNIFICANT POST VOID RESIDUAL. Impression dictated by: Perez Ferreira Jr., D.OJesse08/04/2024 1:56 PM Dictation Location: [place] [address] Tech: Rona Rich Transcribed By: ELIANA 08/04/24 1356 Dictated By: Perez Ferreira Jr, DO 08/04/24 1351 Signed By: <Electronically signed by Perez Ferreira Jr, DO in OV> 08/04/24 1356 CLOSTRIDIUM DIFFICILE TOXIN/GDH W/REFL TO PCR Collected: 07/20/2024 10:17 AM Status: F Source: [employer] TYPE CODE TESTS RESULT OUT OF RANGE REFERENCE UNITS LAB [id number] CLOSTRIDIUM DIFFICILE TOXIN/GDH W/REFL TO PCR SEE NOTE Abnormal Result Comment: CLOSTRIDIUM DIFFICILE TOXIN/GDH W/REFL TO PCR Micro Number: [id number] Test Status: Final Specimen Source: Stool Specimen Quality: Adequate GDH Antigen: Detected Toxin A and B: Detected COMMENT: Toxigenic C. difficile detected For additional information, please refer to http://education.gdgt/faq/DSV827 (This link is being provided for informational/educational purposes only.) Performed By: #### [id number] ### # [facility] [address], [address] [place] [id number] Route Sales Person: Chon Manzano MD UROLOGY OFFICE/CLINIC NOTE Observed: 11:50 AM Status: F Source: [facility] Urology Office/Clinic Note Chief Complaint 6 month [...] for this patient from Shaye Pittman, NICOLA, LOOM FIXER I have reviewed and verified the staff [...] x 1.9 cm without appreciable fat density. [4] -No further surveillance due to stability of benign adenoma and metabolic activity Follow-up With When Contact Information Alec XIE, Jacqui Nieves, URL, URO Additional Instructions: As needed Patient Education Urinary Tract Infection, Adult I, Danielle Ramirez, personally scribed for Dr. Michael on 03/15/2024 11:50:28. . Documentation recorded by the scribe, Danielle Ramirez, accurately reflects the services(s) I performed and decisions made by me. Authenticated by Dr. Michael on 03/15/2024 16:01:53. Problem List/Past Medical History Ongoing Acute cystitis Adrenal mass Arthritis Asymptomatic microscopic hematuria At risk for falls Haddad's esophagus Chronic constipation with overflow Colon polyps Constipation Depression Diabetes Dysphagia Emphysematous cystitis Extreme obesity Fatty liver Gastroparesis Heartburn History of colon polyps Incontinence without sensory awareness Loose stools Lower abdominal pain Microhematuria Muscle spasm Panic attacks Personal history of colonic polyps Pneumaturia Postinfective urethral stricture, not elsewhere classified, female Psoriatic arthritis Recurrent UTI Renal cyst Renal mass Urgency of urination Urinary retention UTI (urinary tract infection) Historical Colonoscopy EGD (esophagogastroduodenoscopy) gastric outlet reduction Heart disease Procedure/Surgical History Cystoscopy (02/22/2023), Cystoscopy (12/02/2020), Cholecystectomy, Colonoscopy, History of hernia repair, History of hysterectomy., Repair of hip. Medications acetaminophen-hydrocodone 325 mg-5 mg oral tablet Advair 250 mcg-50 mcg Powder, 1 puff(s), Inhalation, BID alprazolam 1 mg Tab atorvastatin 20 mg Tab, 20 mg= 1 tab(s), Oral, Once a day (at bedtime) bumetanide 1 mg Tab calcium (as carbonate)-vitamin D 90 mg-25 mcg (1000 intl units) oral tablet cyclobenzaprine 10 mg Tab Eliquis 5 mg oral tablet Estrace 0.1 mg/g Cream, See Instructions, 3 refills Farxiga 10 mg oral tablet Fish Oil, 1000 mg, Oral, Daily fluoxetine, 40 mg, Oral, Daily Keppra, BID Klor-Con M20, 20 mEq, Oral, BID magnesium oxide 400 mg Tab metolazone 2.5 mg Tab Metoprolol tartrate 50 mg Tab, 50 mg= 1 tab(s), Oral, BID Myrbetriq 50 mg oral tablet, extended release, 50 mg= 1 tab(s), Oral, Daily, 6 refills Novolin 70/30 10 mL Susp-Inj omeprazole 40 mg Cap-DR ondansetron 4 mg Tab Rexulti 0.25 mg oral tablet, Oral, Daily tizanidine 4 mg oral capsule, Oral, TID Trulicity Pen, 1.5 mg, SubCutaneous, qWeek Ventolin HFA 90 mcg/inh Aerosol, 2 puff(s), Inhalation, QID Allergies Aleve (AOF) Bee Stings (Swelling of body region) Grapefruit (Unknown) Pineapple (Unknown) Social History Alcohol - Denies Alcohol Use, 11/07/2019 Never., 03/15/2024 Substance Abuse Never., 03/15/2024 Tobacco 10 or more cigarettes (1/2 pack or more)/day in last 30 days Tobacco Use:., 03/15/2024 Family History Arthritis: Mother. Asthma: Mother. Heart disease: Mother. Hyperlipidemia: Mother. Hypertension: Mother. Migraine: Sister. Stroke: Mother and Sister. Immunizations Vaccine Date Status Comments influenza virus vaccine, inactivated 03/01/2023 Recorded influenza virus vaccine, inactivated 02/05/2022 Recorded influenza virus vaccine, inactivated 01/31/2022 Recorded influenza virus vaccine, inactivated - Not Given Patient Refuses influenza virus vaccine, inactivated 03/05/2021 Recorded influenza virus vaccine, inactivated 03/22/2020 Recorded influenza virus vaccine, inactivated 03/15/2020 Recorded influenza virus vaccine, inactivated 02/09/2019 Recorded influenza virus vaccine, inactivated 02/17/2018 Recorded influenza virus vaccine, inactivated 01/25/2017 Recorded influenza virus vaccine, inactivated 02/19/2016 Recorded zoster vaccine live 02/06/2016 Recorded pneumococcal 23-valent vaccine 02/03/2016 Recorded pneumococcal 13-valent vaccine 04/12/2015 Recorded Result Comment: Electronical ly Signed By: Jacqui Michael MD\.br\Date and Time Signed: 03/15/24 16:02 EST\.br\Electronically Co-Signed By: Danielle Ramirez\.br\Date and Time Co-Signed: 03/15/24 11:50 EST PATIENT EDUCATION Observed: 03/15/2024 11:50 AM Status: C Source: [facility] Patient Education Obstetrics and Gynecology Urinary Tract [...] this condition includes: ??? Antibiotic medicine. ??? Rswz-hxd-fchfepn medicines to treat discomfort. ??? Drinking enough [...] these instructions at home: Medicines ??? Take jmzi-hry-uudabsz and prescription medicines only as told by [...] provider. Document Revised: 11/24/2020 Document Reviewed: 11/29/2020 [employer] Patient Education ? 2023 [employer]. AMBULATORY VISIT SUMMARY Observed: 03/15 11:49 AM Status: F Source: [facility] Ambulatory Visit Summary MARTIN HAGEN :1950 Visit Date:03/15/2024 Ambulatory Visit Instructions Your Diagnosis Recurrent UTI Urgency of urination Pneumaturia Urinary retention Renal cyst Adrenal mass Your Care Team Attending Physician - Alec XIE, Jacqui Nieves Primary Care Physician - JUSTICE XIE, SHAWN Pearson This Is Your Medications [...] Following Appointments Follow Up with Alec XIE, Jacqui Nieves, CARLY, URO When: Where: Medications What How Much [...] ondansetron (ondansetron 4 mg Tab) Contact prescribing physician if questions or concerns Unchanged potassium chloride (Klor-Con M20) 20 Milliequivalent By Mouth 2 times a day Contact prescribing physician if questions or concerns Unchanged tizanidine (tizanidine 4 mg oral capsule) By Mouth 3 times a day Contact prescribing physician if questions or concerns Allergies Aleve (AOF) Bee Stings (Swelling of body region) Grapefruit (Unknown) Pineapple (Unknown) Problems Ongoing - Any problem that you are currently receiving treatment for. Acute cystitis Adrenal mass Arthritis Asymptomatic microscopic hematuria At risk for falls Haddad's esophagus Chronic constipation with overflow Colon polyps Constipation Depression Diabetes Dysphagia Emphysematous cystitis Extreme obesity Fatty liver Gastroparesis Heartburn History of colon polyps Incontinence without sensory awareness Loose stools Lower abdominal pain Microhematuria Muscle spasm Panic attacks Personal history of colonic polyps Pneumaturia Postinfective urethral stricture, not elsewhere classified, female Psoriatic arthritis Recurrent UTI Renal cyst Renal mass Urgency of urination Urinary retention UTI (urinary tract infection) Historical - Any problem that you are no longer receiving treatment for. Colonoscopy EGD (esophagogastroduodenoscopy) gastric outlet reduction Heart disease Patient Survey You may receive a survey via text or e-mail asking about your office visit. Please share your experience with us by completing your survey. We appreciate your feedback and thank you for choosing us for your care. Education Materials Urinary Tract Infection, Adult A urinary tract [...] this condition includes: ??? Antibiotic medicine. ??? Bikx-xte-uomfvuf medicines to treat discomfort. ??? Drinking enough [...] these instructions at home: Medicines ??? Take zopu-rlq-tmkpnrx and prescription medicines only as told by [...] Your symptoms do not get better after 1???2 days. ??? Your symptoms go away and [...] provider. Document Revised: 11/24/2020 Document Reviewed: 11/29/2020 [employer] Patient Education ??? 2023 [employer]. ALLERGIES DATE TYPE / CODE NAME / CODE REACTION SEVERITY SOURCE 10/19/2024 Drug Allergy/718763 002(SNOMED CT) grapefruit/H43173424 9(RXNORM) Rash Unknown [facility] 10/19/2024 Drug Allergy/799752 002(SNOMED CT) bee venom protein (honey bee)/P432378862(RXNO RM) Anaphylaxis Unknown [facility] 10/11/2014 /783675972(S NOMED CT) naproxen Unknown [facility] 10/11/2014 NE/609147151(S NOMED CT) Aleve AOF [facility] /577097938(S NOMED CT) Bee Stings [id number] [facility] /517114556(S NOMED CT) No Known Medication Allergies [facility] /204883832(S NOMED CT) Pineapple 655050505 [facility] Food Allergy/807883 001(SNOMED CT) Grapefruit 514971462 [facility] ENCOUNTERS ADMIT/DISCHARGE ACCOUNT NUMBER ADMITTING ENCOUNTER CLASS LOCATION SOURCE 01/04/2025/01/05/20 [id number] Ambulatory Building:NOM S CI POD [facility] 12/07/2024/12/08/19 25 [id number] Ambulatory Building:[facility] 11/21/2024/12/01/19 25 [id number] Sylvia Orellana [facility] [id number]: 1 [facility] 11/21/2024/11/22/19 25 [id number] Ambulatory Building:F MED [facility] 11/14/2024/11/15/19 25 [id number] [facility] 10/27/2024/10/28/19 25 [id number] Ambulatory Building:NOM SFNRCT [facility] 10/26/2024/10/27/19 25 [id number] Ambulatory Building:NOM S CI POD [facility] 10/23/2024/10/24/19 25 [id number] Ambulatory Building:CIF AMMED [facility] 08/04/2024/08/05/19 25 [id number] Shalonda Pearson [facility] 07/17/2024/07/18/19 25 [id number] Ambulatory Building:CIF AMMED [facility] 06/01/2024/06/01/19 25 [id number] Ambulatory Building:NOM S CI POD [facility] 04/17/2024/04/17/20 24 [id number] Ambulatory Building:CIF AMMED [facility] 03/15/2024/03/15/20 24 [id number] Ambulatory EU Inga ding:DONTE Melton : Exam 2 [facility] 03/09/2024/03/09/20 24 [id number] Ambulatory Building:NOM S CI POD [facility] EPIC PAYERS ENCOUNTER GUARANTOR PAYER SUBSCRIBER SOURCE 01/04/2025 MARTIN MAJORB: [address] [place] [address]Anr: (RY) Primary Insurance:MEDICARE Policy Number: [id number] ve Date:1514-84-25Jwx n Name:Medicare MARTIN MAJORB: [id number] [address] [place] [address] [facility] 01/04/2025 Secondary [place]: [id number] joan Date:2021-08-31 MARTIN MAJORB: [id number] [address] [place] [address] [facility] EPIC 2024 MARTIN MAJORB: [id number] [place] [address]Qmr: ([place]) Primary Insurance:MEDICARE Policy Number: [id number] ve Date:8215-27-76Cmz n Name:Medicare MARTIN HAGENDOB: [id number] [address] [place] [address] [facility] EPIC 2024 Secondary Insurance[place]: [id number] joan Date:2021-08-31 MARTIN HAGENDOB: [id number] [address] [place] [address] [facility] 11/21/2024 Martin Camarillo N [address] [place] [address]Qtx: (HP) Primary Insurance:Medicare Policy Number: [id number] ve Date:2024-11-21 Martin MajorB: [id number] [address] [place] [address]Ito: (HP) [facility] 11/21/2024 Secondary Insurance:Medicaid Policy Number: [id number] joan Date:2024-11-21 Martin MajorB: [id number] [address] [place] [address]Foq: (HP) [facility] 11/21/2024 Tertiary Insurance:Self PayPolicy Number: Effective Date:2024-11-21 [facility] 11/21/2024 MARTIN MAJORB: [address] [place] [address]Gus: (HP) Primary Insurance:MEDICARE Policy Number: [id number] ve Date:6296-05-64Nvl n Name:Medicare MARTIN MAJORB: [id number] [address] [place] [address] [facility] 11/21/2024 Secondary Insurance[place]: [id number] joan Date:2021-08-31 MARTIN MAJORB: [id number] [address] [place] [address] [facility] 10/27/2024 MARTIN HAGENDOB: [address] [place] [address]Qpq: (HP) Primary Insurance:MEDICARE Policy Number: [id number] ve Date:3517-22-99Dhy n Name:Medicare MARTIN HAGENDOB: [id number] [address] [place] [address] [facility] 10/27/2024 Secondary Insurance[place]: [id number] joan Date:2021-08-31 MARTIN HAGENDOB: [id number] [address] [place] [address] [facility] EP[facility] 10/26/2024 MARTIN CHESTERETTDOB: N [address] [place] [address]Ksl: (HP) Primary Insurance:MEDICARE Policy Number: [id number] Date:1062-71-07Vfo n Name:Medicare MARTIN CHESTERCONNIEDOB: [id number] [address] [place] [address] [facility] 10/26/2024 Secondary Insurance[place]: [id number] joan Date:2021-08-31 MARTIN HAGENDOB: [id number] [address] [place] [address] [facility] 10/23/2024 MARTIN CHESTERETTDOB: [address] [place] [address]Cgn: (HP) Primary Insurance:MEDICARE Policy Number: [id number] ve Date:6924-54-15Vhy n Name:Medicare MARTIN CHESTERCONNIEDOB: [id number] [address] [place] [address] [facility] 10/23/2024 Secondary Insurance[place]: [id number] joan Date:2021-08-31 MARTIN CHESTERETTDOB: [id number] [address] [place] [address] [facility] 07/17/2024 MARTIN CHESTERETTDOB: [address] [place] [address]Hef: (HP) Primary Insurance:MEDICARE Policy Number: [id number] Date:7401-35-12Fmx n Name:Medicare MARTIN HAGENDOB: [id number] [address] [place] [address] [facility] 07/17/2024 Secondary Insurance[place]: [id number] joan Date:2021-08-31 MARTIN XIAODOB: [id number] [address] [place] [address] [facility] 06/01/2024 MARTIN XIAODOB: [address] [place] [address]Onm: (HP) Primary Insurance:MEDICARE Policy Number: [id number] ve Date:1050-09-36Qdk n Name:Medicare MARTIN CHESTERDARRELLB: [id number] [address] [place] [address] [facility] 06/01/2024 Secondary Insurance[place]: [id number] joan Date:2021-08-31 MARTIN HAGENDOB: [id number] [address] [place] [address] [facility] 04/17/2024 MARTIN XIAODOB: [address] [place] [address]Cpa: (HP) Primary Insurance:MEDICARE Policy Number: [id number] ve Date:9802-51-44Hma n Name:Medicare MARTIN CHESTERCONNIEDOB: [id number] [address] [place] [address] [facility] 04/17/2024 Secondary Insurance[place]: [id number] joan Date:2021-08-31 MARTIN XIAODOB: [id number] [address] [place] [address] [facility] EPIC 03/15/2024 MARTIN CHESTERETTDOB: [facility] 294Tel: (HP) Primary Insurance:MEDICARE Policy Number: [id number] Date:2713-20-48[address] [address], [place] [address]IY: MARTIN VELASQUEZ [facility] 03/15/2024 Secondary Insurance:Medicaid Policy Number: [id number] joan Date:9540-16-24[address], [place] [address]YL: MARTIN VELASQUEZ [facility] 03/09/2024 MARTIN MAJORB: [address] [address]Vqd: (HP) Primary Insurance:MEDICARE Policy Number: [id number] Date:5601-74-65Elj n Name:Medicare MARTIN MORENO: [id number] [address] [place] [address] [facility] 03/09/2024 Secondary Insurance:[place] Number: [id number] joan Date:2021-08-31 MARTIN MAJORB: [id number] [address] [address] [place] [address] [facility]
--- OUTSIDE RECORDS SUMMARY | 2025-01-30 09:51 | XMS_ITS | Encounter Summary ---
Author Organization [facility] Address [address] [facility] [place] [address] Care Team Providers Care Lap Welder Name Role Phone Shawn Barber MD Unavailable [phone] Shawn Barber MD Primary Care Provider [phone] Wednesday, Randee AVAYA ENGINEER Unavailable [phone] Becca Campos CARTOGRAPHY TECHNICIAN Unavailable Hilary Frank RN Unavailable Kaylen Moore AVAYA ENGINEER Unavailable Encounter Details Date Type Department Care Team (Late st Contact Info) Description 11/16/2023 Abstract [facility] [place] [facility] 112 [facility] 110 [place] [address] Shawn Barber MD 112 [facility] 110 [place] [address] Social History Tobacco Use Types [...] often do you attend chur ch or oriental orthodox services? Never 01/29/2023 Do you belong to [...] Recorded Patient Health Questionnaire-2 Score 1 11/25/2022 [facility] [place] of Occupat ional Health - Occupational Stress [...] Care Team (Late st Contact Info) Description 02/05/2025 2:00 PM EDT Office Visit [facility] [place] [facility] [address] [facility] 110 [place] [address] hSawn Barber MD [address] [facility] 110 [place] [address] 03/15/2025 3:10 PM EST Office Visit [facility] [address] [place] [address] Colt Mendieta, DPM [address] [facility] 5 [place] [address] documented as of this encounter Visit Diagnoses Not on filedocumented in this encounter Care Teams Lap Welder Relationship Specialty Start Date End Date Shawn Barber MD [address] [place] [address] PCP - ACO Reach 09/24/22 Shawn Barber MD [address] [place] [address] PCP - General Internal Medicine 10/22/22WednesdayRandee LPN [address] [place] [address] Licensed Practical Nurse Family Medicine 12/29/22 06/09/24 Becca Campos, NAY [address] [place] [address] Certified Credit Counselor Family Medicine 12/29/22 08/24/24 Hilary Frank, RN [address] [place] [address] Licensed Practical Nurse Family Medicine 06/09/24 07/21/24 Kaylen Moore LPN [address] [place] [address] 07/21/24 documented as of this encounter
--- OUTSIDE RECORDS SUMMARY | 2025-01-30 09:51 | XMS_ITS | Encounter Summary ---
Author Organization [facility] Address [address] [facility] [place] [address] Care Team Providers Care Cna Hospice Name Role Phone Shawn Barber MD Unavailable [phone] Shawn Barber MD Primary Care Provider Wednesday, Randee TILE ROOFER Unavailable [phone] Becca Campos SENIOR TELECOMMUNICATIONS SPECIALIST Unavailable Hilary Frank RN Unavailable [phone] Kalyen Moore TILE ROOFER Unavailable Encounter Details Date Type Department Care Team (Late st Contact Info) Description 11/16/2023 Abstract [facility] [place] [facility] 112 [facility] 110 [place] [address] Shawn Barber MD 112 [facility] 110 [place] [address] Social History Tobacco Use Types [...] Questionnaire-2 Score 1 11/25/2022 [facility] [place] of Occupat ional Health - Occupational Stress [...] Visit [facility] [place] [facility] [address] [facility] [address] [place] [address] Shawn Barber MD [address] [facility] 110 [place] [address] 03/15/2025 3:10 PM EST Office Visit [facility] [address] [place] [address] Colt Mendieta, DPM [address] [facility] 5 [place] [address] documented as of this encounter Visit Diagnoses Not on filedocumented in this encounter Care Teams Cna Hospice Relationship Specialty Start Date End Date Shawn Barber MD [address] [place] [address] PCP - ACO Reach 09/24/22 Shawn Barber MD [address] [place] [address] PCP - General Internal Medicine 10/22/22WednesdayRandee LPN [address] [place] [address] Licensed Practical Nurse Family Medicine 12/29/22 06/09/24 Becca Campos, NAY [address] [place] [address] Farm Operations Manager Family Medicine 12/29/22 08/24/24 Hilary Frank, RN [address] [place] [address] Licensed Practical Nurse Family Medicine 06/09/24 07/21/24 Kaylen Moore LPN [address] [place] [address] 07/21/24 documented as of this encounter
--- OUTSIDE RECORDS SUMMARY | 2025-01-30 09:51 | XMS_ITS | Encounter Summary ---
Author Organization [facility] Address [address] [place] [address] Care Team Providers Care Grapple Skidder Operator Name Role Phone Roberto, Colt DO Unavailable [phone] Meng Davila DMD, MD Unavailable [phone] Encounter Details Date Type Department Care Team (Late st Contact Info) Description 05/14/2023 Results Only [facility] Cardiology [address] [place], [place] [id number] Laura Hernández MD [address] [place] [address] Social History Tobacco Use Types Packs/Day Years Used Date Smoking Tobacco: Former Cigarettes Smokeless Tobacco: Never Alcohol Use Standard Drinks/Week Comments Not Currently 0 (1 standard drink = 0.6 oz pur e alcohol) Sexually Active Control Partners Comments Not Currently Substance Use Types Use/Week Comments Never Comments Unknown Sex and Gender Information Value Date Recorded Sex Assigned at Not on file Legal Sex Female 10:11 AM EST Gender Identity Not on file Sexual Orientation Not on file documented as of this encounter Procedure Notes * Adalberto Conklin MD - 05/14/2023 10:36 AM ESTAssociated Order(s): ECHOCARDIOGRAM REPORT Transthoracic Echocardiographic Report Name: XIAO SALAZAR Interpreting DAVID Perez Physician: : [id number] Referring PETRONA DENSI MD Physician: Age: 72 Steam Hoist Operator: Thalia Conti RDCS Exam Date: 05/14/2023 Fellow: 10:36 AM CVT: PCP: Gender: Female Height 165.1 cm Weight 65.3184 kg Encounter #: BSA 1.72 m^2 Study SICU BMI 23.96 kg/m^2 Location: Technical Fair-Good Quality: Type of Study: TTE procedure: 2D echocardiogram, M-Mode, Doppler , Color Doppler, Contrast study. Indications for Study:Hypertensive heart disease and Arrhythmia-atrial fibrillation. Tech. Comments Patient identified by name and date of . Doctor's order(s) verified. Patient's preferred language is Macedonian . Verbal consent for left heart echo contrast was obtained after explanation of the risks (05/12,000 significant and 3,000 minor allergic reactions) and benefits (needed enhancement [...] Dimension: LV Mass Index: 146 <110 Women<120 g/m^2 Men Left Atrium LA Dimension: 4.6 cm [...] See above for further details. Authenticated by: documented in this encounter Plan of Treatment Not on file documented as of this encounter Procedures Procedure Name Priority Date/Time Associated Diagnosis Comments ECHOCARDIOGRAM REPORT 05/14/2023 10:36 AM EST documented in this encounter Results * ECHOCARDIOGRAM REPORT (05/14/2023 10:36 AM EST) Left Ventricular Ejection Fraction 75 % [facility] Aortic Stenosis moderate [facility] Anatomical Region Laterality Modality Other 05/14/2023 10:3 6 AM EST Narrative Procedure Note Adalberto Conklin MD - 05/14/2023 10:36 AM EST Transthoracic Echocardiographic Report Name: XIAO SALAZAR Interpreting DAVID Perez Physician: : [id number] Referring PETRONA DENIS MD Physician: Age: 72 Steam Hoist Operator: Thalia Conti RDCS Exam Date: 05/14/2023 Fellow: 10:36 AM CVT: PCP: Gender: Female Height 165.1 cm Weight 65.3184 kg Encounter #: BSA 1.72 m^2 Study SICU BMI 23.96 kg/m^2 Location: Technical Fair-Good Quality: Type of Study: TTE procedure: 2D echocardiogram, M-Mode,Doppler , Color Doppler, Contrast study. Indications for Study:Hypertensive heart disease and Arrhythmia-atrial fibrillation. Tech. Comments Patient identified by name and date of . Doctor's order(s)verified. Patient's preferred language is Macedonian . Verbal consent for left heart echo contrast was obtained afterexplanation of the risks (1/10,000 significant and 1/3,000 minor allergic reactions)and benefits (needed enhancement of imaging) were explained. [...] Mass 251g Dimension: LV Mass Index: 146 <110Women<120 g/m^2 Men Left Atrium LA Dimension: 4.6 cm <3.92cm Right Cavities Ventricle RV (apical 4): 3.4 cm <4.3 cm Vessels Sinus of 2.5cm Valsalva: Findings/Conclusions Chambers LV Left ventricular systolic function is hyperdynamic. The left ventricular ejection fraction (LVEF) is75% +/- 5%by the biplane summation of discs (Carmona's rule) method. Left ventricular size is normal. LA The left atrial size is mildly increased. The left atrial volume index is 37 mL/m2 (normal:<35 mL/m2, mild: 35-41 mL/m2, moderate: 42-48 mL/m2, severe: >48 mL/m2). RV Normal right ventricular size and function. The tricuspid annular plane systolic excursion(TAPSE, a marker of RV systolic function) is normal at 25mm (normal >16 mm). RA Normal right atrium. Valves AV Aortic valvular stenosis is present. Peak gradient is 44 mmHg, mean gradient is 26 mmHgand the orifice is 1.2 cm2 (+/- 0.15cm2) by continuity equation (LVOTd = 2 cm, V1 = 1.4 m/s, V2 = 3.6m/s). This suggests the stenosis is moderate from the continuity equation, gradients. This stenotic aortic valve calcification ismoderate. MV Mitral annular fibrocalcific changes are presentand are mild-moderate. Peak gradient is 12 mmHg, mean gradient is 5 mmHgand the orifice is 2.4 cm2. These were at an averageheart rate of 102 bpm. Gradients are elevated across the mitral valve dueto high output state. TV There is moderate tricuspid regurgitation. The vena contracta measures 0.4 cm (significant>0.6 cm). PV Normal pulmonic valve. Great Vessels Normal sinus of Valsalva. Pericardium/Pleura No evidence of a pericardial effusion. Hemodynamics Estimated pulmonary artery systolic pressure is 60 mmHg +/- 5 mmHg. (Upper normal is <40 mmHg). Estimated RA pressure is <5 mmHg. The cardiac index is high at 6.1 L/min/m2 (normalis 2.5 to 4.3 L/min/m2: D lvot = 2 cm, TVI lvot = 33cm, HR = 102 bpm). Summary Left ventricular systolic function is hyperdynamic. The left ventricular ejection fraction (LVEF) is 75% +/- 5%. Normal RV systolic function. Moderate aortic valve stenosis. Moderate tricuspid valve regurgitation. Noninvasive hemodynamic assessment is consistent with severe pulmonary hypertension (>60 mmHg), a low CVP, a high cardiac output state. See above for further details. Authenticated by: us Laura Hernández MD EC NON-INVASIVE CARDIOVASCULAR Edited Result - Final documented in this encounter Visit Diagnoses Not on filedocumented in this encounter Additional Health Concerns Infection Onset Date Last Indicated Resolved Time C. Diff Comment:From OSH per patient 05/12/2023 05/14/2023 06/13/2023 3:07 AM EST Rule-Out C. difficile 05/14/2023 05/14/20232023 9:46 AM EST documented as of this encounter Care Teams Grapple Skidder Operator Relationship Specialty Start Date End Date Colt Mejia DO [address] [facility] [place] [address] Physician Orthopaedic Surgery 07/03/23 Meng Davila DMD, MD [address] [place] [address] Physician Oral & Maxillofacial Surgery 09/04/23 documented as of this encounter
--- OUTSIDE RECORDS SUMMARY | 2025-01-30 09:51 | XMS_ITS | Encounter Summary ---
Author Organization [facility] Address [address] [facility] [place] [address] Care Team Providers Care Care Professionals Name Role Phone Shawn Barber MD Unavailable [phone] Shawn Barber MD Primary Care Provider Wednesday, Randee PHYSICIAN SPECIALIST Unavailable [phone] Becca Campos HEMMER CHAINSTITCH Unavailable Hilary Frank RN Unavailable Kaylen Moore PHYSICIAN SPECIALIST Unavailable Encounter Details Date Type Department Care Team (Late st Contact Info) Description 11/16/2023 Abstract [facility] [place] [facility] 112 [facility] 110 [place] [address] Shawn Barber MD 112 [facility] 110 [place] [address] Social History Tobacco Use Types [...] attend chur ch or catholic services? Never 01/29/2023 Do you belong [...] Health Questionnaire-2 Score 1 11/25/2022 [facility] [place] of Occupat ional Health - Occupational Stress [...] Visit [facility] [place] [facility] [address] [facility] 110 [place] [address] Shawn Barber MD [address] [facility] 110 [place] [address] 03/15/2025 3:10 PM EST Office Visit [facility] [address] [place] [address] Colt Mendieta, DPM 3006 [facility] 5 [place] [address] documented as of this encounter Visit Diagnoses Not on filedocumented in this encounter Care Teams Care Professionals Relationship Specialty Start Date End Date Shawn Barber MD [address] [place] [address] PCP - ACO Reach 09/24/22 Shawn Barber MD [address] [place] [address] PCP - General Internal Medicine 10/22/22WednesdayRandee LPN [address] [place] [address] Licensed Practical Nurse Family Medicine 12/29/22 06/09/24 Becca Campos, NAY [address] [place] [address] Male Infertility Specialist Family Medicine 12/29/22 08/24/24 Hilary Frank, RN [address] [place] [address] Licensed Practical Nurse Family Medicine 06/09/24 07/21/24 Kaylen Moore LPN [address] [place] [address] 07/21/24 documented as of this encounter
--- OUTSIDE RECORDS SUMMARY | 2025-01-30 09:51 | XMS_ITS | Encounter Summary ---
Author Organization [facility] Address [address] [facility] [place] [address] Care Team Providers Care Winterizer Name Role Phone Shawn Barber MD Unavailable [phone] Shawn Barber MD Primary Care Provider Wednesday, Randee PUBLIC FINANCE SPECIALIST Unavailable [phone] Becca Campos PARTY BUS DRIVER Unavailable Hilary Frank RN Unavailable [phone] Kaylen Moore PUBLIC FINANCE SPECIALIST Unavailable Encounter Details Date Type Department Care Team (Late st Contact Info) Description 11/09/2023 Abstract [facility] [place] [facility] 112 [facility] 110 [place] [address] Shawn Barber MD 112 [facility] 110 [place] [address] Social History Tobacco Use Types [...] often do you attend chur ch or pentecostalism services? Never 01/29/2023 Do you belong to [...] Questionnaire-2 Score 1 11/25/2022 [facility] [place] of Occupat ional Health - Occupational Stress [...] Visit [facility] [place] [facility] [address] [facility] 110 [place] [address] Shawn Barber MD [address] [facility] 110 [place] [address] 03/15/2025 3:10 PM EST Office Visit [facility] [address] [place] [address] Colt Mendieta, DPM 3006 [facility] 5 [place] [address] documented as of this encounter Visit Diagnoses Not on filedocumented in this encounter Care Teams Winterizer Relationship Specialty Start Date End Date Shawn Barber MD [address] [place] [address] PCP - ACO Reach 09/24/22 Shawn Barber MD [address] [place] [address] PCP - General Internal Medicine 10/22/22WednesdayRandee LPN [address] [place] [address] Licensed Practical Nurse Family Medicine 12/29/22 06/09/24 Becca Campos, NAY [address] [place] [address] Gum Dipper Family Medicine 12/29/22 08/24/24 Hilary Frank, RN [address] [place] [address] Licensed Practical Nurse Family Medicine 06/09/24 07/21/24 Kaylen Moore LPN [address] [place] [address] 07/21/24 documented as of this encounter
--- OUTSIDE RECORDS SUMMARY | 2025-01-30 09:51 | XMS_ITS | Encounter Summary ---
Author Organization [facility] Address [address] [facility] [place] [address] Care Team Providers Care Cultural Historian Name Role Phone Shawn Barber MD Unavailable [phone] Shawn Barber MD Primary Care Provider [phone] Wednesday, Randee MUSIC INDUSTRY INTERN Unavailable [phone] Becca Campos MASSAGE OPERATOR Unavailable Hilary Frank RN Unavailable [phone] Kaylen Moore MUSIC INDUSTRY INTERN Unavailable Encounter Details Date Type Department Care Team (Late st Contact Info) Description 11/24/2022 Abstract [facility] [place] [facility] [address] [facility] 110 [place] [address] Shawn Barber MD 112 [facility] 110 [place] [address] Social History Tobacco Use Types [...] 2:00 PM EDT Office Visit [facility] [place] [facility] [address] [place] [address] Shawn Barber MD [address] [place] [address] 03/15/2025 3:10 PM EST Office Visit [facility] [address] [place] [address] Colt Mendieta, DPChris 3006 [facility] 5 [place] [address] documented as of this encounter Visit Diagnoses Not on filedocumented in this encounter Care Teams Cultural Historian Relationship Specialty Start Date End Date Shawn Barber MD [address] [place] [address] PCP - ACO Reach 09/24/22 Shawn Barber MD [address] [place] [address] PCP - General Internal Medicine 10/22/22WednesdayRandee LPN [address] [place] [address] Licensed Practical Nurse Family Medicine 12/29/22 06/09/24 Becca Campos, MASSAGE OPERATOR [address] [place] [address] Host Hostess Family Medicine 12/29/22 08/24/24 Hilary Frank, RN [address] [place] [address] Licensed Practical Nurse Family Medicine 06/09/24 07/21/24 Kaylen Moore LPN 112 [facility] 110 [place] [address] 07/21/24 documented as of this encounter
--- OUTSIDE RECORDS SUMMARY | 2025-01-30 09:51 | XMS_ITS | Encounter Summary ---
Author Organization [facility] Address [address] [facility] [place] [address] Care Team Providers Care Supervisor Component Assembler Name Role Phone Shawn Barber MD Unavailable [phone] Shawn Barber MD Primary Care Provider Wednesday, Randee BAIT MAKER Unavailable [phone] Becca Campos MANAGER NUCLEAR Unavailable Hilary Frank RN Unavailable Kaylen Moore BAIT MAKER Unavailable Encounter Details Date Type Department Care Team (Late st Contact Info) Description 11/08/2023 Abstract [facility] [place] [facility] 112 [facility] 110 [place] [address] Shawn Barber MD 112 [facility] 110 [place] [address] Social History Tobacco Use Types [...] attend chur ch or church services? Never 01/29/2023 Do you [...] Recorded Patient Health Questionnaire-2 Score 1 11/25/2022 [facility] [place] of Occupat ional Health - Occupational Stress [...] Visit [facility] [place] [facility] [address] [facility] 110 [place] [address] Shawn Barber MD [address] [facility] 110 [place] [address] 03/15/2025 3:10 PM EST Office Visit [facility] [address] [place] [address] Colt Mendieta, DPM 3006 [facility] 5 [place] [address] documented as of this encounter Visit Diagnoses Not on filedocumented in this encounter Care Teams Supervisor Component Assembler Relationship Specialty Start Date End Date Shawn Barber MD [address] [place] [address] PCP - ACO Reach 09/24/22 Shawn Barber MD [address] [place] [address] PCP - General Internal Medicine 10/22/22WednesdayRandee LPN [address] [place] [address] Licensed Practical Nurse Family Medicine 12/29/22 06/09/24 Becca Campos, NAY [address] [place] [address] Spacecraft Systems Engineer Family Medicine 12/29/22 08/24/24 Hilary Frank, RN [address] [place] [address] Licensed Practical Nurse Family Medicine 06/09/24 07/21/24 Kaylen Moore LPN [address] [place] [address] 07/21/24 documented as of this encounter
--- OUTSIDE RECORDS SUMMARY | 2025-01-30 09:51 | XMS_ITS | Encounter Summary ---
Author Organization [facility] Address [address] [facility] [place] [address] Care Team Providers Care Sawmill Production Worker Name Role Phone Shawn Barber MD Unavailable [phone] Shawn Barber MD Primary Care Provider Wednesday, Randee RN LPN CNA Unavailable [phone] Becca Campos JANITORIAL SUPERVISOR Unavailable Hilary Frank RN Unavailable [phone] Kaylen Moore RN LPN CNA Unavailable Encounter Details Date Type Department Care Team (Late st Contact Info) Description 11/15/2023 Abstract [facility] [place] [facility] 112 [facility] 110 [place] [address] Shawn Barber MD 112 [facility] 110 [place] [address] Social History Tobacco Use Types [...] any clubs o r organizations such as worship groups, unions, fraternal or athletic groups, or [...] Patient Health Questionnaire-2 Score 1 11/25/2022 [facility] [place] of Occupat ional Health - Occupational Stress [...] Visit [facility] [place] [facility] [address] [facility] 110 [place] [address] Shawn Barber MD [address] [facility] 110 [place] [address] 03/15/2025 3:10 PM EST Office Visit [facility] [address] [place] [address] Colt Mendieta, DPM 3006 [facility] 5 [place] [address] documented as of this encounter Visit Diagnoses Not on filedocumented in this encounter Care Teams Sawmill Production Worker Relationship Specialty Start Date End Date Shawn Barber MD [address] [place] [address] PCP - ACO Reach 09/24/22 Shawn Barber MD [address] [place] [address] PCP - General Internal Medicine 10/22/22WednesdayRandee LPN [address] [place] [address] Licensed Practical Nurse Family Medicine 12/29/22 06/09/24 Becca Campos, NAY [address] [place] [address] Media Monitor Family Medicine 12/29/22 08/24/24 Hilary Frank, RN [address] [place] [address] Licensed Practical Nurse Family Medicine 06/09/24 07/21/24 Kaylen Moore LPN [address] [place] [address] 07/21/24 documented as of this encounter
--- OUTSIDE RECORDS SUMMARY | 2025-01-30 09:51 | XMS_ITS | Encounter Summary ---
Author Organization [facility] Address [address] [facility] [place] [address] Care Team Providers Care Dramatic Agent Name Role Phone Shawn Barber MD Unavailable [phone] Shawn Barber MD Primary Care Provider Wednesday, Randee SCREEN REPAIRER CRUSHER Unavailable [phone] Becca Campos AUDIO/VIDEO ENGINEER Unavailable Hilary Frank RN Unavailable Kaylen Moore SCREEN REPAIRER CRUSHER Unavailable Encounter Details Date Type Department Care Team (Late st Contact Info) Description 11/10/2023 Abstract [facility] [place] [facility] 112 [facility] 110 [place] [address] Shawn Barber MD 112 [facility] 110 [place] [address] Social History Tobacco [...] Recorded Patient Health Questionnaire-2 Score 1 11/25/2022 [facility] [place] of Occupat ional Health - Occupational Stress [...] Visit [facility] [place] [facility] [address] [facility] 110 [place] [address] Shawn Barber MD [address] [facility] 110 [place] [address] 03/15/2025 3:10 PM EST Office Visit [facility] [address] [place] [address] Colt Mendieta, DPM 3006 [facility] 5 [place] [address] documented as of this encounter Visit Diagnoses Not on filedocumented in this encounter Care Teams Dramatic Agent Relationship Specialty Start Date End Date Shawn Barber MD [address] [place] [address] PCP - ACO Reach 09/24/22 Shawn Barber MD [address] [place] [address] PCP - General Internal Medicine 10/22/22WednesdayRandee LPN [address] [place] [address] Licensed Practical Nurse Family Medicine 12/29/22 06/09/24 Becca Campos, NAY [address] [place] [address] Ornament Maker Hand Family Medicine 12/29/22 08/24/24 Hilary Frank, RN [address] [place] [address] Licensed Practical Nurse Family Medicine 06/09/24 07/21/24 Kaylen Moore LPN [address] [place] [address] 07/21/24 documented as of this encounter
--- OUTSIDE RECORDS SUMMARY | 2025-01-30 09:51 | XMS_ITS | Encounter Summary ---
Author Organization [facility] Address [address] [facility] [place] [address] Care Team Providers Care Agency Sales Management Assistant Name Role Phone Shawn Barber MD Unavailable [phone] Shawn Barber MD Primary Care Provider [phone] Wednesday, Randee SPECIAL EDUCATION SUPERINTENDENT Unavailable [phone] Becca Campos MANAGER CRISIS Unavailable Hilary Frank RN Unavailable Kaylen Moore SPECIAL EDUCATION SUPERINTENDENT Unavailable Encounter Details Date Type Department Care Team (Late st Contact Info) Description 11/16/2023 Abstract [facility] [place] [facility] 112 [facility] 110 [place] [address] Shawn Barber MD 112 [facility] 110 [place] [address] Social History Tobacco Use Types [...] often do you attend chur ch or orthodox services? Never 01/29/2023 Do you belong [...] Recorded Patient Health Questionnaire-2 Score 1 11/25/2022 [facility] of Occupat ional Health - Occupational Stress [...] Visit [facility] [place] [facility] [address] [facility] 110 [place] [address] Shawn Barber MD [address] [facility] 110 [place] [address] 03/15/2025 3:10 PM EST Office Visit [facility] [address] [place] [address] Colt Mendieta, DPM 3006 [facility] [place] 5 [place] [address] documented as of this encounter Visit Diagnoses Not on filedocumented in this encounter Care Teams Agency Sales Management Assistant Relationship Specialty Start Date End Date Shawn Barber MD [address] [place] [address] PCP - ACO Reach 09/24/22 Shawn Barber MD [address] [place] [address] PCP - General Internal Medicine 10/22/22WednesdayRandee LPN [address] [place] [address] Licensed Practical Nurse Family Medicine 12/29/22 06/09/24 Becca Campos, NAY [address] [place] [address] Coil Winding Machines Set Up Mechanic Family Medicine 12/29/22 08/24/24 Hilary Frank, RN [address] [place] [address] Licensed Practical Nurse Family Medicine 06/09/24 07/21/24 Kaylen Moore LPN [address] [place] [address] 07/21/24 documented as of this encounter
--- OUTSIDE RECORDS SUMMARY | 2025-01-30 09:51 | XMS_ITS | Encounter Summary ---
Author Organization [facility] Address [address] [facility] [place] [address] Care Team Providers Care Bookmobile Librarian Name Role Phone Shawn Barber MD Unavailable [phone] Shawn Barber MD Primary Care Provider Wednesday, Randee TRAINING ASSOCIATE Unavailable [phone] Becca Campos POWER EQUIPMENT MECHANICS INSTRUCTOR Unavailable Hilary Frank RN Unavailable Kaylen Moore TRAINING ASSOCIATE Unavailable Encounter Details Date Type Department Care Team (Late st Contact Info) Description 11/16/2023 Abstract [facility] [place] [facility] 112 [facility] 110 [place] [address] Shawn Barber MD [address] [facility] 110 [place] [address] Social History Tobacco Use Types [...] any clubs o r organizations such as baptism groups, unions, fraternal or athletic groups, or [...] Patient Health Questionnaire-2 Score 1 11/25/2022 [facility] of Occupat ional Health - Occupational Stress [...] 2:00 PM EDT Office Visit [facility] [place] [facility] [address] [facility] 110 [place] [address] Shawn Barber MD [address] [facility] 110 [place] [address] 03/15/2025 3:10 PM EST Office Visit [facility] [address] [place] [address] Colt Mendieta, DPM 3006 [facility] 5 [place] [address] documented as of this encounter Visit Diagnoses Not on filedocumented in this encounter Care Teams Bookmobile Librarian Relationship Specialty Start Date End Date Shawn Barber MD [address] [place] [address] PCP - ACO Reach 09/24/22 Shawn Barber MD [address] [place] [address] PCP - General Internal Medicine 10/22/22WednesdayRandee LPN [address] [place] [address] Licensed Practical Nurse Family Medicine 12/29/22 06/09/24 Becca Campos, NAY [address] [place] [address] Infirmary Attendant Family Medicine 12/29/22 08/24/24 Hilary Frank, RN [address] [place] [address] Licensed Practical Nurse Family Medicine 06/09/24 07/21/24 Kaylen Moore LPN [address] [place] [address] 07/21/24 documented as of this encounter
--- OUTSIDE RECORDS SUMMARY | 2025-01-30 09:51 | XMS_ITS | Encounter Summary ---
Author Organization [facility] Address [address] [facility] [place] [address] Care Team Providers Care Can Bander Operator Name Role Phone Shawn Barber MD Unavailable [phone] Shawn Barber MD Primary Care Provider Wednesday, Randee WOOLEN SUITING SHRINKER Unavailable [phone] Becca Campos STUDIO MANAGER Unavailable Hilary Frank RN Unavailable [phone] Kaylen Moore WOOLEN SUITING SHRINKER Unavailable Encounter Details Date Type Department Care Team (Late st Contact Info) Description 11/09/2023 Abstract [facility] [place] [facility] 112 [facility] 110 [place] [address] Shawn Barber MD 112 [facility] 110 [place] [address] Social History Tobacco Use Types [...] Questionnaire-2 Score 1 11/25/2022 [facility] [place] of Occupat ional Health - Occupational Stress [...] Visit [facility] [place] [facility] [address] [facility] 110 [place] [address] Shawn Barber MD [address] [facility] 110 [place] [address] 03/15/2025 3:10 PM EST Office Visit [facility] [address] [place] [address] Colt Mendieta, DPM 3006 [facility] 5 [place] [address] documented as of this encounter Visit Diagnoses Not on filedocumented in this encounter Care Teams Can Bander Operator Relationship Specialty Start Date End Date Shawn Barber MD [address] [place] [address] PCP - ACO Reach 09/24/22 Shawn Barber MD [address] [place] [address] PCP - General Internal Medicine 10/22/22WednesdayRandee LPN [address] [place] [address] Licensed Practical Nurse Family Medicine 12/29/22 06/09/24 Becca Campos, NAY [address] [place] [address] Farm Service Adviser Family Medicine 12/29/22 08/24/24 Hilary Frank, RN [address] [place] [address] Licensed Practical Nurse Family Medicine 06/09/24 07/21/24 Kaylen Moore LPN [address] [place] [address] 07/21/24 documented as of this encounter
--- OUTSIDE RECORDS SUMMARY | 2025-01-30 09:51 | XMS_ITS | Encounter Summary ---
Author Organization [facility] Address [address] [facility] [place] [address] Care Team Providers Care Cafe Aide Name Role Phone Shawn Barber MD Unavailable [phone] Shawn Barber MD Primary Care Provider [phone] Wednesday, Randee HEDIS REGISTERED NURSE RN Unavailable [phone]IAISON Unavailable [phone] Hilary Frank RN Unavailable Kaylen Moore HEDIS REGISTERED NURSE RN Unavailable Encounter Details Date Type Department Care Team (Late st Contact Info) Description 11/16/2023 Abstract [facility] [place] [facility] 112 [facility] 110 [place] [address] Shawn Barber MD 112 [facility] 110 [place] [address] Social History Tobacco Use [...] often do you attend chur ch or orthodoxy services? Never 01/29/2023 Do you belong to [...] Recorded Patient Health Questionnaire-2 Score 1 11/25/2022 [facility] [place] of Occupat ional Health - Occupational Stress [...] Visit [facility] [place] [facility] [address] [facility] 110 [place] [address] Shawn Barber MD [address] [facility] 110 [place] [address] 03/15/2025 3:10 PM EST Office Visit [facility] [address] [place] [address] Colt Mendieta, DPM 3006 [facility] 5 [place] [address] documented as of this encounter Visit Diagnoses Not on filedocumented in this encounter Care Teams Cafe Aide Relationship Specialty Start Date End Date Shawn Barber MD [address] [place] [address] PCP - ACO Reach 09/24/22 Shawn Barber MD [address] [place] [address] PCP - General Internal Medicine 10/22/22WednesdayRandee LPN [address] [place] [address] Licensed Practical Nurse Family Medicine 12/29/22 06/09/24 Becca Campos, NAY [address] [place] [address] Hedis Registered Nurse Rn Family Medicine 12/29/22 08/24/24 Hilary Frank, RN [address] [place] [address] Licensed Practical Nurse Family Medicine 06/09/24 07/21/24 Kaylen Moore LPN [address] [place] [address] 07/21/24 documented as of this encounter
--- OUTSIDE RECORDS SUMMARY | 2025-01-30 09:51 | XMS_ITS | Encounter Summary ---
Author Organization [facility] Address [address] [facility] [place] [address] Care Team Providers Care Engine Head Repairer Name Role Phone Shawn Barber MD Unavailable [phone] Shawn Barber MD Primary Care Provider [phone] Wednesday, Randee BOOKING SUPERVISOR Unavailable [phone] Becca Campos MARKET RESEARCH COORDINATOR Unavailable [phone] Hilary Frank RN Unavailable Kaylen Moore BOOKING SUPERVISOR Unavailable Encounter Details Date Type Department Care Team (Late st Contact Info) Description 11/16/2023 Abstract [facility] [place] [facility] 112 [facility] 110 [place] [address] Shawn Barber MD 112 [facility] 110 [place] [address] Social History Tobacco Use Types [...] any clubs o r organizations such as druze groups, unions, fraternal or athletic groups, or [...] Health Questionnaire-2 Score 1 11/25/2022 [facility] of Occupat ional Health - Occupational Stress [...] Visit [facility] [place] [facility] [address] [facility] 110 [place] [address] Shawn Barber MD [address] [facility] 110 [place] [address] 03/15/2025 3:10 PM EST Office Visit [facility] [address] [place] [address] Colt Mendieta, DPM 3006 [facility] 5 [place] [address] documented as of this encounter Visit Diagnoses Not on filedocumented in this encounter Care Teams Engine Head Repairer Relationship Specialty Start Date End Date Shawn Barber MD [address] [place] [address] PCP - ACO Reach 09/24/22 Shawn Barber MD [address] [place] [address] PCP - General Internal Medicine 10/22/22WednesdayRandee LPN [address] [place] [address] Licensed Practical Nurse Family Medicine 12/29/22 06/09/24 Becca Campos, NAY [address] [place] [address] Household Assistant Family Medicine 12/29/22 08/24/24 Hilary Frank, RN [address] [place] [address] Licensed Practical Nurse Family Medicine 06/09/24 07/21/24 Kaylen Moore LPN [address] [place] [address] 07/21/24 documented as of this encounter
--- OUTSIDE RECORDS SUMMARY | 2025-01-30 09:51 | XMS_ITS | Encounter Summary ---
Author Organization [facility] Address [address] [facility] [place] [address] Care Team Providers Care Medical Concierge Name Role Phone Shawn Barber MD Unavailable [phone] Shawn Barber MD Primary Care Provider Wednesday, Randee SHERIFF'S OFFICER Unavailable [phone] Becca Campos BANKING OFFICER Unavailable Hilary Frank RN Unavailable [phone] Kaylen Moore SHERIFF'S OFFICER Unavailable Encounter Details Date Type Department Care Team (Late st Contact Info) Description 11/15/2023 Abstract [facility] [place] [facility] 112 [facility] 110 [place] [address] Shawn Barber MD 112 [facility] 110 [place] [address] Social History Tobacco Use Types [...] Recorded Patient Health Questionnaire-2 Score 1 11/25/2022 [facility] of Occupat ional Health - Occupational Stress [...] Visit [facility] [place] [facility] [address] [facility] 110 [place] [address] Shawn Barber MD [address] [facility] 110 [place] [address] 03/15/2025 3:10 PM EST Office Visit [facility] [address] [place] [address] Colt Mendieta, DPM 3006 [facility] 5 [place] [address] documented as of this encounter Visit Diagnoses Not on filedocumented in this encounter Care Teams Medical Concierge Relationship Specialty Start Date End Date Shawn Barber MD [address] [place] [address] PCP - ACO Reach 09/24/22 Shawn Barber MD [address] [place] [address] PCP - General Internal Medicine 10/22/22WednesdayRandee LPN [address] [place] [address] Licensed Practical Nurse Family Medicine 12/29/22 06/09/24 Becca Campos, NAY [address] [place] [address] Field Trainer Family Medicine 12/29/22 08/24/24 Hilary Frank, RN [address] [place] [address] Licensed Practical Nurse Family Medicine 06/09/24 07/21/24 Kaylen Moore LPN [address] [place] [address] 07/21/24 documented as of this encounter
--- OUTSIDE RECORDS SUMMARY | 2025-01-30 09:51 | XMS_ITS | Encounter Summary ---
Author Organization [facility] Address [address] [facility] [place] [address] Care Team Providers Care Hydrostatic Tester Name Role Phone Shawn Barber MD Unavailable [phone] Shawn Barber MD Primary Care Provider Wednesday, Randee MOLD WORKER Unavailable [phone] Becca Campos PODIATRIST ASSISTANT Unavailable Hilary Frank RN Unavailable Kaylen Moore MOLD WORKER Unavailable Encounter Details Date Type Department Care Team (Late st Contact Info) Description 11/16/2023 Abstract [facility] [place] [facility] 112 [facility] 110 [place] [address] Shawn Barber MD 112 [facility] 110 [place] [address] Social History Tobacco Use Types [...] Recorded Patient Health Questionnaire-2 Score 1 11/25/2022 [facility] [place] of Occupat ional Health - Occupational Stress [...] Visit [facility] [place] [facility] [address] [facility] 110 [place] [address] Shawn Barber MD [address] [facility] 110 [place] [address] 03/15/2025 3:10 PM EST Office Visit [facility] [address] [place] [address] Colt Mendieta, DPM 3006 [facility] 5 [place] [address] documented as of this encounter Visit Diagnoses Not on filedocumented in this encounter Care Teams Hydrostatic Tester Relationship Specialty Start Date End Date Shawn Barber MD [address] [place] [address] PCP - ACO Reach 09/24/22 Shawn Barber MD [address] [place] [address] PCP - General Internal Medicine 10/22/22WednesdayRandee LPN [address] [place] [address] Licensed Practical Nurse Family Medicine 12/29/22 06/09/24 Becca Campos, NAY [address] [place] [address] Associate Merchandise Planner Family Medicine 12/29/22 08/24/24 Hilary Frank, RN [address] [place] [address] Licensed Practical Nurse Family Medicine 06/09/24 07/21/24 Kaylen Moore LPN [address] [place] [address] 07/21/24 documented as of this encounter
--- OUTSIDE RECORDS SUMMARY | 2025-01-30 09:51 | XMS_ITS | Encounter Summary ---
Author Organization [facility] Address [address] [facility] [place] [place] [address] Care Team Providers Care Overseer Kosher Kitchen Name Role Phone Shawn Barber MD Unavailable [phone] Shawn Barber MD Primary Care Provider Wednesday, Randee ENGRAVER FLATWARE Unavailable [phone] Becca Campos WINDOWS APPLICATION ADMINISTRATOR Unavailable Hilary Frank RN Unavailable Kaylen Moore ENGRAVER FLATWARE Unavailable Encounter Details Date Type Department Care Team (Late st Contact Info) Description 11/15/2023 Abstract [facility] [place] [facility] 112 [facility] 110 [place] [address] Shawn Barber MD 112 [facility] 110 [place] [address] Social History Tobacco Use Types [...] often do you attend chur ch or religion services? Never 01/29/2023 Do you belong to any clubs o r organizations such as sikh groups, unions, fraternal or athletic groups, or [...] Recorded Patient Health Questionnaire-2 Score 1 11/25/2022 [facility] [place] of Occupat ional Health - Occupational Stress [...] Visit [facility] [place] [facility] [address] [facility] 110 [place] [address] Shawn Barber MD [address] [facility] 110 [place] [address] 03/15/2025 3:10 PM EST Office Visit [facility] [address] [place] [address] Colt Mendieta, DPM 3006 [facility] 5 [place] [address] documented as of this encounter Visit Diagnoses Not on filedocumented in this encounter Care Teams Overseer Kosher Kitchen Relationship Specialty Start Date End Date Shawn Barber MD [address] [place] [address] PCP - ACO Reach 09/24/22 Shawn Barber MD [address] [place] [address] PCP - General Internal Medicine 10/22/22WednesdayRandee LPN [address] [place] [address] Licensed Practical Nurse Family Medicine 12/29/22 06/09/24 Becca Campos, NAY [address] [place] [address] [address] Associate Family Medicine 12/29/22 08/24/24 Hilary Frank, RN [address] [place] [address] Licensed Practical Nurse Family Medicine 06/09/24 07/21/24 Kaylen Moore LPN [address] [place] [address] 07/21/24 documented as of this encounter
--- OUTSIDE RECORDS SUMMARY | 2025-01-30 09:51 | XMS_ITS | Encounter Summary ---
Author Organization [facility] Address [address] [facility] [place] [address] Care Team Providers Care Graphic Engineer Name Role Phone Shawn Barber MD Unavailable [phone] Shawn Barber MD Primary Care Provider [phone] Wednesday, Randee GUMMING MACHINE OPERATOR Unavailable [phone] Becca Campos MOUSE BREEDER Unavailable [phone] iHlary Frank RN Unavailable Kaylen Moore GUMMING MACHINE OPERATOR Unavailable Encounter Details Date Type Department Care Team (Late st Contact Info) Description 11/24/2022 Abstract [facility] [place] [facility] [address] [facility] 110 [place] [address] Shawn Barber MD 112 [facility] 110 [place] [address] Social History Tobacco Use Types [...] [address] [place] [address] Shawn Barber MD [address] [place] [address] 03/15/2025 3:10 PM EST Office Visit [facility] [address] [place] [address] Colt Mendieta, DPChris 3006 [facility] 5 [place] [address] documented as of this encounter Visit Diagnoses Not on filedocumented in this encounter Care Teams Graphic Engineer Relationship Specialty Start Date End Date Shawn Barber MD [address] [place] [address] PCP - ACO Reach 09/24/22 Shawn Barber MD [address] [place] [address] PCP - General Internal Medicine 10/22/22WednesdayRandee LPN [address] [place] [address] Licensed Practical Nurse Family Medicine 12/29/22 06/09/24 Becca Campos, MOUSE BREEDER [address] [place] [address] Bill Adjuster Family Medicine 12/29/22 08/24/24 Hilary Frank, RN [address] [place] [address] Licensed Practical Nurse Family Medicine 06/09/24 07/21/24 Kaylen Moore LPN 112 [facility] 110 [place] [address] 07/21/24 documented as of this encounter
--- OUTSIDE RECORDS SUMMARY | 2025-01-30 09:51 | XMS_ITS | Encounter Summary ---
Author Organization [facility] Address [address] [facility] [place] [address] Care Team Providers Care Forklift Mechanic Name Role Phone Shawn Barber MD Unavailable [phone] Shawn Barber MD Primary Care Provider [phone] Wednesday, Randee GRAPHIC EDITOR Unavailable [phone] Becca Campos ELECTROMECHANIC Unavailable [phone] Hilary Frank RN Unavailable Kaylen Mooer GRAPHIC EDITOR Unavailable Encounter Details Date Type Department Care Team (Late st Contact Info) Description 11/09/2023 Abstract [facility] [place] [facility] 112 [facility] 110 [place] [address] Shawn Barber MD 112 [facility] 110 [place] [address] Social History Tobacco Use Types [...] Recorded Patient Health Questionnaire-2 Score 1 11/25/2022 [facility] of Occupat ional Health - Occupational Stress [...] Visit [facility] [place] [facility] [address] [facility] 110 [place] [address] Shawn Barber MD [address] [facility] 110 [place] [address] 03/15/2025 3:10 PM EST Office Visit [facility] [address] [place] [address] Colt Mendieta, DPM 3[address] [facility] 5 [place] [address] documented as of this encounter Visit Diagnoses Not on filedocumented in this encounter Care Teams Forklift Mechanic Relationship Specialty Start Date End Date Shawn Barber MD [address] [place] [address] PCP - ACO Reach 09/24/22 Shawn Barber MD [address] [place] [address] PCP - General Internal Medicine 10/22/22WednesdayRandee LPN [address] [place] [address] Licensed Practical Nurse Family Medicine 12/29/22 06/09/24 Becca Campos, NAY [address] [place] [address] Saturator Operator Family Medicine 12/29/22 08/24/24 Hilary Frank, RN [address] [place] [address] Licensed Practical Nurse Family Medicine 06/09/24 07/21/24 Kaylen Moore LPN [address] [place] [address] 07/21/24 documented as of this encounter
--- OUTSIDE RECORDS SUMMARY | 2025-01-30 09:51 | XMS_ITS ---
Author Organization [facility] Address [address] [place] [address] Care Team Providers Care V Belt Curer Name Role Phone Shawn Barber MD Unavailable [phone] Shawn Barber MD Primary Care Provider [phone] Kaylen Moore LPN Unavailable Chronic Care Management (CCM) Status:Enrolled (Active) [...] Name Relationship Phone Kaylen Moore LPN(Responsible Staff) [phone] Continued Care and Services Coordination
--- OUTSIDE RECORDS SUMMARY | 2025-01-30 09:51 | XMS_ITS | Encounter Summary ---
Author Organization [facility] Address [address] [facility] [place] [address] Care Team Providers Care Wrinkle Chaser Name Role Phone Shawn Barber MD Unavailable [phone] Shawn Barber MD Primary Care Provider [phone] Wednesday, Randee ELASTIC YARN TWISTER HELPER Unavailable [phone] Becca Campos PIECE DYER Unavailable [phone] Hilary Frank RN Unavailable [phone] Kaylen Moore ELASTIC YARN TWISTER HELPER Unavailable Encounter Details Date Type Department Care Team (Late st Contact Info) Description 01/12/2024 Abstract [facility] [place] [facility] [address] [facility] 110 [place] [id number] Shawn Barber MD 112 [facility] 110 [place], [place] [address] Social History Tobacco Use Types Packs/Day Years [...] often do you attend chur ch or adventist services? Never 12/06/2023 Do you belong to any clubs o r organizations such as jewish groups, unions, fraternal or athletic groups, or [...] any time in the past 12 m [facility], were you homeless or living in a long-term (including now)? No 12/06/2023 Comments Unknown Sex [...] [address] [place] [address] Shawn Barber MD [address] [place] [address] 03/15/2025 3:10 PM EST Office Visit [facility] [address] [place] [address] Colt Mendieta, DPM 3006 [facility] 5 [place] [address] documented as of this encounter Visit Diagnoses Not on filedocumented in this encounter Care Teams Wrinkle Chaser Relationship Specialty Start Date End Date Shawn Barber MD [address] [place] [address] PCP - ACO Reach 09/24/22 Shawn Barber MD [address] [place] [address] PCP - General Internal Medicine 10/22/22WednesdayRandee LPN [address] [place] [address] Licensed Practical Nurse Family Medicine 12/29/22 06/09/24 Becca Campos LSW [address] [place] [address] Faculty Research Physician Family Medicine 12/29/22 08/24/24 Hilary Frank, RN [address] [place] [address] Licensed Practical Nurse Family Medicine 06/09/24 07/21/24 Kaylen Moore LPN [address] [place] [address] 07/21/24 documented as of this encounter
--- OUTSIDE RECORDS SUMMARY | 2025-01-30 09:51 | XMS_ITS | Encounter Summary ---
Author Organization [facility] Address [address] [facility] [place] [address] Care Team Providers Care Day Care Home Mother Name Role Phone Shawn Barber MD Unavailable [phone] Shawn Barber MD Primary Care Provider [phone] Wednesday, Randee NATIONAL ACCOUNTS SALES Unavailable [phone] Becca Campos DIRECTOR LIFE SALES Unavailable Hilary Frank RN Unavailable [phone] Kaylen Moore NATIONAL ACCOUNTS SALES Unavailable Encounter Details Date Type Department Care Team (Late st Contact Info) Description 11/25/2022 Abstract [facility] [place] [facility] [address] [facility] 110 [place] [address] Shawn Barber MD 112 [facility] 110 [place] [address] Social History Tobacco Use Types [...] [address] [place] [address] Shawn Barber MD [address] [place] [address] 03/15/2025 3:10 PM EST Office Visit [facility] [address] [place] [address] Colt Mendieta, DPChris 3006 [facility] 5 [place] [address] documented as of this encounter Visit Diagnoses Not on filedocumented in this encounter Care Teams Day Care Home Mother Relationship Specialty Start Date End Date Shawn Barber MD [address] [place] [address] PCP - ACO Reach 09/24/22 Shawn Barber MD [address] [place] [address] PCP - General Internal Medicine 10/22/22WednesdayRandee LPN [address] [place] [address] Licensed Practical Nurse Family Medicine 12/29/22 06/09/24 Becca Campos, DIRECTOR LIFE SALES [address] [place] [address] Supervisor Residential Family Medicine 12/29/22 08/24/24 Hilary Frank, RN [address] [place] [address] Licensed Practical Nurse Family Medicine 06/09/24 07/21/24 Kaylen Moore LPN 112 [facility] 110 [place] [address] 07/21/24 documented as of this encounter
--- OUTSIDE RECORDS SUMMARY | 2025-01-30 09:51 | XMS_ITS | Encounter Summary ---
Author Organization [facility] Address [address] [facility] [place] [address] Care Team Providers Care Accelerator Operator Name Role Phone Shawn Barber MD Unavailable [phone] Shawn Barber MD Primary Care Provider [phone] Wednesday, Randee TWISTING DEPARTMENT END FINDER Unavailable [phone] Becca Campos ACCOUNT PLANNER Unavailable Hilary Frank RN Unavailable Kaylen Moore TWISTING DEPARTMENT END FINDER Unavailable Encounter Details Date Type Department Care Team (Late st Contact Info) Description 11/16/2023 Abstract [facility] [place] [facility] 112 [facility] 110 [place] [address] Shawn Barber MD 112 [facility] 110 [place] [address] Social History Tobacco Use Types [...] any clubs o r organizations such as anabaptist groups, unions, fraternal or athletic groups, or [...] Health Questionnaire-2 Score 1 11/25/2022 [facility] of Occupat ional Health - Occupational Stress [...] Visit [facility] [place] [facility] [address] [facility] 110 [place] [address] Shawn Barber MD [address] [facility] 110 [place] [address] 03/15/2025 3:10 PM EST Office Visit [facility] [address] [place] [address] Colt Mendieta, DPM 3006 [facility] 5 [place] [address] documented as of this encounter Visit Diagnoses Not on filedocumented in this encounter Care Teams Accelerator Operator Relationship Specialty Start Date End Date Shawn Barber MD [address] [place] [address] PCP - ACO Reach 09/24/22 Shawn Barber MD [address] [place] [address] PCP - General Internal Medicine 10/22/22WednesdayRandee LPN [address] [place] [address] Licensed Practical Nurse Family Medicine 12/29/22 06/09/24 Becca Campos, NAY [address] [place] [address] Digital Photo Printer Family Medicine 12/29/22 08/24/24 Hilary Frank, RN [address] [place] [address] Licensed Practical Nurse Family Medicine 06/09/24 07/21/24 Kaylen Moore LPN [address] [place] [address] 07/21/24 documented as of this encounter
--- OUTSIDE RECORDS SUMMARY | 2025-01-30 09:51 | XMS_ITS | Encounter Summary ---
Author Organization [facility] Address [address] [facility] [place] [address] Care Team Providers Care Engineering Secretary Name Role Phone Shawn Barber MD Unavailable [phone] Shawn Barber MD Primary Care Provider Wednesday, Randee PULMONOLOGY TECHNICIAN Unavailable [phone] Becca Campos ANALYTICAL STATISTICIAN Unavailable Hilary Frank RN Unavailable Kaylen Moore PULMONOLOGY TECHNICIAN Unavailable Encounter Details Date Type Department Care Team (Late st Contact Info) Description 11/09/2023 Abstract [facility] [place] [facility] 112 [facility] 110 [place] [address] Shawn Barber MD 112 [facility] 110 [place] [address] Social History Tobacco Use Types [...] Recorded Patient Health Questionnaire-2 Score 1 11/25/2022 [facility] [place] of Occupat ional Health - Occupational Stress [...] Visit [facility] [place] [facility] [address] [facility] 110 [place] [address] Shawn Barber MD [address] [facility] 110 [place] [address] 03/15/2025 3:10 PM EST Office Visit [facility] [address] [place] [address] Colt Mendieta, DPM 3006 [facility] 5 [place] [address] documented as of this encounter Visit Diagnoses Not on filedocumented in this encounter Care Teams Engineering Secretary Relationship Specialty Start Date End Date Shawn Barber MD [address] [place] [address] PCP - ACO Reach 09/24/22 Shawn Barber MD [address] [place] [address] PCP - General Internal Medicine 10/22/22WednesdayRandee LPN [address] [place] [address] Licensed Practical Nurse Family Medicine 12/29/22 06/09/24 Becca Campos, NAY [address] [place] [address] Wheat Shipper Family Medicine 12/29/22 08/24/24 Hilary Frank, RN [address] [place] [address] Licensed Practical Nurse Family Medicine 06/09/24 07/21/24 Kaylen Moore LPN [address] [place] [address] 07/21/24 documented as of this encounter
--- OUTSIDE RECORDS SUMMARY | 2025-01-30 09:52 | XMS_ITS | Encounter Summary ---
Author Organization [facility] Address [address] [facility] [place] [address] Care Team Providers Care Filler Blender Name Role Phone Shawn Barber MD Unavailable [phone] Shawn Barber MD Primary Care Provider Wednesday, Randee CASE MANAGER SPECIALIST Unavailable [phone] Becca Campos PRECISION LATHE OPERATOR Unavailable Hilary Frank RN Unavailable Kaylen Moore CASE MANAGER SPECIALIST Unavailable Encounter Details Date Type Department Care Team (Late st Contact Info) Description 12/14/[address] [place] [facility] [address] [facility] 110 [place] [address] Shawn Barber MD 112 [facility] 110 [place], [place] [address] Social History Tobacco Use Types Packs/Day Years [...] chur ch or jehovah's witness services? Never 12/06/2023 Do you belong to [...] Recorded Patient Health Questionnaire-2 Score 1 11/25/2022 [facility] of Occupat ional Health - [...] any time in the past 12 m [facility], were you homeless or living in a long term (including now)? No 12/06/2023 Comments Unknown Sex [...] [address] [place] [address] Shawn Barber MD [address] [place] [address] 03/15/2025 3:10 PM EST Office Visit [facility] [address] [place] [address] Colt Mendieta, DPM 3006 [facility] 5 [place] [address] documented as of this encounter Visit Diagnoses Not on filedocumented in this encounter Care Teams Filler Blender Relationship Specialty Start Date End Date Shawn Barber MD [address] [place] [address] PCP - ACO Reach 09/24/22 Shawn Barber MD [address] [place] [address] PCP - General Internal Medicine 10/22/22WednesdayRandee LPN [address] [place] [address] Licensed Practical Nurse Family Medicine 12/29/22 06/09/24 Becca Campos LSW [address] [place] [address] Director Recreation Family Medicine 12/29/22 08/24/24 Hilary Frank, RN [address] [place] [address] Licensed Practical Nurse Family Medicine 06/09/24 07/21/24 Kaylen Moore LPN [address] [place] [address] 07/21/24 documented as of this encounter
--- OUTSIDE RECORDS SUMMARY | 2025-01-30 09:52 | XMS_ITS | Encounter Summary ---
Author Organization [facility] Address [address] [facility] [place] [address] Care Team Providers Care Funeral Car Chauffeur Name Role Phone Shawn Barber MD Unavailable [phone] hSawn Barber MD Primary Care Provider Wednesday, Randee SHANK PINNER Unavailable [phone] Becca Campos CHEMICAL DEPENDENCY THERAPIST Unavailable Hilary Frank RN Unavailable Kaylen Moore SHANK PINNER Unavailable Encounter Details Date Type Department Care Team (Late st Contact Info) Description 12/10/2023 Abstract [facility] [place] [facility] 112 [facility] 110 [place] [address] Shawn Barber MD 112 [facility] 110 [place], [place] [address] Social History Tobacco Use Types Packs/Day Years [...] attend chur ch or caodaism services? Never 12/06/2023 Do you belong to [...] Recorded Patient Health Questionnaire-2 Score 1 11/25/2022 [facility] of Occupat ional Health - Occupational [...] were you homeless or living in a longterm (including now)? No 12/06/2023 Comments Unknown Sex [...] [address] [place] [address] Shawn Barber MD [address] [place] [address] 03/15/2025 3:10 PM EST Office Visit [facility] [address] [place] [address] Colt Mendieta, DPM 3006 [facility] 5 [place] [address] documented as of this encounter Visit Diagnoses Not on filedocumented in this encounter Care Teams Funeral Car Chauffeur Relationship Specialty Start Date End Date Shawn Barber MD [address] [place] [address] PCP - ACO Reach 09/24/22 Shawn Barber MD [address] [place] [address] PCP - General Internal Medicine 10/22/22WednesdayRandee LPN [address] [place] [address] Licensed Practical Nurse Family Medicine 12/29/22 06/09/24 Becca Campos LSW [address] [place] [address] Talent Specialist Family Medicine 12/29/22 08/24/24 Hilary Frank, RN [address] [place] [address] Licensed Practical Nurse Family Medicine 06/09/24 07/21/24 Kaylen Moore LPN [address] [place] [address] 07/21/24 documented as of this encounter
--- OUTSIDE RECORDS SUMMARY | 2025-01-30 09:52 | XMS_ITS | Encounter Summary ---
Author Organization [facility] Address [address] [facility] [place] [address] Care Team Providers Care Knobber Name Role Phone Shawn Barber MD Unavailable [phone] Shawn Barber MD Primary Care Provider Wednesday, Randee REMELT SUGAR BOILER Unavailable [phone] Becca Campos SCIENTIFIC ASSOCIATE Unavailable Hilary Frank RN Unavailable [phone] Kaylen Moore REMELT SUGAR BOILER Unavailable Encounter Details Date Type Department Care Team (Late st Contact Info) Description 11/23/2022 Abstract [facility] [place] [facility] [address] [facility] 110 [place] [address] Shawn Barber MD 112 [facility] 110 [place] [address] Social History Tobacco Use Types [...] [address] [place] [address] Shawn Barber MD [address] [place] [address] [place] [address] 03/15/2025 3:10 PM EST Office Visit [facility] [address] [place] [address] Colt Mendieta, DPChris 3006 [facility] 5 [place] [address] documented as of this encounter Visit Diagnoses Not on filedocumented in this encounter Care Teams Knobber Relationship Specialty Start Date End Date Shawn Barber MD [address] [place] [address] PCP - ACO Reach 09/24/22 Shawn Barber MD [address] [place] [address] PCP - General Internal Medicine 10/22/22WednesdayRandee LPN [address] [place] [address] Licensed Practical Nurse Family Medicine 12/29/22 06/09/24 Becca Campos, SCIENTIFIC ASSOCIATE [address] [place] [address] Field Service Supervisor Family Medicine 12/29/22 08/24/24 Hilary Frank, RN [address] [place] [address] Licensed Practical Nurse Family Medicine 06/09/24 07/21/24 Kaylen Moore LPN 112 [facility] 110 [place] [address] 07/21/24 documented as of this encounter
--- OUTSIDE RECORDS SUMMARY | 2025-01-30 09:52 | XMS_ITS | Encounter Summary ---
Author Organization [facility] Address [address] [facility] [place] [address] Care Team Providers Care Starch Mangle Tender Name Role Phone Shawn Barber MD Unavailable [phone] Shawn Barber MD Primary Care Provider [phone] Wednesday, Randee SURG NURSE Unavailable [phone] Becca Campos EXPLOSIVES TRUCK DRIVER Unavailable Hilary Frank RN Unavailable Kaylen Moore SURG NURSE Unavailable Encounter Details Date Type Department Care Team (Late st Contact Info) Description 12/09/2023 Abstract [facility] [place] [facility] [address] [facility] 110 [place] [address] Shawn Barber MD 112 [facility] 110 [place] [address] Social History Tobacco Use Types [...] often do you attend chur ch or baptist services? Never 12/06/2023 Do you belong to [...] Score 1 11/25/2022 [facility] of Occupat ional Health - Occupational [...] any time in the past 12 m [facility], were you homeless or living in [...] [address] [place] [address] Shawn Barber MD [address] [place] [address] 03/15/2025 3:10 PM EST Office Visit [facility] [address] [place] [address] Colt Mendieta, DPM 3006 [facility] 5 [place] [address] documented as of this encounter Visit Diagnoses Not on filedocumented in this encounter Care Teams Starch Mangle Tender Relationship Specialty Start Date End Date Shawn Barber MD [address] [place] [address] PCP - ACO Reach 09/24/22 Shawn Barber MD [address] [place] [address] PCP - General Internal Medicine 10/22/22WednesdayRandee LPN [address] [place] [address] Licensed Practical Nurse Family Medicine 12/29/22 06/09/24 Becca Campos LSW [address] [place] [address] Dictaphone Technician Family Medicine 12/29/22 08/24/24 Hilary Frank, RN [address] [place] [address] Licensed Practical Nurse Family Medicine 06/09/24 07/21/24 Kaylen Moore LPN [address] [place] [address] 07/21/24 documented as of this encounter
--- OUTSIDE RECORDS SUMMARY | 2025-01-30 09:52 | XMS_ITS | Encounter Summary ---
Author Organization [facility] Address [address] [facility] [place] [address] Care Team Providers Care Joist Setter Name Role Phone Shawn Barber MD Unavailable [phone] Shawn Barber MD Primary Care Provider Wednesday, Randee CIGARETTE AND FILTER CHIEF INSPECTOR Unavailable [phone] Becca Campos CUSTOMER SALES SPECIALIST Unavailable Hilary Frank RN Unavailable Kaylen Moore CIGARETTE AND FILTER CHIEF INSPECTOR Unavailable Encounter Details Date Type Department Care Team (Late st Contact Info) Description 11/25/2022 Abstract [facility] [place] [facility] [address] [facility] 110 [place] [address] Shawn Barber MD 112 [facility] 110 [place] [address] Social History Tobacco Use Types [...] [address] [place] [address] Shawn Barber MD [address] [place] [address] 03/15/2025 3:10 PM EST Office Visit [facility] [address] [place] [address] Colt Mendieta, DPChris 3006 [facility] 5 [place] [address] documented as of this encounter Visit Diagnoses Not on filedocumented in this encounter Care Teams Joist Setter Relationship Specialty Start Date End Date Shawn Barber MD [address] [place] [address] PCP - ACO Reach 09/24/22 Shawn Barber MD [address] [place] [address] PCP - General Internal Medicine 10/22/22WednesdayRandee LPN [address] [place] [address] Licensed Practical Nurse Family Medicine 12/29/22 06/09/24 Becca Campos, CUSTOMER SALES SPECIALIST [address] [place] [address] Ocean Freight Forwarder Family Medicine 12/29/22 08/24/24 Hilary Frank, RN [address] [place] [address] Licensed Practical Nurse Family Medicine 06/09/24 07/21/24 Kaylen Moore LPN 112 [facility] 110 [place] [address] 07/21/24 documented as of this encounter
--- OUTSIDE RECORDS SUMMARY | 2025-01-30 09:52 | XMS_ITS | Encounter Summary ---
Author Organization [facility] Address [address] [facility] [place] [address] Care Team Providers Care Tip Stretcher Name Role Phone Shawn Barber MD Unavailable [phone] Shawn Barber MD Primary Care Provider Wednesday, Randee RECEPTIONIST TELEPHONE OPERATOR Unavailable [phone] Becca Campos BEAUTY SALES CONSULTANT Unavailable Hilary Frank RN Unavailable [phone] Kaylen Moore RECEPTIONIST TELEPHONE OPERATOR Unavailable Encounter Details Date Type Department Care Team (Late st Contact Info) Description 11/30/[address] [place] [facility] 112 [facility] 110 [place] [address] Shawn Barber MD 112 [facility] 110 [place] [address] Social History Tobacco Use Types [...] Recorded Patient Health Questionnaire-2 Score 1 11/25/2022 [facility] of Occupat ional Health - Occupational Stress [...] Visit [facility] [place] [address] [facility] 110 [place] [address] Shawn Barber MD [address] [facility] 110 [place] [address] 03/15/2025 3:10 PM EST Office Visit [facility] [address] [place] [address] Colt Mendieta, DPM 3006 [facility] 5 [place] [address] documented as of this encounter Visit Diagnoses Not on filedocumented in this encounter Care Teams Tip Stretcher Relationship Specialty Start Date End Date Shawn Barber MD [address] [place] [address] PCP - ACO Reach 09/24/22 Shawn Barber MD [address] [place] [address] PCP - General Internal Medicine 10/22/22WednesdayRandee LPN [address] [place] [address] Licensed Practical Nurse Family Medicine 12/29/22 06/09/24 Becca Campos, NAY [address] [place] [address] Automatic Dispenser Mechanic Family Medicine 12/29/22 08/24/24 Hilary Frank, RN [address] [place] [address] Licensed Practical Nurse Family Medicine 06/09/24 07/21/24 Kaylen Moore LPN [address] [place] [address] 07/21/24 documented as of this encounter
--- OUTSIDE RECORDS SUMMARY | 2025-01-30 09:52 | XMS_ITS | Encounter Summary ---
Author Organization [facility] Address [address] [facility] [place] [address] Care Team Providers Care Bulk Plant Manager Name Role Phone Shawn Barber MD Unavailable [phone] Shawn Barber MD Primary Care Provider [phone] Wednesday, Randee INSTRUMENT TECHNICIAN APPRENTICE Unavailable [phone] Becca Campos CHIEF HOSPITAL ADMINISTRATOR Unavailable Hilary Frank RN Unavailable Kaylen Moore INSTRUMENT TECHNICIAN APPRENTICE Unavailable Encounter Details Date Type Department Care Team (Late st Contact Info) Description 12/10/2023 Abstract [facility] [place] [facility] 112 [facility] 110 [place] [address] Shawn Barber MD 112 [facility] 110 [place], [place] [id number] Social History Tobacco Use Types Packs/Day Years [...] attend chur ch or rastafarian services? Never 12/06/2023 Do you belong to [...] Recorded Patient Health Questionnaire-2 Score 1 11/25/2022 [facility] of Occupat ional Health - [...] any time in the past [address] [facility], were you homeless or living [...] [address] [place] [address] Shawn Barber MD [address] [place] [address] 03/15/2025 3:10 PM EST Office Visit [facility] [address] [place] [address] Colt Mendieta, DPM 3006 [facility] 5 [place] [address] documented as of this encounter Visit Diagnoses Not on filedocumented in this encounter Care Teams Bulk Plant Manager Relationship Specialty Start Date End Date Shawn Barber MD [address] [place] [address] PCP - ACO Reach 09/24/22 Shawn Barber MD [address] [place] [address] PCP - General Internal Medicine 10/22/22WednesdayRandee LPN [address] [place] [address] Licensed Practical Nurse Family Medicine 12/29/22 06/09/24 Becca Campos LSW [address] [place] [address] Clearance Diver Family Medicine 12/29/22 08/24/24 Hilary Frank, RN [address] [place] [address] Licensed Practical Nurse Family Medicine 06/09/24 07/21/24 Kaylen Moore LPN [address] [place] [address] 07/21/24 documented as of this encounter
--- OUTSIDE RECORDS SUMMARY | 2025-01-30 09:52 | XMS_ITS | Encounter Summary ---
Author Organization [facility] Address [address] [facility] [place] [address] Care Team Providers Care Fluid Pump Operator Name Role Phone Shawn Barber MD Unavailable [phone] Shawn Barber MD Primary Care Provider [phone] Wednesday, Randee SEGALN Unavailable [phone] Becca Campos CATTLE DEALER Unavailable Hilary Frank RN Unavailable Kaylen Moore SCOUT EXECUTIVE Unavailable Encounter Details Date Type Department Care Team (Late st Contact Info) Description 12/02/2023 Orders Only [facility] [place] [facility] [address] [place] [address] Ginger Jose LPN [address] [place] [address] Age-related osteoporosis without current pathological fracture Social [...] attend chur ch or confucianist services? Never 12/06/2023 Do you belong to [...] Recorded Patient Health Questionnaire-2 Score 1 11/25/2022 [facility] of Occupat ional Health [...] any time in the past 12 m [facility], were you homeless or living [...] 2:00 PM EDT Office Visit [facility] [place] [facility] [address] [place] [address] Shawn Barber MD [address] [place] [address] 03/15/2025 3:10 PM EST Office Visit [facility] [address] [place] [address] Colt Mendieta, DPM 3006 [facility] 5 [place] [address] documented as of this encounter Visit Diagnoses Diagnosis Age-related osteoporosis without current pathological fracture documented in this encounter Care Teams Fluid Pump Operator Relationship Specialty Start Date End Date Shawn Barber MD [address] [place] [address] PCP - ACO Reach 09/24/22 Shawn Barber MD [address] [place] [address] PCP - General Internal Medicine 10/22/22WednesdayRandee LPN [address] [place] [address] Licensed Practical Nurse Family Medicine 12/29/22 06/09/24 Becca Campos, NAY [address] [place] [address] Foot And Ankle Surgeon Family Medicine 12/29/22 08/24/24 Hilary Frank, RN [address] [place] [address] Licensed Practical Nurse Family Medicine 06/09/24 07/21/24 Kaylen Moore LPN [address] [place] [address] 07/21/24 documented as of this encounter
--- OUTSIDE RECORDS SUMMARY | 2025-01-30 09:52 | XMS_ITS | Encounter Summary ---
Author Organization [facility] Address [address] [facility] [place] [address] Care Team Providers Care Motel Manager Name Role Phone Shawn Barber MD Unavailable [phone] Shawn Barber MD Primary Care Provider [phone] Wednesday, Randee DIVISION ORDER ANALYST Unavailable [phone] Becca Campos APPLICATION SUPPORT ENGINEER Unavailable Hilary Frank RN Unavailable Kaylen Moore DIVISION ORDER ANALYST Unavailable Encounter Details Date Type Department Care Team (Late st Contact Info) Description 01/04/2024 Abstract [facility] [place] [facility] [address] [facility] 110 [place] [address] Shawn Barber MD 112 [facility] 110 [place] [address] Social History Tobacco Use Types [...] Questionnaire-2 Score 1 11/25/2022 [facility] of Occupat ional Health - Occupational [...] time in the past 12 m [facility], were you homeless or living [...] [address] [place] [address] Shawn Barber MD [address] [place] [address] 03/15/2025 3:10 PM EST Office Visit [facility] [address] [place] [address] Colt Mendieta, DPM 3006 [facility] 5 [place] [address] documented as of this encounter Visit Diagnoses Not on filedocumented in this encounter Care Teams Motel Manager Relationship Specialty Start Date End Date Shawn Barber MD [address] [place] [address] PCP - ACO Reach 09/24/22 Shawn Barber MD [address] [place] [address] PCP - General Internal Medicine 10/22/22WednesdayRandee LPN [address] [place] [address] Licensed Practical Nurse Family Medicine 12/29/22 06/09/24 Becca Campos LSW [address] [place] [address] Seating Upholsterer Family Medicine 12/29/22 08/24/24 Hilary Frank, RN [address] [place] [address] Licensed Practical Nurse Family Medicine 06/09/24 07/21/24 Kaylen Moore LPN [address] [place] [address] 07/21/24 documented as of this encounter
--- OUTSIDE RECORDS SUMMARY | 2025-01-30 09:52 | XMS_ITS | Encounter Summary ---
Author Organization [facility] Address [address] [facility] [place] [place] [address] Care Team Providers Care Room Service Waiter Name Role Phone Shawn Barber MD Unavailable [phone] Shawn Barber MD Primary Care Provider [phone] Wednesday, Randee HUMANITIES DIVISION CHAIR Unavailable [phone] Becca Campos MANUFACTURING BUSINESS ANALYST Unavailable Hilary Frank RN Unavailable [phone] Kaylen Moore HUMANITIES DIVISION CHAIR Unavailable Encounter Details Date Type Department Care Team (Late st Contact Info) Description 12/14/2023 Abstract [facility] [place] [facility] [address] [facility] 110 [place] [address] Shawn Barber MD [address] [facility] 110 [place], [place] [id number] Social History Tobacco Use Types Packs/Day Years [...] Health Questionnaire-2 Score 1 11/25/2022 [facility] of Occupat ional [...] any time in the past 12 m [facility], were you homeless or living in [...] [address] [place] [address] Shawn Barber MD [address] [place] [address] 03/15/2025 3:10 PM EST Office Visit [facility] [address] [place] [address] Colt Mendieta, DPM 3006 [facility] 5 [place] [address] documented as of this encounter Visit Diagnoses Not on filedocumented in this encounter Care Teams Room Service Waiter Relationship Specialty Start Date End Date Shawn Barber MD [address] [place] [address] PCP - ACO Reach 09/24/22 Shawn Barber MD [address] [place] [address] PCP - General Internal Medicine 10/22/22WednesdayRandee LPN [address] [place] [address] Licensed Practical Nurse Family Medicine 12/29/22 06/09/24 Becca Campos LSW [address] [place] [address] Dry Heat Room Attendant Family Medicine 12/29/22 08/24/24 Hilary Frank, RN [address] [place] [address] Licensed Practical Nurse Family Medicine 06/09/24 07/21/24 Kaylen Moore LPN [address] [place] [address] 07/21/24 documented as of this encounter
--- OUTSIDE RECORDS SUMMARY | 2025-01-30 09:52 | XMS_ITS | Encounter Summary ---
Author Organization [facility] Address [address] [facility] [place] [address] Care Team Providers Care Upper Stitcher Name Role Phone Shawn Barber MD Unavailable [phone] Shawn Barber MD Primary Care Provider Wednesday, Randee AIRLINE SECURITY REPRESENTATIVE Unavailable [phone] Becca Campos CERTIFIED MASSAGE THERAPIST Unavailable Hilary Frank RN Unavailable Kaylen Moore AIRLINE SECURITY REPRESENTATIVE Unavailable Encounter Details Date Type Department Care Team (Late st Contact Info) Description 01/13/2024 Abstract [facility] [place] [facility] [address] [facility] 110 [place] [address] Shawn Barber MD 112 [facility] 110 [place], [place] [address] Social History Tobacco Use Types Packs/Day Years [...] attend chur ch or zoroastrian services? Never 12/06/2023 Do you belong to [...] Recorded Patient Health Questionnaire-2 Score 1 11/25/2022 [facility] of Occupat ional Health - Occupational [...] any time in the past 12 m [facility], were you homeless or [...] [address] [place] [address] Shawn Barber MD [address] [place] [address] 03/15/2025 3:10 PM EST Office Visit [facility] [address] [place] [address] Colt Mendieta, DPM 3006 [facility] 5 [place] [address] documented as of this encounter Visit Diagnoses Not on filedocumented in this encounter Care Teams Upper Stitcher Relationship Specialty Start Date End Date Shawn Barber MD [address] [place] [address] PCP - ACO Reach 09/24/22 Shawn Barber MD [address] [place] [address] PCP - General Internal Medicine 10/22/22WednesdayRandee LPN [address] [place] [address] Licensed Practical Nurse Family Medicine 12/29/22 06/09/24 Becca Campos LSW [address] [place] [address] Power Technician Family Medicine 12/29/22 08/24/24 Hilary Frank, RN [address] [place] [address] Licensed Practical Nurse Family Medicine 06/09/24 07/21/24 Kaylen Moore LPN [address] [place] [address] 07/21/24 documented as of this encounter
--- OUTSIDE RECORDS SUMMARY | 2025-01-30 09:52 | XMS_ITS | Encounter Summary ---
Author Organization [facility] Address [address] [facility] [place] [address] Care Team Providers Care Operational Assistant Name Role Phone Shawn Barber MD Unavailable [phone] Shawn Barber MD Primary Care Provider Wednesday, Randee INDIVIDUAL PENSION CONSULTANT Unavailable [phone] Becca Campos ENTERPRISE ANALYST Unavailable Hilary Frank RN Unavailable Kaylen Moore INDIVIDUAL PENSION CONSULTANT Unavailable Encounter Details Date Type Department Care Team (Late st Contact Info) Description 11/13/2022 Abstract [facility] [place] [facility] [address] [facility] 110 [place] [address] Shawn Barber MD 112 [facility] 110 [place], [place] [address] Social History Tobacco Use Types Packs/Day Years [...] [address] [place] [address] Shawn Barber MD [address] [place] [address] 03/15/2025 3:10 PM EST Office Visit [facility] [address] [place] [address] Colt Mendieta, DPM 3006 [facility] 5 [place] [address] documented as of this encounter Visit Diagnoses Not on filedocumented in this encounter Care Teams Operational Assistant Relationship Specialty Start Date End Date Shawn Barber MD [address] [place] [address] PCP - ACO Reach 09/24/22 Shawn Barber MD [address] [place] [address] PCP - General Internal Medicine 10/22/22WednesdayRandee LPN [address] [place] [address] Licensed Practical Nurse Family Medicine 12/29/22 06/09/24 Becca Campos, ENTERPRISE ANALYST [address] [place] [address] Development Associate Family Medicine 12/29/22 08/24/24 Hilary Frank, RN [address] [place] [address] Licensed Practical Nurse Family Medicine 06/09/24 07/21/24 Kaylen Moore LPN [address] [place] [address] 07/21/24 documented as of this encounter
--- OUTSIDE RECORDS SUMMARY | 2025-01-30 09:52 | XMS_ITS | Encounter Summary ---
Author Organization [facility] Address [address] [facility] [place] [address] Care Team Providers Care Buffing Wheel Operator Name Role Phone Shawn Barber MD Unavailable [phone] hSawn Barber MD Primary Care Provider [phone] Wednesday, Randee SECURITY SYSTEMS ENGINEER Unavailable [phone] Becca Campos MEDICAL TRANSCRIPTIONIST Unavailable Hilary Frank RN Unavailable [phone] Kaylen Moore SECURITY SYSTEMS ENGINEER Unavailable Encounter Details Date Type Department Care Team (Late st Contact Info) Description 11/19/2022 Abstract [facility] [place] [facility] [address] [facility] 110 [place] [address] Shawn Barber MD 112 [facility] 110 [place], [place] [address] Social History Tobacco Use Types Packs/Day Years [...] [address] [place] [address] Shawn Barber MD [address] [place] [address] 03/15/2025 3:10 PM EST Office Visit [facility] [address] [place] [address] Colt Mendieta, DPM 3006 [facility] 5 [place] [address] documented as of this encounter Visit Diagnoses Not on filedocumented in this encounter Care Teams Buffing Wheel Operator Relationship Specialty Start Date End Date Shawn Barber MD [address] [place] [address] PCP - ACO Reach 09/24/22 Shawn Barber MD [address] [place] [address] PCP - General Internal Medicine 10/22/22WednesdayRandee LPN [address] [place] [address] Licensed Practical Nurse Family Medicine 12/29/22 06/09/24 Becca Campos, MEDICAL TRANSCRIPTIONIST [address] [place] [address] Cement Contractor Family Medicine 12/29/22 08/24/24 Hilary Frank, RN [address] [place] [address] Licensed Practical Nurse Family Medicine 06/09/24 07/21/24 Kaylen Moore LPN [address] [place] [address] 07/21/24 documented as of this encounter
--- OUTSIDE RECORDS SUMMARY | 2025-01-30 09:52 | XMS_ITS | Encounter Summary ---
Author Organization [facility] Address [address] [facility] [place] [address] Care Team Providers Care Diesel Engine Operator Name Role Phone Shawn Barber MD Unavailable [phone] Shawn Barber MD Primary Care Provider Wednesday, Randee PSYCHOLOGICAL TESTS SALES AGENT Unavailable [phone] Becca Campos SUPERVISOR ELECTRIC Unavailable [phone] Hilary Frank RN Unavailable [phone] Kaylen Moore PSYCHOLOGICAL TESTS SALES AGENT Unavailable Encounter Details Date Type Department Care Team (Late st Contact Info) Description 01/12/2024 Abstract [facility] [place] [facility] [address] [facility] 110 [place] [address] Shawn Barber MD 112 [facility] 110 [place], [place] [address] Social History Tobacco Use Types Packs/Day Years [...] attend chur ch or buddhist services? Never 12/06/2023 Do you belong to [...] Patient Health Questionnaire-2 Score 1 11/25/2022 [facility] of Occupat ional Health - [...] in the past 12 m [facility], were you homeless or living in a [...] [address] [place] [address] Shawn Barber MD [address] [place] [address] 03/15/2025 3:10 PM EST Office Visit [facility] [address] [place] [address] Colt Mendieta, DPM 3006 [facility] 5 [place] [address] documented as of this encounter Visit Diagnoses Not on filedocumented in this encounter Care Teams Diesel Engine Operator Relationship Specialty Start Date End Date Shawn Barber MD [address] [place] [address] PCP - ACO Reach 09/24/22 Shawn Barber MD [address] [place] [address] PCP - General Internal Medicine 10/22/22WednesdayRandee LPN [address] [place] [address] Licensed Practical Nurse Family Medicine 12/29/22 06/09/24 Becca Campos LSW [address] [place] [address] Purchase Price Analyst Family Medicine 12/29/22 08/24/24 Hilary Frank, RN [address] [place] [address] Licensed Practical Nurse Family Medicine 06/09/24 07/21/24 Kaylen Moore LPN [address] [place] [address] 07/21/24 documented as of this encounter
--- OUTSIDE RECORDS SUMMARY | 2025-01-30 09:52 | XMS_ITS | Encounter Summary ---
Author Organization [facility] Address [address] [facility] [place] [address] Care Team Providers Care Framework Developer Name Role Phone Shawn Barber MD Unavailable [phone] Shawn Barber MD Primary Care Provider Wednesday, Randee STORAGE GARAGE ATTENDANT Unavailable [phone] Becca Campos PACKING SHED SUPERVISOR Unavailable Hilary Frank RN Unavailable [phone] Kaylen Moore STORAGE GARAGE ATTENDANT Unavailable Encounter Details Date Type Department Care Team (Late st Contact Info) Description 11/27/2022 Abstract [facility] [place] [facility] [address] [facility] 110 [place] [address] Shawn Barber MD 112 [facility] 110 [place], [place] [address] Social History Tobacco Use Types Packs/Day Years [...] [address] [place] [address] Shawn Barber MD [address] [place] [address] 03/15/2025 3:10 PM EST Office Visit [facility] [address] [place] [address] Colt Mendieta, DPM 3006 [facility] 5 [place] [address] documented as of this encounter Visit Diagnoses Not on filedocumented in this encounter Care Teams Framework Developer Relationship Specialty Start Date End Date Shawn Barber MD [address] [place] [address] PCP - ACO Reach 09/24/22 Sahwn Barber MD [address] [place] [address] PCP - General Internal Medicine 10/22/22WednesdayRandee LPN [address] [place] [address] Licensed Practical Nurse Family Medicine 12/29/22 06/09/24 Becca Campos, PACKING SHED SUPERVISOR [address] [place] [address] Numberer And Wirer Family Medicine 12/29/22 08/24/24 Hilary Frank, RN [address] [place] [address] Licensed Practical Nurse Family Medicine 06/09/24 07/21/24 Kaylen Moore LPN [address] [place] [address] 07/21/24 documented as of this encounter
--- OUTSIDE RECORDS SUMMARY | 2025-01-30 09:52 | XMS_ITS | Encounter Summary ---
Author Organization [facility] Address [address] [facility] [place] [address] Care Team Providers Care City Carrier Assistant Name Role Phone Shawn Barber MD Unavailable [phone] Shawn Barber MD Primary Care Provider [phone] Wednesday, Randee HYPOID GEAR GENERATOR Unavailable [phone] Becca Campos PRIMARY GRADE TEACHER Unavailable Hilary Frank RN Unavailable [phone] Kaylen Moore HYPOID GEAR GENERATOR Unavailable Encounter Details Date Type Department Care Team (Late st Contact Info) Description 12/29/2023 Abstract [facility] [place] [facility] [address] [facility] 110 [place] [address] Shawn Barber MD 112 [facility] 110 [place] [address] Social History Tobacco Use Types [...] attend chur ch or episcopalian services? Never 12/06/2023 Do you belong to [...] 1 11/25/2022 [facility] of Occupat ional Health - [...] any time in the past 12 m [facility], were you homeless or living in a residential (including now)? No 12/06/2023 Comments Unknown Sex [...] [address] [place] [address] Shawn Barber MD [address] [place] [address] 03/15/2025 3:10 PM EST Office Visit [facility] [address] [place] [address] Colt Mendieta, DPM 3006 [facility] 5 [place] [address] documented as of this encounter Visit Diagnoses Not on filedocumented in this encounter Care Teams City Carrier Assistant Relationship Specialty Start Date End Date Shawn Barber MD [address] [place] [address] PCP - ACO Reach 09/24/22 Shawn Barber MD [address] [place] [address] PCP - General Internal Medicine 10/22/22WednesdayRandee LPN [address] [place] [address] Licensed Practical Nurse Family Medicine 12/29/22 06/09/24 Becca Campos LSW [address] [place] [address] Resistance Welder Family Medicine 12/29/22 08/24/24 Hilary Frank, RN [address] [place] [address] Licensed Practical Nurse Family Medicine 06/09/24 07/21/24 Kaylen Moore LPN [address] [place] [address] 07/21/24 documented as of this encounter
--- OUTSIDE RECORDS SUMMARY | 2025-01-30 09:52 | XMS_ITS | Encounter Summary ---
Author Organization [facility] Address [address] [facility] [place] [address] Care Team Providers Care Cook Helper Juice Name Role Phone Shawn Barber MD Unavailable [phone] Shawn Barber MD Primary Care Provider Wednesday, Randee PATTERN DATA OPERATOR Unavailable [phone] Becca Campos NETWORK CABLE INSTALLER Unavailable Hilary Frank RN Unavailable Kaylen Moore PATTERN DATA OPERATOR Unavailable Encounter Details Date Type Department Care Team (Late st Contact Info) Description 12/02/2022 Abstract [facility] [place] [facility] [address] [facility] 110 [place] [address] Shawn Barber MD 112 [facility] 110 [place], [place] [id number] Social History Tobacco Use Types Packs/Day Years [...] [address] [place] [address] Shawn Barber MD [address] [place] [address] 03/15/2025 3:10 PM EST Office Visit [facility] [address] [place] [address] Colt Mendieta, DPM 3006 [facility] 5 [place] [address] documented as of this encounter Visit Diagnoses Not on filedocumented in this encounter Care Teams Cook Helper Juice Relationship Specialty Start Date End Date Shawn Barber MD [address] [place] [address] PCP - ACO Reach 09/24/22 Shawn Barber MD [address] [place] [address] PCP - General Internal Medicine 10/22/22WednesdayRandee LPN [address] [place] [address] Licensed Practical Nurse Family Medicine 12/29/22 06/09/24 Becca Campos, NETWORK CABLE INSTALLER [address] [place] [address] Stock Parts Fabricator Family Medicine 12/29/22 08/24/24 Hilary Frank, RN [address] [place] [address] Licensed Practical Nurse Family Medicine 06/09/24 07/21/24 Kaylen Moore LPN [address] [place] [address] 07/21/24 documented as of this encounter
--- OUTSIDE RECORDS SUMMARY | 2025-01-30 09:52 | XMS_ITS | Encounter Summary ---
Author Organization [facility] Address [address] [facility] [place] [address] Care Team Providers Care Quarrying Specialist Name Role Phone Shawn Barber MD Unavailable [phone] Shawn Barber MD Primary Care Provider [phone] Wednesday, Randee MACHINE PLATE STACKER Unavailable [phone] Becca Campos CELL REPAIRER Unavailable [phone] Hilary Frank RN Unavailable Kaylen Moore MACHINE PLATE STACKER Unavailable Encounter Details Date Type Department Care Team (Late st Contact Info) Description 11/27/2022 Abstract [facility] [place] [facility] [address] [facility] 110 [place] [address] Shawn Barber MD 112 [facility] 110 [place], [place] [address] Social History Tobacco Use Types Packs/Day Years [...] [address] [place] [address] Shawn Barber MD [address] [place] [address] 03/15/2025 3:10 PM EST Office Visit [facility] [address] [place] [address] Colt Mendieta, DPM 3006 [facility] 5 [place] [address] documented as of this encounter Visit Diagnoses Not on filedocumented in this encounter Care Teams Quarrying Specialist Relationship Specialty Start Date End Date Shawn Barber MD [address] [place] [address] PCP - ACO Reach 09/24/22 Shawn Barber MD [address] [place] [address] PCP - General Internal Medicine 10/22/22WednesdayRandee LPN [address] [place] [address] Licensed Practical Nurse Family Medicine 12/29/22 06/09/24 Becca Campos, CELL REPAIRER [address] [place] [address] Credit Manager Family Medicine 12/29/22 08/24/24 Hilary Frank, RN [address] [place] [address] Licensed Practical Nurse Family Medicine 06/09/24 07/21/24 Kaylen Moore LPN [address] [place] [address] 07/21/24 documented as of this encounter
--- OUTSIDE RECORDS SUMMARY | 2025-01-30 09:52 | XMS_ITS | Encounter Summary ---
Author Organization [facility] Address [address] [facility] [place] [address] Care Team Providers Care Hand Mixer Name Role Phone Shawn Barber MD Unavailable [phone] Shawn Barber MD Primary Care Provider Wednesday, Randee BOOT TRIMMER Unavailable [phone] Becca Campos WELLNESS MANAGER Unavailable Hilary Frank RN Unavailable [phone] Kaylen Moore BOOT TRIMMER Unavailable Encounter Details Date Type Department Care Team (Late st Contact Info) Description 12/09/2023 Orders Only [facility] [place] [facility] [address] [place] [address] Unallocated, Noms MD Feliberto [address] [place], [place] [address] Social History Tobacco Use Types Packs/Day Years [...] attend chur ch or buddhism services? Never 12/06/2023 Do you belong to [...] Recorded Patient Health Questionnaire-2 Score 1 11/25/2022 [facility] [...] any time in the past 12 m [facility], were you homeless or [...] Huerta Medince [address] [place] [address] Shawn Barber MD [address] [place] [address] 03/15/2025 3:10 PM EST Office Visit [facility] [address] [place] [address] Colt Mendieta, DPChris [address]006 [facility] [address] 5 [place] [address] documented as of this encounter Procedures Procedure Name Priority Date/Time Associated Diagnosis Comments SCANNED LABS Routine 12/09/2023 2:35 PM EDT documented in this encounter Results * SCANNED LABS (12/09/2023 2:35 PM EDT) us Noms Provider Unallocated LAB CHG PERFORMABLE S Final Result documented in this encounter Visit Diagnoses Not on filedocumented in this encounter Care Teams Hand Mixer Relationship Specialty Start Date End Date Shawn Barber MD [address] [place] [address] PCP - ACO Reach 09/24/22 Shawn Barber MD [address] [place] [address] PCP - General Internal Medicine 10/22/22Wednesday, NIKHIL Jeff [address] [place] [address] Licensed Practical Nurse Family Medicine 12/29/22 06/09/24 Becca Campos, NAY [address] [place] [address] Fish Trapper Family Medicine 12/29/22 08/24/24 Hilary Frank, RN [address] [place] [address] Licensed Practical Nurse Family Medicine 06/09/24 07/21/24 Kaylen Moore LPN [address] [address] 07/21/24 documented as of this encounter
--- OUTSIDE RECORDS SUMMARY | 2025-01-30 09:52 | XMS_ITS | Encounter Summary ---
Author Organization [facility] Address [address] [facility] [place] [address] Care Team Providers Care Career Based Intervention Coordinator Name Role Phone Shawn Barber MD Unavailable [phone] Shawn Barber MD Primary Care Provider [phone] Wednesday, Randee RADIOLOGIST CHIEF OF BREAST IMAGING Unavailable [phone] Becca Campos CHARRER Unavailable Hilary Frank RN Unavailable Kaylen Moore RADIOLOGIST CHIEF OF BREAST IMAGING Unavailable Encounter Details Date Type Department Care Team (Late st Contact Info) Description 11/19/2022 Abstract [facility] [place] [facility] [address] [facility] 110 [place] [address] Shawn Barber MD 112 [facility] 110 [place], [place] [address] Social History Tobacco Use Types Packs/Day Years [...] [address] [place] [address] Shawn Barber MD [address] [place] [address] 03/15/2025 3:10 PM EST Office Visit [facility] [address] [place] [address] Colt Mendieta, DPM 3006 [facility] 5 [place] [address] documented as of this encounter Visit Diagnoses Not on filedocumented in this encounter Care Teams Career Based Intervention Coordinator Relationship Specialty Start Date End Date Shawn Barber MD [address] [place] [address] PCP - ACO Reach 09/24/22 Shawn Barber MD [address] [place] [address] PCP - General Internal Medicine 10/22/22WednesdayRandee LPN [address] [place] [address] Licensed Practical Nurse Family Medicine 12/29/22 06/09/24 Becca Campos, CHARRER [address] [place] [address] Rubber Calender Helper Family Medicine 12/29/22 08/24/24 Hilary Frank, RN [address] [place] [address] Licensed Practical Nurse Family Medicine 06/09/24 07/21/24 Kaylen Moore LPN [address] [place] [address] 07/21/24 documented as of this encounter
--- OUTSIDE RECORDS SUMMARY | 2025-01-30 09:52 | XMS_ITS | Encounter Summary ---
Author Organization [facility] Address [address] [facility] [place] [address] Care Team Providers Care Labor Relations Specialist Name Role Phone Shawn Barber MD Unavailable [phone] Shawn Barber MD Primary Care Provider Wednesday, Randee HAND HEEL SEAT FITTER Unavailable [phone] Becca Campos AEROSPACE PRODUCTS SALES ENGINEER Unavailable Hilary Frank RN Unavailable Kaylen Moore HAND HEEL SEAT FITTER Unavailable Encounter Details Date Type Department Care Team (Late st Contact Info) Description 11/13/2022 Abstract [facility] [place] [facility] [address] [facility] 110 [place] [address] Shawn Barber MD 112 [facility] 110 [place], [place] [address] Social History Tobacco Use Types Packs/Day Years [...] [address] [place] [address] Shawn Barber MD [address] [place] [address] 03/15/2025 3:10 PM EST Office Visit [facility] [address] [place] [address] Colt Mendieta, DPM 3006 [facility] 5 [place] [address] documented as of this encounter Visit Diagnoses Not on filedocumented in this encounter Care Teams Labor Relations Specialist Relationship Specialty Start Date End Date Shawn Barber MD [address] [place] [address] PCP - ACO Reach 09/24/22 Shawn Barber MD [address] [place] [address] PCP - General Internal Medicine 10/22/22WednesdayRandee LPN [address] [place] [address] Licensed Practical Nurse Family Medicine 12/29/22 06/09/24 Becca Campos, AEROSPACE [employer]ODUCTS SALES ENGINEER [address] [place] [address] Learning Support Resource Room Teacher Family Medicine 12/29/22 08/24/24 Hilary Frank, RN [address] [place] [address] Licensed Practical Nurse Family Medicine 06/09/24 07/21/24 Kaylen Moore LPN [address] [place] [address] 07/21/24 documented as of this encounter
--- OUTSIDE RECORDS SUMMARY | 2025-01-30 09:52 | XMS_ITS | Encounter Summary ---
Author Organization [facility] Address [address] [facility] [place] [address] Care Team Providers Care Color Laboratory Technician Name Role Phone Shawn Barber MD Unavailable [phone] Shawn Barber MD Primary Care Provider Wednesday, Randee ONCOLOGY PHARMACIST Unavailable [phone] Becca Campos PICKLING SOLUTION MAKER Unavailable Hilary Frank RN Unavailable Kaylen Moore ONCOLOGY PHARMACIST Unavailable Encounter Details Date Type Department Care Team (Late st Contact Info) Description 11/23/2022 Abstract [facility] [place] [facility] [address] [facility] 110 [place] [address] Shawn Barber MD 112 [facility] 110 [place] [address] Social History Tobacco Use Types [...] [address] [place] [address] Shawn Barber MD [address] [place] [address] 03/15/2025 3:10 PM EST Office Visit [facility] [address] [place] [address] Colt Mendieta, DPChris 3006 [facility] 5 [place] [address] documented as of this encounter Visit Diagnoses Not on filedocumented in this encounter Care Teams Color Laboratory Technician Relationship Specialty Start Date End Date Shawn Barber MD [address] [place] [address] PCP - ACO Reach 09/24/22 Shawn Barber MD [address] [place] [address] PCP - General Internal Medicine 10/22/22WednesdayRandee LPN [address] [place] [address] Licensed Practical Nurse Family Medicine 12/29/22 06/09/24 Becca Campos, PICKLING SOLUTION MAKER [address] [place] [address] Intake Specialist Family Medicine 12/29/22 08/24/24 Hilary Frank, RN [address] [place] [address] Licensed Practical Nurse Family Medicine 06/09/24 07/21/24 Kaylen Moore LPN 112 [facility] 110 [place] [address] 07/21/24 documented as of this encounter
--- OUTSIDE RECORDS SUMMARY | 2025-01-30 09:52 | XMS_ITS | Encounter Summary ---
Author Organization [facility] Address [address] [facility] [place] [address] Care Team Providers Care Aircraft Stress Analyst Name Role Phone Shawn Barber MD Unavailable [phone] Shawn Barber MD Primary Care Provider [phone] Wednesday, Randee ROLL RECLAIMER Unavailable [phone] Becca Campos SLIDE DEVELOPER Unavailable Hilary Frank RN Unavailable [phone] Kaylen Moore ROLL RECLAIMER Unavailable Encounter Details Date Type Department Care Team (Late st Contact Info) Description 12/06/2023 Abstract [facility] [place] [facility] 112 [facility] 110 [place] [address] Shawn Barber MD 112 [facility] 110 [place], [place] [address] Social History Tobacco Use Types Packs/Day Years [...] Recorded Patient Health Questionnaire-2 Score 1 11/25/2022 [facility] of Occupat ional Health - Occupational [...] in the past 12 m [facility], were you homeless or living in a retirement (including now)? No 12/06/2023 Comments Unknown Sex and Gender Information Value Date Recorded Sex Assigned at Not on file Legal Sex Female 6:46 PM EDT Gender Identity Not on file Sexual Orientation Not on file documented as of this encounter Functional Status * Audit-C Score Answer Date of Assessment Author 0 12/06/2023 2:15 PM EDT Laureano, Adolfo murphy LPN * Question Answer Date [...] one occasion? Never 12/06/2023 2:15 PM EDT LaureanoRandee LP N documented as of this encounter Plan of Treatment Upcoming Encounters Date Type Department Care Team (Late st Contact Info) Description 02/05/2025 2:00 PM EDT Office Visit [facility] [place] [facility] [address] [place] [address] Shawn Barber MD [address] [place] [address] 03/15/2025 3:10 PM EST Office Visit [facility] [address] [place] [address] Colt Mendieta, DPChris 3006 [facility] 5 [place] [address] documented as of this encounter Visit Diagnoses Not on filedocumented in this encounter Care Teams Aircraft Stress Analyst Relationship Specialty Start Date End Date Shawn Barber MD [address] [place] [address] PCP - ACO Reach 09/24/22 Shawn Barber MD [address] [place] [address] PCP - General Internal Medicine 10/22/22 Randee Tinsley LPN [address] [place] [address] Licensed Practical Nurse Family Medicine 12/29/22 06/09/24 Becca Campos, SLIDE DEVELOPER [address] [place] [address] Plateman Family Medicine 12/29/22 08/24/24 Hilary Frank, RN [address] [place] [address] Licensed Practical Nurse Family Medicine 06/09/24 07/21/24 Kaylen Moore LPN 112 [facility] 110 [place] [address] 07/21/24 documented as of this encounter
--- OUTSIDE RECORDS SUMMARY | 2025-01-30 09:52 | XMS_ITS | Encounter Summary ---
Author Organization [facility] Address [address] [facility] [place] [address] Care Team Providers Care Logging Tractor Operator Name Role Phone Shawn Barber MD Unavailable [phone] Shawn Barber MD Primary Care Provider [phone] Wednesday, Randee SAWSMITH Unavailable [phone] Becca Campos ORE CHARGER Unavailable Hilary Frank RN Unavailable [phone] Kaylen Moore SAWSMITH Unavailable Encounter Details Date Type Department Care Team (Late st Contact Info) Description 11/13/2022 Abstract [facility] [place] [facility] [address] [facility] 110 [place] [address] Shawn Barber MD 112 [facility] 110 [place], [place] [address] Social History Tobacco Use Types Packs/Day Years [...] [address] [place] [address] Shawn Barber MD [address] [place] [address] 03/15/2025 3:10 PM EST Office Visit [facility] [address] [place] [address] Colt Mendieta, DPM 3006 [facility] 5 [place] [address] documented as of this encounter Visit Diagnoses Not on filedocumented in this encounter Care Teams Logging Tractor Operator Relationship Specialty Start Date End Date Shawn Barber MD [address] [place] [address] PCP - ACO Reach 09/24/22 Shawn Barber MD [address] [place] [address] PCP - General Internal Medicine 10/22/22WednesdayRandee LPN [address] [place] [address] Licensed Practical Nurse Family Medicine 12/29/22 06/09/24 Becca Campos, ORE CHARGER [address] [place] [address] Board Hammer Operator Family Medicine 12/29/22 08/24/24 Hilary Frank, RN [address] [place] [address] Licensed Practical Nurse Family Medicine 06/09/24 07/21/24 Kaylen Moore LPN [address] [place] [address] 07/21/24 documented as of this encounter
--- OUTSIDE RECORDS SUMMARY | 2025-01-30 09:52 | XMS_ITS | Encounter Summary ---
Author Organization [facility] Address [address] [facility] [place] [address] Care Team Providers Care Railway Switch Operator Name Role Phone Shawn Barber MD Unavailable [phone] Shawn Barber MD Primary Care Provider [phone] Kaylen Moore LPN Unavailable Encounter Details Date Type Department Care Team (Late st Contact Info) Description 01/30/2025 Abstract [facility] [place] [facility] [address] [facility] 110 [place] [address] Shawn Barber MD 112 [address] [facility] 110 [place], [place] [address] Social History Tobacco Use Types Packs/Day Years [...] 12/06/2023 How often do you attend chur or taoism services? Never 12/06/2023 Do you [...] Date Recorded Patient Health Questionnaire-2 Score 0 2024 [facility] of Occupat ional Health - Occupational Stress [...] any time in the past 12 m [facility], were you homeless or living in [...] Description 02/05/2025 2:00 PM EDT Office Visit [facility] [place] [facility] [address] [facility] 110 [place] [address] Shawn Barber MD [address] [place] [address] 03/15/2025 3:10 PM EST Office Visit [facility] [address] [facility] [address] [place] [address] Colt Mendieta, DPM 3006 [facility] 5 [place] [address] documented as of this encounter Visit Diagnoses Not on filedocumented in this encounter Care Teams Railway Switch Operator Relationship Specialty Start Date End Date Shawn Barber MD [address] [facility] 110 [place] [address] PCP - ACO Reach 09/24/22 Shawn Barber MD [address] [facility] 110 [place] [address] PCP - General Internal Medicine 10/22/22 Kaylen Moore LPN [address] [facility] 110 [place] [address] 07/21/24 documented as of this encounter
--- OUTSIDE RECORDS SUMMARY | 2025-01-30 09:52 | XMS_ITS | Encounter Summary ---
Author Organization [facility] Address [address] [facility] [place] [address] Care Team Providers Care Referral Coordinator Name Role Phone Shawn Barber MD Unavailable [phone] Shawn Barber MD Primary Care Provider Wednesday, Randee SALES PERSON Unavailable [phone] Becca Campos VOCATIONAL REHABILITATION TEACHER Unavailable Hilary Frank RN Unavailable [phone] Kaylen Moore SALES PERSON Unavailable Encounter Details Date Type Department Care Team (Late st Contact Info) Description 01/12/2024 Abstract [facility] [place] [facility] [address] [facility] 110 [place] [address] Shawn Barber MD 112 [facility] 110 [place], [place] [address] Social History Tobacco Use Types Packs/Day Years [...] Recorded Patient Health Questionnaire-2 Score 1 11/25/2022 [facility] of Occupat ional Health - [...] any time in the past 12 m [facility], were you homeless or living [...] [address] [place] [address] Shawn Barber MD [address] [place] [address] 03/15/2025 3:10 PM EST Office Visit [facility] [address] [place] [address] Colt Mendieta, DPM [address] [facility] 5 [place] [address] documented as of this encounter Visit Diagnoses Not on filedocumented in this encounter Care Teams Referral Coordinator Relationship Specialty Start Date End Date Shawn Barber MD [address] [place] [address] PCP - ACO Reach 09/24/22 Shawn Barber MD [address] [place] [address] PCP - General Internal Medicine 10/22/22WednesdayRandee LPN [address] [place] [address] Licensed Practical Nurse Family Medicine 12/29/22 06/09/24 Becca Campos LSW [address] [place] [address] Regulatory Assistant Family Medicine 12/29/22 08/24/24 Hilary Frank, RN [address] [place] [address] Licensed Practical Nurse Family Medicine 06/09/24 07/21/24 Kaylen Moore LPN [address] [place] [address] 07/21/24 documented as of this encounter
--- OUTSIDE RECORDS SUMMARY | 2025-01-30 09:52 | XMS_ITS | Patient Health Record ---
Author Organization [facility] Address [address] [place] [address] [place] [address] Care Team Providers Care Platen Press Feeder Name Role Phone EvelynAnnabellerojelio Primary Care Provider UnavailAlexandro Gan Unavailable [phone] Reason For Referral No Information Plan Of Treatment No Information Insurance Providers Payer Name Payer Address Payer Phone Subscriber Number Group Number Insured Name Patient Relationship to Insured Coverage Start Date Coverage End Date Medicare Part B J-15 Part [facility] [place] [address] [place] [address] [id number] Kate Moore Self - patient is the insured [employer] [place] [address] [phone] [id number] Kate Moore Self - patient is the insured Medicaid [place] D[employer] of [employer] [address] [place] [address] [id number] Kate Moore Self - patient is the insured
--- OUTSIDE RECORDS SUMMARY | 2025-01-30 09:52 | XMS_ITS | Encounter Summary ---
Author Organization [facility] Address [address] [facility] [place] [address] Care Team Providers Care Office Worker Name Role Phone Shawn Barber MD Unavailable [phone] Shawn Barber MD Primary Care Provider Wednesday, Randee CONSUMER SALES REPRESENTATIVE Unavailable [phone] Becca Campos EMBROIDERY PATTERNMAKER Unavailable Hilary Frank RN Unavailable Kaylen Moore CONSUMER SALES REPRESENTATIVE Unavailable Encounter Details Date Type Department Care Team (Late st Contact Info) Description 12/14/2023 Abstract [facility] [place] [facility] 112 [facility] [facility] 110 [place] [address] Shawn Barber MD 112 [facility] 110 [place], [place] [address] Social History Tobacco Use Types Packs/Day Years [...] attend chur ch or baptism services? Never 12/06/2023 Do you belong to any clubs o r organizations such as buddhist groups, unions, fraternal or athletic groups, or [...] Recorded Patient Health Questionnaire-2 Score 1 11/25/2022 [facility] of Occupat ional Health - [...] [address] [place] [address] Shawn Barber MD [address] [place] [address] 03/15/2025 3:10 PM EST Office Visit [facility] [address] [place] [address] Colt Mendieta, DPM [facility] 5 [place] [address] documented as of this encounter Visit Diagnoses Not on filedocumented in this encounter Care Teams Office Worker Relationship Specialty Start Date End Date Shawn Barber MD [address] [place] [address] PCP - ACO Reach 09/24/22 Shawn Barber MD [address] [place] [address] PCP - General Internal Medicine 10/22/22WednesdayRandee LPN [address] [place] [address] Licensed Practical Nurse Family Medicine 12/29/22 06/09/24 Becca Campos LSW [address] [place] [address] Bicycle Mechanic Family Medicine 12/29/22 08/24/24 Hilary Frank, RN [address] [place] [address] Licensed Practical Nurse Family Medicine 06/09/24 07/21/24 Kaylen Moore LPN [address] [place] [address] 07/21/24 documented as of this encounter
--- OUTSIDE RECORDS SUMMARY | 2025-01-30 09:52 | XMS_ITS | Encounter Summary ---
Author Organization [facility] Address [address] [facility] [place] [address] Care Team Providers Care Pharmaceutical Laboratory Technician Name Role Phone Shawn Barber MD Unavailable [phone] Shawn Barber MD Primary Care Provider Wednesday, Randee DATA MODELER Unavailable [phone] Becca Campos MANAGER ELECTRICAL Unavailable Hilary Frank RN Unavailable Kaylen Moore DATA MODELER Unavailable Encounter Details Date Type Department Care Team (Late st Contact Info) Description 12/29/2023 Abstract [facility] [place] [facility] 112 [facility] [facility] 110 [place] [address] Shawn Barber MD 112 [facility] 110 [place] [address] Social History Tobacco Use Types [...] Recorded Patient Health Questionnaire-2 Score 1 11/25/2022 [facility] of Occupat ional Health - Occupational [...] any time in the past 12 m [facility], were you homeless or living in a [...] [address] [place] [address] Shawn Barber MD [address] [place] [address] 03/15/2025 3:10 PM EST Office Visit [facility] [address] [place] [address] Colt Mendieta, DPM [facility] [facility] 5 [place] [address] documented as of this encounter Visit Diagnoses Not on filedocumented in this encounter Care Teams Pharmaceutical Laboratory Technician Relationship Specialty Start Date End Date Shawn Barber MD [address] [place] [address] PCP - ACO Reach 09/24/22 Shawn Barber MD [address] [place] [address] PCP - General Internal Medicine 10/22/22WednesdayRandee LPN [address] [place] [address] Licensed Practical Nurse Family Medicine 12/29/22 06/09/24 Becca Campos LSW [address] [place] [address] Roll Mechanic Family Medicine 12/29/22 08/24/24 Hilary Frank, RN [address] [place] [address] Licensed Practical Nurse Family Medicine 06/09/24 07/21/24 Kaylen Moore LPN [address] [place] [address] 07/21/24 documented as of this encounter
--- OUTSIDE RECORDS SUMMARY | 2025-01-30 09:53 | XMS_ITS | Encounter Summary ---
Author Organization [facility] Address [address] [facility] [place] [address] Care Team Providers Care Players Assistant Name Role Phone Shawn Barber MD Unavailable [phone] Shawn Barber MD Primary Care Provider Wednesday, Randee MANAGER BIOSTATISTICS Unavailable [phone] Becca Campos STATION WORKER Unavailable [phone] Hilary Frank RN Unavailable Kaylen Moore MANAGER BIOSTATISTICS Unavailable Encounter Details Date Type Department Care Team (Late st Contact Info) Description 03/15/2023 Abstract [facility] [place] [facility] 112 [facility] 110 [place] [address] Shawn Barber MD [address] [facility] 110 [place], [place] [address] Social History Tobacco Use Types Packs/Day Years [...] often do you attend chur ch or mormonism services? Never 01/29/2023 Do you [...] Questionnaire-2 Score 1 11/25/2022 [facility] [...] Office Visit [facility] [place] [facility] [address] [facility] 110 [place] [address] Shawn Barber MD [address] [facility] 110 [place] [address] 03/15/2025 3:10 PM EST Office Visit [facility] [address] [place] [address] Colt Mendieta, DPM 3006 [facility] 5 [place] [address] documented as of this encounter Visit Diagnoses Not on filedocumented in this encounter Care Teams Players Assistant Relationship Specialty Start Date End Date Shawn Barber MD [address] [place] [address] PCP - ACO Reach 09/24/22 Shawn Barber MD [address] [facility] 110 [place] [address] PCP - General Internal Medicine 10/22/22WednesdayRandee LPN [address] [place] [address] Licensed Practical Nurse Family Medicine 12/29/22 06/09/24 Becca Campos, STATION WORKER [address] [place] [address] Campus Chaplain Family Medicine 12/29/22 08/24/24 Hilary Frank, RN [address] [place] [address] Licensed Practical Nurse Family Medicine 06/09/24 07/21/24 Kaylen Moore LPN [address] [place] [address] 07/21/24 documented as of this encounter
--- OUTSIDE RECORDS SUMMARY | 2025-01-30 09:53 | XMS_ITS | Encounter Summary ---
Author Organization [facility] Address [address] [facility] [place] [address] Care Team Providers Care Hourly Associate Name Role Phone Shawn Barber MD Unavailable [phone] Shawn Barber MD Primary Care Provider Wednesday, Randee TEXTILE PIN WORKER Unavailable [phone] ATTENDANT Unavailable Hilary Frank RN Unavailable [phone] Kaylen Moore TEXTILE PIN WORKER Unavailable Encounter Details Date Type Department Care Team (Late st Contact Info) Description 03/15/2023 Abstract [facility] [place] [facility] 112 [facility] 110 [place] [address] Shawn Barber MD 112 [facility] 110 [place], [place] [address] Social History Tobacco Use Types Packs/Day Years [...] Recorded Patient Health Questionnaire-2 Score 1 11/25/2022 [facility] - Occupational Stress Questionnaire [...] Office Visit [facility] [place] [facility] [address] [facility] 110 [place] [address] Shawn Barber MD 112 [place] [facility] 110 [place] [address] 03/15/2025 3:10 PM EST Office Visit [facility] [address] [place] [address] Colt Mendieta, DPM 3006 [facility] 5 [place] [address] documented as of this encounter Visit Diagnoses Not on filedocumented in this encounter Care Teams Hourly Associate Relationship Specialty Start Date End Date Shawn Barber MD [address] [place] [address] PCP - ACO Reach 09/24/22 Shawn Barber MD [address] [facility] 110 [place] [address] PCP - General Internal Medicine 10/22/22WednesdayRandee LPN [address] [place] [address] Licensed Practical Nurse Family Medicine 12/29/22 06/09/24 Becca Campos, LANE ATTENDANT [address] [place] [address] Grey Iron Molder Family Medicine 12/29/22 08/24/24 Hilary Frank, RN [address] [place] [address] Licensed Practical Nurse Family Medicine 06/09/24 07/21/24 Kaylen Moore LPN [address] [place] [address] 07/21/24 documented as of this encounter
--- OUTSIDE RECORDS SUMMARY | 2025-01-30 09:53 | XMS_ITS | Encounter Summary ---
Author Organization [facility] Address [address] [facility] [place] [address] Care Team Providers Care Water Leak Repairer Name Role Phone Shawn Barber MD Unavailable [phone] Shawn Barber MD Primary Care Provider Wednesday, Randee DISTRICT SALES REPRESENTATIVE Unavailable [phone] Becca Campos SCHOOL CUSTODIAN Unavailable Hilary Frank RN Unavailable [phone] Kaylen Moore DISTRICT SALES REPRESENTATIVE Unavailable Encounter Details Date Type Department Care Team (Late st Contact Info) Description 03/15/2023 Abstract [facility] [place] [facility] 112 [facility] 110 [place] [address] Shawn Barber MD 112 [facility] 110 [place], [place] [address] Social History Tobacco Use Types Packs/Day Years [...] Recorded Patient Health Questionnaire-2 Score 1 11/25/2022 [facility] ional [...] Office Visit [facility] [place] [facility] 112 [address] [facility] 110 [place] [address] Shawn Barber MD [address] [place] [facility] 110 [place] [address] 03/15/2025 3:10 PM EST Office Visit [facility] [address] [place] [address] Colt Mendieta, DPM 3006 [facility] 5 [place] [address] documented as of this encounter Visit Diagnoses Not on filedocumented in this encounter Care Teams Water Leak Repairer Relationship Specialty Start Date End Date Shawn Barber MD [address] [place] [address] PCP - ACO Reach 09/24/22 Shawn Barber MD [address] [facility] 110 [place] [address] PCP - General Internal Medicine 10/22/22WednesdayRandee LPN [address] [place] [address] Licensed Practical Nurse Family Medicine 12/29/22 06/09/24 Becca Campos, SCHOOL CUSTODIAN [address] [place] [address] Stick Welder Family Medicine 12/29/22 08/24/24 Hilary Frank, RN [address] [place] [address] Licensed Practical Nurse Family Medicine 06/09/24 07/21/24 Kaylen Moore LPN [address] [place] [address] 07/21/24 documented as of this encounter
--- OUTSIDE RECORDS SUMMARY | 2025-01-30 09:53 | XMS_ITS | Encounter Summary ---
Author Organization [facility] Address [address] [facility] [place] [address] Care Team Providers Care Oak Tanner Name Role Phone Shawn Barber MD Unavailable [phone] Shawn Barber MD Primary Care Provider Wednesday, Randee MANAGER VIDEO GAMES Unavailable [phone] Becca Campos BLASTING MACHINE OPERATOR Unavailable Hilary Frank RN Unavailable [phone] Kaylen Moore MANAGER VIDEO GAMES Unavailable Encounter Details Date Type Department Care Team (Late st Contact Info) Description 04/21/2024 Abstract [facility] [place] [facility] 112 [address] [facility] 110 [place] [address] Shawn Barber MD 112 [facility] 110 [place], [place] [address] Social History Tobacco Use Types Packs/Day Years [...] often do you attend chur ch or druze services? Never 12/06/2023 Do you belong to [...] Recorded Patient Health Questionnaire-2 Score 1 11/25/2022 [facility] of Occupat ional Health - Occupational Stress [...] [address] [place] [address] Shawn Barber MD [address] [place] [address] 03/15/2025 3:10 PM EST Office Visit [facility] [address] [place] [address] Colt Mendieta, DPM 3006 [facility] 5 [place] [address] documented as of this encounter Visit Diagnoses Not on filedocumented in this encounter Care Teams Oak Tanner Relationship Specialty Start Date End Date Shawn Barber MD [address] [place] [address] PCP - ACO Reach 09/24/22 Shawn Barber MD [address] [place] [address] PCP - General Internal Medicine 10/22/22WednesdayRandee LPN [address] [place] [address] Licensed Practical Nurse Family Medicine 12/29/22 06/09/24 Becca Capmos LSW [address] [place] [address] Magician/Illusionist Family Medicine 12/29/22 08/24/24 Hilary Frank, RN [address] [place] [address] Licensed Practical Nurse Family Medicine 06/09/24 07/21/24 Kaylen Moore LPN [address] [place] [address] 07/21/24 documented as of this encounter
--- OUTSIDE RECORDS SUMMARY | 2025-01-30 09:53 | XMS_ITS | Encounter Summary ---
Author Organization [facility] Address [address] [facility] [place] [address] Care Team Providers Care Etymology Teacher Name Role Phone Shawn Barber MD Unavailable [phone] Shawn Barber MD Primary Care Provider Wednesday, Randee LITHOGRAPHIC ETCHER Unavailable [phone] Becca Campos SCRUBBER SYSTEM ATTENDANT Unavailable Hilary Frank RN Unavailable [phone] Kaylen Moore LITHOGRAPHIC ETCHER Unavailable Encounter Details Date Type Department Care Team (Late st Contact Info) Description 03/15/2023 Abstract [facility] [place] [facility] 112 [facility] 110 [place] [address] Shawn Barber MD [address] [facility] 110 [place], [place] [address] Social History Tobacco Use Types Packs/Day Years [...] attend chur ch or tenriism services? Never 01/29/2023 Do you belong to [...] [facility] - Occupational Stress [...] Office Visit [facility] [place] [facility] [address] [facility] 110 [place] [address] Shawn Barber MD 112 [facility] 110 [place] [address] 03/15/2025 3:10 PM EST Office Visit [facility] [address] [place] [address] Colt Mendieta, DPM 3006 [facility] 5 [place] [address] documented as of this encounter Visit Diagnoses Not on filedocumented in this encounter Care Teams Etymology Teacher Relationship Specialty Start Date End Date Shawn Barber MD [address] [place] [address] PCP - ACO Reach 09/24/22 Shawn Barber MD [address] [facility] 110 [place] [address] PCP - General Internal Medicine 10/22/22WednesdayRandee LPN [address] [place] [address] Licensed Practical Nurse Family Medicine 12/29/22 06/09/24 Becca Campos, SCRUBBER SYSTEM ATTENDANT [address] [place] [address] Lcac Operator Family Medicine 12/29/22 08/24/24 Hilary Frank, RN [address] [place] [address] Licensed Practical Nurse Family Medicine 06/09/24 07/21/24 Kaylen Moore LPN [address] [place] [address] 07/21/24 documented as of this encounter
--- OUTSIDE RECORDS SUMMARY | 2025-01-30 09:53 | XMS_ITS | Encounter Summary ---
Author Organization [facility] Address [address] [facility] [place] [address] Care Team Providers Care Hotel Guest Service Agent Name Role Phone Shawn Barber MD Unavailable [phone] Shawn Barber MD Primary Care Provider [phone] Kaylen Moore LPN Unavailable Encounter Details Date Type Department Care Team (Late st Contact Info) Description 01/29/2025 Abstract [facility] [place] [facility] [address] [facility] 110 [place] [address] Shawn Barber MD [address] [place] [facility] 110 [place], [place] [address] Social History Tobacco Use Types Packs/Day Years [...] How often do you attend chur or tenriism services? Never 12/06/2023 Do you belong to any clubs o r organizations such as alevism groups, unions, fraternal or athletic groups, or [...] Recorded Patient Health Questionnaire-2 Score 0 2024 [facility] [place] of Occupat ional Health - Occupational Stress [...] any time in the past 12 m [facility], were you homeless or living in a [...] Visit [facility] [place] [facility] [address] [facility] 110 [place] [address] Shawn Barber MD [address] [place] [address] 03/15/2025 3:10 PM EST Office Visit [facility] [address] [facility] 120 [place] [address] Colt Mendieta, DPM 3006 [facility] 5 [place] [address] documented as of this encounter Visit Diagnoses Not on filedocumented in this encounter Care Teams Hotel Guest Service Agent Relationship Specialty Start Date End Date Shawn Barber MD [address] [facility] [address] [place] [address] PCP - ACO Reach 09/24/22 Shawn Barber MD [address] [facility] 110 [place] [address] PCP - General Internal Medicine 10/22/22 Kaylen Moore LPN [address] [facility] 110 [place] [address] 07/21/24 documented as of this encounter
--- OUTSIDE RECORDS SUMMARY | 2025-01-30 09:53 | XMS_ITS | Encounter Summary ---
Author Organization [facility] Address [address] [facility] [place] [address] Care Team Providers Care Gold Miner Blasting Name Role Phone Shawn Barber MD Unavailable [phone] Shawn Barber MD Primary Care Provider [phone] Kaylen Moore LPN Unavailable Encounter Details Date Type Department Care Team (Late st Contact Info) Description 12/13/2024 Abstract [facility] [place] [facility] [address] [facility] 110 [place] [address] Shawn Barber MD [address] [place] [facility] 110 [place], [place] [address] Social History Tobacco Use Types Packs/Day Years [...] How often do you attend chur or methodist services? Never 12/06/2023 Do you belong to [...] Recorded Patient Health Questionnaire-2 Score 0 2024 [facility] of Occupat ional Health - Occupational Stress [...] any time in the past 12 m [facility], were you homeless or living in a [...] Visit [facility] [place] [facility] [address] [facility] 110 [place] [address] Shawn Barber MD [address] [place] [address] 03/15/2025 3:10 PM EST Office Visit [facility] [address] [facility] 120 [place] [address] Colt Mendieta, DPM 3006 [facility] 5 [place] [address] documented as of this encounter Visit Diagnoses Not on filedocumented in this encounter Care Teams Gold Miner Blasting Relationship Specialty Start Date End Date Shawn Barber MD [address] [email or web address] 110 [place] [address] PCP - ACO Reach 09/24/22 Shawn Barber MD [address] [email or web address] 110 [place] [address] PCP - General Internal Medicine 10/22/22 Kaylen Moore LPN [address] [email or web address] 110 [place] [address] 07/21/24 documented as of this encounter
--- OUTSIDE RECORDS SUMMARY | 2025-01-30 09:53 | XMS_ITS | Encounter Summary ---
Author Organization [facility] Address [address] [facility] [place] [address] Care Team Providers Care Elementary Esl Teacher Name Role Phone Shawn Barber MD Unavailable [phone] Shawn Barber MD Primary Care Provider Wednesday, Randee METAL FINISH INSPECTOR Unavailable [phone] Becca Campos AUTOMATIC LATHE SETTER Unavailable Hilary Frank RN Unavailable Kaylen Moore METAL FINISH INSPECTOR Unavailable Encounter Details Date Type Department Care Team (Late st Contact Info) Description 04/14/2024 Abstract [facility] [place] [facility] [address] [facility] 110 [place] [address] Shawn Barber MD 112 [facility] 110 [place], [place] [address] Social History Tobacco Use Types Packs/Day Years [...] Patient Health Questionnaire-2 Score 1 11/25/2022 [facility] of Occupat ional Health [...] [address] [place] [address] Shawn Barber MD [address] [place] [address] 03/15/2025 3:10 PM EST Office Visit [facility] [address] [place] [address] Colt Mendieta, DPM 3006 [facility] 5 [place] [address] documented as of this encounter Visit Diagnoses Not on filedocumented in this encounter Care Teams Elementary Esl Teacher Relationship Specialty Start Date End Date Shawn Barber MD [address] [place] [address] PCP - ACO Reach 09/24/22 Shawn Barber MD [address] [place] [address] PCP - General Internal Medicine 10/22/22WednesdayRandee LPN [address] [place] [address] Licensed Practical Nurse Family Medicine 12/29/22 06/09/24 Becca Campos LSW [address] [place] [address] Manager Ob Family Medicine 12/29/22 08/24/24 Hilary Frank, RN [address] [place] [address] Licensed Practical Nurse Family Medicine 06/09/24 07/21/24 Kaylen Moore LPN [address] [place] [address] 07/21/24 documented as of this encounter
--- OUTSIDE RECORDS SUMMARY | 2025-01-30 09:53 | XMS_ITS | Encounter Summary ---
Author Organization [facility] Address [address] [facility] [place] [address] Care Team Providers Care Printing Machine Operator Name Role Phone Shawn Barber MD Unavailable [phone] Shawn Barber MD Primary Care Provider Wednesday, Randee WAGON WINDER Unavailable [phone] Becca Campos PICCOLO MECHANIC Unavailable Hilary Frank RN Unavailable Kaylen Moore WAGON WINDER Unavailable Encounter Details Date Type Department Care Team (Late st Contact Info) Description 11/30/2023 Abstract [facility] [place] [facility] 112 [facility] 110 [place] [address] Shawn Barber MD 112 [facility] 110 [place] [address] Social History Tobacco Use Types [...] attend chur ch or druze services? Never 01/29/2023 Do you belong to [...] Recorded Patient Health Questionnaire-2 Score 1 11/25/2022 [facility] of Occupat ional Health - Occupational Stress [...] Visit [facility] [place] [facility] [address] [facility] 110 [place] [address] Shawn Barber MD [address] [facility] 110 [place] [address] 03/15/2025 3:10 PM EST Office Visit [facility] [address] [place] [address] Colt Mendieta, DPM 3006 [facility] 5 [place] [address] documented as of this encounter Visit Diagnoses Not on filedocumented in this encounter Care Teams Printing Machine Operator Relationship Specialty Start Date End Date Shawn Barber MD [address] [place] [address] PCP - ACO Reach 09/24/22 Shawn Barber MD [address] [place] [address] PCP - General Internal Medicine 10/22/22WednesdayRandee LPN [address] [place] [address] Licensed Practical Nurse Family Medicine 12/29/22 06/09/24 Becca Campos, NAY [address] [place] [address] Kindergarten Teacher Family Medicine 12/29/22 08/24/24 Hilary Frank, RN [address] [place] [address] Licensed Practical Nurse Family Medicine 06/09/24 07/21/24 Kaylen Moore LPN [address] [place] [address] 07/21/24 documented as of this encounter
--- OUTSIDE RECORDS SUMMARY | 2025-01-30 09:53 | XMS_ITS | Encounter Summary ---
Author Organization [facility] Address [address] [facility] [place] [address] Care Team Providers Care Shear Grinder Operator Helper Name Role Phone Shawn Barber MD Unavailable [phone] Shawn Barber MD Primary Care Provider [phone] Wednesday, Randee BUSINESS MANAGER COLLEGE OR UNIVERSITY Unavailable [phone] Becca Campos INFORMATICS SPECIALIST Unavailable [phone] Hilary Frank RN Unavailable [phone] Kaylen Moore BUSINESS MANAGER COLLEGE OR UNIVERSITY Unavailable Encounter Details Date Type Department Care Team (Late st Contact Info) Description 03/22/2023 Abstract [facility] [place] [facility] [address] [facility] 110 [place] [address] Shawn Barber MD 112 [facility] 110 [place], [place] [address] Social History Tobacco Use Types Packs/Day Years [...] Recorded Patient Health Questionnaire-2 Score 1 11/25/2022 [facility] [...] Office Visit [facility] [place] [facility] [address] [facility] 110 [place] [address] Shawn Barber MD [address] [facility] 110 [place] [address] 03/15/2025 3:10 PM EST Office Visit [facility] [address] [place] [address] Colt Mendieta, DPM 3006 [facility] 5 [place] [address] documented as of this encounter Visit Diagnoses Not on filedocumented in this encounter Care Teams Shear Grinder Operator Helper Relationship Specialty Start Date End Date Shawn Barber MD [address] [place] [address] PCP - ACO Reach 09/24/22 Shawn Barber MD [address] [facility] 110 [place] [address] PCP - General Internal Medicine 10/22/22WednesdayRandee LPN [address] [place] [address] Licensed Practical Nurse Family Medicine 12/29/22 06/09/24 Becca Campos, INFORMATICS SPECIALIST [address] [place] [address] Embossing Toolsetter Family Medicine 12/29/22 08/24/24 Hilary Frank, RN [address] [place] [address] Licensed Practical Nurse Family Medicine 06/09/24 07/21/24 Kaylen Moore LPN [address] [place] [address] 07/21/24 documented as of this encounter
--- OUTSIDE RECORDS SUMMARY | 2025-01-30 09:53 | XMS_ITS | Encounter Summary ---
Author Organization [facility] Address [address] [facility] [place] [address] Care Team Providers Care Childhood Teacher Name Role Phone Shawn Barber MD Unavailable [phone] Shawn Barber MD Primary Care Provider [phone] Kaylen Moore LPN Unavailable Encounter Details Date Type Department Care Team (Late st Contact Info) Description 12/13/2024 Abstract [facility] [place] [facility] [address] [facility] 110 [place] [address] Shawn Barber MD 112 [facility] 110 [place], [place] [address] Social History Tobacco Use Types Packs/Day Years [...] How often do you attend chur or jain services? Never 12/06/2023 Do you [...] Recorded Patient Health Questionnaire-2 Score 0 2024 [facility] of Occupat ional Health - Occupational Stress [...] you homeless or living in a senior living (including now)? No 12/06/2023 Comments Unknown Sex [...] Visit [facility] [place] [facility] [address] [facility] 110 [place] [address] Shawn Barber MD [address] [place] [address] 03/15/2025 3:10 PM EST Office Visit [facility] [address] [facility] 120 [place] [address] Colt Mendieta, DPM 3006 [facility] 5 [place] [address] documented as of this encounter Visit Diagnoses Not on filedocumented in this encounter Care Teams Childhood Teacher Relationship Specialty Start Date End Date Shawn Barber MD [address] [facility] 110 [place] [address] PCP - ACO Reach 09/24/22 Shawn Barber MD [address] [facility] 110 [place] [address] PCP - General Internal Medicine 10/22/22 Kaylen Moore LPN [address] [facility] 110 [place] [address] 07/21/24 documented as of this encounter
--- OUTSIDE RECORDS SUMMARY | 2025-01-30 09:53 | XMS_ITS | Encounter Summary ---
Author Organization [facility] Address [address] [facility] [place] [address] Care Team Providers Care Drier Operator Helper Name Role Phone Shawn Barber MD Unavailable [phone] Shawn Barebr MD Primary Care Provider [phone] Kaylen Moore LPN Unavailable Encounter Details Date Type Department Care Team (Late st Contact Info) Description 01/04/2025 Abstract [facility] [place] [facility] [address] [facility] 110 [place] [address] Shawn Barber MD [address] [facility] 110 [place], [place] [address] Social History Tobacco Use Types Packs/Day Years [...] How often do you attend chur or mu-ism services? Never 12/06/2023 Do you belong to [...] Recorded Patient Health Questionnaire-2 Score 0 2024 [facility] of Occupat ional Health - Occupational Stress [...] Visit [facility] [place] [facility] [address] [facility] 110 [place] [address] Shawn Barber MD [address] [place] [address] 03/15/2025 3:10 PM EST Office Visit [facility] [address] [facility] 120 [place] [address] Colt Mendieta, DPM 3006 [facility] 5 [place] [address] documented as of this encounter Visit Diagnoses Not on filedocumented in this encounter Care Teams Drier Operator Helper Relationship Specialty Start Date End Date Shawn Barber MD [address] [facility] 110 [place] [address] PCP - ACO Reach 09/24/22 Shawn Barber MD [address] [facility] 110 [place] [address] PCP - General Internal Medicine 10/22/22 Kaylen Moore LPN [address] [facility] 110 [place] [address] 07/21/24 documented as of this encounter
--- OUTSIDE RECORDS SUMMARY | 2025-01-30 09:53 | XMS_ITS | Encounter Summary ---
Author Organization [facility] Address [address] [facility] [place] [address] Care Team Providers Care Crane Engineer Name Role Phone Shawn Barber MD Unavailable [phone] Shawn Barber MD Primary Care Provider [phone] Kaylen Moore LPN Unavailable Encounter Details Date Type Department Care Team (Late st Contact Info) Description 12/18/2024 Abstract [facility] [place] [facility] [address] [facility] 110 [place] [address] Shawn Barber MD 112 [address] [facility] 110 [place], [place] [address] Social History Tobacco Use Types Packs/Day Years [...] How often do you attend chur or christianity services? Never 12/06/2023 Do you belong to [...] Recorded Patient Health Questionnaire-2 Score 0 2024 [facility] of Occupat ional Health - Occupational Stress [...] Description 02/05/2025 2:00 PM EDT Office Visit [facility] [place] o[facility] [address] [facility] 110 [place] [address] Shawn Barber MD [address] [place] [address] 03/15/2025 3:10 PM EST Office Visit [facility] [address] [facility] 120 [place] [address] Colt Mendieta, DPM 3006 [facility] 5 [place] [address] documented as of this encounter Visit Diagnoses Not on filedocumented in this encounter Care Teams Crane Engineer Relationship Specialty Start Date End Date Shawn Barber MD [address] [facility] 110 [place] [address] PCP - ACO Reach 09/24/22 Shawn Barber MD [address] [facility] 110 [place] [address] PCP - General Internal Medicine 10/22/22 Kaylen Moore LPN [address] [facility] 110 [place] [address] 07/21/24 documented as of this encounter
--- OUTSIDE RECORDS SUMMARY | 2025-01-30 09:53 | XMS_ITS | Encounter Summary ---
Author Organization [facility] Address [address] [facility] [place] [address] Care Team Providers Care Railroad Firer/Fireman Name Role Phone Shawn Barber MD Unavailable [phone] Shawn Barber MD Primary Care Provider Wednesday, Randee PUBLIC HEALTH DENTIST Unavailable [phone] Becca Campos NOVELTY BALLOON ASSEMBLER AND PACKER Unavailable Hilary Frank RN Unavailable [phone] Kaylen Moore PUBLIC HEALTH DENTIST Unavailable Encounter Details Date Type Department Care Team (Late st Contact Info) Description 03/16/2024 Abstract [facility] [place] [facility] [address] [facility] 110 [place] [address] Shawn Barber MD 112 [facility] 110 [place], [place] [address] Social History Tobacco Use Types Packs/Day Years [...] often do you attend chur ch or judaism services? Never 12/06/2023 Do you belong to [...] Recorded Patient Health Questionnaire-2 Score 1 11/25/2022 [facility] of Occupat ional Health - [...] [address] [place] [address] Shawn Barber MD [address] [place] [address] 03/15/2025 3:10 PM EST Office Visit [facility] [address] [place] [address] Colt Mendieta, DPM 3006 [facility] 5 [place] [address] documented as of this encounter Visit Diagnoses Not on filedocumented in this encounter Care Teams Railroad Firer/Fireman Relationship Specialty Start Date End Date Shawn Barber MD [address] [place] [address] PCP - ACO Reach 09/24/22 Shawn Barber MD [address] [place] [address] PCP - General Internal Medicine 10/22/22WednesdayRandee LPN [address] [place] [address] Licensed Practical Nurse Family Medicine 12/29/22 06/09/24 Becca Campos LSW [address] [place] [address] Stud Sheep Farmer Family Medicine 12/29/22 08/24/24 Hilary Frank, RN [address] [place] [address] Licensed Practical Nurse Family Medicine 06/09/24 07/21/24 Kaylen Moore LPN [address] [place] [address] 07/21/24 documented as of this encounter
--- OUTSIDE RECORDS SUMMARY | 2025-01-30 09:53 | XMS_ITS | Encounter Summary ---
Author Organization [facility] Address [address] [facility] [place] [address] Care Team Providers Care Wheel Aligner Name Role Phone Shawn Barber MD Unavailable [phone] Shawn Barber MD Primary Care Provider Wednesday, Randee ACCOUNT REPRESENTATIVE Unavailable [phone] Becca Campos CHISEL WORKER Unavailable Hilary Frank RN Unavailable [phone] Kaylen Moore ACCOUNT REPRESENTATIVE Unavailable Encounter Details Date Type Department Care Team (Late st Contact Info) Description 03/10/2023 Abstract [facility] [place] [facility] [address] [facility] 110 [place] [address] Shawn Barber MD 112 [facility] 110 [place], [place] [address] Social History Tobacco Use Types Packs/Day Years [...] attend chur ch or voodoo services? Never 01/29/2023 Do you belong to any clubs o r organizations such as jew groups, unions, fraternal or athletic groups, or [...] Recorded Patient Health Questionnaire-2 Score 1 11/25/2022 [facility] - Occupational [...] [facility] [place] [facility] [address] [facility] 110 [place] [address] Shawn Barber MD [address] [place] [facility] 110 [place] [address] 03/15/2025 3:10 PM EST Office Visit [facility] [address] [place] [address] Colt Mendieta, DPM 3006 [facility] 5 [place] [address] documented as of this encounter Visit Diagnoses Not on filedocumented in this encounter Care Teams Wheel Aligner Relationship Specialty Start Date End Date Shawn Barber MD [address] [place] [address] PCP - ACO Reach 09/24/22 Shawn Barber MD [address] [facility] 110 [place] [address] PCP - General Internal Medicine 10/22/22WednesdayRandee LPN [address] [place] [address] Licensed Practical Nurse Family Medicine 12/29/22 06/09/24 Becca Campos, CHISEL WORKER [address] [place] [address] Mercerizing Range Feeder Family Medicine 12/29/22 08/24/24 Hilary Frank, RN [address] [place] [address] Licensed Practical Nurse Family Medicine 06/09/24 07/21/24 Kaylen Moore LPN [address] [place] [address] 07/21/24 documented as of this encounter
--- OUTSIDE RECORDS SUMMARY | 2025-01-30 09:53 | XMS_ITS | Encounter Summary ---
Author Organization [facility] Address [address] [place] [address] Care Team Providers Care Test Preparer Name Role Phone Shawn Barber MD Unavailable [phone] Shawn Barber MD Primary Care Provider [phone] Wednesday, Randee DIELECTRIC EMBOSSING MACHINE OPERATOR Unavailable [phone] Becca Campos LANDING WORKER Unavailable Hilary Frank RN Unavailable [phone] Kaylen Moore DIELECTRIC EMBOSSING MACHINE OPERATOR Unavailable Encounter Details Date Type Department Care Team (Late st Contact Info) Description 03/11/2023 Abstract [facility] [place] [facility] 112 [facility] 110 [place] [address] Shawn Barber MD 112 [facility] 110 [place], [place] [address] Social History Tobacco Use Types Packs/Day Years [...] Recorded Patient Health Questionnaire-2 Score 1 11/25/2022 [facility] - [...] Office Visit [facility] [place] [facility] [address] [facility] 110 [place] [address] Shawn Barber MD [address] [place] [facility] 110 [place] [address] 03/15/2025 3:10 PM EST Office Visit [facility] [address] [place] [address] Colt Mendieta, DPM 3006 [facility] 5 [place] [address] documented as of this encounter Visit Diagnoses Not on filedocumented in this encounter Care Teams Test Preparer Relationship Specialty Start Date End Date Shawn Barber MD [address] [place] [address] PCP - ACO Reach 09/24/22 Shawn Barber MD [address] [facility] 110 [place] [address] PCP - General Internal Medicine 10/22/22WednesdayRandee LPN [address] [place] [address] Licensed Practical Nurse Family Medicine 12/29/22 06/09/24 Becca Campos, LANDING WORKER [address] [place] [address] Manager Recruiting Family Medicine 12/29/22 08/24/24 Hilary Frank, RN [address] [place] [address] Licensed Practical Nurse Family Medicine 06/09/24 07/21/24 Kaylen Moore LPN [address] [place] [address] 07/21/24 documented as of this encounter
--- OUTSIDE RECORDS SUMMARY | 2025-01-30 09:53 | XMS_ITS | Encounter Summary ---
Author Organization [facility] Address [address] [facility] [place] [address] Care Team Providers Care Clinical Nursing Instructor Name Role Phone Shawn Barber MD Unavailable [phone] Shawn Barber MD Primary Care Provider [phone] Wednesday, Randee HIGH SCHOOL BUSINESS TEACHER Unavailable [phone] Becca Campos DAY CARE HOME PROVIDER Unavailable Hilary Frank RN Unavailable [phone] Kaylen Moore HIGH SCHOOL BUSINESS TEACHER Unavailable Encounter Details Date Type Department Care Team (Late st Contact Info) Description 04/20/2024 Abstract [facility] [place] [facility] [address] [facility] 110 [place] [address] Shawn Barber MD 112 [facility] 110 [place], [place] [address] Social History Tobacco Use Types Packs/Day Years [...] often do you attend chur ch or hindu services? Never 12/06/2023 Do you belong to [...] Recorded Patient Health Questionnaire-2 Score 1 11/25/2022 [facility] of Occupat ional Health - [...] [address] [place] [address] Shawn Barber MD [address] [place] [address] 03/15/2025 3:10 PM EST Office Visit [facility] [address] [place] [address] Colt Mendieta, DPM 3006 [facility] 5 [place] [address] documented as of this encounter Visit Diagnoses Not on filedocumented in this encounter Care Teams Clinical Nursing Instructor Relationship Specialty Start Date End Date Shawn Barber MD [address] [place] [address] PCP - ACO Reach 09/24/22 Shawn Barber MD [address] [place] [address] PCP - General Internal Medicine 10/22/22WednesdayRandee LPN [address] [place] [address] Licensed Practical Nurse Family Medicine 12/29/22 06/09/24 Becca Campos LSW [address] [place] [address] Resident Services Manager Family Medicine 12/29/22 08/24/24 Hilary Frank, RN [address] [place] [address] Licensed Practical Nurse Family Medicine 06/09/24 07/21/24 Kaylen Moore LPN [address] [place] [address] 07/21/24 documented as of this encounter
--- OUTSIDE RECORDS SUMMARY | 2025-01-30 09:53 | XMS_ITS | Encounter Summary ---
Author Organization [facility] Address [address] [facility] [place] [address] Care Team Providers Care Blender / Cook Name Role Phone Shawn Barber MD Unavailable [phone] Shawn Barber MD Primary Care Provider [phone] Wednesday, Randee COMMERCIAL LINES ACCOUNT ASSISTANT Unavailable [phone] Becca Campos DRILLING MACHINE RUNNER Unavailable Hilary Frank RN Unavailable Kaylen Moore COMMERCIAL LINES ACCOUNT ASSISTANT Unavailable Encounter Details Date Type Department Care Team (Late st Contact Info) Description 03/11/2023 Abstract [facility] [place] [facility] 112 [facility] 110 [place] [address] Shawn Barber MD 112 [facility] 110 [place], [place] [address] Social History Tobacco Use Types Packs/Day Years [...] Score 1 11/25/[address] [facility] - Occupational Stress [...] 02/05/2025 2:00 PM EDT Office Visit [facility] [place] [facility] [address] [facility] 110 [place] [address] Shawn Barber MD 112 [facility] 110 [place] [address] 03/15/2025 3:10 PM EST Office Visit [facility] [address] [place] [address] Colt Mendieta, DPM 3006 [facility] 5 [place] [address] documented as of this encounter Visit Diagnoses Not on filedocumented in this encounter Care Teams Blender / Cook Relationship Specialty Start Date End Date Shawn Barber MD [address] [place] [address] PCP - ACO Reach 09/24/22 Shawn Barber MD [address] [facility] 110 [place] [address] PCP - General Internal Medicine 10/22/22WednesdayRandee LPN [address] [place] [address] Licensed Practical Nurse Family Medicine 12/29/22 06/09/24 Becca Campos, DRILLING MACHINE RUNNER [address] [place] [address] Account Service Associate Family Medicine 12/29/22 08/24/24 Hilary Frank, RN [address] [place] [address] Licensed Practical Nurse Family Medicine 06/09/24 07/21/24 Kaylen Moore LPN [address] [place] [address] 07/21/24 documented as of this encounter
--- OUTSIDE RECORDS SUMMARY | 2025-01-30 09:53 | XMS_ITS | Encounter Summary ---
Author Organization [facility] Address [address] [facility] [place] [address] Care Team Providers Care Snack Bar Attendant Name Role Phone Shawn Barber MD Unavailable [phone] Shawn Barber MD Primary Care Provider [phone] Wednesday, aRndee HIRED HELP Unavailable [phone] Becca Campos TEST CELL TECHNICIAN Unavailable Hilary Frank RN Unavailable Kaylen Moore HIRED HELP Unavailable Encounter Details Date Type Department Care Team (Late st Contact Info) Description 03/03/2023 Abstract [facility] [place] [facility] 112 [facility] 110 [place] [address] Shawn Barber MD 112 [facility] 110 [place], [place] [address] Social History Tobacco Use Types Packs/Day Years [...] Questionnaire-2 Score 1 11/25/2022 [facility] - [...] [facility] [place] [facility] [address] [facility] 110 [place] [address] Shawn Barber MD 112 [place] [facility] 110 [place] [address] 03/15/2025 3:10 PM EST Office Visit [facility] [address] [place] [address] Colt Mendieta, DPM 3006 [facility] 5 [place] [address] documented as of this encounter Visit Diagnoses Not on filedocumented in this encounter Care Teams Snack Bar Attendant Relationship Specialty Start Date End Date Shawn Barber MD [address] [place] [address] PCP - ACO Reach 09/24/22 Shawn Barber MD [address] [facility] 110 [place] [address] PCP - General Internal Medicine 10/22/22WednesdayRandee LPN [address] [place] [address] Licensed Practical Nurse Family Medicine 12/29/22 06/09/24 Becca Campos, TEST CELL TECHNICIAN [address] [place] [address] Laboratory Equipment Installer Family Medicine 12/29/22 08/24/24 Hilary Frank, RN [address] [place] [address] Licensed Practical Nurse Family Medicine 06/09/24 07/21/24 Kaylen Moore LPN [address] [place] [address] 07/21/24 documented as of this encounter
--- OUTSIDE RECORDS SUMMARY | 2025-01-30 09:53 | XMS_ITS | Encounter Summary ---
Author Organization [facility] Address [address] [facility] [place] [address] Care Team Providers Care Liquor Department Manager Name Role Phone Shawn Barber MD Unavailable [phone] Shawn Barber MD Primary Care Provider Wednesday, Randee AUTO DAMAGE ADJUSTER Unavailable [phone] Becca Campos SHIP'S OFFICER Unavailable Hilary Frank RN Unavailable Kaylen Moore AUTO DAMAGE ADJUSTER Unavailable Encounter Details Date Type Department Care Team (Late st Contact Info) Description 03/09/2023 Abstract [facility] [place] [facility] 112 [facility] 110 [place] [address] Shawn Barber MD 112 [facility] 110 [place], [place] [id number] Social History Tobacco Use Types Packs/Day Years [...] often do you attend chur ch or amish services? Never 01/29/2023 Do you belong to [...] 11/25/2022 [facility] - [...] [facility] [place] [facility] [address] [facility] 110 [place] [address] Shawn Barber MD [address] [facility] 110 [place] [address] 03/15/2025 3:10 PM EST Office Visit [facility] [address] [place] [address] Colt Mendieta, DPM 3006 [facility] 5 [place] [address] documented as of this encounter Visit Diagnoses Not on filedocumented in this encounter Care Teams Liquor Department Manager Relationship Specialty Start Date End Date Shawn Barber MD [address] [place] [address] PCP - ACO Reach 09/24/22 Shawn Barber MD [address] [facility] 110 [place] [address] PCP - General Internal Medicine 10/22/22WednesdayRandee LPN [address] [place] [address] Licensed Practical Nurse Family Medicine 12/29/22 06/09/24 Becca Campos, SHIP'S OFFICER [address] [place] [address] Aircraft Communicator Family Medicine 12/29/22 08/24/24 Hilary Frank, RN [address] [place] [address] Licensed Practical Nurse Family Medicine 06/09/24 07/21/24 Kaylen Moore LPN [address] [place] [address] 07/21/24 documented as of this encounter
--- OUTSIDE RECORDS SUMMARY | 2025-01-30 09:53 | XMS_ITS | Encounter Summary ---
Author Organization [facility] Address [address] [facility] [place] [address] Care Team Providers Care Mixer Pigment Name Role Phone Shawn Barber MD Unavailable [phone] Shawn Barber MD Primary Care Provider Wednesday, Randee FACTORY FOCUS TECHNICIAN Unavailable [phone] Becca Campos STUD DRIVER Unavailable [phone] Hilary Frank RN Unavailable [phone] Kaylen Moore FACTORY FOCUS TECHNICIAN Unavailable Encounter Details Date Type Department Care Team (Late st Contact Info) Description 04/18/2024 Abstract [facility] [place] [facility] 112 [address] [facility] 110 [place] [address] Shawn Barber MD 112 [facility] 110 [place], [place] [address] Social History Tobacco Use Types Packs/Day Years [...] attend chur ch or scientologist services? Never 12/06/2023 Do you belong to [...] Patient Health Questionnaire-2 Score 1 11/25/2022 [facility] of Occupat ional Health - [...] [address] [place] [address] Shawn Barber MD [address] [place] [address] 03/15/2025 3:10 PM EST Office Visit [facility] [address] [place] [address] Colt Mendieta, DPM 3006 [facility] 5 [place] [address] documented as of this encounter Visit Diagnoses Not on filedocumented in this encounter Care Teams Mixer Pigment Relationship Specialty Start Date End Date Shawn Barber MD [address] [place] [address] PCP - ACO Reach 09/24/22 Shawn Barber MD [address] [place] [place] [address] PCP - General Internal Medicine 10/22/22WednesdayRandee LPN [address] [place] [address] Licensed Practical Nurse Family Medicine 12/29/22 06/09/24 Becca Campos LSW [address] [place] [address] Transport Aircrewman Family Medicine 12/29/22 08/24/24 Hilary Frank, RN [address] [place] [address] Licensed Practical Nurse Family Medicine 06/09/24 07/21/24 Kaylen Moore LPN [address] [place] [address] 07/21/24 documented as of this encounter
--- OUTSIDE RECORDS SUMMARY | 2025-01-30 09:53 | XMS_ITS | Encounter Summary ---
Author Organization [facility] Address [address] [facility] [place] [address] Care Team Providers Care Financial Writer Name Role Phone Shawn Barber MD Unavailable [phone] Shawn Barber MD Primary Care Provider [phone] Kaylen Moore LPN Unavailable Encounter Details Date Type Department Care Team (Late st Contact Info) Description 12/19/2024 Abstract [facility] [place] [facility] [address] [facility] 110 [place] [address] Shawn Barber MD 112 [address] [facility] 110 [place], [place] [address] Social History Tobacco Use Types Packs/Day Years [...] How often do you attend chur or jainism services? Never 12/06/2023 Do you belong to [...] Recorded Patient Health Questionnaire-2 Score 0 2024 [facility] [place] of Occupat ional Health - Occupational Stress [...] time in the past 12 m [facility], were you homeless or living in a half-way (including now)? No 12/06/2023 Comments Unknown Sex [...] Visit [facility] [place] [facility] [address] [facility] 110 [place] [address] Shawn Barber MD [address] [place] [address] 03/15/2025 3:10 PM EST Office Visit [facility] [address] [facility] 120 [place] [address] Colt Mendieta, DPM 3006 [facility] 5 [place] [address] documented as of this encounter Visit Diagnoses Not on filedocumented in this encounter Care Teams Financial Writer Relationship Specialty Start Date End Date Shawn Barber MD [address] [facility] 110 [place] [address] PCP - ACO Reach 09/24/22 Shawn Barber MD [address] [facility] 110 [place] [address] PCP - General Internal Medicine 10/22/22 Kaylen Moore LPN [address] [facility] 110 [place] [address] 07/21/24 documented as of this encounter
--- OUTSIDE RECORDS SUMMARY | 2025-01-30 09:53 | XMS_ITS | Encounter Summary ---
Author Organization [facility] Address [address] [facility] [place] [address] Care Team Providers Care Retail Warehouse Supervisor Name Role Phone Shawn Barber MD Unavailable [phone] Shawn Barber MD Primary Care Provider Wednesday, Randee ELEVATOR INSTALLER APPRENTICE Unavailable [phone] Becca Campos FIELD MECHANIC/SITE LEAD Unavailable Hialry Frank RN Unavailable Kaylen Moore ELEVATOR INSTALLER APPRENTICE Unavailable Encounter Details Date Type Department Care Team (Late st Contact Info) Description 03/15/2023 Abstract [facility] [place] [facility] 112 [facility] 110 [place] [address] Shawn Barber MD 112 [facility] 110 [place], [place] [address] Social History Tobacco Use Types Packs/Day Years [...] Recorded Patient Health Questionnaire-2 Score 1 11/25/2022 [facility] - [...] Office Visit [facility] [place] [facility] [address] [facility] 110 [place] [address] Shawn Barber MD [address] [facility] 110 [place] [address] 03/15/2025 3:10 PM EST Office Visit [facility] [address] [place] [address] Colt Mendieta, DPM 3006 [facility] 5 [place] [address] documented as of this encounter Visit Diagnoses Not on filedocumented in this encounter Care Teams Retail Warehouse Supervisor Relationship Specialty Start Date End Date Shawn Barber MD [address] [place] [address] PCP - ACO Reach 09/24/22 Shawn Barber MD [address] [facility] 110 [place] [address] PCP - General Internal Medicine 10/22/22WednesdayRandee LPN [address] [place] [address] Licensed Practical Nurse Family Medicine 12/29/22 06/09/24 Becca Campos, FIELD MECHANIC/SITE LEAD [address] [place] [address] Modeler Family Medicine 12/29/22 08/24/24 Hilary Frank, RN [address] [place] [address] Licensed Practical Nurse Family Medicine 06/09/24 07/21/24 Kaylen Moore LPN [address] [place] [address] 07/21/24 documented as of this encounter
--- OUTSIDE RECORDS SUMMARY | 2025-01-30 09:53 | XMS_ITS | Encounter Summary ---
Author Organization [facility] Address [address] [facility] [place] [address] Care Team Providers Care Clinical Program Coordinator Name Role Phone Shawn Barber MD Unavailable [phone] Shawn Barber MD Primary Care Provider [phone] Kaylen Moore LPN Unavailable Encounter Details Date Type Department Care Team (Late st Contact Info) Description 12/14/2024 Abstract [facility] [place] [facility] [address] [facility] 110 [place] [address] Shawn Barber MD 112 [address] [facility] 110 [place], [place] [address] Social History Tobacco Use Types Packs/Day Years [...] Recorded Patient Health Questionnaire-2 Score 0 2024 [facility] [place] of Occupat ional Health - Occupational Stress [...] Visit [facility] [place] [facility] [address] [facility] 110 [place] [address] Shawn Barber MD [address] [place] [address] 03/15/2025 3:10 PM EST Office Visit [facility] [address] [facility] 120 [place] [address] Colt Mendieta, DPM 3006 [facility] 5 [place] [address] documented as of this encounter Visit Diagnoses Not on filedocumented in this encounter Care Teams Clinical Program Coordinator Relationship Specialty Start Date End Date Shawn Barber MD [address] [facility] 110 [place] [address] PCP - ACO Reach 09/24/22 Shawn Barber MD [address] [facility] 110 [place] [address] PCP - General Internal Medicine 10/22/22 Kaylen Moore LPN [address] [facility] 110 [place] [address] 07/21/24 documented as of this encounter
--- OUTSIDE RECORDS SUMMARY | 2025-01-30 09:53 | XMS_ITS | Encounter Summary ---
Author Organization [facility] Address [address] [facility] [place] [address] Care Team Providers Care Informatica Name Role Phone Shawn Barber MD Unavailable [phone] Shawn Barber MD Primary Care Provider [phone] Kaylen Moore LPN Unavailable Encounter Details Date Type Department Care Team (Late st Contact Info) Description 12/19/2024 Abstract [facility] [place] [facility] [address] [facility] 110 [place] [address] Shawn Barber MD [address] [facility] 110 [place], [place] [address] Social History Tobacco Use Types Packs/Day Years [...] How often do you attend chur or anglican services? Never 12/06/2023 Do you [...] Recorded Patient Health Questionnaire-2 Score 0 2024 [facility] [place] of Occupat ional Health - Occupational Stress [...] were you homeless or living in a skilled nursing (including now)? No 12/06/2023 Comments Unknown Sex [...] [facility] 110 [place] [address] Shawn Barber MD [address] [place] [address] 03/15/2025 3:10 PM EST Office Visit [facility] [address] [facility] [address] [place] [address] Colt Mendieta, DPM 3006 [facility] 5 [place] [address] documented as of this encounter Visit Diagnoses Not on filedocumented in this encounter Care Teams Informatica Relationship Specialty Start Date End Date Shawn Barber MD [address] [facility] 110 [place] [address] PCP - ACO Reach 09/24/22 Shawn Barber MD [address] [facility] 110 [place] [address] PCP - General Internal Medicine 10/22/22 Kaylen Moore LPN [address] [facility] 110 [place] [address] 07/21/24 documented as of this encounter
--- OUTSIDE RECORDS SUMMARY | 2025-01-30 09:54 | XMS_ITS | Encounter Summary ---
Author Organization [facility] Address [address] [facility] [place] [address] Care Team Providers Care Manufacturing Quality Engineer Name Role Phone Shawn Barber MD Unavailable [phone] Shawn Barber MD Primary Care Provider [phone] Wednesday, Randee GROUND CREW SUPERVISOR Unavailable [phone] Becca Campos REGULATORY AFFAIRS MANAGER Unavailable Hilary Frank RN Unavailable Kaylen Moore GROUND CREW SUPERVISOR Unavailable Encounter Details Date Type Department Care Team (Late st Contact Info) Description 12/15/2022 Abstract [facility] [place] [facility] [address] [facility] 110 [place] [address] Shawn Barber MD 112 [facility] 110 [place], [place] [address] Social History Tobacco Use Types Packs/Day Years [...] [address] [place] [address] Shawn Barber MD [address] [place] [address] 03/15/2025 3:10 PM EST Office Visit [facility] [address] [place] [address] Colt Mendieta, DPM 3006 [facility] 5 [place] [address] documented as of this encounter Visit Diagnoses Not on filedocumented in this encounter Care Teams Manufacturing Quality Engineer Relationship Specialty Start Date End Date Shawn Barber MD [address] [place] [address] PCP - ACO Reach 09/24/22 Shawn Barber MD [address] [place] [address] PCP - General Internal Medicine 10/22/22WednesdayRandee LPN [address] [place] [address] Licensed Practical Nurse Family Medicine 12/29/22 06/09/24 Becca Campos, REGULATORY AFFAIRS MANAGER [address] [place] [address] [facility] Family Medicine 12/29/22 08/24/24 Hilary Frank, RN [address] [place] [address] Licensed Practical Nurse Family Medicine 06/09/24 07/21/24 Kaylen Moore LPN [address] [place] [address] 07/21/24 documented as of this encounter
--- OUTSIDE RECORDS SUMMARY | 2025-01-30 09:54 | XMS_ITS | Encounter Summary ---
Author Organization [facility] Address [address] [facility] [place] [address] Care Team Providers Care Getter Welder Name Role Phone Shawn Barber MD Unavailable [phone] Shawn Barber MD Primary Care Provider [phone] Kaylen Moore LPN Unavailable Encounter Details Date Type Department Care Team (Late st Contact Info) Description 11/30/2024 Abstract [facility] [place] [facility] [address] [facility] 110 [place] [address] Shawn Barber MD [address] [facility] 110 [place], [place] [address] Social History Tobacco Use Types Packs/Day Years [...] How often do you attend chur or mormon services? Never 12/06/2023 Do you [...] Date Recorded Patient Health Questionnaire-2 Score 0 11/21/2024 [facility] [place] of Occupat ional Health - Occupational Stress [...] Visit [facility] [place] [facility] [address] [facility] 110 [place] [address] Shawn Barber MD [address] [place] [address] 03/15/2025 3:10 PM EST Office Visit [facility] [address] [facility] [address] [place] [address] Colt Mendieta, DPM 3006 [facility] 5 [place] [address] documented as of this encounter Visit Diagnoses Not on filedocumented in this encounter Care Teams Getter Welder Relationship Specialty Start Date End Date Shawn Barber MD [address] [facility] 110 [place] [address] PCP - ACO Reach 09/24/22 Shawn Barber MD [address] [facility] 110 [place] [address] PCP - General Internal Medicine 10/22/22 Kaylen Moore LPN [address] [facility] 110 [place] [address] 07/21/24 documented as of this encounter
--- OUTSIDE RECORDS SUMMARY | 2025-01-30 09:54 | XMS_ITS | Encounter Summary ---
Author Organization [facility] Address [address] [facility] [place] [address] Care Team Providers Care Spear Fisher Name Role Phone Shawn Barber MD Unavailable [phone] Shawn Barber MD Primary Care Provider Wednesday, Randee BRANCH ASSISTANT Unavailable [phone] Becca Campos AGRICULTURAL EQUIPMENT OPERATOR Unavailable Hilary Frank RN Unavailable [phone] Kaylen Moore BRANCH ASSISTANT Unavailable Encounter Details Date Type Department Care Team (Late st Contact Info) Description 02/22/2023 Abstract [facility] [place] [facility] 112 [facility] 110 [place] [address] Shawn Barber MD 112 [facility] 110 [place], [place] [address] Social History Tobacco Use Types Packs/Day Years [...] any clubs o r organizations such as oriental orthodox groups, unions, fraternal or athletic groups, [...] Recorded Patient Health Questionnaire-2 Score 1 11/25/2022 [facility] Health - Occupational Stress Questionnaire [...] Office Visit [facility] [place] [facility] [address] [facility] 110 [place] [address] Shawn Barber MD [address] [facility] 110 [place] [address] 03/15/2025 3:10 PM EST Office Visit [facility] [address] [place] [address] Colt Mendieta, DPM 3006 [facility] 5 [place] [address] documented as of this encounter Visit Diagnoses Not on filedocumented in this encounter Care Teams Spear Fisher Relationship Specialty Start Date End Date Shawn Barber MD [address] [place] [address] PCP - ACO Reach 09/24/22 Shawn Barber MD [address] [facility] 110 [place] [address] PCP - General Internal Medicine 10/22/22WednesdayRandee LPN [address] [place] [address] Licensed Practical Nurse Family Medicine 12/29/22 06/09/24 Becca Campos, AGRICULTURAL EQUIPMENT OPERATOR [address] [place] [address] Loss Prevention Supervisor Family Medicine 12/29/22 08/24/24 Hilary Frank, RN [address] [place] [address] Licensed Practical Nurse Family Medicine 06/09/24 07/21/24 Kaylen Moore LPN [address] [place] [address] 07/21/24 documented as of this encounter
--- OUTSIDE RECORDS SUMMARY | 2025-01-30 09:54 | XMS_ITS | Encounter Summary ---
Author Organization [facility] Address [address] [facility] [place] [address] Care Team Providers Care Director Of Enrollment Name Role Phone Shawn Barber MD Unavailable [phone] Shawn Barber MD Primary Care Provider Wednesday, Randee SALON SHAMPOO ASSISTANT Unavailable [phone] Becca Campos FOOD TESTER Unavailable Hilary Frank RN Unavailable Kaylen Moore SALON SHAMPOO ASSISTANT Unavailable Encounter Details Date Type Department Care Team (Late st Contact Info) Description 04/16/2023 Abstract [facility] [place] [facility] 112 [facility] 110 [place] [address] Shawn Barber MD 112 [facility] 110 [place], [place] [address] Social History Tobacco Use Types Packs/Day Years [...] Recorded Patient Health Questionnaire-2 Score 1 11/25/2022 [facility] - Occupational Stress Questionnaire [...] -2 Score 0 04/19/2023 1:00 PM EST Ginger Jose LP N documented as of this encounter Plan of Treatment Upcoming Encounters Date Type Department Care Team (Late st Contact Info) Description 02/05/2025 2:00 PM EDT Office Visit [facility] [place] [facility] [address] [place] [address] Shawn Barber MD [address] [place] [address] 03/15/2025 3:10 PM EST Office Visit [facility] [address] [place] [address] Colt Mendieta, DPChris 3006 [facility] 5 [place] [address] documented as of this encounter Visit Diagnoses Not on filedocumented in this encounter Care Teams Director Of Enrollment Relationship Specialty Start Date End Date Shawn Barber MD [address] [place] [address] PCP - ACO Reach 09/24/22 Shawn Barber MD [address] [place] [address] PCP - General Internal Medicine 10/22/22WednesdayRandee LPN [address] [place] [address] Licensed Practical Nurse Family Medicine 12/29/22 06/09/24 Becca Campos, FOOD TESTER [address] [place] [address] Retail Solar Advisor Family Medicine 12/29/22 08/24/24 Hilary Frank, RN [address] [place] [address] Licensed Practical Nurse Family Medicine 06/09/24 07/21/24 Kaylen Moore LPN 112 [facility] 110 [place] [address] 07/21/24 documented as of this encounter
--- OUTSIDE RECORDS SUMMARY | 2025-01-30 09:54 | XMS_ITS | Encounter Summary ---
Author Organization [facility] Address [address] [facility] [place] [address] Care Team Providers Care Certified Nursing Assistant Name Role Phone Shawn Barebr MD Unavailable [phone] Shawn Barber MD Primary Care Provider [phone] Wednesday, Randee SLOOP CAPTAIN Unavailable [phone] Becca Campos EMBROIDERY WORKER Unavailable Hilary Frank RN Unavailable Kaylen Moore SLOOP CAPTAIN Unavailable Encounter Details Date Type Department Care Team (Late st Contact Info) Description 12/23/2022 Orders Only [facility] [place] [facility] [address] [facility] 110 [place] [id number] A, Unknown Practice [address] [place], [place] [phone] Social History Tobacco Use Types Packs/Day Years [...] Medince [address] [place] [address] Shawn Barber MD [address] [place] [address] 03/15/2025 3:10 PM EST Office Visit [facility] [address] [place] [address] Colt Mendieta, DPM 3006 [facility] 5 [place] [address] documented as of this encounter Procedures Procedure Name Priority Date/Time Associated Diagnosis Comments SCANNED LABS Routine 12/19/2022 7:48 AM EDT documented in this encounter Results * SCANNED LABS (12/19/2022 7:48 AM EDT) us Unknown Practice A LAB CHG PERFORMABLES Final Re sult documented in this encounter Visit Diagnoses Not on filedocumented in this encounter Care Teams Certified Nursing Assistant Relationship Specialty Start Date End Date Shawn Barber MD [address] [place] [address] PCP - ACO Reach 09/24/22 Shawn Barber MD [address] [place] [address] PCP - General Internal Medicine 10/22/22WednesdayRandee LPN [address] [place] [address] Licensed Practical Nurse Family Medicine 12/29/22 06/09/24 Becca Campos, EMBROIDERY WORKER [address] [place] [address] Cardiac Technologist Family Medicine 12/29/22 08/24/24 Hilary Frank, RN [address] [place] [address] Licensed Practical Nurse Family Medicine 06/09/24 07/21/24 Kaylen Moore LPN [address] [address] 07/21/24 documented as of this encounter
--- OUTSIDE RECORDS SUMMARY | 2025-01-30 09:54 | XMS_ITS | Encounter Summary ---
Author Organization [facility] Address [address] [place] [address] Care Team Providers Care Nail Welter Name Role Phone Shawn Barber MD Unavailable [phone] Shawn Barber MD Primary Care Provider [phone] Kaylen Moore LPN Unavailable Encounter Details Date Type Department Care Team (Late st Contact Info) Description 11/22/2024 Abstract [facility] [address] [place] [address] Kaylen Moore LPN [address] [place] [address] Social History Tobacco Use Types [...] Recorded Patient Health Questionnaire-2 Score 0 11/21/2024 [facility] [place] of Occupat ional Health - Occupational Stress [...] time in the past 12 m [facility], were you homeless or living in [...] EDT Office Visit [facility] [place] [facility] 112 [facility] 110 [place] [address] Shawn Barber MD [address] [facility] 110 [place] [address] 03/15/2025 3:10 PM EST Office Visit [facility] [address] [facility] [address] [place] [phone] Colt Mendieta, DPM 3006 [facility] 5 [place] [address] documented as of this encounter Visit Diagnoses Not on filedocumented in this encounter Care Teams Nail Welter Relationship Specialty Start Date End Date Shawn Barber MD [address] [facility] 110 [place] [address] PCP - ACO Reach 09/24/22 Shawn Barber MD [address] [facility] 110 [place] [address] PCP - General Internal Medicine 10/22/22 Kaylen Moore LPN [address] [facility] [address] [place] [address] 07/21/24 documented as of this encounter
--- OUTSIDE RECORDS SUMMARY | 2025-01-30 09:54 | XMS_ITS | Encounter Summary ---
Author Organization [facility] Address [address] [facility] [place] [address] Care Team Providers Care Utilization Coordinator Name Role Phone Shawn Barber MD Unavailable [phone] Shawn Barber MD Primary Care Provider [phone] Kaylen Moore LPN Unavailable Encounter Details Date Type Department Care Team (Late st Contact Info) Description 11/30/2024 Abstract [facility] [place] [facility] [address] [facility] 110 [place] [phone] Shawn Barber MD [address] [facility] 110 [place], [place] [id number] Social History Tobacco Use Types Packs/Day Years [...] Recorded Patient Health Questionnaire-2 Score 0 11/21/2024 [facility] [place] of Occupat ional Health - Occupational [...] Visit [facility] [place] [facility] [address] [facility] 110 [place] [address] Shawn Barber MD [address] [place] [address] 03/15/2025 3:10 PM EST Office Visit [facility] [address] [facility] 120 [place] [phone] Colt Mendieta, DPM [facility] 5 [place] [address] documented as of this encounter Visit Diagnoses Not on filedocumented in this encounter Care Teams Utilization Coordinator Relationship Specialty Start Date End Date Shawn Barber MD [address] [facility] 110 [place] [address] PCP - ACO Reach 09/24/22 Shawn Barber MD [address] [facility] 110 [place] [address] PCP - General Internal Medicine 10/22/22 Kaylen Moore LPN [address] [facility] 110 [place] [address] 07/21/24 documented as of this encounter
--- OUTSIDE RECORDS SUMMARY | 2025-01-30 09:54 | XMS_ITS | Encounter Summary ---
Author Organization [facility] Address [address] [facility] [place] [address] Care Team Providers Care Linux Network Administrator Name Role Phone Shawn Barber MD Unavailable [phone] Shawn Barber MD Primary Care Provider [phone] Wednesday, Randee FLOOR TRADER Unavailable [phone] Becca Campos WOMEN'S STUDIES LECTURER Unavailable Hilary Frank RN Unavailable Kaylen Moore FLOOR TRADER Unavailable Encounter Details Date Type Department Care Team (Late st Contact Info) Description 01/05/2023 Abstract [facility] [place] [facility] [address] [facility] 110 [place] [address] Shawn Barber MD 112 [facility] 110 [place], [place] [id number] Social History Tobacco Use Types Packs/Day Years [...] [address] [place] [address] Shawn Barber MD [address] [place] [address] 03/15/2025 3:10 PM EST Office Visit [facility] [address] [place] [address] Colt Mendieta, DPM 3006 [facility] 5 [place] [address] documented as of this encounter Visit Diagnoses Not on filedocumented in this encounter Care Teams Linux Network Administrator Relationship Specialty Start Date End Date Shawn Barber MD [address] [place] [address] PCP - ACO Reach 09/24/22 Shawn Barber MD [address] [place] [address] PCP - General Internal Medicine 10/22/22WednesdayRandee LPN [address] [place] [address] Licensed Practical Nurse Family Medicine 12/29/22 06/09/24 Becca Campos, WOMEN'S STUDIES LECTURER [address] [place] [address] Mold Clamper Family Medicine 12/29/22 08/24/24 Hilary Frank, RN [address] [place] [address] Licensed Practical Nurse Family Medicine 06/09/24 07/21/24 Kaylen Moore LPN [address] [place] [address] 07/21/24 documented as of this encounter
--- OUTSIDE RECORDS SUMMARY | 2025-01-30 09:54 | XMS_ITS | Encounter Summary ---
Author Organization [facility] Address [address] [facility] [place] [address] Care Team Providers Care Electric Range Assembler Name Role Phone Shawn Barber MD Unavailable [phone] Shawn Barber MD Primary Care Provider Wednesday, Randee HASSOCK MAKER Unavailable [phone] Becca Campos AIRCRAFT MAINTENANCE MANAGER Unavailable [phone] Hilary Frank RN Unavailable Kaylen Moore HASSOCK MAKER Unavailable Encounter Details Date Type Department Care Team (Late st Contact Info) Description 12/23/2022 Abstract [facility] [place] [facility] [address] [facility] 110 [place] [address] Shawn Barber MD 112 [facility] 110 [place], [place] [address] Social History Tobacco Use Types Packs/Day Years [...] [address] [place] [address] Shawn Barber MD [address] [place] [address] 03/15/2025 3:10 PM EST Office Visit [facility] [address] [place] [address] Colt Mendieta, DPM 3006 [facility] 5 [place] [address] documented as of this encounter Visit Diagnoses Not on filedocumented in this encounter Care Teams Electric Range Assembler Relationship Specialty Start Date End Date Shawn Barber MD [address] [place] [address] PCP - ACO Reach 09/24/22 Shawn Barber MD [address] [place] [address] PCP - General Internal Medicine 10/22/22WednesdayRandee LPN [address] [place] [address] Licensed Practical Nurse Family Medicine 12/29/22 06/09/24 Becca Campos, AIRCRAFT MAINTENANCE MANAGER [address] [place] [address] Wireworker Supervisor Family Medicine 12/29/22 08/24/24 Hilary Frank, RN [address] [place] [address] Licensed Practical Nurse Family Medicine 06/09/24 07/21/24 Kaylen Moore LPN [address] [place] [address] 07/21/24 documented as of this encounter
--- OUTSIDE RECORDS SUMMARY | 2025-01-30 09:54 | XMS_ITS | Encounter Summary ---
Author Organization [facility] Address [address] [facility] [place] [address] Care Team Providers Care Care Process Manager Name Role Phone Shawn Barber MD Unavailable [phone] Shawn Barber MD Primary Care Provider Wednesday, Randee TUBE MOLDER FIBERGLASS Unavailable [phone] Becca Campos MEAT CARRIER Unavailable Hilary Frank RN Unavailable Kaylen Moore TUBE MOLDER FIBERGLASS Unavailable Encounter Details Date Type Department Care Team (Late st Contact Info) Description 04/16/2023 Abstract [facility] [place] [facility] 112 [facility] 110 [place] [address] Shawn Barber MD 112 [facility] 110 [place], [place] [id number] Social History Tobacco Use Types Packs/Day Years [...] often do you attend chur ch or anabaptism services? Never 01/29/2023 Do you belong to [...] 1 11/25/2022 [facility] - Occupational Stress Questionnaire [...] [address] [place] [address] Shawn Barber MD [address] [place] [address] 03/15/2025 3:10 PM EST Office Visit [facility] [address] [place] [address] Colt Mendieta, DPChris 3006 [facility] 5 [place] [address] documented as of this encounter Visit Diagnoses Not on filedocumented in this encounter Care Teams Care Process Manager Relationship Specialty Start Date End Date Shawn Barber MD [address] [place] [address] PCP - ACO Reach 09/24/22 Shawn Barber MD [address] [place] [address] PCP - General Internal Medicine 10/22/22WednesdayRandee LPN [address] [place] [address] Licensed Practical Nurse Family Medicine 12/29/22 06/09/24 Becca Campos, MEAT CARRIER [address] [place] [address] Business Relationship Manager Family Medicine 12/29/22 08/24/24 Hilary Frank, RN [address] [place] [address] Licensed Practical Nurse Family Medicine 06/09/24 07/21/24 Kaylen Moore LPN 112 [facility] 110 [place] [address] 07/21/24 documented as of this encounter
--- OUTSIDE RECORDS SUMMARY | 2025-01-30 09:54 | XMS_ITS | Encounter Summary ---
Author Organization [facility] Address [address] [facility] [place] [address] Care Team Providers Care Electrician Yard Name Role Phone Shawn Barber MD Unavailable [phone] Shawn Barber MD Primary Care Provider Wednesday, Randee ANIMAL TRAINER SUPERVISOR Unavailable [phone] Becca Campos HOST HOSTESS Unavailable Hilary Frank RN Unavailable [phone] Kaylen Moore ANIMAL TRAINER SUPERVISOR Unavailable Encounter Details Date Type Department Care Team (Late st Contact Info) Description 01/28/2023 Abstract [facility] [place] [facility] 112 [facility] 110 [place] [address] Shawn Barber MD 112 [facility] 110 [place] [address] Social History Tobacco Use Types [...] Score 1 11/25/2022 [facility] [...] one occasion? Never 01/29/2023 12:32 PM EDT LaureanoRandee bonilla L PN documented as of this encounter Plan of Treatment Upcoming Encounters Date Type Department Care Team (Late st Contact Info) Description 02/05/2025 2:00 PM EDT Office Visit [facility] [place] [facility] [address] [place] [address] Shawn Barber MD [address] [place] [address] 03/15/2025 3:10 PM EST Office Visit [facility] [address] [place] [address] Colt Mendieta, DPM 3006 [facility] 5 [place] [address] documented as of this encounter Visit Diagnoses Not on filedocumented in this encounter Care Teams Electrician Yard Relationship Specialty Start Date End Date Shawn Barber MD [address] [place] [address] PCP - ACO Reach 09/24/22 Shawn Barber MD [address] [place] [address] PCP - General Internal Medicine 10/22/22 Randee Tinsley LPN [address] [place] [address] Licensed Practical Nurse Family Medicine 12/29/22 06/09/24 Becca Campos LSW [address] [place] [address] Jukebox Route Driver Family Medicine 12/29/22 08/24/24 Hilary Frank, RN [address] [place] [address] Licensed Practical Nurse Family Medicine 06/09/24 07/21/24 Kaylen Moore LPN [address] [address] 07/21/24 documented as of this encounter
--- OUTSIDE RECORDS SUMMARY | 2025-01-30 09:54 | XMS_ITS | Encounter Summary ---
Author Organization [facility] Address [address] [facility] [place] [address] Care Team Providers Care Social Worker School Name Role Phone Shawn Barber MD Unavailable [phone] Shawn Barber MD Primary Care Provider [phone] Wednesday, Randee ACUTE COORDINATOR Unavailable [phone] Becca Campos MANAGER DISCOVERY Unavailable Hilary Frank RN Unavailable Kaylen Moore ACUTE COORDINATOR Unavailable Encounter Details Date Type Department Care Team (Late st Contact Info) Description 2022 Abstract [facility] [place] [facility] [address] [facility] 110 [place] [address] Shawn Barber MD 112 [facility] 110 [place], [place] [id number] Social History Tobacco Use Types Packs/Day Years [...] [address] [place] [address] Shawn Barber MD [address] [place] [address] 03/15/2025 3:10 PM EST Office Visit [facility] [address] [place] [address] Colt Mendieta, DPM 3006 [facility] 5 [place] [address] documented as of this encounter Visit Diagnoses Not on filedocumented in this encounter Care Teams Social Worker School Relationship Specialty Start Date End Date Shawn Barber MD [address] [place] [address] PCP - ACO Reach 09/24/22 Shawn Barber MD [address] [place] [address] PCP - General Internal Medicine 10/22/22WednesdayRandee LPN [address] [place] [address] Licensed Practical Nurse Family Medicine 12/29/22 06/09/24 Becca Campos, MANAGER DISCOVERY [address] [place] [address] V Belt Coverer Family Medicine 12/29/22 08/24/24 Hilary Frank, RN [address] [place] [address] Licensed Practical Nurse Family Medicine 06/09/24 07/21/24 Kaylen Moore LPN [address] [place] [address] 07/21/24 documented as of this encounter
--- OUTSIDE RECORDS SUMMARY | 2025-01-30 09:54 | XMS_ITS | Encounter Summary ---
Author Organization [facility] Address [address] [facility] [place] [address] Care Team Providers Care Recyclable Materials Collector Name Role Phone Shawn Barber MD Unavailable [phone] Shawn Barber MD Primary Care Provider [phone] Wednesday, Randee QUALITY ASSURANCE ADVISOR Unavailable [phone] Becca Campos HEALTH COORDINATOR Unavailable Hilary Frank RN Unavailable Kaylen Moore QUALITY ASSURANCE ADVISOR Unavailable Encounter Details Date Type Department Care Team (Late st Contact Info) Description 01/26/2024 Abstract [facility] [place] [facility] [address] [facility] 110 [place] [address] Shawn Barber MD 112 [facility] 110 [place] [address] Social History Tobacco Use Types [...] often do you attend chur ch or methodist services? Never 12/06/2023 Do you belong to any clubs o r organizations such as yazdanism groups, unions, fraternal or athletic groups, or [...] 02/05/2025 2:00 PM EDT Office Visit [facility] [place] [facility] [address] [place] [address] Shawn Barber MD [address] [place] [address] 03/15/2025 3:10 PM EST Office Visit [facility] [address] [place] [address] Colt Mendieta, DPM 3006 [facility] 5 [place] [address] documented as of this encounter Visit Diagnoses Not on filedocumented in this encounter Care Teams Recyclable Materials Collector Relationship Specialty Start Date End Date Shawn Barber MD [address] [place] [address] PCP - ACO Reach 09/24/22 Shawn Barber MD [address] [place] [address] PCP - General Internal Medicine 10/22/22WednesdayRandee LPN [address] [place] [address] Licensed Practical Nurse Family Medicine 12/29/22 06/09/24 Becca Campos LSW [address] [place] [address] Chainstitch Pants Outseamer Family Medicine 12/29/22 08/24/24 Hilary Frank, RN [address] [place] [address] Licensed Practical Nurse Family Medicine 06/09/24 07/21/24 Kaylen Moore LPN [address] [place] [address] 07/21/24 documented as of this encounter
--- OUTSIDE RECORDS SUMMARY | 2025-01-30 09:54 | XMS_ITS | Encounter Summary ---
Author Organization [facility] Address [address] [facility] [place] [address] Care Team Providers Care Windows Server Architect Name Role Phone Shawn Barber MD Unavailable [phone] Shawn Barber MD Primary Care Provider [phone] Wednesday, Randee BEE WORKER Unavailable [phone] Becca Campos HEALTHCARE SOCIAL WORKER Unavailable Hilary Frank RN Unavailable Kaylen Moore BEE WORKER Unavailable Encounter Details Date Type Department Care Team (Late st Contact Info) Description 02/04/2023 Orders Only [facility] [place] [facility] [address] [place] [id number] A, Unknown Practice [address] [phone] Social History Tobacco Use Types Packs/Day Years [...] Visit [facility] [place] [facility] [address] [facility] 110 [place] [address] Shawn Barber MD [address] [place] [address] 03/15/2025 3:10 PM EST Office Visit [facility] [address] [place] [address] Colt Mendieta, DPChris 3006 [facility] 5 [place] [address] documented as of this encounter Procedures Procedure Name Priority Date/Time Associated Diagnosis Comments SCANNED LABS Routine 02/03/2023 1:29 PM EDT documented in this encounter Results * SCANNED LABS (02/03/2023 1:29 PM EDT) us Unknown Practice A LAB CHG PERFORMABLES Final Re sult documented in this encounter Visit Diagnoses Not on filedocumented in this encounter Care Teams Windows Server Architect Relationship Specialty Start Date End Date Shawn Barber MD [address] [facility] 110 [place] [address] PCP - ACO Reach 09/24/22 Shawn Barber MD [address] [place] [address] PCP - General Internal Medicine 10/22/22WednesdayRandee LPN [address] [place] [address] Licensed Practical Nurse Family Medicine 12/29/22 06/09/24 Becca Campos LSW [address] [place] [address] Workers Compensation Claims Analyst Family Medicine 12/29/22 08/24/24 Hilary Frank, RN [address] [place] [address] Licensed Practical Nurse Family Medicine 06/09/24 07/21/24 Kaylen Moore LPN [address] [place] [address] 07/21/24 documented as of this encounter
--- OUTSIDE RECORDS SUMMARY | 2025-01-30 09:54 | XMS_ITS | Encounter Summary ---
Author Organization [facility] Address [address] [facility] [place] [address] Care Team Providers Care Spare Parts Clerk Name Role Phone Shawn Barber MD Unavailable [phone] Shawn Barber MD Primary Care Provider Wednesday, Randee REGISTERED LAND SURVEYOR Unavailable [phone] Becca Campos GARBAGE TRUCK DRIVER Unavailable Hilary Frank RN Unavailable [phone] Kaylen Moore REGISTERED LAND SURVEYOR Unavailable Encounter Details Date Type Department Care Team (Late st Contact Info) Description 03/11/2023 Abstract [facility] [place] [facility] 112 [facility] 110 [place] [address] Shawn Barber MD 112 [facility] 110 [place], [place] [id number] Social History Tobacco Use Types Packs/Day Years [...] Patient Health Questionnaire-2 Score 1 11/25/2022 [facility] [...] Office Visit [facility] [place] [facility] [address] [facility] 110 [place] [address] Shawn Barber MD [address] [facility] 110 [place] [address] 03/15/2025 3:10 PM EST Office Visit [facility] [address] [place] [address] Colt Mendieta, DPM 3006 [facility] 5 [place] [address] documented as of this encounter Visit Diagnoses Not on filedocumented in this encounter Care Teams Spare Parts Clerk Relationship Specialty Start Date End Date Shawn Barber MD [address] [place] [address] PCP - ACO Reach 09/24/22 Shawn Barber MD [address] [facility] 110 [place] [address] PCP - General Internal Medicine 10/22/22WednesdayRandee LPN [address] [place] [address] Licensed Practical Nurse Family Medicine 12/29/22 06/09/24 Becca Campos, GARBAGE TRUCK DRIVER [address] [place] [address] Target Man Family Medicine 12/29/22 08/24/24 Hilary Frank, RN [address] [place] [address] Licensed Practical Nurse Family Medicine 06/09/24 07/21/24 Kaylen Moore LPN [address] [place] [address] 07/21/24 documented as of this encounter
--- OUTSIDE RECORDS SUMMARY | 2025-01-30 09:54 | XMS_ITS | Encounter Summary ---
Author Organization [facility] Address [address] [facility] [place] [address] Care Team Providers Care Dusting And Brushing Machine Operator Name Role Phone Shawn Barber MD Unavailable [phone] Shawn Barber MD Primary Care Provider Wednesday, Randee HEAD SULFIDE OPERATOR Unavailable [phone] Becca Campos TRAVEL INSURANCE AGENT Unavailable Hilary Frank RN Unavailable Kaylen Moore HEAD SULFIDE OPERATOR Unavailable Encounter Details Date Type Department Care Team (Late st Contact Info) Description 12/29/2022 Abstract [facility] [place] [facility] [address] [facility] 110 [place] [address] Shawn Barber MD 112 [facility] 110 [place], [place] [phone] Social History Tobacco Use Types Packs/Day Years [...] [address] [place] [address] Shawn Barber MD [address] [place] [address] 03/15/2025 3:10 PM EST Office Visit [facility] [address] [place] [address] Colt Mendieta, DPM 3006 [facility] 5 [place] [address] documented as of this encounter Visit Diagnoses Not on filedocumented in this encounter Care Teams Dusting And Brushing Machine Operator Relationship Specialty Start Date End Date Shawn Barber MD [address] [place] [address] PCP - ACO Reach 09/24/22 Shawn Barber MD [address] [place] [address] PCP - General Internal Medicine 10/22/22WednesdayRandee LPN [address] [place] [address] Licensed Practical Nurse Family Medicine 12/29/22 06/09/24 Becca Campos, TRAVEL INSURANCE AGENT [address] [place] [address] Airline Lounge Receptionist Family Medicine 12/29/22 08/24/24 Hilary Frank, RN [address] [place] [address] Licensed Practical Nurse Family Medicine 06/09/24 07/21/24 Kaylen Moore LPN [address] [place] [address] 07/21/24 documented as of this encounter
--- OUTSIDE RECORDS SUMMARY | 2025-01-30 09:54 | XMS_ITS | Encounter Summary ---
Author Organization [facility] Address [address] [facility] [place] [address] Care Team Providers Care Drill Sharpener Name Role Phone Shawn Barber MD Unavailable [phone] Shawn Barber MD Primary Care Provider [phone] Kaylen Moore LPN Unavailable Encounter Details Date Type Department Care Team (Late st Contact Info) Description 11/30/2024 Abstract [facility] [place] [facility] [address] [facility] 110 [place] [address] Shawn Barber MD [address] [facility] 110 [place], [place] [id number] Social History Tobacco Use Types Packs/Day Years [...] Recorded Patient Health Questionnaire-2 Score 0 11/21/2024 [facility] [place] of Occupat ional Health - Occupational Stress [...] any time in the past 12 m [facility], were you homeless or [...] Visit [facility] [place] [facility] [address] [facility] 110 [place] [address] Shawn Barber MD [address] [place] [address] [place] [address] 03/15/2025 3:10 PM EST Office Visit [facility] [address] [facility] 120 [place] [id number] Colt Mendieta, DPM 3006 [facility] 5 [place] [address] documented as of this encounter Visit Diagnoses Not on filedocumented in this encounter Care Teams Drill Sharpener Relationship Specialty Start Date End Date Shawn Barber MD [address] [facility] 110 [place] [address] PCP - ACO Reach 09/24/22 Shawn Barber MD [address] [facility] 110 [place] [address] PCP - General Internal Medicine 10/22/22 Kaylen Moore LPN [address] [facility] 110 [place] [address] 07/21/24 documented as of this encounter
--- OUTSIDE RECORDS SUMMARY | 2025-01-30 09:54 | XMS_ITS | Encounter Summary ---
Author Organization [facility] Address [address] [facility] [place] [address] Care Team Providers Care Grinding Mill Operator Name Role Phone Shawn Barber MD Unavailable [phone] Shawn Barber MD Primary Care Provider [phone] Wednesday, Randee TUGBOAT DISPATCHER Unavailable [phone] Becca Campos NUCLEAR FUELS RECLAMATION ENGINEER Unavailable [phone] Hilary Frank RN Unavailable Kaylen Moore TUGBOAT DISPATCHER Unavailable Encounter Details Date Type Department Care Team (Late st Contact Info) Description 12/22/2022 [facility] [place] [facility] [address] [facility] 110 [place] [id number] A, Unknown Practice [address] [place], [place] [id number] Social History Tobacco Use Types Packs/Day Years [...] Medince [address] [facility] [address] [place] [address] Shawn Barber MD [address] [place] [address] [place] [address] 03/15/2025 3:10 PM EST Office Visit [facility] [address] [facility] [address] [place] [address] Colt Mendieta, DPM 3006 [facility] 5 [place] [address] documented as of this encounter Procedures Procedure Name Priority Date/Time Associated Diagnosis Comments SCANNED LABS Routine 12/19/2022 7:39 AM EDT documented in this encounter Results * SCANNED LABS (12/19/2022 7:39 AM EDT) us Unknown Practice A LAB CHG PERFORMABLES Final Re sult documented in this encounter Visit Diagnoses Not on filedocumented in this encounter Care Teams Grinding Mill Operator Relationship Specialty Start Date End Date Shawn Barber MD [address] [facility] [address] [place] [address] PCP - ACO Reach 09/24/22 Shawn Barber MD [address] [facility] [address] [place] [address] PCP - General Internal Medicine 10/22/22WednesdayRandee LPN [address] [place] [address] Licensed Practical Nurse Family Medicine 12/29/22 06/09/24 Becca Campos, NUCLEAR FUELS RECLAMATION ENGINEER [address] [place] [address] Manager Application Development Family Medicine 12/29/22 08/24/24 Hilary Frank, RN [address] [place] [address] Licensed Practical Nurse Family Medicine 06/09/24 07/21/24 Kaylen Moore LPN [address] [address] 07/21/24 documented as of this encounter
--- OUTSIDE RECORDS SUMMARY | 2025-01-30 09:54 | XMS_ITS | Encounter Summary ---
Author Organization [facility] Address [address] [place] [facility] [place] [address] Care Team Providers Care Food Safety Specialist Name Role Phone Shawn Barber MD Unavailable [phone] Shawn Barber MD Primary Care Provider [phone] Wednesday, Randee TENNIS INSTRUCTOR Unavailable [phone] Becca Campos GRANITE CUTTER APPRENTICE Unavailable Hilary Frank RN Unavailable Kaylen Moore TENNIS INSTRUCTOR Unavailable Encounter Details Date Type Department Care Team (Late st Contact Info) Description 03/11/2023 Orders Only [facility] [place] [facility] [address] [facility] [place] [phone] A, Unknown Practice [address] [id number] Social History Tobacco Use Types Packs/Day Years [...] Recorded Patient Health Questionnaire-2 Score 1 11/25/2022 [facility] of Occupat ional Health [...] Visit [facility] [place] [facility] [address] [facility] 110 [place] [address] Shawn Barber MD [address] [place] [address] [place] [address] 03/15/2025 3:10 PM EST Office Visit [facility] [address] [facility] 120 [place] [address] Colt Mendieta, DEVI 3006 [facility] 5 [place] [address] documented as of this encounter Procedures Procedure Name Priority Date/Time Associated Diagnosis Comments ELECTROCARDIOGRAM REPORT Routine 023 12:48 PM EST documented in this encounter Results * Electrocardiogram Report (03/09/2023 12:48 PM EST) us Unknown Practice A IN CLINIC/BEDSIDE ORDERABLES Final Result documented in this encounter Visit Diagnoses Not on filedocumented in this encounter Care Teams Food Safety Specialist Relationship Specialty Start Date End Date Shawn Barber MD [address] [facility] 110 [place] [address] PCP - ACO Reach 09/24/22 Shawn Barber MD [address] [facility] 110 [place] [address] PCP - General Internal Medicine 10/22/22WednesdayRandee LPN [address] [facility] 110 [place] [address] Licensed Practical Nurse Family Medicine 12/29/22 06/09/24 Becca Campos, GRANITE CUTTER APPRENTICE [address] [place] [address] Cigarette Roller Family Medicine 12/29/22 08/24/24 Hilary Frank, RN [address] [place] [address] Licensed Practical Nurse Family Medicine 06/09/24 07/21/24 Kaylen Moore LPN [address] [facility] 110 [place] [address] 07/21/24 documented as of this encounter
--- OUTSIDE RECORDS SUMMARY | 2025-01-30 09:54 | XMS_ITS | Encounter Summary ---
Author Organization [facility] Address [address] [facility] [place] [address] Care Team Providers Care Manufacturing Area Manager Name Role Phone Shawn Barber MD Unavailable [phone] Shawn Barber MD Primary Care Provider [phone] Kaylen Moore LPN Unavailable Encounter Details Date Type Department Care Team (Late st Contact Info) Description 11/30/2024 Abstract [facility] [place] [facility] [address] [facility] 110 [place] [address] Shawn Barber MD [address] [facility] 110 [place], [place] [id number] Social History Tobacco Use Types Packs/Day Years [...] How often do you attend chur or muslim services? Never 12/06/2023 Do you belong to [...] Recorded Patient Health Questionnaire-2 Score 0 11/21/2024 [facility] [place] of Occupat ional Health - Occupational Stress [...] Visit [facility] [place] [facility] [address] [facility] 110 [place] [address] Shawn Barber MD [address] [place] [address] [place] [address] 03/15/2025 3:10 PM EST Office Visit [facility] [address] [facility] [address] [place] [address] Colt Mendieta, DPM 3006 [facility] 5 [place] [address] documented as of this encounter Visit Diagnoses Not on filedocumented in this encounter Care Teams Manufacturing Area Manager Relationship Specialty Start Date End Date Shawn Barber MD [address] [facility] 110 [place] [address] PCP - ACO Reach 09/24/22 Shawn Barber MD [address] [facility] 110 [place] [address] PCP - General Internal Medicine 10/22/22 Kaylen Moore LPN [address] [facility] 110 [place] [address] 07/21/24 documented as of this encounter
--- OUTSIDE RECORDS SUMMARY | 2025-01-30 09:54 | XMS_ITS | Encounter Summary ---
Author Organization [facility] Address [address] [facility] [place] [address] Care Team Providers Care Slat Pickler Name Role Phone Shawn Barber MD Unavailable [phone] Shawn Barber MD Primary Care Provider [phone] Kaylen Moore LPN Unavailable Encounter Details Date Type Department Care Team (Late st Contact Info) Description 11/30/2024 Abstract [facility] [place] [facility] [address] [facility] 110 [place] [address] Shawn Barber MD [address] [facility] 110 [place], [place] [id number] Social History Tobacco Use Types Packs/Day Years [...] How often do you attend chur or gnosticist services? Never 12/06/2023 Do you belong to any clubs o r organizations such as taoism groups, unions, fraternal or athletic groups, or [...] Recorded Patient Health Questionnaire-2 Score 0 11/21/2024 [employer] [place] of Occupat ional Health - Occupational Stress [...] Visit [facility] [place] [facility] [address] [facility] 110 [place] [address] Shawn Barber MD [address] [facility] [place] [address] 03/15/2025 3:10 PM EST Office Visit [facility] [address] [facility] 120 [place] [phone] Colt Mendieta, DPM 3006 [facility] 5 [place] [address] documented as of this encounter Visit Diagnoses Not on filedocumented in this encounter Care Teams Slat Pickler Relationship Specialty Start Date End Date Shawn Barber MD [address] [facility] 110 [place] [address] PCP - ACO Reach 09/24/22 Shawn Barber MD [address] [facility] 110 [place] [address] PCP - General Internal Medicine 10/22/22 Kaylen Moore LPN [address] [facility] 110 [place] [address] 07/21/24 documented as of this encounter
--- OUTSIDE RECORDS SUMMARY | 2025-01-30 09:54 | XMS_ITS | Encounter Summary ---
Author Organization [facility] Address [address] [facility] [place] [address] Care Team Providers Care Elastic Attacher Overlock Name Role Phone Shawn Barber MD Unavailable [phone] Shawn Barber MD Primary Care Provider [phone] Wednesday, Randee TECHNOLOGIST INFECTIOUS DISEASE Unavailable [phone] Becca Campos FIBERGLASS BONDING MACHINE TENDER Unavailable Hilary Frank RN Unavailable [phone] Kaylen Moore TECHNOLOGIST INFECTIOUS DISEASE Unavailable Encounter Details Date Type Department Care Team (Late st Contact Info) Description 04/20/2023 Abstract [facility] [place] [facility] [address] [facility] 110 [place] [address] Shawn Barber MD 112 [facility] 110 [place], [place] [phone] Social History Tobacco Use Types Packs/Day Years [...] Questionnaire-2 Score 1 11/25/2022 [facility] of Occupat ional Health - Occupational [...] EDT Office Visit [facility] [place] [facility] [address] [facility] 110 [place] [address] Shawn Barber MD 112 [facility] 110 [place] [address] 03/15/2025 3:10 PM EST Office Visit [facility] [address] [facility] [address] [place] [address] Colt Mendieta, DPChris 3006 [facility] 5 [place] [address] documented as of this encounter Visit Diagnoses Not on filedocumented in this encounter Care Teams Elastic Attacher Overlock Relationship Specialty Start Date End Date Shawn Barber MD [address] [facility] [place] [address] PCP - ACO Reach 09/24/22 Shawn Barber MD [address] [facility] 110 [place] [address] PCP - General Internal Medicine 10/22/22WednesdayRandee LPN [address] [place] [address] Licensed Practical Nurse Family Medicine 12/29/22 06/09/24 Becca Campos, FIBERGLASS BONDING MACHINE TENDER [address] [place] [address] [employer] Games Mechanic Family Medicine 12/29/22 08/24/24 Hilary Frank, RN [address] [place] [address] Licensed Practical Nurse Family Medicine 06/09/24 07/21/24 Kaylen Moore LPN [address] [facility] [place] [address] 07/21/24 documented as of this encounter
--- OUTSIDE RECORDS SUMMARY | 2025-01-30 09:54 | XMS_ITS | Encounter Summary ---
Author Organization [facility] Address [address] [facility] [place] [address] Care Team Providers Care Legal Billing Coordinator Name Role Phone Shawn Barber MD Unavailable [phone] Shawn Barber MD Primary Care Provider Wednesday, Randee RATE QUOTING OPERATOR Unavailable [phone] Becca Campos SUPERINTENDENT COMMISSARY Unavailable Hilary Frank RN Unavailable Kaylen Moore RATE QUOTING OPERATOR Unavailable Encounter Details Date Type Department Care Team (Late st Contact Info) Description 02/15/2024 Abstract [facility] [place] [facility] [address] [facility] 110 [place] [address] Shawn Barber MD 112 [facility] 110 [place], [place] [address] Social History Tobacco Use Types Packs/Day Years [...] Patient Health Questionnaire-2 Score 1 11/25/2022 [facility] of Occupat ional Health - [...] any time in the past [address] [facility], were you homeless or living [...] [address] [facility] [place] [address] Shawn Barber MD [address] [facility] [place] [address] 03/15/2025 3:10 PM EST Office Visit [facility] [address] [facility] [place] [address] Colt Mendieta, DPM 3006 [facility] 5 [place] [address] documented as of this encounter Visit Diagnoses Not on filedocumented in this encounter Care Teams Legal Billing Coordinator Relationship Specialty Start Date End Date Shawn Barber MD [address] [facility] [place] [address] PCP - ACO Reach 09/24/22 Shawn Barber MD [address] [facility] [address] [place] [address] PCP - General Internal Medicine 10/22/22WednesdayRandee LPN [address] [place] [address] Licensed Practical Nurse Family Medicine 12/29/22 06/09/24 Becca Campos LSW [address] [place] [address] Flatbed Truck Driver Family Medicine 12/29/22 08/24/24 Hilary Frank, RN [address] [place] [address] Licensed Practical Nurse Family Medicine 06/09/24 07/21/24 Kaylen Moore LPN [address] [facility] [place] [address] 07/21/24 documented as of this encounter
--- OUTSIDE RECORDS SUMMARY | 2025-01-30 09:54 | XMS_ITS | Encounter Summary ---
Author Organization [facility] Address [address] [facility] [place] [address] Care Team Providers Care Cane Loader Name Role Phone Shawn Barber MD Unavailable [phone] Shawn Barber MD Primary Care Provider Wednesday, Randee RETAIL SALES ASSOCIATE SEASONAL Unavailable [phone] Becca Campos PROPERTY AND CASUALTY INSURANCE AGENT Unavailable Hilary Frank RN Unavailable [phone] Kaylen Moore RETAIL SALES ASSOCIATE SEASONAL Unavailable Encounter Details Date Type Department Care Team (Late st Contact Info) Description 04/07/2023 Abstract [facility] [place] [facility] 112 [facility] 110 [place] [address] Shawn Barber MD 112 [facility] 110 [place], [place] [address] Social History Tobacco Use Types Packs/Day Years [...] 11/25/2022 [facility] [...] Visit [facility] [place] [facility] [address] [facility] 110 [place] [address] Shawn Barber MD [address] [facility] 110 [place] [address] 03/15/2025 3:10 PM EST Office Visit [facility] [address] [facility] [place] [address] Colt Mendieta, DPM 3006 [facility] 5 [place] [address] documented as of this encounter Visit Diagnoses Not on filedocumented in this encounter Care Teams Cane Loader Relationship Specialty Start Date End Date Shawn Barber MD [address] [place] [address] PCP - ACO Reach 09/24/22 Shawn Barber MD [address] [facility] 110 [place] [address] PCP - General Internal Medicine 10/22/22WednesdayRandee LPN [address] [place] [address] Licensed Practical Nurse Family Medicine 12/29/22 06/09/24 Becca Campos, PROPERTY AND CASUALTY INSURANCE AGENT [address] [place] [address] Loading Manager Family Medicine 12/29/22 08/24/24 Hilary Frank, RN [address] [place] [address] Licensed Practical Nurse Family Medicine 06/09/24 07/21/24 Kaylen Moore LPN [address] [place] [address] 07/21/24 documented as of this encounter
--- OUTSIDE RECORDS SUMMARY | 2025-01-30 09:54 | XMS_ITS | Encounter Summary ---
Author Organization [facility] Address [address] [facility] [place] [address] Care Team Providers Care Gear Roller Name Role Phone Shawn Barber MD Unavailable [phone] Shawn Barber MD Primary Care Provider [phone] Wednesday, Randee DIE CUT OPERATOR Unavailable [phone] Becca Campos PULMONOLOGY PHYSICIAN Unavailable [phone] Hilary Frank RN Unavailable Kaylen Moore DIE CUT OPERATOR Unavailable Encounter Details Date Type Department Care Team (Late st Contact Info) Description 02/23/2023 Abstract [facility] [place] [facility] 112 [facility] 110 [place] [address] Shawn Barber MD 112 [facility] 110 [place], [place] [address] Social History Tobacco Use Types Packs/Day Years [...] Recorded Patient Health Questionnaire-2 Score 1 11/25/2022 [facility] - [...] Office Visit [facility] [place] [facility] [address] [facility] 110 [place] [address] Shawn Barber MD [address] [facility] 110 [place] [address] 03/15/2025 3:10 PM EST Office Visit [facility] [address] [place] [address] Colt Mendieta, DPM 3006 [facility] 5 [place] [address] documented as of this encounter Visit Diagnoses Not on filedocumented in this encounter Care Teams Gear Roller Relationship Specialty Start Date End Date Shawn Barber MD [address] [place] [address] PCP - ACO Reach 09/24/22 Shawn Barber MD [address] [facility] 110 [place] [address] PCP - General Internal Medicine 10/22/22WednesdayRandee LPN [address] [place] [address] Licensed Practical Nurse Family Medicine 12/29/22 06/09/24 Becca Campos, PULMONOLOGY PHYSICIAN [address] [place] [address] Alternative Financing Specialist Family Medicine 12/29/22 08/24/24 Hilary Frank, RN [address] [place] [address] Licensed Practical Nurse Family Medicine 06/09/24 07/21/24 Kaylen Moore LPN [address] [place] [address] 07/21/24 documented as of this encounter
--- OUTSIDE RECORDS SUMMARY | 2025-01-30 09:54 | XMS_ITS | Encounter Summary ---
Author Organization [facility] Address [address] [facility] [place] [address] Care Team Providers Care Gasket Notcher Name Role Phone Shawn Barber MD Unavailable [phone] Shawn Barber MD Primary Care Provider [phone] Wednesday, Randee SENSITIZED PAPER TESTER Unavailable [phone] Becca Campos SCREW MACHINE HAND Unavailable Hilary Frank RN Unavailable [phone] Kaylen Moore SENSITIZED PAPER TESTER Unavailable Encounter Details Date Type Department Care Team (Late st Contact Info) Description 02/02/2024 Abstract [facility] [place] [facility] 112 [facility] 110 [place] [address] Shawn Barber MD 112 [facility] 110 [place], [place] [address] Social History Tobacco Use Types Packs/Day Years [...] attend chur ch or latter-day services? Never 12/06/2023 Do you belong to [...] Recorded Patient Health Questionnaire-2 Score 1 11/25/2022 [facility] of Occupat ional Health - Occupational [...] any time in the past 12 m [facility], were you homeless or living [...] [address] [place] [address] Shawn Barber MD [address] [place] [address] 03/15/2025 3:10 PM EST Office Visit [facility] [address] [facility] [place] [address] Colt Mendieta, DPM 3006 [facility] 5 [place] [address] documented as of this encounter Visit Diagnoses Not on filedocumented in this encounter Care Teams Gasket Notcher Relationship Specialty Start Date End Date Shwan Barber MD [address] [place] [address] PCP - ACO Reach 09/24/22 Shawn Barber MD [address] [place] [address] PCP - General Internal Medicine 10/22/22WednesdayRandee LPN [address] [place] [address] Licensed Practical Nurse Family Medicine 12/29/22 06/09/24 Becca Campos LSW [address] [place] [address] Sewing Inspector Family Medicine 12/29/22 08/24/24 Hilary Frank, RN [address] [place] [address] Licensed Practical Nurse Family Medicine 06/09/24 07/21/24 Kaylen Moore LPN [address] [place] [address] 07/21/24 documented as of this encounter
--- OUTSIDE RECORDS SUMMARY | 2025-01-30 09:54 | XMS_ITS | Encounter Summary ---
Author Organization [facility] Address [address] [facility] [place] [address] Care Team Providers Care Fig Washer Name Role Phone Shawn Barber MD Unavailable [phone] Shawn Barber MD Primary Care Provider Wednesday, Randee SOAPSTONER Unavailable [phone] Becca Campos MANUGRAPHER Unavailable Hilary Frank RN Unavailable [phone] Kaylen Moore SOAPSTONER Unavailable Encounter Details Date Type Department Care Team (Late st Contact Info) Description 02/03/2024 Abstract [facility] [place] [facility] [address] [facility] 110 [place] [address] Shawn Barber MD 112 [facility] 110 [place], [place] [address] Social History Tobacco Use Types Packs/Day Years [...] Score 1 11/25/2022 [facility] of Occupat ional Health - [...] [address] [place] [address] Shawn Barber MD [address] [place] [address] 03/15/2025 3:10 PM EST Office Visit [facility] [address] [place] [address] Colt Mendieta, DPM 3006 [facility] 5 [place] [address] documented as of this encounter Visit Diagnoses Not on filedocumented in this encounter Care Teams Fig Washer Relationship Specialty Start Date End Date Shawn Barber MD [address] [place] [address] PCP - ACO Reach 09/24/22 Shawn Barber MD [address] [place] [address] PCP - General Internal Medicine 10/22/22WednesdayRandee LPN [address] [place] [address] Licensed Practical Nurse Family Medicine 12/29/22 06/09/24 Becca Campos LSW [address] [place] [address] Assistant Administrator Family Medicine 12/29/22 08/24/24 Hilary Frank, RN [address] [place] [address] Licensed Practical Nurse Family Medicine 06/09/24 07/21/24 Kaylen Moore LPN [address] [place] [address] 07/21/24 documented as of this encounter
--- OUTSIDE RECORDS SUMMARY | 2025-01-30 09:54 | XMS_ITS | Encounter Summary ---
Author Organization [facility] Address [address] [facility] [place] [address] Care Team Providers Care Ward Attendant Name Role Phone Shawn Barber MD Unavailable [phone] Shawn Barber MD Primary Care Provider [phone] Wednesday, Randee SEWING DEMONSTRATOR Unavailable [phone] Becca Campos BUILD MASTER Unavailable Hilary Frank RN Unavailable Kaylen Moore SEWING DEMONSTRATOR Unavailable Encounter Details Date Type Department Care Team (Late st Contact Info) Description 01/05/2023 Abstract [facility] [place] [facility] [address] [facility] 110 [place] [address] Shawn Barber MD 112 [facility] 110 [place], [place] [id number] Social History Tobacco Use Types Packs/Day Years [...] [address] [place] [address] Shawn Barber MD [address] [place] [address] 03/15/2025 3:10 PM EST Office Visit [facility] [address] [place] [address] Colt Mendieta, DPM 3006 [facility] 5 [place] [address] documented as of this encounter Visit Diagnoses Not on filedocumented in this encounter Care Teams Ward Attendant Relationship Specialty Start Date End Date Shawn Barber MD [address] [place] [address] PCP - ACO Reach 09/24/22 Shawn Barber MD [address] [place] [address] PCP - General Internal Medicine 10/22/22WednesdayRandee LPN [address] [place] [address] Licensed Practical Nurse Family Medicine 12/29/22 06/09/24 Becca Campos, BUILD MASTER [address] [place] [address] Care Director Rn Family Medicine 12/29/22 08/24/24 Hilary Frank, RN 14[address] [place] [address] Licensed Practical Nurse Family Medicine 06/09/24 07/21/24 Kaylen Moore LPN [address] [place] [address] 07/21/24 documented as of this encounter
--- OUTSIDE RECORDS SUMMARY | 2025-01-30 09:54 | XMS_ITS | Encounter Summary ---
Author Organization [facility] Address [address] [facility] [place] [address] Care Team Providers Care Cashier Ticket Selling Name Role Phone Shawn Barber MD Unavailable [phone] Shawn Barber MD Primary Care Provider [phone] Kaylen Moore LPN Unavailable Encounter Details Date Type Department Care Team (Late st Contact Info) Description 11/30/2024 Abstract [facility] [place] [facility] [address] [facility] 110 [place] [address] Shawn Barber MD 112 [address] [facility] 110 [place], [place] [address] Social History Tobacco Use Types Packs/Day Years [...] How often do you attend chur or confucianist services? Never 12/06/2023 Do you belong to any clubs o r organizations such as moravian groups, unions, fraternal or athletic groups, or [...] Recorded Patient Health Questionnaire-2 Score 0 11/21/2024 [facility] [place] of Occupat ional Health - Occupational Stress [...] any time in the past 12 m [facility], were you homeless or [...] Visit [facility] [place] [facility] [address] [facility] 110 [place] [address] Shawn Barber MD [address] [place] [address] 03/15/2025 3:10 PM EST Office Visit [facility] [address] [facility] [address] [place] [address] Colt Mendieta, DPM 3006 [facility] 5 [place] [address] documented as of this encounter Visit Diagnoses Not on filedocumented in this encounter Care Teams Cashier Ticket Selling Relationship Specialty Start Date End Date Shawn Barber MD [address] [facility] [address] [place] [address] PCP - ACO Reach 09/24/22 Shawn Barber MD [address] [facility] 110 [place] [address] PCP - General Internal Medicine 10/22/22 Kaylen Moore LPN [address] [facility] 110 [place] [address] 07/21/24 documented as of this encounter
--- OUTSIDE RECORDS SUMMARY | 2025-01-30 09:54 | XMS_ITS | Encounter Summary ---
Author Organization [facility] Address [address] [facility] [place] [address] Care Team Providers Care Director Of Manufacturing Name Role Phone Shawn Barber MD Unavailable [phone] Shawn Barber MD Primary Care Provider Wednesday, Randee SUPERVISOR SHRIMP POND Unavailable [phone] Becca Campos CORE ASSEMBLY SUPERVISOR Unavailable Hilray Frank RN Unavailable Kaylen Moore SUPERVISOR SHRIMP POND Unavailable Encounter Details Date Type Department Care Team (Late st Contact Info) Description 04/16/2023 Abstract [facility] [place] [facility] 112 [facility] 110 [place] [address] Shawn Barber MD 112 [facility] 110 [place], [place] [address] Social History Tobacco Use Types Packs/Day Years [...] any clubs o r organizations such as advent groups, unions, fraternal or athletic groups, or [...] 1 11/25/2022 [facility] [...] [address] [place] [address] Shawn Barber MD [address] [place] [address] 03/15/2025 3:10 PM EST Office Visit [facility] [address] [place] [address] Colt Mendieta, DPChris 3006 [facility] 5 [place] [address] documented as of this encounter Visit Diagnoses Not on filedocumented in this encounter Care Teams Director Of Manufacturing Relationship Specialty Start Date End Date Shawn Barber MD [address] [place] [address] PCP - ACO Reach 09/24/22 Shawn Barber MD [address] [place] [address] PCP - General Internal Medicine 10/22/22WednesdayRandee LPN [address] [place] [address] Licensed Practical Nurse Family Medicine 12/29/22 06/09/24 Becca Campos, CORE ASSEMBLY SUPERVISOR [address] [place] [address] Radioisotope Production Operator Family Medicine 12/29/22 08/24/24 Hilary Frank, RN [address] [place] [address] Licensed Practical Nurse Family Medicine 06/09/24 07/21/24 Kaylen Moore LPN 112 [facility] 110 [place] [address] 07/21/24 documented as of this encounter
--- OUTSIDE RECORDS SUMMARY | 2025-01-30 09:54 | XMS_ITS | Encounter Summary ---
Author Organization [facility] Address [address] [facility] [place] [address] Care Team Providers Care Appeals Reviewer Veteran Name Role Phone Shawn Barber MD Unavailable [phone] Shawn Barber MD Primary Care Provider [phone] Kaylen Moore LPN Unavailable Encounter Details Date Type Department Care Team (Late st Contact Info) Description 11/30/2024 Abstract [facility] [place] [facility] [address] [facility] 110 [place] [address] Shawn Barber MD 112 [facility] 110 [place], [place] [address] Social History Tobacco Use Types Packs/Day Years [...] How often do you attend chur or pentecostalism services? Never 12/06/2023 Do you belong to [...] Recorded Patient Health Questionnaire-2 Score 0 11/21/2024 [facility] [place] of Occupat ional Health - Occupational Stress [...] Visit [facility] [place] [facility] [address] [facility] 110 [place] [address] Shawn Barber MD [address] [place] [address] 03/15/2025 3:10 PM EST Office Visit [facility] [address] [facility] 120 [place] [id number] Colt Mendieta, DPM 3006 [facility] 5 [place] [address] documented as of this encounter Visit Diagnoses Not on filedocumented in this encounter Care Teams Appeals Reviewer Veteran Relationship Specialty Start Date End Date Shawn Barber MD [address] [facility] 110 [place] [address] PCP - ACO Reach 09/24/22 Shawn Barber MD [address] [facility] 110 [place] [address] PCP - General Internal Medicine 10/22/22 Kaylen Moore LPN [address] [facility] 110 [place] [address] 07/21/24 documented as of this encounter
--- OUTSIDE RECORDS SUMMARY | 2025-01-30 09:55 | XMS_ITS | Encounter Summary ---
Author Organization [facility] Address [address] [facility] [place] [address] Care Team Providers Care Hydraulic Spinner Name Role Phone Shawn Barber MD Unavailable [phone] Shawn Barber MD Primary Care Provider [phone] Wednesday, Randee FLIGHT TEST ENGINEER Unavailable [phone] Becca Campos MANAGER LOCAL Unavailable Hilary Frank RN Unavailable Kaylen Moore FLIGHT TEST ENGINEER Unavailable Encounter Details Date Type Department Care Team (Late st Contact Info) Description 03/22/2023 Abstract [facility] [place] [facility] 112 [facility] 110 [place] [address] Shawn Barber MD 112 [facility] 110 [place], [place] [address] Social History Tobacco Use Types Packs/Day Years [...] any clubs o r organizations such as congregation groups, unions, fraternal or athletic groups, or [...] Patient Health Questionnaire-2 Score 1 11/25/2022 [facility] [...] [facility] [place] [facility] [address] [facility] 110 [place] [address] Shawn Barber MD 112 [address] 110 [place] [address] 03/15/2025 3:10 PM EST Office Visit [facility] [address] [place] [address] Colt Mendieta, DPM 3006 [facility] 5 [place] [address] documented as of this encounter Visit Diagnoses Not on filedocumented in this encounter Care Teams Hydraulic Spinner Relationship Specialty Start Date End Date Shawn Barber MD [address] [place] [address] PCP - ACO Reach 09/24/22 Shawn Barber MD [address] [facility] 110 [place] [address] PCP - General Internal Medicine 10/22/22WednesdayRandee LPN [address] [place] [address] Licensed Practical Nurse Family Medicine 12/29/22 06/09/24 Becca Campos, MANAGER LOCAL [address] [place] [address] Compliance Manager Family Medicine 12/29/22 08/24/24 Hilary Frank, RN [address] [place] [address] Licensed Practical Nurse Family Medicine 06/09/24 07/21/24 Kaylen Moore LPN [address] [place] [address] 07/21/24 documented as of this encounter
--- OUTSIDE RECORDS SUMMARY | 2025-01-30 09:55 | XMS_ITS | Encounter Summary ---
Author Organization [facility] Address [address] [facility] [place] [address] Care Team Providers Care Conference Concierge Name Role Phone Shawn Barber MD Unavailable [phone] Shawn Barber MD Primary Care Provider [phone] Wednesday, Randee VOCATIONAL REHABILITATION SUPERVISOR Unavailable [phone] Becca Campos WILDLIFE CONTROL OPERATOR Unavailable Hilary Frank RN Unavailable Kaylen Moore VOCATIONAL REHABILITATION SUPERVISOR Unavailable Encounter Details Date Type Department Care Team (Late st Contact Info) Description 03/23/2023 Abstract [facility] [place] [facility] 112 [facility] 110 [place] [address] Shawn Barber MD 112 [facility] 110 [place], [place] [address] Social History Tobacco Use Types Packs/Day Years [...] 1 11/25/2022 [facility] ional Health - Occupational [...] Visit [facility] [place] [facility] [address] [facility] 110 [place] [address] Shawn Barber MD [address] [place] [facility] 110 [place] [address] 03/15/2025 3:10 PM EST Office Visit [facility] [address] [place] [address] Colt Mendieta, DPM 3006 [facility] 5 [place] [address] documented as of this encounter Visit Diagnoses Not on filedocumented in this encounter Care Teams Conference Concierge Relationship Specialty Start Date End Date Shawn Barber MD [address] [place] [address] PCP - ACO Reach 09/24/22 Shawn Barber MD [address] [facility] 110 [place] [address] PCP - General Internal Medicine 10/22/22WednesdayRandee LPN [address] [place] [address] Licensed Practical Nurse Family Medicine 12/29/22 06/09/24 Becca Campos, WILDLIFE CONTROL OPERATOR [address] [place] [address] Track Sweeper Family Medicine 12/29/22 08/24/24 Hilary Frank, RN [address] [place] [address] Licensed Practical Nurse Family Medicine 06/09/24 07/21/24 Kaylen Moore LPN [address] [place] [address] 07/21/24 documented as of this encounter
--- OUTSIDE RECORDS SUMMARY | 2025-01-30 09:55 | XMS_ITS | Encounter Summary ---
Author Organization [facility] Address [address] [facility] [place] [address] Care Team Providers Care Water Quality Technician Name Role Phone Shawn Barber MD Unavailable [phone] Shawn Barber MD Primary Care Provider Wednesday, Randee CARPENTER ASSISTANT INSTALLER Unavailable [phone] Becca Campos CANTEEN MANAGER Unavailable Hilary Frank RN Unavailable Kaylen Moore CARPENTER ASSISTANT INSTALLER Unavailable Encounter Details Date Type Department Care Team (Late st Contact Info) Description 03/22/2023 Abstract [facility] [place] [facility] [address] [facility] 110 [place] [address] Shawn Barber MD 112 [facility] 110 [place], [place] [address] Social History Tobacco Use Types Packs/Day Years [...] attend chur ch or judaism services? Never 01/29/2023 Do you belong to any clubs o r organizations such as lutheran groups, unions, fraternal or athletic groups, or [...] Recorded Patient Health Questionnaire-2 Score 1 11/25/2022 [facility] - Occupational Stress Questionnaire [...] Office Visit [facility] [place] [facility] 112 [address] [facility] 110 [place] [address] Shawn Barber MD [address] [facility] 110 [place] [address] 03/15/2025 3:10 PM EST Office Visit [facility] [address] [place] [address] Colt Mendieta, DPM 3006 [facility] 5 [place] [address] documented as of this encounter Visit Diagnoses Not on filedocumented in this encounter Care Teams Water Quality Technician Relationship Specialty Start Date End Date Shawn Barber MD [address] [place] [address] PCP - ACO Reach 09/24/22 Shawn Barber MD [address] [facility] 110 [place] [address] PCP - General Internal Medicine 10/22/22WednesdayRandee LPN [address] [place] [address] Licensed Practical Nurse Family Medicine 12/29/22 06/09/24 Becca Campos, CANTEEN MANAGER [address] [place] [address] Customer Contact Specialist Family Medicine 12/29/22 08/24/24 Hilary Frank, RN [address] [place] [address] Licensed Practical Nurse Family Medicine 06/09/24 07/21/24 Kaylen Moore LPN [address] [place] [address] 07/21/24 documented as of this encounter
--- OUTSIDE RECORDS SUMMARY | 2025-01-30 09:55 | XMS_ITS | Encounter Summary ---
Author Organization [facility] Address [address] [facility] [place] [address] Care Team Providers Care Carousel Operator Name Role Phone Shawn Barber MD Unavailable [phone] Shawn Barber MD Primary Care Provider [phone] Wednesday, Randee PULMONARY FUNCTION TECHNICIAN Unavailable [phone] Becca Campos NURSE WOUND Unavailable [phone] Hilary Frank RN Unavailable Kaylen Moore PULMONARY FUNCTION TECHNICIAN Unavailable Encounter Details Date Type Department Care Team (Late st Contact Info) Description 04/13/2023 Orders Only [facility] [place] [facility] [address] [place] [address] A, Unknown Practice [address] [place] [phone] Social History Tobacco Use Types Packs/Day Years [...] Questionnaire-2 Score 1 11/25/2022 [facility] of Occupat ional Health - Occupational [...] Visit [facility] [place] [facility] [address] [facility] 110 [place] [address] Shawn Barber MD [address] [place] [address] 03/15/2025 3:10 PM EST Office Visit [facility] [address] [facility] 120 [place] [address] Colt Mendieta, DEVI 3006 [facility] 5 [place] [address] documented as of this encounter Procedures Procedure Name Priority Date/Time Associated Diagnosis Comments MAMMOGRAM* Routine 04/12/2023 11:52 AM EST documented in this encounter Results * MAMMOGRAM* (04/12/2023 11:52 AM EST) Anatomical Region Laterality Modality Radiographic Bhavya ging us Unknown Practice A IMG XR PROCEDURES Final Resul t documented in this encounter Visit Diagnoses Not on filedocumented in this encounter Care Teams Carousel Operator Relationship Specialty Start Date End Date Shawn Barber MD [address] [facility] 110 [place] [address] PCP - ACO Reach 09/24/22 Shawn Barber MD [address] [facility] 110 [place] [address] PCP - General Internal Medicine 10/22/22WednesdayRandee LPN [address] [facility] 110 [place] [address] Licensed Practical Nurse Family Medicine 12/29/22 06/09/24 Becca Campos, NAY [address] [place] [address] Staff Weapons Officer Family Medicine 12/29/22 08/24/24 Hilary Frank, RN [address] [place] [address] Licensed Practical Nurse Family Medicine 06/09/24 07/21/24 Kaylen Moore LPN [address] [facility] 110 [place] [address] 07/21/24 documented as of this encounter
--- OUTSIDE RECORDS SUMMARY | 2025-01-30 09:55 | XMS_ITS | Encounter Summary ---
Author Organization [facility] Address [address] [facility] [place] [address] Care Team Providers Care Opening Machine Cleaner Name Role Phone Shawn Barber MD Unavailable [phone] Shawn Barber MD Primary Care Provider [phone] Wednesday, Randee SUPERVISOR WOOD ROOM Unavailable [phone] Becca Campos ORACLE BUSINESS ANALYST Unavailable [phone] Hilary Frank RN Unavailable [phone] Kaylen Moore SUPERVISOR WOOD ROOM Unavailable Encounter Details Date Type Department Care Team (Late st Contact Info) Description 04/14/2023 Abstract [facility] [place] [facility] 112 [facility] 110 [place] [address] Shawn Barber MD 112 [facility] 110 [place], [place] [address] Social History Tobacco Use Types Packs/Day Years [...] Recorded Patient Health Questionnaire-2 Score 1 11/25/2022 [facility] ional Health - Occupational [...] Office Visit [facility] [place] [facility] [address] [facility] 110 [place] [address] Shawn Barber MD [address] [facility] 110 [place] [address] 03/15/2025 3:10 PM EST Office Visit [facility] [address] [place] [address] Colt Mendieta, DPM 3006 [facility] 5 [place] [address] documented as of this encounter Visit Diagnoses Not on filedocumented in this encounter Care Teams Opening Machine Cleaner Relationship Specialty Start Date End Date Shawn Barber MD [address] [place] [address] PCP - ACO Reach 09/24/22 Shawn Barber MD [address] [facility] 110 [place] [address] PCP - General Internal Medicine 10/22/22WednesdayRandee LPN [address] [place] [address] Licensed Practical Nurse Family Medicine 12/29/22 06/09/24 Becca Campos, ORACLE BUSINESS ANALYST [address] [place] [address] Electrocardiogram Technician Family Medicine 12/29/22 08/24/24 Hilary Frank, RN [address] [place] [address] Licensed Practical Nurse Family Medicine 06/09/24 07/21/24 Kaylen Moore LPN [address] [place] [address] 07/21/24 documented as of this encounter
--- OUTSIDE RECORDS SUMMARY | 2025-01-30 09:55 | XMS_ITS | Encounter Summary ---
Author Organization [facility] Address [address] [facility] [place] [address] Care Team Providers Care Housecalls Nurse Name Role Phone Shawn Barber MD Unavailable [phone] Shawn Barber MD Primary Care Provider Wednesday, Randee JURY CONSULTANT Unavailable [phone] Becca Campos FAMILY LAW ATTORNEY Unavailable Hilary Frank RN Unavailable Kaylen Moore JURY CONSULTANT Unavailable Encounter Details Date Type Department Care Team (Late st Contact Info) Description 11/13/2022 Abstract [facility] [place] [facility] [address] [facility] 110 [place] [address] Shawn Barber MD [address] [facility] 110 [place], [place] [address] Social History Tobacco Use Types Packs/Day Years [...] [address] [place] [address] Shawn Barber MD [address] [place] [address] 03/15/2025 3:10 PM EST Office Visit [facility] [address] [place] [address] Colt Mendieta, DPM 3006 [facility] 5 [place] [address] documented as of this encounter Visit Diagnoses Not on filedocumented in this encounter Care Teams Housecalls Nurse Relationship Specialty Start Date End Date Shawn Barber MD [address] [place] [address] PCP - ACO Reach 09/24/22 Shawn Barber MD [address] [place] [address] PCP - General Internal Medicine 10/22/22WednesdayRandee LPN [address] [place] [address] Licensed Practical Nurse Family Medicine 12/29/22 06/09/24 Becca Campos, FAMILY LAW ATTORNEY [address] [place] [address] Advertiser Family Medicine 12/29/22 08/24/24 Hilary Frank, RN [address] [place] [address] Licensed Practical Nurse Family Medicine 06/09/24 07/21/24 Kaylen Moore LPN [address] [place] [address] 07/21/24 documented as of this encounter
--- OUTSIDE RECORDS SUMMARY | 2025-01-30 09:55 | XMS_ITS | Encounter Summary ---
Author Organization [facility] Address [address] [facility] [place] [address] Care Team Providers Care Tower Air Traffic Control Specialist Name Role Phone Shawn Barber MD Unavailable [phone] Shawn Barber MD Primary Care Provider Wednesday, Randee SPANISH INTERPRETER/TRANSLATOR Unavailable [phone] Becca Campos DRY HEAT CABINET ATTENDANT Unavailable Hilary Frank RN Unavailable Kaylen Moore SPANISH INTERPRETER/TRANSLATOR Unavailable Encounter Details Date Type Department Care Team (Late st Contact Info) Description 03/29/2023 Abstract [facility] [place] [facility] 112 [facility] 110 [place] [address] Shawn Barber MD 112 [facility] 110 [place], [place] [id number] Social History Tobacco Use Types Packs/Day Years [...] Recorded Patient Health Questionnaire-2 Score 1 11/25/2022 [facility] [...] Office Visit [facility] [place] [facility] [address] [facility] 110 [place] [address] Shawn Barber MD [address] [place] [facility] 110 [place] [address] 03/15/2025 3:10 PM EST Office Visit [facility] [address] [place] [address] Colt Mendieta, DPM 3006 [facility] 5 [place] [address] documented as of this encounter Visit Diagnoses Not on filedocumented in this encounter Care Teams Tower Air Traffic Control Specialist Relationship Specialty Start Date End Date Shawn Barber MD [address] [place] [address] PCP - ACO Reach 09/24/22 Shawn Barber MD [address] [facility] 110 [place] [address] PCP - General Internal Medicine 10/22/22WednesdayRandee LPN [address] [place] [address] Licensed Practical Nurse Family Medicine 12/29/22 06/09/24 Becca Campos, DRY HEAT CABINET ATTENDANT [address] [place] [address] Sheep Shearer Family Medicine 12/29/22 08/24/24 Hilary Frank, RN [address] [place] [address] Licensed Practical Nurse Family Medicine 06/09/24 07/21/24 Kaylen Moore LPN [address] [place] [address] 07/21/24 documented as of this encounter
--- OUTSIDE RECORDS SUMMARY | 2025-01-30 09:55 | XMS_ITS | Encounter Summary ---
Author Organization [facility] Address [address] [facility] [place] [address] Care Team Providers Care Hose Coupling Joiner Name Role Phone Shawn Barber MD Unavailable [phone] Shawn Barber MD Primary Care Provider [phone] Wednesday, Randee DASHBOARD DEVELOPER Unavailable [phone] Becca Campos CLAIMS PROCESSOR Unavailable Hilary Frank RN Unavailable [phone] Kaylen Moore DASHBOARD DEVELOPER Unavailable Encounter Details Date Type Department Care Team (Late st Contact Info) Description 10/13/2022 Abstract [facility] [place] [facility] [address] [facility] 110 [place] [phone] Shawn Barber MD 112 [facility] 110 [place], [place] [id number] Social History Tobacco Use Types Packs/Day Years Used Date Smoking Tobacco: Never Assessed Comments Unknown Sex and Gender Information Value Date Recorded Sex Assigned at Not on file Legal Sex Female 6:46 PM EDT Gender Identity Not on file Sexual Orientation Not on file documented as of this encounter Plan of Treatment Upcoming Encounters Date Type Department Care Team (Late Contact Info) Description 02/05/2025 2:00 PM EDT Office Visit [facility] [place] [facility] [address] [facility] [address] [place] [address] Shawn Barber MD [address] [facility] 110 [place] [address] 03/15/2025 3:10 PM EST Office Visit [facility] [address] [place] [address] [place] [address] Colt Mendieta, DPM 3006 [facility] 5 [place] [address] documented as of this encounter Visit Diagnoses Not on filedocumented in this encounter Care Teams Hose Coupling Joiner Relationship Specialty Start Date End Date Shawn Barber MD [address] [facility] 110 [place] [address] PCP - ACO Reach 09/24/22 Shawn Barber MD [address] [facility] 110 [place] [address] PCP - General Internal Medicine 10/22/22WednesdayRandee LPN [address] [facility] 110 [place] [address] Licensed Practical Nurse Family Medicine 12/29/22 06/09/24 Becca Campos LSW [address] [place] [address] Paperboard Boxes Estimator Family Medicine 12/29/22 08/24/24 Hilary Frank, RN [address] [place] [address] Licensed Practical Nurse Family Medicine 06/09/24 07/21/24 Kaylen Moore LPN [address] [facility] 110 [place] [address] 07/21/24 documented as of this encounter
--- OUTSIDE RECORDS SUMMARY | 2025-01-30 09:55 | XMS_ITS | Encounter Summary ---
Author Organization [facility] Address [address] [facility] [place] [address] Care Team Providers Care Resident Medical Officer Name Role Phone Shawn Barber MD Unavailable [phone] Shawn Barber MD Primary Care Provider Wednesday, Randee TELEVISION JOURNALIST Unavailable [phone] Becca Campos SURGICAL INSTRUMENTS INSPECTOR Unavailable Hilary Frank RN Unavailable Kaylen Moore TELEVISION JOURNALIST Unavailable Encounter Details Date Type Department Care Team (Late st Contact Info) Description 03/22/2023 Abstract [facility] [place] [facility] 112 [facility] 110 [place] [address] Shawn Barber MD 112 [facility] 110 [place], [place] [address] Social History Tobacco Use Types Packs/Day Years [...] Recorded Patient Health Questionnaire-2 Score 1 11/25/2022 [facility] [...] Office Visit [facility] [place] [facility] [address] [facility] 110 [place] [address] Shawn Barber MD [address] [place] [facility] 110 [place] [address] 03/15/2025 3:10 PM EST Office Visit [facility] [address] [place] [address] Colt Mendieta, DPM 3006 [facility] 5 [place] [address] documented as of this encounter Visit Diagnoses Not on filedocumented in this encounter Care Teams Resident Medical Officer Relationship Specialty Start Date End Date Shawn Barber MD [address] [place] [address] PCP - ACO Reach 09/24/22 Shawn Barber MD [address] [facility] 110 [place] [address] PCP - General Internal Medicine 10/22/22WednesdayRandee LPN [address] [place] [address] Licensed Practical Nurse Family Medicine 12/29/22 06/09/24 Becca Campos, SURGICAL INSTRUMENTS INSPECTOR [address] [place] [address] Rn Forensic Family Medicine 12/29/22 08/24/24 Hilary Frank, RN [address] [place] [address] Licensed Practical Nurse Family Medicine 06/09/24 07/21/24 Kaylen Moore LPN [address] [place] [address] 07/21/24 documented as of this encounter
--- OUTSIDE RECORDS SUMMARY | 2025-01-30 09:55 | XMS_ITS | Encounter Summary ---
Author Organization [facility] Address [address] [facility] [place] [address] Care Team Providers Care Ecological Risk Assessor Name Role Phone Shawn Barber MD Unavailable [phone] Shawn Barber MD Primary Care Provider Becca Campos REGISTER REPAIRER Unavailable [phone] Hilary Frank RN Unavailable [phone] Kaylen Moore ROOM ATTENDANT Unavailable Encounter Details Date Type Department Care Team (Late st Contact Info) Description 07/18/2024 Abstract [facility] [place] [facility] [address] [facility] 110 [place] [address] Shawn Barber MD 112 [facility] 110 [place] [address] Social History Tobacco Use Types [...] attend chur ch or protestant services? Never 12/06/2023 Do you belong to [...] Score 1 11/25/2022 [facility] - Occupational [...] any time in the past 12 m [facility], were you homeless or living in [...] 2:00 PM EDT Office Visit [facility] [place] [facility] [address] [facility] 110 [place] [address] Sahwn Barber MD [address] [facility] 110 [place] [address] 03/15/2025 3:10 PM EST Office Visit [facility] [address] [facility] 120 [place] [address] Colt Mendieta, DPM 3006 [facility] 5 [place] [address] documented as of this encounter Visit Diagnoses Not on filedocumented in this encounter Care Teams Ecological Risk Assessor Relationship Specialty Start Date End Date Shawn Barber MD [address] [facility] 110 [place] [address] PCP - ACO Reach 09/24/22 Shawn Barber MD [address] [facility] 110 [place] [address] PCP - General Internal Medicine 10/22/22 Becca Campos LSW [address] [place] [address] Electrotype Finisher Family Medicine 12/29/22 08/24/24 Hilary Frank, RN [address] [place] [address] Licensed Practical Nurse Family Medicine 06/09/24 07/21/24 Kaylen Moore LPN [address] [facility] 110 [place] [address] 07/21/24 documented as of this encounter
--- OUTSIDE RECORDS SUMMARY | 2025-01-30 09:55 | XMS_ITS | Encounter Summary ---
Author Organization [facility] Address [address] [facility] [place] [address] Care Team Providers Care Tool And Die Inspector Name Role Phone Shawn Barber MD Unavailable [phone] Shawn Barber MD Primary Care Provider [phone] Kaylen Moore LPN Unavailable Encounter Details Date Type Department Care Team (Late st Contact Info) Description 10/24/2024 Abstract [facility] [place] [facility] [address] [facility] 110 [place] [address] Shawn Barber MD [address] [facility] 110 [place], [place] [phone] Social History Tobacco Use Types Packs/Day Years [...] How often do you attend chur or episcopal services? Never 12/06/2023 Do you belong to [...] Date Recorded Patient Health Questionnaire-2 Score 0 10/23/2024 [facility] ional Health - Occupational Stress [...] Visit [facility] [place] [facility] [address] [facility] 110 [place] [address] Shawn Barber MD [address] [place] [address] 03/15/2025 3:10 PM EST Office Visit [facility] [address] [facility] 120 [place] [address] Colt Mendieta, DPM 3006 [facility] 5 [place] [address] documented as of this encounter Visit Diagnoses Not on filedocumented in this encounter Care Teams Tool And Die Inspector Relationship Specialty Start Date End Date Shawn Barber MD [address] [facility] 110 [place] [address] PCP - ACO Reach 09/24/22 Shawn Barber MD [address] [facility] 110 [place] [address] PCP - General Internal Medicine 10/22/22 Kaylen Moore LPN [address] [facility] 110 [place] [address] 07/21/24 documented as of this encounter
--- OUTSIDE RECORDS SUMMARY | 2025-01-30 09:55 | XMS_ITS | Encounter Summary ---
Author Organization [facility] Address [address] [facility] [place] [address] Care Team Providers Care Brand Specialist Name Role Phone Shawn Barber MD Unavailable [phone] Shawn Barber MD Primary Care Provider [phone] Becca Campos ACCOUNTANT SUPERVISOR Unavailable [phone] aKylen Moore LPN Unavailable Encounter Details Date Type Department Care Team (Late st Contact Info) Description 08/17/2024 Abstract [facility] [place] [facility] [address] [facility] 110 [place] [address] Shawn Barber MD 112 [facility] 110 [place] [address] Social History Tobacco Use Types Packs/Day Years [...] Recorded Patient Health Questionnaire-2 Score 1 11/25/2022 [facility] ional Health - Occupational [...] in the [facility] 12 m [facility], were you homeless or living in [...] PM EDT [facility] [place] [facility] [address] [facility] 110 [place] [address] Shawn Barber MD [address] [facility] 110 [place] [address] 03/15/2025 3:10 PM EST Office Visit [facility] [address] [place] [address] [place] [address] Colt Mendieta, DPM 3006 [facility] 5 [place] [address] documented as of this encounter Visit Diagnoses Not on filedocumented in this encounter Care Teams Brand Specialist Relationship Specialty Start Date End Date Shawn Barber MD [address] [facility] 110 [place] [address] PCP - ACO Reach 09/24/22 Shawn Barber MD [address] [facility] 110 [place] [address] PCP - General Internal Medicine 10/22/22 Becca Campos, NAY [address] [place] [address] Hot Stone Setter Family Medicine 12/29/22 08/24/24 Kaylen Moore LPN [address] [facility] 110 [place] [address] 07/21/24 documented as of this encounter
--- OUTSIDE RECORDS SUMMARY | 2025-01-30 09:55 | XMS_ITS | Encounter Summary ---
Author Organization [facility] Address [address] [place] [address] Care Team Providers Care Yarn Bleaching Machine Operator Name Role Phone Shawn Barber MD Unavailable [phone] Shawn Barber MD Primary Care Provider [phone] Wednesday, Randee LINE PAINTING MACHINE OPERATOR Unavailable [phone] Becca Campos LEAD RAMP AGENT Unavailable [phone] Hilary Frank RN Unavailable [phone] Kaylen Moore LINE PAINTING MACHINE OPERATOR Unavailable Encounter Details Date Type Department Care Team (Late st Contact Info) Description 04/12/2023 Orders Only [facility] [place] [facility] [address] [place] [phone] A, Unknown Practice [address] [place] [id number] Social History Tobacco Use Types Packs/Day Years [...] Recorded Patient Health Questionnaire-2 Score 1 11/25/2022 [facility] of Occupat ional Health [...] Visit [facility] [place] [facility] [address] [facility] 110 [place] [address] Shawn Barber MD [address] [place] [address] 03/15/2025 3:10 PM EST Office Visit [facility] [address] [place] [address] Colt Mendieta, DPChris 3006 [facility] 5 [place] [address] documented as of this encounter Procedures Procedure Name Priority Date/Time Associated Diagnosis Comments SCANNED LABS Routine 04/09/2023 10:02 AM EST documented in this encounter Results * SCANNED LABS (04/09/2023 10:02 AM EST) us Unknown Practice A LAB CHG PERFORMABLES Final Re sult documented in this encounter Visit Diagnoses Not on filedocumented in this encounter Care Teams Yarn Bleaching Machine Operator Relationship Specialty Start Date End Date Shawn Barber MD [address] [facility] 110 [place] [address] PCP - ACO Reach 09/24/22 Shawn Barber MD [address] [facility] 110 [place] [address] PCP - General Internal Medicine 10/22/22WednesdayRandee LPN [address] [facility] 110 [place] [address] Licensed Practical Nurse Family Medicine 12/29/22 06/09/24 Becca Campos, LEAD RAMP AGENT [address] [place] [address] Living Manager Family Medicine 12/29/22 08/24/24 Hilary Frank, RN [address] [place] [address] Licensed Practical Nurse Family Medicine 06/09/24 07/21/24 Kaylen Moore LPN [address] [facility] 110 [place] [address] 07/21/24 documented as of this encounter
--- OUTSIDE RECORDS SUMMARY | 2025-01-30 09:55 | XMS_ITS | Encounter Summary ---
Author Organization [facility] Address [address] [facility] [place] [address] Care Team Providers Care Postdoctoral Scientist Name Role Phone Shawn Barber MD Unavailable [phone] Shawn Barber MD Primary Care Provider Wednesday, Randee SEGALN Unavailable [phone] Becca Campos STRAIGHTENER AND ALIGNER Unavailable Hilary Frank RN Unavailable Kaylen Moore OIL FIELD TESTER Unavailable Encounter Details Date Type Department Care Team (Late st Contact Info) Description 04/13/2023 Clinisync Result Encounter [facility] External Department Unsolicited Shawn Barber MD [address] [place] [address] Social History Tobacco Use Types [...] How often do you attend chur or faith services? Never 01/29/2023 Do you [...] Score 1 11/25/2022 [facility] Occupat ional Health - [...] [facility] [place] [facility] [address] [facility] 110 [place] [address] Shawn Barber MD [address] [facility] [address] [place] [phone] 03/15/2025 3:10 PM EST Office Visit [facility] [place] [facility] [address] [place] [address] Colt Mendieta, DPM 3006 [facility] 5 [place] [address] documented as of this encounter Procedures Procedure Name Priority Date/Time Associated Diagnosis Comments BI MAMMOGRAM SCREENING BILATERAL 04/13/2023 7:33 AM EST documented in this encounter Results * Bilateral screening mammogram (04/13/2023 7:33 AM EST) Anatomical Region Laterality Modality Breast Bilateral Mammography 04/13/2023 7:33 AM EST Narrative 04/13/2023 7:35 AM EST [address] [address] Mammography Report Signed Patient: MARTIN MOORE MR#: [id number] : 1950 Acct:[id number] Age/Sex: 72 / F ADM Date: 04/12/23 Loc: MAMMO Attending Dr: SHAWN BARBER Ordering Physician: SHAWN BARBER Results: Date of Service: 04/12/23 Follow Up: Procedure(s): MM screening mammo BI Accession Number(s): [id number] cc: SHAWN BARBER Patient Name: MARTIN MOORE MR#: [id number] : 1950 Exam Date: 04/12/2023 Ordering Doctor: [...] Treatments None Family Cancers None LOCATION: [facility] BREAST COMPOSITION: Almost entirely fatty. FINDINGS: DIAGNOSTIC [...] M.D. Signed By: 04/13/2335 DD/ 2 TD/TT: Wafer Substrate Tester: Procedure Note Radiology, Radiologist, MD - 04/13/2023 [address] [place] [id number] Mammography Report Signed Patient: MARTIN MOORE MMR#: [id number] : 9Acct:[id number] Age/Sex: 72 / FADM Date: 04/12/23 Loc: MAMMO Attending Dr: SHAWN BARBER Ordering Physician: SHAWN BARBERResults: Date of Service: 04/12/23Follow Up: Procedure(s): MM screening mammo BI Accession Number(s): [id number] cc: SHAWN BARBER Patient Name: MARTIN MOORE MR#: [id number] : 1950 Exam Date: 04/12/2023 Ordering Doctor: [...] Treatments None Family Cancers None LOCATION: [facility] BREAST COMPOSITION: Almost entirely fatty. FINDINGS: DIAGNOSTIC [...] 07:33 Dictated By: Eitan Blackwell M.D. Signed By:04/13/23734 DD/ 2 TD/TT: Wafer Substrate Tester: Shawn Barber MD IMG BI PROCEDURES Final Result documented in this encounter Visit Diagnoses Not on filedocumented in this encounter Care Teams Postdoctoral Scientist Relationship Specialty Start Date End Date Shawn Barber MD [address] [place] [address] PCP - ACO Reach 09/24/22 Shawn Barber MD [address] [place] [address] PCP - General Internal Medicine 10/22/22WednesdayRandee LPN [address] [place] [address] Licensed Practical Nurse Family Medicine 12/29/22 06/09/24 Becca Campos, STRAIGHTENER AND ALIGNER [address] [place] [address] Tutorial Laboratory Supervisor Family Medicine 12/29/22 08/24/24 Hilary Frank, RN [address] [place] [address] Licensed Practical Nurse Family Medicine 06/09/24 07/21/24 Kaylen Moore LPN [address] [place] [address] 07/21/24 documented as of this encounter
--- OUTSIDE RECORDS SUMMARY | 2025-01-30 09:55 | XMS_ITS | Encounter Summary ---
Author Organization [facility] Address [address] [facility] [place] [address] Care Team Providers Care Remedial Project Manager Name Role Phone Shawn Barber MD Unavailable [phone] Shawn Barber MD Primary Care Provider Wednesday, Randee SUPERINTENDENT SYSTEM OPERATION Unavailable [phone] Becca Campos MAJOR ASSEMBLY INSPECTOR Unavailable Hilary Frank RN Unavailable [phone] Kaylen Moore SUPERINTENDENT SYSTEM OPERATION Unavailable Encounter Details Date Type Department Care Team (Late st Contact Info) Description 03/30/2023 Abstract [facility] [place] [facility] [address] [facility] 110 [place] [address] Shawn Barber MD 112 [facility] 110 [place], [place] [phone] Social History Tobacco Use Types Packs/Day Years [...] Score 1 11/25/2022 [facility] - [...] Office Visit [facility] [place] [facility] [address] [facility] 110 [place] [address] Shawn Barber MD [address] [facility] 110 [place] [address] 03/15/2025 3:10 PM EST Office Visit [facility] [address] [place] [address] Colt Mendieta, DPM [facility] [facility] 5 [place] [address] documented as of this encounter Visit Diagnoses Not on filedocumented in this encounter Care Teams Remedial Project Manager Relationship Specialty Start Date End Date Shawn Barber MD [address] [place] [address] PCP - ACO Reach 09/24/22 Shawn Barber MD [address] [facility] [address] [place] [address] PCP - General Internal Medicine 10/22/22WednesdayRandee LPN [address] [place] [address] Licensed Practical Nurse Family Medicine 12/29/22 06/09/24 Becca Campos, MAJOR ASSEMBLY INSPECTOR [address] [place] [address] Export Traffic Department Manager Family Medicine 12/29/22 08/24/24 Hilary Frank, RN [address] [place] [address] Licensed Practical Nurse Family Medicine 06/09/24 07/21/24 Kaylen Moore LPN [address] [place] [address] 07/21/24 documented as of this encounter
--- OUTSIDE RECORDS SUMMARY | 2025-01-30 09:55 | XMS_ITS | Encounter Summary ---
Author Organization [facility] Address [address] [facility] [place] [address] Care Team Providers Care Sales Management Intern Name Role Phone Shawn Barber MD Unavailable [phone] Shawn Barber MD Primary Care Provider Wednesday, Randee HALL CLEANER Unavailable [phone] Becca Campos FINISH INSPECTOR Unavailable Hilary Frank RN Unavailable Kaylen Moore HALL CLEANER Unavailable Encounter Details Date Type Department Care Team (Late st Contact Info) Description 10/12/2022 Orders Only [facility] [place] [facility] [address] [place] [phone] Shawn Barber MD [address] [place], [place] [address] Social History Tobacco Use Types Packs/Day Years [...] Tompkins [address] [place] [address] Shawn Barber MD [address] [place] [address] 03/15/2025 3:10 PM EST Office Visit [facility] [address] [place] [address] Colt Mendieta, DPM [address] [facility] 5 [place] [address] documented as of this encounter Procedures Procedure Name Priority Date/Time Associated Diagnosis Comments ECHOCARDIOGRAM Routine 10/09/2022 11:39 AM EDT documented in this encounter Results * ECHOCARDIOGRAM (10/09/2022 11:39 AM EDT) Anatomical Region Laterality Modality Other Shawn Barber MD [facility] Final Result documented in this encounter Visit Diagnoses Not on filedocumented in this encounter Care Teams Sales Management Intern Relationship Specialty Start Date End Date Shawn Barber MD [address] [facility] 110 [place] [address] PCP - ACO Reach 09/24/22 Shawn Barber MD [address] [facility] 110 [place] [address] PCP - General Internal Medicine 10/22/22WednesdayRandee LPN [address] [facility] [address] [place] [address] Licensed Practical Nurse Family Medicine 12/29/22 06/09/24 Becca Campos, FINISH INSPECTOR [address] [place] [address] Machining Associate Family Medicine 12/29/22 08/24/24 Hilary Frank, RN [address] [place] [address] Licensed Practical Nurse Family Medicine 06/09/24 07/21/24 Kaylen Moore LPN 112 [facility] 110 [place] [address] 07/21/24 documented as of this encounter
--- OUTSIDE RECORDS SUMMARY | 2025-01-30 09:55 | XMS_ITS | Encounter Summary ---
Author Organization [facility] Address [address] [facility] [address] Care Team Providers Care Rigger Apprentice Name Role Phone Shawn Barber MD Unavailable [phone] Shawn Barber MD Primary Care Provider [phone] Kaylen Moore LPN Unavailable Encounter Details Date Type Department Care Team (Late st Contact Info) Description 10/24/2024 Abstract [facility] [place] [facility] [address] [facility] 110 [place] [phone] Shawn Barber MD [address] [facility] 110 [place], [place] [phone] Social History Tobacco Use Types Packs/Day Years [...] How often do you attend chur or scientology services? Never 12/06/2023 Do you [...] Recorded Patient Health Questionnaire-2 Score 0 10/23/2024 [facility] [place] of Occupat ional Health - Occupational Stress [...] 2:00 PM EDT Office Visit [facility] [place] Tompik[facility] [address] [facility] 110 [place] [address] Shawn Barber MD [address] [place] [address] 03/15/2025 3:10 PM EST Office Visit [facility] [address] [facility] 120 [place] [phone] Colt Mendieta, DPM 3006 [facility] 5 [place] [address] documented as of this encounter Visit Diagnoses Not on filedocumented in this encounter Care Teams Rigger Apprentice Relationship Specialty Start Date End Date Shawn Barber MD [address] [facility] 110 [place] [address] PCP - ACO Reach 09/24/22 Shawn Barber MD [address] [facility] 110 [place] [address] PCP - General Internal Medicine 10/22/22 Kaylen Moore LPN [address] [facility] 110 [place] [address] 07/21/24 documented as of this encounter
--- OUTSIDE RECORDS SUMMARY | 2025-01-30 09:55 | XMS_ITS | Encounter Summary ---
Author Organization [facility] Address [address] [facility] [place] [address] Care Team Providers Care Plate Finisher Name Role Phone Shawn Barber MD Unavailable [phone] Shawn Barber MD Primary Care Provider Wednesday, Randee AUTOMOBILE CLUB INFORMATION CLERK Unavailable [phone] Becca Campos TURN DOWN ATTENDANT Unavailable Hilary Frank RN Unavailable [phone] Kaylen Moore AUTOMOBILE CLUB INFORMATION CLERK Unavailable Encounter Details Date Type Department Care Team (Late st Contact Info) Description 04/12/2023 Abstract [facility] [place] [facility] 112 [facility] 110 [place] [address] Shawn Barber MD 112 [facility] 110 [place], [place] [address] Social History Tobacco Use Types Packs/Day Years [...] any clubs o r organizations such as episcopalian groups, unions, fraternal or athletic groups, or [...] Score 1 11/25/2022 [facility] [...] [place] Tompkins [address] [facility] 110 [place] [address] Shawn Barber MD [address] [facility] 110 [place] [address] 03/15/2025 3:10 PM EST Office Visit [facility] [address] [place] [address] Colt Mendieta, DPM 3006 [facility] 5 [place] [address] documented as of this encounter Visit Diagnoses Not on filedocumented in this encounter Care Teams Plate Finisher Relationship Specialty Start Date End Date Shawn Barber MD [address] [place] [address] PCP - ACO Reach 09/24/22 Shawn Barber MD [address] [facility] 110 [place] [address] PCP - General Internal Medicine 10/22/22WednesdayRandee LPN [address] [place] [address] Licensed Practical Nurse Family Medicine 12/29/22 06/09/24 Becca Campos, TURN DOWN ATTENDANT [address] [place] [address] Coating Operator Family Medicine 12/29/22 08/24/24 Hilary Frank, RN [address] [place] [address] Licensed Practical Nurse Family Medicine 06/09/24 07/21/24 Kaylen Moore LPN [address] 110 [place] [address] 07/21/24 documented as of this encounter
--- OUTSIDE RECORDS SUMMARY | 2025-01-30 09:55 | XMS_ITS | Encounter Summary ---
Author Organization [facility] Address [address] [facility] [place] [address] Care Team Providers Care Rn Perinatal Name Role Phone Shawn Barber MD Unavailable [phone] Shawn Barber MD Primary Care Provider [phone] Kaylen Moore LPN Unavailable Encounter Details Date Type Department Care Team (Late st Contact Info) Description 10/26/2024 Abstract [facility] [place] [facility] [address] [facility] 110 [place] [address] Shawn Barber MD [address] [place] [facility] 110 [place], [place] [phone] Social History Tobacco Use Types Packs/Day Years [...] How often do you attend chur or caodaism services? Never 12/06/2023 Do you [...] Recorded Patient Health Questionnaire-2 Score 0 10/23/2024 [facility] [place] of Occupat ional Health - Occupational Stress [...] any time in the past 12 m [facility], were you homeless or [...] Visit [facility] [place] Tompkins [address] [facility] 110 [place] [address] Shawn Barber MD [address] [place] [address] 03/15/2025 3:10 PM EST Office Visit [facility] [address] [facility] [address] [place] [phone] Colt Mendieta, DPM 3006 [facility] 5 [place] [address] documented as of this encounter Visit Diagnoses Not on filedocumented in this encounter Care Teams Rn Perinatal Relationship Specialty Start Date End Date Shawn Barber MD [address] [facility] 110 [place] [address] PCP - ACO Reach 09/24/22 Shawn Barber MD [address] [facility] 110 [place] [address] PCP - General Internal Medicine 10/22/22 Kaylen Moore LPN [address] [facility] 110 [place] [address] 07/21/24 documented as of this encounter
--- OUTSIDE RECORDS SUMMARY | 2025-01-30 09:55 | XMS_ITS | Encounter Summary ---
Author Organization [facility] Address [address] [facility] [place] [address] Care Team Providers Care Vaccinator Name Role Phone Shawn Barber MD Unavailable [phone] Shawn Barber MD Primary Care Provider [phone] Kaylen Moore LPN Unavailable Encounter Details Date Type Department Care Team (Late st Contact Info) Description 11/15/2024 Abstract [facility] [place] [facility] [address] [facility] 110 [place] [address] Shawn Barber MD [address] [facility] 110 [place], [place] [phone] Social History Tobacco Use Types Packs/Day Years [...] How often do you attend chur or yazdanism services? Never 12/06/2023 Do you belong to [...] Recorded Patient Health Questionnaire-2 Score 0 10/23/2024 [facility] [place] of Occupat ional Health - Occupational Stress [...] time in the past [address] [facility], were you homeless or living in [...] [facility] [place] Tompkins [address] [facility] 110 [place] [address] Shawn Barber MD [address] [place] [address] 03/15/2025 3:10 PM EST Office Visit [facility] [address] [facility] 120 [place] [phone] Colt Mendieta, DPM 3006 [facility] 5 [place] [address] documented as of this encounter Visit Diagnoses Not on filedocumented in this encounter Care Teams Vaccinator Relationship Specialty Start Date End Date Shawn Barber MD [address] [facility] 110 [place] [address] PCP - ACO Reach 09/24/22 Shawn Barber MD [address] [facility] 110 [place] [address] PCP - General Internal Medicine 10/22/22 Kaylen Moore LPN [address] [facility] 110 [place] [address] 07/21/24 documented as of this encounter
--- OUTSIDE RECORDS SUMMARY | 2025-01-30 09:55 | XMS_ITS | Encounter Summary ---
Author Organization [facility] Address [address] [facility] [place] [address] Care Team Providers Care Broadcast Field Supervisor Name Role Phone Shawn Barber MD Unavailable [phone] Shawn Barber MD Primary Care Provider Wednesday, Randee PATIENT COMPANION Unavailable [phone] Becca Campos MORTGAGE ACCOUNTING CLERK Unavailable [phone] Hilary Frank RN Unavailable Kaylen Moore PATIENT COMPANION Unavailable Encounter Details Date Type Department Care Team (Late st Contact Info) Description 11/11/2022 Abstract [facility] 112 [facility] 110 [place] [address] [place] 112 [facility] 110 [place], [place] [address] Social History Tobacco Use Types Packs/Day Years [...] Description 02/05/2025 2:00 PM EDT Office Visit [facility] [address] [place] [address] Shawn Barber MD [address] [place] [address] 03/15/2025 3:10 PM EST Office Visit [facility] [address] [place] [address] Colt Mendieta, DPChris 3006 [facility] 5 [place] [address] documented as of this encounter Visit Diagnoses Not on filedocumented in this encounter Care Teams Broadcast Field Supervisor Relationship Specialty Start Date End Date Shawn Barber MD [address] [place] [address] PCP - ACO Reach 09/24/22 Shawn Barber MD [address] [place] [address] PCP - General Internal Medicine 10/22/22WednesdayRandee LPN [address] [place] [address] Licensed Practical Nurse Family Medicine 12/29/22 06/09/24 Becca Campos, MORTGAGE ACCOUNTING CLERK [address] [place] [address] Valve Setter Family Medicine 12/29/22 08/24/24 Hilary Frank, RN [address] [place] [address] Licensed Practical Nurse Family Medicine 06/09/24 07/21/24 Kaylen Moore LPN [address] [place] [address] 07/21/24 documented as of this encounter
--- OUTSIDE RECORDS SUMMARY | 2025-01-30 09:55 | XMS_ITS | Encounter Summary ---
Author Organization [facility] Address [address] [place] [address] Care Team Providers Care Commercial Construction Project Manager Name Role Phone Shawn Barber MD Unavailable [phone] Shawn Barber MD Primary Care Provider [phone] Kaylen Moore LPN Unavailable Encounter Details Date Type Department Care Team (Late st Contact Info) Description 11/17/2024 Abstract [facility] POPULATION HEALTH [address] [place] [address] Kaylen Moore LPN [address] [place] [address] Social History Tobacco Use Types [...] attend chur ch or bahai services? Never 12/06/2023 Do you belong to [...] Recorded Patient Health Questionnaire-2 Score 0 11/21/2024 [facility] [place] of Occupat ional Health - Occupational Stress [...] EDT Office Visit [facility] [place] Tompkins 112 [facility] 110 [place] [address] Shawn Barber MD [address] [facility] 110 [place] [address] 03/15/2025 3:10 PM EST Office Visit [facility] [address] [facility] 120 [place] [address] Colt Mendieta, DPM 3006 [facility] 5 [place] [address] documented as of this encounter Visit Diagnoses Not on filedocumented in this encounter Care Teams Commercial Construction Project Manager Relationship Specialty Start Date End Date Shawn Barber MD [address] [facility] 110 [place] [address] PCP - ACO Reach 09/24/22 Shawn Barber MD [address] [facility] [address] [place] [address] PCP - General Internal Medicine 10/22/22 Kaylen Moore LPN [address] [facility] [address] [place] [address] 07/21/24 documented as of this encounter
--- OUTSIDE RECORDS SUMMARY | 2025-01-30 09:55 | XMS_ITS | Encounter Summary ---
Author Organization [facility] Address [address] [facility] [place] [address] Care Team Providers Care Air Gun Operator Name Role Phone Shawn Barber MD Unavailable [phone] Shawn Barber MD Primary Care Provider [phone] Wednesday, Randee FAST FOOD ATTENDANT Unavailable [phone] Becca Campos SALES ENGINEER ENGINEERED PRODUCTS Unavailable [phone] Hilary Frank RN Unavailable Kaylen Moore FAST FOOD ATTENDANT Unavailable Encounter Details Date Type Department Care Team (Late st Contact Info) Description 03/24/2023 Orders Only [facility] [place] [facility] [address] [place] [phone] A, Unknown Practice [address] [place] [id number] Social History Tobacco Use Types Packs/Day Years [...] often do you attend chur ch or yazidism services? Never 01/29/2023 Do you belong to [...] Recorded Patient Health Questionnaire-2 Score 1 11/25/2022 [facility] of Occupat ional Health - Occupational [...] Visit [facility] [place] [facility] [address] [facility] 110 [place] [address] Shawn Barber MD [address] [place] [address] 03/15/2025 3:10 PM EST Office Visit [facility] [address] [facility] 120 [place] [address] Colt Mendieta, DEVI 3006 [facility] 5 [place] [address] documented as of this encounter [...] on filedocumented in this encounter Care Teams Air Gun Operator Relationship Specialty Start Date End Date Shawn Barber MD [address] [facility] 110 [place] [address] PCP - ACO Reach 09/24/22 Shawn Barber MD [address] [facility] 110 [place] [address] PCP - General Internal Medicine 10/22/22WednesdayRandee LPN [address] [place] [address] Licensed Practical Nurse Family Medicine 12/29/22 06/09/24 Becca Campos LSW [address] [place] [address] Graining Operator Family Medicine 12/29/22 08/24/24 Hilary Frank, RN [address] [place] [address] Licensed Practical Nurse Family Medicine 06/09/24 07/21/24 Kaylen Moore LPN [address] [facility] 110 [place] [address] 07/21/24 documented as of this encounter
--- OUTSIDE RECORDS SUMMARY | 2025-01-30 09:55 | XMS_ITS | Encounter Summary ---
Author Organization [facility] Address [address] [facility] [place] [address] Care Team Providers Care Account Group Supervisor Name Role Phone Shawn Barber MD Unavailable [phone] Shawn Barber MD Primary Care Provider Wednesday, Randee PIN STICKER Unavailable [phone] Becca Campos BULL RIDER Unavailable Hilary Frank RN Unavailable [phone] Kaylen Moore PIN STICKER Unavailable Encounter Details Date Type Department Care Team (Late st Contact Info) Description 03/29/2023 Abstract [facility] [place] [facility] [address] [facility] 110 [place] [address] Shawn Barber MD 112 [facility] 110 [place], [place] [address] Social History Tobacco Use Types Packs/Day Years [...] any clubs o r organizations such as uatsdin groups, unions, fraternal or athletic groups, or [...] Questionnaire-2 Score 1 11/25/2022 [facility] - Occupational Stress Questionnaire Answer [...] Visit [facility] [place] Tompkins [address] [facility] 110 [place] [address] Shawn Barber MD [address] [facility] 110 [place] [address] 03/15/2025 3:10 PM EST Office Visit [facility] [address] [place] [address] Colt Mendieta, DPM 3006 [facility] 5 [place] [address] documented as of this encounter Visit Diagnoses Not on filedocumented in this encounter Care Teams Account Group Supervisor Relationship Specialty Start Date End Date Shawn Barber MD [address] [place] [address] PCP - ACO Reach 09/24/22 Shawn Barber MD [address] [facility] 110 [place] [address] PCP - General Internal Medicine 10/22/22WednesdayRandee LPN [address] [place] [address] Licensed Practical Nurse Family Medicine 12/29/22 06/09/24 Becca Campos, BULL RIDER [address] [place] [address] Senior Control Systems Engineer Family Medicine 12/29/22 08/24/24 Hilary Frank, RN [address] [place] [address] Licensed Practical Nurse Family Medicine 06/09/24 07/21/24 Kaylen Moore LPN [address] [place] [address] 07/21/24 documented as of this encounter
--- OUTSIDE RECORDS SUMMARY | 2025-01-30 09:55 | XMS_ITS | Encounter Summary ---
Author Organization [facility] Address [address] [facility] [place] [address] Care Team Providers Care Whitewasher Name Role Phone Shawn Barber MD Unavailable [phone] Shawn Barber MD Primary Care Provider [phone] Wednesday, Randee AS400 PROGRAMMER Unavailable [phone] Becca Campos CARDIOVASCULAR TECHNOLOGIST Unavailable Hilary Frank RN Unavailable [phone] Kaylen Moore AS400 PROGRAMMER Unavailable Encounter Details Date Type Department Care Team (Late st Contact Info) Description 10/12/2022 Abstract [facility] [place] Tompkins [address] [facility] 110 [place] [phone] Shawn Barber MD [address] [facility] 110 [place], [place] [address] Social History Tobacco Use Types Packs/Day Years [...] Office Visit [facility] [place] Tompkins [address] [facility] 110 [place] [address] Shawn Barber MD [address] [facility] 110 [place] [address] 03/15/2025 3:10 PM EST Office Visit [facility] [address] [place] [address] [place] [address] Colt Mendieta, DPM 3006 [facility] 5 [place] [address] documented as of this encounter Visit Diagnoses Not on filedocumented in this encounter Care Teams Whitewasher Relationship Specialty Start Date End Date Shawn Barber MD [address] [facility] 110 [place] [address] PCP - ACO Reach 09/24/22 Shawn Barber MD [address] [facility] 110 [place] [address] PCP - General Internal Medicine 10/22/22WednesdayRandee LPN [address] [facility] 110 [place] [address] Licensed Practical Nurse Family Medicine 12/29/22 06/09/24 Becca Campos LSW [address] [place] [address] Tailor Helper Family Medicine 12/29/22 08/24/24 Hilary Frank, RN [address] [place] [address] Licensed Practical Nurse Family Medicine 06/09/24 07/21/24 Kaylen Moore LPN [address] [facility] 110 [place] [address] 07/21/24 documented as of this encounter
--- OUTSIDE RECORDS SUMMARY | 2025-01-30 09:55 | XMS_ITS | Encounter Summary ---
Author Organization [facility] Address [address] [place] [address] Care Team Providers Care Vmware Administrator Name Role Phone Shawn Barber MD Unavailable [phone] Shawn Barber MD Primary Care Provider [phone] Wednesday, Randee VP OF DIGITAL MARKETING Unavailable [phone] Becca Campos PHARMACY DATA ANALYST Unavailable [phone] Hilary Frank RN Unavailable Kaylen Moore VP OF DIGITAL MARKETING Unavailable Encounter Details Date Type Department Care Team (Late st Contact Info) Description 03/22/2023 Orders Only [facility] [place] [facility] [address] [place] [phone] A, Unknown Practice [address] [place] [phone] Social History Tobacco Use Types Packs/Day Years [...] Recorded Patient Health Questionnaire-2 Score 1 11/25/2022 [facility] of Occupat ional Health - Occupational Stress [...] [place] [facility] [address] [facility] 110 [place] [address] Shawn Barber MD [address] [place] [address] 03/15/2025 3:10 PM EST Office Visit [facility] [address] [place] [address] Colt Mendieta DPM 3006 [facility] 5 [place] [address] documented as of this encounter Procedures Procedure [...] on filedocumented in this encounter Care Teams Vmware Administrator Relationship Specialty Start Date End Date Shawn Barber MD [address] [facility] 110 [place] [address] PCP - ACO Reach 09/24/22 Shawn Barber MD [address] [facility] 110 [place] [address] PCP - General Internal Medicine 10/22/22WednesdayRandee LPN [address] [place] [address] Licensed Practical Nurse Family Medicine 12/29/22 06/09/24 Becca Campos, PHARMACY DATA ANALYST [address] [place] [address] Jack Spinner Family Medicine 12/29/22 08/24/24 Hilary Frank, RN [address] [place] [address] Licensed Practical Nurse Family Medicine 06/09/24 07/21/24 Kaylen Moore LPN 112 [facility] 110 [place] [address] 07/21/24 documented as of this encounter
--- OUTSIDE RECORDS SUMMARY | 2025-01-30 09:55 | XMS_ITS | Encounter Summary ---
Author Organization [facility] Address [address] [facility] [place] [address] Care Team Providers Care Jammer Hooker Name Role Phone Shawn Barber MD Unavailable [phone] Shawn Barber MD Primary Care Provider [phone] Wednesday, Randee SERVICE CENTER SUPERVISOR Unavailable [phone] Becca Campos FACTORY HELPER Unavailable Hilary Frank RN Unavailable Kaylen Moore SERVICE CENTER SUPERVISOR Unavailable Encounter Details Date Type Department Care Team (Late st Contact Info) Description 03/24/2023 Abstract [facility] [place] [facility] 112 [facility] 110 [place] [address] Shawn Barber MD 112 [facility] 110 [place], [place] [id number] Social History Tobacco Use Types Packs/Day Years [...] attend chur ch or mandaeism services? Never 01/29/2023 Do you belong to [...] Score 1 11/25/2022 [facility] - Occupational [...] Office Visit [facility] [place] [facility] [address] [facility] 110 [place] [address] Shawn Barber MD 112 [facility] 110 [place] [address] 03/15/2025 3:10 PM EST Office Visit [facility] [address] [place] [address] Colt Mendieta, DPM 3006 [facility] 5 [place] [address] documented as of this encounter Visit Diagnoses Not on filedocumented in this encounter Care Teams Jammer Hooker Relationship Specialty Start Date End Date Shawn Barber MD [address] [place] [address] PCP - ACO Reach 09/24/22 Shawn Barber MD [address] [facility] 110 [place] [address] PCP - General Internal Medicine 10/22/22WednesdayRandee LPN [address] [place] [address] Licensed Practical Nurse Family Medicine 12/29/22 06/09/24 Becca Campos, FACTORY HELPER [address] [place] [address] Claims Sorter Family Medicine 12/29/22 08/24/24 Hilary Frank, RN [address] [place] [address] Licensed Practical Nurse Family Medicine 06/09/24 07/21/24 Kaylen Moore LPN [address] [place] [address] 07/21/24 documented as of this encounter
--- OUTSIDE RECORDS SUMMARY | 2025-01-30 09:55 | XMS_ITS | Encounter Summary ---
Author Organization [facility] Address [address] [facility] [place] [address] Care Team Providers Care Analytical Technician Name Role Phone Shawn Barber MD Unavailable [phone] Shawn Barber MD Primary Care Provider [phone] Wednesday, Randee SALES RECORD CLERK Unavailable [phone] Becca Campos PHOTOGRAPHIC RESTORER Unavailable Hilary Frank RN Unavailable [phone] Kaylen Moore SALES RECORD CLERK Unavailable Encounter Details Date Type Department Care Team (Late st Contact Info) Description 04/07/2023 Abstract [facility] [place] [facility] 112 [facility] 110 [place] [address] Shawn Barber MD 112 [facility] 110 [place], [place] [id number] Social History Tobacco Use Types Packs/Day Years [...] 11/25/2022 [facility] [...] [facility] [address] [place] [address] Shawn Barber MD [address] [place] [facility] 110 [place] [address] 03/15/2025 3:10 PM EST Office Visit [facility] [address] [place] [address] Colt Mendieta, DPM 3006 [facility] 5 [place] [address] documented as of this encounter Visit Diagnoses Not on filedocumented in this encounter Care Teams Analytical Technician Relationship Specialty Start Date End Date Shawn Barber MD [address] [place] [address] PCP - ACO Reach 09/24/22 Shawn Barber MD [address] [facility] 110 [place] [address] PCP - General Internal Medicine 10/22/22WednesdayRandee LPN [address] [place] [address] Licensed Practical Nurse Family Medicine 12/29/22 06/09/24 Becca Campos, PHOTOGRAPHIC RESTORER [address] [place] [address] Chair Upholsterer Family Medicine 12/29/22 08/24/24 Hilary Frank, RN [address] [place] [address] Licensed Practical Nurse Family Medicine 06/09/24 07/21/24 Kaylen Moore LPN [address] [place] [address] 07/21/24 documented as of this encounter
--- OUTSIDE RECORDS SUMMARY | 2025-01-30 09:55 | XMS_ITS | Encounter Summary ---
Author Organization [facility] Address [address] [facility] [place] [address] Care Team Providers Care Chin Strap Maker Name Role Phone Shawn Barber MD Unavailable [phone] Shawn Barber MD Primary Care Provider [phone] Kaylen Moore LPN Unavailable Encounter Details Date Type Department Care Team (Late st Contact Info) Description 10/20/2024 Abstract [facility] [place] [facility] [address] [facility] 110 [place] [id number] Shawn Barber MD 112 [facility] 110 [place], [place] [address] Social History Tobacco Use Types Packs/Day Years [...] How often do you attend chur or advent services? Never 12/06/2023 Do you belong to [...] Recorded Patient Health Questionnaire-2 Score 0 10/23/2024 [facility] [place] of Occupat ional Health - Occupational [...] No 12/06/2023 Housing Stability Vital Sign Answer Mednez e Recorded In the last 12 months, [...] pleasure in doing things Not at all 10/23/2024 1:49 PM EDT Ginger Jose LP N Feeling down, depressed, or hopeless Not at all 10/23/2024 1:49 PM EDT Ginger Jose LP N Patient Health Questionnaire -2 Score 0 10/23/2024 1:49 PM EDT Ginger Jose LP N documented as of this encounter Plan of Treatment Upcoming Encounters Date Type Department Care Team (Late st Contact Info) Description 02/05/2025 2:00 PM EDT Office Visit [facility] [place] [facility] [address] [place] [address] Shawn Barber MD [address] [place] [address] 03/15/2025 3:10 PM EST Office Visit [facility] [address] [place] [address] Colt Mendieta, DPM 3006 [facility] 5 [place] [address] documented as of this encounter Visit Diagnoses Not on filedocumented in this encounter Care Teams Chin Strap Maker Relationship Specialty Start Date End Date Shawn Barber MD [address] [place] [address] PCP - ACO Reach 09/24/22 Shawn Barber MD [address] [place] [address] PCP - General Internal Medicine 10/22/22 Kaylen Moore LPN [address] [place] [address] 07/21/24 documented as of this encounter
--- OUTSIDE RECORDS SUMMARY | 2025-01-30 09:55 | XMS_ITS | Encounter Summary ---
Author Organization [facility] Address [address] [facility] [place] [address] Care Team Providers Care Exercise Manager Name Role Phone Shawn Barber MD Unavailable [phone] Shawn Barber MD Primary Care Provider Wednesday, Randee PROPERTY ACCOUNTANT Unavailable [phone] Becca Campos FIREFIGHTER MARINE Unavailable [phone] Hilary Frank RN Unavailable Kaylen Moore PROPERTY ACCOUNTANT Unavailable Encounter Details Date Type Department Care Team (Late st Contact Info) Description 10/13/2022 Orders Only [facility] [place] [facility] [address] [place] [phone] Shawn Barber MD [address] [place], [place] [address] Social History Tobacco Use Types Packs/Day Years [...] Tompkins [address] [place] [address] Shawn Barber MD [address] [place] [address] 03/15/2025 3:10 PM EST Office Visit [facility] [address] [place] [address] Colt Mendieta, DPM 3006 [facility] 5 [place] [address] documented as of this encounter Procedures Procedure [...] on filedocumented in this encounter Care Teams Exercise Manager Relationship Specialty Start Date End Date Shawn Barber MD [address] [place] [address] PCP - ACO Reach 09/24/22 Shawn Barber MD [address] [place] [address] PCP - General Internal Medicine 10/22/22WednesdayRandee LPN [address] [place] [address] Licensed Practical Nurse Family Medicine 12/29/22 06/09/24 Becca Campos, FIREFIGHTER MARINE [address] [place] [address] Rn Clinical Trials Family Medicine 12/29/22 08/24/24 Hilary Frank, RN [address] [place] [address] Licensed Practical Nurse Family Medicine 06/09/24 07/21/24 Kaylen Moore LPN [address] [place] [address] 07/21/24 documented as of this encounter
--- OUTSIDE RECORDS SUMMARY | 2025-01-30 09:55 | XMS_ITS | Encounter Summary ---
Author Organization [facility] Address [address] [facility] [place] [address] Care Team Providers Care Specialized Developer Name Role Phone Shawn Barber MD Unavailable [phone] Shawn Barber MD Primary Care Provider Wednesday, Randee CERAMIC TILER Unavailable [phone] Becca Campos [facility] Unavailable Hilary Frank RN Unavailable Kaylen Moore CERAMIC TILER Unavailable Encounter Details Date Type Department Care Team (Late st Contact Info) Description 10/09/2022 Orders Only [facility] [place] [facility] [address] [place] [phone] Shawn Barber MD [address] [place], [place] [address] Social History Tobacco Use Types Packs/Day Years [...] Tompkins [address] [place] [address] Shawn Barber MD [address] [place] [address] 03/15/2025 3:10 PM EST Office Visit [facility] [address] [place] [address] Colt Mendieta, DPM 3006 [facility] 5 [place] [address] documented as of this encounter Procedures Procedure [...] on filedocumented in this encounter Care Teams Specialized Developer Relationship Specialty Start Date End Date Shawn Barber MD [address] [place] [address] PCP - ACO Reach 09/24/22 Shawn Barber MD [address] [place] [address] PCP - General Internal Medicine 10/22/22WednesdayRandee LPN [address] [place] [address] Licensed Practical Nurse Family Medicine 12/29/22 06/09/24 Becca Campos, [facility] HOME HEALTH [address] [place] [address] Hospital Pharmacy Technician Family Medicine 12/29/22 08/24/24 Hilary Frank, RN [address] [place] [address] Licensed Practical Nurse Family Medicine 06/09/24 07/21/24 Kaylen Moore LPN 112 [place] [address] 07/21/24 documented as of this encounter
--- OUTSIDE RECORDS SUMMARY | 2025-01-30 09:55 | XMS_ITS | Encounter Summary ---
Author Organization [facility] Address [address] [facility] [place] [address] Care Team Providers Care Ophthalmic Technologist Name Role Phone Shawn Barber MD Unavailable Shawn Barber MD Primary Care Provider [phone] Wednesday, Randee DIGITAL SALES MANAGER Unavailable Becca Campos SCROLL SAW OPERATOR Unavailable Hilary Frank RN Unavailable [phone] Kaylen Moore DIGITAL SALES MANAGER Unavailable Encounter Details Date Type Department Care Team (Late st Contact Info) Description 03/23/2023 Orders Only [facility] [place] [facility] [address] [place] [phone] A, Unknown Practice [address] [place] [id number] Social History Tobacco Use Types Packs/Day Years [...] attend chur ch or anglican services? Never 01/29/2023 Do you belong to [...] Recorded Patient Health Questionnaire-2 Score 1 11/25/2022 [facility] of Occupat ional Health - Occupational [...] Visit [facility] [place] [facility] 112 [facility] [facility] 110 [place] [address] Shawn Barber MD [address] [place] [address] 03/15/2025 3:10 PM EST Office Visit [facility] [address] [facility] 120 [place] [address] Colt Mendieta, DEVI 3006 [facility] 5 [place] [address] documented as of this encounter Procedures Procedure Name Priority Date/Time Associated Diagnosis Comments ELECTROCARDIOGRAM REPORT Routine 023 9:05 AM EST documented in this encounter Results * Electrocardiogram Report (03/21/2023 9:05 AM EST) us Unknown Practice A IN CLINIC/BEDSIDE ORDERABLES Final Result documented in this encounter Visit Diagnoses Not on filedocumented in this encounter Care Teams Ophthalmic Technologist Relationship Specialty Start Date End Date Shawn Barber MD [address] [facility] 110 [place] [address] PCP - ACO Reach 09/24/22 Shawn Barber MD [address] [facility] 110 [place] [address] PCP - General Internal Medicine 10/22/22WednesdayRandee LPN 112 [facility] 110 [place] [address] Licensed Practical Nurse Family Medicine 12/29/22 06/09/24 Becca Campos, SCROLL SAW OPERATOR [address] [place] [address] Horticultural Farmworker Family Medicine 12/29/22 08/24/24 Hilary Frank, RN [address] [place] [address] Licensed Practical Nurse Family Medicine 06/09/24 07/21/24 Kaylen Moore LPN [address] [facility] 110 [place] [address] 07/21/24 documented as of this encounter
--- OUTSIDE RECORDS SUMMARY | 2025-01-30 09:56 | XMS_ITS | Encounter Summary ---
Author Organization [facility] Address [address] [facility] [place] [address] Care Team Providers Care Compound Worker Name Role Phone Shawn Barber MD Unavailable [phone] Shawn Barber MD Primary Care Provider Wednesday, Randee APPAREL FASHION DESIGNER Unavailable [phone] Becca Campos FIELD OPERATIONS FARM MANAGER Unavailable Hilary Frank RN Unavailable [phone] Kaylen Moore APPAREL FASHION DESIGNER Unavailable Encounter Details Date Type Department Care Team (Late st Contact Info) Description 05/13/2023 Abstract [facility] [place] [facility] [address] [facility] 110 [place] [address] Shawn Barber MD 112 [facility] 110 [place] [address] Social History Tobacco Use Types [...] often do you attend chur ch or spiritism services? Never 01/29/2023 Do you belong to [...] Office Visit [facility] [place] Tomp[facility] [address] [facility] 110 [place] [address] Shawn Barber MD 112 [facility] 110 [place] [address] 03/15/2025 3:10 PM EST Office Visit [facility] [address] [place] [address] Colt Mendieta, DPChris 3006 [facility] 5 [place] [address] documented as of this encounter Visit Diagnoses Not on filedocumented in this encounter Care Teams Compound Worker Relationship Specialty Start Date End Date Shawn Barber MD [address] [place] [address] PCP - ACO Reach 09/24/22 Shawn Barber MD [address] [facility] 110 [place] [address] PCP - General Internal Medicine 10/22/22WednesdayRandee LPN [address] [place] [address] Licensed Practical Nurse Family Medicine 12/29/22 06/09/24 Becca Campos, FIELD OPERATIONS FARM MANAGER [address] [place] [address] Court Interpreter Family Medicine 12/29/22 08/24/24 Hilary Frank, RN [address] [place] [address] Licensed Practical Nurse Family Medicine 06/09/24 07/21/24 Kaylen Moore LPN [address] [place] [address] 07/21/24 documented as of this encounter
--- OUTSIDE RECORDS SUMMARY | 2025-01-30 09:56 | XMS_ITS | Encounter Summary ---
Author Organization [facility] Address [address] [facility] [place] [address] Care Team Providers Care Exchange Administrator Name Role Phone Shawn Barber MD Unavailable [phone] Shawn Barber MD Primary Care Provider Wednesday, Randee LAY OUT MACHINE OPERATOR Unavailable [phone] Becca Campos INCOME TAX MANAGER Unavailable Hilary Frank RN Unavailable Kaylen Moore LAY OUT MACHINE OPERATOR Unavailable Encounter Details Date Type Department Care Team (Late st Contact Info) Description 05/17/2023 Abstract [facility] [place] [facility] [address] [facility] 110 [place] [address] Shawn Barber MD 112 [facility] 110 [place] [address] Social History Tobacco Use Types [...] Recorded Patient Health Questionnaire-2 Score 1 11/25/2022 [facility] of Occupat ional Health - Occupational [...] EDT Office Visit [facility] [place] [facility] 112 [facility] 110 [place] [address] Shawn Barber MD 112 [facility] 110 [place] [address] 03/15/2025 3:10 PM EST Office Visit [facility] [address] [place] [address] Colt Mendieta, DPChris 3006 [facility] 5 [place] [address] documented as of this encounter Visit Diagnoses Not on filedocumented in this encounter Care Teams Exchange Administrator Relationship Specialty Start Date End Date Shawn Barber MD [address] [place] [address] PCP - ACO Reach 09/24/22 Shawn Barber MD [address] [facility] 110 [place] [address] PCP - General Internal Medicine 10/22/22WednesdayRandee LPN [address] [place] [address] Licensed Practical Nurse Family Medicine 12/29/22 06/09/24 Becca Campos, INCOME TAX MANAGER [address] [place] [address] Glove Parts Inspector Family Medicine 12/29/22 08/24/24 Hilary Frank, RN [address] [place] [address] Licensed Practical Nurse Family Medicine 06/09/24 07/21/24 Kaylen Moore LPN [address] [place] [address] 07/21/24 documented as of this encounter
--- OUTSIDE RECORDS SUMMARY | 2025-01-30 09:56 | XMS_ITS | Encounter Summary ---
Author Organization [facility] Address [address] [facility] [place] [address] Care Team Providers Care Second Operator Name Role Phone Shawn Barber MD Unavailable [phone] Shawn Barber MD Primary Care Provider Becca Campos AIRCRAFT MAINTENANCE ENGINEER Unavailable [phone] Hilary Frank RN Unavailable [phone] Kaylen Moore CASTING PLUG ASSEMBLER Unavailable Encounter Details Date Type Department Care Team (Late st Contact Info) Description 06/14/2024 Abstract [facility] [place] [facility] [address] [facility] 110 [place] [address] Shawn Barber MD 112 [facility] 110 [place], [place] [address] Social History Tobacco Use Types Packs/Day Years [...] attend chur ch or restorationist services? Never 12/06/2023 Do you belong to [...] Recorded Patient Health Questionnaire-2 Score 1 11/25/2022 [facility] - Occupational Stress Questionnaire [...] 2:00 PM EDT Office Visit [facility] [place] [facility] [address] [facility] 110 [place] [address] Shawn Barber MD [address] [facility] 110 [place] [address] 03/15/2025 3:10 PM EST Office Visit [facility] [address] [facility] 120 [place] [address] Colt Mendieta, DPM 3006 [facility] 5 [place] [address] documented as of this encounter Visit Diagnoses Not on filedocumented in this encounter Care Teams Second Operator Relationship Specialty Start Date End Date Shawn Barber MD [address] [facility] [address] [place] [address] PCP - ACO Reach 09/24/22 Shawn Barber MD [address] [facility] [address] [place] [address] PCP - General Internal Medicine 10/22/22 Becca Campos LSW [address] [place] [address] Content Development Specialist Family Medicine 12/29/22 08/24/24 Hilary Frank, RN [address] [place] [address] Licensed Practical Nurse Family Medicine 06/09/24 07/21/24 Kaylen Moore LPN [address] [facility] [address] [place] [address] 07/21/24 documented as of this encounter
--- OUTSIDE RECORDS SUMMARY | 2025-01-30 09:56 | XMS_ITS | Encounter Summary ---
Author Organization [facility] Address [address] [facility] [place] [address] Care Team Providers Care Clay Digger Name Role Phone Shawn Barber MD Unavailable [phone] Shawn Barber MD Primary Care Provider [phone] Wednesday, Randee GUEST HISTORY CLERK Unavailable [phone] Becca Campos DEVELOPMENT DIRECTOR Unavailable [phone] Hilary Frank RN Unavailable Kaylen Moore GUEST HISTORY CLERK Unavailable Encounter Details Date Type Department Care Team (Late st Contact Info) Description 05/10/2024 Abstract [facility] [place] [facility] 112 [facility] 110 [place] [address] Shawn Barber MD 112 [facility] 110 [place] [address] Social History Tobacco Use Types [...] Patient Health Questionnaire-2 Score 1 11/25/2022 [facility] of Occupat ional Health - Occupational [...] time in the past 12 m [facility], were you homeless or living in [...] [address] [place] [address] Shawn Barber MD [address] [place] [address] 03/15/2025 3:10 PM EST Office Visit [facility] [address] [place] [address] Colt Mendieta, DPM 3[address] [facility] 5 [place] [address] documented as of this encounter Visit Diagnoses Not on filedocumented in this encounter Care Teams Clay Digger Relationship Specialty Start Date End Date Shawn Barber MD [address] [place] [address] PCP - ACO Reach 09/24/22 Shawn Barber MD [address] [place] [address] PCP - General Internal Medicine 10/22/22WednesdayRandee LPN [address] [place] [address] Licensed Practical Nurse Family Medicine 12/29/22 06/09/24 Becca Campos LSW [address] [place] [address] Head Resident Family Medicine 12/29/22 08/24/24 Hilary Frank, RN [address] [place] [address] Licensed Practical Nurse Family Medicine 06/09/24 07/21/24 Kaylen Moore LPN [address] [place] [address] 07/21/24 documented as of this encounter
--- OUTSIDE RECORDS SUMMARY | 2025-01-30 09:56 | XMS_ITS | Encounter Summary ---
Author Organization [facility] Address [address] [facility] [place] [address] Care Team Providers Care Games Dealer Name Role Phone Shawn Barber MD Unavailable [phone] Shawn Barber MD Primary Care Provider [phone] Wednesday, Randee AIR BRUSH DECORATOR Unavailable [phone] Becca Campos MANAGER HARBOR Unavailable Hilary Frank RN Unavailable Kaylen Moore AIR BRUSH DECORATOR Unavailable Encounter Details Date Type Department Care Team (Late st Contact Info) Description 05/12/2023 Abstract [facility] [place] [facility] 112 [facility] 110 [place] [address] Shawn Barber MD 112 [facility] 110 [place] [address] Social History Tobacco Use Types [...] Questionnaire-2 Score 1 11/25/2022 [facility] of Occupat ional Health - [...] Office Visit [facility] [place] [facility] 112 [facility] 110 [place] [address] Shawn Barber MD 112 [facility] 110 [place] [address] 03/15/2025 3:10 PM EST Office Visit [facility] [address] [place] [address] Colt Mendieta, DPChris 3006 [facility] 5 [place] [address] documented as of this encounter Visit Diagnoses Not on filedocumented in this encounter Care Teams Games Dealer Relationship Specialty Start Date End Date Shawn Barber MD [address] [place] [address] PCP - ACO Reach 09/24/22 Shawn Barber MD [address] [facility] 110 [place] [address] PCP - General Internal Medicine 10/22/22WednesdayRandee LPN [address] [place] [address] Licensed Practical Nurse Family Medicine 12/29/22 06/09/24 Becca Campos, MANAGER HARBOR [address] [place] [address] Yarding Supervisor Family Medicine 12/29/22 08/24/24 Hilary Frank, RN [address] [place] [address] Licensed Practical Nurse Family Medicine 06/09/24 07/21/24 Kaylen Moore LPN [address] [place] [address] 07/21/24 documented as of this encounter
--- OUTSIDE RECORDS SUMMARY | 2025-01-30 09:56 | XMS_ITS | Encounter Summary ---
Author Organization [facility] Address [address] [facility] [place] [address] Care Team Providers Care Batch Or Continuous Still Operator Name Role Phone Shawn Barber MD Unavailable [phone] Shawn Barber MD Primary Care Provider [phone] Wednesday, Randee AR MANAGER Unavailable [phone] Becca Campos RECHARGER Unavailable [phone] Hilary Frank RN Unavailable Kaylen Moore AR MANAGER Unavailable Encounter Details Date Type Department Care Team (Late st Contact Info) Description 06/23/2023 Abstract [facility] [place] [facility] [address] [facility] 110 [place] [address] Shawn Barber MD 112 [facility] 110 [place] [address] Social History Tobacco Use Types [...] Recorded Patient Health Questionnaire-2 Score 1 11/25/2022 [facility] of Occupat ional Health - Occupational [...] 112 [facility] 110 [place] [address] Shawn Barber MD 112 [facility] 110 [place] [address] 03/15/2025 3:10 PM EST Office Visit [facility] [address] [place] [address] Colt Mendieta, DPChris 3006 [facility] 5 [place] [address] documented as of this encounter Visit Diagnoses Not on filedocumented in this encounter Care Teams Batch Or Continuous Still Operator Relationship Specialty Start Date End Date Shawn Barber MD [address] [place] [address] PCP - ACO Reach 09/24/22 Shawn Barber MD [address] [facility] 110 [place] [address] PCP - General Internal Medicine 10/22/22WednesdayRandee LPN [address] [place] [address] Licensed Practical Nurse Family Medicine 12/29/22 06/09/24 Becca Campos, RECHARGER [address] [place] [address] Delivery Of Shopping News Family Medicine 12/29/22 08/24/24 Hilary Frank, RN [address] [place] [address] Licensed Practical Nurse Family Medicine 06/09/24 07/21/24 Kaylen Moore LPN [address] [place] [address] 07/21/24 documented as of this encounter
--- OUTSIDE RECORDS SUMMARY | 2025-01-30 09:56 | XMS_ITS | Encounter Summary ---
Author Organization [facility] Address [address] [facility] [place] [address] Care Team Providers Care Chief Clerk Name Role Phone Shawn Barber MD Unavailable [phone] Shawn Barber MD Primary Care Provider Wednesday, Randee HOUSEKEEPER CAREGIVER Unavailable [phone] Becca Campos MANAGER MARKETING COMMUNICATION Unavailable Hilary Frank RN Unavailable [phone] Kaylen Moore HOUSEKEEPER CAREGIVER Unavailable Encounter Details Date Type Department Care Team (Late st Contact Info) Description 05/12/2023 Abstract [facility] [place] [facility] 112 [facility] 110 [place] [address] Shawn Barber MD 112 [facility] 110 [place] [address] Social History Tobacco Use Types [...] Recorded Patient Health Questionnaire-2 Score 1 11/25/2022 [facility] of Occupat ional Health - [...] EDT Office Visit [facility] [place] [facility] 112 [facility] 110 [place] [address] Shawn Barber MD 112 [facility] 110 [place] [address] 03/15/2025 3:10 PM EST Office Visit [facility] [address] [place] [address] Colt Mendieta, DPChris 3006 [facility] 5 [place] [address] documented as of this encounter Visit Diagnoses Not on filedocumented in this encounter Care Teams Chief Clerk Relationship Specialty Start Date End Date Shawn Babrer MD [address] [place] [address] PCP - ACO Reach 09/24/22 Shawn Barber MD [address] [facility] 110 [place] [address] PCP - General Internal Medicine 10/22/22WednesdayRandee LPN [address] [place] [address] Licensed Practical Nurse Family Medicine 12/29/22 06/09/24 Becca Campos, MANAGER MARKETING COMMUNICATION [address] [place] [address] Toddler Nanny Family Medicine 12/29/22 08/24/24 Hilary Frank, RN [address] [place] [address] Licensed Practical Nurse Family Medicine 06/09/24 07/21/24 Kaylen Moore LPN [address] [place] [address] 07/21/24 documented as of this encounter
--- OUTSIDE RECORDS SUMMARY | 2025-01-30 09:56 | XMS_ITS | Encounter Summary ---
Author Organization [facility] Address [address] [facility] [place] [address] Care Team Providers Care Animal Nutritionist Name Role Phone Shawn Barber MD Unavailable [phone] Shawn Barber MD Primary Care Provider [phone] Kaylen Moore LPN Unavailable Encounter Details Date Type Department Care Team (Late st Contact Info) Description 11/07/2024 Abstract [facility] [place] [facility] [address] [facility] 110 [place] [address] Shawn Barber MD [address] [facility] 110 [place], [place] [address] Social History Tobacco Use Types [...] How often do you attend chur or restorationist services? Never 12/06/2023 Do you [...] Recorded Patient Health Questionnaire-2 Score 0 10/23/2024 [facility] of Occupat ional Health - Occupational Stress [...] time in the past 12 m [facility], were you homeless or living in [...] Visit [facility] [place] [facility] [address] [facility] 110 [place] [address] Shawn Barber MD [address] [place] [address] 03/15/2025 3:10 PM EST Office Visit [facility] [address] [facility] 120 [place] [address] Colt Mendieta, DPM 3006 [facility] 5 [place] [address] documented as of this encounter Visit Diagnoses Not on filedocumented in this encounter Care Teams Animal Nutritionist Relationship Specialty Start Date End Date Shawn Barber MD [address] [facility] 110 [place] [address] PCP - ACO Reach 09/24/22 Shawn Barber MD [address] [facility] 110 [place] [address] PCP - General Internal Medicine 10/22/22 Kaylen Moore LPN [address] [facility] 110 [place] [address] 07/21/24 documented as of this encounter
--- OUTSIDE RECORDS SUMMARY | 2025-01-30 09:56 | XMS_ITS | Encounter Summary ---
Author Organization [facility] Address [address] [place] [address] Care Team Providers Care Net Software Developer Name Role Phone Shawn Barber MD Unavailable [phone] Shawn Barber MD Primary Care Provider [phone] Becca Campos ENERGY EFFICIENCY ENGINEER Unavailable [phone] Hilary Frank RN Unavailable [phone] Kaylen Moore NUT SHELLER MACHINE OPERATOR Unavailable Encounter Details Date Type Department Care Team (Late st Contact Info) Description 06/15/2024 Abstract [facility] [place] [facility] [address] [facility] 110 [place] [address] Shawn Barber MD 112 [facility] 110 [place], [place] [address] Social History Tobacco Use Types Packs/Day Years [...] attend chur ch or yazidism services? Never 12/06/2023 Do you belong to [...] Recorded Patient Health Questionnaire-2 Score 1 11/25/2022 [facility] - Occupational Stress Questionnaire [...] any time in the past 12 m [facility], were you homeless or living in a [...] 2:00 PM EDT Office Visit [facility] [place] [facility] [address] [facility] 110 [place] [address] Shawn Barber MD [address] [facility] 110 [place] [address] 03/15/2025 3:10 PM EST Office Visit [facility] [address] [facility] 120 [place] [address] Colt Mendieta, DPM 3006 [facility] 5 [place] [address] documented as of this encounter Visit Diagnoses Not on filedocumented in this encounter Care Teams Net Software Developer Relationship Specialty Start Date End Date Shawn Barber MD [address] [facility] 110 [place] [address] PCP - ACO Reach 09/24/22 Shawn Barber MD [address] [facility] 110 [place] [address] PCP - General Internal Medicine 10/22/22 Becca Campos LSW [address] [place] [address] Instructor Physical Education Family Medicine 12/29/22 08/24/24 Hilary Frank, RN [address] [place] [address] Licensed Practical Nurse Family Medicine 06/09/24 07/21/24 Kaylen Moore LPN [address] [facility] 110 [place] [address] 07/21/24 documented as of this encounter
--- OUTSIDE RECORDS SUMMARY | 2025-01-30 09:56 | XMS_ITS | Encounter Summary ---
Author Organization [facility] Address [address] [place] [address] Care Team Providers Care Pump Installer Name Role Phone Shawn Barber MD Unavailable [phone] Shawn Barber MD Primary Care Provider Wednesday, Randee UTILITY MANAGER Unavailable [phone] Becca Campos BRUSHER OPERATOR Unavailable Hilary Frank RN Unavailable Kaylen Moore UTILITY MANAGER Unavailable Encounter Details Date Type Department Care Team (Late st Contact Info) Description 05/24/2023 Abstract [facility] [place] [facility] 112 [facility] 110 [place] [address] Shawn Barber MD 112 [facility] 110 [place] [address] Social [...] EDT Office Visit [facility] [place] [facility] 112 [facility] 110 [place] [address] Shawn Barber MD 112 [facility] 110 [place] [address] 03/15/2025 3:10 PM EST Office Visit [facility] [address] [place] [address] Colt Mendieta, DPChris 3006 [facility] 5 [place] [address] documented as of this encounter Visit Diagnoses Not on filedocumented in this encounter Care Teams Pump Installer Relationship Specialty Start Date End Date Shawn Barber MD [address] [place] [address] PCP - ACO Reach 09/24/22 Shawn Barber MD [address] [facility] 110 [place] [address] PCP - General Internal Medicine 10/22/22WednesdayRandee LPN [address] [place] [address] Licensed Practical Nurse Family Medicine 12/29/22 06/09/24 Becca Campos, BRUSHER OPERATOR [address] [place] [address] Parachute Folder Family Medicine 12/29/22 08/24/24 Hilary Frank, RN [address] [place] [address] Licensed Practical Nurse Family Medicine 06/09/24 07/21/24 Kaylen Moore LPN [address] [place] [address] 07/21/24 documented as of this encounter
--- OUTSIDE RECORDS SUMMARY | 2025-01-30 09:56 | XMS_ITS | Encounter Summary ---
Author Organization [facility] Address [address] [facility] [place] [address] Care Team Providers Care Set And Exhibit Designer Name Role Phone Shawn Barber MD Unavailable [phone] Shawn Barber MD Primary Care Provider [phone] Wednesday, Randee SERVICE PARTS COORDINATOR Unavailable [phone] Becca Campos INSURANCE AGENTS SUPERVISOR Unavailable Hilary Frank RN Unavailable Kaylen Moore SERVICE PARTS COORDINATOR Unavailable Encounter Details Date Type Department Care Team (Late st Contact Info) Description 05/12/2023 Abstract [facility] [place] [facility] 112 [facility] 110 [place] [address] Shawn Barber MD 112 [facility] 110 [place] [address] Social History Tobacco Use Types [...] EDT Office Visit [facility] [place] [facility] 112 [facility] 110 [place] [address] Shawn Barber MD 112 [facility] 110 [place] [address] 03/15/2025 3:10 PM EST Office Visit [facility] [address] [place] [address] Colt Mendieta, DPChris 3006 [facility] 5 [place] [address] documented as of this encounter Visit Diagnoses Not on filedocumented in this encounter Care Teams Set And Exhibit Designer Relationship Specialty Start Date End Date Shawn Barber MD [address] [place] [address] PCP - ACO Reach 09/24/22 Shawn Barber MD [address] [facility] 110 [place] [address] PCP - General Internal Medicine 10/22/22WednesdayRandee LPN [address] [place] [address] Licensed Practical Nurse Family Medicine 12/29/22 06/09/24 Becca Campos, INSURANCE AGENTS SUPERVISOR [address] [place] [address] Bridge Opener Family Medicine 12/29/22 08/24/24 Hilary Frank, RN [address] [place] [address] Licensed Practical Nurse Family Medicine 06/09/24 07/21/24 Kaylen Moore LPN [address] [place] [address] 07/21/24 documented as of this encounter
--- OUTSIDE RECORDS SUMMARY | 2025-01-30 09:56 | XMS_ITS | Encounter Summary ---
Author Organization [facility] Address [address] [facility] [place] [address] Care Team Providers Care Senior Payroll Manager Name Role Phone Shawn Barber MD Unavailable [phone] Shawn Barber MD Primary Care Provider Wednesday, Randee OFFSET MACHINE OPERATOR Unavailable [phone] Becca Campos INSPECTOR AND CLERK Unavailable Hilary Frank RN Unavailable Kaylen Moore OFFSET MACHINE OPERATOR Unavailable Encounter Details Date Type Department Care Team (Late st Contact Info) Description 05/12/2023 Abstract [facility] [place] [facility] 112 [facility] 110 [place] [address] Shawn Barber MD 112 [facility] 110 [place] [address] Social History Tobacco Use Types [...] EDT Office Visit [facility] [place] [facility] 112 [facility] [address] [place] [address] Shawn Barber MD 112 [facility] 110 [place] [address] 03/15/2025 3:10 PM EST Office Visit [facility] [address] [place] [address] Colt Mendieta, DPChris 3006 [facility] 5 [place] [address] documented as of this encounter Visit Diagnoses Not on filedocumented in this encounter Care Teams Senior Payroll Manager Relationship Specialty Start Date End Date Shawn Barber MD [address] [place] [address] PCP - ACO Reach 09/24/22 Shawn Barber MD [address] [facility] 110 [place] [address] PCP - General Internal Medicine 10/22/22WednesdayRandee LPN [address] [place] [address] Licensed Practical Nurse Family Medicine 12/29/22 06/09/24 Becca Campos, INSPECTOR AND CLERK [address] [place] [address] Planer Operator / Grader Family Medicine 12/29/22 08/24/24 Hilary Frank, RN [address] [place] [address] Licensed Practical Nurse Family Medicine 06/09/24 07/21/24 Kaylen Moore LPN [address] [place] [address] 07/21/24 documented as of this encounter
--- OUTSIDE RECORDS SUMMARY | 2025-01-30 09:56 | XMS_ITS | Encounter Summary ---
Author Organization [facility] Address [address] [facility] [place] [address] Care Team Providers Care Clay Molder Name Role Phone Shawn Barber MD Unavailable [phone] Shawn Barber MD Primary Care Provider [phone] Wednesday, Randee WILDLIFE REHABILITATOR Unavailable [phone] Becca Campos TISSUE PACKER Unavailable Hilary Frank RN Unavailable [phone] Kaylen Moore WILDLIFE REHABILITATOR Unavailable Encounter Details Date Type Department Care Team (Late st Contact Info) Description 06/03/2023 Orders Only [facility] [place] [facility] [address] [place] [address] [place] [address] A, Unknown Practice [address] [place], [place] [address] Social History Tobacco Use Types Packs/Day Years [...] often do you attend chur ch or taoist services? Never 01/29/2023 Do you belong to [...] Score 1 11/25/2022 [facility] of Occupat ional Health - Occupational Stress [...] WAY [facility] 110 [place] [address] Shawn Barber MD [address] [facility] 110 [place] [address] 03/15/2025 3:10 PM EST Office Visit [facility] [address] [place] [address] [place] [address] Colt Mendieta, DPChris 3006 [facility] 5 [place] [address] documented as of this encounter Procedures Procedure Name Priority Date/Time Associated Diagnosis Comments SCANNED LABS Routine 06/03/2023 3:44 PM EST documented in this encounter Results * SCANNED LABS (06/03/2023 3:44 PM EST) us Unknown Practice A LAB CHG PERFORMABLES Final Re sult documented in this encounter Visit Diagnoses Not on filedocumented in this encounter Care Teams Clay Molder Relationship Specialty Start Date End Date Shawn Barbre MD [address] [facility] 110 [place] [address] PCP - ACO Reach 09/24/22 Shawn Barber MD [address] [facility] 110 [place] [address] PCP - General Internal Medicine 10/22/22WednesdayRandee LPN [address] [place] [address] Licensed Practical Nurse Family Medicine 12/29/22 06/09/24 Becca Campos LSW [address] [place] [address] Dielectric Machine Operator Family Medicine 12/29/22 08/24/24 Hilary Frank, RN [address] [place] [address] Licensed Practical Nurse Family Medicine 06/09/24 07/21/24 Kaylen Moore LPN [address] [facility] 110 [place] [address] 07/21/24 documented as of this encounter
--- OUTSIDE RECORDS SUMMARY | 2025-01-30 09:56 | XMS_ITS | Encounter Summary ---
Author Organization [facility] Address [address] [facility] [place] [address] Care Team Providers Care Band Saw Operator Cake Cutting Name Role Phone Shawn Barber MD Unavailable [phone] Shawn Barber MD Primary Care Provider Becca Campos BAILING MACHINE OPERATOR Unavailable [phone] Hilary Frank RN Unavailable [phone] Kaylen Moore CABLE RESPOOLER Unavailable Encounter Details Date Type Department Care Team (Late st Contact Info) Description 07/13/2024 Abstract [facility] [place] [facility] [address] [facility] 110 [place] [address] Shawn Barber MD 112 [facility] 110 [place], [place] [address] Social History Tobacco Use Types Packs/Day Years [...] attend chur ch or orthodox services? Never 12/06/2023 Do you belong to any clubs o r organizations such as confucianism groups, unions, fraternal or athletic groups, or [...] 1 11/25/2022 [facility] - Occupational [...] 2:00 PM EDT Office Visit [facility] [place] [facility] [address] [facility] 110 [place] [address] Shawn Barber MD [address] [facility] 110 [place] [address] 03/15/2025 3:10 PM EST Office Visit [facility] [address] [facility] 120 [place] [address] Colt Mendieta, DPM 3006 [facility] 5 [place] [address] documented as of this encounter Visit Diagnoses Not on filedocumented in this encounter Care Teams Band Saw Operator Cake Cutting Relationship Specialty Start Date End Date Shawn Barber MD [address] [facility] 110 [place] [address] PCP - ACO Reach 09/24/22 Shawn Barber MD [address] [facility] [address] [place] [address] PCP - General Internal Medicine 10/22/22 Becca Campos LSW [address] [place] [address] Computer Applications Engineer Family Medicine 12/29/22 08/24/24 Hilary Frank, RN [address] [place] [address] Licensed Practical Nurse Family Medicine 06/09/24 07/21/24 Kaylen Moore LPN [address] [facility] 110 [place] [address] 07/21/24 documented as of this encounter
--- OUTSIDE RECORDS SUMMARY | 2025-01-30 09:56 | XMS_ITS | Encounter Summary ---
Author Organization [facility] Address [address] [facility] [place] [address] Care Team Providers Care Entry Engineer Name Role Phone Shawn Barber MD Unavailable [phone] Shawn Barber MD Primary Care Provider Becca Campos RURAL ROUTE CARRIER Unavailable [phone] Hilary Frank RN Unavailable [phone] Kaylen Moore NEW BUSINESS CLERK Unavailable Encounter Details Date Type Department Care Team (Late st Contact Info) Description 06/23/2024 Abstract [facility] [place] [facility] [address] [facility] 110 [place] [id number] Shawn Barber MD 112 [facility] 110 [place], [place] [id number] Social History Tobacco Use Types Packs/Day Years [...] attend chur ch or orthodoxy services? Never 12/06/2023 Do you belong to [...] Questionnaire-2 Score 1 11/25/2022 [facility] - Occupational Stress Questionnaire [...] in the past 12 [address] [facility], were you homeless or living [...] 2:00 PM EDT Office Visit [facility] [place] [facility] [address] [facility] 110 [place] [address] Shawn Barber MD [address] [facility] 110 [place] [address] 03/15/2025 3:10 PM EST Office Visit [facility] [address] [facility] 120 [place] [address] Colt Mendieta, DPM [address] [facility] 5 [place] [address] documented as of this encounter Visit Diagnoses Not on filedocumented in this encounter Care Teams Entry Engineer Relationship Specialty Start Date End Date Shawn Barber MD [address] [facility] [address] [place] [address] PCP - ACO Reach 09/24/22 Shawn Barber MD [address] [facility] [address] [place] [address] PCP - General Internal Medicine 10/22/22 Becca Campos LSW [address] [place] [address] Land Surveyor Family Medicine 12/29/22 08/24/24 Hilary Frank, RN [address] [place] [address] Licensed Practical Nurse Family Medicine 06/09/24 07/21/24 Kaylen Moore LPN [address] [facility] [address] [place] [address] 07/21/24 documented as of this encounter
--- OUTSIDE RECORDS SUMMARY | 2025-01-30 09:56 | XMS_ITS | Encounter Summary ---
Author Organization [facility] Address [address] [facility] [place] [address] Care Team Providers Care Steel Detailer Name Role Phone Shawn Barber MD Unavailable [phone] Shawn Barber MD Primary Care Provider [phone] Wednesday, Randee SYSTEM MANAGER Unavailable [phone] Becca Campos HARDWOOD FLOOR SANDER Unavailable Hilary Frank RN Unavailable Kaylen Moore SYSTEM MANAGER Unavailable Encounter Details Date Type Department Care Team (Late st Contact Info) Description 05/13/2023 Orders Only [facility] [place] [facility] [address] [place] [address] [place] [id number] A, Unknown Practice [address] [place], [place] [id number] Social History Tobacco Use Types Packs/Day Years [...] Recorded Patient Health Questionnaire-2 Score 1 11/25/2022 [facility] Occupat ional Health - [...] [facility] [address] [place] [address] Shawn Barber MD [address] [facility] [address] [place] [address] 03/15/2025 3:10 PM EST Office Visit [facility] [address] [facility] 120 [place] [address] Colt Mendieta, DEVI [address] [facility] 5 [place] [address] documented as of this encounter [...] on filedocumented in this encounter Care Teams Steel Detailer Relationship Specialty Start Date End Date Shawn Barber MD [address] [facility] 110 [place] [address] PCP - ACO Reach 09/24/22 Shawn Barber MD [address] [facility] 110 [place] [address] PCP - General Internal Medicine 10/22/22WednesdayRandee LPN [address] [place] [address] Licensed Practical Nurse Family Medicine 12/29/22 06/09/24 Becca Campos LSW [address] [place] [address] Assistant Administrator Family Medicine 12/29/22 08/24/24 Hilary Frank, RN [address] [place] [address] Licensed Practical Nurse Family Medicine 06/09/24 07/21/24 Kaylen Moore LPN [address] [facility] 110 [place] [address] 07/21/24 documented as of this encounter
--- OUTSIDE RECORDS SUMMARY | 2025-01-30 09:56 | XMS_ITS | Encounter Summary ---
Author Organization [facility] Address [address] [facility] [place] [address] Care Team Providers Care Manager Lsw Name Role Phone Shawn Barber MD Unavailable [phone] Shawn Barber MD Primary Care Provider [phone] Wednesday, Randee INSTRUMENT ASSEMBLER Unavailable [phone] Becca Campos BANQUET MANAGER Unavailable Hilary Frank RN Unavailable [phone] Kaylen Moore INSTRUMENT ASSEMBLER Unavailable Encounter Details Date Type Department Care Team (Late st Contact Info) Description 05/24/2023 Abstract [facility] [place] [facility] [address] [facility] 110 [place] [address] Shawn Barber MD 112 [facility] 110 [place] [address] Social History Tobacco Use [...] Score 1 11/25/2022 [facility] of Occupat ional Health - Occupational [...] EDT Office Visit [facility] [place] [address] [facility] 110 [place] [address] Shawn Barber MD 112 [facility] 110 [place] [address] 03/15/2025 3:10 PM EST Office Visit [facility] [address] [facility] [address] [place] [address] Colt Mendieta, DPChris [address] [facility] 5 [place] [address] documented as of this encounter Visit Diagnoses Not on filedocumented in this encounter Care Teams Manager Lsw Relationship Specialty Start Date End Date Shawn Barber MD [address] [facility] [address] [place] [address] PCP - ACO Reach 09/24/22 Shawn Barber MD [address] [facility] 110 [place] [address] PCP - General Internal Medicine 10/22/22WednesdayRandee LPN [address] [place] [address] Licensed Practical Nurse Family Medicine 12/29/22 06/09/24 Becca Campos, BANQUET MANAGER [address] [place] [address] Pr Intern Family Medicine 12/29/22 08/24/24 Hilary Frank, RN [address] [place] [address] Licensed Practical Nurse Family Medicine 06/09/24 07/21/24 Kaylen Moore LPN [address] [facility] [address] [place] [address] 07/21/24 documented as of this encounter
--- OUTSIDE RECORDS SUMMARY | 2025-01-30 09:56 | XMS_ITS | Encounter Summary ---
Author Organization [facility] Address [address] [facility] [place] [address] Care Team Providers Care Car Framer Name Role Phone Shawn Barber MD Unavailable [phone] Shawn Barber MD Primary Care Provider [phone] Becca Campos INDUSTRIAL PAINTER Unavailable [phone] Hilary Frank RN Unavailable [phone] Kaylen Moore MANUFACTURING TEAM MEMBER Unavailable Encounter Details Date Type Department Care Team (Late st Contact Info) Description 07/10/2024 Abstract [facility] [place] [facility] [address] [facility] 110 [place] [id number] Shawn Barber MD 112 [facility] 110 [place], [place] [id number] Social History Tobacco Use Types Packs/Day Years [...] Score 1 11/25/2022 [facility] - Occupational [...] were you homeless or living in a usp (including now)? No 12/06/2023 Comments Unknown Sex and Gender Information Value Date Recorded Sex Assigned at Not on file Legal Sex Female 6:46 PM EDT Gender Identity Not on file Sexual Orientation Not on file documented as of this encounter Plan of Treatment Upcoming Encounters Date Type Department Care Team (Late st Contact Info) Description 02/05/2025 2:00 PM EDT Office Visit [facility] [place] [facility] [address] [facility] [address] [place] [address] Shawn Barber MD [address] [facility] [address] [place] [address] 03/15/2025 3:10 PM EST Office Visit [facility] [address] [facility] [address] [place] [address] Colt Mendieta, DPM [address] [facility] 5 [place] [address] documented as of this encounter Visit Diagnoses Not on filedocumented in this encounter Care Teams Car Framer Relationship Specialty Start Date End Date Shawn Barber MD [address] [facility] [address] [place] [address] PCP - ACO Reach 09/24/22 Shawn Barber MD [address] [facility] [address] [place] [address] PCP - General Internal Medicine 10/22/22 Becca Campos LSW [address] [place] [address] Director Of Online Education Family Medicine 12/29/22 08/24/24 Hilary Frank, RN [address] [place] [address] Licensed Practical Nurse Family Medicine 06/09/24 07/21/24 Kaylen Moore LPN [address] [facility] [address] [place] [address] 07/21/24 documented as of this encounter
--- OUTSIDE RECORDS SUMMARY | 2025-01-30 09:56 | XMS_ITS | Encounter Summary ---
Author Organization [facility] Address [address] [place] [address] Care Team Providers Care Candle Molder Name Role Phone Shawn Barber MD Unavailable [phone] Shawn Barber MD Primary Care Provider [phone] Wednesday, Randee LOKIE DRIVER Unavailable [phone] Becca Campos ANALYSIS MANAGER Unavailable [phone] Hilary Frank RN Unavailable Kaylen Moore LOKIE DRIVER Unavailable Encounter Details Date Type Department Care Team (Late st Contact Info) Description 05/12/2023 Orders Only [facility] [place] [facility] [address] [facility] [address] [place] [phone] A, Unknown Practice [address] [id number] Social History Tobacco Use Types Packs/Day Years [...] [facility] [place] [facility] [address] [facility] 110 [place] [address] Shawn Barber MD [address] [facility] 110 [place] [address] 03/15/2025 3:10 PM EST Office Visit [facility] [address] [facility] 120 [place] [address] Colt Mendieta, DPM 3006 [facility] 5 [place] [address] documented as of this encounter Procedures Procedure [...] on filedocumented in this encounter Care Teams Candle Molder Relationship Specialty Start Date End Date Shawn Barber MD [address] [facility] [address] [place] [address] PCP - ACO Reach 09/24/22 Shawn Barber MD [address] [facility] [address] [place] [address] PCP - General Internal Medicine 10/22/22WednesdayRandee LPN [address] [place] [address] Licensed Practical Nurse Family Medicine 12/29/22 06/09/24 Becca Campos, ANALYSIS MANAGER [address] [place] [address] Admitting Officer Family Medicine 12/29/22 08/24/24 Hilary Frank, RN [address] [place] [address] Licensed Practical Nurse Family Medicine 06/09/24 07/21/24 Kaylen Moore LPN [address] [facility] [address] [place] [address] 07/21/24 documented as of this encounter
--- OUTSIDE RECORDS SUMMARY | 2025-01-30 09:56 | XMS_ITS | Encounter Summary ---
Author Organization [facility] Address [address] [facility] [address] Care Team Providers Care Leather Softener Name Role Phone Shawn Barber MD Unavailable Shawn Barber MD Primary Care Provider [phone] Kaylen Moore LPN Unavailable Encounter Details Date Type Department Care Team (Late st Contact Info) Description 10/11/2024 Abstract [facility] [place] [facility] [address] [facility] 110 [place] [phone] Shawn Barber MD [address] [facility] 110 [place], [place] [phone] Social History Tobacco Use Types Packs/Day Years [...] attend chur ch or samaritan services? Never 12/06/2023 Do you belong to [...] Health Questionnaire-2 Score 1 11/25/2022 [facility] [place] of Occupat ional Health - Occupational Stress [...] any time in the past 12 m [facility], were you homeless or living in [...] [address] [facility] 110 [place] [address] Shawn Barber MD [address] [facility] [address] [place] [address] 03/15/2025 3:10 PM EST Office Visit [facility] [address] [facility] [address] [place] [id number] Colt Mendieta, DPM 3006 [facility] 5 [place] [address] documented as of this encounter Visit Diagnoses Not on filedocumented in this encounter Care Teams Leather Softener Relationship Specialty Start Date End Date Shawn Barber MD [address] [facility] 110 [place] [address] PCP - ACO Reach 09/24/22 Shawn Barber MD [address] [facility] 110 [place] [address] PCP - General Internal Medicine 10/22/22 Kaylen Moore LPN [address] [facility] 110 [place] [address] 07/21/24 documented as of this encounter
--- OUTSIDE RECORDS SUMMARY | 2025-01-30 09:56 | XMS_ITS | Clinical Summary ---
Author Organization [facility] Address [address] [place] [address] Phone Care Team Providers Care Systems Software Developer Name Role Phone Shawn Barber MD Primary Care Provider [phone] Shawn Barber MD Unavailable [phone] Allergies No known active allergies Medications FLUoxetine (PROzac) 40 mg capsule Take 1 capsule (40 mg) by mouth once daily. Active metoprolol tartrate (Lopressor) 50 mg tablet Take 1 tablet by mouth 2 times a day. Active oxygen (O2) gas therapy Inhale 1 Dose continuousl y. Active atorvastatin (Lipitor) 20 mg tablet Take [...] 3 times a day as needed. Active estradiol (Estrace) 0.01 % (0.1 mg/gram) vaginal cream 2 times a week. 3 Active potassium chloride CR 20 mEq ER tablet Take 1 tablet (20 mEq) by mouth once daily. 4 Active pantoprazole (ProtoNix) 40 mg EC tablet Take 1 tablet (40 mg) by mouth 2 times a day. Do not crush, chew, or split. Active vitamins A,C,T-tyzm-vnjfo r 2,148 mcg-113 mg-45 mg-17.4mg tablet Take 1 capsule by mouth once daily. Active multivitamin tablet Take 1 tablet by mouth once daily. Active HYDROcodone-acet aminophen (Altha) 5-325 mg tablet Take 1 tablet by mouth every 6 hours if needed for severe pain (7 - 10). Active Ventolin HFA 90 mcg/actuation inhaler 2 puffs 2 times a day. 5 Active levETIRAcetam (Keppra) 250 mg tablet Take 1 tablet (250 mg) by mouth 2 times a day. 5 Active FeroSuL 325 mg (65 mg iron) tablet Take 1 tablet by mouth every other day. Active fluticasone propion-salmeter oL (Advair Diskus) 250-50 mcg/dose diskus inhaler Inhale 1 puff 2 times a day. 5 Active ALPRAZolam (Xanax) 1 mg tablet Take 1 tablet (1 mg) by mouth every 8 hours if needed for anxiety. 5 Active calcitriol (Rocaltrol) 0.5 mcg capsule Take 1 capsule (0.5 mcg) by mouth 3 (three) times a week. Active furosemide (Lasix) 40 mg tablet Take 1 tablet (40 mg) by mouth every 12 hours. 5 Active midodrine (Proamatine) 5 mg tablet Take 1 tablet (5 mg) by mouth 3 times daily (morning, midday, late afternoon). 5 Active Eliquis 5 mg tablet Take 1 tablet (5 mg) by mouth 2 times a day. 5 Active dapagliflozin propanediol (Farxiga) 10 mg Take 1 tablet (10 mg) by mouth once daily. 01/03/20 25 Discontinue d(Discontin ued by another clinician) ondansetron (Zofran) 4 mg tablet Take 1 tablet (4 mg) by mouth every 8 hours if needed for nausea or vomiting. 01/03/20 25 Discontinue d(Therapy completed) brexpiprazole (Rexulti) 1 mg tablet Take 1 tablet (1 mg) by mouth once daily at bedtime. 01/03/20 25 Discontinue d(Med List Cleanup) ALPRAZolam XR (Xanax XR) 1 mg 24 hr tablet Take 1 tablet (1 mg) by mouth 3 times a day as needed. Do not crush, chew, or split. 01/03/20 25 Discontinue d(Dose adjustment) dulaglutide (Trulicity) 0.75 mg/0.5 mL pen injector Inject 0.75 mg under the skin 1 (one) time per week. 01/03/20 25 Discontinue d(Therapy completed) bumetanide (Bumex) 2 mg tablet Take 1 tablet (2 mg) by mouth once daily. 4 01/03/20 25 Discontinue d(Med List Cleanup) apixaban (Eliquis) 2.5 mg tabletIndication s:Paroxysmal atrial fibrillation (Multi),Anticoag ulated Take 1 tablet (2.5 mg) by mouth 2 times a day. 180 tablet 3 5 01/03/20 25 Discontinue d(Dose adjustment) calcium acetate (Phoslo) 667 mg capsule Take 1 capsule (667 mg) by mouth 3 times a day. 01/03/20 25 Discontinue d(Med List Cleanup) Prolia 60 mg/mL syringe Inject 1 mL (60 mg total) under the skin every 6 months. 5 01/03/20 25 Discontinue d(Therapy completed) torsemide (Demadex) 20 mg tablet Take 1 tablet (20 mg) by mouth once daily. 5 01/03/20 25 Discontinue d(Therapy completed) Active Problems Problem Noted Date Diagnosed Date Chronic kidney disease, stage 5 (Multi) 01/03/20 Assessment & Plan (01/04/2025 10:39 AM EDT): October 2024 hospitalization was placed on hemodialysis. Remains 3 times weekly COPD (chronic obstructive pulmonary disease) ( lti) 05/10/2024 BMI 27.0-27.9,adult 07/26/2023 Assessment & Plan (11/07/2024 7:57 AM EDT): Reviewed the merits of healthy lifestyle choices on overall cardiovascular health. Assessment & Plan (07/27/2023 1:29 PM EDT): Her weight is down approximately 30 pounds. She relates this to recent mandibular fracture and difficulty with dentures. Aortic stenosis 03/30/2023 Assessment & Plan (01/04/2025 10:32 AM EDT): October 2022 TTE Aortic Stenosis p46;May 2023 TTE Aortic stenosis p28:m15 JUDITH 1.2 centimeter squared Jun 2024 TTE Moderate aortic stenosis p44; m28 JUDITH 1.October TTE (PAF at time of echo) Severe aortic stenosis: p55:m30 JUDITH 0.87 Assessment & Plan (11/07/2024 7:52 AM EDT): October 2022 TTE Aortic Stenosis p46;May 2023 TTE Aortic stenosis p28:m15 JUDITH 1.2 centimeter squared Jun 2024 TTE Moderate aortic stenosis p56;m34 JUDITH 1.0 Assessment & Plan (07/27/2023 1:24 PM EDT): October 2022 TTE Aortic Stenosis p46;May 2023 TTE Aortic stenosis p28:m15 JUDITH 1.2 centimeter squared Assessment & Plan (04/03/2023 11:59 AM EST): October 2022 TTE Aortic Stenosis p46;m26 A-fib (Multi) 03/30/2023 Assessment & Plan (01/04/2025 10:35 AM EDT): PAF May 2023 discharge summary documents inpatient afib with RVR - spontaneous conversion October 2024 hospitalization noted to have PAF - discharged in NSR. October 2024 TTE LA severe dilated MR mild RRR in office today No prior antiarrhythmic Assessment & Plan (11/07/2024 7:53 AM EDT): PAF May 2023 discharge summary documents inpatient afib with RVR - spontaneous conversion RRR in office today No prior antiarrhythmic Jun 2024 TTE LA mild dilated MR mild Assessment & Plan (07/27/2023 1:25 PM EDT): [...] exam Abnormal echocardiogram 03/30/2023 Assessment & Plan (11/07/2024 7:53 AM EDT): May 2023 TTE LVEF 75% Aortic valve area 1.2 cm RVSP 60 mmHg June 2024 TTE LVEF 65 to 70% LVH mild Left atrium mildly dilated Aortic valve area 1.0 cm MR mild RVSP 53 mmHg Assessment & Plan (07/27/2023 1:26 PM EDT): [...] Pulmonary hypertension (Multi) 03/30/2023 Assessment & Plan (01/04/2025 10:37 AM EDT): October 2022 TTE RVSP 84 mmHg She denies any prior PE, has longstanding tobacco abuse, chronic hypoxia and COPD May 2023 TTE RVSP 60 mmHg RV function size reported to be normal June 2024 TTE RVSP 53 mmHg RV function reported to be normal October 2024 TTE RVSP 58mmHG Assessment & Plan (11/07/2024 7:54 AM EDT): October 2022 TTE RVSP 84 mmHg She denies any prior PE, has longstanding tobacco abuse, chronic hypoxia and COPD May 2023 TTE RVSP 60 mmHg RV function size reported to be normal June 2024 TTE RVSP 53 mmHg RV function reported to be normal Assessment & Plan (07/27/2023 1:27 PM EDT): October 2022 TTE RVSP 84 mmHg She denies any prior PE, has longstanding tobacco abuse, chronic hypoxia and COPD May 2023 TTE RVSP 60 mmHg RV function size reported to be normal Anticoagulated 03/30/2023 Assessment & Plan (01/04/2025 10:38 AM EDT): NADIR MARCELOc 4 anticoagulated full dose Eliquis age 74, weight 64 kg Denies bleeding diatheses Anemia of chronic disease Assessment & Plan (11/07/2024 7:57 AM EDT): NADIR MARCELOc 4 Currently on low-dose Eliquis. Age 73, creatinine 2.6. She reports that her euvolemic weight on her home scale is about 130-135 pounds (59-60kg) -weight documented in our office today is 141 and she feels that that is not correct, she does have 1+ ankle edema. She is concerned regarding increased bruising. Assessment & Plan (07/27/2023 1:28 PM EDT): NADIR VASc 4 Currently on full dose Eliquis. Recent 30 pound weight loss puts her weight at 60 kg, discharge creatinine 2.0 Will reduce to Eliquis 2.5 mg twice daily She denies bleeding diatheses Had 1 accidental fall, denies recurrent episode. Briefly introduced Watchman device Assessment & Plan (04/03/2023 12:03 PM EST): NADIR VASc 4 chronically anticoagulated full dose Eliquis age 72, weight 160 pounds. Stage 3 chronic kidney disease (Multi) Assessment & Plan (07/27/2023 1:29 PM EDT): They have not followed up recently with Dr. Guerra At one point her creatinine right about 4.2, May 2023 creatinine 2.06 Assessment & Plan (04/03/2023 12:04 PM EST): Report establish follow-up with Dr. Guerra Last creatinine in our system was 4.2 Current smoker 03/30/2023 Assessment & Plan (01/02/2025 3:56 PM EDT): Now at 10-15 per day Continued every day tobacco use. Have reviewed the negative cardiovascular impact of nicotine. Continues to decline pharmacological assistance. Assessment & Plan (11/06/2024 1:17 PM EDT): All depends Stress due to daughters illness and smoking more Currently 5 per day Continued every day tobacco use. Have reviewed the negative cardiovascular impact of nicotine. Continues to decline pharmacological assistance. Assessment & Plan (07/26/2023 2:53 PM EDT): [...] most recent A1c 5.6 Assessment & Plan (11/07/2024 7:57 AM EDT): Maintained on statin No LONI/ARB due to CKD She reports most recent hemoglobin A1c is under 5 Assessment & Plan (04/03/2023 12:03 PM EST): Maintained on statin No LONI/ARB due to CKD Hyperlipidemia 03/30/2023 Assessment & Plan (01/04/2025 10:37 AM EDT): Moderate intensity statin Assessment & Plan (11/07/2024 7:54 AM EDT): Moderate intensity statin Assessment & Plan (07/27/2023 1:27 PM EDT): Moderate intensity statin Assessment & Plan (04/03/2023 12:02 PM EST): Low intensity statin Essential hypertension 03/30/2023 Assessment & Plan (01/04/2025 10:38 AM EDT): On midodrine by nephrology due to hypotension during dialysis. Currently off antihypertensives Remains on Lopressor due to PAF Assessment & Plan (11/07/2024 7:54 AM EDT): Optimal in office Assessment & Plan (07/27/2023 1:27 PM EDT): Optimal in office Assessment & Plan (04/03/2023 12:02 PM EST): Optimal in office Resolved Problems Problem Noted Date Diagnosed Date Resolved Date BMI 31.0-31.9,adult 03/30/2023 07/26/19 24 Encounters Date Type Department Care Team Description 01/02/2025 3:30 PM EDT Office Visit [place] [id number] [address] Rama Kaba, FREELANCE COPYWRITER-FAX MACHINE REPAIRER Paroxysmal atrial fibrillation (Multi) (Primary Dx); Anticoagulated; Nonrheumatic aortic valve stenosis; Pulmonary hypertension (Multi); Mixed hyperlipidemia; Essential hypertension; BMI 27.0-27.9,adult; Current smoker; Chronic kidney disease, stage 5 (Multi) 01/02/2025 Travel 11/30/2024 Scanned Document [facility] [address] [place] [address] Scanning, Generic Provider 11/23/2024 Scanned Document [facility] [address] [place] [address] Scanning, Generic Provider 11/22/2024 Scanned Document [facility] [address] [place] [address] Scanning, Generic Provider 11/21/2024 Scanned Document [facility] [address] [place] [address] Scanning, Generic Provider 11/06/2024 1:00 PM EDT Office Visit [facility] [address] [facility] [address] [place] [address] Rama Kaba, FREELANCE COPYWRITER-FAX MACHINE REPAIRER Nonrheumatic aortic valve stenosis (Primary Dx); Paroxysmal atrial fibrillation (Multi); Anticoagulated; Pulmonary hypertension (Multi); Essential hypertension; Mixed hyperlipidemia; Abnormal echocardiogram; Diabetes mellitus type II, non insulin dependent (Multi); BMI 27.0-27.9,adult; Current smoker 11/06/2024 Travel from Last 3 Months Immunizations Immunization Administration Dates Next Due Flu vaccine, quadrivalent, h igh-dose, preservative free, age 65y+ (FLUZONE) 04/17/2024,03/01/2023,02/05/2022 PPD Test 05/30/2023,05/22/2023,05/20/2023 Pneumococcal conjugate vacci ne, 13-valent (PREVNAR 13) 06/13/2014 Pneumococcal conjugate vacci ne, 20-valent (PREVNAR 20) 05/20/2023 Pneumococcal polysaccharide vaccine, 23-valent, age 2 years and older (PNEUMOVAX 23) 02/03/2016,01/21/2015 Zoster, live 02/06/2016 Family History Medical History Relation Name Comments No Known Problems Brother No Known Problems Father No Known Problems Mother No Known Problems Sister Relation Name Status Comments Brother Father Mother Sister Social History Tobacco Use Types Packs/Day Years Used Date Smoking Tobacco: Every Day Cigarettes Started: 1973 Smokeless Tobacco: Never Tobacco Cessation:Ready to Q uit: No; Counseling Given: Yes Alcohol Use Standard Drinks/Week Comments Never 0 [...] Sign Reading Time Taken Comments Blood Pressure 136/70 01/02/2025 3:36 PM EDT Pulse 72 01/02/2025 3:36 PM EDT Temperature - - Respiratory Rate - - Oxygen Saturation - - Inhaled Oxygen Concentration - - Weight 64 kg (141 lb) 11/06/2024 1:01 PM EDT Height 152.4 cm (5') 11/06/2024 1:01 PM EDT Body Mass Index 27.54 11/06/2024 1:01 PM EDT Plan of Treatment Upcoming Encounters Date Type Department Care Team (Late st Contact Info) Description 02/15/2025 3:00 PM EDT Office Visit [address] [place] [address] Rey Canela DO [address] [place] [address] [address] [place] [address] 05/08/2025 2:30 PM EST Appointment [place] [address] [place] [address] 05/10/2025 2:20 PM EST Office Visit [address] [place] [address] Rey Canela DO [address] [place] [address] [address], [address] [place] [address] Health Maintenance Due Date Last Done Comments Lipid Panel 1950 Medicare Annual Wellness Visit (AWV) 1950 Diabetes: Retinopathy Screening 1960 Hepatitis C [...] Population) (1 - 1-dose 75+ series) 12/08/2023 Creatinine Level 05/18/2024 05/18/2023, , 05/16/2023, Additional history exists Potassium Level 05/18/2024 05/18/2023, 05/03, 05/16/2023, Additional history exists COVID-19 Vaccine ( season) 2025 Influenza Vaccine (#1) 2025 , 03/01/2023, 02/05/2022 Echocardiogram 11/22/2025 11/22/2024, 06/03, 04/29/2023, Additional history exists Colonoscopy Discontinued 02/16/2022, 06/2019, 02/02/2020 Colorectal Cancer Screening Discontinued Pneumococcal Vaccine Completed 05/20/2023, 02/03/2016, 01/21/2015, Additional history exists Mammogram Discontinued 06/02/2024, 05/05, 04/13/2023, Additional history exists CT Colonography Discontinued FIT-DNA (Cologuard) Discontinued FIT Discontinued HIB Vaccines Aged Out No longer eligi [...] on patient's age to complete this topic Sigmoidoscopy Discontinued Procedures Procedure Name Priority Date/Time Associated Diagnosis Comments ECHOCARDIOGRAM 11/22/2024 OUTSIDE IMAGING SCAN 11/21/2024 from Last 3 Months Results * Echocardiogram (11/22/2024) Narrative 11/22/2024 Ordered by an unspecified provider. us Generic Provider Scanning CV ECHO PROCEDURES Fin al Result * OUTSIDE IMAGING SCAN (11/21/2024) Anatomical Region Laterality Modality Other Narrative 11/21/2024 Ordered by an unspecified provider. us Generic Provider Scanning OUTSIDE SCAN Final Result from Last 3 Months Insurance MEDICARE PART A AND B MEDICAID MEDICARE PART A AND B MEDICAID Care Teams Systems Software Developer Relationship Specialty Start Date End Date Shawn Barber MD [address] [place] [address] PCP - General 12/28/22 Shawn Barber MD [address] [place] [address] 12/28/22
--- OUTSIDE RECORDS SUMMARY | 2025-01-30 09:56 | XMS_ITS | Encounter Summary ---
Author Organization [facility] Address [address] [facility] [place] [address] Care Team Providers Care Coupon And Bond Collection Clerk Name Role Phone Shawn Barber MD Unavailable [phone] Shawn Barber MD Primary Care Provider [phone] Kaylen Moore LPN Unavailable Encounter Details Date Type Department Care Team (Late st Contact Info) Description 10/11/2024 Abstract [facility] [place] [facility] [address] [facility] [address] [place] [phone] Shawn Barber MD [address] [facility] [address] [place], [place] [id number] Social History Tobacco Use Types Packs/Day Years [...] Recorded Patient Health Questionnaire-2 Score 1 11/25/2022 [facility] [place] of Occupat ional Health - Occupational Stress [...] time in the past 12 m [facility], were you homeless or living in [...] Visit [facility] [place] [facility] [address] [facility] [address] [place] [address] Shawn Barber MD [address] [place] [address] 03/15/2025 3:10 PM EST Office Visit [facility] [address] [facility] [address] [place] [phone] Colt Mendieta, DPM [address] [facility] 5 [place] [address] documented as of this encounter Visit Diagnoses Not on filedocumented in this encounter Care Teams Coupon And Bond Collection Clerk Relationship Specialty Start Date End Date Shawn Barber MD [address] [facility] 110 [place] [address] PCP - ACO Reach 09/24/22 Shawn Barber MD [address] [facility] [address] [place] [address] PCP - General Internal Medicine 10/22/22 Kaylen Moore LPN [address] [facility] [address] [place] [address] 07/21/24 documented as of this encounter
--- OUTSIDE RECORDS SUMMARY | 2025-01-30 09:56 | XMS_ITS | Encounter Summary ---
Author Organization [facility] Address [address] [facility] [place] [address] Care Team Providers Care Manager Clinical Pharmacy Name Role Phone Shawn Barber MD Unavailable [phone] Shawn Barber MD Primary Care Provider Kaylen Moore LPN Unavailable Encounter Details Date Type Department Care Team (Late st Contact Info) Description 11/20/2024 Abstract [facility] [place] [facility] [address] [facility] [address] [place] [phone] Shawn Barber MD [address] [facility] 110 [place], [place] [id number] Social History Tobacco Use Types Packs/Day Years [...] How often do you attend chur or voodoo services? Never 12/06/2023 Do you [...] Recorded Patient Health Questionnaire-2 Score 0 11/21/2024 [facility] [place] of Occupat ional Health - Occupational Stress [...] pleasure in doing things Not at all 11/21/2024 3:02 PM EDT Becky, LUZMA Ramos N Feeling down, depressed, or hopeless Not at all 11/21/2024 3:02 PM EDT Rachel Pena LP N Patient Health Questionnaire -2 Score 0 11/21/2024 3:02 PM EDT Rachel Pena LP N documented as of this encounter Plan of Treatment Upcoming Encounters Date Type Department Care Team (Late st Contact Info) Description 02/05/2025 2:00 PM EDT Office Visit [facility] [place] [facility] [address] [place] [address] Shawn Barber MD [address] [place] [address] 03/15/2025 3:10 PM EST Office Visit [facility] [address] [place] [address] Colt Mendieta, DPM [address] [facility] 5 [place] [address] documented as of this encounter Visit Diagnoses Not on filedocumented in this encounter Care Teams Manager Clinical Pharmacy Relationship Specialty Start Date End Date Shawn Barber MD [address] [place] [address] PCP - ACO Reach 09/24/22 Shawn Barber MD [address] [place] [address] PCP - General Internal Medicine 10/22/22 Kaylen Moore LPN [address] [place] [address] 07/21/24 documented as of this encounter
--- OUTSIDE RECORDS SUMMARY | 2025-01-30 09:56 | XMS_ITS | Encounter Summary ---
Author Organization [facility] Address [address] [facility] [place] [address] Care Team Providers Care Relations Coordinator Name Role Phone Shawn Barber MD Unavailable [phone] Shawn Barber MD Primary Care Provider [phone] Wednesday, Randee WIRE STRAIGHTENING MACHINE OPERATOR Unavailable [phone] Becca Campos PROCESS ENGINEERING INTERN Unavailable Hilary Frank RN Unavailable Kaylen Moore WIRE STRAIGHTENING MACHINE OPERATOR Unavailable Encounter Details Date Type Department Care Team (Late st Contact Info) Description 05/14/2023 Abstract [facility] [place] [facility] [address] [facility] 110 [place] [address] Shawn Barber MD 112 [facility] 110 [place] [address] Social History Tobacco [...] any clubs o r organizations such as caodaism groups, unions, fraternal or athletic groups, or [...] Questionnaire-2 Score 1 11/25/2022 [facility] of Occupat ional Health - Occupational [...] EDT Office Visit [facility] [place] [facility] [address] [facility] [address] [place] [address] Shawn Barber MD 112 [facility] 110 [place] [address] 03/15/2025 3:10 PM EST Office Visit [facility] [address] [place] [address] Colt Mendieta, DPChris [address] [facility] 5 [place] [address] documented as of this encounter Visit Diagnoses Not on filedocumented in this encounter Care Teams Relations Coordinator Relationship Specialty Start Date End Date Shawn Barber MD [address] [place] [address] PCP - ACO Reach 09/24/22 Shawn Barber MD [address] [facility] 110 [place] [address] PCP - General Internal Medicine 10/22/22WednesdayRandee LPN [address] [place] [address] Licensed Practical Nurse Family Medicine 12/29/22 06/09/24 Becca Campos, PROCESS ENGINEERING INTERN [address] [place] [address] Regional Service Manager Family Medicine 12/29/22 08/24/24 Hilary Frank, RN [address] [place] [address] Licensed Practical Nurse Family Medicine 06/09/24 07/21/24 Kaylen Moore LPN [address] [place] [address] 07/21/24 documented as of this encounter
--- OUTSIDE RECORDS SUMMARY | 2025-01-30 09:56 | XMS_ITS | Encounter Summary ---
Author Organization [facility] Address [address] [facility] [place] [address] Care Team Providers Care Lamp Assembler Name Role Phone Shawn Barber MD Unavailable [phone] Shawn Barber MD Primary Care Provider Wednesday, Randee COOLER OPERATOR Unavailable [phone] Becca Campos BLOWN FILM EXTRUSION OPERATOR Unavailable Hilary Frank RN Unavailable Kaylen Moore COOLER OPERATOR Unavailable Encounter Details Date Type Department Care Team (Late st Contact Info) Description 05/13/2023 Abstract [facility] [place] [facility] [address] [facility] [address] [place] [phone] Shawn Barber MD 112 [facility] 110 [place] [address] Social History Tobacco [...] often do you attend chur ch or lutheran services? Never 01/29/2023 Do you belong to [...] 11/25/2022 [facility] of Occupat ional Health [...] Office Visit [facility] [place] [facility] [address] [facility] [address] [place] [address] Shawn Barber MD [address] [facility] [address] [place] [address] 03/15/2025 3:10 PM EST Office Visit [facility] [address] [place] [address] Colt Mendieta, DPChris [address] [facility] 5 [place] [address] documented as of this encounter Visit Diagnoses Not on filedocumented in this encounter Care Teams Lamp Assembler Relationship Specialty Start Date End Date Shawn Barber MD [address] [place] [address] PCP - ACO Reach 09/24/22 Shawn Barber MD [address] [facility] [address] [place] [address] PCP - General Internal Medicine 10/22/22WednesdayRandee LPN [address] [place] [address] Licensed Practical Nurse Family Medicine 12/29/22 06/09/24 Becca Campos, BLOWN FILM EXTRUSION OPERATOR [address] [place] [address] Capacity Management Specialist Family Medicine 12/29/22 08/24/24 Hilary Frank, RN [address] [place] [address] Licensed Practical Nurse Family Medicine 06/09/24 07/21/24 Kaylen Moore LPN [address] [place] [address] 07/21/24 documented as of this encounter
--- OUTSIDE RECORDS SUMMARY | 2025-01-30 09:56 | XMS_ITS | Encounter Summary ---
Author Organization [facility] Address [address] [facility] [place] [address] Care Team Providers Care Mechanic'S Assistant Name Role Phone Shawn Barber MD Unavailable [phone] Shawn Barber MD Primary Care Provider Becca Campos WAGON DRIVER SALESPERSON Unavailable [phone] Hilary Frank RN Unavailable [phone] Kaylen Moore ADVANCED MANUFACTURING ASSOCIATE Unavailable Encounter Details Date Type Department Care Team (Late st Contact Info) Description 07/10/2024 Abstract [facility] [place] [facility] [address] [facility] 110 [place] [address] Shawn Barber MD 112 [facility] 110 [place], [place] [address] Social History Tobacco Use Types Packs/Day Years [...] attend chur ch or rastafari services? Never 12/06/2023 Do you belong to [...] 11/25/2022 [facility] - Occupational [...] any time in the past 12 m [facility], were you homeless or living in [...] 2:00 PM EDT Office Visit [facility] [place] [facility] [address] [facility] 110 [place] [address] Shawn Barber MD [address] [email or web address] 110 [place] [address] 03/15/2025 3:10 PM EST Office Visit [facility] [address] [facility] 120 [place] [address] Colt Mendieta, DPM 3006 [facility] 5 [place] [address] documented as of this encounter Visit Diagnoses Not on filedocumented in this encounter Care Teams Mechanic'S Assistant Relationship Specialty Start Date End Date Shawn Barber MD [address] [facility] [[email or web address] 110 [place] [address] PCP - ACO Reach 09/24/22 Shawn Barber MD [address] [email or web address] 110 [place] [address] PCP - General Internal Medicine 10/22/22 Becca Campos LSW [address] [place] [address] Transliterator Family Medicine 12/29/22 08/24/24 Hilary Frank, RN [address] [place] [address] Licensed Practical Nurse Family Medicine 06/09/24 07/21/24 Kaylen Moore LPN [address] [facility] [[email or web address] 110 [place] [address] 07/21/24 documented as of this encounter
--- OUTSIDE RECORDS SUMMARY | 2025-01-30 09:56 | XMS_ITS | Encounter Summary ---
Author Organization [facility] Address [address] [facility] [place] [address] Care Team Providers Care Paper Machine Back Tender Name Role Phone Shawn Barber MD Unavailable [phone] Shawn Barber MD Primary Care Provider Wednesday, Randee GERIATRIC PHYSICAL THERAPIST Unavailable [phone] Becca Campos MATERIAL DAMAGE ADJUSTER Unavailable [phone] Hilary Frank RN Unavailable Kaylen Moore GERIATRIC PHYSICAL THERAPIST Unavailable Encounter Details Date Type Department Care Team (Late st Contact Info) Description 05/14/2023 Abstract [facility] [place] [facility] [address] [facility] 110 [place] [address] Shawn Barber MD 112 [facility] 110 [place] [address] Social History Tobacco Use Types [...] Recorded Patient Health Questionnaire-2 Score 1 11/25/2022 [facility] of Occupat ional Health - Occupational [...] Office Visit [facility] [place] [facility] 112 [facility] 110 [place] [address] Shawn Barber MD 112 [facility] 110 [place] [address] 03/15/2025 3:10 PM EST Office Visit [facility] [address] [facility] [place] [address] Colt Mendieta, DPChris 3006 [facility] 5 [place] [address] documented as of this encounter Visit Diagnoses Not on filedocumented in this encounter Care Teams Paper Machine Back Tender Relationship Specialty Start Date End Date Shawn Barber MD [address] [place] [address] PCP - ACO Reach 09/24/22 Shawn Barber MD [address] [facility] 110 [place] [address] PCP - General Internal Medicine 10/22/22WednesdayRandee LPN [address] [place] [address] Licensed Practical Nurse Family Medicine 12/29/22 06/09/24 Becca Campos, MATERIAL DAMAGE ADJUSTER [address] [place] [address] Systems Project Manager Family Medicine 12/29/22 08/24/24 Hilary Frank, RN [address] [place] [address] Licensed Practical Nurse Family Medicine 06/09/24 07/21/24 Kaylen Moore LPN [address] [place] [address] 07/21/24 documented as of this encounter
--- OUTSIDE RECORDS SUMMARY | 2025-01-30 09:57 | XMS_ITS | Encounter Summary ---
Author Organization [facility] Address [address] [facility] [place] [address] Care Team Providers Care Law Office Manager Name Role Phone Shawn Barber MD Unavailable [phone] Shawn Barber MD Primary Care Provider Wednesday, Randee ELECTRICAL APPRENTICE Unavailable [phone] Becca Campos SCREW MACHINE OPERATOR Unavailable Hilary Frank RN Unavailable [phone] Kaylen Moore ELECTRICAL APPRENTICE Unavailable Encounter Details Date Type Department Care Team (Late st Contact Info) Description 07/29/2023 Abstract [facility] [place] [facility] 112 [facility] 110 [place] [address] Shawn Barber MD 112 [facility] 110 [place] [address] Social History Tobacco Use Types [...] Recorded Patient Health Questionnaire-2 Score 1 11/25/2022 [facility] [place] of Occupat ional Health - Occupational Stress [...] [address] [facility] 110 [place] [address] Shawn Barber MD [address] [facility] 110 [place] [address] 03/15/2025 3:10 PM EST Office Visit [facility] [address] [facility] [place] [address] Colt Mendieta, DPM 3006 [facility] 5 [place] [address] documented as of this encounter Visit Diagnoses Not on filedocumented in this encounter Care Teams Law Office Manager Relationship Specialty Start Date End Date Shawn Barber MD [address] [place] [address] PCP - ACO Reach 09/24/22 Shawn Barber MD [address] [facility] [place] [address] PCP - General Internal Medicine 10/22/22WednesdayRandee LPN [address] [place] [address] Licensed Practical Nurse Family Medicine 12/29/22 06/09/24 Becca Campos, NAY [address] [place] [address] Tobacco Cutter Family Medicine 12/29/22 08/24/24 Hilary Frank, RN [address] [place] [address] Licensed Practical Nurse Family Medicine 06/09/24 07/21/24 Kaylen Moore LPN [address] [place] [address] 07/21/24 documented as of this encounter
--- OUTSIDE RECORDS SUMMARY | 2025-01-30 09:57 | XMS_ITS | Encounter Summary ---
Author Organization [facility] Address [address] [facility] [place] [address] Care Team Providers Care Transformer Maker Name Role Phone Shawn Barber MD Unavailable [phone] Shawn Barber MD Primary Care Provider [phone] Wednesday, Randee HADOOP ADMINISTRATOR Unavailable [phone] Becca Campos TEACHING MANAGER Unavailable Hilary Frank RN Unavailable Kaylen Moore HADOOP ADMINISTRATOR Unavailable Encounter Details Date Type Department Care Team (Late st Contact Info) Description 07/28/2023 Abstract [facility] [place] [facility] 112 [facility] 110 [place] [address] Austin Rivas MD 112 [facility] 110 [place], [place] [address] Social History Tobacco Use Types Packs/Day Years [...] attend chur ch or jain services? Never 01/29/2023 Do you belong to [...] Questionnaire-2 Score 1 11/25/2022 [facility] [place] of Occupat ional Health - Occupational Stress [...] [facility] [place] [facility] [address] [facility] 110 [place] [address] Shawn Barber MD [address] [facility] 110 [place] [address] 03/15/2025 3:10 PM EST Office Visit [facility] [address] [facility] [place] [address] Colt Mendieta, DPM 3006 [facility] 5 [place] [address] documented as of this encounter Visit Diagnoses Not on filedocumented in this encounter Care Teams Transformer Maker Relationship Specialty Start Date End Date Shawn Barber MD [address] [place] [address] PCP - ACO Reach 09/24/22 Shawn Barber MD [address] [facility] [place] [address] PCP - General Internal Medicine 10/22/22WednesdayRandee LPN [address] [place] [address] Licensed Practical Nurse Family Medicine 12/29/22 06/09/24 Becca Campos, NAY [address] [place] [address] Cafeteria Supervisor Family Medicine 12/29/22 08/24/24 Hilary Frank, RN [address] [place] [address] Licensed Practical Nurse Family Medicine 06/09/24 07/21/24 Kaylen Moore LPN [address] [facility] [place] [address] 07/21/24 documented as of this encounter
--- OUTSIDE RECORDS SUMMARY | 2025-01-30 09:57 | XMS_ITS | Encounter Summary ---
Author Organization [facility] Address [address] [place] [address] Phone Care Team Providers Care Legal Technician Name Role Phone Shawn Barber MD Primary Care Provider [phone] Shawn Barber MD Unavailable [phone] Encounter Details Date Type Department Care Team (Late st Contact Info) Description 11/22/2024 Scanned Document [facility] [address] [place] [address] Scanning, Generic Provider Social History Tobacco Use Types Packs/Day Years Used Date Smoking Tobacco: Every Day Cigarettes Started: 1975 Smokeless Tobacco: Never Alcohol Use Standard Drinks/Week [...] Description 02/15/2025 3:00 PM EDT Office Visit [facility] [address] [facility] [address] [place] [address] Rey Canela DO 703 [facility] 2, [address] [place] [address] 05/08/2025 2:30 PM EST Appointment [facility] [address] [place] [address] 05/10/2025 2:20 PM EST Office [facility] [address] [place] [address] Rey Canela, DO [address], [address] [place] [address] documented as of this encounter Procedures Procedure Name Priority Date/Time Associated Diagnosis Comments ECHOCARDIOGRAM 11/22/2024 documented in this encounter Results * Echocardiogram (11/22/2024) Narrative 11/22/2024 Ordered by an unspecified provider. us Generic Provider Scanning CV ECHO PROCEDURES Fin al Result documented in this encounter Visit Diagnoses Not on filedocumented in this encounter Additional Health Concerns Assessment Noted Time PHQ-9 Depression Total Score: 11 023 2:33 PM EDT A fall risk assessment has been complete d for the patient 11/06/2024 1:03 PM EDT documented as of this encounter Care Teams Legal Technician Relationship Specialty Start Date End Date Shawn Barber MD [address] [facility] 110 [place] [address] PCP - General 12/28/22 Shawn Barber MD [address] [facility] 110 [place] [address] 12/28/22 documented as of this encounter
--- OUTSIDE RECORDS SUMMARY | 2025-01-30 09:57 | XMS_ITS | Encounter Summary ---
Author Organization [facility] Address [address] [facility] [place] [address] Care Team Providers Care Warehouse Picker Name Role Phone Shawn Barber MD Unavailable [phone] Shawn Barber MD Primary Care Provider [phone] Kaylen Moore LPN Unavailable Encounter Details Date Type Department Care Team (Late st Contact Info) Description 09/12/2024 Abstract [facility] [place] [facility] [address] [facility] 110 [place] [address] Shawn Barber MD 112 [facility] 110 [place], [place] [address] Social History Tobacco Use Types Packs/Day Years [...] attend chur ch or jewish services? Never 12/06/2023 Do you belong to [...] Patient Health Questionnaire-2 Score 1 11/25/2022 [facility] [place] of Occupat ional Health - Occupational Stress [...] Visit [facility] [place] [facility] [address] [facility] 110 [place] [address] Shawn Barber MD [address] [place] [address] 03/15/2025 3:10 PM EST Office Visit [facility] [address] [facility] [address] [place] [address] Colt Mendieta, DPM 3006 [facility] 5 [place] [address] documented as of this encounter Visit Diagnoses Not on filedocumented in this encounter Care Teams Warehouse Picker Relationship Specialty Start Date End Date Shawn Barber MD [address] [facility] 110 [place] [address] PCP - ACO Reach 09/24/22 Shawn Barber MD [address] [facility] 110 [place] [address] PCP - General Internal Medicine 10/22/22 Kaylen Moore LPN [address] [facility] 110 [place] [address] 07/21/24 documented as of this encounter
--- OUTSIDE RECORDS SUMMARY | 2025-01-30 09:57 | XMS_ITS | Encounter Summary ---
Author Organization [facility] Address [address] [facility] [place] [address] Care Team Providers Care Railroad Track Inspector Name Role Phone Shawn Barber MD Unavailable [phone] Shawn Barber MD Primary Care Provider [phone] Wednesday, Randee AMMONIUM HYDROXIDE OPERATOR Unavailable [phone] Becca Campos RETIREMENT CONSULTANT Unavailable Hilary Frank RN Unavailable Kaylen Moore AMMONIUM HYDROXIDE OPERATOR Unavailable Encounter Details Date Type Department Care Team (Late st Contact Info) Description 07/13/2023 Abstract [facility] [place] [facility] 112 [facility] 110 [place] [address] Shawn Barber MD 112 [facility] 110 [place] [address] Social History Tobacco Use Types [...] often do you attend chur ch or sabianist services? Never 01/29/2023 Do you belong to [...] Questionnaire-2 Score 1 11/25/2022 [facility] of Occupat ional Health - Occupational Stress [...] Visit [facility] [place] [facility] [address] [facility] 110 [place] [address] Shawn Barber MD [address] [facility] 110 [place] [address] 03/15/2025 3:10 PM EST Office Visit [facility] [address] [place] [address] Colt Mendieta, DPM 3006 [facility] 5 [place] [address] documented as of this encounter Visit Diagnoses Not on filedocumented in this encounter Care Teams Railroad Track Inspector Relationship Specialty Start Date End Date Shawn Barber MD [address] [place] [address] PCP - ACO Reach 09/24/22 Shawn Barber MD [address] [place] [address] PCP - General Internal Medicine 10/22/22WednesdayRandee LPN [address] [place] [address] Licensed Practical Nurse Family Medicine 12/29/22 06/09/24 Becca Campos, NAY [address] [place] [address] Director For Beauty [employer] Family Medicine 12/29/22 08/24/24 Hilary Frank, RN [address] [place] [address] Licensed Practical Nurse Family Medicine 06/09/24 07/21/24 Kaylen Moore LPN [address] [place] [address] 07/21/24 documented as of this encounter
--- OUTSIDE RECORDS SUMMARY | 2025-01-30 09:57 | XMS_ITS | Encounter Summary ---
Author Organization [facility] Address [address] [facility] [place] [address] Care Team Providers Care Soda Fountain Clerk Name Role Phone Shawn Barber MD Unavailable [phone] Shawn Barber MD Primary Care Provider [phone] Wednesday, Randee LAND SURVEYING PARTY CHIEF Unavailable [phone] Becca Campos WEATHER ANCHOR Unavailable Hilary Frank RN Unavailable Kaylen Moore LAND SURVEYING PARTY CHIEF Unavailable Encounter Details Date Type Department Care Team (Late st Contact Info) Description 05/10/2023 Orders Only [facility] [place] [facility] [address] [place] [address] [place] [address] A, Unknown Practice [address] [place], [place] [address] Social History Tobacco Use Types Packs/Day Years [...] attend chur ch or worship services? Never 01/29/2023 Do you belong to [...] Recorded Patient Health Questionnaire-2 Score 1 11/25/2022 [facility] of Occupat ional Health [...] [address] [facility] 110 [place] [address] Shawn Barber MD [address] [facility] 110 [place] [address] 03/15/2025 3:10 PM EST Office Visit [facility] [address] [place] [address] [place] [address] Colt Mendieta, DPChris 3006 [facility] 5 [place] [address] documented as of this encounter Procedures Procedure Name Priority Date/Time Associated Diagnosis Comments SCANNED LABS Routine 05/07/2023 12:49 PM EST documented in this encounter Results * SCANNED LABS (05/07/2023 12:49 PM EST) us Unknown Practice A LAB CHG PERFORMABLES Final Re sult documented in this encounter Visit Diagnoses Not on filedocumented in this encounter Care Teams Soda Fountain Clerk Relationship Specialty Start Date End Date Shawn Barber MD [address] [facility] 110 [place] [address] PCP - ACO Reach 09/24/22 Shawn Barber MD [address] [facility] 110 [place] [address] PCP - General Internal Medicine 10/22/22WednesdayRandee LPN [address] [place] [address] Licensed Practical Nurse Family Medicine 12/29/22 06/09/24 Becca Campos LSW [address] [place] [address] Store Grocery Merchandiser Family Medicine 12/29/22 08/24/24 Hilary Frank, RN [address] [place] [address] Licensed Practical Nurse Family Medicine 06/09/24 07/21/24 Kaylen Moore LPN [address] [facility] 110 [place] [address] 07/21/24 documented as of this encounter
--- OUTSIDE RECORDS SUMMARY | 2025-01-30 09:57 | XMS_ITS | Encounter Summary ---
Author Organization [facility] Address [address] [facility] [place] [address] Care Team Providers Care Pan Pusher Name Role Phone Shawn Barber MD Unavailable [phone] Shawn Barber MD Primary Care Provider Wednesday, Randee GAME AUTHOR Unavailable [phone] Becca Campos SHRIMP PICKER Unavailable Hilary Frank RN Unavailable Kaylen Moore GAME AUTHOR Unavailable Encounter Details Date Type Department Care Team (Late st Contact Info) Description 08/24/2023 Abstract [facility] [place] [facility] 112 [facility] 110 [place] [address] Shawn Barber MD 112 [facility] 110 [place] [address] Social History Tobacco Use Types [...] often do you attend chur ch or uatsdin services? Never 01/29/2023 Do you belong to [...] Questionnaire-2 Score 1 11/25/2022 [facility] [place] of Occupat ional Health - Occupational Stress [...] Visit [facility] [place] [facility] [address] [facility] 110 [place] [address] Shawn Barber MD [address] [facility] 110 [place] [address] 03/15/2025 3:10 PM EST Office Visit [facility] [address] [place] [address] Colt Mendieta, DPM 3006 [facility] 5 [place] [address] documented as of this encounter Visit Diagnoses Not on filedocumented in this encounter Care Teams Pan Pusher Relationship Specialty Start Date End Date Shawn Barber MD [address] [place] [address] PCP - ACO Reach 09/24/22 Shawn Barber MD [address] [place] [address] PCP - General Internal Medicine 10/22/22WednesdayRandee LPN [address] [place] [address] Licensed Practical Nurse Family Medicine 12/29/22 06/09/24 Becca Campos, NAY [address] [place] [address] Graduating Machine Operator Family Medicine 12/29/22 08/24/24 Hilary Frank, RN [address] [place] [address] Licensed Practical Nurse Family Medicine 06/09/24 07/21/24 Kaylen Moore LPN [address] [place] [address] 07/21/24 documented as of this encounter
--- OUTSIDE RECORDS SUMMARY | 2025-01-30 09:57 | XMS_ITS | Encounter Summary ---
Author Organization [facility] Address [address] [place] [address] Phone Care Team Providers Care Regional Sales Manager Name Role Phone Shawn Barber MD Primary Care Provider Shawn Barber MD Unavailable [phone] Encounter Details Date Type Department Care Team (Late st Contact Info) Description 12/29/2022 Scanned Document [facility] [address] [place] [address] Conversion, Onbase Social History Tobacco Use Types [...] Description 02/15/2025 3:00 PM EDT Office Visit [address] [place] [address] Rey Canela DO 703 [facility] 2, [address] [place] [address] 05/08/2025 2:30 PM EST Appointment [place] [address] [facility] [address] [place] [address] 05/10/2025 2:20 PM EST Office Visit [facility] [address] [place] [address] Rey Canela, [address] [place] [address] documented as of this encounter Visit Diagnoses Not on filedocumented in this encounter Additional Health Concerns Assessment Noted Time PHQ-9 Depression Total Score: 11 023 2:33 PM EDT documented as of this encounter Care Teams Regional Sales Manager Relationship Specialty Start Date End Date Shawn Barber MD [address] [facility] 110 [place] [address] PCP - General 12/28/22 Shawn Barber MD [address] [facility] 110 [place] [address] 12/28/22 documented as of this encounter
--- OUTSIDE RECORDS SUMMARY | 2025-01-30 09:57 | XMS_ITS | Encounter Summary ---
Author Organization [facility] Address [address] [facility] [place] [address] Care Team Providers Care Outside Maintenance Worker Name Role Phone Shawn Barber MD Unavailable [phone] Shawn Barber MD Primary Care Provider Wednesday, Randee DENTAL PRACTICE MANAGER Unavailable [phone] Becca Campos DINING ROOM HOST/HOSTESS Unavailable Hilary Frank RN Unavailable [phone] Kaylen Moore DENTAL PRACTICE MANAGER Unavailable Encounter Details Date Type Department Care Team (Late st Contact Info) Description 07/27/2023 Abstract [facility] [place] [facility] 112 [facility] 110 [place] [address] Shawn Barber MD 112 [facility] 110 [place] [address] Social History Tobacco Use [...] Questionnaire-2 Score 1 11/25/2022 [facility] [place] of Occupat ional Health - Occupational Stress [...] Visit [facility] [place] [facility] [address] [facility] 110 [place] [address] Shawn Barber MD [address] [facility] 110 [place] [address] 03/15/2025 3:10 PM EST Office Visit [facility] [address] [place] [address] Colt Mendieta, DPM 3006 [facility] 5 [place] [address] documented as of this encounter Visit Diagnoses Not on filedocumented in this encounter Care Teams Outside Maintenance Worker Relationship Specialty Start Date End Date Shawn Barber MD [address] [place] [address] PCP - ACO Reach 09/24/22 Shawn Barber MD [address] [place] [address] PCP - General Internal Medicine 10/22/22WednesdayRandee LPN [address] [place] [address] Licensed Practical Nurse Family Medicine 12/29/22 06/09/24 Becca Campos, NAY [address] [place] [address] [facility] Hand Family Medicine 12/29/22 08/24/24 Hilary Frank, RN [address] [place] [address] Licensed Practical Nurse Family Medicine 06/09/24 07/21/24 Kaylen Moore LPN [address] [place] [address] 07/21/24 documented as of this encounter
--- OUTSIDE RECORDS SUMMARY | 2025-01-30 09:57 | XMS_ITS | Encounter Summary ---
Author Organization [facility] Address [address] [facility] [place] [address] Care Team Providers Care Public Health Nurse Name Role Phone Shawn Barber MD Unavailable [phone] Shawn Barber MD Primary Care Provider Wednesday, Randee REPLENISHMENT MERCHANDISING ASSOCIATE Unavailable [phone] Becca Campos ACTUARY CLERK Unavailable Hilary Frank RN Unavailable Kaylen Moore REPLENISHMENT MERCHANDISING ASSOCIATE Unavailable Encounter Details Date Type Department Care Team (Late st Contact Info) Description 09/09/2023 Abstract [facility] [place] [facility] 112 [facility] 110 [place] [address] Shawn Barber MD 112 [facility] 110 [place] [address] Social History Tobacco Use Types [...] Recorded Patient Health Questionnaire-2 Score 1 11/25/2022 [facility] [place] of Occupat ional Health - Occupational Stress [...] Visit [facility] [place] [facility] [address] [facility] 110 [place] [address] Shawn Barber MD [address] [facility] 110 [place] [address] 03/15/2025 3:10 PM EST Office Visit [facility] [address] [place] [address] Colt Mendieta, DPM 3006 [facility] 5 [place] [address] documented as of this encounter Visit Diagnoses Not on filedocumented in this encounter Care Teams Public Health Nurse Relationship Specialty Start Date End Date Shawn Barber MD [address] [place] [address] PCP - ACO Reach 09/24/22 Shawn Barber MD [address] [place] [address] PCP - General Internal Medicine 10/22/22WednesdayRandee LPN [address] [place] [address] Licensed Practical Nurse Family Medicine 12/29/22 06/09/24 Becca Campos, NYA [address] [place] [address] Reprint Sorter Family Medicine 12/29/22 08/24/24 Hilary Frank, RN [address] [place] [address] Licensed Practical Nurse Family Medicine 06/09/24 07/21/24 Kaylen Moore LPN [address] [place] [address] 07/21/24 documented as of this encounter
--- OUTSIDE RECORDS SUMMARY | 2025-01-30 09:57 | XMS_ITS | Encounter Summary ---
Author Organization [facility] Address [address] [facility] [place] [place] [address] Care Team Providers Care Turkey Pinner Name Role Phone Shawn Barber MD Unavailable [phone] Shawn Barber MD Primary Care Provider [phone] Kaylen Moore LPN Unavailable Encounter Details Date Type Department Care Team (Late st Contact Info) Description 09/12/2024 Abstract [facility] [place] [facility] [address] [facility] 110 [place] [phone] Sahwn Barber MD 112 [facility] 110 [place], [place] [address] Social History Tobacco Use Types Packs/Day Years [...] often do you attend chur ch or denominational services? Never 12/06/2023 Do you belong to [...] [facility] [place] of Occupat ional Health - Occupational Stress [...] any time in the past 12 m [facility], were you homeless or living in [...] [place] [address] [facility] 110 [place] [address] Shawn Barber MD [address] [place] [address] 03/15/2025 3:10 PM EST Office Visit [facility] [address] [facility] [address] [place] [phone] Colt Mendieta, DPM 3006 [facility] 5 [place] [address] documented as of this encounter Visit Diagnoses Not on filedocumented in this encounter Care Teams Turkey Pinner Relationship Specialty Start Date End Date Shawn Barber MD [address] [facility] 110 [place] [address] PCP - ACO Reach 09/24/22 Shawn Barber MD [address] [facility] 110 [place] [address] PCP - General Internal Medicine 10/22/22 Kaylen Moore LPN [address] [facility] 110 [place] [address] 07/21/24 documented as of this encounter
--- OUTSIDE RECORDS SUMMARY | 2025-01-30 09:57 | XMS_ITS | Encounter Summary ---
Author Organization [facility] Address [address] [place] [address] Phone Care Team Providers Care Boilermaker Fitter Name Role Phone Shawn Barber MD Primary Care Provider [phone] Shawn Barber MD Unavailable Encounter Details Date Type Department Care Team (Late st Contact Info) Description 11/08/2023 Scanned Document [facility] [address] [place] [address] Scanning, Generic Provider Social History [...] AM EDT documented as of this encounter Functional Status * Question Answer Date of Assessment Author BP 94/66 11/08/2023 10:16 AM EDT Suzan Rich CMA Pulse 76 11/08/2023 10:16 AM EDT Suzan Rich CMA * Communicable Disease Screening Question Answer Date of Assessment Author Do you have any of the follo wing new or worsening symptoms? None of these 11/08/2023 10:00 AM EDT Haile Carey documented as of this encounter Plan of Treatment Upcoming Encounters Date Type Department Care Team (Late st Contact Info) Description 02/15/2025 3:00 PM EDT Office Visit [address] [place] [address] Rey Canela, DO 703 [facility] 2, [address] [place] [address] 05/08/2025 2:30 PM EST Appointment [address] [place] [address] 05/10/2025 2:20 PM EST Office Visit [address] [place] [address] Rey Canela DO 703 [facility] 2, [address] [place] [address] documented as of this encounter Procedures Procedure Name Priority Date/Time Associated Diagnosis Comments OUTSIDE IMAGING SCAN 11/08/2023 documented in this encounter Results * OUTSIDE IMAGING SCAN (11/08/2023) Anatomical Region Laterality Modality Other Narrative 11/08/2023 Ordered by an unspecified provider. Generic Provider Scanning OUTSIDE SCAN Final Result documented in this encounter Visit Diagnoses Not on filedocumented in this encounter Additional Health Concerns Assessment Noted Time PHQ-9 Depression Total Score: 11 023 2:33 PM EDT A fall risk assessment has been complete d for the patient 11/08/2023 10:16 AM EDT documented as of this encounter Care Teams Boilermaker Fitter Relationship Specialty Start Date End Date Shawn Barber MD [address] [place] [address] PCP - General 12/28/22 Shawn Barber MD 112 [facility] 110 [place] [address] 12/28/22 documented as of this encounter
--- OUTSIDE RECORDS SUMMARY | 2025-01-30 09:57 | XMS_ITS | Encounter Summary ---
Author Organization [facility] Address [address] [place] [address] Phone Care Team Providers Care Technical Service Rep Name Role Phone Shawn Barber MD Primary Care Provider [phone] Shawn Barber MD Unavailable [phone] Encounter Details Date Type Department Care Team (Late st Contact Info) Description 11/09/2023 Scanned Document [facility] [address] [place] [address] Scanning, Generic Provider Social History [...] Description 02/15/2025 3:00 PM EDT Office Visit [facility] 703 [facility] 250 [place] [address] Rey Canela DO 703 [facility] 2, [address] [place] [address] 05/08/2025 2:30 PM EST Appointment [facility] 703 [facility] [address] [place] [address] 05/10/2025 2:20 PM EST Office Visit [address] [place] [address] Rey Canela, DO 703 [facility] 2, [address] [place] [address] documented as of this encounter Visit Diagnoses Not on filedocumented in this encounter Additional Health Concerns Assessment Noted Time PHQ-9 Depression Total Score: 11 023 2:33 PM EDT A fall risk assessment has been complete d for the patient 11/08/2023 10:16 AM EDT documented as of this encounter Care Teams Technical Service Rep Relationship Specialty Start Date End Date Shawn Barber MD [address] [facility] 110 [place] [address] PCP - General 12/28/22 Shawn Barber MD [address] [facility] 110 [place] [address] 12/28/22 documented as of this encounter
--- OUTSIDE RECORDS SUMMARY | 2025-01-30 09:57 | XMS_ITS | Encounter Summary ---
Author Organization [facility] Address [address] [place] [address] Care Team Providers Care Financial Reserve Clerk Name Role Phone Shwan Barber MD Unavailable [phone] Shawn Barber MD Primary Care Provider [phone] Kaylen Moore LPN Unavailable Encounter Details Date Type Department Care Team (Late st Contact Info) Description 10/05/2024 Orders Only [facility] [place] [facility] [address] [place] [address] [place] [address] Rachel Pena LPN [address] [place] [address] Pneumonia of left lower lobe due to [...] Recorded Patient Health Questionnaire-2 Score 1 11/25/2022 [facility] [place] of Occupat ional Health - Occupational Stress [...] any time in the past 12 m [place] [facility], were you homeless or living [...] 2:00 PM EDT Office Visit [facility] [place] [facility] 112 [facility] 110 [place] [address] Shawn Barber MD [address] [facility] 110 [place] [address] 03/15/2025 3:10 PM EST Office Visit [facility] [address] [facility] 120 [place] [address] Colt Mendieta, DPM 3006 [facility] 5 [place] [address] documented as of this encounter Visit Diagnoses Diagnosis Pneumonia of left lower lobe due to infectious organism documented in this encounter Care Teams Financial Reserve Clerk Relationship Specialty Start Date End Date Shawn Barber MD [address] [facility] 110 [place] [address] PCP - ACO Reach 09/24/22 Shawn Barber MD [address] [facility] 110 [place] [address] PCP - General Internal Medicine 10/22/22 Kaylen Moore LPN [address] [facility] 110 [place] [address] 07/21/24 documented as of this encounter
--- OUTSIDE RECORDS SUMMARY | 2025-01-30 09:57 | XMS_ITS | Encounter Summary ---
Author Organization [facility] Address [address] [place] [address] Care Team Providers Care Bumper Operator Name Role Phone Shawn Barber MD Unavailable [phone] Shawn Barber MD Primary Care Provider Wednesday, Randee SEGALN Unavailable [phone] Becca Campos ANALYTICAL CONSULTANT Unavailable Hilary Frank RN Unavailable [phone] Kaylen Moore BUNDLE CUTTER Unavailable Encounter Details Date Type Department Care Team (Late st Contact Info) Description 05/03/2023 Clinisync Result Encounter N[facility] External Department Unsolicited Shawn Barber MD [address] [place] [address] Social History Tobacco Use Types [...] any clubs o r organizations such as catholic groups, unions, fraternal or athletic groups, [...] Recorded Patient Health Questionnaire-2 Score 1 11/25/2022 [facility] of Occupat ional Health - Occupational [...] [address] [facility] 110 [place] [address] Shawn Barber MD [address] [place] [address] 03/15/2025 3:10 PM EST Office Visit [facility] [address] [place] [address] Colt Mendieta, DPChris 3006 [facility] 5 [place] [address] documented as of this encounter Procedures Procedure Name Priority Date/Time Associated Diagnosis Comments CT LUNG SCREENING LOW DOSE 05/03/2023 8:54 PM EST documented in this encounter Results * CT LUNG SCREENING LOW DOSE (05/03/2023 8:54 PM EST) Anatomical Region Laterality Modality Other 05/03/2023 8:54 PM EST Narrative 05/03/2023 8:56 PM EST [address] [address] [address] Scan Report Signed Patient: MARTIN MOORE MR#: [id number] : 1950 Acct:[id number] Age/Sex: 72 / F ADM Date: 04/30/23 Loc: CT Attending Dr: SHAWN BARBER Ordering Physician: SHAWN BARBER Date of Service: 04/30/23 Procedure(s): CT lung screening low-dose Accession Number(s): [id number] cc: SHAWN BARBER [address] [address] Patient Name: MARTIN MOORE MRN: [id number] date: 1950 Sex: F Assigned Patient Location: CT Current Patient Location: Accession/Order Number: [id number] Exam Date: 04/30/2023 10:00 Report Date: 05/03/2023 [...] M.D. Signed By: 05/03/232055 DD/ 53 TD/TT: Wood Calker: Procedure Note Radiology, Radiologist, MD - 05/03/2023 [place] [address] CT Scan Report Signed Patient: MARTIN MOORE MMR#: [id number] : 9Acct:[id number] Age/Sex: 72 / FADM Date: 04/30/23 Loc: CT Attending Dr: SHAWN BARBER Ordering Physician: SHAWN BARBER Date of Service: 04/30/23 Procedure(s): CT lung screening low-dose Accession Number(s): [id number] cc: SHAWN BARBER The [place] [address] Patient Name: MARTIN MOORE MRN: [id number] date: 1950 Sex: F Assigned Patient Location: CT Current Patient Location: Accession/Order Number: [id number] Exam Date: 04/30/2023 10:00 Report Date: 05/03/2023 [...] Conway M.D. Signed By:05/03/232055 DD/ 53 TD/TT: Wood Calker: Shawn Barber MD [facility] Final Result documented in this encounter Visit Diagnoses Not on filedocumented in this encounter Care Teams Bumper Operator Relationship Specialty Start Date End Date Shawn Barber MD [address] [place] [address] PCP - ACO Reach 09/24/22 Shawn Barber MD [address] [place] [address] PCP - General Internal Medicine 10/22/22WednesdayRandee LPN [address] [place] [address] Licensed Practical Nurse Family Medicine 12/29/22 06/09/24 Becca Campos, ANALYTICAL CONSULTANT [address] [place] [address] Cook Box Filler Family Medicine 12/29/22 08/24/24 Hilary Frank, RN [address] [place] [address] Licensed Practical Nurse Family Medicine 06/09/24 07/21/24 Kaylen Moore LPN [address] [place] [address] 07/21/24 documented as of this encounter
--- OUTSIDE RECORDS SUMMARY | 2025-01-30 09:57 | XMS_ITS | Encounter Summary ---
Author Organization [facility] Address [address] [facility] [place] [address] Care Team Providers Care Pharmacy Affairs Assistant Name Role Phone Shawn Barber MD Unavailable [phone] Shawn Barber MD Primary Care Provider Wednesday, Randee CONSERVATION ASSISTANT Unavailable [phone] Becca Campos BAGGER AND STOCK HANDLER HELPER Unavailable Hilary Frank RN Unavailable Kaylen Moore CONSERVATION ASSISTANT Unavailable Encounter Details Date Type Department Care Team (Late st Contact Info) Description 09/01/2023 Abstract [facility] [place] [facility] 112 [facility] 110 [place] [address] Shawn Barber MD 112 [facility] 110 [place] [address] Social History Tobacco Use Types [...] Recorded Patient Health Questionnaire-2 Score 1 11/25/2022 [facility] [place] of Occupat ional Health - Occupational Stress [...] [facility] [place] [facility] [address] [facility] 110 [place] [address] Shawn Barber MD [address] [facility] 110 [place] [address] 03/15/2025 3:10 PM EST Office Visit [facility] [address] [place] [address] Colt Mendieta, DPM 3006 [facility] 5 [place] [address] documented as of this encounter Visit Diagnoses Not on filedocumented in this encounter Care Teams Pharmacy Affairs Assistant Relationship Specialty Start Date End Date Shawn Barber MD [address] [place] [address] PCP - ACO Reach 09/24/22 Shawn Barber MD [address] [place] [address] PCP - General Internal Medicine 10/22/22WednesdayRandee LPN [address] [place] [address] Licensed Practical Nurse Family Medicine 12/29/22 06/09/24 Becca Campos, NAY [address] [place] [address] Exterior Door Installer Family Medicine 12/29/22 08/24/24 Hilary Frank, RN [address] [place] [address] Licensed Practical Nurse Family Medicine 06/09/24 07/21/24 Kaylen Moore LPN [address] [place] [address] 07/21/24 documented as of this encounter
--- OUTSIDE RECORDS SUMMARY | 2025-01-30 09:57 | XMS_ITS | Encounter Summary ---
Author Organization [facility] Address [address] [place] [address] Phone Care Team Providers Care Watch Technician Name Role Phone Shawn Barber MD Primary Care Provider [phone] Shawn Barber MD Unavailable [phone] Encounter Details Date Type Department Care Team (Late st Contact Info) Description 11/11/[address] [facility] [address] [place] [address] Scanning, Generic Provider Social History [...] Description 02/15/2025 3:00 PM EDT Office Visit [facility] 703 [facility] 250 [place] [address] Rey Canela DO 703 [facility] 2, [address] [place] [address] 05/08/2025 2:30 PM EST Appointment [facility] 703 [facility] [address] [place] [address] 05/10/2025 2:20 PM EST Office Visit [address] [place] [address] Rey Canela, DO 703 [facility] 2, [address] [place] [address] documented as of this encounter Visit Diagnoses Not on filedocumented in this encounter Additional Health Concerns Assessment Noted Time PHQ-9 Depression Total Score: 11 023 2:33 PM EDT A fall risk assessment has been complete d for the patient 11/08/2023 10:16 AM EDT documented as of this encounter Care Teams Watch Technician Relationship Specialty Start Date End Date Shawn Barber MD [address] [facility] 110 [place] [address] PCP - General 12/28/22 Shawn Barber MD [address] [facility] 110 [place] [address] 12/28/22 documented as of this encounter
--- OUTSIDE RECORDS SUMMARY | 2025-01-30 09:57 | XMS_ITS | Encounter Summary ---
Author Organization [facility] Address [address] [place] [address] Care Team Providers Care Farmworker Field Crop Name Role Phone Shawn Barber MD Unavailable [phone] Shawn Barber MD Primary Care Provider Wednesday, Randee SEGALN Unavailable [phone] Becca Campos CAR HOP Unavailable Hilary Frank RN Unavailable Kaylen Moore SENIOR SHAREPOINT DEVELOPER Unavailable Encounter Details Date Type Department Care Team (Late st Contact Info) Description 04/30/2023 Clinisync Result Encounter [facility] External Department Unsolicited Shawn Barber MD [address] [place] [address] Social History Tobacco Use Types [...] Score 1 11/25/2022 [facility] of Occupat ional Health - Occupational [...] [address] [facility] [address] [place] [address] Shawn Barber MD [address] [place] [address] 03/15/2025 3:10 PM EST Office Visit [facility] [address] [place] [address] Colt Mendieta, DPChris 3006 [facility] 5 [place] [address] documented as of this encounter Procedures Procedure Name Priority Date/Time Associated Diagnosis Comments XR DEXA AXIAL SKELETON 04/30/2023 11:25 AM EST documented in this encounter Results * XR DEXA AXIAL SKELETON (04/30/2023 11:25 AM EST) Anatomical Region Laterality Modality Other 04/30/2023 11:2 5 AM EST Narrative 04/30/2023 11:27 AM EST [address] [address] XRay Report Signed Patient: MARTIN MOORE MR#: [id number] : 1950 Acct:[id number] Age/Sex: 72 / F ADM Date: 04/30/23 Loc: CT Attending Dr: SHAWN BARBER Ordering Physician: SHAWN BARBER Date of Service: 04/30/23 Procedure(s): XR DEXA axial skeleton Accession Number(s): [id number] cc: SHAWN BARBER [address] [address] Patient Name: MARTIN MOORE MRN: [id number] date: 1950 Sex: F Assigned Patient Location: CT Current Patient Location: CT Accession/Order Number: [id number] Exam Date: 04/30/2023 10:10 Report Date: 04/30/2023 [...] MATA CONWAY Date: 04/30/2023 11:25 Dictated By: [place] Conway M.D. Signed By: 04/30/23 1127 DD/ 1125 TD/TT: Agricultural Commodities Inspector: Procedure Note Radiology, Radiologist, MD - 04/30/[address] [address] XRay Report Signed Patient: MARTIN MOORE MMR#: [id number] : 1950cct:[id number] Age/Sex: 72 / FADM Date: 04/30/23 Loc: CT Attending Dr: SHAWN BARBER Ordering Physician: SHAWN BARBER Date of Service: 04/30/23 Procedure(s): XR DEXA axial skeleton Accession Number(s): [id number] cc: SHANW BARBER [address] [address] Patient Name: MARTIN MOORE MRN: [id number] date: 1950 Sex: F Assigned Patient Location: CT Current Patient Location: CT Accession/Order Number: [id number] Exam Date: 04/30/2023 10:10 Report Date: 04/30/2023 [...] M.D. Signed By:04/30/23 1127 DD/ 1125 TD/TT: Agricultural Commodities Inspector: us Shawn Barber MD [facility] Final Result documented in this encounter Visit Diagnoses Not on filedocumented in this encounter Care Teams Farmworker Field Crop Relationship Specialty Start Date End Date Shawn Barber MD [address] [place] [address] PCP - ACO Reach 09/24/22 Shawn Barber MD [address] [place] [address] PCP - General Internal Medicine 10/22/22WednesdayRandee LPN [address] [place] [address] Licensed Practical Nurse Family Medicine 12/29/22 06/09/24 Becca Campos, CAR HOP [address] [place] [address] Vehicle Body Sander Family Medicine 12/29/22 08/24/24 Hilary Frank, RN [address] [place] [address] Licensed Practical Nurse Family Medicine 06/09/24 07/21/24 Kaylen Moore LPN [address] [place] [address] 07/21/24 documented as of this encounter
--- OUTSIDE RECORDS SUMMARY | 2025-01-30 09:57 | XMS_ITS | Clinical Summary ---
Author Organization [facility] Address [id number] [address] [place] [address] Care Team Providers Care District Plant Engineer Name Role Phone Shawn Barber MD Primary Care Provider [phone] Allergies No known active allergies Medications HYDROcodone-acet [...] Health Maintenance Due Date Last Done Comments DTaP,Tdap and Td Vaccines (1 - Tdap) 12/08/1967 Fall Risk Screening 2013 Zoster (Shingles) Vaccine (2 of 3) 04/02/2016 02/06/2016 Depression Screening 04/20/2024 04/20/2023 Tobacco Screening 04/20/2024 04/20/2023 Influenza Vaccine 01/01/2025 03/01/2023, , 01/31/2022, Additional history exists Medical Devices Not on file Insurance MEDICARE MEDICAID [place] Care Teams District Plant Engineer Relationship Specialty Start Date End Date Shawn Barber MD 112 [facility] 110 [place] [address] PCP - General Internal Medicine 09/04/17
--- OUTSIDE RECORDS SUMMARY | 2025-01-30 09:57 | XMS_ITS | Clinical Summary ---
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) 1 each every 14 (fourteen) days 6 each 3 Active dulaglutide (Trulicity) 0.75 MG/0.5ML solution pen-injector Inject 0.75 mg under the skin 1 (one) time per week Active acetaminophen (Tylenol) 500 MG tablet Take 1,000 mg by mouth Active Myrbetriq 50 MG 24 hr tablet Take 50 mg by mouth Daily Active metoprolol tartrate (Lopressor) 50 MG tabletIndications :Essential hypertension Take 1 tablet by mouth twice daily 180 tablet 3 Active Multiple Vitamins-Minerals (EYE VITAMINS PO) Take 1 tablet by mouth 1 (one) time each day Active potassium chloride CR (K-Tab) 20 MEQ ER tabletIndications :Hypokalemia Take 1 tablet (20 mEq) by mouth Daily 100 tablet 3 Active Additional Information Patient not taking.Reported on 11/17/2024 cholecalciferol (Vitamin D-3) 25 MCG (1000 UT) capsuleIndication s:Hypocalcemia Take 1 capsule (25 mcg) by mouth Daily 90 capsule 3 Active famotidine (Pepcid) 20 MG tablet Take 20 mg by mouth Daily Active calcium acetate (Phoslo) 667 MG capsule TAKE 2 CAPSULES BY MOUTH THREE TIMES DAILY WITH MEALS FOR 30 DAYS Active ammonium lactate (Amlactin) 12 % creamIndications: Xerosis cutis APPLY IF NEEDED TWICE DAILY TO DRY SKIN ON FEET 280 g Active pantoprazole (ProtoNix) 40 MG EC tabletIndications :Haddad's esophagus without dysplasia Take 1 tablet (40 mg) by mouth in the morning and 1 tablet (40 mg) before bedtime. 180 tablet 3 024 Active hyoscyamine (Levsin) 0.125 MG SL tabletIndications :Muscle spasm,Loose stools Take 1 tablet (0.125 mg) by mouth every 6 (six) hours if needed for cramping 60 tablet 2 025 Active Fluticasone-Salme terol 250-50 MCG/ACT aerosol powderIndications :Panlobular emphysema (HCC) Inhale 1 puff in the morning and 1 puff before bedtime. 60 each 5 025 Active dapagliflozin (Farxiga) 10 MGIndications:Cee betic mononeuropathy associated with type 2 diabetes mellitus (HCC) TAKE 1 TABLET BY MOUTH IN THE MORNING 30 tablet 11 025 Active Additional Information Patient not taking.Reported on 11/17/2024 FLUoxetine (PROzac) 40 MG capsuleIndication s:Depressive disorder Take 1 capsule by mouth in the morning 100 capsule 025 Active levETIRAcetam (Keppra) 250 MG tabletIndications :Seizure disorder (HCC) TAKE 1 TABLET BY MOUTH TWICE DAILY (MORNING AND BEDTIME) 180 tablet 025 Active Brexpiprazole (Rexulti) 1 MG tabletIndications :Depressive disorder Take 1 tablet by mouth once daily 30 tablet 11 025 Active ALPRAZolam (Xanax) 1 MG tabletIndications :Panic attacks Take 1 tablet (1 mg) by mouth 3 (three) times a day as needed for anxiety 90 tablet 2 025 Active tiZANidine (Zanaflex) 4 MG tabletIndications :Muscle spasm Take 1 tablet (4 mg) by mouth every 8 (eight) hours if needed for muscle spasms 90 tablet 3 025 Active predniSONE (Deltasone) 10 MG tablet 025 Active ferrous sulfate (SV Iron) 325 (65 Fe) MG tabletIndications :Anemia of renal disease Take 1 tablet (325 mg) by mouth in the morning and 1 tablet (325 mg) before bedtime. 180 tablet 3 025 Active nystatin (Mycostatin) 535993 UNIT/GM powderIndications :Intertrigo Apply topically in the morning and before bedtime. 60 g 025 Active torsemide (Demadex) 20 MG tablet TAKE 3 TABLETS BY MOUTH ONCE DAILY FOR 30 DAYS 025 Active apixaban (Eliquis) 5 MG tabletIndications :Paroxysmal atrial fibrillation (HCC) Take 1 tablet (5 mg) by mouth in the morning and 1 tablet (5 mg) before bedtime. 60 tablet 5 025 Active Ventolin HFA 108 (90 Base) MCG/ACT inhalerIndication s:Panlobular emphysema (HCC) INHALE 2 PUFFS BY MOUTH EVERY 4 HOURS NEEDED FOR WHEEZING FOR SHORTNESS OF BREATH 18 g 025 Active atorvastatin (Lipitor) 20 MG tabletIndications :Mixed hyperlipidemia Take 1 tablet (20 mg) by mouth Daily 90 tablet 3 025 Active furosemide (Lasix) 40 MG tablet Take 40 mg by mouth in the morning and 40 mg before bedtime. 025 Active midodrine (Proamatine) 5 MG tablet TAKE 1 TABLET BY MOUTH ONCE DAILY AT DIALYSIS AND NEEDED FOR LOW BLOOD PRESSURE 025 Active promethazine (Phenergan) 25 MG tabletIndications :Gastroesophageal reflux disease without esophagitis TAKE 1 TABLET BY MOUTH EVERY 6 HOURS NEEDED FOR NAUSEA AND VOMITING 120 tablet 025 Active MAGnesium-Oxide 400 (240 Mg) MG tabletIndications :Gastroesophageal reflux disease with esophagitis without hemorrhage Take 1 tablet by mouth twice daily 60 tablet 025 Active ondansetron (Zofran) 4 MG tabletIndications :Gastroesophageal reflux disease without esophagitis TAKE 1 TABLET BY MOUTH EVERY 6 HOURS NEEDED FOR NAUSEA FOR VOMITING 120 tablet 025 Active MAGnesium-Oxide 400 (240 Mg) MG tabletIndications :Gastroesophageal reflux disease with esophagitis without hemorrhage Take 1 tablet by mouth twice daily 180 tablet 3 024 2024 Discontinued ondansetron (Zofran) 4 MG tabletIndications :Gastroesophageal reflux disease without esophagitis TAKE 1 TABLET BY MOUTH EVERY 6 HOURS NEEDED FOR NAUSEA FOR VOMITING 120 tablet 025 2024 Discontinued promethazine (Phenergan) 25 MG tabletIndications :Gastroesophageal reflux disease without esophagitis TAKE 1 TABLET BY MOUTH EVERY 6 HOURS NEEDED FOR NAUSEA FOR VOMITING 120 tablet 025 2024 Discontinued Active Problems Problem Noted Date Diagnosed Date Impaired mobility and ADLs 12/20/2024 Chronic respiratory failure with hypoxia Anemia of renal disease 11/18/2023 Secondary renal [...] to decline pharmacological assistance. Pulmonary hypertension 03/30/2023 long term care pharmacist (current) use of anticoagulants 2022 Oxygen dependent 11/11/2022 Acute combined systolic and diastolic CHF, NYHA class 3 11/10/2022 Aortic valve disorder 11/10/2022 Bilateral hearing loss 11/10/2022 Bilateral tinnitus 11/10/2022 Diabetic renal disease 11/10/2022 Epilepsy, unspecified, not i ntractable, without status epilepticus 11/10/2022 Hypertensive heart disease w ith congestive heart failure and chronic kidney disease 11/10/2022 Nonalcoholic steatohepatitis (RASMUSSEN) 11/10/2022 Protein malnutrition (HHS-HCC) 11/10/2022 Sensorineural hearing [...] Loose stools 04/13/2022 Lower abdominal pain 04/13/2022 Muscle spasm 04/13/2022 Panic attacks 04/13/2022 [...] kidney injury superimposed on CKD 11/18/2023 11/18/2023 Obesity (BMI 30-39.9) 11/10/20222024 Stage 3 chronic kidney disease 11/10/2022 11/03/2023 Morbid obesity 04/13/2022 2024 Acute sinusitis 08/20/2017 12/01/2023 Encounters Date Type Department Care Team Description 01/30/2025 [facility] [address] [facility] [address] [place] [address] Shawn Barber MD 01/29/2025 [facility] [address] [facility] [address] [place] [address] Shawn Barber MD 01/12/2025 Refill [facility] [address] [facility] [address] [place] [address] [address], [place] Gastroesophageal reflux disease with esophagitis without hemorrhage; Gastroesophageal reflux disease without esophagitis 01/12/2025 Refill [facility] [address] [facility] [address] [place] [address] Shawn Barber MD Gastroesophageal reflux disease without esophagitis 01/04/2025 3:00 PM EDT Office Visit [facility] [address] [place] [address] [place] [address] Colt Mendieta, DPM Diabetes mellitus due to underlying condition with diabetic polyneuropathy, unspecified whether shelter insulin use (HCC) (Primary Dx); Pain due to onychomycosis of toenails of both feet; Xerosis cutis 01/04/2025 Travel 01/04/2025 Abstract [facility] [address] [facility] [address] [place] [address] Shawn Barber MD 01/02/2025 Patient Outreach [facility] [address] [place] [address] Kaylen Moore LPN 12/26/2024 Patient Outreach [facility] [address] [place] [address] Kaylen Moore, NIKHIL 12/26/2024 [facility]ill [facility] [address] [facility] [address] [place] [address], [place] Mixed hyperlipidemia 12/23/2024 [facility]ill [facility] [address] [facility] [address] [place] [address], [place] Mixed hyperlipidemia 12/20/2024 Patient Outreach [facility] [address] [place] [address] Kaylen Moore LPN 12/19/2024 Abstract [facility] [address] [facility] [address] [place] [address] Shawn Barber MD 12/19/2024 Abstract [facility] [place] [facility] [address] [facility] [address] [place] [address] Shawn Barber MD 12/19/2024 Refill [facility] [place] [facility] [address] [facility] [address] [place] [address] [place] Intertrigo 12/18/2024 Patient Outreach [facility] [address] [place] [address] Kaylen Moore LPN 12/18/2024 Abstract [facility] [place] [facility] [address] [place] [address] [place] [address] Shawn Barber MD 12/15/2024 Refill [facility] [address] [place] [address] [place] [address] [place] Panlobular emphysema (HCC) 12/14/2024 Abstract [facility] [address] [facility] [address] [place] [address] Shawn Barber MD 12/13/2024 Abstract [facility] [place] [facility] [address] [facility] [address] [place] [address] Shawn Barber MD 12/13/2024 Abstract [facility] [place] [address] [facility] [address] [place] [address] Shawn Barber MD 12/11/2024 Patient Outreach [facility] [address] [place] [address] Kaylen Moore LPN 2024 10:30 AM EDT Office Visit [facility] [place] [facility] [address] [facility] [address] [place] [address] [place] Paroxysmal atrial fibrillation (HCC) (Primary Dx); Psoriatic arthritis (HCC); CKD (chronic kidney disease) stage 4, GFR 15-29 ml/min (HCC); Acute renal failure on dialysis ; Chronic respiratory failure with hypoxia (HCC); Hyperkalemia; Aortic valve stenosis, etiology of cardiac valve disease unspecified; Impaired mobility and ADLs 2024 Bamboo flowsheet [facility] [address] [place] [address] [place] [address] [place] 2024 Travel 12/04/2024 Patient Outreach [facility] [address] [place] [address] Kaylen Moore, CLASSIFIED ADVERTISING SUPERVISOR 12/04/2024 Telephone [facility] [address] [place] [address] [place] [address] BeckyRachel, CLASSIFIED ADVERTISING SUPERVISOR 12/01/2024 Patient Outreach [facility] [address] [place] [address] Kaylen Moore, CLASSIFIED ADVERTISING SUPERVISOR 11/30/2024 Telephone [facility] [address] [place] [address] [place] [address] Shawn Barber MD 11/30/2024 Abstract [facility] [address] [place] [address] [place] [address] Shawn Barber MD 11/30/2024 Abstract [facility] [address] [place] [address] [place] [address] Shawn Barber MD 11/30/2024 Abstract [facility] [address] [place] [address] [place] [address] Shawn Barber MD 11/30/2024 Abstract [facility] [address] [place] [address] [place] [address] Shawn Barber MD 11/30/2024 Abstract [facility] [address] [place] [address] [place] [address] Shawn Barber MD 11/30/2024 Abstract [facility] [address] [place] [address] [place] [address] Shawn Barber MD 11/30/2024 Abstract [facility] [address] [facility] [address] [place] [address] Shawn Barber MD 11/28/2024 Patient Outreach [facility] [address] [place] [address] Becca CamposBALDEMARW 11/22/2024 Abstract [facility] [address] [place] [address] Kaylen Moore LPN 11/21/2024 3:00 PM EDT Office Visit [facility] [address] [facility] [address] [place] [address] [address] [place] Chronic respiratory failure with hypoxia (HCC) (Primary Dx); Hyperkalemia; Oxygen dependent; Chronic diastolic congestive heart failure (HCC); Acute combined systolic and diastolic CHF, NYHA class 3 (HCC); Paroxysmal atrial fibrillation (HCC); Pitting edema; Essential hypertension ; Peripheral venous insufficiency; CKD (chronic kidney disease) stage 4, GFR 15-29 ml/min (HCC); Anemia of renal disease; Intertrigo 11/21/2024 Bamboo flowsheet [facility] [address] [facility] [address] [place] [address] [address] [place] 11/21/2024 Travel 11/20/2024 Abstract [facility] [address] [facility] [address] [place] [address] Shawn Barber MD 11/17/2024 Patient Outreach [facility] [address] [place] [address] Kaylen Moore LPN 11/17/2024 Abstract [facility] [address] [place] [address] Kaylen Moore LPN 11/16/2024 Patient Outreach [facility] [address] [place] [address] Kaylen Moore LPN 11/15/2024 [facility] [address] [facility] [address] [place] [address] Shawn Barber MD 11/14/2024 Clinisync Result Encounter [facility] External Department Unsolicited Provider, Generic External Data 11/07/2024 Abstract [facility] [place] [facility] [address] [facility] [address] [place] [address] Shawn Barber MD from Last 3 Months [...] Recorded Patient Health Questionnaire-2 Score 0 2024 [facility] - Occupational [...] any time in the past 12 m [facility], were you homeless or living in a chcf (including now)? No 12/06/2023 Comments Unknown Sex and Gender Information Value Date Recorded Sex Assigned at Not on file Legal Sex Female 6:46 PM EDT Gender Identity Not on file Sexual Orientation Not on file Last Filed Vital Signs Vital Sign Reading Time Taken Comments Blood Pressure 134/72 2024 9:44 AM EDT Pulse 63 2024 9:44 AM EDT Temperature - - Respiratory Rate 16 01/04/2025 2:54 PM EDT Oxygen Saturation 81% 2024 9:4 4 AM EDT doing 2 liters of O2 but home she is on 3 L Inhaled Oxygen Concentration - - Weight 64.4 kg (142 lb) 01/04/2025 2:54 PM EDT Height 160 cm (5' 3 ) 01/04/2025 2:54 PM EDT Body Mass Index 25.15 01/04/2025 2:54 PM EDT Plan of Treatment Upcoming Encounters Date Type Department Care Team (Late st Contact Info) Description 02/05/2025 2:00 PM EDT Office Visit [facility] [address] [facility] [address] [place] [address] Shawn Barber MD [address] [facility] [address] [place] [address] 03/15/2025 3:10 PM EST Office Visit [facility] [address] [facility] [address] [place] [address] Colt Mendieta, DPM [address] [facility] 5 [place] [address] Health Maintenance Due Date Last Done Comments Lung Cancer Screening Shared Decision Making 1950 Diabetes: Hemoglobin A1C 10/17/2024 025, 01/17/2024, 10/13/2023, Additional history exists Diabetes: Urine Protein Screening 10/31/2024 11/01/2023, 07/05/2019, 12/26/2018, Additional history exists Influenza Vaccine (#1) 2025 , 03/01/2023, 02/05/2022, Additional history exists Diabetes: Retinopathy Screening 12/19/2025 12/20/2023, 08/18/2021, 05/22/2020, Additional history exists Colonoscopy Discontinued 02/16/2022, 06/2019, 05/11/2017 Colorectal Cancer Screening Discontinued Pneumococcal Vaccine: 65+ Years Completed 05/20/2023, 02/03/2016, 04/12/2015, Additional history exists Mammogram Discontinued 06/02/2024, 04/02, 04/12/2023, Additional history exists CT Colonography Discontinued FIT-DNA Discontinued FIT Discontinued FOBT Discontinued Sigmoidoscopy Discontinued Procedures Procedure Name Priority Date/Time Associated Diagnosis Comments URINE CULTURE - [facility] Routine 11/14/2024 8:00 AM EDT POCT GLYCATED HEMOGLOBIN, TOTAL Routine 07/17/2024 2:46 [...] Recently Relevant to Health Maintenance Results * URINE CULTURE - [facility] (11/14/2024 8:00 AM EDT) [facility] URINE CULTURE - [facility] Urine Culture - [facility] >100,000 colonies/ml mixed [facility] URINE CULTURE - [facility] bacterial skin contaminants [facility] URINE CULTURE - [facility] including mixed gram negative [facility] URINE CULTURE - [facility] bacilli- 2 Days [facility] URINE CULTURE - [facility] URINE CULTURE - [facility] Testing performed at [facility] URINE CULTURE - [facility] [address] [place] [address] [facility] 11/14/2024 8:00 AM EDT 11/14/2024 9:28 AM EDT Narrative [facility] - 11/16/2024 12:06 PM EDT us Generic External Data Provider LAB BLOOD ORDERAB LES Final Result [facility] * POCT Glycated hemoglobin, total (07/17/2024 2:46 PM EDT) Hemoglobin A1C 5.4 Blood 07/17/2024 2:46 PM EDT Shawn Barber MD POINT OF CARE TEST ENTER/EDIT ORDERABLES Final Result * Bilateral screening mammogram (06/02/2024 3:47 PM EST) Anatomical Region Laterality Modality Breast Bilateral Mammography 06/02/2024 3:47 PM EST Narrative 06/02/2024 3:48 [place] [address] Mammography Report Signed Patient: MARTIN MOORE MR#: [id number] : 1950 Acct:[id number] Age/Sex: 73 / F ADM Date: 06/02/24 Loc: MAMMO Attending Dr: SHAWN BARBER Ordering Physician: SHAWN BARBER Results: Date of Service: 06/02/24 Follow Up: Procedure(s): MM screening mammo BI Accession Number(s): [id number] cc: SHAWN BARBER Patient Name: MARTIN MOORE MR#: [id number] : 1950 Exam Date: 06/02/2024 Ordering Doctor: DR SHAWN BARBER M.D. RADIOLOGY REPORT PROCEDURE: MM SCREENING MAMMO BI COMPARISON: MM SCREENING MAMMO BI, 04/12/2023. INDICATIONS: Screening Calculator Name NCI Breast Cancer Risk Assessment Tool 5 Year Breast Cancer Risk 1.90% Lifetime Breast Cancer Risk 4.00% Personal Breast Cancer No Personal Ovarian Cancer No Treatments None Family Cancers None LOCATION: [facility] BREAST COMPOSITION: The breasts are almost [...] Blackwell M.D. Signed By: 06/02/24 1548 DD/ 154 TD/TT: [employer]: Procedure Note Radiology, Radiologist, - 06/02/2024 [place] [address] Mammography Report Signed Patient: MARTIN MOORE MMR#: [id number] : 9Acct:[id number] Age/Sex: 73 / FADM Date: 06/02/24 Loc: MAMMO Attending Dr: SHAWN BARBER Ordering Physician: Goyo BARBERults: Date of Service: 06/02/24Follow Up: Procedure(s): MM screening mammo BI Accession Number(s): [id number] cc: SHAWN BRABER Patient Name: MARTIN MOORE MR#: [id number] : 1950 Exam Date: 06/02/2024 Ordering Doctor: DR SHAWN BARBER M.D. RADIOLOGY REPORT PROCEDURE: MM SCREENING MAMMO BI COMPARISON: MM SCREENING MAMMO BI, 04/12/2023. INDICATIONS: Screening Calculator Name NCI Breast Cancer Risk Assessment Tool 5 Year Breast Cancer Risk 1.90% Lifetime Breast Cancer Risk 4.00% Personal Breast Cancer No Personal Ovarian Cancer No Treatments None Family Cancers None LOCATION: [facility] BREAST COMPOSITION: The breasts are almost [...] Eitan Blackwell M.D. Signed By:06/02/24 1548 DD/ 154 TD/TT: [employer]: us Shawn Barber MD IMG BI PROCEDURES Final Result * (ABNORMAL) Diabetic Retinopathy Screening - OU - Both Eyes (12/20/2023) RESULTS abn Anatomical Region Laterality Modality Head Other 12/20/2023 us Shawn Barber MD OPHTH PHOTOGRAPHY Final Result * Colonoscopy (02/02/2020 12:00 PM EDT) Anatomical Region Laterality Modality Endoscopy 02/02/2020 12:0 0 PM EDT Narrative 02/02/2020 12:00 PM EDT PERFORMED AT [facility] LOCATION:[id number] polyp-tub.adenoma,diverticulosis-repeat 3 years Procedure Note CONVERSION, GENERIC - 09/16/2022 PERFORMED AT [facility] LOCATION:[id number] polyp-tub.adenoma,diverticulosis-repeat 3 years us Shawn Barber MD ENDOSCOPY PROCEDURE ORDERABLES Final Result * Microalbumin / creatinine urine ratio (07/05/2019) UCREA 91 28 - 217 [facility] MALB 18.3 [facility] Comment:mALB reference range not established. MICROALB/CREAT RATIO 201.1 [facility] 07/05/2019 us Shawn Barber MD LAB URINE ORDERABLES Final Res ult Performing Organization Address City/State/[facility] Co de Phone Number [facility] from Last 3 Months or Most Recently Relevant to Health Maintenance Insurance MEDICARE [place]ICAID [place] Advance Directives Documents on File Type Date Recorded Patient Cdl Bulk Driver Expl anation Advance Directives and Living Will 05/29/20222021-08- [facility] Care Teams Soot Blower Relationship Specialty Start Date End Date Shawn Barber MD [address] [address] PCP - ACO Reach 09/24/22 Shawn Barber MD [address] [facility] [address] [place] [address] PCP - General Internal Medicine 10/22/22 Kaylen Moore LPN [address] [facility] [address] [place] [address] 07/21/24
--- OUTSIDE RECORDS SUMMARY | 2025-01-30 09:57 | XMS_ITS | Encounter Summary ---
Author Organization [facility] Address [address] [facility] [place] [address] Care Team Providers Care Environmental Scientists Name Role Phone Shawn Barber MD Unavailable [phone] Shawn Barber MD Primary Care Provider Wednesday, Randee STRATEGIC SOURCING MANAGER Unavailable [phone] Becca Campos MANAGER COMMUNITY OUTREACH Unavailable Hilary Frank RN Unavailable Kaylen Moore STRATEGIC SOURCING MANAGER Unavailable Encounter Details Date Type Department Care Team (Late st Contact Info) Description 09/29/2023 Abstract [facility] [place] [facility] 112 [facility] 110 [place] [address] Shawn Barber MD 112 [facility] 110 [place] [address] Social History Tobacco Use Types [...] Questionnaire-2 Score 1 11/25/2022 [facility] [place] of Occupat ional Health - Occupational Stress [...] [address] [facility] 110 [place] [address] Shawn Barber MD [address] [facility] 110 [place] [address] 03/15/2025 3:10 PM EST Office Visit [facility] [address] [place] [address] Colt Mendieta, DPM 3006 [facility] 5 [place] [address] documented as of this encounter Visit Diagnoses Not on filedocumented in this encounter Care Teams Environmental Scientists Relationship Specialty Start Date End Date Shawn Barber MD [address] [place] [address] PCP - ACO Reach 09/24/22 Shawn Barber MD [address] [place] [address] PCP - General Internal Medicine 10/22/22WednesdayRandee LPN [address] [place] [address] Licensed Practical Nurse Family Medicine 12/29/22 06/09/24 Becca Campos, NAY [address] [place] [address] Clam Dredger Family Medicine 12/29/22 08/24/24 Hilary Frank, RN [address] [place] [address] Licensed Practical Nurse Family Medicine 06/09/24 07/21/24 Kaylen Moore LPN [address] [place] [address] 07/21/24 documented as of this encounter
--- OUTSIDE RECORDS SUMMARY | 2025-01-30 09:57 | XMS_ITS | Encounter Summary ---
Author Organization [facility] Address [address] [facility] [place] [address] Care Team Providers Care Order Entry Clerk Name Role Phone Shawn Barber MD Unavailable [phone] Shawn Barber MD Primary Care Provider [phone] Wednesday, Randee DEVELOPMENT TRAINER Unavailable [phone] Becca Campos SOLAR INSTALLATION HELPER Unavailable Hilary Frank RN Unavailable [phone] Kaylen Moore DEVELOPMENT TRAINER Unavailable Encounter Details Date Type Department Care Team (Late st Contact Info) Description 05/04/2023 Abstract [facility] [place] [facility] 112 [facility] 110 [place] [address] Shawn Barber MD 112 [facility] 110 [place] [address] Social History Tobacco Use [...] Recorded Patient Health Questionnaire-2 Score 1 11/25/2022 [facility] of Occupat ional Health [...] Office Visit [facility] [place] [facility] 112 [facility] 110 [place] [address] Shawn Barber MD 112 [facility] 110 [place] [address] 03/15/2025 3:10 PM EST Office Visit [facility] [address] [place] [address] Colt Mendieta, DPChris 3006 [facility] 5 [place] [address] documented as of this encounter Visit Diagnoses Not on filedocumented in this encounter Care Teams Order Entry Clerk Relationship Specialty Start Date End Date Shawn Barber MD [address] [place] [address] PCP - ACO Reach 09/24/22 Shawn Barber MD [address] [facility] 110 [place] [address] PCP - General Internal Medicine 10/22/22WednesdayRandee LPN [address] [place] [address] Licensed Practical Nurse Family Medicine 12/29/22 06/09/24 Becca Campos, SOLAR INSTALLATION HELPER [address] [place] [address] Lathe Tender Family Medicine 12/29/22 08/24/24 Hilary Frank, RN [address] [place] [address] Licensed Practical Nurse Family Medicine 06/09/24 07/21/24 Kaylen Moore LPN [address] [place] [address] 07/21/24 documented as of this encounter
--- OUTSIDE RECORDS SUMMARY | 2025-01-30 09:57 | XMS_ITS | Encounter Summary ---
Author Organization [facility] Address [address] [facility] [place] [address] Care Team Providers Care Tax Collection Coordinator Name Role Phone Shawn Barber MD Unavailable [phone] Shawn Barber MD Primary Care Provider Wednesday, Randee TRAINING AND DOCUMENTATION SPECIALIST Unavailable [phone] Becca Campos ENTERPRISE SYSTEMS ADMINISTRATOR Unavailable Hilary Frank RN Unavailable [phone] Kaylen Moore TRAINING AND DOCUMENTATION SPECIALIST Unavailable Encounter Details Date Type Department Care Team (Late st Contact Info) Description 08/12/[address] [place] [facility] 112 [facility] 110 [place] [address] Shawn Barber MD 112 [facility] 110 [place] [address] Social History Tobacco Use Types [...] any clubs o r organizations such as christianity groups, unions, fraternal or athletic groups, or [...] Recorded Patient Health Questionnaire-2 Score 1 11/25/2022 [facility] of Occupat ional Health - Occupational Stress [...] Visit [facility] [place] [facility] [address] [facility] 110 [place] [address] Shawn Barber MD [address] [facility] 110 [place] [address] 03/15/2025 3:10 PM EST Office Visit [facility] [address] [place] [address] Cotl Mendieta, DPM 3006 [facility] 5 [place] [address] documented as of this encounter Visit Diagnoses Not on filedocumented in this encounter Care Teams Tax Collection Coordinator Relationship Specialty Start Date End Date Shawn Barber MD [address] [place] [address] PCP - ACO Reach 09/24/22 Shawn Barber MD [address] [place] [address] PCP - General Internal Medicine 10/22/22WednesdayRandee LPN [address] [place] [address] Licensed Practical Nurse Family Medicine 12/29/22 06/09/24 Becca Campos, NAY [address] [place] [address] Manager Specialty Family Medicine 12/29/22 08/24/24 Hilary Frank, RN [address] [place] [address] Licensed Practical Nurse Family Medicine 06/09/24 07/21/24 Kaylen Moore LPN [address] [place] [address] 07/21/24 documented as of this encounter
--- OUTSIDE RECORDS SUMMARY | 2025-01-30 09:57 | XMS_ITS | Encounter Summary ---
Author Organization [facility] Address [address] [facility] [place] [address] Care Team Providers Care Agency Service Coordinator Name Role Phone Shawn Barber MD Unavailable [phone] Shawn Barber MD Primary Care Provider [phone] Wednesday, Randee STRAIGHTENING MACHINE OPERATOR Unavailable Becca Campos ECONOMETRICIAN Unavailable [phone] Hilary Frank RN Unavailable [phone] Kaylen Moore STRAIGHTENING MACHINE OPERATOR Unavailable Encounter Details Date Type Department Care Team (Late st Contact Info) Description 05/04/2023 [facility] Only [facility] [place] [facility] [address] [place] [address] [place] [address] A, Unknown Practice [address] [place], [place] [address] Social History Tobacco Use Types Packs/Day Years [...] Patient Health Questionnaire-2 Score 1 11/25/2022 [facility] of Occupat ional [...] [address] [facility] 110 [place] [address] Shawn Barber MD [address] [facility] 110 [place] [address] 03/15/2025 3:10 PM EST Office Visit [facility] [address] [place] [address] [place] [address] Colt Mendieta DPM 3006 [facility] 5 [place] [address] documented as of this encounter Procedures Procedure [...] filedocumented in this encounter Care Teams Agency Service Coordinator Relationship Specialty Start Date End Date Shawn Barber MD [address] [facility] 110 [place] [address] PCP - ACO Reach 09/24/22 Shawn Barber MD [address] [facility] 110 [place] [address] PCP - General Internal Medicine 10/22/22WednesdayRandee LPN [address] [place] [address] Licensed Practical Nurse Family Medicine 12/29/22 06/09/24 Becca Campos, ECONOMETRICIAN [address] [place] [address] Direct Support Worker Family Medicine 12/29/22 08/24/24 Hilary Frank, RN 2644 [place] [address] Licensed Practical Nurse Family Medicine 06/09/24 07/21/24 Kaylen Moore LPN [address] [address] 07/21/24 documented as of this encounter
--- OUTSIDE RECORDS SUMMARY | 2025-01-30 09:57 | XMS_ITS | Encounter Summary ---
Author Organization [facility] Address [address] [place] [address] Phone Care Team Providers Care Loan Manager Name Role Phone Shawn Barber MD Primary Care Provider [phone] Shawn Barber MD Unavailable [phone] Encounter Details Date Type Department Care Team (Late st Contact Info) Description 11/21/2024 Scanned Document [facility] [address] [place] [address] Scanning, Generic Provider Social History [...] Description 02/15/2025 3:00 PM EDT Office Visit [facility] 703 [facility] [address] [place] [address] Rey Canela DO 703 [facility] 2, [address] [place] [address] 05/08/2025 2:30 PM EST Appointment [facility] [address] [place] [address] 05/10/2025 2:20 PM EST Office Visit [facility] [address] [place] [address] Rey Canela, DO [address], [address] [place] [address] documented as of this encounter Procedures Procedure Name Priority Date/Time Associated Diagnosis Comments OUTSIDE IMAGING SCAN 11/21/2024 documented in this encounter Results * OUTSIDE IMAGING SCAN (11/21/2024) Anatomical Region [...] documented as of this encounter Care Teams Loan Manager Relationship Specialty Start Date End Date Shawn Barber MD [address] [facility] 110 [place] [address] PCP - General 12/28/22 Shawn Barber MD [address] [facility] 110 [place] [address] 12/28/22 documented as of this encounter
--- OUTSIDE RECORDS SUMMARY | 2025-01-30 09:57 | XMS_ITS | Encounter Summary ---
Author Organization [facility] Address [address] [place] [address] Phone Care Team Providers Care Semiconductor Packages Leak Tester Name Role Phone Shawn Barber MD Primary Care Provider [phone] Shawn Barber MD Unavailable [phone] Encounter Details Date Type Department Care Team (Late st Contact Info) Description 11/23/2024 Scanned Document [facility] [address] [place] [address] Scanning, Generic Provider Social History [...] Description 02/15/2025 3:00 PM EDT Office Visit [facility] 703 [facility] [address] [place] [address] Rey Canela DO 703 [facility] 2, [address] [place] [address] 05/08/2025 2:30 PM EST Appointment [facility] [address] [place] [address] 05/10/2025 2:20 PM EST Office Visit [facility] 7[address] [facility] [address] [place] [address] Rey Canela DO 703 [facility] [address], [address] [place] [address] documented as of this encounter Visit Diagnoses Not on filedocumented in this encounter Additional Health Concerns Assessment Noted Time PHQ-9 Depression Total Score: 11 023 2:33 PM EDT A fall risk assessment has been complete d for the patient 11/06/2024 1:03 PM EDT documented as of this encounter Care Teams Semiconductor Packages Leak Tester Relationship Specialty Start Date End Date Shawn Barber MD [address] [facility] [address] [place] [address] PCP - General 12/28/22 Shawn Barber MD [address] [facility] 110 [place] [address] 12/28/22 documented as of this encounter
--- OUTSIDE RECORDS SUMMARY | 2025-01-30 09:57 | XMS_ITS | Encounter Summary ---
Author Organization [facility] Address [address] [facility] [place] [address] Care Team Providers Care Refrigeration Specialist Name Role Phone Shawn Barber MD Unavailable [phone] Shawn Barber MD Primary Care Provider [phone] Wednesday, Randee DOPE WORKER Unavailable [phone] Becca Campos DIRECTOR OF PHYSICAL THERAPY Unavailable Hilary Frank RN Unavailable Kaylen Moore DOPE WORKER Unavailable Encounter Details Date Type Department Care Team (Late st Contact Info) Description 10/07/2023 Abstract [facility] [place] [facility] 112 [facility] 110 [place] [address] Shawn Barber MD 112 [facility] 110 [place] [address] Social History Tobacco Use Types [...] Recorded Patient Health Questionnaire-2 Score 1 11/25/2022 [facility] of Occupat ional Health - Occupational Stress [...] Visit [facility] [place] [facility] [address] [facility] 110 [place] [address] Shawn Barber MD [address] [facility] 110 [place] [address] 03/15/2025 3:10 PM EST Office Visit [facility] [address] [place] [address] Colt Mendieta, DPM 3006 [facility] 5 [place] [address] documented as of this encounter Visit Diagnoses Not on filedocumented in this encounter Care Teams Refrigeration Specialist Relationship Specialty Start Date End Date Shawn Barber MD [address] [place] [address] PCP - ACO Reach 09/24/22 Shawn Barber MD [address] [place] [address] PCP - General Internal Medicine 10/22/22WednesdayRandee LPN [address] [place] [address] Licensed Practical Nurse Family Medicine 12/29/22 06/09/24 Becca Campos, NAY [address] [place] [address] Community Arts Officer Family Medicine 12/29/22 08/24/24 Hilary Frank, RN [address] [place] [address] Licensed Practical Nurse Family Medicine 06/09/24 07/21/24 Kaylen Moore LPN [address] [place] [address] 07/21/24 documented as of this encounter
--- OUTSIDE RECORDS SUMMARY | 2025-01-30 09:57 | XMS_ITS | Encounter Summary ---
Author Organization [facility] Address [address] [place] [address] Phone Care Team Providers Care Natural Science Curator Name Role Phone Shawn Barber MD Primary Care Provider [phone] Shawn Barber MD Unavailable [phone] Encounter Details Date Type Department Care Team (Late st Contact Info) Description 11/30/2024 Scanned Document [facility] [address] [place] [address] Scanning, Generic Provider Social History [...] Description 02/15/2025 3:00 PM EDT Office Visit [facility] 703 [facility] [address] [place] [address] Rey Canela DO 703 [facility] 2, [address] [place] [address] 05/08/2025 2:30 PM EST Appointment [facility] [address] [place] [address] 05/10/2025 2:20 PM EST Office Visit [facility] 703 [facility] [address] [place] [address] Rey Canela DO 703 [facility] [address], [address] [place] [address] documented as of this encounter Visit Diagnoses Not on filedocumented in this encounter Additional Health Concerns Assessment Noted Time PHQ-9 Depression Total Score: 11 023 2:33 PM EDT A fall risk assessment has been complete d for the patient 11/06/2024 1:03 PM EDT documented as of this encounter Care Teams Natural Science Curator Relationship Specialty Start Date End Date Shawn Barber MD [address] [facility] 110 [place] [address] PCP - General 12/28/22 Shawn Barebr MD [address] [facility] 110 [place] [address] 12/28/22 documented as of this encounter
--- OUTSIDE RECORDS SUMMARY | 2025-01-30 09:57 | XMS_ITS | Encounter Summary ---
Author Organization [facility] Address [address] [facility] [place] [address] Care Team Providers Care Hot Patcher Name Role Phone Shawn Barber MD Unavailable [phone] Shawn Barber MD Primary Care Provider [phone] Wednesday, Randee OIL SPRAYER Unavailable [phone] Becca Campos CALLIOPE PLAYER Unavailable Hilary Frank RN Unavailable Kaylen Moore OIL SPRAYER Unavailable Encounter Details Date Type Department Care Team (Late st Contact Info) Description 08/25/2023 Abstract [facility] [place] [facility] [address] [facility] 110 [place] [address] Shawn Barber MD 112 [facility] 110 [place] [address] Social History Tobacco Use Types [...] Questionnaire-2 Score 1 11/25/2022 [facility] of Occupat ional Health - Occupational Stress [...] [facility] [place] [facility] [address] [facility] 110 [place] [address] Shawn Barber MD [address] [facility] 110 [place] [address] 03/15/2025 3:10 PM EST Office Visit [facility] [address] [place] [address] Colt Mendieta, DPM 3006 [facility] 5 [place] [address] documented as of this encounter Visit Diagnoses Not on filedocumented in this encounter Care Teams Hot Patcher Relationship Specialty Start Date End Date Shawn Barber MD [address] [place] [address] PCP - ACO Reach 09/24/22 Shawn Barber MD [address] [place] [address] PCP - General Internal Medicine 10/22/22WednesdayRandee LPN [address] [place] [address] Licensed Practical Nurse Family Medicine 12/29/22 06/09/24 Becca Campos, NAY [address] [place] [address] Fashion Styling Intern Family Medicine 12/29/22 08/24/24 Hilary Frank, RN [address] [place] [address] Licensed Practical Nurse Family Medicine 06/09/24 07/21/24 Kaylen Moore LPN [address] [place] [address] 07/21/24 documented as of this encounter
--- OUTSIDE RECORDS SUMMARY | 2025-01-30 09:58 | XMS_ITS | Encounter Summary ---
Author Organization [facility] Address [address] [facility] [place] [address] Care Team Providers Care Technical Documentation Specialist Name Role Phone Shawn Barber MD Unavailable [phone] Shawn Barber MD Primary Care Provider [phone] Wednesday, Randee PYTHON DEVELOPER Unavailable [phone] Becca Campos CHIEF LIBRARIAN EXTENSION DEPARTMENT Unavailable Hilary Frank RN Unavailable [phone] Kaylen Moore PYTHON DEVELOPER Unavailable Encounter Details Date Type Department Care Team (Late st Contact Info) Description 07/07/2023 Abstract [facility] [place] [facility] 112 [facility] 110 [place] [address] Shawn Barber MD 112 [facility] 110 [place] [address] Social History Tobacco Use Types [...] Recorded Patient Health Questionnaire-2 Score 1 11/25/2022 [facility] of Occupat ional Health - Occupational Stress [...] 02/05/2025 2:00 PM EDT Office Visit [facility] [place] [facility] [address] [facility] 110 [place] [address] Shawn Barber MD [address] [facility] 110 [place] [address] 03/15/2025 3:10 PM EST Office Visit [facility] [address] [place] [address] Colt Mendieta, DPM 3006 [facility] 5 [place] [address] documented as of this encounter Visit Diagnoses Not on filedocumented in this encounter Care Teams Technical Documentation Specialist Relationship Specialty Start Date End Date Shawn Barber MD [address] [place] [address] PCP - ACO Reach 09/24/22 Shawn Barber MD [address] [place] [address] PCP - General Internal Medicine 10/22/22WednesdayRandee LPN [address] [place] [address] Licensed Practical Nurse Family Medicine 12/29/22 06/09/24 Becca Campos, NAY [address] [place] [address] Green Building Engineer Family Medicine 12/29/22 08/24/24 Hilary Frank, RN [address] [place] [address] Licensed Practical Nurse Family Medicine 06/09/24 07/21/24 Kaylen Moore LPN [address] [place] [address] 07/21/24 documented as of this encounter
--- OUTSIDE RECORDS SUMMARY | 2025-01-30 09:58 | XMS_ITS | Encounter Summary ---
Author Organization [facility] Address [address] [facility] [place] [address] Care Team Providers Care Cab Starter Name Role Phone Shawn Barber MD Unavailable [phone] Shawn Barber MD Primary Care Provider Wednesday, Randee JUMPBASTING LINING BASTER Unavailable [phone] Becca Campos DATA WAREHOUSE SPECIALIST Unavailable [phone] Hilary Frank RN Unavailable [phone] Kaylen Moore JUMPBASTING LINING BASTER Unavailable Encounter Details Date Type Department Care Team (Late st Contact Info) Description 10/19/2023 Abstract [facility] [place] [facility] 112 [facility] 110 [place] [address] Shawn Barber MD 112 [facility] 110 [place] [address] Social History Tobacco Use Types [...] Questionnaire-2 Score 1 11/25/2022 [facility] of Occupat ional Health - Occupational Stress [...] Visit [facility] [place] [facility] [address] [facility] 110 [place] [address] Shawn Barber MD [address] [facility] 110 [place] [address] 03/15/2025 3:10 PM EST Office Visit [facility] [address] [place] [address] Colt Mendieta, DPM 3006 [facility] 5 [place] [address] documented as of this encounter Visit Diagnoses Not on filedocumented in this encounter Care Teams Cab Starter Relationship Specialty Start Date End Date Shawn Barber MD [address] [place] [address] PCP - ACO Reach 09/24/22 Shawn Barber MD [address] [place] [address] PCP - General Internal Medicine 10/22/22WednesdayRandee LPN [address] [place] [address] Licensed Practical Nurse Family Medicine 12/29/22 06/09/24 Becca Campos, NAY [address] [place] [address] Summer Law Associate Family Medicine 12/29/22 08/24/24 Hilary Frank, RN [address] [place] [address] Licensed Practical Nurse Family Medicine 06/09/24 07/21/24 Kaylen Moore LPN [address] [place] [address] 07/21/24 documented as of this encounter
--- OUTSIDE RECORDS SUMMARY | 2025-01-30 09:58 | XMS_ITS | Encounter Summary ---
Author Organization [facility] Address [address] [facility] [place] [address] Care Team Providers Care Balloon Pilot Name Role Phone Shawn Barber MD Unavailable [phone] Shawn Barber MD Primary Care Provider Wednesday, Randee MANIFOLD OPERATOR Unavailable [phone] Becca Campos PATIENT INTAKE REPRESENTATIVE Unavailable Hilary Frank RN Unavailable [phone] Kaylen Moore MANIFOLD OPERATOR Unavailable Encounter Details Date Type Department Care Team (Late st Contact Info) Description 07/07/2023 Abstract [facility] [place] [facility] 112 [facility] [address] [place] [address] Shawn Barber MD 112 [facility] 110 [place] [address] Social History Tobacco Use Types [...] Recorded Patient Health Questionnaire-2 Score 1 11/25/2022 [facility] [place] of Occupat ional Health - Occupational Stress [...] [address] [facility] [address] [place] [address] Shawn Barber MD [address] [facility] [address] [place] [address] 03/15/2025 3:10 PM EST Office Visit [facility] [address] [place] [address] Colt Mendieta, DPM 3006 [facility] 5 [place] [address] documented as of this encounter Visit Diagnoses Not on filedocumented in this encounter Care Teams Balloon Pilot Relationship Specialty Start Date End Date Shawn Barber MD [address] [place] [address] PCP - ACO Reach 09/24/22 Shawn Barber MD [address] [place] [address] PCP - General Internal Medicine 10/22/22WednesdayRandee LPN [address] [place] [address] Licensed Practical Nurse Family Medicine 12/29/22 06/09/24 Becca Campos, NAY [address] [place] [address] Surgical Device Sales Representative Family Medicine 12/29/22 08/24/24 Hilary Frank, RN 14[address] [place] [address] Licensed Practical Nurse Family Medicine 06/09/24 07/21/24 Kaylen Moore LPN [address] [place] [address] 07/21/24 documented as of this encounter
--- OUTSIDE RECORDS SUMMARY | 2025-01-30 09:58 | XMS_ITS | Encounter Summary ---
Author Organization [facility] Address [address] [place] [address] Phone Care Team Providers Care Well Logging Mud Analysis Captain Name Role Phone Shawn Barber MD Primary Care Provider [phone] Shawn Barber MD Primary Care Provider [phone] Shawn Barber MD Unavailable [phone] Encounter Details Date Type Department Care Team (Late st Contact Info) Description 11/21/2022 Scanned Document [facility] [address] [place] [id number] Scanning, Generic Provider Social History Tobacco Use [...] Description 02/15/2025 3:00 PM EDT Office Visit [place] [address] [facility] 250 [place] [address] Rey Canela DO 703 [facility] 2, [address] [place], [place] [address] 05/08/2025 2:30 PM EST Appointment [place] [id number] [facility] [address] [place] [address] 05/10/2025 2:20 PM EST Office Visit [facility] 703 [facility] [address] [place] [address] Rey Canela DO 703 [facility], [address] [place] [address] documented as of this encounter Visit Diagnoses Not on filedocumented in this encounter Care Teams Well Logging Mud Analysis Captain Relationship Specialty Start Date End Date Shawn Barber MD [address] [facility] 110 [place] [address] PCP - General 11/20/22 12/27/22 Shawn Barber MD [address] [facility] 110 [place] [address] PCP - General 12/28/22 Shawn Barber MD [address] [facility] 110 [place] [address] 12/28/22 documented as of this encounter
--- OUTSIDE RECORDS SUMMARY | 2025-01-30 09:58 | XMS_ITS | Encounter Summary ---
Author Organization [facility] Address [address] [facility] [place] [address] Care Team Providers Care Animal Chiropractor Name Role Phone Shawn Barber MD Unavailable [phone] Shawn Barber MD Primary Care Provider [phone] Wednesday, Randee BIOFUELS PROCESSING TECHNICIAN Unavailable [phone] Becca Campos CLIENT REPRESENTATIVE Unavailable Hilary Frank RN Unavailable Kaylen Moore BIOFUELS PROCESSING TECHNICIAN Unavailable Encounter Details Date Type Department Care Team (Late st Contact Info) Description 10/21/2023 Abstract [facility] [place] [facility] 112 [facility] 110 [place] [address] Shawn Braber MD 112 [facility] 110 [place] [address] Social History Tobacco Use Types [...] Recorded Patient Health Questionnaire-2 Score 1 11/25/2022 [facility] [place] of Occupat ional Health - Occupational Stress [...] Visit [facility] [place] [facility] [address] [facility] 110 [place] [address] Shawn Barber MD [address] [facility] 110 [place] [address] 03/15/2025 3:10 PM EST Office Visit [facility] [address] [place] [address] Colt Mendieta, DPM 3006 [facility] 5 [place] [address] documented as of this encounter Visit Diagnoses Not on filedocumented in this encounter Care Teams Animal Chiropractor Relationship Specialty Start Date End Date Shawn Barber MD [address] [place] [address] PCP - ACO Reach 09/24/22 Shawn Barber MD [address] [place] [address] PCP - General Internal Medicine 10/22/22WednesdayRandee LPN [address] [place] [address] Licensed Practical Nurse Family Medicine 12/29/22 06/09/24 Becca Campos, NAY [address] [place] [address] Reverse Engineer Family Medicine 12/29/22 08/24/24 Hilary Frank, RN 14[address] [place] [address] Licensed Practical Nurse Family Medicine 06/09/24 07/21/24 Kaylen Moore LPN [address] [place] [address] 07/21/24 documented as of this encounter
--- OUTSIDE RECORDS SUMMARY | 2025-01-30 09:58 | XMS_ITS | Encounter Summary ---
Author Organization [facility] Address [address] [place] [address] Phone Care Team Providers Care Ballroom Dancer Name Role Phone Shawn Barber MD Primary Care Provider [phone] Shawn Barber MD Primary Care Provider [phone] Shawn Barber MD Unavailable [phone] Encounter Details Date Type Department Care Team (Late st Contact Info) Description 12/19/2022 Orders Only [facility] [address] [place] [address] Conversion, Onbase Social History Tobacco Use Types [...] 02/15/2025 3:00 PM EDT Office Visit [address] [place] [address] Rey Canela DO 703 [facility] 2, [address] [place] [address] 05/08/2025 2:30 PM EST Appointment [place] [address] [facility] [address] [place] [address] 05/10/2025 2:20 PM EST Office Visit [facility] 703 [facility] [address] [place] [address] Rey Canela, 703 [facility] [address], [address] [place] [address] Scheduled Orders Name Type Priority Associated Diagnoses Orde r Schedule OUTSIDE LAB SCAN Lab Ordered: 12/19/2022 documented as of this encounter Visit Diagnoses Not on filedocumented in this encounter Care Teams Ballroom Dancer Relationship Specialty Start Date End Date Shawn Barber MD [address] [facility] 110 [place] [address] PCP - General 11/20/22 12/27/22 Shawn Barber MD [address] [facility] 110 [place] [address] PCP - General 12/28/22 Shawn Barber MD [address] [facility] 110 [place] [address] 12/28/22 documented as of this encounter
--- OUTSIDE RECORDS SUMMARY | 2025-01-30 09:58 | XMS_ITS | Encounter Summary ---
Author Organization [facility] Address [address] [facility] [place] [address] Care Team Providers Care Surgery Tech Name Role Phone Shawn Barber MD Unavailable [phone] Shawn Barber MD Primary Care Provider Wednesday, Randee SCIENCE EDUCATION PROFESSOR Unavailable [phone] Becca Campos DEAN OF STUDENT SERVICES Unavailable [phone] Hilary Frank RN Unavailable [phone] Kaylen Moore SCIENCE EDUCATION PROFESSOR Unavailable Encounter Details Date Type Department Care Team (Late st Contact Info) Description 07/07/2023 Abstract [facility] [place] [facility] 112 [facility] 110 [place] [address] Shawn Barber MD 112 [facility] 110 [place] [address] Social History Tobacco Use Types [...] Recorded Patient Health Questionnaire-2 Score 1 11/25/2022 [facility] [place] of Occupat ional Health - Occupational Stress [...] [facility] [place] [facility] [address] [facility] 110 [place] [address] Shawn Barber MD [address] [facility] 110 [place] [address] 03/15/2025 3:10 PM EST Office Visit [facility] [address] [place] [address] Colt Mendieta, DPM 3006 [facility] 5 [place] [address] documented as of this encounter Visit Diagnoses Not on filedocumented in this encounter Care Teams Surgery Tech Relationship Specialty Start Date End Date Shawn Barber MD [address] [place] [address] PCP - ACO Reach 09/24/22 Shawn Barber MD [address] [place] [address] PCP - General Internal Medicine 10/22/22WednesdayRandee LPN [address] [place] [address] Licensed Practical Nurse Family Medicine 12/29/22 06/09/24 Becca Campos, NAY [address] [place] [address] Content Management Consultant Family Medicine 12/29/22 08/24/24 Hilary Frank, RN 14[address] [place] [address] Licensed Practical Nurse Family Medicine 06/09/24 07/21/24 Kaylen Moore LPN [address] [place] [address] 07/21/24 documented as of this encounter
--- OUTSIDE RECORDS SUMMARY | 2025-01-30 09:58 | XMS_ITS | Encounter Summary ---
Author Organization [facility] Address [address] [facility] [place] [address] Care Team Providers Care Payroll Supervisor Name Role Phone Shawn Barber MD Unavailable [phone] Shawn Barber MD Primary Care Provider Wednesday, Randee PHARMACY SCHEDULER Unavailable [phone] Becca Campos TIP PUNCHER Unavailable Hilary Frank RN Unavailable Kaylen Moore PHARMACY SCHEDULER Unavailable Encounter Details Date Type Department Care Team (Late st Contact Info) Description 11/02/2023 Abstract [facility] [place] [facility] 112 [facility] 110 [place] [address] Shawn Barber MD 112 [facility] 110 [place] [address] Social History Tobacco Use Types [...] 11/25/2022 [facility] [place] of Occupat ional Health - Occupational Stress [...] [facility] [place] [address] [facility] 110 [place] [address] Shawn Barber MD [address] [facility] 110 [place] [address] 03/15/2025 3:10 PM EST Office Visit [facility] [address] [place] [address] Colt Mendieta, DPM 3006 [facility] 5 [place] [address] documented as of this encounter Visit Diagnoses Not on filedocumented in this encounter Care Teams Payroll Supervisor Relationship Specialty Start Date End Date Shawn Barber MD [address] [place] [address] PCP - ACO Reach 09/24/22 Shawn Barber MD [address] [place] [address] PCP - General Internal Medicine 10/22/22WednesdayRandee LPN [address] [place] [address] Licensed Practical Nurse Family Medicine 12/29/22 06/09/24 Becca Campos, NAY [address] [place] [address] Licensed Marine Engineer Family Medicine 12/29/22 08/24/24 Hilary Frank, RN [address] [place] [address] Licensed Practical Nurse Family Medicine 06/09/24 07/21/24 Kaylen Moore LPN [address] [place] [address] 07/21/24 documented as of this encounter
--- OUTSIDE RECORDS SUMMARY | 2025-01-30 09:58 | XMS_ITS | Encounter Summary ---
Author Organization [facility] Address [address] [place] [address] Phone Care Team Providers Care Rayon Tester Name Role Phone Shawn Barber MD Primary Care Provider [phone] Shawn Barber MD Primary Care Provider [phone] Shawn Barber MD Unavailable [phone] Encounter Details Date Type Department Care Team (Late st Contact Info) Description 11/18/2022 Scanned Document [facility] [address] [place] [phone] Scanning, Generic Provider Social History Tobacco Use [...] Description 02/15/2025 3:00 PM EDT Office Visit [place] [id number] [facility] 250 [place] [address] Rey Canela DO 703 [facility] 2, [address] [place], [place] [address] 05/08/2025 2:30 PM EST Appointment [place] [address] [facility] [address] [place] [address] 05/10/2025 2:20 PM EST Office Visit [facility] [address] [place] [address] Rey Canela DO [address], [address] [place] [address] documented as of this encounter Procedures Procedure Name Priority Date/Time Associated Diagnosis Comments OUTSIDE IMAGING SCAN 11/18/2022 documented in this encounter Results * OUTSIDE IMAGING SCAN (11/18/2022) Anatomical Region Laterality Modality Other Narrative 11/18/2022 Ordered by an unspecified provider. us Generic Provider Scanning OUTSIDE SCAN Final Result documented in this encounter Visit Diagnoses Not on filedocumented in this encounter Care Teams Rayon Tester Relationship Specialty Start Date End Date Shawn Barber MD [address] [facility] 110 [place] [address] PCP - General 11/20/22 12/27/22 Shawn Barber MD [address] [facility] [address] [place] [address] PCP - General 12/28/22 Shawn Barber MD [address] [facility] 110 [place] [address] 12/28/22 documented as of this encounter
--- OUTSIDE RECORDS SUMMARY | 2025-01-30 09:58 | XMS_ITS | Encounter Summary ---
Author Organization [facility] Address [address] [facility] [place] [address] Care Team Providers Care Crew Team Member Name Role Phone Shawn Barber MD Unavailable [phone] Shawn Barber MD Primary Care Provider [phone] Wednesday, Randee SHEET METAL ASSEMBLER Unavailable [phone] Becca Campos END LATHE OPERATOR Unavailable Hilary Frank RN Unavailable [phone] Kaylen Moore SHEET METAL ASSEMBLER Unavailable Encounter Details Date Type Department Care Team (Late st Contact Info) Description 07/08/2023 Abstract [facility] [place] [facility] 112 [facility] 110 [place] [address] Shawn Barber MD 112 [facility] 110 [place] [address] Social History [...] Questionnaire-2 Score 1 11/25/2022 [facility] [place] of Occupat ional Health - Occupational Stress [...] [facility] [place] [facility] [address] [facility] 110 [place] [address] Shawn Barber MD [address] [facility] 110 [place] [address] 03/15/2025 3:10 PM EST Office Visit [facility] [address] [place] [address] Colt Mendieta, DPM 3006 [facility] 5 [place] [address] documented as of this encounter Visit Diagnoses Not on filedocumented in this encounter Care Teams Crew Team Member Relationship Specialty Start Date End Date Shawn Barber MD [address] [place] [address] PCP - ACO Reach 09/24/22 Shawn Barber MD [address] [place] [address] PCP - General Internal Medicine 10/22/22WednesdayRandee LPN [address] [place] [address] Licensed Practical Nurse Family Medicine 12/29/22 06/09/24 Becca Campos, NAY [address] [place] [address] Enamel Applier Family Medicine 12/29/22 08/24/24 Hilary Frank, RN [address] [place] [address] Licensed Practical Nurse Family Medicine 06/09/24 07/21/24 Kaylen Moore LPN [address] [place] [address] 07/21/24 documented as of this encounter
[2025-01-30 10:39] LABS: Albumin Level 1.6 g/dL (3.4-5.0); Anion Gap 10.1; Blood Urea Nitrogen 8.0 mg/dL (7.0-18.0); Calcium 7.1 mg/dL (8.5-10.1); Carbon Dioxide 24.6 mmol/L (21.0-32.0); Chloride 103 mmol/L (98-107); Estimated GFR (African America 28 (>=60 mL/min/1.73m^2); Estimated GFR (Non-African Ame 23 (>=60 mL/min/1.73m^2); Glucose 112 mg/dL (74-106); Magnesium 1.6 mg/dL (1.8-2.4); Potassium 3.7 mmol/L (3.5-5.1); Sodium 134 mmol/L (136-145)
[2025-01-30 10:52] LABS: Hematocrit 33.9 % (36.0-48.0); Hemoglobin 10.0 g/dL (12.0-16.0); Mean Corpuscular HGB Conc 29.5 g/dL (29.9-35.2); Mean Corpuscular Hemoglobin 29.9 pg (26.7-34.0); Mean Corpuscular Volume 101.2 fL (81.0-99.0); Platelet Count 215 10^3/uL (150-450); Red Blood Count 3.35 10^6/uL (4.20-5.40); White Blood Count 8.3 10^3/uL (4.0-11.0)
[2025-01-30 11:06] LABS: Iron 31.0 ug/dL (50.0-170.0); Percent Iron Saturation 47.7 %; Total Iron Binding Capacity 65.0 ug/dL (250.0-450.0)
[2025-01-30 11:27] LABS: Ferritin 987.0 ng/mL (8.0-252.0)
== END 2025-01-30 09:48 | disposition home or self-care (01) ==
LOC: LAB 09:48
PROVIDERS: PCP Internal Medicine; Visit Provider Internal Medicine Nephrology
DX: N18.9 Chronic kidney disease, unspecified (principal); N25.81 Secondary hyperparathyroidism of renal origin; D63.1 Anemia in chronic kidney disease; N18.31 Chronic kidney disease, stage 3a; E83.42 Hypomagnesemia
CPT/HCPCS: 36415; 80069; 82728; 83540; 83550; 83735; 83970; 85027